=== PATIENT | female | born 1965 | race Caucasian/White ===

== ENCOUNTER 2023-11-19 07:33 | Outpatient (RCR) | payer MEDICARE, MEDICAID, SELFPAY ==
[2023-11-19 10:24] LABS: Basophils Percent Auto 0.5 % (0.2-2.0); Eosinophils Absolute Auto 0.9 10^3/uL (0.0-0.7); Eosinophils Percent Auto 11.6 % (0.9-7.0); Hematocrit 36.8 % (36.0-48.0); Immature Granulocytes Abs Auto 0.02 10^3/uL (0.00-0.03); Immature Granulocytes Pct Auto 0.3 % (0.0-0.5); Lymphocytes Absolute Auto 2.4 10^3/uL (1.2-3.8); Lymphocytes Percent Auto 29.6 % (20.5-60.0); Mean Corpuscular HGB Conc 32.6 g/dL (29.9-35.2); Mean Corpuscular Hemoglobin 31.1 pg (26.7-34.0); Mean Corpuscular Volume 95.3 fL (81.0-99.0); Mean Platelet Volume 8.9 fL (9.5-13.5); Monocytes Absolute Auto 0.4 10^3/uL (0.3-0.8); Monocytes Percent Auto 5.4 % (1.7-12.0); Neutrophils Absolute Auto 4.2 10^3/uL (1.4-6.5); Neutrophils Percent Auto 52.6 % (43.0-75.0); Platelet Count 273 10^3/uL (150-450); Red Blood Count 3.86 10^6/uL (4.20-5.40); Red Cell Distribution Width 13.4 % (11.0-15.0)
[2023-11-19 10:35] LABS: Estimated Average Glucose 140 mg/dL; Glycohemoglobin A1C 6.5 % (4.5-6.2)
[2023-11-19 11:47] LABS: Alanine Aminotransferase 16 U/L (14-59); Albumin Globulin Ratio 0.8; Albumin Level 3.2 g/dL (3.4-5.0); Alkaline Phosphatase 117 U/L (46-116); Aspartate Amino Transferase 14 U/L (15-37); BUN Creatinine Ratio 19.3; Bilirubin Total 0.2 mg/dL (0.2-1.0); Carbon Dioxide 24.6 mmol/L (21.0-32.0); Chloride 103 mmol/L (98-107); Chol HDL Ratio 4.7; Cholesterol 282 mg/dL (<=200); Estimated GFR (African America 45 (>=60 mL/min/1.73m^2); Estimated GFR (Non-African Ame 37 (>=60 mL/min/1.73m^2); Globulin 3.9 g/dL; Glucose 150 mg/dL (74-106); HDL Cholesterol 60 mg/dL (40-60); Potassium 4.6 mmol/L (3.5-5.1); Sodium 137 mmol/L (136-145); TSH W/ REFLEX FT4 2.571 uIU/mL (0.358-3.740); Total Protein 7.1 g/dL (6.4-8.2); Triglycerides 255 mg/dL (<=150)
== END 2023-12-18 11:50 | disposition home or self-care (01) ==
LOC: LAB 07:33
PROVIDERS: PCP Family Medicine; Visit Provider Nurse Practitioner
DX: I12.9 Hypertensive chronic kidney disease with stage 1 through stage 4 chronic kidney disease, or unspecified chronic kidney disease (principal); E03.9 Hypothyroidism, unspecified; E78.5 Hyperlipidemia, unspecified; E11.22 Type 2 diabetes mellitus with diabetic chronic kidney disease
CPT/HCPCS: 36415; 80053; 80061; 83036; 84443; 85025

== ENCOUNTER 2023-12-19 20:23 | Emergency (ER) | payer MEDICARE, MEDICAID, SELFPAY ==
[2023-12-19 20:32] VITALS: BP 200/100; PULSE 110; TEMP 36.8; O2SAT 97; BMI 31.0
--- NOTE | 2023-12-19 20:41 | ED.NAVMDI1 ---
HPI - Nausea/Vomiting/Diarrhea General Chief complaint: Nausea/Vomiting/Diarrhea Stated complaint: shortness of breath Time Seen by Provider: 12/19/23 20:40 Source: EMR and medical record Mode of arrival: ambulance History of Present Illness HPI Narrative: patient with very complicated history but limited as she is not exactly sure what she had and what was all done to her. 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 Required surgery. states she was comatose but not sure how long. Did require tracheostomy. States she has diplopia when looking to the left(chronic). neck is rigid and ROM is chronically limited. she states she has had problems swallowing for at least 3 weeks if not longer. States voice hoarse since she had trach. she has problems swallowing and a sensation of swelling of her throat for these three weeks. States water goes down fairly well . She has to eat small amounts in order to swallow her food. Even with this she gags and coughs most of the time but does manage to get the food down. Has same problem with swallowing of pills. feels like they get stuck. Did eat her dinner tonight. Ate a veggie burger. Usual problems swallowing but manage to complete her meal. While swallowing pills tonight she started gagging and coughing. given water by nursing and she gag and cough and started vomiting the water. Nursing called Squad. she arrives in no distress. voice is hoarse. Able to swallow her saliva but does appear uncomfortable doing so but states this is what she has been dealing with. Has a swallow study ordered for 12/22/23. She is not short of breath. No fever or nausea or abdominal pain Related Data Home Medications ?Medication ?Instructions ?Recorded ?Confirmed aspirin 325 mg tablet 325 mg PO DAILY 12/19/23 12/19/23 brimonidine 0.2 % eye drops 1 drp ophthalmic (eye) BID 12/19/23 12/19/23 carvedilol 12.5 mg tablet 12.5 mg PO Q12H 12/19/23 12/19/23 cholecalciferol (vitamin D3) 10 400 unit PO DAILY 12/19/23 12/19/23 mcg (400 unit) tablet (Vitamin D3) divalproex 500 mg tablet,delayed 500 mg PO DAILY 11/01/24 11/01/24 release docusate sodium 100 mg capsule 100 mg PO BID PRN constipation 12/19/23 12/19/23 duloxetine 30 mg capsule,delayed 30 mg PO DAILY 12/19/23 12/20/23 release duloxetine 60 mg capsule,delayed 60 mg PO DAILY 12/19/23 12/19/23 release ferrous sulfate 325 mg (65 mg 325 mg PO DAILY 12/19/23 12/19/23 iron) tablet fluocinonide 0.05 % topical 1 applic topical DAILY PRN rash 12/19/23 12/20/23 ointment guaifenesin 100 mg/5 mL oral liquid 200 mg PO Q6H PRN congestion 12/19/23 12/19/23 guaifenesin 600 mg tablet, 600 mg PO BID PRN congestion 12/19/23 12/19/23 extended release 12 hr (Mucinex) insulin glargine 100 unit/mL (3 15 unit subcut DAILY 12/19/23 12/19/23 mL) subcutaneous pen (Lantus Solostar U-100 Insulin) levothyroxine 100 mcg tablet 100 mcg PO DAILY 12/19/23 12/19/23 loperamide 2 mg capsule 2 mg PO Q6H PRN loose stool 12/19/23 12/19/23 metoclopramide HCl 5 mg tablet 5 mg PO TID PRN nausea and vomiting 12/19/23 12/19/23 multivitamin 1 tab PO DAILY 12/19/23 12/19/23 omeprazole 40 mg capsule,delayed 40 mg PO DAILY 12/19/23 12/19/23 release potassium chloride 20 mEq 20 meq PO DAILY 12/19/23 12/19/23 tablet,extended release(part/cryst) sucralfate 100 mg/mL oral 1 g PO TID 12/19/23 12/19/23 suspension (Carafate) tramadol 50 mg tablet 50 mg PO Q12H 12/19/23 12/19/23 Allergies Allergy/AdvReac Type Severity Reaction Status Date / Time cephalexin Allergy Unknown Verified 12/19/23 20:32 moxifloxacin (From Avelox) Allergy Unknown Verified 12/19/23 20:32 polyethylene glycol 3350 Allergy Unknown Verified 12/19/23 20:32 (From Miralax) Review of Systems ROS Status of ROS 10 or more systems reviewed and unremarkable except as noted in history and below PFSH PFSH Social History Little interest or pleasure in doing things: not at all Feeling down, depressed, or hopeless: not at all Exam Constitutional Vital Signs, click to edit/add: Last Vital Signs Temp 98.3 F 12/19/23 20:32 Pulse 84 12/19/23 21:13 Resp 20 12/19/23 21:13 BP 145/69 H 12/19/23 21:13 Pulse Ox 98 12/19/23 21:13 O2 Del Method Room Air 12/19/23 21:13 Common normals: oriented x3, healthy appearing, alert and well nourished Other: mild hoarse voice HENMT Common normals: normocephalic and head/scalp atraumatic Other: oral cavity is dry. No stridor Eye Common normals: PERRL and EOMs intact bilaterally Other: when she looks full robb to the left she describes diplopia( chronic). no nystagmus Respiratory Common normals: normal respiratory effort Cardio Common normals: regular rate, regular rhythm, S1 normal heart sound and S2 normal heart sound GI Common normals: Normal to inspection, nondistended, normoactive bowel sounds present, soft to palpation and non-tender Extremity Other: moves all 4 extremities. has brace RLE Neuro Common normals: oriented x3 and CN's II-XII intact bilaterally Psych Appearance: grossly normal Course Vital Signs Vital signs: Vital Signs Temperature 98.3 F 12/19/23 20:32 Pulse Rate 110 H 12/19/23 20:32 Respiratory Rate 22 H 12/19/23 20:32 Blood Pressure 200/100 H 12/19/23 20:32 Pulse Oximetry 97 12/19/23 20:32 Oxygen Delivery Method Room Air 12/19/23 20:32 Temperature 98.3 F 12/19/23 20:32 Pulse Rate 84 12/19/23 21:13 Respiratory Rate 20 12/19/23 21:13 Blood Pressure 145/69 H 12/19/23 21:13 Pulse Oximetry 98 12/19/23 21:13 Oxygen Delivery Method Room Air 12/19/23 21:13 MDM - Nausea/Vomiting/Diarrhea MDM Narrative Medical decision making narrative: patient presents with history of ongoing dysphagia for past 3 weeks. Tonight gagging and coughing and then post tussive emesis. Sent to ER by Nursing at senior living. Workup in the ER initiated to evaluate her complaint of a sensation of swelling of her throat. Oral exam unremarkable but limited as she is mallampati class 4. no stridor on exam. Chest xray to r/o aspiration and chest xray clear CT soft tissue neck without findings of any swelling or acute findings. Did have calcification at vocal cords. Patient resting comfortably in no distress and discharged back to senior living to continue workup for the cause of he dysphagia Lab Data Labs: Lab Results 12/19/23 Range/Units 21:10 WBC 7.8 (4.0-11.0) 10^3/uL RBC 3.55 L (4.20-5.40) 10^6/uL Hgb 11.1 L (12.0-16.0) g/dL Hct 34.0 L (36.0-48.0) % MCV 95.8 (81.0-99.0) fL MCH 31.3 (26.7-34.0) pg MCHC 32.6 (29.9-35.2) g/dL RDW 13.2 (11.0-15.0) % Plt Count 218 (150-450) 10^3/uL MPV 9.0 L (9.5-13.5) fL Neut % (Auto) 53.2 (43.0-75.0) % Lymph % (Auto) 35.0 (20.5-60.0) % [place] % (Auto) 6.4 (1.7-12.0) % Eos % (Auto) 4.9 (0.9-7.0) % Baso % (Auto) 0.4 (0.2-2.0) % Neut # (Auto) 4.2 (1.4-6.5) 10^3/uL Lymph # (Auto) 2.7 (1.2-3.8) 10^3/uL [place] # (Auto) 0.5 (0.3-0.8) 10^3/uL Eos # (Auto) 0.4 (0.0-0.7) 10^3/uL Baso # (Auto) 0.0 (0.0-0.1) 10^3/uL Abs Immat Gran (auto) 0.01 (0.00-0.03) 10^3/uL Imm/Tot Granulo (auto) 0.1 (0.0-0.5) % Sodium 140 (136-145) mmol/L Potassium 4.7 (3.5-5.1) mmol/L Chloride 109 H (98-107) mmol/L Carbon Dioxide 20.3 L (21.0-32.0) mmol/L Anion Gap 15.4 BUN 36.0 H (7.0-18.0) mg/dL Creatinine 1.52 H (0.55-1.02) mg/dL Est GFR ( Amer) 42 L (>=60 mL/min/1.73m^2) Est GFR (Non-Af Amer) 35 L (>=60 mL/min/1.73m^2) BUN/Creatinine Ratio 23.7 Glucose 222 H (74-106) mg/dL Lactate 2.0 (0.4-2.0) mmol/L Calcium 8.7 (8.5-10.1) mg/dL Total Bilirubin 0.2 (0.2-1.0) mg/dL AST 9 L (15-37) U/L ALT 13 L (14-59) U/L Alkaline Phosphatase 93 (46-116) U/L Total Protein 6.9 (6.4-8.2) g/dL Albumin 3.3 L (3.4-5.0) g/dL Globulin 3.6 g/dL Albumin/Globulin Ratio 0.9 Imaging Data Chest x-ray: Radiologist's impression: ITS Impressions Soft Tissue Neck CT 12/19/23 20:52 IMPRESSION: 1. Asymmetric calcification in the region of the left cricoarytenoid joint with subtle medialization of the posterior aspect of the vocal fold on the left. Recommend direct visualization. No enhancing masses are seen. No pathologic adenopathy. 2. Evidence of old posttraumatic and postsurgical changes in the cervical spine. No acute fracture is seen. Multilevel cervical and upper thoracic spondylosis is noted. Electronically authenticated by: KIKE MAGUIRE Date: 12/20/2023 00:33 Chest X-Ray 12/19/23 20:53 IMPRESSION: No acute cardiopulmonary process in the chest. Electronically authenticated by: FAVIO BALLESTEROS Date: 12/20/2023 00:18 Discharge Plan Discharge Chief Complaint: Nausea/Vomiting/Diarrhea Clinical Impression: Dysphagia Patient Disposition: Home, Self-Care Prescriptions / Home Meds: No Action aspirin 325 mg tablet 325 mg PO DAILY brimonidine 0.2 % drops 1 drp OPHTHALMIC (EYE) BID carvedilol 12.5 mg tablet 12.5 mg PO Q12H cholecalciferol (vitamin D3) [Vitamin D3] 10 mcg (400 unit) tablet 400 unit PO DAILY divalproex 500 mg tablet,delayed release (DR/EC) 500 mg PO DAILY docusate sodium 100 mg capsule 100 mg PO BID PRN (Reason: constipation) duloxetine 30 mg capsule,delayed release(DR/EC) 30 mg PO DAILY duloxetine 60 mg capsule,delayed release(DR/EC) 60 mg PO DAILY ferrous sulfate 325 mg (65 mg iron) tablet 325 mg PO DAILY fluocinonide 0.05 % ointment 1 applic TOPICAL DAILY PRN (Reason: rash) sucralfate [Carafate] 100 mg/mL suspension 1 g PO TID insulin glargine [Lantus Solostar U-100 Insulin] 100 unit/mL (3 mL) insulin pen 15 unit subcut DAILY levothyroxine 100 mcg tablet 100 mcg PO DAILY loperamide 2 mg capsule 2 mg PO Q6H PRN (Reason: loose stool) metoclopramide HCl 5 mg tablet 5 mg PO TID PRN (Reason: nausea and vomiting) guaifenesin [Mucinex] 600 mg tablet extended release 12hr 600 mg PO BID PRN (Reason: congestion) multivitamin Tablet 1 tab PO DAILY omeprazole 40 mg capsule,delayed release(DR/EC) 40 mg PO DAILY potassium chloride 20 mEq tablet,ER particles/crystals 20 meq PO DAILY guaifenesin 100 mg/5 mL liquid 200 mg PO Q6H PRN (Reason: congestion) tramadol 50 mg tablet 50 mg PO Q12H Print Language: Urdu Instructions: Dysphagia (ED) Additional Instructions: follow up with your doctor to continue workup to identify why food etc gets stuck going down into your esophagus Referrals: NERI SANTA [Physician] - 1 week
--- NOTE | 2023-12-19 20:52 | CT_ITS ---
The [address] [address] Patient Name: MEG FERNANDEZ MRN: [id number] date: 1965 Sex: F Assigned Patient Location: ED.MAIN Current Patient Location: Accession/Order Number: [id number] Exam Date: 12/19/2023 22:00 Report Date: 12/20/2023 00:33 At the request of: PHUONG WILLIS Procedure: CT soft tissue neck w con EXAM: CT soft tissue neck w con INDICATION: 58 years old; Female. Symptom/Location/Duration: Throat feels swollen. Cough and difficulty swallowing. Patient had swallowing study scheduled for next week. TECHNIQUE: CT examination of the neck. Axial, coronal and sagittal reformats were reviewed. 100 mL of Visipaque to 70 was injected intravenously without complication. Ionizing radiation dose reduced via iterative reconstruction/FBP blend and body size kV/mA adjustment. COMPARISON: None FINDINGS: AIRWAY: PARANASAL SINUSES AND MASTOID AIR CELLS: Postsurgical changes with prior maxillary antrostomy. Frontal sinuses are not completely included. Visualized sinuses are clear. Mastoids and middle ears are clear. NASOPHARYNX: Normal in appearance. OROPHARYNX: Normal in appearance. ORAL CAVITY: Normal in appearance. HYPOPHARYNX: Normal in appearance. LARYNX: There is calcification and bony overgrowth noted in the region of the left cricoarytenoid joint with medialization of the posterior aspect of the vocal fold on the left. Recommend direct visualization. TRACHEA: Patent. SOFT TISSUES: PARAPHARYNGEAL SPACE: Normal and symmetric. CAROTID SPACE: Normal in appearance. CHILD WELFARE SPECIALIST SPACE: Normal in appearance. RETROPHARYNGEAL SPACE: Normal in appearance. LYMPH NODES: No pathologic adenopathy. No matted or necrotic lymph nodes are present. GLANDS: PAROTID: Normal in appearance. SUBMANDIBULAR: Normal in appearance. THYROID: No thyroid nodule or adenopathy. MISCELLANEOUS: LUNG APICES: Clear. BONY CERVICAL SPINE: Postsurgical changes are present in the region of C1-C2 with findings consistent with fixation of old C1-2 fracture. There is bony trabeculation across the previous fracture. No acute fracture is seen. Cervical spondylosis is seen in the lower cervical spine with bulky bridging anterior osteophytes at C5-C6 and C6-C7. Multilevel facet degeneration is present. Degenerative changes are also seen in the visualized portion of the upper thoracic spine. VISUALIZED BRAIN: A portion the brain is included in the examination. No gross evidence of pathologic enhancement is seen, however the study does not include the entire brain and cannot exclude all brain pathology. VISUALIZED GLOBES: Retinal banding on the left. DENTITION: No periodontal disease. OTHER: None. CT/CT soft tissue neck w con IMPRESSION: 1. Asymmetric calcification in the region of the left cricoarytenoid joint with subtle medialization of the posterior aspect of the vocal fold on the left. Recommend direct visualization. No enhancing masses are seen. No pathologic adenopathy. 2. Evidence of old posttraumatic and postsurgical changes in the cervical spine. No acute fracture is seen. Multilevel cervical and upper thoracic spondylosis is noted. Electronically authenticated by: KIKE MAGUIRE Date: 12/20/2023 00:33
--- NOTE | 2023-12-19 20:53 | XR_ITS ---
The [address] [address] Patient Name: MEG FERNANDEZ MRN: [id number] date: 1965 Sex: F Assigned Patient Location: ED.MAIN Current Patient Location: ER Accession/Order Number: [id number] Exam Date: 12/19/2023 22:00 Report Date: 12/20/2023 00:18 At the request of: PHUONG WILLIS Procedure: XR chest 2V EXAMINATION:XR chest 2V INDICATION:cough COMPARISON:07/13/2021 TECHNIQUE:Frontal and lateral projections of the chest are submitted. FINDINGS: The cardiomediastinal silhouette is not enlarged. The pulmonary vascularity is within normal limits. No acute airspace disease is present in the chest. There is no costophrenic angle blunting. XR/XR chest 2V IMPRESSION: No acute cardiopulmonary process in the chest. Electronically authenticated by: FAVIO BALLESTEROS Date: 12/20/2023 00:18
[2023-12-19 21:13] VITALS: BP 145/69; PULSE 84; O2SAT 98
[2023-12-19 21:14] LABS: Basophils Percent Auto 0.4 % (0.2-2.0); Eosinophils Absolute Auto 0.4 10^3/uL (0.0-0.7); Eosinophils Percent Auto 4.9 % (0.9-7.0); Hemoglobin 11.1 g/dL (12.0-16.0); Immature Granulocytes Abs Auto 0.01 10^3/uL (0.00-0.03); Immature Granulocytes Pct Auto 0.1 % (0.0-0.5); Lymphocytes Absolute Auto 2.7 10^3/uL (1.2-3.8); Mean Corpuscular HGB Conc 32.6 g/dL (29.9-35.2); Mean Corpuscular Hemoglobin 31.3 pg (26.7-34.0); Mean Corpuscular Volume 95.8 fL (81.0-99.0); Monocytes Absolute Auto 0.5 10^3/uL (0.3-0.8); Monocytes Percent Auto 6.4 % (1.7-12.0); Neutrophils Absolute Auto 4.2 10^3/uL (1.4-6.5); Neutrophils Percent Auto 53.2 % (43.0-75.0); Platelet Count 218 10^3/uL (150-450); Red Blood Count 3.55 10^6/uL (4.20-5.40); Red Cell Distribution Width 13.2 % (11.0-15.0); White Blood Count 7.8 10^3/uL (4.0-11.0)
[2023-12-19 21:31] LABS: Alanine Aminotransferase 13 U/L (14-59); Albumin Globulin Ratio 0.9; Albumin Level 3.3 g/dL (3.4-5.0); Alkaline Phosphatase 93 U/L (46-116); Anion Gap 15.4; Aspartate Amino Transferase 9 U/L (15-37); BUN Creatinine Ratio 23.7; Bilirubin Total 0.2 mg/dL (0.2-1.0); Calcium 8.7 mg/dL (8.5-10.1); Carbon Dioxide 20.3 mmol/L (21.0-32.0); Chloride 109 mmol/L (98-107); Estimated GFR (African America 42 (>=60 mL/min/1.73m^2); Estimated GFR (Non-African Ame 35 (>=60 mL/min/1.73m^2); Globulin 3.6 g/dL; Glucose 222 mg/dL (74-106); Potassium 4.7 mmol/L (3.5-5.1); Sodium 140 mmol/L (136-145); Total Protein 6.9 g/dL (6.4-8.2)
[2023-12-20 02:10] VITALS: BP 135/72; PULSE 80; O2SAT 97
--- OUTSIDE RECORDS SUMMARY | 2023-12-22 03:38 | XMS_ITS | CCD ---
Author Organization [facility] Care Team Providers Care Senior Solutions Engineer Name Role Phone Neri Santa Unavailable Pili Gilliam Unavailable [phone] Reji Miramontes Unavailable Unavailable Unavailable Unavailable Luis Miguel Kaur Unavailable Neri Santa Unavailable Luis Miguel Kaur Unavailable Tisha Arriaga Unavailable Adilson Hernandez Unavailable [phone] Kartik Mejia Unavailable Pili Gilliam Admitting Unavailable Pili Gilliam Attending Unavailable Pili Gilliam Admitting Unavailable Pili Gilliam Attending Unavailable Pili Gilliam Admitting Unavailable Pili Gilliam Attending Unavailable Pili Gilliam Admitting Unavailable Pili Gillima Attending Unavailable Martha Yan Admitting Unavailable Martha Yan Attending Unavailable Ariel Franklin Attending Unavailable Ariel Franklin Admitting Unavailable Joanne Garvin Admitting Unavaila Joanne Carvajal Attending Unavaila Joanne Carvajal Admitting Unavaila ble Joanne Garvin Attending Unavaila ble Neri Santa Primary Care Provider Pili Gilliam Unavailable [phone] Reji Miramontes Unavailable Neri Santa Primary Care Provider GilliamPili antunez Unavailable Reji Miramontes Don Unavailable HOUSE, NERI P Primary Care Unavailable ANDRES LUBIN Attending Un available HOUSE, NERI Admitting Unavailable HOUSE, NERI Attending Unavailable HOUSE, NERI Consulting Unavailable HOUSE, NERI Primary Care Unavailable ZIEBER, LUIS R Consulting Unavailable HOUSE, NERI Primary Care Unavailable HOUSE, NERI Admitting Unavailable HOUSE, NERI Attending Unavailable HOUSE, NERI Consulting Unavailable ZIEBER, LUIS R Consulting Unavailable House, Sr Neri P Primary Care Provider Reji Miramontes Don Unavailable House DONeri P [facility] Fe SOMMER, Reji PALACIOS Don Unavailable MARIELA JR., JEF Attending Unavailable HOUSE, NERI P Primary Care Unavailable MARIELA JR., JEF Attending Unavailable HOUSE, NERI P Primary Care Unavailable MARIELA JR., JEF Attending Unavailable HOUSE, NERI P Primary Care Unavailable MARIELA JR., JEF Attending Unavailable HOUSE, NERI P Primary Care Unavailable MARIELA JR., JEF Attending Unavailable HOUSE, NERI P Primary Care Unavailable MARIELA JR., JEF Attending Unavailable HOUSE, NERI P Primary Care Unavailable MARIELA JR., JEF Attending Unavailable HOUSE, NERI P Primary Care Unavailable MARIELA JR., JEF Attending Unavailable HOUSE, NERI P Primary Care Unavailable MARIELA JR., JEF Attending Unavailable HOUSE, NERI P Primary Care Unavailable MARIELA JR., JEF Attending Unavailable HOUSE, NERI P Primary Care Unavailable MARIELA JR., JEF Attending Unavailable HOUSE, NERI P Primary Care Unavailable MARIELA JR., JEF Attending Unavailable HOUSE, NERI P Primary Care Unavailable MARIELA JR., JEF Attending Unavailable HOUSE, NERI P Primary Care Unavailable MARIELA JR., JEF Attending Unavailable HOUSE, NERI P Primary Care Unavailable MARIELA JR., JEF Attending Unavailable HOUSE, NERI P Primary Care Unavailable MARIELA JR., JEF Attending Unavailable HOUSE, NERI P Primary Care Unavailable HOUSE, NERI P Primary Care Unavailable BAUGH, TIA PALMIRA Attending Unavailabl e PHYSICIAN PHYSICIAN, PCP PCP UNKNOWN~[id number] Primary Care Unavailable ARNOLD, KIKE Consulting Unavailable ANABELL LANG Attending Unavailable ANABELL LANG Admitting Unavailable BANNING, KIKE Consulting Unavailable BANNING, KIKE Consulting Unavailable BAUERLE, CLARISA Consulting Unavailable BAUERLE, CLARISA Consulting Unavailable BAUERLE, CLARISA Consulting Unavailable VAISHALI ERAZO Referring Unavailable PHYSICIAN PHYSICIAN, PCP PCP UNKNOWN~[id number] Primary Care Unavailable House DO, Neri P Primary Care Provider David VIVEROS, Adilson Rizo Unavailable Kartik Mejia MD Unavailable [phone] Tisha Arriaga MD Unavailable Luis Miguel Kaur MD Unavailable Lucas OD, Chris A Unavailable Kartik Mejia MD Unavailable ARINA NERI P Primary Care Unavailable TORI HART Attending Unavailable JEF SIERRA JR. Admitting Unavailable HOUSE, NERI P Primary Care Unavailable TORI HART Referring Unavailable HOUSE, NERI P Primary Care Unavailable NBA FORREST Admitting Unavaila MAC Burkett Consulting Unavailable LEILA LINTON Attending Unavailable House DO, Sr Neri P Primary Care Provider House DO, Sr Neri P Primary Care Provider [phone] JERRY POZO Attending Unavailable HERCHER, JOHNY Referring Unavailable HOUSE, NERI Primary Care Unavailable JERRY POZO Admitting Unavailable KARLOS Shen Attending Provider HOUSE, NERI P Primary Care Unavailable SHARON HERNANDEZ Attending Unavailabl e SELF, SELF Referring Unavailable HOUSE, NERI P Primary Care Unavailable SHARON HERNANDEZ Attending Unavailabl e SELF, SELF Referring Unavailable HOUSE, NERI P Primary Care Unavailable OLGA LIDIA MATOS Attending Unavailable SELF, SELF Referring Unavailable HOUSE, NERI P Primary Care Unavailable HOUSE, NERI P Referring Unavailable NURYS THORNTON Attending Unavailable SHARON HERNANDEZ Attending Unavailabl e HOUSE, NERI P Primary Care Unavailable SELF, SELF Referring Unavailable HOUSE, NERI P Primary Care Unavailable QI KRYSTYNA Referring Unavailable KOSTYK, DESTINY K Attending Unavailable HOUSE, NERI P Primary Care Unavailable QI, KRYSTYNA Referring Unavailable ANAM BULLARD Attending Unavailable HOUSE, NERI P Primary Care Unavailable MATSANIA FRAGOSO Attending Unavailable QI, KRYSTYNA Referring Unavailable HOUSE, NERI P Primary Care Unavailable QI, KRYSTYNA Referring Unavailable GILES RUIZ Attending Unavailable HOUSE, NERI P Primary Care Unavailable QI, KRYSTYNA Referring Unavailable KATAKI, BENJI Attending Unavailable QI, KRYSTYNA Referring Unavailable KATAKI, BENJI Attending Unavailable HOUSE, NERI P Primary Care Unavailable SELF, SELF Referring Unavailable OLGA LIDIA MATOS Attending Unavailable HOUSE, NERI P Primary Care Unavailable HOUSE, NERI P Primary Care Unavailable BENAMELIS, NURYS R Referring Unavailable JOVON BOWERS Attending Unavailable SHIRAZ, SANIA Attending Unavailable QI, KRYSTYNA Referring Unavailable HOUSE, NERI P Primary Care Unavailable HOUSE, NERI P Primary Care Unavailable SELF, SELF Referring Unavailable OLGA LIDIA MATOS Attending Unavailable HOUSE, NERI P Primary Care Unavailable QI, KRYSTYNA Referring Unavailable DESTINY HUSSEIN K Attending Unavailable HOUSE, NERI P Primary Care Unavailable SHARON HERNANDEZ Attending Unavailabl e SELF, SELF Referring Unavailable DAVIDSHARON ZURITA Attending Unavailabl e SELF, SELF Referring Unavailable HOUSE, NERI P Primary Care Unavailable HOUSE, NERI P Primary Care Unavailable SHARON HERNANDEZ Attending Unavailabl e SELF, SELF Referring Unavailable HOUSE, NERI P Primary Care Unavailable HOUSE, NERI P Primary Care Unavailable HOUSE, NERI P Referring Unavailable BENAMENURYS HAYS R Attending Unavailable HOUSE, NERI P Primary Care Unavailable SELF, SELF Referring Unavailable OLGA LIDIA MATOS Attending Unavailable QI, KRYSTYNA Referring Unavailable KATAKI, BENJI Attending Unavailable HOUSE, NERI P Primary Care Unavailable Ganga Savage MD Primary Care Provider [phone] Rufus Shen Attending Unavailable Rufus Shen Admitting Unavailable Ganga Savage MD Primary Care Provider GANGA SAVAGE Primary Care Unavailable ALISIA, ALISIA VAISHALI Referring Unavailable ALISIA, ALISIA VAISHALI Referring Unavailable GANGA SAVAGE Primary Care Unavailable ALISIA, ALISIA VAISHALI Referring Unavailable GANGA SAVAGE Primary Care Unavailable House Neri VIVEROS Primary Care Provider NADIA CHAUDHARY Attending Unavailable Jami Onofre Attending Unavailable Jami Onofre Attending Unavailable Jami Onofre Attending Unavailable RUFUS SHEN Admitting Unavailable RUFUS SHEN Attending Unavailable ALAHMAD Alaa Admitting Unavailable ALAHMANNA Alaa Attending Unavailable Yaritza Evans Consulting Unavailable Wil Putnam Attending Unavailable Michelle MARMOLEJO Admitting Unavailable Nathan Ambrosio, LARA Shi Consulting Unavail able Yaritza Evans Consulting Unavailable Wil Putnam Attending Unavailable Giulia Finnegan Talal Consulting Unavaila ble Nettie BOOKER Admitting Unavailable MD Giulia Finnegan Talal Consulting Unava ilable Sarminmagdalena, Giulia Talal Consulting Unavaila ble Sarminmagdalena, Giulia Talal Consulting Unavaila ble Joanne Templeton Attending Unavailable SarminiGiulia Talal Attending Unavaila ble Sarmini, Giulia Talal Referring Unavaila ble Sarmini, Giulia Talal Admitting Unavaila ble Sarmini, Giulia Talal Attending Unavaila ble Sarmini, Giulia Talal Referring Unavaila ble Sarmini, Giulia Talal Admitting Unavaila ble MIGUEL BARKSDALE Admitting Unavail able MIGUEL BARKSDALE Attending Unavail able RUFUS SHEN Referring Unavailable MIGUEL BARKSDALE Referring Unavail able JAY INTERIANO Admitting Unavailable JAY INTERIANO Attending Unavailable RUFUS SHEN Admitting Unavailable RUFUS SHEN Attending Unavailable Giulia Finnegan Attending Unavaila Ina Reich Attending Unavailable Allergies Allergy Classification Reported Allergen(s) Allergy Type Date of Onset Reaction(s) Facility Cephalosporins (antibiotic) (3 sources) Cephalexin Drug Allergy 04-07-19 18 Itching [facility] Opioid Agonists (3 sources) tapentadol Drug Allergy 04-07-19 18 Unknown [facility] Quinolones (antibiotic) (3 sources) moxifloxacin Drug Allergy 04-07-19 18 Itching, Swelling, Rash, Other (See Comments) [facility] (20 sources) cephalexin; Translations: [CEPHALEXIN] Propensity to adverse reactions to drug 12-02-19 12 Itching, Rash [facility] (20 sources) moxifloxacin; Translations: [MOXIFLOXACIN] Propensity to adverse reactions to drug 12-02-19 12 Itching, Swelling, Rash, Other (See Comments) [facility] (20 sources) tapentadol; Translations: [TAPENTADOL] Propensity to adverse reactions to drug 04-07-19 18 Unknown [facility] (15 sources) polyethylene glycol 3350 / potassium chloride / sodium bicarbonate / sodium chloride / sodium sulfate Drug Allergy 10-29-19 17 [facility] Work Phone: (20 sources) tapentadol Drug Allergy 10-31-19 16 Other (See Comments) [facility] Work Phone: (3 sources) Cephalexin; Translations: [Keflex] Drug Allergy 06-23-19 10 [facility] Repository (3 sources) moxifloxacin; Translations: [Avelox] Drug Allergy 06-23-19 10 [facility] Rep[facility] (3 sources) tapentadol; Translations: [Nucynta] Drug Allergy 06-30-19 13 [facility] Repository (1 source) Bacitracin / Neomycin / Polymyxin B Drug Allergy 06-23-19 10 The [facility] Repository (1 source) Calcium oxide Drug Allergy 06-23-19 10 [facility] (1 source) POLYETHYLENE GLYCOL 3350 Drug Allergy 08-21-19 22 [facility] Rep[facility] (1 source) Sulfamethoxazole / Trimethoprim Drug Allergy 06-23-19 10 [facility] Rep[facility] (1 source) fentaNYL; Translations: [fentaNYL] Drug Allergy [facility] Repository (1 source) POLYETHYLENE GLYCOL 3350 / Potassium Chloride / Sodium Bicarbonate / Sodium Chloride / sodium sulfate; Translations: [GoLYTELY] Drug Allergy [facility] Repository (1 source) Shellfish; Translations: [shellfish] Propensity to adverse reactions (disorder) [facility] Repository (1 source) Shrimp product; Translations: [Shrimp] Propensity to adverse reactions (disorder) [facility] Repository Medications Current Medications Medication Drug Class(es) Dates Sig (Normalized) Sig (Original) acetaminophen 300 mg / codeine phosphate 30 mg oral tablet (20 sources) Opioid Agonist Start: 01-15-2017 End: 06-28-2021 take 1 tablet by mouth twice daily as needed for pain acetaminophen-cod eine 300-30 MG Tab per tablet TAKE 1 TABLET BY MOUTH TWICE A DAY NEEDED FOR PAIN 0 01/15/2017 Active Start: 01-15-2017 acetaminophen- codeine 300-30 MG Tab per tablet hasn't used for a while patient reports 0 01/15/2017 Active acetaminophen-co deine (TYLENOL #3) 300-30 mg per tablet every 6 (six) hours as needed. 0 Active acetaZOLAMIDE 250 mg oral tablet (6 sources) Carbonic Anhydrase Inhibitor Start: 04-24-2018 End: 06-28-2021 take 1 tablet by mouth twice daily acetaZOLAMIDE (DIAMOX) 250 MG tablet Take 250 mg by mouth 2 times daily 0 04/24/2018 06/28/2021 Discontinued (LIST CLEANUP) bisacodyl 10 mg rectal suppository (3 sources) Stimulant Laxative Start: 07-29-2021 End: 10-09-2021 Start: 06-28-2021 take 5 mg by mouth o nce daily as needed 5 mg, Oral, DAILY PRN, Starting on [facility] 06/28/21 at 2107, Until Discontinued, Constipation First line therapy for constipation. brimonidine tartrate 1.5 mg/ml ophthalmic solution (20 sources) alpha-Adrenergic Agonist Start: 11-15-2019 take 1 drop(s) into the eye(s) twice daily brimonidine (ALPHAGAN P) 0.15 % ophthalmic solution Apply 1 drop to eye 2 times daily Left eye 0 11/15/2019 Active Start: 11-15-2019 take 1 drop(s) into the eye(s) twice daily brimonidine (ALPHAGAN) 0.15 % ophthalmic solution Administer 1 drop into the left eye 2 (two) times a day . 0 11/15/2019 Active calcium carbonate 600 mg / c holecalciferol 0.01 mg oral tablet (6 sources) Vitamin D Start: 07-20-2021 Start: 07-15-2021 take 2 tablets by mo cth once daily calcium carbonate-vitamin D3 (CALTRATE) 600-400 MG-UNIT TABS per tab Take 2 tablets by mouth daily 60 tablet 1 07/20/2021 Active chlordiazePOXIDE hydrochlori de 5 mg oral capsule (3 sources) Benzodiazepine Start: 08-08-2021 End: 09-09-2021 Start: 08-05-2021 End: 08-08-2021 take 10 mg by mouth three times daily 10 mg, Oral, 3 TIMES DAILY, First dose on 08/05/21 at 1400, Until Discontinued cholecalciferol 0.125 mg oral capsule (9 sources) Vitamin D Start: 03-05-2018 End: 06-28-2021 take 1 capsule by mouth once daily Cholecalciferol (VITAMIN D3) 5000 units CAPS Take 5,000 Units by mouth daily 0 03/05/2018 06/28/2021 Discontinued (LIST CLEANUP) Continuous Blood Gluc Sensor (FreeStyle Juanpablo 14 Day Sensor) Misc (7 sources) Start: 03-16-2021 Continuous Blo od Gluc Sensor (FreeStyle Juanpablo 14 Day Sensor) Misc Inject 2 Each under the skin every 14 days. 2 Each 3 03/16/2021 Active Start: 08-14-2020 Continuous Blo od Gluc Sensor (FreeStyle Juanpablo 14 Day Sensor) Misc Inject 2 Each under the skin every 14 days. 2 Each 3 08/14/2020 Active 100 ml dexmedetomidine 0.004 mg/ml injection (2 sources) Central alpha-2 Adrenergic Agonist Start: 08-01-2021 dorzolamide 20 mg/ml / timolol 5 mg/ml ophthalmic solution (20 sources) Carbonic Anhydrase Inhibitor, beta-Adrenergic Chemo Start: 01-15-2021 take 1 drop(s) into the eye(s) twice daily dorzolamide-timol ol 22.3-6.8 MG/ML Solution ophthalmic solution Place 1 drop in both eyes 2 times daily. 10 mL 0 01/15/2021 Active Start: 09-04-2020 take 1 drop(s) into the eye(s) twice daily dorzolamide-timolol 22.3-6.8 MG/ML Solution ophthalmic solution Place 1 drop in both eyes 2 times daily. Generic. 90 day supply. 10 mL 3 09/04/2020 Active Start: 08-08-2017 Start: 08-08-2017 take 1 drop(s) into the eye(s) twice daily dorzolamide-timolol (COSOPT) 22.3-6.8 MG/ML ophthalmic solution Place 1 drop into the right eye 2 times daily 0 08/08/2017 Active Start: 08-08-2017 End: 01-07-2018 take 1 drop(s) into the eye(s) twice daily dorzolamide-timoloL (COSOPT) 22.3-6.8 mg/mL ophthalmic solution Apply 1 drop to eye 2 (two) times a day . 0 08/08/2017 Active ezetimibe 10 mg oral tablet (7 sources) Dietary Cholesterol Absorption Inhibitor Start: 03-20-2021 take 1 tablet by mouth once daily ezetimibe (Zetia) 10 MG tablet Take 1 tablet by mouth daily. 30 tablet 3 03/20/2021 Active Start: 05-18-2020 take 1 tablet by [place] once daily ezetimibe (Zetia) 10 MG tablet Take 1 tablet by mouth daily. 30 tablet 3 05/18/2020 Active famotidine 20 mg oral tablet (6 sources) Histamine-2 Receptor Antagonist Start: 08-10-2021 famotidine (PEPCID) 20 MG tablet 1 tablet by Per NG tube route 2 times daily 60 tablet 3 08/10/2021 Active Start: 08-10-2021 Start: 08-02-2021 20 mg, Per NG tube, 2 TIMES DAILY, First dose on Nohemy 08/02/21 at 2100, Until Discontinued IV to PO change per P&T policy Freestyle Juanpablo 14 Day Reade r Essie (5 sources) Start: 01-05-2018 End: 01-05-2018 Freestyle Juanpablo 14 Day Senso r Misc (6 sources) Start: 01-20-2018 Start: 01-05-2018 End: 01-20-2018 Start: 01-05-2018 End: 01-05-2018 glipiZIDE 5 mg oral tablet (9 sources) Sulfonylurea End: 06-28-2021 take 1 tablet by mouth twice daily before mealtime glipiZIDE (GLUCOTROL) 5 MG tablet Take 5 mg by mouth 2 times daily (before meals) 0 06/28/2021 Discontinued (LIST CLEANUP) hydrocortisone 10 mg/ml rectal cream (4 sources) Corticosteroid hydrocortisone 1 % cream Apply topically 2 times daily as needed Apply topically 2 times daily. Rash on arms 0 Active hydrocortisone 1 % cream Apply topically 2 times daily as needed Apply topically 2 times daily. Rash on arms 0 Active 200 ml immunoglobulin g, hum an 100 mg/ml injection (14 sources) Human Immunoglobulin G immune gl obulin, human, 20 GM/200ML 15 g by Intravenous route every 14 days. 15 grams 0 Active immune globulin, human, 20 GM/200ML Solution 400 mg/kg by Intravenous route As directed PRN. 0 Active immune globulin, human, 20 GM/200ML 15 g by Intravenous route every 21 days. 15 grams 0 Active 3 ml insulin degludec 100 unt/ml pen injector (20 sources) Insulin Analog Start: 03-20-2021 Insulin Deglud ec (Tresiba FlexTouch) 100 UNIT/ML Solution Pen-injector injection Indications: Type 1 diabetes mellitus with diabetic neuropathy Inject 25 Units under the skin at bedtime. 900 mL 3 03/20/2021 Active Start: 06-23-2020 End: 09-28-2020 Insulin Degludec (Tresiba Fl exTouch) 100 UNIT/ML Solution Pen-injector injection 3 samples given--Lot [id number], exp 10/2021 3 Prefilled Pen/Syringe 0 06/23/2020 Active Start: 07-21-2019 Insulin Deglud ec (Tresiba FlexTouch) 100 UNIT/ML Solution Pen-injector injection Indications: Type 1 diabetes mellitus with diabetic neuropathy Inject 25 Units under the skin at bedtime. 3 Prefilled Pen/Syringe 4 07/21/2019 Active Start: 05-25-2018 End: 06-28-2021 Insulin Degludec (TRESIBA FL EXTOUCH) 100 UNIT/ML SOPN Inject 300 Units into the skin nightly 0 05/25/2018 06/28/2021 Discontinued (LIST CLEANUP) Start: 01-19-2018 Insulin Deglud ec (TRESIBA FLEXTOUCH) 100 UNIT/ML Solution Pen-injector injection Inject 20 Units under the skin at bedtime. 3 Prefilled Pen/Syringe 4 01/19/2018 Active insulin degludec (Tresiba FlexTouch U-100) 100 unit/mL (3 mL) InPn Inject under the skin . 0 Active insulin detemir (4 sources) Insulin Analog Insulin Detemir (LEVEMIR SC) Inject 12 Units into the skin at bedtime 0 Active insulin lispro (HUMALOG KWIKPEN) 100 UNIT/ML pen (1 source) insulin lispro (HUMALOG KWIKPEN) 100 UNIT/ML pen Inject 30 Units into the skin 3 times daily (before meals) Sliding scale coverage- Use less than 30 units with sliding scale 0 Active lidocaine 0.04 mg/mg medicated patch (5 sources) Antiarrhythmic, Amide Local Anesthetic Start: apply 1 dose transdermal route every twelve hours 1 patch, TransDERmal, Administer over 12 Hours, DAILY, First dose (after last modification) on Fri07/03/21 at 0030 Apply patch to left posterior neck. Pa tch may remain in place for up to 12 hours in any 24 hour period. 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 Max of 12 hours of application then remove. 30 patch 1 09/26/2020 Active 3 ml liraglutide 6 mg/ml pen injector (6 sources) GLP-1 Receptor Agonist Start: 10-09-2017 VICTOZA 18 MG/3ML Solution Pen-injector injection INJECT 1.8 MG SUBCUTANEOUSLY ONCE DAILY 3 Syringe 3 10/09/2017 Active 1 ml LORazepam 2 mg/ml injection (6 sources) Benzodiazepine Start: 08-10-2021 End: 09-09-2021 Start: 07-28-2021 End: 07-28-2021 1 dose, Starting on Sat 07/28 at 0203, Until 07/28/21 at 0206 Helen Levine: cabinet override Helen Levine: cabinet override Start: 07-28-2021 2 mg, IntraVEN ous, EVERY 4 HOURS PRN, Starting on 07/28/21 at 0201, Until Discontinued, Anxiety Start: 07-27-2021 End: 07-27-2021 2 mg, IntraVENous, ONCE, 1 d ose, On Fri07/27/21 at 2045 Start: 07-24-2021 End: 07-24-2021 0.5 mg, IntraVENous, ONCE, 1 dose, On Fri07/24/21 at 1015 Start: 07-04-2021 End: 07-04-2021 0.5 mg, IntraVENous, ONCE, 1 dose, On Fri07/04/21 at 1845 1 ml morphine sulfate 2 mg/ml cartridge (1 source) Opioid Agonist Start: 07-05-2021 take 1 mg by mouth every four hours as needed 1 mg, IntraVENous, EVERY 4 HOURS PRN, Starting on Nohemy 07/05/21 at 1130, Until Discontinued, Pain Severe (7-10) If oral and IV narcotics ordered, use oral first and only use IV if oral is ineffective or cannot take oral. Do Not give oral and IV within 1 hour of each other unless specifically ordered. Multiple Vitamin (MULTI-DAY PO) (13 sources) take 1 tablet by mouth once Multiple Vitamin (MULTI-DAY PO) take 1 tablet by mouth daily.. 0 Active take 1 tablet by mouth once Mult iple Vitamin (MULTI-DAY PO) take 1 tablet by mouth daily.. Active Multiple Vitamins-Minerals (MULTIVITAMIN ADULT PO) (7 sources) take 1 tablet by mouth once daily Multiple Vitamins-Minerals (MULTIVITAMIN ADULT PO) Take 1 tablet by mouth daily 0 Active MULTIVITAMIN ORAL (20 sources) MULTIVITAMIN ORA L daily. 0 Active MULTIVITAMIN ORA L daily. Active mupirocin 0.02 mg/mg topical ointment (20 sources) RNA Synthetase Inhibitor Antibacterial Start: 05-29-2018 End: 05-08-2021 mupirocin (BACTROBAN) 2 % ointment Apply topically 3 (three) times a day for 7 days . 30 g 0 05/01/2021 05/08/2021 Active nafcillin 2000 mg injection (1 source) Penicillin-class Antibacterial Start: 08-10-2021 End: 08-23-2021 nafcillin infusion (1 source) Start: 07-09-2021 End: 08-20-2021 nafcillin infusion Infuse 2,000 mg intravenously every 4 hours Till 08/20/21 Then stop iv AB and pull the line Cbc diff and creat q MWF while on this AB Compound per protocol 504 g 0 07/09/2021 08/20/2021 Active naproxen 500 mg oral tablet (6 sources) Nonsteroidal Anti-inflammatory Drug Start: 12-15-2017 take 1 tablet by mouth three times daily at mealtime naproxen 500 MG Tab tablet Take 1 tablet by mouth 3 times daily with meals. 20 tablet 0 12/15/2017 Active netarsudil 0.2 mg/ml ophthalmic solution (3 sources) Rho Kinase Inhibitor Start: 02-15-2021 take 1 drop(s) into the eye(s) at bedtime Netarsudil Dimesylate (Rhopressa) 0.02 % Solution Place 1 drop in both eyes at bedtime. 5 mL 0 02/15/2021 Active Start: 10-11-2020 Netarsudil Dim esylate (Rhopressa) 0.02 % Solution Samples of this drug were given to the patient. 5 mL 0 10/11/2020 Active Start: 11-21-2017 End: 01-07-2018 take 1 drop(s) into the eye(s) at bedtime Netarsudil Dimesylate (RHOPRESSA) 0.02 % Solution Place 1 drop in both eyes at bedtime. 1 Bottle 0 11/21/2017 01/07/2018 Discontinued netarsudil mesylate 0.285 mg/ml ophthalmic solution (4 sources) Start: 11-21-2017 take 1 drop(s) into the eye(s) at bedtime Netarsudil Dimesylate (RHOPRESSA) 0.02 % Solution Place 1 drop in both eyes at bedtime. 1 Bottle 0 11/21/2017 Active NONFORMULARY (4 sources) NONFORMULARY Tub e feedings per ng tube at 65/hr 0 Active nortriptyline 25 mg oral capsule (6 sources) Tricyclic Antidepressant Start: 12-24-2017 nortriptyline 25 MG Cap capsule Week 1 - 1 tab QHS. Week 2 - 2 tabs QHS. Week 3 onwards - 3 tabs QHS 90 capsule 5 12/24/2017 Active oxyCODONE hydrochloride 5 mg oral tablet (2 sources) Opioid Agonist Start: 08-01-2021 End: 08-11-2021 pioglitazone 30 mg oral tablet (6 sources) Peroxisome Proliferator Receptor alpha Agonist, Peroxisome Proliferator Receptor gamma Agonist, Thiazolidinedione Start: 07-21-2017 take 1 tablet by mouth once daily pioglitazone 30 MG Tab tablet Indications: Type 2 diabetes mellitus with diabetic polyneuropathy, without long-term current use of insulin Take 1 tablet by mouth daily. 90 tablet 1 07/21/2017 Active QUEtiapine 25 mg oral tablet (7 sources) Atypical Antipsychotic Start: 08-08-2021 take 1 tablet by mouth once daily QUEtiapine (SEROQUEL) 25 MG tablet Take 1 tablet by mouth nightly 60 tablet 3 08/10/2021 Active Start: 08-07-2021 End: 08-08-2021 take 50 mg by mouth once daily 50 mg, Oral, NIGHTLY, F irst dose (after last modification) on Fri08/07/21 at 2100, Until Discontinued 1000 ml sodium chloride 9 mg/ml injection (20 sources) Start: 07-29-2021 IntraVENous, a t 10 mL/hr, CONTINUOUS, Starting on Fri07/29/21 at 0830 Start: 07-26-2021 End: 08-02-2021 10 mL, IntraVENous, PRN, Sta rting on Nohemy 07/26/21 at 1744, Until Nohemy 08/02/21 at 1359, Line Care For Line Patency: Peripheral IV = 5 mL; Midline or Central Line = 10 mL/lumen. If following IV push medication, administer flush at same rate as the IV push. Flush volume is determined by type of infusion therapy being given. For non-viscous solutions use: Peripheral IV = 5 mL Midline or Central Line = 10 mL/lumen For viscous solutions (i.e. blood components, parenteral nutrition, contrast media, or after obtaining blood sample) use: Peripheral IV = 10 mL Midline or Central Line = 20 mL/lumen Start: 07-24-2021 End: 07-26-2021 IntraVENous, at 10 mL/hr, CO NTINUOUS, Starting on Fri07/25/21 at 2145 Start: 07-18-2021 End: 07-18-2021 1,000 mL (16.5 mL/kg), Intra VENous, at 1,935.5 mL/hr, Administer over 31 Minutes, ONCE, On Fri07/18/21 at 1300, For 1 dose Start: 07-14-2021 End: 07-24-2021 take 1 dose intravenously twice daily 5-40 mL, IntraVENous, EVERY 12 HOURS SCHEDULED (2 times per day), First dose on Fri07/14/21 at 2100, Until Discontinued For Line Patency: Peripheral IV = 5 mL; Midline or Central Line = 10 mL/lumen. If following IV push medication, administer flush at same rate as the IV push. Flush volume is determined by type of infusion therapy being given. For non-viscous solutions use: Peripheral IV = 5 mL Midline or Central Line = 10 mL/lumen For viscous solutions (i.e. blood components, parenteral nutrition, contrast media, or after obtaining blood sample) use: Peripheral IV = 10 mL Midline or Central Line = 20 mL/lumen Start: 07-14-2021 End: 07-16-2021 IntraVENous, at 75 mL/hr, CO NTINUOUS, Starting on 07/14/21 at 1700 For piggyback infusion, administer at same rate as piggyback for a total of 25 mL. Enter 25 mL into dose field and piggyback rate into rate field of order. If piggyback is infusing at a rate less than 100 mL/hr, enter 25 mL into dose field and 100 mL/hr into rate field of order. For KVO fluids, enter rate of 20 mL/hr or less into rate field of order. Start: 07-14-2021 take 5-40 mL intrave nously once as needed 5-40 mL, IntraVENous, PRN, Starting on 07/14/21 at 1639, Until Discontinued, Line Care, After every IV line use For Line Patency: Peripheral IV = 5 mL; Midline or Central Line = 10 mL/lumen. If following IV push medication, administer flush at same rate as the IV push. Flush volume is determined by type of infusion therapy being given. For non-viscous solutions use: Peripheral IV = 5 mL Midline or Central Line = 10 mL/lumen For viscous solutions (i.e. blood components, parenteral nutrition, contrast media, or after obtaining blood sample) use: Peripheral IV = 10 mL Midline or Central Line = 20 mL/lumen Start: 07-05-2021 IntraVENous, a t 5-250 mL/hr, PRN, if patient receiving piggyback infusions and maintenance fluids are not ordered OR KVO fluids to protect IV site / prevent frequent line interruptions/ long duration, Starting on Fri07/06/21 at 2217 For piggyback infusion, administer at same rate as piggyback for a total of 25 mL. Enter 25 mL into dose field and piggyback rate into rate field of order. If piggyback is infusing at a rate less than 100 mL/hr, enter 25 mL into dose field and 100 mL/hr into rate field of order. For KVO fluids, enter rate of 20 mL/hr or less into rate field of order. Start: 07-03-2021 10 mL, IntraVE Nous, PRN, Starting on Fri07/05/21 at 1732, Until Discontinued, Line Care For Line Patency: Peripheral IV = 5 mL; Midline or Central Line = 10 mL/lumen. If following IV push medication, administer flush at same rate as the IV push. Flush volume is determined by type of infusion therapy being given. For non-viscous solutions use: Peripheral IV = 5 mL Midline or Central Line = 10 mL/lumen For viscous solutions (i.e. blood components, parenteral nutrition, contrast media, or after obtaining blood sample) use: Peripheral IV = 10 mL Midline or Central Line = 20 mL/lumen Start: 06-29-2021 End: 07-02-2021 IntraVENous, at 100 mL/hr, C ONTINUOUS, Starting on Fri06/29/21 at 1400 Start: 06-28-2021 take 1 dose intraven ously twice daily 5-40 mL, IntraVENous, EVERY 12 HOURS SCHEDULED (2 times per day), First dose on Fri07/06/21 at 2245, Until Discontinued For Line Patency: Peripheral IV = 5 mL; Midline or Central Line = 10 mL/lumen. If following IV push medication, administer flush at same rate as the IV push. Flush volume is determined by type of infusion therapy being given. For non-viscous solutions use: Peripheral IV = 5 mL Midline or Central Line = 10 mL/lumen For viscous solutions (i.e. blood components, parenteral nutrition, contrast media, or after obtaining blood sample) use: Peripheral IV = 10 mL Midline or Central Line = 20 mL/lumen Start: 06-28-2021 take 5-40 mL intrave nously once as needed 5-40 mL, IntraVENous, PRN, Starting on [facility] 06/28/21 at 2107, Until Discontinued, Line Care, After every IV line use For Line Patency: Peripheral IV = 5 mL; Midline or Central Line = 10 mL/lumen. If following IV push medication, administer flush at same rate as the IV push. Flush volume is determined by type of infusion therapy being given. For non-viscous solutions use: Peripheral IV = 5 mL Midline or Central Line = 10 mL/lumen For viscous solutions (i.e. blood components, parenteral nutrition, contrast media, or after obtaining blood sample) use: Peripheral IV = 10 mL Midline or Central Line = 20 mL/lumen Start: 06-28-2021 End: 06-28-2021 0.9 % sodium chloride bolus Sodium polystyrene sulfonate (4 sources) Sodium Polystyre ne Sulfonate (KAYEXALATE PO) Take by mouth Given for potassium 5.8 on 08/15/21 0 Active sulfamethoxazole 800 mg / trimethoprim 160 mg oral tablet (3 sources) Dihydrofolate Reductase Inhibitor Antibacterial, Sulfonamide Antimicrobial Start: End: take 1 tablet by mouth twice daily sulfamethoxazole-tri methoprim 800-160 MG per tablet TAKE 1 TABLET BY MOUTH TWICE DAILY FOR 10 DAYS 0 09/14/2020 Active Tegaderm Contact Layer 3 X4 Pads (1 source) Start: Gauze Pads & Dressings (TEGADERM CONTACT LAYER) 3 X4 Pads To be used with Juanpablo Sensors every 14 days. 2 Each 4 01/19/2018 Active thioctic acid 300 mg oral tablet (15 sources) Start: End: 05-12-2 022 take 1 tablet by mouth twice daily Alpha-Lipoic Acid 300 MG TABS Take 300 mg by mouth 2 times daily 0 12/24/2017 06/28/2021 Discontinued (LIST CLEANUP) levothyroxine sodium 0.1 mg oral tablet (20 sources) l-Thyroxine Start: 022 take 1 tablet by mouth once daily levothyroxine (SYNTHROID) 100 MCG tablet Take 1 tablet by mouth Daily 30 tablet 3 07/11/2021 Active Start: 07-01-2021 End: 07-09-2021 take 100 ug by mouth once daily 100 mcg, Oral, DAILY, First dose on Fri07/09/21 at 0900, Until Discontinued Tube feeding (TF) interaction, obtain physician order to manage, recommend holding TF for 30 minutes before and after dose. Start: 03-20-2021 take 1 tablet by [place] th once daily levothyroxine 50 MCG tablet Take 1 tablet by mouth daily. 90 tablet 2 03/20/2021 Active Start: 10-16-2017 End: 07-10-2021 take 1 tablet by mouth every other day levothyroxine 112 MCG Tab tablet Indications: Acquired hypothyroidism Take 1 tablet by mouth every other day. 15 tablet 4 10/16/2017 Active Start: 10-16-2017 take 1 tablet by [place] th every other day levothyroxine 125 MCG Tab tablet Indications: Acquired hypothyroidism Take 1 tablet by mouth every other day. 15 tablet 4 10/16/2017 Active take 1 tablet by [place] th once daily levothyroxine (SYNTHROID) 112 MCG tablet Take 112 mcg by mouth Daily 0 Active levothyroxine 11 2 mcg cap daily. 0 Active topiramate 25 mg oral tablet (6 sources) Start: 12-24-2017 take 1 tablet by mouth twice daily topiramate 25 MG Tab tablet Take 1 tablet by mouth 2 times daily. 120 tablet 5 12/24/2017 Active VITAMIN B COMPLEX-C CAPS (2 sources) Start: 03-05-2018 End: 06-28-2021 take 1 capsule by mouth once daily VITAMIN B COMPLEX-C CAPS Take 1 capsule by mouth daily 0 03/05/2018 06/28/2021 Discontinued (LIST CLEANUP) Start: 03-05-2018 take 1 capsule by mo uth once daily VITAMIN B COMPLEX-C CAPS Take 1 capsule by mouth daily 0 03/05/2018 Active Completed/Discontinued Medications Medication Drug Class(es) Dates Sig (Normalized) Sig (Original) acetaminophen 325 mg oral tablet (4 sources) Start: 07-06-2021 take 650 mg by mouth every six hours, then take 4000 mg by mouth every twenty-four hours 650 mg, Oral, EVERY 6 HOURS, First dose on 07/06/21 at 2245, Until Discontinued Maximum dose of acetaminophen is 4000 mg from all sources in 24 hours. Start: 05-11-2021 End: 05-11-2021 acetaminophen (TYLENOL) tabl et 650 mg Start: 10-03-2020 End: 10-03-2020 acetaminophen (TYLENOL) tabl et 650 mg Start: 09-21-2020 End: 09-21-2020 acetaminophen (TYLENOL) tabl et 650 mg acetaminophen 325 mg / butalbital 50 mg / caffeine 40 mg oral tablet (1 source) Barbiturate, Central Nervous System Stimulant, Methylxanthine Start: 06-30-2021 End: 07-07-2021 take 1 tablet by mouth every four hours as needed for headache 1 tablet, Oral, EVERY 4 HOURS PRN, Starting on 06/30/21 at 0918, Until 07/07/21 at 1818, Headaches Maximum dose of acetaminophen is 4000 mg from all sources in 24 hours. acetaminophen 325 mg / HYDROcodone bitartrate 5 mg oral tablet (11 sources) Opioid Agonist Start: 07-14-2021 End: 07-24-2021 take 1 tablet by mouth every four hours as needed for pain 1 tablet, Oral, EVERY 4 HOURS PRN, Starting on 07/14/21 at 1705, Until Tu07/24/21 at 1357, Pain Moderate (4-6), Pain Severe (7-10) Maximum dose of acetaminophen is 4000 mg from all sources in 24 hours. Start: 07-14-2021 End: 07-14-2021 HYDROcodone-acetaminophen (N ORCO) 5-325 MG per tablet 1 tablet amitriptyline hydrochloride 25 mg oral tablet (7 sources) Tricyclic Antidepressant End: 12-20-2019 amitriptyline (ELAVIL) 25 MG tablet at bedtime. 0 12/20/2019 Discontinued (Error) aspirin 325 mg oral tablet (20 sources) Nonsteroidal Anti-inflammatory Drug Start: 06-30-2021 take 81 mg by mouth once daily 81 mg, Oral, DAILY, First dose on Fri06/30/21 at 0900, Until Discontinued Start: 06-28-2021 End: 06-28-2021 aspirin chewable tablet 81 m g Start: 04-07-2017 End: 06-29-2021 take 1 tablet by mouth once daily aspirin 325 MG tablet Take 325 mg by mouth daily 0 04/07/2017 Active Start: 04-07-2017 take 1 tablet by [place] once daily aspirin 325 MG EC tablet Take 1 (one) tablet (325 mg total) by mouth daily. 60 tablet 5 04/07/2017 Active End: 04-07-2017 take 1 tablet by mouth once daily aspirin 81 MG EC tablet Take 81 mg by mouth daily. 04/07/2017 Discontinued azithromycin (ZITHROMAX) 500 mg in D5W 250ml Vial Mate (1 source) Start: 07-13-2021 End: 07-14-2021 azithromycin (ZITHROMAX) 500 mg in D5W 250ml Vial Mate calcium chloride 0.0014 meq/ ml / potassium chloride 0.004 meq/ml / sodium chloride 0.103 meq/ml / sodium lactate 0.028 meq/ml injectable solution (2 sources) Start: 07-25-2021 End: 07-25-2021 500 mL, IntraVENous, at 500 mL/hr, Administer over 1 Hours, ONCE, On Fri07/25/21 at 0445, For 1 dose 100 ml calcium gluconate 20 mg/ml injection (2 sources) Start: 08-04-2021 End: 08-04-2021 2,000 mg, IntraVENous, at 10 0 mL/hr, Administer over 60 Minutes, ONCE, On Fri08/04/21 at 0800, For 1 dose Start: 07-29-2021 End: 07-29-2021 2,000 mg, IntraVENous, at 10 0 mL/hr, Administer over 60 Minutes, ONCE, On Fri07/29/21 at 0630, For 1 dose carvedilol 25 mg oral tablet (20 sources) alpha-Adrenergic Chemo, beta-Adrenergic Chemo Start: 06-29-2021 End: 06-29-2021 take 1 dose by mouth once 25 mg, Oral, ONCE, 1 dose, On Fri06/29/21 at 0200 Administer with food to minimize the risk of orthostatic hypotension Start: 06-29-2021 End: 07-28-2021 take 25 mg by mouth twice daily at mealtime 25 mg, Oral, 2 TIMES DAILY WITH MEALS, First dose on 07/15/21 at 0130, Until Discontinued Administer with food to minimize the risk of orthostatic hypotension carvedilol (CORE G) 25 MG tablet Take 12.5 mg by mouth 2 times daily (with meals) 0 Active cilostazol 100 mg oral tablet (1 source) Phosphodiesterase 3 Inhibitor End: 04-07-2017 take 1 tablet by mouth twice daily cilostazol (PLETAL) 100 MG tablet Take 100 mg by mouth 2 (two) times a day. 04/07/2017 Discontinued Ciprofloxacin (1 source) Quinolone Antimicrobial End: 01-05-2018 Ciprofloxacin (CIPRO PO) Take by mouth. 01/05/2018 Discontinued clindamycin 300 mg oral capsule (3 sources) Lincosamide Antibacterial End: 09-26-2020 take 1 capsule by mouth three times daily clindamycin 300 MG capsule TAKE 1 CAPSULE BY MOUTH THREE TIMES A DAY 0 09/26/2020 Discontinued dexamethasone 6 mg oral tablet (2 sources) Corticosteroid Start: 07-14-2021 End: 07-15-2021 6 mg, Oral, DAILY, 10 doses, First dose on 07/14/21 at 1700, Last dose on Fri07/23/21 at 0900 Start: 06-28-2021 End: 06-28-2021 10 mg, IntraVENous, EVERY 6 HOURS, First dose on Nohemy 06/28/21 at 1615, For 4 days Please give steroid 15 mins before antibiotics dextromethorphan hydrobromide 2 mg/ml / guaiFENesin 20 mg/ml oral suspension (1 source) Uncompetitive M-yunrxk-R-aspartate Receptor Antagonist, Sigma-1 Agonist Start: 07-14-2021 End: 08-07-2021 take 5 mL by mouth every four hours as needed for cough Dosing in mg is based on dextromethorphan component. 5 mL, Oral, EVERY 4 HOURS PRN, Starting on 07/14/21 at 1639, Until 08/07/21 at 0810, Cough diphenhydrAMINE hydrochloride 25 mg oral tablet (4 sources) Histamine-1 Receptor Antagonist Start: 07-16-2021 End: 07-24-2021 take 25 mg by mouth every six hours as needed 25 mg, Oral, EVERY 6 HOURS PRN, Starting on Fri07/16/21 at 1302, Until Fri07/24/21 at 1357, Itching, reaction to abx Start: 05-11-2021 End: 05-11-2021 diphenhydrAMINE (BENADRYL) t ablet 25 mg Start: 10-03-2020 End: 10-03-2020 diphenhydrAMINE (BENADRYL) t ablet 25 mg Start: 09-21-2020 End: 09-21-2020 diphenhydrAMINE (BENADRYL) t ablet 25 mg docusate sodium 50 mg / sennosides, prison 8.6 mg oral tablet (1 source) Start: 07-06-2021 take 1 tablet by mouth twice daily 1 tablet, Oral, 2 TIMES DAILY, First dose on Fri07/06/21 at 2245, Until Discontinued, Post-op doxycycline hyclate 100 mg oral tablet (5 sources) Tetracycline -class Drug Start: 07-09-2021 End: 07-09-2021 Start: 05-01-2021 End: 05-08-2021 take 1 capsule by mouth twice daily doxycycline hyclate (VIBRAMYCIN) 100 MG capsule Take 1 (one) capsule (100 mg total) by mouth 2 (two) times a day for 7 days . 14 capsule 0 05/01/2021 05/08/2021 Active Start: 12-06-2020 End: 12-13-2020 take 1 capsule by mouth twice daily doxycycline hyclate (VIBRAMYCIN) 100 MG capsule Take 1 (one) capsule (100 mg total) by mouth 2 (two) times a day for 7 days . 14 capsule 0 12/06/2020 12/13/2020 Start: 05-29-2018 End: 06-05-2018 take 1 tablet by mouth twice daily doxycycline hyclate (VIBRA-TABS) 100 MG tablet Take 1 (one) tablet (100 mg total) by mouth 2 (two) times a day for 7 days . 14 tablet 0 05/29/2018 06/05/2018 Active End: 01-05-2018 DOXYCYCLINE PO Take by mouth . 01/05/2018 Discontinued Drug or medicament (substance) (8 sources) Start: 07-25-2021 End: 07-26-2021 1-10 mg/hr (1-10 mL/hr), IntraVENous, CONTINUOUS, Starting on Fri07/25/21 at 1200, Until Nohemy 07/26/21 at 0942 Titrate Infusion? Yes Initial Infusion Dose: 2 mg/hr Goal of Therapy is: RASS of -1 to 0 Contact Provider if: New onset SBP less than 90 mmHg, Patient is receiving the maximum dose and is not achieving the goal of therapy If Titrate Infusion? is No : Disregard instructions below. If Titrate infusion? is Yes : Titrate in increments of 1 mg/hr no more frequently than every 30 minutes to goal of therapy. If patient fails sedation interruption, resume infusion at 50% of previous dose. Start: 07-24-2021 End: 08-02-2021 take 0.5-4 mL intravenously every hour 25-200 mcg/hr (0.5-4 mL/hr), IntraVENous, CONTINUOUS, Starting on 07/24/21 at 1130, Until Nohemy 08/02/21 at 1138 Titrate Infusion? Yes Initial Infusion Dose: 50 mcg/hr Goal of Therapy is: RASS of -1 to 1 Contact Provider if: Patient is receiving the maximum dose and is not achieving the goal of therapy If Titrate Infusion? is No : Disregard instructions below. If Titrate infusion? is Yes : Titrate in increments of 25 mcg/hr no more frequently than every 30 minutes to goal of therapy. If after titration dose change patient exhibits adverse hemodynamic response, next titration dose change may be adjusted by one-half of the previous dose change. If patient fails sedation interruption, resume infusion at 50% of previous dose. Start: 07-16-2021 End: 07-18-2021 2,000 mg, IntraVENous, EVERY 8 HOURS, First dose on 07/16/21 at 1330, Until Discontinued Antimicrobial Indications: Bone and Joint Infection Administer over 5 mins. Start: 07-09-2021 End: 08-20-2021 Start: 06-29-2021 End: 06-29-2021 1,250 mg (19 mg/kg), IntraVE Nous, at 166.7 mL/hr, Administer over 90 Minutes, ONCE, On Fri06/29/21 at 1000, For 1 dose 0.4 ml enoxaparin sodium 100 mg/ml prefilled syringe (2 sources) Low Molecular Weight Heparin Start: 07-14-2021 inject 40 mg by subcutaneous injection once daily 40 mg, SubCUTAneous, DAILY, First dose (after last modification) on Fri07/14/21 at 1745, Until Discontinued Indication of Use: Prophylaxis-DVT/PE Start: 06-29-2021 inject 40 mg by subc utaneous injection once daily 40 mg, SubCUTAneous, DAILY, First dose on Fri06/29/21 at 0900, Until Discontinued Indication of Use: Prophylaxis-DVT/PE famotidine (PEPCID) 20 mg in sodium chloride (PF) 10 mL injection (1 source) Start: 06-28-2021 End: 06-28-2021 famotidine (PEPCID) 20 mg in sodium chloride (PF) 10 mL injection 2 ml fentaNYL 0.05 mg/ml injection (4 sources) Opioid Agonist Start: 08-07-2021 End: 08-10-2021 take 50 ug by mouth every hour as needed for pain 50 mcg, IntraVENous, EVERY 1 HOUR PRN, Starting on Fri08/07/21 at 0545, Until Fri08/10/21 at 0758, Pain Mild (1-3), Pain Moderate (4-6), Pain Severe (7-10), Per CPOT scale If oral and IV narcotics ordered, use oral first and only use IV if oral is ineffective or cannot take oral. Do Not give oral and IV within 1 hour of each other unless specifically ordered. Start: 07-25-2021 End: 08-07-2021 take 25 ug by mouth every hour as needed for pain 25 mcg, IntraVENous, EVERY 1 HOUR PRN, Starting on Fri07/25/21 at 0821, Until Fri08/07/21 at 0546, Pain Mild (1-3), Pain Moderate (4-6), Pain Severe (7-10), Per CPOT scale If oral and IV narcotics ordered, use oral first and only use IV if oral is ineffective or cannot take oral. Do Not give oral and IV within 1 hour of each other unless specifically ordered. Start: 07-24-2021 End: 07-24-2021 take 1 dose by mouth once 50 mcg, IntraVENous, ONCE, 1 dose, On Fri07/24/21 at 1230 If oral and IV narcotics ordered, use oral first and only use IV if oral is ineffective or cannot take oral. Do Not give oral and IV within 1 hour of each other unless specifically ordered. Start: 07-01-2021 End: 07-01-2021 take 1 dose by mouth once 25 mcg, IntraVENous, ONCE, 1 dose, On Fri07/01/21 at 1915 If oral and IV narcotics ordered, use oral first and only use IV if oral is ineffective or cannot take oral. Do Not give oral and IV within 1 hour of each other unless specifically ordered. fluconazole 200 mg oral tabl et (4 sources) Azole Antifungal Start: 07-10-2021 End: 07-19-2021 Start: 07-02-2021 End: 07-16-2021 flumazenil 0.1 mg/ml injectable solution (1 source) Benzodiazepine Antagonist Start: 07-24-2021 End: 07-24-2021 1 dose, Starting on Fri07/24/21 at 1050, Until Fri07/24/21 at 2259 Jess Ventura: cabinet override Jess Ventura: cabinet override Freestyle Juanpablo [place] Essie (5 sources) Start: 04-21-2017 End: 01-07-2018 Continuous Blood Gluc Color Strainer (FREESTYLE JUANPABLO READER) Device Indications: Type 2 diabetes mellitus with diabetic polyneuropathy, without long-term current use of insulin Apply 1 Device topically As directed. Use to download subcutaneous glucose monitor data at least four times daily 1 Device 3 04/21/2017 01/07/2018 Discontinued Start: 04-21-2017 Continuous Blo od Gluc Color Strainer (FREESTYLE JUANPABLO READER) Device Indications: Type 2 diabetes mellitus with diabetic polyneuropathy, without long-term current use of insulin Apply 1 Device topically As directed. Use to download subcutaneous glucose monitor data at least four times daily 1 Device 3 04/21/2017 Active Freestyle Juanpablo Sensor Syste m Misc (5 sources) Start: 04-21-2017 End: 01-07-2018 Continuous Blood Gluc Sensor (FREESTYLE JUANPABLO SENSOR SYSTEM[place] [facility] [place]: Type 2 diabetes mellitus with diabetic polyneuropathy, without long-term current use of insulin Inject 1 Each under the skin every [address] one sensor subcutaneous every 10 day 3 Each 6 04/21/2017 01/07/2018 Discontinued Start: 04-21-2017 Continuous Blo od Gluc Sensor (FREESTYLE JUANPABLO SENSOR SYSTEM[place] [facility] [place]: Type 2 diabetes mellitus with diabetic polyneuropathy, without long-term current use of insulin Inject 1 Each under the skin every [address] one sensor subcutaneous every 10 day 3 Each 6 04/21/2017 Active gabapentin 100 mg oral capsu le (5 sources) Anti-epileptic Agent Start: 07-10-2021 End: 07-25-2021 Start: 07-04-2021 End: 07-25-2021 take 200 mg by mouth three times daily 200 mg, Oral, 3 TIMES DAILY, First dose on Fri07/19/21 at 0900, Until Discontinued glucagon (rdna) 1 mg injection (2 sources) Antihypoglycemic Agent Start: 07-14-2021 take 1 mL intravenously every hour 1 mg, IntraMUSCular, PRN, Starting on 07/14/21 at 1639, Until Discontinued, Low blood sugar, Blood glucose less than 70 mg/dL and patient NOT ALERT or NPO and does not have IV access. After administration, attempt intravenous access and start D5W at 100 mL/hr. Repeat blood glucose in 15 minutes x2 and notify provider. Start: 06-28-2021 take 1 mL intravenou sly every hour 1 mg, IntraMUSCular, PRN, Starting on Nohemy 06/28/21 at 1617, Until Discontinued, Low blood sugar, Blood glucose less than 70 mg/dL and patient NOT ALERT or NPO and does not have IV access. After administration, attempt intravenous access and start D5W at 100 mL/hr. Repeat blood glucose in 15 minutes x2 and notify provider. 1000 ml glucose 100 mg/ml injection (7 sources) Start: 07-25-2021 End: 07-25-2021 IntraVENous, at 250 mL/hr, O NCE, On Fri07/25/21 at 0715, For 1 dose Start: 07-14-2021 End: 07-26-2021 IntraVENous, at 50 mL/hr, CO NTINUOUS, Starting on Fri07/25/21 at 1830 Start: 06-28-2021 100 mL/hr, Int raVENous, PRN, Low blood sugar, Starting on Nohemy 06/28/21 at 1617 Start infusion following administration of dextrose 50% or glucagon. Start: 05-11-2021 End: 05-11-2021 dextrose 5% IV solution 250 mL Start: 10-03-2020 End: 10-03-2020 dextrose 5% IV solution 250 mL Start: 09-21-2020 End: 09-21-2020 dextrose 5% IV solution 250 mL hydrALAZINE hydrochloride 10 mg oral tablet (3 sources) Arteriolar Vasodilator Start: 07-23-2021 End: 07-23-2021 take 1 dose by mouth once 10 mg, Oral, ONCE, 1 dose, On Fri07/23/21 at 0645 Start: 06-29-2021 End: 06-30-2021 5 mg, IntraVENous, ONCE, 1 d ose, On Fri06/29/21 at 2245 Do not give if HR is above 100 Start: 06-29-2021 10 mg, IntraVE Nous, EVERY 4 HOURS PRN, Starting on Fri06/29/21 at 2219, Until Discontinued, High Blood Pressure, SBP > 160 Hold for HR >100 1 ml HYDROmorphone hydrochloride 1 mg/ml cartridge (2 sources) Opioid Agonist Start: 07-06-2021 End: 07-06-2021 1 dose, Starting on Fri07/06/21 at 2140, Until Fri07/06/21 at 2141 Ashwini Cleary: jayyt override Ashwini Cleary: cabinet override immune globulin (human) (GAMUNEX-C) infusion 15 g (3 sources) Start: 05-11-2021 End: 05-11-2021 immune globulin (human) (GAMUNEX-C) infusion 15 g Start: 10-03-2020 End: 10-03-2020 immune globulin (human) (WANDA UNEX-C) infusion 15 g Start: 09-21-2020 End: 09-21-2020 immune globulin (human) (WANDA UNEX-C) infusion 15 g insulin glargine 100 unt/ml injectable solution (14 sources) Insulin Analog Start: 08-10-2021 inject 10 [IU] by subcutaneous injection once daily 10 Units, SubCUTAneous, NIGHTLY, First dose (after last modification) on Fri08/10/21 at 2100, Until Discontinued Start: 08-08-2021 End: 08-10-2021 inject 5 [IU] by subcutaneous injection once daily 5 Units, SubCUTAneous, NIGHTLY, First dose on Fri08/08/21 at 2100, Until Discontinued Start: 08-04-2021 End: 08-06-2021 inject 20 [IU] by subcutaneous injection once daily 20 Units, SubCUTAneous, NIGHTLY, First dose (after last modification) on Fri08/04/21 at 2100, Until Discontinued Start: 08-03-2021 End: 08-04-2021 inject 8 [IU] by subcutaneous injection once daily 8 Units, SubCUTAneous, NIGHTLY, First dose on Fri08/03/21 at 2100, Until Discontinued Start: 06-30-2021 End: 08-03-2021 inject 16 [IU] by subcutaneous injection once daily 16 Units, SubCUTAneous, NIGHTLY, First dose on Fri07/21/21 at 2100, Until Discontinued Start: 06-29-2021 End: 06-29-2021 inject 10 [IU] by subcutaneous injection once daily 10 Units, SubCUTAneous, NIGHTLY, First dose (after last modification) on Fri06/29/21 at 0200, Until Discontinued insulin glargine (LANTUS) 100 UNIT/ML injection vial Inject 16 Units into the skin nightly 0 Active insulin lispro 100 unt/ml injectable solution (20 sources) Insulin Analog Start: 08-01-2021 End: 08-02-2021 0-18 Units, SubCUTAneous, 3 TIMES DAILY WITH MEALS, First dose on Fri08/01/21 at 1700, Until Discontinued High Dose Corrective Algorithm Glucose: Dose: 70-139 No Insulin 140-199 3 Units 200-249 6 Units 250-299 9 Units 300-349 12 Units 350- 400 15 Units Over 400 18 Units Start: 07-29-2021 End: 08-04-2021 0-12 Units, SubCUTAneous, EV RAFY 6 HOURS, First dose on 08/04/21 at 0915, Until Discontinued Medium Dose Corrective Algorithm Glucose: Dose: If <139 No Insulin 140-199 2 Units 200-249 4 Units 250-299 6 Units 300-349 8 Units 350-400 10 Units Above 400 12 Units Start: 07-28-2021 End: 07-29-2021 0-3 Units, SubCUTAneous, NIG HTLY, First dose on 07/28/21 at 2100, Until Discontinued If continuous tube feedings/TPN/NPO, give correction dose based on result, no reduction in dose. If eating or bolus tube feeding: Corrective Bedtime (50%) Low Dose Algorithm Glucose: Dose: 70-139 No Insulin 140-249 1 Unit 250-349 2 Units Over 350 3 Units Start: 07-28-2021 End: 07-29-2021 0-6 Units, SubCUTAneous, 3 T IMES DAILY WITH MEALS, First dose on 07/28/21 at 1700, Until Discontinued Corrective Low Dose Algorithm Glucose: Dose: 70-139 No Insulin 140-199 1 Unit 200-249 2 Units 250-299 3 Units 300-349 4 Units 350-399 5 Units Over 399 6 Units Start: 07-24-2021 End: 07-28-2021 0-12 Units, SubCUTAneous, EV RAFY 4 HOURS, First dose (after last modification) on Fri07/24/21 at 1600, Until Discontinued Medium Dose Corrective Algorithm Glucose: Dose: If <139 No Insulin 140-199 2 Units 200-249 4 Units 250-299 6 Units 300-349 8 Units 350-400 10 Units Above 400 12 Units Start: 07-14-2021 End: 07-24-2021 0-6 Units, SubCUTAneous, NIG HTLY, First dose on Fri07/22/21 at 2100, Until Discontinued If continuous tube feedings/TPN/NPO, give correction dose based on result, no reduction in dose. If eating or bolus tube feeding: Medium Dose Corrective Algorithm Glucose: Dose: If <139 No Insulin 140-199 &nb sp; 1 Unit 200-249 2 Units 250-299 &nbsp ; 3 Units 300-349 &nbsp ; 4 Units 350-400 &nbsp ; 5 Units Above 400 6 Units Start: 07-14-2021 End: 07-24-2021 0-12 Units, SubCUTAneous, 3 TIMES DAILY WITH MEALS, First dose on Lane 07/22/21 at 0845, Until Discontinued Medium Dose Corrective Algorithm Glucose: Dose: If <139 No Insulin 140-199 2 Units 200-249 4 Units 250-299 6 Units 300-349 8 Units 350-400 10 Units Above 400 12 Units Start: 06-28-2021 0-6 Units, SubCUTAneous, NIG HTLY, First dose on Nohemy 06/28/21 at 2100, Until Discontinued If continuous tube feedings/TPN/NPO, give correction dose based on result, no reduction in dose. If eating or bolus tube feeding: Medium Dose Corrective Algorithm Glucose: Dose: If <139 No Insulin 140-199 &nb sp; 1 Unit 200-249 2 Units 250-299 &nbsp ; 3 Units 300-349 &nbsp ; 4 Units 350-400 &nbsp ; 5 Units Above 400 6 Units Start: 06-28-2021 0-12 Units, SubCUTAneous, 3 TIMES DAILY WITH MEALS, First dose on Nohemy 06/28/21 at 1700, Until Discontinued Medium Dose Corrective Algorithm Glucose: Dose: If <139 &nb sp; No Insulin 140-199 2 Units 200-249 4 Units 250-299 6 Units 300-349 8 Units 350-400 10 Units Above 400 12 Units Start: 06-23-2020 End: 09-28-2020 Insulin Lispro, 1 Unit Dial, (HumaLOG KwikPen) 100 UNIT/ML Solution Pen-injector Sample given [id number], 3 mL 0 09/13/2020 09/28/2020 Discontinued (Therapy completed) Start: 07-21-2019 Insulin Lispro, 1 Unit Dial, 100 UNIT/ML Solution Pen-injector Indications: Type 1 diabetes mellitus with diabetic neuropathy Use less than 30 units daily with sliding scale. 15 mL 3 03/20/2021 Active Start: 01-19-2018 insulin lispro (HUMALOG KWIK PEN) 100 UNIT/ML Solution Pen-injector Use less than 30 units daily with sliding scale. 5 Prefilled Pen/Syringe 3 01/19/2018 Active insulin lispro ( HUMALOG KWIKPEN) 100 UNIT/ML pen Inject 5 Units into the skin 3 times daily (before meals) Sliding scale coverage 0 Active iopamidol (ISOVUE-370) 76 % injection 75 mL (1 source) Start: 06-28-2021 End: 06-28-2021 iopamidol (ISOVUE-370) 76 % injection 75 mL 1 ml ketorolac tromethamine 30 mg/ml cartridge (4 sources) Nonsteroidal Anti-inflammatory Drug, Cyclooxygenase Inhibitor Start: 06-28-2021 End: 06-30-2021 take 1 dose intravenously once daily as needed Ketorolac is contraindicated in patients with advanced renal impairment and in patients at risk of renal failure due to volume depletion. For 65 years of age and older OR weight less than 50 kg, use 15 mg IV every 6 hours; MAX dose: 60 mg/day. Dose greater than 30 mg must be administered via intramuscular route. Do not administer for more than 5 days. 15 mg, IntraVENous, EVERY 6 HOURS PRN, Starting on 06/29/21 at 2219, Until 06/30/21 at 0918, Pain Moderate (4-6), Pain Severe (7-10) Do not administer for more than 5 days. labetalol hydrochloride 5 mg/ml injectable solution (3 sources) beta-Adrenergic Chemo Start: 07-27-2021 End: 07-27-2021 10 mg, IntraVENous, ONCE, 1 dose, On Fri07/27/21 at 1930 Start: 07-27-2021 End: 07-27-2021 1 dose, Starting on 07/27 at 1906, Until Fri07/27/21 at 1907 AbnerHelen carrington A: cabinet override AbnerHelen carrington A: cabinet override Start: 06-28-2021 10 mg, IntraVE Nous, EVERY 4 HOURS PRN, Starting on Fri06/28/21 at 1615, Until Discontinued, High Blood Pressure, for sbp >160 Hold for HR <60, or SBP <120 lactobacillus rhamnosus gg 0 [id number] unt oral capsule (6 sources) Start: 07-11-2021 End: 08-10-2021 Start: 07-11-2021 End: 08-10-2021 take 1 capsule by mouth once daily at breakfast 1 capsule, Oral, DAILY WITH BREAKFAST, First dose on Fri07/16/21 at 0800, Until Discontinued Do not add to warm or hot foods or beverages. Caps may be opened & mixed in a cool beverage or sprinkled onto baby food or applesauce. Mix entire packet content into cool food or drink until dissolved. latanoprost 0.05 mg/ml ophthalmic solution (20 sources) Prostaglandin Analog Start: 07-19-2021 1 drop, B oth Eyes, NIGHTLY, First dose on Fri07/19/21 at 2100, Until Discontinued Start: 06-28-2021 1 drop, Both E yes, NIGHTLY, First dose on Fri06/28/21 at 2100, Until Discontinued Start: 03-05-2017 Start: 03-05-2017 take 1 drop(s) into the eye(s) once daily latanoprost (XALATAN) 0.005 % ophthalmic solution Place 1 drop into both eyes nightly 0 03/05/2017 Active Start: 03-05-2017 take 1 drop(s) into the eye(s) at bedtime latanoprost (XALATAN) 0.005 % ophthalmic solution Administer 1 drop to both eyes at bedtime. 6 03/05/2017 Active 150 ml levoFLOXacin 5 mg/ml injection (1 source) Quinolone Antimicrobial Start: 07-25-2021 End: 07-31-2021 750 mg, IntraVENous, EVERY 24 HOURS, 7 doses, First dose on Fri07/25/21 at 1130, Last dose on Fri07/31/21 at 1130 Antimicrobial Indications: Pneumonia (HAP) HAP duration of therapy: 7 days Suspected Organism(s): gram neg rods lisinopril 10 mg oral tablet (18 sources) Angiotensin Converting Enzyme Inhibitor Start: 07-03-2021 End: 07-10-2021 take 10 mg by mouth once daily 10 mg, Oral, DAILY, First dose (after last modification) on Fri07/03/21 at 0900, Until Discontinued Start: 06-29-2021 End: 06-30-2021 take 10 mg by mouth once daily 10 mg, Oral, DAILY, Fir st dose on Fri06/29/21 at 0900, Until Discontinued take 1 tablet by [place] th once daily lisinopril 5 MG Tab tablet take 5 mg by mouth daily. Active loperamide hydrochloride 0.133 mg/ml oral suspension (2 sources) Opioid Agonist Start: 08-04-2021 take 2 mg by mouth four times daily as needed 2 mg, Oral, 4 TIMES DAILY PRN, Starting on Fri08/04/21 at 0758, Until Discontinued, Diarrhea After each loose stool. Start: 07-03-2021 take 2 mg by mouth f our times daily as needed 2 mg, Oral, 4 TIMES DAILY PRN, Starting on Fri07/03/21 at 0329, Until Discontinued, Diarrhea After each loose stool. magnesium hydroxide 80 mg/ml oral suspension (2 sources) Start: 07-29-2021 End: 08-04-2021 30 mL, Per NG tube, DAILY ME N, Starting on Fri08/04/21 at 0800, Until Discontinued, Constipation 50 ml magnesium sulfate 40 mg/ml injection (10 sources) Start: 08-07-2021 End: 08-07-2021 2,000 mg, IntraVENous, at 25 mL/hr, Administer over 2 Hours, ONCE, On Fri08/07/21 at 1545, For 1 dose Recommended infusion rate not to exceed 1,000 mg (milligrams) per hour. Start: 07-25-2021 End: 07-25-2021 2,000 mg, IntraVENous, at 25 mL/hr, Administer over 2 Hours, ONCE, On Fri07/25/21 at 0800, For 1 dose Recommended infusion rate not to exceed 1,000 mg (milligrams) per hour. Start: 07-16-2021 End: 07-16-2021 2,000 mg, IntraVENous, at 25 mL/hr, Administer over 2 Hours, ONCE, On Fri07/16/21 at 0900, For 1 dose Recommended infusion rate not to exceed 1,000 mg (milligrams) per hour. Start: 07-13-2021 End: 07-14-2021 take 1000 mg intravenously every hour as needed 1,000 mg, IntraVENous, at 100 mL/hr, Administer over 1 Hours, PRN, Other, Per Magnesium IV Replacement Protocol, Starting on Fri07/14/21 at 1639 Mg Lab Replac ement Action 1.4-1.6 &n bsp; 1 gram IVPB x 2 doses &nbs p; & nbsp; &nbs p; (2 gram Total) 1.0-1.3 &nbs p; 1 gram IVPB x 4 doses &nbs p; & nbsp; &nbs p; (4 gram Total) <1.0 &nbsp ; CALL PHYSICIAN and &nb sp; &nb sp;1 gram IVPB x 4 doses (4 gram Total) Infuse at 1 gram/hr Repeat Mag level next AM Protocol not for use in Patients with CrCl<30ml/min Start: 07-10-2021 End: 07-10-2021 1,000 mg, IntraVENous, at 10 0 mL/hr, Administer over 1 Hours, ONCE, On Fri07/10/21 at 1130, For 1 dose Recommended infusion rate not to exceed 1,000 mg (milligrams) per hour. Start: 07-08-2021 End: 07-08-2021 1,000 mg, IntraVENous, at 10 0 mL/hr, Administer over 1 Hours, ONCE, On Fri07/08/21 at 0900, For 1 dose Recommended infusion rate not to exceed 1,000 mg (milligrams) per hour. Start: 07-05-2021 End: 07-05-2021 1,000 mg, IntraVENous, at 10 0 mL/hr, Administer over 1 Hours, ONCE, On Fri07/05/21 at 1115, For 1 dose Recommended infusion rate not to exceed 1,000 mg (milligrams) per hour. Start: 07-01-2021 End: 07-01-2021 2,000 mg, IntraVENous, at 25 mL/hr, Administer over 2 Hours, ONCE, On Fri07/01/21 at 1130, For 1 dose 2 grams total Start: 06-28-2021 End: 06-28-2021 2,000 mg, IntraVENous, at 25 mL/hr, Administer over 2 Hours, ONCE, On Nohemy 06/28/21 at 1445, For 1 dose Recommended infusion rate not to exceed 1,000 mg (milligrams) per hour. metFORMIN hydrochloride 1000 mg oral tablet (7 sources) Biguanide End: 12-20-2019 metFORMIN (GLUCOPHAGE) 1000 MG tablet 2 (two) times a day. 0 12/20/2019 Discontinued (Error) methylPREDNISolone 40 mg injection (2 sources) Corticosteroid Start: 07-27-2021 End: 07-30-2021 20 mg, IntraVENous, 2 times daily, First dose on Fri07/27/21 at 1200 For post extubation stridor Start: 07-26-2021 End: 07-26-2021 125 mg, IntraVENous, ONCE, O n Nohemy 07/26/21 at 1200, For 1 dose 2 ml metoclopramide 5 mg/ml prefilled syringe (5 sources) Dopamine-2 Receptor Antagonist Start: 08-04-2021 End: 08-09-2021 5 mg, IntraVENous, EVERY 6 HOURS, First dose on 08/04/21 at 1600, Until Discontinued take 5 mg by mouth twice daily m etoclopramide (REGLAN) 5 MG/5ML solution Take 5 mg by mouth 2 times daily 0 Active 5 ml metoprolol tartrate 1 mg/ml injection (17 sources) beta-Adrenergic Chemo Start: 07-27-2021 End: 07-27-2021 2.5 mg, IntraVENous, ONCE, 1 dose, On Fri07/27/21 at 0830 Start: 06-30-2021 End: 07-01-2021 5 mg, IntraVENous, EVERY 6 H OURS, First dose on 06/30/21 at 1015, Until Discontinued Hold for HR < 70, S bp< 130 End: 06-28-2021 take 1 tablet by mouth twice daily metoprolol (LOPRESSOR) 100 MG tablet Take 100 mg by mouth 2 times daily 0 06/28/2021 Discontinued (LIST CLEANUP) End: 12-20-2019 metoprolol tartrate (LOPRESS OR) 50 MG tablet 2 (two) times a day. 0 12/20/2019 Discontinued (Error) take 2 tablets by mo ut twice daily metoprolol 25 MG tab regular release Take 50 mg by mouth 2 times daily. Active 2 ml midazolam 1 mg/ml injection (3 sources) Benzodiazepine Start: 07-29-2021 End: 07-29-2021 2 mg, IntraVENous, ONCE, 1 dose, On 07/29/21 at 0600 Start: 07-24-2021 End: 07-24-2021 2 mg, IntraVENous, ONCE, 1 d ose, On 07/24/21 at 1215 Start: 07-24-2021 End: 07-24-2021 1 dose, Starting on Fri at 1150, Until Fri07/24/21 at 2359 DESTINY HOUSTON: cabinet override DESTINY HOUSTON: cabinet override 2 ml naloxone hydrochloride 1 mg/ml prefilled syringe (1 source) Opioid Antagonist Start: 06-28-2021 End: 06-28-2021 naloxone (NARCAN) injection 1 mg Start: 06-28-2021 End: 06-28-2021 naloxone (NARCAN) injection 1 mg 2 ml ondansetron 2 mg/ml injection (3 sources) Serotonin-3 Receptor Antagonist Start: 06-28-2021 End: 06-28-2021 ondansetron (ZOFRAN) injection 4 mg Start: 06-28-2021 End: 06-28-2021 ondansetron (ZOFRAN) 4 MG/2M L injection piperacillin-tazobactam (ZOS YN) 3,375 mg in dextrose 5 % 50 mL IVPB (mini-bag) (3 sources) Start: 07-14-2021 End: 07-14-2021 piperacillin-tazobactam (ZOS YN) 3,375 mg in dextrose 5 % 50 mL IVPB (mini-bag) Start: 07-14-2021 End: 07-14-2021 piperacillin-tazobactam (ZOS YN) 3,375 mg in dextrose 5 % 50 mL IVPB (mini-bag) Start: 07-13-2021 End: 07-14-2021 piperacillin-tazobactam (ZOS YN) 3,375 mg in dextrose 5 % 50 mL IVPB (mini-bag) piperacillin-tazobactam (ZOS YN) 3,375 mg in dextrose 5 % 50 mL IVPB extended infusion (mini-bag) (1 source) Start: 07-14-2021 End: 07-15-2021 3,375 mg, IntraVENous, EVERY 8 HOURS, 15 doses, First dose on Fri07/14/21 at 1700, Last dose on Fri07/19/21 at 0900 Antimicrobial Indications: Pneumonia (CAP) CAP duration of therapy: 5 days potassium bicarbonate 20 meq effervescent oral tablet (19 sources) Start: 07-20-2021 End: 07-24-2021 40 mEq, Oral, 3 TIMES DAILY, First dose on Fri07/20/21 at 1515, Until Discontinued Do not chew or crush. Dissolve flavored tablets completely in 3 to 4 ounces of cold water; unflavored tablets may be dissolved in 3 to 4 ounces of cold juice. Patient to sip slowly over a 5 to 10 minute period. May further dilute if GI adverse effects occur. Start: 07-19-2021 potassium bica rb-citric acid (EFFER-K) 20 MEQ TBEF effervescent tablet 2 tablets by Per NG tube route in the morning, at noon, and at bedtime 120 tablet 0 07/19/2021 Active Start: 07-19-2021 Start: 07-17-2021 40 mEq, Oral, 4 TIMES DAILY, 8 doses, First dose on Fri07/17/21 at 1700, Last dose on Fri07/19/21 at 1300 Do not chew or crush. Dissolve flavored tablets completely in 3 to 4 ounces of cold water; unflavored tablets may be dissolved in 3 to 4 ounces of cold juice. Patient to sip slowly over a 5 to 10 minute period. May further dilute if GI adverse effects occur. Start: 07-17-2021 40 mEq, Oral, EVERY 2 HOURS, 3 doses, First dose (after last modification) on Fri07/17/21 at 0845, Last dose on Fri07/17/21 at 1400 Do not chew or crush. Dissolve flavored tablets completely in 3 to 4 ounces of cold water; unflavored tablets may be dissolved in 3 to 4 ounces of cold juice. Patient to sip slowly over a 5 to 10 minute period. May further dilute if GI adverse effects occur. Start: 07-15-2021 40 mEq, Oral, ONCE, 1 dose, On Fri07/29/21 at 0630 Do not chew or crush. Dissolve flavored tablets completely in 3 to 4 ounces of cold water; unflavored tablets may be dissolved in 3 to 4 ounces of cold juice. Patient to sip slowly over a 5 to 10 minute period. May further dilute if GI adverse effects occur. Start: 07-13-2021 End: 07-14-2021 potassium bicarb-citric acid (EFFER-K) effervescent tablet 40 mEq Start: 07-10-2021 40 mEq, Oral, DAILY, First dose on Fri07/10/21 at 0900, Until Discontinued Do not chew or crush. Dissolve flavored tablets completely in 3 to 4 ounces of cold water; unflavored tablets may be dissolved in 3 to 4 ounces of cold juice. Patient to sip slowly over a 5 to 10 minute period. May further dilute if GI adverse effects occur. Start: 07-03-2021 End: 07-03-2021 40 mEq, Oral, ONCE, 1 dose, On Fri07/03/21 at 1900 Do not chew or crush. Dissolve flavored tablets completely in 3 to 4 ounces of cold water; unflavored tablets may be dissolved in 3 to 4 ounces of cold juice. Patient to sip slowly over a 5 to 10 minute period. May further dilute if GI adverse effects occur. Start: 07-03-2021 End: 07-06-2021 40 mEq, Oral, DAILY, First d ose on Fri07/03/21 at 0630, Until Discontinued Do not chew or crush. Dissolve flavored tablets completely in 3 to 4 ounces of cold water; unflavored tablets may be dissolved in 3 to 4 ounces of cold juice. Patient to sip slowly over a 5 to 10 minute period. May further dilute if GI adverse effects occur. Start: 07-02-2021 End: 07-02-2021 40 mEq, Oral, ONCE, 1 dose, On Fri07/02/21 at 0630 Do not chew or crush. Dissolve flavored tablets completely in 3 to 4 ounces of cold water; unflavored tablets may be dissolved in 3 to 4 ounces of cold juice. Patient to sip slowly over a 5 to 10 minute period. May further dilute if GI adverse effects occur. microencapsulated potassium chloride 20 meq extended release oral tablet (17 sources) Start: 08-05-2021 End: 08-05-2021 40 mEq, Oral, ONCE, 1 dose, On Fri08/05/21 at 0815 Do not crush, chew, or suck on tablet. Tablet may also be broken in half and each half swallowed separately. Start: 07-27-2021 End: 07-27-2021 20 mEq, IntraVENous, EVERY H OUR, 2 doses, First dose on Fri07/27/21 at 0900, Last dose on Fri07/27/21 at 1000, at 50 mL/hr Start: 07-25-2021 End: 07-26-2021 20 mEq, IntraVENous, EVERY H OUR, 2 doses, First dose on Fri07/26/21 at 0700, Last dose on Fri07/26/21 at 0800, at 50 mL/hr Start: 07-14-2021 End: 07-14-2021 potassium chloride 10 mEq/10 0 mL IVPB (Peripheral Line) Start: 07-08-2021 End: 07-08-2021 10 mEq, IntraVENous, EVERY H OUR, 4 doses, First dose on Fri07/08/21 at 0800, Last dose on Fri07/08/21 at 1100, at 100 mL/hr Start: 07-06-2021 End: 07-06-2021 10 mEq, IntraVENous, EVERY H OUR, 4 doses, First dose on Fri07/06/21 at 1000, Last dose on Fri07/06/21 at 1300, at 100 mL/hr Start: 07-05-2021 10 mEq, IntraV ENous, PRN, Starting on Fri07/05/21 at 1103, Until Discontinued, at 100 mL/hr, Potassium Replacement K Lab &n bsp; Replacement Action 2.7 to 3.0 10 mEq IVPB x 6 doses (60 mEq Total) Under 2.7 CALL PROVIDER and administer 10 mEq IVPB x 6 doses (60 mEq Total) Infuse at 10 mEq/hr. Repeat Potassium lab 1 hour after final administration. Protocol not for use in patients with CrCl less than 30 mL/min. Start: 07-01-2021 End: 07-03-2021 10 mEq, IntraVENous, EVERY H OUR, 4 doses, First dose on Fri07/03/21 at 0700, Last dose on Fri07/03/21 at 1000, at 100 mL/hr Start: 06-29-2021 End: 06-29-2021 40 mEq, IntraVENous, 2 times daily, 1 dose, First dose (after last modification) on Fri06/29/21 at 1400, at 100 mL/hr 2 ml prochlorperazine 5 mg/ml injection (1 source) Phenothiazine Start: 06-28-2021 End: 06-28-2021 prochlorperazine (COMPAZINE) injection 10 mg 100 ml propofol 10 mg/ml injection (1 source) General Anesthetic Start: 07-26-2021 End: 08-02-2021 5-50 mcg/kg/min 56.4 kg (1.692-16.92 mL/hr, rounded to 1.7-16.9 mL/hr), IntraVENous, CONTINUOUS, Starting on Nohemy 07/26/21 at 1430, Until Nohemy 08/02/21 at 1741 Titrate Infusion? Yes Initial Infusion Dose: 20 mcg/kg/min Goal of Therapy: RASS of -1 to 0 Contact Provider if: New onset HR less than 50 bpm, New onset SBP less than 90 mmHg, Patient is receiving maximum dose and is not achieving the goal of therapy, Triglycerides greater than 500 mg/dL If Titrate Infusion? is No : Disregard instructions below. If Titrate infusion? is Yes : Titrate in increments of 5 mcg/kg/min no more frequently than every 5 minutes to goal of therapy. If after titration rate change patient exhibits adverse hemodynamic response, next titration rate change may be adjusted by one-half of the previous rate change. If patient fails sedation interruption, resume propofol infusion at 50% of previous rate. Do not administer through the same I.V. catheter with blood or plasma. Tubing and any unused portions of propofol vials should be discarded after 12 hours. tiZANidine 2 mg oral tablet (20 sources) Central alpha-2 Adrenergic Agonist Start: 07-02-2021 take 2 mg by mouth every eight hours as needed 2 mg, Oral, EVERY 8 HOURS PRN, Starting on Fri07/02/21 at 1157, Until Discontinued, Muscle spasms tiZANidine (SHANIQUA FLEX) 4 MG tablet Take 4 mg by mouth as needed 0 Active valproic acid 50 mg/ml oral solution (6 sources) Mood Stabilizer, Anti-epileptic Agent Start: 07-03-2021 End: 08-09-2021 take 250 mg by mouth twice daily 250 mg, Oral, 2 times daily, First dose on Fri07/16/21 at 1300, Until Discontinued vitamin b12 1 mg oral tablet (4 sources) Vitamin B12 Start: 06-10-2018 End: 09-28-2020 take 2 tablets by mouth once daily cyanocobalamin 1000 MCG Tab Take 2 tablets by mouth daily. 60 tablet 11 06/10/2018 09/28/2020 Discontinued (Therapy completed) zonisamide 100 mg oral capsule (7 sources) Anti-epileptic Agent End: 12-20-2019 zonisamide (ZONEGRAN) 100 MG capsule 3 (three) times a day. 0 12/20/2019 Discontinued (Error) (20 sources) Start: 07-26-2021 End: 08-02-2021 take 20 mg intravenously twice daily 20 mg, IntraVENous, 2 TIMES DAILY, First dose (after last modification) on Fri07/26/21 at 2100, Until Discontinued IV Push over minimum of 2 minutes - Dilute with 10 mL NS Start: 07-25-2021 [Order 1 Start] Name: potass ium chloride (KLOR-CON M) extended release tablet 40 mEq Signed Summary: 40 mEq, Oral, PRN, Starting on Fri07/25/21 at 0628, Until Discontinued, Potassium Replacement May give alternative linked oral order (ordered as effervescent, packet, or liquid solution) if patient unable to tolerate tablet. K Lab Repla cement Action 3.1 to 3.5 40 mEq ORAL x 1 Under 3.1 Refer to IV replacement protocol Recheck K level in AM. Protocol not for use in patients with CrCl less than 30 mL/min. [Order 1 End] [Order 2 Start] Name: potassium bicarb-citric acid (EFFER-K) effervescent tablet 40 mEq Signed Summary: 40 mEq, Oral, PRN, Starting on Fri07/25/21 at 0628, Until Discontinued, Per Potassium Replacement Protocol Administer as alternative if patient unable to tolerate oral tablet. K Lab Repla cement Action 3.1 to 3.5 40 mEq ORAL x 1 Under 3.1 Refer to IV replacement protocol Recheck K level in AM. Protocol not for use in patients with CrCl less than 30 mL/min. Do not chew or crush. Dissolve flavored tablets completely in 3 to 4 ounces of cold water; unflavored tablets may be dissolved in 3 to 4 ounces of cold juice. Patient to sip slowly over a 5 to 10 minute period. May further dilute if GI adverse effects occur. [Order 2 End] [Order 3 Start] Name: potassium chloride 10 mEq/100 mL IVPB (Peripheral Line) Signed Summary: 10 mEq, IntraVENous, PRN, Starting on Fri07/25/21 at 0628, Until Discontinued, at 100 mL/hr, Potassium Replacement K Lab Replacement Action 2.7 to 3.0 10 mEq IVPB x 6 doses (60 mEq Total) Under 2.7 CALL PROVIDER and administer 10 mEq IVPB x 6 doses (60 mEq Total) Infuse at 10 mEq/hr. Repeat Potassium lab 1 hour after final administration. Protocol not for use in patients with CrCl less than 30 mL/min. [Order 3 End] Start: 07-24-2021 End: 08-02-2021 250 mg, IntraVENous, at 100 mL/hr, Administer over 60 Minutes, EVERY 12 HOURS, First dose (after last modification) on Fri07/24/21 at 2100 Start: 07-24-2021 End: 07-26-2021 t a k e 8 m g i n t r a v e n o u s l y e v e r y h o u r 8 mg/hr (10 mL/hr), IntraVENous, CONTINU OUS, Starting on Fri07/24/21 at 1515, Until Fri07/26/21 at 0945 Start: 07-24-2021 End: 07-24-2021 80 mg, IntraVENous, at 100 m L/hr, Administer over 30 Minutes, ONCE, On Fri07/24/21 at 1500, For 1 dose Start: 07-18-2021 End: 08-15-2021 2,000 mg, IntraVENous, EVERY 6 HOURS, 112 doses, First dose on Fri07/18/21 at 1400, Last dose on Fri08/15/21 at 1030 Antimicrobial Indications: Bloodstream Infection, Bone and Joint Infection Start: 07-17-2021 End: 07-18-2021 6.25 mg, IntraVENous, at 200 mL/hr, Administer over 15 Minutes, ONCE, On Tu07/17/21 at 2315, For 1 dose Start: 07-15-2021 End: 07-16-2021 1,000 mg, IntraVENous, EVERY 6 HOURS, 112 doses, First dose on 07/15/21 at 1745, Last dose on 08/12/21 at 1500 Antimicrobial Indications: Bloodstream Infection, Bone and Joint Infection Start: 07-14-2021 [Order 1 Start] Name: dextro se bolus 10% 125 mL Signed Summary: 125 mL, IntraVENous, at 937.5 mL/hr, Administer over 8 Minutes, PRN, Other, Blood glucose 40 - 69 mg/dL and patient NOT ALERT or NPO, Starting on 07/14/21 at 1639 Start D5W at 100 mL/hour until ordering provider can be reached. Repeat blood glucose in 15 minutes. If blood glucose is 40 - 69 mg/dL, repeat treatment and recheck blood glucose in 15 minutes x 2. If using Glucostabilizer, dose as instructed per system. [Order 1 End] [Order 2 Start] Name: dextrose bolus 10% 250 mL Signed Summary: 250 mL, IntraVENous, at 937.5 mL/hr, Administer over 16 Minutes, PRN, Other, Blood glucose LESS than 40 mg/dL and patient NOT ALERT or NPO, Starting on 07/14/21 at 1639 Start D5W at 100 mL/hour until ordering provider can be reached. Repeat blood glucose in 15 minutes. If blood glucose is LESS than 40 mg/dL, repeat treatment and recheck blood glucose in 15 minutes x 2. If using Glucostabilizer, dose as instructed per system. [Order 2 End] Start: 07-14-2021 [Order 1 Start] Name: acetam inophen (TYLENOL) tablet 650 mg Signed Summary: 650 mg, Oral, EVERY 6 HOURS PRN, Starting on 07/14/21 at 1639, Until Discontinued, Pain Mild (1-3), Fever, For temp greater than 100.4 F (38 C) Maximum dose of acetaminophen is 4000 mg from all sources in 24 hours. [Order 1 End] [Order 2 Start] Name: acetaminophen (TYLENOL) suppository 650 mg Signed Summary: 650 mg, Rectal, EVERY 6 HOURS PRN, Starting on 07/14/21 at 1639, Until Discontinued, Pain Mild (1-3), Fever, For temp greater than 100.4 F (38 C) Administer if oral route cannot be used. [Order 2 End] Start: 07-14-2021 [Order 1 Start] Name: ondans etron (ZOFRAN-ODT) disintegrating tablet 4 mg Signed Summary: 4 mg, Oral, EVERY 8 HOURS PRN, Starting on 07/14/21 at 1639, Until Discontinued, Nausea, Vomiting [Order 1 End] [Order 2 Start] Name: ondansetron (ZOFRAN) injection 4 mg Signed Summary: 4 mg, IntraVENous, EVERY 6 HOURS PRN, Starting on 07/14/21 at 1639, Until Discontinued, Nausea, Vomiting Administer if oral route cannot be used. [Order 2 End] Start: 07-06-2021 [Order 1 Start] Name: oxyCOD ONE (ROXICODONE) immediate release tablet 5 mg Signed Summary: 5 mg, Oral, EVERY 4 HOURS PRN, Starting on Fri07/06/21 at 2217, Until Discontinued, Pain Moderate (4-6) [Order 1 End] [Order 2 Start] Name: oxyCODONE (ROXICODONE) immediate release tablet 10 mg Signed Summary: 10 mg, Oral, EVERY 4 HOURS PRN, Starting on Fri07/06/21 at 2217, Until Discontinued, Pain Severe (7-10) [Order 2 End] Start: 07-02-2021 End: 07-03-2021 500 mg, IntraVENous, at 100 mL/hr, Administer over 60 Minutes, ONCE, On Fri07/02/21 at 2345, For 1 dose Start: 07-01-2021 End: 07-02-2021 250 mg, IntraVENous, at 100 mL/hr, Administer over 60 Minutes, EVERY 8 HOURS, First dose on Fri07/01/21 at 2000, For 3 doses Start: 07-01-2021 End: 07-01-2021 500 mg, IntraVENous, at 100 mL/hr, Administer over 60 Minutes, ONCE, On Fri07/01/21 at 1130, For 1 dose Start: 06-30-2021 End: 07-02-2021 t a k e 8 m g i n t r a v e n o u s l y e v e r y h o u r 8 mg/hr (10 mL/hr), IntraVENous, CONTINU OUS, Starting on 06/30/21 at 1315, Until 07/02/21 at 1411 Start: 06-30-2021 End: 06-30-2021 80 mg, IntraVENous, at 100 m L/hr, Administer over 30 Minutes, ONCE, On 06/30/21 at 1315, For 1 dose Start: 06-30-2021 End: 06-30-2021 40 mg, IntraVENous, DAILY, F irst dose on 06/30/21 at 0915 Reconstitute with 10 mL 0.9 % sodium chloride and administer over at least 2 minutes. Start: 06-29-2021 2,000 mg, IntraVENous, EVERY 4 HOURS, First dose on Fri06/29/21 at 1600, Until Discontinued Antimicrobial Indications: Bloodstream Infection Start: 06-28-2021 [Order 1 Start] Name: ondans etron (ZOFRAN-ODT) disintegrating tablet 4 mg Signed Summary: 4 mg, Oral, EVERY 8 HOURS PRN, Starting on Nohemy 06/28/21 at 2107, Until Discontinued, Nausea, Vomiting [Order 1 End] [Order 2 Start] Name: ondansetron (ZOFRAN) injection 4 mg Signed Summary: 4 mg, IntraVENous, EVERY 6 HOURS PRN, Starting on Nohemy 06/28/21 at 2107, Until Discontinued, Nausea, Vomiting Administer if oral route cannot be used. [Order 2 End] Start: 06-28-2021 [Order 1 Start] Name: dextro se bolus 10% 125 mL Signed Summary: 125 mL, IntraVENous, at 937.5 mL/hr, Administer over 8 Minutes, PRN, Other, Blood glucose 40 - 69 mg/dL and patient NOT ALERT or NPO, Starting on Nohemy 06/28/21 at 1616 If patient does not respond within 5 minutes, repeat dose x 1. Start D5W at 100 mL/hour until ordering provider can be reached. Repeat blood glucose in 15 minutes. If blood glucose is 40 - 69 mg/dL, repeat treatment and recheck blood glucose in 15 minutes x 2. If using Glucostabilizer, dose as instructed per system. [Order 1 End] [Order 2 Start] Name: dextrose bolus 10% 250 mL Signed Summary: 250 mL, IntraVENous, at 937.5 mL/hr, Administer over 16 Minutes, PRN, Other, Blood glucose LESS than 40 mg/dL and patient NOT ALERT or NPO, Starting on Nohemy 06/28/21 at 1616 If patient does not respond within 5 minutes, repeat dose x 1. Start D5W at 100 mL/hour until ordering provider can be reached. Repeat blood glucose in 15 minutes. If blood glucose is LESS than 40 mg/dL, repeat treatment and recheck blood glucose in 15 minutes x 2. If using Glucostabilizer, dose as instructed per system. [Order 2 End] Start: 06-28-2021 End: 06-28-2021 t a k e 1 0 0 m g i n t r a v e n o u s l y e v e r y t w e l v e h o u r s 2,000 mg, IntraVENous, EVERY 12 HOURS, F irst dose (after last modification) on Nohemy 06/28/21 at 1615, Until Discontinued Antimicrobial Indications: Central Nervous System Infection Administer as slow IV Push over 5 mins Reconstitute 2 g vials with 19.2 mL of designated diluent to produce a 100mg/mL solution Start: 06-28-2021 End: 06-28-2021 500 mg, IntraVENous, at 1,00 0 mL/hr, Administer over 60 Minutes, ONCE, On Nohemy 06/28/21 at 1445, For 1 dose Use 0.22 micron in-line filter. (1 source) Start: 06-28-2021 16 g (4 tablet ), Oral, PRN, Starting on Nohemy 06/28/21 at 1616, Until Discontinued, Low blood sugar If blood glucose is LESS than 70 mg/dL and patient is alert and tolerating oral. Give 4 tablets (16g) Repeat blood glucose in 15 minutes. If blood glucose is less than 70 mg/dL, repeat treatment and recheck blood glucose in 15 minutes x 2. If blood glucose remains LESS than 70 mg/dL, notify provider. (1 source) End: 07-10-2021 (3 sources) Start: 07-07-2021 End: 07-07-2021 1,000 mL (15.2 mL/kg), Intra VENous, at 495.9 mL/hr, Administer over 121 Minutes, ONCE, On Fri07/07/21 at 0600, For 1 dose Start: 07-06-2021 End: 07-06-2021 1,000 mL (15.2 mL/kg), Intra VENous, at 983.6 mL/hr, Administer over 61 Minutes, ONCE, On Fri07/06/21 at 0800, For 1 dose Start: 06-28-2021 End: 06-28-2021 1,000 mL (15.2 mL/kg), Intra VENous, at 1,000 mL/hr, Administer over 1 Hours, ONCE, On Fri06/28/21 at 1300, For 1 dose (3 sources) Start: 07-26-2021 End: 07-26-2021 take 1 dose intravenously once 12 mL, IntraVENous, IMG ONCE PRN, 1 dose, Starting on Fri07/26/21 at 1744, Until Fri07/26/21 at 1745, Other Start: 07-05-2021 End: 07-05-2021 take 1 dose intravenously once 10 mL, IntraVENous, IMG ONCE PRN, 1 dose, Starting on Fri07/05/21 at 1732, Until Fri07/05/21 at 1732, Other Start: 07-04-2021 End: 07-04-2021 take 1 dose intravenously once 12 mL, IntraVENous, IMG ONCE PRN, 1 dose, Starting on Fri07/04/21 at 1932, Until Fri07/04/21 at 1936, Other (1 source) Start: 07-03-2021 End: 07-03-2021 take 1 dose intravenously once 25 millicurie, IntraVENous, IMG ONCE PRN, 1 dose, Starting on Fri07/03/21 at 1250, Until Fri07/03/21 at 0930, Other, Nuclear Medicine (4 sources) Start: 07-25-2021 End: 07-25-2021 take 1 dose intravenously once 100 mL, IntraVENous, IMG ONCE PRN, 1 dose, Starting on Fri07/25/21 at 1658, Until Fri07/25/21 at 1707, Other Start: 07-24-2021 End: 07-24-2021 take 1 dose intravenously once 75 mL, IntraVENous, IMG ONCE PRN, 1 dose, Starting on Fri07/24/21 at 1109, Until Discontinued, Other Start: 06-29-2021 End: 06-29-2021 take 1 dose intravenously once 75 mL, IntraVENous, IMG ONCE PRN, 1 dose, Starting on Fri06/29/21 at 1914, Until Fri06/29/21 at 1950, Other Start: 06-28-2021 End: 06-28-2021 take 1 dose intravenously once 90 mL, IntraVENous, IMG ONCE PRN, 1 dose, Starting on Fri06/28/21 at 1215, Until Fri06/28/21 at 1226, Other (1 source) Start: 07-24-2021 End: 07-26-2021 1-100 mcg/min (0.9375-93.75 mL/hr, rounded to 0.9-93.8 mL/hr), IntraVENous, CONTINUOUS, Starting on Fri07/24/21 at 1130, Until Fri07/26/21 at 0959 Titrate Infusion? Yes Initial Infusion Dose: 5 mcg/min Goal of Therapy is: MAP greater than 65 mmHg Contact Provider if: Patient is receiving the maximum dose and is not achieving the goal of therapy Infuse via central line. If Titrate Infusion? is No : Disregard instructions below. If Titrate infusion? is Yes : If rate LESS than 10 mcg/min: Titrate by 2 mcg/min no faster than every 5 minutes to goal. If rate GREATER than or equal to 10 mcg/min: Titrate by 5 mcg/min no faster than every 5 minutes to goal. When approaching therapeutic goal or weaning off, smaller titration increments of 1 mcg/min no faster than every 5 minutes may be used to maintain goal. (1 source) Start: 07-15-2021 End: 07-15-2021 take 1 dose intravenously once 175 mg, IntraVENous, ONCE, 1 dose, On Fri07/15/21 at 1830 Does this patient qualify for COVID-19 antibody therapy based on criteria for treatment? Yes Administer IVP using an optional extension set over 30 seconds. Flush with NS immediately following administration. Cl inically monitor patient during push and observe patient for at least 1 hour after administration is complete. Problems Active Problems Problem Classification Problem Date Documented Da te Episodic/Chronic Allergic reactions (8 sources) Allergy to drug; Translations: [Allergy status to other antibiotic agents status] Episodic Asthma (20 sources) Asthma; Translations: [Unspecified asthma, uncomplicated] Onset: 6 10-10-2017 Chronic Bacterial infection; unspecified site (5 sources) Bacteremia; Translations: [Bacteremia] Onset: 2 Episodic Moise (1 source) Partial thickness burn of skin of finger; Translations: [Burn of second degree of single right finger (nail) except thumb, initial encounter] Episodic Cataract (10 sources) Nuclear sclerotic cataract; Translations: [Age-related nuclear cataract, left eye] Onset: 9 12-16-2018 Chronic Chronic ulcer of skin (20 sources) Ulcer of big toe; Translations: [Non-pressure chronic ulcer of other part of left foot with unspecified severity] Onset: 6 Chronic Coma; stupor; and brain damage (1 source) Stupor; Translations: [Stupor] Episodic Coronary atherosclerosis and other heart disease (7 sources) Coronary atherosclerosis; Translations: [Atherosclerotic heart disease of [place] coronary artery without angina pectoris] Onset: 3 01-22-2018 Chronic Deficiency and other anemia (4 sources) Anemia due to blood loss; Translations: [Iron deficiency anemia secondary to blood loss (chronic)] Onset: 2 09-26-2021 Chronic Deficiency and other anemia (6 sources) Normocytic anemia; Translations: [Anemia, unspecified] Episodic Delirium, dementia, and amnestic and other cognitive disorders (4 sources) Delirium due to multiple etiological factors; Translations: [Delirium due to known physiological condition] Onset: 2 09-18-2021 Chronic Diabetes mellitus with complications (20 sources) Type 2 diabetes mellitus with ulcer; Translations: [Type 2 diabetes mellitus with foot ulcer] Onset: 7 09-13-2020 Chronic Diabetes mellitus without complication (18 sources) Type 2 diabetes mellitus without complication; Translations: [Diabetes mellitus] Onset: 8 10-10-2017 Chronic Diseases of white blood cells (10 sources) Leukocytosis; Translations: [Elevated white blood cell count, unspecified] Chronic Disorders of lipid metabolism (20 sources) Mixed hyperlipidemia; Translations: [Hypercholesterolemia] Onset: 3 10-16-2017 Chronic Encephalitis (except that caused by tuberculosis or sexually transmitted disease) (4 sources) Encephalitis; Translations: [Encephalitis and encephalomyelitis, unspecified] Episodic Esophageal disorders (7 sources) Gastroesophageal reflux disease; Translations: [Gastro-esophageal reflux disease without esophagitis] Onset: 3 01-22-2018 Chronic Essential hypertension (20 sources) Benign essential hypertension; Translations: [Hypertensive disorder] Onset: 6 10-10-2017 Chronic Gastrointestinal hemorrhage (8 sources) Upper gastrointestinal bleeding; Translations: [Gastrointestinal hemorrhage, unspecified] Episodic Glaucoma (20 sources) Glaucoma; Translations: [Unspecified glaucoma] Onset: 3 Chronic Headache; including migraine (15 sources) Headache; Translations: [Headache] Onset: 8 01-22-2018 Episodic Infective arthritis and osteomyelitis (except that caused by tuberculosis or sexually transmitted disease) (20 sources) Osteomyelitis; Translations: [Osteomyelitis, unspecified] Onset: 0 Chronic Joint disorders and dislocations; trauma-related (5 sources) Derangement of right knee; Translations: [Unspecified internal derangement of right knee] Onset: 1 09-26-2020 Chronic Nausea and vomiting (9 sources) Nausea and vomiting; Translations: [Nausea with vomiting, unspecified] Episodic Neoplasms of unspecified nature or uncertain behavior (13 sources) Monoclonal gammopathy of uncertain significance; Translations: [Monoclonal gammopathy] Onset: 8 10-10-2017 Chronic Nutritional deficiencies (7 sources) Vitamin D deficiency; Translations: [Vitamin D deficiency, unspecified] Onset: 9 03-19-2018 Chronic Open wounds of extremities (2 sources) Avulsion injury of fingernail; Translations: [Laceration of right thumb] Episodic Osteoarthritis (20 sources) Osteoarthritis of joint of bilateral hands; Translations: [Primary osteoarthritis, right hand] Onset: 8 01-22-2018 Chronic Other aftercare (20 sources) Patient encounter status; Translations: [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 of non-steroidal anti-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 (NSAID)] Onset: 8 01-22-2018 Episodic Other aftercare (1 source) Long-term current use of antibiotic; Translations: [MCFP (current) use of antibiotics] Episodic Other SOAP MAKER infection and poliomyelitis (9 sources) 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; 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] Episodic Other connective tissue disease (2 sources) Pain in hallux; Translations: [Pain in left toe(s)] Episodic Other connective tissue disease (4 sources) History of cervical spine fusion; Translations: [Arthrodesis status] Onset: 3 Episodic Other gastrointestinal disorders (7 sources) Irritable bowel syndrome; Translations: [Irritable bowel syndrome without diarrhea] Onset: 3 01-22-2018 Chronic Other injuries and conditions due to external causes (1 source) Local infection of wound; Translations: [Other injury of unspecified body region, initial encounter] Episodic Other lower respiratory disease (1 source) Shortness of breath; Translations: [Shortness of breath] Onset: 2 Episodic Other nervous system disorders (20 sources) Chronic inflammatory demyelinating polyradiculoneuropathy ; Translations: [Chronic inflammatory demyelinating polyneuritis] Onset: 9 Chronic Other nervous system disorders (7 sources) Neuropathy of upper limb; Translations: [Unspecified mononeuropathy of unspecified upper limb] Onset: 8 02-16-2018 Chronic Other nervous system disorders (9 sources) Disorder of brain; Translations: [Encephalopathy, unspecified] Chronic Other nervous system disorders (9 sources) Metabolic encephalopathy; Translations: [Metabolic encephalopathy] Onset: 2 Chronic Other nervous system disorders (2 sources) Chronic inflammatory demyelinating polyneuritis; Translations: [Chronic inflammatory demyelinating polyneuritis] Onset: 9 Chronic Other nervous system disorders (4 sources) Toxic metabolic encephalopathy; Translations: [Toxic metabolic encephalopathy] 09-22-2021 Episodic Other nutritional; endocrine; and metabolic disorders (7 sources) POEMS syndrome; Translations: [Other disorders of plasma-protein metabolism, not elsewhere classified] Onset: 9 03-19-2018 Chronic Other nutritional; endocrine; and metabolic disorders (7 sources) Hypomagnesemia; Translations: [Hypomagnesemia] Onset: 2 Chronic Other nutritional; endocrine; and metabolic disorders (8 sources) Unintentional weight loss; Translations: [Abnormal weight loss] Episodic Other nutritional; endocrine; and metabolic disorders (6 sources) Feeding problem; Translations: [Feeding difficulties] Episodic Other screening for suspected conditions (not mental disorders or infectious disease) (9 sources) Elevated C-reactive protein; Translations: [Elevated C-reactive protein (CRP)] Episodic Other upper respiratory disease (5 sources) Chronic rhinitis; Translations: [Chronic rhinitis] Onset: 1 09-26-2020 Chronic Other upper respiratory disease (4 sources) Finding of respiratory device; Translations: [Encounter for attention to tracheostomy] Onset: 2 09-22-2021 Chronic Other upper respiratory disease (4 sources) Tracheostomy present; Translations: [Tracheostomy status] Onset: 2 09-22-2021 Chronic Other upper respiratory disease (4 sources) Nasal discharge; Translations: [Other specified disorders of nose and nasal sinuses] 08-28-2021 Episodic Other upper respiratory infections (4 sources) Acute pansinusitis; Translations: [Acute pansinusitis, unspecified] 08-28-2021 Episodic Residual codes; unclassified (6 sources) Tube feeding diet; Translations: [Other specified health status] Episodic Respiratory failure; insufficiency; arrest (adult) (10 sources) Acute hypoxemic respiratory failure; Translations: [Acute respiratory failure with hypoxia] Onset: 2 Episodic Skin and subcutaneous tissue infections (1 source) Cellulitis of finger of left hand; Translations: [Cellulitis of left finger] Onset: 9 07-16-2018 Spondylosis; intervertebral disc disorders; other back problems (20 sources) Degeneration of cervical intervertebral disc; Translations: [Other cervical disc degeneration, unspecified cervical region] Onset: 9 03-19-2018 Chronic Spondylosis; intervertebral disc disorders; other back problems (14 sources) Neck pain; Translations: [Cervicalgia] Onset: 8 01-22-2018 Episodic Thyroid disorders (20 sources) Hypothyroidism; Translations: [Hypothyroidism, unspecified] Onset: 2 10-10-2017 Chronic Unclassified (13 sources) Sleep apnea; Translations: [Sleep apnea, unspecified] 10-10-2017 Chronic Unclassified (2 sources) Post Op Visit; Translations: [Post Op Visit] Onset: 1 Unclassified (2 sources) Intraocular Pressure Check; Translations: [Intraocular Pressure Check] Onset: 1 Past or Other Problems Problem Classification Problem Date Documented Da te Episodic/Chronic Abdominal hernia (7 sources) Diaphragmatic hernia; Translations: [Diaphragmatic hernia without obstruction or gangrene] Onset: 06-24-2012 01-22-2018 Episodic Administrative/social admission (4 sources) Discharge status; Translations: [Encounter for administrative examinations, unspecified] Onset: 09-16-2021 09-16-2021 Episodic Cardiac dysrhythmias (8 sources) Palpitations; Translations: [Palpitations] Onset: 06-21-2013 01-22-2018 Episodic Complications of surgical procedures or medical care (4 sources) Ventilator associated pneumonia; Translations: [Ventilator associated pneumonia] Onset: 09-22-2021 09-22-2021 Episodic Deficiency and other anemia (7 sources) Anemia; Translations: [Anemia, unspecified] Onset: 01-22-2018 01-22-2018 Episodic Fluid and electrolyte disorders (10 sources) Hypokalemia; Translations: [Hypokalemia] Onset: 06-29-2021 Episodic Fracture of lower limb (20 sources) Closed fracture of first metatarsal bone ; Translations: [Displaced fracture of first metatarsal bone, left foot, subsequent encounter for fracture with routine healing] Onset: 04-17-2015 Episodic Malaise and fatigue (7 sources) Fatigue; Translations: [Other fatigue] Onset: 01-22-2018 01-22-2018 Episodic Nonspecific chest pain (17 sources) Chest pain; Translations: [Other chest pain] Onset: 10-09-2017 10-10-2017 Episodic Other bone disease and musculoskeletal deformities (7 sources) Disorder of skeletal system; Translations: [Disorder of bone, unspecified] Onset: 01-22-2018 01-22-2018 Episodic Other bone disease and musculoskeletal deformities (7 sources) X-ray evidence of poor mineralization; Translations: [Other specified disorders of bone density and structure, unspecified site] Onset: 03-19-2018 03-19-2018 Episodic Other circulatory disease (7 sources) H/O: cardiovascular disease; Translations: [Personal history of other diseases of the circulatory system] Onset: 01-22-2018 01-22-2018 Episodic Other connective tissue disease (7 sources) Pain of bilateral hands; Translations: [Pain in right hand] Onset: 01-22-2018 01-22-2018 Episodic Other connective tissue disease (7 sources) Biceps tendinitis; Translations: [Bicipital tendinitis, right shoulder] Onset: 01-22-2018 01-22-2018 Episodic Other connective tissue disease (7 sources) Bilateral rotator cuff tendinitis; Translations: [Other shoulder lesions, right shoulder] Onset: 01-22-2018 01-22-2018 Episodic Other connective tissue disease (4 sources) Arthrodesis status; Translations: [Arthrodesis status] Onset: 04-02-2022 Episodic Other injuries and conditions due to external causes (7 sources) Injury of left knee; Translations: [Unspecified injury of left lower leg, initial encounter] Onset: 01-22-2018 Resolved: 03-19-2018 03-19-2018 Episodic Other injuries and conditions due to external causes (7 sources) Injury of right knee; Translations: [Unspecified injury of right lower leg, initial encounter] Onset: 01-22-2018 Resolved: 03-19-2018 03-19-2018 Episodic Other liver diseases (7 sources) Alkaline phosphatase raised; Translations: [Abnormal levels of other serum enzymes] Onset: 01-22-2018 01-22-2018 Episodic Other nervous system disorders (4 sources) Cerebrospinal fluid leak; Translations: [Other cranial cerebrospinal fluid leak] Onset: 08-22-2021 09-11-2021 Episodic Other nervous system disorders (4 sources) Cerebrospinal fluid rhinorrhea; Translations: [CSF rhinorrhea] Onset: 09-11-2021 09-11-2021 Episodic Other non-traumatic joint disorders (1 source) Pain in right knee; Translations: [Pain in joint, lower leg] Onset: 01-22-2018 01-22-2018 Episodic Other non-traumatic joint disorders (7 sources) Shoulder pain; Translations: [Pain in right shoulder] Onset: 01-22-2018 01-22-2018 Episodic Other non-traumatic joint disorders (7 sources) Bilateral wrist pain; Translations: [Pain in right wrist] Onset: 01-22-2018 01-22-2018 Episodic Other non-traumatic joint disorders (7 sources) Pain in right hip joint; Translations: [Pain in right hip] Onset: 01-22-2018 01-22-2018 Episodic Other non-traumatic joint disorders (6 sources) Knee pain; Translations: [Pain in right knee] Onset: 01-22-2018 01-22-2018 Episodic Pneumonia (except that caused by tuberculosis or sexually transmitted disease) (2 sources) Infective pneumonia; Translations: [Pneumonia, unspecified organism] Onset: 04-01-2023 Episodic Residual codes; unclassified (7 sources) Postmenopausal state; Translations: [Asymptomatic menopausal state] Onset: 03-19-2018 03-19-2018 Episodic Residual codes; unclassified (9 sources) Altered mental status; Translations: [Altered mental status, unspecified] Onset: 06-28-2021 Episodic Septicemia (except in labor) (20 sources) Sepsis due to Staphylococcus aureus; Translations: [Sepsis due to Methicillin susceptible Staphylococcus aureus] Onset: 06-29-2021 Episodic Skin and subcutaneous tissue infections (15 sources) Cellulitis of right lower limb; Translations: [Cutaneous abscess of left hand] Onset: 07-16-2018 Episodic Thyroid disorders (18 sources) Disorder of thyroid gland; Translations: [Disorder of thyroid, unspecified] Onset: 03-27-2015 Episodic Viral infection (8 sources) Disease caused by 2019-nCoV; Translations: [COVID-19] Onset: 07-14-2021 Episodic Results Test Name Value Interpretation Reference Range Facility [facility] Medicine Office/Clini c Noteon 11-25-2023 [facility] Office/Clinic Note Normal [facility] Comment on above: Result Comment: Elec tronically Signed By: Jami Payne.br\Date and Time Signed: 11/25/23 12:17 EDT Pre-Visit Planningon 024 Pre-Visit Planning Normal [facility] Office/Clini c Noteon 10-24-2023 [facility] Office/Clinic Note Normal [facility] Comment on above: Result Comment: Elec tronically Signed By: Jami Payne.br\Date and Time Signed: 10/24/23 14:29 EDT Pre-Visit Planningon 024 Pre-Visit Planning Normal [facility] Pre-Visit Planningon 024 Pre-Visit Planning Normal [facility] Pre-Visit Planning Normal [facility] Pre-Visit Planning Normal [facility] Physician Orderon 05-27-2023 Physician Order [id number]#1 .00TIFF Normal [facility] Respiratory Panel by PCRon 0 05-27-2023 Adenovirus DNA CAL+non-probe Ql (Nph) Not detected Normal [facility] Comment on above: Order Comment: omega Ramires charanjit Maced[place] had talked to [place] earlier in the day and they want the swab placed into the media to run the specimen [id number] 05/27/2023 17:26:25 EDT Result Comment: Test ing was performed using nucleic acid amplification including Influenza A, Influenza A H1, Influenza A H3, Influenza B, RSV A, RSV B, Adenovirus, Human Metapneumovirus, Parainfluenza 1,2,3, and 4, Rhinovirus, Bordetella parapertussis/bronchiseptica, Bordetella holmesii, and Bordetella pertussis. Performed By: #### 1 [id number] ####[facility] [address] [place], [place] [address] B. parapertussis DNA CAL+probe Ql (Upper resp) Not detected Normal Not Detected [facility] Comment on above: Order Comment: omega Ramires Kamicat Erica had talked to [place] earlier in the day and they want the swab placed into the media to run the specimen [id number] 05/27/2023 17:26:25 EDT Performed By: #### 1 [id number] ####[facility] [address] [place] [address] B. pertussis DNA CAL+probe Ql (Upper resp) Not detected Normal Not Detected [facility] Comment on above: Order Comment: omega Ramires Kamicat Erica had talked to [place] earlier in the day and they want the swab placed into the media to run the specimen [id number] 05/27/2023 17:26:25 EDT Performed By: #### 1 [id number] ####[facility] [address] [place] [address] FLUAV H1 RNA CAL+non-probe Ql (Nph) Not detected Normal [facility] Comment on above: Order Comment: per charanjit [place]onaldson had talked to [place] earlier in the day and they want the swab placed into the media to run the specimen [id number] 05/27/2023 17:26:25 EDT Performed By: #### 1 [id number] ####[place] [address] [place] [address] FLUAV H3 RNA CAL+non-probe Ql (Nph) Not detected Normal [facility] Comment on above: Order Comment: per charanjit [place] had talked to [place] earlier in the day and they want the swab placed into the media to run the specimen [id number] 05/27/2023 17:26:25 EDT Performed By: #### 1 [id number] ####[facility] [address] [place] [address], [place] [address] FLUAV RNA CAL+non-probe Ql (Nph) Not detected Normal [facility] Comment on above: Order Comment: per charanjit [place] had talked to [place] earlier in the day and they want the swab placed into the media to run the specimen [id number] 05/27/2023 17:26:25 EDT Performed By: #### 1 [id number] ####[facility] [address] [place] [address] FLUBV RNA CAL+non-probe Ql (Nph) Not detected Normal [facility] Comment on above: Order Comment: per charanjit [place] had talked to [place] earlier in the day and they want the swab placed into the media to run the specimen [id number] 05/27/2023 17:26:25 EDT Performed By: #### 1 [id number] ####[facility] [address] [place] [address] Human Metapneumovirus Not detected Normal [facility] Comment on above: Order Comment: per charanjit [place] had talked to [place] earlier in the day and they want the swab placed into the media to run the specimen [id number] 05/27/2023 17:26:25 EDT Result Comment: This test result should be correlated with clinical presentations and medical history by a healthcare provider to determine its clinical significance. Performed By: #### 1 [id number] ####[facility] [address] [place] [address] Parainfluenza virus 1 RNA CAL+non-probe Ql (Nph) Not detected Normal [facility] Comment on above: Order Comment: charanjit Zaidi had talked to [place] earlier in the day and they want the swab placed into the media to run the specimen [facility] 05/27/2023 17:26:25 EDT Performed By: #### 1 [id number] ####[address] [address] Parainfluenza virus 2 RNA CAL+non-probe Ql (Nph) Not detected Normal [facility] Comment on above: Order Comment: charanjit Zaidi had talked to [place] earlier in the day and they want the swab placed into the media to run the specimen [facility] 05/27/2023 17:26:25 EDT Performed By: #### 1 [id number] ####[facility] [address] [place] [address] Parainfluenza virus 3 RNA CAL+non-probe Ql (Nph) Not detected Normal [facility] Comment on above: Order Comment: per charanjit [place] had talked to [place] earlier in the day and they want the swab placed into the media to run the specimen [id number] 05/27/2023 17:26:25 EDT Performed By: #### 1 [id number] ####[facility] [address] [place] [address] Parainfluenza virus 4 RNA CAL+non-probe Ql (Nph) Not detected Normal [facility] Comment on above: Order Comment: charanjit Zaidi had talked to [place] earlier in the day and they want the swab placed into the media to run the specimen [id number] 05/27/2023 17:26:25 EDT Performed By: #### 1 [id number] ####[facility] [address] [place] [address] Resp Panel Intrl QC Pass Normal [facility] Comment on above: Order Comment: charanjit Zaidi had talked to [place] earlier in the day and they want the swab placed into the media to run the specimen [id number] 05/27/2023 17:26:25 EDT Performed By: #### 1 [id number] ####[facility] [address] [place] [address] Rhinovirus+Enterovirus RNA CAL+non-probe Ql (Nph) Not detected Normal [facility] Comment on above: Order Comment: charanjit Zaidi had talked to [place] earlier in the day and they want the swab placed into the media to run the specimen [id number] 05/27/2023 17:26:25 EDT Performed By: #### 1 [id number] ####[facility] [address] [place] [address] RSV RNA CAL+non-probe Ql (Nph) Detected Abnormal [facility] Comment on above: Order Comment: charanjit Zaidi had talked to [place] earlier in the day and they want the swab placed into the media to run the specimen [id number] 05/27/2023 17:26:25 EDT Performed By: #### 1 [id number] ####[facility] [address] [place] [address] Coding Queryon 04-17-2023 Coding Query Normal [facility] Coding Query Normal [facility] C Blood Charcoalon Blood Culture Charcoal Normal [facility] Comment on above: Performed By: #### 1 [id number] ####[facility] [address] [place] [address] Blood Culture Charcoal Normal [facility] Comment on above: Performed By: #### 1 [id number] ####[facility] [address] [place] [address] Discharge Instructionson Discharge Instructions [id number]#1 .00TIFF Normal [facility] Medication Listson Medication Lists [id number]#1 .00TIFF Normal [facility] Medication Lists [id number]#1 .00TIFF Normal [facility] Prescriptions/Work Noteson 0 04-08-2023 Prescriptions/Work Notes [id number]#1 .00TIFF Normal [facility] Transfer Documentson 024 Transfer Documents [id number]#1 .00TIFF Normal [facility] Capillary Glucose POCon 03-20 Glucose [Mass/Vol] 91 mg/dL Normal 55-99 [facility] Comment on above: Result Comment: Sandhya luo RN/ Performed By: #### 2 [id number] ####[facility] [address] [place] [address] Glucose [Mass/Vol] 94 mg/dL Normal 55-99 [facility] Comment on above: Result Comment: Sandhya luo RN/ Performed By: #### 2 [id number] ####[facility] [address] [place] [address] Discharge Note-Nursingon Discharge Note-Nursing Normal [facility] Inpatient Clinical Summaryon 04-07-2023 Inpatient Clinical Summary Normal [facility] Inpatient Patient Summaryon 04-07-2023 Inpatient Patient Summary Normal [facility] Interdisciplinary Note - Miguelito e Manageron 04-07-2023 Interdisciplinary Note - Hat Presser Normal [facility] Comment on above: Result Comment: Elec tronically Signed By: Judith GARVIN, Mai\blair\Date and Time Signed: 04/07/23 09:13 EST Monitor Recordon 04-07-2023 Monitor Record [id number]# 1.00TIFF Normal [facility] BMPon 04-06-2023 Anion gap [Moles/Vol] 11 mmol/L Normal 6-16 [facility] Comment on above: Performed By: #### 2 529568, [id number], 9627651 ####[facility] [address] [place] [address] BUN/Creat Ratio 12 No Units Normal 10-20 [facility] Comment on above: Performed By: #### 2 418492, 91944164, 5489750 ####[facility] [address] [place] [address] Calcium [Mass/Vol] 8.8 mg/dL Low 8.9-11.1 [facility] Comment on above: Performed By: #### 2 979302, 92400705, 9790652 ####[facility] [address] [place] [address] Chloride [Moles/Vol] 112 mmol/L High 101-111 [facility] Comment on above: Performed By: #### 2 198369, 50841599, 9606611 ####[facility] [address] [place] [address] CO2 [Moles/Vol] 22 mmol/L Normal 21-31 [facility] Comment on above: Performed By: #### 2 672900, 06778095, 2762056 ####[facility] [address] [place] [address] Creatinine [Mass/Vol] 1.3 mg/dL Normal 0.5-1.3 [facility] Comment on above: Performed By: #### 2 837188, 66918381, 6804316 ####[facility] [address] [place] [address] Glucose [Mass/Vol] 80 mg/dL Normal 55-199 [facility] Comment on above: Performed By: #### 2 431751, 36805593, 5502025 ####[facility] [address] [place] [address] Potassium [Moles/Vol] 4.6 mmol/L Normal 3.5-5.3 [facility] Comment on above: Performed By: #### 2 280336, 56603693, 8205752 ####[address] [address] Sodium [Moles/Vol] 140 mmol/L Normal 135-145 [facility] Comment on above: Performed By: #### 2 083544, 76099205, 9381821 ####[address] [address] Urea nitrogen [Mass/Vol] 15 mg/dL Normal 5-21 [facility] Comment on above: Performed By: #### 2 366865, 47429816, 3761049 ####[address] [address] CBC w/ Auto Diffon 4 Basophil Absolute 0.0 E9/L Normal 0.0-0.2 [facility] Comment on above: Performed By: #### 2 713049, 66892303, 4123112 ####[address] [address] Basophils/100 WBC (Bld) 0.3 % Normal 0.0-2.0 [facility] Comment on above: Performed By: #### 2 411557, 39573473, 8702230 ####[address] [address] Eos Absolute 1.2 E9/L High 0.0-0.5 [facility] Comment on above: Performed By: #### 2 024000, 12389430, 0872899 ####[address] [address] Eosinophils/100 WBC (Bld) 11.5 % High 0.0-8.0 [facility] Comment on above: Performed By: #### 2 638953, 39856848, 2128779 ####[address] [address] Erythrocyte distribution width (RBC) [Ratio] 13.7 % Normal 10.9-14.2 [facility] Comment on above: Performed By: #### 2 560292, 29034303, 4072008 ####[address] [address] Hematocrit (Bld) [Volume fraction] 30.0 % Low 34.0-46.0 [facility] Comment on above: Performed By: #### 2 771739, 69472349, 7938535 ####[address] [address] Hemoglobin (Bld) [Mass/Vol] 9.9 g/dL Low 12.0-16.0 [facility] Comment on above: Performed By: #### 2 928530, 97510184, 8881037 ####[place] [address] Lymph Absolute 2.5 E9/L Normal 1.0-4.0 [facility] Comment on above: Performed By: #### 2 485614, 18081062, 0246163 ####[address] [address] Lymphocytes/100 WBC (Bld) 23.7 % Normal 14.0-50.0 [facility] Comment on above: Performed By: #### 2 402127, 48906855, 6134405 ####[address] [address] MCH (RBC) [Entitic mass] 29.9 pg Normal 27.0-34.0 [facility] Comment on above: Performed By: #### 2 394568, 97178577, 5047571 ####[address] [address] MCHC (RBC) [Mass/Vol] 32.9 g/dL Normal 31.4-36.0 [facility] Comment on above: Performed By: #### 2 817423, 10879053, 8374146 ####[facility] [address] [place] [address] MCV (RBC) [Entitic vol] 91.1 fL Normal 80.0-100.0 [facility] Comment on above: Performed By: #### 2 287474, 17531368, 3345828 ####[facility] [address] [place], [place] [address] [place] Absolute 1.2 E9/L High 0.2-1.0 [facility] Comment on above: Performed By: #### 2 044523, 85664799, 3936624 ####[place] [address] Monocytes/100 WBC (Bld) 11.2 % Normal 4.0-14.0 [facility] Comment on above: Performed By: #### 2 326290, 68054303, 1679855 ####[facility] [address] [place], [place] [address] Neutro Absolute 5.7 E9/L Normal 2.0-7.5 [facility] Comment on above: Performed By: #### 2 310945, 28166015, 3222823 ####[facility] [address] [place], [place] [address] Neutro Auto 53.3 % Normal 36.0-75.0 [facility] Comment on above: Performed By: #### 2 677030, 34937982, 2824507 ####[address] [address] Platelet 429.0 E9/L Normal 150.0-500.0 [facility] Comment on above: Performed By: #### 2 169311, 58062755, 2618321 ####[address] [address] Platelet mean volume (Bld) [Entitic vol] 6.9 fL Normal 6.4-10.8 [facility] Comment on above: Performed By: #### 2 278739, 31936476, 7340812 ####[facility] [address] [place] [address] RBC 3.3 E12/L Low 4.3-5.9 [facility] Comment on above: Performed By: #### 2 051714, 65292767, 7375814 ####[facility] [address] [place] [address] WBC 10.6 E9/L Normal 4.0-11.0 [facility] Comment on above: Performed By: #### 2 009542, 22153754, 8534299 ####[facility] [address] [place] [address] Capillary Glucose POCon 03-20 Glucose [Mass/Vol] 113 mg/dL High 55-99 [facility] Comment on above: Result Comment: Sandhya JOHNSTON Performed By: #### 2 [id number] ####[facility] [address] [place] [address] Glucose [Mass/Vol] 130 mg/dL High 55-99 [facility] Comment on above: Result Comment: Sandhya JOHNSTON Performed By: #### 2 80450307 ####[facility] [address] [place] [address] Glucose [Mass/Vol] 155 mg/dL High 55-99 [facility] Comment on above: Result Comment: Sandhya JOHNSTON Performed By: #### 2 14385249 ####[facility] [address] [place] [address] Glucose [Mass/Vol] 136 mg/dL High 55-99 [facility] Comment on above: Result Comment: Sandhya JOHNSTON Performed By: #### 2 44708035 ####[facility] [address] [place] [address] Glucose [Mass/Vol] 75 mg/dL Normal 55-99 [facility] Comment on above: Result Comment: Sandhya luo RN/ Performed By: #### 2 98867118 ####[facility] [address] [place] [address] Interdisciplinary Note - Miguelito e Manageron 04-06-2023 Interdisciplinary Note - Hat Presser [facility] Comment on above: Result Comment: Elec tronically Signed By: Chong GARVIN, Preeti\.br\Date and Time Signed: 04/06/23 11:44 EST Monitor Recordon 04-06-2023 Monitor Record [id number]# 1.00TIFF Normal [facility] Monitor Record [id number]# 1.00TIFF Normal [facility] Monitor Record [id number]# 1.00TIFF Normal [facility] Monitor Record [id number]# 1.00TIFF Normal [facility] Monitor Record [id number]# 1.00TIFF Normal [facility] Progress Note-Physicianon Progress Note-Physician Normal [facility] Comment on above: Result Comment: Elec tronically Signed By: Wil Putnam DO.br\Date and Time Signed: 04/06/23 13:25 EST eGFRon 04-06-2023 eGFR 47 mL/min/1.73 m2 Low >=59 [facility] Comment on above: Order Comment: Order added by Discern Expert. Performed By: #### 2 765520, 66508072, 6347811 ####[facility] [address] [place] [address] BMPon 04-05-2023 Anion gap [Moles/Vol] 11 mmol/L Normal 6-16 [facility] Comment on above: Performed By: #### 2 880313, 79171753, 9976857 ####[facility] [address] [place] [address] BUN/Creat Ratio 10 No Units Normal 10-20 [facility] Comment on above: Performed By: #### 2 338492, 99552179, 0424845 ####[facility] [address] [place] [address] Calcium [Mass/Vol] 8.2 mg/dL Low 8.9-11.1 [facility] Comment on above: Performed By: #### 2 083840, 93574509, 7906033 ####[facility] [address] [place] [address] Chloride [Moles/Vol] 111 mmol/L Normal 101-111 [facility] Comment on above: Performed By: #### 2 422470, 64228122, 5210918 ####[facility] [address] [place] [address] CO2 [Moles/Vol] 22 mmol/L Normal 21-31 [facility] Comment on above: Performed By: #### 2 524641, 04821829, 8001572 ####[facility] [address] [place] [address] Creatinine [Mass/Vol] 1.2 mg/dL Normal 0.5-1.3 [facility] Comment on above: Performed By: #### 2 539054, 80408336, 8877478 ####[facility] [address] [place] [address] Glucose [Mass/Vol] 75 mg/dL Normal 55-199 [facility] Comment on above: Performed By: #### 2 119779, 88209663, 2988316 ####[facility] [address] [place] [address] Potassium [Moles/Vol] 4.2 mmol/L Normal 3.5-5.3 [facility] Comment on above: Performed By: #### 2 164144, 34212327, 2333261 ####[facility] [address] [place] [address] Sodium [Moles/Vol] 140 mmol/L Normal 135-145 [facility] Comment on above: Performed By: #### 2 582093, 57649809, 5590968 ####[facility] [address] [place] [address] Urea nitrogen [Mass/Vol] 12 mg/dL Normal 5-21 [facility] Comment on above: Performed By: #### 2 982886, 28218538, 8110342 ####[facility] [address] [place] [address] C Sputumon 04-05-2023 Bacteria identified Respiratory culture Nom (Sput) Normal [facility] Comment on above: Performed By: #### 2 871964 ####[facility] [address] [place] [address] CBC w/ Auto Diffon Basophil Absolute 0.0 E9/L Normal 0.0-0.2 [facility] Comment on above: Performed By: #### 2 492541, 42293553, 9997597 ####[facility] [address] [place] [address] Basophils/100 WBC (Bld) 0.3 % Normal 0.0-2.0 [facility] Comment on above: Performed By: #### 2 629046, 15714331, 5220587 ####[facility] [address] [place] [address] Eos Absolute 1.2 E9/L High 0.0-0.5 [facility] Comment on above: Performed By: #### 2 157598, 82371908, 2879660 ####[facility] [address] [place] [address] Eosinophils/100 WBC (Bld) 11.0 % High 0.0-8.0 [facility] Comment on above: Performed By: #### 2 134283, 31157765, 0822010 ####[facility] [address] [place] [address] Erythrocyte distribution width (RBC) [Ratio] 13.9 % Normal 10.9-14.2 [facility] Comment on above: Performed By: #### 2 623603, 25737706, 4448360 ####[address] [address] Hematocrit (Bld) [Volume fraction] 29.0 % Low 34.0-46.0 [facility] Comment on above: Performed By: #### 2 552066, 28100470, 2544718 ####[address] [address] Hemoglobin (Bld) [Mass/Vol] 9.5 g/dL Low 12.0-16.0 [facility] Comment on above: Performed By: #### 2 491070, 65749547, 5329902 ####[address] [address] Lymph Absolute 2.4 E9/L Normal 1.0-4.0 [facility] Comment on above: Performed By: #### 2 703809, 31420361, 0400722 ####[address] [address] Lymphocytes/100 WBC (Bld) 22.0 % Normal 14.0-50.0 [facility] Comment on above: Performed By: #### 2 334501, 20727725, 0762373 ####[address] [address] MCH (RBC) [Entitic mass] 29.8 pg Normal 27.0-34.0 [facility] Comment on above: Performed By: #### 2 030705, 62899053, 9813136 ####[address] [address] MCHC (RBC) [Mass/Vol] 32.6 g/dL Normal 31.4-36.0 [facility] Comment on above: Performed By: #### 2 259333, 80459714, 0720790 ####[address] [address] MCV (RBC) [Entitic vol] 91.3 fL Normal 80.0-100.0 [facility] Comment on above: Performed By: #### 2 262420, 48950550, 3186459 ####[facility] [address] [place] [address] [place] Absolute 1.2 E9/L High 0.2-1.0 [facility] Comment on above: Performed By: #### 2 207608, 75148440, 8218373 ####[address] [address] Monocytes/100 WBC (Bld) 11.6 % Normal 4.0-14.0 [facility] Comment on above: Performed By: #### 2 752748, 76927529, 8649758 ####[address] [address] Neutro Absolute 5.9 E9/L Normal 2.0-7.5 [facility] Comment on above: Performed By: #### 2 352047, 92460142, 3561947 ####[address] [address] Neutro Auto 55.1 % Normal 36.0-75.0 [facility] Comment on above: Performed By: #### 2 350885, 15924857, 6313106 ####[address] [address] Platelet 415.0 E9/L Normal 150.0-500.0 [facility] Comment on above: Performed By: #### 2 360273, 82564566, 8303736 ####[address] [address] Platelet mean volume (Bld) [Entitic vol] 6.7 fL Normal 6.4-10.8 [facility] Comment on above: Performed By: #### 2 979187, 07670292, 7727585 ####[address] [address] RBC 3.2 E12/L Low 4.3-5.9 [facility] Comment on above: Performed By: #### 2 568868, 56737965, 9095754 ####[facility] [address] [place] [address] WBC 10.7 E9/L Normal 4.0-11.0 [facility] Comment on above: Performed By: #### 2 994242, 41968772, 7901287 ####[facility] [address] [place] [address] Capillary Glucose POCon 03-20 Glucose [Mass/Vol] 89 mg/dL Normal 55-99 [facility] Comment on above: Result Comment: Sandhya JOHNSTON Performed By: #### 2 [id number] ####[facility] [address] [place] [address] Glucose [Mass/Vol] 109 mg/dL High 55-99 [facility] Comment on above: Result Comment: Sandhya JOHNSTON Performed By: #### 2 [id number] ####[facility] [address] [place] [address] Glucose [Mass/Vol] 131 mg/dL High 55-99 [facility] Comment on above: Result Comment: Sandhya JOHNSTON Performed By: #### 2 11023483 ####[facility] [address] [place] [address] Glucose [Mass/Vol] 340 mg/dL High 55-99 [facility] Comment on above: Result Comment: Sandhya JOHNSTON Performed By: #### 2 [id number] ####[facility] [address] [place] [address] Glucose [Mass/Vol] 108 mg/dL High 55-99 [facility] Comment on above: Result Comment: Sandhya JOHNSTON Performed By: #### 2 [id number] ####[facility] [address] [place] [address] ED Note-Physicianon 04-05-19 ED Note-Physician Normal [facility] Comment on above: Result Comment: Elec tronically Signed By: Jeff Clancy PA-C\.br\Date and Time Signed: 04/01/23 14:53 EST\.br\Electronically Co-Signed By: Garfield Rodriguez DO\.br\Date and Time Co-Signed: 04/05/23 07:36 EST Enteric Panel by PCRon 04-05 C. coli+jejuni+upsaliensis DNA CAL+non-probe Ql (Stl) Not detected Normal [facility] Comment on above: Result Comment: Test ing was performed utilizing reverse dampener (RT), polymerase chain reaction (PCR), and array hybridization to detect specific gastrointestinal microbial nucleic acid gene sequences associated with the following pathogenic bacteria and viruses:Campylobacter Group (composed of C. coli, C. jejuni, and C. jordyn), Salmonella species, Shigella species (including S. dysenteriae, S. boydii, S. sonnei and S. flexneri), Vibrio Group (composed of V. cholera and V. parahaemolyticus), Yersinia enterocolitica, Norovirus GI/GII, and Rotavirus A. In addition, EPdetects Shiga toxin 1 gene and Shiga toxin 2 gene virulence markers. Shiga toxin producing E. coli (STEC) typically harbor one or both genes that encode for Shiga toxins 1 and 2.Campylobacter group, Salmonella species, Shigella species, Vibrio group, Rotavirus A, Shiga Toxin 1, Shiga Toxin 2, Norovirus GI/GII, and Yersinia enterocolitica were tested by Verigene nulcleic acid test. Performed By: #### 1 [id number] ####[facility] [address] [place] [address] E. coli stx1+stx2 genes CAL+non-probe Ql (Stl) Negative Normal [facility] Comment on above: Performed By: #### 1 [id number] ####[facility] [address] [place] [address] Enteric Panel Intrl QC Pass Normal [facility] Comment on above: Result Comment: Test ing was performed utilizing reverse dampener (RT), polymerase chain reaction (PCR), and array hybridization to detect specific gastrointestinal microbial nucleic acid gene sequences associated with the following pathogenic bacteria and viruses:Campylobacter Group (composed of C. coli, C. jejuni, and C. jordyn), Salmonella species, Shigella species (including S. dysenteriae, S. boydii, S. sonnei and S. flexneri), Vibrio Group (composed of V. cholera and V. parahaemolyticus), Yersinia enterocolitica, Norovirus GI/GII, and Rotavirus A. In addition, EPdetects Shiga toxin 1 gene and Shiga toxin 2 gene virulence markers. Shiga toxin producing E. coli (STEC) typically harbor one or both genes that encode for Shiga toxins 1 and 2. Performed By: #### 1 [id number] ####[place] [address] Norovirus genogroup I+II RNA CAL+non-probe Ql (Stl) Not detected Normal [facility] Comment on above: Performed By: #### 1 [id number] ####[place] [address] Rotavirus A RNA CAL+non-probe Ql (Stl) Not detected Normal [facility] Comment on above: Performed By: #### 1 [id number] ####[place] [address] S. enterica+bongori DNA CAL+non-probe Ql (Stl) Not detected Normal [facility] Comment on above: Result Comment: This test result should be correlated with clinical presentations and medical history by a healthcare provider to determine its clinical significance. Performed By: #### 1 [id number] ####[place] [address] [place] [id number] Shigella species+EIEC invasion plasmid antigen H ipaH gene CAL+non-probe Ql (Stl) Not detected Normal [facility] Comment on above: Performed By: #### 1 [id number] ####[place] [address]957 V. cholerae+parahaemolytic us+vulnificus DNA CAL+non-probe Ql (Stl) Not detected Normal [facility] Comment on above: Performed By: #### 1 874267225 ####[facility] [address] [place] [address] Y. enterocolitica DNA CAL+non-probe Ql (Stl) Not detected Normal [facility] Comment on above: Performed By: #### 1 [id number] ####[facility] [address] [place] [address] Interdisciplinary Note - Sharee n 04-05-2023 Interdisciplinary Note - OT Normal [facility] Interdisciplinary Note - PTo n 04-05-2023 Interdisciplinary Note - PT Normal [facility] Monitor Recordon 04-05-2023 Monitor Record [id number]# 1.00TIFF Normal [facility] Monitor Record [id number]# 1.00TIFF Normal [facility] Progress Note-Physicianon Progress Note-Physician Normal [facility] Comment on above: Result Comment: Elec tronically Signed By: Wil Putnam DO\.br\Date and Time Signed: 04/05/23 13:18 EST Progress Note-Physician Normal [facility] Comment on above: Result Comment: Elec tronically Signed By: Yaritza Evans Jr., PA-C\.br\Date and Time Signed: 04/05/23 12:41 EST eGFRon 04-05-2023 eGFR 52 mL/min/1.73 m2 Low >=59 [facility] Comment on above: Order Comment: Order added by Discern Expert. Performed By: #### 2 103824, 95562633, 2992624 ####[facility] [address] [place] [address] BMPon 04-04-2023 Anion gap [Moles/Vol] 12 mmol/L Normal 6-16 [facility] Comment on above: Performed By: #### 2 835621, 87741921, 7252013 ####[facility] [address] [facility] [place] [address] BUN/Creat Ratio 9 No Units Low 10-20 [facility] Comment on above: Performed By: #### 2 431671, 50120315, 5079891 ####[facility] [address] [place] [address] Calcium [Mass/Vol] 8.4 mg/dL Low 8.9-11.1 [facility] Comment on above: Performed By: #### 2 263631, 75118683, 0090653 ####[facility] [address] [place] [address] Chloride [Moles/Vol] 112 mmol/L High 101-111 [facility] Comment on above: Performed By: #### 2 341055, 29379277, 9872678 ####[facility] [address] [place] [address] CO2 [Moles/Vol] 19 mmol/L Low 21-31 [facility] Comment on above: Performed By: #### 2 168356, 19235119, 8405613 ####[facility] Jtyfpcuy[address] [place] [address] Creatinine [Mass/Vol] 1.2 mg/dL Normal 0.5-1.3 [facility] Comment on above: Performed By: #### 2 124160, 41773956, 7124879 ####[facility] [address] [place] [address] Glucose [Mass/Vol] 145 mg/dL Normal 55-199 [facility] Comment on above: Performed By: #### 2 213753, 48573658, 4350995 ####[facility] [address] [place] [address] Potassium [Moles/Vol] 3.9 mmol/L Normal 3.5-5.3 [facility] Comment on above: Performed By: #### 2 306077, 95156666, 9721412 ####[facility] X[address] [place] [address] Sodium [Moles/Vol] 139 mmol/L Normal 135-145 [facility] Comment on above: Performed By: #### 2 189599, 20591529, 6870542 ####[facility] [address] [place] [address] Urea nitrogen [Mass/Vol] 11 mg/dL Normal 5-21 [facility] Comment on above: Performed By: #### 2 716929, 05062398, 9742716 ####[address] [address] CBC w/ Auto Diffon 4 Basophil Absolute 0.0 E9/L Normal 0.0-0.2 [facility] Comment on above: Performed By: #### 2 388203, 88893675, 3945453 ####[address] [address] Basophils/100 WBC (Bld) 0.3 % Normal 0.0-2.0 [facility] Comment on above: Performed By: #### 2 750369, 84646459, 5141302 ####[address] [address] Eos Absolute 0.8 E9/L High 0.0-0.5 [facility] Comment on above: Performed By: #### 2 429016, 66305922, 7320896 ####[address] [address] Eosinophils/100 WBC (Bld) 7.7 % Normal 0.0-8.0 [facility] Comment on above: Performed By: #### 2 368155, 65304822, 4239029 ####[address] [address] Erythrocyte distribution width (RBC) [Ratio] 14.1 % Normal 10.9-14.2 [facility] Comment on above: Performed By: #### 2 705688, 86681892, 2939816 ####[address] [address] Hematocrit (Bld) [Volume fraction] 30.0 % Low 34.0-46.0 [facility] Comment on above: Performed By: #### 2 997600, 18592374, 7264907 ####[address] [address] Hemoglobin (Bld) [Mass/Vol] 10.1 g/dL Low 12.0-16.0 [facility] Comment on above: Performed By: #### 2 224317, 71693626, 7883426 ####[address] [address] Lymph Absolute 1.8 E9/L Normal 1.0-4.0 [facility] Comment on above: Performed By: #### 2 483282, 33485557, 0739201 ####[address] [address] Lymphocytes/100 WBC (Bld) 16.3 % Normal 14.0-50.0 [facility] Comment on above: Performed By: #### 2 318582, 54759507, 5946676 ####[address] [address] MCH (RBC) [Entitic mass] 30.9 pg Normal 27.0-34.0 [facility] Comment on above: Performed By: #### 2 270278, 76271590, 6341286 ####[address] [address] MCHC (RBC) [Mass/Vol] 33.9 g/dL Normal 31.4-36.0 [facility] Comment on above: Performed By: #### 2 272310, 90839878, 5447204 ####[address] [address] MCV (RBC) [Entitic vol] 91.1 fL Normal 80.0-100.0 [facility] Comment on above: Performed By: #### 2 565767, 38213110, 8462558 ####[address] [place] [address] [place] Absolute 1.3 E9/L High 0.2-1.0 [facility] Comment on above: Performed By: #### 2 971758, 10378090, 5224585 ####[address] [address] Monocytes/100 WBC (Bld) 12.3 % Normal 4.0-14.0 [facility] Comment on above: Performed By: #### 2 030688, 45956187, 2521456 ####[address] [address] Neutro Absolute 6.8 E9/L Normal 2.0-7.5 [facility] Comment on above: Performed By: #### 2 963256, 70104781, 6821578 ####[address] [address] Neutro Auto 63.4 % Normal 36.0-75.0 [facility] Comment on above: Performed By: #### 2 893145, 26226357, 5530601 ####[address] [address] Platelet 387.0 E9/L Normal 150.0-500.0 [facility] Comment on above: Performed By: #### 2 610590, 26651494, 1646988 ####[address] [address] Platelet mean volume (Bld) [Entitic vol] 6.9 fL Normal 6.4-10.8 [facility] Comment on above: Performed By: #### 2 842684, 28133272, 9219792 ####[address] [address] RBC 3.3 E12/L Low 4.3-5.9 [facility] Comment on above: Performed By: #### 2 389720, 92030981, 7629049 ####[address] [address] WBC 10.7 E9/L Normal 4.0-11.0 [facility] Comment on above: Performed By: #### 2 594199, 46550679, 3250046 ####[facility] [address] [place] [address] Capillary Glucose POCon 03-20 Glucose [Mass/Vol] 111 mg/dL High 55-99 [facility] Comment on above: Result Comment: Sandhya luo RN/ Performed By: #### 2 91446546 ####[facility] [address] [place] [address] Glucose [Mass/Vol] 98 mg/dL Normal 55- [facility] Comment on above: Result Comment: Sandhya luo RN/ Performed By: #### 2 89383992 ####[facility] [address] [place] [address] Glucose [Mass/Vol] 135 mg/dL High - [facility] Comment on above: Result Comment: Sandhya luo RN/ Performed By: #### 2 40836301 ####[facility] [address] [place] [address] Glucose [Mass/Vol] 138 mg/dL High - [facility] Comment on above: Result Comment: Sandhya luo RN/ Performed By: #### 2 19682248 ####[facility] [address] [place] [address] Echo Transthoracic Completeo n 04-04-2023 Echo Transthoracic Complete Normal [facility] Interdisciplinary Note - Miguelito e Manageron 04-04-2023 Interdisciplinary Note - Hat Presser Normal [facility] Comment on above: Result Comment: Elec tronically Signed By: Chanda Adames\.br\Date and Time Signed: 04/04/23 10:38 EST MRSA Screenon 04-04-2023 MRSA DNA CAL+probe Ql (Unsp spec) Normal [facility] Comment on above: Performed By: #### 1 [id number] ####[facility] [address] [place] [address] Monitor Recordon 04-04-2023 Monitor Record [id number]# 1.00TIFF Normal [facility] Progress Note-Physicianon Progress Note-Physician Normal [facility] Comment on above: Result Comment: Elec tronically Signed By: John VIVEROS, Alberto Rahman\.br\Date and Time Signed: 04/04/23 15:59 EST Progress Note-Physician Normal [facility] Comment on above: Result Comment: Elec tronically Signed By: Val NICHOLS CNP L\.br\Date and Time Signed: 04/04/23 11:32 EST\.br\Electronically Co-Signed By: JALEEL VIVEROS, Michelle\.br\Date and Time Co-Signed: 04/04/23 11:39 EST eGFRon 04-04-2023 eGFR 52 mL/min/1.73 m2 Low >=59 [facility] Comment on above: Order Comment: Order added by Discern Expert. Performed By: #### 2 063523, 86808275, 4954636 ####[facility] [address] [place] [address] BMPon 04-03-2023 Anion gap [Moles/Vol] 12 mmol/L Normal 6-16 [facility] Comment on above: Performed By: #### 2 965406, 49104881, 631880245, 9098298 ####[facility] [address] [place] [address] BUN/Creat Ratio 12 No Units Normal 10-20 [facility] Comment on above: Performed By: #### 2 905546, 19936175, 347653269, 5538521 ####[facility] [address] [place] [address] Calcium [Mass/Vol] 8.2 mg/dL Low 8.9-11.1 [facility] Comment on above: Performed By: #### 2 841072, 15994485, 406589143, 5801611 ####[facility] [address] [place] [address] Chloride [Moles/Vol] 110 mmol/L Normal 101-111 [facility] Comment on above: Performed By: #### 2 104944, 26307920, 331260051, 6984534 ####[facility] [address] [place] [address] CO2 [Moles/Vol] 20 mmol/L Low 21-31 [facility] Comment on above: Performed By: #### 2 474977, 83261954, 159076779, 3706369 ####[facility] [address] [place] [address] Creatinine [Mass/Vol] 1.2 mg/dL Normal 0.5-1.3 [facility] Comment on above: Performed By: #### 2 615916, 25843480, 203815111, 0631052 ####[facility] [address] [place] [address] Glucose [Mass/Vol] 133 mg/dL Normal 55-199 [facility] Comment on above: Performed By: #### 2 892339, 73949559, 925599872, 7507107 ####[facility] [address] [place] [address] Potassium [Moles/Vol] 4.0 mmol/L Normal 3.5-5.3 [facility] Comment on above: Performed By: #### 2 128642, 45227471, 252363671, 6058674 ####[facility] [address] [place] [address] Sodium [Moles/Vol] 138 mmol/L Normal 135-145 [facility] Comment on above: Performed By: #### 2 271244, 02606768, 295628430, 4821505 ####[facility] [address] [place] [address] Urea nitrogen [Mass/Vol] 14 mg/dL Normal 5-21 [facility] Comment on above: Performed By: #### 2 718817, 79489049, 886703163, 8113675 ####[facility] [address] [place] [address] Capillary Glucose POCon 03-20 Glucose [Mass/Vol] 123 mg/dL High 55-99 [facility] Comment on above: Result Comment: Sandhya luo RN/ Performed By: #### 2 81377942 ####[facility] [address] [place] [address] Glucose [Mass/Vol] 147 mg/dL High 55-99 [facility] Comment on above: Result Comment: Sandhya luo RN/ Performed By: #### 2 88169294 ####[facility] [address] [place] [address] Glucose [Mass/Vol] 133 mg/dL High 55-99 [facility] Comment on above: Result Comment: Sandhya luo RN/ Performed By: #### 2 93450608 ####[facility] [address] [place] [address] Glucose [Mass/Vol] 108 mg/dL High 55-99 [facility] Comment on above: Result Comment: Sandhya luo RN/ Performed By: #### 2 21062355 ####[facility] [address] [place] [address] Consultation Noteon 04-03-19 Consultation Note Normal [facility] Comment on above: Result Comment: Elec tronically Signed By: Yaritza Evans Jr., PA-C\.br\Date and Time Signed: 04/03/23 14:40 EST Interdisciplinary Note - Miguelito e Manageron 04-03-2023 Interdisciplinary Note - Hat Presser [facility] Comment on above: Result Comment: Elec tronically Signed By: Chanda Adames\.br\Date and Time Signed: 04/03/23 10:25 EST Magnesiumon 04-03-2023 Magnesium [Mass/Vol] 2.0 mg/dL Normal 1.3-2.4 [facility] Comment on above: Performed By: #### 2 273854, 66485920, 940403645, 1503736 ####[facility] [address] [place] [address] Monitor Recordon 04-03-2023 Monitor Record [id number]# 1.00TIFF Normal [facility] Monitor Record [id number]# 1.00TIFF Normal [facility] Progress Note - Pharmacyon 0 04-03-2023 Progress Note - Pharmacy Normal [facility] Progress Note-Physicianon Progress Note-Physician Normal [facility] Comment on above: Result Comment: Elec tronically Signed By: Val NICHOLS CNP\.br\Date and Time Signed: 04/03/23 18:25 EST\.br\Electronically Co-Signed By: Michelle MARMOLEJO MD\.br\Date and Time Co-Signed: 04/03/23 18:45 EST Progress Note-Physician Normal [facility] Comment on above: Result Comment: Elec tronically Signed By: Marybel Sofia\.br\Date and Time Signed: 04/03/23 02:39 EST\.br\Electronically Co-Signed By: Michelle MARMOLEJO MD\.br\Date and Time Co-Signed: 04/03/23 07:36 EST Vitamin D 25 Hydroxyon 04-03 Vitamin D 25 Hydroxy 28.2 ng/mL Low 30.0-100.0 [facility] Comment on above: Performed By: #### 2 436396, 73295738, 122903889, 4599178 ####[facility] [address] [place] [address] XR Chest Single Viewon 04-03 XR Chest Single View Normal [facility] eGFRon 04-03-2023 eGFR 52 mL/min/1.73 m2 Low >=59 [facility] Comment on above: Order Comment: Order added by Discern Expert. Performed By: #### 2 790742, 91887643, 814404885, 6208946 ####[facility] [address] [place] [address] BMPon 04-02-2023 Anion gap [Moles/Vol] 14 mmol/L Normal 6-16 [facility] Comment on above: Performed By: #### 1 6750966, 3625659, 4230080, 9722373, 6018322, 6077506, 65749888, 186343835 ####[facility] [address] [place] [address] BUN/Creat Ratio 13 No Units Normal 10-20 [facility] Comment on above: Performed By: #### 1 0577419, 9227634, 5016493, 8919910, 2027088, 4785413, 99576364, 136003296 ####[facility] [address] [place] [address] Calcium [Mass/Vol] 8.5 mg/dL Low 8.9-11.1 [facility] Comment on above: Performed By: #### 1 7100640, 9671594, 8474385, 8766029, 3898740, 5742591, 66166983, 028439494 ####[facility] [address] [place] [address] Chloride [Moles/Vol] 104 mmol/L Normal 101-111 [facility] Comment on above: Performed By: #### 1 6247154, 0941314, 7579895, 1734805, 2570767, 3029487, 30094126, 836250083 ####[facility] [address] [place] [address] CO2 [Moles/Vol] 21 mmol/L Normal 21-31 [facility] Comment on above: Performed By: #### 1 4364391, 9496200, 5204528, 9859882, 5877244, 7783833, 47065924, 400305236 ####[facility] [address] [place] [address] Creatinine [Mass/Vol] 1.3 mg/dL Normal 0.5-1.3 [facility] Comment on above: Performed By: #### 1 2723250, 5706899, 6944657, 5898356, 6458498, 0780962, 20904283, 242649342 ####[facility] [address] [place] [address] Glucose [Mass/Vol] 129 mg/dL Normal 55-199 [facility] Comment on above: Performed By: #### 1 0728171, 5124651, 8773737, 4317538, 7183910, 8496596, 77518398, 079797118 ####[facility] [address] [place] [address] Potassium [Moles/Vol] 4.4 mmol/L Normal 3.5-5.3 [facility] Comment on above: Performed By: #### 1 7607807, 6091282, 5319842, 5410378, 8228084, 3799590, 54492283, 409547224 ####[address] [address] Sodium [Moles/Vol] 135 mmol/L Normal 135-145 [facility] Comment on above: Performed By: #### 1 6878509, 4237244, 6548315, 1201877, 6208521, 6817636, 13712982, 008128363 ####[facility] [address] [place] [address] Urea nitrogen [Mass/Vol] 17 mg/dL Normal 5-21 [facility] Comment on above: Performed By: #### 1 0604787, 2566084, 3533183, 7382252, 9901144, 5788685, 17128411, 121338368 ####[facility] [address] [place] [address] CBC w/ Auto Diffon 4 Basophil Absolute 0.0 E9/L Normal 0.0-0.2 [facility] Comment on above: Performed By: #### 1 5382668, 8226957, 3156851, 8460006, 0168058, 8100959, 58682428, 799179018 ####[facility] [address] [place] [address] Basophils/100 WBC (Bld) 0.1 % Normal 0.0-2.0 [facility] Comment on above: Performed By: #### 1 3838989, 5674169, 2568734, 6596730, 4110715, 7575440, 51091974, 408839644 ####[facility] [facility] [address] [place] [address] Eos Absolute 0.3 E9/L Normal 0.0-0.5 [facility] Comment on above: Performed By: #### 1 6979586, 5101334, 2827093, 7427741, 7136841, 4502573, 21948236, 048052894 ####[address] [address] Eosinophils/100 WBC (Bld) 2.9 % Normal 0.0-8.0 [facility] Comment on above: Performed By: #### 1 0836873, 9345795, 6710156, 6411221, 8712064, 3897652, 56542646, 571507620 ####[address] [address] Erythrocyte distribution width (RBC) [Ratio] 13.6 % Normal 10.9-14.2 [facility] Comment on above: Performed By: #### 1 4726412, 4235449, 3106736, 2902787, 9208995, 9397195, 47268141, 679484549 ####[address] [place] [address] Hematocrit (Bld) [Volume fraction] 32.0 % Low 34.0-46.0 [facility] Comment on above: Performed By: #### 1 1177086, 4614687, 3822671, 1525636, 8859178, 1630619, 09035086, 811255424 ####[address] [place] [address] Hemoglobin (Bld) [Mass/Vol] 10.4 g/dL Low 12.0-16.0 [facility] Comment on above: Performed By: #### 1 0062673, 5949547, 7497454, 2832808, 0312006, 1797963, 83748238, 610408526 ####[facility] [address] [place] [address] Lymph Absolute 1.1 E9/L Normal 1.0-4.0 [facility] Comment on above: Performed By: #### 1 7721043, 3906741, 8227563, 7936187, 0411981, 2402772, 91630397, 704953715 ####[facility] [address] [place] [address] Lymphocytes/100 WBC (Bld) 9.6 % Low 14.0-50.0 [facility] Comment on above: Performed By: #### 1 8195627, 8641999, 8687416, 2844430, 7901169, 6278726, 64954449, 281740926 ####[facility] [address] [place] [address] MCH (RBC) [Entitic mass] 29.9 pg Normal 27.0-34.0 [facility] Comment on above: Performed By: #### 1 1874551, 2796820, 0111557, 7070997, 2267062, 7282678, 43845194, 270163233 ####[facility] [address] [place] [address] MCHC (RBC) [Mass/Vol] 32.4 g/dL Normal 31.4-36.0 [facility] Comment on above: Performed By: #### 1 9278312, 3773431, 5676673, 9924927, 8167752, 1805960, 52950220, 675538753 ####[facility] [address] [place] [address] MCV (RBC) [Entitic vol] 92.2 fL Normal 80.0-100.0 [facility] Comment on above: Performed By: #### 1 5913782, 6214666, 0920668, 2200401, 5421617, 9792122, 07866909, 623999988 ####[facility] [address] [place] [address] [place] Absolute 1.4 E9/L High 0.2-1.0 [facility] Comment on above: Performed By: #### 1 8197484, 4065254, 7184956, 2774708, 5894903, 0951962, 30177564, 539832258 ####[facility] [address] [place] [address] Monocytes/100 WBC (Bld) 11.6 % Normal 4.0-14.0 [facility] Comment on above: Performed By: #### 1 1789718, 7855069, 1701105, 1850554, 0978456, 6973831, 58518938, 122756751 ####[address] [address] Neutro Absolute 8.9 E9/L High 2.0-7.5 [facility] Comment on above: Performed By: #### 1 9222181, 5397050, 6474417, 9806895, 8231188, 0193091, 17689825, 473465488 ####[address] [address] Neutro Auto 75.8 % High 36.0-75.0 [facility] Comment on above: Performed By: #### 1 3588096, 7454050, 5651404, 7826907, 6405242, 2645513, 15593147, 531863510 ####[address] [place] [address] Platelet 375.0 E9/L Normal 150.0-500.0 [facility] Comment on above: Performed By: #### 1 3258456, 3762225, 6524469, 3675391, 6088985, 6087685, 88439939, 589372999 ####[address] [address] Platelet mean volume (Bld) [Entitic vol] 7.1 fL Normal 6.4-10.8 [facility] Comment on above: Performed By: #### 1 2750858, 5165401, 1168848, 8445004, 7015218, 1162278, 62615872, 311799144 ####[facility] [address] [place] [address] RBC 3.5 E12/L Low 4.3-5.9 [facility] Comment on above: Performed By: #### 1 5473335, 9158542, 1462692, 9012923, 2408370, 5968350, 28332948, 311706783 ####[facility] [address] [place] [address] WBC 11.8 E9/L High 4.0-11.0 [facility] Comment on above: Performed By: #### 1 3835243, 6804395, 6396007, 2487933, 7710129, 7090839, 02494799, 385045296 ####[facility] [address] [place] [address] Capillary Glucose POCon 03-20 Glucose [Mass/Vol] 170 mg/dL High 55-99 [facility] Comment on above: Result Comment: Sandhya JOHNSTON Performed By: #### 2 53566161 ####[facility] [address] [place] [address] Glucose [Mass/Vol] 106 mg/dL High 55-99 [facility] Comment on above: Result Comment: Sandhya JOHNSTON Performed By: #### 2 36364388 ####[facility] [address] [place] [address] Glucose [Mass/Vol] 130 mg/dL High 55-99 [facility] Comment on above: Result Comment: Sandhya JOHNSTON Performed By: #### 2 75049907 ####[facility] [address] [place] [address] Glucose [Mass/Vol] 110 mg/dL High 55-99 [facility] Comment on above: Result Comment: Sandhya luo RN/ Performed By: #### 2 76227006 ####[facility] [address] [place] [address] Glucose [Mass/Vol] 87 mg/dL Normal 55-99 [facility] Comment on above: Result Comment: Sandhya luo RN/ Performed By: #### 2 48007917 ####[facility] [address] [place] [address] Glucose [Mass/Vol] 62 mg/dL Normal 55-99 [facility] Comment on above: Result Comment: Sandhya luo RN/ Performed By: #### 2 43319244 ####[facility] [address] [place] [address] [id number] 04-02-2023 HbA1c (Bld) [Mass fraction] 6.6 % High <=5.9 [facility] Comment on above: Performed By: #### 1 8756270, 1739803, 4048485, 8442007, 2854052, 3347242, 29418712, 809039841 ####[facility] [address] [place] [address] Interdisciplinary Note - Miguelito e Manageron 04-02-2023 Interdisciplinary Note - Hat Presser [facility] Comment on above: Result Comment: Elec tronically Signed By: Chanda Adames\.br\Date and Time Signed: 04/02/23 12:45 EST Lipid Panelon 04-02-2023 Cholesterol [Mass/Vol] 153 mg/dL Normal 120-200 [facility] Comment on above: Performed By: #### 1 8550779, 4623018, 5115538, 9555260, 7658478, 7635234, 25315790, 028542252 ####[facility] [address] [place] [address] Cholesterol in HDL [Mass/Vol] 42 mg/dL Invalid Interpretation Code [facility] Comment on above: Result Comment: '>= 60 LOW RISK''<= 40 HIGH RISK' Performed By: #### 1 0766982, 5182923, 8547893, 8568841, 4831303, 3940049, 65643275, 330201948 ####[facility] [address] [place] [address] Cholesterol in LDL [Mass/Vol] 96 mg/dL Normal <=129 [facility] Comment on above: Performed By: #### 1 7086402, 1043071, 2438506, 3358177, 0123712, 1211727, 42502160, 340545395 ####[facility] [address] [place] [address] Cholesterol in VLDL [Mass/Vol] 17 mg/dL Normal 7-40 [facility] Comment on above: Performed By: #### 1 3670581, 1225581, 3758820, 6356962, 2523442, 7711717, 10524639, 237562114 ####[facility] [address] [place] [address] Triglyceride [Mass/Vol] 86 mg/dL Normal <=149 [facility] Comment on above: Performed By: #### 1 1092991, 0329457, 1389591, 6932081, 9950133, 3524065, 95337806, 236664232 ####[facility] [address] [place] [address] Magnesiumon 04-02-2023 Magnesium [Mass/Vol] 1.9 mg/dL Normal 1.3-2.4 [facility] Comment on above: Performed By: #### 1 9181664, 9503436, 0914584, 4847718, 0210140, 4399118, 31462527, 381145742 ####[facility] [address] [place] [address] Message from Medicareon 03-20 Message from Medicare [id number]# 1.00TIFF Normal [facility] Respiratory Panel by PCRon 0 04-02-2023 Adenovirus DNA CAL+non-probe Ql (Nph) Not detected Normal [facility] Comment on above: Result Comment: Test ing was performed using nucleic acid amplification including Influenza A, Influenza A H1, Influenza A H3, Influenza B, RSV A, RSV B, Adenovirus, Human Metapneumovirus, Parainfluenza 1,2,3, and 4, Rhinovirus, Bordetella parapertussis/bronchiseptica, Bordetella holmesii, and Bordetella pertussis. Performed By: #### 1 629458494 ####[place] [address] B. parapertussis DNA CAL+probe Ql (Upper resp) Not detected Normal Not Detected [facility] Comment on above: Performed By: #### 1 [id number] ####[place] [address] B. pertussis DNA CAL+probe Ql (Upper resp) Not detected Normal Not Detected [facility] Comment on above: Performed By: #### 1 739346468 ####[place] [address] FLUAV H1 RNA CAL+non-probe Ql (Nph) Not detected Normal [facility] Comment on above: Performed By: #### 1 569735990 ####[place] [address] FLUAV H3 RNA CAL+non-probe Ql (Nph) Not detected Normal [facility] Comment on above: Performed By: #### 1 830646077 ####[place] [address] FLUAV RNA CAL+non-probe Ql (Nph) Not detected Normal [facility] Comment on above: Performed By: #### 1 893420911 ####[address] FLUBV RNA CAL+non-probe Ql (Nph) Not detected Normal [facility] Comment on above: Performed By: #### 1 773107010 ####[address] Human Metapneumovirus Not detected Normal [facility] Comment on above: Result Comment: This test result should be correlated with clinical presentations and medical history by a healthcare provider to determine its clinical significance. Performed By: #### 1 [id number] ####[address] [place] [address] Parainfluenza virus 1 RNA CAL+non-probe Ql (Nph) Not detected Normal [facility] Comment on above: Performed By: #### 1 894349715 ####[address] [place] [address] Parainfluenza virus 2 RNA CAL+non-probe Ql (Nph) Not detected Normal [facility] Comment on above: Performed By: #### 1 825203539 ####[address] [place] [address] Parainfluenza virus 3 RNA CAL+non-probe Ql (Nph) Not detected Normal [facility] Comment on above: Performed By: #### 1 250834601 ####[address] [place] [address] Parainfluenza virus 4 RNA CAL+non-probe Ql (Nph) Not detected Normal [facility] Comment on above: Performed By: #### 1 492863422 ####[address] [place] [address] Resp Panel Intrl QC Pass Normal [facility] Comment on above: Performed By: #### 1 814235494 ####[address] [place] [address] Rhinovirus+Enterovirus RNA CAL+non-probe Ql (Nph) Not detected Normal [facility] Comment on above: Performed By: #### 1 613754232 ####[address] [place] [address] RSV RNA CAL+non-probe Ql (Nph) Not detected Normal [facility] Comment on above: Performed By: #### 1 [id number] ####[address] [address] TSH With T4fr Reflexon 04-02 TSH Qn 2.19 m[IU]/L Normal 0.34-5.60 [facility] Comment on above: Performed By: #### 1 4345782, 7299375, 5734235, 0114382, 0542602, 4086017, 48470687, 639953362 ####[facility] [address] [place] [address] Valproic Acidon 04-02-2023 Valpro Acid Lvl 55 microgram/mL Normal 50-99 [facility] er [facility] Comment on above: Performed By: #### 1 4162197, 3530303, 7745145, 0118903, 7243807, 3976805, 60909546, 988411475 ####[facility] [address] [place] [address] eGFRon 04-02-2023 eGFR 47 mL/min/1.73 m2 Low >=59 [facility] Comment on above: Order Comment: Order added by Discern Expert. Performed By: #### 1 0368891, 6026944, 9130268, 2168271, 3024137, 2575916, 48855490, 494367263 ####[facility] [address] [place] [address] BMPon 04-01-2023 Anion gap [Moles/Vol] 16 mmol/L Normal 6-16 [facility] Comment on above: Performed By: #### 2 708992, 6156243, 49368069, 78271331, 31662287, 51087351, 9590943 ####[facility] [address] [place] [address] BUN/Creat Ratio 12 No Units Normal 10-20 [facility] Comment on above: Performed By: #### 2 181869, 0168200, 01516321, 15269099, 45251835, 21657504, 7830262 ####[facility] [address] [place] [address] Calcium [Mass/Vol] 9.6 mg/dL Normal 8.9-11.1 [facility] Comment on above: Performed By: #### 2 316503, 7677993, 93713760, 64395141, 41338958, 24032418, 8308118 ####[facility] [address] [place] [address] Chloride [Moles/Vol] 105 mmol/L Normal 101-111 [facility] Comment on above: Performed By: #### 2 901835, 7731135, 89654381, 35484329, 73567600, 66559337, 3758998 ####[facility] [address] [place] [address] CO2 [Moles/Vol] 21 mmol/L Normal 21-31 [facility] Comment on above: Performed By: #### 2 634017, 7966197, 45928307, 30923008, 12766449, 13194594, 1470774 ####[facility] [address] [place] [address] Creatinine [Mass/Vol] 1.4 mg/dL High 0.5-1.3 [facility] Comment on above: Performed By: #### 2 053380, 5155070, 63465457, 28087203, 02289023, 78842909, 6777198 ####[facility] [address] [place] [address] Glucose [Mass/Vol] 75 mg/dL Normal 55-199 [facility] Comment on above: Performed By: #### 2 614473, 8418651, 76290028, 98328830, 98106364, 71676176, 7481036 ####[facility] [address] [place] [address] Potassium [Moles/Vol] 5.5 mmol/L High 3.5-5.3 [facility] Comment on above: Performed By: #### 2 764936, 3170900, 88328206, 56658044, 73580503, 36858270, 8409916 ####[facility] [address] [place] [address] Sodium [Moles/Vol] 136 mmol/L Normal 135-145 [facility] Comment on above: Performed By: #### 2 173230, 2776618, 00855000, 34769526, 33673526, 23368501, 4383177 ####[facility] [address] [place] [address] Urea nitrogen [Mass/Vol] 17 mg/dL Normal 5-21 [facility] Comment on above: Performed By: #### 2 857796, 9188737, 28652674, 32477698, 54592464, 33885799, 8583499 ####[address] [address] BNPon 04-01-2023 Int Ctr BNP Pass Normal [facility] Comment on above: Performed By: #### 2 170626, 9611653, 83842372, 22045137, 70213435, 57411022, 0505713 ####[address] [address] Natriuretic peptide B (Bld) [Mass/Vol] 465 pg/mL High 5-80 [facility] Comment on above: Performed By: #### 2 740273, 8664949, 83429389, 30574501, 12506482, 05398556, 4818920 ####[address] [address] CBC w/ Auto Diffon 4 Basophil Absolute 0.0 E9/L Normal 0.0-0.2 [facility] Comment on above: Performed By: #### 2 883505, 2530411, 86668737, 36146680, 24405101, 58816385, 5385099 ####[facility] [address] [place] [address] Basophils/100 WBC (Bld) 0.3 % Normal 0.0-2.0 [facility] Comment on above: Performed By: #### 2 726174, 2237290, 89794792, 49340102, 18956464, 99104363, 9308351 ####[facility] [address] [place] [address] Eos Absolute 0.4 E9/L Normal 0.0-0.5 [facility] Comment on above: Performed By: #### 2 166506, 9700401, 38201675, 58028232, 82576276, 92019361, 8548388 ####[address] [place] [address] Eosinophils/100 WBC (Bld) 3.3 % Normal 0.0-8.0 [facility] Comment on above: Performed By: #### 2 176955, 3717681, 98727721, 09860358, 00135181, 80896628, 5975794 ####[address] [address] Erythrocyte distribution width (RBC) [Ratio] 14.1 % Normal 10.9-14.2 [facility] Comment on above: Performed By: #### 2 954087, 5948411, 24415073, 17488561, 06202223, 64240674, 4089043 ####[address] [address] Hematocrit (Bld) [Volume fraction] 37.0 % Normal 34.0-46.0 [facility] Comment on above: Performed By: #### 2 436778, 4538953, 89191552, 27171748, 67739416, 33035806, 5717781 ####[address] [address] Hemoglobin (Bld) [Mass/Vol] 11.9 g/dL Low 12.0-16.0 [facility] Comment on above: Performed By: #### 2 562371, 8264802, 05548611, 63676807, 15689941, 63665177, 3074174 ####[address] [address] Lymph Absolute 1.5 E9/L Normal 1.0-4.0 [facility] Comment on above: Performed By: #### 2 755866, 6973672, 62409115, 64703398, 38185991, 66936811, 2467579 ####[facility] [address] [place] [address] Lymphocytes/100 WBC (Bld) 13.6 % Low 14.0-50.0 [facility] Comment on above: Performed By: #### 2 694689, 1808008, 89607860, 00350382, 94642703, 57759703, 4145053 ####[address] [place] [address] MCH (RBC) [Entitic mass] 29.6 pg Normal 27.0-34.0 [facility] Comment on above: Performed By: #### 2 806070, 6814415, 94012076, 92202000, 13573997, 28643261, 8876810 ####[facility] [address] [place] [address] MCHC (RBC) [Mass/Vol] 32.1 g/dL Normal 31.4-36.0 [facility] Comment on above: Performed By: #### 2 492273, 0067194, 11965818, 53412979, 78331499, 19445211, 2461418 ####[address] [place] [address] MCV (RBC) [Entitic vol] 92.2 fL Normal 80.0-100.0 [facility] Comment on above: Performed By: #### 2 657661, 3114821, 59823265, 50286519, 61475121, 17461418, 6718007 ####[facility] [address] [place] [address] [place] Absolute 1.2 E9/L High 0.2-1.0 [facility] Comment on above: Performed By: #### 2 006964, 7293673, 77059816, 46737089, 96513105, 61311822, 5557428 ####[facility] [address] [place] [address] Monocytes/100 WBC (Bld) 10.7 % Normal 4.0-14.0 [facility] Comment on above: Performed By: #### 2 788411, 8045469, 56701322, 63867307, 59253644, 49030655, 4225941 ####[facility] [address] [place] [address] Neutro Absolute 8.0 E9/L High 2.0-7.5 [facility] Comment on above: Performed By: #### 2 960537, 1403379, 10593451, 01403028, 67576816, 07983679, 3509232 ####[address] [address] Neutro Auto 72.1 % Normal 36.0-75.0 [facility] Comment on above: Performed By: #### 2 789216, 6520633, 19108549, 28180400, 33212605, 39390482, 6635099 ####[address] [address] Platelet 404.0 E9/L Normal 150.0-500.0 [facility] Comment on above: Performed By: #### 2 734084, 4528581, 74939278, 66759662, 39589011, 31384399, 5580808 ####[facility] [address] [place] [address] Platelet mean volume (Bld) [Entitic vol] 7.5 fL Normal 6.4-10.8 [facility] Comment on above: Performed By: #### 2 444075, 1047678, 03569664, 83494134, 94591473, 19634300, 4436055 ####[address] [place] [address] RBC 4.0 E12/L Low 4.3-5.9 [facility] Comment on above: Performed By: #### 2 467250, 3270269, 47364589, 59595033, 39231583, 97619767, 2188128 ####[facility] [address] [place] [address] WBC 11.1 E9/L High 4.0-11.0 [facility] Comment on above: Performed By: #### 2 587737, 9821182, 07602604, 66230588, 47976806, 38632778, 4662258 ####[facility] [address] [place] [address] CT Chest w/o Contraston 03-20 CT Chest w/o Contrast Normal [facility] Capillary Glucose POCon 03-20 Glucose [Mass/Vol] 66 mg/dL Normal 55-99 [facility] Comment on above: Result Comment: Sandhya luo RN/ Performed By: #### 2 49454043 ####[facility] [address] [place] [address] Consent for Treatmenton 03-20 Consent for Treatment [id number] [id number]# 1.00TIFF Normal [facility] ED Clinical Summaryon 2023 ED Clinical Summary Normal [facility] ED Patient Education Noteon 04-01-2023 ED Patient Education Note Normal [facility] ED Patient Summaryon 024 ED Patient Summary Normal [facility] Influenza A&B Agon 4 Influenzae A Ag Negative Normal Negative [facility] Comment on above: Performed By: #### 2 [id number], 63300486 ####[facility] [address] [place] [address] Influenzae B Ag Negative Normal Negative [facility] Comment on above: Result Comment: Test sensitivity and specificity vary for age group, specimen type, antigen types, and prevalence of disease. Test results must be evaluated in conjunction with other clinical data available to the physician. Individuals who received nasally administered Influenza A vaccine may have positive test results up to 3 days after vaccination. Performed By: #### 2 [id number], 12269284 ####[facility] [address] [place] [address] Interdisciplinary Note - Mann singon 04-01-2023 Interdisciplinary Note - Nursing received no paper work from [employer] regarding pt medications. Normal [facility] Lactic Acidon 04-01-2023 Lactic Acid Lvl 0.7 mmol/L Normal 0.5-2.2 [facility] Comment on above: Performed By: #### 2 682810, 2625413, 84454546, 07911302, 84395906, 90253515, 1922134 ####[facility] [address] [place] [address] Monitor Recordon 04-01-2023 Monitor Record [id number]# 1.00TIFF Normal [facility] PT & PTTon 04-01-2023 aPTT Coag (PPP) [Time] 31.7 second(s) Normal 25.1-36.5 [facility] Comment on above: Result Comment: Para meter 15 days - 4 weeks 1 - 5 months 6 - 11 months 1 - 5 years 6 - 10 years 11 - 17 years PTT Mean: 35.4 (27.6-45.6) Mean: 33.5 (24.8-40.7) Mean: 32.4 (25.1-40.7) Mean: 31.6 (24.0-39.2) Mean: 31.6 (26.9-38.7) Mean: 31.0 (24.6-38.4) Pediatric Reference ranges were obtained from a study by Clarence Anguiano et al. prepared from 1437 samples obtained at 7 different centers using the same coagulation reagent and instrumentation as [facility]. Currently there are no coagulation studies available worldwide for children to 14 days, and no normal ranges. Heparin therapeutic range (represented by Anti-Factor Xa activity of 0.2 - 0.4 U/mL) corresponds to PTT of 56.6 - 109.0 sec. Performed By: #### 2 079875, 7248094, 39535909, 72227094, 27595811, 90839279, 4513779 ####[facility] [address] [place] [address] INR Coag (PPP) [Relative time] 1.24 {INR} Invalid Interpretation Code [facility] Comment on above: Result Comment: INR results are specifically intended to assess patients stabilized on long-term Anticoagulation therapy suggested INR?s ?Less Intensive Anticoagulation? 2.0 ? 3.0Conventional Range 3.0 ? 4.5 Performed By: #### 2 713148, 1686194, 98280171, 94934479, 48611663, 50320617, 7505454 ####[facility] [address] [place] [address] PT Coag (PPP) [Time] 13.9 second(s) High 9.4-12.5 [facility] Comment on above: Result Comment: 15 d ays - 4 weeks 1 - 5 months 6 -11 months 1 ? 5 years 6 ? 10 years 11 -17 years Mean: 11.2 (9.5 ? 12.6) Mean: 11.0 (9.7 ? 12.8) Mean: 11.0 (9.8 ? 13.0) Mean: 11.3 (9.9 ? 13.4) Mean: 11.7 (10.0 ? 14.6) Mean: 11.8 (10.0 - 14.1) Pediatric Reference ranges were obtained from a study by Clarence Anguiano et al. prepared from 1437 samples obtained at 7 different centers using the same coagulation reagent and instrumentation as [facility]. Currently there are no coagulation studies available worldwide for children to 14 days, and no normal ranges. Performed By: #### 2 391391, 5746977, 45966382, 65466210, 78492771, 63852415, 1499554 ####[facility] [address] [place] [address] Pre-Arrival Noteon Pre-Arrival Note Normal [facility] Procalcitoninon 04-01-2023 Procalcitonin .17 ng/mL Normal .00-.50 [facility] Comment on above: Result Comment: <0.5 ng/mL Low risk of severe sepsis and/or shock>2.0 ng/mL High risk of severe sepsis and/or shockConcentrations under 0.5 ng/mL do not exclude local infections or systemic infections in their initial stages (e.g.. under six hours from onset of illness). PCT concentrations between 0.5 and 2.0 ng/mL should be interpreted with consideration of the patient's history. In this range, it is recommended to retest PCT within 6 to 24 hours. Performed By: #### 1 [id number], [id number] ####[address] [place] [address] Progress Note - Pharmacyon 0 04-01-2023 Progress Note - Pharmacy Normal [facility] Rapid COVID Antigen ([facility])on 04-01-2023 Rapid COV Int NEG Ctl Pass Normal [facility] Comment on above: Performed By: #### 2 [id number], [id number] ####[address] [address] Rapid COV Int POS Ctl Pass Normal [facility] Comment on above: Performed By: #### 2 [id number], [id number] ####[address] [address] SARS-CoV+SARS-CoV-2 (COVID-19) Ag IA.rapid Ql (Resp) Not detected Normal Not Detected [facility] Comment on above: Result Comment: The YOGITECHitor? System for Rapid Detection of SARS-CoV-2 is a chromatographic digital immunoassay intended for the direct and qualitative detection of SARS-CoV-2 nucleocapsid antigens in nasal swabs from individuals who are suspected of COVID-19 by their healthcare provider within the first five days of the onset of symptoms. Negative results should be treated as presumptive, do not rule out SARS-CoV-2 infection and should not be used as the sole basis for treatment or patient management decisions, including infection control decisions. Negative results should be considered in the context of a patient?s recent exposures, history and the presence of clinical signs and symptoms consistent with COVID-19, and confirmed with a molecular assay, if necessary, for patient management. For in vitro diagnostic use. In the [facility], only for use under an Emergency Use Authorization. In the [place], this test has not been FDA cleared or approved; this test has been authorized by FDA under an EUA for use by authorized laboratories; use by laboratories certified under the CLIA, 42 U.S.C. ?263a, that meet requirements to perform moderate, high, or waived complexity tests and at the Point of Care (POC), i.e., in patient care settings operating under a CLIA Certificate of Waiver, Certificate of Compliance, or Certificate of Accreditation.This test has been authorized only for the detection of proteins from SARS-CoV-2, not for any other viruses or pathogens; and, in the [place], this test is only authorized for the duration of the declaration that circumstances exist justifying the authorization of emergency use of in vitro diagnostics for detection and/or diagnosis of the virus that causes COVID-19 under Section 564(b)(1) of the Act, 21 U.S.C. ? 360bbb-3(b)(1), unless the authorization is terminated or revoked sooner. Performed By: #### 2 [id number], [id number] ####[facility] [address] [place] [address] Troponin 0 Hr.on 04-01-2023 Troponin 9.60 pg/mL Low 10.10-27.10 [facility] Comment on above: Result Comment: The 95% CI (Confidence Interval) PPV (Positive Predictive Value) for myocardial infarction in females is 38 pg/mL, in males 51 pg/mL. The results should be used in conjunction with clinical conditions of myocardial infarction.(Access High Sensitivity Troponin I Instructions For Use, [place], September 2017) Performed By: #### 2 127818, 2114645, 73460891, 28708157, 36180082, 86838784, 2683148 ####[facility] [address] [place] [address] Troponin 3 Hr.on 04-01-2023 Troponin 6.60 pg/mL Low 10.10-27.10 [facility] Comment on above: Result Comment: The 95% CI (Confidence Interval) PPV (Positive Predictive Value) for myocardial infarction in females is 38 pg/mL, in males 51 pg/mL. The results should be used in conjunction with clinical conditions of myocardial infarction.(Access High Sensitivity Troponin I Instructions For Use, DSTLD, September 2017) Performed By: #### 1 [id number], [id number] ####[facility] [address] [place] [address] Troponin 6 Hr.on 04-01-2023 Troponin 7.10 pg/mL Low 10.10-27.10 [facility] Comment on above: Result Comment: The 95% CI (Confidence Interval) PPV (Positive Predictive Value) for myocardial infarction in females is 38 pg/mL, in males 51 pg/mL. The results should be used in conjunction with clinical conditions of myocardial infarction.(Access High Sensitivity Troponin I Instructions For Use, DSTLD, September 2017) Performed By: #### 1 [id number] ####[address] [place] [address] Troponin 9 Hr.on 04-01-2023 Troponin 8.00 pg/mL Low 10.10-27.10 [facility] Comment on above: Result Comment: The 95% CI (Confidence Interval) PPV (Positive Predictive Value) for myocardial infarction in females is 38 pg/mL, in males 51 pg/mL. The results should be used in conjunction with clinical conditions of myocardial infarction.(Access High Sensitivity Troponin I Instructions For Use, DSTLD, September 2017) Performed By: #### 1 [id number] ####[facility] [address] [place] [address] XR Chest Single Viewon 04-01 XR Chest Single View Normal [facility] eGFRon 04-01-2023 eGFR 43 mL/min/1.73 m2 Low >=59 [facility] Comment on above: Order Comment: Order added by Discern Expert. Performed By: #### 2 349457, 1768418, 29857037, 12223160, 87247375, 32919078, 8710235 ####[facility] [address] [place] [address] BMPon 03-29-2023 Anion gap [Moles/Vol] 12 mmol/L Normal 6-16 [facility] Comment on above: Performed By: #### 2 549582, 11961092, 6431246 ####[facility] [address] [place] [address] BUN/Creat Ratio 15 No Units Normal 10-20 [facility] Comment on above: Performed By: #### 2 851734, 45084467, 6797109 ####[facility] [address] [place] [address] Calcium [Mass/Vol] 8.1 mg/dL Low 8.9-11.1 [facility] Comment on above: Performed By: #### 2 840739, 05390339, 0226437 ####[facility] [address] [place] [address] Chloride [Moles/Vol] 105 mmol/L Normal 101-111 [facility] Comment on above: Performed By: #### 2 628451, 91445230, 0505624 ####[facility] [address] [place] [address] CO2 [Moles/Vol] 21 mmol/L Normal 21-31 [facility] Comment on above: Performed By: #### 2 140604, 83686752, 8722478 ####[facility] [address] [place] [address] Creatinine [Mass/Vol] 1.5 mg/dL High 0.5-1.3 [facility] Comment on above: Performed By: #### 2 474074, 53338332, 5988276 ####[facility] [address] [place] [address] Glucose [Mass/Vol] 153 mg/dL Normal 55-199 [facility] Comment on above: Performed By: #### 2 844346, 35807390, 6164864 ####[facility] [address] [place] [address] Potassium [Moles/Vol] 5.3 mmol/L Normal 3.5-5.3 [facility] Comment on above: Performed By: #### 2 593358, 54287197, 7210357 ####[facility] [address] [place] [address] Sodium [Moles/Vol] 133 mmol/L Low 135-145 [facility] Comment on above: Performed By: #### 2 795793, 35335432, 4634929 ####[address] [address] Urea nitrogen [Mass/Vol] 22 mg/dL High 5-21 [facility] Comment on above: Performed By: #### 2 824776, 69329566, 7821135 ####[facility] [address] [place] [address] CBC w/ Auto Diffon 4 Basophils/100 WBC (Bld) 0.2 % Normal 0.0-2.0 [facility] Comment on above: Performed By: #### 2 742800, 84338571, 6400702 ####[address] [address] Eosinophils/100 WBC (Bld) 7.7 % Normal 0.0-8.0 [facility] Comment on above: Performed By: #### 2 631795, 86047050, 7493136 ####[address] [address] Erythrocyte distribution width (RBC) [Ratio] 14.1 % Normal 10.9-14.2 [facility] Comment on above: Performed By: #### 2 643319, 12593109, 5318063 ####[address] [address] Hematocrit (Bld) [Volume fraction] 32.0 % Low 34.0-46.0 [facility] Comment on above: Performed By: #### 2 854283, 39678615, 9154423 ####[address] [address] Hemoglobin (Bld) [Mass/Vol] 10.3 g/dL Low 12.0-16.0 [facility] Comment on above: Performed By: #### 2 532983, 87155802, 2476453 ####[address] [address] Lymphocytes/100 WBC (Bld) 22.1 % Normal 14.0-50.0 [facility] Comment on above: Performed By: #### 2 250876, 75870138, 5891300 ####[address] [address] MCH (RBC) [Entitic mass] 30.0 pg Normal 27.0-34.0 [facility] Comment on above: Performed By: #### 2 916101, 84894178, 0169592 ####[address] [address] MCHC (RBC) [Mass/Vol] 31.9 g/dL Normal 31.4-36.0 [facility] Comment on above: Performed By: #### 2 590476, 50407638, 6231157 ####[address] [address] MCV (RBC) [Entitic vol] 94.1 fL Normal 80.0-100.0 [facility] Comment on above: Performed By: #### 2 307712, 06694374, 8974091 ####[address] [address] Monocytes/100 WBC (Bld) 9.2 % Normal 4.0-14.0 [facility] Comment on above: Performed By: #### 2 897806, 60910498, 8191768 ####[address] [address] NEUTRO AUTO 60.8 % Normal 36.0-75.0 [facility] Comment on above: Performed By: #### 2 971820, 34652143, 7540865 ####[address] [address] Platelet mean volume (Bld) [Entitic vol] 7.5 fL Normal 6.4-10.8 [facility] Comment on above: Performed By: #### 2 698602, 84838087, 8968119 ####[facility] [address] [place] [address] Basophil Absolute 0.0 E9/L Normal 0.0-0.2 [facility] Comment on above: Performed By: #### 2 065920, 43492870, 8250186 ####[address] [address] Eos Absolute 0.9 E9/L High 0.0-0.5 [facility] Comment on above: Performed By: #### 2 551524, 03600523, 8449955 ####[address] [address] Lymph Absolute 2.5 E9/L Normal 1.0-4.0 [facility] Comment on above: Performed By: #### 2 594735, 86603801, 8189761 ####[address] [address] [place] Absolute 1.0 E9/L Normal 0.2-1.0 [facility] Comment on above: Performed By: #### 2 256734, 33557246, 5264081 ####[address] [address] Neutro Absolute 6.8 E9/L Normal 2.0-7.5 [facility] Comment on above: Performed By: #### 2 347491, 51009945, 0596930 ####[address] [address] Platelet 270.0 E9/L Normal 150.0-500.0 [facility] Comment on above: Performed By: #### 2 574257, 93929382, 1039925 ####[address] [address] RBC 3.4 E12/L Low 4.3-5.9 [facility] Comment on above: Performed By: #### 2 706183, 96641066, 8888519 ####[address] [place] [address] WBC 11.3 E9/L High 4.0-11.0 [facility] Comment on above: Performed By: #### 2 440592, 92747691, 3438426 ####[facility] [address] [place] [address] [facility] CBC W/ AUTO DIFFon 03-20 Basophils (Bld) [#/Vol] 0.0 10*3/uL [facility] EOS ABSOLUTE 0.9 High [facility] Interpretation and review of laboratory results Abnormal [facility] LYMPH ABSOLUTE 2.5 [facility] MONO ABSOLUTE 1.0 [facility] NEUTRO ABSOLUTE 6.8 [facility] Platelets (Bld) [#/Vol] 270.0 10*3/uL [facility] RBC (Bld) [#/Vol] 3.4 10*6/uL Low [facility] WBC (Bld) [#/Vol] 11.3 10*3/uL High [facility] Original Ordering Provider: [facility] Orderon 03-29-2023 Physician Order [id number]# 1.00TIFF Normal [facility] eGFRon 03-29-2023 eGFR 40 mL/min/1.73 m2 Low >=59 [facility] Comment on above: Order Comment: Order added by Discern Expert. Performed By: #### 2 757800, 17177232, 5389407 ####[facility] [address] [place] [address] IntraOperative Documentson 0 03-12-2023 IntraOperative Documents [id number]# 1.00TIFF Normal [facility] Consenton 03-10-2023 Consent [id number]# 1.00TIFF Normal [facility] Discharge Instructionson Discharge Instructions [id number]# 1.00TIFF Normal [facility] Main OR Intraoperative Recor don 03-10-2023 Main OR Intraoperative Record Normal [facility] Postoperative Documentson Postoperative Documents [id number]# 1.00TIFF Normal [facility] Consent for Treatmenton 02-17 Consent for Treatment [id number]#1 .00TIFF Normal [facility] Discharge Instructionson Discharge Instructions Normal [facility] Comment on above: Result Comment: Elec tronically Signed By: ACACIA GARVIN, JANNY Parker\.br\Date and Time Signed: 03/07/23 13:39 EST Endoscopic Procedure Report - Otheron 03-07-2023 Endoscopic Procedure Report - Other Normal [facility] Comment on above: Result Comment: Elec tronically Signed By: Kain VIVEROS, Giulia Kahn\.br\Date and Time Signed: 03/07/23 13:28 EST Other Comment: Corazon sanon Attachment - attachment storage system not supported [id number] Can be viewed in source systemMissing Attachment - attachment storage system not supported [id number] Can be viewed in source systemMissing Attachment - attachment storage system not supported 1207561 Can be viewed in source systemMissing Attachment - attachment storage system not supported 9333370 Can be viewed in source systemMissing Attachment - attachment storage system not supported 8212806 Can be viewed in source systemMissing Attachment - attachment storage system not supported 3967129 Can be viewed in source systemMissing Attachment - attachment storage system not supported 1347027 Can be viewed in source systemMissing Attachment - attachment storage system not supported 6614033 Can be viewed in source systemMissspaulding [facility] Attachment - attachment storage system not supported 6972073 Can be viewed in source systemMissing Attachment - attachment storage system not supported 5133647 Can be viewed in source systemMissspaulding hospital [facility] Attachment - attachment storage system not supported 3413960 Can be viewed in source system Inpatient Patient Summaryon 03-07-2023 Inpatient Patient Summary Normal [facility] Main OR PACU I Recordon 02-17 Main OR PACU I Record Normal [facility] Monitor Recordon 03-07-2023 Monitor Record [id number]# 1.00TIFF [facility] Monitor Record [id number]# 1.00TIFF [facility] Outpatient Surgery Discharge Instructionon 03-07-2023 Outpatient Surgery Discharge Instruction [facility] Patient Education - Texton 0 03-07-2023 Patient Education - Text [facility] Progress Note-Physicianon Progress Note-Physician Normal [facility] Comment on above: Result Comment: Elec tronically Signed By: Lance Bender)Chance\.br\Date and Time Signed: 03/07/23 14:02 EST Progress Note-Physician Normal [facility] Comment on above: Result Comment: Elec tronically Signed By: Chance Ambrose DO\.br\Date and Time Signed: 03/07/23 12:44 EST Coding Queryon 01-23-2023 Coding Query [facility] Consent for Procedure/Surger yon 01-16-2023 Consent for Procedure/Surgery [id number]#1 .00TIFF [facility] Consent for Treatmenton 12-20 Consent for Treatment [id number]#1 .00TIFF [facility] Main OR Preoperative Recordo n 01-16-2023 Main OR Preoperative Record [facility] Nursing Assessmenton 023 Nursing Assessment [id number]# 1.00TIFF [facility] Discharge Instructionson Discharge Instructions [id number]# 1.00TIFF [facility] Transfer Documentson 023 Transfer Documents [id number]# 1.00TIFF [facility] Auto Diffon 01-09-2023 Basophils/100 WBC (Bld) 0.3 % Normal 0.0-2.0 [facility] Comment on above: Order Comment: Order Added by Discern Expert. Performed By: #### 1 6483752, 6292738, 0393603, 4738061, 3796413, 2322317 ####[address] [place] [address] Basophils/Leukocytes Auto (Bld) [Pure # fraction] 0.0 E9/L Normal 0.0-0.2 [facility] Comment on above: Order Comment: Order Added by Discern Expert. Performed By: #### 1 3364094, 5052801, 3101072, 7644247, 1693441, 4023185 ####[address] [address] Eosinophils/100 WBC (Bld) 5.3 % Normal 0.0-8.0 [facility] Comment on above: Order Comment: Order Added by Discern Expert. Performed By: #### 1 7640644, 9373514, 0658342, 5769391, 0812107, 4960270 ####[address] [address] Eosinophils/Leukocytes Auto (Bld) [Pure # fraction] 0.5 E9/L Normal 0.0-0.5 [facility] Comment on above: Order Comment: Order Added by Discern Expert. Performed By: #### 1 9174483, 2320739, 6685192, 4118657, 2874616, 5430948 ####[address] [address] Lymphocytes/100 WBC (Bld) 35.3 % Normal 14.0-50.0 [facility] Comment on above: Order Comment: Order Added by Discern Expert. Performed By: #### 1 3147361, 6517047, 6531269, 6929238, 6911284, 1513319 ####[address] [address] Lymphocytes/Leukocytes Auto (Bld) [Pure # fraction] 3.1 E9/L Normal 1.0-4.0 [facility] Comment on above: Order Comment: Order Added by Michael Expert. Performed By: #### 1 8771519, 5339286, 5172352, 3533755, 3125805, 8799174 ####[facility] [address] [place] [address] Monocytes/100 WBC (Bld) 6.3 % Normal 4.0-14.0 [facility] Comment on above: Order Comment: Order Added by Discern Expert. Performed By: #### 1 0761138, 0949038, 6790624, 0692216, 6362926, 9294484 ####[address] [place] [address] Monocytes/Leukocytes Auto (Bld) [Pure # fraction] 0.6 E9/L Normal 0.2-1.0 [facility] Comment on above: Order Comment: Order Added by Michael Expert. Performed By: #### 1 0479804, 1830708, 6172029, 9102632, 1620764, 5045535 ####[address] [address] Neutrophils/100 WBC (Bld) 52.8 % Normal 36.0-75.0 [facility] Comment on above: Order Comment: Order Added by Michael Expert. Performed By: #### 1 4462360, 5918175, 4591786, 5437586, 4545928, 5590175 ####[address] [address] Neutrophils/Leukocytes Auto (Bld) [Pure # fraction] 4.7 E9/L Normal 2.0-7.5 [facility] Comment on above: Order Comment: Order Added by Michael Expert. Performed By: #### 1 4941692, 8520101, 4749159, 5944671, 8545427, 3735282 ####[address] [place] [address] CBC w/ Auto Diffon 3 Erythrocyte distribution width (RBC) [Ratio] 13.5 % Normal 10.9-14.2 [facility] Comment on above: Performed By: #### 1 8278292, 4074384, 9151986, 8760259, 8337193, 2555432 ####[facility] [address] [place] [address] Hematocrit (Bld) [Volume fraction] 31.4 % Low 34.0-46.0 [facility] Comment on above: Performed By: #### 1 3039633, 8298959, 5211977, 6818204, 3613900, 2515920 ####[address] [place] [address] Hemoglobin (Bld) [Mass/Vol] 10.6 g/dL Low 12.0-16.0 [facility] Comment on above: Performed By: #### 1 3561184, 4487265, 9299960, 8548088, 0476511, 9464512 ####[address] [address] MCH (RBC) [Entitic mass] 30.5 pg Normal 27.0-34.0 [facility] Comment on above: Performed By: #### 1 8401524, 3875895, 4990343, 4423284, 2865095, 3947451 ####[address] [place] [address] MCHC (RBC) [Mass/Vol] 33.8 g/dL Normal 31.4-36.0 [facility] Comment on above: Performed By: #### 1 7479936, 8147077, 4584228, 5096984, 6699817, 8432046 ####[address] [place] [address] MCV (RBC) [Entitic vol] 90.2 fL Normal 80.0-100.0 [facility] Comment on above: Performed By: #### 1 4456380, 9062564, 4334665, 7553298, 9420656, 5987589 ####[address] [place] [address] Platelet mean volume (Bld) [Entitic vol] 7.2 fL Normal 6.4-10.8 [facility] Comment on above: Performed By: #### 1 9316931, 0482924, 6615629, 8369620, 3755990, 0127570 ####[facility] [address] [place] [address] Platelets (Bld) [#/Vol] 255.0 E9/L Normal 150.0-500.0 [facility] Comment on above: Performed By: #### 1 1793231, 8176346, 9955328, 6465366, 6448022, 2907778 ####[facility] [address] [place] [address] RBC (Bld) [#/Vol] 3.5 E12/L Low 4.3-5.9 [facility] Comment on above: Performed By: #### 1 5406293, 8039131, 6981389, 3384366, 1466818, 1628259 ####[address] [address] WBC corrected for nucl RBC Auto (Bld) [#/Vol] 8.8 E9/L Normal 4.0-11.0 [facility] Comment on above: Performed By: #### 1 9280746, 6974636, 7605689, 8727744, 8625829, 4561006 ####[address] [address] CMPon 01-09-2023 Albumin [Mass/Vol] 2.8 g/dL Low 3.3-5.0 [facility] Comment on above: Performed By: #### 1 8546781, 0764826, 4683670, 6019495, 7574515, 1953085 ####[address] [place] [address] Albumin/Globulin (S) [Mass conc ratio] 1.0 Low 1.1-2.2 [facility] Comment on above: Performed By: #### 1 2853678, 4770854, 2341719, 4296833, 8107418, 7572064 ####[address] [place] [address] ALP [Catalytic activity/Vol] 88 Int._Unit/L Normal 21-98 [facility] Comment on above: Performed By: #### 1 6575952, 6290996, 4098631, 5595866, 4259011, 0637569 ####[facility] [address] [place] [address] ALT No additional P-5'-P [Catalytic activity/Vol] 17 Int._Unit/L Normal 6-46 [facility] Comment on above: Performed By: #### 1 3705026, 6685183, 1668451, 0850410, 5424937, 1738441 ####[facility] [address] [place] [address] Anion gap [Moles/Vol] 9 mmol/L Normal 6-16 [facility] Comment on above: Performed By: #### 1 8946856, 0034344, 5180069, 4261925, 6312541, 1639028 ####[facility] [address] [place] [address] AST [Catalytic activity/Vol] 17 Int._Unit/L Normal 5-43 [facility] Comment on above: Performed By: #### 1 9198257, 6994206, 2423017, 8943691, 2585378, 4123052 ####[facility] [address] [place] [address] Bilirubin [Mass/Vol] 0.4 mg/dL Normal 0.0-1.1 [facility] Comment on above: Performed By: #### 1 7274907, 5716431, 6141025, 9858636, 7406623, 8116862 ####[facility] [address] [place] [address] Calcium [Mass/Vol] 8.4 mg/dL Low 8.9-11.1 [facility] [facility] Comment on above: Performed By: #### 1 [id number], 5713465, 0040857, 0499219, 2821212, 8344571 ####[facility] [address] [place] [address] Chloride [Moles/Vol] 112 mmol/L High 101-111 [facility] Comment on above: Performed By: #### 1 7202554, 7543892, 3647198, 9655773, 4460707, 1184514 ####[facility] [address] [place] [address] CO2 [Moles/Vol] 22 mmol/L Normal 21-31 [facility] Comment on above: Performed By: #### 1 9367312, 5654606, 1627535, 1088564, 1668061, 9733180 ####[facility] [address] [place] [address] Creatinine [Mass/Vol] 1.3 mg/dL Normal 0.5-1.3 [facility] Comment on above: Performed By: #### 1 6772263, 7152015, 0266429, 9676093, 6992487, 1182927 ####[facility] [address] [place] [address] Globulin (S) [Mass/Vol] 2.7 g/dL Normal 1.4-4.0 [facility] Comment on above: Performed By: #### 1 1372534, 9172941, 9300260, 7440647, 3695023, 8252887 ####[facility] [address] [place] [address] Glucose [Mass/Vol] 90 mg/dL Normal 55-199 [facility] Comment on above: Result Comment: If t his glucose result represents a fasting glucose, interpretation should refer to the following reference range: 55-99 mg/dL Performed By: #### 1 6918091, 5496839, 0240835, 0978262, 4672710, 4250479 ####[facility] [address] [place] [address] Potassium [Moles/Vol] 3.9 mmol/L Normal 3.5-5.3 [facility] Comment on above: Performed By: #### 1 9885271, 6297199, 1915318, 5008160, 7609795, 5055706 ####[facility] [address] [place] [address] Protein [Mass/Vol] 5.5 g/dL Low 6.0-7.8 [facility] Comment on above: Performed By: #### 1 5509422, 3143052, 8409168, 5651536, 5800504, 4510309 ####[facility] [address] [place] [address] Sodium [Moles/Vol] 139 mmol/L Normal 135-145 [facility] Comment on above: Performed By: #### 1 4468734, 4524104, 9218138, 5368686, 1495486, 4115304 ####[facility] [address] [place] [address] Urea nitrogen [Mass/Vol] 30 mg/dL High 5-21 [facility] Comment on above: Performed By: #### 1 8428336, 8570059, 8969866, 1448425, 0387157, 7266589 ####[facility] [address] [place] [address] Urea nitrogen/Creatinine [Mass ratio] 23 No Units High 10-20 [facility] Comment on above: Performed By: #### 1 8671330, 2180849, 3864977, 9585443, 4696911, 9938374 ####[facility] [address] [place] [address] Capillary Glucose POCon 12-19 Glucose [Mass/Vol] 92 mg/dL Normal 55-99 [facility] Comment on above: Result Comment: Sandhya JOHNSTON Performed By: #### 2 [id number] ####[facility] [address] [place] [address] Glucose [Mass/Vol] 84 mg/dL Normal 55-99 [facility] Comment on above: Result Comment: Sandhya JOHNSTON Performed By: #### 2 16446056 ####[facility] [address] [place] [address] Inpatient Clinical Summaryon 01-09-2023 Inpatient Clinical Summary Normal [facility] Inpatient Patient Summaryon 01-09-2023 Inpatient Patient Summary Normal [facility] Inpatient Patient Summary Normal [facility] Interdisciplinary Note - Miguelito e Manageron 01-09-2023 Interdisciplinary Note - Hat Presser Normal [facility] Comment on above: Result Comment: Elec tronically Signed By: Mai Wong RN\.br\Date and Time Signed: 01/09/23 12:53 EST Magnesiumon 01-09-2023 Magnesium [Mass/Vol] 1.8 mg/dL Normal 1.3-2.4 [facility] Comment on above: Performed By: #### 1 0299026, 9646469, 3141664, 7709793, 7705390, 7422565 ####[facility] [address] [place] [address] Monitor Recordon 01-09-2023 Monitor Record [id number]# 1.00TIFF Normal [facility] Progress Note-Physicianon Progress Note-Physician Normal [facility] Comment on above: Result Comment: Elec tronically Signed By: Marybel Sofia\.br\Date and Time Signed: 01/09/23 00:25 EST\.br\Electronically Co-Signed By: JALEEL VIVEROS, Michelle\.br\Date and Time Co-Signed: 01/09/23 07:34 EST Valproic Acidon 01-09-2023 Valproate [Moles/Vol] 22 microgram/mL Low 50-99 [facility] Comment on above: Performed By: #### 1 8926214, 9729755, 6669099, 3519859, 0122938, 5771517 ####[facility] [address] [place] [address] eGFRon 01-09-2023 GFR/1.73 sq M.predicted among non-blacks MDRD (S/P/Bld) [Vol rate/Area] 47 mL/min/1.73 m2 Low >=59 [facility] Comment on above: Order Comment: Order added by Discern Expert. Result Comment: [employer] [place] kidney disease could be indicated at eGFR's of less than 60 mL/min/1.73m2. Kidney failure is indicated at less than 15 mL/min/1.73m2. Performed By: #### 1 1504365, 5766541, 8540335, 4528720, 8734125, 4357082 ####[facility] [address] [place] [address] C Urineon 01-08-2023 Bacteria identified Cx Nom (U) Normal [facility] Comment on above: Performed By: #### 1 4573946, 3164306 ####[facility] [address] [place] [address] Capillary Glucose POCon 12-19 Glucose [Mass/Vol] 116 mg/dL High 55-99 [facility] Comment on above: Result Comment: Sandhya luo RN/ Performed By: #### 2 71506440 ####[facility] [address] [place] [address] Glucose [Mass/Vol] 84 mg/dL Normal 55-99 [facility] Comment on above: Result Comment: Sandhya luo RN/ Performed By: #### 2 36687766 ####[facility] [address] [place] [address] Glucose [Mass/Vol] 114 mg/dL High 55-99 [facility] Comment on above: Result Comment: Sandhya luo RN/ Performed By: #### 2 47830170 ####[facility] [address] [place] [address] Interdisciplinary Note - Miguelito e Manageron 01-08-2023 Interdisciplinary Note - Hat Presser Normal [facility] Comment on above: Result Comment: Elec tronically Signed By: Xiomara Solorio\Date and Time Signed: 01/08/23 13:06 EST Monitor Recordon 01-08-2023 Monitor Record [id number]# 1.00TIFF Normal [facility] Monitor Record [id number]# 1.00TIFF Normal [facility] Monitor Record [id number]# 1.00TIFF Normal [facility] Monitor Record [id number]# 1.00TIFF Normal [facility] NM Gastric Emptying Studyon 01-08-2023 NM Gastric Emptying Study Normal [facility] BMPon 01-07-2023 Anion gap [Moles/Vol] 11 mmol/L Normal 6-16 [facility] Comment on above: Performed By: #### 1 4365333, 9520344, 6586070, 6606717, 6214143, 5639640 ####[facility] [address] [place] [address] Calcium [Mass/Vol] 9.0 mg/dL Normal 8.9-11.1 [facility] Comment on above: Performed By: #### 1 5889688, 6028110, 9928930, 3095874, 2884372, 1032071 ####[facility] [address] [place] [address] Chloride [Moles/Vol] 104 mmol/L Normal 101-111 [facility] Comment on above: Performed By: #### 1 6422378, 1468189, 0315503, 8218423, 8068970, 2232366 ####[facility] [address] [place] [address] CO2 [Moles/Vol] 24 mmol/L Normal 21-31 [facility] Comment on above: Performed By: #### 1 5371505, 8877369, 4698851, 4685692, 7350072, 1874147 ####[facility] [address] [place] [address] Creatinine [Mass/Vol] 1.4 mg/dL High 0.5-1.3 [facility] Comment on above: Performed By: #### 1 7259894, 6094301, 3044896, 4815397, 2524408, 1373392 ####[facility] [address] [place] [address] Glucose [Mass/Vol] 201 mg/dL High 55-199 [facility] Comment on above: Result Comment: If t his glucose result represents a fasting glucose, interpretation should refer to the following reference range: 55-99 mg/dL Performed By: #### 1 3691161, 5253170, 5291605, 6801511, 7831514, 8108750 ####[facility] [address] [place] [address] Potassium [Moles/Vol] 3.2 mmol/L Low 3.5-5.3 [facility] Comment on above: Performed By: #### 1 8263442, 6329025, 6633393, 0065321, 3930550, 5934642 ####[facility] [address] [place] [address] Sodium [Moles/Vol] 136 mmol/L Normal 135-145 [facility] Comment on above: Performed By: #### 1 1793063, 0136670, 2364608, 5605083, 9910532, 2407936 ####[facility] [address] [place] [address] Urea nitrogen [Mass/Vol] 29 mg/dL High 5-21 [facility] Comment on above: Performed By: #### 1 8750208, 1703233, 5732544, 2962134, 8388313, 2725067 ####[facility] [address] [place] [address] Urea nitrogen/Creatinine [Mass ratio] 21 No Units High 10-20 [facility] Comment on above: Performed By: #### 1 6175226, 8012526, 8060736, 6054677, 4689659, 3847776 ####[facility] [address] [place] [address] CBC w/Indiceson 01-07-2023 Erythrocyte distribution width (RBC) [Ratio] 13.9 % Normal 10.9-14.2 [facility] Comment on above: Performed By: #### 1 9522500, 7741419, 2555269, 4877207, 4492431, 1670765 ####[facility] [address] [place] [address] Hematocrit (Bld) [Volume fraction] 43.9 % Normal 34.0-46.0 [facility] Comment on above: Performed By: #### 1 2728986, 3074401, 6796682, 0636938, 3623527, 7541304 ####[facility] [address] [place] [address] Hemoglobin (Bld) [Mass/Vol] 14.7 g/dL Normal 12.0-16.0 [facility] Comment on above: Performed By: #### 1 3265734, 4218005, 4158401, 2853133, 4713761, 7869791 ####[facility] [address] [place] [address] MCH (RBC) [Entitic mass] 30.0 pg Normal 27.0-34.0 [facility] Comment on above: Performed By: #### 1 5827117, 2541622, 6495186, 8381186, 6365752, 7718684 ####[facility] [address] [place] [address] MCHC (RBC) [Mass/Vol] 33.5 g/dL Normal 31.4-36.0 [facility] Comment on above: Performed By: #### 1 4115033, 1883821, 5082824, 6268859, 4900814, 9329761 ####[facility] [address] [place], [place] [address] MCV (RBC) [Entitic vol] 89.6 fL Normal 80.0-100.0 [facility] Comment on above: Performed By: #### 1 9989903, 7460168, 8232573, 3276155, 3080496, 2785873 ####[facility] [address]sl[address] [place] [address] Platelet mean volume (Bld) [Entitic vol] 7.3 fL Normal 6.4-10.8 [facility] Comment on above: Performed By: #### 1 9350722, 4606173, 7893827, 6274691, 1942941, 7722437 ####[facility] [address] [place] [address] Platelets (Bld) [#/Vol] 443.0 E9/L Normal 150.0-500.0 [facility] Comment on above: Performed By: #### 1 7228052, 8008546, 0010788, 3149578, 2070683, 5551422 ####[facility] [address] [place] [address] RBC (Bld) [#/Vol] 4.9 E12/L Normal 4.3-5.9 [facility] Comment on above: Performed By: #### 1 0529764, 3844910, 8509334, 7418456, 7615678, 6974404 ####[address] [address] WBC corrected for nucl RBC Auto (Bld) [#/Vol] 14.0 E9/L High 4.0-11.0 [facility] Comment on above: Performed By: #### 1 5792893, 0220758, 7692726, 8424495, 2905379, 1719542 ####[facility] [address] [place] [address] CTA Cheston 01-07-2023 CTA Chest Normal [facility] Capillary Glucose POCon 12-19 Glucose [Mass/Vol] 139 mg/dL High 55-99 [facility] Comment on above: Result Comment: Sandhya JOHNSTON Performed By: #### 2 29576995 ####[facility] [address] [place] [address] Glucose [Mass/Vol] 128 mg/dL High 55-99 [facility] Comment on above: Result Comment: Sandhya JOHNSTON Performed By: #### 2 10908250 ####[facility] [address] [place] [address] Glucose [Mass/Vol] 166 mg/dL High 55-99 [facility] Comment on above: Result Comment: Sandhya luo RN/MD Performed By: #### 2 74723507 ####[facility] [address] [place] [address] Glucose [Mass/Vol] 204 mg/dL High 55-99 [facility] Comment on above: Performed By: #### 2 89798415 ####[facility] [address] [place] [address] ED Clinical Summaryon 2022 ED Clinical Summary Normal Alberto diamond [facility] ED Note-Nursingon 01-07-2023 ED Note-Nursing This nurse spoke nikko Rileyy form [employer] to let them know that this patient will be staying for admittance of continued care. Normal [facility] ED Note-Physicianon 01-08-20 ED Note-Physician Normal [facility] Comment on above: Result Comment: Elec tronically Signed By: Missy Urena PA-C\.br\Date and Time Signed: 01/06/23 23:42 EST\.br\Electronically Co-Signed By: Chaitanya Valdes DO\.br\Date and Time Co-Signed: 01/07/23 18:52 EST ED Patient Education Noteon 01-07-2023 ED Patient Education Note Normal [facility] ED Patient Summaryon 023 ED Patient Summary Normal [facility] Hep Func Panelon 01-07-2023 Bilirubin.indirect [Mass or moles/Vol] UTC Abnormal 0.1-0.9 [facility] Comment on above: Result Comment: Resu lt verified by Discern Rule. Performed result UTC (Unable to Calculate) was sent as an Alpha code due the inability to calculate a valid numeric value. Performed By: #### 1 4052872, 6615969, 7006232, 5060902, 6254948, 7233006 ####[facility] [address] [place] [address] Albumin [Mass/Vol] 3.6 g/dL Normal 3.3-5.0 [facility] Comment on above: Performed By: #### 1 1927039, 5572772, 7925105, 4771862, 9224428, 9453977 ####[facility] [address] [place] [address] Albumin/Globulin (S) [Mass conc ratio] 1.0 Low 1.1-2.2 [facility] Comment on above: Performed By: #### 1 8729830, 0192569, 9328748, 4979939, 8432789, 8508687 ####[facility] [address] [place] [address] ALP [Catalytic activity/Vol] 153 Int._Unit/L High 21-98 [facility] Comment on above: Performed By: #### 1 8927315, 1548887, 4805675, 2377145, 0714698, 6032162 ####[facility] [address] [place] [address] ALT No additional P-5'-P [Catalytic activity/Vol] 40 Int._Unit/L Normal 6-46 [facility] Comment on above: Performed By: #### 1 0256512, 2141084, 9439067, 4521231, 8515042, 1019267 ####[facility] [address] [place] [address] AST [Catalytic activity/Vol] 25 Int._Unit/L Normal 5-43 [facility] Comment on above: Performed By: #### 1 2548880, 2102041, 8058205, 4721269, 3357241, 2813561 ####[facility] [address] [place] [address] Bilirubin [Mass/Vol] 0.6 mg/dL Normal 0.0-1.1 [facility] Comment on above: Performed By: #### 1 3909478, 2167178, 0405852, 8199626, 4979818, 1198627 ####[facility] [address] [place] [address] Globulin (S) [Mass/Vol] 3.8 g/dL Normal 1.4-4.0 [facility] Comment on above: Performed By: #### 1 7414429, 5935008, 8239527, 3098712, 4589716, 0418243 ####[facility] [address] [place] [address] Protein [Mass/Vol] 7.4 g/dL Normal 6.0-7.8 [facility] Comment on above: Performed By: #### 1 7864287, 6238173, 7282293, 7569732, 7326453, 5603045 ####[facility] [address] [place] [address] Bilirubin.direct [Mass/Vol] mg/dL Normal 0.1-0.4 [facility] Comment on above: Performed By: #### 1 1586431, 0336101, 1080127, 8183065, 4299162, 1901548 ####[facility] [address] [place] [address] Interdisciplinary Note - Miguelito e Manageron 01-07-2023 Interdisciplinary Note - Hat Presser [facility] Comment on above: Result Comment: Elec tronically Signed By: Chanda Adames\.br\Date and Time Signed: 01/07/23 13:23 EST Magnesiumon 01-07-2023 Magnesium [Mass/Vol] 1.9 mg/dL Normal 1.3-2.4 [facility] Comment on above: Performed By: #### 1 0781971, 3482373, 7864725, 8047182, 3490095, 2462464 ####[facility] [address] [place] [address] Message from Medicareon 12-19 Message from Medicare [id number]# 1.00TIFF Normal [facility] Monitor Recordon 01-07-2023 Monitor Record [id number]# 1.00TIFF Normal [facility] Monitor Record [id number]# 1.00TIFF Normal [facility] Monitor Record [id number]# 1.00TIFF Normal [facility] Monitor Record [id number]# 1.00TIFF Normal [facility] Progress Note-Physicianon Progress Note-Physician Normal [facility] Comment on above: Result Comment: Elec tronically Signed By: Marybel Sofia\.br\Date and Time Signed: 01/07/23 17:12 EST\.br\Electronically Co-Signed By: JALEEL VIVEROS, Michelle\.br\Date and Time Co-Signed: 01/07/23 19:16 EST RAD - Preliminary Cat Scan R eporton 01-07-2023 RAD - Preliminary Cat Scan Report [id number]# 1.00TIFF Normal [facility] Troponinon 01-07-2023 Troponin I.cardiac [Mass/Vol] 31.20 pg/mL High 10.10-27.10 [facility] Comment on above: Result Comment: The 95% CI (Confidence Interval) PPV (Positive Predictive Value) for myocardial infarction in females is 38 pg/mL, in males 51 pg/mL. The results should be used in conjunction with clinical conditions of myocardial infarction.(Access High Sensitivity Troponin I Instructions For Use, DSTLD, September 2017) Performed By: #### 1 4856824, 6881458, 2815640, 0739211, 9304603, 3599954 ####[facility] [address] [place] [address] Troponin 3 Hr.on 01-07-2023 Troponin I.cardiac [Mass/Vol] 34.60 pg/mL High 10.10-27.10 [facility] Comment on above: Result Comment: The 95% CI (Confidence Interval) PPV (Positive Predictive Value) for myocardial infarction in females is 38 pg/mL, in males 51 pg/mL. The results should be used in conjunction with clinical conditions of myocardial infarction.(Access High Sensitivity Troponin I Instructions For Use, DSTLD, September 2017) Performed By: #### 1 5754965 ####Newell Dorian [address] [address] Troponin 6 Hr.on 01-07-2023 Troponin I.cardiac [Mass/Vol] 33.90 pg/mL High 10.10-27.10 [facility] Comment on above: Result Comment: The 95% CI (Confidence Interval) PPV (Positive Predictive Value) for myocardial infarction in females is 38 pg/mL, in males 51 pg/mL. The results should be used in conjunction with clinical conditions of myocardial infarction.(Access High Sensitivity Troponin I Instructions For Use, DSTLD, September 2017) Performed By: #### 1 6015958 ####[address] [address] Troponin 9 Hr.on 01-07-2023 Troponin I.cardiac [Mass/Vol] 36.60 pg/mL High 10.10-27.10 [facility] Comment on above: Result Comment: The 95% CI (Confidence Interval) PPV (Positive Predictive Value) for myocardial infarction in females is 38 pg/mL, in males 51 pg/mL. The results should be used in conjunction with clinical conditions of myocardial infarction.(Access High Sensitivity Troponin I Instructions For Use, DSTLD, September 2017) Performed By: #### 1 5293392 ####[address] [address] UA With Cult Reflexon 2022 Bilirubin Ql (U) Negative Normal Negative [facility] Comment on above: Order Comment: Urina ry Catheter Insertion triggered Urinalysis With Culture Reflex order by discern. Performed By: #### 1 5781350 ####[address] [address] Clarity (U) CLEAR Normal Clear [facility] Comment on above: Order Comment: Urina ry Catheter Insertion triggered Urinalysis With Culture Reflex order by discern. Performed By: #### 1 3342130 ####[address] [address] Color (U) YELLOW Normal Yellow [facility] Comment on above: Order Comment: Urina ry Catheter Insertion triggered Urinalysis With Culture Reflex order by discern. Performed By: #### 1 0089113 ####[address] [place] [address] Epithelial cells.squamous LM.HPF (Urine sed) [#/Area] 0-2 Normal 0-2 [facility] Comment on above: Order Comment: Urina ry Catheter Insertion triggered Urinalysis With Culture Reflex order by discern. Performed By: #### 1 4090887 ####[facility] [address] [place] [address] Glucose Test strip (U) [Mass/Vol] TRACE Abnormal Negative [facility] Comment on above: Order Comment: Urina ry Catheter Insertion triggered Urinalysis With Culture Reflex order by discern. Performed By: #### 1 2392141 ####[address] [address] Hemoglobin Ql (U) 2+ Abnormal Negative [facility] Comment on above: Order Comment: Urina ry Catheter Insertion triggered Urinalysis With Culture Reflex order by discern. Performed By: #### 1 4841322 ####[facility] [address] [place] [address] Ketones (U) [Mass/Vol] 1+ Abnormal Negative [facility] Comment on above: Order Comment: Urina ry Catheter Insertion triggered Urinalysis With Culture Reflex order by discern. Performed By: #### 1 3919342 ####[facility] [address] [place] [address] [place].plasma/[place]. RBC (Bld) [Mass ratio] 4-20 Normal 0-3 [facility] Comment on above: Order Comment: Urina ry Catheter Insertion triggered Urinalysis With Culture Reflex order by discern. Performed By: #### 1 7119462 ####[facility] [address]ed[address] [place] [address] Nitrite Ql (U) Negative Normal Negative [facility] Comment on above: Order Comment: Urina ry Catheter Insertion triggered Urinalysis With Culture Reflex order by discern. Performed By: #### 1 9329232 ####[address] [address] pH (U) 6.0 [pH] Invalid Interpretation Code 5.0-9.0 [facility] Comment on above: Order Comment: Urina ry Catheter Insertion triggered Urinalysis With Culture Reflex order by discern. Performed By: #### 1 8767136 ####[address] [address] Protein (U) [Mass/Vol] 3+ Abnormal Negative [facility] Comment on above: Order Comment: Urina ry Catheter Insertion triggered Urinalysis With Culture Reflex order by discern. Performed By: #### 1 9186664 ####[place] [address] Specific gravity (U) [Rel density] 1.015 Invalid Interpretation Code 1.005-1.030 [facility] Comment on above: Order Comment: Urina ry Catheter Insertion triggered Urinalysis With Culture Reflex order by discern. Performed By: #### 1 3656156 ####[place] [address] Type of Urine collection method Meade Normal [facility] Comment on above: Order Comment: Urina ry Catheter Insertion triggered Urinalysis With Culture Reflex order by discern. Performed By: #### 1 [id number] ####[place] [id number] Urobilinogen Qn (U) 0.2 {Rikki'U}/dL Normal 0.0-1.0 [facility] Comment on above: Order Comment: Urina ry Catheter Insertion triggered Urinalysis With Culture Reflex order by discern. Performed By: #### 1 [id number] ####[place] [address]957 WBC Auto Ql (U) Negative Normal Negative [facility] Comment on above: Order Comment: Urina ry Catheter Insertion triggered Urinalysis With Culture Reflex order by discern. Performed By: #### 1 [id number] ####[place] [address]957 WBC LM.HPF (Urine sed) [#/Area] 0-5 Normal 0-5 [facility] Comment on above: Order Comment: Urina ry Catheter Insertion triggered Urinalysis With Culture Reflex order by discern. Performed By: #### 1 [id number] ####[facility] [address] [place] [address] eGFRon 01-07-2023 GFR/1.73 sq M.predicted among non-blacks MDRD (S/P/Bld) [Vol rate/Area] 43 mL/min/1.73 m2 Low >=59 [facility] Comment on above: Order Comment: Order added by Discern Expert. Result Comment: [employer] gar[place] kidney disease could be indicated at eGFR's of less than 60 mL/min/1.73m2. Kidney failure is indicated at less than 15 mL/min/1.73m2. Performed By: #### 1 1160372, 8325585, 5113961, 7368380, 0462590, 8168606 ####[facility] [address] [place] [address] Auto Diffon 01-06-2023 Basophils/100 WBC (Bld) 0.4 % Normal 0.0-2.0 [facility] Comment on above: Order Comment: Order Added by Michael Expert. Performed By: #### 2 685283, 97529228, 4195968, 11840860, 6088347, 8496972, 2189893, 9484085 ####[facility] [address] [place] [address] Basophils/Leukocytes Auto (Bld) [Pure # fraction] 0.1 E9/L Normal 0.0-0.2 [facility] Comment on above: Order Comment: Order Added by Discern Expert. Performed By: #### 2 855159, 33162997, 6388800, 71917532, 6546262, 9310084, 8289967, 3857972 ####[facility] [address] [place] [address] Eosinophils/100 WBC (Bld) 0.1 % Normal 0.0-8.0 [facility] Comment on above: Order Comment: Order Added by Michael Expert. Performed By: #### 2 141497, 51328398, 7847091, 79393263, 1467049, 8743237, 3712892, 5076967 ####[place] [address] [place] [address] Eosinophils/Leukocytes Auto (Bld) [Pure # fraction] 0.0 E9/L Normal 0.0-0.5 [facility] Comment on above: Order Comment: Order Added by Discern Expert. Performed By: #### 2 466298, 34295553, 2609136, 42047479, 7948758, 3291108, 0525399, 8483806 ####[address] [address] Lymphocytes/100 WBC (Bld) 13.4 % Low 14.0-50.0 [facility] Comment on above: Order Comment: Order Added by Discern Expert. Performed By: #### 2 317348, 88367072, 5617237, 59765541, 8825803, 2676681, 9290339, 1631208 ####[address] [address] Lymphocytes/Leukocytes Auto (Bld) [Pure # fraction] 2.2 E9/L Normal 1.0-4.0 [facility] Comment on above: Order Comment: Order Added by Discern Expert. Performed By: #### 2 610506, 88905183, 4684213, 14383625, 6543490, 1331019, 5238952, 6045826 ####[address] [address] Monocytes/100 WBC (Bld) 4.8 % Normal 4.0-14.0 [facility] Comment on above: Order Comment: Order Added by Discern Expert. Performed By: #### 2 255654, 77997389, 2739128, 06675671, 4267887, 4878356, 0076819, 3110306 ####[address] [address] Monocytes/Leukocytes Auto (Bld) [Pure # fraction] 0.8 E9/L Normal 0.2-1.0 [facility] Comment on above: Order Comment: Order Added by Discern Expert. Performed By: #### 2 797255, 12560519, 4142828, 85720636, 0564456, 2625113, 9792536, 2354813 ####[facility] [address] [place] [address] Neutrophils/100 WBC (Bld) 81.3 % High 36.0-75.0 [facility] Comment on above: Order Comment: Order Added by Discern Expert. Performed By: #### 2 340410, 52298073, 2381643, 28932973, 9550407, 4724920, 8835752, 6166721 ####[facility] [address] [place] [address] Neutrophils/Leukocytes Auto (Bld) [Pure # fraction] 13.1 E9/L High 2.0-7.5 [facility] Comment on above: Order Comment: Order Added by Discern Expert. Performed By: #### 2 781727, 37467731, 2399364, 78193519, 7581272, 7465488, 9293478, 8393422 ####[address] [address] BNPon 01-06-2023 Natriuretic peptide B (Bld) [Mass/Vol] 265 pg/mL High 5-80 [facility] Comment on above: Performed By: #### 1 5574350 ####[address] [address] Blood Gas Art, with Lytes, G becka, [place] 01-06-2023 a/A Ratio Art 81.10 % Normal >=0.80 [facility] Comment on above: Performed By: #### 4 59441887 ####[facility] [address] [place] [address] AaDO2 Art 21.1 mmHg High 5.0-15.0 [facility] Comment on above: Performed By: #### 4 69125699 ####[place] [address] [place] [address] Allens Test Positive Normal [facility] Comment on above: Performed By: #### 4 10036067 ####[facility] [address] [place] [address] Base Excess Arterial -0.6 mmol/L Low >=2.8 [facility] Comment on above: Performed By: #### 4 44086768 ####[facility] [address] [place] [address] cCa2+ Art 4.67 mg/dL Normal 4.40-5.30 [facility] Comment on above: Performed By: #### 4 50124072 ####[place] [address] [place] [address] cCl- Art 103.0 mmol/L Normal 101.0-111.0 [facility] Comment on above: Performed By: #### 4 29656143 ####[place] [address] [place] [address] cGlu Art 202 mg/dL High 55-99 [facility] Comment on above: Performed By: #### 4 12357095 ####[place] [address] [place] [address] cK+ Art 3.2 mmol/L Low 3.5-5.3 [facility] Comment on above: Performed By: #### 4 91617465 ####[place] [address] [place] [address] cLac Art .9 mmol/L Normal .5-2.2 [facility] Comment on above: Performed By: #### 4 91652661 ####[facility] [address] [place] [address] sales associate+ Art 138.0 mmol/L Normal 135.0-145.0 [facility] Comment on above: Performed By: #### 4 36913459 ####[facility] [address] [place] [address] Drawn by WMP Invalid Interpretation Code [facility] Comment on above: Performed By: #### 4 75471948 ####[place] [address] [place] [address] FCOHb Art 1.1 % Low 1.5-4.9 [facility] Comment on above: Result Comment: Refe rence rangeNonsmoker <1.5%Smoker <5.0%Heavy Smoker <9.0% Performed By: #### 4 35348476 ####[facility] [address] [place] [address] FIO2 BG 21 Invalid Interpretation Code [facility] Comment on above: Performed By: #### 4 54523622 ####[facility] [address] [place] [address] FMetHb Art 0.2 % Normal 0.0-1.9 [facility] Comment on above: Performed By: #### 4 20729825 ####[facility] [address] [place] [address] FO2Hb Art 97.5 % Normal 92.0-100.0 [facility] Comment on above: Performed By: #### 4 87858128 ####[facility] [address] [place] [address] HCO3 (Bld) [Moles/Vol] 23.9 mmol/L Normal 22.0-26.0 [facility] Comment on above: Performed By: #### 4 49196667 ####[facility] [address] [place] [address] Hemoglobin (Bld) [Mass/Vol] 14.6 g/dL Normal 12.0-16.0 [facility] Comment on above: Performed By: #### 4 85299608 ####[facility] [address] [place] [address] Oxygen saturation in Blood 98.8 % Normal 95.0-100.0 [facility] Comment on above: Performed By: #### 4 57875683 ####[facility] [address] [place] [address] P CO2 Arterial 30.6 mmHg Low 35.0-45.0 [facility] Comment on above: Performed By: #### 4 07697064 ####[facility] [address] [place] [address] P O2 Arterial 90.7 mmHg Normal 80.0-100.0 [facility] Comment on above: Performed By: #### 4 36472678 ####[facility] [address] [place] [address] pH Arterial 7.467 High 7.350-7.450 [facility] Comment on above: Performed By: #### 4 47968797 ####[address] [address] Sample Site L Radial Normal [facility] Comment on above: Performed By: #### 4 55737058 ####[address] [address] Sample Type Arterial Draw Normal [facility] Comment on above: Performed By: #### 4 39298153 ####[address] [address] CBC w/ Auto Diffon 3 Erythrocyte distribution width (RBC) [Ratio] 13.9 % Normal 10.9-14.2 [facility] Comment on above: Performed By: #### 2 972933, 68528297, 4441479, 85133725, 0864898, 7218335, 0885278, 4820004 ####[place] [address] [place] [address] Hematocrit (Bld) [Volume fraction] 42.8 % Normal 34.0-46.0 [facility] Comment on above: Performed By: #### 2 833620, 78683206, 8211633, 85025785, 6161132, 1014752, 2314685, 3195122 ####[facility] [address] [place] [address] Hemoglobin (Bld) [Mass/Vol] 14.4 g/dL Normal 12.0-16.0 [facility] Comment on above: Performed By: #### 2 149109, 07842826, 0678856, 81240698, 9818620, 7761218, 1381333, 8733516 ####[facility] [address] [place] [address] MCH (RBC) [Entitic mass] 29.9 pg Normal 27.0-34.0 [facility] Comment on above: Performed By: #### 2 476493, 98792295, 4449156, 91243113, 2408219, 1331738, 2995507, 0163006 ####[address] [address] MCHC (RBC) [Mass/Vol] 33.6 g/dL Normal 31.4-36.0 [facility] Comment on above: Performed By: #### 2 740384, 70568472, 7362120, 86514573, 5432074, 6480763, 0444046, 1252270 ####[address] [address] MCV (RBC) [Entitic vol] 88.9 fL Normal 80.0-100.0 [facility] Comment on above: Performed By: #### 2 675964, 17431005, 5303071, 44439378, 2814288, 9931307, 8529237, 4354953 ####[address] [address] Platelet mean volume (Bld) [Entitic vol] 6.8 fL Normal 6.4-10.8 [facility] Comment on above: Performed By: #### 2 589680, 75588766, 0945128, 26144519, 4859112, 5968997, 7534087, 9610859 ####[address] [address] Platelets (Bld) [#/Vol] 425.0 E9/L Normal 150.0-500.0 [facility] Comment on above: Performed By: #### 2 341269, 77570238, 2757623, 73319190, 6612956, 9697686, 3814332, 4016014 ####[place] [address] [place] [address] RBC (Bld) [#/Vol] 4.8 E12/L Normal 4.3-5.9 [facility] Comment on above: Performed By: #### 2 530785, 70983216, 7953525, 88363892, 0166127, 8341590, 9946320, 8023464 ####[address] [address] WBC corrected for nucl RBC Auto (Bld) [#/Vol] 16.1 E9/L High 4.0-11.0 [facility] Comment on above: Result Comment: Slid e reviewed by BR. Performed By: #### 2 284079, 01329215, 1926437, 60577186, 5267285, 2793139, 7499716, 9233914 ####[address] [address] CMPon 01-06-2023 Albumin [Mass/Vol] 4.3 g/dL Normal 3.3-5.0 [facility] Comment on above: Performed By: #### 2 289445, 41625876, 4907967, 78162461, 8440912, 0251508, 5803518, 6597961 ####[address] [address] Albumin/Globulin (S) [Mass conc ratio] 0.9 Low 1.1-2.2 [facility] Comment on above: Performed By: #### 2 959333, 85692649, 2465617, 81727261, 8947488, 6068567, 8745039, 8356785 ####[address] [address] ALP [Catalytic activity/Vol] 188 Int._Unit/L High 21-98 [facility] Comment on above: Performed By: #### 2 567581, 94599371, 5348237, 41614681, 8687345, 2841618, 9985616, 0141765 ####[address] [place] [address] ALT No additional P-5'-P [Catalytic activity/Vol] 67 Int._Unit/L High 6-46 [facility] Comment on above: Performed By: #### 2 727471, 13814916, 4503225, 35865308, 0318879, 8269525, 0648616, 0451262 ####[facility] [address] [place] [address] AST [Catalytic activity/Vol] 63 Int._Unit/L High 5-43 [facility] Comment on above: Performed By: #### 2 410546, 02945997, 4105131, 08196788, 0431511, 2129093, 7792774, 9463969 ####[facility] [address] [place] [address] Bilirubin [Mass/Vol] 0.8 mg/dL Normal 0.0-1.1 [facility] Comment on above: Performed By: #### 2 419764, 07128672, 9290684, 03662253, 4958649, 4501824, 6621325, 8397997 ####[facility] [address] [place] [address] Creatinine [Mass/Vol] 1.3 mg/dL Normal 0.5-1.3 [facility] Comment on above: Performed By: #### 2 845198, 96107278, 2509833, 61100291, 3691824, 8377573, 3557854, 8836997 ####[facility] [address] [place] [address] Globulin (S) [Mass/Vol] 4.7 g/dL High 1.4-4.0 [facility] Comment on above: Performed By: #### 2 274918, 07021567, 4717339, 09316261, 9190818, 8827580, 9320363, 0726706 ####[facility] [address] [place] [address] Protein [Mass/Vol] 9.0 g/dL High 6.0-7.8 [facility] Comment on above: Performed By: #### 2 048182, 34496105, 8827673, 06257546, 3676159, 5873890, 7855243, 0136167 ####[facility] [address] [place] [address] Urea nitrogen [Mass/Vol] 30 mg/dL High 5-21 [facility] Comment on above: Performed By: #### 2 202184, 35784985, 3263728, 49475430, 8435311, 6844186, 5774183, 1006486 ####[facility] [address] [place] [address] Urea nitrogen/Creatinine [Mass ratio] 23 No Units High 10-20 [facility] Comment on above: Performed By: #### 2 208963, 89000479, 3094949, 12632993, 8540716, 5656902, 1287124, 6073878 ####[facility] [address] [place] [address] Anion gap [Moles/Vol] 18 mmol/L High 6-16 [facility] Comment on above: Performed By: #### 2 023903, 33214068, 7220654, 42001633, 6571349, 9963766, 8929932, 3972900 ####[facility] [address] [place] [address] Calcium [Mass/Vol] 10.1 mg/dL Normal 8.9-11.1 [facility] Comment on above: Performed By: #### 2 539423, 72258922, 2448483, 32028513, 5587456, 9040545, 1404808, 3682787 ####[facility] [address] [place] [address] Chloride [Moles/Vol] 97 mmol/L Low 101-111 [facility] Comment on above: Performed By: #### 2 408611, 88906248, 5976803, 21563411, 2189449, 4437254, 0329917, 3302577 ####[facility] [address] [place] [address] CO2 [Moles/Vol] 22 mmol/L Normal 21-31 [facility] Comment on above: Performed By: #### 2 889995, 72036776, 8978142, 43433402, 3412844, 1586111, 2342102, 0571673 ####[facility] [address] [place] [address] Glucose [Mass/Vol] 173 mg/dL Normal 55-199 [facility] Comment on above: Result Comment: If t his glucose result represents a fasting glucose, interpretation should refer to the following reference range: 55-99 mg/dL Performed By: #### 2 351342, 46333669, 6401735, 49881525, 6223273, 7464128, 3916039, 5097923 ####[facility] [address] [place] [address] Potassium [Moles/Vol] 3.5 mmol/L Normal 3.5-5.3 [facility] Comment on above: Performed By: #### 2 873147, 02678114, 2843515, 02730890, 0780949, 4293851, 9986633, 0016111 ####[facility] [address] [place] [address] Sodium [Moles/Vol] 133 mmol/L Low 135-145 [facility] Comment on above: Performed By: #### 2 663004, 20396972, 1272356, 88707198, 5308641, 7660166, 2297745, 8377261 ####[facility] [address] [place] [address] CT Abdomen/Pelvis w/ Contras ton 01-06-2023 CT Abdomen/Pelvis w/ Contrast Normal [facility] Capillary Glucose POCon 12-19 Glucose [Mass/Vol] 178 mg/dL High 55-99 [facility] Comment on above: Performed By: #### 2 79031397 ####[facility] [address] [place] [address] Glucose [Mass/Vol] 179 mg/dL High 55-99 [facility] Comment on above: Result Comment: Sandhya JOHNSTON Performed By: #### 2 63839054 ####[facility] [address] [place] [address] Glucose [Mass/Vol] 161 mg/dL High 55-99 [facility] Comment on above: Result Comment: Sandhya JOHNSTON Performed By: #### 2 57692023 ####[facility] [address] [place] [address] Consent for Treatmenton 12-19 Consent for Treatment [id number] 110 [id number]# 1.00TIFF Normal [facility] Consent for Treatment [id number] 110 [id number]# 1.00TIFF Normal [facility] D-Dimeron 01-06-2023 Fibrin D-dimer FEU (PPP) [Mass/Vol] 2680 [id number] Abnormal 215-500 [facility] Comment on above: Result Comment: Resu lts Called To Dr Valdes /DUNIA By Liss Chauhan And Read Back For Confirmation On 01/06/2023 21:03:59 ESTResults Verified By Repeat AnalysisThis assay is intended for use as an aid in the diagnosis of DVT or PE. These conditions cannot be excluded with certainty solely on the basis of a D-dimer concentration being within the reference rangeThis D-Dimer assay may be used in conjunction with a non-high clinical pretest probability assessment to exclude deep-vein thrombosis(DVT). For exclusion of venous thrombosis or pulmonary embolism the analyte D-Dimer should not be used as an aid in patients with:Therapeutic dose anticoagulant therapy for >24 hoursFibrinolytic therapy within previous 7 daysTrauma or surgery within previous 4 weeksDisseminated malignaciesAortic aneurysmSepsis, severe infections, pneumonia, severe skin infectionsLiver cirrhosisPregnancy Performed By: #### 2 945537, 4485480, 82126329, 43650542 ####[facility] [address] [place] [address] Free T4on 01-06-2023 Free T4 [Mass/Vol] 1.23 ng/dL Normal 0.58-1.64 [facility] Comment on above: Order Comment: Free T4 added by Discern Rule due to a TSH result of <0.34 or >5.60. Performed By: #### 2 219285, 0746306, 56265454, 51212818 ####[facility] [address] [place] [address] Lactic Acidon 01-06-2023 Lactate [Mass/Vol] 1.6 mmol/L Normal 0.5-2.2 [facility] Comment on above: Performed By: #### 2 776614, 17320178, 3761375, 81671928, 7796486, 2735877, 7066916, 9298771 ####[facility] [address] [place] [address] Lipase Levelon 01-06-2023 Lipase [Catalytic activity/Vol] 48 U/L Normal 13-58 [facility] Comment on above: Performed By: #### 2 310372, 63681965, 9375663, 61874670, 2032436, 4067158, 1032169, 3283012 ####[facility] [address] [place] [address] Magnesiumon 01-06-2023 Magnesium [Mass/Vol] 2.0 mg/dL Normal 1.3-2.4 [facility] Comment on above: Performed By: #### 2 606764, 59882180, 5517653, 16091285, 0261491, 3827640, 4860443, 1161670 ####[facility] [address] [place] [address] Medication Listson Medication Lists [id number] 0 [id number]# 1.00TIFF Normal [facility] Monitor Recordon 01-06-2023 Monitor Record [id number] 1 [id number]# 1.00TIFF Normal [facility] Monitor Record [id number] 1 [id number]# 1.00TIFF Normal [facility] Monitor Record [id number] 1 [id number]# 1.00TIFF Normal [facility] Monitor Record [id number] 1 [id number]# 1.00TIFF Normal [facility] Monitor Record [id number] 1 [id number]# 1.00TIFF Normal [facility] Monitor Record [id number] 1 [id number]# 1.00TIFF Normal [facility] Recordson 01-06 [facility] Records [id number] 10 [id number]# 1.00TIFF Normal [facility] PT & PTTon 01-06-2023 aPTT Coag (PPP) [Time] 22.3 second(s) Low 25.1-36.5 [facility] Comment on above: Result Comment: Para meter 15 days - 4 weeks 1 - 5 months 6 - 11 months 1 - 5 years 6 - 10 years 11 - 17 years PTT Mean: 35.4 (27.6-45.6) Mean: 33.5 (24.8-40.7) Mean: 32.4 (25.1-40.7) Mean: 31.6 (24.0-39.2) Mean: 31.6 (26.9-38.7) Mean: 31.0 (24.6-38.4) Pediatric Reference ranges were obtained from a study by Clarence Anguiano et al. prepared from 1437 samples obtained at 7 different centers using the same coagulation reagent and instrumentation as [facility]. Currently there are no coagulation studies available worldwide for children to 14 days, and no normal ranges. Heparin therapeutic range (represented by Anti-Factor Xa activity of 0.2 - 0.4 U/mL) corresponds to PTT of 56.6 - 109.0 sec. Performed By: #### 2 603346, 2001182, 62996537, 71320573 ####[facility] [address] [place] [address] INR Coag (PPP) [Relative time] 1.2 {INR} Invalid Interpretation Code [facility] Comment on above: Result Comment: INR results are specifically intended to assess patients stabilized on long-term Anticoagulation therapy suggested INR?s ?Less Intensive Anticoagulation? 2.0 ? 3.0Conventional Range 3.0 ? 4.5 Performed By: #### 2 052305, 6241309, 82827206, 02796882 ####[facility] [address] [place] [address] PT Coag (PPP) [Time] 12.9 second(s) High 9.4-12.5 [facility] Comment on above: Result Comment: 15 d ays - 4 weeks 1 - 5 months 6 -11 months 1 ? 5 years 6 ? 10 years 11 -17 years Mean: 11.2 (9.5 ? 12.6) Mean: 11.0 (9.7 ? 12.8) Mean: 11.0 (9.8 ? 13.0) Mean: 11.3 (9.9 ? 13.4) Mean: 11.7 (10.0 ? 14.6) Mean: 11.8 (10.0 - 14.1) Pediatric Reference ranges were obtained from a study by Clarence Anguiano et al. prepared from 1437 samples obtained at 7 different centers using the same coagulation reagent and instrumentation as [facility]. Currently there are no coagulation studies available worldwide for children to 14 days, and no normal ranges. Performed By: #### 2 062677, 0768858, 24807974, 52070705 ####[facility] [address] [place] [address] Pre-Arrival Noteon 3 Pre-Arrival Note Normal [facility] Rapid COVID Antigen ([facility])on 01-06-2023 Rapid COV Int NEG Ctl Pass Normal [facility] Comment on above: Performed By: #### 2 [id number] ####[facility] [address] [place] [address] Rapid COV Int POS Ctl Pass Normal [facility] Comment on above: Performed By: #### 2 [id number] ####[facility] [address] [place] [address] SARS-CoV+SARS-CoV-2 (COVID-19) Ag IA.rapid Ql (Resp) Not detected Normal Not Detected [facility] Comment on above: Result Comment: The [employer] Veritor? System for Rapid Detection of SARS-CoV-2 is a chromatographic digital immunoassay intended for the direct and qualitative detection of SARS-CoV-2 nucleocapsid antigens in nasal swabs from individuals who are suspected of COVID-19 by their healthcare provider within the first five days of the onset of symptoms. Negative results should be treated as presumptive, do not rule out SARS-CoV-2 infection and should not be used as the sole basis for treatment or patient management decisions, including infection control decisions. Negative results should be considered in the context of a patient?s recent exposures, history and the presence of clinical signs and symptoms consistent with COVID-19, and confirmed with a molecular assay, if necessary, for patient management. For in vitro diagnostic use. In the [place], only for use under an Emergency Use Authorization. In the [place], this test has not been FDA cleared or approved; this test has been authorized by FDA under an EUA for use by authorized laboratories; use by laboratories certified under the CLIA, 42 U.S.C. ?263a, that meet requirements to perform moderate, high, or waived complexity tests and at the Point of Care (POC), i.e., in patient care settings operating under a CLIA Certificate of Waiver, Certificate of Compliance, or Certificate of Accreditation.This test has been authorized only for the detection of proteins from SARS-CoV-2, not for any other viruses or pathogens; and, in the [place], this test is only authorized for the duration of the declaration that circumstances exist justifying the authorization of emergency use of in vitro diagnostics for detection and/or diagnosis of the virus that causes COVID-19 under Section 564(b)(1) of the Act, 21 U.S.C. ? 360bbb-3(b)(1), unless the authorization is terminated or revoked sooner. Performed By: #### 2 [id number] ####[facility] [address] [place] [address] TSH With T4fr Reflexon 01-06 TSH Qn 5.74 m[IU]/L High 0.34-5.60 [facility] Comment on above: Performed By: #### 2 090261, 4157371, 32515732, 23327165 ####[facility] [address] [place] [address] Troponin 0 Hr.on 01-06-2023 Troponin I.cardiac [Mass/Vol] 13.80 pg/mL Normal 10.10-27.10 [facility] Comment on above: Result Comment: The 95% CI (Confidence Interval) PPV (Positive Predictive Value) for myocardial infarction in females is 38 pg/mL, in males 51 pg/mL. The results should be used in conjunction with clinical conditions of myocardial infarction.(Access High Sensitivity Troponin I Instructions For Use, DSTLD, September 2017) Performed By: #### 2 348288, 90942575, 5348310, 57286296, 7172103, 3071898, 2374010, 8471962 ####[facility] [address] [place] [address] UA With Cult Reflexon 2022 Bacteria LM Ql (Urine sed) TRACE Normal Trace [facility] Comment on above: Performed By: #### 1 7815781, 5129886 ####[address] [address] Bilirubin Ql (U) Negative Normal Negative [facility] Comment on above: Performed By: #### 1 5288838, 5680729 ####[facility] [address] [place] [address] Clarity (U) SL CLOUDY Abnormal Clear [facility] Comment on above: Performed By: #### 1 5312733, 8137007 ####[address] [address] Color (U) YELLOW Normal Yellow [facility] Comment on above: Performed By: #### 1 3289304, 6884054 ####[address] [address] Crystals LM Ql (Urine sed) Present Normal [facility] Comment on above: Performed By: #### 1 0634180, 6363036 ####[address] [address] Epithelial cells.squamous LM.HPF (Urine sed) [#/Area] 0-2 Normal 0-2 [facility] Comment on above: Performed By: #### 1 2665292, 1191351 ####[address] [address] Glucose Test strip (U) [Mass/Vol] 1+ Abnormal Negative [facility] Comment on above: Performed By: #### 1 9771901, 5068965 ####[address] [address] Hemoglobin Ql (U) 2+ Abnormal Negative [facility] Comment on above: Performed By: #### 1 8471275, 6091156 ####[address] [address] Ketones (U) [Mass/Vol] TRACE Abnormal Negative [facility] Comment on above: Performed By: #### 1 1366177, 9236896 ####[address] [address] [place].plasma/[place]. RBC (Bld) [Mass ratio] 4-20 Normal 0-3 [facility] Comment on above: Performed By: #### 1 9083630, 7370934 ####[facility] [address] [place] [address] Mucus Ql (Urine sed) TRACE Normal Fish er [facility] Comment on above: Performed By: #### 1 3178185, 8120314 ####[address] [address] Nitrite Ql (U) Negative Normal Negative [facility] Comment on above: Performed By: #### 1 7571989, 8653017 ####[facility] [address] [place] [address] pH (U) 7.0 [pH] Invalid Interpretation Code 5.0-9.0 [facility] Comment on above: Performed By: #### 1 6552000, 8869917 ####[place] [id number] Protein (U) [Mass/Vol] 2+ Abnormal Negative [facility] Comment on above: Performed By: #### 1 4112274, 8939784 ####[place] [address] Specific gravity (U) [Rel density] 1.015 Invalid Interpretation Code 1.005-1.030 [facility] Comment on above: Performed By: #### 1 7404068, 7921588 ####[place] [address] Type of Urine collection method Clean Catch Normal [facility] Comment on above: Performed By: #### 1 6570826, 3667542 ####[place] [address] Urobilinogen Qn (U) 0.2 {Rikki'U}/dL Normal 0.0-1.0 [facility] Comment on above: Performed By: #### 1 4287462, 0855413 ####[place] [address] WBC Auto Ql (U) TRACE Abnormal Negative [facility] Comment on above: Performed By: #### 1 4594571, 6492246 ####[place] [address] WBC LM.HPF (Urine sed) [#/Area] 6-15 Abnormal 0-5 [facility] Comment on above: Performed By: #### 1 5597174, 7757907 ####[place] [id number] XR Chest Single Viewon 01-06 XR Chest Single View Normal Fish er [facility] eGFRon 01-06-2023 GFR/1.73 sq M.predicted among non-blacks MDRD (S/P/Bld) [Vol rate/Area] 47 mL/min/1.73 m2 Low >=59 [facility] Comment on above: Order Comment: Order added by Discern Expert. Result Comment: [employer] gar[place] kidney disease could be indicated at eGFR's of less than 60 mL/min/1.73m2. Kidney failure is indicated at less than 15 mL/min/1.73m2. Performed By: #### 2 341913, 43788976, 5619563, 44165178, 8305593, 7541895, 4817418, 0512820 ####[address] [address] Auto Diffon 01-05-2023 Basophils/100 WBC (Bld) 0.3 % Normal 0.0-2.0 [facility] Comment on above: Order Comment: Order Added by Michael Expert. Performed By: #### 2 181249, 5118955 ####[address] [address] Basophils/Leukocytes Auto (Bld) [Pure # fraction] 0.0 E9/L Normal 0.0-0.2 [facility] Comment on above: Order Comment: Order Added by Michael Expert. Performed By: #### 2 144056, 0691433 ####[address] [address] Eosinophils/100 WBC (Bld) 0.3 % Normal 0.0-8.0 [facility] Comment on above: Order Comment: Order Added by Michael Expert. Performed By: #### 2 489853, 4920231 ####[address] [address] Eosinophils/Leukocytes Auto (Bld) [Pure # fraction] 0.0 E9/L Normal 0.0-0.5 [facility] Comment on above: Order Comment: Order Added by Michael Expert. Performed By: #### 2 390628, 8449391 ####[address] [address] Lymphocytes/100 WBC (Bld) 9.0 % Low 14.0-50.0 [facility] Comment on above: Order Comment: Order Added by Discern Expert. Performed By: #### 2 168176, 5808464 ####[place] [address] [place] [address] Lymphocytes/Leukocytes Auto (Bld) [Pure # fraction] 1.5 E9/L Normal 1.0-4.0 [facility] Comment on above: Order Comment: Order Added by Discern Expert. Performed By: #### 2 808458, 5331811 ####[address] [address] Monocytes/100 WBC (Bld) 3.4 % Low 4.0-14.0 [facility] Comment on above: Order Comment: Order Added by Discern Expert. Performed By: #### 2 286750, 9409691 ####[address] [address] Monocytes/Leukocytes Auto (Bld) [Pure # fraction] 0.6 E9/L Normal 0.2-1.0 [facility] Comment on above: Order Comment: Order Added by Discern Expert. Performed By: #### 2 693929, 2527242 ####[address] [address] Neutrophils/100 WBC (Bld) 87.0 % High 36.0-75.0 [facility] Comment on above: Order Comment: Order Added by Michael Expert. Performed By: #### 2 588058, 0914130 ####[address] [address] Neutrophils/Leukocytes Auto (Bld) [Pure # fraction] 14.3 E9/L High 2.0-7.5 [facility] Comment on above: Order Comment: Order Added by Michael Expert. Performed By: #### 2 407345, 7367170 ####[place] [address] [place] [address] BMPon 01-05-2023 Anion gap [Moles/Vol] 16 mmol/L Normal 6-16 [facility] Comment on above: Performed By: #### 1 7456823, 2078186, 7275286, 70040008, 86260952, 5234229, 1826001 ####[facility] [address] [place] [address] Calcium [Mass/Vol] 9.8 mg/dL Normal 8.9-11.1 [facility] Comment on above: Performed By: #### 1 9080303, 6154005, 6890191, 39377431, 88460507, 1841349, 8311439 ####[facility] [address] [place] [address] Chloride [Moles/Vol] 102 mmol/L Normal 101-111 [facility] Comment on above: Performed By: #### 1 7580646, 7239899, 7795025, 97283127, 88303977, 1432199, 7465272 ####[facility] [address] [place] [address] CO2 [Moles/Vol] 21 mmol/L Normal 21-31 [facility] Comment on above: Performed By: #### 1 1140394, 9186825, 9037556, 84903339, 94254526, 2883006, 6449431 ####[facility] [address] [place] [address] Creatinine [Mass/Vol] 1.4 mg/dL High 0.5-1.3 [facility] Comment on above: Performed By: #### 1 6990080, 9045792, 3716592, 68829317, 68908031, 8112064, 3323245 ####[facility] [address] [place] [address] Glucose [Mass/Vol] 243 mg/dL High 55-199 [facility] Comment on above: Result Comment: If t his glucose result represents a fasting glucose, interpretation should refer to the following reference range: 55-99 mg/dL Performed By: #### 1 0416974, 3856370, 4074290, 70157182, 41483408, 1296433, 0116580 ####[facility] [address] [place] [address] Potassium [Moles/Vol] 3.6 mmol/L Normal 3.5-5.3 [facility] Comment on above: Performed By: #### 1 0065679, 4450564, 8206489, 14273393, 57850056, 4554131, 9086171 ####[facility] [address] [place] [address] Sodium [Moles/Vol] 135 mmol/L Normal 135-145 [facility] Comment on above: Performed By: #### 1 0806945, 5906075, 1056107, 65323508, 91724330, 7961825, 6217425 ####[facility] [address] [place] [address] Urea nitrogen [Mass/Vol] 31 mg/dL High 5-21 [facility] Comment on above: Performed By: #### 1 8461256, 8144530, 5704302, 63216420, 57187076, 9218015, 6748595 ####[facility] [address] [place] [address] Urea nitrogen/Creatinine [Mass ratio] 22 No Units High 10-20 [facility] Comment on above: Performed By: #### 1 3264720, 0732114, 7723464, 74627750, 72188889, 0615997, 6583671 ####[facility] [address] [place] [address] CBC w/ Auto Diffon 3 Erythrocyte distribution width (RBC) [Ratio] 13.8 % Normal 10.9-14.2 [facility] Comment on above: Performed By: #### 2 391057, 4801554 ####[facility] [address] [place] [address] Hematocrit (Bld) [Volume fraction] 40.6 % Normal 34.0-46.0 [facility] Comment on above: Performed By: #### 2 275129, 3239421 ####[facility] [address] [place] [address] Hemoglobin (Bld) [Mass/Vol] 13.5 g/dL Normal 12.0-16.0 [facility] Comment on above: Performed By: #### 2 947087, 8119091 ####[address] [address] MCH (RBC) [Entitic mass] 29.8 pg Normal 27.0-34.0 [facility] Comment on above: Performed By: #### 2 397333, 9526138 ####[address] [address] MCHC (RBC) [Mass/Vol] 33.3 g/dL Normal 31.4-36.0 [facility] Comment on above: Performed By: #### 2 989545, 4330819 ####[address] [address] MCV (RBC) [Entitic vol] 89.5 fL Normal 80.0-100.0 [facility] Comment on above: Performed By: #### 2 443831, 1197104 ####[address] [address] Platelet mean volume (Bld) [Entitic vol] 7.1 fL Normal 6.4-10.8 [facility] Comment on above: Performed By: #### 2 958709, 3488488 ####[address] [address] Platelets (Bld) [#/Vol] 382.0 E9/L Normal 150.0-500.0 [facility] Comment on above: Performed By: #### 2 722929, 6183932 ####[address] [address] RBC (Bld) [#/Vol] 4.5 E12/L Normal 4.3-5.9 [facility] Comment on above: Performed By: #### 2 450650, 1806679 ####[address] [address] WBC corrected for nucl RBC Auto (Bld) [#/Vol] 16.4 E9/L High 4.0-11.0 [facility] Comment on above: Performed By: #### 2 239961, 1426226 ####[facility] [address] [place] [address] CT Abdomen/Pelvis w/ Contras ton 01-05-2023 CT Abdomen/Pelvis w/ Contrast Normal [facility] Consent for Treatmenton 12-18 Consent for Treatment [id number]# 1.00TIFF Normal [facility] Discharge Instructionson Discharge Instructions [id number]#1 .00TIFF Normal [facility] ED Clinical Summaryon 2022 ED Clinical Summary [facility] ED Note-Physicianon 01-06-20 ED Note-Physician Normal [facility] Comment on above: Result Comment: Elec tronically Signed By: Joanne Templeton DO\.br\Date and Time Signed: 01/05/23 19:29 EST ED Patient Education Noteon 01-05-2023 ED Patient Education Note Normal [facility] ED Patient Summaryon 023 ED Patient Summary Normal [facility] EMS Documentationon 01-06-20 EMS Documentation Please click on link to see report Normal [facility] Comment on above: Result Comment: Miss ing Attachment - attachment exceeds size limitation [id number] Can be viewed in source system Formson 01-05-2023 Forms [id number]# 1.00TIFF Normal [facility] Hep Func Panelon 01-05-2023 Bilirubin.indirect [Mass or moles/Vol] UTC Abnormal 0.1-0.9 [facility] Comment on above: Result Comment: Resu lt verified by Discern Rule. Performed result UTC (Unable to Calculate) was sent as an Alpha code due the inability to calculate a valid numeric value. Performed By: #### 1 9859884, 9007795, 5764117, 92077807, 50239345, 0242955, 6435090 ####[facility] [address] [place] [address] Albumin [Mass/Vol] 4.0 g/dL Normal 3.3-5.0 [facility] Comment on above: Performed By: #### 1 3779543, 3401001, 0465724, 35807256, 05962967, 7981231, 7411389 ####[facility] [address] [place] [address] Albumin/Globulin (S) [Mass conc ratio] 0.9 Low 1.1-2.2 [facility] Comment on above: Performed By: #### 1 7719142, 1757624, 0014364, 07751089, 67869919, 9995789, 4546975 ####[facility] [address] [place] [address] ALP [Catalytic activity/Vol] 126 Int._Unit/L High 21-98 [facility] Comment on above: Performed By: #### 1 7810644, 1802900, 8426828, 20566929, 72127681, 9178221, 1504406 ####[facility] [address] [place] [address] ALT No additional P-5'-P [Catalytic activity/Vol] 25 Int._Unit/L Normal 6-46 [facility] Comment on above: Performed By: #### 1 6604576, 0216096, 5343900, 01617761, 82887280, 4851043, 3495648 ####[facility] [address] [place] [address] AST [Catalytic activity/Vol] 24 Int._Unit/L Normal 5-43 [facility] Comment on above: Performed By: #### 1 2307474, 1512480, 0594942, 56427336, 50647825, 2758523, 6413412 ####[facility] [address] [place] [address] Bilirubin [Mass/Vol] 0.6 mg/dL Normal 0.0-1.1 [facility] Comment on above: Performed By: #### 1 1567401, 6050705, 2645014, 46247841, 12523484, 1832465, 3706490 ####[facility] [address] [place] [address] Globulin (S) [Mass/Vol] 4.3 g/dL High 1.4-4.0 [facility] Comment on above: Performed By: #### 1 1723402, 8059133, 3325999, 58781928, 50811429, 8791330, 8497432 ####[facility] [address] [place] [address] Protein [Mass/Vol] 8.3 g/dL High 6.0-7.8 [facility] Comment on above: Performed By: #### 1 8737402, 8831636, 7210963, 48395637, 79525506, 9428871, 4496642 ####[facility] [address] [place] [address] Bilirubin.direct [Mass/Vol] mg/dL Normal 0.1-0.4 [facility] Comment on above: Performed By: #### 1 3808091, 8168875, 2823837, 83300250, 00901172, 7385391, 0827466 ####[facility] [address] [place] [address] Lactic Acidon 01-05-2023 Lactate [Mass/Vol] 1.6 mmol/L Normal 0.5-2.2 [facility] Comment on above: Performed By: #### 1 5348305, 0120279, 8148268, 61307706, 18731934, 9289346, 7935489 ####[facility] [address] [place] [address] Lipase Levelon 01-05-2023 Lipase [Catalytic activity/Vol] 30 U/L Normal 13-58 [facility] Comment on above: Performed By: #### 1 5939279, 9259225, 6692268, 77460101, 24781982, 7383485, 2177196 ####[facility] [address] [place] [address] Monitor Recordon 01-05-2023 Monitor Record [id number]# 1.00TIFF Normal [facility] PT & PTTon 01-05-2023 aPTT Coag (PPP) [Time] 42.6 second(s) High 25.1-36.5 [facility] Comment on above: Result Comment: Para meter 15 days - 4 weeks 1 - 5 months 6 - 11 months 1 - 5 years 6 - 10 years 11 - 17 years PTT Mean: 35.4 (27.6-45.6) Mean: 33.5 (24.8-40.7) Mean: 32.4 (25.1-40.7) Mean: 31.6 (24.0-39.2) Mean: 31.6 (26.9-38.7) Mean: 31.0 (24.6-38.4) Pediatric Reference ranges were obtained from a study by Clarence Anguiano et al. prepared from 1437 samples obtained at 7 different centers using the same coagulation reagent and instrumentation as [facility]. Currently there are no coagulation studies available worldwide for children to 14 days, and no normal ranges. Heparin therapeutic range (represented by Anti-Factor Xa activity of 0.2 - 0.4 U/mL) corresponds to PTT of 56.6 - 109.0 sec. Performed By: #### 1 8238392, 6438415, 6961473, 79568411, 08390489, 2016626, 4616305 ####[facility] [address] [place] [address] INR Coag (PPP) [Relative time] 1.2 {INR} Invalid Interpretation Code [facility] Comment on above: Result Comment: INR results are specifically intended to assess patients stabilized on long-term Anticoagulation therapy suggested INR?s ?Less Intensive Anticoagulation? 2.0 ? 3.0Conventional Range 3.0 ? 4.5 Performed By: #### 1 8931502, 0560466, 8272387, 39818254, 84282679, 3986736, 0391082 ####[facility] [address] [place] [address] PT Coag (PPP) [Time] 13.4 second(s) High 9.4-12.5 [facility] Comment on above: Result Comment: 15 d ays - 4 weeks 1 - 5 months 6 -11 months 1-5 years 6-10 years 11 -17 years Mean: 11.2 (9.5-12.6) Mean: 11.0 (9.7-12.8) Mean: 11.0 (9.8-13.0) Mean: 11.3 (9.9-13.4) Mean: 11.7 (10.0-14.6) Mean: 11.8 (10.0 - 14.1) Pediatric Reference ranges were obtained from a study by Clarence Anguiano et al. prepared from 1437 samples obtained at 7 different centers using the same coagulation reagent and instrumentation as [facility]. Currently there are no coagulation studies available worldwide for children to 14 days, and no normal ranges. Performed By: #### 1 8702824, 4937511, 5660430, 17600093, 86970041, 3874106, 0560654 ####[facility] [address] [place] [address] Pre-Arrival Noteon 3 Pre-Arrival Note Normal [facility] Transfer Documentson 023 Transfer Documents [id number]#1 .00TIFF Normal [facility] Troponin 0 Hr.on 01-05-2023 Troponin I.cardiac [Mass/Vol] 13.30 pg/mL Normal 10.10-27.10 [facility] Comment on above: Result Comment: The 95% CI (Confidence Interval) PPV (Positive Predictive Value) for myocardial infarction in females is 38 pg/mL, in males 51 pg/mL. The results should be used in conjunction with clinical conditions of myocardial infarction.(Access High Sensitivity Troponin I Instructions For Use, Jon Justine, September 2017) Performed By: #### 1 1866981, 4599009, 5679774, 48444052, 07728337, 7483503, 0350979 ####[facility] [address] [place] [address] UA With Cult Reflexon 2022 Bacteria LM Ql (Urine sed) TRACE Normal Trace [facility] Comment on above: Performed By: #### 1 6332573 ####[facility] [address] [place] [address] Bilirubin Ql (U) Negative Normal Negative [facility] Comment on above: Performed By: #### 1 5654581 ####[address] [address] Clarity (U) CLEAR Normal Clear [facility] Comment on above: Performed By: #### 1 4657215 ####[address] [address] Color (U) YELLOW Normal Yellow [facility] Comment on above: Performed By: #### 1 7956902 ####[address] [address] Epithelial cells.squamous LM.HPF (Urine sed) [#/Area] 0-2 Normal 0-2 [facility] Comment on above: Performed By: #### 1 3554968 ####[facility] [address] [place] [address] Glucose Test strip (U) [Mass/Vol] 2+ Abnormal Negative [facility] Comment on above: Performed By: #### 1 6714756 ####[facility] [address] [place] [address] Hemoglobin Ql (U) 1+ Abnormal Negative [facility] Comment on above: Performed By: #### 1 5610627 ####[facility] [address] [place] [address] Ketones (U) [Mass/Vol] 1+ Abnormal Negative [facility] Comment on above: Performed By: #### 1 9582180 ####[facility] [address] [place] [address] [place].plasma/[place]. RBC (Bld) [Mass ratio] 4-20 Normal 0-3 [facility] Comment on above: Performed By: #### 1 5142202 ####[facility] [address] [place] [address] Mucus Ql (Urine sed) TRACE Normal [facility] Comment on above: Performed By: #### 1 8431515 ####[address] [address] Nitrite Ql (U) Negative Normal Negative [facility] Comment on above: Performed By: #### 1 5347484 ####[address] [address] pH (U) 6.5 [pH] Invalid Interpretation Code 5.0-9.0 [facility] Comment on above: Performed By: #### 1 9310673 ####[address] [address] Protein (U) [Mass/Vol] 3+ Abnormal Negative [facility] Comment on above: Performed By: #### 1 9813185 ####[address] [address] Specific gravity (U) [Rel density] 1.025 Invalid Interpretation Code 1.005-1.030 [facility] Comment on above: Performed By: #### 1 6184624 ####[address] [address] Type of Urine collection method Clean Catch Normal [facility] Comment on above: Performed By: #### 1 9247524 ####[address] [address] Urobilinogen Qn (U) 0.2 {Rikki'U}/dL Normal 0.0-1.0 [facility] Comment on above: Performed By: #### 1 7575694 ####[address] [address] WBC Auto Ql (U) Negative Normal Negative [facility] Comment on above: Performed By: #### 1 0332732 ####[address] [address] WBC LM.HPF (Urine sed) [#/Area] 0-5 Normal 0-5 [facility] Comment on above: Performed By: #### 1 2002403 ####[facility] [facility] [address] [place] [address] XR Chest Single Viewon 01-05 XR Chest Single View Normal Fish er [facility] eGFRon 01-05-2023 GFR/1.73 sq M.predicted among non-blacks MDRD (S/P/Bld) [Vol rate/Area] 43 mL/min/1.73 m2 Low >=59 [facility] Comment on above: Order Comment: Order added by Discern Expert. Result Comment: [employer] garfield kidney disease could be indicated at eGFR's of less than 60 mL/min/1.73m2. Kidney failure is indicated at less than 15 mL/min/1.73m2. Performed By: #### 1 [id number], 9609411, 7875606, 50898321, 13875848, 4275136, 9788978 ####[facility] [address] [place] [address] Auto Diffon 01-04-2023 Basophils/100 WBC (Bld) 0.1 % Normal 0.0-2.0 [facility] Comment on above: Order Comment: Order Added by Discern Expert. Performed By: #### 2 522724, 06103951, 3291956, 4456900 ####[address] [place] [address] Basophils/Leukocytes Auto (Bld) [Pure # fraction] 0.0 E9/L Normal 0.0-0.2 [facility] Comment on above: Order Comment: Order Added by Discern Expert. Performed By: #### 2 598494, 31143198, 9018291, 0183148 ####[address] [place] [address] Eosinophils/100 WBC (Bld) 0.0 % Normal 0.0-8.0 [facility] Comment on above: Order Comment: Order Added by Discern Expert. Performed By: #### 2 195052, 28500120, 3679906, 6946233 ####[facility] [address] [place] [address] Eosinophils/Leukocytes Auto (Bld) [Pure # fraction] 0.0 E9/L Normal 0.0-0.5 [facility] Comment on above: Order Comment: Order Added by Discern Expert. Performed By: #### 2 110985, 16358537, 0677706, 6549994 ####[address] [address] Lymphocytes/100 WBC (Bld) 7.6 % Low 14.0-50.0 [facility] Comment on above: Order Comment: Order Added by Discern Expert. Performed By: #### 2 860050, 73047286, 0920298, 9351390 ####[address] [address] Lymphocytes/Leukocytes Auto (Bld) [Pure # fraction] 1.0 E9/L Normal 1.0-4.0 [facility] Comment on above: Order Comment: Order Added by Discern Expert. Performed By: #### 2 908714, 13584621, 6853193, 4893506 ####[address] [address] Monocytes/100 WBC (Bld) 2.7 % Low 4.0-14.0 [facility] Comment on above: Order Comment: Order Added by Discern Expert. Performed By: #### 2 767640, 87089559, 0488559, 8132889 ####[address] [address] Monocytes/Leukocytes Auto (Bld) [Pure # fraction] 0.4 E9/L Normal 0.2-1.0 [facility] Comment on above: Order Comment: Order Added by Discern Expert. Performed By: #### 2 283066, 92241017, 8149314, 5014783 ####[address] [place] [address] Neutrophils/100 WBC (Bld) 89.6 % High 36.0-75.0 [facility] Comment on above: Order Comment: Order Added by Discern Expert. Performed By: #### 2 510651, 54842672, 4457378, 7789103 ####[address] [place] [address] Neutrophils/Leukocytes Auto (Bld) [Pure # fraction] 11.8 E9/L High 2.0-7.5 [facility] Comment on above: Order Comment: Order Added by Discern Expert. Performed By: #### 2 588151, 27375655, 9646431, 2129319 ####[address] [address] CBC w/ Auto Diffon Erythrocyte distribution width (RBC) [Ratio] 13.8 % Normal 10.9-14.2 [facility] Comment on above: Performed By: #### 2 386512, 03786965, 0555504, 1450784 ####[address] [address] Hematocrit (Bld) [Volume fraction] 41.9 % Normal 34.0-46.0 [facility] Comment on above: Performed By: #### 2 590219, 14308675, 1238176, 7494647 ####[address] [address] Hemoglobin (Bld) [Mass/Vol] 13.9 g/dL Normal 12.0-16.0 [facility] Comment on above: Performed By: #### 2 733776, 11042743, 3780288, 9924420 ####[facility] [address] [place] [address] MCH (RBC) [Entitic mass] 30.1 pg Normal 27.0-34.0 [facility] Comment on above: Performed By: #### 2 073060, 55122748, 3662565, 2223021 ####[facility] [address] [place] [address] MCHC (RBC) [Mass/Vol] 33.2 g/dL Normal 31.4-36.0 [facility] Comment on above: Performed By: #### 2 012351, 08867936, 0242224, 8814580 ####[address] [place] [address] MCV (RBC) [Entitic vol] 90.7 fL Normal 80.0-100.0 [facility] Comment on above: Performed By: #### 2 235581, 39594776, 9859037, 0485398 ####[facility] [address] [place] [address] Platelet mean volume (Bld) [Entitic vol] 7.2 fL Normal 6.4-10.8 [facility] Comment on above: Performed By: #### 2 071549, 69475529, 8045812, 1620114 ####[address] [address] Platelets (Bld) [#/Vol] 395.0 E9/L Normal 150.0-500.0 [facility] Comment on above: Performed By: #### 2 719401, 85295907, 7434900, 0869894 ####[address] [address] RBC (Bld) [#/Vol] 4.6 E12/L Normal 4.3-5.9 [facility] Comment on above: Performed By: #### 2 747293, 19255463, 1098751, 3373861 ####[address] [address] WBC corrected for nucl RBC Auto (Bld) [#/Vol] 13.2 E9/L High 4.0-11.0 [facility] Comment on above: Performed By: #### 2 751257, 04427595, 1592076, 1922708 ####[address] [address] CMPon 01-04-2023 Albumin [Mass/Vol] 4.3 g/dL Normal 3.3-5.0 [facility] Comment on above: Performed By: #### 2 072825, 33950357, 5174632, 1358668 ####[address] [place] [address] Albumin/Globulin (S) [Mass conc ratio] 1.0 Low 1.1-2.2 [facility] Comment on above: Performed By: #### 2 146700, 25399681, 1682648, 3443448 ####[address] [address] ALP [Catalytic activity/Vol] 148 Int._Unit/L High 21-98 [facility] Comment on above: Performed By: #### 2 593008, 43733896, 5927326, 8773813 ####[address] [address] ALT No additional P-5'-P [Catalytic activity/Vol] 33 Int._Unit/L Normal 6-46 [facility] Comment on above: Performed By: #### 2 388791, 95389827, 1396493, 7443896 ####[facility] [address] [place] [address] Anion gap [Moles/Vol] 16 mmol/L Normal 6-16 [facility] Comment on above: Performed By: #### 2 873786, 33644396, 2829428, 9423121 ####[address] [address] AST [Catalytic activity/Vol] 33 Int._Unit/L Normal 5-43 [facility] Comment on above: Performed By: #### 2 109678, 85150214, 9559298, 7365200 ####[address] [place] [address] Bilirubin [Mass/Vol] 0.5 mg/dL Normal 0.0-1.1 [facility] Comment on above: Performed By: #### 2 332523, 77664033, 6159268, 7620137 ####[facility] [address] [place] [address] [place] [address] Calcium [Mass/Vol] 10.0 mg/dL Normal 8.9-11.1 [facility] Comment on above: Performed By: #### 2 688718, 69459750, 3067107, 9367513 ####[facility] [address] [place] [address] Chloride [Moles/Vol] 102 mmol/L Normal 101-111 [facility] Comment on above: Performed By: #### 2 357798, 34432577, 7661721, 5318516 ####[facility] [address] [place] [address] CO2 [Moles/Vol] 27 mmol/L Normal 21-31 [facility] Comment on above: Performed By: #### 2 313948, 09289493, 9035042, 9900166 ####[facility] [address] [place] [address] Creatinine [Mass/Vol] 1.2 mg/dL Normal 0.5-1.3 [facility] Comment on above: Performed By: #### 2 201752, 51604531, 5235103, 5345160 ####[facility] [address] [place] [address] Globulin (S) [Mass/Vol] 4.2 g/dL High 1.4-4.0 [facility] Comment on above: Performed By: #### 2 792964, 93832728, 7495573, 8517310 ####[facility] [address] [place] [address] Glucose [Mass/Vol] 245 mg/dL High 55-199 [facility] Comment on above: Result Comment: If t his glucose result represents a fasting glucose, interpretation should refer to the following reference range: 55-99 mg/dL Performed By: #### 2 290047, 03314266, 1067107, 4173359 ####[facility] [address] [place] [address] Potassium [Moles/Vol] 4.5 mmol/L Normal 3.5-5.3 [facility] Comment on above: Performed By: #### 2 127909, 61399620, 7155842, 3796155 ####[facility] [address] [place] [address] Protein [Mass/Vol] 8.5 g/dL High 6.0-7.8 [facility] Comment on above: Performed By: #### 2 830084, 37109670, 1283878, 6736697 ####[facility] [address] [place] [address] Sodium [Moles/Vol] 140 mmol/L Normal 135-145 [facility] Comment on above: Performed By: #### 2 254688, 61241625, 3081926, 6329870 ####[facility] [address] [place] [address] Urea nitrogen [Mass/Vol] 24 mg/dL High 5-21 [facility] Comment on above: Performed By: #### 2 474559, 29248446, 9669903, 4558787 ####[facility] [address] [place] [address] Urea nitrogen/Creatinine [Mass ratio] 20 No Units Normal 10-20 [facility] Comment on above: Performed By: #### 2 603747, 37543396, 2529568, 4532998 ####[facility] [address] [place] [address] Physician Orderon 01-04-2023 Physician Order [id number]#1. 00TIFF Normal [facility] eGFRon 01-04-2023 GFR/1.73 sq M.predicted among non-blacks MDRD (S/P/Bld) [Vol rate/Area] 52 mL/min/1.73 m2 Low >=59 [facility] Comment on above: Order Comment: Order added by Discern Expert. Result Comment: [employer] [place] kidney disease could be indicated at eGFR's of less than 60 mL/min/1.73m2. Kidney failure is indicated at less than 15 mL/min/1.73m2. Performed By: #### 2 436866, 59259220, 3638091, 8424626 ####[facility] [address] [place] [address] BD Bone Density DEXAon 12-14 BD Bone Density DEXA Normal [facility] Consent for Treatmenton 11-18 Consent for Treatment [id number]#1 .00TIFF Normal [facility] Physician Orderon 12-13-2022 Physician Order [id number]#1. 00TIFF [facility] Physician Order [id number]#1 .00TIFF [facility] RAD - MISCon 12-13-2022 RAD - MISC [id number]# 1.00TIFF [facility] Physician Orderon 12-11-2022 Physician Order [id number]#1. 00TIFF [facility] CT Spine Lumbar w/o Contrast on 12-06-2022 CT Spine Lumbar w/o Contrast [facility] Consent for Procedure/Surger yon 12-05-2022 Consent for Procedure/Surgery [id number]# 1.00TIFF [facility] Consent for Treatmenton 11-17 Consent for Treatment [id number]#1 .00TIFF [facility] Physician Orderon 12-05-2022 Physician Order [id number]# 1.00TIFF [facility] Ambulatory Visit Summaryon Ambulatory Visit Summary [facility] Gastroenterology Office/Clin ic Noteon 12-03-2022 Gastroenterology Office/Clinic Note Normal [facility] Comment on above: Result Comment: Elec tronically Signed By: Kain VIVEROS, Giulia Khan\.nedra\Date and Time Signed: 12/03/22 14:[address] CERVICAL SPINE WO CONTRAS Ton 11-23-2022 CT CERVICAL SPINE WO CONTRAST EXAMINATION: CT CERVICAL SPINE WO CONTRAST HISTORY: S/P cervical spinal fusion. COMPARISON: X-rays 04/02/2022. CT 09/26/2021. TECHNIQUE: CT Cervical spine without IV contrast. Coronal and sagittal reformations were performed. Dose reduction techniques were achieved by using automated exposure control and/or adjustment of mA and/or kV according to patient size and/or use of iterative reconstruction technique. FINDINGS: Convex left curvature of the upper cervical spine. There is a healed deformity of the odontoid process with anterior apex angulation. Partial bony fusion between the anterior arch of C1 and odontoid process is noted. Posterior fixation hardware at C1-C2 is redemonstrated with solid fusion across the posterior elements of C1 through C3. Lateral pillars appear preserved. No malalignment. Moderate disc space narrowing and endplate spur noted at C6-C7. No acute fracture is seen. No prevertebral soft tissue swelling. No paraspinal mass is seen. Mild to moderate calcific plaque in the carotid arteries. There is some soft tissue pannus posterior to the odontoid process with narrowing of the AP diameter of the spinal canal at C1 compatible with mild central canal stenosis. C2-C3: Small central protrusion and short pedicles narrows the AP diameter of spinal canal to 8 to 9 mm compatible with poyj-dg-pjmjtcvo central stenosis. No neural foraminal stenosis. C3-C4: Minimal disc bulge without significant central canal stenosis. Bilateral uncovertebral spur and facet disease without significant neural foraminal stenosis. C4-C5: Disc bulge with small central protrusion and spondylitic ridging narrows the AP diameter of the spinal canal to 9 mm compatible with mild central canal stenosis. Bilateral uncovertebral spur and facet disease without significant neural foraminal stenosis. C5-C6: Minimal disc bulge and spondylitic ridging without significant central canal stenosis. Bilateral uncovertebral spur and facet disease causes mild to moderate right and no significant left neural foraminal stenosis. C6-C7: Disc osteophyte complex is seen without significant central canal stenosis. Bilateral uncovertebral spur and facet disease causes mild left and no significant right neural foraminal stenosis. C7-T1: No focal disc abnormality. No significant central canal or neural foraminal stenosis. IMPRESSION: 1. Interval healed deformity of the odontoid process with solid fusion across the pre-dentate space. 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 Posterior fixation hardware at C1-C2 is intact with solid fusion across C1 to C3. 2. Similar pattern of moderate degenerative disc disease. Mild to moderate central canal stenoses at C2-C3 and mild central canal stenosis C4-C5. 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 Interpreted by: Chance Hugo DO Signed by: Chance Hugo DO 11/23/22 Final result Normal [facility] XR CERVICAL SPINE (4-5 VIEWS )on 04-03-2022 XR CERVICAL SPINE (4-5 VIEWS) EXAMINATION: 4 XRAY VIEWS OF THE CERVICAL SPINE 04/02/2022 2:08 pm COMPARISON: CT cervical spine performed 09/26/2021. HISTORY: ORDERING SYSTEM PROVIDED HISTORY: S/P cervical spinal fusion TECHNOLOGIST PROVIDED HISTORY: AP lateral, flex ex eval for stability FINDINGS: There is posterior fusion at the C1-2 level without complication. There is prior dens fracture appreciated. The remaining vertebral body heights are maintained. The disc spaces are maintained with anterior osteophytes. There is multilevel degenerative facet hypertrophy. There is no spondylolisthesis. There is no pathologic motion or instability. The prevertebral soft tissues are unremarkable. The lung apices are without acute process. IMPRESSION: Prior dens fracture with posterior fixation at C1-2 without complication. Multilevel degenerative facet hypertrophy. Interpreted by: Clark Veliz MD Signed by: Clark Veliz MD 04/03/22 Final result Normal [facility] Prior dens fracture with posterior fixation at C1-2 without complication. Multilevel degenerative facet hypertrophy. [facility] EXAMINATION: 4 XRAY VIEWS OF THE CERVICAL SPINE 04/02/2022 2:08 pm COMPARISON: CT cervical spine performed 09/26/2021. HISTORY: ORDERING SYSTEM PROVIDED HISTORY: S/P cervical spinal fusion TECHNOLOGIST PROVIDED HISTORY: AP lateral, flex ex eval for stability FINDINGS: There is posterior fusion at the C1-2 level without complication. There is prior dens fracture appreciated. The remaining vertebral body heights are maintained. The disc spaces are maintained with anterior osteophytes. There is multilevel degenerative facet hypertrophy. There is no spondylolisthesis. There is no pathologic motion or instability. The prevertebral soft tissues are unremarkable. The lung apices are without acute process. [facility] Clark Veliz MD - 04/03/2022 EXAMINATION: 4 XRAY VIEWS OF THE CERVICAL SPINE 04/02/2022 2:08 pm COMPARISON: CT cervical spine performed 09/26/2021. HISTORY: ORDERING SYSTEM PROVIDED HISTORY: S/P cervical spinal fusion TECHNOLOGIST PROVIDED HISTORY: AP lateral, flex ex eval for stability FINDINGS: There is posterior fusion at the C1-2 level without complication. There is prior dens fracture appreciated. The remaining vertebral body heights are maintained. The disc spaces are maintained with anterior osteophytes. There is multilevel degenerative facet hypertrophy. There is no spondylolisthesis. There is no pathologic motion or instability. The prevertebral soft tissues are unremarkable. The lung apices are without acute process. IMPRESSION: Prior dens fracture with posterior fixation at C1-2 without complication. Multilevel degenerative facet hypertrophy. [employer] Phone: XR CERVICAL SPINE (4-5 VIEWS )Ordered By: Clark Veliz on 04-03-2022 [employer] Phone: XR CERVICAL SPINE (4-5 VIEWS )on 04-02-2022 Radiology Study observation (narrative) [employer] Phone: XR CERVICAL SPINE FLEXION AN D EXTENSIONon 12-06-2021 Similar angulated pathologic dens fracture with posterior fixation C1-C2. [facility] EXAMINATION: 2 XRAY VIEWS OF THE CERVICAL SPINE 12/04/2021 10:31 am COMPARISON: 09/23/2021, 09/25/2021 HISTORY: ORDERING SYSTEM PROVIDED HISTORY: Atlantoaxial instability TECHNOLOGIST PROVIDED HISTORY: post-op FINDINGS: Similar appearance of fixation hardware posteriorly at C1-C2. Pathologic dens fracture with similar angulation in comparison to prior exams. Somewhat limited motion without definite dynamic instability on flexion/extension views. There is a tracheostomy tube in place. Similar xyzk-ba-yajtsnly degenerative changes lower cervical spine. No localized prevertebral soft tissue swelling. [facility] Jose Chan MD - 12/06/2021 EXAMINATION: 2 XRAY VIEWS OF THE CERVICAL SPINE 12/04/2021 10:31 am COMPARISON: 09/23/2021, 09/25/2021 HISTORY: ORDERING SYSTEM PROVIDED HISTORY: Atlantoaxial instability TECHNOLOGIST PROVIDED HISTORY: post-op FINDINGS: Similar appearance of fixation hardware posteriorly at C1-C2. Pathologic dens fracture with similar angulation in comparison to prior exams. Somewhat limited motion without definite dynamic instability on flexion/extension views. There is a tracheostomy tube in place. Similar thch-uh-ocwfdopz degenerative changes lower cervical spine. No localized prevertebral soft tissue swelling. IMPRESSION: Similar angulated pathologic dens fracture with posterior fixation C1-C2. [employer] Phone: XR CERVICAL SPINE FLEXION AN D EXTENSIONOrdered By: Jose Chan on 12-06-2021 [employer] Phone: XR CERVICAL SPINE FLEXION AN D EXTENSIONon 12-04-2021 Radiology Study observation (narrative) [employer] Phone: Basic Metabolic Panelon 10-0 Anion gap [Moles/Vol] 15.1 mmol/L High 6.0-15.0 [facility] Comment on above: Performed By: #### C BC, BMP #### [facility] [address] [place] [address] [place] Calcium [Mass/Vol] 9.6 mg/dL Normal 8.2-10.2 [facility] Comment on above: Result Comment: PERF ORMED BY: [place] [address] PATHOLOGIST FALL INTERN ALEYDA GUERRIER M.D. Performed By: #### C BC, BMP #### [facility] [address] [place] [address] [place] Chloride [Moles/Vol] 97 mmol/L Normal 95-114 [facility] Comment on above: Performed By: #### C BC, BMP #### [facility] [address] [place] [id number] [place] CO2 [Moles/Vol] 25.4 mmol/L Normal 22.0-30.0 [facility] Comment on above: Performed By: #### C BC, BMP #### [facility] [address] Creatinine [Mass/Vol] 0.82 mg/dL Normal 0.44-1.03 [facility] Comment on above: Performed By: #### C BC, BMP #### [facility] [address] Estimated GFR ( Jesusita > 60 Normal [facility] Comment on above: Result Comment: GFR estimated reference range: According to KDOQI guidelines, <60 ml/min/1.73m2 is sufficient to diagnose a patient with chronic kidney disease. Performed By: #### C BC, BMP #### [facility] [address] Estimated GFR (Non- Am > 60 [facility] Comment on above: Performed By: #### C BC, BMP #### [facility] [address] Glucose [Mass/Vol] 105 mg/dL High 70-100 [facility] Comment on above: Result Comment: Hana om Glucose Reference Range is dependent on time and content of last meal. Glucose of more than 200 mg/dL in a nonstressed, ambulatory subject supports the diagnosis of Diabetes Mellitus. ADA recommended reference range Performed By: #### C BC, BMP #### [facility] [address] [place] [id number] [place] Potassium [Moles/Vol] 4.5 mmol/L Normal 3.5-5.1 [facility] Comment on above: Performed By: #### C BC, BMP #### [facility] [address] [place] [id number] [place] Sodium [Moles/Vol] 133 mmol/L Low 136-146 [facility] Comment on above: Performed By: #### C BC, BMP #### [facility] [address] [place] [id number] [facility] Urea nitrogen [Mass/Vol] 31 mg/dL High 9-23 [facility] Comment on above: Performed By: #### C BC, BMP #### [facility] [address] [place] [address] [place] Basophils Auto (Bld) [#/Vol] Ordered By: Rufus Shen on 11-22-2021 Basophils (Bld) [#/Vol] 0.0 10*3/uL 0.0-0.2 [facility] Basophils/100 WBC Auto (Bld) Ordered By: Rufus Shen on 11-22-2021 Basophils/100 WBC (Bld) 0.3 % . [facility] Blood hemoglobin measurement (mass/volume)Ordered By: Rufus Shen on 11-22-2021 Hemoglobin (Bld) [Mass/Vol] 10.1 g/dL 11.8-15.4 [facility] Blood leukocytes automated c ount (number/volume)Ordered By: Rufus Shen on 11-22-2021 WBC (Bld) [#/Vol] 12.2 10*3/uL 4.5-11.0 [facility] Complete Blood Count Auto Di ffon 11-22-2021 Basophils (Bld) [#/Vol] 0.0 10*3/uL Normal 0.0-0.2 [facility] Comment on above: Result Comment: PERF ORMED BY: [place] [address] PATHOLOGIST FALL INTERN ALEYDA GUERRIER M.D. Performed By: #### C CORIE, BMP #### [facility] [address] [place] [address] [place] Basophils/100 WBC (Bld) 0.3 % Normal . [facility] Comment on above: Performed By: #### C BC, BMP #### [facility] [address] [place] [address] [place] Eosinophils (Bld) [#/Vol] 0.2 10*3/uL Normal 0.0-0.45 [facility] Comment on above: Performed By: #### C BC, BMP #### [facility] [address] [place] [address] [place] Eosinophils/100 WBC (Bld) 2.0 % Normal . [facility] Comment on above: Performed By: #### C BC, BMP #### [facility] [address] Erythrocyte distribution width (RBC) [Ratio] 19.2 % High 11.9-15.3 [facility] Comment on above: Performed By: #### C BC, BMP #### [facility] [address] Hematocrit (Bld) [Volume fraction] 32.0 % Low 34.0-46.4 [facility] Comment on above: Performed By: #### C BC, BMP #### [facility] [facility] [address] Hemoglobin (Bld) [Mass/Vol] 10.1 g/dL Low 11.8-15.4 [facility] Comment on above: Performed By: #### C BC, BMP #### [address] Lymphocytes (Bld) [#/Vol] 2.2 10*3/uL Normal 1.00-4.8 [facility] Comment on above: Performed By: #### C BC, BMP #### [address] Lymphocytes/100 WBC (Bld) 18.2 % Normal . [facility] Comment on above: Performed By: #### C BC, BMP #### [address] MCH (RBC) [Entitic mass] 27.0 pg Normal 24.7-34.3 [facility] Comment on above: Performed By: #### C BC, BMP #### [address] MCV (RBC) [Entitic vol] 85.7 fL Normal 80-100 [facility] Comment on above: Performed By: #### C BC, BMP #### [address] Mean Corpuscular HGB Conc 31.5 g/dL Low 32.0-35.0 [facility] Comment on above: Performed By: #### C BC, BMP #### [facility] [address] [place] [address] [place] Monocytes (Bld) [#/Vol] 0.6 10*3/uL Normal 0.0-0.8 [facility] Comment on above: Performed By: #### C BC, BMP #### [facility] [address] [place] [address] [place] Monocytes/100 WBC (Bld) 5.3 % Normal . [facility] Comment on above: Performed By: #### C BC, BMP #### [facility] [address] [place] [address] [place] Neutrophils (Bld) [#/Vol] 9.0 10*3/uL High 1.8-7.7 [facility] Comment on above: Performed By: #### C BC, BMP #### [facility] [address] [place] [id number] [place] Neutrophils/100 WBC (Bld) 74.2 % Normal . [facility] Comment on above: Performed By: #### C BC, BMP #### [facility] [address] [place] [id number] [place] Nucleated RBC/100 WBC (Bld) [Ratio] 0.0 % Normal 0-0.5 [facility] Comment on above: Performed By: #### C BC, BMP #### [facility] [address] [place] [phone] [place] Platelet mean volume (Bld) [Entitic vol] 7.4 fL Normal 6.3-10.7 [facility] Comment on above: Performed By: #### C BC, BMP #### [facility] [address] [place] [phone] [place] Platelets (Bld) [#/Vol] 543 10*3/uL High 150-450 [facility] Comment on above: Performed By: #### C BC, BMP #### [facility] [address] [place] [address] [place] RBC (Bld) [#/Vol] 3.74 10*6/uL Normal 3.60-5.00 [facility] Comment on above: Performed By: #### C BC, BMP #### [facility] [address] [place] [phone] [place] WBC (Bld) [#/Vol] 12.2 10*3/uL High 4.5-11.0 [facility] Comment on above: Performed By: #### C CORIE, BMP #### [facility] [address] Creatinine and Glomerular fi ltration rate.predicted panel (S/P/Bld)Ordered By: Rufus Shen on 11-22-2021 Creatinine [Mass/Vol] 0.82 mg/dL 0.44-1.03 [facility] Eosinophils Auto (Bld) [#/Vo l]Ordered By: Rufus Shen on 11-22-2021 Eosinophils (Bld) [#/Vol] 0.2 10*3/uL 0.0-0.45 [facility] Eosinophils/100 WBC Auto (Bl d)Ordered By: Rufus Shen on 11-22-2021 Eosinophils/100 WBC (Bld) 2.0 % . [facility] Erythrocyte distribution wid th Auto (RBC) [Ratio]Ordered By: Rufus Shen on 11-22-2021 Erythrocyte distribution width (RBC) [Ratio] 19.2 % 11.9-15.3 [facility] Estimated glomerular filtrat ion rate (GFR) non- AmericanOrdered By: Rufus Shen on 11-22-2021 GFR/1.73 sq M.predicted among non-blacks MDRD (S/P/Bld) [Vol rate/Area] > 60 mL/Min [facility] Hematocrit Auto (Bld) [Volum e fraction]Ordered By: Rufus Shen on 11-22-2021 Hematocrit (Bld) [Volume fraction] 32.0 % 34.0-46.4 [facility] Laboratory - Hematology and Cell countsOrdered By: Rufus Shen on 11-22-2021 Nucleated RBC/100 WBC (Bld) [Ratio] 0.0 % 0-0.5 [facility] Lymphocytes Auto (Bld) [#/Vo l]Ordered By: Rufus Shen on 11-22-2021 Lymphocytes (Bld) [#/Vol] 2.2 10*3/uL 1.00-4.8 [facility] Lymphocytes/100 WBC Auto (Bl d)Ordered By: Rufus Shen on 11-22-2021 Lymphocytes/100 WBC (Bld) 18.2 % . [facility] MCH Auto (RBC) [Entitic mass ]Ordered By: Rufus Shen on 11-22-2021 MCH (RBC) [Entitic mass] 27.0 pg 24.7-34.3 [facility] MCHC Auto (RBC) [Mass/Vol]Or dered By: Rufus Shen on 11-22-2021 MCHC (RBC) [Mass/Vol] 31.5 g/dL 32.0-35.0 [facility] MCV Auto (RBC) [Entitic vol] Ordered By: Rufus Shen on 11-22-2021 MCV (RBC) [Entitic vol] 85.7 fL 80-100 [facility] Monocytes Auto (Bld) [#/Vol] Ordered By: Rufus Shen on 11-22-2021 Monocytes (Bld) [#/Vol] 0.6 10*3/uL 0.0-0.8 [facility] Monocytes/100 WBC Auto (Bld) Ordered By: Rufus Shen on 11-22-2021 Monocytes/100 WBC (Bld) 5.3 % . [facility] Neutrophils Auto (Bld) [#/Vo l]Ordered By: Rufus Shen on 11-22-2021 Neutrophils (Bld) [#/Vol] 9.0 10*3/uL 1.8-7.7 [facility] Neutrophils/100 WBC Auto (Bl d)Ordered By: Rufus Shen on 11-22-2021 Neutrophils/100 WBC (Bld) 74.2 % . [facility] No Panel InformationOrdered By: Rufus Shen on 11-22-2021 Estimated GFR () > 60 mL/Min [facility] Comment on above: GFR estimated refere nce range: According to KDOQI guidelines, <60 ml/min/1.73m2 is sufficient to diagnose a patient with chronic kidney disease. Pharmacy Creatinine Clearance (Chem N/A [facility] Platelet mean volume Auto (B ld) [Entitic vol]Ordered By: Rufus Shen on 11-22-2021 Platelet mean volume (Bld) [Entitic vol] 7.4 fL 6.3-10.7 [facility] Platelets Auto (Bld) [#/Vol] Ordered By: Rufus Shen on 11-22-2021 Platelets (Bld) [#/Vol] 543 10*3/uL 150-450 [facility] RBC Auto (Bld) [#/Vol]Ordere d By: Rufus Shen on 11-22-2021 RBC (Bld) [#/Vol] 3.74 10*6/uL 3.60-5.00 [facility] Serum or plasma anion gap de terminationOrdered By: Rufus Shen on 11-22-2021 Anion gap [Moles/Vol] 15.1 mmol/L 6.0-15.0 [facility] Serum or plasma calcium shakir urement (mass/volume)Ordered By: Rufus Shen on 11-22-2021 Calcium [Mass/Vol] 9.6 mg/dL 8.2-10.2 [facility] Serum or plasma chloride giovanna surement (moles/volume)Ordered By: Rufus Shen on 11-22-2021 Chloride [Moles/Vol] 97 mmol/L 95-114 [facility] Serum or plasma glucose shakir urement (mass/volume)Ordered By: Rufus Shen on 11-22-2021 Glucose [Mass/Vol] 105 mg/dL 70-100 [facility] Comment on above: ADA recommended refe rence rangeRandom Glucose Reference Range is dependent on time and content of last meal. Glucose of more than 200 mg/dL in a nonstressed, ambulatory subject supports the diagnosis of Diabetes Mellitus. Serum or plasma potassium me asurement (moles/volume)Ordered By: Rufus Shen on 11-22-2021 Potassium [Moles/Vol] 4.5 mmol/L 3.5-5.1 [facility] Serum or plasma sodium measu rement (moles/volume)Ordered By: Rufus Shen on 11-22-2021 Sodium [Moles/Vol] 133 mmol/L 136-146 [facility] Serum or plasma total carbon dioxide measurement (moles/volume)Ordered By: Rufus Shen on 11-22-2021 CO2 [Moles/Vol] 25.4 mmol/L 22.0-30.0 [facility] Serum or plasma urea nitroge n measurement (mass/volume)Ordered By: Rufus Shen on 11-22-2021 Urea nitrogen [Mass/Vol] 31 mg/dL 9-23 [facility] BASIC METABOLIC PANELon 10-18 Anion gap [Moles/Vol] 10 mmol/L Normal <=30 [facility] Comment on above: Performed By: #### L AB15 #### [facility] [address] [place] [address] Calcium [Mass/Vol] 9.6 mg/dL Normal 8.6-10.3 [facility] Comment on above: Performed By: #### L AB15 #### [facility] [address] [place] [address] Chloride [Moles/Vol] 101 mmol/L Normal 98-107 [facility] Comment on above: Performed By: #### L AB15 #### [facility] [address] [place] [address] CO2 [Moles/Vol] 28 mmol/L Normal 21-31 [facility] Comment on above: Performed By: #### L AB15 #### [facility] [address] [place] [address] Creatinine [Mass/Vol] 0.71 mg/dL Normal 0.60-1.20 [facility] Comment on above: Performed By: #### L AB15 #### [facility] [address] [place] [address] GLOMERULAR FILTRATION RATE ML/MIN/1.73 SQ M.PREDICTED 94.2 mL/min/1.73m*2 Normal >60.0 [facility] Comment on above: Result Comment: The [facility]???s estimated glomerular filtration rate (eGFR) will no longer include consideration of race in its calculation. The National Kidney Foundation???s eGFR Task Force developed new recommendations for the estimation of the glomerular filtration rate in the [place] They recommend immediate implementation of the new equation refit without the race variable in all laboratories because the calculation does not include race. In addition to not including race in the calculation and reporting, it included diversity in its development, and has acceptable performance characteristics and potential consequences that do not disproportionately affect any one group of individuals. Performed By: #### L AB15 #### [facility] ([facility]) [address] [place] [address] Glucose [Mass/Vol] 74 mg/dL Normal 70-100 [facility] Comment on above: Performed By: #### L AB15 #### [facility] ([facility]) [address] [place] [address] Potassium [Moles/Vol] 4.3 mmol/L Normal 3.5-5.1 [facility] Comment on above: Performed By: #### L AB15 #### [facility] ([facility]) [address] [place] [address] Sodium [Moles/Vol] 139 mmol/L Normal 136-145 [facility] Comment on above: Performed By: #### L AB15 #### [facility] ([facility]) [address] [place] [address] Urea nitrogen [Mass/Vol] 36 mg/dL High 7-25 [facility] Comment on above: Performed By: #### L AB15 #### [facility] ([facility]) [address] [place] [address] UREA NITROGEN/CREATININE (MASS RATIO) IN SER/PLAS 50.70 Normal [facility] Comment on above: Performed By: #### L AB15 #### [facility] ([facility]) [address] [place] [address] HEMATOCRITon 10-27-2021 Hematocrit (Bld) [Volume fraction] 33.5 % Low 36.0-48.0 [facility] Comment on above: Performed By: #### L AB289 #### [facility] [address] [place] [address] HEMOGLOBINon 10-27-2021 Hemoglobin (Bld) [Mass/Vol] 10.7 g/dL Low 12.0-15.0 [facility] Comment on above: Performed By: #### L AB291 #### [facility] [address] [place] [address] ARTERIAL BLOOD GAS WITH ICAo n 08-21-2021 BASE EXCESS -7 mmol/L Low -2-3 The [facility] Comment on above: Performed By: #### 8 4511 ####[facility] [facility] [place] [address], [facility] [employer] VENT Normal [facility] Comment on above: Performed By: #### 8 4511 ####[facility] [facility] [place] [address], [facility] FIO2 30 % Normal [facility] Comment on above: Performed By: #### 8 4511 ####[facility] [place] [address], [facility] HCO3 (Bld) [Moles/Vol] 17 mmol/L Low 21-28 e [facility] Comment on above: Performed By: #### 8 4511 ####[facility] [place] [address], [facility] IONIZED CALCIUM 1.20 mmol/L Normal 1.13-1.32 The [facility] Comment on above: Performed By: #### 8 4511 ####[facility] [place] [address], [facility] MIN VOLUME 6.7 Normal [facility] Comment on above: Performed By: #### 8 4511 ####[facility] [place] [address], [place] MODALITY VENT Normal [facility] Comment on above: Performed By: #### 8 4511 ####[facility] [place] [address], [facility] Oxygen (Bld) [Partial pressure] 163 mm[Hg] Critically high 83-108 The [facility] Comment on above: Performed By: #### 8 4511 ####[facility] [place] [address], [place] Oxygen saturation in Blood 97.1 % High 94.0-97.0 The [facility] Comment on above: Performed By: #### 8 4511 ####[facility] [place] [address], [place] PCO2 28 mmHg Low 35-45 The [facility] Comment on above: Performed By: #### 8 4511 ####[facility] [place] [address], [place] PEEP 8.0 CMH20 Normal [facility] Comment on above: Performed By: #### 8 4511 ####[facility] [place] [address], [place] PF RATIO 543 mmHg Normal [facility] Comment on above: Performed By: #### 8 4511 ####[facility] [place] [address], [place] pH (Bld) 7.39 [pH] Normal 7.35-7.45 The [facility] Comment on above: Performed By: #### 8 4511 ####[facility] [place] [address], [place] PRESSURE SUPPORT 8 Normal [facility] Comment on above: Performed By: #### 8 4511 ####[facility] [place] [address], [place] BASE EXCESS -7 mmol/L Low -2-3 [facility] Comment on above: Performed By: #### 8 4511 ####[facility] [place] [address], [facility] [employer] VENT Normal The [facility] Comment on above: Performed By: #### 8 4511 ####[facility] [place] [address], [place] FIO2 30 % Normal The [facility] Comment on above: Performed By: #### 8 4511 ####[facility] [place] [address], [place] HCO3 (Bld) [Moles/Vol] 17 mmol/L Low - e [facility] Comment on above: Performed By: #### 8 4511 ####[facility] [place] [address], [place] IONIZED CALCIUM 1.15 mmol/L Normal 1.13-1.32 The [facility] Comment on above: Performed By: #### 8 4511 ####[facility] [place] [address], [place] MIN VOLUME 8.2 Normal The [facility] Comment on above: Performed By: #### 8 4511 ####[facility] [place] [address], [place] MODALITY AC Normal The [facility] Comment on above: Performed By: #### 8 4511 ####[facility] [place] [address], [place] Oxygen (Bld) [Partial pressure] 158 mm[Hg] Critically high 83-108 The [facility] Comment on above: Performed By: #### 8 4511 ####[facility] [place] [address], [place] Oxygen saturation in Blood 97.6 % High 94.0-97.0 The [facility] Comment on above: Performed By: #### 8 4511 ####[facility] [place] [address], [facility] PCO2 26 mmHg Low 35-45 The [facility] Comment on above: Performed By: #### 8 4511 ####[facility] [place] [address], [facility] PEEP 8.0 CMH20 Normal The [facility] Comment on above: Performed By: #### 8 4511 ####[facility], [place] [id number] [place] [address] PF RATIO 526 mmHg Normal [facility] Comment on above: Performed By: #### 8 4511 ####[facility] [facility] [place] [id number] [place] [address] pH (Bld) 7.41 [pH] Normal 7.35-7.45 The [facility] Comment on above: Performed By: #### 8 4511 ####[facility], [place] [id number] [place] [address] Respiratory rate 12 /min Normal [facility] Comment on above: Performed By: #### 8 4511 ####[facility] [facility].[address] TIDAL VOLUME (VT) CC 450 Normal [facility] Comment on above: Performed By: #### 8 4511 ####[facility] [place], [place] [address] [place] [address] BASE EXCESS -3 mmol/L Low -2-3 [facility] Comment on above: Performed By: #### 8 4511 ####[facility] [place], [place] [address] [place] [address] DELIVERY SYSTEMS MV Normal The [facility] Comment on above: Performed By: #### 8 4511 ####[facility], [place] [address] FIO2 30 % Normal The [facility] Comment on above: Performed By: #### 8 4511 ####[facility] [place] [address], [facility] HCO3 (Bld) [Moles/Vol] 21 mmol/L Normal 21-28 Th e [facility] Comment on above: Performed By: #### 8 4511 ####[facility] IONIZED CALCIUM 1.24 mmol/L Normal 1.13-1.32 The [facility] Comment on above: Performed By: #### 8 4511 ####[facility] [facility] [address], [facility] MIN VOLUME 6.7 Normal The [facility] Comment on above: Performed By: #### 8 4511 ####[facility] [place] [address], [facility] MODALITY AC Normal The [facility] Comment on above: Performed By: #### 8 4511 ####[facility] Oxygen (Bld) [Partial pressure] 155 mm[Hg] Critically high 83-108 The [facility] Comment on above: Performed By: #### 8 4511 ####[facility] Oxygen saturation in Blood 98.3 % High 94.0-97.0 The [facility] Comment on above: Performed By: #### 8 4511 ####[facility] [place] [address], [facility] PCO2 32 mmHg Low 35-45 The [facility] Comment on above: Performed By: #### 8 4511 ####[facility] [place] [address], [facility] PEEP 8.0 CMH20 Normal The [facility] Comment on above: Performed By: #### 8 4511 ####[facility] [place] [address], [facility] pH (Bld) 7.42 [pH] Normal 7.35-7.45 The [facility] Comment on above: Performed By: #### 8 4511 ####[facility] [place] [address], [facility] Respiratory rate 12 /min Normal [facility] Comment on above: Performed By: #### 8 4511 ####[facility] [place] [address], [facility] TIDAL VOLUME (VT) CC 450 Normal The [facility] Comment on above: Performed By: #### 8 4511 ####[facility] [place] [address], [facility] BASIC METABOLIC PANELon 07-0 Calcium [Mass/Vol] 7.9 mg/dL Low 8.6-10.3 [facility] Comment on above: Order Comment: No: D o not add to previous draw Performed By: #### 6 2594 #### [facility] [address] [place] [address], [place] Chloride [Moles/Vol] 110 mmol/L High 98-107 The [facility] Comment on above: Order Comment: No: D o not add to previous draw Performed By: #### 6 2594 #### [facility] [address] [place] [address], [place] CO2 [Moles/Vol] 20 mmol/L Low 21-31 [facility] Comment on above: Order Comment: No: D o not add to previous draw Performed By: #### 6 2594 #### [facility] [address] [place] [address], [place] Creatinine [Mass/Vol] 0.77 mg/dL Normal 0.60-1.20 The [facility] Comment on above: Order Comment: No: D o not add to previous draw Performed By: #### 6 259 #### [facility] [address] [place] [address], [place] GFR/1.73 sq M.predicted among blacks MDRD (S/P/Bld) [Vol rate/Area] mL/min/{1.73_m2} Normal >60 The [facility] Comment on above: Order Comment: No: D o not add to previous draw Performed By: #### 6 2594 #### [facility] [address] [place] [address], [place] GFR/1.73 sq M.predicted among non-blacks MDRD (S/P/Bld) [Vol rate/Area] mL/min/{1.73_m2} Normal >60 The [facility] Comment on above: Order Comment: No: D o not add to previous draw Performed By: #### 6 2594 #### [facility] [address] [place] [address], [place] Glucose [Mass/Vol] 124 mg/dL High 70-100 [facility] on above: Order Comment: No: D o not add to previous draw Performed By: #### 6 2594 #### [facility] [address] [place] [address], [place] Potassium [Moles/Vol] 3.8 mmol/L Normal 3.5-5.1 The [facility] Comment on above: Order Comment: No: D o not add to previous draw Performed By: #### 6 2594 #### [facility] [address] [place] [address], [place] Sodium [Moles/Vol] 139 mmol/L Normal 136-145 [facility] Comment on above: Order Comment: No: D o not add to previous draw Performed By: #### 6 2595 #### [facility] [address] Urea nitrogen [Mass/Vol] 26 mg/dL High 7-25 The [facility] Comment on above: Order Comment: No: D o not add to previous draw Performed By: #### 6 2594 #### [facility] [address] [place] [address], [facility] CBC COMPLETE BLOOD COUNTon 0 08-21-2021 Erythrocyte distribution width (RBC) [Ratio] 18.3 % High 11.5-15.0 The [facility] Comment on above: Order Comment: No: D o not add to previous draw Nurse draw Performed By: #### 5 0608 #### [facility] [address] [place] [address], [facility] Hematocrit (Bld) [Volume fraction] 24.4 % Low 36.0-45.0 The [facility] Comment on above: Order Comment: No: D o not add to previous draw Nurse draw Performed By: #### 5 0608 #### [facility] [address] [place] [address], [facility] Hemoglobin (Bld) [Mass/Vol] 8.2 g/dL Low 12.0-15.0 The [facility] Comment on above: Order Comment: No: D o not add to previous draw Nurse draw Performed By: #### 5 0608 #### [facility] [address] [place] [id number], [facility] MCH (RBC) [Entitic mass] 30.5 pg Normal 27.0-33.0 The [facility] Comment on above: Order Comment: No: D o not add to previous draw Nurse draw Performed By: #### 5 0608 #### [facility] [address] [place] [id number], [facility] MCHC (RBC) [Mass/Vol] 33.6 g/dL Normal 32.0-35.0 The [facility] Comment on above: Order Comment: No: D o not add to previous draw Nurse draw Performed By: #### 5 0608 #### [facility] [address] [facility] [place] [address], [facility] MCV (RBC) [Entitic vol] 90.7 fL Normal 82.0-98.0 T he [facility] Comment on above: Order Comment: No: D o not add to previous draw Nurse draw Performed By: #### 5 0608 #### [facility] [address] [place] [address], [facility] Nucleated RBC/100 WBC (Bld) [Ratio] 0 % Normal 0-0 The [facility] Comment on above: Order Comment: No: D o not add to previous draw Nurse draw Performed By: #### 5 0608 #### [facility] [address] [place] [address], [facility] PLAT CNT 297 10*3/uL Normal 150-400 The [facility] Comment on above: Order Comment: No: D o not add to previous draw Nurse draw Performed By: #### 5 0608 #### [facility] [address] [place] [address], [facility] RBC (Bld) [#/Vol] 2.69 10*6/uL Low 3.80-5.00 The [facility] Comment on above: Order Comment: No: D o not add to previous draw Nurse draw Performed By: #### 5 0608 #### [facility] [address] [facility] [address], [facility] WBC (Bld) [#/Vol] 11.33 10*3/uL High 4.00-10.60 [facility] Comment on above: Order Comment: No: D o not add to previous draw Nurse draw Performed By: #### 5 0608 #### [facility] [address] [place] [address], [facility] CT BRAIN WO CONTRASTon 08-21 CT BRAIN WO CONTRAST [facility] Department of Radiology [address] [place] [address] [phone] Patient Name: MEG GEORGES : 1965 Sex: F Age: Race: White Pt. Location: [place] [address] Patient Status: I Ordered Date: 08/21/2021 12:50:00 PM Completed Date: 08/21/2021 01:39 PM Requesting Provider: FIONA PRIEST Attending Provider: JERRY POZO Report Copy To: Signs & Symptoms: Other History: See Comments Comments: Other, clear drainage from nose, r/o pneumocephalus, Exam: CT BRAIN WO CONTRAST CT BRAIN WO CONTRAST 08/21/2021 1:39 PM TECHNOLOGIST COMMENTS: bleeding ulcer nasopharynx, clear drainage from nose. QUESTION FOR THE RADIOLOGIST: Other, clear drainage from nose, r/o pneumocephalus, PROTOCOL: Axial CT images of the head were obtained without IV contrast. TECHNIQUE: Multidetector CT axial slices of the brain without IV contrast. Multiplanar reformats were performed and viewed on a separate workstation and reviewed to further define anatomy and possible pathology. All CT scans at this facility use dose modulation, iterative reconstruction, and/or weight based dosing when appropriate to reduce radiation dose to as low as reasonably achievable COMPARISON: 08/15/2021 FINDINGS: No intracranial hemorrhage, midline shift, mass effect, or evidence of large vessel ischemia/infarct. Multifocal areas of low-attenuation throughout the white matter of both cerebral hemispheres, nonspecific but most likely sequela of chronic small vessel ischemia. The ventricular system is nondilated. The brainstem is unremarkable appearing. Cerebellum is unremarkable. Bilateral lens replacement. Infratemporal soft tissues are unremarkable. Mixed attenuation products are noted within the bilateral maxillary sinuses, sphenoid sinus, and ethmoid air cells. There is redemonstrated sinonasal mucosal thickening involving the sinuses diffusely. Apparent fracture of the right posterior arch of C1. C2 fracture also noted as detailed in CT facial bone report. Apparent soft tissue edema in the suboccipital/nuchal soft tissues. IMPRESSION: * Diffuse sinonasal mucosal thickening with interval layering of hyperdense collections in the maxillary sinuses and sphenoid sinus. Findings may indicate acute/acute on chronic sinusitis with proteinaceous secretions versus layering blood products within the sinuses. Clinical correlation is recommended. * Which appears to be age-indeterminate partially visualized fracture of the posterior arch of C1 with distraction. However, as there is no other fracture identified of C1, this could also represent a congenital defect of posterior arch of C1 with irregularity of the margins due to an infectious or inflammatory process. Approved by:Ariel Fuentes08/21/2021 4:51 PM. I, Martinez Hoover,have reviewed the image(s) and agree with the findings in this report. Electronically signed: Martinez Hoover. Transcribed by: [email or web address], User Resident: ARIEL SOLORZANO Electronically Signed by: MARTINEZ HOOVER @ 08/21/2021 05:07 PM I personally read this/these film(s) with this resident Normal The [facility] Comment on above: Order Comment: Check NG Tube Position CT FACIAL BONES W CONTRASTon 08-21-2021 CT FACIAL BONES W CONTRAST [facility] Department of Radiology [address] [place] [id number] Patient Name: MEG GEORGES : 1965 Sex: F Age: Race: White Pt. Location: [place] [address] Patient Status: I Ordered Date: 08/21/2021 12:50:00 PM Completed Date: 08/21/2021 01:39 PM Requesting Provider: FIONA PRIEST Attending Provider: JERRY POZO Report Copy To: Signs & Symptoms: Other History: See Comments Comments: Other, poss csf rhinorrhea, r/o bony destruction, had bleeding ulcer nasopharynx Exam: CT FACIAL BONES W CONTRAST Addendum Begins In addition to the C2 fracture, there is a distracted defect of the posterior arch of C1 which could be a fracture given irregular margins. However, there is no additional fracture of the C1 arch and this could represent a congenital defect with irregularity of the margin secondary to infection/inflammatio n given the posterior fluid collection in this region. Electronically signed: Martinez Hoover. Addendum Ends CT FACIAL BONES W CONTRAST 08/21/2021 1:39 PM CLINICAL INDICATIONS: Bleeding ulcer of nasopharynx, clear drainage from nose, rule out bony destruction. TECHNOLOGIST COMMENTS: bleeding ulcer nasopharynx, clear drainage from nose. QUESTIONS FOR RADIOLOGIST: Other, poss csf rhinorrhea, r/o bony destruction, had bleeding ulcer nasopharynx PROTOCOL: Axial CT images of the facial bones were obtained with IV contrast. CONTRAST: Contrast: OMNIPAQUE 350 (LOCM), 100 milliliter, Intravenous TECHNIQUE: Multidetector CT axial slices of the facial bones were obtainedwith IV contrast. Helical, sagittal, coronal, and 3-D reconstructions were performed and viewed on a separate workstation and reviewed to further define anatomy and possible pathology. All CT scans at this facility use dose modulation, iterative reconstruction, and/or weight based dosing when appropriate to reduce radiation dose to as low as reasonably achievable. Findings: There is a chronic type II odontoid fracture with anterior apex angulation and mild disc space at the fracture site. Multifocal areas of bone resorption/cystic change noted at the fracture site. In addition, there is anterior subluxation of the lateral masses of C1 relative to the occipital condyles with severe joint space narrowing and focal areas of bone destruction with cortical loss the craniocervical junction bilaterally. There is mild prevertebral soft tissue swelling this region. Focal areas of bone destruction/resorptio n of the inferior clivus noted. There is severe central stenosis at C1 to. There is somewhat tubular posterior fluid collection posterior to the C1-2 level and the midline paraspinal soft tissues measuring approximately 1.9 x 1.7 x 3 cm which could be an abscess. No focal area of bone destruction identified of the facial bones. There is extensive mucosal thickening with inspissated secretions versus fungal infection throughout the paranasal sinuses, as well as partial opacification of the middle ear bilaterally and at the bilateral mastoid air cells. Secretions are noted throughout the visualized nasopharynx and oropharynx. IMPRESSION: 1. 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 2. Findings compatible with septic arthritis versus sequela of inflammatory arthropathy with severe joint space narrowing and areas of bone destruction at the craniocervical junction bilaterally. In addition, there is a posterior fluid collection at the midline in the soft tissues at C1 to which could be an abscess. Mild prevertebral soft tissue swelling. In addition, focal bone destruction of the inferior aspect of the clivus. No discrete mass. 3. No discrete abscess in the facial soft tissues, and no bone destruction of the facial soft tissues. 4. Secretions throughout the oropharynx and nasopharynx. Reported bleeding ulcer of the nasopharynx is not clearly identified on this exam. 5. Extensive sinus opacification as detailed above. Electronically signed: Martinez Hoover. Transcribed by: [email or web address], User Resident: Electronically Signed by: MARTINEZ HOOVER @ 08/21/2021 05:09 PM Normal The [facility] Comment on above: Order Comment: R/O A telectasis LACTATE BLOODon 08-21-2021 Lactate [Moles/Vol] 0.6 mmol/L Normal .5-2.2 The [facility] Comment on above: Order Comment: No: D o not add to previous draw Performed By: #### 1 0054 ####[facility] [place] [address], [facility] LIVER BATTERYon 08-21-2021 Albumin [Mass/Vol] 2.3 g/dL Low 3.5-5.7 [facility] Comment [facility] above: Order Comment: No: D o not add to previous draw Performed By: #### 6 2594 #### [facility] [address] [place] [address], [place] ALKALINE PHOSPH 172 IU/L High 34-104 The [facility] Comment on above: Order Comment: No: D o not add to previous draw Performed By: #### 6 2594 #### [facility] [address] [place] [address], [place] ALT [Catalytic activity/Vol] 9 U/L Normal 7-52 The [facility] Comment on above: Order Comment: No: D o not add to previous draw Performed By: #### 6 2594 #### [facility] [address] [place] [address], [place] AST [Catalytic activity/Vol] 12 U/L Low 13-39 The [facility] Comment on above: Order Comment: No: D o not add to previous draw Performed By: #### 6 2594 #### [facility] [address] [place] [address], [place] Bilirubin [Mass/Vol] 0.4 mg/dL Normal 0.3-1.0 The [facility] Comment on above: Order Comment: No: D o not add to previous draw Performed By: #### 6 2594 #### [facility] [address] [place] [address], [place] Bilirubin.direct [Mass/Vol] 0.1 mg/dL Normal 0.0-0.2 The [facility] Comment on above: Order Comment: No: D o not add to previous draw Performed By: #### 6 2594 #### [facility] [address] [place] [address], [place] Protein [Mass/Vol] 5.7 g/dL Low 6.0-8.3 The [facility] Comment on above: Order Comment: No: D o not add to previous draw Performed By: #### 6 2594 #### [facility] [address] MAGNESIUM BLOODon 08-21-2021 Magnesium [Mass/Vol] 2.1 mg/dL Normal 1.9-2.7 The [facility] Comment on above: Order Comment: No: D o not add to previous draw Performed By: #### 6 2594 #### [facility] [address] Operative Reporton 2 Operative Report MR#: [id number] I [facility] Pt. Name: Meg Georges Room #: [id number] [id number] Discharge Date: Birthdate: 1965 OPERATIVE REPORT DATE OF SURGERY: 08/21/2021 SURGEON: Jerry Pozo MD Operative report: Percutaneous endoscopic gastrostomy tube placement Location: [facility] main OR Date: 08/21/2021 Preoperative diagnosis: Oropharyngeal dysphagia, nasopharyngeal erosion Postoperative diagnosis: Same Operation performed: Percutaneous endoscopic gastrostomy tube placement Surgeon: Jerry Pozo MD Kiln Fireman: Garfield Bowen MD ( resident PGY 5) Estimated blood loss: 2 mL Wound classification: Clean contaminated Tubes and drains: 20 Lao gastrostomy tube pull type Local anesthetic: 1% lidocaine plain, 4 mL used for subcutaneous infiltration Anesthesia: General anesthesia Indication: This is a 56-year-old woman who had a prolonged hospitalization at [facility] in [place] over the last several months for COVID-related pneumonia and subsequent bacterial pneumonia complications. Patient had chronic hypoxemic respiratory failure requiring placement of tracheostomy approximately 2 weeks ago prior to transfer to LTAC. Patient presented to [facility] 1 day ago for acute bleeding seen from the oral and nasopharynx. In the emergency department patient required multiple units of blood transfusion due to hypotension a large amount of blood loss witnessed. Patient underwent emergent operative exploration of the tracheostomy site, bronchoscopy, and examination of the nasopharynx. There were no acute bleeding found at the tracheostomy track and thus the tracheostomy was replaced. Patient was found to have a pulsatile source of bleeding in the nasopharynx most likely secondary to erosion from enteral flex feeding tube. Due to persistent need for enteral access and complication from nasoenteric feeding tube, decision was made to proceed with a gastrostomy tube for feeding access. Details of the procedure: The patient was transferred directly from the medical ICU unit to the operating room. Patient was placed on the surgical table in a supine position with both arms out. Mechanical ventilation was resumed on the ventilator and general anesthesia was induced without complications. Safety straps and SCDs were applied. Abdominal surgical site was prepped with wet Betadine. Preprocedure safety timeout was performed. The gastroscope was introduced via the oropharynx and then into the esophagus followed by stomach. Esophageal mucosa overall appeared normal with no ulceration seen. Gastric mucosa also appeared normal with no bleeding or ulcers. The gastric lumen was insufflated. A location at the left upper quadrant abdomen was palpated and demonstrated corresponding indentation from the gastric lumen side. Local anesthetic was infiltrated subcutaneously. A 5 mm skin incision was made using 11 blade scalpel. The introducer needle was placed into the stomach lumen while the syringe was pulled back, air was introduced into the syringe once the needle tip entered the gastric lumen. The needle was grasped with a endoscopic snare, wire was introduced through the introducer needle, the wire was then grasped with the snare. The endoscope and wire were both withdrawn from the oropharynx. The guidewire was attached to the feeding tube assembly. The guidewire was pulled from the abdominal side until the feeding tube sits against the abdominal wall. Depth of the tube was 2.5 cm at skin level. The gastroscope was once again introduced into the gastric lumen, the feeding tube wafer was position against the abdominal wall. Feeding tube was irrigated with 30 cc of saline irrigation. Gastric lumen was desufflated and scope was withdrawn. Nasogastric tube was removed. Triple antibiotic ointment was applied over the feeding tube site. Drain sponge was applied. Tube clamp and adapter assembly was applied. The patient was weaned from general anesthesia without complications and continued on mechanical ventilation through the tracheostomy. Patient was transferred back to the ICU unit in stable condition. Complications: None Electronically Signed by: Jerry Pozo MD 08/21/2021 11:25 A Jerry Pozo MD Date Dict: 08/21/2021/11:17 A/Jerry Pozo MD Date Trans: 08/21/2021 11:17 A/ LAUREN_JN:[id number] cc: Johny Beckman M.D. [address] [facility] Emergency Medicine [facility] [address] [address] [facility] [address] Normal The [facility] PHOSPHORUS BLOODon 2 Phosphate [Mass/Vol] 2.3 mg/dL Low 2.5-5.0 The [facility] Comment on above: Order Comment: No: D o not add to previous draw Performed By: #### 6 2594 #### [facility] [address] [place] [address], [facility] POC GLUCOSE LABon 08-21-2021 Glucose [Mass/Vol] 138 mg/dL High 70-100 [facility] Comment on above: Performed By: #### 8 5499 #### [facility] [address] [facility] [place] [address], [place] Glucose [Mass/Vol] 164 mg/dL High 70-100 The Un [facility] Comment on above: Performed By: #### 8 5499 ####[facility] [facility] [address], [facility] Glucose [Mass/Vol] 143 mg/dL High 70-100 [facility] Comment on above: Order Comment: Bleed ing s/p recent tracheostomy Performed By: #### 8 5499 ####[facility] [facility] [place] [address], [place] Glucose [Mass/Vol] 124 mg/dL High 70-100 The [facility] Comment on above: Performed By: #### 8 5499 ####[facility] [facility] [place] [address], [place] PORTABLE CHEST 1 VIEWon PORTABLE CHEST 1 VIEW [facility] Department of Radiology [address] [place] [address] Patient Name: MEG GEORGES : 1965 Sex: F Age: Race: White Pt. Location: [place] [address] Patient Status: I Ordered Date: 08/21/2021 5:00:00 AM Completed Date: 08/21/2021 07:09 AM Requesting Provider: WILLEM SERRATO Attending Provider: JERRY POZO Report Copy To: Signs & Symptoms: Pneumonia History: See Comments Comments: R/O Atelectasis Exam: PORTABLE CHEST 1 VIEW PORTABLE CHEST 1 VIEW 08/21/2021 7:09 AM CLINICAL INDICATIONS: Pneumonia TECHNOLOGIST COMMENTS: SOB QUESTION FOR THE RADIOLOGIST: R/O Atelectasis PROTOCOL: AP(PA) view was obtained. COMPARISON: August 20, 2021. FINDINGS: Tracheostomy tube and NG tube remain in place. Airspace disease medially in the base of the left lower lobe remains. The lungs are otherwise clear. No pneumothorax. The heart and mediastinum appear within normal limits. IMPRESSION: Focal airspace disease in the left cardiophrenic angle unchanged. Electronically signed: Yaritza Young. Transcribed by: [email or web address], User Resident: Electronically Signed by: YARITZA YOUNG @ 08/21/2021 07:38 AM Normal The [facility] Comment on above: Order Comment: R/O A telectasis *BLOOD CULTUREon 08-20-2021 *BLOOD CULTURE Clinical Report: (D) Specimen: BLOOD CULTURE Collected: 08/20/2021 00:47 Status: Final Last Updated: 08/25/2021 06:53 (1) RIGHT AC @ 0045. CULT RES (Final) No Growth Day 5 Normal [facility] Comment on above: Order Comment: RIGHT AC @ 0045. Performed By: #### 3 0313 #### [facility] [address] *BLOOD CULTURE Clinical Report: (D) Specimen: BLOOD CULTURE Collected: 08/20/2021 00:47 Status: Final Last Updated: 08/25/2021 06:53 (1) LEFT AC @ 0040. CULT RES (Final) No Growth Day 5 Normal [facility] Comment on above: Order Comment: Bleed ing s/p recent tracheostomy Performed By: #### 3 0313 ####[facility] APTTon 08-20-2021 aPTT Coag (Bld) [Time] 58.3 s High 25.0-35.0 Th e [facility] Comment on above: Result Comment: ALL RESULTS MUST BE INTERPRETED WITH RESPECT TO BLOOD DRAWING ARTIFACT OR DILUTION ERROR OF ANTICOAGULANT AT THE TIME OF SAMPLING. THE APTT SHOULD NOT BE USED TO MONITOR UNFRACTIONATED HEPARIN THERAPY, THIS LABORATORY NO LONGER HAS AN ESTABLISHED THERAPEUTIC RANGE BASED ON THE APTT. IT IS RECOMMENDED THAT THE [facility] - HEPARIN ASSAY (ANTI-XA ACTIVITY) BE USED FOR THIS PURPOSE. Performed By: #### 6 2594 #### [facility] [address] [place] [address], [facility] ARTERIAL BLOOD GAS WITH ICAo n 08-20-2021 BASE EXCESS -2 mmol/L Normal -2-3 [facility] Comment on above: Order Comment: RESUL TS CHECKED AND CALLED. ACCURATELY READ BACK BY DR CALI Performed By: #### 8 4511 ####[facility] [place] [address], [facility] [employer] MV Normal [facility] Comment on above: Order Comment: RESUL TS CHECKED AND CALLED. ACCURATELY READ BACK BY DR CALI Performed By: #### 8 4511 ####[place] [address] [address] FIO2 50 % Normal [facility] Comment on above: Order Comment: RESUL TS CHECKED AND CALLED. ACCURATELY READ BACK BY DR CALI Performed By: #### 8 4511 ####[place] [address] [address] HCO3 (Bld) [Moles/Vol] 20 mmol/L Low 21-28 Th e [facility] Comment on above: Order Comment: RESUL TS CHECKED AND CALLED. ACCURATELY READ BACK BY DR CALI Performed By: #### 8 4511 ####[address] IONIZED CALCIUM 1.09 mmol/L Low 1.13-1.32 The [facility] Comment on above: Order Comment: RESUL TS CHECKED AND CALLED. ACCURATELY READ BACK BY DR CALI Performed By: #### 8 4511 ####[address] MIN VOLUME 8.9 Normal The [facility] Comment on above: Order Comment: RESUL TS CHECKED AND CALLED. ACCURATELY READ BACK BY DR CALI Performed By: #### 8 4511 ####[place] [address] [address] MODALITY AC Normal The [facility] Comment on above: Order Comment: RESUL TS CHECKED AND CALLED. ACCURATELY READ BACK BY DR CALI Performed By: #### 8 4511 ####[address] Oxygen (Bld) [Partial pressure] 239 mm[Hg] Critically high 83-108 The [facility] Comment on above: Order Comment: RESUL TS CHECKED AND CALLED. ACCURATELY READ BACK BY DR CALI Performed By: #### 8 4511 ####[facility] Oxygen saturation in Blood 97.6 % High 94.0-97.0 [facility] Comment on above: Order Comment: RESUL TS CHECKED AND CALLED. ACCURATELY READ BACK BY DR CALI Performed By: #### 8 4511 ####[facility] [place] [address], [facility] PCO2 24 mmHg Critically low 35-45 The [facility] Comment on above: Order Comment: RESUL TS CHECKED AND CALLED. ACCURATELY READ BACK BY DR CALI Performed By: #### 8 4511 ####[facility] [facility] PEEP 8.0 CMH20 Normal The [facility] Comment on above: Order Comment: RESUL TS CHECKED AND CALLED. ACCURATELY READ BACK BY DR CALI Performed By: #### 8 4511 ####[facility] [facility] pH (Bld) 7.52 [pH] High 7.35-7.45 The [facility] Comment on above: Order Comment: RESUL TS CHECKED AND CALLED. ACCURATELY READ BACK BY DR CALI Performed By: #### 8 4511 ####[facility] [facility].[address] Respiratory rate 14 /min Normal The [facility] Comment on above: Order Comment: RESUL TS CHECKED AND CALLED. ACCURATELY READ BACK BY DR CALI Performed By: #### 8 4511 ####[facility] [facility].[address] TIDAL VOLUME (VT) CC 550 Normal [facility] Comment on above: Order Comment: RESUL TS CHECKED AND CALLED. ACCURATELY READ BACK BY DR CALI Performed By: #### 8 4511 ####[facility] BASIC METABOLIC PANELon 07-0 Calcium [Mass/Vol] 6.2 mg/dL Critically low 8.6-10.3 Th e [facility] Comment on above: Order Comment: Check NG Tube Position Performed By: #### 1 0070, 76832, 20095, 59926 ####[facility] [place] [address], [facility] Chloride [Moles/Vol] 112 mmol/L High 98-107 The [facility] Comment on above: Order Comment: Check NG Tube Position Performed By: #### 1 0070, 85478, 02372, 23348 ####[facility] [place] [address], [facility] CO2 [Moles/Vol] 17 mmol/L Low 21-31 The [facility] Comment on above: Order Comment: Check NG Tube Position Performed By: #### 1 0070, 42686, 23745, 62272 ####[facility] [place] [address], [facility] Creatinine [Mass/Vol] 0.80 mg/dL Normal 0.60-1.20 The [facility] Comment on above: Order Comment: Check NG Tube Position Performed By: #### 1 0070, 07333, 26362, 18780 ####[facility] [place] [address], [place] GFR/1.73 sq M.predicted among blacks MDRD (S/P/Bld) [Vol rate/Area] mL/min/{1.73_m2} Normal >60 The [facility] Comment on above: Order Comment: Check NG Tube Position Performed By: #### 1 0070, 14337, 44753, 08841 ####[facility] [place] [address], [place] GFR/1.73 sq M.predicted among non-blacks MDRD (S/P/Bld) [Vol rate/Area] mL/min/{1.73_m2} Normal >60 The [facility] Comment on above: Order Comment: Check NG Tube Position Performed By: #### 1 0070, 90793, 81576, 26910 ####[facility] [facility] [place] [place] [address], [facility] Glucose [Mass/Vol] 123 mg/dL High 70-100 The [facility] Comment on above: Order Comment: Check NG Tube Position Performed By: #### 1 0070, 17992, 30509, 94893 ####[facility] [facility] [place] [place] [address], [facility] Potassium [Moles/Vol] 3.1 mmol/L Low 3.5-5.1 The [facility] Comment on above: Order Comment: Check NG Tube Position Performed By: #### 1 0070, 47768, 25775, 96566 ####[facility] [facility] Sodium [Moles/Vol] 137 mmol/L Normal 136-145 The [facility] Comment on above: Order Comment: Check NG Tube Position Performed By: #### 1 0070, 66389, 40278, 65502 ####[facility] [facility] Urea nitrogen [Mass/Vol] 31 mg/dL High 7-25 The [facility] Comment on above: Order Comment: Check NG Tube Position Performed By: #### 1 0070, 45562, 17114, 52329 ####[facility] [facility] [place] [address], [facility] CBC W/DIFFon 08-20-2021 ABS IMM GRANS 0.1 10*3/uL Normal 0.0-0.2 The [facility] Comment on above: Order Comment: Bleed ing s/p recent tracheostomy Performed By: #### 5 0103 ####[facility] [place] [address], [facility] ABS NEUTROPHILS 9.2 10*3/uL High 1.6-7.6 The [facility] Comment on above: Order Comment: Bleed ing s/p recent tracheostomy Performed By: #### 5 0103 ####[facility] Basophils (Bld) [#/Vol] 0.0 10*3/uL Normal 0.0-0.2 The [facility] Comment on above: Order Comment: Bleed ing s/p recent tracheostomy Performed By: #### 5 0103 ####[facility] Basophils/100 WBC (Bld) 0.3 % Normal 0.0-1.0 T [facility] Comment on above: Order Comment: Bleed ing s/p recent tracheostomy Performed By: #### 5 0103 ####[facility] Eosinophils (Bld) [#/Vol] 0.1 10*3/uL Normal 0.0-0.5 The [facility] Comment on above: Order Comment: Bleed ing s/p recent tracheostomy Performed By: #### 5 0103 ####[facility] Eosinophils/100 WBC (Bld) 0.4 % Normal 0.0-6.0 The [facility] Comment on above: Order Comment: Bleed ing s/p recent tracheostomy Performed By: #### 5 0103 ####[facility] Erythrocyte distribution width (RBC) [Ratio] 17.2 % High 11.5-15.0 The [facility] Comment on above: Order Comment: Bleed ing s/p recent tracheostomy Performed By: #### 5 0103 ####[facility]3000 [facility] Hematocrit (Bld) [Volume fraction] 23.9 % Low 36.0-45.0 The [facility] Comment on above: Order Comment: Bleed ing s/p recent tracheostomy Performed By: #### 5 0103 ####[facility] Hemoglobin (Bld) [Mass/Vol] 8.1 g/dL Low 12.0-15.0 The [facility] Comment on above: Order Comment: Bleed ing s/p recent tracheostomy Performed By: #### 5 0103 ####[facility] IMMATURE GRANS 0.6 % Normal 0.0-1.0 The [facility] Comment on above: Order Comment: Bleed ing s/p recent tracheostomy Performed By: #### 5 0103 ####[facility] Lymphocytes (Bld) [#/Vol] 3.3 10*3/uL Normal 1.2-4.0 The [facility] Comment on above: Order Comment: Bleed ing s/p recent tracheostomy Performed By: #### 5 0103 ####[facility] Lymphocytes/100 WBC (Bld) 24.4 % Normal 20.0-45.0 The [facility] Comment on above: Order Comment: Bleed ing s/p recent tracheostomy Performed By: #### 5 0103 ####[facility] MCH (RBC) [Entitic mass] 30.6 pg Normal 27.0-33.0 The [facility] Comment on above: Order Comment: Bleed ing s/p recent tracheostomy Performed By: #### 5 0103 ####[facility] MCHC (RBC) [Mass/Vol] 33.9 g/dL Normal 32.0-35.0 The [facility] Comment on above: Order Comment: Bleed ing s/p recent tracheostomy Performed By: #### 5 0103 ####[facility] MCV (RBC) [Entitic vol] 90.2 fL Normal 82.0-98.0 T [facility] Comment on above: Order Comment: Bleed ing s/p recent tracheostomy Performed By: #### 5 0103 ####[facility] Monocytes (Bld) [#/Vol] 1.0 10*3/uL Normal 0.1-1.0 The [facility] Comment on above: Order Comment: Bleed ing s/p recent tracheostomy Performed By: #### 5 0103 ####[facility] MONOS 7.2 % Normal 5.0-12.0 The [facility] Comment on above: Order Comment: Bleed ing s/p recent tracheostomy Performed By: #### 5 0103 ####[facility] Neutrophils/100 WBC (Bld) 67.1 % Normal 40.0-72.0 The [facility] Comment on above: Order Comment: Bleed ing s/p recent tracheostomy Performed By: #### 5 0103 ####[facility] Nucleated RBC/100 WBC (Bld) [Ratio] 0 % Normal 0-0 The [facility] Comment on above: Order Comment: Bleed ing s/p recent tracheostomy Performed By: #### 5 0103 ####[facility] PLAT CNT 328 10*3/uL Normal 150-400 The [facility] Comment on above: Order Comment: Bleed ing s/p recent tracheostomy Performed By: #### 5 0103 ####[facility]3000 [facility] [place] [address], [facility] RBC (Bld) [#/Vol] 2.65 10*6/uL Low 3.80-5.00 The [facility] Comment on above: Order Comment: Bleed ing s/p recent tracheostomy Performed By: #### 5 0103 ####[facility]3000 [facility].[address] WBC (Bld) [#/Vol] 13.67 10*3/uL High 4.00-10.60 [facility] Comment on above: Order Comment: Bleed ing s/p recent tracheostomy Performed By: #### 5 0103 ####[facility]3000 [facility].[address] ABS IMM GRANS 0.2 10*3/uL Normal 0.0-0.2 The [facility] Comment on above: Performed By: #### 5 0103 ####[facility]3000 [facility].[address] ABS NEUTROPHILS 18.9 10*3/uL High 1.6-7.6 The [facility] Comment on above: Performed By: #### 5 0103 ####[facility] [facility] [place] [address], [facility] Basophils (Bld) [#/Vol] 0.1 10*3/uL Normal 0.0-0.2 The [facility] Comment on above: Performed By: #### 5 3 ####[facility]3000 [facility] [place] [address], [facility] Basophils/100 WBC (Bld) 0.4 % Normal 0.0-1.0 T jj [facility] Comment on above: Performed By: #### 5 0103 ####[facility]3000 [facility].[address] Eosinophils (Bld) [#/Vol] 0.4 10*3/uL Normal 0.0-0.5 The [facility] Comment on above: Performed By: #### 5 0103 ####[facility]3000 [facility].[address] Eosinophils/100 WBC (Bld) 1.7 % Normal 0.0-6.0 The [facility] Comment on above: Performed By: #### 5 3 ####[place] [id number] [address] Erythrocyte distribution width (RBC) [Ratio] 17.4 % High 11.5-15.0 The [facility] Comment on above: Performed By: #### 3 ####[facility] Hematocrit (Bld) [Volume fraction] 25.5 % Low 36.0-45.0 The [facility] Comment on above: Performed By: #### 5 3 ####[facility] Hemoglobin (Bld) [Mass/Vol] 8.1 g/dL Low 12.0-15.0 The [facility] Comment on above: Performed By: #### 3 ####[facility] IMMATURE GRANS 0.8 % Normal 0.0-1.0 The [facility] Comment on above: Performed By: #### 102 ####[address] Lymphocytes (Bld) [#/Vol] 2.8 10*3/uL Normal 1.2-4.0 The [facility] Comment on above: Performed By: #### 5 0103 ####[facility]3000 [facility] [place] [address], [facility] Lymphocytes/100 WBC (Bld) 11.7 % Low 20.0-45.0 The [facility] Comment on above: Performed By: #### 5 3 ####[facility] [facility] [place] [address], [facility] MCH (RBC) [Entitic mass] 31.5 pg Normal 27.0-33.0 The [facility] Comment on above: Performed By: #### 5 3 ####[facility]3000 [facility].[address] MCHC (RBC) [Mass/Vol] 31.8 g/dL Low 32.0-35.0 The [facility] Comment on above: Performed By: #### 5 0103 ####[facility] [facility] [place] [address], [facility] MCV (RBC) [Entitic vol] 99.2 fL High 82.0-98.0 T [facility] Comment on above: Performed By: #### 5 3 ####[facility] [facility] [place] [address], [facility] Monocytes (Bld) [#/Vol] 1.5 10*3/uL High 0.1-1.0 The [facility] Comment on above: Performed By: #### 5 3 ####[facility] [place] [address], [facility] MONOS 6.2 % Normal 5.0-12.0 The [facility] Comment on above: Performed By: #### 5 3 ####[facility] [place] [address], [facility] Neutrophils/100 WBC (Bld) 79.2 % High 40.0-72.0 The [facility] Comment on above: Performed By: #### 5 0103 ####[facility]3000 [facility].[address] Nucleated RBC/100 WBC (Bld) [Ratio] 0 % Normal 0-0 The [facility] Comment on above: Performed By: #### 5 0103 ####[facility]3000 [facility] [place] [address], [facility] PLAT CNT 538 10*3/uL High 150-400 [facility] Comment on above: Performed By: #### 5 0103 ####[facility]3000 [facility].[address] RBC (Bld) [#/Vol] 2.57 10*6/uL Low 3.80-5.00 [facility] Comment on above: Performed By: #### 5 0103 ####[facility]3000 [facility].[address] WBC (Bld) [#/Vol] 23.85 10*3/uL High 4.00-10.60 [facility] Comment on above: Performed By: #### 5 0103 ####[facility]3000 [facility].[address] COMP METABOLIC PANELon 08-20 Albumin [Mass/Vol] 2.5 g/dL Low 3.5-5.7 [facility] Comment on above: Performed By: #### 3 5200, 45094 ####[facility]3000 [facility].[address] ALKALINE PHOSPH 314 IU/L High 34-104 [facility] Comment on above: Performed By: #### 3 5200, 21480 ####[facility]3000 [facility].[address] ALT [Catalytic activity/Vol] 14 U/L Normal 7-52 The [facility] Comment on above: Performed By: #### 3 5199, 88469 ####[facility] [place] [address], [place] AST [Catalytic activity/Vol] 21 U/L Normal 13-39 The [facility] Comment on above: Performed By: #### 3 5199, 57045 ####[facility] [place] [address], [place] Bilirubin [Mass/Vol] 0.6 mg/dL Normal 0.3-1.0 The [facility] Comment on above: Performed By: #### 3 5199, 63698 ####[facility] [place] [address], [place] Calcium [Mass/Vol] 8.0 mg/dL Low 8.6-10.3 [facility] Comment on above: Performed By: #### 3 5199, 58478 ####[facility] [place] [address], [place] Chloride [Moles/Vol] 101 mmol/L Normal 98-107 The [facility] Comment on above: Performed By: #### 3 5199, 83849 ####[facility] [place] [address], [place] CO2 [Moles/Vol] 21 mmol/L Normal 21-31 [facility] Comment on above: Performed By: #### 3 5199, 32198 ####[facility] [place] [address], [place] Creatinine [Mass/Vol] 0.99 mg/dL Normal 0.60-1.20 The [facility] Comment on above: Performed By: #### 3 5199, 16707 ####[facility] [place] [address], [place] eGFR- non- 58 ml/min/1.73sq m Abnormal >60 The [facility] Comment on above: Performed By: #### 3 5199, 41141 ####[facility] [place] [address], [facility] GFR/1.73 sq M.predicted among blacks MDRD (S/P/Bld) [Vol rate/Area] mL/min/{1.73_m2} Normal >60 [facility] Comment on above: Performed By: #### 3 5199, 16127 ####[facility] [place] [address], [facility] Glucose [Mass/Vol] 280 mg/dL High 70-100 The [facility] Comment on above: Performed By: #### 3 5199, 55314 ####[facility] [place] [address], [place] Potassium [Moles/Vol] 4.1 mmol/L Normal 3.5-5.1 [facility] Comment on above: Performed By: #### 3 5199, 25232 ####[facility] [place] [address], [facility] Protein [Mass/Vol] 6.5 g/dL Normal 6.0-8.3 The [facility] Comment on above: Performed By: #### 3 5199, 92138 ####[facility] [place] [address], [place] Sodium [Moles/Vol] 134 mmol/L Low 136-145 [facility] Comment on above: Performed By: #### 3 5199, 91848 ####[facility] [place] [address], [place] Urea nitrogen [Mass/Vol] 32 mg/dL High 7-25 The [facility] Comment on above: Performed By: #### 3 5199, 33322 ####[facility] CTA CHESTon 08-20-2021 CTA CHEST [facility] Department of Radiology [address] [place] [address] Patient Name: MEG GEORGES : 1965 Sex: F Age: Race: White Pt. Location: [facility] Patient Status: I Ordered Date: 08/19/2021 11:15:00 PM Completed Date: 08/20/2021 12:17 AM Requesting Provider: DAVID VALIENTE Attending Provider: JOHNY BECKMAN Report Copy To: Signs & Symptoms: Other History: See Comments Comments: Other, Bleeding s/p recent tracheostomy Exam: CTA CHEST CTA CHEST HISTORY: Bleeding status post tracheostomy COMPARISON: None TECHNIQUE: Contiguous axial images are obtained of the Chest with 75 mL of Omnipaque 350 IV contrast. Coronal and sagittal reconstructions were performed and reviewed. Sagittal and coronal reformatted images with 3-D Maximum intensity projection reconstructions constructed under concurrent physician supervision on a separate workstation. Automatic exposure control was utilized. All CT scans at this facility use dose modulation, iterative reconstruction, and/or weight based dosing when appropriate to reduce radiation dose to as low as reasonably achievable. FINDINGS: The visualized thyroid is unremarkable. Mild soft tissue swelling and inflammatory changes around the tracheostomy, as expected postoperative setting. No cardiomegaly or pericardial effusion. The aorta is nonaneurysmal and without dissection. Mild coronary artery calcifications. No enlarged mediastinal or hilar lymph nodes. No filling defects of the main pulmonary arteries, segmental branches, or major subsegmental branches to suggest emboli. Main pulmonary artery size is within normal limits. Tracheostomy in place with tip approximately 1.4 cm above the yudith. The airway above the tracheostomy is filled with fluid/secretions of approximately 55-60 Hounsfield units. Otherwise, the airways are patent without filling defect. No pneumothorax or pleural effusion. Atelectasis in the right lung base. More focal consolidation in the left lung base. No acute osseous abnormality. Degenerative changes of the visualized spine. No adrenal mass or splenomegaly. IMPRESSION: 1. Fluid/secretions with attenuation above that of simple fluid is noted within the airway superior to the tracheostomy, which may be postoperative in nature. The tracheostomy and distal airways are patent. 2. Pneumonia versus focal atelectasis in the medial left lung base. 3. No pulmonary embolism. Approved by:Olga Lidia Green08/20/2021 12:32 AM. I, Charles Castillo,have reviewed the image(s) and agree with the findings in this report. Electronically signed: Charles Castillo. Transcribed by: [id number], User Resident: OLGA LIDIA WILLIS Electronically Signed by: CHARLES CASTILLO @ 08/20/2021 12:54 AM I personally read this/these film(s) with this resident Normal The [facility] Comment on above: Order Comment: R/O A telectasis CTA NECKon 08-20-2021 CTA NECK [facility] Department of Radiology [address] [place] [id number] Patient Name: MEG GEORGES : 1965 Sex: F Age: Race: White Pt. Location: [facility] Patient Status: I Ordered Date: 08/19/2021 11:15:00 PM Completed Date: 08/20/2021 12:17 AM Requesting Provider: DAVID VALIENTE Attending Provider: JOHNY BECKMAN Report Copy To: Signs & Symptoms: Other History: See Comments Comments: Bleeding s/p recent tracheostomy Exam: CTA NECK HISTORY: Bleeding status post tracheostomy COMPARISON: None TECHNIQUE: CTA of the carotid arteries performed after administration of 100 mL Omnipaque 350 intravenous contrast. 3-D post-processing techniques were utilized. All CT scans at this facility use dose modulation, iterative reconstruction, and/or weight based dosing when appropriate to reduce radiation dose to as low as reasonably achievable. The NASCET methodology was utilized for calculation of percent stenosis. FINDINGS: Aortic arch: Normal caliber. Normal three-vessel arch. Brachiocephalic artery: Patent. Normal caliber. Right subclavian artery: Patent. Normal caliber. Right common carotid artery: Patent. Normal caliber. Left common carotid artery: Patent. Normal caliber. Left subclavian artery: Patent. Normal caliber. Carotid bifurcations: Unremarkable. Right internal carotid artery: Patent. Normal caliber. No significant stenosis or aneurysm identified. Diameter of the normal distal right cervical ICA: 5 mm Left internal carotid artery: Patent. Normal caliber. No significant stenosis or aneurysm identified. Diameter of the normal distal left cervical ICA: 5 mm Vertebral arteries: Patent. Normal caliber. No significant stenosis or aneurysm identified. Other vessels: No abrupt transition, aneurysm, or asymmetry. Hemorrhage/hyperdense secretions in the airway superior to the tracheostomy. There is also hyperattenuating material in the nasal cavity, bilateral frontal sinuses, bilateral ethmoid air cells, bilateral sphenoid sinuses, and bilateral maxillary sinuses. The mastoid air cells are clear. IMPRESSION: 1. No evidence of focal stenosis, aneurysmal dilatation, dissection, or occlusion of the carotids or major arteries of the neck. 2. Hyperdense secretions/fluid in the nasal cavity, paranasal sinuses, and airway superior to tracheostomy, concerning for hemorrhage in the postoperative setting. Approved by:Olga Lidia Gomez/05/2021 12:43 AM. I, Charles Castillo,have reviewed the image(s) and agree with the findings in this report. Electronically signed: Charles Castillo. Transcribed by: [email or web address], User Resident: OLGA LIDIA WILLIS Electronically Signed by: CHARLES CASTILLO @ 08/20/2021 12:51 AM I personally read this/these film(s) with this resident Normal The [facility] Comment on above: Order Comment: Bleed ing s/p recent tracheostomy Endoscopy Reporton Endoscopy Report MR#: [id number] [facility] Pt. Name: Meg Georges Surgery Date: 08/20/2021 Room #: [facility] [id number] Date of : 1965 PROCEDURE NOTE ATTENDING: Jim Pozo M.D. PREOPERATIVE DIAGNOSIS: Tracheostomy site bleeding, tracheostomy status POSTOPERATIVE DIAGNOSIS: Epistaxis, tracheostomy status, coagulopathy OPERATION PERFORMED: Bronchoscopy, cauterization of nasal bleeder ANESTHESIA: General endotracheal anesthesia INDICATIONS: The patient is a 56 years old white female with bleeding from tracheostomy site. Bronchoscopy, possible exploration of the tracheotomy site was offered to patient, informed consent was obtained SURGERY: The patient was brought to the operating room, laid on the operating table in supine position. General endotracheal anesthesia was initiated. Timeout was completed bronchoscopy was initially performed through the tracheostomy. Tracheobronchial tree is clean, without blood. Patient was intubated by oral endotracheal tube. Tracheostomy tube was removed. Tracheotomy tract was evaluated. Several small bleeder of the tract was cauterized. Tracheostomy tube was reinserted through the tract into the trachea. The tube was secured with Velcral tape. The balloon was filled. Bronchoscopy was inserted through thenostrils. Pulsatile bleeder was found on the right nostril 4 cm in depth, the bleeder was cauterized, epinephrine spray was applied. The bleeding was stopped. Another deeper bleeder was cauterized. At end the procedure, no apparent active bleeding. The scope was removed. The procedure was completed without complication. I was present during the procedure. Without complication. Electronically Signed by: Jim Pozo M.D. 08/20/2021 05:28 P Jim Pozo M.D. Date Dict: 08/20/2021/05:17 P/Jim Pozo M.D. Date Trans: 08/20/2021 05:17 P/ [id number] cc: Johny Beckman M.D. [address] [facility] [place] [address] Neri Santa D.O. [address] [place] [address]. [facility] [address] Normal The [facility] FIBRIN DEGRADATION PRODUCTon 08-20-2021 FSP 5 ug/ml Abnormal <5 ug/ml The [facility] Comment on above: Order Comment: No: D o not add to previous draw Performed By: #### 6 2594 #### [facility] [address] [facility] [address] FIBRINOGENon 08-20-2021 FIBRINOGEN 527 mg/dL High 150-425 The [facility] Comment on above: Performed By: #### 6 2594 #### [facility] 3000 [facility] [address] FRESH FROZEN PLASMA 6 UNITSo n 08-20-2021 PRODUCT CODE 1 E2701 Normal The [facility] Comment on above: Performed By: #### 8 7006 ####[facility]3000 [facility] PRODUCT CODE 2 E2701 Normal The [facility] Comment on above: Performed By: #### 8 7006 ####[facility]3000 [facility] PRODUCT CODE 3 E2701 Normal The [facility] Comment on above: Performed By: #### 8 7006 ####[facility] PRODUCT CODE 4 E7750 Normal The [facility] Comment on above: Performed By: #### 8 7006 ####[facility] [facility] [place] [address], [facility] PRODUCT CODE 5 E2701 Normal The [facility] Comment on above: Performed By: #### 8 7006 ####[facility]3000 [facility] [place] [address], [facility] PRODUCT CODE 6 E2701 Normal The [facility] Comment on above: Performed By: #### 8 7006 ####[facility]3000 [facility].[address] PRODUCT STATUS 1 PT Normal The [facility] Comment on above: Result Comment: Resu lt changed by IF on 08/20/2021 13:26. The previous value was XM. Result changed by IF on 08/21/2021 00:30. The previous value was IS. Performed By: #### 8 7006 ####[facility]3000 [facility].[address] PRODUCT STATUS 2 RE Normal The [facility] Comment on above: Result Comment: Resu lt changed by IF on 08/20/2021 05:09. The previous value was XM. Result changed by IF on 08/20/2021 05:16. The previous value was XX. Performed By: #### 8 7006 ####[facility]3000 [facility].[address] PRODUCT STATUS 3 RE Normal The [facility] Comment on above: Result Comment: Resu lt changed by IF on 08/20/2021 05:24. The previous value was XM. Result changed by IF on 08/20/2021 05:48. The previous value was XX. Performed By: #### 8 7006 ####[facility]3000 [facility] [address], [facility] PRODUCT STATUS 4 RE Normal The [facility] Comment on above: Result Comment: Resu lt changed by IF on 08/22/2021 16:50. The previous value was XM. Result changed by IF on 08/25/2021 01:00. The previous value was XX. Performed By: #### 8 7006 ####[facility] [place] [address], [facility] PRODUCT STATUS 5 RE Normal The [facility] Comment on above: Result Comment: Resu lt changed by IF on 08/20/2021 05:24. The previous value was XM. Result changed by IF on 08/20/2021 05:48. The previous value was XX. Performed By: #### 8 7006 ####[facility] [place] [address], [facility] PRODUCT STATUS 6 RE Normal The [facility] Comment on above: Result Comment: Resu lt changed by IF on 08/20/2021 05:24. The previous value was XM. Result changed by IF on 08/20/2021 05:48. The previous value was XX. Performed By: #### 8 7006 ####[facility] [place] [address], [place] UNIT ABO 1 A Normal The [facility] Comment on above: Performed By: #### 8 7006 ####[facility] [place] [address], [place] Performed By: #### 8 9001 ####[facility] [place] [address], [place] UNIT ABO 2 A Normal The [facility] Comment on above: Performed By: #### 8 7006 ####[facility] [place] [address], [place] UNIT ABO 3 A Normal The [facility] Comment on above: Performed By: #### 8 7006 ####[facility] [place] [address], [place] UNIT ABO 4 A Normal [facility] Comment on above: Performed By: #### 8 7006 ####[facility] [place] [address], [facility] UNIT ABO 5 A Normal The [facility] Comment on above: Performed By: #### 8 7006 ####[facility] [place] [address], [facility] UNIT ABO 6 A Normal The [facility] Comment on above: Performed By: #### 8 7006 ####[facility] [place] [address], [facility] UNIT ID 1 [id number] Normal The [facility] Comment on above: Performed By: #### 8 7006 ####[facility] [place] [address], [facility] UNIT ID 2 [id number] Normal The [facility] Comment on above: Performed By: #### 8 7006 ####[facility] [place] [address], [facility] UNIT ID 3 [id number] Normal The [facility] Comment on above: Performed By: #### 8 7006 ####[facility] [place] [address], [facility] UNIT ID 4 [id number] Normal The [facility] Comment on above: Performed By: #### 8 7006 ####[facility] [place] [address], [facility] UNIT ID 5 [id number] Normal The [facility] Comment on above: Performed By: #### 8 7006 ####[facility] [place] [address], [facility] UNIT ID 6 [id number] Normal [facility] Comment on above: Performed By: #### 8 7006 ####[facility] [place] [address], [facility] UNIT RH 1 Positive Normal The [facility] Comment on above: Performed By: #### 8 7006 ####[facility] [place] [address], [facility] Performed By: #### 8 9001 ####[facility] [place] [address], [place] UNIT RH 2 Positive Normal The [facility] Comment on above: Performed By: #### 8 7006 ####[facility] [place] [address], [facility] UNIT RH 3 Positive Normal The [facility] Comment on above: Performed By: #### 8 7006 ####[facility] [place] [address], [facility] UNIT RH 4 Positive Normal The [facility] Comment on above: Performed By: #### 8 6 ####[facility] [place] [address], [facility] UNIT RH 5 Positive Normal The [facility] Comment on above: Performed By: #### 8 7006 ####[facility] [place] [address], [facility] UNIT RH 6 Positive Normal The [facility] Comment on above: Performed By: #### 8 7006 ####[facility] [place] [address], [place] LACTATE BLOODon 08-20-2021 Lactate [Moles/Vol] 1.3 mmol/L Normal .5-2.2 [facility] Comment on above: Performed By: #### 6 2594 #### [facility] [address] [place] [address], [place] LIVER BATTERYon 08-20-2021 Albumin [Mass/Vol] 1.8 g/dL Low 3.5-5.7 [facility] Comment on above: Order Comment: Check NG Tube Position Performed By: #### 1 0070, 57402, 36934, 12119 ####[facility] [place] [address], [facility] ALKALINE PHOSPH 171 IU/L High 34-104 [facility] Comment on above: Order Comment: Check NG Tube Position Performed By: #### 1 0070, 48857, 53269, 11834 ####[facility] [place] [address], [facility] ALT [Catalytic activity/Vol] 10 U/L Normal 7-52 [facility] Comment on above: Order Comment: Check NG Tube Position Performed By: #### 1 0070, 04733, 06969, 09993 ####[facility] [place] [address], [facility] AST [Catalytic activity/Vol] 12 U/L Low 13-39 [facility] Comment on above: Order Comment: Check NG Tube Position Performed By: #### 1 0070, 19152, 71359, 17957 ####[facility] [place] [address], [place] Bilirubin [Mass/Vol] 0.4 mg/dL Normal 0.3-1.0 [facility] Comment on above: Order Comment: Check NG Tube Position Performed By: #### 1 0070, 88526, 84945, 83061 ####[facility] [id number], [facility] Bilirubin.direct [Mass/Vol] 0.1 mg/dL Normal 0.0-0.2 [facility] Comment on above: Order Comment: Check NG Tube Position Performed By: #### 1 0070, 35612, 90345, 79422 ####[facility] Protein [Mass/Vol] 4.6 g/dL Low 6.0-8.3 [facility] Comment on above: Order Comment: Check NG Tube Position Performed By: #### 1 0070, 76427, 53985, 05112 ####[facility] [facility] [place] [address], [facility] MAGNESIUM BLOODon 08-20-2021 Magnesium [Mass/Vol] 1.4 mg/dL Low 1.9-2.7 [facility] Comment on above: Order Comment: Check NG Tube Position Performed By: #### 1 0070, 58081, 13560, 89933 ####[facility] [facility].[address] OSMOLALITY BLOODon 2 Osmolality [Osmolality] 309 mosm/kg High 285-305 [facility] Comment on above: Order Comment: No: D o not add to previous draw Performed By: #### 6 2594 #### [facility] [address] [facility] [place] [address], [facility] PHOSPHORUS BLOODon 2 Phosphate [Mass/Vol] 2.4 mg/dL Low 2.5-5.0 [facility] Comment on above: Order Comment: Check NG Tube Position Performed By: #### 1 0070, 28848, 24591, 17289 ####[facility] [facility].[address] PLATELET APHERESIS 1 UNITon 08-20-2021 PRODUCT CODE 1 [id number] Normal [facility] Comment on above: Performed By: #### 8 9001 ####[facility] [facility].[address] UNIT ID 1 [id number] Normal [facility] Comment on above: Performed By: #### 8 9001 ####[facility] [place] [address], [facility] PRODUCT STATUS 1 RE Normal [facility] Comment on above: Result Comment: Resu lt changed by IF on 08/21/2021 01:00. The previous value was XM. Performed By: #### 8 9001 ####[facility] [facility] [address], [facility] Result Comment: Resu lt changed by IF on 08/21/2021 08:54. The previous value was XM. Result changed by IF on 08/21/2021 18:31. The previous value was XX. Performed By: #### 8 6006 ####[facility] [place] [address], [facility] POC GLUCOSE LABon 08-20-2021 Glucose [Mass/Vol] 118 mg/dL High 70-100 [facility] Comment on above: Performed By: #### 8 5499 ####[facility] [place] [address], [facility] Glucose [Mass/Vol] 142 mg/dL High 70-100 [facility] Comment on above: Performed By: #### 8 5499 ####[place] [address] [place] [address], [facility] Glucose [Mass/Vol] 160 mg/dL High 70-100 [facility] Comment on above: Performed By: #### 8 5499 ####[place] [address] [place] [address], [facility] Glucose [Mass/Vol] 177 mg/dL High 70-100 [facility] Comment on above: Performed By: #### 8 5499 ####[place] [address] [place] [address], [facility] POC SARS COV2 ANTIGEN NEGATI VEon 08-20-2021 POC SARS COV2 ANTIGEN NEG Negative Normal NEGATIVE The [facility] Comment on above: Result Comment: Nega tive results should be treated as presumptive and confirmation with a molecular assay, if necessary, for patient management, may be performed. Negative results do not rule out SARS-CoV-2 infection and not should be used as the sole basis for treatment or patient management decisions, including infection control decisions. Negative results should be considered in the context of a patient's recent exposures, history, and the presence of clinical signs and symptoms consistent with COVID-19. The Clarity COVID-19 Antigen Rapid Test Cassette is a rapid chromatographic immunoassay intended for the qualitative detection of the nucleocapsid protein antigen from SARS-CoV-2 in direct nasopharyngeal swab (SCREED OPERATOR) specimens from individuals who are suspected of COVID-19 by their healthcare provider within the first six days of symptom onset. Testing is limited to laboratories certified under the Clinical Laboratory Improvement Amendments of 1988 (CLIA), 42 U.S.C. ???263a, that meet the requirements to perform moderate complexity, high complexity, or waived tests. This test is authorized for use at the Point of Care (POC), i.e., in patient care settings operating under a CLIA Certificate of Waiver, Certificate of Compliance, or Certificate of Accreditation. Performed By: #### 3 2044 #### [address] PORTABLE CHEST 1 VIEWon PORTABLE CHEST 1 VIEW [facility] Department of Radiology [address] [place] [id number] Patient Name: MEG GEORGES : 1965 Sex: F Age: Race: White Pt. Location: [id number] Patient Status: I Ordered Date: 08/20/2021 5:20:00 PM Completed Date: 08/20/2021 07:27 PM Requesting Provider: WILLEM SERRATO Attending Provider: JERRY POZO Report Copy To: Signs & Symptoms: Post NG Tube Placement History: See Comments Comments: Check NG Tube Position Exam: PORTABLE CHEST 1 VIEW PORTABLE CHEST 1 VIEW 08/20/2021 7:27 PM CLINICAL INDICATIONS: Post NG Tube Placement TECHNOLOGIST COMMENTS: Check NG Tube Position per ordering physician. QUESTION FOR THE RADIOLOGIST: Check NG Tube Position PROTOCOL: AP(PA) view was obtained. COMPARISON: August 20, 2021 FINDINGS: Enteric tube tip outside the inferior [id number]-dobb, presumably within the stomach. Stable tracheostomy cannula. Stable cardiomediastinal silhouette. No new focal consolidation, significant effusion, or pneumothorax. Right upper extremity PICC, its tip at the mid SVC. IMPRESSION: Enteric tube tip likely within the stomach, outside the inferior [id number] however Electronically signed: KIKE DICKSON. Transcribed by: [email or web address], User Resident: Electronically Signed by: KIKE DICKSON @ 08/20/2021 07:46 PM Normal The [facility] Comment on above: Order Comment: Check NG Tube Position PORTABLE CHEST 1 VIEW [facility] Department of Radiology [address] [place] [id number] Patient Name: MEG GEORGES : 1965 Sex: F Age: Race: White Pt. Location: [place] [address] Patient Status: I Ordered Date: 08/20/2021 7:50:00 AM Completed Date: 08/20/2021 09:06 AM Requesting Provider: WILLEM SERRATO Attending Provider: JERRY POZO Report Copy To: Signs & Symptoms: O2 desaturation History: Comments: evaluate for Atelectasis Exam: PORTABLE CHEST 1 VIEW PORTABLE CHEST 1 VIEW 08/20/2021 9:08 AM CLINICAL INDICATIONS: O2 desaturation TECHNOLOGIST COMMENTS: O2 desaturation QUESTION FOR THE RADIOLOGIST: evaluate for Atelectasis PROTOCOL: AP(PA) view was obtained. COMPARISON: Recent chest x-ray FINDINGS: Upper thorax partially obscured by overlapping respiratory equipment. Heart and mediastinum are stable. Tracheostomy tube appears grossly normal. Right side PICC line extends to the SVC. Probable atelectasis left lung base. No pneumothorax, large effusion or focal dense consolidation. IMPRESSION: * Stable support lines and tubes. * Density left base currently resembling atelectasis but ultimately indeterminate. Electronically signed: Blossom Gongora. Transcribed by: [email or web address], User Resident: BLOSSOM GONGORA Electronically Signed by: BLOSSOM GONGORA @ 08/20/2021 09:10 AM I personally read this/these film(s) with this resident Normal The [facility] Comment on above: Order Comment: evalu ate for Atelectasis PORTABLE CHEST 1 VIEW [facility] Department of Radiology [address] [place] [id number] Patient Name: MEG GEORGES : 1965 Sex: F Age: Race: White Pt. Location: [facility] Patient Status: E Ordered Date: 08/19/2021 10:15:00 PM Completed Date: 08/19/2021 10:22 PM Requesting Provider: RENETTA CASTLE Attending Provider: JOHNY BECKMAN Report Copy To: Signs & Symptoms: Hemoptysis History: Comments: Check Tracheostomy Position Exam: PORTABLE CHEST 1 VIEW PORTABLE CHEST 1 VIEW CLINICAL INDICATION: Hemoptysis. COMPARISON: None. IMPRESSION: 1. Lines and tubes: Tracheostomy tube with tip 3.4 cm above the yudith, right-sided PICC line catheter tip lower SVC. 2. Overlying structures obscures the upper lungs, however no appreciable pneumothorax or acute parenchymal abnormality. Electronically signed: Darci Monahan. Transcribed by: [email or web address], User Resident: Electronically Signed by: DARCI MONAHAN @ 08/19/2021 10:41 PM Normal The [facility] Comment on above: Order Comment: Check NG Tube Position PROTHROMBIN TIMEon INR Coag (PPP) [Relative time] 1.70 {INR} High 0.91-1.16 The [facility] Comment on above: Order Comment: Check NG Tube Position Result Comment: ACCC P RECOMMENDED INR FOR WARFARIN THERAPY ------- CONDITION INR PROPHYLAXIS OF VENOUS THROMBOSIS 2-3 (HIGH-RISK SURGERY) TREATMENT OF VENOUS THROMBOSIS 2-3 TREATMENT OF PULMONARY EMBOLISM 2-3 PREVENTION OF SYSTEMIC EMBOLISM: 2-3 ACUTE MYOCARDIAL INFARCTION TISSUE HEART VALVES VALVULAR HEART DISEASE ATRIAL FIBRILLATION RECURRENT SYSTEMIC EMBOLISM MECHANICAL HEART VALVE 2.5-3.5 FROM: ORAL ANTICOAGULANTS. MECHANISM OF ACTION, CLINICAL EFFECTIVENESS, AND OPTIMAL THERAPEUTIC RANGE. CHEST 1995;108:231S-246S. Performed By: #### 5 6101 ####[facility] [place] [address], [facility] PT Coag (PPP) [Time] 19.7 s High 12.3-14.8 [facility] Comment on above: Order Comment: Check NG Tube Position Result Comment: ALL RESULTS MUST BE INTERPRETED WITH RESPECT TO BLOOD DRAWING ARTIFACT OR DILUTION ERROR OF ANTICOAGULANT AT THE TIME OF SAMPLING. Performed By: #### 5 6101 ####[facility] [facility] [address], [facility] INR Coag (PPP) [Relative time] 1.47 {INR} High 0.91-1.16 The [facility] Comment on above: Result Comment: ACCC P RECOMMENDED INR FOR WARFARIN THERAPY ------- CONDITION INR PROPHYLAXIS OF VENOUS THROMBOSIS 2-3 (HIGH-RISK SURGERY) TREATMENT OF VENOUS THROMBOSIS 2-3 TREATMENT OF PULMONARY EMBOLISM 2-3 PREVENTION OF SYSTEMIC EMBOLISM: 2-3 ACUTE MYOCARDIAL INFARCTION TISSUE HEART VALVES VALVULAR HEART DISEASE ATRIAL FIBRILLATION RECURRENT SYSTEMIC EMBOLISM MECHANICAL HEART VALVE 2.5-3.5 FROM: ORAL ANTICOAGULANTS. MECHANISM OF ACTION, CLINICAL EFFECTIVENESS, AND OPTIMAL THERAPEUTIC RANGE. CHEST 1995;108:231S-246S. Performed By: #### 5 6788, 09941, 72362, 44597 ####[facility] [facility].[address] PT Coag (PPP) [Time] 17.7 s High 12.3-14.8 The [facility] Comment on above: Result Comment: ALL RESULTS MUST BE INTERPRETED WITH RESPECT TO BLOOD DRAWING ARTIFACT OR DILUTION ERROR OF ANTICOAGULANT AT THE TIME OF SAMPLING. Performed By: #### 5 6788, 77058, 69661, 69399 ####[facility] [facility] [address], [facility] RBC'S 6 UNITSon 08-20-2021 CROSSMATCH INTERP 1 COMP Normal [facility] Comment on above: Performed By: #### 8 6006 ####[facility] [facility] [address], [facility] CROSSMATCH INTERP 2 COMP Normal [facility] Comment on above: Performed By: #### 8 6006 ####[facility] [facility].[address] CROSSMATCH INTERP 3 COMP Normal [facility] Comment on above: Performed By: #### 8 6006 ####[facility] [facility] [address], [facility] CROSSMATCH INTERP 4 COMP Normal [facility] Comment on above: Performed By: #### 8 6006 ####[facility] [facility] [address], [facility] CROSSMATCH INTERP 5 COMP Normal [facility] Comment on above: Performed By: #### 8 6006 ####[facility] [facility] [address], [facility] CROSSMATCH INTERP 6 COMP Normal [facility] Comment on above: Performed By: #### 8 6006 ####[facility] [facility] [address], [facility] PRODUCT CODE 1 E0336 Normal [facility] Comment on above: Performed By: #### 8 6006 ####[facility] [place] [address], [facility] PRODUCT CODE 2 E0336 Normal [facility] Comment on above: Performed By: #### 8 6006 ####[facility] [place] [address], [facility] PRODUCT CODE 3 E0336 Normal [facility] Comment on above: Performed By: #### 8 6006 ####[facility] [place] [address], [facility] PRODUCT CODE 4 E0336 Normal [facility] Comment on above: Performed By: #### 8 6006 ####[facility] [facility] [place] [place] [address], [facility] PRODUCT CODE 5 E0336 Normal [facility] Comment on above: Performed By: #### 8 6006 ####[facility] [facility] [address], [facility] PRODUCT CODE 6 E0336 Normal [facility] Comment on above: Performed By: #### 8 6006 ####[facility] [facility] [address], [facility] PRODUCT STATUS 2 RE Normal The [facility] Comment on above: Result Comment: Resu lt changed by IF on 08/20/2021 05:40. The previous value was XM. Result changed by IF on 08/20/2021 05:48. The previous value was XX. Performed By: #### 8 6006 ####[facility] [place] [address], [facility] PRODUCT STATUS 3 RE Normal [facility] Comment on above: Result Comment: Resu lt changed by IF on 08/22/2021 01:00. The previous value was XM. Performed By: #### 8 6006 ####[facility] [place] [address], [facility] PRODUCT STATUS 4 RE Normal [facility] Comment on above: Result Comment: Resu lt changed by IF on 08/20/2021 05:40. The previous value was XM. Result changed by IF on 08/20/2021 05:48. The previous value was XX. Performed By: #### 8 6006 ####[facility] [place] [address], [place] PRODUCT STATUS 5 RE Normal [facility] Comment on above: Result Comment: Resu lt changed by IF on 08/22/2021 01:00. The previous value was XM. Performed By: #### 8 6006 ####[facility] [place] [address], [place] PRODUCT STATUS 6 RE Normal [facility] Comment on above: Result Comment: Resu lt changed by IF on 08/21/2021 08:54. The previous value was XM. Result changed by IF on 08/22/2021 01:00. The previous value was XX. Performed By: #### 8 6006 ####[facility] [place] [address], [place] UNIT ABO 1 A Normal The [facility] Comment on above: Performed By: #### 8 6006 ####[facility] [place] [address], [place] UNIT ABO 2 A Normal The [facility] Comment on above: Performed By: #### 8 6006 ####[facility] [place] [address], [place] UNIT ABO 3 A Normal The [facility] Comment on above: Performed By: #### 8 6006 ####[facility] [place] [address], [place] UNIT ABO 4 A Normal The [facility] Comment on above: Performed By: #### 8 6006 ####[facility] [place] [address], [facility] UNIT ABO 5 A Normal The [facility] Comment on above: Performed By: #### 8 6006 ####[facility] [place] [address], [facility] UNIT ABO 6 A Normal [facility] Comment on above: Performed By: #### 8 6006 ####[facility] [place] [address], [facility] UNIT ID 1 [id number] Normal [facility] Comment on above: Performed By: #### 8 6006 ####[facility] [place] [address], [facility] UNIT ID 2 [id number] Normal [facility] Comment on above: Performed By: #### 8 6006 ####[facility] [place] [address], [facility] UNIT ID 3 [id number] Normal [facility] Comment on above: Performed By: #### 8 6006 ####[facility] [place] [address], [facility] UNIT ID 4 [id number] Normal [facility] Comment on above: Performed By: #### 8 6006 ####[facility] [place] [address], [facility] UNIT ID 5 [id number] Normal [facility] Comment on above: Performed By: #### 8 6006 ####[facility] [place] [address], [facility] UNIT ID 6 [id number] Normal [facility] Comment on above: Performed By: #### 8 6006 ####[facility] [place] [address], [facility] UNIT RH 1 Positive Normal The [facility] Comment on above: Performed By: #### 8 6006 ####[facility] [place] [address], [facility] UNIT RH 2 Positive Normal The [facility] Comment on above: Performed By: #### 8 6006 ####[facility] [place] [address], [facility] UNIT RH 3 Positive Normal The [facility] Comment on above: Performed By: #### 8 6006 ####[facility] [place] [address], [facility] UNIT RH 4 Positive Normal The [facility] Comment on above: Performed By: #### 8 6006 ####[facility] [place] [address], [facility] UNIT RH 5 Positive Normal The [facility] Comment on above: Performed By: #### 8 6006 ####[facility] [facility] [place] [address], [facility] UNIT RH 6 Positive Normal The [facility] Comment on above: Performed By: #### 8 6006 ####[facility] [facility] [place] [address], [facility] TRIGLYCERIDES BLOODon 2021 Triglyceride [Mass/Vol] 147 mg/dL Normal 40-149 T he [facility] Comment on above: Order Comment: No: D o not add to previous draw Result Comment: TRIG LYCERIDE REFERENCE RANGE: 20 YEARS AND OLDER CARDIOVASCULAR RISK LESS THAN 150 mg/dl LOW RISK 150 TO 199 mg/dl BORDERLINE RISK 200 mg/dl AND GREATER HIGH RISK Performed By: #### 6 2594 #### [facility] [address] [place] [address], [facility] TROPONIN-Ion 08-20-2021 Troponin I.cardiac [Mass/Vol] 0.03 ng/mL Normal 0.00-0.04 The [facility] Comment on above: Result Comment: REFE RENCE RANGES: 0.00 - 0.04 ng/ml NORMAL 0.05 - 0.50 ng/ml INDETERMINATE > 0.50 ng/ml CONSISTENT WITH AN M.I. Performed By: #### 3 5200, 19347 ####[facility] [place] [address], [facility] TYPE AND CROSSMATCHon 2021 ABO INTERPRETATION A Normal The [facility] Comment on above: Performed By: #### 6 2594 #### [facility] [address] [place] [address], [facility] RH INTERPRETATION Positive Normal [facility] Comment on above: Performed By: #### 6 2594 #### [facility] [address] [place] [address], [facility] rbc emergency releaseon 07-0 CROSSMATCH INTERP 1 COMP Normal [facility] Comment on above: Performed By: #### R BCER ####[facility] [facility] [place] [address], [facility] CROSSMATCH INTERP 2 COMP Normal [facility] Comment on above: Result Comment: This result added by IF on 08/20/2021 02:44. Performed By: #### R BCER ####[facility] [facility] [place] [place] [address], [facility] CROSSMATCH INTERP 3 COMP Normal [facility] Comment on above: Result Comment: This result added by IF on 08/20/2021 02:44. Performed By: #### R BCER ####[facility] [place] [address], [facility] PRODUCT CODE 1 E0685 Normal The [facility] Comment on above: Performed By: #### R BCER ####[facility] [facility] [address], [facility] PRODUCT CODE 2 E0336 Normal [facility] Comment on above: Performed By: #### R BCER ####[facility] [facility] [place] [address], [facility] PRODUCT CODE 3 E0685 Normal [facility] Comment on above: Performed By: #### R BCER ####[facility] [facility] [address], [facility] PRODUCT STATUS 1 PT Normal The [facility] Comment on above: Result Comment: Resu lt changed by IF on 08/20/2021 02:42. The previous value was EI. Result changed by IF on 08/21/2021 00:30. The previous value was PI. Performed By: #### R BCER ####[facility] [facility].[address] PRODUCT STATUS 2 PT Normal [facility] Comment on above: Result Comment: Resu lt changed by IF on 08/20/2021 02:44. The previous value was EI. Result changed by IF on 08/21/2021 00:30. The previous value was PI. Performed By: #### R BCER ####[facility] [facility] [address], [facility] PRODUCT STATUS 3 PT Normal [facility] Comment on above: Result Comment: Resu lt changed by IF on 08/20/2021 02:44. The previous value was EI. Result changed by IF on 08/21/2021 00:30. The previous value was PI. Performed By: #### R BCER ####[facility] [facility] [address], [facility] UNIT ABO 1 O Normal The [facility] Comment on above: Performed By: #### R BCER ####[facility] [place] [address], [facility] UNIT ABO 2 O Normal The [facility] Comment on above: Performed By: #### R BCER ####[facility] [place] [address], [facility] UNIT ABO 3 O Normal The [facility] Comment on above: Performed By: #### R BCER ####[facility] [place] [address], [facility] UNIT ID 1 [id number] Normal [facility] Comment on above: Performed By: #### R BCER ####[facility] [place] [address], [facility] UNIT ID 2 [id number] Normal [facility] Comment on above: Performed By: #### R BCER ####[facility] [facility] [place] [address], [facility] UNIT ID 3 [id number] Normal [facility] Comment on above: Performed By: #### R BCER ####[facility] [facility] [address], [facility] UNIT RH 1 Negative Normal The [facility] Comment on above: Performed By: #### R BCER ####[facility] [place] [address], [facility] UNIT RH 2 Negative Normal The [facility] Comment on above: Performed By: #### R BCER ####[facility] [place] [address], [facility] UNIT RH 3 Negative Normal The [facility] Comment on above: Performed By: #### R BCER ####[facility] [place] [address], [place] CT BRAIN WO CONTRASTon 08-15 CT BRAIN WO CONTRAST [facility] Department of Radiology [address] [place] [address] Patient Name: MEG GEORGES : 1965 Sex: F Age: Race: White Pt. Location: [facility] Patient Status: Ordered Date: 08/15/2021 12:05:00 PM Completed Date: 08/15/2021 04:06 PM Requesting Provider: GANGA SAVAGE Attending Provider: Report Copy To: Signs & Symptoms: R/O Bleed History: Order in [facility] [phone] Trach/vent Comments: Exam: CT BRAIN WO CONTRAST CT BRAIN WO CONTRAST 08/15/2021 4:06 PM CLINICAL INDICATIONS: R/O Bleed TECHNOLOGIST COMMENTS: PT TRACH TO VENT FROM [facility] CONFUSED AND COMBATIVE PER STAFF QUESTION FOR THE RADIOLOGIST: PROTOCOL: Axial CT images of the head were obtained without IV contrast. TECHNIQUE: Multidetector CT axial slices of the without IV contrast. Multiplanar reformats were performed and viewed on a separate workstation and reviewed to further define anatomy and possible pathology. All CT scans at this facility use dose modulation, iterative reconstruction, and/or weight based dosing when appropriate to reduce radiation dose to as low as reasonably achievable COMPARISON: None. FINDINGS: There is no acute intracranial hemorrhage. Shah-white differentiation appears intact without obvious acute cortical infarct within the limits of this exam. There is no mass or cisternal effacement. Paranasal sinus infiltrate changes noted. IMPRESSION: No acute intracranial findings. Electronically signed: Angel Beal. Transcribed by: [email or web address], User Resident: Electronically Signed by: ANGEL BEAL @ 08/15/2021 04:12 PM Normal The [facility] Basic Metabolic Panel w/ Ref rafael to MGon 08-10-2021 Anion gap [Moles/Vol] 11 mmol/L 9 - 17 mmol/L [facility] Calcium [Mass/Vol] 8.5 mg/dL Low 8.6 - 10. 4 mg/dL [facility] Chloride [Moles/Vol] 107 mmol/L 98 - 10 7 mmol/L [facility] CO2 [Moles/Vol] 24 mmol/L 20 - 31 mmol/L [facility] Creatinine [Mass/Vol] 0.54 mg/dL 0.50 - 0.90 mg/dL [facility] GFR >60 >60 mL/min [facility] GFR Non- >60 >60 mL/min [facility] GFR/1.73 sq M.predicted MDRD (S/P/Bld) [Vol rate/Area] [facility] Glucose [Mass/Vol] 150 mg/dL High 70 - 99 mg/dL [facility] Interpretation and review of laboratory results Abnormal [facility] Potassium [Moles/Vol] 3.3 mmol/L Low 3.7 - 5.3 mmol/L [facility] Sodium [Moles/Vol] 142 mmol/L 135 - 144 mmol/L [facility] Urea nitrogen (BldV) [Mass/Vol] 11 mg/dL 6 - 20 mg/dL [facility] CBC with Auto Differentialon 08-10-2021 Absolute Eos # 0.45 High [facility] Absolute Immature Granulocyte <0.03 [facility] Absolute Lymph # 2.27 [facility] Absolute [place] # 0.58 [facility] Basophils (Bld) [#/Vol] 0.05 10*3/uL [facility] Basophils/100 WBC (Bld) 1 % 0 - 2 % [facility] Eosinophils/100 WBC (Bld) 5 % High 1 - 4 % [facility] Hematocrit (Bld) [Volume fraction] 28.0 % Low 36.3 - 47.1 % [facility] Hemoglobin (Bld) [Mass/Vol] 8.9 g/dL Low 11.9 - 15.1 g/dL [facility] Immature granulocytes/100 WBC (Bld) 0 % 0 [facility] Interpretation and review of laboratory results Abnormal [facility] Lymphocytes/100 WBC (Bld) 25 % 24 - 43 % [facility] MCH (RBC) [Entitic mass] 31.3 pg 25.2 - 33.5 pg [facility] MCHC (RBC) [Mass/Vol] 31.8 g/dL 28.4 - 34.8 g/dL [facility] MCV (RBC) [Entitic vol] 98.6 fL 82.6 - 102.9 fL [facility] Monocytes/100 WBC (Bld) 7 % 3 - 12 % [facility] NRBC Automated 0.0 0.0 per 100 WBC [facility] Platelet distribution width (Bld) [Ratio] 17.5 % High 11.8 - 14.4 % [facility] Platelet mean volume (Bld) [Entitic vol] 8.8 fL 8.1 - 13.5 fL [facility] Platelets (Bld) [#/Vol] 576 10*3/uL High [facility] RBC (Bld) [#/Vol] 2.84 10*6/uL Low 3.95 - 5.1 1 m/uL [facility] RBC (Bld) [#/Vol] ANISOCYTOSIS PRESENT [facility] Seg Neutrophils 62 % 36 - 65 % [facility] Segs Absolute 5.62 [facility] WBC (Bld) [#/Vol] 9.0 10*3/uL [facility] Magnesiumon 08-10-2021 Magnesium [Mass/Vol] 1.8 mg/dL 1.6 - 2 .6 mg/dL [facility] Glucose Fingerstickon Glucose [Mass/Vol] 188 mg/dL High 65 - 105 mg/dL [facility] Interpretation and review of laboratory results Abnormal [facility] Glucose [Mass/Vol] 218 mg/dL High 65 - 105 mg/dL [facility] Interpretation and review of laboratory results Abnormal [facility] Glucose [Mass/Vol] 133 mg/dL High 65 - 105 mg/dL [facility] Interpretation and review of laboratory results Abnormal [facility] Glucose Fingerstickon Glucose [Mass/Vol] 204 mg/dL High 65 - 105 mg/dL [facility] Interpretation and review of laboratory results Abnormal [facility] Glucose [Mass/Vol] 184 mg/dL High 65 - 105 mg/dL [facility] Interpretation and review of laboratory results Abnormal [facility] Glucose [Mass/Vol] 202 mg/dL High 65 - 105 mg/dL [facility] Interpretation and review of laboratory results Abnormal [facility] Glucose [Mass/Vol] 126 mg/dL High 65 - 105 mg/dL [facility] Interpretation and review of laboratory results Abnormal [facility] Basic Metabolic Panel w/ Ref rafael to MGon 08-08-2021 Anion gap [Moles/Vol] 11 mmol/L 9 - 17 mmol/L [facility] Calcium [Mass/Vol] 7.9 mg/dL Low 8.6 - 10. 4 mg/dL [facility] Chloride [Moles/Vol] 108 mmol/L High 98 - 10 7 mmol/L [facility] HOSPITALMedallion Analytics SoftwareASHTABULA COUNTY [facility] CO2 [Moles/Vol] 22 mmol/L 20 - 31 mmol/L [facility] Creatinine [Mass/Vol] 0.59 mg/dL 0.50 - 0.90 mg/dL [facility] GFR >60 >60 mL/min [facility]AS[facility] GFR Non- >60 >60 mL/min [facility] HOSPITALMedallion Analytics Software [facility] GFR/1.73 sq M.predicted MDRD (S/P/Bld) [Vol rate/Area] [facility] Glucose [Mass/Vol] 193 mg/dL High 70 - 99 mg/dL [facility] Interpretation and review of laboratory results Abnormal [facility] Potassium [Moles/Vol] 3.8 mmol/L 3.7 - 5.3 mmol/L [facility] Sodium [Moles/Vol] 141 mmol/L 135 - 144 mmol/L [facility] Urea nitrogen (BldV) [Mass/Vol] 11 mg/dL 6 - 20 mg/dL [facility] CBC with Auto Differentialon 08-08-2021 Absolute Eos # 0.29 [place] [facility] Absolute Immature Granulocyte 0.04 [facility] Absolute Lymph # 2.17 [facility] Absolute [place] # 0.64 [facility] Basophils (Bld) [#/Vol] 0.04 10*3/uL [facility] Basophils/100 WBC (Bld) 0 % 0 - 2 % [facility] Eosinophils/100 WBC (Bld) 3 % 1 - 4 % [facility] Hematocrit (Bld) [Volume fraction] 24.6 % Low 36.3 - 47.1 % [facility] Hemoglobin (Bld) [Mass/Vol] 8.0 g/dL Low 11.9 - 15.1 g/dL [facility] Immature granulocytes/100 WBC (Bld) 0 % 0 [facility] Interpretation and review of laboratory results Abnormal [facility] Lymphocytes/100 WBC (Bld) 23 % Low 24 - 43 % [facility] MCH (RBC) [Entitic mass] 31.7 pg 25.2 - 33.5 pg [facility] MCHC (RBC) [Mass/Vol] 32.5 g/dL 28.4 - 34.8 g/dL [facility] MCV (RBC) [Entitic vol] 97.6 fL 82.6 - 102.9 fL [facility] Monocytes/100 WBC (Bld) 7 % 3 - 12 % [facility] NRBC Automated 0.0 0.0 per 100 WBC [facility]I [facility] [employer] Platelet distribution width (Bld) [Ratio] 17.8 % High 11.8 - 14.4 % [facility] [employer] Platelet mean volume (Bld) [Entitic vol] 8.9 fL 8.1 - 13.5 fL [facility] [employer] Platelets (Bld) [#/Vol] 514 10*3/uL High [facility] [employer] RBC (Bld) [#/Vol] 2.52 10*6/uL Low 3.95 - 5.1 1 m/uL [facility] RBC (Bld) [#/Vol] ANISOCYTOSIS PRESENT [facility] [employer] Seg Neutrophils 67 % High 36 - 65 % [facility] [employer] Segs Absolute 6.36 [facility] [employer] WBC (Bld) [#/Vol] 9.5 10*3/uL [facility] [employer] AR[facility]ELI [facility] [employer] EKG 12 LeadOrdered By: Armando Galloway on 08-08-2021 Atrial Rate 90 BPM Yobble [facility]ENTERMedallion Analytics Software [employer] Work Phone: P [place] 43 degrees Yobble [facility]ENTERMedall[facility] Analytics Software [employer] Work Phone: P-R Interval 122 ms Manzama [employer] Work Phone: Q-T Interval 374 ms Yobble [facility] [employer] Work Phone: QRS Duration 78 ms scPharmaceuticalsLE[facility] [employer] Work Phone: QTc Calculation (Bazett) 457 ms Yobble [facility] [employer] Work Phone: R [place] -4 degrees Yobble [facility] [employer] Work Phone: T [place] 51 degrees Yobble [facility] [employer] Work Phone: Ventricular Rate 90 BPM [facility] [employer] Work Phone: Yobble [facility] [employer] Work Phone: EKG 12 Leadon 08-08-2021 MHPN STV MUSE Yobble [facility] [employer] Work Phone: POC Glucose Fingerstickon Glucose [Mass/Vol] 147 mg/dL High 65 - 105 mg/dL [facility] Interpretation and review of laboratory results Abnormal [facility] Glucose [Mass/Vol] 157 mg/dL High 65 - 105 mg/dL [facility] Interpretation and review of laboratory results Abnormal [facility] Glucose [Mass/Vol] 207 mg/dL High 65 - 105 mg/dL [facility] Interpretation and review of laboratory results Abnormal [facility] Glucose [Mass/Vol] 214 mg/dL High 65 - 105 mg/dL [facility] Interpretation and review of laboratory results Abnormal [facility] Glucose Fingerstickon Glucose [Mass/Vol] 206 mg/dL High 65 - 105 mg/dL [facility] Interpretation and review [facility] laboratory results Abnormal [facility] Glucose [Mass/Vol] 202 mg/dL High 65 - 105 mg/dL [facility] Interpretation and review of laboratory results Abnormal [facility] Glucose [Mass/Vol] 179 mg/dL High 65 - 105 mg/dL [facility] Interpretation and review of laboratory results Abnormal [facility] Glucose [Mass/Vol] 144 mg/dL High 65 - 105 mg/dL [facility] Interpretation and review of laboratory results Abnormal [facility] Glucose [Mass/Vol] 154 mg/dL High 65 - 105 mg/dL [facility] Interpretation and review of laboratory results Abnormal [facility] Glucose [Mass/Vol] 150 mg/dL High 65 - 105 mg/dL [facility] Interpretation and review of laboratory results Abnormal [facility] Glucose [Mass/Vol] 153 mg/dL High 65 - 105 mg/dL [facility] Interpretation and review of laboratory results Abnormal [facility] TSHon 08-07-2021 Interpretation and review of laboratory results Abnormal [facility] TSH Qn 7.90 m[IU]/L High Sennari XR CERVICAL SPINE FLEXION AN D EXTENSIONon 08-07-2021 MHPN RIS CONSOLIDATED MHPN RIS CONSOLIDATED [employer] Work Phone: Radiology Study observation (narrative) ARASELI [employer] Work Phone: XR CERVICAL SPINE FLEXION AN D EXTENSIONOrdered By: Paramjit Saenz on 08-07-2021 [employer] Work Phone: Basic Metabolic Panel w/ Ref rafael to MGon 08-06-2021 Anion gap [Moles/Vol] 11 mmol/L 9 - 17 mmol/L [employer] Calcium [Mass/Vol] 8.5 mg/dL Low 8.6 - 10. 4 mg/dL Yobble [facility] CENTERTru[facility] Technologies Chloride [Moles/Vol] 109 mmol/L High 98 - 10 7 mmol/L Yobble [facility] CO2 [Moles/Vol] 23 mmol/L 20 - 31 mmol/L Yobble [facility] Creatinine [Mass/Vol] 0.55 mg/dL 0.50 - 0.90 mg/dL [employer] GFR >60 >60 mL/min [employer] GFR Non- >60 >60 mL/min Yobble [facility] GFR/1.73 sq M.predicted MDRD (S/P/Bld) [Vol rate/Area] [employer] Glucose [Mass/Vol] 48 mg/dL Low 70 - 99 mg/dL Yobble [facility] Interpretation and review of laboratory results Abnormal Yobble [facility] Potassium [Moles/Vol] 3.6 mmol/L Low 3.7 - 5.3 mmol/L Yobble [facility] Sodium [Moles/Vol] 143 mmol/L 135 - 144 mmol/L Yobble [facility] Urea nitrogen (BldV) [Mass/Vol] 11 mg/dL 6 - 20 mg/dL [facility] HOSPITALAquaHydrate [facility] CBC with Auto Differentialon 08-06-2021 Absolute Eos # 0.28 [place] [facility] Absolute Immature Granulocyte 0.07 Yobble [facility] Absolute Lymph # 2.04 [facility] Absolute [place] # 0.61 [facility] Basophils (Bld) [#/Vol] 0.04 10*3/uL [facility] Basophils/100 WBC (Bld) 0 % 0 - 2 % [facility] Eosinophils/100 WBC (Bld) 2 % 1 - 4 % [facility] Hematocrit (Bld) [Volume fraction] 26.3 % Low 36.3 - 47.1 % [facility] Hemoglobin (Bld) [Mass/Vol] 8.6 g/dL Low 11.9 - 15.1 g/dL [facility] Immature granulocytes/100 WBC (Bld) 1 % High 0 [facility] Interpretation and review of laboratory results Abnormal [facility] Lymphocytes/100 WBC (Bld) 17 % Low 24 - 43 % [facility] MCH (RBC) [Entitic mass] 31.9 pg 25.2 - 33.5 pg [facility] MCHC (RBC) [Mass/Vol] 32.7 g/dL 28.4 - 34.8 g/dL [facility] MCV (RBC) [Entitic vol] 97.4 fL 82.6 - 102.9 fL [facility] Monocytes/100 WBC (Bld) 5 % 3 - 12 % [facility] NRBC Automated 0.0 0.0 per 100 WBC [facility] Platelet distribution width (Bld) [Ratio] 18.0 % High 11.8 - 14.4 % [facility] Platelet mean volume (Bld) [Entitic vol] 8.4 fL 8.1 - 13.5 fL [facility] Platelets (Bld) [#/Vol] 565 10*3/uL High [facility] RBC (Bld) [#/Vol] 2.70 10*6/uL Low 3.95 - 5.1 1 m/uL [facility] RBC (Bld) [#/Vol] ANISOCYTOSIS PRESENT [facility] Seg Neutrophils 75 % High 36 - 65 % [facility] Segs Absolute 9.28 High [facility] WBC (Bld) [#/Vol] 12.3 10*3/uL High [facility] No Panel Informationon 08-06 Interpretation and review of laboratory results Abnormal [facility] Glucose Fingerstickon Glucose [Mass/Vol] 158 mg/dL High 65 - 105 mg/dL [facility] Interpretation and review of laboratory results Abnormal [facility] Glucose [Mass/Vol] 125 mg/dL High 65 - 105 mg/dL [facility] Interpretation and review of laboratory results Abnormal [facility] Glucose [Mass/Vol] 128 mg/dL High 65 - 105 mg/dL [facility] Interpretation and review of laboratory results Abnormal [facility] Glucose [Mass/Vol] 106 mg/dL High 65 - 105 mg/dL [facility] Interpretation and review of laboratory results Abnormal [facility] Glucose [Mass/Vol] 109 mg/dL High 65 - 105 mg/dL [facility] Interpretation and review of laboratory results Abnormal [facility] Glucose [Mass/Vol] 39 mg/dL Critically low 65 - 10 5 mg/dL [facility] Interpretation and review of laboratory results Abnormal [facility] Glucose [Mass/Vol] 43 mg/dL Low 65 - 105 mg/dL [facility] Glucose [Mass/Vol] 116 mg/dL High 65 - 105 mg/dL [facility] Arterial Blood Gas, POCon FIO2 30.0 [facility] HCO3 (Bld) [Moles/Vol] 26.0 mmol/L 21.0 - 28.0 mmol/L [facility] O2 Device/Flow/% Adult Ventilator [facility] Oxygen saturation in Blood 99 % High 94.0 - 98.0 % [facility] POC pCO2 38.7 [facility] POC pH 7.435 [facility] POC PO2 112.3 High [facility] Positive Base Excess, Art 2 [facility] Sample Site Arterial Line [facility] Basic Metabolic Panel w/ Ref rafael to MGon 08-05-2021 Anion gap [Moles/Vol] 11 mmol/L 9 - 17 mmol/L [facility] Calcium [Mass/Vol] 8.5 mg/dL Low 8.6 - 10. 4 mg/dL [facility] Chloride [Moles/Vol] 109 mmol/L High 98 - 10 7 mmol/L [facility] CO2 [Moles/Vol] 23 mmol/L 20 - 31 mmol/L [facility] Creatinine [Mass/Vol] 0.53 mg/dL 0.50 - 0.90 mg/dL [facility] GFR >60 >60 mL/min [facility] GFR Non- >60 >60 mL/min [facility] GFR/1.73 sq M.predicted MDRD (S/P/Bld) [Vol rate/Area] [facility] Glucose [Mass/Vol] 121 mg/dL High 70 - 99 mg/dL [facility] Interpretation and review of laboratory results Abnormal [facility] Potassium [Moles/Vol] 3.5 mmol/L Low 3.7 - 5.3 mmol/L [facility] Sodium [Moles/Vol] 143 mmol/L 135 - 144 mmol/L [facility] Urea nitrogen (BldV) [Mass/Vol] 14 mg/dL 6 - 20 mg/dL [facility] CBC with Auto Differentialon 08-05-2021 Absolute Eos # 0.25 [place] [facility] Absolute Immature Granulocyte 0.05 [facility] Absolute Lymph # 1.83 [facility] Absolute [place] # 0.57 [facility] Basophils (Bld) [#/Vol] 10*3/uL [facility] Basophils/100 WBC (Bld) 0 % 0 - 2 % [facility] Eosinophils/100 WBC (Bld) 3 % 1 - 4 % [facility] Hematocrit (Bld) [Volume fraction] 24.2 % Low 36.3 - 47.1 % [facility] Hemoglobin (Bld) [Mass/Vol] 7.7 g/dL Low 11.9 - 15.1 g/dL [facility] Immature granulocytes/100 WBC (Bld) 1 % High 0 [facility] Interpretation and review of laboratory results Abnormal [facility] Lymphocytes/100 WBC (Bld) 19 % Low 24 - 43 % [facility] MCH (RBC) [Entitic mass] 31.2 pg 25.2 - 33.5 pg [facility] MCHC (RBC) [Mass/Vol] 31.8 g/dL 28.4 - 34.8 g/dL [facility] MCV (RBC) [Entitic vol] 98.0 fL 82.6 - 102.9 fL [facility] Monocytes/100 WBC (Bld) 6 % 3 - 12 % [facility] NRBC Automated 0.0 0.0 per 100 WBC [facility] Platelet distribution width (Bld) [Ratio] 18.3 % High 11.8 - 14.4 % [facility] Platelet mean volume (Bld) [Entitic vol] 8.6 fL 8.1 - 13.5 fL [facility] Platelets (Bld) [#/Vol] 458 10*3/uL High [facility] RBC (Bld) [#/Vol] 2.47 10*6/uL Low 3.95 - 5.1 1 m/uL [facility] RBC (Bld) [#/Vol] ANISOCYTOSIS PRESENT [facility] Seg Neutrophils 71 % High 36 - 65 % [facility] Segs Absolute 6.77 [facility] WBC (Bld) [#/Vol] 9.5 10*3/uL [facility] Magnesiumon 08-05-2021 Magnesium [Mass/Vol] 1.8 mg/dL 1.6 - 2 .6 mg/dL [facility] No Panel Informationon 08-05 Interpretation and review of laboratory results Abnormal [facility] POC Glucose Fingerstickon Glucose [Mass/Vol] 130 mg/dL High 65 - 105 mg/dL [facility] Interpretation and review of laboratory results Abnormal [facility] Glucose [Mass/Vol] 139 mg/dL High 65 - 105 mg/dL [facility] Interpretation and review of laboratory results Abnormal [facility] Glucose [Mass/Vol] 126 mg/dL High 65 - 105 mg/dL [facility] Interpretation and review of laboratory results Abnormal [facility] Glucose [Mass/Vol] 151 mg/dL High 65 - 105 mg/dL [facility] Interpretation and review of laboratory results Abnormal [facility] POCT Glucoseon 08-05-2021 Glucose [Mass/Vol] 112 mg/dL High 74 - 100 mg/dL [facility] Basic Metabolic Panel w/ Ref rafael to MGon 08-04-2021 Anion gap [Moles/Vol] 11 mmol/L 9 - 17 mmol/L [facility] Calcium [Mass/Vol] 8.1 mg/dL Low 8.6 - 10. 4 mg/dL [facility] Chloride [Moles/Vol] 108 mmol/L High 98 - 10 7 mmol/L [facility] CO2 [Moles/Vol] 22 mmol/L 20 - 31 mmol/L [facility] Creatinine [Mass/Vol] 0.57 mg/dL 0.50 - 0.90 mg/dL [facility] GFR >60 >60 mL/min [facility] GFR Non- >60 >60 mL/min [facility] GFR/1.73 sq M.predicted MDRD (S/P/Bld) [Vol rate/Area] [facility] Glucose [Mass/Vol] 195 mg/dL High 70 - 99 mg/dL [facility] Interpretation and review of laboratory results Abnormal [facility] Potassium [Moles/Vol] 3.5 mmol/L Low 3.7 - 5.3 mmol/L [facility] Sodium [Moles/Vol] 141 mmol/L 135 - 144 mmol/L [facility] Urea nitrogen (BldV) [Mass/Vol] 17 mg/dL 6 - 20 mg/dL [facility] CBC with Auto Differentialon 08-04-2021 Absolute Eos # 0.24 [facility] Absolute Immature Granulocyte 0.07 [facility] Absolute Lymph # 1.77 [facility] Absolute [place] # 0.72 [facility] Basophils (Bld) [#/Vol] 10*3/uL [facility] ON [facility] Basophils/100 WBC (Bld) 0 % 0 - 2 % [facility] ON [facility] Eosinophils/100 WBC (Bld) 2 % 1 - 4 % [facility] Hematocrit (Bld) [Volume fraction] 23.7 % Low 36.3 - 47.1 % [facility] Hemoglobin (Bld) [Mass/Vol] 8.0 g/dL Low 11.9 - 15.1 g/dL [facility] Immature granulocytes/100 WBC (Bld) 1 % High 0 [facility] Interpretation and review of laboratory results Abnormal [facility] Lymphocytes/100 WBC (Bld) 17 % Low 24 - 43 % [facility] MCH (RBC) [Entitic mass] 32.3 pg 25.2 - 33.5 pg [facility] MCHC (RBC) [Mass/Vol] 33.8 g/dL 28.4 - 34.8 g/dL [facility] MCV (RBC) [Entitic vol] 95.6 fL 82.6 - 102.9 fL [facility] Monocytes/100 WBC (Bld) 7 % 3 - 12 % B ON [facility] NRBC Automated 0.0 0.0 per 100 WBC [facility] Platelet distribution width (Bld) [Ratio] 18.4 % High 11.8 - 14.4 % [facility] Platelet mean volume (Bld) [Entitic vol] 8.7 fL 8.1 - 13.5 fL [facility] Platelets (Bld) [#/Vol] 429 10*3/uL [facility] RBC (Bld) [#/Vol] 2.48 10*6/uL Low 3.95 - 5.1 1 m/uL [facility] RBC (Bld) [#/Vol] ANISOCYTOSIS PRESENT [facility] Seg Neutrophils 73 % High 36 - 65 % [facility] Segs Absolute 7.64 [facility] WBC (Bld) [#/Vol] 10.5 10*3/uL [facility] Lipaseon 08-04-2021 Lipase [Catalytic activity/Vol] 16 U/L 13 - 60 U/L [facility] Magnesiumon 08-04-2021 Magnesium [Mass/Vol] 1.9 mg/dL 1.6 - 2 .6 mg/dL [facility] POC Glucose Fingerstickon Glucose [Mass/Vol] 170 mg/dL High 65 - 105 mg/dL [facility] Interpretation and review of laboratory results Abnormal [facility] Glucose [Mass/Vol] 118 mg/dL High 65 - 105 mg/dL [facility] Interpretation and review of laboratory results Abnormal [facility] Glucose [Mass/Vol] 226 mg/dL High 65 - 105 mg/dL [facility] Interpretation and review of laboratory results Abnormal [facility] Glucose [Mass/Vol] 192 mg/dL High 65 - 105 mg/dL [facility] Interpretation and review of laboratory results Abnormal [facility] Arterial Blood Gas, POCon Adarsh Test NOT APPLICABLE [facility] FIO2 30.0 [facility] HCO3 (Bld) [Moles/Vol] 24.5 mmol/L 21.0 - 28.0 mmol/L [facility] Mode PRVC [facility] O2 Device/Flow/% Adult Ventilator [facility] Oxygen saturation in Blood 99 % High 94.0 - 98.0 % [facility] POC pCO2 31.7 Low [facility] POC pH 7.497 High [facility] POC PO2 116.0 High [facility] Positive Base Excess, Art 2 [facility] Sample Site Arterial Line [facility] Basic Metabolic Panel w/ Ref rafael to MGon 08-03-2021 Anion gap [Moles/Vol] 10 mmol/L 9 - 17 mmol/L [facility] Calcium [Mass/Vol] 8.3 mg/dL Low 8.6 - 10. 4 mg/dL [facility] Chloride [Moles/Vol] 107 mmol/L 98 - 10 7 mmol/L [facility] CO2 [Moles/Vol] 22 mmol/L 20 - 31 mmol/L [facility] Creatinine [Mass/Vol] 0.6 mg/dL 0.50 - 0.90 mg/dL [facility] GFR >60 >60 mL/min [facility] GFR Non- >60 >60 mL/min [facility] GFR/1.73 sq M.predicted MDRD (S/P/Bld) [Vol rate/Area] [facility] Glucose [Mass/Vol] 210 mg/dL High 70 - 99 mg/dL [facility] Interpretation and review of laboratory results Abnormal [facility] Potassium [Moles/Vol] 3.6 mmol/L Low 3.7 - 5.3 mmol/L [facility] Sodium [Moles/Vol] 139 mmol/L 135 - 144 mmol/L [facility] Urea nitrogen (BldV) [Mass/Vol] 15 mg/dL 6 - 20 mg/dL [facility] CBC with Auto Differentialon 08-03-2021 Absolute Eos # 0.19 [place] [facility] Absolute Immature Granulocyte 0.11 [facility] Absolute Lymph # 1.74 [facility] Absolute [place] # 0.92 [facility] Basophils (Bld) [#/Vol] 0.03 10*3/uL [facility] Basophils/100 WBC (Bld) 0 % 0 - 2 % [facility] Eosinophils/100 WBC (Bld) 2 % 1 - 4 % [facility] Hematocrit (Bld) [Volume fraction] 24.8 % Low 36.3 - 47.1 % [facility] Hemoglobin (Bld) [Mass/Vol] 8.3 g/dL Low 11.9 - 15.1 g/dL [facility] Immature granulocytes/100 WBC (Bld) 1 % High 0 [facility] Interpretation and review of laboratory results Abnormal [facility] Lymphocytes/100 WBC (Bld) 15 % Low 24 - 43 % [facility] MCH (RBC) [Entitic mass] 31.6 pg 25.2 - 33.5 pg [facility] MCHC (RBC) [Mass/Vol] 33.5 g/dL 28.4 - 34.8 g/dL [facility] MCV (RBC) [Entitic vol] 94.3 fL 82.6 - 102.9 fL [facility] Monocytes/100 WBC (Bld) 8 % 3 - 12 % B ON [facility] NRBC Automated 0.0 0.0 per 100 WBC [facility] Platelet distribution width (Bld) [Ratio] 18.5 % High 11.8 - 14.4 % [facility] Platelet mean volume (Bld) [Entitic vol] 8.8 fL 8.1 - 13.5 fL [facility] Platelets (Bld) [#/Vol] 429 10*3/uL [facility] RBC (Bld) [#/Vol] 2.63 10*6/uL Low 3.95 - 5.1 1 m/uL [facility] RBC (Bld) [#/Vol] ANISOCYTOSIS PRESENT [facility] Seg Neutrophils 74 % High 36 - 65 % [facility] Segs Absolute 8.94 High [facility] WBC (Bld) [#/Vol] 11.9 10*3/uL High [facility] No Panel Informationon 08-03 Interpretation and review of laboratory results Abnormal [facility] POC Glucose Fingerstickon Glucose [Mass/Vol] 302 mg/dL High 65 - 105 mg/dL [facility] Interpretation and review of laboratory results Abnormal [facility] Glucose [Mass/Vol] 246 mg/dL High 65 - 105 mg/dL [facility] Interpretation and review of laboratory results Abnormal [facility] Glucose [Mass/Vol] 196 mg/dL High 65 - 105 mg/dL [facility] Interpretation and review of laboratory results Abnormal [facility] Glucose [Mass/Vol] 222 mg/dL High 65 - 105 mg/dL [facility] Interpretation and review of laboratory results Abnormal [facility] Glucose [Mass/Vol] 216 mg/dL High 65 - 105 mg/dL [facility] Interpretation and review of laboratory results Abnormal [facility] POCT Glucoseon 08-03-2021 Glucose [Mass/Vol] 218 mg/dL High 74 - 100 mg/dL [facility] Arterial Blood Gas, POCon Adarsh Test NOT APPLICABLE [facility] FIO2 30.0 [facility] HCO3 (Bld) [Moles/Vol] 24.2 mmol/L 21.0 - 28.0 mmol/L [facility] Mode PRVC [facility] O2 Device/Flow/% Adult Ventilator [place] N [facility] Oxygen saturation in Blood 99 % High 94.0 - 98.0 % [facility] POC pCO2 35.7 [facility] POC pH 7.439 [facility] POC PO2 119.9 High [facility] Positive Base Excess, Art 0 [facility] Sample Site Arterial Line [facility] Basic Metabolic Panel w/ Ref rafael to MGon 08-02-2021 Anion gap [Moles/Vol] 9 mmol/L 9 - 17 mmol/L [facility] Calcium [Mass/Vol] 8.0 mg/dL Low 8.6 - 10. 4 mg/dL [facility] Chloride [Moles/Vol] 106 mmol/L 98 - 10 7 mmol/L [facility] CO2 [Moles/Vol] 22 mmol/L 20 - 31 mmol/L [facility] Creatinine [Mass/Vol] 0.67 mg/dL 0.50 - 0.90 mg/dL [facility] GFR >60 >60 mL/min [facility] GFR Non- >60 >60 mL/min [facility] GFR/1.73 sq M.predicted MDRD (S/P/Bld) [Vol rate/Area] [facility] Glucose [Mass/Vol] 247 mg/dL High 70 - 99 mg/dL [facility] Interpretation and review of laboratory results Abnormal [facility] Potassium [Moles/Vol] 3.3 mmol/L Low 3.7 - 5.3 mmol/L [facility] Sodium [Moles/Vol] 137 mmol/L 135 - 144 mmol/L [facility] Urea nitrogen (BldV) [Mass/Vol] 15 mg/dL 6 - 20 mg/dL [facility] CBC with Auto Differentialon 08-02-2021 Absolute [place] # 0.15 [place] [facility] Absolute Immature Granulocyte 0.26 [facility] Absolute Lymph # 1.97 [facility] Absolute [place] # 0.99 [facility] Basophils (Bld) [#/Vol] 0.04 10*3/uL [facility] Basophils/100 WBC (Bld) 0 % 0 - 2 % [facility] Eosinophils/100 WBC (Bld) 1 % 1 - 4 % [facility] Hematocrit (Bld) [Volume fraction] 23.5 % Low 36.3 - 47.1 % [facility] Hemoglobin (Bld) [Mass/Vol] 8.0 g/dL Low 11.9 - 15.1 g/dL [facility] Immature granulocytes/100 WBC (Bld) 2 % High 0 [facility] Interpretation and review of laboratory results Abnormal [facility] Lymphocytes/100 WBC (Bld) 16 % Low 24 - 43 % [facility] MCH (RBC) [Entitic mass] 32.0 pg 25.2 - 33.5 pg [facility] MCHC (RBC) [Mass/Vol] 34.0 g/dL 28.4 - 34.8 g/dL [facility] MCV (RBC) [Entitic vol] 94.0 fL 82.6 - 102.9 fL [facility] Monocytes/100 WBC (Bld) 8 % 3 - 12 % B ON [facility] NRBC Automated 0.0 0.0 per 100 WBC [facility] Platelet distribution width (Bld) [Ratio] 18.5 % High 11.8 - 14.4 % [facility] Platelet mean volume (Bld) [Entitic vol] 8.4 fL 8.1 - 13.5 fL [facility] Platelets (Bld) [#/Vol] 398 10*3/uL [facility] RBC (Bld) [#/Vol] 2.50 10*6/uL Low 3.95 - 5.1 1 m/uL [facility] RBC (Bld) [#/Vol] ANISOCYTOSIS PRESENT [facility] Seg Neutrophils 73 % High 36 - 65 % [facility] Segs Absolute 8.88 High [facility] WBC (Bld) [#/Vol] 12.3 10*3/uL High [facility] Magnesiumon 08-02-2021 Magnesium [Mass/Vol] 1.7 mg/dL 1.6 - 2 .6 mg/dL [facility] No Panel Informationon 08-02 Interpretation and review of laboratory results Abnormal [facility] POC Glucose Fingerstickon Glucose [Mass/Vol] 194 mg/dL High 65 - 105 mg/dL [facility] Interpretation and review of laboratory results Abnormal [facility] Glucose [Mass/Vol] 112 mg/dL High 65 - 105 mg/dL [facility] Interpretation and review of laboratory results Abnormal [facility] Glucose [Mass/Vol] 172 mg/dL High 65 - 105 mg/dL [facility] Interpretation and review of laboratory results Abnormal [facility] Glucose [Mass/Vol] 251 mg/dL High 65 - 105 mg/dL [facility] Interpretation and review of laboratory results Abnormal [facility] Glucose [Mass/Vol] 240 mg/dL High 65 - 105 mg/dL [facility] Interpretation and review of laboratory results Abnormal [facility] POCT Glucoseon 08-02-2021 Glucose [Mass/Vol] 286 mg/dL High 74 - 100 mg/dL [facility] Basic Metabolic Panel w/ Ref rafael to MGon 08-01-2021 Anion gap [Moles/Vol] 13 mmol/L 9 - 17 mmol/L [facility] Calcium [Mass/Vol] 7.9 mg/dL Low 8.6 - 10. 4 mg/dL [facility] Chloride [Moles/Vol] 105 mmol/L 98 - 10 7 mmol/L [facility] CO2 [Moles/Vol] 20 mmol/L 20 - 31 mmol/L [facility] Creatinine [Mass/Vol] 0.72 mg/dL 0.50 - 0.90 mg/dL [facility] GFR >60 >60 mL/min [facility] GFR Non- >60 >60 mL/min [facility] GFR/1.73 sq M.predicted MDRD (S/P/Bld) [Vol rate/Area] [facility] Glucose [Mass/Vol] 212 mg/dL High 70 - 99 mg/dL [facility] Interpretation and review of laboratory results Abnormal [facility] Potassium [Moles/Vol] 3.2 mmol/L Low 3.7 - 5.3 mmol/L [facility] Sodium [Moles/Vol] 138 mmol/L 135 - 144 mmol/L [facility] Urea nitrogen (BldV) [Mass/Vol] 15 mg/dL 6 - 20 mg/dL [facility] CBC with Auto Differentialon 08-01-2021 Absolute Eos # 0.14 [place] [facility] Absolute Immature Granulocyte 0.56 High [facility] Absolute Lymph # 2.66 [facility] Absolute [place] # 0.70 [facility] Basophils (Bld) [#/Vol] 0.00 10*3/uL [facility] Basophils/100 WBC (Bld) 0 % 0 - 2 % B ON [facility] Eosinophils/100 WBC (Bld) 1 % 1 - 4 % [facility] Hematocrit (Bld) [Volume fraction] 27.1 % Low 36.3 - 47.1 % [facility] Hemoglobin (Bld) [Mass/Vol] 9.1 g/dL Low 11.9 - 15.1 g/dL [facility] Immature granulocytes/100 WBC (Bld) 4 % High 0 [facility] Interpretation and review of laboratory results Abnormal [facility] Lymphocytes/100 WBC (Bld) 19 % Low 24 - 44 % [facility] MCH (RBC) [Entitic mass] 31.7 pg 25.2 - 33.5 pg [facility] MCHC (RBC) [Mass/Vol] 33.6 g/dL 28.4 - 34.8 g/dL [facility] MCV (RBC) [Entitic vol] 94.4 fL 82.6 - 102.9 fL [facility] Monocytes/100 WBC (Bld) 5 % 1 - 7 % [facility] ON [facility] Morphology Malachi (Bld) [Interp] ANISOCYTOSIS PRESENT [facility] NRBC Automated 0.0 0.0 per 100 WBC [facility] Platelet distribution width (Bld) [Ratio] 18.8 % High 11.8 - 14.4 % [facility] Platelet mean volume (Bld) [Entitic vol] 8.7 fL 8.1 - 13.5 fL [facility] Platelets (Bld) [#/Vol] 490 10*3/uL High [facility] RBC (Bld) [#/Vol] 2.87 10*6/uL Low 3.95 - 5.1 1 m/uL [facility] Seg Neutrophils 71 % High 36 - 66 % [facility] Segs Absolute 9.94 High [facility] WBC (Bld) [#/Vol] 14.0 10*3/uL High [facility] Magnesiumon 08-01-2021 Magnesium [Mass/Vol] 1.7 mg/dL 1.6 - 2 .6 mg/dL [facility] POC Glucose Fingerstickon Glucose [Mass/Vol] 124 mg/dL High 65 - 105 mg/dL [facility] Interpretation and review of laboratory results Abnormal [facility] Glucose [Mass/Vol] 201 mg/dL High 65 - 105 mg/dL [facility] Interpretation and review of laboratory results Abnormal [facility] Glucose [Mass/Vol] 264 mg/dL High 65 - 105 mg/dL [facility] Interpretation and review of laboratory results Abnormal [facility] Glucose [Mass/Vol] 184 mg/dL High 65 - 105 mg/dL [facility] Interpretation and review of laboratory results Abnormal [facility] Glucose [Mass/Vol] 241 mg/dL High 65 - 105 mg/dL [facility] Interpretation and review of laboratory results Abnormal [facility] Triglycerideon 08-01-2021 Interpretation and review of laboratory results Abnormal [facility] Triglyceride [Mass/Vol] 164 mg/dL High <150 [facility] ON [facility]ENTERMedallion Analytics SoftwareADVENTHEALTH HENDERSONVILLETopcom Europe [facility] Basic Metabolic Panel w/ Ref rafael to MGon 07-31-2021 Anion gap [Moles/Vol] 14 mmol/L 9 - 17 mmol/L [facility] Calcium [Mass/Vol] 8.0 mg/dL Low 8.6 - 10. 4 mg/dL [facility] Chloride [Moles/Vol] 106 mmol/L 98 - 10 7 mmol/L [facility] CO2 [Moles/Vol] 20 mmol/L 20 - 31 mmol/L [facility] Creatinine [Mass/Vol] 0.78 mg/dL 0.50 - 0.90 mg/dL [facility] GFR >60 >60 mL/min [facility] GFR Non- >60 >60 mL/min [facility]AS[facility] GFR/1.73 sq M.predicted MDRD (S/P/Bld) [Vol rate/Area] [facility]PITALMedallion Analytics SoftwareASHTABUL[facility] Glucose [Mass/Vol] 209 mg/dL High 70 - 99 mg/dL [facility] Interpretation and review of laboratory results Abnormal [facility] Potassium [Moles/Vol] 3.3 mmol/L Low 3.7 - 5.3 mmol/L [facility] Sodium [Moles/Vol] 140 mmol/L 135 - 144 mmol/L [facility] Urea nitrogen (BldV) [Mass/Vol] 14 mg/dL 6 - 20 mg/dL [facility] CBC with Auto Differentialon 07-31-2021 Absolute Eos # 0.28 [place] [facility] Absolute Immature Granulocyte 0.98 High [facility] Absolute Lymph # 2.94 [facility] Absolute [place] # 0.98 High [facility] RS [facility] Basophils (Bld) [#/Vol] 0.00 10*3/uL [facility] Basophils/100 WBC (Bld) 0 % 0 - 2 % B ON [facility] Eosinophils/100 WBC (Bld) 2 % 1 - 4 % [facility] Hematocrit (Bld) [Volume fraction] 27.4 % Low 36.3 - 47.1 % [facility] Hemoglobin (Bld) [Mass/Vol] 9.5 g/dL Low 11.9 - 15.1 g/dL [facility] Immature granulocytes/100 WBC (Bld) 7 % High 0 [facility] Interpretation and review of laboratory results Abnormal [facility] Lymphocytes/100 WBC (Bld) 21 % Low 24 - 44 % [facility] MCH (RBC) [Entitic mass] 31.8 pg 25.2 - 33.5 pg [facility] MCHC (RBC) [Mass/Vol] 34.7 g/dL 28.4 - 34.8 g/dL [facility] MCV (RBC) [Entitic vol] 91.6 fL 82.6 - 102.9 fL [facility] Monocytes/100 WBC (Bld) 7 % 1 - 7 % B ON [facility] Morphology Malachi (Bld) [Interp] ANISOCYTOSIS PRESENT [facility] NRBC Automated 0.0 0.0 per 100 WBC [facility] Platelet distribution width (Bld) [Ratio] 18.4 % High 11.8 - 14.4 % [facility] Platelet mean volume (Bld) [Entitic vol] 8.7 fL 8.1 - 13.5 fL [facility] Platelets (Bld) [#/Vol] 502 10*3/uL High [facility] RBC (Bld) [#/Vol] 2.99 10*6/uL Low 3.95 - 5.1 1 m/uL [facility] Seg Neutrophils 63 % 36 - 66 % [facility] Segs Absolute 8.82 High [facility] WBC (Bld) [#/Vol] 14.0 10*3/uL High [facility] Hemoglobin and Hematocriton 07-31-2021 Hematocrit (Bld) [Volume fraction] 27.4 % Low 36.3 - 47.1 % [facility] Hemoglobin (Bld) [Mass/Vol] 9.2 g/dL Low 11.9 - 15.1 g/dL [facility] Interpretation and review of laboratory results Abnormal [facility] Magnesiumon 07-31-2021 Magnesium [Mass/Vol] 1.6 mg/dL 1.6 - 2 .6 mg/dL [facility] POC Glucose Fingerstickon Glucose [Mass/Vol] 134 mg/dL High 65 - 105 mg/dL [facility] Interpretation and review of laboratory results Abnormal [facility] Glucose [Mass/Vol] 230 mg/dL High 65 - 105 mg/dL [facility] Interpretation and review of laboratory results Abnormal [facility] Glucose [Mass/Vol] 214 mg/dL High 65 - 105 mg/dL [facility] Interpretation and review of laboratory results Abnormal [facility] Glucose [Mass/Vol] 197 mg/dL High 65 - 105 mg/dL [facility] Interpretation and review of laboratory results Abnormal [facility] Glucose [Mass/Vol] 164 mg/dL High 65 - 105 mg/dL [facility] Interpretation and review of laboratory results Abnormal [facility] Arterial Blood Gas, POCon Adarsh Test NOT APPLICABLE [facility] FIO2 30.0 [facility] HCO3 (Bld) [Moles/Vol] 24.4 mmol/L 21.0 - 28.0 mmol/L [facility] Interpretation and review of laboratory results Abnormal [facility] Mode PRVC [facility] O2 Device/Flow/% Adult Ventilator [facility] Oxygen saturation in Blood 98 % 94.0 - 98.0 % [facility] POC pCO2 33.3 Low [facility] POC pH 7.473 High [facility] POC PO2 104.7 [facility] Positive Base Excess, Art 1 [facility] Sample Site Arterial Line [facility] Basic Metabolic Panel w/ Ref rafael to MGon 07-30-2021 Anion gap [Moles/Vol] 10 mmol/L 9 - 17 mmol/L [facility] Calcium [Mass/Vol] 8.0 mg/dL Low 8.6 - 10. 4 mg/dL [facility] Chloride [Moles/Vol] 105 mmol/L 98 - 10 7 mmol/L [facility] CO2 [Moles/Vol] 22 mmol/L 20 - 31 mmol/L [facility] Creatinine [Mass/Vol] 0.7 mg/dL 0.50 - 0.90 mg/dL [facility] GFR >60 >60 mL/min [facility] GFR Non- >60 >60 mL/min [facility] GFR/1.73 sq M.predicted MDRD (S/P/Bld) [Vol rate/Area] [facility] Glucose [Mass/Vol] 276 mg/dL High 70 - 99 mg/dL [facility] Interpretation and review of laboratory results Abnormal [facility] Potassium [Moles/Vol] 3.8 mmol/L 3.7 - 5.3 mmol/L [facility] Sodium [Moles/Vol] 137 mmol/L 135 - 144 mmol/L [facility] Urea nitrogen (BldV) [Mass/Vol] 14 mg/dL 6 - 20 mg/dL [facility] CBC with Auto Differentialon 07-30-2021 Absolute Eos # 0.00 [place] [facility] Absolute Immature Granulocyte 0.71 High [facility] Absolute Lymph # 3.69 [facility] Absolute [place] # 0.57 [facility] Basophils (Bld) [#/Vol] 0.00 10*3/uL [facility] Basophils/100 WBC (Bld) 0 % 0 - 2 % B ON [facility] Eosinophils/100 WBC (Bld) 0 % Low 1 - 4 % [facility] Hematocrit (Bld) [Volume fraction] 27.0 % Low 36.3 - 47.1 % [facility] Hemoglobin (Bld) [Mass/Vol] 9.3 g/dL Low 11.9 - 15.1 g/dL [facility] Immature granulocytes/100 WBC (Bld) 5 % High 0 [facility] Interpretation and review of laboratory results Abnormal [facility] Lymphocytes/100 WBC (Bld) 26 % 24 - 44 % [facility] MCH (RBC) [Entitic mass] 31.5 pg 25.2 - 33.5 pg [facility] MCHC (RBC) [Mass/Vol] 34.4 g/dL 28.4 - 34.8 g/dL [facility] MCV (RBC) [Entitic vol] 91.5 fL 82.6 - 102.9 fL [facility] Monocytes/100 WBC (Bld) 4 % 1 - 7 % B ON [facility] Morphology Malachi (Bld) [Interp] ANISOCYTOSIS PRESENT [facility] NRBC Automated 0.0 0.0 per 100 WBC [facility] Platelet distribution width (Bld) [Ratio] 17.7 % High 11.8 - 14.4 % [facility] Platelet mean volume (Bld) [Entitic vol] 8.8 fL 8.1 - 13.5 fL [facility] Platelets (Bld) [#/Vol] 491 10*3/uL High [facility] RBC (Bld) [#/Vol] 2.95 10*6/uL Low 3.95 - 5.1 1 m/uL [facility] Seg Neutrophils 65 % 36 - 66 % [facility] Segs Absolute 9.23 High [facility] WBC (Bld) [#/Vol] 14.2 10*3/uL High [facility] Hemoglobin and Hematocriton 07-30-2021 Hematocrit (Bld) [Volume fraction] 29.5 % Low 36.3 - 47.1 % [facility] Hemoglobin (Bld) [Mass/Vol] 9.6 g/dL Low 11.9 - 15.1 g/dL [facility] Interpretation and review of laboratory results Abnormal [facility] POC Glucose Fingerstickon Glucose [Mass/Vol] 106 mg/dL High 65 - 105 mg/dL [facility] Interpretation and review of laboratory results Abnormal [facility] Glucose [Mass/Vol] 231 mg/dL High 65 - 105 mg/dL [facility] Interpretation and review of laboratory results Abnormal [facility] TYPE AND SCREENon 07-30-2021 ABO/Rh Positive [facility] Arm Band Number BE [id number] [facility] Blood Bank Blood Product Expiration Date [id number] [facility] Blood Bank ISBT Product Blood Type 6200 [facility] Blood Bank Unit Type and Rh Positive [facility] Blood product type Nom (BPU) Leukocyte Reduced Red Cell [facility] Blood product unit ID (Dose) [#] [id number] [facility] Crossmatch Result COMPATIBLE [facility] Dispense Status TRANSFUSED [facility] Expiration Date 08/01/2021,2354 [facility] Product Code Blood Bank [id number] B ON [facility] Transfusion Status OK TO TRANSFUSE B ON [facility] Unit Divison 0 [facility] Unit Issue Date/Time [id number] [place] [facility] Arterial Blood Gas, POCon Adarsh Test NOT APPLICABLE [facility] FIO2 30.0 [facility] HCO3 (Bld) [Moles/Vol] 23.0 mmol/L 21.0 - 28.0 mmol/L [facility] Interpretation and review of laboratory results Abnormal [facility] Mode PRVC [facility] Negative Base Excess, Art 1 [facility] O2 Device/Flow/% Adult Ventilator [place] N [facility] Oxygen saturation in Blood 99 % High 94.0 - 98.0 % [facility] POC pCO2 35.1 [facility] POC pH 7.425 [facility] POC PO2 120.9 High [facility] Sample Site Arterial Line [facility] Basic Metabolic Panel w/ Ref rafael to MGon 07-29-2021 Anion gap [Moles/Vol] 9 mmol/L 9 - 17 mmol/L [facility] Calcium [Mass/Vol] 7.8 mg/dL Low 8.6 - 10. 4 mg/dL [facility] Chloride [Moles/Vol] 106 mmol/L 98 - 10 7 mmol/L [facility] CO2 [Moles/Vol] 21 mmol/L 20 - 31 mmol/L [facility] Creatinine [Mass/Vol] 0.71 mg/dL 0.50 - 0.90 mg/dL [facility] GFR >60 >60 mL/min [facility] GFR Non- >60 >60 mL/min [facility] GFR/1.73 sq M.predicted MDRD (S/P/Bld) [Vol rate/Area] [facility] Glucose [Mass/Vol] 246 mg/dL High 70 - 99 mg/dL [facility] Interpretation and review of laboratory results Abnormal [facility] Potassium [Moles/Vol] 3.6 mmol/L Low 3.7 - 5.3 mmol/L [facility] Sodium [Moles/Vol] 136 mmol/L 135 - 144 mmol/L [facility] Urea nitrogen (BldV) [Mass/Vol] 11 mg/dL 6 - 20 mg/dL [facility] CBC with Auto Differentialon 07-29-2021 Absolute Eos # 0.00 [place] [facility] Absolute Immature Granulocyte 0.43 High [facility] Absolute Lymph # 3.13 [facility] Absolute [place] # 0.32 [facility] Basophils (Bld) [#/Vol] 0.00 10*3/uL [facility] Basophils/100 WBC (Bld) 0 % 0 - 2 % B ON [facility] Eosinophils/100 WBC (Bld) 0 % Low 1 - 4 % [facility] Hematocrit (Bld) [Volume fraction] 22.5 % Low 36.3 - 47.1 % [facility] Hemoglobin (Bld) [Mass/Vol] 7.4 g/dL Low 11.9 - 15.1 g/dL [facility] Immature granulocytes/100 WBC (Bld) 4 % High 0 [facility] Interpretation and review of laboratory results Abnormal [facility] Lymphocytes/100 WBC (Bld) 29 % 24 - 44 % [facility] MCH (RBC) [Entitic mass] 30.7 pg 25.2 - 33.5 pg [facility] MCHC (RBC) [Mass/Vol] 32.9 g/dL 28.4 - 34.8 g/dL [facility] MCV (RBC) [Entitic vol] 93.4 fL 82.6 - 102.9 fL [facility] Monocytes/100 WBC (Bld) 3 % 1 - 7 % B ON [facility] Morphology Malachi (Bld) [Interp] ANISOCYTOSIS PRESENT [facility] NRBC Automated 0.0 0.0 per 100 WBC [facility] Platelet distribution width (Bld) [Ratio] 19.6 % High 11.8 - 14.4 % [facility] Platelet mean volume (Bld) [Entitic vol] 8.9 fL 8.1 - 13.5 fL [facility] Platelets (Bld) [#/Vol] 500 10*3/uL High [facility] RBC (Bld) [#/Vol] 2.41 10*6/uL Low 3.95 - 5.1 1 m/uL [facility] Seg Neutrophils 64 % 36 - 66 % [facility] Segs Absolute 6.92 [facility] WBC (Bld) [#/Vol] 10.8 10*3/uL [facility] Hemoglobin and Hematocriton 07-29-2021 Hematocrit (Bld) [Volume fraction] 29.9 % Low 36.3 - 47.1 % [facility] Hemoglobin (Bld) [Mass/Vol] 10.1 g/dL Low 11.9 - 15.1 g/dL [facility] Interpretation and review of laboratory results Abnormal [facility] Hematocrit (Bld) [Volume fraction] 24.9 % Low 36.3 - 47.1 % [facility] Hemoglobin (Bld) [Mass/Vol] 8.4 g/dL Low 11.9 - 15.1 g/dL [facility] Interpretation and review of laboratory results Abnormal [facility] POC Glucose Fingerstickon Glucose [Mass/Vol] 169 mg/dL High 65 - 105 mg/dL [facility] Interpretation and review of laboratory results Abnormal [facility] Glucose [Mass/Vol] 296 mg/dL High 65 - 105 mg/dL [facility] Interpretation and review of laboratory results Abnormal [facility] Glucose [Mass/Vol] 276 mg/dL High 65 - 105 mg/dL [facility] Interpretation and review of laboratory results Abnormal [facility] Glucose [Mass/Vol] 217 mg/dL High 65 - 105 mg/dL [facility] Interpretation and review of laboratory results Abnormal [facility] Arterial Blood Gas, POCon FIO2 30.0 [facility] HCO3 (Bld) [Moles/Vol] 22.0 mmol/L 21.0 - 28.0 mmol/L [facility] Mode PRVC [facility] Negative Base Excess, Art 2 [facility] O2 Device/Flow/% Adult Ventilator [place] N [facility] Oxygen saturation in Blood 98 % 94.0 - 98.0 % [facility] POC pCO2 30.9 Low [facility] POC pH 7.460 High [facility] POC PO2 101.0 [facility] Sample Site Arterial Line [facility] Basic Metabolic Panel w/ Ref rafael to MGon 07-28-2021 Anion gap [Moles/Vol] 9 mmol/L 9 - 17 mmol/L [facility] Calcium [Mass/Vol] 8.1 mg/dL Low 8.6 - 10. 4 mg/dL [facility] Chloride [Moles/Vol] 108 mmol/L High 98 - 10 7 mmol/L [facility] CO2 [Moles/Vol] 20 mmol/L 20 - 31 mmol/L [facility] Creatinine [Mass/Vol] 0.73 mg/dL 0.50 - 0.90 mg/dL [facility] GFR >60 >60 mL/min [facility] GFR Non- >60 >60 mL/min [facility] GFR/1.73 sq M.predicted MDRD (S/P/Bld) [Vol rate/Area] [facility] Glucose [Mass/Vol] 195 mg/dL High 70 - 99 mg/dL [facility] Interpretation and review of laboratory results Abnormal [facility] Potassium [Moles/Vol] 4.2 mmol/L 3.7 - 5.3 mmol/L [facility] Sodium [Moles/Vol] 137 mmol/L 135 - 144 mmol/L [facility] Urea nitrogen (BldV) [Mass/Vol] 8 mg/dL 6 - 20 mg/dL [facility] CBC with Auto Differentialon 07-28-2021 Absolute Eos # 0.00 [place] [facility] Absolute Immature Granulocyte 0.64 High [facility] Absolute Lymph # 2.69 [facility] Absolute [place] # 0.00 Low [facility] Basophils (Bld) [#/Vol] 0.00 10*3/uL [facility] Basophils/100 WBC (Bld) 0 % 0 - 2 % B ON [facility] Eosinophils/100 WBC (Bld) 0 % Low 1 - 4 % [facility] Hematocrit (Bld) [Volume fraction] 24.4 % Low 36.3 - 47.1 % [facility] Hemoglobin (Bld) [Mass/Vol] 7.9 g/dL Low 11.9 - 15.1 g/dL [facility] Immature granulocytes/100 WBC (Bld) 5 % High 0 [facility] Interpretation and review of laboratory results Abnormal [facility] Lymphocytes/100 WBC (Bld) 21 % Low 24 - 44 % [facility] MCH (RBC) [Entitic mass] 30.5 pg 25.2 - 33.5 pg [facility] MCHC (RBC) [Mass/Vol] 32.4 g/dL 28.4 - 34.8 g/dL [facility] MCV (RBC) [Entitic vol] 94.2 fL 82.6 - 102.9 fL [facility] Monocytes/100 WBC (Bld) 0 % Low 1 - 7 % B ON [facility] Morphology Malachi (Bld) [Interp] ANISOCYTOSIS PRESENT [facility] NRBC Automated 0.0 0.0 per 100 WBC [facility] Platelet distribution width (Bld) [Ratio] 19.0 % High 11.8 - 14.4 % [facility] Platelet mean volume (Bld) [Entitic vol] 8.8 fL 8.1 - 13.5 fL [facility] Platelets (Bld) [#/Vol] 490 10*3/uL High [facility] RBC (Bld) [#/Vol] 2.59 10*6/uL Low 3.95 - 5.1 1 m/uL [facility] Seg Neutrophils 74 % High 36 - 66 % [facility] Segs Absolute 9.47 High [facility] WBC (Bld) [#/Vol] 12.8 10*3/uL High [facility] Calcium, Ionizedon 06-11-202 2 Calcium [Moles/Vol] 1.15 mmol/L 1.13 - 1 .33 mmol/L [facility] Hemoglobin and Hematocriton 07-28-2021 Hematocrit (Bld) [Volume fraction] 23.9 % Low 36.3 - 47.1 % [facility] Hemoglobin (Bld) [Mass/Vol] 8.2 g/dL Low 11.9 - 15.1 g/dL [facility] Interpretation and review of laboratory results Abnormal [facility] No Panel Informationon 07-28 Interpretation and review of laboratory results Abnormal [facility] POC Glucose Fingerstickon Glucose [Mass/Vol] 183 mg/dL High 65 - 105 mg/dL [facility] Interpretation and review of laboratory results Abnormal [facility] Glucose [Mass/Vol] 187 mg/dL High 65 - 105 mg/dL [facility] Interpretation and review of laboratory results Abnormal [facility] Glucose [Mass/Vol] 163 mg/dL High 65 - 105 mg/dL [facility] Interpretation and review of laboratory results Abnormal [facility] Glucose [Mass/Vol] 182 mg/dL High 65 - 105 mg/dL [facility] Interpretation and review of laboratory results Abnormal [facility] POCT Glucoseon 07-28-2021 Glucose [Mass/Vol] 177 mg/dL High 74 - 100 mg/dL [facility] CBC with Auto Differentialon 07-27-2021 Basophils (Bld) [#/Vol] 0.00 10*3/uL [facility] Basophils/100 WBC (Bld) 0 % 0 - 2 % [facility] Eosinophils/100 WBC (Bld) 0 % Low 1 - 4 % [facility] Hematocrit (Bld) [Volume fraction] 25.3 % Low 36.3 - 47.1 % [facility] Hemoglobin (Bld) [Mass/Vol] 8.5 g/dL Low 11.9 - 15.1 g/dL [facility] Lymphocytes/100 WBC (Bld) 19 % Low 24 - 44 % [facility] MCH (RBC) [Entitic mass] 30.6 pg 25.2 - 33.5 pg [facility] MCV (RBC) [Entitic vol] 91.0 fL 82.6 - 102.9 fL [facility] Morphology Malachi (Bld) [Interp] ANISOCYTOSIS PRESENT [facility] RBC (Bld) [#/Vol] 2.78 10*6/uL Low 3.95 - 5.1 1 m/uL [facility] Calcium, Ionizedon 2 Calcium [Moles/Vol] 1.19 mmol/L 1.13 - 1 .33 mmol/L [facility] Culture, Blood 2on 2 Bacteria identified Cx Nom (Unsp spec) NO GROWTH 5 DAYS [facility] Special Requests L HAND 20ML [facility] Specimen Description .BLOOD [facility] Hemoglobin and Hematocriton 07-27-2021 Hematocrit (Bld) [Volume fraction] 26.4 % Low 36.3 - 47.1 % [facility] Hemoglobin (Bld) [Mass/Vol] 9.0 g/dL Low 11.9 - 15.1 g/dL [facility] Interpretation and review of laboratory results Abnormal [facility] Magnesiumon 07-27-2021 Magnesium [Mass/Vol] 1.8 mg/dL 1.6 - 2 .6 mg/dL [facility] POC Glucose Fingerstickon Glucose [Mass/Vol] 149 mg/dL High 65 - 105 mg/dL [facility] Interpretation and review of laboratory results Abnormal [facility] Glucose [Mass/Vol] 162 mg/dL High 65 - 105 mg/dL [facility] Interpretation and review of laboratory results Abnormal [facility] Glucose [Mass/Vol] 160 mg/dL High 65 - 105 mg/dL [facility] Interpretation and review of laboratory results Abnormal [facility] Glucose [Mass/Vol] 147 mg/dL High 65 - 105 mg/dL [facility] Interpretation and review of laboratory results Abnormal [facility] Glucose [Mass/Vol] 135 mg/dL High 65 - 105 mg/dL [facility] Interpretation and review of laboratory results Abnormal [facility] Glucose [Mass/Vol] 204 mg/dL High 65 - 105 mg/dL [facility] Interpretation and review of laboratory results Abnormal [facility] Basic Metabolic Panel w/ Ref rafael to MGon 07-14-2021 Anion gap [Moles/Vol] 14 mmol/L 9 - 17 mmol/L [facility] Calcium [Mass/Vol] 8.2 mg/dL Low 8.6 - 10. 4 mg/dL [facility] Chloride [Moles/Vol] 97 mmol/L Low 98 - 10 7 mmol/L [facility] CO2 [Moles/Vol] 30 mmol/L 20 - 31 mmol/L [facility] Creatinine [Mass/Vol] 0.92 mg/dL High 0.50 - 0.90 mg/dL [facility] GFR >60 >60 mL/min [facility] GFR Non- >60 >60 mL/min [facility] GFR/1.73 sq M.predicted MDRD (S/P/Bld) [Vol rate/Area] [facility] Comment on above: Average GFR for 50-5 9 years old: 93 mL/min/1.73sq m Chronic Kidney Disease: <60 mL/min/1.73sq m Kidney failure: <15 mL/min/1.73sq m eGFR calculated using average adult body mass. Additional eGFR calculator available at: http://www.Internet[employer]/multiple_crcl_2012.htm Glucose [Mass/Vol] 96 mg/dL 70 - 99 mg/dL [facility] Interpretation and review of laboratory results Abnormal [facility] Potassium [Moles/Vol] 2.0 mmol/L Critically low 3.7 - 5.3 mmol/L [facility] Sodium [Moles/Vol] 141 mmol/L 135 - 144 mmol/L [facility] Urea nitrogen (BldV) [Mass/Vol] 5 mg/dL Low 6 - 20 mg/dL [facility] Urea nitrogen/Creatinine (Bld) [Mass ratio] 5 Low [facility] CBC with Auto Differentialon 07-14-2021 Absolute Eos # 0.00 [place] [facility] Absolute Lymph # 1.80 [facility] Absolute [place] # 0.80 [facility] RS [facility] Basophils (Bld) [#/Vol] 0.00 10*3/uL [facility] Basophils/100 WBC (Bld) 0 % 0 - 2 % B ON [facility] Eosinophils/100 WBC (Bld) 0 % 0 - 5 % [facility] Hematocrit (Bld) [Volume fraction] 29.9 % Low 36 - 46 % [facility] Hemoglobin.gastrointest inal spec 1 Ql (Stl) 10.1 g/dL Low 12.0 - 16.0 g/dL [facility] Interpretation and review of laboratory results Abnormal [facility] Lymphocytes/100 WBC (Bld) 22 % 15 - 40 % [facility] MCH (RBC) [Entitic mass] 28.4 pg 26 - 34 pg [facility] MCHC (RBC) [Mass/Vol] 33.8 g/dL 31 - 3 7 g/dL [facility] MCV (RBC) [Entitic vol] 83.9 fL 80 - 100 fL [facility] Monocytes/100 WBC (Bld) 10 % High 4 - 8 % B ON [facility] Morphology Malachi (Bld) [Interp] MODERATE ANISOCYTOSIS [facility] Platelet distribution width (Bld) [Ratio] 19.9 % High 12.1 - 15.2 % [facility] Platelets (Bld) [#/Vol] 701 10*3/uL High [facility] RBC (Bld) [#/Vol] 3.56 10*6/uL Low 4.0 - 5.2 m/uL [facility] Segmented neutrophils/100 WBC (Bld) 68 % 47 - 75 % [facility] Segs Absolute 5.60 [facility] WBC (Bld) [#/Vol] 8.2 10*3/uL [facility] Magnesiumon 07-14-2021 Magnesium [Mass/Vol] 1.6 mg/dL 1.6 - 2 .6 mg/dL [facility] CBC with Auto Differentialon 07-13-2021 Absolute Eos # 0.10 [place] [facility] Absolute Lymph # 1.60 [facility] Absolute [place] # 1.10 High [facility] Basophils (Bld) [#/Vol] 0.00 10*3/uL [facility] Basophils/100 WBC (Bld) 0 % 0 - 2 % B ON [facility] Eosinophils/100 WBC (Bld) 1 % 0 - 5 % [facility] Hematocrit (Bld) [Volume fraction] 31.2 % Low 36 - 46 % [facility] Hemoglobin.gastrointest inal spec 1 Ql (Stl) 10.4 g/dL Low 12.0 - 16.0 g/dL [facility] Interpretation and review of laboratory results Abnormal [facility] Lymphocytes/100 WBC (Bld) 20 % 15 - 40 % [facility] MCH (RBC) [Entitic mass] 28.1 pg 26 - 34 pg [facility] MCHC (RBC) [Mass/Vol] 33.2 g/dL 31 - 3 7 g/dL [facility] MCV (RBC) [Entitic vol] 84.7 fL 80 - 100 fL [facility] Monocytes/100 WBC (Bld) 13 % High 4 - 8 % B ON [facility] Morphology Malachi (Bld) [Interp] MODERATE ANISOCYTOSIS [facility] Morphology Malachi (Bld) [Interp] Scanned to verify automated differential. [facility] Platelet distribution width (Bld) [Ratio] 20.5 % High 12.1 - 15.2 % [facility] Platelets (Bld) [#/Vol] 725 10*3/uL High [facility] RBC (Bld) [#/Vol] 3.68 10*6/uL Low 4.0 - 5.2 m/uL [facility] Segmented neutrophils/100 WBC (Bld) 66 % 47 - 75 % [facility] Segs Absolute 5.30 [facility] WBC (Bld) [#/Vol] 8.1 10*3/uL [facility] COVID-19, Rapidon 07-13-2021 Interpretation and review of laboratory results Abnormal [facility] SARS-CoV-2 (COVID-19) RNA CAL+probe Ql (Unsp spec) Detected Abnormal Not Detected [facility] Comment on above: Rapid NAAT: The specimen is POSITIVE for SARS-Cov-2, the novel coronavirus associated with COVID-19. This test has been authorized by the FDA under an Emergency Use Authorization (EUA) for use by authorized laboratories. The ID NOW COVID-19 assay is designed to detect the virus that causes COVID-19 in patients with signs and symptoms of infection who are suspected of COVID-19. An individual without symptoms of COVID-19 and who is not shedding SARS-CoV-2 virus would expect to have a negative (not detected) result in this assay. Fact sheet for Healthcare Providers: https://www.fda.gov/media/259195/download Fact sheet for Patients: https://www.fda.gov/media/430576/download Methodology: Isothermal Nucleic Acid Amplification Results reported to the appropriate Health Department Specimen Description .NASOPHARYNGEAL SWAB [facility] Comprehensive Metabolic Pane l w/ Reflex to MGon 07-13-2021 Albumin [Mass/Vol] 2.5 g/dL Low 3.5 - 5.2 g/dL [facility] ALP (Bld) [Catalytic activity/Vol] 450 U/L High 35 - 104 U/L [facility] ALT [Catalytic activity/Vol] 13 U/L 5 - 33 U/L [facility] Anion gap [Moles/Vol] 16 mmol/L 9 - 17 mmol/L [facility] AST [Catalytic activity/Vol] 29 U/L <32 [facility] Bilirubin [Mass/Vol] 0.64 mg/dL 0.30 - 1.20 mg/dL [facility] Calcium [Mass/Vol] 8.7 mg/dL 8.6 - 10. 4 mg/dL [facility] Chloride [Moles/Vol] 102 mmol/L 98 - 10 7 mmol/L [facility] CO2 [Moles/Vol] 25 mmol/L 20 - 31 mmol/L [facility] Creatinine [Mass/Vol] 0.85 mg/dL 0.50 - 0.90 mg/dL [facility] Free PSA/Total PSA [Mass fraction] 6.5 g/dL 6.4 - 8.3 g/dL [facility] GFR >60 >60 mL/min [facility] GFR Non- >60 >60 mL/min [facility] GFR/1.73 sq M.predicted MDRD (S/P/Bld) [Vol rate/Area] [facility] Comment on above: Average GFR for 50-5 9 years old: 93 mL/min/1.73sq m Chronic Kidney Disease: <60 mL/min/1.73sq m Kidney failure: <15 mL/min/1.73sq m eGFR calculated using average adult body mass. Additional eGFR calculator available at: http://www.InternetArray/multiple_crcl_2012.htm Glucose [Mass/Vol] 79 mg/dL 70 - 99 mg/dL [facility] Interpretation and review of laboratory results Abnormal [facility] Potassium [Moles/Vol] 2.2 mmol/L Critically low 3.7 - 5.3 mmol/L [facility] Sodium [Moles/Vol] 143 mmol/L 135 - 144 mmol/L [facility] Urea nitrogen (BldV) [Mass/Vol] 7 mg/dL 6 - 20 mg/dL [facility] Urea nitrogen/Creatinine (Bld) [Mass ratio] 8 Low [facility] Lactate Dehydrogenaseon 05-2 Interpretation and review of laboratory results Abnormal [facility] LD 317 U/L High 135 - 214 U/L [facility] Lactic Acidon 07-13-2021 Lactate [Moles/Vol] 1 mmol/L 0.5 - 2. 2 mmol/L [facility] Magnesiumon 07-13-2021 Interpretation and review of laboratory results Abnormal [facility] Magnesium [Mass/Vol] 1.5 mg/dL Low 1.6 - 2 .6 mg/dL [facility] XR CHEST PORTABLEon 07-14-19 22 Left infrahilar patchy airspace disease consistent with a left lower lobe pneumonia. Recommend follow-up imaging 4 weeks post treatment to document resolution. [facility] RIS CONSOLIDATED EXAM: XR CHEST PORTABLE HISTORY: Reason for exam:->cough COMPARISON: June 28, 2021. TECHNIQUE: A single AP portable view of the chest. FINDINGS: There is patchy airspace disease at the left infrahilar region medially. The heart size is at the upper limits of normal. There are mild to moderate degenerative changes of the thoracic spine and moderate degenerative changes of each shoulder, with a metallic anchor noted within the left humeral head. [facility] RIS CONSOLID[facility] Lionel Mas MD - 07/13/2021 EXAM: XR CHEST PORTABLE HISTORY: Reason for exam:->cough COMPARISON: June 28, 2021. TECHNIQUE: A single AP portable view of the chest. FINDINGS: There is patchy airspace disease at the left infrahilar region medially. The heart size is at the upper limits of normal. There are mild to moderate degenerative changes of the thoracic spine and moderate degenerative changes of each shoulder, with a metallic anchor noted within the left humeral head. IMPRESSION: Left infrahilar patchy airspace disease consistent with a left lower lobe pneumonia. Recommend follow-up imaging 4 weeks post treatment to document resolution. [facility] [employer] Work Phone: Radiology Study observation (narrative) [facility] [employer] Work Phone: XR CHEST PORTABLEOrdered By: Lionel Mas on 07-13-2021 [facility] [employer] Work Phone: Basic Metabolic Panel w/ Ref rafael to MGon 07-10-2021 Anion gap [Moles/Vol] 14 mmol/L 9 - 17 mmol/L [facility] Calcium [Mass/Vol] 7.4 mg/dL Low 8.6 - 10. 4 mg/dL [facility] Chloride [Moles/Vol] 110 mmol/L High 98 - 10 7 mmol/L [facility] CO2 [Moles/Vol] 16 mmol/L Low 20 - 31 mmol/L [facility] Creatinine [Mass/Vol] 1.01 mg/dL High 0.50 - 0.90 mg/dL [facility] GFR >60 >60 mL/min [facility] GFR Non- 56 mL/min Low >60 [facility] GFR/1.73 sq M.predicted MDRD (S/P/Bld) [Vol rate/Area] [facility] Glucose [Mass/Vol] 65 mg/dL Low 70 - 99 mg/dL [facility] Potassium [Moles/Vol] 3.3 mmol/L Low 3.7 - 5.3 mmol/L [facility] Sodium [Moles/Vol] 140 mmol/L 135 - 144 mmol/L [facility] Urea nitrogen (BldV) [Mass/Vol] 7 mg/dL 6 - 20 mg/dL [facility] C-Reactive Proteinon 022 CRP [Mass/Vol] 161.7 mg/L High 0.0 - 5.0 mg/L [facility] CBC with Auto Differentialon 07-10-2021 Absolute Eos # 0.18 [facility] Absolute Immature Granulocyte 0.00 [facility] Absolute Lymph # 3.40 [facility] Absolute [place] # 0.72 [facility] RS [facility] Basophils (Bld) [#/Vol] 0.00 10*3/uL [facility] Basophils/100 WBC (Bld) 0 % 0 - 2 % [facility] Eosinophils/100 WBC (Bld) 1 % 1 - 4 % [facility] Hematocrit (Bld) [Volume fraction] 25.6 % Low 36.3 - 47.1 % [facility] Hemoglobin.gastrointest inal spec 1 Ql (Stl) 8.3 g/dL Low 11.9 - 15.1 g/dL [facility] Immature granulocytes/100 WBC (Bld) 0 % 0 [facility] Interpretation and review of laboratory results Abnormal [facility] Lymphocytes/100 WBC (Bld) 19 % Low 24 - 44 % [facility] MCH (RBC) [Entitic mass] 27.8 pg 25.2 - 33.5 pg [facility] MCHC (RBC) [Mass/Vol] 32.4 g/dL 28.4 - 34.8 g/dL [facility] MCV (RBC) [Entitic vol] 85.6 fL 82.6 - 102.9 fL [facility] Monocytes/100 WBC (Bld) 4 % 1 - 7 % B ON [facility] Morphology Malachi (Bld) [Interp] ANISOCYTOSIS PRESENT [facility] NRBC Automated 0.0 0.0 per 100 WBC [facility] Platelet distribution width (Bld) [Ratio] 20.4 % High 11.8 - 14.4 % [facility] Platelet mean volume (Bld) [Entitic vol] 9.0 fL 8.1 - 13.5 fL [facility] Platelets (Bld) [#/Vol] 530 10*3/uL High [facility] RBC (Bld) [#/Vol] 2.99 10*6/uL Low 3.95 - 5.1 1 m/uL [facility] Seg Neutrophils 76 % High 36 - 66 % [facility] Segs Absolute 13.60 High [facility] WBC (Bld) [#/Vol] 17.9 10*3/uL High [facility] COVID-19, Rapidon 07-10-2021 SARS-CoV-2 (COVID-19) RNA CAL+probe Ql (Unsp spec) Not detected Not Detected [facility] Specimen Description .NASOPHARYNGEAL SWAB [facility] CT CERVICAL SPINE WO CONTRAS Ton 07-10-2021 [facility] RIS CONSOLIDATED PN RIS CONSOLIDATED [facility] Work Phone: Radiology Study observation (narrative) ARASELI WOLF [employer] Work Phone: CT CERVICAL SPINE WO CONTRAS TOrdered By: Earl Kohler on 07-10-2021 [employer] Work Phone: Insert PICC lineon 2 [employer] Work Phone: Magnesiumon 07-10-2021 Magnesium [Mass/Vol] 1.8 mg/dL 1.6 - 2 .6 mg/dL [facility] No Panel Informationon 07-10 Interpretation and review of laboratory results Abnormal [facility] [employer] POC Glucose Fingerstickon Glucose [Mass/Vol] 137 mg/dL High 65 - 105 mg/dL [facility] Interpretation and review of laboratory results Abnormal [facility] [employer] Glucose [Mass/Vol] 77 mg/dL 65 - 105 mg/dL [facility] [employer] XR CERVICAL SPINE FLEXION AN D EXTENSIONon 07-10-2021 [facility] RIS CONSOLIDATED [facility] RIS CONSOLIDATED [employer] Work Phone: [employer] Work Phone: Radiology Study observation (narrative) ARASELI WOLF [employer] Work Phone: Basic Metabolic Panel w/ Ref rafael to MGon 07-09-2021 Anion gap [Moles/Vol] 11 mmol/L 9 - 17 mmol/L [facility] Calcium [Mass/Vol] 7.7 mg/dL Low 8.6 - 10. 4 mg/dL [facility] Chloride [Moles/Vol] 109 mmol/L High 98 - 10 7 mmol/L [facility] CO2 [Moles/Vol] 20 mmol/L 20 - 31 mmol/L [facility] Creatinine [Mass/Vol] 0.81 mg/dL 0.50 - 0.90 mg/dL [employer] GFR >60 >60 mL/min [facility] GFR Non- >60 >60 mL/min [facility] GFR/1.73 sq M.predicted MDRD (S/P/Bld) [Vol rate/Area] [facility] Glucose [Mass/Vol] 133 mg/dL High 70 - 99 mg/dL [facility] Potassium [Moles/Vol] 3.9 mmol/L 3.7 - 5.3 mmol/L [facility] Sodium [Moles/Vol] 140 mmol/L 135 - 144 mmol/L [facility] Urea nitrogen (BldV) [Mass/Vol] 7 mg/dL 6 - 20 mg/dL [facility] C-Reactive Proteinon 022 CRP [Mass/Vol] 124.1 mg/L High 0.0 - 5.0 mg/L [facility] CBC with Auto Differentialon 07-09-2021 Absolute Eos # 0.40 [facility] Absolute Immature Granulocyte 0.08 [facility] Absolute Lymph # 2.06 [facility] Absolute [place] # 0.48 [facility] Basophils (Bld) [#/Vol] 10*3/uL B ON [facility] Basophils/100 WBC (Bld) 0 % 0 - 2 % B ON [facility] Eosinophils/100 WBC (Bld) 4 % 1 - 4 % [facility] Hematocrit (Bld) [Volume fraction] 27.9 % Low 36.3 - 47.1 % [facility] Hemoglobin.gastrointest inal spec 1 Ql (Stl) 8.5 g/dL Low 11.9 - 15.1 g/dL [facility] Immature granulocytes/100 WBC (Bld) 1 % High 0 [facility] Interpretation and review of laboratory results Abnormal [facility] Lymphocytes/100 WBC (Bld) 18 % Low 24 - 43 % [facility] MCH (RBC) [Entitic mass] 27.3 pg 25.2 - 33.5 pg [facility] MCHC (RBC) [Mass/Vol] 30.5 g/dL 28.4 - 34.8 g/dL [facility] MCV (RBC) [Entitic vol] 89.7 fL 82.6 - 102.9 fL [facility] Monocytes/100 WBC (Bld) 4 % 3 - 12 % [facility] ON [facility] NRBC Automated 0.0 0.0 per 100 WBC [facility] Platelet distribution width (Bld) [Ratio] 19.9 % High 11.8 - 14.4 % [facility] Platelet mean volume (Bld) [Entitic vol] 8.9 fL 8.1 - 13.5 fL [facility] Platelets (Bld) [#/Vol] 434 10*3/uL [facility] RBC (Bld) [#/Vol] 3.11 10*6/uL Low 3.95 - 5.1 1 m/uL [facility] RBC (Bld) [#/Vol] ANISOCYTOSIS PRESENT [facility] Seg Neutrophils 73 % High 36 - 65 % [facility] Segs Absolute 8.48 High [facility] WBC (Bld) [#/Vol] 11.5 10*3/uL High [facility] COVID-19, Rapidon 07-09-2021 SARS-CoV-2 (COVID-19) RNA CAL+probe Ql (Unsp spec) Not detected Not Detected [facility] Specimen Description .NASOPHARYNGEAL SWAB [facility] No Panel Informationon 07-09 Interpretation and review of laboratory results Abnormal [facility] POC Glucose Fingerstickon Glucose [Mass/Vol] 101 mg/dL 65 - 105 mg/dL [facility] Glucose [Mass/Vol] 146 mg/dL High 65 - 105 mg/dL [facility] Interpretation and review of laboratory results Abnormal [facility] Glucose [Mass/Vol] 99 mg/dL 65 - 105 mg/dL [facility] Glucose [Mass/Vol] 138 mg/dL High 65 - 105 mg/dL [facility] Interpretation and review of laboratory results Abnormal [facility] Glucose [Mass/Vol] 171 mg/dL High 65 - 105 mg/dL [facility] Interpretation and review of laboratory results Abnormal [facility] Glucose [Mass/Vol] 279 mg/dL High 65 - 105 mg/dL [facility] Interpretation and review of laboratory results Abnormal [facility] Glucose [Mass/Vol] 59 mg/dL Low 65 - 105 mg/dL [facility] Interpretation and review of laboratory results Abnormal [facility] Glucose [Mass/Vol] 59 mg/dL Low 65 - 105 mg/dL [facility] Interpretation and review of laboratory results Abnormal [facility] Glucose [Mass/Vol] 58 mg/dL Low 65 - 105 mg/dL [facility] Interpretation and review of laboratory results Abnormal [facility] Glucose [Mass/Vol] 306 mg/dL High 65 - 105 mg/dL [facility] Interpretation and review of laboratory results Abnormal [facility] Basic Metabolic Panel w/ Ref rafael to MGon 07-08-2021 Anion gap [Moles/Vol] 10 mmol/L 9 - 17 mmol/L [facility] Calcium [Mass/Vol] 7.3 mg/dL Low 8.6 - 10. 4 mg/dL [facility] Chloride [Moles/Vol] 108 mmol/L High 98 - 10 7 mmol/L [facility] CO2 [Moles/Vol] 20 mmol/L 20 - 31 mmol/L [facility] Creatinine [Mass/Vol] 0.83 mg/dL 0.50 - 0.90 mg/dL [facility] GFR >60 >60 mL/min [facility] GFR Non- >60 >60 mL/min [facility] GFR/1.73 sq M.predicted MDRD (S/P/Bld) [Vol rate/Area] [facility] Glucose [Mass/Vol] 141 mg/dL High 70 - 99 mg/dL [facility] Interpretation and review of laboratory results Abnormal [facility] Potassium [Moles/Vol] 2.9 mmol/L Critically low 3.7 - 5.3 mmol/L [facility] Sodium [Moles/Vol] 138 mmol/L 135 - 144 mmol/L [facility] Urea nitrogen (BldV) [Mass/Vol] 7 mg/dL 6 - 20 mg/dL [facility] C-Reactive Proteinon 022 CRP [Mass/Vol] 131.5 mg/L High 0.0 - 5.0 mg/L [facility] Interpretation and review of laboratory results Abnormal [facility] CBC with Auto Differentialon 07-08-2021 Absolute Eos # 0.31 [place] [facility] Absolute Immature Granulocyte 0.05 [facility] Absolute Lymph # 1.87 [facility] Absolute [place] # 0.37 [facility] RS [facility] Basophils (Bld) [#/Vol] 10*3/uL B ON [facility] Basophils/100 WBC (Bld) 0 % 0 - 2 % [facility] ON [facility] Eosinophils/100 WBC (Bld) 3 % 1 - 4 % [facility] Hematocrit (Bld) [Volume fraction] 21.5 % Low 36.3 - 47.1 % [facility] Hemoglobin.gastrointest inal spec 1 Ql (Stl) 6.9 g/dL Critically low 11.9 - 15.1 g/dL [facility] Immature granulocytes/100 WBC (Bld) 0 % 0 [facility] Interpretation and review of laboratory results Abnormal [facility] Lymphocytes/100 WBC (Bld) 17 % Low 24 - 43 % [facility] MCH (RBC) [Entitic mass] 27.5 pg 25.2 - 33.5 pg [facility] MCHC (RBC) [Mass/Vol] 32.1 g/dL 28.4 - 34.8 g/dL [facility] MCV (RBC) [Entitic vol] 85.7 fL 82.6 - 102.9 fL [facility] Monocytes/100 WBC (Bld) 3 % 3 - 12 % [facility] ON [facility] NRBC Automated 0.0 0.0 per 100 WBC [facility] Platelet distribution width (Bld) [Ratio] 18.6 % High 11.8 - 14.4 % [facility] Platelet mean volume (Bld) [Entitic vol] 8.9 fL 8.1 - 13.5 fL [facility] Platelets (Bld) [#/Vol] 328 10*3/uL [facility] RBC (Bld) [#/Vol] 2.51 10*6/uL Low 3.95 - 5.1 1 m/uL [facility] RBC (Bld) [#/Vol] ANISOCYTOSIS PRESENT [facility] Seg Neutrophils 77 % High 36 - 65 % [facility] Segs Absolute 8.74 High [facility] WBC (Bld) [#/Vol] 11.4 10*3/uL High [facility] Culture, Urineon 07-08-2021 Bacteria identified Cx Nom (U) NO GROWTH [facility] Specimen Description .INDWELLING CATH URINE [facility] Bacteria identified Cx Nom (U) NO GROWTH [facility] Specimen Description .INDWELLING CATH URINE [facility] Hemoglobin and Hematocriton 07-08-2021 Hematocrit (Bld) [Volume fraction] 25.5 % Low 36.3 - 47.1 % [facility] Hemoglobin.gastrointest inal spec 1 Ql (Stl) 8.1 g/dL Low 11.9 - 15.1 g/dL [facility] Interpretation and review of laboratory results Abnormal [facility] MRI BRAIN W WO CONTRASTon MHPN RIS CONSOLIDATED MHPN RIS CONSOLIDATED [facility] Work Phone: MRI BRAIN W WO CONTRASTOrder ed By: Mai Villarreal on 07-08-2021 [facility] Work Phone: Magnesiumon 07-08-2021 Magnesium [Mass/Vol] 1.7 mg/dL 1.6 - 2 .6 mg/dL [facility] POC Glucose Fingerstickon Glucose [Mass/Vol] 139 mg/dL High 65 - 105 mg/dL [facility] Interpretation and review of laboratory results Abnormal [facility] Glucose [Mass/Vol] 140 mg/dL High 65 - 105 mg/dL [facility] Interpretation and review of laboratory results Abnormal [facility] Glucose [Mass/Vol] 192 mg/dL High 65 - 105 mg/dL [facility] Interpretation and review of laboratory results Abnormal [facility] Basic Metabolic Panel w/ Ref rafael to MGon 07-07-2021 Anion gap [Moles/Vol] 12 mmol/L 9 - 17 mmol/L [facility] Calcium [Mass/Vol] 7.8 mg/dL Low 8.6 - 10. 4 mg/dL [facility] [facility] Chloride [Moles/Vol] 106 mmol/L 98 - 10 7 mmol/L [facility] CO2 [Moles/Vol] 22 mmol/L 20 - 31 mmol/L [facility] Creatinine [Mass/Vol] 0.83 mg/dL 0.50 - 0.90 mg/dL [facility] GFR >60 >60 mL/min [facility] GFR Non- >60 >60 mL/min [facility] GFR/1.73 sq M.predicted MDRD (S/P/Bld) [Vol rate/Area] [facility] Glucose [Mass/Vol] 205 mg/dL High 70 - 99 mg/dL [facility] Potassium [Moles/Vol] 3.9 mmol/L 3.7 - 5.3 mmol/L [facility] Sodium [Moles/Vol] 140 mmol/L 135 - 144 mmol/L [facility] Urea nitrogen (BldV) [Mass/Vol] 8 mg/dL 6 - 20 mg/dL [facility] C-Reactive Proteinon 022 CRP [Mass/Vol] 141.9 mg/L High 0.0 - 5.0 mg/L [facility] CBC with Auto Differentialon 07-07-2021 Absolute Eos # <0.03 [place] [facility] Absolute Immature Granulocyte 0.06 [facility] Absolute Lymph # 0.72 Low [place] [facility] Absolute [place] # 0.51 [facility] RS [facility] Basophils (Bld) [#/Vol] 10*3/uL [facility] Basophils/100 WBC (Bld) 0 % 0 - 2 % [facility] Eosinophils/100 WBC (Bld) 0 % Low 1 - 4 % [facility] Hematocrit (Bld) [Volume fraction] 27.9 % Low 36.3 - 47.1 % [facility] Hemoglobin.gastrointest inal spec 1 Ql (Stl) 9.2 g/dL Low 11.9 - 15.1 g/dL [facility] Immature granulocytes/100 WBC (Bld) 1 % High 0 [facility] Interpretation and review of laboratory results Abnormal [facility] Lymphocytes/100 WBC (Bld) 7 % Low 24 - 43 % [facility] MCH (RBC) [Entitic mass] 27.5 pg 25.2 - 33.5 pg [facility] MCHC (RBC) [Mass/Vol] 33.0 g/dL 28.4 - 34.8 g/dL [facility] MCV (RBC) [Entitic vol] 83.5 fL 82.6 - 102.9 fL [facility] Monocytes/100 WBC (Bld) 5 % 3 - 12 % B ON [facility] NRBC Automated 0.0 0.0 per 100 WBC [facility] Platelet distribution width (Bld) [Ratio] 17.2 % High 11.8 - 14.4 % [facility] Platelet mean volume (Bld) [Entitic vol] 9.1 fL 8.1 - 13.5 fL [facility] Platelets (Bld) [#/Vol] 372 10*3/uL [facility] RBC (Bld) [#/Vol] 3.34 10*6/uL Low 3.95 - 5.1 1 m/uL [facility] RBC (Bld) [#/Vol] ANISOCYTOSIS PRESENT [facility] Seg Neutrophils 88 % High 36 - 65 % [facility] Segs Absolute 9.77 High [facility] WBC (Bld) [#/Vol] 11.1 10*3/uL [facility] Microscopic Urinalysison Bacteria, UA MANY Abnormal None [facility] Casts UA 10 TO 20 HYALINE Reference range defined for non-centrifuged specimen. [facility] Epithelial Cells UA 10 TO 20 [facility] Interpretation and review of laboratory results Abnormal [facility] RBC, UA 20 TO 50 [facility] WBC, UA 10 TO 20 [facility] No Panel Informationon 07-07 Interpretation and review of laboratory results Abnormal [facility] POC Glucose Fingerstickon Glucose [Mass/Vol] 126 mg/dL High 65 - 105 mg/dL [facility] Interpretation and review of laboratory results Abnormal [facility] Glucose [Mass/Vol] 163 mg/dL High 65 - 105 mg/dL [facility] Interpretation and review of laboratory results Abnormal [facility] Glucose [Mass/Vol] 132 mg/dL High 65 - 105 mg/dL [facility] Interpretation and review of laboratory results Abnormal [facility] TYPE AND SCREENon 07-07-2021 ABO/Rh Positive [facility] Arm Band Number BE [id number] [facility] Blood Bank Blood Product Expiration Date [facility] Blood Bank ISBT Product Blood Type 6200 [facility] Blood Bank Unit Type and Rh Positive [facility] Blood product type Nom (BPU) Leukocyte Reduced Red Cell [facility] Blood product unit ID (Dose) [#] [id number] [facility] Crossmatch Result COMPATIBLE [facility] Dispense Status TRANSFUSED [facility] Expiration Date 07/09/2021,2359 [facility] Product Code Blood Bank [id number] B ON [facility] Transfusion Status OK TO TRANSFUSE B ON [facility] Unit Divison 0 [facility] Unit Issue Date/Time [facility] Urinalysis with Reflex to Cu ltureon 07-07-2021 Bilirubin Urine Negative NEGATIVE [facility] Color, UA Yellow Yellow [facility] Glucose, Ur 1+ Abnormal NEGATIVE [facility] Interpretation and review of laboratory results Abnormal [facility] Ketones Ql (U) TRACE Abnormal NEGATIVE [facility] Leukocyte esterase Test strip Ql (U) Negative NEGATIVE [facility] Nitrite, Urine Negative NEGATIVE [facility] pH, UA 5.5 [facility] Protein, UA Negative NEGATIVE [facility] Specific [place], UA 1.024 [facility] Turbidity UA Clear Clear [facility] Urine Hgb MODERATE Abnormal NEGATIVE [facility] Urobilinogen, Urine Normal Normal [facility] Basic Metabolic Panel w/ Ref rafael to MGon 07-06-2021 Anion gap [Moles/Vol] 8 mmol/L Low 9 - 17 mmol/L [facility] Calcium [Mass/Vol] 8.1 mg/dL Low 8.6 - 10. 4 mg/dL [facility] Chloride [Moles/Vol] 102 mmol/L 98 - 10 7 mmol/L [facility] CO2 [Moles/Vol] 23 mmol/L 20 - 31 mmol/L [facility] Creatinine [Mass/Vol] 0.9 mg/dL 0.50 - 0.90 mg/dL [facility] GFR >60 >60 mL/min [facility] GFR Non- >60 >60 mL/min [facility] GFR/1.73 sq M.predicted MDRD (S/P/Bld) [Vol rate/Area] [facility] Glucose [Mass/Vol] 138 mg/dL High 70 - 99 mg/dL [facility] Interpretation and review of laboratory results Abnormal [facility] Potassium [Moles/Vol] 3.2 mmol/L Low 3.7 - 5.3 mmol/L [facility] Sodium [Moles/Vol] 133 mmol/L Low 135 - 144 mmol/L [facility] Urea nitrogen (BldV) [Mass/Vol] 7 mg/dL 6 - 20 mg/dL [facility] Blood Gas, Arterialon 2021 Adarsh Test INFORMATION NOT PROVIDED [facility] Carboxyhemoglobin 1.1 % 0 - 5 % [facility] FIO2 100% [facility] HCO3 (Bld) [Moles/Vol] 22.7 mmol/L 22 - 27 mmol/L [facility] Oxygen saturation in Blood 99.6 % 94 - 100 % [facility] pCO2, Arterial 27.4 Low [facility] pH, Arterial 7.529 High [facility] pO2, Arterial 277.0 High [facility] Positive Base Excess, Art 0.5 mmol/L 0.0 - 2.0 mmol/L [facility] Pt Temp 37.0 [facility] C-Reactive Proteinon 022 CRP [Mass/Vol] 183.8 mg/L High 0.0 - 5.0 mg/L [facility] Interpretation and review of laboratory results Abnormal [facility] CBC with Auto Differentialon 07-06-2021 Absolute Eos # 0.25 [facility] Absolute Immature Granulocyte 0.04 [facility] Absolute Lymph # 1.52 [facility] Absolute [place] # 0.43 [facility] Basophils (Bld) [#/Vol] 10*3/uL B ON [facility] Basophils/100 WBC (Bld) 0 % 0 - 2 % B ON [facility] Eosinophils/100 WBC (Bld) 3 % 1 - 4 % [facility] Hematocrit (Bld) [Volume fraction] 27.5 % Low 36.3 - 47.1 % [facility] Hemoglobin.gastrointest inal spec 1 Ql (Stl) 8.5 g/dL Low 11.9 - 15.1 g/dL [facility] Immature granulocytes/100 WBC (Bld) 1 % High 0 [facility] Interpretation and review of laboratory results Abnormal [facility] Lymphocytes/100 WBC (Bld) 20 % Low 24 - 43 % [facility] MCH (RBC) [Entitic mass] 26.0 pg 25.2 - 33.5 pg [facility] MCHC (RBC) [Mass/Vol] 30.9 g/dL 28.4 - 34.8 g/dL [facility] MCV (RBC) [Entitic vol] 84.1 fL 82.6 - 102.9 fL [facility] Monocytes/100 WBC (Bld) 6 % 3 - 12 % B ON [facility] NRBC Automated 0.0 0.0 per 100 WBC [facility] Platelet distribution width (Bld) [Ratio] 18.2 % High 11.8 - 14.4 % [facility] Platelet mean volume (Bld) [Entitic vol] 9.4 fL 8.1 - 13.5 fL [facility] Platelets (Bld) [#/Vol] 378 10*3/uL [facility] RBC (Bld) [#/Vol] 3.27 10*6/uL Low 3.95 - 5.1 1 m/uL [facility] RBC (Bld) [#/Vol] ANISOCYTOSIS PRESENT [facility] Seg Neutrophils 70 % High 36 - 65 % [facility] Segs Absolute 5.41 [facility] WBC (Bld) [#/Vol] 7.7 10*3/uL [facility] Calcium, Ionizedon 2 Calcium [Moles/Vol] 1.14 mmol/L 1.13 - 1 .33 mmol/L [facility] Calcium [Moles/Vol] 1.13 mmol/L 1.13 - 1 .33 mmol/L [facility] Chloride, Whole Bloodon 06-18 Chloride [Moles/Vol] 109 mmol/L 98 - 11 0 mmol/L [facility] Culture, Blood 1on 2 Bacteria identified Cx Nom (Unsp spec) Positive Abnormal [facility] Bacteria identified Cx Nom (Unsp spec) DIRECT GRAM STAIN FROM BOTTLE: GRAM POSITIVE COCCI IN CLUSTERS [facility] Bacteria identified Cx Nom (Unsp spec) STAPHYLOCOCCUS AUREUS For susceptibility, refer to previous culture. Abnormal [facility] Bacteria identified Cx Nom (Unsp spec) (NOTE) Direct Gram Stain from bottle result called to and read back by: RICH Miranda 07/05/21 0115 [facility] Interpretation and review of laboratory results Abnormal [facility] Special Requests R HAND 10ML [facility] Specimen Description .BLOOD [facility] Bacteria identified Cx Nom (Unsp spec) Positive Abnormal [facility] Bacteria identified Cx Nom (Unsp spec) DIRECT GRAM STAIN FROM BOTTLE: GRAM POSITIVE COCCI IN CLUSTERS [facility] Bacteria identified Cx Nom (Unsp spec) STAPHYLOCOCCUS AUREUS This isolate is methicillin susceptible. Abnormal [facility] Bacteria identified Cx Nom (Unsp spec) (NOTE) Direct Gram Stain from bottle result called to and read back by: RICH Miranda RN AT 0020 ON 07/05/21 [facility] Interpretation and review of laboratory results Abnormal [facility] Special Requests L HAND 20ML [facility] Specimen Description .BLOOD [facility] FLUORO FOR SURGICAL PROCEDUR ESon 07-06-2021 PN RIS CONSOLIDATED Glucose, Whole Bloodon 07-06 Glucose [Mass/Vol] 131 mg/dL High 65 - 105 mg/dL [facility] Magnesiumon 07-06-2021 Magnesium [Mass/Vol] 2.3 mg/dL 1.6 - 2 .6 mg/dL [facility] No Panel Informationon 07-06 [facility] Interpretation and review of laboratory results Abnormal [facility] OPEN HEART PANELon 2 Adarsh Test INFORMATION NOT PROVIDED [facility] Carboxyhemoglobin 0.8 % 0 - 5 % [facility] Chloride [Moles/Vol] 108 mmol/L 98 - 11 0 mmol/L [facility] FIO2 56% [facility] Glucose [Mass/Vol] 207 mg/dL High 65 - 105 mg/dL [facility] HCO3 (Bld) [Moles/Vol] 21.4 mmol/L Low 22 - 27 mmol/L [facility] Hematocrit (Bld) [Volume fraction] 30.6 % Low 36.3 - 47.1 % [facility] Hemoglobin.gastrointest inal spec 1 Ql (Stl) 9.9 Low [facility] Interpretation and review of laboratory results Abnormal [facility] Negative Base Excess, Art 2.3 mmol/L High 0.0 - 2.0 mmol/L [facility] Oxygen saturation in Blood 99.4 % 94 - 100 % [facility] pCO2, Arterial 34.8 [facility] pH, Arterial 7.406 [facility] pO2, Arterial 279.0 High [facility] Potassium [Moles/Vol] 3.7 mmol/L 3.6 - 5.0 mmol/L [facility] Pt Temp 35.9 [facility] Sodium [Moles/Vol] 140 mmol/L 136 - 145 mmol/L [facility] Open Heart H&Hon 07-06-2021 Hematocrit (Bld) [Volume fraction] 21.0 % Low 36.3 - 47.1 % [facility] Hemoglobin.gastrointest inal spec 1 Ql (Stl) 6.7 Critically low [facility] POC Glucose Fingerstickon Glucose [Mass/Vol] 192 mg/dL High 65 - 105 mg/dL [facility] Interpretation and review of laboratory results Abnormal [facility] Glucose [Mass/Vol] 136 mg/dL High 65 - 105 mg/dL [facility] Interpretation and review of laboratory results Abnormal [facility] Glucose [Mass/Vol] 132 mg/dL High 65 - 105 mg/dL [facility] Interpretation and review of laboratory results Abnormal [facility] Potassium, Whole Bloodon Potassium [Moles/Vol] 3.6 mmol/L 3.6 - 5.0 mmol/L [facility] Sodium, Whole Bloodon 2021 Sodium [Moles/Vol] 140 mmol/L 136 - 145 mmol/L [facility] Basic Metabolic Panel w/ Ref rafael to MGon 07-05-2021 Anion gap [Moles/Vol] 10 mmol/L 9 - 17 mmol/L [facility] Calcium [Mass/Vol] 8.4 mg/dL Low 8.6 - 10. 4 mg/dL [facility] Chloride [Moles/Vol] 101 mmol/L 98 - 10 7 mmol/L [facility] CO2 [Moles/Vol] 27 mmol/L 20 - 31 mmol/L [facility] Creatinine [Mass/Vol] 0.79 mg/dL 0.50 - 0.90 mg/dL [facility] GFR >60 >60 mL/min [facility] GFR Non- >60 >60 mL/min [facility] GFR/1.73 sq M.predicted MDRD (S/P/Bld) [Vol rate/Area] [facility] Glucose [Mass/Vol] 136 mg/dL High 70 - 99 mg/dL [facility] Interpretation and review of laboratory results Abnormal [facility] Potassium [Moles/Vol] 3.1 mmol/L Low 3.7 - 5.3 mmol/L [facility] Sodium [Moles/Vol] 138 mmol/L 135 - 144 mmol/L [facility] Urea nitrogen (BldV) [Mass/Vol] 7 mg/dL 6 - 20 mg/dL [facility] C-Reactive Proteinon 022 CRP [Mass/Vol] 186.3 mg/L High 0.0 - 5.0 mg/L [facility] Interpretation and review of laboratory results Abnormal [facility] CBC with Auto Differentialon 07-05-2021 Absolute Eos # 0.15 [place] [facility] Absolute Immature Granulocyte 0.06 [facility] Absolute Lymph # 2.56 [facility] Absolute [place] # 0.43 [facility] RS [facility] Basophils (Bld) [#/Vol] 10*3/uL B ON [facility] Basophils/100 WBC (Bld) 0 % 0 - 2 % B ON [facility] Eosinophils/100 WBC (Bld) 2 % 1 - 4 % [facility] Hematocrit (Bld) [Volume fraction] 24.6 % Low 36.3 - 47.1 % [facility] Hemoglobin.gastrointest inal spec 1 Ql (Stl) 7.9 g/dL Low 11.9 - 15.1 g/dL [facility] Immature granulocytes/100 WBC (Bld) 1 % High 0 [facility] Interpretation and review of laboratory results Abnormal [facility] Lymphocytes/100 WBC (Bld) 26 % 24 - 43 % [facility] MCH (RBC) [Entitic mass] 26.5 pg 25.2 - 33.5 pg [facility] MCHC (RBC) [Mass/Vol] 32.1 g/dL 28.4 - 34.8 g/dL [facility] MCV (RBC) [Entitic vol] 82.6 fL 82.6 - 102.9 fL [facility] Monocytes/100 WBC (Bld) 4 % 3 - 12 % B ON [facility] NRBC Automated 0.0 0.0 per 100 WBC [facility] Platelet distribution width (Bld) [Ratio] 17.5 % High 11.8 - 14.4 % [facility] Platelet mean volume (Bld) [Entitic vol] 9.7 fL 8.1 - 13.5 fL [facility] Platelets (Bld) [#/Vol] 341 10*3/uL [facility] RBC (Bld) [#/Vol] 2.98 10*6/uL Low 3.95 - 5.1 1 m/uL [facility] RBC (Bld) [#/Vol] ANISOCYTOSIS PRESENT [facility] Seg Neutrophils 68 % High 36 - 65 % [facility] Segs Absolute 6.79 [facility] WBC (Bld) [#/Vol] 10.0 10*3/uL [facility] Culture, Blood 1on 05-202 2 Bacteria identified Cx Nom (Unsp spec) Positive Abnormal [facility] Bacteria identified Cx Nom (Unsp spec) DIRECT GRAM STAIN FROM BOTTLE: GRAM POSITIVE COCCI IN CLUSTERS [facility] Bacteria identified Cx Nom (Unsp spec) STAPHYLOCOCCUS AUREUS This isolate is methicillin susceptible. Abnormal [facility] Bacteria identified Cx Nom (Unsp spec) (NOTE) Direct Gram Stain from bottle result called to and read back by: VIRGIE Parker AT 0225 ON 07/04/21 [facility] Interpretation and review of laboratory results Abnormal [facility] Special Requests LT HAND 2ML [facility] [employer] Specimen Description .BLOOD [facility]OSPITALInCoax Network [employer] [facility] OHIOBrijot [employer] [facility] Technologies [place] MODIFIED BARIUM SWALLOW W VIDEOon 07-05-2021 [facility] RIS CONSOLIDATED PN RIS CONSOLIDATED [facility] Work Phone: [employer] Work Phone: Radiology Study observation (narrative) [employer] Work Phone: MRI BRAIN W WO CONTRASTon Radiology Study observation (narrative) [employer] Work Phone: MRI CERVICAL SPINE W WO CONT RASTon 07-05-2021 [facility] RIS CONSOLIDATED PN RIS CONSOLIDATED [employer] Work Phone: MRI CERVICAL SPINE W WO CONT RASTOrdered By: Fredi Ramirez on 07-05-2021 [facility] [employer] Work Phone: Magnesiumon 07-05-2021 Magnesium [Mass/Vol] 1.9 mg/dL 1.6 - 2 .6 mg/dL [facility]ru[facility] Myelin Basic Protein, CSFon 07-05-2021 Myelin Basic Protein, CSF 3.3 ng/mL 0.00 - 5.50 ng/mL [facility] POC Glucose Fingerstickon Glucose [Mass/Vol] 102 mg/dL 65 - 105 mg/dL [facility] Glucose [Mass/Vol] 185 mg/dL High 65 - 105 mg/dL [facility] HOSPITALMedallion Analytics [employer] [facility] Interpretation and review of laboratory results Abnormal [facility] Glucose [Mass/Vol] 134 mg/dL High 65 - 105 mg/dL [facility] Interpretation and review of laboratory results Abnormal [facility] Glucose [Mass/Vol] 147 mg/dL High 65 - 105 mg/dL [facility] Interpretation and review of laboratory results Abnormal [facility] Potassiumon 07-05-2021 Potassium [Moles/Vol] 3.8 mmol/L 3.7 - 5.3 mmol/L [facility] Basic Metabolic Panel w/ Ref rafael to MGon 07-04-2021 Anion gap [Moles/Vol] 10 mmol/L 9 - 17 mmol/L [facility] Calcium [Mass/Vol] 8.0 mg/dL Low 8.6 - 10. 4 mg/dL [facility] Chloride [Moles/Vol] 102 mmol/L 98 - 10 7 mmol/L [facility] CO2 [Moles/Vol] 26 mmol/L 20 - 31 mmol/L [facility] Creatinine [Mass/Vol] 0.72 mg/dL 0.50 - 0.90 mg/dL [facility] GFR >60 >60 mL/min [facility] GFR Non- >60 >60 mL/min [facility] GFR/1.73 sq M.predicted MDRD (S/P/Bld) [Vol rate/Area] [facility] Glucose [Mass/Vol] 122 mg/dL High 70 - 99 mg/dL [facility] Interpretation and review of laboratory results Abnormal [facility] Potassium [Moles/Vol] 3.5 mmol/L Low 3.7 - 5.3 mmol/L [facility] Sodium [Moles/Vol] 138 mmol/L 135 - 144 mmol/L [facility] Urea nitrogen (BldV) [Mass/Vol] 8 mg/dL 6 - 20 mg/dL [facility] C-Reactive Proteinon 022 CRP [Mass/Vol] 191.8 mg/L High 0.0 - 5.0 mg/L [facility] Interpretation and review of laboratory results Abnormal [facility] CBC with Auto Differentialon 07-04-2021 Absolute Eos # 0.18 [place] [facility] Absolute Immature Granulocyte 0.05 [facility] Absolute Lymph # 2.24 [facility] Absolute [place] # 0.55 [facility] RS [facility] Basophils (Bld) [#/Vol] 10*3/uL B ON [facility] Basophils/100 WBC (Bld) 0 % 0 - 2 % B ON [facility] Eosinophils/100 WBC (Bld) 2 % 1 - 4 % [facility] Hematocrit (Bld) [Volume fraction] 22.8 % Low 36.3 - 47.1 % [facility] Hemoglobin.gastrointest inal spec 1 Ql (Stl) 7.4 g/dL Low 11.9 - 15.1 g/dL [facility] Immature granulocytes/100 WBC (Bld) 1 % High 0 [facility] Interpretation and review of laboratory results Abnormal [facility] Lymphocytes/100 WBC (Bld) 22 % Low 24 - 43 % [facility] MCH (RBC) [Entitic mass] 26.5 pg 25.2 - 33.5 pg [facility] MCHC (RBC) [Mass/Vol] 32.5 g/dL 28.4 - 34.8 g/dL [facility] MCV (RBC) [Entitic vol] 81.7 fL Low 82.6 - 102.9 fL [facility] Monocytes/100 WBC (Bld) 5 % 3 - 12 % B ON [facility] NRBC Automated 0.0 0.0 per 100 WBC [facility] Platelet distribution width (Bld) [Ratio] 16.9 % High 11.8 - 14.4 % [facility] Platelet mean volume (Bld) [Entitic vol] 9.0 fL 8.1 - 13.5 fL [facility] Platelets (Bld) [#/Vol] 231 10*3/uL [facility] RBC (Bld) [#/Vol] 2.79 10*6/uL Low 3.95 - 5.1 1 m/uL [facility] RBC (Bld) [#/Vol] ANISOCYTOSIS PRESENT [facility] Seg Neutrophils 71 % High 36 - 65 % [facility] Segs Absolute 7.32 [facility] WBC (Bld) [#/Vol] 10.4 10*3/uL [facility] Culture, Blood 1on 2 Bacteria identified Cx Nom (Unsp spec) Positive Abnormal [facility] Bacteria identified Cx Nom (Unsp spec) DIRECT GRAM STAIN FROM BOTTLE: GRAM POSITIVE COCCI IN CLUSTERS [facility] Bacteria identified Cx Nom (Unsp spec) Staphylococcus aureus Detected: mecA/C and MREJ Not Detected Methodology- Polymerase Chain Reaction (PCR) [facility] Bacteria identified Cx Nom (Unsp spec) STAPHYLOCOCCUS AUREUS Abnormal [facility] Bacteria identified Cx Nom (Unsp spec) (NOTE) Direct Gram Stain from bottle and Polymerase Chain Reaction (PCR) results called to and read back by: VIRGIE Joaquin on 07/03/21 at 7:45 [facility] Interpretation and review of laboratory results Abnormal [facility] Special Requests L HAND [address] [facility] Specimen Description .BLOOD [facility] MISCELLANEOUS TESTINGon 06-17 Send Out Report PERFORMED AT [facility] Test Name [facility] ENC2 CSF [facility] MRI CERVICAL SPINE W WO CONT RASTon 07-04-2021 Radiology Study observation (narrative) [facility] Work Phone: Magnesiumon 07-04-2021 Magnesium [Mass/Vol] 1.8 mg/dL 1.6 - 2 .6 mg/dL [facility] POC Glucose Fingerstickon Glucose [Mass/Vol] 113 mg/dL High 65 - 105 mg/dL [facility] Interpretation and review of laboratory results Abnormal [facility] Glucose [Mass/Vol] 188 mg/dL High 65 - 105 mg/dL [facility] Interpretation and review of laboratory results Abnormal [facility] Glucose [Mass/Vol] 118 mg/dL High 65 - 105 mg/dL [facility] Interpretation and review of laboratory results Abnormal [facility] Glucose [Mass/Vol] 135 mg/dL High 65 - 105 mg/dL [facility] Interpretation and review of laboratory results Abnormal [facility] Basic Metabolic Panel w/ Ref rafael to MGon 07-03-2021 Anion gap [Moles/Vol] 11 mmol/L 9 - 17 mmol/L [facility] Calcium [Mass/Vol] 8.3 mg/dL Low 8.6 - 10. 4 mg/dL [facility] Chloride [Moles/Vol] 98 mmol/L 98 - 10 7 mmol/L [facility] CO2 [Moles/Vol] 25 mmol/L 20 - 31 mmol/L [facility] Creatinine [Mass/Vol] 0.81 mg/dL 0.50 - 0.90 mg/dL [facility] GFR >60 >60 mL/min [facility] GFR Non- >60 >60 mL/min [facility] GFR/1.73 sq M.predicted MDRD (S/P/Bld) [Vol rate/Area] [facility] Glucose [Mass/Vol] 108 mg/dL High 70 - 99 mg/dL [facility] Interpretation and review of laboratory results Abnormal [facility] Potassium [Moles/Vol] 2.9 mmol/L Critically low 3.7 - 5.3 mmol/L [facility] Sodium [Moles/Vol] 134 mmol/L Low 135 - 144 mmol/L [facility] Urea nitrogen (BldV) [Mass/Vol] 7 mg/dL 6 - 20 mg/dL [facility] C-Reactive Proteinon 022 CRP [Mass/Vol] 166.3 mg/L High 0.0 - 5.0 mg/L [facility] Interpretation and review of laboratory results Abnormal [facility] CBC with Auto Differentialon 07-03-2021 Absolute Eos # 0.19 [facility] Absolute Immature Granulocyte 0.09 [facility] Absolute Lymph # 2.40 [facility] Absolute [place] # 0.64 [facility] RS [facility] Basophils (Bld) [#/Vol] 10*3/uL B ON [facility] Basophils/100 WBC (Bld) 0 % 0 - 2 % B ON [facility] Eosinophils/100 WBC (Bld) 1 % 1 - 4 % [facility] Hematocrit (Bld) [Volume fraction] 26.1 % Low 36.3 - 47.1 % [facility] Hemoglobin.gastrointest inal spec 1 Ql (Stl) 8.4 g/dL Low 11.9 - 15.1 g/dL [facility] Immature granulocytes/100 WBC (Bld) 1 % High 0 [facility] Interpretation and review of laboratory results Abnormal [facility] Lymphocytes/100 WBC (Bld) 18 % Low 24 - 43 % [facility] MCH (RBC) [Entitic mass] 26.1 pg 25.2 - 33.5 pg [facility] MCHC (RBC) [Mass/Vol] 32.2 g/dL 28.4 - 34.8 g/dL [facility] MCV (RBC) [Entitic vol] 81.1 fL Low 82.6 - 102.9 fL [facility] Monocytes/100 WBC (Bld) 5 % 3 - 12 % B ON [facility] NRBC Automated 0.0 0.0 per 100 WBC [facility] Platelet distribution width (Bld) [Ratio] 16.5 % High 11.8 - 14.4 % [facility] Platelet mean volume (Bld) [Entitic vol] 8.8 fL 8.1 - 13.5 fL [facility] Platelets (Bld) [#/Vol] 261 10*3/uL [facility] RBC (Bld) [#/Vol] 3.22 10*6/uL Low 3.95 - 5.1 1 m/uL [facility] RBC (Bld) [#/Vol] ANISOCYTOSIS PRESENT [facility] Seg Neutrophils 75 % High 36 - 65 % [facility] Segs Absolute 10.31 High [facility] WBC (Bld) [#/Vol] 13.6 10*3/uL High [facility] Culture, Blood 1on 2 Bacteria identified Cx Nom (Unsp spec) Positive Abnormal [facility] Bacteria identified Cx Nom (Unsp spec) DIRECT GRAM STAIN FROM BOTTLE: GRAM POSITIVE COCCI IN CLUSTERS [facility] Bacteria identified Cx Nom (Unsp spec) STAPHYLOCOCCUS AUREUS This isolate is methicillin susceptible. Abnormal [facility] Bacteria identified Cx Nom (Unsp spec) (NOTE) Direct Gram Stain from bottle result called to and read back by: VIRGIE Noland at 2200 on 07.01.2021 [facility] Interpretation and review of laboratory results Abnormal [facility] Specimen Description .BLOOD [facility] ECHO Complete 2D W Doppler W Coloron 07-03-2021 [facility] STV CPACS [facility] Work Phone: ECHO Complete 2D W Doppler W ColorOrdered By: Sintia Salazar on 07-03-2021 [facility] Work Phone: FL MODIFIED BARIUM SWALLOW W VIDEOon 07-03-2021 [facility] RIS CONSOLIDATED [facility] RIS CONSOL[facility]ATED [facility] Work Phone: Radiology Study observation (narrative) [facility] Work Phone: FL MODIFIED BARIUM SWALLOW W VIDEOOrdered By: Rufus Burnette on 07-03-2021 [facility] Work Phone: Hemoglobin and Hematocriton 07-03-2021 Hematocrit (Bld) [Volume fraction] 24.2 % Low 36.3 - 47.1 % [facility] Hemoglobin.gastrointest inal spec 1 Ql (Stl) 7.8 g/dL Low 11.9 - 15.1 g/dL [facility] Interpretation and review of laboratory results Abnormal [facility] Herpes simplex virus PCRon 0 5-17-2022 HSV, PCR Not detected [facility] HOSPITALMedallion Analytics SoftwareASHTABULA COUNTY [facility] Magnesiumon 07-03-2021 Magnesium [Mass/Vol] 2.0 mg/dL 1.6 - 2 .6 mg/dL [facility] NM BONE SCAN 3 PHASEon 07-03 [facility] RIS CONSOLIDATED [facility] RIS CONSOLIDATED [facility] HOSPITALInCoax Network [employer] [facility] Work Phone: Radiology Study observation (narrative) ARASELI HATFIELD [employer] Work Phone: NM BONE SCAN 3 PHASEOrdered By: Joanne Duke on 07-03-2021 Yobble [facility] CENTERMedallion Analytics Software [employer] Work Phone: POC Glucose Fingerstickon Glucose [Mass/Vol] 146 mg/dL High 65 - 105 mg/dL [facility] [employer] Interpretation and review of laboratory results Abnormal [facility]OSPITALInCoax Network [employer] [facility] Glucose [Mass/Vol] 108 mg/dL High 65 - 105 mg/dL [facility] Interpretation and review of laboratory results Abnormal [facility]OSPITALInCoax Network [employer] [facility] Glucose [Mass/Vol] 168 mg/dL High 65 - 105 mg/dL [facility] Interpretation and review of laboratory results Abnormal [facility] TracksmithASHTABULA COUNTY [facility] Glucose [Mass/Vol] 111 mg/dL High 65 - 105 mg/dL [facility] Interpretation and review of laboratory results Abnormal [facility]OSPITALMedallion Analytics SoftwareASHTABUL[facility] Potassiumon 07-03-2021 Interpretation and review of laboratory results Abnormal [facility] Potassium [Moles/Vol] 3.4 mmol/L Low 3.7 - 5.3 mmol/L [facility] HOSPITALMedallion Analytics SoftwareADVENTHEALTH HENDERSONVILLETruTag Technologies XR CERVICAL SPINE FLEXION AN D EXTENSIONon 07-03-2021 PN RIS CONSOLIDATED PN RIS CONSOLIDATED [facility] HOSPITALMedallion Analytics Software [employer] Work Phone: Radiology Study observation (narrative) ARASELI WOLF [employer] Work Phone: XR CERVICAL SPINE FLEXION AN D EXTENSIONOrdered By: Chanda Garland on 07-03-2021 [facility] Work Phone: Basic Metabolic Panel w/ Ref rafael to MGon 07-02-2021 Anion gap [Moles/Vol] 11 mmol/L 9 - 17 mmol/L [facility] Calcium [Mass/Vol] 8.0 mg/dL Low 8.6 - 10. 4 mg/dL [facility] Chloride [Moles/Vol] 98 mmol/L 98 - 10 7 mmol/L [facility] CO2 [Moles/Vol] 25 mmol/L 20 - 31 mmol/L [facility] Creatinine [Mass/Vol] 0.66 mg/dL 0.50 - 0.90 mg/dL [facility] GFR >60 >60 mL/min [facility] GFR Non- >60 >60 mL/min [facility] GFR/1.73 sq M.predicted MDRD (S/P/Bld) [Vol rate/Area] [facility] Glucose [Mass/Vol] 67 mg/dL Low 70 - 99 mg/dL [facility] Interpretation and review of laboratory results Abnormal [facility] Potassium [Moles/Vol] 2.9 mmol/L Critically low 3.7 - 5.3 mmol/L [facility] Sodium [Moles/Vol] 134 mmol/L Low 135 - 144 mmol/L [facility] Urea nitrogen (BldV) [Mass/Vol] 9 mg/dL 6 - 20 mg/dL [facility] C-Reactive Proteinon 022 CRP [Mass/Vol] 61.4 mg/L High 0.0 - 5.0 mg/L [facility] Interpretation and review of laboratory results Abnormal [facility] CBC with Auto Differentialon 07-02-2021 Absolute Eos # 0.36 [facility] HOSPITALOUR S [facility] Absolute Immature Granulocyte 0.11 [facility] Absolute Lymph # 3.45 [facility] HOSPITALO [facility] Absolute [place] # 0.69 [facility] Basophils (Bld) [#/Vol] 10*3/uL B ON [facility] Basophils/100 WBC (Bld) 0 % 0 - 2 % B ON [facility] Eosinophils/100 WBC (Bld) 2 % 1 - 4 % [facility] Hematocrit (Bld) [Volume fraction] 28.2 % Low 36.3 - 47.1 % [facility] Hemoglobin.gastrointest inal spec 1 Ql (Stl) 9.0 g/dL Low 11.9 - 15.1 g/dL [facility] Immature granulocytes/100 WBC (Bld) 1 % High 0 [facility] Interpretation and review of laboratory results Abnormal [facility] Lymphocytes/100 WBC (Bld) 21 % Low 24 - 43 % [facility] MCH (RBC) [Entitic mass] 25.9 pg 25.2 - 33.5 pg [facility] MCHC (RBC) [Mass/Vol] 31.9 g/dL 28.4 - 34.8 g/dL [facility] MCV (RBC) [Entitic vol] 81.3 fL Low 82.6 - 102.9 fL [facility] Monocytes/100 WBC (Bld) 4 % 3 - 12 % B ON [facility] NRBC Automated 0.0 0.0 per 100 WBC [facility] Platelet distribution width (Bld) [Ratio] 16.3 % High 11.8 - 14.4 % [facility] Platelet mean volume (Bld) [Entitic vol] 8.8 fL 8.1 - 13.5 fL [facility] Platelets (Bld) [#/Vol] 299 10*3/uL [facility] RBC (Bld) [#/Vol] 3.47 10*6/uL Low 3.95 - 5.1 1 m/uL [facility] RBC (Bld) [#/Vol] ANISOCYTOSIS PRESENT [facility] Seg Neutrophils 72 % High 36 - 65 % [facility] Segs Absolute 12.06 High [facility] WBC (Bld) [#/Vol] 16.7 10*3/uL High [facility] Culture, Blood 1on [id number] 2 Bacteria identified Cx Nom (Unsp spec) Positive Abnormal [facility] Bacteria identified Cx Nom (Unsp spec) DIRECT GRAM STAIN FROM BOTTLE: GRAM POSITIVE COCCI IN CLUSTERS [facility] Bacteria identified Cx Nom (Unsp spec) STAPHYLOCOCCUS AUREUS This isolate is methicillin susceptible. Abnormal [facility] Bacteria identified Cx Nom (Unsp spec) (NOTE) Direct Gram Stain from bottle result called to and read back by: VIRGIE Ferraro AT 2058 ON 06/30/21 [facility] Interpretation and review of laboratory results Abnormal [facility] Special Requests LT HAND 9ML [facility] Specimen Description .BLOOD [facility] Hemoglobin and Hematocriton 07-02-2021 Hematocrit (Bld) [Volume fraction] 24.8 % Low 36.3 - 47.1 % [facility] Hemoglobin.gastrointest inal spec 1 Ql (Stl) 8.1 g/dL Low 11.9 - 15.1 g/dL [facility] Interpretation and review of laboratory results Abnormal [facility] Hematocrit (Bld) [Volume fraction] 29.0 % Low 36.3 - 47.1 % [facility] Hemoglobin.gastrointest inal spec 1 Ql (Stl) 9.1 g/dL Low 11.9 - 15.1 g/dL [facility] Interpretation and review of laboratory results Abnormal [facility] Magnesiumon 07-02-2021 Magnesium [Mass/Vol] 2.3 mg/dL 1.6 - 2 .6 mg/dL [facility] POC Glucose Fingerstickon Glucose [Mass/Vol] 122 mg/dL High 65 - 105 mg/dL [facility] Interpretation and review of laboratory results Abnormal [facility] Glucose [Mass/Vol] 105 mg/dL 65 - 105 mg/dL [facility] Glucose [Mass/Vol] 113 mg/dL High 65 - 105 mg/dL [facility] Interpretation and review of laboratory results Abnormal [facility] Glucose [Mass/Vol] 78 mg/dL 65 - 105 mg/dL [facility] Glucose [Mass/Vol] 111 mg/dL High 65 - 105 mg/dL [facility] Interpretation and review of laboratory results Abnormal [facility] Potassiumon 07-02-2021 Interpretation and review of laboratory results Abnormal [facility] Potassium [Moles/Vol] 3.5 mmol/L Low 3.7 - 5.3 mmol/L [facility] Interpretation and review of laboratory results Abnormal [facility] Potassium [Moles/Vol] 3.5 mmol/L Low 3.7 - 5.3 mmol/L [facility] Basic Metabolic Panel w/ Ref rafael to MGon 07-01-2021 Anion gap [Moles/Vol] 10 mmol/L 9 - 17 mmol/L [facility] Calcium [Mass/Vol] 8.2 mg/dL Low 8.6 - 10. 4 mg/dL [facility] Chloride [Moles/Vol] 102 mmol/L 98 - 10 7 mmol/L [facility] CO2 [Moles/Vol] 25 mmol/L 20 - 31 mmol/L [facility] Creatinine [Mass/Vol] 0.97 mg/dL High 0.50 - 0.90 mg/dL [facility] GFR >60 >60 mL/min [facility] GFR Non- 59 mL/min Low >60 [facility] GFR/1.73 sq M.predicted MDRD (S/P/Bld) [Vol rate/Area] [facility] Glucose [Mass/Vol] 117 mg/dL High 70 - 99 mg/dL [facility] Interpretation and review of laboratory results Abnormal [facility] Potassium [Moles/Vol] 2.2 mmol/L Critically low 3.7 - 5.3 mmol/L [facility] Sodium [Moles/Vol] 137 mmol/L 135 - 144 mmol/L [facility] Urea nitrogen (BldV) [Mass/Vol] 18 mg/dL 6 - 20 mg/dL [facility] C-Reactive Proteinon 022 CRP [Mass/Vol] 38.5 mg/L High 0.0 - 5.0 mg/L [facility] Interpretation and review of laboratory results Abnormal [facility] CBC with Auto Differentialon 07-01-2021 Absolute Eos # 0.00 [facility] Absolute Immature Granulocyte 0.00 [facility] Absolute Lymph # 2.14 [facility] Absolute [place] # 0.76 [facility] Basophils (Bld) [#/Vol] 0.00 10*3/uL [facility] Basophils/100 WBC (Bld) 0 % 0 - 2 % B ON [facility] Eosinophils/100 WBC (Bld) 0 % Low 1 - 4 % [facility] Hematocrit (Bld) [Volume fraction] 28.4 % Low 36.3 - 47.1 % [facility] Hemoglobin.gastrointest inal spec 1 Ql (Stl) 9.0 g/dL Low 11.9 - 15.1 g/dL [facility] Immature granulocytes/100 WBC (Bld) 0 % 0 [facility] Interpretation and review of laboratory results Abnormal [facility] Lymphocytes/100 WBC (Bld) 17 % Low 24 - 44 % [facility] MCH (RBC) [Entitic mass] 26.2 pg 25.2 - 33.5 pg [facility] MCHC (RBC) [Mass/Vol] 31.7 g/dL 28.4 - 34.8 g/dL [facility] MCV (RBC) [Entitic vol] 82.8 fL 82.6 - 102.9 fL [facility] Monocytes/100 WBC (Bld) 6 % 1 - 7 % B ON [facility] Morphology Malachi (Bld) [Interp] ANISOCYTOSIS PRESENT [facility] NRBC Automated 0.0 0.0 per 100 WBC [facility] Platelet distribution width (Bld) [Ratio] 16.2 % High 11.8 - 14.4 % [facility] Platelet mean volume (Bld) [Entitic vol] 8.8 fL 8.1 - 13.5 fL [facility] Platelets (Bld) [#/Vol] 284 10*3/uL [facility] RBC (Bld) [#/Vol] 3.43 10*6/uL Low 3.95 - 5.1 1 m/uL [facility] Seg Neutrophils 77 % High 36 - 66 % [facility] Segs Absolute 9.70 High [facility] WBC (Bld) [#/Vol] 12.6 10*3/uL High [facility] Culture, CSFon 07-01-2021 Bacteria identified Cx Nom (Unsp spec) NO GROWTH 3 DAYS [facility] Direct Exam NO NEUTROPHILS SEEN [facility] Direct Exam NO ORGANISMS SEEN [facility] Direct Exam Gram stain made from cytocentrifuged specimen. Organisms and cells will be concentrated. [facility] Specimen Description .[facility] Hemoglobin and Hematocriton 07-01-2021 Hematocrit (Bld) [Volume fraction] 27.2 % Low 36.3 - 47.1 % [facility] Hemoglobin.gastrointest inal spec 1 Ql (Stl) 8.8 g/dL Low 11.9 - 15.1 g/dL [facility] Interpretation and review of laboratory results Abnormal [facility] Hematocrit (Bld) [Volume fraction] 26.7 % Low 36.3 - 47.1 % [facility] Hemoglobin.gastrointest inal spec 1 Ql (Stl) 8.6 g/dL Low 11.9 - 15.1 g/dL [facility] Interpretation and review of laboratory results Abnormal [facility] Lyme Disease AB, CSFon 07-01 B burgdorferi Ab,CSF 0.02 <=0.99 [facility] Magnesiumon 07-01-2021 Magnesium [Mass/Vol] 1.9 mg/dL 1.6 - 2 .6 mg/dL [facility] Magnesium [Mass/Vol] 2.0 mg/dL 1.6 - 2 .6 mg/dL [facility] Oligoclonal Bandson 07-02-19 22 CSF Isoelectric Focusing Interpretation See Note [facility] Oligo Bands Negative [facility] Oligoclonal Bands Number Matching [facility] POC Glucose Fingerstickon Glucose [Mass/Vol] 84 mg/dL 65 - 105 mg/dL [facility] Glucose [Mass/Vol] 104 mg/dL 65 - 105 mg/dL [facility] Glucose [Mass/Vol] 65 mg/dL 65 - 105 mg/dL [facility] Glucose [Mass/Vol] 107 mg/dL High 65 - 105 mg/dL [facility] Interpretation and review of laboratory results Abnormal [facility] Glucose [Mass/Vol] 115 mg/dL High 65 - 105 mg/dL [facility] Interpretation and review of laboratory results Abnormal [facility] Potassiumon 07-01-2021 Interpretation and review of laboratory results Abnormal [facility] Potassium [Moles/Vol] 2.5 mmol/L Critically low 3.7 - 5.3 mmol/L [facility] Interpretation and review of laboratory results Abnormal [facility] Potassium [Moles/Vol] 2.4 mmol/L Critically low 3.7 - 5.3 mmol/L [facility] Quantiferon TB Goldon 2021 QuantiFERON Mitogen 1.11 IU/mL [facility] QuantiFERON Nil 0.02 IU/mL [facility] Quantiferon TB Minus NIL Negative Negative [facility] Quantiferon TB1 Minus NIL 0.00 [facility] Quantiferon TB2 Minus NIL 0.00 [facility] West Nile Virus, CSFon 07-01 [place] IGG CSF 0.19 <=1.29 IV [facility] [place] IGM CSF 0 <=0.89 IV [facility] Culture, Blood 1on 2 Bacteria identified Cx Nom (Unsp spec) Positive Abnormal [facility] Bacteria identified Cx Nom (Unsp spec) DIRECT GRAM STAIN FROM BOTTLE: GRAM POSITIVE COCCI IN CLUSTERS [facility] Bacteria identified Cx Nom (Unsp spec) Staphylococcus aureus Detected: mecA/C and MREJ Not Detected [facility] Bacteria identified Cx Nom (Unsp spec) STAPHYLOCOCCUS AUREUS This isolate is methicillin susceptible. Abnormal [facility] Bacteria identified Cx Nom (Unsp spec) (NOTE) Direct Gram Stain from bottle and Polymerase Chain Reaction (PCR) results called to and read back by: Dino Casillas at 0248 on 06/29/2021. [facility] Special Requests RT FA 3 ML [facility] Specimen Description .BLOOD [facility] Culture, Blood 2on 2 Bacteria identified Cx Nom (Unsp spec) Positive Abnormal [facility] Bacteria identified Cx Nom (Unsp spec) DIRECT GRAM STAIN FROM BOTTLE: GRAM POSITIVE COCCI IN CLUSTERS [facility] Bacteria identified Cx Nom (Unsp spec) STAPHYLOCOCCUS AUREUS For susceptibility, refer to previous culture. Abnormal [facility] Bacteria identified Cx Nom (Unsp spec) (NOTE) Direct Gram Stain from bottle result called to and read back by: Dino Casillas at 0245 on 06/29/2021. [facility] Interpretation and review of laboratory results Abnormal [facility] Special Requests LEFT HAND 1 ML [facility] Specimen Description .BLOOD [facility] Hemoglobin and Hematocriton 06-30-2021 Hematocrit (Bld) [Volume fraction] 29.3 % Low 36.3 - 47.1 % [facility] Hemoglobin.gastrointest inal spec 1 Ql (Stl) 9.4 g/dL Low 11.9 - 15.1 g/dL [facility] Interpretation and review of laboratory results Abnormal [facility] POC Glucose Fingerstickon Glucose [Mass/Vol] 173 mg/dL High 65 - 105 mg/dL [facility] Interpretation and review of laboratory results Abnormal [facility] Glucose [Mass/Vol] 182 mg/dL High 65 - 105 mg/dL [facility] Interpretation and review of laboratory results Abnormal [facility] Glucose [Mass/Vol] 171 mg/dL High 65 - 105 mg/dL [facility] Interpretation and review of laboratory results Abnormal [facility] XR FOOT LEFT (MIN 3 VIEWS)on 06-30-2021 [facility] Work Phone: XR FOOT LEFT (MIN 3 VIEWS)Or dered By: Enedelia Garcia on 06-30-2021 [facility] [employer] Work Phone: Acetaminophen Levelon 2021 Acetaminophen Level <5 Low 10 - 30 ug/mL [facility] Ammoniaon 06-28-2021 Ammonia (P) [Moles/Vol] 12 umol/L 11 - 51 umol/L [facility] CBC with Auto Differentialon 06-28-2021 Absolute Bands # 0.43 [facility] He alth Absolute Eos # [facility]al th Absolute Lymph [facility] [place] # 1.08 High [facility] Hea lth Bands 2 % 0 - 10 % [facility] Basophils (Bld) [#/Vol] 0 - 2 % [facility] Basophils Absolute [facility] Eosinophils % 0 - 5 % [facility] Hematocrit (Bld) [Volume fraction] 30.9 % Low 36 - 46 % [facility] Hemoglobin.gastrointest inal spec 1 Ql (Stl) 10.1 g/dL Low 12.0 - 16.0 g/dL [facility] Interpretation and review of laboratory results Abnormal [facility] Lymphocytes/100 WBC (Bld) 7 % Low 15 - 40 % [facility] MCH (RBC) [Entitic mass] 26.2 pg 26 - 34 pg [facility] MCHC (RBC) [Mass/Vol] 32.6 g/dL 31 - 3 7 g/dL [facility] MCV (RBC) [Entitic vol] 80.5 fL 80 - 100 fL [facility] Monocytes/100 WBC (Bld) 5 % 4 - 8 % [facility] [email or web address] Morphology Malachi (Bld) [Interp] Manual Differential Performed [facility] Platelet distribution width (Bld) [Ratio] 17.1 % High 12.1 - 15.2 % [facility] Platelets (Bld) [#/Vol] 537 10*3/uL High [facility] RBC (Bld) [#/Vol] 3.83 10*6/uL Low 4.0 - 5.2 m/uL [facility] Segmented neutrophils/100 WBC (Bld) 86 % High 47 - 75 % [facility] Segs Absolute 18.48 [facility] WBC (Bld) [#/Vol] 21.5 10*3/uL Critically high [facility] CKon 06-28-2021 CK [Catalytic activity/Vol] 63 U/L 26 - 192 U/L [facility] COVID-19, Rapidon 06-28-2021 SARS-CoV-2 (COVID-19) RNA CAL+probe Ql (Unsp spec) Not detected Not Detected [facility] Comment on above: Rapid NAAT: The specimen is NEGATIVE for SARS-CoV-2, the novel coronavirus associated with COVID-19. The ID NOW COVID-19 assay is designed to detect the virus that causes COVID-19 in patients with signs and symptoms of infection who are suspected of COVID-19. An individual without symptoms of COVID-19 and who is not shedding SARS-CoV-2 virus would expect to have a negative (not detected) result in this assay. Negative results should be treated as presumptive and, if inconsistent with clinical signs and symptoms or necessary for patient management, should be tested with an alternative molecular assay. Negative results do not preclude SARS-CoV-2 infection and should not be used as the sole basis for patient management decisions. Fact sheet for Healthcare Providers: https://www.fda.gov/media/730662/download Fact sheet for Patients: https://www.fda.gov/media/104841/download Methodology: Isothermal Nucleic Acid Amplification Specimen Description .NASOPHARYNGEAL SWAB [facility] CT ABDOMEN PELVIS W IV CONTR AST Additional Contrast? Noneon 06-28-2021 1. No evidence of bowel obstruction. 2. Normal appendix. 3. Status post cholecystectomy. [facility] CONSOL[facility] EXAMINATION: CT ABDOMEN PELVIS W IV CONTRAST, 06/28/2021 5:44 AM EDT HISTORY: Vomiting and altered mental status. COMPARISON: None. TECHNIQUE: CT scan of the abdomen and pelvis was performed after the administration of 75 mL Isovue-[address] dose reduction technique was used, including Automated Exposure Control. FINDINGS: The visualized portions of the lung bases are clear. Abdomen: The liver and spleen enhance homogeneously without focal lesion. There is no intra or extrahepatic biliary duct dilatation. The gallbladder is surgically absent. There are a couple left renal cysts with additional bilateral renal hypodensities which are too small to characterize by CT size criteria. Otherwise, the pancreas, adrenal glands, kidneys, and bowel loops, including the appendix, are unremarkable. There is no mesenteric or retroperitoneal lymphadenopathy. Pelvis: The bladder and rectum are unremarkable. There is no iliac or inguinal lymphadenopathy. The uterus is present. There is a left ovarian calcification. Otherwise, the ovaries appear within normal limits by CT. There is mild to moderate atherosclerotic disease. Bone windows show no aggressive osseous lesions. Laminectomy changes are noted at L4. [facility] Charly Brothers MD - 06/28/2021 EXAMINATION: CT ABDOMEN PELVIS W IV CONTRAST, 06/28/2021 5:44 AM EDT HISTORY: Vomiting and altered mental status. COMPARISON: None. TECHNIQUE: CT scan of the abdomen and pelvis was performed after the administration of 75 mL Isovue-[address] dose reduction technique was used, including Automated Exposure Control. FINDINGS: The visualized portions of the lung bases are clear. Abdomen: The liver and spleen enhance homogeneously without focal lesion. There is no intra or extrahepatic biliary duct dilatation. The gallbladder is surgically absent. There are a couple left renal cysts with additional bilateral renal hypodensities which are too small to characterize by CT size criteria. Otherwise, the pancreas, adrenal glands, kidneys, and bowel loops, including the appendix, are unremarkable. There is no mesenteric or retroperitoneal lymphadenopathy. Pelvis: The bladder and rectum are unremarkable. There is no iliac or inguinal lymphadenopathy. The uterus is present. There is a left ovarian calcification. Otherwise, the ovaries appear within normal limits by CT. There is mild to moderate atherosclerotic disease. Bone windows show no aggressive osseous lesions. Laminectomy changes are noted at L4. IMPRESSION: 1. No evidence of bowel obstruction. 2. Normal appendix. 3. Status post cholecystectomy. [employer] Phone: Radiology Study observation (narrative) [employer] Phone: CT ABDOMEN PELVIS W IV CONTR AST Additional Contrast? NoneOrdered By: Charly Mendoza on 06-28-2021 [facility] Work Phone: CT Head WO Contraston 2021 1. Poorly diagnostic examination due to patient motion. 2. No gross evidence of hemorrhage or mass effect. A telephone call regarding the findings in examination and limitations the study was made to and acknowledged by Dr. Boothe in the emergency department at 4:55 AM on 06/28/2021. [facility] INDICATION: 56 years old; Female. Change in mental status. TECHNIQUE: CT Head (ax/cor/sag reformats). Ionizing radiation dose reduced via iterative reconstruction/FBP blend and body size kV/mA adjustment. Comparison: Head CT dated 10/06/2016. There are extensive motion artifacts and streak artifacts. The study is poorly diagnostic. FINDINGS: POSTOPERATIVE CHANGES: None. BRAIN PARENCHYMA: Allowing for artifacts, there is no gross evidence of hemorrhage or mass effect. No midline shift or herniation. There is grossly normal shah/white differentiation. VENTRICLES/EXTRA-AXIA L SPACES: Enlarged consistent with atrophy. SINUSES/MASTOIDS: Poorly evaluated due to artifact. No gross evidence of opacification or fluid levels. Mastoid air cells are clear. MSK: No gross evidence of displaced or depressed fractures, however the calvarium is deformed due to artifacts. Incidental note is made of cystic changes in the dens and body of C2. This is not adequately evaluated in the present study. OTHER: None. [facility] MaguireKike - 06/28/2021 INDICATION: 56 years old; Female. Change in mental status. TECHNIQUE: CT Head (ax/cor/sag reformats). Ionizing radiation dose reduced via iterative reconstruction/FBP blend and body size kV/mA adjustment. Comparison: Head CT dated 10/06/2016. There are extensive motion artifacts and streak artifacts. The study is poorly diagnostic. FINDINGS: POSTOPERATIVE CHANGES: None. BRAIN PARENCHYMA: Allowing for artifacts, there is no gross evidence of hemorrhage or mass effect. No midline shift or herniation. There is grossly normal shah/white differentiation. VENTRICLES/EXTRA-AXIA L SPACES: Enlarged consistent with atrophy. SINUSES/MASTOIDS: Poorly evaluated due to artifact. No gross evidence of opacification or fluid levels. Mastoid air cells are clear. MSK: No gross evidence of displaced or depressed fractures, however the calvarium is deformed due to artifacts. Incidental note is made of cystic changes in the dens and body of C2. This is not adequately evaluated in the present study. OTHER: None. IMPRESSION: 1. Poorly diagnostic examination due to patient motion. 2. No gross evidence of hemorrhage or mass effect. A telephone call regarding the findings in examination and limitations the study was made to and acknowledged by Dr. Boohte in the emergency department at 4:55 AM on 06/28/2021. [employer] Work Phone: Radiology Study observation (narrative) [email or web address] Work Phone: CT Head WO ContrastOrdered B y: Kike Maguire on 06-28-2021 [employer] Work Phone: Comprehensive Metabolic Pane l w/ Reflex to MGon 06-28-2021 Albumin [Mass/Vol] 4 g/dL 3.5 - 5.2 g/dL [employer] ALP (Bld) [Catalytic activity/Vol] 290 U/L High 35 - 104 U/L [employer] ALT [Catalytic activity/Vol] 25 U/L 5 - 33 U/L [employer] Anion gap [Moles/Vol] 16 mmol/L 9 - 17 mmol/L [employer] AST [Catalytic activity/Vol] 16 U/L <32 [employer] Bilirubin [Mass/Vol] 0.45 mg/dL 0.30 - 1.20 mg/dL [employer] Calcium [Mass/Vol] 9.9 mg/dL 8.6 - 10. 4 mg/dL [employer] Chloride [Moles/Vol] 95 mmol/L Low 98 - 10 7 mmol/L [employer] CO2 [Moles/Vol] 27 mmol/L 20 - 31 mmol/L [employer] Creatinine [Mass/Vol] 0.89 mg/dL 0.50 - 0.90 mg/dL [employer] Free PSA/Total PSA [Mass fraction] 8.5 g/dL High 6.4 - 8.3 g/dL [employer] GFR >60 >60 mL/min [place] GFR Non- >60 >60 mL/min [facility] GFR/1.73 sq M.predicted MDRD (S/P/Bld) [Vol rate/Area] [facility] Comment on above: Average GFR for 50-5 9 years old: 93 mL/min/1.73sq m Chronic Kidney Disease: <60 mL/min/1.73sq m Kidney failure: <15 mL/min/1.73sq m eGFR calculated using average adult body mass. Additional eGFR calculator available at: http://www.InternetArray/multiple_crcl_2012.htm Glucose [Mass/Vol] 268 mg/dL High 70 - 99 mg/dL [facility] Interpretation and review of laboratory results Abnormal [facility] Potassium [Moles/Vol] 3.4 mmol/L Low 3.7 - 5.3 mmol/L [facility] Sodium [Moles/Vol] 138 mmol/L 135 - 144 mmol/L [facility] Urea nitrogen (BldV) [Mass/Vol] 25 mg/dL High 6 - 20 mg/dL [facility] Urea nitrogen/Creatinine (Bld) [Mass ratio] 28 High [facility] Ethanolon 06-28-2021 Ethanol [Mass/Vol] mg/dL <10 mg/dL [facility] Ethanol percent <0.010 % [facility] lt Lactic Acidon 06-28-2021 Lactate [Moles/Vol] 1.6 mmol/L 0.5 - 2. 2 mmol/L [facility] Lipaseon 06-28-2021 Lipase [Catalytic activity/Vol] 30 U/L 13 - 60 U/L [facility] Magnesiumon 06-28-2021 Magnesium [Mass/Vol] 1.9 mg/dL 1.6 - 2 .6 mg/dL [facility] Microscopic Urinalysison - [facility] Epithelial Cells UA 0 TO 2 /HPF [facility] RBC, UA 5 TO 10 [facility] No Panel Informationon 06-28 Interpretation and review of laboratory results Abnormal [facility] Salicylateon 06-28-2021 Salicylate Lvl <1 Low 3 - 10 mg/dL [facility] Urinalysison 06-28-2021 Bilirubin Urine Negative NEGATIVE [facility] lt Color, UA Yellow Yellow [facility] Glucose, Ur 1000 mg/dL Abnormal NEGATIVE [facility] Interpretation and review of laboratory results Abnormal [facility] Ketones Ql (U) SMALL Abnormal NEGATIVE [facility] Leukocyte esterase Test strip Ql (U) Negative NEGATIVE [facility] Nitrite, Urine Negative NEGATIVE [facility] pH, UA 7.0 [facility] Protein, UA 2+ Abnormal NEGATIVE [facility] Specific [place], UA 1.010 [facility] Turbidity UA Hazy Abnormal Clear [facility] Urinalysis Comments [facility] Urine Hgb 1+ Abnormal NEGATIVE [facility] Urobilinogen, Urine Normal Normal [facility] Urine Drug Screenon 06-29-19 Amphetamine Screen, Ur Negative NEGATIVE [facility] Comment on above: (Positive cutoff 500 ng/mL) Barbiturate Screen, Ur Negative NEGATIVE [facility] Comment on above: (Positive cutoff 200 ng/mL) Benzodiazepine Screen, Urine Negative NEGATIVE [facility] Comment on above: (Positive cutoff 150 ng/mL) Cannabinoid Scrn, Ur Negative NEGATIVE [facility] Comment on above: (Positive cutoff 50 ng/mL) Cocaine Metabolite, Urine Negative NEGATIVE [facility] Comment on above: (Positive cutoff 150 ng/mL) Interpretation and review of laboratory results Abnormal [facility] Methadone Screen, Urine Negative NEGATIVE [facility] Comment on above: (Positive cutoff 200 ng/mL) Methamphetamine, Urine Negative NEGATIVE [facility] Comment on above: (Positive cutoff 500 ng/mL) Opiates, Urine Positive Abnormal NEGATIVE [facility] Comment on above: (Positive cutoff 100 ng/mL) Oxycodone Screen, Ur Negative NEGATIVE [facility] Comment on above: (Positive cutoff 100 ng/mL) Phencyclidine, Urine Negative NEGATIVE [facility] Comment on above: (Positive cutoff 25 ng/mL) Propoxyphene, Urine Negative NEGATIVE [facility] Comment on above: (Positive cutoff 300 ng/mL) Tricyclic Antidepressants, Urine Negative NEGATIVE [facility] Comment on above: (Positive cutoff 300 ng/mL) Drug screen results are to be used for medical purposes only. All positive results are unconfirmed. Testing for employment or legal uses should be sent to a reference laboratory for confirmation. [facility] XR CHEST PORTABLEon 06-29-19 22 No acute abnormality. [facility] CLINICAL HISTORY: altered mental status COMPARISON: none FINDINGS: Portable AP view of the chest obtained. Cardiomediastinal silhouette is normal. Lungs are clear, no evidence of infiltrate, suspicious nodule, or mass. No evidence of significant pleural fluid on this portable projection. No acute bony abnormality. [facility] Leonardo Lopes M D - 06/28/2021 CLINICAL HISTORY: altered mental status COMPARISON: none FINDINGS: Portable AP view of the chest obtained. Cardiomediastinal silhouette is normal. Lungs are clear, no evidence of infiltrate, suspicious nodule, or mass. No evidence of significant pleural fluid on this portable projection. No acute bony abnormality. IMPRESSION: No acute abnormality. [employer] Work Phone: Radiology Study observation (narrative) [employer] Phone: XR CHEST PORTABLEOrdered By: Leonardo Lopes on 06-28-2021 [employer] Phone: COVID-19, MOLECULARon 2021 SARS-CoV-2 (COVID-19) RNA CAL+probe Ql (Unsp spec) Not detected Normal Not Detected [facility] Comment on above: Order Comment: This test was performed under the FDA's Emergency Use Authorization (EUA). Testing was performed using the Franci Jose Rafael SARS-CoV-2 RT-PCR AND Influenza A/B Nucleic Acid Test on the Jose Rafael Cheli System. This test has not been approved for use in asymptomatic patients and its performance in this patient population has not been evaluated. Negative results do not rule out the presence of SARS-CoV-2, influenza A, and/or influenza B. Fact sheets for the EUA can be found at the following links: For Healthcare Providers: https://www.fda.gov/media/755835/download For Patients: https://www.fda.gov/media/888266/download Performed By: #### L [id number] #### [facility] [address], [place] [address] Adilson Niño M.D. [id number] MR FOOT LEFT WITHOUT CONTRAS Ton 05-21-2021 MR FOOT LEFT WITHOUT CONTRAST EXAMINATION: [id number] MR FOOT LEFT WITHOUT CONTRAST TECHNIQUE: Multiplanar, multisequence MRI of the left foot was performed without intravenous contrast per standard protocol. COMPARISON: Left foot radiograph May 20, 2021 HISTORY: Dx: S13.9XXA (Neck sprain, initial encounter) Evaluate for left foot osteomyelitis. FINDINGS: Plantar ulceration along the head of the 1st metatarsal overlying the hallux sesamoids. There is associated subcutaneous thickening and edema centered about this ulceration which extends proximally. Dorsal soft tissue edema of the foot is also appreciated. 1st ray: Mild hallux valgus. There is moderate degenerative changes of the 1st MTP. Erosive changes a noted along the medial aspect of the metatarsal head, image 9 series 3 which demonstrates isointense signal on T1 weighted sequences and increased signal on STIR. These findings may relate to gout and is not favored to be infectious given the distance from the ulceration. Otherwise no evidence of acute osteomyelitis in the 1st ray. 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 No evidence of acute osteomyelitis. 3rd ray: No evidence of acute osteomyelitis. 4th ray: No evidence of acute osteomyelitis. 5th ray: No evidence of acute osteomyelitis The visualized Lisfranc interval is preserved. There is fatty infiltration of the muscles of the the consistent with diabetes. The major flexor and extensor tendons are grossly preserved. IMPRESSION: 1. Ulceration along the plantar aspect of the 1st metatarsal head. 2. Erosion along the medial aspect of the 1st metatarsal head with soft tissue noted. Gout would be the primary differential consideration given the location and distance away from the primary site of ulceration and less likely related to osteomyelitis. Correlate clinically. Otherwise no definite evidence of acute osteomyelitis. Workstation ID: [id number] Dictated by: JOS GUADARRAMA on FriMay 22, 2021 7:54:35 AM EDT Transcribed by: JOS GUADARRAMA on FriMay 22, 2021 7:54:35 AM EDT Finalized by: JOS GUADARRAMA on FriMay 22, 2021 7:54:35 AM EDT [facility] Comment on above: Order Comment: Injur y/Trauma or Illness?:Illness/Other How long have you had these symptoms (acute/chronic)?:Acute Reason for exam?:ulcer in ball of foot at 1st -2nd metatarsal heads, (2nd toe has been removed) x1 month Type of Exam?:Initial Additional signs and symptoms?:patient is a diabetic XR FOOT LEFT 3+ VIEWS (STAND KEISHA)on 05-20-2021 XR FOOT LEFT 3+ VIEWS (STANDARD) EXAMINATION: XR FOOT LEFT 3+ VIEWS (STANDARD) 05/20/2021 10:41 am HISTORY: ORDERING SYSTEM PROVIDED HISTORY: callused area to left plantar foot, TECHNOLOGIST PROVIDED HISTORY: Illness/Other Reason for exam: callused area to left plantar foot Cancer History: u Surgery, RadiationHistory: u Encounter Type: Initial Additional signs and symptoms: ORDERING SYSTEM PROVIDED DIAGNOSIS CODES: S13.9XXA Neck sprain, initial encounter COMPARISON: 09/01/2015 IMPRESSION: FINDINGS/ 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 No periosteal reaction. Probable intra-articular erosion at the head of the 1st metatarsal is similar to prior. 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 Bones appear severely demineralized. Achilles and plantar enthesophytes. No soft tissue gas. Workstation ID: [id number] Dictated by: LUIS TEMPLETON on Lane May 20, 2021 4:40:24 PM EDT Transcribed by: LUIS TEMPLETON on Lane May 20, 2021 4:40:24 PM EDT Finalized by: LUIS TEMPLETON on Lane May 20, 2021 4:40:24 PM EDT [facility] Comment on above: Order Comment: Injur y/Trauma or Illness?:Illness/Other How long have you had these symptoms (acute/chronic)?:Acute Reason for exam?:callused area to left plantar foot History of cancer?:u Surgeries, chemotherapy, or radiation?:u Type of Exam?:Initial Additional signs and symptoms?: CT ANGIOGRAM HEAD NECKon CT ANGIOGRAM HEAD NECK EXAMINATION: CT ANGIOGRAM HEAD NECK HISTORY: Headache, sudden, severe Injury/Trauma or Illness?:Illness/Othe r How long have you had these symptoms (acute/chronic)?:Acut e Reason for exam?:head and neck pain, sudden and severe Type of Exam?:Initial Additional signs and symptoms?:r/o vertebral artery dissection Injury/Trauma or Illness?:Illness/Othe r How long have you had these symptoms (acute/chronic)?:Acut eHeadache, sudden, severe COMPARISON: None available at time of dictation. TECHNIQUE: CT angiogram of the head and neck was performed. Coronal, sagittal and 3-D reformats were created and reviewed. Carotid stenosis measurements were made according to the NASCET criteria. Dose reduction techniques were achieved by using automated exposure control and/or adjustment of mA and/or kV according to patient size and/or use of iterative reconstruction technique CONTRAST: 75 mL of Isovue-370. FINDINGS: NECK: AORTIC ARCH: Pulsation artifacts. Origins the great vessels are grossly patent. ANTERIOR CIRCULATION:Common carotid arteries are patent. Carotid bifurcations demonstrate calcific plaque without flow-limiting stenosis. Cervical portion of the ICA patent to the skull base. POSTERIOR CIRCULATION: The V1, V2, and V3 segments of the vertebral arteries are patent. DEVELOPMENTAL ANOMALIES: None. OTHER: No thyroid nodule or adenopathy. Cervical spondylosis is noted. HEAD BRAIN: No focal lesions are seen. No mass effect is seen. No midline shift or herniation is seen. No intraparenchymal or extra-axial hemorrhage. No hyperdense intraluminal thrombus is seen. Minimal vascular calcifications are noted. Retinal banding is seen on the left. Visualized sinuses are clear. Mastoids and middle ears are clear. No displaced or depressed fractures are noted. ANTERIOR CIRCULATION: The intra petrous, intra cavernous, and supraclinoid ICA are patent. Intracranial termini are patent. CARLOS patent bilaterally. There is hypoplasia of the A1 segment on the right. MCA patent bilaterally. No stenosis, thrombus, large vessel occlusion, or aneurysm. POSTERIOR CIRCULATION: The 4 segments are patent. PICA patent on the right. SCA patent bilaterally. UNIVERSITY PROFESSOR patent bilaterally. Basilar artery and basilar tip patent. DEVELOPMENTAL ANOMALIES: None. OTHER: No intracranial hemorrhage, enhancing intracranial mass or acute infarct. IMPRESSION: 1. Intracranial and extracranial vessels are within normal limits. No stenosis, thrombus, dissection, or aneurysm. 2. No acute intracranial abnormality. No hemorrhage or mass effect. No pathologic enhancement. If there is continued suspicion for intracranial pathology, then MRI with diffusion imaging would be more sensitive. A note was placed in the stat folder for notification of the provider at 3:52 a.m. on 05/19/2021. Workstation ID: [id number] Dictated by: KIKE MAGUIRE on Sat May 19, 2021 3:53:28 AM EDT Transcribed by: KIKE MAGUIRE on Sat May 19, 2021 3:53:28 AM EDT Finalized by: KIKE MAGUIRE on Sat May 19, 2021 3:53:28 AM EDT [facility] Comment on above: Order Comment: Injur y/Trauma or Illness?:Illness/Other How long have you had these symptoms (acute/chronic)?:Acute Reason for exam?:head and neck pain, sudden and severe Type of Exam?:Initial Additional signs and symptoms?:r/o vertebral artery dissection MR BRAIN WITH AND WITHOUT CO NTRASTon 05-19-2021 MR BRAIN WITH AND WITHOUT CONTRAST EXAMINATION: MR BRAIN WITH AND WITHOUT CONTRAST HISTORY: Headache, chronic, new features or increased frequency COMPARISON: CTA head/neck 05/19/2021 TECHNIQUE: Standard MRI of the brain with and without contrast. CONTRAST: GADOTERATE MEGLUMINE 0.5 MMOL/ML (376.9 MG/ML) INTRAVENOUS SOLUTION - 13 mL, FINDINGS: No restricted diffusion, midline shift, extra-axial fluid collections, hydrocephalus, or other mass effect. Intracranial flow voids are maintained. No abnormal parenchymal, leptomeningeal, or dural enhancement. Few scattered small hyperintense T2/FLAIR periventricular and subcortical foci are likely on the basis of chronic microvascular angiopathic changes. Minimal symmetric global volume loss without lobar predominance. Slight commensurate ventricular system prominence. No mass of either internal auditory canal or cerebellopontine angle. No soft tissue abnormalities. Normal marrow signal. Paranasal sinuses and mastoid air cells are well aerated. IMPRESSION: No acute intracranial process, recent infarction, or abnormal enhancement. Workstation ID: [id number] Dictated by: JEAN ANDERSON on Sat May 19, 2021 10:41:14 PM EDT Transcribed by: JEAN ANDERSON on Sat May 19, 2021 10:41:14 PM EDT Finalized by: JEAN ANDERSON on Sat May 19, 2021 10:41:14 PM EDT Normal [facility] Comment on above: Order Comment: Injur y/Trauma or Illness?:Illness/Other How long have you had these symptoms (acute/chronic)?:Acute Reason for exam?:H/A neck pain increased after visit to chiropractor office x 4 days ago Hx. of chronic neck pain / H/A's Type of Exam?:Initial Additional signs and symptoms?:na MR CERVICAL SPINE WITH AND W ITHOUT CONTRASTon 05-19-2021 MR CERVICAL SPINE WITH AND WITHOUT CONTRAST EXAMINATION: MR CERVICAL SPINE WITH AND WITHOUT CONTRAST HISTORY: Neck pain, chronic Dx: S13.9XXA (Neck sprain, initial encounter) Injury/Trauma or Illness?:Illness/Othe r How long have you had these symptoms (acute/chronic)?:Acut e CONTRAST: GADOTERATE MEGLUMINE 0.5 MMOL/ML (376.9 MG/ML) INTRAVENOUS SOLUTION - 13 mL, TECHNIQUE: Sagittal T1, KELVIN T2, STIR, axial gradient-echo, KELVIN T2 without contrast and sagittal and axial T1-weighted images with contrast performed. COMPARISON: None. FINDINGS: Disc space narrowing and anterior spur formation C6-7 and mild anterior spur formation C5-6. The vertebral bodies and disc spaces are otherwise normal in height and alignment. The marrow signal is normal. The craniocervical junction, cervicothoracic junction and cervical cord are normal in appearance. C1-2: Normal. C2-3: Mild facet arthropathy without stenosis. C3-4: Diffuse disc bulge with an AP diameter canal of 7 mm. Mild facet arthropathy. C4-5: Central disc protrusion with an AP diameter canal of 8 mm. Facet arthropathy without stenosis. C5-6: Disc bulge and right facet arthropathy without stenosis. C6-7: No evidence of stenosis. C7-T1: Normal. IMPRESSION: 1. Mild discogenic disease with an AP diameter of central spinal canal of 7 mm at C3-4 and 8 mm at C4-5. No evidence of foraminal stenosis. J/ Workstation ID: [id number] Dictated by: Pili FONTAINE on Lane May 20, 2021 8:14:06 AM EDT Transcribed by: JANY FORBES on Lane May 20, 2021 8:50:25 AM EDT Finalized by: Pili FONTAINE on Lane May 20, 2021 2:03:56 PM EDT Normal [facility] Comment on above: Order Comment: Injur y/Trauma or Illness?:Illness/Other How long have you had these symptoms (acute/chronic)?:Acute Reason for exam?:H/A neck pain increased after visit to chiropractor office x 4 days ago Hx. of chronic neck pain / H/A's Type of Exam?:Initial Additional signs and symptoms?:na US ABDOMEN LIMITED STUDYon 0 05-19-2021 US ABDOMEN LIMITED STUDY EXAMINATION: US ABDOMEN LIMITED STUDY HISTORY: ORDERING SYSTEM PROVIDED HISTORY: Elevated liver enzymes, TECHNOLOGIST PROVIDED HISTORY: Illness/Other Reason for exam: elevated liver enzymes Cancer History: u Surgery, RadiationHistory: u Encounter Type: Initial Additional signs and symptoms: n ORDERING SYSTEM PROVIDED DIAGNOSIS CODES: S13.9XXA Neck sprain, initial encounter COMPARISON: None TECHNIQUE: Grayscale and color imaging was performed FINDINGS: The body of the pancreas appears normal. The head and tail was obscured due to overlying bowel gas. The liver was prominent in size measuring 20 cm. No masses or biliary dilatation was noted. Color flow is noted in the portal and hepatic veins. Right kidney measured 10.5 x 4.6 x 4.5 cm. Color flow is noted. No solid renal cortical masses or hydronephrosis was noted. The gallbladder is absent. Common bile duct measures 7 mm. No fluid is noted in the right upper quadrant. IMPRESSION: 1. The liver was prominent in size measuring 20 cm. No masses were noted. 2. The body of the pancreas appears normal. The head and tail was obscured due to overlying bowel gas. 3. The gallbladder was absent. Workstation ID: [id number] Dictated by: JOS FREDERICK on [facility] May 19, 2021 6:07:29 PM EDT Transcribed by: JOS FREDERICK on [facility] May 19, 2021 6:07:29 PM EDT Finalized by: JOS FREDERICK on [facility] May 19, 2021 6:07:29 PM EDT Normal [facility] Comment on above: Order Comment: Injur y/Trauma or Illness?:Illness/Other How long have you had these symptoms (acute/chronic)?:Acute Reason for exam?:elevated liver enzymes History of cancer?:u Surgeries, chemotherapy, or radiation?:u Type of Exam?:Initial Additional signs and symptoms?:n COVID-19, MOLECULARon 2021 SARS-CoV-2 (COVID-19) RNA CAL+probe Ql (Unsp spec) Not detected Normal Not Detected [facility] Comment on above: Result Comment: This test was performed under the FDA's Emergency Use Authorization (EUA). Testing was performed using the Xpert Xpress SARS-CoV-2 RT-PCR Focus IP assay on the [employer] Black T[employer] Dx platform. This test has not been approved for use in asymptomatic patients and its performance in this patient population has not been evaluated. Negative results do not rule out the presence of SARS-CoV-2/COVID-19. Fact sheets for this EUA can be found at the following links: For Healthcare Providers: https://www.fda.gov/media/122377/download For Patients: https://www.fda.gov/media/521640/download Performed By: #### L [id number] #### SH [address] [address] Adilson Niño M.D. [id number] CT CERVICAL SPINE WITHOUT CO NTRASTon 05-18-2021 CT CERVICAL SPINE WITHOUT CONTRAST EXAMINATION: CT CERVICAL SPINE WITHOUT CONTRAST. 05/18/2021 CLINICAL HISTORY: Patient states that a few days ago, she had a chiropractic adjustment on her neck, and after that, has been having some pretty severe pain to her neck. TECHNIQUE: Axial CT scans through the cervical spine were obtained without contrast. Sagittal and coronal reconstruction images were obtained. Dose reduction techniques were achieved by using: automated exposure control and/or adjustment of mA and/or kV according to patient size and/or use of iterative reconstruction technique. COMPARISON: None. FINDINGS: No acute fracture or posttraumatic malalignment. Straightening of the cervical spine is shown. The prevertebral soft tissue space appears normal. Mild bilateral facet arthropathy from C3 to C5 and moderate to severe right facet arthropathy at C5-C6. [id number] stenosis of the right C5-C6 neural foramen secondary to mild uncovertebral hypertrophy and moderate to severe right facet hypertrophy. Moderate anterior endplate spurs from C5-C7. Decreased disc height and discovertebral complex without central spinal stenosis. The visualized intracranial contents appear normal. The visualized neck shows no abnormal mass. The visualized upper lungs are clear. IMPRESSION: 1. No fracture or posttraumatic malalignment. If there is clinical suspicion of vertebral arterial dissection, please consider CTA of the neck. 2. Straightening of the cervical spine, likely due to positioning or muscle spasm. 3. Degenerative changes in the cervical spine without central spinal stenosis. [id number] stenosis the right C5-C6 neural foramen secondary to mild uncovertebral hypertrophy and moderate to severe right facet hypertrophy. Workstation ID: [id number] Dictated by: ALBERT MARIA on FriMay 18, 2021 5:23:47 PM EDT Transcribed by: ALBERT MARIA on FriMay 18, 2021 5:23:47 PM EDT Finalized by: ALBERT MARIA on FriMay 18, 2021 5:23:47 PM EDT [facility] Comment on above: Order Comment: Injur y/Trauma or Illness?:Injury/Trauma How long have you had these symptoms (acute/chronic)?:Acute Reason for exam?:severe neck pain and headache since chiropractic adjustment a couple days ago Type of Exam?:Initial Mechanism of injury?:chiropractic adjustment a couple days ago HVF 24-2 STANDARD - OUon HVF 24-2 STANDARD - OU OD: Reliable: 0/1 6 FL, 0% FP, 0% FN Stable: worse Findings: superior alt MD: -11.18 (-7.05) OS: Reliable: 1/17 FL, 0% FP, 12% FN Stable: worse Findings: superior forming alt MD: -7.89 (-5.69) Normal [facility] BUN CREAon 05-11-2021 Creatinine [Mass/Vol] 1.38 mg/dL High 0.50 - 1.20 mg/[facility] GFR/1.73 sq M.predicted CKD-EPI (S/P/Bld) [Vol rate/Area] 44 Low >=60 mL/min/1.73 m2 [facility] Comment on above: Reported eGFR is bas ed on the CKD-EPI 2020 equation using creatinine, age, and sex. Interpretation and review of laboratory results Abnormal [facility] Urea nitrogen [Mass/Vol] 27 mg/dL High 7 - 25 mg/dL [facility] Urea nitrogen/Creatinine [Mass ratio] 20 mg/mg [facility] Creatinine [Mass/Vol] 1.38 mg/dL High 0.50-1.20 [facility] Comment on above: Order Comment: Prior to first [facility] and every 2 weeks if baseline CR is within normal limits. Performed By: #### B CR #### [facility] (DEFAULT) [address] [place] [address] GFR/1.73 sq M.predicted among non-blacks MDRD (S/P/Bld) [Vol rate/Area] 44 mL/min/{1.73_m2} Low >=60 [facility] Comment on above: Order Comment: Prior to first [facility] and every 2 weeks if baseline CR is within normal limits. Result Comment: Repo rted eGFR is based on the CKD-EPI 2020 equation using creatinine, age, and sex. Performed By: #### B CR #### [facility] (DEFAULT) [address] [place] [address] Urea nitrogen [Mass/Vol] 27 mg/dL High 09-10 [facility] Comment on above: Order Comment: Prior to first [facility] and every 2 weeks if baseline CR is within normal limits. Performed By: #### B CR #### [facility] (DEFAULT) [address] [place] [address] Urea nitrogen/Creatinine [Mass ratio] 20 mg/mg Normal [facility] Comment on above: Order Comment: Prior to first [facility] and every 2 weeks if baseline CR is within normal limits. Performed By: #### B CR #### [facility] (DEFAULT) [address] [place] [address] CBC AND ELECTRONIC DIFFon Basophils (Bld) [#/Vol] 10*3/uL 0.00 - 0.15 K/uL [facility] Basophils/100 WBC (Bld) 0.2 % [facility] DIFF STATUS Electronic Differential [facility] Eosinophils (Bld) [#/Vol] 0.16 10*3/uL 0.00 - 0.42 K/uL [facility] Eosinophils/100 WBC (Bld) 1.9 % [facility] Erythrocyte distribution width (RBC) [Ratio] 15.4 % High 10.8 - 14.9 % [facility] Hematocrit (Bld) [Volume fraction] 36.1 % 34.9 - 44.3 % [facility] Hemoglobin (Bld) [Mass/Vol] 11.7 g/dL 11.4 - 15.2 g/dL [facility] Immature granulocytes (Bld) [#/Vol] 10*3/uL <=0.09 K/uL [facility] Immature granulocytes/100 WBC (Bld) 0.2 % [facility] Interpretation and review of laboratory results Abnormal [facility] Lymphocytes (Bld) [#/Vol] 2.68 10*3/uL 1.16 - 3.51 K/uL [facility] Lymphocytes/100 WBC (Bld) 32.0 % [facility] MCH (RBC) [Entitic mass] 27.6 pg 25.9 - 33.9 pg [facility] MCHC (RBC) [Mass/Vol] 32.4 g/dL 31.4 - 35.9 g/dL [facility] MCV (RBC) [Entitic vol] 85.1 fL 79.6 - 97.7 fL [facility] Monocytes (Bld) [#/Vol] 0.37 10*3/uL 0.22 - 0.87 K/uL [facility] Monocytes/100 WBC (Bld) 4.4 % [facility] Neutrophils (Bld) [#/Vol] 5.13 10*3/uL 1.64 - 7.28 K/uL [facility] Nucleated RBC/100 WBC (Bld) [Ratio] 0.0 % <=0.2 /100 WBC [facility] Platelet mean volume (Bld) [Entitic vol] 9.8 fL 8.5 - 12.2 fL [facility] Platelets (Bld) [#/Vol] 338 10*3/uL 150 - 393 K/uL [facility] RBC (Bld) [#/Vol] 4.24 10*6/uL [facility] Segmented neutrophils/100 WBC (Bld) 61.3 % [facility] WBC (Bld) [#/Vol] 8.38 10*3/uL 3.99 - 11.19 K/uL [facility] Basophils (Bld) [#/Vol] 10*3/uL Normal 0.00-0.15 O [facility] Comment on above: Order Comment: Prior to first [facility] and then every 2 weeks.until results within normal limits. Collect weekly if baseline is abnormal. Performed By: #### L [id number] #### [facility] (DEFAULT) [address] [address] Basophils/100 WBC (Bld) 0.2 % Normal [facility] Comment on above: Order Comment: Prior to first [facility] and then every 2 weeks.until results within normal limits. Collect weekly if baseline is abnormal. Performed By: #### L [id number] #### [facility] (DEFAULT) [address] [address] DIFF STATUS Electronic Differential Normal [facility] Comment on above: Order Comment: Prior to first [facility] and then every 2 weeks.until results within normal limits. Collect weekly if baseline is abnormal. Performed By: #### L [id number] #### [facility] (DEFAULT) [address] [address] Eosinophils (Bld) [#/Vol] 0.16 10*3/uL Normal 0.00-0.42 [facility] Comment on above: Order Comment: Prior to first [facility] and then every 2 weeks.until results within normal limits. Collect weekly if baseline is abnormal. Performed By: #### L [id number] #### [facility] (DEFAULT) [address] [address] Eosinophils/100 WBC (Bld) 1.9 % Normal [facility] Comment on above: Order Comment: Prior to first [facility] and then every 2 weeks.until results within normal limits. Collect weekly if baseline is abnormal. Performed By: #### L [id number] #### [facility] (DEFAULT) [address] [address] Hematocrit (Bld) [Volume fraction] 36.1 % Normal 34.9-44.3 [facility] Comment on above: Order Comment: Prior to first [facility] and then every 2 weeks.until results within normal limits. Collect weekly if baseline is abnormal. Performed By: #### L [id number] #### [facility] (DEFAULT) [address] [address] Hemoglobin (Bld) [Mass/Vol] 11.7 g/dL Normal 11.4-15.2 [facility] Comment on above: Order Comment: Prior to first [facility] and then every 2 weeks.until results within normal limits. Collect weekly if baseline is abnormal. Performed By: #### L [id number] #### [facility] (DEFAULT) [address] [address] Immature Grans % 0.2 % Normal [facility] Comment on above: Order Comment: Prior to first [facility] and then every 2 weeks.until results within normal limits. Collect weekly if baseline is abnormal. Performed By: #### L [id number] #### [facility] (DEFAULT) [address] [address] Immature Grans Absolute <0.04 Normal <=0.09 [facility] Comment on above: Order Comment: Prior to first [facility] In[facility] and then every 2 weeks.until results within normal limits. Collect weekly if baseline is abnormal. Performed By: #### L [id number] #### [facility] (DEFAULT) [address] [address] Lymphocytes (Bld) [#/Vol] 2.68 10*3/uL Normal 1.16-3.51 [facility] Comment on above: Order Comment: Prior to first [facility] and then every 2 weeks.until results within normal limits. Collect weekly if baseline is abnormal. Performed By: #### L [id number] #### [facility] (DEFAULT) [address] [address] Lymphocytes/100 WBC (Bld) 32.0 % Normal [facility] Comment on above: Order Comment: Prior to first [facility] and then every 2 weeks.until results within normal limits. Collect weekly if baseline is abnormal. Performed By: #### L [id number] #### [facility] (DEFAULT) [address] [address] MCV (RBC) [Entitic vol] 85.1 fL Normal 79.6-97.7 [facility] Comment on above: Order Comment: Prior to first [facility] and then every 2 weeks.until results within normal limits. Collect weekly if baseline is abnormal. Performed By: #### L [id number] #### [facility] (DEFAULT) [address] [address] Mean Cell Hgb 27.6 pg Normal 25.9-33.9 [facility] Comment on above: Order Comment: Prior to first [facility] In[facility] and then every 2 weeks.until results within normal limits. Collect weekly if baseline is abnormal. Performed By: #### L [id number] #### [facility] (DEFAULT) [address] [address] Mean Cell Hgb Conc 32.4 g/dL Normal 31.4-35.9 [facility] Comment on above: Order Comment: Prior to first [facility] Infusion and then every 2 weeks.until results within normal limits. Collect weekly if baseline is abnormal. Performed By: #### L [id number] #### [facility] (DEFAULT) [address] [place] [address] Monocytes (Bld) [#/Vol] 0.37 10*3/uL Normal 0.22-0.87 [facility] Comment on above: Order Comment: Prior to first [facility] Infusion and then every 2 weeks.until results within normal limits. Collect weekly if baseline is abnormal. Performed By: #### L [id number] #### [facility] (DEFAULT) [address] [address] Monocytes/100 WBC (Bld) 4.4 % Normal O [facility] Comment on above: Order Comment: Prior to first [facility] Infusion and then every 2 weeks.until results within normal limits. Collect weekly if baseline is abnormal. Performed By: #### L [id number] #### [facility] (DEFAULT) [address] [place] [address] Nucleated RBC 0.0 /100 WBC Normal <=0.2 [facility] Comment on above: Order Comment: Prior to first [facility] Infusion and then every 2 weeks.until results within normal limits. Collect weekly if baseline is abnormal. Performed By: #### L [id number] #### [facility] (DEFAULT) [address] [address] Platelet mean volume (Bld) [Entitic vol] 9.8 fL Normal 8.5-12.2 [facility] Comment on above: Order Comment: Prior to first [facility] Infusion and then every 2 weeks.until results within normal limits. Collect weekly if baseline is abnormal. Performed By: #### L [id number] #### [facility] (DEFAULT) [address] [address] Platelets (Bld) [#/Vol] 338 10*3/uL Normal 150-393 [facility] Comment on above: Order Comment: Prior to first [facility] Infusion and then every 2 weeks.until results within normal limits. Collect weekly if baseline is abnormal. Performed By: #### L [id number] #### [facility] (DEFAULT) [address] [address] RBC (Bld) [#/Vol] 4.24 10*6/uL Normal 3.91-5.04 [facility] Comment on above: Order Comment: Prior to first [facility] Infusion and then every 2 weeks.until results within normal limits. Collect weekly if baseline is abnormal. Performed By: #### L [id number] #### [facility] (DEFAULT) [address] [address] RBC Distribution 15.4 % High 10.8-14.9 [facility] Comment on above: Order Comment: Prior to first [facility] In[facility] and then every 2 weeks.until results within normal limits. Collect weekly if baseline is abnormal. Performed By: #### L [id number] #### [facility] [address] [address] Segs + Bands Auto 61.3 % Normal [facility] Comment on above: Order Comment: Prior to first [facility] Infusion and then every 2 weeks.until results within normal limits. Collect weekly if baseline is abnormal. Performed By: #### L [id number] #### [facility] (DEFAULT) [address] [address] Segs + Bands,Absolute Auto 5.13 K/uL Normal 1.64-7.28 [facility] Comment on above: Order Comment: Prior to first [facility] Infusion and then every 2 weeks.until results within normal limits. Collect weekly if baseline is abnormal. Performed By: #### L [id number] #### [facility] (DEFAULT) [address] [address] WBC (Bld) [#/Vol] 8.38 10*3/uL Normal 3.99-11.19 [facility] Comment on above: Order Comment: Prior to first [facility] Infusion and then every 2 weeks.until results within normal limits. Collect weekly if baseline is abnormal. Performed By: #### L [id number] #### [facility] (DEFAULT) [address] [place] [address] BUN CREAon 04-25-2021 Creatinine [Mass/Vol] 1.29 mg/dL High 0.50-1.20 [facility] Comment on above: Order Comment: Prior to first [facility] and every 2 weeks if baseline CR is within normal limits. Performed By: #### B CR #### [facility] (DEFAULT) [address] [place] [address] GFR/1.73 sq M.predicted among non-blacks MDRD (S/P/Bld) [Vol rate/Area] 48 mL/min/{1.73_m2} Low >=60 [facility] Comment on above: Order Comment: Prior to first [facility] and every 2 weeks if baseline CR is within normal limits. Result Comment: Repo rted eGFR is based on the CKD-EPI 2020 equation using creatinine, age, and sex. Performed By: #### B CR #### [facility] (DEFAULT) [address] [address] Urea nitrogen [Mass/Vol] 27 mg/dL High 7-25 [facility] Comment on above: Order Comment: Prior to first [facility] and every 2 weeks if baseline CR is within normal limits. Performed By: #### B CR #### [facility] (DEFAULT) [address] [address] Urea nitrogen/Creatinine [Mass ratio] 21 mg/mg Normal [facility] Comment on above: Order Comment: Prior to first [facility] and every 2 weeks if baseline CR is within normal limits. Performed By: #### B CR #### [facility] (DEFAULT) [address] [address] CBC AND ELECTRONIC DIFFon Basophils (Bld) [#/Vol] 0.05 10*3/uL Normal 0.00-0.15 [facility] Comment on above: Order Comment: Prior to first [facility] and then every 2 weeks.until results within normal limits. Collect weekly if baseline is abnormal. Performed By: #### L [id number] #### [facility] (DEFAULT) [address] [address] Basophils/100 WBC (Bld) 0.6 % Normal [facility] Comment on above: Order Comment: Prior to first [facility] and then every 2 weeks.until results within normal limits. Collect weekly if baseline is abnormal. Performed By: #### L [id number] #### [facility] (DEFAULT) [address] [address] DIFF STATUS Electronic Differential Normal [facility] Comment on above: Order Comment: Prior to first [facility] and then every 2 weeks.until results within normal limits. Collect weekly if baseline is abnormal. Performed By: #### L [id number] #### [facility] (DEFAULT) [address] [address] Eosinophils (Bld) [#/Vol] 0.23 10*3/uL Normal 0.00-0.42 [facility] Comment on above: Order Comment: Prior to first [facility] and then every 2 weeks.until results within normal limits. Collect weekly if baseline is abnormal. Performed By: #### L [id number] #### [facility] (DEFAULT) [address] [address] Eosinophils/100 WBC (Bld) 2.6 % Normal [facility] Comment on above: Order Comment: Prior to first [facility] and then every 2 weeks.until results within normal limits. Collect weekly if baseline is abnormal. Performed By: #### L [id number] #### [facility] (DEFAULT) [address] [address] Hematocrit (Bld) [Volume fraction] 34.0 % Low 34.9-44.3 [facility] Comment on above: Order Comment: Prior to first [facility] and then every 2 weeks.until results within normal limits. Collect weekly if baseline is abnormal. Performed By: #### L [id number] #### [facility] (DEFAULT) [address] [address] Hemoglobin (Bld) [Mass/Vol] 10.7 g/dL Low 11.4-15.2 [facility] Comment on above: Order Comment: Prior to first [facility] and then every 2 weeks.until results within normal limits. Collect weekly if baseline is abnormal. Performed By: #### L [id number] #### [facility] (DEFAULT) [address] [address] Immature Grans % 0.2 % Normal [facility] Comment on above: Order Comment: Prior to first [facility] and then every 2 weeks.until results within normal limits. Collect weekly if baseline is abnormal. Performed By: #### L [id number] #### [facility] (DEFAULT) [address] [address] Immature Grans Absolute <0.04 Normal <=0.09 [facility] Comment on above: Order Comment: Prior to first [facility] and then every 2 weeks.until results within normal limits. Collect weekly if baseline is abnormal. Performed By: #### L [id number] #### [facility] (DEFAULT) [address] [address] Lymphocytes (Bld) [#/Vol] 2.20 10*3/uL Normal 1.16-3.51 [facility] Comment on above: Order Comment: Prior to first [facility] and then every 2 weeks.until results within normal limits. Collect weekly if baseline is abnormal. Performed By: #### L [id number] #### [facility] (DEFAULT) [address] [address] Lymphocytes/100 WBC (Bld) 24.5 % Normal [facility] Comment on above: Order Comment: Prior to first [facility] and then every 2 weeks.until results within normal limits. Collect weekly if baseline is abnormal. Performed By: #### L [id number] #### [facility] (DEFAULT) [address] [address] MCV (RBC) [Entitic vol] 85.4 fL Normal 79.6-97.7 [facility] Comment on above: Order Comment: Prior to first [facility] and then every 2 weeks.until results within normal limits. Collect weekly if baseline is abnormal. Performed By: #### L [id number] #### [facility] (DEFAULT) [address] [address] Mean Cell Hgb 26.9 pg Normal 25.9-33.9 [facility] Comment on above: Order Comment: Prior to first [facility] and then every 2 weeks.until results within normal limits. Collect weekly if baseline is abnormal. Performed By: #### L [id number] #### [facility] [address] [address] Mean Cell Hgb Conc 31.5 g/dL Normal 31.4-35.9 [facility] Comment on above: Order Comment: Prior to first [facility] and then every 2 weeks.until results within normal limits. Collect weekly if baseline is abnormal. Performed By: #### L [id number] #### [facility] (DEFAULT) [address] [address] Monocytes (Bld) [#/Vol] 0.41 10*3/uL Normal 0.22-0.87 [facility] Comment on above: Order Comment: Prior to first [facility] and then every 2 weeks.until results within normal limits. Collect weekly if baseline is abnormal. Performed By: #### L [id number] #### [facility] (DEFAULT) [address] [address] Monocytes/100 WBC (Bld) 4.6 % Normal [facility] Comment on above: Order Comment: Prior to first [facility] and then every 2 weeks.until results within normal limits. Collect weekly if baseline is abnormal. Performed By: #### L [id number] #### [facility] (DEFAULT) [address] [address] Nucleated RBC 0.0 /100 WBC Normal <=0.2 [facility] Comment on above: Order Comment: Prior to first [facility] and then every 2 weeks.until results within normal limits. Collect weekly if baseline is abnormal. Performed By: #### L [id number] #### [facility] (DEFAULT) [address] [address] Platelet mean volume (Bld) [Entitic vol] 9.8 fL Normal 8.5-12.2 [facility] Comment on above: Order Comment: Prior to first [facility] and then every 2 weeks.until results within normal limits. Collect weekly if baseline is abnormal. Performed By: #### L [id number] #### [facility] (DEFAULT) [address] [address] Platelets (Bld) [#/Vol] 389 10*3/uL Normal 150-393 [facility] Comment on above: Order Comment: Prior to first [facility] and then every 2 weeks.until results within normal limits. Collect weekly if baseline is abnormal. Performed By: #### L [id number] #### [facility] [address] [address] RBC (Bld) [#/Vol] 3.98 10*6/uL Normal 3.91-5.04 [facility] Comment on above: Order Comment: Prior to first [facility] and then every 2 weeks.until results within normal limits. Collect weekly if baseline is abnormal. Performed By: #### L [id number] #### [facility] (DEFAULT) [address] [address] RBC Distribution 14.8 % Normal 10.8-14.9 [facility] Comment on above: Order Comment: Prior to first [facility] and then every 2 weeks.until results within normal limits. Collect weekly if baseline is abnormal. Performed By: #### L [id number] #### [facility] (DEFAULT) [address] [address] Segs + Bands Auto 67.5 % Normal [facility] Comment on above: Order Comment: Prior to first [facility] and then every 2 weeks.until results within normal limits. Collect weekly if baseline is abnormal. Performed By: #### L [id number] #### [facility] (DEFAULT) [address] [address] Segs + Bands,Absolute Auto 6.07 K/uL Normal 1.64-7.28 [facility] Comment on above: Order Comment: Prior to first [facility] and then every 2 weeks.until results within normal limits. Collect weekly if baseline is abnormal. Performed By: #### L [id number] #### [facility] (DEFAULT) [address] [address] WBC (Bld) [#/Vol] 8.98 10*3/uL Normal 3.99-11.19 [facility] Comment on above: Order Comment: Prior to first [facility] In[facility] and then every 2 weeks.until results within normal limits. Collect weekly if baseline is abnormal. Performed By: #### L [id number] #### [facility] (DEFAULT) [address] [address] CBC AND ELECTRONIC DIFFon Basophils (Bld) [#/Vol] 10*3/uL Normal 0.00-0.15 [facility] Comment on above: Order Comment: Prior to first [facility] In[facility] and then every 2 weeks.until results within normal limits. Collect weekly if baseline is abnormal. Performed By: #### L [id number] #### [facility] (DEFAULT) [address] [address] Basophils/100 WBC (Bld) 0.3 % Normal [facility] Comment on above: Order Comment: Prior to first [facility] and then every 2 weeks.until results within normal limits. Collect weekly if baseline is abnormal. Performed By: #### L [id number] #### [facility] (DEFAULT) [address] [address] DIFF STATUS Electronic Differential Normal [facility] Comment on above: Order Comment: Prior to first [facility] and then every 2 weeks.until results within normal limits. Collect weekly if baseline is abnormal. Performed By: #### L [id number] #### [facility] (DEFAULT) [address] [address] Eosinophils (Bld) [#/Vol] 0.24 10*3/uL Normal 0.00-0.42 [facility] Comment on above: Order Comment: Prior to first [facility] In[facility] and then every 2 weeks.until results within normal limits. Collect weekly if baseline is abnormal. Performed By: #### L [id number] #### [facility] (DEFAULT) [address] [address] Eosinophils/100 WBC (Bld) 2.4 % Normal [facility] Comment on above: Order Comment: Prior to first [facility] and then every 2 weeks.until results within normal limits. Collect weekly if baseline is abnormal. Performed By: #### L [id number] #### [facility] (DEFAULT) [address] [address] Hematocrit (Bld) [Volume fraction] 33.4 % Low 34.9-44.3 [facility] Comment on above: Order Comment: Prior to first [facility] and then every 2 weeks.until results within normal limits. Collect weekly if baseline is abnormal. Performed By: #### L [id number] #### [facility] (DEFAULT) [address] [address] Hemoglobin (Bld) [Mass/Vol] 10.3 g/dL Low 11.4-15.2 [facility] Comment on above: Order Comment: Prior to first [facility] In[facility] and then every 2 weeks.until results within normal limits. Collect weekly if baseline is abnormal. Performed By: #### L [id number] #### [facility] (DEFAULT) [address] [address] Immature Grans % 0.2 % Normal [facility] Comment on above: Order Comment: Prior to first [facility] In[facility] and then every 2 weeks.until results within normal limits. Collect weekly if baseline is abnormal. Performed By: #### L [id number] #### [facility] (DEFAULT) [address] [address] Immature Grans Absolute <0.04 Normal <=0.09 [facility] Comment on above: Order Comment: Prior to first [facility] In[facility] and then every 2 weeks.until results within normal limits. Collect weekly if baseline is abnormal. Performed By: #### L [id number] #### [facility] (DEFAULT) [address] [address] Lymphocytes (Bld) [#/Vol] 2.87 10*3/uL Normal 1.16-3.51 [facility] Comment on above: Order Comment: Prior to first [facility] In[facility] and then every 2 weeks.until results within normal limits. Collect weekly if baseline is abnormal. Performed By: #### L [id number] #### [facility] (DEFAULT) [address] [address] Lymphocytes/100 WBC (Bld) 29.1 % Normal [facility] Comment on above: Order Comment: Prior to first [facility] and then every 2 weeks.until results within normal limits. Collect weekly if baseline is abnormal. Performed By: #### L [id number] #### [facility] (DEFAULT) [address] [address] MCV (RBC) [Entitic vol] 85.2 fL Normal 79.6-97.7 [facility] Comment on above: Order Comment: Prior to first [facility] In[facility] and then every 2 weeks.until results within normal limits. Collect weekly if baseline is abnormal. Performed By: #### L [id number] #### [facility] (DEFAULT) [address] [address] Mean Cell Hgb 26.3 pg Normal 25.9-33.9 [facility] Comment on above: Order Comment: Prior to first [facility] In[facility] and then every 2 weeks.until results within normal limits. Collect weekly if baseline is abnormal. Performed By: #### L [id number] #### [facility] (DEFAULT) [address] [address] Mean Cell Hgb Conc 30.8 g/dL Low 31.4-35.9 [facility] Comment on above: Order Comment: Prior to first [facility] Infusion and then every 2 weeks.until results within normal limits. Collect weekly if baseline is abnormal. Performed By: #### L [id number] #### [facility] (DEFAULT) [address] [address] Monocytes (Bld) [#/Vol] 0.37 10*3/uL Normal 0.22-0.87 [facility] Comment on above: Order Comment: Prior to first [facility] Infusion and then every 2 weeks.until results within normal limits. Collect weekly if baseline is abnormal. Performed By: #### L [id number] #### [facility] (DEFAULT) [address] [address] Monocytes/100 WBC (Bld) 3.7 % Normal [facility] Comment on above: Order Comment: Prior to first [facility] In[facility] and then every 2 weeks.until results within normal limits. Collect weekly if baseline is abnormal. Performed By: #### L [id number] #### [facility] (DEFAULT) [address] [address] Nucleated RBC 0.0 /100 WBC Normal <=0.2 [facility] Comment on above: Order Comment: Prior to first [facility] In[facility] and then every 2 weeks.until results within normal limits. Collect weekly if baseline is abnormal. Performed By: #### L [id number] #### [facility] (DEFAULT) [address] [address] Platelet mean volume (Bld) [Entitic vol] 9.9 fL Normal 8.5-12.2 [facility] Comment on above: Order Comment: Prior to first [facility] Infusion and then every 2 weeks.until results within normal limits. Collect weekly if baseline is abnormal. Performed By: #### L [id number] #### [facility] (DEFAULT) [address] [address] Platelets (Bld) [#/Vol] 346 10*3/uL Normal 150-393 [facility] Comment on above: Order Comment: Prior to first [facility] In[facility] and then every 2 weeks.until results within normal limits. Collect weekly if baseline is abnormal. Performed By: #### L [id number] #### [facility] (DEFAULT) [address] [address] RBC (Bld) [#/Vol] 3.92 10*6/uL Normal 3.91-5.04 [facility] Comment on above: Order Comment: Prior to first [facility] Infusion and then every 2 weeks.until results within normal limits. Collect weekly if baseline is abnormal. Performed By: #### L [id number] #### [facility] (DEFAULT) [address] [address] RBC Distribution 15.1 % High 10.8-14.9 [facility] Comment on above: Order Comment: Prior to first [facility] Infusion and then every 2 weeks.until results within normal limits. Collect weekly if baseline is abnormal. Performed By: #### L [id number] #### [facility] (DEFAULT) [address] [address] Segs + Bands Auto 64.3 % Normal [facility] Comment on above: Order Comment: Prior to first [facility] Infusion and then every 2 weeks.until results within normal limits. Collect weekly if baseline is abnormal. Performed By: #### L [id number] #### [facility] (DEFAULT) [address] [address] Segs + Bands,Absolute Auto 6.34 K/uL Normal 1.64-7.28 [facility] Comment on above: Order Comment: Prior to first [facility] Infusion and then every 2 weeks.until results within normal limits. Collect weekly if baseline is abnormal. Performed By: #### L [id number] #### [facility] (DEFAULT) [address] [address] WBC (Bld) [#/Vol] 9.87 10*3/uL Normal 3.99-11.19 [facility] Comment on above: Order Comment: Prior to first [facility] In[facility] and then every 2 weeks.until results within normal limits. Collect weekly if baseline is abnormal. Performed By: #### L [id number] #### [facility] (DEFAULT) [address] [address] Comprehensive metabolic 2000 panelon 04-06-2021 High Sensitivity Troponin I 9 ng/L Normal <14 [facility] Comment on above: Performed By: #### 2 4321-2 #### [facility] [address] [place] [address] Glucose Auto test strip (Bld ) [Mass/Vol]on 04-06-2021 Glucose [Mass/Vol] 219 mg/dL High 70-99 [facility] Comment on above: Performed By: #### 2 4321-2 #### [facility] [address] [place] [address] Glucose [Mass/Vol] 245 mg/dL High 70-99 [facility] Comment on above: Performed By: #### 2 4321-2 #### [facility] [address] [place] [address] Glucose [Mass/Vol] 176 mg/dL High 70-99 [facility] Comment on above: Performed By: #### 2 4321-2 #### [facility] [address] [place] [address] Glucose [Mass/Vol] 217 mg/dL High 70-99 [facility] Comment on above: Performed By: #### 2 340-8 #### [facility] [address] [place] [address] HbA1c HPLC (Bld) [Mass fract ion]on 04-06-2021 HbA1c (Bld) [Mass fraction] 11.8 % High <=5.6 [facility] Comment on above: Result Comment: HbA1 c values of 5.7-6.4 percent indicate an increased risk for developing diabetes mellitus. HbA1c values greater than or equal to 6.5 percent are diagnostic of diabetes mellitus. For diagnosis of diabetes in individuals without unequivocal hyperglycemia, results should be confirmed by repeat testing. Performed By: #### 2 4321-2 #### [facility] [address] [place] [address] Mean Bld Glu Estim. 292 mg/dL Normal [facility] Comment on above: Performed By: #### 2 4321-2 #### [facility] [address] [place] [address] Hemogram and platelets WO di fferential panel (Bld)on 04-06-2021 Basophils (Bld) [#/Vol] 0.00 10*3/uL Normal 0.00-0.20 [facility] Comment on above: Performed By: #### 2 4317-0 #### [facility] [address] [place] [address] Basophils/100 WBC (Bld) 0.4 % Normal 0.0-2.0 M [facility] Comment on above: Performed By: #### 2 4317-0 #### [facility] [address] [place] [address] Eosinophils (Bld) [#/Vol] 0.30 10*3/uL Normal 0.00-0.70 [facility] Comment on above: Performed By: #### 2 4317-0 #### [facility] [address] [place] [address] Eosinophils/100 WBC (Bld) 3.5 % Normal 0.0-7.0 [facility] Comment on above: Performed By: #### 2 4317-0 #### [facility] [address] [place] [address] Erythrocyte distribution width (RBC) [Ratio] 15.3 % High 11.0-14.8 [facility] Comment on above: Performed By: #### 2 4317-0 #### [facility] [address] [place] [address] Hematocrit (Bld) [Volume fraction] 32.4 % Low 35.0-45.0 [facility] Comment on above: Performed By: #### 2 4317-0 #### [facility] [address] [place] [address] Hemoglobin (Bld) [Mass/Vol] 10.8 g/dL Low 12.0-16.0 [facility] Comment on above: Performed By: #### 2 4317-0 #### [facility] [address] [place] [address] Lymphocytes (Bld) [#/Vol] 3.10 10*3/uL Normal 1.00-4.80 [facility] Comment on above: Performed By: #### 2 4317-0 #### [facility] [address] [place] [address] Lymphocytes/100 WBC (Bld) 39.3 % Normal 22.0-44.0 [facility] Comment on above: Performed By: #### 2 4317-0 #### [facility] [address] [place] [address] MCH 27.2 pcg Normal 27.0-34.0 [facility] Comment on above: Performed By: #### 2 4317-0 #### [facility] [address] [place] [address] MCHC (RBC) [Mass/Vol] 33.4 g/dL Normal 32.0-36.0 [facility] Comment on above: Performed By: #### 2 4317-0 #### [facility] [address] [place] [address] MCV (RBC) [Entitic vol] 81.4 fL Normal 80.0-97.0 M [facility] Comment on above: Performed By: #### 2 4317-0 #### [facility] [address] [place] [address] Monocytes (Bld) [#/Vol] 0.50 10*3/uL Normal 0.00-0.90 [facility] Comment on above: Performed By: #### 2 4317-0 #### [facility] [address] [place] [address] Monocytes/100 WBC (Bld) 6.5 % Normal 0.0-12.0 M [facility] Comment on above: Performed By: #### 2 4317-0 #### [facility] [address] [place] [address] Neutrophils Absolute 4.00 K/mcL Normal 1.80-7.70 [facility] Comment on above: Performed By: #### 2 4317-0 #### [facility] [address] [place] [address] Neutrophils/100 WBC (Bld) 50.3 % Normal 40.0-70.0 [facility] Comment on above: Performed By: #### 2 4317-0 #### [facility] [address] [place] [address] Platelet mean volume (Bld) [Entitic vol] 6.6 fL Normal 6.2-12.1 [facility] Comment on above: Performed By: #### 2 4317-0 #### [facility] [address] [place] [address] Platelets (Bld) [#/Vol] 356 10*3/uL Normal 142-424 [facility] Comment on above: Performed By: #### 2 4317-0 #### [facility] [address] [place] [address] RBC (Bld) [#/Vol] 3.98 10*6/uL Normal 3.80-5.10 [facility] Comment on above: Performed By: #### 2 4317-0 #### [facility] [address] [place] [address] WBC (Bld) [#/Vol] 7.9 10*3/uL Normal 4.6-10.2 [facility] Comment on above: Performed By: #### 2 4317-0 #### [facility] [address] [place] [address] NM STRESS TEST WITH MYOCARDI AL PERFUSIONon 04-06-2021 NM STRESS TEST WITH MYOCARDIAL PERFUSION This is a summary report. The complete report is available in the patient's medical record. If you cannot access the medical record, please contact the sending organization for a detailed fax or copy. ? Stress ECG was normal. ? Vasodilator (regadenoson) stress test was performed. Patient reported no symptoms during the stress test. Hypertensive blood pressure response. ? Normal myocardial perfusion imaging. ? Normal left ventricular function. LV ejection fraction is 67%. 4 0 169 71 109 78 161 85 1.0 67 [address]11[address].0 138 67 Normal [facility] Tropinin I.cardiac panel Hig h sensitivity methodon 04-06-2021 High Sensitivity Troponin I 9 ng/L Normal <14 [facility] Comment on above: Performed By: #### 8 9577-1 #### [facility] [address] [place] [address] Basic metabolic 2000 panelon 04-05-2021 High Sensitivity Troponin I 6 ng/L Normal <14 [facility] Comment on above: Performed By: #### 2 4321-2 #### [facility] [address] [place] [address] Hemogram and platelets WO di fferential panel (Bld)on 04-05-2021 Basophils (Bld) [#/Vol] 0.00 10*3/uL Normal 0.00-0.20 [facility] Comment on above: Performed By: #### 2 4317-0 #### [facility] [address] [place] [address] Basophils/100 WBC (Bld) 0.5 % Normal 0.0-2.0 [facility] Comment on above: Performed By: #### 2 4317-0 #### [facility] [address] [place] [address] Eosinophils (Bld) [#/Vol] 0.20 10*3/uL Normal 0.00-0.70 [facility] Comment on above: Performed By: #### 2 4317-0 #### [facility] [address] [place] [address] Eosinophils/100 WBC (Bld) 2.1 % Normal 0.0-7.0 [facility] Comment on above: Performed By: #### 2 4317-0 #### [facility] [address] [place] [address] Erythrocyte distribution width (RBC) [Ratio] 15.4 % High 11.0-14.8 [facility] Comment on above: Performed By: #### 2 4317-0 #### [facility] [address] [place] [address] Hematocrit (Bld) [Volume fraction] 33.6 % Low 35.0-45.0 [facility] Comment on above: Performed By: #### 2 4317-0 #### [facility] [address] [place] [address] Hemoglobin (Bld) [Mass/Vol] 11.1 g/dL Low 12.0-16.0 [facility] Comment on above: Performed By: #### 2 4317-0 #### [facility] [address] [place] [address] Lymphocytes (Bld) [#/Vol] 2.80 10*3/uL Normal 1.00-4.80 [facility] Comment on above: Performed By: #### 2 4317-0 #### [facility] [address] [place] [address] Lymphocytes/100 WBC (Bld) 28.2 % Normal 22.0-44.0 [facility] Comment on above: Performed By: #### 2 4317-0 #### [facility] [address] [place] [address] MCH 27.7 pcg Normal 27.0-34.0 [facility] Comment on above: Performed By: #### 2 4317-0 #### [facility] [address] [place] [address] MCHC (RBC) [Mass/Vol] 33.2 g/dL Normal 32.0-36.0 [place] [facility] Comment on above: Performed By: #### 2 4317-0 #### [facility] [address] [place] [address] MCV (RBC) [Entitic vol] 83.2 fL Normal 80.0-97.0 M [facility] Comment on above: Performed By: #### 2 4317-0 #### [facility] [address] [place] [address] Monocytes (Bld) [#/Vol] 0.50 10*3/uL Normal 0.00-0.90 [facility] Comment on above: Performed By: #### 2 4317-0 #### [facility] [address] [place] [address] Monocytes/100 WBC (Bld) 5.2 % Normal 0.0-12.0 M [facility] Comment on above: Performed By: #### 2 4317-0 #### [facility] [address] [place] [address] Neutrophils Absolute 6.30 K/mcL Normal 1.80-7.70 [facility] t [facility] Comment on above: Performed By: #### 2 4317-0 #### [facility] [address] [place] [address] Neutrophils/100 WBC (Bld) 64.0 % Normal 40.0-70.0 [facility] Comment on above: Performed By: #### 2 4317-0 #### [facility] [address] [place] [address] Platelet mean volume (Bld) [Entitic vol] 6.9 fL Normal 6.2-12.1 [facility] Comment on above: Performed By: #### 2 4317-0 #### [facility] [address] [place] [address] Platelets (Bld) [#/Vol] 386 10*3/uL Normal 142-424 [facility] Comment on above: Performed By: #### 2 4317-0 #### [facility] [address] [place] [address] RBC (Bld) [#/Vol] 4.03 10*6/uL Normal 3.80-5.10 [facility] Comment on above: Performed By: #### 2 4317-0 #### [facility] [address] [place] [address] WBC (Bld) [#/Vol] 9.8 10*3/uL Normal 4.6-10.2 [facility] Comment on above: Performed By: #### 2 4317-0 #### [facility] [address] [place] [address] Natriuretic peptide B [Mass/ Vol]on 04-05-2021 BNP 44 pcg/mL Normal 0-100 [facility] Comment on above: Result Comment: <100 : CHF is unlikely 100-400: Possible left ventricular dysfunction-unlikely acute decompensation >400: Suspicious for decompensated heart failure Performed By: #### 3 0934-4 #### [facility] [address] [place] [address] SARS-CoV-2 RNA Resp Ql CAL+p robeon 04-05-2021 SARS-CoV-2 (COVID-19) RNA CAL+probe Ql (Resp) Not detected Normal Not Detected [facility] Comment on above: Performed By: #### 9 4500-6 #### [facility] [address] [place] [address] TRANSTHORACIC ECHOCARDIOGRAM (TTE) COMPLETE (CONTRAST/BUBBLE/3D PRN)on 04-05-2021 TRANSTHORACIC ECHOCARDIOGRAM (TTE) COMPLETE (CONTRAST/BUBBLE/3D PRN) This is a summary report. The complete report is available in the patient's medical record. If you cannot access the medical record, please contact the sending organization for a detailed fax or copy. ? Left ventricle cavity size is normal. Left ventricular systolic function is in the normal range. EF by 2D Strickland biplane is 69%. ? No regional LV wall motion abnormalities noted. ? Left ventricle wall thickness is normal. ? Right ventricle cavity is normal. Right ventricular systolic function is normal. 50 65 59 16 19 19 1.0 4.7 2.7 1.9 0.8 3 22.7 1.0 4 1.0 6 7 68 71 69 2.8 64 5.0 5.2 16 16 44 3.3 1.7 6 6 34.4 1.5 9 1.9 1.9 3.0 2.9 1.7 4.9 97 1.4 8 4.2 204 75 1.22 0.79 3 28.5 2.9 2.3 148 1.1 5 8 2.9 7.8 2.5 12 40 11 12 39 2.0 0.43 0.66 43 1.3 227 1.14 1.16 2.87 1.65 1.83 0.67 0.6 13 12 36 27 1.1 30 10 1.68 Normal [facility] Tropinin I.cardiac panel Hig h sensitivity methodon 04-05-2021 High Sensitivity Troponin I 12 ng/L Normal <14 [facility] Comment on above: Performed By: #### 8 9577-1 #### [facility] ([facility]) [facility] [address] [place] [address] Urinalysis dipstick W Reflex Culture panel (U)on 04-05-2021 Bilirubin, Urine Negative Normal Negative [facility] Comment on above: Performed By: #### 5 7019-2 #### [facility] [address] [place] [address] Blood, Urine Negative Normal Negative [facility] Comment on above: Performed By: #### 5 7019-2 #### [facility] [address] [place] [address] Clarity (U) Clear Normal Clear [facility] Comment on above: Performed By: #### 5 7019-2 #### [facility] [address] [place] [address] Color (U) Straw Abnormal Yellow [facility] Comment on above: Performed By: #### 5 7019-2 #### [facility] [address] [place] [address] Glucose Ql (U) >=500 Abnormal Normal [facility] Comment on above: Performed By: #### 5 7019-2 #### [facility] [address] [place] [address] Ketones Ql (U) Negative Normal Negative [facility] Comment on above: Performed By: #### 5 7019-2 #### [facility] [address] [place] [address] Leukocytes, Urine Negative Normal Negative [facility] Comment on above: Performed By: #### 5 7019-2 #### [facility] [address] [place] [address] Nitrite, Urine Negative Normal Negative [facility] Comment on above: Performed By: #### 5 7019-2 #### [facility] [address] [place] [address] pH (U) 7.0 [pH] Normal 5.0-8.0 [facility] Comment on above: Performed By: #### 5 7019-2 #### [facility] [address] [place] [address] Protein, Urine Negative Normal Negative [facility] Comment on above: Performed By: #### 5 7019-2 #### [facility] [address] [place] [address] Specific [place] Urine 1.014 Normal 1.002-1.030 [facility] Comment on above: Performed By: #### 5 7019-2 #### [facility] [address] [place] [address] Urobilinogen, Urine Normal Normal Normal [facility] Comment on above: Performed By: #### 5 7019-2 #### [facility] [address] [place] [address] XR CHEST 1 VIEWon 04-05-2021 XR CHEST 1 VIEW EXAMINATION TYPE: XR CHEST 1 VIEW DATE OF EXAM : 04/05/2021 2:57 PM HISTORY: Chest pain COMPARISON: None available FINDINGS: No pneumothorax, consolidation, or large effusion identified. Cardiac silhouette is within normal limits. Degenerative changes with surgical anchor in the left humeral head. IMPRESSION: No acute findings. -------- FINAL REPORT -------- Dictated By: Luis Vuong Dictated Date: 04/05/2021 14:59 Assigned Physician: Luis Vuong Reviewed and Electronically Signed By: Luis Vuong Signed Date: 04/05/2021 15:01 Workstation ID: [id number] Transcribed By: Self Edit Transcribed Date: 04/05/2021 14:59 Normal [facility] XR HAND LEFT 3+ VIEWSon 02- XR HAND LEFT 3+ VIEWS EXAM TYPE: XR HAND LEFT 3+ VIEWS EXAM DATE AND TIME: 03/20/2021 11:46 AM EST INDICATION: 56 years old Female with left hand pain. COMPARISON: Prior left hand radiograph dated 07/09/2018 and 12/22/2019 TECHNIQUE: AP, lateral, and oblique views of the left hand. FINDINGS: Redemonstration of postsurgical changes/deformity at the tuft of the distal phalanx of the third digit with soft tissue swelling. There is evidence of moderate to severe joint space narrowing with marginal spurring at the radiocarpal, intercarpal, metacarpophalangeal and interphalangeal joints. IMPRESSION: 1. 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 2. Deformity at the tuft of the distal phalanx of the third digit with adjacent soft tissue swelling at the stump. No radiographic evidence of acute osteomyelitis. 3. Soft tissue swelling at the proximal interphalangeal joints of the second, third and fourth fingers. Normal [facility] CBC(NO DIFF)on 03-15-2021 Erythrocyte distribution width (RBC) [Ratio] 15.2 % High 11.5-14.5 [facility] Comment on above: Performed By: #### H EMOG, CMPF, LIP2, RTSH, T42 #### [place] [address] Hematocrit (Bld) [Volume fraction] 34.3 % Low 36.0-48.0 [facility] Comment on above: Performed By: #### H EMOG, CMPF, LIP2, RTSH, T42 #### Testing performed at [place] [id number] Hemoglobin (Bld) [Mass/Vol] 11.1 g/dL Low 12.0-16.0 [facility] Comment on above: Performed By: #### H EMOG, CMPF, LIP2, RTSH, T42 #### Testing performed at [place] [id number] MCH (RBC) [Entitic mass] 27.0 pg Normal 26.0-35.0 [facility] Comment on above: Performed By: #### H EMOG, CMPF, LIP2, RTSH, T42 #### Testing performed at [place] [id number] MCHC (RBC) [Mass/Vol] 32.4 g/dL Normal 27.0-37.0 [facility] Comment on above: Performed By: #### H EMOG, CMPF, LIP2, RTSH, T42 #### [place] [address] MCV (RBC) [Entitic vol] 83.4 fL Normal 80.0-100.0 [facility] Comment on above: Performed By: #### H EMOG, CMPF, LIP2, RTSH, T42 #### [place] [address] Platelet mean volume (Bld) [Entitic vol] 7.1 fL Low 7.4-11.0 [facility] Comment on above: Result Comment: Test ing performed at [place] [address] Performed By: #### H EMOG, CMPF, LIP2, RTSH, T42 #### [place] [address] Platelets (Bld) [#/Vol] 339 10*3/uL Normal 130.0-400.0 [facility] Comment on above: Performed By: #### H EMOG, CMPF, LIP2, RTSH, T42 #### [place] [address] RBC (Bld) [#/Vol] 4.11 10*6/uL Normal 4.0-5.4 [facility] Comment on above: Performed By: #### H EMOG, CMPF, LIP2, RTSH, T42 #### [place] [address] WBC (Bld) [#/Vol] 6.8 10*3/uL Normal 3.6-11.0 [facility] Comment on above: Performed By: #### H EMOG, CMPF, LIP2, RTSH, T42 #### [place] [address] CMP FASTINGon 03-15-2021 A:G RATIO 1.1 RATIO Low 1.3-2.2 [facility] Comment on above: Performed By: #### H EMOG, CMPF, LIP2, RTSH, T42 #### Testing performed at [address] [address] ALBUMIN 3.9 G/dl Normal 3.5-5.0 [facility] Comment on above: Performed By: #### H EMOG, CMPF, LIP2, RTSH, T42 #### Testing performed at [address] [address] ALP [Catalytic activity/Vol] 113 U/L Normal 38-126 [facility] Comment on above: Performed By: #### H EMOG, CMPF, LIP2, RTSH, T42 #### Testing performed at [address] [address] ALT [Catalytic activity/Vol] 14 U/L Normal <35 [facility] Comment on above: Performed By: #### H EMOG, CMPF, LIP2, RTSH, T42 #### Testing performed at [address] [address] AST [Catalytic activity/Vol] 19 U/L Normal 14-36 [facility] Comment on above: Performed By: #### H EMOG, CMPF, LIP2, RTSH, T42 #### Testing performed at [address] [address] Bilirubin [Mass/Vol] 0.4 mg/dL Normal 0.2-1.3 [facility] Comment on above: Performed By: #### H EMOG, CMPF, LIP2, RTSH, T42 #### Testing performed at [address] [address] Calcium [Mass/Vol] 9.6 mg/dL Normal 8.4-10.2 [facility] Comment on above: Performed By: #### H EMOG, CMPF, LIP2, RTSH, T42 #### Testing performed at [address] [address] Chloride [Moles/Vol] 105 mmol/L Normal 98-107 [facility] Comment on above: Result Comment: Vasyl hickman note: Triglyceride levels of 600mg/dL or higher may positively bias chloride results by approximately 2.1 mmol Performed By: #### H EMOG, CMPF, LIP2, RTSH, T42 #### [place] [address] CO2 [Moles/Vol] 24 mmol/L Normal 22-[address] [facility] Comment on above: Performed By: #### H EMOG, CMPF, LIP2, RTSH, T42 #### [place] [address] Creatinine [Mass/Vol] 1.20 mg/dL Normal 0.7-1.2 [facility] Comment on above: Performed By: #### H EMOG, CMPF, LIP2, RTSH, T42 #### [place] [address] EST. GFR, 59 ml/min/1.73sq.m [facility] Comment on above: Performed By: #### H EMOG, CMPF, LIP2, RTSH, T42 #### [place] [address] EST. GFR,Non 49 ml/min/1.73sq.m [facility] Comment on above: Performed By: #### H EMOG, CMPF, LIP2, RTSH, T42 #### [place] [address] GFR Information Average GFR for 50-5 9 years old = 93. Normal [facility] Comment on above: Result Comment: [employer] [place] Kidney disease, GFR = <60. Kidney failure, GFR = <15. The GFR estimate is not adjusted for extreme body surface area or acute process, nor has it been validated for women or ethnic groups other than and . Testing performed at [place] [address] Performed By: #### H EMOG, CMPF, LIP2, RTSH, T42 #### Testing performed at [place] [id number] Glucose [Mass/Vol] 222 mg/dL High 70-100 [facility] Comment on above: Result Comment: NORMAL <100 mg/dL PREDIABETES 101-126 mg/dL DIABETES 126 mg/dL or higher Performed By: #### H EMOG, CMPF, LIP2, RTSH, T42 #### Testing performed at [place] [id number] Potassium [Moles/Vol] 4.5 mmol/L Normal 3.5-5.1 [facility] Comment on above: Performed By: #### H EMOG, CMPF, LIP2, RTSH, T42 #### Testing performed at [place] [id number] Protein [Mass/Vol] 7.3 g/dL Normal 6.3-8.2 [facility] Comment on above: Performed By: #### H EMOG, CMPF, LIP2, RTSH, T42 #### Testing performed at [place] [id number] Sodium [Moles/Vol] 139 mmol/L Normal 137-145 [facility] Comment on above: Performed By: #### H EMOG, CMPF, LIP2, RTSH, T42 #### [place] [address] Urea nitrogen [Mass/Vol] 26 mg/dL High 7-20 [facility] Comment on above: Performed By: #### H EMOG, CMPF, LIP2, RTSH, T42 #### [place] [address] FREE T4on 03-15-2021 Free T4 [Mass/Vol] 1.07 ng/dL Normal 0.78-2.19 [facility] Comment on above: Result Comment: Test ing performed at [place] [address] Performed By: #### H EMOG, CMPF, LIP2, RTSH, T42 #### [place] [address] HEMOGLOBIN A1Con 03-15-2021 Glucose [Mass/Vol] 289 mg/dL Normal [facility] HbA1c (Bld) [Mass fraction] 11.7 % High 0-6 [facility] Comment on above: Result Comment: NORMAL <5.7% PREDIABETES 5.7-6.4% DIABETES 6.5% OR HIGHER LIPID PROFILEon 03-15-2021 Cholesterol [Mass/Vol] 226 mg/dL High 107-217 [facility] Comment on above: Performed By: #### H EMOG, CMPF, LIP2, RTSH, T42 #### Testing performed at [address] [address] Cholesterol in HDL [Mass/Vol] 48 mg/dL Normal 33-75 [facility] Comment on above: Performed By: #### H EMOG, CMPF, LIP2, RTSH, T42 #### Testing performed at [address] [address] Cholesterol in LDL [Mass/Vol] 143 mg/dL Normal [facility] Comment on above: Performed By: #### H EMOG, CMPF, LIP2, RTSH, T42 #### Testing performed at [address] [address] Cholesterol in VLDL [Mass/Vol] 35 mg/dL High 5.0-25 [facility] Comment on above: Performed By: #### H EMOG, CMPF, LIP2, RTSH, T42 #### Testing performed at [address] [address] Cholesterol.total/Erika sterol in HDL [Mass ratio] 4.71 {ratio} Normal [facility] Comment on above: Result Comment: RISK TOTAL/HDL RATIO MEN WOMEN 1/2 AVERAGE 3.43 3.27 AVERAGE 4.97 4.44 2X AVERAGE 9.55 7.05 3X AVERAGE 23.99 11.04 Testing performed at [place], [place] [address] Performed By: #### H EMOG, CMPF, LIP2, RTSH, T42 #### Testing performed at [address] [address] Triglyceride [Mass/Vol] 174 mg/dL High 0-150 [facility] Comment on above: Performed By: #### H EMOG, CMPF, LIP2, RTSH, T42 #### [place] [address] MALB/CREAT RATIO,URINEon MALB/CREAT RATIO,URINE 126.2 mg MALB/g CREAT High 1. 3-30.0 [facility] Comment on above: Result Comment: Test ing performed at [place] [address] Performed By: #### M CRAT #### [place] [address] MICROALBUMIN,RANDOM URINE 133.1 mg/L High 0-16.7 [facility] Comment on above: Performed By: #### M CRAT #### [place] [address] URINE CREATININE RANDOM 105.5 MG/DL Normal [facility] Comment on above: Result Comment: NO N ORMAL VALUES ESTABLISHED FOR RANDOM SPECIMENS Performed By: #### M CRAT #### [place] [address] TSH,REFLEX FREE T4on 022 TSH,REFLEX FREE T4 7.180 uIU/ML High 0.46-4.68 [facility] Comment on above: Result Comment: Test ing performed at [place] [address] Performed By: #### H EMOG, CMPF, LIP2, RTSH, T42 #### [place] [address] BUN CREAon 03-07-2021 Creatinine [Mass/Vol] 1.16 mg/dL Normal 0.50-1.20 [facility] Comment on above: Order Comment: Prior to first [facility] and every 2 weeks if baseline CR is within normal limits. Performed By: #### B CR #### [facility] (DEFAULT) [address] [place] [address] EST GFR, 58 mL/min/1.73sqM Low >=60 [facility] Comment on above: Order Comment: Prior to first [facility] and every 2 weeks if baseline CR is within normal limits. Performed By: #### B CR #### [facility] (DEFAULT) [address] [address] EST GFR,Non 48 mL/min/1.73sqM Low >=60 [facility] Comment on above: Order Comment: Prior to first [facility] and every 2 weeks if baseline CR is within normal limits. Performed By: #### B CR #### [facility] (DEFAULT) [address] [place] [address] Urea nitrogen [Mass/Vol] 19 mg/dL Normal 7-25 [facility] Comment on above: Order Comment: Prior to first [facility] and every 2 weeks if baseline CR is within normal limits. Performed By: #### B CR #### [facility] (DEFAULT) [address] [place] [address] Urea nitrogen/Creatinine [Mass ratio] 16 mg/mg Normal [facility] Comment on above: Order Comment: Prior to first [facility] and every 2 weeks if baseline CR is within normal limits. Performed By: #### B CR #### [facility] (DEFAULT) [address] [address] CBC AND ELECTRONIC DIFFon Basophils (Bld) [#/Vol] 10*3/uL Normal 0.00-0.15 [facility] Comment on above: Order Comment: Prior to first [facility] and every 2 weeks if baseline CR is within normal limits. Performed By: #### B CR #### [facility] (DEFAULT) [address] [address] Basophils/100 WBC (Bld) 0.2 % Normal [facility] Comment on above: Order Comment: Prior to first [facility] and every 2 weeks if baseline CR is within normal limits. Performed By: #### B CR #### [facility] (DEFAULT) [address] [address] DIFF STATUS Electronic Differential Normal [facility] Comment on above: Order Comment: Prior to first [facility] and every 2 weeks if baseline CR is within normal limits. Performed By: #### B CR #### [facility] (DEFAULT) [address] [address] Eosinophils (Bld) [#/Vol] 0.21 10*3/uL Normal 0.00-0.42 [facility] Comment on above: Order Comment: Prior to first [facility] and every 2 weeks if baseline CR is within normal limits. Performed By: #### B CR #### [facility] (DEFAULT) [address] [address] Eosinophils/100 WBC (Bld) 2.3 % Normal [facility] Comment on above: Order Comment: Prior to first [facility] and every 2 weeks if baseline CR is within normal limits. Performed By: #### B CR #### [facility] (DEFAULT) [address] [address] Hematocrit (Bld) [Volume fraction] 32.6 % Low 34.9-44.3 [facility] Comment on above: Order Comment: Prior to first [facility] and every 2 weeks if baseline CR is within normal limits. Performed By: #### B CR #### [facility] (DEFAULT) [address] [address] Hemoglobin (Bld) [Mass/Vol] 10.2 g/dL Low 11.4-15.2 [facility] Comment on above: Order Comment: Prior to first [facility] and every 2 weeks if baseline CR is within normal limits. Performed By: #### B CR #### [facility] (DEFAULT) [address] [address] Immature Grans % 0.2 % Normal [facility] Comment on above: Order Comment: Prior to first [facility] and every 2 weeks if baseline CR is within normal limits. Performed By: #### B CR #### [facility] (DEFAULT) [address] [address] Immature Grans Absolute <0.04 Normal <=0.09 O [facility] Comment on above: Order Comment: Prior to first [facility] and every 2 weeks if baseline CR is within normal limits. Performed By: #### B CR #### [facility] (DEFAULT) [address] [address] Lymphocytes (Bld) [#/Vol] 2.26 10*3/uL Normal 1.16-3.51 [facility] Comment on above: Order Comment: Prior to first [facility] and every 2 weeks if baseline CR is within normal limits. Performed By: #### B CR #### [facility] (DEFAULT) [address] [address] Lymphocytes/100 WBC (Bld) 25.3 % Normal [facility] Comment on above: Order Comment: Prior to first [facility] and every 2 weeks if baseline CR is within normal limits. Performed By: #### B CR #### [facility] (DEFAULT) [address] [address] MCV (RBC) [Entitic vol] 86.2 fL Normal 79.6-97.7 O [facility] Comment on above: Order Comment: Prior to first [facility] and every 2 weeks if baseline CR is within normal limits. Performed By: #### B CR #### [facility] (DEFAULT) [address] [address] Mean Cell Hgb 27.0 pg Normal 25.9-33.9 [facility] Comment on above: Order Comment: Prior to first [facility] and every 2 weeks if baseline CR is within normal limits. Performed By: #### B CR #### [facility] (DEFAULT) [address] [address] Mean Cell Hgb Conc 31.3 g/dL Low 31.4-35.9 [facility] Comment on above: Order Comment: Prior to first [facility] and every 2 weeks if baseline CR is within normal limits. Performed By: #### B CR #### [facility] (DEFAULT) [address] [address] Monocytes (Bld) [#/Vol] 0.44 10*3/uL Normal 0.22-0.87 [facility] Comment on above: Order Comment: Prior to first [facility] and every 2 weeks if baseline CR is within normal limits. Performed By: #### B CR #### [facility] (DEFAULT) [address] [address] Monocytes/100 WBC (Bld) 4.9 % Normal O [facility] Comment on above: Order Comment: Prior to first [facility] and every 2 weeks if baseline CR is within normal limits. Performed By: #### B CR #### [facility] (DEFAULT) [address] [address] Nucleated RBC 0.0 /100 WBC Normal <=0.2 [facility] Comment on above: Order Comment: Prior to first [facility] and every 2 weeks if baseline CR is within normal limits. Performed By: #### B CR #### [facility] (DEFAULT) [address] [address] Platelet mean volume (Bld) [Entitic vol] 9.7 fL Normal 8.5-12.2 [facility] Comment on above: Order Comment: Prior to first [facility] and every 2 weeks if baseline CR is within normal limits. Performed By: #### B CR #### [facility] (DEFAULT) [address] [address] Platelets (Bld) [#/Vol] 350 10*3/uL Normal 150-393 [facility] Comment on above: Order Comment: Prior to first [facility] and every 2 weeks if baseline CR is within normal limits. Performed By: #### B CR #### [facility] (DEFAULT) [address] [address] RBC (Bld) [#/Vol] 3.78 10*6/uL Low 3.91-5.04 [facility] Comment on above: Order Comment: Prior to first [facility] and every 2 weeks if baseline CR is within normal limits. Performed By: #### B CR #### [facility] (DEFAULT) [address] [address] RBC Distribution 14.6 % Normal 10.8-14.9 [facility] Comment on above: Order Comment: Prior to first [facility] and every 2 weeks if baseline CR is within normal limits. Performed By: #### B CR #### [facility] (DEFAULT) [address] [address] Segs + Bands Auto 67.1 % Normal [facility] Comment on above: Order Comment: Prior to first [facility] and every 2 weeks if baseline CR is within normal limits. Performed By: #### B CR #### [facility] (DEFAULT) [address] [address] Segs + Bands,Absolute Auto 5.99 K/uL Normal 1.64-7.28 [facility] Comment on above: Order Comment: Prior to first [facility] and every 2 weeks if baseline CR is within normal limits. Performed By: #### B CR #### [facility] (DEFAULT) [address] [address] WBC (Bld) [#/Vol] 8.94 10*3/uL Normal 3.99-11.19 [facility] Comment on above: Order Comment: Prior to first [facility] and every 2 weeks if baseline CR is within normal limits. Performed By: #### B CR #### [facility] (DEFAULT) [address] [address] BUN CREAon 02-21-2021 Creatinine [Mass/Vol] 1.19 mg/dL Normal 0.50-1.20 [facility] Comment on above: Order Comment: Prior to first [facility] and every 2 weeks if baseline CR is within normal limits. Performed By: #### B CR #### [facility] (DEFAULT) [address] [place] [address] EST GFR, 56 mL/min/1.73sqM Low >=60 [facility] Comment on above: Order Comment: Prior to first [facility] and every 2 weeks if baseline CR is within normal limits. Performed By: #### B CR #### [facility] (DEFAULT) [address] [place] [address] EST GFR,Non 47 mL/min/1.73sqM Low >=60 [facility] Comment on above: Order Comment: Prior to first [facility] and every 2 weeks if baseline CR is within normal limits. Performed By: #### B CR #### [facility] (DEFAULT) [address] [address] Urea nitrogen [Mass/Vol] 28 mg/dL High 7-25 [facility] Comment on above: Order Comment: Prior to first [facility] and every 2 weeks if baseline CR is within normal limits. Performed By: #### B CR #### [facility] (DEFAULT) [address] [address] Urea nitrogen/Creatinine [Mass ratio] 24 mg/mg Normal [facility] Comment on above: Order Comment: Prior to first [facility] and every 2 weeks if baseline CR is within normal limits. Performed By: #### B CR #### [facility] (DEFAULT) [address] [place] [address] CBC AND ELECTRONIC DIFFon Basophils (Bld) [#/Vol] 0.05 10*3/uL Normal 0.00-0.15 [facility] Comment on above: Order Comment: Prior to first [facility] and every 2 weeks if baseline CR is within normal limits. Performed By: #### B CR #### [facility] (DEFAULT) [address] [place] [address] Basophils/100 WBC (Bld) 0.6 % Normal [facility] Comment on above: Order Comment: Prior to first [facility] and every 2 weeks if baseline CR is within normal limits. Performed By: #### B CR #### [facility] (DEFAULT) [address] [address] DIFF STATUS Electronic Differential Normal [facility] Comment on above: Order Comment: Prior to first [facility] and every 2 weeks if baseline CR is within normal limits. Performed By: #### B CR #### [facility] (DEFAULT) [address] [address] Eosinophils (Bld) [#/Vol] 0.16 10*3/uL Normal 0.00-0.42 [facility] Comment on above: Order Comment: Prior to first [facility] and every 2 weeks if baseline CR is within normal limits. Performed By: #### B CR #### [facility] (DEFAULT) [address] [address] Eosinophils/100 WBC (Bld) 1.8 % Normal [facility] Comment on above: Order Comment: Prior to first [facility] and every 2 weeks if baseline CR is within normal limits. Performed By: #### B CR #### [facility] (DEFAULT) [address] [address] Hematocrit (Bld) [Volume fraction] 34.7 % Low 34.9-44.3 [facility] Comment on above: Order Comment: Prior to first [facility] and every 2 weeks if baseline CR is within normal limits. Performed By: #### B CR #### [facility] (DEFAULT) [address] [address] Hemoglobin (Bld) [Mass/Vol] 11.0 g/dL Low 11.4-15.2 [facility] Comment on above: Order Comment: Prior to first [facility] and every 2 weeks if baseline CR is within normal limits. Performed By: #### B CR #### [facility] (DEFAULT) [address] [address] Immature Grans % 0.1 % Normal [facility] Comment on above: Order Comment: Prior to first [facility] and every 2 weeks if baseline CR is within normal limits. Performed By: #### B CR #### [facility] (DEFAULT) [address] [address] Immature Grans Absolute <0.04 Normal <=0.09 O [facility] Comment on above: Order Comment: Prior to first [facility] and every 2 weeks if baseline CR is within normal limits. Performed By: #### B CR #### [facility] (DEFAULT) [address] [address] Lymphocytes (Bld) [#/Vol] 2.61 10*3/uL Normal 1.16-3.51 [facility] Comment on above: Order Comment: Prior to first [facility] and every 2 weeks if baseline CR is within normal limits. Performed By: #### B CR #### [facility] (DEFAULT) [address] [address] Lymphocytes/100 WBC (Bld) 29.4 % Normal [facility] Comment on above: Order Comment: Prior to first [facility] and every 2 weeks if baseline CR is within normal limits. Performed By: #### B CR #### [facility] (DEFAULT) [address] [address] MCV (RBC) [Entitic vol] 85.5 fL Normal 79.6-97.7 [facility] Comment on above: Order Comment: Prior to first [facility] and every 2 weeks if baseline CR is within normal limits. Performed By: #### B CR #### [facility] (DEFAULT) [address] [address] Mean Cell Hgb 27.1 pg Normal 25.9-33.9 [facility] Comment on above: Order Comment: Prior to first [facility] and every 2 weeks if baseline CR is within normal limits. Performed By: #### B CR #### [facility] (DEFAULT) [address] [address] Mean Cell Hgb Conc 31.7 g/dL Normal 31.4-35.9 [facility] Comment on above: Order Comment: Prior to first [facility] and every 2 weeks if baseline CR is within normal limits. Performed By: #### B CR #### [facility] (DEFAULT) [address] [address] Monocytes (Bld) [#/Vol] 0.39 10*3/uL Normal 0.22-0.87 [facility] Comment on above: Order Comment: Prior to first [facility] and every 2 weeks if baseline CR is within normal limits. Performed By: #### B CR #### [facility] (DEFAULT) [address] [address] Monocytes/100 WBC (Bld) 4.4 % Normal O [facility] Comment on above: Order Comment: Prior to first [facility] and every 2 weeks if baseline CR is within normal limits. Performed By: #### B CR #### [facility] (DEFAULT) [address] [address] Nucleated RBC 0.0 /100 WBC Normal <=0.2 [facility] Comment on above: Order Comment: Prior to first [facility] and every 2 weeks if baseline CR is within normal limits. Performed By: #### B CR #### [facility] (DEFAULT) [address] [address] Platelet mean volume (Bld) [Entitic vol] 9.7 fL Normal 8.5-12.2 [facility] Comment on above: Order Comment: Prior to first [facility] and every 2 weeks if baseline CR is within normal limits. Performed By: #### B CR #### [facility] (DEFAULT) [address] [address] Platelets (Bld) [#/Vol] 383 10*3/uL Normal 150-393 [facility] Comment on above: Order Comment: Prior to first [facility] and every 2 weeks if baseline CR is within normal limits. Performed By: #### B CR #### [facility] (DEFAULT) [address] [address] RBC (Bld) [#/Vol] 4.06 10*6/uL Normal 3.91-5.04 [facility] Comment on above: Order Comment: Prior to first [facility] and every 2 weeks if baseline CR is within normal limits. Performed By: #### B CR #### [facility] (DEFAULT) [address] [place] [address] RBC Distribution 14.5 % Normal 10.8-14.9 [facility] Comment on above: Order Comment: Prior to first [facility] and every 2 weeks if baseline CR is within normal limits. Performed By: #### B CR #### [facility] (DEFAULT) [address] [place] [address] Segs + Bands Auto 63.7 % Normal [facility] Comment on above: Order Comment: Prior to first [facility] and every 2 weeks if baseline CR is within normal limits. Performed By: #### B CR #### [facility] (DEFAULT) [address] [address] Segs + Bands,Absolute Auto 5.66 K/uL Normal 1.64-7.28 [facility] Comment on above: Order Comment: Prior to first [facility] and every 2 weeks if baseline CR is within normal limits. Performed By: #### B CR #### [facility] (DEFAULT) [address] [place] [address] WBC (Bld) [#/Vol] 8.88 10*3/uL Normal 3.99-11.19 [facility] Comment on above: Order Comment: Prior to first [facility] and every 2 weeks if baseline CR is within normal limits. Performed By: #### B CR #### [facility] (DEFAULT) [address] [place] [address] OCT/HRT MACULA OUon 02-14-20 21 OCT/HRT MAC[place]A OU Right Eye Quality was good. Findings include subretinal fluid. Interval change is better. Recommendation for management is to continue treatment. Left Eye Quality was good. Findings include subretinal fluid. Interval change is better. Recommendation for management is to continue treatment. Normal [facility] BUN CREAon 02-07-2021 Creatinine [Mass/Vol] 1.20 mg/dL Normal 0.50-1.20 [facility] Comment on above: Order Comment: Prior to first [facility] and every 2 weeks if baseline CR is within normal limits. Performed By: #### B CR #### [facility] (DEFAULT) [address] [address] EST GFR, 56 mL/min/1.73sqM Low >=60 [facility] Comment on above: Order Comment: Prior to first [facility] and every 2 weeks if baseline CR is within normal limits. Performed By: #### B CR #### [facility] (DEFAULT) [address] [place] [address] EST GFR,Non 46 mL/min/1.73sqM Low >=60 [facility] Comment on above: Order Comment: Prior to first [facility] and every 2 weeks if baseline CR is within normal limits. Performed By: #### B CR #### [facility] (DEFAULT) [address] [place] [address] Urea nitrogen [Mass/Vol] 21 mg/dL Normal 09-07 [facility] Comment on above: Order Comment: Prior to first [facility] and every 2 weeks if baseline CR is within normal limits. Performed By: #### B CR #### [facility] (DEFAULT) [address] [place] [address] Urea nitrogen/Creatinine [Mass ratio] 18 mg/mg Normal [facility] Comment on above: Order Comment: Prior to first [facility] and every 2 weeks if baseline CR is within normal limits. Performed By: #### B CR #### [facility] (DEFAULT) [address] [place] [address] CBC AND ELECTRONIC DIFFon 12 -22-2021 Basophils (Bld) [#/Vol] 0.05 10*3/uL Normal 0.00-0.15 [facility] Comment on above: Order Comment: Prior to first [facility] and then every 2 weeks.until results within normal limits. Collect weekly if baseline is abnormal. Performed By: #### L [id number] #### [facility] (DEFAULT) [address] [address] Basophils/100 WBC (Bld) 0.5 % Normal O [facility] Comment on above: Order Comment: Prior to first [facility] and then every 2 weeks.until results within normal limits. Collect weekly if baseline is abnormal. Performed By: #### L [id number] #### [facility] (DEFAULT) [address] [address] DIFF STATUS Electronic Differential Normal [facility] Comment on above: Order Comment: Prior to first [facility] and then every 2 weeks.until results within normal limits. Collect weekly if baseline is abnormal. Performed By: #### L [id number] #### [facility] (DEFAULT) [address] [address] Eosinophils (Bld) [#/Vol] 0.31 10*3/uL Normal 0.00-0.42 [facility] Comment on above: Order Comment: Prior to first [facility] and then every 2 weeks.until results within normal limits. Collect weekly if baseline is abnormal. Performed By: #### L [id number] #### [facility] (DEFAULT) [address] [address] Eosinophils/100 WBC (Bld) 3.3 % Normal [facility] Comment on above: Order Comment: Prior to first [facility] and then every 2 weeks.until results within normal limits. Collect weekly if baseline is abnormal. Performed By: #### L [id number] #### [facility] (DEFAULT) [address] [address] Hematocrit (Bld) [Volume fraction] 33.5 % Low 34.9-44.3 [facility] Comment on above: Order Comment: Prior to first [facility] and then every 2 weeks.until results within normal limits. Collect weekly if baseline is abnormal. Performed By: #### L [id number] #### [facility] (DEFAULT) [address] [address] Hemoglobin (Bld) [Mass/Vol] 10.5 g/dL Low 11.4-15.2 [facility] Comment on above: Order Comment: Prior to first [facility] and then every 2 weeks.until results within normal limits. Collect weekly if baseline is abnormal. Performed By: #### L [id number] #### [facility] (DEFAULT) [address] [address] Immature Grans % 0.2 % Normal [facility] Comment on above: Order Comment: Prior to first [facility] and then every 2 weeks.until results within normal limits. Collect weekly if baseline is abnormal. Performed By: #### L [id number] #### [facility] (DEFAULT) [address] [address] Immature Grans Absolute <0.04 Normal <=0.09 [facility] Comment on above: Order Comment: Prior to first [facility] and then every 2 weeks.until results within normal limits. Collect weekly if baseline is abnormal. Performed By: #### L [id number] #### [facility] (DEFAULT) [address] [address] Lymphocytes (Bld) [#/Vol] 2.84 10*3/uL Normal 1.16-3.51 [facility] Comment on above: Order Comment: Prior to first [facility] and then every 2 weeks.until results within normal limits. Collect weekly if baseline is abnormal. Performed By: #### L [id number] #### [facility] (DEFAULT) [address] [address] Lymphocytes/100 WBC (Bld) 30.6 % Normal [facility] Comment on above: Order Comment: Prior to first [facility] and then every 2 weeks.until results within normal limits. Collect weekly if baseline is abnormal. Performed By: #### L [id number] #### [facility] (DEFAULT) [address] [address] MCV (RBC) [Entitic vol] 85.7 fL Normal 79.6-97.7 [facility] Comment on above: Order Comment: Prior to first [facility] and then every 2 weeks.until results within normal limits. Collect weekly if baseline is abnormal. Performed By: #### L [id number] #### [facility] (DEFAULT) [address] [address] Mean Cell Hgb 26.9 pg Normal 25.9-33.9 [facility] Comment on above: Order Comment: Prior to first [facility] and then every 2 weeks.until results within normal limits. Collect weekly if baseline is abnormal. Performed By: #### L [id number] #### [facility] (DEFAULT) [address] [address] Mean Cell Hgb Conc 31.3 g/dL Low 31.4-35.9 [facility] Comment on above: Order Comment: Prior to first [facility] and then every 2 weeks.until results within normal limits. Collect weekly if baseline is abnormal. Performed By: #### L [id number] #### [facility] (DEFAULT) [address] [address] Monocytes (Bld) [#/Vol] 0.42 10*3/uL Normal 0.22-0.87 [facility] Comment on above: Order Comment: Prior to first [facility] and then every 2 weeks.until results within normal limits. Collect weekly if baseline is abnormal. Performed By: #### L [id number] #### [facility] (DEFAULT) [address] [address] Monocytes/100 WBC (Bld) 4.5 % Normal [facility] Comment on above: Order Comment: Prior to first [facility] and then every 2 weeks.until results within normal limits. Collect weekly if baseline is abnormal. Performed By: #### L [id number] #### [facility] (DEFAULT) [address] [address] Nucleated RBC 0.0 /100 WBC Normal <=0.2 [facility] Comment on above: Order Comment: Prior to first [facility] and then every 2 weeks.until results within normal limits. Collect weekly if baseline is abnormal. Performed By: #### L [id number] #### [facility] (DEFAULT) [address] [address] Platelet mean volume (Bld) [Entitic vol] 9.3 fL Normal 8.5-12.2 [facility] Comment on above: Order Comment: Prior to first [facility] and then every 2 weeks.until results within normal limits. Collect weekly if baseline is abnormal. Performed By: #### L [id number] #### [facility] (DEFAULT) [address] [address] Platelets (Bld) [#/Vol] 398 10*3/uL High 150-393 [facility] Comment on above: Order Comment: Prior to first [facility] and then every 2 weeks.until results within normal limits. Collect weekly if baseline is abnormal. Performed By: #### L [id number] #### [facility] (DEFAULT) [address] [address] RBC (Bld) [#/Vol] 3.91 10*6/uL Normal 3.91-5.04 [facility] Comment on above: Order Comment: Prior to first [facility] and then every 2 weeks.until results within normal limits. Collect weekly if baseline is abnormal. Performed By: #### L [id number] #### [facility] (DEFAULT) [address] [address] RBC Distribution 14.5 % Normal 10.8-14.9 [facility] Comment on above: Order Comment: Prior to first [facility] and then every 2 weeks.until results within normal limits. Collect weekly if baseline is abnormal. Performed By: #### L [id number] #### [facility] (DEFAULT) [address] [address] Segs + Bands Auto 60.9 % Normal [facility] Comment on above: Order Comment: Prior to first [facility] and then every 2 weeks.until results within normal limits. Collect weekly if baseline is abnormal. Performed By: #### L [id number] #### [facility] (DEFAULT) [address] [address] Segs + Bands,Absolute Auto 5.63 K/uL Normal 1.64-7.28 [facility] Comment on above: Order Comment: Prior to first [facility] and then every 2 weeks.until results within normal limits. Collect weekly if baseline is abnormal. Performed By: #### L [id number] #### [facility] (DEFAULT) [address] [address] WBC (Bld) [#/Vol] 9.27 10*3/uL Normal 3.99-11.19 [facility] Comment on above: Order Comment: Prior to first [facility] and then every 2 weeks.until results within normal limits. Collect weekly if baseline is abnormal. Performed By: #### L [id number] #### [facility] (DEFAULT) [address] [address] B HYDROXYBUTYRATEon 01-15-20 21 B HYDROXYBUTYRATE 0.08 MMOL/L Normal 0.02-0.27 [facility] Comment on above: Performed By: #### C MPF, BHB, ACBC #### Testing performed at [address] [address] CBCon 01-14-2021 ABSOLUTE BAS 0.0 10*3/uL Normal 0.0-0.2 [facility] Comment on above: Performed By: #### C MPF, BHB, ACBC #### Testing performed at [address] [address] ABSOLUTE EOS 0.20 10*3/uL Normal 0.0-0.7 [facility] Comment on above: Performed By: #### C MPF, BHB, ACBC #### Testing performed at [address] [address] ABSOLUTE NEUTROPHIL COUNT 4.9 10*3/uL Normal 1.4-6.5 [facility] Comment on above: Performed By: #### C MPF, BHB, ACBC #### Testing performed at [address] [address] Basophils/100 WBC (Bld) 0.4 % Normal 0.0-2.0 [facility] Comment on above: Performed By: #### C MPF, BHB, ACBC #### Testing performed at [address] [address] DTYPE AUTO DIFF Normal [facility] Comment on above: Performed By: #### C MPF, BHB, ACBC #### Testing performed at [address] [address] Eosinophils/100 WBC (Bld) 2.3 % Normal 0.0-11.0 [facility] Comment on above: Performed By: #### C MPF, BHB, ACBC #### Testing performed at [address] [address] Lymphocytes (Bld) [#/Vol] 2.10 10*3/uL Normal 1.2-3.4 [facility] Comment on above: Performed By: #### C MPF, BHB, ACBC #### Testing performed at [address] [address] Lymphocytes/100 WBC (Bld) 27.2 % Normal 20.0-55.0 [facility] Comment on above: Performed By: #### C MPF, BHB, ACBC #### Testing performed at [address] [address] Monocytes (Bld) [#/Vol] 0.6 10*3/uL Normal 0.0-0.7 [facility] Comment on above: Performed By: #### C MPF, BHB, ACBC #### Testing performed at [address] [address] Monocytes/100 WBC (Bld) 7.5 % Normal 0.0-10.0 [facility] Comment on above: Performed By: #### C MPF, BHB, ACBC #### Testing performed at [address] [place] [address] Neutrophils/100 WBC (Bld) 62.6 % Normal 37.0-75.0 [facility] Comment on above: Performed By: #### C MPF BHB, ACBC #### Testing performed at [address] [address] Erythrocyte distribution width (RBC) [Ratio] 15.6 % High 11.5-14.5 [facility] Comment on above: Performed By: #### C MPF, BHB, ACBC #### Testing performed at [address] [address] Hematocrit (Bld) [Volume fraction] 32.7 % Low 36.0-48.0 [facility] Comment on above: Performed By: #### C MPF BHB, ACBC #### Testing performed at [address] [address] Hemoglobin (Bld) [Mass/Vol] 10.8 g/dL Low 12.0-16.0 [facility] Comment on above: Performed By: #### C MPF, BHB, ACBC #### Testing performed at [address] [address] MCH (RBC) [Entitic mass] 27.3 pg Normal 26.0-35.0 [facility] Comment on above: Performed By: #### C MPF, BHB, ACBC #### Testing performed at [address] [address] MCHC (RBC) [Mass/Vol] 33.1 g/dL Normal 27.0-37.0 [facility] Comment on above: Performed By: #### C MPF, BHB, ACBC #### Testing performed at [address] [address] MCV (RBC) [Entitic vol] 82.5 fL Normal 80.0-100.0 [facility] Comment on above: Performed By: #### C MPF, BHB, ACBC #### Testing performed at [address] [address] Platelet mean volume (Bld) [Entitic vol] 7.1 fL Low 7.4-11.0 [facility] Comment on above: Performed By: #### C MPF, BHB, ACBC #### Testing performed at [address] [address] Platelets (Bld) [#/Vol] 359 10*3/uL Normal 130.0-400.0 [facility] Comment on above: Performed By: #### C MPF, BHB, ACBC #### Testing performed at [address] [address] RBC (Bld) [#/Vol] 3.96 10*6/uL Low 4.0-5.4 [facility] Comment on above: Performed By: #### C MPF, BHB, ACBC #### Testing performed at [address] [address] WBC (Bld) [#/Vol] 7.8 10*3/uL Normal 3.6-11.0 [facility] Comment on above: Performed By: #### C MPF, BHB, ACBC #### Testing performed at [address] [address] CMP FASTINGon 01-14-2021 A:G RATIO 1.0 RATIO Low 1.3-2.2 [facility] Comment on above: Performed By: #### C MPF, BHB, ACBC #### Testing performed at [address] [address] ALBUMIN 3.9 G/dl Normal 3.5-5.0 [facility] Comment on above: Performed By: #### C MPF, BHB, ACBC #### Testing performed at [address] [address] ALP [Catalytic activity/Vol] 117 U/L Normal 38-126 [facility] Comment on above: Performed By: #### C MPF, BHB, ACBC #### Testing performed at [address] [address] ALT [Catalytic activity/Vol] 24 U/L Normal 14-54 [facility] Comment on above: Performed By: #### C MPF, BHB, ACBC #### Testing performed at [address] [address] AST [Catalytic activity/Vol] 22 U/L Normal 15-41 [facility] Comment on above: Performed By: #### C MARQUITA CRUZB, ACBC #### Testing performed at [address] [address] Bilirubin [Mass/Vol] 0.4 mg/dL Normal 0.2-1.2 [facility] Comment on above: Performed By: #### C MPF BHB, ACBC #### Testing performed at [address] [address] Calcium [Mass/Vol] 9.0 mg/dL Normal 8.4-10.2 [facility] Comment on above: Performed By: #### C MARQUITA CRUZB, ACBC #### Testing performed at [address] [address] Chloride [Moles/Vol] 101 mmol/L Normal 98-107 [facility] Comment on above: Performed By: #### C MPMARQUITA GlasgowB, ACBC #### Testing performed at [address] [address] CO2 [Moles/Vol] 23 mmol/L Normal 22-30 [facility] Comment on above: Performed By: #### C MARQUITA CRUZB, ACBC #### Testing performed at [address] [address] Creatinine [Mass/Vol] 1.40 mg/dL High 0.52-1.04 [facility] Comment on above: Performed By: #### C MPF BHB, ACBC #### Testing performed at [address] [address] EST. GFR, 50 ml/min/1.73sq.m [facility] Comment on above: Performed By: #### C MPF BHB, ACBC #### Testing performed at [address] [address] EST. GFR,Non 41 ml/min/1.73sq.m [facility] Comment on above: Performed By: #### C MPF BHB, ACBC #### Testing performed at [address] [address] GFR Information Average GFR for 50-5 9 years old = 93. Normal [facility] Comment on above: Result Comment: [employer] [place] Kidney disease, GFR = <60. Kidney failure, GFR = <15. The GFR estimate is not adjusted for extreme body surface area or acute process, nor has it been validated for women or ethnic groups other than and . Performed By: #### C MPF BHB, ACBC #### Testing performed at [address] [address] Glucose [Mass/Vol] 457 mg/dL Critically high 70-100 [facility] Comment on above: Result Comment: NORMAL <100 mg/dL PREDIABETES 101-126 mg/dL DIABETES 126 mg/dL or higher Result called to read back by: Susan WOODY 01/13/2021 @ 22:34 by CHARLES Performed By: #### C MPF BHB, ACBC #### Testing performed at [address] [address] Potassium [Moles/Vol] 4.6 mmol/L Normal 3.5-5.1 [facility] Comment on above: Performed By: #### C ANTHONY BHB, ACBC #### Testing performed at [address] [address] Protein [Mass/Vol] 7.9 g/dL Normal 6.3-8.2 [facility] Comment on above: Performed By: #### C MPF BHB, ACBC #### Testing performed at [address] [address] Sodium [Moles/Vol] 134 mmol/L Low 136-145 [facility] Comment on above: Performed By: #### C MPF BHB, ACBC #### Testing performed at [address] [address] Urea nitrogen [Mass/Vol] 36 mg/dL High 7-20 [facility] Comment on above: Performed By: #### C MPF, BHB, ACBC #### Testing performed at [address] [address] POCT GLUCOSEon 01-14-2021 Glucose [Mass/Vol] 391 mg/dL High 70-100 [facility] [employer] [id number] Normal [facility] Glucose [Mass/Vol] 217 mg/dL High 70-100 [facility] [employer] [id number] Normal [facility] URINE MACROSCOPICon 01-15-20 Bilirubin Ql (U) Negative Normal NEGATIVE [facility] Comment on above: Performed By: #### U MAC, UMIC #### Testing performed at [address] [address] Clarity (U) CLEAR Normal CLEAR [facility] Comment on above: Performed By: #### U MAC, UMIC #### Testing performed at [address] [address] Color (U) YELLOW Normal YELLOW [facility] Comment on above: Performed By: #### U MAC, UMIC #### Testing performed at [address] [address] Glucose Ql (U) 500 mg/dl Abnormal NEGATIVE [facility] Comment on above: Performed By: #### U MAC, UMIC #### Testing performed at [address] [address] pH (U) 6.0 [pH] Normal 5.0-7.0 [facility] Comment on above: Performed By: #### U MAC, UMIC #### Testing performed at [address] [place] [address] URINE HEMOGLOBIN TRACE-INTACT Abnormal NEGATIVE [facility] Comment on above: Performed By: #### U MAC, UMIC #### Testing performed at [address] [place] [address] URINE KETONE Negative Normal NEGATIVE [facility] Comment on above: Performed By: #### U MAC, UMIC #### Testing performed at [address] [address] URINE LEUKOTEST Negative Normal NEGATIVE [facility] Comment on above: Performed By: #### U MAC, UMIC #### Testing performed at [address] [address] URINE NITRATES Negative Normal NEGATIVE [facility] Comment on above: Performed By: #### U MAC, UMIC #### Testing performed at [address] [address] URINE SPEC GRAVITY 1.015 Normal 1.010-1.025 [facility] Comment on above: Performed By: #### U MAC, UMIC #### Testing performed at [address] [address] URINE TOTAL PROTEIN Negative Normal NEGATIVE [facility] Comment on above: Performed By: #### U MAC, UMIC #### Testing performed at [address] [address] Urobilinogen Qn (U) 0.2 {Rikki'U}/dL Normal 0.2-1.0 [facility] Comment on above: Performed By: #### U MAC, UMIC #### [place] [address] URINE MICROSCOPICon 01-15-20 21 Bacteria LM.HPF (Urine sed) [#/Area] Negative Normal NEGATIVE [facility] Comment on above: Performed By: #### U MAC, UMIC #### Testing performed at [address] [address] CASTS NONE Normal NONE [facility] Comment on above: Performed By: #### U MAC, UMIC #### Testing performed at [place] [id number] CRYSTAL NONE Normal NONE [facility] Comment on above: Performed By: #### U MAC, UMIC #### Testing performed at [address] [address] Epithelial cells LM Ql (Urine sed) 1 TO 5 Normal [facility] Comment on above: Performed By: #### U MAC, UMIC #### Testing performed at [address] [address] Mucus Ql (Urine sed) Negative Normal NEGATIVE [facility] Comment on above: Performed By: #### U MAC, UMIC #### Testing performed at [address] [address] URINE COMMENT CULTURE CRITERIA NOT MET, NO CULTURE PERFORMED. Normal [facility] Comment on above: Performed By: #### U MAC, UMIC #### Testing performed at [address] [address] URINE RBC'S Negative Normal NEGATIVE [facility] Comment on above: Performed By: #### U MAC, UMIC #### Testing performed at [address] [address] URINE WBC'S Negative Normal NEGATIVE [facility] Comment on above: Performed By: #### U MAC, UMIC #### Testing performed at [address] [address] BUN CREAon 01-10-2021 Creatinine [Mass/Vol] 1.22 mg/dL High 0.50-1.20 [facility] Comment on above: Order Comment: Prior to first [facility] and every 2 weeks if baseline CR is within normal limits. Performed By: #### B CR #### [facility] (DEFAULT) [address] [address] EST GFR, 55 mL/min/1.73sqM Low >=60 [facility] Comment on above: Order Comment: Prior to first [facility] and every 2 weeks if baseline CR is within normal limits. Performed By: #### B CR #### [facility] (DEFAULT) [address] [address] EST GFR,Non 45 mL/min/1.73sqM Low >=60 [facility] Comment on above: Order Comment: Prior to first [facility] and every 2 weeks if baseline CR is within normal limits. Performed By: #### B CR #### [facility] (DEFAULT) [address] [address] Urea nitrogen [Mass/Vol] 20 mg/dL Normal - [facility] Comment on above: Order Comment: Prior to first [facility] and every 2 weeks if baseline CR is within normal limits. Performed By: #### B CR #### [facility] (DEFAULT) [address] [address] Urea nitrogen/Creatinine [Mass ratio] 16 mg/mg Normal [facility] Comment on above: Order Comment: Prior to first [facility] and every 2 weeks if baseline CR is within normal limits. Performed By: #### B CR #### [facility] (DEFAULT) [address] [address] CBC AND ELECTRONIC DIFFon Basophils (Bld) [#/Vol] 10*3/uL Normal 0.00-0.15 [facility] Comment on above: Order Comment: Prior to first [facility]fusion and then every 2 weeks.until results within normal limits. Collect weekly if baseline is abnormal. Performed By: #### L [id number] #### [facility] (DEFAULT) [address] [address] Basophils/100 WBC (Bld) 0.4 % Normal O [facility] Comment on above: Order Comment: Prior to first [facility]fusion and then every 2 weeks.until results within normal limits. Collect weekly if baseline is abnormal. Performed By: #### L [id number] #### [facility] (DEFAULT) [address] [address] DIFF STATUS Electronic Differential Normal [facility] Comment on above: Order Comment: Prior to first [facility]fusion and then every 2 weeks.until results within normal limits. Collect weekly if baseline is abnormal. Performed By: #### L [id number] #### [facility] (DEFAULT) [address] [address] Eosinophils (Bld) [#/Vol] 0.16 10*3/uL Normal 0.00-0.42 [facility] Comment on above: Order Comment: Prior to first [facility] Infusion and then every 2 weeks.until results within normal limits. Collect weekly if baseline is abnormal. Performed By: #### L [id number] #### [facility] (DEFAULT) [address] [address] Eosinophils/100 WBC (Bld) 2.1 % Normal [facility] Comment on above: Order Comment: Prior to first [employer] [facility]fusion and then every 2 weeks.until results within normal limits. Collect weekly if baseline is abnormal. Performed By: #### L [id number] #### [facility] (DEFAULT) [address] [address] Hematocrit (Bld) [Volume fraction] 32.0 % Low 34.9-44.3 [facility] Comment on above: Order Comment: Prior to first [employer] Infusion and then every 2 weeks.until results within normal limits. Collect weekly if baseline is abnormal. Performed By: #### L [id number] #### [facility] (DEFAULT) [address] [address] Hemoglobin (Bld) [Mass/Vol] 10.1 g/dL Low 11.4-15.2 [facility] Comment on above: Order Comment: Prior to first [facility] Infusion and then every 2 weeks.until results within normal limits. Collect weekly if baseline is abnormal. Performed By: #### L [id number] #### [facility] (DEFAULT) [address] [address] Immature Grans % 0.3 % Normal [facility] Comment on above: Order Comment: Prior to first [employer] Infusion and then every 2 weeks.until results within normal limits. Collect weekly if baseline is abnormal. Performed By: #### L [id number] #### [facility] (DEFAULT) [address] [place] [address] Immature Grans Absolute <0.04 Normal <=0.09 [facility] Comment on above: Order Comment: Prior to first [facility] Infusion and then every 2 weeks.until results within normal limits. Collect weekly if baseline is abnormal. Performed By: #### L [id number] #### U [facility] (DEFAULT) [address] [address] Lymphocytes (Bld) [#/Vol] 2.23 10*3/uL Normal 1.16-3.51 [facility] Comment on above: Order Comment: Prior to first [facility] Infusion and then every 2 weeks.until results within normal limits. Collect weekly if baseline is abnormal. Performed By: #### L [id number] #### [facility] (DEFAULT) [address] [address] Lymphocytes/100 WBC (Bld) 28.8 % Normal [facility] Comment on above: Order Comment: Prior to first [employer] Infusion and then every 2 weeks.until results within normal limits. Collect weekly if baseline is abnormal. Performed By: #### L [id number] #### [facility] (DEFAULT) [address] [address] MCV (RBC) [Entitic vol] 86.0 fL Normal 79.6-97.7 [facility] Comment on above: Order Comment: Prior to first [employer] Infusion and then every 2 weeks.until results within normal limits. Collect weekly if baseline is abnormal. Performed By: #### L [id number] #### [facility] (DEFAULT) [address] [address] Mean Cell Hgb 27.2 pg Normal 25.9-33.9 [facility] Comment on above: Order Comment: Prior to first [facility] Infusion and then every 2 weeks.until results within normal limits. Collect weekly if baseline is abnormal. Performed By: #### L [id number] #### [facility] (DEFAULT) [address] [address] Mean Cell Hgb Conc 31.6 g/dL Normal 31.4-35.9 [facility] Comment on above: Order Comment: Prior to first [employer] Infusion and then every 2 weeks.until results within normal limits. Collect weekly if baseline is abnormal. Performed By: #### L [id number] #### [facility] (DEFAULT) [address] [address] Monocytes (Bld) [#/Vol] 0.38 10*3/uL Normal 0.22-0.87 [facility] Comment on above: Order Comment: Prior to first [employer] Infusion and then every 2 weeks.until results within normal limits. Collect weekly if baseline is abnormal. Performed By: #### L [id number] #### [facility] (DEFAULT) [address] [address] Monocytes/100 WBC (Bld) 4.9 % Normal [facility] Comment on above: Order Comment: Prior to first [employer] Infusion and then every 2 weeks.until results within normal limits. Collect weekly if baseline is abnormal. Performed By: #### L [id number] #### U [facility] (DEFAULT) [address] [address] Nucleated RBC 0.0 /100 WBC Normal <=0.2 [facility] Comment on above: Order Comment: Prior to first [employer] Infusion and then every 2 weeks.until results within normal limits. Collect weekly if baseline is abnormal. Performed By: #### L [id number] #### U [facility] (DEFAULT) [address] [address] Platelet mean volume (Bld) [Entitic vol] 9.4 fL Normal 8.5-12.2 [facility] Comment on above: Order Comment: Prior to first [employer] Infusion and then every 2 weeks.until results within normal limits. Collect weekly if baseline is abnormal. Performed By: #### L [id number] #### [facility] (DEFAULT) [address] [address] Platelets (Bld) [#/Vol] 352 10*3/uL Normal 150-393 [facility] Comment on above: Order Comment: Prior to first [employer] Infusion and then every 2 weeks.until results within normal limits. Collect weekly if baseline is abnormal. Performed By: #### L [id number] #### [facility] (DEFAULT) [address] [address] RBC (Bld) [#/Vol] 3.72 10*6/uL Low 3.91-5.04 [facility] Comment on above: Order Comment: Prior to first [facility] Infusion and then every 2 weeks.until results within normal limits. Collect weekly if baseline is abnormal. Performed By: #### L [id number] #### [facility] (DEFAULT) [address] [address] RBC Distribution 15.3 % High 10.8-14.9 [facility] Comment on above: Order Comment: Prior to first [employer] Infusion and then every 2 weeks.until results within normal limits. Collect weekly if baseline is abnormal. Performed By: #### L [id number] #### U [facility] (DEFAULT) [address] [address] Segs + Bands Auto 63.5 % Normal [facility] Comment on above: Order Comment: Prior to first [employer] Infusion and then every 2 weeks.until results within normal limits. Collect weekly if baseline is abnormal. Performed By: #### L [id number] #### [facility] (DEFAULT) [address] [address] Segs + Bands,Absolute Auto 4.93 K/uL Normal 1.64-7.28 [facility] Comment on above: Order Comment: Prior to first [facility] Infusion and then every 2 weeks.until results within normal limits. Collect weekly if baseline is abnormal. Performed By: #### L [id number] #### [facility] (DEFAULT) [address] [address] WBC (Bld) [#/Vol] 7.75 10*3/uL Normal 3.99-11.19 [facility] Comment on above: Order Comment: Prior to first [facility] Infusion and then every 2 weeks.until results within normal limits. Collect weekly if baseline is abnormal. Performed By: #### L [id number] #### U [facility] (DEFAULT) [address] [address] BUN CREAon 12-27-2020 Creatinine [Mass/Vol] 1.10 mg/dL Normal 0.50-1.20 [facility] Comment on above: Order Comment: Prior to first [facility] Infusion and every 2 weeks if baseline CR is within normal limits. Performed By: #### B CR #### [facility] (DEFAULT) [address] [address] EST GFR, >=60 Normal >=60 [facility] Comment on above: Order Comment: Prior to first [facility] Infusion and every 2 weeks if baseline CR is within normal limits. Performed By: #### B CR #### [facility] (DEFAULT) [address] [place] [address] EST GFR,Non 51 mL/min/1.73sqM Low >=60 [facility] Comment on above: Order Comment: Prior to first [facility] Infusion and every 2 weeks if baseline CR is within normal limits. Performed By: #### B CR #### [facility] (DEFAULT) [address] [place] [address] Urea nitrogen [Mass/Vol] 26 mg/dL High 7- [facility] Comment on above: Order Comment: Prior to first [facility] Infusion and every 2 weeks if baseline CR is within normal limits. Performed By: #### B CR #### [facility] (DEFAULT) [address] [address] Urea nitrogen/Creatinine [Mass ratio] 24 mg/mg Normal [facility] Comment on above: Order Comment: Prior to first [facility] Infusion and every 2 weeks if baseline CR is within normal limits. Performed By: #### B CR #### [facility] (DEFAULT) [address] [address] CBC AND ELECTRONIC DIFFon Basophils (Bld) [#/Vol] 10*3/uL Normal 0.00-0.15 [facility] Comment on above: Order Comment: Prior to first [facility] Infusion and every 2 weeks if baseline CR is within normal limits. Performed By: #### B CR #### [facility] (DEFAULT) [address] [address] Basophils/100 WBC (Bld) 0.3 % Normal O [facility] Comment on above: Order Comment: Prior to first [employer] Infusion and every 2 weeks if baseline CR is within normal limits. Performed By: #### B CR #### [facility] (DEFAULT) [address] [address] DIFF STATUS Electronic Differential Normal [facility] Comment on above: Order Comment: Prior to first [employer] Infusion and every 2 weeks if baseline CR is within normal limits. Performed By: #### B CR #### [facility] (DEFAULT) [address] [address] Eosinophils (Bld) [#/Vol] 0.20 10*3/uL Normal 0.00-0.42 [facility] Comment on above: Order Comment: Prior to first [employer] Infusion and every 2 weeks if baseline CR is within normal limits. Performed By: #### B CR #### [facility] (DEFAULT) [address] [address] Eosinophils/100 WBC (Bld) 2.0 % Normal [facility] Comment on above: Order Comment: Prior to first [employer] Infusion and every 2 weeks if baseline CR is within normal limits. Performed By: #### B CR #### [facility] (DEFAULT) [address] [address] Hematocrit (Bld) [Volume fraction] 31.0 % Low 34.9-44.3 [facility] Comment on above: Order Comment: Prior to first [employer] Infusion and every 2 weeks if baseline CR is within normal limits. Performed By: #### B CR #### [facility] (DEFAULT) [address] [address] Hemoglobin (Bld) [Mass/Vol] 10.0 g/dL Low 11.4-15.2 [facility] Comment on above: Order Comment: Prior to first [employer] Infusion and every 2 weeks if baseline CR is within normal limits. Performed By: #### B CR #### [facility] (DEFAULT) [address] [address] Immature Grans % 0.2 % Normal [facility] Comment on above: Order Comment: Prior to first [employer] Infusion and every 2 weeks if baseline CR is within normal limits. Performed By: #### B CR #### [facility] (DEFAULT) [address] [address] Immature Grans Absolute <0.04 Normal <=0.09 [facility] Comment on above: Order Comment: Prior to first [employer] Infusion and every 2 weeks if baseline CR is within normal limits. Performed By: #### B CR #### [facility] (DEFAULT) [address] [address] Lymphocytes (Bld) [#/Vol] 2.96 10*3/uL Normal 1.16-3.51 [facility] Comment on above: Order Comment: Prior to first [facility] Infusion and every 2 weeks if baseline CR is within normal limits. Performed By: #### B CR #### [facility] (DEFAULT) [address] [place] [address] Lymphocytes/100 WBC (Bld) 29.9 % Normal [facility] Comment on above: Order Comment: Prior to first [facility] Infusion and every 2 weeks if baseline CR is within normal limits. Performed By: #### B CR #### [facility] (DEFAULT) [address] [address] MCV (RBC) [Entitic vol] 84.9 fL Normal 79.6-97.7 [facility] Comment on above: Order Comment: Prior to first [facility]ex Infusion and every 2 weeks if baseline CR is within normal limits. Performed By: #### B CR #### [facility] (DEFAULT) [address] [address] Mean Cell Hgb 27.4 pg Normal 25.9-33.9 [facility] Comment on above: Order Comment: Prior to first [facility] Infusion and every 2 weeks if baseline CR is within normal limits. Performed By: #### B CR #### [facility] (DEFAULT) [address] [address] Mean Cell Hgb Conc 32.3 g/dL Normal 31.4-35.9 [facility] Comment on above: Order Comment: Prior to first [facility]ex Infusion and every 2 weeks if baseline CR is within normal limits. Performed By: #### B CR #### [facility] (DEFAULT) [address] [address] Monocytes (Bld) [#/Vol] 0.50 10*3/uL Normal 0.22-0.87 [facility] Comment on above: Order Comment: Prior to first Gamunex Infusion and every 2 weeks if baseline CR is within normal limits. Performed By: #### B CR #### [facility] (DEFAULT) [address] [address] Monocytes/100 WBC (Bld) 5.1 % Normal O [facility] Comment on above: Order Comment: Prior to first Gamunex Infusion and every 2 weeks if baseline CR is within normal limits. Performed By: #### B CR #### [facility] (DEFAULT) [address] [address] Nucleated RBC 0.0 /100 WBC Normal <=0.2 [facility] Comment on above: Order Comment: Prior to first Gamunex Infusion and every 2 weeks if baseline CR is within normal limits. Performed By: #### B CR #### [facility] (DEFAULT) [address] [address] Platelet mean volume (Bld) [Entitic vol] 9.2 fL Normal 8.5-12.2 [facility] Comment on above: Order Comment: Prior to first Gamunex Infusion and every 2 weeks if baseline CR is within normal limits. Performed By: #### B CR #### [facility] (DEFAULT) [address] [address] Platelets (Bld) [#/Vol] 372 10*3/uL Normal 150-393 [facility] Comment on above: Order Comment: Prior to first Gamunex Infusion and every 2 weeks if baseline CR is within normal limits. Performed By: #### B CR #### [facility] (DEFAULT) [address] [address] RBC (Bld) [#/Vol] 3.65 10*6/uL Low 3.91-5.04 [facility] Comment on above: Order Comment: Prior to first Gamunex Infusion and every 2 weeks if baseline CR is within normal limits. Performed By: #### B CR #### [facility] (DEFAULT) [address] [address] RBC Distribution 14.7 % Normal 10.8-14.9 [facility] Comment on above: Order Comment: Prior to first Gamunex Infusion and every 2 weeks if baseline CR is within normal limits. Performed By: #### B CR #### [facility] (DEFAULT) [address] [address] Segs + Bands Auto 62.5 % Normal [facility] Comment on above: Order Comment: Prior to first Gamunex Infusion and every 2 weeks if baseline CR is within normal limits. Performed By: #### B CR #### [facility] (DEFAULT) [address] [address] Segs + Bands,Absolute Auto 6.18 K/uL Normal 1.64-7.28 [facility] Comment on above: Order Comment: Prior to first Gamunex Infusion and every 2 weeks if baseline CR is within normal limits. Performed By: #### B CR #### [facility] (DEFAULT) [address] [address] WBC (Bld) [#/Vol] 9.89 10*3/uL Normal 3.99-11.19 [facility] Comment on above: Order Comment: Prior to first Gamunex Infusion and every 2 weeks if baseline CR is within normal limits. Performed By: #### B CR #### [facility] (DEFAULT) [address] [address] OCT/HRT MACULA OUon 12-28-19 21 OCT/HRT [place] OU Right Eye Quality was good. Findings include subretinal fluid. Interval change is better. Recommendation for management is to continue treatment. Left Eye Quality was good. Findings include subretinal fluid. Interval change is better. Recommendation for management is to continue treatment. Normal [facility] Apply dressingon 12-19-2020 Applied dressing [facility] th Apply dressingOrdered By: St ester Aguirre on 12-19-2020 [facility] BUN CREAon 12-13-2020 Creatinine [Mass/Vol] 0.99 mg/dL Normal 0.50-1.20 [facility] Comment on above: Order Comment: Prior to first Gamunex Infusion and every 2 weeks if baseline CR is within normal limits. Performed By: #### B CR #### [facility] (DEFAULT) [address] [address] EST GFR, >=60 Normal >=60 [facility] Comment on above: Order Comment: Prior to first Gamunex Infusion and every 2 weeks if baseline CR is within normal limits. Performed By: #### B CR #### [facility] (DEFAULT) [address] [address] EST GFR,Non 58 mL/min/1.73sqM Low >=60 [facility] Comment on above: Order Comment: Prior to first Gamunex Infusion and every 2 weeks if baseline CR is within normal limits. Performed By: #### B CR #### [facility] (DEFAULT) [address] [address] Urea nitrogen [Mass/Vol] 25 mg/dL High 7-22 [facility] Comment on above: Order Comment: Prior to first Gamunex Infusion and every 2 weeks if baseline CR is within normal limits. Performed By: #### B CR #### [facility] (DEFAULT) [address] [address] Urea nitrogen/Creatinine [Mass ratio] 25 mg/mg Normal [facility] Comment on above: Order Comment: Prior to first Gamunex Infusion and every 2 weeks if baseline CR is within normal limits. Performed By: #### B CR #### [facility] (DEFAULT) [address] [address] CBC AND ELECTRONIC DIFFon Basophils (Bld) [#/Vol] 0.04 10*3/uL Normal 0.00-0.15 [facility] Comment on above: Order Comment: Prior to first Gamunex Infusion and every 2 weeks if baseline CR is within normal limits. Performed By: #### B CR #### [facility] (DEFAULT) [address] [address] Basophils/100 WBC (Bld) 0.4 % Normal O [facility] Comment on above: Order Comment: Prior to first Gamunex Infusion and every 2 weeks if baseline CR is within normal limits. Performed By: #### B CR #### [facility] (DEFAULT) [address] [place] [address] DIFF STATUS Electronic Differential Normal [facility] Comment on above: Order Comment: Prior to first Gamunex Infusion and every 2 weeks if baseline CR is within normal limits. Performed By: #### B CR #### [facility] (DEFAULT) [address] [place] [address] Eosinophils (Bld) [#/Vol] 0.13 10*3/uL Normal 0.00-0.42 [facility] Comment on above: Order Comment: Prior to first Gamunex Infusion and every 2 weeks if baseline CR is within normal limits. Performed By: #### B CR #### [facility] (DEFAULT) [address] [place] [address] Eosinophils/100 WBC (Bld) 1.4 % Normal [facility] Comment on above: Order Comment: Prior to first Gamunex Infusion and every 2 weeks if baseline CR is within normal limits. Performed By: #### B CR #### [facility] (DEFAULT) [address] [place] [address] Hematocrit (Bld) [Volume fraction] 33.6 % Low 34.9-44.3 [facility] Comment on above: Order Comment: Prior to first Gamunex Infusion and every 2 weeks if baseline CR is within normal limits. Performed By: #### B CR #### [facility] (DEFAULT) [address] [place] [address] Hemoglobin (Bld) [Mass/Vol] 10.6 g/dL Low 11.4-15.2 [facility] Comment on above: Order Comment: Prior to first Gamunex Infusion and every 2 weeks if baseline CR is within normal limits. Performed By: #### B CR #### [facility] (DEFAULT) [address] [address] Immature Grans % 0.2 % Normal [facility] Comment on above: Order Comment: Prior to first Gamunex Infusion and every 2 weeks if baseline CR is within normal limits. Performed By: #### B CR #### [facility] (DEFAULT) [address] [address] Immature Grans Absolute <0.04 Normal <=0.09 O [facility] Comment on above: Order Comment: Prior to first Gamunex Infusion and every 2 weeks if baseline CR is within normal limits. Performed By: #### B CR #### [facility] (DEFAULT) [address] [address] Lymphocytes (Bld) [#/Vol] 2.53 10*3/uL Normal 1.16-3.51 [facility] Comment on above: Order Comment: Prior to first Gamunex Infusion and every 2 weeks if baseline CR is within normal limits. Performed By: #### B CR #### [facility] (DEFAULT) [address] [address] Lymphocytes/100 WBC (Bld) 27.2 % Normal [facility] Comment on above: Order Comment: Prior to first Gamunex Infusion and every 2 weeks if baseline CR is within normal limits. Performed By: #### B CR #### [facility] (DEFAULT) [address] [address] MCV (RBC) [Entitic vol] 86.4 fL Normal 79.6-97.7 [facility] Comment on above: Order Comment: Prior to first Gamunex Infusion and every 2 weeks if baseline CR is within normal limits. Performed By: #### B CR #### [facility] (DEFAULT) [address] [address] Mean Cell Hgb 27.2 pg Normal 25.9-33.9 [facility] Comment on above: Order Comment: Prior to first Gamunex Infusion and every 2 weeks if baseline CR is within normal limits. Performed By: #### B CR #### [facility] (DEFAULT) [address] [address] Mean Cell Hgb Conc 31.5 g/dL Normal 31.4-35.9 [facility] Comment on above: Order Comment: Prior to first Gamunex Infusion and every 2 weeks if baseline CR is within normal limits. Performed By: #### B CR #### [facility] (DEFAULT) [address] [address] Monocytes (Bld) [#/Vol] 0.60 10*3/uL Normal 0.22-0.87 [facility] Comment on above: Order Comment: Prior to first Gamunex Infusion and every 2 weeks if baseline CR is within normal limits. Performed By: #### B CR #### [facility] (DEFAULT) [address] [address] Monocytes/100 WBC (Bld) 6.4 % Normal O [facility] Comment on above: Order Comment: Prior to first Gamunex Infusion and every 2 weeks if baseline CR is within normal limits. Performed By: #### B CR #### [facility] (DEFAULT) [address] [address] Nucleated RBC 0.0 /100 WBC Normal <=0.2 [facility] Comment on above: Order Comment: Prior to first Gamunex Infusion and every 2 weeks if baseline CR is within normal limits. Performed By: #### B CR #### [facility] (DEFAULT) [address] [address] Platelet mean volume (Bld) [Entitic vol] 9.5 fL Normal 8.5-12.2 [facility] Comment on above: Order Comment: Prior to first Gamunex Infusion and every 2 weeks if baseline CR is within normal limits. Performed By: #### B CR #### [facility] (DEFAULT) [address] [address] Platelets (Bld) [#/Vol] 365 10*3/uL Normal 150-393 [facility] Comment on above: Order Comment: Prior to first Gamunex Infusion and every 2 weeks if baseline CR is within normal limits. Performed By: #### B CR #### [facility] (DEFAULT) [address] [address] RBC (Bld) [#/Vol] 3.89 10*6/uL Low 3.91-5.04 [facility] Comment on above: Order Comment: Prior to first Gamunex Infusion and every 2 weeks if baseline CR is within normal limits. Performed By: #### B CR #### [facility] (DEFAULT) [address] [address] RBC Distribution 14.5 % Normal 10.8-14.9 [facility] Comment on above: Order Comment: Prior to first Gamunex Infusion and every 2 weeks if baseline CR is within normal limits. Performed By: #### B CR #### [facility] (DEFAULT) [address] [address] Segs + Bands Auto 64.4 % Normal [facility] Comment on above: Order Comment: Prior to first Gamunex Infusion and every 2 weeks if baseline CR is within normal limits. Performed By: #### B CR #### [facility] (DEFAULT) [address] [address] Segs + Bands,Absolute Auto 5.99 K/uL Normal 1.64-7.28 [facility] Comment on above: Order Comment: Prior to first Gamunex Infusion and every 2 weeks if baseline CR is within normal limits. Performed By: #### B CR #### [facility] (DEFAULT) [address] [address] WBC (Bld) [#/Vol] 9.31 10*3/uL Normal 3.99-11.19 [facility] Comment on above: Order Comment: Prior to first Gamunex Infusion and every 2 weeks if baseline CR is within normal limits. Performed By: #### B CR #### [facility] (DEFAULT) [address] [address] ESR Westergren method (Bld) [Velocity]Ordered By: Terence Martinez on 10-17-2020 ESR (Bld) [Velocity] 64 mm/h [facility] Interpretation and review of laboratory results Abnormal [facility] OCT OPTIC NERVE OUon 021 [facility] Radiology Study observation (narrative) [facility] BUN CREAon 10-03-2020 Creatinine [Mass/Vol] 1.13 mg/dL 0.50 - 1.20 mg/dL [facility] GFR/1.73 sq M.predicted MDRD (S/P/Bld) [Vol rate/Area] 50 mL/min/{1.73_m2} Low >=60 mL/min/1.73 sqM [facility] GFR/1.73 sq M.predicted MDRD (S/P/Bld) [Vol rate/Area] mL/min/{1.73_m2} >=60 mL/min/1.73 sqM [facility] Interpretation and review of laboratory results Abnormal [facility] Urea nitrogen [Mass/Vol] 20 mg/dL 7 - 22 mg/dL [facility] Urea nitrogen/Creatinine [Mass ratio] 18 mg/mg [facility] CBC AND ELECTRONIC DIFFon Basophils (Bld) [#/Vol] 10*3/uL 0.00 - 0.15 K/uL [facility] Basophils/100 WBC (Bld) 0.3 % O [facility] DIFF STATUS Electronic Differential [facility] Eosinophils (Bld) [#/Vol] 0.16 10*3/uL 0.00 - 0.42 K/uL [facility] Eosinophils/100 WBC (Bld) 2.1 % [facility] Erythrocyte distribution width (RBC) [Ratio] 14.0 % 10.8 - 14.9 % [facility] Hematocrit (Bld) [Volume fraction] 33.7 % Low 34.9 - 44.3 % [facility] Hemoglobin (Bld) [Mass/Vol] 10.3 g/dL Low 11.4 - 15.2 g/dL [facility] Immature granulocytes (Bld) [#/Vol] 10*3/uL <=0.09 K/uL [facility] Immature granulocytes/100 WBC (Bld) 0.3 % [facility] Interpretation and review of laboratory results Abnormal [facility] Lymphocytes (Bld) [#/Vol] 2.21 10*3/uL 1.16 - 3.51 K/uL [facility] Lymphocytes/100 WBC (Bld) 29.3 % [facility] MCH (RBC) [Entitic mass] 27.5 pg 25.9 - 33.9 pg [facility] MCHC (RBC) [Mass/Vol] 30.6 g/dL Low 31.4 - 35.9 g/dL [facility] MCV (RBC) [Entitic vol] 90.1 fL 79.6 - 97.7 fL [facility] Monocytes (Bld) [#/Vol] 0.46 10*3/uL 0.22 - 0.87 K/uL [facility] Monocytes/100 WBC (Bld) 6.1 % [facility] Neutrophils (Bld) [#/Vol] 4.66 10*3/uL 1.64 - 7.28 K/uL [facility] Nucleated RBC/100 WBC (Bld) [Ratio] 0.0 % <=0.2 /100 WBC [facility] Platelet mean volume (Bld) [Entitic vol] 9.5 fL 8.5 - 12.2 fL [facility] Platelets (Bld) [#/Vol] 357 10*3/uL 150 - 393 K/uL [facility] RBC (Bld) [#/Vol] 3.74 10*6/uL Low [facility] Segmented neutrophils/100 WBC (Bld) 61.9 % [facility] WBC (Bld) [#/Vol] 7.53 10*3/uL 3.99 - 11.19 K/uL [facility] XR MYELOMA SURVEYon 08-10-20 21 IMPRESSION: No discrete lytic lesions or pathologic fractures. 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 TECHNIQUE: Lateral views of the skull, cervical, thoracic and lumbar spine, AP chest and pelvis and frontal views of the upper and lower extremities were obtained. FINDINGS: Lateral Skull: No definite lesion identified. Lateral Cervical Spine: Cervical spine is seen through C5. No compression fractures within visualized cervical spine. Lateral Thoracic Spine: No compression fracture or spondylolisthesis. Multilevel flowing syndesmophytes suggestive of dish. Lateral Lumbar Spine: No compression fracture or spondylolisthesis. Digits related findings. AP Humeri: No dominant lesion is identified. Postsurgical changes suggestive of previous left rotator cuff repair. Degenerative changes at bilateral acromioclavicular joints. AP Forearms: No dominant lesion is identified. AP Pelvis: Bowel gas shadows. No discrete lytic lesions. 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 AP Femora: No dominant lesion is identified. AP TibiaFibula: No dominant lesion is identified. AP Chest: No obvious displaced rib fracture. 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 TECHNIQUE: Lateral views of the skull, cervical, thoracic and lumbar spine, AP chest and pelvis and frontal views of the upper and lower extremities were obtained. FINDINGS: Lateral Skull: No definite lesion identified. Lateral Cervical Spine: Cervical spine is seen through C5. No compression fractures within visualized cervical spine. Lateral Thoracic Spine: No compression fracture or spondylolisthesis. Multilevel flowing syndesmophytes suggestive of dish. Lateral Lumbar Spine: No compression fracture or spondylolisthesis. Digits related findings. AP Humeri: No dominant lesion is identified. Postsurgical changes suggestive of previous left rotator cuff repair. Degenerative changes at bilateral acromioclavicular joints. AP Forearms: No dominant lesion is identified. AP Pelvis: Bowel gas shadows. No discrete lytic lesions. 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 AP Femora: No dominant lesion is identified. AP TibiaFibula: No dominant lesion is identified. AP Chest: No obvious displaced rib fracture. IMPRESSION IMPRESSION: No discrete lytic lesions or pathologic fractures. [facility] Radiology Study observation (narrative) [facility] XR MYELOMA SURVEYOrdered By: Ira Gonzalez on 09-26-2020 [facility] Work Phone: BUN CREAon 09-21-2020 Creatinine [Mass/Vol] 1.19 mg/dL 0.50 - 1.20 mg/dL [facility] GFR/1.73 sq M.predicted MDRD (S/P/Bld) [Vol rate/Area] 47 mL/min/{1.73_m2} Low >=60 mL/min/1.73 sqM [facility] GFR/1.73 sq M.predicted MDRD (S/P/Bld) [Vol rate/Area] 57 mL/min/{1.73_m2} Low >=60 mL/min/1.73 sqM [facility] Interpretation and review of laboratory results Abnormal [facility] Urea nitrogen [Mass/Vol] 26 mg/dL High 7 - 22 mg/dL [facility] Urea nitrogen/Creatinine [Mass ratio] 22 mg/mg [facility] CBC AND ELECTRONIC DIFFon Basophils (Bld) [#/Vol] 0.05 10*3/uL 0.00 - 0.15 K/uL [facility] Basophils/100 WBC (Bld) 0.6 % O [facility] DIFF STATUS Electronic Differential [facility] Eosinophils (Bld) [#/Vol] 0.24 10*3/uL 0.00 - 0.42 K/uL [facility] Eosinophils/100 WBC (Bld) 2.8 % [facility] Erythrocyte distribution width (RBC) [Ratio] 13.9 % 10.8 - 14.9 % [facility] Hematocrit (Bld) [Volume fraction] 33.5 % Low 34.9 - 44.3 % [facility] Hemoglobin (Bld) [Mass/Vol] 10.7 g/dL Low 11.4 - 15.2 g/dL [facility] Immature granulocytes (Bld) [#/Vol] 10*3/uL <=0.09 K/uL [facility] Immature granulocytes/100 WBC (Bld) 0.2 % [facility] Interpretation and review of laboratory results Abnormal [facility] Lymphocytes (Bld) [#/Vol] 2.63 10*3/uL 1.16 - 3.51 K/uL [facility] Lymphocytes/100 WBC (Bld) 30.6 % [facility] MCH (RBC) [Entitic mass] 28.1 pg 25.9 - 33.9 pg [facility] MCHC (RBC) [Mass/Vol] 31.9 g/dL 31.4 - 35.9 g/dL [facility] MCV (RBC) [Entitic vol] 87.9 fL 79.6 - 97.7 fL [facility] Monocytes (Bld) [#/Vol] 0.50 10*3/uL 0.22 - 0.87 K/uL [facility] Monocytes/100 WBC (Bld) 5.8 % [facility] Neutrophils (Bld) [#/Vol] 5.15 10*3/uL 1.64 - 7.28 K/uL [facility] Nucleated RBC/100 WBC (Bld) [Ratio] 0.0 % <=0.2 /100 WBC [facility] Platelet mean volume (Bld) [Entitic vol] 9.2 fL 8.5 - 12.2 fL [facility] Platelets (Bld) [#/Vol] 377 10*3/uL 150 - 393 K/uL [facility] RBC (Bld) [#/Vol] 3.81 10*6/uL Low [facility] Segmented neutrophils/100 WBC (Bld) 60.0 % [facility] WBC (Bld) [#/Vol] 8.59 10*3/uL 3.99 - 11.19 K/uL [facility] CBC(NO DIFF)on 09-01-2020 Erythrocyte distribution width (RBC) [Ratio] 15.0 % High 11.5-14.5 [facility] Comment on above: Performed By: #### H EMOG, CMPF, LIP2, RTSH, T42 #### [place] [address] Hematocrit (Bld) [Volume fraction] 39.9 % Normal 36.0-48.0 [facility] Comment on above: Performed By: #### H EMOG, CMPF, LIP2, RTSH, T42 #### [place] [address] Hemoglobin (Bld) [Mass/Vol] 13.3 g/dL Normal 12.0-16.0 [facility] Comment on above: Performed By: #### H EMOG, CMPF, LIP2, RTSH, T42 #### [place] [address] MCH (RBC) [Entitic mass] 28.3 pg Normal 26.0-35.0 [facility] Comment on above: Performed By: #### H EMOG, CMPF, LIP2, RTSH, T42 #### [place] [address] MCHC (RBC) [Mass/Vol] 33.4 g/dL Normal 27.0-37.0 [facility] Comment on above: Performed By: #### H EMOG, CMPF, LIP2, RTSH, T42 #### [place] [address] MCV (RBC) [Entitic vol] 84.7 fL Normal 80.0-100.0 [facility] Comment on above: Performed By: #### H EMOG, CMPF, LIP2, RTSH, T42 #### [place] [address] Platelet mean volume (Bld) [Entitic vol] 6.9 fL Low 7.4-11.0 [facility] Comment on above: Result Comment: Test ing performed at [place] [address] Performed By: #### H EMOG, CMPF, LIP2, RTSH, T42 #### [place] [address] Platelets (Bld) [#/Vol] 275 10*3/uL Normal 130.0-400.0 [facility] Comment on above: Performed By: #### H EMOG, CMPF, LIP2, RTSH, T42 #### [place] [address] RBC (Bld) [#/Vol] 4.72 10*6/uL Normal 4.0-5.4 [facility] [facility] Comment on above: Performed By: #### H EMOG, CMPF, LIP2, RTSH, T42 #### [place] [address] WBC (Bld) [#/Vol] 6.7 10*3/uL Normal 3.6-11.0 [facility] Comment on above: Performed By: #### H EMOG, CMPF, LIP2, RTSH, T42 #### [place] [address] CMP FASTINGon 09-01-2020 A:G RATIO 1.2 RATIO Low 1.3-2.2 [facility] Comment on above: Performed By: #### H EMOG, CMPF, LIP2, RTSH, T42 #### [place] [address] ALBUMIN 4.1 G/dl Normal 3.5-5.0 [facility] Comment on above: Performed By: #### H EMOG, CMPF, LIP2, RTSH, T42 #### Testing performed at [place] [id number] ALP [Catalytic activity/Vol] 103 U/L Normal 38-126 [facility] Comment on above: Performed By: #### H EMOG, CMPF, LIP2, RTSH, T42 #### Testing performed at [place] [id number] ALT [Catalytic activity/Vol] 17 U/L Normal <35 [facility] Comment on above: Performed By: #### H EMOG, CMPF, LIP2, RTSH, T42 #### Testing performed at [place] [id number] AST [Catalytic activity/Vol] 23 U/L Normal 14-36 [facility] Comment on above: Performed By: #### H EMOG, CMPF, LIP2, RTSH, T42 #### Testing performed at [address] [address] Bilirubin [Mass/Vol] 0.1 mg/dL Low 0.2-1.3 [facility] Comment on above: Performed By: #### H EMOG, CMPF, LIP2, RTSH, T42 #### Testing performed at [place] [id number] Calcium [Mass/Vol] 9.2 mg/dL Normal 8.4-10.2 [facility] Comment on above: Performed By: #### H EMOG, CMPF, LIP2, RTSH, T42 #### Testing performed at [address] [address] Chloride [Moles/Vol] 108 mmol/L High 98-107 [facility] Comment on above: Result Comment: Vasyl hickman note: Triglyceride levels of 600mg/dL or higher may positively bias chloride results by approximately 2.1 mmol Performed By: #### H EMOG, CMPF, LIP2, RTSH, T42 #### [place] [address] CO2 [Moles/Vol] 23 mmol/L Normal 22-[address] [facility] Comment on above: Performed By: #### H EMOG, CMPF, LIP2, RTSH, T42 #### [place] [address] Creatinine [Mass/Vol] 1.00 mg/dL Normal 0.7-1.2 [facility] Comment on above: Performed By: #### H EMOG, CMPF, LIP2, RTSH, T42 #### [place] [address] EST. GFR, >60 Normal [facility] Comment on above: Performed By: #### H EMOG, CMPF, LIP2, RTSH, T42 #### [place] [address] EST. GFR,Non >60 Normal [facility] Comment on above: Performed By: #### H EMOG, CMPF, LIP2, RTSH, T42 #### [place] [address] GFR Information Average GFR for 50-5 9 years old = 93. Normal [facility] Comment on above: Result Comment: [employer] Kidney disease, GFR = <60. Kidney failure, GFR = <15. The GFR estimate is not adjusted for extreme body surface area or acute process, nor has it been validated for women or ethnic groups other than and . Testing performed at [place] [address] Performed By: #### H EMOG, CMPF, LIP2, RTSH, T42 #### [place] [address] Glucose [Mass/Vol] 193 mg/dL High 70-100 [facility] Comment on above: Result Comment: NORMAL <100 mg/dL PREDIABETES 101-126 mg/dL DIABETES 126 mg/dL or higher Performed By: #### H EMOG, CMPF, LIP2, RTSH, T42 #### Testing performed at [place] [id number] Potassium [Moles/Vol] 5.4 mmol/L High 3.5-5.1 [facility] Comment on above: Performed By: #### H EMOG, CMPF, LIP2, RTSH, T42 #### [place] [address] Protein [Mass/Vol] 7.4 g/dL Normal 6.3-8.2 [facility] Comment on above: Performed By: #### H EMOG, CMPF, LIP2, RTSH, T42 #### [place] [address] Sodium [Moles/Vol] 140 mmol/L Normal 137-145 [facility] Comment on above: Performed By: #### H EMOG, CMPF, LIP2, RTSH, T42 #### [place] [address] Urea nitrogen [Mass/Vol] 19 mg/dL Normal 7-20 [facility] Comment on above: Performed By: #### H EMOG, CMPF, LIP2, RTSH, T42 #### [place] [address] FREE T4on 09-01-2020 Free T4 [Mass/Vol] 1.01 ng/dL Normal 0.78-2.19 [facility] Comment on above: Result Comment: Test ing performed at [place] [address] Performed By: #### H EMOG, CMPF, LIP2, RTSH, T42 #### [place] [address] HEMOGLOBIN A1Con 09-01-2020 Glucose [Mass/Vol] 232 mg/dL Normal [facility] Comment on above: Result Comment: Test ing performed at [place] [address] Performed By: #### H A1CT #### [place] [address] HbA1c (Bld) [Mass fraction] 9.7 % High 0-6 [facility] Comment on above: Result Comment: NORMAL <5.7% PREDIABETES 5.7-6.4% DIABETES 6.5% OR HIGHER Performed By: #### H A1CT #### Testing performed at [address] [address] LIPID PROFILEon 09-01-2020 Cholesterol [Mass/Vol] 232 mg/dL High 107-217 [facility] Comment on above: Performed By: #### H EMOG, CMPF, LIP2, RTSH, T42 #### Testing performed at [address] [address] Cholesterol in HDL [Mass/Vol] 51 mg/dL Normal 33-75 [facility] Comment on above: Performed By: #### H EMOG, CMPF, LIP2, RTSH, T42 #### Testing performed at [address] [address] Cholesterol in LDL [Mass/Vol] 154 mg/dL Normal [facility] Comment on above: Performed By: #### H EMOG, CMPF, LIP2, RTSH, T42 #### Testing performed at [address] [address] Cholesterol in VLDL [Mass/Vol] 27 mg/dL High 5.0-25 [facility] Comment on above: Performed By: #### H EMOG, CMPF, LIP2, RTSH, T42 #### Testing performed at [address] [address] Cholesterol.total/Erika sterol in HDL [Mass ratio] 4.55 {ratio} Normal [facility] Comment on above: Result Comment: RISK TOTAL/HDL RATIO MEN WOMEN 1/2 AVERAGE 3.43 3.27 AVERAGE 4.97 4.44 2X AVERAGE 9.55 7.05 3X AVERAGE 23.99 11.04 Testing performed at [place], [place] [address] Performed By: #### H EMOG, CMPF, LIP2, RTSH, T42 #### Testing performed at [address] [address] Triglyceride [Mass/Vol] 133 mg/dL Normal 0-150 [facility] Comment on above: Performed By: #### H EMOG, CMPF, LIP2, RTSH, T42 #### [place] [address] MALB/CREAT RATIO,URINEon MALB/CREAT RATIO,URINE 30.9 mg MALB/g CREAT High 1.3 -30.0 [facility] Comment on above: Result Comment: Test ing performed at [place] [address] Performed By: #### M CRAT #### [place] [address] MICROALBUMIN,RANDOM URINE 23.6 mg/L High 0-16.7 [facility] Comment on above: Performed By: #### M CRAT #### [place] [address] URINE CREATININE RANDOM 76.3 MG/DL Normal [facility] Comment on above: Result Comment: NO N ORMAL VALUES ESTABLISHED FOR RANDOM SPECIMENS Performed By: #### M CRAT #### [place] [address] TSH,REFLEX FREE T4on 021 TSH,REFLEX FREE T4 6.890 uIU/ML High 0.46-4.68 [facility] Comment on above: Result Comment: Test ing performed at [place] [address] Performed By: #### H EMOG, CMPF, LIP2, RTSH, T42 #### [place] [address] CMP FASTINGon 05-15-2020 A:G RATIO 1.2 RATIO Low 1.3-2.2 [facility] Comment on above: Performed By: #### H EMOG, CMPF, LIP2, RTSH, T42 #### [place] [address] ALBUMIN 4.1 G/dl Normal 3.5-5.0 [facility] Comment on above: Performed By: #### H EMOG, CMPF, LIP2, RTSH, T42 #### Testing performed at [address] [address] ALP [Catalytic activity/Vol] 103 U/L Normal 38-126 [facility] Comment on above: Performed By: #### H EMOG, CMPF, LIP2, RTSH, T42 #### Testing performed at [address] [address] ALT [Catalytic activity/Vol] 15 U/L Normal <35 [facility] Comment on above: Performed By: #### H EMOG, CMPF, LIP2, RTSH, T42 #### Testing performed at [place] [id number] AST [Catalytic activity/Vol] 42 U/L High 14-36 [facility] Comment on above: Performed By: #### H EMOG, CMPF, LIP2, RTSH, T42 #### Testing performed at [address] [address] Bilirubin [Mass/Vol] 0.2 mg/dL Normal 0.2-1.3 [facility] Comment on above: Performed By: #### H EMOG, CMPF, LIP2, RTSH, T42 #### Testing performed at [place] [id number] Calcium [Mass/Vol] 9.3 mg/dL Normal 8.4-10.2 [facility] Comment on above: Performed By: #### H EMOG, CMPF, LIP2, RTSH, T42 #### Testing performed at [address] [address] Chloride [Moles/Vol] 111 mmol/L High 98-107 [facility] Comment on above: Result Comment: Vasyl hickman note: Triglyceride levels of 600mg/dL or higher may positively bias chloride results by approximately 2.1 mmol Performed By: #### H EMOG, CMPF, LIP2, RTSH, T42 #### Testing performed at [place] [id number] CO2 [Moles/Vol] 17 mmol/L Critically low 22-30 [facility] Comment on above: Result Comment: CALL ED TO AND READ BACK BY DAVE CHATTERJEE AT 1115 ON 05.15.2020 Performed By: #### H EMOG, CMPF, LIP2, RTSH, T42 #### [place] [address] Creatinine [Mass/Vol] 1.10 mg/dL Normal 0.7-1.2 [facility] Comment on above: Performed By: #### H EMOG, CMPF, LIP2, RTSH, T42 #### [place] [address] EST. GFR, >60 Normal [facility] Comment on above: Performed By: #### H EMOG, CMPF, LIP2, RTSH, T42 #### [place] [address] EST. GFR,Non 54 ml/min/1.73sq.m [facility] Comment on above: Performed By: #### H EMOG, CMPF, LIP2, RTSH, T42 #### [place] [address] GFR Information Average GFR for 50-5 9 years old = 93. Normal [facility] Comment on above: Result Comment: [employer] Kidney disease, GFR = <60. Kidney failure, GFR = <15. The GFR estimate is not adjusted for extreme body surface area or acute process, nor has it been validated for women or ethnic groups other than and . Testing performed at [place] [address] Performed By: #### H EMOG, CMPF, LIP2, RTSH, T42 #### [place] [address] Glucose [Mass/Vol] 190 mg/dL High 70-100 [facility] Comment on above: Result Comment: NORMAL <100 mg/dL PREDIABETES 101-126 mg/dL DIABETES 126 mg/dL or higher Performed By: #### H EMOG, CMPF, LIP2, RTSH, T42 #### [place] [address] Potassium [Moles/Vol] 3.7 mmol/L Normal 3.5-5.1 [facility] Comment on above: Performed By: #### H EMOG, CMPF, LIP2, RTSH, T42 #### [place] [address] Protein [Mass/Vol] 7.6 g/dL Normal 6.3-8.2 [facility] Comment on above: Performed By: #### H EMOG, CMPF, LIP2, RTSH, T42 #### [place] [address] Sodium [Moles/Vol] 138 mmol/L Normal 137-145 [facility] Comment on above: Performed By: #### H EMOG, CMPF, LIP2, RTSH, T42 #### [place] [address] Urea nitrogen [Mass/Vol] 24 mg/dL High 7-20 [facility] Comment on above: Performed By: #### H EMOG, CMPF, LIP2, RTSH, T42 #### [place] [address] HEMOGLOBIN A1Con 05-15-2020 Glucose [Mass/Vol] 240 mg/dL Normal [facility] Comment on above: Result Comment: Test ing performed at [place] [address] Performed By: #### H EMOG, CMPF, LIP2, RTSH, T42 #### [place] [address] HbA1c (Bld) [Mass fraction] 10.0 % High 0-6 [facility] Comment on above: Result Comment: NORMAL <5.7% PREDIABETES 5.7-6.4% DIABETES 6.5% OR HIGHER Performed By: #### H EMOG, CMPF, LIP2, RTSH, T42 #### [place] [address] LIPID PROFILEon 05-15-2020 Cholesterol [Mass/Vol] 228 mg/dL High 107-217 [facility] Comment on above: Performed By: #### H EMOG, CMPF, LIP2, RTSH, T42 #### Testing performed at [address] [address] Cholesterol in HDL [Mass/Vol] 36 mg/dL Normal 33-75 [facility] Comment on above: Performed By: #### H EMOG, CMPF, LIP2, RTSH, T42 #### Testing performed at [address] [address] Cholesterol in LDL [Mass/Vol] 161 mg/dL Normal [facility] Comment on above: Performed By: #### H EMOG, CMPF, LIP2, RTSH, T42 #### Testing performed at [address] [address] Cholesterol in VLDL [Mass/Vol] 31 mg/dL High 5.0-25 [facility] Comment on above: Performed By: #### H EMOG, CMPF, LIP2, RTSH, T42 #### Testing performed at [address] [address] Cholesterol.total/Erika sterol in HDL [Mass ratio] 6.33 {ratio} Normal [facility] Comment on above: Result Comment: RISK TOTAL/HDL RATIO MEN WOMEN 1/2 AVERAGE 3.43 3.27 AVERAGE 4.97 4.44 2X AVERAGE 9.55 7.05 3X AVERAGE 23.99 11.04 Testing performed at [place], [place] [address] Performed By: #### H EMOG, CMPF, LIP2, RTSH, T42 #### Testing performed at [address] [address] Triglyceride [Mass/Vol] 157 mg/dL High 0-150 [facility] Comment on above: Performed By: #### H EMOG, CMPF, LIP2, RTSH, T42 #### Testing performed at [address] [address] MALB/CREAT RATIO,URINEon MALB/CREAT RATIO,URINE 18.8 mg MALB/g CREAT Normal 1.3 -30.0 [facility] Comment on above: Result Comment: Test ing performed at [place] [id number] Performed By: #### M CRAT #### [place] [address] MICROALBUMIN,RANDOM URINE 9.3 mg/L Normal 0-16.7 [facility] Comment on above: Performed By: #### M CRAT #### Testing performed at [facility] [address] [place] [address] URINE CREATININE RANDOM 49.4 MG/DL Normal [facility] Comment on above: Result Comment: NO N ORMAL VALUES ESTABLISHED FOR RANDOM SPECIMENS Performed By: #### M CRAT #### Testing performed at [place] [id number] XR RIBS LT PA Boby 0 XR RIBS LT PA CH EXAMINATION: XR RIBS LT PA CH HISTORY: Superficial injury of chest ; acute left rib pain since falling 2 weeks ago; also anterior chest pain COMPARISON: No relevant comparison available. FINDINGS: LUNGS: No significant pulmonary parenchymal abnormalities. PLEURA: No pneumothorax, effusion, or pleural thickening. MEDIASTINUM: No visible mass or adenopathy. CARDIAC: No cardiomegaly or cardiac silhouette abnormality. RIBS: No visible fracture. OTHER: Negative. IMPRESSION: 1. No visible rib fracture. 2. No acute cardiopulmonary process. Electronically authenticated by: LUIS ANDRES Date: 2020-01-27 13:26 Normal [facility] XR FINGER MIN 2 VIEWSon 11 XR FINGER MIN 2 VIEWS PROCEDURE: XR FING ER MIN 2 VIEWS HISTORY: Abscess of tip of second digit of left hand COMPARISON: None. FINDINGS: BONES:Suspect mild cortical destruction along the lateral margin of the tuft of the distal phalanx of the second digit. 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 SOFT TISSUES:Soft tissue swelling of the distal second digit. No radiopaque foreign body. EFFUSION:None visible. OTHER: Negative. IMPRESSION: 1. Soft tissue swelling of the distal second digit and findings suspicious for osteomyelitis. Electronically authenticated by: LUIS ANDRES Date: 2019-12-22 10:13 Normal [facility] BLOOD UREA NITROGENon 2019 Urea nitrogen [Mass/Vol] 16 mg/dL Normal 09-05 [facility] CREATININE,SERUMon 0 Creatinine [Mass/Vol] Average GFR for 50 -59 years old = 93. Normal [facility] Comment on above: Result Comment: [employer] Kidney disease, GFR = <60. Kidney failure, GFR = <15. The GFR estimate is not adjusted for extreme body surface area or acute process, nor has it been validated for women or ethnic groups other than and . Creatinine [Mass/Vol] mg/dL Normal [facility] Creatinine [Mass/Vol] 52 ml/min/1.73sq.m [facility] Creatinine [Mass/Vol] 1.14 mg/dL Normal 0.7-1.2 [facility] FAX REQUESTon 03-08-2019 FAX TO Normal [facility] BLOOD UREA NITROGENon 2019 Urea nitrogen [Mass/Vol] 23 mg/dL High - [facility] CREATININE,SERUMon 0 Creatinine [Mass/Vol] 38 ml/min/1.73sq.m [facility] Creatinine [Mass/Vol] 47 ml/min/1.73sq.m [facility] Creatinine [Mass/Vol] Average GFR for 50 -59 years old = 93. Normal [facility] Comment on above: Result Comment: [employer] Kidney disease, GFR = <60. Kidney failure, GFR = <15. The GFR estimate is not adjusted for extreme body surface area or acute process, nor has it been validated for women or ethnic groups other than and . Creatinine [Mass/Vol] 1.49 mg/dL High 0.7-1.2 [facility] FAX REQUESTon 03-01-2019 FAX TO [facility] hospital US DUPLEX EXTREMITY DVT LEFT on 01-29-2019 US DUPLEX EXTREMITY DVT LEFT LEFT LOWER EXTREMITY VENOUS DOPPLER ULTRASOUND INDICATION: Evaluate for deep venous thrombosis. TECHNIQUE: Shah scale, color-flow, and Doppler waveform analysis of the left common femoral vein, greater saphenous vein, femoral vein, popliteal vein, and below knee calf veins were obtained. COMPARISON: None.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 mass conc ng/mL Normal < 45 [facility] Comment on above: Result Comment: Elev ation of troponin indicates some degree of myocardial necrosis but unless there is a significant rise and/or fall (if elevated) identified, it unlikely that an acute event has taken place Samples from patients routinely receiving high dose biotin therapy (100-300 mg/day) may show falsely decreased results. Please correlate clinically. Performed By: #### C BCDIF, CMET, EDCTNI #### Unless otherwise noted, all testing performed by [address] [address] CLIA: [id number] Raw Scales Operator: Adilson Niño M.D. RIBS UNILATERALon 06-04-2017 RIBS UNILATERAL Final Report Accession No: [id number] Performed: Jun 04 2017 9:56PM Examination: LEFT RIBS UNILATERAL EXAM: RIBS UNILATERAL LEFT DATE: 06/04/2017 10:38 PM HISTORY: Pain, trauma. COMPARISON: None. FINDINGS: There is no convincing evidence of acute or healing rib fracture. No destructive lesion. Borderline cardiac enlargement. Low lung volumes. No consolidation, effusion, or pneumothorax. Previous rotator cuff surgery, left shoulder. Prior cholecystectomy. IMPRESSION: No direct evidence of rib fracture or traumatic malalignment. No acute cardiopulmonary disease demonstrated. Interpreting Physician: IVETT TANNER M.D. Trans: istumb : cc: Normal [facility] Culture,Bacterialon 04-23-19 18 Culture,Bacterial Test Name: Culture,Bacterial Site: LEFT ANKLE Culture Status: Final Culture Report: Growth Gram Stain: No WBC's No Squamous Epithelial Cells No Organisms Seen Micro Source: Wound ORGANISM ID: 1 - Rare STAPHYLOCOCCUS AUREUS ANTIBIOTIC INTERPRETATION BECKY STATUS Clindamycin S 0.25 F Doxycycline S <= 0.5 F Erythromycin S <= 0.25 F Oxacillin S 0.5 F Trimeth/Sulfa S <= 10 F Vancomycin S <= 0.5 F Normal [facility] Comment on above: Performed By: #### C ULT #### Unless otherwise noted, all testing performed by [place] [address] CLIA: [id number] Raw Scales Operator: Adilson Niño M.D. Progress Noteon 04-22-2017 [place] [address] NAME MEG GEORGES [id number] 1965 DATE PROGRESS NOTE Meg seen today for the left great toe, as well as the left Achilles tendon. The patient's left great toe has an ulcer that showed up since I had seen her last. There is no pus noted. No signs of infection in either wound there. The left great toe wound was partial thickness. The posterior left Achilles wound was 1 x 1 cm. The patient's pulses apparently are adequate according to vascular. The patient has diminished sensation in her feet ASSESSMENT 1. Posterior left ankle ulcer, healing slowly. 2. Left great toe ulcer, partial thickness. PLAN I performed a sharp excisional debridement with a 15 blade handle to remove all devitalized tissue full thickness down to subcu on left Achilles tendon. I did a partial-thickness debridement of the left big toe. Applied Ashu to both wounds to be changed on Friday. We will see patient back in a week. MARK MARQUEZ 04/22/2017 12:51 [id number] T 04/22/2017 16:19 BJDaya/RICAL Electronically Signed By Pili Gilliam DPM on 23 Apr 2017 17:35:14 GMT Normal [facility] Culture,Bacterialon 04-19-19 18 Culture,Bacterial Test Name: Culture,Bacterial Site: left foot Culture Status: Final Gram Stain: Rare WBC's Rare Squamous Epithelial Cells Rare Gram Positive Cocci Micro Source: Wound drainage ORGANISM ID: 1 - Moderate STAPHYLOCOCCUS AUREUS ANTIBIOTIC INTERPRETATION BECKY STATUS Clindamycin S 0.25 F Doxycycline S <= 0.5 F Erythromycin S <= 0.25 F Oxacillin S 0.5 F Trimeth/Sulfa S <= 10 F Vancomycin S 1 F Normal [facility] Comment on above: Performed By: #### C ULT #### Unless otherwise noted, all testing performed by [address] [place] [place], [place] [address] CLIA: [id number] Raw Scales Operator: Adilson Niño M.D. Vital Signs Date Time Vital Sign Value Performing Clinician Alejandro douglas 08-10-2021 20:30-0400 Diastolic blood pressure 88 mm[Hg] Anthony Lucero DO Work Phone: [facility] [employer] 08-10-2021 20:30-0400 Heart rate 88 /min Anthony Lucero DO Work Phone: [facility] [employer] 08-10-2021 20:30-0400 Respiratory rate 18 /min Anthony Lucero DO Work Phone: [facility] [employer] 08-10-2021 20:30-0400 SaO2% (BldA) [Mass fraction] 100 % Anthony Lucero DO Work Phone: [facility] [employer] 08-10-2021 20:30-0400 Systolic blood pressure 144 mm[Hg] Anthony Lucero DO Work Phone: [facility] [facility] [employer] 08-10-2021 18:00-0400 Body temperature 100 [degF] Anthony Lucero DO Work Phone: [facility] [employer] 08-10-2021 13:33-0400 Body height 165.1 cm Anthony Lucero DO Work Phone: [facility] [employer] 08-08-2021 06:00-0400 Body mass index (BMI) [Ratio] 21.72 kg/m2 Anthony Lucero DO Work Phone: [facility] [employer] 08-08-2021 06:00-0400 Body weight 59.2 kg Anthony Lucero DO Work Phone: [facility] [employer] 07-14-2021 14:00-0400 Diastolic blood pressure 79 mm[Hg] Anthony Villarreal MD Work Phone: [facility] [employer] 07-14-2021 14:00-0400 Heart rate 100 /min Anthony Villarreal MD Work Phone: [facility] [employer] 07-14-2021 14:00-0400 SaO2% (BldA) [Mass fraction] 94 % Anthony Villarreal MD Work Phone: [facility] [employer] 07-14-2021 14:00-0400 Systolic blood pressure 143 mm[Hg] Anthony Villarreal MD Work Phone: [facility] [employer] [facility] [employer] 07-14-2021 11:15-0400 Respiratory rate 16 /min Anthony Villarreal MD Work Phone: [facility] [employer] [facility] [employer] 07-13-2021 20:37-0400 Body height 165.1 cm Anthony Villarreal MD Work Phone: [facility] [employer] [facility] [employer] 07-13-2021 20:37-0400 Body mass index (BMI) [Ratio] 23.3 kg/m2 Anthony Villarreal MD Work Phone: [facility] [employer] [facility] 07-13-2021 20:37-0400 Body weight 63.5 kg Anthony Villarreal MD Work Phone: [facility]ITALTruTag Technologies 07-13-2021 20:20-0400 Body temperature 97.5 [degF] Anthony Villarreal MD Work Phone: [facility]ITALIn[facility] [employer] [facility] 07-10-2021 10:55-0400 Body temperature 97.81 [degF] Wil Martinez MD Work Phone: [facility]ITALTruTag Technologies 07-10-2021 10:55-0400 Diastolic blood pressure 54 mm[Hg] Wil Martinez MD Work Phone: [facility]IT[facility] 07-10-2021 10:55-0400 Heart rate 88 /min Wil Martinez MD Work Phone: [facility]IT[facility]ru[facility] 07-10-2021 10:55-0400 Respiratory rate 14 /min Wil Martinez MD Work Phone: [facility]IT[facility]ru[facility] 07-10-2021 10:55-0400 SaO2% (BldA) [Mass fraction] 98 % Wil Martinez MD Work Phone: [facility]ITALTru[facility] 07-10-2021 10:55-0400 Systolic blood pressure 102 mm[Hg] Wil Martinez MD Work Phone: [facility]ITALTru[facility] 07-10-2021 06:00-0400 Body mass index (BMI) [Ratio] 26.91 kg/m2 Wil Martinez MD Work Phone: [facility]ITAL[facility] 07-10-2021 06:00-0400 Body weight 73.35 kg Wil Martinez MD Work Phone: [facility]ITALInCo[facility] [employer] [facility] [employer] 07-05-2021 15:43-0400 Body height 165.1 cm Wil Martinez MD Work Phone: [facility]ITALTru[facility] 06-28-2021 09:45-0400 Diastolic blood pressure 85 mm[Hg] Chris Boothe MD Work Phone: [employer] 06-28-2021 09:45-0400 Heart rate 106 /min Chris Boothe MD Work Phone: [employer] 06-28-2021 09:45-0400 Respiratory rate 25 /min Chris Boothe MD Work Phone: [employer] 06-28-2021 09:45-0400 SaO2% (BldA) [Mass fraction] 98 % Chris Boothe MD Work Phone: [employer] 06-28-2021 09:45-0400 Systolic blood pressure 180 mm[Hg] Chris Boothe MD Work Phone: [employer] 06-28-2021 07:41-0400 Body mass index (BMI) [Ratio] 24.13 kg/m2 Chris Boothe MD Work Phone: [employer] 06-28-2021 07:41-0400 Body weight 65.77 kg Chris Boothe MD Work Phone: [employer] 06-28-2021 03:49-0400 Body temperature 97.9 [degF] Chris Boothe MD Work Phone: [employer] 05-11-2021 15:31-0400 Diastolic blood pressure 63 mm[Hg] [facility] 05-11-2021 15:31-0400 Heart rate 84 /min [facility]-Ic4 [facility] 05-11-2021 15:31-0400 Respiratory rate 16 /min [facility]-4 [facility] 05-11-2021 15:31-0400 Systolic blood pressure 132 mm[Hg] [facility]4 [facility] 05-11-2021 13:31-0400 Body temperature 97.2 [degF] [address] 05-01-2021 14:36-0400 Body mass index (BMI) [Ratio] 25.81 kg/m2 Tia Baugh PA-C Work Phone: [facility] 05-01-2021 14:36-0400 Body temperature 98.29 [degF] Tia Baugh PA-C Work Phone: [facility] 05-01-2021 14:36-0400 Body weight 70.35 kg Tia Baugh PA-C Work Phone: [facility] 05-01-2021 14:36-0400 Diastolic blood pressure 88 mm[Hg] Tia Baugh PA-C Work Phone: [facility] 05-01-2021 14:36-0400 Heart rate 77 /min Tia Baugh PA-C Work Phone: [facility] 05-01-2021 14:36-0400 Respiratory rate 16 /min Tia Baguh PA-C Work Phone: [facility] 05-01-2021 14:36-0400 SaO2% (BldA) [Mass fraction] 97 % Tia Baugh PA-C Work Phone: [facility] 05-01-2021 14:36-0400 Systolic blood pressure 137 mm[Hg] Tia Baugh PA-C Work Phone: [facility] 04-17-2021 11:06-0500 Diastolic blood pressure 79 mm[Hg] Jef Sierra Jr., DPM Work Phone: [facility] 04-17-2021 11:06-0500 Heart rate 99 /min Jef Mariela Jr., DPM Work Phone: [facility] 04-17-2021 11:06-0500 Systolic blood pressure 123 mm[Hg] Jef Mariela Jr., DPM Work Phone: [facility] 04-17-2021 10:49-0500 Body temperature 98.2 [degF] Jef Mariela Jr., DPM Work Phone: [facility] 03-27-2021 11:06-0500 Body temperature 97.9 [degF] Jef Mariela Jr., DPM Work Phone: [facility] 03-27-2021 11:06-0500 Diastolic blood pressure 88 mm[Hg] Jef Mariela Jr., DPM Work Phone: [facility] 03-27-2021 11:06-0500 Heart rate 89 /min Jef Mariela Jr., DPM Work Phone: [facility] 03-27-2021 11:06-0500 Systolic blood pressure 146 mm[Hg] Jef Mariela Jr., DPM Work Phone: [facility] 02-20-2021 09:55-0500 Diastolic blood pressure 85 mm[Hg] Jef Mariela Jr., DPM Work Phone: [facility] 02-20-2021 09:55-0500 Heart rate 89 /min Jef Mariela Jr., DPM Work Phone: [facility] 02-20-2021 09:55-0500 Systolic blood pressure 154 mm[Hg] Jef Mariela Jr., DPM Work Phone: [facility] 02-20-2021 09:52-0500 Body temperature 97.59 [degF] Jef Mariela Jr., DPM Work Phone: [facility] 2021 11:17-0500 Body temperature 97.7 [degF] Jef Mariela Jr., DPM Work Phone: [facility] 2021 11:17-0500 Diastolic blood pressure 80 mm[Hg] Jef Mariela Jr., DPM Work Phone: [facility] 2021 11:17-0500 Heart rate 96 /min Jef Mariela Jr., DPM Work Phone: [facility] 2021 11:17-0500 Systolic blood pressure 157 mm[Hg] Jef Mariela Jr., DPM Work Phone: [facility] 01-30-2021 10:31-0500 Body temperature 98.4 [degF] Jef Mariela Jr., DPM Work Phone: [facility] 01-30-2021 10:31-0500 Diastolic blood pressure 81 mm[Hg] Jef Mariela Jr., DPM Work Phone: [facility] 01-30-2021 10:31-0500 Heart rate 98 /min Jef Mariela Jr., DPM Work Phone: [facility] 01-30-2021 10:31-0500 Systolic blood pressure 156 mm[Hg] Jef Mariela Jr., DPM Work Phone: [facility] 01-24-2021 15:58-0500 Body temperature 97.7 [degF] Jef Mariela Jr., DPM Work Phone: [facility] 01-24-2021 15:58-0500 Diastolic blood pressure 80 mm[Hg] Jef Mariela Jr., DPM Work Phone: [facility] 01-24-2021 15:58-0500 Heart rate 101 /min Jef Mariela Jr., DPM Work Phone: [facility] 01-24-2021 15:58-0500 Systolic blood pressure 163 mm[Hg] Jef Mariela Jr., DPM Work Phone: [facility] 01-16-2021 10:58-0500 Body temperature 97.7 [degF] Jef Mariela Jr., DPM Work Phone: [facility] 01-16-2021 10:58-0500 Diastolic blood pressure 83 mm[Hg] Jef Mariela Jr., DPM Work Phone: [facility] 01-16-2021 10:58-0500 Heart rate 102 /min Jef Mariela Jr., DPM Work Phone: [facility] 01-16-2021 10:58-0500 Systolic blood pressure 143 mm[Hg] Jef Mariela Jr., DPM Work Phone: [facility] 01-09-2021 08:43-0500 Body temperature 97.2 [degF] Jef Mariela Jr., DPM Work Phone: [facility] 01-09-2021 08:43-0500 Diastolic blood pressure 81 mm[Hg] Jef Mariela Jr., DPM Work Phone: [facility] 01-09-2021 08:43-0500 Heart rate 99 /min Jef Mariela Jr., DPM Work Phone: [facility] 01-09-2021 08:43-0500 Systolic blood pressure 156 mm[Hg] Jef Mariela Jr., DPM Work Phone: [facility] 01-02-2021 09:09-0500 Body temperature 97.7 [degF] Jef Mariela Jr., DPM Work Phone: [facility] 01-02-2021 09:09-0500 Diastolic blood pressure 85 mm[Hg] Jef Mariela Jr., DPM Work Phone: [facility] 01-02-2021 09:09-0500 Heart rate 83 /min Jef Mariela Jr., DPM Work Phone: [facility] 01-02-2021 09:09-0500 Systolic blood pressure 149 mm[Hg] Jef Mariela Jr., DPM Work Phone: [facility] 12-19-2020 11:17-0400 Body height 165.1 cm Jef Mariela Jr., DPM Work Phone: [facility] 12-19-2020 11:17-0400 Body mass index (BMI) [Ratio] 25.46 kg/m2 Jef Mariela Jr., DPM Work Phone: [facility] 12-19-2020 11:17-0400 Body temperature 97.2 [degF] Jef Mariela Jr., DPM Work Phone: [facility] 12-19-2020 11:17-0400 Body weight 69.4 kg Jef Mariela Jr., DPM Work Phone: [facility] 12-19-2020 11:17-0400 Diastolic blood pressure 84 mm[Hg] Jef Mariela Jr., DPM Work Phone: [facility] 12-19-2020 11:17-0400 Heart rate 111 /min Jef Mariela Jr., DPM Work Phone: [facility] 12-19-2020 11:17-0400 Systolic blood pressure 144 mm[Hg] Jef Mariela Jr., DPM Work Phone: [facility] 10-17-2020 08:11-0400 Body height 153.7 cm Jef Mariela Jr., DPM Work Phone: [facility] 10-17-2020 08:11-0400 Body mass index (BMI) [Ratio] 29.39 kg/m2 Jef Mariela Jr., DPM Work Phone: [facility] 10-17-2020 08:11-0400 Body temperature 97.2 [degF] Jef Mariela Jr., DPM Work Phone: [facility] 10-17-2020 08:11-0400 Body weight 69.4 kg Jef Velasquezute Ambrosio, DPM Work Phone: [facility] 10-17-2020 08:11-0400 Diastolic blood pressure 79 mm[Hg] Jef Mariela Ambrosio, DPM Work Phone: [facility] 10-17-2020 08:11-0400 Heart rate 82 /min Jef Mariela Ambrosio, DPM Work Phone: [facility] 10-17-2020 08:11-0400 Systolic blood pressure 133 mm[Hg] Jef Mariela Ambrosio, DPM Work Phone: [facility] 10-03-2020 11:22-0400 Diastolic blood pressure 83 mm[Hg] [address] 10-03-2020 11:22-0400 Heart rate 84 /min [address] 10-03-2020 11:22-0400 Respiratory rate 16 /min [address] 10-03-2020 11:22-0400 Systolic blood pressure 174 mm[Hg] [address] 10-03-2020 09:15-0400 Body temperature 97.9 [degF] [address] 09-26-2020 11:50-0400 Body height 165.1 cm Franck Mtz MD Work Phone: [facility] 09-26-2020 11:50-0400 Body mass index (BMI) [Ratio] 25.96 kg/m2 Franck Mtz MD Work Phone: [facility] 09-26-2020 11:50-0400 Body weight 70.76 kg Franck Mtz MD Work Phone: [facility] 09-26-2020 11:50-0400 Diastolic blood pressure 67 mm[Hg] Franck Mtz MD Work Phone: [facility] 09-26-2020 11:50-0400 Heart rate 105 /min Franck Mtz MD Work Phone: [facility] 09-26-2020 11:50-0400 Systolic blood pressure 142 mm[Hg] Franck Mtz MD Work Phone: [facility] 09-21-2020 13:31-0400 Diastolic blood pressure 68 mm[Hg] [address] 09-21-2020 13:31-0400 Heart rate 89 /min [address] 09-21-2020 13:31-0400 Respiratory rate 16 /min [address] 09-21-2020 13:31-0400 Systolic blood pressure 154 mm[Hg] [address] 09-21-2020 11:36-0400 Body temperature 97.9 [degF] [address] 09-14-2020 14:39-0400 Body temperature 99.39 [degF] Jef Sierra Jr., DPM Work Phone: [facility] 09-14-2020 14:39-0400 Diastolic blood pressure 85 mm[Hg] Jef Sierra Jr., DPM Work Phone: [facility] 09-14-2020 14:39-0400 Heart rate 98 /min Jef Sierra Jr., DPM Work Phone: [facility] 09-14-2020 14:39-0400 Systolic blood pressure 145 mm[Hg] Jef Sierra Jr., DPM Work Phone: [facility] 09-13-2020 09:34-0400 Body height 165.1 cm Luis Miguel Kaur MD Work Phone: [facility] 09-13-2020 09:34-0400 Body mass index (BMI) [Ratio] 25.66 kg/m2 uLis Miguel Kaur MD Work Phone: [facility] 09-13-2020 09:34-0400 Body weight 69.94 kg Luis Miguel Kaur MD Work Phone: [facility] 09-13-2020 09:34-0400 Diastolic blood pressure 74 mm[Hg] Luis Miguel Kaur MD Work Phone: [facility] 09-13-2020 09:34-0400 Heart rate 89 /min Luis Miguel Kaur MD Work Phone: [facility] 09-13-2020 09:34-0400 Systolic blood pressure 158 mm[Hg] Luis Miguel Kaur MD Work Phone: [facility] 04-18-2020 08:16-0500 Body height 153.7 cm Jef Sierra Jr., DPM Work Phone: [facility] 04-18-2020 08:16-0500 Body mass index (BMI) [Ratio] 29.39 kg/m2 Jef Sierra Jr., DPM Work Phone: [facility] 04-18-2020 08:16-0500 Body weight 69.4 kg Jef Sierra Jr., DPM Work Phone: [facility] 04-18-2020 08:16-0500 Diastolic blood pressure 86 mm[Hg] Jef Sierra Jr., DPM Work Phone: [facility] 04-18-2020 08:16-0500 Systolic blood pressure 136 mm[Hg] Jef Sierra Jr., DPM Work Phone: [facility] 05-29-2018 09:31-0400 BMI (Body Mass Index) 25.29 kg/m2 Jonathan Camara [facility] 05-29-2018 09:31-0400 Body Temperature 98.4 [degF] Jonathan Camara [facility] 05-29-2018 09:31-0400 BP Diastolic 90 mm[Hg] Jonathan [facility] 05-29-2018 09:31-0400 BP Systolic 159 mm[Hg] Jonathan [facility] 05-29-2018 09:31-0400 Height 165.1 cm Jonathan [facility] 05-29-2018 09:31-0400 Pulse (Heart Rate) 102 /min Jonathan [facility] 05-29-2018 09:31-0400 Pulse Oximetry 100 % Jonathan [facility] 05-29-2018 09:31-0400 Respiratory Rate 16 /min [facility] 05-29-2018 09:31-0400 Weight 68.95 kg [facility] 01-01-2018 14:05-0500 BMI (Body Mass Index) 25.07 kg/m2 [facility] Work Phone: 01-01-2018 14:05-0500 BP Diastolic 75 mm[Hg] [facility] Work Phone: 01-01-2018 14:05-0500 BP Systolic 121 mm[Hg] [facility] Work Phone: 01-01-2018 14:05-[address] [facility] Work Phone: 01-01-2018 14:05-0500 Pulse (Heart Rate) 108 /min [facility] Work Phone: 01-01-2018 14:05-[address] [facility] Work Phone: 04-07-2017 12:24-0500 BP Diastolic 67 mm[Hg] Re[facility] 04-07-2017 12:24-0500 BP Systolic 100 mm[Hg] [facility] 04-07-2017 12:24-0500 Pulse (Heart Rate) 98 /min Re[facility] 04-07-2017 12:22-0500 BMI (Body Mass Index) 26.49 kg/m2 Reji Miramontes [facility] 04-07-2017 12:22-0500 Height 165.1 cm Reji Miramontes [facility] 04-07-2017 12:22-0500 Respiratory Rate 16 /min Reji Miramontes [facility] 04-07-2017 12:22-0500 Weight 72.21 kg Reji Miramontes [facility] Encounters Encounter Date Encounter Type Care Provider Facility Start: 02-23-2024 ambulatory Jami L Jemima Facility: [facility] Start: 11-21-2023 End: 11-21-2023 ambulatory Jami L Jemima [facility] Start: 10-24-2023 End: 10-24-2023 ambulatory Jami L Jemima Facility:[facility] Start: 10-10-2023 [facility] Start: 08-19-2023 End: 08-19-2023 ambulatory NADIA CHAUDHARY Not Available Start: 05-27-2023 End: 05-27-2023 ambulatory Alaa ALAHMAD Facility:[facility] Start: 04-03-2023 End: 04-03-2023 ambulatory Ina Barcenas Facility:[facility] Start: 04-01-2023 End: 04-07-2023 Evaluation and management of inpatient Yaritza Evans Facility:[facility] Start: 03-29-2023 End: 03-29-2023 ambulatory RUFUS SHEN Facility:[facility] Start: 03-29-2023 Clinisync Result Encounter Rufus Shen MD Work Phone: [facility] External [facility] Unsolicited Start: 03-29-2023 Clinisync Result Encounter Rufus Shen MD Work Phone: [facility] External [facility] Unsolicited Start: 03-07-2023 End: 03-07-2023 ambulatory Platt Talal Nadeenmini Facility:[facility] Start: 01-16-2023 End: 01-16-2023 ambulatory Platt Talal Sarmini Facility:[facility] Start: 01-07-2023 End: 01-09-2023 Evaluation and management of inpatient Wil Putnam Facility:[facility] Start: 01-05-2023 End: 01-05-2023 Emergency department patient visit Joanne Templeton Facility:[facility] Start: 01-04-2023 End: 01-04-2023 ambulatory RUFUS SHEN Facility:[facility] Start: 12-13-2022 End: 12-13-2022 ambulatory MIGUEL BARKSDALE Facility:[facility] Start: 12-05-2022 End: 12-05-2022 ambulatory MIGUELMARIUSZ OGJack SESAYZAKIAEMERALD Facility:[facility] Start: 12-03-2022 End: 12-03-2022 ambulatory [facility] Start: 11-22-2022 End: 11-25-2022 ambulatory GANGA SAV[facility] Start: 04-02-2022 End: 04-05-2022 ambulatory ALISIA VAISHALI CRUMP [facility] Start: 04-02-2022 End: 04-04-2022 Subsequent hospital visit by physician Vineet McH Xr [facility] Comment on above: S/P cervical spinal fusion Start: 12-04-2021 End: 12-06-2021 Subsequent hospital visit by physician Vineet C-Arm 1 [facility] Comment on above: [employer] instabi lity; S/P cervical spinal fusion Start: 11-22-2021 End: 11-22-2021 ambulatory Rufus Shen Facility:[facility] Start: 11-22-2021 End: 11-22-2021 ambulatory II Rufus Shen Work Phone: [facility] Work Phone: Start: 11-22-2021 End: 11-22-2021 Departed Referred II Rufus Shen Work Phone: [facility] [place] Start: 08-20-2021 End: 08-22-2021 Evaluation and management of inpatient JERRY POZO Facility:[facility] Start: 07-14-2021 End: 08-10-2021 Evaluation and management of inpatient Anthony Lucero DO Work Phone: [facility] Start: 07-13-2021 End: 07-14-2021 Emergency department patient visit Anthony Villarreal MD Work Phone: [facility] ED Comment on above: COVID-19 (Primary Dx ); Pneumonia of left lower lobe due to infectious organism; Hypokalemia; Hypomagnesemia; MCFP (current) use of antibiotics Start: 06-28-2021 End: 07-10-2021 Evaluation and management of inpatient Wil Martinez MD Work Phone: [facility]EP DOWN Start: 06-28-2021 End: 06-28-2021 Emergency department patient visit Chris Boothe MD Work Phone: [facility] ED Comment on above: Non-intractable vomi ting with nausea, unspecified vomiting type (Primary Dx); Altered mental status, unspecified altered mental status type; Leukocytosis, unspecified type Start: 05-18-2021 End: 05-29-2021 Evaluation and management of inpatient [facility] Start: 05-18-2021 End: 05-18-2021 Emergency department patient visit [facility] Start: 05-15-2021 ambulatory [facility] Facilit y:[facility] Start: 05-11-2021 ambulatory SANIA CRUZ Facility: [facility] Start: 05-11-2021 End: 05-11-2021 ambulatory [facility] Mmp-Ic4 [facility] Start: 05-11-2021 End: 05-11-2021 Patient encounter procedure Sania Shiraz DO Work Phone: [facility] Comment on above: CIDP (chronic inflam matory demyelinating polyneuropathy) (Primary Dx) Start: 05-07-2021 ambulatory [facility] Facilit y:[facility] Start: 05-01-2021 End: 05-01-2021 ambulatory [facility] Start: 05-01-2021 End: 05-01-2021 Office outpatient visit 15 minutes Tia Baugh PA-C Work Phone: [facility] [place] Comment on above: Partial thickness bu rn of single finger of right hand excluding thumb, initial encounter (Primary Dx); Wound infection; Laceration of right thumb, initial encounter Start: 04-25-2021 ambulatory [facility] Facilit y:[facility] Start: 04-17-2021 End: 04-17-2021 ambulatory [facility] Start: 04-17-2021 End: 04-17-2021 Office outpatient visit 15 minutes Jef Sierra DPM Work Phone: [facility] Comment on above: Chronic ulcer of gre at toe of left foot with fat layer exposed (HCC) (Primary Dx) Start: 04-12-2021 ambulatory [facility] Facilit y:[facility] Start: 04-12-2021 ambulatory [facility] Facilit y:[facility] Start: 04-06-2021 End: 04-06-2021 Evaluation and management of inpatient PCP PCP UNKNOWN~[phone] PHYSICIAN PHYSICIAN [facility] Start: 04-06-2021 End: 04-07-2021 Evaluation and management of inpatient VAISHALI SLIMAN [facility] Start: 04-05-2021 ambulatory [facility] Facilit y:[facility] Start: 03-27-2021 End: 03-27-2021 ambulatory [facility] Start: 03-27-2021 End: 03-27-2021 Office outpatient visit 15 minutes Jef Seirra DPM Work Phone: [facility] Comment on above: Chronic ulcer of gre at toe of left foot with fat layer exposed (HCC) (Primary Dx) Start: 03-07-2021 ambulatory KRYSTYNA BUSBY Facility :[facility] Start: 03-06-2021 End: 03-06-2021 ambulatory [facility] Start: 03-01-2021 ambulatory [facility] Facilit y:[facility] Start: 02-21-2021 ambulatory NERI P HOUSE Facilit y:[facility] Start: 02-20-2021 End: 02-20-2021 ambulatory [facility] Start: 02-20-2021 End: 02-20-2021 Patient encounter procedure Jef Sierra DPM Work Phone: [facility] Comment on above: Chronic ulcer of gre at toe of left foot with fat layer exposed (HCC) Start: 02-15-2021 ambulatory NERI Parker HOUSE Facilit y:[facility] Start: 02-14-2021 ambulatory NERI P HOUSE Facilit y:[facility] Start: 02-12-2021 ambulatory NERI P HOUSE Facilit y:[facility] Start: 02-07-2021 ambulatory NERI P HOUSE Facilit y:[facility] Start: 2021 End: 2021 ambulatory [facility] Start: 2021 End: 2021 Patient encounter procedure Jef Velasquezn DPM Work Phone: [facility] Comment on above: Ulcer of left foot w ith fat layer exposed (HCC) (Primary Dx) Start: 01-30-2021 End: 01-30-2021 ambulatory [facility] Start: 01-30-2021 End: 01-30-2021 Patient encounter procedure Jef Mariela DPM Work Phone: [facility] Comment on above: Ulcer of left foot w ith fat layer exposed (HCC) (Primary Dx) Start: 01-24-2021 End: 01-24-2021 ambulatory JEF VELASQUEZUte [facility] Start: 01-24-2021 End: 01-24-2021 Patient encounter procedure Jef Mariela DPM Work Phone: [facility] Comment on above: Ulcer of left foot w ith fat layer exposed (HCC) (Primary Dx) Start: 01-23-2021 ambulatory NERI Parker HOUSE Facilit y:[facility] Start: 01-16-2021 End: 01-16-2021 ambulatory JEF [facility]Ute 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 Start: 01-09-2021 End: 01-09-2021 Patient encounter procedure Jef Sierra DPM Work Phone: [facility] Comment on above: Ulcer of left foot w ith fat layer exposed (HCC) (Primary Dx) Start: 01-02-2021 End: 01-02-2021 ambulatory [facility] Start: 01-02-2021 End: 01-02-2021 Patient encounter procedure Jef Sierra DPM Work Phone: [facility] Comment on above: Non-pressure chronic ulcer of other part of left foot with fat layer exposed (HCC) (Primary Dx); Ulcer of left foot with fat layer exposed (HCC) Start: 01-01-2021 ambulatory NERI Elena SANTA Facilit y:[facility] Start: 12-27-2020 ambulatory NERI SANTA Facilit y:[facility] Start: 12-27-2020 ambulatory SHARON Harrison cility:[facility] Start: 12-26-2020 ambulatory SELF SELF [facility] Start: 12-19-2020 End: 12-19-2020 ambulatory [facility] Start: 12-19-2020 End: 12-19-2020 Patient encounter procedure Jef Sierra DPM Work Phone: [facility] Comment on above: Ulcer of left foot w ith fat layer exposed (HCC) (Primary Dx) Start: 12-13-2020 ambulatory KRYSTYNAAGUSTO BUSBY Facility :[facility] Start: 12-13-2020 ambulatory SHARON Harrison cility:[facility] Start: 12-06-2020 Orders Only Jef unger DPM Work Phone: [facility] Start: 12-05-2020 End: 12-05-2020 ambulatory [facility] Start: 11-16-2020 End: 11-16-2020 ambulatory [facility]A [facility] Start: 10-17-2020 End: 10-21-2020 ambulatory [facility]ELA [facility] Start: 10-17-2020 End: 10-17-2020 Office outpatient visit 15 minutes Jef Sierra DPSallie Work Phone: [facility] Comment on above: Chronic ulcer of gre at toe of left foot, unspecified ulcer stage (HCC) (Primary Dx) Start: 10-10-2020 End: 10-10-2020 Office outpatient visit 25 minutes Olga Lidia Matos MD Work Phone: [facility] Comment on above: Primary open angle g laucoma (POAG) of right eye, severe stage (Primary Dx); Primary open angle glaucoma (POAG) of left eye, severe stage; Diabetic macular edema; Pseudophakia Start: 10-03-2020 End: 10-03-2020 ambulatory [id number] Start: 10-03-2020 End: 10-03-2020 Patient encounter procedure Franck Mtz MD Work Phone: [facility] Comment on above: CIDP (chronic inflam matory demyelinating polyneuropathy) (Primary Dx) Start: 09-26-2020 End: 09-26-2020 Subsequent hospital visit by physician Franck Mtz MD Work Phone: [facility] Comment on above: Arrived Start: 09-26-2020 End: 09-26-2020 Office outpatient visit 25 minutes Franck Mtz MD Work Phone: [facility] Comment on above: CIDP (chronic inflam matory demyelinating polyneuropathy) (Primary Dx) Start: 09-21-2020 End: 09-21-2020 ambulatory [id number] Start: 09-21-2020 End: 09-21-2020 Patient encounter procedure Neri P House DO Work Phone: [facility] Comment on above: 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 Start: 09-14-2020 End: 09-14-2020 Office outpatient visit 15 minutes Jef Sierra DPM Work Phone: [facility] Comment on above: Great toe pain, left (Primary Dx); Foot abscess, left Start: 09-13-2020 End: 09-13-2020 Chart abstracting Jef Sierra DPM Work Phone: [facility] Comment on above: Asthma, unspecified asthma severity, unspecified whether complicated, unspecified whether persistent; Chronic ulcer of great toe of left foot, unspecified ulcer stage (HCC); Closed displaced fracture of first metatarsal bone of left foot with routine healing; Glaucoma, unspecified glaucoma type, unspecified laterality; High cholesterol; 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); Osteomyelitis, unspecified site, unspecified type (HCC); Thyroid disorder; Ulcer of foot, unspecified laterality, unspecified ulcer stage (HCC); Non-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 (HCC); Non-pressure chronic ulcer of other part of left foot with fat layer exposed (HCC); Non-pressure chronic ulcer of left lower leg with fat layer exposed (HCC); 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) Start: 09-13-2020 End: 09-13-2020 Office outpatient visit 25 minutes Luis Miguel Kaur MD Work Phone: [facility] Comment on above: Type 2 diabetes bety itus with diabetic polyneuropathy, with long-term current use of insulin (Primary Dx); Acquired hypothyroidism Start: 09-12-2020 ambulatory [facility] Start: 04-25-2020 End: 04-25-2020 Orders Only Kristen Chamberlain Work Phone: [facility] Start: 02-17-2020 End: 02-17-2020 Subsequent hospital visit by physician [facility] Start: 01-27-2020 End: 01-28-2020 Patient encounter procedure NERI SANTA Facility:[facility] Start: 12-22-2019 End: 12-23-2019 Patient encounter procedure NERI SANTA Facility:[facility] Start: 12-20-2019 End: 12-20-2019 Emergency department patient visit NERI SANTA [facility] Start: 12-20-2019 End: 12-20-2019 Emergency department patient visit Andres Lubin Work Phone: [facility] Comment on above: Avulsion of fingerna il, initial encounter (Primary Dx) Start: 05-29-2018 End: 05-29-2018 Emergency department patient visit Jonathan Camara Work Phone: [facility] Comment on above: Cellulitis (Primary Dx) Start: 01-20-2018 End: 01-20-2018 Patient encounter procedure Rich Beltran [facility] Comment on above: Type 2 diabetes bety itus without complication, with long-term current use of insulin Start: 01-06-2018 End: 01-06-2018 Patient encounter Balbina Goss [facility] Comment on above: Appointment Start: 01-05-2018 End: 01-05-2018 Patient encounter Yusra Chnig [facility] Comment on above: Type 2 diabetes bety itus without complication, with long-term current use of insulin (Primary Dx) Start: 01-01-2018 End: 01-01-2018 Office outpatient visit 25 minutes Luis Miguel Kaur Work Phone: [facility] Comment on above: Type 2 diabetes bety itus with diabetic polyneuropathy, without long-term current use of insulin (Primary Dx); Mixed hyperlipidemia Start: 01-01-2018 End: 01-01-2018 Patient encounter Historical Provider Neurology Madie Velazquez Start: 12-16-2017 Patient encounter procedure Pili Gilliam Facility:[place] Start: 11-25-2017 Patient encounter procedure Pili Gilliam Facility:[place] Start: 11-25-2017 End: 11-25-2017 Patient encounter Pili Gilliam Work Phone: [facility] Start: 11-03-2017 Patient encounter procedure Pili Gilliam Facility:[place] Start: 08-22-2017 End: 08-22-2017 Patient encounter procedure Joanne Garvin Facility:[place] Start: 08-14-2017 Patient encounter procedure Joanne Garvin Facility:[place] Start: 06-13-2017 Patient encounter procedure Martha Yan Facility:[place] Start: 06-04-2017 End: 06-05-2017 Emergency department patient visit Ariel Franklin Facility:[place] Start: 04-11-2017 End: 04-11-2017 Ambulatory Martha Harris [place] Work Phone: [facility] Start: 04-07-2017 Office/outpatient olivier solis, level 3 Pili Gilliam Work Phone: [facility] Start: 03-28-2017 End: 03-28-2017 Ambulatory Pili Gilliam Work Phone: [facility] Start: 03-14-2017 End: 03-14-2017 Ambulatory Pilisarai Juárez Mane Work Phone: [facility] Procedures Date Procedure Procedure Detail Performing Clinician Start: 03-29-2023 [facility] CBC W/ AUTO DIFF D aram Shen MD Work Phone: Start: 04-02-2022 Radex spine cervical 4 or 5 views Alisia Crump DO Work Phone: Start: 12-04-2021 Radex spine cervical 2 or 3 views Alie Loza GUEST RELATIONS COORDINATOR - LAND SURVEYING MANAGER Work Phone: Start: 08-20-2021 Antibody screen JERRY BARRAZA Comment on above: Performed By: #### [id number] #### [address] Start: 08-10-2021 Glucose blood reagent strip Aniket Padron MD Work Phone: Start: 08-10-2021 End: 08-10-2021 Assay of magnesium Tami Vega MD Work Phone: Start: 08-10-2021 BASIC METABOLIC PANE L W/ REFLEX TO MG FOR LOW K Tami Gary VIVEROS Work Phone: Start: 08-09-2021 Glucose blood reagent strip Aniket Padron MD Work Phone: Start: 08-09-2021 Glucose blood reagent strip Aniket Padron MD Work Phone: Start: 08-09-2021 End: 08-09-2021 Glucose blood reagent strip Aniekt paez MD Work Phone: Start: 08-08-2021 Glucose blood reagent strip Aniket Padron MD Work Phone: Start: 08-08-2021 Glucose blood reagent strip Aniket Padron MD Work Phone: Start: 08-08-2021 Blood count complete auto&auto difrntl wbc Aniket Padron MD Work Phone: Start: 08-08-2021 Glucose blood reagent strip Aniket Padron MD Work Phone: Start: 08-08-2021 BASIC METABOLIC PANE L W/ REFLEX TO MG FOR LOW K Tami Vega MD Work Phone: Start: 08-08-2021 Glucose blood reagent strip Aniket Padron MD Work Phone: Start: 08-07-2021 Glucose blood reagent strip Aniket Padron MD Work Phone: Start: 08-07-2021 Glucose blood reagent strip Aniket Padron MD Work Phone: Start: 08-07-2021 Assay of thyroid sti mulating hormone tsh Guy Ochoa MD Work Phone: Start: 08-07-2021 Radex spine cervical 2 or 3 views Kam Loera GUEST RELATIONS COORDINATOR - LAND SURVEYING MANAGER Work Phone: Start: 08-07-2021 Glucose blood reagent strip Aniket Padron MD Work Phone: Start: 08-07-2021 Ecg routine ecg w/le ast 12 lds i&r only Missy Moore MD Work Phone: Start: 08-07-2021 Glucose blood reagent strip Aniket Padorn MD Work Phone: Start: 08-07-2021 Glucose blood reagent strip Aniket Padron MD Work Phone: Start: 08-07-2021 Glucose blood reagent strip Aniket Padron MD Work Phone: Start: 08-07-2021 Glucose blood reagent strip Aniket Padron MD Work Phone: Start: 08-06-2021 Glucose blood reagent strip Aniket Padron MD Work Phone: Start: 08-06-2021 Glucose blood reagent strip Aniket Padron MD Work Phone: Start: 08-06-2021 Glucose blood reagent strip Aniket Padron MD Work Phone: Start: 08-06-2021 Glucose blood reagent strip Aniket Padron MD Work Phone: Start: 08-06-2021 End: 08-06-2021 Glucose blood reagent strip Aniket paez MD Work Phone: Start: 08-06-2021 BASIC METABOLIC PANE L W/ REFLEX TO MG FOR LOW K Adilson Coyle MD Work Phone: Start: 08-06-2021 End: 08-06-2021 Blood count complete auto&auto difrntl wbc Adilson Coyle MD Work Phone: Start: 08-05-2021 Glucose blood reagent strip Aniket Padron MD Work Phone: Start: 08-05-2021 Glucose blood reagent strip Aniket Padron MD Work Phone: Start: 08-05-2021 Glucose blood reagent strip Aniket Padron MD Work Phone: Start: 08-05-2021 ARTERIAL BLOOD GAS, POC Jeff Willoughby MD Work Phone: Start: 08-05-2021 End: 08-05-2021 Assay of magnesium Adilson Coyle MD Work Phone: Start: 08-05-2021 BASIC METABOLIC PANE L W/ REFLEX TO MG FOR LOW K Adilson Coyle MD Work Phone: Start: 08-05-2021 Glucose blood reagent strip Jeff Willoughby MD Work Phone: Start: 08-04-2021 Glucose blood reagent strip Jeff Willoughby MD Work Phone: Start: 08-04-2021 Glucose blood reagent strip Jeff Willoughby MD Work Phone: Start: 08-04-2021 Glucose blood reagent strip Jeff Willoughby MD Work Phone: Start: 08-04-2021 Assay of lipase Philip Coyle MD Work Phone: Start: 08-04-2021 BASIC METABOLIC PANE L W/ REFLEX TO MG FOR LOW K Adilson Coyle MD Work Phone: Start: 08-04-2021 Glucose blood reagent strip Jeff Willoughby MD Work Phone: Start: 08-03-2021 Glucose blood reagent strip Jeff Willoughby MD Work Phone: Start: 08-03-2021 Glucose blood reagent strip Jeff Willoughby MD Work Phone: Start: 08-03-2021 Glucose blood reagent strip Jeff Willoughby MD Work Phone: Start: 08-03-2021 Glucose blood reagent strip Jeff Willoughby MD Work Phone: Start: 08-03-2021 BASIC METABOLIC PANE L W/ REFLEX TO MG FOR LOW K Adilson Coyle MD Work Phone: Start: 08-03-2021 ARTERIAL BLOOD GAS, POC Jeff Willoughby MD Work Phone: Start: 08-03-2021 End: 08-03-2021 Gluc bld gluc mntr dev cleared fda spec home use Jeff Willoughby MD Work Phone: Start: 08-03-2021 Glucose blood reagent strip Jeff Willoughby MD Work Phone: Start: 08-02-2021 Glucose blood reagent strip Jeff Willoughby MD Work Phone: Start: 08-02-2021 Glucose blood reagent strip Jeff Willoughby MD Work Phone: Start: 08-02-2021 Glucose blood reagent strip Jeff Willoughby MD Work Phone: Start: 08-02-2021 Glucose blood reagent strip Jeff Willoughby MD Work Phone: Start: 08-02-2021 Glucose blood reagent strip Jeff Willoughby MD Work Phone: Start: 08-02-2021 ARTERIAL BLOOD GAS, POC Jeff Willoughby MD Work Phone: Start: 08-02-2021 End: 08-02-2021 Assay of magnesium Adilson Coyle MD Work Phone: Start: 08-02-2021 BASIC METABOLIC PANE L W/ REFLEX TO MG FOR LOW K Adilson Coyle MD Work Phone: Start: 08-01-2021 Glucose blood reagent strip Jeff Willoughby MD Work Phone: Start: 08-01-2021 Glucose blood reagent strip Jeff Willoughby MD Work Phone: Start: 08-01-2021 Glucose blood reagent strip Jeff Willoughby MD Work Phone: Start: 08-01-2021 End: 08-01-2021 Assay of magnesium Adilson Coyle MD Work Phone: Start: 08-01-2021 BASIC METABOLIC PANE L W/ REFLEX TO MG FOR LOW K Adilson Coyle MD Work Phone: Start: 07-31-2021 Glucose blood reagent strip Jeff Willoughby MD Work Phone: Start: 07-31-2021 Blood count hemoglobin Adilson Coyle MD Work Phone: Start: 07-31-2021 Glucose blood reagent strip Jeff Willoughby MD Work Phone: Start: 07-31-2021 End: 07-31-2021 Glucose blood reagent strip Jeff Willoughby MD Work Phone: Start: 07-31-2021 End: 07-31-2021 Assay of magnesium Adilson Coyle MD Work Phone: Start: 07-31-2021 BASIC METABOLIC PANE L W/ REFLEX TO MG FOR LOW K Adilson Coyle MD Work Phone: Start: 07-31-2021 Glucose blood reagent strip Jeff Willoughby MD Work Phone: Start: 07-30-2021 End: 07-30-2021 Blood count hemoglobin Adilson caballero MD Work Phone: Start: 07-30-2021 Glucose blood reagent strip Jeff Willoughby MD Work Phone: Start: 07-30-2021 Antibody screen Darrell pher Hauger DO Work Phone: Start: 07-30-2021 End: 07-30-2021 TRACHEOTOMY Erica Santiago MD Work Phone: Start: 07-30-2021 BASIC METABOLIC PANE L W/ REFLEX TO MG FOR LOW K Adilson Coyle MD Work Phone: Start: 07-30-2021 Blood count complete auto&auto difrntl wbc Adilson Coyle MD Work Phone: Start: 07-30-2021 ARTERIAL BLOOD GAS, POC Jeff Willoughby MD Work Phone: Start: 07-29-2021 Blood count hemoglobin Missy Moore MD Work Phone: Start: 07-29-2021 End: 07-29-2021 Transfusion of packed red blood cells Tete Melgar MD Work Phone: Start: 07-29-2021 Blood count hemoglobin Adilson Coyle MD Work Phone: Start: 07-29-2021 Glucose blood reagent strip Jeff Willoughby MD Work Phone: Start: 07-29-2021 Blood typing serologic abo Tete Melgar MD Work Phone: Start: 07-29-2021 Glucose blood reagent strip Jeff Willoughby MD Work Phone: Start: 07-29-2021 BASIC METABOLIC PANE L W/ REFLEX TO MG FOR LOW K Adilson Coyle MD Work Phone: Start: 07-29-2021 End: 07-29-2021 Blood count complete auto&auto difrntl wbc Adilson Coyle MD Work Phone: Start: 07-29-2021 ARTERIAL BLOOD GAS, POC Jeff Willoughby MD Work Phone: Start: 07-28-2021 Glucose blood reagent strip Jeff Willoughby MD Work Phone: Start: 07-28-2021 End: 07-28-2021 Calcium ionized Tete Melgar MD Work Phone: Start: 07-28-2021 Glucose blood reagent strip Jeff Willoughby MD Work Phone: Start: 07-28-2021 Glucose blood reagent strip Jeff Willoughby MD Work Phone: Start: 07-28-2021 BASIC METABOLIC PANE L W/ REFLEX TO MG FOR LOW K Adilson Coyle MD Work Phone: Start: 07-28-2021 Blood count complete auto&auto difrntl wbc Adilson Coyle MD Work Phone: Start: 07-28-2021 ARTERIAL BLOOD GAS, POC Jeff Willoughby MD Work Phone: Start: 07-28-2021 Gluc bld gluc mntr d ev cleared fda spec home use Jeff Willoughby MD Work Phone: Start: 07-27-2021 End: 07-27-2021 Blood count hemoglobin Adilson caballero MD Work Phone: Start: 07-27-2021 Glucose blood reagent strip Jeff Willoughby MD Work Phone: Start: 07-27-2021 Glucose blood reagent strip Jeff Willoughby MD Work Phone: Start: 07-27-2021 End: 07-27-2021 Calcium ionized Tete Melgar MD Work Phone: Start: 07-27-2021 BASIC METABOLIC PANE L W/ REFLEX TO MG FOR LOW K Adilson Coyle MD Work Phone: Start: 07-27-2021 Blood count complete auto&auto difrntl wbc Adilson Coyle MD Work Phone: Start: 07-27-2021 ARTERIAL BLOOD GAS, POC Jeff Willoughby MD Work Phone: Start: 07-27-2021 End: 07-27-2021 Gluc bld gluc mntr dev cleared fda spec home use Jeff Willoughby MD Work Phone: Start: 07-27-2021 Glucose blood reagent strip Jeff Willoughby MD Work Phone: Start: 07-26-2021 Glucose blood reagent strip Jeff Willoughby MD Work Phone: Start: 07-26-2021 Blood count hemoglobin Adilson Coyle MD Work Phone: Start: 07-26-2021 Mri spinal canal cer vical w/o & w/contr matrl Fabi Page MD Work Phone: Start: 07-26-2021 Glucose blood reagent strip Jeff Willoughby MD Work Phone: Start: 07-26-2021 Radiologic exam ches t single view Missy Moore MD Work Phone: Start: 07-26-2021 Glucose blood reagent strip Jeff Willoughby MD Work Phone: Start: 07-26-2021 EXTUBATION Adilson Coyle MD Work Phone: Start: 07-26-2021 Glucose blood reagent strip Jeff Willoughby MD Work Phone: Start: 07-26-2021 End: 07-26-2021 Assay of magnesium Johnny Robledo MD Work Phone: Start: 07-26-2021 BASIC METABOLIC PANE L W/ REFLEX TO MG FOR LOW K Adilson Coyle MD Work Phone: Start: 07-26-2021 ARTERIAL BLOOD GAS, POC Jeff Willoughby MD Work Phone: Start: 07-25-2021 Blood count hemoglobin Missy Moore MD Work Phone: Start: 07-25-2021 End: 07-25-2021 Assay of lactate Alaina Kumar DO Work Phone: Start: 07-25-2021 EEG REPORT Joaquin To natalie Hamm MD Work Phone: Start: 07-25-2021 End: 07-25-2021 Blood count hemoglobin Missy Diallo Work Phone: Start: 07-25-2021 Ct angio abd&plvis c ntrst mtrl w/wo cntrst img Xin Grove MD Work Phone: Start: 07-25-2021 Ct cervical spine w/ o contrast material Kam Prado GUEST RELATIONS COORDINATOR - SCREED OPERATOR Work Phone: Start: 07-25-2021 End: 07-25-2021 Transfusion of packed red blood cells Keri Hart MD Work Phone: Start: 07-25-2021 Radiologic exam abdomen 1 view Keri Hart MD Work Phone: Start: 07-25-2021 End: 07-25-2021 Blood count hemoglobin Missy Diallo Work Phone: Start: 07-25-2021 Electroencephalogram w/rec awake&drowsy Sindy Sunshine GUEST RELATIONS COORDINATOR - LAND SURVEYING MANAGER Work Phone: Start: 07-25-2021 End: 07-25-2021 Calcium ionized Manolo J Federico Diallo Work Phone: Start: 07-25-2021 BASIC METABOLIC PANE L W/ REFLEX TO MG FOR LOW K Adilson Coyle MD Work Phone: Start: 07-25-2021 Cortisol total Xin Grove MD Work Phone: Start: 07-25-2021 ARTERIAL BLOOD GAS, POC Jeff Willoughby MD Work Phone: Start: 07-25-2021 End: 07-25-2021 Gluc bld gluc mntr dev cleared fda spec home use Jeff Willoughby MD Work Phone: Start: 07-24-2021 End: 07-24-2021 Blood count hemoglobin Missy Diallo Work Phone: Start: 07-24-2021 Glucose blood reagent strip Jeff Willoughby MD Work Phone: Start: 07-24-2021 End: 07-24-2021 Assay of lactate Missy Moore MD Work Phone: Start: 07-24-2021 Glucose blood reagent strip Jeff Willoughby MD Work Phone: Start: 07-24-2021 End: 07-24-2021 Transfusion of packed red blood cells Missy Moore MD Work Phone: Start: 07-24-2021 Virus centrifuge enh ncd id imfluor stain ea Jany Francis GUEST RELATIONS COORDINATOR - LAND SURVEYING MANAGER Work Phone: Start: 07-24-2021 End: 07-24-2021 Blood typing serologic abo Missy meade MD Work Phone: Start: 07-24-2021 ARTERIAL BLOOD GAS, POC Jeff Willoughby MD Work Phone: Start: 07-24-2021 End: 07-24-2021 Assay of haptoglobin quantitative Missy Moore MD Work Phone: Start: 07-24-2021 Hepatic function panel Missy Moore MD Work Phone: Start: 07-24-2021 Iadna s aureus methi cillin resist amp probe tq Seth Stokes MD Work Phone: Start: 07-24-2021 Radiologic exam ches t single view Vale Schmidt MD Work Phone: Start: 07-24-2021 Ct head/brain w/o co ntrast material Vale Schmidt MD Work Phone: Start: 07-24-2021 Ct thorax w/contrast material Chris Lassiter MD Work Phone: Start: 07-24-2021 Glucose blood reagent strip Silver Carmona MD Work Phone: Start: 07-24-2021 Radiologic exam ches t single view Chris Lassiter MD Work Phone: Start: 07-24-2021 BASIC METABOLIC PANE L W/ REFLEX TO MG FOR LOW K Adilson Coyle MD Work Phone: Start: 07-23-2021 Glucose blood reagent strip Silver Carmona MD Work Phone: Start: 07-23-2021 Glucose blood reagent strip Johnny Robledo MD Work Phone: Start: 07-23-2021 Glucose blood reagent strip Johnny Robledo MD Work Phone: Start: 07-23-2021 Glucose blood reagent strip Johnny Robledo MD Work Phone: Start: 07-23-2021 BASIC METABOLIC PANE L W/ REFLEX TO MG FOR LOW K Adilson Coyle MD Work Phone: Start: 07-22-2021 Glucose blood reagent strip Johnny Robledo MD Work Phone: Start: 07-22-2021 Glucose blood reagent strip Johnny Robledo MD Work Phone: Start: 07-22-2021 Glucose blood reagent strip Johnny Robledo MD Work Phone: Start: 07-22-2021 Radiologic exam ches t single view Carlos Liu MD Work Phone: Start: 07-22-2021 Glucose blood reagent strip Johnny Robledo MD Work Phone: Start: 07-22-2021 Culture bacterial bl ood aerobic w/id isolates Johnny Robledo MD Work Phone: Start: 07-22-2021 BASIC METABOLIC PANE L W/ REFLEX TO MG FOR LOW K Adilson Coyle MD Work Phone: Start: 07-22-2021 End: 07-22-2021 LACTATE, SEPSIS Johnny Robledo MD Work Phone: Start: 07-22-2021 CULTURE, BLOOD 1 Dimas Robledo MD Work Phone: Start: 07-21-2021 Glucose blood reagent strip Johnny Robledo MD Work Phone: Start: 07-21-2021 Glucose blood reagent strip Johnny Robledo MD Work Phone: Start: 07-21-2021 Glucose blood reagent strip Johnny Rolbedo MD Work Phone: Start: 07-21-2021 BASIC METABOLIC PANE L W/ REFLEX TO MG FOR LOW K Adilson Coyle MD Work Phone: Start: 07-21-2021 End: 07-21-2021 Blood count complete automated Johnny north MD Work Phone: Start: 07-20-2021 Glucose blood reagent strip Johnny Robledo MD Work Phone: Start: 07-20-2021 Glucose blood reagent strip Johnny Robledo MD Work Phone: Start: 07-20-2021 Assay of troponin quantitative Vale Papaganti MD Work Phone: Start: 07-20-2021 End: 07-20-2021 Assay of troponin quantitative Vale rios MD Work Phone: Start: 07-20-2021 Glucose blood reagent strip Johnny Robledo MD Work Phone: Start: 07-20-2021 Ecg routine ecg w/le ast 12 lds trcg only w/o i&r Deborah Castro MD Work Phone: Start: 07-20-2021 Assay of magnesium Bran tavia Robledo MD Work Phone: Start: 07-20-2021 BASIC METABOLIC PANE L W/ REFLEX TO MG FOR LOW K Adilson Coyle MD Work Phone: Start: 07-20-2021 Radiologic exam ches t single view Deborah Castro MD Work Phone: Start: 07-19-2021 Radiologic exam abdomen 1 view Deborah Castro MD Work Phone: Start: 07-19-2021 Glucose blood reagent strip Johnny Robledo MD Work Phone: Start: 07-19-2021 Glucose blood reagent strip Johnny Robledo MD Work Phone: Start: 07-19-2021 Electrolyte panel Jaguar Robledo MD Work Phone: Start: 07-19-2021 Glucose blood reagent strip Johnny Robledo MD Work Phone: Start: 07-19-2021 Radiologic exam abdomen 1 view Johnny Robledo MD Work Phone: Start: 07-19-2021 End: 07-19-2021 Electrolyte panel Johnny Robledo MD Work Phone: Start: 07-19-2021 BASIC METABOLIC PANE L W/ REFLEX TO MG FOR LOW K Adilson Coyle MD Work Phone: Start: 07-18-2021 End: 07-18-2021 Electrolyte panel Johnny Robledo MD Work Phone: Start: 07-18-2021 Radiologic exam abdomen 1 view Johnny Robledo MD Work Phone: Start: 07-18-2021 Urinalysis microscopic only Carlos Liu MD Work Phone: Start: 07-18-2021 Urnls dip stick/tabl et rgnt auto w/o microscopy Carlos Liu MD Work Phone: Start: 07-18-2021 End: 07-18-2021 Electrolyte panel Johnny Robledo MD Work Phone: Start: 07-18-2021 SPECIMEN REJECTION Donato Robledo MD Work Phone: Start: 07-18-2021 Glucose blood reagent strip Johnny Robledo MD Work Phone: Start: 07-18-2021 Radiologic exam swal low function contrast study Johnny Robledo MD Work Phone: Start: 07-18-2021 Electrolyte panel Jaguar Robledo MD Work Phone: Start: 07-18-2021 End: 07-18-2021 Assay of magnesium Tami Vega MD Work Phone: Start: 07-18-2021 BASIC METABOLIC PANE L W/ REFLEX TO MG FOR LOW K Tami Vega MD Work Phone: Start: 07-17-2021 Glucose blood reagent strip Johnny Robledo MD Work Phone: Start: 07-17-2021 End: 07-17-2021 Electrolyte panel Becki Chang MD Work Phone: Start: 07-17-2021 Assay of osmolality blood Addy Horton MD Work Phone: Start: 07-17-2021 Glucose blood reagent strip Johnny Robledo MD Work Phone: Start: 07-17-2021 Blood count complete auto&auto difrntl wbc Johnny Robledo MD Work Phone: Start: 07-17-2021 Culture bacterial bl ood aerobic w/id isolates Johnny Robledo MD Work Phone: Start: 07-17-2021 LACTATE, SEPSIS Johnny Robledo MD Work Phone: Start: 07-17-2021 CULTURE, BLOOD 1 Dimas Robledo MD Work Phone: Start: 07-17-2021 End: 07-17-2021 Assay of magnesium Tami Vega MD Work Phone: Start: 07-17-2021 BASIC METABOLIC PANE L W/ REFLEX TO MG FOR LOW K Tami Gary VIVEROS Work Phone: Start: 07-16-2021 Glucose blood reagent strip Silver Carmona MD Work Phone: Start: 07-16-2021 End: 07-16-2021 Assay of magnesium Becki Chang MD Work Phone: Start: 07-16-2021 End: 07-16-2021 Assay of magnesium Tami Vega MD Work Phone: Start: 07-16-2021 POTASSIUM W/ REFLEX TO MAGNESIUM Tami Vega MD Work Phone: Start: 07-16-2021 Glucose blood reagent strip Silver Carmona MD Work Phone: Start: 07-16-2021 Assay of magnesium Adamaris Vega MD Work Phone: Start: 07-16-2021 BASIC METABOLIC PANE L W/ REFLEX TO MG FOR LOW K Tami Gary VIVEROS Work Phone: Start: 07-16-2021 C-reactive protein Adamaris Vega MD Work Phone: Start: 07-15-2021 Glucose blood reagent strip Silver Carmona MD Work Phone: Start: 07-15-2021 Blood count hemoglobin Becki Chang MD Work Phone: Start: 07-15-2021 Glucose blood reagent strip Silver Carmona MD Work Phone: Start: 07-15-2021 Ct thorax w/o contra st material Becki Chang MD Work Phone: Start: 07-15-2021 Assay of magnesium Sandy Carmona MD Work Phone: Start: 07-15-2021 POTASSIUM W/ REFLEX TO MAGNESIUM Silver Carmona MD Work Phone: Start: 07-15-2021 Glucose blood reagent strip Silver Carmona MD Work Phone: Start: 07-15-2021 SPECIMEN REJECTION Adamaris Vega MD Work Phone: Start: 07-15-2021 Glucose blood reagent strip Silver Carmona MD Work Phone: Start: 07-15-2021 Assay of glutamyltrase gamma Ava Stemple GUEST RELATIONS COORDINATOR - SCREED OPERATOR Work Phone: Start: 07-15-2021 BASIC METABOLIC PANE L W/ REFLEX TO MG FOR LOW K Tami Vega MD Work Phone: Start: 07-15-2021 Hepatic function panel Ava Stemple GUEST RELATIONS COORDINATOR - SCREED OPERATOR Work Phone: Start: 07-15-2021 Ecg routine ecg w/le ast 12 lds trcg only w/o i&r Tami Vega MD Work Phone: Start: 07-14-2021 Glucose blood reagent strip Silver Carmona MD Work Phone: Start: 07-14-2021 Glucose blood reagent strip Silver Carmona MD Work Phone: Start: 07-14-2021 Culture bacterial bl ood aerobic w/id isolates Ava Stemple GUEST RELATIONS COORDINATOR - SCREED OPERATOR Work Phone: Start: 07-14-2021 CULTURE, BLOOD 1 Bridge tte Stemple GUEST RELATIONS COORDINATOR - SCREED OPERATOR Work Phone: Start: 07-14-2021 Assay of magnesium Katt Villarreal MD Work Phone: Start: 07-14-2021 BASIC METABOLIC PANE L W/ REFLEX TO MG FOR LOW K Anthony Villarreal MD Work Phone: Start: 07-13-2021 COVID-19, RAPID Darrell Villarreal MD Work Phone: Start: 07-13-2021 Radiologic exam ches t single view Anthony Villarreal MD Work Phone: Start: 07-13-2021 End: 07-13-2021 CULTURE, BLOOD 1 Anthony Villarreal MD Work Phone: Start: 07-13-2021 End: 07-13-2021 Assay of lactate Anthony Villarreal MD Work Phone: Start: 07-10-2021 Radex spine cervical 2 or 3 views Kam Prado GUEST RELATIONS COORDINATOR - SCREED OPERATOR Work Phone: Start: 07-10-2021 Insj prph ctr vad w/ subq port age 3 yr/> Meka Crowe MD Work Phone (unformatted): [phone] Start: 07-10-2021 COVID-19, RAPID Rufus Argueta MD Work Phone: Start: 07-10-2021 Ct cervical spine w/ o contrast material Kam Prado GUEST RELATIONS COORDINATOR - SCREED OPERATOR Work Phone: Start: 07-10-2021 Glucose blood reagent strip Silver Carmona MD Work Phone: Start: 07-10-2021 Glucose blood reagent strip Silver Carmona MD Work Phone: Start: 07-10-2021 Assay of magnesium Pard paulette Wagner MD Work Phone: Start: 07-10-2021 BASIC METABOLIC PANE L W/ REFLEX TO MG FOR LOW K Hari Wagner MD Work Phone: Start: 07-10-2021 C-reactive protein Neal Argueta MD Work Phone: Start: 07-09-2021 Glucose blood reagent strip Johnny Robledo MD Work Phone: Start: 07-09-2021 COVID-19, RAPID Rufus Argueta MD Work Phone: Start: 07-09-2021 Glucose blood reagent strip Johnny Robledo MD Work Phone: Start: 07-09-2021 Glucose blood reagent strip Johnny Robledo MD Work Phone: Start: 07-09-2021 Glucose blood reagent strip Johnny Robledo MD Work Phone: Start: 07-09-2021 End: 07-09-2021 Glucose blood reagent strip Johnny Robledo MD Work Phone: Start: 07-09-2021 End: 07-09-2021 Glucose blood reagent strip Johnny Robledo MD Work Phone: Start: 07-09-2021 Glucose blood reagent strip Johnny Robledo MD Work Phone: Start: 07-09-2021 BASIC METABOLIC PANE L W/ REFLEX TO MG FOR LOW K Hari Bernard VIVEROS Work Phone: Start: 07-09-2021 Blood count complete auto&auto difrntl wbc Rufus Argueta MD Work Phone: Start: 07-09-2021 C-reactive protein Neal Argueta MD Work Phone: Start: 07-08-2021 Glucose blood reagent strip Johnny Robledo MD Work Phone: Start: 07-08-2021 Glucose blood reagent strip Johnny Robledo MD Work Phone: Start: 07-08-2021 Glucose blood reagent strip Johnny Robledo MD Work Phone: Start: 07-08-2021 Blood count hemoglobin Tami Vega MD Work Phone: Start: 07-08-2021 Assay of magnesium Pard arminp Bernard VIVEROS Work Phone: Start: 07-08-2021 BASIC METABOLIC PANE L W/ REFLEX TO MG FOR LOW K Hari Bernard VIVEROS Work Phone: Start: 07-08-2021 C-reactive protein Neal Argueta MD Work Phone: Start: 07-08-2021 CULTURE, BLOOD 1 Rufus Argueta MD Work Phone: Start: 07-07-2021 Glucose blood reagent strip Johnny Robledo MD Work Phone: Start: 07-07-2021 Glucose blood reagent strip Johnny Robledo MD Work Phone: Start: 07-07-2021 Glucose blood reagent strip Johnny Robledo MD Work Phone: Start: 07-07-2021 CULTURE, BLOOD 1 Rufus Argueta MD Work Phone: Start: 07-07-2021 Antibody screen Pablito Martinez MD Work Phone: Start: 07-07-2021 Urinalysis microscopic only Rufus Argueta MD Work Phone: Start: 07-07-2021 Urnls dip stick/tabl et rgnt auto w/o microscopy Rufus Argueta MD Work Phone: Start: 07-07-2021 BASIC METABOLIC PANE L W/ REFLEX TO MG FOR LOW K Hari Wagner MD Work Phone: Start: 07-07-2021 Blood count complete auto&auto difrntl wbc Rufus Argueta MD Work Phone: Start: 07-07-2021 C-reactive protein Neal Argueta MD Work Phone: Start: 07-06-2021 Cul prsmptv pthgnc o rganism scrn w/colony estimj Alisia Crump DO Work Phone: Start: 07-06-2021 Glucose blood reagent strip Johnny Robledo MD Work Phone: Start: 07-06-2021 Fluoroscopy during operation Alisia Crump DO Work Phone: Start: 07-06-2021 Calcium ionized Johnny Robledo MD Work Phone: Start: 07-06-2021 OPEN HEART PANEL Dimas Robledo MD Work Phone: Start: 07-06-2021 Culture bacterial qu anttative colony count urine Johnny Robledo MD Work Phone: Start: 07-06-2021 End: 07-06-2021 Transfusion of packed red blood cells Nas Canales GUEST RELATIONS COORDINATOR - AQUATICS INSTRUCTOR Start: 07-06-2021 Blood typing serologic abo Johnny Robledo MD Work Phone: Start: 07-06-2021 BLOOD GAS, ARTERIAL Bra jasvir Robledo MD Work Phone: Start: 07-06-2021 Calcium ionized Johnny Robledo MD Work Phone: Start: 07-06-2021 CHLORIDE, WHOLE BLOOD B calvin Robledo MD Work Phone: Start: 07-06-2021 OPEN HEART H&H Johnny Robledo MD Work Phone: Start: 07-06-2021 SODIUM, WHOLE BLOOD Bra jasvir Robledo MD Work Phone: Start: 07-06-2021 End: 07-06-2021 CERVICAL LAMINECTOMY FUSION Alisia Crump DO Work Phone: Start: 07-06-2021 Glucose blood reagent strip Johnny Robledo MD Work Phone: Start: 07-06-2021 Culture bacterial qu anttative colony count urine Rufus Argueta MD Work Phone: Start: 07-06-2021 End: 07-06-2021 Assay of magnesium Hari Wagner MD Work Phone: Start: 07-06-2021 BASIC METABOLIC PANE L W/ REFLEX TO MG FOR LOW K Hari Wagner MD Work Phone: Start: 07-06-2021 C-reactive protein Neal Argueta MD Work Phone: Start: 07-05-2021 Glucose blood reagent strip Johnny Robledo MD Work Phone: Start: 07-05-2021 Mri brain brain stem w/o w/contrast material Sindy Sunshine GUEST RELATIONS COORDINATOR - LAND SURVEYING MANAGER Work Phone: Start: 07-05-2021 Glucose blood reagent strip Johnny Robledo MD Work Phone: Start: 07-05-2021 Radiologic exam swal low function contrast study Sindy Sunshine GUEST RELATIONS COORDINATOR - LAND SURVEYING MANAGER Work Phone: Start: 07-05-2021 End: 07-05-2021 Potassium serum plasma/whole blood Tami Vega MD Work Phone: Start: 07-05-2021 Glucose blood reagent strip Johnny Robledo MD Work Phone: Start: 07-05-2021 Assay of magnesium Tyreed paulette Wagner MD Work Phone: Start: 07-05-2021 BASIC METABOLIC PANE L W/ REFLEX TO MG FOR LOW K Hari Wagner MD Work Phone: Start: 07-05-2021 C-reactive protein Neal el Marcell Argueta MD Work Phone: Start: 07-04-2021 Glucose blood reagent strip Johnny Robledo MD Work Phone: Start: 07-04-2021 Mri spinal canal cer vical w/o & w/contr matrl Kam Prado GUEST RELATIONS COORDINATOR - SCREED OPERATOR Work Phone: Start: 07-04-2021 Glucose blood reagent strip Johnny Robledo MD Work Phone: Start: 07-04-2021 End: 07-04-2021 CULTURE, BLOOD 1 Giulia Bray APR N - LAND SURVEYING MANAGER Work Phone: Start: 07-04-2021 Glucose blood reagent strip Johnny Robledo MD Work Phone: Start: 07-04-2021 End: 07-04-2021 Assay of magnesium Hari Wagner MD Work Phone: Start: 07-04-2021 BASIC METABOLIC PANE L W/ REFLEX TO MG FOR LOW K Hari Wagner MD Work Phone: Start: 07-04-2021 C-reactive protein Neal Argueta MD Work Phone: Start: 07-03-2021 Glucose blood reagent strip Johnny Robledo MD Work Phone: Start: 07-03-2021 Radex spine cervical 2 or 3 views Dustin Sen MD Work Phone: Start: 07-03-2021 Potassium serum plas ma/whole blood Hari Wagner MD Work Phone: Start: 07-03-2021 Glucose blood reagent strip Johnny Robledo MD Work Phone: Start: 07-03-2021 Bone &/joint imaging 3 phase study Meka Crowe MD Work Phone (unformatted): [phone] Start: 07-03-2021 Glucose blood reagent strip Johnny Robledo MD Work Phone: Start: 07-03-2021 Radiologic exam swal low function contrast study Rufus Argueta MD Work Phone: Start: 07-03-2021 Echo tthrc r-t 2d w/ wom-mode compl spec&colr d Meka Crowe MD Work Phone (unformatted): [phone] Start: 07-03-2021 Glucose blood reagent strip Johnny Robledo MD Work Phone: Start: 07-03-2021 Assay of magnesium Sahil Wagner MD Work Phone: Start: 07-03-2021 BASIC METABOLIC PANE L W/ REFLEX TO MG FOR LOW K Hari Wagner MD Work Phone: Start: 07-03-2021 C-reactive protein Neal Argueta MD Work Phone: Start: 07-03-2021 CULTURE, BLOOD Flynn Carmona MD Work Phone: Start: 07-02-2021 End: 07-02-2021 Blood count hemoglobin Hari Wagner MD Work Phone: Start: 07-02-2021 Potassium serum plas ma/whole blood Silver Carmona MD Work Phone: Start: 07-02-2021 Glucose blood reagent strip Silver Carmona MD Work Phone: Start: 07-02-2021 Blood count hemoglobin Hari Wagner MD Work Phone: Start: 07-02-2021 CULTURE, BLOOD 1 Moni Crowe MD Work Phone (unformatted): [phone] Start: 07-02-2021 End: 07-02-2021 Esophagoscopy intra/transmural needle aspirat/bx Hari Wagner MD Work Phone: Start: 07-02-2021 Glucose blood reagent strip Silver Carmona MD Work Phone: Start: 07-02-2021 Potassium serum plas ma/whole blood Rufus Argueta MD Work Phone: Start: 07-02-2021 Glucose blood reagent strip Silver Carmona MD Work Phone: Start: 07-02-2021 Glucose blood reagent strip Silver Carmona MD Work Phone: Start: 07-02-2021 Assay of magnesium Jonathan Steve MD Work Phone: Start: 07-02-2021 BASIC METABOLIC PANE L W/ REFLEX TO MG FOR LOW K Hari Wagner MD Work Phone: Start: 07-02-2021 C-reactive protein Neal Argueta MD Work Phone: Start: 07-01-2021 End: 07-01-2021 Blood count hemoglobin Hari Wagner MD Work Phone: Start: 07-01-2021 WOUND OSTOMY EVAL Sanjuana Carmona MD Work Phone: Start: 07-01-2021 End: 07-01-2021 Glucose blood reagent strip Silver Carmona MD Work Phone: Start: 07-01-2021 Potassium serum plas ma/whole blood Tami Vega MD Work Phone: Start: 07-01-2021 Glucose blood reagent strip Silver Carmona MD Work Phone: Start: 07-01-2021 End: 07-01-2021 Assay of magnesium Tami Vega MD Work Phone: Start: 07-01-2021 Assay of magnesium Jonathan Steve MD Work Phone: Start: 07-01-2021 BASIC METABOLIC PANE L W/ REFLEX TO MG FOR LOW K Hari Wagner MD Work Phone: Start: 07-01-2021 C-reactive protein Neal Argueta MD Work Phone: Start: 07-01-2021 CULTURE, BLOOD 1 Moni Crowe MD Work Phone (unformatted): [phone] Start: 06-30-2021 End: 06-30-2021 Blood count hemoglobin Hari Wagner MD Work Phone: Start: 06-30-2021 Glucose blood reagent strip Silver Carmona MD Work Phone: Start: 06-30-2021 Glucose blood reagent strip Jenifer Jewell MD Work Phone: Start: 06-30-2021 Radex foot complete minimum 3 views Becki Chang MD Work Phone: Start: 06-30-2021 End: 06-30-2021 Blood count hemoglobin Jonathan Steve MD Work Phone: Start: 06-30-2021 CULTURE, BLOOD 1 Moni Crowe MD Work Phone (unformatted): [phone] Start: 06-30-2021 C-reactive protein Neal Argueta MD Work Phone: Start: 06-29-2021 Glucose blood reagent strip Jenifer Jewell MD Work Phone: Start: 06-29-2021 Ct cervical spine w/ contrast material Meka Crowe MD Work Phone (unformatted): [phone] Start: 06-29-2021 Ct thorax w/o contra st material Meka Crowe MD Work Phone (unformatted): [phone] Start: 06-29-2021 Radiologic exam ches t single view Becki Chang MD Work Phone: Start: 06-29-2021 RESPIRATORY PANEL, M ABDIFATAHOSCAR, WITH COVID-19 Becki Chang MD Work Phone: Start: 06-29-2021 Glucose blood reagent strip Jenifer Jewell MD Work Phone: Start: 06-29-2021 Virus centrifuge enh ncd id imfluor stain ea Becki Chang MD Work Phone: Start: 06-29-2021 Electroencephalogram w/rec awake&drowsy Emilie Lopez MD Work Phone: Start: 06-29-2021 Glucose blood reagent strip Jenifer Jewell MD Work Phone: Start: 06-29-2021 End: 06-29-2021 Assay of troponin quantitative Jonathan Galaviz ma, MD Work Phone: Start: 06-29-2021 C-reactive protein Jonathan Steve MD Work Phone: Start: 06-29-2021 Assay of magnesium Lorir jose Jewell MD Work Phone: Start: 06-29-2021 BASIC METABOLIC PANE L W/ REFLEX TO MG FOR LOW K Jenifer Jewell MD Work Phone: Start: 06-29-2021 Tb cell mediated ant ign respnse gamma interferon Jenifer Jewell MD Work Phone: Start: 06-29-2021 Ecg routine ecg w/le ast 12 lds trcg only w/o i&r Becki Chang MD Work Phone: Start: 06-28-2021 Glucose blood reagent strip Jenifer Jewell MD Work Phone: Start: 06-28-2021 GENERIC LABORATORY CHARGE Jenifer Jewell MD Work Phone: Start: 06-28-2021 SPECIMEN REJECTION Subr jose Jewell MD Work Phone: Start: 06-28-2021 Hemoglobin glycosylated a1c Jenifer Jewell MD Work Phone: Start: 06-28-2021 Lipid panel Madai Jewell MD Work Phone: Start: 06-28-2021 Iadna herpes somplx virus amplified probe tq Jenifer Jewell MD Work Phone: Start: 06-28-2021 T. PALLIDUM AB Valentina Jewell MD Work Phone: Start: 06-28-2021 SURGICAL PATHOLOGY REPORT Jenifer Jewell MD Work Phone: Start: 06-28-2021 Cell count misc body fluids w/differential count Dev Méndez MD Work Phone: Start: 06-28-2021 Glucose body fluid o ther than blood Dev Méndez MD Work Phone: Start: 06-28-2021 End: 06-28-2021 Iadna nos amplified probe tq each organism Dev Méndez MD Work Phone: Start: 06-28-2021 MENINGITIS ENCEPHALI TIS PANEL CSF, MOLECULAR Dev Méndez MD Work Phone: Start: 06-28-2021 Cytp flu washgs/brus hings xcpt c/v smrs interpj Dev Méndez MD Work Phone: Start: 06-28-2021 CULTURE, BLOOD 1 Dev Méndez MD Work Phone: Start: 06-28-2021 Ct angiography neck w/contrast/noncontrast Dev Méndez MD Work Phone: Start: 06-28-2021 Assay of lipase Dev Méndez MD Work Phone: Start: 06-28-2021 LACTATE, SEPSIS Israr U l John VIVEROS Work Phone: Start: 06-28-2021 Ecg routine ecg w/le ast 12 lds trcg only w/o i&r Wil Yoel Martinez MD Work Phone: Start: 06-28-2021 Ct abdomen & pelvis w/contrast material Chris Boothe MD Work Phone: Start: 06-28-2021 Drug screen class list a Chris Boothe MD Work Phone: Start: 06-28-2021 End: 06-28-2021 Assay of ammonia Chris Boothe MD Work Phone: Start: 06-28-2021 COVID-19, RAPID Chris peres MD Work Phone: Start: 06-28-2021 End: 06-28-2021 Urinalysis microscopic only Chris Boothe MD Work Phone: Start: 06-28-2021 Urnls dip stick/tabl et rgnt auto w/o microscopy Chris Boothe MD Work Phone: Start: 06-28-2021 Ct head/brain w/o co ntrast material Chris Boothe MD Work Phone: Start: 06-28-2021 Radiologic exam ches t single view Chris Boothe MD Work Phone: Start: 06-28-2021 Assay of acetaminophen Chris Boothe MD Work Phone: Start: 06-28-2021 Assay of ethanol Chris lorenzo MD Work Phone: Start: 06-28-2021 Assay of salicylate Johanna Boothe MD Work Phone: Start: 06-28-2021 Creatine kinase total M jeri Boothe MD Work Phone: Start: 05-11-2021 CBC AND ELECTRONIC DIFF Franck Mtz MD Work Phone: Start: 05-11-2021 Complete blood count with white cell differential, automated Franck Mtz MD Work Phone: Start: 05-11-2021 Creatinine blood Farnck Mtz MD Work Phone: Start: 03-01-2021 Follow-up visit Follow-up NURYS THORNTON Start: 02-14-2021 Ophthalmic examinati on and evaluation Jef Sierra Jr. DPM Work Phone: Start: 12-27-2020 Ophthalmic examinati on and evaluation Jef Sierra Jr. DPM Work Phone: Start: 12-19-2020 APPLY DRESSING Jef Sierra DPSallie Work Phone: Start: 10-11-2020 Computerized ophthal becky imaging optic nerve Olga Lidia Matos MD Work Phone: Start: 10-03-2020 CBC AND ELECTRONIC DIFF Franck Mtz MD Work Phone: Start: 10-03-2020 Complete blood count with white cell differential, automated Franck Mtz MD Work Phone: Start: 10-03-2020 Creatinine blood Franck Mtz MD Work Phone: Start: 09-26-2020 Radiologic examinati on osseous survey compl Franck Mtz MD Work Phone: Start: 09-21-2020 CBC AND ELECTRONIC DIFF Franck Mtz MD Work Phone: Start: 09-21-2020 Complete blood count with white cell differential, automated Franck Mtz MD Work Phone: Start: 09-21-2020 Creatinine blood Franck Mtz MD Work Phone: Start: 12-26-2017 End: 12-26-2017 ORDERS (OUTSIDE) Historical Provider Plan of Treatment Date Care Activity Detail Author Start: 02-07-2028 Pneumococcal Vaccine: Ped or At-Risk (2 of 2 - PPSV23) Pneumococcal Vaccine: Ped or At-Risk (2 of 2 - PPSV23) [facility] Start: 08-12-2023 Lipid panel Lipids [facility] Start: 07-09-2023 End: 07-09-2023 Patient encounter procedure 07/09/2023 9:05 AM EDT Office Visit [facility] [address] [place] [address] Nadia Chaudhary APRN-LAND SURVEYING MANAGER [address] [place] [address] [facility] Start: 10-01-2022 End: 10-01-2022 Patient encounter procedure 10/01/2022 Office Visit Neurosurgery Alisia Crump, DO [address] [place] [address] [facility] Start: 09-27-2022 GFR test (Diabetes, CKD 3-4, OR last GFR 15-59) GFR test (Diabetes, CKD 3-4, OR last GFR 15-59) [facility] [employer] [facility] Start: 09-09-2022 Hemoglobin A1c measurement A1C test (Diabetic or Prediabetic) [facility] Start: 07-24-2022 Screening for malignant neoplasm of colon [facility] Start: 06-30-2022 Diabetic foot examination [facility] Start: 06-28-2022 Lipid panel [facility] Start: 04-12-2022 Diabetic retinal exam Diabetic retinal exam [facility] [employer] [facility] Start: 04-12-2022 Diabetic retinal eye exam EYE EXAM [facility] Start: 04-12-2022 Glaucoma screening Diabetic retinal exam [facility] Start: 04-12-2022 [facility] Start: 01-27-2023 LIPIDS LIPIDS [facility] Start: 03-15-2022 Microalbumin measurement, urine, quantitative URINE MICROALBUMIN TEST [facility] Start: 03-15-2022 Thyroid stimulating hormone measurement TSH [facility] Start: 03-08-2022 End: 03-08-2022 Patient encounter procedure 03/08/2022 Office Visit Neurosurgery Alisia CrumpDO ute [address] [place] [address] [facility] Start: 02-14-2022 Ophthalmic examination and evaluation Ophthalmology Exam [facility] Start: 12-27-2021 Ophthalmic examination and evaluation Ophthalmology Exam [facility] Start: 12-07-2021 End: 12-07-2021 Patient encounter procedure 12/07/2021 Office Visit Urology [facility] Start: 10-18-2021 Influenza vaccination Flu vaccine (Season Ended) [facility] Start: 10-18-2021 [facility] Start: 10-05-2021 Diabetic retinal eye exam [facility]ET[facility] [facility] Start: 09-28-2021 Hemoglobin A1c measurement [facility] Start: 09-17-2021 Influenza vaccination Flu vaccine (#1) [facility] Start: 09-13-2021 Diabetic retinal eye exam DIABETIC EYE EXAM [facility] Start: 09-12-2021 Hemoglobin A1c measurement HBA1C TEST [facility] Start: 09-01-2021 LIPIDS LIPIDS [facility] Start: 09-01-2021 Microalbumin measurement, urine, quantitative URINE MICROALBUMIN TEST [facility] Start: 09-01-2021 Potassium [Moles/volume] in Serum or Plasma POTASSIUM [facility] Start: 08-22-2021 End: 08-22-2021 CERVICAL LAMINECTOMY FUSION [facility] Start: 08-22-2021 End: 08-22-2021 [facility] [place] Start: 08-16-2021 Diabetic retinal eye exam DIABETIC EYE EXAM [facility] Start: 08-08-2021 End: 08-08-2021 Patient encounter procedure 08/08/2021 Office Visit Infectious Diseases Meka Crowe MD [address], [address] [place] [phone] (Work) [facility] Start: 07-31-2021 End: 07-31-2021 Patient encounter procedure 07/31/2021 Office Visit Podiatry Jef Sierra Jr., DPM [address] [place] [address] [facility] Start: 07-25-2021 End: 07-25-2021 Patient encounter procedure 07/25/2021 Office Visit Neurosurgery Alie Loza, GUEST RELATIONS COORDINATOR - LAND SURVEYING MANAGER [address] [place] [address] [facility] Start: 07-17-2021 End: 07-17-2021 Patient encounter procedure 07/17/2021 Office Visit Urology Kevin Quintanilla MD [address] [place] [address] [facility] Start: 07-13-2021 End: 07-10-2022 Basic metabolic 2000 panel - Serum or Plasma [facility] Work Phone: Start: 07-10-2021 End: 07-10-2021 Patient encounter procedure 07/10/2021 Office Visit Neurology Franck Mtz MD [address] [place] [phone] [facility] Start: 07-04-2021 Hemoglobin A1c measurement A1C [facility] Start: 07-04-2021 End: 07-04-2021 ambulatory 07/04/2021 Infusion Visit Neurology [facility]fusion [facility] Start: 06-20-2021 End: 06-20-2021 ambulatory 06/20/2021 Infusion Visit Neurology [facility] Start: 06-18-2021 End: 06-18-2021 Patient encounter procedure 06/18/2021 Office Visit Endocrinology, Diabetes & Metabolism Luis Miguel Kaur MD [address] [place] [address] [facility] Endocrinology Start: 06-07-2021 End: 06-07-2021 Patient encounter procedure 06/07/2021 Office Visit Ophthalmology Sharon Hernandez MD [address] [place] [address] [facility] Start: 06-06-2021 End: 06-06-2021 ambulatory 06/06/2021 Infusion Visit Neurology [facility] Start: 06-05-2021 End: 06-05-2021 Patient encounter procedure 06/05/2021 Office Visit Orthopaedics Yaritza Stanley MD [address] [place] [address] [facility] Start: 05-31-2021 End: 05-31-2021 Patient encounter procedure 05/31/2021 Office Visit Ophthalmology Sharon Hernandez MD [address] [place] [address] [facility] Start: 05-23-2021 End: 05-23-2021 ambulatory 05/23/2021 Infusion Visit Neurology [facility] Start: 05-15-2021 End: 05-15-2021 Patient encounter procedure 05/15/2021 Office Visit Ophthalmology Olga Lidia Matos MD [address] [place] [address] [facility] Start: 04-17-2021 End: 04-17-2021 Patient encounter procedure 04/17/2021 Office Visit Podiatry Jef Sierra Jr., DPSallie [address] [place], [place] [id number] [facility] Start: 03-06-2021 End: 03-06-2021 Patient encounter procedure 03/06/2021 Office Visit Jef Vieira Jr., DPM [address] [place] [address] [facility] Start: 03-04-2021 Hemoglobin A1c measurement [facility] Start: 02-20-2021 End: 02-20-2021 Patient encounter procedure 02/20/2021 Office Visit Jef Vieira Jr., DPSallie [address] [place] [address] [facility] Start: 2021 End: 2021 Patient encounter procedure 2021 Office Visit Jef Vieira Jr., DPM [address] [place] [address] [facility] Start: 01-30-2021 End: 01-30-2021 Patient encounter procedure 01/30/2021 Office Visit PodJef Wagner Jr., DPSallie [address] [place] [address] [facility] Start: 01-23-2021 End: 01-23-2021 Patient encounter procedure 01/23/2021 Office Visit Jef Vieira Jr., DPM [address] [place] [address] [facility] Start: 01-16-2021 End: 01-16-2021 Patient encounter procedure 01/16/2021 Office Visit Jef Vieira Jr., DPSallie [address] [place] [address] [facility] Physician [facility] Start: 01-09-2021 End: 01-09-2021 Patient encounter procedure 01/09/2021 Office Visit Jef Vieira Jr., MARK [address] [place] [address] [facility] Start: 01-01-2021 End: 01-01-2021 Patient encounter procedure 01/01/2021 Office Visit Neurology Nurys Thornton, GUEST RELATIONS COORDINATOR-LAND SURVEYING MANAGER [address] [facility] [place] [address] Neurology [facility] Start: 12-26-2020 End: 12-26-2020 Patient encounter procedure 12/26/2020 Office Visit PodJef Wagner Jr., DPSallie [address] [place] [address] [facility] Start: 12-02-2020 Hemoglobin A1c measurement A1C [facility] Start: 11-30-2020 End: 11-30-2020 Patient encounter procedure 11/30/2020 Office Visit Ophthalmology Sharon Hernandez MD [address] [facility] [address] [place] [address] [facility] Eye [facility] Start: 11-16-2020 End: 11-16-2020 Patient encounter procedure 11/16/2020 Office Visit PodJef Wagner Jr., DPSallie [address] [place] [address] [facility] Start: 11-16-2020 End: 11-16-2020 Patient encounter procedure 11/16/2020 Office Visit Endocrinology, Diabetes & Metabolism Luis Miguel Kaur MD [address] [place] [address] [facility] Endocrinology Start: 11-14-2020 End: 11-14-2020 Patient encounter procedure 11/14/2020 Office Visit Ophthalmology Olga Lidia Matos MD [address] [place] [address] [facility] Start: 11-07-2020 End: 11-07-2020 Patient encounter procedure 11/07/2020 Office Visit Neurology Nurys Thornton, GUEST RELATIONS COORDINATOR-LAND SURVEYING MANAGER [address] [address] Neurology [facility] Start: 10-18-2020 Influenza vaccination [facility] Start: 10-18-2020 End: 10-18-2020 Patient encounter procedure 10/18/2020 Office Visit Ophthalmology Sharon Hernandez MD [address] [facility] [address] [address] [place] [address] [facility] Start: 10-17-2020 End: 10-17-2020 ambulatory 10/17/2020 Infusion Visit Neurology Infusion [facility] Start: 10-10-2020 End: 10-10-2020 Patient encounter procedure 10/10/2020 Office Visit Ophthalmology Olga Lidia Matos MD [address] [place] [address] [facility] Start: 10-06-2020 Pneumococcal 0-64 years Vaccine (2 - PCV) Pneumococcal 0-64 years Vaccine (2 - PCV) [facility] Start: 10-06-2020 [facility] Start: 10-05-2020 End: 10-05-2020 Patient encounter procedure 10/05/2020 Office Visit Ophthalmology Sharon Hernandez MD [address] [place] [phone] [facility] Eye [facility] Start: 10-03-2020 End: 10-03-2020 ambulatory [facility]fusion [facility] Start: 10-03-2020 End: 10-03-2020 Patient encounter procedure 10/03/2020 Office Visit Podiatry Jef Sierra Jr., DPM [address] [place] [address] [phone] [facility] Start: 09-26-2020 End: 09-26-2021 SENSORY MOTOR NEUROPATHY PANEL [facility] Work Phone: Comment on above: Expected: 09/26/2020, Expires: 2 Start: 09-26-2020 End: 09-26-2021 VEGF [facility] Comment on above: Expected: 09/26/2020, Expires: 2 Start: 09-19-2020 End: 09-19-2020 ambulatory 09/19/2020 Infusion Visit Neurology [facility] Start: 09-14-2020 End: 09-14-2020 Patient encounter procedure 09/14/2020 Office Visit Podiatry Jef Sierra Jr., DPM [address] [place] [address] [phone] [facility] Start: 10-19-2019 Influenza vaccination Flu vaccine (#1) [facility] [place] Start: 10-19-2019 Influenza vaccination given Sequential Influenza Vaccine (#1) [facility] Start: 08-25-2019 Creatinine [facility] [place] Start: 08-25-2019 Potassium monitoring Potassium monitoring [facility] [place] Start: 08-12-2019 Urine screening for protein [facility] [employer] Start: 12-26-2018 LIPIDS LIPIDS [facility] Work Phone: Start: 12-19-2018 Diabetic retinal eye exam DIABETIC EYE EXAM [facility] Work Phone: Start: 10-09-2018 Thyrotropin Qn TSH [facility] Work Phone: Start: 08-04-2018 Annual Wellness Visit (AWV) Annual Wellness Visit (AWV) [facility] Start: 07-19-2018 HbA1c (Bld) [Mass fraction] A1C test (Diabetic or Prediabetic) [place], [place] Start: 07-06-2018 End: 07-06-2018 Ambulatory 07/06/2018 Office Visit Neurology Nruys Thornton, GUEST RELATIONS COORDINATOR-LAND SURVEYING MANAGER [address] [address] Neurology [facility] Start: 06-25-2018 Hemoglobin A1c/Hemoglobin.total mass fraction (Bld) HBA1C TEST [facility] Work Phone: Start: 04-04-2018 Protein mass conc MAMMOGRAM SCREENING DISCUSSION [facility] Work Phone: Start: 04-04-2018 Screening mammography MAMMOGRAM SCREENING DISCUSSION [facility] Start: 04-02-2018 End: 04-02-2018 Ambulatory 04/02/2018 Appointment NEUROPHYSIOLOGY Estefania Markham MD [address] [place] [phone] Department of Neurology Start: 03-20-2018 End: 03-20-2018 Ambulatory 03/20/2018 Office Visit Ophthalmology Grace Washington MD [address] [place] [address] [facility] Start: 03-05-2018 End: 03-05-2018 Ambulatory Division of Hematology & Oncology Start: 02-03-2018 End: 02-03-2018 Ambulatory 02/03/2018 Office Visit Sleep Medicine Stefani Estrada MD [address] [place] [address] [address] [place] [address] Department of Sleep Medicine Start: 01-22-2018 End: 01-22-2018 Ambulatory [facility] Start: 10-18-2017 Influenza vaccination [facility] Start: 10-18-2017 Influenza vaccination given SEQUENTIAL INFLUENZA VACCINE (#1) [facility] Start: 06-28-2017 Lipid panel Lipid screen [place], [place] Start: 04-11-2017 Ambulatory 04/11/2017 Hospital Encounter Martha Yan, DPM [address] [place] [address] [phone] [facility] Start: 04-07-2017 Ambulatory 04/07/2017 Office Visit Cardiology Pili Gilliam, DPM [address] [place] [address] [phone] Reji Miramontes III, DO [address] [place] [address] [phone] [facility] Start: 10-18-2016 Influenza vaccination SEQUENTIAL INFLUENZA VACCINE (#1) [facility] Start: 06-25-2014 Diabetic microalbuminuria test Diabetic microalbuminuria test [place], [place] Start: 12-30-2013 Administration of herpes zoster vaccine Zoster Vaccines (2 of 3) [facility] Start: 12-30-2013 Shingles vaccine (1 of 2) Shingles vaccine (1 of 2) [facility] Start: 12-30-2013 Shingles vaccine (2 of 3) Shingles vaccine (2 of 3) [facility] Start: 12-30-2013 Zoster vaccine hzv live for subcutaneous use ZOSTER (SHINGLES) VACCINE (2 of 3) [facility] Start: 12-30-2013 [facility] Start: 2013 Administration of herpes zoster vaccine Zoster Vaccines (1 of 2) [facility] Start: 2013 Colonoscopy COLON CANCER SCREENING DISCUSSION [facility] Work Phone: Start: 2013 Protein mass conc COLON CANCER SCREENING DISCUSSION [facility] Work Phone: Start: 2013 Screening for malignant neoplasm of breast [facility] Start: 2013 Screening for malignant neoplasm of colon [facility] Start: 2013 Shingles Vaccine (1 of 2) Shingles Vaccine (1 of 2) [place] Start: 2013 Zoster vaccine hzv live for subcutaneous use ZOSTER (SHINGLES) VACCINE (1 of 2) [facility] Start: 02-07-2008 Colonoscopy COLORECTAL CANCER SCREENING DISCUSSION [facility] Start: 02-07-2008 Screening for malignant neoplasm of colon [facility] Start: 2003 Screening for malignant neoplasm of breast Mammogram [facility] Start: 1993 Screening for malignant neoplasm of cervix [facility] Start: 02-07-1984 Screening for malignant neoplasm of cervix [facility] Start: 1982 DTaP/Tdap/Td vaccine (1 - Tdap) DTaP/Tdap/Td vaccine (1 - Tdap) [facility] Start: 1982 Hepatitis B vaccine (1 of 3 - Risk 3-dose series) Hepatitis B vaccine (1 of 3 - Risk 3-dose series) [facility] Start: 1982 Third diphtheria, tetanus and acellular pertussis (DTaP) vaccination TDAP (ADULT) [facility] Start: 1982 [facility] Start: 1981 Hepatitis C antibody, confirmatory test Hepatitis C Screening [facility] Start: 1981 Hepatitis C screening [facility] Start: 1981 Microalbumin measurement, urine, quantitative URINE MICROALBUMIN TEST [facility] Work Phone: Start: 1981 Tetanus vaccination TETANUS [facility] Start: 1979 COVID-19 Vaccine (1 of 2) COVID-19 Vaccine (1 of 2) [facility] Start: 1978 HIV screening [facility] Start: 02-07-1976 HIV screening HIV SCREENING DISCUSSION [facility] Work Phone: Start: 1975 Adolescent depression screening assessment Depression Screening (PHQ9) [facility] Start: 1975 COVID-19 Vaccine (1) COVID-19 Vaccine (1) [facility] Start: 1975 Depression Screen Depression Screen [facility] Start: 1975 Depression screening using PHQ-9 (Patient Health Questionnaire 9) score [facility] Start: 1975 [facility] [employer] Start: 1973 Diabetic foot examination (regime/therapy) [facility] Start: 1973 Diabetic retinal exam Diabetic retinal exam [place], [place] Start: 1973 Microalbumin measurement, urine, quantitative Urine Microalbumin [facility] Start: 1973 Ophthalmic examination and evaluation OPHTHALMOLOGY EXAM [facility] Start: 1973 Urine, microalbumin URINE MICROALBUMIN [facility] Start: 1969 Pneumococcal Vaccine: Ped or At-Risk (1 of 2 - PPSV23) Pneumococcal Vaccine: Ped or At-Risk (1 of 2 - PPSV23) [facility] Start: 02-07-1968 COVID-19 Vaccine (1) COVID-19 Vaccine (1) [facility] Start: 02-07-1968 [facility] Start: 1966 History and physical examination, annual for health maintenance Wellness Visit [facility] Start: 1963 COVID-19 Vaccine (#1) COVID-19 Vaccine (#1) [facility] Start: 1963 Annual Wellness Visit (AWV) Annual Wellness Visit (AWV) [facility] Start: 1963 Diabetic foot examination DIABETIC FOOT EXAM [facility] Start: 1963 HbA1c HEMOGLOBIN A1C [facility] Start: 1963 Hemoglobin A1c measurement A1C [facility] Start: 1963 Hepatitis C antibody, confirmatory test HEPATITIS C SCREENING [facility] Start: 1963 HEPATITIS C SCREENING HEPATITIS C SCREENING [facility] Start: 1963 Hepatitis C screening Hepatitis C screen [place], [place] Start: 1963 Protein mass conc Mammogram [facility] Start: 1963 Screening colonoscopy COLONOSCOPY [facility] Start: 1963 Screening for malignant neoplasm of cervix PAP SMEAR [facility] Start: 1963 Screening for malignant neoplasm of colon Colorectal Cancer Screening: Colonoscopy [facility] Start: 1963 Screening mammography Mammogram [facility] Start: 1963 Tetanus vaccination [facility] Start: 1963 [facility] [employer] End: 09-14-2021 Aerobic microbial culture Wound Aerobic Culture Microbiology Routine Foot abscess, left 1 Occurrences starting 09/14/2020 until 09/14/2021 [facility] Comment on above: 1 Occurrences starting 09/14/2020 until 09/14/2021 Aerobic microbial culture Wound Aerobic Culture Microbiology Routine Wound infection Partial thickness burn of single finger of right hand excluding thumb, initial encounter 05/01/2021 3:00 PM EDT [facility] Work Phone: Basic Metabolic Pane l w/ Reflex to MG [facility] Work Phone: Basic Metabolic Pane l w/ Reflex to MG [facility] Work Phone: BLOOD GAS, ARTERIAL [facility] [employer] Work Phone: Blood gas, arterial [facility] [employer] Work Phone: C-reactive protein [facility] [employer] Work Phone: CBC W Auto Different ial panel - Blood [email or web address] Phone: End: 09-08-2021 CBC W Auto Differential panel - Blood [facility] Work Phone: CBC W Auto Different ial panel - Blood [facility] Work Phone: Continuous pulse oximetry [email or web address] Phone: End: 02-17-2020 COVID-19 COVID-19 Lab Routine Once for 1 Occurrences starting 02/17/2020 until 02/17/2020 [employer] [place], [place] Comment on above: Once for 1 Occurrences starting 02/17/20 20 until 02/17/2020 End: 09-08-2021 Creatinine [Mass/volume] in Serum or Plasma [facility] Work Phone: Culture, Anaerobic a nd Aerobic Yobble [facility] Work Phone: End: 06-28-2021 Culture, Blood 1 [employer] Phone: Comment on above: One Time for 1 Occurrences starting 06/17 until 06/28/2021 Culture, Blood 1 [employer] Phone: Culture, Blood 1 [employer] Phone: Culture, Blood 1 [employer] Phone: Culture,Bacterial Culture,Bacter ial Routine 03/14/2017 9:30 AM [email or web address] Work Phone: Glucose [Mass/volume ] in Serum or Plasma [employer] Phone: Glucose [Mass/volume ] in Serum or Plasma [employer] Phone: End: 08-02-2021 Glucose [Mass/volume] in Serum or Plasma [employer] Phone: End: 07-26-2021 Initiate RT Adult Mechanical Ventilation Protocol [employer] Phone: Mechanical Ventilati on with default initial settings [employer] Phone: Oxygen therapy [Mini mum Data Set] [employer] Phone: Oxygen therapy [Mini mum Data Set] [employer] Phone: End: 06-28-2021 PREVIOUS SPECIMEN [employer] Phone: End: 07-15-2021 PREVIOUS SPECIMEN [employer] Phone: End: 07-18-2021 PREVIOUS SPECIMEN [employer] Phone: End: 08-08-2021 PREVIOUS SPECIMEN [employer] Phone: Respiratory Care Evaluation and Treat [employer] Phone: End: 07-05-2021 OPERATIONS RECRUITER clinical swallow evaluation [employer] Phone: End: 06-29-2021 Speech and language therapy regime [facility] [employer] Work Phone: Spontaneous Breathin g Trial (SBT) [facility] Work Phone: End: 07-14-2021 Wound ostomy eval and treat [facility] [employer] Work Phone: Immunizations Immunization Date Immunization Notes Care Provider [facility] 10-07-2019 influenza virus vacc ine, unspecified formulation Jef Sierra Jr., DPM Work Phone: [facility] 10-07-2019 pneumococcal vaccine , unspecified formulation Jef Sierra Jr., DPM Work Phone: [facility] 11-04-2013 influenza virus vacc ine, whole virus Franck Mtz MD Work Phone: [facility] 11-04-2013 influenza, seasonal, injectable Franck Mtz MD Work Phone: [facility] 11-04-2013 zoster vaccine, live Franck Mtz MD Work Phone: [facility] 11-04-2013 influenza virus vacc ine, unspecified formulation Luis Miguel Darmody [facility] Work Phone: 11-04-2013 zoster vaccine, unspecified formulation Franck Mtz MD Work Phone: [facility] 07-29-2012 pneumococcal polysaccharide vaccine, 23 valent Franck Mtz MD Work Phone: [facility] Payers Date Payer Category Payer Medicaid [id number] 2021 Self-pay [id number] 2017 Unknown [id number] 2002 Medicare xxxxxxxxxx [id number] 2002 Medicare [id number] 2002 Medicare [id number] 2002 Unknown xxxxxxxxx 2.16. 840.1.240114.3.249.13 2001 Unknown [id number] 1.2.8 40.308766.1.13.385.2.7.3.489824.315 2001 Unknown [id number]. 1.13.385.2.7.3.380478.315 1963 Unknown [id number] 2.16.8 40.1.123325.3.579.2.902 1963 Unknown [id number] 2.16.84 0.1.300706.3.579.2.593 1963 Unknown [id number] 2.16.84 0.1.526017.3.579.2.593 1963 Unknown [id number] 2.16. 840.1.319877.3.579.2.903 1963 Unknown [id number] 2.16. 840.1.253611.3.579.2.903 1963 Unknown [id number] 2.16. 840.1.653060.3.579.2.903 1963 Unknown [id number] 2.16. 840.1.907297.3.579.2.903 1963 Unknown [id number] 2.16. 840.1.001769.3.579.2.903 1963 Unknown [id number] 2.16. 840.1.600687.3.579.2.903 1963 Unknown [id number] 2.16. 840.1.759908.3.579.2.903 1963 Unknown [id number] 2.16. 840.1.686062.3.579.2.903 1963 Unknown [id number] 2.16. 840.1.657390.3.579.2.903 1963 Unknown [id number] 2.16. 840.1.598152.3.579.2.903 1963 Unknown [id number] 2.16. 840.1.385137.3.579.2.903 1963 Unknown [id number] 2.16. 840.1.076521.3.579.2.903 1963 Unknown [id number] 2.16. 840.1.835036.3.579.2.903 1963 Unknown [id number] 2.16. 840.1.385149.3.579.2.903 1963 Unknown [id number] 2.16. 840.1.229545.3.579.2.903 1963 Unknown [id number] 2.16. 840.1.025011.3.579.2.903 1963 Unknown [id number] 2.16. 840.1.592620.3.579.2.903 1963 Unknown [id number] 2.16.8 40.1.914795.3.579.2.1143 1963 Unknown [id number] 2.16.8 40.1.039038.3.579.2.1143 1963 Unknown [id number] 2.16. 840.1.369736.3.579.2.903 1963 Unknown [id number] 2.16. 840.1.482960.3.579.2.903 1963 Unknown [id number] 2.16. 840.1.228996.3.579.2.903 1963 Unknown [id number] 2.16.8 40.1.156724.3.579.2.647 1965 Unknown [id number] 2.16. 840.1.591835.3.579.2.594 1965 Unknown [id number] 2.16. 840.1.547889.3.579.2.594 1963 Unknown [id number] 2.16. 840.1.884548.3.579.2.594 1963 Unknown [id number] 2.16. 840.1.217146.3.579.2.594 1963 Unknown [id number] 2.16. 840.1.073679.3.579.2.594 1963 Unknown [id number] 2.16. 840.1.236838.3.579.2.594 1963 Unknown [id number] 2.16. 840.1.139887.3.579.2.594 1963 Unknown [id number] 2.16. 840.1.873338.3.579.2.594 1963 Unknown [id number] 2.16. 840.1.405150.3.579.2.594 1963 Unknown [id number] 2.16. 840.1.577693.3.579.2.594 1963 Unknown [id number] 2.16. 840.1.244487.3.579.2.594 1963 Unknown [id number] 2.16. 840.1.638057.3.579.2.594 1963 Unknown [id number] 2.16. 840.1.581767.3.579.2.594 1963 Unknown [id number] 2.16. 840.1.764328.3.579.2.594 1963 Unknown [id number] 2.16. 840.1.433965.3.579.2.594 1963 Unknown [id number] 2.16. 840.1.377367.3.579.2.594 1963 Unknown [id number] 2.16. 840.1.383264.3.579.2.594 1963 Unknown [id number] 2.16. 840.1.902208.3.579.2.594 1963 Unknown [id number] 2.16. 840.1.608129.3.579.2.594 1963 Unknown [id number] 2.16. 840.1.433793.3.579.2.594 1963 Unknown [id number] 2.16. 840.1.799863.3.579.2.594 1963 Unknown [id number] 2.16. 840.1.374770.3.579.2.594 1963 Unknown [id number] 2.16. 840.1.151624.3.579.2.594 1963 Unknown [id number] 2.16.8 40.1.777139.3.579.2.174 1963 Unknown [id number] 2.16. 840.1.423189.3.579.2.175 1963 Unknown [id number] 2.16. 840.1.744575.3.579.2.175 1963 Unknown [id number] 2.16.84 0.1.391171.3.579.2.1259 1963 Unknown [id number] 2.16.8 40.1.715666.3.579.2.727 1963 Unknown [id number] 2.16.8 40.1.666468.3.579.2.727 1963 Unknown [id number] 2.16.8 40.1.609426.3.579.2.727 1963 Unknown [id number] 2.16.8 40.1.590188.3.579.2.727 1963 Unknown [id number] 2.16.8 40.1.706686.3.579.2.727 1963 Unknown [id number] 2.16.8 40.1.513448.3.579.2.727 1963 Unknown [id number] 2.16.8 40.1.185057.3.579.2.727 1963 Unknown [id number] 2.16.8 40.1.577966.3.579.2.727 1963 Unknown [id number] 2.16.8 40.1.146569.3.579.2.727 1963 Unknown [id number] 2.16.8 40.1.061441.3.579.2.727 1963 Unknown [id number] 2.16.8 40.1.668678.3.579.2.727 1963 Unknown [id number] 2.16.8 40.1.876348.3.579.2.727 1963 Unknown [id number] 2.16.8 40.1.879328.3.579.2.727 1963 Unknown [id number] 2.16.8 40.1.243307.3.579.2.727 1965 Unknown [id number] 2.16.8 40.1.350709.3.579.2.727 1961 Medicare [id number] 1961 Unknown [id number] 2.16. 840.1.488248.3.249.13 Medicare [id number] 2.16 .840.1.665310.3.249.13 Unknown [id number] Unknown [id number] 2.16.8 40.1.750395.3.579.2.531 Social History Date Type Detail Facility Start: 04-07-2017 End: 12-04-2021 Tobacco smoking status CTIS Former smoker [facility] End: 02-18-1996 History of tobacco use Current smoker [facility] Start: 1965 Sex Assigned At Not on file [employer] Work Phone: Start: 03-15-2017 End: 03-29-2017 Tobacco smoking status CTIS Unknown if ever smoked [facility] End: 02-18-1996 History of tobacco use Cigarette Smoker [facility] Work Phone: Start: 04-07-2017 Tobacco Comment doesn't rememb er how much she smoked [facility] Start: 04-07-2017 Alcohol Comment rarely [facility] Start: 12-20-2019 End: 12-04-2021 Tobacco use and exposure Never used [facility] Start: 12-20-2019 End: 05-01-2021 Alcohol intake Current drinker of alcohol (finding) [facility] Start: 04-07-2021 End: 07-13-2021 Exposure to SARS-CoV-2 (event) Not sure [facility] Start: 10-05-2017 End: 04-02-2022 Alcohol intake Current non-drinker of alcohol (finding) [place], [place] Start: 1965 Sex Assigned At Female F [facility] Gender identity Not on file [facility] are Medical Equipment Procedure Code Equipment Code Equipment Origin al Text Equipment Identifier Dates 1 strip by Unkno wn route 3 times daily (take before meals). [id number] Start: 10-13-2017 End: 01-07-2018 Lens Au00t0 D 23 .5 - [id number] Start: 12-23-2018 Osc Tissue [place] [id number] Start: 02-23-2020 Implant Opth 250 sq Mm Jo 1 Qdrnt Ins Fx Sut Hl Rcs Knt Cpb - [id number] Start: 02-23-2020 [id number] Start: 07-06-2021 Set Screw Spinal M6 - [id number] Start: 09-25-2021 Clinical Notes 09-13-2020 to 04-07-2023 Ja Daniels RCP - 08/10/2021 5:[address], LD - 08/10/2021 1:44 PM Yvonne Stokes MD - 08/10/2021 11:38 AM Familia Ochoa MD - 08/10/2021 7:54 AM EDTDischarge Instr - TEX Note Date & Type Note Facility 04-07-2023 Note Attempted to call re port at [facility] no answer. Patient left by wheelchair van and was picked up by [facility]. SBAR, discharge summary and med rec faxed over to facility. Fidelia GARVIN updated on POC. [facility] 04-07-2023 Note [facility] Comment on above: Result Comment: Elec tronically Signed By: Wil Putnam DO\.br\Date and Time Signed: 04/07/23 11:18 EST 04-01-2023 Note [facility] Comment on above: Result Comment: Elec tronically Signed By: Marybel Sofia\.br\Date and Time Signed: 04/01/23 16:58 EST\.br\Electronically Co-Signed By: Marybel Sofia\.br\Date and Time Co-Signed: 04/01/23 17:02 EST\.br\Electronically Co-Signed By: JALEEL VIVEROS [facility]\.br\Date and Time Co-Signed: 04/01/23 18:14 EST 03-10-2023 Note [id number] [facility] 01-09-2023 Note [facility] Comment on above: Result Comment: Elec tronically Signed By: Wil Putnam DO\.br\Date and Time Signed: 01/09/23 11:32 EST 01-07-2023 Note [facility] Comment on above: Result Comment: Elec tronically Signed By: Nettie BOOKER DO\.br\Date and Time Signed: 01/07/23 02:17 EST 08-23-2021 Note MR#: [id number] I [facility] Pt. Name: Meg Georges Admitted: 08/19/2021 Discharged: 08/21/2021 Date of : 1965 Physician: Jerry Pozo MD DISCHARGE SUMMARY PRINCIPAL DIAGNOSIS: Bleeding around tracheostomy site. PROCEDURES PERFORMED: During this hospital stay was cauterization of nasal bleed, that was done on 08/20/2021. She also had a PEG tube placed on 08/20/2021. HOSPITAL COURSE: The patient is a 56-year-old female, who presented to the hospital for concerns of bleeding around her tracheostomy site. She had a bronchoscopy done, which showed bleeding in her nares. It was cauterized by Dr. Eun Pozo on 08/20. She had a feeding tube in her naris, which caused some erosion and decided to place a PEG tube. The patient recently was at [facility] in June for complaint of MSSA septicemia. She was trached at that time. She also was found to have an epidural phlegmon, which was causing compression on the cervicomedullary junction. She was given 6 weeks course of antibiotics for osteomyelitis. She had surgery at [facility] postoperatively here after the packing was removed from her nares as she was found to have leaking from her nares. She had a CT facial and brain, which showed a possible CSF leak. Decision was made by our Neurosurgery team and our SICU team to transfer her back to her surgeon since . She was accepted and transferred back to the ICU at [place]. The patient was discharged in stable condition. Electronically Signed by: Jerry Pozo MD 08/23/2021 11:13 A Jerry Pozo MD I have reviewed this discharge summary and confirmed the resident's documentation. Please note that there may be additional documentation from me. Date Dict: 08/22/2021/05:19 P/Mai Grier, [facility] Date Trans: 08/23/2021 07:42 A/genaro [id number] cc: Johny Beckman M.D. [address] [place], [place] [address]Nottowaytila Sánchez. Emergency Medicine [facility] [address] Neri Santa D.O. [address] [place] [address] Fernando Loera. [facility] [address] The [facility] 08-10-2021 History of Present illness Narrative 08/10/21 1750 Surgical Airway (Trach) 07/30/21 Shiley Cuffed Placement Date/Time: 07/30/21 0933 Placed By: In surgery;Licensed provider Placement Verified By: Direct visualization Surgical Airway Type: Tracheostomy Brand: Joni Style: Cuffed Size (mm): 7 Status Secured Site Assessment Clean;Red;Other (comment) (redness and slight breakdown under phlange) Site Care Cleansed;Dried;Dressing applied Ties Assessment Dry;Intact;Secure Trach care completed at 1750 per coordination with RN removing C Collar. Breakdown noted under phlange. Comprehensive Nutrition Assessment Type and Reason for Visit: Reassess Nutrition Recommendations/Plan: Modify Tube Feeding- change to Diabetic Formula goal 45 mL/hr x total of 23 hrs/day (d/t holding TF for synthroid). This will provide 1552 kcal and 85g pro/day. Will continue to monitor TF tolerance/adequacy, meds, labs, and care plans. Modify TF as needed. Malnutrition Assessment: Malnutrition Status: At risk for malnutrition Context: Acute Illness Findings of the 6 clinical characteristics of malnutrition: Energy Intake: No significant decrease in energy intake (with use of TF) Weight Loss: No significant weight loss Body Fat Loss: No significant body fat loss Muscle Mass Loss: Unable to assess Fluid Accumulation: Mild Extremities,Generalized News Agent Strength: Not Performed Nutrition Assessment: Chart reviewed. Peptide Based TF continues at 50 mL/hr via NGT. Tolerating well per RN. Rectal tube remains in place. Labs reviewed: Glu 133-218 mg/dL, K 3.3 mmol/L. Meds include: Lantus, Humalog SS, Synthroid, Culterelle, Imodium PRN, KCl PRN. Nutrition Related Findings: meds/labs reviewed Wound Type: Stage II,Diabetic Ulcer,Surgical Incision Current Nutrition Intake & Therapies: Average Meal Intake: NPO Average Supplements Intake: NPO ADULT TUBE FEEDING; Nasogastric; Peptide Based; Continuous; 50; No; 30; Q 4 hours Current Tube Feeding (TF) Orders: Feeding Route: Nasogastric Formula: Peptide Based Schedule: Continuous Feeding Regimen: 50 mL/hr Current TF & Flush Orders Provides: Peptide Based Formula at 50 mL/hr =1440 kcal and 90 g pro/day Additional Calorie Sources: None Anthropometric Measures: Height: 5' 5 (165.1 cm) [place] Body Weight (IBW): 125 lbs (57 kg) Admission Body Weight: 133 lb 13.1 oz (60.7 kg) Current Body Weight: 130 lb 8.2 oz (59.2 kg), 104.4 % IBW. Weight Source: Bed Scale Current BMI (kg/m2): 21.7 Weight Adjustment For: No Adjustment BMI Categories: Normal Weight (BMI 18.5-24.9) Estimated Daily Nutrient Needs: Energy Requirements Based On: Kcal/kg Weight Used for Energy Requirements: Admission Energy (kcal/day): 1500 kcal/day Weight Used for Protein Requirements: Admission Protein (g/day): 90 g pro/day Method Used for Fluid Requirements: Other (Comment) Fluid (ml/day): per MD Nutrition Diagnosis: Inadequate oral intake related to impaired respiratory function as evidenced by NPO or clear liquid status due to medical condition (need for enteral nutrition support) Nutrition Interventions: Food and/or Nutrient Delivery: Modify Tube Feeding-Change TF to Diabetic Formula goal 45 mL/hr x total of 23 hrs/day (d/t holding TF for synthroid). This will provide 1552 kcal and 85g pro/day. Nutrition Education/Counseling: No recommendation at this time Coordination of Nutrition Care: Continue to monitor while inpatient Goals: Previous Goal Met: Goal(s) Achieved Goals: Meet at least 75% of estimated needs,prior to discharge Nutrition Monitoring and Evaluation: Behavioral-Environmental Outcomes: None Identified Food/Nutrient Intake Outcomes: Enteral Nutrition Intake/Tolerance Physical Signs/Symptoms Outcomes: Biochemical Data,Nutrition Focused Physical Findings,Skin,Weight,Fluid Status or Edema,Diarrhea Discharge Planning: Too soon to determine VANESSA RAYA RD, [place] Contact: Images from the original note were not included. [facility] -Progress Note Today's Date and Time: 08/10/2021, 11:38 AM Impression : Covid 19 Covid test: 07-13-21: Positive Prior MSSA septicemia. Bacteremia persistent from 06-28-21 through 07-04-21 CIDP chronic IVIG therapy - immunosuppressed Ulcer on the left foot Allergy to keflex and avelox - tolerates PNC Prior Erosive changes at craniocervical junction by CT cervical spine 06-29-21 S/P cervical spine surgery on 07-06-21 for relief of pressure from an epidural plegmon, causing compression of cervical medullary junction. Phlegmon found, no abscess. Cultures no growth. Bone described as soft raising concern for osteomyelitis. Hx of Hypothyroidism Diabetes mellitus type 2 Essential hypertension Acute respiratory failure 07/24/21 Recommendations: Covid treatment: Bebtelovimab infusion received 07-15-21 Decadron: Not indicated Remdesivir not indicated Actemra: not indicated Antimicrobial treatment: Continue nafcillin. Tentative Stop date 08-15-21 (6 weeks Rx) Concern for nafcillin induced hypokalemia-Improving KCl replacement for hypokalemia Nausea and vomiting with Cefazolin Sputum culture ordered 07/24/21-Klebsiella heavy growth Levaquin IV 750 mg daily x 7 days initiated 07/25/21. Stop date 08-01-21 Medical Decision Making/Summary/Discussion:08/10/2021 Patient intubated 07/24/21 for acute respiratory failure. MRI Brain and Cervical spine 07/26/21: Findings suggestive of osteomyelitis at the skull base including clivus, occipital condyles and C1 and C2 with associated pathologic fracture of C2. There is a 4.1 cm abscess collection within the posterior paraspinal soft tissues at the level of the skull base. Improved compression of cervical medullary junction from prior MRI Trach placed 07/30/21 per ENT Flex/Ex completed 08/07/21-More displacement of C2 fx noted Infection Control Recommendations [place] Precautions Isolate for Covid until 07-23-21 Antimicrobial Stewardship Recommendations Simplification of therapy Targeted therapy Coordination of Outpatient Care: Estimated Length of IV antimicrobials: 08-15-21 Patient will need Midline Catheter Insertion: no Patient will need PICC line Insertion:no Patient will need: Home IV , Infusion Center, SNF, LTAC: TBD Patient will need outpatient wound care:No Chief complaint/reason for consultation: Covid 19 MSSA septicemia Osteomyelitis cervical spine History of Present Illness: Meg Georges is a 56 y.o.-year-old female who was initially admitted on 07/14/2021. Patient seen at the request of . INITIAL HISTORY: Patient known to our service because of prior admission on 06-28-21 when she presented with altered mentation and was found to have a MSSA septicemia (06-28-21). She was also found to have erosive changes at the craniocervical junction which may be related to arthritis or osteomyelitis by CT cervical spine of 06-29-21. 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 Patient received treatment with Nafcillin. She also underwent cervical spine surgery on 07-06-21 for relief of pressure from an epidural plegmon/abscess, causing compression of cervical medullary junction. Soft bone and phlegmon were found but no definite abscess. Cultures of tissue yielded no growth. Patient was released to receive treatment with Nafcillin through 08-20-21. Patient was transferred back to [facility] on 07-14-21 because of a positive Covid test obtained on 07-13-21 Speech therapy consulted for swallow evaluation. She had aspiration of pudding on 07-19-21 CXR 07-20-21: No acute cardiopulmonary findings Speech therapy suggested NPO with tube feeds Impression CT chest 07/24/21 Consolidation in the lower lobes bilaterally that is worse on the left compared to the right consistent with pneumonia. No acute or chronic pulmonary Impression CT head 07/24/21 No acute intracranial abnormality. Chronic sinusitis most pronounced in the ethmoid air cells and left maxillary sinus. CURRENT EVALUATION : 08/10/2021 The patient was evaluated in the ICU Afebrile VS stable Unchanged The patient remains on mechanical ventilation with 30% FiO2 RR 24-->19 02 sat 100 She is not doing well with weaning trials. Precedex for sedation. She opens eyes to voice and responds to noxious stimuli but is not following commands. Seroquel added for intermittent anxiety Flex/Ex completed 08/07/21-Increased displacement of C2 fracture noted. Neurosurgery with plans for outpatient C 1/2 fusion surgery tentatively on 08/22/21. Nafcillin continues until 08/15/21 We will continue to follow Labs, X rays reviewed: 08/10/2021 BUN: 15-->11-->11 Cr:0.60-->0.55-->0.54 WBC: 9.5-->12.3-->9.5-->9.0 Hb:8.6-->8.0-->8.9 Plat: 565-->514-->576 CRP: 183.3 SARS CoV2: positive 07-13-21 Cultures: Urine: Blood: 06-28-21: MSSA 06-30-21: MSSA 07-01-21: MSSA 07-02-21: MSSA 07-03-21: MSSA 07-04-21: MSSA 07-07-21: No growth 07-08-21: No growth 07-13-21: No growth 07/14/21: No growth 07/17/21: No growth 07-22-21: No growth X 2 Sputum : 07/24/21: Klebsiella Aerogenes Wound: Cervical tissue neck: 07-06-21: No growth 07-26-21 CT Chest 07/24/21 07/15/21 CXR 07/24/21 07-13-21: Impression MRI Brain and cervical spine 07/26/21 Cervical spine MRI: 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 Pathologic fracture of dense process of C2 is associated with its retroflexion and mild narrowing at the craniocervical junction. Mild degenerative findings of cervical spine as described. Brain MRI: There is no acute infarction, intracranial hemorrhage, or intracranial mass lesion. Mild chronic microangiopathic ischemic disease. Mild generalized volume loss. Severe mucosal thickening of frontal ethmoidal maxillary and sphenoid sinuses. Moderate mucosal thickening of mastoid air cells. Impression CT chest/abd/pelvis 07/15/21 Subsegmental atelectasis and consolidation left lower lobe which may represent pneumonia with associated small left pleural effusion which is more apparent. Recommend follow-up until resolution. Mild subsegmental infiltrate or atelectasis right lower lobe. Hazy ground-glass opacities along the right lower lobe and lingula which could represent early infiltrates from multisegmental bronchopneumonia and is more prominent. Small pericardial effusion which is more apparent Borderline enlarged mediastinal lymph nodes which are more prominent and are probably reactive in etiology. Recommend follow-up. I have personally reviewed the past medical history, past surgical history, medications, social history, and family history, and I have updated the database accordingly. 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 LEFT C2 RHIZOTOMY, EXPLORATION OF EPIDURAL PHLEGMON performed by Alisia Crump DO at [facility] OR CHOLECYSTECTOMY EYE SURGERY [address] 250 shunt for open angle glaucoma. MRI compatible- device is all silicone LAMINECTOMY 07/06/2021 Posterior C1, LEFT C2 RHIZOTOMY, EXPLORATION OF EPIDURAL PHLEGMON PICC INSERTION VASCULAR ACCESS TEAM 07/10/2021 SHOULDER SURGERY right TRACHEOSTOMY 07/30/2021 TRACHEOSTOMY N/A 07/30/2021 TRACHEOTOMY performed by Erica Santiago MD at [facility] OR UPPER GASTROINTESTINAL ENDOSCOPY N/A 07/02/2021 EGD ESOPHAGOGASTRODUODENOSCOPY performed by Hari Wagner MD at [facility] Endoscopy Medications: insulin glargine 10 Units SubCUTAneous Nightly QUEtiapine 25 mg Oral Nightly chlordiazePOXIDE 5 mg Oral BID insulin lispro 0-12 Units SubCUTAneous Q6H famotidine 20 mg Per NG tube BID valproic acid 250 mg Per NG tube BID oxyCODONE 10 mg Oral Q6H carvedilol 25 mg Oral BID WC latanoprost 1 drop Both Eyes Nightly lactobacillus 1 capsule Oral Daily with breakfast gabapentin 200 mg Oral TID nafcillin 2,000 mg IntraVENous Q6H [Held by provider] aspirin 325 mg Oral Daily [Held by provider] calcium carbonate-vitamin D3 2 tablet Oral Daily levothyroxine 100 mcg Oral Daily enoxaparin 40 mg SubCUTAneous Daily Social History: Social History Socioeconomic History Marital status: Spouse name: Not on file Number of children: Not on file Years of education: Not on file Highest education level: Not on file Occupational History Not on file Tobacco Use Smoking status: Former Smoker Years: 20.00 Types: Cigarettes Quit date: 10/06/1995 Years since quittin.8 Smokeless tobacco: Never Used Substance and Sexual Activity Alcohol use: No Drug use: No Sexual activity: Not on file Other Topics Concern Not on file Social History Narrative Not on file Social Determinants of Health Financial Resource Strain: Difficulty of Paying Living Expenses: Not on file Food Insecurity: Worried About Running Out of Food in the Last Year: Not on file Ran Out of Food in the Last Year: Not on file Transportation Needs: Lack of Transportation (Medical): Not on file Lack of Transportation (Non-Medical): Not on file Physical Activity: Days of Exercise per Week: Not on file Minutes of Exercise per Session: Not on file Stress: Feeling of Stress : Not on file Social Connections: Frequency of Communication with Friends and Family: Not on file Frequency of Social Gatherings with Friends and Family: Not on file Attends Mosque Services: Not on file Active Member of Clubs or Organizations: Not on file Attends Club or Organization Meetings: Not on file Marital Status: Not on file Intimate Partner Violence: Fear of Current or Ex-Partner: Not on file Emotionally Abused: Not on file Physically Abused: Not on file Sexually Abused: Not on file Housing Stability: Unable to Pay for Housing in the Last Year: Not on file Number of Places Lived in the Last Year: Not on file Unstable Housing in the Last Year: Not on file Family History: Family History Problem Relation Age of Onset Diabetes Mother Cancer Father Allergies: Moxifloxacin, Peg 3350-electrolytes, Tapentadol, Avelox [moxifloxacin hydrochloride], and Cephalexin Review of Systems: Unable to perform ROS, trach to vent Physical Examination : Patient Vitals for the past 8 hrs: BP Temp Temp src Pulse Resp SpO2 08/10/21 1000 133/67 98 19 100 % 08/10/21 0900 (!) 146/75 (!) 107 18 100 % 08/10/21 0800 (!) 176/95 99.9 F (37.7 C) Oral (!) 111 20 100 % 08/10/21 0700 (!) 169/74 (!) 110 18 100 % 08/10/21 0630 (!) 146/72 96 12 100 % 08/10/21 0615 (!) 103 14 100 % 08/10/21 0600 (!) 152/76 97.9 F (36.6 C) Axillary (!) 107 16 100 % 08/10/21 0545 (!) 101 18 100 % 08/10/21 0530 (!) 102/55 79 27 100 % 08/10/21 0515 81 27 100 % 08/10/21 0500 (!) 98/51 85 26 100 % 08/10/21 0445 94 20 100 % 08/10/21 0430 (!) 114/57 91 25 98 % 08/10/21 0415 98 23 99 % 08/10/21 0400 (!) 156/75 98.6 F (37 C) Axillary (!) 101 11 100 % 08/10/21 0345 96 19 100 % General Appearance: Sedated, trach to vent Head: Normocephalic, no trauma ENT: Tracheostomy to vent Neck:Supple, without lymphadenopathy. cervical collar in place Pulmonary/Chest: Clear to auscultation, without wheezes, rales, or rhonchi. Cardiovascular: Regular rate and rhythm without murmurs, rubs, or gallops. Abdomen: Soft, non tender. Bowel sounds normal. All four Extremities: No cyanosis, clubbing, edema, or effusions. Neurologic: She is responding to noxious stimuli Skin: Warm and dry with good turgor. Medical Decision Making -Laboratory: I have independently reviewed/ordered the following labs: CBC with Differential: Recent Labs 08/08/21 0959 08/10/21 0346 WBC 9.5 9.0 HGB 8.0* 8.9* HCT 24.6* 28.0* PLT 514* 576* LYMPHOPCT 23* 25 MONOPCT 7 7 BMP: Recent Labs 08/08/21 0622 08/10/21 0346 NA 141 142 K 3.8 3.3* CL 108* 107 CO2 22 24 BUN 11 11 CREATININE 0.59 0.54 MG -- 1.8 Hepatic Function Panel: No results for input(s): PROT, LABALBU, BILIDIR, IBILI, BILITOT, ALKPHOS, ALT, AST in the last 72 hours. No results for input(s): RPR in the last 72 hours. No results for input(s): HIV in the last 72 hours. No results for input(s): BC in the last 72 hours. Lab Results Component Value Date RBC 2.84 08/10/2021 WBC 9.0 08/10/2021 TURBIDITY Clear 07/18/2021 Lab Results Component Value Date CREATININE 0.54 08/10/2021 GLUCOSE 150 08/10/2021 GLUCOSE 229 06/04/2011 Medical Decision Making-Imaging: Narrative EXAMINATION: 3 XRAY VIEWS OF THE CERVICAL SPINE 08/07/2021 5:09 pm COMPARISON: CT of the cervical spine from 07/25/2021 HISTORY: ORDERING SYSTEM PROVIDED HISTORY: pre-op planning, felx/ext and open mouth odontoid TECHNOLOGIST PROVIDED HISTORY: pre-op planning, felx/ext and open mouth odontoid Reason for Exam: upr at 505pm Suspected osteomyelitis skull base involving C2, C1, clivus and occipital condyles with a pathologic fracture C2, and retroflexion of the dens FINDINGS: Reduced mobility with extension; slightly improved mobility with flexion; ~ 6-7 mm retrolisthesis C1 on C2 (fractured dens in relationship to C2) that does not change significantly with flexion or extension. In neutral position and on extension, there is ~ 38 and 33 degree retroflexion dens respectively (as compared to ~ [address] Retroflexion appears somewhat increased with flexion to 43 degrees. Alignment otherwise unchanged radiographically. Straightening cervical lordosis with multilevel degenerative changes as described elsewhere. Impression Limited mobility, slightly better with flexion. No dynamic instability C1 on C2 retroflexion dens increases by ~ 10 degrees with flexion and 5 degrees with extension (from neutral), as above. Medical Decision [id number]-[id number]-[id number]: SARS-CoV-2, Rapid COVID-19, Rapid Collected: 07/13/21 5040 Result status: Final Resulting lab: [facility] Reference range: Not Detected Value: DETECTED Abnormal Comment: Rapid NAAT: The specimen is POSITIVE for SARS-Cov-2, the novel coronavirus associated with COVID-19. This test has been authorized by the FDA under an Emergency Use Authorization (EUA) for use by authorized laboratories. The ID NOW COVID-19 assay is designed to detect the virus that causes COVID-19 in patients with signs and symptoms of infection who are suspected of COVID-19. An individual without symptoms of COVID-19 and who is not shedding SARS-CoV-2 virus would expect to have a negative (not detected) result in this assay. Fact sheet for Healthcare Providers: https://www.fda.gov/media/680507/downl oad Fact sheet for Patients: https://www.fda.gov/media/990978/downl oad Methodology: Isothermal Nucleic Acid Amplification Culture, Respiratory Order: [id number] Status: Final result Visible to patient: No (not released) Next appt: Today at 02:30 PM in Radiology (STV MRI RM 1 (1.5T)) Specimen Information: Sputum Aspirated 0 Result Notes Component 07/24/21 1525 Specimen Description .ASPIRATED SPUTUM Direct Exam < 10 EPITHELIAL CELLS/LPF Direct Exam >25 NEUTROPHILS/LPF Direct Exam MANY GRAM NEGATIVE RODS Abnormal Culture KLEBSIELLA AEROGENES HEAVY GROWTH Abnormal Culture NO NORMAL ROB Resulting Agency [facility] Susceptibility Klebsiella aerogenes (1) Antibiotic Interpretation Microscan Method Status aztreonam Sensitive <=1 BACTERIAL SUSCEPTIBILITY PANEL BECKY Final ceFAZolin Resistant BACTERIAL SUSCEPTIBILITY PANEL BECKY Final cefTRIAXone Sensitive <=1 BACTERIAL SUSCEPTIBILITY PANEL BECKY Final ciprofloxacin Sensitive <=0.25 BACTERIAL SUSCEPTIBILITY PANEL BECKY Final gentamicin Sensitive <=1 BACTERIAL SUSCEPTIBILITY PANEL BECKY Final tobramycin Sensitive <=1 BACTERIAL SUSCEPTIBILITY PANEL BECKY Final trimethoprim-sulfamethoxazole Sensitive <=20 BACTERIAL SUSCEPTIBILITY PANEL BECKY Final piperacillin-tazobactam Sensitive 16 BACTERIAL SUSCEPTIBILITY PANEL BECKY Final Thank you for allowing us to participate in the care of this patient. Please call with questions. Seth Stokes MD Critical Care Team - Daily Progress Note Date and time: 08/10/2021 7:54 AM Patient's name: Meg Georges Patient's account/billing number: [id number] Patient's Date of : 1965 Age: 56 y.o. Date of Admission: 07/14/2021 4:12 PM Length of stay during current admission: 27 Primary Care Physician: Neri Santa Sr, DO ICU Attending Physician: Dr. Ochoa Code Status: Full Code Reason for ICU admission: covid -19 SUBJECTIVE: OVERNIGHT EVENTS: No acute events overnight; remains on low-dose precedex with prn ativan. Received 1 dose ativan at 10:30 PM. Continue CPAP HISTORY OF PRESENT ILLNESS: Meg Georges is a 56 y.o. 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 Patient was to be discharged this morning however she became unresponsive and tachypneic. ICU team responded to rapid response. Patient was put on nonrebreather. Patient was found to have stridorous respiration and tachypnea was noted. Patient was not responsive to voice, touch, pain. Pupil responses intact bilaterally. Breath sounds decreased left side. Due to stridorous respirations and altered mental status, decision was made to intubate patient. Patient had C1 laminectomy, left C2 rhizotomy, exploration of epidural phlegmon on July 06, 2021. MRI of the cervical spine confirmed small epidural abscess at C1 and C2 level with progressive compression of the brainstem. Blood cultures had been positive for 6 days despite antibiotics, surgery was done to drain abscess. Cultures had no growth. On July 13, 2021 patient was sent to the ED in [facility] from outpatient infusion center where she had been getting 2 units of PRBC and potassium. During the infusion her blood pressure increased to 180s with a headache. Initial labs in the ED noted WBC 8, potassium 2.2, normal LFTs. Magnesium 1.5. Patient was found to be COVID-positive with superimposed lower left lobe pneumonia. Started on Zosyn 3.3 g. Transferred to our hospital on July 14, 2021. Patient received dexamethasone on July 14 and July 15. Patient was given that bebtelovimab infusion on July 15. Cefazolin 07/16-07/18. Nafcillin 1000mg 07/16, increased to 2000 mg on July 18. Cervical phlegmon culture no growth. May have concern for osteomyelitis in the bone. Blood cultures negative to date. Patient was set to be discharged this morning when she became unresponsive and rapid was called. Review of Systems Unable to perform OBJECTIVE: VITAL SIGNS: BP (!) 146/72 Pulse 96 Temp 97.9 F (36.6 C) (Axillary) Resp 12 Ht 5' 5 (1.651 m) Wt 130 lb 8.2 oz (59.2 kg) LMP 12/02/2011 SpO2 100% BMI 21.72 kg/m Tmax over 24 hours: Temp (24hrs), Av.5 F (36.9 C), Min:97.9 F (36.6 C), Max:99 F (37.2 C) Patient Vitals for the past 8 hrs: BP Temp Temp src Pulse Resp SpO2 08/10/21 0630 (!) 146/72 96 12 100 % 08/10/21 0615 (!) 103 14 100 % 08/10/21 0600 (!) 152/76 97.9 F (36.6 C) Axillary (!) 107 16 100 % 08/10/21 0545 (!) 101 18 100 % 08/10/21 0530 (!) 102/55 79 27 100 % 08/10/21 0515 81 27 100 % 08/10/21 0500 (!) 98/51 85 26 100 % 08/10/21 0445 94 20 100 % 08/10/21 0430 (!) 114/57 91 25 98 % 08/10/21 0415 98 23 99 % 08/10/21 0400 (!) 156/75 98.6 F (37 C) Axillary (!) 101 11 100 % 08/10/21 0345 96 19 100 % 08/10/21 0330 (!) 182/82 99 13 100 % 08/10/21 0315 94 17 100 % 08/10/21 0300 127/66 87 24 100 % 08/10/21 0245 84 27 99 % 08/10/21 0242 17 08/10/21 0230 (!) 143/65 (!) 101 21 99 % 08/10/21 0215 (!) 106 20 98 % 08/10/21 0200 (!) 141/63 98.6 F (37 C) Axillary 99 15 100 % 08/10/21 0145 95 22 100 % 08/10/21 0130 132/72 90 22 100 % 08/10/21 0115 (!) 130/57 (!) 103 15 100 % 08/10/21 0100 (!) 140/108 (!) 102 17 100 % 08/10/21 0045 (!) 111 21 99 % 08/10/21 0030 (!) 151/72 100 13 95 % 08/10/21 0015 94 22 94 % 08/10/21 0000 (!) 99/54 98.4 F (36.9 C) Axillary 84 30 100 % Intake/Output Summary (Last 24 hours) at 08/10/2021 0754 Last data filed at 08/10/2021 0747 Gross per 24 hour Intake 1975.41 ml Output 2450 ml Net -474.59 ml Date 08/10/21 0000 - 08/10/21 2359 Shift 4938-3414 2320-0367 9072-7938 24 Hour Total INTAKE I.V.(mL/kg) 169(2.9) 169(2.9) NG/GT(mL/kg) 408(6.9) 408(6.9) IV Piggyback(mL/kg) 200(3.4) 200(3.4) Shift Total(mL/kg) 777(13.1) 777(13.1) OUTPUT Urine(mL/kg/hr) 1150 1150 Stool(mL/kg) 150(2.5) 150(2.5) Shift Total(mL/kg) 1300(22) 1300(22) Weight (kg) 59.2 59.2 59.2 59.2 Wt Readings from Last 3 Encounters: 08/08/21 130 lb 8.2 oz (59.2 kg) 07/13/21 140 lb (63.5 kg) 07/10/21 161 lb 11.2 oz (73.3 kg) Body mass index is 21.72 kg/m . PHYSICAL EXAM: General: No acute distress, trach, on sedation, C-collar in place HEENT: Trach in place. Normocephalic, atraumatic. Cardiovascular: Normal cardiac rate present, sinus rhythm on telemetry. Pulmonary: Mechanical breath sounds bilaterally Abdominal: Soft, nondistended, nontender. No palpable masses. Neuro: Opens eyes to touch. Skin: erythema around trach site MEDICATIONS: Scheduled Meds: QUEtiapine 25 mg Oral Nightly insulin glargine 5 Units SubCUTAneous Nightly chlordiazePOXIDE 5 mg Oral BID insulin lispro 0-12 Units SubCUTAneous Q6H famotidine 20 mg Per NG tube BID valproic acid 250 mg Per NG tube BID oxyCODONE 10 mg Oral Q6H carvedilol 25 mg Oral BID WC latanoprost 1 drop Both Eyes Nightly lactobacillus 1 capsule Oral Daily with breakfast gabapentin 200 mg Oral TID nafcillin 2,000 mg IntraVENous Q6H [Held by provider] aspirin 325 mg Oral Daily [Held by provider] calcium carbonate-vitamin D3 2 tablet Oral Daily levothyroxine 100 mcg Oral Daily enoxaparin 40 mg SubCUTAneous Daily Continuous Infusions: dexmedetomidine 0.4 mcg/kg/hr (08/10/21 0747) sodium chloride 10 mL/hr at 08/10/21 0747 dextrose 75 mL/hr (08/06/211956) PRN Meds: fentanNYL, 50 mcg, Q1H PRN magnesium hydroxide, 30 mL, Daily PRN Loperamide HCl, 2 mg, 4x Daily PRN bisacodyl, 10 mg, Daily PRN LORazepam, 2 mg, Q4H PRN potassium chloride, 40 mEq, PRN Or potassium alternative oral replacement, 40 mEq, PRN Or potassium chloride, 10 mEq, PRN sodium chloride flush, 5-40 mL, PRN ondansetron, 4 mg, Q8H PRN Or ondansetron, 4 mg, Q6H PRN acetaminophen, 650 mg, Q6H PRN Or acetaminophen, 650 mg, Q6H PRN dextrose bolus, 125 mL, PRN Or dextrose bolus, 250 mL, PRN glucagon (rDNA), 1 mg, PRN dextrose, 100 mL/hr, PRN magnesium sulfate, 1,000 mg, PRN SUPPORT DEVICES: [x] Ventilator [] BIPAP [] Nasal Cannula [] Room Air VENT SETTINGS (Comprehensive) (if applicable): PS/CPAP 09/21 Lab Results Component Value Date PHART 7.406 07/06/2021 OVR2PEQ 34.8 07/06/2021 PO2ART 279.0 07/06/2021 BGH4ORM 21.4 07/06/2021 Z2TCQAEA 99.4 07/06/2021 FIO2 30.0 08/05/2021 Lactic Acid: Lab Results Component Value Date LACTA 1.0 07/13/2021 LACTA 1.6 06/28/2021 DATA: Complete Blood Count: Recent Labs 08/08/21 0959 08/10/21 0346 WBC 9.5 9.0 HGB 8.0* 8.9* MCV 97.6 98.6 PLT 514* 576* RBC 2.52* 2.84* HCT 24.6* 28.0* MCH 31.7 31.3 MCHC 32.5 31.8 RDW 17.8* 17.5* MPV 8.9 8.8 PT/INR: Lab Results Component Value Date PROTIME 13.1 07/25/2021 INR 1.2 07/25/2021 PTT: Lab Results Component Value Date APTT 23.9 06/28/2021 Basal Metabolic Profile: Recent Labs 08/08/21 0622 08/10/21 0346 NA 141 142 K 3.8 3.3* BUN 11 11 CREATININE 0.59 0.54 CL 108* 107 CO2 24 Magnesium: Lab Results Component Value Date MG 1.8 08/10/2021 MG 1.8 08/05/2021 MG 1.9 08/04/2021 Phosphorus: Lab Results Component Value Date PHOS 1.9 07/17/2021 S. Calcium: Recent Labs 08/10/21 034 CALCIUM 8.5* S. Ionized Calcium:No results for input(s): IONCA in the last 72 hours. Urinalysis: Lab Results Component Value Date NITRU NEGATIVE 07/18/2021 COLORU Yellow 07/18/2021 PHUR 8.5 07/18/2021 WBCUA 2 TO 5 07/18/2021 RBCUA 20 TO 50 07/18/2021 BACTERIA MANY 07/07/2021 SPECGRAV 1.010 07/18/2021 LEUKOCYTESUR NEGATIVE 07/18/2021 UROBILINOGEN Normal 07/18/2021 BILIRUBINUR NEGATIVE 07/18/2021 GLUCOSEU NEGATIVE 07/18/2021 KETUA SMALL 07/18/2021 CARDIAC ENZYMES: No results for input(s): CKMB, CKMBINDEX, TROPONINI in the last 72 hours. Invalid input(s): CKTOTAL;3 BNP: No results for input(s): BNP in the last 72 hours. LFTS No results for input(s): ALKPHOS, ALT, AST, BILITOT, BILIDIR, LABALBU in the last 72 hours. AMYLASE/LIPASE/AMMONIA No results for input(s): AMYLASE, LIPASE, AMMONIA in the last 72 hours. Last 3 Blood Glucose: Recent Labs 08/08/21 0622 08/10/21 0346 GLUCOSE 193* 150* HgBA1c: Lab Results Component Value Date LABA1C 9.4 06/28/2021 TSH: Lab Results Component Value Date TSH 7.90 08/07/2021 ANEMIA STUDIES No results for input(s): LABIRON, TIBC, FERRITIN, [id number], FOLATE, OCCULTBLD in the last 72 hours. Cultures during this admission: Blood cultures: [] None drawn [x] Negative [] Positive (Details: ) Urine Culture: [x] None drawn [] Negative [] Positive (Details: ) Sputum Culture: [] None drawn [] Negative [x] Positive (Details: 07/25/21 gram- Klebsiella, completed levaquin 7 days) Endotracheal aspirate: [x] None drawn [] Negative [] Positive (Details: ) Chest Xray (08/10/2021): ASSESSMENT: 1. Spinal epidural abscess 2. Pneumonia 3. Odontoid fracture 4. Anemia 5. Psoas hematoma 6. 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; 4.1 cm abscess at level of skull base - continue nafcillin per ID; tentative stop date 08/15/21 S/p flexion/extension c-spine x-ray with NS; C2 fx more displaced; NS plans for outpatient fixation Cardiovascular: Hemodynamically stable MAP goal 65 Echo 07/02/21 - EF 55% HTN - continue coreg 25 bid Pulmonary: Maintain oxygen sats >92% Continue to PS/CPAP through the day; 09/21 Recommend switching to PRVC overnight S/p tracheostomy on 07/30; trach change 08/04/21 Lower lobe bilateral pneumonia,Respiratory culture 07/24 - heavy growth klebsiella aerogens; s/p Levaquin ; stopped 07/31 GI/Nutrition Ulcer Prophylaxis: famotidine 20mg bid Continue tube feeds at goal No indication to check tube feed residuals at this time GI consulted for PEG; not cleared for endoscopy by NS due to C-spine precautions Renal/Fluid/Electrolyte BUN/Cr 11/0.54 Na/K 142/3.3 Every other day BMP UOP 0.6cc/kg/hr overnight ID Afebrile WBC 9.0 CAP treated; s/p levaquin Spinal epidural abscess - continue nafcillin per ID; tentative stop date 08/15/21 Hematology: Hb 8.9 Platelets 576 Every other day CBC Endocrine: Glucose 133 Uncontrolled DM type 2 Medium dose sliding scale 10U lantus nightly Home synthroid DVT Prophylaxis Lovenox Discharge Needs: To LTACH CODE STATUS: Full Code Missy Moore MD Department of Internal Medicine/ Critical care [facility]) 08/10/2021, 7:54 AM Attending Physician Statement I have discussed the care of Meg Georges, including pertinent history and exam findings, with the resident. I have seen and examined the patient and the coffey elements of all parts of the encounter have been performed by me. I agree with the assessment, plan and orders as documented by the resident with additions . Tolerating CPAP trial. Calm on Precedex Moving bilateral upper and lower EXTR Plan to transfer to LTAC She will return for surgical intervention as outpatient Total critical care time caring for this patient with life threatening, unstable organ failure, including direct patient contact, management of life support systems, review of data including imaging and labs, discussions with other team members and physicians at least 30 Min so far today, excluding procedures. Please note that this chart was generated using voice recognition Quickofficeon dictation software. Although every effort was made to ensure the accuracy of this automated dampener, some errors in dampener may have occurred. PALLIATIVE CARE NURSING ASSESSMENT Patient: Meg Georges Room: [facility] [place] [address] Reason For Consult Goals of care evaluation Distress management Guidance and support Facilitate communications Assistance in coordinating care Code Status: Full Code Summary: Pt visit, stable on cpap trial. Awaiting placement to [facility]. Spoke with COURTNEY Santamaria 08/10/21. I gave her suggestions on how to locate Living Will/ Will information. Discussed code classifications again. She confirms understanding and thinks her sister would want to remain full code. Acknowledged and supported Hina in this decision as well as moving forward with transfer to [facility]. Encouraged her to call as needed. Impression: Meg Georges is a 56 y.o. 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 Currently hospitalized for the management of covid 19 infection, MSSA sepsis, odontoid fx. The Palliative Care Team is following to assist with patient and family support and goals of care. Vital Signs Blood pressure 125/66, pulse 94, temperature 98.9 F (37.2 C), temperature source Oral, resp. rate 10, height 5' 5 (1.651 m), weight 130 lb 8.2 oz (59.2 kg), last menstrual period 12/02/2011, SpO2 100 %, not currently . Patient Active Problem List Diagnosis Cellulitis of left finger Altered mental state Encephalitis Encephalopathy CIDP (chronic inflammatory demyelinating polyneuropathy) (HCC) Sepsis (HCC) Bacteremia Hypothyroidism Hypokalemia Type 2 diabetes mellitus with diabetic polyneuropathy (HCC) Primary hypertension Upper GI bleed Non-intractable vomiting Unintentional weight loss Metabolic encephalopathy MSSA (methicillin susceptible Staphylococcus aureus) septicemia (HCC) CRP elevated Bandemia Allergy to multiple antibiotics Pyogenic inflammation of bone (HCC) Acute intractable headache Septic arthritis of cervical spine (HCC) 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 COVID Hypomagnesemia Normocytic anemia Acute respiratory failure with hypoxemia (HCC) Atlantoaxial instability ACP (advance care planning) Goals of care, counseling/discussion Encounter for palliative care Feeding difficulties On tube feeding diet Palliative Interaction: Reviewed course of care and update received from bedside nurse Yolanda. Viewed patient at her bedside. Pt continues on precedex drip. Collar on, trach to vent. Pt tolerating cpap trial. Nurse relates she has been on cpap most of shift. Palliative Care will not attempt to waken or communicate with patient since patient becomes restless with stimulation. VS. Stable. Notes relate plan for transfer to LTACH soon, recommend completion of full course of antibiotic therapy for osteomyelitis through 08/15/21. Plan for C1/2 fusion elective surgery tentatively 08/22/21. 08/10/21: Reviewed chart and called sister Hina. Confirmed that Hina is updated on situation. She is aware of plan to move to [facility] when bed available. She was told her sister is following commands and mouthing words to staff. Support and encouraged Hina. We discussed how things are improving. We discussed surgery when antibiotics are completed. We talked about LTACH. We reviewed code classifications and Hina r/t's she thinks her sister would want full code at present. Let Hina know that we support that decision. Hina asked if we are aware if Meg has a living will or will. I let her know that we do not have anything to do with a personal will. I let her know that I do not see that we have any information on a living will scanned in our system either. Hina relates she has copy of DPOAH and looked through it and does not see a living will portion. I told her that sometimes it is filled out together but sometimes only DPOAH gets filled out. It is possible that she only received copy of DPOAH and not living will. Hina relates patient filled out DPOAH at [facility] in [place]. I suggested that she continue to try to contact Meg's traffic signal repairer but that she could contact [facility] and see if they have Living will documents on fill. Let Hina know that I wish her and Meg well moving forward and they can contact us in the future if we can help with anything. Will continue to follow until discharge. Goals/Plan of care Education/support to staff Education/support to family Discharge planning/helping to coordinate care Communications with primary service Discussing meaning/purpose Continue with current plan of care Code status clarified: Full Code Code status clarified: DNRCC Code status clarified: DNRCCA Validating patient/family distress Continued communication updates discussed living will / financial will with DPOAH, palliative care will continue to follow. DPOAH relates understanding of code classifications and relates she thinks that her sister would want to be Full Code. Supported sister in this, discussed transfer to [facility] soon as bed is available. Wished patient and family well moving forward. Octave Board Racker Leeann UREÑA, RN, ONN-CG [place] Office: [phone] [place] Office: [phone] [facility] Office: [phone] For Symptom Management Clinic scheduling please call [phone] Images from the original note were not included. [facility] -Progress Note Today's Date and Time: 08/09/2021, 10:52 AM Impression : Covid 19 Covid test: 07-13-21: Positive Prior MSSA septicemia. Bacteremia persistent from 06-28-21 through 07-04-21 CIDP chronic IVIG therapy - immunosuppressed Ulcer on the left foot Allergy to keflex and avelox - tolerates PNC Prior Erosive changes at craniocervical junction by CT cervical spine 06-29-21 S/P cervical spine surgery on 07-06-21 for relief of pressure from an epidural plegmon, causing compression of cervical medullary junction. Phlegmon found, no abscess. Cultures no growth. Bone described as soft raising concern for osteomyelitis. Hx of Hypothyroidism Diabetes mellitus type 2 Essential hypertension Acute respiratory failure 07/24/21 Recommendations: Covid treatment: Bebtelovimab infusion received 07-15-21 Decadron: Not indicated Remdesivir not indicated Actemra: not indicated Antimicrobial treatment: Continue nafcillin. Tentative Stop date 08-15-21 (6 weeks Rx) Concern for nafcillin induced hypokalemia-Improving KCl replacement for hypokalemia Nausea and vomiting with Cefazolin Sputum culture ordered 07/24/21-Klebsiella heavy growth Levaquin IV 750 mg daily x 7 days initiated 07/25/21. Stop date 08-01-21 Medical Decision Making/Summary/Discussion:08/09/2021 Patient intubated 07/24/21 for acute respiratory failure. MRI Brain and Cervical spine 07/26/21: Findings suggestive of osteomyelitis at the skull base including clivus, occipital condyles and C1 and C2 with associated pathologic fracture of C2. There is a 4.1 cm abscess collection within the posterior paraspinal soft tissues at the level of the skull base. Improved compression of cervical medullary junction from prior MRI Trach placed 07/30/21 per ENT Flex/Ex completed 08/07/21-More displacement of C2 fx noted Infection Control Recommendations [place] Precautions Isolate for Covid until 07-23-21 Antimicrobial Stewardship Recommendations Simplification of therapy Targeted therapy Coordination of Outpatient Care: Estimated Length of IV antimicrobials: 08-15-21 Patient will need Midline Catheter Insertion: no Patient will need PICC line Insertion:no Patient will need: Home IV , Infusion Center, SNF, LTAC: TBD Patient will need outpatient wound care:No Chief complaint/reason for consultation: Covid 19 MSSA septicemia Osteomyelitis cervical spine History of Present Illness: Meg Georges is a 56 y.o.-year-old female who was initially admitted on 07/14/2021. Patient seen at the request of . INITIAL HISTORY: Patient known to our service because of prior admission on 06-28-21 when she presented with altered mentation and was found to have a MSSA septicemia (06-28-21). She was also found to have erosive changes at the craniocervical junction which may be related to arthritis or osteomyelitis by CT cervical spine of 06-29-21. 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 Patient received treatment with Nafcillin. She also underwent cervical spine surgery on 07-06-21 for relief of pressure from an epidural plegmon/abscess, causing compression of cervical medullary junction. Soft bone and phlegmon were found but no definite abscess. Cultures of tissue yielded no growth. Patient was released to receive treatment with Nafcillin through 08-20-21. Patient was transferred back to [facility] on 07-14-21 because of a positive Covid test obtained on 07-13-21 Speech therapy consulted for swallow evaluation. She had aspiration of pudding on 07-19-21 CXR 07-20-21: No acute cardiopulmonary findings Speech therapy suggested NPO with tube feeds Impression CT chest 07/24/21 Consolidation in the lower lobes bilaterally that is worse on the left compared to the right consistent with pneumonia. No acute or chronic pulmonary Impression CT head 07/24/21 No acute intracranial abnormality. Chronic sinusitis most pronounced in the ethmoid air cells and left maxillary sinus. CURRENT EVALUATION : 08/09/2021 The patient was evaluated in the ICU Afebrile VS stable Intermittent tachycardia The patient remains on mechanical ventilation with 30% FiO2 RR 24 02 sat 100 She is not doing well with weaning trials. Precedex for sedation. She opens eyes to voice and responds to noxious stimuli but is not following commands. Seroquel added for intermittent anxiety Flex/Ex completed 08/07/21-Increased displacement of C2 fracture noted. Neurosurgery with plans for outpatient C 1/2 fusion surgery tentatively on 08/22/21. Nafcillin continues until 08/15/21 We will continue to follow Labs, X rays reviewed: 08/09/2021 BUN: 15-->11-->11 Cr:0.60-->0.55-->0.59 WBC: 9.5-->12.3-->9.5 Hb:8.6-->8.0 Plat: 565-->514 CRP: 183.3 SARS CoV2: positive 07-13-21 Cultures: Urine: Blood: 06-28-21: MSSA 06-30-21: MSSA 07-01-21: MSSA 07-02-21: MSSA 07-03-21: MSSA 07-04-21: MSSA 07-07-21: No growth 07-08-21: No growth 07-13-21: No growth 07/14/21: No growth 07/17/21: No growth 07-22-21: No growth X 2 Sputum : 07/24/21: Klebsiella Aerogenes Wound: Cervical tissue neck: 07-06-21: No growth 07-26-21 CT Chest 07/24/21 07/15/21 CXR 07/24/21 07-13-21: Impression MRI Brain and cervical spine 07/26/21 Cervical spine MRI: 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 Pathologic fracture of dense process of C2 is associated with its retroflexion and mild narrowing at the craniocervical junction. Mild degenerative findings of cervical spine as described. Brain MRI: There is no acute infarction, intracranial hemorrhage, or intracranial mass lesion. Mild chronic microangiopathic ischemic disease. Mild generalized volume loss. Severe mucosal thickening of frontal ethmoidal maxillary and sphenoid sinuses. Moderate mucosal thickening of mastoid air cells. Impression CT chest/abd/pelvis 07/15/21 Subsegmental atelectasis and consolidation left lower lobe which may represent pneumonia with associated small left pleural effusion which is more apparent. Recommend follow-up until resolution. Mild subsegmental infiltrate or atelectasis right lower lobe. Hazy ground-glass opacities along the right lower lobe and lingula which could represent early infiltrates from multisegmental bronchopneumonia and is more prominent. Small pericardial effusion which is more apparent Borderline enlarged mediastinal lymph nodes which are more prominent and are probably reactive in etiology. Recommend follow-up. I have personally reviewed the past medical history, past surgical history, medications, social history, and family history, and I have updated the database accordingly. 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 LEFT C2 RHIZOTOMY, EXPLORATION OF EPIDURAL PHLEGMON performed by Alisia Crump DO at [facility] OR CHOLECYSTECTOMY EYE SURGERY [address] shunt for open angle glaucoma. MRI compatible- device is all silicone LAMINECTOMY 07/06/2021 Posterior C1, LEFT C2 RHIZOTOMY, EXPLORATION OF EPIDURAL PHLEGMON PICC INSERTION VASCULAR ACCESS TEAM 07/10/2021 SHOULDER SURGERY right TRACHEOSTOMY 07/30/2021 TRACHEOSTOMY N/A 07/30/2021 TRACHEOTOMY performed by Erica Santiago MD at [facility] OR UPPER GASTROINTESTINAL ENDOSCOPY N/A 07/02/2021 EGD ESOPHAGOGASTRODUODENOSCOPY performed by Hari Wagner MD at [facility] Endoscopy Medications: QUEtiapine 25 mg Oral Nightly insulin glargine 5 Units SubCUTAneous Nightly chlordiazePOXIDE 5 mg Oral BID insulin lispro 0-12 Units SubCUTAneous Q6H metoclopramide 5 mg IntraVENous Q6H famotidine 20 mg Per NG tube BID valproic acid 250 mg Per NG tube BID oxyCODONE 10 mg Oral Q6H carvedilol 25 mg Oral BID WC latanoprost 1 drop Both Eyes Nightly lactobacillus 1 capsule Oral Daily with breakfast gabapentin 200 mg Oral TID nafcillin 2,000 mg IntraVENous Q6H [Held by provider] aspirin 325 mg Oral Daily [Held by provider] calcium carbonate-vitamin D3 2 tablet Oral Daily levothyroxine 100 mcg Oral Daily enoxaparin 40 mg SubCUTAneous Daily Social History: Social History Socioeconomic History Marital status: Spouse name: Not on file Number of children: Not on file Years of education: Not on file Highest education level: Not on file Occupational History Not on file Tobacco Use Smoking status: Former Smoker Years: 20.00 Types: Cigarettes Quit date: 10/06/1995 Years since quittin.8 Smokeless tobacco: Never Used Substance and Sexual Activity Alcohol use: No Drug use: No Sexual activity: Not on file Other Topics Concern Not on file Social History Narrative Not on file Social Determinants of Health Financial Resource Strain: Difficulty of Paying Living Expenses: Not on file Food Insecurity: Worried About Running Out of Food in the Last Year: Not on file Ran Out of Food in the Last Year: Not on file Transportation Needs: Lack of Transportation (Medical): Not on file Lack of Transportation (Non-Medical): Not on file Physical Activity: Days of Exercise per Week: Not on file Minutes of Exercise per Session: Not on file Stress: Feeling of Stress : Not on file Social Connections: Frequency of Communication with Friends and Family: Not on file Frequency of Social Gatherings with Friends and Family: Not on file Attends Mosque Services: Not on file Active Member of Clubs or Organizations: Not on file Attends Club or Organization Meetings: Not on file Marital Status: Not on file Intimate Partner Violence: Fear of Current or Ex-Partner: Not on file Emotionally Abused: Not on file Physically Abused: Not on file Sexually Abused: Not on file Housing Stability: Unable to Pay for Housing in the Last Year: Not on file Number of Places Lived in the Last Year: Not on file Unstable Housing in the Last Year: Not on file Family History: Family History Problem Relation Age of Onset Diabetes Mother Cancer Father Allergies: Moxifloxacin, Peg 3350-electrolytes, Tapentadol, Avelox [moxifloxacin hydrochloride], and Cephalexin Review of Systems: Unable to perform ROS, trach to vent Physical Examination : Patient Vitals for the past 8 hrs: BP Temp Temp src Pulse Resp SpO2 08/09/21 0732 (!) 103 24 100 % 08/09/21 0700 (!) 143/72 (!) 106 21 08/09/21 0645 135/70 99 20 08/09/21 0600 (!) 86/46 98.1 F (36.7 C) 79 15 100 % 08/09/21 0530 127/61 92 17 100 % 08/09/21 0430 (!) 90/44 84 15 100 % 08/09/21 0400 (!) 152/73 98 F (36.7 C) Axillary (!) 104 20 100 % 08/09/21 0330 (!) 145/72 98 21 100 % 08/09/21 0314 78 16 100 % 08/09/21 0300 (!) 98/52 76 15 100 % General Appearance: Sedated, trach to vent Head: Normocephalic, no trauma ENT: Tracheostomy to vent Neck:Supple, without lymphadenopathy. cervical collar in place Pulmonary/Chest: Clear to auscultation, without wheezes, rales, or rhonchi. Cardiovascular: Regular rate and rhythm without murmurs, rubs, or gallops. Abdomen: Soft, non tender. Bowel sounds normal. All four Extremities: No cyanosis, clubbing, edema, or effusions. Neurologic: She is responding to noxious stimuli Skin: Warm and dry with good turgor. Medical Decision Making -Laboratory: I have independently reviewed/ordered the following labs: CBC with Differential: Recent Labs 08/08/21 0959 WBC 9.5 HGB 8.0* HCT 24.6* PLT 514* LYMPHOPCT 23* MONOPCT 7 BMP: Recent Labs 08/08/21 0622 NA 141 K 3.8 CL 108* CO2 22 BUN 11 CREATININE 0.59 Hepatic Function Panel: No results for input(s): PROT, LABALBU, BILIDIR, IBILI, BILITOT, ALKPHOS, ALT, AST in the last 72 hours. No results for input(s): RPR in the last 72 hours. No results for input(s): HIV in the last 72 hours. No results for input(s): BC in the last 72 hours. Lab Results Component Value Date RBC 2.52 08/08/2021 WBC 9.5 08/08/2021 TURBIDITY Clear 07/18/2021 Lab Results Component Value Date CREATININE 0.59 08/08/2021 GLUCOSE 193 08/08/2021 GLUCOSE 229 06/04/2011 Medical Decision Making-Imaging: Narrative EXAMINATION: 3 XRAY VIEWS OF THE CERVICAL SPINE 08/07/2021 5:09 pm COMPARISON: CT of the cervical spine from 07/25/2021 HISTORY: ORDERING SYSTEM PROVIDED HISTORY: pre-op planning, felx/ext and open mouth odontoid TECHNOLOGIST PROVIDED HISTORY: pre-op planning, felx/ext and open mouth odontoid Reason for Exam: upr at 505pm Suspected osteomyelitis skull base involving C2, C1, clivus and occipital condyles with a pathologic fracture C2, and retroflexion of the dens FINDINGS: Reduced mobility with extension; slightly improved mobility with flexion; ~ 6-7 mm retrolisthesis C1 on C2 (fractured dens in relationship to C2) that does not change significantly with flexion or extension. In neutral position and on extension, there is ~ 38 and 33 degree retroflexion dens respectively (as compared to ~ [address] Retroflexion appears somewhat increased with flexion to 43 degrees. Alignment otherwise unchanged radiographically. Straightening cervical lordosis with multilevel degenerative changes as described elsewhere. Impression Limited mobility, slightly better with flexion. No dynamic instability C1 on C2 retroflexion dens increases by ~ 10 degrees with flexion and 5 degrees with extension (from neutral), as above. Medical Decision Kzoixl-Vhitcavb-Fbplo: SARS-CoV-2, Rapid COVID-19, Rapid Collected: 07/13/21 2493 Result status: Final Resulting lab: [email or web address] Reference range: Not Detected Value: DETECTED Abnormal Comment: Rapid NAAT: The specimen is POSITIVE for SARS-Cov-2, the novel coronavirus associated with COVID-19. This test has been authorized by the FDA under an Emergency Use Authorization (EUA) for use by authorized laboratories. The ID NOW COVID-19 assay is designed to detect the virus that causes COVID-19 in patients with signs and symptoms of infection who are suspected of COVID-19. An individual without symptoms of COVID-19 and who is not shedding SARS-CoV-2 virus would expect to have a negative (not detected) result in this assay. Fact sheet for Healthcare Providers: https://www.fda.gov/media/213103/downl oad Fact sheet for Patients: https://www.fda.gov/media/518043/downl oad Methodology: Isothermal Nucleic Acid Amplification Culture, Respiratory Order: [id number] Status: Final result Visible to patient: No (not released) Next appt: Today at 02:30 PM in Radiology (STV MRI RM 1 (1.5T)) Specimen Information: Sputum Aspirated 0 Result Notes Component 07/24/21 5951 Specimen Description .ASPIRATED SPUTUM Direct Exam < 10 EPITHELIAL CELLS/LPF Direct Exam >25 NEUTROPHILS/LPF Direct Exam MANY GRAM NEGATIVE RODS Abnormal Culture KLEBSIELLA AEROGENES HEAVY GROWTH Abnormal Culture NO NORMAL ROB Resulting Agency [facility] Susceptibility Klebsiella aerogenes (1) Antibiotic Interpretation Microscan Method Status aztreonam Sensitive <=1 BACTERIAL SUSCEPTIBILITY PANEL BECKY Final ceFAZolin Resistant BACTERIAL SUSCEPTIBILITY PANEL BECKY Final cefTRIAXone Sensitive <=1 BACTERIAL SUSCEPTIBILITY PANEL BECKY Final ciprofloxacin Sensitive <=0.25 BACTERIAL SUSCEPTIBILITY PANEL BECKY Final gentamicin Sensitive <=1 BACTERIAL SUSCEPTIBILITY PANEL BECKY Final tobramycin Sensitive <=1 BACTERIAL SUSCEPTIBILITY PANEL BECKY Final trimethoprim-sulfamethoxazole Sensitive <=20 BACTERIAL SUSCEPTIBILITY PANEL BECKY Final piperacillin-tazobactam Sensitive 16 BACTERIAL SUSCEPTIBILITY PANEL BECKY Final Thank you for allowing us to participate in the care of this patient. Please call with questions. Seth Stokes MD Critical Care Team - Daily Progress Note Date and time: 08/09/2021 8:12 AM Patient's name: Meg Georges Patient's account/billing number: [id number] Patient's Date of : 1965 Age: 56 y.o. Date of Admission: 07/14/2021 4:12 PM Length of stay during current admission: 26 Primary Care Physician: Neri Santa Sr, ICU Attending Physician: Dr. Willoughby Code Status: Full Code Reason for ICU admission: No chief complaint on file. covid -19 SUBJECTIVE: OVERNIGHT EVENTS: No acute events overnight; remains on low-dose precedex with prn ativan. Received 1 dose ativan at 10:30 PM. Continue CPAP HISTORY OF PRESENT ILLNESS: Meg Georges is a 56 y.o. 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 Patient was to be discharged this morning however she became unresponsive and tachypneic. ICU team responded to rapid response. Patient was put on nonrebreather. Patient was found to have stridorous respiration and tachypnea was noted. Patient was not responsive to voice, touch, pain. Pupil responses intact bilaterally. Breath sounds decreased left side. Due to stridorous respirations and altered mental status, decision was made to intubate patient. Patient had C1 laminectomy, left C2 rhizotomy, exploration of epidural phlegmon on July 06, 2021. MRI of the cervical spine confirmed small epidural abscess at C1 and C2 level with progressive compression of the brainstem. Blood cultures had been positive for 6 days despite antibiotics, surgery was done to drain abscess. Cultures had no growth. On July 13, 2021 patient was sent to the ED in [facility] from outpatient infusion center where she had been getting 2 units of PRBC and potassium. During the infusion her blood pressure increased to 180s with a headache. Initial labs in the ED noted WBC 8, potassium 2.2, normal LFTs. Magnesium 1.5. Patient was found to be COVID-positive with superimposed lower left lobe pneumonia. Started on Zosyn 3.3 g. Transferred to our hospital on July 14, 2021. Patient received dexamethasone on July 14 and July 15. Patient was given that bebtelovimab infusion on July 15. Cefazolin 07/16-07/18. Nafcillin 1000mg 07/16, increased to 2000 mg on July 18. Cervical phlegmon culture no growth. May have concern for osteomyelitis in the bone. Blood cultures negative to date. Patient was set to be discharged this morning when she became unresponsive and rapid was called. Review of Systems Unable to perform OBJECTIVE: VITAL SIGNS: BP (!) 143/72 Pulse (!) 103 Temp 98.1 F (36.7 C) Resp 24 Ht 5' 5 (1.651 m) Wt 130 lb 8.2 oz (59.2 kg) LMP 12/02/2011 SpO2 100% BMI 21.72 kg/m Tmax over 24 hours: Temp (24hrs), Av.2 F (36.8 C), Min:98 F (36.7 C), Max:98.4 F (36.9 C) Patient Vitals for the past 8 hrs: BP Temp Temp src Pulse Resp SpO2 08/09/21 0732 (!) 103 24 100 % 08/09/21 0700 (!) 143/72 (!) 106 21 08/09/21 0645 135/70 99 20 08/09/21 0600 (!) 86/46 98.1 F (36.7 C) 79 15 100 % 08/09/21 0530 127/61 92 17 100 % 08/09/21 0430 (!) 90/44 84 15 100 % 08/09/21 0400 (!) 152/73 98 F (36.7 C) Axillary (!) 104 20 100 % 08/09/21 0330 (!) 145/72 98 21 100 % 08/09/21 0314 78 16 100 % 08/09/21 0300 (!) 98/52 76 15 100 % 08/09/21 0230 (!) 86/49 75 15 100 % 08/09/21 0200 (!) 89/50 98.2 F (36.8 C) Axillary 75 15 100 % 08/09/21 0130 (!) 83/47 77 15 100 % 08/09/21 0100 (!) 81/47 78 15 100 % 08/09/21 0030 122/63 86 18 100 % Intake/Output Summary (Last 24 hours) at 08/09/2021 0812 Last data filed at 08/09/2021 0752 Gross per 24 hour Intake 1970.15 ml Output 1600 ml Net 370.15 ml Date 08/09/21 0000 - 08/09/21 2359 Shift 3424-1895 1390-0730 1594-4299 24 Hour Total INTAKE I.V.(mL/kg) 191(3.2) 191(3.2) NG/GT(mL/kg) 766(12.9) 766(12.9) IV Piggyback(mL/kg) 195.6(3.3) 195.6(3.3) Shift Total(mL/kg) 1152.6(19.5) 1152.6(19.5) OUTPUT Urine(mL/kg/hr) 650(1.4) 650 Shift Total(mL/kg) 650(11) 650(11) Weight (kg) 59.2 59.2 59.2 59.2 Wt Readings from Last 3 Encounters: 08/08/21 130 lb 8.2 oz (59.2 kg) 07/13/21 140 lb (63.5 kg) 07/10/21 161 lb 11.2 oz (73.3 kg) Body mass index is 21.72 kg/m . PHYSICAL EXAM: General: No acute distress, trach, on sedation, C-collar in place HEENT: Trach in place. Normocephalic, atraumatic. Cardiovascular: Normal cardiac rate present, sinus rhythm on telemetry. Pulmonary: Mechanical breath sounds bilaterally Abdominal: Soft, nondistended, nontender. No palpable masses. Neuro: Opens eyes to touch. Skin: erythema around trach site MEDICATIONS: Scheduled Meds: QUEtiapine 25 mg Oral Nightly insulin glargine 5 Units SubCUTAneous Nightly chlordiazePOXIDE 5 mg Oral BID insulin lispro 0-12 Units SubCUTAneous Q6H metoclopramide 5 mg IntraVENous Q6H famotidine 20 mg Per NG tube BID valproic acid 250 mg Per NG tube BID oxyCODONE 10 mg Oral Q6H carvedilol 25 mg Oral BID WC latanoprost 1 drop Both Eyes Nightly lactobacillus 1 capsule Oral Daily with breakfast gabapentin 200 mg Oral TID nafcillin 2,000 mg IntraVENous Q6H [Held by provider] aspirin 325 mg Oral Daily [Held by provider] calcium carbonate-vitamin D3 2 tablet Oral Daily levothyroxine 100 mcg Oral Daily enoxaparin 40 mg SubCUTAneous Daily Continuous Infusions: dexmedetomidine 0.4 mcg/kg/hr (08/09/21751) sodium chloride 10 mL/hr at 08/09/21751 dextrose 75 mL/hr (08/06/211956) PRN Meds: fentanNYL, 50 mcg, Q1H PRN magnesium hydroxide, 30 mL, Daily PRN Loperamide HCl, 2 mg, 4x Daily PRN bisacodyl, 10 mg, Daily PRN LORazepam, 2 mg, Q4H PRN potassium chloride, 40 mEq, PRN Or potassium alternative oral replacement, 40 mEq, PRN Or potassium chloride, 10 mEq, PRN sodium chloride flush, 5-40 mL, PRN ondansetron, 4 mg, Q8H PRN Or ondansetron, 4 mg, Q6H PRN acetaminophen, 650 mg, Q6H PRN Or acetaminophen, 650 mg, Q6H PRN dextrose bolus, 125 mL, PRN Or dextrose bolus, 250 mL, PRN glucagon (rDNA), 1 mg, PRN dextrose, 100 mL/hr, PRN magnesium sulfate, 1,000 mg, PRN SUPPORT DEVICES: [x] Ventilator [] BIPAP [] Nasal Cannula [] Room Air VENT SETTINGS (Comprehensive) (if applicable): PS/CPAP 8/5 Lab Results Component Value Date PHART 7.406 07/06/2021 [id number] 34.8 07/06/2021 PO2ART 279.0 07/06/2021 BCC0AZI 21.4 07/06/2021 [id number] 99.4 07/06/2021 FIO2 30.0 08/05/2021 Lactic Acid: Lab Results Component Value Date LACTA 1.0 07/13/2021 LACTA 1.6 06/28/2021 DATA: Complete Blood Count: Recent Labs 08/08/21 0959 WBC 9.5 HGB 8.0* MCV 97.6 PLT 514* RBC 2.52* HCT 24.6* MCH 31.7 MCHC 32.5 RDW 17.8* MPV 8.9 PT/INR: Lab Results Component Value Date PROTIME 13.1 07/25/2021 INR 1.2 07/25/2021 PTT: Lab Results Component Value Date APTT 23.9 06/28/2021 Basal Metabolic Profile: Recent Labs 08/08/21621 NA 141 K 3.8 BUN 11 CREATININE 0.59 CL 108* CO2 22 Magnesium: Lab Results Component Value Date MG 1.8 08/05/2021 MG 1.9 08/04/2021 MG 1.7 08/02/2021 Phosphorus: Lab Results Component Value Date PHOS 1.9 07/17/2021 S. Calcium: Recent Labs 08/08/21621 CALCIUM 7.9* S. Ionized Calcium:No results for input(s): IONCA in the last 72 hours. Urinalysis: Lab Results Component Value Date NITRU NEGATIVE 07/18/2021 COLORU Yellow 07/18/2021 PHUR 8.5 07/18/2021 WBCUA 2 TO 5 07/18/2021 RBCUA 20 TO 50 07/18/2021 BACTERIA MANY 07/07/2021 SPECGRAV 1.010 07/18/2021 LEUKOCYTESUR NEGATIVE 07/18/2021 UROBILINOGEN Normal 07/18/2021 BILIRUBINUR NEGATIVE 07/18/2021 GLUCOSEU NEGATIVE 07/18/2021 KETUA SMALL 07/18/2021 CARDIAC ENZYMES: No results for input(s): CKMB, CKMBINDEX, TROPONINI in the last 72 hours. Invalid input(s): CKTOTAL;3 BNP: No results for input(s): BNP in the last 72 hours. LFTS No results for input(s): ALKPHOS, ALT, AST, BILITOT, BILIDIR, LABALBU in the last 72 hours. AMYLASE/LIPASE/AMMONIA No results for input(s): AMYLASE, LIPASE, AMMONIA in the last 72 hours. Last 3 Blood Glucose: Recent Labs 08/08/21621 GLUCOSE 193* HgBA1c: Lab Results Component Value Date LABA1C 9.4 06/28/2021 TSH: Lab Results Component Value Date TSH 7.90 08/07/2021 ANEMIA STUDIES No results for input(s): LABIRON, TIBC, FERRITIN, CITZTXIN75, FOLATE, OCCULTBLD in the last 72 hours. Cultures during this admission: Blood cultures: [] None drawn [x] Negative [] Positive (Details: ) Urine Culture: [x] None drawn [] Negative [] Positive (Details: ) Sputum Culture: [] None drawn [] Negative [x] Positive (Details: 07/25/21 gram- Klebsiella, completed levaquin 7 days) Endotracheal aspirate: [x] None drawn [] Negative [] Positive (Details: ) Chest Xray (08/09/2021): ASSESSMENT: 1. Spinal epidural abscess 2. Pneumonia 3. Odontoid fracture 4. Anemia 5. Psoas hematoma 6. 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; 4.1 cm abscess at level of skull base - continue nafcillin per ID; tentative stop date 08/15/21 S/p flexion/extension c-spine x-ray with NS; C2 fx more displaced; NS plans for outpatient fixation Cardiovascular: Hemodynamically stable MAP goal 65 Echo 07/02/21 - EF 55% HTN - continue coreg 25 bid Pulmonary: Maintain oxygen sats >92% Continue to PS/CPAP through the day; / Recommend switching to PRVC overnight S/p tracheostomy on 07/30; trach change 08/04/21 Lower lobe bilateral pneumonia,Respiratory culture 07/24 - heavy growth klebsiella aerogens; s/p Levaquin ; stopped 07/31 GI/Nutrition Ulcer Prophylaxis: famotidine 20mg bid Continue tube feeds at goal D/c reglan today 08/09 No indication to check tube feed residuals at this time GI consulted for PEG; not cleared for endoscopy by NS due to C-spine precautions Renal/Fluid/Electrolyte BUN/Cr 11/0.59 on 08/08 Na/K 141/3.8 on 08/08 Every other day BMP UOP 0.6cc/kg/hr overnight ID Afebrile WBC 9.5 on 08/08 CAP treated; s/p levaquin Spinal epidural abscess - continue nafcillin per ID; tentative stop date 08/15/21 Hematology: Hb 8.0 on 08/08 Platelets 514 on 08/08 Every other day CBC Endocrine: Glucose 126 Uncontrolled DM type 2 Medium dose sliding scale; required 16U/24h 5U lantus nightly Home synthroid DVT Prophylaxis Lovenox Discharge Needs: pending clinical course; to remain ICU while on PRVC with trach CODE STATUS: Full Code Missy Moore MD Department of Internal Medicine/ Critical care [facility]) 08/09/2021, 8:12 AM Attending Physician Statement I have discussed the care of Meg Georges, including pertinent history and exam findings, with the resident. I have seen and examined the patient and the coffey elements of all parts of the encounter have been performed by me. I agree with the assessment, plan and orders as documented by the resident with additions . Total critical care time caring for this patient with life threatening, unstable organ failure, including direct patient contact, management of life support systems, review of data including imaging and labs, discussions with other team members and physicians at least 30 Min so far today, excluding procedures. Please note that this chart was generated using voice recognition Quickofficeon dictation software. Although every effort was made to ensure the accuracy of this automated dampener, some errors in dampener may have occurred. Physical Therapy Facility/Department: [facility] CAR 3 Physical Therapy Initial Assessment Name: Meg Georges : 1965 Date of Service: 08/08/2021 No chief complaint on file. HISTORY OF PRESENT ILLNESS: Meg Georges is a 56 y.o. 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 Patient was to be discharged this morning however she became unresponsive and tachypneic. ICU team responded to rapid response. Patient was put on nonrebreather. Patient was found to have stridorous respiration and tachypnea was noted. Patient was not responsive to voice, touch, pain. Pupil responses intact bilaterally. Breath sounds decreased left side. Due to stridorous respirations and altered mental status, decision was made to intubate patient. Patient had C1 laminectomy, left C2 rhizotomy, exploration of epidural phlegmon on July 06, 2021. MRI of the cervical spine confirmed small epidural abscess at C1 and C2 level with progressive compression of the brainstem. Blood cultures had been positive for 6 days despite antibiotics, surgery was done to drain abscess. Cultures had no growth. On July 13, 2021 patient was sent to the ED in [facility] from outpatient infusion center where she had been getting 2 units of PRBC and potassium. During the infusion her blood pressure increased to 180s with a headache. Initial labs in the ED noted WBC 8, potassium 2.2, normal LFTs. Magnesium 1.5. Patient was found to be COVID-positive with superimposed lower left lobe pneumonia. Started on Zosyn 3.3 g. Transferred to our hospital on July 14, 2021. Patient received dexamethasone on July 14 and July 15. Patient was given that bebtelovimab infusion on July 15. Cefazolin 07/16-07/18. Nafcillin 1000mg 07/16, increased to 2000 mg on July 18. Cervical phlegmon culture no growth. May have concern for osteomyelitis in the bone. Blood cultures negative to date. Patient was set to be discharged this morning when she became unresponsive and rapid was called. Discharge Recommendations: Will continue to assess pending progress PT Equipment Recommendations Other: TBD Patient Diagnosis(es): There were no encounter diagnoses. 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 Past Surgical History: has a past surgical history that includes Cholecystectomy; shoulder surgery; Achilles tendon surgery; back surgery; Upper gastrointestinal endoscopy (N/A, 07/02/2021); Eye surgery; laminectomy (07/06/2021); cervical fusion (N/A, 07/06/2021); picc insertion vascular access team (07/10/2021); tracheostomy (07/30/2021); and tracheostomy (N/A, 07/30/2021). Assessment Body Structures, Functions, Activity Limitations Requiring Skilled Therapeutic Intervention: Decreased functional mobility Assessment: PROM x4, B calf stretch 3x 30 seconds. Pt would benefit from continued acute PT to address deficits and maximize functional return Therapy Prognosis: Good Decision Making: Low Complexity Requires PT Follow-Up: Yes Plan Plan Plan: 2-3 times per week Current Treatment Recommendations: Strengthening,ROM Safety Devices Type of Devices: (Pt left as when arrived) Restraints Restraints Initially in Place: Yes Restraints: B soft wrist, reapplied Restrictions Restrictions/Precautions Restrictions/Precautions: General Precautions,Fall Risk Required Braces or Orthoses?: Yes Required Braces or Orthoses Cervical: c-collar Position Activity Restriction Other position/activity restrictions: + COVID-19 07/13, out of precautions. code with intubation 07/24. trach placed 07/30. CIDP previously on IVIG. Hx cervical decompression 07/06/21. epidural abcess C1/C2 with positive blood cultures despite antibiotics. R psoas hematoma, gen Sx signed off. Neurosurgery recommends completing antibiotic course per ID for osteomyelitis with tentative return for C1/2 fusion 08/22. Subjective General Chart Reviewed: Yes Patient assessed for rehabilitation services?: Yes Response To Previous Treatment: Not applicable Family / Caregiver Present: No Follows Commands: Impaired Other (Comment): intermittant, appeared to surgery tech R hand to commands, appeared to try thumbs up to commands. minimal participation with ROM activities. Social/Functional History Social/Functional History Additional Comments: pt trach/ vent, unable to obtain Vision/Hearing Cognition Cognition Cognition Comment: trach/ vent, intermittant participation, uncertain reflexive vs volitional movements. Objective AROM RLE (degrees) RLE AROM: WFL AROM LLE (degrees) LLE AROM : WFL AROM RUE (degrees) RUE AROM : WFL RUE General AROM: within c-spine precautions AROM LUE (degrees) LUE AROM : WFL LUE General AROM: within c-spine precautions. Exercise Treatment: PROM x10 4 extremities, all planes. calf stretch B 3x 30 seconds AM-PAC Score AM-PAC Inpatient Mobility without Stair Climbing Raw Score : 6 (08/08/211600) AM-PAC Inpatient without Stair Climbing T-Scale Score : 26.48 (08/08/211600) Mobility Inpatient CMS 0-100% Score: 92.18 (08/08/211600) Mobility Inpatient without Stair CMS G-Code Modifier : CM (08/08/211600) Goals Short Term Goals Time Frame for Short term goals: 10 visits Short term goal 1: Pt will not obtain contractures Short term goal 2: Pt will tolerate 30min PT Short term goal 3: Pt will progress with mobility as able and appropriate Education Patient Education Education Given To: Patient Education Provided: Role of Therapy;Plan of Care Education Method: Verbal Education Outcome: Continued education needed Therapy Time Individual Concurrent Group Co-treatment Time In 1451 Time Out 1512 Minutes 21 Timed Code Treatment Minutes: 15 Minutes Reynaldo Childress PT Images from the original note were not included. [facility] -Progress Note Today's Date and Time: 08/08/2021, 9:24 AM Impression : Covid 19 Covid test: 07-13-21: Positive Prior MSSA septicemia. Bacteremia persistent from 06-28-21 through 07-04-21 CIDP chronic IVIG therapy - immunosuppressed Ulcer on the left foot Allergy to keflex and avelox - tolerates PNC Prior Erosive changes at craniocervical junction by CT cervical spine 06-29-21 S/P cervical spine surgery on 07-06-21 for relief of pressure from an epidural plegmon, causing compression of cervical medullary junction. Phlegmon found, no abscess. Cultures no growth. Bone described as soft raising concern for osteomyelitis. Hx of Hypothyroidism Diabetes mellitus type 2 Essential hypertension Acute respiratory failure 07/24/21 Recommendations: Covid treatment: Bebtelovimab infusion received 07-15-21 Decadron: Not indicated Remdesivir not indicated Actemra: not indicated Antimicrobial treatment: Continue nafcillin. Tentative Stop date 08-15-21 (6 weeks Rx) Concern for nafcillin induced hypokalemia-Improving KCl replacement for hypokalemia Nausea and vomiting with Cefazolin Sputum culture ordered 07/24/21-Klebsiella heavy growth Levaquin IV 750 mg daily x 7 days initiated 07/25/21. Stop date 08-01-21 Medical Decision Making/Summary/Discussion:08/08/2021 Patient intubated 07/24/21 for acute respiratory failure. MRI Brain and Cervical spine 07/26/21: Findings suggestive of osteomyelitis at the skull base including clivus, occipital condyles and C1 and C2 with associated pathologic fracture of C2. There is a 4.1 cm abscess collection within the posterior paraspinal soft tissues at the level of the skull base. Improved compression of cervical medullary junction from prior MRI Trach placed 07/30/21 per ENT Flex/Ex completed 08/07/21-More displacement of C2 fx noted Infection Control Recommendations [place] Precautions Isolate for Covid until 07-23-21 Antimicrobial Stewardship Recommendations Simplification of therapy Targeted therapy Coordination of Outpatient Care: Estimated Length of IV antimicrobials: 08-15-21 Patient will need Midline Catheter Insertion: no Patient will need PICC line Insertion:no Patient will need: Home IV , Infusion Center, SNF, LTAC: TBD Patient will need outpatient wound care:No Chief complaint/reason for consultation: Covid 19 MSSA septicemia Osteomyelitis cervical spine History of Present Illness: Meg Georges is a 56 y.o.-year-old female who was initially admitted on 07/14/2021. Patient seen at the request of . INITIAL HISTORY: Patient known to our service because of prior admission on 06-28-21 when she presented with altered mentation and was found to have a MSSA septicemia (06-28-21). She was also found to have erosive changes at the craniocervical junction which may be related to arthritis or osteomyelitis by CT cervical spine of 06-29-21. 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 Patient received treatment with Nafcillin. She also underwent cervical spine surgery on 07-06-21 for relief of pressure from an epidural plegmon/abscess, causing compression of cervical medullary junction. Soft bone and phlegmon were found but no definite abscess. Cultures of tissue yielded no growth. Patient was released to receive treatment with Nafcillin through 08-20-21. Patient was transferred back to [facility] on 07-14-21 because of a positive Covid test obtained on 07-13-21 Speech therapy consulted for swallow evaluation. She had aspiration of pudding on 07-19-21 CXR 07-20-21: No acute cardiopulmonary findings Speech therapy suggested NPO with tube feeds Impression CT chest 07/24/21 Consolidation in the lower lobes bilaterally that is worse on the left compared to the right consistent with pneumonia. No acute or chronic pulmonary Impression CT head 07/24/21 No acute intracranial abnormality. Chronic sinusitis most pronounced in the ethmoid air cells and left maxillary sinus. CURRENT EVALUATION : 08/08/2021 The patient was evaluated in the ICU Afebrile VS stable Intermittent HTN The patient remains on mechanical ventilation with 30% FiO2 She is not doing well with weaning trials. Precedex for sedation. She opens eyes to voice and responds to noxious stimuli but is not following commands. Seroquel added for intermittent anxiety Flex/Ex completed 08/07/21-Increased displacement of C2 fracture noted. Neurosurgery with plans for outpatient C 1/2 fusion surgery tentatively on 08/22/21. Nafcillin continues until 08/15/21 We will continue to follow Labs, X rays reviewed: 08/08/2021 BUN: 15-->11-->11 Cr:0.60-->0.55-->0.59 WBC: 9.5-->12.3 Hb:8.6 Plat: 565 CRP: 183.3 SARS CoV2: positive 07-13-21 Cultures: Urine: Blood: 06-28-21: MSSA 06-30-21: MSSA 07-01-21: MSSA 07-02-21: MSSA 07-03-21: MSSA 07-04-21: MSSA 07-07-21: No growth 07-08-21: No growth 07-13-21: No growth 07/14/21: No growth 07/17/21: No growth 07-22-21: No growth X 2 Sputum : 07/24/21: Klebsiella Aerogenes Wound: Cervical tissue neck: 07-06-21: No growth 07-26-21 CT Chest 07/24/21 07/15/21 CXR 07/24/21 07-13-21: Impression MRI Brain and cervical spine 07/26/21 Cervical spine MRI: 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 Pathologic fracture of dense process of C2 is associated with its retroflexion and mild narrowing at the craniocervical junction. Mild degenerative findings of cervical spine as described. Brain MRI: There is no acute infarction, intracranial hemorrhage, or intracranial mass lesion. Mild chronic microangiopathic ischemic disease. Mild generalized volume loss. Severe mucosal thickening of frontal ethmoidal maxillary and sphenoid sinuses. Moderate mucosal thickening of mastoid air cells. Impression CT chest/abd/pelvis 07/15/21 Subsegmental atelectasis and consolidation left lower lobe which may represent pneumonia with associated small left pleural effusion which is more apparent. Recommend follow-up until resolution. Mild subsegmental infiltrate or atelectasis right lower lobe. Hazy ground-glass opacities along the right lower lobe and lingula which could represent early infiltrates from multisegmental bronchopneumonia and is more prominent. Small pericardial effusion which is more apparent Borderline enlarged mediastinal lymph nodes which are more prominent and are probably reactive in etiology. Recommend follow-up. I have personally reviewed the past medical history, past surgical history, medications, social history, and family history, and I have updated the database accordingly. 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 LEFT C2 RHIZOTOMY, EXPLORATION OF EPIDURAL PHLEGMON performed by Alisia Crump DO at [facility] OR CHOLECYSTECTOMY EYE SURGERY [address] 250 shunt for open angle glaucoma. MRI compatible- device is all silicone LAMINECTOMY 07/06/2021 Posterior C1, LEFT C2 RHIZOTOMY, EXPLORATION OF EPIDURAL PHLEGMON PICC INSERTION VASCULAR ACCESS TEAM 07/10/2021 SHOULDER SURGERY right TRACHEOSTOMY 07/30/2021 TRACHEOSTOMY N/A 07/30/2021 TRACHEOTOMY performed by Erica Santiago MD at [facility] OR UPPER GASTROINTESTINAL ENDOSCOPY N/A 07/02/2021 EGD ESOPHAGOGASTRODUODENOSCOPY performed by Hari Wagner MD at [facility] Endoscopy Medications: QUEtiapine 50 mg Oral Nightly chlordiazePOXIDE 10 mg Oral TID insulin lispro 0-12 Units SubCUTAneous Q6H metoclopramide 5 mg IntraVENous Q6H famotidine 20 mg Per NG tube BID valproic acid 250 mg Per NG tube BID oxyCODONE 10 mg Oral Q6H carvedilol 25 mg Oral BID WC latanoprost 1 drop Both Eyes Nightly lactobacillus 1 capsule Oral Daily with breakfast gabapentin 200 mg Oral TID nafcillin 2,000 mg IntraVENous Q6H [Held by provider] aspirin 325 mg Oral Daily [Held by provider] calcium carbonate-vitamin D3 2 tablet Oral Daily levothyroxine 100 mcg Oral Daily enoxaparin 40 mg SubCUTAneous Daily Social History: Social History Socioeconomic History Marital status: Spouse name: Not on file Number of children: Not on file Years of education: Not on file Highest education level: Not on file Occupational History Not on file Tobacco Use Smoking status: Former Smoker Years: 20.00 Types: Cigarettes Quit date: 10/06/1995 Years since quittin.8 Smokeless tobacco: Never Used Substance and Sexual Activity Alcohol use: No Drug use: No Sexual activity: Not on file Other Topics Concern Not on file Social History Narrative Not on file Social Determinants of Health Financial Resource Strain: Difficulty of Paying Living Expenses: Not on file Food Insecurity: Worried About Running Out of Food in the Last Year: Not on file Ran Out of Food in the Last Year: Not on file Transportation Needs: Lack of Transportation (Medical): Not on file Lack of Transportation (Non-Medical): Not on file Physical Activity: Days of Exercise per Week: Not on file Minutes of Exercise per Session: Not on file Stress: Feeling of Stress : Not on file Social Connections: Frequency of Communication with Friends and Family: Not on file Frequency of Social Gatherings with Friends and Family: Not on file Attends Mosque Services: Not on file Active Member of Clubs or Organizations: Not on file Attends Club or Organization Meetings: Not on file Marital Status: Not on file Intimate Partner Violence: Fear of Current or Ex-Partner: Not on file Emotionally Abused: Not on file Physically Abused: Not on file Sexually Abused: Not on file Housing Stability: Unable to Pay for Housing in the Last Year: Not on file Number of Places Lived in the Last Year: Not on file Unstable Housing in the Last Year: Not on file Family History: Family History Problem Relation Age of Onset Diabetes Mother Cancer Father Allergies: Moxifloxacin, Peg 3350-electrolytes, Tapentadol, Avelox [moxifloxacin hydrochloride], and Cephalexin Review of Systems: Unable to perform ROS, trach to vent Physical Examination : Patient Vitals for the past 8 hrs: BP Temp Temp src Pulse Resp SpO2 Weight 08/08/21 0850 (!) 167/91 (!) 109 08/08/21 0752 (!) 104 22 100 % 08/08/21 0745 (!) 101 26 100 % 08/08/21 0600 (!) 109/56 98.4 F (36.9 C) Axillary 89 15 100 % 130 lb 8.2 oz (59.2 kg) 08/08/21 0500 (!) 106/51 89 17 100 % 08/08/21 0400 126/65 98.6 F (37 C) Axillary 93 22 100 % 08/08/21 0314 (!) 106 25 100 % 08/08/21 0300 114/63 95 22 100 % 08/08/21 0200 (!) 111/59 97.6 F (36.4 C) Axillary 79 15 100 % General Appearance: Sedated, trach to vent Head: Normocephalic, no trauma ENT: Tracheostomy to vent Neck:Supple, without lymphadenopathy. cervical collar in place Pulmonary/Chest: Clear to auscultation, without wheezes, rales, or rhonchi. Cardiovascular: Regular rate and rhythm without murmurs, rubs, or gallops. Abdomen: Soft, non tender. Bowel sounds normal. All four Extremities: No cyanosis, clubbing, edema, or effusions. Neurologic: She is responding to noxious stimuli Skin: Warm and dry with good turgor. Medical Decision Making -Laboratory: I have independently reviewed/ordered the following labs: CBC with Differential: Recent Labs 08/06/21 0344 WBC 12.3* HGB 8.6* HCT 26.3* PLT 565* LYMPHOPCT 17* MONOPCT 5 BMP: Recent Labs 08/06/21 0344 08/08/21 06 NA 143 141 K 3.6* 3.8 CL 109* 108* CO2 23 22 BUN 11 11 CREATININE 0.55 0.59 Hepatic Function Panel: No results for input(s): PROT, LABALBU, BILIDIR, IBILI, BILITOT, ALKPHOS, ALT, AST in the last 72 hours. No results for input(s): RPR in the last 72 hours. No results for input(s): HIV in the last 72 hours. No results for input(s): BC in the last 72 hours. Lab Results Component Value Date RBC 2.70 08/06/2021 WBC 12.3 08/06/2021 TURBIDITY Clear 07/18/2021 Lab Results Component Value Date CREATININE 0.59 08/08/2021 GLUCOSE 193 08/08/2021 GLUCOSE 229 06/04/2011 Medical Decision Making-Imaging: Narrative EXAMINATION: 3 XRAY VIEWS OF THE CERVICAL SPINE 08/07/2021 5:09 pm COMPARISON: CT of the cervical spine from 07/25/2021 HISTORY: ORDERING SYSTEM PROVIDED HISTORY: pre-op planning, felx/ext and open mouth odontoid TECHNOLOGIST PROVIDED HISTORY: pre-op planning, felx/ext and open mouth odontoid Reason for Exam: upr at 505pm Suspected osteomyelitis skull base involving C2, C1, clivus and occipital condyles with a pathologic fracture C2, and retroflexion of the dens FINDINGS: Reduced mobility with extension; slightly improved mobility with flexion; ~ 6-7 mm retrolisthesis C1 on C2 (fractured dens in relationship to C2) that does not change significantly with flexion or extension. In neutral position and on extension, there is ~ 38 and 33 degree retroflexion dens respectively (as compared to ~ [address] Retroflexion appears somewhat increased with flexion to 43 degrees. Alignment otherwise unchanged radiographically. Straightening cervical lordosis with multilevel degenerative changes as described elsewhere. Impression Limited mobility, slightly better with flexion. No dynamic instability C1 on C2 retroflexion dens increases by ~ 10 degrees with flexion and 5 degrees with extension (from neutral), as above. Medical Decision [id number]: SARS-CoV-2, Rapid COVID-19, Rapid Collected: 07/13/21 2603 Result status: Final Resulting lab: [facility] Reference range: Not Detected Value: DETECTED Abnormal Comment: Rapid NAAT: The specimen is POSITIVE for SARS-Cov-2, the novel coronavirus associated with COVID-19. This test has been authorized by the FDA under an Emergency Use Authorization (EUA) for use by authorized laboratories. The ID NOW COVID-19 assay is designed to detect the virus that causes COVID-19 in patients with signs and symptoms of infection who are suspected of COVID-19. An individual without symptoms of COVID-19 and who is not shedding SARS-CoV-2 virus would expect to have a negative (not detected) result in this assay. Fact sheet for Healthcare Providers: https://www.fda.gov/media/004888/downl oad Fact sheet for Patients: https://www.fda.gov/media/755682/downl oad Methodology: Isothermal Nucleic Acid Amplification Culture, Respiratory Order: [id number] Status: Final result Visible to patient: No (not released) Next appt: Today at 02:30 PM in Radiology (STV MRI RM 1 (1.5T)) Specimen Information: Sputum Aspirated 0 Result Notes Component 07/24/21 1326 Specimen Description .ASPIRATED SPUTUM Direct Exam < 10 EPITHELIAL CELLS/LPF Direct Exam >25 NEUTROPHILS/LPF Direct Exam MANY GRAM NEGATIVE RODS Abnormal Culture KLEBSIELLA AEROGENES HEAVY GROWTH Abnormal Culture NO NORMAL ROB Resulting Agency [facility] Susceptibility Klebsiella aerogenes (1) Antibiotic Interpretation Microscan Method Status aztreonam Sensitive <=1 BACTERIAL SUSCEPTIBILITY PANEL BECKY Final ceFAZolin Resistant BACTERIAL SUSCEPTIBILITY PANEL BECKY Final cefTRIAXone Sensitive <=1 BACTERIAL SUSCEPTIBILITY PANEL BECKY Final ciprofloxacin Sensitive <=0.25 BACTERIAL SUSCEPTIBILITY PANEL BECKY Final gentamicin Sensitive <=1 BACTERIAL SUSCEPTIBILITY PANEL BECKY Final tobramycin Sensitive <=1 BACTERIAL SUSCEPTIBILITY PANEL BECKY Final trimethoprim-sulfamethoxazole Sensitive <=20 BACTERIAL SUSCEPTIBILITY PANEL BECKY Final piperacillin-tazobactam Sensitive 16 BACTERIAL SUSCEPTIBILITY PANEL BECKY Final Thank you for allowing us to participate in the care of this patient. Please call with questions. Jany Francis, GUEST RELATIONS COORDINATOR - LAND SURVEYING MANAGER ATTESTATION: I have discussed the case, including pertinent history and exam findings with the GUEST RELATIONS COORDINATOR. I have evaluated the History, physical findings and pictures of the patient and the coffey elements of the encounter have been performed by me. I have reviewed the laboratory data, other diagnostic studies and discussed them with the GUEST RELATIONS COORDINATOR. I have updated the medical record where necessary. I agree with the assessment, plan and orders as documented by the GUEST RELATIONS COORDINATOR. Seth Stokes MD. Critical Care Team - Daily Progress Note Date and time: 08/08/2021 7:18 AM Patient's name: Meg Georges Patient's account/billing number: [id number] Patient's Date of : 1965 Age: 56 y.o. Date of Admission: 07/14/2021 4:12 PM Length of stay during current admission: 25 Primary Care Physician: Neri Santa Sr, DO ICU Attending Physician: Dr. Willoughby Code Status: Full Code Reason for ICU admission: No chief complaint on file. covid -19 SUBJECTIVE: OVERNIGHT EVENTS: Flex/Ex yesterday supervised by neurosurgery; more displacement of C2 fx; NS recommends full course of osteomyelitis antibioitc regimen. Otherwise no acute overnight events, hemodynamically stable, afebrile Patient continues to require Precedex (weaned to 0.4/hr), prn fentanyl, prn ativan due to agitation. Seroquel added overnight. HISTORY OF PRESENT ILLNESS: Meg Georges is a 56 y.o. 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 Patient was to be discharged this morning however she became unresponsive and tachypneic. ICU team responded to rapid response. Patient was put on nonrebreather. Patient was found to have stridorous respiration and tachypnea was noted. Patient was not responsive to voice, touch, pain. Pupil responses intact bilaterally. Breath sounds decreased left side. Due to stridorous respirations and altered mental status, decision was made to intubate patient. Patient had C1 laminectomy, left C2 rhizotomy, exploration of epidural phlegmon on July 06, 2021. MRI of the cervical spine confirmed small epidural abscess at C1 and C2 level with progressive compression of the brainstem. Blood cultures had been positive for 6 days despite antibiotics, surgery was done to drain abscess. Cultures had no growth. On July 13, 2021 patient was sent to the ED in [facility] from outpatient infusion center where she had been getting 2 units of PRBC and potassium. During the infusion her blood pressure increased to 180s with a headache. Initial labs in the ED noted WBC 8, potassium 2.2, normal LFTs. Magnesium 1.5. Patient was found to be COVID-positive with superimposed lower left lobe pneumonia. Started on Zosyn 3.3 g. Transferred to our hospital on July 14, 2021. Patient received dexamethasone on July 14 and July 15. Patient was given that bebtelovimab infusion on July 15. Cefazolin 07/16-07/18. Nafcillin 1000mg 07/16, increased to 2000 mg on July 18. Cervical phlegmon culture no growth. May have concern for osteomyelitis in the bone. Blood cultures negative to date. Patient was set to be discharged this morning when she became unresponsive and rapid was called. Review of Systems Unable to perform OBJECTIVE: VITAL SIGNS: BP (!) 109/56 Pulse 89 Temp 98.4 F (36.9 C) (Axillary) Resp 15 Ht 5' 5 (1.651 m) Wt 130 lb 8.2 oz (59.2 kg) LMP 12/02/2011 SpO2 100% BMI 21.72 kg/m Tmax over 24 hours: Temp (24hrs), Av.4 F (36.9 C), Min:97.6 F (36.4 C), Max:100 F (37.8 C) Patient Vitals for the past 8 hrs: BP Temp Temp src Pulse Resp SpO2 Weight 08/08/21 0600 (!) 109/56 98.4 F (36.9 C) Axillary 89 15 100 % 130 lb 8.2 oz (59.2 kg) 08/08/21 0500 (!) 106/51 89 17 100 % 08/08/21 0400 126/65 98.6 F (37 C) Axillary 93 22 100 % 08/08/21 0314 (!) 106 25 100 % 08/08/21 0300 114/63 95 22 100 % 08/08/21 0200 (!) 111/59 97.6 F (36.4 C) Axillary 79 15 100 % 08/08/21 0100 (!) 90/51 75 15 100 % 08/08/21 0030 80 15 100 % 08/08/21 0015 85 21 99 % 08/08/21 0000 106/60 97.9 F (36.6 C) Axillary 82 20 100 % 08/07/21 2345 109/60 83 100 % 08/07/21 2335 77 15 100 % 08/07/21 2330 76 100 % Intake/Output Summary (Last 24 hours) at 08/08/2021 0718 Last data filed at 08/08/2021 0621 Gross per 24 hour Intake 2125.07 ml Output 1186 ml Net 939.07 ml Date 08/08/21 0000 - 08/08/21 2359 Shift 1991-4017 1788-7940 3126-4384 24 Hour Total INTAKE I.V.(mL/kg) 196.4(3.3) 196.4(3.3) NG/GT(mL/kg) 508(8.6) 508(8.6) IV Piggyback(mL/kg) 280.5(4.7) 280.5(4.7) Shift Total(mL/kg) 984.9(16.6) 984.9(16.6) OUTPUT Urine(mL/kg/hr) 436 436 Stool(mL/kg) 0(0) 0(0) Shift Total(mL/kg) 436(7.4) 436(7.4) Weight (kg) 59.2 59.2 59.2 59.2 Wt Readings from Last 3 Encounters: 08/08/21 130 lb 8.2 oz (59.2 kg) 07/13/21 140 lb (63.5 kg) 07/10/21 161 lb 11.2 oz (73.3 kg) Body mass index is 21.72 kg/m . PHYSICAL EXAM: General: No acute distress, trach, on sedation, C-collar in place HEENT: Trach in place. Normocephalic, atraumatic. Cardiovascular: Normal cardiac rate present, sinus rhythm on telemetry. Pulmonary: Mechanical breath sounds bilaterally Abdominal: Soft, nondistended, nontender. No palpable masses. Neuro: Opens eyes to touch. Skin: erythema around trach site MEDICATIONS: Scheduled Meds: QUEtiapine 50 mg Oral Nightly chlordiazePOXIDE 10 mg Oral TID insulin lispro 0-12 Units SubCUTAneous Q6H metoclopramide 5 mg IntraVENous Q6H famotidine 20 mg Per NG tube BID valproic acid 250 mg Per NG tube BID oxyCODONE 10 mg Oral Q6H carvedilol 25 mg Oral BID WC latanoprost 1 drop Both Eyes Nightly lactobacillus 1 capsule Oral Daily with breakfast gabapentin 200 mg Oral TID nafcillin 2,000 mg IntraVENous Q6H [Held by provider] aspirin 325 mg Oral Daily [Held by provider] calcium carbonate-vitamin D3 2 tablet Oral Daily levothyroxine 100 mcg Oral Daily enoxaparin 40 mg SubCUTAneous Daily Continuous Infusions: dexmedetomidine 0.4 mcg/kg/hr (08/08/21620) sodium chloride 10 mL/hr at 08/08/21620 dextrose 75 mL/hr (08/06/211956) PRN Meds: fentanNYL, 50 mcg, Q1H PRN magnesium hydroxide, 30 mL, Daily PRN Loperamide HCl, 2 mg, 4x Daily PRN bisacodyl, 10 mg, Daily PRN LORazepam, 2 mg, Q4H PRN potassium chloride, 40 mEq, PRN Or potassium alternative oral replacement, 40 mEq, PRN Or potassium chloride, 10 mEq, PRN sodium chloride flush, 5-40 mL, PRN ondansetron, 4 mg, Q8H PRN Or ondansetron, 4 mg, Q6H PRN acetaminophen, 650 mg, Q6H PRN Or acetaminophen, 650 mg, Q6H PRN dextrose bolus, 125 mL, PRN Or dextrose bolus, 250 mL, PRN glucagon (rDNA), 1 mg, PRN dextrose, 100 mL/hr, PRN magnesium sulfate, 1,000 mg, PRN SUPPORT DEVICES: [x] Ventilator [] BIPAP [] Nasal Cannula [] Room Air VENT SETTINGS (Comprehensive) (if applicable): PRVC mode, FiO2 30%, PEEP 5, Respiratory Rate 15, Tidal Volume 450 Vent Information Ventilator ID: [id number] Vent Mode: PRVC Ventilator Discontinue: (S) Yes Additional Respiratory Assessments Heart Rate: 89 Resp: 15 SpO2: 100 % End Tidal CO2: 35 (%) Position: Semi-Simon's Humidification Source: HME Cuff Pressure (cm H2O): (bagger meat) Skin Barrier Applied: (Mepilex placed after trach change) Lab Results Component Value Date PHART 7.406 07/06/2021 [id number] 34.8 07/06/2021 PO2ART 279.0 07/06/2021 [id number] 21.4 07/06/2021 [id number] 99.4 07/06/2021 FIO2 30.0 08/05/2021 Lactic Acid: Lab Results Component Value Date LACTA 1.0 07/13/2021 LACTA 1.6 06/28/2021 DATA: Complete Blood Count: Recent Labs 08/06/21343 WBC 12.3* HGB 8.6* MCV 97.4 PLT 565* RBC 2.70* HCT 26.3* MCH 31.9 MCHC 32.7 RDW 18.0* MPV 8.4 PT/INR: Lab Results Component Value Date PROTIME 13.1 07/25/2021 INR 1.2 07/25/2021 PTT: Lab Results Component Value Date APTT 23.9 06/28/2021 Basal Metabolic Profile: Recent Labs 08/06/21 0344 08/08/21621 NA 143 141 K 3.6* 3.8 BUN 11 11 CREATININE 0.55 0.59 CL 109* 108* CO2 23 22 Magnesium: Lab Results Component Value Date MG 1.8 08/05/2021 MG 1.9 08/04/2021 MG 1.7 08/02/2021 Phosphorus: Lab Results Component Value Date PHOS 1.9 07/17/2021 S. Calcium: Recent Labs 08/08/21621 CALCIUM 7.9* S. Ionized Calcium:No results for input(s): IONCA in the last 72 hours. Urinalysis: Lab Results Component Value Date NITRU NEGATIVE 07/18/2021 COLORU Yellow 07/18/2021 PHUR 8.5 07/18/2021 WBCUA 2 TO 5 07/18/2021 RBCUA 20 TO 50 07/18/2021 BACTERIA MANY 07/07/2021 SPECGRAV 1.010 07/18/2021 LEUKOCYTESUR NEGATIVE 07/18/2021 UROBILINOGEN Normal 07/18/2021 BILIRUBINUR NEGATIVE 07/18/2021 GLUCOSEU NEGATIVE 07/18/2021 KETUA SMALL 07/18/2021 CARDIAC ENZYMES: No results for input(s): CKMB, CKMBINDEX, TROPONINI in the last 72 hours. Invalid input(s): CKTOTAL;3 BNP: No results for input(s): BNP in the last 72 hours. LFTS No results for input(s): ALKPHOS, ALT, AST, BILITOT, BILIDIR, LABALBU in the last 72 hours. AMYLASE/LIPASE/AMMONIA No results for input(s): AMYLASE, LIPASE, AMMONIA in the last 72 hours. Last 3 Blood Glucose: Recent Labs 08/06/21 0344 08/08/21 06 GLUCOSE 48* 193* HgBA1c: Lab Results Component Value Date LABA1C 9.4 06/28/2021 TSH: Lab Results Component Value Date TSH 7.90 08/07/2021 ANEMIA STUDIES No results for input(s): LABIRON, TIBC, FERRITIN, [id number], FOLATE, OCCULTBLD in the last 72 hours. Cultures during this admission: Blood cultures: [] None drawn [x] Negative [] Positive (Details: ) Urine Culture: [x] None drawn [] Negative [] Positive (Details: ) Sputum Culture: [] None drawn [] Negative [x] Positive (Details: 07/25/21 gram- Klebsiella, completed levaquin 7 days) Endotracheal aspirate: [x] None drawn [] Negative [] Positive (Details: ) Chest Xray (08/08/2021): ASSESSMENT: 1. Spinal epidural abscess 2. Pneumonia 3. Odontoid fracture 4. Anemia 5. Psoas hematoma 6. 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; 4.1 cm abscess at level of skull base - continue nafcillin per ID; tentative stop date 08/15/21 S/p flexion/extension c-spine x-ray with NS; C2 fx more displaced; NS plans for outpatient fixation Cardiovascular: Hemodynamically stable MAP goal 65 Echo 07/02/21 - EF 55% HTN - continue coreg 25 bid Pulmonary: Maintain oxygen sats >92% On ventilator- PRVC 30%, 15/400/5 Continue to CPAP trial; patient having difficulty S/p tracheostomy on 07/30; trach change 08/04/21 Lower lobe bilateral pneumonia,Respiratory culture 07/24 - heavy growth klebsiella aerogens; s/p Levaquin ; stopped 07/31 GI/Nutrition Ulcer Prophylaxis: famotidine 20mg bid Continue tube feeds to goal Reglan 5mg TID due to concern for high residuals on 08/04 No indication to check tube feed residuals at this time GI consulted for PEG; not cleared for endoscopy by NS due to C-spine precautions Renal/Fluid/Electrolyte BUN/Cr 11/0.59 Na/K 141/3.8 Every other day BMP UOP 0.6cc/kg/hr overnight ID Afebrile WBC 12.3 on 08/06; CBC pending CAP treated; s/p levaquin Spinal epidural abscess - continue nafcillin per ID; tentative stop date 08/15/21 Hematology: Hb 8.6 on 08/06; CBC pending Platelets 565 on 08/06; CBC pending Every other day CBC Endocrine: Glucose 214 Uncontrolled DM type 2 Medium dose sliding scale; required 16U/24h 10U lantus x1 today TSH 7.9, home synthroid started DVT Prophylaxis Lovenox Discharge Needs: pending clinical course; to remain ICU while on PRVC with trach CODE STATUS: Full Code Missy Moore MD Department of Internal Medicine/ Critical care [facility]) 08/08/2021, 7:18 AM Attending Physician Statement I have discussed the care of Meg Georges, including pertinent history and exam findings, with the resident. I have seen and examined the patient and the coffey elements of all parts of the encounter have been performed by me. I agree with the assessment, plan and orders as documented by the resident with additions . Discussed with neurosurgery yesterday. Plan for surgery once antibiotics completed Continue trach care Continue tube feeds Decrease sedatives as tolerated Total critical care time caring for this patient with life threatening, unstable organ failure, including direct patient contact, management of life support systems, review of data including imaging and labs, discussions with other team members and physicians at least 30 Min so far today, excluding procedures. Please note that this chart was generated using voice recognition Mapiliary dictation software. Although every effort was made to ensure the accuracy of this automated dampener, some errors in dampener may have occurred. Neurosurgery attending Supervised passive flexion extension and neurtral latera xray done in xray department There is no gross movement of C1/2 junction as patient is quite stiff even with ativan and like to maintain some extension. There is however more displacement of C2 pathologic fracture compared to previous xray and possible more compared to C2. This is not surprising Recommend completion of full course of antibiotic for osteomyelitis as scheduled per ID 08/15 She is likely to be stable as long as she has collar and not very active. Ok for DC to rehab/SNF with collar. Ok to have collar off in bed. Will bring patient back to hospital elective for C1/2 fusion tentatively on 08/22 Beatriz Crump DO Neurosurgeon 08/07/21 1729 Patient Transport Time Spent Transporting 46-60 Transport Ventillation Type Transport vent Transport From ICU Transport Destination Other (XR) The transport originated from [facility], room 3024. Pt. was transported to XR. Assisting with the transport was RN. Appropriate devices were applied to monitor the patient's condition during transport. Patient transported via 30% O2 via ventilator. Patient tolerated well. MILLIE MONK RCP 5:34 PM Comprehensive Nutrition Assessment Type and Reason for Visit: Reassess Nutrition Recommendations/Plan: Continue Current Tube Feeding at this time. Will continue to monitor TF tolerance/adequacy, labs, and care plans. Modify TF as needed. Nutrition Assessment: Chart reviewed. TF was off earlier today for PEG placement. Noted GI unable to place PEG. Peptide Based TF resumed via NG tube and is currently at 50 mL/hr. Rectal tube in place. Meds/labs reviewed. Nutrition Related Findings: meds/labs reviewed Wound Type: Stage II,Diabetic Ulcer,Surgical Incision Current Nutrition Intake & Therapies: Average Meal Intake: NPO Average Supplements Intake: NPO ADULT TUBE FEEDING; Nasogastric; Peptide Based; Continuous; 50; No; 30; Q 4 hours Current Tube Feeding (TF) Orders: Feeding Route: Nasogastric Formula: Peptide Based Schedule: Continuous Feeding Regimen: 50 mL/hr Current TF & Flush Orders Provides: Peptide Based Formula at 50 mL/hr =1440 kcal and 90 g pro/day Anthropometric Measures: Height: 5' 5 (165.1 cm) [place] Body Weight (IBW): 125 lbs (57 kg) Admission Body Weight: 133 lb 13.1 oz (60.7 kg) Current Body Weight: 131 lb 6.3 oz (59.6 kg), 105.1 % IBW. Weight Source: Bed Scale Current BMI (kg/m2): 21.9 Weight Adjustment For: No Adjustment BMI Categories: Normal Weight (BMI 18.5-24.9) Estimated Daily Nutrient Needs: Energy Requirements Based On: Kcal/kg Weight Used for Energy Requirements: Admission Energy (kcal/day): 1500 kcal/day Weight Used for Protein Requirements: Admission Protein (g/day): 90 g pro/day Method Used for Fluid Requirements: Other (Comment) Fluid (ml/day): per MD Nutrition Diagnosis: Inadequate oral intake related to impaired respiratory function as evidenced by NPO or clear liquid status due to medical condition, need for enteral nutrition support Nutrition Interventions: Food and/or Nutrient Delivery: Continue Current Tube Feeding Nutrition Education/Counseling: No recommendation at this time Coordination of Nutrition Care: Continue to monitor while inpatient Goals: Previous Goal Met: Goal(s) Achieved Goals: Meet at least 75% of estimated needs,prior to discharge Nutrition Monitoring and Evaluation: Behavioral-Environmental Outcomes: None Identified Food/Nutrient Intake Outcomes: Enteral Nutrition Intake/Tolerance Physical Signs/Symptoms Outcomes: Biochemical Data,Nutrition Focused Physical Findings,Skin,Weight,Fluid Status or Edema,Diarrhea Discharge Planning: Too soon to determine VANESSA RAYA RD, [place] Contact: PALLIATIVE CARE NURSING ASSESSMENT Patient: Meg Georges Room: [address] [place] [address] Reason For Consult Goals of care evaluation Distress management Guidance and support Facilitate communications Assistance in coordinating care Code Status: Full Code Impression: Meg Georges is a 56 y.o. 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 Currently hospitalized for the management of Covid 19 infection, MSSA sepsis, odontoid fx, The Palliative Care Team is following to assist with patient and family support, goals of care. Vital Signs Blood pressure 99/64, pulse 89, temperature 97.7 F (36.5 C), temperature source Oral, resp. rate 23, height 5' 5 (1.651 m), weight 131 lb 6.3 oz (59.6 kg), last menstrual period 12/02/2011, SpO2 100 %, not currently . Patient Active Problem List Diagnosis Cellulitis of left finger Altered mental state Encephalitis Encephalopathy CIDP (chronic inflammatory demyelinating polyneuropathy) ([facility]) Sepsis (HCC) Bacteremia Hypothyroidism Hypokalemia Type 2 diabetes mellitus with diabetic polyneuropathy ([facility]) Primary hypertension Upper GI bleed Non-intractable vomiting Unintentional weight loss Metabolic encephalopathy MSSA (methicillin susceptible Staphylococcus aureus) septicemia ([facility]) CRP elevated Bandemia Allergy to multiple antibiotics Pyogenic inflammation of bone (HCC) Acute intractable headache Septic arthritis of cervical spine (HCC) 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 COVID Hypomagnesemia Normocytic anemia Acute respiratory failure with hypoxemia (HCC) Atlantoaxial instability ACP (advance care planning) Goals of care, counseling/discussion Encounter for palliative care Feeding difficulties On tube feeding diet Palliative Interaction: Reviewed patient's hospital course. Updates received from bedside nurse Alaina. Pt requires precedex gtt along with ativan and fentanyl prn. Pt gets anxious at times. Pt being taken to get the xrays ordered by neuro this afternoon. Neurosurgery - requires xray cervical/flexion extension and open mouth odontoid view prior to surgical intervention. Viewed patient at bedside. Pt on precedex drip. No attempts made to awaken patient, no family in room. Pt resting quietly in bed. c collar on. Trach midline to vent. Ng tube left nares to continuous tube feedings. Magnesium being replaced. Random movements noted of bilateral arms and bilateral legs. Vent settings 30% FIO2, TV 400, peep 5, set rate 16. Respiratory rate 16 to 20, pulse 90, bp 107/64 Plan is for trach to be changed on . Treated for covid (tested positive 07/13/21) bebtelovimab infusion 07/15/21. out of isolation 07/23/21. MSSA septicemia On antibiotics til 08/15/21 nafcillin. Received levaquine Cervical spine surgery on 07/06/21 for relief of pressure from an epidual plegmon. Phlegmon found, but no abscess. Cultures no growth. Questionable osteomyelitis. Swallow evaluation suggests aspiration of pudding on 07/19/21. Speech therapy suggested npo with tube feedings. Ng in place awaiting peg placement. Called and spoke with Hina. I called and introduced myself and my role in palliative care. Offered support and acknowledged how difficult this must be for her having her sister in the hospital. We discussed her supports she relates she has a and two sons. Confirmed that she had received updates earlier today. She relates she gave permission for feeding tube for Meg. I let her know that I do not know when the feeding tube will be placed, but that Meg was going to have the additional xrays done this afternoon that the neurosurgeon had requested. Explained we should have updates for her tomorrow. Asked if I could assist her with anything. Hina denies needs at present. She is appreciate of call. I gave her my name and office phone number and encouraged her to call if we can be of assistance. I let her know that I will be rounding at [facility] all week. Goals/Plan of care Education/support to staff Education/support to family Communications with primary service Providing support for coping/adaptation/distress of family Continue with current plan of care Validating patient/family distress Continued communication updates Recognizing, reflecting, and empathizing with family members' anticipatory grief offered support, and reminded Hina that palliative care is here as a support to her and her sister. Encouraged her to call us as needed. Update given. Octave Board Racker Leeann UREÑA, RN, ONN-CG [place] Office: [phone] [place] Office: [phone] [facility] Office: [phone] For Symptom Management Clinic scheduling please call [phone] Images from the original note were not included. [facility] -Progress Note Today's Date and Time: 08/07/2021, 10:19 AM Impression : Covid 19 Covid test: 07-13-21: Positive Prior MSSA septicemia. Bacteremia persistent from 06-28-21 through 07-04-21 CIDP chronic IVIG therapy - immunosuppressed Ulcer on the left foot Allergy to keflex and avelox - tolerates PNC Prior Erosive changes at craniocervical junction by CT cervical spine 06-29-21 S/P cervical spine surgery on 07-06-21 for relief of pressure from an epidural plegmon, causing compression of cervical medullary junction. Phlegmon found, no abscess. Cultures no growth. Bone described as soft raising concern for osteomyelitis. Hx of Hypothyroidism Diabetes mellitus type 2 Essential hypertension Acute respiratory failure 07/24/21 Recommendations: Covid treatment: Bebtelovimab infusion received 07-15-21 Decadron: Not indicated Remdesivir not indicated Actemra: not indicated Antimicrobial treatment: Continue nafcillin. Tentative Stop date 08-15-21 (6 weeks Rx) Concern for nafcillin induced hypokalemia-Improving KCl replacement for hypokalemia Nausea and vomiting with Cefazolin Sputum culture ordered 07/24/21-Klebsiella heavy growth Levaquin IV 750 mg daily x 7 days initiated 07/25/21. Stop date 08-01-21 Medical Decision Making/Summary/Discussion:08/07/2021 Patient intubated 07/24/21 for acute respiratory failure. MRI Brain and Cervical spine 07/26/21: Findings suggestive of osteomyelitis at the skull base including clivus, occipital condyles and C1 and C2 with associated pathologic fracture of C2. There is a 4.1 cm abscess collection within the posterior paraspinal soft tissues at the level of the skull base. Improved compression of cervical medullary junction from prior MRI Trach placed 07/30/21 per ENT Neurosurgery - needs xray cervical/flexion extension and open mouth odontoid view prior to surgical intervention. Infection Control Recommendations [place] Precautions Isolate for Covid until 07-23-21 Antimicrobial Stewardship Recommendations Simplification of therapy Targeted therapy Coordination of Outpatient Care: Estimated Length of IV antimicrobials: 08-15-21 Patient will need Midline Catheter Insertion: no Patient will need PICC line Insertion:no Patient will need: Home IV , Infusion Center, SNF, LTAC: TBD Patient will need outpatient wound care:No Chief complaint/reason for consultation: Covid 19 MSSA septicemia Osteomyelitis cervical spine History of Present Illness: Meg Georges is a 56 y.o.-year-old female who was initially admitted on 07/14/2021. Patient seen at the request of . INITIAL HISTORY: Patient known to our service because of prior admission on 06-28-21 when she presented with altered mentation and was found to have a MSSA septicemia (06-28-21). She was also found to have erosive changes at the craniocervical junction which may be related to arthritis or osteomyelitis by CT cervical spine of 06-29-21. 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 Patient received treatment with Nafcillin. She also underwent cervical spine surgery on 07-06-21 for relief of pressure from an epidural plegmon/abscess, causing compression of cervical medullary junction. Soft bone and phlegmon were found but no definite abscess. Cultures of tissue yielded no growth. Patient was released to receive treatment with Nafcillin through 08-20-21. Patient was transferred back to [facility] on 07-14-21 because of a positive Covid test obtained on 07-13-21 Speech therapy consulted for swallow evaluation. She had aspiration of pudding on 07-19-21 CXR 07-20-21: No acute cardiopulmonary findings Speech therapy suggested NPO with tube feeds Impression CT chest 07/24/21 Consolidation in the lower lobes bilaterally that is worse on the left compared to the right consistent with pneumonia. No acute or chronic pulmonary Impression CT head 07/24/21 No acute intracranial abnormality. Chronic sinusitis most pronounced in the ethmoid air cells and left maxillary sinus. CURRENT EVALUATION : 08/07/2021 The patient was evaluated in the ICU Afebrile VS stable Patient unchanged No complaints No new issues per RN The patient remains on mechanical ventilation with 30% FiO2 Precedex for sedation. She opens eyes to voice but is not following commands. She appears comfortable. Neurosurgery - requires xray cervical/flexion extension and open mouth odontoid view prior to surgical intervention Nafcillin continues We will continue to follow Labs, X rays reviewed: 08/07/2021 BUN: 15-->11 Cr:0.60-->0.55 WBC: 9.5-->12.3 Hb:8.6 Plat: 565 CRP: 183.3 SARS CoV2: positive 07-13-21 Cultures: Urine: Blood: 06-28-21: MSSA 06-30-21: MSSA 07-01-21: MSSA 07-02-21: MSSA 07-03-21: MSSA 07-04-21: MSSA 07-07-21: No growth 07-08-21: No growth 07-13-21: No growth 07/14/21: No growth 07/17/21: No growth 07-22-21: No growth X 2 Sputum : 07/24/21: Klebsiella Aerogenes Wound: Cervical tissue neck: 07-06-21: No growth 07-26-21 CT Chest 07/24/21 07/15/21 CXR 07/24/21 07-13-21: Impression MRI Brain and cervical spine 07/26/21 Cervical spine MRI: 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 Pathologic fracture of dense process of C2 is associated with its retroflexion and mild narrowing at the craniocervical junction. Mild degenerative findings of cervical spine as described. Brain MRI: There is no acute infarction, intracranial hemorrhage, or intracranial mass lesion. Mild chronic microangiopathic ischemic disease. Mild generalized volume loss. Severe mucosal thickening of frontal ethmoidal maxillary and sphenoid sinuses. Moderate mucosal thickening of mastoid air cells. Impression CT chest/abd/pelvis 07/15/21 Subsegmental atelectasis and consolidation left lower lobe which may represent pneumonia with associated small left pleural effusion which is more apparent. Recommend follow-up until resolution. Mild subsegmental infiltrate or atelectasis right lower lobe. Hazy ground-glass opacities along the right lower lobe and lingula which could represent early infiltrates from multisegmental bronchopneumonia and is more prominent. Small pericardial effusion which is more apparent Borderline enlarged mediastinal lymph nodes which are more prominent and are probably reactive in etiology. Recommend follow-up. I have personally reviewed the past medical history, past surgical history, medications, social history, and family history, and I have updated the database accordingly. 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 LEFT C2 RHIZOTOMY, EXPLORATION OF EPIDURAL PHLEGMON performed by Alisia Crump DO at [facility] OR CHOLECYSTECTOMY EYE SURGERY [address] 250 shunt for open angle glaucoma. MRI compatible- device is all silicone LAMINECTOMY 07/06/2021 Posterior C1, LEFT C2 RHIZOTOMY, EXPLORATION OF EPIDURAL PHLEGMON PICC INSERTION VASCULAR ACCESS TEAM 07/10/2021 SHOULDER SURGERY right TRACHEOSTOMY 07/30/2021 TRACHEOSTOMY N/A 07/30/2021 TRACHEOTOMY performed by Erica Santiago MD at [facility] OR UPPER GASTROINTESTINAL ENDOSCOPY N/A 07/02/2021 EGD ESOPHAGOGASTRODUODENOSCOPY performed by Hari Wagner MD at [facility] Endoscopy Medications: QUEtiapine 25 mg Oral BID chlordiazePOXIDE 10 mg Oral TID insulin lispro 0-12 Units SubCUTAneous Q6H metoclopramide 5 mg IntraVENous Q6H famotidine 20 mg Per NG tube BID valproic acid 250 mg Per NG tube BID oxyCODONE 10 mg Oral Q6H carvedilol 25 mg Oral BID WC latanoprost 1 drop Both Eyes Nightly lactobacillus 1 capsule Oral Daily with breakfast gabapentin 200 mg Oral TID nafcillin 2,000 mg IntraVENous Q6H [Held by provider] aspirin 325 mg Oral Daily [Held by provider] calcium carbonate-vitamin D3 2 tablet Oral Daily [Held by provider] levothyroxine 100 mcg Oral Daily enoxaparin 40 mg SubCUTAneous Daily Social History: Social History Socioeconomic History Marital status: Spouse name: Not on file Number of children: Not on file Years of education: Not on file Highest education level: Not on file Occupational History Not on file Tobacco Use Smoking status: Former Smoker Years: 20.00 Types: Cigarettes Quit date: 10/06/1995 Years since quittin.8 Smokeless tobacco: Never Used Substance and Sexual Activity Alcohol use: No Drug use: No Sexual activity: Not on file Other Topics Concern Not on file Social History Narrative Not on file Social Determinants of Health Financial Resource Strain: Difficulty of Paying Living Expenses: Not on file Food Insecurity: Worried About Running Out of Food in the Last Year: Not on file Ran Out of Food in the Last Year: Not on file Transportation Needs: Lack of Transportation (Medical): Not on file Lack of Transportation (Non-Medical): Not on file Physical Activity: Days of Exercise per Week: Not on file Minutes of Exercise per Session: Not on file Stress: Feeling of Stress : Not on file Social Connections: Frequency of Communication with Friends and Family: Not on file Frequency of Social Gatherings with Friends and Family: Not on file Attends Mosque Services: Not on file Active Member of Clubs or Organizations: Not on file Attends Club or Organization Meetings: Not on file Marital Status: Not on file Intimate Partner Violence: Fear of Current or Ex-Partner: Not on file Emotionally Abused: Not on file Physically Abused: Not on file Sexually Abused: Not on file Housing Stability: Unable to Pay for Housing in the Last Year: Not on file Number of Places Lived in the Last Year: Not on file Unstable Housing in the Last Year: Not on file Family History: Family History Problem Relation Age of Onset Diabetes Mother Cancer Father Allergies: Moxifloxacin, Peg 3350-electrolytes, Tapentadol, Avelox [moxifloxacin hydrochloride], and Cephalexin Review of Systems: Unable to perform ROS, trach to vent Physical Examination : Patient Vitals for the past 8 hrs: BP Temp Temp src Pulse Resp SpO2 Weight 08/07/21 0900 (!) 121/108 97 22 100 % 08/07/21 0857 132/76 98.4 F (36.9 C) Oral 99 20 100 % 08/07/21 0807 95 15 100 % 08/07/21 0800 (!) 164/88 (!) 102 21 100 % 08/07/21 0700 (!) 137/94 (!) 102 30 100 % 08/07/21 0600 (!) 133/90 98.2 F (36.8 C) Axillary 94 23 100 % 08/07/21 0500 131/74 78 16 100 % 08/07/21 0400 112/70 97.8 F (36.6 C) Axillary 77 16 100 % 131 lb 6.3 oz (59.6 kg) 08/07/21 0303 76 16 100 % 08/07/21 0300 127/65 76 18 100 % General Appearance: Sedated, trach to vent Head: Normocephalic, no trauma ENT: Tracheostomy to vent Neck:Supple, without lymphadenopathy. cervical collar in place Pulmonary/Chest: Clear to auscultation, without wheezes, rales, or rhonchi. Cardiovascular: Regular rate and rhythm without murmurs, rubs, or gallops. Abdomen: Soft, non tender. Bowel sounds normal. All four Extremities: No cyanosis, clubbing, edema, or effusions. Neurologic: She does not respond to me but RN does tell me that she followed simple commands earlier today Skin: Warm and dry with good turgor. Medical Decision Making -Laboratory: I have independently reviewed/ordered the following labs: CBC with Differential: Recent Labs 08/05/21 0438 08/06/21 0344 WBC 9.5 12.3* HGB 7.7* 8.6* HCT 24.2* 26.3* PLT 458* 565* LYMPHOPCT 19* 17* MONOPCT 6 5 BMP: Recent Labs 08/05/21 0438 08/06/21 0344 NA 143 143 K 3.5* 3.6* CL 109* 109* CO2 23 23 BUN 14 11 CREATININE 0.53 0.55 MG 1.8 -- Hepatic Function Panel: No results for input(s): PROT, LABALBU, BILIDIR, IBILI, BILITOT, ALKPHOS, ALT, AST in the last 72 hours. No results for input(s): RPR in the last 72 hours. No results for input(s): HIV in the last 72 hours. No results for input(s): BC in the last 72 hours. Lab Results Component Value Date RBC 2.70 08/06/2021 WBC 12.3 08/06/2021 TURBIDITY Clear 07/18/2021 Lab Results Component Value Date CREATININE 0.55 08/06/2021 GLUCOSE 48 08/06/2021 GLUCOSE 229 06/04/2011 Medical Decision Making-Imaging: No new imaging Medical Decision Muzppp-Fyneraly-Slaub: SARS-CoV-2, Rapid COVID-19, Rapid Collected: 07/13/21 1252 Result status: Final Resulting lab: [facility] Reference range: Not Detected Value: DETECTED Abnormal Comment: Rapid NAAT: The specimen is POSITIVE for SARS-Cov-2, the novel coronavirus associated with COVID-19. This test has been authorized by the FDA under an Emergency Use Authorization (EUA) for use by authorized laboratories. The ID NOW COVID-19 assay is designed to detect the virus that causes COVID-19 in patients with signs and symptoms of infection who are suspected of COVID-19. An individual without symptoms of COVID-19 and who is not shedding SARS-CoV-2 virus would expect to have a negative (not detected) result in this assay. Fact sheet for Healthcare Providers: https://www.fda.gov/media/800028/downl oad Fact sheet for Patients: https://www.fda.gov/media/609150/downl oad Methodology: Isothermal Nucleic Acid Amplification Culture, Respiratory Order: [id number] Status: Final result Visible to patient: No (not released) Next appt: Today at 02:30 PM in Radiology (STV MRI RM 1 (1.5T)) Specimen Information: Sputum Aspirated 0 Result Notes Component 07/24/21 2885 Specimen Description .ASPIRATED SPUTUM Direct Exam < 10 EPITHELIAL CELLS/LPF Direct Exam >25 NEUTROPHILS/LPF Direct Exam MANY GRAM NEGATIVE RODS Abnormal Culture KLEBSIELLA AEROGENES HEAVY GROWTH Abnormal Culture NO NORMAL ROB [facility] Sus[facility] Klebsiella aerogenes (1) Antibiotic Interpretation Microscan Method Status aztreonam Sensitive <=1 BACTERIAL SUSCEPTIBILITY PANEL BECKY Final ceFAZolin Resistant BACTERIAL SUSCEPTIBILITY PANEL BECKY Final cefTRIAXone Sensitive <=1 BACTERIAL SUSCEPTIBILITY PANEL BECKY Final ciprofloxacin Sensitive <=0.25 BACTERIAL SUSCEPTIBILITY PANEL BECKY Final gentamicin Sensitive <=1 BACTERIAL SUSCEPTIBILITY PANEL BECKY Final tobramycin Sensitive <=1 BACTERIAL SUSCEPTIBILITY PANEL BECKY Final trimethoprim-sulfamethoxazole Sensitive <=20 BACTERIAL SUSCEPTIBILITY PANEL BECKY Final piperacillin-tazobactam Sensitive 16 BACTERIAL SUSCEPTIBILITY PANEL BECKY Final Thank you for allowing us to participate in the care of this patient. Please call with questions. Seth Stokes MD Critical Care Team - Daily Progress Note Date and time: 08/07/2021 7:58 AM Patient's name: Meg Georges Patient's account/billing number: [id number] Patient's Date of : 1965 Age: 56 y.o. Date of Admission: 07/14/2021 4:12 PM Length of stay during current admission: 24 Primary Care Physician: Neri Santa Sr, ICU Attending Physician: Dr. Willoughby Code Status: Full Code Reason for ICU admission: No chief complaint on file. covid -19 SUBJECTIVE: OVERNIGHT EVENTS: No acute overnight events, hemodynamically stable, afebrile Patient continues to require Precedex, prn fentanyl, prn ativan due to agitation. ID following-continues to be on nafcillin 08/15/21 Neurosurgery - needs xray cervical/flexion extension and open mouth odontoid view when able HISTORY OF PRESENT ILLNESS: Meg Georges is a 56 y.o. 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 Patient was to be discharged this morning however she became unresponsive and tachypneic. ICU team responded to rapid response. Patient was put on nonrebreather. Patient was found to have stridorous respiration and tachypnea was noted. Patient was not responsive to voice, touch, pain. Pupil responses intact bilaterally. Breath sounds decreased left side. Due to stridorous respirations and altered mental status, decision was made to intubate patient. Patient had C1 laminectomy, left C2 rhizotomy, exploration of epidural phlegmon on July 06, 2021. MRI of the cervical spine confirmed small epidural abscess at C1 and C2 level with progressive compression of the brainstem. Blood cultures had been positive for 6 days despite antibiotics, surgery was done to drain abscess. Cultures had no growth. On July 13, 2021 patient was sent to the ED in [facility] from outpatient infusion center where she had been getting 2 units of PRBC and potassium. During the infusion her blood pressure increased to 180s with a headache. Initial labs in the ED noted WBC 8, potassium 2.2, normal LFTs. Magnesium 1.5. Patient was found to be COVID-positive with superimposed lower left lobe pneumonia. Started on Zosyn 3.3 g. Transferred to our hospital on July 14, 2021. Patient received dexamethasone on July 14 and July 15. Patient was given that bebtelovimab infusion on July 15. Cefazolin 07/16-07/18. Nafcillin 1000mg 07/16, increased to 2000 mg on July 18. Cervical phlegmon culture no growth. May have concern for osteomyelitis in the bone. Blood cultures negative to date. Patient was set to be discharged this morning when she became unresponsive and rapid was called. Review of Systems Unable to perform OBJECTIVE: VITAL SIGNS: BP (!) 133/90 Pulse 94 Temp 98.2 F (36.8 C) (Axillary) Resp 23 Ht 5' 5 (1.651 m) Wt 131 lb 6.3 oz (59.6 kg) LMP 12/02/2011 SpO2 100% BMI 21.87 kg/m Tmax over 24 hours: Temp (24hrs), Av.6 F (36.4 C), Min:97 F (36.1 C), Max:98.2 F (36.8 C) Patient Vitals for the past 8 hrs: BP Temp Temp src Pulse Resp SpO2 Weight 08/07/21 0600 (!) 133/90 98.2 F (36.8 C) Axillary 94 23 100 % 08/07/21 0500 131/74 78 16 100 % 08/07/21 0400 112/70 97.8 F (36.6 C) Axillary 77 16 100 % 131 lb 6.3 oz (59.6 kg) 08/07/21 0303 76 16 100 % 08/07/21 0300 127/65 76 18 100 % 08/07/21 0200 121/70 97.6 F (36.4 C) Axillary 15 100 % 08/07/21 0100 100 % 08/07/21 0000 123/68 97 F (36.1 C) Axillary 75 15 100 % Intake/Output Summary (Last 24 hours) at 08/07/2021 0758 Last data filed at 08/07/2021 0718 Gross per 24 hour Intake 1630.3 ml Output 2800 ml Net -1169.7 ml Date 08/07/21 0000 - 08/07/21 2359 Shift 6463-0585 2462-3323 6345-5128 24 Hour Total INTAKE I.V.(mL/kg) 382.5(6.4) 382.5(6.4) NG/GT(mL/kg) 329(5.5) 329(5.5) IV Piggyback(mL/kg) 299(5) 299(5) Shift Total(mL/kg) 1010.6(17) 1010.6(17) OUTPUT Urine(mL/kg/hr) 650 650 Stool(mL/kg) 100(1.7) 100(1.7) Shift Total(mL/kg) 750(12.6) 750(12.6) Weight (kg) 59.6 59.6 59.6 59.6 Wt Readings from Last 3 Encounters: 08/07/21 131 lb 6.3 oz (59.6 kg) 07/13/21 140 lb (63.5 kg) 07/10/21 161 lb 11.2 oz (73.3 kg) Body mass index is 21.87 kg/m . PHYSICAL EXAM: General: No acute distress, trach, on sedation, C-collar in place HEENT: Trach in place. Normocephalic, atraumatic. Cardiovascular: Normal cardiac rate present, sinus rhythm on telemetry. Pulmonary: Mechanical breath sounds bilaterally Abdominal: Soft, nondistended, nontender. No palpable masses. Neuro: Opens eyes to touch. Skin: erythema around trach site MEDICATIONS: Scheduled Meds: chlordiazePOXIDE 10 mg Oral TID insulin lispro 0-12 Units SubCUTAneous Q6H metoclopramide 5 mg IntraVENous Q6H famotidine 20 mg Per NG tube BID valproic acid 250 mg Per NG tube BID oxyCODONE 10 mg Oral Q6H carvedilol 25 mg Oral BID WC latanoprost 1 drop Both Eyes Nightly [Held by provider] lactobacillus 1 capsule Oral Daily with breakfast gabapentin 200 mg Oral TID nafcillin 2,000 mg IntraVENous Q6H [Held by provider] aspirin 325 mg Oral Daily [Held by provider] calcium carbonate-vitamin D3 2 tablet Oral Daily [Held by provider] levothyroxine 100 mcg Oral Daily enoxaparin 40 mg SubCUTAneous Daily Continuous Infusions: dexmedetomidine 0.9 mcg/kg/hr (08/07/21717) sodium chloride 10 mL/hr at 08/07/2118 dextrose 75 mL/hr (08/06/211956) PRN Meds: fentanNYL, 50 mcg, Q1H PRN magnesium hydroxide, 30 mL, Daily PRN Loperamide HCl, 2 mg, 4x Daily PRN bisacodyl, 10 mg, Daily PRN LORazepam, 2 mg, Q4H PRN potassium chloride, 40 mEq, PRN Or potassium alternative oral replacement, 40 mEq, PRN Or potassium chloride, 10 mEq, PRN sodium chloride flush, 5-40 mL, PRN ondansetron, 4 mg, Q8H PRN Or ondansetron, 4 mg, Q6H PRN acetaminophen, 650 mg, Q6H PRN Or acetaminophen, 650 mg, Q6H PRN dextromethorphan-guaiFENesin, 5 mL, Q4H PRN dextrose bolus, 125 mL, PRN Or dextrose bolus, 250 mL, PRN glucagon (rDNA), 1 mg, PRN dextrose, 100 mL/hr, PRN magnesium sulfate, 1,000 mg, PRN SUPPORT DEVICES: [x] Ventilator [] BIPAP [] Nasal Cannula [] Room Air VENT SETTINGS (Comprehensive) (if applicable): PRVC mode, FiO2 30%, PEEP 5, Respiratory Rate 15, Tidal Volume 450 Vent Information Ventilator ID: [id number] Vent Mode: PRVC Ventilator Discontinue: (S) Yes Additional Respiratory Assessments Heart Rate: 94 Resp: 23 SpO2: 100 % End Tidal CO2: 36 (%) Position: Semi-Simon's Humidification Source: HME Cuff Pressure (cm H2O): (bagger meat) Skin Barrier Applied: (Mepilex placed after trach change) Lab Results Component Value Date PHART 7.406 07/06/2021 [id number] 34.8 07/06/2021 PO2ART 279.0 07/06/2021 [id number] 21.4 07/06/2021 [id number] 99.4 07/06/2021 FIO2 30.0 08/05/2021 Lactic Acid: Lab Results Component Value Date LACTA 1.0 07/13/2021 LACTA 1.6 06/28/2021 DATA: Complete Blood Count: Recent Labs 08/05/21 0438 08/06/21 0344 WBC 9.5 12.3* HGB 7.7* 8.6* MCV 98.0 97.4 PLT 458* 565* RBC 2.47* 2.70* HCT 24.2* 26.3* MCH 31.2 31.9 MCHC 31.8 32.7 RDW 18.3* 18.0* MPV 8.6 8.4 PT/INR: Lab Results Component Value Date PROTIME 13.1 07/25/2021 INR 1.2 07/25/2021 PTT: Lab Results Component Value Date APTT 23.9 06/28/2021 Basal Metabolic Profile: Recent Labs 08/05/21 0438 08/06/21 0344 NA 143 143 K 3.5* 3.6* BUN 14 11 CREATININE 0.53 0.55 CL 109* 109* CO2 23 23 Magnesium: Lab Results Component Value Date MG 1.8 08/05/2021 MG 1.9 08/04/2021 MG 1.7 08/02/2021 Phosphorus: Lab Results Component Value Date PHOS 1.9 07/17/2021 S. Calcium: Recent Labs 08/06/21 0344 CALCIUM 8.5* S. Ionized Calcium:No results for input(s): IONCA in the last 72 hours. Urinalysis: Lab Results Component Value Date NITRU NEGATIVE 07/18/2021 COLORU Yellow 07/18/2021 PHUR 8.5 07/18/2021 WBCUA 2 TO 5 07/18/2021 RBCUA 20 TO 50 07/18/2021 BACTERIA MANY 07/07/2021 SPECGRAV 1.010 07/18/2021 LEUKOCYTESUR NEGATIVE 07/18/2021 UROBILINOGEN Normal 07/18/2021 BILIRUBINUR NEGATIVE 07/18/2021 GLUCOSEU NEGATIVE 07/18/2021 KETUA SMALL 07/18/2021 CARDIAC ENZYMES: No results for input(s): CKMB, CKMBINDEX, TROPONINI in the last 72 hours. Invalid input(s): CKTOTAL;3 BNP: No results for input(s): BNP in the last 72 hours. LFTS No results for input(s): ALKPHOS, ALT, AST, BILITOT, BILIDIR, LABALBU in the last 72 hours. AMYLASE/LIPASE/AMMONIA No results for input(s): AMYLASE, LIPASE, AMMONIA in the last 72 hours. Last 3 Blood Glucose: Recent Labs 08/05/21 0438 08/06/21 0344 GLUCOSE 121* 48* HgBA1c: Lab Results Component Value Date LABA1C 9.4 06/28/2021 TSH: Lab Results Component Value Date TSH 2.06 07/24/2021 ANEMIA STUDIES No results for input(s): LABIRON, TIBC, FERRITIN, [id number], FOLATE, OCCULTBLD in the last 72 hours. Cultures during this admission: Blood cultures: [] None drawn [x] Negative [] Positive (Details: ) Urine Culture: [x] None drawn [] Negative [] Positive (Details: ) Sputum Culture: [] None drawn [] Negative [x] Positive (Details: 07/25/21 gram- Klebsiella, completed levaquin 7 days) Endotracheal aspirate: [x] None drawn [] Negative [] Positive (Details: ) Chest Xray (08/07/2021): ASSESSMENT: 1. Spinal epidural abscess 2. Pneumonia 3. Odontoid fracture 4. Anemia 5. Psoas hematoma 6. 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 Cardiovascular: Hemodynamically stable MAP goal 65 Echo 07/02/21 - EF 55% HTN - continue coreg 25 bid Pulmonary: Maintain oxygen sats >92% On ventilator- PRVC 30%, 15/400/5 Continue to CPAP trial; patient having difficulty S/p tracheostomy on 07/30; trach change 08/04/21 Lower lobe bilateral pneumonia,Respiratory culture 07/24 - heavy growth klebsiella aerogens; s/p Levaquin ; stopped 07/31 GI/Nutrition Ulcer Prophylaxis: famotidine 20mg bid Diet: NPO Continue tube feeds to goal Reglan 5mg TID due to concern for high residuals on 08/04 No indication to check tube feed residuals at this time GI consulted for PEG; due to C-collar precautions and inability to obtain flex/ex cervical x-ray, NS unable to clear for endoscopy; will contact IR Renal/Fluid/Electrolyte BMP unremarkable on 08/06 Every other day BMP UOP 2.8cc/kg/hr overnight ID Afebrile WBC 12.3 on 08/06; every other day CBC CAP treated; s/p levaquin Spinal epidural abscess - continue nafcillin per ID; tentative stop date 08/15/21 Hematology: Hb 8.6 on 08/06 Platelets 565 on 08/06 Every other day CBC Endocrine: Glucose 154 Uncontrolled DM type 2 Medium dose sliding scale MSK: -Psoas Hematoma-likely source of drop in hemoglobin, general surgery consulted, no acute intervention indicated. Hb stable 8.6 DVT Prophylaxis Lovenox Discharge Needs: pending clinical course; to remain ICU while on PRVC with trach CODE STATUS: Full Code Missy Moore MD Department of Internal Medicine/ Critical care [facility]) 08/07/2021, 7:58 AM Attending Physician Statement I have discussed the care of Meg Georges, including pertinent history and exam findings, with the resident. I have seen and examined the patient and the coffey elements of all parts of the encounter have been performed by me. I agree with the assessment, plan and orders as documented by the resident with additions . Hold off peg tube for now due to c collar Cont vent support Antibiotics Will d/w NS regarding evaluation for surgery Check tsh and restart synthroid Total critical care time caring for this patient with life threatening, unstable organ failure, including direct patient contact, management of life support systems, review of data including imaging and labs, discussions with other team members and physicians at least 30 Min so far today, excluding procedures. Please note that this chart was generated using voice recognition Map[employer] dictation software. Although every effort was made to ensure the accuracy of this automated dampener, some errors in dampener may have occurred. Neurosurgery NATE/Resident Daily Progress Note No chief complaint on file. 08/06/2021 4:50 PM Chart reviewed. No acute events overnight. No new complaints. Vitals: 08/06/21 1205 08/06/21 1300 08/06/21 1400 08/06/21 1603 BP: 127/62 Pulse: 71 71 74 74 Resp: 11 15 (!) 33 17 Temp: TempSrc: SpO2: 100% 100% 99% 100% Weight: Height: PE: Trach, on vent Opens eyes to verbal stimuli Attempts to open mouth on command Wiggles toes more so on right than left Motor Moves bilat UE Moves bilat LE right >left Lab Results Component Value Date WBC 12.3 (H) 08/06/2021 HGB 8.6 (L) 08/06/2021 HCT 26.3 (L) 08/06/2021 PLT 565 (H) 08/06/2021 CHOL 155 06/28/2021 TRIG 164 (H) 08/01/2021 HDL 71 06/28/2021 ALT <5 (L) 07/24/2021 AST 24 07/24/2021 NA 143 08/06/2021 K 3.6 (L) 08/06/2021 CL 109 (H) 08/06/2021 CREATININE 0.55 08/06/2021 BUN 11 08/06/2021 CO2 23 08/06/2021 TSH 2.06 07/24/2021 INR 1.2 07/25/2021 LABA1C 9.4 (H) 06/28/2021 LABMICR 7 06/25/2013 CRP 183.3 (H) 07/24/2021 SEDRATE 120 (H) 06/28/2021 A/P 56 y.o. female who presents with previous C1 decompression for stenosis/compression of cervical medullary junction 07/14- intubated- pneumonia 07/26 failed extubation and was reintubated 07/30 s/p tach - Continue cervical collar at all times - Will need stabilization, timing to be determined by Dr Crump - XR cervical flexion/extension and open mouth odontoid views for surgical planning when able - f/u GI clearance for PEG placement-will need to manipulate neck for placement Please contact neurosurgery with any changes in patients neurologic status. Kam Loera CNP 08/06/21 4:50 PM Associated attestation - Alisia Crump DO - 08/07/2021 7:23 PM EDT Neurosurgery attending: Patient seen 08/07/2021 I have reviewed the chart, studied the images, and examined the patient personally and agree with the NTAE/Resident except with following addendum: Supervised passive flexion extension and neurtral latera xray done in xray department There is no gross movement of C1/2 junction as patient is quite stiff even ativan and like to maintain some extension. There is however more displacement of C2 pathologic fracture compared to previous xray and possible more attenuated compared to C2. This is not surprising Recommend completion of full course of antibiotic for osteomyelitis as scheduled per ID 08/15 She is likely to be stable as long as she has collar and no very active. Ok for DC to rehab/SNF with collar. Ok to have collar off in bed. Will bring patient back to hospital elective for C1/2 fusion tentatively on 08/22 Beatriz Crump DO Neurosurgeon [facility] reconsult Meg Georges is a 56 y.o. female patient. Hospitalization Day: Chief consult reason: re consult for PEG placement Subjective: Patient on ventilator through trach, 30% FiO2 Sedated Not following commands at this time Labs today - hypokalemia Anemia, hb today 8.6 Required total 3 transfusions in this admission Wbc 12.3 Patient had C1 laminectomy, left C2 rhizotomy, exploration of epidural phlegmon on July 06, 2021 MRI from 07/26 concerning for osteomyelitis Has cervical collar in place, needs stabilization per last neurosurgery note ID onboard for COVID 19, prior MSSA septicemia, on nafcillin VITALS: BP 127/62 Pulse 74 Temp 97.6 F (36.4 C) (Oral) Resp (!) 33 Ht 5' 5 (1.651 m) Wt 133 lb 6.1 oz (60.5 kg) LMP 12/02/2011 SpO2 99% BMI 22.20 kg/m TEMPERATURE: Current - Temp: 97.6 F (36.4 C); Max - Temp Av.9 F (36.6 C) Min: 96.8 F (36 C) Max: 98.6 F (37 C) Physical Assessment: General appearance: Sedated, ill appearing Mental Status: Sedated Lungs: Mechanical breath sounds B/L Heart: regular rate and rhythm Abdomen: soft, nontender, nondistended, normal bowel sounds, no masses, hepatomegaly, splenomegaly Extremities: no edema, redness, tenderness in the calves Skin: no gross lesions, rashes, induration Data Review: Labs and Imaging: CBC: Recent Labs 08/04/21 0440 08/05/21 0438 08/06/21 0344 WBC 10.5 9.5 12.3* HGB 8.0* 7.7* 8.6* MCV 95.6 98.0 97.4 RDW 18.4* 18.3* 18.0* PLT 429 458* 565* ANEMIA STUDIES: No results for input(s): LABIRON, TIBC, FERRITIN, [id number], FOLATE, OCCULTBLD in the last 72 hours. BMP: Recent Labs 08/04/21 0440 08/05/21 0438 08/06/21 0344 NA 141 143 143 K 3.5* 3.5* 3.6* CL 108* 109* 109* CO2 22 23 23 BUN 17 14 11 CREATININE 0.57 0.53 0.55 GLUCOSE 195* 121* 48* CALCIUM 8.1* 8.5* 8.5* LFTS: No results for input(s): ALKPHOS, ALT, AST, BILITOT, BILIDIR, LABALBU in the last 72 hours. Amylase/Lipase and Ammonia: Recent Labs 08/04/21 0440 LIPASE 16 Acute Hepatitis Panel: No results found for: HEPBSAG, HEPCAB, HEPBIGM, HEPAIGM HCV Genotype: No results found for: HEPATITISCGENOTYPE HCV Quantitative: No results found for: HCVQNT LIVER WORK UP: AFP No results found for: AFP Alpha 1 antitrypsin No results found for: A1A Anti - Liver/Kidney Ab No results found for: LIVER-KIDNEYMICROSOMALAB JV No results found for: JV AMA No results found for: MITOAB ASMA No results found for: SMOOTHMUSCAB Ceruloplasmin No results found for: CERULOPLSM Celiac panel No results found for: TISSTRNTIIGG, TTGIGA, IGA PT/INR No results for input(s): PROTIME, INR in the last 72 hours. Cancer Markers: CEA: No results for input(s): CEA in the last 72 hours. Ca 125: No results for input(s): CA125 in the last 72 hours. Ca 19-9: Invalid input(s): CA19-9 AFP: No results for input(s): AFP in the last 72 hours. Lactic acid:Invalid input(s): LACTIC ACID Radiology Review: No results found. Principal Problem: COVID Active Problems: CIDP (chronic inflammatory demyelinating polyneuropathy) (HCC) Bacteremia Hypothyroidism Hypokalemia Type 2 diabetes mellitus with diabetic polyneuropathy (HCC) Primary hypertension Metabolic encephalopathy MSSA (methicillin susceptible Staphylococcus aureus) septicemia (HCC) CRP elevated Bandemia Septic arthritis of cervical spine (HCC) 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 Hypomagnesemia Normocytic anemia Acute respiratory failure with hypoxemia (HCC) Atlantoaxial instability ACP (advance care planning) Goals of care, counseling/discussion Encounter for palliative care Resolved Problems: * No resolved hospital problems. * 1. Need for PEG tube placement for nutrition 2. Needs neurosurgery clearance for endoscopy guided PEG placement, to remove collar and manipulate the neck for flexion for endoscopy. Thank you for allowing me to participate in the care of your patient. Please feel free to contact me with any questions or concerns. Valery Quinteros PGY-1 Internal Medicine [place], [place] 3:59 PM 08/06/2021 Associated attestation - Leigh Mcintosh MD - 08/07/2021 1:12 AM EDT Attending Physician Statement I have independently seen and examined the patient and confirmed the findings, including pertinent history and physical exam, review of systems, lab and diagnostic data. I have discussed the management and plan of care with the resident and agree with the assessment, plan and orders as documented by the resident, with appropriate modifications. Leigh Mcintosh MD Gastroenterology [place], [place] Images from the original note were not included. [facility] -Progress Note Today's Date and Time: 08/06/2021, 10:37 AM Impression : Covid 19 Covid test: 07-13-21: Positive Prior MSSA septicemia. Bacteremia persistent from 06-28-21 through 07-04-21 CIDP chronic IVIG therapy - immunosuppressed Ulcer on the left foot Allergy to keflex and avelox - tolerates PNC Prior Erosive changes at craniocervical junction by CT cervical spine 06-29-21 S/P cervical spine surgery on 07-06-21 for relief of pressure from an epidural plegmon, causing compression of cervical medullary junction. Phlegmon found, no abscess. Cultures no growth. Bone described as soft raising concern for osteomyelitis. Hx of Hypothyroidism Diabetes mellitus type 2 Essential hypertension Acute respiratory failure 07/24/21 Recommendations: Covid treatment: Bebtelovimab infusion received 07-15-21 Decadron: Not indicated Remdesivir not indicated Actemra: not indicated Antimicrobial treatment: Continue nafcillin. Tentative Stop date 08-15-21 (6 weeks Rx) Concern for nafcillin induced hypokalemia-Improving KCl replacement for hypokalemia Nausea and vomiting with Cefazolin Sputum culture ordered 07/24/21-Klebsiella heavy growth Levaquin IV 750 mg daily x 7 days initiated 07/25/21. Stop date 08-01-21 Medical Decision Making/Summary/Discussion:08/06/2021 Patient intubated 07/24/21 for acute respiratory failure. MRI Brain and Cervical spine 07/26/21: Findings suggestive of osteomyelitis at the skull base including clivus, occipital condyles and C1 and C2 with associated pathologic fracture of C2. There is a 4.1 cm abscess collection within the posterior paraspinal soft tissues at the level of the skull base. Improved compression of cervical medullary junction from prior MRI Trach placed 07/30/21 per ENT Neurosurgery - needs xray cervical/flexion extension and open mouth odontoid view prior to surgical intervention. Infection Control Recommendations [place] Precautions Isolate for Covid until 07-23-21 Antimicrobial Stewardship Recommendations Simplification of therapy Targeted therapy Coordination of Outpatient Care: Estimated Length of IV antimicrobials: 08-15-21 Patient will need Midline Catheter Insertion: no Patient will need PICC line Insertion:no Patient will need: Home IV , Infusion Center, SNF, LTAC: TBD Patient will need outpatient wound care:No Chief complaint/reason for consultation: Covid 19 MSSA septicemia Osteomyelitis cervical spine History of Present Illness: Meg Georges is a 56 y.o.-year-old female who was initially admitted on 07/14/2021. Patient seen at the request of . INITIAL HISTORY: Patient known to our service because of prior admission on 06-28-21 when she presented with altered mentation and was found to have a MSSA septicemia (06-28-21). She was also found to have erosive changes at the craniocervical junction which may be related to arthritis or osteomyelitis by CT cervical spine of 06-29-21. 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 Patient received treatment with Nafcillin. She also underwent cervical spine surgery on 07-06-21 for relief of pressure from an epidural plegmon/abscess, causing compression of cervical medullary junction. Soft bone and phlegmon were found but no definite abscess. Cultures of tissue yielded no growth. Patient was released to receive treatment with Nafcillin through 08-20-21. Patient was transferred back to [facility] on 07-14-21 because of a positive Covid test obtained on 07-13-21 Speech therapy consulted for swallow evaluation. She had aspiration of pudding on 07-19-21 CXR 07-20-21: No acute cardiopulmonary findings Speech therapy suggested NPO with tube feeds Impression CT chest 07/24/21 Consolidation in the lower lobes bilaterally that is worse on the left compared to the right consistent with pneumonia. No acute or chronic pulmonary Impression CT head 07/24/21 No acute intracranial abnormality. Chronic sinusitis most pronounced in the ethmoid air cells and left maxillary sinus. CURRENT EVALUATION : 08/06/2021 The patient was evaluated in the ICU Afebrile VS stable The patient remains on mechanical ventilation with 30% FiO2 Precedex for sedation. She opens eyes to voice but is not following commands. She appears comfortable. Neurosurgery - requires xray cervical/flexion extension and open mouth odontoid view prior to surgical intervention Nafcillin continues We will continue to follow Labs, X rays reviewed: 08/06/2021 BUN: 15-->11 Cr:0.60-->0.55 WBC: 9.5-->12.3 Hb:8.6 Plat: 565 CRP: 183.3 SARS CoV2: positive 07-13-21 Cultures: Urine: Blood: 06-28-21: MSSA 06-30-21: MSSA 07-01-21: MSSA 07-02-21: MSSA 07-03-21: MSSA 07-04-21: MSSA 07-07-21: No growth 07-08-21: No growth 07-13-21: No growth 07/14/21: No growth 07/17/21: No growth 07-22-21: No growth X 2 Sputum : 07/24/21: Klebsiella Aerogenes Wound: Cervical tissue neck: 07-06-21: No growth 07-26-21 CT Chest 07/24/21 07/15/21 CXR 07/24/21 07-13-21: Impression MRI Brain and cervical spine 07/26/21 Cervical spine MRI: 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 Pathologic fracture of dense process of C2 is associated with its retroflexion and mild narrowing at the craniocervical junction. Mild degenerative findings of cervical spine as described. Brain MRI: There is no acute infarction, intracranial hemorrhage, or intracranial mass lesion. Mild chronic microangiopathic ischemic disease. Mild generalized volume loss. Severe mucosal thickening of frontal ethmoidal maxillary and sphenoid sinuses. Moderate mucosal thickening of mastoid air cells. Impression CT chest/abd/pelvis 07/15/21 Subsegmental atelectasis and consolidation left lower lobe which may represent pneumonia with associated small left pleural effusion which is more apparent. Recommend follow-up until resolution. Mild subsegmental infiltrate or atelectasis right lower lobe. Hazy ground-glass opacities along the right lower lobe and lingula which could represent early infiltrates from multisegmental bronchopneumonia and is more prominent. Small pericardial effusion which is more apparent Borderline enlarged mediastinal lymph nodes which are more prominent and are probably reactive in etiology. Recommend follow-up. I have personally reviewed the past medical history, past surgical history, medications, social history, and family history, and I have updated the database accordingly. 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 LEFT C2 RHIZOTOMY, EXPLORATION OF EPIDURAL PHLEGMON performed by Alisia Crump DO at [facility] OR CHOLECYSTECTOMY EYE SURGERY [address] shunt for open angle glaucoma. MRI compatible- device is all silicone LAMINECTOMY 07/06/2021 Posterior C1, LEFT C2 RHIZOTOMY, EXPLORATION OF EPIDURAL PHLEGMON PICC INSERTION VASCULAR ACCESS TEAM 07/10/2021 SHOULDER SURGERY right TRACHEOSTOMY 07/30/2021 TRACHEOSTOMY N/A 07/30/2021 TRACHEOTOMY performed by Erica Santiago MD at [facility] OR UPPER GASTROINTESTINAL ENDOSCOPY N/A 07/02/2021 EGD ESOPHAGOGASTRODUODENOSCOPY performed by Hari Wagner MD at [facility] Endoscopy Medications: insulin glargine 15 Units SubCUTAneous Nightly chlordiazePOXIDE 10 mg Oral TID insulin lispro 0-12 Units SubCUTAneous Q6H metoclopramide 5 mg IntraVENous Q6H famotidine 20 mg Per NG tube BID valproic acid 250 mg Per NG tube BID oxyCODONE 10 mg Oral Q6H carvedilol 25 mg Oral BID WC latanoprost 1 drop Both Eyes Nightly [Held by provider] lactobacillus 1 capsule Oral Daily with breakfast [Held by provider] gabapentin 200 mg Oral TID nafcillin 2,000 mg IntraVENous Q6H [Held by provider] aspirin 325 mg Oral Daily [Held by provider] calcium carbonate-vitamin D3 2 tablet Oral Daily [Held by provider] levothyroxine 100 mcg Oral Daily enoxaparin 40 mg SubCUTAneous Daily Social History: Social History Socioeconomic History Marital status: Spouse name: Not on file Number of children: Not on file Years of education: Not on file Highest education level: Not on file Occupational History Not on file Tobacco Use Smoking status: Former Smoker Years: 20.00 Types: Cigarettes Quit date: 10/06/1995 Years since quittin.8 Smokeless tobacco: Never Used Substance and Sexual Activity Alcohol use: No Drug use: No Sexual activity: Not on file Other Topics Concern Not on file Social History Narrative Not on file Social Determinants of Health Financial Resource Strain: Difficulty of Paying Living Expenses: Not on file Food Insecurity: Worried About Running Out of Food in the Last Year: Not on file Ran Out of Food in the Last Year: Not on file Transportation Needs: Lack of Transportation (Medical): Not on file Lack of Transportation (Non-Medical): Not on file Physical Activity: Days of Exercise per Week: Not on file Minutes of Exercise per Session: Not on file Stress: Feeling of Stress : Not on file Social Connections: Frequency of Communication with Friends and Family: Not on file Frequency of Social Gatherings with Friends and Family: Not on file Attends Mosque Services: Not on file Active Member of Clubs or Organizations: Not on file Attends Club or Organization Meetings: Not on file Marital Status: Not on file Intimate Partner Violence: Fear of Current or Ex-Partner: Not on file Emotionally Abused: Not on file Physically Abused: Not on file Sexually Abused: Not on file Housing Stability: Unable to Pay for Housing in the Last Year: Not on file Number of Places Lived in the Last Year: Not on file Unstable Housing in the Last Year: Not on file Family History: Family History Problem Relation Age of Onset Diabetes Mother Cancer Father Allergies: Moxifloxacin, Peg 3350-electrolytes, Tapentadol, Avelox [moxifloxacin hydrochloride], and Cephalexin Review of Systems: Unable to perform ROS, trach to vent Physical Examination : Patient Vitals for the past 8 hrs: BP Temp Temp src Pulse Resp SpO2 08/06/21 0900 73 15 100 % 08/06/21 0828 70 15 100 % 08/06/21 0800 127/70 97.9 F (36.6 C) Oral 71 15 100 % 08/06/21 0600 138/71 74 15 100 % 08/06/21 0551 96.8 F (36 C) 08/06/21 0500 73 12 100 % 08/06/21 0400 130/68 08/06/21 0350 97.6 F (36.4 C) Axillary 08/06/21 0321 81 15 100 % General Appearance: Sedated, trach to vent Head: Normocephalic, no trauma ENT: Tracheostomy to vent Neck:Supple, without lymphadenopathy. cervical collar in place Pulmonary/Chest: Clear to auscultation, without wheezes, rales, or rhonchi. Cardiovascular: Regular rate and rhythm without murmurs, rubs, or gallops. Abdomen: Soft, non tender. Bowel sounds normal. All four Extremities: No cyanosis, clubbing, edema, or effusions. Neurologic: She does not respond to me but RN does tell me that she followed simple commands earlier today Skin: Warm and dry with good turgor. Medical Decision Making -Laboratory: I have independently reviewed/ordered the following labs: CBC with Differential: Recent Labs 08/05/21 0438 08/06/21 0344 WBC 9.5 12.3* HGB 7.7* 8.6* HCT 24.2* 26.3* PLT 458* 565* LYMPHOPCT 19* 17* MONOPCT 6 5 BMP: Recent Labs 08/04/21 0440 08/04/21 0440 08/05/21 0438 08/06/21 0344 NA 141 < > 143 143 K 3.5* < > 3.5* 3.6* CL 108* < > 109* 109* CO2 22 < > 23 23 BUN 17 < > 14 11 CREATININE 0.57 < > 0.53 0.55 MG 1.9 -- 1.8 -- < > = values in this interval not displayed. Hepatic Function Panel: No results for input(s): PROT, LABALBU, BILIDIR, IBILI, BILITOT, ALKPHOS, ALT, AST in the last 72 hours. No results for input(s): RPR in the last 72 hours. No results for input(s): HIV in the last 72 hours. No results for input(s): BC in the last 72 hours. Lab Results Component Value Date RBC 2.70 08/06/2021 WBC 12.3 08/06/2021 TURBIDITY Clear 07/18/2021 Lab Results Component Value Date CREATININE 0.55 08/06/2021 GLUCOSE 48 08/06/2021 GLUCOSE 229 06/04/2011 Medical Decision Making-Imaging: No new imaging Medical Decision [id number]-[id number]: SARS-CoV-2, Rapid COVID-19, Rapid Collected: 07/13/21 9279 Result status: Final Resulting lab: [facility] Reference range: Not Detected Value: DETECTED Abnormal Comment: Rapid NAAT: The specimen is POSITIVE for SARS-Cov-2, the novel coronavirus associated with COVID-19. This test has been authorized by the FDA under an Emergency Use Authorization (EUA) for use by authorized laboratories. The ID NOW COVID-19 assay is designed to detect the virus that causes COVID-19 in patients with signs and symptoms of infection who are suspected of COVID-19. An individual without symptoms of COVID-19 and who is not shedding SARS-CoV-2 virus would expect to have a negative (not detected) result in this assay. Fact sheet for Healthcare Providers: https://www.fda.gov/media/053216/downl oad Fact sheet for Patients: https://www.fda.gov/media/355348/downl oad Methodology: Isothermal Nucleic Acid Amplification Culture, Respiratory Order: [id number] Status: Final result Visible to patient: No (not released) Next appt: Today at 02:30 PM in Radiology (STV MRI RM 1 (1.5T)) Specimen Information: Sputum Aspirated 0 Result Notes Component 07/24/21 1935 Specimen Description .ASPIRATED SPUTUM Direct Exam < 10 EPITHELIAL CELLS/LPF Direct Exam >25 NEUTROPHILS/LPF Direct Exam MANY GRAM NEGATIVE RODS Abnormal Culture KLEBSIELLA AEROGENES HEAVY GROWTH Abnormal Culture NO NORMAL ROB Resulting Agency [facility] - [facility] Susceptibility Klebsiella aerogenes (1) Antibiotic Interpretation Microscan Method Status aztreonam Sensitive <=1 BACTERIAL SUSCEPTIBILITY PANEL BECKY Final ceFAZolin Resistant BACTERIAL SUSCEPTIBILITY PANEL BECKY Final cefTRIAXone Sensitive <=1 BACTERIAL SUSCEPTIBILITY PANEL BECKY Final ciprofloxacin Sensitive <=0.25 BACTERIAL SUSCEPTIBILITY PANEL BECKY Final gentamicin Sensitive <=1 BACTERIAL SUSCEPTIBILITY PANEL BECKY Final tobramycin Sensitive <=1 BACTERIAL SUSCEPTIBILITY PANEL BECKY Final trimethoprim-sulfamethoxazole Sensitive <=20 BACTERIAL SUSCEPTIBILITY PANEL BECKY Final piperacillin-tazobactam Sensitive 16 BACTERIAL SUSCEPTIBILITY PANEL BECKY Final Thank you for allowing us to participate in the care of this patient. Please call with questions. Jany Francis, GUEST RELATIONS COORDINATOR - LAND SURVEYING MANAGER ATTESTATION: I have discussed the case, including pertinent history and exam findings with the GUEST RELATIONS COORDINATOR. I have evaluated the History, physical findings and pictures of the patient and the coffey elements of the encounter have been performed by me. I have reviewed the laboratory data, other diagnostic studies and discussed them with the GUEST RELATIONS COORDINATOR. I have updated the medical record where necessary. I agree with the assessment, plan and orders as documented by the GUEST RELATIONS COORDINATOR. Seth Stokes MD. Critical Care Team - Daily Progress Note Date and time: 08/06/2021 7:27 AM Patient's name: Meg Georges Patient's account/billing number: [id number] Patient's Date of : 1965 Age: 56 y.o. Date of Admission: 07/14/2021 4:12 PM Length of stay during current admission: 23 Primary Care Physician: Neri Santa Sr, DO ICU Attending Physician: Dr. Willoughby Code Status: Full Code Reason for ICU admission: No chief complaint on file. covid -19 SUBJECTIVE: OVERNIGHT EVENTS: No acute overnight events, hemodynamically stable, afebrile Patient continues to require Precedex ID following-continues to be on nafcillin 08/15/21 Potassium replaced this morning Neurosurgery - needs xray cervical/flexion extension and open mouth odontoid view when able HISTORY OF PRESENT ILLNESS: Meg Georges is a 56 y.o. 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 Patient was to be discharged this morning however she became unresponsive and tachypneic. ICU team responded to rapid response. Patient was put on nonrebreather. Patient was found to have stridorous respiration and tachypnea was noted. Patient was not responsive to voice, touch, pain. Pupil responses intact bilaterally. Breath sounds decreased left side. Due to stridorous respirations and altered mental status, decision was made to intubate patient. Patient had C1 laminectomy, left C2 rhizotomy, exploration of epidural phlegmon on July 06, 2021. MRI of the cervical spine confirmed small epidural abscess at C1 and C2 level with progressive compression of the brainstem. Blood cultures had been positive for 6 days despite antibiotics, surgery was done to drain abscess. Cultures had no growth. On July 13, 2021 patient was sent to the ED in [facility] from outpatient infusion center where she had been getting 2 units of PRBC and potassium. During the infusion her blood pressure increased to 180s with a headache. Initial labs in the ED noted WBC 8, potassium 2.2, normal LFTs. Magnesium 1.5. Patient was found to be COVID-positive with superimposed lower left lobe pneumonia. Started on Zosyn 3.3 g. Transferred to our hospital on July 14, 2021. Patient received dexamethasone on July 14 and July 15. Patient was given that bebtelovimab infusion on July 15. Cefazolin 07/16-07/18. Nafcillin 1000mg 07/16, increased to 2000 mg on July 18. Cervical phlegmon culture no growth. May have concern for osteomyelitis in the bone. Blood cultures negative to date. Patient was set to be discharged this morning when she became unresponsive and rapid was called. Review of Systems Unable to perform OBJECTIVE: VITAL SIGNS: BP 138/71 Pulse 74 Temp 96.8 F (36 C) Resp 15 Ht 5' 5 (1.651 m) Wt 133 lb 6.1 oz (60.5 kg) LMP 12/02/2011 SpO2 100% BMI 22.20 kg/m Tmax over 24 hours: Temp (24hrs), Av F (36.7 C), Min:96.8 F (36 C), Max:98.6 F (37 C) Patient Vitals for the past 8 hrs: BP Temp Temp src Pulse Resp SpO2 Weight 08/06/21 0600 138/71 74 15 100 % 08/06/21 0551 96.8 F (36 C) 08/06/21 0500 73 12 100 % 08/06/21 0400 130/68 08/06/21 0350 97.6 F (36.4 C) Axillary 08/06/21 0321 81 15 100 % 08/06/21 0200 97.7 F (36.5 C) Axillary 80 15 100 % 133 lb 6.1 oz (60.5 kg) 08/06/21 0100 82 15 100 % 08/06/21 0000 98.3 F (36.8 C) Axillary 82 15 100 % 08/05/21 2335 84 15 100 % Intake/Output Summary (Last 24 hours) at 08/06/2021 0727 Last data filed at 08/06/2021 0633 Gross per 24 hour Intake 1336.92 ml Output 2955 ml Net -1618.08 ml Date 08/06/21 0000 - 08/06/21 2359 Shift 4595-6185 8129-4851 1993-6884 24 Hour Total INTAKE I.V.(mL/kg) 244.5(4) 244.5(4) NG/GT(mL/kg) 105(1.7) 105(1.7) IV Piggyback(mL/kg) 200(3.3) 200(3.3) Shift Total(mL/kg) 549.5(9.1) 549.5(9.1) OUTPUT Urine(mL/kg/hr) 950 950 Stool(mL/kg) 150(2.5) 150(2.5) Shift Total(mL/kg) 1100(18.2) 1100(18.2) Weight (kg) 60.5 60.5 60.5 60.5 Wt Readings from Last 3 Encounters: 08/06/21 133 lb 6.1 oz (60.5 kg) 07/13/21 140 lb (63.5 kg) 07/10/21 161 lb 11.2 oz (73.3 kg) Body mass index is 22.2 kg/m . PHYSICAL EXAM: General: No acute distress, trach, on sedation HEENT: Trach in place. Some purulent discharge, foul smelling, erythema. Normocephalic, atraumatic. Cardiovascular: Normal cardiac rate present, sinus rhythm on telemetry. Pulmonary: Mechanical breath sounds bilaterally Abdominal: Soft, nondistended, nontender. No palpable masses. Neuro: Opens eyes to touch. Skin: erythema around trach site MEDICATIONS: Scheduled Meds: insulin glargine 15 Units SubCUTAneous Nightly chlordiazePOXIDE 10 mg Oral TID insulin lispro 0-12 Units SubCUTAneous Q6H metoclopramide 5 mg IntraVENous Q6H famotidine 20 mg Per NG tube BID valproic acid 250 mg Per NG tube BID oxyCODONE 10 mg Oral Q6H carvedilol 25 mg Oral BID WC latanoprost 1 drop Both Eyes Nightly [Held by provider] lactobacillus 1 capsule Oral Daily with breakfast [Held by provider] gabapentin 200 mg Oral TID nafcillin 2,000 mg IntraVENous Q6H [Held by provider] aspirin 325 mg Oral Daily [Held by provider] calcium carbonate-vitamin D3 2 tablet Oral Daily [Held by provider] levothyroxine 100 mcg Oral Daily enoxaparin 40 mg SubCUTAneous Daily Continuous Infusions: dexmedetomidine 0.9 mcg/kg/hr (08/06/21 0655) sodium chloride 10 mL/hr at 08/06/21 0633 sodium chloride dextrose PRN Meds: magnesium hydroxide, 30 mL, Daily PRN Loperamide HCl, 2 mg, 4x Daily PRN bisacodyl, 10 mg, Daily PRN sodium chloride, , PRN LORazepam, 2 mg, Q4H PRN potassium chloride, 40 mEq, PRN Or potassium alternative oral replacement, 40 mEq, PRN Or potassium chloride, 10 mEq, PRN fentanNYL, 25 mcg, Q1H PRN sodium chloride flush, 5-40 mL, PRN ondansetron, 4 mg, Q8H PRN Or ondansetron, 4 mg, Q6H PRN acetaminophen, 650 mg, Q6H PRN Or acetaminophen, 650 mg, Q6H PRN dextromethorphan-guaiFENesin, 5 mL, Q4H PRN dextrose bolus, 125 mL, PRN Or dextrose bolus, 250 mL, PRN glucagon (rDNA), 1 mg, PRN dextrose, 100 mL/hr, PRN magnesium sulfate, 1,000 mg, PRN SUPPORT DEVICES: [x] Ventilator [] BIPAP [] Nasal Cannula [] Room Air VENT SETTINGS (Comprehensive) (if applicable): PRVC mode, FiO2 30%, PEEP 5, Respiratory Rate 15, Tidal Volume 450 Vent Information Ventilator ID: [id number] Vent Mode: PRVC Ventilator Discontinue: (S) Yes Additional Respiratory Assessments Heart Rate: 74 Resp: 15 SpO2: 100 % End Tidal CO2: 34 (%) Position: Semi-Simon's Humidification Source: HME Skin Barrier Applied: (Mepilex placed after trach change) Lab Results Component Value Date PHART 7.406 07/06/2021 [id number] 34.8 07/06/2021 PO2ART 279.0 07/06/2021 [id number] 21.4 07/06/2021 [id number] 99.4 07/06/2021 FIO2 30.0 08/05/2021 Lactic Acid: Lab Results Component Value Date LACTA 1.0 07/13/2021 LACTA 1.6 06/28/2021 DATA: Complete Blood Count: Recent Labs 08/04/2143908/05/2143708/06/21 034 WBC 10.5 9.5 12.3* HGB 8.0* 7.7* 8.6* MCV 95.6 98.0 97.4 PLT 429 458* 565* RBC 2.48* 2.47* 2.70* HCT 23.7* 24.2* 26.3* MCH 32.3 31.2 31.9 MCHC 33.8 31.8 32.7 RDW 18.4* 18.3* 18.0* MPV 8.7 8.6 8.4 PT/INR: Lab Results Component Value Date PROTIME 13.1 07/25/2021 INR 1.2 07/25/2021 PTT: Lab Results Component Value Date APTT 23.9 06/28/2021 Basal Metabolic Profile: Recent Labs 08/04/210 08/05/21 0438 08/06/21 0344 NA 141 143 143 K 3.5* 3.5* 3.6* BUN 17 14 11 CREATININE 0.57 0.53 0.55 CL 108* 109* 109* CO2 22 23 23 Magnesium: Lab Results Component Value Date MG 1.8 08/05/2021 MG 1.9 08/04/2021 MG 1.7 08/02/2021 Phosphorus: Lab Results Component Value Date PHOS 1.9 07/17/2021 S. Calcium: Recent Labs 08/06/21 034 CALCIUM 8.5* S. Ionized Calcium:No results for input(s): IONCA in the last 72 hours. Urinalysis: Lab Results Component Value Date NITRU NEGATIVE 07/18/2021 COLORU Yellow 07/18/2021 PHUR 8.5 07/18/2021 WBCUA 2 TO 5 07/18/2021 RBCUA 20 TO 50 07/18/2021 BACTERIA MANY 07/07/2021 SPECGRAV 1.010 07/18/2021 LEUKOCYTESUR NEGATIVE 07/18/2021 UROBILINOGEN Normal 07/18/2021 BILIRUBINUR NEGATIVE 07/18/2021 GLUCOSEU NEGATIVE 07/18/2021 KETUA SMALL 07/18/2021 CARDIAC ENZYMES: No results for input(s): CKMB, CKMBINDEX, TROPONINI in the last 72 hours. Invalid input(s): CKTOTAL;3 BNP: No results for input(s): BNP in the last 72 hours. LFTS No results for input(s): ALKPHOS, ALT, AST, BILITOT, BILIDIR, LABALBU in the last 72 hours. AMYLASE/LIPASE/AMMONIA Recent Labs 08/04/21 0440 LIPASE 16 Last 3 Blood Glucose: Recent Labs 08/04/21 0440 08/05/21 0438 08/06/21 0344 GLUCOSE 195* 121* 48* HgBA1c: Lab Results Component Value Date LABA1C 9.4 06/28/2021 TSH: Lab Results Component Value Date TSH 2.06 07/24/2021 ANEMIA STUDIES No results for input(s): LABIRON, TIBC, FERRITIN, [id number], FOLATE, OCCULTBLD in the last 72 hours. Cultures during this admission: Blood cultures: [] None drawn [x] Negative [] Positive (Details: ) Urine Culture: [x] None drawn [] Negative [] Positive (Details: ) Sputum Culture: [] None drawn [] Negative [x] Positive (Details: 07/25/21 gram- Klebsiella, completed levaquin 7 days) Endotracheal aspirate: [x] None drawn [] Negative [] Positive (Details: ) Chest Xray (08/06/2021): ASSESSMENT: 1. Spinal epidural abscess 2. Pneumonia 3. Odontoid fracture 4. Anemia 5. Psoas hematoma 6. 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 H/o intractable headaches -Continue depakene per neurology Cardiovascular: Hemodynamically stable MAP goal 65 Echo 07/02/21 - EF 55% HTN - continue coreg 25 bid Pulmonary: Maintain oxygen sats >92% On ventilator- PRVC 30%, 15/400/5 S/p tracheostomy on 07/30; trach change 08/04/21 Lower lobe bilateral pneumonia,Respiratory culture 07/24 - heavy growth klebsiella aerogens; s/p Levaquin ; stopped 07/31 GI/Nutrition Ulcer Prophylaxis: famotidine 20mg bid Diet: NPO Continue tube feeds Renal/Fluid/Electrolyte BMP unremarkable , potassium replaced UOP 1.7cc/kg/hr overnight ID Afebrile WBC 12.3 (9.5) CAP treated; s/p levaquin Spinal epidural abscess - continue nafcillin per ID; tentative stop date 08/15/21 Hematology: Hb 8.6 (7.7) Platelets 565 (458) Endocrine: Uncontrolled DM type 2 Hypoglycemic overnight, 43; Lantus decreased to 15U nightly Also on medium dose sliding scale MSK: -Psoas Hematoma-likely source of drop in hemoglobin, general surgery consulted, no acute intervention indicated. Hb stable 8.6 DVT Prophylaxis Lovenox Discharge Needs: pending clinical course; to remain ICU while on PRVC with trach CODE STATUS: Full Code Missy Moore MD Department of Internal Medicine/ Critical care [facility]) 08/06/2021, 7:27 AM Attending Physician Statement I have discussed the care of Meg Georges, including pertinent history and exam findings, with the resident. I have seen and examined the patient and the coffey elements of all parts of the encounter have been performed by me. I agree with the assessment, plan and orders as documented by the resident with additions . Restart gabapentin Will wean librium as woody Continue ng tube and tf Cont vent support and daily sbt Will need to hold off peg due to c collar Total critical care time caring for this patient with life threatening, unstable organ failure, including direct patient contact, management of life support systems, review of data including imaging and labs, discussions with other team members and physicians at least 30 Min so far today, excluding procedures. Please note that this chart was generated using voice recognition [employer] dictation software. Although every effort was made to ensure the accuracy of this automated dampener, some errors in dampener may have occurred. Images from the original note were not included. Critical Care Team - Daily Progress Note Date and time: 08/05/2021 1:52 PM Patient's name: Meg Barton Patient's account/billing number: [id number] Patient's Date of : 1965 Age: 56 y.o. Date of Admission: 07/14/2021 4:12 PM Length of stay during current admission: 22 Primary Care Physician: Neri Santa Sr, DO ICU Attending Physician: Dr. Willoughby Code Status: Full Code Reason for ICU admission: No chief complaint on file. SUBJECTIVE: OVERNIGHT EVENTS: No acute overnight events, hemodynamically stable, afebrile Trach change yesterday 08/04/2021,stoma looks good per ENT; start on mepilex for inflammation at area of sutures; signed off Patient continues to require Precedex ID following-continues to be on nafcillin 08/15/21 Potassium replaced this morning Neurosurgery - needs xray cervical/flexion extension and open mouth odontoid view when able [facility] B.I.[facility] Feeding Diet: Diet NPO ADULT TUBE FEEDING; Nasogastric; Peptide Based; Continuous; 50; No; 30; Q 4 hours Fluids: NS at 10 cc/hour Family: will update Analgesic: fentanyl 25 q1h and eva 10 q6h Sedation: precedex gtt Thrombo-prophylaxis: [x] Enoxaparin, [] Unfract. Heparin Subcutaneously, [] EPC Cuffs Mobility: As tolerated Heads up: 30 degree Ulcer prophylaxis: [] PPI Agent, [x] R7Ddhcg, [] Sucralfate, [] Other: Glycemic control: Controlled on current regimen Spontaneous breathing trial: Not indicated Bowel regimen/urine output: dulcolax and imodium prn/ 950/24 hours Indwelling catheter/lines: PICC 07/10; R fem cvc 07/24/21; art line 07/24/21 De-escalation: Get PICC line, remove femoral line HISTORY OF PRESENT ILLNESS: Meg Georges is a 56 y.o. 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 Patient was to be discharged this morning however she became unresponsive and tachypneic. ICU team responded to rapid response. Patient was put on nonrebreather. Patient was found to have stridorous respiration and tachypnea was noted. Patient was not responsive to voice, touch, pain. Pupil responses intact bilaterally. Breath sounds decreased left side. Due to stridorous respirations and altered mental status, decision was made to intubate patient. Patient had C1 laminectomy, left C2 rhizotomy, exploration of epidural phlegmon on July 06, 2021. MRI of the cervical spine confirmed small epidural abscess at C1 and C2 level with progressive compression of the brainstem. Blood cultures had been positive for 6 days despite antibiotics, surgery was done to drain abscess. Cultures had no growth. On July 13, 2021 patient was sent to the ED in [facility] from outpatient infusion center where she had been getting 2 units of PRBC and potassium. During the infusion her blood pressure increased to 180s with a headache. Initial labs in the ED noted WBC 8, potassium 2.2, normal LFTs. Magnesium 1.5. Patient was found to be COVID-positive with superimposed lower left lobe pneumonia. Started on Zosyn 3.3 g. Transferred to our hospital on July 14, 2021. Patient received dexamethasone on July 14 and July 15. Patient was given that bebtelovimab infusion on July 15. Cefazolin 07/16-07/18. Nafcillin 1000mg 07/16, increased to 2000 mg on July 18. Cervical phlegmon culture no growth. May have concern for osteomyelitis in the bone. Blood cultures negative to date. Patient was set to be discharged this morning when she became unresponsive and rapid was called. Review of Systems Unable to perform OBJECTIVE: VITAL SIGNS: BP 134/66 Pulse 78 Temp 98.2 F (36.8 C) (Oral) Resp 14 Ht 5' 5 (1.651 m) Wt 140 lb 10.5 oz (63.8 kg) LMP 12/02/2011 SpO2 100% BMI 23.41 kg/m Tmax over 24 hours: Temp (24hrs), Av F (36.7 C), Min:97.6 F (36.4 C), Max:98.4 F (36.9 C) Patient Vitals for the past 8 hrs: BP Temp Temp src Pulse Resp SpO2 Weight 08/05/21 1200 98.2 F (36.8 C) Oral 78 14 100 % 08/05/21 1120 79 15 100 % 08/05/21 1100 134/66 79 15 100 % 08/05/21 1000 (!) 158/70 97.8 F (36.6 C) Oral 78 15 100 % 08/05/21 0900 (!) 163/72 77 15 100 % 08/05/21 0800 (!) 157/69 97.7 F (36.5 C) Oral 75 15 100 % 08/05/21 0736 75 15 100 % 08/05/21 0700 74 (!) 0 100 % 08/05/21 0630 74 (!) 0 100 % 08/05/21 0600 98 F (36.7 C) Oral 73 15 100 % 140 lb 10.5 oz (63.8 kg) Intake/Output Summary (Last 24 hours) at 08/05/2021 1352 Last data filed at 08/05/2021 1143 Gross per 24 hour Intake 1376.11 ml Output 2005 ml Net -628.89 ml Date 08/05/21 0000 - 08/05/21 2359 Shift 5870-3611 5755-1593 6875-9456 24 Hour Total INTAKE I.V.(mL/kg) 223.2(3.5) 86.6(1.4) 309.8(4.9) NG/GT(mL/kg) 60(0.9) 117(1.8) 177(2.8) IV Piggyback(mL/kg) 197.8(3.1) 100(1.6) 297.8(4.7) Shift Total(mL/kg) 481(7.5) 303.6(4.8) 784.6(12.3) OUTPUT Urine(mL/kg/hr) 800(1.6) 150 950 Emesis/NG output(mL/kg) 0(0) 0(0) Stool(mL/kg) 250(3.9) 5(0.1) 255(4) Shift Total(mL/kg) 1050(16.5) 155(2.4) 1205(18.9) Weight (kg) 63.8 63.8 63.8 63.8 Wt Readings from Last 3 Encounters: 08/05/21 140 lb 10.5 oz (63.8 kg) 07/13/21 140 lb (63.5 kg) 07/10/21 161 lb 11.2 oz (73.3 kg) Body mass index is 23.41 kg/m . PHYSICAL EXAM: General: No acute distress, trach, on sedation HEENT: Trach in place. Some purulent discharge, foul smelling, erythema. Normocephalic, atraumatic. Cardiovascular: Normal cardiac rate present, sinus rhythm on telemetry. Pulmonary: Mechanical breath sounds bilaterally Abdominal: Soft, nondistended, nontender. No palpable masses. Neuro: Opens eyes to touch. Skin: erythema around trach site MEDICATIONS: Scheduled Meds: chlordiazePOXIDE 10 mg Oral TID insulin glargine 20 Units SubCUTAneous Nightly insulin lispro 0-12 Units SubCUTAneous Q6H metoclopramide 5 mg IntraVENous Q6H famotidine 20 mg Per NG tube BID valproic acid 250 mg Per NG tube BID oxyCODONE 10 mg Oral Q6H carvedilol 25 mg Oral BID WC latanoprost 1 drop Both Eyes Nightly [Held by provider] lactobacillus 1 capsule Oral Daily with breakfast [Held by provider] gabapentin 200 mg Oral TID nafcillin 2,000 mg IntraVENous Q6H [Held by provider] aspirin 325 mg Oral Daily [Held by provider] calcium carbonate-vitamin D3 2 tablet Oral Daily [Held by provider] levothyroxine 100 mcg Oral Daily enoxaparin 40 mg SubCUTAneous Daily Continuous Infusions: dexmedetomidine 0.6 mcg/kg/hr (08/05/21 1143) sodium chloride 10 mL/hr at 08/05/21 114 sodium chloride dextrose PRN Meds: magnesium hydroxide, 30 mL, Daily PRN Loperamide HCl, 2 mg, 4x Daily PRN bisacodyl, 10 mg, Daily PRN sodium chloride, , PRN LORazepam, 2 mg, Q4H PRN potassium chloride, 40 mEq, PRN Or potassium alternative oral replacement, 40 mEq, PRN Or potassium chloride, 10 mEq, PRN fentanNYL, 25 mcg, Q1H PRN sodium chloride flush, 5-40 mL, PRN ondansetron, 4 mg, Q8H PRN Or ondansetron, 4 mg, Q6H PRN acetaminophen, 650 mg, Q6H PRN Or acetaminophen, 650 mg, Q6H PRN dextromethorphan-guaiFENesin, 5 mL, Q4H PRN dextrose bolus, 125 mL, PRN Or dextrose bolus, 250 mL, PRN glucagon (rDNA), 1 mg, PRN dextrose, 100 mL/hr, PRN magnesium sulfate, 1,000 mg, PRN SUPPORT DEVICES: [x] Ventilator [] BIPAP [] Nasal Cannula [] Room Air VENT SETTINGS (Comprehensive) (if applicable): PRVC mode, FiO2 30%, PEEP 5, Respiratory Rate 15, Tidal Volume 450 Vent Information Ventilator ID: [id number] Vent Mode: PRVC Ventilator Discontinue: (S) Yes Additional Respiratory Assessments Heart Rate: 78 Resp: 14 SpO2: 100 % End Tidal CO2: 32 (%) Position: Semi-Simon's Humidification Source: HME Skin Barrier Applied: (Mepilex placed after trach change) Lab Results Component Value Date PHART 7.406 07/06/2021 [id number] 34.8 07/06/2021 PO2ART 279.0 07/06/2021 [id number] 21.4 07/06/2021 [id number] 99.4 07/06/2021 FIO2 30.0 08/05/2021 Lactic Acid: Lab Results Component Value Date LACTA 1.0 07/13/2021 LACTA 1.6 06/28/2021 DATA: Complete Blood Count: Recent Labs 08/03/21 0446 08/04/21 0440 08/05/21 0438 WBC 11.9* 10.5 9.5 HGB 8.3* 8.0* 7.7* MCV 94.3 95.6 98.0 PLT 429 429 458* RBC 2.63* 2.48* 2.47* HCT 24.8* 23.7* 24.2* MCH 31.6 32.3 31.2 MCHC 33.5 33.8 31.8 RDW 18.5* 18.4* 18.3* MPV 8.8 8.7 8.6 PT/INR: Lab Results Component Value Date PROTIME 13.1 07/25/2021 INR 1.2 07/25/2021 PTT: Lab Results Component Value Date APTT 23.9 06/28/2021 Basal Metabolic Profile: Recent Labs 08/03/21 0446 08/04/21 0440 08/05/21 0438 NA 139 141 143 K 3.6* 3.5* 3.5* BUN 15 17 14 CREATININE 0.60 0.57 0.53 CL 107 108* 109* CO2 23 Magnesium: Lab Results Component Value Date MG 1.8 08/05/2021 MG 1.9 08/04/2021 MG 1.7 08/02/2021 Phosphorus: Lab Results Component Value Date PHOS 1.9 07/17/2021 S. Calcium: Recent Labs 08/05/21 0438 CALCIUM 8.5* S. Ionized Calcium:No results for input(s): IONCA in the last 72 hours. Urinalysis: Lab Results Component Value Date NITRU NEGATIVE 07/18/2021 COLORU Yellow 07/18/2021 PHUR 8.5 07/18/2021 WBCUA 2 TO 5 07/18/2021 RBCUA 20 TO 50 07/18/2021 BACTERIA MANY 07/07/2021 SPECGRAV 1.010 07/18/2021 LEUKOCYTESUR NEGATIVE 07/18/2021 UROBILINOGEN Normal 07/18/2021 BILIRUBINUR NEGATIVE 07/18/2021 GLUCOSEU NEGATIVE 07/18/2021 KETUA SMALL 07/18/2021 CARDIAC ENZYMES: No results for input(s): CKMB, CKMBINDEX, TROPONINI in the last 72 hours. Invalid input(s): CKTOTAL;3 BNP: No results for input(s): BNP in the last 72 hours. LFTS No results for input(s): ALKPHOS, ALT, AST, BILITOT, BILIDIR, LABALBU in the last 72 hours. AMYLASE/LIPASE/AMMONIA Recent Labs 08/04/21 0440 LIPASE 16 Last 3 Blood Glucose: Recent Labs 08/03/21 0446 08/04/21 0440 08/05/21 0438 GLUCOSE 210* 195* 121* HgBA1c: Lab Results Component Value Date LABA1C 9.4 06/28/2021 TSH: Lab Results Component Value Date TSH 2.06 07/24/2021 ANEMIA STUDIES No results for input(s): LABIRON, TIBC, FERRITIN, [id number], FOLATE, OCCULTBLD in the last 72 hours. Cultures during this admission: Blood cultures: [] None drawn [x] Negative [] Positive (Details: ) Urine Culture: [x] None drawn [] Negative [] Positive (Details: ) Sputum Culture: [] None drawn [] Negative [x] Positive (Details: 07/25/21 gram- Klebsiella, completed levaquin 7 days) Endotracheal aspirate: [x] None drawn [] Negative [] Positive (Details: ) Chest Xray (08/05/2021): ASSESSMENT: 1. Spinal epidural abscess 2. Pneumonia 3. Odontoid fracture 4. Anemia 5. Psoas hematoma 6. 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 H/o intractable headaches -Continue depakene per neurology Cardiovascular: Hemodynamically stability improving: weaned norepinephrine, off pressors MAP goal 65 Echo 07/02/21 - EF 55% HTN - continue coreg 25 bid Pulmonary: Maintain oxygen sats >92% On ventilator S/p tracheostomy on 07/30; trach change 08/04/21 Lower lobe bilateral pneumonia,Respiratory culture 07/24 - heavy growth klebsiella aerogens; s/p Levaquin ; stopped 07/31 GI/Nutrition Ulcer Prophylaxis: famotidine 20mg bid Diet: NPO Continue tube feeds Renal/Fluid/Electrolyte BMP unremarkable , potassium replaced UO 950/24 hours ID Afebrile CAP treated; s/p levaquin Spinal epidural abscess - continue nafcillin per ID; tentative stop date 08/15/21 Hematology: Wbc 9.5; Hb 7.7, platelets 458 Endocrine: Uncontrolled DM type 2; started on lantus 20 U nightly; and switched to medium dose sliding scale; continue poct glucose checks q6h and hypoglycemia protocol MSK: -Psoas Hematoma-likely source of drop in hemoglobin, general surgery consulted, no acute intervention indicated. Hb stable 7.7 DVT Prophylaxis Lovenox Discharge Needs: pending clinical course CODE STATUS: Full Code Chelsea Seaman Sra, MD Department of Internal Medicine/ Critical care [facility]) 08/05/2021, 1:52 PM Associated attestation - Aniket Padron MD - 08/05/2021 4:24 PM EDT Attending Physician Statement I have discussed the case of Meg Georges, including pertinent history and exam findings with the resident/fellow/medical student/SCREED OPERATOR/PA. I have seen and examined the patient and the coffey elements of the encounter have been performed by me. I agree with the assessment, plan and orders as documented by the resident/fellow/medical student/SCREED OPERATOR/PA With changes made to the note as needed. Pt was seen during rounds. Review of Systems: In addition to the pertinent positives and negatives as stated within HPI and the review of systems as documented in their notes, all other systems were reviewed when able to and are reported negative. Patient remains on the ventilator on 30% oxygen Requiring Precedex ABG without significant acid-base disorder Supplement potassium for hypokalemia Blood sugars are acceptable Tolerating tube feeding Anemia slightly worse, continue to monitor We will start Librium 10 mg 3 times a day Continue intravenous sedation On Lovenox and Pepcid Total critical care time caring for this patient with life threatening, unstable organ failure, including direct patient contact, management of life support systems, review of data including imaging and labs, discussions with other team members and physicians at least 30 Min so far today, excluding procedures. Aniket Padron MD 08/05/2021 4:24 PM Images from the original note were not included. [facility] -Progress Note Today's Date and Time: 08/05/2021, 9:38 AM Impression : Covid 19 Covid test: 07-13-21: Positive Prior MSSA septicemia. Bacteremia persistent from 06-28-21 through 07-04-21 CIDP chronic IVIG therapy - immunosuppressed Ulcer on the left foot Allergy to keflex and avelox - tolerates PNC Prior Erosive changes at craniocervical junction by CT cervical spine 06-29-21 S/P cervical spine surgery on 07-06-21 for relief of pressure from an epidural plegmon, causing compression of cervical medullary junction. Phlegmon found, no abscess. Cultures no growth. Bone described as soft raising concern for osteomyelitis. Hx of Hypothyroidism Diabetes mellitus type 2 Essential hypertension Acute respiratory failure 07/24/21 Recommendations: Covid treatment: Bebtelovimab infusion received 07-15-21 Decadron: Not indicated Remdesivir not indicated Actemra: not indicated Antimicrobial treatment: Continue nafcillin. Tentative Stop date 08-15-21 (6 weeks Rx) Concern for nafcillin induced hypokalemia-Improving KCl replacement for hypokalemia Nausea and vomiting with Cefazolin Sputum culture ordered 07/24/21-Klebsiella heavy growth Levaquin IV 750 mg daily x 7 days initiated 07/25/21. Stop date 08-01-21 Medical Decision Making/Summary/Discussion:08/05/2021 Patient intubated 07/24/21 for acute respiratory failure. MRI Brain and Cervical spine 07/26/21: Findings suggestive of osteomyelitis at the skull base including clivus, occipital condyles and C1 and C2 with associated pathologic fracture of C2. There is a 4.1 cm abscess collection within the posterior paraspinal soft tissues at the level of the skull base. Improved compression of cervical medullary junction from prior MRI Trach placed 07/30/21 per ENT Infection Control Recommendations [place] Precautions Isolate for Covid until 07-23-21 Antimicrobial Stewardship Recommendations Simplification of therapy Targeted therapy Coordination of Outpatient Care: Estimated Length of IV antimicrobials: 08-15-21 Patient will need Midline Catheter Insertion: no Patient will need PICC line Insertion:no Patient will need: Home IV , Infusion Center, SNF, LTAC: TBD Patient will need outpatient wound care:No Chief complaint/reason for consultation: Covid 19 MSSA septicemia Osteomyelitis cervical spine History of Present Illness: Meg Georges is a 56 y.o.-year-old female who was initially admitted on 07/14/2021. Patient seen at the request of . INITIAL HISTORY: Patient known to our service because of prior admission on 06-28-21 when she presented with altered mentation and was found to have a MSSA septicemia (06-28-21). She was also found to have erosive changes at the craniocervical junction which may be related to arthritis or osteomyelitis by CT cervical spine of 06-29-21. 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 Patient received treatment with Nafcillin. She also underwent cervical spine surgery on 07-06-21 for relief of pressure from an epidural plegmon/abscess, causing compression of cervical medullary junction. Soft bone and phlegmon were found but no definite abscess. Cultures of tissue yielded no growth. Patient was released to receive treatment with Nafcillin through 08-20-21. Patient was transferred back to [facility] on 07-14-21 because of a positive Covid test obtained on 07-13-21 Speech therapy consulted for swallow evaluation. She had aspiration of pudding on 07-19-21 CXR 07-20-21: No acute cardiopulmonary findings Speech therapy suggested NPO with tube feeds Impression CT chest 07/24/21 Consolidation in the lower lobes bilaterally that is worse on the left compared to the right consistent with pneumonia. No acute or chronic pulmonary Impression CT head 07/24/21 No acute intracranial abnormality. Chronic sinusitis most pronounced in the ethmoid air cells and left maxillary sinus. CURRENT EVALUATION : 08/05/2021 The patient was seen and evaluated at bedside She remains on sedation, does not follow commands for me, but RN does tell me that she followed simple commands earlier for her Labs, X rays reviewed: 08/05/2021 BUN: 15 Cr:0.60 K: 3.7-->3.3-->3.2-->3.3-->3.6 WBC: 14.2-->14.0-->14.0-->12.3-->11.9 Hb:9.3-->9.5-->9.1-->8.0-->8.3 Plat: 491-->502-->490-->398-->429 CRP: 183.3 SARS Co V2: positive 07-13-21 Cultures: Urine: Blood: 06-28-21: MSSA 06-30-21: MSSA 07-01-21: MSSA 07-02-21: MSSA 07-03-21: MSSA 07-04-21: MSSA 07-07-21: No growth 07-08-21: No growth 07-13-21: No growth 07/14/21: No growth 07/17/21: No growth 07-22-21: No growth X 2 Sputum : 07/24/21: Klebsiella Aerogenes Wound: Cervical tissue neck: 07-06-21: No growth 07-26-21 CT Chest 07/24/21 07/15/21 CXR 07/24/21 07-13-21: Impression MRI Brain and cervical spine 07/26/21 Cervical spine MRI: 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 Pathologic fracture of dense process of C2 is associated with its retroflexion and mild narrowing at the craniocervical junction. Mild degenerative findings of cervical spine as described. Brain MRI: There is no acute infarction, intracranial hemorrhage, or intracranial mass lesion. Mild chronic microangiopathic ischemic disease. Mild generalized volume loss. Severe mucosal thickening of frontal ethmoidal maxillary and sphenoid sinuses. Moderate mucosal thickening of mastoid air cells. Impression CT chest/abd/pelvis 07/15/21 Subsegmental atelectasis and consolidation left lower lobe which may represent pneumonia with associated small left pleural effusion which is more apparent. Recommend follow-up until resolution. Mild subsegmental infiltrate or atelectasis right lower lobe. Hazy ground-glass opacities along the right lower lobe and lingula which could represent early infiltrates from multisegmental bronchopneumonia and is more prominent. Small pericardial effusion which is more apparent Borderline enlarged mediastinal lymph nodes which are more prominent and are probably reactive in etiology. Recommend follow-up. I have personally reviewed the past medical history, past surgical history, medications, social history, and family history, and I have updated the database accordingly. 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 LEFT C2 RHIZOTOMY, EXPLORATION OF EPIDURAL PHLEGMON performed by Alisia Crump DO at [facility] OR CHOLECYSTECTOMY EYE SURGERY [address] shunt for open angle glaucoma. MRI compatible- device is all silicone LAMINECTOMY 07/06/2021 Posterior C1, LEFT C2 RHIZOTOMY, EXPLORATION OF EPIDURAL PHLEGMON PICC INSERTION VASCULAR ACCESS TEAM 07/10/2021 SHOULDER SURGERY right TRACHEOSTOMY 07/30/2021 TRACHEOSTOMY N/A 07/30/2021 TRACHEOTOMY performed by Erica Santiago MD at [facility] OR UPPER GASTROINTESTINAL ENDOSCOPY N/A 07/02/2021 EGD ESOPHAGOGASTRODUODENOSCOPY performed by Hari Wagner MD at [facility] Endoscopy Medications: insulin glargine 20 Units SubCUTAneous Nightly insulin lispro 0-12 Units SubCUTAneous Q6H metoclopramide 5 mg IntraVENous Q6H famotidine 20 mg Per NG tube BID valproic acid 250 mg Per NG tube BID oxyCODONE 10 mg Oral Q6H carvedilol 25 mg Oral BID WC latanoprost 1 drop Both Eyes Nightly [Held by provider] lactobacillus 1 capsule Oral Daily with breakfast [Held by provider] gabapentin 200 mg Oral TID nafcillin 2,000 mg IntraVENous Q6H [Held by provider] aspirin 325 mg Oral Daily [Held by provider] calcium carbonate-vitamin D3 2 tablet Oral Daily [Held by provider] levothyroxine 100 mcg Oral Daily enoxaparin 40 mg SubCUTAneous Daily Social History: Social History Socioeconomic History Marital status: Spouse name: Not on file Number of children: Not on file Years of education: Not on file Highest education level: Not on file Occupational History Not on file Tobacco Use Smoking status: Former Smoker Years: 20.00 Types: Cigarettes Quit date: 10/06/1995 Years since quittin.8 Smokeless tobacco: Never Used Substance and Sexual Activity Alcohol use: No Drug use: No Sexual activity: Not on file Other Topics Concern Not on file Social History Narrative Not on file Social Determinants of Health Financial Resource Strain: Difficulty of Paying Living Expenses: Not on file Food Insecurity: Worried About Running Out of Food in the Last Year: Not on file Ran Out of Food in the Last Year: Not on file Transportation Needs: Lack of Transportation (Medical): Not on file Lack of Transportation (Non-Medical): Not on file Physical Activity: Days of Exercise per Week: Not on file Minutes of Exercise per Session: Not on file Stress: Feeling of Stress : Not on file Social Connections: Frequency of Communication with Friends and Family: Not on file Frequency of Social Gatherings with Friends and Family: Not on file Attends Mosque Services: Not on file Active Member of Clubs or Organizations: Not on file Attends Club or Organization Meetings: Not on file Marital Status: Not on file Intimate Partner Violence: Fear of Current or Ex-Partner: Not on file Emotionally Abused: Not on file Physically Abused: Not on file Sexually Abused: Not on file Housing Stability: Unable to Pay for Housing in the Last Year: Not on file Number of Places Lived in the Last Year: Not on file Unstable Housing in the Last Year: Not on file Family History: Family History Problem Relation Age of Onset Diabetes Mother Cancer Father Allergies: Moxifloxacin, Peg 3350-electrolytes, Tapentadol, Avelox [moxifloxacin hydrochloride], and Cephalexin Review of Systems: Unable to perform ROS, trach to vent Physical Examination : Patient Vitals for the past 8 hrs: BP Temp Temp src Pulse Resp SpO2 Weight 08/05/21 0800 (!) 157/69 97.7 F (36.5 C) Oral 75 15 100 % 08/05/21 0736 75 15 100 % 08/05/21 0700 74 (!) 0 100 % 08/05/21 0630 74 (!) 0 100 % 08/05/21 0600 98 F (36.7 C) Oral 73 15 100 % 140 lb 10.5 oz (63.8 kg) 08/05/21 0530 74 15 100 % 08/05/21 0500 74 15 100 % 08/05/21 0430 74 15 100 % 08/05/21 0412 74 15 100 % 08/05/21 0400 97.8 F (36.6 C) Oral 75 15 100 % 08/05/21 0330 75 12 100 % 08/05/21 0312 15 08/05/21 0300 81 27 100 % 08/05/21 0230 78 15 100 % 08/05/21 0200 98 F (36.7 C) Oral 79 15 100 % General Appearance: Sedated, trach to vent Head: Normocephalic, no trauma ENT: Tracheostomy to vent Neck:Supple, without lymphadenopathy. cervical collar in place Pulmonary/Chest: Clear to auscultation, without wheezes, rales, or rhonchi. Cardiovascular: Regular rate and rhythm without murmurs, rubs, or gallops. Abdomen: Soft, non tender. Bowel sounds normal. All four Extremities: No cyanosis, clubbing, edema, or effusions. Neurologic: She does not respond to me but RN does tell me that she followed simple commands earlier today Skin: Warm and dry with good turgor. Medical Decision Making -Laboratory: I have independently reviewed/ordered the following labs: CBC with Differential: Recent Labs 08/04/21 0440 08/05/21437 WBC 10.5 9.5 HGB 8.0* 7.7* HCT 23.7* 24.2* PLT 429 458* LYMPHOPCT 17* 19* MONOPCT 7 6 BMP: Recent Labs 08/04/21 0440 08/05/21 043 NA 141 143 K 3.5* 3.5* CL 108* 109* CO2 22 23 BUN 17 14 CREATININE 0.57 0.53 MG 1.9 1.8 Hepatic Function Panel: No results for input(s): PROT, LABALBU, BILIDIR, IBILI, BILITOT, ALKPHOS, ALT, AST in the last 72 hours. No results for input(s): RPR in the last 72 hours. No results for input(s): HIV in the last 72 hours. No results for input(s): BC in the last 72 hours. Lab Results Component Value Date RBC 2.47 08/05/2021 WBC 9.5 08/05/2021 TURBIDITY Clear 07/18/2021 Lab Results Component Value Date CREATININE 0.53 08/05/2021 GLUCOSE 121 08/05/2021 GLUCOSE 229 06/04/2011 Medical Decision Making-Imaging: No new imaging Medical Decision Ycejof-Elrmzzeo-Godcf: SARS-CoV-2, Rapid COVID-19, Rapid Collected: 07/13/21 7059 Result status: Final Resulting lab: [facility] Reference range: Not Detected Value: DETECTED Abnormal Comment: Rapid NAAT: The specimen is POSITIVE for SARS-Cov-2, the novel coronavirus associated with COVID-19. This test has been authorized by the FDA under an Emergency Use Authorization (EUA) for use by authorized laboratories. The ID NOW COVID-19 assay is designed to detect the virus that causes COVID-19 in patients with signs and symptoms of infection who are suspected of COVID-19. An individual without symptoms of COVID-19 and who is not shedding SARS-CoV-2 virus would expect to have a negative (not detected) result in this assay. Fact sheet for Healthcare Providers: https://www.fda.gov/media/090643/downl oad Fact sheet for Patients: https://www.fda.gov/media/999332/downl oad Methodology: Isothermal Nucleic Acid Amplification Culture, Respiratory Order: [id number] Status: Final result Visible to patient: No (not released) Next appt: Today at 02:30 PM in Radiology (STV MRI RM 1 (1.5T)) Specimen Information: Sputum Aspirated 0 Result Notes Component 07/24/21 8714 Specimen Description .ASPIRATED SPUTUM Direct Exam < 10 EPITHELIAL CELLS/LPF Direct Exam >25 NEUTROPHILS/LPF Direct Exam MANY GRAM NEGATIVE RODS Abnormal Culture KLEBSIELLA AEROGENES HEAVY GROWTH Abnormal Culture NO NORMAL ROB Resulting Agency [facility] Susceptibility Klebsiella aerogenes (1) Antibiotic Interpretation Microscan Method Status aztreonam Sensitive <=1 BACTERIAL SUSCEPTIBILITY PANEL BECKY Final ceFAZolin Resistant BACTERIAL SUSCEPTIBILITY PANEL BECKY Final cefTRIAXone Sensitive <=1 BACTERIAL SUSCEPTIBILITY PANEL BECKY Final ciprofloxacin Sensitive <=0.25 BACTERIAL SUSCEPTIBILITY PANEL BECKY Final gentamicin Sensitive <=1 BACTERIAL SUSCEPTIBILITY PANEL BECKY Final tobramycin Sensitive <=1 BACTERIAL SUSCEPTIBILITY PANEL BECKY Final trimethoprim-sulfamethoxazole Sensitive <=20 BACTERIAL SUSCEPTIBILITY PANEL BECKY Final piperacillin-tazobactam Sensitive 16 BACTERIAL SUSCEPTIBILITY PANEL BECKY Final Thank you for allowing us to participate in the care of this patient. Please call with questions. REBEKA RAMOS CNP Images from the original note were not included. [facility] -Progress Note Today's Date and Time: 08/04/2021, 12:47 PM Impression : Covid 19 Covid test: 07-13-21: Positive Prior MSSA septicemia. Bacteremia persistent from 06-28-21 through 07-04-21 CIDP chronic IVIG therapy - immunosuppressed Ulcer on the left foot Allergy to keflex and avelox - tolerates PNC Prior Erosive changes at craniocervical junction by CT cervical spine 06-29-21 S/P cervical spine surgery on 07-06-21 for relief of pressure from an epidural plegmon, causing compression of cervical medullary junction. Phlegmon found, no abscess. Cultures no growth. Bone described as soft raising concern for osteomyelitis. Hx of Hypothyroidism Diabetes mellitus type 2 Essential hypertension Acute respiratory failure 07/24/21 Recommendations: Covid treatment: Bebtelovimab infusion received 07-15-21 Decadron: Not indicated Remdesivir not indicated Actemra: not indicated Antimicrobial treatment: Continue nafcillin. Tentative Stop date 08-15-21 (6 weeks Rx) Concern for nafcillin induced hypokalemia-Improving KCl replacement for hypokalemia Nausea and vomiting with Cefazolin Sputum culture ordered 07/24/21-Klebsiella heavy growth Levaquin IV 750 mg daily x 7 days initiated 07/25/21. Stop date 08-01-21 Medical Decision Making/Summary/Discussion:08/04/2021 Patient intubated 07/24/21 for acute respiratory failure. MRI Brain and Cervical spine 07/26/21: Findings suggestive of osteomyelitis at the skull base including clivus, occipital condyles and C1 and C2 with associated pathologic fracture of C2. There is a 4.1 cm abscess collection within the posterior paraspinal soft tissues at the level of the skull base. Improved compression of cervical medullary junction from prior MRI Trach placed 07/30/21 per ENT Infection Control Recommendations [place] Precautions Isolate for Covid until 07-23-21 Antimicrobial Stewardship Recommendations Simplification of therapy Targeted therapy Coordination of Outpatient Care: Estimated Length of IV antimicrobials: 08-15-21 Patient will need Midline Catheter Insertion: no Patient will need PICC line Insertion:no Patient will need: Home IV , Infusion Center, SNF, LTAC: TBD Patient will need outpatient wound care:No Chief complaint/reason for consultation: Covid 19 MSSA septicemia Osteomyelitis cervical spine History of Present Illness: Meg Georges is a 56 y.o.-year-old female who was initially admitted on 07/14/2021. Patient seen at the request of . INITIAL HISTORY: Patient known to our service because of prior admission on 06-28-21 when she presented with altered mentation and was found to have a MSSA septicemia (06-28-21). She was also found to have erosive changes at the craniocervical junction which may be related to arthritis or osteomyelitis by CT cervical spine of 06-29-21. 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 Patient received treatment with Nafcillin. She also underwent cervical spine surgery on 07-06-21 for relief of pressure from an epidural plegmon/abscess, causing compression of cervical medullary junction. Soft bone and phlegmon were found but no definite abscess. Cultures of tissue yielded no growth. Patient was released to receive treatment with Nafcillin through 08-20-21. Patient was transferred back to [facility] on 07-14-21 because of a positive Covid test obtained on 07-13-21 Speech therapy consulted for swallow evaluation. She had aspiration of pudding on 07-19-21 CXR 07-20-21: No acute cardiopulmonary findings Speech therapy suggested NPO with tube feeds Impression CT chest 07/24/21 Consolidation in the lower lobes bilaterally that is worse on the left compared to the right consistent with pneumonia. No acute or chronic pulmonary Impression CT head 07/24/21 No acute intracranial abnormality. Chronic sinusitis most pronounced in the ethmoid air cells and left maxillary sinus. CURRENT EVALUATION : 08/04/2021 Patient was seen and evaluated at bedside She remains intubated, does not follow commands Elevated temperatures Labs, X rays reviewed: 08/04/2021 BUN: 15 Cr:0.60 K: 3.7-->3.3-->3.2-->3.3-->3.6 WBC: 14.2-->14.0-->14.0-->12.3-->11.9 Hb:9.3-->9.5-->9.1-->8.0-->8.3 Plat: 491-->502-->490-->398-->429 CRP: 183.3 SARS Co V2: positive 07-13-21 Cultures: Urine: Blood: 06-28-21: MSSA 06-30-21: MSSA 07-01-21: MSSA 07-02-21: MSSA 07-03-21: MSSA 07-04-21: MSSA 07-07-21: No growth 07-08-21: No growth 07-13-21: No growth 07/14/21: No growth 07/17/21: No growth 07-22-21: No growth X 2 Sputum : 07/24/21: Klebsiella Aerogenes Wound: Cervical tissue neck: 07-06-21: No growth 07-26-21 CT Chest 07/24/21 07/15/21 CXR 07/24/21 07-13-21: Impression MRI Brain and cervical spine 07/26/21 Cervical spine MRI: 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 Pathologic fracture of dense process of C2 is associated with its retroflexion and mild narrowing at the craniocervical junction. Mild degenerative findings of cervical spine as described. Brain MRI: There is no acute infarction, intracranial hemorrhage, or intracranial mass lesion. Mild chronic microangiopathic ischemic disease. Mild generalized volume loss. Severe mucosal thickening of frontal ethmoidal maxillary and sphenoid sinuses. Moderate mucosal thickening of mastoid air cells. Impression CT chest/abd/pelvis 07/15/21 Subsegmental atelectasis and consolidation left lower lobe which may represent pneumonia with associated small left pleural effusion which is more apparent. Recommend follow-up until resolution. Mild subsegmental infiltrate or atelectasis right lower lobe. Hazy ground-glass opacities along the right lower lobe and lingula which could represent early infiltrates from multisegmental bronchopneumonia and is more prominent. Small pericardial effusion which is more apparent Borderline enlarged mediastinal lymph nodes which are more prominent and are probably reactive in etiology. Recommend follow-up. I have personally reviewed the past medical history, past surgical history, medications, social history, and family history, and I have updated the database accordingly. 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 LEFT C2 RHIZOTOMY, EXPLORATION OF EPIDURAL PHLEGMON performed by Alisia Crump DO at [facility] OR CHOLECYSTECTOMY EYE SURGERY [address] shunt for open angle glaucoma. MRI compatible- device is all silicone LAMINECTOMY 07/06/2021 Posterior C1, LEFT C2 RHIZOTOMY, EXPLORATION OF EPIDURAL PHLEGMON PICC INSERTION VASCULAR ACCESS TEAM 07/10/2021 SHOULDER SURGERY right TRACHEOSTOMY 07/30/2021 TRACHEOSTOMY N/A 07/30/2021 TRACHEOTOMY performed by Erica Santiago MD at [facility] OR UPPER GASTROINTESTINAL ENDOSCOPY N/A 07/02/2021 EGD ESOPHAGOGASTRODUODENOSCOPY performed by Hari Wagner MD at [facility] Endoscopy Medications: insulin glargine 20 Units SubCUTAneous Nightly insulin lispro 0-12 Units SubCUTAneous Q6H famotidine 20 mg Per NG tube BID valproic acid 250 mg Per NG tube BID oxyCODONE 10 mg Oral Q6H carvedilol 25 mg Oral BID WC latanoprost 1 drop Both Eyes Nightly [Held by provider] lactobacillus 1 capsule Oral Daily with breakfast [Held by provider] gabapentin 200 mg Oral TID nafcillin 2,000 mg IntraVENous Q6H [Held by provider] aspirin 325 mg Oral Daily [Held by provider] calcium carbonate-vitamin D3 2 tablet Oral Daily [Held by provider] levothyroxine 100 mcg Oral Daily enoxaparin 40 mg SubCUTAneous Daily Social History: Social History Socioeconomic History Marital status: Spouse name: Not on file Number of children: Not on file Years of education: Not on file Highest education level: Not on file Occupational History Not on file Tobacco Use Smoking status: Former Smoker Years: 20.00 Types: Cigarettes Quit date: 10/06/1995 Years since quittin.8 Smokeless tobacco: Never Used Substance and Sexual Activity Alcohol use: No Drug use: No Sexual activity: Not on file Other Topics Concern Not on file Social History Narrative Not on file Social Determinants of Health Financial Resource Strain: Difficulty of Paying Living Expenses: Not on file Food Insecurity: Worried About Running Out of Food in the Last Year: Not on file Ran Out of Food in the Last Year: Not on file Transportation Needs: Lack of Transportation (Medical): Not on file Lack of Transportation (Non-Medical): Not on file Physical Activity: Days of Exercise per Week: Not on file Minutes of Exercise per Session: Not on file Stress: Feeling of Stress : Not on file Social Connections: Frequency of Communication with Friends and Family: Not on file Frequency of Social Gatherings with Friends and Family: Not on file Attends Mosque Services: Not on file Active Member of Clubs or Organizations: Not on file Attends Club or Organization Meetings: Not on file Marital Status: Not on file Intimate Partner Violence: Fear of Current or Ex-Partner: Not on file Emotionally Abused: Not on file Physically Abused: Not on file Sexually Abused: Not on file Housing Stability: Unable to Pay for Housing in the Last Year: Not on file Number of Places Lived in the Last Year: Not on file Unstable Housing in the Last Year: Not on file Family History: Family History Problem Relation Age of Onset Diabetes Mother Cancer Father Allergies: Moxifloxacin, Peg 3350-electrolytes, Tapentadol, Avelox [moxifloxacin hydrochloride], and Cephalexin Review of Systems: Unable to perform ROS, trach to vent Physical Examination : Patient Vitals for the past 8 hrs: Temp Temp src Pulse Resp SpO2 Weight 08/04/21 1111 82 17 100 % 08/04/21 0751 84 15 98 % 08/04/21 0738 81 18 100 % 08/04/21 0700 81 16 100 % 08/04/21 0630 82 (!) 0 100 % 08/04/21 0600 98 F (36.7 C) Oral 86 13 100 % 138 lb 3.7 oz (62.7 kg) 08/04/21 0530 90 19 99 % 08/04/21 0500 80 16 100 % General Appearance: Sedated, trach to vent Head: Normocephalic, no trauma ENT: Tracheostomy to vent Neck:Supple, without lymphadenopathy. cervical collar in place Pulmonary/Chest: Clear to auscultation, without wheezes, rales, or rhonchi. Cardiovascular: Regular rate and rhythm without murmurs, rubs, or gallops. Abdomen: Soft, non tender. Bowel sounds normal. All four Extremities: No cyanosis, clubbing, edema, or effusions. Neurologic: BC-sedated Skin: Warm and dry with good turgor. Medical Decision Making -Laboratory: I have independently reviewed/ordered the following labs: CBC with Differential: Recent Labs 08/03/21 0446 08/04/21 0440 WBC 11.9* 10.5 HGB 8.3* 8.0* HCT 24.8* 23.7* PLT 429 429 LYMPHOPCT 15* 17* MONOPCT 8 7 BMP: Recent Labs 08/02/21 0454 08/02/21 0454 08/03/21 0446 08/04/21 0440 NA 137 < > 139 141 K 3.3* < > 3.6* 3.5* CL 106 < > 107 108* CO2 22 < > 22 22 BUN 15 < > 15 17 CREATININE 0.67 < > 0.60 0.57 MG 1.7 -- -- 1.9 < > = values in this interval not displayed. Hepatic Function Panel: No results for input(s): PROT, LABALBU, BILIDIR, IBILI, BILITOT, ALKPHOS, ALT, AST in the last 72 hours. No results for input(s): RPR in the last 72 hours. No results for input(s): HIV in the last 72 hours. No results for input(s): BC in the last 72 hours. Lab Results Component Value Date RBC 2.48 08/04/2021 WBC 10.5 08/04/2021 TURBIDITY Clear 07/18/2021 Lab Results Component Value Date CREATININE 0.57 08/04/2021 GLUCOSE 195 08/04/2021 GLUCOSE 229 06/04/2011 Medical Decision Making-Imaging: No new imaging Medical Decision Fabgii-Cntwdgzf-Flbwx: SARS-CoV-2, Rapid COVID-19, Rapid Collected: 07/13/21 0916 Result status: Final Resulting lab: [facility] Reference range: Not Detected Value: DETECTED Abnormal Comment: Rapid NAAT: The specimen is POSITIVE for SARS-Cov-2, the novel coronavirus associated with COVID-19. This test has been authorized by the FDA under an Emergency Use Authorization (EUA) for use by authorized laboratories. The ID NOW COVID-19 assay is designed to detect the virus that causes COVID-19 in patients with signs and symptoms of infection who are suspected of COVID-19. An individual without symptoms of COVID-19 and who is not shedding SARS-CoV-2 virus would expect to have a negative (not detected) result in this assay. Fact sheet for Healthcare Providers: https://www.fda.gov/media/030410/downl oad Fact sheet for Patients: https://www.fda.gov/media/491691/downl oad Methodology: Isothermal Nucleic Acid Amplification Culture, Respiratory Order: [id number] Status: Final result Visible to patient: No (not released) Next appt: Today at 02:30 PM in Radiology (STV MRI RM 1 (1.5T)) Specimen Information: Sputum Aspirated 0 Result Notes Component 07/24/21 2417 Specimen Description .ASPIRATED SPUTUM Direct Exam < 10 EPITHELIAL CELLS/LPF Direct Exam >25 NEUTROPHILS/LPF Direct Exam MANY GRAM NEGATIVE RODS Abnormal Culture KLEBSIELLA AEROGENES HEAVY GROWTH Abnormal Culture NO NORMAL ROB [facility] Susceptibility Klebsiella aerogenes (1) Antibiotic Interpretation Microscan Method Status aztreonam Sensitive <=1 BACTERIAL SUSCEPTIBILITY PANEL BECKY Final ceFAZolin Resistant BACTERIAL SUSCEPTIBILITY PANEL BECKY Final cefTRIAXone Sensitive <=1 BACTERIAL SUSCEPTIBILITY PANEL BECKY Final ciprofloxacin Sensitive <=0.25 BACTERIAL SUSCEPTIBILITY PANEL BECKY Final gentamicin Sensitive <=1 BACTERIAL SUSCEPTIBILITY PANEL BECKY Final tobramycin Sensitive <=1 BACTERIAL SUSCEPTIBILITY PANEL BECKY Final trimethoprim-sulfamethoxazole Sensitive <=20 BACTERIAL SUSCEPTIBILITY PANEL BECKY Final piperacillin-tazobactam Sensitive 16 BACTERIAL SUSCEPTIBILITY PANEL BECKY Final Thank you for allowing us to participate in the care of this patient. Please call with questions. REBEKA RAMOS CNP Images from the original note were not included. Palliative Care Progress Note NAME: Meg Georges AGE: 56 y.o. GENDER: female : 1965 TODAY'S DATE: 08/04/2021 Reason for Consult: goals of care, family support Plan Palliative Interaction: I spoke with patient nurse Rosalie and received updates on patient. She was given Ativan earlier to help her relax. She remains on ventilator with Precedex for sedation and IV Nafcillan continues. I reached out to Hina and provided her with the above information and some emotional support. Awaiting to hear updates on surgery from Neurosurgery. Emotional support provided and palliative care will continue to follow. Education/support to family Discharge planning/helping to coordinate care Communications with primary service Pharmacologic pain management Providing support for coping/adaptation/distress of family Discussing meaning/purpose Caregiver support/education Continue with current plan of care Code status clarified: Full Code Principle Problem/Diagnosis: COVID Additional Assessments: 1- Symptom management/ pain control Pain Assessment: Fentanyl Anxiety: Precedex and ativan Dyspnea: patient remains on ventilator Fatigue: generalized weakness and discomfort Other: 2- Goals of care evaluation The patient goals of care are improve or maintain function/quality of life Goals of care discussed with: [] Patient independently [] Patient and Family [x] Family or Healthcare DPOA independently [] Unable to discuss with patient, family/DPOA not present 3- Code Status Full Code 4- Other recommendations - We will continue to provide comfort and support to the patient and the family Please call with any palliative questions or concerns. Palliative Care Team is available via perfect serve or via phone. History of Present Illness The patient is a 56 y.o. Non- / non female who presents with COVID Referred to Palliative Care by [x] Physician [] Nursing [] Family Request [] Other: She was admitted to the ICU service for COVID [U07.1]. Her hospital course has been associated with COVID, respiratory distress, ventilator, tracheostomy, spinal abscess. The patient has a complicated medical history and has been hospitalized since 07/14/2021 4:12 PM. Patient remains on ventilator with FIO2 30 and Peep 5 with Precedex for sedation. She has tracheostomy with redness and dressing noted. Cervical collar in place. Patient continues on Nafcillin for spinal abscess. Neurosurgery following for possible surgery. Palliative care will continue to follow. OVERNIGHT EVENTS: Patient is a full code Patient continues on Nafcillin Patient on ventilator with Precedex for sedation VITALS BP 133/62 Pulse 82 Temp 98 F (36.7 C) (Oral) Resp 17 Ht 5' 5 (1.651 m) Wt 138 lb 3.7 oz (62.7 kg) LMP 12/02/2011 SpO2 100% BMI 23.00 kg/m Patient Vitals for the past 96 hrs (Last 3 readings): Weight 08/04/21 0600 138 lb 3.7 oz (62.7 kg) 08/03/21 0500 137 lb 9.1 oz (62.4 kg) 08/02/21 0500 136 lb 14.5 oz (62.1 kg) Lab Results Component Value Date WBC 10.5 08/04/2021 HGB 8.0 (L) 08/04/2021 HCT 23.7 (L) 08/04/2021 MCV 95.6 08/04/2021 PLT 429 08/04/2021 , Lab Results Component Value Date NA 141 08/04/2021 K 3.5 08/04/2021 CL 108 08/04/2021 CO2 22 08/04/2021 BUN 17 08/04/2021 CREATININE 0.57 08/04/2021 GLUCOSE 195 08/04/2021 GLUCOSE 229 06/04/2011 CALCIUM 8.1 08/04/2021 Lab Results Component Value Date MG 1.9 08/04/2021 , Lab Results Component Value Date CALCIUM 8.1 (L) 08/04/2021 PHOS 1.9 (L) 07/17/2021 Xray Result (most recent): XR CHEST PORTABLE 07/26/2021 Narrative EXAMINATION: ONE XRAY VIEW OF THE CHEST 07/26/2021 11:57 am COMPARISON: July 24, 2021. HISTORY: ORDERING SYSTEM PROVIDED HISTORY: reintubation TECHNOLOGIST PROVIDED HISTORY: reintubation FINDINGS: A portable supine frontal view chest radiograph was obtained. Slight interval worsening of left basilar airspace disease which may be due to atelectasis, aspiration, or pneumonia. Top normal heart size. No pneumothorax or significant pleural effusion. Impression The endotracheal tube ends appropriately above the yudith and below the clavicular heads. The nasogastric tube ends within the stomach. Worsening left basilar airspace disease as above. MRI Result (most recent): MRI BRAIN WO CONTRAST 07/26/2021 Narrative EXAMINATION: MRI OF THE CERVICAL SPINE WITHOUT AND WITH CONTRAST; MRI OF THE BRAIN WITHOUT CONTRAST 07/26/2021 3:23 pm: TECHNIQUE: Multiplanar multisequence MRI of the cervical spine was performed without and with the administration of intravenous contrast.; Multiplanar multisequence MRI of the brain was performed without the administration of intravenous contrast. COMPARISON: None. HISTORY: ORDERING SYSTEM PROVIDED HISTORY: Evaluate for possible worsening of epidural abscess TECHNOLOGIST PROVIDED HISTORY: Evaluate for possible worsening of epidural abscess What is the sedation requirement?->None Reason for Exam: Evaluate for possible worsening of epidural abscess FINDINGS: Cervical spine MRI: BONES/ALIGNMENT: There is normal alignment of the spine. Extensive amount of edema marrow edema and enhancement involving the C2 vertebral body, clivus, occipital condyles, C1 and C2 vertebral body is concerning for osteomyelitis. There is associated pathologic fracture of C2 vertebral body and extensive amount of paraspinal inflammation including a large rim enhancing collection within the posterior paraspinal subcutaneous tissues posterior to the C1 and C2, measuring approximately 4.1 x 3.4 x 3.9 cm mostly consistent with an abscess collection. There is also extensive amount of edema within the prevertebral soft tissues extending from the skull base. Pathologic fracture of C2 is associated with retroflexion of dense process of C2 with mild narrowing at the craniocervical junction. SPINAL CORD: No abnormal cord signal is seen. SOFT TISSUES: No abnormal enhancement of the cervical spine. No paraspinal mass identified. C2-C3: There is no significant disc protrusion, spinal canal stenosis or neural foraminal narrowing. C3-C4: Mild bilateral facet arthropathy resulting in mild bilateral neural foraminal narrowing C4-C5: Disc bulging with 2 mm central disc protrusion. Moderate bilateral facet arthropathy. Mild right neural foraminal narrowing. C5-C6: Grade 1 anterolisthesis with disc bulging. Moderate bilateral set arthropathy. Mild right neural foraminal narrowing. C6-C7: Severe loss of disc height and signal endplate degenerative marrow change. Posterior uncovertebral hypertrophy mild bilateral facet arthropathy. Moderate left neural foraminal narrowing. C7-T1: There is no significant disc protrusion, spinal canal stenosis or neural foraminal narrowing. Brain MRI: There is no acute infarction, intracranial hemorrhage, or intracranial mass lesion. No mass effect, midline shift, or extra-axial collection is noted. There are mild nonspecific foci of periventricular and subcortical cerebral white matter T2/FLAIR hyperintensity, most likely representing chronic microangiopathic disease in this age group. The brain parenchyma is otherwise normal. The pituitary gland is normal in appearance. The cerebellar tonsils are in normal position. The ventricles, sulci, and cisterns are prominent suggestive of generalized volume loss. The intracranial flow voids are preserved. The globes and orbits are within normal limits. Severe mucosal thickening of frontal ethmoidal maxillary and sphenoid sinuses. Moderate mucosal thickening of mastoid air cells. The visualized extracranial structures including paranasal sinuses and mastoid air cells are unremarkable. The abscess collection within the posterior paraspinal soft tissue at C1-C2 demonstrate restricted diffusion, as expected. Impression Cervical spine MRI: 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 Pathologic fracture of dense process of C2 is associated with its retroflexion and mild narrowing at the craniocervical junction. Mild degenerative findings of cervical spine as described. Brain MRI: There is no acute infarction, intracranial hemorrhage, or intracranial mass lesion. Mild chronic microangiopathic ischemic disease. Mild generalized volume loss. Severe mucosal thickening of frontal ethmoidal maxillary and sphenoid sinuses. Moderate mucosal thickening of mastoid air cells. 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 LEFT C2 RHIZOTOMY, EXPLORATION OF EPIDURAL PHLEGMON performed by Alisia Crump DO at [facility] OR CHOLECYSTECTOMY EYE SURGERY [address] 250 shunt for open angle glaucoma. MRI compatible- device is all silicone LAMINECTOMY 07/06/2021 Posterior C1, LEFT C2 RHIZOTOMY, EXPLORATION OF EPIDURAL PHLEGMON PICC INSERTION VASCULAR ACCESS TEAM 07/10/2021 SHOULDER SURGERY right TRACHEOSTOMY 07/30/2021 TRACHEOSTOMY N/A 07/30/2021 TRACHEOTOMY performed by Erica Santiago MD at [facility] OR UPPER GASTROINTESTINAL ENDOSCOPY N/A 07/02/2021 EGD ESOPHAGOGASTRODUODENOSCOPY performed by Hari Wagner MD at [facility] Endoscopy FAMILY HISTORY Family History Problem Relation Age of Onset Diabetes Mother Cancer Father SOCIAL HISTORY Social History Tobacco History Smoking Status Former Smoker Quit date 10/06/1995 Smoking Frequency For 20 years Smoking Tobacco Type Cigarettes Smokeless Tobacco Use Never Used Alcohol History Alcohol Use Status No Drug Use Drug Use Status No Sexual Activity Sexually Active Not Asked Assessment REVIEW OF SYSTEMS [x] UNABLE TO OBTAIN: Patient on ventilator with sedation Precedex does not follow commands or answer questions PHYSICAL ASSESSMENT: General: [] Oriented x3 [] well appearing [] Intubated [x] ill appearing [x] Other:Ventilator to tracheostomy with sedation Mental Status: [] normal mental status exam [x] drowsy [] Confused [x] Other: sedation Cardiovascular: [x] Regular rate/rhythm [] Arrhythmia [] Other: Chest: [] Effort normal [] lungs clear [] respiratory distress [] Tachypnea [x] Other:Ventilator to tracheostomy Abdomen: [x] Soft/non-tender [] Normal appearance [] Distended [] Ascites [] Other: Neurological: [] Normal Speech [] Normal Sensation [] Deficits present: Patient on sedation Extremity: [] normal skin color/temp [] clubbing/cyanosis [] No edema [x] Other: wounds on legs, tracheostomy reddened Palliative Performance Scale: ___60% Ambulation reduced; Significant disease; Can't do hobbies/housework; intake normal or reduced; occasional assist; LOC full/confusion ___50% Mainly sit/lie; Extensive disease; Can't do any work; Considerable assist; intake normal or reduced; LOC full/confusion _x__40% Mainly in bed; Extensive disease; Mainly assist; intake normal or reduced; LOC full/confusion ___30% Bed Bound; Extensive disease; Total care; intake reduced; LOCfull/confusion ___20% Bed Bound; Extensive disease; Total care; intake minimal; Drowsy/coma ___10% Bed Bound; Extensive disease; Total care; Mouth care only; Drowsy/coma ___0 Palliative Care will continue to follow Ms. Georges's care as needed. The note has been dictated by maco, typing errors may be a possibility Thank you for allowing Palliative Care to participate in the care of Ms. Georges . [facility] Palliative Care Number [phone] [facility] Palliative Care Number [phone] [facility] Palliative Care Number [phone] Please call with any palliative questions or concerns. Palliative Care Team is available via perfect serve or via phone. ENT/OTOLARYNGOLOGY PROGRESS NOTE REASON FOR CARE: Tracheostomy dependence HISTORY OF PRESENT ILLNESS: Meg Georges is a 56 y.o. who is being seen for follow-up of tracheostomy. Placed 07/30/21. No acute issues. Medications: Current Facility-Administered Medications Medication Dose Route Frequency Provider Last Rate Last Admin calcium gluconate 2000 mg in sodium chloride 100 mL 2,000 mg IntraVENous Once Courtney Seaman MD insulin glargine (LANTUS) injection vial 20 Units 20 Units SubCUTAneous Nightly Courtney Seaman MD magnesium hydroxide (MILK OF MAGNESIA) 400 MG/5ML suspension 30 mL 30 mL Per NG tube Daily PRN Courtney Seaman MD Loperamide HCl (IMODIUM) 1 MG/7.5ML solution 2 mg 2 mg Oral 4x Daily PRN Courtney Seaman MD insulin lispro (HUMALOG) injection vial 0-12 Units 0-12 Units SubCUTAneous Q6H Courtney Seaman MD famotidine (PEPCID) tablet 20 mg 20 mg Per NG tube BID Adilson Coyle MD 20 mg at 08/03/212004 valproic acid (DEPAKENE) 250 MG/5ML oral solution 250 mg 250 mg Per NG tube BID Keri Hart MD 250 mg at 08/03/212104 dexmedetomidine (PRECEDEX) 400 mcg in sodium chloride 0.9 % 100 mL infusion 0.1-1.5 mcg/kg/hr IntraVENous Continuous Tete Melgar MD 12.1 mL/hr at 08/04/21 0643 0.8 mcg/kg/hr at 08/04/21 0643 oxyCODONE (ROXICODONE) immediate release tablet 10 mg 10 mg Oral Q6H Tami Vega MD 10 mg at 08/04/21 0228 bisacodyl (DULCOLAX) suppository 10 mg 10 mg Rectal Daily PRN Adilson Coyle MD 0.9 % sodium chloride infusion IntraVENous Continuous Adilson Coyle MD 10 mL/hr at 08/04/21 0643 Rate Verify at 08/04/21 0643 0.9 % sodium chloride infusion IntraVENous PRN Adilson Coyle MD LORazepam (ATIVAN) injection 2 mg 2 mg IntraVENous Q4H PRN Adilson Coyle MD 2 mg at 08/04/21 0431 carvedilol (COREG) tablet 25 mg 25 mg Oral BID WC Adilson Coyle MD 25 mg at 08/03/21 1700 potassium chloride (KLOR-CON M) extended release tablet 40 mEq 40 mEq Oral PRN Adilson Coyle MD Or potassium bicarb-citric acid (EFFER-K) effervescent tablet 40 mEq 40 mEq Oral PRN Adilson Coyle MD 40 mEq at 08/04/21 0625 Or potassium chloride 10 mEq/100 mL IVPB (Peripheral Line) 10 mEq IntraVENous PRN Adilson Coyle MD fentaNYL (SUBLIMAZE) injection 25 mcg 25 mcg IntraVENous Q1H PRN Adilson Coyle MD 25 mcg at 08/04/21 0625 latanoprost (XALATAN) 0.005 % ophthalmic solution 1 drop 1 drop Both Eyes Nightly Adilson Coyle MD 1 drop at 08/03/212104 [Held by provider] lactobacillus (CULTURELLE) capsule 1 capsule 1 capsule Oral Daily with breakfast hCris Lassiter MD 1 capsule at 07/24/21 0906 [Held by provider] gabapentin (NEURONTIN) capsule 200 mg 200 mg Oral TID Chris Lassiter MD 200 mg at 07/24/21 0906 nafcillin 2,000 mg in dextrose 5 % 100 mL IVPB (mini-bag) 2,000 mg IntraVENous Q6H Adilson Coyle MD Stopped at 08/04/21 0559 [Held by provider] aspirin tablet 325 mg 325 mg Oral Daily Tami Vega MD 325 mg at 07/24/21 0906 [Held by provider] calcium carbonate-vitamin D3 (CALTRATE) 600-400 MG-UNIT per tab 2 tablet 2 tablet Oral Daily Becki Chang MD 2 tablet at 07/23/21 1209 sodium chloride flush 0.9 % injection 5-40 mL 5-40 mL IntraVENous PRN Adilson Coyle MD 10 mL at 08/03/212005 ondansetron (ZOFRAN-ODT) disintegrating tablet 4 mg 4 mg Oral Q8H PRN Adilson Coyle MD 4 mg at 07/14/21 1834 Or ondansetron (ZOFRAN) injection 4 mg 4 mg IntraVENous Q6H PRN Adilson Coyle MD 4 mg at 07/18/21 0415 acetaminophen (TYLENOL) tablet 650 mg 650 mg Oral Q6H PRN Adilson Coyle MD Or acetaminophen (TYLENOL) suppository 650 mg 650 mg Rectal Q6H PRN Adilson Coyle MD dextromethorphan-guaiFENesin (ROBITUSSIN-DM) 10-100 MG/5ML liquid 5 mL 5 mL Oral Q4H PRN Adilson Coyle MD 5 mL at 07/14/21 1828 dextrose bolus 10% 125 mL 125 mL IntraVENous PRN Adilson Coyle MD Or dextrose bolus 10% 250 mL 250 mL IntraVENous PRN Adilson Coyle MD glucagon (rDNA) injection 1 mg 1 mg IntraMUSCular PRN Adilson Coyel MD dextrose 5 % solution 100 mL/hr IntraVENous PRN Adilson Coyle MD magnesium sulfate 1000 mg in dextrose 5% 100 mL IVPB 1,000 mg IntraVENous PRN Adilson Coyle MD Stopped at 07/15/21 0445 [Held by provider] levothyroxine (SYNTHROID) tablet 100 mcg 100 mcg Oral Daily Clark Iglesias MD 100 mcg at 07/24/21 0906 enoxaparin (LOVENOX) injection 40 mg 40 mg SubCUTAneous Daily Clark Iglesias MD 40 mg at 08/03/21 0823 Examination: GENERAL: well developed and well nourished and in no acute distress, C collar in place. HEAD: normocephalic and atraumatic EYES: no eyelid swelling, no conjunctival injection or exudate, pupils equal round and reactive to light EXTERNAL EARS: normal EAR EXAM: deferred NOSE: nares patent, normal mucosa MOUTH/THROAT: mucous membranes moist, no focal lesions, no tonsillar enlargement or exudate NECK: 7.[address], sutures in 4 quadrants. RESPIRATORY: on Vent, stable NEUROLOGICAL: cranial nerves II-XII are grossly intact RELEVANT LABS/STUDIES: PROCEDURE: Tracheostomy tube change prior to establishment of mature stoma DATE AND TIME OF PROCEDURE: 08/04/2021 9:19 AM PATIENT NAME: Meg Georges SURGEON: ISRRAEL MCGRATH MD PREOPERATIVE DIAGNOSIS: Tracheostomy tube dependence POSTOPERATIVE DIAGNOSIS: same INDICATION: Tracheostomy tube dependence TIME OUT: A time out was conducted immediately before starting the procedure that confirmed a final verification of the correct patient, correct procedure, correct patient position, correct site and availability of special equipment. SITE: Anterior neck ANESTHESIA: None COMPLICATIONS: None EBL: None DURATION: 5 min TOLERANCE: Good PROCEDURAL IMMOBILIZATION: RN / caregiver hold DESCRIPTION OF PROCEDURE: The patient was laid supine in the bed. The C collar was removed and she was held in midline and stabilized by the bedside RN. The patient was preoxygenated by the RT staff. Tracheostomy suctioning was performed. A new 7.0 proximal XLT cuffed Shiley tracheostomy tube was opened and the cuff tested if a cuffed tracheostomy and the tube was lubricated. The tracheostomy ties were undone and the sutures were removed. The existing tracheostomy tube was removed. The stoma appeared healthy. There was moderate mucous that was suctioned away. On the left inferior neck where the suture had held the phlange in place, there was mild inflammation without roxanna skin breakdown. The new tracheostomy tube was then placed into the stoma, the obturator was removed, and the ventilator circuit reattached. The tracheostomy ties were then fastened at an appropriate tightness. The patient tolerated the procedure well without immediate complication. FINDINGS: Well healed, patent stoma. Mild skin inflammation at left inferior neck. IMPRESSION AND RECOMMENDATIONS: Doing well s/p trach change Plan: 1. Continue routine trach care. 2. Mepilex over left neck skin until inflammation resolved. 3. ENT will sign off. Please call with questions or concerns. 4. Outpatient follow up with adult ENT provider in [facility]. Follow-up: Your follow up appointment can be arranged with an adult ENT provider. You can contact EITHER of the practices listed here to schedule a follow up. Please contact the office at the number listed below to coordinate follow up. OPTION 1: Ear, Nose, and Throat surgeons at [facility]: Dr. Chilo Mccoy and Dr. Angel Krueger [address] [facility] [address] OPTION 2: [facility] ENT [address] [place] [address] Appointment scheduling: ISRRAEL MCGRATH MD Pediatric Otolaryngology-Head and Neck Surgery [facility] Otolaryngology group Office ph# [phone] Also available in [place] Pt trach changed without incident, #7.0 XLT, per Dr. Mcgrath. Trach site red, Mepilex to be placed. Pt tolerated well. Images from the original note were not included. Critical Care Team - Daily Progress Note Date and time: 08/04/2021 8:43 AM Patient's name: Meg Georges Patient's account/billing number: [id number] Patient's Date of : 1965 Age: 56 y.o. Date of Admission: 07/14/2021 4:12 PM Length of stay during current admission: 21 Primary Care Physician: Neri Santa Sr, DO ICU Attending Physician: Dr. Willoughby Code Status: Full Code Reason for ICU admission: No chief complaint on file. SUBJECTIVE: OVERNIGHT EVENTS: Patient hemodynamically stable; afebrile On precedex at 0.8 Plan for trach change on POD 5 (Friday08/04/21) - trach changed today; stoma looks good per ENT; start on mepilex for inflammation at area of sutures; ENG signed off ID - nafcillin 08/15/21 k 3.5 replaced; calcium 8.1 - replace Glucose accord 192; increased lantus to 20 U nightly and ss Wbc 11.9 > 10.5; hb 8; platelets 429 ? Continue nafcillin. Tentative Stop date 08-15-21 (6 weeks Rx) I/O Intake 2.14 L ; UO 1.35 L, urine unmeasured x 2; stool 500 cc Total out put 1.85L Coreg 25 bid, depakene, gabapentin held, nafcillin per ID, aspirin held, Synthroid held Neurosurgery - needs xray cervical/flexion extension and open mouth odontoid view when able [facility]. [facility]. B.I.D. Feeding Diet: Diet NPO ADULT TUBE FEEDING; Nasogastric; Peptide Based; Continuous; 50; No; 30; Q 4 hours Fluids: NS at 10 cc/hour Family: will update Analgesic: fentanyl 25 q1h and eva 10 q6h Sedation: precedex gtt Thrombo-prophylaxis: [x] Enoxaparin, [] Unfract. Heparin Subcutaneously, [] EPC Cuffs Mobility: trach Heads up: no Ulcer prophylaxis: [x] PPI Agent, [] [id number], [] Sucralfate, [] Other: Glycemic control: controlled; increased lantus to 20 U nightly Spontaneous breathing trial: trach change today Bowel regimen/urine output: dulcolax and imodium prn Indwelling catheter/lines: PICC 07/10; R fem cvc 07/24/21; art line 07/24/21 De-escalation: HISTORY OF PRESENT ILLNESS: Meg Georges is a 56 y.o. 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 Patient was to be discharged this morning however she became unresponsive and tachypneic. ICU team responded to rapid response. Patient was put on nonrebreather. Patient was found to have stridorous respiration and tachypnea was noted. Patient was not responsive to voice, touch, pain. Pupil responses intact bilaterally. Breath sounds decreased left side. Due to stridorous respirations and altered mental status, decision was made to intubate patient. Patient had C1 laminectomy, left C2 rhizotomy, exploration of epidural phlegmon on July 06, 2021. MRI of the cervical spine confirmed small epidural abscess at C1 and C2 level with progressive compression of the brainstem. Blood cultures had been positive for 6 days despite antibiotics, surgery was done to drain abscess. Cultures had no growth. On July 13, 2021 patient was sent to the ED in [facility] from outpatient infusion center where she had been getting 2 units of PRBC and potassium. During the infusion her blood pressure increased to 180s with a headache. Initial labs in the ED noted WBC 8, potassium 2.2, normal LFTs. Magnesium 1.5. Patient was found to be COVID-positive with superimposed lower left lobe pneumonia. Started on Zosyn 3.3 g. Transferred to our hospital on July 14, 2021. Patient received dexamethasone on July 14 and July 15. Patient was given that bebtelovimab infusion on July 15. Cefazolin 07/16-07/18. Nafcillin 1000mg 07/16, increased to 2000 mg on July 18. Cervical phlegmon culture no growth. May have concern for osteomyelitis in the bone. Blood cultures negative to date. Patient was set to be discharged this morning when she became unresponsive and rapid was called. CURRENT VENTILATION STATUS: [x] Ventilator [] BIPAP [] Nasal Cannula [] Room Air IF INTUBATED, ET TUBE MARKING AT LOWER LIP: [facility] SEDATION: Precedex gtt [] Propofol gtt [] Versed gtt [] Ativan gtt [] No Sedation DIARRHEA: [x] No [] Yes (C. Difficile status: [] positive [] negative [] pending) VASOPRESSORS: [x] No [] Yes If yes - [] Levophed [] Dopamine [] Vasopressin [] Dobutamine [] Phenylephrine [] Epinephrine CENTRAL LINES: [] No [x] Yes (Date of Insertion: 07/24/21 ) If yes - [] Right IJ [] Left IJ [x] Right Femoral [] Left Femoral [] Right Subclavian [] Left Subclavian MEADE'S CATHETER: [] No [x] Yes (Date of Insertion: present on admission ) UcritiRINE OUTPUT: [x] Good [] Low [] Anuric Review of Systems Unable to perform ROS: Intubated OBJECTIVE: VITAL SIGNS: BP 133/62 Pulse 84 Temp 98 F (36.7 C) (Oral) Resp 15 Ht 5' 5 (1.651 m) Wt 138 lb 3.7 oz (62.7 kg) LMP 12/02/2011 SpO2 98% BMI 23.00 kg/m Tmax over 24 hours: Temp (24hrs), Av.1 F (36.7 C), Min:97.9 F (36.6 C), Max:98.6 F (37 C) Patient Vitals for the past 8 hrs: Temp Temp src Pulse Resp SpO2 Weight 08/04/21 0751 84 15 98 % 08/04/21 0738 81 18 100 % 08/04/21 0700 81 16 100 % 08/04/21 0630 82 (!) 0 100 % 08/04/21 0600 98 F (36.7 C) Oral 86 13 100 % 138 lb 3.7 oz (62.7 kg) 08/04/21 0530 90 19 99 % 08/04/21 0500 80 16 100 % 08/04/21 0430 98 28 99 % 08/04/21 0400 98 F (36.7 C) Oral 82 17 100 % 08/04/21 0330 82 20 100 % 08/04/21 0313 82 20 100 % 08/04/21 0300 89 30 100 % 08/04/21 0258 26 08/04/21 0230 81 17 100 % 08/04/21 0200 97.9 F (36.6 C) Oral 82 15 100 % 08/04/21 0130 82 16 100 % 08/04/21 0100 84 16 100 % Intake/Output Summary (Last 24 hours) at 08/04/2021 0843 Last data filed at 08/04/2021 0644 Gross per 24 hour Intake 1926.73 ml Output 1800 ml Net 126.73 ml Date 08/04/21 0000 - 08/04/21 2359 Shift 6850-0142 2540-4852 8066-1689 24 Hour Total INTAKE I.V.(mL/kg) 376.1(6) 376.1(6) NG/GT(mL/kg) 528(8.4) 528(8.4) IV Piggyback(mL/kg) 299.5(4.8) 299.5(4.8) Shift Total(mL/kg) 1203.7(19.2) 1203.7(19.2) OUTPUT Urine(mL/kg/hr) 1050(2.1) 1050 Stool(mL/kg) 300(4.8) 300(4.8) Shift Total(mL/kg) 1350(21.5) 1350(21.5) Weight (kg) 62.7 62.7 62.7 62.7 Wt Readings from Last 3 Encounters: 08/04/21 138 lb 3.7 oz (62.7 kg) 07/13/21 140 lb (63.5 kg) 07/10/21 161 lb 11.2 oz (73.3 kg) Body mass index is 23 kg/m . PHYSICAL EXAM: General: No acute distress, trach, on sedation HEENT: Trach in place. Some purulent discharge, foul smelling, erythema. Normocephalic, atraumatic. Cardiovascular: Normal cardiac rate present, sinus rhythm on telemetry. Pulmonary: Mechanical breath sounds bilaterally Abdominal: Soft, nondistended, nontender. No palpable masses. Neuro: Opens eyes to touch. Skin: erythema around trach site MEDICATIONS: Scheduled Meds: calcium gluconate 2,000 mg IntraVENous Once insulin glargine 20 Units SubCUTAneous Nightly insulin lispro 0-18 Units SubCUTAneous Q6H famotidine 20 mg Per NG tube BID valproic acid 250 mg Per NG tube BID oxyCODONE 10 mg Oral Q6H carvedilol 25 mg Oral BID WC latanoprost 1 drop Both Eyes Nightly [Held by provider] lactobacillus 1 capsule Oral Daily with breakfast [Held by provider] gabapentin 200 mg Oral TID nafcillin 2,000 mg IntraVENous Q6H [Held by provider] aspirin 325 mg Oral Daily [Held by provider] calcium carbonate-vitamin D3 2 tablet Oral Daily [Held by provider] levothyroxine 100 mcg Oral Daily enoxaparin 40 mg SubCUTAneous Daily Continuous Infusions: dexmedetomidine 0.8 mcg/kg/hr (08/04/21 0643) sodium chloride 10 mL/hr at 08/04/21 0643 sodium chloride dextrose PRN Meds: magnesium hydroxide, 30 mL, Daily PRN Loperamide HCl, 2 mg, 4x Daily PRN bisacodyl, 10 mg, Daily PRN sodium chloride, , PRN LORazepam, 2 mg, Q4H PRN potassium chloride, 40 mEq, PRN Or potassium alternative oral replacement, 40 mEq, PRN Or potassium chloride, 10 mEq, PRN fentanNYL, 25 mcg, Q1H PRN sodium chloride flush, 5-40 mL, PRN ondansetron, 4 mg, Q8H PRN Or ondansetron, 4 mg, Q6H PRN acetaminophen, 650 mg, Q6H PRN Or acetaminophen, 650 mg, Q6H PRN dextromethorphan-guaiFENesin, 5 mL, Q4H PRN dextrose bolus, 125 mL, PRN Or dextrose bolus, 250 mL, PRN glucagon (rDNA), 1 mg, PRN dextrose, 100 mL/hr, PRN magnesium sulfate, 1,000 mg, PRN SUPPORT DEVICES: [x] Ventilator [] BIPAP [] Nasal Cannula [] Room Air VENT SETTINGS (Comprehensive) (if applicable): PRVC mode, FiO2 30%, PEEP 5, Respiratory Rate 15, Tidal Volume 450 Vent Information Ventilator ID: [id number] Vent Mode: PRVC Ventilator Discontinue: (S) Yes Additional Respiratory Assessments Heart Rate: 84 Resp: 15 SpO2: 98 % End Tidal CO2: 37 (%) Position: Semi-Simon's Humidification Source: [facility] Lab Results Component Value Date PHART 7.406 07/06/2021 [id number] 34.8 07/06/2021 PO2ART 279.0 07/06/2021 [id number] 21.4 07/06/2021 [id number] 99.4 07/06/2021 FIO2 30.0 08/03/2021 Lactic Acid: Lab Results Component Value Date LACTA 1.0 07/13/2021 LACTA 1.6 06/28/2021 DATA: Complete Blood Count: Recent Labs 08/02/21 0454 08/03/21 0446 08/04/21 0440 WBC 12.3* 11.9* 10.5 HGB 8.0* 8.3* 8.0* MCV 94.0 94.3 95.6 PLT 398 429 429 RBC 2.50* 2.63* 2.48* HCT 23.5* 24.8* 23.7* MCH 32.0 31.6 32.3 MCHC 34.0 33.5 33.8 RDW 18.5* 18.5* 18.4* MPV 8.4 8.8 8.7 PT/INR: Lab Results Component Value Date PROTIME 13.1 07/25/2021 INR 1.2 07/25/2021 PTT: Lab Results Component Value Date APTT 23.9 06/28/2021 Basal Metabolic Profile: Recent Labs 08/02/21 0454 08/03/21 0446 08/04/21 0440 NA 137 139 141 K 3.3* 3.6* 3.5* BUN 15 15 17 CREATININE 0.67 0.60 0.57 CL 106 107 108* CO2 Magnesium: Lab Results Component Value Date MG 1.9 08/04/2021 MG 1.7 08/02/2021 MG 1.7 08/01/2021 Phosphorus: Lab Results Component Value Date PHOS 1.9 07/17/2021 S. Calcium: Recent Labs 08/04/21439 CALCIUM 8.1* S. Ionized Calcium:No results for input(s): IONCA in the last 72 hours. Urinalysis: Lab Results Component Value Date NITRU NEGATIVE 07/18/2021 COLORU Yellow 07/18/2021 PHUR 8.5 07/18/2021 WBCUA 2 TO 5 07/18/2021 RBCUA 20 TO 50 07/18/2021 BACTERIA MANY 07/07/2021 SPECGRAV 1.010 07/18/2021 LEUKOCYTESUR NEGATIVE 07/18/2021 UROBILINOGEN Normal 07/18/2021 BILIRUBINUR NEGATIVE 07/18/2021 GLUCOSEU NEGATIVE 07/18/2021 KETUA SMALL 07/18/2021 CARDIAC ENZYMES: No results for input(s): CKMB, CKMBINDEX, TROPONINI in the last 72 hours. Invalid input(s): CKTOTAL;3 BNP: No results for input(s): BNP in the last 72 hours. LFTS No results for input(s): ALKPHOS, ALT, AST, BILITOT, BILIDIR, LABALBU in the last 72 hours. AMYLASE/LIPASE/AMMONIA No results for input(s): AMYLASE, LIPASE, AMMONIA in the last 72 hours. Last 3 Blood Glucose: Recent Labs 08/02/21 0454 08/03/21 0446 08/04/21 0440 GLUCOSE 247* 210* 195* HgBA1c: Lab Results Component Value Date LABA1C 9.4 06/28/2021 TSH: Lab Results Component Value Date TSH 2.06 07/24/2021 ANEMIA STUDIES No results for input(s): LABIRON, TIBC, FERRITIN, [id number], FOLATE, OCCULTBLD in the last 72 hours. Cultures during this admission: Blood cultures: [] None drawn [x] Negative [] Positive (Details: ) Urine Culture: [x] None drawn [] Negative [] Positive (Details: ) Sputum Culture: [] None drawn [] Negative [x] Positive (Details: 07/25/21 gram- Klebsiella, completed levaquin 7 days) Endotracheal aspirate: [x] None drawn [] Negative [] Positive (Details: ) Chest Xray (08/04/2021): ASSESSMENT: 1. Spinal epidural abscess 2. Pneumonia 3. Odontoid fracture 4. Anemia 5. Psoas hematoma 6. 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 H/o intractable headaches -Continue depakene per neurology Cardiovascular: Hemodynamically stability improving: weaned norepinephrine, off pressors MAP goal 65 Echo 07/02/21 - EF 55% HTN - continue coreg 25 bid Pulmonary: Maintain oxygen sats >92% On ventilator S/p tracheostomy on 07/30; trach change planned 08/04/21; Lower lobe bilateral pneumonia,Respiratory culture 07/24 - heavy growth klebsiella aerogens; s/p Levaquin ; stopped 07/31 GI/Nutrition Ulcer Prophylaxis: famotidine 20mg bid Diet: NPO Continue tube feeds Renal/Fluid/Electrolyte BMP unremarkable except K 3.5 - replaced UO 1.35 L /24hours ID Afebrile; white count 10.5 CAP treated; s/p levaquin Spinal epidural abscess - continue nafcillin per ID; tentative stop date 08/15/21 Hematology: Wbc 10.5; Hb 8, platelets 429 Endocrine: Uncontrolled DM type 2; started on lantus 20 U nightly; and switched to medium dose sliding scale; continue poct glucose checks q6h and hypoglycemia protocol MSK: -Psoas Hematoma-likely source of drop in hemoglobin, general surgery consulted, no acute intervention indicated. Hb stable 8 DVT Prophylaxis Lovenox Discharge Needs: pending clinical course CODE STATUS: Full Code Courtney Seaman MD Department of Internal Medicine/ Critical care [facility]) 08/04/2021, 8:43 AM Associated attestation - Aniket Padron MD - 08/04/2021 1:39 PM EDT Attending Physician Statement I have discussed the case of Meg Georges, including pertinent history and exam findings with the resident/fellow/medical student/SCREED OPERATOR/PA. I have seen and examined the patient and the coffey elements of the encounter have been performed by me. I agree with the assessment, plan and orders as documented by the resident/fellow/medical student/SCREED OPERATOR/PA With changes made to the note as needed. Pt was seen during rounds. Review of Systems: In addition to the pertinent positives and negatives as stated within HPI and the review of systems as documented in their notes, all other systems were reviewed when able to and are reported negative. Remains on the ventilator on 30% oxygen Tracheostomy tube has been changed Blood sugars have increased, insulin adjusted Supplement potassium for hypokalemia Anemia stable We will try to get a triple-lumen PICC so that we could discontinue femoral central line Not tolerating tube feeding. We will add Reglan if the patient's lipase is normal On Pepcid and Lovenox Total critical care time caring for this patient with life threatening, unstable organ failure, including direct patient contact, management of life support systems, review of data including imaging and labs, discussions with other team members and physicians at least 30 Min so far today, excluding procedures. Aniket Padron MD 08/04/2021 1:38 PM Comprehensive Nutrition Assessment Type and Reason for Visit: Reassess Nutrition Recommendations/Plan: 1. Modify TF to: Peptide-based at goal rate 50 mL/hr. Provides 1440 kcal, 90 g PRO. Monitor for tolerance. Malnutrition Assessment: Malnutrition Status: At risk for malnutrition (Comment) (07/30/21 6985) Context: Acute Illness Findings of the 6 clinical characteristics of malnutrition: Energy Intake: No significant decrease in energy intake (with use of TF) Weight Loss: No significant weight loss Body Fat Loss: No significant body fat loss Muscle Mass Loss: Unable to assess Fluid Accumulation: Mild Extremities,Generalized News Agent Strength: Not Performed Nutrition Assessment: Remains intubated via trach, attempting to wean ventilation. TF running at goal rate 45 mL/hr continuous at visit, pt tolerating. Pt no longer on propofol. Labs/meds reviewed. Wt fluctuation noted, will monitor. Nutrition Related Findings: Labs/meds reviewed. +1 generalized/BLE, +1 pitting BUR edema noted. LBM 6/16. Wound Type: Stage II,Diabetic Ulcer,Surgical Incision Current Nutrition Intake & Therapies: Average Meal Intake: NPO Average Supplements Intake: NPO Diet NPO ADULT TUBE FEEDING; Nasogastric; Peptide Based; Continuous; 50; No; 30; Q 4 hours Current Tube Feeding (TF) Orders: Feeding Route: Nasogastric Formula: Peptide Based Schedule: Continuous Feeding Regimen: Goal 50 mL/hr Additives/Modulars: None Water Flushes: per Current TF & Flush Orders Provides: Peptide Based Formula goal 45 mL/hr = 1296 kcal, 81 g PRO Goal TF & Flush Orders Provides: Peptide Based Formula goal 50 mL/hr = 1440 kcal, 90 g PRO Anthropometric Measures: Height: 5' 5 (165.1 cm) [place] Body Weight (IBW): 125 lbs (57 kg) Admission Body Weight: 133 lb 13.1 oz (60.7 kg) Current Body Weight: 137 lb 9.2 oz (62.4 kg) ([facility] 110.1 % IBW. Weight Source: Bed Scale Current BMI (kg/m2): 22.9 Weight Adjustment For: No Adjustment BMI Categories: Normal Weight (BMI 18.5-24.9) Estimated Daily Nutrient Needs: Energy Requirements Based On: Kcal/kg Weight Used for Energy Requirements: Admission Energy (kcal/day): 1500 kcal/day Weight Used for Protein Requirements: Current Protein (g/day): 90 g pro/day Method Used for Fluid Requirements: Other (Comment) Fluid (ml/day): per MD Nutrition Diagnosis: Inadequate oral intake related to impaired respiratory function as evidenced by NPO or clear liquid status due to medical condition (need for enteral nutrition support) Nutrition Interventions: Food and/or Nutrient Delivery: Modify Tube Feeding Nutrition Education/Counseling: No recommendation at this time Coordination of Nutrition Care: Continue to monitor while inpatient Goals: Previous Goal Met: Goal(s) Achieved Goals: Meet at least 75% of estimated needs,prior to discharge Nutrition Monitoring and Evaluation: Behavioral-Environmental Outcomes: None Identified Food/Nutrient Intake Outcomes: Enteral Nutrition Intake/Tolerance Physical Signs/Symptoms Outcomes: Biochemical Data,Nutrition Focused Physical Findings,Skin,Weight,Fluid Status or Edema Discharge Planning: Too soon to determine Ashwini Felix MS, RD, LD Contact: [phone] Otolaryngology staff note POD 4 s/p tracheostomy placement Patient was seen and examined this morning On vent, sedated, though weaning 7.0 Shiley XLT cuffed, in good position. Some dried blood around trach but there is no peristomal wound breakdown c-collar still in place Plan for trach change on POD 5 (Friday08/04/21) REBEKA Wills CNP Pediatric Otolaryngology-Head and Neck Surgery [facility] Otolaryngology group Office ph# [phone] Also available in [employer] Images from the original note were not included. [facility] -Progress Note Today's Date and Time: 08/03/2021, 8:40 AM Impression : Covid 19 Covid test: 07-13-21: Positive Prior MSSA septicemia. Bacteremia persistent from 06-28-21 through 07-04-21 CIDP chronic IVIG therapy - immunosuppressed Ulcer on the left foot Allergy to keflex and avelox - tolerates PNC Prior Erosive changes at craniocervical junction by CT cervical spine 06-29-21 S/P cervical spine surgery on 07-06-21 for relief of pressure from an epidural plegmon, causing compression of cervical medullary junction. Phlegmon found, no abscess. Cultures no growth. Bone described as soft raising concern for osteomyelitis. Hx of Hypothyroidism Diabetes mellitus type 2 Essential hypertension Acute respiratory failure 07/24/21 Recommendations: Covid treatment: Bebtelovimab infusion received 07-15-21 Decadron: Not indicated Remdesivir not indicated Actemra: not indicated Antimicrobial treatment: Continue nafcillin. Tentative Stop date 08-15-21 (6 weeks Rx) Concern for nafcillin induced hypokalemia-Improving KCl replacement for hypokalemia Nausea and vomiting with Cefazolin Sputum culture ordered 07/24/21-Klebsiella heavy growth Levaquin IV 750 mg daily x 7 days initiated 07/25/21. Stop date 08-01-21 Medical Decision Making/Summary/Discussion:08/03/2021 Patient intubated 07/24/21 for acute respiratory failure. MRI Brain and Cervical spine 07/26/21: Findings suggestive of osteomyelitis at the skull base including clivus, occipital condyles and C1 and C2 with associated pathologic fracture of C2. There is a 4.1 cm abscess collection within the posterior paraspinal soft tissues at the level of the skull base. Improved compression of cervical medullary junction from prior MRI Trach placed 07/30/21 per ENT Infection Control Recommendations [place] Precautions Isolate for Covid until 07-23-21 Antimicrobial Stewardship Recommendations Simplification of therapy Targeted therapy Coordination of Outpatient Care: Estimated Length of IV antimicrobials: 08-15-21 Patient will need Midline Catheter Insertion: no Patient will need PICC line Insertion:no Patient will need: Home IV , Infusion Center, SNF, LTAC: TBD Patient will need outpatient wound care:No Chief complaint/reason for consultation: Covid 19 MSSA septicemia Osteomyelitis cervical spine History of Present Illness: Meg Georges is a 56 y.o.-year-old female who was initially admitted on 07/14/2021. Patient seen at the request of . INITIAL HISTORY: Patient known to our service because of prior admission on 06-28-21 when she presented with altered mentation and was found to have a MSSA septicemia (06-28-21). She was also found to have erosive changes at the craniocervical junction which may be related to arthritis or osteomyelitis by CT cervical spine of 06-29-21. 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 Patient received treatment with Nafcillin. She also underwent cervical spine surgery on 07-06-21 for relief of pressure from an epidural plegmon/abscess, causing compression of cervical medullary junction. Soft bone and phlegmon were found but no definite abscess. Cultures of tissue yielded no growth. Patient was released to receive treatment with Nafcillin through 08-20-21. Patient was transferred back to [facility] on 07-14-21 because of a positive Covid test obtained on 07-13-21 Speech therapy consulted for swallow evaluation. She had aspiration of pudding on 07-19-21 CXR 07-20-21: No acute cardiopulmonary findings Speech therapy suggested NPO with tube feeds Impression CT chest 07/24/21 Consolidation in the lower lobes bilaterally that is worse on the left compared to the right consistent with pneumonia. No acute or chronic pulmonary Impression CT head 07/24/21 No acute intracranial abnormality. Chronic sinusitis most pronounced in the ethmoid air cells and left maxillary sinus. CURRENT EVALUATION : 08/03/2021 Patient evaluated in ICU Afebrile VS stable The patient is on the ventilator via trach. RR 15 FiO2: 30% SpO2: 99% She underwent a trach placement per ENT on 07/30/21. Weaning trial today She is moving but does not appear to be purposeful Cervical collar in place. MRI with 4.1 cm abscess collection within the posterior paraspinal soft tissues at the level of the base of the skull. Surgical intervention for atlantoaxial fixation versus possible occipital cervical fixation at the discretion of Neurosurgery. Very difficult clinical situation. Klebsiella on sputum from 07/24/21 Levaquin completed 08-01-21 Leukocytosis is improving Discussed with RN Labs, X rays reviewed: 08/03/2021 BUN: 15 Cr:0.60 K: 3.7-->3.3-->3.2-->3.3-->3.6 WBC: 14.2-->14.0-->14.0-->12.3-->11.9 Hb:9.3-->9.5-->9.1-->8.0-->8.3 Plat: 491-->502-->490-->398-->429 CRP: 183.3 SARS Co V2: positive 07-13-21 Cultures: Urine: Blood: 06-28-21: MSSA 06-30-21: MSSA 07-01-21: MSSA 07-02-21: MSSA 07-03-21: MSSA 07-04-21: MSSA 07-07-21: No growth 07-08-21: No growth 07-13-21: No growth 07/14/21: No growth 07/17/21: No growth 07-22-21: No growth X 2 Sputum : 07/24/21: Klebsiella Aerogenes Wound: Cervical tissue neck: 07-06-21: No growth Discussed with patient, RN, IM 07-26-21 CT Chest 07/24/21 07/15/21 CXR 07/24/21 07-13-21: Impression MRI Brain and cervical spine 07/26/21 Cervical spine MRI: 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 Pathologic fracture of dense process of C2 is associated with its retroflexion and mild narrowing at the craniocervical junction. Mild degenerative findings of cervical spine as described. Brain MRI: There is no acute infarction, intracranial hemorrhage, or intracranial mass lesion. Mild chronic microangiopathic ischemic disease. Mild generalized volume loss. Severe mucosal thickening of frontal ethmoidal maxillary and sphenoid sinuses. Moderate mucosal thickening of mastoid air cells. Impression CT chest/abd/pelvis 07/15/21 Subsegmental atelectasis and consolidation left lower lobe which may represent pneumonia with associated small left pleural effusion which is more apparent. Recommend follow-up until resolution. Mild subsegmental infiltrate or atelectasis right lower lobe. Hazy ground-glass opacities along the right lower lobe and lingula which could represent early infiltrates from multisegmental bronchopneumonia and is more prominent. Small pericardial effusion which is more apparent Borderline enlarged mediastinal lymph nodes which are more prominent and are probably reactive in etiology. Recommend follow-up. I have personally reviewed the past medical history, past surgical history, medications, social history, and family history, and I have updated the database accordingly. 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 LEFT C2 RHIZOTOMY, EXPLORATION OF EPIDURAL PHLEGMON performed by Alisia Crump DO at [facility] OR CHOLECYSTECTOMY EYE SURGERY [address] 250 shunt for open angle glaucoma. MRI compatible- device is all silicone LAMINECTOMY 07/06/2021 Posterior C1, LEFT C2 RHIZOTOMY, EXPLORATION OF EPIDURAL PHLEGMON PICC INSERTION VASCULAR ACCESS TEAM 07/10/2021 SHOULDER SURGERY right TRACHEOSTOMY 07/30/2021 TRACHEOSTOMY N/A 07/30/2021 TRACHEOTOMY performed by Erica Santiago MD at [facility] OR UPPER GASTROINTESTINAL ENDOSCOPY N/A 07/02/2021 EGD ESOPHAGOGASTRODUODENOSCOPY performed by Hari Wagner MD at [facility] Endoscopy Medications: insulin lispro 0-18 Units SubCUTAneous Q6H famotidine 20 mg Per NG tube BID valproic acid 250 mg Per NG tube BID oxyCODONE 10 mg Oral Q6H magnesium hydroxide 30 mL Per NG tube Daily carvedilol 25 mg Oral BID WC [Held by provider] insulin glargine 16 Units SubCUTAneous Nightly latanoprost 1 drop Both Eyes Nightly [Held by provider] lactobacillus 1 capsule Oral Daily with breakfast [Held by provider] gabapentin 200 mg Oral TID nafcillin 2,000 mg IntraVENous Q6H [Held by provider] aspirin 325 mg Oral Daily [Held by provider] calcium carbonate-vitamin D3 2 tablet Oral Daily [Held by provider] levothyroxine 100 mcg Oral Daily enoxaparin 40 mg SubCUTAneous Daily Social History: Social History Socioeconomic History Marital status: Spouse name: Not on file Number of children: Not on file Years of education: Not on file Highest education level: Not on file Occupational History Not on file Tobacco Use Smoking status: Former Smoker Years: 20.00 Types: Cigarettes Quit date: 10/06/1995 Years since quittin.8 Smokeless tobacco: Never Used Substance and Sexual Activity Alcohol use: No Drug use: No Sexual activity: Not on file Other Topics Concern Not on file Social History Narrative Not on file Social Determinants of Health Financial Resource Strain: Difficulty of Paying Living Expenses: Not on file Food Insecurity: Worried About Running Out of Food in the Last Year: Not on file Ran Out of Food in the Last Year: Not on file Transportation Needs: Lack of Transportation (Medical): Not on file Lack of Transportation (Non-Medical): Not on file Physical Activity: Days of Exercise per Week: Not on file Minutes of Exercise per Session: Not on file Stress: Feeling of Stress : Not on file Social Connections: Frequency of Communication with Friends and Family: Not on file Frequency of Social Gatherings with Friends and Family: Not on file Attends Mosque Services: Not on file Active Member of Clubs or Organizations: Not on file Attends Club or Organization Meetings: Not on file Marital Status: Not on file Intimate Partner Violence: Fear of Current or Ex-Partner: Not on file Emotionally Abused: Not on file Physically Abused: Not on file Sexually Abused: Not on file Housing Stability: Unable to Pay for Housing in the Last Year: Not on file Number of Places Lived in the Last Year: Not on file Unstable Housing in the Last Year: Not on file Family History: Family History Problem Relation Age of Onset Diabetes Mother Cancer Father Allergies: Moxifloxacin, Peg 3350-electrolytes, Tapentadol, Avelox [moxifloxacin hydrochloride], and Cephalexin Review of Systems: BC-Trach/vent Constitutional: No fevers or chills. No systemic complaints Head: No headaches Eyes: No double vision or blurry vision. No conjunctival inflammation. ENT: No sore throat or runny nose.. No hearing loss, tinnitus or vertigo. Difficulty swallowing. Cervical collar Cardiovascular: No chest pain or palpitations.No shortness of breath. No MARINELLI Lung: No shortness of breath or cough. No sputum production Abdomen: No nausea, vomiting, diarrhea, or abdominal pain.. No cramps. Genitourinary: No increased urinary frequency, or dysuria. No hematuria. No suprapubic or CVA pain Musculoskeletal: No muscle aches or pains. No joint effusions, swelling or deformities Hematologic: No bleeding or bruising. Neurologic: No headache, weakness, numbness, or tingling. Integument: No rash, no ulcers. Psychiatric: No depression. Endocrine: No polyuria, no polydipsia, no polyphagia. Physical Examination : Patient Vitals for the past 8 hrs: BP Temp Temp src Pulse Resp SpO2 Weight 08/03/21 0809 90 29 99 % 08/03/21 0808 90 29 100 % 08/03/21 0700 82 15 100 % 08/03/21 0645 83 15 100 % 08/03/21 0630 83 15 100 % 08/03/21 0623 83 15 100 % 08/03/21 0615 83 15 100 % 08/03/21 0600 99 F (37.2 C) Oral 84 15 100 % 08/03/21 0545 84 15 100 % 08/03/21 0530 85 15 100 % 08/03/21 0515 87 15 100 % 08/03/21 0500 88 15 100 % 137 lb 9.1 oz (62.4 kg) 08/03/21 0445 92 23 100 % 08/03/21 0430 89 19 100 % 08/03/21 0415 85 17 100 % 08/03/21 0400 133/62 98.7 F (37.1 C) Oral 84 15 100 % 08/03/21 0345 84 15 100 % 08/03/21 0330 84 15 100 % 08/03/21 0315 86 15 100 % 08/03/21 0300 86 15 100 % 08/03/21 0245 87 15 100 % 08/03/21 0230 88 15 100 % 08/03/21 0215 93 21 100 % 08/03/21 0200 99.1 F (37.3 C) Axillary 91 17 100 % 08/03/21 0145 87 15 100 % 08/03/21 0130 87 15 100 % 08/03/21 0115 87 15 100 % 08/03/21 0100 87 15 100 % 08/03/21 0045 88 15 100 % General Appearance: sedated on trach/vent Head: Normocephalic, no trauma Eyes: Pupils equal, round, reactive to light and accommodation; extraocular movements intact; sclera anicteric; conjunctivae pink. No embolic phenomena. ENT: Tracheostomy site Oropharynx clear, without erythema, exudate, or thrush. No tenderness of sinuses. Mouth/throat: mucosa pink and moist. No lesions. Dentition in good repair. Neck:Supple, without lymphadenopathy. Thyroid normal, No bruits.Cervical collar in place Pulmonary/Chest: Clear to auscultation, without wheezes, rales, or rhonchi. No dullness to percussion. Cardiovascular: Regular rate and rhythm without murmurs, rubs, or gallops. Abdomen: Soft, non tender. Bowel sounds normal. No organomegaly All four Extremities: No cyanosis, clubbing, edema, or effusions. Neurologic: BC-trach/vent Skin: Warm and dry with good turgor.No signs of peripheral arterial or venous insufficiency. No ulcerations. No open wounds. Medical Decision Making -Laboratory: I have independently reviewed/ordered the following labs: CBC with Differential: Recent Labs 08/02/2145308/03/21445 WBC 12.3* 11.9* HGB 8.0* 8.3* HCT 23.5* 24.8* PLT 398 429 LYMPHOPCT 16* 15* MONOPCT 8 8 BMP: Recent Labs 08/01/21 0452 08/01/21 0452 06/16/22 0454 06/17/22 0446 NA 138 < > 137 139 K 3.2* < > 3.3* 3.6* CL 105 < > 106 107 CO2 20 < > 22 22 BUN 15 < > 15 15 CREATININE 0.72 < > 0.67 0.60 MG 1.7 -- 1.7 -- < > = values in this interval not displayed. Hepatic Function Panel: No results for input(s): PROT, LABALBU, BILIDIR, IBILI, BILITOT, ALKPHOS, ALT, AST in the last 72 hours. No results for input(s): RPR in the last 72 hours. No results for input(s): HIV in the last 72 hours. No results for input(s): BC in the last 72 hours. Lab Results Component Value Date RBC 2.63 08/03/2021 WBC 11.9 08/03/2021 TURBIDITY Clear 07/18/2021 Lab Results Component Value Date CREATININE 0.60 08/03/2021 GLUCOSE 210 08/03/2021 GLUCOSE 229 06/04/2011 Medical Decision Making-Imaging: Narrative EXAMINATION: ONE XRAY VIEW OF THE CHEST 07/20/2021 6:47 am COMPARISON: July 19, 2021, chest exam HISTORY: ORDERING SYSTEM PROVIDED HISTORY: shortness of breath, TECHNOLOGIST PROVIDED HISTORY: shortness of breath, Reason for Exam: uprt port FINDINGS: Stable satisfactorily positioned endotracheal tube and right PICC line catheter Normal cardiac silhouette There are no significant pleural, parenchymal or mediastinal findings Degenerative changes of the thoracic spine/shoulders Impression Stable support lines No acute cardiopulmonary findings EXAM: XR CHEST PORTABLE HISTORY: Reason for exam:->cough COMPARISON: June 28, 2021. TECHNIQUE: A single AP portable view of the chest. FINDINGS: There is patchy airspace disease at the left infrahilar region medially. The heart size is at the upper limits of normal. There are mild to moderate degenerative changes of the thoracic spine and moderate degenerative changes of each shoulder, with a metallic anchor noted within the left humeral head. Impression Left infrahilar patchy airspace disease consistent with a left lower lobe pneumonia. Recommend follow-up imaging 4 weeks post treatment to document resolution. EXAMINATION: CT OF THE CERVICAL SPINE WITHOUT CONTRAST 07/10/2021 1:23 pm TECHNIQUE: CT of the cervical spine was performed without the administration of intravenous contrast. Multiplanar reformatted images are provided for review. Automated exposure control, iterative reconstruction, and/or weight based adjustment of the mA/kV was utilized to reduce the radiation dose to as low as reasonably achievable. COMPARISON: None. HISTORY: ORDERING SYSTEM PROVIDED HISTORY: sp c1/2 laminectomy TECHNOLOGIST PROVIDED HISTORY: sp c1/2 laminectomy Reason for Exam: SP C 1/ LAMINECTOMY FINDINGS: Destructive changes consistent with the history of osteomyelitis in C2 is redemonstrated accounting for differences in technique relatively unchanged. There is soft tissue prominence, absence of contrast limits evaluation and the abscess described previously is not well redemonstrated. Posterior laminectomy at C1. There is mild loss of the remaining vertebral heights. No acute fracture or subluxation noted. There is severe loss of disc height at C6-7 and C7-T1 with disc osteophyte complex and moderate to severe canal and foraminal stenosis at C6-7. The soft tissues demonstrate postsurgical changes posteriorly, no gross abscess is identified with minimal amount of air noted within the posterior soft tissues the level of C1 and C2 probably postoperative in nature. Impression Postsurgical changes as detailed with laminectomy. There are destructive changes noted of C2 consistent with the history of osteomyelitis which appear relatively unchanged compared to the prior exam. The abscess described previously is not well redemonstrated. Follow-up is suggested with MRI as clinically warranted. Narrative EXAMINATION: CT OF THE CHEST WITHOUT CONTRAST 07/15/2021 4:41 pm TECHNIQUE: CT of the chest was performed without the administration of intravenous contrast. Multiplanar reformatted images are provided for review. Automated exposure control, iterative reconstruction, and/or weight based adjustment of the mA/kV was utilized to reduce the radiation dose to as low as reasonably achievable. COMPARISON: 06/29/2021 HISTORY: ORDERING SYSTEM PROVIDED HISTORY: r/o pneumonia TECHNOLOGIST PROVIDED HISTORY: r/o pneumonia Reason for Exam: r/o pneumonia FINDINGS: Mediastinum: There is mild calcified plaque throughout the aorta which is mildly dilated. There mild coronary artery calcifications which are unchanged. The pulmonary arteries unremarkable. There are small lymph nodes scattered in the mediastinum with the largest along the subcarinal region measuring 1.4 cm which is more prominent. There is a small pericardial effusion which is more prominent. There is a right PICC line in place with the tip in the distal superior vena cava. Lungs/pleura: The lungs are mildly hyperinflated there is some hazy subsegmental right basilar opacity posterior medially which is more prominent. There is some mild ground-glass opacities along the right lower lobe and lingula which are more apparent. No pulmonary nodule or mass is seen. There is a small left pleural effusion with subsegmental left basilar opacity posteriorly and associated air bronchograms which is more prominent. There is no endobronchial lesion. Upper Abdomen: The gallbladder has been removed. The adrenals are normal. The liver is mildly enlarged with cortical scarring around both kidneys. There is a 12 mm rounded hypodensity upper pole left kidney posteriorly and a 13 mm rounded hypodensity laterally along the left kidney which is are unchanged Soft Tissues/Bones: The bones are intact. No aggressive osseous lesion is seen. Impression Subsegmental atelectasis and consolidation left lower lobe which may represent pneumonia with associated small left pleural effusion which is more apparent. Recommend follow-up until resolution. Mild subsegmental infiltrate or atelectasis right lower lobe. Hazy ground-glass opacities along the right lower lobe and lingula which could represent early infiltrates from multisegmental bronchopneumonia and is more prominent. Small pericardial effusion which is more apparent Borderline enlarged mediastinal lymph nodes which are more prominent and are probably reactive in etiology. Recommend follow-up. Status post right PICC line placement in good position Mildly complex cystic appearing masses upper pole left kidney which are unchanged. Suggest ultrasound correlation. Medical Decision Wbijij-Ypzuyaaz-Iithn: SARS-CoV-2, Rapid COVID-19, Rapid Collected: 07/13/21 7260 Result status: Final Resulting lab: [facility] Reference range: Not Detected Value: DETECTED Abnormal Comment: Rapid NAAT: The specimen is POSITIVE for SARS-Cov-2, the novel coronavirus associated with COVID-19. This test has been authorized by the FDA under an Emergency Use Authorization (EUA) for use by authorized laboratories. The ID NOW COVID-19 assay is designed to detect the virus that causes COVID-19 in patients with signs and symptoms of infection who are suspected of COVID-19. An individual without symptoms of COVID-19 and who is not shedding SARS-CoV-2 virus would expect to have a negative (not detected) result in this assay. Fact sheet for Healthcare Providers: https://www.fda.gov/media/995913/downl oad Fact sheet for Patients: https://www.fda.gov/media/726461/downl oad Methodology: Isothermal Nucleic Acid Amplification Culture, Respiratory Order: [id number] Status: Final result Visible to patient: No (not released) Next appt: Today at 02:30 PM in Radiology (STV MRI RM 1 (1.5T)) Specimen Information: Sputum Aspirated 0 Result Notes Component 07/24/21 1525 Specimen Description .ASPIRATED SPUTUM Direct Exam < 10 EPITHELIAL CELLS/LPF Direct Exam >25 NEUTROPHILS/LPF Direct Exam MANY GRAM NEGATIVE RODS Abnormal Culture KLEBSIELLA AEROGENES HEAVY GROWTH Abnormal Culture NO NORMAL ROB Resulting Agency [facility] Susceptibility Klebsiella aerogenes (1) Antibiotic Interpretation Microscan Method Status aztreonam Sensitive <=1 BACTERIAL SUSCEPTIBILITY PANEL BECKY Final ceFAZolin Resistant BACTERIAL SUSCEPTIBILITY PANEL BECKY Final cefTRIAXone Sensitive <=1 BACTERIAL SUSCEPTIBILITY PANEL BECKY Final ciprofloxacin Sensitive <=0.25 BACTERIAL SUSCEPTIBILITY PANEL BECKY Final gentamicin Sensitive <=1 BACTERIAL SUSCEPTIBILITY PANEL BECKY Final tobramycin Sensitive <=1 BACTERIAL SUSCEPTIBILITY PANEL BECKY Final trimethoprim-sulfamethoxazole Sensitive <=20 BACTERIAL SUSCEPTIBILITY PANEL BECKY Final piperacillin-tazobactam Sensitive 16 BACTERIAL SUSCEPTIBILITY PANEL BECKY Final Medical Decision Making-Other: Note: Labs, medications, radiologic studies were reviewed with personal review of films Large amounts of data were reviewed Discussed with nursing Staff, development planner Infection Control and Prevention measures reviewed All prior entries were reviewed Administer medications as ordered Prognosis: Very Guarded Discharge planning reviewed Follow up as outpatient. Thank you for allowing us to participate in the care of this patient. Please call with questions. Jany Francis, GUEST RELATIONS COORDINATOR - LAND SURVEYING MANAGER ATTESTATION: I have discussed the case, including pertinent history and exam findings with the GUEST RELATIONS COORDINATOR. I have evaluated the History, physical findings and pictures of the patient and the coffey elements of the encounter have been performed by me. I have reviewed the laboratory data, other diagnostic studies and discussed them with the GUEST RELATIONS COORDINATOR. I have updated the medical record where necessary. I agree with the assessment, plan and orders as documented by the GUEST RELATIONS COORDINATOR. Seth Stokes MD. Pager: - Office: Images from the original note were not included. Critical Care Team - Daily Progress Note Date and time: 08/03/2021 7:48 AM Patient's name: Meg Georges Patient's account/billing number: [id number] Patient's Date of : 1965 Age: 56 y.o. Date of Admission: 07/14/2021 4:12 PM Length of stay during current admission: 20 Primary Care Physician: Neri Santa Sr, DO ICU Attending Physician: Dr. Willoughby Code Status: Full Code Reason for ICU admission: No chief complaint on file. SUBJECTIVE: OVERNIGHT EVENTS: S/p trach 07/30. Afebrile overnight. UOP 0.7 ml/kg/h. Off fentanyl and propofol since yesterday. Precedex 0.5 for agitation. Per RN and RT, the tracheostomy site is having discharge which is thick and purulent. F.A.S.T. M. H.U.G.S. B.I.D. Feeding Diet: Diet NPO ADULT TUBE FEEDING; Nasogastric; Peptide Based; Continuous; 25; Yes; 20; Q 4 hours; 45; 30; Q 4 hours Fluids: NS 10ml/hr Family: sister is contact Analgesic: oxycodone IR 10mg q6h Sedation: precedex Thrombo-prophylaxis: [x] Enoxaparin, [] Unfract. Heparin Subcutaneously, [] EPC Cuffs Mobility: none Heads up: yes Ulcer prophylaxis: [] PPI Agent, [x] U3Hboal, [] Sucralfate, [] Other: Glycemic control: high ISS, lantus 16 subq is held Spontaneous breathing trial: trach Bowel regimen/urine output: milk of mag Indwelling catheter/lines: yes De-escalation: yes CURRENT VENTILATION STATUS: [x] Ventilator [] BIPAP [] Nasal Cannula [] Room Air IF INTUBATED, ET TUBE MARKING AT LOWER LIP: [facility] SEDATION: Precedex gtt [] Propofol gtt [] Versed gtt [] Ativan gtt [] No Sedation DIARRHEA: [x] No [] Yes (C. Difficile status: [] positive [] negative [] pending) VASOPRESSORS: [x] No [] Yes If yes - [] Levophed [] Dopamine [] Vasopressin [] Dobutamine [] Phenylephrine [] Epinephrine CENTRAL LINES: [] No [x] Yes (Date of Insertion: 07/24/21 ) If yes - [] Right IJ [] Left IJ [x] Right Femoral [] Left Femoral [] Right Subclavian [] Left Subclavian MEADE'S CATHETER: [] No [x] Yes (Date of Insertion: present on admission ) UcritiRINE OUTPUT: [x] Good [] Low [] Anuric Review of Systems Unable to perform ROS: Intubated OBJECTIVE: VITAL SIGNS: BP 133/62 Pulse 82 Temp 99 F (37.2 C) (Oral) Resp 15 Ht 5' 5 (1.651 m) Wt 137 lb 9.1 oz (62.4 kg) LMP 12/02/2011 SpO2 100% BMI 22.89 kg/m Tmax over 24 hours: Temp (24hrs), Av.9 F (37.2 C), Min:98.6 F (37 C), Max:99.1 F (37.3 C) Patient Vitals for the past 8 hrs: BP Temp Temp src Pulse Resp SpO2 Weight 08/03/21 0700 82 15 100 % 08/03/21 0645 83 15 100 % 08/03/21 0630 83 15 100 % 08/03/21 0623 83 15 100 % 08/03/21 0615 83 15 100 % 08/03/21 0600 99 F (37.2 C) Oral 84 15 100 % 08/03/21 0545 84 15 100 % 08/03/21 0530 85 15 100 % 08/03/21 0515 87 15 100 % 08/03/21 0500 88 15 100 % 137 lb 9.1 oz (62.4 kg) 08/03/21 0445 92 23 100 % 08/03/21 0430 89 19 100 % 08/03/21 0415 85 17 100 % 08/03/21 0400 133/62 98.7 F (37.1 C) Oral 84 15 100 % 08/03/21 0345 84 15 100 % 08/03/21 0330 84 15 100 % 08/03/21 0315 86 15 100 % 08/03/21 0300 86 15 100 % 08/03/21 0245 87 15 100 % 08/03/21 0230 88 15 100 % 08/03/21 0215 93 21 100 % 08/03/21 0200 99.1 F (37.3 C) Axillary 91 17 100 % 08/03/21 0145 87 15 100 % 08/03/21 0130 87 15 100 % 08/03/21 0115 87 15 100 % 08/03/21 0100 87 15 100 % 08/03/21 0045 88 15 100 % 08/03/21 0030 89 15 100 % 08/03/21 0015 87 (!) 9 100 % 08/03/21 0000 133/61 99 F (37.2 C) Axillary 88 12 100 % Intake/Output Summary (Last 24 hours) at 08/03/2021 0748 Last data filed at 08/03/2021 0700 Gross per 24 hour Intake 1606.67 ml Output 2000 ml Net -393.33 ml Date 08/03/21 0000 - 08/03/21 2359 Shift 5012-8138 5378-4527 5142-5484 24 Hour Total INTAKE I.V.(mL/kg) 93.8(1.5) 93.8(1.5) NG/GT(mL/kg) 199(3.2) 199(3.2) IV Piggyback(mL/kg) 397.9(6.4) 397.9(6.4) Shift Total(mL/kg) 690.7(11.1) 690.7(11.1) OUTPUT Urine(mL/kg/hr) 200 200 Stool(mL/kg) 200(3.2) 200(3.2) Shift Total(mL/kg) 400(6.4) 400(6.4) Weight (kg) 62.4 62.4 62.4 62.4 Wt Readings from Last 3 Encounters: 08/03/21 137 lb 9.1 oz (62.4 kg) 07/13/21 140 lb (63.5 kg) 07/10/21 161 lb 11.2 oz (73.3 kg) Body mass index is 22.89 kg/m . PHYSICAL EXAM: General: No acute distress, intubated, on sedation HEENT: Trach in place. Some purulent discharge, foul smelling, erythema. Normocephalic, atraumatic. Cardiovascular: Normal cardiac rate present, sinus rhythm on telemetry. Pulmonary: Mechanical breath sounds bilaterally Abdominal: Soft, nondistended, nontender. No palpable masses. Neuro: Opens eyes to touch. Skin: erythema around trach site MEDICATIONS: Scheduled Meds: insulin lispro 0-18 Units SubCUTAneous Q6H famotidine 20 mg Per NG tube BID valproic acid 250 mg Per NG tube BID oxyCODONE 10 mg Oral Q6H magnesium hydroxide 30 mL Per NG tube Daily carvedilol 25 mg Oral BID WC [Held by provider] insulin glargine 16 Units SubCUTAneous Nightly latanoprost 1 drop Both Eyes Nightly [Held by provider] lactobacillus 1 capsule Oral Daily with breakfast [Held by provider] gabapentin 200 mg Oral TID nafcillin 2,000 mg IntraVENous Q6H [Held by provider] aspirin 325 mg Oral Daily [Held by provider] calcium carbonate-vitamin D3 2 tablet Oral Daily [Held by provider] levothyroxine 100 mcg Oral Daily enoxaparin 40 mg SubCUTAneous Daily Continuous Infusions: dexmedetomidine 0.5 mcg/kg/hr (08/03/21 0700) sodium chloride 10 mL/hr at 08/03/21 0700 sodium chloride dextrose PRN Meds: bisacodyl, 10 mg, Daily PRN sodium chloride, , PRN LORazepam, 2 mg, Q4H PRN potassium chloride, 40 mEq, PRN Or potassium alternative oral replacement, 40 mEq, PRN Or potassium chloride, 10 mEq, PRN fentanNYL, 25 mcg, Q1H PRN sodium chloride flush, 5-40 mL, PRN ondansetron, 4 mg, Q8H PRN Or ondansetron, 4 mg, Q6H PRN acetaminophen, 650 mg, Q6H PRN Or acetaminophen, 650 mg, Q6H PRN dextromethorphan-guaiFENesin, 5 mL, Q4H PRN dextrose bolus, 125 mL, PRN Or dextrose bolus, 250 mL, PRN glucagon (rDNA), 1 mg, PRN dextrose, 100 mL/hr, PRN magnesium sulfate, 1,000 mg, PRN SUPPORT DEVICES: [x] Ventilator [] BIPAP [] Nasal Cannula [] Room Air VENT SETTINGS (Comprehensive) (if applicable): PRVC mode, FiO2 30%, PEEP 5, Respiratory Rate 15, Tidal Volume 450 Vent Information Ventilator ID: [id number] Vent Mode: PRVC Ventilator Discontinue: (S) Yes Additional Respiratory Assessments Heart Rate: 82 Resp: 15 SpO2: 100 % End Tidal CO2: 30 (%) Position: Semi-Simon's Humidification Source: E Lab Results Component Value Date PHART 7.406 07/06/2021 SSP2MEC 34.8 07/06/2021 PO2ART 279.0 07/06/2021 [id number] 21.4 07/06/2021 [id number] 99.4 07/06/2021 FIO2 30.0 08/03/2021 Lactic Acid: Lab Results Component Value Date LACTA 1.0 07/13/2021 LACTA 1.6 06/28/2021 DATA: Complete Blood Count: Recent Labs 08/01/2145108/02/2145308/03/21445 WBC 14.0* 12.3* 11.9* HGB 9.1* 8.0* 8.3* MCV 94.4 94.0 94.3 PLT 490* 398 429 RBC 2.87* 2.50* 2.63* HCT 27.1* 23.5* 24.8* MCH 31.7 32.0 31.6 MCHC 33.6 34.0 33.5 RDW 18.8* 18.5* 18.5* MPV 8.7 8.4 8.8 PT/INR: Lab Results Component Value Date PROTIME 13.1 07/25/2021 INR 1.2 07/25/2021 PTT: Lab Results Component Value Date APTT 23.9 06/28/2021 Basal Metabolic Profile: Recent Labs 08/01/2145108/02/2145308/03/21445 NA 138 137 139 K 3.2* 3.3* 3.6* BUN CREATININE 0.72 0.67 0.60 CL 105 106 107 CO2 Magnesium: Lab Results Component Value Date MG 1.7 08/02/2021 MG 1.7 08/01/2021 MG 1.6 07/31/2021 Phosphorus: Lab Results Component Value Date PHOS 1.9 07/17/2021 S. Calcium: Recent Labs 08/03/21445 CALCIUM 8.3* S. Ionized Calcium:No results for input(s): IONCA in the last 72 hours. Urinalysis: Lab Results Component Value Date NITRU NEGATIVE 07/18/2021 COLORU Yellow 07/18/2021 PHUR 8.5 07/18/2021 WBCUA 2 TO 5 07/18/2021 RBCUA 20 TO 50 07/18/2021 BACTERIA MANY 07/07/2021 SPECGRAV 1.010 07/18/2021 LEUKOCYTESUR NEGATIVE 07/18/2021 UROBILINOGEN Normal 07/18/2021 BILIRUBINUR NEGATIVE 07/18/2021 GLUCOSEU NEGATIVE 07/18/2021 KETUA SMALL 07/18/2021 CARDIAC ENZYMES: No results for input(s): CKMB, CKMBINDEX, TROPONINI in the last 72 hours. Invalid input(s): CKTOTAL;3 BNP: No results for input(s): BNP in the last 72 hours. LFTS No results for input(s): ALKPHOS, ALT, AST, BILITOT, BILIDIR, LABALBU in the last 72 hours. AMYLASE/LIPASE/AMMONIA No results for input(s): AMYLASE, LIPASE, AMMONIA in the last 72 hours. Last 3 Blood Glucose: Recent Labs 08/01/21 0452 08/02/21 0454 08/03/21 0446 GLUCOSE 212* 247* 210* HgBA1c: Lab Results Component Value Date LABA1C 9.4 06/28/2021 TSH: Lab Results Component Value Date TSH 2.06 07/24/2021 ANEMIA STUDIES No results for input(s): LABIRON, TIBC, FERRITIN, [id number], FOLATE, OCCULTBLD in the last 72 hours. Cultures during this admission: Blood cultures: [] None drawn [x] Negative [] Positive (Details: ) Urine Culture: [x] None drawn [] Negative [] Positive (Details: ) Sputum Culture: [] None drawn [] Negative [x] Positive (Details: 07/25/21 gram- Klebsiella, completed levaquin 7 days) Endotracheal aspirate: [x] None drawn [] Negative [] Positive (Details: ) Chest Xray (08/03/2021): ASSESSMENT: 1. Spinal epidural abscess 2. Pneumonia 3. Odontoid fracture 4. Anemia 5. Psoas hematoma 6. Sepsis secondary to MSSA PLAN: Neurologic: Neuro checks per protocol Switch to precedex and oxy for sedation. EEG showed diffuse slowing Spinal epidural abscess MSSA treated with nafcillin every 6 hours Plan for atlantoaxial fixation versus possible occipital cervical fixation -Will review plan with NSG Cardiovascular: Hemodynamically stability improving: weaned norepinephrine, off pressors MAP goal 65 Pulmonary: Maintain oxygen sats >92% On ventilator S/p tracheostomy on 07/30; trach change planned 08/04/21; contacted ENT about purulent discharge and concern for wound, they will see the patient today Lower lobe bilateral pneumonia, worsening; no pulmonary embolism Continue Levaquin GI/Nutrition Ulcer Prophylaxis: famotidine 20mg bid Diet: NPO Restarted tube feeds Renal/Fluid/Electrolyte UOP: 0.7 ON ID WBC: Lab Results Component Value WBC 13.6 Spinal epidural abscess Pneumonia Antimicrobials: nafcillin for MSSA septicemia, levofloxacin started for sputum culture growing klebsiella and pneumonia on CT. Hematology: ENT wants hgb above 9. Currently stable. Will await ENT evaluation. Endocrine: glucose 200s this morning. Will switch to high dose SSI MSK: -Psoas Hematoma-likely source of drop in hemoglobin, general surgery consulted, no acute intervention indicated. DVT Prophylaxis hgb stable no surgical intervention. Discharge Needs: pending clinical course CODE STATUS: Full Code Xin Grove MD Department of Internal Medicine/ Critical care [facility], [facility]) 08/03/2021, 7:48 AM Associated attestation - Aniket Padron MD - 08/03/2021 3:44 PM EDT Attending Physician Statement I have discussed the case of Meg Georges, including pertinent history and exam findings with the resident/fellow/medical student/SCREED OPERATOR/PA. I have seen and examined the patient and the coffey elements of the encounter have been performed by me. I agree with the assessment, plan and orders as documented by the resident/fellow/medical student/SCREED OPERATOR/PA With changes made to the note as needed. Pt was seen during rounds. Review of Systems: In addition to the pertinent positives and negatives as stated within HPI and the review of systems as documented in their notes, all other systems were reviewed when able to and are reported negative. Patient remains on the ventilator on 30% oxygen Blood sugars are increased, adjust insulin Positive fluid balance of 6.4 L ABG with acute respiratory alkalosis Tolerating tube feeding Stable anemia To have tracheostomy change done tomorrow by ENT surgery Improving leukocytosis On Lovenox and Pepcid Total critical care time caring for this patient with life threatening, unstable organ failure, including direct patient contact, management of life support systems, review of data including imaging and labs, discussions with other team members and physicians at least 30 Min so far today, excluding procedures. Aniket Padron MD 08/03/2021 3:44 PM Joy Wound Ostomy Continence Nurse Follow Up NAME: Meg Georges AGE: 56 y.o. GENDER: female : 1965 TODAY'S DATE: 08/02/2021 Subjective: Reason for WOCN Evaluation and Assessment: sacral wound Meg Georges is a 56 y.o. female referred by: [x]? Physician []? Nursing []? Other: Wound Identification: Irritant contact dermatitis related to fecal, urinary, or dual incontinence. Objective: BP 126/64 Pulse 90 Temp 98.8 F (37.1 C) (Oral) Resp 17 Ht 5' 5 (1.651 m) Wt 136 lb 14.5 oz (62.1 kg) LMP 12/02/2011 SpO2 100% BMI 22.78 kg/m Danielito Risk Score: Danielito Scale Score: 13 LABS CBC: Lab Results Component Value Date WBC 12.3 08/02/2021 RBC 2.50 08/02/2021 HGB 8.0 08/02/2021 CMP: Albumin: Lab Results Component Value Date LABALBU 2.3 07/24/2021 LABALBU 4.2 06/04/2011 PT/INR: Lab Results Component Value Date PROTIME 13.1 07/25/2021 INR 1.2 07/25/2021 HgBA1c: Lab Results Component Value Date LABA1C 9.4 06/28/2021 PTT: No components found for: LABPTT Assessment: Measurements: 08/02/21 1537 Wound 07/19/21 shannan-anal to sacral moisture associated skin damage Date First Assessed/Time First Assessed: 07/19/21 1031 Present on Hospital Admission: Yes Wound Description (Comments): shannan-anal to sacral moisture associated skin damage Dressing Status New dressing applied Dressing/Treatment Zinc paste Wound Length (cm) 3.5 cm Wound Width (cm) 3 cm Wound Depth (cm) 0.1 cm Wound Surface Area (cm^2) 10.5 cm^2 Change in Wound Size % (l*w) 78.57 Wound Volume (cm^3) 1.05 cm^3 Wound Healing % 79 Wound Assessment Dusky;[place]/red;Fibrinous Drainage Amount Scant Drainage Description Serosanguinous Odor None Shannan-wound Assessment Intact Margins Undefined edges Decreased area of non-intact skin. Dusky, macerated skin noted rt sacrococcygeal area. Distal to this the skin is denuded with a fibrinous covering. FMS has been placed due to watery, frequent, involuntary stools. Response to treatment: Well tolerated by patient. Plan: Plan of Care: Turn every 2 hours Float heels off of bed with pillows under calves Use lift sling to reposition patient to minimize potential for shear injury. Routine incontinence care with incontinence barrier cloths and zinc oxide cream. Apply zinc oxide cream BID and prn incontinence to the perianal skin. Moisture wicking under pads Specialty Bed Required : Isoflex surface in use []? Low Air Loss [x]? Pressure Redistribution []? Fluid Immersion []? Bariatric []? Total Pressure Relief []? Other: Discharge Plan: TBD Patient/Caregiver Teaching: Patient unable to respond currently. []? Indicates understanding [x]? Needs reinforcement []? Unsuccessful []? Verbal Understanding []? Demonstrated understanding []? No evidence of learning []? Refused teaching []? N/A Otolaryngology staff note POD 3 s/p tracheostomy placement Patient was seen and examined on rounds this morning On vent, sedated, though weaning Trach in good position. No peristomal wound breakdown c-collar in place Trach care being performed with collar care Plan for trach change on POD 5 (Friday08/04/21) Adilson Coyle MD Pediatric Otolaryngology-Head and Neck Surgery [facility] Otolaryngology group Office ph# [phone] Also available in [employer] Images from the original note were not included. [facility] -Progress Note Today's Date and Time: 08/02/2021, 9:23 AM Impression : Covid 19 Covid test: 07-13-21: Positive Prior MSSA septicemia. Bacteremia persistent from 06-28-21 through 07-04-21 CIDP chronic IVIG therapy - immunosuppressed Ulcer on the left foot Allergy to keflex and avelox - tolerates PNC Prior Erosive changes at craniocervical junction by CT cervical spine 06-29-21 S/P cervical spine surgery on 07-06-21 for relief of pressure from an epidural plegmon, causing compression of cervical medullary junction. Phlegmon found, no abscess. Cultures no growth. Bone described as soft raising concern for osteomyelitis. Hx of Hypothyroidism Diabetes mellitus type 2 Essential hypertension Acute respiratory failure 07/24/21 Recommendations: Covid treatment: Bebtelovimab infusion received 07-15-21 Decadron: Not indicated Remdesivir not indicated Actemra: not indicated Antimicrobial treatment: Continue nafcillin. Tentative Stop date 08-15-21 (6 weeks Rx) Concern for nafcillin induced hypokalemia-Improving KCl replacement for hypokalemia Nausea and vomiting with Cefazolin Sputum culture ordered 07/24/21-Klebsiella heavy growth Levaquin IV 750 mg daily x 7 days initiated 07/25/21. Stop date 08-01-21 Medical Decision Making/Summary/Discussion:08/02/2021 Patient intubated 07/24/21 for acute respiratory failure. MRI Brain and Cervical spine 07/26/21: Findings suggestive of osteomyelitis at the skull base including clivus, occipital condyles and C1 and C2 with associated pathologic fracture of C2. There is a 4.1 cm abscess collection within the posterior paraspinal soft tissues at the level of the skull base. Improved compression of cervical medullary junction from prior MRI Trach placed 07/30/21 per ENT Infection Control Recommendations [place] Precautions Isolate for Covid until 07-23-21 Antimicrobial Stewardship Recommendations Simplification of therapy Targeted therapy Coordination of Outpatient Care: Estimated Length of IV antimicrobials: 08-15-21 Patient will need Midline Catheter Insertion: no Patient will need PICC line Insertion:no Patient will need: Home IV , Infusion Center, SNF, LTAC: TBD Patient will need outpatient wound care:No Chief complaint/reason for consultation: Covid 19 MSSA septicemia Osteomyelitis cervical spine History of Present Illness: Meg Georges is a 56 y.o.-year-old female who was initially admitted on 07/14/2021. Patient seen at the request of . INITIAL HISTORY: Patient known to our service because of prior admission on 06-28-21 when she presented with altered mentation and was found to have a MSSA septicemia (06-28-21). She was also found to have erosive changes at the craniocervical junction which may be related to arthritis or osteomyelitis by CT cervical spine of 06-29-21. 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 Patient received treatment with Nafcillin. She also underwent cervical spine surgery on 07-06-21 for relief of pressure from an epidural plegmon/abscess, causing compression of cervical medullary junction. Soft bone and phlegmon were found but no definite abscess. Cultures of tissue yielded no growth. Patient was released to receive treatment with Nafcillin through 08-20-21. Patient was transferred back to [facility] on 07-14-21 because of a positive Covid test obtained on 07-13-21 Speech therapy consulted for swallow evaluation. She had aspiration of pudding on 07-19-21 CXR 07-20-21: No acute cardiopulmonary findings Speech therapy suggested NPO with tube feeds Impression CT chest 07/24/21 Consolidation in the lower lobes bilaterally that is worse on the left compared to the right consistent with pneumonia. No acute or chronic pulmonary Impression CT head 07/24/21 No acute intracranial abnormality. Chronic sinusitis most pronounced in the ethmoid air cells and left maxillary sinus. CURRENT EVALUATION : 08/02/2021 Patient evaluated in ICU Afebrile VS stable The patient is on the ventilator via trach. FiO2: 30% SpO2: 100-->99 -->100% She underwent a trach placement per ENT on 07/30/21. Weaning trial today Cervical collar in place. MRI with 4.1 cm abscess collection within the posterior paraspinal soft tissues at the level of the base of the skull. Surgical intervention for atlantoaxial fixation versus possible occipital cervical fixation at the discretion of Neurosurgery. Very difficult clinical situation. Klebsiella on sputum from 07/24/21 On Levaquin until 08-01-21 Leukocytosis is imprving Discussed with RN Labs, X rays reviewed: 08/02/2021 BUN: 11-->14-->15-->15 Cr:0.71-->0.70-->0.72-->0.67 K: 3.7-->3.3-->3.2-->3.3 WBC: 14.2-->14.0-->14.0-->12.3 Hb:9.3-->9.5-->9.1-->8.0 Plat: 491-->502-->490-->398 CRP: 183.3 SARS Co V2: positive 07-13-21 Cultures: Urine: Blood: 06-28-21: MSSA 06-30-21: MSSA 07-01-21: MSSA 07-02-21: MSSA 07-03-21: MSSA 07-04-21: MSSA 07-07-21: No growth 07-08-21: No growth 07-13-21: No growth 07/14/21: No growth 07/17/21: No growth 07-22-21: No growth X 2 Sputum : 07/24/21: Klebsiella Aerogenes Wound: Cervical tissue neck: 07-06-21: No growth Discussed with patient, RN, 07-26-21 CT Chest 07/24/21 07/15/21 CXR 07/24/21 07-13-21: Impression MRI Brain and cervical spine 07/26/21 Cervical spine MRI: 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 Pathologic fracture of dense process of C2 is associated with its retroflexion and mild narrowing at the craniocervical junction. Mild degenerative findings of cervical spine as described. Brain MRI: There is no acute infarction, intracranial hemorrhage, or intracranial mass lesion. Mild chronic microangiopathic ischemic disease. Mild generalized volume loss. Severe mucosal thickening of frontal ethmoidal maxillary and sphenoid sinuses. Moderate mucosal thickening of mastoid air cells. Impression CT chest/abd/pelvis 07/15/21 Subsegmental atelectasis and consolidation left lower lobe which may represent pneumonia with associated small left pleural effusion which is more apparent. Recommend follow-up until resolution. Mild subsegmental infiltrate or atelectasis right lower lobe. Hazy ground-glass opacities along the right lower lobe and lingula which could represent early infiltrates from multisegmental bronchopneumonia and is more prominent. Small pericardial effusion which is more apparent Borderline enlarged mediastinal lymph nodes which are more prominent and are probably reactive in etiology. Recommend follow-up. I have personally reviewed the past medical history, past surgical history, medications, social history, and family history, and I have updated the database accordingly. 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 LEFT C2 RHIZOTOMY, EXPLORATION OF EPIDURAL PHLEGMON performed by Alisia Crump DO at [facility] OR CHOLECYSTECTOMY EYE SURGERY [address] shunt for open angle glaucoma. MRI compatible- device is all silicone LAMINECTOMY 07/06/2021 Posterior C1, LEFT C2 RHIZOTOMY, EXPLORATION OF EPIDURAL PHLEGMON PICC INSERTION VASCULAR ACCESS TEAM 07/10/2021 SHOULDER SURGERY right TRACHEOSTOMY 07/30/2021 TRACHEOSTOMY N/A 07/30/2021 TRACHEOTOMY performed by Erica Santiago MD at [facility] OR UPPER GASTROINTESTINAL ENDOSCOPY N/A 07/02/2021 EGD ESOPHAGOGASTRODUODENOSCOPY performed by Hari Wagner MD at [facility] Medications: insulin lispro 0-18 Units SubCUTAneous Q6H oxyCODONE 10 mg Oral Q6H magnesium hydroxide 30 mL Per NG tube Daily labetalol 10 mg IntraVENous Once carvedilol 25 mg Oral BID WC fentanNYL 50 mcg IntraVENous Once fentanNYL 50 mcg IntraVENous Once famotidine (PEPCID) injection 20 mg IntraVENous BID valproate sodium (DEPACON) IVPB 250 mg IntraVENous Q12H [Held by provider] insulin glargine 16 Units SubCUTAneous Nightly latanoprost 1 drop Both Eyes Nightly [Held by provider] lactobacillus 1 capsule Oral Daily with breakfast [Held by provider] gabapentin 200 mg Oral TID nafcillin 2,000 mg IntraVENous Q6H [Held by provider] aspirin 325 mg Oral Daily [Held by provider] calcium carbonate-vitamin D3 2 tablet Oral Daily [Held by provider] levothyroxine 100 mcg Oral Daily enoxaparin 40 mg SubCUTAneous Daily Social History: Social History Socioeconomic History Marital status: Spouse name: Not on file Number of children: Not on file Years of education: Not on file Highest education level: Not on file Occupational History Not on file Tobacco Use Smoking status: Former Smoker Years: 20.00 Types: Cigarettes Quit date: 10/06/1995 Years since quittin.8 Smokeless tobacco: Never Used Substance and Sexual Activity Alcohol use: No Drug use: No Sexual activity: Not on file Other Topics Concern Not on file Social History Narrative Not on file Social Determinants of Health Financial Resource Strain: Difficulty of Paying Living Expenses: Not on file Food Insecurity: Worried About Running Out of Food in the Last Year: Not on file Ran Out of Food in the Last Year: Not on file Transportation Needs: Lack of Transportation (Medical): Not on file Lack of Transportation (Non-Medical): Not on file Physical Activity: Days of Exercise per Week: Not on file Minutes of Exercise per Session: Not on file Stress: Feeling of Stress : Not on file Social Connections: Frequency of Communication with Friends and Family: Not on file Frequency of Social Gatherings with Friends and Family: Not on file Attends Mosque Services: Not on file Active Member of Clubs or Organizations: Not on file Attends Club or Organization Meetings: Not on file Marital Status: Not on file Intimate Partner Violence: Fear of Current or Ex-Partner: Not on file Emotionally Abused: Not on file Physically Abused: Not on file Sexually Abused: Not on file Housing Stability: Unable to Pay for Housing in the Last Year: Not on file Number of Places Lived in the Last Year: Not on file Unstable Housing in the Last Year: Not on file Family History: Family History Problem Relation Age of Onset Diabetes Mother Cancer Father Allergies: Moxifloxacin, Peg 3350-electrolytes, Tapentadol, Avelox [moxifloxacin hydrochloride], and Cephalexin Review of Systems: BC-Trach/vent Constitutional: No fevers or chills. No systemic complaints Head: No headaches Eyes: No double vision or blurry vision. No conjunctival inflammation. ENT: No sore throat or runny nose.. No hearing loss, tinnitus or vertigo. Difficulty swallowing. Cervical collar Cardiovascular: No chest pain or palpitations.No shortness of breath. No MARINELLI Lung: No shortness of breath or cough. No sputum production Abdomen: No nausea, vomiting, diarrhea, or abdominal pain.. No cramps. Genitourinary: No increased urinary frequency, or dysuria. No hematuria. No suprapubic or CVA pain Musculoskeletal: No muscle aches or pains. No joint effusions, swelling or deformities Hematologic: No bleeding or bruising. Neurologic: No headache, weakness, numbness, or tingling. Integument: No rash, no ulcers. Psychiatric: No depression. Endocrine: No polyuria, no polydipsia, no polyphagia. Physical Examination : Patient Vitals for the past 8 hrs: BP Temp Temp src Pulse Resp SpO2 Weight 08/02/21 0907 98 08/02/21 0900 (!) 178/87 08/02/21 0826 (!) 156/78 (!) 108 22 08/02/21 0807 97 17 100 % 08/02/21 0800 (P) 99 F (37.2 C) (P) Oral 08/02/21 0600 (!) 129/56 98.9 F (37.2 C) Oral 94 15 100 % 08/02/21 0500 90 15 100 % 136 lb 14.5 oz (62.1 kg) 08/02/21 0436 97 17 100 % 08/02/21 0400 (!) 125/56 99.1 F (37.3 C) Oral 91 15 100 % 08/02/21 0300 95 15 100 % 08/02/21 0209 15 08/02/21 0200 (!) 107/58 98.8 F (37.1 C) Oral 98 15 100 % General Appearance: sedated on trach/vent Head: Normocephalic, no trauma Eyes: Pupils equal, round, reactive to light and accommodation; extraocular movements intact; sclera anicteric; conjunctivae pink. No embolic phenomena. ENT: Tracheostomy site Oropharynx clear, without erythema, exudate, or thrush. No tenderness of sinuses. Mouth/throat: mucosa pink and moist. No lesions. Dentition in good repair. Neck:Supple, without lymphadenopathy. Thyroid normal, No bruits.Cervical collar in place Pulmonary/Chest: Clear to auscultation, without wheezes, rales, or rhonchi. No dullness to percussion. Cardiovascular: Regular rate and rhythm without murmurs, rubs, or gallops. Abdomen: Soft, non tender. Bowel sounds normal. No organomegaly All four Extremities: No cyanosis, clubbing, edema, or effusions. Neurologic: BC-trach/vent Skin: Warm and dry with good turgor.No signs of peripheral arterial or venous insufficiency. No ulcerations. No open wounds. Medical Decision Making -Laboratory: I have independently reviewed/ordered the following labs: CBC with Differential: Recent Labs 08/01/2145108/02/21453 WBC 14.0* 12.3* HGB 9.1* 8.0* HCT 27.1* 23.5* PLT 490* 398 LYMPHOPCT 19* 16* MONOPCT 5 8 BMP: Recent Labs 08/01/2145108/02/21453 NA 138 137 K 3.2* 3.3* CL 105 106 CO2 20 22 BUN 15 15 CREATININE 0.72 0.67 MG 1.7 1.7 Hepatic Function Panel: No results for input(s): PROT, LABALBU, BILIDIR, IBILI, BILITOT, ALKPHOS, ALT, AST in the last 72 hours. No results for input(s): RPR in the last 72 hours. No results for input(s): HIV in the last 72 hours. No results for input(s): BC in the last 72 hours. Lab Results Component Value Date RBC 2.50 08/02/2021 WBC 12.3 08/02/2021 TURBIDITY Clear 07/18/2021 Lab Results Component Value Date CREATININE 0.67 08/02/2021 GLUCOSE 247 08/02/2021 GLUCOSE 229 06/04/2011 Medical Decision Making-Imaging: Narrative EXAMINATION: ONE XRAY VIEW OF THE CHEST 07/20/2021 6:47 am COMPARISON: July 19, 2021, chest exam HISTORY: ORDERING SYSTEM PROVIDED HISTORY: shortness of breath, TECHNOLOGIST PROVIDED HISTORY: shortness of breath, Reason for Exam: uprt port FINDINGS: Stable satisfactorily positioned endotracheal tube and right PICC line catheter Normal cardiac silhouette There are no significant pleural, parenchymal or mediastinal findings Degenerative changes of the thoracic spine/shoulders Impression Stable support lines No acute cardiopulmonary findings EXAM: XR CHEST PORTABLE HISTORY: Reason for exam:->cough COMPARISON: June 28, 2021. TECHNIQUE: A single AP portable view of the chest. FINDINGS: There is patchy airspace disease at the left infrahilar region medially. The heart size is at the upper limits of normal. There are mild to moderate degenerative changes of the thoracic spine and moderate degenerative changes of each shoulder, with a metallic anchor noted within the left humeral head. Impression Left infrahilar patchy airspace disease consistent with a left lower lobe pneumonia. Recommend follow-up imaging 4 weeks post treatment to document resolution. EXAMINATION: CT OF THE CERVICAL SPINE WITHOUT CONTRAST 07/10/2021 1:23 pm TECHNIQUE: CT of the cervical spine was performed without the administration of intravenous contrast. Multiplanar reformatted images are provided for review. Automated exposure control, iterative reconstruction, and/or weight based adjustment of the mA/kV was utilized to reduce the radiation dose to as low as reasonably achievable. COMPARISON: None. HISTORY: ORDERING SYSTEM PROVIDED HISTORY: sp c1/2 laminectomy TECHNOLOGIST PROVIDED HISTORY: sp c1/2 laminectomy Reason for Exam: SP C 1/2 LAMINECTOMY FINDINGS: Destructive changes consistent with the history of osteomyelitis in C2 is redemonstrated accounting for differences in technique relatively unchanged. There is soft tissue prominence, absence of contrast limits evaluation and the abscess described previously is not well redemonstrated. Posterior laminectomy at C1. There is mild loss of the remaining vertebral heights. No acute fracture or subluxation noted. There is severe loss of disc height at C6-7 and C7-T1 with disc osteophyte complex and moderate to severe canal and foraminal stenosis at C6-7. The soft tissues demonstrate postsurgical changes posteriorly, no gross abscess is identified with minimal amount of air noted within the posterior soft tissues the level of C1 and C2 probably postoperative in nature. Impression Postsurgical changes as detailed with laminectomy. There are destructive changes noted of C2 consistent with the history of osteomyelitis which appear relatively unchanged compared to the prior exam. The abscess described previously is not well redemonstrated. Follow-up is suggested with MRI as clinically warranted. Narrative EXAMINATION: CT OF THE CHEST WITHOUT CONTRAST 07/15/2021 4:41 pm TECHNIQUE: CT of the chest was performed without the administration of intravenous contrast. Multiplanar reformatted images are provided for review. Automated exposure control, iterative reconstruction, and/or weight based adjustment of the mA/kV was utilized to reduce the radiation dose to as low as reasonably achievable. COMPARISON: 06/29/2021 HISTORY: ORDERING SYSTEM PROVIDED HISTORY: r/o pneumonia TECHNOLOGIST PROVIDED HISTORY: r/o pneumonia Reason for Exam: r/o pneumonia FINDINGS: Mediastinum: There is mild calcified plaque throughout the aorta which is mildly dilated. There mild coronary artery calcifications which are unchanged. The pulmonary arteries unremarkable. There are small lymph nodes scattered in the mediastinum with the largest along the subcarinal region measuring 1.4 cm which is more prominent. There is a small pericardial effusion which is more prominent. There is a right PICC line in place with the tip in the distal superior vena cava. Lungs/pleura: The lungs are mildly hyperinflated there is some hazy subsegmental right basilar opacity posterior medially which is more prominent. There is some mild ground-glass opacities along the right lower lobe and lingula which are more apparent. No pulmonary nodule or mass is seen. There is a small left pleural effusion with subsegmental left basilar opacity posteriorly and associated air bronchograms which is more prominent. There is no endobronchial lesion. Upper Abdomen: The gallbladder has been removed. The adrenals are normal. The liver is mildly enlarged with cortical scarring around both kidneys. There is a 12 mm rounded hypodensity upper pole left kidney posteriorly and a 13 mm rounded hypodensity laterally along the left kidney which is are unchanged Soft Tissues/Bones: The bones are intact. No aggressive osseous lesion is seen. Impression Subsegmental atelectasis and consolidation left lower lobe which may represent pneumonia with associated small left pleural effusion which is more apparent. Recommend follow-up until resolution. Mild subsegmental infiltrate or atelectasis right lower lobe. Hazy ground-glass opacities along the right lower lobe and lingula which could represent early infiltrates from multisegmental bronchopneumonia and is more prominent. Small pericardial effusion which is more apparent Borderline enlarged mediastinal lymph nodes which are more prominent and are probably reactive in etiology. Recommend follow-up. Status post right PICC line placement in good position Mildly complex cystic appearing masses upper pole left kidney which are unchanged. Suggest ultrasound correlation. Medical Decision Esdmgb-Vlebdxji-Xhmhu: SARS-CoV-2, Rapid COVID-19, Rapid Collected: 07/13/21 2240 Result status: Final Resulting lab: [email or web address] Reference range: Not Detected Value: DETECTED Abnormal Comment: Rapid NAAT: The specimen is POSITIVE for SARS-Cov-2, the novel coronavirus associated with COVID-19. This test has been authorized by the FDA under an Emergency Use Authorization (EUA) for use by authorized laboratories. The ID NOW COVID-19 assay is designed to detect the virus that causes COVID-19 in patients with signs and symptoms of infection who are suspected of COVID-19. An individual without symptoms of COVID-19 and who is not shedding SARS-CoV-2 virus would expect to have a negative (not detected) result in this assay. Fact sheet for Healthcare Providers: https://www.fda.gov/media/920055/downl oad Fact sheet for Patients: https://www.fda.gov/media/516700/downl oad Methodology: Isothermal Nucleic Acid Amplification Culture, Respiratory Order: [id number] Status: Final result Visible to patient: No (not released) Next appt: Today at 02:30 PM in Radiology (STV MRI RM 1 (1.5T)) Specimen Information: Sputum Aspirated 0 Result Notes Component 07/24/21 5115 Specimen Description .ASPIRATED SPUTUM Direct Exam < 10 EPITHELIAL CELLS/LPF Direct Exam >25 NEUTROPHILS/LPF Direct Exam MANY GRAM NEGATIVE RODS Abnormal Culture KLEBSIELLA AEROGENES HEAVY GROWTH Abnormal Culture NO NORMAL ROB Resulting Agency [facility] Susceptibility Klebsiella aerogenes (1) Antibiotic Interpretation Microscan Method Status aztreonam Sensitive <=1 BACTERIAL SUSCEPTIBILITY PANEL BECKY Final ceFAZolin Resistant BACTERIAL SUSCEPTIBILITY PANEL BECKY Final cefTRIAXone Sensitive <=1 BACTERIAL SUSCEPTIBILITY PANEL BECKY Final ciprofloxacin Sensitive <=0.25 BACTERIAL SUSCEPTIBILITY PANEL BECKY Final gentamicin Sensitive <=1 BACTERIAL SUSCEPTIBILITY PANEL BECKY Final tobramycin Sensitive <=1 BACTERIAL SUSCEPTIBILITY PANEL BECKY Final trimethoprim-sulfamethoxazole Sensitive <=20 BACTERIAL SUSCEPTIBILITY PANEL BECKY Final piperacillin-tazobactam Sensitive 16 BACTERIAL SUSCEPTIBILITY PANEL BECKY Final Medical Decision Making-Other: Note: Labs, medications, radiologic studies were reviewed with personal review of films Large amounts of data were reviewed Discussed with nursing Staff, development planner Infection Control and Prevention measures reviewed All prior entries were reviewed Administer medications as ordered Prognosis: Very Guarded Discharge planning reviewed Follow up as outpatient. Thank you for allowing us to participate in the care of this patient. Please call with questions. Jany Francis, GUEST RELATIONS COORDINATOR - LAND SURVEYING MANAGER ATTESTATION: I have discussed the case, including pertinent history and exam findings with the GUEST RELATIONS COORDINATOR. I have evaluated the History, physical findings and pictures of the patient and the coffey elements of the encounter have been performed by me. I have reviewed the laboratory data, other diagnostic studies and discussed them with the GUEST RELATIONS COORDINATOR. I have updated the medical record where necessary. I agree with the assessment, plan and orders as documented by the GUEST RELATIONS COORDINATOR. Seth Stokes MD. Pager: - Office: Critical Care Team - Daily Progress Note Date and time: 08/02/2021 7:50 AM Patient's name: Meg Barton Patient's account/billing number: [id number] Patient's Date of : 1965 Age: 56 y.o. Date of Admission: 07/14/2021 4:12 PM Length of stay during current admission: 19 Primary Care Physician: Neri Santa Sr, DO ICU Attending Physician: Dr. Willoughby Code Status: Full Code Reason for ICU admission: No chief complaint on file. SUBJECTIVE: OVERNIGHT EVENTS: S/p trach on 07/30. Per nursing is following more commands. Intermittently comes off prop. Off fentanyl. On precedex and oxy currently. F.A.S.T. M. H.U.G.S. B.I.D. Feeding Diet: Diet NPO ADULT TUBE FEEDING; Nasogastric; Peptide Based; Continuous; 25; Yes; 20; Q 4 hours; 45; 30; Q 4 hours Fluids: NS 10ml/hr Family: planning to call Analgesic: oxy Sedation: prop intermittently, precedex Thrombo-prophylaxis: [x] Enoxaparin, [] Unfract. Heparin Subcutaneously, [] EPC Cuffs Mobility: none Heads up: yes Ulcer prophylaxis: [] PPI Agent, [x] N1Vapns, [] Sucralfate, [] Other: Glycemic control: high insulin Spontaneous breathing trial: no Bowel regimen/urine output: milk of mag Indwelling catheter/lines: yes De-escalation: yes AWAKE & FOLLOWING COMMANDS: [x] No [] Yes CURRENT VENTILATION STATUS: [x] Ventilator [] BIPAP [] Nasal Cannula [] Room Air IF INTUBATED, ET TUBE MARKING AT LOWER LIP: cms SEDATION: Fentanyl gtt [x] Propofol gtt [] Versed gtt [] Ativan gtt [] No Sedation DIARRHEA: [x] No [] Yes (C. Difficile status: [] positive [] negative [] pending) VASOPRESSORS: [x] No [] Yes If yes - [] Levophed [] Dopamine [] Vasopressin [] Dobutamine [] Phenylephrine [] Epinephrine CENTRAL LINES: [] No [x] Yes (Date of Insertion: 07/24/21 ) If yes - [] Right IJ [] Left IJ [x] Right Femoral [] Left Femoral [] Right Subclavian [] Left Subclavian MEADE'S CATHETER: [] No [x] Yes (Date of Insertion: present on admission ) UcritiRINE OUTPUT: [x] Good [] Low [] Anuric Review of Systems Unable to perform ROS: Intubated OBJECTIVE: VITAL SIGNS: BP (!) 129/56 Pulse 94 Temp 98.9 F (37.2 C) (Oral) Resp 15 Ht 5' 5 (1.651 m) Wt 136 lb 14.5 oz (62.1 kg) LMP 12/02/2011 SpO2 100% BMI 22.78 kg/m Tmax over 24 hours: Temp (24hrs), Av.8 F (37.1 C), Min:98.3 F (36.8 C), Max:99.3 F (37.4 C) Patient Vitals for the past 8 hrs: BP Temp Temp src Pulse Resp SpO2 Weight 08/02/21 0600 (!) 129/56 98.9 F (37.2 C) Oral 94 15 100 % 08/02/21 0500 90 15 100 % 136 lb 14.5 oz (62.1 kg) 08/02/21 0436 97 17 100 % 08/02/21 0400 (!) 125/56 99.1 F (37.3 C) Oral 91 15 100 % 08/02/21 0300 95 15 100 % 08/02/21 0209 15 08/02/21 0200 (!) 107/58 98.8 F (37.1 C) Oral 98 15 100 % 08/02/21 0100 (!) 108 26 100 % 08/02/21 0032 (!) 104 30 100 % 08/02/21 0000 131/64 98.3 F (36.8 C) Oral (!) 103 26 100 % Intake/Output Summary (Last 24 hours) at 08/02/2021 0750 Last data filed at 08/02/2021 0626 Gross per 24 hour Intake 2222.79 ml Output 950 ml Net 1272.79 ml Date 08/02/21 0000 - 08/02/21 2359 Shift 4042-5992 9426-1455 4336-8617 24 Hour Total INTAKE I.V.(mL/kg) 109.3(1.8) 109.3(1.8) NG/GT(mL/kg) 473(7.6) 473(7.6) IV Piggyback(mL/kg) 147.9(2.4) 147.9(2.4) Shift Total(mL/kg) 730.2(11.8) 730.2(11.8) OUTPUT Urine(mL/kg/hr) 300 300 Shift Total(mL/kg) 300(4.8) 300(4.8) Weight (kg) 62.1 62.1 62.1 62.1 Wt Readings from Last 3 Encounters: 08/02/21 136 lb 14.5 oz (62.1 kg) 07/13/21 140 lb (63.5 kg) 07/10/21 161 lb 11.2 oz (73.3 kg) Body mass index is 22.78 kg/m . PHYSICAL EXAM: General: No acute distress, intubated, no sedation HEENT: Normocephalic, atraumatic. Sclera white, pupils reactive. No cervical lymphadenopathy Cardiovascular: Tachycardia present, sinus rhythm on telemetry. Pulmonary: Mechanical breath sounds bilaterally Abdominal: Soft, nondistended, nontender. No palpable masses. Neuro: Reacts appropriately to external stimuli, wiggles toes and moves fingers on command Skin: No rashes lesions abrasions or bruises. MEDICATIONS: Scheduled Meds: insulin lispro 0-18 Units SubCUTAneous Q6H oxyCODONE 10 mg Oral Q6H magnesium hydroxide 30 mL Per NG tube Daily labetalol 10 mg IntraVENous Once carvedilol 25 mg Oral BID WC fentanNYL 50 mcg IntraVENous Once fentanNYL 50 mcg IntraVENous Once famotidine (PEPCID) injection 20 mg IntraVENous BID valproate sodium (DEPACON) IVPB 250 mg IntraVENous Q12H [Held by provider] insulin glargine 16 Units SubCUTAneous Nightly latanoprost 1 drop Both Eyes Nightly [Held by provider] lactobacillus 1 capsule Oral Daily with breakfast [Held by provider] gabapentin 200 mg Oral TID nafcillin 2,000 mg IntraVENous Q6H [Held by provider] aspirin 325 mg Oral Daily [Held by provider] calcium carbonate-vitamin D3 2 tablet Oral Daily [Held by provider] levothyroxine 100 mcg Oral Daily enoxaparin 40 mg SubCUTAneous Daily Continuous Infusions: dexmedetomidine 0.2 mcg/kg/hr (08/02/21625) sodium chloride 10 mL/hr at 08/02/21625 sodium chloride propofol Stopped (08/02/21 05) fentaNYL 50 mcg/mL Stopped (08/02/21624) dextrose PRN Meds: bisacodyl, 10 mg, Daily PRN sodium chloride, , PRN LORazepam, 2 mg, Q4H PRN sodium chloride flush, 10 mL, PRN potassium chloride, 40 mEq, PRN Or potassium alternative oral replacement, 40 mEq, PRN Or potassium chloride, 10 mEq, PRN fentanNYL, 25 mcg, Q1H PRN sodium chloride flush, 5-40 mL, PRN ondansetron, 4 mg, Q8H PRN Or ondansetron, 4 mg, Q6H PRN acetaminophen, 650 mg, Q6H PRN Or acetaminophen, 650 mg, Q6H PRN dextromethorphan-guaiFENesin, 5 mL, Q4H PRN dextrose bolus, 125 mL, PRN Or dextrose bolus, 250 mL, PRN glucagon (rDNA), 1 mg, PRN dextrose, 100 mL/hr, PRN magnesium sulfate, 1,000 mg, PRN SUPPORT DEVICES: [x] Ventilator [] BIPAP [] Nasal Cannula [] Room Air VENT SETTINGS (Comprehensive) (if applicable): PRVC mode, FiO2 30%, PEEP 5, Respiratory Rate 15, Tidal Volume 450 Vent Information Ventilator ID: [id number] Vent Mode: PRVC Ventilator Discontinue: (S) Yes Additional Respiratory Assessments Heart Rate: 94 Resp: 15 SpO2: 100 % End Tidal CO2: 32 (%) Position: Semi-Simon's Humidification Source: [facility] Lab Results Component Value Date PHART 7.406 07/06/2021 [id number] 34.8 07/06/2021 PO2ART 279.0 07/06/2021 [id number] 21.4 07/06/2021 [id number] 99.4 07/06/2021 FIO2 30.0 08/02/2021 Lactic Acid: Lab Results Component Value Date LACTA 1.0 07/13/2021 LACTA 1.6 06/28/2021 DATA: Complete Blood Count: Recent Labs 07/31/21 0519 07/31/21 0519 07/31/21 1854 08/01/21 0452 08/02/21 0454 WBC 14.0* -- -- 14.0* 12.3* HGB 9.5* < > 9.2* 9.1* 8.0* MCV 91.6 -- -- 94.4 94.0 PLT 502* -- -- 490* 398 RBC 2.99* -- -- 2.87* 2.50* HCT 27.4* < > 27.4* 27.1* 23.5* MCH 31.8 -- -- 31.7 32.0 MCHC 34.7 -- -- 33.6 34.0 RDW 18.4* -- -- 18.8* 18.5* MPV 8.7 -- -- 8.7 8.4 < > = values in this interval not displayed. PT/INR: Lab Results Component Value Date PROTIME 13.1 07/25/2021 INR 1.2 07/25/2021 PTT: Lab Results Component Value Date APTT 23.9 06/28/2021 Basal Metabolic Profile: Recent Labs 07/31/21 0508/01/2145108/02/21453 NA 140 138 137 K 3.3* 3.2* 3.3* BUN 14 15 15 CREATININE 0.78 0.72 0.67 CL 106 105 106 CO2 20 20 22 Magnesium: Lab Results Component Value Date MG 1.7 08/02/2021 MG 1.7 08/01/2021 MG 1.6 07/31/2021 Phosphorus: Lab Results Component Value Date PHOS 1.9 07/17/2021 S. Calcium: Recent Labs 08/02/21453 CALCIUM 8.0* S. Ionized Calcium:No results for input(s): IONCA in the last 72 hours. Urinalysis: Lab Results Component Value Date NITRU NEGATIVE 07/18/2021 COLORU Yellow 07/18/2021 PHUR 8.5 07/18/2021 WBCUA 2 TO 5 07/18/2021 RBCUA 20 TO 50 07/18/2021 BACTERIA MANY 07/07/2021 SPECGRAV 1.010 07/18/2021 LEUKOCYTESUR NEGATIVE 07/18/2021 UROBILINOGEN Normal 07/18/2021 BILIRUBINUR NEGATIVE 07/18/2021 GLUCOSEU NEGATIVE 07/18/2021 KETUA SMALL 07/18/2021 CARDIAC ENZYMES: No results for input(s): CKMB, CKMBINDEX, TROPONINI in the last 72 hours. Invalid input(s): CKTOTAL;3 BNP: No results for input(s): BNP in the last 72 hours. LFTS No results for input(s): ALKPHOS, ALT, AST, BILITOT, BILIDIR, LABALBU in the last 72 hours. AMYLASE/LIPASE/AMMONIA No results for input(s): AMYLASE, LIPASE, AMMONIA in the last 72 hours. Last 3 Blood Glucose: Recent Labs 07/31/2151808/01/2145108/02/21453 GLUCOSE 209* 212* 247* HgBA1c: Lab Results Component Value Date LABA1C 9.4 06/28/2021 TSH: Lab Results Component Value Date TSH 2.06 07/24/2021 ANEMIA STUDIES No results for input(s): LABIRON, TIBC, FERRITIN, [id number], FOLATE, OCCULTBLD in the last 72 hours. Cultures during this admission: Blood cultures: [] None drawn [x] Negative [] Positive (Details: ) Urine Culture: [x] None drawn [] Negative [] Positive (Details: ) Sputum Culture: [] None drawn [] Negative [x] Positive (Details: 07/25/21 gram- rods) Endotracheal aspirate: [x] None drawn [] Negative [] Positive (Details: ) Chest Xray (08/02/2021): ASSESSMENT: 1. Spinal epidural abscess 2. Pneumonia 3. Odontoid fracture 4. Anemia 5. Psoas hematoma 6. Sepsis secondary to MSSA PLAN: Neurologic: Neuro checks per protocol Switch to precedex and oxy for sedation. More responsive this AM EEG showed diffuse slowing Spinal epidural abscess MSSA treated with nafcillin every 6 hours Plan for atlantoaxial fixation versus possible occipital cervical fixation Cardiovascular: Hemodynamically stability improving: weaned norepinephrine, off pressors MAP goal 65 Pulmonary: Maintain oxygen sats >92% On ventilator S/p tracheostomy on 07/30 Lower lobe bilateral pneumonia, worsening; no pulmonary embolism Continue Levaquin GI/Nutrition Ulcer Prophylaxis: famotidine 20mg bid Diet: NPO Will restart tube feeds Renal/Fluid/Electrolyte UOP: 1.3 ON ID WBC: Lab Results Component Value WBC 13.6 Spinal epidural abscess Pneumonia Antimicrobials: nafcillin for MSSA septicemia, levofloxacin started for sputum culture growing gram- rods and pneumonia on CT. Hematology: ENT wants hgb above 9. 1 U prbc given ON. Currently stable Endocrine: glucose 200s this morning. Will switch to high dose SSI MSK: -Psoas Hematoma-likely source of drop in hemoglobin, general surgery consulted, no acute intervention indicated. DVT Prophylaxis hgb stable no surgical intervention. Discharge Needs: pending clinical course CODE STATUS: Full Code Keri Hart MD Department of Internal Medicine/ Critical care [facility]) 08/02/2021, 7:50 AM Associated attestation - Aniket Padron MD - 08/02/2021 4:40 PM EDT Attending Physician Statement I have discussed the case of Meg Georges, including pertinent history and exam findings with the resident/fellow/medical student/SCREED OPERATOR/PA. I have seen and examined the patient and the coffey elements of the encounter have been performed by me. I agree with the assessment, plan and orders as documented by the resident/fellow/medical student/SCREED OPERATOR/PA With changes made to the note as needed. Pt was seen during rounds. Review of Systems: In addition to the pertinent positives and negatives as stated within HPI and the review of systems as documented in their notes, all other systems were reviewed when able to and are reported negative. On the ventilator on 30% oxygen ABG without significant acid-base disorder On CVVHD Blood sugars are acceptable Anemia slightly worse, continue to monitor Supplement potassium hypokalemia Improving leukocytosis Tolerating tube feeding On Lovenox and Pepcid Total critical care time caring for this patient with life threatening, unstable organ failure, including direct patient contact, management of life support systems, review of data including imaging and labs, discussions with other team members and physicians at least 30 Min so far today, excluding procedures. Aniket Padron MD 08/02/2021 4:39 PM Otolaryngology staff note POD 2 s/p tracheostomy placement Patient was seen and examined on rounds this morning On vent, sedated, though weaning Trach in good position. No peristomal wound breakdown c-collar in place Trach care being performed with collar care Plan for trach change on POD 5 (Friday08/04/21) Adilson Coyle MD Pediatric Otolaryngology-Head and Neck Surgery [facility] Otolaryngology group Office ph# [phone] Also available in [facility] Images from the original note were not included. Palliative Care Progress Note NAME: Meg Georges AGE: 56 y.o. GENDER: female : 1965 TODAY'S DATE: 08/01/2021 Reason for Consult: goals of care History of Present Illness The patient is a 56 y.o. Non- / non female who presents with Covid Referred to Palliative Care by [x] Physician [] Nursing [] Family Request [] Other: She was admitted to the ICU service for COVID [U07.1]. Her hospital course has been associated with Covid, respiratory failure, spinal abscess. The patient has a complicated medical history and has been hospitalized since 07/14/2021 4:12 PM. Patient remains on ventilator to tracheostomy. Patient opens eyes when name spoke but does not follow commands. Patient continues on Levaquin for pneumonia and Nafcillan for spinal abscess. Neurosurgery plans surgery when patient more alert. Patient labs from today include Elysium 1.7, triglycerides 164, WBC 14.0, RBC 2.87, hemoglobin 9.1, hematocrit 27.1, platelets 490, glucose 212, BUN 15, creatinine 0.72, calcium 7.9, sodium 138, potassium 3.2, chloride 105. Palliative care will continue to follow. Healthcare power of consumer attorney placed on patient's chart. 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 LEFT C2 RHIZOTOMY, EXPLORATION OF EPIDURAL PHLEGMON performed by Alisia Crump DO at [facility] OR CHOLECYSTECTOMY EYE SURGERY [address] shunt for open angle glaucoma. MRI compatible- device is all silicone LAMINECTOMY 07/06/2021 Posterior C1, LEFT C2 RHIZOTOMY, EXPLORATION OF EPIDURAL PHLEGMON PICC INSERTION VASCULAR ACCESS TEAM 07/10/2021 SHOULDER SURGERY right TRACHEOSTOMY 07/30/2021 TRACHEOSTOMY N/A 07/30/2021 TRACHEOTOMY performed by Erica Santiago MD at [facility] OR UPPER GASTROINTESTINAL ENDOSCOPY N/A 07/02/2021 EGD ESOPHAGOGASTRODUODENOSCOPY performed by Hari Wagner MD at [facility] Endoscopy FAMILY HISTORY Family History Problem Relation Age of Onset Diabetes Mother Cancer Father SOCIAL HISTORY Social History Tobacco History Smoking Status Former Smoker Quit date 10/06/1995 Smoking Frequency For 20 years Smoking Tobacco Type Cigarettes Smokeless Tobacco Use Never Used Alcohol History Alcohol Use Status No Drug Use Drug Use Status No Sexual Activity Sexually Active Not Asked Assessment REVIEW OF SYSTEMS [x] UNABLE TO OBTAIN: Patient is on ventilator and does not answer questions or follow commands unable to assess ROS presently. PHYSICAL ASSESSMENT: General: [] Oriented x3 [] well appearing [x] Intubated [x] ill appearing [] Other: Mental Status: [] normal mental status exam [] drowsy [] Confused [x] Other: Does not answer questions or follow commands Cardiovascular: [x] Regular rate/rhythm [] Arrhythmia [] Other: Chest: [] Effort normal [] lungs clear [] respiratory distress [] Tachypnea [x] Other: Patient on ventilator to tracheostomy respirations relaxed Abdomen: [] Soft/non-tender [] Normal appearance [] Distended [] Ascites [x] Other: NG with tube feeding Neurological: [] Normal Speech [] Normal Sensation [] Deficits present: Patient on ventilator does not answer questions or follow commands Extremity: [x] normal skin color/temp [] clubbing/cyanosis [] No edema [] Other: Palliative Performance Scale: ___60% Ambulation reduced; Significant disease; Can't do hobbies/housework; intake normal or reduced; occasional assist; LOC full/confusion ___50% Mainly sit/lie; Extensive disease; Can't do any work; Considerable assist; intake normal or reduced; LOC full/confusion _x__40% Mainly in bed; Extensive disease; Mainly assist; intake normal or reduced; LOC full/confusion ___30% Bed Bound; Extensive disease; Total care; intake reduced; LOCfull/confusion ___20% Bed Bound; Extensive disease; Total care; intake minimal; Drowsy/coma ___10% Bed Bound; Extensive disease; Total care; Mouth care only; Drowsy/coma ___0 Plan Palliative Interaction: Called and updated Hina patient sister on patient condition. Opens eyes to name. Moving arms more in bed. I also informed sister that I received patient healthcare POA and placed it on her chart. Palliative care will continue to follow. Education/support to family Discharge planning/helping to coordinate care Communications with primary service Pharmacologic pain management Providing support for coping/adaptation/distress of family Discussing meaning/purpose Caregiver support/education Continue with current plan of care Code status clarified: Full Code Principle Problem/Diagnosis: COVID Additional Assessments: Principal Problem: COVID Active Problems: CIDP (chronic inflammatory demyelinating polyneuropathy) ([facility]) Bacteremia Hypothyroidism Hypokalemia Type 2 diabetes mellitus with diabetic polyneuropathy [facility] [facility] Primary hypertension Metabolic encephalopathy MSSA (methicillin susceptible Staphylococcus aureus) septicemia ([facility]) CRP elevated Bandemia Septic arthritis of cervical spine (HCC) 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 Hypomagnesemia Normocytic anemia Acute respiratory failure with hypoxemia (HCC) Atlantoaxial instability Resolved Problems: * No resolved hospital problems. * 1- Symptom management/ pain control Pain Assessment: Patient on ventilator with fentanyl Anxiety: Patient on ventilator with fentanyl Dyspnea: Patient on ventilator with fentanyl Fatigue: generalized weakness Other: 2- Goals of care evaluation The patient goals of care are improve or maintain function/quality of life Goals of care discussed with: [] Patient independently [] Patient and Family [x] Family or Healthcare DPOA independently [] Unable to discuss with patient, family/DPOA not present 3- Code Status Full Code 4- Other recommendations - We will continue to provide comfort and support to the patient and the family Palliative Care will continue to follow Ms. Georges's care as needed. The note has been dictated by maco, typing errors may be a possibility Thank you for allowing Palliative Care to participate in the care of Ms. Georges . Palliative care number [phone] Please call with any palliative questions or concerns. Palliative Care Team is available via perfect serve or via phone. Images from the original note were not included. [facility] -Progress Note Today's Date and Time: 08/01/2021, 9:40 AM Impression : Covid 19 Covid test: 07-13-21: Positive Prior MSSA septicemia. Bacteremia persistent from 06-28-21 through 07-04-21 CIDP chronic IVIG therapy - immunosuppressed Ulcer on the left foot Allergy to keflex and avelox - tolerates PNC Prior Erosive changes at craniocervical junction by CT cervical spine 06-29-21 S/P cervical spine surgery on 07-06-21 for relief of pressure from an epidural plegmon, causing compression of cervical medullary junction. Phlegmon found, no abscess. Cultures no growth. Bone described as soft raising concern for osteomyelitis. Hx of Hypothyroidism Diabetes mellitus type 2 Essential hypertension Acute respiratory failure 07/24/21 Recommendations: Covid treatment: Bebtelovimab infusion received 07-15-21 Decadron: Not indicated Remdesivir not indicated Actemra: not indicated Antimicrobial treatment: Continue nafcillin. Tentative Stop date 08-15-21 (6 weeks Rx) Concern for nafcillin induced hypokalemia-Improving KCl replacement for hypokalemia Nausea and vomiting with Cefazolin Sputum culture ordered 07/24/21-Klebsiella heavy growth Levaquin IV 750 mg daily x 7 days initiated 07/25/21. Stop date 08-01-21 Medical Decision Making/Summary/Discussion:08/01/2021 Patient intubated 07/24/21 for acute respiratory failure. MRI Brain and Cervical spine 07/26/21: Findings suggestive of osteomyelitis at the skull base including clivus, occipital condyles and C1 and C2 with associated pathologic fracture of C2. There is a 4.1 cm abscess collection within the posterior paraspinal soft tissues at the level of the skull base. Improved compression of cervical medullary junction from prior MRI Trach placed 07/30/21 per ENT Infection Control Recommendations [place] Precautions Isolate for Covid until 07-23-21 Antimicrobial Stewardship Recommendations Simplification of therapy Targeted therapy Coordination of Outpatient Care: Estimated Length of IV antimicrobials: 08-15-21 Patient will need Midline Catheter Insertion: no Patient will need PICC line Insertion:no Patient will need: Home IV , Infusion Center, SNF, LTAC: TBD Patient will need outpatient wound care:No Chief complaint/reason for consultation: Covid 19 MSSA septicemia Osteomyelitis cervical spine History of Present Illness: Meg Georges is a 56 y.o.-year-old female who was initially admitted on 07/14/2021. Patient seen at the request of . INITIAL HISTORY: Patient known to our service because of prior admission on 06-28-21 when she presented with altered mentation and was found to have a MSSA septicemia (06-28-21). She was also found to have erosive changes at the craniocervical junction which may be related to arthritis or osteomyelitis by CT cervical spine of 06-29-21. 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 Patient received treatment with Nafcillin. She also underwent cervical spine surgery on 07-06-21 for relief of pressure from an epidural plegmon/abscess, causing compression of cervical medullary junction. Soft bone and phlegmon were found but no definite abscess. Cultures of tissue yielded no growth. Patient was released to receive treatment with Nafcillin through 08-20-21. Patient was transferred back to [facility] on 07-14-21 because of a positive Covid test obtained on 07-13-21 Speech therapy consulted for swallow evaluation. She had aspiration of pudding on 07-19-21 CXR 07-20-21: No acute cardiopulmonary findings Speech therapy suggested NPO with tube feeds Impression CT chest 07/24/21 Consolidation in the lower lobes bilaterally that is worse on the left compared to the right consistent with pneumonia. No acute or chronic pulmonary Impression CT head 07/24/21 No acute intracranial abnormality. Chronic sinusitis most pronounced in the ethmoid air cells and left maxillary sinus. CURRENT EVALUATION : 08/01/2021 Patient evaluated in ICU Afebrile VS stable The patient is on the ventilator via trach. FiO2: 30% SpO2: 100-->99 -->100% She underwent a trach placement per ENT on 07/30/21. She appears comfortable upon evaluation. She is not following commands but tracks with eyes off sedation. She becomes hypertensive and tachypneic off sedation Cervical collar in place. MRI with 4.1 cm abscess collection within the posterior paraspinal soft tissues at the level of the base of the skull. Plans for atlantoaxial fixation versus possible occipital cervical fixation tentatively this week. Surgical intervention at the discretion of Neurosurgery. Very difficult clinical situation. Klebsiella on sputum from 07/24/21 On Levaquin until 08-01-21 Discussed with RN Labs, X rays reviewed: 08/01/2021 BUN: 11-->14-->15 Cr:0.71-->0.70-->0.72 K: 3.7-->3.3-->3.2 WBC: 14.2-->14.0-->14.0 Hb:9.3-->9.5-->9.1 Plat: 491-->502-->490 CRP: 183.3 SARS Co V2: positive 07-13-21 Cultures: Urine: Blood: 06-28-21: MSSA 06-30-21: MSSA 07-01-21: MSSA 07-02-21: MSSA 07-03-21: MSSA 07-04-21: MSSA 07-07-21: No growth 07-08-21: No growth 07-13-21: No growth 07/14/21: No growth 07/17/21: No growth 07-22-21: No growth X 2 Sputum : 07/24/21: Klebsiella Aerogenes Wound: Cervical tissue neck: 07-06-21: No growth Discussed with patient, RN, 07-26-21 CT Chest 07/24/21 07/15/21 CXR 07/24/21 07-13-21: Impression MRI Brain and cervical spine 07/26/21 Cervical spine MRI: 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 Pathologic fracture of dense process of C2 is associated with its retroflexion and mild narrowing at the craniocervical junction. Mild degenerative findings of cervical spine as described. Brain MRI: There is no acute infarction, intracranial hemorrhage, or intracranial mass lesion. Mild chronic microangiopathic ischemic disease. Mild generalized volume loss. Severe mucosal thickening of frontal ethmoidal maxillary and sphenoid sinuses. Moderate mucosal thickening of mastoid air cells. Impression CT chest/abd/pelvis 07/15/21 Subsegmental atelectasis and consolidation left lower lobe which may represent pneumonia with associated small left pleural effusion which is more apparent. Recommend follow-up until resolution. Mild subsegmental infiltrate or atelectasis right lower lobe. Hazy ground-glass opacities along the right lower lobe and lingula which could represent early infiltrates from multisegmental bronchopneumonia and is more prominent. Small pericardial effusion which is more apparent Borderline enlarged mediastinal lymph nodes which are more prominent and are probably reactive in etiology. Recommend follow-up. I have personally reviewed the past medical history, past surgical history, medications, social history, and family history, and I have updated the database accordingly. 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 LEFT C2 RHIZOTOMY, EXPLORATION OF EPIDURAL PHLEGMON performed by Alisia Crump DO at [facility] OR CHOLECYSTECTOMY EYE SURGERY [address] shunt for open angle glaucoma. MRI compatible- device is all silicone LAMINECTOMY 07/06/2021 Posterior C1, LEFT C2 RHIZOTOMY, EXPLORATION OF EPIDURAL PHLEGMON PICC INSERTION VASCULAR ACCESS TEAM 07/10/2021 SHOULDER SURGERY right TRACHEOSTOMY 07/30/2021 TRACHEOSTOMY N/A 07/30/2021 TRACHEOTOMY performed by Erica Santiago MD at [facility] OR UPPER GASTROINTESTINAL ENDOSCOPY N/A 07/02/2021 EGD ESOPHAGOGASTRODUODENOSCOPY performed by Hari Wagner MD at [facility] Endoscopy Medications: insulin lispro 0-12 Units SubCUTAneous Q6H magnesium hydroxide 30 mL Per NG tube Daily labetalol 10 mg IntraVENous Once carvedilol 25 mg Oral BID WC fentanNYL 50 mcg IntraVENous Once fentanNYL 50 mcg IntraVENous Once famotidine (PEPCID) injection 20 mg IntraVENous BID valproate sodium (DEPACON) IVPB 250 mg IntraVENous Q12H [Held by provider] insulin glargine 16 Units SubCUTAneous Nightly latanoprost 1 drop Both Eyes Nightly [Held by provider] lactobacillus 1 capsule Oral Daily with breakfast [Held by provider] gabapentin 200 mg Oral TID nafcillin 2,000 mg IntraVENous Q6H [Held by provider] aspirin 325 mg Oral Daily [Held by provider] calcium carbonate-vitamin D3 2 tablet Oral Daily [Held by provider] levothyroxine 100 mcg Oral Daily enoxaparin 40 mg SubCUTAneous Daily Social History: Social History Socioeconomic History Marital status: Spouse name: Not on file Number of children: Not on file Years of education: Not on file Highest education level: Not on file Occupational History Not on file Tobacco Use Smoking status: Former Smoker Years: 20.00 Types: Cigarettes Quit date: 10/06/1995 Years since quittin.8 Smokeless tobacco: Never Used Substance and Sexual Activity Alcohol use: No Drug use: No Sexual activity: Not on file Other Topics Concern Not on file Social History Narrative Not on file Social Determinants of Health Financial Resource Strain: Difficulty of Paying Living Expenses: Not on file Food Insecurity: Worried About Running Out of Food in the Last Year: Not on file Ran Out of Food in the Last Year: Not on file Transportation Needs: Lack of Transportation (Medical): Not on file Lack of Transportation (Non-Medical): Not on file Physical Activity: Days of Exercise per Week: Not on file Minutes of Exercise per Session: Not on file Stress: Feeling of Stress : Not on file Social Connections: Frequency of Communication with Friends and Family: Not on file Frequency of Social Gatherings with Friends and Family: Not on file Attends Mosque Services: Not on file Active Member of Clubs or Organizations: Not on file Attends Club or Organization Meetings: Not on file Marital Status: Not on file Intimate Partner Violence: Fear of Current or Ex-Partner: Not on file Emotionally Abused: Not on file Physically Abused: Not on file Sexually Abused: Not on file Housing Stability: Unable to Pay for Housing in the Last Year: Not on file Number of Places Lived in the Last Year: Not on file Unstable Housing in the Last Year: Not on file Family History: Family History Problem Relation Age of Onset Diabetes Mother Cancer Father Allergies: Moxifloxacin, Peg 3350-electrolytes, Tapentadol, Avelox [moxifloxacin hydrochloride], and Cephalexin Review of Systems: BC-Trach/vent Constitutional: No fevers or chills. No systemic complaints Head: No headaches Eyes: No double vision or blurry vision. No conjunctival inflammation. ENT: No sore throat or runny nose.. No hearing loss, tinnitus or vertigo. Difficulty swallowing. Cervical collar Cardiovascular: No chest pain or palpitations.No shortness of breath. No MARINELLI Lung: No shortness of breath or cough. No sputum production Abdomen: No nausea, vomiting, diarrhea, or abdominal pain.. No cramps. Genitourinary: No increased urinary frequency, or dysuria. No hematuria. No suprapubic or CVA pain Musculoskeletal: No muscle aches or pains. No joint effusions, swelling or deformities Hematologic: No bleeding or bruising. Neurologic: No headache, weakness, numbness, or tingling. Integument: No rash, no ulcers. Psychiatric: No depression. Endocrine: No polyuria, no polydipsia, no polyphagia. Physical Examination : Patient Vitals for the past 8 hrs: BP Temp Temp src Pulse Resp SpO2 08/01/21 0927 (!) 178/90 (!) 119 08/01/21 0823 (!) 115 27 100 % 08/01/21 0822 (!) 115 27 08/01/21 0821 (!) 114 25 08/01/21 0816 (!) 115 29 99 % 08/01/21 0800 (!) 175/85 98.8 F (37.1 C) Oral (!) 103 17 08/01/21 0600 (!) 114/54 99 F (37.2 C) Oral 98 15 100 % 08/01/21 0500 (!) 105 17 100 % 08/01/21 0400 (!) 151/69 99.2 F (37.3 C) Oral (!) 106 30 100 % 08/01/21 0300 97 16 100 % 08/01/21 0200 98.6 F (37 C) Oral (!) 102 21 100 % General Appearance: sedated on trach/vent Head: Normocephalic, no trauma Eyes: Pupils equal, round, reactive to light and accommodation; extraocular movements intact; sclera anicteric; conjunctivae pink. No embolic phenomena. ENT: Tracheostomy site Oropharynx clear, without erythema, exudate, or thrush. No tenderness of sinuses. Mouth/throat: mucosa pink and moist. No lesions. Dentition in good repair. Neck:Supple, without lymphadenopathy. Thyroid normal, No bruits.Cervical collar in place Pulmonary/Chest: Clear to auscultation, without wheezes, rales, or rhonchi. No dullness to percussion. Cardiovascular: Regular rate and rhythm without murmurs, rubs, or gallops. Abdomen: Soft, non tender. Bowel sounds normal. No organomegaly All four Extremities: No cyanosis, clubbing, edema, or effusions. Neurologic: BC-trach/vent Skin: Warm and dry with good turgor.No signs of peripheral arterial or venous insufficiency. No ulcerations. No open wounds. Medical Decision Making -Laboratory: I have independently reviewed/ordered the following labs: CBC with Differential: Recent Labs 07/31/21 0519 07/31/21 0519 07/31/21 1854 08/01/21 0452 WBC 14.0* -- -- 14.0* HGB 9.5* < > 9.2* 9.1* HCT 27.4* < > 27.4* 27.1* PLT 502* -- -- 490* LYMPHOPCT 21* -- -- 19* MONOPCT 7 -- -- 5 < > = values in this interval not displayed. BMP: Recent Labs 07/31/21 0519 08/01/21 0452 NA 140 138 K 3.3* 3.2* CL 106 105 CO2 20 20 BUN 14 15 CREATININE 0.78 0.72 MG 1.6 1.7 Hepatic Function Panel: No results for input(s): PROT, LABALBU, BILIDIR, IBILI, BILITOT, ALKPHOS, ALT, AST in the last 72 hours. No results for input(s): RPR in the last 72 hours. No results for input(s): HIV in the last 72 hours. No results for input(s): BC in the last 72 hours. Lab Results Component Value Date RBC 2.87 08/01/2021 WBC 14.0 08/01/2021 TURBIDITY Clear 07/18/2021 Lab Results Component Value Date CREATININE 0.72 08/01/2021 GLUCOSE 212 08/01/2021 GLUCOSE 229 06/04/2011 Medical Decision Making-Imaging: Narrative EXAMINATION: ONE XRAY VIEW OF THE CHEST 07/20/2021 6:47 am COMPARISON: July 19, 2021, chest exam HISTORY: ORDERING SYSTEM PROVIDED HISTORY: shortness of breath, TECHNOLOGIST PROVIDED HISTORY: shortness of breath, Reason for Exam: uprt port FINDINGS: Stable satisfactorily positioned endotracheal tube and right PICC line catheter Normal cardiac silhouette There are no significant pleural, parenchymal or mediastinal findings Degenerative changes of the thoracic spine/shoulders Impression Stable support lines No acute cardiopulmonary findings EXAM: XR CHEST PORTABLE HISTORY: Reason for exam:->cough COMPARISON: June 28, 2021. TECHNIQUE: A single AP portable view of the chest. FINDINGS: There is patchy airspace disease at the left infrahilar region medially. The heart size is at the upper limits of normal. There are mild to moderate degenerative changes of the thoracic spine and moderate degenerative changes of each shoulder, with a metallic anchor noted within the left humeral head. Impression Left infrahilar patchy airspace disease consistent with a left lower lobe pneumonia. Recommend follow-up imaging 4 weeks post treatment to document resolution. EXAMINATION: CT OF THE CERVICAL SPINE WITHOUT CONTRAST 07/10/2021 1:23 pm TECHNIQUE: CT of the cervical spine was performed without the administration of intravenous contrast. Multiplanar reformatted images are provided for review. Automated exposure control, iterative reconstruction, and/or weight based adjustment of the mA/kV was utilized to reduce the radiation dose to as low as reasonably achievable. COMPARISON: None. HISTORY: ORDERING SYSTEM PROVIDED HISTORY: sp c1/2 laminectomy TECHNOLOGIST PROVIDED HISTORY: sp c1/2 laminectomy Reason for Exam: SP C 1/2 LAMINECTOMY FINDINGS: Destructive changes consistent with the history of osteomyelitis in C2 is redemonstrated accounting for differences in technique relatively unchanged. There is soft tissue prominence, absence of contrast limits evaluation and the abscess described previously is not well redemonstrated. Posterior laminectomy at C1. There is mild loss of the remaining vertebral heights. No acute fracture or subluxation noted. There is severe loss of disc height at C6-7 and C7-T1 with disc osteophyte complex and moderate to severe canal and foraminal stenosis at C6-7. The soft tissues demonstrate postsurgical changes posteriorly, no gross abscess is identified with minimal amount of air noted within the posterior soft tissues the level of C1 and C2 probably postoperative in nature. Impression Postsurgical changes as detailed with laminectomy. There are destructive changes noted of C2 consistent with the history of osteomyelitis which appear relatively unchanged compared to the prior exam. The abscess described previously is not well redemonstrated. Follow-up is suggested with MRI as clinically warranted. Narrative EXAMINATION: CT OF THE CHEST WITHOUT CONTRAST 07/15/2021 4:41 pm TECHNIQUE: CT of the chest was performed without the administration of intravenous contrast. Multiplanar reformatted images are provided for review. Automated exposure control, iterative reconstruction, and/or weight based adjustment of the mA/kV was utilized to reduce the radiation dose to as low as reasonably achievable. COMPARISON: 06/29/2021 HISTORY: ORDERING SYSTEM PROVIDED HISTORY: r/o pneumonia TECHNOLOGIST PROVIDED HISTORY: r/o pneumonia Reason for Exam: r/o pneumonia FINDINGS: Mediastinum: There is mild calcified plaque throughout the aorta which is mildly dilated. There mild coronary artery calcifications which are unchanged. The pulmonary arteries unremarkable. There are small lymph nodes scattered in the mediastinum with the largest along the subcarinal region measuring 1.4 cm which is more prominent. There is a small pericardial effusion which is more prominent. There is a right PICC line in place with the tip in the distal superior vena cava. Lungs/pleura: The lungs are mildly hyperinflated there is some hazy subsegmental right basilar opacity posterior medially which is more prominent. There is some mild ground-glass opacities along the right lower lobe and lingula which are more apparent. No pulmonary nodule or mass is seen. There is a small left pleural effusion with subsegmental left basilar opacity posteriorly and associated air bronchograms which is more prominent. There is no endobronchial lesion. Upper Abdomen: The gallbladder has been removed. The adrenals are normal. The liver is mildly enlarged with cortical scarring around both kidneys. There is a 12 mm rounded hypodensity upper pole left kidney posteriorly and a 13 mm rounded hypodensity laterally along the left kidney which is are unchanged Soft Tissues/Bones: The bones are intact. No aggressive osseous lesion is seen. Impression Subsegmental atelectasis and consolidation left lower lobe which may represent pneumonia with associated small left pleural effusion which is more apparent. Recommend follow-up until resolution. Mild subsegmental infiltrate or atelectasis right lower lobe. Hazy ground-glass opacities along the right lower lobe and lingula which could represent early infiltrates from multisegmental bronchopneumonia and is more prominent. Small pericardial effusion which is more apparent Borderline enlarged mediastinal lymph nodes which are more prominent and are probably reactive in etiology. Recommend follow-up. Status post right PICC line placement in good position Mildly complex cystic appearing masses upper pole left kidney which are unchanged. Suggest ultrasound correlation. Medical Decision Dupvyd-Kpzidlbq-Ntooi: SARS-CoV-2, Rapid COVID-19, Rapid Collected: 07/13/21 [id number] Result status: Final Resulting lab: [facility] Reference range: Not Detected Value: DETECTED Abnormal Comment: Rapid NAAT: The specimen is POSITIVE for SARS-Cov-2, the novel coronavirus associated with COVID-19. This test has been authorized by the FDA under an Emergency Use Authorization (EUA) for use by authorized laboratories. The ID NOW COVID-19 assay is designed to detect the virus that causes COVID-19 in patients with signs and symptoms of infection who are suspected of COVID-19. An individual without symptoms of COVID-19 and who is not shedding SARS-CoV-2 virus would expect to have a negative (not detected) result in this assay. Fact sheet for Healthcare Providers: https://www.fda.gov/media/722973/downl oad Fact sheet for Patients: https://www.fda.gov/media/325014/downl oad Methodology: Isothermal Nucleic Acid Amplification Culture, Respiratory Order: [id number] Status: Final result Visible to patient: No (not released) Next appt: Today at 02:30 PM in Radiology (STV MRI RM 1 (1.5T)) Specimen Information: Sputum Aspirated 0 Result Notes Component 07/24/21 9186 Specimen Description .ASPIRATED SPUTUM Direct Exam < 10 EPITHELIAL CELLS/LPF Direct Exam >25 NEUTROPHILS/LPF Direct Exam MANY GRAM NEGATIVE RODS Abnormal Culture KLEBSIELLA AEROGENES HEAVY GROWTH Abnormal Culture NO NORMAL ROB Resulting Agency [facility] Susceptibility Klebsiella aerogenes (1) Antibiotic Interpretation Microscan Method Status aztreonam Sensitive <=1 BACTERIAL SUSCEPTIBILITY PANEL BECKY Final ceFAZolin Resistant BACTERIAL SUSCEPTIBILITY PANEL BECKY Final cefTRIAXone Sensitive <=1 BACTERIAL SUSCEPTIBILITY PANEL BECKY Final ciprofloxacin Sensitive <=0.25 BACTERIAL SUSCEPTIBILITY PANEL BECKY Final gentamicin Sensitive <=1 BACTERIAL SUSCEPTIBILITY PANEL BECKY Final tobramycin Sensitive <=1 BACTERIAL SUSCEPTIBILITY PANEL BECKY Final trimethoprim-sulfamethoxazole Sensitive <=20 BACTERIAL SUSCEPTIBILITY PANEL BECKY Final piperacillin-tazobactam Sensitive 16 BACTERIAL SUSCEPTIBILITY PANEL BECKY Final Medical Decision Making-Other: Note: Labs, medications, radiologic studies were reviewed with personal review of films Large amounts of data were reviewed Discussed with nursing Staff, development planner Infection Control and Prevention measures reviewed All prior entries were reviewed Administer medications as ordered Prognosis: Very Guarded Discharge planning reviewed Follow up as outpatient. Thank you for allowing us to participate in the care of this patient. Please call with questions. Jany Francis, GUEST RELATIONS COORDINATOR - LAND SURVEYING MANAGER ATTESTATION: I have discussed the case, including pertinent history and exam findings with the GUEST RELATIONS COORDINATOR. I have evaluated the History, physical findings and pictures of the patient and the coffey elements of the encounter have been performed by me. I have reviewed the laboratory data, other diagnostic studies and discussed them with the GUEST RELATIONS COORDINATOR. I have updated the medical record where necessary. I agree with the assessment, plan and orders as documented by the GUEST RELATIONS COORDINATOR. Seth Stokes MD. Pager: - Office: Critical Care Team - Daily Progress Note Date and time: 08/01/2021 8:07 AM Patient's name: Meg Georges Patient's account/billing number: [id number] Patient's Date of : 1965 Age: 56 y.o. Date of Admission: 07/14/2021 4:12 PM Length of stay during current admission: 18 Primary Care Physician: Neri Santa Sr, DO ICU Attending Physician: Dr. Willoughby Code Status: Full Code Reason for ICU admission: No chief complaint on file. SUBJECTIVE: OVERNIGHT EVENTS: S/p trach on 07/30. Still does not follow commands. Neurosurg following. Timing for surgical intervention pending. Will need to follow commands before getting felx ex F.A.S.T. M. H.U.G.S. B.I.D. Feeding Diet: Diet NPO ADULT TUBE FEEDING; Nasogastric; Peptide Based; Continuous; 25; Yes; 20; Q 4 hours; 45; 30; Q 4 hours Fluids: NS 10ml/hr Family: planning to call Analgesic: fentanyl Sedation: prop Thrombo-prophylaxis: [x] Enoxaparin, [] Unfract. Heparin Subcutaneously, [] EPC Cuffs Mobility: none Heads up: yes Ulcer prophylaxis: [] PPI Agent, [x] [id number], [] Sucralfate, [] Other: Glycemic control: medium dose insulin Spontaneous breathing trial: yes Bowel regimen/urine output: milk of mag Indwelling catheter/lines: yes De-escalation: yes AWAKE & FOLLOWING COMMANDS: [x] No [] Yes CURRENT VENTILATION STATUS: [x] Ventilator [] BIPAP [] Nasal Cannula [] Room Air IF INTUBATED, ET TUBE MARKING AT LOWER LIP: cms SEDATION: Fentanyl gtt [x] Propofol gtt [] Versed gtt [] Ativan gtt [] No Sedation DIARRHEA: [x] No [] Yes (C. Difficile status: [] positive [] negative [] pending) VASOPRESSORS: [x] No [] Yes If yes - [] Levophed [] Dopamine [] Vasopressin [] Dobutamine [] Phenylephrine [] Epinephrine CENTRAL LINES: [] No [x] Yes (Date of Insertion: 07/24/21 ) If yes - [] Right IJ [] Left IJ [x] Right Femoral [] Left Femoral [] Right Subclavian [] Left Subclavian MEADE'S CATHETER: [] No [x] Yes (Date of Insertion: present on admission ) UcritiRINE OUTPUT: [x] Good [] Low [] Anuric Review of Systems Unable to perform ROS: Intubated OBJECTIVE: VITAL SIGNS: BP (!) 114/54 Pulse 98 Temp 99 F (37.2 C) (Oral) Resp 15 Ht 5' 5 (1.651 m) Wt 133 lb 9.6 oz (60.6 kg) LMP 12/02/2011 SpO2 100% BMI 22.23 kg/m Tmax over 24 hours: Temp (24hrs), Av.7 F (37.1 C), Min:98.2 F (36.8 C), Max:99.2 F (37.3 C) Patient Vitals for the past 8 hrs: BP Temp Temp src Pulse Resp SpO2 Height Weight 08/01/21 0600 (!) 114/54 99 F (37.2 C) Oral 98 15 100 % 08/01/21 0500 (!) 105 17 100 % 08/01/21 0400 (!) 151/69 99.2 F (37.3 C) Oral (!) 106 30 100 % 08/01/21 0300 97 16 100 % 08/01/21 0200 98.6 F (37 C) Oral (!) 102 21 100 % 08/01/21 0112 5' 5 (1.651 m) 133 lb 9.6 oz (60.6 kg) 08/01/21 0100 94 15 100 % Intake/Output Summary (Last 24 hours) at 08/01/2021 0807 Last data filed at 08/01/2021 0703 Gross per 24 hour Intake 2227.27 ml Output Net 2227.27 ml Date 08/01/21 0000 - 08/01/21 2359 Shift 9645-0564 9642-2629 7536-7191 24 Hour Total INTAKE I.V.(mL/kg) 159.6(2.6) 159.6(2.6) NG/GT(mL/kg) 463(7.6) 463(7.6) IV Piggyback(mL/kg) 145.8(2.4) 145.8(2.4) Shift Total(mL/kg) 768.4(12.7) 768.4(12.7) OUTPUT Shift Total(mL/kg) Weight (kg) 60.6 60.6 60.6 60.6 Wt Readings from Last 3 Encounters: 08/01/21 133 lb 9.6 oz (60.6 kg) 07/13/21 140 lb (63.5 kg) 07/10/21 161 lb 11.2 oz (73.3 kg) Body mass index is 22.23 kg/m . PHYSICAL EXAM: General: No acute distress, intubated, no sedation HEENT: Normocephalic, atraumatic. Sclera white, pupils reactive. No cervical lymphadenopathy Cardiovascular: Tachycardia present, sinus rhythm on telemetry. Pulmonary: Mechanical breath sounds bilaterally Abdominal: Soft, nondistended, nontender. No palpable masses. Neuro: Reacts appropriately to external stimuli, wiggles toes and moves fingers on command Skin: No rashes lesions abrasions or bruises. MEDICATIONS: Scheduled Meds: insulin lispro 0-12 Units SubCUTAneous Q6H magnesium hydroxide 30 mL Per NG tube Daily labetalol 10 mg IntraVENous Once carvedilol 25 mg Oral BID WC fentanNYL 50 mcg IntraVENous Once fentanNYL 50 mcg IntraVENous Once famotidine (PEPCID) injection 20 mg IntraVENous BID valproate sodium (DEPACON) IVPB 250 mg IntraVENous Q12H [Held by provider] insulin glargine 16 Units SubCUTAneous Nightly latanoprost 1 drop Both Eyes Nightly [Held by provider] lactobacillus 1 capsule Oral Daily with breakfast [Held by provider] gabapentin 200 mg Oral TID nafcillin 2,000 mg IntraVENous Q6H [Held by provider] aspirin 325 mg Oral Daily [Held by provider] calcium carbonate-vitamin D3 2 tablet Oral Daily [Held by provider] levothyroxine 100 mcg Oral Daily enoxaparin 40 mg SubCUTAneous Daily Continuous Infusions: sodium chloride 10 mL/hr at 08/01/21702 sodium chloride propofol 15 mcg/kg/min (08/01/21702) fentaNYL 50 mcg/mL 100 mcg/hr (08/01/21702) dextrose PRN Meds: oxyCODONE, 5 mg, Q4H PRN bisacodyl, 10 mg, Daily PRN sodium chloride, , PRN LORazepam, 2 mg, Q4H PRN sodium chloride flush, 10 mL, PRN potassium chloride, 40 mEq, PRN Or potassium alternative oral replacement, 40 mEq, PRN Or potassium chloride, 10 mEq, PRN fentanNYL, 25 mcg, Q1H PRN sodium chloride flush, 5-40 mL, PRN ondansetron, 4 mg, Q8H PRN Or ondansetron, 4 mg, Q6H PRN acetaminophen, 650 mg, Q6H PRN Or acetaminophen, 650 mg, Q6H PRN dextromethorphan-guaiFENesin, 5 mL, Q4H PRN dextrose bolus, 125 mL, PRN Or dextrose bolus, 250 mL, PRN glucagon (rDNA), 1 mg, PRN dextrose, 100 mL/hr, PRN magnesium sulfate, 1,000 mg, PRN SUPPORT DEVICES: [x] Ventilator [] BIPAP [] Nasal Cannula [] Room Air VENT SETTINGS (Comprehensive) (if applicable): PRVC mode, FiO2 30%, PEEP 5, Respiratory Rate 15, Tidal Volume 450 Vent Information Ventilator ID: [id number] Vent Mode: PRVC Ventilator Discontinue: (S) Yes Additional Respiratory Assessments Heart Rate: 98 Resp: 15 SpO2: 100 % End Tidal CO2: 32 (%) Position: Semi-Simon's Humidification Source: [facility] Lab Results Component Value Date PHART 7.406 07/06/2021 [id number] 34.8 07/06/2021 PO2ART 279.0 07/06/2021 [id number] 21.4 07/06/2021 [id number] 99.4 07/06/2021 FIO2 30.0 07/30/2021 Lactic Acid: Lab Results Component Value Date LACTA 1.0 07/13/2021 LACTA 1.6 06/28/2021 DATA: Complete Blood Count: Recent Labs 07/30/2142307/30/21171807/31/2151807/31/21185308/01/21451 WBC 14.2* -- 14.0* -- 14.0* HGB 9.3* < > 9.5* 9.2* 9.1* MCV 91.5 -- 91.6 -- 94.4 PLT 491* -- 502* -- 490* RBC 2.95* -- 2.99* -- 2.87* HCT 27.0* < > 27.4* 27.4* 27.1* MCH 31.5 -- 31.8 -- 31.7 MCHC 34.4 -- 34.7 -- 33.6 RDW 17.7* -- 18.4* -- 18.8* MPV 8.8 -- 8.7 -- 8.7 < > = values in this interval not displayed. PT/INR: Lab Results Component Value Date PROTIME 13.1 07/25/2021 INR 1.2 07/25/2021 PTT: Lab Results Component Value Date APTT 23.9 06/28/2021 Basal Metabolic Profile: Recent Labs 07/30/2142307/31/2151808/01/21451 NA 137 140 138 K 3.8 3.3* 3.2* BUN 14 14 15 CREATININE 0.70 0.78 0.72 CL 105 106 105 CO2 22 20 20 Magnesium: Lab Results Component Value Date MG 1.7 08/01/2021 MG 1.6 07/31/2021 MG 1.8 07/27/2021 Phosphorus: Lab Results Component Value Date PHOS 1.9 07/17/2021 S. Calcium: Recent Labs 08/01/21451 CALCIUM 7.9* S. Ionized Calcium:No results for input(s): IONCA in the last 72 hours. Urinalysis: Lab Results Component Value Date NITRU NEGATIVE 07/18/2021 COLORU Yellow 07/18/2021 PHUR 8.5 07/18/2021 WBCUA 2 TO 5 07/18/2021 RBCUA 20 TO 50 07/18/2021 BACTERIA MANY 07/07/2021 SPECGRAV 1.010 07/18/2021 LEUKOCYTESUR NEGATIVE 07/18/2021 UROBILINOGEN Normal 07/18/2021 BILIRUBINUR NEGATIVE 07/18/2021 GLUCOSEU NEGATIVE 07/18/2021 KETUA SMALL 07/18/2021 CARDIAC ENZYMES: No results for input(s): CKMB, CKMBINDEX, TROPONINI in the last 72 hours. Invalid input(s): CKTOTAL;3 BNP: No results for input(s): BNP in the last 72 hours. LFTS No results for input(s): ALKPHOS, ALT, AST, BILITOT, BILIDIR, LABALBU in the last 72 hours. AMYLASE/LIPASE/AMMONIA No results for input(s): AMYLASE, LIPASE, AMMONIA in the last 72 hours. Last 3 Blood Glucose: Recent Labs 07/30/21 0424 07/31/21 0519 08/01/21451 GLUCOSE 276* 209* 212* HgBA1c: Lab Results Component Value Date LABA1C 9.4 06/28/2021 TSH: Lab Results Component Value Date TSH 2.06 07/24/2021 ANEMIA STUDIES No results for input(s): LABIRON, TIBC, FERRITIN, [id number], FOLATE, OCCULTBLD in the last 72 hours. Cultures during this admission: Blood cultures: [] None drawn [x] Negative [] Positive (Details: ) Urine Culture: [x] None drawn [] Negative [] Positive (Details: ) Sputum Culture: [] None drawn [] Negative [x] Positive (Details: 07/25/21 gram- rods) Endotracheal aspirate: [x] None drawn [] Negative [] Positive (Details: ) Chest Xray (08/01/2021): ASSESSMENT: 1. Spinal epidural abscess 2. Pneumonia 3. Odontoid fracture 4. Anemia 5. Psoas hematoma 6. Sepsis secondary to MSSA PLAN: Neurologic: Neuro checks per protocol Not on sedation as of 07/26/2021 Responding to commands EEG showed diffuse slowing Spinal epidural abscess MSSA treated with nafcillin every 6 hours Plan for atlantoaxial fixation versus possible occipital cervical fixation early next week. Cardiovascular: Hemodynamically stability improving: weaned norepinephrine MAP goal 65 Tachycardic in 100s Pulmonary: Maintain oxygen sats >92% On ventilator S/p tracheostomy on 07/30 Lower lobe bilateral pneumonia, worsening; no pulmonary embolism Continue Levaquin GI/Nutrition Ulcer Prophylaxis: famotidine 20mg bid Diet: NPO Will restart tube feeds Renal/Fluid/Electrolyte UOP: 1.2 cc/kg/hr ID WBC: Lab Results Component Value WBC 13.6 Spinal epidural abscess Pneumonia Antimicrobials: nafcillin for MSSA septicemia, levofloxacin started for sputum culture growing gram- rods and pneumonia on CT. Hematology: ENT wants hgb above 9. 1 U prbc given ON. Currently stable Endocrine: glucose 200s this morning. Will switch to medium dose SSI MSK: -Psoas Hematoma-likely source of drop in hemoglobin, general surgery consulted, no acute intervention indicated. DVT Prophylaxis hgb stable no surgical intervention. Discharge Needs: pending clinical course CODE STATUS: Full Code Keri Hart MD Department of Internal Medicine/ Critical care [facility]) 08/01/2021, 8:07 AM Associated attestation - Aniket Padron MD - 08/01/2021 7:15 PM EDT Attending Physician Statement I have discussed the case of Meg Georges, including pertinent history and exam findings with the resident/fellow/medical student/SCREED OPERATOR/PA. I have seen and examined the patient and the coffey elements of the encounter have been performed by me. I agree with the assessment, plan and orders as documented by the resident/fellow/medical student/SCREED OPERATOR/PA With changes made to the note as needed. Pt was seen during rounds. Review of Systems: In addition to the pertinent positives and negatives as stated within HPI and the review of systems as documented in their notes, all other systems were reviewed when able to and are reported negative. On the ventilator on 30% oxygen Blood sugars are acceptable Changed to Precedex Supplement potassium for hypokalemia Anemia stable Leukocytosis stable Tolerating tube feeding On Lovenox and H2 blockers Total critical care time caring for this patient with life threatening, unstable organ failure, including direct patient contact, management of life support systems, review of data including imaging and labs, discussions with other team members and physicians at least 30 Min so far today, excluding procedures. Aniket Padron MD 08/01/2021 7:14 PM Images from the original note were not included. [facility] -Progress Note Today's Date and Time: 07/31/2021, 2:51 PM Impression : Covid 19 Covid test: 07-13-21: Positive Prior MSSA septicemia. Bacteremia persistent from 06-28-21 through 07-04-21 CIDP chronic IVIG therapy - immunosuppressed Ulcer on the left foot Allergy to keflex and avelox - tolerates PNC Prior Erosive changes at craniocervical junction by CT cervical spine 06-29-21 S/P cervical spine surgery on 07-06-21 for relief of pressure from an epidural plegmon, causing compression of cervical medullary junction. Phlegmon found, no abscess. Cultures no growth. Bone described as soft raising concern for osteomyelitis. Hx of Hypothyroidism Diabetes mellitus type 2 Essential hypertension Acute respiratory failure 07/24/21 Recommendations: Covid treatment: Bebtelovimab infusion received 07-15-21 Decadron: Not indicated Remdesivir not indicated Actemra: not indicated Antimicrobial treatment: Continue nafcillin. Tentative Stop date 08-15-21 (6 weeks Rx) Concern for nafcillin induced hypokalemia-Improving KCl replacement for hypokalemia Nausea and vomiting with Cefazolin Sputum culture ordered 07/24/21-Klebsiella heavy growth Levaquin IV 750 mg daily x 7 days initiated 07/25/21. Stop date 08-01-21 Medical Decision Making/Summary/Discussion:07/31/2021 Patient intubated 07/24/21 for acute respiratory failure. MRI Brain and Cervical spine 07/26/21: Findings suggestive of osteomyelitis at the skull base including clivus, occipital condyles and C1 and C2 with associated pathologic fracture of C2. There is a 4.1 cm abscess collection within the posterior paraspinal soft tissues at the level of the skull base. Improved compression of cervical medullary junction from prior MRI Trach placed 07/30/21 per ENT Infection Control Recommendations [place] Precautions Isolate for Covid until 07-23-21 Antimicrobial Stewardship Recommendations Simplification of therapy Targeted therapy Coordination of Outpatient Care: Estimated Length of IV antimicrobials: 08-15-21 Patient will need Midline Catheter Insertion: no Patient will need PICC line Insertion:no Patient will need: Home IV , Infusion Center, SNF, LTAC: TBD Patient will need outpatient wound care:No Chief complaint/reason for consultation: Covid 19 MSSA septicemia Osteomyelitis cervical spine History of Present Illness: Meg Georges is a 56 y.o.-year-old female who was initially admitted on 07/14/2021. Patient seen at the request of . INITIAL HISTORY: Patient known to our service because of prior admission on 06-28-21 when she presented with altered mentation and was found to have a MSSA septicemia (06-28-21). She was also found to have erosive changes at the craniocervical junction which may be related to arthritis or osteomyelitis by CT cervical spine of 06-29-21. 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 Patient received treatment with Nafcillin. She also underwent cervical spine surgery on 07-06-21 for relief of pressure from an epidural plegmon/abscess, causing compression of cervical medullary junction. Soft bone and phlegmon were found but no definite abscess. Cultures of tissue yielded no growth. Patient was released to receive treatment with Nafcillin through 08-20-21. Patient was transferred back to [facility] on 07-14-21 because of a positive Covid test obtained on 07-13-21 Speech therapy consulted for swallow evaluation. She had aspiration of pudding on 07-19-21 CXR 07-20-21: No acute cardiopulmonary findings Speech therapy suggested NPO with tube feeds Impression CT chest 07/24/21 Consolidation in the lower lobes bilaterally that is worse on the left compared to the right consistent with pneumonia. No acute or chronic pulmonary Impression CT head 07/24/21 No acute intracranial abnormality. Chronic sinusitis most pronounced in the ethmoid air cells and left maxillary sinus. CURRENT EVALUATION : 07/31/2021 Patient evaluated in ICU Afebrile VS stable The patient is on the ventilator via trach. FiO2: 30% SpO2: 100-->99 -->100% She underwent a trach placement per ENT on 07/30/21. She appears comfortable upon evaluation. She is not following commands Cervical collar in place. MRI with 4.1 cm abscess collection within the posterior paraspinal soft tissues at the level of the base of the skull. Plans for atlantoaxial fixation versus possible occipital cervical fixation tentatively this week. Surgical intervention at the discretion of Neurosurgery. Very difficult clinical situation. Klebsiella on sputum from 07/24/21 On Levaquin until 08-01-21 Discussed with RN Labs, X rays reviewed: 07/31/2021 BUN: 21-->17-->7-->11-->14 Cr: 0.70-->0.75-->0.71-->0.70 K: 3.2-->4.3-->3.2-->3.7-->308 WBC: 21.6-->13.6-->11.8-->13.4-->10.8-->14. 2-->14.0 Hb:5.8-->7.4-->8.1-->8.5-->7.4-->9.3-- >9.5 Plat: 521-->435-->503-->500-->491-->502 CRP: 183.3 SARS Co V2: positive 07-13-21 Cultures: Urine: Blood: 06-28-21: MSSA 06-30-21: MSSA 07-01-21: MSSA 07-02-21: MSSA 07-03-21: MSSA 07-04-21: MSSA 07-07-21: No growth 07-08-21: No growth 07-13-21: No growth 07/14/21: No growth 07/17/21: No growth 07-22-21: No growth X 2 Sputum : 07/24/21: Klebsiella Aerogenes Wound: Cervical tissue neck: 07-06-21: No growth Discussed with patient, RN, KRISTEL 07-26-21 CT Chest 07/24/21 07/15/21 CXR 07/24/21 07-13-21: Impression MRI Brain and cervical spine 07/26/21 Cervical spine MRI: 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 Pathologic fracture of dense process of C2 is associated with its retroflexion and mild narrowing at the craniocervical junction. Mild degenerative findings of cervical spine as described. Brain MRI: There is no acute infarction, intracranial hemorrhage, or intracranial mass lesion. Mild chronic microangiopathic ischemic disease. Mild generalized volume loss. Severe mucosal thickening of frontal ethmoidal maxillary and sphenoid sinuses. Moderate mucosal thickening of mastoid air cells. Impression CT chest/abd/pelvis 07/15/21 Subsegmental atelectasis and consolidation left lower lobe which may represent pneumonia with associated small left pleural effusion which is more apparent. Recommend follow-up until resolution. Mild subsegmental infiltrate or atelectasis right lower lobe. Hazy ground-glass opacities along the right lower lobe and lingula which could represent early infiltrates from multisegmental bronchopneumonia and is more prominent. Small pericardial effusion which is more apparent Borderline enlarged mediastinal lymph nodes which are more prominent and are probably reactive in etiology. Recommend follow-up. I have personally reviewed the past medical history, past surgical history, medications, social history, and family history, and I have updated the database accordingly. 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 LEFT C2 RHIZOTOMY, EXPLORATION OF EPIDURAL PHLEGMON performed by Alisia Crump DO at [facility] OR CHOLECYSTECTOMY EYE SURGERY [address] 250 shunt for open angle glaucoma. MRI compatible- device is all silicone LAMINECTOMY 07/06/2021 Posterior C1, LEFT C2 RHIZOTOMY, EXPLORATION OF EPIDURAL PHLEGMON PICC INSERTION VASCULAR ACCESS TEAM 07/10/2021 SHOULDER SURGERY right TRACHEOSTOMY 07/30/2021 TRACHEOSTOMY N/A 07/30/2021 TRACHEOTOMY performed by Erica Santiago MD at [facility] OR UPPER GASTROINTESTINAL ENDOSCOPY N/A 07/02/2021 EGD ESOPHAGOGASTRODUODENOSCOPY performed by Hari Wagner MD at [facility] Endoscopy Medications: insulin lispro 0-12 Units SubCUTAneous Q6H magnesium hydroxide 30 mL Per NG tube Daily labetalol 10 mg IntraVENous Once carvedilol 25 mg Oral BID WC fentanNYL 50 mcg IntraVENous Once fentanNYL 50 mcg IntraVENous Once famotidine (PEPCID) injection 20 mg IntraVENous BID valproate sodium (DEPACON) IVPB 250 mg IntraVENous Q12H [Held by provider] insulin glargine 16 Units SubCUTAneous Nightly latanoprost 1 drop Both Eyes Nightly [Held by provider] lactobacillus 1 capsule Oral Daily with breakfast [Held by provider] gabapentin 200 mg Oral TID nafcillin 2,000 mg IntraVENous Q6H [Held by provider] aspirin 325 mg Oral Daily [Held by provider] calcium carbonate-vitamin D3 2 tablet Oral Daily [Held by provider] levothyroxine 100 mcg Oral Daily enoxaparin 40 mg SubCUTAneous Daily Social History: Social History Socioeconomic History Marital status: Spouse name: Not on file Number of children: Not on file Years of education: Not on file Highest education level: Not on file Occupational History Not on file Tobacco Use Smoking status: Former Smoker Years: 20.00 Types: Cigarettes Quit date: 10/06/1995 Years since quittin.8 Smokeless tobacco: Never Used Substance and Sexual Activity Alcohol use: No Drug use: No Sexual activity: Not on file Other Topics Concern Not on file Social History Narrative Not on file Social Determinants of Health Financial Resource Strain: Difficulty of Paying Living Expenses: Not on file Food Insecurity: Worried About Running Out of Food in the Last Year: Not on file Ran Out of Food in the Last Year: Not on file Transportation Needs: Lack of Transportation (Medical): Not on file Lack of Transportation (Non-Medical): Not on file Physical Activity: Days of Exercise per Week: Not on file Minutes of Exercise per Session: Not on file Stress: Feeling of Stress : Not on file Social Connections: Frequency of Communication with Friends and Family: Not on file Frequency of Social Gatherings with Friends and Family: Not on file Attends Mosque Services: Not on file Active Member of Clubs or Organizations: Not on file Attends Club or Organization Meetings: Not on file Marital Status: Not on file Intimate Partner Violence: Fear of Current or Ex-Partner: Not on file Emotionally Abused: Not on file Physically Abused: Not on file Sexually Abused: Not on file Housing Stability: Unable to Pay for Housing in the Last Year: Not on file Number of Places Lived in the Last Year: Not on file Unstable Housing in the Last Year: Not on file Family History: Family History Problem Relation Age of Onset Diabetes Mother Cancer Father Allergies: Moxifloxacin, Peg 3350-electrolytes, Tapentadol, Avelox [moxifloxacin hydrochloride], and Cephalexin Review of Systems: BC-Trach/vent Constitutional: No fevers or chills. No systemic complaints Head: No headaches Eyes: No double vision or blurry vision. No conjunctival inflammation. ENT: No sore throat or runny nose.. No hearing loss, tinnitus or vertigo. Difficulty swallowing. Cervical collar Cardiovascular: No chest pain or palpitations.No shortness of breath. No MARINELLI Lung: No shortness of breath or cough. No sputum production Abdomen: No nausea, vomiting, diarrhea, or abdominal pain.. No cramps. Genitourinary: No increased urinary frequency, or dysuria. No hematuria. No suprapubic or CVA pain Musculoskeletal: No muscle aches or pains. No joint effusions, swelling or deformities Hematologic: No bleeding or bruising. Neurologic: No headache, weakness, numbness, or tingling. Integument: No rash, no ulcers. Psychiatric: No depression. Endocrine: No polyuria, no polydipsia, no polyphagia. Physical Examination : Patient Vitals for the past 8 hrs: Pulse Resp SpO2 07/31/21 1134 95 15 98 % 07/31/21 0900 (!) 106 24 99 % 07/31/21 0819 (!) 108 23 95 % 07/31/21 0806 97 15 98 % 07/31/21 0800 (!) 102 21 98 % General Appearance: sedated on trach/vent Head: Normocephalic, no trauma Eyes: Pupils equal, round, reactive to light and accommodation; extraocular movements intact; sclera anicteric; conjunctivae pink. No embolic phenomena. ENT: Tracheostomy site Oropharynx clear, without erythema, exudate, or thrush. No tenderness of sinuses. Mouth/throat: mucosa pink and moist. No lesions. Dentition in good repair. Neck:Supple, without lymphadenopathy. Thyroid normal, No bruits.Cervical collar in place Pulmonary/Chest: Clear to auscultation, without wheezes, rales, or rhonchi. No dullness to percussion. Cardiovascular: Regular rate and rhythm without murmurs, rubs, or gallops. Abdomen: Soft, non tender. Bowel sounds normal. No organomegaly All four Extremities: No cyanosis, clubbing, edema, or effusions. Neurologic: BC-trach/vent Skin: Warm and dry with good turgor.No signs of peripheral arterial or venous insufficiency. No ulcerations. No open wounds. Medical Decision Making -Laboratory: I have independently reviewed/ordered the following labs: CBC with Differential: Recent Labs 07/30/21 04207/30/21 0424 07/30/21 1719 07/31/21 0519 WBC 14.2* -- -- 14.0* HGB 9.3* < > 9.6* 9.5* HCT 27.0* < > 29.5* 27.4* PLT 491* -- -- 502* LYMPHOPCT 26 -- -- 21* MONOPCT 4 -- -- 7 < > = values in this interval not displayed. BMP: Recent Labs 07/30/21 04207/31/21 0519 NA 137 140 K 3.8 3.3* CL 105 106 CO2 22 20 BUN 14 14 CREATININE 0.70 0.78 MG -- 1.6 Hepatic Function Panel: No results for input(s): PROT, LABALBU, BILIDIR, IBILI, BILITOT, ALKPHOS, ALT, AST in the last 72 hours. No results for input(s): RPR in the last 72 hours. No results for input(s): HIV in the last 72 hours. No results for input(s): BC in the last 72 hours. Lab Results Component Value Date RBC 2.99 07/31/2021 WBC 14.0 07/31/2021 TURBIDITY Clear 07/18/2021 Lab Results Component Value Date CREATININE 0.78 07/31/2021 GLUCOSE 209 07/31/2021 GLUCOSE 229 06/04/2011 Medical Decision Making-Imaging: Narrative EXAMINATION: ONE XRAY VIEW OF THE CHEST 07/20/2021 6:47 am COMPARISON: July 19, 2021, chest exam HISTORY: ORDERING SYSTEM PROVIDED HISTORY: shortness of breath, TECHNOLOGIST PROVIDED HISTORY: shortness of breath, Reason for Exam: uprt port FINDINGS: Stable satisfactorily positioned endotracheal tube and right PICC line catheter Normal cardiac silhouette There are no significant pleural, parenchymal or mediastinal findings Degenerative changes of the thoracic spine/shoulders Impression Stable support lines No acute cardiopulmonary findings EXAM: XR CHEST PORTABLE HISTORY: Reason for exam:->cough COMPARISON: June 28, 2021. TECHNIQUE: A single AP portable view of the chest. FINDINGS: There is patchy airspace disease at the left infrahilar region medially. The heart size is at the upper limits of normal. There are mild to moderate degenerative changes of the thoracic spine and moderate degenerative changes of each shoulder, with a metallic anchor noted within the left humeral head. Impression Left infrahilar patchy airspace disease consistent with a left lower lobe pneumonia. Recommend follow-up imaging 4 weeks post treatment to document resolution. EXAMINATION: CT OF THE CERVICAL SPINE WITHOUT CONTRAST 07/10/2021 1:23 pm TECHNIQUE: CT of the cervical spine was performed without the administration of intravenous contrast. Multiplanar reformatted images are provided for review. Automated exposure control, iterative reconstruction, and/or weight based adjustment of the mA/kV was utilized to reduce the radiation dose to as low as reasonably achievable. COMPARISON: None. HISTORY: ORDERING SYSTEM PROVIDED HISTORY: sp c1/2 laminectomy TECHNOLOGIST PROVIDED HISTORY: sp c1/2 laminectomy Reason for Exam: SP C 1/2 LAMINECTOMY FINDINGS: Destructive changes consistent with the history of osteomyelitis in C2 is redemonstrated accounting for differences in technique relatively unchanged. There is soft tissue prominence, absence of contrast limits evaluation and the abscess described previously is not well redemonstrated. Posterior laminectomy at C1. There is mild loss of the remaining vertebral heights. No acute fracture or subluxation noted. There is severe loss of disc height at C6-7 and C7-T1 with disc osteophyte complex and moderate to severe canal and foraminal stenosis at C6-7. The soft tissues demonstrate postsurgical changes posteriorly, no gross abscess is identified with minimal amount of air noted within the posterior soft tissues the level of C1 and C2 probably postoperative in nature. Impression Postsurgical changes as detailed with laminectomy. There are destructive changes noted of C2 consistent with the history of osteomyelitis which appear relatively unchanged compared to the prior exam. The abscess described previously is not well redemonstrated. Follow-up is suggested with MRI as clinically warranted. Narrative EXAMINATION: CT OF THE CHEST WITHOUT CONTRAST 07/15/2021 4:41 pm TECHNIQUE: CT of the chest was performed without the administration of intravenous contrast. Multiplanar reformatted images are provided for review. Automated exposure control, iterative reconstruction, and/or weight based adjustment of the mA/kV was utilized to reduce the radiation dose to as low as reasonably achievable. COMPARISON: 06/29/2021 HISTORY: ORDERING SYSTEM PROVIDED HISTORY: r/o pneumonia TECHNOLOGIST PROVIDED HISTORY: r/o pneumonia Reason for Exam: r/o pneumonia FINDINGS: Mediastinum: There is mild calcified plaque throughout the aorta which is mildly dilated. There mild coronary artery calcifications which are unchanged. The pulmonary arteries unremarkable. There are small lymph nodes scattered in the mediastinum with the largest along the subcarinal region measuring 1.4 cm which is more prominent. There is a small pericardial effusion which is more prominent. There is a right PICC line in place with the tip in the distal superior vena cava. Lungs/pleura: The lungs are mildly hyperinflated there is some hazy subsegmental right basilar opacity posterior medially which is more prominent. There is some mild ground-glass opacities along the right lower lobe and lingula which are more apparent. No pulmonary nodule or mass is seen. There is a small left pleural effusion with subsegmental left basilar opacity posteriorly and associated air bronchograms which is more prominent. There is no endobronchial lesion. Upper Abdomen: The gallbladder has been removed. The adrenals are normal. The liver is mildly enlarged with cortical scarring around both kidneys. There is a 12 mm rounded hypodensity upper pole left kidney posteriorly and a 13 mm rounded hypodensity laterally along the left kidney which is are unchanged Soft Tissues/Bones: The bones are intact. No aggressive osseous lesion is seen. Impression Subsegmental atelectasis and consolidation left lower lobe which may represent pneumonia with associated small left pleural effusion which is more apparent. Recommend follow-up until resolution. Mild subsegmental infiltrate or atelectasis right lower lobe. Hazy ground-glass opacities along the right lower lobe and lingula which could represent early infiltrates from multisegmental bronchopneumonia and is more prominent. Small pericardial effusion which is more apparent Borderline enlarged mediastinal lymph nodes which are more prominent and are probably reactive in etiology. Recommend follow-up. Status post right PICC line placement in good position Mildly complex cystic appearing masses upper pole left kidney which are unchanged. Suggest ultrasound correlation. Medical Decision Fhppon-Belkzzpt-Tlnwg: SARS-CoV-2, Rapid COVID-19, Rapid Collected: 07/13/21 6599 Result status: Final Resulting lab: [email or web address] Reference range: Not Detected Value: DETECTED Abnormal Comment: Rapid NAAT: The specimen is POSITIVE for SARS-Cov-2, the novel coronavirus associated with COVID-19. This test has been authorized by the FDA under an Emergency Use Authorization (EUA) for use by authorized laboratories. The ID NOW COVID-19 assay is designed to detect the virus that causes COVID-19 in patients with signs and symptoms of infection who are suspected of COVID-19. An individual without symptoms of COVID-19 and who is not shedding SARS-CoV-2 virus would expect to have a negative (not detected) result in this assay. Fact sheet for Healthcare Providers: https://www.fda.gov/media/148772/downl oad Fact sheet for Patients: https://www.fda.gov/media/766286/downl oad Methodology: Isothermal Nucleic Acid Amplification Culture, Respiratory Order: [id number] Status: Final result Visible to patient: No (not released) Next appt: Today at 02:30 PM in Radiology (STV MRI RM 1 (1.5T)) Specimen Information: Sputum Aspirated 0 Result Notes Component 07/24/21 8931 Specimen Description .ASPIRATED SPUTUM Direct Exam < 10 EPITHELIAL CELLS/LPF Direct Exam >25 NEUTROPHILS/LPF Direct Exam MANY GRAM NEGATIVE RODS Abnormal Culture KLEBSIELLA AEROGENES HEAVY GROWTH Abnormal Culture NO NORMAL ROB Resulting Agency [facility] Susceptibility Klebsiella aerogenes (1) Antibiotic Interpretation Microscan Method Status aztreonam Sensitive <=1 BACTERIAL SUSCEPTIBILITY PANEL BECKY Final ceFAZolin Resistant BACTERIAL SUSCEPTIBILITY PANEL BECKY Final cefTRIAXone Sensitive <=1 BACTERIAL SUSCEPTIBILITY PANEL BECKY Final ciprofloxacin Sensitive <=0.25 BACTERIAL SUSCEPTIBILITY PANEL BECKY Final gentamicin Sensitive <=1 BACTERIAL SUSCEPTIBILITY PANEL BCEKY Final tobramycin Sensitive <=1 BACTERIAL SUSCEPTIBILITY PANEL BECKY Final trimethoprim-sulfamethoxazole Sensitive <=20 BACTERIAL SUSCEPTIBILITY PANEL BECKY Final piperacillin-tazobactam Sensitive 16 BACTERIAL SUSCEPTIBILITY PANEL BECKY Final Medical Decision Making-Other: Note: Labs, medications, radiologic studies were reviewed with personal review of films Large amounts of data were reviewed Discussed with nursing Staff, development planner Infection Control and Prevention measures reviewed All prior entries were reviewed Administer medications as ordered Prognosis: Very Guarded Discharge planning reviewed Follow up as outpatient. Thank you for allowing us to participate in the care of this patient. Please call with questions. Jany Francis, GUEST RELATIONS COORDINATOR - LAND SURVEYING MANAGER ATTESTATION: I have discussed the case, including pertinent history and exam findings with the GUEST RELATIONS COORDINATOR. I have evaluated the History, physical findings and pictures of the patient and the coffey elements of the encounter have been performed by me. I have reviewed the laboratory data, other diagnostic studies and discussed them with the GUEST RELATIONS COORDINATOR. I have updated the medical record where necessary. I agree with the assessment, plan and orders as documented by the GUEST RELATIONS COORDINATOR. Seth Stokes MD. Pager: - Office: Images from the original note were not included. Occupational Therapy [facility] Occupational Therapy Not Seen Note DATE: 07/31/2021 NAME: Meg Georges : 1965 Patient not seen this date for Occupational Therapy due to: Patient is not appropriate for active participation in OT evaluation/treatment at this time d/t intubation, sedation and not following commands. Next Scheduled Treatment: 08/02/2021 ENT/OTOLARYNGOLOGY PROGRESS NOTE REASON FOR CARE: s/p Tracheostomy placement HISTORY OF PRESENT ILLNESS: Meg Georges is a 56 y.o. who is being seen for follow-up of tracheostomy placement on 07/30/21. Medications: Current Facility-Administered Medications Medication Dose Route Frequency Provider Last Rate Last Admin insulin lispro (HUMALOG) injection vial 0-12 Units 0-12 Units SubCUTAneous Q6H Keri Hart MD 2 Units at 07/31/21 0523 oxyCODONE (ROXICODONE) immediate release tablet 5 mg 5 mg Oral Q4H PRN Keri Hart MD magnesium hydroxide (MILK OF MAGNESIA) 400 MG/5ML suspension 30 mL 30 mL Per NG tube Daily Adilson Coyle MD 30 mL at 07/29/21 1013 bisacodyl (DULCOLAX) suppository 10 mg 10 mg Rectal Daily PRN Adilson Coyle MD 0.9 % sodium chloride infusion IntraVENous Continuous Adilson Coyle MD 10 mL/hr at 07/31/21 0724 Rate Verify at 07/31/21 0724 0.9 % sodium chloride infusion IntraVENous PRN Adilson Coyle MD LORazepam (ATIVAN) injection 2 mg 2 mg IntraVENous Q4H PRN Adilson Coyle MD 2 mg at 07/28/21 0206 labetalol (NORMODYNE;TRANDATE) injection 10 mg 10 mg IntraVENous Once Adilson Coyle MD carvedilol (COREG) tablet 25 mg 25 mg Oral BID WC Adilson Coyle MD 25 mg at 07/30/21 1745 fentaNYL (SUBLIMAZE) injection 50 mcg 50 mcg IntraVENous Once Adilson Coyle MD fentaNYL (SUBLIMAZE) injection 50 mcg 50 mcg IntraVENous Once Adilson Coyle MD famotidine (PEPCID) 20 mg in sodium chloride (PF) 10 mL injection 20 mg IntraVENous BID Adilson Coyle MD 20 mg at 07/30/21 1956 propofol injection 5-50 mcg/kg/min IntraVENous Continuous Adilson Coyle MD 5.1 mL/hr at 07/31/21 0724 15 mcg/kg/min at 07/31/21 0724 sodium chloride flush 0.9 % inject [facility] Work Phone: 07-19-2021 Hospital Discharge instructions Anna Veliz RN - 07/19/2021 1:04 PM EDT Images from the original note were not included. Continuity of Care Form Patient Name: Meg Georges : 1965 Admit date: 07/14/2021 Discharge date: 08/10/2021 Code Status Order: Full Code Advance Directives: Admitting Physician: Aniket Padron MD PCP: Neri Santa Sr, DO Discharging Nurse: Discharging Hospital Unit/Room#: 3024/3024-01 Discharging Unit Emergency Contact: Extended Emergency Contact Information Primary Emergency Contact: Hina Thomas [facility] [place] Relation: Brother/Sister Past Surgical History: Past Surgical History: Procedure Laterality Date ACHILLES TENDON SURGERY left BACK SURGERY L 4 and 5 1995, 1996 CERVICAL FUSION N/A 07/06/2021 POSTERIOR CERVICAL C1 LAMINECTOMY. LEFT C2 RHIZOTOMY, EXPLORATION OF EPIDURAL PHLEGMON performed by Alisia Crump DO at [facility] OR CHOLECYSTECTOMY EYE SURGERY [address] shunt for open angle glaucoma. MRI compatible- device is all silicone LAMINECTOMY 07/06/2021 Posterior C1, LEFT C2 RHIZOTOMY, EXPLORATION OF EPIDURAL PHLEGMON PICC INSERTION VASCULAR ACCESS TEAM 07/10/2021 SHOULDER SURGERY right TRACHEOSTOMY 07/30/2021 TRACHEOSTOMY N/A 07/30/2021 TRACHEOTOMY performed by Erica Santiago MD at [facility] OR UPPER GASTROINTESTINAL ENDOSCOPY N/A 07/02/2021 EGD ESOPHAGOGASTRODUODENOSCOPY performed by Hari Wagner MD at [facility] Endoscopy Immunization History: There is no immunization history on file for this patient. Active Problems: Patient Active Problem List Diagnosis Code Cellulitis of left finger L03.012 Altered mental state R41.82 Encephalitis G04.90 Encephalopathy G93.40 CIDP (chronic inflammatory demyelinating polyneuropathy) ([facility]) G61.81 Sepsis (HCC) A41.9 Bacteremia R78.81 Hypothyroidism E03.9 Hypokalemia E87.6 Type 2 diabetes mellitus with diabetic polyneuropathy (HCC) E11.42 Primary hypertension I10 Upper GI bleed K92.2 Non-intractable vomiting R11.10 Unintentional weight loss R63.4 Metabolic encephalopathy G93.41 MSSA (methicillin susceptible Staphylococcus aureus) septicemia (HCC) A41.01 CRP elevated R79.82 Bandemia D72.825 Allergy to multiple antibiotics Z88.1 Pyogenic inflammation of bone ([facility]) M86.9 Acute intractable headache R51.9 Septic arthritis of cervical spine ([facility]) M46.52 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 G06.1 COVID U07.1 Hypomagnesemia E83.42 Normocytic anemia D64.9 Acute respiratory failure with hypoxemia ([facility]) J96.01 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 ACP (advance care planning) Z71.89 Goals of care, counseling/discussion Z71.89 Encounter for palliative care Z51.5 Feeding difficulties R63.30 On tube feeding diet Z78.9 Isolation/Infection: Isolation No Isolation Patient Infection Status Infection Onset Added Last Indicated Last Indicated By Review Planned Expiration Resolved Resolved By None active Resolved C-diff Rule Out 07/15/21 07/15/21 07/15/21 C DIFF TOXIN/ANTIGEN (Ordered) 07/18/21 Eduarda Gordillo RN Order COVID-19 07/13/21 07/13/21 07/13/21 COVID-19, Rapid 07/23/21 Eduarda Gordillo RN Per ID note COVID-19 (Rule Out) 07/13/21 07/13/21 07/13/21 COVID-19, Rapid (Ordered) 07/13/21 Rule-Out Test Resulted COVID-19 (Rule Out) 06/29/21 06/29/21 06/29/21 Respiratory Panel, Molecular, with COVID-19 (Restricted: peds pts or suitable admitted adults) (Ordered) 06/29/21 Eduarda Gordillo RN Negative test COVID-19 (Rule Out) 06/28/21 06/28/21 06/28/21 COVID-19, Rapid (Ordered) 06/28/21 Rule-Out Test Resulted Nurse Assessment: Last Vital Signs: BP (!) 158/75 Pulse (!) 104 Temp 100 F (37.8 C) (Oral) Resp 17 Ht 5' 5 (1.651 m) Wt 130 lb 8.2 oz (59.2 kg) LMP 12/02/2011 SpO2 100% BMI 21.72 kg/m Last documented pain score (0-10 scale): Pain Level: (scheduled dose) Last Weight: Wt Readings from Last 1 Encounters: 08/08/21 130 lb 8.2 oz (59.2 kg) Mental Status: alert and trached - BC orientation IV Access: PIV - 20 right FA, insertion date: 08/10/2021 PICC - right brachial, insertion date: 07/10/2021 Nursing Mobility/ADLs: Walking Dependent Transfer Dependent Bathing Dependent Dressing Dependent Toileting Dependent Feeding Dependent Spanish Literature Professor Dependent Med Delivery crushed and via right NGT Wound Care Documentation and Therapy: Wound 07/02/21 Foot Left;Plantar Dry, scabbed. No drainage noted. (Active) Wound Etiology Other 08/10/21 1200 Dressing Status Other (Comment) 08/10/21 1200 Wound Cleansed Soap and water 08/06/21 0400 Dressing/Treatment Open to air 08/10/21 1200 Wound Assessment Eschar dry 08/10/21 1200 Drainage Amount None 08/10/21 1200 Drainage Description Serous 07/20/21 0450 Odor None 08/10/21 1200 Shannan-wound Assessment Hyperkeratosis (callous) 08/10/21 1200 Wound Thickness Description not for Pressure Injury Partial thickness 07/30/21 1600 Number of days: 39 Wound 07/19/21 shannan-anal to sacral moisture associated skin damage (Active) Wound Image 07/19/21 1032 Wound Etiology Pressure Stage 2 08/10/21 1200 Dressing Status Intact 08/10/21 1200 Wound Cleansed Irrigated with saline;Other (Comment) 08/10/21 1200 Dressing/Treatment Zinc paste 08/10/21 1200 Wound Length (cm) 3.5 cm 08/02/21 1537 Wound Width (cm) 3 cm 08/02/21 1537 Wound Depth (cm) 0.1 cm 08/02/21 1537 Wound Surface Area (cm^2) 10.5 cm^2 08/02/21 1537 Change in Wound Size % (l*w) 78.57 08/02/21 1537 Wound Volume (cm^3) 1.05 cm^3 08/02/21 1537 Wound Healing % 79 08/02/21 1537 Wound Assessment Denuded;[place]/red 08/10/21 1200 Drainage Amount Scant 08/10/21 1200 Drainage Description Serosanguinous 08/10/21 1200 Odor None 08/10/21 1200 Shannan-wound Assessment Fragile 08/10/21 1200 Margins Attached edges 08/08/21 0800 Number of days: 22 Incision 07/06/21 Neck Posterior (Active) Dressing Status Clean;Dry;Intact 08/10/21 1200 Incision Cleansed Not Cleansed 08/10/21 1200 Dressing/Treatment Open to air 08/10/21 1200 Closure Open to air 08/10/21 1200 Margins Other (Comment) 08/07/21 0000 Incision Assessment Other (Comment) 08/07/21 0000 Drainage Amount None 08/10/21 1200 Odor None 08/10/21 1200 Shannan-incision Assessment Fragile 08/06/21 0400 Number of days: 34 Incision 07/30/21 Neck (Active) Wound Image 08/04/21 0800 Dressing Status Clean;Dry;Intact 08/09/21 0400 Incision Cleansed Not Cleansed 08/10/21 0400 Dressing/Treatment Foam 08/08/21 0400 Incision Assessment Bleeding;Erythema 08/10/21 0400 Drainage Amount Small 08/10/21 0400 Drainage Description Sanguinous 08/10/21 0400 Odor None 08/10/21 0400 Shannan-incision Assessment Fragile;Excoriated 08/10/21 0400 Number of days: 11 Elimination: Continence: Bowel: FMS Bladder: external cath, bladder scan Q6 hours & straight cath prn for >350 ml Urinary Catheter: None Colostomy/Ileostomy/Ileal Conduit: No Rectal Tube-Stool Appearance: Loose,Watery Rectal Tube-Stool Color: Brown Rectal Tube-Stool Amount: Small Date of Last BM: 08/10/2021 Intake/Output Summary (Last 24 hours) at 08/10/2021 1612 Last data filed at 08/10/2021 1544 Gross per 24 hour Intake 2299.62 ml Output 2250 ml Net 49.62 ml I/O last 3 completed shifts: In: 3225.5 [I.V.:511.4; NG/GT:2119; IV Piggyback:595.1] Out: 3100 [Urine:2800; Stool:300] Safety Concerns: At Risk for Falls and Aspiration Risk Impairments/Disabilities: None Nutrition Therapy: Current Nutrition Therapy: - Tube Feedings: Diabetic and 45 ml/hr Routes of Feeding: Nasogastric Liquids: No Restrictions Daily Fluid Restriction: no Last Modified Barium Swallow with Video (Video Swallowing Test): done on 07/18/2021/failed Treatments at the Time of Hospital Discharge: Respiratory Treatments: none Oxygen Therapy: is not on home oxygen therapy. Ventilator: - Ventilator Settings: Vt (Set, mL): 400 mL Resp Rate (Set): 15 bmp FiO2 : 30 % PEEP/CPAP (cmH2O): 5 Pressure Support: 8 cmH20 Rehab Therapies: Physical Therapy, Occupational Therapy, and Speech/Language Therapy Weight Bearing Status/Restrictions: No weight bearing restrictions Other Medical Equipment (for information only, NOT a DME order): wheelchair, walker, bath bench, bedside commode, hospital bed, and c-spine Other Treatments: c-spine precautions, rigid c-collar Patient's personal belongings (please select all that are sent with patient): None RN SIGNATURE: CASE MANAGEMENT/SOCIAL WORK SECTION Inpatient Status Date: Readmission Risk Assessment Score: Readmission Risk Risk of Unplanned Readmission: 24 Discharging to Facility/ Agency Name: [facility] Address: [address] [place] [address] Dialysis Facility (if applicable) Name: Address: Dialysis Schedule: Phone: Fax: Hat Presser/Test Preparation Tutor signature: ICIAN SECTION Prognosis: Fair Condition at Discharge: Stable Rehab Potential (if transferring to Rehab): Fair Recommended Labs or Other Treatments After Discharge: Recommend calling Neurosurgery Clinic to schedule surgery, tenatively 08/22/21. Recommend obtaining every other day CBC, BMP; Blood glucose every 6 hours and nightly. Patient will require IV Nafcillin treatment until she receives surgery for osteomyelitis causing unstable C2 fracture. Patient should remain in C collar at all times. Continue tube feeds for nutrition. Physician Certification: I certify the above information and transfer of Meg Georges is necessary for the continuing treatment of the diagnosis listed and that she requires Detention Facility for less 30 days. Update Admission H&P: No change in H&P PHYSICIAN SIGNATURE: Carlos Liu MD - 07/19/2021 Discharge with NG for now and re- evaluate swallow study after 2 weeks and decide on further PEG tube vs removal of NG. Continue naficillin 08/15/21 via PICC line. Continue oral kcl 40 meq 3 times a day. Follow with nephrology and PCP as outpatient. documented in this encounter [employer] Phone: 07-14-2021 History of Present illness Narrative Called and spoke with Jess GARVIN and gave report. Lunch tray provided - puree and thickened liquids. Pt sitting up and eating at this time. Denies further needs. Called and updated sister, Hina with status. Pt accepted to [facility]- bed pending. documented in this encounter [employer] Phone: 07-10-2021 History of Present illness Narrative Spoke with internal medicine resident regarding this patient. Patient can follow-up outpatient for concern of retention in the office. Gave information needed for this. Encouraged timed voids. If patient has POST void residual volumes greater than 400 then can recommend straight catheterization and have the nursing staff teach the patient how to do so. If the patient continues to have greater than 400 on postvoid residual volumes does not want to learn how to straight catheterize then can place an indwelling [place]. Patient can be discharged today and be seen in office by urology. Jossie Padilla MD Urology Speech Language Pathology Speech Language Pathology [facility] Cognitive/Dysphagia Treatment Note Date: 07/10/2021 Patient s Name: Meg Georges Patient Active Problem List Diagnosis Code Cellulitis of left finger L03.012 Altered mental state R41.82 Encephalitis G04.90 Encephalopathy G93.40 CIDP (chronic inflammatory demyelinating polyneuropathy) ([facility]) G61.81 Sepsis ([facility]) A41.9 Bacteremia R78.81 Hypothyroidism E03.9 Hypokalemia E87.6 Type 2 diabetes mellitus with diabetic polyneuropathy [facility] [facility] E11.42 Primary hypertension I10 Upper GI bleed K92.2 Non-intractable vomiting R11.10 Unintentional weight loss R63.4 Acute metabolic encephalopathy G93.41 MSSA (methicillin susceptible Staphylococcus aureus) septicemia ([facility]) A41.01 CRP elevated R79.82 Bandemia D72.825 Allergy to multiple antibiotics Z88.1 Pyogenic inflammation of bone ([facility]) M86.9 Acute intractable headache R51.9 Acute osteomyelitis of cervical spine ([facility]) M46.22 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 G06.1 Pain: 0/10 Cognitive Treatment Treatment time: [id number] Subjective: [] Alert [x] Cooperative [] Confused [] Agitated [x] Lethargic Objective/Assessment: Recall: Coding and grouping items for recall: Pairing items; 8/16 increased to 15/16 with repetitions. Pt fell asleep a few times during task. Other: Pt. Seen for O/M treatment program. Pt. Completed O/M exercises X 5-10 X 1 set with min-mod cues. Pt. Completed bree maneuver X 5 reps with min cues. Education provided and exercises left at bedside. Pt demonstrated difficulties with lingual ROM. Plan: [x] Continue ST services [] Discharge from ST: Discharge recommendations: [] Further therapy recommended at discharge.The patient should be able to tolerate at least 3 hours of therapy per day over 5 days or 15 hours over 7 days. [x] Further therapy recommended at discharge. [] No therapy recommended at discharge. Completed by Chaitanya Pratt Senior Technical Program Manager Clinician Co-signed byHina Sawyer M.S. CCC/OPERATIONS RECRUITER Images from the original note were not included. [facility] Internal Medicine Teaching Residency Program Inpatient Daily Progress Note __ Patient: Meg Georges Date of : 1965 Acct: [id number] Room: 0146/0146-01 Admit date: 06/28/2021 Today's date: 07/10/21 Number of days in the hospital: 12 SUBJECTIVE Admitting Diagnosis: Sepsis (HCC) CC: AMS - Pt examined at bedside. Chart & results reviewed. - No acute events overnight - A&OX3, vitals stable, afebrile - K+ 3.3, replaced, glycemia running low. Lantus held - UOP 1090 - Blood Cx neg thus far, last positive on 07/04/2021. crp 161 - Hgb 8.3, wbc 17.9, plt 530 - lovenox to be unheld pending neurosurgery recommendations. Discharge planning pending neurosurgery clearance ROS: Constitutional: negative for chills, fevers, sweats Respiratory: negative for cough, dyspnea on exertion, hemoptysis, shortness of breath, wheezing Cardiovascular: negative for chest pain, chest pressure/discomfort, lower extremity edema, palpitations Gastrointestinal: negative for abdominal pain, constipation, diarrhea, nausea, vomiting Neurological: negative for dizziness, headache BRIEF HISTORY The patient is a pleasant 56 y.o. female presents with a chief complaint of altered mentation. 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 Presented to ED from 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, found confused outside. Imaging negative. She complains of headache 11/26, not sure how she got to ED. Denies fever, vomiting, chest kristan, cough, SOB, abdominal pain. States last BM yesterday soft. Patient somnolent but arousable, follows command, hypertensive BP as high as 202/105, HR 110, on room air. Significant labs include glycemia 254, wbc 22. Lumbar tap done. Not concerning for acute meningitis. OBJECTIVE Vital Signs: BP (!) 120/58 Pulse 95 Temp 97.6 F (36.4 C) (Oral) Resp 21 Ht 5' 5 (1.651 m) Wt 161 lb 11.2 oz (73.3 kg) LMP 12/02/2011 SpO2 95% BMI 26.91 kg/m Temp (24hrs), Av.5 F (36.4 C), Min:97.2 F (36.2 C), Max:98 F (36.7 C) In: 3479 Out: 1090 [Urine:1090] Physical Exam: Physical Exam Vitals and nursing note reviewed. Constitutional: Appearance: Normal appearance. HENT: Head: Normocephalic and atraumatic. Nose: Nose normal. Mouth/Throat: Mouth: Mucous membranes are moist. Pharynx: Oropharynx is clear. Eyes: Extraocular Movements: Extraocular movements intact. Conjunctiva/sclera: Conjunctivae normal. Pupils: Pupils are equal, round, and reactive to light. Cardiovascular: Rate and Rhythm: Normal rate and regular rhythm. Pulses: Normal pulses. Heart sounds: Normal heart sounds. No murmur heard. No friction rub. No gallop. Pulmonary: Effort: Pulmonary effort is normal. No respiratory distress. Breath sounds: Normal breath sounds. No stridor. No wheezing, rhonchi or rales. Chest: Chest wall: No tenderness. Abdominal: General: Abdomen is flat. Bowel sounds are normal. There is no distension. Palpations: Abdomen is soft. There is no mass. Tenderness: There is no abdominal tenderness. There is no guarding or rebound. Hernia: No hernia is present. Musculoskeletal: General: No swelling, deformity or signs of injury. Normal range of motion. Cervical back: Normal range of motion. Tenderness present. Right lower leg: No edema. Left lower leg: No edema. Lymphadenopathy: Cervical: No cervical adenopathy. Skin: General: Skin is warm. Neurological: General: No focal deficit present. Mental Status: She is alert and oriented to person, place, and time. Mental status is at baseline. Psychiatric: Mood and Affect: Mood normal. Behavior: Behavior normal. Thought Content: Thought content normal. Judgment: Judgment normal. Medications: Scheduled Medications: potassium bicarb-citric acid 40 mEq Oral Daily levothyroxine 100 mcg Oral Daily potassium chloride 40 mEq Oral Once sodium chloride flush 5-40 mL IntraVENous 2 times per day acetaminophen 650 mg Oral Q6H sennosides-docusate sodium 1 tablet Oral BID gabapentin 200 mg Oral TID lidocaine 1 patch TransDERmal Daily valproic acid 250 mg Oral BID fluconazole 200 mg Oral Daily [Held by provider] lisinopril 10 mg Oral Daily insulin glargine 16 Units SubCUTAneous Daily [Held by provider] aspirin 81 mg Oral Daily nafcillin 2,000 mg IntraVENous Q4H carvedilol 25 mg Oral BID sodium chloride flush 5-40 mL IntraVENous 2 times per day enoxaparin 40 mg SubCUTAneous Daily latanoprost 1 drop Both Eyes Nightly insulin lispro 0-12 Units SubCUTAneous TID insulin lispro 0-6 Units SubCUTAneous Nightly Continuous Infusions: sodium chloride sodium chloride 100 mL/hr at 07/09/21 1838 dextrose PRN Medicationssodium chloride flush, 5-40 mL, PRN sodium chloride, , PRN oxyCODONE, 5 mg, Q4H PRN Or oxyCODONE, 10 mg, Q4H PRN morphine, 1 mg, Q4H PRN potassium chloride, 10 mEq, PRN sodium chloride flush, 10 mL, PRN sodium chloride flush, 10 mL, PRN loperamide, 2 mg, 4x Daily PRN sodium chloride flush, 10 mL, PRN tiZANidine, 2 mg, Q8H PRN hydrALAZINE, 10 mg, Q4H PRN sodium chloride flush, 5-40 mL, PRN ondansetron, 4 mg, Q8H PRN Or ondansetron, 4 mg, Q6H PRN [MAR Hold] bisacodyl, 5 mg, Daily PRN sodium chloride flush, 5-40 mL, PRN labetalol, 10 mg, Q4H PRN glucose, 4 tablet, PRN dextrose bolus, 125 mL, PRN Or dextrose bolus, 250 mL, PRN glucagon (rDNA), 1 mg, PRN dextrose, 100 mL/hr, PRN Diagnostic Labs: CBC: Recent Labs 07/08/21 0617 07/08/21 0617 07/08/21 0848 07/09/21 0532 07/10/21 0341 WBC 11.4* -- -- 11.5* 17.9* RBC 2.51* -- -- 3.11* 2.99* HGB 6.9* < > 8.1* 8.5* 8.3* HCT 21.5* < > 25.5* 27.9* 25.6* MCV 85.7 -- -- 89.7 85.6 RDW 18.6* -- -- 19.9* 20.4* PLT 328 -- -- 434 530* < > = values in this interval not displayed. BMP: Recent Labs 07/08/21 0617 07/09/21 0532 07/10/21 0341 NA 138 140 140 K 2.9* 3.9 3.3* CL 108* 109* 110* CO2 20 20 16* BUN 7 7 7 CREATININE 0.83 0.81 1.01* BNP: No results for input(s): BNP in the last 72 hours. PT/INR: No results for input(s): PROTIME, INR in the last 72 hours. APTT: No results for input(s): APTT in the last 72 hours. CARDIAC ENZYMES: No results for input(s): CKMB, CKMBINDEX, TROPONINI in the last 72 hours. Invalid input(s): CKTOTAL;3 FASTING LIPID PANEL: Lab Results Component Value Date CHOL 155 06/28/2021 HDL 71 06/28/2021 TRIG 105 06/28/2021 LIVER PROFILE: No results for input(s): AST, ALT, ALB, BILIDIR, BILITOT, ALKPHOS in the last 72 hours. MICROBIOLOGY: Lab Results Component Value Date/Time CULTURE NO GROWTH 1 DAY 07/08/2021 06:16 AM Imaging: MRI CERVICAL SPINE W WO CONTRAST Result Date: 07/05/2021 Osteomyelitis involving the odontoid process extending into the body of C2 as well as the inferior portion of the clivus. Moderate surrounding inflammation at the C1-C2 articulations compatible with surrounding phlegmon. These changes were similarly present on previous CT of the cervical spine. There is a suspected stable tiny ventral epidural abscess measuring 0.9 x 0.3 cm. Stable moderate narrowing of the spinal canal is identified at the foramen magnum. Mild central canal stenosis and moderate left foraminal stenosis at C6-C7. NM BONE SCAN 3 PHASE Result Date: 07/03/2021 Early and delayed phase activity is seen at the cranial cervical junction, including C2, clivus, occipital condyles/C1 lateral masses. Some considerations include osteomyelitis, inflammatory arthropathy, or metastatic disease. MR could be performed for further study as clinically warranted. XR CERVICAL SPINE FLEXION AND EXTENSION Result Date: 07/03/2021 Abnormal mineralization the craniocervical junction characterized to advantage on recent CT. No findings of dynamic instability with overall limited range of motion and background cervical straightening. MRI BRAIN W WO CONTRAST Result Date: 07/05/2021 Mild cerebral atrophy. Mild chronic small vessel ischemic disease. Remote lacunar infarct in the right cerebellum. No acute brain parenchymal abnormality. There are abnormal signal changes surrounding the clivus and dens consistent with the patient's known osteomyelitis . Refer to the MRI of the cervical spine from 07/04/2021. FL MODIFIED BARIUM SWALLOW W VIDEO Result Date: 07/05/2021 Small amount of aspiration of thin liquid without cough response. Other consistencies show no aspiration or laryngeal penetration but there is pooling in the vallecula and piriform sinuses. Please see separate speech pathology report for full discussion of findings and recommendations. FL MODIFIED BARIUM SWALLOW W VIDEO Result Date: 07/03/2021 Swallowing mechanism grossly within normal limits without evidence of aspiration. Please see separate speech pathology report for full discussion of findings and recommendations. ASSESSMENT & PLAN Assessment and Plan: Principal Problem: Sepsis (HCC) Active Problems: Altered mental state Encephalitis Encephalopathy CIDP (chronic inflammatory demyelinating polyneuropathy) (HCC) Bacteremia Hypothyroidism Hypokalemia Type 2 diabetes mellitus with diabetic polyneuropathy (HCC) Primary hypertension Upper GI bleed Non-intractable vomiting Unintentional weight loss Acute metabolic encephalopathy MSSA (methicillin susceptible Staphylococcus aureus) septicemia (HCC) CRP elevated Bandemia Allergy to multiple antibiotics Pyogenic inflammation of bone (HCC) Acute intractable headache Acute osteomyelitis of cervical spine (HCC) 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 * Sepsis with MSSA bacteremia; osteomyelitis of C2: -continu Nafcillin 2 g q 4 h. Stop date 07-29-21 per ID -Repeat blood cultures positive -echo normal. EF > 55%, no valvular abnormalities, no vegetations. - Erosive changes at craniocervical junction which may be related to arthritis or osteomyelitis by CT cervical spine 06-29-21 -left foot ulceration; Podiatry consulted for concern for osteomyelitis and possible source of MSSA bacteremia -XR left foot negative for osteomyelitis - CT chest showed right upper lobe pulmonary nodule -resp viral panel negative - Bone scan concerning for c1-c2 osteomyelitis osteomyelitis C1-C2 with epidural abscess Neurosurgery on board MRI cervical spine and brain confirms today small epidural abscess at C1/2 level with compression of the brainstem spinal cord junction. s/p C1-2 laminectomy, C2 rhizotomy 07/06/2021. Alan esophagitis: On EGD 07/02/2021. On Diflucan 200 mg daily for 14 days. GI signed off. Hypothyroidism: TSH low. Levothyroxine dose decreased from 112 mcg to 100 mcg daily Diabetes Mellitus type II: Medium dose ISS Hypoglycemia protocol Glucose checks q4 lantus held Essential hypertension: BP running soft overnight. On Coreg and lisinopril. Hold antihypertensives. Elevated troponins: Downtrended likely type II AL Hypokalemia: Repeat potassium level and replace if needed Left Vocal cord paralysis: Ongoing x 1 month. ENT on board. Plan for injection laryngoplasty for voice/swallowing improvement at some point. Passed swallow study. Diet: Easy to chew DVT ppx : Lovenox held GI ppx: None PT/OT/SW: Consulted Discharge Planning: In process Rufus Argueta MD Internal Medicine Resident, PGY- [facility]; [place], [place] 07/10/2021, 7:18 AM Associated attestation - Silver Carmona MD - 07/10/2021 11:42 AM EDT Images from the original note were not included. Attending Physician Statement I have discussed the case, including pertinent history and exam findings with the resident and the team. I have seen and examined the patient and the coffey elements of the encounter have been performed by me. I agree with the assessment, plan and orders as documented by the resident. Review of Systems: In addition to the pertinent positives and negatives as stated within HPI and the review of systems as documented in their notes, all other systems were reviewed when able to and are reported negative. Patient is having some issues with urine retention. Neurosurgery was informed. Follow neurosurgery recommendations. Follow urology recommendations. They will follow-up outpatient. Start probiotics for diarrhea, outpatient basic metabolic panel Replace potassium Continue antibiotics per infectious disease and patient to follow-up with them outpatient Discharge planning if okay with other services Discharge time: 32 minutes Silver Carmona MD Attending Physician, Internal Medicine Service Internal Medicine Residency Program 07/10/2021, 11:40 AM Images from the original note were not included. [facility] - Infectious diseases evaluation admission date 06/28/2021 reason for consultation: Sepsis with staph bacteremia Impression : Current: MSSA septicemia 06/28 - till 07/05 CRP elevation cerv spine osteomyelitis - erosions on CT and b scan / MRI - 07/06 post surgery to the neck POSTERIOR CERVICAL C1 LAMINECTOMY. LEFT C2 RHIZOTOMY, EXPLORATION OF EPIDURAL PHLEGMON No hardware placed bandemia Acute metabolic encephalopathy- resolving -LP neg CIDP chronic IVIG therapy - immunosuppressdUlcer on the left foot Allergy to keflex and avelox - tolerates PNC Other: Hypothyroidism Diabetes mellitus type 2 Essential hypertension Elevated troponin CIDP on IVIG infusions every 2 weeks Discussion / summary of stay / plan of care Recommendations Acute encephalopathy from sepsis - resolved - LP neg MSSA septicemia -persistent till 07/04 Echo neg for vegetation EMIR deferred to avoid neck extention BC repeat re neg since .20 Nafcillin 2 g q 4 - 6 weeks since surgery ie till 08/20/21 then stop iv AB and pull line. watch WBC Cough - neg CT chest for septic emboli Neck new pain -1 Mo old - B scan / CT/ MRI + OM and epidural anterior abscess 05/06 cerv spine surg, cx neg alan esophagitis on EGD 07/02 - fluconazole 200 daily till 07/12 Chart reconsiled for DC Needs a picc line due to nafciline Infection Control Recommendations [place] Precautions Contact Isolation Antimicrobial Stewardship Recommendations Simplification of therapy Targeted therapy History of Present Illness: Initial history: Meg Georges is a 56 y.o.-year-old female presented to the ED for altered mental status. Patient is currently admitted under neurology service. Patient presented from a 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 after an episode of confusion overnight where she was found wandering outside her 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. She had CT head done at outside facility which did not show any acute changes, telestroke was consulted for the concern of confusion, they recommended transfer to [facility] for MRI of the brain. BC SA MSSA and LP neg CRP elevated and WBc up - creat normal 06/29 mentally recovered Neck pain x 1 mo Left sole callus was infected x 2 months ago at the CT She gets her IvIg through a periph that gets pulled each time - no picc outpt Hoarse x some time wo reason Cough x 1 month Interval changes 07/09/2021 Patient Vitals for the past 8 hrs: BP Temp Temp src Pulse Resp SpO2 07/09/21 1604 69 16 96 % 07/09/21 1603 72 20 96 % 07/09/21 1602 71 18 95 % 07/09/21 1601 72 20 95 % 07/09/21 1600 (!) 87/50 97.2 F (36.2 C) Oral 72 21 95 % 07/09/21 1559 72 19 96 % 07/09/21 1213 (!) 99/52 77 16 97 % 07/09 BS 59 and pt appropriate - eating Neck collar abd soft non tender Neck OR cx 07/06 neg BC repeat 07/07 and 07/08 are still neg Labs reviewed 07/07 Neck pain still - post surgery to the neck 07/06 POSTERIOR CERVICAL C1 LAMINECTOMY. LEFT C2 RHIZOTOMY, EXPLORATION OF EPIDURAL PHLEGMON 07/06 Drain w sero sang fluid still present Echo EF55 and no vegetation No fever - ox 3 07/05: CRP-186.3 on the rise still All BC so far + MSSA MRI C soine shows C spine epidural anterior abscess w OM - No weakness =but severe neck pain and CRP on the rise, BC all still +, hence suggest sx drainage if feasible 07/04:EGD 07/02 + alan esophagitis - starting fluconazole Still neck pain - MRI deferred due to metal in eye -bone scan ordered Still hoarse a little though better Labs reviewed 07/03/21 Neck pain ++ B scan + mets or infection - unclear CT c spine w erosions of the bone, infection or mets BC still + through 07/02 Did not meet criteria for the SA bacteremia research study Summary of relevant labs: Labs: CRP 150.7 - 191 - 186 procalcitonin 0.66, WBC-15 - 10 Micro: 06/29 -07/01 - 07 04 Blood Culture MSSA 06/29 LP -WBC 2 - RBC 1 - cx pend Imaging: MRI C spine Osteomyelitis involving the odontoid process extending into the body of C2 as well as the inferior portion of the clivus. Moderate surrounding inflammation at the C1-C2 articulations compatible with surrounding phlegmon. These changes were similarly present on previous CT of the cervical spine. There is a suspected stable tiny ventral epidural abscess measuring 0.9 x 0.3 cm. Stable moderate narrowing of the spinal canal is identified at the foramen magnum. Mild central canal stenosis and moderate left foraminal stenosis at C6-C7. I have personally reviewed the past medical history, past surgical history, medications, social history, and family history, and I haveupdated the database accordingly. Allergies: Moxifloxacin, Peg 3350-electrolytes, Tapentadol, Avelox [moxifloxacin hydrochloride], and Cephalexin Review of Systems: Review of Systems Constitutional: Negative for activity change. HENT: Negative for congestion. Hoarse Eyes: Negative for pain, discharge and redness. Respiratory: Negative for apnea. Cardiovascular: Negative for chest pain. Gastrointestinal: Negative for abdominal distention. Endocrine: Negative for heat intolerance, polydipsia and polyphagia. Genitourinary: Negative for dysuria. Musculoskeletal: Positive for neck pain. Skin: Negative for color change. Rash: left sole under MTS head 1. Allergic/Immunologic: Negative for immunocompromised state. Neurological: Negative for dizziness, light-headedness and headaches. Hematological: Negative for adenopathy. Psychiatric/Behavioral: Negative for agitation. Physical Examination : Physical Exam Constitutional: Appearance: Normal appearance. She is not ill-appearing. HENT: Head: Normocephalic and atraumatic. Nose: Nose normal. Mouth/Throat: Mouth: Mucous membranes are moist. Eyes: Conjunctiva/sclera: Conjunctivae normal. Pupils: Pupils are equal, round, and reactive to light. Cardiovascular: Rate and Rhythm: Normal rate and regular rhythm. Heart sounds: Normal heart sounds. Pulmonary: Effort: No respiratory distress. Breath sounds: Normal breath sounds. Abdominal: General: There is no distension. Palpations: Abdomen is soft. Tenderness: There is no abdominal tenderness. Genitourinary: Comments: Urine chanda Musculoskeletal: General: No swelling, tenderness, deformity or signs of injury. Cervical back: Neck supple. No rigidity or tenderness. Right lower leg: No edema. Skin: Coloration: Skin is not jaundiced or pale. Findings: No bruising or erythema. Neurological: General: No focal deficit present. Mental Status: She is alert and oriented to person, place, and time. Cranial Nerves: No cranial nerve deficit. Psychiatric: Mood and Affect: Mood normal. Past Medical History: Past Medical History: Diagnosis Date Asthma Cardiac murmur Diabetes mellitus (HCC) GERD (gastroesophageal reflux disease) Hyperlipidemia Hypertension Neuropathy Radiculopathy Spinal stenosis Thyroid disease Past Surgical History: Past Surgical History: Procedure Laterality Date ACHILLES TENDON SURGERY left BACK SURGERY L 4 and 5 1995, 1996 CERVICAL FUSION N/A 07/06/2021 POSTERIOR CERVICAL C1 LAMINECTOMY. LEFT C2 RHIZOTOMY, EXPLORATION OF EPIDURAL PHLEGMON performed by Alisia Crump DO at [facility] OR CHOLECYSTECTOMY EYE SURGERY [address] 250 shunt for open angle glaucoma. MRI compatible- device is all silicone LAMINECTOMY 07/06/2021 Posterior C1, LEFT C2 RHIZOTOMY, EXPLORATION OF EPIDURAL PHLEGMON SHOULDER SURGERY right UPPER GASTROINTESTINAL ENDOSCOPY N/A 07/02/2021 EGD ESOPHAGOGASTRODUODENOSCOPY performed by Hari Wagner MD at [facility] Endoscopy Medications: levothyroxine 100 mcg Oral Daily potassium chloride 40 mEq Oral Once sodium chloride flush 5-40 mL IntraVENous 2 times per day acetaminophen 650 mg Oral Q6H sennosides-docusate sodium 1 tablet Oral BID gabapentin 200 mg Oral TID lidocaine 1 patch TransDERmal Daily valproic acid 250 mg Oral BID fluconazole 200 mg Oral Daily [Held by provider] lisinopril 10 mg Oral Daily insulin glargine 16 Units SubCUTAneous Daily [Held by provider] aspirin 81 mg Oral Daily nafcillin 2,000 mg IntraVENous Q4H carvedilol 25 mg Oral BID WC sodium chloride flush 5-40 mL IntraVENous 2 times per day enoxaparin 40 mg SubCUTAneous Daily latanoprost 1 drop Both Eyes Nightly insulin lispro 0-12 Units SubCUTAneous TID WC insulin lispro 0-6 Units SubCUTAneous Nightly Social History: Social History Socioeconomic History Marital status: Spouse name: Not on file Number of children: Not on file Years of education: Not on file Highest education level: Not on file Occupational History Not on file Tobacco Use Smoking status: Former Smoker Years: 20.00 Types: Cigarettes Quit date: 10/06/1995 Years since quittin.7 Smokeless tobacco: Never Used Substance and Sexual Activity Alcohol use: No Drug use: No Sexual activity: Not on file Other Topics Concern Not on file Social History Narrative Not on file Social Determinants of Health Financial Resource Strain: Difficulty of Paying Living Expenses: Not on file Food Insecurity: Worried About Running Out of Food in the Last Year: Not on file Ran Out of Food in the Last Year: Not on file Transportation Needs: Lack of Transportation (Medical): Not on file Lack of Transportation (Non-Medical): Not on file Physical Activity: Days of Exercise per Week: Not on file Minutes of Exercise per Session: Not on file Stress: Feeling of Stress : Not on file Social Connections: Frequency of Communication with Friends and Family: Not on file Frequency of Social Gatherings with Friends and Family: Not on file Attends Mosque Services: Not on file Active Member of Clubs or Organizations: Not on file Attends Club or Organization Meetings: Not on file Marital Status: Not on file Intimate Partner Violence: Fear of Current or Ex-Partner: Not on file Emotionally Abused: Not on file Physically Abused: Not on file Sexually Abused: Not on file Housing Stability: Unable to Pay for Housing in the Last Year: Not on file Number of Places Lived in the Last Year: Not on file Unstable Housing in the Last Year: Not on file Family History: Family History Problem Relation Age of Onset Diabetes Mother Cancer Father Medical Decision Making: I have independently reviewed/ordered the following labs: CBC with Differential: Recent Labs 07/08/21 0617 07/08/21 0617 07/08/21 0848 07/09/21 0532 WBC 11.4* -- -- 11.5* HGB 6.9* < > 8.1* 8.5* HCT 21.5* < > 25.5* 27.9* PLT 328 -- -- 434 LYMPHOPCT 17* -- -- 18* MONOPCT 3 -- -- 4 < > = values in this interval not displayed. BMP: Recent Labs 07/08/21 0617 07/09/21 0532 NA 138 140 K 2.9* 3.9 CL 108* 109* CO2 20 20 BUN 7 7 CREATININE 0.83 0.81 MG 1.7 -- Hepatic Function Panel: No results for input(s): PROT, LABALBU, BILIDIR, IBILI, BILITOT, ALKPHOS, ALT, AST in the last 72 hours. No results for input(s): RPR in the last 72 hours. No results for input(s): HIV in the last 72 hours. No results for input(s): BC in the last 72 hours. Lab Results Component Value Date CREATININE 0.81 07/09/2021 GLUCOSE 133 07/09/2021 GLUCOSE 229 06/04/2011 Detailed results: Thank you for allowing us to participate in the care of this patient.Please call with questions. This note is created with the assistance of a speech recognition program. While intending to generate adocument that actually reflects the content of the visit, the document can still have some errors including those of syntax and sound a like substitutions which may escape proof reading. It such instances, actual meaningcan be extrapolated by contextual diversion. Meka Crowe MD Office: [facility] / office [phone] Neurosurgery NATE/Resident Daily Progress Note Chief Complaint Patient presents with Altered Mental Status 07/09/2021 3:43 PM Chart reviewed. No acute events overnight. Pain well controlled. Tolerated nectar thick with purred diet. Walked 4 steps with PT today. Afebrile. Vitals: 07/09/21 0500 07/09/21 0552 07/09/21 0755 07/09/21 1213 BP: 124/76 (!) 99/52 Pulse: 98 77 Resp: 18 16 16 Temp: 98 F (36.7 C) TempSrc: Oral SpO2: 99% 97% Weight: 160 lb 3.2 oz (72.7 kg) Height: PE: AOx3 Motor L deltoid 5/5; R deltoid 5/5 L biceps 5/5; R biceps 5/5 L triceps 5/5; R triceps 5/5 L wrist extension 5/5; R wrist extension 5/5 L intrinsics 5/5; R intrinsics 5/5 L iliopsoas 5/5 , R iliopsoas 5/5 L quadriceps 5/5; R quadriceps 5/5 L Dorsiflexion 4/5; R dorsiflexion 4/5 L Plantarflexion 2/5; R plantarflexion 1/5 Sensation intact Drain output 0 ml/12h Incision posterior cervical dressing intact Lab Results Component Value Date WBC 11.5 (H) 07/09/2021 HGB 8.5 (L) 07/09/2021 HCT 27.9 (L) 07/09/2021 PLT 434 07/09/2021 CHOL 155 06/28/2021 TRIG 105 06/28/2021 HDL 71 06/28/2021 ALT 19 06/28/2021 AST 19 06/28/2021 NA 140 07/09/2021 K 3.9 07/09/2021 CL 109 (H) 07/09/2021 CREATININE 0.81 07/09/2021 BUN 7 07/09/2021 CO2 20 07/09/2021 TSH 0.15 (L) 06/28/2021 INR 1.2 06/28/2021 LABA1C 9.4 (H) 06/28/2021 LABMICR 7 06/25/2013 CRP 124.1 (H) 07/09/2021 SEDRATE 120 (H) 06/28/2021 Culture, Anaerobic and Aerobic [[id number]] Collected: 07/06/212140 Updated: 07/09/21730 Specimen Type: Swab Specimen Source: Spine Specimen Description .SPINE Direct Exam NO NEUTROPHILS SEEN NO BACTERIA SEEN Culture NO GROWTH 3 DAYS A/P 56 y.o. female who presents with epidural abscess of C1-2, compression of cervical medullary junction POD#3 posterior C1 laminectomy, left C2 rhizotomy - aspen cervical collar while out of bed - activity as tolerated, PT and OT eval - f/u cultures from OR - pain control, bowel regimen - discontinue drain today - encourage IS - okay DVT prophylaxis - resume ASA POD#5 Please contact neurosurgery with any changes in patients neurologic status. Kam Loera CNP 07/09/21 3:43 PM Associated attestation - Alisia Crump DO - 07/09/2021 3:58 PM EDT Neurosurgery attending: Patient seen 07/09/2021 I have reviewed the chart, studied the images, and examined the patient personally and agree with the NATE/Resident except with following addendum: POD 3 Hoarseness and pain significantly improved Drain Dced Collar Trend inflammatory marker, improving CRP X.Vaishali Crump DO Neurosurgeon Speech Language Pathology Speech Language Pathology [facility] Cognitive Treatment Note Date: 07/09/2021 Patient s Name: Meg Georges Diagnosis: Patient Active Problem List Diagnosis Code Cellulitis of left finger L03.012 Altered mental state R41.82 Encephalitis G04.90 Encephalopathy G93.40 CIDP (chronic inflammatory demyelinating polyneuropathy) ([facility]) G61.81 Sepsis ([facility]) A41.9 Bacteremia R78.81 Hypothyroidism E03.9 Hypokalemia E87.6 Type 2 diabetes mellitus with diabetic polyneuropathy ([facility]) E11.42 Primary hypertension I10 Upper GI bleed K92.2 Non-intractable vomiting R11.10 Unintentional weight loss R63.4 Acute metabolic encephalopathy G93.41 MSSA (methicillin susceptible Staphylococcus aureus) septicemia ([facility]) A41.01 CRP elevated R79.82 Bandemia D72.825 Allergy to multiple antibiotics Z88.1 Pyogenic inflammation of bone ([facility]) M86.9 Acute intractable headache R51.9 Acute osteomyelitis of cervical spine ([facility]) M46.22 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 G06.1 Pain: 8/10 Cognitive Treatment Treatment time: 2047-7534 Subjective: [x] Alert [x] Cooperative [] Confused [] Agitated [] Lethargic Objective/Assessment: Recall: Delayed recall; 1/4 increased to 2/4 with min verbal cue, 1/4 increased to 3/4 with min verbal cues Word list retention: Word placement; 3 increased to 9/ with repetitions Functional memory: Paragraph facts; 3 increased to 8/14 with repetitions and min verbal cue Problem Solving/Reasoning: Category members: [place]; 2/8 increased to 4/8 with min-mod verbal cues, 9/ increased to 10/ with min verbal cue Other: Pt. Seen for O/M treatment program for dysphagia. Pt. Completed O/M exercises X 5-10 X 1 set with min-mod verbal cues. Education provided re: compensatory strategies to increase swallowing . Pt. Verbalized understanding. Exercise program left at bedside. Pt demonstrated difficulties with tongue protrusion. Plan: [x] Continue services [] Discharge from ST: Discharge recommendations: [] Further therapy recommended at discharge.The patient should be able to tolerate at least 3 hours of therapy per day over 5 days or 15 hours over 7 days. [x] Further therapy recommended at discharge. [] No therapy recommended at discharge. Completed by Cahitanya Pratt Senior Technical Program Manager Clinician Co-signed by Hina Sawyer M.S. CCC/OPERATIONS RECRUITER Physical Therapy Facility/Department: [address] STEP DOWN Daily Treatment Note Name: Meg Georges : 1965 Date of Service: 07/09/2021 Discharge Recommendations: Patient would benefit from continued therapy after discharge PT Equipment Recommendations Equipment Needed: Yes Mobility Devices: Walker Walker: Rolling Patient Diagnosis(es): The primary encounter diagnosis was Stupor. Diagnoses of Encephalitis and Acute osteomyelitis of cervical spine (HCC) were also pertinent to this visit. Past Medical History: has a past medical history of Asthma, Cardiac murmur, Diabetes mellitus (HCC), GERD (gastroesophageal reflux disease), Hyperlipidemia, Hypertension, Neuropathy, Radiculopathy, Spinal stenosis, and Thyroid disease. Past Surgical History: has a past surgical history that includes Cholecystectomy; shoulder surgery; Achilles tendon surgery; back surgery; Upper gastrointestinal endoscopy (N/A, 07/02/2021); Eye surgery; and laminectomy (07/06/2021). Assessment Body Structures, Functions, Activity Limitations Requiring Skilled Therapeutic Intervention: Decreased functional mobility ;Decreased endurance;Decreased ROM;Decreased strength;Decreased safe awareness;Decreased balance;Decreased cognition;Vestibular Impairment;Decreased sensation;Decreased coordination;Increased pain Assessment: Pt presents with poor postural control secondary to posterior lean. Pt's ability to ambulate is limited by bilateral dorsiflexor weakness. Pt c/o increase pain in posterior neck/ head, which is rated as a 7/10. Pt requires min-A for bed mobility for BLE progression along with verbal cues for sequencing. Pt ambulated 4 ft. toward head of bed with Alejandra using a RW. Pt would benefit from continued PT following discharge to address functional deficits. Therapy Prognosis: Good Decision Making: Medium Complexity Clinical Presentation: evolving Requires PT Follow-Up: Yes Activity Tolerance Activity Tolerance: Patient tolerated treatment well Activity Tolerance Comments: Limited by vertigo Plan Plan Plan: 6-7 times per week Current Treatment Recommendations: Strengthening,ROM,Gait training,Balance training,Stair training,Functional mobility training,Transfer training,Endurance training,Safety education & training,Equipment evaluation, education, & procurement,Therapeutic activities,Cognitive/Perceptual training,Patient/Caregiver education & training,Neuromuscular re-education,Vestibular rehab Safety Devices Type of Devices: Gait belt,Bed alarm in place,Call light within reach,Left in bed,Nurse notified,All fall risk precautions in place Restraints Restraints Initially in Place: No Restrictions Restrictions/Precautions Restrictions/Precautions: Fall Risk,Weight Bearing Required Braces or Orthoses?: Yes Lower Extremity Weight Bearing Restrictions Left Lower Extremity Weight Bearing: Weight Bearing As Tolerated Required Braces or Orthoses Cervical: c-collar Left Lower Extremity Brace: (with surgical shoe) Position Activity Restriction Other position/activity restrictions: Had her C2 rhizotomy and C1 laminectomy due to clivus and dens osteomyelitis on 07/06. progress notes indicate needs to mobilize . [place] thick liquids. Documentation of vocal cord paralysis. Dx CIDP (demyelinating disease). Bilateral foot drop. Subjective General Chart Reviewed: Yes Response To Previous Treatment: Patient with no complaints from previous session. Family / Caregiver Present: No Follows Commands: Within Functional Limits General Comment Comments: RN and pt agreeable to PT at this time, Pt returned to supine in bed post PT. Subjective Subjective: Pt c/o increased pain with mobility, 7/10 in posterior neck/head. Cognition Orientation Overall Orientation Status: Within Functional Limits Orientation Level: Oriented to person;Oriented X4;Oriented to situation;Oriented to place;Oriented to time Objective Bed mobility Supine to Sit: Minimal assistance Sit to Supine: Minimal assistance Bed Mobility Comments: Increased time required to complete; c-collar donned prior to initiation of bed mobility. Transfers Sit to Stand: Minimal Assistance Stand to sit: Minimal Assistance Comment: STS performed x 2 from bedside requiring Alejandra using a RW. Ambulation Surface: level tile Device: Rolling Walker Assistance: Minimal assistance Gait Deviations: Slow Barbara;Shuffles;Decreased step length Distance: 4 ft. lateral towards HOB. More Ambulation?: No Stairs/Curb Stairs?: No Balance Posture: Fair Sitting - Static: Fair Sitting - Dynamic: Fair Standing - Static: Fair;- Standing - Dynamic: Poor;+ Comments: Assessed with RW, Pt sat EOB for 15 mins with CGA demos posterior lean and fear of falling. A/AROM Exercises: Ankle pumps- x10 BLE, LAQs- x10 BLE, SLRs- x20 BLE, Hip abduction- x10 BLE. AM-PAC Score AM-PAC Inpatient Mobility Raw Score : 14 (07/09/21 1011) AM-PAC Inpatient T-Scale Score : 38.1 (07/09/21 1011) Mobility Inpatient CMS 0-100% Score: 61.29 (07/09/21 1011) Mobility Inpatient CMS G-Code Modifier : CL (07/09/21 1011) Goals Short Term Goals Time Frame for Short term goals: 14 Short term goal 1: Pt to perform bed mobility independently Short term goal 2: Demonstrate functional transfers with supervision Short term goal 3: Ambulate 150ft w/ no AD with supervision Short term goal 4: Tolerate 30 mintues of therapy to demo increased endurance Patient Goals Patient goals : To go home Therapy Time Individual Concurrent Group Co-treatment Time In 08 Time Out 0933 Minutes 38 Timed Code Treatment Minutes: 38 Minutes Franck Burnhma PTA Images from the original note were not included. [facility] Internal Medicine Teaching Residency Program Inpatient Daily Progress Note __ Patient: Meg Georges Date of : 1965 Acct: [id number] Room: [address] [place] [address]- Admit date: 06/28/2021 Today's date: 07/09/21 Number of days in the hospital: 11 SUBJECTIVE Admitting Diagnosis: Sepsis (HCC) CC: AMS - Pt examined at bedside. Chart & results reviewed. - No acute events overnight - A&OX3, vitals stable, afebrile - Mild neck pain but much improved - UOP 1075 - Blood Cx neg thus far, last positive on 07/04/2021. crp trending down 124 - Hgb 8.5, wbc 11.5, plt 434. - lovenox to be unheld pending neurosurgery recommendations. Discharge planning pending neurosurgery clearance ROS: Constitutional: negative for chills, fevers, sweats Respiratory: negative for cough, dyspnea on exertion, hemoptysis, shortness of breath, wheezing Cardiovascular: negative for chest pain, chest pressure/discomfort, lower extremity edema, palpitations Gastrointestinal: negative for abdominal pain, constipation, diarrhea, nausea, vomiting Neurological: negative for dizziness, headache BRIEF HISTORY The patient is a pleasant 56 y.o. female presents with a chief complaint of altered mentation. 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 Presented to ED from 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, found confused outside. Imaging negative. She complains of headache /, not sure how she got to ED. Denies fever, vomiting, chest kristan, cough, SOB, abdominal pain. States last BM yesterday soft. Patient somnolent but arousable, follows command, hypertensive BP as high as 202/105, HR 110, on room air. Significant labs include glycemia 254, wbc 22. Lumbar tap done. Not concerning for acute meningitis. OBJECTIVE Vital Signs: BP 123/63 Pulse 75 Temp 97.9 F (36.6 C) (Oral) Resp 18 Ht 5' 5 (1.651 m) Wt 160 lb 3.2 oz (72.7 kg) LMP 12/02/2011 SpO2 98% BMI 26.66 kg/m Temp (24hrs), Av.1 F (36.7 C), Min:97.9 F (36.6 C), Max:98.4 F (36.9 C) In: 5968.4 Out: 1080 [Urine:1075; Drains:5] Physical Exam: Physical Exam Vitals and nursing note reviewed. Constitutional: Appearance: Normal appearance. HENT: Head: Normocephalic and atraumatic. Nose: Nose normal. Mouth/Throat: Mouth: Mucous membranes are moist. Pharynx: Oropharynx is clear. Eyes: Extraocular Movements: Extraocular movements intact. Conjunctiva/sclera: Conjunctivae normal. Pupils: Pupils are equal, round, and reactive to light. Cardiovascular: Rate and Rhythm: Normal rate and regular rhythm. Pulses: Normal pulses. Heart sounds: Normal heart sounds. No murmur heard. No friction rub. No gallop. Pulmonary: Effort: Pulmonary effort is normal. No respiratory distress. Breath sounds: Normal breath sounds. No stridor. No wheezing, rhonchi or rales. Chest: Chest wall: No tenderness. Abdominal: General: Abdomen is flat. Bowel sounds are normal. There is no distension. Palpations: Abdomen is soft. There is no mass. Tenderness: There is no abdominal tenderness. There is no guarding or rebound. Hernia: No hernia is present. Musculoskeletal: General: No swelling, deformity or signs of injury. Normal range of motion. Cervical back: Normal range of motion. Tenderness present. Right lower leg: No edema. Left lower leg: No edema. Lymphadenopathy: Cervical: No cervical adenopathy. Skin: General: Skin is warm. Neurological: General: No focal deficit present. Mental Status: She is alert and oriented to person, place, and time. Mental status is at baseline. Psychiatric: Mood and Affect: Mood normal. Behavior: Behavior normal. Thought Content: Thought content normal. Judgment: Judgment normal. Medications: Scheduled Medications: potassium chloride 40 mEq Oral Once sodium chloride flush 5-40 mL IntraVENous 2 times per day acetaminophen 650 mg Oral Q6H sennosides-docusate sodium 1 tablet Oral BID gabapentin 200 mg Oral TID lidocaine 1 patch TransDERmal Daily valproic acid 250 mg Oral BID fluconazole 200 mg Oral Daily [Held by provider] lisinopril 10 mg Oral Daily [MAR Hold] levothyroxine 100 mcg Oral Daily [Held by provider] insulin glargine 16 Units SubCUTAneous Daily [Held by provider] aspirin 81 mg Oral Daily nafcillin 2,000 mg IntraVENous Q4H carvedilol 25 mg Oral BID WC sodium chloride flush 5-40 mL IntraVENous 2 times per day [Held by provider] enoxaparin 40 mg SubCUTAneous Daily latanoprost 1 drop Both Eyes Nightly insulin lispro 0-12 Units SubCUTAneous TID WC insulin lispro 0-6 Units SubCUTAneous Nightly Continuous Infusions: sodium chloride sodium chloride 100 mL/hr at 07/08/21 2246 dextrose PRN Medicationssodium chloride flush, 5-40 mL, PRN sodium chloride, , PRN oxyCODONE, 5 mg, Q4H PRN Or oxyCODONE, 10 mg, Q4H PRN morphine, 1 mg, Q4H PRN potassium chloride, 10 mEq, PRN sodium chloride flush, 10 mL, PRN sodium chloride flush, 10 mL, PRN loperamide, 2 mg, 4x Daily PRN sodium chloride flush, 10 mL, PRN tiZANidine, 2 mg, Q8H PRN hydrALAZINE, 10 mg, Q4H PRN sodium chloride flush, 5-40 mL, PRN ondansetron, 4 mg, Q8H PRN Or ondansetron, 4 mg, Q6H PRN [MAR Hold] bisacodyl, 5 mg, Daily PRN sodium chloride flush, 5-40 mL, PRN labetalol, 10 mg, Q4H PRN glucose, 4 tablet, PRN dextrose bolus, 125 mL, PRN Or dextrose bolus, 250 mL, PRN glucagon (rDNA), 1 mg, PRN dextrose, 100 mL/hr, PRN Diagnostic Labs: CBC: Recent Labs 07/07/21 0349 07/07/21 0349 07/08/21 0617 07/08/21 0848 07/09/21 0532 WBC 11.1 -- 11.4* -- 11.5* RBC 3.34* -- 2.51* -- 3.11* HGB 9.2* < > 6.9* 8.1* 8.5* HCT 27.9* < > 21.5* 25.5* 27.9* MCV 83.5 -- 85.7 -- 89.7 RDW 17.2* -- 18.6* -- 19.9* PLT 372 -- 328 -- 434 < > = values in this interval not displayed. BMP: Recent Labs 07/07/21 03407/08/21 0617 07/09/21 0532 NA 140 138 140 K 3.9 2.9* 3.9 CL 106 108* 109* CO2 22 20 20 BUN 8 7 7 CREATININE 0.83 0.83 0.81 BNP: No results for input(s): BNP in the last 72 hours. PT/INR: No results for input(s): PROTIME, INR in the last 72 hours. APTT: No results for input(s): APTT in the last 72 hours. CARDIAC ENZYMES: No results for input(s): CKMB, CKMBINDEX, TROPONINI in the last 72 hours. Invalid input(s): CKTOTAL;3 FASTING LIPID PANEL: Lab Results Component Value Date CHOL 155 06/28/2021 HDL 71 06/28/2021 TRIG 105 06/28/2021 LIVER PROFILE: No results for input(s): AST, ALT, ALB, BILIDIR, BILITOT, ALKPHOS in the last 72 hours. MICROBIOLOGY: Lab Results Component Value Date/Time CULTURE NO GROWTH 12 HOURS 07/08/2021 06:16 AM Imaging: MRI CERVICAL SPINE W WO CONTRAST Result Date: 07/05/2021 Osteomyelitis involving the odontoid process extending into the body of C2 as well as the inferior portion of the clivus. Moderate surrounding inflammation at the C1-C2 articulations compatible with surrounding phlegmon. These changes were similarly present on previous CT of the cervical spine. There is a suspected stable tiny ventral epidural abscess measuring 0.9 x 0.3 cm. Stable moderate narrowing of the spinal canal is identified at the foramen magnum. Mild central canal stenosis and moderate left foraminal stenosis at C6-C7. NM BONE SCAN 3 PHASE Result Date: 07/03/2021 Early and delayed phase activity is seen at the cranial cervical junction, including C2, clivus, occipital condyles/C1 lateral masses. Some considerations include osteomyelitis, inflammatory arthropathy, or metastatic disease. MR could be performed for further study as clinically warranted. XR CERVICAL SPINE FLEXION AND EXTENSION Result Date: 07/03/2021 Abnormal mineralization the craniocervical junction characterized to advantage on recent CT. No findings of dynamic instability with overall limited range of motion and background cervical straightening. MRI BRAIN W WO CONTRAST Result Date: 07/05/2021 Mild cerebral atrophy. Mild chronic small vessel ischemic disease. Remote lacunar infarct in the right cerebellum. No acute brain parenchymal abnormality. There are abnormal signal changes surrounding the clivus and dens consistent with the patient's known osteomyelitis . Refer to the MRI of the cervical spine from 07/04/2021. FL MODIFIED BARIUM SWALLOW W VIDEO Result Date: 07/05/2021 Small amount of aspiration of thin liquid without cough response. Other consistencies show no aspiration or laryngeal penetration but there is pooling in the vallecula and piriform sinuses. Please see separate speech pathology report for full discussion of findings and recommendations. FL MODIFIED BARIUM SWALLOW W VIDEO Result Date: 07/03/2021 Swallowing mechanism grossly within normal limits without evidence of aspiration. Please see separate speech pathology report for full discussion of findings and recommendations. ASSESSMENT & PLAN Assessment and Plan: Principal Problem: Sepsis ([facility]) Active Problems: Altered mental state Encephalitis Encephalopathy CIDP (chronic inflammatory demyelinating polyneuropathy) ([facility]) Bacteremia Hypothyroidism Hypokalemia Type 2 diabetes mellitus with diabetic polyneuropathy ([facility]) Primary hypertension Upper GI bleed Non-intractable vomiting Unintentional weight loss Acute metabolic encephalopathy MSSA (methicillin susceptible Staphylococcus aureus) septicemia ([facility]) CRP elevated Bandemia Allergy to multiple antibiotics Pyogenic inflammation of bone ([facility]) Acute intractable headache Acute osteomyelitis of cervical spine (HCC) 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 * Sepsis with MSSA bacteremia; osteomyelitis of C2: -continu Nafcillin 2 g q 4 h. Stop date 07-29-21 per ID -Repeat blood cultures positive -echo normal. EF > 55%, no valvular abnormalities, no vegetations. - Erosive changes at craniocervical junction which may be related to arthritis or osteomyelitis by CT cervical spine 06-29-21 -left foot ulceration; Podiatry consulted for concern for osteomyelitis and possible source of MSSA bacteremia -XR left foot negative for osteomyelitis - CT chest showed right upper lobe pulmonary nodule -resp viral panel negative - Bone scan concerning for c1-c2 osteomyelitis osteomyelitis C1-C2 with epidural abscess Neurosurgery on board MRI cervical spine and brain confirms today small epidural abscess at C1/2 level with compression of the brainstem spinal cord junction. s/p C1-2 laminectomy, C2 rhizotomy 07/06/2021. Alan esophagitis: On EGD 07/02/2021. On Diflucan 200 mg daily for 14 days. GI signed off. Hypothyroidism: TSH low. Levothyroxine dose decreased from 112 mcg to 100 mcg daily Diabetes Mellitus type II: Medium dose ISS Hypoglycemia protocol Glucose checks q4 Essential hypertension: BP running soft overnight.On Coreg and lisinopril. Hold antihypertensives. Elevated troponins: Downtrended likely type II AL Hypokalemia: Repeat potassium level and replace if needed Left Vocal cord paralysis: Ongoing x 1 month. ENT on board. Plan for injection laryngoplasty for voice/swallowing improvement at some point. Passed swallow study. Diet: Easy to chew DVT ppx : Lovenox held GI ppx: None PT/OT/SW: Consulted Discharge Planning: In process Clark Iglesias MD Internal Medicine Resident, PGY-1 [facility]; [place], [place] 7:13 AM 07/09/2021 Please note that part of this chart was generated using voice recognition dictation software. Although every effort was made to ensure the accuracy of this automated dampener, some errors in dampener may have occurred. Associated attestation - Johnny Robledo MD - 07/09/2021 3:25 PM EDT Attending Supervising Physician s Attestation Statement I have seen and examined Meg Georges and the coffey elements of all parts of the encounter have been performed by me. I agree with the assessment, plan and orders as documented by the Advanced Practice Provider. I discussed the findings and plans with the resident physician and agree as documented in their note . In addition to the pertinent positives and negatives as stated within HPI and the review of systems as documented in the notes, all other systems were reviewed when able to and are reported negative. Additional Comments: no issues overnight. Drain in place, management per surgery. Repeat cultures remain negative. Antibiotics per ID. Dc planning to rehab when cleared by all services Neurosurgery NATE/Resident Daily Progress Note Chief Complaint Patient presents with Altered Mental Status 07/08/2021 11:09 AM Chart reviewed. No acute events overnight. No new complaints. Pain well controlled. Stood at bedside today with therapy but states she was dizzy so she sat back down. Meade cath in place. Tolerating oral diet. Afebrile. Vitals: 07/07/21 2000 07/08/21 0000 07/08/21 0400 07/08/21 0931 BP: 110/72 (!) 93/52 (!) 101/45 Pulse: 88 80 78 88 Resp: 24 14 17 Temp: 98.5 F (36.9 C) 98.2 F (36.8 C) TempSrc: Oral Oral SpO2: 99% 100% 100% 100% Weight: 157 lb 3.2 oz (71.3 kg) Height: PE: AOx3 Motor L deltoid 5/5; R deltoid 5/5 L biceps 5/5; R biceps 5/5 L triceps 5/5; R triceps 5/5 L wrist extension 5/5; R wrist extension 5/5 L intrinsics 5/5; R intrinsics 5/5 L iliopsoas 5/5 , R iliopsoas 5/5 L quadriceps 5/5; R quadriceps 5/5 L Dorsiflexion 4/5; R dorsiflexion 4/5 L Plantarflexion 2/5; R plantarflexion 1/5 Sensation intact Drain output 0 ml/12h Incision posterior cervical dressing intact Lab Results Component Value Date WBC 11.4 (H) 07/08/2021 HGB 8.1 (L) 07/08/2021 HCT 25.5 (L) 07/08/2021 PLT 328 07/08/2021 CHOL 155 06/28/2021 TRIG 105 06/28/2021 HDL 71 06/28/2021 ALT 19 06/28/2021 AST 19 06/28/2021 NA 138 07/08/2021 K 2.9 (LL) 07/08/2021 CL 108 (H) 07/08/2021 CREATININE 0.83 07/08/2021 BUN 7 07/08/2021 CO2 20 07/08/2021 TSH 0.15 (L) 06/28/2021 INR 1.2 06/28/2021 LABA1C 9.4 (H) 06/28/2021 LABMICR 7 06/25/2013 CRP 131.5 (H) 07/08/2021 SEDRATE 120 (H) 06/28/2021 Culture, Anaerobic and Aerobic [[id number]] Collected: 07/06/212140 Updated: 07/08/21820 Specimen Type: Swab Specimen Source: Spine Specimen Description .SPINE Direct Exam NO NEUTROPHILS SEEN NO BACTERIA SEEN Culture NO GROWTH 2 DAYS A/P 56 y.o. female who presents with epidural abscess of C1-2, compression of cervical medullary junction POD#2 posterior C1 laminectomy, left C2 rhizotomy - aspen cervical collar while out of bed - activity as tolerated, PT and OT eval - f/u cultures from OR - pain control, bowel regimen - continue drain, monitor output - encourage IS Please contact neurosurgery with any changes in patients neurologic status. Kam Loera, BRIDGER 07/08/21 11:09 AM Associated attestation - Jose Alfredo Patiño DO - 07/08/2021 2:06 PM EDT I have seen and examined the patient independently. I reviewed all laboratory and imaging studies that are relevant. I agree with the NATE note with the below addendum. Stood some yesterday. Intermittently coughing per nursing Noted cough only after liquid consumption and solid food +slight hoarseness Full strength except b/l DF 1 and PF 4 Occipitoatlantoaxial junction pannus with posterior displacement of atlantooccipital junction S/p C1/2 lami, C2 rhizotomy L Collar out of bed Need to adhere to soft diet Pain control Mobilize F/u cultures. Will keep drain considering concern for infection Jose Alfredo Patiño DO Neurosurgery O: [phone] C: [phone] Physical Therapy Facility/Department: [address] [place]EP [place] Physical Therapy Reassessment Name: Meg Georges : 1965 Date of Service: 07/08/2021 Date of Procedure: 07/06/2021 Pre-Op Diagnosis: EPIDURAL ABSCESS of C1-2, compression of cervical medullary junction Post-Op Diagnosis: epidural plegmon/abscess, compression of cervical medullary junction Procedure(s): POSTERIOR CERVICAL C1 LAMINECTOMY LEFT C2 RHIZOTOMY EXPLORATION OF EPIDURAL PHLEGMON Discharge Recommendations: Patient would benefit from continued therapy after discharge PT Equipment Recommendations Mobility Devices: Walker Walker: Rolling Patient Diagnosis(es): The primary encounter diagnosis was Stupor. Diagnoses of Encephalitis and Acute osteomyelitis of cervical spine (HCC) were also pertinent to this visit. Past Medical History: has a past medical history of Asthma, Cardiac murmur, Diabetes mellitus (HCC), GERD (gastroesophageal reflux disease), Hyperlipidemia, Hypertension, Neuropathy, Radiculopathy, Spinal stenosis, and Thyroid disease. Past Surgical History: has a past surgical history that includes Cholecystectomy; shoulder surgery; Achilles tendon surgery; back surgery; Upper gastrointestinal endoscopy (N/A, 07/02/2021); Eye surgery; and laminectomy (07/06/2021). Assessment Body Structures, Functions, Activity Limitations Requiring Skilled Therapeutic Intervention: Decreased functional mobility ;Decreased endurance;Decreased ROM;Decreased strength;Decreased safe awareness;Decreased balance;Decreased cognition;Vestibular Impairment;Decreased sensation;Decreased coordination;Increased pain Assessment: Unable to ambulate away from the bed due to limitations of poor postural control, foot drop, cannot right herself with dorsiflexors, in cervical collar so she cannot use vision to assist with lack of proprioception, vertigo, pain in neck/back of head. At maximum, she ambulated with mod assist, 4' using the bed to lean against. Patient will need further PT to regain the ability to mobilize and care for herself. Therapy Prognosis: Good Decision Making: Medium Complexity Clinical Presentation: evolving Requires PT Follow-Up: Yes Activity Tolerance Activity Tolerance Comments: Limited by vertigo Plan Plan Plan: 6-7 times per week Current Treatment Recommendations: Strengthening,ROM,Gait training,Balance training,Stair training,Functional mobility training,Transfer training,Endurance training,Safety education & training,Equipment evaluation, education, & procurement,Therapeutic activities,Cognitive/Perceptual training,Patient/Caregiver education & training,Neuromuscular re-education,Vestibular rehab Safety Devices Type of Devices: Gait belt,Bed alarm in place,Call light within reach,Left in bed,Nurse notified,All fall risk precautions in place Restraints Restraints Initially in Place: No Restrictions Restrictions/Precautions Restrictions/Precautions: Fall Risk,Weight Bearing Required Braces or Orthoses?: Yes Lower Extremity Weight Bearing Restrictions Left Lower Extremity Weight Bearing: Weight Bearing As Tolerated (Has a left heel decubitus ulcer. Use surgical shoe.) Required Braces or Orthoses Cervical: c-collar (C collar on while out of bed. OK to remove while resting in bed. Today, patient is resting in bed in her cervical collar.) Other position/activity restrictions: Had her C2 rhizotomy and C1 laminectomy due to clivus and dens osteomyelitis on 07/06. MD progress notes indicate needs to mobilize . [place] thick liquids. Documentation of vocal cord paralysis. Dx CIDP (demyelinating disease). Bilateral foot drop. Subjective General Chart Reviewed: Yes Patient assessed for rehabilitation services?: Yes Family / Caregiver Present: No Follows Commands: Within Functional Limits Subjective Subjective: Pain improved. She says it was less than she thought it would be. in posterior neck/head Social/Functional History Social/Functional History Lives With: Alone Type of Home: House Home Layout: One level,Performs ADL's on one level Home Access: Stairs to enter with rails,Ramped entrance Entrance Stairs - Number of Steps: 3-4, can use the ramp if needed to enter Entrance Stairs - Rails: Both Bathroom Shower/Tub: Walk-in shower Bathroom Toilet: Handicap height Bathroom Equipment: Grab bars in shower,Shower chair,Toilet raiser (Uses sink for support during transfers) Bathroom Accessibility: Walker accessible Home Equipment: Walker, rolling,Cane (Has been using RW since she has been at SNF, prior to she was not using AD) Has the patient had two or more falls in the past year or any fall with injury in the past year?: No Receives Help From: Family,Friend(s) ADL Assistance: Independent (Prior to May completly IND,but at SNF reports needed assistance for self-care but was not recieving the assistance) Homemaking Assistance: Independent Homemaking Responsibilities: Yes Meal Prep Responsibility: Primary Laundry Responsibility: Primary Cleaning Responsibility: Primary Shopping Responsibility: Primary Ambulation Assistance: Independent Transfer Assistance: Independent Active Computer Forensics Examiner: Yes Mode of Transportation: Car 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 Cognition Orientation Orientation Level: Oriented to person;Oriented X4;Oriented to situation;Oriented to place;Oriented to time Cognition Overall Cognitive Status: Exceptions Following Commands: Follows multistep commands with increased time;Follows multistep commands with repitition Attention Span: Attends with cues to redirect Memory: Decreased short term memory;Decreased recall of recent events Safety Judgement: Decreased awareness of need for safety;Decreased awareness of need for assistance Problem Solving: Assistance required to identify errors made;Assistance required to generate solutions Insights: Decreased awareness of deficits Initiation: Requires cues for some Sequencing: Requires cues for some Objective Pulse: 88 SpO2: 100 % O2 Device: None (Room air) Observation/Palpation Observation: During standing and attempts to ambulate, left horizontal beating nystagmus. Has a drain in her posterior neck. In cervical collar. Has prior foot drop with obvious atrophy of calf musculature. Left heel decub. Bandage on back of skull that may be from pressure- see nursing notes. Numb to light touch up to proximal leg. She is scratching at her left lateral thigh with jagged nails. Fire Protection Engineering Technician rubbed some lotion on the area and instructed to try not to scratch to keep from opening up another place for infection due to her jagged nails. Strength RLE R Hip Flexion: 3-/5;At least R Hip ABduction: 3-/5;At least R Knee Flexion: 3+/5 R Knee Extension: 3+/5 R Ankle Dorsiflexion: 2+/5 R Ankle Plantar flexion: 2+/5 Strength LLE Strength LLE: Exception L Hip Flexion: 3-/5;At least L Knee Flexion: 3-/5;At least L Knee Extension: 3+/5 L Ankle Dorsiflexion: 2+/5 L Ankle Plantar Flexion: 2+/5 Bed mobility Supine to Sit: Minimal assistance Sit to Supine: Minimal assistance Transfers Sit to Stand: Minimal Assistance Stand to sit: Minimal Assistance Ambulation Surface: level tile Device: Rolling Walker Assistance: Moderate assistance Gait Deviations: Slow Barbara;Shuffles;Decreased step length Distance: 4' along edge of bed Comments: Many limitations to gait. Patient has foot drop, cannot effectively right herself against posterior losses of balance. Neuropathy prevents her feeling her feet to move them. Because of the c collar, she must bend from the hips and waist to see her feet. This caused vertigo, unfatiguing for approx 4 minutes, left horizontal beating. Patient verbalized being too afraid to move away from the bed to the chair. Additionally, she's too unsteady. Stairs/Curb Stairs?: No Balance Sitting - Static: Fair Sitting - Dynamic: Fair Standing - Static: Fair;- Standing - Dynamic: Poor;+ Comments: Balance limited by vertigo and inability to right herself from the ankles with foot drop and dorsiflexor weakness A/AROM Exercises: Ankle pumps with ability to move through 1/5 normal motion actively, heel slides, assisted SLR. AM-PAC Score [facility] Inpatient Mobility Raw Score : 14 (07/08/21915) [facility] Inpatient T-Scale Score : 38.1 (07/08/21915) Mobility Inpatient CMS 0-100% Score: 61.29 (07/08/21915) Mobility Inpatient [facility] G-Code Modifier : CL (07/08/21915) Goals Short Term Goals Time Frame for Short term goals: 14 Short term goal 1: Pt to perform bed mobility independently Short term goal 2: Demonstrate functional transfers with supervision Short term goal 3: Ambulate 150ft w/ no AD with supervision Short term goal 4: Tolerate 30 mintues of therapy to demo increased endurance Patient Goals Patient goals : To go home Education Patient Education Education Given To: Patient Education Provided: Role of Therapy;Plan of Care;Transfer Training;Fall Prevention Strategies Education Method: Demonstration Education Outcome: Verbalized understanding;Demonstrated understanding Therapy Time Individual Concurrent Group Co-treatment Time In 0845 Time Out 0925 Minutes 40 Timed Code Treatment Minutes: 30 Minutes Edel Chapman PT Images from the original note were not included. [facility] Internal Medicine Teaching Residency Program Inpatient Daily Progress Note __ Patient: Meg Georges Date of : 1965 Acct: [id number] Room: [facility]- Admit date: 06/28/2021 Today's date: 07/08/21 Number of days in the hospital: 10 SUBJECTIVE Admitting Diagnosis: Sepsis (HCC) CC: AMS - Pt examined at bedside. Chart & results reviewed. - No acute events overnight - A&OX3 - Mild neck pain but much improved - Blood Cx neg thus far - Hgb 6.9 > hypotensive and dizzy - Afebrile - VSS Plan for today: - Repeat H&H - Watch blood Cx for growth - Continue Abx per ID - Continue to work with PT/OT - EMIR deferred for now ROS: Constitutional: negative for chills, fevers, sweats Respiratory: negative for cough, dyspnea on exertion, hemoptysis, shortness of breath, wheezing Cardiovascular: negative for chest pain, chest pressure/discomfort, lower extremity edema, palpitations Gastrointestinal: negative for abdominal pain, constipation, diarrhea, nausea, vomiting Neurological: negative for dizziness, headache BRIEF HISTORY The patient is a pleasant 56 y.o. female presents with a chief complaint of altered mentation. 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 Presented to ED from 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, found confused outside. Imaging negative. She complains of headache 11/26, not sure how she got to ED. Denies fever, vomiting, chest kristan, cough, SOB, abdominal pain. States last BM yesterday soft. Patient somnolent but arousable, follows command, hypertensive BP as high as 202/105, HR 110, on room air. Significant labs include glycemia 254, wbc 22. Lumbar tap done. Not concerning for acute meningitis. OBJECTIVE Vital Signs: BP (!) 101/45 Pulse 78 Temp 98.2 F (36.8 C) (Oral) Resp 17 Ht 5' 5 (1.651 m) Wt 157 lb 3.2 oz (71.3 kg) LMP 12/02/2011 SpO2 100% BMI 26.16 kg/m Temp (24hrs), Av.9 F (36.6 C), Min:95.9 F (35.5 C), Max:98.9 F (37.2 C) In: 100 Out: 450 [Urine:450] Physical Exam: Physical Exam Vitals and nursing note reviewed. Constitutional: Appearance: Normal appearance. HENT: Head: Normocephalic and atraumatic. Nose: Nose normal. Mouth/Throat: Mouth: Mucous membranes are moist. Pharynx: Oropharynx is clear. Eyes: Extraocular Movements: Extraocular movements intact. Conjunctiva/sclera: Conjunctivae normal. Pupils: Pupils are equal, round, and reactive to light. Cardiovascular: Rate and Rhythm: Normal rate and regular rhythm. Pulses: Normal pulses. Heart sounds: Normal heart sounds. No murmur heard. No friction rub. No gallop. Pulmonary: Effort: Pulmonary effort is normal. No respiratory distress. Breath sounds: Normal breath sounds. No stridor. No wheezing, rhonchi or rales. Chest: Chest wall: No tenderness. Abdominal: General: Abdomen is flat. Bowel sounds are normal. There is no distension. Palpations: Abdomen is soft. There is no mass. Tenderness: There is no abdominal tenderness. There is no guarding or rebound. Hernia: No hernia is present. Musculoskeletal: General: No swelling, deformity or signs of injury. Normal range of motion. Cervical back: Normal range of motion. Tenderness present. Right lower leg: No edema. Left lower leg: No edema. Lymphadenopathy: Cervical: No cervical adenopathy. Skin: General: Skin is warm. Neurological: General: No focal deficit present. Mental Status: She is alert and oriented to person, place, and time. Mental status is at baseline. Psychiatric: Mood and Affect: Mood normal. Behavior: Behavior normal. Thought Content: Thought content normal. Judgment: Judgment normal. Medications: Scheduled Medications: potassium chloride 10 mEq IntraVENous Q1H sodium chloride flush 5-40 mL IntraVENous 2 times per day acetaminophen 650 mg Oral Q6H sennosides-docusate sodium 1 tablet Oral BID gabapentin 200 mg Oral TID lidocaine 1 patch TransDERmal Daily valproic acid 250 mg Oral BID fluconazole 200 mg Oral Daily [Held by provider] lisinopril 10 mg Oral Daily [MAR Hold] levothyroxine 100 mcg Oral Daily [Held by provider] insulin glargine 16 Units SubCUTAneous Daily [Held by provider] aspirin 81 mg Oral Daily nafcillin 2,000 mg IntraVENous Q4H carvedilol 25 mg Oral BID WC sodium chloride flush 5-40 mL IntraVENous 2 times per day [Held by provider] enoxaparin 40 mg SubCUTAneous Daily latanoprost 1 drop Both Eyes Nightly insulin lispro 0-12 Units SubCUTAneous TID insulin lispro 0-6 Units SubCUTAneous Nightly Continuous Infusions: sodium chloride sodium chloride 100 mL/hr at 07/07/212035 dextrose PRN Medicationssodium chloride flush, 5-40 mL, PRN sodium chloride, , PRN oxyCODONE, 5 mg, Q4H PRN Or oxyCODONE, 10 mg, Q4H PRN morphine, 1 mg, Q4H PRN potassium chloride, 10 mEq, PRN sodium chloride flush, 10 mL, PRN sodium chloride flush, 10 mL, PRN loperamide, 2 mg, 4x Daily PRN sodium chloride flush, 10 mL, PRN tiZANidine, 2 mg, Q8H PRN hydrALAZINE, 10 mg, Q4H PRN sodium chloride flush, 5-40 mL, PRN ondansetron, 4 mg, Q8H PRN Or ondansetron, 4 mg, Q6H PRN [MAR Hold] bisacodyl, 5 mg, Daily PRN sodium chloride flush, 5-40 mL, PRN labetalol, 10 mg, Q4H PRN glucose, 4 tablet, PRN dextrose bolus, 125 mL, PRN Or dextrose bolus, 250 mL, PRN glucagon (rDNA), 1 mg, PRN dextrose, 100 mL/hr, PRN Diagnostic Labs: CBC: Recent Labs 07/06/2175107/06/21 16407/06/21192107/07/21 03407/08/21 0617 WBC 7.7 -- -- 11.1 11.4* RBC 3.27* -- -- 3.34* 2.51* HGB 8.5* < > 9.9* 9.2* 6.9* HCT 27.5* < > 30.6* 27.9* 21.5* MCV 84.1 -- -- 83.5 85.7 RDW 18.2* -- -- 17.2* 18.6* PLT 378 -- -- 372 328 < > = values in this interval not displayed. BMP: Recent Labs 07/06/2175107/06/21164007/06/21192107/07/21 03407/08/21 0617 NA 133* < > 140 140 138 K 3.2* < > 3.7 3.9 2.9* CL 102 -- -- 106 108* CO2 23 -- -- 22 20 BUN 7 -- -- 8 7 CREATININE 0.90 -- -- 0.83 0.83 < > = values in this interval not displayed. BNP: No results for input(s): BNP in the last 72 hours. PT/INR: No results for input(s): PROTIME, INR in the last 72 hours. APTT: No results for input(s): APTT in the last 72 hours. CARDIAC ENZYMES: No results for input(s): CKMB, CKMBINDEX, TROPONINI in the last 72 hours. Invalid input(s): CKTOTAL;3 FASTING LIPID PANEL: Lab Results Component Value Date CHOL 155 06/28/2021 HDL 71 06/28/2021 TRIG 105 06/28/2021 LIVER PROFILE: No results for input(s): AST, ALT, ALB, BILIDIR, BILITOT, ALKPHOS in the last 72 hours. MICROBIOLOGY: Lab Results Component Value Date/Time CULTURE NO GROWTH 12 HOURS 07/07/2021 07:57 AM Imaging: MRI CERVICAL SPINE W WO CONTRAST Result Date: 07/05/2021 Osteomyelitis involving the odontoid process extending into the body of C2 as well as the inferior portion of the clivus. Moderate surrounding inflammation at the C1-C2 articulations compatible with surrounding phlegmon. These changes were similarly present on previous CT of the cervical spine. There is a suspected stable tiny ventral epidural abscess measuring 0.9 x 0.3 cm. Stable moderate narrowing of the spinal canal is identified at the foramen magnum. Mild central canal stenosis and moderate left foraminal stenosis at C6-C7. NM BONE SCAN 3 PHASE Result Date: 07/03/2021 Early and delayed phase activity is seen at the cranial cervical junction, including C2, clivus, occipital condyles/C1 lateral masses. Some considerations include osteomyelitis, inflammatory arthropathy, or metastatic disease. MR could be performed for further study as clinically warranted. XR CERVICAL SPINE FLEXION AND EXTENSION Result Date: 07/03/2021 Abnormal mineralization the craniocervical junction characterized to advantage on recent CT. No findings of dynamic instability with overall limited range of motion and background cervical straightening. MRI BRAIN W WO CONTRAST Result Date: 07/05/2021 Mild cerebral atrophy. Mild chronic small vessel ischemic disease. Remote lacunar infarct in the right cerebellum. No acute brain parenchymal abnormality. There are abnormal signal changes surrounding the clivus and dens consistent with the patient's known osteomyelitis . Refer to the MRI of the cervical spine from 07/04/2021. FL MODIFIED BARIUM SWALLOW W VIDEO Result Date: 07/05/2021 Small amount of aspiration of thin liquid without cough response. Other consistencies show no aspiration or laryngeal penetration but there is pooling in the vallecula and piriform sinuses. Please see separate speech pathology report for full discussion of findings and recommendations. FL MODIFIED BARIUM SWALLOW W VIDEO Result Date: 07/03/2021 Swallowing mechanism grossly within normal limits without evidence of aspiration. Please see separate speech pathology report for full discussion of findings and recommendations. ASSESSMENT & PLAN Assessment and Plan: Principal Problem: Sepsis (HCC) Active Problems: Altered mental state Encephalitis Encephalopathy CIDP (chronic inflammatory demyelinating polyneuropathy) ([facility]) Bacteremia Hypothyroidism Hypokalemia Type 2 diabetes mellitus with diabetic polyneuropathy (HCC) Primary hypertension Upper GI bleed Non-intractable vomiting Unintentional weight loss Acute metabolic encephalopathy MSSA (methicillin susceptible Staphylococcus aureus) septicemia ([facility]) CRP elevated Bandemia Allergy to multiple antibiotics Pyogenic inflammation of bone (HCC) Acute intractable headache Acute osteomyelitis of cervical spine ([facility]) 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 * Sepsis with MSSA bacteremia; osteomyelitis of C2: -continu Nafcillin 2 g q 4 h. Stop date 07-29-21 per ID -Repeat blood cultures positive -echo normal. EF > 55%, no valvular abnormalities, no vegetations. - Erosive changes at craniocervical junction which may be related to arthritis or osteomyelitis by CT cervical spine 06-29-21 -left foot ulceration; Podiatry consulted for concern for osteomyelitis and possible source of MSSA bacteremia -XR left foot negative for osteomyelitis - CT chest showed right upper lobe pulmonary nodule -resp viral panel negative - Bone scan concerning for c1-c2 osteomyelitis osteomyelitis C1-C2 with epidural abscess Neurosurgery on board MRI cervical spine and brain confirms today small epidural abscess at C1/2 level with compression of the brainstem spinal cord junction. s/p C1-2 laminectomy, C2 rhizotomy 07/06/2021. Alan esophagitis: On EGD 07/02/2021. On Diflucan 200 mg daily for 14 days. GI signed off. Hypothyroidism: TSH low. Levothyroxine dose decreased from 112 mcg to 100 mcg daily Diabetes Mellitus type II: Medium dose ISS Hypoglycemia protocol Glucose checks q4 Essential hypertension: BP running soft overnight.On Coreg and lisinopril. Hold antihypertensives. Elevated troponins: Downtrended likely type II AL Hypokalemia: Repeat potassium level and replace if needed Left Vocal cord paralysis: Ongoing x 1 month. ENT on board. Plan for injection laryngoplasty for voice/swallowing improvement at some point. Passed swallow study. Diet: Easy to chew DVT ppx : Lovenox held GI ppx: None PT/OT/SW: Consulted Discharge Planning: In process Clark Iglesias MD Internal Medicine Resident, PGY-1 [facility]; [place], [place] 7:24 AM 07/08/2021 Please note that part of this chart was generated using voice recognition dictation software. Although every effort was made to ensure the accuracy of this automated dampener, some errors in dampener may have occurred. Associated attestation - Johnny Robledo MD - 07/08/2021 2:03 PM EDT Attending Supervising Physician s Attestation Statement I have seen and examined Meg Georges and the coffey elements of all parts of the encounter have been performed by me. I agree with the assessment, plan and orders as documented by the Advanced Practice Provider. I discussed the findings and plans with the resident physician and agree as documented in their note . In addition to the pertinent positives and negatives as stated within HPI and the review of systems as documented in the notes, all other systems were reviewed when able to and are reported negative. Additional Comments: pain tolerable, repeat cultures negative so far. Working on placement Images from the original note were not included. [facility] - Infectious diseases evaluation admission date 06/28/2021 reason for consultation: Sepsis with staph bacteremia Impression : Current: MSSA septicemia CRP elevation cerv spine osteomyelitis - erosions on CT and b scan bandemia Acute metabolic encephalopathy- resolving -LP neg CIDP chronic IVIG therapy - immunosuppressdUlcer on the left foot Allergy to keflex and avelox - tolerates PNC Other: Hypothyroidism Diabetes mellitus type 2 Essential hypertension Elevated troponin CIDP on IVIG infusions every 2 weeks Discussion / summary of stay / plan of care Recommendations Acute encephalopathy from sepsis - resolved - LP neg MSSA septicemia -persistent till 07/04 Echo neg for vegetation EMIR deferred for now BC repeat till neg Nafcillin 2 g q 4 - watch WBC Cough - neg CT chest for septic emboli Neck new pain -1 Mo old - B scan / CT/ MRI + OM and epidural anterior abscess 05/06 cerv spine surg alan esophagitis on EGD 07/02 - fluconazole 200 daily till 07/12 CRP on the rise despite tx Infection Control Recommendations [place] Precautions Contact Isolation Antimicrobial Stewardship Recommendations Simplification of therapy Targeted therapy History of Present Illness: Initial history: Meg Georges is a 56 y.o.-year-old female presented to the ED for altered mental status. Patient is currently admitted under neurology service. Patient presented from a 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 after an episode of confusion overnight where she was found wandering outside her 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. She had CT head done at outside facility which did not show any acute changes, telestroke was consulted for the concern of confusion, they recommended transfer to [facility] for MRI of the brain. BC SA MSSA and LP neg CRP elevated and WBc up - creat normal 06/29 mentally recovered Neck pain x 1 mo Left sole callus was infected x 2 months ago at the CT She gets her IvIg through a periph that gets pulled each time - no picc outpt Hoarse x some time wo reason Cough x 1 month Interval changes 07/07/2021 Patient Vitals for the past 8 hrs: BP Temp Temp src Pulse Resp SpO2 07/07/211999 110/72 98.5 F (36.9 C) Oral 88 24 99 % 07/07/21 1607 (!) 125/58 98.9 F (37.2 C) 89 16 98 % 07/07 Neck pain still - post surgery to the neck 07/06 POSTERIOR CERVICAL C1 LAMINECTOMY. LEFT C2 RHIZOTOMY, EXPLORATION OF EPIDURAL PHLEGMON Drain w sero sang fluid still present Echo EF55 and no vegetation No fever - ox 3 07/05: CRP-186.3 on the rise still All BC so far + MSSA MRI C soine shows C spine epidural anterior abscess w OM - No weakness =but severe neck pain and CRP on the rise, BC all still +, hence suggest sx drainage if feasible 07/04:EGD 07/02 + alan esophagitis - starting fluconazole Still neck pain - MRI deferred due to metal in eye -bone scan ordered Still hoarse a little though better Labs reviewed 07/03/21 Neck pain ++ B scan + mets or infection - unclear CT c spine w erosions of the bone, infection or mets BC still + through 07/02 Did not meet criteria for the SA bacteremia research study Summary of relevant labs: Labs: CRP 150.7 - 191 - 186 procalcitonin 0.66, WBC-15 - 10 Micro: 06/29 -5/ - 18 Blood Culture MSSA 06/29 LP -WBC 2 - RBC 1 - cx pend Imaging: MRI C spine Osteomyelitis involving the odontoid process extending into the body of C2 as well as the inferior portion of the clivus. Moderate surrounding inflammation at the C1-C2 articulations compatible with surrounding phlegmon. These changes were similarly present on previous CT of the cervical spine. There is a suspected stable tiny ventral epidural abscess measuring 0.9 x 0.3 cm. Stable moderate narrowing of the spinal canal is identified at the foramen magnum. Mild central canal stenosis and moderate left foraminal stenosis at C6-C7. I have personally reviewed the past medical history, past surgical history, medications, social history, and family history, and I haveupdated the database accordingly. Allergies: Moxifloxacin, Peg 3350-electrolytes, Tapentadol, Avelox [moxifloxacin hydrochloride], and Cephalexin Review of Systems: Review of Systems Constitutional: Negative for activity change. HENT: Negative for congestion. Hoarse Eyes: Negative for pain and discharge. Respiratory: Negative for apnea. Cardiovascular: Negative for chest pain. Gastrointestinal: Negative for abdominal distention. Endocrine: Negative for heat intolerance and polydipsia. Genitourinary: Negative for dysuria. Musculoskeletal: Positive for neck pain. Skin: Negative for color change. Rash: left sole under MTS head 1. Allergic/Immunologic: Negative for immunocompromised state. Neurological: Negative for dizziness, light-headedness and headaches. Hematological: Negative for adenopathy. Psychiatric/Behavioral: Negative for agitation. Physical Examination : Physical Exam Constitutional: Appearance: Normal appearance. She is not ill-appearing. HENT: Head: Normocephalic and atraumatic. Nose: Nose normal. Mouth/Throat: Mouth: Mucous membranes are moist. Eyes: Conjunctiva/sclera: Conjunctivae normal. Pupils: Pupils are equal, round, and reactive to light. Cardiovascular: Rate and Rhythm: Normal rate and regular rhythm. Heart sounds: Normal heart sounds. Pulmonary: Effort: No respiratory distress. Breath sounds: Normal breath sounds. Abdominal: General: There is no distension. Palpations: Abdomen is soft. Tenderness: There is no abdominal tenderness. Genitourinary: Comments: Urine chanda Musculoskeletal: General: No swelling, tenderness, deformity or signs of injury. Cervical back: No rigidity. Right lower leg: No edema. Skin: Coloration: Skin is not jaundiced or pale. Findings: No bruising or erythema. Neurological: General: No focal deficit present. Mental Status: She is alert and oriented to person, place, and time. Cranial Nerves: No cranial nerve deficit. Psychiatric: Mood and Affect: Mood normal. Past Medical History: Past Medical History: Diagnosis Date Asthma Cardiac murmur Diabetes mellitus (HCC) GERD (gastroesophageal reflux disease) Hyperlipidemia Hypertension Neuropathy Radiculopathy Spinal stenosis Thyroid disease Past Surgical History: Past Surgical History: Procedure Laterality Date ACHILLES TENDON SURGERY left BACK SURGERY L 4 and 5 1995, 1996 CHOLECYSTECTOMY EYE SURGERY Baerveldt 250 shunt for open angle glaucoma. MRI compatible- device is all silicone LAMINECTOMY 07/06/2021 Posterior C1, LEFT C2 RHIZOTOMY, EXPLORATION OF EPIDURAL PHLEGMON SHOULDER SURGERY right UPPER GASTROINTESTINAL ENDOSCOPY N/A 07/02/2021 EGD ESOPHAGOGASTRODUODENOSCOPY performed by Hari Wagner MD at [facility] Endoscopy Medications: sodium chloride flush 5-40 mL IntraVENous 2 times per day acetaminophen 650 mg Oral Q6H sennosides-docusate sodium 1 tablet Oral BID gabapentin 200 mg Oral TID lidocaine 1 patch TransDERmal Daily valproic acid 250 mg Oral BID fluconazole 200 mg Oral Daily [Held by provider] lisinopril 10 mg Oral Daily [MAR Hold] levothyroxine 100 mcg Oral Daily [Held by provider] insulin glargine 16 Units SubCUTAneous Daily [Held by provider] aspirin 81 mg Oral Daily nafcillin 2,000 mg IntraVENous Q4H carvedilol 25 mg Oral BID WC sodium chloride flush 5-40 mL IntraVENous 2 times per day [Held by provider] enoxaparin 40 mg SubCUTAneous Daily latanoprost 1 drop Both Eyes Nightly insulin lispro 0-12 Units SubCUTAneous TID WC insulin lispro 0-6 Units SubCUTAneous Nightly Social History: Social History Socioeconomic History Marital status: Spouse name: Not on file Number of children: Not on file Years of education: Not on file Highest education level: Not on file Occupational History Not on file Tobacco Use Smoking status: Former Smoker Years: 20.00 Types: Cigarettes Quit date: 10/06/1995 Years since quittin.7 Smokeless tobacco: Never Used Substance and Sexual Activity Alcohol use: No Drug use: No Sexual activity: Not on file Other Topics Concern Not on file Social History Narrative Not on file Social Determinants of Health Financial Resource Strain: Difficulty of Paying Living Expenses: Not on file Food Insecurity: Worried About Running Out of Food in the Last Year: Not on file Ran Out of Food in the Last Year: Not on file Transportation Needs: Lack of Transportation (Medical): Not on file Lack of Transportation (Non-Medical): Not on file Physical Activity: Days of Exercise per Week: Not on file Minutes of Exercise per Session: Not on file Stress: Feeling of Stress : Not on file Social Connections: Frequency of Communication with Friends and Family: Not on file Frequency of Social Gatherings with Friends and Family: Not on file Attends Mosque Services: Not on file Active Member of Clubs or Organizations: Not on file Attends Club or Organization Meetings: Not on file Marital Status: Not on file Intimate Partner Violence: Fear of Current or Ex-Partner: Not on file Emotionally Abused: Not on file Physically Abused: Not on file Sexually Abused: Not on file Housing Stability: Unable to Pay for Housing in the Last Year: Not on file Number of Places Lived in the Last Year: Not on file Unstable Housing in the Last Year: Not on file Family History: Family History Problem Relation Age of Onset Diabetes Mother Cancer Father Medical Decision Making: I have independently reviewed/ordered the following labs: CBC with Differential: Recent Labs 07/06/2175107/06/21164007/06/21192107/07/21 0349 WBC 7.7 -- -- 11.1 HGB 8.5* < > 9.9* 9.2* HCT 27.5* < > 30.6* 27.9* PLT 378 -- -- 372 LYMPHOPCT 20* -- -- 7* MONOPCT 6 -- -- 5 < > = values in this interval not displayed. BMP: Recent Labs 07/05/21 0517 07/05/21 1058 07/06/2175107/06/21164007/06/21192107/07/21 0349 NA 138 -- 133* < > 140 140 K 3.1* < > 3.2* < > 3.7 3.9 CL 101 -- 102 -- -- 106 CO2 27 -- 23 -- -- 22 BUN 7 -- 7 -- -- 8 CREATININE 0.79 -- 0.90 -- -- 0.83 MG 1.9 -- 2.3 -- -- -- < > = values in this interval not displayed. Hepatic Function Panel: No results for input(s): PROT, LABALBU, BILIDIR, IBILI, BILITOT, ALKPHOS, ALT, AST in the last 72 hours. No results for input(s): RPR in the last 72 hours. No results for input(s): HIV in the last 72 hours. No results for input(s): BC in the last 72 hours. Lab Results Component Value Date CREATININE 0.83 07/07/2021 GLUCOSE 205 07/07/2021 GLUCOSE 229 06/04/2011 Detailed results: Thank you for allowing us to participate in the care of this patient.Please call with questions. This note is created with the assistance of a speech recognition program. While intending to generate adocument that actually reflects the content of the visit, the document can still have some errors including those of syntax and sound a like substitutions which may escape proof reading. It such instances, actual meaningcan be extrapolated by contextual diversion. Meka Crowe MD Office: [facility] / office [phone] Neurology Nurse Practitioner Progress Note INTERVAL HISTORY: This is a 56 y.o. female admitted 06/28/2021 for AMS. This is a follow-up neurology progress note. The patient was examined and the chart was reviewed. Discussed with the pt & RN. There were no acute events overnight. No new motor, sensory, visual or bulbar symptoms. Pt c/o L frontal headache, radiating to top of the head & L temporal region; throbbing, 7/10; denied nausea & vomiting. Has been on Depakene 250 mg TID. Muscle relaxant improved neck pain. HPI: Meg Georges is a 56 y.o. female with H/O CIDP with BLEs weakness, HTN, HLD, DM, neuropathy, vertigo, MGUS, lumbar stenosis s/p L4-5 surgery (1995 & 1996), who was admitted as a transfer from [facility] ED on 06/28/2021 for AMS. As per medical records, patient was found wandering outside her 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. She was taken to [facility] ED with acute lethargy and confusion. Patient received Narcan with no improvement. Patient was evaluated by Dr. Helton through telestroke; NIH score was 1. CT head-motion degraded but no obvious acute stroke. Patient was transferred to [facility] for further evaluation. She was initially admitted under neurology service. 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 Patient has been receiving IVIG infusions every 2-week and being follow-up by neurology at [facility]. CTA head and neck was negative. MRI brain with and without contrast negative for acute pathology. EEG was negative. CSF was negative for infection. Patient was transferred to IM service on 06/30 for the management of uncontrolled hypertension, uncontrolled diabetes; patient was found to have MSSA bacteremia and upper GI bleed. sodium chloride flush 5-40 mL IntraVENous 2 times per day acetaminophen 650 mg Oral Q6H sennosides-docusate sodium 1 tablet Oral BID gabapentin 200 mg Oral TID lidocaine 1 patch TransDERmal Daily valproic acid 250 mg Oral BID fluconazole 200 mg Oral Daily [Held by provider] lisinopril 10 mg Oral Daily [MAR Hold] levothyroxine 100 mcg Oral Daily [Held by provider] insulin glargine 16 Units SubCUTAneous Daily [Held by provider] aspirin 81 mg Oral Daily nafcillin 2,000 mg IntraVENous Q4H carvedilol 25 mg Oral BID WC sodium chloride flush 5-40 mL IntraVENous 2 times per day [Held by provider] enoxaparin 40 mg SubCUTAneous Daily latanoprost 1 drop Both Eyes Nightly insulin lispro 0-12 Units SubCUTAneous TID WC insulin lispro 0-6 Units SubCUTAneous Nightly Past Medical History: Diagnosis Date Asthma Cardiac murmur Diabetes mellitus (HCC) GERD (gastroesophageal reflux disease) Hyperlipidemia Hypertension Neuropathy Radiculopathy Spinal stenosis Thyroid disease Past Surgical History: Procedure Laterality Date ACHILLES TENDON SURGERY left BACK SURGERY L 4 and 5 1995, 1996 CHOLECYSTECTOMY EYE SURGERY Baerveldt 250 shunt for open angle glaucoma. MRI compatible- device is all silicone LAMINECTOMY 07/06/2021 Posterior C1, LEFT C2 RHIZOTOMY, EXPLORATION OF EPIDURAL PHLEGMON SHOULDER SURGERY right UPPER GASTROINTESTINAL ENDOSCOPY N/A 07/02/2021 EGD ESOPHAGOGASTRODUODENOSCOPY performed by Hari Wagner MD at [facility] Endoscopy PHYSICAL EXAM: Blood pressure (!) 142/78, pulse 83, temperature 97.8 F (36.6 C), temperature source Oral, resp. rate 15, height 5' 5 (1.651 m), weight 145 lb (65.8 kg), last menstrual period 12/02/2011, SpO2 100 %, not currently . ROS: Constitutional Negative for fever and chills HEENT + L frontal headache Eyes Negative for photophobia, pain and discharge Respiratory Negative for hemoptysis and sputum Cardiovascular Negative for orthopnea, claudication and PND Gastrointestinal Negative for abdominal pain, diarrhea, blood in stool Musculoskeletal + chronic weakness BLEs & feet numbness Skin Negative for rash or itching Endo/heme/allergies Negative for polydipsia, environmental allergy Psychiatric/behavioral Negative for suicidal ideation. Patient is not anxious Neurological Examination: Mental status Alert and oriented x 3; following all commands; speech is fluent, no dysarthria, aphasia Cranial nerves II - visual bobo intact to confrontation; pupils reactive III, IV, extraocular muscles intact; no JOHANNE; no nystagmus; no ptosis V - normal facial sensation VII - normal facial symmetry VIII - intact hearing IX, X - symmetrical palate elevation XI - symmetrical shoulder shrug XII - midline tongue without atrophy or fasciculation Motor function Strength: Was able to raise BUEs antigravity B/L foot drop - unable to dorsiflex; weaker plantar flexion BLEs 3+/5 Normal bulk and tone Sensory function Chronic diminished sensations b/l feet & fingertips Cerebellar No visible tremors Reflex function BUEs 2/4 Patellar 1/4 Plantars - mute Gait Not tested DATA Lab Results Component Value Date WBC 11.1 07/07/2021 RBC 3.34 (L) 07/07/2021 HGB 9.2 (L) 07/07/2021 HCT 27.9 (L) 07/07/2021 PLT 372 07/07/2021 ALT 19 06/28/2021 AST 19 06/28/2021 NA 140 07/07/2021 K 3.9 07/07/2021 MG 2.3 07/06/2021 CL 106 07/07/2021 AMMONIA 12 06/28/2021 CREATININE 0.83 07/07/2021 BUN 8 07/07/2021 CO2 22 07/07/2021 TSH 0.15 (L) 06/28/2021 INR 1.2 06/28/2021 [id number] 374 06/28/2016 LABA1C 9.4 (H) 06/28/2021 LABMICR 7 06/25/2013 Lab Results Component Value Date CHOL 155 06/28/2021 CHOL 264 (H) 06/28/2016 CHOL 234 (H) 06/25/2013 Lab Results Component Value Date TRIG 105 06/28/2021 TRIG 253 (H) 06/28/2016 TRIG 175 (H) 06/25/2013 Lab Results Component Value Date HDL 71 06/28/2021 HDL 43 06/28/2016 HDL 45 06/25/2013 Lab Results Component Value Date LDLCHOLESTEROL 63 06/28/2021 LDLCHOLESTEROL 170 (H) 06/28/2016 LDLCHOLESTEROL 154 (H) 06/25/2013 Lab Results Component Value Date VLDL NOT REPORTED 06/28/2016 VLDL 35 (H) 06/25/2013 VLDL 53 (H) 06/04/2011 Lab Results Component Value Date CHOLHDLRATIO 2.2 06/28/2021 CHOLHDLRATIO 6.1 (H) 06/28/2016 CHOLHDLRATIO 5.2 (H) 06/25/2013 06/28/2021 04:15 07/07/2021 03:49 CRP 150.7 (H) 141.9 (H) ESR 120 (H) CSF STUDY: 06/28/2021 14:17 Albumin Index 26.9 (H) Albumin, CSF 97 Appearance, CSF Clear GLUCOSE,CSF 143 (H) IgG Index, CSF 0.64 IgG Synthesis Rate, CSF < 3.3 IgG, CSF 2.4 Myelin Basic Protein, CSF 3.30 Oligo Bands Negative Oligoclonal Bands Matching PROTEIN,CSF 20.7 B. burgdorferi Ab 0.02 West Nile IgM & IgG 0.00 & 0.19 Meningitis pane Negative RBC, CSF 1 (H) WBC, CSF 2 Cx Negative Total IgG 1383 06/28/2021 21:36 HSV, PCR Negative T. pallidum, IgG Nonreactive DIAGNOSTIC DATA: CT HEAD (06/28/2021): Poorly diagnostic examination due to patient motion CT CERVICAL SPINE (06/29/2021): Erosive changes identified at the craniocervical junction other may related to nonspecific inflammatory arthropathy/rheumatoid arthritis, given the degree of erosions involving the clivus and both lateral mass identified both condyles, infection/underlying possibility of underlying osteomyelitis should be considered in the appropriate clinical setting. MRI CERVICAL SPINE W/WO (07/04/2021): Osteomyelitis involving the odontoid process extending into the body of C2 as well as the inferior portion of the clivus. Moderate surrounding inflammation at C1-2 articulations compatible with surrounding phlegmon. There is a suspected stable tiny ventral epidural abscess measuring 0.9 x 0.3 cm. Stable moderate narrowing of the spinal canal at the foramen magnum. Mild central canal stenosis & moderate L foraminal stenosis at C6-C7. MRI BRAIN W/WO (07/05/2021): Mild cerebral atrophy. Mild chronic small vessel ischemic disease. Remote lacunar infarct in R cerebellum. Abnormal signal changes surrounding clivus & dens consistent with steomyelitis. CTA HEAD & NECK (06/28/2021): Unremarkable ECHO (07/03/2021): EF >55%. Difficult to r/o small PFO EEG (06/29/2021): Normal awake & sleep EEG IMPRESSION: 56 y.o. female admitted with Toxic metabolic encephalopathy in the setting of MSSA bacteremia & C1-2 osteomyelitis with epidural abscess; is on nafcillin. Pt has been A&Ox3, at her baseline mentation; denied any new c/o Epidural abscess C1-2 with compression of cervical medullary junction; s/p posterior cervical C1 laminectomy, L C2 rhizotomy (07/06) H/O CIDP with BLEs' weakness/foot drop & diabetic peripheral neuropathy; demyelinating neuropathy panel from [facility] was normal. Pt has been on IVIG Q 2 weeks (last was at the end of April,) Acute intractable headaches with cervicalgia L vocal cord paralysis; not a typical symptom of CIDP (see below). Pt needs to F/U with ENT as OP Comorbid conditions - HTN, HLD, vertigo, MGUS, lumbar stenosis s/p L4-5 surgery (1995 & 1996), asthma, GERD PLAN: Continue Depakene 250 mg TID for headaches. Fioricet was D/C'd Continue PT/OT Pt F/U at [facility] neurology clinic No further neurological testing is required at this time. Pt is neurologically stable We will sign off. Please, call with any questions or concerns. Thank you Please note that this note was generated using a voice recognition dictation software. Although every effort was made to ensure the accuracy of this automated dampener, some errors in dampener may have occurred. Neurosurgery NATE/Resident Daily Progress Note Chief Complaint Patient presents with Altered Mental Status 07/07/2021 10:39 AM Chart reviewed. Returned from surgery yesterday evening. Pain well controlled. Tolerating oral diet. Vitals: 07/07/21 0300 07/07/21 0400 07/07/21 0500 07/07/21 0600 BP: (!) 142/78 Pulse: 85 90 81 83 Resp: 16 18 15 Temp: 97.8 F (36.6 C) TempSrc: Oral SpO2: 100% 100% 100% 100% Weight: Height: PE: AOx3 Motor L deltoid 5/5; R deltoid 5/5 L biceps 5/5; R biceps 5/5 L triceps 5/5; R triceps 5/5 L wrist extension 5/5; R wrist extension 5/5 L intrinsics 5/5; R intrinsics 5/5 L iliopsoas 5/5 , R iliopsoas 5/5 L quadriceps 5/5; R quadriceps 5/5 L Dorsiflexion 4/5; R dorsiflexion 4/5 L Plantarflexion 2/5; R plantarflexion 1/5 Sensation intact Drain output 10 ml/12h Incision posterior cervical dressing intact Lab Results Component Value Date WBC 11.1 07/07/2021 HGB 9.2 (L) 07/07/2021 HCT 27.9 (L) 07/07/2021 PLT 372 07/07/2021 CHOL 155 06/28/2021 TRIG 105 06/28/2021 HDL 71 06/28/2021 ALT 19 06/28/2021 AST 19 06/28/2021 NA 140 07/07/2021 K 3.9 07/07/2021 CL 106 07/07/2021 CREATININE 0.83 07/07/2021 BUN 8 07/07/2021 CO2 22 07/07/2021 TSH 0.15 (L) 06/28/2021 INR 1.2 06/28/2021 LABA1C 9.4 (H) 06/28/2021 LABMICR 7 06/25/2013 CRP 141.9 (H) 07/07/2021 SEDRATE 120 (H) 06/28/2021 Culture, Anaerobic and Aerobic [[id number]] Collected: 07/06/212140 Updated: 07/06/212331 Specimen Type: Swab Specimen Source: Spine Specimen Description .SPINE Direct Exam NO NEUTROPHILS SEEN NO BACTERIA SEEN Culture CULTURE IN PROGRESS A/P 56 y.o. female who presents with epidural abscess of C1-2, compression of cervical medullary junction POD#1 posterior C1 laminectomy, left C2 rhizotomy - aspen cervical collar while out of bed - activity as tolerated, PT and OT eval - f/u cultures from OR - pain control, bowel regimen - continue drain, monitor output - encourage IS Please contact neurosurgery with any changes in patients neurologic status. Kam Loera CNP 07/07/21 10:39 AM Associated attestation - Jose Alfredo Patiño DO - 07/07/2021 2:08 PM EDT I have seen and examined the patient independently. I reviewed all laboratory and imaging studies that are relevant. I agree with the NATE note with the below addendum. Bilateral PF 4 L DF 2, R DF 1 Diminished sensation distal LE Cdi wound S/p evacuation of epidural abscess/phlegmon, C2 rhizotomy Doing well. Needs to mobilize, IS. Keep drain Collar out of bed Therapies Jose Alfredo Patiño DO Neurosurgery O: [phone] C: [phone] Images from the original note were not included. [facility] Internal Medicine Teaching Residency Program Inpatient Daily Progress Note __ Patient: Meg Georges Date of : 1965 Acct: [id number] Room: 0146/0146-01 Admit date: 06/28/2021 Today's date: 07/07/21 Number of days in the hospital: 9 SUBJECTIVE Admitting Diagnosis: Sepsis (HCC) CC: altered mentation Pt examined at bedside. Chart & results reviewed. S/p POSTERIOR CERVICAL C1 LAMINECTOMY LEFT C2 RHIZOTOMY, EXPLORATION OF EPIDURAL PHLEGMON Hemodynamically stable. Afebrile. BP Urine OP low. Fluid bolus given. Diet resumed. Holding coreg and lisinopril Continue to monitor blood cultures ROS: Constitutional: negative for chills, fevers, sweats Respiratory: negative for cough, dyspnea on exertion, hemoptysis, shortness of breath, wheezing Cardiovascular: negative for chest pain, chest pressure/discomfort, lower extremity edema, palpitations Gastrointestinal: negative for abdominal pain, constipation, diarrhea, nausea, vomiting Neurological: negative for dizziness, positive for headache BRIEF HISTORY The patient is a pleasant 56 y.o. female presents with a chief complaint of altered mentation. 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 Presented to ED from 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, found confused outside. Imaging negative. She complains of headache /, not sure how she got to ED. Denies fever, vomiting, chest kristan, cough, SOB, abdominal pain. States last BM yesterday soft. Patient somnolent but arousable, follows command, hypertensive BP as high as 202/105, HR 110, on room air. Significant labs include glycemia 254, wbc 22. Lumbar tap done. Not concerning for acute meningitis. OBJECTIVE Vital Signs: BP (!) 142/78 Pulse 83 Temp 97.8 F (36.6 C) (Oral) Resp 15 Ht 5' 5 (1.651 m) Wt 145 lb (65.8 kg) LMP 12/02/2011 SpO2 100% BMI 24.13 kg/m Temp (24hrs), Av.7 F (36.5 C), Min:96 F (35.6 C), Max:99.3 F (37.4 C) In: 1716.5 Out: 1540 [Urine:1430; Drains:10] Physical Exam: Constitutional: This is a well developed, well nourished, 18.5-24.9 - Normal 56 y.o. year old female who is alert, oriented, cooperative. Head:normocephalic and atraumatic. EENT: PERRLA. No conjunctival injections. Septum was midline, mucosa was without erythema, exudates or cobblestoning. No thrush was noted. Neck: Supple without thyromegaly. No palpable lymphadenopathy. Generalized tenderness anterior neck. No elevated JVP. Trachea was midline. Respiratory: Chest was symmetrical without dullness to percussion. Breath sounds bilaterally were clear to auscultation. There were no wheezes, rhonchi or rales. There is no intercostal retraction or use of accessory muscles. No egophony noted. Cardiovascular: Regular without murmur, clicks, gallops or rubs. Abdomen: Slightly rounded and soft without organomegaly. No rebound, rigidity or guarding was appreciated. Lymphatic: No lymphadenopathy. Musculoskeletal: Normal curvature of the spine. No gross muscle weakness. Extremities: No lower extremity edema, ulcerations, tenderness, varicosities or erythema. Muscle size, tone and strength are normal. No involuntary movements are noted. Skin: Ulcer present on left foot. Loss of sensation Neurological/Psychiatric: Patient alert and oriented x 3, memory intact, concentration preserved. Moves all extremities.decreased sensation in socks glove pattern Medications: Scheduled Medications: sodium chloride 1,000 mL IntraVENous Once sodium chloride flush 5-40 mL IntraVENous 2 times per day acetaminophen 650 mg Oral Q6H sennosides-docusate sodium 1 tablet Oral BID gabapentin 200 mg Oral TID lidocaine 1 patch TransDERmal Daily valproic acid 250 mg Oral BID fluconazole 200 mg Oral Daily [Held by provider] lisinopril 10 mg Oral Daily [MAR Hold] levothyroxine 100 mcg Oral Daily [Held by provider] insulin glargine 16 Units SubCUTAneous Daily [Held by provider] aspirin 81 mg Oral Daily nafcillin 2,000 mg IntraVENous Q4H carvedilol 25 mg Oral BID sodium chloride flush 5-40 mL IntraVENous 2 times per day [Held by provider] enoxaparin 40 mg SubCUTAneous Daily latanoprost 1 drop Both Eyes Nightly insulin lispro 0-12 Units SubCUTAneous TID insulin lispro 0-6 Units SubCUTAneous Nightly Continuous Infusions: sodium chloride sodium chloride 100 mL/hr at 07/07/21 0611 dextrose PRN Medicationssodium chloride flush, 5-40 mL, PRN sodium chloride, , PRN oxyCODONE, 5 mg, Q4H PRN Or oxyCODONE, 10 mg, Q4H PRN morphine, 1 mg, Q4H PRN potassium chloride, 10 mEq, PRN sodium chloride flush, 10 mL, PRN sodium chloride flush, 10 mL, PRN loperamide, 2 mg, 4x Daily PRN sodium chloride flush, 10 mL, PRN tiZANidine, 2 mg, Q8H PRN ffzgzqpmof-gqekpvmlrvrkf-keibfqsz, 1 tablet, Q4H PRN hydrALAZINE, 10 mg, Q4H PRN sodium chloride flush, 5-40 mL, PRN ondansetron, 4 mg, Q8H PRN Or ondansetron, 4 mg, Q6H PRN [APR Hold] bisacodyl, 5 mg, Daily PRN sodium chloride flush, 5-40 mL, PRN labetalol, 10 mg, Q4H PRN glucose, 4 tablet, PRN dextrose bolus, 125 mL, PRN Or dextrose bolus, 250 mL, PRN glucagon (rDNA), 1 mg, PRN dextrose, 100 mL/hr, PRN Diagnostic Labs: CBC: Recent Labs 07/05/21 0517 07/05/21 0517 07/06/21 0752 07/06/21 0752 07/06/21 1641 07/06/21 1922 07/07/21 0349 WBC 10.0 -- 7.7 -- -- -- 11.1 RBC 2.98* -- 3.27* -- -- -- 3.34* HGB 7.9* < > 8.5* < > 6.7* 9.9* 9.2* HCT 24.6* < > 27.5* < > 21.0* 30.6* 27.9* MCV 82.6 -- 84.1 -- -- -- 83.5 RDW 17.5* -- 18.2* -- -- -- 17.2* PLT 341 -- 378 -- -- -- 372 < > = values in this interval not displayed. BMP: Recent Labs 07/05/21 0517 07/05/21 1058 07/06/21 0752 07/06/21 1641 07/06/21 1922 07/07/21 0349 NA 138 -- 133* 140 140 140 K 3.1* < > 3.2* 3.6 3.7 3.9 CL 101 -- 102 -- -- 106 CO2 27 -- 23 -- -- 22 BUN 7 -- 7 -- -- 8 CREATININE 0.79 -- 0.90 -- -- 0.83 < > = values in this interval not displayed. BNP: No results for input(s): BNP in the last 72 hours. PT/INR: No results for input(s): PROTIME, INR in the last 72 hours. APTT: No results for input(s): APTT in the last 72 hours. CARDIAC ENZYMES: No results for input(s): CKMB, CKMBINDEX, TROPONINI in the last 72 hours. Invalid input(s): CKTOTAL;3 FASTING LIPID PANEL: Lab Results Component Value Date CHOL 155 06/28/2021 HDL 71 06/28/2021 TRIG 105 06/28/2021 LIVER PROFILE: No results for input(s): AST, ALT, ALB, BILIDIR, BILITOT, ALKPHOS in the last 72 hours. MICROBIOLOGY: Lab Results Component Value Date/Time CULTURE CULTURE IN PROGRESS 07/06/2021 09:41 PM Imaging: CT Head WO Contrast Result Date: 06/28/2021 1. Poorly diagnostic examination due to patient motion. 2. No gross evidence of hemorrhage or mass effect. A telephone call regarding the findings in examination and limitations the study was made to and acknowledged by Dr. Boothe in the emergency department at 4:55 AM on 06/28/2021. CT ABDOMEN PELVIS W IV CONTRAST Additional Contrast? None Result Date: 06/28/2021 1. No evidence of bowel obstruction. 2. Normal appendix. 3. Status post cholecystectomy. XR CHEST PORTABLE Result Date: 06/28/2021 No acute abnormality. CTA HEAD NECK W CONTRAST Result Date: 06/28/2021 Unremarkable CTA of the head and neck. ASSESSMENT & PLAN Sepsis with MSSA bacteremia; osteomyelitis of C2: -continu Nafcillin 2 g q 4 h. Stop date 07-29-21 per ID -Repeat blood cultures positive -echo normal. EF > 55%, no valvular abnormalities, no vegetations. - Erosive changes at craniocervical junction which may be related to arthritis or osteomyelitis by CT cervical spine 06-29-21 -left foot ulceration; Podiatry consulted for concern for osteomyelitis and possible source of MSSA bacteremia -XR left foot negative for osteomyelitis - CT chest showed right upper lobe pulmonary nodule -resp viral panel negative - Bone scan concerning for c1-c2 osteomyelitis osteomyelitis C1-C2 with epidural abscess Neurosurgery on board MRI cervical spine and brain confirms today small epidural abscess at C1/2 level with compression of the brainstem spinal cord junction. s/p C1-2 laminectomy, C2 rhizotomy 07/06/2021. Alan esophagitis: - on EGD 07/02/2021. On Diflucan 200 mg daily for 14 days. GI signed off. Hypothyroidism: -TSH low. - levothyroxine dose decreased from 112 mcg to 100 mcg daily Diabetes Mellitus type II: -medium dose ISS -hypoglycemia protocol - glucose checks q4 Essential hypertension: -BP running soft overnight.On Coreg and lisinopril. Hold antihypertensives. Elevated troponins: Downtrended likely type II AL Hypokalemia: K+ 3.9 today. Repeat potassium level and replace if needed Left Vocal cord paralysis: Ongoing x 1 month. ENT on board. Plan for injection laryngoplasty for voice/swallowing improvement at some point. Passed swallow study. Rufus Argueta MD Internal Medicine Resident, PGY- [facility]; [place], [place] 07/07/2021, 7:16 AM Associated attestation - Johnny Robledo MD - 07/07/2021 2:08 PM EDT Attending Supervising Physician s Attestation Statement I have seen and examined Meg Georges and the coffey elements of all parts of the encounter have been performed by me. I agree with the assessment, plan and orders as documented by the Advanced Practice Provider. I discussed the findings and plans with the resident physician and agree as documented in their note . In addition to the pertinent positives and negatives as stated within HPI and the review of systems as documented in the notes, all other systems were reviewed when able to and are reported negative. Additional Comments: OR yesterday per NS. Pain controlled. Will likely need placement. Follow up repeat cultures for MSSA clearance Images from the original note were not included. Occupational Therapy [facility] Occupational Therapy Not Seen Note DATE: 07/06/2021 NAME: Meg Georges : 1965 Patient not seen this date for Occupational Therapy due to: Surgery/Procedure: POSTERIOR CERVICAL C1-2 LAMINECTOMY Next Scheduled Treatment: 07/07 Speech Language Pathology Speech Language Pathology [facility] Cognitive/Dysphagia Treatment Note Date: 07/06/2021 Patient s Name: Meg Georges Diagnosis: Patient Active Problem List Diagnosis Code Cellulitis of left finger L03.012 Altered mental state R41.82 Encephalitis G04.90 Encephalopathy G93.40 CIDP (chronic inflammatory demyelinating polyneuropathy) ([facility]) G61.81 Sepsis (HCC) A41.9 Bacteremia R78.81 Hypothyroidism E03.9 Hypokalemia E87.6 Type 2 diabetes mellitus with diabetic polyneuropathy ([facility]) E11.42 Primary hypertension I10 Upper GI bleed K92.2 Non-intractable vomiting R11.10 Unintentional weight loss R63.4 Acute metabolic encephalopathy G93.41 MSSA (methicillin susceptible Staphylococcus aureus) septicemia ([facility]) A41.01 Elevated C-reactive protein (CRP) R79.82 Bandemia D72.825 Allergy to multiple antibiotics Z88.1 Pyogenic inflammation of bone ([facility]) M86.9 Acute intractable headache R51.9 Pain: 0/10 Cognitive Treatment Treatment time: 935-1013 Subjective: [x] Alert [x] Cooperative [] Confused [] Agitated [] Lethargic Objective/Assessment: Recall: Delayed recall; 1/4 increased to 4/4 with min-max verbal cues, 1/4 increased to 4/4 with min verbal cues Word list retention: Recall by attribute; 10/29 increased to 12/ with repetitions Problem Solving/Reasoning: Word deduction; 11/28 increased to 12/ with min verbal cues Category members: [place]; 8/10 increased to 10/10 with min verbal cues Wrong category: [place]; 5/10 increased to 10/10 with repetitions and min-mod verbal cues Other: Pt. Seen for O/M treatment program for dysphagia. Pt. Completed O/M exercises X 10 X 1 set with min-mod verbal cues. Pt. Completed bree maneuver X 5 reps with min verbal cues. Education provided and exercises left at bedside. Pt demonstrated difficulty with lingual ROM and lingual protrusion. Plan: [x] Continue ST services [] Discharge from ST: Discharge recommendations: [] Further therapy recommended at discharge.The patient should be able to tolerate at least 3 hours of therapy per day over 5 days or 15 hours over 7 days. [x] Further therapy recommended at discharge. [] No therapy recommended at discharge. Completed by Chaitanya Pratt Senior Technical Program Manager Clinician Co-signed by Robbie Mckeon M.A.CCC/OPERATIONS RECRUITER Images from the original note were not included. [facility] - Infectious diseases evaluation admission date 06/28/2021 reason for consultation: Sepsis with staph bacteremia Impression : Current: MSSA septicemia CRP elevation cerv spine osteomyelitis - erosions on CT and b scan bandemia Acute metabolic encephalopathy- resolving -LP neg CIDP chronic IVIG therapy - immunosuppressdUlcer on the left foot Allergy to keflex and avelox - tolerates PNC Other: Hypothyroidism Diabetes mellitus type 2 Essential hypertension Elevated troponin CIDP on IVIG infusions every 2 weeks Discussion / summary of stay / plan of care Recommendations Acute encephalopathy from sepsis - resolved - LP neg MSSA septicemia -persistent till 07/04 Echo neg for vegetation EMIR deferred for now BC repeat till neg Nafcillin 2 g q 4 - watch WBC Cough - neg CT chest for septic emboli Neck new pain -1 Mo old - B scan / CT/ MRI + OM and epidural anterior abscess NS - NPO for cerv spine surg alan esophagitis on EGD 07/02 - fluconazole 200 daily till 07/12 CRP on the rise despite tx Infection Control Recommendations [place] Precautions Contact Isolation Antimicrobial Stewardship Recommendations Simplification of therapy Targeted therapy History of Present Illness: Initial history: Meg Georges is a 56 y.o.-year-old female presented to the ED for altered mental status. Patient is currently admitted under neurology service. Patient presented from a 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 after an episode of confusion overnight where she was found wandering outside her 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. She had CT head done at outside facility which did not show any acute changes, telestroke was consulted for the concern of confusion, they recommended transfer to [facility] for MRI of the brain. BC SA MSSA and LP neg CRP elevated and WBc up - creat normal 06/29 mentally recovered Neck pain x 1 mo Left sole callus was infected x 2 months ago at the CT She gets her IvIg through a periph that gets pulled each time - no picc outpt Hoarse x some time wo reason Cough x 1 month Interval changes 07/06/2021 Patient Vitals for the past 8 hrs: BP Temp Temp src Pulse Resp SpO2 07/06/21 2145 128/72 84 15 99 % 07/06/21 2130 122/64 83 13 100 % 07/06/21 2115 (!) 135/52 81 21 100 % 07/06/21 2106 (!) 142/66 96 F (35.6 C) Temporal 81 23 100 % 07/06 Still neck pain - BC + Planned for C spine sx today 07/05: CRP-186.3 on the rise still All BC so far + MSSA MRI C soine shows C spine epidural anterior abscess w OM - No weakness =but severe neck pain and CRP on the rise, BC all still +, hence suggest sx drainage if feasible 07/04:EGD 07/02 + alan esophagitis - starting fluconazole Still neck pain - MRI deferred due to metal in eye -bone scan ordered Still hoarse a little though better Labs reviewed 07/03/21 Neck pain ++ B scan + mets or infection - unclear CT c spine w erosions of the bone, infection or mets BC still + through 07/02 Did not meet criteria for the bacteremia research study Summary of relevant labs: Labs: CRP 150.7 - 191 - 186 procalcitonin 0.66, WBC-15 - 10 Micro: 06/29 -07/01 - 07 04 Blood Culture MSSA 06/29 LP -WBC 2 - RBC 1 - cx pend Imaging: I have personally reviewed the past medical history, past surgical history, medications, social history, and family history, and I haveupdated the database accordingly. Allergies: Moxifloxacin, Peg 3350-electrolytes, Tapentadol, Avelox [moxifloxacin hydrochloride], and Cephalexin Review of Systems: Review of Systems Constitutional: Negative for activity change. HENT: Negative for congestion. Hoarse Eyes: Negative for pain and discharge. Respiratory: Negative for apnea. Cardiovascular: Negative for chest pain. Gastrointestinal: Negative for abdominal distention. Endocrine: Negative for heat intolerance and polydipsia. Genitourinary: Negative for dysuria. Musculoskeletal: Positive for neck pain. Skin: Negative for color change. Rash: left sole under MTS head 1. Allergic/Immunologic: Negative for immunocompromised state. Neurological: Negative for dizziness. Hematological: Negative for adenopathy. Psychiatric/Behavioral: Negative for agitation. Physical Examination : Physical Exam Constitutional: Appearance: Normal appearance. She is not ill-appearing. HENT: Head: Normocephalic and atraumatic. Nose: Nose normal. Mouth/Throat: Mouth: Mucous membranes are moist. Eyes: Conjunctiva/sclera: Conjunctivae normal. Pupils: Pupils are equal, round, and reactive to light. Cardiovascular: Rate and Rhythm: Normal rate and regular rhythm. Heart sounds: Normal heart sounds. Pulmonary: Effort: No respiratory distress. Breath sounds: Normal breath sounds. Abdominal: General: There is no distension. Palpations: Abdomen is soft. Tenderness: There is no abdominal tenderness. Genitourinary: Comments: Urine chanda Musculoskeletal: General: No swelling, tenderness, deformity or signs of injury. Cervical back: No rigidity. Right lower leg: No edema. Skin: Coloration: Skin is not jaundiced. Findings: No bruising. Neurological: General: No focal deficit present. Mental Status: She is alert and oriented to person, place, and time. Cranial Nerves: No cranial nerve deficit. Psychiatric: Mood and Affect: Mood normal. Past Medical History: Past Medical History: Diagnosis Date Asthma Cardiac murmur Diabetes mellitus (HCC) GERD (gastroesophageal reflux disease) Hyperlipidemia Hypertension Neuropathy Radiculopathy Spinal stenosis Thyroid disease Past Surgical History: Past Surgical History: Procedure Laterality Date ACHILLES TENDON SURGERY left BACK SURGERY L 4 and 5 1995, 1996 CHOLECYSTECTOMY EYE SURGERY [address] 250 shunt for open angle glaucoma. MRI compatible- device is all silicone LAMINECTOMY 07/06/2021 Posterior C1, LEFT C2 RHIZOTOMY, EXPLORATION OF EPIDURAL PHLEGMON SHOULDER SURGERY right UPPER GASTROINTESTINAL ENDOSCOPY N/A 07/02/2021 EGD ESOPHAGOGASTRODUODENOSCOPY performed by Hari Wagner MD at [facility] Endoscopy Medications: sodium chloride flush 5-40 mL IntraVENous 2 times per day [APR Hold] gabapentin 200 mg Oral TID [APR Hold] lidocaine 1 patch TransDERmal Daily [APR Hold] valproic acid 250 mg Oral BID [APR Hold] fluconazole 200 mg Oral Daily [Held by provider] lisinopril 10 mg Oral Daily [APR Hold] levothyroxine 100 mcg Oral Daily [Held by provider] insulin glargine 16 Units SubCUTAneous Daily [Held by provider] aspirin 81 mg Oral Daily [APR Hold] nafcillin 2,000 mg IntraVENous Q4H [Held by provider] carvedilol 25 mg Oral BID WC [APR Hold] sodium chloride flush 5-40 mL IntraVENous 2 times per day [Held by provider] enoxaparin 40 mg SubCUTAneous Daily [APR Hold] latanoprost 1 drop Both Eyes Nightly [APR Hold] insulin lispro 0-12 Units SubCUTAneous TID WC [APR Hold] insulin lispro 0-6 Units SubCUTAneous Nightly Social History: Social History Socioeconomic History Marital status: Spouse name: Not on file Number of children: Not on file Years of education: Not on file Highest education level: Not on file Occupational History Not on file Tobacco Use Smoking status: Former Smoker Years: 20.00 Types: Cigarettes Quit date: 10/06/1995 Years since quittin.7 Smokeless tobacco: Never Used Substance and Sexual Activity Alcohol use: No Drug use: No Sexual activity: Not on file Other Topics Concern Not on file Social History Narrative Not on file Social Determinants of Health Financial Resource Strain: Difficulty of Paying Living Expenses: Not on file Food Insecurity: Worried About Running Out of Food in the Last Year: Not on file Ran Out of Food in the Last Year: Not on file Transportation Needs: Lack of Transportation (Medical): Not on file Lack of Transportation (Non-Medical): Not on file Physical Activity: Days of Exercise per Week: Not on file Minutes of Exercise per Session: Not on file Stress: Feeling of Stress : Not on file Social Connections: Frequency of Communication with Friends and Family: Not on file Frequency of Social Gatherings with Friends and Family: Not on file Attends Mosque Services: Not on file Active Member of Clubs or Organizations: Not on file Attends Club or Organization Meetings: Not on file Marital Status: Not on file Intimate Partner Violence: Fear of Current or Ex-Partner: Not on file Emotionally Abused: Not on file Physically Abused: Not on file Sexually Abused: Not on file Housing Stability: Unable to Pay for Housing in the Last Year: Not on file Number of Places Lived in the Last Year: Not on file Unstable Housing in the Last Year: Not on file Family History: Family History Problem Relation Age of Onset Diabetes Mother Cancer Father Medical Decision Making: I have independently reviewed/ordered the following labs: CBC with Differential: Recent Labs 07/05/21 0507/05/21 0517 07/06/21 0752 07/06/21 0752 07/06/21 16407/06/211921 WBC 10.0 -- 7.7 -- -- -- HGB 7.9* < > 8.5* < > 6.7* 9.9* HCT 24.6* < > 27.5* < > 21.0* 30.6* PLT 341 -- 378 -- -- -- LYMPHOPCT 26 -- 20* -- -- -- MONOPCT 4 -- 6 -- -- -- < > = values in this interval not displayed. BMP: Recent Labs 07/05/21 0517 07/05/21 1058 07/06/21 0752 07/06/21 16407/06/211921 NA 138 -- 133* 140 140 K 3.1* < > 3.2* 3.6 3.7 CL 101 -- 102 -- -- CO2 27 -- 23 -- -- BUN 7 -- 7 -- -- CREATININE 0.79 -- 0.90 -- -- MG 1.9 -- 2.3 -- -- < > = values in this interval not displayed. Hepatic Function Panel: No results for input(s): PROT, LABALBU, BILIDIR, IBILI, BILITOT, ALKPHOS, ALT, AST in the last 72 hours. No results for input(s): RPR in the last 72 hours. No results for input(s): HIV in the last 72 hours. No results for input(s): BC in the last 72 hours. Lab Results Component Value Date CREATININE 0.90 07/06/2021 GLUCOSE 138 07/06/2021 GLUCOSE 229 06/04/2011 Detailed results: Thank you for allowing us to participate in the care of this patient.Please call with questions. This note is created with the assistance of a speech recognition program. While intending to generate adocument that actually reflects the content of the visit, the document can still have some errors including those of syntax and sound a like substitutions which may escape proof reading. It such instances, actual meaningcan be extrapolated by contextual diversion. Meka Crowe MD Office: Perfect serve / office [phone] [facility] Neurology IN-PATIENT SERVICE [facility] Progress Note Date: 07/06/2021 Patient name: Meg Georges Date of admission: 06/28/2021 11:59 AM Account: [id number] Date of : 1965 PCP: Neri Santa Sr, DO Room: 0146/0146-01 Code Status: Full Code Chief Complaint: Chief Complaint Patient presents with Altered Mental Status Brief History of Present Illness: As per initial evaluation and assessment, Meg Georges is a 56 y.o. 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 She was found wandering outside of her 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. She was admitted to the medicine team and was found to have sepsis as well as a GI bleed. Neurology was consulted due to altered mentation and headache. CT head was done and was unremarkable. CTA head neck unremarkable. EEG was normal. Spinal tap was done in the ED with CSF studies negative for meningitis or SOAP MAKER infection. For her headache she was placed on Depacon with relief and also received IV mag and Fioricet. Muscle relaxer was added due to tenderness of to palpation in the left paraspinal cervical musculature. Neurology later asked to evaluate for CIDP being the cause behind patient's vocal cord paralysis. Patient reports she has had her hoarse voice for the past one month, since she entered her nursing facility. She denies any other associated symptoms she typically feels when she is having a CIDP flare. She had been getting IVIG every 2 weeks with her last dose being at the end of April. She denies any respiratory distress, trouble swallowing, or increased weakness to her arms and legs. 07/06: patient was seen and evaluated the bedside. Moderate dysarthria with no aphasia. She is in mild distress and complaining of pain in the left posterior occipital region pulsating. No visual deficits. Generalized weakness but no focal weakness 4/5 in all 4 extremities. Discussed with patient about possible plan for surgery. She is aware and understands. Blood pressure was running soft overnight and plan to hold antihypertensives as per primary team. Mild diarrhea causing hypokalemia 3.2. Barium swallow concerning for small aspiration. MRI brain Mild cerebral atrophy. Mild chronic small vessel ischemic disease. Remote lacunar infarct in the right cerebellum. No acute brain parenchymal abnormality. Past Medical History: Past Medical History: Diagnosis Date Asthma Cardiac murmur Diabetes mellitus (HCC) GERD (gastroesophageal reflux disease) Hyperlipidemia Hypertension Neuropathy Radiculopathy Spinal stenosis Thyroid disease Past Surgical History: Past Surgical History: Procedure Laterality Date ACHILLES TENDON SURGERY left BACK SURGERY L 4 and 5 1995, 1996 CHOLECYSTECTOMY EYE SURGERY [place] 250 shunt for open angle glaucoma. MRI compatible- device is all silicone SHOULDER SURGERY right UPPER GASTROINTESTINAL ENDOSCOPY N/A 07/02/2021 EGD ESOPHAGOGASTRODUODENOSCOPY performed by Hari Wagner MD at [facility] Endoscopy Medications Prior to Admission: Prior to Admission medications Medication Sig Start Date End Date Taking? Authorizing Provider insulin glargine (LANTUS) 100 UNIT/ML injection vial Inject 16 Units into the skin nightly Yes Historical Provider, brimonidine (ALPHAGAN P) 0.15 % ophthalmic solution Apply 1 drop to eye 2 times daily Left eye 11/15/19 Yes Historical Provider, carvedilol (COREG) 25 MG tablet Take 25 mg by mouth 2 times daily (with meals) Yes Historical Provider, HYDROcodone-acetaminophen (NORCO) 5-325 MG per tablet Take 1 tablet by mouth every 4 hours as needed for Pain. Yes Historical Provider, insulin lispro (HUMALOG KWIKPEN) 100 UNIT/ML pen Inject 30 Units into the skin 3 times daily (before meals) Sliding scale coverage- Use less than 30 units with sliding scale Yes Historical Provider, aspirin 325 MG tablet Take 325 mg by mouth daily 04/07/17 Yes Historical Provider, latanoprost (XALATAN) 0.005 % ophthalmic solution Place 1 drop into both eyes nightly 03/05/17 Yes Historical Provider, lisinopril (PRINIVIL;ZESTRIL) 10 MG tablet Take 10 mg by mouth daily Yes Historical Provider, tiZANidine (ZANAFLEX) 4 MG tablet Take 4 mg by mouth as needed Yes Historical Provider, dorzolamide-timolol (COSOPT) 22.3-6.8 MG/ML ophthalmic solution Place 1 drop into the right eye 2 times daily 08/08/17 Yes Historical Provider, Multiple Vitamins-Minerals (MULTIVITAMIN ADULT PO) Take 1 tablet by mouth daily Yes Historical Provider, levothyroxine (SYNTHROID) 112 MCG tablet Take 112 mcg by mouth Daily Yes Historical Provider, Allergies: Moxifloxacin, Peg 3350-electrolytes, Tapentadol, Avelox [moxifloxacin hydrochloride], and Cephalexin Social History: Tobacco: reports that she quit smoking about 25 years ago. Her smoking use included cigarettes. She quit after 20.00 years of use. She has never used smokeless tobacco. Alcohol: reports no history of alcohol use. Drug Use: reports no history of drug use. Family History: Family History Problem Relation Age of Onset Diabetes Mother Cancer Father Review of Systems: Review of Systems Physical Exam: BP (!) 125/59 Pulse 79 Temp 98.2 F (36.8 C) (Oral) Resp 17 Ht 5' 5 (1.651 m) Wt 145 lb (65.8 kg) LMP 12/02/2011 SpO2 100% BMI 24.13 kg/m Temp (24hrs), Av F (36.7 C), Min:97.8 F (36.6 C), Max:98.2 F (36.8 C) Recent Labs 07/05/21 0818 07/05/21 1136 07/05/21 1554 07/05/21 1954 POCGLU 147* 134* 185* 102 Intake/Output Summary (Last 24 hours) at 07/06/2021 0757 Last data filed at 07/05/2021 2200 Gross per 24 hour Intake Output 450 ml Net -450 ml Neurologic Exam GENERAL In mild distress due to headache otherwirse oriented x 3. Moderate dysarthria. No aphasia or any confusion HEENT NC/ AT HEART S1 and S2 heard; palpation of pulses: radial pulse NECK Supple and no bruits heard MENTAL STATUS: Alert, oriented, intact memory, no confusion, normal speech, normal language, no hallucination or delusion CRANIAL NERVES: II - Visual bobo intact to confrontation III,IV, - PERR, EOMs full, no ptosis V - Normal facial sensation VII - Normal facial symmetry VIII - Intact hearing IX,X - Symmetrical palate XI - Symmetrical shoulder shrug XII - Midline tongue, no atrophy MOTOR FUNCTION: RUE: Significant for good strength of grade 4/5 in proximal and distal muscle groups LUE: Significant for good strength of grade 4/5 in proximal and distal muscle groups RLE: Significant for good strength of grade 4+/5 in proximal and distal muscle groups LLE: Significant for good strength of grade 4+/5 in proximal and distal muscle groups Normal bulk, normal tone and no involuntary movements, no tremor SENSORY FUNCTION: Normal touch, normal pinprick, normal vibration, normal proprioception CEREBELLAR FUNCTION: Intact fine motor control over upper limbs and lower limbs REFLEX FUNCTION: Symmetric in upper and lower extremities, no Babinski sign STATION and GAIT deffered Investigations: Laboratory Testing: Recent Results (from the past 24 hour(s)) POC Glucose Fingerstick Collection Time: 07/05/21 8:18 AM Result Value Ref Range POC Glucose 147 (H) 65 - 105 mg/dL Potassium Collection Time: 07/05/21 10:58 AM Result Value Ref Range Potassium 3.8 3.7 - 5.3 mmol/L POC Glucose Fingerstick Collection Time: 07/05/21 11:36 AM Result Value Ref Range POC Glucose 134 (H) 65 - 105 mg/dL POC Glucose Fingerstick Collection Time: 07/05/21 3:54 PM Result Value Ref Range POC Glucose 185 (H) 65 - 105 mg/dL POC Glucose Fingerstick Collection Time: 07/05/21 7:54 PM Result Value Ref Range POC Glucose 102 65 - 105 mg/dL Recent Labs 07/05/21516 WBC 10.0 RBC 2.98* HGB 7.9* HCT 24.6* MCV 82.6 MCH 26.5 MCHC 32.1 RDW 17.5* PLT 341 MPV 9.7 Recent Labs 07/05/2151607/05/2151607/05/21 1058 NA 138 -- -- K 3.1* < > 3.8 CL 101 -- -- CO2 27 -- -- BUN 7 -- -- CREATININE 0.79 -- -- GLUCOSE 136* -- -- CALCIUM 8.4* -- -- < > = values in this interval not displayed. Hemoglobin A1C Date Value Ref Range Status 06/28/2021 9.4 (H) 4.0 - 6.0 % Final Assessment : Primary Problem Sepsis (HCC) Active Hospital Problems Diagnosis Date Noted Elevated C-reactive protein (CRP) [R79.82] Priority: Medium Bandemia [D72.825] Priority: Medium Allergy to multiple antibiotics [Z88.1] Priority: Medium Pyogenic inflammation of bone ([facility]) [M86.9] Priority: Medium Acute intractable headache [R51.9] Priority: Medium Acute metabolic encephalopathy [G93.41] 06/30/2021 Priority: Medium MSSA (methicillin susceptible Staphylococcus aureus) septicemia ([facility]) [A41.01] 06/30/2021 Priority: Medium Upper GI bleed [K92.2] Priority: Medium Non-intractable vomiting [R11.10] Priority: Medium Unintentional weight loss [R63.4] Priority: Medium Sepsis ([facility]) [A41.9] 06/29/2021 Priority: Medium Bacteremia [R78.81] 06/29/2021 Priority: Medium Hypothyroidism [E03.9] 06/29/2021 Priority: Medium Hypokalemia [E87.6] 06/29/2021 Priority: Medium Type 2 diabetes mellitus with diabetic polyneuropathy (HCC) [E11.42] 06/29/2021 Priority: Medium Primary hypertension [I10] 06/29/2021 Priority: Medium Encephalopathy [G93.40] Priority: Medium CIDP (chronic inflammatory demyelinating polyneuropathy) (HCC) [G61.81] Priority: Medium Altered mental state [R41.82] 06/28/2021 Priority: Medium Encephalitis [G04.90] Priority: Medium Impression: -Acute metabolic encephalopathy in the setting of MSSA bacteremia, sepsis; resolved -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 -Speech therapy diet recommendation: Easy to chew solid and mildly thick liquid. -Hold off on IVIG presently given active infection; continue to monitor for symptoms of CIDP - MRI brain w wo contrast: Mild cerebral atrophy. Mild chronic small vessel ischemic disease. Remote lacunar infarct in the right cerebellum. No acute brain parenchymal abnormality. - Blood Culture positive for staph aureus. On nafcillin -CSF studies are negative for SOAP MAKER infection. -Continue Depakene 250mg BID for headache. -GI is following, patient is s/p EGD with findings suggestive of Alan esophagitis -ID is following; patient remains on antibiotics. -Neurosurgery is following: Plan for occipital cervical fusion once infection is more controlled, most likely today if patient is neurologically intact and no worsening. Altered mentation for proptosis C1-C2 laminectomy to decompress her spinal cord and attempt drainage of epidural abscess possibly left C2 rhizotomy to treat her severe occipital neuralgia. -PT/OT -We will follow Follow-up further recommendations after discussing the case with attending The plan was discussed with the patient, patient's family and the medical staff. Consultations: IP CONSULT TO NEUROLOGY IP CONSULT TO INTERNAL MEDICINE PHARMACY TO DOSE VANCOMYCIN IP CONSULT TO INFECTIOUS DISEASES IP CONSULT TO GI IP CONSULT TO PODIATRY IP CONSULT TO OTOLARYNGOLOGY IP CONSULT TO NEUROSURGERY Patient is admitted as inpatient status because of co-morbidities listed above, severity of signs and symptoms as outlined, requirement for current medical therapies and most importantly because of direct risk to patient if care not provided in a hospital setting. Jaspal Bonner MD 07/06/2021 7:57 AM Copy sent to Dr. Neri Santa Sr, DO Associated attestation - Pawan Dutton DO - 07/06/2021 4:51 PM EDT Attending Physician Statement: I have discussed the case of Meg Georges, including pertinent history and exam findings with the resident. I have seen and examined the patient and the coffey elements of the encounter have been performed by me. I have reviewed medications, clinical laboratory, imaging and other diagnostic tests with the residents. I agree with the assessment, plan and orders as documented by the resident with changes made to the note as needed. MRI brain showing abnormal signal changes surrounding the clivus and dens consistent with patient's known osteomyelitis. She is going to the OR today by neurosurgery for laminectomy and drainage of abscess. We will follow. Pawan Dutton DO 07/06/2021 4:50 PM Images from the original note were not included. [facility] Internal Medicine Teaching Residency Program Inpatient Daily Progress Note __ Patient: Meg Georges Date of : 1965 Acct: [id number] Room: 0146/0146-01 Admit date: 06/28/2021 Today's date: 07/06/21 Number of days in the hospital: 8 SUBJECTIVE Admitting Diagnosis: Sepsis (HCC) CC: altered mentation Pt examined at bedside. Chart & results reviewed. complains of diarrhea. Imodium ordered Hemodynamically stable. Afebrile. BP soft. Holding coreg and lisinopril Neuro surgery planning surgery today for epidural abscess K+ 3.2. will replace IV EGD revealed alan esophagitis. On fluconazole. BC positive 07/04. On nafcillin ROS: Constitutional: negative for chills, fevers, sweats Respiratory: negative for cough, dyspnea on exertion, hemoptysis, shortness of breath, wheezing Cardiovascular: negative for chest pain, chest pressure/discomfort, lower extremity edema, palpitations Gastrointestinal: negative for abdominal pain, constipation, diarrhea, nausea, vomiting Neurological: negative for dizziness, positive for headache BRIEF HISTORY The patient is a pleasant 56 y.o. female presents with a chief complaint of altered mentation. 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 Presented to ED from 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, found confused outside. Imaging negative. She complains of headache 11/26, not sure how she got to ED. Denies fever, vomiting, chest kristan, cough, SOB, abdominal pain. States last BM yesterday soft. Patient somnolent but arousable, follows command, hypertensive BP as high as 202/105, HR 110, on room air. Significant labs include glycemia 254, wbc 22. Lumbar tap done. Not concerning for acute meningitis. OBJECTIVE Vital Signs: BP (!) 124/58 Pulse 73 Temp 97.8 F (36.6 C) (Axillary) Resp 15 Ht 5' 5 (1.651 m) Wt 145 lb (65.8 kg) LMP 12/02/2011 SpO2 100% BMI 24.13 kg/m Temp (24hrs), Av.9 F (36.6 C), Min:97.8 F (36.6 C), Max:98.1 F (36.7 C) In: - Out: 450 [Urine:450] Physical Exam: Constitutional: This is a well developed, well nourished, 18.5-24.9 - Normal 56 y.o. year old female who is alert, oriented, cooperative. Head:normocephalic and atraumatic. EENT: PERRLA. No conjunctival injections. Septum was midline, mucosa was without erythema, exudates or cobblestoning. No thrush was noted. Neck: Supple without thyromegaly. No palpable lymphadenopathy. Generalized tenderness anterior neck. No elevated JVP. Trachea was midline. Respiratory: Chest was symmetrical without dullness to percussion. Breath sounds bilaterally were clear to auscultation. There were no wheezes, rhonchi or rales. There is no intercostal retraction or use of accessory muscles. No egophony noted. Cardiovascular: Regular without murmur, clicks, gallops or rubs. Abdomen: Slightly rounded and soft without organomegaly. No rebound, rigidity or guarding was appreciated. Lymphatic: No lymphadenopathy. Musculoskeletal: Normal curvature of the spine. No gross muscle weakness. Extremities: No lower extremity edema, ulcerations, tenderness, varicosities or erythema. Muscle size, tone and strength are normal. No involuntary movements are noted. Skin: Ulcer present on left foot. Loss of sensation Neurological/Psychiatric: Patient alert and oriented x 3, memory intact, concentration preserved. Moves all extremities.decreased sensation in socks glove pattern Medications: Scheduled Medications: sodium chloride 1,000 mL IntraVENous Once gabapentin 200 mg Oral TID lidocaine 1 patch TransDERmal Daily potassium bicarb-citric acid 40 mEq Oral Daily valproic acid 250 mg Oral BID fluconazole 200 mg Oral Daily lisinopril 10 mg Oral Daily levothyroxine 100 mcg Oral Daily [Held by provider] insulin glargine 16 Units SubCUTAneous Daily [Held by provider] aspirin 81 mg Oral Daily nafcillin 2,000 mg IntraVENous Q4H carvedilol 25 mg Oral BID WC sodium chloride flush 5-40 mL IntraVENous 2 times per day [Held by provider] enoxaparin 40 mg SubCUTAneous Daily latanoprost 1 drop Both Eyes Nightly insulin lispro 0-12 Units SubCUTAneous TID WC insulin lispro 0-6 Units SubCUTAneous Nightly Continuous Infusions: sodium chloride 75 mL/hr at 07/05/211930 dextrose PRN Medicationsmorphine, 1 mg, Q4H PRN potassium chloride, 40 mEq, PRN Or potassium alternative oral replacement, 40 mEq, PRN Or potassium chloride, 10 mEq, PRN sodium chloride flush, 10 mL, PRN sodium chloride flush, 10 mL, PRN loperamide, 2 mg, 4x Daily PRN sodium chloride flush, 10 mL, PRN tiZANidine, 2 mg, Q8H PRN fotwazdsgx-mubhgibhqbcqc-lysfxjsj, 1 tablet, Q4H PRN hydrALAZINE, 10 mg, Q4H PRN sodium chloride flush, 5-40 mL, PRN ondansetron, 4 mg, Q8H PRN Or ondansetron, 4 mg, Q6H PRN bisacodyl, 5 mg, Daily PRN sodium chloride flush, 5-40 mL, PRN labetalol, 10 mg, Q4H PRN glucose, 4 tablet, PRN dextrose bolus, 125 mL, PRN Or dextrose bolus, 250 mL, PRN glucagon (rDNA), 1 mg, PRN dextrose, 100 mL/hr, PRN Diagnostic Labs: CBC: Recent Labs 07/03/21 1637 07/04/21 0316 07/05/21 0517 WBC -- 10.4 10.0 RBC -- 2.79* 2.98* HGB 7.8* 7.4* 7.9* HCT 24.2* 22.8* 24.6* MCV -- 81.7* 82.6 RDW -- 16.9* 17.5* PLT -- 231 341 BMP: Recent Labs 07/04/21 0316 07/05/21 0517 07/05/21 1058 NA 138 138 -- K 3.5* 3.1* 3.8 CL 102 101 -- CO2 26 27 -- BUN 8 7 -- CREATININE 0.72 0.79 -- BNP: No results for input(s): BNP in the last 72 hours. PT/INR: No results for input(s): PROTIME, INR in the last 72 hours. APTT: No results for input(s): APTT in the last 72 hours. CARDIAC ENZYMES: No results for input(s): CKMB, CKMBINDEX, TROPONINI in the last 72 hours. Invalid input(s): CKTOTAL;3 FASTING LIPID PANEL: Lab Results Component Value Date CHOL 155 06/28/2021 HDL 71 06/28/2021 TRIG 105 06/28/2021 LIVER PROFILE: No results for input(s): AST, ALT, ALB, BILIDIR, BILITOT, ALKPHOS in the last 72 hours. MICROBIOLOGY: Lab Results Component Value Date/Time CULTURE POSITIVE Blood Culture (A) 07/04/2021 11:12 AM CULTURE 07/04/2021 11:12 AM DIRECT GRAM STAIN FROM BOTTLE: GRAM POSITIVE COCCI IN CLUSTERS CULTURE STAPHYLOCOCCUS AUREUS (A) 07/04/2021 11:12 AM CULTURE 07/04/2021 11:12 AM (NOTE) Direct Gram Stain from bottle result called to and read back by: RICH Miranda RN AT 0020 ON 07/05/21 Imaging: CT Head WO Contrast Result Date: 06/28/2021 1. Poorly diagnostic examination due to patient motion. 2. No gross evidence of hemorrhage or mass effect. A telephone call regarding the findings in examination and limitations the study was made to and acknowledged by Dr. Boothe in the emergency department at 4:55 AM on 06/28/2021. CT ABDOMEN PELVIS W IV CONTRAST Additional Contrast? None Result Date: 06/28/2021 1. No evidence of bowel obstruction. 2. Normal appendix. 3. Status post cholecystectomy. XR CHEST PORTABLE Result Date: 06/28/2021 No acute abnormality. CTA HEAD NECK W CONTRAST Result Date: 06/28/2021 Unremarkable CTA of the head and neck. ASSESSMENT & PLAN Sepsis with MSSA bacteremia; osteomyelitis of C2: -continu Nafcillin 2 g q 4 h. Stop date 07-29-21 per ID -Repeat blood cultures positive -echo normal. EF > 55%, no valvular abnormalities, no vegetations. - Erosive changes at craniocervical junction which may be related to arthritis or osteomyelitis by CT cervical spine 06-29-21 -left foot ulceration; Podiatry consulted for concern for osteomyelitis and possible source of MSSA bacteremia -XR left foot negative for osteomyelitis - CT chest showed right upper lobe pulmonary nodule -resp viral panel negative - Bone scan concerning for c1-c2 osteomyelitis osteomyelitis C1-C2 with epidural abscess Neurosurgery consulted. MRI cervical spine and brain confirms today small epidural abscess at C1/2 level with compression of the brainstem spinal cord junction. This appears to be slightly more compressive than a CT on 06/29. Plan for proptosis C1-2 laminectomy to decompress her spinal cord, and attempt drainage of epidural abscess, possible left C2 rhizotomy to treat her severe occipital neuralgia. Alan esophagitis: - on EGD 07/02/2021. On Diflucan 200 mg daily for 14 days. GI signed off. Hypothyroidism: -TSH low. - levothyroxine dose decreased from 112 mcg to 100 mcg daily Diabetes Mellitus type II: -medium dose ISS -hypoglycemia protocol - glucose checks q4 Essential hypertension: -BP running soft overnight.On Coreg and lisinopril. Hold antihypertensives. Elevated troponins: Downtrended likely type II AL Hypokalemia: K+ 3.2 today. Likely due to diarrhea. Repeat potassium level and replace if needed Left Vocal cord paralysis: Ongoing x 1 month. ENT on board. Plan for injection laryngoplasty for voice/swallowing improvement at some point. Passed swallow study. Rufus Argueta MD Internal Medicine Resident, PGY- [facility]; [place], [place] 07/06/2021, 7:41 AM Associated attestation - Johnny Robledo MD - 07/06/2021 1:45 PM EDT Attending Supervising Physician s Attestation Statement I have seen and examined Meg Georges and the coffey elements of all parts of the encounter have been performed by me. I agree with the assessment, plan and orders as documented by the Advanced Practice Provider. I discussed the findings and plans with the resident physician and agree as documented in their note . In addition to the pertinent positives and negatives as stated within HPI and the review of systems as documented in the notes, all other systems were reviewed when able to and are reported negative. Additional Comments: NS planning OR today, on IV abx per ID Comprehensive Nutrition Assessment Type and Reason for Visit: Initial (Length of stay) Nutrition Recommendations/Plan: 1. Recommend Easy to Chew diet with mildly thick liquids per OPERATIONS RECRUITER 2. Send Magic Cup ONS with meals Nutrition Assessment: Pt made NPO for MBSS d/t concern for aspiration. OPERATIONS RECRUITER recommending easy to chew and mildly thick liquids. Drowsy this morning. Did not eat much of meals today. Will add ONS in an attempt to support PO intake. Only stated weight available this admission. Nutrition Related Findings: meds/labs reviewed Wound Type: Diabetic Ulcer (L foot) Current Nutrition Intake & Therapies: Average Meal Intake: 1-25% (Observed) Average Supplements Intake: None Ordered ADULT DIET; Easy to Chew; Mildly Thick ([place]) Anthropometric Measures: Height: 5' 5 (165.1 cm) [place] Body Weight (IBW): 125 lbs (57 kg) Current Body Weight: 145 lb (65.8 kg), 116 % IBW. Weight Source: Stated Current BMI (kg/m2): 24.1 BMI Categories: Normal Weight (BMI 18.5-24.9) Estimated Daily Nutrient Needs: Energy Requirements Based On: Kcal/kg Weight Used for Energy Requirements: Current Energy (kcal/day): 9491-0856 kcals/day Weight Used for Protein Requirements: Current Protein (g/day): 1-1.2 gm/kg = 65-80 gm/day Method Used for Fluid Requirements: Other (Comment) Fluid (ml/day): per MD Nutrition Diagnosis: Predicted inadequate energy intake related to cognitive or neurological impairment,swallowing difficulty as evidenced by (need for ONS) Nutrition Interventions: Food and/or Nutrient Delivery: Modify Current Diet,Start Oral Nutrition Supplement Nutrition Education/Counseling: No recommendation at this time Coordination of Nutrition Care: Continue to monitor while inpatient Goals: Previous Goal Met: (goal set) Goals: PO intake 50% or greater,prior to discharge Nutrition Monitoring and Evaluation: Behavioral-Environmental Outcomes: None Identified Food/Nutrient Intake Outcomes: Food and Nutrient Intake,Supplement Intake Physical Signs/Symptoms Outcomes: Weight,Nutrition Focused Physical Findings,Biochemical Data,Chewing or Swallowing Discharge Planning: Too soon to determine Mary Acosta MS, RD, LD Contact: [phone] Images from the original note were not included. [facility] - Infectious diseases evaluation admission date 06/28/2021 reason for consultation: Sepsis with staph bacteremia Impression : Current: MSSA septicemia CRP elevation cerv spine osteomyelitis - erosions on CT and b scan bandemia Acute metabolic encephalopathy- resolving -LP neg CIDP chronic IVIG therapy - immunosuppressdUlcer on the left foot Allergy to keflex and avelox - tolerates PNC Other: Hypothyroidism Diabetes mellitus type 2 Essential hypertension Elevated troponin CIDP on IVIG infusions every 2 weeks Discussion / summary of stay / plan of care Recommendations Acute encephalopathy from sepsis - resolved - LP neg MSSA septicemia -persistent till 07/04 Echo neg for vegetation EMIR once C spine cleared for extension BC repeat till neg Nafcillin 2 g q 4 - watch WBC Cough - neg CT chest for septic emboli Neck new pain -1 Mo old - B scan / CT/ MRI + OM and epidural anterior abscess NS - NPO for cerv spine surg in am alan esophagitis on EGD 07/02 - fluconazole 200 daily CRP on the rise despite tx Infection Control Recommendations [place] Precautions Contact Isolation Antimicrobial Stewardship Recommendations Simplification of therapy Targeted therapy History of Present Illness: Initial history: Meg Georges is a 56 y.o.-year-old female presented to the ED for altered mental status. Patient is currently admitted under neurology service. Patient presented from a 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 after an episode of confusion overnight where she was found wandering outside her 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. She had CT head done at outside facility which did not show any acute changes, telestroke was consulted for the concern of confusion, they recommended transfer to [facility] for MRI of the brain. BC SA MSSA and LP neg CRP elevated and WBc up - creat normal 06/29 mentally recovered Neck pain x 1 mo Left sole callus was infected x 2 months ago [address] She gets her IvIg through a periph that gets pulled each time - no picc outpt Hoarse x some time wo reason Cough x 1 month Interval changes 07/05/2021 Patient Vitals for the past 8 hrs: BP Temp Temp src Pulse Resp SpO2 07/05/21 1208 22 07/05/21 1200 (!) 102/57 97.9 F (36.6 C) Oral 73 29 98 % 07/05/21 0820 124/78 85 07/05/21 0800 123/72 86 19 98 % 07/05: Patient is afebrile, hemodynamically stable with BP- 102/57 and saturating well on room air. CBC reviewed- WBC-10 Blood culture positive for Staph aureus CRP-186.3 on the rise still All BC so far + MSSA MRI C soine shows C spine epidural anterior abscess w OM - No weakness =but severe neck pain and CRP on the rise, BC all still +, hence suggest sx drainage if feasible 07/04:EGD 07/02 + alan esophagitis - starting fluconazole Still neck pain - MRI deferred due to metal in eye -bone scan ordered Still hoarse a little though better Labs reviewed 07/03/21 Neck pain ++ B scan + mets or infection - unclear CT c spine w erosions of the bone, infection or mets BC still + through 07/02 Did not meet criteria for the SA bacteremia research study Summary of relevant labs: Labs: CRP 150.7 - 191 - 186 procalcitonin 0.66, WBC-15 - 10 Micro: 06/29 -07/01 - 07 04 Blood Culture MSSA 06/29 LP -WBC 2 - RBC 1 - cx pend Imaging: I have personally reviewed the past medical history, past surgical history, medications, social history, and family history, and I haveupdated the database accordingly. Allergies: Moxifloxacin, Peg 3350-electrolytes, Tapentadol, Avelox [moxifloxacin hydrochloride], and Cephalexin Review of Systems: Review of Systems Constitutional: Negative for activity change. HENT: Negative for congestion. Hoarse Eyes: Negative for discharge. Respiratory: Negative for apnea. Cardiovascular: Negative for chest pain. Gastrointestinal: Negative for abdominal distention. Endocrine: Negative for heat intolerance. Genitourinary: Negative for dysuria. Musculoskeletal: Positive for neck pain. Skin: Negative for color change. Rash: left sole under MTS head 1. Allergic/Immunologic: Negative for immunocompromised state. Neurological: Negative for dizziness. Hematological: Negative for adenopathy. Psychiatric/Behavioral: Negative for agitation. Physical Examination : Physical Exam Constitutional: Appearance: Normal appearance. She is not ill-appearing. HENT: Head: Normocephalic and atraumatic. Nose: Nose normal. Mouth/Throat: Mouth: Mucous membranes are moist. Eyes: Conjunctiva/sclera: Conjunctivae normal. Pupils: Pupils are equal, round, and reactive to light. Cardiovascular: Rate and Rhythm: Normal rate and regular rhythm. Heart sounds: Normal heart sounds. Pulmonary: Effort: No respiratory distress. Breath sounds: Normal breath sounds. Abdominal: General: There is no distension. Palpations: Abdomen is soft. Tenderness: There is no abdominal tenderness. Genitourinary: Comments: Urine chanda Musculoskeletal: General: No swelling, tenderness or deformity. Cervical back: No rigidity. Skin: Coloration: Skin is not jaundiced. Findings: No bruising. Neurological: General: No focal deficit present. Mental Status: She is alert and oriented to person, place, and time. Cranial Nerves: No cranial nerve deficit. Psychiatric: Mood and Affect: Mood normal. Past Medical History: Past Medical History: Diagnosis Date Asthma Cardiac murmur Diabetes mellitus (HCC) GERD (gastroesophageal reflux disease) Hyperlipidemia Hypertension Neuropathy Radiculopathy Spinal stenosis Thyroid disease Past Surgical History: Past Surgical History: Procedure Laterality Date ACHILLES TENDON SURGERY left BACK SURGERY L 4 and 5 1995, 1996 CHOLECYSTECTOMY EYE SURGERY [place] 250 shunt for open angle glaucoma. MRI compatible- device is all silicone SHOULDER SURGERY right UPPER GASTROINTESTINAL ENDOSCOPY N/A 07/02/2021 EGD ESOPHAGOGASTRODUODENOSCOPY performed by Hari Wagner MD at [facility] Endoscopy Medications: gabapentin 200 mg Oral TID lidocaine 1 patch TransDERmal Daily potassium bicarb-citric acid 40 mEq Oral Daily valproic acid 250 mg Oral BID fluconazole 200 mg Oral Daily lisinopril 10 mg Oral Daily levothyroxine 100 mcg Oral Daily [Held by provider] insulin glargine 16 Units SubCUTAneous Daily aspirin 81 mg Oral Daily nafcillin 2,000 mg IntraVENous Q4H carvedilol 25 mg Oral BID WC sodium chloride flush 5-40 mL IntraVENous 2 times per day enoxaparin 40 mg SubCUTAneous Daily latanoprost 1 drop Both Eyes Nightly insulin lispro 0-12 Units SubCUTAneous TID WC insulin lispro 0-6 Units SubCUTAneous Nightly Social History: Social History Socioeconomic History Marital status: Spouse name: Not on file Number of children: Not on file Years of education: Not on file Highest education level: Not on file Occupational History Not on file Tobacco Use Smoking status: Former Smoker Years: 20.00 Types: Cigarettes Quit date: 10/06/1995 Years since quittin.7 Smokeless tobacco: Never Used Substance and Sexual Activity Alcohol use: No Drug use: No Sexual activity: Not on file Other Topics Concern Not on file Social History Narrative Not on file Social Determinants of Health Financial Resource Strain: Difficulty of Paying Living Expenses: Not on file Food Insecurity: Worried About Running Out of Food in the Last Year: Not on file Ran Out of Food in the Last Year: Not on file Transportation Needs: Lack of Transportation (Medical): Not on file Lack of Transportation (Non-Medical): Not on file Physical Activity: Days of Exercise per Week: Not on file Minutes of Exercise per Session: Not on file Stress: Feeling of Stress : Not on file Social Connections: Frequency of Communication with Friends and Family: Not on file Frequency of Social Gatherings with Friends and Family: Not on file Attends Mosque Services: Not on file Active Member of Clubs or Organizations: Not on file Attends Club or Organization Meetings: Not on file Marital Status: Not on file Intimate Partner Violence: Fear of Current or Ex-Partner: Not on file Emotionally Abused: Not on file Physically Abused: Not on file Sexually Abused: Not on file Housing Stability: Unable to Pay for Housing in the Last Year: Not on file Number of Places Lived in the Last Year: Not on file Unstable Housing in the Last Year: Not on file Family History: Family History Problem Relation Age of Onset Diabetes Mother Cancer Father Medical Decision Making: I have independently reviewed/ordered the following labs: CBC with Differential: Recent Labs 07/04/21 0316 07/05/21 0517 WBC 10.4 10.0 HGB 7.4* 7.9* HCT 22.8* 24.6* PLT 231 341 LYMPHOPCT 22* 26 MONOPCT 5 4 BMP: Recent Labs 07/04/21 0316 07/04/21 0316 07/05/21 0517 07/05/21 1058 NA 138 -- 138 -- K 3.5* < > 3.1* 3.8 CL 102 -- 101 -- CO2 26 -- 27 -- BUN 8 -- 7 -- CREATININE 0.72 -- 0.79 -- MG 1.8 -- 1.9 -- < > = values in this interval not displayed. Hepatic Function Panel: No results for input(s): PROT, LABALBU, BILIDIR, IBILI, BILITOT, ALKPHOS, ALT, AST in the last 72 hours. No results for input(s): RPR in the last 72 hours. No results for input(s): HIV in the last 72 hours. No results for input(s): BC in the last 72 hours. Lab Results Component Value Date CREATININE 0.79 07/05/2021 GLUCOSE 136 07/05/2021 GLUCOSE 229 06/04/2011 Detailed results: Thank you for allowing us to participate in the care of this patient.Please call with questions. This note is created with the assistance of a speech recognition program. While intending to generate adocument that actually reflects the content of the visit, the document can still have some errors including those of syntax and sound a like substitutions which may escape proof reading. It such instances, actual meaningcan be extrapolated by contextual diversion. Luana Negrete MD Office: [facility] / office [phone] I have discussed the care of the patient, including pertinent history and exam findings, with the resident. I have seen and examined the patient and the coffey elements of all parts of the encounter have been performed by me. I agree with the assessment, plan and orders as documented by the resident. Meka Crowe, Infectious Diseases Images from the original note were not included. Physical Therapy Physical Therapy Cancel Note DATE: 07/05/2021 NAME: Meg Georges : 1965 Patient not seen this date for Physical Therapy due to: Other: Pt currently out of room at this time, Will check back as able. Images from the original note were not included. [facility] Internal Medicine Teaching Residency Program Inpatient Daily Progress Note __ Patient: Meg Georges Date of : 1965 Acct: [id number] Room: [id number] Admit date: 06/28/2021 Today's date: 07/05/21 Number of days in the hospital: 7 SUBJECTIVE Admitting Diagnosis: Sepsis (HCC) CC: altered mentation Pt examined at bedside. Chart & results reviewed. Hemodynamically stable. Afebrile. MRI c-spine compatible with osteomyelitis C2. Neuro surgery and patient to discuss about surgical options. Completed echo; may need EMIR ff clearance for neck extension by NS On daily potassium supplements EGD revealed alan esophagitis. On fluconazole. BC positive 07/04. On nafcillin ROS: Constitutional: negative for chills, fevers, sweats Respiratory: negative for cough, dyspnea on exertion, hemoptysis, shortness of breath, wheezing Cardiovascular: negative for chest pain, chest pressure/discomfort, lower extremity edema, palpitations Gastrointestinal: negative for abdominal pain, constipation, diarrhea, nausea, vomiting Neurological: negative for dizziness, positive for headache BRIEF HISTORY The patient is a pleasant 56 y.o. female presents with a chief complaint of altered mentation. 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 Presented to ED from 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, found confused outside. Imaging negative. She complains of headache /, not sure how she got to ED. Denies fever, vomiting, chest kristan, cough, SOB, abdominal pain. States last BM yesterday soft. Patient somnolent but arousable, follows command, hypertensive BP as high as 202/105, HR 110, on room air. Significant labs include glycemia 254, wbc 22. Lumbar tap done. Not concerning for acute meningitis. OBJECTIVE Vital Signs: BP 124/78 Pulse 85 Temp 97.8 F (36.6 C) (Oral) Resp 19 Ht 5' 5 (1.651 m) Wt 145 lb (65.8 kg) LMP 12/02/2011 SpO2 96% BMI 24.13 kg/m Temp (24hrs), Av.9 F (36.6 C), Min:97.8 F (36.6 C), Max:98.3 F (36.8 C) In: - Out: 1300 [Urine:1300] Physical Exam: Constitutional: This is a well developed, well nourished, 18.5-24.9 - Normal 56 y.o. year old female who is alert, oriented, cooperative. Head:normocephalic and atraumatic. EENT: PERRLA. No conjunctival injections. Septum was midline, mucosa was without erythema, exudates or cobblestoning. No thrush was noted. Neck: Supple without thyromegaly. No palpable lymphadenopathy. Generalized tenderness anterior neck. No elevated JVP. Trachea was midline. Respiratory: Chest was symmetrical without dullness to percussion. Breath sounds bilaterally were clear to auscultation. There were no wheezes, rhonchi or rales. There is no intercostal retraction or use of accessory muscles. No egophony noted. Cardiovascular: Regular without murmur, clicks, gallops or rubs. Abdomen: Slightly rounded and soft without organomegaly. No rebound, rigidity or guarding was appreciated. Lymphatic: No lymphadenopathy. Musculoskeletal: Normal curvature of the spine. No gross muscle weakness. Extremities: No lower extremity edema, ulcerations, tenderness, varicosities or erythema. Muscle size, tone and strength are normal. No involuntary movements are noted. Skin: Ulcer present on left foot. Loss of sensation Neurological/Psychiatric: Patient alert and oriented x 3, memory intact, concentration preserved. Moves all extremities.decreased sensation in socks glove pattern Medications: Scheduled Medications: gabapentin 200 mg Oral TID lidocaine 1 patch TransDERmal Daily potassium bicarb-citric acid 40 mEq Oral Daily valproic acid 250 mg Oral BID fluconazole 200 mg Oral Daily lisinopril 10 mg Oral Daily levothyroxine 100 mcg Oral Daily [Held by provider] insulin glargine 16 Units SubCUTAneous Daily aspirin 81 mg Oral Daily nafcillin 2,000 mg IntraVENous Q4H carvedilol 25 mg Oral BID WC sodium chloride flush 5-40 mL IntraVENous 2 times per day enoxaparin 40 mg SubCUTAneous Daily latanoprost 1 drop Both Eyes Nightly insulin lispro 0-12 Units SubCUTAneous TID WC insulin lispro 0-6 Units SubCUTAneous Nightly Continuous Infusions: dextrose PRN Medicationsmorphine, 1 mg, Q4H PRN sodium chloride flush, 10 mL, PRN loperamide, 2 mg, 4x Daily PRN sodium chloride flush, 10 mL, PRN tiZANidine, 2 mg, Q8H PRN kgrwbfsbps-vetuaxxxedtpc-nwogeorw, 1 tablet, Q4H PRN hydrALAZINE, 10 mg, Q4H PRN sodium chloride flush, 5-40 mL, PRN ondansetron, 4 mg, Q8H PRN Or ondansetron, 4 mg, Q6H PRN bisacodyl, 5 mg, Daily PRN sodium chloride flush, 5-40 mL, PRN labetalol, 10 mg, Q4H PRN glucose, 4 tablet, PRN dextrose bolus, 125 mL, PRN Or dextrose bolus, 250 mL, PRN glucagon (rDNA), 1 mg, PRN dextrose, 100 mL/hr, PRN Diagnostic Labs: CBC: Recent Labs 07/03/2143807/03/2143807/03/21163607/04/2131507/05/21 05 WBC 13.6* -- -- 10.4 10.0 RBC 3.22* -- -- 2.79* 2.98* HGB 8.4* < > 7.8* 7.4* 7.9* HCT 26.1* < > 24.2* 22.8* 24.6* MCV 81.1* -- -- 81.7* 82.6 RDW 16.5* -- -- 16.9* 17.5* PLT 261 -- -- 231 341 < > = values in this interval not displayed. BMP: Recent Labs 07/03/2143807/03/2143807/03/21163607/04/2131507/05/21 0517 NA 134* -- -- 138 138 K 2.9* < > 3.4* 3.5* 3.1* CL 98 -- -- 102 101 CO2 25 -- -- 26 27 BUN 7 -- -- 8 7 CREATININE 0.81 -- -- 0.72 0.79 < > = values in this interval not displayed. BNP: No results for input(s): BNP in the last 72 hours. PT/INR: No results for input(s): PROTIME, INR in the last 72 hours. APTT: No results for input(s): APTT in the last 72 hours. CARDIAC ENZYMES: No results for input(s): CKMB, CKMBINDEX, TROPONINI in the last 72 hours. Invalid input(s): CKTOTAL;3 FASTING LIPID PANEL: Lab Results Component Value Date CHOL 155 06/28/2021 HDL 71 06/28/2021 TRIG 105 06/28/2021 LIVER PROFILE: No results for input(s): AST, ALT, ALB, BILIDIR, BILITOT, ALKPHOS in the last 72 hours. MICROBIOLOGY: Lab Results Component Value Date/Time CULTURE POSITIVE Blood Culture (A) 07/04/2021 11:12 AM CULTURE 07/04/2021 11:12 AM DIRECT GRAM STAIN FROM BOTTLE: GRAM POSITIVE COCCI IN CLUSTERS CULTURE 07/04/2021 11:12 AM (NOTE) Direct Gram Stain from bottle result called to and read back by: RICH Miranda RN AT 0020 ON 07/05/21 Imaging: CT Head WO Contrast Result Date: 06/28/2021 1. Poorly diagnostic examination due to patient motion. 2. No gross evidence of hemorrhage or mass effect. A telephone call regarding the findings in examination and limitations the study was made to and acknowledged by Dr. Boothe in the emergency department at 4:55 AM on 06/28/2021. CT ABDOMEN PELVIS W IV CONTRAST Additional Contrast? None Result Date: 06/28/2021 1. No evidence of bowel obstruction. 2. Normal appendix. 3. Status post cholecystectomy. XR CHEST PORTABLE Result Date: 06/28/2021 No acute abnormality. CTA HEAD NECK W CONTRAST Result Date: 06/28/2021 Unremarkable CTA of the head and neck. ASSESSMENT & PLAN Sepsis with MSSA bacteremia; osteomyelitis of C2: -continu Nafcillin 2 g q 4 h. Stop date 07-29-21 per ID -Repeat blood cultures positive -echo normal. EF > 55%, no valvular abnormalities, no vegetations. - Erosive changes at craniocervical junction which may be related to arthritis or osteomyelitis by CT cervical spine 06-29-21 -left foot ulceration; Podiatry consulted for concern for osteomyelitis and possible source of MSSA bacteremia -XR left foot negative for osteomyelitis - CT chest showed right upper lobe pulmonary nodule -resp viral panel negative - Bone scan concerning for c1-c2 osteomyelitis osteomyelitis C1-C2 Neurosurgery consulted. Pending discussion between neurosurgery and patient for decision regarding surgery. Alan esophagitis: - on EGD 07/02/2021. On Diflucan 200 mg daily for 14 days. GI signed off. Hypothyroidism: -TSH low. - levothyroxine dose decreased from 112 mcg to 100 mcg daily Diabetes Mellitus type II: -medium dose ISS -hypoglycemia protocol - glucose checks q4 Essential hypertension: -On Coreg and lisinopril. Currently controlled Elevated troponins: Downtrended likely type II AL -echo done Hypokalemia: K+ 3.1 today. On daily 40 replacement. Repeat potassium level and replace if needed Left Vocal cord paralysis: Ongoing x 1 month. ENT on board. Plan for injection laryngoplasty for voice/swallowing improvement at some point. Passed swallow study. Tami Vega MD Internal Medicine Resident, PGY- [facility]; [place], [place] 07/05/2021, 10:37 AM Associated attestation - Johnny Robledo MD - 07/05/2021 4:07 PM EDT Attending Supervising Physician s Attestation Statement I have seen and examined Meg Georges and the coffey elements of all parts of the encounter have been performed by me. I agree with the assessment, plan and orders as documented by the Advanced Practice Provider. I discussed the findings and plans with the resident physician and agree as documented in their note . In addition to the pertinent positives and negatives as stated within HPI and the review of systems as documented in the notes, all other systems were reviewed when able to and are reported negative. Additional Comments: blood cultures remain positive, possible surgical intervention per NS, patient undecided. Continue antibiotics per ID Images from the original note were not included. NEUROLOGY INPATIENT PROGRESS NOTE 07/05/2021 Current Exam: Chart reviewed. Discussed with RN. Eye implant is MRI compatible; MRI cervical spine ordered by neurosurgery showing osteomyelitis of the odontoid process extending into the body of C2 as well as the inferior portion of the clivus with moderate surrounding inflammation at the C1-C2 articulations compatible with surrounding phlegmon. There is also suspected stable tiny ventral epidural abscess and stable moderate narrowing of the spinal canal identified at the foramen magnum. RN reports concern of possible aspiration with meals; will plan to repeat MBSS. She continues to have pain in the cervical spine region radiating up to the left side of her head. Brief History: Meg Georges is a 56 y.o. 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 She was found wandering outside of her 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. She was admitted to the medicine team and was found to have sepsis as well as a GI bleed. Neurology was consulted due to altered mentation and headache. CT head was done and was unremarkable. CTA head neck unremarkable. EEG was normal. Spinal tap was done in the ED with CSF studies negative for meningitis or SOAP MAKER infection. For her headache she was placed on Depacon with relief and also received IV mag and Fioricet. Muscle relaxer was added due to tenderness of to palpation in the left paraspinal cervical musculature. Neurology later asked to evaluate for CIDP being the cause behind patient's vocal cord paralysis. Patient reports she has had her hoarse voice for the past one month, since she entered her nursing facility. She denies any other associated symptoms she typically feels when she is having a CIDP flare. She had been getting IVIG every 2 weeks with her last dose being at the end of April. She denies any respiratory distress, trouble swallowing, or increased weakness to her arms and legs. No current facility-administered medications on file prior to encounter. Current Outpatient Medications on File Prior to Encounter Medication Sig Dispense Refill insulin glargine (LANTUS) 100 UNIT/ML injection vial Inject 16 Units into the skin nightly brimonidine (ALPHAGAN P) 0.15 % ophthalmic solution Apply 1 drop to eye 2 times daily Left eye carvedilol (COREG) 25 MG tablet Take 25 mg by mouth 2 times daily (with meals) HYDROcodone-acetaminophen (NORCO) 5-325 MG per tablet Take 1 tablet by mouth every 4 hours as needed for Pain. insulin lispro (HUMALOG KWIKPEN) 100 UNIT/ML pen Inject 30 Units into the skin 3 times daily (before meals) Sliding scale coverage- Use less than 30 units with sliding scale aspirin 325 MG tablet Take 325 mg by mouth daily latanoprost (XALATAN) 0.005 % ophthalmic solution Place 1 drop into both eyes nightly lisinopril (PRINIVIL;ZESTRIL) 10 MG tablet Take 10 mg by mouth daily tiZANidine (ZANAFLEX) 4 MG tablet Take 4 mg by mouth as needed dorzolamide-timolol (COSOPT) 22.3-6.8 MG/ML ophthalmic solution Place 1 drop into the right eye 2 times daily Multiple Vitamins-Minerals (MULTIVITAMIN ADULT PO) Take 1 tablet by mouth daily levothyroxine (SYNTHROID) 112 MCG tablet Take 112 mcg by mouth Daily Allergies: Meg Georges is allergic to moxifloxacin, peg 3350-electrolytes, tapentadol, avelox [moxifloxacin hydrochloride], and cephalexin. Past Medical History: Diagnosis Date Asthma Cardiac murmur Diabetes mellitus (HCC) Foreign body of left eye Pt had hx of MRI clearance and has a foreign body in left eye. Per neuro radiologist Dr. veliz, no MRI until that foreign object in left eye is figured out. GERD (gastroesophageal reflux disease) Hyperlipidemia Hypertension Neuropathy Radiculopathy Spinal stenosis Thyroid disease Past Surgical History: Procedure Laterality Date ACHILLES TENDON SURGERY left BACK SURGERY L 4 and 5 1995, 1996 CHOLECYSTECTOMY SHOULDER SURGERY right UPPER GASTROINTESTINAL ENDOSCOPY N/A 07/02/2021 EGD ESOPHAGOGASTRODUODENOSCOPY performed by Hari Wagner MD at [facility] Endoscopy Social History: Meg Georges reports that she quit smoking about 25 years ago. Her smoking use included cigarettes. She quit after 20.00 years of use. She has never used smokeless tobacco. She reports that she does not drink alcohol and does not use drugs. Family History Problem Relation Age of Onset Diabetes Mother Cancer Father Objective: BP 124/78 Pulse 85 Temp 97.8 F (36.6 C) (Oral) Resp 19 Ht 5' 5 (1.651 m) Wt 145 lb (65.8 kg) LMP 12/02/2011 SpO2 96% BMI 24.13 kg/m Blood pressure range: Systolic (24hrs), Av , Min:114 , Max:148 ; Diastolic (24hrs), Av, Min:61, Max:78 Review of Systems: Constitutional Negative for fever and chills HEENT Negative for ear discharge, ear pain, nosebleed. + headache with cervical neck pain, + hoarse voice Eyes Negative for photophobia, pain and discharge Respiratory Negative for hemoptysis and sputum Cardiovascular Negative for orthopnea, claudication and PND Gastrointestinal Negative for abdominal pain, diarrhea, blood in stool Musculoskeletal Negative for joint pain, negative for myalgia Skin Negative for rash or itching Endo/heme/allergies Negative for polydipsia, environmental allergy Psychiatric/behavioral Negative for suicidal ideation. Patient is not anxious NEUROLOGIC EXAMINATION GENERAL Appears comfortable and in no distress HEENT NC/ AT NECK Supple MENTAL STATUS: Alert, oriented, intact memory, no confusion, quiet/hoarse speech, normal language, no hallucination or delusion CRANIAL NERVES: II - Visual bobo intact to confrontation III,IV, - EOMs full, no afferent defect, no JOHANNE, no ptosis V - Normal facial sensation VII - Normal facial symmetry VIII - Intact hearing IX,X - Symmetrical palate XI - Symmetrical shoulder shrug XII - Midline tongue, no atrophy MOTOR FUNCTION: 5/5 to BUE, 4/5 to BLE with normal bulk, normal tone and no involuntary movements, no tremor SENSORY FUNCTION: Decreased sensation BLE (chronic) CEREBELLAR FUNCTION: Intact fine motor control over upper limbs REFLEX FUNCTION: Symmetric, no perverted reflex, no Babinski sign STATION and GAIT Not tested Data: Lab Results: CBC: Recent Labs 07/03/21 04307/03/219 07/03/21 1637 07/04/21 0316 07/05/21 0517 WBC 13.6* -- -- 10.4 10.0 HGB 8.4* < > 7.8* 7.4* 7.9* PLT 261 -- -- 231 341 < > = values in this interval not displayed. BMP: Recent Labs 07/03/21 04307/03/21 0439 07/03/21 1637 07/04/21 0316 07/05/21 0517 NA 134* -- -- 138 138 K 2.9* < > 3.4* 3.5* 3.1* CL 98 -- -- 102 101 CO2 25 -- -- 26 27 BUN 7 -- -- 8 7 CREATININE 0.81 -- -- 0.72 0.79 GLUCOSE 108* -- -- 122* 136* < > = values in this interval not displayed. Lab Results Component Value Date CHOL 155 06/28/2021 LDLCHOLESTEROL 63 06/28/2021 HDL 71 06/28/2021 TRIG 105 06/28/2021 ALT 19 06/28/2021 AST 19 06/28/2021 TSH 0.15 (L) 06/28/2021 INR 1.2 06/28/2021 LABA1C 9.4 (H) 06/28/2021 LABMICR 7 06/25/2013 [id number] 06/28/2016 Diagnostic data reviewed: CT HEAD (06/28/21) - 1. Poorly diagnostic examination due to patient motion. 2. No gross evidence of hemorrhage or mass effect. CTA HEAD AND NECK (06/28/21) - Unremarkable CTA of the head and neck. CT CERVICAL SPINE (06/29/21) - Erosive changes identified at the craniocervical junction other may related to nonspecific inflammatory arthropathy/rheumatoid arthritis, given the degree of erosions involving the clivus and both lateral mass identified both condyles, infection/underlying possibility of underlying osteomyelitis should be considered in the appropriate clinical setting. MRI could be beneficial for more definitive characterization. MRI CERVICAL (07/05/21) - Osteomyelitis involving the odontoid process extending into the body of C2 as well as the inferior portion of the clivus. Moderate surrounding inflammation at the C1-C2 articulations compatible with surrounding phlegmon. These changes were similarly present on previous CT of the cervical spine. There is a suspected stable tiny ventral epidural abscess measuring 0.9 x 0.3 cm. Stable moderate narrowing of the spinal canal is identified at the foramen magnum. Mild central canal stenosis and moderate left foraminal stenosis at C6-C7. EEG (06/29/21) - Normal awake and sleep EEG. ECHO (07/03/21) - Normal LV size and wall thickness. No obvious wall motion abnormality seen. Normal LV systolic function with LVEF >55%. Normal RV size and function. LA and RA appears normal in size.Difficult to R/O small PFO No obvious significant structural valvular abnormality noted. No significant valvular stenosis or regurgitation noted. Normal aortic root dimension. No significant pericardial effusion noted. No obvious evidence of endocarditis noted. IVC normal diameter and inspiratory variation indicating normal RA filling Pressure. Impression: -Acute metabolic encephalopathy in the setting of MSSA bacteremia, sepsis; resolved -Osteomyelitis of odontoid process extending into body of C2 and clivus -Acute intractable headache with cervical neck pain secondary to above -GI bleed -History of CIDP -Vocal cord paralysis Plan: -Will repeat MBSS -Hold off on IVIG presently given active infection; continue to monitor for symptoms of CIDP -CSF studies are negative for SOAP MAKER infection -Continue Depakene 250mg BID for headache -GI is following, patient is s/p EGD with findings suggestive of Alan esophagitis -ID is following; patient remains on antibiotics -Neurosurgery is following, deciding on surgery vs abx treatment -PT/OT -We will follow Please note that this note was generated using a voice recognition dictation software. Although every effort was made to ensure the accuracy of this automated dampener, some errors in dampener may have occurred. Neurosurgery NATE/Resident Daily Progress Note CC: Chief Complaint Patient presents with Altered Mental Status 07/05/2021 6:27 AM Chart reviewed. No acute events overnight. No new complaints. MRI cervical spine completed yesterday showing Osteomyelitis involving the odontoid process extending into the body of C2 as well as the inferior portion of the clivus. Moderate surrounding inflammation at the C1-C2 articulations compatible with surrounding phlegmon, ventral epidural abscess 0.9x0.3cm, moderate narrowing at foramen magnum. Neurology following pending MRI brain and swallow eval due to new onset dysphagia She was coughing a little on water when I went to see her Component 07/04/21 1112 Specimen Description .BLOOD P Special Requests L HAND 20ML P Culture POSITIVE Blood Culture Abnormal P Culture DIRECT GRAM STAIN FROM BOTTLE: GRAM POSITIVE COCCI IN CLUSTERS P Culture (NOTE) Direct Gram Stain from bottle result called to and read back by: RICH Miranda RN AT 0020 ON 07/05/21 Component 07/04/21 1104 Specimen Description .BLOOD P Special Requests R HAND 10ML P Culture POSITIVE Blood Culture Abnormal P Culture DIRECT GRAM STAIN FROM BOTTLE: GRAM POSITIVE COCCI IN CLUSTERS P Culture (NOTE) Direct Gram Stain from bottle result called to and read back by: RICH Miranda 07/05/21 0115 P Blood cultures continue to be positive since 06/30 CRP from 191-186.3 WBC 10 Vitals: 07/04/21 1559 07/04/21 2000 07/05/21 0000 07/05/21 0400 BP: 130/71 130/62 118/61 114/62 Pulse: 85 84 85 80 Resp: 15 29 16 Temp: 98 F (36.7 C) 97.8 F (36.6 C) 97.8 F (36.6 C) 97.8 F (36.6 C) TempSrc: Axillary Oral Oral Oral SpO2: 100% 97% 98% 96% Weight: Height: PE: AOx3 PERRL, EOMI Motor L deltoid 5/5; R deltoid 5/5 L biceps 5/5; R biceps 5/5 L triceps 5/5; R triceps 5/5 L wrist extension 5/5; R wrist extension 5/5 L intrinsics 5/5; R intrinsics 5/5 L iliopsoas 5/5 , R iliopsoas 5/5 L quadriceps 5/5; R quadriceps 5/5 L Dorsiflexion 3/5; R dorsiflexion 3/5 L Plantarflexion 5/5; R plantarflexion 5/5 L EHL 5/5; R EHL 5/5 some weakness in bilateral DF Sensation: numbness bilateral hands and feet Lab Results Component Value Date WBC 10.0 07/05/2021 HGB 7.9 (L) 07/05/2021 HCT 24.6 (L) 07/05/2021 PLT 341 07/05/2021 CHOL 155 06/28/2021 TRIG 105 06/28/2021 HDL 71 06/28/2021 ALT 19 06/28/2021 AST 19 06/28/2021 NA 138 07/05/2021 K 3.1 (L) 07/05/2021 CL 101 07/05/2021 CREATININE 0.79 07/05/2021 BUN 7 07/05/2021 CO2 27 07/05/2021 TSH 0.15 (L) 06/28/2021 INR 1.2 06/28/2021 LABA1C 9.4 (H) 06/28/2021 LABMICR 7 06/25/2013 CRP 186.3 (H) 07/05/2021 Radiology MRI CERVICAL SPINE W WO CONTRAST Result Date: 07/05/2021 EXAMINATION: MRI OF THE CERVICAL SPINE WITHOUT AND WITH CONTRAST 07/04/2021 7:22 pm: TECHNIQUE: Multiplanar multisequence MRI of the cervical spine was performed without and with the administration of intravenous contrast. COMPARISON: CT cervical spine 06/29/2021 HISTORY: ORDERING SYSTEM PROVIDED HISTORY: Osteo C1-2 TECHNOLOGIST PROVIDED HISTORY: Osteo C1-2 Reason for Exam: Osteo C1-2 FINDINGS: BONES/ALIGNMENT: There is normal alignment of the spine. The vertebral body heights are maintained. No acute fracture is identified. Mild central canal and spinal canal stenosis is identified. Moderate degenerative endplate changes are identified at C6-C7. Abnormal edema is present within the odontoid process extending into the body of C2. There is surrounding inflammation. Soft tissue surrounding the C1-C2 articulation is identified likely representing phlegmon from osteomyelitis at C2. Tiny ventral epidural fluid collection is identified at C1 measuring 0.9 x 0.3 cm. This finding likely represents a small epidural abscess. Moderate central canal stenosis is identified at the foramen magnum partially due to the inflammatory changes posterior to the odontoid process as well as congenitally narrow spinal canal. Additional mild edema enhancement is identified within the clivus at the inferior aspect. SPINAL CORD: No abnormal cord signal is seen. SOFT TISSUES: Significant surrounding enhancement is identified at the C1-C2 articulation compatible with inflammation/phlegmon. C2-C3: There is no significant disc protrusion, spinal canal stenosis or neural foraminal narrowing. C3-C4: There is no significant disc protrusion, spinal canal stenosis or neural foraminal narrowing. C4-C5: There is no significant disc protrusion, spinal canal stenosis or neural foraminal narrowing. C5-C6: Mild right foraminal stenosis is identified due to uncovertebral joint hypertrophy. C6-C7: Moderate left foraminal stenosis is identified due to uncovertebral joint hypertrophy and mild facet disease. Annular disc bulge flattens the thecal sac. The central canal is mildly stenotic C7-T1: There is no significant disc protrusion, spinal canal stenosis or neural foraminal narrowing. Osteomyelitis involving the odontoid process extending into the body of C2 as well as the inferior portion of the clivus. Moderate surrounding inflammation at the C1-C2 articulations compatible with surrounding phlegmon. These changes were similarly present on previous CT of the cervical spine. There is a suspected stable tiny ventral epidural abscess measuring 0.9 x 0.3 cm. Stable moderate narrowing of the spinal canal is identified at the foramen magnum. Mild central canal stenosis and moderate left foraminal stenosis at C6-C7. A/P 56 y.o. female who presents with osteomyelitis of odontoid process, body of C2 and inferior portion of clivus, ventral epidural abscess - Neuro checks per floor protocol - recommend NPO at this time until swallow eval completed - Dr Crump to discuss options regarding Abx vs surgical Please contact neurosurgery with any changes in patients neurologic status. Kam Prado, BRIDGER 07/05/21 6:27 AM Associated attestation - Alisia Crump DO - 07/05/2021 7:36 PM EDT Neurosurgery attending: Patient seen 07/05/2021 I have reviewed the chart, studied the images, and examined the patient personally and agree with the NATE/Resident except with following addendum: 56-year-old with severe left occipital neuralgia, left cord paralysis, developing silent aspiration today, known C1/2 clival osteomyelitis, and MRI cervical spine and brain confirms today small epidural abscess at C1/2 level with compression of the brainstem spinal cord junction. This appears to be slightly more compressive than a CT on 06/29. Blood culture has still been positive for 6 days overall despite on appropriate antibiotics. CRP remains high in the 180s. Case discussed with . She did asked me for surgical drainage of abscess if technically feasible. There is also unilateral poor alignment of the left occipital atlantal joint, which likely contributes to her symptoms, and sign of instability. At this moment surgical stabilization and fusion may be too high risk for failure of hardware. I discussed at length with patient and her sister about the diagnosis prognosis and the needed treatment I do recommend a proptosis C1-2 laminectomy to decompress her spinal cord, and attempt drainage of epidural abscess, possible left C2 rhizotomy to treat her severe occipital neuralgia. She would likely need delayed surgical stabilization and likely a occipital cervical fusion once infection is more controlled I explained to the patient the several indications for surgery, the expected outcomes, the alternatives to surgery include no surgery, delayed surgery, The risk includes bleeding, pain, infection, CSF leak, dysphagia, vocal cord paralysis, spinal cord/nerve damage, worsening symptoms, need for more surgery, anesthesia and medical complications, . All questions were answered and I was asked proceed with surgery Likely OR in AM unless sudden neurological deterioration X.Vaishali Crump DO Neurosurgeon Occupational Therapy Facility/Department: [address] [facility] Occupational Therapy Initial Assessment Name: Meg Georges : 1965 Date of Service: 07/04/2021 Chief Complaint Patient presents with Altered Mental Status Discharge Recommendations: Patient would benefit from continued therapy after discharge. Patient is currently unsafe to return to prior living arrangements without 24 hour assistance. OT Equipment Recommendations Equipment Needed: Yes. Equipment recommendations listed below are based on what the patient would need if they were able to return to prior living arrangements at the time of discharge. Mobility Devices: ADL Assistive Devices Walker: Rolling ADL Assistive Devices: Long-handled Sponge;Long-handled Shoe Horn;Plant Attendant;Sock-Aid Hard Patient Diagnosis(es): The primary encounter diagnosis was Stupor. A diagnosis of Encephalitis was also pertinent to this visit. Past Medical History: has a past medical history of Asthma, Cardiac murmur, Diabetes mellitus (HCC), Foreign body of left eye, GERD (gastroesophageal reflux disease), Hyperlipidemia, Hypertension, Neuropathy, Radiculopathy, Spinal stenosis, and Thyroid disease. Past Surgical History: has a past surgical history that includes Cholecystectomy; shoulder surgery; Achilles tendon surgery; back surgery; and Upper gastrointestinal endoscopy (N/A, 07/02/2021). Assessment Performance deficits / Impairments: Decreased functional mobility ;Decreased ADL status;Decreased strength;Decreased endurance;Decreased cognition;Decreased safe awareness;Decreased balance;Decreased high-level IADLs Assessment: Pt agreeable to OT eval this date. Pt completes bed mobility sup<>sit with SBA and VCs for log roll technique. Pt sat unsupported for ~45 min. total during session (EOB and toilet.) Pt comlpetes dynamic sitting balance with SBA and static sitting balance with SUP. Pt completes functional sit<>stand transfers from EOB and functional mobility with Min. A and RW d/t decreased balance, generalized strength, and first time wearing L surgical shoe. Pt with slight unsteadiness during functional mobility, however no gross LOB. Pt completes toilet transfers with Mod. A and VCs for hand placement on RW and grab bar d/t decreased strength and balance. Pt required Mod. A for toileting and required assistance to pull up underwear. Pt completed pericare while seated without assistance and pulled underwear down using unilateral hand release without assistance, however Min. A required for standing balance. Pt limited by 10/10 lateral/posterior head and posterior neck pain throughout session and intermittently emotional d/t pain throughout. Pt demonstrates deficits in functional mobility, strength, balance, safety awareness, endurance, ADLs, and IADLs. Pt would benefit from continued OT services this date to increase independence and safety during self-care and functional mobility. Prognosis: Good Decision Making: Medium Complexity REQUIRES OT FOLLOW-UP: Yes Activity Tolerance Activity Tolerance: Patient limited by pain Plan Plan Times per Week: 3-5x/wk Current Treatment Recommendations: Strengthening,Balance training,Functional mobility training,Endurance training,Safety education & training,Pain management,Patient/Caregiver education & training,Equipment evaluation, education, & procurement,Home management training,Self-Care / ADL,Cognitive reorientation Restrictions Restrictions/Precautions Restrictions/Precautions: Fall Risk,Weight Bearing Required Braces or Orthoses?: Yes Lower Extremity Weight Bearing Restrictions Left Lower Extremity Weight Bearing: Weight Bearing As Tolerated (with surgical shoe) Required Braces or Orthoses Cervical: c-collar (Cervical collar on while out of bed. Ok to remove while resting in bed) Left Lower Extremity Brace: (with surgical shoe) Position Activity Restriction Other position/activity restrictions: Per Bhupendra with neurosurgery, no surgical interventions planned at this time and ok for therapy via [employer] Subjective General Patient assessed for rehabilitation services?: Yes Family / Caregiver Present: No General Comment Comments: RN ok'd pt for OT eval this date. Pt agreeable to session and pleasant/cooperative throughout. Pt reports 10/10 pain on L lateral/anterior head and posterior neck. Social/Functional History Social/Functional History Lives With: Alone Type of Home: House Home Layout: One level,Performs ADL's on one level Home Access: Stairs to enter with rails,Ramped entrance Entrance Stairs - Number of Steps: 3-4, can use the ramp if needed to enter Entrance Stairs - Rails: Both Bathroom Shower/Tub: Walk-in shower Bathroom Toilet: Handicap height Bathroom Equipment: Grab bars in shower,Shower chair,Toilet raiser (Uses sink for support during transfers) Bathroom Accessibility: Walker accessible Home Equipment: Walker, rolling,Cane (Has been using RW since she has been at [facility], prior to she was not using AD) Has the patient had two or more falls in the past year or any fall with injury in the past year?: No Receives Help From: Family,Friend(s) ADL Assistance: Independent (Prior to May completly IND,but at SNF reports needed assistance for self-care but was not recieving the assistance) Homemaking Assistance: Independent Homemaking Responsibilities: Yes Meal Prep Responsibility: Primary Laundry Responsibility: Primary Cleaning Responsibility: Primary Shopping Responsibility: Primary Ambulation Assistance: Independent Transfer Assistance: Independent Active Computer Forensics Examiner: Yes Mode of Transportation: Car 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 Objective Vision Exceptions: Wears glasses for reading Hearing: Within functional limits Safety Devices Type of Devices: Gait belt;Bed alarm in place;Call light within reach;Left in bed;Nurse notified Restraints Restraints Initially in Place: No Bed Mobility Training Bed Mobility Training: Yes Supine to Sit: Stand-by assistance (HOB elevated ~45 deg.; VCs for education on log roll) Sit to Supine: Stand-by assistance (HOB flat; VCs for education on log roll) Scooting: Stand-by assistance Balance Sitting: With support (SBA dynamic sitting balance; SUP static sitting balance. Pt sat unsupported (bed and toilet) ~45 min total.) Standing: With support Transfer Training Transfer Training: Yes (Use of RW; VCs for hand placement on RW) Sit to Stand: Minimum assistance Stand to Sit: Minimum assistance Toilet Transfer: Moderate assistance Gait Overall Level of Assistance: Minimum assistance (Pt completed functional mobility to/from bathroom with Min. A and RW d/t decreased balance and pt first time completing functional mobility in L surgical shoe. Pt with slight unsteadiness, however no LOB.) Assistive Device: Walker, rolling AROM: Within functional limits Strength: Within functional limits (Shoulder and elbow strength not formally assessed d/t cervical precautions. B hands 4+/5) Coordination: Within functional limits Tone: Normal Sensation: Intact (pt denies numbness/tingling) ADL Feeding: Modified independent ;Setup Grooming: Setup;Modified independent UE Bathing: Stand by assistance;Setup LE Bathing: Setup;Increased time to complete;Minimal assistance UE Dressing: Stand by assistance;Setup;Increased time to complete LE Dressing: Minimal assistance;Increased time to complete;Setup Toileting: Setup;Increased time to complete;Moderate assistance Toileting Skilled Clinical Factors: Pt completed toileting with Mod. A d/t requiring assistance with pulling underwear up. Pt completed pericare while sitting without assistance and use unilateral hand release to pull underwear down without assistance. Pt required Min. A for standing balance during pants management d/t decreased balance. Activity Tolerance Activity Tolerance: Patient tolerated treatment well Cognition Overall Cognitive Status: Exceptions Following Commands: Follows multistep commands with increased time Attention Span: Attends with cues to redirect;Difficulty dividing attention Memory: Decreased short term memory;Decreased recall of recent events Safety Judgement: Decreased awareness of need for safety;Decreased awareness of need for assistance Insights: Decreased awareness of deficits Initiation: Requires cues for some Sequencing: Requires cues for some Education Given To: Patient Education Provided Comments: Pt educated on OT role, OT POC, bed mobility training, functional transfer training, functional mobility training, ADL adaptive strategies, importance of c-collar and L surgical shoe use, and importance of continued OT services- good return. Education Method: Demonstration;Verbal Barriers to Learning: None Education Outcome: Verbalized understanding;Demonstrated understanding LUE AROM (degrees) LUE AROM : WFL (Shoulder flexion not formally assessed >90 deg. d/t cervical precautions) Left Hand AROM (degrees) Left Hand AROM: WFL RUE AROM (degrees) RUE AROM : WFL (Shoulder flexion not formally assessed > 90 deg. d/t cervical precautions) Right Hand AROM (degrees) Right Hand AROM: WFL Hand Dominance Hand Dominance: Right AM-PAC Score [facility] Inpatient Daily Activity Raw Score: 19 (07/04/21 1630) AM-[facility] Inpatient ADL T-Scale Score : 40.22 (07/04/21 1630) ADL Inpatient CMS 0-100% Score: 42.8 (07/04/21 1630) ADL Inpatient CMS G-Code Modifier : CK (07/04/21 1630) Goals Short Term Goals Time Frame for Short term goals: By discharge, pt will: Short Term Goal 1: Demo bed mobility with Mod. I and increased time using log roll and HOB flat to mimic home setup for engagement in ADLs/IADLs Short Term Goal 2: Demo functional sit<>stand transfers and functional mobility with SBA and LRD PRN for participation in daily activities Short Term Goal 3: Demo UB ADLs with Mod. IND, setup, and increased time Short Term Goal 4: Demo LB ADLs and toileting with SBA and AE PRN Short Term Goal 5: Demo 8+ min of dynamic standing and reaching during functional task with unilateral hand release and SBA for improved balance and activity tolerance during ADLs/IADLs Short Term Goal 6: Demo use of 2 non-pharmaceutical pain management techniques throughout ADL session with 0 VCs for increased participation in daily activites Therapy Time Individual Concurrent Group Co-treatment Time In 1447 Time Out 1551 Minutes 64 Timed Code Treatment Minutes: 33 Minutes PAIGE Moreira Physical Therapy Facility/Department: [address] [facility] Physical Therapy Initial Assessment Name: Meg Georges : 1965 Date of Service: 07/04/2021 Chief Complaint Patient presents with Altered Mental Status Discharge Recommendations: Further therapy recommended at discharge. PT Equipment Recommendations Equipment Needed: Yes Mobility Devices: Walker Walker: Rolling Patient Diagnosis(es): The primary encounter diagnosis was Stupor. A diagnosis of Encephalitis was also pertinent to this visit. Past Medical History: has a past medical history of Asthma, Cardiac murmur, Diabetes mellitus (HCC), Foreign body of left eye, GERD (gastroesophageal reflux disease), Hyperlipidemia, Hypertension, Neuropathy, Radiculopathy, Spinal stenosis, and Thyroid disease. Past Surgical History: has a past surgical history that includes Cholecystectomy; shoulder surgery; Achilles tendon surgery; back surgery; and Upper gastrointestinal endoscopy (N/A, 07/02/2021). Assessment Body Structures, Functions, Activity Limitations Requiring Skilled Therapeutic Intervention: Decreased functional mobility ;Decreased endurance;Decreased ROM;Decreased strength;Decreased safe awareness;Decreased balance;Decreased cognition Assessment: Pt ambulated 15ft w/ RW Alejandra, pt requiring modA to perform STS from toliet. Pt demonstrates intermittent confusion throughout session and is currently a fall risk due level of assistance required and cognition deficits. Recommending continued skilled physical therapy to address functional mobility deficits to return pt to prior level of independence. Therapy Prognosis: Good Decision Making: Medium Complexity Requires PT Follow-Up: Yes Activity Tolerance Activity Tolerance: Patient tolerated treatment well Plan Plan Plan: (5-6x/week) Current Treatment Recommendations: Strengthening,ROM,Gait training,Balance training,Stair training,Functional mobility training,Transfer training,Endurance training,Safety education & training,Equipment evaluation, education, & procurement,Therapeutic activities,Cognitive/Perceptual training Safety Devices Type of Devices: Call light within reach,Gait belt (pt retired in restroom with OT upon fiction writer's exit) Restraints Restraints Initially in Place: No Restrictions Restrictions/Precautions Restrictions/Precautions: Fall Risk,Weight Bearing Required Braces or Orthoses?: Yes Lower Extremity Weight Bearing Restrictions Left Lower Extremity Weight Bearing: Weight Bearing As Tolerated Required Braces or Orthoses Cervical: c-collar (Cervical collar on while out of bed. Ok to remove while resting in bed) Left Lower Extremity Brace: (Surgical shoe) Position Activity Restriction Other position/activity restrictions: Omega Huizar with neurosurgery, no surgical interventions planned at this time and ok for therapy via [employer] Subjective General Patient assessed for rehabilitation services?: Yes Response To Previous Treatment: Not applicable Family / Caregiver Present: No Follows Commands: Within Functional Limits Subjective Subjective: RN and pt in agreement for PT eval; pt supine in bed upon PT arrival, pt pleasant and cooperative throughout session; c-collar donned prior to mobility Social/Functional History Social/Functional History Lives With: Alone Type of Home: House Home Layout: One level,Performs ADL's on one level Home Access: Stairs to enter with rails,Ramped entrance Entrance Stairs - Number of Steps: 3-4, can use the ramp if needed to enter Entrance Stairs - Rails: Both Bathroom Shower/Tub: Walk-in shower Bathroom Toilet: Handicap height Bathroom Equipment: Grab bars in shower,Shower chair,Toilet raiser (Uses sink for support during transfers) Bathroom Accessibility: Walker accessible Home Equipment: Walker, rolling,Cane (Has been using RW since she has been at SNF, prior to she was not using AD) Has the patient had two or more falls in the past year or any fall with injury in the past year?: No Receives Help From: Family,Friend(s) ADL Assistance: Independent (Prior to May completly IND,but at SNF reports needed assistance for self-care but was not recieving the assistance) Homemaking Assistance: Independent Homemaking Responsibilities: Yes Meal Prep Responsibility: Primary Laundry Responsibility: Primary Cleaning Responsibility: Primary Shopping Responsibility: Primary Ambulation Assistance: Independent Transfer Assistance: Independent Active Computer Forensics Examiner: Yes Mode of Transportation: Car 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 Vision/Hearing Vision Exceptions: Wears glasses for reading Hearing: Within functional limits Cognition Orientation Overall Orientation Status: Within Functional Limits Cognition Overall Cognitive Status: Exceptions Following Commands: Follows multistep commands with increased time Attention Span: Attends with cues to redirect Memory: Decreased recall of recent events;Decreased short term memory Safety Judgement: Decreased awareness of need for safety;Decreased awareness of need for assistance Insights: Decreased awareness of deficits Initiation: Requires cues for some Sequencing: Requires cues for some Objective Gross Assessment Sensation: Intact Joint Mobility ROM RLE: WFL ROM LLE: WFL ROM RUE: Shoulder flexion to 90 degrees due to c-spine precautions; Elbow, wrist, hand WFL ROM LUE: Shoulder flexion to 90 degrees due to c-spine precautions; Elbow, wrist, hand WFL Strength RLE Strength RLE: WFL Strength LLE Strength LLE: WFL Strength RUE Strength RUE: Exception Comment: Not formally assessed due to c-spine precautions; surgery tech strength WFL Strength LUE Strength LUE: Exception Comment: Not formally assessed due to c-spine precautions; surgery tech strength WFL Bed mobility Supine to Sit: Contact guard assistance Sit to Supine: (Did not formally assess- pt retired in restroom upon fiction writer's exit) Bed Mobility Comments: Increased time required to complete; c-collar donned prior to initiation of bed mobility Transfers Sit to Stand: Minimal Assistance;Moderate Assistance Stand to sit: Moderate Assistance Comment: STS performed x 2 from bedside requiring Alejandra from bedside, modA from toliet; STS performed with use of RW requiring verbal and tactile cueing to correct posterior lean upon standing Ambulation Surface: level tile Device: Rolling Walker Assistance: Minimal assistance Gait Deviations: Slow Barbara;Shuffles;Decreased step length Distance: 15ft Comments: Pt demonstrating posterior lean throughout ambulation requiring verbal cueing to maintain balance and correct posterior trunk lean throughout ambulation. Surgical shoe donned prior to ambulation requiring Alejandra donning/ doffing from assistance from fiction writer. More Ambulation?: No Stairs/Curb Stairs?: No Balance Posture: Fair Sitting - Static: Good;- Sitting - Dynamic: Fair;+ Standing - Static: Fair;+ Standing - Dynamic: Fair;- Comments: standing balance assessed w/ RW; pt able to sit EOB with supervision AM-PAC Score AM-PAC Inpatient Mobility without Stair Climbing Raw Score : 13 (07/04/211610) AM-PAC Inpatient without Stair Climbing T-Scale Score : 38.96 (07/04/211610) Mobility Inpatient CMS 0-100% Score: 58.44 (07/04/211610) Mobility Inpatient without Stair CMS G-Code Modifier : CK (07/04/211610) Goals Short Term Goals Time Frame for Short term goals: 14 Short term goal 1: Pt to perform bed mobility independently Short term goal 2: Demonstrate functional transfers with supervision Short term goal 3: Ambulate 150ft w/ no AD with supervision Short term goal 4: Tolerate 30 mintues of therapy to demo increased endurance Patient Goals Patient goals : To go home Education Patient Education Education Given To: Patient Education Provided: Role of Therapy;Plan of Care Education Provided Comments: Donning and proper fit of c-collar and surgical shoe Education Method: Demonstration Barriers to Learning: Cognition Education Outcome: Verbalized understanding;Demonstrated understanding Therapy Time Individual Concurrent Group Co-treatment Time In 1450 Time Out 1529 Minutes 39 Timed Code Treatment Minutes: 23 Minutes Rebeca Osborne PT Speech Language Pathology Speech Language Pathology [facility] Cognitive Treatment Note Date: 07/04/2021 Patient s Name: Meg Georges Diagnosis: Patient Active Problem List Diagnosis Code Cellulitis of left finger L03.012 Altered mental state R41.82 Encephalitis G04.90 Encephalopathy G93.40 CIDP (chronic inflammatory demyelinating polyneuropathy) ([facility]) G61.81 Sepsis ([facility]) A41.9 Bacteremia R78.81 Hypothyroidism E03.9 Hypokalemia E87.6 Type 2 diabetes mellitus with diabetic polyneuropathy ([facility]) E11.42 Primary hypertension I10 Upper GI bleed K92.2 Non-intractable vomiting R11.10 Unintentional weight loss R63.4 Acute metabolic encephalopathy G93.41 MSSA (methicillin susceptible Staphylococcus aureus) septicemia ([facility]) A41.01 Elevated C-reactive protein (CRP) R79.82 Bandemia D72.825 Allergy to multiple antibiotics Z88.1 Pyogenic inflammation of bone ([facility]) M86.9 Acute intractable headache R51.9 Pain: 10/10 RN notified. Cognitive Treatment Treatment time: 2:15-2:30 Treatment ended early as Pt in pain and unable to continue at this time. Subjective: [x] Alert [] Cooperative [] Confused [] Agitated [] Lethargic Objective/Assessment: Recall: Word list retention: Category inclusion; 8/20 increased to 20/20 with repetitions and min verbal cues Plan: [x] Continue ST services [] Discharge from ST: Discharge recommendations: [] Further therapy recommended at discharge.The patient should be able to tolerate at least 3 hours of therapy per day over 5 days or 15 hours over 7 days. [x] Further therapy recommended at discharge. [] No therapy recommended at discharge. Treatment completed by:Chaitanya Pratt Senior Technical Program Manager ROBBIE MCKEON OPERATIONS RECRUITER, M.A. [facility]-OPERATIONS RECRUITER Patient's operative note found from care everywhere from Dr.Gloria Elena [place] MD 02/22/2010 from [facility]. Implant is Baerveldt 250 tube shunt, on the left for open angle glaucoma. This is MRI compatible. MRI department will confirm this. Speech Language Pathology [facility] Speech Language Pathology Date: 07/04/2021 Patient Name: Meg Georges Date of : 1965 AGE: 56 y.o. Patient Not Available for Speech Therapy Due to: [] Testing [] Hemodialysis [] Cancelled by RN [] Surgery [] Intubation/Sedation/Pain Medication [] Medical instability [x] Other: Pt in pain. Asked ST to return later Next scheduled treatment: 518 in PM if able, 07/05 Completed by:Chaitanya Pratt Senior Technical Program Manager ROBBIE MCKEON, OPERATIONS RECRUITER, M.A. [facility]-OPERATIONS RECRUITER ENT/OTOLARYNGOLOGY PROGRESS NOTE REASON FOR CARE: AMS, L vocal cord paralysis HISTORY OF PRESENT ILLNESS: Meg Georges is a 56 y.o. who is being seen for follow-up of L vocal cord paralysis and hypophonia. Since last ENT eval she's had an MBS and swallow eval, which was normal. She is unable to have MRI done due to an ocular metal implant, but bone scan shows increased acitivty at cranio-cervical junction. Neuro eval suggests that her underlying CIDP is an unlikely source for her VC paralysis. No changes to voice since last eval. Tolerating regular diet without concern. No other new concerns. PAST MEDICAL HISTORY: She has a past medical history of Asthma, Cardiac murmur, Diabetes mellitus (HCC), Foreign body of left eye, GERD (gastroesophageal reflux disease), Hyperlipidemia, Hypertension, Neuropathy, Radiculopathy, Spinal stenosis, and Thyroid disease. PAST SURGICAL HISTORY: She has a past surgical history that includes Cholecystectomy; shoulder surgery; Achilles tendon surgery; back surgery; and Upper gastrointestinal endoscopy (N/A, 07/02/2021). FAMILY HISTORY: No family history related to presenting problem. SOCIAL HISTORY: No social history related to presenting problem. MEDICATIONS: As reviewed in the Medication Activity. ALLERGIES: Allergies Allergen Reactions Moxifloxacin Rash Peg 3350-Electrolytes Tapentadol Other (See Comments) Mental status changes Avelox [Moxifloxacin Hydrochloride] Rash Cephalexin Rash PHYSICAL EXAM: Vitals: 07/04/21 0400 07/04/21 0800 07/04/21 1000 07/04/21 1132 BP: (!) 139/56 (!) 149/73 (!) 123/59 (!) 148/67 Pulse: 71 84 83 85 Resp: Temp: 98.2 F (36.8 C) 97.8 F (36.6 C) 98.3 F (36.8 C) TempSrc: Oral Oral SpO2: 99% 100% Weight: Height: GENERAL: well developed and well nourished and in no acute distress HEAD: normocephalic and atraumatic EYES: no eyelid swelling, no conjunctival injection or exudate, pupils equal round and reactive to light EXTERNAL EARS: normal EAR EXAM: normal TMs bilaterally and normal canals bilaterally NOSE: nares patent, normal mucosa MOUTH/THROAT: mucous membranes moist, no focal lesions, no tonsillar enlargement or exudate NECK: non-tender, full range of motion, no mass, no focal lymphadenopathy RESPIRATORY: Normal expansion. NEUROLOGICAL: cranial nerves II-XII are grossly intact. Voice weak, breathy RELEVANT LABS/STUDIES: MBS 07/03: Impression Swallowing mechanism grossly within normal limits without evidence of aspiration. Please see separate speech pathology report for full discussion of findings and recommendations. NM Bone scan 07/03: Impression Early and delayed phase activity is seen at the cranial cervical junction, including C2, clivus, occipital condyles/C1 lateral masses. Some considerations include osteomyelitis, inflammatory arthropathy, or metastatic disease. MR could be performed for further study as clinically warranted. IMPRESSION AND RECOMMENDATIONS: 56yo F with L VC paralysis with normal swallow on recent study. Plan: - Discussed observation of L VC for now given onset about 1 month ago per patient. If no improvement, could consider elective vocal cord injection. This would help with voice quality. - No urgent need for vocal cord injection given normal swallow - MRI not available given implant, but would be the last indicated study to eval the course of the L recurrent laryngeal nerve. No mass effect on prior imaging. - No further ENT inpatient work up recommended. Please contact with any further questions. -Follow-up: Your follow up appointment can be arranged with an adult ENT provider. You can contact EITHER of the practices listed here to schedule a follow up. Please contact the office at the number listed below to coordinate follow up. OPTION 1: Ear, Nose, and Throat surgeons at [facility]: Dr. Chilo Mccoy and Dr. Angel Krueger [address] [facility] [address] OPTION 2: [facility] [address] [place] [address] Appointment scheduling: Other Useful Numbers: [facility]'s ENT Nurse triage line [phone] (ENT-related questions or concerns, 8am-4pm, Friday through Friday) Gutierrez Sloan MD Pediatric Otolaryngology-Head and Neck Surgery [facility] Otolaryngology group Office ph# [phone] Also available in [employer] Images from the original note were not included. [facility] - Infectious diseases evaluation admission date 06/28/2021 reason for consultation: Sepsis with staph bacteremia Impression : Current: MSSA septicemia CRP elevation cerv spine osteomyelitis - erosions on CT and b scan bandemia Acute metabolic encephalopathy- resolving -LP neg CIDP chronic IVIG therapy - immunosuppressdUlcer on the left foot Allergy to keflex and avelox - tolerates PNC Other: Hypothyroidism Diabetes mellitus type 2 Essential hypertension Elevated troponin CIDP on IVIG infusions every 2 weeks Discussion / summary of stay / plan of care Recommendations Acute encephalopathy from sepsis - resolved - LP neg MSSA septicemia -persistent Echo neg for vegetation Will need EMIR once C spine cleared for extension BC repeat till neg Nafcillin 2 g q 4 Cough - neg CT chest for septic emboli Neck new pain -1 Mo old - CT - erosive changes B scan + OM or mets Call NS - suspect we need a myelogram to better assess the c spine for infection. Might be the source of the persistent bacteremia MRI C spine deferred due to foreign object in the eye alan esophagitis son EGD 07/02 - fluconazole 200 daily CRP on the rise despite tx Discussed with patient, RN, Dr. Robledo. Infection Control Recommendations [place] Precautions Contact Isolation Antimicrobial Stewardship Recommendations Simplification of therapy Targeted therapy History of Present Illness: Initial history: Meg Georges is a 56 y.o.-year-old female presented to the ED for altered mental status. Patient is currently admitted under neurology service. Patient presented from a 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 after an episode of confusion overnight where she was found wandering outside her 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. She had CT head done at outside facility which did not show any acute changes, telestroke was consulted for the concern of confusion, they recommended transfer to [facility] for MRI of the brain. BC SA MSSA and LP neg CRP elevated and WBc up - creat normal 06/29 mentally recovered Neck pain x 1 mo Left sole callus was infected x 2 months ago at the CT She gets her IvIg through a periph that gets pulled each time - no picc outpt Hoarse x some time wo reason Cough x 1 month Interval changes 07/04/2021 Patient Vitals for the past 8 hrs: BP Temp Temp src Pulse Resp SpO2 07/04/21 0800 (!) 149/73 97.8 F (36.6 C) Oral 84 15 100 % 07/04/21 0400 (!) 139/56 98.2 F (36.8 C) 71 27 99 % EGD 07/02 + alan esophagitis - starting fluconazole Still neck pain - MRI deferred due to metal in eye -bone scan ordered Still hoarse a little though better Labs reviewed 07/03/21 Neck pain ++ B scan + mets or infection - unclear CT c spine w erosions of the bone, infection or mets BC still + through 07/02 Did not meet criteria for the bacteremia research study 07/04 Afebrile. Flexion/Extension films of cervical spine-No findings of dynamic instability. Waiting for cervical spine clearance from NS. Cont. To c/o severe neck pain. EVANS x 4. BC remain +. Summary of relevant labs: Labs: CRP 150.7-166.3-191.8 procalcitonin 0.66, WBC-15-13.6-10.4 Micro: 06/28 HSV PCR-Negative. 06/29 -07/01 Blood Culture MSSA 07/03 BC-+ GPC in clusters 06/29 LP -WBC 2 - RBC 1 - cx Negative to date. Imagin/17 XR Cervical Spine-Flexion/Extension-No evidence of instability. I have personally reviewed the past medical history, past surgical history, medications, social history, and family history, and I haveupdated the database accordingly. Allergies: Moxifloxacin, Peg 3350-electrolytes, Tapentadol, Avelox [moxifloxacin hydrochloride], and Cephalexin Review of Systems: Review of Systems Constitutional: Positive for fatigue and unexpected weight change. Negative for appetite change, chills and fever. HENT: Negative for ear pain, rhinorrhea and sore throat. Hoarse Eyes: Negative for pain, discharge and redness. Respiratory: Negative for cough, choking, shortness of breath and wheezing. Cardiovascular: Negative for chest pain and leg swelling. Gastrointestinal: Positive for nausea. Negative for abdominal pain, blood in stool, constipation, diarrhea and vomiting. Endocrine: Negative for cold intolerance, heat intolerance and polydipsia. Genitourinary: Negative for decreased urine volume, difficulty urinating and enuresis. Musculoskeletal: Positive for neck pain. Negative for back pain and joint swelling. Skin: Positive for wound. Negative for color change. Rash: left sole under MTS head 1. Allergic/Immunologic: Positive for immunocompromised state. Negative for food allergies. Neurological: Positive for headaches. Negative for syncope and light-headedness. Neuropathy to bilateral hands and feet. Hematological: Negative for adenopathy. Psychiatric/Behavioral: Negative for agitation and confusion. The patient is not nervous/anxious. Physical Examination : Physical Exam Constitutional: General: She is in acute distress. Appearance: She is not ill-appearing or diaphoretic. HENT: Head: Normocephalic and atraumatic. Nose: Nose normal. No rhinorrhea. Mouth/Throat: Mouth: Mucous membranes are moist. Pharynx: Oropharynx is clear. Comments: Voice hoarse. Eyes: General: No scleral icterus. Extraocular Movements: Extraocular movements intact. Conjunctiva/sclera: Conjunctivae normal. Pupils: Pupils are equal, round, and reactive to light. Cardiovascular: Rate and Rhythm: Normal rate and regular rhythm. Heart sounds: Normal heart sounds. No murmur heard. Pulmonary: Effort: Pulmonary effort is normal. No respiratory distress. Breath sounds: Normal breath sounds. No stridor. No wheezing. Abdominal: General: Bowel sounds are normal. There is no distension. Palpations: Abdomen is soft. There is no mass. Tenderness: There is no abdominal tenderness. There is no guarding. Hernia: No hernia is present. Genitourinary: Comments: No meade. Musculoskeletal: General: No swelling, tenderness or signs of injury. Cervical back: Rigidity present. No tenderness. Right lower leg: No edema. Left lower leg: No edema. Skin: Capillary Refill: Capillary refill takes less than 2 seconds. Coloration: Skin is not jaundiced. Findings: Erythema present. No bruising. Neurological: Mental Status: She is alert and oriented to person, place, and time. Mental status is at baseline. Psychiatric: Mood and Affect: Mood normal. Behavior: Behavior normal. Thought Content: Thought content normal. Past Medical History: Past Medical History: Diagnosis Date Asthma Cardiac murmur Diabetes mellitus (HCC) Foreign body of left eye Pt had hx of MRI clearance and has a foreign body in left eye. Per neuro radiologist Dr. veliz, no MRI until that foreign object in left eye is figured out. GERD (gastroesophageal reflux disease) Hyperlipidemia Hypertension Neuropathy Radiculopathy Spinal stenosis Thyroid disease Past Surgical History: Past Surgical History: Procedure Laterality Date ACHILLES TENDON SURGERY left BACK SURGERY L 4 and 5 1995, 1996 CHOLECYSTECTOMY SHOULDER SURGERY right UPPER GASTROINTESTINAL ENDOSCOPY N/A 07/02/2021 EGD ESOPHAGOGASTRODUODENOSCOPY performed by Hari Wagner MD at [facility] Endoscopy Medications: lidocaine 1 patch TransDERmal Daily potassium bicarb-citric acid 40 mEq Oral Daily valproic acid 250 mg Oral BID fluconazole 200 mg Oral Daily lisinopril 10 mg Oral Daily levothyroxine 100 mcg Oral Daily [Held by provider] insulin glargine 16 Units SubCUTAneous Daily aspirin 81 mg Oral Daily nafcillin 2,000 mg IntraVENous Q4H carvedilol 25 mg Oral BID sodium chloride flush 5-40 mL IntraVENous 2 times per day enoxaparin 40 mg SubCUTAneous Daily latanoprost 1 drop Both Eyes Nightly insulin lispro 0-12 Units SubCUTAneous TID WC insulin lispro 0-6 Units SubCUTAneous Nightly Social History: Social History Socioeconomic History Marital status: Spouse name: Not on file Number of children: Not on file Years of education: Not on file Highest education level: Not on file Occupational History Not on file Tobacco Use Smoking status: Former Smoker Years: 20.00 Types: Cigarettes Quit date: 10/06/1995 Years since quittin.7 Smokeless tobacco: Never Used Substance and Sexual Activity Alcohol use: No Drug use: No Sexual activity: Not on file Other Topics Concern Not on file Social History Narrative Not on file Social Determinants of Health Financial Resource Strain: Difficulty of Paying Living Expenses: Not on file Food Insecurity: Worried About Running Out of Food in the Last Year: Not on file Ran Out of Food in the Last Year: Not on file Transportation Needs: Lack of Transportation (Medical): Not on file Lack of Transportation (Non-Medical): Not on file Physical Activity: Days of Exercise per Week: Not on file Minutes of Exercise per Session: Not on file Stress: Feeling of Stress : Not on file Social Connections: Frequency of Communication with Friends and Family: Not on file Frequency of Social Gatherings with Friends and Family: Not on file Attends Mosque Services: Not on file Active Member of Clubs or Organizations: Not on file Attends Club or Organization Meetings: Not on file Marital Status: Not on file Intimate Partner Violence: Fear of Current or Ex-Partner: Not on file Emotionally Abused: Not on file Physically Abused: Not on file Sexually Abused: Not on file Housing Stability: Unable to Pay for Housing in the Last Year: Not on file Number of Places Lived in the Last Year: Not on file Unstable Housing in the Last Year: Not on file Family History: Family History Problem Relation Age of Onset Diabetes Mother Cancer Father Medical Decision Making: I have independently reviewed/ordered the following labs: CBC with Differential: Recent Labs 07/03/2143807/03/21 0439 07/03/21 1637 07/04/21 0316 WBC 13.6* -- -- 10.4 HGB 8.4* < > 7.8* 7.4* HCT 26.1* < > 24.2* 22.8* PLT 261 -- -- 231 LYMPHOPCT 18* -- -- 22* MONOPCT 5 -- -- 5 < > = values in this interval not displayed. BMP: Recent Labs 07/03/21438 07/03/21 0439 07/03/21 1637 07/04/21 0316 NA 134* -- -- 138 K 2.9* < > 3.4* 3.5* CL 98 -- -- 102 CO2 25 -- -- 26 BUN 7 -- -- 8 CREATININE 0.81 -- -- 0.72 MG 2.0 -- -- 1.8 < > = values in this interval not displayed. Hepatic Function Panel: No results for input(s): PROT, LABALBU, BILIDIR, IBILI, BILITOT, ALKPHOS, ALT, AST in the last 72 hours. No results for input(s): RPR in the last 72 hours. No results for input(s): HIV in the last 72 hours. No results for input(s): BC in the last 72 hours. Lab Results Component Value Date CREATININE 0.72 07/04/2021 GLUCOSE 122 07/04/2021 GLUCOSE 229 06/04/2011 Detailed results: Thank you for allowing us to participate in the care of this patient.Please call with questions. This note is created with the assistance of a speech recognition program. While intending to generate adocument that actually reflects the content of the visit, the document can still have some errors including those of syntax and sound a like substitutions which may escape proof reading. It such instances, actual meaningcan be extrapolated by contextual diversion. REBEKA Orellana CNP Office: [facility] / office [phone] \ Images from the original note were not included. NEUROLOGY INPATIENT PROGRESS NOTE 07/04/2021 Current Exam: Chart reviewed. Discussed with RN. Patient complaining of increased neck pain today. Neurosurgery notes reviewed. She continues with a hoarse voice; no other acute complaints. She is not having any difficulty with eating her food/swallowing. No respiratory distress. PT planning to work with her today. Brief History: Meg Georges is a 56 y.o. 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 She was found wandering outside of her 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. She was admitted to the medicine team and was found to have sepsis as well as a GI bleed. Neurology was consulted due to altered mentation and headache. CT head was done and was unremarkable. CTA head neck unremarkable. EEG was normal. Spinal tap was done in the ED with CSF studies negative for meningitis or SOAP MAKER infection. For her headache she was placed on Depacon with relief and also received IV mag and Fioricet. Muscle relaxer was added due to tenderness of to palpation in the left paraspinal cervical musculature. Neurology later asked to evaluate for CIDP being the cause behind patient's vocal cord paralysis. Patient reports she has had her hoarse voice for the past one month, since she entered her nursing facility. She denies any other associated symptoms she typically feels when she is having a CIDP flare. She had been getting IVIG every 2 weeks with her last dose being at the end of April. She denies any respiratory distress, trouble swallowing, or increased weakness to her arms and legs. No current facility-administered medications on file prior to encounter. Current Outpatient Medications on File Prior to Encounter Medication Sig Dispense Refill insulin glargine (LANTUS) 100 UNIT/ML injection vial Inject 16 Units into the skin nightly brimonidine (ALPHAGAN P) 0.15 % ophthalmic solution Apply 1 drop to eye 2 times daily Left eye carvedilol (COREG) 25 MG tablet Take 25 mg by mouth 2 times daily (with meals) HYDROcodone-acetaminophen (NORCO) 5-325 MG per tablet Take 1 tablet by mouth every 4 hours as needed for Pain. insulin lispro (HUMALOG KWIKPEN) 100 UNIT/ML pen Inject 30 Units into the skin 3 times daily (before meals) Sliding scale coverage- Use less than 30 units with sliding scale aspirin 325 MG tablet Take 325 mg by mouth daily latanoprost (XALATAN) 0.005 % ophthalmic solution Place 1 drop into both eyes nightly lisinopril (PRINIVIL;ZESTRIL) 10 MG tablet Take 10 mg by mouth daily tiZANidine (ZANAFLEX) 4 MG tablet Take 4 mg by mouth as needed dorzolamide-timolol (COSOPT) 22.3-6.8 MG/ML ophthalmic solution Place 1 drop into the right eye 2 times daily Multiple Vitamins-Minerals (MULTIVITAMIN ADULT PO) Take 1 tablet by mouth daily levothyroxine (SYNTHROID) 112 MCG tablet Take 112 mcg by mouth Daily Allergies: Meg Georges is allergic to moxifloxacin, peg 3350-electrolytes, tapentadol, avelox [moxifloxacin hydrochloride], and cephalexin. Past Medical History: Diagnosis Date Asthma Cardiac murmur Diabetes mellitus (HCC) Foreign body of left eye Pt had hx of MRI clearance and has a foreign body in left eye. Per neuro radiologist Dr. veliz, no MRI until that foreign object in left eye is figured out. GERD (gastroesophageal reflux disease) Hyperlipidemia Hypertension Neuropathy Radiculopathy Spinal stenosis Thyroid disease Past Surgical History: Procedure Laterality Date ACHILLES TENDON SURGERY left BACK SURGERY L 4 and 5 1995, 1996 CHOLECYSTECTOMY SHOULDER SURGERY right UPPER GASTROINTESTINAL ENDOSCOPY N/A 07/02/2021 EGD ESOPHAGOGASTRODUODENOSCOPY performed by Hari Wagner MD at [facility] Endoscopy Social History: Meg Georges reports that she quit smoking about 25 years ago. Her smoking use included cigarettes. She quit after 20.00 years of use. She has never used smokeless tobacco. She reports that she does not drink alcohol and does not use drugs. Family History Problem Relation Age of Onset Diabetes Mother Cancer Father Objective: BP (!) 149/73 Pulse 84 Temp 98.2 F (36.8 C) Resp 15 Ht 5' 5 (1.651 m) Wt 145 lb (65.8 kg) LMP 12/02/2011 SpO2 99% BMI 24.13 kg/m Blood pressure range: Systolic (24hrs), Av , Min:117 , Max:156 ; Diastolic (24hrs), Av, Min:55, Max:73 Review of Systems: Constitutional Negative for fever and chills HEENT Negative for ear discharge, ear pain, nosebleed. + headache with cervical neck pain, + hoarse voice Eyes Negative for photophobia, pain and discharge Respiratory Negative for hemoptysis and sputum Cardiovascular Negative for orthopnea, claudication and PND Gastrointestinal Negative for abdominal pain, diarrhea, blood in stool Musculoskeletal Negative for joint pain, negative for myalgia Skin Negative for rash or itching Endo/heme/allergies Negative for polydipsia, environmental allergy Psychiatric/behavioral Negative for suicidal ideation. Patient is not anxious NEUROLOGIC EXAMINATION GENERAL Appears comfortable and in no distress HEENT NC/ AT NECK Supple MENTAL STATUS: Alert, oriented, intact memory, no confusion, quiet/hoarse speech, normal language, no hallucination or delusion CRANIAL NERVES: II - Visual bobo intact to confrontation III,IV, - EOMs full, no afferent defect, no JOHANNE, no ptosis V - Normal facial sensation VII - Normal facial symmetry VIII - Intact hearing IX,X - Symmetrical palate XI - Symmetrical shoulder shrug XII - Midline tongue, no atrophy MOTOR FUNCTION: 5/5 to BUE, 4/5 to BLE with normal bulk, normal tone and no involuntary movements, no tremor SENSORY FUNCTION: Decreased sensation BLE (chronic) CEREBELLAR FUNCTION: Intact fine motor control over upper limbs REFLEX FUNCTION: Symmetric, no perverted reflex, no Babinski sign STATION and GAIT Not tested Data: Lab Results: CBC: Recent Labs 07/02/219 07/02/21 1508 07/03/21 0439 07/03/21 1637 07/04/21 0316 WBC 16.7* -- 13.6* -- 10.4 HGB 9.0* < > 8.4* 7.8* 7.4* PLT 299 -- 261 -- 231 < > = values in this interval not displayed. BMP: Recent Labs 07/02/21 0419 07/02/21 1015 07/03/21 0439 07/03/21 1637 07/04/21 0316 NA 134* -- 134* -- 138 K 2.9* < > 2.9* 3.4* 3.5* CL 98 -- 98 -- 102 CO2 25 -- 25 -- 26 BUN 9 -- 7 -- 8 CREATININE 0.66 -- 0.81 -- 0.72 GLUCOSE 67* -- 108* -- 122* < > = values in this interval not displayed. Lab Results Component Value Date CHOL 155 06/28/2021 LDLCHOLESTEROL 63 06/28/2021 HDL 71 06/28/2021 TRIG 105 06/28/2021 ALT 19 06/28/2021 AST 19 06/28/2021 TSH 0.15 (L) 06/28/2021 INR 1.2 06/28/2021 LABA1C 9.4 (H) 06/28/2021 LABMICR 7 06/25/2013 [id number] 06/28/2016 Diagnostic data reviewed: CT HEAD (06/28/21) - 1. Poorly diagnostic examination due to patient motion. 2. No gross evidence of hemorrhage or mass effect. CTA HEAD AND NECK (06/28/21) - Unremarkable CTA of the head and neck. CT CERVICAL SPINE (06/29/21) - Erosive changes identified at the craniocervical junction other may related to nonspecific inflammatory arthropathy/rheumatoid arthritis, given the degree of erosions involving the clivus and both lateral mass identified both condyles, infection/underlying possibility of underlying osteomyelitis should be considered in the appropriate clinical setting. MRI could be beneficial for more definitive characterization. EEG (06/29/21) - Normal awake and sleep EEG. ECHO (07/03/21) - Normal LV size and wall thickness. No obvious wall motion abnormality seen. Normal LV systolic function with LVEF >55%. Normal RV size and function. LA and RA appears normal in size.Difficult to R/O small PFO No obvious significant structural valvular abnormality noted. No significant valvular stenosis or regurgitation noted. Normal aortic root dimension. No significant pericardial effusion noted. No obvious evidence of endocarditis noted. IVC normal diameter and inspiratory variation indicating normal RA filling Pressure. Impression: -Acute metabolic encephalopathy in the setting of MSSA bacteremia, sepsis; improved -Acute intractable headache with cervical neck pain -GI bleed -History of CIDP -Vocal cord paralysis Plan: -In regards to vocal cord paralysis; difficult to attribute this to patient's CIDP as she has no other associated symptoms, no other typical symptoms of her past CIDP flares, no worsening or progression of symptoms, and vocal cord paralysis alone is not typical of CIDP. Although patient is in need of her maintenance dosing of IVIG, given that she is clinically stable at this time, would recommend to hold off on IVIG until infection/sepsis is cleared before resuming her maintenance IVIG regimen. Will continue to follow clinically and if symptoms worsen, can consider initiating IVIG sooner -CSF studies are negative for SOAP MAKER infection -Continue Depakene 250mg BID for headache -GI is following, patient is s/p EGD with findings suggestive of Alan esophagitis -ID is following; patient remains on antibiotics -Neurosurgery is following; possible myelogram -PT/OT -We will follow Please note that this note was generated using a voice recognition dictation software. Although every effort was made to ensure the accuracy of this automated dampener, some errors in dampener may have occurred. Images from the original note were not included. [facility] Internal Medicine Teaching Residency Program Inpatient Daily Progress Note __ Patient: Meg Georges Date of : 1965 Acct: [id number] Room: [address] [place] [address] Admit date: 06/28/2021 Today's date: 07/04/21 Number of days in the hospital: 6 SUBJECTIVE Admitting Diagnosis: Sepsis (HCC) CC: altered mentation Pt examined at bedside. Chart & results reviewed. Hemodynamically stable. Afebrile. Passed MBSS Concern for Osteomyelitis C1-C2 neurosurgery consulted. No procedure planned for now Completed echo; may need EMIR ff clearance for neck extension by NS No more diarrhea. K+ 3.5. replaced EGD revealed alan esophagitis. CRP 191 trending up, wbc 10, BC positive 07/03. On nafcillin Hb 7.4 ROS: Constitutional: negative for chills, fevers, sweats Respiratory: negative for cough, dyspnea on exertion, hemoptysis, shortness of breath, wheezing Cardiovascular: negative for chest pain, chest pressure/discomfort, lower extremity edema, palpitations Gastrointestinal: negative for abdominal pain, constipation, diarrhea, nausea, vomiting Neurological: negative for dizziness, headache BRIEF HISTORY The patient is a pleasant 56 y.o. female presents with a chief complaint of altered mentation. 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 Presented to ED from 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, found confused outside. Imaging negative. She complains of headache 11/26, not sure how she got to ED. Denies fever, vomiting, chest kristan, cough, SOB, abdominal pain. States last BM yesterday soft. Patient somnolent but arousable, follows command, hypertensive BP as high as 202/105, HR 110, on room air. Significant labs include glycemia 254, wbc 22. Lumbar tap done. Not concerning for acute meningitis. OBJECTIVE Vital Signs: BP (!) 117/58 Pulse 73 Temp 98 F (36.7 C) Resp 23 Ht 5' 5 (1.651 m) Wt 145 lb (65.8 kg) LMP 12/02/2011 SpO2 98% BMI 24.13 kg/m Temp (24hrs), Av F (36.7 C), Min:97.7 F (36.5 C), Max:98.2 F (36.8 C) No intake/output data recorded. Physical Exam: Constitutional: This is a well developed, well nourished, 18.5-24.9 - Normal 56 y.o. year old female who is alert, oriented, cooperative. Head:normocephalic and atraumatic. EENT: PERRLA. No conjunctival injections. Septum was midline, mucosa was without erythema, exudates or cobblestoning. No thrush was noted. Neck: Supple without thyromegaly. No palpable lymphadenopathy. Generalized tenderness anterior neck. No elevated JVP. Trachea was midline. Respiratory: Chest was symmetrical without dullness to percussion. Breath sounds bilaterally were clear to auscultation. There were no wheezes, rhonchi or rales. There is no intercostal retraction or use of accessory muscles. No egophony noted. Cardiovascular: Regular without murmur, clicks, gallops or rubs. Abdomen: Slightly rounded and soft without organomegaly. No rebound, rigidity or guarding was appreciated. Lymphatic: No lymphadenopathy. Musculoskeletal: Normal curvature of the spine. No gross muscle weakness. Extremities: No lower extremity edema, ulcerations, tenderness, varicosities or erythema. Muscle size, tone and strength are normal. No involuntary movements are noted. Skin: Ulcer present on left foot. Loss of sensation Neurological/Psychiatric: Patient alert and oriented x 3, memory intact, concentration preserved. Moves all extremities.decreased sensation in socks glove pattern Medications: Scheduled Medications: lidocaine 1 patch TransDERmal Daily potassium bicarb-citric acid 40 mEq Oral Daily valproic acid 250 mg Oral BID fluconazole 200 mg Oral Daily lisinopril 10 mg Oral Daily levothyroxine 100 mcg Oral Daily [Held by provider] insulin glargine 16 Units SubCUTAneous Daily aspirin 81 mg Oral Daily nafcillin 2,000 mg IntraVENous Q4H carvedilol 25 mg Oral BID WC sodium chloride flush 5-40 mL IntraVENous 2 times per day enoxaparin 40 mg SubCUTAneous Daily latanoprost 1 drop Both Eyes Nightly insulin lispro 0-12 Units SubCUTAneous TID WC insulin lispro 0-6 Units SubCUTAneous Nightly Continuous Infusions: dextrose PRN Medicationsloperamide, 2 mg, 4x Daily PRN sodium chloride flush, 10 mL, PRN tiZANidine, 2 mg, Q8H PRN bwrnzaeqwc-ispeedemeuyso-tdpthxjx, 1 tablet, Q4H PRN hydrALAZINE, 10 mg, Q4H PRN sodium chloride flush, 5-40 mL, PRN ondansetron, 4 mg, Q8H PRN Or ondansetron, 4 mg, Q6H PRN bisacodyl, 5 mg, Daily PRN sodium chloride flush, 5-40 mL, PRN labetalol, 10 mg, Q4H PRN glucose, 4 tablet, PRN dextrose bolus, 125 mL, PRN Or dextrose bolus, 250 mL, PRN glucagon (rDNA), 1 mg, PRN dextrose, 100 mL/hr, PRN Diagnostic Labs: CBC: Recent Labs 07/02/21 0419 07/02/21 1508 07/03/21 0439 07/03/21 1637 07/04/21 0316 WBC 16.7* -- 13.6* -- 10.4 RBC 3.47* -- 3.22* -- 2.79* HGB 9.0* < > 8.4* 7.8* 7.4* HCT 28.2* < > 26.1* 24.2* 22.8* MCV 81.3* -- 81.1* -- 81.7* RDW 16.3* -- 16.5* -- 16.9* PLT 299 -- 261 -- 231 < > = values in this interval not displayed. BMP: Recent Labs 07/02/21 0419 07/02/21 1015 07/03/21 0439 07/03/21 1637 07/04/21 0316 NA 134* -- 134* -- 138 K 2.9* < > 2.9* 3.4* 3.5* CL 98 -- 98 -- 102 CO2 25 -- 25 -- 26 BUN 9 -- 7 -- 8 CREATININE 0.66 -- 0.81 -- 0.72 < > = values in this interval not displayed. BNP: No results for input(s): BNP in the last 72 hours. PT/INR: No results for input(s): PROTIME, INR in the last 72 hours. APTT: No results for input(s): APTT in the last 72 hours. CARDIAC ENZYMES: No results for input(s): CKMB, CKMBINDEX, TROPONINI in the last 72 hours. Invalid input(s): CKTOTAL;3 FASTING LIPID PANEL: Lab Results Component Value Date CHOL 155 06/28/2021 HDL 71 06/28/2021 TRIG 105 06/28/2021 LIVER PROFILE: No results for input(s): AST, ALT, ALB, BILIDIR, BILITOT, ALKPHOS in the last 72 hours. MICROBIOLOGY: Lab Results Component Value Date/Time CULTURE POSITIVE Blood Culture (A) 07/03/2021 04:39 AM CULTURE 07/03/2021 04:39 AM DIRECT GRAM STAIN FROM BOTTLE: GRAM POSITIVE COCCI IN CLUSTERS CULTURE 07/03/2021 04:39 AM (NOTE) Direct Gram Stain from bottle result called to and read back by: VIRGIE Parker AT 0055 ON 07/04/21 Imaging: CT Head WO Contrast Result Date: 06/28/2021 1. Poorly diagnostic examination due to patient motion. 2. No gross evidence of hemorrhage or mass effect. A telephone call regarding the findings in examination and limitations the study was made to and acknowledged by Dr. Boothe in the emergency department at 4:55 AM on 06/28/2021. CT ABDOMEN PELVIS W IV CONTRAST Additional Contrast? None Result Date: 06/28/2021 1. No evidence of bowel obstruction. 2. Normal appendix. 3. Status post cholecystectomy. XR CHEST PORTABLE Result Date: 06/28/2021 No acute abnormality. CTA HEAD NECK W CONTRAST Result Date: 06/28/2021 Unremarkable CTA of the head and neck. ASSESSMENT & PLAN Sepsis with MSSA bacteremia; source unknown: -continu Nafcillin 2 g q 4 h. Stop date 07-29-21 per ID -Repeat blood cultures positive -echo normal. EF > 55%, no valvular abnormalities - Erosive changes at craniocervical junction which may be related to arthritis or osteomyelitis by CT cervical spine 06-29-21 -left foot ulceration; Podiatry consulted for concern for osteomyelitis and possible source of MSSA bacteremia -XR left foot negative for osteomyelitis - CT chest showed right upper lobe pulmonary nodule -resp viral panel negative - Bone scan concerning for c1-c2 osteomyelitis Concern osteomyelitis C1-C2 Neurosurgery consulted. Pending recommendations Alan esophagitis: - on EGD 07/02/2021. On Diflucan 200 mg daily for 14 days. GI signed off Hypothyroidism: -TSH low. - levothyroxine dose decreased from 112 mcg to 100 mcg daily Diabetes Mellitus type II: -medium dose ISS -hypoglycemia protocol - glucose checks q4 Essential hypertension: -On Coreg and lisinopril. Currently controlled Elevated troponins: Downtrending likely type II AL -echo result pending Hypokalemia: K+ 2.9 today. Replace PO and IV and monitor Left Vocal cord paralysis: Ongoing x 1 month. ENT on board. Plan for injection laryngoplasty for voice/swallowing improvement at some point. Needs formal speech therapy/swallow study assessment as she is likely aspirating liquids. Unable to get MRI due to foreign body in left eye. Rufus Argueta MD Internal Medicine Resident, PGY- [facility]; [place], [place] 07/04/2021, 7:05 AM Associated attestation - Johnny Robledo MD - 07/04/2021 3:14 PM EDT Attending Supervising Physician s Attestation Statement I have seen and examined Meg Georges and the coffey elements of all parts of the encounter have been performed by me. I agree with the assessment, plan and orders as documented by the Advanced Practice Provider. I discussed the findings and plans with the resident physician and agree as documented in their note . In addition to the pertinent positives and negatives as stated within HPI and the review of systems as documented in the notes, all other systems were reviewed when able to and are reported negative. Additional Comments: continue IV abx per ID. NS evaluation in progress. Repeat cultures remain positive Images from the original note were not included. Physical Therapy Physical Therapy Cancel Note DATE: 07/03/2021 NAME: Meg Georges : 1965 Patient not seen this date for Physical Therapy due to: Other: PT to await NS recommendations prior to completion of evaluation. PT will check back 07/04/21. 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 Date of Eval: 07/03/2021 Evaluating Therapist: HOLGER Larson RECENT RESULTS CT OF HEAD/MRI: Impression 1. Poorly diagnostic examination due to patient motion. 2. No gross evidence of hemorrhage or mass effect. A telephone call regarding the findings in examination and limitations the study was made to and acknowledged by Dr. Boothe in the emergency department at 4:55 AM on 06/28/2021. Primary Complaint: The patient is a 56 y.o. female with significant past medical history of length dependent peripheral axonal sensorimotor neuropathy with diagnosis of CIDP, poorly controlled insulin-dependent diabetes with diabetic retinopathy, macular edema, hypothyroidism, hyperlipidemia, sleep apnea, who was transferred from [facility], after she presented from her 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 for an episode of confusion overnight where she was found wandering outside her 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. She does not recall the episode very well, complaining of head pain, generalized weakness, weak voice. She had CT head done at outside facility which did not show any acute changes, telestroke was consulted for the concern for confusion, they recommended transfer to [place] for MRI of the brain. Patient has a complicated history over the last few years, has been seen by neurology at [facility] for worsening neuropathy symptoms, eventually diagnosed with CIDP and she is on IVIG infusions every 2 weeks although she has not had them in the last month or so since being in the 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. There is also concern for MGUS, with elevated IgG kappa. She has been complaining of headache and neck pain since February, eventually went to the chiropractor who did some neck manipulation without much relief, then subsequently went to the massage therapist, which also did not help, she was subsequently admitted in outside hospital in May for neck pain, during that admission the leading differentials were either neck muscle spasms or myalgia, versus cervicogenic headaches, MRI brain and cervical spine did not show any abnormality, neurology evaluated the patient at that time, did not think there was an acute meningitis or encephalitis ongoing. Patient also had episode of decreased responsiveness, per chart review a lot of underlying behavioral issues and emotional support was offered, details of each encounter as below. 2019 history of Diabetes mellitus; Hyperlipidemia; Hypothyroidism; Neuropathy; and Sleep apnea who presents to the office for numbness and tingling in both upper and lower extremities. Patient reported that the symptoms started in 2000. It is a constant numbness, tingling, and burning sensation in both feet, symmetric in onset, but severe and unremitting to the point of having to leave work. Starting in 2013, she began experiencing experiencing similar symptoms in both hands. She also reports weakness in her feet, noting frequent tripping/stumbling while ambulating, with associated unsteadiness of gait. She reports some lower back and neck pain. She began experiencing weakness in her hands more recently, with symptoms equal bilaterally. She has been diabetic (type 2) in late , with undercontrolled glucose. Her glucose usually runs in 100s-200s. She has a history of two L4-5 lumbar spine surgeries in for leg pain, without improvement in pain following the first surgery (only the second). She also has a left foot ulcer and had a second toe amputation. She is currently taking acetaminophen-codeine 1 tab BID prn for her neuropathic pain. 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 She has undergone EMG/NCS earlier this year, which showed advanced length dependent sensorimotor axonal peripheral neuropathy. April 2021 burn to the right small finger which occurred 2 days ago while pulling hot food out of a oven. She states that she has significant neuropathy and could not feel it. She states that today she awoke and noted that the majority of the finger was lopez red color without significant edema. On arrival here when she remove the Band-Aid there was a significant amount of purulent material which was oozing from 2 separate areas both on the volar pad of the finger. I did collect a aerobic culture swab and will send this for evaluation. The second problem is a splint on the left thumb, volar pad which she states occurred 2 to 3 weeks ago and has never healed properly. There is significant edema without purulent material or redness. Patient denies any fevers, chills or general sense of illness. Pain: Pain Assessment Pain Assessment: None - Denies Pain Pain Level: 7 Patient's Stated Pain Goal: 0 - No pain Pain Location: Head,Neck Pain Orientation: Left Pain Descriptors: Aching,Throbbing Functional Pain Assessment: Prevents or interferes some active activities and ADLs Pain Type: Acute pain Pain Frequency: Continuous Pain Onset: On-going Non-Pharmaceutical Pain Intervention(s): Environmental changes Response to Pain Intervention: Pain improved but above pain goal Side Effects: No reported side effects Pain Assessment in Advanced Dementia (PAINAD) Non-Pharmaceutical Pain Intervention(s): Environmental changes Response to Pain Intervention: Pain improved but above pain goal Side Effects: No reported side effects Faces, Legs, Activity, Cry, and Consolability (FLACC) Non-Pharmaceutical Pain Intervention(s): Environmental changes Response to Pain Intervention: Pain improved but above pain goal Side Effects: No reported side effects Assessment: Pt presents with moderate cognitive deficits characterized by difficulties with recall, verbal reasoning and thought flexibility Pt. Presents with no dysarthria, no O/M deficits at this time. Pt reports she has a history of [address] to follow up and provide treatment to address noted deficits. Education provided. Further therapy recommended at discharge. Recommendations: Requires OPERATIONS RECRUITER Intervention: Yes D/C Recommendations: Ongoing speech therapy is recommended during this hospitalization;Ongoing speech therapy is recommended at next level of care Plan: Goals: Short-term Goals Goal 1: Recall 3-5 units with and without distraction with 90% accruacy Goal 2: Provide comp. recall strategies with 90% accuracy Goal 3: Complete thought flexibility tasks with 90% accuracy Goal 4: Complete verbal reasoning tasks with 90% accruacy Patient/family involved in developing goals and treatment plan: yes Subjective: Previous level of function and limitations: independent General Chart Reviewed: Yes Vision Vision: Within Functional Limits Hearing Hearing: Within functional limits Cognition: Orientation Overall Orientation Status: Within Functional Limits Attention Attention: Within Functional Limits Memory Memory: Exceptions to WFL (immeidate recall 3/3,2/5) Short-term Memory: Severe (0/3,0/3) Problem Solving Problem Solving: Exceptions to WFL Verbal Reasoning Skills: Moderate (word deductions 2/4, Word associations 2/4) Abstract Reasoning Abstract Reasoning: Exceptions to WFL Convergent Thinking: WFL Divergent Thinking: WFL Safety/Judgment Safety/Judgment: Exceptions to WFL Insight: Mild (2/3) Flexibility of Thought: Mild (2/3) Prognosis: Speech Therapy Prognosis Prognosis: Good Individuals consulted Consulted and agree with results and recommendations: Patient Education: Patient Education: yes Patient Education Response: Verbalizes understanding Therapy Time: Individual Concurrent Group Co-treatment Time In 1050 Time Out 1100 Minutes 10 HOLGER Larson 07/03/2021 1:33 PM Images from the original note were not included. [facility] - Infectious diseases evaluation admission date 06/28/2021 reason for consultation: Sepsis with staph bacteremia Impression : Current: MSSA septicemia CRP elevation cerv spine osteomyelitis - erosions on CT and b scan bandemia Acute metabolic encephalopathy- resolving -LP neg CIDP chronic IVIG therapy - immunosuppressdUlcer on the left foot Allergy to keflex and avelox - tolerates PNC Other: Hypothyroidism Diabetes mellitus type 2 Essential hypertension Elevated troponin CIDP on IVIG infusions every 2 weeks Discussion / summary of stay / plan of care Recommendations Acute encephalopathy from sepsis - resolved - LP neg MSSA septicemia -persistent Echo neg for vegetation Will need EMIR once C spine cleared for extension BC repeat till neg Nafcillin 2 g q 4 Cough - neg CT chest for septic emboli Neck new pain -1 Mo old - CT - erosive changes B scan + OM or mets Call NS - suspect we need a myelogram to better assess the c spine for infection. Might be the source of the persistent bacteremia MRI C spine deferred due to foreign object in the eye alan esophagitis son EGD 07/02 - fluconazole 200 daily CRP on the rise [place][pite tx Infection Control Recommendations [place] Precautions Contact Isolation Antimicrobial Stewardship Recommendations Simplification of therapy Targeted therapy History of Present Illness: Initial history: Meg Georges is a 56 y.o.-year-old female presented to the ED for altered mental status. Patient is currently admitted under neurology service. Patient presented from a 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 after an episode of confusion overnight where she was found wandering outside her 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. She had CT head done at outside facility which did not show any acute changes, telestroke was consulted for the concern of confusion, they recommended transfer to [facility] for MRI of the brain. BC SA MSSA and LP neg CRP elevated and WBc up - creat normal 06/29 mentally recovered Neck pain x 1 mo Left sole callus was infected x 2 months ago at the CT She gets her IvIg through a periph that gets pulled each time - no picc outpt Hoarse x some time wo reason Cough x 1 month Interval changes 07/03/2021 Patient Vitals for the past 8 hrs: BP Temp Temp src Pulse Resp SpO2 07/03/21 1135 118/66 98.2 F (36.8 C) Oral 93 16 97 % 07/03/21 0807 (!) 125/58 97.7 F (36.5 C) Oral 79 15 100 % EGD 07/02 + alan esophagitis - starting fluconazole Still neck pain - MRI deferred due to metal in eye -bone scan ordered Still hoarse a little though better Labs reviewed 07/03/21 Neck pain ++ B scan + mets or infection - unclear CT c spine w erosions of the bone, infection or mets BC still + through 07/02 Did not meet criteria for the SA bacteremia research study Summary of relevant labs: Labs: CRP 150.7, procalcitonin 0.66, WBC-15 Micro: 06/29 -07/01 Blood Culture MSSA 06/29 LP -WBC 2 - RBC 1 - cx pend Imaging: I have personally reviewed the past medical history, past surgical history, medications, social history, and family history, and I haveupdated the database accordingly. Allergies: Moxifloxacin, Peg 3350-electrolytes, Tapentadol, Avelox [moxifloxacin hydrochloride], and Cephalexin Review of Systems: Review of Systems Constitutional: Positive for fatigue and unexpected weight change. Negative for appetite change, chills and fever. HENT: Negative for ear pain, rhinorrhea and sore throat. Hoarse Eyes: Negative for pain, discharge and redness. Respiratory: Negative for cough, choking, shortness of breath and wheezing. Cardiovascular: Negative for chest pain and leg swelling. Gastrointestinal: Positive for nausea. Negative for abdominal pain, blood in stool, constipation, diarrhea and vomiting. Endocrine: Negative for cold intolerance, heat intolerance and polydipsia. Genitourinary: Negative for decreased urine volume, difficulty urinating and enuresis. Musculoskeletal: Positive for neck pain. Negative for back pain and joint swelling. Skin: Positive for wound. Negative for color change. Rash: left sole under MTS head 1. Allergic/Immunologic: Positive for immunocompromised state. Negative for food allergies. Neurological: Positive for headaches. Negative for syncope and light-headedness. Hematological: Negative for adenopathy. Psychiatric/Behavioral: Negative for agitation. The patient is not nervous/anxious. Physical Examination : Physical Exam Constitutional: General: She is not in acute distress. Appearance: She is not ill-appearing or diaphoretic. HENT: Head: Normocephalic and atraumatic. Nose: Nose normal. No rhinorrhea. Mouth/Throat: Mouth: Mucous membranes are moist. Eyes: General: No scleral icterus. Conjunctiva/sclera: Conjunctivae normal. Cardiovascular: Rate and Rhythm: Normal rate and regular rhythm. Heart sounds: Normal heart sounds. No murmur heard. Pulmonary: Effort: Pulmonary effort is normal. No respiratory distress. Breath sounds: Normal breath sounds. No stridor. No wheezing. Abdominal: General: There is no distension. Palpations: Abdomen is soft. There is no mass. Tenderness: There is no abdominal tenderness. There is no guarding. Hernia: No hernia is present. Genitourinary: Comments: Urine chanda Musculoskeletal: General: No swelling, tenderness or signs of injury. Cervical back: Rigidity present. No tenderness. Right lower leg: No edema. Left lower leg: No edema. Skin: Coloration: Skin is not jaundiced. Findings: Erythema present. No bruising. Neurological: Mental Status: She is alert and oriented to person, place, and time. Mental status is at baseline. Psychiatric: Mood and Affect: Mood normal. Behavior: Behavior normal. Past Medical History: Past Medical History: Diagnosis Date Asthma Cardiac murmur Diabetes mellitus (HCC) Foreign body of left eye Pt had hx of MRI clearance and has a foreign body in left eye. Per neuro radiologist Dr. veliz, no MRI until that foreign object in left eye is figured out. GERD (gastroesophageal reflux disease) Hyperlipidemia Hypertension Neuropathy Radiculopathy Spinal stenosis Thyroid disease Past Surgical History: Past Surgical History: Procedure Laterality Date ACHILLES TENDON SURGERY left BACK SURGERY L 4 and 5 1995, 1996 CHOLECYSTECTOMY SHOULDER SURGERY right Medications: lidocaine 1 patch TransDERmal Daily potassium bicarb-citric acid 40 mEq Oral Daily divalproex 250 mg Oral Daily fluconazole 200 mg Oral Daily lisinopril 10 mg Oral Daily levothyroxine 100 mcg Oral Daily [Held by provider] insulin glargine 16 Units SubCUTAneous Daily aspirin 81 mg Oral Daily nafcillin 2,000 mg IntraVENous Q4H carvedilol 25 mg Oral BID WC sodium chloride flush 5-40 mL IntraVENous 2 times per day enoxaparin 40 mg SubCUTAneous Daily latanoprost 1 drop Both Eyes Nightly insulin lispro 0-12 Units SubCUTAneous TID WC insulin lispro 0-6 Units SubCUTAneous Nightly Social History: Social History Socioeconomic History Marital status: Spouse name: Not on file Number of children: Not on file Years of education: Not on file Highest education level: Not on file Occupational History Not on file Tobacco Use Smoking status: Former Smoker Years: 20.00 Types: Cigarettes Quit date: 10/06/1995 Years since quittin.7 Smokeless tobacco: Never Used Substance and Sexual Activity Alcohol use: No Drug use: No Sexual activity: Not on file Other Topics Concern Not on file Social History Narrative Not on file Social Determinants of Health Financial Resource Strain: Difficulty of Paying Living Expenses: Not on file Food Insecurity: Worried About Running Out of Food in the Last Year: Not on file Ran Out of Food in the Last Year: Not on file Transportation Needs: Lack of Transportation (Medical): Not on file Lack of Transportation (Non-Medical): Not on file Physical Activity: Days of Exercise per Week: Not on file Minutes of Exercise per Session: Not on file Stress: Feeling of Stress : Not on file Social Connections: Frequency of Communication with Friends and Family: Not on file Frequency of Social Gatherings with Friends and Family: Not on file Attends Mosque Services: Not on file Active Member of Clubs or Organizations: Not on file Attends Club or Organization Meetings: Not on file Marital Status: Not on file Intimate Partner Violence: Fear of Current or Ex-Partner: Not on file Emotionally Abused: Not on file Physically Abused: Not on file Sexually Abused: Not on file Housing Stability: Unable to Pay for Housing in the Last Year: Not on file Number of Places Lived in the Last Year: Not on file Unstable Housing in the Last Year: Not on file Family History: Family History Problem Relation Age of Onset Diabetes Mother Cancer Father Medical Decision Making: I have independently reviewed/ordered the following labs: CBC with Differential: Recent Labs 07/02/219 07/02/21 1508 07/02/21 2042 07/03/21 0439 WBC 16.7* -- -- 13.6* HGB 9.0* < > 8.1* 8.4* HCT 28.2* < > 24.8* 26.1* PLT 299 -- -- 261 LYMPHOPCT 21* -- -- 18* MONOPCT 4 -- -- 5 < > = values in this interval not displayed. BMP: Recent Labs 07/02/21 0419 07/02/21 1015 07/02/21 1757 07/03/21 0439 NA 134* -- -- 134* K 2.9* < > 3.5* 2.9* CL 98 -- -- 98 CO2 25 -- -- 25 BUN 9 -- -- 7 CREATININE 0.66 -- -- 0.81 MG 2.3 -- -- 2.0 < > = values in this interval not displayed. Hepatic Function Panel: No results for input(s): PROT, LABALBU, BILIDIR, IBILI, BILITOT, ALKPHOS, ALT, AST in the last 72 hours. No results for input(s): RPR in the last 72 hours. No results for input(s): HIV in the last 72 hours. No results for input(s): BC in the last 72 hours. Lab Results Component Value Date CREATININE 0.81 07/03/2021 GLUCOSE 108 07/03/2021 GLUCOSE 229 06/04/2011 Detailed results: Thank you for allowing us to participate in the care of this patient.Please call with questions. This note is created with the assistance of a speech recognition program. While intending to generate adocument that actually reflects the content of the visit, the document can still have some errors including those of syntax and sound a like substitutions which may escape proof reading. It such instances, actual meaningcan be extrapolated by contextual diversion. Meka Crowe MD Office: [facility] / office [phone] \ Echo completed in echo lab. Images from the original note were not included. NEUROLOGY INPATIENT PROGRESS NOTE 07/03/2021 Current Exam: Chart reviewed. Discussed with RN. She reports headache is somewhat improved this morning after receiving Depacon overnight; will start her on daily Depakene due to her difficulty swallowing pills. No confusion this morning. Neurosurgery has been consulted for further evaluation of cervical spine due to concern of infection. Patient unable to get MRIs. Brief History: Meg Georges is a 56 y.o. female with H/O CIDP on IVIG every 2 weeks, DM with neuropathy, HTN, HLD, who was admitted on 06/28/2021 with confusion. She was found wandering outside of her 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. She was admitted to the medicine team and was found to have sepsis as well as a GI bleed. Neurology was consulted due to altered mentation and headache. CT head was done and was unremarkable. CTA head neck unremarkable. EEG was normal. Spinal tap was done in the ED with CSF studies negative for meningitis or SOAP MAKER infection. For her headache she was placed on Depacon with relief and also received IV mag and Fioricet. Muscle relaxer was added due to tenderness of to palpation in the left paraspinal cervical musculature. No current facility-administered medications on file prior to encounter. Current Outpatient Medications on File Prior to Encounter Medication Sig Dispense Refill insulin glargine (LANTUS) 100 UNIT/ML injection vial Inject 16 Units into the skin nightly brimonidine (ALPHAGAN P) 0.15 % ophthalmic solution Apply 1 drop to eye 2 times daily Left eye carvedilol (COREG) 25 MG tablet Take 25 mg by mouth 2 times daily (with meals) HYDROcodone-acetaminophen (NORCO) 5-325 MG per tablet Take 1 tablet by mouth every 4 hours as needed for Pain. insulin lispro (HUMALOG KWIKPEN) 100 UNIT/ML pen Inject 30 Units into the skin 3 times daily (before meals) Sliding scale coverage- Use less than 30 units with sliding scale aspirin 325 MG tablet Take 325 mg by mouth daily latanoprost (XALATAN) 0.005 % ophthalmic solution Place 1 drop into both eyes nightly lisinopril (PRINIVIL;ZESTRIL) 10 MG tablet Take 10 mg by mouth daily tiZANidine (ZANAFLEX) 4 MG tablet Take 4 mg by mouth as needed dorzolamide-timolol (COSOPT) 22.3-6.8 MG/ML ophthalmic solution Place 1 drop into the right eye 2 times daily Multiple Vitamins-Minerals (MULTIVITAMIN ADULT PO) Take 1 tablet by mouth daily levothyroxine (SYNTHROID) 112 MCG tablet Take 112 mcg by mouth Daily Allergies: Meg Georges is allergic to moxifloxacin, peg 3350-electrolytes, tapentadol, avelox [moxifloxacin hydrochloride], and cephalexin. Past Medical History: Diagnosis Date Asthma Cardiac murmur Diabetes mellitus (HCC) Foreign body of left eye Pt had hx of MRI clearance and has a foreign body in left eye. Per neuro radiologist Dr. veliz, no MRI until that foreign object in left eye is figured out. GERD (gastroesophageal reflux disease) Hyperlipidemia Hypertension Neuropathy Radiculopathy Spinal stenosis Thyroid disease Past Surgical History: Procedure Laterality Date ACHILLES TENDON SURGERY left BACK SURGERY L 4 and 5 1995, 1996 CHOLECYSTECTOMY SHOULDER SURGERY right Social History: Meg Georges reports that she quit smoking about 25 years ago. Her smoking use included cigarettes. She quit after 20.00 years of use. She has never used smokeless tobacco. She reports that she does not drink alcohol and does not use drugs. Family History Problem Relation Age of Onset Diabetes Mother Cancer Father Objective: BP (!) 125/58 Pulse 79 Temp 97.7 F (36.5 C) (Oral) Resp 15 Ht 5' 5 (1.651 m) Wt 145 lb (65.8 kg) LMP 12/02/2011 SpO2 100% BMI 24.13 kg/m Blood pressure range: Systolic (24hrs), Av , Min:121 , Max:157 ; Diastolic (24hrs), Av, Min:56, Max:92 Review of Systems: Constitutional Negative for fever and chills HEENT Negative for ear discharge, ear pain, nosebleed. + headache with cervical neck pain Eyes Negative for photophobia, pain and discharge Respiratory Negative for hemoptysis and sputum Cardiovascular Negative for orthopnea, claudication and PND Gastrointestinal Negative for abdominal pain, diarrhea, blood in stool Musculoskeletal Negative for joint pain, negative for myalgia Skin Negative for rash or itching Endo/heme/allergies Negative for polydipsia, environmental allergy Psychiatric/behavioral Negative for suicidal ideation. Patient is not anxious NEUROLOGIC EXAMINATION GENERAL Appears comfortable and in no distress HEENT NC/ AT NECK Supple MENTAL STATUS: Alert, oriented, intact memory, no confusion, quiet speech, normal language, no hallucination or delusion CRANIAL NERVES: II - Visual bobo intact to confrontation III,IV, - EOMs full, no afferent defect, no JOHANNE, no ptosis V - Normal facial sensation VII - Normal facial symmetry VIII - Intact hearing IX,X - Symmetrical palate XI - Symmetrical shoulder shrug XII - Midline tongue, no atrophy MOTOR FUNCTION: Lifts all limbs antigravity with normal bulk, normal tone and no involuntary movements, no tremor SENSORY FUNCTION: Normal touch, normal pin CEREBELLAR FUNCTION: Intact fine motor control over upper limbs REFLEX FUNCTION: Symmetric, no perverted reflex, no Babinski sign STATION and GAIT Not tested Data: Lab Results: CBC: Recent Labs 07/01/21 0631 07/01/21 1558 07/02/21 0419 07/02/21 0419 07/02/21 1508 07/02/21 2042 07/03/21 0439 WBC 12.6* -- 16.7* -- -- -- 13.6* HGB 9.0* < > 9.0* < > 9.1* 8.1* 8.4* PLT 284 -- 299 -- -- -- 261 < > = values in this interval not displayed. BMP: Recent Labs 07/01/21 0631 07/01/21 0845 07/02/21 0419 07/02/21 0419 07/02/21 1015 07/02/21 1757 07/03/21 0439 NA 137 -- 134* -- -- -- 134* K 2.2* < > 2.9* < > 3.5* 3.5* 2.9* CL 102 -- 98 -- -- -- 98 CO2 25 -- 25 -- -- -- 25 BUN 18 -- 9 -- -- -- 7 CREATININE 0.97* -- 0.66 -- -- -- 0.81 GLUCOSE 117* -- 67* -- -- -- 108* < > = values in this interval not displayed. Lab Results Component Value Date CHOL 155 06/28/2021 LDLCHOLESTEROL 63 06/28/2021 HDL 71 06/28/2021 TRIG 105 06/28/2021 ALT 19 06/28/2021 AST 19 06/28/2021 TSH 0.15 (L) 06/28/2021 INR 1.2 06/28/2021 LABA1C 9.4 (H) 06/28/2021 LABMICR 7 06/25/2013 [id number] 06/28/2016 Diagnostic data reviewed: CT HEAD (06/28/21) - 1. Poorly diagnostic examination due to patient motion. 2. No gross evidence of hemorrhage or mass effect. CTA HEAD AND NECK (06/28/21) - Unremarkable CTA of the head and neck. CT CERVICAL SPINE (06/29/21) - Erosive changes identified at the craniocervical junction other may related to nonspecific inflammatory arthropathy/rheumatoid arthritis, given the degree of erosions involving the clivus and both lateral mass identified both condyles, infection/underlying possibility of underlying osteomyelitis should be considered in the appropriate clinical setting. MRI could be beneficial for more definitive characterization. EEG (06/29/21) - Normal awake and sleep EEG. ECHO (07/03/21) - Normal LV size and wall thickness. No obvious wall motion abnormality seen. Normal LV systolic function with LVEF >55%. Normal RV size and function. LA and RA appears normal in size.Difficult to R/O small PFO No obvious significant structural valvular abnormality noted. No significant valvular stenosis or regurgitation noted. Normal aortic root dimension. No significant pericardial effusion noted. No obvious evidence of endocarditis noted. IVC normal diameter and inspiratory variation indicating normal RA filling Pressure. Impression: -Acute metabolic encephalopathy in the setting of MSSA bacteremia, sepsis; improved -Acute intractable headache with muscular neck pain -GI bleed -History of CIDP Plan: -CSF studies are negative for SOAP MAKER infection -Patient headache is improved with Depacon; will add Depakene 250mg daily due to her difficulty swallowing pills -GI is following, patient is s/p EGD with findings suggestive of Alan esophagitis -ID is following; patient remains on antibiotics with recommendation for neurosurgery evaluation given concern of possible infection in cervical spine -PT/OT -We will follow Please note that this note was generated using a voice recognition dictation software. Although every effort was made to ensure the accuracy of this automated dampener, some errors in dampener may have occurred. Images from the original note were not included. [facility] Internal Medicine Teaching Residency Program Inpatient Daily Progress Note __ Patient: Meg Georges Date of : 1965 Acct: [id number] Room: [address] [place] [address]- Admit date: 06/28/2021 Today's date: 07/03/21 Number of days in the hospital: 5 SUBJECTIVE Admitting Diagnosis: Sepsis (HCC) CC: altered mentation Pt examined at bedside. Chart & results reviewed. BP 131/56, pulse 84, afebrile. Has diarrhea. Imodium ordered. K+ 2.9 will replace. MBSS to the EGD revealed alan esophagitis. Patient started on Diflucan ROS: Constitutional: negative for chills, fevers, sweats Respiratory: negative for cough, dyspnea on exertion, hemoptysis, shortness of breath, wheezing Cardiovascular: negative for chest pain, chest pressure/discomfort, lower extremity edema, palpitations Gastrointestinal: negative for abdominal pain, constipation, diarrhea, nausea, vomiting Neurological: negative for dizziness, headache BRIEF HISTORY The patient is a pleasant 56 y.o. female presents with a chief complaint of altered mentation. 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 Presented to ED from 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, found confused outside. Imaging negative. She complains of headache /, not sure how she got to ED. Denies fever, vomiting, chest kristan, cough, SOB, abdominal pain. States last BM yesterday soft. Patient somnolent but arousable, follows command, hypertensive BP as high as 202/105, HR 110, on room air. Significant labs include glycemia 254, wbc 22. Lumbar tap done. Not concerning for acute meningitis. OBJECTIVE Vital Signs: BP (!) 131/56 Pulse 84 Temp 98.2 F (36.8 C) Resp 25 Ht 5' 5 (1.651 m) Wt 145 lb (65.8 kg) LMP 12/02/2011 SpO2 100% BMI 24.13 kg/m Temp (24hrs), Av.8 F (36.6 C), Min:97 F (36.1 C), Max:98.4 F (36.9 C) In: 540 Out: 400 [Urine:400] Physical Exam: Constitutional: This is a well developed, well nourished, 18.5-24.9 - Normal 56 y.o. year old female who is alert, oriented, cooperative. Head:normocephalic and atraumatic. EENT: PERRLA. No conjunctival injections. Septum was midline, mucosa was without erythema, exudates or cobblestoning. No thrush was noted. Neck: Supple without thyromegaly. No palpable lymphadenopathy. Generalized tenderness anterior neck. No elevated JVP. Trachea was midline. Respiratory: Chest was symmetrical without dullness to percussion. Breath sounds bilaterally were clear to auscultation. There were no wheezes, rhonchi or rales. There is no intercostal retraction or use of accessory muscles. No egophony noted. Cardiovascular: Regular without murmur, clicks, gallops or rubs. Abdomen: Slightly rounded and soft without organomegaly. No rebound, rigidity or guarding was appreciated. Lymphatic: No lymphadenopathy. Musculoskeletal: Normal curvature of the spine. No gross muscle weakness. Extremities: No lower extremity edema, ulcerations, tenderness, varicosities or erythema. Muscle size, tone and strength are normal. No involuntary movements are noted. Skin: Ulcer present on left foot. Loss of sensation Neurological/Psychiatric: Patient alert and oriented x 3, memory intact, concentration preserved. Moves all extremities.decreased sensation in socks glove pattern Medications: Scheduled Medications: lidocaine 1 patch TransDERmal Daily potassium bicarb-citric acid 40 mEq Oral Daily potassium chloride 40 mEq IntraVENous Once fluconazole 200 mg Oral Daily lisinopril 10 mg Oral Daily levothyroxine 100 mcg Oral Daily [Held by provider] insulin glargine 16 Units SubCUTAneous Daily aspirin 81 mg Oral Daily nafcillin 2,000 mg IntraVENous Q4H carvedilol 25 mg Oral BID sodium chloride flush 5-40 mL IntraVENous 2 times per day enoxaparin 40 mg SubCUTAneous Daily latanoprost 1 drop Both Eyes Nightly insulin lispro 0-12 Units SubCUTAneous TID WC insulin lispro 0-6 Units SubCUTAneous Nightly Continuous Infusions: dextrose PRN Medicationsloperamide, 2 mg, 4x Daily PRN tiZANidine, 2 mg, Q8H PRN rcyffqgeiu-ibzkbsyaszmti-bnubrkhi, 1 tablet, Q4H PRN hydrALAZINE, 10 mg, Q4H PRN sodium chloride flush, 5-40 mL, PRN ondansetron, 4 mg, Q8H PRN Or ondansetron, 4 mg, Q6H PRN bisacodyl, 5 mg, Daily PRN sodium chloride flush, 5-40 mL, PRN labetalol, 10 mg, Q4H PRN glucose, 4 tablet, PRN dextrose bolus, 125 mL, PRN Or dextrose bolus, 250 mL, PRN glucagon (rDNA), 1 mg, PRN dextrose, 100 mL/hr, PRN Diagnostic Labs: CBC: Recent Labs 07/01/21 0631 07/01/21 1558 07/02/21 0419 07/02/21 0419 07/02/21 1508 07/02/21 2042 07/03/21 0439 WBC 12.6* -- 16.7* -- -- -- 13.6* RBC 3.43* -- 3.47* -- -- -- 3.22* HGB 9.0* < > 9.0* < > 9.1* 8.1* 8.4* HCT 28.4* < > 28.2* < > 29.0* 24.8* 26.1* MCV 82.8 -- 81.3* -- -- -- 81.1* RDW 16.2* -- 16.3* -- -- -- 16.5* PLT 284 -- 299 -- -- -- 261 < > = values in this interval not displayed. BMP: Recent Labs 07/01/21 0631 07/01/21 0845 07/02/21 0419 07/02/21 0419 07/02/21 1015 07/02/21 1757 07/03/21 0439 NA 137 -- 134* -- -- -- 134* K 2.2* < > 2.9* < > 3.5* 3.5* 2.9* CL 102 -- 98 -- -- -- 98 CO2 25 -- 25 -- -- -- 25 BUN 18 -- 9 -- -- -- 7 CREATININE 0.97* -- 0.66 -- -- -- 0.81 < > = values in this interval not displayed. BNP: No results for input(s): BNP in the last 72 hours. PT/INR: No results for input(s): PROTIME, INR in the last 72 hours. APTT: No results for input(s): APTT in the last 72 hours. CARDIAC ENZYMES: No results for input(s): CKMB, CKMBINDEX, TROPONINI in the last 72 hours. Invalid input(s): CKTOTAL;3 FASTING LIPID PANEL: Lab Results Component Value Date CHOL 155 06/28/2021 HDL 71 06/28/2021 TRIG 105 06/28/2021 LIVER PROFILE: No results for input(s): AST, ALT, ALB, BILIDIR, BILITOT, ALKPHOS in the last 72 hours. MICROBIOLOGY: Lab Results Component Value Date/Time CULTURE NO GROWTH <24 HRS 07/03/2021 04:39 AM Imaging: CT Head WO Contrast Result Date: 06/28/2021 1. Poorly diagnostic examination due to patient motion. 2. No gross evidence of hemorrhage or mass effect. A telephone call regarding the findings in examination and limitations the study was made to and acknowledged by Dr. Boothe in the emergency department at 4:55 AM on 06/28/2021. CT ABDOMEN PELVIS W IV CONTRAST Additional Contrast? None Result Date: 06/28/2021 1. No evidence of bowel obstruction. 2. Normal appendix. 3. Status post cholecystectomy. XR CHEST PORTABLE Result Date: 06/28/2021 No acute abnormality. CTA HEAD NECK W CONTRAST Result Date: 06/28/2021 Unremarkable CTA of the head and neck. ASSESSMENT & PLAN Sepsis with MSSA bacteremia; source unknown: -continu Nafcillin 2 g q 4 h. Stop date 07-29-21 per ID -Repeat blood cultures positive -echo completed read pending - Erosive changes at craniocervical junction which may be related to arthritis or osteomyelitis by CT cervical spine 06-29-21 -left foot ulceration; Podiatry consulted for concern for osteomyelitis and possible source of MSSA bacteremia -XR left foot negative for osteomyelitis - CT chest showed right upper lobe pulmonary nodule -resp viral panel negative -Getting bone scan 3-phase Alan esophagitis: - on EGD 07/02/2021. On Diflucan 200 mg daily for 14 days. GI signed off Hypothyroidism: -TSH low. - levothyroxine dose decreased from 112 mcg to 100 mcg daily Diabetes Mellitus type II: -medium dose ISS -hypoglycemia protocol - glucose checks q4 Essential hypertension: -On Coreg and lisinopril. Currently controlled Elevated troponins: Downtrending likely type II AL -echo result pending Hypokalemia: K+ 2.9 today. Replace PO and IV and monitor Left Vocal cord paralysis: Ongoing x 1 month. ENT on board. Plan for injection laryngoplasty for voice/swallowing improvement at some point. Needs formal speech therapy/swallow study assessment as she is likely aspirating liquids. Unable to get MRI due to foreign body in left eye. Rufus Argueta MD Internal Medicine Resident, PGY- 1 [facility]; [place], [place] 07/03/2021, 5:58 AM Associated attestation - Johnny Robledo MD - 07/03/2021 2:25 PM EDT Attending Supervising Physician s Attestation Statement I have seen and examined Meg Georges and the coffey elements of all parts of the encounter have been performed by me. I agree with the assessment, plan and orders as documented by the Advanced Practice Provider. I discussed the findings and plans with the resident physician and agree as documented in their note . In addition to the pertinent positives and negatives as stated within HPI and the review of systems as documented in the notes, all other systems were reviewed when able to and are reported negative. Additional Comments: recent blood cultures remain positive. Case discussed with Dr Crowe, bone scan concerning for osteomyelitis. Recommending NS evaluation Images from the original note were not included. [facility] - Infectious diseases evaluation admission date 06/28/2021 reason for consultation: Sepsis with staph bacteremia Impression : Current: MSSA septicemia CRP elevation bandemia Acute metabolic encephalopathy- resolving -LP neg CIDP chronic IVIG therapy - immunosuppressdUlcer on the left foot Allergy to keflex and avelox - tolerates PNC Other: Hypothyroidism Diabetes mellitus type 2 Essential hypertension Elevated troponin CIDP on IVIG infusions every 2 weeks Discussion / summary of stay / plan of care Recommendations Acute encephalopathy from sepsis - resolved - LP neg MSSA septicemia - Echo look for vegetation BC repeat till neg Nafcillin 2 g q 4 Cough - neg CT chest for septic emboli Neck new pain -1 Mo old - CT - erosive changes MRI C spine deferred due to foreign object in the eye pend bone scan to the neck Infection Control Recommendations [place] Precautions Contact Isolation Antimicrobial Stewardship Recommendations Simplification of therapy Targeted therapy History of Present Illness: Initial history: Meg Georges is a 56 y.o.-year-old female presented to the ED for altered mental status. Patient is currently admitted under neurology service. Patient presented from a 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 after an episode of confusion overnight where she was found wandering outside her 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. She had CT head done at outside facility which did not show any acute changes, telestroke was consulted for the concern of confusion, they recommended transfer to [facility] for MRI of the brain. BC SA MSSA and LP neg CRP elevated and WBc up - creat normal 06/29 mentally recovered Neck pain x 1 mo Left sole callus was infected x 2 months ago at the CT She gets her IvIg through a periph that gets pulled each time - no picc outpt Hoarse x some time wo reason Cough x 1 month Interval changes 07/02/2021 Patient Vitals for the past 8 hrs: BP Temp Temp src Pulse Resp SpO2 07/02/21 1343 (!) 148/68 87 23 100 % 07/02/21 1328 (!) 149/78 90 28 100 % 07/02/21 1313 (!) 157/70 97 24 100 % 07/02/21 1241 (!) 147/71 97 F (36.1 C) 84 22 100 % 07/02/21 1215 97 % 07/02/21 1200 137/61 98 F (36.7 C) Oral 85 13 99 % 07/02/21 0800 (!) 152/67 98 F (36.7 C) Oral 74 17 EGD 07/02 + alan esophagitis - starting fluconazole Still neck pain - MRI deferred due to metal in eye -bone scan ordered Still hoarse a little though better Labs reviewed Summary of relevant labs: Labs: CRP 150.7, procalcitonin 0.66, WBC-15 Micro: 06/29 -07/01 Blood Culture MSSA 06/29 LP -WBC 2 - RBC 1 - cx pend Imaging: I have personally reviewed the past medical history, past surgical history, medications, social history, and family history, and I haveupdated the database accordingly. Allergies: Moxifloxacin, Peg 3350-electrolytes, Tapentadol, Avelox [moxifloxacin hydrochloride], and Cephalexin Review of Systems: Review of Systems Constitutional: Positive for fatigue and unexpected weight change. Negative for appetite change, chills and fever. HENT: Negative for ear pain, rhinorrhea and sore throat. Hoarse Eyes: Negative for pain, discharge and redness. Respiratory: Positive for cough. Negative for choking, shortness of breath and wheezing. Cardiovascular: Negative for chest pain and leg swelling. Gastrointestinal: Positive for constipation and nausea. Negative for abdominal pain, blood in stool, diarrhea and vomiting. Endocrine: Negative for cold intolerance. Genitourinary: Negative for decreased urine volume, difficulty urinating and enuresis. Musculoskeletal: Positive for neck pain. Negative for back pain and joint swelling. Skin: Positive for wound. Negative for color change. Rash: left sole under MTS head 1. Allergic/Immunologic: Positive for immunocompromised state. Negative for food allergies. Neurological: Positive for headaches. Negative for syncope and light-headedness. Hematological: Negative for adenopathy. Psychiatric/Behavioral: Negative for agitation. The patient is not nervous/anxious. Physical Examination : Physical Exam Constitutional: General: She is not in acute distress. Appearance: She is not ill-appearing or diaphoretic. HENT: Head: Normocephalic and atraumatic. Nose: Nose normal. No rhinorrhea. Mouth/Throat: Mouth: Mucous membranes are moist. Eyes: General: No scleral icterus. Conjunctiva/sclera: Conjunctivae normal. Cardiovascular: Rate and Rhythm: Normal rate and regular rhythm. Heart sounds: Normal heart sounds. No murmur heard. Pulmonary: Effort: Pulmonary effort is normal. No respiratory distress. Breath sounds: Normal breath sounds. No stridor. No wheezing. Abdominal: General: There is no distension. Palpations: Abdomen is soft. There is no mass. Tenderness: There is no abdominal tenderness. There is no guarding. Hernia: No hernia is present. Genitourinary: Comments: Urine chanda Musculoskeletal: General: No swelling. Cervical back: Rigidity and tenderness present. Right lower leg: No edema. Left lower leg: No edema. Skin: Coloration: Skin is not jaundiced. Findings: Erythema present. No bruising. Neurological: Mental Status: She is alert and oriented to person, place, and time. Mental status is at baseline. Psychiatric: Mood and Affect: Mood normal. Behavior: Behavior normal. Past Medical History: Past Medical History: Diagnosis Date Asthma Cardiac murmur Diabetes mellitus (HCC) Foreign body of left eye Pt had hx of MRI clearance and has a foreign body in left eye. Per neuro radiologist Dr. veliz, no MRI until that foreign object in left eye is figured out. GERD (gastroesophageal reflux disease) Hyperlipidemia Hypertension Neuropathy Radiculopathy Spinal stenosis Thyroid disease Past Surgical History: Past Surgical History: Procedure Laterality Date ACHILLES TENDON SURGERY left BACK SURGERY L 4 and 5 1995, 1996 CHOLECYSTECTOMY SHOULDER SURGERY right Medications: fluconazole 200 mg Oral Daily valproate sodium (DEPACON) IVPB 250 mg IntraVENous Q8H [Held by provider] lisinopril 20 mg Oral Daily levothyroxine 100 mcg Oral Daily [Held by provider] insulin glargine 16 Units SubCUTAneous Daily aspirin 81 mg Oral Daily nafcillin 2,000 mg IntraVENous Q4H carvedilol 25 mg Oral BID WC sodium chloride flush 5-40 mL IntraVENous 2 times per day [Held by provider] enoxaparin 40 mg SubCUTAneous Daily latanoprost 1 drop Both Eyes Nightly insulin lispro 0-12 Units SubCUTAneous TID WC insulin lispro 0-6 Units SubCUTAneous Nightly Social History: Social History Socioeconomic History Marital status: Spouse name: Not on file Number of children: Not on file Years of education: Not on file Highest education level: Not on file Occupational History Not on file Tobacco Use Smoking status: Former Smoker Years: 20.00 Types: Cigarettes Quit date: 10/06/1995 Years since quittin.7 Smokeless tobacco: Never Used Substance and Sexual Activity Alcohol use: No Drug use: No Sexual activity: Not on file Other Topics Concern Not on file Social History Narrative Not on file Social Determinants of Health Financial Resource Strain: Difficulty of Paying Living Expenses: Not on file Food Insecurity: Worried About Running Out of Food in the Last Year: Not on file Ran Out of Food in the Last Year: Not on file Transportation Needs: Lack of Transportation (Medical): Not on file Lack of Transportation (Non-Medical): Not on file Physical Activity: Days of Exercise per Week: Not on file Minutes of Exercise per Session: Not on file Stress: Feeling of Stress : Not on file Social Connections: Frequency of Communication with Friends and Family: Not on file Frequency of Social Gatherings with Friends and Family: Not on file Attends Mosque Services: Not on file Active Member of Clubs or Organizations: Not on file Attends Club or Organization Meetings: Not on file Marital Status: Not on file Intimate Partner Violence: Fear of Current or Ex-Partner: Not on file Emotionally Abused: Not on file Physically Abused: Not on file Sexually Abused: Not on file Housing Stability: Unable to Pay for Housing in the Last Year: Not on file Number of Places Lived in the Last Year: Not on file Unstable Housing in the Last Year: Not on file Family History: Family History Problem Relation Age of Onset Diabetes Mother Cancer Father Medical Decision Making: I have independently reviewed/ordered the following labs: CBC with Differential: Recent Labs 07/01/21 0631 07/01/21 1558 07/01/21 2048 07/02/21 0419 WBC 12.6* -- -- 16.7* HGB 9.0* < > 8.8* 9.0* HCT 28.4* < > 27.2* 28.2* PLT 284 -- -- 299 LYMPHOPCT 17* -- -- 21* MONOPCT 6 -- -- 4 < > = values in this interval not displayed. BMP: Recent Labs 07/01/21 0631 07/01/21 0631 07/01/21 0845 07/01/21 1558 07/02/21 0419 07/02/21 1015 NA 137 -- -- -- 134* -- K 2.2* < > 2.4* < > 2.9* 3.5* CL 102 -- -- -- 98 -- CO2 25 -- -- -- 25 -- BUN 18 -- -- -- 9 -- CREATININE 0.97* -- -- -- 0.66 -- MG 2.0 < > 1.9 -- 2.3 -- < > = values in this interval not displayed. Hepatic Function Panel: No results for input(s): PROT, LABALBU, BILIDIR, IBILI, BILITOT, ALKPHOS, ALT, AST in the last 72 hours. No results for input(s): RPR in the last 72 hours. No results for input(s): HIV in the last 72 hours. No results for input(s): BC in the last 72 hours. Lab Results Component Value Date CREATININE 0.66 07/02/2021 GLUCOSE 67 07/02/2021 GLUCOSE 229 06/04/2011 Detailed results: Thank you for allowing us to participate in the care of this patient.Please call with questions. This note is created with the assistance of a speech recognition program. While intending to generate adocument that actually reflects the content of the visit, the document can still have some errors including those of syntax and sound a like substitutions which may escape proof reading. It such instances, actual meaningcan be extrapolated by contextual diversion. Meka Crowe MD Office: [facility] / office [phone] \ Speech Language Pathology [facility] Speech Language Pathology Date: 07/02/2021 Patient Name: Meg Georges Date of : 1965 AGE: 56 y.o. Patient Not Available for Speech Therapy Due to: [] Testing [] Hemodialysis [] Cancelled by RN [] Surgery [] Intubation/Sedation/Pain Medication [] Medical instability [x] Other: Spoke with RN, Recommend MBSS prior to PO initiation. Per RN pt. NPO today for EGD. Next scheduled treatment: as appropriate Completed by: HOLGER Larson, M.S. [facility] NEUROLOGY INPATIENT PROGRESS NOTE 07/02/2021 Subjective: Meg Georges is a 56 y.o. female admitted on 06/28/2021 with Stupor [R40.1] Encephalitis [G04.90] Altered mental state [R41.82] Briefly, this is a 56 y.o. 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 She was found wandering outside her 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. Admitted to medicine for sepsis work up, with unknown source. Also noted to have upper GI bleed. Patient also experiencing a headache. Left frontal. Patients initial work up was CT Head which was unremarkable but had some motion degrading. CTA H/N unremarkable CT check 7mm ground glass nodule posterior right upper lobe. EEG normal awake and asleep Spinal tap by ED CSF studies 06/28/21 Oligoclonal banding negative Meningitis encephalitis panel negative Normal WBC and protein Albumin index elevated 27, WBC 2, RBC1, Protein 20.7, glucose 143, Culture no growth X4 days Lipid panel Total cholestorol 155, LDL 63 A1c 9.4 For headache, no response to fioricet Got IV mag 2gm Depacon 500 followed by 250 q8. Today, she is still reporting a headache. More so in her left occipital region and radiation down her neck. Has muscle relaxant on med list and had some relief in the past. Is NPO for EGD No current facility-administered medications on file prior to encounter. Current Outpatient Medications on File Prior to Encounter Medication Sig Dispense Refill insulin glargine (LANTUS) 100 UNIT/ML injection vial Inject 16 Units into the skin nightly brimonidine (ALPHAGAN P) 0.15 % ophthalmic solution Apply 1 drop to eye 2 times daily Left eye carvedilol (COREG) 25 MG tablet Take 25 mg by mouth 2 times daily (with meals) HYDROcodone-acetaminophen (NORCO) 5-325 MG per tablet Take 1 tablet by mouth every 4 hours as needed for Pain. insulin lispro (HUMALOG KWIKPEN) 100 UNIT/ML pen Inject 30 Units into the skin 3 times daily (before meals) Sliding scale coverage- Use less than 30 units with sliding scale aspirin 325 MG tablet Take 325 mg by mouth daily latanoprost (XALATAN) 0.005 % ophthalmic solution Place 1 drop into both eyes nightly lisinopril (PRINIVIL;ZESTRIL) 10 MG tablet Take 10 mg by mouth daily tiZANidine (ZANAFLEX) 4 MG tablet Take 4 mg by mouth as needed dorzolamide-timolol (COSOPT) 22.3-6.8 MG/ML ophthalmic solution Place 1 drop into the right eye 2 times daily Multiple Vitamins-Minerals (MULTIVITAMIN ADULT PO) Take 1 tablet by mouth daily levothyroxine (SYNTHROID) 112 MCG tablet Take 112 mcg by mouth Daily Allergies: Meg Georges is allergic to moxifloxacin, peg 3350-electrolytes, tapentadol, avelox [moxifloxacin hydrochloride], and cephalexin. Past Medical History: Diagnosis Date Asthma Cardiac murmur Diabetes mellitus (HCC) Foreign body of left eye Pt had hx of MRI clearance and has a foreign body in left eye. Per neuro radiologist Dr. veliz, no MRI until that foreign object in left eye is figured out. GERD (gastroesophageal reflux disease) Hyperlipidemia Hypertension Neuropathy Radiculopathy Spinal stenosis Thyroid disease Past Surgical History: Procedure Laterality Date ACHILLES TENDON SURGERY left BACK SURGERY L 4 and 5 1995, 1996 CHOLECYSTECTOMY SHOULDER SURGERY right Medications: valproate sodium (DEPACON) IVPB 250 mg IntraVENous Q8H [Held by provider] lisinopril 20 mg Oral Daily levothyroxine 100 mcg Oral Daily [Held by provider] insulin glargine 16 Units SubCUTAneous Daily aspirin 81 mg Oral Daily nafcillin 2,000 mg IntraVENous Q4H carvedilol 25 mg Oral BID WC sodium chloride flush 5-40 mL IntraVENous 2 times per day [Held by provider] enoxaparin 40 mg SubCUTAneous Daily latanoprost 1 drop Both Eyes Nightly insulin lispro 0-12 Units SubCUTAneous TID WC insulin lispro 0-6 Units SubCUTAneous Nightly PRN Meds include: jpurvwzdrq-qfclmmlmvabae-rrmgjwrw, hydrALAZINE, sodium chloride flush, sodium chloride, ondansetron OR ondansetron, acetaminophen OR acetaminophen, bisacodyl, sodium chloride flush, labetalol, glucose, dextrose bolus OR dextrose bolus, glucagon (rDNA), dextrose Objective: BP (!) 114/58 Pulse 66 Temp 97.8 F (36.6 C) Resp 25 Ht 5' 5 (1.651 m) Wt 145 lb (65.8 kg) LMP 12/02/2011 SpO2 99% BMI 24.13 kg/m Blood pressure range: Systolic (24hrs), Av , Min:114 , Max:156 ; Diastolic (24hrs), Av, Min:58, Max:79 ROS: CONSTITUTIONAL: negative for fatigue and malaise EYES: negative for double vision and photophobia HEENT: negative for tinnitus and sore throat RESPIRATORY: negative for cough, shortness of breath CARDIOVASCULAR: negative for chest pain, palpitations, or syncope GASTROINTESTINAL: negative for abdominal pain, nausea, vomiting, diarrhea, or constipation GENITOURINARY: negative for incontinence or retention MUSCULOSKELETAL: negative for neck or back pain, negative for extremity pain NEUROLOGICAL: Positive for headache. Negative for seizures, weakness, numbness, confusion, aphasia, dysarthria PSYCHIATRIC: negative for agitation, hallucination, SI/HI SKIN Negative for spontaneous contusions, rashes, or lesions NEUROLOGIC EXAMINATION GENERAL Appears comfortable and in no distress HEENT NC/ AT HEART S1 and S2 heard; palpation of pulses: radial pulse NECK Supple and no bruits heard MENTAL STATUS: Alert, oriented, intact memory, no confusion, normal speech, normal language, no hallucination or delusion CRANIAL NERVES: II - Visual bobo intact to confrontation III,IV, - PERR, EOMs full, no ptosis V - Normal facial sensation VII - Normal facial symmetry VIII - Intact hearing IX,X - Symmetrical palate XI - Symmetrical shoulder shrug XII - Midline tongue, no atrophy MOTOR FUNCTION: RUE: Significant for good strength of grade 5/5 in proximal and distal muscle groups LUE: Significant for good strength of grade 5/5 in proximal and distal muscle groups RLE: Significant for good strength of grade 5/5 in proximal and distal muscle groups LLE: Significant for good strength of grade 5/5 in proximal and distal muscle groups Normal bulk, normal tone and no involuntary movements, no tremor SENSORY FUNCTION: Normal touch, normal pin, normal vibration, normal proprioception CEREBELLAR FUNCTION: Intact fine motor control over upper limbs and lower limbs REFLEX FUNCTION: Symmetric in upper and lower extremities, no Babinski sign STATION and GAIT Not tested due to condition Data: Lab Results: CBC: Recent Labs 07/01/21 0631 07/01/21 0631 07/01/21 1558 07/01/21 2048 07/02/21 0419 WBC 12.6* -- -- -- 16.7* HGB 9.0* < > 8.6* 8.8* 9.0* PLT 284 -- -- -- 299 < > = values in this interval not displayed. BMP: Recent Labs 07/01/21 0631 07/01/21 0631 07/01/21 0845 07/01/21 1558 07/02/21 0419 NA 137 -- -- -- 134* K 2.2* < > 2.4* 2.5* 2.9* CL 102 -- -- -- 98 CO2 25 -- -- -- 25 BUN 18 -- -- -- 9 CREATININE 0.97* -- -- -- 0.66 GLUCOSE 117* -- -- -- 67* < > = values in this interval not displayed. Lab Results Component Value Date CHOL 155 06/28/2021 LDLCHOLESTEROL 63 06/28/2021 HDL 71 06/28/2021 TRIG 105 06/28/2021 ALT 19 06/28/2021 AST 19 06/28/2021 TSH 0.15 (L) 06/28/2021 INR 1.2 06/28/2021 LABA1C 9.4 (H) 06/28/2021 LABMICR 7 06/25/2013 [id number] 06/28/2016 No results found for: PHENYTOIN, PHENYTOIN, VALPROATE, CBMZ IMAGING CT Head WO Contrast Result Date: 06/28/2021 INDICATION: 56 years old; Female. Change in mental status. TECHNIQUE: CT Head (ax/cor/sag reformats). Ionizing radiation dose reduced via iterative reconstruction/FBP blend and body size kV/mA adjustment. Comparison: Head CT dated 10/06/2016. There are extensive motion artifacts and streak artifacts. The study is poorly diagnostic. FINDINGS: POSTOPERATIVE CHANGES: None. BRAIN PARENCHYMA: Allowing for artifacts, there is no gross evidence of hemorrhage or mass effect. No midline shift or herniation. There is grossly normal shah/white differentiation. VENTRICLES/EXTRA-AXIAL SPACES: Enlarged consistent with atrophy. SINUSES/MASTOIDS: Poorly evaluated due to artifact. No gross evidence of opacification or fluid levels. Mastoid air cells are clear. MSK: No gross evidence of displaced or depressed fractures, however the calvarium is deformed due to artifacts. Incidental note is made of cystic changes in the dens and body of C2. This is not adequately evaluated in the present study. OTHER: None. 1. Poorly diagnostic examination due to patient motion. 2. No gross evidence of hemorrhage or mass effect. A telephone call regarding the findings in examination and limitations the study was made to and acknowledged by Dr. Boothe in the emergency department at 4:55 AM on 06/28/2021. CT CHEST WO CONTRAST Result Date: 06/29/2021 EXAMINATION: CT OF THE CHEST WITHOUT CONTRAST 06/29/2021 7:14 pm TECHNIQUE: CT of the chest was performed without the administration of intravenous contrast. Multiplanar reformatted images are provided for review. Automated exposure control, iterative reconstruction, and/or weight based adjustment of the mA/kV was utilized to reduce the radiation dose to as low as reasonably achievable. COMPARISON: None. HISTORY: ORDERING SYSTEM PROVIDED HISTORY: look for septic pulm - no need for contrast TECHNOLOGIST PROVIDED HISTORY: look for septic pulm - no need for contrast Reason for Exam: look for septic pulm - no need for contrast FINDINGS: Mediastinum: The heart and great vessels are normal in size. Calcified atheromatous plaque and coronary calcifications are noted. No pericardial effusion. No enlarged or suspicious-appearing lymph nodes are identified. Lungs/pleura: 7 mm ground-glass nodule in the posterior right upper lobe on axial image 51 is noted, otherwise the lungs are clear. No effusion. The central airway is patent. Upper Abdomen: Exophytic indeterminate left renal lesions measuring 12 and 13 mm. Cholecystectomy. Soft Tissues/Bones: No acute findings. 1. 7 mm ground-glass nodule in the posterior right upper lobe. Please see follow-up recommendations below. 2. No consolidation or acute inflammatory process otherwise appreciated. 3. Indeterminate exophytic left renal lesions which could be further characterized by CT or MRI renal mass protocol. RECOMMENDATIONS: 7 mm right ground-glass pulmonary nodule within the upper lobe. Recommend a non-contrast Chest CT at 6-12 months to confirm persistence, then additional non-contrast Chest CTs every 2 years until 5 years. If nodule grows or develops solid component(s), consider resection. These guidelines do not apply to immunocompromised patients and patients with cancer. Follow up in patients with significant comorbidities as clinically warranted. For lung cancer screening, adhere to Lung-RADS guidelines. Reference: Radiology. 2017; 284(1):228-43. CT CERVICAL SPINE W CONTRAST Result Date: 06/29/2021 EXAMINATION: CT OF THE CERVICAL SPINE WITH CONTRAST 06/29/2021 7:14 pm TECHNIQUE: CT of the cervical was performed with the administration of intravenous contrast. Multiplanar reformatted images are provided for review. Automated exposure control, iterative reconstruction, and/or weight based adjustment of the mA/kV was utilized to reduce the radiation dose to as low as reasonably achievable. COMPARISON: CT angiogram head and neck 06/28/2021 HISTORY: ORDERING SYSTEM PROVIDED HISTORY: look for osteomyelitis in cervical spine TECHNOLOGIST PROVIDED HISTORY: look for osteomyelitis in cervical spine Reason for Exam: look for osteomyelitis in cervical spine FINDINGS: BONES/ALIGNMENT: There is normal alignment of the spine. The vertebral body heights are maintained. There are subchondral cystic changes identified C1-C2 which could be degenerative. There is question subtle areas of erosion involving the occipital condyles bilaterally extending to the C1 lateral masses.. Similarly, there are areas of and inferior endplate erosions identified involving the tip of the clivus. Endplate degenerate changes C6-C7 as well. DEGENERATIVE CHANGES: Mild canal encroachment identified at C2 the craniocervical junction due to moderate change. Multilevel degenerate changes cervical spine notably C6-C7.. SOFT TISSUES: There is no prevertebral soft tissue swelling. Erosive changes identified at the craniocervical junction other may related to nonspecific inflammatory arthropathy/rheumatoid arthritis, given the degree of erosions involving the clivus and both lateral mass identified both condyles, infection/underlying possibility of underlying osteomyelitis should be considered in the appropriate clinical setting. MRI could be beneficial for more definitive characterization. The findings were sent to the Radiology Results Communication Center at 10:31 pm on 06/29/2021 to be communicated to a licensed caregiver. CTA HEAD NECK W CONTRAST Result Date: 06/28/2021 EXAMINATION: CTA OF THE HEAD AND NECK WITH CONTRAST 06/28/2021 12:15 pm: TECHNIQUE: CTA of the head and neck was performed with the administration of intravenous contrast. Multiplanar reformatted images are provided for review. MIP images are provided for review. Stenosis of the internal carotid arteries measured using NASCET criteria. Automated exposure control, iterative reconstruction, and/or weight based adjustment of the mA/kV was utilized to reduce the radiation dose to as low as reasonably achievable. COMPARISON: None. HISTORY: ORDERING SYSTEM PROVIDED HISTORY: AMS TECHNOLOGIST PROVIDED HISTORY: AMS Decision Support Exception - unselect if not a suspected or confirmed emergency medical condition->Emergency Medical Condition (MA) Reason for Exam: ams FINDINGS: CTA NECK: AORTIC ARCH/ARCH VESSELS: No dissection or arterial injury. No significant stenosis of the brachiocephalic or subclavian arteries. CAROTID ARTERIES: No dissection, arterial injury, or hemodynamically significant stenosis by NASCET criteria. VERTEBRAL ARTERIES: No dissection, arterial injury, or significant stenosis. SOFT TISSUES: The lung apices are clear. No cervical or superior mediastinal lymphadenopathy. The larynx and pharynx are unremarkable. No acute abnormality of the salivary and thyroid glands. BONES: No acute osseous abnormality. CTA HEAD: ANTERIOR CIRCULATION: No significant stenosis of the intracranial internal carotid, anterior cerebral, or middle cerebral arteries. No aneurysm. POSTERIOR CIRCULATION: No significant stenosis of the vertebral, basilar, or posterior cerebral arteries. No aneurysm. OTHER: No dural venous sinus thrombosis on this non-dedicated study. BRAIN: No mass effect or midline shift. No extra-axial fluid collection. The shah-white differentiation is maintained. Unremarkable CTA of the head and neck. Assessment and Plan This is a 56 y.o. 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 She was found wandering outside her 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. MSSA sepsis - on Abx per primary. ID on board. Intractable headache - Will continue on depacon 250 q8. Restart zanaflex. Unable to obtain MRI due to unknown foreign object in eye. Episodic confusion with normal routine MRI. Upper GI bleed with coffee ground emesis- EGD today Hypokalemia - replace per primary Further recommendations may follow after discussing with attending physician. Thank you for allowing us to participate in the care of this patient. Kenya Liu MD Neurology PGY-3 07/02/2021 8:22 AM Associated attestation - Pawan Dutton DO - 07/02/2021 3:47 PM EDT Attending Physician Statement: I have discussed the case of Meg Georges, including pertinent history and exam findings with the resident. I have seen and examined the patient and the coffey elements of the encounter have been performed by me. I have reviewed medications, clinical laboratory, imaging and other diagnostic tests with the residents. I agree with the assessment, plan and orders as documented by the resident with changes made to the note as needed. Transient confusion with underlying MSSA bacteremia, sepsis. Consistent with acute metabolic encephalopathy. Left frontal, occipital headache and neck pain. TTP left paraspinal cervical musculature. We will add tizanidine to help with muscle spasm. GI undergoing GI bleed work-up. Plan for EGD today. CSF studies negative for SOAP MAKER infection. Will continue to follow. Pawan Dutton DO 07/02/2021 3:45 PM Images from the original note were not included. [facility] Internal Medicine Teaching Residency Program Inpatient Daily Progress Note __ Patient: Meg Georges Date of : 1965 Acct: [id number] Room: 0146/0146-01 Admit date: 06/28/2021 Today's date: 07/02/21 Number of days in the hospital: 4 SUBJECTIVE Admitting Diagnosis: Sepsis (HCC) CC: altered mentation Pt examined at bedside. Chart & results reviewed. BP 114/58, pulse 66, afebrile. Complains of headache, improved on depacon. Neurology managing ENT consulted for hoarse voice found left vocal cord paralysis of unknown cause. Needs formal speech/swallow eval 07/01/2021 positive. On Nafcillin BP 161/67, alert and oriented on room air Hypokalemia 2.9 following 100 meq yesterday. replace and monitor. wbc 16, Hb 9.0, plt 284 For EGD this morning ROS: Constitutional: negative for chills, fevers, sweats Respiratory: negative for cough, dyspnea on exertion, hemoptysis, shortness of breath, wheezing Cardiovascular: negative for chest pain, chest pressure/discomfort, lower extremity edema, palpitations Gastrointestinal: negative for abdominal pain, constipation, diarrhea, nausea, vomiting Neurological: negative for dizziness, headache BRIEF HISTORY The patient is a pleasant 56 y.o. female presents with a chief complaint of altered mentation. 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 Presented to ED from 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, found confused outside. Imaging negative. She complains of headache 11/26, not sure how she got to ED. Denies fever, vomiting, chest kristan, cough, SOB, abdominal pain. States last BM yesterday soft. Patient somnolent but arousable, follows command, hypertensive BP as high as 202/105, HR 110, on room air. Significant labs include glycemia 254, wbc 22. Lumbar tap done. Not concerning for acute meningitis. OBJECTIVE Vital Signs: BP (!) 114/58 Pulse 66 Temp 97.8 F (36.6 C) Resp 25 Ht 5' 5 (1.651 m) Wt 145 lb (65.8 kg) LMP 12/02/2011 SpO2 99% BMI 24.13 kg/m Temp (24hrs), Av.8 F (36.6 C), Min:97.6 F (36.4 C), Max:98 F (36.7 C) In: 939.4 Out: 400 [Urine:400] Physical Exam: Constitutional: This is a well developed, well nourished, 18.5-24.9 - Normal 56 y.o. year old female who is alert, oriented, cooperative. Head:normocephalic and atraumatic. EENT: PERRLA. No conjunctival injections. Septum was midline, mucosa was without erythema, exudates or cobblestoning. No thrush was noted. Neck: Supple without thyromegaly. No palpable lymphadenopathy. Generalized tenderness anterior neck. No elevated JVP. Trachea was midline. Respiratory: Chest was symmetrical without dullness to percussion. Breath sounds bilaterally were clear to auscultation. There were no wheezes, rhonchi or rales. There is no intercostal retraction or use of accessory muscles. No egophony noted. Cardiovascular: Regular without murmur, clicks, gallops or rubs. Abdomen: Slightly rounded and soft without organomegaly. No rebound, rigidity or guarding was appreciated. Lymphatic: No lymphadenopathy. Musculoskeletal: Normal curvature of the spine. No gross muscle weakness. Extremities: No lower extremity edema, ulcerations, tenderness, varicosities or erythema. Muscle size, tone and strength are normal. No involuntary movements are noted. Skin: Ulcer present on left foot. Loss of sensation Neurological/Psychiatric: Patient alert and oriented x 3, memory intact, concentration preserved. Moves all extremities.decreased sensation in socks glove pattern Medications: Scheduled Medications: potassium bicarb-citric acid 40 mEq Oral Once valproate sodium (DEPACON) IVPB 250 mg IntraVENous Q8H [Held by provider] lisinopril 20 mg Oral Daily levothyroxine 100 mcg Oral Daily insulin glargine 16 Units SubCUTAneous Daily aspirin 81 mg Oral Daily nafcillin 2,000 mg IntraVENous Q4H carvedilol 25 mg Oral BID WC sodium chloride flush 5-40 mL IntraVENous 2 times per day [Held by provider] enoxaparin 40 mg SubCUTAneous Daily latanoprost 1 drop Both Eyes Nightly insulin lispro 0-12 Units SubCUTAneous TID WC insulin lispro 0-6 Units SubCUTAneous Nightly Continuous Infusions: pantoprazole 8 mg/hr (07/02/21 0208) sodium chloride 100 mL/hr at 07/01/21 0600 sodium chloride dextrose PRN Ejrfreszxwpqrfxswbqjn-eveezbquwlpaj-ts ffeine, 1 tablet, Q4H PRN hydrALAZINE, 10 mg, Q4H PRN sodium chloride flush, 5-40 mL, PRN sodium chloride, , PRN ondansetron, 4 mg, Q8H PRN Or ondansetron, 4 mg, Q6H PRN acetaminophen, 650 mg, Q6H PRN Or acetaminophen, 650 mg, Q6H PRN bisacodyl, 5 mg, Daily PRN sodium chloride flush, 5-40 mL, PRN labetalol, 10 mg, Q4H PRN glucose, 4 tablet, PRN dextrose bolus, 125 mL, PRN Or dextrose bolus, 250 mL, PRN glucagon (rDNA), 1 mg, PRN dextrose, 100 mL/hr, PRN Diagnostic Labs: CBC: Recent Labs 07/01/21 0631 07/01/21 0631 07/01/21 1558 07/01/21204707/02/21418 WBC 12.6* -- -- -- 16.7* RBC 3.43* -- -- -- 3.47* HGB 9.0* < > 8.6* 8.8* 9.0* HCT 28.4* < > 26.7* 27.2* 28.2* MCV 82.8 -- -- -- 81.3* RDW 16.2* -- -- -- 16.3* PLT 284 -- -- -- 299 < > = values in this interval not displayed. BMP: Recent Labs 07/01/21 0631 07/01/21 0631 07/01/21 0845 07/01/[id number]/02/21418 NA 137 -- -- -- 134* K 2.2* < > 2.4* 2.5* 2.9* CL 102 -- -- -- 98 CO2 25 -- -- -- 25 BUN 18 -- -- -- 9 CREATININE 0.97* -- -- -- 0.66 < > = values in this interval not displayed. BNP: No results for input(s): BNP in the last 72 hours. PT/INR: No results for input(s): PROTIME, INR in the last 72 hours. APTT: No results for input(s): APTT in the last 72 hours. CARDIAC ENZYMES: No results for input(s): CKMB, CKMBINDEX, TROPONINI in the last 72 hours. Invalid input(s): CKTOTAL;3 FASTING LIPID PANEL: Lab Results Component Value Date CHOL 155 06/28/2021 HDL 71 06/28/2021 TRIG 105 06/28/2021 LIVER PROFILE: No results for input(s): AST, ALT, ALB, BILIDIR, BILITOT, ALKPHOS in the last 72 hours. MICROBIOLOGY: Lab Results Component Value Date/Time CULTURE POSITIVE Blood Culture (A) 07/01/2021 06:31 AM CULTURE 07/01/2021 06:31 AM DIRECT GRAM STAIN FROM BOTTLE: GRAM POSITIVE COCCI IN CLUSTERS CULTURE 07/01/2021 06:31 AM (NOTE) Direct Gram Stain from bottle result called to and read back by: VIRGIE Noland at 2200 on 07.01.2021 Imaging: CT Head WO Contrast Result Date: 06/28/2021 1. Poorly diagnostic examination due to patient motion. 2. No gross evidence of hemorrhage or mass effect. A telephone call regarding the findings in examination and limitations the study was made to and acknowledged by Dr. Boothe in the emergency department at 4:55 AM on 06/28/2021. CT ABDOMEN PELVIS W IV CONTRAST Additional Contrast? None Result Date: 06/28/2021 1. No evidence of bowel obstruction. 2. Normal appendix. 3. Status post cholecystectomy. XR CHEST PORTABLE Result Date: 06/28/2021 No acute abnormality. CTA HEAD NECK W CONTRAST Result Date: 06/28/2021 Unremarkable CTA of the head and neck. ASSESSMENT & PLAN Sepsis with MSSA bacteremia; source unknown: -continu Nafcillin 2 g q 4 h. Stop date 07-29-21 per ID - repeat blood cx until negative -echo completed read pending - Erosive changes at craniocervical junction which may be related to arthritis or osteomyelitis by CT cervical spine 06-29-21 -left foot ulceration; Podiatry consulted for concern for osteomyelitis and possible source of MSSA bacteremia -XR left foot negative for osteomyelitis - CT chest showed right upper lobe pulmonary nodule -resp viral panel negative Upper GI bleed: -EGD on Friday -H&H q8 -ok for full liquid diet as per GI -avoid NSAIDs, anticoagulation -PPI gtt ongoing Hypothyroidism: -TSH low. - levothyroxine dose decreased from 112 mcg to 100 mcg daily Diabetes Mellitus type II: -medium dose ISS -hypoglycemia protocol - glucose checks q4 Essential hypertension: -scheduled metoprolol IV 5 mg BID -Prn Labetalol 10mg every 6hrs if SBP >160. -PRN hydralazine 10 mg q8 - lisinopril increased to 20 mg daily, patient currently unable to take PO coreg and lisinopril due to N&V Elevated troponins: Downtrending likely type II AL -echo result pending Hypokalemia: K+ 2.2 today. Replace PO and IV and monitor Left Vocal cord paralysis: Ongoing x 1 month. ENT on board. Plan for injection laryngoplasty for voice/swallowing improvement at some point. Needs formal speech therapy/swallow study assessment as she is likely aspirating liquids Rufus Argueta MD Internal Medicine Resident, PGY- 1 [facility]; [place], [place] 07/02/2021, 7:16 AM Associated attestation - Silver Carmona MD - 07/02/2021 12:02 PM EDT Images from the original note were not included. Attending Physician Statement I have discussed the case, including pertinent history and exam findings with the resident and the team. I have seen and examined the patient and the coffey elements of the encounter have been performed by me. I agree with the assessment, plan and orders as documented by the resident. Review of Systems: In addition to the pertinent positives and negatives as stated within HPI and the review of systems as documented in their notes, all other systems were reviewed when able to and are reported negative. Patient is hemodynamically stable, plan for EGD today Replace potassium ENT recommends MRI of the brain and spinal cord, this will be ordered, follow neurology recommendations Continue nafcillin, get repeat blood cultures, ID following Silver Carmona MD Attending Physician, Internal Medicine Service Internal Medicine Residency Program 07/02/2021, 12:02 PM Attending Physician Statement I have discussed the case of Meg Georges including pertinent history and exam findings with the resident/ LAND SURVEYING MANAGER. I have seen and examined the patient and the coffey elements of the encounter have been performed by me. I agree with the assessment, plan and orders as documented by the resident or LAND SURVEYING MANAGER with changes made to the note. Briefly, this is a 56 y.o. 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 Her history is significant for CIDP for which she has been on 2 weekly IVIG infusion through [facility] neurology clinic. Vitals on admit: 167/68, 102/min, 98.[address] head on admit was negative for acute intracranial abnormalities. CTA head and neck with no large vessel occlusion. CT chest showed 7 mm groundglass nodule in posterior right upper lobe. No consolidation or acute inflammatory process otherwise appreciated. Indeterminate exophytic left renal lesions. EEG demonstrated normal awake and asleep EEG. Spinal tap with normal WBC and protein making meningoencephalitis unlikely. Procalcitonin elevated at 0.66 CRP elevated at 109.1 Patient stated that headache has been improving. She has not been able to swallow due to ongoing nausea and vomiting. She has been NPO b/o coffee-ground emesis. Medicine team requested GI consult and patient was initiated on Protonix drip. On schedule for EGD. No current facility-administered medications on file prior to encounter. Current Outpatient Medications on File Prior to Encounter Medication Sig Dispense Refill insulin glargine (LANTUS) 100 UNIT/ML injection vial Inject 16 Units into the skin nightly brimonidine (ALPHAGAN P) 0.15 % ophthalmic solution Apply 1 drop to eye 2 times daily Left eye carvedilol (COREG) 25 MG tablet Take 25 mg by mouth 2 times daily (with meals) HYDROcodone-acetaminophen (NORCO) 5-325 MG per tablet Take 1 tablet by mouth every 4 hours as needed for Pain. insulin lispro (HUMALOG KWIKPEN) 100 UNIT/ML pen Inject 30 Units into the skin 3 times daily (before meals) Sliding scale coverage- Use less than 30 units with sliding scale aspirin 325 MG tablet Take 325 mg by mouth daily latanoprost (XALATAN) 0.005 % ophthalmic solution Place 1 drop into both eyes nightly lisinopril (PRINIVIL;ZESTRIL) 10 MG tablet Take 10 mg by mouth daily tiZANidine (ZANAFLEX) 4 MG tablet Take 4 mg by mouth as needed dorzolamide-timolol (COSOPT) 22.3-6.8 MG/ML ophthalmic solution Place 1 drop into the right eye 2 times daily Multiple Vitamins-Minerals (MULTIVITAMIN ADULT PO) Take 1 tablet by mouth daily levothyroxine (SYNTHROID) 112 MCG tablet Take 112 mcg by mouth Daily Allergies: Meg Georges is allergic to moxifloxacin, peg 3350-electrolytes, tapentadol, avelox [moxifloxacin hydrochloride], and cephalexin. Past Medical History: Diagnosis Date Asthma Cardiac murmur Diabetes mellitus (HCC) GERD (gastroesophageal reflux disease) Hyperlipidemia Hypertension Neuropathy Radiculopathy Spinal stenosis Thyroid disease Past Surgical History: Procedure Laterality Date ACHILLES TENDON SURGERY left BACK SURGERY L 4 and 5 1995, 1996 CHOLECYSTECTOMY SHOULDER SURGERY right Medications: potassium chloride 10 mEq IntraVENous Q1H magnesium sulfate 2,000 mg IntraVENous Once valproate sodium (DEPACON) IVPB 500 mg IntraVENous Once [Held by provider] lisinopril 20 mg Oral Daily levothyroxine 100 mcg Oral Daily insulin glargine 16 Units SubCUTAneous Daily aspirin 81 mg Oral Daily nafcillin 2,000 mg IntraVENous Q4H carvedilol 25 mg Oral BID WC sodium chloride flush 5-40 mL IntraVENous 2 times per day [Held by provider] enoxaparin 40 mg SubCUTAneous Daily latanoprost 1 drop Both Eyes Nightly insulin lispro 0-12 Units SubCUTAneous TID WC insulin lispro 0-6 Units SubCUTAneous Nightly PRN Meds include: eydqmnqhqz-zbsqqltosprwz-qteeduca, hydrALAZINE, sodium chloride flush, sodium chloride, ondansetron OR ondansetron, acetaminophen OR acetaminophen, bisacodyl, sodium chloride flush, labetalol, glucose, dextrose bolus OR dextrose bolus, glucagon (rDNA), dextrose Objective: BP (!) 161/67 Pulse 70 Temp 97.4 F (36.3 C) (Oral) Resp 17 Ht 5' 5 (1.651 m) Wt 145 lb (65.8 kg) LMP 12/02/2011 SpO2 96% BMI 24.13 kg/m Blood pressure range: Systolic (24hrs), Av , Min:145 , Max:164 ; Diastolic (24hrs), Av, Min:65, Max:71 On exam; alert and awake and oriented to person and place but not to the month and year. She was able to follow simple commands. She has difficulty with naming and repetition. She was able to follow simple commands. Difficulty with immediate recall. Pupils are bilaterally reactive. Blinks to threat bilaterally. She moves bilateral upper extremities with 5/5 MRC and she has significant weakness in bilateral lower extremities at 4+/5 MRC proximally and 4 -/5 distally with diminished light touch and pinprick in distal lower extremities with symmetric 2+ DTRs in upper extremities and hypoactive patellar jerks and absent ankle jerks with equivocal plantar responses bilaterally. Data: Lab Results: CBC: Recent Labs 06/29/21 03506/29/21 03506/30/21 0909 06/30/219 07/01/21 0631 WBC 15.0* -- -- -- 12.6* HGB 9.9* < > 9.8* 9.4* 9.0* PLT 380 -- -- -- 284 < > = values in this interval not displayed. BMP: Recent Labs 06/29/2135007/01/21 0631 07/01/21 0845 NA 137 137 -- K 3.2* 2.2* 2.4* CL 97* 102 -- CO2 25 25 -- BUN 18 18 -- CREATININE 0.76 0.97* -- GLUCOSE 221* 117* -- Lab Results Component Value Date CHOL 155 06/28/2021 LDLCHOLESTEROL 63 06/28/2021 HDL 71 06/28/2021 TRIG 105 06/28/2021 ALT 19 06/28/2021 AST 19 06/28/2021 TSH 0.15 (L) 06/28/2021 INR 1.2 06/28/2021 LABA1C 9.4 (H) 06/28/2021 LABMICR 7 06/25/2013 [id number] 06/28/2016 Impression and Plan: Ms. Meg Georges is a 56 y.o. female with Intractable headache with comorbid sepsis: to start 500 mg IV Depacon followed by 250 every 8 hours Metabolic encephalopathy with MSSA staph bacteremia; Procalcitonin elevated at 0.66; CRP elevated at 109.1., With abnormal CT cervical spine demonstrating possible osteomyelitis; evaluated by ID; on nafcillin 2 gr with stop date 07/29/21. Upper GI bleed: with coffee-ground emesis and hoarseness with few day hx of nausea/vomiting: GI consulted; on Protonix drip; on schedule for possible EGD tomorrow. Uncontrolled hypertension, uncontrolled diabetes, hypothyroidism, elevated troponin, left foot ulcer Episode of confusion is secondary to metabolic encephalopathy; no evidence of seizure activity; normal EEG; no evidence of stroke/bleed with normal CT head; no evidence of meningitis or encephalitis with unremarkable spinal tap. Uncontrolled hypertension: on coreg and lisinopril Headaches likely sec to above; improving; to continue iv toradol prn. Known diagnosis of CIDP; has been on IVIG infusion every 2 weeks; following up at [facility]. Care plan is discussed with the patient and her nurse at bedside. Will follow with you. Jenifer Jewell MD 07/01/2021 2:01 PM [facility] Neurology IN-PATIENT SERVICE [facility] Progress note Date: 07/01/2021 Patient name: Meg Georges Date of admission: 06/28/2021 11:59 AM Account: [id number] Date of : 1965 PCP: Neri Santa Sr, DO Room: [address] [place] [address] Code Status: Full Code Chief Complaint: Chief Complaint Patient presents with Altered Mental Status Interval hx: The Patient was seen and examined at bedside Is vitally stable alert oriented x3 No acute events overnight Patient resting in bed comfortable this AM only complaint is persistent left frontal headache 6/10. No response to Fioricet PRN will give IV mag 2 grams also receiving IV potassium given level of 2.2 this AM. Will give IV depacon 500mg this AM and continue depacon 250mg Q8 this evening Remains on ancef for MSSA pneumonia. Brief History of Present Illness: The patient is a 56 y.o. female who presents with Altered Mental Status and she is admitted to the hospital for the management of MSSA pneumonia. PMH significant for known diagnosis of CIDP on IVIG every 2 weeks establish through [facility] neurology, neuropathy secondary to uncontrolled type 2 diabetes, hypertension, hyperlipidemia, spinal stenosis with radiculopathy at baseline. Patient admitted under internal medicine for medical management of aspiration pneumonia started on Ancef. Neurology following for history of CIDP appears well controlled at baseline. Patient being followed by neurology for persistent acute left frontal headache Lipid panel 5/12/22 Total cholesterol 155, LDL 63 [id number] this admission CSF studies 06/28/21 Oligoclonal banding negative Meningitis encephalitis panel negative Albumin index elevated 27, WBC 2, RBC1, Protein 20.7, glucose 143, Culture no growth X3 days CT head WO 06/28/21 Impression 1. Poorly diagnostic examination due to patient motion. 2. No gross evidence of hemorrhage or mass effect. CTA head and neck 06/28/21 Impression Unremarkable CTA of the head and neck. CT cervical Spine 06/29/21 Impression Erosive changes identified at the craniocervical junction other may related to nonspecific inflammatory arthropathy/rheumatoid arthritis, given the degree of erosions involving the clivus and both lateral mass identified both condyles, infection/underlying possibility of underlying osteomyelitis should be considered in the appropriate clinical setting. Past Medical History: Past Medical History: Diagnosis Date Asthma Cardiac murmur Diabetes mellitus (HCC) GERD (gastroesophageal reflux disease) Hyperlipidemia Hypertension Neuropathy Radiculopathy Spinal stenosis Thyroid disease Past Surgical History: Past Surgical History: Procedure Laterality Date ACHILLES TENDON SURGERY left BACK SURGERY L 4 and 5 1995, 1996 CHOLECYSTECTOMY SHOULDER SURGERY right Medications Prior to Admission: Prior to Admission medications Medication Sig Start Date End Date Taking? Authorizing Provider insulin glargine (LANTUS) 100 UNIT/ML injection vial Inject 16 Units into the skin nightly Yes Historical Provider, brimonidine (ALPHAGAN P) 0.15 % ophthalmic solution Apply 1 drop to eye 2 times daily Left eye 11/15/19 Yes Historical Provider, carvedilol (COREG) 25 MG tablet Take 25 mg by mouth 2 times daily (with meals) Yes Historical Provider, HYDROcodone-acetaminophen (NORCO) 5-325 MG per tablet Take 1 tablet by mouth every 4 hours as needed for Pain. Yes Historical Provider, insulin lispro (HUMALOG KWIKPEN) 100 UNIT/ML pen Inject 30 Units into the skin 3 times daily (before meals) Sliding scale coverage- Use less than 30 units with sliding scale Yes Historical Provider, aspirin 325 MG tablet Take 325 mg by mouth daily 04/07/17 Yes Historical Provider, latanoprost (XALATAN) 0.005 % ophthalmic solution Place 1 drop into both eyes nightly 03/05/17 Yes Historical Provider, lisinopril (PRINIVIL;ZESTRIL) 10 MG tablet Take 10 mg by mouth daily Yes Historical Provider, tiZANidine (ZANAFLEX) 4 MG tablet Take 4 mg by mouth as needed Yes Historical Provider, dorzolamide-timolol (COSOPT) 22.3-6.8 MG/ML ophthalmic solution Place 1 drop into the right eye 2 times daily 08/08/17 Yes Historical Provider, Multiple Vitamins-Minerals (MULTIVITAMIN ADULT PO) Take 1 tablet by mouth daily Yes Historical Provider, levothyroxine (SYNTHROID) 112 MCG tablet Take 112 mcg by mouth Daily Yes Historical Provider, Allergies: Moxifloxacin, Peg 3350-electrolytes, Tapentadol, Avelox [moxifloxacin hydrochloride], and Cephalexin Social History: Tobacco: reports that she quit smoking about 25 years ago. Her smoking use included cigarettes. She quit after 20.00 years of use. She has never used smokeless tobacco. Alcohol: reports no history of alcohol use. Drug Use: reports no history of drug use. Family History: Family History Problem Relation Age of Onset Diabetes Mother Cancer Father Review of Systems: ROS: Constitutional Negative for fever and chills HEENT Negative for ear discharge, ear pain, nosebleed Eyes Negative for photophobia, pain and discharge Respiratory Negative for hemoptysis and sputum Cardiovascular Negative for orthopnea, claudication and PND Gastrointestinal Negative for abdominal pain, diarrhea, blood in stool Musculoskeletal Negative for joint pain, negative for myalgia Neurology Negative for seizures, loss of consciousness Skin Negative for rash or itching Endo/heme/allergies Negative for polydipsia, environmental allergy Psychiatric/behavioral Negative for suicidal ideation. Patient is not anxious Physical Exam: BP (!) 161/67 Pulse 70 Temp 97.4 F (36.3 C) (Oral) Resp 17 Ht 5' 5 (1.651 m) Wt 145 lb (65.8 kg) LMP 12/02/2011 SpO2 96% BMI 24.13 kg/m Temp (24hrs), Av F (36.7 C), Min:97.4 F (36.3 C), Max:98.4 F (36.9 C) Recent Labs 06/30/21 1330 06/30/21 1616 06/30/21 2116 07/01/21 0835 POCGLU 171* 182* 173* 115* Intake/Output Summary (Last 24 hours) at 07/01/2021 1107 Last data filed at 07/01/2021 0700 Gross per 24 hour Intake 1675.09 ml Output 503 ml Net 1172.09 ml NEUROLOGIC EXAMINATION GENERAL Appears comfortable and in no distress HEENT NC/ AT NECK Supple and no bruits heard MENTAL STATUS: Alert, oriented, intact memory, no confusion, normal speech, normal language, no hallucination or delusion CRANIAL NERVES: II - Visual bobo intact to confrontation III,IV, - EOMs full, no afferent defect, no JOHANNE, no ptosis V - Normal facial sensation VII - Normal facial symmetry VIII - Intact hearing IX,X - Symmetrical palate XI - Symmetrical shoulder shrug XII - Midline tongue, no atrophy MOTOR FUNCTION: significant for good strength of grade 5/5 in bilateral proximal and distal muscle groups of both upper and lower extremities with normal bulk, normal tone and no involuntary movements, no tremor SENSORY FUNCTION: Normal touch, normal pin, normal vibration, normal proprioception CEREBELLAR FUNCTION: Intact fine motor control over upper limbs REFLEX FUNCTION: Symmetric, no perverted reflex, no Babinski sign STATION and GAIT Not tested Investigations: Laboratory Testing: Recent Results (from the past 24 hour(s)) POC Glucose Fingerstick Collection Time: 06/30/21 1:30 PM Result Value Ref Range POC Glucose 171 (H) 65 - 105 mg/dL POC Glucose Fingerstick Collection Time: 06/30/21 4:16 PM Result Value Ref Range POC Glucose 182 (H) 65 - 105 mg/dL POC Glucose Fingerstick Collection Time: 06/30/21 9:16 PM Result Value Ref Range POC Glucose 173 (H) 65 - 105 mg/dL Hemoglobin and Hematocrit Collection Time: 06/30/21 9:29 PM Result Value Ref Range Hemoglobin 9.4 (L) 11.9 - 15.1 g/dL Hematocrit 29.3 (L) 36.3 - 47.1 % C-Reactive Protein Collection Time: 07/01/21 6:31 AM Result Value Ref Range CRP 38.5 (H) 0.0 - 5.0 mg/L Basic Metabolic Panel w/ Reflex to MG Collection Time: 07/01/21 6:31 AM Result Value Ref Range Glucose 117 (H) 70 - 99 mg/dL BUN 18 6 - 20 mg/dL CREATININE 0.97 (H) 0.50 - 0.90 mg/dL Calcium 8.2 (L) 8.6 - 10.4 mg/dL Sodium 137 135 - 144 mmol/L Potassium 2.2 (LL) 3.7 - 5.3 mmol/L Chloride 102 98 - 107 mmol/L CO2 25 20 - 31 mmol/L Anion Gap 10 9 - 17 mmol/L GFR Non- 59 (L) >60 mL/min GFR >60 >60 mL/min GFR Comment CBC with Auto Differential Collection Time: 07/01/21 6:31 AM Result Value Ref Range WBC 12.6 (H) 3.5 - 11.3 k/uL RBC 3.43 (L) 3.95 - 5.11 m/uL Hemoglobin 9.0 (L) 11.9 - 15.1 g/dL Hematocrit 28.4 (L) 36.3 - 47.1 % MCV 82.8 82.6 - 102.9 fL MCH 26.2 25.2 - 33.5 pg MCHC 31.7 28.4 - 34.8 g/dL RDW 16.2 (H) 11.8 - 14.4 % Platelets 284 138 - 453 k/uL MPV 8.8 8.1 - 13.5 fL NRBC Automated 0.0 0.0 per 100 WBC Immature Granulocytes 0 0 % Seg Neutrophils 77 (H) 36 - 66 % Lymphocytes 17 (L) 24 - 44 % Monocytes 6 1 - 7 % Eosinophils % 0 (L) 1 - 4 % Basophils 0 0 - 2 % Absolute Immature Granulocyte 0.00 0.00 - 0.30 k/uL Segs Absolute 9.70 (H) 1.8 - 7.7 k/uL Absolute Lymph # 2.14 1.0 - 4.8 k/uL Absolute [place] # 0.76 0.1 - 0.8 k/uL Absolute Eos # 0.00 0.0 - 0.4 k/uL Basophils Absolute 0.00 0.0 - 0.2 k/uL Morphology ANISOCYTOSIS PRESENT Culture, Blood 1 Collection Time: 07/01/21 6:31 AM Specimen: Blood Result Value Ref Range Specimen Description .BLOOD Culture NO GROWTH <24 HRS Magnesium Collection Time: 07/01/21 6:31 AM Result Value Ref Range Magnesium 2.0 1.6 - 2.6 mg/dL POC Glucose Fingerstick Collection Time: 07/01/21 8:35 AM Result Value Ref Range POC Glucose 115 (H) 65 - 105 mg/dL Potassium Collection Time: 07/01/21 8:45 AM Result Value Ref Range Potassium 2.4 (LL) 3.7 - 5.3 mmol/L Magnesium Collection Time: 07/01/21 8:45 AM Result Value Ref Range Magnesium 1.9 1.6 - 2.6 mg/dL Assessment : Primary Problem Sepsis ([facility]) Active Hospital Problems Diagnosis Date Noted Acute metabolic encephalopathy [G93.41] 06/30/2021 Priority: Medium MSSA (methicillin susceptible Staphylococcus aureus) septicemia ([facility]) [A41.01] 06/30/2021 Priority: Medium Upper GI bleed [K92.2] Priority: Medium Non-intractable vomiting [R11.10] Priority: Medium Unintentional weight loss [R63.4] Priority: Medium Sepsis ([facility]) [A41.9] 06/29/2021 Priority: Medium Bacteremia [R78.81] 06/29/2021 Priority: Medium Hypothyroidism [E03.9] 06/29/2021 Priority: Medium Hypokalemia [E87.6] 06/29/2021 Priority: Medium Type 2 diabetes mellitus with diabetic polyneuropathy ([facility]) [E11.42] 06/29/2021 Priority: Medium Primary hypertension [I10] 06/29/2021 Priority: Medium Encephalopathy [G93.40] Priority: Medium CIDP (chronic inflammatory demyelinating polyneuropathy) ([facility]) [G61.81] Priority: Medium Altered mental state [R41.82] 06/28/2021 Priority: Medium Encephalitis [G04.90] Priority: Medium Plan: Headache -2 grams IV mag total -Depacon 500mg IV once for headache -can continue depacon 250mg Q8hr if initial bolus improves her headache 07/27 this AM History of CIDP -Recieves IVIG every two weeks following [facility] neurology -stable can continue her routine management Acute metabolic encephalopathy -has MSSA pneumonia sepsis on ancef -CT cervical spine demonstrating erosive lesions cannot rule out osteomyelitis -FU MRI Cervical spine -Infectious disease following MSSA Septicemia pneumonia on ancef -routine EEG Completed 06/29/21-->normal awake and asleep EEG non epileptiform Rest of medical management per primary IM team currently treating MSSA pneumonia, hypokalemia and sepsis. PT/OT/ST PM&R evaluation Follow-up further recommendations after discussing the case with attending The plan was discussed with the patient, patient's family and the medical staff. Consultations: IP CONSULT TO NEUROLOGY IP CONSULT TO INTERNAL MEDICINE PHARMACY TO DOSE VANCOMYCIN IP CONSULT TO INFECTIOUS DISEASES IP CONSULT TO GI IP CONSULT TO PODIATRY Patient is admitted as inpatient status because of co-morbidities listed above, severity of signs and symptoms as outlined, requirement for current medical therapies and most importantly because of direct risk to patient if care not provided in a hospital setting. Jeovany Weldon MD 07/01/2021 11:07 AM Copy sent to Dr. Neri Santa, Sr, DO Associated attestation - Jenifer Jewell MD - 07/02/2021 12:09 PM EDT Patient is seen on 07/01/21 Attending Physician Statement I have discussed the case of Meg Georges including pertinent history and exam findings with the resident/ LAND SURVEYING MANAGER. I have seen and examined the patient and the coffey elements of the encounter have been performed by me. I agree with the assessment, plan and orders as documented by the resident or LAND SURVEYING MANAGER with changes made to the note. Briefly, this is a 56 y.o. 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 Her history is significant for CIDP for which she has been on 2 weekly IVIG infusion through [facility] neurology clinic. Vitals on admit: 167/68, 102/min, 98.[address] head on admit was negative for acute intracranial abnormalities. CTA head and neck with no large vessel occlusion. CT chest showed 7 mm groundglass nodule in posterior right upper lobe. No consolidation or acute inflammatory process otherwise appreciated. Indeterminate exophytic left renal lesions. EEG demonstrated normal awake and asleep EEG. Spinal tap with normal WBC and protein making meningoencephalitis unlikely. Procalcitonin elevated at 0.66 CRP elevated at 109.1 Patient stated that headache has been improving. She has not been able to swallow due to ongoing nausea and vomiting. She has been NPO b/o coffee-ground emesis. Medicine team requested GI consult and patient was initiated on Protonix drip. On schedule for EGD. No current facility-administered medications on file prior to encounter. Current Outpatient Medications on File Prior to Encounter Medication Sig Dispense Refill insulin glargine (LANTUS) 100 UNIT/ML injection vial Inject 16 Units into the skin nightly brimonidine (ALPHAGAN P) 0.15 % ophthalmic solution Apply 1 drop to eye 2 times daily Left eye carvedilol (COREG) 25 MG tablet Take 25 mg by mouth 2 times daily (with meals) HYDROcodone-acetaminophen (NORCO) 5-325 MG per tablet Take 1 tablet by mouth every 4 hours as needed for Pain. insulin lispro (HUMALOG KWIKPEN) 100 UNIT/ML pen Inject 30 Units into the skin 3 times daily (before meals) Sliding scale coverage- Use less than 30 units with sliding scale aspirin 325 MG tablet Take 325 mg by mouth daily latanoprost (XALATAN) 0.005 % ophthalmic solution Place 1 drop into both eyes nightly lisinopril (PRINIVIL;ZESTRIL) 10 MG tablet Take 10 mg by mouth daily tiZANidine (ZANAFLEX) 4 MG tablet Take 4 mg by mouth as needed dorzolamide-timolol (COSOPT) 22.3-6.8 MG/ML ophthalmic solution Place 1 drop into the right eye 2 times daily Multiple Vitamins-Minerals (MULTIVITAMIN ADULT PO) Take 1 tablet by mouth daily levothyroxine (SYNTHROID) 112 MCG tablet Take 112 mcg by mouth Daily Allergies: Meg Georges is allergic to moxifloxacin, peg 3350-electrolytes, tapentadol, avelox [moxifloxacin hydrochloride], and cephalexin. Past Medical History Past Medical History: Diagnosis Date Asthma Cardiac murmur Diabetes mellitus (HCC) GERD (gastroesophageal reflux disease) Hyperlipidemia Hypertension Neuropathy Radiculopathy Spinal stenosis Thyroid disease Past Surgical History Past Surgical History: Procedure Laterality Date ACHILLES TENDON SURGERY left BACK SURGERY L 4 and 5 1995, 1996 CHOLECYSTECTOMY SHOULDER SURGERY right Medications: Scheduled Medications potassium chloride 10 mEq IntraVENous Q1H magnesium sulfate 2,000 mg IntraVENous Once valproate sodium (DEPACON) IVPB 500 mg IntraVENous Once [Held by provider] lisinopril 20 mg Oral Daily levothyroxine 100 mcg Oral Daily insulin glargine 16 Units SubCUTAneous Daily aspirin 81 mg Oral Daily nafcillin 2,000 mg IntraVENous Q4H carvedilol 25 mg Oral BID WC sodium chloride flush 5-40 mL IntraVENous 2 times per day [Held by provider] enoxaparin 40 mg SubCUTAneous Daily latanoprost 1 drop Both Eyes Nightly insulin lispro 0-12 Units SubCUTAneous TID WC insulin lispro 0-6 Units SubCUTAneous Nightly PRN Meds include: PRN Medications [id number]-zjifcgcxlkeki-ufqnogyq, hydrALAZINE, sodium chloride flush, sodium chloride, ondansetron OR ondansetron, acetaminophen OR acetaminophen, bisacodyl, sodium chloride flush, labetalol, glucose, dextrose bolus OR dextrose bolus, glucagon (rDNA), dextrose Objective: BP (!) 161/67 Pulse 70 Temp 97.4 F (36.3 C) (Oral) Resp 17 Ht 5' 5 (1.651 m) Wt 145 lb (65.8 kg) LMP 12/02/2011 SpO2 96% BMI 24.13 kg/m Blood pressure range: Systolic (24hrs), Av , Min:145 , Max:164 ; Diastolic (24hrs), Av, Min:65, Max:71 On exam; alert and awake and oriented to person and place but not to the month and year. She was able to follow simple commands. She has difficulty with naming and repetition. She was able to follow simple commands. Difficulty with immediate recall. Pupils are bilaterally reactive. Blinks to threat bilaterally. She moves bilateral upper extremities with 5/5 MRC and she has significant weakness in bilateral lower extremities at 4+/5 MRC proximally and 4 -/5 distally with diminished light touch and pinprick in distal lower extremities with symmetric 2+ DTRs in upper extremities and hypoactive patellar jerks and absent ankle jerks with equivocal plantar responses bilaterally. Data: Lab Results: CBC: Recent Labs 06/29/21 0351 06/29/21 0351 06/30/21 0909 06/30/219 07/01/21 0631 WBC 15.0* -- -- -- 12.6* HGB 9.9* < > 9.8* 9.4* 9.0* PLT 380 -- -- -- 284 < > = values in this interval not displayed. BMP: Recent Labs 06/29/21 0351 07/01/21 0631 07/01/21 0845 NA 137 137 -- K 3.2* 2.2* 2.4* CL 97* 102 -- CO2 25 25 -- BUN 18 18 -- CREATININE 0.76 0.97* -- GLUCOSE 221* 117* -- Lab Results Component Value Date CHOL 155 06/28/2021 LDLCHOLESTEROL 63 06/28/2021 HDL 71 06/28/2021 TRIG 105 06/28/2021 ALT 19 06/28/2021 AST 19 06/28/2021 TSH 0.15 (L) 06/28/2021 INR 1.2 06/28/2021 LABA1C 9.4 (H) 06/28/2021 LABMICR 7 06/25/2013 [id number] 06/28/2016 Impression and Plan: Ms. Meg Georges is a 56 y.o. female with Intractable headache with comorbid sepsis: to start 500 mg IV Depacon followed by 250 every 8 hours Metabolic encephalopathy with MSSA staph bacteremia; Procalcitonin elevated at 0.66; CRP elevated at 109.1., With abnormal CT cervical spine demonstrating possible osteomyelitis; evaluated by ID; on nafcillin 2 gr with stop date 07/29/21. Upper GI bleed: with coffee-ground emesis and hoarseness with few day hx of nausea/vomiting: GI consulted; on Protonix drip; on schedule for possible EGD tomorrow. Uncontrolled hypertension, uncontrolled diabetes, hypothyroidism, elevated troponin, left foot ulcer Episode of confusion is secondary to metabolic encephalopathy; no evidence of seizure activity; normal EEG; no evidence of stroke/bleed with normal CT head; no evidence of meningitis or encephalitis with unremarkable spinal tap. Uncontrolled hypertension: on coreg and lisinopril Headaches likely sec to above; improving; to continue iv toradol prn. Known diagnosis of CIDP; has been on IVIG infusion every 2 weeks; following up at [facility]. Care plan is discussed with the patient and her nurse at bedside. Will follow with you. Jenifer Jewell MD 07/01/2021 2:01 PM Images from the original note were not included. [facility] Internal Medicine Teaching Residency Program Inpatient Daily Progress Note __ Patient: Meg Georges Date of : 1965 Acct: [id number] Room: [address] [place] [address] Admit date: 06/28/2021 Today's date: 07/01/21 Number of days in the hospital: 3 SUBJECTIVE Admitting Diagnosis: Sepsis (HCC) CC: altered mentation Pt examined at bedside. Chart & results reviewed. overnight patient remained hypertensive Complains of nausea and headache, received Fioricet with little amelioration. ENT consult for hoarse voice Cannot feel pain/wound on foot. BC 06/30/2021 positive. BP 161/67, alert and oriented on room air Hypokalemia 2.2. replace and monitor. wbc 12, Hb 9.0, plt 284 ROS: Constitutional: negative for chills, fevers, sweats Respiratory: negative for cough, dyspnea on exertion, hemoptysis, shortness of breath, wheezing Cardiovascular: negative for chest pain, chest pressure/discomfort, lower extremity edema, palpitations Gastrointestinal: negative for abdominal pain, constipation, diarrhea, nausea, vomiting Neurological: negative for dizziness, headache BRIEF HISTORY The patient is a pleasant 56 y.o. female presents with a chief complaint of altered mentation. 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 Presented to ED from 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, found confused outside. Imaging negative. She complains of headache 11/26, not sure how she got to ED. Denies fever, vomiting, chest kristan, cough, SOB, abdominal pain. States last BM yesterday soft. Patient somnolent but arousable, follows command, hypertensive BP as high as 202/105, HR 110, on room air. Significant labs include glycemia 254, wbc 22. Lumbar tap done. Not concerning for acute meningitis. OBJECTIVE Vital Signs: BP (!) 161/67 Pulse 70 Temp 97.4 F (36.3 C) (Oral) Resp 17 Ht 5' 5 (1.651 m) Wt 145 lb (65.8 kg) LMP 12/02/2011 SpO2 96% BMI 24.13 kg/m Temp (24hrs), Av F (36.7 C), Min:97.4 F (36.3 C), Max:98.4 F (36.9 C) In: 1675.1 Out: 503 [Urine:503] Physical Exam: Constitutional: This is a well developed, well nourished, 18.5-24.9 - Normal 56 y.o. year old female who is alert, oriented, cooperative. Head:normocephalic and atraumatic. EENT: PERRLA. No conjunctival injections. Septum was midline, mucosa was without erythema, exudates or cobblestoning. No thrush was noted. Neck: Supple without thyromegaly. No palpable lymphadenopathy. Generalized tenderness anterior neck. No elevated JVP. Trachea was midline. Respiratory: Chest was symmetrical without dullness to percussion. Breath sounds bilaterally were clear to auscultation. There were no wheezes, rhonchi or rales. There is no intercostal retraction or use of accessory muscles. No egophony noted. Cardiovascular: Regular without murmur, clicks, gallops or rubs. Abdomen: Slightly rounded and soft without organomegaly. No rebound, rigidity or guarding was appreciated. Lymphatic: No lymphadenopathy. Musculoskeletal: Normal curvature of the spine. No gross muscle weakness. Extremities: No lower extremity edema, ulcerations, tenderness, varicosities or erythema. Muscle size, tone and strength are normal. No involuntary movements are noted. Skin: Ulcer present on left foot. Loss of sensation Neurological/Psychiatric: Patient alert and oriented x 3, memory intact, concentration preserved. Moves all extremities.decreased sensation in socks glove pattern Medications: Scheduled Medications: potassium chloride 10 mEq IntraVENous Once potassium bicarb-citric acid 40 mEq Oral Once [Held by provider] lisinopril 20 mg Oral Daily levothyroxine 100 mcg Oral Daily metoprolol 5 mg IntraVENous Q6H insulin glargine 16 Units SubCUTAneous Daily aspirin 81 mg Oral Daily nafcillin 2,000 mg IntraVENous Q4H [Held by provider] carvedilol 25 mg Oral BID WC sodium chloride flush 5-40 mL IntraVENous 2 times per day [Held by provider] enoxaparin 40 mg SubCUTAneous Daily latanoprost 1 drop Both Eyes Nightly insulin lispro 0-12 Units SubCUTAneous TID WC insulin lispro 0-6 Units SubCUTAneous Nightly Continuous Infusions: pantoprazole 8 mg/hr (07/01/21 0253) sodium chloride 100 mL/hr at 07/01/21 0600 sodium chloride dextrose PRN Tvqygnrftkgjjzlrwrvhs-comcnvlztkhiy-cp ffeine, 1 tablet, Q4H PRN hydrALAZINE, 10 mg, Q4H PRN sodium chloride flush, 5-40 mL, PRN sodium chloride, , PRN ondansetron, 4 mg, Q8H PRN Or ondansetron, 4 mg, Q6H PRN acetaminophen, 650 mg, Q6H PRN Or acetaminophen, 650 mg, Q6H PRN bisacodyl, 5 mg, Daily PRN sodium chloride flush, 5-40 mL, PRN labetalol, 10 mg, Q4H PRN glucose, 4 tablet, PRN dextrose bolus, 125 mL, PRN Or dextrose bolus, 250 mL, PRN glucagon (rDNA), 1 mg, PRN dextrose, 100 mL/hr, PRN Diagnostic Labs: CBC: Recent Labs 06/28/21 1212 06/28/21 1212 06/29/21 0351 06/29/21 0351 06/30/21 0909 06/30/21 2129 07/01/21 0631 WBC 22.0* -- 15.0* -- -- -- 12.6* RBC 3.72* -- 3.73* -- -- -- 3.43* HGB 10.0* < > 9.9* < > 9.8* 9.4* 9.0* HCT 31.0* < > 30.0* < > 31.3* 29.3* 28.4* MCV 83.3 -- 80.4* -- -- -- 82.8 RDW 16.1* -- 16.1* -- -- -- 16.2* PLT 379 -- 380 -- -- -- 284 < > = values in this interval not displayed. BMP: Recent Labs 06/28/21 1212 06/29/21 0351 07/01/21 0631 NA 135 137 137 K 4.0 3.2* 2.2* CL 97* 97* 102 CO2 23 25 25 BUN 18 18 18 CREATININE 0.70 0.76 0.97* BNP: No results for input(s): BNP in the last 72 hours. PT/INR: Recent Labs 06/28/211211 PROTIME 12.3 INR 1.2 APTT: Recent Labs 06/28/211211 APTT 23.9 CARDIAC ENZYMES: No results for input(s): CKMB, CKMBINDEX, TROPONINI in the last 72 hours. Invalid input(s): CKTOTAL;3 FASTING LIPID PANEL: Lab Results Component Value Date CHOL 155 06/28/2021 HDL 71 06/28/2021 TRIG 105 06/28/2021 LIVER PROFILE: Recent Labs 06/28/211211 AST 19 ALT 19 BILITOT 0.60 ALKPHOS 251* MICROBIOLOGY: Lab Results Component Value Date/Time CULTURE NO GROWTH <24 HRS 07/01/2021 06:31 AM Imaging: CT Head WO Contrast Result Date: 06/28/2021 1. Poorly diagnostic examination due to patient motion. 2. No gross evidence of hemorrhage or mass effect. A telephone call regarding the findings in examination and limitations the study was made to and acknowledged by Dr. Boothe in the emergency department at 4:55 AM on 06/28/2021. CT ABDOMEN PELVIS W IV CONTRAST Additional Contrast? None Result Date: 06/28/2021 1. No evidence of bowel obstruction. 2. Normal appendix. 3. Status post cholecystectomy. XR CHEST PORTABLE Result Date: 06/28/2021 No acute abnormality. CTA HEAD NECK W CONTRAST Result Date: 06/28/2021 Unremarkable CTA of the head and neck. ASSESSMENT & PLAN Sepsis with MSSA bacteremia; source unknown: -continu Nafcillin 2 g q 4 h. Stop date 07-29-21 per ID - repeat blood cx until negative -echo completed read pending - Erosive changes at craniocervical junction which may be related to arthritis or osteomyelitis by CT cervical spine 06-29-21 -left foot ulceration; Podiatry consulted for concern for osteomyelitis and possible source of MSSA bacteremia -XR left foot negative for osteomyelitis - CT chest showed right upper lobe pulmonary nodule -resp viral panel negative Upper GI bleed: -EGD on Friday -H&H q8 -ok for full liquid diet as per GI -avoid NSAIDs, anticoagulation -PPI gtt ongoing Hypothyroidism: -TSH low. - levothyroxine dose decreased from 112 mcg to 100 mcg daily Diabetes Mellitus type II: -medium dose ISS -hypoglycemia protocol - glucose checks q4 Essential hypertension: -scheduled metoprolol IV 5 mg BID -Prn Labetalol 10mg every 6hrs if SBP >160. -PRN hydralazine 10 mg q8 - lisinopril increased to 20 mg daily, patient currently unable to take PO coreg and lisinopril due to N&V Elevated troponins: Downtrending likely type II AL -echo result pending Hypokalemia: K+ 2.2 today. Replace PO and IV and monitor Rufus Argueta MD Internal Medicine Resident, PGY- [facility]; [place], [place] 07/01/2021, 7:33 AM Associated attestation - Silver Carmona MD - 07/01/2021 1:17 PM EDT Images from the original note were not included. Attending Physician Statement I have discussed the case, including pertinent history and exam findings with the resident and the team. I have seen and examined the patient and the coffey elements of the encounter have been performed by me. I agree with the assessment, plan and orders as documented by the resident. Review of Systems: In addition to the pertinent positives and negatives as stated within HPI and the review of systems as documented in their notes, all other systems were reviewed when able to and are reported negative. Patient is improving, continue nafcillin, ID input appreciated Plan for EGD tomorrow Replace potassium Silver Carmona MD Attending Physician, Internal Medicine Service Internal Medicine Residency Program 07/01/2021, 1:17 PM Images from the original note were not included. [facility] - Infectious diseases evaluation Progress Note admission date 06/28/2021 reason for consultation: Sepsis with staph bacteremia Impression : Current: MSSA septicemia 06-28-21 CRP elevation Bandemia Acute metabolic encephalopathy- resolved -LP neg CIDP chronic IVIG therapy - immunosuppressed Ulcer on the left foot Allergy to keflex and avelox - tolerates PNC Erosive changes at craniocervical junction which may be related to arthritis or osteomyelitis by CT cervical spine 06-29-21 Other: Hypothyroidism Diabetes mellitus type 2 Essential hypertension Elevated troponin CIDP on IVIG infusions every 2 weeks Discussion / summary of stay / plan of care Recommendations Acute encephalopathy from sepsis - Resolved CSF: No growth MSSA septicemia - Echo look for vegetation BC repeat till neg Nafcillin 2 g q 4 h. Stop date 07-29-21 Neck new pain -1 Mo old Monitor progression by CT cervical spine in a few weeks MRI C spine can not be done because of foreign object in her eyes Infection Control Recommendations [place] Precautions Antimicrobial Stewardship Recommendations Simplification of therapy Targeted therapy History of Present Illness: INITIAL HISTORY: Meg Georges is a 56 y.o.-year-old female who presented to the ED because of altered mental status. Patient is currently admitted under neurology service. Patient presented from a 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 after an episode of confusion overnight where she was found wandering outside her 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. She had CT head done at outside facility which did not show any acute changes. Telestroke was consulted because of the concern with confusion, they recommended transfer to [facility] for MRI of the brain. BC: Staph A (MSSA) and LP neg CRP elevated and WBc up - creat normal 06/29 mentally recovered Neck pain x 1 mo Left sole callus was infected x 2 months ago at the CT She gets her IvIg through a peripheral IV that gets pulled each time - no picc as an outpatient Hoarse x some time wo reason Cough x 1 month CURRENT EVALUATION : 07/01/2021 Interval changes 07/01/2021 Patient Vitals for the past 8 hrs: BP Temp Temp src Pulse Resp SpO2 07/01/21 0600 70 17 96 % 07/01/21 0500 88 24 98 % 07/01/21 0435 (!) 161/67 97.4 F (36.3 C) Oral 78 20 98 % 07/01/21 0400 96 (!) 31 97 % 07/01/21 0300 82 22 98 % 07/01/21 0200 84 19 97 % 07/01/21 0100 103 22 97 % 07/01/21 0000 (!) 152/65 97.6 F (36.4 C) Oral 89 23 99 % Afebrile VS stable, HTN Patient stable No complaints No new issues per RN Comfortable On room air RR 19-->22 02 sat 97-->99 Tolerating Nafcillin without any difficulties. Abnormality of cranio cervical junction identified by CT cervical spine. MRI can not be done because of foreign object in eye. Has developed hypokalemia. K 2.2 KCL requested Summary of relevant labs: 07/01/2021 Labs: CRP 150.7, procalcitonin 0.66, WBC: 15-->12.6 Hb 9.9-->9.0 Plat 300-->284 Na 137 K. 2.2 BUN 18 Cr 0.97 Micro: Blood Culture: 06-28-21: MSSA x 3 06-30-21: Pending CSF: 06/29 LP -WBC 2 - RBC 1: No growth Imaging: CT Head: 06-28-21: No gross evidence of hemorrhage or mass effect CT Head and neck: 06-28-21: Normal CT cervical spine: 06-29-21: Erosive changes at craniocervical junction which may be related to arthritis or osteomyelitis. CT Abdomen: 06-28-21: Normal . Prior cholecystectomy. CT Chest 06-29-21: 7 mm ground-glass nodule in the posterior right upper lobe. Follow up recommended in 6 months CXR: 06-29-21: No acute airspace disease identified. C I have personally reviewed the past medical history, past surgical history, medications, social history, and family history, and I haveupdated the database accordingly. Allergies: Moxifloxacin, Peg 3350-electrolytes, Tapentadol, Avelox [moxifloxacin hydrochloride], and Cephalexin Review of Systems: Review of Systems Constitutional: Positive for appetite change, fatigue and unexpected weight change. Negative for chills and fever. HENT: Positive for sore throat. Negative for ear pain and rhinorrhea. Hoarse Eyes: Negative for discharge. Respiratory: Positive for cough. Negative for choking, shortness of breath and wheezing. Cardiovascular: Negative for chest pain and leg swelling. Gastrointestinal: Positive for constipation and nausea. Negative for abdominal pain, blood in stool, diarrhea and vomiting. Endocrine: Negative for cold intolerance. Genitourinary: Positive for decreased urine volume. Negative for difficulty urinating and enuresis. Musculoskeletal: Positive for neck pain. Negative for back pain and joint swelling. Skin: Positive for wound. Negative for color change. Rash: left sole under MTS head 1. Allergic/Immunologic: Positive for immunocompromised state. Negative for food allergies. Neurological: Positive for light-headedness and headaches. Negative for syncope. Hematological: Negative for adenopathy. Psychiatric/Behavioral: Negative for agitation. The patient is not nervous/anxious. Physical Examination : Physical Exam Constitutional: General: She is not in acute distress. Appearance: She is not ill-appearing. HENT: Head: Normocephalic and atraumatic. Nose: Nose normal. No rhinorrhea. Mouth/Throat: Mouth: Mucous membranes are moist. Eyes: General: No scleral icterus. Conjunctiva/sclera: Conjunctivae normal. Cardiovascular: Rate and Rhythm: Normal rate and regular rhythm. Heart sounds: Normal heart sounds. No murmur heard. Pulmonary: Effort: Pulmonary effort is normal. No respiratory distress. Breath sounds: Normal breath sounds. No stridor. No wheezing. Abdominal: General: There is no distension. Palpations: Abdomen is soft. There is no mass. Tenderness: There is no abdominal tenderness. There is no guarding. Hernia: No hernia is present. Genitourinary: Comments: Urine chanda Musculoskeletal: General: No swelling. Cervical back: Rigidity present. Right lower leg: No edema. Left lower leg: No edema. Skin: Coloration: Skin is not jaundiced. Findings: Erythema present. No bruising. Neurological: Mental Status: She is alert and oriented to person, place, and time. Mental status is at baseline. Psychiatric: Mood and Affect: Mood normal. Behavior: Behavior normal. Past Medical History: Past Medical History: Diagnosis Date Asthma Cardiac murmur Diabetes mellitus (HCC) GERD (gastroesophageal reflux disease) Hyperlipidemia Hypertension Neuropathy Radiculopathy Spinal stenosis Thyroid disease Past Surgical History: Past Surgical History: Procedure Laterality Date ACHILLES TENDON SURGERY left BACK SURGERY L 4 and 5 1995, 1996 CHOLECYSTECTOMY SHOULDER SURGERY right Medications: [Held by provider] lisinopril 20 mg Oral Daily levothyroxine 100 mcg Oral Daily metoprolol 5 mg IntraVENous Q6H insulin glargine 16 Units SubCUTAneous Daily aspirin 81 mg Oral Daily nafcillin 2,000 mg IntraVENous Q4H [Held by provider] carvedilol 25 mg Oral BID WC sodium chloride flush 5-40 mL IntraVENous 2 times per day [Held by provider] enoxaparin 40 mg SubCUTAneous Daily latanoprost 1 drop Both Eyes Nightly insulin lispro 0-12 Units SubCUTAneous TID WC insulin lispro 0-6 Units SubCUTAneous Nightly Social History: Social History Socioeconomic History Marital status: Spouse name: Not on file Number of children: Not on file Years of education: Not on file Highest education level: Not on file Occupational History Not on file Tobacco Use Smoking status: Former Smoker Years: 20.00 Types: Cigarettes Quit date: 10/06/1995 Years since quittin.7 Smokeless tobacco: Never Used Substance and Sexual Activity Alcohol use: No Drug use: No Sexual activity: Not on file Other Topics Concern Not on file Social History Narrative Not on file Social Determinants of Health Financial Resource Strain: Difficulty of Paying Living Expenses: Not on file Food Insecurity: Worried About Running Out of Food in the Last Year: Not on file Ran Out of Food in the Last Year: Not on file Transportation Needs: Lack of Transportation (Medical): Not on file Lack of Transportation (Non-Medical): Not on file Physical Activity: Days of Exercise per Week: Not on file Minutes of Exercise per Session: Not on file Stress: Feeling of Stress : Not on file Social Connections: Frequency of Communication with Friends and Family: Not on file Frequency of Social Gatherings with Friends and Family: Not on file Attends Mosque Services: Not on file Active Member of Clubs or Organizations: Not on file Attends Club or Organization Meetings: Not on file Marital Status: Not on file Intimate Partner Violence: Fear of Current or Ex-Partner: Not on file Emotionally Abused: Not on file Physically Abused: Not on file Sexually Abused: Not on file Housing Stability: Unable to Pay for Housing in the Last Year: Not on file Number of Places Lived in the Last Year: Not on file Unstable Housing in the Last Year: Not on file Family History: Family History Problem Relation Age of Onset Diabetes Mother Cancer Father Medical Decision Making: I have independently reviewed/ordered the following labs: CBC with Differential: Recent Labs 06/29/21 0351 06/30/21 0909 06/30/219 07/01/21 0631 WBC 15.0* -- -- 12.6* HGB 9.9* < > 9.4* 9.0* HCT 30.0* < > 29.3* 28.4* PLT 380 -- -- 284 LYMPHOPCT 6* -- -- PENDING MONOPCT 3 -- -- PENDING < > = values in this interval not displayed. BMP: Recent Labs 06/29/21 03507/01/21 0631 NA 137 137 K 3.2* 2.2* CL 97* 102 CO2 25 25 BUN 18 18 CREATININE 0.76 0.97* MG 2.3 -- Hepatic Function Panel: Recent Labs 06/28/21 1212 06/28/21 1417 PROT 8.0 -- LABALBU 3.3* 3.6 BILITOT 0.60 -- ALKPHOS 251* -- ALT 19 -- AST 19 -- No results for input(s): RPR in the last 72 hours. No results for input(s): HIV in the last 72 hours. No results for input(s): BC in the last 72 hours. Lab Results Component Value Date CREATININE 0.97 07/01/2021 GLUCOSE 117 07/01/2021 GLUCOSE 229 06/04/2011 Detailed results: Thank you for allowing us to participate in the care of this patient.Please call with questions. This note is created with the assistance of a speech recognition program. While intending to generate adocument that actually reflects the content of the visit, the document can still have some errors including those of syntax and sound a like substitutions which may escape proof reading. It such instances, actual meaningcan be extrapolated by contextual diversion. Seth Stokes MD Office: Perfect serve / office [phone] [facility] Gastroenterology Progress Note Meg Georges is a 56 y.o. female patient. Hospitalization Day:3 Chief consult reason: Hematemesis Subjective: Patient seen and examined. Patient reports no further episodes of emesis yesterday, nausea is better as long as she sits up after eating. She also reports her voice has improved. Objective: VITALS: BP (!) 161/67 Pulse 88 Temp 97.4 F (36.3 C) (Oral) Resp 24 Ht 5' 5 (1.651 m) Wt 145 lb (65.8 kg) LMP 12/02/2011 SpO2 98% BMI 24.13 kg/m TEMPERATURE: Current - Temp: 97.4 F (36.3 C); Max - Temp Av F (36.7 C) Min: 97.4 F (36.3 C) Max: 98.4 F (36.9 C) Physical Assessment: General appearance: alert, cooperative and no distress Mental Status: oriented to person, place and time and normal affect Lungs: clear to auscultation bilaterally, normal effort Heart: regular rate and rhythm, no murmur Abdomen: soft, nontender, nondistended, normal bowel sounds Extremities: no edema, no redness, No clubbing Skin: warm, dry, no gross lesions or rashes CURRENT MEDICATIONS: Scheduled Meds: [Held by provider] lisinopril 20 mg Oral Daily levothyroxine 100 mcg Oral Daily metoprolol 5 mg IntraVENous Q6H insulin glargine 16 Units SubCUTAneous Daily aspirin 81 mg Oral Daily nafcillin 2,000 mg IntraVENous Q4H [Held by provider] carvedilol 25 mg Oral BID WC sodium chloride flush 5-40 mL IntraVENous 2 times per day [Held by provider] enoxaparin 40 mg SubCUTAneous Daily latanoprost 1 drop Both Eyes Nightly insulin lispro 0-12 Units SubCUTAneous TID WC insulin lispro 0-6 Units SubCUTAneous Nightly Continuous Infusions: pantoprazole 8 mg/hr (07/01/21252) sodium chloride Stopped (07/01/21426) sodium chloride dextrose PRN Meds:xjirvfpzlf-ygbuoardfcojy-nzjvnmjl , hydrALAZINE, sodium chloride flush, sodium chloride, ondansetron OR ondansetron, acetaminophen OR acetaminophen, potassium chloride OR potassium alternative oral replacement OR potassium chloride, bisacodyl, sodium chloride flush, labetalol, glucose, dextrose bolus OR dextrose bolus, glucagon (rDNA), dextrose Data Review: LABS and IMAGING: CBC Recent Labs 06/28/21 1212 06/29/21 0351 06/30/21 0909 06/30/21 2129 WBC 22.0* 15.0* -- -- HGB 10.0* 9.9* 9.8* 9.4* HCT 31.0* 30.0* 31.3* 29.3* MCV 83.3 80.4* -- -- MCHC 32.3 33.0 -- -- RDW 16.1* 16.1* -- -- PLT 379 380 -- -- Immature PLTs No results found for: PLTFLUORE ANEMIA STUDIES No results for input(s): LABIRON, TIBC, IRON, FERRITIN, [id number], FOLATE, OCCULTBLD in the last 72 hours. BMP Recent Labs 06/28/21 1212 06/29/21 0351 NA 135 137 K 4.0 3.2* CL 97* 97* CO2 23 25 BUN 18 18 CREATININE 0.70 0.76 GLUCOSE 254* 221* CALCIUM 9.2 9.3 LFTS Recent Labs 06/28/21 1212 06/28/21 1417 ALKPHOS 251* -- ALT 19 -- AST 19 -- BILITOT 0.60 -- LABALBU 3.3* 3.6 AMYLASE/LIPASE/AMMONIA Recent Labs 06/28/21 1212 LIPASE 23 Acute Hepatitis Panel No results found for: HEPBSAG, HEPCAB, HEPBIGM, HEPAIGM HCV Genotype No results found for: HEPATITISCGENOTYPE HCV Quantitative No results found for: HCVQNT LIVER WORK UP: AFP No results found for: AFP Alpha 1 antitrypsin No results found for: A1A Anti - Liver/Kidney Ab No results found for: LIVER-KIDNEYMICROSOMALAB VJ No results found for: JV AMA No results found for: MITOAB ASMA No results found for: SMOOTHMUSCAB Ceruloplasmin No results found for: CERULOPLSM Celiac panel No results found for: TISSTRNTIIGG, TTGIGA, IGA IgG Lab Results Component Value Date IGG 1383 06/28/2021 IgM No results found for: IGM GGT No results found for: LABGGT PT/INR Recent Labs 06/28/21 1212 PROTIME 12.3 INR 1.2 Cancer Markers: CEA: No results found for: CEA Ca 125: No results found for: CA125 Ca 19-9: No results found for: CA199 AFP: No results found for: AFP Lactic acid:No results for input(s): LACTACIDWB in the last 72 hours. Radiology Review: XR FOOT LEFT (MIN 3 VIEWS) Result Date: 06/30/2021 EXAMINATION: THREE XRAY VIEWS OF THE LEFT FOOT 06/30/2021 11:39 am COMPARISON: None. HISTORY: ORDERING SYSTEM PROVIDED HISTORY: r/o osteomyelitis TECHNOLOGIST PROVIDED HISTORY: r/o osteomyelitis FINDINGS: There is evidence of previous amputation of the 2nd toe. There is mild soft tissue swelling along the medial aspect of the 1st MTP joint and mild bony erosion at the medial aspect of the 1st metatarsal head. No soft tissue ulceration or soft tissue gas visible radiographically. There is moderate joint space narrowing and spurring in the midfoot. No acute fracture or dislocation. Large plantar calcaneal spur and insertional Achilles enthesophyte. 1. Mild soft tissue swelling overlying the 1st MTP joint with mild bony erosion at the medial aspect of the 1st metatarsal head. If this corresponds to a site of soft tissue ulceration or injury, this could represent early osteomyelitis. If there is no corresponding ulceration, this could be related to inflammatory arthropathy or gout. 2. Previous 2nd toe amputation. CT Head WO Contrast Result Date: 06/28/2021 INDICATION: 56 years old; Female. Change in mental status. TECHNIQUE: CT Head (ax/cor/sag reformats). Ionizing radiation dose reduced via iterative reconstruction/FBP blend and body size kV/mA adjustment. Comparison: Head CT dated 10/06/2016. There are extensive motion artifacts and streak artifacts. The study is poorly diagnostic. FINDINGS: POSTOPERATIVE CHANGES: None. BRAIN PARENCHYMA: Allowing for artifacts, there is no gross evidence of hemorrhage or mass effect. No midline shift or herniation. There is grossly normal shah/white differentiation. VENTRICLES/EXTRA-AXIAL SPACES: Enlarged consistent with atrophy. SINUSES/MASTOIDS: Poorly evaluated due to artifact. No gross evidence of opacification or fluid levels. Mastoid air cells are clear. MSK: No gross evidence of displaced or depressed fractures, however the calvarium is deformed due to artifacts. Incidental note is made of cystic changes in the dens and body of C2. This is not adequately evaluated in the present study. OTHER: None. 1. Poorly diagnostic examination due to patient motion. 2. No gross evidence of hemorrhage or mass effect. A telephone call regarding the findings in examination and limitations the study was made to and acknowledged by Dr. Boothe in the emergency department at 4:55 AM on 06/28/2021. CT CHEST WO CONTRAST Result Date: 06/29/2021 EXAMINATION: CT OF THE CHEST WITHOUT CONTRAST 06/29/2021 7:14 pm TECHNIQUE: CT of the chest was performed without the administration of intravenous contrast. Multiplanar reformatted images are provided for review. Automated exposure control, iterative reconstruction, and/or weight based adjustment of the mA/kV was utilized to reduce the radiation dose to as low as reasonably achievable. COMPARISON: None. HISTORY: ORDERING SYSTEM PROVIDED HISTORY: look for septic pulm - no need for contrast TECHNOLOGIST PROVIDED HISTORY: look for septic pulm - no need for contrast Reason for Exam: look for septic pulm - no need for contrast FINDINGS: Mediastinum: The heart and great vessels are normal in size. Calcified atheromatous plaque and coronary calcifications are noted. No pericardial effusion. No enlarged or suspicious-appearing lymph nodes are identified. Lungs/pleura: 7 mm ground-glass nodule in the posterior right upper lobe on axial image 51 is noted, otherwise the lungs are clear. No effusion. The central airway is patent. Upper Abdomen: Exophytic indeterminate left renal lesions measuring 12 and 13 mm. Cholecystectomy. Soft Tissues/Bones: No acute findings. 1. 7 mm ground-glass nodule in the posterior right upper lobe. Please see follow-up recommendations below. 2. No consolidation or acute inflammatory process otherwise appreciated. 3. Indeterminate exophytic left renal lesions which could be further characterized by CT or MRI renal mass protocol. RECOMMENDATIONS: 7 mm right ground-glass pulmonary nodule within the upper lobe. Recommend a non-contrast Chest CT at 6-12 months to confirm persistence, then additional non-contrast Chest CTs every 2 years until 5 years. If nodule grows or develops solid component(s), consider resection. These guidelines do not apply to immunocompromised patients and patients with cancer. Follow up in patients with significant comorbidities as clinically warranted. For lung cancer screening, adhere to Lung-RADS guidelines. Reference: Radiology. 2017; 284(1):228-43. CT CERVICAL SPINE W CONTRAST Result Date: 06/29/2021 EXAMINATION: CT OF THE CERVICAL SPINE WITH CONTRAST 06/29/2021 7:14 pm TECHNIQUE: CT of the cervical was performed with the administration of intravenous contrast. Multiplanar reformatted images are provided for review. Automated exposure control, iterative reconstruction, and/or weight based adjustment of the mA/kV was utilized to reduce the radiation dose to as low as reasonably achievable. COMPARISON: CT angiogram head and neck 06/28/2021 HISTORY: ORDERING SYSTEM PROVIDED HISTORY: look for osteomyelitis in cervical spine TECHNOLOGIST PROVIDED HISTORY: look for osteomyelitis in cervical spine Reason for Exam: look for osteomyelitis in cervical spine FINDINGS: BONES/ALIGNMENT: There is normal alignment of the spine. The vertebral body heights are maintained. There are subchondral cystic changes identified C1-C2 which could be degenerative. There is question subtle areas of erosion involving the occipital condyles bilaterally extending to the C1 lateral masses.. Similarly, there are areas of and inferior endplate erosions identified involving the tip of the clivus. Endplate degenerate changes C6-C7 as well. DEGENERATIVE CHANGES: Mild canal encroachment identified at C2 the craniocervical junction due to moderate change. Multilevel degenerate changes cervical spine notably C6-C7.. SOFT TISSUES: There is no prevertebral soft tissue swelling. Erosive changes identified at the craniocervical junction other may related to nonspecific inflammatory arthropathy/rheumatoid arthritis, given the degree of erosions involving the clivus and both lateral mass identified both condyles, infection/underlying possibility of underlying osteomyelitis should be considered in the appropriate clinical setting. MRI could be beneficial for more definitive characterization. The findings were sent to the Radiology Results Communication Center at 10:31 pm on 06/29/2021 to be communicated to a licensed caregiver. CT ABDOMEN PELVIS W IV CONTRAST Additional Contrast? None Result Date: 06/28/2021 EXAMINATION: CT ABDOMEN PELVIS W IV CONTRAST, 06/28/2021 5:44 AM EDT HISTORY: Vomiting and altered mental status. COMPARISON: None. TECHNIQUE: CT scan of the abdomen and pelvis was performed after the administration of 75 mL Isovue-[address] dose reduction technique was used, including Automated Exposure Control. FINDINGS: The visualized portions of the lung bases are clear. Abdomen: The liver and spleen enhance homogeneously without focal lesion. There is no intra or extrahepatic biliary duct dilatation. The gallbladder is surgically absent. There are a couple left renal cysts with additional bilateral renal hypodensities which are too small to characterize by CT size criteria. Otherwise, the pancreas, adrenal glands, kidneys, and bowel loops, including the appendix, are unremarkable. There is no mesenteric or retroperitoneal lymphadenopathy. Pelvis: The bladder and rectum are unremarkable. There is no iliac or inguinal lymphadenopathy. The uterus is present. There is a left ovarian calcification. Otherwise, the ovaries appear within normal limits by CT. There is mild to moderate atherosclerotic disease. Bone windows show no aggressive osseous lesions. Laminectomy changes are noted at L4. 1. No evidence of bowel obstruction. 2. Normal appendix. 3. Status post cholecystectomy. XR CHEST PORTABLE Result Date: 06/29/2021 EXAMINATION: ONE XRAY VIEW OF THE CHEST 06/29/2021 7:14 pm COMPARISON: 06/28/2021 HISTORY: ORDERING SYSTEM PROVIDED HISTORY: cough TECHNOLOGIST PROVIDED HISTORY: cough Reason for Exam: Upright port, cough FINDINGS: The cardiomediastinal silhouette is within normal limits. There is no consolidation, pneumothorax or evidence for edema. No evidence for effusion. No acute osseous abnormality is identified. No acute airspace disease identified. XR CHEST PORTABLE Result Date: 06/28/2021 CLINICAL HISTORY: altered mental status COMPARISON: none FINDINGS: Portable AP view of the chest obtained. Cardiomediastinal silhouette is normal. Lungs are clear, no evidence of infiltrate, suspicious nodule, or mass. No evidence of significant pleural fluid on this portable projection. No acute bony abnormality. No acute abnormality. CTA HEAD NECK W CONTRAST Result Date: 06/28/2021 EXAMINATION: CTA OF THE HEAD AND NECK WITH CONTRAST 06/28/2021 12:15 pm: TECHNIQUE: CTA of the head and neck was performed with the administration of intravenous contrast. Multiplanar reformatted images are provided for review. MIP images are provided for review. Stenosis of the internal carotid arteries measured using NASCET criteria. Automated exposure control, iterative reconstruction, and/or weight based adjustment of the mA/kV was utilized to reduce the radiation dose to as low as reasonably achievable. COMPARISON: None. HISTORY: ORDERING SYSTEM PROVIDED HISTORY: AMS TECHNOLOGIST PROVIDED HISTORY: AMS Decision Support Exception - unselect if not a suspected or confirmed emergency medical condition->Emergency Medical Condition (MA) Reason for Exam: ams FINDINGS: CTA NECK: AORTIC ARCH/ARCH VESSELS: No dissection or arterial injury. No significant stenosis of the brachiocephalic or subclavian arteries. CAROTID ARTERIES: No dissection, arterial injury, or hemodynamically significant stenosis by NASCET criteria. VERTEBRAL ARTERIES: No dissection, arterial injury, or significant stenosis. SOFT TISSUES: The lung apices are clear. No cervical or superior mediastinal lymphadenopathy. The larynx and pharynx are unremarkable. No acute abnormality of the salivary and thyroid glands. BONES: No acute osseous abnormality. CTA HEAD: ANTERIOR CIRCULATION: No significant stenosis of the intracranial internal carotid, anterior cerebral, or middle cerebral arteries. No aneurysm. POSTERIOR CIRCULATION: No significant stenosis of the vertebral, basilar, or posterior cerebral arteries. No aneurysm. OTHER: No dural venous sinus thrombosis on this non-dedicated study. BRAIN: No mass effect or midline shift. No extra-axial fluid collection. The shah-white differentiation is maintained. Unremarkable CTA of the head and neck. ENDOSCOPY Principal Problem: Sepsis ([facility]) Active Problems: Altered mental state Encephalitis Encephalopathy CIDP (chronic inflammatory demyelinating polyneuropathy) ([facility]) Bacteremia Hypothyroidism Hypokalemia Type 2 diabetes mellitus with diabetic polyneuropathy ([facility]) Primary hypertension Upper GI bleed Non-intractable vomiting Unintentional weight loss Acute metabolic encephalopathy MSSA (methicillin susceptible Staphylococcus aureus) septicemia ([facility]) Resolved Problems: * No resolved hospital problems. 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 She was noted to be hypertensive in the ED. patient had an episode of coffee-ground hematemesis last evening for which GI was consulted. 1. Upper GI bleed with coffee-ground hematemesis - resolved - likely secondary to erosive esophagitis in the setting of nausea and vomiting x2 weeks. Gastritis/duodenitis possible. 2. Nausea/ vomiting -suspect secondary to uncontrolled diabetes. ( Hemoglobin A1c 9.6) vs uncontrolled HTN vs sepsis 3. Unintentional weight loss. -Secondary to nausea vomiting 4. Uncontrolled insulin-dependent type 2 diabetes 5. AMS - improved 6. MSSA septicemia Plan of care: 1. We will plan for EGD tomorrow. N.P.O. after midnight 2. Continue with clear liquid diet for now 3. Supportive care with antiemetics as needed 4. Continue PPI drip 5. Monitor serial hemoglobin and hematocrit. Transfuse to keep hemoglobin greater than 7 g/dL as clinically indicated Time spent reviewing chart, seeing patient, discussing with attending, and scheduling endoscopic procedure: Around 35 minutes This plan was formulated in collaboration with Dr. Wagner Please feel free to contact me with any questions or concerns. Thank you for allowing me to participate in the care of your patient. Rosalinda Alvarado APRN - LAND SURVEYING MANAGER on 07/01/2021 at 6:50 AM [facility] Please note that this note was generated using a voice recognition dictation software. Although every effort was made to ensure the accuracy of this automated dampener, some errors in dampener may have occurred. Associated attestation - Hari Wagner MD - 07/01/2021 11:00 AM EDT Attending Physician Statement I have seen, examined and discussed the care of Meg Georges, including pertinent history and exam findings, with the LAND SURVEYING MANAGER. I agree with the assessment, plan and orders as documented by the LAND SURVEYING MANAGER. SPIRITUAL CARE DEPARTMENT - [facility] PROGRESS NOTE Shift date: 06/30/21 Shift day: Friday Shift # 2 Room # 0146/0146-01 Name: Meg Georges Age: 56 y.o. Gender: female Anabaptist: Judaism Place of evangelical: Referral: Routine Visit Admit Date & Time: 06/28/2021 11:59 AM PATIENT/EVENT DESCRIPTION: Meg Georges is a 56 y.o. female SPIRITUAL ASSESSMENT/INTERVENTION: Patient appeared to welcome service parts coordinator presence. Patient engaged in conversation and stated she had lost her voice. Local Flatbed Driver was a ministry of presence and offered prayer for spiritual comfort/support. Patient accepted prayer and expressed gratitude for visit. SPIRITUAL CARE FOLLOW-UP PLAN: Chaplains will remain available to offer spiritual and emotional support as needed. . Spiritual Care Department [facility] [phone] Images from the original note were not included. [facility] Internal Medicine Teaching Residency Program Inpatient Daily Progress Note __ Patient: Meg Georges Date of : 1965 Acct: [id number] Room: [id number]- Admit date: 06/28/2021 Today's date: 06/30/21 Number of days in the hospital: 2 SUBJECTIVE Admitting Diagnosis: Altered mental state CC: altered mentation Pt examined at bedside. Chart & results reviewed. overnight patient remained hypertensive, had 1 episode of hematemesis this am PO meds held, started on scheduled lopressor 5 mg IV BID for BP control Started on protonix gtt H&Hq8, GI consulted, plan for EGD Continues to grow Staph on blood cx, on nafcillin as per ID Echo completed, read pending Podiatry consulted for left foot ulceration XR left foot for possible osteomyelitis ROS: Constitutional: negative for chills, fevers, sweats Respiratory: negative for cough, dyspnea on exertion, hemoptysis, shortness of breath, wheezing Cardiovascular: negative for chest pain, chest pressure/discomfort, lower extremity edema, palpitations Gastrointestinal: negative for abdominal pain, constipation, diarrhea, nausea, vomiting Neurological: negative for dizziness, headache BRIEF HISTORY The patient is a pleasant 56 y.o. female presents with a chief complaint of altered mentation. 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 Presented to ED from 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, found confused outside. Imaging negative. She complains of headache 11/26, not sure how she got to ED. Denies fever, vomiting, chest kristan, cough, SOB, abdominal pain. States last BM yesterday soft. Patient somnolent but arousable, follows command, hypertensive BP as high as 202/105, HR 110, on room air. Significant labs include glycemia 254, wbc 22. Lumbar tap done. Not concerning for acute meningitis. OBJECTIVE Vital Signs: BP (!) 167/78 Pulse 81 Temp 98.3 F (36.8 C) (Oral) Resp 19 Ht 5' 5 (1.651 m) Wt 145 lb (65.8 kg) LMP 12/02/2011 SpO2 97% BMI 24.13 kg/m Temp (24hrs), Av.3 F (36.8 C), Min:98.2 F (36.8 C), Max:98.4 F (36.9 C) In: 1013 Out: 1050 [Urine:1050] Physical Exam: Constitutional: This is a well developed, well nourished, 18.5-24.9 - Normal 56 y.o. year old female who is alert, oriented, cooperative. Head:normocephalic and atraumatic. EENT: PERRLA. No conjunctival injections. Septum was midline, mucosa was without erythema, exudates or cobblestoning. No thrush was noted. Neck: Supple without thyromegaly. No palpable lymphadenopathy. Generalized tenderness anterior neck. No elevated JVP. Trachea was midline. Respiratory: Chest was symmetrical without dullness to percussion. Breath sounds bilaterally were clear to auscultation. There were no wheezes, rhonchi or rales. There is no intercostal retraction or use of accessory muscles. No egophony noted. Cardiovascular: Regular without murmur, clicks, gallops or rubs. Abdomen: Slightly rounded and soft without organomegaly. No rebound, rigidity or guarding was appreciated. Lymphatic: No lymphadenopathy. Musculoskeletal: Normal curvature of the spine. No gross muscle weakness. Extremities: No lower extremity edema, ulcerations, tenderness, varicosities or erythema. Muscle size, tone and strength are normal. No involuntary movements are noted. Skin: Ulcer present on left foot Neurological/Psychiatric: Patient alert and oriented x 3, memory intact, concentration preserved. Moves all extremities.decreased sensation in socks glove pattern Medications: Scheduled Medications: [Held by provider] lisinopril 20 mg Oral Daily [START ON 07/01/2021] levothyroxine 100 mcg Oral Daily metoprolol 5 mg IntraVENous Q6H pantoprazole (PROTONIX) bolus 80 mg IntraVENous Once insulin glargine 16 Units SubCUTAneous Daily aspirin 81 mg Oral Daily nafcillin 2,000 mg IntraVENous Q4H [Held by provider] carvedilol 25 mg Oral BID WC sodium chloride flush 5-40 mL IntraVENous 2 times per day [Held by provider] enoxaparin 40 mg SubCUTAneous Daily latanoprost 1 drop Both Eyes Nightly insulin lispro 0-12 Units SubCUTAneous TID WC insulin lispro 0-6 Units SubCUTAneous Nightly Continuous Infusions: pantoprazole sodium chloride Stopped (06/30/21 0408) sodium chloride dextrose PRN Joqkafvznlkaarsgdvyep-ugtoewtpleqrt-ma ffeine, 1 tablet, Q4H PRN hydrALAZINE, 10 mg, Q4H PRN sodium chloride flush, 5-40 mL, PRN sodium chloride, , PRN ondansetron, 4 mg, Q8H PRN Or ondansetron, 4 mg, Q6H PRN acetaminophen, 650 mg, Q6H PRN Or acetaminophen, 650 mg, Q6H PRN potassium chloride, 40 mEq, PRN Or potassium alternative oral replacement, 40 mEq, PRN Or potassium chloride, 10 mEq, PRN bisacodyl, 5 mg, Daily PRN sodium chloride flush, 5-40 mL, PRN labetalol, 10 mg, Q4H PRN glucose, 4 tablet, PRN dextrose bolus, 125 mL, PRN Or dextrose bolus, 250 mL, PRN glucagon (rDNA), 1 mg, PRN dextrose, 100 mL/hr, PRN Diagnostic Labs: CBC: Recent Labs 06/28/21 0410 06/28/21 0410 06/28/21 1212 06/29/21 0351 06/30/21 0909 WBC 21.5* -- 22.0* 15.0* -- RBC 3.83* -- 3.72* 3.73* -- HGB 10.1* < > 10.0* 9.9* 9.8* HCT 30.9* < > 31.0* 30.0* 31.3* MCV 80.5 -- 83.3 80.4* -- RDW 17.1* -- 16.1* 16.1* -- PLT 537* -- 379 380 -- < > = values in this interval not displayed. BMP: Recent Labs 06/28/21 04106/28/21121106/29/21 035 NA 138 135 137 K 3.4* 4.0 3.2* CL 95* 97* 97* CO2 27 23 25 BUN 25* 18 18 CREATININE 0.89 0.70 0.76 BNP: No results for input(s): BNP in the last 72 hours. PT/INR: Recent Labs 06/28/21 121 PROTIME 12.3 INR 1.2 APTT: Recent Labs 06/28/211211 APTT 23.9 CARDIAC ENZYMES: No results for input(s): CKMB, CKMBINDEX, TROPONINI in the last 72 hours. Invalid input(s): CKTOTAL;3 FASTING LIPID PANEL: Lab Results Component Value Date CHOL 155 06/28/2021 HDL 71 06/28/2021 TRIG 105 06/28/2021 LIVER PROFILE: Recent Labs 06/28/21 0410 06/28/211211 AST 16 19 ALT 25 19 BILITOT 0.45 0.60 ALKPHOS 290* 251* MICROBIOLOGY: Lab Results Component Value Date/Time CULTURE NO GROWTH <24 HRS 06/30/2021 08:05 AM Imaging: CT Head WO Contrast Result Date: 06/28/2021 1. Poorly diagnostic examination due to patient motion. 2. No gross evidence of hemorrhage or mass effect. A telephone call regarding the findings in examination and limitations the study was made to and acknowledged by Dr. Boothe in the emergency department at 4:55 AM on 06/28/2021. CT ABDOMEN PELVIS W IV CONTRAST Additional Contrast? None Result Date: 06/28/2021 1. No evidence of bowel obstruction. 2. Normal appendix. 3. Status post cholecystectomy. XR CHEST PORTABLE Result Date: 06/28/2021 No acute abnormality. CTA HEAD NECK W CONTRAST Result Date: 06/28/2021 Unremarkable CTA of the head and neck. ASSESSMENT & PLAN Sepsis with MSSA bacteremia; source unknown: -continue nafcillin until repeat blood cx negative -echo completed read pending -left foot ulceration; Podiatry consulted for concern for osteomyelitis and possible source of MSSA bacteremia -XR left foot negative for osteomyelitis - CT chest showed right upper lobe pulmonary nodule -resp viral panel negative Upper GI bleed: -EGD on Friday -H&H q8 -ok for full liquid diet as per GI -avoid NSAIDs, anticoagulation -PPI gtt ongoing Hypothyroidism: -TSH low. - levothyroxine dose decreased from 112 mcg to 100 mcg daily Diabetes Mellitus type II: -medium dose ISS -hypoglycemia protocol - glucose checks q4 Essential hypertension: -scheduled metoprolol IV 5 mg BID -Prn Labetalol 10mg every 6hrs if SBP >160. -PRN hydralazine 10 mg q8 - lisinopril increased to 20 mg daily, patient currently unable to take PO coreg and lisinopril due to N&V Elevated troponins: Downtrending likely type II AL -echo result pending Hypokalemia: Labs pending Jonathan Steve MD Internal Medicine Resident, PGY- [facility]; [place], [place] 06/30/2021, 12:56 PM Associated attestation - Silver Carmona MD - 06/30/2021 3:40 PM EDT Images from the original note were not included. Attending Physician Statement I have discussed the case, including pertinent history and exam findings with the resident and the team. I have seen and examined the patient and the coffey elements of the encounter have been performed by me. I agree with the assessment, plan and orders as documented by the resident. Review of Systems: In addition to the pertinent positives and negatives as stated within HPI and the review of systems as documented in their notes, all other systems were reviewed when able to and are reported negative. ID input noted and appreciated, continue nafcillin, will need outpatient follow-up of CT cervical spine. Speech therapy evaluation GI consult for coffee-ground emesis Monitor hemoglobin, start Protonix Patient has an ulcer on the foot, will get podiatry evaluation Continue supportive care Silver Carmona MD Attending Physician, Internal Medicine Service Internal Medicine Residency Program 06/30/2021, 3:40 PM NEUROLOGY INPATIENT PROGRESS NOTE 06/30/2021 Subjective: Meg Georges is a 56 y.o. female admitted on 06/28/2021 with Stupor [R40.1] Encephalitis [G04.90] Altered mental state [R41.82] Briefly, this is a 56 y.o. 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 Her history is significant for CIDP for which she has been on 2 weekly IVIG infusion through [facility] neurology clinic. Vitals on admit: 167/68, 102/min, 98.[address] head on admit was negative for acute intracranial abnormalities. CTA head and neck with no large vessel occlusion. CT chest showed 7 mm groundglass nodule in posterior right upper lobe. No consolidation or acute inflammatory process otherwise appreciated. Indeterminate exophytic left renal lesions. EEG demonstrated normal awake and asleep EEG. Spinal tap with normal WBC and protein making meningoencephalitis unlikely. Procalcitonin elevated at 0.66 CRP elevated at 109.1 Patient stated that headache has been improving. She has not been able to swallow due to ongoing nausea and vomiting. She has been NPO b/o coffee-ground emesis. Medicine team requested GI consult and patient was initiated on Protonix drip. On schedule for EGD. No current facility-administered medications on file prior to encounter. Current Outpatient Medications on File Prior to Encounter Medication Sig Dispense Refill insulin glargine (LANTUS) 100 UNIT/ML injection vial Inject 16 Units into the skin nightly brimonidine (ALPHAGAN P) 0.15 % ophthalmic solution Apply 1 drop to eye 2 times daily Left eye carvedilol (COREG) 25 MG tablet Take 25 mg by mouth 2 times daily (with meals) HYDROcodone-acetaminophen (NORCO) 5-325 MG per tablet Take 1 tablet by mouth every 4 hours as needed for Pain. insulin lispro (HUMALOG KWIKPEN) 100 UNIT/ML pen Inject 30 Units into the skin 3 times daily (before meals) Sliding scale coverage- Use less than 30 units with sliding scale aspirin 325 MG tablet Take 325 mg by mouth daily latanoprost (XALATAN) 0.005 % ophthalmic solution Place 1 drop into both eyes nightly lisinopril (PRINIVIL;ZESTRIL) 10 MG tablet Take 10 mg by mouth daily tiZANidine (ZANAFLEX) 4 MG tablet Take 4 mg by mouth as needed dorzolamide-timolol (COSOPT) 22.3-6.8 MG/ML ophthalmic solution Place 1 drop into the right eye 2 times daily Multiple Vitamins-Minerals (MULTIVITAMIN ADULT PO) Take 1 tablet by mouth daily levothyroxine (SYNTHROID) 112 MCG tablet Take 112 mcg by mouth Daily Allergies: Meg Georges is allergic to moxifloxacin, peg 3350-electrolytes, tapentadol, avelox [moxifloxacin hydrochloride], and cephalexin. Past Medical History: Diagnosis Date Asthma Cardiac murmur Diabetes mellitus (HCC) GERD (gastroesophageal reflux disease) Hyperlipidemia Hypertension Neuropathy Radiculopathy Spinal stenosis Thyroid disease Past Surgical History: Procedure Laterality Date ACHILLES TENDON SURGERY left BACK SURGERY L 4 and 5 1995, 1996 CHOLECYSTECTOMY SHOULDER SURGERY right Medications: [Held by provider] lisinopril 20 mg Oral Daily [START ON 07/01/2021] levothyroxine 100 mcg Oral Daily pantoprazole (PROTONIX) 40 mg injection 40 mg IntraVENous Daily metoprolol 5 mg IntraVENous Q6H insulin glargine 16 Units SubCUTAneous Daily aspirin 81 mg Oral Daily nafcillin 2,000 mg IntraVENous Q4H [Held by provider] carvedilol 25 mg Oral BID WC sodium chloride flush 5-40 mL IntraVENous 2 times per day [Held by provider] enoxaparin 40 mg SubCUTAneous Daily latanoprost 1 drop Both Eyes Nightly insulin lispro 0-12 Units SubCUTAneous TID WC insulin lispro 0-6 Units SubCUTAneous Nightly PRN Meds include: svjsmfnobb-xjhhligrkhjdv-ntbflleb, hydrALAZINE, sodium chloride flush, sodium chloride, ondansetron OR ondansetron, acetaminophen OR acetaminophen, potassium chloride OR potassium alternative oral replacement OR potassium chloride, bisacodyl, sodium chloride flush, labetalol, glucose, dextrose bolus OR dextrose bolus, glucagon (rDNA), dextrose Objective: BP (!) 167/78 Pulse 81 Temp 98.3 F (36.8 C) (Oral) Resp 19 Ht 5' 5 (1.651 m) Wt 145 lb (65.8 kg) LMP 12/02/2011 SpO2 97% BMI 24.13 kg/m Blood pressure range: Systolic (24hrs), Av , Min:139 , Max:170 ; Diastolic (24hrs), Av, Min:72, Max:120 On exam; alert and awake and oriented to person and place but not to the month and year. She was able to follow simple commands. She has difficulty with naming and repetition. She was able to follow simple commands. Difficulty with immediate recall. Pupils are bilaterally reactive. Blinks to threat bilaterally. She moves bilateral upper extremities with 5/5 MRC and she has significant weakness in bilateral lower extremities at 4+/5 MRC proximally and 4 -/5 distally with diminished light touch and pinprick in distal lower extremities with symmetric 2+ DTRs in upper extremities and hypoactive patellar jerks and absent ankle jerks with equivocal plantar responses bilaterally. Data: Lab Results: CBC: Recent Labs 06/28/2140906/28/21 0410 06/28/21121106/29/21 0351 06/30/21 0909 WBC 21.5* -- 22.0* 15.0* -- HGB 10.1* < > 10.0* 9.9* 9.8* PLT 537* -- 379 380 -- < > = values in this interval not displayed. BMP: Recent Labs 06/28/210 06/28/21121106/29/21 035 NA 138 135 137 K 3.4* 4.0 3.2* CL 95* 97* 97* CO2 27 23 25 BUN 25* 18 18 CREATININE 0.89 0.70 0.76 GLUCOSE 268* 254* 221* Lab Results Component Value Date CHOL 155 06/28/2021 LDLCHOLESTEROL 63 06/28/2021 HDL 71 06/28/2021 TRIG 105 06/28/2021 ALT 19 06/28/2021 AST 19 06/28/2021 TSH 0.15 (L) 06/28/2021 INR 1.2 06/28/2021 LABA1C 9.4 (H) 06/28/2021 LABMICR 7 06/25/2013 [id number] 06/28/2016 Impression and Plan: Ms. Meg Georges is a 56 y.o. female with Metabolic encephalopathy with MSSA staph bacteremia; Procalcitonin elevated at 0.66; CRP elevated at 109.1., With abnormal CT cervical spine demonstrating possible osteomyelitis; evaluated by ID; on nafcillin 2 gr with stop date 07/29/21. Upper GI bleed: with coffee-ground emesis and hoarseness with few day hx of nausea/vomiting: GI consulted; on Protonix drip; on schedule for possible EGD on Friday; Intermed help appreciated; ID input and GI input appreciated. Uncontrolled hypertension, uncontrolled diabetes, hypothyroidism, elevated troponin, left foot ulcer Episode of confusion is secondary to metabolic encephalopathy; no evidence of seizure activity; normal EEG; no evidence of stroke/bleed with normal CT head; no evidence of meningitis or encephalitis with unremarkable spinal tap. We will ask internal medicine service for transfer to medicine team as no active neurologic issues. But we will follow with them. Uncontrolled hypertension: on coreg and lisinopril Headaches likely sec to above; improving; to continue iv toradol prn. Known diagnosis of CIDP; has been on IVIG infusion every 2 weeks; following up at [facility]. Care plan is discussed with the patient and her nurse at bedside. Jenifer Jewell MD 06/30/2021 11:45 AM Speech Language Pathology Facility/Department: [facility] 1C STEP DOWN Initial Speech/Language/Cognitive Assessment NAME: Meg Georges : 1965 ADMISSION DATE: 06/28/2021 ADMITTING DIAGNOSIS: has Cellulitis of left finger; Altered mental state; Encephalitis; Encephalopathy; CIDP (chronic inflammatory demyelinating polyneuropathy) (HCC); Sepsis (HCC); Bacteremia; Hypothyroidism; Hypokalemia; Type 2 diabetes mellitus with diabetic polyneuropathy (HCC); and Primary hypertension on their problem list. DATE ONSET: 06/28/2021 Date of Eval: 06/30/2021 Evaluating Therapist: HOLGER Newton RECENT RESULTS CT OF HEAD/MRI: CT Head - 06/28/2021 1. Poorly diagnostic examination due to patient motion. 2. No gross evidence of hemorrhage or mass effect. 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 She was allegedly found confused/AMS outside the SNF she resides at. CTH & CT H/N were unremarkable for acute changes Pt was dx with acute metabolic encephalopathy which is now considered resolved. IMPRESSIONS 1) Dysphonia (loss of voice) x1 month per pt report 2) No overt motor speech disorder at this time 3) +vomitting brownish-liquid 4) Pending order for MBSS d/t pt c/o feeling neck closing when swallowing RECOMMENDATIONS 1) Recommend GI consult d/t vomiting of brownish liquid 2) Hold MBSS pending outcome of GI consultation as globus sensation could be d/t errosion 3) Recommend ENT consultation to examine vocal cords and r/o paresis/paralysis. Pts with CIDP can experience aphonia/dysphonia. 4) ST will follow and complete cognitive assessment as pt's condition allows . Pain: Pain Assessment Pain Assessment: 0-10 Pain Level: 6 Patient's Stated Pain Goal: 0 - No pain Pain Location: Head Pain Orientation: Left,Anterior,Mid,Lower Pain Descriptors: Aching Functional Pain Assessment: Prevents or interferes some active activities and ADLs Pain Type: Acute pain Pain Frequency: Continuous Pain Onset: On-going Non-Pharmaceutical Pain Intervention(s): Environmental changes Response to Pain Intervention: Pain improved but above pain goal Side Effects: No reported side effects Pain Assessment in Advanced Dementia (PAINAD) Non-Pharmaceutical Pain Intervention(s): Environmental changes Response to Pain Intervention: Pain improved but above pain goal Side Effects: No reported side effects Faces, Legs, Activity, Cry, and Consolability (FLACC) Non-Pharmaceutical Pain Intervention(s): Environmental changes Response to Pain Intervention: Pain improved but above pain goal Side Effects: No reported side effects Assessment: Cognitive Diagnosis: Unable to assess as pt is vomiting up brown colored liquid. RN notified Speech Diagnosis: Motor speech skills appear WFL; however pt with dysphonia x1 month. Denies any ENT evaluation Diagnosis: Dysphonia Recommendations: Requires OPERATIONS RECRUITER Intervention: Yes D/C Recommendations: To be determined Referral To: ENT Plan: Goals: Patient/family involved in developing goals and treatment plan: yes Subjective: Previous level of function and limitations: unable to obtain Objective: Oral/Motor Gag: No Impairment Auditory Comprehension Comprehension: Within Functional Limits Expression Primary Mode of Expression: Verbal Cognition: Additional Assessments: Voice Evaluation Vocal Quality: Exceptions to WFL Breath Support: Adequate for speech Aphonic: Yes Dysphonic: Moderate Prognosis: Speech Therapy Prognosis Prognosis: Fair Prognosis Considerations: Age;Severity of Impairments;Medical Diagnosis;Medical Prognosis;Potential;Previous Level of Function;Co-Morbidities Individuals consulted Consulted and agree with results and recommendations: Patient Education: Patient Education Response: Verbalizes understanding;Needs reinforcement Therapy Time: Individual Concurrent Group Co-treatment Time In Time Out Minutes HOLGER Newotn 06/30/2021 8:59 AM Images from the original note were not included. [facility] - Infectious diseases evaluation Progress Note admission date 06/28/2021 reason for consultation: Sepsis with staph bacteremia Impression : Current: MSSA septicemia 06-28-21 CRP elevation Bandemia Acute metabolic encephalopathy- resolved -LP neg CIDP chronic IVIG therapy - immunosuppressed Ulcer on the left foot Allergy to keflex and avelox - tolerates PNC Erosive changes at craniocervical junction which may be related to arthritis or osteomyelitis by CT cervical spine 06-29-21 Other: Hypothyroidism Diabetes mellitus type 2 Essential hypertension Elevated troponin CIDP on IVIG infusions every 2 weeks Discussion / summary of stay / plan of care Recommendations Acute encephalopathy from sepsis - Resolved CSF: No growth MSSA septicemia - Echo look for vegetation BC repeat till neg Nafcillin 2 g q 4 h. Stop date 07-29-21 Neck new pain -1 Mo old Monitor progression by CT cervical spine in a few weeks MRI C spine can not be done because of foreign object in her eyes Infection Control Recommendations [place] Precautions Antimicrobial Stewardship Recommendations Simplification of therapy Targeted therapy History of Present Illness: INITIAL HISTORY: Meg Georges is a 56 y.o.-year-old female who presented to the ED because of altered mental status. Patient is currently admitted under neurology service. Patient presented from a 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 after an episode of confusion overnight where she was found wandering outside her 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. She had CT head done at outside facility which did not show any acute changes. Telestroke was consulted because of the concern with confusion, they recommended transfer to [facility] for MRI of the brain. BC: Staph A (MSSA) and LP neg CRP elevated and WBc up - creat normal 06/29 mentally recovered Neck pain x 1 mo Left sole callus was infected x 2 months ago at the CT She gets her IvIg through a peripheral IV that gets pulled each time - no picc as an outpatient Hoarse x some time wo reason Cough x 1 month CURRENT EVALUATION : 06/30/2021 Interval changes 06/30/2021 Patient Vitals for the past 8 hrs: BP Temp Temp src Pulse Resp SpO2 06/30/21 0403 (!) 167/78 06/30/21 0400 (!) 167/78 98.3 F (36.8 C) Oral 81 19 97 % 06/30/21 0356 (!) 170/78 98.2 F (36.8 C) Oral 86 17 98 % 06/30/21 0000 (!) 166/78 98.4 F (36.9 C) Oral 88 18 97 % 06/29/21 2333 (!) 147/74 98.4 F (36.9 C) Oral 21 06/29/21 2300 100 18 97 % 06/29/21 2244 (!) 139/120 99 23 98 % Afebrile VS stable but HTN Comfortable On room air RR 19 02 sat 97 Tolerating Nafcillin without any difficulties. Abnormality of cranio cervical junction identified by CT cervical spine. Summary of relevant labs: 06/30/2021 Labs: CRP 150.7, procalcitonin 0.66, WBC: 15 Hb 9.9 Plat 300 Micro: Blood Culture: 06-28-21: MSSA x 3 06-30-21: Pending CSF: 06/29 LP -WBC 2 - RBC 1: No growth Imaging: CT Head: 06-28-21: No gross evidence of hemorrhage or mass effect CT Head and neck: 06-28-21: Normal CT cervical spine: 06-29-21: Erosive changes at craniocervical junction which may be related to arthritis or osteomyelitis. CT Abdomen: 06-28-21: Normal . Prior cholecystectomy. CT Chest 06-29-21: 7 mm ground-glass nodule in the posterior right upper lobe. Follow up recommended in 6 months CXR: 06-29-21: No acute airspace disease identified. C I have personally reviewed the past medical history, past surgical history, medications, social history, and family history, and I haveupdated the database accordingly. Allergies: Moxifloxacin, Peg 3350-electrolytes, Tapentadol, Avelox [moxifloxacin hydrochloride], and Cephalexin Review of Systems: Review of Systems Constitutional: Positive for appetite change, fatigue and unexpected weight change. Negative for chills and fever. HENT: Positive for sore throat. Negative for ear pain and rhinorrhea. Hoarse Eyes: Negative for discharge. Respiratory: Positive for cough. Negative for choking, shortness of breath and wheezing. Cardiovascular: Negative for chest pain and leg swelling. Gastrointestinal: Positive for constipation and nausea. Negative for abdominal pain, blood in stool, diarrhea and vomiting. Endocrine: Negative for cold intolerance. Genitourinary: Positive for decreased urine volume. Negative for difficulty urinating and enuresis. Musculoskeletal: Positive for neck pain. Negative for back pain and joint swelling. Skin: Positive for wound. Negative for color change. Rash: left sole under MTS head 1. Allergic/Immunologic: Positive for immunocompromised state. Negative for food allergies. Neurological: Positive for light-headedness and headaches. Negative for syncope. Hematological: Negative for adenopathy. Psychiatric/Behavioral: Negative for agitation. The patient is not nervous/anxious. Physical Examination : Physical Exam Constitutional: General: She is not in acute distress. Appearance: She is not ill-appearing. HENT: Head: Normocephalic and atraumatic. Nose: Nose normal. No rhinorrhea. Mouth/Throat: Mouth: Mucous membranes are moist. Eyes: General: No scleral icterus. Conjunctiva/sclera: Conjunctivae normal. Cardiovascular: Rate and Rhythm: Normal rate and regular rhythm. Heart sounds: Normal heart sounds. No murmur heard. Pulmonary: Effort: Pulmonary effort is normal. No respiratory distress. Breath sounds: Normal breath sounds. No stridor. No wheezing. Abdominal: General: There is no distension. Palpations: Abdomen is soft. There is no mass. Tenderness: There is no abdominal tenderness. There is no guarding. Hernia: No hernia is present. Genitourinary: Comments: Urine chanda Musculoskeletal: General: No swelling. Cervical back: Rigidity present. Right lower leg: No edema. Left lower leg: No edema. Skin: Coloration: Skin is not jaundiced. Findings: Erythema present. No bruising. Neurological: Mental Status: She is alert and oriented to person, place, and time. Mental status is at baseline. Psychiatric: Mood and Affect: Mood normal. Behavior: Behavior normal. Past Medical History: Past Medical History: Diagnosis Date Asthma Cardiac murmur Diabetes mellitus (HCC) GERD (gastroesophageal reflux disease) Hyperlipidemia Hypertension Neuropathy Radiculopathy Spinal stenosis Thyroid disease Past Surgical History: Past Surgical History: Procedure Laterality Date ACHILLES TENDON SURGERY left BACK SURGERY L 4 and 5 1995, 1996 CHOLECYSTECTOMY SHOULDER SURGERY right Medications: insulin glargine 16 Units SubCUTAneous Daily aspirin 81 mg Oral Daily nafcillin 2,000 mg IntraVENous Q4H carvedilol 25 mg Oral BID WC [Held by provider] levothyroxine 112 mcg Oral Daily lisinopril 10 mg Oral Daily sodium chloride flush 5-40 mL IntraVENous 2 times per day enoxaparin 40 mg SubCUTAneous Daily latanoprost 1 drop Both Eyes Nightly insulin lispro 0-12 Units SubCUTAneous TID WC insulin lispro 0-6 Units SubCUTAneous Nightly Social History: Social History Socioeconomic History Marital status: Spouse name: Not on file Number of children: Not on file Years of education: Not on file Highest education level: Not on file Occupational History Not on file Tobacco Use Smoking status: Former Smoker Years: 20.00 Types: Cigarettes Quit date: 10/06/1995 Years since quittin.7 Smokeless tobacco: Never Used Substance and Sexual Activity Alcohol use: No Drug use: No Sexual activity: Not on file Other Topics Concern Not on file Social History Narrative Not on file Social Determinants of Health Financial Resource Strain: Difficulty of Paying Living Expenses: Not on file Food Insecurity: Worried About Running Out of Food in the Last Year: Not on file Ran Out of Food in the Last Year: Not on file Transportation Needs: Lack of Transportation (Medical): Not on file Lack of Transportation (Non-Medical): Not on file Physical Activity: Days of Exercise per Week: Not on file Minutes of Exercise per Session: Not on file Stress: Feeling of Stress : Not on file Social Connections: Frequency of Communication with Friends and Family: Not on file Frequency of Social Gatherings with Friends and Family: Not on file Attends Mosque Services: Not on file Active Member of Clubs or Organizations: Not on file Attends Club or Organization Meetings: Not on file Marital Status: Not on file Intimate Partner Violence: Fear of Current or Ex-Partner: Not on file Emotionally Abused: Not on file Physically Abused: Not on file Sexually Abused: Not on file Housing Stability: Unable to Pay for Housing in the Last Year: Not on file Number of Places Lived in the Last Year: Not on file Unstable Housing in the Last Year: Not on file Family History: Family History Problem Relation Age of Onset Diabetes Mother Cancer Father Medical Decision Making: I have independently reviewed/ordered the following labs: CBC with Differential: Recent Labs 06/28/21121106/29/21 0351 WBC 22.0* 15.0* HGB 10.0* 9.9* HCT 31.0* 30.0* PLT 379 380 LYMPHOPCT 4* 6* MONOPCT 4 3 BMP: Recent Labs 06/28/210 06/28/210 06/28/21121106/29/21 0351 NA 138 < > 135 137 K 3.4* < > 4.0 3.2* CL 95* < > 97* 97* CO2 27 < > 23 25 BUN 25* < > 18 18 CREATININE 0.89 < > 0.70 0.76 MG 1.9 -- -- 2.3 < > = values in this interval not displayed. Hepatic Function Panel: Recent Labs 06/28/210 06/28/21 0410 06/28/21121106/28/21 1417 PROT 8.5* -- 8.0 -- LABALBU 4.0 < > 3.3* 3.6 BILITOT 0.45 -- 0.60 -- ALKPHOS 290* -- 251* -- ALT 25 -- 19 -- AST 16 -- 19 -- < > = values in this interval not displayed. No results for input(s): RPR in the last 72 hours. No results for input(s): HIV in the last 72 hours. No results for input(s): BC in the last 72 hours. Lab Results Component Value Date CREATININE 0.76 06/29/2021 GLUCOSE 221 06/29/2021 GLUCOSE 229 06/04/2011 Detailed results: Thank you for allowing us to participate in the care of this patient.Please call with questions. This note is created with the assistance of a speech recognition program. While intending to generate adocument that actually reflects the content of the visit, the document can still have some errors including those of syntax and sound a like substitutions which may escape proof reading. It such instances, actual meaningcan be extrapolated by contextual diversion. Seth Stokes MD Office: [facility] / office [phone] Dr Crowe phoned fiction writer with new order d/c MRI d/t unknown foreign object in patients eyes. New order for bone scan for cervical spine,look for osteomyelitis. EEG completed Speech Language Pathology [facility] Speech Language Pathology Date: 06/29/2021 Patient Name: Meg Georges Date of : 1965 AGE: 56 y.o. Patient Not Available for Speech Therapy Due to: [] Testing [] Hemodialysis [] Cancelled by RN [] Surgery [] Intubation/Sedation/Pain Medication [] Medical instability [x] Other: Pt with nursing care. Pt is suctioning herself at bedside and is not appropriate for video swallow study at this time. Next scheduled treatment: 06/30 Completed by: Chaitanya Pratt Graduate Clinician ROBBIEHOLGER ROSE, M.A. [facility]-OPERATIONS RECRUITER [facility] Pharmacokinetic Monitoring Service - Vancomycin Meg Georges is a 56 y.o. female starting on vancomycin therapy for sepsis. Pharmacy consulted by Dr. Medina for monitoring and adjustment. Target Concentration: Goal AUC/BECKY 400-600 mg*hr/L Pertinent Laboratory Values: Wt Readings from Last 1 Encounters: 06/28/21 145 lb (65.8 kg) Temp Readings from Last 1 Encounters: 06/29/21 98.3 F (36.8 C) (Oral) Estimated Creatinine Clearance: 73 mL/min (based on SCr of 0.76 mg/dL). Recent Labs 06/28/21 1212 06/29/21 0351 CREATININE 0.70 0.76 WBC 22.0* 15.0* Plan: Based on pharmacokinetic evaluation, will initiate vancomycin with 1250 mg IV x1 followed by 750 mg IV q12h Anticipated AUC of 412 and trough concentration of 12-14 mcg/mL at steady state Pharmacy will continue to monitor patient and adjust therapy as indicated Thank you for the consult, David Donnelly Pharm.D., [place], [facility] 06/29/2021 9:15 AM Neurology Resident Progress Note SUBJECTIVE: This is a 56 y.o. female admitted 06/28/2021 for Stupor [R40.1] Encephalitis [G04.90] Altered mental state [R41.82] This is a follow-up neurology progress note. The patient was seen and examined and the chart was reviewed. There were no acute events overnight. ROS Constitutional: positive for generalized fatigue HENT: No change in vision or hearing, wears reading glasses at baseline Respiratory: No cough, SOB, wheezing. Cardiovascular: No chest pain, palpitations, leg swelling. Gastrointestinal: No nausea, vomiting, diarrhea. Genitourinary: No increa [facility] Work Phone: 07-10-2021 Hospital Discharge instructions Sebas Arnold RN - 07/10/2021 7:52 AM EDT Continuity of Care Form Patient Name: Meg Georges : 1965 Admit date: 06/28/2021 Discharge date: 07/10/2021 Code Status Order: Full Code Advance Directives: Admitting Physician: Silver Carmona MD PCP: Neri Santa Sr, DO Discharging Nurse: Thierry Quiles Hospital Unit/Room#: 0146/0146-01 Discharging Unit Phone Number: [phone] Emergency Contact: Extended Emergency Contact Information Primary Emergency Contact: Hina Thomas [facility] Mobile Relation: Brother/Sister Past Surgical History: Past Surgical History: Procedure Laterality Date ACHILLES TENDON SURGERY left BACK SURGERY L 4 and 5 1995, 1996 CERVICAL FUSION N/A 07/06/2021 POSTERIOR CERVICAL C1 LAMINECTOMY. LEFT C2 RHIZOTOMY, EXPLORATION OF EPIDURAL PHLEGMON performed by Alisia Crump DO at [facility] OR CHOLECYSTECTOMY EYE SURGERY [address] shunt for open angle glaucoma. MRI compatible- device is all silicone LAMINECTOMY 07/06/2021 Posterior C1, LEFT C2 RHIZOTOMY, EXPLORATION OF EPIDURAL PHLEGMON SHOULDER SURGERY right UPPER GASTROINTESTINAL ENDOSCOPY N/A 07/02/2021 EGD ESOPHAGOGASTRODUODENOSCOPY performed by Hari Wagner MD at [facility] Endoscopy Immunization History: There is no immunization history on file for this patient. Active Problems: Patient Active Problem List Diagnosis Code Cellulitis of left finger L03.012 Altered mental state R41.82 Encephalitis G04.90 Encephalopathy G93.40 CIDP (chronic inflammatory demyelinating polyneuropathy) ([facility]) G61.81 Sepsis ([facility]) A41.9 Bacteremia R78.81 Hypothyroidism E03.9 Hypokalemia E87.6 Type 2 diabetes mellitus with diabetic polyneuropathy ([facility]) E11.42 Primary hypertension I10 Upper GI bleed K92.2 Non-intractable vomiting R11.10 Unintentional weight loss R63.4 Acute metabolic encephalopathy G93.41 MSSA (methicillin susceptible Staphylococcus aureus) septicemia ([facility]) A41.01 CRP elevated R79.82 Bandemia D72.825 Allergy to multiple antibiotics Z88.1 Pyogenic inflammation of bone (HCC) M86.9 Acute intractable headache R51.9 Acute osteomyelitis of cervical spine ([facility]) M46.22 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 G06.1 Isolation/Infection: Isolation No Isolation Patient Infection Status Infection Onset Added Last Indicated Last Indicated By Review Planned Expiration Resolved Resolved By None active Resolved COVID-19 (Rule Out) 06/29/21 06/29/21 06/29/21 Respiratory Panel, Molecular, with COVID-19 (Restricted: peds pts or suitable admitted adults) (Ordered) 06/29/21 Eduarda Gordillo RN Negative test COVID-19 (Rule Out) 06/28/21 06/28/21 06/28/21 COVID-19, Rapid (Ordered) 06/28/21 Rule-Out Test Resulted COVID-19 (Rule Out) 02/17/20 02/17/20 02/17/20 COVID-19 (Ordered) 02/18/20 Rule-Out Test Resulted Nurse Assessment: Last Vital Signs: BP (!) 120/58 Pulse 95 Temp 97.6 F (36.4 C) (Oral) Resp 21 Ht 5' 5 (1.651 m) Wt 161 lb 11.2 oz (73.3 kg) LMP 12/02/2011 SpO2 95% BMI 26.91 kg/m Last documented pain score (0-10 scale): Pain Level: 6 Last Weight: Wt Readings from Last 1 Encounters: 07/10/21 161 lb 11.2 oz (73.3 kg) Mental Status: oriented IV Access: - PICC - site {Anatomy; iv placement site:[id number]}, insertion date: 07/10/2021 Nursing Mobility/ADLs: Walking Assisted Transfer Assisted Bathing Assisted Dressing Assisted Toileting Assisted Feeding Assisted Spanish Literature Professor Assisted Med Delivery crushed Wound Care Documentation and Therapy: Wound 07/02/21 Foot Left;Plantar Dry, scabbed. No drainage noted. (Active) Dressing/Treatment Open to air 07/10/21 0400 Wound Assessment Dry;Eschar dry 07/10/21 0400 Drainage Amount None 07/10/21 0400 Odor None 07/10/21 0400 Shannan-wound Assessment Intact 07/10/21 0400 Number of days: 7 Incision 07/06/21 Neck Posterior (Active) Dressing Status Clean;Dry;Intact 07/10/21 0400 Incision Cleansed Not Cleansed 07/06/219 Dressing/Treatment Alginate 07/10/21 0400 Closure Other (Comment) 07/10/21 0400 Incision Assessment Other (Comment) 07/10/21 0400 Drainage Amount None 07/10/21 0400 Odor None 07/10/21 0400 Shannan-incision Assessment Intact 07/10/21 0400 Number of days: 3 Elimination: Continence: Bowel: No Bladder: No Urinary Catheter: None Colostomy/Ileostomy/Ileal Conduit: No Date of Last BM: 07/10/2021 Intake/Output Summary (Last 24 hours) at 07/10/2021 0750 Last data filed at 07/10/2021 0602 Gross per 24 hour Intake 3478.95 ml Output 1090 ml Net 2388.95 ml I/O last 3 completed shifts: In: 9447.3 [P.O.:300; I.V.:7386.3; IV Piggyback:1761] Out: 1944 [Urine:0; Drains:5] Safety Concerns: History of Falls (last 30 days) and At Risk for Falls Impairments/Disabilities: Speech Nutrition Therapy: Current Nutrition Therapy: - Oral Diet: General and Dysphagia 2 mechanically altered Routes of Feeding: Oral Liquids: [place] Thick Liquids Daily Fluid Restriction: no Last Modified Barium Swallow with Video (Video Swallowing Test): not done Treatments at the Time of Hospital Discharge: Respiratory Treatments: NA Oxygen Therapy: is not on home oxygen therapy. Ventilator: - No ventilator support Rehab Therapies: Physical Therapy, Occupational Therapy, and Speech/Language Therapy Weight Bearing Status/Restrictions: No weight bearing restrictions Other Medical Equipment (for information only, NOT a DME order): wheelchair and walker Other Treatments: Detention Assessment Patient's personal belongings (please select all that are sent with patient): Trey RN SIGNATURE: CASE MANAGEMENT/SOCIAL WORK SECTION Inpatient Status Date: Readmission Risk Assessment Score: Readmission Risk Risk of Unplanned Readmission: 23 Discharging to Facility/ Agency [facility] Available Detention Address [address] [place] [facility] [address] Contact Information [phone] Dialysis Facility (if applicable) Name: Address: Dialysis Schedule: Phone: Fax: Hat Presser/Test Preparation Tutor signature: PHYSICIAN SECTION Prognosis: Good Condition at Discharge: Stable Rehab Potential (if transferring to Rehab): Fair Recommended Labs or Other Treatments After Discharge: Continue Nafcillin till 08/20/21. Discontinue lisinopril, monitor bp, if it goes up and patient is able to tolerate, then resume lisinopril 10. check BMP on 07/12/2021. Results to SNF doctor., Follow up with neurology for optimization of gabapentin and depakene. Can resume Aspirin on POD 5 07/11/21. Follow up with Dr. Kevin Quintanilla urology, in one week for management of any persistent urinary retention. Bladder scan every 6 hours and straight cath for postvoid residual more than 400 mL. Follow-up with urology Follow-up with neurosurgery, cervical collar instructions as per neurosurgery Dr Crump Continue antibiotics and follow-up with infectious disease Dr. Crowe Blood sugar checks Premeal's at bedtime and follow-up with SNF physician PT and OT eval and treat Physician Certification: I certify the above information and transfer of Meg Georges is necessary for the continuing treatment of the diagnosis listed and that she requires Detention Facility for less 30 days. Update Admission H&P: No change in H&P PHYSICIAN SIGNATURE: Tami Vega MD - 07/10/2021 - Continue Nafcillin till 08/20/21. Discontinue lisinopril, monitor bp, if it goes up and patient is able to tolerate, follow up on BMP, resume lisinopril 10. Follow up with neurology for optimization of gabapentin and depakene. - Follow up with PCP and neurology - Can resume Aspirin on POD 5 07/11/21 - Follow up with ID as recommended. - Follow up with urology in one week for any urinary retention documented in this encounter [facility]ASEL[facility] CRU[facility] [employer] Phone: 06-28-2021 History of Present illness Narrative Updated sister, Hina. States will be in. This nurse called and spoke with Rachel (nurse) at [facility] to get an updated med list. Rachel states she has no way to send an updated med list because she does not have a printer. This nurse asks for a verbal list and Rachel states I was not here yesterday so I can not tell you that. The only thing I know is she did not take her evening medications because she was vomiting. documented in this encounter [employer] Phone: 05-11-2021 History of Present illness Narrative The patient tolerated the infusion well without any complications. documented in this encounter [facility] 05-01-2021 Instructions Tia Baugh PA-C - 05/01/2021 3:14 PM EDT Doxycycline 100 mg orally twice daily for 7 days Mupirocin ointment applied lightly 3 times daily to the small finger I have contacted Dr. Stanley's office and I am attempting to forward a referral to schedule a follow-up appoint with him as soon as possible. We will send the culture swab out for evaluation to make sure we have you on the appropriate antibiotic. Dr. Stanley's office should be contacting you within the next 24 hours. The following attachments cannot be sent through Care Everywhere.Staph Infection: General Info (Icelandic)Moise (Icelandic)documented in this encounter [facility] 05-01-2021 History of Present illness Narrative PATIENT NAME: Meg Joaquin [facility] [address] [place] [place] [address] DATE OF VISIT: 05/01/2021 DATE OF : 1965 SS: [id number] PROVIDER: FIDE 56 y.o. female to the clinic for complaint of Chief Complaint Patient presents with Hand Injury Burnt RT 5th digit of hand 2 days ago on hot food- now blister has popped-- also has a small laceration on RT thumb x 2+ weeks- pt has neuropathy and it is not healing HPI: 56-year-old female with a history of insulin-dependent diabetes for complaint of 2 issues on the right hand. The first is a burn to the right small finger which occurred 2 days ago while pulling hot food out of a oven. She states that she has significant neuropathy and could not feel it. She states that today she awoke and noted that the majority of the finger was lopez red color without significant edema. On arrival here when she remove the Band-Aid there was a significant amount of purulent material which was oozing from 2 separate areas both on the volar pad of the finger. I did collect a aerobic culture swab and will send this for evaluation. The second problem is a splint on the left thumb, volar pad which she states occurred 2 to 3 weeks ago and has never healed properly. There is significant edema without purulent material or redness. Patient denies any fevers, chills or general sense of illness. ROS: Constitutional: Denies Fever Respiratory: Denies shortness of breath Musculoskeletal: See HPI above. Neurological: Significant neuropathy in hands from diabetes Social History Socioeconomic History Marital status: Tobacco Use Smoking status: Former Smoker Years: 10.00 Quit date: 04/07/1989 Years since quittin.0 Smokeless tobacco: Never Used Tobacco comment: doesn't remember how much she smoked Vaping Use Vaping Use: Never used Substance and Sexual Activity Alcohol use: Yes Comment: rarely Drug use: No Past Medical History: Diagnosis Date Abscess of foot without toes, left 01/26/2019 Asthma Atherosclerosis of [place] arteries of left leg with ulceration of other part of foot (HCC) 03/14/2017 Back problem Bilateral foot-drop 02/01/2016 Callus of foot 03/16/2019 Cataract Cellulitis and abscess of foot excluding toe 09/26/2014 Cellulitis of great toe, right 10/30/2015 Cellulitis of left foot 08/14/2017 Cellulitis of left lower limb 09/01/2015 Cellulitis of right toe 11/15/2015 Cellulitis of second toe of right foot 11/15/2016 Chronic ulcer of great toe of left foot (HCC) 03/27/2015 Closed displaced fracture of first metatarsal bone 02/01/2016 Closed displaced fracture of first metatarsal bone of left foot with routine healing 04/17/2015 Contusion of great toe, right 11/04/2016 Contusion of right foot 11/11/2017 Corns and callosities 03/13/2016 Diabetes mellitus ([facility]) Dystrophic nail 11/15/2016 Foot cramps Foot ulcer ([facility]) 02/25/2019 OTHER PART OF FOOT Fracture of third toe, left, closed 02/15/2016 Fungal toenail infection 11/15/2016 GERD (gastroesophageal reflux disease) Glaucoma both eyes Heart murmur High cholesterol 03/27/2015 Hyperlipidemia Hypertension Ingrown toenail 10/30/2015 Leg cramps Metatarsalgia of both feet 10/07/2016 Neuropathy Non-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 ([facility]) 09/06/2016 Non-pressure chronic ulcer of left lower leg with fat layer exposed ([facility]) 03/28/2017 Non-pressure chronic ulcer of other part of left foot with fat layer exposed (HCC) 08/14/2017 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 involvement without evidence of necrosis ([facility]) 03/14/2017 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) 08/14/2016 Nondisplaced fracture of proximal phalanx of right great toe 09/19/2017 Onychomycosis 12/13/2015 Osteomyelitis ([facility]) 04/23/2019 Peripheral vascular disease ([facility]) 08/17/2019 Pre-ulcerative calluses 08/13/2018 Right foot ulcer ([facility]) 09/26/2014 Shortness of breath Sprain of calcaneofibular ligament of right ankle 12/05/2017 Swelling of both ankles Swelling of both lower extremities Thyroid disorder 03/27/2015 Tinea unguium 08/13/2018 Traumatic closed fracture of phalanx of foot with minimal displacement 08/11/2017 Traumatic closed nondisplaced fracture of phalanx of right foot with delayed healing 09/08/2017 Type 2 diabetes mellitus with diabetic neuropathy ([facility]) 11/11/2017 Diabetic autonomic (poly) neuropathy Type 2 diabetes mellitus with foot ulcer ([facility]) 06/19/2016 Type 2 diabetes, uncontrolled, with peripheral circulatory disorder ([facility]) 03/28/2017 Xerosis cutis 01/17/2016 Family History Problem Relation Age of Onset Diabetes Mother Pancreatic cancer Father Current Outpatient Medications on File Prior to Visit Medication Sig Dispense Refill acetaminophen-codeine (TYLENOL #3) 300-30 mg per tablet every 6 (six) hours as needed. aspirin 325 MG EC tablet Take 1 (one) tablet (325 mg total) by mouth daily. 60 tablet 5 brimonidine (ALPHAGAN) 0.15 % ophthalmic solution Administer 1 drop into the left eye 2 (two) times a day . carvediloL (COREG) 25 MG tablet 2 (two) times a day. dorzolamide-timoloL (COSOPT) 22.3-6.8 mg/mL ophthalmic solution Apply 1 drop to eye 2 (two) times a day . insulin degludec (Tresiba FlexTouch U-100) 100 unit/mL (3 mL) InPn Inject under the skin . insulin lispro 100 unit/mL InPn Use less than 30 units daily with sliding scale. latanoprost (XALATAN) 0.005 % ophthalmic solution Administer 1 drop to both eyes at bedtime. 6 levothyroxine 112 mcg cap daily. MULTIVITAMIN ORAL daily. tiZANidine (ZANAFLEX) 4 MG tablet as needed. [DISCONTINUED] mupirocin (BACTROBAN) 2 % ointment Apply topically 3 (three) times a day Apply to affected area . 30 g 0 Current Facility-Administered Medications on File Prior to Visit Medication Dose Route Frequency Provider Last Rate Last Admin [DISCONTINUED] GENERIC EXTERNAL MEDICATION Generic External Data Provider Allergies Allergen Reactions Keflex [Cephalexin] Itching burning Tapentadol Unknown Avelox [Moxifloxacin] Itching, Swelling, Rash and Other (See Comments) Abdominal pain EXAM: BP 137/88 Pulse 77 Temp 98.3 F (36.8 C) (Tympanic) Resp 16 Wt 70.4 kg (155 lb 1.6 oz) SpO2 97% BMI 25.81 kg/m Primary Assessment: Airway patent. Respirations unlabored, Normal respiratory effort Constitutional: Vital signs reviewed. Well appearing. No distress Psychiatric: Mental status appropriate. Normal affect Skin: Warm and dry. Thorax/ Respiratory: Respiratory effort non-labored. Musculoskeletal: Examination right hand shows superficial sloughing of the distal finger from apparent broken blisters. On the pad of the small finger there are 2 small punctate areas that are oozing purulent material. They have been swabbed and have been sent for aerobic culture. From the DIP joints approximately the finger is a significant erythemic color without significant edema. Examination of the right thumb shows a split in the pad of the thumb which appears to be chronic in nature it is approximately 2-1/2-3 cm in length and is gaping at approximately 3 mm at its central portion. It is not healing appropriately. Neurologic: Alert and Oriented PROCEDURE Procedures RESULTS No results found for this or any previous visit (from the past 168 hour(s)). Diagnosis: The primary encounter diagnosis was Partial thickness burn of single finger of right hand excluding thumb, initial encounter. Diagnoses of Wound infection and Laceration of right thumb, initial encounter were also pertinent to this visit. Plan: 1. Partial thickness burn of single finger of right hand excluding thumb, initial encounter 2. Wound infection 3. Laceration of right thumb, initial encounter No follow-ups on file. ORDERS PLACED THIS VISIT No orders of the defined types were placed in this encounter. MEDICATION LIST AT END OF VISIT Current Outpatient Medications Medication Sig Dispense Refill acetaminophen-codeine (TYLENOL #3) 300-30 mg per tablet every 6 (six) hours as needed. aspirin 325 MG EC tablet Take 1 (one) tablet (325 mg total) by mouth daily. 60 tablet 5 brimonidine (ALPHAGAN) 0.15 % ophthalmic solution Administer 1 drop into the left eye 2 (two) times a day . carvediloL (COREG) 25 MG tablet 2 (two) times a day. dorzolamide-timoloL (COSOPT) 22.3-6.8 mg/mL ophthalmic solution Apply 1 drop to eye 2 (two) times a day . doxycycline hyclate (VIBRAMYCIN) 100 MG capsule Take 1 (one) capsule (100 mg total) by mouth 2 (two) times a day for 7 days . 14 capsule 0 insulin degludec (Tresiba FlexTouch U-100) 100 unit/mL (3 mL) InPn Inject under the skin . insulin lispro 100 unit/mL InPn Use less than 30 units daily with sliding scale. latanoprost (XALATAN) 0.005 % ophthalmic solution Administer 1 drop to both eyes at bedtime. 6 levothyroxine 112 mcg cap daily. MULTIVITAMIN ORAL daily. mupirocin (BACTROBAN) 2 % ointment Apply topically 3 (three) times a day for 7 days . 30 g 0 tiZANidine (ZANAFLEX) 4 MG tablet as needed. No current facility-administered medications for this visit. -Aerobic culture of the [id number] from the small finger of the right hand -Doxycycline 100 mg twice daily for 7 days -Mupirocin ointment to be applied 3 times daily to the affected area and a light layer -I have contacted Dr. Stanley's office in [place] and hoping to schedule a follow-up visit with Dr. Stanley for further evaluation of the patient's hand. Tia Baugh 05/01/2021 documented in this encounter [facility] 04-17-2021 History of Present illness Narrative Left foot wound Patient is a pleasant 56-year-old high-risk diabetic female following up today for plantar left foot ulceration wound. States that she has been compliantly offloading well with her peg assist and cam boot hoping that things are actually well. Physical Vascular: DP PT pulses remain poorly palpable. CFT is fair mild edema. Derm: Plantar subfirst MPJ ulceration today is technically fully epithelialized albeit fragile. No open wounds no gapping no draining no deep nodules. Neuro: Light touch is absent Babinski's is absent. Musculoskeletal: Still with a cavus foot type otherwise ankle subtalar is full and pain-free. Assessment plan: Patient is a pleasant 56-year-old type II diabetic female with substantially high risk of limb loss due to her Chronic ulcerations neuropathy and foot type. At this time she can return to her diabetic shoes with custom inserts. Apply diabetic lotion her foot daily. If this fails to improve her back, 4 weeks can return otherwise follow-up in 3 months to reevaluate. Low medical complexity decision making based on the waxing waning character of her wounds documented in this encounter [facility] 04-12-2021 Note Procedure date: 04/12. Intraocular injection: 1.25 mg Bevacizumab (AVASTIN) 2.5mg/0.1 ML syringe [facility]: 14834-222-29, Lot: [id number], Expiration date: 06/10/2021 Route: Intravitreal, Site: Right Eye Notes Bevacizumab (Avastin) Intraocular Injection Right Eye - OPHTHALMOLOGY PROCEDURE NOTE PROCEDURE PERFORMED BY: Sharon Hernandez MD ENVIRONMENT ARTIST(S): None ATTENDING: Sharon Hernandez MD PROCEDURE DATE: 04/12/2021 PROCEDURE START TIME: 10:47 AM INDICATIONS: Treatment of ICD-10-CM 1. Diabetic macular edema E11.311 ME BEVACIZUMAB SOLN - OD EYE: Right (OD) PROCEDURE GOALS: To preserve or improve vision, reduce retinal swelling, and cause regression of abnormal blood vessels. EBL: None Specimen: None Complications: None CONSENT: Informed consent was obtained prior to the procedure after discussion of the risks, benefits, alternatives, and expected outcomes were discussed with the patient. The consent was placed in the chart. The possibilities of infection, reaction to medication, retinal tear, bleeding, thromboembolic events such as myocardial infarction or cerebral vascular accident, the need for additional procedures, failure to diagnosis a condition, and creating a complication requiring surgery were discussed with the patient. The OFF LABEL use of the drug was discussed with the patient. Additional risks, benefits and alternatives were discussed with the patient. The patient concurred with the proposed plan and signed the consent form, giving informed consent. DOES THIS PROCEDURE REQUIRE A UNIVERSAL PROTOCOL? Yes. [place] Protocol is required. Pre-procedure verification was completed. The patient verified the site and procedure. The consent was confirmed, procedure sites were identified and marked, and a timeout was called before the start of the procedure. ANESTHESIA: lidocaine pledget 4% PROCEDURE DETAILS: The operative eye was prepped with Betadine. Using a single dose sterile syringe the following medication was injected: Avastin (Bevacizumab 1.25 mg/0.05 ml). The intravitreal pars plana injection was placed 3.5-4.0 mm from the limbus. Following the injection the eye was irrigated with sterile saline and an antibiotic drop was instilled. [facility] 04-05-2021 Note Procedure date: 04/05. Intraocular injection: 1.25 mg Bevacizumab (AVASTIN) 2.5mg/0.1 ML syringe ND: 41677-161-88, Lot: [id number], Expiration date: 05/01/2021 Route: Intravitreal, Site: Left Eye Notes Bevacizumab (Avastin) Intraocular Injection Left Eye - OPHTHALMOLOGY PROCEDURE NOTE PROCEDURE PERFORMED BY: Sharon Hernandez MD ENVIRONMENT ARTIST(S): None ATTENDING: Sharon Hernandez MD PROCEDURE DATE: 04/05/2021 PROCEDURE START TIME: 11:15 AM INDICATIONS: Treatment of ICD-10-CM 1. 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 EBL: None Specimen: None Complications: None CONSENT: Informed consent was obtained prior to the procedure after discussion of the risks, benefits, alternatives, and expected outcomes were discussed with the patient. The consent was placed in the chart. The possibilities of infection, reaction to medication, retinal tear, bleeding, thromboembolic events such as myocardial infarction or cerebral vascular accident, the need for additional procedures, failure to diagnosis a condition, and creating a complication requiring surgery were discussed with the patient. The OFF LABEL use of the drug was discussed with the patient. Additional risks, benefits and alternatives were discussed with the patient. The patient concurred with the proposed plan and signed the consent form, giving informed consent. DOES THIS PROCEDURE REQUIRE A UNIVERSAL PROTOCOL? Yes. [place] Protocol is required. Pre-procedure verification was completed. The patient verified the site and procedure. The consent was confirmed, procedure sites were identified and marked, and a timeout was called before the start of the procedure. ANESTHESIA: lidocaine pledget 4% PROCEDURE DETAILS: The operative eye was prepped with Betadine. Using a single dose sterile syringe the following medication was injected: Avastin (Bevacizumab 1.25 mg/0.05 ml). The intravitreal pars plana injection was placed 3.5-4.0 mm from the limbus. Following the injection the eye was irrigated with sterile saline and an antibiotic drop was instilled. [facility] 03-27-2021 History of Present illness Narrative Left foot wound Patient is a pleasant 56-year-old high-risk diabetic female following up today for plantar left foot ulceration wound. States that she has been compliantly offloading well with her peg assist and cam boot hoping that things are actually well. Physical Vascular: DP PT pulses remain poorly palpable. CFT is fair mild edema. Derm: Plantar subfirst MPJ ulceration today is technically fully epithelialized albeit fragile. No open wounds no gapping no draining no deep nodules. Neuro: Light touch is absent Babinski's is absent. Musculoskeletal: Still with a cavus foot type otherwise ankle subtalar is full and pain-free. Assessment plan: Patient is a pleasant 56-year-old type II diabetic female with substantially high risk of limb loss due to her Chronic ulcerations neuropathy and foot type. At this time she can return to her diabetic shoes with custom inserts. Apply diabetic lotion her foot daily. If this fails to improve her back, 4 weeks can return otherwise follow-up in 3 weeks to reevaluate. Low medical complexity decision making based on the waxing waning character of her wounds documented in this encounter [facility] 02-20-2021 Instructions Jef Sierra Jr., DPM - 02/20/2021 10:07 AM EST Continue topical antibiotic ointment and bandaid with padding. documented in this encounter [facility] 02-20-2021 History of Present illness Narrative HPI Chief Complaint Patient presents with Follow-up L foot ulcer - doing better Patient is a pleasant 55-year-old female who comes in today with a plantar left 1st MPJ ulceration, states that she has been doing well but the wound is continued to the bottom of her foot. Past Medical History: Diagnosis Date Abscess of foot without toes, left 01/26/2019 Asthma Atherosclerosis of [place] arteries of left leg with ulceration of other part of foot ([facility]) 03/14/2017 Back problem Bilateral foot-drop 02/01/2016 Callus of foot 03/16/2019 Cataract Cellulitis and abscess of foot excluding toe 09/26/2014 Cellulitis of great toe, right 10/30/2015 Cellulitis of left foot 08/14/2017 Cellulitis of left lower limb 09/01/2015 Cellulitis of right toe 11/15/2015 Cellulitis of second toe of right foot 11/15/2016 Chronic ulcer of great toe of left foot (HCC) 03/27/2015 Closed displaced fracture of first metatarsal bone 02/01/2016 Closed displaced fracture of first metatarsal bone of left foot with routine healing 04/17/2015 Contusion of great toe, right 11/04/2016 Contusion of right foot 11/11/2017 Corns and callosities 03/13/2016 Diabetes mellitus ([facility]) Dystrophic nail 11/15/2016 Foot cramps Foot ulcer ([facility]) 02/25/2019 OTHER PART OF FOOT Fracture of third toe, left, closed 02/15/2016 Fungal toenail infection 11/15/2016 GERD (gastroesophageal reflux disease) Glaucoma both eyes Heart murmur High cholesterol 03/27/2015 Hyperlipidemia Hypertension Ingrown toenail 10/30/2015 Leg cramps Metatarsalgia of both feet 10/07/2016 Neuropathy Non-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 ([facility]) 09/06/2016 Non-pressure chronic ulcer of left lower leg with fat layer exposed ([facility]) 03/28/2017 Non-pressure chronic ulcer of other part of left foot with fat layer exposed ([facility]) 08/14/2017 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 involvement without evidence of necrosis [facility] [facility] 03/14/2017 Non-pressure chronic ulcer of right ankle limited to breakdown of skin ([facility]) 08/14/2016 Nondisplaced fracture of proximal phalanx of right great toe 09/19/2017 Onychomycosis 12/13/2015 Osteomyelitis ([facility]) 04/23/2019 Peripheral vascular disease ([facility]) 08/17/2019 Pre-ulcerative calluses 08/13/2018 Right foot ulcer ([facility]) 09/26/2014 Shortness of breath Sprain of calcaneofibular ligament of right ankle 12/05/2017 Swelling of both ankles Swelling of both lower extremities Thyroid disorder 03/27/2015 Tinea unguium 08/13/2018 Traumatic closed fracture of phalanx of foot with minimal displacement 08/11/2017 Traumatic closed nondisplaced fracture of phalanx of right foot with delayed healing 09/08/2017 Type 2 diabetes mellitus with diabetic neuropathy ([facility]) 11/11/2017 Diabetic autonomic (poly) neuropathy Type 2 diabetes mellitus with foot ulcer ([facility]) 06/19/2016 Type 2 diabetes, uncontrolled, with peripheral circulatory disorder ([facility]) 03/28/2017 Xerosis cutis 01/17/2016 Past Surgical History: Procedure Laterality Date BACK SURGERY 1995;1996 CHOLECYSTECTOMY LAPAROSCOPIC 2018 ROTATOR CUFF REPAIR Bilateral several yrs ago SINUS SURGERY 1993 SKIN GRAFT N/A TOE AMPUTATION Social History Socioeconomic History Marital status: Tobacco Use Smoking status: Former Smoker Years: 10.00 Quit date: 04/07/1989 Years since quittin.8 Smokeless tobacco: Never Used Tobacco comment: doesn't remember how much she smoked Vaping Use Vaping Use: Never used Substance and Sexual Activity Alcohol use: Yes Comment: rarely Drug use: No Review of Systems Constitutional: Negative for chills and fever. Gastrointestinal: Negative for diarrhea, nausea and vomiting. Musculoskeletal: Negative for arthralgias and joint swelling. Skin: Positive for color change and wound. Neurological: Positive for weakness. Physical Exam -Patient is alert and oriented to person place and time Linear and appropriate humor and thought process. Vascular: DP PT pulses are poorly palpable bilaterally. CFT is delayed but intact. Neuro: Light touch is absent Babinski's is absent. Musculoskeletal: Muscle strength is 3-5 worst of the dorsiflexors. Mild discomfort to the great toe though does have profound neuropathy. Derm: Plantar first MPJ ulceration present today at 10 mm x 5 mm x 3 mm depth full-thickness nature to fat. Base is fibrotic does not probe to bone no streaking no lymphangitis no undermining. PImpression/Plan Problem List Items Addressed This Visit None Patient is a pleasant 55-year-old type II diabetic female with plantar left first MPJ ulceration due to her distal peripheral neuropathy, a long-term sequelae of type 2 diabetes mellitus. -The plantar ulceration does indicate debridement. This is to reduce the fibrotic burden and promote granulation tissue. This does come with substantial clear risk including osteomyelitis amputation pain tingling burning scarring infection. Despite this clear and obvious risks she does wish to proceed. No guarantees are implied or made. Procedure: After timeout consent was performed, and alcohol prep, sharp excisional debridement was performed with a 15 blade debriding fibrotic slough and exited full-thickness nature to fat. Post debridement the wound is nearly 100% granular. Offload diligently. -Today can apply ashu gauze and felicita. Keep this clean dry and [facility] -Follow-up in 2 weeks to review. documented in this encounter [facility] 02-14-2021 Note Procedure date: 01/18. Right Eye Clear. Disc findings include normal observations. Vessel findings include normal. Macula findings include clinically significant macular edema. Normal. Interval change is better. Recommendation for management is to continue treatment. Left Eye Clear. Disc findings include normal observations. Vessel findings include normal. Macula findings include clinically significant macular edema. Normal. Interval change is better. Recommendation for management is to continue treatment. [facility] 02-14-2021 Note Procedure date: 01/18. Intraocular injection: 1.25 mg Bevacizumab (AVASTIN) 2.5mg/0.1 ML syringe [facility]: 01373-076-81, Lot: [id number], Expiration date: 03/07/2021 Route: Intravitreal, Site: Right Eye Notes Bevacizumab (Avastin) Intraocular Injection Right Eye - OPHTHALMOLOGY PROCEDURE NOTE PROCEDURE PERFORMED BY: Sharon Hernandez MD ENVIRONMENT ARTIST(S): None ATTENDING: Sharon Hernandez MD PROCEDURE DATE: 02/14/2021 PROCEDURE START TIME: 10:25 AM INDICATIONS: Treatment of ICD-10-CM 1. Diabetic macular edema E11.311 ME BEVACIZUMAB SOLN - OD EYE: Right (OD) PROCEDURE GOALS: To preserve or improve vision, reduce retinal swelling, and cause regression of abnormal blood vessels. EBL: None Specimen: None Complications: None CONSENT: Informed consent was obtained prior to the procedure after discussion of the risks, benefits, alternatives, and expected outcomes were discussed with the patient. The consent was placed in the chart. The possibilities of infection, reaction to medication, retinal tear, bleeding, thromboembolic events such as myocardial infarction or cerebral vascular accident, the need for additional procedures, failure to diagnosis a condition, and creating a complication requiring surgery were discussed with the patient. The OFF LABEL use of the drug was discussed with the patient. Additional risks, benefits and alternatives were discussed with the patient. The patient concurred with the proposed plan and signed the consent form, giving informed consent. DOES THIS PROCEDURE REQUIRE A UNIVERSAL PROTOCOL? Yes. [place] Protocol is required. Pre-procedure verification was completed. The patient verified the site and procedure. The consent was confirmed, procedure sites were identified and marked, and a timeout was called before the start of the procedure. ANESTHESIA: lidocaine pledget 4% PROCEDURE DETAILS: The operative eye was prepped with Betadine. Using a single dose sterile syringe the following medication was injected: Avastin (Bevacizumab 1.25 mg/0.05 ml). The intravitreal pars plana injection was placed 3.5-4.0 mm from the limbus. Following the injection the eye was irrigated with sterile saline and an antibiotic drop was instilled. [facility] 02-12-2021 Note Procedure date: 01/18. Intraocular injection: 1.25 mg Bevacizumab (AVASTIN) 2.5mg/0.1 ML syringe ND: [id number], Lot: [id number], Expiration date: 03/01/2021 Route: Intravitreal, Site: Left Eye Notes Bevacizumab (Avastin) Intraocular Injection Left Eye - OPHTHALMOLOGY PROCEDURE NOTE PROCEDURE PERFORMED BY: Sharon Hernandez MD ENVIRONMENT ARTIST(S): None ATTENDING: Sharon Hernandez MD PROCEDURE DATE: 02/12/2021 PROCEDURE START TIME: 10:46 AM INDICATIONS: Treatment of ICD-10-CM 1. Diabetic macular edema E11.311 bevacizumab 1.25 MG/0.05 ML Solution ME BEVACIZUMAB SOLN - OS ME BEVACIZUMAB SOLN - OS EYE: Left (OS) PROCEDURE GOALS: To preserve or improve vision, reduce retinal swelling, and cause regression of abnormal blood vessels. EBL: None Specimen: None Complications: None CONSENT: Informed consent was obtained prior to the procedure after discussion of the risks, benefits, alternatives, and expected outcomes were discussed with the patient. The consent was placed in the chart. The possibilities of infection, reaction to medication, retinal tear, bleeding, thromboembolic events such as myocardial infarction or cerebral vascular accident, the need for additional procedures, failure to diagnosis a condition, and creating a complication requiring surgery were discussed with the patient. The OFF LABEL use of the drug was discussed with the patient. Additional risks, benefits and alternatives were discussed with the patient. The patient concurred with the proposed plan and signed the consent form, giving informed consent. DOES THIS PROCEDURE REQUIRE A UNIVERSAL PROTOCOL? Yes. [place] Protocol is required. Pre-procedure verification was completed. The patient verified the site and procedure. The consent was confirmed, procedure sites were identified and marked, and a timeout was called before the start of the procedure. ANESTHESIA: lidocaine pledget 4% PROCEDURE DETAILS: The operative eye was prepped with Betadine. Using a single dose sterile syringe the following medication was injected: Avastin (Bevacizumab 1.25 mg/0.05 ml). The intravitreal pars plana injection was placed 3.5-4.0 mm from the limbus. Following the injection the eye was irrigated with sterile saline and an antibiotic drop was instilled. [facility] 2021 History of Present illness Narrative HPI Chief Complaint Patient presents with Wound Check Left foot wound check Patient is a pleasant 55-year-old female who comes in today with a plantar left 1st MPJ ulceration, states that she has been doing well but the wound is continued to the bottom of her foot. Past Medical History: Diagnosis Date Abscess of foot without toes, left 01/26/2019 Asthma Atherosclerosis of [place] arteries of left leg with ulceration of other part of foot (HCC) 03/14/2017 Back problem Bilateral foot-drop 02/01/2016 Callus of foot 03/16/2019 Cataract Cellulitis and abscess of foot excluding toe 09/26/2014 Cellulitis of great toe, right 10/30/2015 Cellulitis of left foot 08/14/2017 Cellulitis of left lower limb 09/01/2015 Cellulitis of right toe 11/15/2015 Cellulitis of second toe of right foot 11/15/2016 Chronic ulcer of great toe of left foot (HCC) 03/27/2015 Closed displaced fracture of first metatarsal bone 02/01/2016 Closed displaced fracture of first metatarsal bone of left foot with routine healing 04/17/2015 Contusion of great toe, right 11/04/2016 Contusion of right foot 11/11/2017 Corns and callosities 03/13/2016 Diabetes mellitus ([facility]) Dystrophic nail 11/15/2016 Foot cramps Foot ulcer ([facility]) 02/25/2019 OTHER PART OF FOOT Fracture of third toe, left, closed 02/15/2016 Fungal toenail infection 11/15/2016 GERD (gastroesophageal reflux disease) Glaucoma both eyes Heart murmur High cholesterol 03/27/2015 Hyperlipidemia Hypertension Ingrown toenail 10/30/2015 Leg cramps Metatarsalgia of both feet 10/07/2016 Neuropathy Non-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 ([facility]) 09/06/2016 Non-pressure chronic ulcer of left lower leg with fat layer exposed ([facility]) 03/28/2017 Non-pressure chronic ulcer of other part of left foot with fat layer exposed ([facility]) 08/14/2017 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 involvement without evidence of necrosis ([facility]) 03/14/2017 Non-pressure chronic ulcer of right ankle limited to breakdown of skin ([facility]) 08/14/2016 Nondisplaced fracture of proximal phalanx of right great toe 09/19/2017 Onychomycosis 12/13/2015 Osteomyelitis ([facility]) 04/23/2019 Peripheral vascular disease ([facility]) 08/17/2019 Pre-ulcerative calluses 08/13/2018 Right foot ulcer ([facility]) 09/26/2014 Shortness of breath Sprain of calcaneofibular ligament of right ankle 12/05/2017 Swelling of both ankles Swelling of both lower extremities Thyroid disorder 03/27/2015 Tinea unguium 08/13/2018 Traumatic closed fracture of phalanx of foot with minimal displacement 08/11/2017 Traumatic closed nondisplaced fracture of phalanx of right foot with delayed healing 09/08/2017 Type 2 diabetes mellitus with diabetic neuropathy ([facility]) 11/11/2017 Diabetic autonomic (poly) neuropathy Type 2 diabetes mellitus with foot ulcer ([facility]) 06/19/2016 Type 2 diabetes, uncontrolled, with peripheral circulatory disorder ([facility]) 03/28/2017 Xerosis cutis 01/17/2016 Past Surgical History: Procedure Laterality Date BACK SURGERY 1995;1996 CHOLECYSTECTOMY LAPAROSCOPIC 2018 ROTATOR CUFF REPAIR Bilateral several yrs ago SINUS SURGERY 1993 SKIN GRAFT N/A TOE AMPUTATION Social History Socioeconomic History Marital status: Tobacco Use Smoking status: Former Smoker Years: 10.00 Quit date: 04/07/1989 Years since quittin.8 Smokeless tobacco: Never Used Tobacco comment: doesn't remember how much she smoked Vaping Use Vaping Use: Never used Substance and Sexual Activity Alcohol use: Yes Comment: rarely Drug use: No Review of Systems Constitutional: Negative for chills and fever. Gastrointestinal: Negative for diarrhea, nausea and vomiting. Musculoskeletal: Negative for arthralgias and joint swelling. Skin: Positive for color change and wound. Neurological: Positive for weakness. Physical Exam -Patient is alert and oriented to person place and time Linear and appropriate humor and thought process. Vascular: DP PT pulses are poorly palpable bilaterally. CFT is delayed but intact. Neuro: Light touch is absent Babinski's is absent. Musculoskeletal: Muscle strength is 3-5 worst of the dorsiflexors. Mild discomfort to the great toe though does have profound neuropathy. Derm: Plantar first MPJ ulceration present today at 15mm x 5 mm x 3 mm depth full-thickness nature to fat. Base is fibrotic does not probe to bone no streaking no lymphangitis no undermining. PImpression/Plan Problem List Items Addressed This Visit None Patient is a pleasant 55-year-old type II diabetic female with plantar left first MPJ ulceration due to her distal peripheral neuropathy, a long-term sequelae of type 2 diabetes mellitus. -The plantar ulceration does indicate debridement. This is to reduce the fibrotic burden and promote granulation tissue. This does come with substantial clear risk including osteomyelitis amputation pain tingling burning scarring infection. Despite this clear and obvious risks she does wish to proceed. No guarantees are implied or made. Procedure: After timeout consent was performed, and alcohol prep, sharp excisional debridement was performed with a 15 blade debriding fibrotic slough and exited full-thickness nature to fat. Post debridement the wound is nearly 100% granular. Offload diligently. -Today can apply ashu gauze and felicita. Keep this clean dry and intact transtion back to [facility] with [facility] -Follow-up in 2 weeks to review. documented in this encounter [facility] 01-30-2021 History of Present illness Narrative HPI Chief Complaint Patient presents with Wound Check Left foot wound Patient is a pleasant 55-year-old female who comes in today with a plantar left 1st MPJ ulceration, states that she has been doing well but the wound is continued to the bottom of her foot. Past Medical History: Diagnosis Date Abscess of foot without toes, left 01/26/2019 Asthma Atherosclerosis of [place] arteries of left leg with ulceration of other part of foot ([facility]) 03/14/2017 Back problem Bilateral foot-drop 02/01/2016 Callus of foot 03/16/2019 Cataract Cellulitis and abscess of foot excluding toe 09/26/2014 Cellulitis of great toe, right 10/30/2015 Cellulitis of left foot 08/14/2017 Cellulitis of left lower limb 09/01/2015 Cellulitis of right toe 11/15/2015 Cellulitis of second toe of right foot 11/15/2016 Chronic ulcer of great toe of left foot ([facility]) 03/27/2015 Closed displaced fracture of first metatarsal bone 02/01/2016 Closed displaced fracture of first metatarsal bone of left foot with routine healing 04/17/2015 Contusion of great toe, right 11/04/2016 Contusion of right foot 11/11/2017 Corns and callosities 03/13/2016 Diabetes mellitus ([facility]) Dystrophic nail 11/15/2016 Foot cramps Foot ulcer ([facility]) 02/25/2019 OTHER PART OF FOOT Fracture of third toe, left, closed 02/15/2016 Fungal toenail infection 11/15/2016 GERD (gastroesophageal reflux disease) Glaucoma both eyes Heart murmur High cholesterol 03/27/2015 Hyperlipidemia Hypertension Ingrown toenail 10/30/2015 Leg cramps Metatarsalgia of both feet 10/07/2016 Neuropathy Non-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 ([facility]) 09/06/2016 Non-pressure chronic ulcer of left lower leg with fat layer exposed ([facility]) 03/28/2017 Non-pressure chronic ulcer of other part of left foot with fat layer exposed ([facility]) 08/14/2017 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 involvement without evidence of necrosis ([facility]) 03/14/2017 Non-pressure chronic ulcer of right ankle limited to breakdown of skin ([facility]) 08/14/2016 Nondisplaced fracture of proximal phalanx of right great toe 09/19/2017 Onychomycosis 12/13/2015 Osteomyelitis ([facility]) 04/23/2019 Peripheral vascular disease ([facility]) 08/17/2019 Pre-ulcerative calluses 08/13/2018 Right foot ulcer (HCC) 09/26/2014 Shortness of breath Sprain of calcaneofibular ligament of right ankle 12/05/2017 Swelling of both ankles Swelling of both lower extremities Thyroid disorder 03/27/2015 Tinea unguium 08/13/2018 Traumatic closed fracture of phalanx of foot with minimal displacement 08/11/2017 Traumatic closed nondisplaced fracture of phalanx of right foot with delayed healing 09/08/2017 Type 2 diabetes mellitus with diabetic neuropathy (HCC) 11/11/2017 Diabetic autonomic (poly) neuropathy Type 2 diabetes mellitus with foot ulcer (HCC) 06/19/2016 Type 2 diabetes, uncontrolled, with peripheral circulatory disorder (HCC) 03/28/2017 Xerosis cutis 01/17/2016 Past Surgical History: Procedure Laterality Date BACK SURGERY 1995;1996 CHOLECYSTECTOMY LAPAROSCOPIC 2018 ROTATOR CUFF REPAIR Bilateral several yrs ago SINUS SURGERY 1993 SKIN GRAFT N/A TOE AMPUTATION Social History Socioeconomic History Marital status: Tobacco Use Smoking status: Former Smoker Years: 10.00 Quit date: 04/07/1989 Years since quittin.8 Smokeless tobacco: Never Used Tobacco comment: doesn't remember how much she smoked Vaping Use Vaping Use: Never used Substance and Sexual Activity Alcohol use: Yes Comment: rarely Drug use: No Review of Systems Constitutional: Negative for chills and fever. Gastrointestinal: Negative for diarrhea, nausea and vomiting. Musculoskeletal: Negative for arthralgias and joint swelling. Skin: Positive for color change and wound. Neurological: Positive for weakness. Physical Exam -Patient is alert and oriented to person place and time Linear and appropriate humor and thought process. Vascular: DP PT pulses are poorly palpable bilaterally. CFT is delayed but intact. Neuro: Light touch is absent Babinski's is absent. Musculoskeletal: Muscle strength is 3-5 worst of the dorsiflexors. Mild discomfort to the great toe though does have profound neuropathy. Derm: Plantar first MPJ ulceration present today at 5 mm x 5 mm x 3 mm depth full-thickness nature to fat. Base is fibrotic does not probe to bone no streaking no lymphangitis no undermining. PImpression/Plan Problem List Items Addressed This Visit Other Foot ulcer (HCC) - Primary Relevant Orders Apply dressing Patient is a pleasant 55-year-old type II diabetic female with plantar left first MPJ ulceration due to her distal peripheral neuropathy, a long-term sequelae of type 2 diabetes mellitus. -The plantar ulceration does indicate debridement. This is to reduce the fibrotic burden and promote granulation tissue. This does come with substantial clear risk including osteomyelitis amputation pain tingling burning scarring infection. Despite this clear and obvious risks she does wish to proceed. No guarantees are implied or made. Procedure: After timeout consent was performed, and alcohol prep, sharp excisional debridement was performed with a 15 blade debriding fibrotic slough and exited full-thickness nature to fat. Post debridement the wound is nearly 100% granular. Offload diligently. -Today can apply ashu gauze and felicita. Keep this clean dry and intact transtion back to [facility] with [facility] -Follow-up in 1 weeks to review. documented in this encounter [facility] 01-30-2021 Instructions eJf Sierra Jr., DPM - 01/30/2021 10:50 AM EST Continue ashu at home documented in this encounter [facility] 01-24-2021 History of Present illness Narrative HPI Chief Complaint Patient presents with Wound Check Left foot wound Patient is a pleasant 55-year-old female who comes in today with a plantar left 1st MPJ ulceration, states that she has been doing well but the wound is continued to the bottom of her foot. Past Medical History: Diagnosis Date Abscess of foot without toes, left 01/26/2019 Asthma Atherosclerosis of [place] arteries of left leg with ulceration of other part of foot (HCC) 03/14/2017 Back problem Bilateral foot-drop 02/01/2016 Callus of foot 03/16/2019 Cataract Cellulitis and abscess of foot excluding toe 09/26/2014 Cellulitis of great toe, right 10/30/2015 Cellulitis of left foot 08/14/2017 Cellulitis of left lower limb 09/01/2015 Cellulitis of right toe 11/15/2015 Cellulitis of second toe of right foot 11/15/2016 Chronic ulcer of great toe of left foot (HCC) 03/27/2015 Closed displaced fracture of first metatarsal bone 02/01/2016 Closed displaced fracture of first metatarsal bone of left foot with routine healing 04/17/2015 Contusion of great toe, right 11/04/2016 Contusion of right foot 11/11/2017 Corns and callosities 03/13/2016 Diabetes mellitus ([facility]) Dystrophic nail 11/15/2016 Foot cramps Foot ulcer ([facility]) 02/25/2019 OTHER PART OF FOOT Fracture of third toe, left, closed 02/15/2016 Fungal toenail infection 11/15/2016 GERD (gastroesophageal reflux disease) Glaucoma both eyes Heart murmur High cholesterol 03/27/2015 Hyperlipidemia Hypertension Ingrown toenail 10/30/2015 Leg cramps Metatarsalgia of both feet 10/07/2016 Neuropathy Non-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 ([facility]) 09/06/2016 Non-pressure chronic ulcer of left lower leg with fat layer exposed ([facility]) 03/28/2017 Non-pressure chronic ulcer of other part of left foot with fat layer exposed ([facility]) 08/14/2017 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 involvement without evidence of necrosis ([facility]) 03/14/2017 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) 08/14/2016 Nondisplaced fracture of proximal phalanx of right great toe 09/19/2017 Onychomycosis 12/13/2015 Osteomyelitis ([facility]) 04/23/2019 Peripheral vascular disease ([facility]) 08/17/2019 Pre-ulcerative calluses 08/13/2018 Right foot ulcer ([facility]) 09/26/2014 Shortness of breath Sprain of calcaneofibular ligament of right ankle 12/05/2017 Swelling of both ankles Swelling of both lower extremities Thyroid disorder 03/27/2015 Tinea unguium 08/13/2018 Traumatic closed fracture of phalanx of foot with minimal displacement 08/11/2017 Traumatic closed nondisplaced fracture of phalanx of right foot with delayed healing 09/08/2017 Type 2 diabetes mellitus with diabetic neuropathy ([facility]) 11/11/2017 Diabetic autonomic (poly) neuropathy Type 2 diabetes mellitus with foot ulcer ([facility]) 06/19/2016 Type 2 diabetes, uncontrolled, with peripheral circulatory disorder ([facility]) 03/28/2017 Xerosis cutis 01/17/2016 Past Surgical History: Procedure Laterality Date BACK SURGERY 1995;1996 CHOLECYSTECTOMY LAPAROSCOPIC 2018 ROTATOR CUFF REPAIR Bilateral several yrs ago SINUS SURGERY 1993 SKIN GRAFT N/A TOE AMPUTATION Social History Socioeconomic History Marital status: Tobacco Use Smoking status: Former Smoker Years: 10.00 Quit date: 04/07/1989 Years since quittin.8 Smokeless tobacco: Never Used Tobacco comment: doesn't remember how much she smoked Vaping Use Vaping Use: Never used Substance and Sexual Activity Alcohol use: Yes Comment: rarely Drug use: No Review of Systems Constitutional: Negative for chills and fever. Gastrointestinal: Negative for diarrhea, nausea and vomiting. Musculoskeletal: Negative for arthralgias and joint swelling. Skin: Positive for color change and wound. Neurological: Positive for weakness. Physical Exam -Patient is alert and oriented to person place and time Linear and appropriate humor and thought process. Vascular: DP PT pulses are poorly palpable bilaterally. CFT is delayed but intact. Neuro: Light touch is absent Babinski's is absent. Musculoskeletal: Muscle strength is 3-5 worst of the dorsiflexors. Mild discomfort to the great toe though does have profound neuropathy. Derm: Plantar first MPJ ulceration present today at 5 mm x 5 mm x 3 mm depth full-thickness nature to fat. Base is fibrotic does not probe to bone no streaking no lymphangitis no undermining. PImpression/Plan Problem List Items Addressed This Visit None Patient is a pleasant 55-year-old type II diabetic female with plantar left first MPJ ulceration due to her distal peripheral neuropathy, a long-term sequelae of type 2 diabetes mellitus. -The plantar ulceration does indicate debridement. This is to reduce the fibrotic burden and promote granulation tissue. This does come with substantial clear risk including osteomyelitis amputation pain tingling burning scarring infection. Despite this clear and obvious risks she does wish to proceed. No guarantees are implied or made. Procedure: After timeout consent was performed, and alcohol prep, sharp excisional debridement was performed with a 15 blade debriding fibrotic slough and exited full-thickness nature to fat. Post debridement the wound is nearly 100% granular. Offload diligently. -Today can apply ashu gauze and felicita. Keep this clean dry and intact -Follow-up in 1 weeks to review. documented in this encounter [facility] 01-16-2021 History of Present illness Narrative HPI Chief Complaint Patient presents with Wound Infection Left foot Nail Care Patient is a pleasant 55-year-old female who comes in today with a plantar left 1st MPJ ulceration, states that she has been doing well but the wound is continued to the bottom of her foot. Past Medical History: Diagnosis Date Abscess of foot without toes, left 01/26/2019 Asthma Atherosclerosis of [place] arteries of left leg with ulceration of other part of foot ([facility]) 03/14/2017 Back problem Bilateral foot-drop 02/01/2016 Callus of foot 03/16/2019 Cataract Cellulitis and abscess of foot excluding toe 09/26/2014 Cellulitis of great toe, right 10/30/2015 Cellulitis of left foot 08/14/2017 Cellulitis of left lower limb 09/01/2015 Cellulitis of right toe 11/15/2015 Cellulitis of second toe of right foot 11/15/2016 Chronic ulcer of great toe of left foot ([facility]) 03/27/2015 Closed displaced fracture of first metatarsal bone 02/01/2016 Closed displaced fracture of first metatarsal bone of left foot with routine healing 04/17/2015 Contusion of great toe, right 11/04/2016 Contusion of right foot 11/11/2017 Corns and callosities 03/13/2016 Diabetes mellitus ([facility]) Dystrophic nail 11/15/2016 Foot cramps Foot ulcer ([facility]) 02/25/2019 OTHER PART OF FOOT Fracture of third toe, left, closed 02/15/2016 Fungal toenail infection 11/15/2016 GERD (gastroesophageal reflux disease) Glaucoma both eyes Heart murmur High cholesterol 03/27/2015 Hyperlipidemia Hypertension Ingrown toenail 10/30/2015 Leg cramps Metatarsalgia of both feet 10/07/2016 Neuropathy Non-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 ([facility]) 09/06/2016 Non-pressure chronic ulcer of left lower leg with fat layer exposed ([facility]) 03/28/2017 Non-pressure chronic ulcer of other part of left foot with fat layer exposed ([facility]) 08/14/2017 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 involvement without evidence of necrosis ([facility]) 03/14/2017 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) 08/14/2016 Nondisplaced fracture of proximal phalanx of right great toe 09/19/2017 Onychomycosis 12/13/2015 Osteomyelitis ([facility]) 04/23/2019 Peripheral vascular disease ([facility]) 08/17/2019 Pre-ulcerative calluses 08/13/2018 Right foot ulcer ([facility]) 09/26/2014 Shortness of breath Sprain of calcaneofibular ligament of right ankle 12/05/2017 Swelling of both ankles Swelling of both lower extremities Thyroid disorder 03/27/2015 Tinea unguium 08/13/2018 Traumatic closed fracture of phalanx of foot with minimal displacement 08/11/2017 Traumatic closed nondisplaced fracture of phalanx of right foot with delayed healing 09/08/2017 Type 2 diabetes mellitus with diabetic neuropathy ([facility]) 11/11/2017 Diabetic autonomic (poly) neuropathy Type 2 diabetes mellitus with foot ulcer ([facility]) 06/19/2016 Type 2 diabetes, uncontrolled, with peripheral circulatory disorder ([facility]) 03/28/2017 Xerosis cutis 01/17/2016 Past Surgical History: Procedure Laterality Date BACK SURGERY 1995;1996 CHOLECYSTECTOMY LAPAROSCOPIC 2018 ROTATOR CUFF REPAIR Bilateral several yrs ago SINUS SURGERY 1993 SKIN GRAFT N/A TOE AMPUTATION Social History Socioeconomic History Marital status: Tobacco Use Smoking status: Former Smoker Years: 10.00 Quit date: 04/07/1989 Years since quittin.8 Smokeless tobacco: Never Used Tobacco comment: doesn't remember how much she smoked Vaping Use Vaping Use: Never used Substance and Sexual Activity Alcohol use: Yes Comment: rarely Drug use: No Review of Systems Constitutional: Negative for chills and fever. Gastrointestinal: Negative for diarrhea, nausea and vomiting. Musculoskeletal: Negative for arthralgias and joint swelling. Skin: Positive for color change and wound. Neurological: Positive for weakness. Physical Exam -Patient is alert and oriented to person place and time Linear and appropriate humor and thought process. Vascular: DP PT pulses are poorly palpable bilaterally. CFT is delayed but intact. Neuro: Light touch is absent Babinski's is absent. Musculoskeletal: Muscle strength is 3-5 worst of the dorsiflexors. Mild discomfort to the great toe though does have profound neuropathy. Derm: Plantar first MPJ ulceration present today at7 mm x 8 mm x 3 mm depth full-thickness nature to fat. Base is fibrotic does not probe to bone no streaking no lymphangitis no undermining. PImpression/Plan Problem List Items Addressed This Visit None Patient is a pleasant 55-year-old type II diabetic female with plantar left first MPJ ulceration due to her distal peripheral neuropathy, a long-term sequelae of type 2 diabetes mellitus. -The plantar ulceration does indicate debridement. This is to reduce the fibrotic burden and promote granulation tissue. This does come with substantial clear risk including osteomyelitis amputation pain tingling burning scarring infection. Despite this clear and obvious risks she does wish to proceed. No guarantees are implied or made. Procedure: After timeout consent was performed, and alcohol prep, sharp excisional debridement was performed with a 15 blade debriding fibrotic slough and exited full-thickness nature to fat. Post debridement the wound is nearly 100% granular. Offload diligently. -Today can apply ashu gauze and felicita. Keep this clean dry and intact -Today can return to cam boot, did reorder a cam boot for her today. -Follow-up in 1 weeks to review. documented in this encounter [facility] 01-16-2021 Instructions Jef Sierra Jr., DPM - 01/16/2021 11:27 AM EST Keep bandage clean dry and intat documented in this encounter [facility] 01-09-2021 History of Present illness Narrative HPI Chief Complaint Patient presents with Wound Check Left foot Patient is a pleasant 55-year-old female who comes in today with a plantar left 1st MPJ ulceration, states that she has been doing well but the wound is continued to the bottom of her foot. Past Medical History: Diagnosis Date Abscess of foot without toes, left 01/26/2019 Asthma Atherosclerosis of [place] arteries of left leg with ulceration of other part of foot (HCC) 03/14/2017 Back problem Bilateral foot-drop 02/01/2016 Callus of foot 03/16/2019 Cataract Cellulitis and abscess of foot excluding toe 09/26/2014 Cellulitis of great toe, right 10/30/2015 Cellulitis of left foot 08/14/2017 Cellulitis of left lower limb 09/01/2015 Cellulitis of right toe 11/15/2015 Cellulitis of second toe of right foot 11/15/2016 Chronic ulcer of great toe of left foot (HCC) 03/27/2015 Closed displaced fracture of first metatarsal bone 02/01/2016 Closed displaced fracture of first metatarsal bone of left foot with routine healing 04/17/2015 Contusion of great toe, right 11/04/2016 Contusion of right foot 11/11/2017 Corns and callosities 03/13/2016 Diabetes mellitus (HCC) Dystrophic nail 11/15/2016 Foot cramps Foot ulcer (HCC) 02/25/2019 OTHER PART OF FOOT Fracture of third toe, left, closed 02/15/2016 Fungal toenail infection 11/15/2016 GERD (gastroesophageal reflux disease) Glaucoma both eyes Heart murmur High cholesterol 03/27/2015 Hyperlipidemia Hypertension Ingrown toenail 10/30/2015 Leg cramps Metatarsalgia of both feet 10/07/2016 Neuropathy Non-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 (HCC) 09/06/2016 Non-pressure chronic ulcer of left lower leg with fat layer exposed (HCC) 03/28/2017 Non-pressure chronic ulcer of other part of left foot with fat layer exposed (HCC) 08/14/2017 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) 03/14/2017 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) 08/14/2016 Nondisplaced fracture of proximal phalanx of right great toe 09/19/2017 Onychomycosis 12/13/2015 Osteomyelitis ([facility]) 04/23/2019 Peripheral vascular disease ([facility]) 08/17/2019 Pre-ulcerative calluses 08/13/2018 Right foot ulcer ([facility]) 09/26/2014 Shortness of breath Sprain of calcaneofibular ligament of right ankle 12/05/2017 Swelling of both ankles Swelling of both lower extremities Thyroid disorder 03/27/2015 Tinea unguium 08/13/2018 Traumatic closed fracture of phalanx of foot with minimal displacement 08/11/2017 Traumatic closed nondisplaced fracture of phalanx of right foot with delayed healing 09/08/2017 Type 2 diabetes mellitus with diabetic neuropathy (HCC) 11/11/2017 Diabetic autonomic (poly) neuropathy Type 2 diabetes mellitus with foot ulcer (HCC) 06/19/2016 Type 2 diabetes, uncontrolled, with peripheral circulatory disorder (HCC) 03/28/2017 Xerosis cutis 01/17/2016 Past Surgical History: Procedure Laterality Date BACK SURGERY 1995;1996 CHOLECYSTECTOMY LAPAROSCOPIC 2018 ROTATOR CUFF REPAIR Bilateral several yrs ago SINUS SURGERY 1993 SKIN GRAFT N/A TOE AMPUTATION Social History Socioeconomic History Marital status: Tobacco Use Smoking status: Former Smoker Years: 10.00 Quit date: 04/07/1989 Years since quittin.7 Smokeless tobacco: Never Used Tobacco comment: doesn't remember how much she smoked Vaping Use Vaping Use: Never used Substance and Sexual Activity Alcohol use: Yes Comment: rarely Drug use: No Review of Systems Constitutional: Negative for chills and fever. Gastrointestinal: Negative for diarrhea, nausea and vomiting. Musculoskeletal: Negative for arthralgias and joint swelling. Skin: Positive for color change and wound. Neurological: Positive for weakness. Physical Exam -Patient is alert and oriented to person place and time Linear and appropriate humor and thought process. Vascular: DP PT pulses are poorly palpable bilaterally. CFT is delayed but intact. Neuro: Light touch is absent Babinski's is absent. Musculoskeletal: Muscle strength is 3-5 worst of the dorsiflexors. Mild discomfort to the great toe though does have profound neuropathy. Derm: Plantar first MPJ ulceration present today at 9 mm x 8 mm x 3 mm depth full-thickness nature to fat. Base is fibrotic does not probe to bone no streaking no lymphangitis no undermining. PImpression/Plan Problem List Items Addressed This Visit Other Foot ulcer (HCC) - Primary Patient is a pleasant 55-year-old type II diabetic female with plantar left first MPJ ulceration due to her distal peripheral neuropathy, a long-term sequelae of type 2 diabetes mellitus. -The plantar ulceration does indicate debridement. This is to reduce the fibrotic burden and promote granulation tissue. This does come with substantial clear risk including osteomyelitis amputation pain tingling burning scarring infection. Despite this clear and obvious risks she does wish to proceed. No guarantees are implied or made. Procedure: After timeout consent was performed, and alcohol prep, sharp excisional debridement was performed with a 15 blade debriding fibrotic slough and exited full-thickness nature to fat. Post debridement the wound is nearly 100% granular. Offload diligently. -Today can apply ashu gauze and felicita. Keep this clean dry and intact -Today can return to cam boot, did reorder a cam boot for her today. -Follow-up in 1 weeks to review. documented in this encounter [facility] 01-09-2021 Instructions Jef Sierra Jr., DPM - 01/09/2021 8:49 AM EST Keep bandage clean dry and intact documented in this encounter [facility] 01-02-2021 Instructions Jef Sierra Jr., DPM - 01/02/2021 9:19 AM EST Keep bandages clean dry and intact for week documented in this encounter [facility] 01-02-2021 History of Present illness Narrative HPI Chief Complaint Patient presents with Wound Check Left foot Patient is a pleasant 55-year-old female who comes in today with a plantar left 1st MPJ ulceration, states that she has been doing well but the wound is continued to the bottom of her foot. Past Medical History: Diagnosis Date Abscess of foot without toes, left 01/26/2019 Asthma Atherosclerosis of [place] arteries of left leg with ulceration of other part of foot ([facility]) 03/14/2017 Back problem Bilateral foot-drop 02/01/2016 Callus of foot 03/16/2019 Cataract Cellulitis and abscess of foot excluding toe 09/26/2014 Cellulitis of great toe, right 10/30/2015 Cellulitis of left foot 08/14/2017 Cellulitis of left lower limb 09/01/2015 Cellulitis of right toe 11/15/2015 Cellulitis of second toe of right foot 11/15/2016 Chronic ulcer of great toe of left foot (HCC) 03/27/2015 Closed displaced fracture of first metatarsal bone 02/01/2016 Closed displaced fracture of first metatarsal bone of left foot with routine healing 04/17/2015 Contusion of great toe, right 11/04/2016 Contusion of right foot 11/11/2017 Corns and callosities 03/13/2016 Diabetes mellitus ([facility]) Dystrophic nail 11/15/2016 Foot cramps Foot ulcer ([facility]) 02/25/2019 OTHER PART OF FOOT Fracture of third toe, left, closed 02/15/2016 Fungal toenail infection 11/15/2016 GERD (gastroesophageal reflux disease) Glaucoma both eyes Heart murmur High cholesterol 03/27/2015 Hyperlipidemia Hypertension Ingrown toenail 10/30/2015 Leg cramps Metatarsalgia of both feet 10/07/2016 Neuropathy Non-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 (HCC) 09/06/2016 Non-pressure chronic ulcer of left lower leg with fat layer exposed ([facility]) 03/28/2017 Non-pressure chronic ulcer of other part of left foot with fat layer exposed (HCC) 08/14/2017 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 involvement without evidence of necrosis ([facility]) 03/14/2017 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) 08/14/2016 Nondisplaced fracture of proximal phalanx of right great toe 09/19/2017 Onychomycosis 12/13/2015 Osteomyelitis ([facility]) 04/23/2019 Peripheral vascular disease ([facility]) 08/17/2019 Pre-ulcerative calluses 08/13/2018 Right foot ulcer ([facility]) 09/26/2014 Shortness of breath Sprain of calcaneofibular ligament of right ankle 12/05/2017 Swelling of both ankles Swelling of both lower extremities Thyroid disorder 03/27/2015 Tinea unguium 08/13/2018 Traumatic closed fracture of phalanx of foot with minimal displacement 08/11/2017 Traumatic closed nondisplaced fracture of phalanx of right foot with delayed healing 09/08/2017 Type 2 diabetes mellitus with diabetic neuropathy (HCC) 11/11/2017 Diabetic autonomic (poly) neuropathy Type 2 diabetes mellitus with foot ulcer ([facility]) 06/19/2016 Type 2 diabetes, uncontrolled, with peripheral circulatory disorder ([facility]) 03/28/2017 Xerosis cutis 01/17/2016 Past Surgical History: Procedure Laterality Date BACK SURGERY 1995;1996 CHOLECYSTECTOMY LAPAROSCOPIC 2018 ROTATOR CUFF REPAIR Bilateral several yrs ago SINUS SURGERY 1993 SKIN GRAFT N/A TOE AMPUTATION Social History Socioeconomic History Marital status: Tobacco Use Smoking status: Former Smoker Years: 10.00 Quit date: 04/07/1989 Years since quittin.7 Smokeless tobacco: Never Used Tobacco comment: doesn't remember how much she smoked Vaping Use Vaping Use: Never used Substance and Sexual Activity Alcohol use: Yes Comment: rarely Drug use: No Review of Systems Constitutional: Negative for chills and fever. Gastrointestinal: Negative for diarrhea, nausea and vomiting. Musculoskeletal: Negative for arthralgias and joint swelling. Skin: Positive for color change and wound. Neurological: Positive for weakness. Physical Exam -Patient is alert and oriented to person place and time Linear and appropriate humor and thought process. Vascular: DP PT pulses are poorly palpable bilaterally. CFT is delayed but intact. Neuro: Light touch is absent Babinski's is absent. Musculoskeletal: Muscle strength is 3-5 worst of the dorsiflexors. Mild discomfort to the great toe though does have profound neuropathy. Derm: Plantar first MPJ ulceration present today at 10 mm x 8 mm x 3 mm depth full-thickness nature to fat. Base is fibrotic does not probe to bone no streaking no lymphangitis no undermining. PImpression/Plan Problem List Items Addressed This Visit None Patient is a pleasant 55-year-old type II diabetic female with plantar left first MPJ ulceration due to her distal peripheral neuropathy, a long-term sequelae of type 2 diabetes mellitus. -The plantar ulceration does indicate debridement. This is to reduce the fibrotic burden and promote granulation tissue. This does come with substantial clear risk including osteomyelitis amputation pain tingling burning scarring infection. Despite this clear and obvious risks she does wish to proceed. No guarantees are implied or made. Procedure: After timeout consent was performed, and alcohol prep, sharp excisional debridement was performed with a 15 blade debriding fibrotic slough and exited full-thickness nature to fat. Post debridement the wound is nearly 100% granular. Offload diligently. -Today can apply ashu gauze and felicita. Keep this clean dry and intact -Today can return to cam boot, did reorder a cam boot for her today. -Follow-up in 1 weeks to review. documented in this encounter [facility] 12-27-2020 Note Procedure date: 12/18. Intraocular injection: 1.25 mg Bevacizumab (AVASTIN) 2.5mg/0.1 ML syringe [facility]: 15574-170-12, Lot: [id number], Expiration date: 12/29/2020 Route: Intravitreal, Site: Left Eye Notes Bevacizumab (Avastin) Intraocular Injection Left Eye - OPHTHALMOLOGY PROCEDURE NOTE PROCEDURE PERFORMED BY: Sharon Hernandez MD ENVIRONMENT ARTIST(S): None ATTENDING: Sharon Hernandez MD PROCEDURE DATE: 12/27/2020 PROCEDURE START TIME: 10:17 AM INDICATIONS: Treatment of ICD-10-CM 1. Diabetic macular edema E11.311 OCT/HRT MAC[place]A OU FUNDUS PHOTOGRAPHY-OU ME BEVACIZUMAB SOLN - OS ME BEVACIZUMAB SOLN - OS CANCELED: ME BEVACIZUMAB SOLN - OD EYE: Left (OS) PROCEDURE GOALS: To preserve or improve vision, reduce retinal swelling, and cause regression of abnormal blood vessels. EBL: None Specimen: None Complications: None CONSENT: Informed consent was obtained prior to the procedure after discussion of the risks, benefits, alternatives, and expected outcomes were discussed with the patient. The consent was placed in the chart. The possibilities of infection, reaction to medication, retinal tear, bleeding, thromboembolic events such as myocardial infarction or cerebral vascular accident, the need for additional procedures, failure to diagnosis a condition, and creating a complication requiring surgery were discussed with the patient. The OFF LABEL use of the drug was discussed with the patient. Additional risks, benefits and alternatives were discussed with the patient. The patient concurred with the proposed plan and signed the consent form, giving informed consent. DOES THIS PROCEDURE REQUIRE A UNIVERSAL PROTOCOL? Yes. [place] Protocol is required. Pre-procedure verification was completed. The patient verified the site and procedure. The consent was confirmed, procedure sites were identified and marked, and a timeout was called before the start of the procedure. ANESTHESIA: topical proparacaine/tetracaine and lidocaine pledget 4% PROCEDURE DETAILS: The operative eye was prepped with Betadine. Using a single dose sterile syringe the following medication was injected: Avastin (Bevacizumab 1.25 mg/0.05 ml). The intravitreal pars plana injection was placed 3.5-4.0 mm from the limbus. Following the injection the eye was irrigated with sterile saline and an antibiotic drop was instilled. [facility] 12-27-2020 Note Procedure date: 12/18. Right Eye Clear. Disc findings include normal observations. Vessel findings include normal. Macula findings include clinically significant macular edema. Normal. Interval change is better. Recommendation for management is to continue treatment. Left Eye Clear. Disc findings include normal observations. Vessel findings include normal. Macula findings include clinically significant macular edema. Normal. Interval change is better. Recommendation for management is to continue treatment. [facility] 12-19-2020 Instructions Jef Sierra Jr., DPM - 12/19/2020 11:28 AM EDT Keep bandage clean dry and intact documented in this encounter [facility] 12-19-2020 History of Present illness Narrative HPI Chief Complaint Patient presents with Follow-up L foot ulcer Patient is a pleasant 55-year-old female who comes in today with a plantar left 1st MPJ ulceration, states that she has been doing well but the wound is continued to the bottom of her foot. Past Medical History: Diagnosis Date Abscess of foot without toes, left 01/26/2019 Asthma Atherosclerosis of [place] arteries of left leg with ulceration of other part of foot (HCC) 03/14/2017 Back problem Bilateral foot-drop 02/01/2016 Callus of foot 03/16/2019 Cataract Cellulitis and abscess of foot excluding toe 09/26/2014 Cellulitis of great toe, right 10/30/2015 Cellulitis of left foot 08/14/2017 Cellulitis of left lower limb 09/01/2015 Cellulitis of right toe 11/15/2015 Cellulitis of second toe of right foot 11/15/2016 Chronic ulcer of great toe of left foot (HCC) 03/27/2015 Closed displaced fracture of first metatarsal bone 02/01/2016 Closed displaced fracture of first metatarsal bone of left foot with routine healing 04/17/2015 Contusion of great toe, right 11/04/2016 Contusion of right foot 11/11/2017 Corns and callosities 03/13/2016 Diabetes mellitus (HCC) Dystrophic nail 11/15/2016 Foot cramps Foot ulcer (HCC) 02/25/2019 OTHER PART OF FOOT Fracture of third toe, left, closed 02/15/2016 Fungal toenail infection 11/15/2016 GERD (gastroesophageal reflux disease) Glaucoma both eyes Heart murmur High cholesterol 03/27/2015 Hyperlipidemia Hypertension Ingrown toenail 10/30/2015 Leg cramps Metatarsalgia of both feet 10/07/2016 Neuropathy Non-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 ([facility]) 09/06/2016 Non-pressure chronic ulcer of left lower leg with fat layer exposed ([facility]) 03/28/2017 Non-pressure chronic ulcer of other part of left foot with fat layer exposed ([facility]) 08/14/2017 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 involvement without evidence of necrosis ([facility]) 03/14/2017 Non-pressure chronic ulcer of right ankle limited to breakdown of skin ([facility]) 08/14/2016 Nondisplaced fracture of proximal phalanx of right great toe 09/19/2017 Onychomycosis 12/13/2015 Osteomyelitis ([facility]) 04/23/2019 Peripheral vascular disease ([facility]) 08/17/2019 Pre-ulcerative calluses 08/13/2018 Right foot ulcer ([facility]) 09/26/2014 Shortness of breath Sprain of calcaneofibular ligament of right ankle 12/05/2017 Swelling of both ankles Swelling of both lower extremities Thyroid disorder 03/27/2015 Tinea unguium 08/13/2018 Traumatic closed fracture of phalanx of foot with minimal displacement 08/11/2017 Traumatic closed nondisplaced fracture of phalanx of right foot with delayed healing 09/08/2017 Type 2 diabetes mellitus with diabetic neuropathy ([facility]) 11/11/2017 Diabetic autonomic (poly) neuropathy Type 2 diabetes mellitus with foot ulcer ([facility]) 06/19/2016 Type 2 diabetes, uncontrolled, with peripheral circulatory disorder ([facility]) 03/28/2017 Xerosis cutis 01/17/2016 Past Surgical History: Procedure Laterality Date BACK SURGERY 1995;1996 CHOLECYSTECTOMY LAPAROSCOPIC 2018 ROTATOR CUFF REPAIR Bilateral several yrs ago SINUS SURGERY 1994 SKIN GRAFT N/A TOE AMPUTATION Social History Socioeconomic History Marital status: Spouse name: Not on file Number of children: Not on file Years of education: Not on file Highest education level: Not on file Occupational History Not on file Tobacco Use Smoking status: Former Smoker Years: 10. Quit date: 04/07/1989 Years since quittin.7 Smokeless tobacco: Never Used Tobacco comment: doesn't remember how much she smoked Vaping Use Vaping Use: Never used Substance and Sexual Activity Alcohol use: Yes Comment: rarely Drug use: No Sexual activity: Not on file Other Topics Concern Not on file Social History Narrative Not on file Social Determinants of Health Financial Resource Strain: Difficulty of Paying Living Expenses: Not on file Food Insecurity: Worried About Running Out of Food in the Last Year: Not on file Ran Out of Food in the Last Year: Not on file Transportation Needs: Lack of Transportation (Medical): Not on file Lack of Transportation (Non-Medical): Not on file Physical Activity: Days of Exercise per Week: Not on file Minutes of Exercise per Session: Not on file Stress: Feeling of Stress : Not on file Social Connections: Frequency of Communication with Friends and Family: Not on file Frequency of Social Gatherings with Friends and Family: Not on file Attends Mosque Services: Not on file Active Member of Clubs or Organizations: Not on file Attends Club or Organization Meetings: Not on file Marital Status: Not on file Housing Stability: Unable to Pay for Housing in the Last Year: Not on file Number of Places Lived in the Last Year: Not on file Unstable Housing in the Last Year: Not on file Review of Systems Constitutional: Negative for chills and fever. Gastrointestinal: Negative for diarrhea, nausea and vomiting. Musculoskeletal: Negative for arthralgias and joint swelling. Skin: Positive for color change and wound. Neurological: Positive for weakness. Physical Exam -Patient is alert and oriented to person place and time Linear and appropriate humor and thought process. Vascular: DP PT pulses are poorly palpable bilaterally. CFT is delayed but intact. Neuro: Light touch is absent Babinski's is absent. Musculoskeletal: Muscle strength is 3-5 worst of the dorsiflexors. Mild discomfort to the great toe though does have profound neuropathy. Derm: Plantar first MPJ ulceration present today at 10 mm x 8 mm x 3 mm depth full-thickness nature to fat. Base is fibrotic does not probe to bone no streaking no lymphangitis no undermining. PImpression/Plan Problem List Items Addressed This Visit None Patient is a pleasant 55-year-old type II diabetic female with plantar left first MPJ ulceration due to her distal peripheral neuropathy, a long-term sequelae of type 2 diabetes mellitus. -The plantar ulceration does indicate debridement. This is to reduce the fibrotic burden and promote granulation tissue. This does come with substantial clear risk including osteomyelitis amputation pain tingling burning scarring infection. Despite this clear and obvious risks she does wish to proceed. No guarantees are implied or made. Procedure: After timeout consent was performed, and alcohol prep, sharp excisional debridement was performed with a 15 blade debriding fibrotic slough and exited full-thickness nature to fat. Post debridement the wound is nearly 100% granular. Offload diligently. -Today can apply ashu gauze and felicita. Keep this clean dry and intact -Today can return to cam boot, did reorder a cam boot for her today. -Follow-up in 1 weeks to review. documented in this encounter [facility] 12-13-2020 Note Procedure date: 11/18. Right Eye Clear. Disc findings include normal observations. Vessel findings include normal. Macula findings include clinically significant macular edema. Normal. Interval change is same. Recommendation for management is to continue treatment. Left Eye Clear. Disc findings include normal observations. Vessel findings include normal. Macula findings include clinically significant macular edema. Normal. Interval change is same. Recommendation for management is to continue treatment. [facility] 12-13-2020 Note Procedure date: 11/18. Right Eye Quality was good. Findings include subretinal fluid. Interval change is same. Recommendation for management is to continue treatment. Left Eye Quality was good. Findings include subretinal fluid. Interval change is same. Recommendation for management is to continue treatment. [facility] 12-13-2020 Note Procedure date: 11/18. Intraocular injection: 1.25 mg Bevacizumab (AVASTIN) 2.5mg/0.1 ML syringe [facility]: 43316-560-93, Lot: [id number], Expiration date: 12/26/2020 Route: Intravitreal, Site: Right Eye Notes Bevacizumab (Avastin) Intraocular Injection Right Eye - OPHTHALMOLOGY PROCEDURE NOTE PROCEDURE PERFORMED BY: Sharon Hernandez MD ENVIRONMENT ARTIST(S): None ATTENDING: Sharon Hernandez MD PROCEDURE DATE: 12/13/2020 PROCEDURE START TIME: 10:05 AM INDICATIONS: Treatment of ICD-10-CM 1. Diabetic macular edema E11.311 bevacizumab 1.25 MG/0.05 ML Solution ME BEVACIZUMAB SOLN - OD OCT/HRT MACULA OU FUNDUS PHOTOGRAPHY-OU ME BEVACIZUMAB SOLN - OD OCT/HRT MACULA OU FUNDUS PHOTOGRAPHY-OU EYE: Right (OD) PROCEDURE GOALS: To preserve or improve vision, reduce retinal swelling, and cause regression of abnormal blood vessels. EBL: None Specimen: None Complications: None CONSENT: Informed consent was obtained prior to the procedure after discussion of the risks, benefits, alternatives, and expected outcomes were discussed with the patient. The consent was placed in the chart. The possibilities of infection, reaction to medication, retinal tear, bleeding, thromboembolic events such as myocardial infarction or cerebral vascular accident, the need for additional procedures, failure to diagnosis a condition, and creating a complication requiring surgery were discussed with the patient. The OFF LABEL use of the drug was discussed with the patient. Additional risks, benefits and alternatives were discussed with the patient. The patient concurred with the proposed plan and signed the consent form, giving informed consent. DOES THIS PROCEDURE REQUIRE A UNIVERSAL PROTOCOL? Yes. [place] Protocol is required. Pre-procedure verification was completed. The patient verified the site and procedure. The consent was confirmed, procedure sites were identified and marked, and a timeout was called before the start of the procedure. ANESTHESIA: lidocaine pledget 4% PROCEDURE DETAILS: The operative eye was prepped with Betadine. Using a single dose sterile syringe the following medication was injected: Avastin (Bevacizumab 1.25 mg/0.05 ml). The intravitreal pars plana injection was placed 3.5-4.0 mm from the limbus. Following the injection the eye was irrigated with sterile saline and an antibiotic drop was instilled. [facility] 10-17-2020 History of Present illness Narrative Left foot ulceration Patient is a pleasant 55-year-old high-risk diabetic female who comes in today with a new and acute on chronic left foot ulcer. States that she is worried about it states is open. No trauma. Physical Vascular: DP PT pulses are poorly preserved. CFT is mild no edema today. Derm: No open wounds to the right foot. Plantar first MPJ is with superficial ulceration does not probe to bone no undermining no fluctuance no crepitation. Additionally no purulence no streaking no lymphangitis. Neuro: Light touch is absent Babinski's is absent. Musculoskeletal: Muscle strength is 5/5 with fair tone, can easily wiggle toes without any clicking or catching. Assessment and plan: Patient is a pleasant 55-year-old female with acute on chronic plantar left foot ulceration and concern for mild osteomyelitis. -Did get labs to assess including a CBC with differential plus a ESR. Follow-up 1 month on for labs. Offload diligently apply triple antibiotic ointment. Low medical complexity decision making due to the acute on chronic nature of her ulceration as well as elevated morbidity. documented in this encounter [facility] 10-11-2020 Note Procedure date: 10/10. Right Eye Quality was good. Interval change is same. Recommendation for management is to change treatment. Left Eye Quality was poor. Interval change is same. Recommendation for management is to change treatment. Notes OD: inferior thinning, stable to 2018 OS: polar thinning, stable to 2018 GCC: OD: stable inferotemporal thinning OS: complicated by poor quality scan due to DME RADIOLOGY 10-10-2020 History of Present illness Narrative Assessment/Plan: 1. POAG OU, severe OU Current Therapy: cosopt bid OU, 250 mg diamox bid History of Therapy: Pharm: brim OS, no PGA due to DME OU Laser: none Surgery: 02/23/20 tube shunt (baerveldt OS) Tmax: OD=27; OS=30 Last RNFL: 10/14/2018 Last HVF: 12/31/2019 - complex history with significant diabetic changes OU - OK with delay of surgery until after injections, patient would like to see improvement in OS before scheduling OD shunt - continue current medical management - IOP up OU today, too high OD, ok OS - add rhopressa at bedtime OU - f/u 4 weeks: IOP check then pre-op OD I had a detailed conversation with the patient today to discuss the disease process and natural progression of glaucoma. I emphasized the importance of frequent monitoring and control of intraocular pressure to reduce the risk of diease progession and resultant irreversible visual loss. The patient voiced understanding. 2. DME OU - management with Dr. Hernandez - IV injection recently OS with Dr. Hernandez PLAN: Return: 4 weeks: IOP check then pre-op OD Written instructions provided, all questions answered Olga Lidia Matos M.D. Consular Officer of Ophthalmology Glaucoma Division [facility] Department of Ophthalmology and Visual Science Chief Complaint Patient presents with Glaucoma Follow-up HPI 55 y.o. patient with POAG presents for a 3 month IOP check and RNFL. - the patient reports her vision is unchanged - the patient denies floaters, flashes, and all other symptoms cosopt OU Bid - 7:00 pm Timolol ou BID - 7:00 pm Last edited by Trinity Joseph on 10/10/2020 1:41 PM. (History) HPI: Meg Georges is a 55 y.o. female who presents for a repeat glaucoma evaluation and IOP check. Patient denies any eye pain, recently had injection OS with Dr. Hernandez. Additional details from [facility] HPI reviewed and I agree with documentation Ocular Medications: 10/10/2020 Exam: CCT: KO=435 m; ZA=664 m IOP: OD: 25, OS: 16, 10/10/2020 Slit Lamp Exam: OD NL Comments OS NL Comments Extrnl Normal Extrnl Normal L/L Normal L/L Normal Conj White and quiet Conj well covered, supero temporal bleb, resolving ALEX from recent intravitreal injection K Clear K Clear AC Deep and quiet AC Deep, ST tube in good position Iris Round and reactive Iris Round, No NVI Lens PC IOL open Lens Posterior chamber intraocular lens, mild Posterior capsular opacification Ant Vit Normal Ant Vit Normal Fundus: Optic Nerve & Retina: OD NL Comments OS NL Comments Disc intact rim Disc + dense inf notch, no NVD, no disc heme C/D Ratio 0.85 C/D Ratio 0.9v x 0.75h Macula Microaneurysms DME Macula scattered MA, significant DME Vessel s Vessel s Periph Periph Ancillary Tests: REASON FOR VISIT Meg Georges presents to clinic today for a Follow-Up Patient visit. Chief Complaint Glaucoma; Follow-up HISTORY OF PRESENT ILLNESS HPI 55 y.o. patient with POAG presents for a 3 month IOP check and RNFL. - the patient reports her vision is unchanged - the patient denies floaters, flashes, and all other symptoms cosopt OU Bid - 7:00 pm Timolol ou BID - 7:00 pm Last edited by Trinity Joseph on 10/10/2020 1:41 PM. (History) Allergies, medications & history reviewed & updated by Trinity Joseph REVIEW OF SYSTEMS Review of Systems HENT: Negative. Eyes: Positive for redness. Respiratory: Negative. Allergic/Immunologic: Negative. Neurological: Positive for numbness and headaches. 10 minutes of face to face time was spent with patient performing the communications engineering technician work of this visit. documented in this encounter [facility] 10-10-2020 Instructions Olga Lidia Matos MD - 10/10/2020 1:45 PM EDT Right Eye: Dorzolamide/Timolol 2 times a day Rhopressa 1 drop at bedtime Left Eye: Dorzolamide/Timolol 2 times a day documented in this encounter [facility] 10-03-2020 History of Present illness Narrative I was available on site at [place] for any urgent infusion issues. Jovon Bowers MD Professor of Neurology Director, Neuromuscular Division documented in this encounter [facility] 09-26-2020 History of Present illness Narrative [facility] Patient is following up for her CIDP and diabetic neuropathy. Overall, she is having a lot of neuropathic pain, most prominently in the feet. This is an electrical sensation. She also feels that she has had gotten weaker. There is concern for progression. Of the she also gets some muscle cramping. Recent labs include a BUN of 26 and a creatinine of 1.19 with unremarkable LFTs. TSH 6.89 with a T4 that was normal. A1c 9.7. White blood cell count 8.59, hemoglobin 10.7, platelets 377. No monoclonal recently, though she did have an IgG kappa in the past. Normal kappa to lambda ratio recently. Normal bone density in 2019. 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 Mag, lyme, Anca, CCP, transglutaminase, B6, B12, folate, methylmalonic acid unremarkable. B1 high in the past. Most recent vitamin-D normal. Tilt with borderline cardio vagal impairment. TTR negative. BP 142/67 Pulse 105 Ht 1.651 m (5' 5 ) Wt 70.8 kg (156 lb) BMI 25.96 kg/m Smoking Status Former Smoker On general examination, no acute distress. On neurologic examination, awake, alert, and appropriate. Language intact. Cranial nerves intact. Motor strength was 5-proximally, 4+ in the hand intrinsics except for 4 in the left APB. She was two in the right dorsiflexor and 3-on left dorsiflexor. Intact knee extension. She had 2+ reflexes, except for 0 at the ankle jerks. She had absent distal vibration at the great toes, felt for about 5-6 seconds at the fingers. Better preserved at the patellars. She had decreased to pinprick up to above the knees and above the fingertips. Impression CIDP and diabetic neuropathy likely combining together. We will get a demyelinating neuropathy panel to look for any etiology of refractory CIDP to change our treatment regimen. She will continue IVIG for now. Also will get a VEGF and skeletal survey, though her prior monoclonal was kappa not lambda to be concerned about poems, and she had no monoclonal on recent testing. Optimize diabetes and thyroid disease recommended. She has anemia is also following with Hematology, as well as for any other hematologic concern like poems or other concern with her monoclonal gammopathy in the past. Will proceed from there. Medical hx notations from prior Past Medical History: Diagnosis Date Asthma Broken toe Right, Great Diabetes mellitus Diabetic oculopathy Essential hypertension, benign Foot infection 12/2018 Glaucoma Hyperlipidemia per pt Hypothyroidism Neuropathy Sleep apnea Past Surgical History: Procedure Laterality Date IMPLANT AQUEOUS SHUNT TO EXTRAOCULAR RESERVOIR Left 02/23/2020 Laterality: Left; Surgeon: Grace Washington MD; Location: [facility] PERIOP EXTRACTION EXTRACAPSULAR CATARACT W/ IMPLANT (ECCE IOL) Left 12/23/2018 Laterality: Left; Surgeon: Grace Washington MD; Location: [facility] PERIOP REPLANTATION AMPUTATED FINGER (DISTAL TIP TO SUBLIMIS TENDON INSERTION) Left 06/2018 AMPUTATION FINGER OR HAND Left 06/2018 tip of middle finger EYE SURGERY Left 06/2017 GALL BLADDER SURGERY 2011 FOOT SURGERY Left 2009 heel SINUS SURGERY 1994 BACK SURGERY lumbar CHOLECYSTECTOMY EXTRACTION EXTRACAPSULAR CATARACT W/ IMPLANT (ECCE IOL) Right pt unsure date EYE SURGERY Right 3X in past - for Glaucoma I&D ABSCESS FINGER Left index finger infection on nailbed ROTATOR CUFF REPAIR Bilateral rt 2010 lt 2014 Updated Meds Current Outpatient Medications: acetaminophen-codeine 300-30 MG Tab per tablet, hasn't used for a while patient reports, Disp: , Rfl: 0 Alpha-Lipoic Acid 300 MG Tab, Take 1 tablet by mouth 2 times daily., Disp: 60 tablet, Rfl: 5 brimonidine (Alphagan P) 0.15 % Solution ophthalmic solution, Place 1 drop in left eye 2 times daily. 90 day supply, Disp: 3 Bottle, Rfl: 1 Cholecalciferol (VITAMIN D3) 5000 units Cap, Take 1 capsule by mouth daily., Disp: 100 capsule, Rfl: 3 Continuous Blood Gluc Sensor (FreeStyle Juanpablo 14 Day Sensor) Misc, Inject 2 Each under the skin every 14 days., Disp: 2 Each, Rfl: 3 dorzolamide-timolol 22.3-6.8 MG/ML Solution ophthalmic solution, Place 1 drop in both eyes 2 times daily. Generic. 90 day supply., Disp: 10 mL, Rfl: 3 ezetimibe (Zetia) 10 MG tablet, Take 1 tablet by mouth daily., Disp: 30 tablet, Rfl: 3 immune globulin, human, 20 GM/200ML Solution, 400 mg/kg by Intravenous route As directed PRN., Disp: , Rfl: immune globulin, human, 20 GM/200ML, 15 g by Intravenous route every 21 days. 15 grams , Disp: , Rfl: Insulin Degludec (Tresiba FlexTouch) 100 UNIT/ML Solution Pen-injector injection, Inject 25 Units under the skin at bedtime., Disp: 3 Prefilled Pen/Syringe, Rfl: 4 Insulin Degludec (Tresiba FlexTouch) 100 UNIT/ML Solution Pen-injector injection, 3 samples given--Lot [id number], exp 10/2021, Disp: 3 Prefilled Pen/Syringe, Rfl: 0 Insulin Lispro, 1 Unit Dial, 100 UNIT/ML Solution Pen-injector, Use less than 30 units daily with sliding scale., Disp: 5 Prefilled Pen/Syringe, Rfl: 3 Multiple Vitamin (MULTI-DAY PO), take 1 tablet by mouth daily.., Disp: , Rfl: tiZANidine 4 MG Tab tablet, tiZANidinetiZANidine (ZANAFLEX) 4 MG tablet as needed. Lolly Haq [facility] ([id number]), Disp: , Rfl: acetaZOLAMIDE 250 MG tablet, Take 1 tablet by mouth 2 times daily. 90 day supply (Patient not taking: Reported on 09/13/2020), Disp: 180 tablet, Rfl: 1 cyanocobalamin 1000 MCG Tab, Take 2 tablets by mouth daily., Disp: 60 tablet, Rfl: 11 Insulin Degludec (Tresiba FlexTouch) 100 UNIT/ML Solution Pen-injector injection, 3 Samples given [id number], Exp 10/2021 (Patient not taking: Reported on 09/26/2020), Disp: 9 mL, Rfl: 0 Insulin Lispro, 1 Unit Dial, (HumaLOG KwikPen) 100 UNIT/ML Solution Pen-injector, Sample given [id number], exp 09/2022 (Patient not taking: Reported on 09/13/2020), Disp: 1 Prefilled Pen/Syringe, Rfl: 0 Insulin Lispro, 1 Unit Dial, (HumaLOG KwikPen) 100 UNIT/ML Solution Pen-injector, Sample given [id number], Exp-09/2022 (Patient not taking: Reported on 09/26/2020), Disp: 3 mL, Rfl: 0 lidocaine 5 % Patch patch, Place 1 patch on skin every 24 hours. Max of 12 hours of application then remove., Disp: 30 patch, Rfl: 1 Allergies Allergen Reactions Avelox [Moxifloxacin] Rash Keflex [Cephalexin] Itching burning Nucynta [Tapentadol] Passed out Family History Problem Relation Age of Onset Cancer- Other Other Diabetes Other Stroke Other Heart Disease - Other Other Hypertension Other Breast Cancer Other Diabetes Mother Heart Disease - Other Mother Hypertension Mother Stroke Mother Diabetes Father Cancer- Other Father Glaucoma Neg Hx Blindness Neg Hx Social History Social History Socioeconomic History Marital status: Spouse name: Not on file Number of children: Not on file Years of education: Not on file Highest education level: Not on file Occupational History Not on file Tobacco Use Smoking status: Former Smoker Types: Cigarettes Quit date: 1996 Years since quittin.6 Smokeless tobacco: Never Used Vaping Use Vaping Use: Never used Substance and Sexual Activity Alcohol use: No Drug use: No Sexual activity: Not on file Other Topics Concern Service Not Asked Blood Transfusions Not Asked Caffeine Concern Not Asked Occupational Exposure Not Asked Hobby Hazards Not Asked Sleep Concern Not Asked Stress Concern Not Asked Weight Concern Not Asked Special Diet Not Asked Back Care Not Asked Exercise Not Asked Bike Helmet Not Asked Seat Belt Not Asked Domestic Violence No Social History Narrative Not on file Social Determinants of Health Financial Resource Strain: Difficulty of Paying Living Expenses: Food Insecurity: Worried About Running Out of Food in the Last Year: Ran Out of Food in the Last Year: Transportation Needs: Lack of Transportation (Medical): Lack of Transportation (Non-Medical): Physical Activity: Days of Exercise per Week: Minutes of Exercise per Session: Stress: Feeling of Stress : Social Connections: Frequency of Communication with Friends and Family: Frequency of Social Gatherings with Friends and Family: Attends Mosque Services: Active Member of Clubs or Organizations: Attends Club or Organization Meetings: Marital Status: Intimate Partner Violence: Fear of Current or Ex-Partner: Emotionally Abused: Physically Abused: Sexually Abused: documented in this encounter [facility] 09-26-2020 Instructions Franck Mtz MD - 09/26/2020 12:00 PM EDT I put in lidocaine patches to your pharmacy. Please cut those in two, and put half a patch on each foot for 12 hours a day. Continue the alpha lipoic acid 600 mg a day. Please get your lab work and x-rays to look for any other cause of your neuropathy. Continue the IVIG as you are and we will consider other treatments after your results come back. documented in this encounter [facility] 09-21-2020 History of Present illness Narrative The patient tolerated the infusion well without any complications. documented in this encounter [facility] 09-14-2020 History of Present illness Narrative HPI Chief Complaint Patient presents with Foot Problem left grt toe blister- new brace causing rubbing Patient is a pleasant 55-year-old female who comes in today with a 1 week history of left great toe blister. States that she is worried about it as she has had many problems. She believes is from her new set of custom dorsiflexor he braces for her profound dropfoot and profound peripheral neuropathy from her diabetes. She denies any overt trauma to her great toe but states that she would like to see this addressed. Past Medical History: Diagnosis Date Abscess of foot without toes, left 01/26/2019 Asthma Atherosclerosis of [place] arteries of left leg with ulceration of other part of foot (HCC) 03/14/2017 Back problem Bilateral foot-drop 02/01/2016 Callus of foot 03/16/2019 Cataract Cellulitis and abscess of foot excluding toe 09/26/2014 Cellulitis of great toe, right 10/30/2015 Cellulitis of left foot 08/14/2017 Cellulitis of left lower limb 09/01/2015 Cellulitis of right toe 11/15/2015 Cellulitis of second toe of right foot 11/15/2016 Chronic ulcer of great toe of left foot (HCC) 03/27/2015 Closed displaced fracture of first metatarsal bone 02/01/2016 Closed displaced fracture of first metatarsal bone of left foot with routine healing 04/17/2015 Contusion of great toe, right 11/04/2016 Contusion of right foot 11/11/2017 Corns and callosities 03/13/2016 Diabetes mellitus ([facility]) Dystrophic nail 11/15/2016 Foot cramps Foot ulcer (HCC) 02/25/2019 OTHER PART OF FOOT Fracture of third toe, left, closed 02/15/2016 Fungal toenail infection 11/15/2016 GERD (gastroesophageal reflux disease) Glaucoma both eyes Heart murmur High cholesterol 03/27/2015 Hyperlipidemia Hypertension Ingrown toenail 10/30/2015 Leg cramps Metatarsalgia of both feet 10/07/2016 Neuropathy Non-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 (HCC) 09/06/2016 Non-pressure chronic ulcer of left lower leg with fat layer exposed (HCC) 03/28/2017 Non-pressure chronic ulcer of other part of left foot with fat layer exposed ([facility]) 08/14/2017 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 involvement without evidence of necrosis ([facility]) 03/14/2017 Non-pressure chronic ulcer of right ankle limited to breakdown of skin ([facility]) 08/14/2016 Nondisplaced fracture of proximal phalanx of right great toe 09/19/2017 Onychomycosis 12/13/2015 Osteomyelitis ([facility]) 04/23/2019 Peripheral vascular disease ([facility]) 08/17/2019 Pre-ulcerative calluses 08/13/2018 Right foot ulcer ([facility]) 09/26/2014 Shortness of breath Sprain of calcaneofibular ligament of right ankle 12/05/2017 Swelling of both ankles Swelling of both lower extremities Thyroid disorder 03/27/2015 Tinea unguium 08/13/2018 Traumatic closed fracture of phalanx of foot with minimal displacement 08/11/2017 Traumatic closed nondisplaced fracture of phalanx of right foot with delayed healing 09/08/2017 Type 2 diabetes mellitus with diabetic neuropathy ([facility]) 11/11/2017 Diabetic autonomic (poly) neuropathy Type 2 diabetes mellitus with foot ulcer ([facility]) 06/19/2016 Type 2 diabetes, uncontrolled, with peripheral circulatory disorder ([facility]) 03/28/2017 Xerosis cutis 01/17/2016 Past Surgical History: Procedure Laterality Date BACK SURGERY 1995;1996 CHOLECYSTECTOMY LAPAROSCOPIC 2018 ROTATOR CUFF REPAIR Bilateral several yrs ago SINUS SURGERY 1994 SKIN GRAFT N/A TOE AMPUTATION Social History Socioeconomic History Marital status: Spouse name: Not on file Number of children: Not on file Years of education: Not on file Highest education level: Not on file Occupational History Not on file Tobacco Use Smoking status: Former Smoker Years: 10.00 Quit date: 04/07/1989 Years since quittin.4 Smokeless tobacco: Never Used Tobacco comment: doesn't remember how much she smoked Vaping Use Vaping Use: Never used Substance and Sexual Activity Alcohol use: Yes Comment: rarely Drug use: No Sexual activity: Not on file Other Topics Concern Not on file Social History Narrative Not on file Social Determinants of Health Financial Resource Strain: Difficulty of Paying Living Expenses: Food Insecurity: Worried About Running Out of Food in the Last Year: Ran Out of Food in the Last Year: Transportation Needs: Lack of Transportation (Medical): Lack of Transportation (Non-Medical): Physical Activity: Days of Exercise per Week: Minutes of Exercise per Session: Stress: Feeling of Stress : Social Connections: Frequency of Communication with Friends and Family: Frequency of Social Gatherings with Friends and Family: Attends Mosque Services: Active Member of Clubs or Organizations: Attends Club or Organization Meetings: Marital Status: Review of Systems Constitutional: Negative for chills and fever. Gastrointestinal: Negative for diarrhea, nausea and vomiting. Musculoskeletal: Negative for arthralgias and joint swelling. Skin: Positive for color change and wound. Neurological: Positive for weakness. Physical Exam -Patient is alert and oriented to person place and time Linear and appropriate humor and thought process. Vascular: DP PT pulses are poorly palpable bilaterally. CFT is delayed but intact. Neuro: Light touch is absent Babinski's is absent. Musculoskeletal: Muscle strength is 3-5 worst of the dorsiflexors. Mild discomfort to the?>< great toe though does have profound neuropathy. Derm: Fluctuance and bulla present left great toe to the IPJ fluid-filled. Mild surrounding erythema no streaking no lymphangitis. PImpression/Plan Problem List Items Addressed This Visit None Visit Diagnoses Great toe pain, left - Primary Foot abscess, left Relevant Orders Wound Aerobic Culture Patient is a pleasant 55-year-old type II diabetic female with profound polyperipheral neuropathy, elevated limb loss risk and acute left great toe abscess. -Based on this, this does require an incision and drainage. Additionally, did start her on oral Bactrim DS 10 days 20 tabs 0 refills for coverage. The purpose of the incision and drainage is to drain the abscess and proceed with limb salvage. This does come with clear and obvious risk including amputation osteomyelitis pain tingling burning scarring infection. Despite this risk she does wish to proceed. Procedure: After timeout consults performed, and alcohol prep, a 15 blade was used to make an incision. Approximately 3 cc of purulence was appreciated and deep cultures were taken and passed off the surgical field. A copious amount of normal saline was used to irrigate the same location and postop bandage was applied. Low medical complexity decision making based on the waxing and waning character of her diabetes and need for procedure. documented in this encounter [facility] 09-13-2020 History of Present illness Narrative History of Present Illness Type 2 diabetes, insulin-dependent: This is a follow-up visit to the office. Patient states she was diagnosed with diabetes in the late . She is currently prescribed Humalog 7 units plus sliding scale and Tresiba 25 units daily. Admits she has not been taking Tresiba regularly due to cost. Humalog now also becoming expensive and admits she is only taking this a few times a week. Victoza was discontinued due to cost. Had been on Ozempic and tolerated well though we were unable to provide her with samples. She did not tolerate metformin. She is unable to perform glucometer checks because of very painful hands and severe neuropathy, along with open ulcerations on her fingers. There was an amputation of a left 3rd finger, initiated by an ulcer likely from a glucometer check. She also has very poor dexterity, and cannot manipulate the glucometer testing strips and lancets into position. She cannot make a fist. She is currently using the Juanpablo sensor system to check her blood sugars when she can afford to pay shi for the sensors. She is attempting to wear the sensors as much as possible since she cannot do fingersticks, she is paying shi for the sensors. She has neuropathy in a stocking glove distribution. She continues to see a neurologist. She is also seeing a open hearth laborer and wound care. She has a follow-up with podiatry because of significant peripheral vascular disease and ulcerations on the lower extremities. 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 There is a history of osteomyelitis of the foot. Hemoglobin A1c = 9.7%, down from 10.0%, down from 9.8%. Urine albumin creatinine ratio negative. GFR = 54. Fasting blood sugar = 190. Previously C-peptide level elevated at 3.4. Juanpablo download unable to be reviewed as very little data. She admits that she has had poor compliance with using her juanpablo system, but has increased adherence over the past few weeks. She reports significant stress in her life. Has not been scanning juanpalbo CGM frequently but will take Humalog intermittently and basing dose depending on how she feels. Hypothyroidism was previously taking levothyroxine, she discontinued quite some time ago and is only taking vitamins . TSH = 5.86. Hyperlipidemia Previous LDL is elevated above target, we had started atorvastatin 20 mg daily, but discontinued due to elevated liver function tests. LDL = 161 mg/dL with Triglycerides of 157 mg/dL. currently taking Zetia 10 mg daily and reports tolerating well. Hypertension- Blood pressure is at target in the office today. Nurse's Note: Review of Systems: Review of Systems Constitutional: Positive for malaise/fatigue. Negative for weight loss and weight gain. Skin: Positive for rash. Eyes: Positive for blurred vision. Negative for double vision. Cardiovascular: Positive for palpitations and leg swelling. Negative for chest pain, dyspnea on exertion and claudication. Respiratory: Is experiencing shortness of breath. Gastrointestinal: Positive for diarrhea and constipation. Negative for heartburn, nausea and vomiting. Genitourinary: Negative for polyuria. Neurological: Positive for tingling. Negative for tremors. Psychiatric: Positive for depression. The patient does not have insomnia. Endocrine: Negative for polydipsia Physical Exam Blood pressure 158/74, pulse 89, height 1.651 m (5' 5 ), weight 69.9 kg (154 lb 3.2 oz), not currently . Physical Exam Constitutional: General: She is not in acute distress. Appearance: She is not diaphoretic. HENT: Head: Normocephalic. Cardiovascular: Rate and Rhythm: Normal rate and regular rhythm. Heart sounds: Normal heart sounds. Pulmonary: Effort: Pulmonary effort is normal. Breath sounds: Normal breath sounds. Musculoskeletal: Comments: Now with bilateral leg braces Skin: General: Skin is warm and dry. Comments: Ulceration noted to medial aspects of the distal portion of the fifth digit on the left hand. No sign of secondary infection. The bilateral shins with small eschar noted, mild erythema but no warmth or induration. Neurological: Mental Status: She is alert and oriented to person, place, and time. Psychiatric: Mood and Affect: Mood and affect normal. Cognition and Memory: Memory normal. Judgment: Judgment normal. Neurological Exam Mental Status Alert. Assessment and Plan Diabetes: Unfortunately, numerous medications are unaffordable to her with her current insurance plan. She is also had significant barriers that are making glycemic control difficult. She reports that she has Tresiba and Humalog at home though she has just not been taking it. Finds difficulty remembering it. We discussed ways to increase medication compliance though unfortunately there are barriers to many of these recommendations. We highly recommended scanning CGM at least 4 times a day and dosing Humalog off of blood sugar readings and not just basing dose just on how she feels. To get her in touch with [employer], however she does not answer her phone if she does not recognize the number, so likely has been missing their calls. We will coordinate with [employer]; the tracking features of [employer] will undoubtedly help us help her. Hypothyroidism: TSH above optimal. She does not want to takeyroxine therapy. We will check TSH with next labs. Hyperlipidemia: Appears to have transaminitis with statin therapy, LFTs improving. So far tolerating Zetia, we will check LFTs with next routine blood work. Nurse Note: Review of Systems Constitutional: Positive for fatigue. Negative for diaphoresis and unexpected weight change. HENT: Negative for trouble swallowing and voice change. Eyes: Positive for pain and visual disturbance. Respiratory: Negative for cough and shortness of breath. Cardiovascular: Positive for palpitations. Negative for chest pain and leg swelling. Gastrointestinal: Positive for constipation and diarrhea. Negative for nausea and vomiting. Endocrine: Negative for cold intolerance, heat intolerance, polydipsia and polyuria. Musculoskeletal: Positive for neck pain. Skin: Negative for rash. Neurological: Positive for tremors, weakness and numbness. Psychiatric/Behavioral: Negative for sleep disturbance. The patient is nervous/anxious. Patient last seen [facility] 01/27/2018 Nursing Assessment: Physical Exam documented in this encounter [facility] Evaluation note Diagnosis Asthma, unspecified asthma severity, unspecified whether complicated, unspecified whether persistent Chronic ulcer of great toe of left foot, unspecified ulcer stage (HCC) Closed displaced fracture of first metatarsal bone of left foot with routine healing Glaucoma, unspecified glaucoma type, unspecified laterality High cholesterol Pure hypercholesterolemia 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) Osteomyelitis, unspecified site, unspecified type (HCC) Thyroid disorder Unspecified disorder of thyroid Ulcer of foot, unspecified laterality, unspecified ulcer stage (HCC) Non-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 (HCC) Non-pressure chronic ulcer of other part of left foot with fat layer exposed (HCC) Non-pressure chronic ulcer of left lower leg with fat layer exposed (HCC) 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) [facility] Great toe pain, left- Primary Foot abscess, left Cellulitis and abscess of foot, except toes [facility] Diagnosis Chronic ulcer of great toe of left foot, unspecified ulcer stage (HCC)- Primary [facility] Diagnosis Ulcer of left foot with fat layer exposed (HCC)- Primary [facility] Diagnosis Ulcer of left foot with fat layer exposed (HCC)- Primary [facility] Diagnosis Non-pressure chronic ulcer of other part of left foot with fat layer exposed (HCC)- Primary Ulcer of left foot with fat layer exposed (HCC) [facility] Diagnosis 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)- Primary [facility] Diagnosis 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) [facility] Diagnosis 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)- Primary [facility] Diagnosis Partial thickness burn of single finger of right hand excluding thumb, initial encounter- Primary Wound infection Posttraumatic wound infection not elsewhere classified Laceration of right thumb, initial encounter [facility] Diagnosis 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 [facility] Type 2 diabetes mellitus with diabetic polyneuropathy, with long-term current use of insulin- Primary Acquired hypothyroidism Unspecified hypothyroidism Diabetic macular edema- [facility] 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 Diabetic macular edema- Primary [facility] Diagnosis 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 Diabetic macular edema- Primary [facility] Diagnosis 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 Diabetic macular edema- Primary [facility] Diagnosis 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 Diabetic macular edema- Primary [facility] Diagnosis Primary open angle glaucoma (POAG) of right eye, severe stage- Primary Primary open angle glaucoma (POAG) of left eye, severe stage Diabetic macular edema Pseudophakia Lens replaced by other means [facility] Diagnosis Non-intractable vomiting with nausea, unspecified vomiting type- Primary Altered mental status, unspecified altered mental status type Leukocytosis, unspecified type documented in this encounter [employer] Phone: evaluation note* Diagnosis Sepsis (HCC)- Primary Stupor Other alteration of consciousness Encephalitis Unspecified cause of encephalitis, myelitis, and encephalomyelitis Acute osteomyelitis of cervical spine (HCC) 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 MSSA (methicillin susceptible Staphylococcus aureus) septicemia ([facility]) Methicillin susceptible staphylococcus aureus septicemia Primary hypertension Unspecified essential hypertension Altered mental state Altered mental status Encephalopathy Encephalopathy, unspecified CIDP (chronic inflammatory demyelinating polyneuropathy) (HCC) Chronic inflammatory demyelinating polyneuritis Bacteremia Hypothyroidism Unspecified hypothyroidism Hypokalemia Hypopotassemia Type 2 diabetes mellitus with diabetic polyneuropathy (HCC) Type II or unspecified type diabetes mellitus with neurological manifestations, not stated as uncontrolled Upper GI bleed Hemorrhage of gastrointestinal tract, unspecified Non-intractable vomiting Unintentional weight loss Loss of weight Acute metabolic encephalopathy CRP elevated Elevated C-reactive protein (CRP) Bandemia Allergy to multiple antibiotics Other drug allergy Pyogenic inflammation of bone ([facility]) Unspecified osteomyelitis, site unspecified Acute intractable headache documented in this encounter [employer] Phone: evaluation note* Diagnosis COVID-19- Primary Pneumonia of left lower lobe due to infectious organism Hypokalemia Hypopotassemia Hypomagnesemia Disorders of magnesium metabolism [facility] (current) use of antibiotics documented in this encounter [employer] Phone: evaluation note* Diagnosis COVID- Primary Encephalopathy Encephalopathy, unspecified 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 Hypokalemia Hypopotassemia Primary hypertension Unspecified essential hypertension Type 2 diabetes mellitus with diabetic polyneuropathy ([facility]) Type II or unspecified type diabetes mellitus with neurological manifestations, not stated as uncontrolled Hypothyroidism Unspecified hypothyroidism Hypomagnesemia Disorders of magnesium metabolism CIDP (chronic inflammatory demyelinating polyneuropathy) ([facility]) Chronic inflammatory demyelinating polyneuritis Bacteremia MSSA (methicillin susceptible Staphylococcus aureus) septicemia ([facility]) Methicillin susceptible staphylococcus aureus septicemia Bandemia CRP elevated Elevated C-reactive protein (CRP) Metabolic encephalopathy Normocytic anemia Anemia, unspecified Acute respiratory failure with hypoxemia ([facility]) Septic arthritis of cervical spine ([facility]) Pyogenic arthritis, other specified sites Atlantoaxial instability Other joint derangement, not elsewhere classified, other specified site ACP (advance care planning) Other specified counseling Goals of care, counseling/discussion Other specified counseling Encounter for palliative care Feeding difficulties Feeding difficulties and mismanagement On tube feeding diet Pathological fracture of other site, unspecified pathological cause, initial encounter documented in this encounter [employer] Phone: evaluation noteNo assessment information available [facility] Work Phone: Evaluation note* Diagnosis Atlantoaxial instability Other joint derangement, not elsewhere classified, other specified site S/P cervical spinal fusion Arthrodesis status documented in this encounter [employer] Phone: evaluation note* Diagnosis S/P cervical spinal fusion Arthrodesis status documented in this encounter [employer] Phone: Assessments Diagnosis Calf ulcer, left, limited to breakdown of skin (HCC) Type 2 diabetes mellitus wit h other skin ulcer, without long-term current use of insulin (HCC) Diagnosis Type 2 diabetes mellitus wit hout complication, with long-term current use of insulin - Primary Diagnosis Type 2 diabetes mellitus wit hout complication, with long-term current use of insulin - Primary Diagnosis Type 2 diabetes mellitus wit h diabetic polyneuropathy, without long-term current use of insulin - Primary Mixed hyperlipidemia Diagnosis Type 2 diabetes mellitus wit hout complication, with long-term current use of insulin Diagnosis Cellulitis- Primary Diagnosis Avulsion of fingernail, initial encounter- Primary Reason for Referral Status Reason Specialty Diagnoses / Procedures Referred By Contact Referred To Contact New Request Rheumatology Diagnoses Type 2 diabetes mellitus without complication, with long-term current use of insulin Luis Miguel Kaur MD [address] [place] [id number] History of Present Illness * Luis Miguel Kaur MD - 01/01/2018 2:15 PM EST Formatting of this note may be different from the original. History of Present Illness Diabetes Thyroid Problem Diabetes Patient states she was diagnosed with diabetes in the late . She is currently taking pioglitazone 30 mg daily, and Victoza 1.8 mg twice a day. She did not tolerate metformin. Hands are showing open sores and ulcerations from dry skin/lack of circulation. No logbook/glucometer. She is unable to perform glucometer checks because of very painful hands and severe neuropathy, along with open ulcerations on her fingers. She also has very poor dexterity, and cannot manipulate the glucometer testing strips and lancets into position. She has neuropathy in a stocking glove distribution. She has visible ulcerations on her hands/fingers. She continues to see a neurologist. She is also seen a open hearth laborer and wound care and has follow-up with podiatry because of significant peripheral vascular disease and ulcerations on the lower extremities. 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 There is a history of osteomyelitis of the foot. Pre vious hemoglobin A1c = 9.8%, down from 11.7% with an elevated C-peptide level. She still finds it incredibly difficult and painful to test blood sugars. Last fasting glucose is 259. There was a recent blood sugar of 95 mg/dL with symptoms of hypoglycemia. We did try to arrange for home health, but they had limited options to help her. Hemoglobin A1c = 8.1%. . Hypothyroidism Patient was diagnosed with hypothyroidism for which she was taking levothyroxine 125g daily. Current TSH then decreased to 0.238. She is adherent to therapy. She is now taking levothyroxine 125 g/112 micro-grams altering every other day. Current TSH = 3.090. Hyperlipidemia Previous LDL is elevated above target, we had started atorvastatin 20 mg daily, however AST/ALT then increased significantly from normal to 287/192. No visible jaundice. Poor memory: Patient is concerned about deterioration of memory. Forgeting characters on TV shows, etc. Se is concerned about possibility of dementia. She has been following up with neurology. She states she is barely holding it together . Nurse's Note: Review of Systems: Review of Systems Constitutional: Positive for malaise/fatigue. Negative for weight loss and weight gain. Skin: Positive for rash. Eyes: Positive for blurred vision. Negative for double vision. Cardiovascular: Positive for palpitations and leg swelling. Negative for chest pain, dyspnea on exertion and claudication. Respiratory: Is experiencing shortness of breath. Gastrointestinal: Positive for diarrhea and constipation. Negative for heartburn, nausea and vomiting. Genitourinary: Negative for polyuria. Neurological: Positive for tingling. Negative for tremors. Psychiatric: Positive for depression. The patient does not have insomnia. Endocrine: Negative for polydipsia Physical Exam Blood pressure 121/75, pulse 108, height 1.664 m (5' 5.5 ), weight 69.4 kg (153 lb), not currently . Physical Exam Constitutional: She is oriented to person, place, and time and well-developed, well-nourished, and in no distress. No distress. HENT: Head: Normocephalic. Neck: No tracheal deviation present. No thyromegaly present. Cardiovascular: Normal rate, regular rhythm, normal heart sounds and intact distal pulses. No murmur heard. Pulmonary/Chest: No respiratory distress. She has no wheezes. Lymphadenopathy: She has no cervical adenopathy. Neurological: She is alert and oriented to person, place, and time. Skin: Skin is warm and dry. She is not diaphoretic. Psychiatric: Mood, memory, affect and judgment normal. Neurologic Exam Mental Status Oriented to person, place, and time. Assessment and Plan Diabetes: Patient discontinued the metformin due to mental fogginess, and metallic taste in mouth. Discussed the Juanpablo again. We will give her Smith number to get an account set up for the Juanpablo. She has no other option to check her blood sugar, and less we use a DexCom are more expensive CGM. 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 Trying to get in touch with her primary care physician to determine options for therapy Hypothyroidism: TSH is low so we will have her continue levothyroxine 125 g and Levothyroxine 112 mcg. Hyperlipidemia: Will reasess. Off statin. Poor Memory: She has follow-up with her neurologist, Dr. Horne. * Yusra Ching - 01/01/2018 2:15 PM EST Formatting of this note may be different from the original. Nurse Note: Review of Systems Constitutional: Positive for fatigue and unexpected weight change. Negative for fever. HENT: No difficulty swallowing No change in voice Respiratory: Positive for shortness of breath. Cardiovascular: Positive for chest pain, palpitations and leg swelling. Gastrointestinal: Positive for constipation. Negative for diarrhea, nausea and vomiting. Endocrine: Negative for polydipsia. Genitourinary: Negative for frequency. Neurological: Positive for weakness and numbness. Negative for tremors. Psychiatric/Behavioral: Negative for sleep disturbance. The patient is nervous/anxious. Nursing Assessment: Physical Exam in this encounter Summary Purpose Family History No Family History Records FoundNo Family History Records FoundNo Family History Records FoundNo Family History Records FoundNo Family History Records FoundNo Family History Records FoundNo Family History Records FoundNo Family History Records FoundNo Family History Records FoundNo Family History Records FoundNo Family History Records FoundNo Family History Records FoundNo Family History Records FoundNo Family History Records FoundNo Family History Records FoundNo Family History Records FoundNo Family History Records FoundNo Family History Records FoundNo Family History Records Found Advance Directives No Advanced Directives Records FoundDocuments on File Type Date Recorded 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 Advance Directives and Livin g Will 12/20/2019 3:00 PM Documents on File Type Date Recorded 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 ACP-Advance Directive ACP-Power of Privacy Director Latest Code Status on File Code Status Date Activated Date Inactivated Comments Full Code 10/09/2017 4:19 PM Latest Code Status on File Code Status Date Activated Date Inactivated Comments Full Code 06/28/2021 9:07 PM Latest Code Status on File Code Status Date Activated Date Inactivated Comments Full Code 06/28/2021 9:07 PM 07/10/2021 7:03 PM Latest Code Status on File Code Status Date Activated Date Inactivated Comments Full Code 07/14/2021 4:39 PM Full Code 06/28/2021 9:07 PM 07/10/2021 7:03 PM Healthcare Agents on File Name Relationship Healthcare Agent Relationship Communication Hina Smithner Brother/Sister Primary Decision Maker Advance Directive Response Recorded Date/ Time Advance Directives No November 29, 2016 1:49pm Documents on File Type Date Recorded 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 ACP-Advance Directive 08/13/2021 4:27 PM Latest Code Status on File Code Status Date Activated Date Inactivated Comments Full Code 08/22/2021 1:31 AM 09/28/2021 2:06 PM Full Code 07/14/2021 4:39 PM 08/11/2021 12:08 AM Healthcare Agents on File Name Relationship Healthcare Agent Relationship Communication Cheli Hekristopherner Brother/Sister Primary Decision Maker Eun Candelaria Supplemental (Ot her) Decision Maker Healthcare Agents on File Name Relationship Healthcare Agent Relationship Communication Cheli Hekristopherner Brother/Sister Primary Decision Maker Eun Candelaria Supplemental (Ot her) Decision Maker Healthcare Agents on File Name Relationship Healthcare Agent Relationship Communication Cheli Heefner Brother/Sister Primary Decision Maker Eun Candelaria Supplemental (Ot her) Decision Maker Discharge Instructions * Instructions* Jonathan Camara MD - 05/29/2018 Recheck in 2 -3 days at your Primary Care provider or your specialist. If you can't get into your care provider, you can try to get in with one of our BACKUP providers below - Just call for an appt. If unable to get into see your provider you are always welcome to be rechecked at the Emergency Department. [ [address] [place] [address]: [place] Office - [address] [address] - Phone Number [phone] [place] Office - [address] [facility] [address] - Phone Number [phone] ] Rest and limit exertion / strenous activity. RETURN if symptoms CHANGE, NOT IMPROVING or need help.Take Medications as prescribed (if prescribed - Please take or use as directed) * Attachments The following attachments cannot be sent through Care Everywhere. * Cellulitis (Icelandic) in this encounter* Instructions* Andres Lubin MD - 12/20/2019 If unable to follow-up with the physician/clinic recommended above, please see an Urgent Care Clinic for re-evaluation within the same number of days. Return to the nearest emergency department at any time if there is: any new, returning or worsening symptoms Pus/drainage New redness/swelling New dark/black/brown appearance to the finger new or changing rash fever > 100.4 (or feeling like there is a high fever if you don't have a thermometer) uncontrollable shaking chills difficulty following up as recommended or any other concerns about your condition or treatment. best regards, Andres Lubin MD * Attachments The following attachments cannot be sent through Care Everywhere. * Nail Avulsion (Icelandic) documented in this encounter Additional Source Comments Reason for Visit (unrecogniz ed section and content) Reason Comments Medication Refill Reason Comments Appointment Reason Comments Follow-up Diabetes Reason Comments Wound Infection r leg Reason Comments Finger Injury Reason Comments Foot Problem left grt toe blister - new brace causing rubbing Reason Comments Follow-up L great toe ulcer Reason Comments Follow-up L foot ulcer Reason Comments Wound Check Left foot Reason Comments Wound Infection Left foot Nail Care Reason Comments Wound Check Left foot wound Reason Comments Wound Check Left foot wound chec k Reason Comments Follow-up L foot ulcer - doing better Reason Comments Wound Check Fu left great toe wo und Reason Comments Wound Check WC left foot. Reason Comments Hand Injury Burnt RT 5th digit o f hand 2 days ago on hot food- now blister has popped-- also has a small laceration on RT thumb x 2+ weeks- pt has neuropathy and it is not healing Reason Comments Infusion Visit [facility] Specialty Diagnoses / Procedures Referred By Contac t Referred To Contact Diagnoses CIDP (chronic inflammatory demyelinating polyneuropathy) [facility] [address] [facility] [id number] [place] [id number] Infusion [address] [facility] [place] [address] Referral ID Status Reason Start Date Expiration Date V isits Requested Visits Authorized [id number] Auth Not Needed 06/24/2018 100 100 Reason Comments Follow-up Diabetes Thyroid Problem Reason Comments Infusion Visit [facility] Specialty Diagnoses / Procedures Referred By Contac t Referred To Contact Diagnoses CIDP (chronic inflammatory demyelinating polyneuropathy) [facility] [address] [facility] [id number] [place] [address] [address] [facility] [address] [place] [address] Reason Comments Follow-up Reason Comments Glaucoma Follow-up Reason Comments Nausea [facility]. Per EMS she was outside and was brought back inside they were unaware she was outside. Per [facility] and EMS she is having bizarre behavior Emesis Altered Mental Status Reason Comments Altered Mental Status Specialty Diagnoses / Procedures Referred By Contac t Referred To Contact Diagnoses Altered mental state [facility] [address] [place] [address] [facility] [address] [place] [address] Referral ID Status Reason Start Date Expiration Date Visits Re quested Visits Authorized [id number] 1 1 Reason Comments Hypertension Patient was at [facility] for blood transfusion/low potassium transferred to ED for evaluation INFORMATION SOURCE (unrecogn ized section and content) DATE CREATED AUTHOR 04/08/2018 [facility] DATE CREATED AUTHOR AUTHOR'S ORGANIZ ATION 06/07/2019 [facility] DATE CREATED AUTHOR AUTHOR'S ORGANIZ ATION 12/25/2019 [facility] DATE CREATED AUTHOR AUTHOR'S ORGANIZ ATION 02/13/2020 [facility] DATE CREATED AUTHOR AUTHOR'S ORGANIZ ATION 04/18/2021 [facility] DATE CREATED AUTHOR AUTHOR'S ORGANIZ ATION 05/02/2021 [facility] DATE CREATED AUTHOR AUTHOR'S ORGANIZ ATION 05/07/2021 [facility] DATE CREATED AUTHOR AUTHOR'S ORGANIZ ATION 05/09/2021 [facility] DATE CREATED AUTHOR AUTHOR'S ORGANIZ ATION 05/15/2021 [facility] DATE CREATED AUTHOR AUTHOR'S ORGANIZ ATION 06/01/2021 [facility] DATE CREATED AUTHOR AUTHOR'S ORGANIZ ATION 06/13/2021 [facility] DATE CREATED AUTHOR AUTHOR'S ORGANIZ ATION 09/05/2021 [facility] DATE CREATED AUTHOR AUTHOR'S ORGANIZ ATION 10/30/2021 [facility] DATE CREATED AUTHOR AUTHOR'S ORGANIZ ATION 11/27/2021 [facility] DATE CREATED AUTHOR AUTHOR'S ORGANIZ ATION 12/10/2021 [facility] DATE CREATED AUTHOR AUTHOR'S ORGANIZ ATION 11/25/2022 [facility] DATE CREATED AUTHOR AUTHOR'S ORGANIZ ATION 01/26/2023 [facility] DATE CREATED AUTHOR AUTHOR'S ORGANIZ ATION 08/20/2023 [facility] DATE CREATED AUTHOR AUTHOR'S ORGANIZ ATION 11/27/2023 [facility] Lindsey Bradshaw LPN - 05/29/2018 9:54 AM Jonathan Curiel MD - 05/29/2018 9:49 AM Thu Khan RN - 05/29/2018 9:36 AM Ashwini Bhandari RN - 12/20/2019 3:53 PM EST ED Notes (unrecognized secti on and content) Tripe antibiotic ointment and Band-Aid applied to wound on right may at this time. Patient presents today with CC of: Leg Wound with drainage Patient describes issue began around 2 months ago patient started having problems with wounds on her lower extremities. Today she was concerned because 1 of the wounds on the right leg became red and had some pus on the bandage. Patient states she has not had fevers nausea vomiting or diarrhea. She says she frequently hits her shins on stepstools at work and that caused her to have small abrasions. Patient's been eating but not as much as usual today she ate cereal she said she is also got a history of eye problems and is on steroid medications that have been making her blood sugar more elevated than usual. She says usually they run between 100-200 ROS: At least 10 systems reviewed with patient or surrogate during physical exam and are otherwise negative. I have reviewed initial and available nurse's notes for the patient. The patient's medications, allergies, and medical history was reviewed. Family, Social & Surg histories were reviewed and are not relevant except as noted above in the history of present illness, or below in the respective specific section. I have reviewed and agree with all vital signs synchronously available in EMR at the time of this dictation. Times documented are the time of computer entry, are not necessarily the time the event occurred. Physical EXAM: General ~ Constitutional: Conscious & cooperative , generally healthy appearance Head: NCAT Eyes: Sclera white , conjunctiva clear , PERRL, non-icteric ENT : Nose with pink nasal mucosa , nares patent Mouth - mucous membrane moist , pink , no lesions , no trismus Neck - no masses , supple , no cervical spinous process tenderness Pharynx - no exudate , no petechia or obvious lesions , no airway obstruction or stridor Heart: RRR no MRG Lungs: CTA Musculoskeletal ~ Back ~ Extremities: Warm and w/o clubbing , cyanosis , or edema, there is no deformity noted, some tenderness noted directly on the wound on her right may where there is redness and a healing wound. There is no lymphangitic streaking however there are multiple small abrasions all in various stages of healing. There is no drainage at this time. There is no bleeding. Patient does have good pulses and good cap refill. Sensation is diminished in the lower extremity which the patient says he has had for some time. No other obvious injuries except. Dorsalis pedis and posterior tibial pulses present. Patient does have some calluses on the feet and some onychomycosis Neurologic: Cranial nerves grossly intact, good muscle strength , attention good , cooperative , Alert and oriented x4 Psychiatric: Calm , Insight and mood appropriate , Skin: No rashes , good skin turgor , cap refill 2-3 seconds , warm and dry, See above MDM: History and physical exam is consistent with - Right leg chronic wound, superficial cellulitis DDx included multiple etiologies for the symptoms such as - chronic wound with one that is irritated and superficially infected, cellulitis, abscess, sepsis, dermatitis, venous stasis ulcers XRAYS: Not indicated at this time Critical Care: None Condition and evaluation here was discussed in detail. Patient will take antibiotics doxycycline for the wound infection and stop using the Neosporin but get a prescription for Bactroban because of the possibility of methicillin-resistant staph aureus. Patient will follow up with primary care provider also suggested follow up w/ podiatry for calluses and onychomycosis The patient advised to take medications as prescribed and then follow up with their Primary care provider or specialist in 2-3 days. Patient instructed to return immediately if there are any problems, they are not improving or they require help or assistance. Jonathan Camara MD 05/29/18 1003 Pt states that she has wounds on b/l legs x several months . Denies fever. States dm. in this encounter Pt given d/c instructions and follow up info. No questions. Pt amb to exit with steady gait. Resp remain easy and unlabored. No distress. Upon cleaning of pt wound and placement of dressing. It is noted that pt finger is waxy on end. Physician updated and concurs with assessment. Pt to f/u with pcp and possibly vascular surgeon. Pt reports that she first noticed the nail on her index finger on right hand coming off about a month ago. Pt reports increased bleeding to the area and that nail is about 3/4 off. D/t neuropathy pt unsure what caused problem initially. documented in this encounter Care Teams (unrecognized sec tion and content) Senior Solutions Engineer Relationship Specialty Start Date End Date Neri Santa, DO [address] [place] [address] PCP - General Family Medicine 03/28/17 Pili Gilliam, MARK Consulting Physician Podiatry 04/07/17 Reji Miramontes III, DO Consulting Physician Vascular Surgery 04/07/17 Senior Solutions Engineer Relationship Specialty Start Date End Date Neri Santa, DO [address] [place] [address] PCP - General Family Medicine 03/28/17 Pili Gilliam, MARK Consulting Physician Podiatry 04/07/17 Reji Miramontes III, DO Consulting Physician Vascular Surgery 04/07/17 Senior Solutions Engineer Relationship Specialty Start Date End Date Neri Santa, DO [address] [place] [address] PCP - General Family Medicine 03/28/17 Pili Gilliam, MARK Consulting Physician Podiatry 04/07/17 Reji Miramontes III, DO Consulting Physician Vascular Surgery 04/07/17 Senior Solutions Engineer Relationship Specialty Start Date End Date Neri Santa, DO [address] [place] [address] PCP - General Family Medicine 03/28/17 Pili Gilliam, SINDYM Consulting Physician Podiatry 04/07/17 Reji Miramontes III, DO Consulting Physician Vascular Surgery 04/07/17 Senior Solutions Engineer Relationship Specialty Start Date End Date Neri Santa, DO [address] [place] [address] PCP - General Family Medicine 03/28/17 Pili Gilliam, DPM Consulting Physician Podiatry 04/07/17 Reji Miramontes III, DO Consulting Physician Vascular Surgery 04/07/17 Senior Solutions Engineer Relationship Specialty Start Date End Date Neri Santa, DO [address] [place] [address] PCP - General Family Medicine 03/28/17 Pili Gilliam, DPM Consulting Physician Podiatry 04/07/17 Reji Miramontes III, DO Consulting Physician Vascular Surgery 04/07/17 Senior Solutions Engineer Relationship Specialty Start Date End Date Neri Santa, DO [address] [place] [address] PCP - General Family Medicine 03/06/17 Adilson Hernandez MD [address] [place] [address] Ophthalmology 07/18/17 Kartik Mejia MD [address] [place] [address] Pain Medicine 12/25/17 Tisha Arriaga MD [address] [place] [address] Neurologist Neurology 07/18/17 Luis Miguel Kaur MD [address] [place] [address] Technician Biological Health Endocrinology, Diabetes & Metabolism 03/06/17 Chris Zavala, OD [address] [place] [address] Optometry 03/15/20 Senior Solutions Engineer Relationship Specialty Start Date End Date Arina, Neri Parker, [address] [place] [address] PCP - General Family Medicine 03/06/17 Adilson Hernandez MD [address] [place] [address] Ophthalmology 07/18/17 Kartik Mejia MD [address] [place] [address] Pain Medicine 12/25/17 Tisha Arriaga MD [address] [place] [address] Neurologist Neurology 07/18/17 Luis Miguel Kaur MD [address] [place] [address] Technician Biological Health Endocrinology, Diabetes & Metabolism 03/06/17 MontgomeryChris, OD [address] [place] [address] Optometry 03/15/20 Senior Solutions Engineer Relationship Specialty Start Date End Date Neri Santa, DO [address] [place] [address] PCP - General Family Medicine 03/06/17 Adilson Hernandez MD [address] [place] [address] Ophthalmology 07/18/17 Kartik Mejia MD [address] [place] [address] Pain Medicine 12/25/17 Tisha Arriaga MD [address] [place], [place] [id number] Neurologist Neurology 07/18/17 Luis Miguel Kaur MD [address] [place] [address] Technician Biological Health Endocrinology, Diabetes & Metabolism 03/06/17 Lucas Chris Sousa, OD [address] [place] [address] Optometry 03/15/20 Senior Solutions Engineer Relationship Specialty Start Date End Date Neri Santa, DO [address] [place] [address] PCP - General Family Medicine 03/06/17 Adilson Hernandez MD [address] [place] [address] Ophthalmology 07/18/17 Kartik Mejia MD [address] [place] [address] Pain Medicine 12/25/17 Tisha Arriaga MD [address] [place] [address] Neurologist Neurology 07/18/17 Luis Miguel Kaur MD [address] [place] [address] Technician Biological Health Endocrinology, Diabetes & Metabolism 03/06/17 Chris Zavala, OD [address] [place] [address] Optometry 03/15/20 Senior Solutions Engineer Relationship Specialty Start Date End Date Neri Santa DO [address] [place] [address] PCP - General Family Medicine 03/06/17 Adilson Hernandez MD [address] [place] [address] Ophthalmology 07/18/17 Kartik Mejia MD [address] [place] [address] Pain Medicine 12/25/17 Tisha Arriaga MD [address] [place] [address] Neurologist Neurology 07/18/17 Luis Miguel Kaur MD [address] [place] [address] Technician Biological Health Endocrinology, Diabetes & Metabolism 03/06/17 Chris Zavala, OD [address] [place] [address] Optometry 03/15/20 Senior Solutions Engineer Relationship Specialty Start Date End Date Neri Santa DO [address] [place] [address] PCP - General Family Medicine 03/06/17 Adilson Hernandez MD [address] [place] [address] Ophthalmology 07/18/17 Kartik Mejia MD [address] [place] [address] Pain Medicine 12/25/17 Tisha Arriaga MD [address] [place] [address] Neurologist Neurology 07/18/17 Luis Miguel Kaur MD [address] [place] [address] Technician Biological Health Endocrinology, Diabetes & Metabolism 03/06/17 Chris Zavala, OD [address] [place] [address] Optometry 03/15/20 Senior Solutions Engineer Relationship Specialty Start Date End Date Neri Santa, [address] [facility] [place] [address] PCP - General Family Medicine 03/06/17 Adilson Hernandez MD [address] [place] [address] Ophthalmology 07/18/17 Kartik Mejia MD [address] [place] [address] Pain Medicine 12/25/17 Tisha Arriaga MD [address] [place] [address] Neurologist Neurology 07/18/17 Luis Miguel Kaur MD [address] [place] [address] Technician Biological Health Endocrinology, Diabetes & Metabolism 03/06/17 Chris Zavala, OD [address] [place] [address] Optometry 03/15/20 Senior Solutions Engineer Relationship Specialty Start Date End Date Sr Arina Neri Elena, DO [address] [facility] [place] [address] PCP - General Family Medicine 07/19/18 Senior Solutions Engineer Relationship Specialty Start Date End Date Sr Arina Neri Elena, DO [address] [facility] [place] [address] PCP - General Family Medicine 07/19/18 Senior Solutions Engineer Relationship Specialty Start Date End Date Sr Arina Neri Elena, DO [address] [facility] [place] [address] PCP - General Family Medicine 07/19/18 Senior Solutions Engineer Relationship Specialty Start Date End Date Sr Arina Neri Parker, DO [address] [facility] [place] [address] PCP - General Family Medicine 07/19/18 Team Status: Inactive Member Role Status Dates Rufus Shen II MD Attending Provider Active Senior Solutions Engineer Relationship Specialty Start Date End Date Ganga Savage MD [address] [place] [address] PCP - General Internal Medicine 08/14/21 Senior Solutions Engineer Relationship Specialty Start Date End Date Ganga Savage MD [address] [place] [address] PCP - General Internal Medicine 08/14/21 Senior Solutions Engineer Relationship Specialty Start Date End Date Ganga Savage MD [address] [place] [address] PCP - General Internal Medicine 08/14/21 Senior Solutions Engineer Relationship Specialty Start Date End Date Neri Santa MD [address] [place] [facility] [place] [address] PCP - General Family Medicine 08/12/22 Scheduled Active and Recently Administ ered Medications (unrecognized section and content) Medication Order 06/26/2021 06/27/2021 06/28/2021 0.9 % sodium chloride bolus (COMPLETED) 1,000 mL, IntraVENous, at 1,000 mL/hr, Administer over 1 Hours, ONCE, On Nohemy 06/28/21 at 0415, For 1 dose 0441 (New Bag - Prov ider: Ashwini Morrison RN)0546 (Stopped - Provider: Kati Villarreal RN) 0.9 % sodium chloride bolus (COMPLETED) 1,000 mL (15.2 mL/kg), IntraVENous, at 1,000 mL/hr, Administer over 1 Hours, ONCE, On Nohemy 06/28/21 at 0800, For 1 dose 0700 (New Bag - Prov ider: Kati Villarreal RN)0810 (Stopped - Provider: Kati Villarreal RN) aspirin chewable tablet 81 mg (COMPLETED) 81 mg, Oral, ONCE, 1 dose, On Nohemy 06/28/21 at 0730 0727 (Given - Provid er: Kati Villarreal RN) famotidine (PEPCID) 20 mg in sodium chloride (PF) 10 mL injection (COMPLETED) 20 mg, IntraVENous, ONCE, 1 dose, On Nohemy 06/28/21 at 0415, IV Push over minimum of 2 minutes - Dilute with 10 mL NS 0410 (Given - Provid er: Ashwini Morrison RN) naloxone (NARCAN) injection 1 mg (COMPLETED) 1 mg, IntraVENous, ONCE, 1 dose, On Nohemy 06/28/21 at 0530 0523 (Given - Provid er: Ashwini Morrison RN) ondansetron (ZOFRAN) injection 4 mg (COMPLETED) 4 mg, IntraVENous, ONCE, 1 dose, On Nohemy 06/28/21 at 0415 0409 (Given - Provid er: Ashwini Morrison RN) ondansetron (ZOFRAN) injection 4 mg (COMPLETED) 4 mg, IntraVENous, ONCE, 1 dose, On Nohemy 06/28/21 at 0800 0811 (Given - Provid er: Kati Villarreal RN) prochlorperazine (COMPAZINE) injection 10 mg (COMPLETED) 10 mg, IntraVENous, ONCE, 1 dose, On Nohemy 06/28/21 at 0945 0946 (Given - Provid er: Kati Villarreal RN) PRN Medication Order 06/26/2021 06/27/2021 06/28/2021 iopamidol (ISOVUE-370) 76 % injection 75 mL (COMPLETED) 75 mL, IntraVENous, IMG ONCE PRN, 1 dose, Starting on Nohemy 06/28/21 at 0526, Until Discontinued, Other 0543 (Given - Provid er: Val Hunter) Scheduled Medication Order 07/08/2021 07/09/2021 07/10/2021 acetaminophen (TYLENOL) tablet 650 mg 650 mg, Oral, EVERY 6 HOURS, First dose on Fri07/06/21 at 2245, Until Discontinued, Maximum dose of acetaminophen is 4000 mg from all sources in 24 hours. 0712 (Not Given - Provider: Jany Valderrama RN - Reason: Other)1302 (Given - Provider: Camilo Hernandez RN)1758 (Given - Provider: Camilo Hernandez RN)2250 (Given - Provider: Maggi Quiñones RN) 0422 (Not Given - Provider: Maggi Quiñones RN - Reason: Patient/family refused)1107 (Given - Provider: Sebas Arnold RN)1533 (Given - Provider: Sebas Arnold RN)2250 (Not Given - Provider: Maggi Quiñones RN - Reason: Patient/family refused) 0349 (Given - Provider: Maggi Quiñones RN)0949 (Given - Provider: eSbas Arnold RN)1621 (Given - Provider: Sebas Arnold RN)2245 (Due) aspirin chewable tablet 81 mg 81 mg, Oral, DAILY, First dose on 06/30/21 at 0900, Until Discontinued 0900 (Automatically Held - Provider: Kam Prado APRN - ARLETTE) 0900 (Held - Provider: Sebas Arnold RN - Reason: Order parameters not met) 0900 (Held - Provider: Sebas Arnold RN - Reason: Order parameters not met) carvedilol (COREG) tablet 25 mg 25 mg, Oral, 2 TIMES DAILY WITH MEALS, First dose on Fri06/29/21 at 0800, Until Discontinued, Administer with food to minimize the risk of orthostatic hypotension 08 (Given - Provider: Camilo Hernandez RN)1759 (Given - Provider: Camilo eHrnandez RN) 08 (Given - Provider: Sebas Arnold RN)1534 (Given - Provider: Sebas Arnold RN) 0914 (Given - Provider: Sebas Arnold RN)1700 (Due - Provider: Darleen Carmona MD) dextrose 50 % IV solution 25 g, IntraVENous, ONCE, 1 dose, On Fri07/10/21 at 0815 1112 (Not Given - Provider: Sebas Arnold RN - Reason: Contraindicated - Comment: bs 137) enoxaparin (LOVENOX) injection 40 mg 40 mg, SubCUTAneous, DAILY, First dose on Fri06/29/21 at 0900, Until Discontinued, Indication of Use: Prophylaxis-DVT/PE 09 (Automatically Held - Provider: Kam Prado APRN - SCREED OPERATOR) 09 (Held - Provider: Sebas Arnold RN - Reason: Order parameters not met)170 (Unheld by provider - Provider: Becki Chang MD) 0915 (Given - Provider: Sebas Arnold RN) fluconazole (DIFLUCAN) tablet 200 mg 200 mg, Oral, DAILY, 14 doses, First dose on Fri07/02/21 at 1430, Last dose on Fri07/15/21 at 0900, Antimicrobial Indications: Intra-Abdominal Infection 08 (Given - Provider: Camilo Hernandez RN) 0809 (Given - Provider: Sebas Arnold RN) 0916 (Given - Provider: Sebas Arnold RN) gabapentin (NEURONTIN) capsule 200 mg 200 mg, Oral, 3 TIMES DAILY, First dose on Fri07/04/21 at 1500, Until Discontinued 08 (Given - Provider: Camilo Hernandez RN)1257 (Given - Provider: Camilo Hernandez RN)2013 (Given - Provider: Maggi Quiñones RN) 0807 (Given - Provider: Sebas Arnold RN)1322 (Given - Provider: Sebas Arnold RN)2027 (Given - Provider: Maggi Quiñones RN) 0914 (Given - Provider: Sebas Arnold RN)1407 (Given - Provider: Sebas Arnold RN)2100 (Due - Provider: Rufus Argueta MD) insulin glargine (LANTUS) injection vial 16 Units 16 Units, SubCUTAneous, DAILY, First dose (after last modification) on 06/30/21 at 0900, Until Discontinued 0900 (Automatically Held) 0833 (Unheld by provider - Provider: Rufus Argueta MD)0839 (Given - Provider: Sebas Arnold RN)0900 (Held - Provider: Sebas Arnold RN - Reason: Order parameters not met) 0826 (Held by provider - Provider: Rufus Argueta MD - Reason: Other - Comment: Glycemia running low)0900 (Held - Provider: Sebas Arnold RN - Reason: Order parameters not met) insulin lispro (HUMALOG) injection vial 0-12 Units 0-12 Units, SubCUTAneous, 3 TIMES DAILY WITH MEALS, First dose on Nohemy 06/28/21 at 1700, Until Discontinued, Medium Dose Corrective Algorithm Glucose: Dose: If <139 No Insulin 140-199 2 Units 200-249 4 Units 250-299 6 Units 300-349 8 Units 350-400 10 Units Above 400 12 Units 0812 (Not Given - Provider: Camilo Hernandez RN - Reason: Order parameters not met)1352 (Given - Provider: Camilo Hernandez RN)1811 (Not Given - Provider: Camilo Hernandez RN - Reason: Order parameters not met) 0819 (Given - Provider: Sebas Arnold RN)1122 (Not Given - Provider: Sebas Arnold RN - Reason: Order parameters not met)1646 (Not Given - Provider: Sebas Arnold RN - Reason: Order parameters not met) 0917 (Not Given - Provider: Sebas Arnold RN - Reason: Order parameters not met)1113 (Not Given - Provider: Sebas Arnold RN - Reason: Order parameters not met)1700 (Due - Provider: Rufus Argueta MD) insulin lispro (HUMALOG) injection vial 0-6 Units 0-6 Units, SubCUTAneous, NIGHTLY, First dose on Fri06/28/21 at 2100, Until Discontinued, If continuous tube feedings/TPN/NPO, give correction dose based on result, no reduction in dose. If eating or bolus tube feeding: Medium Dose Corrective Algorithm Glucose: Dose: If <139 No Insulin 140-199 1 Unit 200-249 2 Units 250-299 3 Units 300-349 4 Units 350-400 5 Units Above 400 6 Units 2006 (Not Given - Provider: Maggi Quiñones RN - Reason: Order parameters not met - Comment: poct 139) 2157 (Not Given - Provider: Maggi Quiñones RN - Reason: Order parameters not met - Comment: poct 101) 2099 (Due - Provider: Rufus Argueta MD) lactobacillus (CULTURELLE) capsule 1 capsule 1 capsule, Oral, DAILY WITH BREAKFAST, First dose on Fri07/11/21 at 0800, Until Discontinued, Do not add to warm or hot foods or beverages. Caps may be opened & mixed in a cool beverage or sprinkled onto baby food or applesauce. Mix entire packet content into cool food or drink until dissolved. latanoprost (XALATAN) 0.005 % ophthalmic solution 1 drop 1 drop, Both Eyes, NIGHTLY, First dose on Fri06/28/21 at 2100, Until Discontinued 2013 (Not Given - Provider: Maggi Quiñones RN - Reason: Patient/family refused) 2026 (Not Given - Provider: Maggi Quiñones RN - Reason: Patient/family refused) 2099 (Due - Provider: Rufus Argueta MD) levothyroxine (SYNTHROID) tablet 100 mcg 100 mcg, Oral, DAILY, First dose on Fri07/09/21 at 0900, Until Discontinued, Tube feeding (TF) interaction, obtain physician order to manage, recommend holding TF for 30 minutes before and after dose. 1108 (Given - Provider: Sebas Arnold RN) 0608 (Given - Provider: Maggi Quiñones RN) lidocaine 4 % external patch 1 patch 1 patch, TransDERmal, Administer over 12 Hours, DAILY, First dose (after last modification) on Fri07/03/21 at 0030, Apply patch to left posterior neck. Patch may remain in place for up to 12 hours in any 24 hour period. 0812 (Patch Applied - Provider: Camilo Hernandez RN)2017 (Patch Removed - Provider: Maggi Quiñones RN) 08 (Patch Applied - Provider: Sebas Arnold RN)2026 (Patch Removed - Provider: Maggi Quiñones RN) 09 (Patch Applied - Provider: Sebas Arnold RN)2114 (Due: Patch Removed - Provider: Sebas Arnold RN) lisinopril (PRINIVIL;ZESTRIL) tablet 10 mg 10 mg, Oral, DAILY, First dose (after last modification) on Fri07/03/21 at 0900, Until Discontinued 0900 (Automatically Held - Provider: Becki Chang MD) 0900 (Held - Provider: Sebas Arnold RN - Reason: Order parameters not met) 0900 (Held - Provider: Sebas Arnold RN - Reason: Order parameters not met) magnesium sulfate 1000 mg in dextrose 5% 100 mL IVPB (COMPLETED) 1,000 mg, IntraVENous, at 100 mL/hr, Administer over 1 Hours, ONCE, On Fri07/08/21 at 0900, For 1 dose, Recommended infusion rate not to exceed 1,000 mg (milligrams) per hour. 1308 (New Bag - Provider: Camilo Hernandez RN)1344 (Stopped - Provider: Camilo Hernandez RN) magnesium sulfate 1000 mg in dextrose 5% 100 mL IVPB (COMPLETED) 1,000 mg, IntraVENous, at 100 mL/hr, Administer over 1 Hours, ONCE, On Fri07/10/21 at 1130, For 1 dose, Recommended infusion rate not to exceed 1,000 mg (milligrams) per hour. 1244 (New Bag - Provider: eSbas Arnold RN)1357 (Stopped - Provider: Sebas Arnold RN) nafcillin 2,000 mg in dextrose 5 % 100 mL IVPB (mini-bag) 2,000 mg, IntraVENous, EVERY 4 HOURS, First dose on Fri06/29/21 at 1600, Until Discontinued, Antimicrobial Indications: Bloodstream Infection 0100 (Stopped - Provider: Jany Valderrama RN)0353 (New Bag - Provider: Jany Valderrama RN)0530 (Stopped - Provider: Jany Valderrama RN)0809 (New Bag - Provider: Camilo Hernandez RN)0950 (Stopped - Provider: Camilo Hernandez RN)1254 (New Bag - Provider: Camilo Hernandez RN)1256 (Stopped - Provider: Camilo Hernandez RN)1758 (New Bag - Provider: Camilo Hernandez, RN)1811 (Stopped - Provider: Camilo Hernandez, RN)2018 (New Bag - Provider: Maggi Quiñones RN)2118 (Stopped - Provider: Maggi Quiñones RN) 0008 (New Bag - Provider: Maggi Quiñones RN)0111 (Stopped - Provider: Maggi Quiñones RN)0420 (New Bag - Provider: Maggi Quiñones RN)0525 (Stopped - Provider: Maggi Quiñones RN)0826 (New Bag - Provider: Sebas Arnold RN)0950 (Stopped - Provider: Sebas Arnold RN)1115 (New Bag - Provider: Sebas Arnold RN)1220 (Stopped - Provider: Sebas Arnold RN)1546 (New Bag - Provider: Sebas Arnold RN)1648 (Stopped - Provider: Sebas Arnold, VIRGIE)2030 (New Bag - Provider: Maggi Quiñones RN)2158 (Stopped - Provider: Maggi Quiñones RN) 0006 (New Bag - Provider: Maggi Quiñones RN)0106 (Stopped - Provider: Maggi Quiñones RN)0352 (New Bag - Provider: Maggi Quiñones RN)0456 (Stopped - Provider: Maggi Quiñones RN)0935 (New Bag - Provider: Sebas Arnold RN)0935 (Canceled Entry - Provider: Sebas Arnold RN)1030 (Stopped - Provider: Sebas Arnold, VIRGIE)1130 (Canceled Entry - Provider: Sebas Arnold, VIRGIE)1135 (New Bag - Provider: Sebas Arnold, VIRGIE)1233 (Stopped - Provider: Sebas Arnold, VIRGIE)1600 (Due - Provider: Rufus Argueta MD)2000 (Due - Provider: Rufus Argueta MD) potassium bicarb-citric acid (EFFER-K) effervescent tablet 40 mEq 40 mEq, Oral, DAILY, First dose on Fri07/10/21 at 0900, Until Discontinued, Do not chew or crush. Dissolve flavored tablets completely in 3 to 4 ounces of cold water; unflavored tablets may be dissolved in 3 to 4 ounces of cold juice. Patient to sip slowly over a 5 to 10 minute period. May further dilute if GI adverse effects occur. 0922 (Given - Provid er: Sebas Arnold RN) potassium chloride (KLOR-CON M) extended release tablet 40 mEq 40 mEq, Oral, ONCE, 1 dose, On Fri07/08/21 at 0900, Do not crush, chew, or suck on tablet. Tablet may also be broken in half and each half swallowed separately. 1255 (Canceled Entry - Provider: Camilo Hernandez RN) potassium chloride 10 mEq/100 mL IVPB (Peripheral Line) () 10 mEq, IntraVENous, EVERY HOUR, 4 doses, First dose on Fri07/08/21 at 0800, Last dose on Fri07/08/21 at 1100, at 100 mL/hr 0811 (New Bag - Provider: Camilo Hernandez RN)0953 (New Bag - Provider: Camilo Hernandez RN)0953 (New Bag - Provider: Camilo Hernandez RN)1255 (Stopped - Provider: Camilo Hernandez RN)1256 (Canceled Entry - Provider: Camilo Hernandez RN) sennosides-docusate sodium (SENOKOT-S) 8.6-50 MG tablet 1 tablet 1 tablet, Oral, 2 TIMES DAILY, First dose on Fri07/06/21 at 2245, Until Discontinued, Post-op 0813 (Not Given - Provider: Camilo Hernandez RN - Reason: Other)2012 (Not Given - Provider: Maggi Quiñones RN - Reason: Patient/family refused) 08 (Given - Provider: Sebas Arnold RN)2026 (Not Given - Provider: Maggi Quiñones RN - Reason: Patient/family refused) 0915 (Given - Provider: Sebas Arnold RN)2100 (Due) sodium chloride flush 0.9 % injection 5-40 mL 5-40 mL, IntraVENous, EVERY 12 HOURS SCHEDULED (2 times per day), First dose on Nohemy 06/28/21 at 2130, Until Discontinued, For Line Patency: Peripheral IV = 5 mL; Midline or Central Line = 10 mL/lumen. If following IV push medication, administer flush at same rate as the IV push. Flush volume is determined by type of infusion therapy being given. For non-viscous solutions use: Peripheral IV = 5 mL Midline or Central Line = 10 mL/lumen For viscous solutions (i.e. blood components, parenteral nutrition, contrast media, or after obtaining blood sample) use: Peripheral IV = 10 mL Midline or Central Line = 20 mL/lumen 0814 (Not Given - Provider: Camilo Hernandez RN - Reason: IV Fluid Infusing)2007 (Not Given - Provider: Maggi Quiñones RN - Reason: IV Fluid Infusing) 08 (Given - Provider: Sebas Arnold RN)2027 (Not Given - Provider: Maggi Quiñones RN - Reason: IV Fluid Infusing) 09 (Given - Provider: Sebas Arnold RN)2099 (Due - Provider: Rufus Argueta MD) sodium chloride flush 0.9 % injection 5-40 mL 5-40 mL, IntraVENous, EVERY 12 HOURS SCHEDULED (2 times per day), First dose on Fri07/06/21 at 2245, Until Discontinued, For Line Patency: Peripheral IV = 5 mL; Midline or Central Line = 10 mL/lumen. If following IV push medication, administer flush at same rate as the IV push. Flush volume is determined by type of infusion therapy being given. For non-viscous solutions use: Peripheral IV = 5 mL Midline or Central Line = 10 mL/lumen For viscous solutions (i.e. blood components, parenteral nutrition, contrast media, or after obtaining blood sample) use: Peripheral IV = 10 mL Midline or Central Line = 20 mL/lumen 0813 (Not Given - Provider: Camilo Hernandez RN - Reason: IV Fluid Infusing)2007 (Not Given - Provider: Maggi Quiñones RN - Reason: IV Fluid Infusing) 08 (Given - Provider: Sebas Arnold RN)2027 (Not Given - Provider: Maggi Quiñones RN - Reason: IV Fluid Infusing) 0916 (Given - Provider: Sebas Arnold, VIRGIE)2100 (Due) valproic acid (DEPAKENE) 250 MG/5ML oral solution 250 mg 250 mg, Oral, 2 times daily, First dose on Fri07/03/21 at 1515, Until Discontinued 0814 (Given - Provider: Camilo Hernandez RN)2116 (Given - Provider: Maggi Quiñones RN) 0807 (Given - Provider: Sebas Arnold RN)2028 (Given - Provider: Maggi Quiñones RN) 0914 (Given - Provider: Sebas Arnold, RN)2100 (Due) Continuous Medication Order 07/08/2021 07/09/2021 07/10/2021 0.9 % sodium chloride infusion IntraVENous, at 100 mL/hr, CONTINUOUS, Starting on Fri07/05/21 at 1945 2246 (New Bag - Provider: Maggi Quiñones RN) 1838 (New Bag - Provider: Sebas Arnold RN) 1406 (New Bag - Provider: Sebas Arnold RN) PRN Medication Order 07/08/2021 07/09/2021 07/10/2021 0.9 % sodium chloride infusion IntraVENous, at 5-250 mL/hr, PRN, if patient receiving piggyback infusions and maintenance fluids are not ordered OR KVO fluids to protect IV site / prevent frequent line interruptions/ long duration, Starting on Fri07/06/21 at 2217, For piggyback infusion, administer at same rate as piggyback for a total of 25 mL. Enter 25 mL into dose field and piggyback rate into rate field of order. If piggyback is infusing at a rate less than 100 mL/hr, enter 25 mL into dose field and 100 mL/hr into rate field of order. For KVO fluids, enter rate of 20 mL/hr or less into rate field of order. bisacodyl (DULCOLAX) EC tablet 5 mg 5 mg, Oral, DAILY PRN, Starting on Fri06/28/21 at 2107, Until Discontinued, Constipation, First line therapy for constipation. dextrose 5 % solution 100 mL/hr, IntraVENous, PRN, Low blood sugar, Starting on Fri06/28/21 at 1617, Start infusion following administration of dextrose 50% or glucagon. dextrose bolus 10% 125 mL(Linked Group 1) 125 mL, IntraVENous, at 937.5 mL/hr, Administer over 8 Minutes, PRN, Other, Blood glucose 40 - 69 mg/dL and patient NOT ALERT or NPO, Starting on Nohemy 06/28/21 at 1616, If patient does not respond within 5 minutes, repeat dose x 1. Start D5W at 100 mL/hour until ordering provider can be reached. Repeat blood glucose in 15 minutes. If blood glucose is 40 - 69 mg/dL, repeat treatment and recheck blood glucose in 15 minutes x 2. If using Glucostabilizer, dose as instructed per system. 1308 (New Bag - Provider: Sebas Arnold RN)1317 (Stopped - Provider: Sebas Arnold RN) dextrose bolus 10% 250 mL(Linked Group 1) 250 mL, IntraVENous, at 937.5 mL/hr, Administer over 16 Minutes, PRN, Other, Blood glucose LESS than 40 mg/dL and patient NOT ALERT or NPO, Starting on Nohemy 06/28/21 at 1616, If patient does not respond within 5 minutes, repeat dose x 1. Start D5W at 100 mL/hour until ordering provider can be reached. Repeat blood glucose in 15 minutes. If blood glucose is LESS than 40 mg/dL, repeat treatment and recheck blood glucose in 15 minutes x 2. If using Glucostabilizer, dose as instructed per system. 1308 (See Alternative - Provider: Sebas Arnold RN)1317 (See Alternative - Provider: Sebas Arnold RN) glucagon (rDNA) injection 1 mg 1 mg, IntraMUSCular, PRN, Starting on Nohemy 06/28/21 at 1617, Until Discontinued, Low blood sugar, Blood glucose less than 70 mg/dL and patient NOT ALERT or NPO and does not have IV access., After administration, attempt intravenous access and start D5W at 100 mL/hr. Repeat blood glucose in 15 minutes x2 and notify provider. glucose chewable tablet 16 g 16 g (4 tablet), Oral, PRN, Starting on Nohemy 06/28/21 at 1616, Until Discontinued, Low blood sugar, If blood glucose is LESS than 70 mg/dL and patient is alert and tolerating oral. Give 4 tablets (16g) Repeat blood glucose in 15 minutes. If blood glucose is less than 70 mg/dL, repeat treatment and recheck blood glucose in 15 minutes x 2. If blood glucose remains LESS than 70 mg/dL, notify provider. hydrALAZINE (APRESOLINE) injection 10 mg 10 mg, IntraVENous, EVERY 4 HOURS PRN, Starting on Fri06/29/21 at 2219, Until Discontinued, High Blood Pressure, SBP > 160, Hold for HR >100 labetalol (NORMODYNE;TRANDATE) injection 10 mg 10 mg, IntraVENous, EVERY 4 HOURS PRN, Starting on Fri06/28/21 at 1615, Until Discontinued, High Blood Pressure, for sbp >160, Hold for HR <60, or SBP <120 loperamide (IMODIUM) capsule 2 mg 2 mg, Oral, 4 TIMES DAILY PRN, Starting on Fri07/03/21 at 0329, Until Discontinued, Diarrhea, After each loose stool. 0808 (Given - Provider: Sebas Arnold RN) 0915 (Given - Provider: Sebas Arnold RN) morphine (PF) injection 1 mg 1 mg, IntraVENous, EVERY 4 HOURS PRN, Starting on Fri07/05/21 at 1130, Until Discontinued, Pain Severe (7-10), If oral and IV narcotics ordered, use oral first and only use IV if oral is ineffective or cannot take oral. Do Not give oral and IV within 1 hour of each other unless specifically ordered. 0235 (Given - Provider: Jany Valderrama RN) ondansetron (ZOFRAN) injection 4 mg(Linked Group 2) 4 mg, IntraVENous, EVERY 6 HOURS PRN, Starting on Fri06/28/21 at 2107, Until Discontinued, Nausea, Vomiting, Administer if oral route cannot be used. ondansetron (ZOFRAN-ODT) disintegrating tablet 4 mg(Linked Group 2) 4 mg, Oral, EVERY 8 HOURS PRN, Starting on Fri06/28/21 at 2107, Until Discontinued, Nausea, Vomiting oxyCODONE (ROXICODONE) immediate release tablet 10 mg(Linked Group 3) 10 mg, Oral, EVERY 4 HOURS PRN, Starting on Fri07/06/21 at 2217, Until Discontinued, Pain Severe (7-10) 1348 (Given - Provider: Camilo Hernandez RN) 0522 (Given - Provider: Maggi Quiñones, RN)1533 (See Alternative - Provider: Sebas Arnold, RN) oxyCODONE (ROXICODONE) immediate release tablet 5 mg(Linked Group 3) 5 mg, Oral, EVERY 4 HOURS PRN, Starting on Fri07/06/21 at 2217, Until Discontinued, Pain Moderate (4-6) 1348 (See Alternative - Provider: Camilo Hernandez RN) 0522 (See Alternative - Provider: Maggi Quiñones, VIRGIE)1533 (Given - Provider: Sebas Arnold, RN) potassium chloride 10 mEq/100 mL IVPB (Peripheral Line) 10 mEq, IntraVENous, PRN, Starting on Nohemy 07/05/21 at 1103, Until Discontinued, at 100 mL/hr, Potassium Replacement, K Lab Replacement Action 2.7 to 3.0 10 mEq IVPB x 6 doses (60 mEq Total) Under 2.7 CALL PROVIDER and administer 10 mEq IVPB x 6 doses (60 mEq Total) Infuse at 10 mEq/hr. Repeat Potassium lab 1 hour after final administration. Protocol not for use in patients with CrCl less than 30 mL/min. 1255 (New Bag - Provider: Camilo Hernandez RN) sodium chloride flush 0.9 % injection 10 mL 10 mL, IntraVENous, PRN, Starting on Tu07/03/21 at 1250, Until Discontinued, Line Care sodium chloride flush 0.9 % injection 10 mL 10 mL, IntraVENous, PRN, Starting on Fri07/04/21 at 1932, Until Discontinued, Line Care sodium chloride flush 0.9 % injection 10 mL 10 mL, IntraVENous, PRN, Starting on Nohemy 07/05/21 at 1732, Until Discontinued, Line Care, For Line Patency: Peripheral IV = 5 mL; Midline or Central Line = 10 mL/lumen. If following IV push medication, administer flush at same rate as the IV push. Flush volume is determined by type of infusion therapy being given. For non-viscous solutions use: Peripheral IV = 5 mL Midline or Central Line = 10 mL/lumen For viscous solutions (i.e. blood components, parenteral nutrition, contrast media, or after obtaining blood sample) use: Peripheral IV = 10 mL Midline or Central Line = 20 mL/lumen sodium chloride flush 0.9 % injection 5-40 mL 5-40 mL, IntraVENous, PRN, Starting on Fri06/28/21 at 2107, Until Discontinued, Line Care, After every IV line use, For Line Patency: Peripheral IV = 5 mL; Midline or Central Line = 10 mL/lumen. If following IV push medication, administer flush at same rate as the IV push. Flush volume is determined by type of infusion therapy being given. For non-viscous solutions use: Peripheral IV = 5 mL Midline or Central Line = 10 mL/lumen For viscous solutions (i.e. blood components, parenteral nutrition, contrast media, or after obtaining blood sample) use: Peripheral IV = 10 mL Midline or Central Line = 20 mL/lumen sodium chloride flush 0.9 % injection 5-40 mL 5-40 mL, IntraVENous, PRN, Starting on Nohemy 06/28/21 at 1354, Until Discontinued, Line Care, After every IV line use, For Line Patency: Peripheral IV = 5 mL; Midline or Central Line = 10 mL/lumen. If following IV push medication, administer flush at same rate as the IV push. Flush volume is determined by type of infusion therapy being given. For non-viscous solutions use: Peripheral IV = 5 mL Midline or Central Line = 10 mL/lumen For viscous solutions (i.e. blood components, parenteral nutrition, contrast media, or after obtaining blood sample) use: Peripheral IV = 10 mL Midline or Central Line = 20 mL/lumen sodium chloride flush 0.9 % injection 5-40 mL 5-40 mL, IntraVENous, PRN, Starting on Fri07/06/21 at 2217, Until Discontinued, Line Care, After every IV line use, For Line Patency: Peripheral IV = 5 mL; Midline or Central Line = 10 mL/lumen. If following IV push medication, administer flush at same rate as the IV push. Flush volume is determined by type of infusion therapy being given. For non-viscous solutions use: Peripheral IV = 5 mL Midline or Central Line = 10 mL/lumen For viscous solutions (i.e. blood components, parenteral nutrition, contrast media, or after obtaining blood sample) use: Peripheral IV = 10 mL Midline or Central Line = 20 mL/lumen tiZANidine (ZANAFLEX) tablet 2 mg 2 mg, Oral, EVERY 8 HOURS PRN, Starting on Fri07/02/21 at 1157, Until Discontinued, Muscle spasms 0808 (Given - Provider: Sebas Arnold, RN) 0915 (Given - Provider: Sebas Arnold RN) Linked Groups Order Group 1: dextrose bolus 10% 125 mLJump to med 125 mL, IntraVENous, at 937.5 mL/hr, Administer over 8 Minutes, PRN, Other, Blood glucose 40 - 69 mg/dL and patient NOT ALERT or NPO, Starting on Nohemy 06/28/21 at 1616
If patient does not respond within 5 minutes, repeat dose x 1. Start D5W at 100 mL/hour until ordering provider can be reached. Repeat blood glucose in 15 minutes. If blood glucose is 40 - 69 mg/dL, repeat treatment and recheck blood glucose in 15 minutes x 2. If using Glucostabilizer, dose as instructed per system.
Or dextrose bolus 10% 250 mLJump to med 250 mL, IntraVENous, at 937.5 mL/hr, Administer over 16 Minutes, PRN, Other, Blood glucose LESS than 40 mg/dL and patient NOT ALERT or NPO, Starting on Nohemy 06/28/21 at 1616
If patient does not respond within 5 minutes, repeat dose x 1. Start D5W at 100 mL/hour until ordering provider can be reached. Repeat blood glucose in 15 minutes. If blood glucose is LESS than 40 mg/dL, repeat treatment and recheck blood glucose in 15 minutes x 2. If using Glucostabilizer, dose as instructed per system.
Group 2: ondansetron (ZOFRAN-ODT) disintegrating tablet 4 mgJump to med 4 mg, Oral, EVERY 8 HOURS PRN, Starting on Nohemy 06/28/21 at 2107, Until Discontinued, Nausea, Vomiting Or ondansetron (ZOFRAN) injection 4 mgJump to med 4 mg, IntraVENous, EVERY 6 HOURS PRN, Starting on Nohemy 06/28/21 at 2107, Until Discontinued, Nausea, Vomiting
Administer if oral route cannot be used.
Group 3: oxyCODONE (ROXICODONE) immediate release tablet 5 mgJump to med 5 mg, Oral, EVERY 4 HOURS PRN, Starting on Fri07/06/21 at 2217, Until Discontinued, Pain Moderate (4-6) Or oxyCODONE (ROXICODONE) immediate release tablet 10 mgJump to med 10 mg, Oral, EVERY 4 HOURS PRN, Starting on Fri07/06/21 at 2217, Until Discontinued, Pain Severe (7-10) Scheduled Medication Order 07/12/2021 07/13/2021 07/14/2021 azithromycin (ZITHROMAX) 500 mg in D5W 250ml Vial Mate (COMPLETED) 500 mg, IntraVENous, ONCE, 1 dose, On Fri07/13/21 at 2245, Antimicrobial Indications: Pneumonia (HAP) 2258 (New Bag - Provider: Marielena Marie RN) 0007 (Stopped - Provider: Bassam Camacho RN) HYDROcodone-acetaminophen (NORCO) 5-325 MG per tablet 1 tablet (COMPLETED) 1 tablet, Oral, ONCE, 1 dose, On 07/14/21 at 0215, Maximum dose of acetaminophen is 4000 mg from all sources in 24 hours. 0250 (Given - Provid er: Hina Ross RN) HYDROcodone-acetaminophen (NORCO) 5-325 MG per tablet 1 tablet (COMPLETED) 1 tablet, Oral, ONCE, 1 dose, On 07/14/21 at 0830, Maximum dose of acetaminophen is 4000 mg from all sources in 24 hours. 0832 (Given - Provid er: Farhana Minaya RN - Comment: neck and head) magnesium sulfate 1000 mg in dextrose 5% 100 mL IVPB (COMPLETED) 1,000 mg, IntraVENous, at 100 mL/hr, Administer over 1 Hours, ONCE, On Fri07/13/21 at 2315, For 1 dose 2346 (New Bag - Provider: Hina Ross RN) 0046 (Stopped - Provider: Kati Villarreal RN) piperacillin-tazobactam (ZOSYN) 3,375 mg in dextrose 5 % 50 mL IVPB (mini-bag) (COMPLETED) 3,375 mg, IntraVENous, ONCE, 1 dose, On Fri07/13/21 at 2315, Antimicrobial Indications: Pneumonia (HAP) 0003 (New Bag - Provider: Bassam Camacho, VIRGIE)0035 (Stopped - Provider: Bassam Camacho RN) piperacillin-tazobactam (ZOSYN) 3,375 mg in dextrose 5 % 50 mL IVPB (mini-bag) (COMPLETED) 3,375 mg, IntraVENous, ONCE, 1 dose, On 07/14/21 at 0515, Antimicrobial Indications: Pneumonia (HAP), Other, Other Abx Indication: C1 abscess 0554 (New Bag - Provider: Kati Villarreal RN)0621 (Stopped - Provider: Kati Villarreal RN) piperacillin-tazobactam (ZOSYN) 3,375 mg in dextrose 5 % 50 mL IVPB (mini-bag) (COMPLETED) 3,375 mg, IntraVENous, ONCE, 1 dose, On 07/14/21 at 1130, Antimicrobial Indications: Pneumonia (HAP) 1216 (New Bag - Provider: Rakesh Rodriguez RN)1245 (Stopped - Provider: Kati Villarreal RN) potassium bicarb-citric acid (EFFER-K) effervescent tablet 40 mEq (COMPLETED) 40 mEq, Oral, ONCE, 1 dose, On 07/13/21 at 2130, Do not chew or crush. Dissolve flavored tablets completely in 3 to 4 ounces of cold water; unflavored tablets may be dissolved in 3 to 4 ounces of cold juice. Patient to sip slowly over a 5 to 10 minute period. May further dilute if GI adverse effects occur. 2128 (Given - Provider: Rakesh Rodriguez RN) potassium bicarb-citric acid (EFFER-K) effervescent tablet 40 mEq (COMPLETED) 40 mEq, Oral, ONCE, 1 dose, On 07/14/21 at 0615, Do not chew or crush. Dissolve flavored tablets completely in 3 to 4 ounces of cold water; unflavored tablets may be dissolved in 3 to 4 ounces of cold juice. Patient to sip slowly over a 5 to 10 minute period. May further dilute if GI adverse effects occur. 0621 (Given - Provid er: Kati Villarreal RN) potassium chloride 10 mEq/100 mL IVPB (Peripheral Line) (COMPLETED) 40 mEq, IntraVENous, ONCE, 1 dose, On 07/14/21 at 0715, Administer over 4 Hours, at 100 mL/hr 0725 (New Bag - Provider: Kati Villarreal RN)1128 (Stopped - Provider: Kati Villarreal RN) Scheduled Medication Order 08/08/2021 08/09/2021 08/10/2021 aspirin tablet 325 mg 325 mg, Oral, DAILY, First dose on 07/16/21 at 1300, Until Discontinued 0900 (Automatically Held) 0900 (Automatically Held) 0900 (Automatically Held) calcium carbonate-vitamin D3 (CALTRATE) 600-400 MG-UNIT per tab 2 tablet 2 tablet, Oral, DAILY, First dose on 07/15/21 at 1245, Until Discontinued 1200 (Automatically Held) 1200 (Automatically Held) 1200 (Automatically Held) carvedilol (COREG) tablet 25 mg 25 mg, Oral, 2 TIMES DAILY WITH MEALS, First dose (after last modification) on 07/28/21 at 2100, Until Discontinued, Administer with food to minimize the risk of orthostatic hypotension 0850 (Given - Provider: Alejandra Goldberg RN)1710 (Not Given - Provider: Alejandra Goldberg RN - Reason: Contraindicated) 0800 (Given - Provider: Yolanda De La Fuente RN)1655 (Given - Provider: Yolanda De La Fuente RN) 0821 (Given - Provider: Anna Veliz RN)1721 (Given - Provider: Anna Veliz RN) chlordiazePOXIDE (LIBRIUM) capsule 10 mg (CANCELED) 10 mg, Oral, 3 TIMES DAILY, First dose on 08/05/21 at 1400, Until Discontinued 0851 (Given - Provider: Alejandra Goldberg RN) chlordiazePOXIDE (LIBRIUM) capsule 5 mg 5 mg, Oral, 2 times daily, First dose (after last modification) on 08/08/21 at 1200, Until Discontinued 1241 (Given - Provider: Alejandra Goldberg RN)2051 (Given - Provider: Maggi Multani RN) 0807 (Given - Provider: Yolanda De La Fuente RN)2033 (Given - Provider: Lubna Peralta, VIRGIE) 0820 (Given - Provider: Anna Veliz RN)2009 (Given - Provider: Lubna Peralta RN) enoxaparin (LOVENOX) injection 40 mg 40 mg, SubCUTAneous, DAILY, First dose (after last modification) on 07/14/21 at 1745, Until Discontinued, Indication of Use: Prophylaxis-DVT/PE 0851 (Given - Provider: Alejandra Goldberg RN) 0800 (Given - Provider: Yolanda De La Fuente RN) 0821 (Given - Provider: Anna Veliz, VIRGIE) famotidine (PEPCID) tablet 20 mg 20 mg, Per NG tube, 2 TIMES DAILY, First dose on Fri08/02/21 at 2100, Until Discontinued, IV to PO change per P&T policy 0850 (Given - Provider: Alejandra Goldberg RN)2051 (Given - Provider: Maggi Mulatni RN) 0801 (Given - Provider: Yolanda De La Fuente RN)2048 (Given - Provider: Lubna Peralta RN) 0821 (Given - Provider: Anna Veliz, VIRGIE)2021 (Given - Provider: Lubna Peralta RN) gabapentin (NEURONTIN) capsule 200 mg 200 mg, Oral, 3 TIMES DAILY, First dose on Fri07/19/21 at 0900, Until Discontinued 0850 (Given - Provider: Alejandra Goldberg RN)1558 (Given - Provider: Alejandra Goldberg RN)2051 (Given - Provider: Maggi Multani RN) 1030 (Given - Provider: Yolanda De La Fuente RN)1610 (Given - Provider: Yolanda De La Fuente RN)2205 (Given - Provider: Lubna Peralta RN) 1014 (Given - Provider: Anna Veliz RN)1517 (Given - Provider: Anna Veliz RN)2200 (Due - Provider: Linn Duvall [facility]) insulin glargine (LANTUS) injection vial 10 Units (COMPLETED) 10 Units, SubCUTAneous, ONCE, 1 dose, On Fri08/08/21 at 0800 0902 (Given - Provider: Alejandra Goldberg RN) insulin glargine (LANTUS) injection vial 10 Units 10 Units, SubCUTAneous, NIGHTLY, First dose (after last modification) on Fri08/10/21 at 2100, Until Discontinued 2024 (Given - Provider: Lubna Peralta RN - Comment: blood sugar 213mg/dl) insulin glargine (LANTUS) injection vial 5 Units (CANCELED) 5 Units, SubCUTAneous, NIGHTLY, First dose on Fri08/08/21 at 2100, Until Discontinued 2102 (Given - Provider: Maggi Multani RN) 2041 (Given - Provider: Lubna Peralta RN) insulin lispro (HUMALOG) injection vial 0-12 Units 0-12 Units, SubCUTAneous, EVERY 6 HOURS, First dose on Fri08/04/21 at 0915, Until Discontinued, Medium Dose Corrective Algorithm Glucose: Dose: If <139 No Insulin 140-199 2 Units 200-249 4 Units 250-299 6 Units 300-349 8 Units 350-400 10 Units Above 400 12 Units 0254 (Given - Provider: Nany Newman RN - Comment: BS 214)0911 (Given - Provider: Alejandra Goldberg RN)1601 (Given - Provider: Alejandra Goldberg RN)210 (Given - Provider: Maggi Multani RN) 025 (Not Given - Provider: Maggi Multani RN - Reason: Order parameters not met)0812 (Given - Provider: Yolanda D eLa Fuente RN - Comment: bs 202)165 (Given - Provider: Yolanda De La Fuente RN)2043 (Given - Provider: Lubna Peralta RN) 031 (Not Given - Provider: Lubna Peralta RN - Reason: Order parameters not met - Comment: blood sugar 133mg/dl)1012 (Given - Provider: Anna Veliz RN)1517 (Given - Provider: Anna Veliz RN)2027 (Given - Provider: Lubna Peralta RN) lactobacillus (CULTURELLE) capsule 1 capsule 1 capsule, Oral, DAILY WITH BREAKFAST, First dose on Nohemy 07/19/21 at 0815, Until Discontinued, Do not add to warm or hot foods or beverages. Caps may be opened & mixed in a cool beverage or sprinkled onto baby food or applesauce. Mix entire packet content into cool food or drink until dissolved. 0851 (Given - Provider: Alejandra Goldberg RN) 0800 (Given - Provider: Yolanda De La Fuente RN) 0821 (Given - Provider: Anna Veliz RN) latanoprost (XALATAN) 0.005 % ophthalmic solution 1 drop 1 drop, Both Eyes, NIGHTLY, First dose on Nohemy 07/19/21 at 2100, Until Discontinued 2052 (Given - Provider: Maggi Multani RN) 2034 (Given - Provider: Lubna Peralta RN) 2024 (Given - Provider: Lubna Peralta RN) levothyroxine (SYNTHROID) tablet 100 mcg 100 mcg, Oral, DAILY, First dose on 07/14/21 at 1730, Until Discontinued, Tube feeding (TF) interaction, obtain physician order to manage, recommend holding TF for 30 minutes before and after dose. 0901 (Given - Provider: Alejandra Goldberg RN) 0612 (Given - Provider: Maggi Multani RN) 0559 (Given - Provider: Lubna Peralta RN) metoclopramide (REGLAN) injection 5 mg (CANCELED) 5 mg, IntraVENous, EVERY 6 HOURS, First dose on 08/04/21 at 1600, Until Discontinued 0444 (Given - Provider: Nany Newman RN)1045 (Given - Provider: Alejandra Goldberg RN)1608 (Given - Provider: Alejandra Goldberg RN)2207 (Given - Provider: Maggi Multani RN) 0322 (Given - Provider: Maggi Multani RN)1013 (Not Given - Provider: Yolanda De La Fuente RN - Reason: Contraindicated - Comment: fms liquid stools) nafcillin 2,000 mg in dextrose 5 % 100 mL IVPB (mini-bag) 2,000 mg, IntraVENous, EVERY 6 HOURS, 112 doses, First dose on 07/18/21 at 1400, Last dose on Fri08/15/21 at 1030, Antimicrobial Indications: Bloodstream Infection, Bone and Joint Infection 0448 (New Bag - Provider: Nany Newman RN)0451 (Rate/Dose Verify - Provider: Nany Newman RN)0548 (Stopped - Provider: Nany Newman RN)0558 (Stopped - Provider: Nany Newman RN)1046 (New Bag - Provider: Alejandra Goldberg RN)1146 (Stopped - Provider: Alejandra Goldberg RN)1206 (Stopped - Provider: Aleajndra Goldberg RN)1608 (New Bag - Provider: Alejandra Goldberg RN)1611 (Rate/Dose Verify - Provider: Alaina Funes, VIRGIE)1708 (Stopped - Provider: Alaina Funes RN)1711 (Stopped - Provider: Alejandra Goldberg RN)2207 (New Bag - Provider: Maggi Multani RN)2307 (Stopped - Provider: Maggi Multani RN) 0343 (New Bag - Provider: Maggi Multani RN)0346 (Rate/Dose Verify - Provider: Yolanda De La Fuente RN)0443 (Stopped - Provider: Maggi Multani RN)1026 (New Bag - Provider: Yolanda De La Fuente RN)1031 (Rate/Dose Verify - Provider: Yolanda De La Fuente RN)1126 (Stopped - Provider: Yolanda De La Fuente RN)1614 (New Bag - Provider: Yolanda De La Fuente RN)1616 (Rate/Dose Verify - Provider: Yolanda De La Fuente RN)1638 (Rate/Dose Verify - Provider: Yolanda De La Fuente RN)1714 (Stopped - Provider: Yolanda De La Fuente RN)2207 (New Bag - Provider: Lubna Peralta RN)2307 (Stopped - Provider: Lubna Peralta RN) 0036 (Stopped - Provider: Lubna Peralta RN)0413 (New Bag - Provider: Lubna Peralta RN)0415 (Rate/Dose Verify - Provider: Lubna Peralta RN)0513 (Stopped - Provider: Lubna Peralta RN)0542 (Stopped - Provider: Lubna Peralta RN)1015 (New Bag - Provider: Anna Veliz RN)1015 (Rate/Dose Verify - Provider: Anna Veliz RN)1115 (Stopped - Provider: Anna Veliz RN)1649 (New Bag - Provider: Anna Veliz RN)1650 (Rate/Dose Verify - Provider: Anna Veliz RN)1749 (Stopped - Provider: Anna Veliz RN)2230 (Due - Provider: Loulou Vickers) oxyCODONE (ROXICODONE) immediate release tablet 10 mg 10 mg, Oral, EVERY 6 HOURS, First dose on Fri08/01/21 at 1430, Until Discontinued 0254 (Given - Provider: Nany Newman RN)0850 (Given - Provider: Alejandra Goldberg RN)1400 (Not Given - Provider: Alejandra Goldberg RN - Reason: Other - Comment: Not given due to recent prn given)2051 (Given - Provider: Maggi Multani RN) 025 (Given - Provider: Maggi Multani RN - Comment: hypotension)0807 (Given - Provider: Yolanda De La Fuente RN)141 (Given - Provider: Yolanda De La Fuente RN)2033 (Given - Provider: Lubna Peralta RN) 021 (Given - Provider: Lubna Peralta RN)0820 (Given - Provider: Anna Veliz RN)142 (Given - Provider: Anna Veliz RN)2009 (Given - Provider: Lubna Peralta RN) potassium bicarb-citric acid (EFFER-K) effervescent tablet 40 mEq 40 mEq, Oral, 4 TIMES DAILY, 8 doses, First dose on Fri07/17/21 at 1700, Last dose on Fri07/19/21 at 1300, Do not chew or crush. Dissolve flavored tablets completely in 3 to 4 ounces of cold water; unflavored tablets may be dissolved in 3 to 4 ounces of cold juice. Patient to sip slowly over a 5 to 10 minute period. May further dilute if GI adverse effects occur. QUEtiapine (SEROQUEL) tablet 25 mg 25 mg, Oral, NIGHTLY, First dose (after last modification) on Fri08/08/21 at 2200, Until Discontinued 2051 (Given - Provider: Maggi Multani RN) 2204 (Given - Provider: Lubna Peralta RN) 2199 (Due - Provider: Linn Duvall [facility]) valproic acid (DEPAKENE) 250 MG/5ML oral solution 250 mg 250 mg, Per NG tube, 2 TIMES DAILY, First dose on Fri08/02/21 at 2100, Until Discontinued 08 (Given - Provider: Alejandra Goldberg RN)2051 (Given - Provider: Maggi Multani RN) 1012 (Given - Provider: Yolanda De La Fuente RN)2033 (Given - Provider: Lubna Peralta RN) 0821 (Given - Provider: Anna Veliz RN)2021 (Given - Provider: Lubna Peralta RN) Continuous Medication Order 08/08/2021 08/09/2021 08/10/2021 0.9 % sodium chloride infusion IntraVENous, at 10 mL/hr, CONTINUOUS, Starting on Fri07/29/21 at 0830 0621 (New Bag - Provider: Nany Newman RN)1020 (Rate/Dose Verify - Provider: Alejandra Goldberg RN)1247 (Rate/Dose Verify - Provider: Alejandra Goldberg, RN)1842 (Rate/Dose Verify - Provider: Alaina Funes RN) 0443 (Rate/Dose Verify - Provider: Yolanda De La Fuente RN)0752 (Rate/Dose Verify - Provider: Yolanda De La Fuente RN)1025 (New Bag - Provider: Yolanda De La Fuente RN)1025 (Rate/Dose Verify - Provider: Yolanda De La Fuente RN)1126 (Rate/Dose Verify - Provider: Yolanda De La Fuente RN)1258 (Rate/Dose Verify - Provider: Yolanda De La Fuente RN)1614 (Stopped - Provider: Yolanda De La Fuente RN)1852 (Restarted - Provider: Yolanda De La Fuente RN)2000 (Rate/Dose Verify - Provider: Lubna Peralta RN) 0407 (Rate/Dose Verify - Provider: Lubna Peralta RN)0623 (Rate/Dose Verify - Provider: Lubna Peralta RN)0747 (Rate/Dose Verify - Provider: Lubna Peralta RN)0822 (New Bag - Provider: Anna Veliz RN)0822 (Rate/Dose Verify - Provider: Anna Veliz RN)1258 (Rate/Dose Verify - Provider: Anna Veliz RN)1544 (Rate/Dose Verify - Provider: Anna Veliz RN)1910 (Rate/Dose Verify - Provider: Anna Veliz, VIRGIE) dexmedetomidine (PRECEDEX) 400 mcg in sodium chloride 0.9 % 100 mL infusion 0.1-1.5 mcg/kg/hr 60.6 kg (1.515-22.725 mL/hr, rounded to 1.5-22.7 mL/hr), IntraVENous, CONTINUOUS, Starting on Fri08/01/21 at 1430, Until Discontinued, Titrate Infusion? Yes, Initial Infusion Dose: 0.2 mcg/kg/hr, Goal of Therapy: RASS of -1 to 0, Contact Provider if: New onset HR less than 50 bpm, New onset SBP less than 90 mmHg, Patient is receiving maximum dose and is not achieving the goal of therapy, If Titrate Infusion? is No : Disregard instructions below. If Titrate infusion? is Yes : Titrate in increments of 0.2 mcg/kg/hr no more frequently than every 30 minutes to goal of therapy. If after titration rate change patient exhibits adverse hemodynamic response, next titration rate change may be adjusted by one-half of the previous rate change. If patient fails sedation interruption, resume dexmedetomidine infusion at 50% of previous rate. 0108 (Rate/Dose Change - Provider: Nany Newman RN)0302 (Rate/Dose Verify - Provider: Nany Newman RN)0307 (New Bag - Provider: Nany Newman RN)0307 (Rate/Dose Verify - Provider: Nany Newman RN)0621 (Rate/Dose Verify - Provider: Nany Newman RN)0735 (Handoff - Provider: Nany Newman RN)1020 (Rate/Dose Verify - Provider: Alejandra Goldberg RN)1026 (Rate/Dose Change - Provider: Alejandra Goldberg RN)1031 (Rate/Dose Change - Provider: Alejandra Goldberg RN)1247 (Rate/Dose Verify - Provider: Alejandra Goldberg RN)1842 (Rate/Dose Verify - Provider: Alaina Funes RN)1850 (Rate/Dose Verify - Provider: Yolanda De La Fuente RN)1851 (Rate/Dose Verify - Provider: Yolanda De La Fuente RN)1925 (Handoff - Provider: Alejandra Goldberg RN)203 (Rate/Dose Verify - Provider: Yolanda De La Fuente RN)203 (Rate/Dose Verify - Provider: Yolanda De La Fuente RN)211 (Rate/Dose Verify - Provider: Yolanda De La Fuente RN)211 (Rate/Dose Verify - Provider: Yolanda De La Fuente RN)2116 (New Bag - Provider: Maggi Multani RN) 0752 (Rate/Dose Verify - Provider: Yolanda De La Fuente RN)1258 (Rate/Dose Verify - Provider: Yolanda De La Fuente RN)1346 (Rate/Dose Verify - Provider: Yolanda De La Fuente RN)1347 (Rate/Dose Verify - Provider: Yolanda De La Fuente RN)1413 (Rate/Dose Verify - Provider: Yolanda De La Fuente RN)1513 (Rate/Dose Verify - Provider: Yolanda De La Fuente RN)1514 (New Bag - Provider: Destiny Houston RN)1638 (Rate/Dose Verify - Provider: Yolanda De La Fuente RN)1852 (Rate/Dose Verify - Provider: Yolanda De La Fuente RN)1917 (Handoff - Provider: Yolanda De La Fuente RN)2000 (Rate/Dose Verify - Provider: Lubna Peralta RN) 0335 (New Bag - Provider: Lubna Peralta RN)0407 (Rate/Dose Verify - Provider: Lubna Peralta RN)0623 (Rate/Dose Verify - Provider: Lubna Peralta RN)0727 (Handoff - Provider: Lubna Peralta RN)0747 (Rate/Dose Verify - Provider: Lubna Peralta RN)1258 (Rate/Dose Verify - Provider: Anna Veliz RN)1544 (Rate/Dose Verify - Provider: Anna Veliz RN)1909 (Handoff - Provider: Anna Veliz RN)1910 (Rate/Dose Verify - Provider: Anna Veliz RN)2033 (New Bag - Provider: Lubna Peralta RN) PRN Medication Order 08/08/2021 08/09/2021 08/10/2021 acetaminophen (TYLENOL) suppository 650 mg(Linked Group 1) 650 mg, Rectal, EVERY 6 HOURS PRN, Starting on 07/14/21 at 1639, Until Discontinued, Pain Mild (1-3), Fever, For temp greater than 100.4 F (38 C), Administer if oral route cannot be used. acetaminophen (TYLENOL) tablet 650 mg(Linked Group 1) 650 mg, Oral, EVERY 6 HOURS PRN, Starting on 07/14/21 at 1639, Until Discontinued, Pain Mild (1-3), Fever, For temp greater than 100.4 F (38 C), Maximum dose of acetaminophen is 4000 mg from all sources in 24 hours. bisacodyl (DULCOLAX) suppository 10 mg 10 mg, Rectal, DAILY PRN, Starting on Fri07/29/21 at 0614, Until Discontinued, Constipation dextrose 5 % solution 100 mL/hr, IntraVENous, PRN, Low blood sugar, Starting on 07/14/21 at 1639, Start infusion following administration of dextrose 50% or glucagon. dextrose bolus 10% 125 mL(Linked Group 2) 125 mL, IntraVENous, at 937.5 mL/hr, Administer over 8 Minutes, PRN, Other, Blood glucose 40 - 69 mg/dL and patient NOT ALERT or NPO, Starting on 07/14/21 at 1639, Start D5W at 100 mL/hour until ordering provider can be reached. Repeat blood glucose in 15 minutes. If blood glucose is 40 - 69 mg/dL, repeat treatment and recheck blood glucose in 15 minutes x 2. If using Glucostabilizer, dose as instructed per system. dextrose bolus 10% 250 mL(Linked Group 2) 250 mL, IntraVENous, at 937.5 mL/hr, Administer over 16 Minutes, PRN, Other, Blood glucose LESS than 40 mg/dL and patient NOT ALERT or NPO, Starting on 07/14/21 at 1639, Start D5W at 100 mL/hour until ordering provider can be reached. Repeat blood glucose in 15 minutes. If blood glucose is LESS than 40 mg/dL, repeat treatment and recheck blood glucose in 15 minutes x 2. If using Glucostabilizer, dose as instructed per system. fentaNYL (SUBLIMAZE) injection 50 mcg (CANCELED) 50 mcg, IntraVENous, EVERY 1 HOUR PRN, Starting on Fri08/07/21 at 0545, Until Fri08/10/21 at 0758, Pain Mild (1-3), Pain Moderate (4-6), Pain Severe (7-10), Per CPOT scale, If oral and IV narcotics ordered, use oral first and only use IV if oral is ineffective or cannot take oral. Do Not give oral and IV within 1 hour of each other unless specifically ordered. 1306 (Given - Provider: Alejandra Goldberg RN - Comment: see cpot) 1055 (Given - Provider: Yolanda De La Fuente RN) glucagon (rDNA) injection 1 mg 1 mg, IntraMUSCular, PRN, Starting on 07/14/21 at 1639, Until Discontinued, Low blood sugar, Blood glucose less than 70 mg/dL and patient NOT ALERT or NPO and does not have IV access., After administration, attempt intravenous access and start D5W at 100 mL/hr. Repeat blood glucose in 15 minutes x2 and notify provider. Loperamide HCl (IMODIUM) 1 MG/7.5ML solution 2 mg 2 mg, Oral, 4 TIMES DAILY PRN, Starting on 08/04/21 at 0758, Until Discontinued, Diarrhea, After each loose stool. LORazepam (ATIVAN) injection 2 mg 2 mg, IntraVENous, EVERY 4 HOURS PRN, Starting on 07/28/21 at 0201, Until Discontinued, Anxiety 0444 (Given - Provider: Nany Newman, RN)1554 (Given - Provider: Alejandra Goldberg, VIRGIE)2236 (Given - Provider: Maggi Multani, VIRGIE) 1119 (Given - Provider: Yolanda De La Fuente, VIRGIE)1715 (Given - Provider: Yolanda De La Fuente, VIRGIE) 0050 (Given - Provider: Lubna Peralta, VIRGIE) magnesium hydroxide (MILK OF MAGNESIA) 400 MG/5ML suspension 30 mL 30 mL, Per NG tube, DAILY PRN, Starting on 08/04/21 at 0800, Until Discontinued, Constipation magnesium sulfate 1000 mg in dextrose 5% 100 mL IVPB 1,000 mg, IntraVENous, at 100 mL/hr, Administer over 1 Hours, PRN, Other, Per Magnesium IV Replacement Protocol, Starting on 07/14/21 at 1639, Mg Lab Replacement Action 1.4-1.6 1 gram IVPB x 2 doses (2 gram Total) 1.0-1.3 1 gram IVPB x 4 doses (4 gram Total) <1.0 CALL PHYSICIAN and 1 gram IVPB x 4 doses (4 gram Total) Infuse at 1 gram/hr Repeat Mag level next AM Protocol not for use in Patients with CrCl<30ml/min ondansetron (ZOFRAN) injection 4 mg(Linked Group 3) 4 mg, IntraVENous, EVERY 6 HOURS PRN, Starting on 07/14/21 at 1639, Until Discontinued, Nausea, Vomiting, Administer if oral route cannot be used. ondansetron (ZOFRAN-ODT) disintegrating tablet 4 mg(Linked Group 3) 4 mg, Oral, EVERY 8 HOURS PRN, Starting on Fri07/14/21 at 1639, Until Discontinued, Nausea, Vomiting potassium bicarb-citric acid (EFFER-K) effervescent tablet 40 mEq(Linked Group 4) 40 mEq, Oral, PRN, Starting on Fri07/25/21 at 0628, Until Discontinued, Per Potassium Replacement Protocol, Administer as alternative if patient unable to tolerate oral tablet. K Lab Replacement Action 3.1 to 3.5 40 mEq ORAL x 1 Under 3.1 Refer to IV replacement protocol Recheck K level in AM. Protocol not for use in patients with CrCl less than 30 mL/min. Do not chew or crush. Dissolve flavored tablets completely in 3 to 4 ounces of cold water; unflavored tablets may be dissolved in 3 to 4 ounces of cold juice. Patient to sip slowly over a 5 to 10 minute period. May further dilute if GI adverse effects occur. 0646 (See Alternativ e - Provider: Lubna Peralta RN) potassium chloride (KLOR-CON M) extended release tablet 40 mEq(Linked Group 4) 40 mEq, Oral, PRN, Starting on Fri07/25/21 at 0628, Until Discontinued, Potassium Replacement, May give alternative linked oral order (ordered as effervescent, packet, or liquid solution) if patient unable to tolerate tablet. K Lab Replacement Action 3.1 to 3.5 40 mEq ORAL x 1 Under 3.1 Refer to IV replacement protocol Recheck K level in AM. Protocol not for use in patients with CrCl less than 30 mL/min. 0646 (Given - Provider: Lubna Peralta RN - Comment: potassium result 3.3) potassium chloride 10 mEq/100 mL IVPB (Peripheral Line)(Linked Group 4) 10 mEq, IntraVENous, PRN, Starting on Fri07/25/21 at 0628, Until Discontinued, at 100 mL/hr, Potassium Replacement, K Lab Replacement Action 2.7 to 3.0 10 mEq IVPB x 6 doses (60 mEq Total) Under 2.7 CALL PROVIDER and administer 10 mEq IVPB x 6 doses (60 mEq Total) Infuse at 10 mEq/hr. Repeat Potassium lab 1 hour after final administration. Protocol not for use in patients with CrCl less than 30 mL/min. 0646 (See Alternativ e - Provider: Lubna Peralta RN) sodium chloride flush 0.9 % injection 5-40 mL 5-40 mL, IntraVENous, PRN, Starting on 07/14/21 at 1639, Until Discontinued, Line Care, After every IV line use, For Line Patency: Peripheral IV = 5 mL; Midline or Central Line = 10 mL/lumen. If following IV push medication, administer flush at same rate as the IV push. Flush volume is determined by type of infusion therapy being given. For non-viscous solutions use: Peripheral IV = 5 mL Midline or Central Line = 10 mL/lumen For viscous solutions (i.e. blood components, parenteral nutrition, contrast media, or after obtaining blood sample) use: Peripheral IV = 10 mL Midline or Central Line = 20 mL/lumen Linked Groups Order Group 1: acetaminophen (TYLENOL) tablet 650 mgJump to med 650 mg, Oral, EVERY 6 HOURS PRN, Starting on 07/14/21 at 1639, Until Discontinued, Pain Mild (1-3), Fever, For temp greater than 100.4 F (38 C)
Maximum dose of acetaminophen is 4000 mg from all sources in 24 hours.
Or acetaminophen (TYLENOL) suppository 650 mgJump to med 650 mg, Rectal, EVERY 6 HOURS PRN, Starting on 07/14/21 at 1639, Until Discontinued, Pain Mild (1-3), Fever, For temp greater than 100.4 F (38 C)
Administer if oral route cannot be used.
Group 2: dextrose bolus 10% 125 mLJump to med 125 mL, IntraVENous, at 937.5 mL/hr, Administer over 8 Minutes, PRN, Other, Blood glucose 40 - 69 mg/dL and patient NOT ALERT or NPO, Starting on 07/14/21 at 1639
Start D5W at 100 mL/hour until ordering provider can be reached. Repeat blood glucose in 15 minutes. If blood glucose is 40 - 69 mg/dL, repeat treatment and recheck blood glucose in 15 minutes x 2. If using Glucostabilizer, dose as instructed per system.
Or dextrose bolus 10% 250 mLJump to med 250 mL, IntraVENous, at 937.5 mL/hr, Administer over 16 Minutes, PRN, Other, Blood glucose LESS than 40 mg/dL and patient NOT ALERT or NPO, Starting on 07/14/21 at 1639
Start D5W at 100 mL/hour until ordering provider can be reached. Repeat blood glucose in 15 minutes. If blood glucose is LESS than 40 mg/dL, repeat treatment and recheck blood glucose in 15 minutes x 2. If using Glucostabilizer, dose as instructed per system.
Group 3: ondansetron (ZOFRAN-ODT) disintegrating tablet 4 mgJump to med 4 mg, Oral, EVERY 8 HOURS PRN, Starting on 07/14/21 at 1639, Until Discontinued, Nausea, Vomiting Or ondansetron (ZOFRAN) injection 4 mgJump to med 4 mg, IntraVENous, EVERY 6 HOURS PRN, Starting on 07/14/21 at 1639, Until Discontinued, Nausea, Vomiting
Administer if oral route cannot be used.
Group 4: potassium chloride (KLOR-CON M) extended release tablet 40 mEqJump to med 40 mEq, Oral, PRN, Starting on Fri07/25/21 at 0628, Until Discontinued, Potassium Replacement
May give alternative linked oral order (ordered as effervescent, packet, or liquid solution) if patient unable to tolerate tablet. K Lab Repla cemen t Action 3.1 to 3.5 40 mEq ORAL x 1 Under 3.1 Refer to IV replacement protocol Recheck K level in AM. Protocol not for use in patients with CrCl less than 30 mL/min.
Or potassium bicarb-citric acid (EFFER-K) effervescent tablet 40 mEqJump to med 40 mEq, Oral, PRN, Starting on Fri07/25/21 at 0628, Until Discontinued, Per Potassium Replacement Protocol
Administer as alternative if patient unable to tolerate oral tablet. K Lab Repla cemen t Action 3.1 to 3.5 40 mEq ORAL x 1 Under 3.1 Refer to IV replacement protocol Recheck K level in AM. Protocol not for use in patients with CrCl less than 30 mL/min. Do not chew or crush. Dissolve flavored tablets completely in 3 to 4 ounces of cold water; unflavored tablets may be dissolved in 3 to 4 ounces of cold juice. Patient to sip slowly over a 5 to 10 minute period. May further dilute if GI adverse effects occur.
Or potassium chloride 10 mEq/100 mL IVPB (Peripheral Line)Jump to med 10 mEq, IntraVENous, PRN, Starting on Fri07/25/21 at 0628, Until Discontinued, at 100 mL/hr, Potassium Replacement
K Lab Replacement Action 2.7 to 3.0 10 mEq IVPB x 6 doses (60 mEq Total) Under 2.7 CALL PROVIDER and administer 10 mEq IVPB x 6 doses (60 mEq Total) Infuse at 10 mEq/hr. Repeat Potassium lab 1 hour after final administration. Protocol not for use in patients with CrCl less than 30 mL/min.
Ordered Prescriptions (unrec ognized section and content) Prescription Sig Dispensed Refills Start Date End Da lactobacillus (CULTURELLE) capsule Take 1 capsule by mouth daily (with breakfast) 30 capsule 0 07/11/2021 08/10/2021 valproic acid (DEPAKENE) 250 MG/5ML SOLN oral solution Take 5 mLs by mouth in the morning and at bedtime 300 mL 0 07/10/2021 08/09/2021 gabapentin (NEURONTIN) 100 MG capsule Take 2 capsules by mouth 3 times daily for 15 days. 90 capsule 0 07/10/2021 07/25/2021 fluconazole (DIFLUCAN) 200 MG tablet Take 1 tablet by mouth daily for 6 doses 6 tablet 0 07/10/2021 07/16/2021 levothyroxine (SYNTHROID) 100 MCG tablet Take 1 tablet by mouth Daily 30 tablet 3 07/11/2021 nafcillin infusion Infuse 2,000 mg intravenously every 4 hours Till 08/20/21 Then stop iv AB and pull the line Cbc diff and creat q MWF while on this AB Compound per protocol 504 g 0 07/09/2021 08/20/2021 doxycycline hyclate (VIBRA-TABS) 100 MG tablet Take 1 tablet by mouth 2 times daily Start 08/21/21 after all the iv AB is over - keep long-term suppression 60 tablet 11 07/09/2021 07/09/2021 Prescription Sig Dispensed Refills Start Date End Da oxyCODONE (ROXICODONE) 5 MG immediate release tabletIndications:A bscess in epidural space of cervical spine Take 2 tablets by mouth every 4 hours for 1 day. 10 tablet 0 08/10/2021 08/11/2021 nafcillin 2 g injection Infuse 2,000 mg intravenously every 6 hours for 13 days 52 each 0 08/10/2021 08/23/2021 QUEtiapine (SEROQUEL) 25 MG tablet Take 1 tablet by mouth nightly 60 tablet 3 08/10/2021 LORazepam (ATIVAN) 2 MG/ML injectionIndication s:Encephalopathy Infuse 1 mL intravenously every 4 hours as needed (anxiety, agitation) for up to 30 days. 10 mL 3 08/10/2021 09/09/2021 famotidine (PEPCID) 20 MG tablet 1 tablet by Per NG tube route 2 times daily 60 tablet 3 08/10/2021 dexmedetomidine HCl in NaCl (PRECEDEX) 400 MCG/100ML SOLN infusion Infuse 6.06-90.9 mcg/hr intravenously continuous 100 mL 5 08/10/2021 chlordiazePOXIDE (LIBRIUM) 5 MG capsuleIndications: Encephalopathy Take 1 capsule by mouth in the morning and at bedtime for 30 days. 60 capsule 0 08/10/2021 09/09/2021 bisacodyl (DULCOLAX) [address] 1 suppository rectally daily as needed for Constipation 30 suppository 1 08/10/2021 10/09/2021 potassium bicarb-citric acid (EFFER-K) 20 MEQ TBEF effervescent tablet 2 tablets by Per NG tube route in the morning, at noon, and at bedtime 120 tablet 0 07/19/2021 calcium carbonate-vitamin D3 (CALTRATE) 600-400 MG-UNIT TABS per tab Take 2 tablets by mouth daily 60 tablet 1 07/20/2021 Goals (unrecognized section and content) Goals may be documented in a n alternate section FOR RECORDS PERTAINING TO PATIENTS WHO ARE OR HAVE BEEN ENROLLED IN A CHEMICAL DEPENDENCY/SUBSTANCEABUSE PROGRAM, SOME INFORMATION MAY BE OMITTED. This clinical summary was aggregated from multiple sources. Caution should be exercised in using it in the provision of clinical care. This summary normalizes information from multiple sources, and as a consequence, information in this document may materially change the coding, format and clinical context of patient data. In addition, data may be omitted in some cases. CLINICAL DECISIONS SHOULD BE BASED ON THE PRIMARY CLINICAL RECORDS. [employer] provides no warranty or guarantee of the accuracy or completeness of information in this document.
== END 2023-12-20 02:10 | disposition home or self-care (01) ==
PROVIDERS: Emergency Provider Internal Medicine; PCP Nurse Practitioner
DX: R13.10 Dysphagia, unspecified (principal); H53.2 Diplopia
CPT/HCPCS: 36415; 70491; 71046; 80053; 83605; 85025; 99285; Q9966

== ENCOUNTER 2023-12-29 09:47 | Outpatient (OUT) | payer MEDICARE, MEDICAID, SELFPAY ==
--- NOTE | 2023-12-29 | FL_ITS ---
The [address] [address] Patient Name: MEG FERNANDEZ MRN: [id number] date: 1965 Sex: F Assigned Patient Location: OR Current Patient Location: OR Accession/Order Number: [id number] Exam Date: 12/29/2023 10:04 Report Date: 12/29/2023 11:10 At the request of: LUIS DANIEL LEWIS Procedure: FL modified barium swallow EXAMINATION: FL modified barium swallow HISTORY: DYSPHAGIA, MAJOR DEPRESSIVE ORDER FLUORO DOSE: Unknown COMPARISON: No relevant comparison available. TECHNIQUE: A swallowing evaluation was performed with fluoroscopy in the usual manner. Standard level fluoroscopic mode of operation utilized. FINDINGS: ORAL PHASE: Normal deglutition. PHARYNGEAL PHASE: Normal swallowing. ASPIRATION: None. STRUCTURE: Normal. No visible obstruction, stricture, or dilatation. OTHER: The patient did have a cough during the exam however no penetration or aspiration was observed throughout the course of the exam. FL/FL modified barium swallow IMPRESSION: Normal exam Electronically authenticated by: JOS SEVERINO Date: 12/29/2023 11:10
== END 2023-12-29 09:48 | disposition home or self-care (01) ==
LOC: FL 09:47
PROVIDERS: PCP Nurse Practitioner; Visit Provider Nurse Practitioner
DX: R13.10 Dysphagia, unspecified (principal); F33.1 Major depressive disorder, recurrent, moderate; Z78.9 Other specified health status; Z68.24 Body mass index [BMI] 24.0-24.9, adult
CPT/HCPCS: 74230; 92611

== ENCOUNTER 2024-03-10 21:33 | Emergency (ER) | payer MEDICARE, MEDICAID, SELFPAY ==
[2024-03-10 21:34] VITALS: BP 150/94; PULSE 86; TEMP 36.8; O2SAT 98; BMI 28.3
--- NOTE | 2024-03-10 21:43 | CT_ITS ---
The [address] [address] Patient Name: MEG FERNANDEZ MRN: [id number] date: 1965 Sex: F Assigned Patient Location: ER Current Patient Location: .MAIN Accession/Order Number: [id number] Exam Date: 03/10/2024 21:50 Report Date: 03/10/2024 22:39 At the request of: MARILIN THORNTON Procedure: CT lumbar spine wo con EXAM: CT lumbar spine wo con HISTORY: fall COMPARISON: None. TECHNIQUE: Axial images of the lumbar spine were obtained without contrast enhancement. Sagittal and coronal reformations were provided. COMMENT: Due to obscuration of extradural fat planes and associated loss of natural contrast, the post operative spine is suboptimally assessed with noncontrast CT. Streak artifact related to spinal hardware degrades image quality and further limits assessment of the spinal canal, vertebral column and adjacent soft tissues in the region of surgical change. FINDINGS: ALIGNMENT/BONY STRUCTURES: No CT evidence of an acute fracture, subluxation or loss of vertebral body height. While no significant loss of disc space, there are multilevel endplate osteophytes which bridge the anterior disc space at several levels. CORD/CONUS: The cord and conus are poorly seen and not well evaluated. OTHER SPINAL FINDINGS: There are postoperative changes involving the lumbar vertebral with laminectomy at L4. A portion of the overlying L3 lamina and facet joint on the right have also been removed. Fusion of the L4 and L5 vertebral bodies across the disc space is noted and may also be postoperative. DISC SPACES: T12-L1: No disc protrusion, significant disc bulging or evidence of spinal canal stenosis. The neural foramina are patent. L1-L2: No disc protrusion, significant disc bulging or evidence of spinal canal stenosis. The neural foramina are patent. L2-L3: No disc protrusion, significant disc bulging or evidence of spinal canal stenosis. The neural foramina are patent. L3-L4: Postoperative change. Residual disc bulging abuts and flattens the ventral thecal sac no spinal canal stenosis. Residual facet degenerative change and mild foraminal narrowing are present on the left. The neural foramen on the right is patent.. L4-L5: Postoperative change. No spinal canal stenosis. There is mild foraminal narrowing. L5-S1: No disc protrusion, significant disc bulging or evidence of spinal canal stenosis. Facet degenerative change is seen. Mild foraminal narrowing is noted. CT/CT lumbar spine wo con IMPRESSION: 1. Postoperative and residual degenerative change of the lumbar vertebral column. 2. No CT evidence of an acute fracture Electronically authenticated by: LUIS HERNANDEZ Date: 03/10/2024 22:39
--- NOTE | 2024-03-10 21:46 | ED_ITS ---
HPI HPI - General Adult General Chief complaint: Back Pain/Injury Stated complaint: back pain Time Seen by Provider: 03/10/24 21:34 Source: patient Mode of arrival: ambulance Limitations: no limitations History of Present Illness HPI narrative: 59-year-old female presents to the emergency department for lower back pain. She lives in an [facility] and apparently fell about a week ago. It does not seem that she has been evaluated since that fall. She does not have any other complaints other than her lower back. No weakness or numbness in her legs. The pain is moderate to severe. Related Data Home Medications ?Medication ?Instructions ?Recorded ?Confirmed aspirin 325 mg tablet 325 mg PO DAILY 12/19/23 03/10/24 brimonidine 0.2 % eye drops 1 drp ophthalmic (eye) BID 12/19/23 03/10/24 carvedilol 12.5 mg tablet 12.5 mg PO Q12H 12/19/23 03/10/24 cholecalciferol (vitamin D3) 10 400 unit PO DAILY 12/19/23 03/10/24 mcg (400 unit) tablet (Vitamin D3) divalproex 500 mg tablet,delayed 500 mg PO DAILY 12/19/23 03/10/24 release docusate sodium 100 mg capsule 100 mg PO BID PRN constipation 12/19/23 03/10/24 duloxetine 60 mg capsule,delayed 60 mg PO DAILY 12/19/23 03/10/24 release ferrous sulfate 325 mg (65 mg 325 mg PO DAILY 12/19/23 03/10/24 iron) tablet fluocinonide 0.05 % topical 1 applic topical DAILY PRN rash 12/19/23 12/20/23 ointment guaifenesin 100 mg/5 mL oral liquid 200 mg PO Q6H PRN congestion 12/19/23 12/19/23 guaifenesin 600 mg tablet, 600 mg PO BID PRN congestion 12/19/23 03/10/24 extended release 12 hr (Mucinex) insulin glargine 100 unit/mL (3 15 unit subcut DAILY 12/19/23 03/10/24 mL) subcutaneous pen (Lantus Solostar U-100 Insulin) levothyroxine 100 mcg tablet 100 mcg PO DAILY 12/19/23 03/10/24 loperamide 2 mg capsule 2 mg PO Q6H PRN loose stool 12/19/23 03/10/24 multivitamin 1 tab PO DAILY 12/19/23 03/10/24 omeprazole 40 mg capsule,delayed 40 mg PO DAILY 12/19/23 03/10/24 release potassium chloride 20 mEq 20 meq PO DAILY 12/19/23 03/10/24 tablet,extended release(part/cryst) sucralfate 100 mg/mL oral 1 g PO TID 12/19/23 03/10/24 suspension (Carafate) tramadol 50 mg tablet 50 mg PO Q12H 12/19/23 03/10/24 cholecalciferol (vitamin D3) 25 25 mcg PO DAILY 03/10/24 03/10/24 mcg (1,000 unit) tablet Allergies Allergy/AdvReac Type Severity Reaction Status Date / Time cephalexin Allergy Unknown Verified 12/19/23 20:32 moxifloxacin (From Avelox) Allergy Unknown Verified 12/19/23 20:32 polyethylene glycol 3350 Allergy Unknown Verified 12/19/23 20:32 (From Miralax) Opioid HPI Opioid Management Most Recent Opioid Data: Last Pain Scale 7 03/10/24 21:49 03/10/24 Last ED Pain Assessment 03/10/24 21:49 Review of Systems ROS Narrative A ten point review of systems is negative except as noted above. PFSH PFSH Social History Little interest or pleasure in doing things: not at all Feeling down, depressed, or hopeless: not at all Exam Narrative Exam Narrative: Nurses note and vital signs reviewed and patient is not hypoxic. General: The patient appears uncomfortable. Skin: Warm, dry, no pallor noted. There is no rash noted. Head: Normocephalic, atraumatic Eye: Normal conjunctiva, no drainage Ears, Nose, Mouth, and Throat: oral mucosa is moist. Nares patent. Cardiovascular: Regular Rate and Rhythm Respiratory: Patient is in no distress, no accessory muscle use, lungs are clear to auscultation, no wheezing, rales or rhonchi Back: No deformity GI: Soft and nontender Musculoskeletal: The patient has no evidence of calf tenderness, no pitting edema, symmetrical pulses noted bilaterally. No palpable tenderness in her hips or knees or ankles. Upper extremities are nontender as well. Neurological: A&O x4, normal speech, somewhat tremorous Psychiatric: Cooperative Constitutional Vital Signs, click to edit/add: Last Vital Signs Temp 98.3 F 03/10/24 21:34 Pulse 86 03/10/24 21:34 Resp 18 03/10/24 21:34 BP 150/94 H 03/10/24 21:34 Pulse Ox 98 03/10/24 21:34 O2 Del Method Room Air 03/10/24 21:34 Course Vital Signs Vital signs: Vital Signs Temperature 98.3 F 03/10/24 21:34 Pulse Rate 86 03/10/24 21:34 Respiratory Rate 18 03/10/24 21:34 Blood Pressure 150/94 H 03/10/24 21:34 Pulse Oximetry 98 03/10/24 21:34 Oxygen Delivery Method Room Air 03/10/24 21:34 Temperature 98.3 F 03/10/24 21:34 Pulse Rate 86 03/10/24 21:34 Respiratory Rate 18 03/10/24 21:34 Blood Pressure 150/94 H 03/10/24 21:34 Pulse Oximetry 98 03/10/24 21:34 Oxygen Delivery Method Room Air 03/10/24 21:34 Medical Decision Making MDM Narrative Medical decision making narrative: CT is negative for any acute findings and she is able to be released back to [facility]. Findings were discussed with the patient. Differential Diagnosis Differential Diagnosis: Lumbar contusion, muscle strain, lumbar fracture Imaging Data CT lumbar spine: Radiologist's impression: CT per radiologist shows postoperative and residual degenerative change of the lumbar vertebral column and no CT evidence of an acute fracture. Discharge Plan Discharge Chief Complaint: Back Pain/Injury Clinical Impression: Low back pain Patient Disposition: Home, Self-Care Time of Disposition Decision: 23:01 Condition: Good Mode of Transportation: EMS Prescriptions / Home Meds: No Action aspirin 325 mg tablet 325 mg PO DAILY brimonidine 0.2 % drops 1 drp OPHTHALMIC (EYE) BID carvedilol 12.5 mg tablet 12.5 mg PO Q12H cholecalciferol (vitamin D3) [Vitamin D3] 10 mcg (400 unit) tablet 400 unit PO DAILY divalproex 500 mg tablet,delayed release (DR/EC) 500 mg PO DAILY docusate sodium 100 mg capsule 100 mg PO BID PRN (Reason: constipation) duloxetine 60 mg capsule,delayed release(DR/EC) 60 mg PO DAILY ferrous sulfate 325 mg (65 mg iron) tablet 325 mg PO DAILY fluocinonide 0.05 % ointment 1 applic TOPICAL DAILY PRN (Reason: rash) sucralfate [Carafate] 100 mg/mL suspension 1 g PO TID insulin glargine [Lantus Solostar U-100 Insulin] 100 unit/mL (3 mL) insulin pen 15 unit subcut DAILY levothyroxine 100 mcg tablet 100 mcg PO DAILY loperamide 2 mg capsule 2 mg PO Q6H PRN (Reason: loose stool) guaifenesin [Mucinex] 600 mg tablet extended release 12hr 600 mg PO BID PRN (Reason: congestion) multivitamin Tablet 1 tab PO DAILY omeprazole 40 mg capsule,delayed release(DR/EC) 40 mg PO DAILY potassium chloride 20 mEq tablet,ER particles/crystals 20 meq PO DAILY guaifenesin 100 mg/5 mL liquid 200 mg PO Q6H PRN (Reason: congestion) tramadol 50 mg tablet 50 mg PO Q12H cholecalciferol (vitamin D3) 25 mcg (1,000 unit) tablet 25 mcg PO DAILY Print Language: Arabic Instructions: Acute Low Back Pain (ED) Referrals: MAHIN BERNAL [Primary Care Provider] - 1 week
--- OUTSIDE RECORDS SUMMARY | 2024-03-10 21:48 | XMS_ITS | CCD ---
Author Organization [facility] Care Team Providers Care Roving Teller Name Role Phone Neri Santa Unavailable Pili Gilliam Unavailable Reji Miramontes Unavailable Unavailable Unavailable Unavailable Luis Miguel Kaur Unavailable Neri Santa Unavailable Luis Miguel Kaur Unavailable Tisha Arriaga Unavailable Adilson Hernandez Unavailable [phone] Kartik Mejia Unavailable Pili Gilliam Admitting Unavailable Pili Gilliam Attending Unavailable Pili Gilliam Admitting Unavailable Pili Gilliam Attending Unavailable Pili Gilliam Admitting Unavailable Pili Gilliam Attending Unavailable Pili Gilliam Admitting Unavailable Pili Gilliam Attending Unavailable Martha Yan Admitting Unavailable Martha Yan Attending Unavailable Ariel Franklin Attending Unavailable Ariel Franklin Admitting Unavailable Joanne Garvin Admitting Unavaila Joanne Carvajal Attending Unavaila Joanne Carvajal Admitting Unavaila ble Joanne Garvin Attending Unavaila Neri Shah Primary Care Provider Pili Gilliam Unavailable [phone] Reji Miramontes Unavailable Neri Santa Primary Care Provider [phone] GilliamPili antunez Unavailable Reji Miramontes Don Unavailable [...] Unavailable House DONeri P [facility] [phone] SOMMER, Reji PALACIOS Don Unavailable [phone] MARIELA JR., JEF Attending Unavailable HOUSE, NERI [...] Unavailable HOUSE, NERI P Primary Care Unavailable MARILEA JR., JEF Attending Unavailable HOUSE, NERI P Primary Care Unavailable MARIELA JR., JEF Attending Unavailable HOUSE, NERI P Primary Care Unavailable MARIELA JR., JEF Attending Unavailable HOUSE, NERI P Primary Care Unavailable HOUSE, NERI P Primary Care Unavailable BAUGH, TIA PALMIRA Attending Unavailabl e PHYSICIAN PHYSICIAN, PCP PCP UNKNOWN~[phone] Primary Care Unavailable ARNOLD, KIKE Consulting Unavailable ANABELL LANG Attending Unavailable ANABELL LANG Admitting Unavailable BANNING, KIKE Consulting Unavailable BANNING, KIKE Consulting Unavailable BAUERLE, CLARISA Consulting Unavailable BAUERLE, CLARISA Consulting Unavailable BAUERLE, CLARISA Consulting Unavailable VAISHALI ERAZO Referring Unavailable PHYSICIAN PHYSICIAN, PCP PCP UNKNOWN~[phone] Primary Care Unavailable House DO, Neri P Primary Care Provider David VIVEROS, Adilson Rizo Unavailable Kartik Mejia MD Unavailable Tisha Arriaga MD Unavailable Luis Miguel Kaur MD Unavailable [phone] Lucas OD, Chris A Unavailable Kartik Mejia MD Unavailable [phone] ARINA NERI P Primary Care Unavailable TORI HART Attending Unavailable JEF SIERRA JR. Admitting Unavailable HOUSE, NERI P Primary Care Unavailable TORI HART Referring Unavailable HOUSE, NERI P Primary Care Unavailable NBA FORREST Admitting Unavaila MAC Burkett Consulting Unavailable LEILA LINTON Attending Unavailable House DO, Sr Neri P Primary Care Provider House DO, Sr Neri P Primary Care Provider [phone] JERRY POZO Attending Unavailable HERCHER, JOHNY Referring [...] KRYSTYNA Referring Unavailable KATAKI, BENJI Attending Unavailable IQ, KRYSTYNA Referring Unavailable KATAKI, BENJI Attending Unavailable [...] Unavailable Ganga Savage MD Primary Care Provider Rufus Shen Attending Unavailable Rufus Shen Admitting [...] sources) Cephalexin Drug Allergy 04-07-19 18 Itching [facility] Opioid Agonists (3 sources) tapentadol Drug Allergy 04-07-19 18 Unknown [facility] Quinolones (antibiotic) (3 sources) moxifloxacin Drug Allergy 04-07-19 18 Itching, Swelling, Rash, Other (See Comments) [facility] (20 sources) cephalexin; Translations: [CEPHALEXIN] Propensity to adverse reactions to drug 12-02-19 12 Itching, Rash [facility] (20 sources) moxifloxacin; Translations: [MOXIFLOXACIN] Propensity to adverse reactions to drug 12-02-19 12 Itching, Swelling, Rash, Other (See Comments) [facility] (20 sources) tapentadol; Translations: [TAPENTADOL] Propensity to adverse reactions to drug 04-07-19 18 Unknown [facility] (15 sources) polyethylene glycol 3350 / potassium chloride / sodium bicarbonate / sodium chloride / sodium sulfate Drug Allergy 10-29-19 17 [facility] Work Phone: (20 sources) tapentadol Drug Allergy 10-31-19 16 Other (See Comments) [facility] Work Phone: (3 sources) Cephalexin; Translations: [Keflex] Drug Allergy 06-23-19 10 [facility] Repository (3 sources) moxifloxacin; Translations: [Avelox] Drug Allergy 06-23-19 10 [facility] Repository (3 sources) tapentadol; Translations: [Nucynta] Drug Allergy 06-30-19 13 [facility] Repository (1 source) Bacitracin / Neomycin / Polymyxin B Drug Allergy 06-23-19 10 [facility] Repository (1 source) Calcium oxide Drug Allergy 06-23-19 10 [facility] (1 source) POLYETHYLENE GLYCOL 3350 Drug Allergy 08-21-19 22 [facility] Rep[facility] (1 source) Sulfamethoxazole / Trimethoprim Drug Allergy 06-23-19 10 [facility] (1 source) fentaNYL; Translations: [fentaNYL] Drug Allergy [facility] Repository (1 source) POLYETHYLENE GLYCOL 3350 / Potassium Chloride / Sodium Bicarbonate / Sodium Chloride / sodium sulfate; Translations: [GoLYTELY] Drug Allergy [facility] Repository (1 source) Shellfish; Translations: [shellfish] Propensity to adverse reactions (disorder) [facility] Repository (1 source) Shrimp product; Translations: [Shrimp] Propensity to adverse reactions (disorder) [facility] Repository Medications Current Medications Medication Drug Class(es) [...] 5 mg, Oral, DAILY PRN, Starting on [facility] 06/28/21 at 2107, Until Discontinued, Constipation First [...] Start: 07-15-2021 take 2 tablets by mo hih once daily calcium carbonate-vitamin D3 (CALTRATE) 600-400 [...] UNIT/ML Solution Pen-injector injection 3 samples given--Lot [id number], exp 10/2021 3 Prefilled Pen/Syringe 0 06/23/2020 [...] needed 5-40 mL, IntraVENous, PRN, Starting on [facility] 06/28/21 at 2107, Until Discontinued, Line Care, [...] 20 mg/ml oral suspension (1 source) Uncompetitive D-yuoawc-I-aspartate Receptor Antagonist, Sigma-1 Agonist Start: 07-14-2021 End: [...] mg docusate sodium 50 mg / sennosides, chcf 8.6 mg oral tablet (1 source) Start: [...] override Jess Ventura: cabinet override Freestyle Juanpablo [place] Essie (5 sources) Start: 04-21-2017 End: 01-07-2018 Continuous Blood Gluc Manager Reporting (FREESTYLE JUANPABLO READER) Device Indications: Type 2 diabetes mellitus with diabetic polyneuropathy, without long-term current use of insulin Apply 1 Device topically As directed. Use to download subcutaneous glucose monitor data at least four times daily 1 Device 3 04/21/2017 01/07/2018 Discontinued Start: 04-21-2017 Continuous Blo od Gluc Manager Reporting (FREESTYLE JUANPABLO READER) Device Indications: Type 2 diabetes mellitus with diabetic polyneuropathy, without long-term current use of insulin Apply 1 Device topically As directed. Use to download subcutaneous glucose monitor data at least four times daily 1 Device 3 04/21/2017 Active Freestyle Juanpablo Sensor Syste m Misc (5 sources) Start: 04-21-2017 End: 01-07-2018 Continuous Blood Gluc Sensor (FREESTYLE JUANPABLO SENSOR SYSTEM) [facility] Indications: Type 2 diabetes mellitus with diabetic polyneuropathy, without long-term current use of insulin Inject 1 Each under the skin every [address] one sensor subcutaneous every 10 day 3 Each 6 04/21/2017 01/07/2018 Discontinued Start: 04-21-2017 Continuous Blo od Gluc Sensor (FREESTYLE JUANPABLO SENSOR SYSTEM) [facility] Indications: Type 2 diabetes mellitus with diabetic [...] TIMES DAILY WITH MEALS, First dose on [place] 07/22/21 at 0845, Until Discontinued Medium Dose [...] KwikPen) 100 UNIT/ML Solution Pen-injector Sample given [id number], 3 mL 0 09/13/2020 09/28/2020 Discontinued (Therapy [...] <60, or SBP <120 lactobacillus rhamnosus gg 5 [id number] unt oral capsule (6 sources) Start: 07-11-2021 [...] 08-04-2021 30 mL, Per NG tube, DAILY NH N, Starting on Fri08/04/21 at 0800, Until [...] Coronary atherosclerosis; Translations: [Atherosclerotic heart disease of [place] coronary artery without angina pectoris] Onset: 3 [...] aftercare (20 sources) Patient encounter status; Translations: [termination clerk (current) use of non-steroidal anti-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 (NSAID)] Onset: 8 01-22-2018 Episodic Other aftercare (1 source) Long-term current use of antibiotic; Translations: [USP (current) use of antibiotics] Episodic Other BODY SHOP ESTIMATOR infection and poliomyelitis (9 sources) Abscess in [...] Test Name Value Interpretation Reference Range Facility [facility] Medicine Office/Clini c Noteon 11-25-2023 [facility] Office/Clinic Note Normal [facility] Comment on above: Result Comment: Elec tronically Signed By: Jami Payne.br\Date and Time Signed: 11/25/23 12:17 EDT Pre-Visit Planningon 024 Pre-Visit Planning Normal [facility] Office/Clini c Noteon 10-24-2023 [facility] Office/Clinic Note Normal [facility] Comment on above: Result Comment: Elec tronically Signed By: Jami Payne.br\Date and Time Signed: 10/24/23 14:29 EDT Pre-Visit Planningon 024 Pre-Visit Planning Normal [facility] Pre-Visit Planningon 024 Pre-Visit Planning Normal [facility] Pre-Visit Planning Normal [facility] Pre-Visit Planning Normal [facility] Physician Orderon 05-27-2023 Physician Order [id number]#1 .00TIFF Normal [facility] Respiratory Panel by PCRon 0 05-27-2023 Adenovirus DNA CAL+non-probe Ql (Nph) Not detected Normal [facility] Comment on above: Order Comment: omega Ramires charanjit Macedie had talked to [place] earlier in the day and they want the swab placed into the media to run the specimen [id number] 05/27/2023 17:26:25 EDT Result Comment: Test ing was performed using nucleic acid amplification including Influenza A, Influenza A H1, Influenza A H3, Influenza B, RSV A, RSV B, Adenovirus, Human Metapneumovirus, Parainfluenza 1,2,3, and 4, Rhinovirus, Bordetella parapertussis/bronchiseptica, Bordetella holmesii, and Bordetella pertussis. Performed By: #### 1 [id number] ####[facility] [address] [place], [place] [id number] B. parapertussis DNA CAL+probe Ql (Upper resp) Not detected Normal Not Detected [facility] Comment on above: Order Comment: omega Ramires [place] Erica had talked to [place] earlier in the day and they want the swab placed into the media to run the specimen [id number] 05/27/2023 17:26:25 EDT Performed By: #### 1 [id number] ####[facility] [address] [place] [address] B. pertussis DNA CAL+probe Ql (Upper resp) Not detected Normal Not Detected [facility] Comment on above: Order Comment: omega Ramires [place] Erica had talked to [place] earlier in the day and they want the swab placed into the media to run the specimen [id number] 05/27/2023 17:26:25 EDT Performed By: #### 1 [id number] ####[facility] [address] [place] [address] FLUAV H1 RNA CAL+non-probe Ql (Nph) Not detected Normal [facility] Comment on above: Order Comment: per charanjit Donaldson had talked to [place] earlier in the day and they want the swab placed into the media to run the specimen [id number] 05/27/2023 17:26:25 EDT Performed By: #### 1 [id number] ####[place] [address] [facility] [place] [address] FLUAV H3 RNA CAL+non-probe Ql (Nph) Not detected Normal [facility] Comment on above: Order Comment: per charanjit Donaldson had talked to [place] earlier in the day and they want the swab placed into the media to run the specimen [id number] 05/27/2023 17:26:25 EDT Performed By: #### 1 [id number] ####[facility] [address] [place] [address], [place] [address] FLUAV RNA CAL+non-probe Ql (Nph) Not detected Normal [facility] Comment on above: Order Comment: per charanjit Donaldson had talked to [place] earlier in the day and they want the swab placed into the media to run the specimen [id number] 05/27/2023 17:26:25 EDT Performed By: #### 1 [id number] ####[facility] [address] [place] [address] FLUBV RNA CAL+non-probe Ql (Nph) Not detected Normal [facility] Comment on above: Order Comment: per charanjit Donaldson had talked to [place] earlier in the day and they want the swab placed into the media to run the specimen [id number] 05/27/2023 17:26:25 EDT Performed By: #### 1 [id number] ####[facility] [address] [place] [address] Human Metapneumovirus Not detected Normal [facility] Comment on above: Order Comment: per charanjit Donaldson had talked to [place] earlier in the day and they want the swab placed into the media to run the specimen [id number] 05/27/2023 17:26:25 EDT Result Comment: This test result should be correlated with clinical presentations and medical history by a healthcare provider to determine its clinical significance. Performed By: #### 1 [id number] ####[facility] [address] [place] [address] Parainfluenza virus 1 RNA CAL+non-probe Ql (Nph) Not detected Normal [facility] Comment on above: Order Comment: charanjit Zaidi had talked to [place] earlier in the day and they want the swab placed into the media to run the specimen [facility] 05/27/2023 17:26:25 EDT Performed By: #### 1 [id number] ####[address] [address] Parainfluenza virus 2 RNA CAL+non-probe Ql (Nph) Not detected Normal [facility] Comment on above: Order Comment: charanjit Zaidi had talked to [place] earlier in the day and they want the swab placed into the media to run the specimen [facility] 05/27/2023 17:26:25 EDT Performed By: #### 1 [id number] ####[facility] [address] [place] [address] Parainfluenza virus 3 RNA CAL+non-probe Ql (Nph) Not detected Normal [facility] Comment on above: Order Comment: per charanjit Donaldson had talked to [place] earlier in the day and they want the swab placed into the media to run the specimen [id number] 05/27/2023 17:26:25 EDT Performed By: #### 1 [id number] ####[facility] [address] [place] [address] Parainfluenza virus 4 RNA CAL+non-probe Ql (Nph) Not detected Normal [facility] Comment on above: Order Comment: charanjit Zaidi had talked to [place] earlier in the day and they want the swab placed into the media to run the specimen [id number] 05/27/2023 17:26:25 EDT Performed By: #### 1 [id number] ####[facility] [address] [place] [address] Resp Panel Intrl QC Pass Normal [facility] Comment on above: Order Comment: charanjit Zaidi had talked to [place] earlier in the day and they want the swab placed into the media to run the specimen [id number] 05/27/2023 17:26:25 EDT Performed By: #### 1 [id number] ####[facility] [address] [place] [address] Rhinovirus+Enterovirus RNA CAL+non-probe Ql (Nph) Not detected Normal [facility] Comment on above: Order Comment: charanjit Zaidi had talked to [place] earlier in the day and they want the swab placed into the media to run the specimen [id number] 05/27/2023 17:26:25 EDT Performed By: #### 1 [id number] ####[facility] [address] [place] [address] RSV RNA CAL+non-probe Ql (Nph) Detected Abnormal [facility] Comment on above: Order Comment: charanjit Zaidi had talked to [place] earlier in the day and they want the swab placed into the media to run the specimen [id number] 05/27/2023 17:26:25 EDT Performed By: #### 1 [id number] ####[facility] [address] [place] [address] Coding Queryon 04-17-2023 Coding Query Normal [facility] Coding Query Normal [facility] C Blood Charcoalon Blood Culture Charcoal Normal [facility] Comment on above: Performed By: #### 1 [id number] ####[facility] [address] [place] [address] Blood Culture Charcoal Normal [facility] Comment on above: Performed By: #### 1 [id number] ####[facility] [address] [place] [address] Discharge Instructionson Discharge Instructions [id number]#1 .00TIFF Normal [facility] Medication Listson Medication Lists [id number]#1 .00TIFF Normal [facility] Medication Lists [id number]#1 .00TIFF Normal [facility] Prescriptions/Work Noteson 0 04-08-2023 Prescriptions/Work Notes [id number]#1 .00TIFF Normal [facility] Transfer Documentson 024 Transfer Documents [id number]#1 .00TIFF Normal [facility] Capillary Glucose POCon 03-20 Glucose [Mass/Vol] 91 mg/dL Normal 55-99 [facility] Comment on above: Result Comment: Sandhya luo RN/ Performed By: #### 2 [id number] ####[facility] [address] [place] [address] Glucose [Mass/Vol] 94 mg/dL Normal 55-99 [facility] Comment on above: Result Comment: Sandhya luo RN/ Performed By: #### 2 [id number] ####[facility] [address] [place] [address] Discharge Note-Nursingon Discharge Note-Nursing Normal [facility] Inpatient Clinical Summaryon 04-07-2023 Inpatient Clinical Summary Normal [facility] Inpatient Patient Summaryon 04-07-2023 Inpatient Patient Summary Normal [facility] Interdisciplinary Note - Miguelito e Manageron 04-07-2023 Interdisciplinary Note - Production Cell Leader Normal [facility] Comment on above: Result Comment: Elec tronically Signed By: Judith GARVIN, Mai\blair\Date and Time Signed: 04/07/23 09:13 EST Monitor Recordon 04-07-2023 Monitor Record [id number]# 1.00TIFF Normal [facility] BMPon 04-06-2023 Anion gap [Moles/Vol] 11 mmol/L Normal 6-16 [facility] Comment on above: Performed By: #### 2 [id number], [id number], [id number] ####[facility] [address] [place] [address] BUN/Creat Ratio 12 No Units Normal 10-20 [facility] Comment on above: Performed By: #### 2 795169, [id number], 6924732 ####[facility] [address] [place] [address] Calcium [Mass/Vol] 8.8 mg/dL Low 8.9-11.1 [facility] Comment on above: Performed By: #### 2 757886, [id number], 3814017 ####[facility] [address] [place] [address] Chloride [Moles/Vol] 112 mmol/L High 101-111 [facility] Comment on above: Performed By: #### 2 997448, 99077674, 9177890 ####[facility] [address] [place] [address] CO2 [Moles/Vol] 22 mmol/L Normal 21-31 [facility] Comment on above: Performed By: #### 2 419047, 90968510, 3791718 ####[facility] [address] [place] [address] Creatinine [Mass/Vol] 1.3 mg/dL Normal 0.5-1.3 [facility] Comment on above: Performed By: #### 2 031398, 51097581, 7017363 ####[facility] [address] [place] [address] Glucose [Mass/Vol] 80 mg/dL Normal 55-199 [facility] Comment on above: Performed By: #### 2 799320, 20501161, 1181387 ####[facility] [address] [place] [address] Potassium [Moles/Vol] 4.6 mmol/L Normal 3.5-5.3 [facility] Comment on above: Performed By: #### 2 520817, 81764180, 9044712 ####[address] [address] Sodium [Moles/Vol] 140 mmol/L Normal 135-145 [facility] Comment on above: Performed By: #### 2 795092, 08554363, 8778248 ####[address] [address] Urea nitrogen [Mass/Vol] 15 mg/dL Normal 5-21 [facility] Comment on above: Performed By: #### 2 186120, 97940587, 2840573 ####[address] [address] CBC w/ Auto Diffon 4 Basophil Absolute 0.0 E9/L Normal 0.0-0.2 [facility] Comment on above: Performed By: #### 2 014082, [id number], 1485303 ####[address] [address] Basophils/100 WBC (Bld) 0.3 % Normal 0.0-2.0 [facility] Comment on above: Performed By: #### 2 516553, [id number], 8291696 ####[address] [address] Eos Absolute 1.2 E9/L High 0.0-0.5 [facility] Comment on above: Performed By: #### 2 983622, 27879603, 7921080 ####[address] [address] Eosinophils/100 WBC (Bld) 11.5 % High 0.0-8.0 [facility] Comment on above: Performed By: #### 2 135087, 00417774, 7969131 ####[address] [address] Erythrocyte distribution width (RBC) [Ratio] 13.7 % Normal 10.9-14.2 [facility] Comment on above: Performed By: #### 2 815300, 84113887, 9806875 ####[address] [address] Hematocrit (Bld) [Volume fraction] 30.0 % Low 34.0-46.0 [facility] Comment on above: Performed By: #### 2 268927, 26415808, 7931552 ####[address] [address] Hemoglobin (Bld) [Mass/Vol] 9.9 g/dL Low 12.0-16.0 [facility] Comment on above: Performed By: #### 2 584358, 04060164, 8138971 ####[place] [address] Lymph Absolute 2.5 E9/L Normal 1.0-4.0 [facility] Comment on above: Performed By: #### 2 686344, 18516762, 7796493 ####[address] [address] Lymphocytes/100 WBC (Bld) 23.7 % Normal 14.0-50.0 [facility] Comment on above: Performed By: #### 2 409256, 96661401, 1298006 ####[address] [address] MCH (RBC) [Entitic mass] 29.9 pg Normal 27.0-34.0 [facility] Comment on above: Performed By: #### 2 904729, 85956674, 5451263 ####[address] [address] MCHC (RBC) [Mass/Vol] 32.9 g/dL Normal 31.4-36.0 [facility] Comment on above: Performed By: #### 2 612068, 62597708, 1579392 ####[facility] [address] [place] [address] MCV (RBC) [Entitic vol] 91.1 fL Normal 80.0-100.0 [facility] Comment on above: Performed By: #### 2 589204, 37315121, 3091684 ####[facility] [address] [place], [place] [address] [place] Absolute 1.2 E9/L High 0.2-1.0 [facility] Comment on above: Performed By: #### 2 728722, 65451545, 5834252 ####[place] [address] Monocytes/100 WBC (Bld) 11.2 % Normal 4.0-14.0 [facility] Comment on above: Performed By: #### 2 887484, 08762338, 5941322 ####[facility] [address] [place], [place] [address] Neutro Absolute 5.7 E9/L Normal 2.0-7.5 [facility] Comment on above: Performed By: #### 2 342046, 49988872, 2527852 ####[facility] [address] [place], [place] [address] Neutro Auto 53.3 % Normal 36.0-75.0 [facility] Comment on above: Performed By: #### 2 536884, 01944927, 3599727 ####[address] [address] Platelet 429.0 E9/L Normal 150.0-500.0 [facility] Comment on above: Performed By: #### 2 734531, 01879556, 3715889 ####[address] [address] Platelet mean volume (Bld) [Entitic vol] 6.9 fL Normal 6.4-10.8 [facility] Comment on above: Performed By: #### 2 956357, 53793422, 6522230 ####[facility] [address] [place] [address] RBC 3.3 E12/L Low 4.3-5.9 [facility] Comment on above: Performed By: #### 2 491966, 26416652, 9238414 ####[facility] [address] [place] [address] WBC 10.6 E9/L Normal 4.0-11.0 [facility] Comment on above: Performed By: #### 2 175085, 43062039, 5702166 ####[facility] [address] [place] [address] Capillary Glucose POCon 03-20 Glucose [Mass/Vol] 113 mg/dL High 55-99 [facility] Comment on above: Result Comment: Sandhya JOHNSTON Performed By: #### 2 [id number] ####[facility] [address] [place] [address] Glucose [Mass/Vol] 130 mg/dL High 55-99 [facility] [place] Comment on above: Result Comment: Sandhya JOHNSTON Performed By: #### 2 [id number] ####[facility] [address] [place] [address] Glucose [Mass/Vol] 155 mg/dL High 55-99 [facility] Comment on above: Result Comment: Sandhya JOHNSTON Performed By: #### 2 [id number] ####[facility] [address] [place] [address] Glucose [Mass/Vol] 136 mg/dL High 55-99 [facility] [place] Comment on above: Result Comment: Sandhya JOHNSTON Performed By: #### 2 [id number] ####[facility] [address] [place] [address] Glucose [Mass/Vol] 75 mg/dL Normal 55-99 [facility] [place] Comment on above: Result Comment: Sandhya luo RN/ Performed By: #### 2 [id number] ####[facility] [address] [place] [address] Interdisciplinary Note - Miguelito e Manageron 04-06-2023 Interdisciplinary Note - Production Cell Leader [facility] Comment on above: Result Comment: Elec tronically Signed By: Chong GARVIN, Preeti\.br\Date and Time Signed: 04/06/23 11:44 EST Monitor Recordon 04-06-2023 Monitor Record [id number] 2 [id number]# 1.00TIFF Normal [facility] Monitor Record [id number] 2 [id number]# 1.00TIFF Normal [facility] Monitor Record [id number] 2 [id number]# 1.00TIFF Normal [facility] Monitor Record [id number] 2 [id number]# 1.00TIFF Normal [facility] Monitor Record [id number] 2 [id number]# 1.00TIFF Normal [facility] Progress Note-Physicianon Progress Note-Physician Normal [facility] [place] Comment on above: Result Comment: Elec tronically Signed By: Wil Putnam DO.br\Date and Time Signed: 04/06/23 13:25 EST eGFRon 04-06-2023 eGFR 47 mL/min/1.73 m2 Low >=59 [facility] [place] Comment on above: Order Comment: Order added by Discern Expert. Performed By: #### 2 131478, 34397925, 6981610 ####[facility] [address] [place] [address] BMPon 04-05-2023 Anion gap [Moles/Vol] 11 mmol/L Normal 6-16 [facility] Comment on above: Performed By: #### 2 286310, 71411229, 3473550 ####[facility] [address] [place] [address] BUN/Creat Ratio 10 No Units Normal 10-20 [facility] Comment on above: Performed By: #### 2 942297, 71950099, 0436034 ####[facility] [address] [place] [address] Calcium [Mass/Vol] 8.2 mg/dL Low 8.9-11.1 [facility] Comment on above: Performed By: #### 2 359537, 60374907, 7352429 ####[facility] [address] [place] [address] Chloride [Moles/Vol] 111 mmol/L Normal 101-111 [facility] Comment on above: Performed By: #### 2 875726, 08452276, 7472756 ####[facility] [address] [place] [address] CO2 [Moles/Vol] 22 mmol/L Normal 21-31 [facility] Comment on above: Performed By: #### 2 951826, 94691514, 5368062 ####[facility] [address] [place] [address] Creatinine [Mass/Vol] 1.2 mg/dL Normal 0.5-1.3 [facility] Comment on above: Performed By: #### 2 085368, 64332245, 1638603 ####[facility] [address] [place] [address] Glucose [Mass/Vol] 75 mg/dL Normal 55-199 [facility] Comment on above: Performed By: #### 2 392267, 93497140, 0179017 ####[facility] [address] [place] [address] Potassium [Moles/Vol] 4.2 mmol/L Normal 3.5-5.3 [facility] Comment on above: Performed By: #### 2 920454, 29233416, 1173901 ####[facility] [address] [place] [address] Sodium [Moles/Vol] 140 mmol/L Normal 135-145 [facility] Comment on above: Performed By: #### 2 032634, 94650321, 5409456 ####[facility] [address] [place] [address] Urea nitrogen [Mass/Vol] 12 mg/dL Normal 5-21 [facility] Comment on above: Performed By: #### 2 924871, 66264959, 4653410 ####[facility] [address] [place] [address] C Sputumon 04-05-2023 Bacteria identified Respiratory culture Nom (Sput) Normal [facility] Comment on above: Performed By: #### 2 378726 ####[facility] [address] [place] [address] CBC w/ Auto Diffon Basophil Absolute 0.0 E9/L Normal 0.0-0.2 [facility] Comment on above: Performed By: #### 2 500440, 49162369, 6601824 ####[facility] [address] [place] [address] Basophils/100 WBC (Bld) 0.3 % Normal 0.0-2.0 [facility] Comment on above: Performed By: #### 2 620491, 15549881, 1246094 ####[facility] [address] [place] [address] Eos Absolute 1.2 E9/L High 0.0-0.5 [facility] Comment on above: Performed By: #### 2 331144, 45848122, 3857651 ####[facility] [address] [place] [address] Eosinophils/100 WBC (Bld) 11.0 % High 0.0-8.0 [facility] Comment on above: Performed By: #### 2 382057, 86748789, 4756290 ####[facility] [address] [place] [address] Erythrocyte distribution width (RBC) [Ratio] 13.9 % Normal 10.9-14.2 [facility] Comment on above: Performed By: #### 2 981716, 16369272, 8246977 ####[address] [address] Hematocrit (Bld) [Volume fraction] 29.0 % Low 34.0-46.0 [facility] Comment on above: Performed By: #### 2 642093, 83185243, 6020304 ####[address] [address] Hemoglobin (Bld) [Mass/Vol] 9.5 g/dL Low 12.0-16.0 [facility] Comment on above: Performed By: #### 2 329478, 51146846, 9974129 ####[address] [address] Lymph Absolute 2.4 E9/L Normal 1.0-4.0 [facility] Comment on above: Performed By: #### 2 693475, 56245744, 7624621 ####[address] [address] Lymphocytes/100 WBC (Bld) 22.0 % Normal 14.0-50.0 [facility] Comment on above: Performed By: #### 2 827844, 89307132, 3698210 ####[address] [address] MCH (RBC) [Entitic mass] 29.8 pg Normal 27.0-34.0 [facility] Comment on above: Performed By: #### 2 649502, 90889219, 3979475 ####[address] [address] MCHC (RBC) [Mass/Vol] 32.6 g/dL Normal 31.4-36.0 [facility] Comment on above: Performed By: #### 2 621814, 73723782, 0906474 ####[address] [address] MCV (RBC) [Entitic vol] 91.3 fL Normal 80.0-100.0 [facility] [place] Comment on above: Performed By: #### 2 015717, 76100696, 4642214 ####[facility] [address] [place] [address] [place] Absolute 1.2 E9/L High 0.2-1.0 [facility] Comment on above: Performed By: #### 2 906682, 43023187, 1347066 ####[address] [address] Monocytes/100 WBC (Bld) 11.6 % Normal 4.0-14.0 [facility] [place] Comment on above: Performed By: #### 2 125995, 66695496, 7697319 ####[address] [address] Neutro Absolute 5.9 E9/L Normal 2.0-7.5 [facility] Comment on above: Performed By: #### 2 411402, 16187886, 9118128 ####[address] [address] Neutro Auto 55.1 % Normal 36.0-75.0 [facility] Comment on above: Performed By: #### 2 926726, 53443003, 5869557 ####[address] [address] Platelet 415.0 E9/L Normal 150.0-500.0 [facility] Comment on above: Performed By: #### 2 408786, 19854951, 6665010 ####[address] [address] Platelet mean volume (Bld) [Entitic vol] 6.7 fL Normal 6.4-10.8 [facility] Comment on above: Performed By: #### 2 474491, 86519756, 9648717 ####[address] [address] RBC 3.2 E12/L Low 4.3-5.9 [facility] Comment on above: Performed By: #### 2 082375, 54494843, 0281776 ####[facility] [address] [place] [address] WBC 10.7 E9/L Normal 4.0-11.0 [facility] Comment on above: Performed By: #### 2 080577, 08124989, 0731232 ####[facility] [address] [place] [address] Capillary Glucose POCon 03-20 Glucose [Mass/Vol] 89 mg/dL Normal 55-99 [facility] Comment on above: Result Comment: Sandhya JOHNSTON Performed By: #### 2 39329047 ####[facility] [address] [place] [address] Glucose [Mass/Vol] 109 mg/dL High 55-99 [facility] Comment on above: Result Comment: Sandhya JOHNSTON Performed By: #### 2 46407074 ####[facility] [address] [place] [address] Glucose [Mass/Vol] 131 mg/dL High 55-99 [facility] Comment on above: Result Comment: Sandhya JOHNSTON Performed By: #### 2 01011310 ####[facility] [address] [place] [address] Glucose [Mass/Vol] 340 mg/dL High 55-99 [facility] Comment on above: Result Comment: Sandhya JOHNSTON Performed By: #### 2 79095291 ####[facility] [address] [place] [address] Glucose [Mass/Vol] 108 mg/dL High 55-99 [facility] Comment on above: Result Comment: Sandhya JOHNSTON Performed By: #### 2 38778934 ####[facility] [address] [place] [address] ED Note-Physicianon 04-05-19 ED Note-Physician Normal [facility] Comment on above: Result Comment: Elec tronically Signed By: Jeff Clancy PA-C\.br\Date and Time Signed: 04/01/23 14:53 EST\.br\Electronically Co-Signed By: Garfield Rodriguez DO\.br\Date and Time Co-Signed: 04/05/23 07:36 EST Enteric Panel by PCRon 04-05 C. coli+jejuni+upsaliensis DNA CAL+non-probe Ql (Stl) Not detected Normal [facility] Comment on above: Result Comment: Test ing was performed utilizing reverse gun club manager (RT), polymerase chain reaction (PCR), and array [...] nulcleic acid test. Performed By: #### 1 [id number] ####[facility] [address] [place] [address] E. coli stx1+stx2 genes CAL+non-probe Ql (Stl) Negative Normal [facility] Comment on above: Performed By: #### 1 [id number] ####[facility] [address] [place] [address] Enteric Panel Intrl QC Pass Normal [facility] Comment on above: Result Comment: Test ing was performed utilizing reverse gun club manager (RT), polymerase chain reaction (PCR), and array [...] 1 and 2. Performed By: #### 1 [id number] ####[place] [address] Norovirus genogroup I+II RNA CAL+non-probe Ql (Stl) Not detected Normal [facility] Comment on above: Performed By: #### 1 [id number] ####[place] [address] Rotavirus A RNA CAL+non-probe Ql (Stl) Not detected Normal [facility] Comment on above: Performed By: #### 1 914283245 ####[place] [address] S. enterica+bongori DNA CAL+non-probe Ql (Stl) Not detected Normal [facility] Comment on above: Result Comment: This test result should be correlated with clinical presentations and medical history by a healthcare provider to determine its clinical significance. Performed By: #### 1 [id number] ####[place] [address] [place] [address]49657 Shigella species+EIEC invasion plasmid antigen H ipaH gene CAL+non-probe Ql (Stl) Not detected Normal [facility] Comment on above: Performed By: #### 1 [id number] ####[place] 8468857 V. cholerae+parahaemolytic us+vulnificus DNA CAL+non-probe Ql (Stl) Not detected Normal [facility] Comment on above: Performed By: #### 1 849901067 ####[facility] [address] [place] [address] Y. enterocolitica DNA CAL+non-probe Ql (Stl) Not detected Normal [facility] Comment on above: Performed By: #### 1 656648601 ####[facility] [address] [place] [address] Interdisciplinary Note - Sharee n 04-05-2023 Interdisciplinary Note - OT Normal [facility] Interdisciplinary Note - PTo n 04-05-2023 Interdisciplinary Note - PT Normal [facility] Monitor Recordon 04-05-2023 Monitor Record [id number] 2 [id number]# 1.00TIFF Normal [facility] Monitor Record [id number] 2 [id number]# 1.00TIFF Normal [facility] Progress Note-Physicianon Progress Note-Physician Normal [facility] Comment on above: Result Comment: Elec tronically Signed By: Wil Putnam DO\.br\Date and Time Signed: 04/05/23 13:18 EST Progress Note-Physician Normal [facility] Comment on above: Result Comment: Elec tronically Signed By: Yaritza Evans Jr., PA-C\.br\Date and Time Signed: 04/05/23 12:41 EST eGFRon 04-05-2023 eGFR 52 mL/min/1.73 m2 Low >=59 [facility] Comment on above: Order Comment: Order added by Discern Expert. Performed By: #### 2 950821, 23481352, 3320958 ####[facility] [address] [place] [address] BMPon 04-04-2023 Anion gap [Moles/Vol] 12 mmol/L Normal 6-16 [facility] Comment on above: Performed By: #### 2 299979, 47398426, 6762697 ####[facility] [address] [facility] [place] [address] BUN/Creat Ratio 9 No Units Low 10-20 [facility] Comment on above: Performed By: #### 2 552797, 58369152, 4232412 ####[facility] [address] [place] [address] Calcium [Mass/Vol] 8.4 mg/dL Low 8.9-11.1 [facility] Comment on above: Performed By: #### 2 493347, 98513033, 6703952 ####[facility] [address] [place] [address] Chloride [Moles/Vol] 112 mmol/L High 101-111 [facility] Comment on above: Performed By: #### 2 954525, 33604374, 6884942 ####[facility] [address] [place] [address] CO2 [Moles/Vol] 19 mmol/L Low 21-31 [facility] Comment on above: Performed By: #### 2 620286, 15106713, 6883092 ####[facility] [address] [place] [address] Creatinine [Mass/Vol] 1.2 mg/dL Normal 0.5-1.3 [facility] Comment on above: Performed By: #### 2 581184, 13107656, 5324536 ####[facility] [address] [place] [address] Glucose [Mass/Vol] 145 mg/dL Normal 55-199 [facility] Comment on above: Performed By: #### 2 928931, 13684723, 5380573 ####[facility] [address] [place] [address] Potassium [Moles/Vol] 3.9 mmol/L Normal 3.5-5.3 [facility] Comment on above: Performed By: #### 2 368407, 74291588, 8984878 ####[facility] [address] [place] [address] Sodium [Moles/Vol] 139 mmol/L Normal 135-145 [facility] Comment on above: Performed By: #### 2 045318, 75985342, 6165919 ####[facility] [address] [place] [address] Urea nitrogen [Mass/Vol] 11 mg/dL Normal 5-21 [facility] Comment on above: Performed By: #### 2 993456, 02485845, 9154702 ####[address] [address] CBC w/ Auto Diffon 4 Basophil Absolute 0.0 E9/L Normal 0.0-0.2 [facility] Comment on above: Performed By: #### 2 208090, 73629227, 6516703 ####[address] [address] Basophils/100 WBC (Bld) 0.3 % Normal 0.0-2.0 [facility] Comment on above: Performed By: #### 2 748336, 23891199, 9642773 ####[address] [address] Eos Absolute 0.8 E9/L High 0.0-0.5 [facility] Comment on above: Performed By: #### 2 013287, 54052765, 2295473 ####[address] [address] Eosinophils/100 WBC (Bld) 7.7 % Normal 0.0-8.0 [facility] Comment on above: Performed By: #### 2 892879, 16072871, 5733245 ####[address] [address] Erythrocyte distribution width (RBC) [Ratio] 14.1 % Normal 10.9-14.2 [facility] Comment on above: Performed By: #### 2 214288, 08705528, 2420344 ####[address] [address] Hematocrit (Bld) [Volume fraction] 30.0 % Low 34.0-46.0 [facility] Comment on above: Performed By: #### 2 559283, 06006370, 6089175 ####[address] [address] Hemoglobin (Bld) [Mass/Vol] 10.1 g/dL Low 12.0-16.0 [facility] Comment on above: Performed By: #### 2 069519, 00816669, 3428367 ####[address] [address] Lymph Absolute 1.8 E9/L Normal 1.0-4.0 [facility] Comment on above: Performed By: #### 2 099455, 88652171, 9119998 ####[address] [address] Lymphocytes/100 WBC (Bld) 16.3 % Normal 14.0-50.0 [facility] Comment on above: Performed By: #### 2 573091, 71311932, 0948372 ####[address] [address] MCH (RBC) [Entitic mass] 30.9 pg Normal 27.0-34.0 [facility] Comment on above: Performed By: #### 2 018306, 43514290, 4967223 ####[address] [address] MCHC (RBC) [Mass/Vol] 33.9 g/dL Normal 31.4-36.0 [facility] Comment on above: Performed By: #### 2 450015, 05556137, 8982531 ####[address] [address] MCV (RBC) [Entitic vol] 91.1 fL Normal 80.0-100.0 [facility] Comment on above: Performed By: #### 2 001887, 16726482, 4805296 ####[address] [place] [address] [place] Absolute 1.3 E9/L High 0.2-1.0 [facility] Comment on above: Performed By: #### 2 943316, 29038146, 5117370 ####[address] [address] Monocytes/100 WBC (Bld) 12.3 % Normal 4.0-14.0 [facility] Comment on above: Performed By: #### 2 591079, 80874626, 9031441 ####[address] [address] Neutro Absolute 6.8 E9/L Normal 2.0-7.5 [facility] Comment on above: Performed By: #### 2 766807, 73999089, 0009435 ####[address] [address] Neutro Auto 63.4 % Normal 36.0-75.0 [facility] Comment on above: Performed By: #### 2 528161, 89511898, 0570207 ####[address] [address] Platelet 387.0 E9/L Normal 150.0-500.0 [facility] Comment on above: Performed By: #### 2 818166, 67841195, 6885738 ####[address] [address] Platelet mean volume (Bld) [Entitic vol] 6.9 fL Normal 6.4-10.8 [facility] Comment on above: Performed By: #### 2 985368, 00849124, 1390890 ####[address] [address] RBC 3.3 E12/L Low 4.3-5.9 [facility] Comment on above: Performed By: #### 2 670682, 28165206, 8741423 ####[address] [address] WBC 10.7 E9/L Normal 4.0-11.0 [facility] Comment on above: Performed By: #### 2 263536, 50815152, 0790481 ####[facility] [address] [place] [address] Capillary Glucose POCon 03-20 Glucose [Mass/Vol] 111 mg/dL High 55-99 [facility] Comment on above: Result Comment: Sandhya luo RN/ Performed By: #### 2 38224040 ####[facility] [address] [place] [address] Glucose [Mass/Vol] 98 mg/dL Normal 55- [facility] Comment on above: Result Comment: Sandhya luo RN/ Performed By: #### 2 96109290 ####[facility] [address] [place] [address] Glucose [Mass/Vol] 135 mg/dL High - [facility] Comment on above: Result Comment: Sandhya luo RN/ Performed By: #### 2 36273806 ####[facility] [address] [place] [address] Glucose [Mass/Vol] 138 mg/dL High - [facility] Comment on above: Result Comment: Sandhya luo RN/ Performed By: #### 2 56416024 ####[facility] [address] [place] [address] Echo Transthoracic Completeo n 04-04-2023 Echo Transthoracic Complete Normal [facility] Interdisciplinary Note - Miguelito e Manageron 04-04-2023 Interdisciplinary Note - Production Cell Leader Normal [facility] Comment on above: Result Comment: Elec tronically Signed By: Chanda Adames\.br\Date and Time Signed: 04/04/23 10:38 EST MRSA Screenon 04-04-2023 MRSA DNA CAL+probe Ql (Unsp spec) Normal [facility] Comment on above: Performed By: #### 1 7605419 ####[facility] [address] [place] [address] Monitor Recordon 04-04-2023 Monitor Record [id number]# 1.00TIFF Normal [facility] Progress Note-Physicianon Progress Note-Physician Normal [facility] Comment on above: Result Comment: Elec tronically Signed By: John VIVEROS, Alberto Rahman\.br\Date and Time Signed: 04/04/23 15:59 EST Progress Note-Physician Normal [facility] Comment on above: Result Comment: Elec tronically Signed By: Val NICHOLS CNP L\.br\Date and Time Signed: 04/04/23 11:32 EST\.br\Electronically Co-Signed By: JALEEL VIVEROS, Michelle\.br\Date and Time Co-Signed: 04/04/23 11:39 EST eGFRon 04-04-2023 eGFR 52 mL/min/1.73 m2 Low >=59 [facility] Comment on above: Order Comment: Order added by Discern Expert. Performed By: #### 2 485087, 26709445, 5184637 ####[facility] [address] [place] [address] BMPon 04-03-2023 Anion gap [Moles/Vol] 12 mmol/L Normal 6-16 [facility] Comment on above: Performed By: #### 2 022180, 05960289, 304480480, 3049645 ####[facility] [address] [place] [address] BUN/Creat Ratio 12 No Units Normal 10-20 [facility] Comment on above: Performed By: #### 2 482129, 72397904, 455879796, 1483840 ####[facility] [address] [place] [address] Calcium [Mass/Vol] 8.2 mg/dL Low 8.9-11.1 [facility] Comment on above: Performed By: #### 2 029904, 00691564, 819374354, 8767331 ####[facility] [address] [place] [address] Chloride [Moles/Vol] 110 mmol/L Normal 101-111 [facility] Comment on above: Performed By: #### 2 210011, 75426501, 161385669, 4957560 ####[facility] [address] [place] [address] CO2 [Moles/Vol] 20 mmol/L Low 21-31 [facility] Comment on above: Performed By: #### 2 093311, 33225377, 305927782, 7625494 ####[facility] [address] [place] [address] Creatinine [Mass/Vol] 1.2 mg/dL Normal 0.5-1.3 [facility] Comment on above: Performed By: #### 2 636128, 60524179, 484132846, 9226936 ####[facility] [address] [place] [address] Glucose [Mass/Vol] 133 mg/dL Normal 55-199 [facility] Comment on above: Performed By: #### 2 419007, 63756453, 942889595, 2421895 ####[facility] [address] [place] [address] Potassium [Moles/Vol] 4.0 mmol/L Normal 3.5-5.3 [facility] Comment on above: Performed By: #### 2 726657, 79594596, 535365483, 8194065 ####[facility] [address] [place] [address] Sodium [Moles/Vol] 138 mmol/L Normal 135-145 [facility] Comment on above: Performed By: #### 2 150649, 88911825, 999761153, 4297522 ####[facility] [address] [place] [address] Urea nitrogen [Mass/Vol] 14 mg/dL Normal 5-21 [facility] Comment on above: Performed By: #### 2 125447, 74361172, 641127990, 3747823 ####[facility] [address] [place] [address] Capillary Glucose POCon 03-20 Glucose [Mass/Vol] 123 mg/dL High 55-99 [facility] Comment on above: Result Comment: Sandhya luo RN/ Performed By: #### 2 35739179 ####[facility] [address] [place] [address] Glucose [Mass/Vol] 147 mg/dL High 55-99 [facility] Comment on above: Result Comment: Sandhya luo RN/ Performed By: #### 2 62932827 ####[facility] [address] [place] [address] Glucose [Mass/Vol] 133 mg/dL High 55-99 [facility] Comment on above: Result Comment: Sandhya luo RN/ Performed By: #### 2 10994663 ####[facility] [address] [place] [address] Glucose [Mass/Vol] 108 mg/dL High 55-99 [facility] Comment on above: Result Comment: Sandhya luo RN/ Performed By: #### 2 96877137 ####[facility] [address] [place] [address] Consultation Noteon 04-03-19 Consultation Note Normal [facility] Comment on above: Result Comment: Elec tronically Signed By: Yaritza Evans Jr., PA-C\.br\Date and Time Signed: 04/03/23 14:40 EST Interdisciplinary Note - Miguelito e Manageron 04-03-2023 Interdisciplinary Note - Production Cell Leader [facility] Comment on above: Result Comment: Elec tronically Signed By: Chanda Adames\.br\Date and Time Signed: 04/03/23 10:25 EST Magnesiumon 04-03-2023 Magnesium [Mass/Vol] 2.0 mg/dL Normal 1.3-2.4 [facility] Comment on above: Performed By: #### 2 755954, 96161589, 148932325, 4019509 ####[facility] [address] [place] [address] Monitor Recordon 04-03-2023 Monitor Record [id number] 2 [id number]# 1.00TIFF Normal [facility] Monitor Record [id number] 2 [id number]# 1.00TIFF Normal [facility] Progress Note - Pharmacyon 0 04-03-2023 Progress Note - Pharmacy Normal [facility] Progress Note-Physicianon Progress Note-Physician Normal [facility] Comment on above: Result Comment: Elec tronically Signed By: Val NICHOLS CNP\.br\Date and Time Signed: 04/03/23 18:25 EST\.br\Electronically Co-Signed By: Michelle MARMOLEJO MD\.br\Date and Time Co-Signed: 04/03/23 18:45 EST Progress Note-Physician Normal [facility] Comment on above: Result Comment: Elec tronically Signed By: Marybel Sofia\.br\Date and Time Signed: 04/03/23 02:39 EST\.br\Electronically Co-Signed By: Michelle MARMOLEJO MD\.br\Date and Time Co-Signed: 04/03/23 07:36 EST Vitamin D 25 Hydroxyon 04-03 Vitamin D 25 Hydroxy 28.2 ng/mL Low 30.0-100.0 [facility] Comment on above: Performed By: #### 2 056773, 51381991, [id number], 4164941 ####[facility] [address] [place] [address] XR Chest Single Viewon 04-03 XR Chest Single View Normal [facility] eGFRon 04-03-2023 eGFR 52 mL/min/1.73 m2 Low >=59 [facility] Comment on above: Order Comment: Order added by Discern Expert. Performed By: #### 2 840355, 11682844, 050129611, 2336246 ####[facility] [address] [place] [address] BMPon 04-02-2023 Anion gap [Moles/Vol] 14 mmol/L Normal 6-16 [facility] Comment on above: Performed By: #### 1 6268334, 7761075, 9780147, 6396804, 4212699, 3813333, 85691269, 925034888 ####[facility] [address] [place] [address] BUN/Creat Ratio 13 No Units Normal 10-20 [facility] Comment on above: Performed By: #### 1 1850151, 8282622, 7562567, 8636591, 2083667, 4159391, 32418516, 719122964 ####[facility] [address] [place] [address] Calcium [Mass/Vol] 8.5 mg/dL Low 8.9-11.1 [facility] Comment on above: Performed By: #### 1 0410780, 6384749, 8614425, 3169014, 8793500, 5467225, 10253676, 822587822 ####[facility] [address] [place] [address] Chloride [Moles/Vol] 104 mmol/L Normal 101-111 [facility] Comment on above: Performed By: #### 1 4093808, 7357448, 0312361, 2279980, 8307405, 2720591, 17439435, 693297196 ####[facility] [address] [place] [address] CO2 [Moles/Vol] 21 mmol/L Normal 21-31 [facility] Comment on above: Performed By: #### 1 3433616, 5706079, 6135773, 2694366, 2422910, 7038681, 30449388, 154705836 ####[facility] [address] [place] [address] Creatinine [Mass/Vol] 1.3 mg/dL Normal 0.5-1.3 [facility] Comment on above: Performed By: #### 1 4328802, 1533257, 2666172, 1455239, 1421682, 7407977, 71381814, 348765094 ####[facility] [address] [place] [address] Glucose [Mass/Vol] 129 mg/dL Normal 55-199 [facility] Comment on above: Performed By: #### 1 1339080, 1592838, 2153831, 6574809, 1943580, 7053390, 45257916, 490442506 ####[facility] [address] [place] [address] Potassium [Moles/Vol] 4.4 mmol/L Normal 3.5-5.3 [facility] Comment on above: Performed By: #### 1 6527115, 1018125, 7566879, 0799177, 4745484, 3392531, 06523660, 915009199 ####[address] [address] Sodium [Moles/Vol] 135 mmol/L Normal 135-145 [facility] Comment on above: Performed By: #### 1 4429718, 9125165, 6302363, 5787127, 6863392, 2716109, 63168726, 676565481 ####[facility] [address] [place] [address] Urea nitrogen [Mass/Vol] 17 mg/dL Normal 5-21 [facility] Comment on above: Performed By: #### 1 1520117, 7055400, 7258627, 9309172, 2278494, 5488891, 84850314, 076876419 ####[facility] [address] [place] [address] CBC w/ Auto Diffon 4 Basophil Absolute 0.0 E9/L Normal 0.0-0.2 [facility] Comment on above: Performed By: #### 1 0861932, 9144706, 1907005, 9096406, 8922921, 9866120, 03938251, 776776340 ####[facility] [address] [place] [address] Basophils/100 WBC (Bld) 0.1 % Normal 0.0-2.0 [facility] Comment on above: Performed By: #### 1 1694447, 1111859, 1699357, 3546740, 2573503, 4786245, 56067778, 546583427 ####[facility] [address] [place] [address] Eos Absolute 0.3 E9/L Normal 0.0-0.5 [facility] Comment on above: Performed By: #### 1 3517358, 4540055, 5393468, 6588189, 1388411, 6534310, 84496453, 476102688 ####[address] [address] Eosinophils/100 WBC (Bld) 2.9 % Normal 0.0-8.0 [facility] Comment on above: Performed By: #### 1 7184624, 5287200, 1092107, 3684886, 4054090, 5151924, 48058481, 733901721 ####[address] [address] Erythrocyte distribution width (RBC) [Ratio] 13.6 % Normal 10.9-14.2 [facility] Comment on above: Performed By: #### 1 0197101, 3233614, 6095634, 8078596, 5948739, 5313887, 72947504, 340417365 ####[address] [place] [address] Hematocrit (Bld) [Volume fraction] 32.0 % Low 34.0-46.0 [facility] Comment on above: Performed By: #### 1 4691464, 4671785, 5136026, 0173997, 5446719, 8653807, 58118248, 134839810 ####[address] [place] [address] Hemoglobin (Bld) [Mass/Vol] 10.4 g/dL Low 12.0-16.0 [facility] Comment on above: Performed By: #### 1 2283660, 6754405, 7802863, 4756689, 3925545, 0080035, 22720475, 538097840 ####[facility] [address] [place] [address] Lymph Absolute 1.1 E9/L Normal 1.0-4.0 [facility] Comment on above: Performed By: #### 1 0760536, 2571544, 7800934, 1766832, 8358601, 8764314, 96151392, 064578983 ####[facility] [address] [place] [address] Lymphocytes/100 WBC (Bld) 9.6 % Low 14.0-50.0 [facility] Comment on above: Performed By: #### 1 3196850, 8580060, 6671331, 7958753, 1773111, 5452044, 97080446, 229959768 ####[facility] [address] [place] [address] MCH (RBC) [Entitic mass] 29.9 pg Normal 27.0-34.0 [facility] Comment on above: Performed By: #### 1 9256071, 5120674, 9060411, 3915884, 1398864, 0754280, 64010153, 691861710 ####[facility] [address] [place] [address] MCHC (RBC) [Mass/Vol] 32.4 g/dL Normal 31.4-36.0 [facility] Comment on above: Performed By: #### 1 3443639, 2394001, 7809389, 4202549, 5667194, 1570578, 94003233, 388070188 ####[facility] [address] [place] [address] MCV (RBC) [Entitic vol] 92.2 fL Normal 80.0-100.0 [facility] Comment on above: Performed By: #### 1 1810066, 1146216, 2500318, 0271715, 1989753, 3199674, 68812332, 642093398 ####[facility] [address] [place] [address] [place] Absolute 1.4 E9/L High 0.2-1.0 [facility] Comment on above: Performed By: #### 1 8230671, 9856279, 5794708, 3458851, 3673904, 2284660, 00078566, 414901203 ####[facility] [address] [place] [address] Monocytes/100 WBC (Bld) 11.6 % Normal 4.0-14.0 [facility] Comment on above: Performed By: #### 1 4077627, 8227152, 1736245, 6153878, 3391624, 5556933, 57282817, 388725334 ####[address] [address] Neutro Absolute 8.9 E9/L High 2.0-7.5 [facility] Comment on above: Performed By: #### 1 5962590, 8120162, 1178188, 9597492, 2899132, 3834017, 08745577, 336429410 ####[address] [address] Neutro Auto 75.8 % High 36.0-75.0 [facility] Comment on above: Performed By: #### 1 0070936, 0677649, 1498628, 7196006, 6274643, 7893489, 18850013, 474311206 ####[address] [place] [address] Platelet 375.0 E9/L Normal 150.0-500.0 [facility] Comment on above: Performed By: #### 1 0807815, 4930937, 6059036, 7972003, 3611259, 1618166, 56948178, 644043839 ####[address] [address] Platelet mean volume (Bld) [Entitic vol] 7.1 fL Normal 6.4-10.8 [facility] Comment on above: Performed By: #### 1 3578952, 9242390, 9274891, 8677431, 7443283, 7511576, 63529307, 534935041 ####[facility] [address] [place] [address] RBC 3.5 E12/L Low 4.3-5.9 [facility] Comment on above: Performed By: #### 1 9224015, 5175003, 9776081, 1041660, 7570102, 3950489, 33095967, 464311871 ####[facility] [address] [place] [address] WBC 11.8 E9/L High 4.0-11.0 [facility] Comment on above: Performed By: #### 1 2767789, 3261806, 8019317, 9005496, 5651446, 4572790, 27747627, 714749380 ####[facility] [address] [place] [address] Capillary Glucose POCon 03-20 Glucose [Mass/Vol] 170 mg/dL High 55-99 [facility] Comment on above: Result Comment: Sandhya JOHNSTON Performed By: #### 2 89714564 ####[facility] [address] [place] [address] Glucose [Mass/Vol] 106 mg/dL High 55-99 [facility] Comment on above: Result Comment: Sandhya JOHNSTON Performed By: #### 2 82454611 ####[facility] [address] [place] [address] Glucose [Mass/Vol] 130 mg/dL High 55-99 [facility] Comment on above: Result Comment: Sandhya JOHNSTON Performed By: #### 2 84355526 ####[facility] [address] [place] [address] Glucose [Mass/Vol] 110 mg/dL High 55-99 [facility] Comment on above: Result Comment: Sandhya luo RN/ Performed By: #### 2 62036932 ####[facility] [address] [place] [address] Glucose [Mass/Vol] 87 mg/dL Normal 55-99 [facility] Comment on above: Result Comment: Sandhya luo RN/ Performed By: #### 2 49257058 ####[facility] [address] [place] [address] Glucose [Mass/Vol] 62 mg/dL Normal 55-99 [facility] Comment on above: Result Comment: Sandhya luo RN/ Performed By: #### 2 90748181 ####[facility] [address] [place] [address] HcwU9pbo 04-02-2023 HbA1c (Bld) [Mass fraction] 6.6 % High <=5.9 [facility] Comment on above: Performed By: #### 1 4336788, 4092169, 9473451, 8246663, 0658622, 7192257, 52805296, 655303910 ####[facility] [address] [place] [address] Interdisciplinary Note - Miguelito e Manageron 04-02-2023 Interdisciplinary Note - Production Cell Leader [facility] Comment on above: Result Comment: Elec tronically Signed By: Chanda Adames\.br\Date and Time Signed: 04/02/23 12:45 EST Lipid Panelon 04-02-2023 Cholesterol [Mass/Vol] 153 mg/dL Normal 120-200 [facility] Comment on above: Performed By: #### 1 2259381, 4302476, 1152815, 5996193, 6147776, 6563944, 85305477, 865294172 ####[facility] [address] [place] [address] Cholesterol in HDL [Mass/Vol] 42 mg/dL Invalid Interpretation Code [facility] Comment on above: Result Comment: '>= 60 LOW RISK''<= 40 HIGH RISK' Performed By: #### 1 3475895, 6692720, 4554754, 9736230, 0981858, 8957613, 37927790, 093852537 ####[facility] [address] [place] [address] Cholesterol in LDL [Mass/Vol] 96 mg/dL Normal <=129 [facility] Comment on above: Performed By: #### 1 4743683, 6714376, 0356480, 0285992, 2208231, 9223189, 60300317, 896609083 ####[facility] [address] [place] [address] Cholesterol in VLDL [Mass/Vol] 17 mg/dL Normal 7-40 [facility] Comment on above: Performed By: #### 1 8069731, 3879290, 8022694, 2608962, 6172250, 6622644, 66081126, 532175737 ####[facility] [address] [place] [address] Triglyceride [Mass/Vol] 86 mg/dL Normal <=149 [facility] Comment on above: Performed By: #### 1 6031719, 8893809, 5670213, 3510817, 7936385, 7816641, 71296716, 644059508 ####[facility] [address] [place] [address] Magnesiumon 04-02-2023 Magnesium [Mass/Vol] 1.9 mg/dL Normal 1.3-2.4 [facility] Comment on above: Performed By: #### 1 8322282, 3342573, 3471049, 6873230, 7899350, 3734334, 13914665, 942481882 ####[facility] [address] [place] [address] Message from Medicareon 03-20 Message from Medicare [id number]# 1.00TIFF Normal [facility] Respiratory Panel by PCRon 0 04-02-2023 Adenovirus DNA CAL+non-probe Ql (Nph) Not detected Normal [facility] Comment on above: Result Comment: Test ing was performed using nucleic acid amplification including Influenza A, Influenza A H1, Influenza A H3, Influenza B, RSV A, RSV B, Adenovirus, Human Metapneumovirus, Parainfluenza 1,2,3, and 4, Rhinovirus, Bordetella parapertussis/bronchiseptica, Bordetella holmesii, and Bordetella pertussis. Performed By: #### 1 086752562 ####[place] [address] B. parapertussis DNA CAL+probe Ql (Upper resp) Not detected Normal Not Detected [facility] Comment on above: Performed By: #### 1 700220072 ####[place] [address] B. pertussis DNA CAL+probe Ql (Upper resp) Not detected Normal Not Detected [facility] Comment on above: Performed By: #### 1 702068595 ####[place] [address] FLUAV H1 RNA CAL+non-probe Ql (Nph) Not detected Normal [facility] Comment on above: Performed By: #### 1 911260359 ####[place] [address] FLUAV H3 RNA CAL+non-probe Ql (Nph) Not detected Normal [facility] Comment on above: Performed By: #### 1 497431880 ####[place] [address] FLUAV RNA CAL+non-probe Ql (Nph) Not detected Normal [facility] Comment on above: Performed By: #### 1 198589656 ####[place] [address] FLUBV RNA CAL+non-probe Ql (Nph) Not detected Normal [facility] Comment on above: Performed By: #### 1 036491767 ####[place] [address] Human Metapneumovirus Not detected Normal [facility] Comment on above: Result Comment: This test result should be correlated with clinical presentations and medical history by a healthcare provider to determine its clinical significance. Performed By: #### 1 662090113 ####[address] [place] [address] Parainfluenza virus 1 RNA CAL+non-probe Ql (Nph) Not detected Normal [facility] Comment on above: Performed By: #### 1 484707886 ####[address] [place] [address] Parainfluenza virus 2 RNA CAL+non-probe Ql (Nph) Not detected Normal [facility] Comment on above: Performed By: #### 1 319337712 ####[address] [place] [address] Parainfluenza virus 3 RNA CAL+non-probe Ql (Nph) Not detected Normal [facility] Comment on above: Performed By: #### 1 932698412 ####[address] [place] [address] Parainfluenza virus 4 RNA CAL+non-probe Ql (Nph) Not detected Normal [facility] Comment on above: Performed By: #### 1 770405501 ####[address] [place] [address] Resp Panel Intrl QC Pass Normal [facility] Comment on above: Performed By: #### 1 027514079 ####[address] [place] [address] Rhinovirus+Enterovirus RNA CAL+non-probe Ql (Nph) Not detected Normal [facility] Comment on above: Performed By: #### 1 169522341 ####[address] [place] [address] RSV RNA CAL+non-probe Ql (Nph) Not detected Normal [facility] Comment on above: Performed By: #### 1 918896357 ####[address] [address] TSH With T4fr Reflexon 04-02 TSH Qn 2.19 m[IU]/L Normal 0.34-5.60 [facility] Comment on above: Performed By: #### 1 5655659, 2240520, 3699976, 5209418, 2369172, 4057535, 67002255, 911056061 ####[facility] [address] [place] [address] Valproic Acidon 04-02-2023 Valpro Acid Lvl 55 microgram/mL Normal 50-99 Fish er [facility] Comment on above: Performed By: #### 1 0028044, 4179734, 1403208, 1580082, 0503894, 5007448, 79209405, 711350566 ####[facility] [address] [place] [address] eGFRon 04-02-2023 eGFR 47 mL/min/1.73 m2 Low >=59 [facility] Comment on above: Order Comment: Order added by Discern Expert. Performed By: #### 1 4793019, 9787711, 6043191, 5245040, 9897264, 5457618, 98956687, 168835190 ####[facility] [address] [place] [address] BMPon 04-01-2023 Anion gap [Moles/Vol] 16 mmol/L Normal 6-16 [facility] Comment on above: Performed By: #### 2 057240, 3810489, 11868265, 99062132, 12620960, 62299442, 5979439 ####[facility] [address] [place] [address] BUN/Creat Ratio 12 No Units Normal 10-20 [facility] Comment on above: Performed By: #### 2 243431, 2474150, 21820439, 87287651, 23846882, 32375622, 7609053 ####[facility] [address] [place] [address] Calcium [Mass/Vol] 9.6 mg/dL Normal 8.9-11.1 [facility] Comment on above: Performed By: #### 2 402395, 4240631, 39700819, 48280309, 90498067, 11289074, 5782124 ####[facility] [address] [place] [address] Chloride [Moles/Vol] 105 mmol/L Normal 101-111 [facility] Comment on above: Performed By: #### 2 543595, 6891434, 85043010, 30149550, 79873213, 92563225, 3917737 ####[facility] [address] [place] [address] CO2 [Moles/Vol] 21 mmol/L Normal 21-31 [facility] Comment on above: Performed By: #### 2 928117, 1000937, 86705785, 85222583, 53196457, 65775556, 7182915 ####[facility] [address] [place] [address] Creatinine [Mass/Vol] 1.4 mg/dL High 0.5-1.3 [facility] Comment on above: Performed By: #### 2 883886, 1134553, 94548266, 96519740, 06228378, 41386199, 2144087 ####[facility] [address] [place] [address] Glucose [Mass/Vol] 75 mg/dL Normal 55-199 [facility] Comment on above: Performed By: #### 2 983664, 0341179, 95590572, 97565175, 79887928, 78717359, 6521216 ####[facility] [address] [place] [address] Potassium [Moles/Vol] 5.5 mmol/L High 3.5-5.3 [facility] Comment on above: Performed By: #### 2 053851, 0075560, 06727895, 96025914, 98900418, 36225617, 4335081 ####[facility] [address] [place] [address] Sodium [Moles/Vol] 136 mmol/L Normal 135-145 [facility] Comment on above: Performed By: #### 2 330242, 0937905, 63432305, 20286106, 99325125, 05398009, 3006490 ####[facility] [address] [place] [address] Urea nitrogen [Mass/Vol] 17 mg/dL Normal 5-21 [facility] Comment on above: Performed By: #### 2 049423, 6724752, 17047480, 57019681, 61700409, 90539219, 7150697 ####[address] [address] BNPon 04-01-2023 Int Ctr BNP Pass Normal [facility] Comment on above: Performed By: #### 2 784538, 7644316, 53768296, 17273941, 28724171, 18499293, 3547456 ####[address] [address] Natriuretic peptide B (Bld) [Mass/Vol] 465 pg/mL High 5-80 [facility] Comment on above: Performed By: #### 2 605938, 1568744, 76584926, 82428626, 41590378, 70613575, 7751446 ####[address] [address] CBC w/ Auto Diffon 4 Basophil Absolute 0.0 E9/L Normal 0.0-0.2 [facility] Comment on above: Performed By: #### 2 343336, 8387231, 01505352, 33847514, 76270070, 14553499, 1446519 ####[facility] [address] [place] [address] Basophils/100 WBC (Bld) 0.3 % Normal 0.0-2.0 [facility] Comment on above: Performed By: #### 2 365607, 9533488, 06402036, 79696254, 44846786, 76110926, 3985372 ####[facility] [address] [place] [address] Eos Absolute 0.4 E9/L Normal 0.0-0.5 [facility] Comment on above: Performed By: #### 2 990579, 8925412, 35294517, 40595102, 09354685, 21466786, 7281783 ####[address] [place] [address] Eosinophils/100 WBC (Bld) 3.3 % Normal 0.0-8.0 [facility] Comment on above: Performed By: #### 2 020104, 0361169, 29671210, 31408045, 93968387, 13246837, 9388436 ####[address] [address] Erythrocyte distribution width (RBC) [Ratio] 14.1 % Normal 10.9-14.2 [facility] Comment on above: Performed By: #### 2 432215, 7333922, 00841760, 83035670, 20603595, 64662281, 3249304 ####[address] [address] Hematocrit (Bld) [Volume fraction] 37.0 % Normal 34.0-46.0 [facility] Comment on above: Performed By: #### 2 535560, 5280458, 70083513, 21034900, 16238757, 32222005, 4106430 ####[address] [address] Hemoglobin (Bld) [Mass/Vol] 11.9 g/dL Low 12.0-16.0 [facility] Comment on above: Performed By: #### 2 691229, 7115359, 87959008, 31947408, 89415763, 34317577, 9588447 ####[address] [address] Lymph Absolute 1.5 E9/L Normal 1.0-4.0 [facility] Comment on above: Performed By: #### 2 710431, 0589762, 10405896, 17780857, 88949264, 29902601, 6513505 ####[facility] [address] [place] [address] Lymphocytes/100 WBC (Bld) 13.6 % Low 14.0-50.0 [facility] Comment on above: Performed By: #### 2 584167, 4906927, 63012822, 58609066, 05510194, 43881367, 1255809 ####[address] [place] [address] MCH (RBC) [Entitic mass] 29.6 pg Normal 27.0-34.0 [facility] Comment on above: Performed By: #### 2 169463, 1795001, 93872353, 56383625, 98373539, 79333127, 7164524 ####[facility] [address] [place] [address] MCHC (RBC) [Mass/Vol] 32.1 g/dL Normal 31.4-36.0 [facility] Comment on above: Performed By: #### 2 314526, 2706743, 88218157, 75569262, 02568918, 15086208, 8691790 ####[address] [place] [address] MCV (RBC) [Entitic vol] 92.2 fL Normal 80.0-100.0 [facility] Comment on above: Performed By: #### 2 744973, 1650065, 80773087, 73918983, 92310973, 99494447, 3029928 ####[facility] [address] [place] [address] [place] Absolute 1.2 E9/L High 0.2-1.0 [facility] Comment on above: Performed By: #### 2 967236, 3784326, 36826543, 80927711, 66587125, 27453165, 6523406 ####[facility] [address] [place] [address] Monocytes/100 WBC (Bld) 10.7 % Normal 4.0-14.0 [facility] Comment on above: Performed By: #### 2 231231, 4207804, 98902048, 43462993, 60268471, 40610303, 8674195 ####[facility] [address] [place] [address] Neutro Absolute 8.0 E9/L High 2.0-7.5 [facility] Comment on above: Performed By: #### 2 840529, 1730997, 81191852, 12309595, 35202219, 12911562, 2589134 ####[address] [address] Neutro Auto 72.1 % Normal 36.0-75.0 [facility] Comment on above: Performed By: #### 2 267417, 9115334, 82807615, 16307751, 26042335, 51466702, 7100926 ####[address] [address] Platelet 404.0 E9/L Normal 150.0-500.0 [facility] Comment on above: Performed By: #### 2 761829, 9890230, 38113402, 09374492, 28211760, 98221344, 2024885 ####[facility] [address] [place] [address] Platelet mean volume (Bld) [Entitic vol] 7.5 fL Normal 6.4-10.8 [facility] Comment on above: Performed By: #### 2 356411, 0670282, 09333093, 27938457, 40423873, 45070099, 7022660 ####[address] [place] [address] RBC 4.0 E12/L Low 4.3-5.9 [facility] Comment on above: Performed By: #### 2 164130, 3689449, 86688270, 82558199, 97700255, 98982403, 1323143 ####[facility] [address] [place] [address] WBC 11.1 E9/L High 4.0-11.0 [facility] Comment on above: Performed By: #### 2 126459, 1062413, 90014532, 00981690, 79925159, 47156525, 7978211 ####[facility] [address] [place] [address] CT Chest w/o Contraston 03-20 CT Chest w/o Contrast Normal [facility] Capillary Glucose POCon 03-20 Glucose [Mass/Vol] 66 mg/dL Normal 55-99 [facility] Comment on above: Result Comment: Sandhya luo RN/ Performed By: #### 2 29912424 ####[facility] [address] [place] [address] Consent for Treatmenton 03-20 Consent for Treatment [id number] 020 [id number]# 1.00TIFF Normal [facility] ED Clinical Summaryon 2023 ED Clinical Summary Normal [facility] ED Patient Education Noteon 04-01-2023 ED Patient Education Note Normal [facility] ED Patient Summaryon 024 ED Patient Summary Normal [facility] Influenza A&B Agon 4 Influenzae A Ag Negative Normal Negative [facility] Comment on above: Performed By: #### 2 [id number], [id number] ####[facility] [address] [place] [address] Influenzae B Ag Negative Normal Negative [facility] Comment on above: Result Comment: Test sensitivity and specificity vary for age group, specimen type, antigen types, and prevalence of disease. Test results must be evaluated in conjunction with other clinical data available to the physician. Individuals who received nasally administered Influenza A vaccine may have positive test results up to 3 days after vaccination. Performed By: #### 2 [id number], 87985140 ####[facility] [address] [place] [address] Interdisciplinary Note - Mann singon 04-01-2023 Interdisciplinary Note - Nursing received no paper work from [employer] regarding pt medications. Normal [facility] Lactic Acidon 04-01-2023 Lactic Acid Lvl 0.7 mmol/L Normal 0.5-2.2 [facility] Comment on above: Performed By: #### 2 831892, 6805043, 41647211, 17738338, 14797006, 40037835, 0504341 ####[facility] [address] [place] [address] Monitor Recordon 04-01-2023 Monitor Record [id number]# 1.00TIFF Normal [facility] PT & PTTon 04-01-2023 aPTT Coag (PPP) [Time] 31.7 second(s) Normal 25.1-36.5 [facility] Comment on above: Result Comment: Para meter [...] the same coagulation reagent and instrumentation as [facility]. Currently there are no coagulation studies available worldwide for children to 14 days, and no normal ranges. Heparin therapeutic range (represented by Anti-Factor Xa activity of 0.2 - 0.4 U/mL) corresponds to PTT of 56.6 - 109.0 sec. Performed By: #### 2 098257, 0499360, 34840054, 94357056, 48275161, 24817664, 3905556 ####[facility] [address] [place] [address] INR Coag (PPP) [Relative time] 1.24 {INR} Invalid Interpretation Code [facility] Comment on above: Result Comment: INR results are specifically intended to assess patients stabilized on long-term Anticoagulation therapy suggested INR?s ?Less Intensive Anticoagulation? 2.0 ? 3.0Conventional Range 3.0 ? 4.5 Performed By: #### 2 315037, 9973130, 62823637, 23222437, 96119952, 42813263, 0611866 ####[facility] [address] [place] [address] PT Coag (PPP) [Time] 13.9 second(s) High 9.4-12.5 [facility] Comment on above: Result Comment: 15 d [...] the same coagulation reagent and instrumentation as [facility]. Currently there are no coagulation studies available worldwide for children to 14 days, and no normal ranges. Performed By: #### 2 102334, 2069009, 35670211, 07652679, 90583253, 58174490, 5051854 ####[facility] [address] [place] [address] Pre-Arrival Noteon Pre-Arrival Note Normal [facility] Procalcitoninon 04-01-2023 Procalcitonin .17 ng/mL Normal .00-.50 [facility] Comment on above: Result Comment: <0.5 ng/mL [...] to 24 hours. Performed By: #### 1 8080426, [id number] ####[address] [place] [address] Progress Note - Pharmacyon 0 04-01-2023 Progress Note - Pharmacy Normal [facility] Rapid COVID Antigen ([facility])on 04-01-2023 Rapid COV Int NEG Ctl Pass Normal [facility] Comment on above: Performed By: #### 2 [id number], 10504689 ####[address] [address] Rapid COV Int POS Ctl Pass Normal [facility] Comment on above: Performed By: #### 2 [id number], 95771431 ####[address] [address] SARS-CoV+SARS-CoV-2 (COVID-19) Ag IA.rapid Ql (Resp) Not detected Normal Not Detected [facility] Comment on above: Result Comment: The Leadspaceitor? System for Rapid Detection of SARS-CoV-2 is [...] For in vitro diagnostic use. In the [facility], only for use under an Emergency [...] or revoked sooner. Performed By: #### 2 [id number], [id number] ####[facility] [address] [place] [address] Troponin 0 Hr.on 04-01-2023 Troponin 9.60 pg/mL Low 10.10-27.10 [facility] Comment on above: Result Comment: The 95% CI (Confidence Interval) PPV (Positive Predictive Value) for myocardial infarction in females is 38 pg/mL, in males 51 pg/mL. The results should be used in conjunction with clinical conditions of myocardial infarction.(Access High Sensitivity Troponin I Instructions For Use, [employer], September 2017) Performed By: #### 2 985789, 3656677, 28322312, 60773191, 68769241, 59270817, 6260395 ####[facility] [address] [place] [address] Troponin 3 Hr.on 04-01-2023 Troponin 6.60 pg/mL Low 10.10-27.10 [facility] Comment on above: Result Comment: The 95% CI (Confidence Interval) PPV (Positive Predictive Value) for myocardial infarction in females is 38 pg/mL, in males 51 pg/mL. The results should be used in conjunction with clinical conditions of myocardial infarction.(Access High Sensitivity Troponin I Instructions For Use, [employer], September 2017) Performed By: #### 1 1128116, [id number] ####[facility] [address] [place] [address] Troponin 6 Hr.on 04-01-2023 Troponin 7.10 pg/mL Low 10.10-27.10 [facility] Comment on above: Result Comment: The 95% CI (Confidence Interval) PPV (Positive Predictive Value) for myocardial infarction in females is 38 pg/mL, in males 51 pg/mL. The results should be used in conjunction with clinical conditions of myocardial infarction.(Access High Sensitivity Troponin I Instructions For Use, [employer], September 2017) Performed By: #### 1 [id number] ####[address] [place] [address] Troponin 9 Hr.on 04-01-2023 Troponin 8.00 pg/mL Low 10.10-27.10 [facility] Comment on above: Result Comment: The 95% CI (Confidence Interval) PPV (Positive Predictive Value) for myocardial infarction in females is 38 pg/mL, in males 51 pg/mL. The results should be used in conjunction with clinical conditions of myocardial infarction.(Access High Sensitivity Troponin I Instructions For Use, [employer], September 2017) Performed By: #### 1 [id number] ####[facility] [address] [place] [address] XR Chest Single Viewon 04-01 XR Chest Single View Normal [facility] eGFRon 04-01-2023 eGFR 43 mL/min/1.73 m2 Low >=59 [facility] Comment on above: Order Comment: Order added by Discern Expert. Performed By: #### 2 694472, 3387232, 01198034, 01296837, 68517908, 49938953, 7394056 ####[facility] [address] [place] [address] BMPon 03-29-2023 Anion gap [Moles/Vol] 12 mmol/L Normal 6-16 [facility] Comment on above: Performed By: #### 2 314678, 19445964, 8679545 ####[facility] [address] [place] [address] BUN/Creat Ratio 15 No Units Normal 10-20 [facility] Comment on above: Performed By: #### 2 670056, 46549101, 4052790 ####[facility] [address] [place] [address] Calcium [Mass/Vol] 8.1 mg/dL Low 8.9-11.1 [facility] Comment on above: Performed By: #### 2 343369, 22374602, 2219959 ####[facility] [address] [place] [address] Chloride [Moles/Vol] 105 mmol/L Normal 101-111 [facility] Comment on above: Performed By: #### 2 704684, 84853067, 2292276 ####[facility] [address] [place] [address] CO2 [Moles/Vol] 21 mmol/L Normal 21-31 [facility] Comment on above: Performed By: #### 2 187256, 02161340, 7586995 ####[facility] [address] [place] [address] Creatinine [Mass/Vol] 1.5 mg/dL High 0.5-1.3 [facility] Comment on above: Performed By: #### 2 063418, 54413981, 1866910 ####[facility] [address] [place] [address] Glucose [Mass/Vol] 153 mg/dL Normal 55-199 [facility] Comment on above: Performed By: #### 2 714426, 63817717, 6082318 ####[facility] [address] [place] [address] Potassium [Moles/Vol] 5.3 mmol/L Normal 3.5-5.3 [facility] Comment on above: Performed By: #### 2 494664, 47984726, 1761924 ####[facility] [address] [place] [address] Sodium [Moles/Vol] 133 mmol/L Low 135-145 [facility] Comment on above: Performed By: #### 2 540986, 60173488, 2334948 ####[address] [address] Urea nitrogen [Mass/Vol] 22 mg/dL High 5-21 [facility] Comment on above: Performed By: #### 2 448036, 29550801, 8814058 ####[facility] [address] [place] [address] CBC w/ Auto Diffon 4 Basophils/100 WBC (Bld) 0.2 % Normal 0.0-2.0 [facility] Comment on above: Performed By: #### 2 791129, 43574155, 2401527 ####[address] [address] Eosinophils/100 WBC (Bld) 7.7 % Normal 0.0-8.0 [facility] Comment on above: Performed By: #### 2 490117, 28275082, 2788958 ####[address] [address] Erythrocyte distribution width (RBC) [Ratio] 14.1 % Normal 10.9-14.2 [facility] Comment on above: Performed By: #### 2 177781, 53336770, 2321237 ####[address] [address] Hematocrit (Bld) [Volume fraction] 32.0 % Low 34.0-46.0 [facility] Comment on above: Performed By: #### 2 028384, 97167697, 7639516 ####[address] [address] Hemoglobin (Bld) [Mass/Vol] 10.3 g/dL Low 12.0-16.0 [facility] Comment on above: Performed By: #### 2 881920, 56940235, 0119040 ####[address] [address] Lymphocytes/100 WBC (Bld) 22.1 % Normal 14.0-50.0 [facility] Comment on above: Performed By: #### 2 460806, 96384582, 0437123 ####[address] [address] MCH (RBC) [Entitic mass] 30.0 pg Normal 27.0-34.0 [facility] Comment on above: Performed By: #### 2 140367, 13543611, 2086939 ####[address] [address] MCHC (RBC) [Mass/Vol] 31.9 g/dL Normal 31.4-36.0 [facility] Comment on above: Performed By: #### 2 637094, 98021888, 3205741 ####[address] [address] MCV (RBC) [Entitic vol] 94.1 fL Normal 80.0-100.0 [facility] Comment on above: Performed By: #### 2 063710, 07927584, 9035867 ####[address] [address] Monocytes/100 WBC (Bld) 9.2 % Normal 4.0-14.0 [facility] Comment on above: Performed By: #### 2 825627, 36990103, 4767827 ####[address] [address] NEUTRO AUTO 60.8 % Normal 36.0-75.0 [facility] Comment on above: Performed By: #### 2 665339, 33851168, 3677961 ####[address] [address] Platelet mean volume (Bld) [Entitic vol] 7.5 fL Normal 6.4-10.8 [facility] Comment on above: Performed By: #### 2 847544, 25717090, 7749942 ####[facility] [address] [place] [address] Basophil Absolute 0.0 E9/L Normal 0.0-0.2 [facility] Comment on above: Performed By: #### 2 786448, 81849197, 7972817 ####[address] [address] Eos Absolute 0.9 E9/L High 0.0-0.5 [facility] Comment on above: Performed By: #### 2 157439, 65707453, 7007871 ####[address] [address] Lymph Absolute 2.5 E9/L Normal 1.0-4.0 [facility] Comment on above: Performed By: #### 2 087494, 18236425, 5139909 ####[address] [address] [place] Absolute 1.0 E9/L Normal 0.2-1.0 [facility] Comment on above: Performed By: #### 2 603032, 97583025, 9932807 ####[address] [address] Neutro Absolute 6.8 E9/L Normal 2.0-7.5 [facility] Comment on above: Performed By: #### 2 308463, 82574185, 4406233 ####[address] [address] Platelet 270.0 E9/L Normal 150.0-500.0 [facility] Comment on above: Performed By: #### 2 394228, 85402493, 9095680 ####[address] [address] RBC 3.4 E12/L Low 4.3-5.9 [facility] Comment on above: Performed By: #### 2 747934, 02196431, 2147942 ####[address] [place] [address] WBC 11.3 E9/L High 4.0-11.0 [facility] Comment on above: Performed By: #### 2 504315, 15354628, 0684691 ####[facility] [address] [place] [address] [facility] CBC W/ AUTO DIFFon 03-20 Basophils (Bld) [...] [facility]29-2023 Physician Order [id number]# 1.00TIFF Normal [facility] eGFRon 03-29-2023 eGFR 40 mL/min/1.73 m2 Low >=59 [facility] Comment on above: Order Comment: Order added by Discern Expert. Performed By: #### 2 698190, 54776194, 9387528 ####[facility] [address] [place] [address] IntraOperative Documentson 0 03-12-2023 IntraOperative Documents [id number]# 1.00TIFF Normal [facility] Consenton 03-10-2023 Consent [id number]# 1.00TIFF Normal [facility] Discharge Instructionson Discharge Instructions [id number]# 1.00TIFF Normal [facility] Main OR Intraoperative Recor don 03-10-2023 Main OR Intraoperative Record Normal [facility] Postoperative Documentson Postoperative Documents [id number]# 1.00TIFF Normal [facility] Consent for Treatmenton 02-17 Consent for Treatment [id number]#1 .00TIFF Normal [facility] Discharge Instructionson Discharge Instructions Normal [facility] Comment on above: Result Comment: Elec tronically Signed By: ACACIA GARVIN, JANNY Parker\.br\Date and Time Signed: 03/07/23 13:39 EST Endoscopic Procedure Report - Otheron 03-07-2023 Endoscopic Procedure Report - Other Normal [facility] Comment on above: Result Comment: Elec tronically Signed By: Kain VIVEROS, Giulia Kahn\.br\Date and Time Signed: 03/07/23 13:28 EST Other Comment: Corazon sanon Attachment - attachment storage system not supported [id number] Can be viewed in source systemMissing Attachment - attachment storage system not supported [id number] Can be viewed in source systemMissing Attachment - attachment storage system not supported [id number] Can be viewed in source systemMissing Attachment - attachment storage system not supported [id number] Can be viewed in source systemMissing Attachment - attachment storage system not supported [id number] Can be viewed in source systemMissing Attachment - attachment storage system not supported 0526882 Can be viewed in source systemMissing Attachment - attachment storage system not supported 6019986 Can be viewed in source systemMissing Attachment - attachment storage system not supported 0635796 Can be viewed [facility] Attachment - attachment storage system not supported 4009762 Can be viewed in source systemMissing Attachment - attachment storage system not supported 4510121 Can be viewed in [facility] Attachment - attachment storage system not supported 5691246 Can be viewed in source system Inpatient Patient Summaryon 03-07-2023 Inpatient Patient Summary Normal [facility] Main OR PACU I Recordon 02-17 Main OR PACU I Record Normal [facility] Monitor Recordon 03-07-2023 Monitor Record [id number]# 1.00TIFF [facility] Monitor Record [id number]# 1.00TIFF [facility] Outpatient Surgery Discharge Instructionon 03-07-2023 Outpatient Surgery Discharge Instruction [facility] Patient Education - Texton 0 03-07-2023 Patient Education - Text [facility] Progress Note-Physicianon Progress Note-Physician Normal [facility] Comment on above: Result Comment: Elec tronically Signed By: Lance Bender)Chance\.br\Date and Time Signed: 03/07/23 14:02 EST Progress Note-Physician Normal [facility] Comment on above: Result Comment: Elec tronically Signed By: Chance Ambrose DO\.br\Date and Time Signed: 03/07/23 12:44 EST Coding Queryon 01-23-2023 Coding Query [facility] Consent for Procedure/Surger yon 01-16-2023 Consent for Procedure/Surgery [id number]#1 .00TIFF [facility] Consent for Treatmenton 12-20 Consent for Treatment [id number]#1 .00TIFF [facility] Main OR Preoperative Recordo n 01-16-2023 Main OR Preoperative Record [facility] Nursing Assessmenton 023 Nursing Assessment [id number]# 1.00TIFF [facility] Discharge Instructionson Discharge Instructions [id number]# 1.00TIFF [facility] Transfer Documentson 023 Transfer Documents [id number]# 1.00TIFF [facility] Auto Diffon 01-09-2023 Basophils/100 WBC (Bld) 0.3 % Normal 0.0-2.0 [facility] Comment on above: Order Comment: Order Added by Discern Expert. Performed By: #### 1 8840572, 7834357, 1002422, 9385907, 8035010, 6999121 ####[address] [place] [address] Basophils/Leukocytes Auto (Bld) [Pure # fraction] 0.0 E9/L Normal 0.0-0.2 [facility] Comment on above: Order Comment: Order Added by Discern Expert. Performed By: #### 1 6416649, 7126925, 2329791, 5497396, 2636929, 6919251 ####[address] [address] Eosinophils/100 WBC (Bld) 5.3 % Normal 0.0-8.0 [facility] Comment on above: Order Comment: Order Added by Discern Expert. Performed By: #### 1 7397062, 0359414, 3254812, 3483950, 3129696, 2680857 ####[address] [address] Eosinophils/Leukocytes Auto (Bld) [Pure # fraction] 0.5 E9/L Normal 0.0-0.5 [facility] Comment on above: Order Comment: Order Added by Discern Expert. Performed By: #### 1 7276353, 1768841, 9259364, 4456936, 4991828, 1925747 ####[address] [address] Lymphocytes/100 WBC (Bld) 35.3 % Normal 14.0-50.0 [facility] Comment on above: Order Comment: Order Added by Discern Expert. Performed By: #### 1 9098644, 0671504, 0591407, 1837158, 0945703, 7686299 ####[address] [address] Lymphocytes/Leukocytes Auto (Bld) [Pure # fraction] 3.1 E9/L Normal 1.0-4.0 [facility] Comment on above: Order Comment: Order Added by Michael Expert. Performed By: #### 1 5202295, 5070423, 2253907, 3337191, 9077410, 5141455 ####[facility] [address] [place] [address] Monocytes/100 WBC (Bld) 6.3 % Normal 4.0-14.0 [facility] Comment on above: Order Comment: Order Added by Discern Expert. Performed By: #### 1 5545658, 0396973, 6841235, 3245604, 0901903, 1142240 ####[address] [place] [address] Monocytes/Leukocytes Auto (Bld) [Pure # fraction] 0.6 E9/L Normal 0.2-1.0 [facility] Comment on above: Order Comment: Order Added by Michael Expert. Performed By: #### 1 7229621, 3591422, 3110874, 1521045, 9201188, 5227102 ####[address] [address] Neutrophils/100 WBC (Bld) 52.8 % Normal 36.0-75.0 [facility] Comment on above: Order Comment: Order Added by Michael Expert. Performed By: #### 1 9532056, 4798178, 9469124, 0008945, 4686995, 6605739 ####[address] [address] Neutrophils/Leukocytes Auto (Bld) [Pure # fraction] 4.7 E9/L Normal 2.0-7.5 [facility] Comment on above: Order Comment: Order Added by Michael Expert. Performed By: #### 1 6098738, 4663103, 4402522, 1538832, 3621989, 3118922 ####[address] [place] [address] CBC w/ Auto Diffon 3 Erythrocyte distribution width (RBC) [Ratio] 13.5 % Normal 10.9-14.2 [facility] Comment on above: Performed By: #### 1 9731465, 1827693, 4294815, 5655918, 3045862, 6153075 ####[facility] [address] [place] [address] Hematocrit (Bld) [Volume fraction] 31.4 % Low 34.0-46.0 [facility] Comment on above: Performed By: #### 1 4375886, 8357845, 3298999, 5364617, 7024684, 4602424 ####[address] [place] [address] Hemoglobin (Bld) [Mass/Vol] 10.6 g/dL Low 12.0-16.0 [facility] Comment on above: Performed By: #### 1 6976627, 5061214, 9547553, 5815470, 0126487, 2058439 ####[address] [address] MCH (RBC) [Entitic mass] 30.5 pg Normal 27.0-34.0 [facility] Comment on above: Performed By: #### 1 6860057, 8434588, 0188540, 9061664, 2630400, 0427195 ####[address] [place] [address] MCHC (RBC) [Mass/Vol] 33.8 g/dL Normal 31.4-36.0 [facility] Comment on above: Performed By: #### 1 5763438, 6951515, 1118895, 3512293, 9781881, 4104144 ####[address] [place] [address] MCV (RBC) [Entitic vol] 90.2 fL Normal 80.0-100.0 [facility] Comment on above: Performed By: #### 1 7121100, 2443480, 4673086, 2908015, 0408753, 4108394 ####[address] [place] [address] Platelet mean volume (Bld) [Entitic vol] 7.2 fL Normal 6.4-10.8 [facility] Comment on above: Performed By: #### 1 2100776, 6926276, 3853891, 0104850, 2112322, 5133903 ####[facility] [address] [place] [address] Platelets (Bld) [#/Vol] 255.0 E9/L Normal 150.0-500.0 [facility] Comment on above: Performed By: #### 1 3475198, 8667495, 7492613, 1186308, 6508473, 9718174 ####[facility] [address] [place] [address] RBC (Bld) [#/Vol] 3.5 E12/L Low 4.3-5.9 [facility] Comment on above: Performed By: #### 1 3669636, 8912273, 6932044, 5377184, 7612942, 0560243 ####[address] [address] WBC corrected for nucl RBC Auto (Bld) [#/Vol] 8.8 E9/L Normal 4.0-11.0 [facility] Comment on above: Performed By: #### 1 9741500, 8360548, 5609739, 8961761, 4554072, 9287324 ####[address] [address] CMPon 01-09-2023 Albumin [Mass/Vol] 2.8 g/dL Low 3.3-5.0 [facility] Comment on above: Performed By: #### 1 1474290, 2186814, 7835154, 9762747, 0632088, 8581313 ####[address] [place] [address] Albumin/Globulin (S) [Mass conc ratio] 1.0 Low 1.1-2.2 [facility] Comment on above: Performed By: #### 1 6524997, 8239302, 1272653, 8245712, 1022677, 2946181 ####[address] [place] [address] ALP [Catalytic activity/Vol] 88 Int._Unit/L Normal 21-98 [facility] Comment on above: Performed By: #### 1 0626871, 4858847, 7212344, 1706594, 1262062, 6466010 ####[facility] [address] [place] [address] ALT No additional P-5'-P [Catalytic activity/Vol] 17 Int._Unit/L Normal 6-46 [facility] Comment on above: Performed By: #### 1 9114802, 5444317, 8897835, 7626629, 5591638, 3091003 ####[facility] [address] [place] [address] Anion gap [Moles/Vol] 9 mmol/L Normal 6-16 [facility] Comment on above: Performed By: #### 1 7918019, 1866510, 0515989, 2269441, 2372780, 9936641 ####[facility] [address] [place] [address] AST [Catalytic activity/Vol] 17 Int._Unit/L Normal 5-43 [facility] Comment on above: Performed By: #### 1 5657319, 8617323, 8258716, 0935048, 7633686, 1816301 ####[facility] [address] [place] [address] Bilirubin [Mass/Vol] 0.4 mg/dL Normal 0.0-1.1 [facility] Comment on above: Performed By: #### 1 0249401, 0605743, 9377651, 4295790, 2251561, 5730904 ####[facility] [address] [place] [address] Calcium [Mass/Vol] 8.4 mg/dL Low 8.9-11.1 [facility] Comment on above: Performed By: #### 1 1993782, 1511913, 1876884, 8723329, 6434294, 7210982 ####[facility] [address] [place] [address] Chloride [Moles/Vol] 112 mmol/L High 101-111 [facility] Comment on above: Performed By: #### 1 2390476, 5705005, 4180537, 6534766, 1297059, 5860625 ####[facility] [address] [place] [address] CO2 [Moles/Vol] 22 mmol/L Normal 21-31 [facility] Comment on above: Performed By: #### 1 0386242, 5376170, 9665263, 1654200, 0903536, 9151996 ####[facility] [address] [place] [address] Creatinine [Mass/Vol] 1.3 mg/dL Normal 0.5-1.3 [facility] Comment on above: Performed By: #### 1 9898081, 9723054, 7402256, 5759242, 6085055, 6218726 ####[facility] [address] [place] [address] Globulin (S) [Mass/Vol] 2.7 g/dL Normal 1.4-4.0 [facility] Comment on above: Performed By: #### 1 6537502, 2903137, 6194071, 6130521, 7353427, 3106892 ####[facility] [address] [place] [address] Glucose [Mass/Vol] 90 mg/dL Normal 55-199 [facility] Comment on above: Result Comment: If t his glucose result represents a fasting glucose, interpretation should refer to the following reference range: 55-99 mg/dL Performed By: #### 1 3451853, 5373525, 0476133, 2640386, 9187364, 9113443 ####[facility] [address] [place] [address] Potassium [Moles/Vol] 3.9 mmol/L Normal 3.5-5.3 [facility] Comment on above: Performed By: #### 1 8001863, 5364734, 1515398, 3699735, 0370179, 1864744 ####[facility] [address] [place] [address] Protein [Mass/Vol] 5.5 g/dL Low 6.0-7.8 [facility] Comment on above: Performed By: #### 1 6507042, 8283597, 1467998, 1066179, 0503182, 2838266 ####[facility] [address] [place] [address] Sodium [Moles/Vol] 139 mmol/L Normal 135-145 [facility] Comment on above: Performed By: #### 1 1134982, 1309374, 4164670, 9242898, 1810302, 2603878 ####[facility] [address] [place] [address] Urea nitrogen [Mass/Vol] 30 mg/dL High 5-21 [facility] Comment on above: Performed By: #### 1 9506210, 6932521, 6719171, 1935726, 3000222, 9782133 ####[facility] [address] [place] [address] Urea nitrogen/Creatinine [Mass ratio] 23 No Units High 10-20 [facility] Comment on above: Performed By: #### 1 3069723, 8301841, 6777676, 9366112, 3499197, 4803510 ####[facility] [address] [place] [address] Capillary Glucose POCon 12-19 Glucose [Mass/Vol] 92 mg/dL Normal 55-99 [facility] Comment on above: Result Comment: Sandhya JOHNSTON Performed By: #### 2 34144875 ####[facility] [address] [place] [address] Glucose [Mass/Vol] 84 mg/dL Normal 55-99 [facility] Comment on above: Result Comment: Sandhya JOHNSTON Performed By: #### 2 90913974 ####[facility] [address] [place] [address] Inpatient Clinical Summaryon 01-09-2023 Inpatient Clinical Summary Normal [facility] Inpatient Patient Summaryon 01-09-2023 Inpatient Patient Summary Normal [facility] Inpatient Patient Summary Normal [facility] Interdisciplinary Note - Miguelito e Manageron 01-09-2023 Interdisciplinary Note - Production Cell Leader Normal [facility] Comment on above: Result Comment: Elec tronically Signed By: Mai Wong RN\.br\Date and Time Signed: 01/09/23 12:53 EST Magnesiumon 01-09-2023 Magnesium [Mass/Vol] 1.8 mg/dL Normal 1.3-2.4 [facility] Comment on above: Performed By: #### 1 1994899, 3563837, 9201419, 7069073, 6669940, 7827162 ####[facility] [address] [place] [address] Monitor Recordon 01-09-2023 Monitor Record [id number]# 1.00TIFF Normal [facility] Progress Note-Physicianon Progress Note-Physician Normal [facility] Comment on above: Result Comment: Elec tronically Signed By: Marybel Sofia\.br\Date and Time Signed: 01/09/23 00:25 EST\.br\Electronically Co-Signed By: JALEEL VIVEROS, Michelle\.br\Date and Time Co-Signed: 01/09/23 07:34 EST Valproic Acidon 01-09-2023 Valproate [Moles/Vol] 22 microgram/mL Low 50-99 [facility] Comment on above: Performed By: #### 1 6324815, 0209549, 9661159, 2938849, 6302067, 7144679 ####[facility] [address] [place] [address] eGFRon 01-09-2023 GFR/1.73 sq M.predicted among non-blacks MDRD (S/P/Bld) [Vol rate/Area] 47 mL/min/1.73 m2 Low >=59 [facility] Comment on above: Order Comment: Order added by Discern Expert. Result Comment: Demolition Engineer garfield kidney disease could be indicated at eGFR's of less than 60 mL/min/1.73m2. Kidney failure is indicated at less than 15 mL/min/1.73m2. Performed By: #### 1 9490678, 1332223, 6907829, 9759455, 1697882, 9122546 ####[facility] [address] [place] [address] C Urineon 01-08-2023 Bacteria identified Cx Nom (U) Normal [facility] Comment on above: Performed By: #### 1 6756099, 3149716 ####[facility] [address] [place] [address] Capillary Glucose POCon 12-19 Glucose [Mass/Vol] 116 mg/dL High 55-99 [facility] Comment on above: Result Comment: Sandhya luo RN/ Performed By: #### 2 91089623 ####[facility] [address] [place] [address] Glucose [Mass/Vol] 84 mg/dL Normal 55-99 [facility] Comment on above: Result Comment: Sandhya luo RN/ Performed By: #### 2 57744689 ####[facility] [address] [place] [address] Glucose [Mass/Vol] 114 mg/dL High 55-99 [facility] Comment on above: Result Comment: Sandhya luo RN/ Performed By: #### 2 27288569 ####[facility] [address] [place] [address] Interdisciplinary Note - Miguelito e Manageron 01-08-2023 Interdisciplinary Note - Production Cell Leader Normal [facility] Comment on above: Result Comment: Elec tronically Signed By: Xiomara Solorio\Date and Time Signed: 01/08/23 13:06 EST Monitor Recordon 01-08-2023 Monitor Record [id number]# 1.00TIFF Normal [facility] Monitor Record [id number] 1 [id number]# 1.00TIFF Normal [facility] Monitor Record [id number] 1 [id number]# 1.00TIFF Normal [facility] Monitor Record [id number] 1 [id number]# 1.00TIFF Normal [facility] NM Gastric Emptying Studyon 01-08-2023 NM Gastric Emptying Study Normal [facility] BMPon 01-07-2023 Anion gap [Moles/Vol] 11 mmol/L Normal 6-16 [facility] Comment on above: Performed By: #### 1 3860958, 9475674, 7045736, 1519646, 9515369, 9827664 ####[facility] [address] [place] [address] Calcium [Mass/Vol] 9.0 mg/dL Normal 8.9-11.1 [facility] Comment on above: Performed By: #### 1 9419153, 0384104, 9507967, 3531527, 0406799, 2423954 ####[facility] [address] [place] [address] Chloride [Moles/Vol] 104 mmol/L Normal 101-111 [facility] Comment on above: Performed By: #### 1 6001753, 2401739, 1457290, 5535441, 9500167, 4001446 ####[facility] [address] [place] [address] CO2 [Moles/Vol] 24 mmol/L Normal 21-31 [facility] Comment on above: Performed By: #### 1 8101063, 6194512, 0245759, 2504969, 6225987, 1385142 ####[facility] [address] [place] [address] Creatinine [Mass/Vol] 1.4 mg/dL High 0.5-1.3 [facility] Comment on above: Performed By: #### 1 3098487, 3869615, 2067040, 4230504, 3110266, 1902702 ####[facility] [address] [place] [address] Glucose [Mass/Vol] 201 mg/dL High 55-199 [facility] Comment on above: Result Comment: If t his glucose result represents a fasting glucose, interpretation should refer to the following reference range: 55-99 mg/dL Performed By: #### 1 9205418, 5888251, 6435773, 8485982, 0053195, 6733488 ####[facility] [address] [place] [address] Potassium [Moles/Vol] 3.2 mmol/L Low 3.5-5.3 [facility] Comment on above: Performed By: #### 1 6820272, 5312544, 7235595, 7506826, 2791206, 6862731 ####[facility] [address] [place] [address] Sodium [Moles/Vol] 136 mmol/L Normal 135-145 [facility] Comment on above: Performed By: #### 1 5941577, 1364670, 4211552, 3126831, 4584219, 9947565 ####[facility] [address] [place] [address] Urea nitrogen [Mass/Vol] 29 mg/dL High 5-21 [facility] Comment on above: Performed By: #### 1 1890013, 0044805, 3410045, 2480754, 4091223, 8713836 ####[facility] [address] [place] [address] Urea nitrogen/Creatinine [Mass ratio] 21 No Units High 10-20 [facility] Comment on above: Performed By: #### 1 8383302, 9925530, 1080036, 3093603, 4163465, 7669657 ####[facility] [address] [place] [address] CBC w/Indiceson 01-07-2023 Erythrocyte distribution width (RBC) [Ratio] 13.9 % Normal 10.9-14.2 [facility] Comment on above: Performed By: #### 1 9444938, 1799269, 7662442, 2728741, 9683418, 8694290 ####[facility] [address] [place] [address] Hematocrit (Bld) [Volume fraction] 43.9 % Normal 34.0-46.0 [facility] Comment on above: Performed By: #### 1 9945735, 6584307, 3132958, 6192161, 1902313, 9968686 ####[facility] [address] [place] [address] Hemoglobin (Bld) [Mass/Vol] 14.7 g/dL Normal 12.0-16.0 [facility] Comment on above: Performed By: #### 1 3478300, 1207598, 3124618, 0985619, 7174212, 8732862 ####[facility] [address] [place] [address] MCH (RBC) [Entitic mass] 30.0 pg Normal 27.0-34.0 [facility] Comment on above: Performed By: #### 1 7690419, 6577596, 2944600, 0765773, 3939810, 7335539 ####[facility] [address] [place] [address] MCHC (RBC) [Mass/Vol] 33.5 g/dL Normal 31.4-36.0 [facility] Comment on above: Performed By: #### 1 6724715, 8210336, 6238204, 6314366, 8843743, 8487028 ####[facility] [address] [place], [place] [address] MCV (RBC) [Entitic vol] 89.6 fL Normal 80.0-100.0 [facility] Comment on above: Performed By: #### 1 2388722, 9875088, 5611058, 3833190, 2680327, 5092223 ####[facility] [address] [place] [address] Platelet mean volume (Bld) [Entitic vol] 7.3 fL Normal 6.4-10.8 [facility] Comment on above: Performed By: #### 1 0585883, 1414291, 3551792, 5443483, 5595864, 6750851 ####[facility] [address] [place] [address] Platelets (Bld) [#/Vol] 443.0 E9/L Normal 150.0-500.0 [facility] Comment on above: Performed By: #### 1 9828177, 5843324, 4344786, 3299789, 2416591, 3419362 ####[facility] [address] [place] [address] RBC (Bld) [#/Vol] 4.9 E12/L Normal 4.3-5.9 [facility] Comment on above: Performed By: #### 1 5793226, 6068992, 3533127, 5804500, 1269916, 5009470 ####[address] [address] WBC corrected for nucl RBC Auto (Bld) [#/Vol] 14.0 E9/L High 4.0-11.0 [facility] Comment on above: Performed By: #### 1 6565626, 1161908, 7611403, 0730292, 1595255, 1314938 ####[facility] [address] [place] [address] CTA Cheston 01-07-2023 CTA Chest Normal [facility] Capillary Glucose POCon 12-19 Glucose [Mass/Vol] 139 mg/dL High 55-99 [facility] Comment on above: Result Comment: Sandhya JOHNSTON Performed By: #### 2 59918808 ####[facility] [address] [place] [address] Glucose [Mass/Vol] 128 mg/dL High 55-99 [facility] Comment on above: Result Comment: Sandhya JOHNSTON Performed By: #### 2 80392319 ####[facility] [address] [place] [address] Glucose [Mass/Vol] 166 mg/dL High 55-99 [facility] Comment on above: Result Comment: Sandhya luo RN/MD Performed By: #### 2 60140514 ####[facility] [address] [place] [address] Glucose [Mass/Vol] 204 mg/dL High 55-99 [facility] Comment on above: Performed By: #### 2 52075051 ####[facility] [address] [place] [address] ED Clinical Summaryon 2022 ED Clinical Summary Normal [facility] ED Note-Nursingon 01-07-2023 ED Note-Nursing This nurse spoke nikko Rileyy form [employer] to let them know that this patient will be staying for admittance of continued care. Normal [facility] ED Note-Physicianon 01-08-20 ED Note-Physician Normal [facility] Comment on above: Result Comment: Elec tronically Signed By: Missy Urena PA-C\.br\Date and Time Signed: 01/06/23 23:42 EST\.br\Electronically Co-Signed By: Chaitanya Valdes DO\.br\Date and Time Co-Signed: 01/07/23 18:52 EST ED Patient Education Noteon 01-07-2023 ED Patient Education Note Normal [facility] ED Patient Summaryon 023 ED Patient Summary Normal [facility] Hep Func Panelon 01-07-2023 Bilirubin.indirect [Mass or moles/Vol] UTC Abnormal 0.1-0.9 [facility] Comment on above: Result Comment: Resu lt verified by Discern Rule. Performed result UTC (Unable to Calculate) was sent as an Alpha code due the inability to calculate a valid numeric value. Performed By: #### 1 9242423, 0753160, 5270810, 2694849, 1370186, 5468932 ####[facility] [address] [place] [address] Albumin [Mass/Vol] 3.6 g/dL Normal 3.3-5.0 [facility] Comment on above: Performed By: #### 1 2761380, 5514819, 9102894, 6053765, 1608525, 0270271 ####[facility] [address] [place] [address] Albumin/Globulin (S) [Mass conc ratio] 1.0 Low 1.1-2.2 [facility] Comment on above: Performed By: #### 1 7002467, 5213342, 5232152, 2528788, 8459416, 0283440 ####[facility] [address] [place] [address] ALP [Catalytic activity/Vol] 153 Int._Unit/L High 21-98 [facility] Comment on above: Performed By: #### 1 2933198, 4420712, 1804244, 7576486, 3017858, 6640532 ####[facility] [address] [place] [address] ALT No additional P-5'-P [Catalytic activity/Vol] 40 Int._Unit/L Normal 6-46 [facility] Comment on above: Performed By: #### 1 5327512, 8098746, 1994857, 2219993, 2436111, 4212190 ####[facility] [address] [place] [address] AST [Catalytic activity/Vol] 25 Int._Unit/L Normal 5-43 [facility] Comment on above: Performed By: #### 1 5119663, 4232361, 6872441, 7401139, 0675773, 3244940 ####[facility] [address] [place] [address] Bilirubin [Mass/Vol] 0.6 mg/dL Normal 0.0-1.1 [facility] Comment on above: Performed By: #### 1 8612172, 0129353, 3124136, 0346388, 7862307, 5274745 ####[facility] [address] [place] [address] Globulin (S) [Mass/Vol] 3.8 g/dL Normal 1.4-4.0 [facility] Comment on above: Performed By: #### 1 3760206, 1055353, 4149281, 9434871, 7231473, 4699970 ####[facility] [address] [place] [address] Protein [Mass/Vol] 7.4 g/dL Normal 6.0-7.8 [facility] Comment on above: Performed By: #### 1 3455234, 3646244, 8439525, 1244117, 3246893, 3284149 ####[facility] [address] [place] [address] Bilirubin.direct [Mass/Vol] mg/dL Normal 0.1-0.4 [facility] Comment on above: Performed By: #### 1 8185334, 8652166, 4163632, 8392818, 8542208, 4704097 ####[facility] [address] [place] [address] Interdisciplinary Note - Miguelito e Manageron 01-07-2023 Interdisciplinary Note - Production Cell Leader [facility] Comment on above: Result Comment: Elec tronically Signed By: Chanda Adames\.br\Date and Time Signed: 01/07/23 13:23 EST Magnesiumon 01-07-2023 Magnesium [Mass/Vol] 1.9 mg/dL Normal 1.3-2.4 [facility] Comment on above: Performed By: #### 1 6527367, 3384092, 3584121, 7597011, 0592203, 4461991 ####[facility] [address] [place] [address] Message from Medicareon 12-19 Message from Medicare [id number]# 1.00TIFF Normal [facility] Monitor Recordon 01-07-2023 Monitor Record [id number]# 1.00TIFF Normal [facility] Monitor Record [id number]# 1.00TIFF Normal [facility] Monitor Record [id number]# 1.00TIFF Normal [facility] Monitor Record [id number] 1 [id number]# 1.00TIFF Normal [facility] Progress Note-Physicianon Progress Note-Physician Normal [facility] Comment on above: Result Comment: Elec tronically Signed By: Marybel Sofia\.br\Date and Time Signed: 01/07/23 17:12 EST\.br\Electronically Co-Signed By: JALEEL VIVEROS, Michelle\.br\Date and Time Co-Signed: 01/07/23 19:16 EST RAD - Preliminary Cat Scan R eporton 01-07-2023 RAD - Preliminary Cat Scan Report [id number]# 1.00TIFF Normal [facility] Troponinon 01-07-2023 Troponin I.cardiac [Mass/Vol] 31.20 pg/mL High 10.10-27.10 [facility] Comment on above: Result Comment: The 95% CI (Confidence Interval) PPV (Positive Predictive Value) for myocardial infarction in females is 38 pg/mL, in males 51 pg/mL. The results should be used in conjunction with clinical conditions of myocardial infarction.(Access High Sensitivity Troponin I Instructions For Use, [employer], September 2017) Performed By: #### 1 6859214, 1901382, 1787887, 4693338, 6396126, 6973855 ####[facility] [address] [place] [address] Troponin 3 Hr.on 01-07-2023 Troponin I.cardiac [Mass/Vol] 34.60 pg/mL High 10.10-27.10 [facility] Comment on above: Result Comment: The 95% CI (Confidence Interval) PPV (Positive Predictive Value) for myocardial infarction in females is 38 pg/mL, in males 51 pg/mL. The results should be used in conjunction with clinical conditions of myocardial infarction.(Access High Sensitivity Troponin I Instructions For Use, [employer], September 2017) Performed By: #### 1 8455884 ####Newell Dorian [address] [address] Troponin 6 Hr.on 01-07-2023 Troponin I.cardiac [Mass/Vol] 33.90 pg/mL High 10.10-27.10 [facility] Comment on above: Result Comment: The 95% CI (Confidence Interval) PPV (Positive Predictive Value) for myocardial infarction in females is 38 pg/mL, in males 51 pg/mL. The results should be used in conjunction with clinical conditions of myocardial infarction.(Access High Sensitivity Troponin I Instructions For Use, [employer], September 2017) Performed By: #### 1 0455117 ####[address] [address] Troponin 9 Hr.on 01-07-2023 Troponin I.cardiac [Mass/Vol] 36.60 pg/mL High 10.10-27.10 [facility] Comment on above: Result Comment: The 95% CI (Confidence Interval) PPV (Positive Predictive Value) for myocardial infarction in females is 38 pg/mL, in males 51 pg/mL. The results should be used in conjunction with clinical conditions of myocardial infarction.(Access High Sensitivity Troponin I Instructions For Use, [employer], September 2017) Performed By: #### 1 2746807 ####[address] [address] UA With Cult Reflexon 2022 Bilirubin Ql (U) Negative Normal Negative [facility] Comment on above: Order Comment: Urina ry Catheter Insertion triggered Urinalysis With Culture Reflex order by discern. Performed By: #### 1 1483528 ####[address] [address] Clarity (U) CLEAR Normal Clear [facility] Comment on above: Order Comment: Urina ry Catheter Insertion triggered Urinalysis With Culture Reflex order by discern. Performed By: #### 1 7731120 ####[address] [address] Color (U) YELLOW Normal Yellow [facility] Comment on above: Order Comment: Urina ry Catheter Insertion triggered Urinalysis With Culture Reflex order by discern. Performed By: #### 1 4860773 ####[address] [place] [address] Epithelial cells.squamous LM.HPF (Urine sed) [#/Area] 0-2 Normal 0-2 [facility] Comment on above: Order Comment: Urina ry Catheter Insertion triggered Urinalysis With Culture Reflex order by discern. Performed By: #### 1 1189514 ####[facility] [address] [place] [address] Glucose Test strip (U) [Mass/Vol] TRACE Abnormal Negative [facility] Comment on above: Order Comment: Urina ry Catheter Insertion triggered Urinalysis With Culture Reflex order by discern. Performed By: #### 1 3880248 ####[address] [address] Hemoglobin Ql (U) 2+ Abnormal Negative [facility] Comment on above: Order Comment: Urina ry Catheter Insertion triggered Urinalysis With Culture Reflex order by discern. Performed By: #### 1 8865952 ####[facility] [address] [place] [address] Ketones (U) [Mass/Vol] 1+ Abnormal Negative [facility] Comment on above: Order Comment: Urina ry Catheter Insertion triggered Urinalysis With Culture Reflex order by discern. Performed By: #### 1 9819241 ####[facility] [address] [place] [address] Peck.plasma/Peck. RBC (Bld) [Mass ratio] 4-20 Normal 0-3 [facility] Comment on above: Order Comment: Urina ry Catheter Insertion triggered Urinalysis With Culture Reflex order by discern. Performed By: #### 1 9004002 ####[facility] [address] [place] [address] Nitrite Ql (U) Negative Normal Negative [facility] Comment on above: Order Comment: Urina ry Catheter Insertion triggered Urinalysis With Culture Reflex order by discern. Performed By: #### 1 8209947 ####[address] [address] pH (U) 6.0 [pH] Invalid Interpretation Code 5.0-9.0 [facility] Comment on above: Order Comment: Urina ry Catheter Insertion triggered Urinalysis With Culture Reflex order by discern. Performed By: #### 1 2429271 ####[address] [address] Protein (U) [Mass/Vol] 3+ Abnormal Negative [facility] Comment on above: Order Comment: Urina ry Catheter Insertion triggered Urinalysis With Culture Reflex order by discern. Performed By: #### 1 4220265 ####[place] [address] Specific gravity (U) [Rel density] 1.015 Invalid Interpretation Code 1.005-1.030 [facility] Comment on above: Order Comment: Urina ry Catheter Insertion triggered Urinalysis With Culture Reflex order by discern. Performed By: #### 1 1181367 ####[place] [address] Type of Urine collection method Meade Normal [facility] Comment on above: Order Comment: Urina ry Catheter Insertion triggered Urinalysis With Culture Reflex order by discern. Performed By: #### 1 4831793 ####[place] [address]57 Urobilinogen Qn (U) 0.2 {Rikki'U}/dL Normal 0.0-1.0 [facility] Comment on above: Order Comment: Urina ry Catheter Insertion triggered Urinalysis With Culture Reflex order by discern. Performed By: #### 1 0703378 ####[place] [address]8857 WBC Auto Ql (U) Negative Normal Negative [facility] Comment on above: Order Comment: Urina ry Catheter Insertion triggered Urinalysis With Culture Reflex order by discern. Performed By: #### 1 0963611 ####[place] [address]8857 WBC LM.HPF (Urine sed) [#/Area] 0-5 Normal 0-5 [facility] Comment on above: Order Comment: Urina ry Catheter Insertion triggered Urinalysis With Culture Reflex order by discern. Performed By: #### 1 4998294 ####[facility] [address] [place] [address] eGFRon 01-07-2023 GFR/1.73 sq M.predicted among non-blacks MDRD (S/P/Bld) [Vol rate/Area] 43 mL/min/1.73 m2 Low >=59 [facility] Comment on above: Order Comment: Order added by Discern Expert. Result Comment: Demolition Engineer garfield kidney disease could be indicated at eGFR's of less than 60 mL/min/1.73m2. Kidney failure is indicated at less than 15 mL/min/1.73m2. Performed By: #### 1 1015970, 0440427, 8691883, 1383378, 9152747, 6319440 ####[facility] [address] [place] [address] Auto Diffon 01-06-2023 Basophils/100 WBC (Bld) 0.4 % Normal 0.0-2.0 [facility] Comment on above: Order Comment: Order Added by Michael Expert. Performed By: #### 2 984829, 33836650, 2914043, 79186829, 8957814, 8084871, 6018590, 2499379 ####[facility] [address] [place] [address] Basophils/Leukocytes Auto (Bld) [Pure # fraction] 0.1 E9/L Normal 0.0-0.2 [facility] Comment on above: Order Comment: Order Added by Discern Expert. Performed By: #### 2 846496, 49611489, 5497979, 32438882, 8223773, 1487735, 2198847, 1567026 ####[facility] [address] [place] [address] Eosinophils/100 WBC (Bld) 0.1 % Normal 0.0-8.0 [facility] Comment on above: Order Comment: Order Added by Michael Expert. Performed By: #### 2 054171, 89192481, 6637617, 41755751, 0392664, 8050842, 7189112, 8342425 ####[address] [place] [address] Eosinophils/Leukocytes Auto (Bld) [Pure # fraction] 0.0 E9/L Normal 0.0-0.5 [facility] Comment on above: Order Comment: Order Added by Discern Expert. Performed By: #### 2 429763, 17227603, 1654949, 95027339, 8521952, 8819436, 0754071, 9859371 ####[address] [address] Lymphocytes/100 WBC (Bld) 13.4 % Low 14.0-50.0 [facility] Comment on above: Order Comment: Order Added by Discern Expert. Performed By: #### 2 760236, 35118656, 2599377, 52854341, 7903693, 6413464, 0427989, 0441005 ####[address] [address] Lymphocytes/Leukocytes Auto (Bld) [Pure # fraction] 2.2 E9/L Normal 1.0-4.0 [facility] Comment on above: Order Comment: Order Added by Discern Expert. Performed By: #### 2 831103, 71721003, 5363717, 05328949, 9978512, 4002116, 1916045, 7710056 ####[address] [address] Monocytes/100 WBC (Bld) 4.8 % Normal 4.0-14.0 [facility] Comment on above: Order Comment: Order Added by Discern Expert. Performed By: #### 2 939855, 45120138, 9105507, 94359668, 2001177, 3131908, 0027145, 0572234 ####[address] [address] Monocytes/Leukocytes Auto (Bld) [Pure # fraction] 0.8 E9/L Normal 0.2-1.0 [facility] Comment on above: Order Comment: Order Added by Discern Expert. Performed By: #### 2 610421, 85777838, 0864928, 41909845, 6668427, 8860581, 1205570, 3861145 ####[facility] [address] [place] [address] Neutrophils/100 WBC (Bld) 81.3 % High 36.0-75.0 [facility] Comment on above: Order Comment: Order Added by Discern Expert. Performed By: #### 2 221427, 24737299, 5648850, 70589187, 8579195, 3544012, 4201086, 6404539 ####[facility] [address] [place] [address] Neutrophils/Leukocytes Auto (Bld) [Pure # fraction] 13.1 E9/L High 2.0-7.5 [facility] Comment on above: Order Comment: Order Added by Discern Expert. Performed By: #### 2 600448, 60345083, 2588530, 17809069, 9281120, 1423277, 5030074, 2446791 ####[address] [address] BNPon 01-06-2023 Natriuretic peptide B (Bld) [Mass/Vol] 265 pg/mL High 5-80 [facility] Comment on above: Performed By: #### 1 3111000 ####[address] [address] Blood Gas Art, with Lytes, G becka, [place] 01-06-2023 a/A Ratio Art 81.10 % Normal >=0.80 [facility] Comment on above: Performed By: #### 4 32168111 ####[facility] [address] [place] [address] AaDO2 Art 21.1 mmHg High 5.0-15.0 [facility] Comment on above: Performed By: #### 4 55012140 ####[address] [place] [address] Allens Test Positive Normal [facility] Comment on above: Performed By: #### 4 11220169 ####[facility] [address] [place] [address] Base Excess Arterial -0.6 mmol/L Low >=2.8 [facility] Comment on above: Performed By: #### 4 06243827 ####[facility] [address] [place] [address] cCa2+ Art 4.67 mg/dL Normal 4.40-5.30 [facility] Comment on above: Performed By: #### 4 23164013 ####[address] [place] [address] cCl- Art 103.0 mmol/L Normal 101.0-111.0 [facility] Comment on above: Performed By: #### 4 97143122 ####[address] [place] [address] cGlu Art 202 mg/dL High 55-99 [facility] Comment on above: Performed By: #### 4 91376981 ####[address] [place] [address] cK+ Art 3.2 mmol/L Low 3.5-5.3 [facility] Comment on above: Performed By: #### 4 79386051 ####[address] [place] [address] cLac Art .9 mmol/L Normal .5-2.2 [facility] Comment on above: Performed By: #### 4 72163702 ####[facility] [address] [place] [address] policy services representative+ Art 138.0 mmol/L Normal 135.0-145.0 [facility] Comment on above: Performed By: #### 4 52515037 ####[facility] [address] [place] [address] Drawn by WMP Invalid Interpretation Code [facility] Comment on above: Performed By: #### 4 07128583 ####[address] [place] [address] FCOHb Art 1.1 % Low 1.5-4.9 [facility] Comment on above: Result Comment: Refe rence rangeNonsmoker <1.5%Smoker <5.0%Heavy Smoker <9.0% Performed By: #### 4 51820224 ####[facility] [address] [place] [address] FIO2 BG 21 Invalid Interpretation Code [facility] Comment on above: Performed By: #### 4 95055712 ####[facility] [address] [place] [address] FMetHb Art 0.2 % Normal 0.0-1.9 [facility] Comment on above: Performed By: #### 4 02747518 ####[facility] [address] [place] [address] FO2Hb Art 97.5 % Normal 92.0-100.0 [facility] Comment on above: Performed By: #### 4 23557297 ####[facility] [address] [place] [address] HCO3 (Bld) [Moles/Vol] 23.9 mmol/L Normal 22.0-26.0 [facility] Comment on above: Performed By: #### 4 42791773 ####[facility] [address] [place] [address] Hemoglobin (Bld) [Mass/Vol] 14.6 g/dL Normal 12.0-16.0 [facility] Comment on above: Performed By: #### 4 95841714 ####[facility] [address] [place] [address] Oxygen saturation in Blood 98.8 % Normal 95.0-100.0 [facility] Comment on above: Performed By: #### 4 73147937 ####[facility] [address] [place] [address] P CO2 Arterial 30.6 mmHg Low 35.0-45.0 [facility] Comment on above: Performed By: #### 4 49664733 ####[facility] [address] [place] [address] P O2 Arterial 90.7 mmHg Normal 80.0-100.0 [facility] Comment on above: Performed By: #### 4 26582114 ####[facility] [address] [place] [address] pH Arterial 7.467 High 7.350-7.450 [facility] Comment on above: Performed By: #### 4 49945167 ####[address] [address] Sample Site L Radial Normal [facility] Comment on above: Performed By: #### 4 84589168 ####[address] [address] Sample Type Arterial Draw Normal [facility] Comment on above: Performed By: #### 4 82173134 ####[address] [address] CBC w/ Auto Diffon 3 Erythrocyte distribution width (RBC) [Ratio] 13.9 % Normal 10.9-14.2 [facility] Comment on above: Performed By: #### 2 522668, 45474026, 6447604, 30564621, 8926689, 5553095, 9696182, 2950422 ####[address] [place] [address] Hematocrit (Bld) [Volume fraction] 42.8 % Normal 34.0-46.0 [facility] Comment on above: Performed By: #### 2 647732, 03356982, 6527905, 43124969, 9872594, 8484323, 1579659, 5114830 ####[facility] [address] [place] [address] Hemoglobin (Bld) [Mass/Vol] 14.4 g/dL Normal 12.0-16.0 [facility] Comment on above: Performed By: #### 2 075155, 64281749, 3119569, 21511372, 1722031, 1930347, 4868446, 4799243 ####[facility] [address] [place] [address] MCH (RBC) [Entitic mass] 29.9 pg Normal 27.0-34.0 [facility] Comment on above: Performed By: #### 2 946076, 17135062, 2763788, 40113755, 6721551, 1241499, 7166620, 0489718 ####[address] [address] MCHC (RBC) [Mass/Vol] 33.6 g/dL Normal 31.4-36.0 [facility] Comment on above: Performed By: #### 2 404881, 35838881, 5447949, 83006026, 0023304, 6329603, 8458718, 8113217 ####[address] [address] MCV (RBC) [Entitic vol] 88.9 fL Normal 80.0-100.0 [facility] Comment on above: Performed By: #### 2 226438, 90127640, 2731466, 69192265, 2288412, 3787618, 7345926, 2154711 ####[address] [address] Platelet mean volume (Bld) [Entitic vol] 6.8 fL Normal 6.4-10.8 [facility] Comment on above: Performed By: #### 2 038473, 70335582, 4704084, 27558557, 1954046, 5987982, 9109706, 2961474 ####[address] [address] Platelets (Bld) [#/Vol] 425.0 E9/L Normal 150.0-500.0 [facility] Comment on above: Performed By: #### 2 535572, 60447035, 9251101, 98479240, 4197793, 5053705, 8781564, 3499206 ####[address] [place] [address] RBC (Bld) [#/Vol] 4.8 E12/L Normal 4.3-5.9 [facility] Comment on above: Performed By: #### 2 128169, 40883005, 4970022, 98800465, 3496153, 8761878, 0997931, 8643666 ####[address] [address] WBC corrected for nucl RBC Auto (Bld) [#/Vol] 16.1 E9/L High 4.0-11.0 [facility] Comment on above: Result Comment: Slid e reviewed by BR. Performed By: #### 2 529112, 77414785, 0566440, 33596915, 9850431, 6297533, 9498521, 7683262 ####[address] [address] CMPon 01-06-2023 Albumin [Mass/Vol] 4.3 g/dL Normal 3.3-5.0 [facility] Comment on above: Performed By: #### 2 264543, 17730417, 1024720, 79704379, 7823222, 8366851, 1396802, 4442853 ####[address] [address] Albumin/Globulin (S) [Mass conc ratio] 0.9 Low 1.1-2.2 [facility] Comment on above: Performed By: #### 2 705588, 43782549, 4559242, 39318085, 3425186, 0740280, 4792154, 2747899 ####[address] [address] ALP [Catalytic activity/Vol] 188 Int._Unit/L High 21-98 [facility] Comment on above: Performed By: #### 2 792452, 63083640, 7577702, 07727438, 2869227, 1537871, 9059645, 2373257 ####[address] [place] [address] ALT No additional P-5'-P [Catalytic activity/Vol] 67 Int._Unit/L High 6-46 [facility] Comment on above: Performed By: #### 2 685551, 84994404, 0423344, 82117524, 7794956, 8476502, 2978351, 7113023 ####[facility] [address] [place] [address] AST [Catalytic activity/Vol] 63 Int._Unit/L High 5-43 [facility] Comment on above: Performed By: #### 2 329861, 83117106, 1091407, 49841727, 0352627, 6473925, 8903968, 9587080 ####[facility] [address] [place] [address] Bilirubin [Mass/Vol] 0.8 mg/dL Normal 0.0-1.1 [facility] Comment on above: Performed By: #### 2 383281, 53859123, 0274909, 38912117, 1576927, 8674028, 3955595, 2363776 ####[facility] [address] [place] [address] Creatinine [Mass/Vol] 1.3 mg/dL Normal 0.5-1.3 [facility] Comment on above: Performed By: #### 2 836523, 13729043, 4612657, 01048299, 6988172, 1765773, 0122679, 1584737 ####[facility] [address] [place] [address] Globulin (S) [Mass/Vol] 4.7 g/dL High 1.4-4.0 [facility] Comment on above: Performed By: #### 2 534785, 79551320, 3816532, 72791806, 5336252, 7658984, 7297170, 7859912 ####[facility] [address] [place] [address] Protein [Mass/Vol] 9.0 g/dL High 6.0-7.8 [facility] Comment on above: Performed By: #### 2 733157, 96966898, 8880126, 50842744, 7108893, 5161186, 1997169, 1740933 ####[facility] [address] [place] [address] Urea nitrogen [Mass/Vol] 30 mg/dL High 5-21 [facility] Comment on above: Performed By: #### 2 933310, 86225839, 8412415, 05137101, 9721838, 6688886, 9867898, 2579723 ####[facility] [address] [place] [address] Urea nitrogen/Creatinine [Mass ratio] 23 No Units High 10-20 [facility] Comment on above: Performed By: #### 2 984544, 99132800, 4493903, 25216817, 8252192, 7179776, 2721299, 1321566 ####[facility] [address] [place] [address] Anion gap [Moles/Vol] 18 mmol/L High 6-16 [facility] Comment on above: Performed By: #### 2 670402, 44284665, 8404535, 29479961, 0578219, 2023746, 1151798, 0710203 ####[facility] [address] [place] [address] Calcium [Mass/Vol] 10.1 mg/dL Normal 8.9-11.1 [facility] Comment on above: Performed By: #### 2 416972, 35639693, 2491351, 02873905, 2291722, 2281794, 2590950, 7149417 ####[facility] [address] [place] [address] Chloride [Moles/Vol] 97 mmol/L Low 101-111 [facility] Comment on above: Performed By: #### 2 360574, 57505185, 2621636, 25416853, 3046151, 1700035, 9628284, 2342348 ####[facility] [address] [place] [address] CO2 [Moles/Vol] 22 mmol/L Normal 21-31 [facility] Comment on above: Performed By: #### 2 980573, 25962083, 3333594, 69986623, 0231569, 4875930, 1232712, 5135895 ####[facility] [address] [place] [address] Glucose [Mass/Vol] 173 mg/dL Normal 55-199 [facility] Comment on above: Result Comment: If t his glucose result represents a fasting glucose, interpretation should refer to the following reference range: 55-99 mg/dL Performed By: #### 2 372982, 91493800, 1578970, 81823752, 0499142, 2942906, 9298626, 5636514 ####[facility] [address] [place] [address] Potassium [Moles/Vol] 3.5 mmol/L Normal 3.5-5.3 [facility] Comment on above: Performed By: #### 2 690718, 14765994, 8608602, 35135488, 6210556, 1658212, 5184826, 6050591 ####[facility] [address] [place] [address] Sodium [Moles/Vol] 133 mmol/L Low 135-145 [facility] Comment on above: Performed By: #### 2 890609, 15663461, 9396144, 73420264, 7211303, 7559588, 8074291, 3231038 ####[facility] [address] [place] [address] CT Abdomen/Pelvis w/ Contras ton 01-06-2023 CT Abdomen/Pelvis w/ Contrast Normal [facility] Capillary Glucose POCon 12-19 Glucose [Mass/Vol] 178 mg/dL High 55-99 [facility] Comment on above: Performed By: #### 2 84214420 ####[facility] [address] [place] [address] Glucose [Mass/Vol] 179 mg/dL High 55-99 [facility] Comment on above: Result Comment: Sandhya JOHNSTON Performed By: #### 2 27329246 ####[facility] [address] [place] [address] Glucose [Mass/Vol] 161 mg/dL High 55-99 [facility] Comment on above: Result Comment: Sandhya JOHNSTON Performed By: #### 2 09689978 ####[facility] [address] [place] [address] Consent for Treatmenton 12-19 Consent for Treatment [id number] 110 [id number]# 1.00TIFF Normal [facility] Consent for Treatment [id number] 110 [id number]# 1.00TIFF Normal [facility] D-Dimeron 01-06-2023 Fibrin D-dimer FEU (PPP) [Mass/Vol] 2680 [id number] Abnormal 215-500 [facility] Comment on above: Result Comment: Resu lts [...] skin infectionsLiver cirrhosisPregnancy Performed By: #### 2 144141, 2366968, 25797730, 12541874 ####[facility] [address] [place] [address] Free T4on 01-06-2023 Free T4 [Mass/Vol] 1.23 ng/dL Normal 0.58-1.64 [facility] Comment on above: Order Comment: Free T4 added by Discern Rule due to a TSH result of <0.34 or >5.60. Performed By: #### 2 925050, 1900526, 04904372, 04476342 ####[facility] [address] [place] [address] Lactic Acidon 01-06-2023 Lactate [Mass/Vol] 1.6 mmol/L Normal 0.5-2.2 [facility] Comment on above: Performed By: #### 2 923245, 22655032, 8602593, 11319662, 7164899, 6095441, 7316547, 8161353 ####[facility] [address] [place] [address] Lipase Levelon 01-06-2023 Lipase [Catalytic activity/Vol] 48 U/L Normal 13-58 [facility] Comment on above: Performed By: #### 2 517345, 99781004, 3704389, 32254365, 7194966, 9969394, 5691921, 8871716 ####[facility] [address] [place] [address] Magnesiumon 01-06-2023 Magnesium [Mass/Vol] 2.0 mg/dL Normal 1.3-2.4 [facility] Comment on above: Performed By: #### 2 065631, 00165593, 3686346, 39422073, 8927283, 0195086, 2215320, 7237163 ####[facility] [address] [place] [address] Medication Listson Medication Lists [id number] 0 [id number]# 1.00TIFF Normal [facility] Monitor Recordon 01-06-2023 Monitor Record [id number] 1 [id number]# 1.00TIFF Normal [facility] Monitor Record [id number] 1 [id number]# 1.00TIFF Normal [facility] Monitor Record [id number] 1 [id number]# 1.00TIFF Normal [facility] Monitor Record [id number] 1 [id number]# 1.00TIFF Normal [facility] Monitor Record [id number] 1 [id number]# 1.00TIFF Normal [facility] Monitor Record [id number] 1 [id number]# 1.00TIFF Normal [facility] Shelter Recordson 01-06 Shelter Records [id number] 10 [id number]# 1.00TIFF Normal [facility] PT & PTTon 01-06-2023 aPTT Coag (PPP) [Time] 22.3 second(s) Low 25.1-36.5 [facility] Comment on above: Result Comment: Para meter [...] the same coagulation reagent and instrumentation as [facility]. Currently there are no coagulation studies available worldwide for children to 14 days, and no normal ranges. Heparin therapeutic range (represented by Anti-Factor Xa activity of 0.2 - 0.4 U/mL) corresponds to PTT of 56.6 - 109.0 sec. Performed By: #### 2 007014, 7477184, 49976984, 85782795 ####[facility] [address] [place] [address] INR Coag (PPP) [Relative time] 1.2 {INR} Invalid Interpretation Code [facility] Comment on above: Result Comment: INR results are specifically intended to assess patients stabilized on long-term Anticoagulation therapy suggested INR?s ?Less Intensive Anticoagulation? 2.0 ? 3.0Conventional Range 3.0 ? 4.5 Performed By: #### 2 834409, 7325284, 17587465, 88842466 ####[facility] [address] [place] [address] PT Coag (PPP) [Time] 12.9 second(s) High 9.4-12.5 [facility] Comment on above: Result Comment: 15 d [...] the same coagulation reagent and instrumentation as [facility]. Currently there are no coagulation studies available worldwide for children to 14 days, and no normal ranges. Performed By: #### 2 943918, 6164935, 72617600, 52726812 ####[facility] [address] [place] [address] Pre-Arrival Noteon 3 Pre-Arrival Note Normal [facility] Rapid COVID Antigen ([facility])on 01-06-2023 Rapid COV Int NEG Ctl Pass Normal [facility] Comment on above: Performed By: #### 2 983368826 ####[facility] [address] [place] [address] Rapid COV Int POS Ctl Pass Normal [facility] Comment on above: Performed By: #### 2 214375884 ####[facility] [address] [place] [address] SARS-CoV+SARS-CoV-2 (COVID-19) Ag IA.rapid Ql (Resp) Not detected Normal Not Detected [facility] Comment on above: Result Comment: The [email or web address] Veritor? System for Rapid Detection of SARS-CoV-2 [...] or revoked sooner. Performed By: #### 2 003821625 ####[facility] [address] [place] [address] TSH With T4fr Reflexon 01-06 TSH Qn 5.74 m[IU]/L High 0.34-5.60 [facility] Comment on above: Performed By: #### 2 334677, 2456136, 92063452, 72861131 ####[facility] [address] [place] [address] Troponin 0 Hr.on 01-06-2023 Troponin I.cardiac [Mass/Vol] 13.80 pg/mL Normal 10.10-27.10 [facility] Comment on above: Result Comment: The 95% CI (Confidence Interval) PPV (Positive Predictive Value) for myocardial infarction in females is 38 pg/mL, in males 51 pg/mL. The results should be used in conjunction with clinical conditions of myocardial infarction.(Access High Sensitivity Troponin I Instructions For Use, [employer], September 2017) Performed By: #### 2 825272, 09957569, 5840411, 82752851, 5427288, 0415638, 1755797, 3282045 ####[facility] [address] [place] [address] UA With Cult Reflexon 2022 Bacteria LM Ql (Urine sed) TRACE Normal Trace [facility] Comment on above: Performed By: #### 1 2364501, 9894836 ####[address] [address] Bilirubin Ql (U) Negative Normal Negative [facility] Comment on above: Performed By: #### 1 3316531, 4473978 ####[facility] [address] [place] [address] Clarity (U) SL CLOUDY Abnormal Clear [facility] Comment on above: Performed By: #### 1 1091712, 4237096 ####[address] [address] Color (U) YELLOW Normal Yellow [facility] Comment on above: Performed By: #### 1 8272917, 3374443 ####[address] [address] Crystals LM Ql (Urine sed) Present Normal [facility] Comment on above: Performed By: #### 1 8300085, 3273749 ####[address] [address] Epithelial cells.squamous LM.HPF (Urine sed) [#/Area] 0-2 Normal 0-2 [facility] Comment on above: Performed By: #### 1 3202950, 2097717 ####[address] [address] Glucose Test strip (U) [Mass/Vol] 1+ Abnormal Negative [facility] Comment on above: Performed By: #### 1 1774804, 9306708 ####[address] [address] Hemoglobin Ql (U) 2+ Abnormal Negative [facility] Comment on above: Performed By: #### 1 7078365, 4258002 ####[address] [address] Ketones (U) [Mass/Vol] TRACE Abnormal Negative [facility] Comment on above: Performed By: #### 1 4213838, 4781208 ####[address] [address] Peck.plasma/Peck. RBC (Bld) [Mass ratio] 4-20 Normal 0-3 [facility] Comment on above: Performed By: #### 1 6536280, 4516294 ####[facility] [address] [place] [address] Mucus Ql (Urine sed) TRACE Normal Fish er [facility] Comment on above: Performed By: #### 1 3428009, 8787577 ####[address] [address] Nitrite Ql (U) Negative Normal Negative [facility] Comment on above: Performed By: #### 1 0568265, 5817522 ####[facility] [address] [place] [address] pH (U) 7.0 [pH] Invalid Interpretation Code 5.0-9.0 [facility] Comment on above: Performed By: #### 1 3311187, 3093317 ####[place] [address] Protein (U) [Mass/Vol] 2+ Abnormal Negative [facility] Comment on above: Performed By: #### 1 2810607, 2895790 ####[place] [address] Specific gravity (U) [Rel density] 1.015 Invalid Interpretation Code 1.005-1.030 [facility] Comment on above: Performed By: #### 1 0146822, 4992969 ####[place] [address] Type of Urine collection method Clean Catch Normal [facility] Comment on above: Performed By: #### 1 0305194, 7917380 ####[place] [address] Urobilinogen Qn (U) 0.2 {Rikki'U}/dL Normal 0.0-1.0 [facility] Comment on above: Performed By: #### 1 6871682, 5673146 ####[place] [address] WBC Auto Ql (U) TRACE Abnormal Negative [facility] Comment on above: Performed By: #### 1 6872940, 6703630 ####[place] [address] WBC LM.HPF (Urine sed) [#/Area] 6-15 Abnormal 0-5 [facility] Comment on above: Performed By: #### 1 1286227, 1168072 ####[place] [address] XR Chest Single Viewon 01-06 XR Chest Single View Normal Fish er [facility] eGFRon 01-06-2023 GFR/1.73 sq M.predicted among non-blacks MDRD (S/P/Bld) [Vol rate/Area] 47 mL/min/1.73 m2 Low >=59 [facility] Comment on above: Order Comment: Order added by Discern Expert. Result Comment: Demolition Engineer garfield kidney disease could be indicated at eGFR's of less than 60 mL/min/1.73m2. Kidney failure is indicated at less than 15 mL/min/1.73m2. Performed By: #### 2 087979, 20949872, 6753732, 82700981, 3242827, 7451769, 8868778, 5259639 ####[address] [address] Auto Diffon 01-05-2023 Basophils/100 WBC (Bld) 0.3 % Normal 0.0-2.0 [facility] Comment on above: Order Comment: Order Added by Michael Expert. Performed By: #### 2 148447, 4946678 ####[address] [address] Basophils/Leukocytes Auto (Bld) [Pure # fraction] 0.0 E9/L Normal 0.0-0.2 [facility] Comment on above: Order Comment: Order Added by Michael Expert. Performed By: #### 2 095175, 5988092 ####[address] [address] Eosinophils/100 WBC (Bld) 0.3 % Normal 0.0-8.0 [facility] Comment on above: Order Comment: Order Added by Michael Expert. Performed By: #### 2 172450, 8079405 ####[address] [address] Eosinophils/Leukocytes Auto (Bld) [Pure # fraction] 0.0 E9/L Normal 0.0-0.5 [facility] Comment on above: Order Comment: Order Added by Michael Expert. Performed By: #### 2 630762, 4696973 ####[address] [address] Lymphocytes/100 WBC (Bld) 9.0 % Low 14.0-50.0 [facility] Comment on above: Order Comment: Order Added by Discern Expert. Performed By: #### 2 162332, 9941279 ####[address] [place] [address] Lymphocytes/Leukocytes Auto (Bld) [Pure # fraction] 1.5 E9/L Normal 1.0-4.0 [facility] Comment on above: Order Comment: Order Added by Discern Expert. Performed By: #### 2 435370, 5817783 ####[address] [address] Monocytes/100 WBC (Bld) 3.4 % Low 4.0-14.0 [facility] Comment on above: Order Comment: Order Added by Discern Expert. Performed By: #### 2 886333, 1427252 ####[address] [address] Monocytes/Leukocytes Auto (Bld) [Pure # fraction] 0.6 E9/L Normal 0.2-1.0 [facility] Comment on above: Order Comment: Order Added by Discern Expert. Performed By: #### 2 770991, 6306453 ####[address] [address] Neutrophils/100 WBC (Bld) 87.0 % High 36.0-75.0 [facility] Comment on above: Order Comment: Order Added by Michael Expert. Performed By: #### 2 693315, 4156068 ####[address] [address] Neutrophils/Leukocytes Auto (Bld) [Pure # fraction] 14.3 E9/L High 2.0-7.5 [facility] Comment on above: Order Comment: Order Added by Michael Expert. Performed By: #### 2 006687, 4405111 ####[address] [place] [address] BMPon 01-05-2023 Anion gap [Moles/Vol] 16 mmol/L Normal 6-16 [facility] Comment on above: Performed By: #### 1 1418272, 3070004, 2713676, 08104561, 60108807, 0962861, 2996685 ####[facility] [address] [place] [address] Calcium [Mass/Vol] 9.8 mg/dL Normal 8.9-11.1 [facility] Comment on above: Performed By: #### 1 2928889, 1785158, 0424190, 72354636, 07968593, 1977147, 3830149 ####[facility] [address] [place] [address] Chloride [Moles/Vol] 102 mmol/L Normal 101-111 [facility] Comment on above: Performed By: #### 1 7099416, 1615946, 8201096, 15245486, 49788388, 6862277, 2375340 ####[facility] [address] [place] [address] CO2 [Moles/Vol] 21 mmol/L Normal 21-31 [facility] Comment on above: Performed By: #### 1 8144830, 0576562, 9315979, 44000187, 85057176, 8817877, 1625936 ####[facility] [address] [place] [address] Creatinine [Mass/Vol] 1.4 mg/dL High 0.5-1.3 [facility] Comment on above: Performed By: #### 1 9919258, 2207562, 8436847, 13513604, 30975336, 1238916, 8418709 ####[facility] [address] [place] [address] Glucose [Mass/Vol] 243 mg/dL High 55-199 [facility] Comment on above: Result Comment: If t his glucose result represents a fasting glucose, interpretation should refer to the following reference range: 55-99 mg/dL Performed By: #### 1 0198036, 9950271, 4215241, 83069664, 53764999, 1364394, 0486653 ####[facility] [address] [place] [address] Potassium [Moles/Vol] 3.6 mmol/L Normal 3.5-5.3 [facility] Comment on above: Performed By: #### 1 3189938, 3645440, 1329880, 60690355, 82017893, 0509440, 5271999 ####[facility] [address] [place] [address] Sodium [Moles/Vol] 135 mmol/L Normal 135-145 [facility] Comment on above: Performed By: #### 1 6506910, 0303719, 0058826, 30718814, 06962933, 8553360, 4128342 ####[facility] [address] [place] [address] Urea nitrogen [Mass/Vol] 31 mg/dL High 5-21 [facility] Comment on above: Performed By: #### 1 8928468, 2436466, 6020357, 73716253, 21808678, 2954001, 0360574 ####[facility] [address] [place] [address] Urea nitrogen/Creatinine [Mass ratio] 22 No Units High 10-20 [facility] Comment on above: Performed By: #### 1 3083743, 2176218, 2017187, 85907426, 70868478, 0148012, 1766958 ####[facility] [address] [place] [address] CBC w/ Auto Diffon 3 Erythrocyte distribution width (RBC) [Ratio] 13.8 % Normal 10.9-14.2 [facility] Comment on above: Performed By: #### 2 414378, 7419903 ####[facility] [address] [place] [address] Hematocrit (Bld) [Volume fraction] 40.6 % Normal 34.0-46.0 [facility] Comment on above: Performed By: #### 2 394112, 4328885 ####[facility] [address] [place] [address] Hemoglobin (Bld) [Mass/Vol] 13.5 g/dL Normal 12.0-16.0 [facility] Comment on above: Performed By: #### 2 959141, 0323696 ####[address] [address] MCH (RBC) [Entitic mass] 29.8 pg Normal 27.0-34.0 [facility] Comment on above: Performed By: #### 2 329810, 4504780 ####[address] [address] MCHC (RBC) [Mass/Vol] 33.3 g/dL Normal 31.4-36.0 [facility] Comment on above: Performed By: #### 2 629211, 8056240 ####[address] [address] MCV (RBC) [Entitic vol] 89.5 fL Normal 80.0-100.0 [facility] Comment on above: Performed By: #### 2 074030, 7966923 ####[address] [address] Platelet mean volume (Bld) [Entitic vol] 7.1 fL Normal 6.4-10.8 [facility] Comment on above: Performed By: #### 2 160912, 7271756 ####[address] [address] Platelets (Bld) [#/Vol] 382.0 E9/L Normal 150.0-500.0 [facility] Comment on above: Performed By: #### 2 516019, 2077785 ####[address] [address] RBC (Bld) [#/Vol] 4.5 E12/L Normal 4.3-5.9 [facility] Comment on above: Performed By: #### 2 116361, 1862940 ####[address] [address] WBC corrected for nucl RBC Auto (Bld) [#/Vol] 16.4 E9/L High 4.0-11.0 [facility] Comment on above: Performed By: #### 2 866760, 0158000 ####[facility] [address] [place] [address] [place] Abdomen/Pelvis w/ Contras ton 01-05-2023 CT Abdomen/Pelvis w/ Contrast Normal [facility] Consent for Treatmenton 12-18 Consent for Treatment [id number] 110 [id number]# 1.00TIFF Normal [facility] Discharge Instructionson Discharge Instructions [id number]#1 .00TIFF Normal [facility] ED Clinical Summaryon 2022 ED [facility] ED Note-Physicianon 01-06-20 ED Note-Physician Normal [facility] Comment on above: Result Comment: Elec tronically Signed By: Joanne Templeton DO\.br\Date and Time Signed: 01/05/23 19:29 EST ED Patient Education Noteon 01-05-2023 ED Patient Education Note Normal [facility] ED Patient Summaryon 023 ED Patient Summary Normal [facility] EMS Documentationon 01-06-20 EMS Documentation Please click on link to see report Normal [facility] Comment on above: Result Comment: Miss ing Attachment - attachment exceeds size limitation [id number] Can be viewed in source system Formson 01-05-2023 Forms [id number]# 1.00TIFF Normal [facility] Hep Func Panelon 01-05-2023 Bilirubin.indirect [Mass or moles/Vol] UTC Abnormal 0.1-0.9 [facility] Comment on above: Result Comment: Resu lt verified by Discern Rule. Performed result UTC (Unable to Calculate) was sent as an Alpha code due the inability to calculate a valid numeric value. Performed By: #### 1 0555354, 2165333, 0101403, 02839057, 00923527, 4793382, 1874376 ####[facility] [address] [place] [address] Albumin [Mass/Vol] 4.0 g/dL Normal 3.3-5.0 [facility] Comment on above: Performed By: #### 1 8471888, 0172371, 7933117, 75559069, 80660156, 0616588, 6600631 ####[facility] [address] [place] [address] Albumin/Globulin (S) [Mass conc ratio] 0.9 Low 1.1-2.2 [facility] Comment on above: Performed By: #### 1 4999664, 3922051, 7570958, 51600906, 79952417, 1369671, 2866842 ####[facility] [address] [place] [address] ALP [Catalytic activity/Vol] 126 Int._Unit/L High 21-98 [facility] Comment on above: Performed By: #### 1 4636398, 0957895, 8123703, 09321056, 21048864, 0294597, 7430780 ####[facility] [address] [place] [address] ALT No additional P-5'-P [Catalytic activity/Vol] 25 Int._Unit/L Normal 6-46 [facility] Comment on above: Performed By: #### 1 0911976, 3479067, 1597713, 32649362, 37851373, 7551216, 0673445 ####[facility] [address] [place] [address] AST [Catalytic activity/Vol] 24 Int._Unit/L Normal 5-43 [facility] Comment on above: Performed By: #### 1 1991750, 4192998, 8206965, 08670380, 30115228, 1184684, 8125700 ####[facility] [address] [place] [address] Bilirubin [Mass/Vol] 0.6 mg/dL Normal 0.0-1.1 [facility] Comment on above: Performed By: #### 1 8000005, 4493071, 5262526, 01266130, 12122005, 6284429, 2096513 ####[facility] [address] [place] [address] Globulin (S) [Mass/Vol] 4.3 g/dL High 1.4-4.0 [facility] Comment on above: Performed By: #### 1 0735071, 5524912, 6801756, 80734459, 47952546, 8554800, 2272334 ####[facility] [address] [place] [address] Protein [Mass/Vol] 8.3 g/dL High 6.0-7.8 [facility] Comment on above: Performed By: #### 1 2242283, 6102637, 8524738, 40884902, 15646383, 0763103, 8473349 ####[facility] [address] [place] [address] Bilirubin.direct [Mass/Vol] mg/dL Normal 0.1-0.4 [facility] Comment on above: Performed By: #### 1 1554993, 9304646, 7368453, 82871481, 87594995, 9597309, 8829647 ####[facility] [address] [place] [address] Lactic Acidon 01-05-2023 Lactate [Mass/Vol] 1.6 mmol/L Normal 0.5-2.2 [facility] Comment on above: Performed By: #### 1 0242747, 6186876, 4212426, 37896837, 42536692, 2410876, 3520470 ####[facility] [address] [place] [address] Lipase Levelon 01-05-2023 Lipase [Catalytic activity/Vol] 30 U/L Normal 13-58 [facility] Comment on above: Performed By: #### 1 7780569, 0365893, 2165304, 38847267, 90487487, 9293205, 5616986 ####[facility] [address] [place] [address] Monitor Recordon 01-05-2023 Monitor Record [id number]# 1.00TIFF Normal [facility] PT & PTTon 01-05-2023 aPTT Coag (PPP) [Time] 42.6 second(s) High 25.1-36.5 [facility] Comment on above: Result Comment: Para meter [...] the same coagulation reagent and instrumentation as [facility]. Currently there are no coagulation studies available worldwide for children to 14 days, and no normal ranges. Heparin therapeutic range (represented by Anti-Factor Xa activity of 0.2 - 0.4 U/mL) corresponds to PTT of 56.6 - 109.0 sec. Performed By: #### 1 0095059, 2129125, 1100481, 20784316, 10416925, 9915607, 8932971 ####[facility] [address] [place] [address] INR Coag (PPP) [Relative time] 1.2 {INR} Invalid Interpretation Code [facility] Comment on above: Result Comment: INR results are specifically intended to assess patients stabilized on long-term Anticoagulation therapy suggested INR?s ?Less Intensive Anticoagulation? 2.0 ? 3.0Conventional Range 3.0 ? 4.5 Performed By: #### 1 5260958, 4732392, 5104562, 30053225, 98203952, 6332032, 9294469 ####[facility] [address] [place] [address] PT Coag (PPP) [Time] 13.4 second(s) High 9.4-12.5 [facility] Comment on above: Result Comment: 15 d [...] the same coagulation reagent and instrumentation as [facility]. Currently there are no coagulation studies available worldwide for children to 14 days, and no normal ranges. Performed By: #### 1 6607766, 1617630, 0218670, 17425115, 68019971, 3836403, 2835764 ####[facility] [address] [place] [address] Pre-Arrival Noteon 3 Pre-Arrival Note Normal [facility] Transfer Documentson 023 Transfer Documents [id number]#1 .00TIFF Normal [facility] Troponin 0 Hr.on 01-05-2023 Troponin I.cardiac [Mass/Vol] 13.30 pg/mL Normal 10.10-27.10 [facility] Comment on above: Result Comment: The 95% CI (Confidence Interval) PPV (Positive Predictive Value) for myocardial infarction in females is 38 pg/mL, in males 51 pg/mL. The results should be used in conjunction with clinical conditions of myocardial infarction.(Access High Sensitivity Troponin I Instructions For Use, Jon Justine, September 2017) Performed By: #### 1 1733546, 7110758, 3665464, 34479075, 39923321, 2803117, 2325332 ####[facility] [address] [place] [address] UA With Cult Reflexon 2022 Bacteria LM Ql (Urine sed) TRACE Normal Trace [facility] Comment on above: Performed By: #### 1 8177945 ####[facility] [address] [place] [address] Bilirubin Ql (U) Negative Normal Negative [facility] Comment on above: Performed By: #### 1 4914054 ####[address] [address] Clarity (U) CLEAR Normal Clear [facility] Comment on above: Performed By: #### 1 1047161 ####[address] [address] Color (U) YELLOW Normal Yellow [facility] Comment on above: Performed By: #### 1 6751374 ####[address] [address] Epithelial cells.squamous LM.HPF (Urine sed) [#/Area] 0-2 Normal 0-2 [facility] Comment on above: Performed By: #### 1 8897074 ####[facility] [address] [place] [address] Glucose Test strip (U) [Mass/Vol] 2+ Abnormal Negative [facility] Comment on above: Performed By: #### 1 5690685 ####[facility] [address] [place] [address] Hemoglobin Ql (U) 1+ Abnormal Negative [facility] Comment on above: Performed By: #### 1 9760697 ####[facility] [address] [place] [address] Ketones (U) [Mass/Vol] 1+ Abnormal Negative [facility] Comment on above: Performed By: #### 1 5240636 ####[facility] [address] [place] [address] Peck.plasma/Peck. RBC (Bld) [Mass ratio] 4-20 Normal 0-3 [facility] Comment on above: Performed By: #### 1 7796290 ####[facility] [address] [place] [address] Mucus Ql (Urine sed) TRACE Normal [facility] Comment on above: Performed By: #### 1 2453121 ####[address] [address] Nitrite Ql (U) Negative Normal Negative [facility] Comment on above: Performed By: #### 1 6167872 ####[address] [address] pH (U) 6.5 [pH] Invalid Interpretation Code 5.0-9.0 [facility] Comment on above: Performed By: #### 1 6249752 ####[address] [address] Protein (U) [Mass/Vol] 3+ Abnormal Negative [facility] Comment on above: Performed By: #### 1 5733377 ####[address] [address] Specific gravity (U) [Rel density] 1.025 Invalid Interpretation Code 1.005-1.030 [facility] Comment on above: Performed By: #### 1 3986434 ####[address] [address] Type of Urine collection method Clean Catch Normal [facility] Comment on above: Performed By: #### 1 5856628 ####[address] [address] Urobilinogen Qn (U) 0.2 {Rikki'U}/dL Normal 0.0-1.0 [facility] Comment on above: Performed By: #### 1 6761360 ####[address] [address] WBC Auto Ql (U) Negative Normal Negative [facility] Comment on above: Performed By: #### 1 4658825 ####[address] [address] WBC LM.HPF (Urine sed) [#/Area] 0-5 Normal 0-5 [facility] Comment on above: Performed By: #### 1 1717918 ####[facility] [address] [place] [address] XR Chest Single Viewon 01-05 XR Chest Single View Normal Fish er [facility] eGFRon 01-05-2023 GFR/1.73 sq M.predicted among non-blacks MDRD (S/P/Bld) [Vol rate/Area] 43 mL/min/1.73 m2 Low >=59 [facility] Comment on above: Order Comment: Order added by Discern Expert. Result Comment: Demolition Engineer garfield kidney disease could be indicated at eGFR's of less than 60 mL/min/1.73m2. Kidney failure is indicated at less than 15 mL/min/1.73m2. Performed By: #### 1 4200642, 9513949, 9964392, 16354325, 37184283, 6916205, 0719325 ####[facility] [address] [place] [address] Auto Diffon 01-04-2023 Basophils/100 WBC (Bld) 0.1 % Normal 0.0-2.0 [facility] Comment on above: Order Comment: Order Added by Discern Expert. Performed By: #### 2 416788, 07924937, 0655058, 3763961 ####[address] [place] [address] Basophils/Leukocytes Auto (Bld) [Pure # fraction] 0.0 E9/L Normal 0.0-0.2 [facility] Comment on above: Order Comment: Order Added by Discern Expert. Performed By: #### 2 114452, 59962612, 8174893, 4221294 ####[address] [place] [address] Eosinophils/100 WBC (Bld) 0.0 % Normal 0.0-8.0 [facility] Comment on above: Order Comment: Order Added by Discern Expert. Performed By: #### 2 747703, 49223687, 3492245, 9384601 ####[facility] [address] [place] [address] Eosinophils/Leukocytes Auto (Bld) [Pure # fraction] 0.0 E9/L Normal 0.0-0.5 [facility] Comment on above: Order Comment: Order Added by Discern Expert. Performed By: #### 2 444735, 90792170, 3321341, 0638276 ####[address] [address] Lymphocytes/100 WBC (Bld) 7.6 % Low 14.0-50.0 [facility] Comment on above: Order Comment: Order Added by Discern Expert. Performed By: #### 2 693101, 68810639, 9539207, 9354292 ####[address] [address] Lymphocytes/Leukocytes Auto (Bld) [Pure # fraction] 1.0 E9/L Normal 1.0-4.0 [facility] Comment on above: Order Comment: Order Added by Discern Expert. Performed By: #### 2 691957, 95361863, 4675264, 8815898 ####[address] [address] Monocytes/100 WBC (Bld) 2.7 % Low 4.0-14.0 [facility] Comment on above: Order Comment: Order Added by Discern Expert. Performed By: #### 2 097840, 02536322, 3207562, 3733633 ####[address] [address] Monocytes/Leukocytes Auto (Bld) [Pure # fraction] 0.4 E9/L Normal 0.2-1.0 [facility] Comment on above: Order Comment: Order Added by Discern Expert. Performed By: #### 2 354657, 05077587, 0892506, 1368834 ####[address] [place] [address] Neutrophils/100 WBC (Bld) 89.6 % High 36.0-75.0 [facility] Comment on above: Order Comment: Order Added by Discern Expert. Performed By: #### 2 323471, 29639883, 7662920, 6987701 ####[address] [place] [address] Neutrophils/Leukocytes Auto (Bld) [Pure # fraction] 11.8 E9/L High 2.0-7.5 [facility] Comment on above: Order Comment: Order Added by Discern Expert. Performed By: #### 2 489070, 69666919, 5231988, 7792849 ####[address] [address] CBC w/ Auto Diffon Erythrocyte distribution width (RBC) [Ratio] 13.8 % Normal 10.9-14.2 [facility] Comment on above: Performed By: #### 2 739838, 52262641, 5896751, 0417981 ####[address] [address] Hematocrit (Bld) [Volume fraction] 41.9 % Normal 34.0-46.0 [facility] Comment on above: Performed By: #### 2 762870, 21681221, 8759045, 5076425 ####[address] [address] Hemoglobin (Bld) [Mass/Vol] 13.9 g/dL Normal 12.0-16.0 [facility] Comment on above: Performed By: #### 2 937975, 94654883, 3287500, 6299791 ####[facility] [address] [place] [address] MCH (RBC) [Entitic mass] 30.1 pg Normal 27.0-34.0 [facility] Comment on above: Performed By: #### 2 385242, 16250608, 4765638, 0626346 ####[facility] [address] [place] [address] MCHC (RBC) [Mass/Vol] 33.2 g/dL Normal 31.4-36.0 [facility] Comment on above: Performed By: #### 2 423866, 59677730, 6855037, 0876514 ####[address] [place] [address] MCV (RBC) [Entitic vol] 90.7 fL Normal 80.0-100.0 [facility] Comment on above: Performed By: #### 2 638572, 89599180, 6663660, 4353532 ####[facility] [address] [place] [address] Platelet mean volume (Bld) [Entitic vol] 7.2 fL Normal 6.4-10.8 [facility] Comment on above: Performed By: #### 2 188844, 24170887, 0065128, 2897350 ####[address] [address] Platelets (Bld) [#/Vol] 395.0 E9/L Normal 150.0-500.0 [facility] Comment on above: Performed By: #### 2 590546, 45527910, 5028099, 2856776 ####[address] [address] RBC (Bld) [#/Vol] 4.6 E12/L Normal 4.3-5.9 [facility] Comment on above: Performed By: #### 2 707275, 32535426, 4285641, 3368485 ####[address] [address] WBC corrected for nucl RBC Auto (Bld) [#/Vol] 13.2 E9/L High 4.0-11.0 [facility] Comment on above: Performed By: #### 2 865092, 23912917, 3424698, 2332924 ####[address] [address] CMPon 01-04-2023 Albumin [Mass/Vol] 4.3 g/dL Normal 3.3-5.0 [facility] Comment on above: Performed By: #### 2 839328, 85277611, 3073109, 7529017 ####[address] [place] [address] Albumin/Globulin (S) [Mass conc ratio] 1.0 Low 1.1-2.2 [facility] Comment on above: Performed By: #### 2 116515, 70520585, 5635935, 3154746 ####[address] [address] ALP [Catalytic activity/Vol] 148 Int._Unit/L High 21-98 [facility] Comment on above: Performed By: #### 2 858508, 07204079, 5665747, 4840301 ####[address] [address] ALT No additional P-5'-P [Catalytic activity/Vol] 33 Int._Unit/L Normal 6-46 [facility] Comment on above: Performed By: #### 2 031469, 32972218, 0178855, 7272304 ####[facility] [address] [place] [address] Anion gap [Moles/Vol] 16 mmol/L Normal 6-16 [facility] Comment on above: Performed By: #### 2 377669, 21145441, 3358246, 7482601 ####[address] [address] AST [Catalytic activity/Vol] 33 Int._Unit/L Normal 5-43 [facility] Comment on above: Performed By: #### 2 509402, 67512053, 6138580, 5484357 ####[address] [place] [address] Bilirubin [Mass/Vol] 0.5 mg/dL Normal 0.0-1.1 [facility] Comment on above: Performed By: #### 2 524166, 87701724, 5925221, 1123376 ####[facility] [address] [place] [address] [place] [address] Calcium [Mass/Vol] 10.0 mg/dL Normal 8.9-11.1 [facility] Comment on above: Performed By: #### 2 779564, 50937448, 0718979, 0388442 ####[facility] [address] [place] [address] Chloride [Moles/Vol] 102 mmol/L Normal 101-111 [facility] Comment on above: Performed By: #### 2 272561, 92934999, 4034892, 0547761 ####[facility] [address] [place] [address] CO2 [Moles/Vol] 27 mmol/L Normal 21-31 [facility] Comment on above: Performed By: #### 2 641030, 31082788, 2324976, 0774726 ####[facility] [address] [place] [address] Creatinine [Mass/Vol] 1.2 mg/dL Normal 0.5-1.3 [facility] Comment on above: Performed By: #### 2 127858, 38809638, 0063263, 9813645 ####[facility] [address] [place] [address] Globulin (S) [Mass/Vol] 4.2 g/dL High 1.4-4.0 [facility] Comment on above: Performed By: #### 2 726208, 13801878, 8797004, 0625676 ####[facility] [address] [place] [address] Glucose [Mass/Vol] 245 mg/dL High 55-199 [facility] Comment on above: Result Comment: If t his glucose result represents a fasting glucose, interpretation should refer to the following reference range: 55-99 mg/dL Performed By: #### 2 633173, 51807998, 4817752, 8501720 ####[facility] [address] [place] [address] Potassium [Moles/Vol] 4.5 mmol/L Normal 3.5-5.3 [facility] Comment on above: Performed By: #### 2 619241, 22750081, 2160411, 1267926 ####[facility] [address] [place] [address] Protein [Mass/Vol] 8.5 g/dL High 6.0-7.8 [facility] Comment on above: Performed By: #### 2 [id number], [id number], [id number], [id number] ####[facility] [address] [place] [address] Sodium [Moles/Vol] 140 mmol/L Normal 135-145 [facility] Comment on above: Performed By: #### 2 [id number], [id number], [id number], [id number] ####[facility] [address] [place] [address] Urea nitrogen [Mass/Vol] 24 mg/dL High 5-21 [facility] Comment on above: Performed By: #### 2 [id number], [id number], [id number], [id number] ####[facility] [address] [place] [address] Urea nitrogen/Creatinine [Mass ratio] 20 No Units Normal 10-20 [facility] Comment on above: Performed By: #### 2 [id number], [id number], [id number], [id number] ####[facility] [address] [place] [address] Physician Orderon 01-04-2023 Physician Order [id number]#1. 00TIFF Normal [facility] eGFRon 01-04-2023 GFR/1.73 sq M.predicted among non-blacks MDRD (S/P/Bld) [Vol rate/Area] 52 mL/min/1.73 m2 Low >=59 [facility] Comment on above: Order Comment: Order added by Discern Expert. Result Comment: Demolition Engineer garfield kidney disease could be indicated at eGFR's of less than 60 mL/min/1.73m2. Kidney failure is indicated at less than 15 mL/min/1.73m2. Performed By: #### 2 [id number], [id number], [id number], [id number] ####[facility] [address] [place] [address] BD Bone Density DEXAon 12-14 BD Bone Density DEXA Normal [facility] Consent for Treatmenton 11-18 Consent for Treatment [id number]#1 .00TIFF Normal [facility] Physician Orderon 12-13-2022 Physician Order [id number]#1. 00TIFF [facility] Physician Order [id number]#1 .00TIFF [facility] RAD - MISCon 12-13-2022 RAD - MISC [id number]# 1.00TIFF [facility] Physician Orderon 12-11-2022 Physician Order [id number]#1. 00TIFF [facility] CT Spine Lumbar w/o Contrast on 12-06-2022 CT Spine Lumbar w/o Contrast [facility] Consent for Procedure/Surger yon 12-05-2022 Consent for Procedure/Surgery [id number]# 1.00TIFF [facility] Consent for Treatmenton 11-17 Consent for Treatment [id number]#1 .00TIFF [facility] Physician Orderon 12-05-2022 Physician Order [id number]# 1.00TIFF [facility] Ambulatory Visit Summaryon Ambulatory Visit Summary [facility] Gastroenterology Office/Clin ic Noteon 12-03-2022 Gastroenterology Office/Clinic Note Normal [facility] Comment on above: Result Comment: Elec tronically Signed By: Kain VIVEROS, Giulia Kahn\.nedra\Date and Time Signed: 12/03/22 14:[address] [...] to 8 to 9 mm compatible with afiz-ks-cuvwgucm central stenosis. No neural foraminal stenosis. C3-C4: [...] Chance Hugo DO 11/23/22 Final result Normal [facility] XR CERVICAL SPINE (4-5 VIEWS )on 04-03-2022 [...] Clark Veliz MD 04/03/22 Final result Normal [facility] Prior dens fracture with posterior fixation [...] The lung apices are without acute process. [facility] Clark Veliz MD - [...] C1-2 without complication. Multilevel degenerative facet hypertrophy. [employer] Phone: XR CERVICAL SPINE (4-5 VIEWS )Ordered By: Clark Veliz on 04-03-2022 [employer] Phone: XR CERVICAL SPINE (4-5 VIEWS )on 04-02-2022 Radiology Study observation (narrative) [employer] Phone: XR CERVICAL SPINE FLEXION AN D EXTENSIONon 12-06-2021 Similar angulated pathologic dens fracture with posterior fixation C1-C2. [facility] EXAMINATION: 2 XRAY VIEWS [...] is a tracheostomy tube in place. Similar dcft-aa-ymksrrwg degenerative changes lower cervical spine. No localized prevertebral soft tissue swelling. [facility] Jose Chan MD - [...] is a tracheostomy tube in place. Similar nkgd-lx-izwabufk degenerative changes lower cervical spine. No localized prevertebral soft tissue swelling. IMPRESSION: Similar angulated pathologic dens fracture with posterior fixation C1-C2. [employer] Phone: XR CERVICAL SPINE FLEXION AN D EXTENSIONOrdered By: Jose Chan on 12-06-2021 [employer] Phone: XR CERVICAL SPINE FLEXION AN D EXTENSIONon 12-04-2021 Radiology Study observation (narrative) [employer] Phone: Basic Metabolic Panelon 10-0 Anion gap [Moles/Vol] 15.1 mmol/L High 6.0-15.0 [facility] Comment on above: Performed By: #### C BC, BMP #### [facility] [address] [place] [address] [place] Calcium [Mass/Vol] 9.6 mg/dL Normal 8.2-10.2 [facility] Comment on above: Result Comment: PERF ORMED BY: [place] [address] PATHOLOGIST ARMY MANAGER ALEYDA GUERRIER M.D. Performed By: #### C BC, BMP #### [facility] [address] [place] [address] [place] Chloride [Moles/Vol] 97 mmol/L Normal 95-114 [facility] Comment on above: Performed By: #### C BC, BMP #### [facility] [address] [place] [id number] [place] CO2 [Moles/Vol] 25.4 mmol/L Normal 22.0-30.0 [facility] Comment on above: Performed By: #### C BC, BMP #### [facility] [address] Creatinine [Mass/Vol] 0.82 mg/dL Normal 0.44-1.03 [facility] Comment on above: Performed By: #### C BC, BMP #### [facility] [address] Estimated GFR ( Jesusita > 60 Normal [facility] Comment on above: Result Comment: GFR estimated reference range: According to KDOQI guidelines, <60 ml/min/1.73m2 is sufficient to diagnose a patient with chronic kidney disease. Performed By: #### C BC, BMP #### [facility] [address] Estimated GFR (Non- Am > 60 [facility] Comment on above: Performed By: #### C BC, BMP #### [facility] [address] Glucose [Mass/Vol] 105 mg/dL High 70-100 [facility] Comment on above: Result Comment: Merlin om Glucose Reference Range is dependent on time and content of last meal. Glucose of more than 200 mg/dL in a nonstressed, ambulatory subject supports the diagnosis of Diabetes Mellitus. ADA recommended reference range Performed By: #### C BC, BMP #### [facility] [address] [place] [id number] [place] Potassium [Moles/Vol] 4.5 mmol/L Normal 3.5-5.1 [facility] Comment on above: Performed By: #### C BC, BMP #### [facility] [address] [place] [address] [place] Sodium [Moles/Vol] 133 mmol/L Low 136-146 [facility] Comment on above: Performed By: #### C BC, BMP #### [facility] [address] [place] [id number] [facility] Urea nitrogen [Mass/Vol] 31 mg/dL High 9-23 [facility] Comment on above: Performed By: #### C BC, BMP #### [facility] [address] [place] [address] [place] Basophils Auto (Bld) [#/Vol] Ordered By: Rufus Shen on 11-22-2021 Basophils (Bld) [#/Vol] 0.0 10*3/uL 0.0-0.2 [facility] Basophils/100 WBC Auto (Bld) Ordered By: Rufus Shen on 11-22-2021 Basophils/100 WBC (Bld) 0.3 % . F [facility] Blood hemoglobin measurement (mass/volume)Ordered By: Rufus Shen on 11-22-2021 Hemoglobin (Bld) [Mass/Vol] 10.1 g/dL 11.8-15.4 [facility] Blood leukocytes automated c ount (number/volume)Ordered By: Rufus Shen on 11-22-2021 WBC (Bld) [#/Vol] 12.2 10*3/uL 4.5-11.0 [facility] Complete Blood Count Auto Di ffon 11-22-2021 Basophils (Bld) [#/Vol] 0.0 10*3/uL Normal 0.0-0.2 [facility] Comment on above: Result Comment: PERF ORMED BY: [place] [address] PATHOLOGIST ARMY MANAGER ALEYDA GUERRIER M.D. Performed By: #### C CORIE, BMP #### [facility] [address] [place] [address] [place] Basophils/100 WBC (Bld) 0.3 % Normal . F [facility] Comment on above: Performed By: #### C BC, BMP #### [facility] [address] [place] [address] [place] Eosinophils (Bld) [#/Vol] 0.2 10*3/uL Normal 0.0-0.45 [facility] Comment on above: Performed By: #### C BC, BMP #### [facility] [address] [place] [address] [place] Eosinophils/100 WBC (Bld) 2.0 % Normal . [facility] Comment on above: Performed By: #### C BC, BMP #### [facility] [address] Erythrocyte distribution width (RBC) [Ratio] 19.2 % High 11.9-15.3 [facility] Comment on above: Performed By: #### C BC, BMP #### [facility] [address] Hematocrit (Bld) [Volume fraction] 32.0 % Low 34.0-46.4 [facility] Comment on above: Performed By: #### C BC, BMP #### [facility] [address] Hemoglobin (Bld) [Mass/Vol] 10.1 g/dL Low 11.8-15.4 [facility] Comment on above: Performed By: #### C BC, BMP #### [address] Lymphocytes (Bld) [#/Vol] 2.2 10*3/uL Normal 1.00-4.8 [facility] Comment on above: Performed By: #### C BC, BMP #### [address] Lymphocytes/100 WBC (Bld) 18.2 % Normal . [facility] Comment on above: Performed By: #### C BC, BMP #### [address] MCH (RBC) [Entitic mass] 27.0 pg Normal 24.7-34.3 [facility] Comment on above: Performed By: #### C BC, BMP #### [address] MCV (RBC) [Entitic vol] 85.7 fL Normal 80-100 F [facility] Comment on above: Performed By: #### C BC, BMP #### [address] Mean Corpuscular HGB Conc 31.5 g/dL Low 32.0-35.0 [facility] Comment on above: Performed By: #### C BC, BMP #### [facility] [address] [place] [address] [place] Monocytes (Bld) [#/Vol] 0.6 10*3/uL Normal 0.0-0.8 [facility] Comment on above: Performed By: #### C BC, BMP #### [facility] [address] [place] [address] [place] Monocytes/100 WBC (Bld) 5.3 % Normal . F [facility] Comment on above: Performed By: #### C BC, BMP #### [facility] [address] [place] [address] [place] Neutrophils (Bld) [#/Vol] 9.0 10*3/uL High 1.8-7.7 [facility] Comment on above: Performed By: #### C BC, BMP #### [facility] [address] [place] [address] [place] Neutrophils/100 WBC (Bld) 74.2 % Normal . [facility] Comment on above: Performed By: #### C BC, BMP #### [facility] [address] [place] [address] [place] Nucleated RBC/100 WBC (Bld) [Ratio] 0.0 % Normal 0-0.5 [facility] Comment on above: Performed By: #### C BC, BMP #### [facility] [address] [place] [address] [place] Platelet mean volume (Bld) [Entitic vol] 7.4 fL Normal 6.3-10.7 [facility] Comment on above: Performed By: #### C BC, BMP #### [facility] [address] [place] [address] [place] Platelets (Bld) [#/Vol] 543 10*3/uL High 150-450 [facility] Comment on above: Performed By: #### C BC, BMP #### [facility] [address] [place] [address] [place] RBC (Bld) [#/Vol] 3.74 10*6/uL Normal 3.60-5.00 [facility] Comment on above: Performed By: #### C BC, BMP #### [facility] [address] [place] [address] [place] WBC (Bld) [#/Vol] 12.2 10*3/uL High 4.5-11.0 [facility] Comment on above: Performed By: #### C CORIE, BMP #### [facility] [address] Creatinine and Glomerular fi ltration rate.predicted panel (S/P/Bld)Ordered By: Rufus Shen on 11-22-2021 Creatinine [Mass/Vol] 0.82 mg/dL 0.44-1.03 [facility] Eosinophils Auto (Bld) [#/Vo l]Ordered By: Rufus Shen on 11-22-2021 Eosinophils (Bld) [#/Vol] 0.2 10*3/uL 0.0-0.45 [facility] Eosinophils/100 WBC Auto (Bl d)Ordered By: Rufus Shen on 11-22-2021 Eosinophils/100 WBC (Bld) 2.0 % . [facility] Erythrocyte distribution wid th Auto (RBC) [Ratio]Ordered By: Rufus Shen on 11-22-2021 Erythrocyte distribution width (RBC) [Ratio] 19.2 % 11.9-15.3 [facility] Estimated glomerular filtrat ion rate (GFR) non- AmericanOrdered By: Rufus Shen on 11-22-2021 GFR/1.73 sq M.predicted among non-blacks MDRD (S/P/Bld) [Vol rate/Area] > 60 mL/Min [facility] Hematocrit Auto (Bld) [Volum e fraction]Ordered By: Rufus Shen on 11-22-2021 Hematocrit (Bld) [Volume fraction] 32.0 % 34.0-46.4 [facility] Laboratory - Hematology and Cell countsOrdered By: Rufus Shen on 11-22-2021 Nucleated RBC/100 WBC (Bld) [Ratio] 0.0 % 0-0.5 [facility] Lymphocytes Auto (Bld) [#/Vo l]Ordered By: Rufus Shen on 11-22-2021 Lymphocytes (Bld) [#/Vol] 2.2 10*3/uL 1.00-4.8 [facility] Lymphocytes/100 WBC Auto (Bl d)Ordered By: Rufus Shen on 11-22-2021 Lymphocytes/100 WBC (Bld) 18.2 % . [facility] MCH Auto (RBC) [Entitic mass ]Ordered By: Rufus Shen on 11-22-2021 MCH (RBC) [Entitic mass] 27.0 pg 24.7-34.3 [facility] MCHC Auto (RBC) [Mass/Vol]Or dered By: Rufus Shen on 11-22-2021 MCHC (RBC) [Mass/Vol] 31.5 g/dL 32.0-35.0 [facility] MCV Auto (RBC) [Entitic vol] Ordered By: Rufus Shen on 11-22-2021 MCV (RBC) [Entitic vol] 85.7 fL 80-100 F [facility] Monocytes Auto (Bld) [#/Vol] Ordered By: Rufus Shen on 11-22-2021 Monocytes (Bld) [#/Vol] 0.6 10*3/uL 0.0-0.8 [facility] Monocytes/100 WBC Auto (Bld) Ordered By: Rufus Shen on 11-22-2021 Monocytes/100 WBC (Bld) 5.3 % . F [facility] Neutrophils Auto (Bld) [#/Vo l]Ordered By: Rufus Shen on 11-22-2021 Neutrophils (Bld) [#/Vol] 9.0 10*3/uL 1.8-7.7 [facility] Neutrophils/100 WBC Auto (Bl d)Ordered By: Rufus Shen on 11-22-2021 Neutrophils/100 WBC (Bld) 74.2 % . [facility] No Panel InformationOrdered By: Rufus Shen on 11-22-2021 Estimated GFR () > 60 mL/Min [facility] Comment on above: GFR estimated refere nce range: According to KDOQI guidelines, <60 ml/min/1.73m2 is sufficient to diagnose a patient with chronic kidney disease. Pharmacy Creatinine Clearance (Chem N/A [facility] Platelet mean volume Auto (B ld) [Entitic vol]Ordered By: Rufus Shen on 11-22-2021 Platelet mean volume (Bld) [Entitic vol] 7.4 fL 6.3-10.7 [facility] Platelets Auto (Bld) [#/Vol] Ordered By: Rufus Shen on 11-22-2021 Platelets (Bld) [#/Vol] 543 10*3/uL 150-450 [facility] RBC Auto (Bld) [#/Vol]Ordere d By: Rufus Shen on 11-22-2021 RBC (Bld) [#/Vol] 3.74 10*6/uL 3.60-5.00 [facility] Serum or plasma anion gap de terminationOrdered By: Rufus Shen on 11-22-2021 Anion gap [Moles/Vol] 15.1 mmol/L 6.0-15.0 [facility] Serum or plasma calcium shakir urement (mass/volume)Ordered By: Rufus Shen on 11-22-2021 Calcium [Mass/Vol] 9.6 mg/dL 8.2-10.2 [facility] Serum or plasma chloride giovanna surement (moles/volume)Ordered By: Rufus Shen on 11-22-2021 Chloride [Moles/Vol] 97 mmol/L 95-114 [facility] Serum or plasma glucose shakir urement (mass/volume)Ordered By: Rufus Shen on 11-22-2021 Glucose [Mass/Vol] 105 mg/dL 70-100 [facility] Comment on above: ADA recommended refe rence rangeRandom Glucose Reference Range is dependent on time and content of last meal. Glucose of more than 200 mg/dL in a nonstressed, ambulatory subject supports the diagnosis of Diabetes Mellitus. Serum or plasma potassium me asurement (moles/volume)Ordered By: Rufus Shen on 11-22-2021 Potassium [Moles/Vol] 4.5 mmol/L 3.5-5.1 [facility] Serum or plasma sodium measu rement (moles/volume)Ordered By: Rufus Shen on 11-22-2021 Sodium [Moles/Vol] 133 mmol/L 136-146 [facility] Serum or plasma total carbon dioxide measurement (moles/volume)Ordered By: Rufus Shen on 11-22-2021 CO2 [Moles/Vol] 25.4 mmol/L 22.0-30.0 [facility] Serum or plasma urea nitroge n measurement (mass/volume)Ordered By: Rufus Shen on 11-22-2021 Urea nitrogen [Mass/Vol] 31 mg/dL 9-23 [facility] BASIC METABOLIC PANELon 10-18 Anion gap [Moles/Vol] 10 mmol/L Normal <=30 [facility] Comment on above: Performed By: #### L AB15 #### [facility] ([facility]AK[facility]) [address] [place] [address] Calcium [Mass/Vol] 9.6 mg/dL Normal 8.6-10.3 [facility] Comment on above: Performed By: #### L [id number] #### [facility] ([facility]AK[facility]) [address] [place] [address] Chloride [Moles/Vol] 101 mmol/L Normal 98-107 [facility] Comment on above: Performed By: #### L AB15 #### [facility] ([facility]AKER) [address] [place] [address] CO2 [Moles/Vol] 28 mmol/L Normal 21-31 [facility] Comment on above: Performed By: #### L AB15 #### [facility] ([facility]) [address] [place] [address] Creatinine [Mass/Vol] 0.71 mg/dL Normal 0.60-1.20 [facility] Comment on above: Performed By: #### L AB15 #### [facility] ([facility]) [address] [place] [address] GLOMERULAR FILTRATION RATE ML/MIN/1.73 SQ M.PREDICTED 94.2 mL/min/1.73m*2 Normal >60.0 [facility] Comment on above: Result Comment: [facility]???s estimated glomerular filtration rate (eGFR) will no [...] individuals. Performed By: #### L AB15 #### [facility] ([facility]) [address] [place] [address] Glucose [Mass/Vol] 74 mg/dL Normal 70-100 [facility] Comment on above: Performed By: #### L AB15 #### [facility] ([facility]) [address] [place] [address] Potassium [Moles/Vol] 4.3 mmol/L Normal 3.5-5.1 [facility] Comment on above: Performed By: #### L AB15 #### [facility] ([facility]) [address] [place] [address] Sodium [Moles/Vol] 139 mmol/L Normal 136-145 [facility] Comment on above: Performed By: #### L AB15 #### [facility] ([facility]) [address] [place] [address] Urea nitrogen [Mass/Vol] 36 mg/dL High 7-25 [facility] Comment on above: Performed By: #### L AB15 #### [facility] ([facility]) [address] [place] [address] UREA NITROGEN/CREATININE (MASS RATIO) IN SER/PLAS 50.70 Normal [facility] Comment on above: Performed By: #### L [id number] #### [facility] ([facility]) [address] [place] [address] HEMATOCRITon 10-27-2021 Hematocrit (Bld) [Volume fraction] 33.5 % Low 36.0-48.0 [facility] Comment on above: Performed By: #### L [id number] #### [facility] (BEAKER) [address] [address] HEMOGLOBINon 10-27-2021 Hemoglobin (Bld) [Mass/Vol] 10.7 g/dL Low 12.0-15.0 [facility] Comment on above: Performed By: #### L [id number] #### [facility] ([facility]) [address] [place] [address] ARTERIAL BLOOD GAS WITH ICAo n 08-21-2021 BASE EXCESS -7 mmol/L Low -2-3 [facility] Comment on above: Performed By: #### 8 4511 ####[facility] [place] [address], [facility] VENT Normal [facility] Comment on above: Performed By: #### 8 4511 ####[facility] [facility] [address], [facility] FIO2 30 % Normal [facility] Comment on above: Performed By: #### 8 4511 ####[facility] [place] [address], [facility] HCO3 (Bld) [Moles/Vol] 17 mmol/L Low 21-28 e [facility] Comment on above: Performed By: #### 8 4511 ####[facility] [place] [address], [facility] IONIZED CALCIUM 1.20 mmol/L Normal 1.13-1.32 [facility] Comment on above: Performed By: #### 8 4511 ####[facility] [place] [address], [facility] MIN VOLUME 6.7 Normal [facility] Comment on above: Performed By: #### 8 4511 ####[facility] [place] [address], [place] MODALITY VENT Normal [facility] Comment on above: Performed By: #### 8 4511 ####[facility] [place] [address], [facility] Oxygen (Bld) [Partial pressure] 163 mm[Hg] Critically high 83-108 [facility] Comment on above: Performed By: #### 8 4511 ####[facility] [place] [address], [place] Oxygen saturation in Blood 97.1 % High 94.0-97.0 [facility] Comment on above: Performed By: #### 8 4511 ####[facility] [place] [address], [place] PCO2 28 mmHg Low 35-45 [facility] Comment on above: Performed By: #### 8 4511 ####[facility] [place] [address], [place] PEEP 8.0 CMH20 Normal [facility] Comment on above: Performed By: #### 8 4511 ####[facility] [place] [address], [place] PF RATIO 543 mmHg Normal [facility] Comment on above: Performed By: #### 8 4511 ####[facility] [place] [address], [place] pH (Bld) 7.39 [pH] Normal 7.35-7.45 [facility] Comment on above: Performed By: #### 8 4511 ####[facility] [place] [address], [place] PRESSURE SUPPORT 8 Normal [facility] Comment on above: Performed By: #### 8 4511 ####[facility] [place] [address], [place] BASE EXCESS -7 mmol/L Low -2-3 [facility] Comment on above: Performed By: #### 8 4511 ####[facility] [place] [address], [facility] VENT Normal [facility] Comment on above: Performed By: #### 8 4511 ####[facility] [place] [address], [place] FIO2 30 % Normal [facility] Comment on above: Performed By: #### 8 4511 ####[facility] [place] [address], [place] HCO3 (Bld) [Moles/Vol] 17 mmol/L Low - e [facility] Comment on above: Performed By: #### 8 4511 ####[facility] [place] [address], [place] IONIZED CALCIUM 1.15 mmol/L Normal 1.13-1.32 [facility] Comment on above: Performed By: #### 8 4511 ####[facility] [place] [address], [place] MIN VOLUME 8.2 Normal [facility] Comment on above: Performed By: #### 8 4511 ####[facility] [facility] [place] [address], [place] MODALITY AC Normal [facility] Comment on above: Performed By: #### 8 4511 ####[facility] [place] [address], [place] Oxygen (Bld) [Partial pressure] 158 mm[Hg] Critically high 83-108 [facility] Comment on above: Performed By: #### 8 4511 ####[facility] [place] [address], [place] Oxygen saturation in Blood 97.6 % High 94.0-97.0 The [facility] Comment on above: Performed By: #### 8 4511 ####[facility] [place] [address], [facility] PCO2 26 mmHg Low 35-45 The [facility] Comment on above: Performed By: #### 8 4511 ####[facility] [place] [address], [facility] PEEP 8.0 CMH20 Normal [facility] Comment on above: Performed By: #### 8 4511 ####[facility], [place] [id number] [place] [address] PF RATIO 526 mmHg Normal [facility] Comment on above: Performed By: #### 8 4511 ####[facility] [facility], [place] [id number] [place] [address] pH (Bld) 7.41 [pH] Normal 7.35-7.45 The [facility] Comment on above: Performed By: #### 8 4511 ####[facility], [place] [id number] [place] [address] Respiratory rate 12 /min Normal [facility] Comment on above: Performed By: #### 8 4511 ####[facility]3000 [facility].[address] TIDAL VOLUME (VT) CC 450 Normal [facility] Comment on above: Performed By: #### 8 4511 ####[facility], [place] [id number] [place] [address] BASE EXCESS -3 mmol/L Low -2-3 [facility] Comment on above: Performed By: #### 8 4511 ####[facility], [place] [id number] [place] [address] DELIVERY SYSTEMS MV Normal The [facility] Comment on above: Performed By: #### 8 4511 ####[facility], [place] [address] FIO2 30 % Normal [facility] Comment on above: Performed By: #### 8 4511 ####[facility] [place] [address], [facility] HCO3 (Bld) [Moles/Vol] 21 mmol/L Normal 21-28 Th e [facility] Comment on above: Performed By: #### 8 4511 ####[facility] IONIZED CALCIUM 1.24 mmol/L Normal 1.13-1.32 The [facility] Comment on above: Performed By: #### 8 4511 ####[facility] [place] [address], [facility] MIN VOLUME 6.7 Normal [facility] Comment on above: Performed By: #### 8 4511 ####[facility] [place] [address], [facility] MODALITY AC Normal [facility] Comment on above: Performed By: #### 8 4511 ####[facility] Oxygen (Bld) [Partial pressure] 155 mm[Hg] Critically high 83-108 The [facility] Comment on above: Performed By: #### 8 4511 ####[facility] Oxygen saturation in Blood 98.3 % High 94.0-97.0 The [facility] Comment on above: Performed By: #### 8 4511 ####[facility] [place] [address], [facility] PCO2 32 mmHg Low 35-45 The [facility] Comment on above: Performed By: #### 8 4511 ####[facility] [place] [address], [facility] PEEP 8.0 CMH20 Normal [facility] Comment on above: Performed By: #### 8 4511 ####[facility] [place] [address], [facility] pH (Bld) 7.42 [pH] Normal 7.35-7.45 The [facility] Comment on above: Performed By: #### 8 4511 ####[facility] [place] [address], [facility] Respiratory rate 12 /min Normal [facility] Comment on above: Performed By: #### 8 4511 ####[facility] [place] [address], [facility] TIDAL VOLUME (VT) CC 450 Normal [facility] Comment on above: Performed By: #### 8 4511 ####[facility] [place] [address], [facility] BASIC METABOLIC PANELon 07-0 Calcium [Mass/Vol] 7.9 mg/dL Low 8.6-10.3 The [facility] Comment on above: Order Comment: No: D o not add to previous draw Performed By: #### 6 2594 #### [facility] [address] [place] [address], [place] Chloride [Moles/Vol] 110 mmol/L High 98-107 [facility] Comment on above: Order Comment: No: D o not add to previous draw Performed By: #### 6 2594 #### [facility] [address] [place] [address], [place] CO2 [Moles/Vol] 20 mmol/L Low 21-31 The [facility] Comment on above: Order Comment: No: D o not add to previous draw Performed By: #### 6 2594 #### [facility] [address] [place] [address], [place] Creatinine [Mass/Vol] 0.77 mg/dL Normal 0.60-1.20 The [facility] Comment on above: Order Comment: No: D o not add to previous draw Performed By: #### 6 259 #### [facility] [address] [place] [address], [place] GFR/1.73 sq M.predicted among blacks MDRD (S/P/Bld) [Vol rate/Area] mL/min/{1.73_m2} Normal >60 The [facility] Comment on above: Order Comment: No: D o not add to previous draw Performed By: #### 6 2594 #### [facility] [address] [place] [address], [place] GFR/1.73 sq M.predicted among non-blacks MDRD (S/P/Bld) [Vol rate/Area] mL/min/{1.73_m2} Normal >60 The [facility] Comment on above: Order Comment: No: D o not add to previous draw Performed By: #### 6 2594 #### [facility] [address] [place] [address], [place] Glucose [Mass/Vol] 124 mg/dL High 70-100 [facility] Comment on above: Order Comment: No: D o not add to previous draw Performed By: #### 6 2594 #### [facility] [address] [place] [address], [place] Potassium [Moles/Vol] 3.8 mmol/L Normal 3.5-5.1 The [facility] Comment on above: Order Comment: No: D o not add to previous draw Performed By: #### 6 2594 #### [facility] [address] [place] [address], [place] Sodium [Moles/Vol] 139 mmol/L Normal 136-145 [facility] Comment on above: Order Comment: No: D o not add to previous draw Performed By: #### 6 2591 #### [facility] [address] Urea nitrogen [Mass/Vol] 26 mg/dL High 7-25 [facility] Comment on above: Order Comment: No: D o not add to previous draw Performed By: #### 6 2594 #### [facility] [address] [place] [address], [facility] CBC COMPLETE BLOOD COUNTon 0 08-21-2021 Erythrocyte distribution width (RBC) [Ratio] 18.3 % High 11.5-15.0 The [facility] Comment on above: Order Comment: No: D o not add to previous draw Nurse draw Performed By: #### 5 0608 #### [facility] [address] [place] [address], [facility] Hematocrit (Bld) [Volume fraction] 24.4 % Low 36.0-45.0 The [facility] Comment on above: Order Comment: No: D o not add to previous draw Nurse draw Performed By: #### 5 0608 #### [facility] [address] [place] [address], [facility] Hemoglobin (Bld) [Mass/Vol] 8.2 g/dL Low 12.0-15.0 The [facility] Comment on above: Order Comment: No: D o not add to previous draw Nurse draw Performed By: #### 5 0608 #### [facility] [address] [place] [id number], [facility] MCH (RBC) [Entitic mass] 30.5 pg Normal 27.0-33.0 The [facility] Comment on above: Order Comment: No: D o not add to previous draw Nurse draw Performed By: #### 5 0608 #### [facility] [address] [place] [id number], [facility] MCHC (RBC) [Mass/Vol] 33.6 g/dL Normal 32.0-35.0 [facility] Comment on above: Order Comment: No: D o not add to previous draw Nurse draw Performed By: #### 5 0608 #### [facility] [address] [facility] [place] [address], [facility] MCV (RBC) [Entitic vol] 90.7 fL Normal 82.0-98.0 T he [facility] Comment on above: Order Comment: No: D o not add to previous draw Nurse draw Performed By: #### 5 0608 #### [facility] [address] [place] [address], [facility] Nucleated RBC/100 WBC (Bld) [Ratio] 0 % Normal 0-0 The [facility] Comment on above: Order Comment: No: D o not add to previous draw Nurse draw Performed By: #### 5 0608 #### [facility] [address] [place] [address], [facility] PLAT CNT 297 10*3/uL Normal 150-400 The [facility] Comment on above: Order Comment: No: D o not add to previous draw Nurse draw Performed By: #### 5 0608 #### [facility] [address] [place] [address], [facility] RBC (Bld) [#/Vol] 2.69 10*6/uL Low 3.80-5.00 The [facility] Comment on above: Order Comment: No: D o not add to previous draw Nurse draw Performed By: #### 5 0608 #### [facility] [address] [place] [address], [facility] WBC (Bld) [#/Vol] 11.33 10*3/uL High 4.00-10.60 [facility] Comment on above: Order Comment: No: D o not add to previous draw Nurse draw Performed By: #### 5 0608 #### [facility] [address] [place] [address], [facility] CT BRAIN WO CONTRASTon 08-21 CT BRAIN WO CONTRAST [facility] Department of Radiology [address] [place] [address] [phone] Patient Name: MEG GEORGES : 1965 Sex: F Age: Race: White Pt. Location: [place] [address] Patient Status: I Ordered Date: 08/21/2021 12:50:00 [...] report. Electronically signed: Martinez Hoover. Transcribed by: [email or web address], User Resident: ARIEL SOLORZANO Electronically Signed by: MARTINEZ HOOVER @ 08/21/2021 05:07 PM I personally read this/these film(s) with this resident Normal The [facility] Comment on above: Order Comment: Check NG Tube Position CT FACIAL BONES W CONTRASTon 08-21-2021 CT FACIAL BONES W CONTRAST [facility] Department of Radiology [address] [place] [phone] Patient Name: MEG GEORGES : 1965 Sex: F Age: Race: White Pt. Location: [place] [address] Patient Status: I Ordered Date: 08/21/2021 12:50:00 [...] above. Electronically signed: Martinez Hoover. Transcribed by: [email or web address], User Resident: Electronically Signed by: MARTINEZ HOOVER @ 08/21/2021 05:09 PM Normal [facility] Comment on above: Order Comment: R/O A telectasis LACTATE BLOODon 08-21-2021 Lactate [Moles/Vol] 0.6 mmol/L Normal .5-2.2 The U [facility] Comment on above: Order Comment: No: D o not add to previous draw Performed By: #### 1 0054 ####[facility] [place] [address], [facility] LIVER BATTERYon 08-21-2021 Albumin [Mass/Vol] 2.3 g/dL Low 3.5-5.7 [facility] Comment on above: Order Comment: No: D o not add to previous draw Performed By: #### 6 2594 #### [facility] [address] [place] [address], [place] ALKALINE PHOSPH 172 IU/L High 34-104 The [facility] Comment on above: Order Comment: No: D o not add to previous draw Performed By: #### 6 2594 #### [facility] [address] [place] [address], [place] ALT [Catalytic activity/Vol] 9 U/L Normal 7-52 The [facility] Comment on above: Order Comment: No: D o not add to previous draw Performed By: #### 6 2594 #### [facility] [address] [place] [address], [place] AST [Catalytic activity/Vol] 12 U/L Low 13-39 The [facility] Comment on above: Order Comment: No: D o not add to previous draw Performed By: #### 6 2594 #### [facility] [address] [place] [address], [place] Bilirubin [Mass/Vol] 0.4 mg/dL Normal 0.3-1.0 The [facility] Comment on above: Order Comment: No: D o not add to previous draw Performed By: #### 6 2594 #### [facility] [address] [place] [address], [place] Bilirubin.direct [Mass/Vol] 0.1 mg/dL Normal 0.0-0.2 The [facility] Comment on above: Order Comment: No: D o not add to previous draw Performed By: #### 6 2594 #### [facility] [address] [place] [address], [place] Protein [Mass/Vol] 5.7 g/dL Low 6.0-8.3 The [facility] Comment on above: Order Comment: No: D o not add to previous draw Performed By: #### 6 2594 #### [facility] [address] MAGNESIUM BLOODon 08-21-2021 Magnesium [Mass/Vol] 2.1 mg/dL Normal 1.9-2.7 The [facility] Comment on above: Order Comment: No: D o not add to previous draw Performed By: #### 6 2594 #### [facility] [address] Operative Reporton 2 Operative Report MR#: [id number] I [facility] Pt. Name: Meg Georges Room #: BECKY [id number] Discharge Date: Birthdate: 1965 OPERATIVE REPORT DATE OF SURGERY: 08/21/2021 SURGEON: Jerry Pozo MD Operative report: Percutaneous endoscopic gastrostomy tube placement Location: [facility] main OR Date: 08/21/2021 Preoperative diagnosis: Oropharyngeal dysphagia, nasopharyngeal erosion Postoperative diagnosis: Same Operation performed: Percutaneous endoscopic gastrostomy tube placement Surgeon: Jerry Pozo MD Speech Correction Assistant: Garfield Bowen MD ( resident PGY 5) Estimated blood loss: 2 mL Wound classification: Clean contaminated Tubes and drains: 20 Romansh gastrostomy tube pull type Local anesthetic: 1% lidocaine plain, 4 mL used for subcutaneous infiltration Anesthesia: General anesthesia Indication: This is a 56-year-old woman who had a prolonged hospitalization at [facility] in [place] over the last several months for COVID-related pneumonia and subsequent bacterial pneumonia complications. Patient had chronic hypoxemic respiratory failure requiring placement of tracheostomy approximately 2 weeks ago prior to transfer to LT[facility]. Patient presented to [facility] 1 day ago for acute bleeding [...] Pozo MD Date Trans: 08/21/2021 11:17 A/ LAUREN_JN:[id number] cc: Johny Beckman M.D. 3000 [facility] Emergency Medicine [facility] [address] Neri Santa D[address]O. [address] [facility] [facility] [address] Normal The [facility] PHOSPHORUS BLOODon 2 Phosphate [Mass/Vol] 2.3 mg/dL Low 2.5-5.0 The [facility] Comment on above: Order Comment: No: D o not add to previous draw Performed By: #### 6 2594 #### [facility] [address] [place] [address], [facility] POC GLUCOSE LABon 08-21-2021 Glucose [Mass/Vol] 138 mg/dL High 70-100 The [facility] Comment on above: Performed By: #### 8 5499 #### [facility] [address] [facility] [place] [address], [place] Glucose [Mass/Vol] 164 mg/dL High 70-100 The Un [facility] Comment on above: Performed By: #### 8 5499 ####[facility] [place] [address], [facility] Glucose [Mass/Vol] 143 mg/dL High 70-100 [facility] Comment on above: Order Comment: Bleed ing s/p recent tracheostomy Performed By: #### 8 5499 ####[facility] [facility] [address], [place] Glucose [Mass/Vol] 124 mg/dL High 70-100 The [facility] Comment on above: Performed By: #### 8 5499 ####[facility] [facility] [address], [place] PORTABLE CHEST 1 VIEWon PORTABLE CHEST 1 VIEW [facility] Department of Radiology [address] [place] [phone] Patient Name: MEG GEORGES : 1965 Sex: F Age: Race: White Pt. Location: [place] [address] Patient Status: I Ordered Date: 08/21/2021 5:00:00 [...] unchanged. Electronically signed: Yaritza Young. Transcribed by: [email or web address], User Resident: Electronically Signed by: YARITZA YOUNG @ 08/21/2021 07:38 AM Normal The [facility] Comment on above: Order Comment: R/O A telectasis *BLOOD CULTUREon 08-20-2021 *BLOOD CULTURE Clinical Report: (D) Specimen: BLOOD CULTURE Collected: 08/20/2021 00:47 Status: Final Last Updated: 08/25/2021 06:53 (1) RIGHT AC @ 0045. CULT RES (Final) No Growth Day 5 Normal [facility] Comment on above: Order Comment: RIGHT AC @ 0045. Performed By: #### 3 0313 #### [facility] [address] *BLOOD CULTURE Clinical Report: (D) Specimen: BLOOD CULTURE Collected: 08/20/2021 00:47 Status: Final Last Updated: 08/25/2021 06:53 (1) LEFT AC @ 0040. CULT RES (Final) No Growth Day 5 Normal [facility] Comment on above: Order Comment: Bleed ing s/p recent tracheostomy Performed By: #### 3 0313 ####[facility] APTTon 08-20-2021 aPTT Coag (Bld) [Time] 58.3 s High 25.0-35.0 Th e [facility] Comment on above: Result Comment: ALL RESULTS [...] PURPOSE. Performed By: #### 6 2594 #### [facility] [address] [place] [address], [facility] ARTERIAL BLOOD GAS WITH ICAo n 08-20-2021 BASE EXCESS -2 mmol/L Normal -2-3 [facility] Comment on above: Order Comment: RESUL TS CHECKED AND CALLED. ACCURATELY READ BACK BY DR CALI Performed By: #### 8 4511 ####[facility] [place] [address], [facility] DELIVERY SYSTEMS MV Normal [facility] Comment on above: Order Comment: RESUL TS CHECKED AND CALLED. ACCURATELY READ BACK BY DR CALI Performed By: #### 8 4511 ####[place] [address] [address] FIO2 50 % Normal [facility] Comment on above: Order Comment: RESUL TS CHECKED AND CALLED. ACCURATELY READ BACK BY DR CALI Performed By: #### 8 4511 ####[place] [address] [address] HCO3 (Bld) [Moles/Vol] 20 mmol/L Low 21-28 Th e [facility] Comment on above: Order Comment: RESUL TS CHECKED AND CALLED. ACCURATELY READ BACK BY DR CALI Performed By: #### 8 4511 ####[address] IONIZED CALCIUM 1.09 mmol/L Low 1.13-1.32 The [facility] Comment on above: Order Comment: RESUL TS CHECKED AND CALLED. ACCURATELY READ BACK BY DR CALI Performed By: #### 8 4511 ####[address] MIN VOLUME 8.9 Normal The [facility] Comment on above: Order Comment: RESUL TS CHECKED AND CALLED. ACCURATELY READ BACK BY DR CALI Performed By: #### 8 4511 ####[place] [address] [address] MODALITY AC Normal The [facility] Comment on above: Order Comment: RESUL TS CHECKED AND CALLED. ACCURATELY READ BACK BY DR CALI Performed By: #### 8 4511 ####[address] Oxygen (Bld) [Partial pressure] 239 mm[Hg] Critically high 83-108 The [facility] Comment on above: Order Comment: RESUL TS CHECKED AND CALLED. ACCURATELY READ BACK BY DR CALI Performed By: #### 8 4511 ####[facility] Oxygen saturation in Blood 97.6 % High 94.0-97.0 [facility] Comment on above: Order Comment: RESUL TS CHECKED AND CALLED. ACCURATELY READ BACK BY DR CALI Performed By: #### 8 4511 ####[facility] [place] [address], [facility] PCO2 24 mmHg Critically low 35-45 The [facility] Comment on above: Order Comment: RESUL TS CHECKED AND CALLED. ACCURATELY READ BACK BY DR CALI Performed By: #### 8 4511 ####[facility] [facility] PEEP 8.0 CMH20 Normal The [facility] Comment on above: Order Comment: RESUL TS CHECKED AND CALLED. ACCURATELY READ BACK BY DR CALI Performed By: #### 8 4511 ####[facility] [facility] pH (Bld) 7.52 [pH] High 7.35-7.45 The [facility] Comment on above: Order Comment: RESUL TS CHECKED AND CALLED. ACCURATELY READ BACK BY DR CALI Performed By: #### 8 4511 ####[facility]3000 [facility].[address] Respiratory rate 14 /min Normal The [facility] Comment on above: Order Comment: RESUL TS CHECKED AND CALLED. ACCURATELY READ BACK BY DR CALI Performed By: #### 8 4511 ####[facility]3000 [facility].[address] TIDAL VOLUME (VT) CC 550 Normal [facility] Comment on above: Order Comment: RESUL TS CHECKED AND CALLED. ACCURATELY READ BACK BY DR CALI Performed By: #### 8 4511 ####[facility] BASIC METABOLIC PANELon 07-0 Calcium [Mass/Vol] 6.2 mg/dL Critically low 8.6-10.3 Th e [facility] Comment on above: Order Comment: Check NG Tube Position Performed By: #### 1 0070, 67280, 27352, 44549 ####[facility] [place] [address], [facility] Chloride [Moles/Vol] 112 mmol/L High 98-107 The [facility] Comment on above: Order Comment: Check NG Tube Position Performed By: #### 1 0070, 21661, 54795, 76306 ####[facility] [place] [address], [facility] CO2 [Moles/Vol] 17 mmol/L Low 21-31 The [facility] Comment on above: Order Comment: Check NG Tube Position Performed By: #### 1 0070, 42765, 88945, 72305 ####[facility] [place] [address], [facility] Creatinine [Mass/Vol] 0.80 mg/dL Normal 0.60-1.20 The [facility] Comment on above: Order Comment: Check NG Tube Position Performed By: #### 1 0070, 37636, 94657, 78806 ####[facility] [place] [address], [place] GFR/1.73 sq M.predicted among blacks MDRD (S/P/Bld) [Vol rate/Area] mL/min/{1.73_m2} Normal >60 The [facility] Comment on above: Order Comment: Check NG Tube Position Performed By: #### 1 0070, 99161, 04938, 11238 ####[facility] [place] [address], [place] GFR/1.73 sq M.predicted among non-blacks MDRD (S/P/Bld) [Vol rate/Area] mL/min/{1.73_m2} Normal >60 The [facility] Comment on above: Order Comment: Check NG Tube Position Performed By: #### 1 0070, 81519, 46819, 94302 ####[facility] [facility] [address], [facility] Glucose [Mass/Vol] 123 mg/dL High 70-100 The [facility] Comment on above: Order Comment: Check NG Tube Position Performed By: #### 1 0070, 87997, 84841, 73240 ####[facility] [facility] [address], [facility] Potassium [Moles/Vol] 3.1 mmol/L Low 3.5-5.1 The [facility] Comment on above: Order Comment: Check NG Tube Position Performed By: #### 1 0070, 68045, 51631, 96113 ####[facility]3000 [facility] Sodium [Moles/Vol] 137 mmol/L Normal 136-145 The [facility] [place] Comment on above: Order Comment: Check NG Tube Position Performed By: #### 1 0070, 42062, 56600, 59223 ####[facility] Urea nitrogen [Mass/Vol] 31 mg/dL High 7-25 The [facility] Comment on above: Order Comment: Check NG Tube Position Performed By: #### 1 0070, 08582, 07330, 29617 ####[facility]3000 [facility] [address], [facility] CBC W/DIFFon 08-20-2021 ABS IMM GRANS 0.1 10*3/uL Normal 0.0-0.2 The [facility] Comment on above: Order Comment: Bleed ing s/p recent tracheostomy Performed By: #### 5 0103 ####[facility] [place] [address], [facility] ABS NEUTROPHILS 9.2 10*3/uL High 1.6-7.6 The [facility] Comment on above: Order Comment: Bleed ing s/p recent tracheostomy Performed By: #### 5 0103 ####[facility] Basophils (Bld) [#/Vol] 0.0 10*3/uL Normal 0.0-0.2 The [facility] Comment on above: Order Comment: Bleed ing s/p recent tracheostomy Performed By: #### 5 0103 ####[facility] Basophils/100 WBC (Bld) 0.3 % Normal 0.0-1.0 T [facility] Comment on above: Order Comment: Bleed ing s/p recent tracheostomy Performed By: #### 5 0103 ####[facility] Eosinophils (Bld) [#/Vol] 0.1 10*3/uL Normal 0.0-0.5 The [facility] Comment on above: Order Comment: Bleed ing s/p recent tracheostomy Performed By: #### 5 0103 ####[facility] Eosinophils/100 WBC (Bld) 0.4 % Normal 0.0-6.0 The [facility] Comment on above: Order Comment: Bleed ing s/p recent tracheostomy Performed By: #### 5 0103 ####[facility] Erythrocyte distribution width (RBC) [Ratio] 17.2 % High 11.5-15.0 The [facility] Comment on above: Order Comment: Bleed ing s/p recent tracheostomy Performed By: #### 5 0103 ####[facility]3000 [facility] Hematocrit (Bld) [Volume fraction] 23.9 % Low 36.0-45.0 The [facility] Comment on above: Order Comment: Bleed ing s/p recent tracheostomy Performed By: #### 5 0103 ####[facility] Hemoglobin (Bld) [Mass/Vol] 8.1 g/dL Low 12.0-15.0 The [facility] Comment on above: Order Comment: Bleed ing s/p recent tracheostomy Performed By: #### 5 0103 ####[facility] IMMATURE GRANS 0.6 % Normal 0.0-1.0 The [facility] Comment on above: Order Comment: Bleed ing s/p recent tracheostomy Performed By: #### 5 0103 ####[facility] Lymphocytes (Bld) [#/Vol] 3.3 10*3/uL Normal 1.2-4.0 The [facility] Comment on above: Order Comment: Bleed ing s/p recent tracheostomy Performed By: #### 5 0103 ####[facility] Lymphocytes/100 WBC (Bld) 24.4 % Normal 20.0-45.0 The [facility] Comment on above: Order Comment: Bleed ing s/p recent tracheostomy Performed By: #### 5 0103 ####[facility] MCH (RBC) [Entitic mass] 30.6 pg Normal 27.0-33.0 The [facility] Comment on above: Order Comment: Bleed ing s/p recent tracheostomy Performed By: #### 5 0103 ####[facility] MCHC (RBC) [Mass/Vol] 33.9 g/dL Normal 32.0-35.0 The [facility] Comment on above: Order Comment: Bleed ing s/p recent tracheostomy Performed By: #### 5 0103 ####[facility] MCV (RBC) [Entitic vol] 90.2 fL Normal 82.0-98.0 T [facility] Comment on above: Order Comment: Bleed ing s/p recent tracheostomy Performed By: #### 5 0103 ####[facility] Monocytes (Bld) [#/Vol] 1.0 10*3/uL Normal 0.1-1.0 The [facility] Comment on above: Order Comment: Bleed ing s/p recent tracheostomy Performed By: #### 5 0103 ####[facility] MONOS 7.2 % Normal 5.0-12.0 The [facility] Comment on above: Order Comment: Bleed ing s/p recent tracheostomy Performed By: #### 5 0103 ####[facility] Neutrophils/100 WBC (Bld) 67.1 % Normal 40.0-72.0 The [facility] Comment on above: Order Comment: Bleed ing s/p recent tracheostomy Performed By: #### 5 0103 ####[facility] Nucleated RBC/100 WBC (Bld) [Ratio] 0 % Normal 0-0 The [facility] Comment on above: Order Comment: Bleed ing s/p recent tracheostomy Performed By: #### 5 0103 ####[facility] PLAT CNT 328 10*3/uL Normal 150-400 The [facility] Comment on above: Order Comment: Bleed ing s/p recent tracheostomy Performed By: #### 5 0103 ####[facility]3000 [facility] [address], [facility] RBC (Bld) [#/Vol] 2.65 10*6/uL Low 3.80-5.00 The [facility] Comment on above: Order Comment: Bleed ing s/p recent tracheostomy Performed By: #### 5 0103 ####[facility]3000 [facility].[address] WBC (Bld) [#/Vol] 13.67 10*3/uL High 4.00-10.60 [facility] Comment on above: Order Comment: Bleed ing s/p recent tracheostomy Performed By: #### 5 0103 ####[facility]3000 [facility].[address] ABS IMM GRANS 0.2 10*3/uL Normal 0.0-0.2 The [facility] Comment on above: Performed By: #### 5 0103 ####[facility]3000 [facility].[address] ABS NEUTROPHILS 18.9 10*3/uL High 1.6-7.6 The [facility] Comment on above: Performed By: #### 5 0103 ####[facility]3000 [place] [address], [facility] Basophils (Bld) [#/Vol] 0.1 10*3/uL Normal 0.0-0.2 The [facility] Comment on above: Performed By: #### 5 3 ####[facility] [place] [address], [facility] Basophils/100 WBC (Bld) 0.4 % Normal 0.0-1.0 T jj [facility] Comment on above: Performed By: #### 5 0103 ####[facility]3000 [facility].[address] Eosinophils (Bld) [#/Vol] 0.4 10*3/uL Normal 0.0-0.5 The [facility] Comment on above: Performed By: #### 5 0103 ####[facility]3000 [facility].[address] Eosinophils/100 WBC (Bld) 1.7 % Normal 0.0-6.0 The [facility] Comment on above: Performed By: #### 5 3 ####[place] [id number] [address] Erythrocyte distribution width (RBC) [Ratio] 17.4 % High 11.5-15.0 The [facility] Comment on above: Performed By: #### 3 ####[facility] Hematocrit (Bld) [Volume fraction] 25.5 % Low 36.0-45.0 The [facility] Comment on above: Performed By: #### 5 3 ####[facility] Hemoglobin (Bld) [Mass/Vol] 8.1 g/dL Low 12.0-15.0 The [facility] Comment on above: Performed By: #### 3 ####[facility] IMMATURE GRANS 0.8 % Normal 0.0-1.0 The [facility] Comment on above: Performed By: #### 102 ####[address] Lymphocytes (Bld) [#/Vol] 2.8 10*3/uL Normal 1.2-4.0 The [facility] Comment on above: Performed By: #### 5 0103 ####[facility]3000 [place] [address], [facility] Lymphocytes/100 WBC (Bld) 11.7 % Low 20.0-45.0 The [facility] Comment on above: Performed By: #### 5 3 ####[facility]3000 [place] [address], [facility] MCH (RBC) [Entitic mass] 31.5 pg Normal 27.0-33.0 The [facility] Comment on above: Performed By: #### 5 3 ####[facility]3000 [facility].[address] MCHC (RBC) [Mass/Vol] 31.8 g/dL Low 32.0-35.0 The [facility] Comment on above: Performed By: #### 5 0103 ####[facility] [place] [address], [facility] MCV (RBC) [Entitic vol] 99.2 fL High 82.0-98.0 T [facility] Comment on above: Performed By: #### 5 3 ####[facility] [place] [address], [facility] Monocytes (Bld) [#/Vol] 1.5 10*3/uL High 0.1-1.0 The [facility] Comment on above: Performed By: #### 5 3 ####[facility] [place] [address], [facility] MONOS 6.2 % Normal 5.0-12.0 The [facility] Comment on above: Performed By: #### 5 3 ####[facility] [place] [address], [facility] Neutrophils/100 WBC (Bld) 79.2 % High 40.0-72.0 [facility] Comment on above: Performed By: #### 5 0103 ####[facility]3000 [facility].[address] Nucleated RBC/100 WBC (Bld) [Ratio] 0 % Normal 0-0 The [facility] Comment on above: Performed By: #### 5 0103 ####[facility]3000 [place] [address], [facility] PLAT CNT 538 10*3/uL High 150-400 [facility] Comment on above: Performed By: #### 5 0103 ####[facility]3000 [facility].[address] RBC (Bld) [#/Vol] 2.57 10*6/uL Low 3.80-5.00 [facility] Comment on above: Performed By: #### 5 0103 ####[facility]3000 [facility].[address] WBC (Bld) [#/Vol] 23.85 10*3/uL High 4.00-10.60 [facility] Comment on above: Performed By: #### 5 0103 ####[facility]3000 [facility].[address] COMP METABOLIC PANELon 08-20 Albumin [Mass/Vol] 2.5 g/dL Low 3.5-5.7 [facility] Comment on above: Performed By: #### 3 5200, 71728 ####[facility]3000 [facility].[address] ALKALINE PHOSPH 314 IU/L High 34-104 [facility] Comment on above: Performed By: #### 3 5200, 59341 ####[facility]3000 [facility].[address] ALT [Catalytic activity/Vol] 14 U/L Normal 7-52 The [facility] Comment on above: Performed By: #### 3 5199, 95180 ####[facility] [place] [address], [place] AST [Catalytic activity/Vol] 21 U/L Normal 13-39 The [facility] Comment on above: Performed By: #### 3 5199, 00409 ####[facility] [place] [address], [place] Bilirubin [Mass/Vol] 0.6 mg/dL Normal 0.3-1.0 The [facility] Comment on above: Performed By: #### 3 5199, 38735 ####[facility] [place] [address], [place] Calcium [Mass/Vol] 8.0 mg/dL Low 8.6-10.3 [facility] Comment on above: Performed By: #### 3 5199, 33345 ####[facility] [place] [address], [place] Chloride [Moles/Vol] 101 mmol/L Normal 98-107 The [facility] Comment on above: Performed By: #### 3 5199, 47450 ####[facility] [place] [address], [place] CO2 [Moles/Vol] 21 mmol/L Normal 21-31 [facility] Comment on above: Performed By: #### 3 5199, 43678 ####[facility] [place] [address], [place] Creatinine [Mass/Vol] 0.99 mg/dL Normal 0.60-1.20 The [facility] Comment on above: Performed By: #### 3 5199, 09750 ####[facility] [place] [address], [place] eGFR- non- 58 ml/min/1.73sq m Abnormal >60 The [facility] Comment on above: Performed By: #### 3 5199, 38939 ####[facility] [place] [address], [facility] GFR/1.73 sq M.predicted among blacks MDRD (S/P/Bld) [Vol rate/Area] mL/min/{1.73_m2} Normal >60 [facility] Comment on above: Performed By: #### 3 5199, 84802 ####[facility] [place] [address], [facility] Glucose [Mass/Vol] 280 mg/dL High 70-100 The [facility] Comment on above: Performed By: #### 3 5199, 39481 ####[facility] [place] [address], [place] Potassium [Moles/Vol] 4.1 mmol/L Normal 3.5-5.1 [facility] Comment on above: Performed By: #### 3 5199, 96619 ####[facility] [place] [address], [facility] Protein [Mass/Vol] 6.5 g/dL Normal 6.0-8.3 The [facility] Comment on above: Performed By: #### 3 5199, 92169 ####[facility] [place] [address], [place] Sodium [Moles/Vol] 134 mmol/L Low 136-145 The [facility] Comment on above: Performed By: #### 3 5199, 22377 ####[facility] [place] [address], [place] Urea nitrogen [Mass/Vol] 32 mg/dL High 7-25 The [facility] Comment on above: Performed By: #### 3 5199, 71604 ####[facility] CTA CHESTon 08-20-2021 CTA CHEST [facility] Department of Radiology [address] [place] [address] Patient Name: MEG GEORGES : 1965 Sex: F Age: Race: White Pt. Location: [facility] Patient Status: I Ordered Date: 08/19/2021 [...] report. Electronically signed: Charles Castillo. Transcribed by: [email or web address], User Resident: OLGA LIDIA WILLIS Electronically Signed by: CHARLES CASTILLO @ 08/20/2021 12:54 AM I personally read this/these film(s) with this resident Normal The [facility] Comment on above: Order Comment: R/O A telectasis CTA NECKon 08-20-2021 CTA NECK [facility] Department of Radiology [address] [place] [id number] Patient Name: MEG GEORGES : 1965 Sex: F Age: Race: White Pt. Location: [facility] Patient Status: I Ordered Date: 08/19/2021 [...] report. Electronically signed: Charles Castillo. Transcribed by: [email or web address], User Resident: OLGA LIDIA WILLIS Electronically Signed by: CHARLES CASTILLO @ 08/20/2021 12:51 AM I personally read this/these film(s) with this resident Normal The [facility] Comment on above: Order Comment: Bleed ing s/p recent tracheostomy Endoscopy Reporton Endoscopy Report MR#: [id number] [facility] Pt. Name: Meg Georges Surgery Date: 08/20/2021 Room #: [facility] [id number] Date of : 1965 PROCEDURE NOTE ATTENDING: [...] Pozo M.D. Date Trans: 08/20/2021 05:17 P/ [id number] cc: Johny Beckman M.D. [address] [facility] [address] Neri Santa D.O. [address] [place] [address]. [facility] [address] Normal The [facility] FIBRIN DEGRADATION PRODUCTon 08-20-2021 FSP 5 ug/ml Abnormal <5 ug/ml The [facility] Comment on above: Order Comment: No: D o not add to previous draw Performed By: #### 6 2594 #### [facility] [address] [facility] [address] FIBRINOGENon 08-20-2021 FIBRINOGEN 527 mg/dL High 150-425 [facility] Comment on above: Performed By: #### 6 2594 #### [facility] [address] [facility] [address] FRESH FROZEN PLASMA 6 UNITSo n 08-20-2021 PRODUCT CODE 1 E2701 Normal The [facility] Comment on above: Performed By: #### 8 7006 ####[facility]3000 [facility] PRODUCT CODE 2 E2701 Normal The [facility] Comment on above: Performed By: #### 8 7006 ####[facility]3000 [facility] PRODUCT CODE 3 E2701 Normal The [facility] Comment on above: Performed By: #### 8 7006 ####[facility] PRODUCT CODE 4 E7750 Normal The [facility] Comment on above: Performed By: #### 8 7006 ####[facility] [facility] [place] [address], [facility] PRODUCT CODE 5 E2701 Normal The [facility] Comment on above: Performed By: #### 8 7006 ####[facility] [facility] [place] [address], [facility] PRODUCT CODE 6 E2701 Normal The [facility] Comment on above: Performed By: #### 8 7006 ####[facility]3000 [facility].[address] PRODUCT STATUS 1 PT Normal The [facility] Comment on above: Result Comment: Resu lt changed by IF on 08/20/2021 13:26. The previous value was XM. Result changed by IF on 08/21/2021 00:30. The previous value was IS. Performed By: #### 8 7006 ####[facility]3000 [facility].[address] PRODUCT STATUS 2 RE Normal The [facility] Comment on above: Result Comment: Resu lt changed by IF on 08/20/2021 05:09. The previous value was XM. Result changed by IF on 08/20/2021 05:16. The previous value was XX. Performed By: #### 8 7006 ####[facility]3000 [facility].[address] PRODUCT STATUS 3 RE Normal The [facility] Comment on above: Result Comment: Resu lt changed by IF on 08/20/2021 05:24. The previous value was XM. Result changed by IF on 08/20/2021 05:48. The previous value was XX. Performed By: #### 8 7006 ####[facility] [place] [address], [facility] PRODUCT STATUS 4 RE Normal The [facility] Comment on above: Result Comment: Resu lt changed by IF on 08/22/2021 16:50. The previous value was XM. Result changed by IF on 08/25/2021 01:00. The previous value was XX. Performed By: #### 8 7006 ####[facility] [place] [address], [facility] PRODUCT STATUS 5 RE Normal The [facility] Comment on above: Result Comment: Resu lt changed by IF on 08/20/2021 05:24. The previous value was XM. Result changed by IF on 08/20/2021 05:48. The previous value was XX. Performed By: #### 8 7006 ####[facility] [place] [address], [facility] PRODUCT STATUS 6 RE Normal The [facility] Comment on above: Result Comment: Resu lt changed by IF on 08/20/2021 05:24. The previous value was XM. Result changed by IF on 08/20/2021 05:48. The previous value was XX. Performed By: #### 8 7006 ####[facility] [place] [address], [place] UNIT ABO 1 A Normal The [facility] Comment on above: Performed By: #### 8 7006 ####[facility] [place] [address], [place] Performed By: #### 8 9001 ####[facility] [place] [address], [place] UNIT ABO 2 A Normal The [facility] Comment on above: Performed By: #### 8 7006 ####[facility] [place] [address], [place] UNIT ABO 3 A Normal The [facility] Comment on above: Performed By: #### 8 7006 ####[facility] [place] [address], [place] UNIT ABO 4 A Normal [facility] Comment on above: Performed By: #### 8 7006 ####[facility] [place] [address], [facility] UNIT ABO 5 A Normal The [facility] Comment on above: Performed By: #### 8 7006 ####[facility] [place] [address], [facility] UNIT ABO 6 A Normal The [facility] Comment on above: Performed By: #### 8 7006 ####[facility] [place] [address], [facility] UNIT ID 1 [id number] Normal The [facility] Comment on above: Performed By: #### 8 7006 ####[facility] [place] [address], [facility] UNIT ID 2 [id number] Normal The [facility] Comment on above: Performed By: #### 8 7006 ####[facility] [place] [address], [facility] UNIT ID 3 [id number] Normal The [facility] Comment on above: Performed By: #### 8 7006 ####[facility] [place] [address], [facility] UNIT ID 4 [id number] Normal The [facility] Comment on above: Performed By: #### 8 7006 ####[facility] [place] [address], [facility] UNIT ID 5 [id number] Normal The [facility] Comment on above: Performed By: #### 8 7006 ####[facility] [place] [address], [facility] UNIT ID 6 [id number] Normal The [facility] Comment on above: Performed By: #### 8 7006 ####[facility] [place] [address], [facility] UNIT RH 1 Positive Normal The [facility] Comment on above: Performed By: #### 8 7006 ####[facility] [place] [address], [facility] Performed By: #### 8 9001 ####[facility] [place] [address], [place] UNIT RH 2 Positive Normal The [facility] Comment on above: Performed By: #### 8 7006 ####[facility] [place] [address], [facility] UNIT RH 3 Positive Normal The [facility] Comment on above: Performed By: #### 8 7006 ####[facility] [place] [address], [facility] UNIT RH 4 Positive Normal The [facility] Comment on above: Performed By: #### 8 6 ####[facility] [place] [address], [facility] UNIT RH 5 Positive Normal The [facility] Comment on above: Performed By: #### 8 7006 ####[facility] [place] [address], [facility] UNIT RH 6 Positive Normal The [facility] Comment on above: Performed By: #### 8 7006 ####[facility] [place] [address], [place] LACTATE BLOODon 08-20-2021 Lactate [Moles/Vol] 1.3 mmol/L Normal .5-2.2 [facility] Comment on above: Performed By: #### 6 2594 #### [facility] [address] [place] [address], [place] LIVER BATTERYon 08-20-2021 Albumin [Mass/Vol] 1.8 g/dL Low 3.5-5.7 [facility] Comment on above: Order Comment: Check NG Tube Position Performed By: #### 1 0070, 80557, 24130, 07295 ####[facility] [place] [address], [facility] ALKALINE PHOSPH 171 IU/L High 34-104 [facility] Comment on above: Order Comment: Check NG Tube Position Performed By: #### 1 0070, 22939, 17209, 72554 ####[facility] [place] [address], [facility] ALT [Catalytic activity/Vol] 10 U/L Normal 7-52 [facility] Comment on above: Order Comment: Check NG Tube Position Performed By: #### 1 0070, 47275, 29741, 80962 ####[facility] [place] [address], [facility] AST [Catalytic activity/Vol] 12 U/L Low 13-39 [facility] Comment on above: Order Comment: Check NG Tube Position Performed By: #### 1 0070, 67257, 92617, 21318 ####[facility] [place] [address], [place] Bilirubin [Mass/Vol] 0.4 mg/dL Normal 0.3-1.0 [facility] Comment on above: Order Comment: Check NG Tube Position Performed By: #### 1 0070, 77063, 29816, 89587 ####[facility] [id number], [facility] Bilirubin.direct [Mass/Vol] 0.1 mg/dL Normal 0.0-0.2 [facility] Comment on above: Order Comment: Check NG Tube Position Performed By: #### 1 0070, 99492, 01424, 74734 ####[facility] Protein [Mass/Vol] 4.6 g/dL Low 6.0-8.3 [facility] Comment on above: Order Comment: Check NG Tube Position Performed By: #### 1 0070, 26006, 46212, 84175 ####[facility] [facility] [address], [facility] MAGNESIUM BLOODon 08-20-2021 Magnesium [Mass/Vol] 1.4 mg/dL Low 1.9-2.7 [facility] Comment on above: Order Comment: Check NG Tube Position Performed By: #### 1 0070, 10436, 75628, 20328 ####[facility] [facility].[address] OSMOLALITY BLOODon 2 Osmolality [Osmolality] 309 mosm/kg High 285-305 [facility] Comment on above: Order Comment: No: D o not add to previous draw Performed By: #### 6 2594 #### [facility] [address] [facility] [address], [facility] PHOSPHORUS BLOODon 2 Phosphate [Mass/Vol] 2.4 mg/dL Low 2.5-5.0 [facility] Comment on above: Order Comment: Check NG Tube Position Performed By: #### 1 0070, 75771, 40400, 79207 ####[facility] [facility].[address] PLATELET APHERESIS 1 UNITon 08-20-2021 PRODUCT CODE 1 E8341 Normal [facility] Comment on above: Performed By: #### 8 9001 ####[facility] [facility].[address] UNIT ID 1 [id number] Normal [facility] Comment on above: Performed By: #### 8 9001 ####[facility] [place] [address], [facility] PRODUCT STATUS 1 RE Normal The [facility] Comment on above: Result Comment: Resu lt changed by IF on 08/21/2021 01:00. The previous value was XM. Performed By: #### 8 9001 ####[facility] [place] [address], [facility] Result Comment: Resu lt changed by IF on 08/21/2021 08:54. The previous value was XM. Result changed by IF on 08/21/2021 18:31. The previous value was XX. Performed By: #### 8 6006 ####[facility] [place] [address], [facility] POC GLUCOSE LABon 08-20-2021 Glucose [Mass/Vol] 118 mg/dL High 70-100 The [facility] Comment on above: Performed By: #### 8 5499 ####[facility] [place] [address], [facility] Glucose [Mass/Vol] 142 mg/dL High 70-100 The [facility] Comment on above: Performed By: #### 8 5499 ####[place] [address] [place] [address], [facility] Glucose [Mass/Vol] 160 mg/dL High 70-100 The [facility] Comment on above: Performed By: #### 8 5499 ####[place] [address] [place] [address], [facility] Glucose [Mass/Vol] 177 mg/dL High 70-100 The [facility] Comment on above: Performed By: #### 8 5499 ####[place] [address] [place] [address], [facility] POC SARS COV2 ANTIGEN NEGATI VEon 08-20-2021 POC SARS COV2 ANTIGEN NEG Negative Normal NEGATIVE [facility] Comment on above: Result Comment: Nega tive [...] antigen from SARS-CoV-2 in direct nasopharyngeal swab ([employer]) specimens from individuals who are suspected of [...] Accreditation. Performed By: #### 3 2044 #### [address] PORTABLE CHEST 1 VIEWon PORTABLE CHEST 1 VIEW [facility] Department of Radiology [address] [place] [phone] Patient Name: MEG GEORGES : 1965 Sex: F Age: Race: White Pt. Location: [id number] Patient Status: I Ordered Date: 08/20/2021 5:20:00 [...] FINDINGS: Enteric tube tip outside the inferior cojay-cf-wphj, presumably within the stomach. Stable tracheostomy cannula. Stable cardiomediastinal silhouette. No new focal consolidation, significant effusion, or pneumothorax. Right upper extremity PICC, its tip at the mid SVC. IMPRESSION: Enteric tube tip likely within the stomach, outside the inferior osybl-ul-dxkw however Electronically signed: KIKE DICKSON. Transcribed by: [email or web address], User Resident: Electronically Signed by: KIKE DICKSON @ 08/20/2021 07:46 PM Normal [facility] Comment on above: Order Comment: Check NG Tube Position PORTABLE CHEST 1 VIEW [facility] Department of Radiology [address] [place] [phone] Patient Name: MEG GEORGES : 1965 Sex: F Age: Race: White Pt. Location: [place] [address] Patient Status: I Ordered Date: 08/20/2021 7:50:00 [...] indeterminate. Electronically signed: Blossom Gongora. Transcribed by: [email or web address], User Resident: BLOSSOM GONGORA Electronically Signed by: BLOSSOM GONGORA @ 08/20/2021 09:10 AM I personally read this/these film(s) with this resident Normal [facility] Comment on above: Order Comment: evalu ate for Atelectasis PORTABLE CHEST 1 VIEW [facility] Department of Radiology [address] [place] [phone] Patient Name: MEG GEORGES : 1965 Sex: F Age: Race: White Pt. Location: [facility] Patient Status: E Ordered Date: 08/19/2021 [...] abnormality. Electronically signed: Darci Monahan. Transcribed by: [email or web address], User Resident: Electronically Signed by: DARCI MONAHAN @ 08/19/2021 10:41 PM Normal [facility] Comment on above: Order Comment: Check NG Tube Position PROTHROMBIN TIMEon INR Coag (PPP) [Relative time] 1.70 {INR} High 0.91-1.16 [facility] Comment on above: Order Comment: Check [...] CHEST 1995;108:231S-246S. Performed By: #### 5 6101 ####[facility] [place] [address], [facility] PT Coag (PPP) [Time] 19.7 s High 12.3-14.8 [facility] Comment on above: Order Comment: Check NG Tube Position Result Comment: ALL RESULTS MUST BE INTERPRETED WITH RESPECT TO BLOOD DRAWING ARTIFACT OR DILUTION ERROR OF ANTICOAGULANT AT THE TIME OF SAMPLING. Performed By: #### 5 6101 ####[facility] [place] [address], [facility] INR Coag (PPP) [Relative time] 1.47 {INR} High 0.91-1.16 [facility] Comment on above: Result Comment: ACCC P [...] CHEST 1995;108:231S-246S. Performed By: #### 5 6788, 30539, 09837, 54184 ####[facility] [facility].[address] PT Coag (PPP) [Time] 17.7 s High 12.3-14.8 [facility] Comment on above: Result Comment: ALL RESULTS MUST BE INTERPRETED WITH RESPECT TO BLOOD DRAWING ARTIFACT OR DILUTION ERROR OF ANTICOAGULANT AT THE TIME OF SAMPLING. Performed By: #### 5 6788, 63909, 01327, 07652 ####[facility] [place] [address], [facility] RBC'S 6 UNITSon 08-20-2021 CROSSMATCH INTERP 1 COMP Normal The [facility] Comment on above: Performed By: #### 8 6006 ####[facility] [place] [address], [facility] CROSSMATCH INTERP 2 COMP Normal The [facility] Comment on above: Performed By: #### 8 6006 ####[facility] [facility].[address] CROSSMATCH INTERP 3 COMP Normal The [facility] Comment on above: Performed By: #### 8 6006 ####[facility] [place] [address], [facility] CROSSMATCH INTERP 4 COMP Normal The [facility] Comment on above: Performed By: #### 8 6006 ####[facility] [place] [address], [facility] CROSSMATCH INTERP 5 COMP Normal The [facility] Comment on above: Performed By: #### 8 6006 ####[facility] [place] [address], [facility] CROSSMATCH INTERP 6 COMP Normal The [facility] Comment on above: Performed By: #### 8 6006 ####[facility] [place] [address], [facility] PRODUCT CODE 1 E0336 Normal The [facility] Comment on above: Performed By: #### 8 6006 ####[facility] [place] [address], [facility] PRODUCT CODE 2 E0336 Normal The [facility] Comment on above: Performed By: #### 8 6006 ####[facility] [place] [address], [facility] PRODUCT CODE 3 E0336 Normal The [facility] Comment on above: Performed By: #### 8 6006 ####[facility] [place] [address], [facility] PRODUCT CODE 4 E0336 Normal The [facility] Comment on above: Performed By: #### 8 6006 ####[facility] [place] [address], [facility] PRODUCT CODE 5 E0336 Normal The [facility] Comment on above: Performed By: #### 8 6006 ####[facility] [place] [address], [facility] PRODUCT CODE 6 E0336 Normal The [facility] Comment on above: Performed By: #### 8 6006 ####[facility] [place] [address], [facility] PRODUCT STATUS 2 RE Normal The [facility] Comment on above: Result Comment: Resu lt changed by IF on 08/20/2021 05:40. The previous value was XM. Result changed by IF on 08/20/2021 05:48. The previous value was XX. Performed By: #### 8 6006 ####[facility] [place] [address], [facility] PRODUCT STATUS 3 RE Normal The [facility] Comment on above: Result Comment: Resu lt changed by IF on 08/22/2021 01:00. The previous value was XM. Performed By: #### 8 6006 ####[facility] [place] [address], [facility] PRODUCT STATUS 4 RE Normal The [facility] Comment on above: Result Comment: Resu lt changed by IF on 08/20/2021 05:40. The previous value was XM. Result changed by IF on 08/20/2021 05:48. The previous value was XX. Performed By: #### 8 6006 ####[facility] [place] [address], [place] PRODUCT STATUS 5 RE Normal The [facility] Comment on above: Result Comment: Resu lt changed by IF on 08/22/2021 01:00. The previous value was XM. Performed By: #### 8 6006 ####[facility] [place] [address], [place] PRODUCT STATUS 6 RE Normal The [facility] Comment on above: Result Comment: Resu lt changed by IF on 08/21/2021 08:54. The previous value was XM. Result changed by IF on 08/22/2021 01:00. The previous value was XX. Performed By: #### 8 6006 ####[facility] [place] [address], [place] UNIT ABO 1 A Normal [facility] Comment on above: Performed By: #### 8 6006 ####[facility] [place] [address], [place] UNIT ABO 2 A Normal [facility] Comment on above: Performed By: #### 8 6006 ####[facility] [place] [address], [place] UNIT ABO 3 A Normal [facility] Comment on above: Performed By: #### 8 6006 ####[facility] [place] [address], [place] UNIT ABO 4 A Normal [facility] Comment on above: Performed By: #### 8 6006 ####[facility] [place] [address], [facility] UNIT ABO 5 A Normal [facility] Comment on above: Performed By: #### 8 6006 ####[facility] [place] [address], [facility] UNIT ABO 6 A Normal [facility] Comment on above: Performed By: #### 8 6006 ####[facility] [place] [address], [facility] UNIT ID 1 [id number] Normal The [facility] Comment on above: Performed By: #### 8 6006 ####[facility] [place] [address], [facility] UNIT ID 2 [id number] Normal The [facility] Comment on above: Performed By: #### 8 6006 ####[facility] [place] [address], [facility] UNIT ID 3 [id number] Normal The [facility] Comment on above: Performed By: #### 8 6006 ####[facility] [place] [address], [facility] UNIT ID 4 [id number] Normal The [facility] Comment on above: Performed By: #### 8 6006 ####[facility] [place] [address], [facility] UNIT ID 5 [id number] Normal The [facility] Comment on above: Performed By: #### 8 6006 ####[facility] [place] [address], [facility] UNIT ID 6 [id number] Normal [facility] Comment on above: Performed By: #### 8 6006 ####[facility] [place] [address], [facility] UNIT RH 1 Positive Normal [facility] Comment on above: Performed By: #### 8 6006 ####[facility] [place] [address], [facility] UNIT RH 2 Positive Normal [facility] Comment on above: Performed By: #### 8 6006 ####[facility] [place] [address], [facility] UNIT RH 3 Positive Normal [facility] Comment on above: Performed By: #### 8 6006 ####[facility] [place] [address], [facility] UNIT RH 4 Positive Normal [facility] Comment on above: Performed By: #### 8 6006 ####[facility] [place] [address], [facility] UNIT RH 5 Positive Normal [facility] Comment on above: Performed By: #### 8 6006 ####[facility] [facility] [address], [facility] UNIT RH 6 Positive Normal [facility] Comment on above: Performed By: #### 8 6006 ####[facility] [facility] [address], [facility] TRIGLYCERIDES BLOODon 2021 Triglyceride [Mass/Vol] 147 mg/dL Normal 40-149 T he [facility] Comment on above: Order Comment: No: D o not add to previous draw Result Comment: TRIG LYCERIDE REFERENCE RANGE: 20 YEARS AND OLDER CARDIOVASCULAR RISK LESS THAN 150 mg/dl LOW RISK 150 TO 199 mg/dl BORDERLINE RISK 200 mg/dl AND GREATER HIGH RISK Performed By: #### 6 2594 #### [facility] [address] [address], [facility] TROPONIN-Ion 08-20-2021 Troponin I.cardiac [Mass/Vol] 0.03 ng/mL Normal 0.00-0.04 [facility] Comment on above: Result Comment: REFE RENCE RANGES: 0.00 - 0.04 ng/ml NORMAL 0.05 - 0.50 ng/ml INDETERMINATE > 0.50 ng/ml CONSISTENT WITH AN M.I. Performed By: #### 3 5200, 31193 ####[facility] [place] [address], [facility] TYPE AND CROSSMATCHon 2021 ABO INTERPRETATION A Normal The [facility] Comment on above: Performed By: #### 6 2594 #### [facility] [address] [place] [address], [facility] RH INTERPRETATION Positive Normal [facility] Comment on above: Performed By: #### 6 2594 #### [facility] [address] [place] [address], [facility] rbc emergency releaseon 07-0 CROSSMATCH INTERP 1 COMP Normal The [facility] Comment on above: Performed By: #### R BCER ####[facility] [place] [address], [facility] CROSSMATCH INTERP 2 COMP Normal The [facility] Comment on above: Result Comment: This result added by IF on 08/20/2021 02:44. Performed By: #### R BCER ####[facility] [place] [address], [facility] CROSSMATCH INTERP 3 COMP Normal The [facility] Comment on above: Result Comment: This result added by IF on 08/20/2021 02:44. Performed By: #### R BCER ####[facility] [place] [address], [facility] PRODUCT CODE 1 E0685 Normal The [facility] Comment on above: Performed By: #### R BCER ####[facility] [place] [address], [facility] PRODUCT CODE 2 E0336 Normal The [facility] Comment on above: Performed By: #### R BCER ####[facility] [facility] [address], [facility] PRODUCT CODE 3 E0685 Normal The [facility] Comment on above: Performed By: #### R BCER ####[facility] [place] [address], [facility] PRODUCT STATUS 1 PT Normal The [facility] Comment on above: Result Comment: Resu lt changed by IF on 08/20/2021 02:42. The previous value was EI. Result changed by IF on 08/21/2021 00:30. The previous value was PI. Performed By: #### R BCER ####[facility] [facility].[address] PRODUCT STATUS 2 PT Normal The [facility] Comment on above: Result Comment: Resu lt changed by IF on 08/20/2021 02:44. The previous value was EI. Result changed by IF on 08/21/2021 00:30. The previous value was PI. Performed By: #### R BCER ####[facility] [place] [address], [facility] PRODUCT STATUS 3 PT Normal The [facility] Comment on above: Result Comment: Resu lt changed by IF on 08/20/2021 02:44. The previous value was EI. Result changed by IF on 08/21/2021 00:30. The previous value was PI. Performed By: #### R BCER ####[facility] [place] [address], [facility] UNIT ABO 1 O Normal [facility] Comment on above: Performed By: #### R BCER ####[facility] [place] [address], [facility] UNIT ABO 2 O Normal [facility] Comment on above: Performed By: #### R BCER ####[facility] [place] [address], [facility] UNIT ABO 3 O Normal [facility] Comment on above: Performed By: #### R BCER ####[facility] [place] [address], [facility] UNIT ID 1 [id number] Normal The [facility] Comment on above: Performed By: #### R BCER ####[facility] [place] [address], [facility] UNIT ID 2 [id number] Normal The [facility] Comment on above: Performed By: #### R BCER ####[facility] [facility] [place] [address], [facility] UNIT ID 3 [id number] Normal The [facility] Comment on above: Performed By: #### R BCER ####[facility] [place] [address], [facility] UNIT RH 1 Negative Normal [facility] Comment on above: Performed By: #### R BCER ####[facility] [place] [address], [facility] UNIT RH 2 Negative Normal [facility] Comment on above: Performed By: #### R BCER ####[facility] [place] [address], [facility] UNIT RH 3 Negative Normal [facility] Comment on above: Performed By: #### R BCER ####[facility] [place] [address], [place] CT BRAIN WO CONTRASTon 08-15 CT BRAIN WO CONTRAST [facility] Department of Radiology [address] [place] [address] Patient Name: MEG GEORGES : 1965 Sex: F Age: Race: White Pt. Location: [facility] Patient Status: Ordered Date: 08/15/2021 12:05:00 PM Completed Date: 08/15/2021 04:06 PM Requesting Provider: GANGA SAVAGE Attending Provider: Report Copy To: Signs & Symptoms: R/O Bleed History: Order in [facility] [phone] Trach/vent Comments: Exam: CT BRAIN WO CONTRAST [...] findings. Electronically signed: Angel Beal. Transcribed by: [email or web address], User Resident: Electronically Signed by: ANGEL BEAL @ 08/15/2021 04:12 PM Normal [facility] Basic Metabolic Panel w/ Ref rafael to MGon 08-10-2021 Anion gap [Moles/Vol] 11 mmol/L 9 - 17 mmol/L [facility] Calcium [Mass/Vol] 8.5 mg/dL Low 8.6 - 10. 4 mg/dL [facility] Chloride [Moles/Vol] 107 mmol/L 98 - 10 7 mmol/L [facility] CO2 [Moles/Vol] 24 mmol/L 20 - 31 mmol/L [facility] Creatinine [Mass/Vol] 0.54 mg/dL 0.50 - 0.90 mg/dL [facility] GFR >60 >60 mL/min [facility] GFR Non- >60 >60 mL/min [facility] GFR/1.73 sq M.predicted MDRD (S/P/Bld) [Vol rate/Area] [facility] Glucose [Mass/Vol] 150 mg/dL High 70 - 99 mg/dL [facility] Interpretation and review of laboratory results Abnormal [facility] Potassium [Moles/Vol] 3.3 mmol/L Low 3.7 - 5.3 mmol/L [facility] Sodium [Moles/Vol] 142 mmol/L 135 - 144 mmol/L [facility] Urea nitrogen (BldV) [Mass/Vol] 11 mg/dL 6 - 20 mg/dL [facility] CBC with Auto Differentialon 08-10-2021 Absolute Eos # 0.[address] [facility] [facility] Absolute Immature Granulocyte <0.[address] [facility] Absolute Lymph # 2.27 [facility] Absolute [place] # 0.58 [facility] [facility] Basophils (Bld) [#/Vol] 0.05 10*3/uL [facility] Basophils/100 WBC (Bld) 1 % 0 - 2 % B [facility] Eosinophils/100 WBC (Bld) 5 % High 1 - 4 % [facility] Hematocrit (Bld) [Volume fraction] 28.0 % Low 36.3 - 47.1 % [facility] Hemoglobin (Bld) [Mass/Vol] 8.9 g/dL Low 11.9 - 15.1 g/dL [facility] Immature granulocytes/100 WBC (Bld) 0 % 0 [facility] Interpretation and review of laboratory results Abnormal [facility] Lymphocytes/100 WBC (Bld) 25 % 24 - 43 % [facility] MCH (RBC) [Entitic mass] 31.3 pg 25.2 - 33.5 pg [facility] MCHC (RBC) [Mass/Vol] 31.8 g/dL 28.4 - 34.8 g/dL [facility] MCV (RBC) [Entitic vol] 98.6 fL 82.6 - 102.9 fL [facility] Monocytes/100 WBC (Bld) 7 % 3 - 12 % B ON [facility] NRBC Automated 0.0 0.0 per 100 WBC [facility] Platelet distribution width (Bld) [Ratio] 17.5 % High 11.8 - 14.4 % [facility] Platelet mean volume (Bld) [Entitic vol] 8.8 fL 8.1 - 13.5 fL [facility] Platelets (Bld) [#/Vol] 576 10*3/uL High [facility] RBC (Bld) [#/Vol] 2.84 10*6/uL Low 3.95 - 5.1 1 m/uL [facility] RBC (Bld) [#/Vol] ANISOCYTOSIS PRESENT [facility] Seg Neutrophils 62 % 36 - 65 % [facility] Segs Absolute 5.62 [facility] WBC (Bld) [#/Vol] 9.0 10*3/uL [facility] Magnesiumon 08-10-2021 Magnesium [Mass/Vol] 1.8 mg/dL 1.6 - 2 .6 mg/dL [facility] Glucose Fingerstickon Glucose [Mass/Vol] 188 mg/dL High 65 - 105 mg/dL [facility] Interpretation and review of laboratory results Abnormal [facility] Glucose [Mass/Vol] 218 mg/dL High 65 - 105 mg/dL [facility] Interpretation and review of laboratory results Abnormal [facility] Glucose [Mass/Vol] 133 mg/dL High 65 - 105 mg/dL [facility] Interpretation and review of laboratory results Abnormal [facility] POC Glucose Fingerstickon Glucose [Mass/Vol] 204 mg/dL High 65 - 105 mg/dL [facility] Interpretation and review of laboratory results Abnormal [facility] Glucose [Mass/Vol] 184 mg/dL High 65 - 105 mg/dL [facility] Interpretation and review of laboratory results Abnormal [facility] Glucose [Mass/Vol] 202 mg/dL High 65 - 105 mg/dL [facility] Interpretation and review of laboratory results Abnormal [facility] Glucose [Mass/Vol] 126 mg/dL High 65 - 105 mg/dL [facility] Interpretation and review of laboratory results Abnormal [facility] [employer], [facility] Basic Metabolic Panel w/ Ref rafael to MGon 08-08-2021 Anion gap [Moles/Vol] 11 mmol/L 9 - 17 mmol/L [facility] [employer], [facility] Calcium [Mass/Vol] 7.9 mg/dL Low 8.6 - 10. 4 mg/dL [facility] [employer], [facility] Chloride [Moles/Vol] 108 mmol/L High 98 - 10 7 mmol/L [facility] CO2 [Moles/Vol] 22 mmol/L 20 - 31 mmol/L [facility] [employer], [facility] Creatinine [Mass/Vol] 0.59 mg/dL 0.50 - 0.90 mg/dL [facility] [employer], [facility] GFR >60 >60 mL/min [facility] [employer], [facility] GFR Non- >60 >60 mL/min [facility] GFR/1.73 sq M.predicted MDRD (S/P/Bld) [Vol rate/Area] [facility] Glucose [Mass/Vol] 193 mg/dL High 70 - 99 mg/dL [facility] Interpretation and review of laboratory results Abnormal [facility] Potassium [Moles/Vol] 3.8 mmol/L 3.7 - 5.3 mmol/L [facility] Sodium [Moles/Vol] 141 mmol/L 135 - 144 mmol/L [facility] Urea nitrogen (BldV) [Mass/Vol] 11 mg/dL 6 - 20 mg/dL [facility] CBC with Auto Differentialon 08-08-2021 Absolute Eos # 0.[address] [facility] Absolute Immature Granulocyte 0.04 [facility] Absolute Lymph # 2.17 [facility] Absolute [place] # 0.64 [facility] Basophils (Bld) [#/Vol] 0.04 10*3/uL [facility] Basophils/100 WBC (Bld) 0 % 0 - 2 % B ON [facility] Eosinophils/100 WBC (Bld) 3 % 1 - 4 % [facility] Hematocrit (Bld) [Volume fraction] 24.6 % Low 36.3 - 47.1 % [facility] Hemoglobin (Bld) [Mass/Vol] 8.0 g/dL Low 11.9 - 15.1 g/dL [facility] Immature granulocytes/100 WBC (Bld) 0 % 0 [facility] Interpretation and review of laboratory results Abnormal [facility] Lymphocytes/100 WBC (Bld) 23 % Low 24 - 43 % [facility] MCH (RBC) [Entitic mass] 31.7 pg 25.2 - 33.5 pg [facility] MCHC (RBC) [Mass/Vol] 32.5 g/dL 28.4 - 34.8 g/dL [facility] MCV (RBC) [Entitic vol] 97.6 fL 82.6 - 102.9 fL [facility] Monocytes/100 WBC (Bld) 7 % 3 - 12 % B ON [facility] NRBC Automated 0.0 0.0 per 100 WBC [facility] [employer] Platelet distribution width (Bld) [Ratio] 17.8 % High 11.8 - 14.4 % [facility] [employer] Platelet mean volume (Bld) [Entitic vol] 8.9 fL 8.1 - 13.5 fL [facility] [employer] Platelets (Bld) [#/Vol] 514 10*3/uL High [facility] [employer] RBC (Bld) [#/Vol] 2.52 10*6/uL Low 3.95 - 5.1 1 m/uL [facility] RBC (Bld) [#/Vol] ANISOCYTOSIS PRESENT [facility] [employer] Seg Neutrophils 67 % High 36 - 65 % [facility] [employer] Segs Absolute 6.36 [facility] [employer] WBC (Bld) [#/Vol] 9.5 10*3/uL [facility] [employer] [facility]ASELI [facility] [employer] EKG 12 LeadOrdered By: Armando Galloway on 08-08-2021 Atrial Rate 90 BPM [employer] [facility] [employer] Work Phone: P [place] 43 degrees [employer] [facility] [employer] Work Phone: P-R Interval 122 ms [employer] Work Phone: Q-T Interval 374 ms [employer] [facility] [employer] Work Phone: QRS Duration 78 ms [facility] [employer] Work Phone: QTc Calculation (Bazett) 457 ms [employer] [facility] [employer] Work Phone: R [place] -4 degrees [employer] [facility] [employer] Work Phone: T [place] 51 degrees [employer] [facility] [employer] Work Phone: Ventricular Rate 90 BPM [facility] [employer] Work Phone: [employer] [facility] [employer] Work Phone: EKG 12 Leadon 08-08-2021 MHPN STV MUSE [employer] [facility] [employer] Work Phone: POC Glucose Fingerstickon Glucose [Mass/Vol] [...] Interpretation and review of laboratory results Abnormal [facility] Glucose Fingerstickon Glucose [Mass/Vol] 206 mg/dL High 65 - 105 mg/dL [facility] Interpretation and review of laboratory results Abnormal [facility] Glucose [Mass/Vol] 202 mg/dL High 65 - 105 mg/dL [facility] Interpretation and review of laboratory results Abnormal [facility] [...] 150 mg/dL High 65 - 105 mg/dL [facility] Interpretation and review of laboratory results Abnormal [facility] Glucose [Mass/Vol] 153 mg/dL High 65 - 105 mg/dL [facility] Interpretation and review of laboratory results Abnormal [facility] TSHon 08-07-2021 Interpretation and review of laboratory results Abnormal [facility] TSH Qn 7.90 m[IU]/L High [employer] XR CERVICAL SPINE FLEXION AN D EXTENSIONon 08-07-2021 MHPN RIS CONSOLIDATED MHPN RIS CONSOLIDATED [employer] Work Phone: Radiology Study observation (narrative) ARASELI [employer] Orange RoboticsMercy DrAvailable Work Phone: XR CERVICAL SPINE FLEXION AN D EXTENSIONOrdered By: Paramjit Saenz on 08-07-2021 [employer] Work Phone: Basic Metabolic Panel w/ Ref rafael to MGon 08-06-2021 Anion gap [Moles/Vol] 11 mmol/L 9 - 17 mmol/L [employer] Calcium [Mass/Vol] 8.5 mg/dL Low 8.6 - 10. 4 mg/dL [employer] [facility]ITALAl[facility] Limited Chloride [Moles/Vol] 109 mmol/L High 98 - 10 7 mmol/L [employer] [facility]ITAL[facility] CO2 [Moles/Vol] 23 mmol/L 20 - 31 mmol/L [employer] [facility]ITAL[facility] Creatinine [Mass/Vol] 0.55 mg/dL 0.50 - 0.90 mg/dL [employer] GFR >60 >60 mL/min [employer] GFR Non- >60 >60 mL/min [employer] [facility]ITALAl[facility] GFR/1.73 sq M.predicted MDRD (S/P/Bld) [Vol rate/Area] [employer] Glucose [Mass/Vol] 48 mg/dL Low 70 - 99 mg/dL [employer] [facility]ITALAl[facility] Interpretation and review of laboratory results Abnormal [employer] [facility]ITAL[facility] Potassium [Moles/Vol] 3.6 mmol/L Low 3.7 - 5.3 mmol/L [employer] [facility] Sodium [Moles/Vol] 143 mmol/L 135 - 144 mmol/L [employer] [facility]ITAL[facility] Urea nitrogen (BldV) [Mass/Vol] 11 mg/dL 6 - 20 mg/dL [facility]ITALMacuLogix [facility]ITALAl[facility] CBC with Auto Differentialon 08-06-2021 Absolute Eos # 0.28 [facility] [employer] Absolute Immature Granulocyte 0.07 [employer] [facility]ITALAl[facility] Absolute Lymph # 2.04 [facility] Absolute [place] # 0.61 [facility] Basophils (Bld) [#/Vol] 0.04 10*3/uL [facility] Basophils/100 WBC (Bld) 0 % 0 - 2 % B ON [facility] Eosinophils/100 WBC (Bld) 2 % 1 - 4 % [facility] Hematocrit (Bld) [Volume fraction] 26.3 % Low 36.3 - 47.1 % [facility] Hemoglobin (Bld) [Mass/Vol] 8.6 g/dL Low 11.9 - 15.1 g/dL [facility] Immature granulocytes/100 WBC (Bld) 1 % High 0 [facility] Interpretation and review of laboratory results Abnormal [facility] Lymphocytes/100 WBC (Bld) 17 % Low 24 - 43 % [facility] MCH (RBC) [Entitic mass] 31.9 pg 25.2 - 33.5 pg [facility] MCHC (RBC) [Mass/Vol] 32.7 g/dL 28.4 - 34.8 g/dL [facility] MCV (RBC) [Entitic vol] 97.4 fL 82.6 - 102.9 fL [facility] Monocytes/100 WBC (Bld) 5 % 3 - 12 % B ON [facility] NRBC Automated 0.0 0.0 per 100 WBC [facility] Platelet distribution width (Bld) [Ratio] 18.0 % High 11.8 - 14.4 % [facility] Platelet mean volume (Bld) [Entitic vol] 8.4 fL 8.1 - 13.5 fL [facility] Platelets (Bld) [#/Vol] 565 10*3/uL High [facility] RBC (Bld) [#/Vol] 2.70 10*6/uL Low 3.95 - 5.1 1 m/uL [facility] RBC (Bld) [#/Vol] ANISOCYTOSIS PRESENT [facility] Seg Neutrophils 75 % High 36 - 65 % [facility] Segs Absolute 9.28 High [facility] WBC (Bld) [#/Vol] 12.3 10*3/uL High [facility] No Panel Informationon 08-06 Interpretation and review of laboratory results Abnormal [facility] POC Glucose Fingerstickon Glucose [Mass/Vol] 158 mg/dL High 65 - 105 mg/dL [facility] Interpretation and review of laboratory results Abnormal [facility] Glucose [Mass/Vol] 125 mg/dL High 65 - 105 mg/dL [facility] Interpretation and review of laboratory results Abnormal [facility] Glucose [Mass/Vol] 128 mg/dL High 65 - 105 mg/dL [facility] Interpretation and review of laboratory results Abnormal [facility] Glucose [Mass/Vol] 106 mg/dL High 65 - 105 mg/dL [facility] Interpretation and review of laboratory results Abnormal [facility] Glucose [Mass/Vol] 109 mg/dL High 65 - 105 mg/dL [facility] Interpretation and review of laboratory results Abnormal [facility] Glucose [Mass/Vol] 39 mg/dL Critically low 65 - 10 5 mg/dL [facility] Interpretation and review of laboratory results Abnormal [facility] Glucose [Mass/Vol] 43 mg/dL Low 65 - 105 mg/dL [facility] Glucose [Mass/Vol] 116 mg/dL High 65 - 105 mg/dL [facility] Arterial Blood Gas, POCon FIO2 30.0 [facility] HCO3 (Bld) [Moles/Vol] 26.0 mmol/L 21.0 - 28.0 mmol/L [facility] O2 Device/Flow/% Adult Ventilator [facility] Oxygen saturation in Blood 99 % High 94.0 - 98.0 % [facility] POC pCO2 38.7 [facility] POC pH 7.435 [facility] POC PO2 112.3 High [facility] Positive Base Excess, Art 2 [facility] Sample Site Arterial Line [facility] Basic Metabolic Panel w/ Ref rafael to MGon 08-05-2021 Anion gap [Moles/Vol] 11 mmol/L 9 - 17 mmol/L [facility] Calcium [Mass/Vol] 8.5 mg/dL Low 8.6 - 10. 4 mg/dL [facility] Chloride [Moles/Vol] 109 mmol/L High 98 - 10 7 mmol/L [facility] CO2 [Moles/Vol] 23 mmol/L 20 - 31 mmol/L [facility] Creatinine [Mass/Vol] 0.53 mg/dL 0.50 - 0.90 mg/dL [facility] GFR >60 >60 mL/min [facility] GFR Non- >60 >60 mL/min [facility] GFR/1.73 sq M.predicted MDRD (S/P/Bld) [Vol rate/Area] [facility] Glucose [Mass/Vol] 121 mg/dL High 70 - 99 mg/dL [facility] Interpretation and review of laboratory results Abnormal [facility] Potassium [Moles/Vol] 3.5 mmol/L Low 3.7 - 5.3 mmol/L [facility] Sodium [Moles/Vol] 143 mmol/L 135 - 144 mmol/L [facility] Urea nitrogen (BldV) [Mass/Vol] 14 mg/dL 6 - 20 mg/dL [facility] CBC with Auto Differentialon 08-05-2021 Absolute Eos # 0.[address] [facility] Absolute Immature Granulocyte 0.05 [facility] Absolute Lymph # 1.83 [facility] Absolute [place] # 0.57 [facility] Basophils (Bld) [#/Vol] 10*3/uL B ON [facility] Basophils/100 WBC (Bld) 0 % 0 - 2 % B ON [facility] Eosinophils/100 WBC (Bld) 3 % 1 - 4 % [facility] Hematocrit (Bld) [Volume fraction] 24.2 % Low 36.3 - 47.1 % [facility] Hemoglobin (Bld) [Mass/Vol] 7.7 g/dL Low 11.9 - 15.1 g/dL [facility] Immature granulocytes/100 WBC (Bld) 1 % High 0 [facility] Interpretation and review of laboratory results Abnormal [facility] Lymphocytes/100 WBC (Bld) 19 % Low 24 - 43 % [facility] MCH (RBC) [Entitic mass] 31.2 pg 25.2 - 33.5 pg [facility] MCHC (RBC) [Mass/Vol] 31.8 g/dL 28.4 - 34.8 g/dL [facility] MCV (RBC) [Entitic vol] 98.0 fL 82.6 - 102.9 fL [facility] Monocytes/100 WBC (Bld) 6 % 3 - 12 % B [facility] NRBC Automated 0.0 0.0 per 100 WBC [facility] Platelet distribution width (Bld) [Ratio] 18.3 % High 11.8 - 14.4 % [facility] Platelet mean volume (Bld) [Entitic vol] 8.6 fL 8.1 - 13.5 fL [facility] Platelets (Bld) [#/Vol] 458 10*3/uL High [facility] RBC (Bld) [#/Vol] 2.47 10*6/uL Low 3.95 - 5.1 1 m/uL [facility] RBC (Bld) [#/Vol] ANISOCYTOSIS PRESENT [facility] Seg Neutrophils 71 % High 36 - 65 % [facility] Segs Absolute 6.77 [facility] WBC (Bld) [#/Vol] 9.5 10*3/uL [facility] Magnesiumon 08-05-2021 Magnesium [Mass/Vol] 1.8 mg/dL 1.6 - 2 .6 mg/dL [facility] No Panel Informationon 08-05 Interpretation and review of laboratory results Abnormal [facility] POC Glucose Fingerstickon Glucose [Mass/Vol] 130 mg/dL High 65 - 105 mg/dL [facility] Interpretation and review of laboratory results Abnormal [facility] Glucose [Mass/Vol] 139 mg/dL High 65 - 105 mg/dL [facility] Interpretation and review of laboratory results Abnormal [facility] Glucose [Mass/Vol] 126 mg/dL High 65 - 105 mg/dL [facility] Interpretation and review of laboratory results Abnormal [facility] Glucose [Mass/Vol] 151 mg/dL High 65 - 105 mg/dL [facility] Interpretation and review of laboratory results Abnormal [facility] POCT Glucoseon 08-05-2021 Glucose [Mass/Vol] 112 mg/dL High 74 - 100 mg/dL [facility] Basic Metabolic Panel w/ Ref rafael to MGon 08-04-2021 Anion gap [Moles/Vol] 11 mmol/L 9 - 17 mmol/L [facility] Calcium [Mass/Vol] 8.1 mg/dL Low 8.6 - 10. 4 mg/dL [facility] Chloride [Moles/Vol] 108 mmol/L High 98 - 10 7 mmol/L [facility] CO2 [Moles/Vol] 22 mmol/L 20 - 31 mmol/L [facility] Creatinine [Mass/Vol] 0.57 mg/dL 0.50 - 0.90 mg/dL [facility] GFR >60 >60 mL/min [facility] GFR Non- >60 >60 mL/min [facility] GFR/1.73 sq M.predicted MDRD (S/P/Bld) [Vol rate/Area] [facility] Glucose [Mass/Vol] 195 mg/dL High 70 - 99 mg/dL [facility] Interpretation and review of laboratory results Abnormal [facility] Potassium [Moles/Vol] 3.5 mmol/L Low 3.7 - 5.3 mmol/L [facility] Sodium [Moles/Vol] 141 mmol/L 135 - 144 mmol/L [facility] Urea nitrogen (BldV) [Mass/Vol] 17 mg/dL 6 - 20 mg/dL [facility] CBC with Auto Differentialon 08-04-2021 Absolute Eos # 0.[address] [facility] [facility] Absolute Immature Granulocyte 0.07 [facility] Absolute Lymph # 1.[address] [facility] Absolute [place] # 0.72 [facility] Basophils (Bld) [#/Vol] 10*3/uL B ON [facility] Basophils/100 WBC (Bld) 0 % 0 - 2 % B ON [facility] Eosinophils/100 WBC (Bld) 2 % 1 - 4 % [facility] Hematocrit (Bld) [Volume fraction] 23.7 % Low 36.3 - 47.1 % [facility] Hemoglobin (Bld) [Mass/Vol] 8.0 g/dL Low 11.9 - 15.1 g/dL [facility] Immature granulocytes/100 WBC (Bld) 1 % High 0 [facility] Interpretation and review of laboratory results Abnormal [facility] Lymphocytes/100 WBC (Bld) 17 % Low 24 - 43 % [facility] MCH (RBC) [Entitic mass] 32.3 pg 25.2 - 33.5 pg [facility] MCHC (RBC) [Mass/Vol] 33.8 g/dL 28.4 - 34.8 g/dL [facility] MCV (RBC) [Entitic vol] 95.6 fL 82.6 - 102.9 fL [facility] Monocytes/100 WBC (Bld) 7 % 3 - 12 % B ON [facility] NRBC Automated 0.0 0.0 per 100 WBC [facility] Platelet distribution width (Bld) [Ratio] 18.4 % High 11.8 - 14.4 % [facility] Platelet mean volume (Bld) [Entitic vol] 8.7 fL 8.1 - 13.5 fL [facility] Platelets (Bld) [#/Vol] 429 10*3/uL [facility] RBC (Bld) [#/Vol] 2.48 10*6/uL Low 3.95 - 5.1 1 m/uL [facility] RBC (Bld) [#/Vol] ANISOCYTOSIS PRESENT [facility] Seg Neutrophils 73 % High 36 - 65 % [facility] Segs Absolute 7.64 [facility] WBC (Bld) [#/Vol] 10.5 10*3/uL [facility] Lipaseon 08-04-2021 Lipase [Catalytic activity/Vol] 16 U/L 13 - 60 U/L [facility] Magnesiumon 08-04-2021 Magnesium [Mass/Vol] 1.9 mg/dL 1.6 - 2 .6 mg/dL [facility] POC Glucose Fingerstickon Glucose [Mass/Vol] 170 mg/dL High 65 - 105 mg/dL [facility] Interpretation and review of laboratory results Abnormal [facility] Glucose [Mass/Vol] 118 mg/dL High 65 - 105 mg/dL [facility] Interpretation and review of laboratory results Abnormal [facility] Glucose [Mass/Vol] 226 mg/dL High 65 - 105 mg/dL [facility] Interpretation and review of laboratory results Abnormal [facility] Glucose [Mass/Vol] 192 mg/dL High 65 - 105 mg/dL [facility] Interpretation and review of laboratory results Abnormal [facility] Arterial Blood Gas, POCon Adarsh Test NOT APPLICABLE [facility] FIO2 30.0 [facility] HCO3 (Bld) [Moles/Vol] 24.5 mmol/L 21.0 - 28.0 mmol/L [facility] Mode PRVC [facility] O2 Device/Flow/% Adult Ventilator DAKOTAH [facility] Oxygen saturation in Blood 99 % High 94.0 - 98.0 % [facility] POC pCO2 31.7 Low [facility] POC pH 7.497 High [facility] POC PO2 116.0 High [facility] Positive Base Excess, Art 2 [facility] Sample Site Arterial Line [facility] Basic Metabolic Panel w/ Ref rafael to MGon 08-03-2021 Anion gap [Moles/Vol] 10 mmol/L 9 - 17 mmol/L [facility] Calcium [Mass/Vol] 8.3 mg/dL Low 8.6 - 10. 4 mg/dL [facility] Chloride [Moles/Vol] 107 mmol/L 98 - 10 7 mmol/L [facility] CO2 [Moles/Vol] 22 mmol/L 20 - 31 mmol/L [facility] Creatinine [Mass/Vol] 0.6 mg/dL 0.50 - 0.90 mg/dL [facility] GFR >60 >60 mL/min [facility] GFR Non- >60 >60 mL/min [facility] GFR/1.73 sq M.predicted MDRD (S/P/Bld) [Vol rate/Area] [facility] Glucose [Mass/Vol] 210 mg/dL High 70 - 99 mg/dL [facility] Interpretation and review of laboratory results Abnormal [facility] Potassium [Moles/Vol] 3.6 mmol/L Low 3.7 - 5.3 mmol/L [facility] Sodium [Moles/Vol] 139 mmol/L 135 - 144 mmol/L [facility] Urea nitrogen (BldV) [Mass/Vol] 15 mg/dL 6 - 20 mg/dL [facility] CBC with Auto Differentialon 08-03-2021 Absolute Eos # 0.[address] [facility] Absolute Immature Granulocyte 0.11 [facility] Absolute Lymph # 1.74 [facility] Absolute [place] # 0.92 [facility] Basophils (Bld) [#/Vol] 0.03 10*3/uL [facility] Basophils/100 WBC (Bld) 0 % 0 - 2 % B [facility] Eosinophils/100 WBC (Bld) 2 % 1 - 4 % [facility] Hematocrit (Bld) [Volume fraction] 24.8 % Low 36.3 - 47.1 % [facility] Hemoglobin (Bld) [Mass/Vol] 8.3 g/dL Low 11.9 - 15.1 g/dL [facility] Immature granulocytes/100 WBC (Bld) 1 % High 0 [facility] Interpretation and review of laboratory results Abnormal [facility] Lymphocytes/100 WBC (Bld) 15 % Low 24 - 43 % [facility] MCH (RBC) [Entitic mass] 31.6 pg 25.2 - 33.5 pg [facility] MCHC (RBC) [Mass/Vol] 33.5 g/dL 28.4 - 34.8 g/dL [facility] MCV (RBC) [Entitic vol] 94.3 fL 82.6 - 102.9 fL [facility] Monocytes/100 WBC (Bld) 8 % 3 - 12 % B ON [facility] NRBC Automated 0.0 0.0 per 100 WBC [facility] Platelet distribution width (Bld) [Ratio] 18.5 % High 11.8 - 14.4 % [facility] Platelet mean volume (Bld) [Entitic vol] 8.8 fL 8.1 - 13.5 fL [facility] Platelets (Bld) [#/Vol] 429 10*3/uL [facility] RBC (Bld) [#/Vol] 2.63 10*6/uL Low 3.95 - 5.1 1 m/uL [facility] RBC (Bld) [#/Vol] ANISOCYTOSIS PRESENT [facility] Seg Neutrophils 74 % High 36 - 65 % [facility] Segs Absolute 8.94 High [facility] WBC (Bld) [#/Vol] 11.9 10*3/uL High [facility] S [facility] No Panel Informationon 08-03 Interpretation and review of laboratory results Abnormal [facility] POC Glucose Fingerstickon Glucose [Mass/Vol] 302 mg/dL High 65 - 105 mg/dL [facility] Interpretation and review of laboratory results Abnormal [facility] Glucose [Mass/Vol] 246 mg/dL High 65 - 105 mg/dL [facility] Interpretation and review of laboratory results Abnormal [facility] Glucose [Mass/Vol] 196 mg/dL High 65 - 105 mg/dL [facility] Interpretation and review of laboratory results Abnormal [facility] Glucose [Mass/Vol] 222 mg/dL High 65 - 105 mg/dL [facility] Interpretation and review of laboratory results Abnormal [facility] Glucose [Mass/Vol] 216 mg/dL High 65 - 105 mg/dL [facility] Interpretation and review of laboratory results Abnormal [facility] POCT Glucoseon 08-03-2021 Glucose [Mass/Vol] 218 mg/dL High 74 - 100 mg/dL [facility] Arterial Blood Gas, POCon Adarsh Test NOT APPLICABLE [facility] FIO2 30.0 [facility] HCO3 (Bld) [Moles/Vol] 24.2 mmol/L 21.0 - 28.0 mmol/L [facility] Mode PRVC [facility] O2 Device/Flow/% Adult Ventilator DAKOTAH N [facility] Oxygen saturation in Blood 99 % High 94.0 - 98.0 % [facility] POC pCO2 35.7 [facility] POC pH 7.439 [facility] POC PO2 119.9 High [facility] Positive Base Excess, Art 0 [facility] Sample Site Arterial Line [facility] Basic Metabolic Panel w/ Ref rafael to MGon 08-02-2021 Anion gap [Moles/Vol] 9 mmol/L 9 - 17 mmol/L [facility] Calcium [Mass/Vol] 8.0 mg/dL Low 8.6 - 10. 4 mg/dL [facility] Chloride [Moles/Vol] 106 mmol/L 98 - 10 7 mmol/L [facility] CO2 [Moles/Vol] 22 mmol/L 20 - 31 mmol/L [facility] Creatinine [Mass/Vol] 0.67 mg/dL 0.50 - 0.90 mg/dL [facility] GFR >60 >60 mL/min [facility] GFR Non- >60 >60 mL/min [facility] GFR/1.73 sq M.predicted MDRD (S/P/Bld) [Vol rate/Area] [facility] Glucose [Mass/Vol] 247 mg/dL High 70 - 99 mg/dL [facility] Interpretation and review of laboratory results Abnormal [facility] Potassium [Moles/Vol] 3.3 mmol/L Low 3.7 - 5.3 mmol/L [facility] Sodium [Moles/Vol] 137 mmol/L 135 - 144 mmol/L [facility] Urea nitrogen (BldV) [Mass/Vol] 15 mg/dL 6 - 20 mg/dL [facility] CBC with Auto Differentialon 08-02-2021 Absolute Eos # 0.[address] [facility] Absolute Immature Granulocyte 0.26 [facility] Absolute Lymph # 1.[address] [facility] Absolute [place] # 0.99 [facility] Basophils (Bld) [#/Vol] 0.04 10*3/uL [facility] Basophils/100 WBC (Bld) 0 % 0 - 2 % B [facility] Eosinophils/100 WBC (Bld) 1 % 1 - 4 % [facility] Hematocrit (Bld) [Volume fraction] 23.5 % Low 36.3 - 47.1 % [facility] Hemoglobin (Bld) [Mass/Vol] 8.0 g/dL Low 11.9 - 15.1 g/dL [facility] Immature granulocytes/100 WBC (Bld) 2 % High 0 [facility] Interpretation and review of laboratory results Abnormal [facility] Lymphocytes/100 WBC (Bld) 16 % Low 24 - 43 % [facility] MCH (RBC) [Entitic mass] 32.0 pg 25.2 - 33.5 pg [facility] MCHC (RBC) [Mass/Vol] 34.0 g/dL 28.4 - 34.8 g/dL [facility] MCV (RBC) [Entitic vol] 94.0 fL 82.6 - 102.9 fL [facility] Monocytes/100 WBC (Bld) 8 % 3 - 12 % B ON [facility] NRBC Automated 0.0 0.0 per 100 WBC [facility] Platelet distribution width (Bld) [Ratio] 18.5 % High 11.8 - 14.4 % [facility] Platelet mean volume (Bld) [Entitic vol] 8.4 fL 8.1 - 13.5 fL [facility] Platelets (Bld) [#/Vol] 398 10*3/uL [facility] RBC (Bld) [#/Vol] 2.50 10*6/uL Low 3.95 - 5.1 1 m/uL [facility] RBC (Bld) [#/Vol] ANISOCYTOSIS PRESENT [facility] Seg Neutrophils 73 % High 36 - 65 % [facility] Segs Absolute 8.88 High [facility] WBC (Bld) [#/Vol] 12.3 10*3/uL High [facility] S [facility] Magnesiumon 08-02-2021 Magnesium [Mass/Vol] 1.7 mg/dL 1.6 - 2 .6 mg/dL [facility] No Panel Informationon 08-02 Interpretation and review of laboratory results Abnormal [facility] POC Glucose Fingerstickon Glucose [Mass/Vol] 194 mg/dL High 65 - 105 mg/dL [facility] Interpretation and review of laboratory results Abnormal [facility] Glucose [Mass/Vol] 112 mg/dL High 65 - 105 mg/dL [facility] Interpretation and review of laboratory results Abnormal [facility] Glucose [Mass/Vol] 172 mg/dL High 65 - 105 mg/dL [facility] Interpretation and review of laboratory results Abnormal [facility] Glucose [Mass/Vol] 251 mg/dL High 65 - 105 mg/dL [facility] Interpretation and review of laboratory results Abnormal [facility] Glucose [Mass/Vol] 240 mg/dL High 65 - 105 mg/dL [facility] Interpretation and review of laboratory results Abnormal [facility] POCT Glucoseon 08-02-2021 Glucose [Mass/Vol] 286 mg/dL High 74 - 100 mg/dL [facility] Basic Metabolic Panel w/ Ref rafael to MGon 08-01-2021 Anion gap [Moles/Vol] 13 mmol/L 9 - 17 mmol/L [facility] Calcium [Mass/Vol] 7.9 mg/dL Low 8.6 - 10. 4 mg/dL [facility] Chloride [Moles/Vol] 105 mmol/L 98 - 10 7 mmol/L [facility] CO2 [Moles/Vol] 20 mmol/L 20 - 31 mmol/L [facility] Creatinine [Mass/Vol] 0.72 mg/dL 0.50 - 0.90 mg/dL [facility] GFR >60 >60 mL/min [facility] GFR Non- >60 >60 mL/min [facility] GFR/1.73 sq M.predicted MDRD (S/P/Bld) [Vol rate/Area] [facility] Glucose [Mass/Vol] 212 mg/dL High 70 - 99 mg/dL [facility] Interpretation and review of laboratory results Abnormal [facility] Potassium [Moles/Vol] 3.2 mmol/L Low 3.7 - 5.3 mmol/L [facility] Sodium [Moles/Vol] 138 mmol/L 135 - 144 mmol/L [facility] Urea nitrogen (BldV) [Mass/Vol] 15 mg/dL 6 - 20 mg/dL [facility] CBC with Auto Differentialon 08-01-2021 Absolute Eos # 0.[address] [facility] Absolute Immature Granulocyte 0.56 High [facility] Absolute Lymph # 2.[address] [facility] Absolute [place] # 0.70 [facility] Basophils (Bld) [#/Vol] 0.00 10*3/uL [facility] Basophils/100 WBC (Bld) 0 % 0 - 2 % B ON [facility] Eosinophils/100 WBC (Bld) 1 % 1 - 4 % [facility] Hematocrit (Bld) [Volume fraction] 27.1 % Low 36.3 - 47.1 % [facility] Hemoglobin (Bld) [Mass/Vol] 9.1 g/dL Low 11.9 - 15.1 g/dL [facility] Immature granulocytes/100 WBC (Bld) 4 % High 0 [facility] Interpretation and review of laboratory results Abnormal [facility] Lymphocytes/100 WBC (Bld) 19 % Low 24 - 44 % [facility] MCH (RBC) [Entitic mass] 31.7 pg 25.2 - 33.5 pg [facility] MCHC (RBC) [Mass/Vol] 33.6 g/dL 28.4 - 34.8 g/dL [facility] MCV (RBC) [Entitic vol] 94.4 fL 82.6 - 102.9 fL [facility] Monocytes/100 WBC (Bld) 5 % 1 - 7 % B ON [facility] Morphology Malachi (Bld) [Interp] ANISOCYTOSIS PRESENT [facility] NRBC Automated 0.0 0.0 per 100 WBC [facility] Platelet distribution width (Bld) [Ratio] 18.8 % High 11.8 - 14.4 % [facility] Platelet mean volume (Bld) [Entitic vol] 8.7 fL 8.1 - 13.5 fL [facility] Platelets (Bld) [#/Vol] 490 10*3/uL High [facility] RBC (Bld) [#/Vol] 2.87 10*6/uL Low 3.95 - 5.1 1 m/uL [facility] Seg Neutrophils 71 % High 36 - 66 % [facility] Segs Absolute 9.94 High [facility] WBC (Bld) [#/Vol] 14.0 10*3/uL High [facility] Magnesiumon 08-01-2021 Magnesium [Mass/Vol] 1.7 mg/dL 1.6 - 2 .6 mg/dL [facility] POC Glucose Fingerstickon Glucose [Mass/Vol] 124 mg/dL High 65 - 105 mg/dL [facility] Interpretation and review of laboratory results Abnormal [facility] Glucose [Mass/Vol] 201 mg/dL High 65 - 105 mg/dL [facility] Interpretation and review of laboratory results Abnormal [facility] Glucose [Mass/Vol] 264 mg/dL High 65 - 105 mg/dL [facility] Interpretation and review of laboratory results Abnormal [facility] Glucose [Mass/Vol] 184 mg/dL High 65 - 105 mg/dL [facility] Interpretation and review of laboratory results Abnormal [facility] Glucose [Mass/Vol] 241 mg/dL High 65 - 105 mg/dL [facility] Interpretation and review of laboratory results Abnormal [facility] Triglycerideon 08-01-2021 Interpretation and review of laboratory results Abnormal [facility] Triglyceride [Mass/Vol] 164 mg/dL High <150 B ON [facility]ITALTouraATRIUM HEALTH UNIVERSITY CITYTelormedix [facility] Basic Metabolic Panel w/ Ref rafael to MGon 07-31-2021 Anion gap [Moles/Vol] 14 mmol/L 9 - 17 mmol/L [facility], [facility] Calcium [Mass/Vol] 8.0 mg/dL Low 8.6 - 10. 4 mg/dL [facility], [facility] Chloride [Moles/Vol] 106 mmol/L 98 - 10 7 mmol/L [facility] CO2 [Moles/Vol] 20 mmol/L 20 - 31 mmol/L [facility], [facility] Creatinine [Mass/Vol] 0.78 mg/dL 0.50 - 0.90 mg/dL [facility], [facility] GFR >60 >60 mL/min [facility] [employer], [facility] GFR Non- >60 >60 mL/min [facility], [facility]OH[facility] GFR/1.73 sq M.predicted MDRD (S/P/Bld) [Vol rate/Area] [facility] Glucose [Mass/Vol] 209 mg/dL High 70 - 99 mg/dL [facility] Interpretation and review of laboratory results Abnormal [facility] Potassium [Moles/Vol] 3.3 mmol/L Low 3.7 - 5.3 mmol/L [facility] Sodium [Moles/Vol] 140 mmol/L 135 - 144 mmol/L [facility] Urea nitrogen (BldV) [Mass/Vol] 14 mg/dL 6 - 20 mg/dL [facility] CBC with Auto Differentialon 07-31-2021 Absolute Eos # 0.[address] [facility] Absolute Immature Granulocyte 0.98 High [facility] Absolute Lymph # 2.[address] [facility] Absolute [place] # 0.98 High [facility] Basophils (Bld) [#/Vol] 0.00 10*3/uL [facility] Basophils/100 WBC (Bld) 0 % 0 - 2 % B ON [facility] Eosinophils/100 WBC (Bld) 2 % 1 - 4 % [facility] Hematocrit (Bld) [Volume fraction] 27.4 % Low 36.3 - 47.1 % [facility] Hemoglobin (Bld) [Mass/Vol] 9.5 g/dL Low 11.9 - 15.1 g/dL [facility] Immature granulocytes/100 WBC (Bld) 7 % High 0 [facility] Interpretation and review of laboratory results Abnormal [facility] Lymphocytes/100 WBC (Bld) 21 % Low 24 - 44 % [facility] MCH (RBC) [Entitic mass] 31.8 pg 25.2 - 33.5 pg [facility] MCHC (RBC) [Mass/Vol] 34.7 g/dL 28.4 - 34.8 g/dL [facility] MCV (RBC) [Entitic vol] 91.6 fL 82.6 - 102.9 fL [facility] Monocytes/100 WBC (Bld) 7 % 1 - 7 % B ON [facility] Morphology Malachi (Bld) [Interp] ANISOCYTOSIS PRESENT [facility] NRBC Automated 0.0 0.0 per 100 WBC [facility] Platelet distribution width (Bld) [Ratio] 18.4 % High 11.8 - 14.4 % [facility] Platelet mean volume (Bld) [Entitic vol] 8.7 fL 8.1 - 13.5 fL [facility] Platelets (Bld) [#/Vol] 502 10*3/uL High [facility] RBC (Bld) [#/Vol] 2.99 10*6/uL Low 3.95 - 5.1 1 m/uL [facility] Seg Neutrophils 63 % 36 - 66 % [facility] Segs Absolute 8.82 High [facility] WBC (Bld) [#/Vol] 14.0 10*3/uL High [facility] Hemoglobin and Hematocriton 07-31-2021 Hematocrit (Bld) [Volume fraction] 27.4 % Low 36.3 - 47.1 % [facility] Hemoglobin (Bld) [Mass/Vol] 9.2 g/dL Low 11.9 - 15.1 g/dL [facility] Interpretation and review of laboratory results Abnormal [facility] Magnesiumon 07-31-2021 Magnesium [Mass/Vol] 1.6 mg/dL 1.6 - 2 .6 mg/dL [facility] POC Glucose Fingerstickon Glucose [Mass/Vol] 134 mg/dL High 65 - 105 mg/dL [facility] Interpretation and review of laboratory results Abnormal [facility] Glucose [Mass/Vol] 230 mg/dL High 65 - 105 mg/dL [facility] Interpretation and review of laboratory results Abnormal [facility] Glucose [Mass/Vol] 214 mg/dL High 65 - 105 mg/dL [facility] Interpretation and review of laboratory results Abnormal [facility] Glucose [Mass/Vol] 197 mg/dL High 65 - 105 mg/dL [facility] Interpretation and review of laboratory results Abnormal [facility] Glucose [Mass/Vol] 164 mg/dL High 65 - 105 mg/dL [facility] Interpretation and review of laboratory results Abnormal [facility] Arterial Blood Gas, POCon Adarsh Test NOT APPLICABLE [facility] FIO2 30.0 [facility] HCO3 (Bld) [Moles/Vol] 24.4 mmol/L 21.0 - 28.0 mmol/L [facility] Interpretation and review of laboratory results Abnormal [facility] Mode PRVC [facility] O2 Device/Flow/% Adult Ventilator DAKOTAH [facility] Oxygen saturation in Blood 98 % 94.0 - 98.0 % [facility] POC pCO2 33.3 Low [facility] POC pH 7.473 High [facility] POC PO2 104.7 [facility] Positive Base Excess, Art 1 [facility] Sample Site Arterial Line [facility] Basic Metabolic Panel w/ Ref rafael to MGon 07-30-2021 Anion gap [Moles/Vol] 10 mmol/L 9 - 17 mmol/L [facility] Calcium [Mass/Vol] 8.0 mg/dL Low 8.6 - 10. 4 mg/dL [facility] Chloride [Moles/Vol] 105 mmol/L 98 - 10 7 mmol/L [facility] CO2 [Moles/Vol] 22 mmol/L 20 - 31 mmol/L [facility] Creatinine [Mass/Vol] 0.7 mg/dL 0.50 - 0.90 mg/dL [facility] GFR >60 >60 mL/min [facility] GFR Non- >60 >60 mL/min [facility] GFR/1.73 sq M.predicted MDRD (S/P/Bld) [Vol rate/Area] [facility] Glucose [Mass/Vol] 276 mg/dL High 70 - 99 mg/dL [facility] Interpretation and review of laboratory results Abnormal [facility] Potassium [Moles/Vol] 3.8 mmol/L 3.7 - 5.3 mmol/L [facility] Sodium [Moles/Vol] 137 mmol/L 135 - 144 mmol/L [facility] Urea nitrogen (BldV) [Mass/Vol] 14 mg/dL 6 - 20 mg/dL [facility] CBC with Auto Differentialon 07-30-2021 Absolute Eos # 0.[address] [facility] Absolute Immature Granulocyte 0.71 High [facility] Absolute Lymph # 3.[address] [facility] [facility] Absolute [place] # 0.57 [facility] Basophils (Bld) [#/Vol] 0.00 10*3/uL [facility] Basophils/100 WBC (Bld) 0 % 0 - 2 % B ON [facility] Eosinophils/100 WBC (Bld) 0 % Low 1 - 4 % [facility] Hematocrit (Bld) [Volume fraction] 27.0 % Low 36.3 - 47.1 % [facility] Hemoglobin (Bld) [Mass/Vol] 9.3 g/dL Low 11.9 - 15.1 g/dL [facility] Immature granulocytes/100 WBC (Bld) 5 % High 0 [facility] Interpretation and review of laboratory results Abnormal [facility] Lymphocytes/100 WBC (Bld) 26 % 24 - 44 % [facility] MCH (RBC) [Entitic mass] 31.5 pg 25.2 - 33.5 pg [facility] MCHC (RBC) [Mass/Vol] 34.4 g/dL 28.4 - 34.8 g/dL [facility] MCV (RBC) [Entitic vol] 91.5 fL 82.6 - 102.9 fL [facility] Monocytes/100 WBC (Bld) 4 % 1 - 7 % B ON [facility] Morphology Malachi (Bld) [Interp] ANISOCYTOSIS PRESENT [facility] NRBC Automated 0.0 0.0 per 100 WBC [facility] Platelet distribution width (Bld) [Ratio] 17.7 % High 11.8 - 14.4 % [facility] Platelet mean volume (Bld) [Entitic vol] 8.8 fL 8.1 - 13.5 fL [facility] Platelets (Bld) [#/Vol] 491 10*3/uL High [facility] RBC (Bld) [#/Vol] 2.95 10*6/uL Low 3.95 - 5.1 1 m/uL [facility] Seg Neutrophils 65 % 36 - 66 % [facility] Segs Absolute 9.23 High [facility] WBC (Bld) [#/Vol] 14.2 10*3/uL High [facility] Hemoglobin and Hematocriton 07-30-2021 Hematocrit (Bld) [Volume fraction] 29.5 % Low 36.3 - 47.1 % [facility] Hemoglobin (Bld) [Mass/Vol] 9.6 g/dL Low 11.9 - 15.1 g/dL [facility] Interpretation and review of laboratory results Abnormal [facility] POC Glucose Fingerstickon Glucose [Mass/Vol] 106 mg/dL High 65 - 105 mg/dL [facility] Interpretation and review of laboratory results Abnormal [facility] Glucose [Mass/Vol] 231 mg/dL High 65 - 105 mg/dL [facility] Interpretation and review of laboratory results Abnormal [facility] TYPE AND SCREENon 07-30-2021 ABO/Rh Positive [facility] Arm Band Number BE [id number] [facility] Blood Bank Blood Product Expiration Date [id number] [facility] Blood Bank ISBT Product Blood Type 6200 [facility] Blood Bank Unit Type and Rh Positive [facility] Blood product type Nom (BPU) Leukocyte Reduced Red Cell [facility] Blood product unit ID (Dose) [#] [id number] [facility] Crossmatch Result [facility] Dispense Status TRANSFUSED [facility] Expiration Date 08/01/2021,2351 [facility] Product Code Blood Bank [id number] B ON [facility] Transfusion Status OK TO TRANSFUSE B ON [facility] Unit Divison 0 [facility] Unit Issue Date/Time [id number] DAKOTAH N [facility] Arterial Blood Gas, POCon Adarsh Test NOT APPLICABLE [facility] FIO2 30.0 [facility] HCO3 (Bld) [Moles/Vol] 23.0 mmol/L 21.0 - 28.0 mmol/L [facility] Interpretation and review of laboratory results Abnormal [facility] Mode PRVC [facility] Negative Base Excess, Art 1 [facility] O2 Device/Flow/% Adult Ventilator DAKOTAH N [facility] Oxygen saturation in Blood 99 % High 94.0 - 98.0 % [facility] POC pCO2 35.1 [facility] POC pH 7.425 [facility] POC PO2 120.9 High [facility] Sample Site Arterial Line [facility] Basic Metabolic Panel w/ Ref rafael to MGon 07-29-2021 Anion gap [Moles/Vol] 9 mmol/L 9 - 17 mmol/L [facility] Calcium [Mass/Vol] 7.8 mg/dL Low 8.6 - 10. 4 mg/dL [facility] Chloride [Moles/Vol] 106 mmol/L 98 - 10 7 mmol/L [facility] CO2 [Moles/Vol] 21 mmol/L 20 - 31 mmol/L [facility] Creatinine [Mass/Vol] 0.71 mg/dL 0.50 - 0.90 mg/dL [facility] GFR >60 >60 mL/min [facility] GFR Non- >60 >60 mL/min [facility] GFR/1.73 sq M.predicted MDRD (S/P/Bld) [Vol rate/Area] [facility] Glucose [Mass/Vol] 246 mg/dL High 70 - 99 mg/dL [facility] Interpretation and review of laboratory results Abnormal [facility] Potassium [Moles/Vol] 3.6 mmol/L Low 3.7 - 5.3 mmol/L [facility] Sodium [Moles/Vol] 136 mmol/L 135 - 144 mmol/L [facility] Urea nitrogen (BldV) [Mass/Vol] 11 mg/dL 6 - 20 mg/dL [facility] CBC with Auto Differentialon 07-29-2021 Absolute Eos # 0.[address] [facility] Absolute Immature Granulocyte 0.43 High [facility] Absolute Lymph # 3.[address] [facility] Absolute [place] # 0.32 [facility] Basophils (Bld) [#/Vol] 0.00 10*3/uL [facility] Basophils/100 WBC (Bld) 0 % 0 - 2 % B ON [facility] Eosinophils/100 WBC (Bld) 0 % Low 1 - 4 % [facility] Hematocrit (Bld) [Volume fraction] 22.5 % Low 36.3 - 47.1 % [facility] Hemoglobin (Bld) [Mass/Vol] 7.4 g/dL Low 11.9 - 15.1 g/dL [facility] Immature granulocytes/100 WBC (Bld) 4 % High 0 [facility] Interpretation and review of laboratory results Abnormal [facility] Lymphocytes/100 WBC (Bld) 29 % 24 - 44 % [facility] MCH (RBC) [Entitic mass] 30.7 pg 25.2 - 33.5 pg [facility] MCHC (RBC) [Mass/Vol] 32.9 g/dL 28.4 - 34.8 g/dL [facility] MCV (RBC) [Entitic vol] 93.4 fL 82.6 - 102.9 fL [facility] Monocytes/100 WBC (Bld) 3 % 1 - 7 % B ON [facility] Morphology Malachi (Bld) [Interp] ANISOCYTOSIS PRESENT [facility] NRBC Automated 0.0 0.0 per 100 WBC [facility] Platelet distribution width (Bld) [Ratio] 19.6 % High 11.8 - 14.4 % [facility] Platelet mean volume (Bld) [Entitic vol] 8.9 fL 8.1 - 13.5 fL [facility] Platelets (Bld) [#/Vol] 500 10*3/uL High [facility] RBC (Bld) [#/Vol] 2.41 10*6/uL Low 3.95 - 5.1 1 m/uL [facility] Seg Neutrophils 64 % 36 - 66 % [facility] Segs Absolute 6.92 [facility] WBC (Bld) [#/Vol] 10.8 10*3/uL [facility] Hemoglobin and Hematocriton 07-29-2021 Hematocrit (Bld) [Volume fraction] 29.9 % Low 36.3 - 47.1 % [facility] Hemoglobin (Bld) [Mass/Vol] 10.1 g/dL Low 11.9 - 15.1 g/dL [facility] Interpretation and review of laboratory results Abnormal [facility] Hematocrit (Bld) [Volume fraction] 24.9 % Low 36.3 - 47.1 % [facility] Hemoglobin (Bld) [Mass/Vol] 8.4 g/dL Low 11.9 - 15.1 g/dL [facility] Interpretation and review of laboratory results Abnormal [facility] POC Glucose Fingerstickon Glucose [Mass/Vol] 169 mg/dL High 65 - 105 mg/dL [facility] Interpretation and review of laboratory results Abnormal [facility] Glucose [Mass/Vol] 296 mg/dL High 65 - 105 mg/dL [facility] Interpretation and review of laboratory results Abnormal [facility] Glucose [Mass/Vol] 276 mg/dL High 65 - 105 mg/dL [facility] Interpretation and review of laboratory results Abnormal [facility] Glucose [Mass/Vol] 217 mg/dL High 65 - 105 mg/dL [facility] Interpretation and review of laboratory results Abnormal [facility] Arterial Blood Gas, POCon FIO2 30.0 [facility] HCO3 (Bld) [Moles/Vol] 22.0 mmol/L 21.0 - 28.0 mmol/L [facility] Mode PRVC [facility] Negative Base Excess, Art 2 [facility] O2 Device/Flow/% Adult Ventilator DAKOTAH N [facility] Oxygen saturation in Blood 98 % 94.0 - 98.0 % [facility] POC pCO2 30.9 Low [facility] POC pH 7.460 High [facility] POC PO2 101.0 [facility] Sample Site Arterial Line [facility] Basic Metabolic Panel w/ Ref rafael to MGon 07-28-2021 Anion gap [Moles/Vol] 9 mmol/L 9 - 17 mmol/L [facility] Calcium [Mass/Vol] 8.1 mg/dL Low 8.6 - 10. 4 mg/dL [facility] Chloride [Moles/Vol] 108 mmol/L High 98 - 10 7 mmol/L [facility] CO2 [Moles/Vol] 20 mmol/L 20 - 31 mmol/L [facility] Creatinine [Mass/Vol] 0.73 mg/dL 0.50 - 0.90 mg/dL [facility] GFR >60 >60 mL/min [facility] GFR Non- >60 >60 mL/min [facility] GFR/1.73 sq M.predicted MDRD (S/P/Bld) [Vol rate/Area] [facility] Glucose [Mass/Vol] 195 mg/dL High 70 - 99 mg/dL [facility] Interpretation and review of laboratory results Abnormal [facility] Potassium [Moles/Vol] 4.2 mmol/L 3.7 - 5.3 mmol/L [facility] Sodium [Moles/Vol] 137 mmol/L 135 - 144 mmol/L [facility] Urea nitrogen (BldV) [Mass/Vol] 8 mg/dL 6 - 20 mg/dL [facility] CBC with Auto Differentialon 07-28-2021 Absolute Eos # 0.[address] [facility] Absolute Immature Granulocyte 0.64 High [facility] Absolute Lymph # 2.69 [facility] Absolute [place] # 0.00 Low [facility] Basophils (Bld) [#/Vol] 0.00 10*3/uL [facility] Basophils/100 WBC (Bld) 0 % 0 - 2 % B ON [facility] Eosinophils/100 WBC (Bld) 0 % Low 1 - 4 % [facility] Hematocrit (Bld) [Volume fraction] 24.4 % Low 36.3 - 47.1 % [facility] Hemoglobin (Bld) [Mass/Vol] 7.9 g/dL Low 11.9 - 15.1 g/dL [facility] Immature granulocytes/100 WBC (Bld) 5 % High 0 [facility] Interpretation and review of laboratory results Abnormal [facility] Lymphocytes/100 WBC (Bld) 21 % Low 24 - 44 % [facility] MCH (RBC) [Entitic mass] 30.5 pg 25.2 - 33.5 pg [facility] MCHC (RBC) [Mass/Vol] 32.4 g/dL 28.4 - 34.8 g/dL [facility] MCV (RBC) [Entitic vol] 94.2 fL 82.6 - 102.9 fL [facility] Monocytes/100 WBC (Bld) 0 % Low 1 - 7 % B ON [facility] Morphology Malachi (Bld) [Interp] ANISOCYTOSIS PRESENT [facility] NRBC Automated 0.0 0.0 per 100 WBC [facility] Platelet distribution width (Bld) [Ratio] 19.0 % High 11.8 - 14.4 % [facility] Platelet mean volume (Bld) [Entitic vol] 8.8 fL 8.1 - 13.5 fL [facility] Platelets (Bld) [#/Vol] 490 10*3/uL High [facility] RBC (Bld) [#/Vol] 2.59 10*6/uL Low 3.95 - 5.1 1 m/uL [facility] Seg Neutrophils 74 % High 36 - 66 % [facility] Segs Absolute 9.47 High [facility] WBC (Bld) [#/Vol] 12.8 10*3/uL High [facility] Calcium, Ionizedon 06-11-202 2 Calcium [Moles/Vol] 1.15 mmol/L 1.13 - 1 .33 mmol/L [facility] Hemoglobin and Hematocriton 07-28-2021 Hematocrit (Bld) [Volume fraction] 23.9 % Low 36.3 - 47.1 % [facility] Hemoglobin (Bld) [Mass/Vol] 8.2 g/dL Low 11.9 - 15.1 g/dL [facility] Interpretation and review of laboratory results Abnormal [facility] No Panel Informationon 07-28 Interpretation and review of laboratory results Abnormal [facility] POC Glucose Fingerstickon Glucose [Mass/Vol] 183 mg/dL High 65 - 105 mg/dL [facility] Interpretation and review of laboratory results Abnormal [facility] Glucose [Mass/Vol] 187 mg/dL High 65 - 105 mg/dL [facility] Interpretation and review of laboratory results Abnormal [facility] Glucose [Mass/Vol] 163 mg/dL High 65 - 105 mg/dL [facility] Interpretation and review of laboratory results Abnormal [facility] Glucose [Mass/Vol] 182 mg/dL High 65 - 105 mg/dL [facility] Interpretation and review of laboratory results Abnormal [facility] POCT Glucoseon 07-28-2021 Glucose [Mass/Vol] 177 mg/dL High 74 - 100 mg/dL [facility] CBC with Auto Differentialon 07-27-2021 Basophils (Bld) [#/Vol] 0.00 10*3/uL [facility] Basophils/100 WBC (Bld) 0 % 0 - 2 % B [facility] Eosinophils/100 WBC (Bld) 0 % Low 1 - 4 % [facility] Hematocrit (Bld) [Volume fraction] 25.3 % Low 36.3 - 47.1 % [facility] Hemoglobin (Bld) [Mass/Vol] 8.5 g/dL Low 11.9 - 15.1 g/dL [facility] Lymphocytes/100 WBC (Bld) 19 % Low 24 - 44 % [facility] MCH (RBC) [Entitic mass] 30.6 pg 25.2 - 33.5 pg [facility] MCV (RBC) [Entitic vol] 91.0 fL 82.6 - 102.9 fL [facility] Morphology Malachi (Bld) [Interp] ANISOCYTOSIS PRESENT [facility] RBC (Bld) [#/Vol] 2.78 10*6/uL Low 3.95 - 5.1 1 m/uL [facility] Calcium, Ionizedon 2 Calcium [Moles/Vol] 1.19 mmol/L 1.13 - 1 .33 mmol/L [facility] Culture, Blood 2on 2 Bacteria identified Cx Nom (Unsp spec) NO GROWTH 5 DAYS [facility] Special Requests L HAND 20ML [facility] Specimen Description .BLOOD [facility] Hemoglobin and Hematocriton 07-27-2021 Hematocrit (Bld) [Volume fraction] 26.4 % Low 36.3 - 47.1 % [facility] Hemoglobin (Bld) [Mass/Vol] 9.0 g/dL Low 11.9 - 15.1 g/dL [facility] Interpretation and review of laboratory results Abnormal [facility] Magnesiumon 07-27-2021 Magnesium [Mass/Vol] 1.8 mg/dL 1.6 - 2 .6 mg/dL [facility] POC Glucose Fingerstickon Glucose [Mass/Vol] 149 mg/dL High 65 - 105 mg/dL [facility] Interpretation and review of laboratory results Abnormal [facility] Glucose [Mass/Vol] 162 mg/dL High 65 - 105 mg/dL [facility] Interpretation and review of laboratory results Abnormal [facility] Glucose [Mass/Vol] 160 mg/dL High 65 - 105 mg/dL [facility] Interpretation and review of laboratory results Abnormal [facility] Glucose [Mass/Vol] 147 mg/dL High 65 - 105 mg/dL [facility] Interpretation and review of laboratory results Abnormal [facility] Glucose [Mass/Vol] 135 mg/dL High 65 - 105 mg/dL [facility] Interpretation and review of laboratory results Abnormal [facility] Glucose [Mass/Vol] 204 mg/dL High 65 - 105 mg/dL [facility] Interpretation and review of laboratory results Abnormal [facility] Basic Metabolic Panel w/ Ref rafael to MGon 07-14-2021 Anion gap [Moles/Vol] 14 mmol/L 9 - 17 mmol/L [facility] Calcium [Mass/Vol] 8.2 mg/dL Low 8.6 - 10. 4 mg/dL [facility] Chloride [Moles/Vol] 97 mmol/L Low 98 - 10 7 mmol/L [facility] CO2 [Moles/Vol] 30 mmol/L 20 - 31 mmol/L [facility] Creatinine [Mass/Vol] 0.92 mg/dL High 0.50 - 0.90 mg/dL [facility] GFR >60 >60 mL/min [facility] GFR Non- >60 >60 mL/min [facility] GFR/1.73 sq M.predicted MDRD (S/P/Bld) [Vol rate/Area] [facility] Comment on above: Average GFR for 50-5 9 years old: 93 mL/min/1.73sq m Chronic Kidney Disease: <60 mL/min/1.73sq m Kidney failure: <15 mL/min/1.73sq m eGFR calculated using average adult body mass. Additional eGFR calculator available at: http://[email or web address]/multiple_crcl_2012.htm Glucose [Mass/Vol] 96 mg/dL 70 - 99 mg/dL [facility] Interpretation and review of laboratory results Abnormal [facility] Potassium [Moles/Vol] 2.0 mmol/L Critically low 3.7 - 5.3 mmol/L [facility] Sodium [Moles/Vol] 141 mmol/L 135 - 144 mmol/L [facility] Urea nitrogen (BldV) [Mass/Vol] 5 mg/dL Low 6 - 20 mg/dL [facility] Urea nitrogen/Creatinine (Bld) [Mass ratio] 5 Low [facility] CBC with Auto Differentialon 07-14-2021 Absolute Eos # 0.[address] [facility] Absolute Lymph # 1.80 [facility] Absolute [place] # 0.80 [facility] Basophils (Bld) [#/Vol] 0.00 10*3/uL [facility] Basophils/100 WBC (Bld) 0 % 0 - 2 % B ON [facility] Eosinophils/100 WBC (Bld) 0 % 0 - 5 % [facility] Hematocrit (Bld) [Volume fraction] 29.9 % Low 36 - 46 % [facility] Hemoglobin.gastrointest inal spec 1 Ql (Stl) 10.1 g/dL Low 12.0 - 16.0 g/dL [facility] Interpretation and review of laboratory results Abnormal [facility] Lymphocytes/100 WBC (Bld) 22 % 15 - 40 % [facility] MCH (RBC) [Entitic mass] 28.4 pg 26 - 34 pg [facility] MCHC (RBC) [Mass/Vol] 33.8 g/dL 31 - 3 7 g/dL [facility] MCV (RBC) [Entitic vol] 83.9 fL 80 - 100 fL [facility] Monocytes/100 WBC (Bld) 10 % High 4 - 8 % B ON [facility] Morphology Malachi (Bld) [Interp] MODERATE ANISOCYTOSIS [facility] Platelet distribution width (Bld) [Ratio] 19.9 % High 12.1 - 15.2 % [facility] Platelets (Bld) [#/Vol] 701 10*3/uL High [facility] RBC (Bld) [#/Vol] 3.56 10*6/uL Low 4.0 - 5.2 m/uL [facility] Segmented neutrophils/100 WBC (Bld) 68 % 47 - 75 % [facility] Segs Absolute 5.60 [facility] WBC (Bld) [#/Vol] 8.2 10*3/uL [facility] SE COURS [facility] Magnesiumon 07-14-2021 Magnesium [Mass/Vol] 1.6 mg/dL 1.6 - 2 .6 mg/dL [facility] CBC with Auto Differentialon 07-13-2021 Absolute Eos # 0.[address] [facility] Absolute Lymph # 1.[address] [facility] Absolute [place] # 1.10 High [facility] Basophils (Bld) [#/Vol] 0.00 10*3/uL [facility] Basophils/100 WBC (Bld) 0 % 0 - 2 % B ON [facility] Eosinophils/100 WBC (Bld) 1 % 0 - 5 % [facility] Hematocrit (Bld) [Volume fraction] 31.2 % Low 36 - 46 % [facility] Hemoglobin.gastrointest inal spec 1 Ql (Stl) 10.4 g/dL Low 12.0 - 16.0 g/dL [facility] Interpretation and review of laboratory results Abnormal [facility] Lymphocytes/100 WBC (Bld) 20 % 15 - 40 % [facility] MCH (RBC) [Entitic mass] 28.1 pg 26 - 34 pg [facility] MCHC (RBC) [Mass/Vol] 33.2 g/dL 31 - 3 7 g/dL [facility] MCV (RBC) [Entitic vol] 84.7 fL 80 - 100 fL [facility] Monocytes/100 WBC (Bld) 13 % High 4 - 8 % B ON [facility] Morphology Malachi (Bld) [Interp] MODERATE ANISOCYTOSIS [facility] Morphology Malachi (Bld) [Interp] Scanned to verify automated differential. [facility] Platelet distribution width (Bld) [Ratio] 20.5 % High 12.1 - 15.2 % [facility] Platelets (Bld) [#/Vol] 725 10*3/uL High [facility] RBC (Bld) [#/Vol] 3.68 10*6/uL Low 4.0 - 5.2 m/uL [facility] Segmented neutrophils/100 WBC (Bld) 66 % 47 - 75 % [facility] Segs Absolute 5.30 [facility] WBC (Bld) [#/Vol] 8.1 10*3/uL [facility] COVID-19, Rapidon 07-13-2021 Interpretation and review of laboratory results Abnormal [facility] SARS-CoV-2 (COVID-19) RNA CAL+probe Ql (Unsp spec) Detected Abnormal Not Detected [facility] Comment on above: Rapid NAAT: The specimen [...] this assay. Fact sheet for Healthcare Providers: https://www.fda.gov/media/874168/download Fact sheet for Patients: https://www.fda.gov/media/746350/download Methodology: Isothermal Nucleic Acid Amplification Results reported to the appropriate Health Department Specimen Description .NASOPHARYNGEAL SWAB [facility] Comprehensive Metabolic Pane l w/ Reflex to MGon 07-13-2021 Albumin [Mass/Vol] 2.5 g/dL Low 3.5 - 5.2 g/dL [facility] ALP (Bld) [Catalytic activity/Vol] 450 U/L High 35 - 104 U/L [facility] ALT [Catalytic activity/Vol] 13 U/L 5 - 33 U/L [facility] Anion gap [Moles/Vol] 16 mmol/L 9 - 17 mmol/L [facility] AST [Catalytic activity/Vol] 29 U/L <32 [facility] Bilirubin [Mass/Vol] 0.64 mg/dL 0.30 - 1.20 mg/dL [facility] Calcium [Mass/Vol] 8.7 mg/dL 8.6 - 10. 4 mg/dL [facility] Chloride [Moles/Vol] 102 mmol/L 98 - 10 7 mmol/L [facility] CO2 [Moles/Vol] 25 mmol/L 20 - 31 mmol/L [facility] Creatinine [Mass/Vol] 0.85 mg/dL 0.50 - 0.90 mg/dL [facility] Free PSA/Total PSA [Mass fraction] 6.5 g/dL 6.4 - 8.3 g/dL [facility] GFR >60 >60 mL/min [facility] GFR Non- >60 >60 mL/min [facility] GFR/1.73 sq M.predicted MDRD (S/P/Bld) [Vol rate/Area] [facility] Comment on above: Average GFR for 50-5 9 years old: 93 mL/min/1.73sq m Chronic Kidney Disease: <60 mL/min/1.73sq m Kidney failure: <15 mL/min/1.73sq m eGFR calculated using average adult body mass. Additional eGFR calculator available at: [email or web address]/multiple_crcl_2012.htm Glucose [Mass/Vol] 79 mg/dL 70 - 99 mg/dL [facility] Interpretation and review of laboratory results Abnormal [facility] Potassium [Moles/Vol] 2.2 mmol/L Critically low 3.7 - 5.3 mmol/L [facility] Sodium [Moles/Vol] 143 mmol/L 135 - 144 mmol/L [facility] Urea nitrogen (BldV) [Mass/Vol] 7 mg/dL 6 - 20 mg/dL [facility] Urea nitrogen/Creatinine (Bld) [Mass ratio] 8 Low [facility] Lactate Dehydrogenaseon 05-2 Interpretation and review of laboratory results Abnormal [facility] LD 317 U/L High 135 - 214 U/L [facility] Lactic Acidon 07-13-2021 Lactate [Moles/Vol] 1 mmol/L 0.5 - 2. 2 mmol/L [facility] Magnesiumon 07-13-2021 Interpretation and review of laboratory results Abnormal [facility] Magnesium [Mass/Vol] 1.5 mg/dL Low 1.6 - 2 .6 mg/dL [facility] XR CHEST PORTABLEon 07-14-19 22 Left infrahilar [...] 4 weeks post treatment to document resolution. [facility] [employer] Work Phone: Radiology Study observation (narrative) [facility] [employer] [employer] Work Phone: XR CHEST PORTABLEOrdered By: Lionel Mas on 07-13-2021 [facility] [employer] Work Phone: Basic Metabolic Panel w/ Ref rafael to MGon 07-10-2021 Anion gap [Moles/Vol] 14 mmol/L 9 - 17 mmol/L [facility] Calcium [Mass/Vol] 7.4 mg/dL Low 8.6 - 10. 4 mg/dL [facility] Chloride [Moles/Vol] 110 mmol/L High 98 - 10 7 mmol/L [facility] CO2 [Moles/Vol] 16 mmol/L Low 20 - 31 mmol/L [facility] Creatinine [Mass/Vol] 1.01 mg/dL High 0.50 - 0.90 mg/dL [facility] GFR >60 >60 mL/min [facility] GFR Non- 56 mL/min Low >60 [facility] GFR/1.73 sq M.predicted MDRD (S/P/Bld) [Vol rate/Area] [facility] Glucose [Mass/Vol] 65 mg/dL Low 70 - 99 mg/dL [facility] Potassium [Moles/Vol] 3.3 mmol/L Low 3.7 - 5.3 mmol/L [facility] Sodium [Moles/Vol] 140 mmol/L 135 - 144 mmol/L [facility] Urea nitrogen (BldV) [Mass/Vol] 7 mg/dL 6 - 20 mg/dL [facility] C-Reactive Proteinon 022 CRP [Mass/Vol] 161.7 mg/L High 0.0 - 5.0 mg/L [facility] CBC with Auto Differentialon 07-10-2021 Absolute [facility]os # 0.[address] [facility] [address] [facility] Absolute Immature Granulocyte 0.00 [facility] Absolute Lymph # 3.[address] [facility] Absolute [place] # 0.72 [facility] Basophils (Bld) [#/Vol] 0.00 10*3/uL [facility] Basophils/100 WBC (Bld) 0 % 0 - 2 % B [facility] Eosinophils/100 WBC (Bld) 1 % 1 - 4 % [facility] Hematocrit (Bld) [Volume fraction] 25.6 % Low 36.3 - 47.1 % [facility] Hemoglobin.gastrointest inal spec 1 Ql (Stl) 8.3 g/dL Low 11.9 - 15.1 g/dL [facility] Immature granulocytes/100 WBC (Bld) 0 % 0 [facility] Interpretation and review of laboratory results Abnormal [facility] Lymphocytes/100 WBC (Bld) 19 % Low 24 - 44 % [facility] MCH (RBC) [Entitic mass] 27.8 pg 25.2 - 33.5 pg [facility] MCHC (RBC) [Mass/Vol] 32.4 g/dL 28.4 - 34.8 g/dL [facility] MCV (RBC) [Entitic vol] 85.6 fL 82.6 - 102.9 fL [facility] Monocytes/100 WBC (Bld) 4 % 1 - 7 % B ON [facility] Morphology Malachi (Bld) [Interp] ANISOCYTOSIS PRESENT [facility] NRBC Automated 0.0 0.0 per 100 WBC [facility] Platelet distribution width (Bld) [Ratio] 20.4 % High 11.8 - 14.4 % [facility] Platelet mean volume (Bld) [Entitic vol] 9.0 fL 8.1 - 13.5 fL [facility] Platelets (Bld) [#/Vol] 530 10*3/uL High [facility] RBC (Bld) [#/Vol] 2.99 10*6/uL Low 3.95 - 5.1 1 m/uL [facility] Seg Neutrophils 76 % High 36 - 66 % [facility] Segs Absolute 13.60 High [facility] WBC (Bld) [#/Vol] 17.9 10*3/uL High [facility] COVID-19, Rapidon 07-10-2021 SARS-CoV-2 (COVID-19) RNA CAL+probe Ql (Unsp spec) Not detected Not Detected [facility] Specimen Description .NASOPHARYNGEAL SWAB [facility] CT CERVICAL SPINE WO CONTRAS Ton 07-10-2021 MHPN RIS CONSOLIDATED PN RIS CONSOLIDATED [facility] Work Phone: Radiology Study observation (narrative) [employer] Work Phone: CT CERVICAL SPINE WO CONTRAS TOrdered By: Earl Kohler on 07-10-2021 [employer] Work Phone: Insert PICC lineon 2 [employer] Work Phone: Magnesiumon 07-10-2021 Magnesium [Mass/Vol] 1.8 mg/dL 1.6 - 2 .6 mg/dL [facility] No Panel Informationon 07-10 Interpretation and review of laboratory results Abnormal [facility] [employer] POC Glucose Fingerstickon Glucose [Mass/Vol] 137 mg/dL High 65 - 105 mg/dL [facility] Interpretation and review of laboratory results Abnormal [facility] [employer] Glucose [Mass/Vol] 77 mg/dL 65 - 105 mg/dL [facility] [employer] XR CERVICAL SPINE FLEXION AN D EXTENSIONon 07-10-2021 [facility]PN RIS CONSOLIDATED [facility]PN RIS CONSOLIDATED [employer] Work Phone: [employer] Work Phone: Radiology Study observation (narrative) [employer] Work Phone: Basic Metabolic Panel w/ Ref rafael to MGon 07-09-2021 Anion gap [Moles/Vol] 11 mmol/L 9 - 17 mmol/L [employer] [facility] Calcium [Mass/Vol] 7.7 mg/dL Low 8.6 - 10. 4 mg/dL [employer] [facility] Chloride [Moles/Vol] 109 mmol/L High 98 - 10 7 mmol/L [employer] [facility] CO2 [Moles/Vol] 20 mmol/L 20 - 31 mmol/L [employer] [facility] Creatinine [Mass/Vol] 0.81 mg/dL 0.50 - 0.90 mg/dL [employer] GFR >60 >60 mL/min [facility] GFR Non- >60 >60 mL/min [facility] GFR/1.73 sq M.predicted MDRD (S/P/Bld) [Vol rate/Area] [facility] Glucose [Mass/Vol] 133 mg/dL High 70 - 99 mg/dL [facility] Potassium [Moles/Vol] 3.9 mmol/L 3.7 - 5.3 mmol/L [facility] Sodium [Moles/Vol] 140 mmol/L 135 - 144 mmol/L [facility] Urea nitrogen (BldV) [Mass/Vol] 7 mg/dL 6 - 20 mg/dL [facility] C-Reactive Proteinon 022 CRP [Mass/Vol] 124.1 mg/L High 0.0 - 5.0 mg/L [facility] CBC with Auto Differentialon 07-09-2021 Absolute Eos # 0.[address] [facility] Absolute Immature Granulocyte 0.08 [facility] Absolute Lymph # 2.[address] [facility] Absolute [place] # 0.48 [facility] Basophils (Bld) [#/Vol] 10*3/uL B ON [facility] Basophils/100 WBC (Bld) 0 % 0 - 2 % B ON [facility] Eosinophils/100 WBC (Bld) 4 % 1 - 4 % [facility] Hematocrit (Bld) [Volume fraction] 27.9 % Low 36.3 - 47.1 % [facility] Hemoglobin.gastrointest inal spec 1 Ql (Stl) 8.5 g/dL Low 11.9 - 15.1 g/dL [facility] Immature granulocytes/100 WBC (Bld) 1 % High 0 [facility] Interpretation and review of laboratory results Abnormal [facility] Lymphocytes/100 WBC (Bld) 18 % Low 24 - 43 % [facility] MCH (RBC) [Entitic mass] 27.3 pg 25.2 - 33.5 pg [facility] MCHC (RBC) [Mass/Vol] 30.5 g/dL 28.4 - 34.8 g/dL [facility] MCV (RBC) [Entitic vol] 89.7 fL 82.6 - 102.9 fL [facility] Monocytes/100 WBC (Bld) 4 % 3 - 12 % B ON [facility] NRBC Automated 0.0 0.0 per 100 WBC [facility] Platelet distribution width (Bld) [Ratio] 19.9 % High 11.8 - 14.4 % [facility] Platelet mean volume (Bld) [Entitic vol] 8.9 fL 8.1 - 13.5 fL [facility] Platelets (Bld) [#/Vol] 434 10*3/uL [facility] RBC (Bld) [#/Vol] 3.11 10*6/uL Low 3.95 - 5.1 1 m/uL [facility] RBC (Bld) [#/Vol] ANISOCYTOSIS PRESENT [facility] Seg Neutrophils 73 % High 36 - 65 % [facility] Segs Absolute 8.48 High [facility] WBC (Bld) [#/Vol] 11.5 10*3/uL High [facility] COVID-19, Rapidon 07-09-2021 SARS-CoV-2 (COVID-19) RNA CAL+probe Ql (Unsp spec) Not detected Not Detected [facility] Specimen Description .NASOPHARYNGEAL SWAB [facility] No Panel Informationon 07-09 Interpretation and review of laboratory results Abnormal [facility] POC Glucose Fingerstickon Glucose [Mass/Vol] 101 mg/dL 65 - 105 mg/dL [facility] Glucose [Mass/Vol] 146 mg/dL High 65 - 105 mg/dL [facility] Interpretation and review of laboratory results Abnormal [facility] Glucose [Mass/Vol] 99 mg/dL 65 - 105 mg/dL [facility] Glucose [Mass/Vol] 138 mg/dL High 65 - 105 mg/dL [facility] Interpretation and review of laboratory results Abnormal [facility] Glucose [Mass/Vol] 171 mg/dL High 65 - 105 mg/dL [facility] Interpretation and review of laboratory results Abnormal [facility] Glucose [Mass/Vol] 279 mg/dL High 65 - 105 mg/dL [facility] Interpretation and review of laboratory results Abnormal [facility] Glucose [Mass/Vol] 59 mg/dL Low 65 - 105 mg/dL [facility] Interpretation and review of laboratory results Abnormal [facility] Glucose [Mass/Vol] 59 mg/dL Low 65 - 105 mg/dL [facility] Interpretation and review of laboratory results Abnormal [facility] Glucose [Mass/Vol] 58 mg/dL Low 65 - 105 mg/dL [facility] Interpretation and review of laboratory results Abnormal [facility] Glucose [Mass/Vol] 306 mg/dL High 65 - 105 mg/dL [facility] Interpretation and review of laboratory results Abnormal [facility] Basic Metabolic Panel w/ Ref rafael to MGon 07-08-2021 Anion gap [Moles/Vol] 10 mmol/L 9 - 17 mmol/L [facility] Calcium [Mass/Vol] 7.3 mg/dL Low 8.6 - 10. 4 mg/dL [facility] [employer] Chloride [Moles/Vol] 108 mmol/L High 98 - 10 7 mmol/L [facility] [employer] CO2 [Moles/Vol] 20 mmol/L 20 - 31 mmol/L [facility] [employer] Creatinine [Mass/Vol] 0.83 mg/dL 0.50 - 0.90 mg/dL [facility] [employer] GFR >60 >60 mL/min [facility] GFR Non- >60 >60 mL/min [facility] GFR/1.73 sq M.predicted MDRD (S/P/Bld) [Vol rate/Area] [facility] Glucose [Mass/Vol] 141 mg/dL High 70 - 99 mg/dL [facility] Interpretation and review of laboratory results Abnormal [facility] Potassium [Moles/Vol] 2.9 mmol/L Critically low 3.7 - 5.3 mmol/L [facility] Sodium [Moles/Vol] 138 mmol/L 135 - 144 mmol/L [facility] Urea nitrogen (BldV) [Mass/Vol] 7 mg/dL 6 - 20 mg/dL [facility] C-Reactive Proteinon 022 CRP [Mass/Vol] 131.5 mg/L High 0.0 - 5.0 mg/L [facility] Interpretation and review of laboratory results Abnormal [facility] CBC with Auto Differentialon 07-08-2021 Absolute Eos # 0.[address] [facility] Absolute Immature Granulocyte 0.05 [facility] Absolute Lymph # 1.[address] [facility] Absolute [place] # 0.37 [facility] Basophils (Bld) [#/Vol] 10*3/uL B ON [facility] Basophils/100 WBC (Bld) 0 % 0 - 2 % B ON [facility] Eosinophils/100 WBC (Bld) 3 % 1 - 4 % [facility] Hematocrit (Bld) [Volume fraction] 21.5 % Low 36.3 - 47.1 % [facility] Hemoglobin.gastrointest inal spec 1 Ql (Stl) 6.9 g/dL Critically low 11.9 - 15.1 g/dL [facility] Immature granulocytes/100 WBC (Bld) 0 % 0 [facility] Interpretation and review of laboratory results Abnormal [facility] Lymphocytes/100 WBC (Bld) 17 % Low 24 - 43 % [facility] MCH (RBC) [Entitic mass] 27.5 pg 25.2 - 33.5 pg [facility] MCHC (RBC) [Mass/Vol] 32.1 g/dL 28.4 - 34.8 g/dL [facility] MCV (RBC) [Entitic vol] 85.7 fL 82.6 - 102.9 fL [facility] Monocytes/100 WBC (Bld) 3 % 3 - 12 % B ON [facility] NRBC Automated 0.0 0.0 per 100 WBC [facility] Platelet distribution width (Bld) [Ratio] 18.6 % High 11.8 - 14.4 % [facility] Platelet mean volume (Bld) [Entitic vol] 8.9 fL 8.1 - 13.5 fL [facility] Platelets (Bld) [#/Vol] 328 10*3/uL [facility] RBC (Bld) [#/Vol] 2.51 10*6/uL Low 3.95 - 5.1 1 m/uL [facility] RBC (Bld) [#/Vol] ANISOCYTOSIS PRESENT [facility] Seg Neutrophils 77 % High 36 - 65 % [facility] Segs Absolute 8.74 High [facility] WBC (Bld) [#/Vol] 11.4 10*3/uL High [facility] Culture, Urineon 07-08-2021 Bacteria identified Cx Nom (U) NO GROWTH [facility] Specimen Description .INDWELLING CATH URINE [facility] Bacteria identified Cx Nom (U) NO GROWTH [facility] Specimen Description .INDWELLING CATH URINE [facility] Hemoglobin and Hematocriton 07-08-2021 Hematocrit (Bld) [Volume fraction] 25.5 % Low 36.3 - 47.1 % [facility] Hemoglobin.gastrointest inal spec 1 Ql (Stl) 8.1 g/dL Low 11.9 - 15.1 g/dL [facility] Interpretation and review of laboratory results Abnormal [facility] MRI BRAIN W WO CONTRASTon MHPN RIS CONSOLIDATED MHPN RIS CONSOLIDATED [facility] Work Phone: MRI BRAIN W WO CONTRASTOrder ed By: Mai Villarreal on 07-08-2021 [facility] Work Phone: Magnesiumon 07-08-2021 Magnesium [Mass/Vol] 1.7 mg/dL 1.6 - 2 .6 mg/dL [facility] POC Glucose Fingerstickon Glucose [Mass/Vol] 139 mg/dL High 65 - 105 mg/dL [facility] Interpretation and review of laboratory results Abnormal [facility] Glucose [Mass/Vol] 140 mg/dL High 65 - 105 mg/dL [facility] Interpretation and review of laboratory results Abnormal [facility] Glucose [Mass/Vol] 192 mg/dL High 65 - 105 mg/dL [facility] Interpretation and review of laboratory results Abnormal [facility] Basic Metabolic Panel w/ Ref rafael to MGon 07-07-2021 Anion gap [Moles/Vol] 12 mmol/L 9 - 17 mmol/L [facility] Calcium [Mass/Vol] 7.8 mg/dL Low 8.6 - 10. 4 mg/dL [facility] Chloride [Moles/Vol] 106 mmol/L 98 - 10 7 mmol/L [facility] CO2 [Moles/Vol] 22 mmol/L 20 - 31 mmol/L [facility] Creatinine [Mass/Vol] 0.83 mg/dL 0.50 - 0.90 mg/dL [facility] GFR >60 >60 mL/min [facility] GFR Non- >60 >60 mL/min [facility] GFR/1.73 sq M.predicted MDRD (S/P/Bld) [Vol rate/Area] [facility] Glucose [Mass/Vol] 205 mg/dL High 70 - 99 mg/dL [facility] Potassium [Moles/Vol] 3.9 mmol/L 3.7 - 5.3 mmol/L [facility] Sodium [Moles/Vol] 140 mmol/L 135 - 144 mmol/L [facility] Urea nitrogen (BldV) [Mass/Vol] 8 mg/dL 6 - 20 mg/dL [facility] C-Reactive Proteinon 022 CRP [Mass/Vol] 141.9 mg/L High 0.0 - 5.0 mg/L [facility] CBC with Auto Differentialon 07-07-2021 Absolute Eos # <0.[address] [facility] Absolute Immature Granulocyte 0.[address] [facility] Absolute Lymph # 0.[address] [facility] Absolute [place] # 0.51 [facility] Basophils (Bld) [#/Vol] 10*3/uL [facility] Basophils/100 WBC (Bld) 0 % 0 - 2 % [facility] Eosinophils/100 WBC (Bld) 0 % Low 1 - 4 % [facility] Hematocrit (Bld) [Volume fraction] 27.9 % Low 36.3 - 47.1 % [facility] Hemoglobin.gastrointest inal spec 1 Ql (Stl) 9.2 g/dL Low 11.9 - 15.1 g/dL [facility] Immature granulocytes/100 WBC (Bld) 1 % High 0 [facility] Interpretation and review of laboratory results Abnormal [facility] Lymphocytes/100 WBC (Bld) 7 % Low 24 - 43 % [facility] MCH (RBC) [Entitic mass] 27.5 pg 25.2 - 33.5 pg [facility] MCHC (RBC) [Mass/Vol] 33.0 g/dL 28.4 - 34.8 g/dL [facility] MCV (RBC) [Entitic vol] 83.5 fL 82.6 - 102.9 fL [facility] Monocytes/100 WBC (Bld) 5 % 3 - 12 % B ON [facility] NRBC Automated 0.0 0.0 per 100 WBC [facility] Platelet distribution width (Bld) [Ratio] 17.2 % High 11.8 - 14.4 % [facility] Platelet mean volume (Bld) [Entitic vol] 9.1 fL 8.1 - 13.5 fL [facility] Platelets (Bld) [#/Vol] 372 10*3/uL [facility] RBC (Bld) [#/Vol] 3.34 10*6/uL Low 3.95 - 5.1 1 m/uL [facility] RBC (Bld) [#/Vol] ANISOCYTOSIS PRESENT [facility] Seg Neutrophils 88 % High 36 - 65 % [facility] Absolute 9.77 High [facility] WBC (Bld) [#/Vol] 11.1 10*3/uL [facility] Microscopic Urinalysison Bacteria, UA MANY Abnormal None [facility] Casts UA 10 TO 20 HYALINE Reference range defined for non-centrifuged specimen. [facility] Epithelial Cells UA 10 TO 20 [facility] Interpretation and review of laboratory results Abnormal [facility] RBC, UA 20 TO 50 [facility] WBC, UA 10 TO 20 [facility] No Panel Informationon 07-07 Interpretation and review of laboratory results Abnormal [facility] POC Glucose Fingerstickon Glucose [Mass/Vol] 126 mg/dL High 65 - 105 mg/dL [facility] Interpretation and review of laboratory results Abnormal [facility] Glucose [Mass/Vol] 163 mg/dL High 65 - 105 mg/dL [facility] Interpretation and review of laboratory results Abnormal [facility] Glucose [Mass/Vol] 132 mg/dL High 65 - 105 mg/dL [facility] Interpretation and review of laboratory results Abnormal [facility] TYPE AND SCREENon 07-07-2021 ABO/Rh Positive [facility] Arm Band Number BE [id number] [facility] Blood Bank Blood Product Expiration Date [facility] Blood Bank ISBT Product Blood Type 6200 [facility] Blood Bank Unit Type and Rh Positive [facility] Blood product type Nom (BPU) Leukocyte Reduced Red Cell [facility] Blood product unit ID (Dose) [#] [id number] [facility] Crossmatch Result [facility] Dispense Status TRANSFUSED [facility] Expiration Date 07/09/2021,2359 [facility] Product Code Blood Bank [id number] B ON [facility] Transfusion Status OK TO TRANSFUSE B ON [facility] Unit Divison 0 [facility] Unit Issue Date/Time [facility] Urinalysis with Reflex to Cu ltureon 07-07-2021 Bilirubin Urine Negative NEGATIVE [facility] Color, UA Yellow Yellow [facility] Glucose, Ur 1+ Abnormal NEGATIVE [facility] Interpretation and review of laboratory results Abnormal [facility] Ketones Ql (U) TRACE Abnormal NEGATIVE [facility] Leukocyte esterase Test strip Ql (U) Negative NEGATIVE [facility] Nitrite, Urine Negative NEGATIVE [facility] pH, UA 5.5 [facility] Protein, UA Negative NEGATIVE [facility] Specific Hustle, UA 1.024 [facility] Turbidity UA Clear Clear [facility] Urine Hgb MODERATE Abnormal NEGATIVE [facility] Urobilinogen, Urine Normal Normal [facility] Basic Metabolic Panel w/ Ref rafael to MGon 07-06-2021 Anion gap [Moles/Vol] 8 mmol/L Low 9 - 17 mmol/L [facility] Calcium [Mass/Vol] 8.1 mg/dL Low 8.6 - 10. 4 mg/dL [facility] Chloride [Moles/Vol] 102 mmol/L 98 - 10 7 mmol/L [facility] CO2 [Moles/Vol] 23 mmol/L 20 - 31 mmol/L [facility] Creatinine [Mass/Vol] 0.9 mg/dL 0.50 - 0.90 mg/dL [facility] GFR >60 >60 mL/min [facility] GFR Non- >60 >60 mL/min [facility] GFR/1.73 sq M.predicted MDRD (S/P/Bld) [Vol rate/Area] [facility] Glucose [Mass/Vol] 138 mg/dL High 70 - 99 mg/dL [facility] Interpretation and review of laboratory results Abnormal [facility] Potassium [Moles/Vol] 3.2 mmol/L Low 3.7 - 5.3 mmol/L [facility] Sodium [Moles/Vol] 133 mmol/L Low 135 - 144 mmol/L [facility] Urea nitrogen (BldV) [Mass/Vol] 7 mg/dL 6 - 20 mg/dL [facility] Blood Gas, Arterialon 2021 Adarsh Test INFORMATION NOT PROVIDED [facility] Carboxyhemoglobin 1.1 % 0 - 5 % [facility] FIO2 100% [facility] HCO3 (Bld) [Moles/Vol] 22.7 mmol/L 22 - 27 mmol/L [facility] Oxygen saturation in Blood 99.6 % 94 - 100 % [facility] pCO2, Arterial 27.4 Low [facility] [facility] pH, Arterial 7.529 High [facility] pO2, Arterial 277.0 High [facility] Positive Base Excess, Art 0.5 mmol/L 0.0 - 2.0 mmol/L [facility] Pt Temp 37.0 [facility] C-Reactive Proteinon 022 CRP [Mass/Vol] 183.8 mg/L High 0.0 - 5.0 mg/L [facility] Interpretation and review of laboratory results Abnormal [facility] CBC with Auto Differentialon 07-06-2021 Absolute Eos # 0.25 [facility] Absolute Immature Granulocyte 0.04 [facility] Absolute Lymph # 1.52 [facility] Absolute [place] # 0.43 [facility] Basophils (Bld) [#/Vol] 10*3/uL B ON [facility] Basophils/100 WBC (Bld) 0 % 0 - 2 % B ON [facility] Eosinophils/100 WBC (Bld) 3 % 1 - 4 % [facility] Hematocrit (Bld) [Volume fraction] 27.5 % Low 36.3 - 47.1 % [facility] Hemoglobin.gastrointest inal spec 1 Ql (Stl) 8.5 g/dL Low 11.9 - 15.1 g/dL [facility] Immature granulocytes/100 WBC (Bld) 1 % High 0 [facility] Interpretation and review of laboratory results Abnormal [facility] Lymphocytes/100 WBC (Bld) 20 % Low 24 - 43 % [facility] MCH (RBC) [Entitic mass] 26.0 pg 25.2 - 33.5 pg [facility] MCHC (RBC) [Mass/Vol] 30.9 g/dL 28.4 - 34.8 g/dL [facility] MCV (RBC) [Entitic vol] 84.1 fL 82.6 - 102.9 fL [facility] Monocytes/100 WBC (Bld) 6 % 3 - 12 % B ON [facility] NRBC Automated 0.0 0.0 per 100 WBC [facility] Platelet distribution width (Bld) [Ratio] 18.2 % High 11.8 - 14.4 % [facility] Platelet mean volume (Bld) [Entitic vol] 9.4 fL 8.1 - 13.5 fL [facility] Platelets (Bld) [#/Vol] 378 10*3/uL [facility] RBC (Bld) [#/Vol] 3.27 10*6/uL Low 3.95 - 5.1 1 m/uL [facility] RBC (Bld) [#/Vol] ANISOCYTOSIS PRESENT [facility] Seg Neutrophils 70 % High 36 - 65 % [facility] Segs Absolute 5.41 [facility] WBC (Bld) [#/Vol] 7.7 10*3/uL [facility] Calcium, Ionizedon 2 Calcium [Moles/Vol] 1.14 mmol/L 1.13 - 1 .33 mmol/L [facility] Calcium [Moles/Vol] 1.13 mmol/L 1.13 - 1 .33 mmol/L [facility] Chloride, Whole Bloodon 06-18 Chloride [Moles/Vol] 109 mmol/L 98 - 11 0 mmol/L [facility] Culture, Blood 1on 2 Bacteria identified Cx Nom (Unsp spec) Positive Abnormal [facility] Bacteria identified Cx Nom (Unsp spec) DIRECT GRAM STAIN FROM BOTTLE: GRAM POSITIVE COCCI IN CLUSTERS [facility] Bacteria identified Cx Nom (Unsp spec) STAPHYLOCOCCUS AUREUS For susceptibility, refer to previous culture. Abnormal [facility] Bacteria identified Cx Nom (Unsp spec) (NOTE) Direct Gram Stain from bottle result called to and read back by: RICH Miranda 07/05/21 0115 [facility] Interpretation and review of laboratory results Abnormal [facility] Special Requests R HAND 10ML [facility] Specimen Description .BLOOD [facility] Bacteria identified Cx Nom (Unsp spec) Positive Abnormal [facility] Bacteria identified Cx Nom (Unsp spec) DIRECT GRAM STAIN FROM BOTTLE: GRAM POSITIVE COCCI IN CLUSTERS [facility] Bacteria identified Cx Nom (Unsp spec) STAPHYLOCOCCUS AUREUS This isolate is methicillin susceptible. Abnormal [facility] Bacteria identified Cx Nom (Unsp spec) (NOTE) Direct Gram Stain from bottle result called to and read back by: RICH Miranda RN AT 0020 ON 07/05/21 [facility] Interpretation and review of laboratory results Abnormal [facility] Special Requests L HAND 20ML [facility] Specimen Description .BLOOD [facility] FLUORO FOR SURGICAL PROCEDUR ESon 07-06-2021 PN RIS CONSOLIDATED Glucose, Whole Bloodon 07-06 Glucose [Mass/Vol] 131 mg/dL High 65 - 105 mg/dL [facility] Magnesiumon 07-06-2021 Magnesium [Mass/Vol] 2.3 mg/dL 1.6 - 2 .6 mg/dL [facility] No Panel Informationon 07-06 [facility] Interpretation and review of laboratory results Abnormal [facility] OPEN HEART PANELon 2 Adarsh Test INFORMATION NOT PROVIDED [facility] Carboxyhemoglobin 0.8 % 0 - 5 % [facility] Chloride [Moles/Vol] 108 mmol/L 98 - 11 0 mmol/L [facility] FIO2 56% [facility] Glucose [Mass/Vol] 207 mg/dL High 65 - 105 mg/dL [facility] HCO3 (Bld) [Moles/Vol] 21.4 mmol/L Low 22 - 27 mmol/L [facility] Hematocrit (Bld) [Volume fraction] 30.6 % Low 36.3 - 47.1 % [facility] Hemoglobin.gastrointest inal spec 1 Ql (Stl) 9.9 Low [facility] Interpretation and review of laboratory results Abnormal [facility] Negative Base Excess, Art 2.3 mmol/L High 0.0 - 2.0 mmol/L [facility] Oxygen saturation in Blood 99.4 % 94 - 100 % [facility] pCO2, Arterial 34.8 [facility] pH, Arterial 7.406 [facility] pO2, Arterial 279.0 High [facility] Potassium [Moles/Vol] 3.7 mmol/L 3.6 - 5.0 mmol/L [facility] Pt Temp 35.9 [facility] Sodium [Moles/Vol] 140 mmol/L 136 - 145 mmol/L [facility] Open Heart H&Hon 07-06-2021 Hematocrit (Bld) [Volume fraction] 21.0 % Low 36.3 - 47.1 % [facility] Hemoglobin.gastrointest inal spec 1 Ql (Stl) 6.7 Critically low [facility] POC Glucose Fingerstickon Glucose [Mass/Vol] 192 mg/dL High 65 - 105 mg/dL [facility] Interpretation and review of laboratory results Abnormal [facility] Glucose [Mass/Vol] 136 mg/dL High 65 - 105 mg/dL [facility] Interpretation and review of laboratory results Abnormal [facility] Glucose [Mass/Vol] 132 mg/dL High 65 - 105 mg/dL [facility] Interpretation and review of laboratory results Abnormal [facility] Potassium, Whole Bloodon Potassium [Moles/Vol] 3.6 mmol/L 3.6 - 5.0 mmol/L [facility] Sodium, Whole Bloodon 2021 Sodium [Moles/Vol] 140 mmol/L 136 - 145 mmol/L [facility] Basic Metabolic Panel w/ Ref rafael to MGon 07-05-2021 Anion gap [Moles/Vol] 10 mmol/L 9 - 17 mmol/L [facility] Calcium [Mass/Vol] 8.4 mg/dL Low 8.6 - 10. 4 mg/dL [facility] Chloride [Moles/Vol] 101 mmol/L 98 - 10 7 mmol/L [facility] CO2 [Moles/Vol] 27 mmol/L 20 - 31 mmol/L [facility] Creatinine [Mass/Vol] 0.79 mg/dL 0.50 - 0.90 mg/dL [facility] GFR >60 >60 mL/min [facility] GFR Non- >60 >60 mL/min [facility] GFR/1.73 sq M.predicted MDRD (S/P/Bld) [Vol rate/Area] [facility] Glucose [Mass/Vol] 136 mg/dL High 70 - 99 mg/dL [facility] Interpretation and review of laboratory results Abnormal [facility] Potassium [Moles/Vol] 3.1 mmol/L Low 3.7 - 5.3 mmol/L [facility] Sodium [Moles/Vol] 138 mmol/L 135 - 144 mmol/L [facility] Urea nitrogen (BldV) [Mass/Vol] 7 mg/dL 6 - 20 mg/dL [facility] C-Reactive Proteinon 022 CRP [Mass/Vol] 186.3 mg/L High 0.0 - 5.0 mg/L [facility] Interpretation and review of laboratory results Abnormal [facility] CBC with Auto Differentialon 07-05-2021 Absolute Eos # 0.[address] [facility] Absolute Immature Granulocyte 0.06 [facility] Absolute Lymph # 2.[address] [facility] Absolute [place] # 0.43 [facility] Basophils (Bld) [#/Vol] 10*3/uL B ON [facility] Basophils/100 WBC (Bld) 0 % 0 - 2 % B ON [facility] Eosinophils/100 WBC (Bld) 2 % 1 - 4 % [facility] Hematocrit (Bld) [Volume fraction] 24.6 % Low 36.3 - 47.1 % [facility] Hemoglobin.gastrointest inal spec 1 Ql (Stl) 7.9 g/dL Low 11.9 - 15.1 g/dL [facility] Immature granulocytes/100 WBC (Bld) 1 % High 0 [facility] Interpretation and review of laboratory results Abnormal [facility] Lymphocytes/100 WBC (Bld) 26 % 24 - 43 % [facility] MCH (RBC) [Entitic mass] 26.5 pg 25.2 - 33.5 pg [facility] MCHC (RBC) [Mass/Vol] 32.1 g/dL 28.4 - 34.8 g/dL [facility] MCV (RBC) [Entitic vol] 82.6 fL 82.6 - 102.9 fL [facility] Monocytes/100 WBC (Bld) 4 % 3 - 12 % B ON [facility] NRBC Automated 0.0 0.0 per 100 WBC [facility] Platelet distribution width (Bld) [Ratio] 17.5 % High 11.8 - 14.4 % [facility] Platelet mean volume (Bld) [Entitic vol] 9.7 fL 8.1 - 13.5 fL [facility] Platelets (Bld) [#/Vol] 341 10*3/uL [facility] RBC (Bld) [#/Vol] 2.98 10*6/uL Low 3.95 - 5.1 1 m/uL [facility] RBC (Bld) [#/Vol] ANISOCYTOSIS PRESENT [facility] Seg Neutrophils 68 % High 36 - 65 % [facility] Segs Absolute 6.79 [facility] WBC (Bld) [#/Vol] 10.0 10*3/uL [facility] Culture, Blood 1on 05-202 2 Bacteria identified Cx Nom (Unsp spec) Positive Abnormal [facility] Bacteria identified Cx Nom (Unsp spec) DIRECT GRAM STAIN FROM BOTTLE: GRAM POSITIVE COCCI IN CLUSTERS [facility] Bacteria identified Cx Nom (Unsp spec) STAPHYLOCOCCUS AUREUS This isolate is methicillin susceptible. Abnormal [facility] Bacteria identified Cx Nom (Unsp spec) (NOTE) Direct Gram Stain from bottle result called to and read back by: VIRGIE Parker AT 0225 ON 07/04/21 [facility] Interpretation and review of laboratory results Abnormal [facility] Special Requests LT HAND 2ML [facility] [employer] Specimen Description .BLOOD [facility]ITAL[facility]idusCloud [facility]Code[facility]ko [facility] [place] MODIFIED BARIUM SWALLOW W VIDEOon 07-05-2021 [facility] RIS CONSOLIDATED PN RIS CONSOLIDATED [facility] Work Phone: [employer] Work Phone: Radiology Study observation (narrative) [employer] Work Phone: MRI BRAIN W WO CONTRASTon Radiology Study observation (narrative) [employer] Work Phone: MRI CERVICAL SPINE W WO CONT RASTon 07-05-2021 [facility] RIS CONSOLIDATED PN RIS CONSOLIDATED [employer] Work Phone: MRI CERVICAL SPINE W WO CONT RASTOrdered By: Fredi Ramirez on 07-05-[address] [facility] [employer] Work Phone: Magnesiumon 07-05-2021 Magnesium [Mass/Vol] 1.9 mg/dL 1.6 - 2 .6 mg/dL [facility] Myelin Basic Protein, CSFon 07-05-2021 Myelin Basic Protein, CSF 3.3 ng/mL 0.00 - 5.50 ng/mL [facility] POC Glucose Fingerstickon Glucose [Mass/Vol] 102 mg/dL 65 - 105 mg/dL [facility] Glucose [Mass/Vol] 185 mg/dL High 65 - 105 mg/dL [facility] Interpretation and review of laboratory results Abnormal [facility] Glucose [Mass/Vol] 134 mg/dL High 65 - 105 mg/dL [facility] Interpretation and review of laboratory results Abnormal [facility] Glucose [Mass/Vol] 147 mg/dL High 65 - 105 mg/dL [facility] Interpretation and review of laboratory results Abnormal [facility] Potassiumon 07-05-2021 Potassium [Moles/Vol] 3.8 mmol/L 3.7 - 5.3 mmol/L [facility] Basic Metabolic Panel w/ Ref rafael to MGon 07-04-2021 Anion gap [Moles/Vol] 10 mmol/L 9 - 17 mmol/L [facility] Calcium [Mass/Vol] 8.0 mg/dL Low 8.6 - 10. 4 mg/dL [facility] Chloride [Moles/Vol] 102 mmol/L 98 - 10 7 mmol/L [facility] CO2 [Moles/Vol] 26 mmol/L 20 - 31 mmol/L [facility] Creatinine [Mass/Vol] 0.72 mg/dL 0.50 - 0.90 mg/dL [facility] GFR >60 >60 mL/min [facility] GFR Non- >60 >60 mL/min [facility] GFR/1.73 sq M.predicted MDRD (S/P/Bld) [Vol rate/Area] [facility] Glucose [Mass/Vol] 122 mg/dL High 70 - 99 mg/dL [facility] Interpretation and review of laboratory results Abnormal [facility] Potassium [Moles/Vol] 3.5 mmol/L Low 3.7 - 5.3 mmol/L [facility] Sodium [Moles/Vol] 138 mmol/L 135 - 144 mmol/L [facility] Urea nitrogen (BldV) [Mass/Vol] 8 mg/dL 6 - 20 mg/dL [facility] C-Reactive Proteinon 022 CRP [Mass/Vol] 191.8 mg/L High 0.0 - 5.0 mg/L [facility] Interpretation and review of laboratory results Abnormal [facility] CBC with Auto Differentialon 07-04-2021 Absolute Eos # 0.[address] [facility] Absolute Immature Granulocyte 0.05 [facility] Absolute Lymph # 2.[address] [facility] [facility] Absolute [place] # 0.55 [facility] Basophils (Bld) [#/Vol] 10*3/uL B ON [facility] Basophils/100 WBC (Bld) 0 % 0 - 2 % B ON [facility] Eosinophils/100 WBC (Bld) 2 % 1 - 4 % [facility] Hematocrit (Bld) [Volume fraction] 22.8 % Low 36.3 - 47.1 % [facility] Hemoglobin.gastrointest inal spec 1 Ql (Stl) 7.4 g/dL Low 11.9 - 15.1 g/dL [facility] Immature granulocytes/100 WBC (Bld) 1 % High 0 [facility] Interpretation and review of laboratory results Abnormal [facility] Lymphocytes/100 WBC (Bld) 22 % Low 24 - 43 % [facility] MCH (RBC) [Entitic mass] 26.5 pg 25.2 - 33.5 pg [facility] MCHC (RBC) [Mass/Vol] 32.5 g/dL 28.4 - 34.8 g/dL [facility] MCV (RBC) [Entitic vol] 81.7 fL Low 82.6 - 102.9 fL [facility] Monocytes/100 WBC (Bld) 5 % 3 - 12 % B ON [facility] NRBC Automated 0.0 0.0 per 100 WBC [facility] Platelet distribution width (Bld) [Ratio] 16.9 % High 11.8 - 14.4 % [facility] Platelet mean volume (Bld) [Entitic vol] 9.0 fL 8.1 - 13.5 fL [facility] Platelets (Bld) [#/Vol] 231 10*3/uL [facility] RBC (Bld) [#/Vol] 2.79 10*6/uL Low 3.95 - 5.1 1 m/uL [facility] RBC (Bld) [#/Vol] ANISOCYTOSIS PRESENT [facility] Seg Neutrophils 71 % High 36 - 65 % [facility] Segs Absolute 7.32 [facility] WBC (Bld) [#/Vol] 10.4 10*3/uL [facility] S [facility] Culture, Blood 1on 2 Bacteria identified Cx Nom (Unsp spec) Positive Abnormal [facility] Bacteria identified Cx Nom (Unsp spec) DIRECT GRAM STAIN FROM BOTTLE: GRAM POSITIVE COCCI IN CLUSTERS [facility] Bacteria identified Cx Nom (Unsp spec) Staphylococcus aureus Detected: mecA/C and MREJ Not Detected Methodology- Polymerase Chain Reaction (PCR) [facility] Bacteria identified Cx Nom (Unsp spec) STAPHYLOCOCCUS AUREUS Abnormal [facility] Bacteria identified Cx Nom (Unsp spec) (NOTE) Direct Gram Stain from bottle and Polymerase Chain Reaction (PCR) results called to and read back by: VIRGIE Joaquin on 07/03/21 at 7:45 [facility] Interpretation and review of laboratory results Abnormal [facility] Special Requests L HAND 1 ML [facility] Specimen Description .BLOOD [facility] MISCELLANEOUS TESTINGon 06-17 Send Out Report PERFORMED AT [facility] Test Name [place] ENC2 CSF [facility] MRI CERVICAL SPINE W WO CONT RASTon 07-04-2021 Radiology Study observation (narrative) [facility] Work Phone: Magnesiumon 07-04-2021 Magnesium [Mass/Vol] 1.8 mg/dL 1.6 - 2 .6 mg/dL [facility] POC Glucose Fingerstickon Glucose [Mass/Vol] 113 mg/dL High 65 - 105 mg/dL [facility] Interpretation and review of laboratory results Abnormal [facility] Glucose [Mass/Vol] 188 mg/dL High 65 - 105 mg/dL [facility] Interpretation and review of laboratory results Abnormal [facility] Glucose [Mass/Vol] 118 mg/dL High 65 - 105 mg/dL [facility] Interpretation and review of laboratory results Abnormal [facility] Glucose [Mass/Vol] 135 mg/dL High 65 - 105 mg/dL [facility] Interpretation and review of laboratory results Abnormal [facility] Basic Metabolic Panel w/ Ref rafael to MGon 07-03-2021 Anion gap [Moles/Vol] 11 mmol/L 9 - 17 mmol/L [facility] Calcium [Mass/Vol] 8.3 mg/dL Low 8.6 - 10. 4 mg/dL [facility] Chloride [Moles/Vol] 98 mmol/L 98 - 10 7 mmol/L [facility] CO2 [Moles/Vol] 25 mmol/L 20 - 31 mmol/L [facility] Creatinine [Mass/Vol] 0.81 mg/dL 0.50 - 0.90 mg/dL [facility] GFR >60 >60 mL/min [facility] GFR Non- >60 >60 mL/min [facility] GFR/1.73 sq M.predicted MDRD (S/P/Bld) [Vol rate/Area] [facility] Glucose [Mass/Vol] 108 mg/dL High 70 - 99 mg/dL [facility] Interpretation and review of laboratory results Abnormal [facility] Potassium [Moles/Vol] 2.9 mmol/L Critically low 3.7 - 5.3 mmol/L [facility] Sodium [Moles/Vol] 134 mmol/L Low 135 - 144 mmol/L [facility] Urea nitrogen (BldV) [Mass/Vol] 7 mg/dL 6 - 20 mg/dL [facility] C-Reactive Proteinon 022 CRP [Mass/Vol] 166.3 mg/L High 0.0 - 5.0 mg/L [facility] Interpretation and review of laboratory results Abnormal [facility] CBC with Auto Differentialon 07-03-2021 Absolute Eos # 0.[address] [facility] Absolute Immature Granulocyte 0.09 [facility] Absolute Lymph # 2.[address] [facility] Absolute [place] # 0.64 [facility] Basophils (Bld) [#/Vol] 10*3/uL B ON [facility] Basophils/100 WBC (Bld) 0 % 0 - 2 % B ON [facility] Eosinophils/100 WBC (Bld) 1 % 1 - 4 % [facility] Hematocrit (Bld) [Volume fraction] 26.1 % Low 36.3 - 47.1 % [facility] Hemoglobin.gastrointest inal spec 1 Ql (Stl) 8.4 g/dL Low 11.9 - 15.1 g/dL [facility] Immature granulocytes/100 WBC (Bld) 1 % High 0 [facility] Interpretation and review of laboratory results Abnormal [facility] Lymphocytes/100 WBC (Bld) 18 % Low 24 - 43 % [facility] MCH (RBC) [Entitic mass] 26.1 pg 25.2 - 33.5 pg [facility] MCHC (RBC) [Mass/Vol] 32.2 g/dL 28.4 - 34.8 g/dL [facility] MCV (RBC) [Entitic vol] 81.1 fL Low 82.6 - 102.9 fL [facility] Monocytes/100 WBC (Bld) 5 % 3 - 12 % B ON [facility] NRBC Automated 0.0 0.0 per 100 WBC [facility] Platelet distribution width (Bld) [Ratio] 16.5 % High 11.8 - 14.4 % [facility] Platelet mean volume (Bld) [Entitic vol] 8.8 fL 8.1 - 13.5 fL [facility] Platelets (Bld) [#/Vol] 261 10*3/uL [facility] RBC (Bld) [#/Vol] 3.22 10*6/uL Low 3.95 - 5.1 1 m/uL [facility] RBC (Bld) [#/Vol] ANISOCYTOSIS PRESENT [facility] Seg Neutrophils 75 % High 36 - 65 % [facility] Segs Absolute 10.31 High [facility] WBC (Bld) [#/Vol] 13.6 10*3/uL High [facility] Culture, Blood 1on 2 Bacteria identified Cx Nom (Unsp spec) Positive Abnormal [facility] Bacteria identified Cx Nom (Unsp spec) DIRECT GRAM STAIN FROM BOTTLE: GRAM POSITIVE COCCI IN CLUSTERS [facility] Bacteria identified Cx Nom (Unsp spec) STAPHYLOCOCCUS AUREUS This isolate is methicillin susceptible. Abnormal [facility] Bacteria identified Cx Nom (Unsp spec) (NOTE) Direct Gram Stain from bottle result called to and read back by: VIRGIE Noland at 2200 on 07.01.2021 [facility] Interpretation and review of laboratory results Abnormal [facility] Specimen Description .BLOOD [facility] ECHO Complete 2D W Doppler W Coloron 07-03-2021 [facility] STV CPACS [facility] Work Phone: ECHO Complete 2D W Doppler W ColorOrdered By: Sintia Salazar on 07-03-2021 [facility] Work Phone: [place] MODIFIED BARIUM SWALLOW W VIDEOon 07-03-2021 [facility] RIS CONSOLIDATED [facility] R[facility] CONSOL[facility] Work Phone: Radiology Study observation (narrative) [facility] Work Phone: [place] MODIFIED BARIUM SWALLOW W VIDEOOrdered By: Rufus Burnette on 07-03-2021 [facility] Work Phone: Hemoglobin and Hematocriton 07-03-2021 Hematocrit (Bld) [Volume fraction] 24.2 % Low 36.3 - 47.1 % [facility] Hemoglobin.gastrointest inal spec 1 Ql (Stl) 7.8 g/dL Low 11.9 - 15.1 g/dL [facility] Interpretation and review of laboratory results Abnormal [facility] Herpes simplex virus PCRon 0 5-17-2022 HSV, PCR Not detected [facility]ALT[facility] Magnesiumon 07-03-2021 Magnesium [Mass/Vol] 2.0 mg/dL 1.6 - 2 .6 mg/dL [facility] NM BONE SCAN 3 PHASEon 07-03 [facility] RIS CONSOLIDATED [facility] RIS CONSOLIDATED [facility]Cloud [facility] Work Phone: Radiology Study observation (narrative) ARASELI HATFIELD DrAvailable Work Phone: NM BONE SCAN 3 PHASEOrdered By: Joanne Duke on 07-03-2021 [employer] [facility] [employer] Work Phone: POC Glucose Fingerstickon Glucose [Mass/Vol] 146 mg/dL High 65 - 105 mg/dL [facility] [employer] Interpretation and review of laboratory results Abnormal [facility]ITAL[facility] Glucose [Mass/Vol] 108 mg/dL High 65 - 105 mg/dL [facility] Interpretation and review of laboratory results Abnormal [facility] Glucose [Mass/Vol] 168 mg/dL High 65 - 105 mg/dL [facility] Interpretation and review of laboratory results Abnormal [facility] BabyJunk, [facility]OH[facility] Glucose [Mass/Vol] 111 mg/dL High 65 - 105 mg/dL [facility] Interpretation and review of laboratory results Abnormal [facility]ra[facility] Potassiumon 07-03-2021 Interpretation and review of laboratory results Abnormal [facility] Potassium [Moles/Vol] 3.4 mmol/L Low 3.7 - 5.3 mmol/L [facility]ITALTouraATRIUM HEALTH UNIVERSITY CITYAlibaba Pictures [employer] Limited XR CERVICAL SPINE FLEXION AN D EXTENSIONon 07-03-2021 PN RIS CONSOLIDATED PN RIS CONSOLIDATED [facility] Work Phone: Radiology Study observation (narrative) ARASELI WOLF [employer] Work Phone: XR CERVICAL SPINE FLEXION AN D EXTENSIONOrdered By: Chanda Garland on 07-03-2021 [facility] Work Phone: Basic Metabolic Panel w/ Ref rafael to MGon 07-02-2021 Anion gap [Moles/Vol] 11 mmol/L 9 - 17 mmol/L [facility] Calcium [Mass/Vol] 8.0 mg/dL Low 8.6 - 10. 4 mg/dL [facility] Chloride [Moles/Vol] 98 mmol/L 98 - 10 7 mmol/L [facility] CO2 [Moles/Vol] 25 mmol/L 20 - 31 mmol/L [facility] Creatinine [Mass/Vol] 0.66 mg/dL 0.50 - 0.90 mg/dL [facility] GFR >60 >60 mL/min [facility] GFR Non- >60 >60 mL/min [facility] GFR/1.73 sq M.predicted MDRD (S/P/Bld) [Vol rate/Area] [facility] Glucose [Mass/Vol] 67 mg/dL Low 70 - 99 mg/dL [facility] Interpretation and review of laboratory results Abnormal [facility] Potassium [Moles/Vol] 2.9 mmol/L Critically low 3.7 - 5.3 mmol/L [facility] Sodium [Moles/Vol] 134 mmol/L Low 135 - 144 mmol/L [facility] Urea nitrogen (BldV) [Mass/Vol] 9 mg/dL 6 - 20 mg/dL [facility] C-Reactive Proteinon 022 CRP [Mass/Vol] 61.4 mg/L High 0.0 - 5.0 mg/L [facility] Interpretation and review of laboratory results Abnormal [facility] CBC with Auto Differentialon 07-02-2021 Absolute Eos # 0.[address] Absolute Immature Granulocyte 0.11 [facility] Absolute Lymph # 3.[address] [facility] Absolute [place] # 0.69 [facility] Basophils (Bld) [#/Vol] 10*3/uL B ON [facility] Basophils/100 WBC (Bld) 0 % 0 - 2 % B ON [facility] Eosinophils/100 WBC (Bld) 2 % 1 - 4 % [facility] Hematocrit (Bld) [Volume fraction] 28.2 % Low 36.3 - 47.1 % [facility] Hemoglobin.gastrointest inal spec 1 Ql (Stl) 9.0 g/dL Low 11.9 - 15.1 g/dL [facility] Immature granulocytes/100 WBC (Bld) 1 % High 0 [facility] Interpretation and review of laboratory results Abnormal [facility] Lymphocytes/100 WBC (Bld) 21 % Low 24 - 43 % [facility] MCH (RBC) [Entitic mass] 25.9 pg 25.2 - 33.5 pg [facility] MCHC (RBC) [Mass/Vol] 31.9 g/dL 28.4 - 34.8 g/dL [facility] MCV (RBC) [Entitic vol] 81.3 fL Low 82.6 - 102.9 fL [facility] Monocytes/100 WBC (Bld) 4 % 3 - 12 % B ON [facility] NRBC Automated 0.0 0.0 per 100 WBC [facility] Platelet distribution width (Bld) [Ratio] 16.3 % High 11.8 - 14.4 % [facility] Platelet mean volume (Bld) [Entitic vol] 8.8 fL 8.1 - 13.5 fL [facility] Platelets (Bld) [#/Vol] 299 10*3/uL [facility] RBC (Bld) [#/Vol] 3.47 10*6/uL Low 3.95 - 5.1 1 m/uL [facility] RBC (Bld) [#/Vol] ANISOCYTOSIS PRESENT [facility] Seg Neutrophils 72 % High 36 - 65 % [facility] Segs Absolute 12.06 High [facility] WBC (Bld) [#/Vol] 16.7 10*3/uL High [facility] Culture, Blood 1on [id number] 2 Bacteria identified Cx Nom (Unsp spec) Positive Abnormal [facility] Bacteria identified Cx Nom (Unsp spec) DIRECT GRAM STAIN FROM BOTTLE: GRAM POSITIVE COCCI IN CLUSTERS [facility] Bacteria identified Cx Nom (Unsp spec) STAPHYLOCOCCUS AUREUS This isolate is methicillin susceptible. Abnormal [facility] Bacteria identified Cx Nom (Unsp spec) (NOTE) Direct Gram Stain from bottle result called to and read back by: VIRGIE Ferraro AT 2058 ON 06/30/21 [facility] Interpretation and review of laboratory results Abnormal [facility] Special Requests LT HAND 9ML [facility] Specimen Description .BLOOD [facility] Hemoglobin and Hematocriton 07-02-2021 Hematocrit (Bld) [Volume fraction] 24.8 % Low 36.3 - 47.1 % [facility] Hemoglobin.gastrointest inal spec 1 Ql (Stl) 8.1 g/dL Low 11.9 - 15.1 g/dL [facility] Interpretation and review of laboratory results Abnormal [facility] Hematocrit (Bld) [Volume fraction] 29.0 % Low 36.3 - 47.1 % [facility] Hemoglobin.gastrointest inal spec 1 Ql (Stl) 9.1 g/dL Low 11.9 - 15.1 g/dL [facility] Interpretation and review of laboratory results Abnormal [facility] Magnesiumon 07-02-2021 Magnesium [Mass/Vol] 2.3 mg/dL 1.6 - 2 .6 mg/dL [facility] POC Glucose Fingerstickon Glucose [Mass/Vol] 122 mg/dL High 65 - 105 mg/dL [facility] Interpretation and review of laboratory results Abnormal [facility] Glucose [Mass/Vol] 105 mg/dL 65 - 105 mg/dL [facility] Glucose [Mass/Vol] 113 mg/dL High 65 - 105 mg/dL [facility] Interpretation and review of laboratory results Abnormal [facility] Glucose [Mass/Vol] 78 mg/dL 65 - 105 mg/dL [facility] Glucose [Mass/Vol] 111 mg/dL High 65 - 105 mg/dL [facility] Interpretation and review of laboratory results Abnormal [facility] Potassiumon 07-02-2021 Interpretation and review of laboratory results Abnormal [facility] Potassium [Moles/Vol] 3.5 mmol/L Low 3.7 - 5.3 mmol/L [facility] Interpretation and review of laboratory results Abnormal [facility] Potassium [Moles/Vol] 3.5 mmol/L Low 3.7 - 5.3 mmol/L [facility] Basic Metabolic Panel w/ Ref rafael to MGon 07-01-2021 Anion gap [Moles/Vol] 10 mmol/L 9 - 17 mmol/L [facility] Calcium [Mass/Vol] 8.2 mg/dL Low 8.6 - 10. 4 mg/dL [facility] Chloride [Moles/Vol] 102 mmol/L 98 - 10 7 mmol/L [facility] CO2 [Moles/Vol] 25 mmol/L 20 - 31 mmol/L [facility] Creatinine [Mass/Vol] 0.97 mg/dL High 0.50 - 0.90 mg/dL [facility] GFR >60 >60 mL/min [facility] GFR Non- 59 mL/min Low >60 [facility] GFR/1.73 sq M.predicted MDRD (S/P/Bld) [Vol rate/Area] [facility] Glucose [Mass/Vol] 117 mg/dL High 70 - 99 mg/dL [facility] Interpretation and review of laboratory results Abnormal [facility] Potassium [Moles/Vol] 2.2 mmol/L Critically low 3.7 - 5.3 mmol/L [facility] Sodium [Moles/Vol] 137 mmol/L 135 - 144 mmol/L [facility] Urea nitrogen (BldV) [Mass/Vol] 18 mg/dL 6 - 20 mg/dL [facility] C-Reactive Proteinon 022 CRP [Mass/Vol] 38.5 mg/L High 0.0 - 5.0 mg/L [facility] Interpretation and review of laboratory results Abnormal [facility] CBC with Auto Differentialon 07-01-2021 Absolute Eos # 0.[address] [facility] Absolute Immature Granulocyte 0.00 [facility] Absolute Lymph # 2.[address] [facility] Absolute [place] # 0.[address] [facility] Basophils (Bld) [#/Vol] 0.00 10*3/uL [facility] Basophils/100 WBC (Bld) 0 % 0 - 2 % B ON [facility] Eosinophils/100 WBC (Bld) 0 % Low 1 - 4 % [facility] Hematocrit (Bld) [Volume fraction] 28.4 % Low 36.3 - 47.1 % [facility] Hemoglobin.gastrointest inal spec 1 Ql (Stl) 9.0 g/dL Low 11.9 - 15.1 g/dL [facility] Immature granulocytes/100 WBC (Bld) 0 % 0 [facility] Interpretation and review of laboratory results Abnormal [facility] Lymphocytes/100 WBC (Bld) 17 % Low 24 - 44 % [facility] MCH (RBC) [Entitic mass] 26.2 pg 25.2 - 33.5 pg [facility] MCHC (RBC) [Mass/Vol] 31.7 g/dL 28.4 - 34.8 g/dL [facility] MCV (RBC) [Entitic vol] 82.8 fL 82.6 - 102.9 fL [facility] Monocytes/100 WBC (Bld) 6 % 1 - 7 % B ON [facility] Morphology Malachi (Bld) [Interp] ANISOCYTOSIS PRESENT [facility] NRBC Automated 0.0 0.0 per 100 WBC [facility] Platelet distribution width (Bld) [Ratio] 16.2 % High 11.8 - 14.4 % [facility] Platelet mean volume (Bld) [Entitic vol] 8.8 fL 8.1 - 13.5 fL [facility] Platelets (Bld) [#/Vol] 284 10*3/uL [facility] RBC (Bld) [#/Vol] 3.43 10*6/uL Low 3.95 - 5.1 1 m/uL [facility] Seg Neutrophils 77 % High 36 - 66 % [facility] Segs Absolute 9.70 High [facility] WBC (Bld) [#/Vol] 12.6 10*3/uL High [facility] Culture, CSFon 07-01-2021 Bacteria identified Cx Nom (Unsp spec) NO GROWTH 3 DAYS [facility] Direct Exam NO NEUTROPHILS SEEN [facility] Direct Exam NO ORGANISMS SEEN [facility] Direct Exam Gram stain made from cytocentrifuged specimen. Organisms and cells will be concentrated. [facility] Specimen Description .CSF [facility] Hemoglobin and Hematocriton 07-01-2021 Hematocrit (Bld) [Volume fraction] 27.2 % Low 36.3 - 47.1 % [facility] Hemoglobin.gastrointest inal spec 1 Ql (Stl) 8.8 g/dL Low 11.9 - 15.1 g/dL [facility] Interpretation and review of laboratory results Abnormal [facility] Hematocrit (Bld) [Volume fraction] 26.7 % Low 36.3 - 47.1 % [facility] Hemoglobin.gastrointest inal spec 1 Ql (Stl) 8.6 g/dL Low 11.9 - 15.1 g/dL [facility] Interpretation and review of laboratory results Abnormal [facility] Lyme Disease AB, CSFon 07-01 B burgdorferi Ab,CSF 0.02 <=0.99 [place] Magnesiumon 07-01-2021 Magnesium [Mass/Vol] 1.9 mg/dL 1.6 - 2 .6 mg/dL [facility] Magnesium [Mass/Vol] 2.0 mg/dL 1.6 - 2 .6 mg/dL [facility] Oligoclonal Bandson 07-02-19 22 CSF Isoelectric Focusing Interpretation See Note [facility] Oligo Bands Negative [facility] Oligoclonal Bands Number Matching [facility] POC Glucose Fingerstickon Glucose [Mass/Vol] 84 mg/dL 65 - 105 mg/dL [facility] Glucose [Mass/Vol] 104 mg/dL 65 - 105 mg/dL [facility] Glucose [Mass/Vol] 65 mg/dL 65 - 105 mg/dL [facility] Glucose [Mass/Vol] 107 mg/dL High 65 - 105 mg/dL [facility] Interpretation and review of laboratory results Abnormal [facility] Glucose [Mass/Vol] 115 mg/dL High 65 - 105 mg/dL [facility] Interpretation and review of laboratory results Abnormal [facility] Potassiumon 07-01-2021 Interpretation and review of laboratory results Abnormal [facility] Potassium [Moles/Vol] 2.5 mmol/L Critically low 3.7 - 5.3 mmol/L [facility] Interpretation and review of laboratory results Abnormal [facility] Potassium [Moles/Vol] 2.4 mmol/L Critically low 3.7 - 5.3 mmol/L [facility] Quantiferon TB Goldon 2021 QuantiFERON Mitogen 1.11 IU/mL [facility] QuantiFERON Nil 0.02 IU/mL [facility] Quantiferon TB Minus NIL Negative Negative [facility] Quantiferon TB1 Minus NIL 0.00 [facility] Quantiferon TB2 Minus NIL 0.00 [facility] West Nile Virus, CSFon 07-01 [place] AB IGG CSF 0.19 <=1.29 IV [facility] [place] AB IGM CSF 0 <=0.89 IV [facility] Culture, Blood 1on 2 Bacteria identified Cx Nom (Unsp spec) Positive Abnormal [facility] Bacteria identified Cx Nom (Unsp spec) DIRECT GRAM STAIN FROM BOTTLE: GRAM POSITIVE COCCI IN CLUSTERS [facility] Bacteria identified Cx Nom (Unsp spec) Staphylococcus aureus Detected: mecA/C and MREJ Not Detected [facility] Bacteria identified Cx Nom (Unsp spec) STAPHYLOCOCCUS AUREUS This isolate is methicillin susceptible. Abnormal [facility] Bacteria identified Cx Nom (Unsp spec) (NOTE) Direct Gram Stain from bottle and Polymerase Chain Reaction (PCR) results called to and read back by: Dino Casillas at 0248 on 06/29/2021. [facility] Special Requests RT FA 3 ML [facility] Specimen Description .BLOOD [facility] Culture, Blood 2on 2 Bacteria identified Cx Nom (Unsp spec) Positive Abnormal [facility] Bacteria identified Cx Nom (Unsp spec) DIRECT GRAM STAIN FROM BOTTLE: GRAM POSITIVE COCCI IN CLUSTERS [facility] Bacteria identified Cx Nom (Unsp spec) STAPHYLOCOCCUS AUREUS For susceptibility, refer to previous culture. Abnormal [facility] Bacteria identified Cx Nom (Unsp spec) (NOTE) Direct Gram Stain from bottle result called to and read back by: Dino Casillas at 0245 on 06/29/2021. [facility] Interpretation and review of laboratory results Abnormal [facility] Special Requests LEFT HAND 1 ML [facility] Specimen Description .BLOOD [facility] Hemoglobin and Hematocriton 06-30-2021 Hematocrit (Bld) [Volume fraction] 29.3 % Low 36.3 - 47.1 % [facility] Hemoglobin.gastrointest inal spec 1 Ql (Stl) 9.4 g/dL Low 11.9 - 15.1 g/dL [facility] Interpretation and review of laboratory results Abnormal [facility] POC Glucose Fingerstickon Glucose [Mass/Vol] 173 mg/dL High 65 - 105 mg/dL [facility] Interpretation and review of laboratory results Abnormal [facility] Glucose [Mass/Vol] 182 mg/dL High 65 - 105 mg/dL [facility] Interpretation and review of laboratory results Abnormal [facility] Glucose [Mass/Vol] 171 mg/dL High 65 - 105 mg/dL [facility] Interpretation and review of laboratory results Abnormal [facility] XR FOOT LEFT (MIN 3 VIEWS)on 06-30-2021 [facility] RIS CONSOLIDATED [facility] RIS CONSOLIDATED [facility] Work Phone: XR FOOT LEFT (MIN 3 VIEWS)Or dered By: Enedelia Garcia on 06-30-2021 [facility] [employer] Work Phone: Acetaminophen Levelon 2021 Acetaminophen Level <5 Low 10 - 30 ug/mL [facility] Ammoniaon 06-28-2021 Ammonia (P) [Moles/Vol] 12 umol/L 11 - 51 umol/L [facility] CBC with Auto Differentialon 06-28-2021 Absolute Bands # 0.43 [facility] Absolute Eos # [facility] Absolute Lymph # 1.51 [facility] Absolute [place] # 1.08 High [facility] Bands 2 % 0 - 10 % [facility] Basophils (Bld) [#/Vol] 0 - 2 % [facility] Basophils Absolute [facility] Eosinophils % 0 - 5 % [facility] Hematocrit (Bld) [Volume fraction] 30.9 % Low 36 - 46 % [facility] Hemoglobin.gastrointest inal spec 1 Ql (Stl) 10.1 g/dL Low 12.0 - 16.0 g/dL [facility] Interpretation and review of laboratory results Abnormal [facility] Lymphocytes/100 WBC (Bld) 7 % Low 15 - 40 % [facility] MCH (RBC) [Entitic mass] 26.2 pg 26 - 34 pg [facility] MCHC (RBC) [Mass/Vol] 32.6 g/dL 31 - 3 7 g/dL [facility] MCV (RBC) [Entitic vol] 80.5 fL 80 - 100 fL [facility] Monocytes/100 WBC (Bld) 5 % 4 - 8 % [facility] [employer] Morphology Malachi (Bld) [Interp] Manual Differential Performed [facility] Platelet distribution width (Bld) [Ratio] 17.1 % High 12.1 - 15.2 % [facility] Platelets (Bld) [#/Vol] 537 10*3/uL High [facility] RBC (Bld) [#/Vol] 3.83 10*6/uL Low 4.0 - 5.2 m/uL [facility] Segmented neutrophils/100 WBC (Bld) 86 % High 47 - 75 % [facility] Segs Absolute 18.48 [facility] WBC (Bld) [#/Vol] 21.5 10*3/uL Critically high [facility] CKon 06-28-2021 CK [Catalytic activity/Vol] 63 U/L 26 - 192 U/L [facility] COVID-19, Rapidon 06-28-2021 SARS-CoV-2 (COVID-19) RNA CAL+probe Ql (Unsp spec) Not detected Not Detected [facility] Comment on above: Rapid NAAT: The [...] management decisions. Fact sheet for Healthcare Providers: https://www.fda.gov/media/923986/download Fact sheet for Patients: https://www.fda.gov/media/534302/download Methodology: Isothermal Nucleic Acid Amplification Specimen Description .NASOPHARYNGEAL SWAB [facility] CT ABDOMEN PELVIS W IV CONTR AST [...] 2. Normal appendix. 3. Status post cholecystectomy. [place] Phone: Radiology Study observation (narrative) [place] Phone: CT ABDOMEN PELVIS W IV CONTR AST Additional Contrast? NoneOrdered By: Charly Mendoza on 06-28-2021 [employer] [facility] Work Phone: CT Head WO Contraston 2021 1. Poorly diagnostic examination due to patient motion. 2. No gross evidence of hemorrhage or mass effect. A telephone call regarding the findings in examination and limitations the study was made to and acknowledged by Dr. Boothe in the emergency department at 4:55 AM on 06/28/2021. [facility] INDICATION: 56 years old; [...] evaluated in the present study. OTHER: None. [facility] MaguireKike - 06/28/2021 INDICATION: [...] emergency department at 4:55 AM on 06/28/2021. [employer] Work Phone: Radiology Study observation (narrative) [employer] Work Phone: CT Head WO ContrastOrdered B y: Kike Maguire on 06-28-2021 [employer] Work Phone: Comprehensive Metabolic Pane l w/ Reflex to MGon 06-28-2021 Albumin [Mass/Vol] 4 g/dL 3.5 - 5.2 g/dL [facility] ALP (Bld) [Catalytic activity/Vol] 290 U/L High 35 - 104 U/L [facility] ALT [Catalytic activity/Vol] 25 U/L 5 - 33 U/L [facility] Anion gap [Moles/Vol] 16 mmol/L 9 - 17 mmol/L [facility] AST [Catalytic activity/Vol] 16 U/L <32 [facility] Bilirubin [Mass/Vol] 0.45 mg/dL 0.30 - 1.20 mg/dL [facility] Calcium [Mass/Vol] 9.9 mg/dL 8.6 - 10. 4 mg/dL [facility] Chloride [Moles/Vol] 95 mmol/L Low 98 - 10 7 mmol/L [facility] CO2 [Moles/Vol] 27 mmol/L 20 - 31 mmol/L [facility] Creatinine [Mass/Vol] 0.89 mg/dL 0.50 - 0.90 mg/dL [facility] Free PSA/Total PSA [Mass fraction] 8.5 g/dL High 6.4 - 8.3 g/dL [facility] GFR >60 >60 mL/min [place] GFR Non- >60 >60 mL/min [facility] GFR/1.73 sq M.predicted MDRD (S/P/Bld) [Vol rate/Area] [facility] Comment on above: Average GFR for 50-5 9 years old: 93 mL/min/1.73sq m Chronic Kidney Disease: <60 mL/min/1.73sq m Kidney failure: <15 mL/min/1.73sq m eGFR calculated using average adult body mass. Additional eGFR calculator available at: http://www.COH/multiple_crcl_2012.htm Glucose [Mass/Vol] 268 mg/dL High 70 - 99 mg/dL [facility] Interpretation and review of laboratory results Abnormal [facility] Potassium [Moles/Vol] 3.4 mmol/L Low 3.7 - 5.3 mmol/L [facility] Sodium [Moles/Vol] 138 mmol/L 135 - 144 mmol/L [facility] Urea nitrogen (BldV) [Mass/Vol] 25 mg/dL High 6 - 20 mg/dL [facility] [facility] Urea nitrogen/Creatinine (Bld) [Mass ratio] 28 [facility] Ethanolon 06-28-2021 Ethanol [Mass/Vol] mg/dL <10 mg/dL [facility] Ethanol percent <0.010 % [facility] lt Lactic Acidon 06-28-2021 Lactate [Moles/Vol] 1.6 mmol/L 0.5 - 2. 2 mmol/L [facility] Lipaseon 06-28-2021 Lipase [Catalytic activity/Vol] 30 U/L 13 - 60 U/L [facility] Magnesiumon 06-28-2021 Magnesium [Mass/Vol] 1.9 mg/dL 1.6 - 2 .6 mg/dL [facility] Microscopic Urinalysison - [facility] Epithelial Cells UA 0 TO 2 /HPF [facility] RBC, UA 5 TO 10 [facility] No Panel Informationon 06-28 Interpretation and review of laboratory results Abnormal [facility] Salicylateon 06-28-2021 Salicylate Lvl <1 Low 3 - 10 mg/dL [facility] Urinalysison 06-28-2021 Bilirubin Urine Negative NEGATIVE [facility] lt Color, UA Yellow Yellow [facility] Glucose, Ur 1000 mg/dL Abnormal NEGATIVE [facility] Interpretation and review of laboratory results Abnormal [facility] Ketones Ql (U) SMALL Abnormal NEGATIVE [facility] Leukocyte esterase Test strip Ql (U) Negative NEGATIVE [facility] Nitrite, Urine Negative NEGATIVE [facility] pH, UA 7.0 [facility] Protein, UA 2+ Abnormal NEGATIVE [facility] Specific Hustle, UA 1.010 [facility] Turbidity UA Hazy Abnormal Clear [facility] Urinalysis Comments [facility] Urine Hgb 1+ Abnormal NEGATIVE [facility] Urobilinogen, Urine Normal Normal [facility] Urine Drug Screenon 06-29-19 Amphetamine Screen, Ur Negative NEGATIVE [facility] Comment on above: (Positive cutoff 500 ng/mL) Barbiturate Screen, Ur Negative NEGATIVE [facility] Comment on above: (Positive cutoff 200 ng/mL) Benzodiazepine Screen, Urine Negative NEGATIVE [facility] Comment on above: (Positive cutoff 150 ng/mL) Cannabinoid Scrn, Ur Negative NEGATIVE [facility] Comment on above: (Positive cutoff 50 ng/mL) Cocaine Metabolite, Urine Negative NEGATIVE [facility] Comment on above: (Positive cutoff 150 ng/mL) Interpretation and review of laboratory results Abnormal [facility] Methadone Screen, Urine Negative NEGATIVE [facility] Comment on above: (Positive cutoff 200 ng/mL) Methamphetamine, Urine Negative NEGATIVE [facility] Comment on above: (Positive cutoff 500 ng/mL) Opiates, Urine Positive Abnormal NEGATIVE [facility] Comment on above: (Positive cutoff 100 ng/mL) Oxycodone Screen, Ur Negative NEGATIVE [facility] Comment on above: (Positive cutoff 100 ng/mL) Phencyclidine, Urine Negative NEGATIVE [facility] Comment on above: (Positive cutoff 25 ng/mL) Propoxyphene, Urine Negative NEGATIVE [facility] Comment on above: (Positive cutoff 300 ng/mL) Tricyclic Antidepressants, Urine Negative NEGATIVE [facility] Comment on above: (Positive cutoff 300 ng/mL) Drug screen results are to be used for medical purposes only. All positive results are unconfirmed. Testing for employment or legal uses should be sent to a reference laboratory for confirmation. [facility] XR CHEST PORTABLEon 06-29-19 22 No acute abnormality. [facility] CLINICAL HISTORY: altered mental status COMPARISON: none FINDINGS: Portable AP view of the chest obtained. Cardiomediastinal silhouette is normal. Lungs are clear, no evidence of infiltrate, suspicious nodule, or mass. No evidence of significant pleural fluid on this portable projection. No acute bony abnormality. [facility] Leonardo Lopes M D - 06/28/2021 CLINICAL HISTORY: altered mental status COMPARISON: none FINDINGS: Portable AP view of the chest obtained. Cardiomediastinal silhouette is normal. Lungs are clear, no evidence of infiltrate, suspicious nodule, or mass. No evidence of significant pleural fluid on this portable projection. No acute bony abnormality. IMPRESSION: No acute abnormality. [employer] Work Phone: Radiology Study observation (narrative) [place] Phone: XR CHEST PORTABLEOrdered By: Leonardo Lopes on 06-28-2021 [place] Phone: COVID-19, MOLECULARon 2021 SARS-CoV-2 (COVID-19) RNA CAL+probe Ql (Unsp spec) Not detected Normal Not Detected [facility] Comment on above: Order Comment: This test [...] at the following links: For Healthcare Providers: https://www.fda.gov/media/890765/download For Patients: https://www.fda.gov/media/726547/download Performed By: #### L [id number] #### [facility] [address] [place], [place] [address] Adilson Niño M.D. [id number] MR FOOT LEFT WITHOUT CONTRAS Ton 05-21-2021 [...] on FriMay 22, 2021 7:54:35 AM EDT [facility] Comment on above: Order Comment: Injur y/Trauma or Illness?:Illness/Other How long have you had these symptoms (acute/chronic)?:Acute Reason for exam?:ulcer in ball of foot at 1st -2nd metatarsal heads, (2nd toe has been removed) x1 month Type of Exam?:Initial Additional signs and symptoms?:patient is a diabetic XR FOOT LEFT 3+ VIEWS (STAND KEISAH)on 05-20-2021 XR FOOT LEFT 3+ VIEWS (STANDARD) [...] ID: [id number] Dictated by: LUIS TEMPLETON on [place] May 20, 2021 4:40:24 PM EDT Transcribed by: LUIS TEMPLETON on [place] May 20, 2021 4:40:24 PM EDT Finalized by: LUIS TEMPLETON on [place] May 20, 2021 4:40:24 PM EDT [facility] Comment on above: Order Comment: Injur y/Trauma [...] patent on the right. SCA patent bilaterally. POULTRY HANGER patent bilaterally. Basilar artery and basilar tip [...] Sat May 19, 2021 3:53:28 AM EDT [facility] Comment on above: Order Comment: Injur y/Trauma [...] May 19, 2021 10:41:14 PM EDT Normal [facility] Comment on above: Order Comment: Injur y/Trauma [...] ID: [id number] Dictated by: Pili FONTAINE on [place] May 20, 2021 8:14:06 AM EDT Transcribed by: JANY FORBES on [place] May 20, 2021 8:50:25 AM EDT Finalized by: Pili FONTAINE on [place] May 20, 2021 2:03:56 PM EDT Normal [facility] Comment on above: Order Comment: Injur y/Trauma [...] ID: [id number] Dictated by: JOS FREDERICK on [facility] May 19, 2021 6:07:29 PM EDT Transcribed by: JOS FREDERICK on [facility] May 19, 2021 6:07:29 PM EDT Finalized by: JOS FREDERICK on [facility] May 19, 2021 6:07:29 PM EDT Normal [facility] Comment on above: Order Comment: Injur y/Trauma or Illness?:Illness/Other How long have you had these symptoms (acute/chronic)?:Acute Reason for exam?:elevated liver enzymes History of cancer?:u Surgeries, chemotherapy, or radiation?:u Type of Exam?:Initial Additional signs and symptoms?:n COVID-19, MOLECULARon 2021 SARS-CoV-2 (COVID-19) RNA CAL+probe Ql (Unsp spec) Not detected Normal Not Detected [facility] Comment on above: Result Comment: This test was performed under the FDA's Emergency Use Authorization (EUA). Testing was performed using the Xpert Xpress SARS-CoV-2 RT-PCR [employer] assay on the [employer] D[employer] platform. This test has not been approved for use in asymptomatic patients and its performance in this patient population has not been evaluated. Negative results do not rule out the presence of SARS-CoV-2/COVID-19. Fact sheets for this EUA can be found at the following links: For Healthcare Providers: https://www.fda.gov/media/279916/download For Patients: https://www.fda.gov/media/167130/download Performed By: #### L [id number] #### SH [address] [address] Adilson Niño M.D. [id number] CT CERVICAL SPINE WITHOUT CO NTRASTon 05-18-2021 [...] to severe right facet arthropathy at C5-C6. [id number] stenosis of the right C5-C6 neural foramen [...] the cervical spine without central spinal stenosis. [id number] stenosis the right C5-C6 neural foramen secondary to mild uncovertebral hypertrophy and moderate to severe right facet hypertrophy. Workstation ID: [id number] Dictated by: ALBERT MARIA on FriMay 18, 2021 5:23:47 PM EDT Transcribed by: ALBERT MARIA on FriMay 18, 2021 5:23:47 PM EDT Finalized by: ALBERT MARIA on FriMay 18, 2021 5:23:47 PM EDT [facility] Comment on above: Order Comment: Injur y/Trauma [...] superior forming alt MD: -7.89 (-5.69) Normal [facility] BUN CREAon 05-11-2021 Creatinine [Mass/Vol] 1.38 mg/dL High 0.50 - 1.20 mg/dL [facility] GFR/1.73 sq M.predicted CKD-EPI (S/P/Bld) [Vol rate/Area] 44 Low >=60 mL/min/1.73 m2 [facility] Comment on above: Reported eGFR is bas ed on the CKD-EPI 2020 equation using creatinine, age, and sex. Interpretation and review of laboratory results Abnormal [facility] Urea nitrogen [Mass/Vol] 27 mg/dL High 7 - 25 mg/dL [facility] Urea nitrogen/Creatinine [Mass ratio] 20 mg/mg [facility] Creatinine [Mass/Vol] 1.38 mg/dL High 0.50-1.20 [facility] Comment on above: Order Comment: Prior to first [facility] and every 2 weeks if baseline CR is within normal limits. Performed By: #### B CR #### [facility] (DEFAULT) [address] [place] [address] GFR/1.73 sq M.predicted among non-blacks MDRD (S/P/Bld) [Vol rate/Area] 44 mL/min/{1.73_m2} Low >=60 [facility] Comment on above: Order Comment: Prior to first [facility] and every 2 weeks if baseline CR is within normal limits. Result Comment: Repo rted eGFR is based on the CKD-EPI 2020 equation using creatinine, age, and sex. Performed By: #### B CR #### [facility] (DEFAULT) [address] [place] [address] Urea nitrogen [Mass/Vol] 27 mg/dL High 09-10 [facility] Comment on above: Order Comment: Prior to first [facility] and every 2 weeks if baseline CR is within normal limits. Performed By: #### B CR #### [facility] (DEFAULT) [address] [place] [address] Urea nitrogen/Creatinine [Mass ratio] 20 mg/mg Normal [facility] Comment on above: Order Comment: Prior to first [facility] and every 2 weeks if baseline CR is within normal limits. Performed By: #### B CR #### [facility] (DEFAULT) [address] [place] [address] CBC AND ELECTRONIC DIFFon Basophils (Bld) [#/Vol] 10*3/uL 0.00 - 0.15 K/uL [facility] Basophils/100 WBC (Bld) 0.2 % [facility] DIFF STATUS Electronic Differential [facility] Eosinophils (Bld) [#/Vol] 0.16 10*3/uL 0.00 - 0.42 K/uL [facility] Eosinophils/100 WBC (Bld) 1.9 % [facility] Erythrocyte distribution width (RBC) [Ratio] 15.4 % High 10.8 - 14.9 % [facility] Hematocrit (Bld) [Volume fraction] 36.1 % 34.9 - 44.3 % [facility] Hemoglobin (Bld) [Mass/Vol] 11.7 g/dL 11.4 - 15.2 g/dL [facility] Immature granulocytes (Bld) [#/Vol] 10*3/uL <=0.09 K/uL [facility] Immature granulocytes/100 WBC (Bld) 0.2 % [facility] Interpretation and review of laboratory results Abnormal [facility] Lymphocytes (Bld) [#/Vol] 2.68 10*3/uL 1.16 - 3.51 K/uL [facility] Lymphocytes/100 WBC (Bld) 32.0 % [facility] MCH (RBC) [Entitic mass] 27.6 pg 25.9 - 33.9 pg [facility] MCHC (RBC) [Mass/Vol] 32.4 g/dL 31.4 - 35.9 g/dL [facility] MCV (RBC) [Entitic vol] 85.1 fL 79.6 - 97.7 fL [facility] Monocytes (Bld) [#/Vol] 0.37 10*3/uL 0.22 - 0.87 K/uL [facility] Monocytes/100 WBC (Bld) 4.4 % [facility] Neutrophils (Bld) [#/Vol] 5.13 10*3/uL 1.64 - 7.28 K/uL [facility] Nucleated RBC/100 WBC (Bld) [Ratio] 0.0 % <=0.2 /100 WBC [facility] Platelet mean volume (Bld) [Entitic vol] 9.8 fL 8.5 - 12.2 fL [facility] Platelets (Bld) [#/Vol] 338 10*3/uL 150 - 393 K/uL [facility] RBC (Bld) [#/Vol] 4.24 10*6/uL [facility] Segmented neutrophils/100 WBC (Bld) 61.3 % [facility] WBC (Bld) [#/Vol] 8.38 10*3/uL 3.99 - 11.19 K/uL [facility] Basophils (Bld) [#/Vol] 10*3/uL Normal 0.00-0.15 [facility] Comment on above: Order Comment: Prior to first [facility]fusion and then every 2 weeks.until results within normal limits. Collect weekly if baseline is abnormal. Performed By: #### L [id number] #### [facility] (DEFAULT) [address] [address] Basophils/100 WBC (Bld) 0.2 % Normal [facility] Comment on above: Order Comment: Prior to first [facility] Infusion and then every 2 weeks.until results within normal limits. Collect weekly if baseline is abnormal. Performed By: #### L [id number] #### [facility] (DEFAULT) [address] [address] DIFF STATUS Electronic Differential Normal [facility] Comment on above: Order Comment: Prior to first [facility] Infusion and then every 2 weeks.until results within normal limits. Collect weekly if baseline is abnormal. Performed By: #### L [id number] #### [facility] (DEFAULT) [address] [address] Eosinophils (Bld) [#/Vol] 0.16 10*3/uL Normal 0.00-0.42 [facility] Comment on above: Order Comment: Prior to first [facility] Infusion and then every 2 weeks.until results within normal limits. Collect weekly if baseline is abnormal. Performed By: #### L [id number] #### [facility] (DEFAULT) [address] [address] Eosinophils/100 WBC (Bld) 1.9 % Normal [facility] Comment on above: Order Comment: Prior to first [facility] Infusion and then every 2 weeks.until results within normal limits. Collect weekly if baseline is abnormal. Performed By: #### L [id number] #### [facility] (DEFAULT) [address] [address] Hematocrit (Bld) [Volume fraction] 36.1 % Normal 34.9-44.3 [facility] Comment on above: Order Comment: Prior to first [facility] Infusion and then every 2 weeks.until results within normal limits. Collect weekly if baseline is abnormal. Performed By: #### L [id number] #### [facility] (DEFAULT) [address] [address] Hemoglobin (Bld) [Mass/Vol] 11.7 g/dL Normal 11.4-15.2 [facility] Comment on above: Order Comment: Prior to first [facility] Infusion and then every 2 weeks.until results within normal limits. Collect weekly if baseline is abnormal. Performed By: #### L [id number] #### [facility] (DEFAULT) [address] [address] Immature Grans % 0.2 % Normal [facility] Comment on above: Order Comment: Prior to first [facility] Infusion and then every 2 weeks.until results within normal limits. Collect weekly if baseline is abnormal. Performed By: #### L [id number] #### [facility] (DEFAULT) [address] [address] Immature Grans Absolute <0.04 Normal <=0.09 [facility] Comment on above: Order Comment: Prior to first [facility] Infusion and then every 2 weeks.until results within normal limits. Collect weekly if baseline is abnormal. Performed By: #### L [id number] #### [facility] (DEFAULT) [address] [address] Lymphocytes (Bld) [#/Vol] 2.68 10*3/uL Normal 1.16-3.51 [facility] Comment on above: Order Comment: Prior to first [facility] Infusion and then every 2 weeks.until results within normal limits. Collect weekly if baseline is abnormal. Performed By: #### L [id number] #### [facility] (DEFAULT) [address] [address] Lymphocytes/100 WBC (Bld) 32.0 % Normal [facility] Comment on above: Order Comment: Prior to first [facility] Infusion and then every 2 weeks.until results within normal limits. Collect weekly if baseline is abnormal. Performed By: #### L [id number] #### [facility] (DEFAULT) [address] [address] MCV (RBC) [Entitic vol] 85.1 fL Normal 79.6-97.7 [facility] Comment on above: Order Comment: Prior to first [facility] Infusion and then every 2 weeks.until results within normal limits. Collect weekly if baseline is abnormal. Performed By: #### L [id number] #### [facility] (DEFAULT) [address] [address] Mean Cell Hgb 27.6 pg Normal 25.9-33.9 [facility] Comment on above: Order Comment: Prior to first [facility] Infusion and then every 2 weeks.until results within normal limits. Collect weekly if baseline is abnormal. Performed By: #### L [id number] #### [facility] (DEFAULT) [address] [address] Mean Cell Hgb Conc 32.4 g/dL Normal 31.4-35.9 [facility] Comment on above: Order Comment: Prior to first [facility] Infusion and then every 2 weeks.until results within normal limits. Collect weekly if baseline is abnormal. Performed By: #### L [id number] #### [facility] (DEFAULT) [address] [place] [address] Monocytes (Bld) [#/Vol] 0.37 10*3/uL Normal 0.22-0.87 [facility] Comment on above: Order Comment: Prior to first [facility] Infusion and then every 2 weeks.until results within normal limits. Collect weekly if baseline is abnormal. Performed By: #### L [id number] #### [facility] (DEFAULT) [address] [address] Monocytes/100 WBC (Bld) 4.4 % Normal [facility] Comment on above: Order Comment: Prior to first [facility] Infusion and then every 2 weeks.until results within normal limits. Collect weekly if baseline is abnormal. Performed By: #### L [id number] #### [facility] (DEFAULT) [address] [place] [address] Nucleated RBC 0.0 /100 WBC Normal <=0.2 [facility] Comment on above: Order Comment: Prior to first [facility] Infusion and then every 2 weeks.until results within normal limits. Collect weekly if baseline is abnormal. Performed By: #### L [id number] #### [facility] (DEFAULT) [address] [address] Platelet mean volume (Bld) [Entitic vol] 9.8 fL Normal 8.5-12.2 [facility] Comment on above: Order Comment: Prior to first [facility] Infusion and then every 2 weeks.until results within normal limits. Collect weekly if baseline is abnormal. Performed By: #### L [id number] #### [facility] (DEFAULT) [address] [address] Platelets (Bld) [#/Vol] 338 10*3/uL Normal 150-393 [facility] Comment on above: Order Comment: Prior to first [facility] Infusion and then every 2 weeks.until results within normal limits. Collect weekly if baseline is abnormal. Performed By: #### L [id number] #### [facility] (DEFAULT) [address] [address] RBC (Bld) [#/Vol] 4.24 10*6/uL Normal 3.91-5.04 [facility] Comment on above: Order Comment: Prior to first [facility] Infusion and then every 2 weeks.until results within normal limits. Collect weekly if baseline is abnormal. Performed By: #### L [id number] #### [facility] (DEFAULT) [address] [address] RBC Distribution 15.4 % High 10.8-14.9 [facility] Comment on above: Order Comment: Prior to first [facility] Infusion and then every 2 weeks.until results within normal limits. Collect weekly if baseline is abnormal. Performed By: #### L [id number] #### [facility] (DEFAULT) [address] [address] Segs + Bands Auto 61.3 % Normal [facility] Comment on above: Order Comment: Prior to first [facility] Infusion and then every 2 weeks.until results within normal limits. Collect weekly if baseline is abnormal. Performed By: #### L [id number] #### [facility] (DEFAULT) [address] [address] Segs + Bands,Absolute Auto 5.13 K/uL Normal 1.64-7.28 [facility] Comment on above: Order Comment: Prior to first [facility] Infusion and then every 2 weeks.until results within normal limits. Collect weekly if baseline is abnormal. Performed By: #### L [id number] #### [facility] (DEFAULT) [address] [address] WBC (Bld) [#/Vol] 8.38 10*3/uL Normal 3.99-11.19 [facility] Comment on above: Order Comment: Prior to first [facility] Infusion and then every 2 weeks.until results within normal limits. Collect weekly if baseline is abnormal. Performed By: #### L [id number] #### [facility] (DEFAULT) [address] [place] [address] BUN CREAon 04-25-2021 Creatinine [Mass/Vol] 1.29 mg/dL High 0.50-1.20 [facility] Comment on above: Order Comment: Prior to first [facility] Infusion and every 2 weeks if baseline CR is within normal limits. Performed By: #### B CR #### [facility] (DEFAULT) [address] [place] [address] GFR/1.73 sq M.predicted among non-blacks MDRD (S/P/Bld) [Vol rate/Area] 48 mL/min/{1.73_m2} Low >=60 [facility] Comment on above: Order Comment: Prior to first [facility] Infusion and every 2 weeks if baseline CR is within normal limits. Result Comment: Repo rted eGFR is based on the CKD-EPI 2020 equation using creatinine, age, and sex. Performed By: #### B CR #### [facility] (DEFAULT) [address] [address] Urea nitrogen [Mass/Vol] 27 mg/dL High 7-25 [facility] Comment on above: Order Comment: Prior to first [facility] Infusion and every 2 weeks if baseline CR is within normal limits. Performed By: #### B CR #### [facility] (DEFAULT) [address] [address] Urea nitrogen/Creatinine [Mass ratio] 21 mg/mg Normal [facility] Comment on above: Order Comment: Prior to first [facility] Infusion and every 2 weeks if baseline CR is within normal limits. Performed By: #### B CR #### [facility] (DEFAULT) [address] [address] CBC AND ELECTRONIC DIFFon Basophils (Bld) [#/Vol] 0.05 10*3/uL Normal 0.00-0.15 [facility] Comment on above: Order Comment: Prior to first [facility] Infusion and then every 2 weeks.until results within normal limits. Collect weekly if baseline is abnormal. Performed By: #### L [id number] #### [facility] (DEFAULT) [address] [address] Basophils/100 WBC (Bld) 0.6 % Normal [facility] Comment on above: Order Comment: Prior to first [facility] Infusion and then every 2 weeks.until results within normal limits. Collect weekly if baseline is abnormal. Performed By: #### L [id number] #### [facility] (DEFAULT) [address] [address] DIFF STATUS Electronic Differential Normal [facility] Comment on above: Order Comment: Prior to first [facility] Infusion and then every 2 weeks.until results within normal limits. Collect weekly if baseline is abnormal. Performed By: #### L [id number] #### [facility] (DEFAULT) [address] [address] [address] Eosinophils (Bld) [#/Vol] 0.23 10*3/uL Normal 0.00-0.42 [facility] Comment on above: Order Comment: Prior to first [facility] [facility] and then every 2 weeks.until results within normal limits. Collect weekly if baseline is abnormal. Performed By: #### L [id number] #### [facility] (DEFAULT) [address] [address] Eosinophils/100 WBC (Bld) 2.6 % Normal [facility] Comment on above: Order Comment: Prior to first [facility] and then every 2 weeks.until results within normal limits. Collect weekly if baseline is abnormal. Performed By: #### L [id number] #### [facility] (DEFAULT) [address] [address] Hematocrit (Bld) [Volume fraction] 34.0 % Low 34.9-44.3 [facility] Comment on above: Order Comment: Prior to first [facility] and then every 2 weeks.until results within normal limits. Collect weekly if baseline is abnormal. Performed By: #### L [id number] #### [facility] (DEFAULT) [address] [address] Hemoglobin (Bld) [Mass/Vol] 10.7 g/dL Low 11.4-15.2 [facility] Comment on above: Order Comment: Prior to first [facility] and then every 2 weeks.until results within normal limits. Collect weekly if baseline is abnormal. Performed By: #### L [id number] #### [facility] (DEFAULT) [address] [address] Immature Grans % 0.2 % Normal [facility] Comment on above: Order Comment: Prior to first [facility] and then every 2 weeks.until results within normal limits. Collect weekly if baseline is abnormal. Performed By: #### L [id number] #### [facility] (DEFAULT) [address] [address] Immature Grans Absolute <0.04 Normal <=0.09 [facility] Comment on above: Order Comment: Prior to first [facility] and then every 2 weeks.until results within normal limits. Collect weekly if baseline is abnormal. Performed By: #### L [id number] #### [facility] (DEFAULT) [address] [address] Lymphocytes (Bld) [#/Vol] 2.20 10*3/uL Normal 1.16-3.51 [facility] Comment on above: Order Comment: Prior to first [facility] and then every 2 weeks.until results within normal limits. Collect weekly if baseline is abnormal. Performed By: #### L [id number] #### [facility] (DEFAULT) [address] [address] Lymphocytes/100 WBC (Bld) 24.5 % Normal [facility] Comment on above: Order Comment: Prior to first [facility] [facility] and then every 2 weeks.until results within normal limits. Collect weekly if baseline is abnormal. Performed By: #### L [id number] #### [facility] (DEFAULT) [address] [address] MCV (RBC) [Entitic vol] 85.4 fL Normal 79.6-97.7 [facility] Comment on above: Order Comment: Prior to first [facility] and then every 2 weeks.until results within normal limits. Collect weekly if baseline is abnormal. Performed By: #### L [id number] #### [facility] (DEFAULT) [address] [address] Mean Cell Hgb 26.9 pg Normal 25.9-33.9 [facility] Comment on above: Order Comment: Prior to first [facility] and then every 2 weeks.until results within normal limits. Collect weekly if baseline is abnormal. Performed By: #### L [id number] #### [facility] (DEFAULT[facility] [address] [address] Mean Cell Hgb Conc 31.5 g/dL Normal 31.4-35.9 [facility] Comment on above: Order Comment: Prior to first [facility] [facility] and then every 2 weeks.until results within normal limits. Collect weekly if baseline is abnormal. Performed By: #### L [id number] #### [facility] (DEFAULT) [address] [address] Monocytes (Bld) [#/Vol] 0.41 10*3/uL Normal 0.22-0.87 [facility] Comment on above: Order Comment: Prior to first [facility] and then every 2 weeks.until results within normal limits. Collect weekly if baseline is abnormal. Performed By: #### L [id number] #### [facility] (DEFAULT) [address] [address] Monocytes/100 WBC (Bld) 4.6 % Normal [facility] Comment on above: Order Comment: Prior to first [facility] [facility] and then every 2 weeks.until results within normal limits. Collect weekly if baseline is abnormal. Performed By: #### L [id number] #### [facility] (DEFAULT) [address] [address] Nucleated RBC 0.0 /100 WBC Normal <=0.2 [facility] Comment on above: Order Comment: Prior to first [facility] [facility] and then every 2 weeks.until results within normal limits. Collect weekly if baseline is abnormal. Performed By: #### L [id number] #### [facility] (DEFAULT) [address] [address] Platelet mean volume (Bld) [Entitic vol] 9.8 fL Normal 8.5-12.2 [facility] Comment on above: Order Comment: Prior to first [facility] [facility] and then every 2 weeks.until results within normal limits. Collect weekly if baseline is abnormal. Performed By: #### L [id number] #### [facility] (DEFAULT) [address] [address] Platelets (Bld) [#/Vol] 389 10*3/uL Normal 150-393 [facility] Comment on above: Order Comment: Prior to first [facility] [facility] and then every 2 weeks.until results within normal limits. Collect weekly if baseline is abnormal. Performed By: #### L [id number] #### [facility] (DEFAULT) [address] [address] RBC (Bld) [#/Vol] 3.98 10*6/uL Normal 3.91-5.04 [facility] Comment on above: Order Comment: Prior to first [employer] [facility] and then every 2 weeks.until results within normal limits. Collect weekly if baseline is abnormal. Performed By: #### L [id number] #### [facility] (DEFAULT) [address] [address] RBC Distribution 14.8 % Normal 10.8-14.9 [facility] Comment on above: Order Comment: Prior to first [employer] [facility] and then every 2 weeks.until results within normal limits. Collect weekly if baseline is abnormal. Performed By: #### L [id number] #### [facility] (DEFAULT) [address] [address] Segs + Bands Auto 67.5 % Normal [facility] Comment on above: Order Comment: Prior to first [employer] [facility] and then every 2 weeks.until results within normal limits. Collect weekly if baseline is abnormal. Performed By: #### L [id number] #### [facility] (DEFAULT) [address] [address] Segs + Bands,Absolute Auto 6.07 K/uL Normal 1.64-7.28 [facility] Comment on above: Order Comment: Prior to first [employer] [facility] and then every 2 weeks.until results within normal limits. Collect weekly if baseline is abnormal. Performed By: #### L [id number] #### [facility] (DEFAULT) [address] [address] WBC (Bld) [#/Vol] 8.98 10*3/uL Normal 3.99-11.19 [facility] Comment on above: Order Comment: Prior to first [facility] [facility] and then every 2 weeks.until results within normal limits. Collect weekly if baseline is abnormal. Performed By: #### L [id number] #### [facility] (DEFAULT) [address] [address] CBC AND ELECTRONIC DIFFon Basophils (Bld) [#/Vol] 10*3/uL Normal 0.00-0.15 [facility] Comment on above: Order Comment: Prior to first [facility] [facility] and then every 2 weeks.until results within normal limits. Collect weekly if baseline is abnormal. Performed By: #### L [id number] #### [facility] (DEFAULT) [address] [address] Basophils/100 WBC (Bld) 0.3 % Normal [facility] Comment on above: Order Comment: Prior to first [employer] [facility] and then every 2 weeks.until results within normal limits. Collect weekly if baseline is abnormal. Performed By: #### L [id number] #### [facility] (DEFAULT) [address] [address] DIFF STATUS Electronic Differential Normal [facility] Comment on above: Order Comment: Prior to first [employer] [facility] and then every 2 weeks.until results within normal limits. Collect weekly if baseline is abnormal. Performed By: #### L [id number] #### [facility] (DEFAULT) [address] [address] Eosinophils (Bld) [#/Vol] 0.24 10*3/uL Normal 0.00-0.42 [facility] Comment on above: Order Comment: Prior to first [facility] [facility] and then every 2 weeks.until results within normal limits. Collect weekly if baseline is abnormal. Performed By: #### L [id number] #### [facility] (DEFAULT) [address] [address] Eosinophils/100 WBC (Bld) 2.4 % Normal [facility] Comment on above: Order Comment: Prior to first [employer] [facility] and then every 2 weeks.until results within normal limits. Collect weekly if baseline is abnormal. Performed By: #### L [id number] #### [facility] (DEFAULT) [address] [address] Hematocrit (Bld) [Volume fraction] 33.4 % Low 34.9-44.3 [facility] Comment on above: Order Comment: Prior to first [employer] [facility] and then every 2 weeks.until results within normal limits. Collect weekly if baseline is abnormal. Performed By: #### L [id number] #### [facility] (DEFAULT) [address] [address] Hemoglobin (Bld) [Mass/Vol] 10.3 g/dL Low 11.4-15.2 [facility] Comment on above: Order Comment: Prior to first [employer] [facility] and then every 2 weeks.until results within normal limits. Collect weekly if baseline is abnormal. Performed By: #### L [id number] #### [facility] (DEFAULT) [address] [address] Immature Grans % 0.2 % Normal [facility] Comment on above: Order Comment: Prior to first [employer] [facility] and then every 2 weeks.until results within normal limits. Collect weekly if baseline is abnormal. Performed By: #### L [id number] #### [facility] (DEFAULT) [address] [address] Immature Grans Absolute <0.04 Normal <=0.09 [facility] Comment on above: Order Comment: Prior to first [employer] [facility] and then every 2 weeks.until results within normal limits. Collect weekly if baseline is abnormal. Performed By: #### L [id number] #### [facility] (DEFAULT) [address] [address] Lymphocytes (Bld) [#/Vol] 2.87 10*3/uL Normal 1.16-3.51 [facility] Comment on above: Order Comment: Prior to first [facility] and then every 2 weeks.until results within normal limits. Collect weekly if baseline is abnormal. Performed By: #### L [id number] #### [facility] (DEFAULT) [address] [address] Lymphocytes/100 WBC (Bld) 29.1 % Normal [facility] Comment on above: Order Comment: Prior to first [employer] [facility] and then every 2 weeks.until results within normal limits. Collect weekly if baseline is abnormal. Performed By: #### L [id number] #### [facility] (DEFAULT) [address] [address] MCV (RBC) [Entitic vol] 85.2 fL Normal 79.6-97.7 [facility] Comment on above: Order Comment: Prior to first [employer] [facility] and then every 2 weeks.until results within normal limits. Collect weekly if baseline is abnormal. Performed By: #### L [id number] #### [facility] (DEFAULT) [address] [address] Mean Cell Hgb 26.3 pg Normal 25.9-33.9 [facility] Comment on above: Order Comment: Prior to first [facility] [facility] and then every 2 weeks.until results within normal limits. Collect weekly if baseline is abnormal. Performed By: #### L [id number] #### [facility] (DEFAULT) [address] [address] Mean Cell Hgb Conc 30.8 g/dL Low 31.4-35.9 [facility] Comment on above: Order Comment: Prior to first [employer] [facility] and then every 2 weeks.until results within normal limits. Collect weekly if baseline is abnormal. Performed By: #### L [id number] #### [facility] (DEFAULT) [address] [address] Monocytes (Bld) [#/Vol] 0.37 10*3/uL Normal 0.22-0.87 [facility] Comment on above: Order Comment: Prior to first [employer] [facility] and then every 2 weeks.until results within normal limits. Collect weekly if baseline is abnormal. Performed By: #### L [id number] #### [facility] (DEFAULT) [address] [address] Monocytes/100 WBC (Bld) 3.7 % Normal [facility] Comment on above: Order Comment: Prior to first [employer] [facility] and then every 2 weeks.until results within normal limits. Collect weekly if baseline is abnormal. Performed By: #### L [id number] #### [facility] (DEFAULT) [address] [address] Nucleated RBC 0.0 /100 WBC Normal <=0.2 [facility] Comment on above: Order Comment: Prior to first [employer] [facility] and then every 2 weeks.until results within normal limits. Collect weekly if baseline is abnormal. Performed By: #### L [id number] #### [facility] (DEFAULT) [address] [address] Platelet mean volume (Bld) [Entitic vol] 9.9 fL Normal 8.5-12.2 [facility] Comment on above: Order Comment: Prior to first [employer] [facility] and then every 2 weeks.until results within normal limits. Collect weekly if baseline is abnormal. Performed By: #### L [id number] #### [facility] (DEFAULT) [address] [address] Platelets (Bld) [#/Vol] 346 10*3/uL Normal 150-393 [facility] Comment on above: Order Comment: Prior to first [employer] [facility] and then every 2 weeks.until results within normal limits. Collect weekly if baseline is abnormal. Performed By: #### L [id number] #### [facility] (DEFAULT) [address] [address] RBC (Bld) [#/Vol] 3.92 10*6/uL Normal 3.91-5.04 [facility] Comment on above: Order Comment: Prior to first [employer] [facility] and then every 2 weeks.until results within normal limits. Collect weekly if baseline is abnormal. Performed By: #### L [id number] #### [facility] (DEFAULT) [address] [address] RBC Distribution 15.1 % High 10.8-14.9 [facility] Comment on above: Order Comment: Prior to first [employer] [facility] and then every 2 weeks.until results within normal limits. Collect weekly if baseline is abnormal. Performed By: #### L [id number] #### [facility] (DEFAULT) [address] [address] Segs + Bands Auto 64.3 % Normal [facility] Comment on above: Order Comment: Prior to first [employer] [facility] and then every 2 weeks.until results within normal limits. Collect weekly if baseline is abnormal. Performed By: #### L [id number] #### [facility] (DEFAULT) [address] [address] Segs + Bands,Absolute Auto 6.34 K/uL Normal 1.64-7.28 [facility] Comment on above: Order Comment: Prior to first [employer] [facility] and then every 2 weeks.until results within normal limits. Collect weekly if baseline is abnormal. Performed By: #### L [id number] #### [facility] (DEFAULT) [address] [address] WBC (Bld) [#/Vol] 9.87 10*3/uL Normal 3.99-11.19 [facility] Comment on above: Order Comment: Prior to first [employer] [facility] and then every 2 weeks.until results within normal limits. Collect weekly if baseline is abnormal. Performed By: #### L [id number] #### [facility] (DEFAULT) [address] [address] Comprehensive metabolic 2000 panelon 04-06-2021 High Sensitivity Troponin I 9 ng/L Normal <14 [facility] Comment on above: Performed By: #### 2 4321-2 #### [facility] [address] [place] [address] Glucose Auto test strip (Bld ) [Mass/Vol]on 04-06-2021 Glucose [Mass/Vol] 219 mg/dL High 70-99 [facility] Comment on above: Performed By: #### 2 4321-2 #### [facility] [address] [place] [address] Glucose [Mass/Vol] 245 mg/dL High 70-99 [facility] Comment on above: Performed By: #### 2 4321-2 #### [facility] [address] [place] [address] Glucose [Mass/Vol] 176 mg/dL High 70-99 [facility] Comment on above: Performed By: #### 2 4321-2 #### [facility] [address] [place] [address] Glucose [Mass/Vol] 217 mg/dL High 70-99 [facility] Comment on above: Performed By: #### 2 340-8 #### [facility] [address] [place] [address] HbA1c HPLC (Bld) [Mass fract ion]on 04-06-2021 HbA1c (Bld) [Mass fraction] 11.8 % High <=5.6 [facility] Comment on above: Result Comment: HbA1 c values of 5.7-6.4 percent indicate an increased risk for developing diabetes mellitus. HbA1c values greater than or equal to 6.5 percent are diagnostic of diabetes mellitus. For diagnosis of diabetes in individuals without unequivocal hyperglycemia, results should be confirmed by repeat testing. Performed By: #### 2 4321-2 #### [facility] [address] [place] [address] Mean Bld Glu Estim. 292 mg/dL Normal [facility] Comment on above: Performed By: #### 2 4321-2 #### [facility] [address] [place] [address] Hemogram and platelets WO di fferential panel (Bld)on 04-06-2021 Basophils (Bld) [#/Vol] 0.00 10*3/uL Normal 0.00-0.20 [facility] Comment on above: Performed By: #### 2 4317-0 #### [facility] [address] [place] [address] Basophils/100 WBC (Bld) 0.4 % Normal 0.0-2.0 [facility] Comment on above: Performed By: #### 2 4317-0 #### [facility] [address] [place] [address] Eosinophils (Bld) [#/Vol] 0.30 10*3/uL Normal 0.00-0.70 [facility] Comment on above: Performed By: #### 2 4317-0 #### [facility] [address] [place] [address] Eosinophils/100 WBC (Bld) 3.5 % Normal 0.0-7.0 [facility] Comment on above: Performed By: #### 2 4317-0 #### [facility] [address] [place] [address] Erythrocyte distribution width (RBC) [Ratio] 15.3 % High 11.0-14.8 [facility] Comment on above: Performed By: #### 2 4317-0 #### [facility] [address] [place] [address] Hematocrit (Bld) [Volume fraction] 32.4 % Low 35.0-45.0 [facility] Comment on above: Performed By: #### 2 4317-0 #### [facility] [address] [place] [address] Hemoglobin (Bld) [Mass/Vol] 10.8 g/dL Low 12.0-16.0 [facility] Comment on above: Performed By: #### 2 4317-0 #### [facility] [address] [place] [address] Lymphocytes (Bld) [#/Vol] 3.10 10*3/uL Normal 1.00-4.80 [facility] Comment on above: Performed By: #### 2 4317-0 #### [facility] [address] [place] [address] Lymphocytes/100 WBC (Bld) 39.3 % Normal 22.0-44.0 [facility] Comment on above: Performed By: #### 2 4317-0 #### [facility] [address] [place] [address] MCH 27.2 pcg Normal 27.0-34.0 [facility] Comment on above: Performed By: #### 2 4317-0 #### [facility] [address] [place] [address] MCHC (RBC) [Mass/Vol] 33.4 g/dL Normal 32.0-36.0 [place] [facility] Comment on above: Performed By: #### 2 4317-0 #### [facility] [address] [place] [address] MCV (RBC) [Entitic vol] 81.4 fL Normal 80.0-97.0 [facility] Comment on above: Performed By: #### 2 4317-0 #### [facility] [address] [place] [address] Monocytes (Bld) [#/Vol] 0.50 10*3/uL Normal 0.00-0.90 [facility] Comment on above: Performed By: #### 2 4317-0 #### [facility] [address] [place] [address] Monocytes/100 WBC (Bld) 6.5 % Normal 0.0-12.0 [facility] Comment on above: Performed By: #### 2 4317-0 #### [facility] [address] [place] [address] Neutrophils Absolute 4.00 K/mcL Normal 1.80-7.70 [facility] Comment on above: Performed By: #### 2 4317-0 #### [facility] [address] [place] [address] Neutrophils/100 WBC (Bld) 50.3 % Normal 40.0-70.0 [facility] Comment on above: Performed By: #### 2 4317-0 #### [facility] [address] [place] [address] Platelet mean volume (Bld) [Entitic vol] 6.6 fL Normal 6.2-12.1 [facility] Comment on above: Performed By: #### 2 4317-0 #### [facility] [address] [place] [address] Platelets (Bld) [#/Vol] 356 10*3/uL Normal 142-424 [facility] Comment on above: Performed By: #### 2 4317-0 #### [facility] [address] [place] [address] RBC (Bld) [#/Vol] 3.98 10*6/uL Normal 3.80-5.10 [facility] Comment on above: Performed By: #### 2 4317-0 #### [facility] [address] [place] [address] WBC (Bld) [#/Vol] 7.9 10*3/uL Normal 4.6-10.2 [facility] Comment on above: Performed By: #### 2 4317-0 #### [facility] [address] [place] [address] NM STRESS TEST WITH MYOCARDI AL PERFUSIONon [...] 71 109 78 161 85 1.0 67 42358.0 138 67 Normal [facility] Tropinin I.cardiac panel Hig h sensitivity methodon 04-06-2021 High Sensitivity Troponin I 9 ng/L Normal <14 [facility] Comment on above: Performed By: #### 8 9577-1 #### [facility] [address] [place] [address] Basic metabolic 2000 panelon 04-05-2021 High Sensitivity Troponin I 6 ng/L Normal <14 [facility] Comment on above: Performed By: #### 2 4321-2 #### [facility] [address] [place] [address] Hemogram and platelets WO di fferential panel (Bld)on 04-05-2021 Basophils (Bld) [#/Vol] 0.00 10*3/uL Normal 0.00-0.20 [facility] Comment on above: Performed By: #### 2 4317-0 #### [facility] [address] [place] [address] Basophils/100 WBC (Bld) 0.5 % [facility]0-2.0 [facility] on above: Performed By: #### 2 4317-0 #### [facility] [address] [place] [address] Eosinophils (Bld) [#/Vol] 0.20 10*3/uL Normal 0.00-0.70 [facility] Comment on above: Performed By: #### 2 4317-0 #### [facility] [address] [place] [address] Eosinophils/100 WBC (Bld) 2.1 % Normal 0.0-7.0 [facility] Comment on above: Performed By: #### 2 4317-0 #### [facility] [address] [place] [address] Erythrocyte distribution width (RBC) [Ratio] 15.4 % High 11.0-14.8 [facility] Comment on above: Performed By: #### 2 4317-0 #### [facility] [address] [place] [address] Hematocrit (Bld) [Volume fraction] 33.6 % Low 35.0-45.0 [facility] Comment on above: Performed By: #### 2 4317-0 #### [facility] [address] [place] [address] Hemoglobin (Bld) [Mass/Vol] 11.1 g/dL Low 12.0-16.0 [facility] Comment on above: Performed By: #### 2 4317-0 #### [facility] [address] [place] [address] Lymphocytes (Bld) [#/Vol] 2.80 10*3/uL Normal 1.00-4.80 [facility] Comment on above: Performed By: #### 2 4317-0 #### [facility] [address] [place] [address] Lymphocytes/100 WBC (Bld) 28.2 % Normal 22.0-44.0 [facility] Comment on above: Performed By: #### 2 4317-0 #### [facility] [address] [place] [address] MCH 27.7 pcg Normal 27.0-34.0 [facility] Comment on above: Performed By: #### 2 4317-0 #### [facility] [address] [place] [address] MCHC (RBC) [Mass/Vol] 33.2 g/dL Normal 32.0-36.0 [place] [facility] Comment on above: Performed By: #### 2 4317-0 #### [facility] [address] [place] [address] MCV (RBC) [Entitic vol] 83.2 fL Normal 80.0-97.0 [facility] Comment on above: Performed By: #### 2 4317-0 #### [facility] [address] [place] [address] Monocytes (Bld) [#/Vol] 0.50 10*3/uL Normal 0.00-0.90 [facility] Comment on above: Performed By: #### 2 4317-0 #### [facility] [address] [place] [address] Monocytes/100 WBC (Bld) 5.2 % Normal 0.0-12.0 [facility] Comment on above: Performed By: #### 2 4317-0 #### [facility] [address] [place] [address] Neutrophils Absolute 6.30 K/mcL Normal 1.80-7.70 [facility] Comment on above: Performed By: #### 2 4317-0 #### [facility] [address] [place] [address] Neutrophils/100 WBC (Bld) 64.0 % Normal 40.0-70.0 [facility] Comment on above: Performed By: #### 2 4317-0 #### [facility] [address] [place] [address] Platelet mean volume (Bld) [Entitic vol] 6.9 fL Normal 6.2-12.1 [facility] Comment on above: Performed By: #### 2 4317-0 #### [facility] [address] [place] [address] Platelets (Bld) [#/Vol] 386 10*3/uL Normal 142-424 [facility] Comment on above: Performed By: #### 2 4317-0 #### [facility] [address] [place] [address] RBC (Bld) [#/Vol] 4.03 10*6/uL Normal 3.80-5.10 [facility] Comment on above: Performed By: #### 2 4317-0 #### [facility] [address] [place] [address] WBC (Bld) [#/Vol] 9.8 10*3/uL Normal 4.6-10.2 [facility] Comment on above: Performed By: #### 2 4317-0 #### [facility] [address] [place] [address] Natriuretic peptide B [Mass/ Vol]on 04-05-2021 BNP 44 pcg/mL Normal 0-100 [facility] Comment on above: Result Comment: <100 : CHF is unlikely 100-400: Possible left ventricular dysfunction-unlikely acute decompensation >400: Suspicious for decompensated heart failure Performed By: #### 3 0934-4 #### [facility] [address] [place] [address] SARS-CoV-2 RNA Resp Ql CAL+p robeon 04-05-2021 SARS-CoV-2 (COVID-19) RNA CAL+probe Ql (Resp) Not detected Normal Not Detected [facility] Comment on above: Performed By: #### 9 4500-6 #### [facility] ([facility]) [facility] [address] [place] [address] TRANSTHORACIC ECHOCARDIOGRAM (TTE) COMPLETE (CONTRAST/BUBBLE/3D PRN)on 04-05-2021 [...] in the normal range. EF by 2D Strikcland biplane is 69%. ? No regional LV [...] 36 27 1.1 30 10 1.68 Normal [facility] Tropinin I.cardiac panel Hig h sensitivity methodon 04-05-2021 High Sensitivity Troponin I 12 ng/L Normal <14 [facility] Comment on above: Performed By: #### 8 9577-1 #### [facility] ([facility]) [facility] [address] [place] [address] Urinalysis dipstick W Reflex Culture panel (U)on 04-05-2021 Bilirubin, Urine Negative Normal Negative [facility] Comment on above: Performed By: #### 5 7019-2 #### [facility] [address] [place] [address] Blood, Urine Negative Normal Negative [facility] Comment on above: Performed By: #### 5 7019-2 #### [facility] [address] [place] [address] Clarity (U) Clear Normal Clear [facility] Comment on above: Performed By: #### 5 7019-2 #### [facility] [address] [place] [address] Color (U) Straw Abnormal Yellow [facility] Comment on above: Performed By: #### 5 7019-2 #### [facility] [address] [place] [address] Glucose Ql (U) >=500 Abnormal Normal [facility] Comment on above: Performed By: #### 5 7019-2 #### [facility] [address] [place] [address] Ketones Ql (U) Negative Normal Negative [facility] Comment on above: Performed By: #### 5 7019-2 #### [facility] [address] [place] [address] Leukocytes, Urine Negative Normal Negative [facility] Comment on above: Performed By: #### 5 7019-2 #### [facility] [address] [place] [address] Nitrite, Urine Negative Normal Negative [facility] Comment on above: Performed By: #### 5 7019-2 #### [facility] [address] [place] [address] pH (U) 7.0 [pH] Normal 5.0-8.0 [facility] Comment on above: Performed By: #### 5 7019-2 #### [facility] [address] [place] [address] Protein, Urine Negative Normal Negative [facility] Comment on above: Performed By: #### 5 7019-2 #### [facility] [address] [place] [address] Specific Hustle Urine 1.014 Normal 1.002-1.030 [facility] Comment on above: Performed By: #### 5 7019-2 #### [facility] [address] [place] [address] Urobilinogen, Urine Normal Normal Normal [facility] Comment on above: Performed By: #### 5 7019-2 #### [facility] [address] [place] [address] XR CHEST 1 VIEWon 04-05-2021 XR CHEST [...] Self Edit Transcribed Date: 04/05/2021 14:59 Normal [facility] XR HAND LEFT 3+ VIEWSon 02- [...] the second, third and fourth fingers. Normal [facility] CBC(NO DIFF)on 03-15-2021 Erythrocyte distribution width (RBC) [Ratio] 15.2 % High 11.5-14.5 [facility] Comment on above: Performed By: #### H EMOG, CMPF, LIP2, RTSH, T42 #### [place] [address] Hematocrit (Bld) [Volume fraction] 34.3 % Low 36.0-48.0 [facility] Comment on above: Performed By: #### H EMOG, CMPF, LIP2, RTSH, T42 #### Testing performed at [place] [id number] Hemoglobin (Bld) [Mass/Vol] 11.1 g/dL Low 12.0-16.0 [facility] Comment on above: Performed By: #### H EMOG, CMPF, LIP2, RTSH, T42 #### Testing performed at [place] [id number] MCH (RBC) [Entitic mass] 27.0 pg Normal 26.0-35.0 [facility] Comment on above: Performed By: #### H EMOG, CMPF, LIP2, RTSH, T42 #### Testing performed at [place] [id number] MCHC (RBC) [Mass/Vol] 32.4 g/dL Normal 27.0-37.0 [facility] Comment on above: Performed By: #### H EMOG, CMPF, LIP2, RTSH, T42 #### [place] [address] MCV (RBC) [Entitic vol] 83.4 fL Normal 80.0-100.0 [facility] Comment on above: Performed By: #### H EMOG, CMPF, LIP2, RTSH, T42 #### [place] [address] Platelet mean volume (Bld) [Entitic vol] 7.1 fL Low 7.4-11.0 [facility] Comment on above: Result Comment: Test ing performed at [place] [address] Performed By: #### H EMOG, CMPF, LIP2, RTSH, T42 #### [place] [address] Platelets (Bld) [#/Vol] 339 10*3/uL Normal 130.0-400.0 [facility] Comment on above: Performed By: #### H EMOG, CMPF, LIP2, RTSH, T42 #### [place] [address] RBC (Bld) [#/Vol] 4.11 10*6/uL Normal 4.0-5.4 [facility] Comment on above: Performed By: #### H EMOG, CMPF, LIP2, RTSH, T42 #### [place] [address] WBC (Bld) [#/Vol] 6.8 10*3/uL Normal 3.6-11.0 [facility] Comment on above: Performed By: #### H EMOG, CMPF, LIP2, RTSH, T42 #### [place] [address] CMP FASTINGon 03-15-2021 A:G RATIO 1.1 RATIO Low 1.3-2.2 [facility] Comment on above: Performed By: #### H EMOG, CMPF, LIP2, RTSH, T42 #### Testing performed at [address] [address] ALBUMIN 3.9 G/dl Normal 3.5-5.0 [facility] Comment on above: Performed By: #### H EMOG, CMPF, LIP2, RTSH, T42 #### Testing performed at [address] [address] ALP [Catalytic activity/Vol] 113 U/L Normal 38-126 [facility] Comment on above: Performed By: #### H EMOG, CMPF, LIP2, RTSH, T42 #### Testing performed at [address] [address] ALT [Catalytic activity/Vol] 14 U/L Normal <35 [facility] Comment on above: Performed By: #### H EMOG, CMPF, LIP2, RTSH, T42 #### Testing performed at [address] [address] AST [Catalytic activity/Vol] 19 U/L Normal 14-36 [facility] Comment on above: Performed By: #### H EMOG, CMPF, LIP2, RTSH, T42 #### Testing performed at [address] [address] Bilirubin [Mass/Vol] 0.4 mg/dL Normal 0.2-1.3 [facility] Comment on above: Performed By: #### H EMOG, CMPF, LIP2, RTSH, T42 #### Testing performed at [address] [address] Calcium [Mass/Vol] 9.6 mg/dL Normal 8.4-10.2 [facility] Comment on above: Performed By: #### H EMOG, CMPF, LIP2, RTSH, T42 #### Testing performed at [address] [address] Chloride [Moles/Vol] 105 mmol/L Normal 98-107 [facility] Comment on above: Result Comment: Vasyl hickman note: Triglyceride levels of 600mg/dL or higher may positively bias chloride results by approximately 2.1 mmol Performed By: #### H EMOG, CMPF, LIP2, RTSH, T42 #### [place] [address] CO2 [Moles/Vol] 24 mmol/L Normal 22-30 [facility] Comment on above: Performed By: #### H EMOG, CMPF, LIP2, RTSH, T42 #### [place] [address] Creatinine [Mass/Vol] 1.20 mg/dL Normal 0.7-1.2 [facility] Comment on above: Performed By: #### H EMOG, CMPF, LIP2, RTSH, T42 #### [place] [address] EST. GFR, 59 ml/min/1.73sq.m [facility] Comment on above: Performed By: #### H EMOG, CMPF, LIP2, RTSH, T42 #### [place] [address] EST. GFR,Non 49 ml/min/1.73sq.m [facility] Comment on above: Performed By: #### H EMOG, CMPF, LIP2, RTSH, T42 #### [place] [address] GFR Information Average GFR for 50-5 9 years old = 93. 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 Kidney failure, GFR = <15. The GFR estimate is not adjusted for extreme body surface area or acute process, nor has it been validated for women or ethnic groups other than and . Testing performed at [place] [address] Performed By: #### H EMOG, CMPF, LIP2, RTSH, T42 #### Testing performed at [place] [id number] Glucose [Mass/Vol] 222 mg/dL High 70-100 [facility] Comment on above: Result Comment: NORMAL <100 mg/dL PREDIABETES 101-126 mg/dL DIABETES 126 mg/dL or higher Performed By: #### H EMOG, CMPF, LIP2, RTSH, T42 #### Testing performed at [place] [id number] Potassium [Moles/Vol] 4.5 mmol/L Normal 3.5-5.1 [facility] Comment on above: Performed By: #### H EMOG, CMPF, LIP2, RTSH, T42 #### Testing performed at [place] [id number] Protein [Mass/Vol] 7.3 g/dL Normal 6.3-8.2 [facility] Comment on above: Performed By: #### H EMOG, CMPF, LIP2, RTSH, T42 #### Testing performed at [place] [id number] Sodium [Moles/Vol] 139 mmol/L Normal 137-145 [facility] Comment on above: Performed By: #### H EMOG, CMPF, LIP2, RTSH, T42 #### [place] [address] Urea nitrogen [Mass/Vol] 26 mg/dL High 7-20 [facility] Comment on above: Performed By: #### H EMOG, CMPF, LIP2, RTSH, T42 #### [place] [address] FREE T4on 03-15-2021 Free T4 [Mass/Vol] 1.07 ng/dL Normal 0.78-2.19 [facility] Comment on above: Result Comment: Test ing performed at [place] [address] Performed By: #### H EMOG, CMPF, LIP2, RTSH, T42 #### [place] [address] HEMOGLOBIN A1Con 03-15-2021 Glucose [Mass/Vol] 289 mg/dL Normal [facility] HbA1c (Bld) [Mass fraction] 11.7 % High 0-6 [facility] Comment on above: Result Comment: NORMAL <5.7% PREDIABETES 5.7-6.4% DIABETES 6.5% OR HIGHER LIPID PROFILEon 03-15-2021 Cholesterol [Mass/Vol] 226 mg/dL High 107-217 [facility] Comment on above: Performed By: #### H EMOG, CMPF, LIP2, RTSH, T42 #### Testing performed at [address] [address] Cholesterol in HDL [Mass/Vol] 48 mg/dL Normal 33-75 [facility] Comment on above: Performed By: #### H EMOG, CMPF, LIP2, RTSH, T42 #### Testing performed at [address] [address] Cholesterol in LDL [Mass/Vol] 143 mg/dL Normal [facility] Comment on above: Performed By: #### H EMOG, CMPF, LIP2, RTSH, T42 #### Testing performed at [address] [address] Cholesterol in VLDL [Mass/Vol] 35 mg/dL High 5.0-25 [facility] Comment on above: Performed By: #### H EMOG, CMPF, LIP2, RTSH, T42 #### Testing performed at [address] [address] Cholesterol.total/Erika sterol in HDL [Mass ratio] 4.71 {ratio} Normal [facility] Comment on above: Result Comment: RISK TOTAL/HDL RATIO MEN WOMEN 1/2 AVERAGE 3.43 3.27 AVERAGE 4.97 4.44 2X AVERAGE 9.55 7.05 3X AVERAGE 23.99 11.04 Testing performed at [place], [place] [address] Performed By: #### H EMOG, CMPF, LIP2, RTSH, T42 #### Testing performed at [address] [address] Triglyceride [Mass/Vol] 174 mg/dL High 0-150 [facility] Comment on above: Performed By: #### H EMOG, CMPF, LIP2, RTSH, T42 #### [place] [address] MALB/CREAT RATIO,URINEon MALB/CREAT RATIO,URINE 126.2 mg MALB/g CREAT High 1. 3-30.0 [facility] Comment on above: Result Comment: Test ing performed at [place] [address] Performed By: #### M CRAT #### [place] [address] MICROALBUMIN,RANDOM URINE 133.1 mg/L High 0-16.7 [facility] Comment on above: Performed By: #### M CRAT #### [place] [address] URINE CREATININE RANDOM 105.5 MG/DL Normal [facility] Comment on above: Result Comment: NO N ORMAL VALUES ESTABLISHED FOR RANDOM SPECIMENS Performed By: #### M CRAT #### [place] [address] TSH,REFLEX FREE T4on 022 TSH,REFLEX FREE T4 7.180 uIU/ML High 0.46-4.68 [facility] Comment on above: Result Comment: Test ing performed at [place] [address] Performed By: #### H EMOG, CMPF, LIP2, RTSH, T42 #### [place] [address] BUN CREAon 03-07-2021 Creatinine [Mass/Vol] 1.16 mg/dL Normal 0.50-1.20 [facility] Comment on above: Order Comment: Prior to first [facility] and every 2 weeks if baseline CR is within normal limits. Performed By: #### B CR #### [facility] (DEFAULT) [address] [place] [address] EST GFR, 58 mL/min/1.73sqM Low >=60 [facility] Comment on above: Order Comment: Prior to first [facility] and every 2 weeks if baseline CR is within normal limits. Performed By: #### B CR #### [facility] (DEFAULT) [address] [address] EST GFR,Non 48 mL/min/1.73sqM Low >=60 [facility] Comment on above: Order Comment: Prior to first [facility] and every 2 weeks if baseline CR is within normal limits. Performed By: #### B CR #### [facility] (DEFAULT) [address] [place] [address] Urea nitrogen [Mass/Vol] 19 mg/dL Normal 7-25 [facility] Comment on above: Order Comment: Prior to first [facility] and every 2 weeks if baseline CR is within normal limits. Performed By: #### B CR #### [facility] (DEFAULT) [address] [place] [address] Urea nitrogen/Creatinine [Mass ratio] 16 mg/mg Normal [facility] Comment on above: Order Comment: Prior to first [facility] and every 2 weeks if baseline CR is within normal limits. Performed By: #### B CR #### [facility] (DEFAULT) [address] [address] CBC AND ELECTRONIC DIFFon Basophils (Bld) [#/Vol] 10*3/uL Normal 0.00-0.15 [facility] Comment on above: Order Comment: Prior to first [facility] and every 2 weeks if baseline CR is within normal limits. Performed By: #### B CR #### [facility] (DEFAULT) [address] [address] Basophils/100 WBC (Bld) 0.2 % Normal [facility] Comment on above: Order Comment: Prior to first [facility] and every 2 weeks if baseline CR is within normal limits. Performed By: #### B CR #### [facility] (DEFAULT) [address] [address] DIFF STATUS Electronic Differential Normal [facility] Comment on above: Order Comment: Prior to first [facility] and every 2 weeks if baseline CR is within normal limits. Performed By: #### B CR #### [facility] (DEFAULT) [address] [address] Eosinophils (Bld) [#/Vol] 0.21 10*3/uL Normal 0.00-0.42 [facility] Comment on above: Order Comment: Prior to first [facility] and every 2 weeks if baseline CR is within normal limits. Performed By: #### B CR #### [facility] (DEFAULT) [address] [address] Eosinophils/100 WBC (Bld) 2.3 % Normal [facility] Comment on above: Order Comment: Prior to first [facility] and every 2 weeks if baseline CR is within normal limits. Performed By: #### B CR #### [facility] (DEFAULT) [address] [address] Hematocrit (Bld) [Volume fraction] 32.6 % Low 34.9-44.3 [facility] Comment on above: Order Comment: Prior to first [facility] and every 2 weeks if baseline CR is within normal limits. Performed By: #### B CR #### [facility] (DEFAULT) [address] [address] Hemoglobin (Bld) [Mass/Vol] 10.2 g/dL Low 11.4-15.2 [facility] Comment on above: Order Comment: Prior to first [facility] and every 2 weeks if baseline CR is within normal limits. Performed By: #### B CR #### [facility] (DEFAULT) [address] [address] Immature Grans % 0.2 % Normal [facility] Comment on above: Order Comment: Prior to first [facility] and every 2 weeks if baseline CR is within normal limits. Performed By: #### B CR #### [facility] (DEFAULT) [address] [address] Immature Grans Absolute <0.04 Normal <=0.09 [facility] Comment on above: Order Comment: Prior to first [facility] and every 2 weeks if baseline CR is within normal limits. Performed By: #### B CR #### [facility] (DEFAULT) [address] [address] Lymphocytes (Bld) [#/Vol] 2.26 10*3/uL Normal 1.16-3.51 [facility] Comment on above: Order Comment: Prior to first [facility] and every 2 weeks if baseline CR is within normal limits. Performed By: #### B CR #### [facility] (DEFAULT) [address] [address] Lymphocytes/100 WBC (Bld) 25.3 % Normal [facility] Comment on above: Order Comment: Prior to first [facility] and every 2 weeks if baseline CR is within normal limits. Performed By: #### B CR #### [facility] (DEFAULT) [address] [address] MCV (RBC) [Entitic vol] 86.2 fL Normal 79.6-97.7 [facility] Comment on above: Order Comment: Prior to first [facility] and every 2 weeks if baseline CR is within normal limits. Performed By: #### B CR #### [facility] (DEFAULT) [address] [address] Mean Cell Hgb 27.0 pg Normal 25.9-33.9 [facility] Comment on above: Order Comment: Prior to first [facility] and every 2 weeks if baseline CR is within normal limits. Performed By: #### B CR #### [facility] (DEFAULT) [address] [address] Mean Cell Hgb Conc 31.3 g/dL Low 31.4-35.9 [facility] Comment on above: Order Comment: Prior to first [facility] and every 2 weeks if baseline CR is within normal limits. Performed By: #### B CR #### [facility] (DEFAULT) [address] [address] Monocytes (Bld) [#/Vol] 0.44 10*3/uL Normal 0.22-0.87 [facility] Comment on above: Order Comment: Prior to first [facility] and every 2 weeks if baseline CR is within normal limits. Performed By: #### B CR #### [facility] (DEFAULT) [address] [address] Monocytes/100 WBC (Bld) 4.9 % Normal [facility] Comment on above: Order Comment: Prior to first [facility] and every 2 weeks if baseline CR is within normal limits. Performed By: #### B CR #### [facility] (DEFAULT) [address] [address] Nucleated RBC 0.0 /100 WBC Normal <=0.2 [facility] Comment on above: Order Comment: Prior to first [facility] and every 2 weeks if baseline CR is within normal limits. Performed By: #### B CR #### [facility] (DEFAULT) [address] [address] Platelet mean volume (Bld) [Entitic vol] 9.7 fL Normal 8.5-12.2 [facility] Comment on above: Order Comment: Prior to first [facility] and every 2 weeks if baseline CR is within normal limits. Performed By: #### B CR #### [facility] (DEFAULT) [address] [address] Platelets (Bld) [#/Vol] 350 10*3/uL Normal 150-393 [facility] Comment on above: Order Comment: Prior to first [facility] and every 2 weeks if baseline CR is within normal limits. Performed By: #### B CR #### [facility] (DEFAULT) [address] [address] RBC (Bld) [#/Vol] 3.78 10*6/uL Low 3.91-5.04 [facility] Comment on above: Order Comment: Prior to first [facility] and every 2 weeks if baseline CR is within normal limits. Performed By: #### B CR #### [facility] (DEFAULT) [address] [address] RBC Distribution 14.6 % Normal 10.8-14.9 [facility] Comment on above: Order Comment: Prior to first [facility] and every 2 weeks if baseline CR is within normal limits. Performed By: #### B CR #### [facility] (DEFAULT) [address] [address] Segs + Bands Auto 67.1 % Normal [facility] Comment on above: Order Comment: Prior to first [facility] and every 2 weeks if baseline CR is within normal limits. Performed By: #### B CR #### [facility] (DEFAULT) [address] [address] Segs + Bands,Absolute Auto 5.99 K/uL Normal 1.64-7.28 [facility] Comment on above: Order Comment: Prior to first [facility] and every 2 weeks if baseline CR is within normal limits. Performed By: #### B CR #### [facility] (DEFAULT) [address] [address] WBC (Bld) [#/Vol] 8.94 10*3/uL Normal 3.99-11.19 [facility] Comment on above: Order Comment: Prior to first [facility] and every 2 weeks if baseline CR is within normal limits. Performed By: #### B CR #### [facility] (DEFAULT) [address] [address] BUN CREAon 02-21-2021 Creatinine [Mass/Vol] 1.19 mg/dL Normal 0.50-1.20 [facility] Comment on above: Order Comment: Prior to first [facility] and every 2 weeks if baseline CR is within normal limits. Performed By: #### B CR #### [facility] (DEFAULT) [address] [place] [address] EST GFR, 56 mL/min/1.73sqM Low >=60 [facility] Comment on above: Order Comment: Prior to first [facility] and every 2 weeks if baseline CR is within normal limits. Performed By: #### B CR #### [facility] (DEFAULT) [address] [place] [address] EST GFR,Non 47 mL/min/1.73sqM Low >=60 [facility] Comment on above: Order Comment: Prior to first [facility] and every 2 weeks if baseline CR is within normal limits. Performed By: #### B CR #### [facility] (DEFAULT) [address] [address] Urea nitrogen [Mass/Vol] 28 mg/dL High 7-25 [facility] Comment on above: Order Comment: Prior to first [facility] and every 2 weeks if baseline CR is within normal limits. Performed By: #### B CR #### [facility] (DEFAULT) [address] [address] Urea nitrogen/Creatinine [Mass ratio] 24 mg/mg Normal [facility] Comment on above: Order Comment: Prior to first [facility] and every 2 weeks if baseline CR is within normal limits. Performed By: #### B CR #### [facility] (DEFAULT) [address] [place] [address] CBC AND ELECTRONIC DIFFon Basophils (Bld) [#/Vol] 0.05 10*3/uL Normal 0.00-0.15 [facility] Comment on above: Order Comment: Prior to first [facility] and every 2 weeks if baseline CR is within normal limits. Performed By: #### B CR #### [facility] (DEFAULT) [address] [place] [address] Basophils/100 WBC (Bld) 0.6 % Normal [facility] Comment on above: Order Comment: Prior to first [facility] and every 2 weeks if baseline CR is within normal limits. Performed By: #### B CR #### [facility] (DEFAULT) [address] [address] DIFF STATUS Electronic Differential Normal [facility] Comment on above: Order Comment: Prior to first [facility] and every 2 weeks if baseline CR is within normal limits. Performed By: #### B CR #### [facility] (DEFAULT) [address] [address] Eosinophils (Bld) [#/Vol] 0.16 10*3/uL Normal 0.00-0.42 [facility] Comment on above: Order Comment: Prior to first [facility] and every 2 weeks if baseline CR is within normal limits. Performed By: #### B CR #### [facility] (DEFAULT) [address] [address] Eosinophils/100 WBC (Bld) 1.8 % Normal [facility] Comment on above: Order Comment: Prior to first [facility] and every 2 weeks if baseline CR is within normal limits. Performed By: #### B CR #### [facility] (DEFAULT) [address] [address] Hematocrit (Bld) [Volume fraction] 34.7 % Low 34.9-44.3 [facility] Comment on above: Order Comment: Prior to first [facility] Infusion and every 2 weeks if baseline CR is within normal limits. Performed By: #### B CR #### [facility] (DEFAULT) [address] [address] Hemoglobin (Bld) [Mass/Vol] 11.0 g/dL Low 11.4-15.2 [facility] Comment on above: Order Comment: Prior to first [facility] Infusion and every 2 weeks if baseline CR is within normal limits. Performed By: #### B CR #### [facility] (DEFAULT) [address] [address] Immature Grans % 0.1 % Normal [facility] Comment on above: Order Comment: Prior to first [facility] Infusion and every 2 weeks if baseline CR is within normal limits. Performed By: #### B CR #### [facility] (DEFAULT) [address] [address] Immature Grans Absolute <0.04 Normal <=0.09 [facility] Comment on above: Order Comment: Prior to first [facility] Infusion and every 2 weeks if baseline CR is within normal limits. Performed By: #### B CR #### [facility] (DEFAULT) [address] [address] Lymphocytes (Bld) [#/Vol] 2.61 10*3/uL Normal 1.16-3.51 [facility] Comment on above: Order Comment: Prior to first [facility] Infusion and every 2 weeks if baseline CR is within normal limits. Performed By: #### B CR #### [facility] (DEFAULT) [address] [address] Lymphocytes/100 WBC (Bld) 29.4 % Normal [facility] Comment on above: Order Comment: Prior to first [facility] Infusion and every 2 weeks if baseline CR is within normal limits. Performed By: #### B CR #### [facility] (DEFAULT) [address] [address] MCV (RBC) [Entitic vol] 85.5 fL Normal 79.6-97.7 [facility] Comment on above: Order Comment: Prior to first [facility] Infusion and every 2 weeks if baseline CR is within normal limits. Performed By: #### B CR #### [facility] (DEFAULT) [address] [address] Mean Cell Hgb 27.1 pg Normal 25.9-33.9 [facility] Comment on above: Order Comment: Prior to first [facility] Infusion and every 2 weeks if baseline CR is within normal limits. Performed By: #### B CR #### [facility] (DEFAULT) [address] [address] Mean Cell Hgb Conc 31.7 g/dL Normal 31.4-35.9 [facility] Comment on above: Order Comment: Prior to first [facility] Infusion and every 2 weeks if baseline CR is within normal limits. Performed By: #### B CR #### [facility] (DEFAULT) [address] [address] Monocytes (Bld) [#/Vol] 0.39 10*3/uL Normal 0.22-0.87 [facility] Comment on above: Order Comment: Prior to first [facility] Infusion and every 2 weeks if baseline CR is within normal limits. Performed By: #### B CR #### [facility] (DEFAULT) [address] [address] Monocytes/100 WBC (Bld) 4.4 % Normal [facility] Comment on above: Order Comment: Prior to first [facility] Infusion and every 2 weeks if baseline CR is within normal limits. Performed By: #### B CR #### [facility] (DEFAULT) [address] [address] Nucleated RBC 0.0 /100 WBC Normal <=0.2 [facility] Comment on above: Order Comment: Prior to first [facility] Infusion and every 2 weeks if baseline CR is within normal limits. Performed By: #### B CR #### [facility] (DEFAULT) [address] [address] Platelet mean volume (Bld) [Entitic vol] 9.7 fL Normal 8.5-12.2 [facility] Comment on above: Order Comment: Prior to first [facility] Infusion and every 2 weeks if baseline CR is within normal limits. Performed By: #### B CR #### [facility] (DEFAULT) [address] [address] Platelets (Bld) [#/Vol] 383 10*3/uL Normal 150-393 [facility] Comment on above: Order Comment: Prior to first [facility] Infusion and every 2 weeks if baseline CR is within normal limits. Performed By: #### B CR #### [facility] (DEFAULT) [address] [address] RBC (Bld) [#/Vol] 4.06 10*6/uL Normal 3.91-5.04 [facility] Comment on above: Order Comment: Prior to first [facility] Infusion and every 2 weeks if baseline CR is within normal limits. Performed By: #### B CR #### [facility] (DEFAULT) [address] [place] [address] RBC Distribution 14.5 % Normal 10.8-14.9 [facility] Comment on above: Order Comment: Prior to first [facility] Infusion and every 2 weeks if baseline CR is within normal limits. Performed By: #### B CR #### [facility] (DEFAULT) [address] [place] [address] Segs + Bands Auto 63.7 % Normal [facility] Comment on above: Order Comment: Prior to first [facility] Infusion and every 2 weeks if baseline CR is within normal limits. Performed By: #### B CR #### [facility] (DEFAULT) [address] [address] Segs + Bands,Absolute Auto 5.66 K/uL Normal 1.64-7.28 [facility] Comment on above: Order Comment: Prior to first [facility] Infusion and every 2 weeks if baseline CR is within normal limits. Performed By: #### B CR #### [facility] (DEFAULT) [address] [place] [address] WBC (Bld) [#/Vol] 8.88 10*3/uL Normal 3.99-11.19 [facility] Comment on above: Order Comment: Prior to first [facility] Infusion and every 2 weeks if baseline CR is within normal limits. Performed By: #### B CR #### [facility] (DEFAULT) [address] [place] [address] OCT/HRT MACULA OUon 02-14-20 21 OCT/HRT MAC[place]A OU Right Eye Quality was good. Findings include subretinal fluid. Interval change is better. Recommendation for management is to continue treatment. Left Eye Quality was good. Findings include subretinal fluid. Interval change is better. Recommendation for management is to continue treatment. Normal [facility] BUN CREAon 02-07-2021 Creatinine [Mass/Vol] 1.20 mg/dL Normal 0.50-1.20 [facility] Comment on above: Order Comment: Prior to first [facility] Infusion and every 2 weeks if baseline CR is within normal limits. Performed By: #### B CR #### [facility] (DEFAULT) [address] [address] EST GFR, 56 mL/min/1.73sqM Low >=60 [facility] Comment on above: Order Comment: Prior to first [facility] Infusion and every 2 weeks if baseline CR is within normal limits. Performed By: #### B CR #### [facility] (DEFAULT) [address] [place] [address] EST GFR,Non 46 mL/min/1.73sqM Low >=60 [facility] Comment on above: Order Comment: Prior to first [facility] Infusion and every 2 weeks if baseline CR is within normal limits. Performed By: #### B CR #### [facility] (DEFAULT) [address] [place] [address] Urea nitrogen [Mass/Vol] 21 mg/dL Normal 09-07 [facility] Comment on above: Order Comment: Prior to first [facility] Infusion and every 2 weeks if baseline CR is within normal limits. Performed By: #### B CR #### [facility] (DEFAULT) [address] [place] [address] Urea nitrogen/Creatinine [Mass ratio] 18 mg/mg Normal [facility] Comment on above: Order Comment: Prior to first [facility] Infusion and every 2 weeks if baseline CR is within normal limits. Performed By: #### B CR #### [facility] (DEFAULT) [address] [place] [address] CBC AND ELECTRONIC DIFFon 12 -22-2021 Basophils (Bld) [#/Vol] 0.05 10*3/uL Normal 0.00-0.15 [facility] Comment on above: Order Comment: Prior to first [facility] Infusion and then every 2 weeks.until results within normal limits. Collect weekly if baseline is abnormal. Performed By: #### L [id number] #### [facility] (DEFAULT) [address] [address] Basophils/100 WBC (Bld) 0.5 % Normal [facility] Comment on above: Order Comment: Prior to first [facility] Infusion and then every 2 weeks.until results within normal limits. Collect weekly if baseline is abnormal. Performed By: #### L [id number] #### [facility] (DEFAULT) [address] [address] DIFF STATUS Electronic Differential Normal [facility] Comment on above: Order Comment: Prior to first [facility] Infusion and then every 2 weeks.until results within normal limits. Collect weekly if baseline is abnormal. Performed By: #### L [id number] #### [facility] (DEFAULT) [address] [address] Eosinophils (Bld) [#/Vol] 0.31 10*3/uL Normal 0.00-0.42 [facility] Comment on above: Order Comment: Prior to first [facility] Infusion and then every 2 weeks.until results within normal limits. Collect weekly if baseline is abnormal. Performed By: #### L [id number] #### [facility] (DEFAULT) [address] [address] Eosinophils/100 WBC (Bld) 3.3 % Normal [facility] Comment on above: Order Comment: Prior to first [facility] Infusion and then every 2 weeks.until results within normal limits. Collect weekly if baseline is abnormal. Performed By: #### L [id number] #### [facility] (DEFAULT) [address] [address] Hematocrit (Bld) [Volume fraction] 33.5 % Low 34.9-44.3 [facility] Comment on above: Order Comment: Prior to first [facility] Infusion and then every 2 weeks.until results within normal limits. Collect weekly if baseline is abnormal. Performed By: #### L [id number] #### [facility] (DEFAULT) [address] [address] Hemoglobin (Bld) [Mass/Vol] 10.5 g/dL Low 11.4-15.2 [facility] Comment on above: Order Comment: Prior to first [facility] Infusion and then every 2 weeks.until results within normal limits. Collect weekly if baseline is abnormal. Performed By: #### L [id number] #### [facility] (DEFAULT) [address] [address] Immature Grans % 0.2 % Normal [facility] Comment on above: Order Comment: Prior to first [facility] Infusion and then every 2 weeks.until results within normal limits. Collect weekly if baseline is abnormal. Performed By: #### L [id number] #### [facility] (DEFAULT) [address] [address] Immature Grans Absolute <0.04 Normal <=0.09 [facility] Comment on above: Order Comment: Prior to first [facility] Infusion and then every 2 weeks.until results within normal limits. Collect weekly if baseline is abnormal. Performed By: #### L [id number] #### [facility] (DEFAULT) [address] [address] Lymphocytes (Bld) [#/Vol] 2.84 10*3/uL Normal 1.16-3.51 [facility] Comment on above: Order Comment: Prior to first [facility] Infusion and then every 2 weeks.until results within normal limits. Collect weekly if baseline is abnormal. Performed By: #### L [id number] #### [facility] (DEFAULT) [address] [address] Lymphocytes/100 WBC (Bld) 30.6 % Normal [facility] Comment on above: Order Comment: Prior to first [employer] Infusion and then every 2 weeks.until results within normal limits. Collect weekly if baseline is abnormal. Performed By: #### L [id number] #### [facility] (DEFAULT) [address] [address] MCV (RBC) [Entitic vol] 85.7 fL Normal 79.6-97.7 [facility] Comment on above: Order Comment: Prior to first [facility] Infusion and then every 2 weeks.until results within normal limits. Collect weekly if baseline is abnormal. Performed By: #### L [id number] #### [facility] (DEFAULT) [address] [address] Mean Cell Hgb 26.9 pg Normal 25.9-33.9 [facility] Comment on above: Order Comment: Prior to first [facility] Infusion and then every 2 weeks.until results within normal limits. Collect weekly if baseline is abnormal. Performed By: #### L [id number] #### [facility] (DEFAULT) [address] [address] Mean Cell Hgb Conc 31.3 g/dL Low 31.4-35.9 [facility] Comment on above: Order Comment: Prior to first [facility] Infusion and then every 2 weeks.until results within normal limits. Collect weekly if baseline is abnormal. Performed By: #### L [id number] #### [facility] (DEFAULT) [address] [address] Monocytes (Bld) [#/Vol] 0.42 10*3/uL Normal 0.22-0.87 [facility] Comment on above: Order Comment: Prior to first [facility] Infusion and then every 2 weeks.until results within normal limits. Collect weekly if baseline is abnormal. Performed By: #### L [id number] #### [facility] (DEFAULT) [address] [address] Monocytes/100 WBC (Bld) 4.5 % Normal [facility] Comment on above: Order Comment: Prior to first [facility] Infusion and then every 2 weeks.until results within normal limits. Collect weekly if baseline is abnormal. Performed By: #### L [id number] #### [facility] (DEFAULT) [address] [address] Nucleated RBC 0.0 /100 WBC Normal <=0.2 [facility] Comment on above: Order Comment: Prior to first [facility] Infusion and then every 2 weeks.until results within normal limits. Collect weekly if baseline is abnormal. Performed By: #### L [id number] #### [facility] (DEFAULT) [address] [address] Platelet mean volume (Bld) [Entitic vol] 9.3 fL Normal 8.5-12.2 [facility] Comment on above: Order Comment: Prior to first [facility] Infusion and then every 2 weeks.until results within normal limits. Collect weekly if baseline is abnormal. Performed By: #### L [id number] #### [facility] (DEFAULT) [address] [address] Platelets (Bld) [#/Vol] 398 10*3/uL High 150-393 [facility] Comment on above: Order Comment: Prior to first [facility] Infusion and then every 2 weeks.until results within normal limits. Collect weekly if baseline is abnormal. Performed By: #### L [id number] #### [facility] (DEFAULT) [address] [address] RBC (Bld) [#/Vol] 3.91 10*6/uL Normal 3.91-5.04 [facility] Comment on above: Order Comment: Prior to first [facility] Infusion and then every 2 weeks.until results within normal limits. Collect weekly if baseline is abnormal. Performed By: #### L [id number] #### [facility] (DEFAULT) [address] [address] RBC Distribution 14.5 % Normal 10.8-14.9 [facility] Comment on above: Order Comment: Prior to first [facility] Infusion and then every 2 weeks.until results within normal limits. Collect weekly if baseline is abnormal. Performed By: #### L [id number] #### [facility] (DEFAULT) [address] [address] Segs + Bands Auto 60.9 % Normal [facility] Comment on above: Order Comment: Prior to first [facility] Infusion and then every 2 weeks.until results within normal limits. Collect weekly if baseline is abnormal. Performed By: #### L [id number] #### [facility] (DEFAULT) [address] [address] Segs + Bands,Absolute Auto 5.63 K/uL Normal 1.64-7.28 [facility] Comment on above: Order Comment: Prior to first [facility] Infusion and then every 2 weeks.until results within normal limits. Collect weekly if baseline is abnormal. Performed By: #### L [id number] #### [facility] (DEFAULT) [address] [address] WBC (Bld) [#/Vol] 9.27 10*3/uL Normal 3.99-11.19 [facility] Comment on above: Order Comment: Prior to first [facility] Infusion and then every 2 weeks.until results within normal limits. Collect weekly if baseline is abnormal. Performed By: #### L [id number] #### [facility] (DEFAULT) [address] [address] B HYDROXYBUTYRATEon 01-15-20 21 B HYDROXYBUTYRATE 0.08 MMOL/L Normal 0.02-0.27 [facility] Comment on above: Performed By: #### C MPF, BHB, ACBC #### Testing performed at [address] [address] CBCon 01-14-2021 ABSOLUTE BAS 0.0 10*3/uL Normal 0.0-0.2 [facility] Comment on above: Performed By: #### C MPF, BHB, ACBC #### Testing performed at [address] [address] ABSOLUTE EOS 0.20 10*3/uL Normal 0.0-0.7 [facility] Comment on above: Performed By: #### C MPF, BHB, ACBC #### Testing performed at [address] [address] ABSOLUTE NEUTROPHIL COUNT 4.9 10*3/uL Normal 1.4-6.5 [facility] Comment on above: Performed By: #### C MPF, BHB, ACBC #### Testing performed at [address] [address] Basophils/100 WBC (Bld) 0.4 % Normal 0.0-2.0 [facility] Comment on above: Performed By: #### C MPF, BHB, ACBC #### Testing performed at [address] [address] DTYPE AUTO DIFF Normal [facility] Comment on above: Performed By: #### C MPF, BHB, ACBC #### Testing performed at [address] [address] Eosinophils/100 WBC (Bld) 2.3 % Normal 0.0-11.0 [facility] Comment on above: Performed By: #### C MPF, BHB, ACBC #### Testing performed at [address] [address] Lymphocytes (Bld) [#/Vol] 2.10 10*3/uL Normal 1.2-3.4 [facility] Comment on above: Performed By: #### C MPF, BHB, ACBC #### Testing performed at [address] [address] Lymphocytes/100 WBC (Bld) 27.2 % Normal 20.0-55.0 [facility] Comment on above: Performed By: #### C MPF, BHB, ACBC #### Testing performed at [address] [address] Monocytes (Bld) [#/Vol] 0.6 10*3/uL Normal 0.0-0.7 [facility] Comment on above: Performed By: #### C MPF, BHB, ACBC #### Testing performed at [address] [address] Monocytes/100 WBC (Bld) 7.5 % Normal 0.0-10.0 [facility] Comment on above: Performed By: #### C MPF, BHB, ACBC #### Testing performed at [address] [place] [address] Neutrophils/100 WBC (Bld) 62.6 % Normal 37.0-75.0 [facility] Comment on above: Performed By: #### C MPF BHB, ACBC #### Testing performed at [address] [address] Erythrocyte distribution width (RBC) [Ratio] 15.6 % High 11.5-14.5 [facility] Comment on above: Performed By: #### C MPF, BHB, ACBC #### Testing performed at [address] [address] Hematocrit (Bld) [Volume fraction] 32.7 % Low 36.0-48.0 [facility] Comment on above: Performed By: #### C MPF BHB, ACBC #### Testing performed at [address] [address] Hemoglobin (Bld) [Mass/Vol] 10.8 g/dL Low 12.0-16.0 [facility] Comment on above: Performed By: #### C MPF, BHB, ACBC #### Testing performed at [address] [address] MCH (RBC) [Entitic mass] 27.3 pg Normal 26.0-35.0 [facility] Comment on above: Performed By: #### C MPF, BHB, ACBC #### Testing performed at [address] [address] MCHC (RBC) [Mass/Vol] 33.1 g/dL Normal 27.0-37.0 [facility] Comment on above: Performed By: #### C MPF, BHB, ACBC #### Testing performed at [address] [address] MCV (RBC) [Entitic vol] 82.5 fL Normal 80.0-100.0 [facility] Comment on above: Performed By: #### C MPF, BHB, ACBC #### Testing performed at [address] [address] Platelet mean volume (Bld) [Entitic vol] 7.1 fL Low 7.4-11.0 [facility] Comment on above: Performed By: #### C MPF, BHB, ACBC #### Testing performed at [address] [address] Platelets (Bld) [#/Vol] 359 10*3/uL Normal 130.0-400.0 [facility] Comment on above: Performed By: #### C MPF, BHB, ACBC #### Testing performed at [address] [address] RBC (Bld) [#/Vol] 3.96 10*6/uL Low 4.0-5.4 [facility] Comment on above: Performed By: #### C MPF, BHB, ACBC #### Testing performed at [address] [address] WBC (Bld) [#/Vol] 7.8 10*3/uL Normal 3.6-11.0 [facility] Comment on above: Performed By: #### C MPF, BHB, ACBC #### Testing performed at [address] [address] CMP FASTINGon 01-14-2021 A:G RATIO 1.0 RATIO Low 1.3-2.2 [facility] Comment on above: Performed By: #### C MPF, BHB, ACBC #### Testing performed at [address] [address] ALBUMIN 3.9 G/dl Normal 3.5-5.0 [facility] Comment on above: Performed By: #### C MPF, BHB, ACBC #### Testing performed at [address] [address] ALP [Catalytic activity/Vol] 117 U/L Normal 38-126 [facility] Comment on above: Performed By: #### C MPF, BHB, ACBC #### Testing performed at [address] [address] ALT [Catalytic activity/Vol] 24 U/L Normal 14-54 [facility] Comment on above: Performed By: #### C MPF, BHB, ACBC #### Testing performed at [address] [address] AST [Catalytic activity/Vol] 22 U/L Normal 15-41 [facility] Comment on above: Performed By: #### C MARQUITA CRUZB, ACBC #### Testing performed at [address] [address] Bilirubin [Mass/Vol] 0.4 mg/dL Normal 0.2-1.2 [facility] Comment on above: Performed By: #### C MPF BHB, ACBC #### Testing performed at [address] [address] Calcium [Mass/Vol] 9.0 mg/dL Normal 8.4-10.2 [facility] Comment on above: Performed By: #### C MARQUITA CRUZB, ACBC #### Testing performed at [address] [address] Chloride [Moles/Vol] 101 mmol/L Normal 98-107 [facility] Comment on above: Performed By: #### C MPMARQUITA GlasgowB, ACBC #### Testing performed at [address] [address] CO2 [Moles/Vol] 23 mmol/L Normal 22-30 [facility] Comment on above: Performed By: #### C MARQUITA CRUZB, ACBC #### Testing performed at [address] [address] Creatinine [Mass/Vol] 1.40 mg/dL High 0.52-1.04 [facility] Comment on above: Performed By: #### C MPF BHB, ACBC #### Testing performed at [address] [address] EST. GFR, 50 ml/min/1.73sq.m [facility] Comment on above: Performed By: #### C MPF BHB, ACBC #### Testing performed at [address] [address] EST. GFR,Non 41 ml/min/1.73sq.m [facility] Comment on above: Performed By: #### C MPF BHB, ACBC #### Testing performed at [address] [address] GFR Information Average GFR for 50-5 9 years old = 93. 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 Kidney failure, GFR = <15. The GFR estimate is not adjusted for extreme body surface area or acute process, nor has it been validated for women or ethnic groups other than and . Performed By: #### C MPF BHB, ACBC #### Testing performed at [address] [address] Glucose [Mass/Vol] 457 mg/dL Critically high 70-100 [facility] Comment on above: Result Comment: NORMAL <100 mg/dL PREDIABETES 101-126 mg/dL DIABETES 126 mg/dL or higher Result called to read back by: Susan WOODY 01/13/2021 @ 22:34 by CHARLES Performed By: #### C MPF BHB, ACBC #### Testing performed at [address] [address] Potassium [Moles/Vol] 4.6 mmol/L Normal 3.5-5.1 [facility] Comment on above: Performed By: #### C ANTHONY BHB, ACBC #### Testing performed at [address] [address] Protein [Mass/Vol] 7.9 g/dL Normal 6.3-8.2 [facility] Comment on above: Performed By: #### C MPF BHB, ACBC #### Testing performed at [address] [address] Sodium [Moles/Vol] 134 mmol/L Low 136-145 [facility] Comment on above: Performed By: #### C MPF BHB, ACBC #### Testing performed at [address] [address] Urea nitrogen [Mass/Vol] 36 mg/dL High 7-20 [facility] Comment on above: Performed By: #### C MPF, BHB, ACBC #### Testing performed at [address] [address] POCT GLUCOSEon 01-14-2021 Glucose [Mass/Vol] 391 mg/dL High 70-100 [facility] [employer] [id number] Normal [facility] Glucose [Mass/Vol] 217 mg/dL High 70-100 [facility] [employer] [id number] Normal [facility] URINE MACROSCOPICon 01-15-20 Bilirubin Ql (U) Negative Normal NEGATIVE [facility] Comment on above: Performed By: #### U MAC, UMIC #### Testing performed at [address] [address] Clarity (U) CLEAR Normal CLEAR [facility] Comment on above: Performed By: #### U MAC, UMIC #### Testing performed at [address] [address] Color (U) YELLOW Normal YELLOW [facility] Comment on above: Performed By: #### U MAC, UMIC #### Testing performed at [address] [address] Glucose Ql (U) 500 mg/dl Abnormal NEGATIVE [facility] Comment on above: Performed By: #### U MAC, UMIC #### Testing performed at [address] [address] pH (U) 6.0 [pH] Normal 5.0-7.0 [facility] Comment on above: Performed By: #### U MAC, UMIC #### Testing performed at [address] [place] [address] URINE HEMOGLOBIN TRACE-INTACT Abnormal NEGATIVE [facility] Comment on above: Performed By: #### U MAC, UMIC #### Testing performed at [address] [place] [address] URINE KETONE Negative Normal NEGATIVE [facility] Comment on above: Performed By: #### U MAC, UMIC #### Testing performed at [address] [address] URINE LEUKOTEST Negative Normal NEGATIVE [facility] Comment on above: Performed By: #### U MAC, UMIC #### Testing performed at [address] [address] URINE NITRATES Negative Normal NEGATIVE [facility] Comment on above: Performed By: #### U MAC, UMIC #### Testing performed at [address] [address] URINE SPEC GRAVITY 1.015 Normal 1.010-1.025 [facility] Comment on above: Performed By: #### U MAC, UMIC #### Testing performed at [address] [address] URINE TOTAL PROTEIN Negative Normal NEGATIVE [facility] Comment on above: Performed By: #### U MAC, UMIC #### Testing performed at [address] [address] Urobilinogen Qn (U) 0.2 {Rikki'U}/dL Normal 0.2-1.0 [facility] Comment on above: Performed By: #### U MAC, UMIC #### [place] [address] URINE MICROSCOPICon 01-15-20 21 Bacteria LM.HPF (Urine sed) [#/Area] Negative Normal NEGATIVE [facility] Comment on above: Performed By: #### U MAC, UMIC #### Testing performed at [address] [address] CASTS NONE Normal NONE [facility] Comment on above: Performed By: #### U MAC, UMIC #### Testing performed at [place] [id number] CRYSTAL NONE Normal NONE [facility] Comment on above: Performed By: #### U MAC, UMIC #### Testing performed at [address] [address] Epithelial cells LM Ql (Urine sed) 1 TO 5 Normal [facility] Comment on above: Performed By: #### U MAC, UMIC #### Testing performed at [address] [address] Mucus Ql (Urine sed) Negative Normal NEGATIVE [facility] Comment on above: Performed By: #### U MAC, UMIC #### Testing performed at [address] [address] URINE COMMENT CULTURE CRITERIA NOT MET, NO CULTURE PERFORMED. Normal [facility] Comment on above: Performed By: #### U MAC, UMIC #### Testing performed at [address] [address] URINE RBC'S Negative Normal NEGATIVE [facility] Comment on above: Performed By: #### U MAC, UMIC #### Testing performed at [address] [address] URINE WBC'S Negative Normal NEGATIVE [facility] Comment on above: Performed By: #### U MAC, UMIC #### Testing performed at [address] [address] BUN CREAon 01-10-2021 Creatinine [Mass/Vol] 1.22 mg/dL High 0.50-1.20 [facility] Comment on above: Order Comment: Prior to first [facility] [facility] and every 2 weeks if baseline CR is within normal limits. Performed By: #### B CR #### [facility] (DEFAULT) [address] [address] EST GFR, 55 mL/min/1.73sqM Low >=60 [facility] Comment on above: Order Comment: Prior to first [employer] Infusion and every 2 weeks if baseline CR is within normal limits. Performed By: #### B CR #### [facility] (DEFAULT) [address] [address] EST GFR,Non 45 mL/min/1.73sqM Low >=60 [facility] Comment on above: Order Comment: Prior to first [employer] Infusion and every 2 weeks if baseline CR is within normal limits. Performed By: #### B CR #### [facility] (DEFAULT) [address] [address] Urea nitrogen [Mass/Vol] 20 mg/dL Normal - [facility] Comment on above: Order Comment: Prior to first [employer] Infusion and every 2 weeks if baseline CR is within normal limits. Performed By: #### B CR #### [facility] (DEFAULT) [address] [address] Urea nitrogen/Creatinine [Mass ratio] 16 mg/mg Normal [facility] Comment on above: Order Comment: Prior to first [employer] Infusion and every 2 weeks if baseline CR is within normal limits. Performed By: #### B CR #### [facility] (DEFAULT) [address] [address] CBC AND ELECTRONIC DIFFon Basophils (Bld) [#/Vol] 10*3/uL Normal 0.00-0.15 [facility] Comment on above: Order Comment: Prior to first [employer] Infusion and then every 2 weeks.until results within normal limits. Collect weekly if baseline is abnormal. Performed By: #### L [id number] #### [facility] (DEFAULT) [address] [address] Basophils/100 WBC (Bld) 0.4 % Normal O [facility] Comment on above: Order Comment: Prior to first [employer] Infusion and then every 2 weeks.until results within normal limits. Collect weekly if baseline is abnormal. Performed By: #### L [id number] #### [facility] (DEFAULT) [address] [address] DIFF STATUS Electronic Differential Normal [facility] Comment on above: Order Comment: Prior to first [employer] Infusion and then every 2 weeks.until results within normal limits. Collect weekly if baseline is abnormal. Performed By: #### L [id number] #### [facility] (DEFAULT) [address] [address] Eosinophils (Bld) [#/Vol] 0.16 10*3/uL Normal 0.00-0.42 [facility] Comment on above: Order Comment: Prior to first [employer] Infusion and then every 2 weeks.until results within normal limits. Collect weekly if baseline is abnormal. Performed By: #### L [id number] #### [facility] (DEFAULT) [address] [address] Eosinophils/100 WBC (Bld) 2.1 % Normal [facility] Comment on above: Order Comment: Prior to first [employer] Infusion and then every 2 weeks.until results within normal limits. Collect weekly if baseline is abnormal. Performed By: #### L [id number] #### [facility] (DEFAULT) [address] [address] Hematocrit (Bld) [Volume fraction] 32.0 % Low 34.9-44.3 [facility] Comment on above: Order Comment: Prior to first [employer] Infusion and then every 2 weeks.until results within normal limits. Collect weekly if baseline is abnormal. Performed By: #### L [id number] #### [facility] (DEFAULT) [address] [address] Hemoglobin (Bld) [Mass/Vol] 10.1 g/dL Low 11.4-15.2 [facility] Comment on above: Order Comment: Prior to first [employer] Infusion and then every 2 weeks.until results within normal limits. Collect weekly if baseline is abnormal. Performed By: #### L [id number] #### [facility] (DEFAULT) [address] [address] Immature Grans % 0.3 % Normal [facility] Comment on above: Order Comment: Prior to first [employer] Infusion and then every 2 weeks.until results within normal limits. Collect weekly if baseline is abnormal. Performed By: #### L [id number] #### [facility] (DEFAULT) [address] [place] [address] Immature Grans Absolute <0.04 Normal <=0.09 [facility] Comment on above: Order Comment: Prior to first [employer] Infusion and then every 2 weeks.until results within normal limits. Collect weekly if baseline is abnormal. Performed By: #### L [id number] #### [facility] (DEFAULT) [address] [address] Lymphocytes (Bld) [#/Vol] 2.23 10*3/uL Normal 1.16-3.51 [facility] Comment on above: Order Comment: Prior to first [employer] Infusion and then every 2 weeks.until results within normal limits. Collect weekly if baseline is abnormal. Performed By: #### L [id number] #### [facility] (DEFAULT) [address] [address] Lymphocytes/100 WBC (Bld) 28.8 % Normal [facility] Comment on above: Order Comment: Prior to first [employer] Infusion and then every 2 weeks.until results within normal limits. Collect weekly if baseline is abnormal. Performed By: #### L [id number] #### [facility] (DEFAULT) [address] [address] MCV (RBC) [Entitic vol] 86.0 fL Normal 79.6-97.7 [facility] Comment on above: Order Comment: Prior to first [employer] Infusion and then every 2 weeks.until results within normal limits. Collect weekly if baseline is abnormal. Performed By: #### L [id number] #### [facility] (DEFAULT) [address] [address] Mean Cell Hgb 27.2 pg Normal 25.9-33.9 [facility] Comment on above: Order Comment: Prior to first [employer] Infusion and then every 2 weeks.until results within normal limits. Collect weekly if baseline is abnormal. Performed By: #### L [id number] #### [facility] (DEFAULT) [address] [address] Mean Cell Hgb Conc 31.6 g/dL Normal 31.4-35.9 [facility] Comment on above: Order Comment: Prior to first [employer] Infusion and then every 2 weeks.until results within normal limits. Collect weekly if baseline is abnormal. Performed By: #### L [id number] #### [facility] (DEFAULT) [address] [address] Monocytes (Bld) [#/Vol] 0.38 10*3/uL Normal 0.22-0.87 [facility] Comment on above: Order Comment: Prior to first [employer] Infusion and then every 2 weeks.until results within normal limits. Collect weekly if baseline is abnormal. Performed By: #### L [id number] #### [facility] (DEFAULT) [address] [address] Monocytes/100 WBC (Bld) 4.9 % Normal [facility] Comment on above: Order Comment: Prior to first [employer] Infusion and then every 2 weeks.until results within normal limits. Collect weekly if baseline is abnormal. Performed By: #### L [id number] #### [facility] (DEFAULT) [address] [address] Nucleated RBC 0.0 /100 WBC Normal <=0.2 [facility] Comment on above: Order Comment: Prior to first [employer] Infusion and then every 2 weeks.until results within normal limits. Collect weekly if baseline is abnormal. Performed By: #### L [id number] #### [facility] (DEFAULT) [address] [address] Platelet mean volume (Bld) [Entitic vol] 9.4 fL Normal 8.5-12.2 [facility] Comment on above: Order Comment: Prior to first [employer] Infusion and then every 2 weeks.until results within normal limits. Collect weekly if baseline is abnormal. Performed By: #### L [id number] #### [facility] (DEFAULT) [address] [address] Platelets (Bld) [#/Vol] 352 10*3/uL Normal 150-393 [facility] Comment on above: Order Comment: Prior to first [employer] Infusion and then every 2 weeks.until results within normal limits. Collect weekly if baseline is abnormal. Performed By: #### L [id number] #### [facility] (DEFAULT) [address] [address] RBC (Bld) [#/Vol] 3.72 10*6/uL Low 3.91-5.04 [facility] Comment on above: Order Comment: Prior to first [employer] Infusion and then every 2 weeks.until results within normal limits. Collect weekly if baseline is abnormal. Performed By: #### L [id number] #### [facility] (DEFAULT) [address] [address] RBC Distribution 15.3 % High 10.8-14.9 [facility] Comment on above: Order Comment: Prior to first [employer] Infusion and then every 2 weeks.until results within normal limits. Collect weekly if baseline is abnormal. Performed By: #### L [id number] #### [facility] (DEFAULT) [address] [address] Segs + Bands Auto 63.5 % Normal [facility] Comment on above: Order Comment: Prior to first [employer] Infusion and then every 2 weeks.until results within normal limits. Collect weekly if baseline is abnormal. Performed By: #### L [id number] #### [facility] (DEFAULT) [address] [address] Segs + Bands,Absolute Auto 4.93 K/uL Normal 1.64-7.28 [facility] Comment on above: Order Comment: Prior to first [employer] Infusion and then every 2 weeks.until results within normal limits. Collect weekly if baseline is abnormal. Performed By: #### L [id number] #### [facility] (DEFAULT) [address] [address] WBC (Bld) [#/Vol] 7.75 10*3/uL Normal 3.99-11.19 [facility] Comment on above: Order Comment: Prior to first [employer] Infusion and then every 2 weeks.until results within normal limits. Collect weekly if baseline is abnormal. Performed By: #### L [id number] #### [facility] (DEFAULT) [address] [address] BUN CREAon 12-27-2020 Creatinine [Mass/Vol] 1.10 mg/dL Normal 0.50-1.20 [facility] Comment on above: Order Comment: Prior to first [employer] Infusion and every 2 weeks if baseline CR is within normal limits. Performed By: #### B CR #### [facility] (DEFAULT) [address] [address] EST GFR, >=60 Normal >=60 [facility] Comment on above: Order Comment: Prior to first [employer] Infusion and every 2 weeks if baseline CR is within normal limits. Performed By: #### B CR #### [facility] (DEFAULT) [address] [place] [address] EST GFR,Non 51 mL/min/1.73sqM Low >=60 [facility] Comment on above: Order Comment: Prior to first [employer] Infusion and every 2 weeks if baseline CR is within normal limits. Performed By: #### B CR #### [facility] (DEFAULT) [address] [place] [address] Urea nitrogen [Mass/Vol] 26 mg/dL High 7- [facility] Comment on above: Order Comment: Prior to first [employer] Infusion and every 2 weeks if baseline CR is within normal limits. Performed By: #### B CR #### [facility] (DEFAULT) [address] [address] Urea nitrogen/Creatinine [Mass ratio] 24 mg/mg Normal [facility] Comment on above: Order Comment: Prior to first [employer] Infusion and every 2 weeks if baseline CR is within normal limits. Performed By: #### B CR #### [facility] (DEFAULT) [address] [address] CBC AND ELECTRONIC DIFFon Basophils (Bld) [#/Vol] 10*3/uL Normal 0.00-0.15 [facility] Comment on above: Order Comment: Prior to first [employer] Infusion and every 2 weeks if baseline CR is within normal limits. Performed By: #### B CR #### [facility] (DEFAULT) [address] [address] Basophils/100 WBC (Bld) 0.3 % Normal [facility] Comment on above: Order Comment: Prior to first [employer] Infusion and every 2 weeks if baseline CR is within normal limits. Performed By: #### B CR #### [facility] (DEFAULT) [address] [address] DIFF STATUS Electronic Differential Normal [facility] Comment on above: Order Comment: Prior to first [employer] Infusion and every 2 weeks if baseline CR is within normal limits. Performed By: #### B CR #### [facility] (DEFAULT) [address] [address] Eosinophils (Bld) [#/Vol] 0.20 10*3/uL Normal 0.00-0.42 [facility] Comment on above: Order Comment: Prior to first [employer] Infusion and every 2 weeks if baseline CR is within normal limits. Performed By: #### B CR #### [facility] (DEFAULT) [address] [address] Eosinophils/100 WBC (Bld) 2.0 % Normal [facility] Comment on above: Order Comment: Prior to first [employer] Infusion and every 2 weeks if baseline CR is within normal limits. Performed By: #### B CR #### [facility] (DEFAULT) [address] [address] Hematocrit (Bld) [Volume fraction] 31.0 % Low 34.9-44.3 [facility] Comment on above: Order Comment: Prior to first [employer] Infusion and every 2 weeks if baseline CR is within normal limits. Performed By: #### B CR #### [facility] (DEFAULT) [address] [address] Hemoglobin (Bld) [Mass/Vol] 10.0 g/dL Low 11.4-15.2 [facility] Comment on above: Order Comment: Prior to first [employer] Infusion and every 2 weeks if baseline CR is within normal limits. Performed By: #### B CR #### [facility] (DEFAULT) [address] [address] Immature Grans % 0.2 % Normal [facility] Comment on above: Order Comment: Prior to first [employer] Infusion and every 2 weeks if baseline CR is within normal limits. Performed By: #### B CR #### [facility] (DEFAULT) [address] [address] Immature Grans Absolute <0.04 Normal <=0.09 [facility] Comment on above: Order Comment: Prior to first [employer] Infusion and every 2 weeks if baseline CR is within normal limits. Performed By: #### B CR #### [facility] (DEFAULT) [address] [address] Lymphocytes (Bld) [#/Vol] 2.96 10*3/uL Normal 1.16-3.51 [facility] Comment on above: Order Comment: Prior to first [employer] Infusion and every 2 weeks if baseline CR is within normal limits. Performed By: #### B CR #### [facility] (DEFAULT) [address] [place] [address] Lymphocytes/100 WBC (Bld) 29.9 % Normal [facility] Comment on above: Order Comment: Prior to first [employer] Infusion and every 2 weeks if baseline CR is within normal limits. Performed By: #### B CR #### [facility] (DEFAULT) [address] [address] MCV (RBC) [Entitic vol] 84.9 fL Normal 79.6-97.7 [facility] Comment on above: Order Comment: Prior to first [employer] Infusion and every 2 weeks if baseline CR is within normal limits. Performed By: #### B CR #### [facility] (DEFAULT) [address] [address] Mean Cell Hgb 27.4 pg Normal 25.9-33.9 [facility] Comment on above: Order Comment: Prior to first [employer] Infusion and every 2 weeks if baseline CR is within normal limits. Performed By: #### B CR #### [facility] (DEFAULT) [address] [address] Mean Cell Hgb Conc 32.3 g/dL Normal 31.4-35.9 [facility] Comment on above: Order Comment: Prior to first [employer] Infusion and every 2 weeks if baseline CR is within normal limits. Performed By: #### B CR #### [facility] (DEFAULT) [address] [address] Monocytes (Bld) [#/Vol] 0.50 10*3/uL Normal 0.22-0.87 [facility] Comment on above: Order Comment: Prior to first [employer] Infusion and every 2 weeks if baseline CR is within normal limits. Performed By: #### B CR #### [facility] (DEFAULT) [address] [address] Monocytes/100 WBC (Bld) 5.1 % Normal [facility] Comment on above: Order Comment: Prior to first [employer] Infusion and every 2 weeks if baseline CR is within normal limits. Performed By: #### B CR #### [facility] (DEFAULT) [address] [address] Nucleated RBC 0.0 /100 WBC Normal <=0.2 [facility] Comment on above: Order Comment: Prior to first [employer] Infusion and every 2 weeks if baseline CR is within normal limits. Performed By: #### B CR #### [facility] (DEFAULT) [address] [address] Platelet mean volume (Bld) [Entitic vol] 9.2 fL Normal 8.5-12.2 [facility] Comment on above: Order Comment: Prior to first [employer] Infusion and every 2 weeks if baseline CR is within normal limits. Performed By: #### B CR #### [facility] (DEFAULT) [address] [address] Platelets (Bld) [#/Vol] 372 10*3/uL Normal 150-393 [facility] Comment on above: Order Comment: Prior to first [employer] Infusion and every 2 weeks if baseline CR is within normal limits. Performed By: #### B CR #### [facility] (DEFAULT) [address] [address] RBC (Bld) [#/Vol] 3.65 10*6/uL Low 3.91-5.04 [facility] Comment on above: Order Comment: Prior to first [employer] Infusion and every 2 weeks if baseline CR is within normal limits. Performed By: #### B CR #### [facility] (DEFAULT) [address] [address] RBC Distribution 14.7 % Normal 10.8-14.9 [facility] Comment on above: Order Comment: Prior to first [employer] Infusion and every 2 weeks if baseline CR is within normal limits. Performed By: #### B CR #### [facility] (DEFAULT) [address] [address] Segs + Bands Auto 62.5 % Normal [facility] Comment on above: Order Comment: Prior to first [employer] Infusion and every 2 weeks if baseline CR is within normal limits. Performed By: #### B CR #### [facility] (DEFAULT) [address] [address] Segs + Bands,Absolute Auto 6.18 K/uL Normal 1.64-7.28 [facility] Comment on above: Order Comment: Prior to first [employer] Infusion and every 2 weeks if baseline CR is within normal limits. Performed By: #### B CR #### [facility] (DEFAULT) [address] [address] WBC (Bld) [#/Vol] 9.89 10*3/uL Normal 3.99-11.19 [facility] Comment on above: Order Comment: Prior to first [employer] Infusion and every 2 weeks if baseline CR is within normal limits. Performed By: #### B CR #### [facility] (DEFAULT) [address] [address] OCT/HRT MAC[place]A OUon 12-28-19 21 OCT/HRT [facility] OU Right Eye Quality was good. Findings include subretinal fluid. Interval change is better. Recommendation for management is to continue treatment. Left Eye Quality was good. Findings include subretinal fluid. Interval change is better. Recommendation for management is to continue treatment. Normal [facility] Apply dressingon 12-19-2020 Applied dressing [facility] th Apply dressingOrdered By: St ester Aguirre on 12-19-2020 [facility] BUN CREAon 12-13-2020 Creatinine [Mass/Vol] 0.99 mg/dL Normal 0.50-1.20 [facility] Comment on above: Order Comment: Prior to first [employer] Infusion and every 2 weeks if baseline CR is within normal limits. Performed By: #### B CR #### [facility] (DEFAULT) [address] [address] EST GFR, >=60 Normal >=60 [facility] Comment on above: Order Comment: Prior to first [employer] Infusion and every 2 weeks if baseline CR is within normal limits. Performed By: #### B CR #### [facility] (DEFAULT) 410 [address] [address] EST GFR,Non 58 mL/min/1.73sqM Low >=60 [facility] Comment on above: Order Comment: Prior to first [facility] and every 2 weeks if baseline CR is within normal limits. Performed By: #### B CR #### [facility] (DEFAULT) [address] [address] Urea nitrogen [Mass/Vol] 25 mg/dL High 7-22 [facility] Comment on above: Order Comment: Prior to first [facility] and every 2 weeks if baseline CR is within normal limits. Performed By: #### B CR #### [facility] (DEFAULT) [address] [address] Urea nitrogen/Creatinine [Mass ratio] 25 mg/mg Normal [facility] Comment on above: Order Comment: Prior to first [facility] and every 2 weeks if baseline CR is within normal limits. Performed By: #### B CR #### [facility] (DEFAULT) [address] [address] CBC AND ELECTRONIC DIFFon Basophils (Bld) [#/Vol] 0.04 10*3/uL Normal 0.00-0.15 [facility] Comment on above: Order Comment: Prior to first [facility] and every 2 weeks if baseline CR is within normal limits. Performed By: #### B CR #### [facility] (DEFAULT) [address] [address] Basophils/100 WBC (Bld) 0.4 % Normal O [facility] Comment on above: Order Comment: Prior to first [facility] and every 2 weeks if baseline CR is within normal limits. Performed By: #### B CR #### [facility] (DEFAULT) [address] [place] [address] DIFF STATUS Electronic Differential Normal [facility] Comment on above: Order Comment: Prior to first [facility] and every 2 weeks if baseline CR is within normal limits. Performed By: #### B CR #### [facility] (DEFAULT) [address] [place] [address] Eosinophils (Bld) [#/Vol] 0.13 10*3/uL Normal 0.00-0.42 [facility] Comment on above: Order Comment: Prior to first [facility] and every 2 weeks if baseline CR is within normal limits. Performed By: #### B CR #### [facility] (DEFAULT) [address] [place] [address] Eosinophils/100 WBC (Bld) 1.4 % Normal [facility] Comment on above: Order Comment: Prior to first [facility] and every 2 weeks if baseline CR is within normal limits. Performed By: #### B CR #### [facility] (DEFAULT) [address] [place] [address] Hematocrit (Bld) [Volume fraction] 33.6 % Low 34.9-44.3 [facility] Comment on above: Order Comment: Prior to first [facility] and every 2 weeks if baseline CR is within normal limits. Performed By: #### B CR #### [facility] (DEFAULT) [address] [place] [address] Hemoglobin (Bld) [Mass/Vol] 10.6 g/dL Low 11.4-15.2 [facility] Comment on above: Order Comment: Prior to first [facility] and every 2 weeks if baseline CR is within normal limits. Performed By: #### B CR #### [facility] (DEFAULT) [address] [address] Immature Grans % 0.2 % Normal [facility] Comment on above: Order Comment: Prior to first [facility] and every 2 weeks if baseline CR is within normal limits. Performed By: #### B CR #### [facility] (DEFAULT) [address] [address] Immature Grans Absolute <0.04 Normal <=0.09 O [facility] Comment on above: Order Comment: Prior to first [facility] and every 2 weeks if baseline CR is within normal limits. Performed By: #### B CR #### [facility] (DEFAULT) [address] [address] Lymphocytes (Bld) [#/Vol] 2.53 10*3/uL Normal 1.16-3.51 [facility] Comment on above: Order Comment: Prior to first [facility] and every 2 weeks if baseline CR is within normal limits. Performed By: #### B CR #### [facility] (DEFAULT) [address] [address] Lymphocytes/100 WBC (Bld) 27.2 % Normal [facility] Comment on above: Order Comment: Prior to first [facility] and every 2 weeks if baseline CR is within normal limits. Performed By: #### B CR #### [facility] (DEFAULT) [address] [address] MCV (RBC) [Entitic vol] 86.4 fL Normal 79.6-97.7 O [facility] Comment on above: Order Comment: Prior to first [facility] and every 2 weeks if baseline CR is within normal limits. Performed By: #### B CR #### [facility] (DEFAULT) [address] [address] Mean Cell Hgb 27.2 pg Normal 25.9-33.9 [facility] Comment on above: Order Comment: Prior to first [facility] and every 2 weeks if baseline CR is within normal limits. Performed By: #### B CR #### [facility] (DEFAULT) [address] [address] Mean Cell Hgb Conc 31.5 g/dL Normal 31.4-35.9 [facility] Comment on above: Order Comment: Prior to first [facility] and every 2 weeks if baseline CR is within normal limits. Performed By: #### B CR #### [facility] (DEFAULT) [address] [address] Monocytes (Bld) [#/Vol] 0.60 10*3/uL Normal 0.22-0.87 [facility] Comment on above: Order Comment: Prior to first [facility] and every 2 weeks if baseline CR is within normal limits. Performed By: #### B CR #### [facility] (DEFAULT) [address] [address] Monocytes/100 WBC (Bld) 6.4 % Normal O [facility] Comment on above: Order Comment: Prior to first [facility] and every 2 weeks if baseline CR is within normal limits. Performed By: #### B CR #### [facility] (DEFAULT) [address] [address] Nucleated RBC 0.0 /100 WBC Normal <=0.2 [facility] Comment on above: Order Comment: Prior to first [facility] and every 2 weeks if baseline CR is within normal limits. Performed By: #### B CR #### [facility] (DEFAULT) [address] [address] Platelet mean volume (Bld) [Entitic vol] 9.5 fL Normal 8.5-12.2 [facility] Comment on above: Order Comment: Prior to first [facility] and every 2 weeks if baseline CR is within normal limits. Performed By: #### B CR #### [facility] (DEFAULT) [address] [address] Platelets (Bld) [#/Vol] 365 10*3/uL Normal 150-393 [facility] Comment on above: Order Comment: Prior to first [facility] and every 2 weeks if baseline CR is within normal limits. Performed By: #### B CR #### [facility] (DEFAULT) [address] [address] RBC (Bld) [#/Vol] 3.89 10*6/uL Low 3.91-5.04 [facility] Comment on above: Order Comment: Prior to first [facility] and every 2 weeks if baseline CR is within normal limits. Performed By: #### B CR #### [facility] (DEFAULT) [address] [address] RBC Distribution 14.5 % Normal 10.8-14.9 [facility] Comment on above: Order Comment: Prior to first [facility] and every 2 weeks if baseline CR is within normal limits. Performed By: #### B CR #### [facility] (DEFAULT) [address] [address] Segs + Bands Auto 64.4 % Normal [facility] Comment on above: Order Comment: Prior to first [facility] and every 2 weeks if baseline CR is within normal limits. Performed By: #### B CR #### [facility] (DEFAULT) [address] [address] Segs + Bands,Absolute Auto 5.99 K/uL Normal 1.64-7.28 [facility] Comment on above: Order Comment: Prior to first [facility] and every 2 weeks if baseline CR is within normal limits. Performed By: #### B CR #### [facility] (DEFAULT) [address] [address] WBC (Bld) [#/Vol] 9.31 10*3/uL Normal 3.99-11.19 [facility] Comment on above: Order Comment: Prior to first [facility] and every 2 weeks if baseline CR is within normal limits. Performed By: #### B CR #### [facility] (DEFAULT) [address] [address] ESR Westergren method (Bld) [Velocity]Ordered By: Terence Martinez on 10-17-2020 ESR (Bld) [Velocity] 64 mm/h [facility] [place] Interpretation and review of laboratory results Abnormal [facility] OCT OPTIC NERVE OUon 021 [facility] Radiology Study observation (narrative) [facility] BUN CREAon 10-03-2020 Creatinine [Mass/Vol] 1.13 mg/dL 0.50 - 1.20 mg/dL [facility] GFR/1.73 sq M.predicted MDRD (S/P/Bld) [Vol rate/Area] 50 mL/min/{1.73_m2} Low >=60 mL/min/1.73 sqM [facility] GFR/1.73 sq M.predicted MDRD (S/P/Bld) [Vol rate/Area] mL/min/{1.73_m2} >=60 mL/min/1.73 sqM [facility] Interpretation and review of laboratory results Abnormal [facility] Urea nitrogen [Mass/Vol] 20 mg/dL 7 - 22 mg/dL [facility] Urea nitrogen/Creatinine [Mass ratio] 18 mg/mg [facility] CBC AND ELECTRONIC DIFFon Basophils (Bld) [#/Vol] 10*3/uL 0.00 - 0.15 K/uL [facility] Basophils/100 WBC (Bld) 0.3 % O [facility] DIFF STATUS Electronic Differential [facility] Eosinophils (Bld) [#/Vol] 0.16 10*3/uL 0.00 - 0.42 K/uL [facility] Eosinophils/100 WBC (Bld) 2.1 % [facility] Erythrocyte distribution width (RBC) [Ratio] 14.0 % 10.8 - 14.9 % [facility] Hematocrit (Bld) [Volume fraction] 33.7 % Low 34.9 - 44.3 % [facility] Hemoglobin (Bld) [Mass/Vol] 10.3 g/dL Low 11.4 - 15.2 g/dL [facility] Immature granulocytes (Bld) [#/Vol] 10*3/uL <=0.09 K/uL [facility] Immature granulocytes/100 WBC (Bld) 0.3 % [facility] Interpretation and review of laboratory results Abnormal [facility] Lymphocytes (Bld) [#/Vol] 2.21 10*3/uL 1.16 - 3.51 K/uL [facility] Lymphocytes/100 WBC (Bld) 29.3 % [facility] MCH (RBC) [Entitic mass] 27.5 pg 25.9 - 33.9 pg [facility] MCHC (RBC) [Mass/Vol] 30.6 g/dL Low 31.4 - 35.9 g/dL [facility] MCV (RBC) [Entitic vol] 90.1 fL 79.6 - 97.7 fL [facility] Monocytes (Bld) [#/Vol] 0.46 10*3/uL 0.22 - 0.87 K/uL [facility] Monocytes/100 WBC (Bld) 6.1 % [facility] Neutrophils (Bld) [#/Vol] 4.66 10*3/uL 1.64 - 7.28 K/uL [facility] Nucleated RBC/100 WBC (Bld) [Ratio] 0.0 % <=0.2 /100 WBC [facility] Platelet mean volume (Bld) [Entitic vol] 9.5 fL 8.5 - 12.2 fL [facility] Platelets (Bld) [#/Vol] 357 10*3/uL 150 - 393 K/uL [facility] RBC (Bld) [#/Vol] 3.74 10*6/uL Low [facility] Segmented neutrophils/100 WBC (Bld) 61.9 % [facility] WBC (Bld) [#/Vol] 7.53 10*3/uL 3.99 - 11.19 K/uL [facility] XR MYELOMA SURVEYon 08-10-20 21 IMPRESSION: No [...] AP Chest: No obvious displaced rib fracture. [facility] Ira Gonzalez MD - 09/26/2020 EXAM: XR [...] No discrete lytic lesions or pathologic fractures. [facility] Radiology Study observation (narrative) [facility] XR MYELOMA SURVEYOrdered By: Ira Gonzalez on 09-26-2020 [facility] Work Phone: BUN CREAon 09-21-2020 Creatinine [Mass/Vol] 1.19 mg/dL 0.50 - 1.20 mg/dL [facility] GFR/1.73 sq M.predicted MDRD (S/P/Bld) [Vol rate/Area] 47 mL/min/{1.73_m2} Low >=60 mL/min/1.73 sqM [facility] GFR/1.73 sq M.predicted MDRD (S/P/Bld) [Vol rate/Area] 57 mL/min/{1.73_m2} Low >=60 mL/min/1.73 sqM [facility] Interpretation and review of laboratory results Abnormal [facility] Urea nitrogen [Mass/Vol] 26 mg/dL High 7 - 22 mg/dL [facility] Urea nitrogen/Creatinine [Mass ratio] 22 mg/mg [facility] CBC AND ELECTRONIC DIFFon Basophils (Bld) [#/Vol] 0.05 10*3/uL 0.00 - 0.15 K/uL [facility] Basophils/100 WBC (Bld) 0.6 % O [facility] DIFF STATUS Electronic Differential [facility] Eosinophils (Bld) [#/Vol] 0.24 10*3/uL 0.00 - 0.42 K/uL [facility] Eosinophils/100 WBC (Bld) 2.8 % [facility] Erythrocyte distribution width (RBC) [Ratio] 13.9 % 10.8 - 14.9 % [facility] Hematocrit (Bld) [Volume fraction] 33.5 % Low 34.9 - 44.3 % [facility] Hemoglobin (Bld) [Mass/Vol] 10.7 g/dL Low 11.4 - 15.2 g/dL [facility] Immature granulocytes (Bld) [#/Vol] 10*3/uL <=0.09 K/uL [facility] Immature granulocytes/100 WBC (Bld) 0.2 % [facility] Interpretation and review of laboratory results Abnormal [facility] Lymphocytes (Bld) [#/Vol] 2.63 10*3/uL 1.16 - 3.51 K/uL [facility] Lymphocytes/100 WBC (Bld) 30.6 % [facility] MCH (RBC) [Entitic mass] 28.1 pg 25.9 - 33.9 pg [facility] MCHC (RBC) [Mass/Vol] 31.9 g/dL 31.4 - 35.9 g/dL [facility] MCV (RBC) [Entitic vol] 87.9 fL 79.6 - 97.7 fL [facility] Monocytes (Bld) [#/Vol] 0.50 10*3/uL 0.22 - 0.87 K/uL [facility] Monocytes/100 WBC (Bld) 5.8 % [facility] Neutrophils (Bld) [#/Vol] 5.15 10*3/uL 1.64 - 7.28 K/uL [facility] Nucleated RBC/100 WBC (Bld) [Ratio] 0.0 % <=0.2 /100 WBC [facility] Platelet mean volume (Bld) [Entitic vol] 9.2 fL 8.5 - 12.2 fL [facility] Platelets (Bld) [#/Vol] 377 10*3/uL 150 - 393 K/uL [facility] RBC (Bld) [#/Vol] 3.81 10*6/uL Low [facility] Segmented neutrophils/100 WBC (Bld) 60.0 % [facility] WBC (Bld) [#/Vol] 8.59 10*3/uL 3.99 - 11.19 K/uL [facility] CBC(NO DIFF)on 09-01-2020 Erythrocyte distribution width (RBC) [Ratio] 15.0 % High 11.5-14.5 [facility] Comment on above: Performed By: #### H EMOG, CMPF, LIP2, RTSH, T42 #### [place] [address] Hematocrit (Bld) [Volume fraction] 39.9 % Normal 36.0-48.0 [facility] Comment on above: Performed By: #### H EMOG, CMPF, LIP2, RTSH, T42 #### [place] [address] Hemoglobin (Bld) [Mass/Vol] 13.3 g/dL Normal 12.0-16.0 [facility] Comment on above: Performed By: #### H EMOG, CMPF, LIP2, RTSH, T42 #### [place] [address] MCH (RBC) [Entitic mass] 28.3 pg Normal 26.0-35.0 [facility] Comment on above: Performed By: #### H EMOG, CMPF, LIP2, RTSH, T42 #### [place] [address] MCHC (RBC) [Mass/Vol] 33.4 g/dL Normal 27.0-37.0 [facility] Comment on above: Performed By: #### H EMOG, CMPF, LIP2, RTSH, T42 #### [place] [address] MCV (RBC) [Entitic vol] 84.7 fL Normal 80.0-100.0 A [facility] Comment on above: Performed By: #### H EMOG, CMPF, LIP2, RTSH, T42 #### [place] [address] Platelet mean volume (Bld) [Entitic vol] 6.9 fL Low 7.4-11.0 [facility] Comment on above: Result Comment: Test ing performed at [place] [address] Performed By: #### H EMOG, CMPF, LIP2, RTSH, T42 #### [place] [address] Platelets (Bld) [#/Vol] 275 10*3/uL Normal 130.0-400.0 [facility] Comment on above: Performed By: #### H EMOG, CMPF, LIP2, RTSH, T42 #### [place] [address] RBC (Bld) [#/Vol] 4.72 10*6/uL Normal 4.0-5.4 [facility] Comment on above: Performed By: #### H EMOG, CMPF, LIP2, RTSH, T42 #### [place] [address] WBC (Bld) [#/Vol] 6.7 10*3/uL Normal 3.6-11.0 [facility] Comment on above: Performed By: #### H EMOG, CMPF, LIP2, RTSH, T42 #### [place] [address] CMP FASTINGon 09-01-2020 A:G RATIO 1.2 RATIO Low 1.3-2.2 [facility] Comment on above: Performed By: #### H EMOG, CMPF, LIP2, RTSH, T42 #### [place] [address] ALBUMIN 4.1 G/dl Normal 3.5-5.0 [facility] Comment on above: Performed By: #### H EMOG, CMPF, LIP2, RTSH, T42 #### Testing performed at [place] [id number] ALP [Catalytic activity/Vol] 103 U/L Normal 38-126 [facility] Comment on above: Performed By: #### H EMOG, CMPF, LIP2, RTSH, T42 #### Testing performed at [place] [id number] ALT [Catalytic activity/Vol] 17 U/L Normal <35 [facility] Comment on above: Performed By: #### H EMOG, CMPF, LIP2, RTSH, T42 #### Testing performed at [place] [id number] AST [Catalytic activity/Vol] 23 U/L Normal 14-36 [facility] Comment on above: Performed By: #### H EMOG, CMPF, LIP2, RTSH, T42 #### Testing performed at [address] [address] Bilirubin [Mass/Vol] 0.1 mg/dL Low 0.2-1.3 [facility] Comment on above: Performed By: #### H EMOG, CMPF, LIP2, RTSH, T42 #### Testing performed at [place] [id number] Calcium [Mass/Vol] 9.2 mg/dL Normal 8.4-10.2 [facility] Comment on above: Performed By: #### H EMOG, CMPF, LIP2, RTSH, T42 #### Testing performed at [address] [address] Chloride [Moles/Vol] 108 mmol/L High 98-107 [facility] Comment on above: Result Comment: Vasyl hickman note: Triglyceride levels of 600mg/dL or higher may positively bias chloride results by approximately 2.1 mmol Performed By: #### H EMOG, CMPF, LIP2, RTSH, T42 #### [place] [address] CO2 [Moles/Vol] 23 mmol/L Normal 22-30 [facility] Comment on above: Performed By: #### H EMOG, CMPF, LIP2, RTSH, T42 #### [place] [address] Creatinine [Mass/Vol] 1.00 mg/dL Normal 0.7-1.2 [facility] Comment on above: Performed By: #### H EMOG, CMPF, LIP2, RTSH, T42 #### [place] [address] EST. GFR, >60 Normal [facility] Comment on above: Performed By: #### H EMOG, CMPF, LIP2, RTSH, T42 #### [place] [address] EST. GFR,Non >60 Normal [facility] Comment on above: Performed By: #### H EMOG, CMPF, LIP2, RTSH, T42 #### [place] [address] GFR Information Average GFR for 50-5 9 years old = 93. 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 Kidney failure, GFR = <15. The GFR estimate is not adjusted for extreme body surface area or acute process, nor has it been validated for women or ethnic groups other than and . Testing performed at [place] [address] Performed By: #### H EMOG, CMPF, LIP2, RTSH, T42 #### [place] [address] Glucose [Mass/Vol] 193 mg/dL High 70-100 [facility] Comment on above: Result Comment: NORMAL <100 mg/dL PREDIABETES 101-126 mg/dL DIABETES 126 mg/dL or higher Performed By: #### H EMOG, CMPF, LIP2, RTSH, T42 #### Testing performed at [place] [id number] Potassium [Moles/Vol] 5.4 mmol/L High 3.5-5.1 [facility] Comment on above: Performed By: #### H EMOG, CMPF, LIP2, RTSH, T42 #### [place] [address] Protein [Mass/Vol] 7.4 g/dL Normal 6.3-8.2 [facility] Comment on above: Performed By: #### H EMOG, CMPF, LIP2, RTSH, T42 #### [place] [address] Sodium [Moles/Vol] 140 mmol/L Normal 137-145 [facility] Comment on above: Performed By: #### H EMOG, CMPF, LIP2, RTSH, T42 #### [place] [address] Urea nitrogen [Mass/Vol] 19 mg/dL Normal 7-20 [facility] Comment on above: Performed By: #### H EMOG, CMPF, LIP2, RTSH, T42 #### [place] [address] FREE T4on 09-01-2020 Free T4 [Mass/Vol] 1.01 ng/dL Normal 0.78-2.19 [facility] Comment on above: Result Comment: Test ing performed at [place] [address] Performed By: #### H EMOG, CMPF, LIP2, RTSH, T42 #### [place] [address] HEMOGLOBIN A1Con 09-01-2020 Glucose [Mass/Vol] 232 mg/dL Normal [facility] Comment on above: Result Comment: Test ing performed at [place] [address] Performed By: #### H A1CT #### [place] [address] HbA1c (Bld) [Mass fraction] 9.7 % High 0-6 [facility] Comment on above: Result Comment: NORMAL <5.7% PREDIABETES 5.7-6.4% DIABETES 6.5% OR HIGHER Performed By: #### H A1CT #### Testing performed at [address] [address] LIPID PROFILEon 09-01-2020 Cholesterol [Mass/Vol] 232 mg/dL High 107-217 [facility] Comment on above: Performed By: #### H EMOG, CMPF, LIP2, RTSH, T42 #### Testing performed at [address] [address] Cholesterol in HDL [Mass/Vol] 51 mg/dL Normal 33-75 [facility] Comment on above: Performed By: #### H EMOG, CMPF, LIP2, RTSH, T42 #### Testing performed at [address] [address] Cholesterol in LDL [Mass/Vol] 154 mg/dL Normal [facility] Comment on above: Performed By: #### H EMOG, CMPF, LIP2, RTSH, T42 #### Testing performed at [address] [address] Cholesterol in VLDL [Mass/Vol] 27 mg/dL High 5.0-25 [facility] Comment on above: Performed By: #### H EMOG, CMPF, LIP2, RTSH, T42 #### Testing performed at [address] [address] Cholesterol.total/Erika sterol in HDL [Mass ratio] 4.55 {ratio} Normal [facility] Comment on above: Result Comment: RISK TOTAL/HDL RATIO MEN WOMEN 1/2 AVERAGE 3.43 3.27 AVERAGE 4.97 4.44 2X AVERAGE 9.55 7.05 3X AVERAGE 23.99 11.04 Testing performed at [place], [place] [address] Performed By: #### H EMOG, CMPF, LIP2, RTSH, T42 #### Testing performed at [address] [address] Triglyceride [Mass/Vol] 133 mg/dL Normal 0-150 [facility] Comment on above: Performed By: #### H EMOG, CMPF, LIP2, RTSH, T42 #### [place] [address] MALB/CREAT RATIO,URINEon MALB/CREAT RATIO,URINE 30.9 mg MALB/g CREAT High 1.3 -30.0 [facility] Comment on above: Result Comment: Test ing performed at [place] [address] Performed By: #### M CRAT #### [place] [address] MICROALBUMIN,RANDOM URINE 23.6 mg/L High 0-16.7 [facility] Comment on above: Performed By: #### M CRAT #### [place] [address] URINE CREATININE RANDOM 76.3 MG/DL Normal [facility] Comment on above: Result Comment: NO N ORMAL VALUES ESTABLISHED FOR RANDOM SPECIMENS Performed By: #### M CRAT #### [place] [address] TSH,REFLEX FREE T4on 021 TSH,REFLEX FREE T4 6.890 uIU/ML High 0.46-4.68 [facility] Comment on above: Result Comment: Test ing performed at [place] [address] Performed By: #### H EMOG, CMPF, LIP2, RTSH, T42 #### [place] [address] CMP FASTINGon 05-15-2020 A:G RATIO 1.2 RATIO Low 1.3-2.2 [facility] Comment on above: Performed By: #### H EMOG, CMPF, LIP2, RTSH, T42 #### [place] [address] ALBUMIN 4.1 G/dl Normal 3.5-5.0 [facility] Comment on above: Performed By: #### H EMOG, CMPF, LIP2, RTSH, T42 #### Testing performed at [address] [address] ALP [Catalytic activity/Vol] 103 U/L Normal 38-126 [facility] Comment on above: Performed By: #### H EMOG, CMPF, LIP2, RTSH, T42 #### Testing performed at [address] [address] ALT [Catalytic activity/Vol] 15 U/L Normal <35 [facility] Comment on above: Performed By: #### H EMOG, CMPF, LIP2, RTSH, T42 #### Testing performed at [place] [id number] AST [Catalytic activity/Vol] 42 U/L High 14-36 [facility] Comment on above: Performed By: #### H EMOG, CMPF, LIP2, RTSH, T42 #### Testing performed at [address] [address] Bilirubin [Mass/Vol] 0.2 mg/dL Normal 0.2-1.3 [facility] Comment on above: Performed By: #### H EMOG, CMPF, LIP2, RTSH, T42 #### Testing performed at [place] [id number] Calcium [Mass/Vol] 9.3 mg/dL Normal 8.4-10.2 [facility] Comment on above: Performed By: #### H EMOG, CMPF, LIP2, RTSH, T42 #### Testing performed at [address] [address] Chloride [Moles/Vol] 111 mmol/L High 98-107 [facility] Comment on above: Result Comment: Vasyl hickman note: Triglyceride levels of 600mg/dL or higher may positively bias chloride results by approximately 2.1 mmol Performed By: #### H EMOG, CMPF, LIP2, RTSH, T42 #### Testing performed at [place] [id number] CO2 [Moles/Vol] 17 mmol/L Critically low 22-30 [facility] Comment on above: Result Comment: CALL ED TO AND READ BACK BY DAVE CHATTERJEE AT 1115 ON 05.15.2020 Performed By: #### H EMOG, CMPF, LIP2, RTSH, T42 #### [place] [address] Creatinine [Mass/Vol] 1.10 mg/dL Normal 0.7-1.2 [facility] Comment on above: Performed By: #### H EMOG, CMPF, LIP2, RTSH, T42 #### [place] [address] EST. GFR, >60 Normal [facility] Comment on above: Performed By: #### H EMOG, CMPF, LIP2, RTSH, T42 #### [place] [address] EST. GFR,Non 54 ml/min/1.73sq.m [facility] Comment on above: Performed By: #### H EMOG, CMPF, LIP2, RTSH, T42 #### [place] [address] GFR Information Average GFR for 50-5 9 years old = 93. 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 Kidney failure, GFR = <15. The GFR estimate is not adjusted for extreme body surface area or acute process, nor has it been validated for women or ethnic groups other than and . Testing performed at [place] [address] Performed By: #### H EMOG, CMPF, LIP2, RTSH, T42 #### [place] [address] Glucose [Mass/Vol] 190 mg/dL High 70-100 [facility] Comment on above: Result Comment: NORMAL <100 mg/dL PREDIABETES 101-126 mg/dL DIABETES 126 mg/dL or higher Performed By: #### H EMOG, CMPF, LIP2, RTSH, T42 #### [place] [address] Potassium [Moles/Vol] 3.7 mmol/L Normal 3.5-5.1 [facility] Comment on above: Performed By: #### H EMOG, CMPF, LIP2, RTSH, T42 #### [place] [address] Protein [Mass/Vol] 7.6 g/dL Normal 6.3-8.2 [facility] Comment on above: Performed By: #### H EMOG, CMPF, LIP2, RTSH, T42 #### [place] [address] Sodium [Moles/Vol] 138 mmol/L Normal 137-145 [facility] Comment on above: Performed By: #### H EMOG, CMPF, LIP2, RTSH, T42 #### [place] [address] Urea nitrogen [Mass/Vol] 24 mg/dL High 7-20 [facility] Comment on above: Performed By: #### H EMOG, CMPF, LIP2, RTSH, T42 #### [place] [address] HEMOGLOBIN A1Con 05-15-2020 Glucose [Mass/Vol] 240 mg/dL Normal [facility] Comment on above: Result Comment: Test ing performed at [place] [address] Performed By: #### H EMOG, CMPF, LIP2, RTSH, T42 #### [place] [address] HbA1c (Bld) [Mass fraction] 10.0 % High 0-6 [facility] Comment on above: Result Comment: NORMAL <5.7% PREDIABETES 5.7-6.4% DIABETES 6.5% OR HIGHER Performed By: #### H EMOG, CMPF, LIP2, RTSH, T42 #### [place] [address] LIPID PROFILEon 05-15-2020 Cholesterol [Mass/Vol] 228 mg/dL High 107-217 [facility] Comment on above: Performed By: #### H EMOG, CMPF, LIP2, RTSH, T42 #### Testing performed at [address] [address] Cholesterol in HDL [Mass/Vol] 36 mg/dL Normal 33-75 [facility] Comment on above: Performed By: #### H EMOG, CMPF, LIP2, RTSH, T42 #### Testing performed at [address] [address] Cholesterol in LDL [Mass/Vol] 161 mg/dL Normal [facility] Comment on above: Performed By: #### H EMOG, CMPF, LIP2, RTSH, T42 #### Testing performed at [address] [address] Cholesterol in VLDL [Mass/Vol] 31 mg/dL High 5.0-25 [facility] Comment on above: Performed By: #### H EMOG, CMPF, LIP2, RTSH, T42 #### Testing performed at [address] [address] Cholesterol.total/Erika sterol in HDL [Mass ratio] 6.33 {ratio} Normal [facility] Comment on above: Result Comment: RISK TOTAL/HDL RATIO MEN WOMEN 1/2 AVERAGE 3.43 3.27 AVERAGE 4.97 4.44 2X AVERAGE 9.55 7.05 3X AVERAGE 23.99 11.04 Testing performed at [place], [place] [address] Performed By: #### H EMOG, CMPF, LIP2, RTSH, T42 #### Testing performed at [address] [address] Triglyceride [Mass/Vol] 157 mg/dL High 0-150 [facility] Comment on above: Performed By: #### H EMOG, CMPF, LIP2, RTSH, T42 #### Testing performed at [address] [address] MALB/CREAT RATIO,URINEon MALB/CREAT RATIO,URINE 18.8 mg MALB/g CREAT Normal 1.3 -30.0 [facility] Comment on above: Result Comment: Test ing performed at [place] [id number] Performed By: #### M CRAT #### [place] [address] MICROALBUMIN,RANDOM URINE 9.3 mg/L Normal 0-16.7 [facility] Comment on above: Performed By: #### M CRAT #### Testing performed at [facility] [address] [place] [address] URINE CREATININE RANDOM 49.4 MG/DL Normal [facility] Comment on above: Result Comment: NO N ORMAL VALUES ESTABLISHED FOR RANDOM SPECIMENS Performed By: #### M CRAT #### Testing performed at [place] [id number] XR RIBS LT PA Boby 0 XR [...] by: LUIS ANDRES Date: 2020-01-27 13:26 Normal [facility] XR FINGER MIN 2 VIEWSon 11 XR [...] by: LUIS ANDRES Date: 2019-12-22 10:13 Normal [facility] BLOOD UREA NITROGENon 2019 Urea nitrogen [Mass/Vol] 16 mg/dL Normal 09-05 [facility] CREATININE,SERUMon 0 Creatinine [Mass/Vol] Average GFR for 50 -59 years old = 93. Normal [facility] Comment on above: Result Comment: Demolition Engineer garfield Kidney disease, GFR = <60. Kidney failure, GFR = <15. The GFR estimate is not adjusted for extreme body surface area or acute process, nor has it been validated for women or ethnic groups other than and . Creatinine [Mass/Vol] mg/dL Normal [facility] Creatinine [Mass/Vol] 52 ml/min/1.73sq.m [facility] Creatinine [Mass/Vol] 1.14 mg/dL Normal 0.7-1.2 [facility] FAX REQUESTon 03-08-2019 FAX TO Normal [facility] [place] BLOOD UREA NITROGENon 2019 Urea nitrogen [Mass/Vol] 23 mg/dL High - [facility] CREATININE,SERUMon 0 Creatinine [Mass/Vol] 38 ml/min/1.73sq.m [facility] Creatinine [Mass/Vol] 47 ml/min/1.73sq.m [facility] Creatinine [Mass/Vol] Average GFR for 50 -59 years old = 93. Normal [facility] Comment on above: Result Comment: Demolition Engineer [place] Kidney disease, GFR = <60. Kidney failure, GFR = <15. The GFR estimate is not adjusted for extreme body surface area or acute process, nor has it been validated for women or ethnic groups other than and . Creatinine [Mass/Vol] 1.49 mg/dL High 0.7-1.2 [facility] FAX REQUESTon 03-01-2019 FAX TO [facility] US DUPLEX EXTREMITY DVT LEFT on 01-29-2019 [...] 2.1 cm and may be reactive. Normal [facility] Culture,Bacterialon 01-06-20 18 Culture,Bacterial Test Name: Culture,Bacterial [...] 10 F Vancomycin S 1 F Normal [facility] Comment on above: Performed By: #### C ULT ####Unless otherwise noted, all testing performed by [facility] [place], [place] [phone]: [id number] Director: Adilson Niño M.D. Progress Noteon 12-16-2017 Protein mass conc [facility] [address] [place] [address] NAME MEG GEORGES [facility] [id number] 1965 DATE PROGRESS NOTE Meg is seen [...] to use it. MARK MARQUEZ 12/16/2017 11:25 [id number] T 12/16/2017 15:16 ЕКАТЕРИНА/BETSY Electronically Signed By Pili Gilliam DPM on 17 Dec 2017 19:19:18 GMT Normal [facility] Culture,Bacterialon 12-03-19 18 Culture,Bacterial Test Name: Culture,Bacterial Site: LEFT FOOT Culture Status: Final Culture Report: Normal Rob Gram Stain: No WBC's No Squamous Epithelial Cells No Organisms Seen Micro Source: Wound drainage Normal [facility] Comment on above: Performed By: #### C ULT ####Unless otherwise noted, all testing performed by [facility] [place] [address] [address], [place] [phone]: [id number] Director: Adilson Niño M.D. MRI LOWER EXT JOINT W/O CONT on 11-25-2017 MRI LOWER EXT JOINT W/O CONT Final Report Accession No: [id number] Performed: Nov 25 2017 8:32AM Examination: [...] NICHOLS M.D. Trans: n/a : cc: Normal [facility] Culture,Bacterialon 11-04-19 18 Culture,Bacterial Test Name: Culture,Bacterial [...] 1 F Trimeth/Sulfa S <= 20 F [facility] Comment on above: Performed By: #### C ULT ####Unless otherwise noted, all testing performed by [facility] [employer] [facility], [place] [phone]: [id number] Director: Adilson Niño M.D. Progress Noteon 08-29-2017 Protein mass conc [facility] [address] [place] [address] NAME MEG GEORGES [facility] [id number] 1965 DATE 08/29/2017 PROGRESS NOTE Ms. Georges [...] [facility]. MARK MILLER 08/29/2017 18:22 [id number] T 08/30/2017 08:46 KMCynthia/MODL Electronically Signed By Joanne Garvin Dpm on 05 Sep 2017 23:32:42 GMT Normal [facility] Culture,Bacterialon 08-15-19 18 Culture,Bacterial Test Name: Culture,Bacterial Site: Left 1st MPJ ulcer/ celluli Culture Status: Final Culture Report: No Growth - Day 2 Gram Stain: Rare WBC's Few RBC's No Organisms Seen Micro Source: Wound Normal [facility] Comment on above: Performed By: #### C ULT #### Unless otherwise noted, all testing performed by [facility] [address] [facility]. [place] [address] CLIA: [id number] Tire Servicer: Adilson Niño M.D. Progress Noteon 06-13-2017 Protein mass conc [facility] [address] [place] [address] NAME MEG GEORGES [facility] [id number] 1965 DATE 06/13/2017 PROGRESS NOTE SUBJECTIVE Ms. [...] understanding. JOANNE GARVIN DPM D 06/13/2017 10:44 [id number] T 06/13/2017 11:35 KM/MODL Electronically Signed By Joanne Garvin Dpm on 19 Jun 2017 14:55:04 GMT Normal [facility] Consultationon 06-07-2017 Consultation [facility] [address] [place] [address] NAME MEG GEORGES [facility] [id number] 1965 DATE 04/11/2017 CONSULTATION PROJECT MANAGEMENT DIRECTOR MARTHA YAN DPM REFERRING PHYSICIAN: Neri Santa [...] any complications arise. MARK ELMORE 04/11/2017 16:16 [id number] T 04/11/2017 20:46 RCI/MODL cc: Neri Santa DO Electronically Signed By Martha Yan DPM on 16 Apr 2017 22:59:57 GMT Normal [facility] Protein mass conc [facility] [address] [place] [address] NAME MEG GEORGES [facility] [id number] 1965 DATE 06/06/2017 PROGRESS NOTE PROGRESS NOTE [...] any complications arise. MARK ELMORE 06/06/2017 22:10 [id number] T 06/07/2017 08:57 RCI/MODL Electronically Signed By Martha Yan DPM on 10 Jun 2017 00:05:11 GMT Normal [facility] CBC with Diffon 06-04-2017 Basophils #/vol (Bld) 0.0 K/mcL Normal 0-0.2 [facility] Comment on above: Performed By: #### C BCDIF, CMET, EDCTNI #### Unless otherwise noted, [place] [address] CLIA: [id number] T[employer] Servicer: Adilson Niño M.D. Basophils/100 WBC (Bld) 0.5 % Normal [facility] Comment on above: Performed By: #### C BCDIF, CMET, EDCTNI #### Unless otherwise noted, all [place] [address] CLIA: [id number] T[employer] Servicer: Adilson Niño M.D. Eosinophils #/vol (Bld) 0.2 K/mcL Normal 0-0.5 [facility] Comment on above: Performed By: #### C BCDIF, CMET, EDCTNI #### Unless otherwise noted, all [place] [address] CLIA: [id number] T[employer] Servicer: Adilson Niño M.D. Eosinophils/100 WBC (Bld) 2.5 % Normal [facility] Comment on above: Performed By: #### C BCDIF, CMET, EDCTNI #### Unless otherwise noted, all [place] [address] CLIA: [id number] T[employer] Servicer: Adilson Niño M.D. Erythrocyte distribution width Ratio (RBC) 13.3 % Normal 10-14.4 [facility] Comment on above: Performed By: #### C BCDIF, CMET, EDCTNI #### Unless otherwise noted, all [place] [address] CLIA: [id number] T[employer] Servicer: Adilson Niño M.D. Hematocrit Volume Fraction (Bld) 39.7 % Normal 34.4-44.8 [facility] Comment on above: Performed By: #### C BCDIF, CMET, EDCTNI #### Unless otherwise noted, all [place] [address] CLIA: [id number] T[employer] Servicer: Adilson Niño M.D. Hemoglobin mass conc (Bld) 13.3 g/dL Normal 11.6-15.4 [facility] Comment on above: Performed By: #### C BCDIF, CMET, EDCTNI #### Unless otherwise noted, all [place] [address] CLIA: [id number] T[employer] Servicer: Adilson Niño M.D. Lymphocytes #/vol (Bld) 4.0 K/mcL High 1.0-3.7 [facility] Comment on above: Performed By: #### C BCDIF, CMET, EDCTNI #### Unless otherwise noted, all [place] [address] CLIA: [id number] Tire Servicer: Adilson Niño M.D. Lymphocytes/100 WBC (Bld) 42.6 % Normal [facility] Comment on above: Performed By: #### C BCDIF, CMET, EDCTNI #### Unless otherwise noted, all [place] [address] CLIA: [id number] T[employer] Servicer: Adilson Niño M.D. MCH Entitic mass (RBC) 30.1 pg Normal 27.9-33.9 [facility] Comment on above: Performed By: #### C BCDIF, CMET, EDCTNI #### Unless otherwise noted, all [place] [address] CLIA: [id number] Tire Servicer: Adilson Niño M.D. MCHC mass conc (RBC) 33.6 g/dL Normal 33.1-35.1 [facility] Comment on above: Performed By: #### C BCDIF, CMET, EDCTNI #### Unless otherwise noted, all testing performed by [address] CLIA: [id number] Tire Servicer: Adilson Niño M.D. MCV Entitic volume (RBC) 89.7 fL Normal 82.6-98.9 [facility] Comment on above: Performed By: #### C BCDIF, CMET, EDCTNI #### Unless otherwise noted, all [place] [address] CLIA: [id number] T[employer] Servicer: Adilson Niño M.D. Monocytes #/vol (Bld) 0.6 K/mcL Normal 0.1-0.6 [facility] Comment on above: Performed By: #### C BCDIF, CMET, EDCTNI #### Unless otherwise noted, all [place] [address] CLIA: [id number] T[employer] Servicer: Adilson Niño M.D. Monocytes/100 WBC (Bld) 5.9 % Normal [facility] Comment on above: Performed By: #### C BCDIF, CMET, EDCTNI #### Unless otherwise noted, all [place] [address] CLIA: [id number] T[employer] Servicer: Adilson Niño M.D. Neutrophils #/vol (Bld) 4.6 K/mcL Normal 1.2-6.9 [facility] Comment on above: Performed By: #### C BCDIF, CMET, EDCTNI #### Unless otherwise noted, all [place] [address] CLIA: [id number] T[employer] Servicer: Adilson Niño M.D. Platelet mean volume Entitic volume (Bld) 6.9 fL Low 7.0-10.6 [facility] Comment on above: Performed By: #### C BCDIF, CMET, EDCTNI #### Unless otherwise noted, all [place] [address] CLIA: [id number] T[employer] Servicer: Adilson Niño M.D. Platelets #/vol (Bld) 377 K/mcL Normal 162-402 [facility] Comment on above: Performed By: #### C BCDIF, CMET, EDCTNI #### Unless otherwise noted, all [place] [address] CLIA: [id number] T[employer] Servicer: Adilson Niño M.D. RBC #/vol (Bld) 4.42 M/mcL Normal 3.7-5.0 [facility] Comment on above: Performed By: #### C BCDIF, CMET, EDCTNI #### Unless otherwise noted, all [place] [address] CLIA: [id number] T[employer] Servicer: Adilson Niño M.D. Segmented Neut % 48.5 % Normal [facility] Comment on above: Performed By: #### C BCDIF, CMET, EDCTNI #### Unless otherwise noted, all [place] [address] CLIA: [id number] T[employer] Servicer: Adilsno Niño M.D. WBC #/vol (Bld) 9.5 K/mcL Normal 3.4-10.6 [facility] Comment on above: Performed By: #### C BCDIF, CMET, EDCTNI #### Unless otherwise noted, all [place] [address] CLIA: [id number] T[employer] Servicer: Adilson Niño M.D. Comprehensive Metabolic Pane cheryl 06-04-2017 Albumin mass conc 3.8 g/dL Normal 3.2-5.2 [facility] Comment on above: Performed By: #### C BCDIF, CMET, EDCTNI #### Unless otherwise noted, all testing performed by [address] CLIA: [id number] T[employer] Servicer: Adilson Niño M.D. ALP enzyme act/vol 128 U/L Normal 40-150 [facility] Comment on above: Performed By: #### C BCDIF, CMET, EDCTNI #### Unless otherwise noted, all testing performed by [address] CLIA: [id number] Tire Servicer: Adilson Niño M.D. ALT enzyme act/vol 43 U/L Normal 14-65 [facility] Comment on above: Result Comment: This test result might be falsely depressed or falsely elevated on samples drawn from patients taking Sulfasalazine and Sulfapyridine. Venipuncture should occur prior to taking either of these drugs. Performed By: #### C BCDIF, CMET, EDCTNI #### Unless otherwise noted, all testing performed by [place] [address] CLIA: [id number] T[employer] Servicer: Adilson Niño M.D. AST enzyme act/vol 20 U/L Normal 0-45 [facility] Comment on above: Result Comment: This test result might be falsely depressed or falsely elevated on samples drawn from patients taking Sulfasalazine and Sulfapyridine. Venipuncture should occur prior to taking either of these drugs. Performed By: #### C BCDIF, CMET, EDCTNI #### Unless otherwise noted, all testing performed by [address] CLIA: [id number] T[employer] Servicer: Adilson Niño M.D. Bilirubin mass conc 0.3 mg/dL Normal 0.3-1.2 [facility] Comment on above: Performed By: #### C BCDIF, CMET, EDCTNI #### Unless otherwise noted, all [place] [address] CLIA: [id number] T[employer] Servicer: Adilson Niño M.D. Calcium mass conc 9.4 mg/dL Normal 8.4-10.2 [facility] Comment on above: Performed By: #### C BCDIF, CMET, EDCTNI #### Unless otherwise noted, all [place] [address] CLIA: [id number] T[employer] Servicer: Adilson Niño M.D. Chloride molar conc 100 mmol/L Normal 98-108 [facility] Comment on above: Performed By: #### C BCDIF, CMET, EDCTNI #### Unless otherwise noted, all [place] [address] CLIA: [id number] T[employer] Servicer: Adilson Niño M.D. CO2 molar conc 26 mmol/L Normal 21-32 [facility] Comment on above: Performed By: #### C BCDIF, CMET, EDCTNI #### Unless otherwise noted, all [place] [address] CLIA: [id number] T[employer] Servicer: Adilson Niño M.D. Creatinine mass conc 1.10 mg/dL Normal 0.40-1.10 [facility] Comment on above: Performed By: #### C BCDIF, CMET, EDCTNI #### Unless otherwise noted, all [place] [address] CLIA: [id number] T[employer] Servicer: Adilson Niño M.D. GFR/1.73 sq M predicted among blacks MDRD vol rate/area (S/P/Bld) mL/min/{1.73_m2} Normal [facility] Comment on above: Result Comment: Afri can Panamanian GFR Calc Performed By: #### C BCDIF, CMET, EDCTNI #### Unless otherwise noted, all [place] [address] CLIA: [id number] Tire Servicer: Adilson Niño M.D. GFR/1.73 sq M predicted among non-blacks MDRD vol rate/area (S/P/Bld) 52 mL/min/{1.73_m2} Low >60 [facility] Comment on above: Result Comment: Non- GFR [...] Unless otherwise noted, all [place] [address] CLIA: [id number] T[employer] Servicer: Adilson Niño M.D. Glucose mass conc 244 mg/dL High 70-99 [facility] Comment on above: Result Comment: This test result might be falsely depressed or falsely elevated on samples drawn from patients taking Sulfasalazine and Sulfapyridine. Venipuncture should occur prior to taking either of these drugs. Performed By: #### C BCDIF, CMET, EDCTNI #### Unless otherwise noted, all [place] [address] CLIA: [id number] T[employer] Servicer: Adilson Niño M.D. Potassium molar conc 4.2 mmol/L Normal 3.5-5.1 [facility] Comment on above: Performed By: #### C BCDIF, CMET, EDCTNI #### Unless otherwise noted, all [place] [address] CLIA: [id number] T[employer] Servicer: Adilson Niño M.D. Protein mass conc 7.8 g/dL Normal 6.0-8.0 [facility] Comment on above: Performed By: #### C BCDIF, CMET, EDCTNI #### Unless otherwise noted, all testing performed by [address] CLIA: [id number] Tire Servicer: Adilson Niño M.D. Sodium molar conc 135 mmol/L Normal 135-145 [facility] Comment on above: Performed By: #### C BCDIF, CMET, EDCTNI #### Unless otherwise noted, all [place] [address] CLIA: [id number] T[employer] Servicer: Adilson Niño M.D. Urea nitrogen mass conc 15 mg/dL Normal 8-25 [facility] Comment on above: Performed By: #### C BCDIF, CMET, EDCTNI #### Unless otherwise noted, all [place] [address] CLIA: [id number] T[employer] Servicer: Adilson Niño M.D. ED Cardiac Troponin-Ion - Troponin I.cardiac mass conc ng/mL Normal < 45 [facility] Comment on above: Result Comment: Elev ation [...] Unless otherwise noted, all testing performed by [address] [address] CLIA: [id number] Tire Servicer: Adilson Niño M.D. RIBS UNILATERALon 06-04-2017 RIBS UNILATERAL Final Report Accession No: [id number] Performed: Jun 04 2017 9:56PM Examination: [...] TANNER M.D. Trans: istumb : cc: Normal [facility] Culture,Bacterialon 04-23-19 18 Culture,Bacterial Test Name: Culture,Bacterial [...] F Vancomycin S <= 0.5 F Normal [facility] Comment on above: Performed By: #### C ULT #### Unless otherwise noted, all testing performed by [place] [address] CLIA: [id number] Tire Servicer: Adilson Niño M.D. Progress Noteon 04-22-2017 [place] [address] NAME MEG GEORGES [id number] 1965 DATE PROGRESS NOTE Meg seen today [...] in a week. MARK MARQUEZ 04/22/2017 12:51 [id number] T 04/22/2017 16:19 BJDaya/RICAL Electronically Signed By Pili Gilliam DPM on 23 Apr 2017 17:35:14 GMT Normal [facility] Culture,Bacterialon 04-19-19 18 Culture,Bacterial Test Name: Culture,Bacterial [...] 10 F Vancomycin S 1 F Normal [facility] Comment on above: Performed By: #### C ULT #### Unless otherwise noted, all testing performed by [address] [place], [place] [address] CLIA: [id number] Tire Servicer: Adilson Niño M.D. Vital Signs Date Time Vital Sign Value Performing Clinician Alejandro douglas 08-10-2021 20:30-0400 Diastolic blood pressure 88 mm[Hg] Anthony Lucero DO Work Phone: [facility] Accertify 08-10-2021 20:30-0400 Heart rate 88 /min Anthony Lucero DO Work Phone: [facility] [employer] 08-10-2021 20:30-0400 Respiratory rate 18 /min Anthony Lucero DO Work Phone: [facility] [employer] 08-10-2021 20:30-0400 SaO2% (BldA) [Mass fraction] 100 % Anthony Lucero DO Work Phone: [facility] [employer] 08-10-2021 20:30-0400 Systolic blood pressure 144 mm[Hg] Anthony Lucero DO Work Phone: [facility] [employer] 08-10-2021 18:00-0400 Body temperature 100 [degF] Anthony Lucero DO Work Phone: [facility] [employer] 08-10-2021 13:33-0400 Body height 165.1 cm Anthony Lucero DO Work Phone: [facility] [employer] 08-08-2021 06:00-0400 Body mass index (BMI) [Ratio] 21.72 kg/m2 Anthony Lucero DO Work Phone: [facility] [employer] 08-08-2021 06:00-0400 Body weight 59.2 kg Anthony Lucero DO Work Phone: [facility] [employer] 07-14-2021 14:00-0400 Diastolic blood pressure 79 mm[Hg] Anthony Villarreal MD Work Phone: [facility] [employer] 07-14-2021 14:00-0400 Heart rate 100 /min Anthony Villarreal MD Work Phone: [facility] [employer] 07-14-2021 14:00-0400 SaO2% (BldA) [Mass fraction] 94 % Anthony Villarreal MD Work Phone: [facility] [employer] 07-14-2021 14:00-0400 Systolic blood pressure 143 mm[Hg] Anthony Villarreal MD Work Phone[facility] 07-14-2021 11:15-0400 Respiratory rate 16 /min Anthony Villarreal MD Work Phone[facility] 07-13-2021 20:37-0400 Body height 165.1 cm Anthony Villarreal MD Work Phone[facility] 07-13-2021 20:37-0400 Body mass index (BMI) [Ratio] 23.3 kg/m2 Anthony Villarreal MD Work Phone: [facility] 07-13-2021 20:37-0400 Body weight 63.5 kg Anthony Villarreal MD Work Phone: [facility] 07-13-2021 20:20-0400 Body temperature 97.5 [degF] Anthony Villarreal MD Work Phone[facility] 07-10-2021 10:55-0400 Body temperature 97.81 [degF] Wil Martinez MD Work Phone: [facility] 07-10-2021 10:55-0400 Diastolic blood pressure 54 mm[Hg] Wil Martinez MD Work Phone: [facility] 07-10-2021 10:55-0400 Heart rate 88 /min Wil Martinez MD Work Phone[facility] 07-10-2021 10:55-0400 Respiratory rate 14 /min Wil Martinez MD Work Phone[facility] 07-10-2021 10:55-0400 SaO2% (BldA) [Mass fraction] 98 % Wil Martinez MD Work Phone: [facility] 07-10-2021 10:55-0400 Systolic blood pressure 102 mm[Hg] Wil Martinez MD Work Phone: [facility] 07-10-2021 06:00-0400 Body mass index (BMI) [Ratio] 26.91 kg/m2 Wil Martinez MD Work Phone: [facility] 07-10-2021 06:00-0400 Body weight 73.35 kg Wil Martinez MD Work Phone[facility] 07-05-2021 15:43-0400 Body height 165.1 cm Wil Martinez MD Work Phone: [facility] 06-28-2021 09:45-0400 Diastolic blood pressure 85 mm[Hg] Chris Boothe MD Work Phone: [employer] 06-28-2021 09:45-0400 Heart rate 106 /min Chris Boothe MD Work Phone: [employer] 06-28-2021 09:45-0400 Respiratory rate 25 /min Chris Boothe MD Work Phone: [employer] 06-28-2021 09:45-0400 SaO2% (BldA) [Mass fraction] 98 % Chris Boothe MD Work Phone: [employer] 06-28-2021 09:45-0400 Systolic blood pressure 180 mm[Hg] Chris Boothe MD Work Phone: [employer] 06-28-2021 07:41-0400 Body mass index (BMI) [Ratio] 24.13 kg/m2 Chris Boothe MD Work Phone: [employer] 06-28-2021 07:41-0400 Body weight 65.77 kg Chris Boothe MD Work Phone: [employer] 06-28-2021 03:49-0400 Body temperature 97.9 [degF] Chris Boothe MD Work Phone: [employer] 05-11-2021 15:31-0400 Diastolic blood pressure 63 mm[Hg] [facility] 05-11-2021 15:31-0400 Heart rate 84 /min [facility] 05-11-2021 15:31-0400 Respiratory rate 16 /min [facility]-4 [facility] 05-11-2021 15:31-0400 Systolic blood pressure 132 mm[Hg] [facility] 05-11-2021 13:31-0400 Body temperature 97.2 [degF] [address] 05-01-2021 14:36-0400 Body mass index (BMI) [Ratio] 25.81 kg/m2 Tia Baugh PA-C Work Phone: [facility] 05-01-2021 14:36-0400 Body temperature 98.29 [degF] Tia Baugh PA-C Work Phone: [facility] 05-01-2021 14:36-0400 Body weight 70.35 kg Tia Baugh PA-C Work Phone: [facility] 05-01-2021 14:36-0400 Diastolic blood pressure 88 mm[Hg] Tia Baugh PA-C Work Phone: [facility] 05-01-2021 14:36-0400 Heart rate 77 /min Tia Baugh PA-C Work Phone: [facility] 05-01-2021 14:36-0400 Respiratory rate 16 /min Tia Baugh PA-C Work Phone: [facility] 05-01-2021 14:36-0400 SaO2% (BldA) [Mass fraction] 97 % Tia Baugh PA-C Work Phone: [facility] 05-01-2021 14:36-0400 Systolic blood pressure 137 mm[Hg] Tia Baugh PA-C Work Phone: [facility] 04-17-2021 11:06-0500 Diastolic blood pressure 79 mm[Hg] Jef Sierra Jr., DPM Work Phone: [facility] 04-17-2021 11:06-0500 Heart rate 99 /min Jef Mariela Jr., DPM Work Phone: [facility] 04-17-2021 11:06-0500 Systolic blood pressure 123 mm[Hg] Jef Mariela Jr., DPM Work Phone: [facility] 04-17-2021 10:49-0500 Body temperature 98.2 [degF] Jef Mariela Jr., DPM Work Phone: [facility] 03-27-2021 11:06-0500 Body temperature 97.9 [degF] Jef Mariela Jr., DPM Work Phone: [facility] 03-27-2021 11:06-0500 Diastolic blood pressure 88 mm[Hg] Jef Mariela Jr., DPM Work Phone: [facility] 03-27-2021 11:06-0500 Heart rate 89 /min Jef Mariela Jr., DPM Work Phone: [facility] 03-27-2021 11:06-0500 Systolic blood pressure 146 mm[Hg] Jef Mariela Jr., DPM Work Phone: [facility] 02-20-2021 09:55-0500 Diastolic blood pressure 85 mm[Hg] Jef Mariela Jr., DPM Work Phone: [facility] 02-20-2021 09:55-0500 Heart rate 89 /min Jef Mariela Jr., DPM Work Phone: [facility] 02-20-2021 09:55-0500 Systolic blood pressure 154 mm[Hg] Jef Mariela Jr., DPM Work Phone: [facility] 02-20-2021 09:52-0500 Body temperature 97.59 [degF] Jef Mariela Jr., DPM Work Phone: [facility] 2021 11:17-0500 Body temperature 97.7 [degF] Jef Mariela Jr., DPM Work Phone: [facility] 2021 11:17-0500 Diastolic blood pressure 80 mm[Hg] Jef Mariela Jr., DPM Work Phone: [facility] 2021 11:17-0500 Heart rate 96 /min Jef Mariela Jr., DPM Work Phone: [facility] 2021 11:17-0500 Systolic blood pressure 157 mm[Hg] Jef Mariela Jr., DPM Work Phone: [facility] 01-30-2021 10:31-0500 Body temperature 98.4 [degF] Jef Mariela Jr., DPM Work Phone: [facility] 01-30-2021 10:31-0500 Diastolic blood pressure 81 mm[Hg] Jef Mariela Jr., DPM Work Phone: [facility] 01-30-2021 10:31-0500 Heart rate 98 /min Jef Mariela Jr., DPM Work Phone: [facility] 01-30-2021 10:31-0500 Systolic blood pressure 156 mm[Hg] Jef Mariela Jr., DPM Work Phone: [facility] 01-24-2021 15:58-0500 Body temperature 97.7 [degF] Jef Mariela Jr., DPM Work Phone: [facility] 01-24-2021 15:58-0500 Diastolic blood pressure 80 mm[Hg] Jef Mariela Jr., DPM Work Phone: [facility] 01-24-2021 15:58-0500 Heart rate 101 /min Jef Mariela Jr., DPM Work Phone: [facility] 01-24-2021 15:58-0500 Systolic blood pressure 163 mm[Hg] Jef Mariela Jr., DPM Work Phone: [facility] 01-16-2021 10:58-0500 Body temperature 97.7 [degF] Jef Mariela Jr., DPM Work Phone: [facility] 01-16-2021 10:58-0500 Diastolic blood pressure 83 mm[Hg] Jef Mariela Jr., DPM Work Phone: [facility] 01-16-2021 10:58-0500 Heart rate 102 /min Jef Mariela Jr., DPM Work Phone: [facility] 01-16-2021 10:58-0500 Systolic blood pressure 143 mm[Hg] Jef Mariela Jr., DPM Work Phone: [facility] 01-09-2021 08:43-0500 Body temperature 97.2 [degF] Jef Mariela Jr., DPM Work Phone: [facility] 01-09-2021 08:43-0500 Diastolic blood pressure 81 mm[Hg] Jef Mariela Jr., DPM Work Phone: [facility] 01-09-2021 08:43-0500 Heart rate 99 /min Jef Mariela Jr., DPM Work Phone: [facility] 01-09-2021 08:43-0500 Systolic blood pressure 156 mm[Hg] Jef Mariela Jr., DPM Work Phone: [facility] 01-02-2021 09:09-0500 Body temperature 97.7 [degF] Jef Mariela Jr., DPM Work Phone: [facility] 01-02-2021 09:09-0500 Diastolic blood pressure 85 mm[Hg] Jef Mariela Jr., DPM Work Phone: [facility] 01-02-2021 09:09-0500 Heart rate 83 /min Jef Mariela Jr., DPM Work Phone: [facility] 01-02-2021 09:09-0500 Systolic blood pressure 149 mm[Hg] Jef Mariela Jr., DPM Work Phone: [facility] 12-19-2020 11:17-0400 Body height 165.1 cm Jef Mariela Jr., DPM Work Phone: [facility] 12-19-2020 11:17-0400 Body mass index (BMI) [Ratio] 25.46 kg/m2 Jef Mariela Jr., DPM Work Phone: [facility] 12-19-2020 11:17-0400 Body temperature 97.2 [degF] Jef Mariela Jr., DPM Work Phone: [facility] 12-19-2020 11:17-0400 Body weight 69.4 kg Jef Mariela Jr., DPM Work Phone: [facility] 12-19-2020 11:17-0400 Diastolic blood pressure 84 mm[Hg] Jef Mariela Jr., DPM Work Phone: [facility] 12-19-2020 11:17-0400 Heart rate 111 /min Jef Mariela Jr., DPM Work Phone: [facility] 12-19-2020 11:17-0400 Systolic blood pressure 144 mm[Hg] Jef Mariela Jr., DPM Work Phone: [facility] 10-17-2020 08:11-0400 Body height 153.7 cm Jef Mariela Jr., DPM Work Phone: [facility] 10-17-2020 08:11-0400 Body mass index (BMI) [Ratio] 29.39 kg/m2 Jef Mariela Jr., DPM Work Phone: [facility] 10-17-2020 08:11-0400 Body temperature 97.2 [degF] Jef Mariela Jr., DPM Work Phone: [facility] 10-17-2020 08:11-0400 Body weight 69.4 kg Jef Velasquezute Ambrosio, DPM Work Phone: [facility] 10-17-2020 08:11-0400 Diastolic blood pressure 79 mm[Hg] Jef Mariela Ambrosio, DPM Work Phone: [facility] 10-17-2020 08:11-0400 Heart rate 82 /min Jef Mariela Ambrosio, DPM Work Phone: [facility] 10-17-2020 08:11-0400 Systolic blood pressure 133 mm[Hg] Jef Mariela Ambrosio, DPM Work Phone: [facility] 10-03-2020 11:22-0400 Diastolic blood pressure 83 mm[Hg] [address] 10-03-2020 11:22-0400 Heart rate 84 /min [address] 10-03-2020 11:22-0400 Respiratory rate 16 /min [address] 10-03-2020 11:22-0400 Systolic blood pressure 174 mm[Hg] [address] 10-03-2020 09:15-0400 Body temperature 97.9 [degF] [address] 09-26-2020 11:50-0400 Body height 165.1 cm Franck Mtz MD Work Phone: [facility] 09-26-2020 11:50-0400 Body mass index (BMI) [Ratio] 25.96 kg/m2 Franck Mtz MD Work Phone: [facility] 09-26-2020 11:50-0400 Body weight 70.76 kg Franck Mtz MD Work Phone: [facility] 09-26-2020 11:50-0400 Diastolic blood pressure 67 mm[Hg] Franck Mtz MD Work Phone: [facility] 09-26-2020 11:50-0400 Heart rate 105 /min Franck Mtz MD Work Phone: [facility] 09-26-2020 11:50-0400 Systolic blood pressure 142 mm[Hg] Franck Mtz MD Work Phone: [facility] 09-21-2020 13:31-0400 Diastolic blood pressure 68 mm[Hg] [address] 09-21-2020 13:31-0400 Heart rate 89 /min [address] 09-21-2020 13:31-0400 Respiratory rate 16 /min [address] 09-21-2020 13:31-0400 Systolic blood pressure 154 mm[Hg] [address] 09-21-2020 11:36-0400 Body temperature 97.9 [degF] [address] 09-14-2020 14:39-0400 Body temperature 99.39 [degF] Jef Sierra Jr., DPM Work Phone: [facility] 09-14-2020 14:39-0400 Diastolic blood pressure 85 mm[Hg] Jef Sierra Jr., DPM Work Phone: [facility] 09-14-2020 14:39-0400 Heart rate 98 /min Jef Sierra Jr., DPM Work Phone: [facility] 09-14-2020 14:39-0400 Systolic blood pressure 145 mm[Hg] Jef Sierra Jr., DPM Work Phone: [facility] 09-13-2020 09:34-0400 Body height 165.1 cm Luis Miguel Kaur MD Work Phone: [facility] 09-13-2020 09:34-0400 Body mass index (BMI) [Ratio] 25.66 kg/m2 Luis Miguel Kaur MD Work Phone: [facility] 09-13-2020 09:34-0400 Body weight 69.94 kg Luis Miguel Kaur MD Work Phone: [facility] 09-13-2020 09:34-0400 Diastolic blood pressure 74 mm[Hg] Luis Miguel Kaur MD Work Phone: [facility] 09-13-2020 09:34-0400 Heart rate 89 /min Luis Miguel Kaur MD Work Phone: [facility] 09-13-2020 09:34-0400 Systolic blood pressure 158 mm[Hg] Luis Miguel Kaur MD Work Phone: [facility] 04-18-2020 08:16-0500 Body height 153.7 cm Jef Sierra Jr., DPM Work Phone: [facility] 04-18-2020 08:16-0500 Body mass index (BMI) [Ratio] 29.39 kg/m2 Jef Sierra Jr., DPM Work Phone: [facility] 04-18-2020 08:16-0500 Body weight 69.4 kg Jef Sierra Jr., DPM Work Phone: [facility] 04-18-2020 08:16-0500 Diastolic blood pressure 86 mm[Hg] Jef Sierra Jr., DPM Work Phone: [facility] 04-18-2020 08:16-0500 Systolic blood pressure 136 mm[Hg] Jef Sierra Jr., DPM Work Phone: [facility] 05-29-2018 09:31-0400 BMI (Body Mass Index) 25.29 kg/m2 Jonathan Camara [facility] 05-29-2018 09:31-0400 Body Temperature 98.4 [degF] Jonathan Camara [facility] 05-29-2018 09:31-0400 BP Diastolic 90 mm[Hg] Jonathan [facility] 05-29-2018 09:31-0400 BP Systolic 159 mm[Hg] Jonathan [facility] 05-29-2018 09:31-0400 Height 165.1 cm Jonathan [facility] 05-29-2018 09:31-0400 Pulse (Heart Rate) 102 /min Jonathan [facility] 05-29-2018 09:31-0400 Pulse Oximetry 100 % Jonathan [facility] 05-29-2018 09:31-0400 Respiratory Rate 16 /min [facility] 05-29-2018 09:31-0400 Weight 68.95 kg [facility] 01-01-2018 14:05-0500 BMI (Body Mass Index) 25.07 kg/m2 [facility] Work Phone: 01-01-2018 14:05-0500 BP Diastolic 75 mm[Hg] [facility] Work Phone: 01-01-2018 14:05-0500 BP Systolic 121 mm[Hg] [facility] Work Phone: 01-01-2018 14:05-0500 Height 166.4 cm [facility] Work Phone: 01-01-2018 14:05-0500 Pulse (Heart Rate) 108 /min [facility] Work Phone: 01-01-2018 14:05-0500 Weight 69.4 kg [facility] Work Phone: 04-07-2017 12:24-0500 BP Diastolic 67 mm[Hg] Reji [facility] 04-07-2017 12:24-0500 BP Systolic 100 mm[Hg] [facility] 04-07-2017 12:24-0500 Pulse (Heart Rate) 98 /min Reji [facility] 04-07-2017 12:22-0500 BMI (Body Mass Index) 26.49 kg/m2 Reji Miramontes [facility] 04-07-2017 12:22-0500 Height 165.1 cm Reji Miramontes [facility] 04-07-2017 12:22-0500 Respiratory Rate 16 /min Reji Miramontes [facility] 04-07-2017 12:22-0500 Weight 72.21 kg Reji Miramontes [facility] Encounters Encounter Date Encounter Type Care Provider Facility Start: 02-23-2024 ambulatory Jami L Jemima Facility: [facility] Start: 11-21-2023 End: 11-21-2023 ambulatory Jami L Jemima Facility:[facility] Start: 10-24-2023 End: 10-24-2023 ambulatory Jami L Jemima Facility:[facility] Start: 10-10-2023 ambulatory [facility] Start: 08-19-2023 End: 08-19-2023 ambulatory NADIA CHAUDHARY Not Available Start: 05-27-2023 End: 05-27-2023 ambulatory Alaa ALAHMAD Facility:[facility] Start: 04-03-2023 End: 04-03-2023 ambulatory Ina Barcenas Facility:[facility] Start: 04-01-2023 End: 04-07-2023 Evaluation and management of inpatient Yaritza Evans Facility:[facility] Start: 03-29-2023 End: 03-29-2023 ambulatory RUFUS SHEN Facility:[facility] Start: 03-29-2023 Clinisync Result Encounter Rufus Shen MD Work Phone: [facility] External [facility] Unsolicited Start: 03-29-2023 Clinisync Result Encounter Rufus Shen MD Work Phone: [facility] External Department Unsolicited Start: 03-07-2023 End: 03-07-2023 ambulatory Platt Talal Nadeenmini Facility:[facility] Start: 01-16-2023 End: 01-16-2023 ambulatory Platt Talal Sarmini Facility:[facility] Start: 01-07-2023 End: 01-09-2023 Evaluation and management of inpatient Wil Putnam Facility:[facility] Start: 01-05-2023 End: 01-05-2023 Emergency department patient visit Joanne Templeton Facility:[facility] Start: 01-04-2023 End: 01-04-2023 ambulatory RUFUS SHEN Facility:[facility] Start: 12-13-2022 End: 12-13-2022 ambulatory MIGUEL BARKSDALE Facility:[facility] Start: 12-05-2022 End: 12-05-2022 ambulatory MIGUELMARIUSZ OGJack SESAYZAKIAEMERALD Facility:[facility] Start: 12-03-2022 End: 12-03-2022 [facility]ulatory [facility] Start: 11-22-2022 End: 11-25-2022 ambulatory GANGA SAVAGE [facility] Start: 04-02-2022 End: 04-05-2022 ambulatory ALISIA VAISHALI CRUMP [facility] Start: 04-02-2022 End: 04-04-2022 Subsequent hospital visit by physician Vineet McH Xr [facility] Comment on above: S/P cervical spinal fusion Start: 12-04-2021 End: 12-06-2021 Subsequent hospital visit by physician Vineet C-Arm 1 [facility] Comment on above: Atlanto[employer] instabi lity; S/P cervical spinal fusion Start: 11-22-2021 End: 11-22-2021 ambulatory Rufus Shen Facility:[facility] Start: 11-22-2021 End: 11-22-2021 ambulatory II Rufus Shen Work Phone: [facility] Work Phone: Start: 11-22-2021 End: 11-22-2021 Departed Referred II Rufus Shen Work Phone: [facility] [place] Start: 08-20-2021 End: 08-22-2021 Evaluation and management of inpatient JERRY POZO Facility:[facility] Start: 07-14-2021 End: 08-10-2021 Evaluation and management of inpatient Anthony Lucero DO Work Phone: [facility] Start: 07-13-2021 End: 07-14-2021 Emergency department patient visit Anthony Villarreal MD Work Phone: [facility] Comment on above: COVID-19 (Primary Dx ); Pneumonia of left lower lobe due to infectious organism; Hypokalemia; Hypomagnesemia; USP (current) use of antibiotics Start: 06-28-2021 End: 07-10-2021 Evaluation and management of inpatient Wil Martinez MD Work Phone: [facility] Start: 06-28-2021 End: 06-28-2021 Emergency department patient visit Chris Boothe MD Work Phone: [facility] Comment on above: Non-intractable vomi ting with nausea, unspecified vomiting type (Primary Dx); Altered mental status, unspecified altered mental status type; Leukocytosis, unspecified type Start: 05-18-2021 End: 05-29-2021 Evaluation and management of inpatient [facility] Start: 05-18-2021 End: 05-18-2021 Emergency department patient visit [facility] Start: 05-15-2021 ambulatory [facility] Facilit y:[facility] Start: 05-11-2021 ambulatory SANIA CRUZ Facility: [facility] Start: 05-11-2021 End: 05-11-2021 ambulatory [facility] Start: 05-11-2021 End: 05-11-2021 Patient encounter procedure Sania Shiraz DO Work Phone: [facility] Comment on above: CIDP (chronic inflam matory demyelinating polyneuropathy) (Primary Dx) Start: 05-07-2021 ambulatory [facility] Facilit y:[facility] Start: 05-01-2021 End: 05-01-2021 ambulatory [facility] Start: 05-01-2021 End: 05-01-2021 Office outpatient visit 15 minutes Tia Baugh PA-C Work Phone: [facility] Comment on above: Partial thickness bu rn of single finger of right hand excluding thumb, initial encounter (Primary Dx); Wound infection; Laceration of right thumb, initial encounter Start: 04-25-2021 ambulatory NERI P [facility]SE Facilit y:[facility] Start: 04-17-2021 End: 04-17-2021 ambulatory 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 (HCC) (Primary Dx) Start: 04-12-2021 ambulatory [facility] Facilit y:[facility] Start: 04-12-2021 ambulatory N[facility] Facilit y:[facility] Start: 04-06-2021 End: 04-06-2021 Evaluation and management of inpatient PCP PCP UNKNOWN~[id number] PHYSICIAN PHYSICIAN [facility] Start: 04-06-2021 End: 04-07-2021 Evaluation and management of inpatient VAISHALI SLIMAN [facility] Start: 04-05-2021 ambulatory NERI P [facility] Facilit y:[facility] Start: 03-27-2021 End: 03-27-2021 ambulatory [facility] Start: 03-27-2021 End: 03-27-2021 Office outpatient visit 15 minutes Jef Sierra DPM Work Phone: [facility] Comment on above: Chronic ulcer of gre at toe of left foot with fat layer exposed (HCC) (Primary Dx) Start: 03-07-2021 ambulatory KRYSTYNA BUSBY Facility :[facility] Start: 03-06-2021 End: 03-06-2021 ambulatory [facility] Start: 03-01-2021 ambulatory NERI P [facility]SE Facilit y:[facility] Start: 02-21-2021 ambulatory NERI P [facility]SE Facilit y:[facility] Start: 02-20-2021 End: 02-20-2021 ambulatory [facility] Start: 02-20-2021 End: 02-20-2021 Patient encounter procedure Jef Sierra DPM Work Phone: [facility] Comment on above: Chronic ulcer of gre at toe of left foot with fat layer exposed (HCC) Start: 02-15-2021 ambulatory NERI Parker HOUSE Facilit y:[facility] Start: 02-14-2021 ambulatory NERI P HOUSE Facilit y:[facility] Start: 02-12-2021 ambulatory NERI P HOUSE Facilit y:[facility] Start: 02-07-2021 ambulatory NERI P HOUSE Facilit y:[facility] Start: 2021 End: 2021 ambulatory [facility]ACH[facility]L [facility] Start: 2021 End: 2021 Patient encounter procedure Jef Velasquezn DPM Work Phone: [facility] Comment on above: Ulcer of left foot w ith fat layer exposed (HCC) (Primary Dx) Start: 01-30-2021 End: 01-30-2021 ambulatory [facility]EF [facility]ACH[facility]L [facility] Start: 01-30-2021 End: 01-30-2021 Patient encounter procedure Jef Mariela DPM Work Phone: [facility] Comment on above: Ulcer of left foot w ith fat layer exposed (HCC) (Primary Dx) Start: 01-24-2021 End: 01-24-2021 ambulatory JEF VELASQUEZUte L[facility]. [facility] Start: 01-24-2021 End: 01-24-2021 Patient encounter procedure Jef Mariela DPM Work Phone: [facility] Comment on above: Ulcer of left foot w ith fat layer exposed (HCC) (Primary Dx) Start: 01-23-2021 ambulatory NERI Parker HOUSE Facilit y:[facility] Start: 01-16-2021 End: 01-16-2021 ambulatory JEF VELASQUEZUte 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 [facility] Start: 01-09-2021 End: 01-09-2021 Patient encounter procedure Jef Sierra DPM Work Phone: [facility] Comment on above: Ulcer of left foot w ith fat layer exposed (HCC) (Primary Dx) Start: 01-02-2021 End: 01-02-2021 ambulatory JEF [facility] Start: 01-02-2021 End: 01-02-2021 Patient encounter procedure Jef Sierra DPM Work Phone: [facility] Comment on above: Non-pressure chronic ulcer of other part of left foot with fat layer exposed (HCC) (Primary Dx); Ulcer of left foot with fat layer exposed (HCC) Start: 01-01-2021 ambulatory NERI Elena SANTA Facilit y:[facility] Start: 12-27-2020 ambulatory NERI SANTA Facilit y:[facility] Start: 12-27-2020 ambulatory SHARON Harrison cility:[facility] Start: 12-26-2020 ambulatory SELF SELF Facility:[facility] Start: 12-19-2020 End: 12-19-2020 ambulatory JEF [facility] Start: 12-19-2020 End: 12-19-2020 Patient encounter procedure Jef Sierra DPM Work Phone: [facility] Comment on above: Ulcer of left foot w ith fat layer exposed (HCC) (Primary Dx) Start: 12-13-2020 ambulatory KRYSTYNAAGUSTO BUSBY Facility :[facility] Start: 12-13-2020 ambulatory SHARON Harrison cility:[facility] Start: 12-06-2020 Orders Only Jef unger DPM Work Phone: [facility] Start: 12-05-2020 End: 12-05-2020 ambulatory JEF [facility] Start: 11-16-2020 End: 11-16-2020 ambulatory JEF MARIELA [facility] Start: 10-17-2020 End: 10-21-2020 ambulatory JEF MARIELA [facility] Start: 10-17-2020 End: 10-17-2020 Office outpatient visit 15 minutes Jef Sierra DPSallie Work Phone: [facility] Comment on above: Chronic ulcer of gre at toe of left foot, unspecified ulcer stage (HCC) (Primary Dx) Start: 10-10-2020 End: 10-10-2020 Office outpatient visit 25 minutes Olga Lidia Matos MD Work Phone: [facility] Comment on above: Primary open angle g laucoma (POAG) of right eye, severe stage (Primary Dx); Primary open angle glaucoma (POAG) of left eye, severe stage; Diabetic macular edema; Pseudophakia Start: 10-03-2020 End: 10-03-2020 ambulatory [facility] Start: [...] (Primary Dx) Start: 09-21-2020 End: 09-21-2020 ambulatory [facility] Start: 09-21-2020 End: 09-21-2020 Patient encounter procedure Neri P House DO Work Phone: [facility] Comment on above: 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 Start: 09-14-2020 End: 09-14-2020 Office outpatient visit 15 minutes Jef Sierra DPM Work Phone: [facility] Comment on above: Great toe pain, left (Primary Dx); Foot abscess, left Start: 09-13-2020 End: 09-13-2020 Chart abstracting Jef Sierra DPM Work Phone: [facility] Comment on above: Asthma, [...] minutes Luis Miguel Kaur MD Work Phone: [facility] Endocrinology Comment on above: Type 2 diabetes ebty itus with diabetic polyneuropathy, with long-term current use of insulin (Primary Dx); Acquired hypothyroidism Start: 09-12-2020 ambulatory JEF SIERRA JR. [facility] Start: 04-25-2020 End: 04-25-2020 Orders Only Kristen Chamberlain Work Phone: [facility] Start: 02-17-2020 End: 02-17-2020 Subsequent hospital visit by physician Sr [facility] Start: 01-27-2020 End: 01-28-2020 Patient encounter procedure NERI SANTA Facility:[facility] Start: 12-22-2019 End: 12-23-2019 Patient encounter procedure NERI SANTA Facility:[facility] Start: 12-20-2019 End: 12-20-2019 Emergency department patient visit NERI SANTA [facility] Start: 12-20-2019 End: 12-20-2019 Emergency department patient visit Andres Lubin Work Phone: [facility] Emergency Department Comment on above: Avulsion of fingerna il, initial encounter (Primary Dx) Start: 05-29-2018 End: 05-29-2018 Emergency department patient visit Jonathan Camara Work Phone: [facility] Emergency Department Comment on above: Cellulitis (Primary Dx) Start: 01-20-2018 End: 01-20-2018 Patient encounter procedure Rich Beltran [facility] Endocrinology Comment on above: Type 2 diabetes bety itus without complication, with long-term current use of insulin Start: 01-06-2018 End: 01-06-2018 Patient encounter Balbina Goss [facility] Rheumatology Comment on above: Appointment Start: 01-05-2018 End: 01-05-2018 Patient encounter Yusra Ching [facility] Endocr[facility]ology Comment on above: Type 2 diabetes bety itus without complication, with long-term current use of insulin (Primary Dx) Start: 01-01-2018 End: 01-01-2018 Office outpatient visit 25 minutes Luis Miguel Kaur Work Phone: [facility] Endocrinology Comment on above: Type 2 diabetes bety itus with diabetic polyneuropathy, without long-term current use of insulin (Primary Dx); Mixed hyperlipidemia Start: 01-01-2018 End: 01-01-2018 Patient encounter Historical Provider Neurology Madie Velazquez Start: 12-16-2017 Patient encounter procedure Pili Gilliam Facility:[facility] Start: 11-25-2017 Patient encounter procedure Pili Gilliam Facility:[facility] Start: 11-25-2017 End: 11-25-2017 Patient encounter Pili Gilliam Work Phone: [facility] Start: 11-03-2017 Patient encounter procedure Pili Gilliam Facility:[facility] Start: 08-22-2017 End: 08-22-2017 Patient encounter procedure Joanne Garvin Facility:[facility] Start: 08-14-2017 Patient encounter procedure Joanne Garvin Facility:[facility] Start: 06-13-2017 Patient encounter procedure Martha Yan Facility:[facility] Start: 06-04-2017 End: 06-05-2017 Emergency department patient visit Ariel Franklin Facility:[facility] Start: 04-11-2017 End: 04-11-2017 Ambulatory Martha Harris Gifford Work Phone: [facility] Start: 04-07-2017 Office/outpatient olivier solis, level 3 Pili Gilliam Work Phone: [facility] Start: 03-28-2017 End: 03-28-2017 Ambulatory Pili Gilliam Work Phone: [facility] Start: 03-14-2017 End: 03-14-2017 Ambulatory Pilisarai Juárez Mane Work Phone: [facility] Procedures Date Procedure Procedure Detail Performing Clinician Start: 03-29-2023 [facility] CBC W/ AUTO DIFF D aram Shen MD Work Phone: Start: 04-02-2022 Radex spine cervical 4 or 5 views Alisia Crump DO Work Phone: Start: 12-04-2021 Radex spine cervical 2 or 3 views Alie Loza FUR FINISHER - HOG TENDER Work Phone: Start: 08-20-2021 Antibody screen JERRY BARRAZA Comment on above: Performed By: #### [id number] #### [address] Start: 08-10-2021 Glucose blood reagent strip [...] 08-09-2021 End: 08-09-2021 Glucose blood reagent strip Aniket paez MD Work Phone: Start: 08-08-2021 Glucose [...] cervical 2 or 3 views Kam Loera FUR FINISHER - HOG TENDER Work Phone: Start: 08-07-2021 Glucose blood reagent [...] 07-25-2021 End: 07-25-2021 Blood count hemoglobin Missy Daillo Work Phone: Start: 07-25-2021 Ct angio abd&plvis c ntrst mtrl w/wo cntrst img Xin Grove MD Work Phone: Start: 07-25-2021 Ct cervical spine w/ o contrast material Kam Prado FUR FINISHER - SUPERVISOR DETASSELING CREW Work Phone: Start: 07-25-2021 End: 07-25-2021 Transfusion of packed red blood cells Keri Hart MD Work Phone: Start: 07-25-2021 Radiologic exam abdomen 1 view Keri Hart MD Work Phone: Start: 07-25-2021 End: 07-25-2021 Blood count hemoglobin Missy Diallo Work Phone: Start: 07-25-2021 Electroencephalogram w/rec awake&drowsy Sindy Sunshine FUR FINISHER - HOG TENDER Work Phone: Start: 07-25-2021 End: 07-25-2021 Calcium [...] ncd id imfluor stain ea Jany Francis FUR FINISHER - HOG TENDER Work Phone: Start: 07-24-2021 End: 07-24-2021 Blood [...] Johnny Robledo MD Work Phone: Start: 07-21-2021 BASIC METABOLIC [...] Start: 07-16-2021 End: 07-16-2021 Assay of magnesium Bceki Chang MD Work Phone: Start: 07-16-2021 End: [...] 07-15-2021 Assay of glutamyltrase gamma Ava Stemple FUR FINISHER - SUPERVISOR [employer] Work Phone: Start: 07-15-2021 BASIC METABOLIC PANE L W/ REFLEX TO MG FOR LOW K Tami Vega MD Work Phone: Start: 07-15-2021 Hepatic function panel Ava Stemple FUR FINISHER - SUPERVISOR [employer] Work Phone: Start: 07-15-2021 Ecg routine ecg w/le ast 12 lds trcg only w/o i&r Tami Vega MD Work Phone: Start: 07-14-2021 Glucose blood reagent strip Silver Carmona MD Work Phone: Start: 07-14-2021 Glucose blood reagent strip Silver Carmona MD Work Phone: Start: 07-14-2021 Culture bacterial bl ood aerobic w/id isolates Ava Stemple FUR FINISHER - SUPERVISOR [employer] Work Phone: Start: 07-14-2021 CULTURE, BLOOD 1 Bridge tte Stemple FUR FINISHER - SUPERVISOR [employer] Work Phone: Start: 07-14-2021 Assay of magnesium [...] cervical 2 or 3 views Kam Prado FUR FINISHER - SUPERVISOR [employer]SELING [employer]W Work Phone: Start: 07-10-2021 Insj prph ctr vad w/ subq port age 3 yr/> Meka Crowe MD Work Phone (unformatted): [phone] Start: 07-10-2021 COVID-19, RAPID Rufus Argueta MD Work Phone: Start: 07-10-2021 Ct cervical spine w/ o contrast material Kam Prado FUR FINISHER - SUPERVISOR [employer] Work Phone: Start: 07-10-2021 Glucose blood reagent [...] of packed red blood cells Nas Canales FUR FINISHER - HEAT TREATING BLUER Start: 07-06-2021 Blood typing serologic abo Johnny [...] brain stem w/o w/contrast material Sindy Sunshine FUR FINISHER - HOG TENDER Work Phone: Start: 07-05-2021 Glucose blood reagent strip Johnny Rolbedo MD Work Phone: Start: 07-05-2021 Radiologic exam swal low function contrast study Sindy Sunshine FUR FINISHER - HOG TENDER Work Phone: Start: 07-05-2021 End: 07-05-2021 Potassium [...] vical w/o & w/contr matrl Kam Prado FUR FINISHER - SUPERVISOR [employer] Work Phone: Start: 07-04-2021 Glucose blood reagent strip Johnny Robledo MD Work Phone: Start: 07-04-2021 End: 07-04-2021 CULTURE, BLOOD 1 Giulia Bray APR N - HOG TENDER Work Phone: Start: 07-04-2021 Glucose blood reagent [...] study Meka Crowe MD Work Phone (unformatted): [phone] Start: 07-03-2021 Glucose blood reagent strip Johnny Robledo MD Work Phone: Start: 07-03-2021 Radiologic exam swal low function contrast study Rufus Argueta MD Work Phone: Start: 07-03-2021 Echo tthrc r-t 2d w/ wom-mode compl spec&colr d Meka Crowe MD Work Phone (unformatted): [phone] Start: 07-03-2021 Glucose blood reagent strip Johnny [...] 1 Moni Crowe MD Work Phone (unformatted): [phone] Start: 07-02-2021 End: 07-02-2021 Esophagoscopy intra/transmural needle [...] 1 Moni Crowe MD Work Phone (unformatted): [phone] Start: 06-30-2021 End: 06-30-2021 Blood count hemoglobin [...] 1 Moni Crowe MD Work Phone (unformatted): [phone] Start: 06-30-2021 C-reactive protein Neal Argueta MD Work Phone: Start: 06-29-2021 Glucose blood reagent strip Jenifer Jewell MD Work Phone: Start: 06-29-2021 Ct cervical spine w/ contrast material Meka Crowe MD Work Phone (unformatted): [phone] Start: 06-29-2021 Ct thorax w/o contra st material Meka Crowe MD Work Phone (unformatted): [phone] Start: 06-29-2021 Radiologic exam ches t single [...] MD Work Phone: Start: 05-11-2021 Creatinine blood Franck Mzt MD Work Phone: Start: 03-01-2021 Follow-up visit [...] or At-Risk (2 of 2 - PPSV23) [facility] Start: 08-12-2023 Lipid panel Lipids [facility] Start: 07-09-2023 End: 07-09-2023 Patient encounter procedure 07/09/2023 9:05 AM EDT Office Visit [facility] [address] [place] [address] Nadia Chaudhary APRN-HOG TENDER [address] [place] [address] [facility] Start: 10-01-2022 End: 10-01-2022 Patient encounter procedure 10/01/2022 Office Visit Neurosurgery Alisia Crump, DO [address] [place] [address] [facility] Start: 09-27-2022 GFR test (Diabetes, CKD 3-4, OR last GFR 15-59) GFR test (Diabetes, CKD 3-4, OR last GFR 15-59) [facility] Start: 09-09-2022 Hemoglobin A1c measurement A1C test (Diabetic or Prediabetic) [facility] Start: 07-24-2022 Screening for malignant neoplasm of colon [facility] Start: 06-30-2022 Diabetic foot examination [facility] Start: 06-28-2022 Lipid panel [facility] Start: 04-12-2022 Diabetic retinal exam Diabetic retinal exam [facility] Start: 04-12-2022 Diabetic retinal eye exam EYE EXAM [facility] Start: 04-12-2022 Glaucoma screening Diabetic retinal exam [facility] Start: 04-12-2022 [facility] Start: 01-27-2023 LIPIDS LIPIDS [facility] Start: 03-15-2022 Microalbumin measurement, urine, quantitative URINE MICROALBUMIN TEST [facility] Start: 03-15-2022 Thyroid stimulating hormone measurement TSH [facility] Start: 03-08-2022 End: 03-08-2022 Patient encounter procedure 03/08/2022 Office Visit Neurosurgery Alisia CrumpDO ute [address] [place] [address] [facility] Start: 02-14-2022 Ophthalmic examination and evaluation Ophthalmology Exam [facility] Start: 12-27-2021 Ophthalmic examination and evaluation Ophthalmology Exam [facility] Start: 12-07-2021 End: 12-07-2021 Patient encounter procedure 12/07/2021 Office Visit Urology [facility] Start: 10-18-2021 Influenza vaccination Flu vaccine (Season Ended) [facility] Start: 10-18-2021 [facility] Start: 10-05-2021 Diabetic retinal eye exam DIABETIC EYE EXAM [facility] Start: 09-28-2021 Hemoglobin A1c measurement [facility] Start: 09-17-2021 Influenza vaccination Flu vaccine (#1) [facility] Start: 09-13-2021 Diabetic retinal eye exam DIABETIC EYE EXAM [facility] Start: 09-12-2021 Hemoglobin A1c measurement HBA1C TEST [facility] Start: 09-01-2021 LIPIDS LIPIDS [facility] Start: 09-01-2021 Microalbumin measurement, urine, quantitative URINE MICROALBUMIN TEST [facility] Start: 09-01-2021 Potassium [Moles/volume] in Serum or Plasma POTASSIUM [facility] Start: 08-22-2021 End: 08-22-2021 CERVICAL LAMINECTOMY FUSION [facility] Start: 08-22-2021 End: 08-22-2021 [facility] Start: 08-16-2021 Diabetic retinal eye exam DIABETIC EYE EXAM [facility] Start: 08-08-2021 End: 08-08-2021 Patient encounter procedure 08/08/2021 Office Visit Infectious Diseases Meka Crowe MD [address] [facility] [place] [address] [phone] (Work) [facility] Start: 07-31-2021 End: 07-31-2021 Patient encounter procedure 07/31/2021 Office Visit Podiatry Jef Sierra Jr., DPM [address] [place] [address] [facility] Start: 07-25-2021 End: 07-25-2021 Patient encounter procedure 07/25/2021 Office Visit Neurosurgery Aile Loza, FUR FINISHER - HOG TENDER [address] [facility] [address] [place] [address] [facility] Start: 07-17-2021 End: 07-17-2021 Patient encounter procedure 07/17/2021 Office Visit Urology Kevin Quintanilla MD [address] [place] [address] [facility] Start: 07-13-2021 End: 07-10-2022 Basic metabolic 2000 panel - Serum or Plasma [facility] Work Phone: Start: 07-10-2021 End: 07-10-2021 Patient encounter procedure 07/10/2021 Office Visit Neurology Franck Mtz MD [address] [place] [phone] [facility] Start: 07-04-2021 Hemoglobin A1c measurement A1C [facility] Start: 07-04-2021 End: 07-04-2021 ambulatory 07/04/2021 Infusion Visit Neurology [facility] Start: 06-20-2021 End: 06-20-2021 ambulatory 06/20/2021 Infusion Visit Neurology [facility] Start: 06-18-2021 End: 06-18-2021 Patient encounter procedure 06/18/2021 Office Visit Endocrinology, Diabetes & Metabolism Luis Miguel Kaur MD [address] [place] [address] [facility]ocr[facility] Start: 06-07-2021 End: 06-07-2021 Patient encounter procedure 06/07/2021 Office Visit Ophthalmology Sharon Hernandez MD [address] [place] [address] [facility] Start: 06-06-2021 End: 06-06-2021 ambulatory 06/06/2021 Infusion Visit Neurology [facility] Start: 06-05-2021 End: 06-05-2021 Patient encounter procedure 06/05/2021 Office Visit Orthopaedics Yaritza Stanley MD [address] [place] [address] [facility] Start: 05-31-2021 End: 05-31-2021 Patient encounter procedure 05/31/2021 Office Visit Ophthalmology Sharon Hernandez MD [address] [place] [address] [facility] Start: 05-23-2021 End: 05-23-2021 ambulatory 05/23/2021 Infusion Visit Neurology [facility] Start: 05-15-2021 End: 05-15-2021 Patient encounter procedure 05/15/2021 Office Visit Ophthalmology Olga Lidia Matos MD [address] [place] [address] [facility] Start: 04-17-2021 End: 04-17-2021 Patient encounter procedure 04/17/2021 Office Visit Podiatry Jef Sierra Jr., DPSallie [address] [place], [place] [id number] [facility] Start: 03-06-2021 End: 03-06-2021 Patient encounter procedure 03/06/2021 Office Visit Jef Vieira Jr., DPM [address] [place] [address] [facility] Start: 03-04-2021 Hemoglobin A1c measurement [facility] Start: 02-20-2021 End: 02-20-2021 Patient encounter procedure 02/20/2021 Office Visit Jef Vieira Jr., DPSallie [address] [place] [address] [facility] Start: 2021 End: 2021 Patient encounter procedure 2021 Office Visit Jef Vieira Jr., DPM [address] [place] [address] [facility] Start: 01-30-2021 End: 01-30-2021 Patient encounter procedure 01/30/2021 Office Visit PodJef Wagner Jr., DPSallie [address] [place] [address] [facility] Start: 01-23-2021 End: 01-23-2021 Patient encounter procedure 01/23/2021 Office Visit Jef Vieira Jr., DPM [address] [place] [address] [facility] Start: 01-16-2021 End: 01-16-2021 Patient encounter procedure 01/16/2021 Office Visit Jef Vieira Jr., DPSallie [address] [facility] [place] [address] [facility] Start: 01-09-2021 End: 01-09-2021 Patient encounter procedure 01/09/2021 Office Visit Jef Vieira Jr., MARK [address] [place] [address] [facility] Start: 01-01-2021 End: 01-01-2021 Patient encounter procedure 01/01/2021 Office Visit Neurology Nurys Thornton, FUR FINISHER-HOG TENDER [address] [facility] [address] [place] [address] Neurology [facility] Start: 12-26-2020 End: 12-26-2020 Patient encounter procedure 12/26/2020 Office Visit PodJef Wagner Jr., DPSallie [address] [place] [address] [facility] Start: 12-02-2020 Hemoglobin A1c measurement A1C [facility] Start: 11-30-2020 End: 11-30-2020 Patient encounter procedure 11/30/2020 Office Visit Ophthalmology Sharon Hernandez MD [address] [facility] [address] [place] [address] [facility] Start: 11-16-2020 End: 11-16-2020 Patient encounter procedure 11/16/2020 Office Visit PodJef Wagner Jr., DPSallie [address] [place] [address] [facility] Start: 11-16-2020 End: 11-16-2020 Patient encounter procedure 11/16/2020 Office Visit Endocrinology, Diabetes & Metabolism Luis Miguel Kaur MD [address] [place] [address] [facility] Endocrinology Start: 11-14-2020 End: 11-14-2020 Patient encounter procedure 11/14/2020 Office Visit Ophthalmology Olga Lidia Matos MD [address] [place] [address] [facility] Start: 11-07-2020 End: 11-07-2020 Patient encounter procedure 11/07/2020 Office Visit Neurology Nurys Thornton, FUR FINISHER-HOG TENDER [address] [address] Neurology [facility] Start: 10-18-2020 Influenza vaccination [facility] Start: 10-18-2020 End: 10-18-2020 Patient encounter procedure 10/18/2020 Office Visit Ophthalmology Sharon Hernandez MD [address] [facility] [address] [place] [address] [facility] Start: 10-17-2020 End: 10-17-2020 ambulatory 10/17/2020 Infusion Visit Neurology Infusion [facility] Start: 10-10-2020 End: 10-10-2020 Patient encounter procedure 10/10/2020 Office Visit Ophthalmology Olga Lidia Matos MD [address] [place] [address] [facility] Start: 10-06-2020 Pneumococcal 0-64 years Vaccine (2 - PCV) Pneumococcal 0-64 years Vaccine (2 - PCV) [facility] Start: 10-06-2020 [facility] Start: 10-05-2020 End: 10-05-2020 Patient encounter procedure 10/05/2020 Office Visit Ophthalmology Sharon Hernandez MD [address] [place] [address] [facility] [facility] Start: 10-03-2020 End: 10-03-2020 ambulatory [facility]fusion [facility] Start: 10-03-2020 End: 10-03-2020 Patient encounter procedure 10/03/2020 Office Visit Podiatry Jef Sierra Jr., DPM [address] [place] [address] [phone] [facility] Start: 09-26-2020 End: 09-26-2021 SENSORY MOTOR NEUROPATHY PANEL [facility] Work Phone: Comment on above: Expected: 09/26/2020, Expires: 2 Start: 09-26-2020 End: 09-26-2021 VEGF [facility] Comment on above: Expected: 09/26/2020, Expires: 2 Start: 09-19-2020 End: 09-19-2020 ambulatory 09/19/2020 Infusion Visit Neurology [facility] Start: 09-14-2020 End: 09-14-2020 Patient encounter procedure 09/14/2020 Office Visit Podiatry Jef Sierra Jr., DPM [address] [place] [address] [phone] [facility]ry Start: 10-19-2019 Influenza vaccination Flu vaccine (#1) [facility], [place] Start: 10-19-2019 Influenza vaccination given Sequential Influenza Vaccine (#1) [facility] Start: 08-25-2019 Creatinine [facility] [place] Start: 08-25-2019 [address] monitoring Potassium monitoring [facility], [place] Start: 08-12-2019 Urine screening for protein [facility] Start: 12-26-2018 LIPIDS LIPIDS [facility] Work Phone: Start: 12-19-2018 Diabetic retinal eye exam DIABETIC EYE EXAM [facility] Work Phone: Start: 10-09-2018 Thyrotropin Qn TSH [facility] Work Phone: Start: 08-04-2018 Annual Wellness Visit (AWV) Annual Wellness Visit (AWV) [facility] Start: 07-19-2018 HbA1c (Bld) [Mass fraction] A1C test (Diabetic or Prediabetic) [place], [place] Start: 07-06-2018 End: 07-06-2018 Ambulatory 07/06/2018 Office Visit Neurology Nurys Thornton, FUR FINISHER-HOG TENDER [address] [address] Neurology [facility] Start: 06-25-2018 Hemoglobin A1c/Hemoglobin.total mass fraction (Bld) HBA1C TEST [facility] Work Phone: Start: 04-04-2018 Protein mass conc MAMMOGRAM SCREENING DISCUSSION [facility] Work Phone: Start: 04-04-2018 Screening mammography MAMMOGRAM SCREENING DISCUSSION [facility] Start: 04-02-2018 End: 04-02-2018 Ambulatory 04/02/2018 Appointment NEUROPHYSIOLOGY Estefania Markham MD [address] [place] [phone] Department of Neurology Start: 03-20-2018 End: 03-20-2018 Ambulatory 03/20/2018 Office Visit Ophthalmology Grace Washington MD [address] [place] [address] [facility] Start: 03-05-2018 End: 03-05-2018 Ambulatory Division of Hematology & Oncology Start: 02-03-2018 End: 02-03-2018 Ambulatory 02/03/2018 Office Visit Sleep Medicine Stefani Estrada MD [address] [place] [address] [address] [place] [address] Department of Sleep Medicine Start: 01-22-2018 End: 01-22-2018 Ambulatory [facility] Rheumatology Start: 10-18-2017 Influenza vaccination [facility] Start: 10-18-2017 Influenza vaccination given SEQUENTIAL INFLUENZA VACCINE (#1) [facility] Start: 06-28-2017 Lipid panel Lipid screen [place], [place] Start: 04-11-2017 Ambulatory 04/11/2017 Hospital Encounter Martha Yan, DPM [address] [place] [address] [phone] [facility] Start: 04-07-2017 Ambulatory 04/07/2017 Office Visit Cardiology Pili Gilliam, DPM [address] [place] [address] [phone] Reji Miramontes III, DO [address] [place] [address] [phone] [facility] Start: 10-18-2016 Influenza vaccination SEQUENTIAL INFLUENZA VACCINE (#1) [facility] Start: 06-25-2014 Diabetic microalbuminuria test Diabetic microalbuminuria test [place] Start: 12-30-2013 Administration of herpes zoster vaccine Zoster Vaccines (2 of 3) [facility] Start: 12-30-2013 Shingles vaccine (1 of 2) Shingles vaccine (1 of 2) [facility] Start: 12-30-2013 Shingles vaccine (2 of 3) Shingles vaccine (2 of 3) [facility] Start: 12-30-2013 Zoster vaccine hzv live for subcutaneous use ZOSTER (SHINGLES) VACCINE (2 of 3) [facility] Start: 12-30-2013 [facility] Start: 2013 Administration of herpes zoster vaccine Zoster Vaccines (1 of 2) [facility] Start: 2013 Colonoscopy COLON CANCER SCREENING DISCUSSION [facility] Work Phone: Start: 2013 Protein mass conc COLON CANCER SCREENING DISCUSSION [facility] Work Phone: Start: 2013 Screening for malignant neoplasm of breast [facility] Start: 2013 Screening for malignant neoplasm of colon [facility] Start: 2013 Shingles Vaccine (1 of 2) Shingles Vaccine (1 of 2) [place] Start: 2013 Zoster vaccine hzv live for subcutaneous use ZOSTER (SHINGLES) VACCINE (1 of 2) [facility] Start: 02-07-2008 Colonoscopy COLORECTAL CANCER SCREENING DISCUSSION [facility] Start: 02-07-2008 Screening for malignant neoplasm of colon [facility] Start: 2003 Screening for malignant neoplasm of breast Mammogram [facility] Start: 1993 Screening for malignant neoplasm of cervix [facility] Start: 02-07-1984 Screening for malignant neoplasm of cervix [facility] Start: 1982 DTaP/Tdap/Td vaccine (1 - Tdap) DTaP/Tdap/Td vaccine (1 - Tdap) [facility] Start: 1982 Hepatitis B vaccine (1 of 3 - Risk 3-dose series) Hepatitis B vaccine (1 of 3 - Risk 3-dose series) [facility] Start: 1982 Third diphtheria, tetanus and acellular pertussis (DTaP) vaccination TDAP (ADULT) [facility] Start: 1982 [facility] Start: 1981 Hepatitis C antibody, confirmatory test Hepatitis C Screening [facility] Start: 1981 Hepatitis C screening [facility] Start: 1981 Microalbumin measurement, urine, quantitative URINE MICROALBUMIN TEST [facility] Work Phone: Start: 1981 Tetanus vaccination TETANUS [facility] Start: 1979 COVID-19 Vaccine (1 of 2) COVID-19 Vaccine (1 of 2) [facility] Start: 1978 HIV screening [facility] Start: 02-07-1976 HIV screening HIV SCREENING DISCUSSION [facility] Work Phone: Start: 1975 Adolescent depression screening assessment Depression Screening (PHQ9) [facility] Start: 1975 COVID-19 Vaccine (1) COVID-19 Vaccine (1) [facility] Start: 1975 Depression Screen Depression Screen [facility] Start: 1975 Depression screening using PHQ-9 (Patient Health Questionnaire 9) score [facility] Start: [address] [facility] [employer] Start: 1973 Diabetic foot examination (regime/therapy) [facility] Start: 1973 Diabetic retinal exam Diabetic retinal exam [place], [place] Start: 1973 Microalbumin measurement, urine, quantitative Urine Microalbumin [facility] Start: 1973 Ophthalmic examination and evaluation OPHTHALMOLOGY EXAM [facility] Start: 1973 Urine, microalbumin URINE MICROALBUMIN [facility] Start: 1969 Pneumococcal Vaccine: Ped or At-Risk (1 of 2 - PPSV23) Pneumococcal Vaccine: Ped or At-Risk (1 of 2 - PPSV23) [facility] Start: 02-07-1968 COVID-19 Vaccine (1) COVID-19 Vaccine (1) [facility] Start: 02-07-1968 [facility] Start: 1966 History and physical examination, annual for health maintenance Wellness Visit [facility] Start: 1963 COVID-19 Vaccine (#1) COVID-19 Vaccine (#1) [facility] Start: 1963 Annual Wellness Visit (AWV) Annual Wellness Visit (AWV) [facility] Start: 1963 Diabetic foot examination DIABETIC FOOT EXAM [facility] Start: 1963 HbA1c HEMOGLOBIN A1C [facility] Start: 1963 Hemoglobin A1c measurement A1C [facility] Start: 1963 Hepatitis C antibody, confirmatory test HEPATITIS C SCREENING [facility] Start: 1963 HEPATITIS C SCREENING HEPATITIS C SCREENING [facility] Start: 1963 Hepatitis C screening Hepatitis C screen [place], [place] Start: 1963 Protein mass conc Mammogram [facility] Start: 1963 Screening colonoscopy COLONOSCOPY [facility] Start: 1963 Screening for malignant neoplasm of cervix PAP SMEAR [facility] Start: 1963 Screening for malignant neoplasm of colon Colorectal Cancer Screening: Colonoscopy [facility] Start: 1963 Screening mammography Mammogram [facility] Start: 1963 Tetanus vaccination [facility] Start: [address] [facility] [employer] End: 09-14-2021 Aerobic microbial culture Wound Aerobic Culture Microbiology Routine Foot abscess, left 1 Occurrences starting 09/14/2020 until 09/14/2021 [facility] Comment on above: 1 Occurrences starting 09/14/2020 until 09/14/2021 Aerobic microbial culture Wound Aerobic Culture Microbiology Routine Wound infection Partial thickness burn of single finger of right hand excluding thumb, initial encounter 05/01/2021 3:00 PM EDT [facility] Work Phone: Basic Metabolic Pane l w/ Reflex to MG [facility] Work Phone: Basic Metabolic Pane l w/ Reflex to MG [facility] Work Phone: BLOOD GAS, [facility] [employer] Work Phone: Blood gas, arterial [facility] [employer] Work Phone: C-reactive protein [facility] [employer] Work Phone: CBC W Auto Different ial panel - Blood [facility] Phone: End: 09-08-2021 CBC W Auto Differential panel - Blood [facility] Work Phone: CBC W Auto Different ial panel - Blood [facility] Work Phone: Continuous pulse oximetry [facility] Phone: End: 02-17-2020 COVID-19 COVID-19 Lab Routine Once for 1 Occurrences starting 02/17/2020 until 02/17/2020 [facility] [place], [place] Comment on above: Once for 1 Occurrences starting 02/17/20 20 until 02/17/2020 End: 09-08-2021 Creatinine [Mass/volume] in Serum or Plasma [facility] Work Phone: Culture, Anaerobic a nd Aerobic [employer] [facility] Work Phone: End: 06-28-2021 Culture, Blood 1 [employer] Phone: Comment on above: One Time for 1 Occurrences starting 06/17 until 06/28/2021 Culture, Blood 1 [employer] Phone: Culture, Blood 1 [employer] Phone: Culture, Blood 1 [employer] Phone: Culture,Bacterial Culture,Bacter ial Routine 03/14/2017 9:30 AM [facility] [employer] Work Phone: Glucose [Mass/volume ] in Serum or Plasma [employer] Phone: Glucose [Mass/volume ] in Serum or Plasma [employer] Phone: End: 08-02-2021 Glucose [Mass/volume] in Serum or Plasma [employer] Phone: End: 07-26-2021 Initiate RT Adult Mechanical Ventilation Protocol [employer] Phone: Mechanical Ventilati on with default initial settings [employer] Phone: Oxygen therapy [Mini mum Data Set] [employer] Phone: Oxygen therapy [Mini mum Data Set] [employer] Phone: End: 06-28-2021 PREVIOUS SPECIMEN [employer] Phone: End: 07-15-2021 PREVIOUS SPECIMEN [employer] Phone: End: 07-18-2021 PREVIOUS SPECIMEN [employer] Phone: End: 08-08-2021 PREVIOUS SPECIMEN [employer] Phone: Respiratory Care Evaluation and Treat [employer] Phone: End: 07-05-2021 EDUCATION GENERAL MANAGER clinical swallow evaluation [employer] Phone: End: 06-29-2021 Speech and language therapy regime [facility] [employer] Work Phone: Spontaneous Breathin g Trial (SBT) [facility] Work Phone: End: 07-14-2021 Wound ostomy eval and treat [facility] [employer] Work Phone: Immunizations Immunization Date Immunization Notes Care Provider [facility] 10-07-2019 influenza virus vacc ine, unspecified formulation Jef Sierra Jr., DPM Work Phone: [facility] 10-07-2019 pneumococcal vaccine , unspecified formulation Jef Sierra Jr., DPM Work Phone: [facility] 11-04-2013 influenza virus vacc ine, whole virus Franck Mtz MD Work Phone: [facility] 11-04-2013 influenza, seasonal, injectable Franck Mtz MD Work Phone: [facility] 11-04-2013 zoster vaccine, live Franck Mtz MD Work Phone: [facility] 11-04-2013 influenza virus vacc ine, unspecified formulation Luis Miguel Darmody [facility] Work Phone: 11-04-2013 zoster vaccine, unspecified formulation Franck Mtz MD Work Phone: [facility] 07-29-2012 pneumococcal polysaccharide vaccine, 23 valent Franck Mtz MD Work Phone: [facility] Payers Date Payer Category Payer Medicaid [id number] 2021 Self-pay [id number] 2017 Unknown [id number] 2002 Medicare xxxxxxxxxx [id number] 2002 Medicare [id number]. [id number] 2002 Medicare [id number] 1.2 .[id number] 2002 Unknown xxxxxxxxx 2.16. 840.1.776317.3.249.13 2001 Unknown [id number] 1.2.8 40.495043.1.13.385.2.7.3.115376.315 2001 Unknown 1.2.840.417417. 1.13.385.2.7.3.937803.315 1963 Unknown [id number] 2.16.8 40.1.532736.3.579.2.902 1963 Unknown [id number] 2.16.84 0.1.232423.3.579.2.593 1963 Unknown [id number] 2.16.84 0.1.812361.3.579.2.593 1963 Unknown [id number] 2.16. 840.1.762077.3.579.2.903 1963 Unknown [id number] 2.16. 840.1.621326.3.579.2.903 1963 Unknown [id number] 2.16. 840.1.804201.3.579.2.903 1963 Unknown [id number] 2.16. 840.1.273946.3.579.2.903 1963 Unknown [id number] 2.16. 840.1.551694.3.579.2.903 1963 Unknown [id number] 2.16. 840.1.865047.3.579.2.903 1963 Unknown [id number] 2.16. 840.1.847207.3.579.2.903 1963 Unknown [id number] 2.16. 840.1.617947.3.579.2.903 1963 Unknown [id number] 2.16. 840.1.755251.3.579.2.903 1963 Unknown [id number] 2.16. 840.1.443977.3.579.2.903 1963 Unknown [id number] 2.16. 840.1.322457.3.579.2.903 1963 Unknown [id number] 2.16. 840.1.329893.3.579.2.903 1963 Unknown [id number] 2.16. 840.1.259532.3.579.2.903 1963 Unknown [id number] 2.16. 840.1.057626.3.579.2.903 1963 Unknown [id number] 2.16. 840.1.204864.3.579.2.903 1963 Unknown [id number] 2.16. 840.1.892662.3.579.2.903 1963 Unknown [id number] 2.16. 840.1.418715.3.579.2.903 1963 Unknown [id number] 2.16.8 40.1.157155.3.579.2.1143 1963 Unknown [id number] 2.16.8 40.1.210787.3.579.2.1143 1963 Unknown [id number] 2.16. 840.1.297974.3.579.2.903 1963 Unknown [id number] 2.16. 840.1.168561.3.579.2.903 1963 Unknown [id number] 2.16. 840.1.953150.3.579.2.903 1963 Unknown [id number] 2.16.8 40.1.886655.3.579.2.647 1963 Unknown [id number] 2.16. 840.1.321796.3.579.2.594 1963 Unknown [id number] 2.16. 840.1.922703.3.579.2.594 1963 Unknown [id number] 2.16. 840.1.010576.3.579.2.594 1963 Unknown [id number] 2.16. 840.1.501800.3.579.2.594 1963 Unknown [id number] 2.16. 840.1.925010.3.579.2.594 1963 Unknown [id number] 2.16. 840.1.594791.3.579.2.594 1963 Unknown [id number] 2.16. 840.1.167475.3.579.2.594 1963 Unknown [id number] 2.16. 840.1.019855.3.579.2.594 1963 Unknown [id number] 2.16. 840.1.492265.3.579.2.594 1963 Unknown [id number] 2.16. 840.1.178192.3.579.2.594 1963 Unknown [id number] 2.16. 840.1.883701.3.579.2.594 1963 Unknown [id number] 2.16. 840.1.366209.3.579.2.594 1963 Unknown [id number] 2.16. 840.1.500434.3.579.2.594 1963 Unknown [id number] 2.16. 840.1.571709.3.579.2.594 1963 Unknown [id number] 2.16. 840.1.431781.3.579.2.594 1963 Unknown [id number] 2.16. 840.1.809266.3.579.2.594 1963 Unknown [id number] 2.16. 840.1.706216.3.579.2.594 1963 Unknown [id number] 2.16. 840.1.982518.3.579.2.594 1963 Unknown [id number] 2.16. 840.1.942290.3.579.2.594 1963 Unknown [id number] 2.16. 840.1.786194.3.579.2.594 1963 Unknown [id number] 2.16. 840.1.727140.3.579.2.594 1963 Unknown [id number] 2.16. 840.1.162609.3.579.2.594 1963 Unknown [id number] 2.16. 840.1.702829.3.579.2.594 1963 Unknown [id number] 2.16.8 40.1.295321.3.579.2.174 1963 Unknown [id number] 2.16. 840.1.637242.3.579.2.175 1963 Unknown [id number] 2.16. 840.1.672107.3.579.2.175 1963 Unknown [id number] 2.16.84 0.1.409439.3.579.2.1259 1963 Unknown [id number] 2.16.8 40.1.197292.3.579.2.727 1963 Unknown [id number] 2.16.8 40.1.233693.3.579.2.727 1963 Unknown [id number] 2.16.8 40.1.490476.3.579.2.727 1963 Unknown [id number] 2.16.8 40.1.107881.3.579.2.727 1963 Unknown [id number] 2.16.8 40.1.122401.3.579.2.727 1963 Unknown [id number] 2.16.8 40.1.410726.3.579.2.727 1963 Unknown [id number] 2.16.8 40.1.619363.3.579.2.727 1963 Unknown [id number] 2.16.8 40.1.937309.3.579.2.727 1963 Unknown [id number] 2.16.8 40.1.620704.3.579.2.727 1963 Unknown [id number] 2.16.8 40.1.924666.3.579.2.727 1963 Unknown [id number] 2.16.8 40.1.644376.3.579.2.727 1963 Unknown [id number] 2.16.8 40.1.668302.3.579.2.727 1963 Unknown [id number] 2.16.8 40.1.046066.3.579.2.727 1963 Unknown [id number] 2.16.8 40.1.678443.3.579.2.727 1963 Unknown [id number] 2.16.8 40.1.916301.3.579.2.727 1959 Medicare [id number] 1959 Unknown [id number] 2.16. 840.1.872286.3.249.13 Medicare [id number] 2.16 .840.1.920149.3.249.13 Unknown [id number] Unknown [id number] 2.16.8 40.1.508210.3.579.2.531 Social History Date Type Detail Facility Start: 04-07-2017 End: 12-04-2021 Tobacco smoking status SCIS Former smoker [facility] End: 02-18-1996 History of tobacco use Current smoker [facility] Start: 1965 Sex Assigned At Not on file [facility] [employer] Work Phone: Start: 03-15-2017 End: 03-29-2017 Tobacco smoking status SCIS Unknown if ever smoked [facility] End: 02-18-1996 History of tobacco use Cigarette Smoker [facility] Work Phone: Start: 04-07-2017 Tobacco Comment doesn't rememb er how much she smoked [facility] Start: 04-07-2017 Alcohol Comment rarely [facility] Start: 12-20-2019 End: 12-04-2021 Tobacco use and exposure Never used [facility] Start: 12-20-2019 End: 05-01-2021 Alcohol intake Current drinker of alcohol (finding) [facility] Start: 04-07-2021 End: 07-13-2021 Exposure to SARS-CoV-2 (event) Not sure [facility] Start: 10-05-2017 End: 04-02-2022 Alcohol intake Current non-drinker of alcohol (finding) [place] Start: 1965 Sex Assigned At Female F [facility] Gender identity Not on file [facility] are Medical Equipment Procedure Code Equipment Code Equipment Origin al Text Equipment Identifier Dates 1 strip by Unkno wn route 3 times daily (take before meals). [id number] Start: 10-13-2017 End: 01-07-2018 Lens Au00t0 D 23 .5 - [id number] Start: 12-23-2018 Osc Tissue [place] [id number] Start: 02-23-2020 Implant Opth 250 sq Mm Jo 1 Qdrnt Ins Fx Sut Hl Rcs Knt Cpb - [id number] Start: 02-23-2020 [id number] Start: 07-06-2021 Set Screw Spinal M6 - [id number] Start: 09-25-2021 Clinical Notes 09-13-2020 to 04-07-2023 Ja Daniels RCP - 08/10/2021 5:[address], LD - 08/10/2021 1:44 PM Yvonne Stokes MD - 08/10/2021 11:38 AM Familia Ochoa MD - 08/10/2021 7:54 AM EDTDischarge Instr - TEX Note Date & Type Note Facility 04-07-2023 Note Attempted to call re port at [facility] no answer. Patient left by wheelchair van and was picked up by [facility]. SBAR, discharge summary and med rec faxed over to facility. Fidelia GARVIN updated on POC. [facility] 04-07-2023 Note [facility] Comment on above: Result Comment: Elec tronically Signed By: Wil Putnam DO\.br\Date and Time Signed: 04/07/23 11:18 EST 04-01-2023 Note [facility] Comment on above: Result Comment: Elec tronically Signed By: Marybel Sofia\.br\Date and Time Signed: 04/01/23 16:58 EST\.br\Electronically Co-Signed By: Marybel Sofia\.br\Date and Time Co-Signed: 04/01/23 17:02 EST\.br\Electronically Co-Signed By: JALEEL VIVEROS [facility]\.br\Date and Time Co-Signed: 04/01/23 18:14 EST 03-10-2023 Note [id number] [facility] 01-09-2023 Note [facility] Comment on above: Result Comment: Elec tronically Signed By: Wil Putnam DO\.br\Date and Time Signed: 01/09/23 11:32 EST 01-07-2023 Note [facility] Comment on above: Result Comment: Elec tronically Signed By: Nettie BOOKER DO\.br\Date and Time Signed: 01/07/23 02:17 EST 08-23-2021 Note MR#: [id number] I [facility] Pt. Name: Meg Georges Admitted: 08/19/2021 Discharged: [...] PEG tube. The patient recently was at [facility] in June for complaint of MSSA septicemia. She was trached at that time. She also was found to have an epidural phlegmon, which was causing compression on the cervicomedullary junction. She was given 6 weeks course of antibiotics for osteomyelitis. She had surgery at [facility] postoperatively here after the packing [...] and transferred back to the ICU at [facility]. The patient was discharged in stable condition. Electronically Signed by: Jerry Pozo MD 08/23/2021 11:13 A Jerry Pozo MD I have reviewed this discharge summary and confirmed the resident's documentation. Please note that there may be additional documentation from me. Date Dict: 08/22/2021/05:19 P/Mai Grier, [facility] Date Trans: 08/23/2021 07:42 A/genaro [id number] cc: Johny Beckman M.D. [address] [place], [place] [address]Fluvannatila Sánchez. Emergency Medicine [facility] [address] Neri Santa D.O. [address] [place] [address] Fernando Loera. [facility] [address] [facility] 08-10-2021 History of Present illness Narrative 08/10/21 [...] Unable to assess Fluid Accumulation: Mild Extremities,Generalized Fish Fryer Strength: Not Performed Nutrition Assessment: Chart reviewed. [...] Anthropometric Measures: Height: 5' 5 (165.1 cm) Byron Body Weight (IBW): 125 lbs (57 kg) [...] Discharge Planning: Too soon to determine VANESSA ARYA [address], [place] Contact: Images from the original note were not included. [facility] -Progress Note Today's Date and Time: [...] of C2 fx noted Infection Control Recommendations [place] Precautions Isolate for Covid until 07-23-21 Antimicrobial [...] through 08-20-21. Patient was transferred back to [facility] on 07-14-21 because of a positive [...] PHLEGMON performed by Alisia Crump DO at [facility] OR CHOLECYSTECTOMY EYE SURGERY [address] shunt for open angle glaucoma. MRI compatible- device is all silicone LAMINECTOMY 07/06/2021 Posterior C1, LEFT C2 RHIZOTOMY, EXPLORATION OF EPIDURAL PHLEGMON PICC INSERTION VASCULAR ACCESS TEAM 07/10/2021 SHOULDER SURGERY right TRACHEOSTOMY 07/30/2021 TRACHEOSTOMY N/A 07/30/2021 TRACHEOTOMY performed by Erica Santiago MD at [facility] OR UPPER GASTROINTESTINAL ENDOSCOPY N/A 07/02/2021 EGD ESOPHAGOGASTRODUODENOSCOPY performed by Hari Wagner MD at [facility] Endoscopy Medications: insulin glargine 10 Units [...] Friends and Family: Not on file Attends Denominational Services: Not on file Active Member of [...] extension (from neutral), as above. Medical Decision [id number]-Uylyg: SARS-CoV-2, Rapid COVID-19, Rapid Collected: 07/13/21 [id number] Result status: Final Resulting lab: [facility] Reference range: Not Detected Value: DETECTED [...] this assay. Fact sheet for Healthcare Providers: https://www.fda.gov/media/278827/downl oad Fact sheet for Patients: https://www.fda.gov/media/986374/downl oad Methodology: Isothermal Nucleic Acid Amplification Culture, Respiratory Order: [id number] Status: Final result Visible to patient: No [...] Abnormal Culture NO NORMAL ROB Resulting Agency [facility] - [facility] Susceptibility Klebsiella aerogenes (1) Antibiotic [...] Patient's name: Meg Georges Patient's account/billing number: [id number] Patient's Date of : 1965 Age: 56 [...] patient was sent to the ED in [facility] from outpatient infusion center where she [...] Date 08/10/21 0000 - 08/10/21 2359 Shift [id number] 2419-9109 2430-4026 24 Hour Total INTAKE I.V.(mL/kg) 169(2.9) 169(2.9) [...] Results Component Value Date PHART 7.406 07/06/2021 [id number] 34.8 07/06/2021 PO2ART 279.0 07/06/2021 [id number] 21.4 07/06/2021 [id number] 99.4 07/06/2021 FIO2 30.0 08/05/2021 Lactic Acid: [...] No results for input(s): LABIRON, TIBC, FERRITIN, EQZQZQHE62, FOLATE, OCCULTBLD in the last 72 hours. [...] MD Department of Internal Medicine/ Critical care [facility]) 08/10/2021, 7:54 AM Attending Physician Statement I [...] this chart was generated using voice recognition Reviv[employer] dictation software. Although every effort was made to ensure the accuracy of this automated gun club manager, some errors in gun club manager may have occurred. PALLIATIVE CARE NURSING ASSESSMENT Patient: Meg Georges Room: [facility] [place] [address] Reason For Consult Goals of care evaluation Distress management Guidance and support Facilitate communications Assistance in coordinating care Code Status: Full Code Summary: Pt visit, stable on cpap trial. Awaiting placement to [facility]. Spoke with COURTNEY Santamaria 08/10/21. I gave her suggestions on how to locate Living Will/ Will information. Discussed code classifications again. She confirms understanding and thinks her sister would want to remain full code. Acknowledged and supported Hina in this decision as well as moving forward with transfer to [facility]. Encouraged her to call as needed. Impression: [...] is aware of plan to move to [facility] when bed available. She was told her [...] Hina relates patient filled out DPOAH at [facility] in [place]. I suggested that she continue to try to contact Meg's combine inspector but that she could contact [facility] and see if they have Living will [...] Supported sister in this, discussed transfer to [facility] soon as bed is available. Wished patient and family well moving forward. Hand Alterations Seamstress Leeann UREÑA, RN, ONN-CG [place] Office: [phone] [place] Office: [phone] [facility] Office: [phone] For Symptom Management Clinic scheduling please call [phone] Images from the original note were not included. [facility] -Progress Note Today's Date and Time: [...] of C2 fx noted Infection Control Recommendations [place] Precautions Isolate for Covid until 07-23-21 Antimicrobial [...] Osteomyelitis cervical spine History of Present Illness: eMg Georges is a 56 y.o.-year-old female who [...] through 08-20-21. Patient was transferred back to [facility] on 07-14-21 because of a positive [...] PHLEGMON performed by Alisia Crump DO at [facility] OR CHOLECYSTECTOMY EYE SURGERY [address] shunt for open angle glaucoma. MRI compatible- device is all silicone LAMINECTOMY 07/06/2021 Posterior C1, LEFT C2 RHIZOTOMY, EXPLORATION OF EPIDURAL PHLEGMON PICC INSERTION VASCULAR ACCESS TEAM 07/10/2021 SHOULDER SURGERY right TRACHEOSTOMY 07/30/2021 TRACHEOSTOMY N/A 07/30/2021 TRACHEOTOMY performed by Erica Santiago MD at [facility] OR UPPER GASTROINTESTINAL ENDOSCOPY N/A 07/02/2021 EGD ESOPHAGOGASTRODUODENOSCOPY performed by Hari Wagner MD at [facility] Endoscopy Medications: QUEtiapine 25 mg Oral [...] Friends and Family: Not on file Attends Denominational Services: Not on file Active Member of [...] extension (from neutral), as above. Medical Decision Wrhftv-Cmkkwzzk-Ozpeh: SARS-CoV-2, Rapid COVID-19, Rapid Collected: 07/13/21 9542 Result status: Final Resulting lab: [facility] Reference range: Not Detected Value: DETECTED [...] this assay. Fact sheet for Healthcare Providers: https://www.fda.gov/media/976620/downl oad Fact sheet for Patients: https://www.fda.gov/media/045331/downl oad Methodology: Isothermal Nucleic Acid Amplification Culture, Respiratory Order: [id number] Status: Final result Visible to patient: No (not released) Next appt: Today at 02:30 PM in Radiology (STV MRI RM 1 (1.5T)) Specimen Information: Sputum Aspirated 0 Result Notes Component 07/24/21 0502 Specimen Description .ASPIRATED SPUTUM Direct Exam < 10 EPITHELIAL CELLS/LPF Direct Exam >25 NEUTROPHILS/LPF Direct Exam MANY GRAM NEGATIVE RODS Abnormal Culture KLEBSIELLA AEROGENES HEAVY GROWTH Abnormal Culture NO NORMAL ROB Resulting Agency [facility] - [place] Susceptibility Klebsiella aerogenes (1) Antibiotic [...] Patient's name: Meg Georges Patient's account/billing number: [id number] Patient's Date of : 1965 Age: 56 [...] patient was sent to the ED in [facility] from outpatient infusion center where she [...] Date 08/09/21 0000 - 08/09/21 2359 Shift [id number] 0859-8150 24 Hour Total INTAKE I.V.(mL/kg) 191(3.2) 191(3.2) [...] Results Component Value Date PHART 7.406 07/06/2021 ZQG4UPG 34.8 07/06/2021 PO2ART 279.0 07/06/2021 NKC4UWB 21.4 07/06/2021 Z1OTBXHP 99.4 07/06/2021 FIO2 30.0 08/05/2021 Lactic Acid: [...] No results for input(s): LABIRON, TIBC, FERRITIN, EXGFZKFU01, FOLATE, OCCULTBLD in the last 72 hours. [...] MD Department of Internal Medicine/ Critical care [facility]) 08/09/2021, 8:12 AM Attending Physician Statement [...] this chart was generated using voice recognition Revivioon dictation software. Although every effort was made to ensure the accuracy of this automated gun club manager, some errors in gun club manager may have occurred. Physical Therapy Facility/Department: [facility] CAR 3 Physical Therapy Initial Assessment [...] patient was sent to the ED in [facility] from outpatient infusion center where she [...] Commands: Impaired Other (Comment): intermittant, appeared to chief engineer research R hand to commands, appeared to try [...] not included. [facility] -Progress Note Today's Date and Time: [...] of C2 fx noted Infection Control Recommendations [place] Precautions Isolate for Covid until 07-23-21 Antimicrobial [...] through 08-20-21. Patient was transferred back to [facility] on 07-14-21 because of a positive [...] PHLEGMON performed by Alisia Crump DO at [facility] OR CHOLECYSTECTOMY EYE SURGERY [address] shunt for open angle glaucoma. MRI compatible- device is all silicone LAMINECTOMY 07/06/2021 Posterior C1, LEFT C2 RHIZOTOMY, EXPLORATION OF EPIDURAL PHLEGMON PICC INSERTION VASCULAR ACCESS TEAM 07/10/2021 SHOULDER SURGERY right TRACHEOSTOMY 07/30/2021 TRACHEOSTOMY N/A 07/30/2021 TRACHEOTOMY performed by Erica Santiago MD at [facility] OR UPPER GASTROINTESTINAL ENDOSCOPY N/A 07/02/2021 EGD ESOPHAGOGASTRODUODENOSCOPY performed by Hari Wagner MD at [facility] Endoscopy Medications: QUEtiapine 50 mg Oral [...] Friends and Family: Not on file Attends Denominational Services: Not on file Active Member of [...] extension (from neutral), as above. Medical Decision Wjfrqa-Jcmqcpit-Yonfr: SARS-CoV-2, Rapid COVID-19, Rapid Collected: 07/13/21 7164 Result status: Final Resulting lab: [facility] Reference range: Not Detected [...] this assay. Fact sheet for Healthcare Providers: https://www.fda.gov/media/503775/downl oad Fact sheet for Patients: https://www.fda.gov/media/982856/downl oad Methodology: Isothermal Nucleic Acid Amplification Culture, Respiratory Order: [id number] Status: Final result Visible to patient: No (not released) Next appt: Today at 02:30 PM in Radiology (STV MRI RM 1 (1.5T)) Specimen Information: Sputum Aspirated 0 Result Notes Component 07/24/21 8544 Specimen Description .ASPIRATED SPUTUM Direct Exam < 10 EPITHELIAL CELLS/LPF Direct Exam >25 NEUTROPHILS/LPF Direct Exam MANY GRAM NEGATIVE RODS Abnormal Culture KLEBSIELLA AEROGENES HEAVY GROWTH Abnormal Culture NO NORMAL ROB Resulting Agency crossvert[employer] - [facility] Susceptibility Klebsiella aerogenes (1) Antibiotic [...] patient. Please call with questions. Jany Francis, FUR FINISHER - HOG TENDER ATTESTATION: I have discussed the case, including pertinent history and exam findings with the FUR FINISHER. I have evaluated the History, physical findings and pictures of the patient and the coffey elements of the encounter have been performed by me. I have reviewed the laboratory data, other diagnostic studies and discussed them with the FUR FINISHER. I have updated the medical record where necessary. I agree with the assessment, plan and orders as documented by the FUR FINISHER. Seth Stokes MD. Critical Care Team - Daily Progress Note Date and time: 08/08/2021 7:18 AM Patient's name: Meg Georges Patient's account/billing number: [id number] Patient's Date of : 1965 Age: 56 [...] patient was sent to the ED in [facility] from outpatient infusion center where she [...] Date 08/08/21 0000 - 08/08/21 2359 Shift [id number] 9284-0036 4585-9184 24 Hour Total INTAKE I.V.(mL/kg) 196.4(3.3) 196.4(3.3) [...] Humidification Source: HME Cuff Pressure (cm H2O): (barrel filler) Skin Barrier Applied: (Mepilex placed after trach change) Lab Results Component Value Date PHART 7.406 07/06/2021 KBH0TBZ 34.8 07/06/2021 PO2ART 279.0 07/06/2021 IIA1VYC 21.4 07/06/2021 E7NJTQYB 99.4 07/06/2021 FIO2 30.0 08/05/2021 Lactic Acid: [...] No results for input(s): LABIRON, TIBC, FERRITIN, RDOXBMCM85, FOLATE, OCCULTBLD in the last 72 hours. [...] MD Department of Internal Medicine/ Critical care [facility]) 08/08/2021, 7:18 AM Attending Physician Statement [...] this chart was generated using voice recognition OneBuck[employer]ume dictation software. Although every effort was made to ensure the accuracy of this automated gun club manager, some errors in gun club manager may have occurred. Neurosurgery attending Supervised passive [...] Anthropometric Measures: Height: 5' 5 (165.1 cm) [place] Body Weight (IBW): 125 lbs (57 kg) [...] CARE NURSING ASSESSMENT Patient: Meg Georges Room: [address] [place] [address] Reason For Consult Goals of care evaluation [...] Encephalitis Encephalopathy CIDP (chronic inflammatory demyelinating polyneuropathy) ([facility]) Sepsis (HCC) Bacteremia Hypothyroidism Hypokalemia Type 2 diabetes mellitus with diabetic polyneuropathy ([facility]) Primary hypertension Upper GI bleed Non-intractable vomiting Unintentional weight loss Metabolic encephalopathy MSSA (methicillin susceptible Staphylococcus aureus) septicemia ([facility]) CRP elevated Bandemia Allergy to multiple antibiotics [...] know that I will be rounding at [facility] all week. Goals/Plan of care [...] to call us as needed. Update given. Hand Alterations Seamstress Leeann UREÑA, RN, ONN-CG [place] Office: [phone] [place] Office: [phone] [facility] Office: [phone] For Symptom Management Clinic scheduling please call [phone] Images from the original note were not included. [facility] -Progress Note Today's Date and Time: [...] prior to surgical intervention. Infection Control Recommendations [place] Precautions Isolate for Covid until 07-23-21 Antimicrobial [...] through 08-20-21. Patient was transferred back to [facility] on 07-14-21 because of a positive [...] PHLEGMON performed by Alisia Crump DO at [facility] OR CHOLECYSTECTOMY EYE SURGERY [address] shunt for open angle glaucoma. MRI compatible- device is all silicone LAMINECTOMY 07/06/2021 Posterior C1, LEFT C2 RHIZOTOMY, EXPLORATION OF EPIDURAL PHLEGMON PICC INSERTION VASCULAR ACCESS TEAM 07/10/2021 SHOULDER SURGERY right TRACHEOSTOMY 07/30/2021 TRACHEOSTOMY N/A 07/30/2021 TRACHEOTOMY performed by Erica Santiago MD at [facility] OR UPPER GASTROINTESTINAL ENDOSCOPY N/A 07/02/2021 EGD ESOPHAGOGASTRODUODENOSCOPY performed by Hari Wagner MD at [facility] Endoscopy Medications: QUEtiapine 25 mg Oral [...] Friends and Family: Not on file Attends Denominational Services: Not on file Active Member of [...] Decision Making-Imaging: No new imaging Medical Decision Ciyypr-Dfyeveox-Yyake: SARS-CoV-2, Rapid COVID-19, Rapid Collected: 07/13/21 6088 Result status: Final Resulting lab: [facility] Reference range: Not Detected Value: DETECTED [...] this assay. Fact sheet for Healthcare Providers: https://www.fda.gov/media/046263/downl oad Fact sheet for Patients: https://www.fda.gov/media/219127/downl oad Methodology: Isothermal Nucleic Acid Amplification Culture, Respiratory Order: [id number] Status: Final result Visible to patient: No (not released) Next appt: Today at 02:30 PM in Radiology (STV MRI RM 1 (1.5T)) Specimen Information: Sputum Aspirated 0 Result Notes Component 07/24/21 4835 Specimen Description .ASPIRATED SPUTUM Direct Exam < 10 EPITHELIAL CELLS/LPF Direct Exam >25 NEUTROPHILS/LPF Direct Exam MANY GRAM NEGATIVE RODS Abnormal Culture KLEBSIELLA AEROGENES HEAVY GROWTH Abnormal Culture NO NORMAL ROB Resulting Agency [facility] Susceptibility Klebsiella aerogenes (1) Antibiotic [...] Patient's name: Meg Georges Patient's account/billing number: [id number] Patient's Date of : 1965 Age: 56 [...] patient was sent to the ED in [facility] from outpatient infusion center where she [...] Date 08/07/21 0000 - 08/07/21 2359 Shift [id number] 7977-7762 0229-9860 24 Hour Total INTAKE I.V.(mL/kg) 382.5(6.4) 382.5(6.4) [...] Humidification Source: HME Cuff Pressure (cm H2O): (barrel filler) Skin Barrier Applied: (Mepilex placed after trach change) Lab Results Component Value Date PHART 7.406 07/06/2021 VKA9PGV 34.8 07/06/2021 PO2ART 279.0 07/06/2021 ZAE9NQT 21.4 07/06/2021 B5CRJPQO 99.4 07/06/2021 FIO2 30.0 08/05/2021 Lactic Acid: [...] No results for input(s): LABIRON, TIBC, FERRITIN, SQUQAFKZ95, FOLATE, OCCULTBLD in the last 72 hours. [...] MD Department of Internal Medicine/ Critical care [facility]) 08/07/2021, 7:58 AM Attending Physician Statement [...] this chart was generated using voice recognition [employer]Buck[employer]ume dictation software. Although every effort was made to ensure the accuracy of this automated gun club manager, some errors in gun club manager may have occurred. Neurosurgery NATE/Resident Daily Progress [...] with the NATE/Resident except with following addendum: Supervised passive flexion [...] tentatively on 08/22 Beatriz Crump DO Neurosurgeon [place] reconsult Meg Georges is a 56 [...] No results for input(s): LABIRON, TIBC, FERRITIN, BGJDMLWZ52, FOLATE, OCCULTBLD in the last 72 hours. [...] or concerns. Valery Quinteros PGY-1 Internal Medicine [place], [place] 3:59 PM 08/06/2021 Associated attestation - [...] with appropriate modifications. Leigh Mcintosh MD Gastroenterology [place], [place] Images from the original note were not included. [facility] -Progress Note Today's Date and Time: [...] prior to surgical intervention. Infection Control Recommendations [place] Precautions Isolate for Covid until 07-23-21 Antimicrobial [...] through 08-20-21. Patient was transferred back to [facility] on 07-14-21 because of a positive [...] PHLEGMON performed by Alisia Crump DO at [facility] OR CHOLECYSTECTOMY EYE SURGERY [address] shunt for open angle glaucoma. MRI compatible- device is all silicone LAMINECTOMY 07/06/2021 Posterior C1, LEFT C2 RHIZOTOMY, EXPLORATION OF EPIDURAL PHLEGMON PICC INSERTION VASCULAR ACCESS TEAM 07/10/2021 SHOULDER SURGERY right TRACHEOSTOMY 07/30/2021 TRACHEOSTOMY N/A 07/30/2021 TRACHEOTOMY performed by Erica Santiago MD at [facility] OR UPPER GASTROINTESTINAL ENDOSCOPY N/A 07/02/2021 EGD ESOPHAGOGASTRODUODENOSCOPY performed by Hari Wagner MD at [facility] Endoscopy Medications: insulin glargine 15 Units [...] Friends and Family: Not on file Attends Denominational Services: Not on file Active Member of [...] Decision Making-Imaging: No new imaging Medical Decision Esphtl-Eqxbgtsa-Sqhex: SARS-CoV-2, Rapid COVID-19, Rapid Collected: 07/13/21 3178 Result status: Final Resulting lab: [employer] [place] [facility] Reference range: Not Detected [...] this assay. Fact sheet for Healthcare Providers: https://www.fda.gov/media/910028/downl oad Fact sheet for Patients: https://www.fda.gov/media/078534/downl oad Methodology: Isothermal Nucleic Acid Amplification Culture, Respiratory Order: [id number] Status: Final result Visible to patient: No (not released) Next appt: Today at 02:30 PM in Radiology (STV MRI RM 1 (1.5T)) Specimen Information: Sputum Aspirated 0 Result Notes Component 07/24/21 7386 Specimen Description .ASPIRATED SPUTUM Direct Exam < 10 EPITHELIAL CELLS/LPF Direct Exam >25 NEUTROPHILS/LPF Direct Exam MANY GRAM NEGATIVE RODS Abnormal Culture KLEBSIELLA AEROGENES HEAVY GROWTH Abnormal Culture NO NORMAL ROB Resulting Agency [employer] - [facility] Susceptibility Klebsiella aerogenes (1) Antibiotic [...] patient. Please call with questions. Jany Francis, FUR FINISHER - HOG TENDER ATTESTATION: I have discussed the case, including pertinent history and exam findings with the FUR FINISHER. I have evaluated the History, physical findings and pictures of the patient and the coffey elements of the encounter have been performed by me. I have reviewed the laboratory data, other diagnostic studies and discussed them with the FUR FINISHER. I have updated the medical record where necessary. I agree with the assessment, plan and orders as documented by the FUR FINISHER. Seth Stokes MD. Critical Care Team - Daily Progress Note Date and time: 08/06/2021 7:27 AM Patient's name: Meg Georges Patient's account/billing number: [id number] Patient's Date of : 1965 Age: 56 [...] patient was sent to the ED in [facility] from outpatient infusion center where she [...] Date 08/06/21 0000 - 08/06/21 2359 Shift [id number] 0673-0595 6733-2280 24 Hour Total INTAKE I.V.(mL/kg) 244.5(4) 244.5(4) [...] Results Component Value Date PHART 7.406 07/06/2021 BUN9DPH 34.8 07/06/2021 PO2ART 279.0 07/06/2021 PKC3NIA 21.4 07/06/2021 H5EZHDCY 99.4 07/06/2021 FIO2 30.0 08/05/2021 Lactic Acid: [...] No results for input(s): LABIRON, TIBC, FERRITIN, JWXTEJJG67, FOLATE, OCCULTBLD in the last 72 hours. [...] MD Department of Internal Medicine/ Critical care [facility]) 08/06/2021, 7:27 AM Attending Physician Statement [...] this chart was generated using voice recognition [employer]ume dictation software. Although every effort was made to ensure the accuracy of this automated gun club manager, some errors in gun club manager may have occurred. Images from the original note were not included. Critical Care Team - Daily Progress Note Date and time: 08/05/2021 1:52 PM Patient's name: Meg Barton Patient's account/billing number: [id number] Patient's Date of : 1965 Age: 56 [...] degree Ulcer prophylaxis: [] PPI Agent, [x] J3Hdfeu, [] Sucralfate, [] Other: Glycemic control: Controlled [...] patient was sent to the ED in [facility] from outpatient infusion center where she [...] Date 08/05/21 0000 - 08/05/21 2359 Shift [id number] 5675-4293 9833-9380 24 Hour Total INTAKE I.V.(mL/kg) 223.2(3.5) 86.6(1.4) [...] % End Tidal CO2: 32 (%) Position: Semi-Ismon's Humidification Source: HME Skin Barrier Applied: (Mepilex placed after trach change) Lab Results Component Value Date PHART 7.406 07/06/2021 RZF1SOJ 34.8 07/06/2021 PO2ART 279.0 07/06/2021 RUV2SFZ 21.4 07/06/2021 F3KWJMTD 99.4 07/06/2021 FIO2 30.0 08/05/2021 Lactic Acid: [...] No results for input(s): LABIRON, TIBC, FERRITIN, UJGEJLRV38, FOLATE, OCCULTBLD in the last 72 hours. [...] MD Department of Internal Medicine/ Critical care [facility]) 08/05/2021, 1:52 PM Associated attestation - Aniket Padron MD - 08/05/2021 4:24 PM EDT Attending Physician Statement I have discussed the case of Meg Georges, including pertinent history and exam findings with the resident/fellow/medical student/SUPERVISOR DETASSELING CREW/PA. I have seen and examined the patient and the coffey elements of the encounter have been performed by me. I agree with the assessment, plan and orders as documented by the resident/fellow/medical student/SUPERVISOR DETASSELING CREW/PA With changes made to the note as [...] not included. [facility] -Progress Note Today's Date and Time: [...] placed 07/30/21 per ENT Infection Control Recommendations [place] Precautions Isolate for Covid until 07-23-21 Antimicrobial [...] through 08-20-21. Patient was transferred back to [facility] on 07-14-21 because of a positive [...] PHLEGMON performed by Alisia Crump DO at [facility] OR CHOLECYSTECTOMY EYE SURGERY [address] shunt for open angle glaucoma. MRI compatible- device is all silicone LAMINECTOMY 07/06/2021 Posterior C1, LEFT C2 RHIZOTOMY, EXPLORATION OF EPIDURAL PHLEGMON PICC INSERTION VASCULAR ACCESS TEAM 07/10/2021 SHOULDER SURGERY right TRACHEOSTOMY 07/30/2021 TRACHEOSTOMY N/A 07/30/2021 TRACHEOTOMY performed by Erica aSntiago MD at [facility] OR UPPER GASTROINTESTINAL ENDOSCOPY N/A 07/02/2021 EGD ESOPHAGOGASTRODUODENOSCOPY performed by Hari Wagner MD at [facility] Endoscopy Medications: insulin glargine 20 Units [...] Friends and Family: Not on file Attends Denominational Services: Not on file Active Member of [...] Decision Making-Imaging: No new imaging Medical Decision Ggpqgz-Tlcokwfq-Nrhca: SARS-CoV-2, Rapid COVID-19, Rapid Collected: 07/13/21 7583 Result status: Final Resulting lab: [employer] [facility] Reference range: Not Detected Value: DETECTED [...] this assay. Fact sheet for Healthcare Providers: https://www.fda.gov/media/821899/downl oad Fact sheet for Patients: https://www.fda.gov/media/463193/downl oad Methodology: Isothermal Nucleic Acid Amplification Culture, Respiratory Order: [id number] Status: Final result Visible to patient: No (not released) Next appt: Today at 02:30 PM in Radiology (STV MRI RM 1 (1.5T)) Specimen Information: Sputum Aspirated 0 Result Notes Component 07/24/21 2061 Specimen Description .ASPIRATED SPUTUM Direct Exam < 10 EPITHELIAL CELLS/LPF Direct Exam >25 NEUTROPHILS/LPF Direct Exam MANY GRAM NEGATIVE RODS Abnormal Culture KLEBSIELLA AEROGENES HEAVY GROWTH Abnormal Culture NO NORMAL ROB Resulting Agency [employer] - [facility] Susceptibility Klebsiella aerogenes (1) Antibiotic [...] not included. [facility] -Progress Note Today's Date and Time: [...] placed 07/30/21 per ENT Infection Control Recommendations [place] Precautions Isolate for Covid until 07-23-21 Antimicrobial [...] through 08-20-21. Patient was transferred back to [facility] on 07-14-21 because of a positive [...] PHLEGMON performed by Alisia Crump DO at [facility] OR CHOLECYSTECTOMY EYE SURGERY [address] shunt for open angle glaucoma. MRI compatible- device is all silicone LAMINECTOMY 07/06/2021 Posterior C1, LEFT C2 RHIZOTOMY, EXPLORATION OF EPIDURAL PHLEGMON PICC INSERTION VASCULAR ACCESS TEAM 07/10/2021 SHOULDER SURGERY right TRACHEOSTOMY 07/30/2021 TRACHEOSTOMY N/A 07/30/2021 TRACHEOTOMY performed by Erica Santiago MD at [facility] OR UPPER GASTROINTESTINAL ENDOSCOPY N/A 07/02/2021 EGD ESOPHAGOGASTRODUODENOSCOPY performed by Hari Wagner MD at [facility] Endoscopy Medications: insulin glargine 20 Units [...] Friends and Family: Not on file Attends Denominational Services: Not on file Active Member of [...] Decision Making-Imaging: No new imaging Medical Decision Ubjfkp-Genllxqi-Jbrks: SARS-CoV-2, Rapid COVID-19, Rapid Collected: 07/13/21 8894 Result status: Final Resulting lab: [facility] Reference range: Not Detected Value: DETECTED [...] this assay. Fact sheet for Healthcare Providers: https://www.fda.gov/media/853282/downl oad Fact sheet for Patients: https://www.fda.gov/media/192560/downl oad Methodology: Isothermal Nucleic Acid Amplification Culture, Respiratory Order: [id number] Status: Final result Visible to patient: No (not released) Next appt: Today at 02:30 PM in Radiology (STV MRI RM 1 (1.5T)) Specimen Information: Sputum Aspirated 0 Result Notes Component 07/24/21 6538 Specimen Description .ASPIRATED SPUTUM Direct Exam < 10 EPITHELIAL CELLS/LPF Direct Exam >25 NEUTROPHILS/LPF Direct Exam MANY GRAM NEGATIVE RODS Abnormal Culture KLEBSIELLA AEROGENES HEAVY GROWTH Abnormal Culture NO NORMAL ROB [facility] [place] Susceptibility Klebsiella aerogenes [...] PHLEGMON performed by Alisia Crump DO at [facility] OR CHOLECYSTECTOMY EYE SURGERY [address] shunt for open angle glaucoma. MRI compatible- device is all silicone LAMINECTOMY 07/06/2021 Posterior C1, LEFT C2 RHIZOTOMY, EXPLORATION OF EPIDURAL PHLEGMON PICC INSERTION VASCULAR ACCESS TEAM 07/10/2021 SHOULDER SURGERY right TRACHEOSTOMY 07/30/2021 TRACHEOSTOMY N/A 07/30/2021 TRACHEOTOMY performed by Erica Santiago MD at [facility] OR UPPER GASTROINTESTINAL ENDOSCOPY N/A 07/02/2021 EGD ESOPHAGOGASTRODUODENOSCOPY performed by Hari Wagner MD at [facility] Endoscopy FAMILY HISTORY Family History Problem [...] in the care of Ms. Georges . [facility] Palliative Care Number [phone] [facility] Palliative Care Number [phone] [facility] Palliative Care Number [phone] Please call with any palliative questions or [...] capsule 1 capsule Oral Daily with breakfast Chris Lassiter MD 1 capsule at 07/24/21 0906 [...] 1 mg 1 mg IntraMUSCular PRN Adilson Coyle MD dextrose 5 % solution 100 mL/hr [...] provider in [facility]. Follow-up: Your follow up appointment can be [...] and Dr. Angel Krueger [address] [facility] [address] OPTION 2: [facility] ENT [address] [place] [address] Appointment scheduling: ISRRAEL MCGRATH MD Pediatric Otolaryngology-Head and Neck Surgery [facility] Otolaryngology group Office ph# [phone] Also available in COCCve Pt trach changed without incident, #7.0 XLT, per Dr. Mcgrath. Trach site red, Mepilex to be placed. Pt tolerated well. Images from the original note were not included. Critical Care Team - Daily Progress Note Date and time: 08/04/2021 8:43 AM Patient's name: Meg Georges Patient's account/billing number: [id number] Patient's Date of : 1965 Age: 56 [...] no Ulcer prophylaxis: [x] PPI Agent, [] T1Rsvop, [] Sucralfate, [] Other: Glycemic control: controlled; [...] patient was sent to the ED in [facility] from outpatient infusion center where she [...] INTUBATED, ET TUBE MARKING AT LOWER LIP: [facility] SEDATION: Precedex gtt [] Propofol gtt [] [...] Date 08/04/21 0000 - 08/04/21 2359 Shift 4133-7768 7635-4711 4292-2813 24 Hour Total INTAKE I.V.(mL/kg) 376.1(6) 376.1(6) [...] CO2: 37 (%) Position: Semi-Simon's Humidification Source: [facility] Results Component Value Date PHART 7.406 07/06/2021 TJH3WZE 34.8 07/06/2021 PO2ART 279.0 07/06/2021 OYT1PYW 21.4 07/06/2021 X8NKFORQ 99.4 07/06/2021 FIO2 30.0 08/03/2021 Lactic Acid: [...] No results for input(s): LABIRON, TIBC, FERRITIN, GVIBSDLS99, FOLATE, OCCULTBLD in the last 72 hours. [...] clinical course CODE STATUS: Full Code Courtney Seaamn MD Department of Internal Medicine/ Critical care [facility]) 08/04/2021, 8:43 AM Associated attestation - Aniket Padron MD - 08/04/2021 1:39 PM EDT Attending Physician Statement I have discussed the case of Meg Georges, including pertinent history and exam findings with the resident/fellow/medical student/SUPERVISOR DETASSELING CREW/PA. I have seen and examined the patient and the coffey elements of the encounter have been performed by me. I agree with the assessment, plan and orders as documented by the resident/fellow/medical student/SUPERVISOR DETASSELING CREW/PA With changes made to the note as [...] Status: At risk for malnutrition (Comment) (07/30/21 6105) Context: Acute Illness Findings of the 6 clinical characteristics of malnutrition: Energy Intake: No significant decrease in energy intake (with use of TF) Weight Loss: No significant weight loss Body Fat Loss: No significant body fat loss Muscle Mass Loss: Unable to assess Fluid Accumulation: Mild Extremities,Generalized Fish Fryer Strength: Not Performed Nutrition Assessment: Remains intubated [...] Anthropometric Measures: Height: 5' 5 (165.1 cm) Byron Body Weight (IBW): 125 lbs (57 kg) Admission Body Weight: 133 lb 13.1 oz (60.7 kg) Current Body Weight: 137 lb 9.2 oz (62.4 kg) [facility] 110.1 % IBW. Weight Source: Bed Scale [...] determine Ashwini Felix MS, RD, LD Contact: [id number] Otolaryngology staff note POD 4 s/p tracheostomy placement Patient was seen and examined this morning On vent, sedated, though weaning 7.0 Shiley XLT cuffed, in good position. Some dried blood around trach but there is no peristomal wound breakdown c-collar still in place Plan for trach change on POD 5 (Friday08/04/21) REBEKA Wills CNP Pediatric Otolaryngology-Head and Neck Surgery [facility] Otolaryngology group Office ph# [phone] Also available in COCCve Images from the original note were not included. [facility] -Progress Note Today's Date and Time: [...] placed 07/30/21 per ENT Infection Control Recommendations [place] Precautions Isolate for Covid until 07-23-21 Antimicrobial [...] through 08-20-21. Patient was transferred back to [facility] on 07-14-21 because of a positive [...] PHLEGMON performed by Alisia Crump DO at [facility] OR CHOLECYSTECTOMY EYE SURGERY [address] shunt for open angle glaucoma. MRI compatible- device is all silicone LAMINECTOMY 07/06/2021 Posterior C1, LEFT C2 RHIZOTOMY, EXPLORATION OF EPIDURAL PHLEGMON PICC INSERTION VASCULAR ACCESS TEAM 07/10/2021 SHOULDER SURGERY right TRACHEOSTOMY 07/30/2021 TRACHEOSTOMY N/A 07/30/2021 TRACHEOTOMY performed by Erica Santiago MD at [facility] OR UPPER GASTROINTESTINAL ENDOSCOPY N/A 07/02/2021 EGD ESOPHAGOGASTRODUODENOSCOPY performed by Hari Wagner MD at [facility] Endoscopy Medications: insulin lispro 0-18 Units [...] Friends and Family: Not on file Attends Denominational Services: Not on file Active Member of [...] are unchanged. Suggest ultrasound correlation. Medical Decision Edbdmf-Nmfwcfbs-Gzgnq: SARS-CoV-2, Rapid COVID-19, Rapid Collected: 07/13/21 4342 Result status: Final Resulting lab: [facility] Reference range: Not Detected Value: DETECTED [...] this assay. Fact sheet for Healthcare Providers: https://www.fda.gov/media/167143/downl oad Fact sheet for Patients: https://www.fda.gov/media/480280/downl oad Methodology: Isothermal Nucleic Acid Amplification Culture, Respiratory Order: [id number] Status: Final result Visible to patient: No [...] Abnormal Culture NO NORMAL ROB Resulting Agency [facility] - [place] Susceptibility Klebsiella aerogenes (1) Antibiotic [...] data were reviewed Discussed with nursing Staff, certified financial planner Infection Control and Prevention measures reviewed All prior entries were reviewed Administer medications as ordered Prognosis: Very Guarded Discharge planning reviewed Follow up as outpatient. Thank you for allowing us to participate in the care of this patient. Please call with questions. Jany Francis, FUR FINISHER - HOG TENDER ATTESTATION: I have discussed the case, including pertinent history and exam findings with the FUR FINISHER. I have evaluated the History, physical findings and pictures of the patient and the coffey elements of the encounter have been performed by me. I have reviewed the laboratory data, other diagnostic studies and discussed them with the FUR FINISHER. I have updated the medical record where necessary. I agree with the assessment, plan and orders as documented by the FUR FINISHER. Seth Stokes MD. Pager: - Office: Images from the original note were not included. Critical Care Team - Daily Progress Note Date and time: 08/03/2021 7:48 AM Patient's name: Meg Georges Patient's account/billing number: [id number] Patient's Date of : 1965 Age: 56 [...] yes Ulcer prophylaxis: [] PPI Agent, [x] C6Oiyaf, [] Sucralfate, [] Other: Glycemic control: high ISS, lantus 16 subq is held Spontaneous breathing trial: trach Bowel regimen/urine output: milk of mag Indwelling catheter/lines: yes De-escalation: yes CURRENT VENTILATION STATUS: [x] Ventilator [] BIPAP [] Nasal Cannula [] Room Air IF INTUBATED, ET TUBE MARKING AT LOWER LIP: [facility] SEDATION: Precedex gtt [] Propofol gtt [] [...] Date 08/03/21 0000 - 08/03/21 2359 Shift 6406-4768 4487-6032 9371-5596 24 Hour Total INTAKE I.V.(mL/kg) 93.8(1.5) 93.8(1.5) [...] Results Component Value Date PHART 7.406 07/06/2021 IRD3IRO 34.8 07/06/2021 PO2ART 279.0 07/06/2021 EDY8AEI 21.4 07/06/2021 P8BMULOX 99.4 07/06/2021 FIO2 30.0 08/03/2021 Lactic Acid: [...] No results for input(s): LABIRON, TIBC, FERRITIN, IEVEENQW18, FOLATE, OCCULTBLD in the last 72 hours. [...] MD Department of Internal Medicine/ Critical care [facility]) 08/03/2021, 7:48 AM Associated attestation - Aniket Padron MD - 08/03/2021 3:44 PM EDT Attending Physician Statement I have discussed the case of Meg Georges, including pertinent history and exam findings with the resident/fellow/medical student/SUPERVISOR DETASSELING CREW/PA. I have seen and examined the patient and the coffey elements of the encounter have been performed by me. I agree with the assessment, plan and orders as documented by the resident/fellow/medical student/SUPERVISOR DETASSELING CREW/PA With changes made to the note as [...] cm^3 Wound Healing % 79 Wound Assessment Dusky;[place]/red;Fibrinous Drainage Amount Scant Drainage Description Serosanguinous Odor [...] Coyle MD Pediatric Otolaryngology-Head and Neck Surgery [facility] Otolaryngology group Office ph# [phone] Also available in PerfectServe Images from the original note were not included. [facility] -Progress Note Today's Date and Time: [...] placed 07/30/21 per ENT Infection Control Recommendations [place] Precautions Isolate for Covid until 07-23-21 Antimicrobial [...] through 08-20-21. Patient was transferred back to [facility] on 07-14-21 because of a positive [...] PHLEGMON performed by Alisia Crump DO at [facility] OR CHOLECYSTECTOMY EYE SURGERY [address] shunt for open angle glaucoma. MRI compatible- device is all silicone LAMINECTOMY 07/06/2021 Posterior C1, LEFT C2 RHIZOTOMY, EXPLORATION OF EPIDURAL PHLEGMON PICC INSERTION VASCULAR ACCESS TEAM 07/10/2021 SHOULDER SURGERY right TRACHEOSTOMY 07/30/2021 TRACHEOSTOMY N/A 07/30/2021 TRACHEOTOMY performed by Erica Santiago MD at [facility] OR UPPER GASTROINTESTINAL ENDOSCOPY N/A 07/02/2021 [...] Friends and Family: Not on file Attends Denominational Services: Not on file Active Member of [...] are unchanged. Suggest ultrasound correlation. Medical Decision Xhygjj-Prcxkqfe-Klkqf: SARS-CoV-2, Rapid COVID-19, Rapid Collected: 07/13/21 9797 Result status: Final Resulting lab: [facility] Reference range: Not Detected Value: DETECTED [...] this assay. Fact sheet for Healthcare Providers: https://www.fda.gov/media/389841/downl oad Fact sheet for Patients: https://www.fda.gov/media/056043/downl oad Methodology: Isothermal Nucleic Acid Amplification Culture, Respiratory Order: [id number] Status: Final result Visible to patient: No (not released) Next appt: Today at 02:30 PM in Radiology (STV MRI RM 1 (1.5T)) Specimen Information: Sputum Aspirated 0 Result Notes Component 07/24/21 3205 Specimen Description .ASPIRATED SPUTUM Direct Exam < 10 EPITHELIAL CELLS/LPF Direct Exam >25 NEUTROPHILS/LPF Direct Exam MANY GRAM NEGATIVE RODS Abnormal Culture KLEBSIELLA AEROGENES HEAVY GROWTH Abnormal Culture NO NORMAL ROB Resulting Agency [facility] - [place] Susceptibility Klebsiella aerogenes (1) Antibiotic [...] data were reviewed Discussed with nursing Staff, certified financial planner Infection Control and Prevention measures reviewed All prior entries were reviewed Administer medications as ordered Prognosis: Very Guarded Discharge planning reviewed Follow up as outpatient. Thank you for allowing us to participate in the care of this patient. Please call with questions. Jany Francis, FUR FINISHER - HOG TENDER ATTESTATION: I have discussed the case, including pertinent history and exam findings with the FUR FINISHER. I have evaluated the History, physical findings and pictures of the patient and the coffey elements of the encounter have been performed by me. I have reviewed the laboratory data, other diagnostic studies and discussed them with the FUR FINISHER. I have updated the medical record where necessary. I agree with the assessment, plan and orders as documented by the FUR FINISHER. Seth Stokes MD. Pager: - Office: Critical Care Team - Daily Progress Note Date and time: 08/02/2021 7:50 AM Patient's name: Meg Barton Patient's account/billing number: [id number] Patient's Date of : 1965 Age: 56 [...] yes Ulcer prophylaxis: [] PPI Agent, [x] G9Exawt, [] Sucralfate, [] Other: Glycemic control: high [...] Date 08/02/21 0000 - 08/02/21 2359 Shift 2418-0000 9393-9443 9891-1815 24 Hour Total INTAKE I.V.(mL/kg) 109.3(1.8) 109.3(1.8) [...] CO2: 32 (%) Position: Semi-Simon's Humidification Source: [facility] Lab Results Component Value Date PHART 7.406 07/06/2021 MCT0SXS 34.8 07/06/2021 PO2ART 279.0 07/06/2021 KYC9SLU 21.4 07/06/2021 H7YXOVMF 99.4 07/06/2021 FIO2 30.0 08/02/2021 Lactic Acid: [...] No results for input(s): LABIRON, TIBC, FERRITIN, DAHCXVIR10, FOLATE, OCCULTBLD in the last 72 hours. [...] MD Department of Internal Medicine/ Critical care [facility]) 08/02/2021, 7:50 AM Associated attestation - Aniket Padron MD - 08/02/2021 4:40 PM EDT Attending Physician Statement I have discussed the case of Meg Georges, including pertinent history and exam findings with the resident/fellow/medical student/SUPERVISOR DETASSELING CREW/PA. I have seen and examined the patient and the coffey elements of the encounter have been performed by me. I agree with the assessment, plan and orders as documented by the resident/fellow/medical student/SUPERVISOR DETASSELING CREW/PA With changes made to the note as [...] Coyle MD Pediatric Otolaryngology-Head and Neck Surgery [facility] Otolaryngology group Office ph# [phone] Also available in COCCve Images from the original note were not [...] will continue to follow. Healthcare power of immigration attorney placed on patient's chart. OVERNIGHT EVENTS: [...] PHLEGMON performed by Alisia Crump DO at [facility] OR CHOLECYSTECTOMY EYE SURGERY [address] shunt for open angle glaucoma. MRI compatible- device is all silicone LAMINECTOMY 07/06/2021 Posterior C1, LEFT C2 RHIZOTOMY, EXPLORATION OF EPIDURAL PHLEGMON PICC INSERTION VASCULAR ACCESS TEAM 07/10/2021 SHOULDER SURGERY right TRACHEOSTOMY 07/30/2021 TRACHEOSTOMY N/A 07/30/2021 TRACHEOTOMY performed by Erica Santiago MD at [facility] OR UPPER GASTROINTESTINAL ENDOSCOPY N/A 07/02/2021 EGD ESOPHAGOGASTRODUODENOSCOPY performed by Hari Wagner MD at [facility] Endoscopy FAMILY HISTORY Family History Problem [...] Active Problems: CIDP (chronic inflammatory demyelinating polyneuropathy) ([facility]) Bacteremia Hypothyroidism Hypokalemia Type 2 diabetes mellitus with diabetic polyneuropathy ([facility]) Primary hypertension Metabolic encephalopathy MSSA (methicillin susceptible Staphylococcus aureus) septicemia ([facility]) CRP elevated Bandemia Septic arthritis of cervical [...] of Ms. Georges . Palliative care number [phone] Please call with any palliative questions or concerns. Palliative Care Team is available via perfect serve or via phone. Images from the original note were not included. [facility] -Progress Note Today's Date and Time: [...] placed 07/30/21 per ENT Infection Control Recommendations [place] Precautions Isolate for Covid until 07-23-21 Antimicrobial [...] through 08-20-21. Patient was transferred back to [facility] on 07-14-21 because of a positive [...] PHLEGMON performed by Alisia Crump DO at [facility] OR CHOLECYSTECTOMY EYE SURGERY [address] shunt for open angle glaucoma. MRI compatible- device is all silicone LAMINECTOMY 07/06/2021 Posterior C1, LEFT C2 RHIZOTOMY, EXPLORATION OF EPIDURAL PHLEGMON PICC INSERTION VASCULAR ACCESS TEAM 07/10/2021 SHOULDER SURGERY right TRACHEOSTOMY 07/30/2021 TRACHEOSTOMY N/A 07/30/2021 TRACHEOTOMY performed by Erica Santiago MD at [facility] OR UPPER GASTROINTESTINAL ENDOSCOPY N/A 07/02/2021 EGD ESOPHAGOGASTRODUODENOSCOPY performed by Hari Wagner MD at [facility] Endoscopy Medications: insulin lispro 0-12 Units [...] Friends and Family: Not on file Attends Denominational Services: Not on file Active Member of [...] are unchanged. Suggest ultrasound correlation. Medical Decision Fwdtdj-Tmmxrpmh-Uycic: SARS-CoV-2, Rapid COVID-19, Rapid Collected: 07/13/21 2674 Result status: Final [facility] Reference range: Not Detected Value: DETECTED [...] this assay. Fact sheet for Healthcare Providers: https://www.fda.gov/media/420272/downl oad Fact sheet for Patients: https://www.fda.gov/media/548637/downl oad Methodology: Isothermal Nucleic Acid Amplification Culture, Respiratory Order: [id number] Status: Final result Visible to patient: No (not released) Next appt: Today at 02:30 PM in Radiology (STV MRI RM 1 (1.5T)) Specimen Information: Sputum Aspirated 0 Result Notes Component 07/24/21 8032 Specimen Description .ASPIRATED SPUTUM Direct Exam < 10 EPITHELIAL CELLS/LPF Direct Exam >25 NEUTROPHILS/LPF Direct Exam MANY GRAM NEGATIVE RODS Abnormal Culture KLEBSIELLA AEROGENES HEAVY GROWTH Abnormal Culture NO NORMAL ROB Resulting Agency [facility] - [place] Susceptibility Klebsiella aerogenes (1) Antibiotic [...] data were reviewed Discussed with nursing Staff, certified financial planner Infection Control and Prevention measures reviewed All prior entries were reviewed Administer medications as ordered Prognosis: Very Guarded Discharge planning reviewed Follow up as outpatient. Thank you for allowing us to participate in the care of this patient. Please call with questions. Jany Francis, FUR FINISHER - HOG TENDER ATTESTATION: I have discussed the case, including pertinent history and exam findings with the FUR FINISHER. I have evaluated the History, physical findings and pictures of the patient and the coffey elements of the encounter have been performed by me. I have reviewed the laboratory data, other diagnostic studies and discussed them with the FUR FINISHER. I have updated the medical record where necessary. I agree with the assessment, plan and orders as documented by the FUR FINISHER. Seth Stokes MD. Pager: - Office: Critical Care Team - Daily Progress Note Date and time: 08/01/2021 8:07 AM Patient's name: Meg Georges Patient's account/billing number: [id number] Patient's Date of : 1965 Age: 56 [...] yes Ulcer prophylaxis: [] PPI Agent, [x] N0Dhvxd, [] Sucralfate, [] Other: Glycemic control: medium [...] Date 08/01/21 0000 - 08/01/21 2359 Shift 5655-3222 6331-8356 9499-3123 24 Hour Total INTAKE I.V.(mL/kg) 159.6(2.6) 159.6(2.6) [...] CO2: 32 (%) Position: Semi-Simon's Humidification Source: [facility] Results Component Value Date PHART 7.406 07/06/2021 FET1CTJ 34.8 07/06/2021 PO2ART 279.0 07/06/2021 BQF2XKT 21.4 07/06/2021 I8YLQZHI 99.4 07/06/2021 FIO2 30.0 07/30/2021 Lactic Acid: [...] No results for input(s): LABIRON, TIBC, FERRITIN, BVHBYULM86, FOLATE, OCCULTBLD in the last 72 hours. [...] MD Department of Internal Medicine/ Critical care [facility]) 08/01/2021, 8:07 AM Associated attestation - Aniket Padron MD - 08/01/2021 7:15 PM EDT Attending Physician Statement I have discussed the case of Meg Georges, including pertinent history and exam findings with the resident/fellow/medical student/SUPERVISOR DETASSELING CREW/PA. I have seen and examined the patient and the coffey elements of the encounter have been performed by me. I agree with the assessment, plan and orders as documented by the resident/fellow/medical student/SUPERVISOR DETASSELING CREW/PA With changes made to the note as [...] not included. [facility] -Progress Note Today's Date and Time: [...] placed 07/30/21 per ENT Infection Control Recommendations [place] Precautions Isolate for Covid until 07-23-21 Antimicrobial [...] through 08-20-21. Patient was transferred back to [facility] on 07-14-21 because of a positive [...] PHLEGMON performed by Alisia Crump DO at [facility] OR CHOLECYSTECTOMY EYE SURGERY [address] shunt for open angle glaucoma. MRI compatible- device is all silicone LAMINECTOMY 07/06/2021 Posterior C1, LEFT C2 RHIZOTOMY, EXPLORATION OF EPIDURAL PHLEGMON PICC INSERTION VASCULAR ACCESS TEAM 07/10/2021 SHOULDER SURGERY right TRACHEOSTOMY 07/30/2021 TRACHEOSTOMY N/A 07/30/2021 TRACHEOTOMY performed by Erica Santiago MD at [facility] OR UPPER GASTROINTESTINAL ENDOSCOPY N/A 07/02/2021 EGD ESOPHAGOGASTRODUODENOSCOPY performed by Hari Wagner MD at [facility] Endoscopy Medications: insulin lispro 0-12 Units [...] Friends and Family: Not on file Attends Denominational Services: Not on file Active Member of [...] are unchanged. Suggest ultrasound correlation. Medical Decision Pbktpt-Lnachmyf-Vmejx: SARS-CoV-2, Rapid COVID-19, Rapid Collected: 07/13/21 4204 Result status: Final Resulting lab: [facility] Reference range: Not Detected Value: DETECTED [...] this assay. Fact sheet for Healthcare Providers: https://www.fda.gov/media/576160/downl oad Fact sheet for Patients: https://www.fda.gov/media/281683/downl oad Methodology: Isothermal Nucleic Acid Amplification Culture, Respiratory Order: [id number] Status: Final result Visible to patient: No (not released) Next appt: Today at 02:30 PM in Radiology (STV MRI RM 1 (1.5T)) Specimen Information: Sputum Aspirated 0 Result Notes Component 07/24/21 2605 Specimen Description .ASPIRATED SPUTUM Direct Exam < 10 EPITHELIAL CELLS/LPF Direct Exam >25 NEUTROPHILS/LPF Direct Exam MANY GRAM NEGATIVE RODS Abnormal Culture KLEBSIELLA AEROGENES HEAVY GROWTH Abnormal Culture NO NORMAL ROB Resulting Agency crossvertise - [place] Susceptibility Klebsiella aerogenes (1) Antibiotic [...] data were reviewed Discussed with nursing Staff, certified financial planner Infection Control and Prevention measures reviewed All prior entries were reviewed Administer medications as ordered Prognosis: Very Guarded Discharge planning reviewed Follow up as outpatient. Thank you for allowing us to participate in the care of this patient. Please call with questions. Jany Francis, FUR FINISHER - HOG TENDER ATTESTATION: I have discussed the case, including pertinent history and exam findings with the FUR FINISHER. I have evaluated the History, physical findings and pictures of the patient and the coffey elements of the encounter have been performed by me. I have reviewed the laboratory data, other diagnostic studies and discussed them with the FUR FINISHER. I have updated the medical record where necessary. I agree with the assessment, plan and orders as documented by the FUR FINISHER. Seth Stokes MD. Pager: - Office: Images from the original note were not included. Occupational Therapy [facility] Occupational Therapy Not Seen Note DATE: [...] 0724 sodium chloride flush 0.9 % inject [facility] Work Phone: 07-19-2021 Hospital Discharge instructions Anna [...] Contact Information Primary Emergency Contact: Hina [facility] Relation: Brother/Sister Past Surgical History: Past Surgical History: Procedure Laterality Date ACHILLES TENDON SURGERY left BACK SURGERY L 4 and 5 1995, 1996 CERVICAL FUSION N/A 07/06/2021 POSTERIOR CERVICAL C1 LAMINECTOMY. LEFT C2 RHIZOTOMY, EXPLORATION OF EPIDURAL PHLEGMON performed by Alisia Crump DO at [facility] OR CHOLECYSTECTOMY EYE SURGERY [address] shunt for open angle glaucoma. MRI compatible- device is all silicone LAMINECTOMY 07/06/2021 Posterior C1, LEFT C2 RHIZOTOMY, EXPLORATION OF EPIDURAL PHLEGMON PICC INSERTION VASCULAR ACCESS TEAM 07/10/2021 SHOULDER SURGERY right TRACHEOSTOMY 07/30/2021 TRACHEOSTOMY N/A 07/30/2021 TRACHEOTOMY performed by Erica Santiago MD at [facility] OR UPPER GASTROINTESTINAL ENDOSCOPY N/A 07/02/2021 EGD ESOPHAGOGASTRODUODENOSCOPY performed by Hari Wagner MD at [facility] Endoscopy Immunization History: There is no immunization history on file for this patient. Active Problems: Patient Active Problem List Diagnosis Code Cellulitis of left finger L03.012 Altered mental state R41.82 Encephalitis G04.90 Encephalopathy G93.40 CIDP (chronic inflammatory demyelinating polyneuropathy) ([facility]) G61.81 Sepsis (HCC) A41.9 Bacteremia R78.81 Hypothyroidism E03.9 Hypokalemia E87.6 Type 2 diabetes mellitus with diabetic polyneuropathy (HCC) E11.42 Primary hypertension I10 Upper GI bleed K92.2 Non-intractable vomiting R11.10 Unintentional weight loss R63.4 Metabolic encephalopathy G93.41 MSSA (methicillin susceptible Staphylococcus aureus) septicemia (HCC) A41.01 CRP elevated R79.82 Bandemia D72.825 Allergy to multiple antibiotics Z88.1 Pyogenic inflammation of bone ([facility]) M86.9 Acute intractable headache R51.9 Septic arthritis of cervical spine ([facility]) M46.52 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 G06.1 COVID U07.1 Hypomagnesemia E83.42 Normocytic anemia D64.9 Acute respiratory failure with hypoxemia ([facility]) J96.01 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 ACP (advance care [...] Dependent Dressing Dependent Toileting Dependent Feeding Dependent Snorkelling Instructor Dependent Med Delivery crushed and via right [...] Healing % 79 08/02/21 1537 Wound Assessment Denuded;[place]/red 08/10/21 1200 Drainage Amount Scant 08/10/21 1200 [...] Readmission: 24 Discharging to Facility/ Agency Name: [facility] Address: [address] [place] [address] Dialysis Facility (if applicable) Name: Address: Dialysis Schedule: Phone: Fax: Production Cell Leader/Die Operator signature: ICIAN SECTION Prognosis: Fair Condition at [...] the diagnosis listed and that she requires [facility] Facility for less 30 days. Update Admission [...] PCP as outpatient. documented in this encounter [employer] Phone: 07-14-2021 History of Present illness Narrative Called and spoke with Jess GARVIN and gave report. Lunch tray provided - puree and thickened liquids. Pt sitting up and eating at this time. Denies further needs. Called and updated sister, Hina with status. Pt accepted to [facility]- bed pending. documented in this encounter [employer] Phone: 07-10-2021 History of Present illness Narrative [...] Urology Speech Language Pathology Speech Language Pathology [facility] Cognitive/Dysphagia Treatment Note Date: 07/10/2021 Patient s Name: Meg Georges Patient Active Problem List Diagnosis Code Cellulitis of left finger L03.012 Altered mental state R41.82 Encephalitis G04.90 Encephalopathy G93.40 CIDP (chronic inflammatory demyelinating polyneuropathy) ([facility]) G61.81 Sepsis ([facility]) A41.9 Bacteremia R78.81 Hypothyroidism E03.9 Hypokalemia E87.6 Type 2 diabetes mellitus with diabetic polyneuropathy ([facility]) E11.42 Primary hypertension I10 Upper GI bleed K92.2 Non-intractable vomiting R11.10 Unintentional weight loss R63.4 Acute metabolic encephalopathy G93.41 MSSA (methicillin susceptible Staphylococcus aureus) septicemia ([facility]) A41.01 CRP elevated R79.82 Bandemia D72.825 Allergy to multiple antibiotics Z88.1 Pyogenic inflammation of bone ([facility]) M86.9 Acute intractable headache R51.9 Acute osteomyelitis of cervical spine ([facility]) M46.22 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 G06.1 Pain: 0/10 Cognitive Treatment Treatment time: 5975-7802 Subjective: [] Alert [x] Cooperative [] Confused [...] recommended at discharge. Completed by Chaitanya Pratt Gis Professor Clinician Co-signed byHina Sawyer M.S. CCC/EDUCATION GENERAL MANAGER Images from the original note were not included. [facility] Internal Medicine Teaching Residency Program Inpatient Daily Progress Note __ Patient: Meg Georges Date of : 1965 Acct: [id number] Room: 0146/0146-01 Admit date: 06/28/2021 Today's date: [...] neuropathy follows neurology. Presented to ED from fdc, found confused outside. Imaging negative. She complains [...] antihypertensives. Elevated troponins: Downtrended likely type II RI Hypokalemia: Repeat potassium level and replace if needed Left Vocal cord paralysis: Ongoing x 1 month. ENT on board. Plan for injection laryngoplasty for voice/swallowing improvement at some point. Passed swallow study. Diet: Easy to chew DVT ppx : Lovenox held GI ppx: None PT/OT/SW: Consulted Discharge Planning: In process Rufus Argueta MD Internal Medicine Resident, PGY- 1 [facility]; [place], [place] 07/10/2021, 7:18 AM Associated attestation - [...] not included. [facility] - Infectious diseases evaluation admission date [...] line due to nafciline Infection Control Recommendations [place] Precautions Contact Isolation Antimicrobial Stewardship Recommendations Simplification of therapy Targeted therapy History of Present Illness: Initial history: Meg Georges is a 56 y.o.-year-old female presented to the ED for altered mental status. Patient is currently admitted under neurology service. Patient presented from a fdc after an episode of confusion overnight where she was found wandering outside her fdc. She had CT head done at outside facility which did not show any acute changes, telestroke was consulted for the concern of confusion, they recommended transfer to [facility] for MRI of the brain. BC SA MSSA and LP neg CRP elevated and WBc up - creat normal 06/29 mentally recovered Neck pain x 1 mo Left sole callus [facility] She gets her IvIg through a periph [...] PHLEGMON performed by Alisia Crump DO at [facility] OR CHOLECYSTECTOMY EYE SURGERY [address] shunt for open angle glaucoma. MRI compatible- device is all silicone LAMINECTOMY 07/06/2021 Posterior C1, LEFT C2 RHIZOTOMY, EXPLORATION OF EPIDURAL PHLEGMON SHOULDER SURGERY right UPPER GASTROINTESTINAL ENDOSCOPY N/A 07/02/2021 EGD ESOPHAGOGASTRODUODENOSCOPY performed by Hari Wagner MD at [facility] Endoscopy Medications: levothyroxine 100 mcg Oral [...] Friends and Family: Not on file Attends Denominational Services: Not on file Active Member of [...] Crowe MD Office: Perfect serve / office [phone] Neurosurgery NATE/Resident Daily Progress Note Chief Complaint [...] 120 (H) 06/28/2021 Culture, Anaerobic and Aerobic [[id number]] Collected: 07/06/212140 Updated: 07/09/21730 Specimen Type: Swab [...] Neurosurgeon Speech Language Pathology Speech Language Pathology [facility] Cognitive Treatment Note Date: 07/09/2021 Patient s Name: Meg Georges Diagnosis: Patient Active Problem List Diagnosis Code Cellulitis of left finger L03.012 Altered mental state R41.82 Encephalitis G04.90 Encephalopathy G93.40 CIDP (chronic inflammatory demyelinating polyneuropathy) ([facility]) G61.81 Sepsis ([facility]) A41.9 Bacteremia R78.81 Hypothyroidism E03.9 Hypokalemia E87.6 Type 2 diabetes mellitus with diabetic polyneuropathy ([facility]) E11.42 Primary hypertension I10 Upper GI bleed K92.2 Non-intractable vomiting R11.10 Unintentional weight loss R63.4 Acute metabolic encephalopathy G93.41 MSSA (methicillin susceptible Staphylococcus aureus) septicemia ([facility]) A41.01 CRP elevated R79.82 Bandemia D72.825 Allergy to multiple antibiotics Z88.1 Pyogenic inflammation of bone ([facility]) M86.9 Acute intractable headache R51.9 Acute osteomyelitis of cervical spine ([facility]) M46.22 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 G06.1 Pain: 8/10 Cognitive Treatment Treatment time: 7054-2907 Subjective: [x] Alert [x] Cooperative [] Confused [] Agitated [] Lethargic Objective/Assessment: Recall: Delayed recall; 1/4 increased to 2/4 with min verbal cue, 1/4 increased to 3/4 with min verbal cues Word list retention: Word placement; 3 increased to 9/ with repetitions Functional memory: Paragraph facts; 3 increased to 8/14 with repetitions and min verbal cue Problem Solving/Reasoning: Category members: [place]; 2/8 increased to 4/8 with min-mod verbal [...] recommended at discharge. Completed by Chaitanya Pratt Gis Professor Clinician Co-signed by Hina Sawyer M.S. CCC/EDUCATION GENERAL MANAGER Physical Therapy Facility/Department: [address] [place] Daily Treatment Note Name: [...] progress notes indicate needs to mobilize . Lamont thick liquids. Documentation of vocal cord paralysis. [...] Timed Code Treatment Minutes: 38 Minutes Franck Burnham PTA Images from the original note were not included. [facility] Internal Medicine Teaching Residency Program Inpatient Daily Progress Note __ Patient: Meg Georges Date of : 1965 Acct: [id number] Room: [address] [place] [address]- Admit date: 06/28/2021 Today's date: 07/09/21 Number [...] neuropathy follows neurology. Presented to ED from fdc, found confused outside. Imaging negative. She complains [...] PLAN Assessment and Plan: Principal Problem: Sepsis ([facility]) Active Problems: Altered mental state Encephalitis Encephalopathy CIDP (chronic inflammatory demyelinating polyneuropathy) ([facility]) Bacteremia Hypothyroidism Hypokalemia Type 2 diabetes mellitus with diabetic polyneuropathy ([facility]) Primary hypertension Upper GI bleed Non-intractable vomiting Unintentional weight loss Acute metabolic encephalopathy MSSA (methicillin susceptible Staphylococcus aureus) septicemia ([facility]) CRP elevated Bandemia Allergy to multiple antibiotics Pyogenic inflammation of bone ([facility]) Acute intractable headache Acute osteomyelitis of cervical [...] antihypertensives. Elevated troponins: Downtrended likely type II RI Hypokalemia: Repeat potassium level and replace if needed Left Vocal cord paralysis: Ongoing x 1 month. ENT on board. Plan for injection laryngoplasty for voice/swallowing improvement at some point. Passed swallow study. Diet: Easy to chew DVT ppx : Lovenox held GI ppx: None PT/OT/SW: Consulted Discharge Planning: In process Clark Iglesias MD Internal Medicine Resident, PGY-1 [facility]; [place], [place] 7:13 AM 07/09/2021 Please note that part of this chart was generated using voice recognition dictation software. Although every effort was made to ensure the accuracy of this automated gun club manager, some errors in gun club manager may have occurred. Associated attestation - Johnny [...] 120 (H) 06/28/2021 Culture, Anaerobic and Aerobic [[id number]] Collected: 07/06/212140 Updated: 07/08/21820 Specimen Type: Swab [...] infection Jose Alfredo Patiño DO Neurosurgery O: [phone] C: [phone] Physical Therapy Facility/Department: [address] [place] Physical Therapy Reassessment Name: [...] progress notes indicate needs to mobilize . Lamont thick liquids. Documentation of vocal cord paralysis. 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 Tipping Machine Operator rubbed some lotion on the area and [...] heel slides, assisted SLR. AM-PAC Score [facility] Inpatient Mobility Raw Score : 14 (07/08/21915) AM-[facility] Inpatient T-Scale Score : 38.1 (07/08/21915) Mobility Inpatient CMS 0-100% Score: 61.29 (07/08/21915) Mobility Inpatient [facility] G-Code Modifier : CL (07/08/21915) Goals Short [...] from the original note were not included. [facility] Internal Medicine Teaching Residency Program Inpatient Daily Progress Note __ Patient: Meg Georges Date of : 1965 Acct: [id number] Room: [facility]- Admit date: 06/28/2021 Today's date: 07/08/21 Number [...] neuropathy follows neurology. Presented to ED from fdc, found confused outside. Imaging negative. She complains [...] Encephalitis Encephalopathy CIDP (chronic inflammatory demyelinating polyneuropathy) ([facility]) Bacteremia Hypothyroidism Hypokalemia Type 2 diabetes mellitus with diabetic polyneuropathy (HCC) Primary hypertension Upper GI bleed Non-intractable vomiting Unintentional weight loss Acute metabolic encephalopathy MSSA (methicillin susceptible Staphylococcus aureus) septicemia ([facility]) CRP elevated Bandemia Allergy to multiple antibiotics Pyogenic inflammation of bone (HCC) Acute intractable headache Acute osteomyelitis of cervical spine ([facility]) 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 [...] antihypertensives. Elevated troponins: Downtrended likely type II RI Hypokalemia: Repeat potassium level and replace if needed Left Vocal cord paralysis: Ongoing x 1 month. ENT on board. Plan for injection laryngoplasty for voice/swallowing improvement at some point. Passed swallow study. Diet: Easy to chew DVT ppx : Lovenox held GI ppx: None PT/OT/SW: Consulted Discharge Planning: In process Clark Iglesias MD Internal Medicine Resident, PGY-1 [facility]; [place], [place] 7:24 AM 07/08/2021 Please note that part of this chart was generated using voice recognition dictation software. Although every effort was made to ensure the accuracy of this automated gun club manager, some errors in gun club manager may have occurred. Associated attestation - Johnny [...] not included. [facility] - Infectious diseases evaluation admission date [...] the rise despite tx Infection Control Recommendations [place] Precautions Contact Isolation Antimicrobial Stewardship Recommendations Simplification of therapy Targeted therapy History of Present Illness: Initial history: Meg Georges is a 56 y.o.-year-old female presented to the ED for altered mental status. Patient is currently admitted under neurology service. Patient presented from a fdc after an episode of confusion overnight where she was found wandering outside her fdc. She had CT head done at outside facility which did not show any acute changes, telestroke was consulted for the concern of confusion, they recommended transfer to [facility] for MRI of the brain. BC SA MSSA and LP neg CRP elevated and WBc up - creat normal 06/29 mentally recovered Neck pain x 1 mo Left sole callus was [facility] She gets her IvIg through a periph [...] ESOPHAGOGASTRODUODENOSCOPY performed by Hari Wagner MD at [facility] Endoscopy Medications: sodium chloride flush 5-40 [...] Friends and Family: Not on file Attends Denominational Services: Not on file Active Member of [...] Crowe MD Office: Perfect serve / office [phone] Neurology Nurse Practitioner Progress Note INTERVAL HISTORY: [...] who was admitted as a transfer from [facility] ED on 06/28/2021 for AMS. As per medical records, patient was found wandering outside her fdc. She was taken to [facility] ED with acute lethargy and confusion. Patient received Narcan with no improvement. Patient was evaluated by Dr. Helton through telestroke; NIH score was 1. CT head-motion degraded but no obvious acute stroke. Patient was transferred to [facility] for further evaluation. She was initially admitted [...] ESOPHAGOGASTRODUODENOSCOPY performed by Hari Wagner MD at [facility] Endoscopy PHYSICAL EXAM: Blood pressure (!) [...] TSH 0.15 (L) 06/28/2021 INR 1.2 06/28/2021 [id number] 06/28/2016 LABA1C 9.4 (H) 06/28/2021 LABMICR [...] to ensure the accuracy of this automated gun club manager, some errors in gun club manager may have occurred. Neurosurgery NATE/Resident Daily Progress [...] 120 (H) 06/28/2021 Culture, Anaerobic and Aerobic [[id number]] Collected: 07/06/212140 Updated: 07/06/212331 Specimen Type: Swab [...] Therapies Jose Alfredo Patiño DO Neurosurgery O: [phone] C: [phone] Images from the original note were not included. [facility] Internal Medicine Teaching Residency Program Inpatient Daily Progress Note __ Patient: Meg Georges Date of : 1965 Acct: [id number] Room: 0146/0146-01 Admit date: 06/28/2021 Today's date: [...] neuropathy follows neurology. Presented to ED from fdc, found confused outside. Imaging negative. She complains [...] mL, PRN tiZANidine, 2 mg, Q8H PRN epriwqzmug-jutivsbawvzyw-phtjdnxw, 1 tablet, Q4H PRN hydrALAZINE, 10 mg, [...] antihypertensives. Elevated troponins: Downtrended likely type II RI Hypokalemia: K+ 3.9 today. Repeat potassium level and replace if needed Left Vocal cord paralysis: Ongoing x 1 month. ENT on board. Plan for injection laryngoplasty for voice/swallowing improvement at some point. Passed swallow study. Rufus Argueta MD Internal Medicine Resident, PGY- 1 [facility]; [place], [place] 07/07/2021, 7:16 AM Associated attestation - [...] original note were not included. Occupational Therapy [facility] Occupational Therapy Not Seen Note DATE: 07/06/2021 NAME: Meg Georges : 1965 Patient not seen this date for Occupational Therapy due to: Surgery/Procedure: POSTERIOR CERVICAL C1-2 LAMINECTOMY Next Scheduled Treatment: 07/07 Speech Language Pathology Speech Language Pathology [facility] Cognitive/Dysphagia Treatment Note Date: 07/06/2021 Patient s Name: Meg Georges Diagnosis: Patient Active Problem List Diagnosis Code Cellulitis of left finger L03.012 Altered mental state R41.82 Encephalitis G04.90 Encephalopathy G93.40 CIDP (chronic inflammatory demyelinating polyneuropathy) ([facility]) G61.81 Sepsis (HCC) A41.9 Bacteremia R78.81 Hypothyroidism E03.9 Hypokalemia E87.6 Type 2 diabetes mellitus with diabetic polyneuropathy ([facility]) E11.42 Primary hypertension I10 Upper GI bleed K92.2 Non-intractable vomiting R11.10 Unintentional weight loss R63.4 Acute metabolic encephalopathy G93.41 MSSA (methicillin susceptible Staphylococcus aureus) septicemia ([facility]) A41.01 Elevated C-reactive protein (CRP) R79.82 Bandemia D72.825 Allergy to multiple antibiotics Z88.1 Pyogenic inflammation of bone ([facility]) M86.9 Acute intractable headache R51.9 Pain: 0/10 [...] 12/ with min verbal cues Category members: [place]; 8/10 increased to 10/10 with min verbal cues Wrong category: [place]; 5/10 increased to 10/10 with repetitions and [...] recommended at discharge. Completed by Chaitanya Pratt Gis Professor Clinician Co-signed by Robbie Mckeon M.A.CCC/EDUCATION GENERAL MANAGER Images from the original note were not included. [facility] - Infectious diseases evaluation admission date [...] the rise despite tx Infection Control Recommendations [place] Precautions Contact Isolation Antimicrobial Stewardship Recommendations Simplification of therapy Targeted therapy History of Present Illness: Initial history: Meg Georges is a 56 y.o.-year-old female presented to the ED for altered mental status. Patient is currently admitted under neurology service. Patient presented from a fdc after an episode of confusion overnight where she was found wandering outside her fdc. She had CT head done at outside facility which did not show any acute changes, telestroke was consulted for the concern of confusion, they recommended transfer to [facility] for MRI of the brain. BC SA MSSA and LP neg CRP elevated and WBc up - creat normal 06/29 mentally recovered Neck pain x 1 mo Left sole callus was infected [facility] 2 [facility] She gets her IvIg through a periph [...] ESOPHAGOGASTRODUODENOSCOPY performed by Hari Wagner MD at [facility] Endoscopy Medications: sodium chloride flush 5-40 [...] Friends and Family: Not on file Attends Denominational Services: Not on file Active Member of [...] Crowe MD Office: Perfect serve / office [phone] [facility] Neurology IN-PATIENT SERVICE [facility] Progress Note Date: 07/06/2021 Patient name: Meg Georges Date of admission: 06/28/2021 11:59 AM Account: [id number] Date of : 1965 PCP: Neri Santa [...] She was found wandering outside of her fdc. She was admitted to the medicine team and was found to have sepsis as well as a GI bleed. Neurology was consulted due to altered mentation and headache. CT head was done and was unremarkable. CTA head neck unremarkable. EEG was normal. Spinal tap was done in the ED with CSF studies negative for meningitis or BODY SHOP ESTIMATOR infection. For her headache she was placed [...] ESOPHAGOGASTRODUODENOSCOPY performed by Hari Wagner MD at [facility] Endoscopy Medications Prior to Admission: Prior [...] [Z88.1] Priority: Medium Pyogenic inflammation of bone ([facility]) [M86.9] Priority: Medium Acute intractable headache [R51.9] Priority: Medium Acute metabolic encephalopathy [G93.41] 06/30/2021 Priority: Medium MSSA (methicillin susceptible Staphylococcus aureus) septicemia ([facility]) [A41.01] 06/30/2021 Priority: Medium Upper GI bleed [K92.2] Priority: Medium Non-intractable vomiting [R11.10] Priority: Medium Unintentional weight loss [R63.4] Priority: Medium Sepsis ([facility]) [A41.9] 06/29/2021 Priority: Medium Bacteremia [R78.81] 06/29/2021 [...] On nafcillin -CSF studies are negative for BODY SHOP ESTIMATOR infection. -Continue Depakene 250mg BID for headache. [...] from the original note were not included. [facility] Internal Medicine Teaching Residency Program Inpatient Daily Progress Note __ Patient: Meg Georges Date of : 1965 Acct: [id number] Room: 0146/0146-01 Admit date: 06/28/2021 Today's date: [...] neuropathy follows neurology. Presented to ED from fdc, found confused outside. Imaging negative. She complains [...] mL, PRN tiZANidine, 2 mg, Q8H PRN aooxjszuch-vdspvburtkjnm-qfvyoogj, 1 tablet, Q4H PRN hydrALAZINE, 10 mg, [...] antihypertensives. Elevated troponins: Downtrended likely type II RI Hypokalemia: K+ 3.2 today. Likely due to diarrhea. Repeat potassium level and replace if needed Left Vocal cord paralysis: Ongoing x 1 month. ENT on board. Plan for injection laryngoplasty for voice/swallowing improvement at some point. Passed swallow study. Rufus Argueta MD Internal Medicine Resident, PGY- 1 [facility]; [place], [place] 07/06/2021, 7:41 AM Associated attestation - [...] Chew diet with mildly thick liquids per EDUCATION GENERAL MANAGER 2. Send Magic Cup ONS with meals Nutrition Assessment: Pt made NPO for MBSS d/t concern for aspiration. EDUCATION GENERAL MANAGER recommending easy to chew and mildly thick [...] ADULT DIET; Easy to Chew; Mildly Thick ([place]) Anthropometric Measures: Height: 5' 5 (165.1 cm) Byron Body Weight (IBW): 125 lbs (57 kg) Current Body Weight: 145 lb (65.8 kg), 116 % IBW. Weight Source: Stated Current BMI (kg/m2): 24.1 BMI Categories: Normal Weight (BMI 18.5-24.9) Estimated Daily Nutrient Needs: Energy Requirements Based On: Kcal/kg Weight Used for Energy Requirements: Current Energy (kcal/day): 0883-4035 kcals/day Weight Used for Protein Requirements: Current [...] determine Mary Acosta MS, RD, LD Contact: [phone] Images from the original note were not included. [facility] - Infectious diseases evaluation admission date [...] the rise despite tx Infection Control Recommendations [place] Precautions Contact Isolation Antimicrobial Stewardship Recommendations Simplification of therapy Targeted therapy History of Present Illness: Initial history: Meg Georges is a 56 y.o.-year-old female presented to the ED for altered mental status. Patient is currently admitted under neurology service. Patient presented from a fdc after an episode of confusion overnight where she was found wandering outside her fdc. She had CT head done at outside facility which did not show any acute changes, telestroke was consulted for the concern of confusion, they recommended transfer to [facility] for MRI of the brain. BC SA MSSA and LP neg CRP elevated and WBc up - creat normal 06/29 mentally recovered Neck pain x 1 mo Left sole callus [facility] She gets her IvIg through a periph [...] ESOPHAGOGASTRODUODENOSCOPY performed by Hari Wagner MD at [facility] Endoscopy Medications: gabapentin 200 mg Oral [...] Friends and Family: Not on file Attends Denominational Services: Not on file Active Member of [...] Negrete MD Office: Perfect serve / office [phone] I have discussed the care of the [...] from the original note were not included. [facility] Internal Medicine Teaching Residency Program Inpatient Daily Progress Note __ Patient: Meg Georges Date of : 1965 Acct: [id number] Room: [facility]01[facility]-01 Admit date: 06/28/2021 Today's date: 07/05/21 Number [...] neuropathy follows neurology. Presented to ED from fdc, found confused outside. Imaging negative. She complains [...] mL, PRN tiZANidine, 2 mg, Q8H PRN nxoiviieop-qijeobxbcepom-hcymrbmx, 1 tablet, Q4H PRN hydrALAZINE, 10 mg, [...] controlled Elevated troponins: Downtrended likely type II RI -echo done Hypokalemia: K+ 3.1 today. On daily 40 replacement. Repeat potassium level and replace if needed Left Vocal cord paralysis: Ongoing x 1 month. ENT on board. Plan for injection laryngoplasty for voice/swallowing improvement at some point. Passed swallow study. Tami Vega MD Internal Medicine Resident, PGY- 2 [facility]; [place], [place] 07/05/2021, 10:37 AM Associated attestation - [...] She was found wandering outside of her fdc. She was admitted to the medicine team and was found to have sepsis as well as a GI bleed. Neurology was consulted due to altered mentation and headache. CT head was done and was unremarkable. CTA head neck unremarkable. EEG was normal. Spinal tap was done in the ED with CSF studies negative for meningitis or BODY SHOP ESTIMATOR infection. For her headache she was placed [...] ESOPHAGOGASTRODUODENOSCOPY performed by Hari Wagner MD at [facility] Endoscopy Social History: Meg Georges reports [...] LABA1C 9.4 (H) 06/28/2021 LABMICR 7 06/25/2013 [id number] 06/28/2016 Diagnostic data reviewed: CT HEAD [...] of CIDP -CSF studies are negative for BODY SHOP ESTIMATOR infection -Continue Depakene 250mg BID for headache [...] to ensure the accuracy of this automated gun club manager, some errors in gun club manager may have occurred. Neurosurgery NATE/Resident Daily Progress [...] time until swallow eval completed - Dr Crupm to discuss options regarding Abx vs surgical [...] X.Vaishali Crump DO Neurosurgeon Occupational Therapy Facility/Department: [address] STEP DOWN Occupational Therapy Initial Assessment [...] Rolling ADL Assistive Devices: Long-handled Sponge;Long-handled Shoe Horn;Adjunct Mathematics Instructor;Sock-Aid Hard Patient Diagnosis(es): The primary encounter diagnosis [...] using RW since she has been at [facility], prior to she was not using AD) [...] Ambulation Assistance: Independent Transfer Assistance: Independent Active Print Support Specialist: Yes Mode of Transportation: Car 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[employer], [employer] Leisure & Hobbies: shopping Additional Comments: Support from yarsanism friends, but unsure if she would have [...] Dominance Hand Dominance: Right AM-PAC Score AM-[facility] Inpatient Daily Activity Raw Score: 19 (07/04/21 1630) AM-[facility] Inpatient ADL T-Scale Score : 40.22 (07/04/21 [...] 33 Minutes PAIGE Moreira Physical Therapy Facility/Department: [address] STEP [place] Physical Therapy Initial Assessment [...] (pt retired in restroom with OT upon hand sign writer's exit) Restraints Restraints Initially in Place: [...] this time and ok for therapy via [place] Subjective General Patient assessed for rehabilitation services?: [...] Ambulation Assistance: Independent Transfer Assistance: Independent Active Print Support Specialist: Yes Mode of Transportation: Car 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[employer], [employer] Leisure & Hobbies: shopping Additional Comments: Support from yarsanism friends, but unsure if she would have [...] Not formally assessed due to c-spine precautions; chief engineer research strength WFL Strength LUE Strength LUE: Exception Comment: Not formally assessed due to c-spine precautions; chief engineer research strength WFL Bed mobility Supine to Sit: Contact guard assistance Sit to Supine: (Did not formally assess- pt retired in restroom upon hand sign writer's exit) Bed Mobility Comments: Increased time [...] requiring Alejandra donning/ doffing from assistance from hand sign writer. More Ambulation?: No Stairs/Curb Stairs?: No [...] PT Speech Language Pathology Speech Language Pathology [facility] Cognitive Treatment Note Date: 07/04/2021 Patient s Name: Meg Georges Diagnosis: Patient Active Problem List Diagnosis Code Cellulitis of left finger L03.012 Altered mental state R41.82 Encephalitis G04.90 Encephalopathy G93.40 CIDP (chronic inflammatory demyelinating polyneuropathy) ([facility]) G61.81 Sepsis ([facility]) A41.9 Bacteremia R78.81 Hypothyroidism E03.9 Hypokalemia E87.6 Type 2 diabetes mellitus with diabetic polyneuropathy ([facility]) E11.42 Primary hypertension I10 Upper GI bleed K92.2 Non-intractable vomiting R11.10 Unintentional weight loss R63.4 Acute metabolic encephalopathy G93.41 MSSA (methicillin susceptible Staphylococcus aureus) septicemia ([facility]) A41.01 Elevated C-reactive protein (CRP) R79.82 Bandemia D72.825 Allergy to multiple antibiotics Z88.1 Pyogenic inflammation of bone ([facility]) M86.9 Acute intractable headache R51.9 Pain: 10/10 [...] recommended at discharge. Treatment completed by:Chaitanya Pratt Gis Professor ROBBIE MCKEON EDUCATION GENERAL MANAGER, M.A. [facility]-EDUCATION GENERAL MANAGER Patient's operative note found from care everywhere from Dr.Gloria Elena Washington MD 02/22/2010 from [facility]. Implant is Baerveldt 250 tube shunt, on the left for open angle glaucoma. This is MRI compatible. MRI department will confirm this. Speech Language Pathology [facility] Speech Language Pathology Date: 07/04/2021 Patient Name: Meg Georges Date of : 1965 AGE: 56 y.o. Patient Not Available for Speech Therapy Due to: [] Testing [] Hemodialysis [] Cancelled by RN [] Surgery [] Intubation/Sedation/Pain Medication [] Medical instability [x] Other: Pt in pain. Asked ST to return later Next scheduled treatment: 518 in PM if able, 07/05 Completed by:Chaitanya Pratt Gis Professor ROBBIE MCKEON, EDUCATION GENERAL MANAGER, M.A. [facility]-EDUCATION GENERAL MANAGER ENT/OTOLARYNGOLOGY PROGRESS NOTE REASON FOR CARE: AMS, [...] and Dr. Angel Krueger [address] [facility] [address] OPTION 2: [facility] [address], [address] [place] [address] Appointment scheduling: Other Useful Numbers: [facility]'s ENT Nurse triage line [phone] (ENT-related questions or concerns, 8am-4pm, Friday through Friday) Gutierrez Sloan MD Pediatric Otolaryngology-Head and Neck Surgery [facility] Otolaryngology group Office ph# [phone] Also available in [employer] Images from the original note were not included. [facility] - Infectious diseases evaluation admission date [...] patient, RN, Dr. Robledo. Infection Control Recommendations [place] Precautions Contact Isolation Antimicrobial Stewardship Recommendations Simplification of therapy Targeted therapy History of Present Illness: Initial history: Meg Georges is a 56 y.o.-year-old female presented to the ED for altered mental status. Patient is currently admitted under neurology service. Patient presented from a fdc after an episode of confusion overnight where she was found wandering outside her fdc. She had CT head done at outside facility which did not show any acute changes, telestroke was consulted for the concern of confusion, they recommended transfer to [facility] for MRI of the brain. BC SA MSSA and LP neg CRP elevated and WBc up - creat normal 06/29 mentally recovered Neck pain x 1 mo Left sole callus [facility] She gets her IvIg through a periph [...] ESOPHAGOGASTRODUODENOSCOPY performed by Hari Wagner MD at [facility] Endoscopy Medications: lidocaine 1 patch TransDERmal [...] Friends and Family: Not on file Attends Denominational Services: Not on file Active Member of [...] Orellana CNP Office: Perfect serve / office [phone] \ Images from the original note were [...] She was found wandering outside of her fdc. She was admitted to the medicine team and was found to have sepsis as well as a GI bleed. Neurology was consulted due to altered mentation and headache. CT head was done and was unremarkable. CTA head neck unremarkable. EEG was normal. Spinal tap was done in the ED with CSF studies negative for meningitis or BODY SHOP ESTIMATOR infection. For her headache she was placed [...] ESOPHAGOGASTRODUODENOSCOPY performed by Hari Wagner MD at [facility] Endoscopy Social History: Meg Georges reports [...] LABA1C 9.4 (H) 06/28/2021 LABMICR 7 06/25/2013 [id number] 06/28/2016 Diagnostic data reviewed: CT HEAD [...] IVIG sooner -CSF studies are negative for BODY SHOP ESTIMATOR infection -Continue Depakene 250mg BID for headache -GI is following, patient is s/p EGD with findings suggestive of Alan esophagitis -ID is following; patient remains on antibiotics -Neurosurgery is following; possible myelogram -PT/OT -We will follow Please note that this note was generated using a voice recognition dictation software. Although every effort was made to ensure the accuracy of this automated gun club manager, some errors in gun club manager may have occurred. Images from the original note were not included. [facility] Internal Medicine Teaching Residency Program Inpatient Daily Progress Note __ Patient: Meg Georges Date of : 1965 Acct: [id number] Room: [address] [place] [address] Admit date: 06/28/2021 Today's date: 07/04/21 Number [...] neuropathy follows neurology. Presented to ED from fdc, found confused outside. Imaging negative. She complains [...] mL, PRN tiZANidine, 2 mg, Q8H PRN uvklkazazo-qsmfmoumkwcnt-jmfxmnxc, 1 tablet, Q4H PRN hydrALAZINE, 10 mg, [...] and read back by: VIRGIE Parker AT 1115 ON 07/04/21 Imaging: CT Head WO Contrast [...] controlled Elevated troponins: Downtrending likely type II RI -echo result pending Hypokalemia: K+ 2.9 today. [...] Argueta MD Internal Medicine Resident, PGY- 1 [facility]; [place], [place] 07/04/2021, 7:05 AM Associated attestation - [...] check back 07/04/21. Speech Language Pathology Facility/Department: [facility] 1C STEP DOWN Initial Speech/Language/Cognitive Assessment [...] and MSSA (methicillin susceptible Staphylococcus aureus) septicemia ([facility]) on their problem list. Date of Eval: [...] hyperlipidemia, sleep apnea, who was transferred from [facility], after she presented from her fdc for an episode of confusion overnight where she was found wandering outside her fdc. She does not recall the episode very well, complaining of head pain, generalized weakness, weak voice. She had CT head done at outside facility which did not show any acute changes, telestroke was consulted for the concern for confusion, they recommended transfer to [facility] for MRI of the brain. Patient has a complicated history over the last few years, has been seen by neurology at [facility] for worsening neuropathy symptoms, eventually diagnosed with CIDP and she is on IVIG infusions every 2 weeks although she has not had them in the last month or so since being in the fdc. 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 Recommendations: Requires EDUCATION GENERAL MANAGER Intervention: Yes D/C Recommendations: Ongoing speech therapy [...] not included. [facility] - Infectious diseases evaluation admission date [...] the rise [place][pite tx Infection Control Recommendations [place] Precautions Contact Isolation Antimicrobial Stewardship Recommendations Simplification of therapy Targeted therapy History of Present Illness: Initial history: Meg Georges is a 56 y.o.-year-old female presented to the ED for altered mental status. Patient is currently admitted under neurology service. Patient presented from a fdc after an episode of confusion overnight where she was found wandering outside her fdc. She had CT head done at outside facility which did not show any acute changes, telestroke was consulted for the concern of confusion, they recommended transfer to [facility] for MRI of the brain. BC SA MSSA and LP neg CRP elevated and WBc up - creat normal 06/29 mentally recovered Neck pain x 1 mo Left sole callus was [facility] 2 [facility] ago [facility] She gets her IvIg through a periph [...] Friends and Family: Not on file Attends Denominational Services: Not on file Active Member of [...] Crowe MD Office: Perfect serve / office [phone] \ Echo completed in echo lab. Images [...] She was found wandering outside of her fdc. She was admitted to the medicine team and was found to have sepsis as well as a GI bleed. Neurology was consulted due to altered mentation and headache. CT head was done and was unremarkable. CTA head neck unremarkable. EEG was normal. Spinal tap was done in the ED with CSF studies negative for meningitis or BODY SHOP ESTIMATOR infection. For her headache she was placed [...] or delusion CRANIAL NERVES: II - Visual bboo intact to confrontation III,IV, - EOMs full, [...] LABA1C 9.4 (H) 06/28/2021 LABMICR 7 06/25/2013 [id number] 06/28/2016 Diagnostic data reviewed: CT HEAD [...] CIDP Plan: -CSF studies are negative for BODY SHOP ESTIMATOR infection -Patient headache is improved with Depacon; [...] to ensure the accuracy of this automated gun club manager, some errors in gun club manager may have occurred. Images from the original note were not included. [facility] Internal Medicine Teaching Residency Program Inpatient Daily Progress Note __ Patient: Meg Georges Date of : 1965 Acct: [id number] Room: [address] [place] [address]- Admit date: 06/28/2021 Today's date: 07/03/21 Number [...] neuropathy follows neurology. Presented to ED from fdc, found confused outside. Imaging negative. She complains [...] Daily PRN tiZANidine, 2 mg, Q8H PRN ayicrwbiis-xubfazlknvklu-zbquppxx, 1 tablet, Q4H PRN hydrALAZINE, 10 mg, [...] controlled Elevated troponins: Downtrending likely type II RI -echo result pending Hypokalemia: K+ 2.9 today. [...] Argueta MD Internal Medicine Resident, PGY- 1 [facility]; [place], [place] 07/03/2021, 5:58 AM Associated attestation - [...] not included. [facility] - Infectious diseases evaluation admission date [...] scan to the neck Infection Control Recommendations [place] Precautions Contact Isolation Antimicrobial Stewardship Recommendations Simplification of therapy Targeted therapy History of Present Illness: Initial history: Meg Georges is a 56 y.o.-year-old female presented to the ED for altered mental status. Patient is currently admitted under neurology service. Patient presented from a fdc after an episode of confusion overnight where she was found wandering outside her fdc. She had CT head done at outside facility which did not show any acute changes, telestroke was consulted for the concern of confusion, they recommended transfer to [facility] for MRI of the brain. BC SA MSSA and LP neg CRP elevated and WBc up - creat normal 06/29 mentally recovered Neck pain x 1 mo Left sole callus was [facility] 2 [facility] She gets her IvIg through a periph [...] Friends and Family: Not on file Attends Denominational Services: Not on file Active Member of [...] Crowe MD Office: Perfect serve / office [phone] \ Speech Language Pathology [facility] Speech Language Pathology Date: 07/02/2021 Patient [...] as appropriate Completed by: HOLGER Larson, M.S. [facility]-EDUCATION GENERAL MANAGER NEUROLOGY INPATIENT PROGRESS NOTE 07/02/2021 Subjective: Meg Georges is a 56 y.o. female admitted on 06/28/2021 with Stupor [R40.1] Encephalitis [G04.90] Altered mental state [R41.82] Briefly, this is a 56 y.o. 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 She was found wandering outside her fdc. Admitted to medicine for sepsis work up, [...] 0-6 Units SubCUTAneous Nightly PRN Meds include: erbogakveg-bpfoccasunpwc-yqntafie, hydrALAZINE, sodium chloride flush, sodium chloride, ondansetron [...] LABA1C 9.4 (H) 06/28/2021 LABMICR 7 06/25/2013 [id number] 06/28/2016 No results found for: PHENYTOIN, [...] confusion. She was found wandering outside her fdc. MSSA sepsis - on Abx per primary. [...] for EGD today. CSF studies negative for BODY SHOP ESTIMATOR infection. Will continue to follow. Pawan Dutton DO 07/02/2021 3:45 PM Images from the original note were not included. [facility] Internal Medicine Teaching Residency Program Inpatient Daily Progress Note __ Patient: Meg Georges Date of : 1965 Acct: [id number] Room: 0146/0146-01 Admit date: 06/28/2021 Today's date: [...] neuropathy follows neurology. Presented to ED from fdc, found confused outside. Imaging negative. She complains [...] at 07/01/21 0600 sodium chloride dextrose PRN Vbhkhhgxejdpnctiqdwsy-asvjskzejmusj-yo ffeine, 1 tablet, Q4H PRN hydrALAZINE, 10 [...] N&V Elevated troponins: Downtrending likely type II RI -echo result pending Hypokalemia: K+ 2.2 today. Replace PO and IV and monitor Left Vocal cord paralysis: Ongoing x 1 month. ENT on board. Plan for injection laryngoplasty for voice/swallowing improvement at some point. Needs formal speech therapy/swallow study assessment as she is likely aspirating liquids Rufus Agrueta MD Internal Medicine Resident, PGY- 1 [facility]; [place], [place] 07/02/2021, 7:16 AM Associated attestation - [...] history and exam findings with the resident/ HOG TENDER. I have seen and examined the patient and the coffey elements of the encounter have been performed by me. I agree with the assessment, plan and orders as documented by the resident or HOG TENDER with changes made to the note. Briefly, this is a 56 y.o. female with known dx of CIDP (on 2wkly IVIG), IDDM, HLD, sleep apnea was admitted on 06/28/2021 with episodic confusion; found wandering outside her fdc. Her history is significant for CIDP for [...] 0-6 Units SubCUTAneous Nightly PRN Meds include: fgoarlqasf-jdpiikygicvrb-duvzymei, hydrALAZINE, sodium chloride flush, sodium chloride, ondansetron [...] LABA1C 9.4 (H) 06/28/2021 LABMICR 7 06/25/2013 [id number] 06/28/2016 Impression and Plan: Ms. Meg [...] you. Jenifer Jewell MD 07/01/2021 2:01 PM [facility] Neurology IN-PATIENT SERVICE [facility] Progress note Date: 07/01/2021 Patient name: Meg Georges Date of admission: 06/28/2021 11:59 AM Account: [id number] Date of : 1965 PCP: Neri Santa Sr, DO Room: [address] [place] [address] Code Status: Full Code Chief Complaint: Chief [...] panel 5/12/22 Total cholesterol 155, LDL 63 [id number] this admission CSF studies 06/28/21 Oligoclonal banding [...] # 2.14 1.0 - 4.8 k/uL Absolute [place] # 0.76 0.1 - 0.8 k/uL Absolute [...] 2.6 mg/dL Assessment : Primary Problem Sepsis ([facility]) Active Hospital Problems Diagnosis Date Noted Acute metabolic encephalopathy [G93.41] 06/30/2021 Priority: Medium MSSA (methicillin susceptible Staphylococcus aureus) septicemia ([facility]) [A41.01] 06/30/2021 Priority: Medium Upper GI bleed [K92.2] Priority: Medium Non-intractable vomiting [R11.10] Priority: Medium Unintentional weight loss [R63.4] Priority: Medium Sepsis ([facility]) [A41.9] 06/29/2021 Priority: Medium Bacteremia [R78.81] 06/29/2021 Priority: Medium Hypothyroidism [E03.9] 06/29/2021 Priority: Medium Hypokalemia [E87.6] 06/29/2021 Priority: Medium Type 2 diabetes mellitus with diabetic polyneuropathy ([facility]) [E11.42] 06/29/2021 Priority: Medium Primary hypertension [I10] 06/29/2021 Priority: Medium Encephalopathy [G93.40] Priority: Medium CIDP (chronic inflammatory demyelinating polyneuropathy) ([facility]) [G61.81] Priority: Medium Altered mental state [R41.82] [...] history and exam findings with the resident/ HOG TENDER. I have seen and examined the patient and the coffey elements of the encounter have been performed by me. I agree with the assessment, plan and orders as documented by the resident or HOG TENDER with changes made to the note. Briefly, this is a 56 y.o. female with known dx of CIDP (on 2wkly IVIG), IDDM, HLD, sleep apnea was admitted on 06/28/2021 with episodic confusion; found wandering outside her fdc. Her history is significant for CIDP for [...] SubCUTAneous Nightly PRN Meds include: PRN Medications vhkuhspyhf-ivqdnnbanqwzn-vvibyvgo, hydrALAZINE, sodium chloride flush, sodium chloride, ondansetron [...] LABA1C 9.4 (H) 06/28/2021 LABMICR 7 06/25/2013 [id number] 374 06/28/2016 Impression and Plan: Ms. Meg [...] from the original note were not included. [facility] Internal Medicine Teaching Residency Program Inpatient Daily Progress Note __ Patient: Meg Georges Date of : 1965 Acct: [id number] Room: [address] [place] [address] Admit date: 06/28/2021 Today's date: 07/01/21 Number [...] neuropathy follows neurology. Presented to ED from fdc, found confused outside. Imaging negative. She complains [...] at 07/01/21 0600 sodium chloride dextrose PRN Pfkqhhojykgcafnhkerko-mpxdahxdrbmyn-wg ffeine, 1 tablet, Q4H PRN hydrALAZINE, 10 [...] N&V Elevated troponins: Downtrending likely type II RI -echo result pending Hypokalemia: K+ 2.2 today. Replace PO and IV and monitor Rufus Argueta MD Internal Medicine Resident, PGY- 1 [facility]; [place], [place] 07/01/2021, 7:33 AM Associated attestation - [...] not included. [facility] - Infectious diseases evaluation Progress Note [...] object in her eyes Infection Control Recommendations [place] Precautions Antimicrobial Stewardship Recommendations Simplification of therapy Targeted therapy History of Present Illness: INITIAL HISTORY: Meg Georges is a 56 y.o.-year-old female who presented to the ED because of altered mental status. Patient is currently admitted under neurology service. Patient presented from a fdc after an episode of confusion overnight where she was found wandering outside her fdc. She had CT head done at outside facility which did not show any acute changes. Telestroke was consulted because of the concern with confusion, they recommended transfer to [facility] for MRI of the brain. BC: Staph A (MSSA) and LP neg CRP elevated and WBc up - creat normal 06/29 mentally recovered Neck pain x 1 mo Left sole callus was [facility] She gets her IvIg through a peripheral [...] Friends and Family: Not on file Attends Denominational Services: Not on file Active Member of [...] Stokes MD Office: Perfect serve / office [phone] [facility] Gastroenterology Progress Note Meg Georges is a [...] chloride Stopped (07/01/21426) sodium chloride dextrose PRN Meds:xwpgbvbhzw-myehecwthhcwv-ftiausws , hydrALAZINE, sodium chloride flush, sodium chloride, [...] results for input(s): LABIRON, TIBC, IRON, FERRITIN, [id number], FOLATE, OCCULTBLD in the last 72 hours. [...] head and neck. ENDOSCOPY Principal Problem: Sepsis ([facility]) Active Problems: Altered mental state Encephalitis Encephalopathy CIDP (chronic inflammatory demyelinating polyneuropathy) ([facility]) Bacteremia Hypothyroidism Hypokalemia Type 2 diabetes mellitus with diabetic polyneuropathy ([facility]) Primary hypertension Upper GI bleed Non-intractable vomiting Unintentional weight loss Acute metabolic encephalopathy MSSA (methicillin susceptible Staphylococcus aureus) septicemia ([facility]) Resolved Problems: * No resolved hospital problems. * GI Assessment: 56-year-old female with a past medical history of uncontrolled insulin-dependent diabetes (Hgb A1c-9.4), hypothyroidism, chronic inflammatory demyelinating polyneuropathy on IVIG, MGUS neuropathy, and GERD who presented from fdc after being found outside confused. She was [...] of your patient. Rosalinda Alvarado APRN - HOG TENDER on 07/01/2021 at 6:50 AM [facility] Please note that this note was generated using a voice recognition dictation software. Although every effort was made to ensure the accuracy of this automated gun club manager, some errors in gun club manager may have occurred. Associated attestation - Hari Wagner MD - 07/01/2021 11:00 AM EDT Attending Physician Statement I have seen, examined and discussed the care of Meg Georges, including pertinent history and exam findings, with the HOG TENDER. I agree with the assessment, plan and orders as documented by the HOG TENDER. SPIRITUAL CARE DEPARTMENT - [facility] PROGRESS NOTE Shift date: 06/30/21 Shift day: Friday Shift # 2 Room # 0146/0146-01 Name: Meg Georges Age: 56 y.o. Gender: female Orthodox: [employer] Place of presybeterian: Referral: Routine Visit Admit Date & Time: 06/28/2021 11:59 AM PATIENT/EVENT DESCRIPTION: Meg Georges is a 56 y.o. female SPIRITUAL ASSESSMENT/INTERVENTION: Patient appeared to welcome parts room assistant presence. Patient engaged in conversation and stated she had lost her voice. Plastic Straightening Roll Operator was a ministry of presence and offered prayer for spiritual comfort/support. Patient accepted prayer and expressed gratitude for visit. SPIRITUAL CARE FOLLOW-UP PLAN: Chaplains will remain available to offer spiritual and emotional support as needed. . Spiritual Care Department [facility] [phone] Images from the original note were not included. [facility] Internal Medicine Teaching Residency Program Inpatient Daily Progress Note __ Patient: Meg Georges Date of : 1965 Acct: [id number] Room: [facility]- Admit date: 06/28/2021 Today's date: 06/30/21 Number [...] neuropathy follows neurology. Presented to ED from fdc, found confused outside. Imaging negative. She complains [...] Stopped (06/30/21 0408) sodium chloride dextrose PRN Dkrpfrihdmznuafuimjbl-uswlpoxrrvbhm-fh ffeine, 1 tablet, Q4H PRN hydrALAZINE, 10 [...] N&V Elevated troponins: Downtrending likely type II RI -echo result pending Hypokalemia: Labs pending Jonathan Steve MD Internal Medicine Resident, PGY- 2 [facility]; [place], [place] 06/30/2021, 12:56 PM Associated attestation - [...] with episodic confusion; found wandering outside her fdc. Her history is significant for CIDP for [...] 0-6 Units SubCUTAneous Nightly PRN Meds include: hvcoobkash-ryxqwmfkocpak-jatwbjnp, hydrALAZINE, sodium chloride flush, sodium chloride, ondansetron [...] LABA1C 9.4 (H) 06/28/2021 LABMICR 7 06/25/2013 [id number] 374 06/28/2016 Impression and Plan: Ms. Meg [...] patient and her nurse at bedside. Jenifer Jweell MD 06/30/2021 11:45 AM Speech Language Pathology Facility/Department: [facility] 1C STEP DOWN Initial Speech/Language/Cognitive Assessment [...] chronic IVIG every 2 weeks, transferred from [facility] for further neurological evaluation. She [...] any ENT evaluation Diagnosis: Dysphonia Recommendations: Requires EDUCATION GENERAL MANAGER Intervention: Yes D/C Recommendations: To be determined [...] Co-treatment Time In Time Out Minutes HOLGER Newton 06/30/2021 8:59 AM Images from the original note were not included. [facility] - Infectious diseases evaluation Progress Note [...] object in her eyes Infection Control Recommendations [place] Precautions Antimicrobial Stewardship Recommendations Simplification of therapy Targeted therapy History of Present Illness: INITIAL HISTORY: Meg Georges is a 56 y.o.-year-old female who presented to the ED because of altered mental status. Patient is currently admitted under neurology service. Patient presented from a fdc after an episode of confusion overnight where she was found wandering outside her fdc. She had CT head done at outside facility which did not show any acute changes. Telestroke was consulted because of the concern with confusion, they recommended transfer to [facility] for MRI of the brain. BC: Staph A (MSSA) and LP neg CRP elevated and WBc up - creat normal 06/29 mentally recovered Neck pain x 1 mo Left sole callus was [facility] She gets her IvIg through a peripheral [...] Friends and Family: Not on file Attends Denominational Services: Not on file Active Member of [...] Stokes MD Office: Perfect serve / office [phone] Dr Crowe phoned hand sign writer with new order d/c MRI d/t unknown foreign object in patients eyes. New order for bone scan for cervical spine,look for osteomyelitis. EEG completed Speech Language Pathology [facility] Speech Language Pathology Date: 06/29/2021 Patient [...] Chaitanya Pratt Graduate Clinician ROBBIEHOLGER ROSE, M.A. [facility]-EDUCATION GENERAL MANAGER [facility] Pharmacokinetic Monitoring Service - Vancomycin Meg [...] for the consult, David Donnelly Pharm.D., E[place], [facility] 06/29/2021 9:15 AM Neurology Resident Progress Note [...] No nausea, vomiting, diarrhea. Genitourinary: No increa [facility] Work Phone: 07-10-2021 Hospital Discharge instructions Sebas Arnold RN - 07/10/2021 7:52 AM EDT Continuity of Care Form Patient Name: Meg Georges : 1965 Admit date: 06/28/2021 Discharge date: 07/10/2021 Code Status Order: Full Code Advance Directives: Admitting Physician: Silver Carmona MD PCP: Neri Santa Sr, DO Discharging Nurse: Thierry Quiles Hospital Unit/Room#: 0146/0146-01 Discharging Unit Phone Number: [phone] Emergency Contact: Extended Emergency Contact Information Primary Emergency Contact: Hina [facility] Mobile Relation: Brother/Sister Past Surgical History: Past Surgical History: Procedure Laterality Date ACHILLES TENDON SURGERY left BACK SURGERY L 4 and 5 1995, 1996 CERVICAL FUSION N/A 07/06/2021 POSTERIOR CERVICAL C1 LAMINECTOMY. LEFT C2 RHIZOTOMY, EXPLORATION OF EPIDURAL PHLEGMON performed by Alisia Crump DO at [facility] OR CHOLECYSTECTOMY EYE SURGERY [address] shunt for open angle glaucoma. MRI compatible- device is all silicone LAMINECTOMY 07/06/2021 Posterior C1, LEFT C2 RHIZOTOMY, EXPLORATION OF EPIDURAL PHLEGMON SHOULDER SURGERY right UPPER GASTROINTESTINAL ENDOSCOPY N/A 07/02/2021 EGD ESOPHAGOGASTRODUODENOSCOPY performed by Hari Wagner MD at [facility] Endoscopy Immunization History: There is no immunization history on file for this patient. Active Problems: Patient Active Problem List Diagnosis Code Cellulitis of left finger L03.012 Altered mental state R41.82 Encephalitis G04.90 Encephalopathy G93.40 CIDP (chronic inflammatory demyelinating polyneuropathy) ([facility]) G61.81 Sepsis ([facility]) A41.9 Bacteremia R78.81 Hypothyroidism E03.9 Hypokalemia E87.6 Type 2 diabetes mellitus with diabetic polyneuropathy ([facility]) E11.42 Primary hypertension I10 Upper GI bleed K92.2 Non-intractable vomiting R11.10 Unintentional weight loss R63.4 Acute metabolic encephalopathy G93.41 MSSA (methicillin susceptible Staphylococcus aureus) septicemia ([facility]) A41.01 CRP elevated R79.82 Bandemia D72.825 Allergy to multiple antibiotics Z88.1 Pyogenic inflammation of bone (HCC) M86.9 Acute intractable headache R51.9 Acute osteomyelitis of cervical spine ([facility]) M46.22 Abscess in epidural space of cervical [...] - PICC - site {Anatomy; iv placement site:[id number]}, insertion date: 07/10/2021 Nursing Mobility/ADLs: Walking Assisted Transfer Assisted Bathing Assisted Dressing Assisted Toileting Assisted Feeding Assisted Snorkelling Instructor Assisted Med Delivery crushed Wound Care Documentation [...] mechanically altered Routes of Feeding: Oral Liquids: Lamont Thick Liquids Daily Fluid Restriction: no Last [...] DME order): wheelchair and walker Other Treatments: Penitentiary Assessment Patient's personal belongings (please select all that are sent with patient): Trey RN SIGNATURE: CASE MANAGEMENT/SOCIAL WORK SECTION Inpatient Status Date: Readmission Risk Assessment Score: Readmission Risk Risk of Unplanned Readmission: 23 Discharging to Facility/ Agency Usman paulson [place] [facility] Available [facility] Address [address] [facility] [address] Contact Information [phone] Dialysis Facility (if applicable) Name: Address: Dialysis Schedule: Phone: 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 Update Admission [...] retention documented in this encounter ARASELI CRUZ [facility] Phone: 06-28-2021 History of Present illness Narrative Updated sister, Hina. States will be in. This nurse called and spoke with Rachel (nurse) at [place] to get an updated med list. Rachel [...] she was vomiting. documented in this encounter [facility] Phone: 05-11-2021 History of Present illness Narrative The patient tolerated the infusion well without any complications. documented in this encounter [facility] 05-01-2021 Instructions Tia Baugh PA-C - 05/01/2021 [...] sent through Care Everywhere.Staph Infection: General Info (Eritrean)Moise (Eritrean)documented in this encounter [facility] 05-01-2021 History of Present illness Narrative PATIENT NAME: Meg Joaquin [facility] URGENT CARE: [address] [place] [place] [address] DATE OF VISIT: 05/01/2021 DATE OF : [...] without toes, left 01/26/2019 Asthma Atherosclerosis of [place] arteries of left leg with ulceration of [...] 11/11/2017 Corns and callosities 03/13/2016 Diabetes mellitus ([facility]) Dystrophic nail 11/15/2016 Foot cramps Foot ulcer ([facility]) 02/25/2019 OTHER PART OF FOOT Fracture of third toe, left, closed 02/15/2016 Fungal toenail infection 11/15/2016 GERD (gastroesophageal reflux disease) Glaucoma both eyes Heart murmur High cholesterol 03/27/2015 Hyperlipidemia Hypertension Ingrown toenail 10/30/2015 Leg cramps Metatarsalgia of both feet 10/07/2016 Neuropathy Non-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 ([facility]) 09/06/2016 Non-pressure chronic ulcer of left lower leg with fat layer exposed ([facility]) 03/28/2017 Non-pressure chronic ulcer of other part of left foot with fat layer exposed (HCC) 08/14/2017 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 involvement without evidence of necrosis ([facility]) 03/14/2017 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) 08/14/2016 Nondisplaced fracture of proximal phalanx of right great toe 09/19/2017 Onychomycosis 12/13/2015 Osteomyelitis ([facility]) 04/23/2019 Peripheral vascular disease ([facility]) 08/17/2019 Pre-ulcerative calluses 08/13/2018 Right foot ulcer ([facility]) 09/26/2014 Shortness of breath Sprain of calcaneofibular ligament of right ankle 12/05/2017 Swelling of both ankles Swelling of both lower extremities Thyroid disorder 03/27/2015 Tinea unguium 08/13/2018 Traumatic closed fracture of phalanx of foot with minimal displacement 08/11/2017 Traumatic closed nondisplaced fracture of phalanx of right foot with delayed healing 09/08/2017 Type 2 diabetes mellitus with diabetic neuropathy ([facility]) 11/11/2017 Diabetic autonomic (poly) neuropathy Type 2 diabetes mellitus with foot ulcer ([facility]) 06/19/2016 Type 2 diabetes, uncontrolled, with peripheral circulatory disorder ([facility]) 03/28/2017 Xerosis cutis 01/17/2016 Family History Problem [...] for this visit. -Aerobic culture of the uxnxpwcs-dltx-rxp from the small finger of the right hand -Doxycycline 100 mg twice daily for 7 days -Mupirocin ointment to be applied 3 times daily to the affected area and a light layer -I have contacted Dr. Stanley's office in [place] and hoping to schedule a follow-up visit with Dr. Stanley for further evaluation of the patient's hand. Tia Baugh 05/01/2021 documented in this encounter [facility] 04-17-2021 History of Present illness Narrative Left [...] of her wounds documented in this encounter [facility] 04-12-2021 Note Procedure date: 04/12. Intraocular injection: 1.25 mg Bevacizumab (AVASTIN) 2.5mg/0.1 ML syringe [facility]: 52472-897-32, Lot: [id number], Expiration date: 06/10/2021 Route: Intravitreal, Site: Right Eye Notes Bevacizumab (Avastin) Intraocular Injection Right Eye - OPHTHALMOLOGY PROCEDURE NOTE PROCEDURE PERFORMED BY: Sharon Hernandez MD RUG FRAME MOUNTER(S): None ATTENDING: Sharon Hernandez MD PROCEDURE DATE: 04/12/2021 PROCEDURE START TIME: 10:47 AM INDICATIONS: Treatment of ICD-10-CM 1. Diabetic macular edema E11.311 [place] BEVACIZUMAB SOLN - OD EYE: Right (OD) [...] THIS PROCEDURE REQUIRE A UNIVERSAL PROTOCOL? Yes. [place] Protocol is required. Pre-procedure verification was completed. [...] saline and an antibiotic drop was instilled. [facility] 04-05-2021 Note Procedure date: 04/05. Intraocular injection: 1.25 mg Bevacizumab (AVASTIN) 2.5mg/0.1 ML syringe ND: [id number], Lot: [id number], Expiration date: 05/01/2021 Route: Intravitreal, Site: Left Eye Notes Bevacizumab (Avastin) Intraocular Injection Left Eye - OPHTHALMOLOGY PROCEDURE NOTE PROCEDURE PERFORMED BY: Sharon Hernandez MD RUG FRAME MOUNTER(S): None ATTENDING: Sharon Hernandez MD PROCEDURE DATE: 04/05/2021 PROCEDURE START TIME: 11:15 AM INDICATIONS: Treatment of ICD-10-CM 1. 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 Yes. [place] Protocol is required. Pre-procedure verification was completed. [...] saline and an antibiotic drop was instilled. [facility] 03-27-2021 History of Present illness Narrative Left [...] of her wounds documented in this encounter [facility] 02-20-2021 Instructions Jef Sierra Jr., DPM - 02/20/2021 10:07 AM EST Continue topical antibiotic ointment and bandaid with padding. documented in this encounter [facility] 02-20-2021 History of Present illness Narrative HPI [...] without toes, left 01/26/2019 Asthma Atherosclerosis of [place] arteries of left leg with ulceration of other part of foot ([facility]) 03/14/2017 Back problem Bilateral foot-drop 02/01/2016 Callus [...] 11/11/2017 Corns and callosities 03/13/2016 Diabetes mellitus ([facility]) Dystrophic nail 11/15/2016 Foot cramps Foot ulcer ([facility]) 02/25/2019 OTHER PART OF FOOT Fracture of third toe, left, closed 02/15/2016 Fungal toenail infection 11/15/2016 GERD (gastroesophageal reflux disease) Glaucoma both eyes Heart murmur High cholesterol 03/27/2015 Hyperlipidemia Hypertension Ingrown toenail 10/30/2015 Leg cramps Metatarsalgia of both feet 10/07/2016 Neuropathy Non-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 ([facility]) 09/06/2016 Non-pressure chronic ulcer of left lower leg with fat layer exposed ([facility]) 03/28/2017 Non-pressure chronic ulcer of other part of left foot with fat layer exposed ([facility]) 08/14/2017 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 involvement without evidence of necrosis ([facility]) 03/14/2017 Non-pressure chronic ulcer of right ankle limited to breakdown of skin ([facility]) 08/14/2016 Nondisplaced fracture of proximal phalanx of right great toe 09/19/2017 Onychomycosis 12/13/2015 Osteomyelitis ([facility]) 04/23/2019 Peripheral vascular disease ([facility]) 08/17/2019 Pre-ulcerative calluses 08/13/2018 Right foot ulcer ([facility]) 09/26/2014 Shortness of breath Sprain of calcaneofibular ligament of right ankle 12/05/2017 Swelling of both ankles Swelling of both lower extremities Thyroid disorder 03/27/2015 Tinea unguium 08/13/2018 Traumatic closed fracture of phalanx of foot with minimal displacement 08/11/2017 Traumatic closed nondisplaced fracture of phalanx of right foot with delayed healing 09/08/2017 Type 2 diabetes mellitus with diabetic neuropathy ([facility]) 11/11/2017 Diabetic autonomic (poly) neuropathy Type 2 diabetes mellitus with foot ulcer ([facility]) 06/19/2016 Type 2 diabetes, uncontrolled, with peripheral circulatory disorder ([facility]) 03/28/2017 Xerosis cutis 01/17/2016 Past Surgical History: [...] clean [facility]Follow-up in 2 weeks to review. documented in this encounter [facility] 02-14-2021 Note Procedure date: 01/18. Right Eye [...] Recommendation for management is to continue treatment. [facility] 02-14-2021 Note Procedure date: 01/18. Intraocular injection: 1.25 mg Bevacizumab (AVASTIN) 2.5mg/0.1 ML syringe [facility]: 65688-072-90, Lot: [id number], Expiration date: 03/07/2021 Route: Intravitreal, Site: Right Eye Notes Bevacizumab (Avastin) Intraocular Injection Right Eye - OPHTHALMOLOGY PROCEDURE NOTE PROCEDURE PERFORMED BY: Sharon Hernandez MD RUG FRAME MOUNTER(S): None ATTENDING: Sharon Hernandez MD PROCEDURE DATE: 02/14/2021 PROCEDURE START TIME: 10:25 AM INDICATIONS: Treatment of ICD-10-CM 1. Diabetic macular edema E11.311 [place] BEVACIZUMAB SOLN - OD EYE: Right (OD) [...] THIS PROCEDURE REQUIRE A UNIVERSAL PROTOCOL? Yes. [place] Protocol is required. Pre-procedure verification was completed. [...] saline and an antibiotic drop was instilled. [facility] 02-12-2021 Note Procedure date: 01/18. Intraocular injection: 1.25 mg Bevacizumab (AVASTIN) 2.5mg/0.1 ML syringe ND: [id number], Lot: [id number], Expiration date: 03/01/2021 Route: Intravitreal, Site: Left Eye Notes Bevacizumab (Avastin) Intraocular Injection Left Eye - OPHTHALMOLOGY PROCEDURE NOTE PROCEDURE PERFORMED BY: Sharon Hernandez MD RUG FRAME MOUNTER(S): None ATTENDING: Sharon Hernandez MD PROCEDURE DATE: 02/12/2021 PROCEDURE START TIME: 10:46 AM INDICATIONS: Treatment of ICD-10-CM 1. Diabetic macular edema E11.311 bevacizumab 1.25 MG/0.05 ML Solution [place] BEVACIZUMAB SOLN - OS [place] BEVACIZUMAB SOLN - OS EYE: Left (OS) [...] THIS PROCEDURE REQUIRE A UNIVERSAL PROTOCOL? Yes. [place] Protocol is required. Pre-procedure verification was completed. [...] saline and an antibiotic drop was instilled. [facility] 2021 History of Present illness Narrative HPI [...] without toes, left 01/26/2019 Asthma Atherosclerosis of [place] arteries of left leg with ulceration of [...] 11/11/2017 Corns and callosities 03/13/2016 Diabetes mellitus ([facility]) Dystrophic nail 11/15/2016 Foot cramps Foot ulcer ([facility]) 02/25/2019 OTHER PART OF FOOT Fracture of third toe, left, closed 02/15/2016 Fungal toenail infection 11/15/2016 GERD (gastroesophageal reflux disease) Glaucoma both eyes Heart murmur High cholesterol 03/27/2015 Hyperlipidemia Hypertension Ingrown toenail 10/30/2015 Leg cramps Metatarsalgia of both feet 10/07/2016 Neuropathy Non-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 ([facility]) 09/06/2016 Non-pressure chronic ulcer of left lower leg with fat layer exposed ([facility]) 03/28/2017 Non-pressure chronic ulcer of other part of left foot with fat layer exposed ([facility]) 08/14/2017 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 involvement without evidence of necrosis ([facility]) 03/14/2017 Non-pressure chronic ulcer of right ankle limited to breakdown of skin ([facility]) 08/14/2016 Nondisplaced fracture of proximal phalanx of right great toe 09/19/2017 Onychomycosis 12/13/2015 Osteomyelitis ([facility]) 04/23/2019 Peripheral vascular disease ([facility]) 08/17/2019 Pre-ulcerative calluses 08/13/2018 Right foot ulcer ([facility]) 09/26/2014 Shortness of breath Sprain of calcaneofibular ligament of right ankle 12/05/2017 Swelling of both ankles Swelling of both lower extremities Thyroid disorder 03/27/2015 Tinea unguium 08/13/2018 Traumatic closed fracture of phalanx of foot with minimal displacement 08/11/2017 Traumatic closed nondisplaced fracture of phalanx of right foot with delayed healing 09/08/2017 Type 2 diabetes mellitus with diabetic neuropathy ([facility]) 11/11/2017 Diabetic autonomic (poly) neuropathy Type 2 diabetes mellitus with foot ulcer ([facility]) 06/19/2016 Type 2 diabetes, uncontrolled, with peripheral circulatory disorder ([facility]) 03/28/2017 Xerosis cutis 01/17/2016 Past Surgical History: [...] clean dry and intact [facility] -Follow-up in 2 weeks to review. documented in this encounter [facility] 01-30-2021 History of Present illness Narrative HPI [...] without toes, left 01/26/2019 Asthma Atherosclerosis of [place] arteries of left leg with ulceration of other part of foot ([facility]) 03/14/2017 Back problem Bilateral foot-drop 02/01/2016 Callus of foot 03/16/2019 Cataract Cellulitis and abscess of foot excluding toe 09/26/2014 Cellulitis of great toe, right 10/30/2015 Cellulitis of left foot 08/14/2017 Cellulitis of left lower limb 09/01/2015 Cellulitis of right toe 11/15/2015 Cellulitis of second toe of right foot 11/15/2016 Chronic ulcer of great toe of left foot ([facility]) 03/27/2015 Closed displaced fracture of first metatarsal bone 02/01/2016 Closed displaced fracture of first metatarsal bone of left foot with routine healing 04/17/2015 Contusion of great toe, right 11/04/2016 Contusion of right foot 11/11/2017 Corns and callosities 03/13/2016 Diabetes mellitus ([facility]) Dystrophic nail 11/15/2016 Foot cramps Foot ulcer ([facility]) 02/25/2019 OTHER PART OF FOOT Fracture of third toe, left, closed 02/15/2016 Fungal toenail infection 11/15/2016 GERD (gastroesophageal reflux disease) Glaucoma both eyes Heart murmur High cholesterol 03/27/2015 Hyperlipidemia Hypertension Ingrown toenail 10/30/2015 Leg cramps Metatarsalgia of both feet 10/07/2016 Neuropathy Non-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 ([facility]) 09/06/2016 Non-pressure chronic ulcer of left lower leg with fat layer exposed ([facility]) 03/28/2017 Non-pressure chronic ulcer of other part of left foot with fat layer exposed ([facility]) 08/14/2017 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 involvement without evidence of necrosis ([facility]) 03/14/2017 Non-pressure chronic ulcer of right ankle limited to breakdown of skin ([facility]) 08/14/2016 Nondisplaced fracture of proximal phalanx of right great toe 09/19/2017 Onychomycosis 12/13/2015 Osteomyelitis ([facility]) 04/23/2019 Peripheral vascular disease ([facility]) 08/17/2019 Pre-ulcerative calluses 08/13/2018 Right foot ulcer [...] clean dry and intact [facility] -Follow-up in 1 weeks to review. documented in this encounter [facility] 01-30-2021 Instructions Jef Sierra Jr., DPM - 01/30/2021 10:50 AM EST Continue ashu at home documented in this encounter [facility] 01-24-2021 History of Present illness Narrative HPI [...] without toes, left 01/26/2019 Asthma Atherosclerosis of [place] arteries of left leg with ulceration of [...] 11/11/2017 Corns and callosities 03/13/2016 Diabetes mellitus ([facility]) Dystrophic nail 11/15/2016 Foot cramps Foot ulcer ([facility]) 02/25/2019 OTHER PART OF FOOT Fracture of third toe, left, closed 02/15/2016 Fungal toenail infection 11/15/2016 GERD (gastroesophageal reflux disease) Glaucoma both eyes Heart murmur High cholesterol 03/27/2015 Hyperlipidemia Hypertension Ingrown toenail 10/30/2015 Leg cramps Metatarsalgia of both feet 10/07/2016 Neuropathy Non-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 ([facility]) 09/06/2016 Non-pressure chronic ulcer of left lower leg with fat layer exposed ([facility]) 03/28/2017 Non-pressure chronic ulcer of other part of left foot with fat layer exposed ([facility]) 08/14/2017 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 involvement without evidence of necrosis ([facility]) 03/14/2017 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) 08/14/2016 Nondisplaced fracture of proximal phalanx of right great toe 09/19/2017 Onychomycosis 12/13/2015 Osteomyelitis ([facility]) 04/23/2019 Peripheral vascular disease ([facility]) 08/17/2019 Pre-ulcerative calluses 08/13/2018 Right foot ulcer ([facility]) 09/26/2014 Shortness of breath Sprain of calcaneofibular ligament of right ankle 12/05/2017 Swelling of both ankles Swelling of both lower extremities Thyroid disorder 03/27/2015 Tinea unguium 08/13/2018 Traumatic closed fracture of phalanx of foot with minimal displacement 08/11/2017 Traumatic closed nondisplaced fracture of phalanx of right foot with delayed healing 09/08/2017 Type 2 diabetes mellitus with diabetic neuropathy ([facility]) 11/11/2017 Diabetic autonomic (poly) neuropathy Type 2 diabetes mellitus with foot ulcer ([facility]) 06/19/2016 Type 2 diabetes, uncontrolled, with peripheral circulatory disorder ([facility]) 03/28/2017 Xerosis cutis 01/17/2016 Past Surgical History: [...] weeks to review. documented in this encounter [facility] 01-16-2021 History of Present illness Narrative HPI [...] without toes, left 01/26/2019 Asthma Atherosclerosis of [place] arteries of left leg with ulceration of other part of foot ([facility]) 03/14/2017 Back problem Bilateral foot-drop 02/01/2016 Callus of foot 03/16/2019 Cataract Cellulitis and abscess of foot excluding toe 09/26/2014 Cellulitis of great toe, right 10/30/2015 Cellulitis of left foot 08/14/2017 Cellulitis of left lower limb 09/01/2015 Cellulitis of right toe 11/15/2015 Cellulitis of second toe of right foot 11/15/2016 Chronic ulcer of great toe of left foot ([facility]) 03/27/2015 Closed displaced fracture of first metatarsal bone 02/01/2016 Closed displaced fracture of first metatarsal bone of left foot with routine healing 04/17/2015 Contusion of great toe, right 11/04/2016 Contusion of right foot 11/11/2017 Corns and callosities 03/13/2016 Diabetes mellitus ([facility]) Dystrophic nail 11/15/2016 Foot cramps Foot ulcer ([facility]) 02/25/2019 OTHER PART OF FOOT Fracture of third toe, left, closed 02/15/2016 Fungal toenail infection 11/15/2016 GERD (gastroesophageal reflux disease) Glaucoma both eyes Heart murmur High cholesterol 03/27/2015 Hyperlipidemia Hypertension Ingrown toenail 10/30/2015 Leg cramps Metatarsalgia of both feet 10/07/2016 Neuropathy Non-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 ([facility]) 09/06/2016 Non-pressure chronic ulcer of left lower leg with fat layer exposed ([facility]) 03/28/2017 Non-pressure chronic ulcer of other part of left foot with fat layer exposed ([facility]) 08/14/2017 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 involvement without evidence of necrosis ([facility]) 03/14/2017 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) 08/14/2016 Nondisplaced fracture of proximal phalanx of right great toe 09/19/2017 Onychomycosis 12/13/2015 Osteomyelitis ([facility]) 04/23/2019 Peripheral vascular disease ([facility]) 08/17/2019 Pre-ulcerative calluses 08/13/2018 Right foot ulcer ([facility]) 09/26/2014 Shortness of breath Sprain of calcaneofibular ligament of right ankle 12/05/2017 Swelling of both ankles Swelling of both lower extremities Thyroid disorder 03/27/2015 Tinea unguium 08/13/2018 Traumatic closed fracture of phalanx of foot with minimal displacement 08/11/2017 Traumatic closed nondisplaced fracture of phalanx of right foot with delayed healing 09/08/2017 Type 2 diabetes mellitus with diabetic neuropathy ([facility]) 11/11/2017 Diabetic autonomic (poly) neuropathy Type 2 diabetes mellitus with foot ulcer ([facility]) 06/19/2016 Type 2 diabetes, uncontrolled, with peripheral circulatory disorder ([facility]) 03/28/2017 Xerosis cutis 01/17/2016 Past Surgical History: [...] weeks to review. documented in this encounter [facility] 01-16-2021 Instructions Jef Sierra Jr., DPM - 01/16/2021 11:27 AM EST Keep bandage clean dry and intat documented in this encounter [facility] 01-09-2021 History of Present illness Narrative HPI [...] without toes, left 01/26/2019 Asthma Atherosclerosis of [place] arteries of left leg with ulceration of [...] right great toe 09/19/2017 Onychomycosis 12/13/2015 Osteomyelitis ([facility]) 04/23/2019 Peripheral vascular disease ([facility]) 08/17/2019 Pre-ulcerative calluses 08/13/2018 Right foot ulcer ([facility]) 09/26/2014 Shortness of breath Sprain of calcaneofibular [...] weeks to review. documented in this encounter [facility] 01-09-2021 Instructions Jef Sierra Jr., DPM - 01/09/2021 8:49 AM EST Keep bandage clean dry and intact documented in this encounter [facility] 01-02-2021 Instructions Jef Sierra Jr., DPM - 01/02/2021 9:19 AM EST Keep bandages clean dry and intact for week documented in this encounter [facility] 01-02-2021 History of Present illness Narrative HPI [...] without toes, left 01/26/2019 Asthma Atherosclerosis of [place] arteries of left leg with ulceration of other part of foot ([facility]) 03/14/2017 Back problem Bilateral foot-drop 02/01/2016 Callus [...] 11/11/2017 Corns and callosities 03/13/2016 Diabetes mellitus ([facility]) Dystrophic nail 11/15/2016 Foot cramps Foot ulcer ([facility]) 02/25/2019 OTHER PART OF FOOT Fracture of [...] left lower leg with fat layer exposed ([facility]) 03/28/2017 Non-pressure chronic ulcer of other part of left foot with fat layer exposed (HCC) 08/14/2017 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 involvement without evidence of necrosis ([facility]) 03/14/2017 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) 08/14/2016 Nondisplaced fracture of proximal phalanx of right great toe 09/19/2017 Onychomycosis 12/13/2015 Osteomyelitis ([facility]) 04/23/2019 Peripheral vascular disease ([facility]) 08/17/2019 Pre-ulcerative calluses 08/13/2018 Right foot ulcer ([facility]) 09/26/2014 Shortness of breath Sprain of calcaneofibular [...] Type 2 diabetes mellitus with foot ulcer ([facility]) 06/19/2016 Type 2 diabetes, uncontrolled, with peripheral circulatory disorder ([facility]) 03/28/2017 Xerosis cutis 01/17/2016 Past Surgical History: [...] weeks to review. documented in this encounter [facility] 12-27-2020 Note Procedure date: 12/18. Intraocular injection: 1.25 mg Bevacizumab (AVASTIN) 2.5mg/0.1 ML syringe [facility]: 85923-540-76, Lot: [id number], Expiration date: 12/29/2020 Route: Intravitreal, Site: Left Eye Notes Bevacizumab (Avastin) Intraocular Injection Left Eye - OPHTHALMOLOGY PROCEDURE NOTE PROCEDURE PERFORMED BY: Sharon Hernandez MD RUG FRAME MOUNTER(S): None ATTENDING: Sharon Hernandez MD PROCEDURE DATE: 12/27/2020 PROCEDURE START TIME: 10:17 AM INDICATIONS: Treatment of ICD-10-CM 1. Diabetic macular edema E11.311 OCT/HRT [place] OU FUNDUS PHOTOGRAPHY-OU [place] BEVACIZUMAB SOLN - OS NH BEVACIZUMAB SOLN - OS CANCELED: NH BEVACIZUMAB SOLN - OD EYE: Left (OS) [...] THIS PROCEDURE REQUIRE A UNIVERSAL PROTOCOL? Yes. [place] Protocol is required. Pre-procedure verification was completed. [...] saline and an antibiotic drop was instilled. [facility] 12-27-2020 Note Procedure date: 12/18. Right Eye [...] Recommendation for management is to continue treatment. [facility] 12-19-2020 Instructions Jef Sierra Jr., DPM - 12/19/2020 11:28 AM EDT Keep bandage clean dry and intact documented in this encounter [facility] 12-19-2020 History of Present illness Narrative HPI [...] without toes, left 01/26/2019 Asthma Atherosclerosis of [place] arteries of left leg with ulceration of [...] of left ankle with fat layer exposed ([facility]) 09/06/2016 Non-pressure chronic ulcer of left lower leg with fat layer exposed ([facility]) 03/28/2017 Non-pressure chronic ulcer of other part of left foot with fat layer exposed ([facility]) 08/14/2017 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 involvement without evidence of necrosis ([facility]) 03/14/2017 Non-pressure chronic ulcer of right ankle limited to breakdown of skin ([facility]) 08/14/2016 Nondisplaced fracture of proximal phalanx of right great toe 09/19/2017 Onychomycosis 12/13/2015 Osteomyelitis ([facility]) 04/23/2019 Peripheral vascular disease ([facility]) 08/17/2019 Pre-ulcerative calluses 08/13/2018 Right foot ulcer ([facility]) 09/26/2014 Shortness of breath Sprain of calcaneofibular ligament of right ankle 12/05/2017 Swelling of both ankles Swelling of both lower extremities Thyroid disorder 03/27/2015 Tinea unguium 08/13/2018 Traumatic closed fracture of phalanx of foot with minimal displacement 08/11/2017 Traumatic closed nondisplaced fracture of phalanx of right foot with delayed healing 09/08/2017 Type 2 diabetes mellitus with diabetic neuropathy ([facility]) 11/11/2017 Diabetic autonomic (poly) neuropathy Type 2 diabetes mellitus with foot ulcer ([facility]) 06/19/2016 Type 2 diabetes, uncontrolled, with peripheral circulatory disorder ([facility]) 03/28/2017 Xerosis cutis 01/17/2016 Past Surgical History: [...] Friends and Family: Not on file Attends Denominational Services: Not on file Active Member of [...] weeks to review. documented in this encounter [facility] 12-13-2020 Note Procedure date: 11/18. Right Eye [...] Recommendation for management is to continue treatment. [facility] 12-13-2020 Note Procedure date: 11/18. Right Eye Quality was good. Findings include subretinal fluid. Interval change is same. Recommendation for management is to continue treatment. Left Eye Quality was good. Findings include subretinal fluid. Interval change is same. Recommendation for management is to continue treatment. [facility] 12-13-2020 Note Procedure date: 11/18. Intraocular injection: 1.25 mg Bevacizumab (AVASTIN) 2.5mg/0.1 ML syringe [facility]: 60886-695-94, Lot: [id number], Expiration date: 12/26/2020 Route: Intravitreal, Site: Right Eye Notes Bevacizumab (Avastin) Intraocular Injection Right Eye - OPHTHALMOLOGY PROCEDURE NOTE PROCEDURE PERFORMED BY: Sharon Hernandez MD RUG FRAME MOUNTER(S): None ATTENDING: Sharon Hernandez MD PROCEDURE DATE: 12/13/2020 PROCEDURE START TIME: 10:05 AM INDICATIONS: Treatment of ICD-10-CM 1. Diabetic macular edema E11.311 bevacizumab 1.25 MG/0.05 ML Solution [place] BEVACIZUMAB SOLN - OD OCT/HRT [place] OU FUNDUS PHOTOGRAPHY-OU [place] BEVACIZUMAB SOLN - OD OCT/HRT [place] OU [...] THIS PROCEDURE REQUIRE A UNIVERSAL PROTOCOL? Yes. [place] Protocol is required. Pre-procedure verification was completed. [...] saline and an antibiotic drop was instilled. [facility] 10-17-2020 History of Present illness Narrative Left [...] as elevated morbidity. documented in this encounter [facility] 10-11-2020 Note Procedure date: 10/10. Right Eye [...] all questions answered Olga Lidia Matos M.D. Chain Puller of Ophthalmology Glaucoma Division [facility] [place] [facility] Department of Ophthalmology and Visual Science [...] OS with Dr. Hernandez. Additional details from [facility] HPI reviewed and I agree with documentation Ocular Medications: 10/10/2020 Exam: CCT: CI=870 m; BR=971 m IOP: OD: 25, OS: 16, 10/10/2020 [...] time was spent with patient performing the chiller technician work of this visit. documented in this encounter [facility] 10-10-2020 Instructions Olga Lidia Matos MD - 10/10/2020 1:45 PM EDT Right Eye: Dorzolamide/Timolol 2 times a day Rhopressa 1 drop at bedtime Left Eye: Dorzolamide/Timolol 2 times a day documented in this encounter [facility] 10-03-2020 History of Present illness Narrative I was available on site at [place] for any urgent infusion issues. Jovon Bowers MD Professor of Neurology Director, Neuromuscular Division documented in this encounter [facility] 09-26-2020 History of Present illness Narrative [facility] [...] UNIT/ML Solution Pen-injector injection, 3 samples given--Lot [id number], exp 10/2021, Disp: 3 Prefilled Pen/Syringe, Rfl: 0 Insulin Lispro, 1 Unit Dial, 100 UNIT/ML Solution Pen-injector, Use less than 30 units daily with sliding scale., Disp: 5 Prefilled Pen/Syringe, Rfl: 3 Multiple Vitamin (MULTI-DAY PO), take 1 tablet by mouth daily.., Disp: , Rfl: tiZANidine 4 MG Tab tablet, tiZANidinetiZANidine (ZANAFLEX) 4 MG tablet as needed. Lolly Haq [facility] ([id number]), Disp: , Rfl: acetaZOLAMIDE 250 MG tablet, Take 1 tablet by mouth 2 times daily. 90 day supply (Patient not taking: Reported on 09/13/2020), Disp: 180 tablet, Rfl: 1 cyanocobalamin 1000 MCG Tab, Take 2 tablets by mouth daily., Disp: 60 tablet, Rfl: 11 Insulin Degludec (Tresiba FlexTouch) 100 UNIT/ML Solution Pen-injector injection, 3 Samples given [id number], Exp 10/2021 (Patient not taking: Reported on 09/26/2020), Disp: 9 mL, Rfl: 0 Insulin Lispro, 1 Unit Dial, (HumaLOG KwikPen) 100 UNIT/ML Solution Pen-injector, Sample given [id number], exp 09/2022 (Patient not taking: Reported on 09/13/2020), Disp: 1 Prefilled Pen/Syringe, Rfl: 0 Insulin Lispro, 1 Unit Dial, (HumaLOG KwikPen) 100 UNIT/ML Solution Pen-injector, Sample given [id number], Exp-09/2022 (Patient not taking: Reported on 09/26/2020), [...] Social Gatherings with Friends and Family: Attends Denominational Services: Active Member of Clubs or Organizations: Attends Club or Organization Meetings: Marital Status: Intimate Partner Violence: Fear of Current or Ex-Partner: Emotionally Abused: Physically Abused: Sexually Abused: documented in this encounter [facility] 09-26-2020 Instructions Franck Mtz MD - 09/26/2020 [...] results come back. documented in this encounter [facility] 09-21-2020 History of Present illness Narrative The patient tolerated the infusion well without any complications. documented in this encounter [facility] 09-14-2020 History of Present illness Narrative HPI [...] without toes, left 01/26/2019 Asthma Atherosclerosis of [place] arteries of left leg with ulceration of [...] 11/11/2017 Corns and callosities 03/13/2016 Diabetes mellitus ([facility]) Dystrophic nail 11/15/2016 Foot cramps Foot ulcer [...] of left foot with fat layer exposed ([facility]) 08/14/2017 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 involvement without evidence of necrosis ([facility]) 03/14/2017 Non-pressure chronic ulcer of right ankle limited to breakdown of skin ([facility]) 08/14/2016 Nondisplaced fracture of proximal phalanx of right great toe 09/19/2017 Onychomycosis 12/13/2015 Osteomyelitis ([facility]) 04/23/2019 Peripheral vascular disease ([facility]) 08/17/2019 Pre-ulcerative calluses 08/13/2018 Right foot ulcer ([facility]) 09/26/2014 Shortness of breath Sprain of calcaneofibular ligament of right ankle 12/05/2017 Swelling of both ankles Swelling of both lower extremities Thyroid disorder 03/27/2015 Tinea unguium 08/13/2018 Traumatic closed fracture of phalanx of foot with minimal displacement 08/11/2017 Traumatic closed nondisplaced fracture of phalanx of right foot with delayed healing 09/08/2017 Type 2 diabetes mellitus with diabetic neuropathy ([facility]) 11/11/2017 Diabetic autonomic (poly) neuropathy Type 2 diabetes mellitus with foot ulcer ([facility]) 06/19/2016 Type 2 diabetes, uncontrolled, with peripheral circulatory disorder ([facility]) 03/28/2017 Xerosis cutis 01/17/2016 Past Surgical History: [...] Social Gatherings with Friends and Family: Attends Denominational Services: Active Member of Clubs or Organizations: [...] need for procedure. documented in this encounter [facility] 09-13-2020 History of Present illness Narrative History [...] a fist. She is currently using the [employer] sensor system to check her blood sugars when she can afford to pay shi for the sensors. She is attempting to wear the sensors as much as possible since she cannot do fingersticks, she is paying shi for the sensors. She has neuropathy in a stocking glove distribution. She continues to see a neurologist. She is also seeing a laboratory apparatus glass blower and wound care. She has a follow-up [...] in her life. Has not been scanning juanpablo CGM frequently but will take Humalog intermittently [...] feels. To get her in touch with [employer], however she does not answer her phone if she does not recognize the number, so likely has been missing their calls. We will coordinate with [employer]; the tracking features of [employer] will undoubtedly help us help her. Hypothyroidism: [...] The patient is nervous/anxious. 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 Diabetic macular edema- Primary [facility] 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 Diabetic macular edema- [facility] 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 Diabetic macular edema- Primary [facility] Diagnosis 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 Diabetic macular edema- Primary [facility] Diagnosis Primary open angle glaucoma (POAG) of right eye, severe stage- Primary Primary open angle glaucoma (POAG) of left eye, severe stage Diabetic macular edema Pseudophakia Lens replaced by other means [facility] Diagnosis Non-intractable vomiting with nausea, unspecified vomiting type- Primary Altered mental status, unspecified altered mental status type Leukocytosis, unspecified type documented in this encounter [facility] Phone: evaluation note* Diagnosis Sepsis (HCC)- Primary Stupor Other alteration of consciousness Encephalitis Unspecified cause of encephalitis, myelitis, and encephalomyelitis Acute osteomyelitis of cervical spine (HCC) 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 MSSA (methicillin susceptible Staphylococcus aureus) septicemia ([facility]) Methicillin susceptible staphylococcus aureus septicemia Primary hypertension [...] Other drug allergy Pyogenic inflammation of bone ([facility]) Unspecified osteomyelitis, site unspecified Acute intractable headache documented in this encounter [employer] Phone: evaluation note* Diagnosis COVID-19- Primary Pneumonia of left lower lobe due to infectious organism Hypokalemia Hypopotassemia Hypomagnesemia Disorders of magnesium metabolism USP (current) use of antibiotics documented in this encounter [employer] Phone: evaluation note* Diagnosis COVID- Primary Encephalopathy Encephalopathy, unspecified 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 Hypokalemia Hypopotassemia Primary hypertension Unspecified essential hypertension Type 2 diabetes mellitus with diabetic polyneuropathy ([facility]) Type II or unspecified type diabetes mellitus with neurological manifestations, not stated as uncontrolled Hypothyroidism Unspecified hypothyroidism Hypomagnesemia Disorders of magnesium metabolism CIDP (chronic inflammatory demyelinating polyneuropathy) ([facility]) Chronic inflammatory demyelinating polyneuritis Bacteremia MSSA (methicillin susceptible Staphylococcus aureus) septicemia ([facility]) Methicillin susceptible staphylococcus aureus septicemia Bandemia CRP elevated Elevated C-reactive protein (CRP) Metabolic encephalopathy Normocytic anemia Anemia, unspecified Acute respiratory failure with hypoxemia ([facility]) Septic arthritis of cervical spine ([facility]) Pyogenic arthritis, other specified sites Atlantoaxial instability Other joint derangement, not elsewhere classified, other specified site ACP (advance care planning) Other specified counseling Goals of care, counseling/discussion Other specified counseling Encounter for palliative care Feeding difficulties Feeding difficulties and mismanagement On tube feeding diet Pathological fracture of other site, unspecified pathological cause, initial encounter documented in this encounter [employer] Phone: evaluation noteNo assessment information available [facility] Work Phone: Evaluation note* Diagnosis Atlantoaxial instability Other joint derangement, not elsewhere classified, other specified site S/P cervical spinal fusion Arthrodesis status documented in this encounter [employer] Phone: evaluation note* Diagnosis S/P cervical spinal fusion Arthrodesis status documented in this encounter [employer] Phone: Assessments Diagnosis Calf ulcer, left, limited [...] use of insulin Luis Miguel Kaur MD [address] [place] [id number] History of Present Illness * Luis Miguel [...] a neurologist. 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 [...] FoundDocuments on File Type Date Recorded Patient Library Attendant Expl anation Advance Directives and Livin g Will 12/20/2019 3:00 PM Documents on File Type Date Recorded Patient Library Attendant Expl anation ACP-Advance Directive ACP-Power of Pet Caretaker Latest Code Status on File Code Status [...] Documents on File Type Date Recorded Patient Library Attendant Expl anation ACP-Advance Directive 08/13/2021 4:27 PM [...] be rechecked at the Emergency Department. [ [address] [place] [address]: [place] Office - [address] [address] - Phone Number [phone] [place] Office - [address] [facility] [address] - Phone Number [phone] ] Rest and limit exertion / strenous activity. RETURN if symptoms CHANGE, NOT IMPROVING or need help.Take Medications as prescribed (if prescribed - Please take or use as directed) * Attachments The following attachments cannot be sent through Care Everywhere. * Cellulitis (Eritrean) in this encounter* Instructions* Andres Lubin MD [...] sent through Care Everywhere. * Nail Avulsion (Eritrean) documented in this encounter Additional Source Comments [...] Diagnoses CIDP (chronic inflammatory demyelinating polyneuropathy) [facility] [address] [facility] [id number] [place] [id number] Infusion Suite [facility] [place] [address] Referral ID Status Reason Start Date Expiration Date V isits Requested Visits Authorized [id number] Auth Not Needed 06/24/2018 100 100 Reason Comments Follow-up Diabetes Thyroid Problem Reason Comments Infusion Visit IVIG Specialty Diagnoses / Procedures Referred By Contac t Referred To Contact Diagnoses CIDP (chronic inflammatory demyelinating polyneuropathy) [facility] [address] [facility] [id number] [place] [address] Infusion [address] [facility] [address] [place] [address] Reason Comments Follow-up Reason Comments Glaucoma Follow-up Reason Comments Nausea Pt came from [facility]. Per EMS she was outside and was brought back inside they were unaware she was outside. Per [facility] she is having bizarre behavior Emesis Altered Mental Status Reason Comments Altered Mental Status Specialty Diagnoses / Procedures Referred By Contac t Referred To Contact Diagnoses Altered mental state [facility] [address] [place] [address] [facility] [id number] [place] [address] Referral ID Status Reason Start Date Expiration Date Visits Re quested Visits Authorized [id number] 1 1 Reason Comments Hypertension Patient was at [facility] for blood transfusion/low potassium transferred to ED for evaluation INFORMATION SOURCE (unrecogn ized section and content) DATE CREATED AUTHOR 04/08/2018 [facility] DATE CREATED AUTHOR AUTHOR'S ORGANIZ ATION 06/07/2019 [facility] DATE CREATED AUTHOR AUTHOR'S ORGANIZ ATION 12/25/2019 [facility] DATE CREATED AUTHOR AUTHOR'S ORGANIZ ATION 02/13/2020 [facility] DATE CREATED AUTHOR AUTHOR'S ORGANIZ ATION 04/18/2021 [facility] DATE CREATED AUTHOR AUTHOR'S ORGANIZ ATION 05/02/2021 [facility] DATE CREATED AUTHOR AUTHOR'S ORGANIZ ATION 05/07/2021 [facility] DATE CREATED AUTHOR AUTHOR'S ORGANIZ ATION 05/09/2021 [facility] DATE CREATED AUTHOR AUTHOR'S ORGANIZ ATION 05/15/[address] [facility] DATE CREATED AUTHOR AUTHOR'S ORGANIZ ATION 06/01/2021 [facility] DATE CREATED AUTHOR AUTHOR'S ORGANIZ ATION 06/13/2021 [facility] DATE CREATED AUTHOR AUTHOR'S ORGANIZ ATION 09/05/2021 [facility] DATE CREATED AUTHOR AUTHOR'S ORGANIZ ATION 10/30/2021 [facility] DATE CREATED AUTHOR AUTHOR'S ORGANIZ ATION 11/27/2021 [facility] DATE CREATED AUTHOR AUTHOR'S ORGANIZ ATION 12/10/2021 [facility] DATE CREATED AUTHOR AUTHOR'S ORGANIZ ATION 11/25/2022 [facility] DATE CREATED AUTHOR AUTHOR'S ORGANIZ ATION 01/26/2023 [facility] DATE CREATED AUTHOR AUTHOR'S ORGANIZ ATION 08/20/2023 [facility] DATE CREATED AUTHOR AUTHOR'S ORGANIZ ATION 11/27/2023 [facility] Lindsey Bradshaw LPN - 05/29/2018 9:54 [...] Care Teams (unrecognized sec tion and content) Roving Teller Relationship Specialty Start Date End Date Neri Santa, DO [address] [place] [address] PCP - General Family Medicine 03/28/17 Pili Gilliam, MARK Consulting Physician Podiatry 04/07/17 Reji Miramontes III, DO Consulting Physician Vascular Surgery 04/07/17 Roving Teller Relationship Specialty Start Date End Date Neri Santa, DO [address] [place] [address] PCP - General Family Medicine 03/28/17 Pili Gilliam, MARK Consulting Physician Podiatry 04/07/17 Reji Miramontes III, DO Consulting Physician Vascular Surgery 04/07/17 Roving Teller Relationship Specialty Start Date End Date Neri Santa, DO [address] [place] [address] PCP - General Family Medicine 03/28/17 Pili Gilliam, MARK Consulting Physician Podiatry 04/07/17 Reji Miramontes III, DO Consulting Physician Vascular Surgery 04/07/17 Roving Teller Relationship Specialty Start Date End Date Neri Santa, DO [address] [place] [address] PCP - General Family Medicine 03/28/17 Pili Gilliam, SINDYM Consulting Physician Podiatry 04/07/17 Reji Miramontes III, DO Consulting Physician Vascular Surgery 04/07/17 Roving Teller Relationship Specialty Start Date End Date Neri Santa, DO [address] [place] [address] PCP - General Family Medicine 03/28/17 Pili Gilliam, DPM Consulting Physician Podiatry 04/07/17 Reji Miramontes III, DO Consulting Physician Vascular Surgery 04/07/17 Roving Teller Relationship Specialty Start Date End Date Neri Santa, DO [address] [place] [address] PCP - General Family Medicine 03/28/17 Pili Gilliam, DPM Consulting Physician Podiatry 04/07/17 Reji Miramontes III, DO Consulting Physician Vascular Surgery 04/07/17 Roving Teller Relationship Specialty Start Date End Date Neri Santa, DO [address] [place] [address] PCP - General Family Medicine 03/06/17 Adilson Hernandez MD [address] [place] [address] Ophthalmology 07/18/17 Kartik Mejia MD [address] [place] [address] Pain Medicine 12/25/17 Tisha Arriaga MD [address] [place] [address] Neurologist Neurology 07/18/17 Luis Miguel Kaur MD [address] [place] [address] Hand Frame Surgical Elastic Knitter Endocrinology, Diabetes & Metabolism 03/06/17 Chris Zavala, OD [address] [place] [address] Optometry 03/15/20 Roving Teller Relationship Specialty Start Date End Date Arina, Neri Parker, [address] [place] [address] PCP - General Family Medicine 03/06/17 Adilson Hernandez MD [address] [place] [address] Ophthalmology 07/18/17 Kartik Mejia MD [address] [place] [address] Pain Medicine 12/25/17 Tisha Arriaga MD [address] [place] [address] Neurologist Neurology 07/18/17 Luis Miguel Kaur MD [address] [place] [address] Hand Frame Surgical Elastic Knitter Endocrinology, Diabetes & Metabolism 03/06/17 GoodhueChris, OD [address] [place] [address] Optometry 03/15/20 Roving Teller Relationship Specialty Start Date End Date Neri Santa, DO [address] [place] [address] PCP - General Family Medicine 03/06/17 Adilson Hernandez MD [address] [place] [address] Ophthalmology 07/18/17 Kartik Mejia MD [address] [place] [address] Pain Medicine 12/25/17 Tisha Arriaga MD [address] [place], [place] [id number] Neurologist Neurology 07/18/17 Luis Miguel Kaur MD [address] [place] [address] Hand Frame Surgical Elastic Knitter Endocrinology, Diabetes & Metabolism 03/06/17 Lucas Chris Sousa, OD [address] [place] [address] Optometry 03/15/20 Roving Teller Relationship Specialty Start Date End Date Neri Santa, DO [address] [place] [address] PCP - General Family Medicine 03/06/17 Adilson Hernandez MD [address] [place] [address] Ophthalmology 07/18/17 Kartik Mejia MD [address] [place] [address] Pain Medicine 12/25/17 Tisha Arriaga MD [address] [place] [address] Neurologist Neurology 07/18/17 Luis Miguel Kaur MD [address] [place] [address] Hand Frame Surgical Elastic Knitter Endocrinology, Diabetes & Metabolism 03/06/17 Chris Zavala, OD [address] [place] [address] Optometry 03/15/20 Roving Teller Relationship Specialty Start Date End Date Neri Santa DO [address] [place] [address] PCP - General Family Medicine 03/06/17 Adilson Hernandez MD [address] [place] [address] Ophthalmology 07/18/17 Kartik Mejia MD [address] [place] [address] Pain Medicine 12/25/17 Tisha Arriaga MD [address] [place] [address] Neurologist Neurology 07/18/17 Luis Miguel Kaur MD [address] [place] [address] Hand Frame Surgical Elastic Knitter Endocrinology, Diabetes & Metabolism 03/06/17 Chris Zavala, OD [address] [place] [address] Optometry 03/15/20 Roving Teller Relationship Specialty Start Date End Date Neri Santa DO [address] [place] [address] PCP - General Family Medicine 03/06/17 Adilson Hernandez MD [address] [place] [address] Ophthalmology 07/18/17 Kartik Mejia MD [address] [place] [address] Pain Medicine 12/25/17 Tisha Arriaga MD [address] [place] [address] Neurologist Neurology 07/18/17 Luis Miguel Kaur MD [address] [place] [address] Hand Frame Surgical Elastic Knitter Endocrinology, Diabetes & Metabolism 03/06/17 Chris Zavala, OD [address] [place] [address] Optometry 03/15/20 Roving Teller Relationship Specialty Start Date End Date Neri Santa, [address] [facility] [place] [address] PCP - General Family Medicine 03/06/17 Adilson Hernandez MD [address] [place] [address] Ophthalmology 07/18/17 Kartik Mejia MD [address] [place] [address] Pain Medicine 12/25/17 Tisha Arriaga MD [address] [place] [address] Neurologist Neurology 07/18/17 Luis Miguel Kaur MD [address] [place] [address] Hand Frame Surgical Elastic Knitter Endocrinology, Diabetes & Metabolism 03/06/17 Chris Zavala, OD [address] [place] [address] Optometry 03/15/20 Roving Teller Relationship Specialty Start Date End Date Sr Arina Neri Elena, DO [address] [place] [facility] [place] [facility] [place] [address] PCP - General Family Medicine 07/19/18 Roving Teller Relationship Specialty Start Date End Date Sr Arina Neri Elena, DO [address] [place] [facility] [place] [address] PCP - General Family Medicine 07/19/18 Roving Teller Relationship Specialty Start Date End Date Sr Arina Neri Elena, DO [address] [place] [facility] [place] [address] PCP - General Family Medicine 07/19/18 Roving Teller Relationship Specialty Start Date End Date Sr Arina Neri Parker, DO [address] [place] [facility] [place] [address] PCP - General Family Medicine 07/19/18 Team Status: Inactive Member Role Status Dates Rufus Shen II MD Attending Provider Active Roving Teller Relationship Specialty Start Date End Date Ganga Savage MD [address] [place] [address] PCP - General Internal Medicine 08/14/21 Roving Teller Relationship Specialty Start Date End Date Ganga Savage MD [address] [place] [address] PCP - General Internal Medicine 08/14/21 Roving Teller Relationship Specialty Start Date End Date Ganga Savage MD [address] [place] [address] PCP - General Internal Medicine 08/14/21 Roving Teller Relationship Specialty Start Date End Date Neri Santa MD [address] [place] [facility] [place] [address] PCP - General Family Medicine 08/12/22 Scheduled [...] 10 mg, IntraVENous, ONCE, 1 dose, On Noehmy 06/28/21 at 0945 0946 (Given - Provid [...] Provider: Maggi Quiñones RN)0949 (Given - Provider: Sebas Arnold RN)1621 (Given - Provider: Sebas Arnold [...] Camilo Hernandez RN)1759 (Given - Provider: Camilo Hernandez RN) 08 (Given - Provider: Sebas Arnold [...] Held - Provider: Kam Prado APRN - SUPERVISOR DETASSELING CREW) 09 (Held - Provider: Sebas Arnold RN - Reason: Order parameters not met)170 (Unheld by provider - Provider: Becik Chang MD) 0915 (Given - Provider: Sebas [...] per hour. 1244 (New Bag - Provider: Sebas Arnold RN)1357 (Stopped - Provider: Sebas Arnold [...] RN)2051 (Given - Provider: Maggi Multani RN) 0801 (Given - Provider: Yolanda De [...] Veliz RN)2200 (Due - Provider: Linn Duvall [facility]) insulin glargine (LANTUS) injection vial 10 Units [...] parameters not met)0812 (Given - Provider: Yolanda De La Fuente RN - Comment: bs 202)165 (Given [...] Nany Newman RN)1046 (New Bag - Provider: Aleajndra Goldberg RN)1146 (Stopped - Provider: Alejandra Goldberg RN)1206 (Stopped - Provider: Alejandra Goldberg RN)1608 (New Bag - Provider: Alejandra [...] RN) 2199 (Due - Provider: Linn Duvall [facility]) valproic acid (DEPAKENE) 250 MG/5ML oral solution [...] the iv AB is over - keep mcc suppression 60 tablet 11 07/09/2021 07/09/2021 Prescription [...] BE BASED ON THE PRIMARY CLINICAL RECORDS. [employer] provides no warranty or guarantee of the accuracy or completeness of information in this document.
[2024-03-11 05:37] VITALS: BP 132/84; PULSE 87; O2SAT 97
[2024-03-11 07:48] VITALS: BP 136/88; PULSE 88; O2SAT 98
== END 2024-03-11 09:12 | disposition home or self-care (01) ==
PROVIDERS: Emergency Provider Emergency Medicine; PCP Family Medicine
DX: M54.50 Low back pain, unspecified (principal); Z91.81 History of falling
CPT/HCPCS: 72131; 99284

== ENCOUNTER 2024-05-03 19:12 | Emergency (ER) | payer MEDICARE, OTHER, MEDICAID, SELFPAY ==
[2024-05-03] VITALS (16 sets, daily range): BP systolic 153–188; BP diastolic 74–92; PULSE 82–89; TEMP 36.9; O2SAT 96–99; BMI 27.4
--- NOTE | 2024-05-03 19:19 | ED.FALL1 ---
Documented by User: COY Garcia 05/03/24 21:07 HPI HPI - Fall General Chief Complaint: Fall Stated Complaint: FALL Time Seen by Provider: 05/03/24 19:14 Source: patient Mode of arrival: ambulance History of Present Illness HPI Narrative: Patient is a 59-year-old female who presents to the emergency department from [facility] where she is a resident for evaluation of neck pain after a fall 3 days ago. Patient is alert and oriented, she states that she has been having increasing neck pain. She was using her walker to transfer in her room, she states there is not much room between the bed and the wall. She states she was looking at the television in her room when she tripped and fell. She did hit her head. She has healing ecchymosis to the right arm. She takes an aspirin daily, no other blood thinners. She states she was feeling fuzzy today. No medications taken prior to arrival for symptoms. She was able to ambulate today with her walker. Related Data Home Medications ?Medication ?Instructions ?Recorded ?Confirmed aspirin 325 mg tablet 325 mg PO DAILY 12/19/23 03/10/24 brimonidine 0.2 % eye drops 1 drp ophthalmic (eye) BID 12/19/23 03/10/24 carvedilol 12.5 mg tablet 12.5 mg PO Q12H 12/19/23 03/10/24 cholecalciferol (vitamin D3) 10 400 unit PO DAILY 12/19/23 03/10/24 mcg (400 unit) tablet (Vitamin D3) divalproex 500 mg tablet,delayed 500 mg PO DAILY 12/19/23 03/10/24 release docusate sodium 100 mg capsule 100 mg PO BID PRN constipation 12/19/23 03/10/24 duloxetine 60 mg capsule,delayed 60 mg PO DAILY 12/19/23 03/10/24 release ferrous sulfate 325 mg (65 mg 325 mg PO DAILY 12/19/23 03/10/24 iron) tablet fluocinonide 0.05 % topical 1 applic topical DAILY PRN rash 12/19/23 12/20/23 ointment guaifenesin 100 mg/5 mL oral liquid 200 mg PO Q6H PRN congestion 12/19/23 12/19/23 guaifenesin 600 mg tablet, 600 mg PO BID PRN congestion 12/19/23 03/10/24 extended release 12 hr (Mucinex) insulin glargine 100 unit/mL (3 15 unit subcut DAILY 12/19/23 03/10/24 mL) subcutaneous pen (Lantus Solostar U-100 Insulin) levothyroxine 100 mcg tablet 100 mcg PO DAILY 12/19/23 03/10/24 loperamide 2 mg capsule 2 mg PO Q6H PRN loose stool 12/19/23 03/10/24 multivitamin 1 tab PO DAILY 12/19/23 03/10/24 omeprazole 40 mg capsule,delayed 40 mg PO DAILY 12/19/23 03/10/24 release potassium chloride 20 mEq 20 meq PO DAILY 12/19/23 03/10/24 tablet,extended release(part/cryst) sucralfate 100 mg/mL oral 1 g PO TID 12/19/23 03/10/24 suspension (Carafate) tramadol 50 mg tablet 50 mg PO Q12H 12/19/23 03/10/24 cholecalciferol (vitamin D3) 25 25 mcg PO DAILY 03/10/24 03/10/24 mcg (1,000 unit) tablet Allergies Allergy/AdvReac Type Severity Reaction Status Date / Time cephalexin Allergy Unknown Verified 12/19/23 20:32 moxifloxacin (From Avelox) Allergy Unknown Verified 12/19/23 20:32 polyethylene glycol 3350 Allergy Unknown Verified 12/19/23 20:32 (From Miralax) Opioid HPI Opioid Management Most Recent Pain and Opioid Data: Last Pain Scale 2 05/03/24 21:32 05/03/24 Last ED Pain Assessment 05/03/24 21:32 Last MAR Pain Assessment 05/03/24 19:42 Review of Systems ROS Constitutional Denies: fever or chills Ears, nose, mouth, and throat Denies: throat pain or nasal congestion Respiratory Denies: cough Gastrointestinal Denies: nausea or vomiting Musculoskeletal Reports: neck pain and extremity pain; Denies: back pain Neurological Denies: headache, numbness in extremities or weakness in extremities Hematologic/Lymphatic Denies: easy bruising or easy bleeding PFSH PFSH Social History Little interest or pleasure in doing things: not at all Feeling down, depressed, or hopeless: not at all Exam Narrative Exam Narrative: Gen.: Awake, alert, in no distress Head: Normocephalic, atraumatic ENT: Moist mucous membranes Respiratory: No respiratory distress, lungs clear bilaterally Cardio: Regular rate and rhythm Gastrointestinal: Abdomen is soft, nondistended and nontender to palpation, pelvis is stable and hips are nontender Extremities: Moves extremities equally, abrasion noted to the left anterior knee and proximal tibia Psych: Normal mood and affect Neuro: No focal neuro deficit Skin: Warm, dry, intact Constitutional Vital Signs, click to edit/add: Last Vital Signs Temp 98.4 F 05/03/24 19:14 Pulse 82 05/03/24 21:31 Resp 17 05/03/24 21:31 BP 158/82 H 05/03/24 22:00 Pulse Ox 96 05/03/24 22:00 O2 Del Method Room Air 05/03/24 19:14 Course Vital Signs Vital signs: Vital Signs Temperature 98.4 F 05/03/24 19:14 Pulse Rate 89 05/03/24 19:14 Respiratory Rate 18 05/03/24 19:14 Blood Pressure 165/77 H 05/03/24 19:14 Pulse Oximetry 98 05/03/24 19:14 Oxygen Delivery Method Room Air 05/03/24 19:14 Temperature 98.4 F 05/03/24 19:14 Pulse Rate 82 05/03/24 21:31 Respiratory Rate 17 05/03/24 21:31 Blood Pressure 158/82 H 05/03/24 22:00 Pulse Oximetry 96 05/03/24 22:00 Oxygen Delivery Method Room Air 05/03/24 19:14 MDM - Fall MDM Narrative Medical decision making narrative: 2105: Patient was medicated with fentanyl, Norflex and Zofran. She was kept in a c-collar until CTs of the head and C-spine resulted. X-rays are pending and the patient will need to ambulate with a walker to make sure she is stable for discharge. Case is turned over to attending physician at this time. SHARED APC VISIT, PHYSICIAN ATTESTATION: [id number] I performed a substantive part of the MDM during the patient?s E/M visit. I personally evaluated and examined the patient. I personally made or approved the documented management plan and acknowledge its risk of complications. Medical Records Attestation: I reviewed the patient's medical records. Lab Data Attestation: I reviewed the patient's lab results. Discharge Plan Discharge Chief Complaint: Fall Clinical Impression: Fall, Cervical sprain Patient Disposition: Home, Self-Care Time of Disposition Decision: 22:22 Condition: Good Mode of Transportation: EMS Prescriptions / Home Meds: No Action aspirin 325 mg tablet 325 mg PO DAILY brimonidine 0.2 % drops 1 drp OPHTHALMIC (EYE) BID carvedilol 12.5 mg tablet 12.5 mg PO Q12H cholecalciferol (vitamin D3) [Vitamin D3] 10 mcg (400 unit) tablet 400 unit PO DAILY divalproex 500 mg tablet,delayed release (DR/EC) 500 mg PO DAILY docusate sodium 100 mg capsule 100 mg PO BID PRN (Reason: constipation) duloxetine 60 mg capsule,delayed release(DR/EC) 60 mg PO DAILY ferrous sulfate 325 mg (65 mg iron) tablet 325 mg PO DAILY fluocinonide 0.05 % ointment 1 applic TOPICAL DAILY PRN (Reason: rash) sucralfate [Carafate] 100 mg/mL suspension 1 g PO TID insulin glargine [Lantus Solostar U-100 Insulin] 100 unit/mL (3 mL) insulin pen 15 unit subcut DAILY levothyroxine 100 mcg tablet 100 mcg PO DAILY loperamide 2 mg capsule 2 mg PO Q6H PRN (Reason: loose stool) guaifenesin [Mucinex] 600 mg tablet extended release 12hr 600 mg PO BID PRN (Reason: congestion) multivitamin Tablet 1 tab PO DAILY omeprazole 40 mg capsule,delayed release(DR/EC) 40 mg PO DAILY potassium chloride 20 mEq tablet,ER particles/crystals 20 meq PO DAILY guaifenesin 100 mg/5 mL liquid 200 mg PO Q6H PRN (Reason: congestion) tramadol 50 mg tablet 50 mg PO Q12H cholecalciferol (vitamin D3) 25 mcg (1,000 unit) tablet 25 mcg PO DAILY Print Language: Mongolian Instructions: Fall Prevention for Older Adults (ED) Referrals: MAHIN BERNAL [Primary Care Provider] - 1 week Documented by User: Scott Schmidt MD 05/03/24 22:25 HPI HPI - Fall General Chief Complaint: Fall Stated Complaint: FALL Time Seen by Provider: 05/03/24 19:14 Related Data Home Medications ?Medication ?Instructions ?Recorded ?Confirmed aspirin 325 mg tablet 325 mg PO DAILY 12/19/23 03/10/24 brimonidine 0.2 % eye drops 1 drp ophthalmic (eye) BID 12/19/23 03/10/24 carvedilol 12.5 mg tablet 12.5 mg PO Q12H 12/19/23 03/10/24 cholecalciferol (vitamin D3) 10 400 unit PO DAILY 12/19/23 03/10/24 mcg (400 unit) tablet (Vitamin D3) divalproex 500 mg tablet,delayed 500 mg PO DAILY 12/19/23 03/10/24 release docusate sodium 100 mg capsule 100 mg PO BID PRN constipation 12/19/23 03/10/24 duloxetine 60 mg capsule,delayed 60 mg PO DAILY 12/19/23 03/10/24 release ferrous sulfate 325 mg (65 mg 325 mg PO DAILY 12/19/23 03/10/24 iron) tablet fluocinonide 0.05 % topical 1 applic topical DAILY PRN rash 12/19/23 12/20/23 ointment guaifenesin 100 mg/5 mL oral liquid 200 mg PO Q6H PRN congestion 12/19/23 12/19/23 guaifenesin 600 mg tablet, 600 mg PO BID PRN congestion 12/19/23 03/10/24 extended release 12 hr (Mucinex) insulin glargine 100 unit/mL (3 15 unit subcut DAILY 12/19/23 03/10/24 mL) subcutaneous pen (Lantus Solostar U-100 Insulin) levothyroxine 100 mcg tablet 100 mcg PO DAILY 12/19/23 03/10/24 loperamide 2 mg capsule 2 mg PO Q6H PRN loose stool 12/19/23 03/10/24 multivitamin 1 tab PO DAILY 12/19/23 03/10/24 omeprazole 40 mg capsule,delayed 40 mg PO DAILY 12/19/23 03/10/24 release potassium chloride 20 mEq 20 meq PO DAILY 12/19/23 03/10/24 tablet,extended release(part/cryst) sucralfate 100 mg/mL oral 1 g PO TID 12/19/23 03/10/24 suspension (Carafate) tramadol 50 mg tablet 50 mg PO Q12H 12/19/23 03/10/24 cholecalciferol (vitamin D3) 25 25 mcg PO DAILY 03/10/24 03/10/24 mcg (1,000 unit) tablet Allergies Allergy/AdvReac Type Severity Reaction Status Date / Time cephalexin Allergy Unknown Verified 12/19/23 20:32 moxifloxacin (From Avelox) Allergy Unknown Verified 12/19/23 20:32 polyethylene glycol 3350 Allergy Unknown Verified 12/19/23 20:32 (From Miralax) Opioid HPI Opioid Management Most Recent Pain and Opioid Data: Last Pain Scale 2 05/03/24 21:32 05/03/24 Last ED Pain Assessment 05/03/24 21:32 Last MAR Pain Assessment 05/03/24 19:42 PFSH PFSH Social History Little interest or pleasure in doing things: not at all Feeling down, depressed, or hopeless: not at all Exam Constitutional Vital Signs, click to edit/add: Last Vital Signs Temp 98.4 F 05/03/24 19:14 Pulse 82 05/03/24 21:31 Resp 17 05/03/24 21:31 BP 158/82 H 05/03/24 22:00 Pulse Ox 96 05/03/24 22:00 O2 Del Method Room Air 05/03/24 19:14 Course Vital Signs Vital signs: Vital Signs Temperature 98.4 F 05/03/24 19:14 Pulse Rate 89 05/03/24 19:14 Respiratory Rate 18 05/03/24 19:14 Blood Pressure 165/77 H 05/03/24 19:14 Pulse Oximetry 98 05/03/24 19:14 Oxygen Delivery Method Room Air 05/03/24 19:14 Temperature 98.4 F 05/03/24 19:14 Pulse Rate 82 05/03/24 21:31 Respiratory Rate 17 05/03/24 21:31 Blood Pressure 158/82 H 05/03/24 22:00 Pulse Oximetry 96 05/03/24 22:00 Oxygen Delivery Method Room Air 05/03/24 19:14 MDM - Fall MDM Narrative Medical decision making narrative: 2105: Patient was medicated with fentanyl, Norflex and Zofran. She was kept in a c-collar until CTs of the head and C-spine resulted. X-rays are pending and the patient will need to ambulate with a walker to make sure she is stable for discharge. Case is turned over to attending physician at this time. SHARED APC VISIT, PHYSICIAN ATTESTATION: [id number] I performed a substantive part of the MDM during the patient?s E/M visit. I personally evaluated and examined the patient. I personally made or approved the documented management plan and acknowledge its risk of complications. JK 10:25 PM All radiographs are negative including CT of the head and neck as well as x-rays of the right humerus, pelvis, and left lower leg. She is able to be released back to [facility]. She was able to ambulate here with a walker which is her normal state. Treatment diagnosis and follow-up were discussed with the patient Differential Diagnosis Differential diagnosis: Likely dislocation of shoulder region and other (Cervical spine fracture, cervical sprain, intracranial hemorrhage, contusions, pelvic fracture, leg fracture, arm fracture) Imaging Data CT C-spine, CT brain, x-rays of humerus, pelvis, left lower leg: Radiologist's impression: CT brain: Mild generalized brain volume loss consistent with age, no acute intracranial hemorrhage CT C-spine: No acute cervical spine fracture or dislocation Humerus: Intact right humerus with no acute fracture or dislocation Pelvis: Intact pelvis with no acute fracture or dislocation Tibia: Intact left tibia and fibula with no acute fracture or dislocation Discharge Plan Discharge Chief Complaint: Fall Clinical Impression: Fall, Cervical sprain Patient Disposition: Home, Self-Care Time of Disposition Decision: 22:22 Condition: Good Mode of Transportation: EMS Prescriptions / Home Meds: No Action aspirin 325 mg tablet 325 mg PO DAILY brimonidine 0.2 % drops 1 drp OPHTHALMIC (EYE) BID carvedilol 12.5 mg tablet 12.5 mg PO Q12H cholecalciferol (vitamin D3) [Vitamin D3] 10 mcg (400 unit) tablet 400 unit PO DAILY divalproex 500 mg tablet,delayed release (DR/EC) 500 mg PO DAILY docusate sodium 100 mg capsule 100 mg PO BID PRN (Reason: constipation) duloxetine 60 mg capsule,delayed release(DR/EC) 60 mg PO DAILY ferrous sulfate 325 mg (65 mg iron) tablet 325 mg PO DAILY fluocinonide 0.05 % ointment 1 applic TOPICAL DAILY PRN (Reason: rash) sucralfate [Carafate] 100 mg/mL suspension 1 g PO TID insulin glargine [Lantus Solostar U-100 Insulin] 100 unit/mL (3 mL) insulin pen 15 unit subcut DAILY levothyroxine 100 mcg tablet 100 mcg PO DAILY loperamide 2 mg capsule 2 mg PO Q6H PRN (Reason: loose stool) guaifenesin [Mucinex] 600 mg tablet extended release 12hr 600 mg PO BID PRN (Reason: congestion) multivitamin Tablet 1 tab PO DAILY omeprazole 40 mg capsule,delayed release(DR/EC) 40 mg PO DAILY potassium chloride 20 mEq tablet,ER particles/crystals 20 meq PO DAILY guaifenesin 100 mg/5 mL liquid 200 mg PO Q6H PRN (Reason: congestion) tramadol 50 mg tablet 50 mg PO Q12H cholecalciferol (vitamin D3) 25 mcg (1,000 unit) tablet 25 mcg PO DAILY Print Language: Mongolian Instructions: Fall Prevention for Older Adults (ED) Referrals: MAHIN BERNAL [Primary Care Provider] - 1 week
--- NOTE | 2024-05-03 19:27 | PC.NURSE ---
this patient complains of posterior neck pain onset 3 days ago after a fall while at home. this patient said she was walking with her walker and her foot got caught on something which cause her to fall. this patient did not seek medical care after this fall 3 days ago this patient is alert and oriented x 4
[2024-05-03] MEDS: ORPHENADRINE 60 MG/ 2 ML VIAL IV (19:42)
[2024-05-03] MEDS: FENTANYL CITRATE/PF 100 MCG/2 ML VIAL 50 MCG IV (19:42)
[2024-05-03] MEDS: ONDANSETRON PF 4 MG/2 ML VIAL IV (19:42)
--- OUTSIDE RECORDS SUMMARY | 2024-05-03 19:43 | XMS_ITS | CCD ---
Author Organization [facility] Inform ion Partnership [facility] Care Team Providers Care Cylinder Filler Name Role Phone Neri Santa Unavailable Pili Gilliam Unavailable Reji Miramontes Unavailable Unavailable Unavailable Unavailable Luis Miguel Kaur Unavailable Neri Santa Unavailable Luis Miguel Kaur Unavailable Tisha Arriaga Unavailable Adilson Hernandez Unavailable Kartik Mejia Unavailable Pili Gilliam Admitting Unavailable Pili Gilliam Attending Unavailable Pili Gilliam Admitting Unavailable Pili Gilliam Attending Unavailable Pili Gilliam Admitting Unavailable Pili Gilliam Attending Unavailable Pili Gilliam Admitting Unavailable Pili Gilliam Attending Unavailable Martha Yan Admitting Unavailable Martha Yan Attending Unavailable Ariel Franklin Attending Unavailable Ariel Franklin Admitting Unavailable Mark Anthony Mcdonald Admitting Unavaila Mark Anthony Carvajal Attending Unavaila Mark Anthony Carvajal Admitting Unavaila Mark Anthony Carvajal Attending Unavaila ble Neri Santa Primary Care Provider [phone] Pili Gilliam Unavailable Reji Miramontes Unavailable House, Neri P Primary Care Provider Pili Gilliam Unavailable Reji Miramontes Don Unavailable HOUSE, NERI [...] Neri P Primary Care Provider Reji Miramontes Unavailable House DONeri Primary Care Provider Gilliam DPPili Unavailable Fe SOMMER, Reji PALACIOS Don Unavailable [phone] MARIELA JR., JEF Attending Unavailable HOUSE, NERI [...] Unavailable HOUSE, NERI P Primary Care Unavailable TIA BAUGH Attending Unavailabl e PHYSICIAN PHYSICIAN, PCP PCP UNKNOWN~[phone] Primary Care Unavailable BANNING, KIKE Consulting Unavailable PRECIOUS, MADELINESE Attending Unavailable PRECIOUS, MADELINESE Admitting Unavailable BANNING, KIKE Consulting Unavailable BANNING, KIKE Consulting Unavailable BAUERLE, CLARISA Consulting Unavailable BAUERLE, CLARISA Consulting Unavailable BAUERLE, CLARISA Consulting Unavailable VAISHALI ERAZO Referring Unavailable PHYSICIAN PHYSICIAN, PCP PCP UNKNOWN~[phone] Primary Care Unavailable House DO, Neri P Primary Care Provider David VIVEROS, Adilson Pinto Unavailable [phone] Kartik Mejia MD Unavailable Tisha Arriaga MD Unavailable Luis Miguel Kaur MD Unavailable [phone] Lucas OD, Chris A Unavailable Kartik Mejia MD Unavailable ARINA, NERI P Primary Care Unavailable TORI HART Attending Unavailable JEF SIERRA JR. Admitting Unavailable HOUSE, NERI P Primary Care Unavailable TORI HART Referring Unavailable HOUSE, NERI P Primary Care Unavailable NBA FORREST Admitting Unavaila MAC Burkett Consulting Unavailable LEILA LINTON Attending Unavailable House DO, Sr Neri P Primary Care Provider House DO, Sr Neri P Primary Care Provider JERRY POZO Attending Unavailable JOHNY BECKMAN Referring Unavailable HOUSE, NERI Primary Care Unavailable JERRY POZO Admitting Unavailable KARLOS Perez Attending Provider HOUSE, NERI P Primary Care [...] Primary Care Unavailable QI, KRYSTYNA Referring Unavailable KOSTYK, DESTINY K Attending Unavailable HOUSE, NERI P Primary Care Unavailable QI, KRYSTYNA Referring Unavailable ANAM BULLARD Attending Unavailable HOUSE, NERI P Primary Care Unavailable MATURUSANIA Attending Unavailable QI, KRYSTYNA Referring Unavailable HOUSE, [...] R Referring Unavailable JOVON BOWERS Attending Unavailable MATURU, SANIA Attending Unavailable QI, KRYSTYNA Referring Unavailable HOUSE, NERI P Primary Care Unavailable HOUSE, NERI P Primary Care Unavailable SELF, SELF Referring Unavailable OLGA LIDIA MATOS Attending Unavailable HOUSE, NERI P Primary Care Unavailable QI, KRYSTYNA Referring Unavailable KOSTYK, DESTINY K Attending Unavailable HOUSE, NERI P Primary Care Unavailable SHARON HERNANDEZ Attending Unavailabl e SELF, SELF Referring Unavailable DAVIDORF, SHARON H Attending Unavailabl e SELF, SELF Referring Unavailable HOUSE, NERI P Primary Care Unavailable HOUSE, NERI P Primary Care Unavailable DAVIDSHARON ZURITA H Attending Unavailabl e SELF, SELF Referring Unavailable [...] Ganga Savage MD Primary Care Provider [phone] Rufus Perez Attending Unavailable Rufus Perez Admitting Unavailable Ganga Savage MD Primary Care Provider GANGA SAVAGE Primary Care Unavailable ALISIA, ALISIA VAISHALI Referring Unavailable ALISIA, ALISIA VAISHALI Referring Unavailable GANGA SAVAGE Primary Care Unavailable ALISIA, ALISIA VAISHALI Referring Unavailable JANETTE, GANGA Santiago Primary Care Unavailable House Neri VIVEROS Primary Care Provider FELTER, NADIA A Attending Unavailable Jemima, DATA TRANSCRIBER Jami L Attending Unavailable Jemima, DATA TRANSCRIBER Jami L Attending Unavailable Jemima, DATA TRANSCRIBER Jami L Attending Unavailable LEILA LINTON Admitting Unavailable LEILA LINTON Attending Unavailable Garfield Rodriguez Attending Unavailable Allergies Allergy Classification Reported Allergen(s) Allergy Type Date of Onset Reaction(s) Facility Cephalosporins (antibiotic) (3 sources) Cephalexin Drug Allergy 04-07-19 18 Itching [facility] Opioid Agonists (3 sources) tapentadol Drug Allergy 04-07-19 18 Unknown [facility] Quinolones (antibiotic) (3 sources) moxifloxacin Drug Allergy 04-07-19 18 Itching, Swelling, Rash, Other (See Comments) [facility] (20 sources) cephalexin; Translations: [CEPHALEXIN] Propensity to adverse reactions to drug 12-02-19 12 Itching, Rash [facility] (20 sources) moxifloxacin; Translations: [MOXIFLOXACIN] Propensity to adverse reactions to drug 12-02-19 12 Itching, Swelling, Rash, Other (See Comments) [facility] (20 sources) tapentadol; Translations: [TAPENTADOL] Propensity to adverse reactions to drug 04-07-19 18 Unknown [facility] (15 sources) polyethylene glycol 3350 / potassium chloride / sodium bicarbonate / sodium chloride / sodium sulfate Drug Allergy 10-29-19 17 [facility] Work Phone: (20 sources) tapentadol Drug Allergy 10-31-19 16 Other (See Comments) [facility] Work Phone: (3 sources) Cephalexin; Translations: [Keflex] Drug Allergy 06-23-19 10 [facility] Repository (3 sources) moxifloxacin; Translations: [Avelox] Drug Allergy 06-23-19 10 [facility] Repository (3 sources) tapentadol; Translations: [Nucynta] Drug Allergy 06-30-19 13 [facility] Repository (1 source) Bacitracin / Neomycin / Polymyxin B Drug Allergy 06-23-19 10 [facility] Repository (1 source) Calcium oxide Drug Allergy 06-23-19 10 [facility] Repository (1 source) POLYETHYLENE GLYCOL 3350 Drug Allergy 08-21-19 22 [facility] Repository (1 source) Sulfamethoxazole / Trimethoprim Drug Allergy 06-23-19 10 [facility] Repository (1 source) fentaNYL; Translations: [fentaNYL] Drug Allergy [facility] Repository (1 source) POLYETHYLENE GLYCOL 3350 / Potassium Chloride / Sodium Bicarbonate / Sodium Chloride / sodium sulfate; Translations: [GoLYTELY] Drug Allergy [facility] Repository (1 source) Shellfish; Translations: [shellfish] Propensity to adverse reactions (disorder) [facility] Repository (1 source) Shrimp product; Translations: [Shrimp] Propensity to adverse reactions (disorder) [facility] Repository Medications Current Medications Medication Drug Class(es) [...] 5 mg, Oral, DAILY PRN, Starting on Nohemy 06/28/21 at 2107, Until Discontinued, Constipation First [...] Start: 07-15-2021 take 2 tablets by mo [facility] once daily calcium carbonate-vitamin D3 (CALTRATE) 600-400 [...] Start: 05-18-2020 take 1 tablet by [place] th once daily ezetimibe (Zetia) 10 MG tablet [...] per P&T policy Freestyle Juanpablo 14 Day [place] (5 sources) Start: 01-05-2018 End: 01-05-2018 Freestyle [...] UNIT/ML Solution Pen-injector injection 3 samples given--Lot [id number], exp 10/2021 3 Prefilled Pen/Syringe 0 06/23/2020 [...] (5 sources) Antiarrhythmic, Amide Local Anesthetic Start: 2 apply 1 dose transdermal route every twelve [...] 07/28 at 0203, Until 07/28/21 at 0206 AbnerHelen carrington A: cabinet override Abner, Helen A: cabinet override Start: 07-28-2021 2 mg, IntraVEN [...] at 10 mL/hr, CO NTINUOUS, Starting on 07/25/21 at 2145 Start: 07-18-2021 End: 07-18-2021 1,000 mL (16.5 mL/kg), Intra VENous, at 1,935.5 mL/hr, Administer over 31 Minutes, ONCE, On Fri07/18/21 at 1300, For 1 dose Start: 07-14-2021 End: 07-24-2021 take 1 dose intravenously twice daily 5-40 mL, IntraVENous, EVERY 12 HOURS SCHEDULED (2 times per day), First dose on 07/14/21 at 2100, Until Discontinued For Line Patency: [...] needed 5-40 mL, IntraVENous, PRN, Starting on Fri06/28/21 [...] mg oral tablet (15 sources) Start: End: take 1 tablet by mouth twice daily Alpha-Lipoic Acid 300 MG TABS Take 300 mg by mouth 2 times daily 0 12/24/2017 06/28/2021 Discontinued (LIST CLEANUP) levothyroxine sodium 0.1 mg oral tablet (20 sources) l-Thyroxine Start: take 1 tablet by mouth once daily [...] 10/16/2017 Active take 1 tablet by [place] once daily levothyroxine (SYNTHROID) 112 MCG tablet [...] Start: 03-05-2018 take 1 capsule by mo [facility] once daily VITAMIN B COMPLEX-C CAPS Take [...] PRN, Starting on 07/14/21 at 1705, Until Fri07/24/21 at 1357, Pain Moderate (4-6), Pain Severe [...] Start: 04-07-2017 take 1 tablet by [place] th once daily aspirin 325 MG EC tablet [...] mL/hr, Administer over 60 Minutes, ONCE, On 08/04/21 at 0800, For 1 dose Start: 07-29-2021 End: 07-29-2021 2,000 mg, IntraVENous, at 10 0 mL/hr, Administer over 60 Minutes, ONCE, On 07/29/21 at 0630, For 1 dose carvedilol 25 [...] on 07/14/21 at 1700, Last dose on 07/23/21 at 0900 Start: 06-28-2021 End: 06-28-2021 10 mg, IntraVENous, EVERY 6 HOURS, First dose on Nohemy 06/28/21 at 1615, For 4 days Please give steroid 15 mins before antibiotics dextromethorphan hydrobromide 2 mg/ml / guaiFENesin 20 mg/ml oral suspension (1 source) Uncompetitive X-jovgxr-Y-aspartate Receptor Antagonist, Sigma-1 Agonist Start: 07-14-2021 End: 08-07-2021 take 5 mL by mouth every four hours as needed for cough Dosing in mg is based on dextromethorphan component. 5 mL, Oral, EVERY 4 HOURS PRN, Starting on 07/14/21 at 1639, Until Fri08/07/21 at 0810, Cough diphenhydrAMINE hydrochloride 25 mg oral tablet (4 sources) Histamine-1 Receptor Antagonist Start: 07-16-2021 End: 07-24-2021 take 25 mg by mouth every six hours as needed 25 mg, Oral, EVERY 6 HOURS PRN, Starting on 07/16/21 at 1302, Until Fri07/24/21 at 1357, Itching, [...] mcg/hr (0.5-4 mL/hr), IntraVENous, CONTINUOUS, Starting on Fri07/24/21 at 1130, Until Nohemy 08/02/21 at 1138 [...] IntraVENous, EVERY 8 HOURS, First dose on Fri07/16/21 at 1330, Until Discontinued Antimicrobial Indications: Bone [...] Until Fri07/24/21 at 2259 Jess Ventura: cabinet overrJess Zhang: cabinet override Freestyle Juanpablo Ary Essie (5 sources) Start: 04-21-2017 End: 01-07-2018 Continuous Blood Gluc Renewable Energy Technician (FREESTYLE JUANPABLO READER) Device Indications: Type 2 diabetes mellitus with diabetic polyneuropathy, without long-term current use of insulin Apply 1 Device topically As directed. Use to download subcutaneous glucose monitor data at least four times daily 1 Device 3 04/21/2017 01/07/2018 Discontinued Start: 04-21-2017 Continuous Blo od Gluc Renewable Energy Technician (FREESTYLE JUANPABLO READER) Device Indications: Type 2 diabetes mellitus with diabetic polyneuropathy, without long-term current use of insulin Apply 1 Device topically As directed. Use to download subcutaneous glucose monitor data at least four times daily 1 Device 3 04/21/2017 Active Freestyle Juanpablo Sensor Syste m Misc (5 sources) Start: 04-21-2017 End: 01-07-2018 Continuous Blood Gluc Sensor (FREESTYLE JUANPABLO SENSOR SYSTEM) Misc Indications: Type 2 diabetes mellitus with diabetic polyneuropathy, without long-term current use of insulin Inject 1 Each under the skin every [address] one sensor subcutaneous every 10 day 3 Each 6 04/21/2017 01/07/2018 Discontinued Start: 04-21-2017 Continuous Blo od Gluc Sensor (FREESTYLE JUANPABLO SENSOR SYSTEM) Misc Indications: Type 2 diabetes mellitus with diabetic [...] Oral, 3 TIMES DAILY, First dose on Nohemy 07/19/21 at 0900, Until Discontinued glucagon (rdna) 1 [...] hour 1 mg, IntraMUSCular, PRN, Starting on Fri06/28/21 at 1617, Until Discontinued, Low blood sugar, [...] raVENous, PRN, Low blood sugar, Starting on Fri06/28/21 at 1617 Start infusion following administration of [...] 2140, Until Fri07/06/21 at 2141 Ashwini Cleary: vita override Ashwini Cleary: cabinet override immune globulin [...] EV RAFY 6 HOURS, First dose on Fri08/04/21 at 0915, Until Discontinued Medium Dose Corrective [...] IMES DAILY WITH MEALS, First dose on Fri07/28/21 at 1700, Until Discontinued Corrective Low Dose [...] Units, SubCUTAneous, NIG HTLY, First dose on 07/22/21 at 2100, Until Discontinued If continuous tube [...] TIMES DAILY WITH MEALS, First dose on 07/22/21 at 0845, Until Discontinued Medium Dose Corrective Algorithm Glucose: Dose: If <139 No Insulin 140-199 2 Units 200-249 4 Units 250-299 6 Units 300-349 8 Units 350-400 10 Units Above 400 12 Units Start: 06-28-2021 0-6 Units, SubCUTAneous, NIG HTLY, First dose on [facility] 06/28/21 at 2100, Until Discontinued If continuous [...] KwikPen) 100 UNIT/ML Solution Pen-injector Sample given [id number], 3 mL 0 09/13/2020 09/28/2020 Discontinued (Therapy [...] IntraVENous, EVERY 6 HOURS PRN, Starting on Fri06/29/21 at 2219, Until 06/30/21 at 0918, Pain [...] 1907 AbnerHelen carrington A: cabinet override AbnerHelen carrington: cabinet override Start: 06-28-2021 10 mg, IntraVE Nous, EVERY 4 HOURS PRN, Starting on Nohemy 06/28/21 at 1615, Until Discontinued, High Blood Pressure, for sbp >160 Hold for HR <60, or SBP <120 lactobacillus rhamnosus gg 8 [id number] unt oral capsule (6 sources) Start: 07-11-2021 [...] Starting on 08/04/21 at 0758, Until Discontinued, Diarrhea After each loose stool. Start: 07-03-2021 take 2 mg by mouth f our times daily as needed 2 mg, Oral, 4 TIMES DAILY PRN, Starting on Fri07/03/21 at 0329, Until Discontinued, Diarrhea After each loose stool. magnesium hydroxide 80 mg/ml oral suspension (2 sources) Start: 07-29-2021 End: 08-04-2021 30 mL, Per NG tube, DAILY [place] N, Starting on Fri08/04/21 at 0800, Until [...] mL/hr, Administer over 2 Hours, ONCE, On [place] 07/01/21 at 1130, For 1 dose 2 grams total Start: 06-28-2021 End: 06-28-2021 2,000 mg, IntraVENous, at 25 mL/hr, Administer over 2 Hours, ONCE, On [facility] 06/28/21 at 1445, For 1 dose Recommended [...] IntraVENous, EVERY 6 HOURS, First dose on [facility] 08/04/21 at 1600, Until Discontinued take 5 [...] EVERY 6 H OURS, First dose on [facility] 06/30/21 at 1015, Until Discontinued Hold for HR < 70, S bp< 130 End: 05-12-2022 take 1 tablet by mouth twice daily metoprolol (LOPRESSOR) 100 MG tablet Take 100 mg by mouth 2 times daily 0 06/28/2021 Discontinued (LIST CLEANUP) End: 12-20-2019 metoprolol tartrate (LOPRESS OR) 50 MG tablet 2 (two) times a day. 0 12/20/2019 Discontinued (Error) take 2 tablets by mo uth twice daily metoprolol 25 MG tab regular release Take 50 mg by mouth 2 times daily. Active 2 ml midazolam 1 mg/ml injection (3 sources) Benzodiazepine Start: 07-29-2021 End: 07-29-2021 2 mg, IntraVENous, ONCE, 1 dose, On 07/29/21 at 0600 Start: 07-24-2021 End: 07-24-2021 2 mg, IntraVENous, ONCE, 1 d ose, On Fri07/24/21 at 1215 Start: 07-24-2021 End: 07-24-2021 1 [...] dilute if GI adverse effects occur. Start: 05-31-2022 40 mEq, Oral, EVERY 2 HOURS, 3 [...] 1100, at 100 mL/hr Start: 07-06-2021 End: 05-20-2022 10 mEq, IntraVENous, EVERY H OUR, 4 [...] DAILY, First dose (after last modification) on Nohemy 07/26/21 at 2100, Until Discontinued IV Push over [...] Fri07/24/21 at 2100 Start: 07-24-2021 End: 07-26-2021 malvin pinto g i n t r a v e n o u s l y e v e r y h o u r 8 mg/hr (10 mL/hr), IntraVENous, CONTINU OUS, Starting on Fri07/24/21 at 1515, Until Nohemy 07/26/21 at 0945 Start: 07-24-2021 End: 07-24-2021 80 [...] mL/hr, Administer over 15 Minutes, ONCE, On Fri07/17/21 at 2315, For 1 dose Start: 07-15-2021 End: 07-16-2021 1,000 mg, IntraVENous, EVERY 6 HOURS, 112 doses, First dose on Fri07/15/21 at 1745, Last dose on Fri08/12/21 at 1500 Antimicrobial Indications: Bloodstream Infection, Bone [...] OUS, Starting on 06/30/21 at 1315, Until Fri07/02/21 at 1411 Start: 06-30-2021 End: 06-30-2021 80 mg, IntraVENous, at 100 m L/hr, Administer over 30 Minutes, ONCE, On [facility] 06/30/21 at 1315, For 1 dose Start: 06-30-2021 End: 06-30-2021 40 mg, IntraVENous, DAILY, F irst dose on Fri06/30/21 at 0915 Reconstitute with 10 mL 0.9 [...] Fri06/28/21 at 2107, Until Discontinued, Nausea, Vomiting [Order [...] F irst dose (after last modification) on [facility] 06/28/21 at 1615, Until Discontinued Antimicrobial Indications: Central Nervous System Infection Administer as slow IV Push over 5 mins Reconstitute 2 g vials with 19.2 mL of designated diluent to produce a 100mg/mL solution Start: 06-28-2021 End: 06-28-2021 500 mg, IntraVENous, at 1,00 0 mL/hr, Administer over 60 Minutes, ONCE, On Fri06/28/21 at 1445, For 1 dose Use 0.22 micron in-line filter. (1 source) Start: 06-28-2021 16 g (4 tablet ), Oral, PRN, Starting on Fri06/28/21 at 1616, Until Discontinued, Low blood sugar [...] 175 mg, IntraVENous, ONCE, 1 dose, On 07/15/21 at 1830 Does this patient qualify for [...] Coronary atherosclerosis; Translations: [Atherosclerotic heart disease of [place] coronary artery without angina pectoris] Onset: 3 [...] aftercare (20 sources) Patient encounter status; Translations: [russet repairer (current) use of non-steroidal anti-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 (NSAID)] Onset: 8 01-22-2018 Episodic Other aftercare (1 source) Long-term current use of antibiotic; Translations: [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] Episodic Other 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 infection and poliomyelitis (9 sources) Abscess in [...] pansinusitis; Translations: [Acute pansinusitis, unspecified] 08-28-2021 Episodic Pneumonia (except that caused by tuberculosis or sexually transmitted disease) (1 source) Infective pneumonia; Translations: [Pneumonia, unspecified organism] Episodic Residual codes; unclassified (6 sources) Tube [...] unspecified] Onset: 09-16-2021 09-16-2021 Episodic Cardiac dysrhythmias (7 sources) Palpitations; Translations: [Palpitations] Onset: 06-21-2013 01-22-2018 [...] in right knee] Onset: 01-22-2018 01-22-2018 Episodic Residual codes; unclassified (7 sources) Postmenopausal [...] Test Name Value Interpretation Reference Range Facility ED Note-Physicianon 04-18-19 ED Note-Physician ED Note-Physician Basic Information Time Seen: Aston BERMUDEZJeff 04/16/2024 10:24 Chief Complaint Fall last night onto butt. States slipped on wet floor and fell. Did not strike head, no LOC. On aspirin. c/o back pain and neck pain, states always has back pain. History of Present Illness 59-year-old female comes to the ED for evaluation of lumbar back pain. The patient states she got up to go to the bathroom last night slipped on some water and fell backwards landing directly on her buttock. She complains of pain across the lumbar region. She does have a history of polyneuropathy with chronic back pain. She did not strike her head, there is no loss of consciousness. She has been able to ambulate since the fall but with difficulty and pain. Review of Systems A 10 point review of systems is negative except as noted above. Medical and Surgical History: Reviewed and noted Social history: Lives at home Tobacco: Denies Physical Exam Vitals & Measurements T: 36.5 ???C(Oral) HR: 96(Monitored) RR: 14 BP: 137/65 SpO2: 96% HT: 165.1 cm WT: 74.4 kg BMI: 27.29 Nurses notes and vital signs reviewed and patient is not hypoxic. General: The patient appears well, resting comfortably. Skin: Warm, dry. Head: Atraumatic. Neck: No JVD. Eye: Normal conjunctiva. Ears, Nose, Mouth, and Throat: Moist mucous membranes. Cardiovascular: Strong distal pulses. Chest wall: Respiratory: Respirations are nonlabored. Back: Generalized lumbar tenderness. No focal point tenderness or instability. Musculoskeletal: Normal ROM with no gross deformity. good sensation of bilateral lower extremities Gastrointestinal: Soft and nontender Urological: Neurological: Awake and alert. No focal deficits. Follows commands. Psychiatric: Cooperative. Medical Decision Making Patient presents mechanical fall and low back pain. Generally tender on examination. There is no evidence of acute neurovascular compromise. She had good sensation and strength bilateral lower extremities. CT scan was obtained. Degenerative changes, chronic findings, no acute abnormality. She was medicated here for pain with improvement. She is discharged home pain medications and is given PCP follow-up. Patient was encouraged to return to the ED if symptoms worsen or change. Assessment/Plan Back pain (M54.9: Dorsalgia, unspecified) Ordered: acetaminophen-oxycodo ne, 1 tab(s), Oral, q6hr as needed for pain for 3 day(s), 15 tab(s), Refill(s) 0, [facility]/pharmacy #[id number], 165.1, cm, 04/16/24 10:29:00 EST, Height/Length Dosing, 74.4, kg, 04/16/24 10:29:00 EST, Weight Dosing Fall (W19.XXXA: Unspecified fall, initial encounter) Orders: morphine, 8 mg = 2 mL, Injection, IntraMuscular, Once, Stop date 04/16/24 11:04:00 EST, STAT, Start date 04/16/24 11:04:00 EST, 04/16/24 11:04:00 EST ondansetron, 4 mg = 1 tab(s), Tab-Dis, Oral, Once, Stop date 04/16/24 11:04:00 EST, STAT, Start date 04/16/24 11:04:00 EST, 04/16/24 11:04:[address] Spine Lumbar w/o Contrast Medications Administered Given morphine 4 mg/mL Inj, 8 mg, IntraMuscular Zofran ODT 4 mg Tab-Dis, 4 mg, Oral Disposition Plan Patient Discharge Condition Disposition: Discharged home Condition: Improved and stable Counseled: Patient and/or family were counseled to workup, results, treatment plan and follow-up recommendations Discharge Prescription List Prescriptions Percocet 5 mg-325 mg oral tablet, 1 tab(s), Oral, q6hr, PRN Follow-up With When Contact Information Jami Onofre In 3 days 04/19/2024 EST Additional Instructions: Patient Education Acute Back Pain, Adult Attestation I performed a substantive part of the MDM during the patient???s E/M visit. I personally made or approved the documented management plan and acknowledge its risk of complications. (Independent Interpretation) My (EKG/X-Ray/US/CT) interpretation as above. (Discussion) Management/test interpretation discussed with APC. This report was transcribed using voice recognition software. Every effort was made to ensure accuracy, however, inadvertently computerized shipwright supervisor mistakes may be present. Appropriate healthcare PPE was used in evaluating this patient. Problem List/Past Medical History Ongoing Benign hypertension with chronic kidney disease, stage III BMI 23.0-23.9, adult BMI 24.0-24.9, adult CIDP (chronic inflammatory demyelinating polyneuropathy) Diabetic neuropathy Dizziness Fluid level behind tympanic membrane of both ears Glaucoma Hyperlipidemia Hypertension Hypothyroidism Long-term insulin use Major depressive disorder, recurrent episode, moderate MGUS (monoclonal gammopathy of unknown significance) Nonsmoker TRIP (obstructive sleep apnea) Stage 3a chronic kidney disease (CKD) Type 2 diabetes mellitus with hyperlipidemia Type 2 diabetes mellitus with stage 3a chronic kidney disease Wheezing Historical Anxiety Asthma Chronic respiratory failure Depression Depression Encepha (more content not included)... Normal [facility] Comment on above: Result Comment: Elec tronically Signed By: Jeff Clancy PA-C\.br\Date and Time Signed: 04/16/24 13:24 EST\.br\Electronically Co-Signed By: Garfield Rodriguez DO\.br\Date and Time Co-Signed: 04/17/24 07:[address] Spine Lumbar w/o Contrast on 04-16-2024 CT Spine Lumbar w/o Contrast Exam Date/Time: 04/16/2024 11:38 EST Reason for Exam: Trauma Report IMPRESSION: MARKED DIFFUSE DEGENERATIVE CHANGE LOWER LUMBAR SPINE WITH MILD PROGRESSION AT L4-L5 LEVEL. REMOTE LAMINECTOMY L4. REMOTE COMPRESSION FRACTURE L4. OTHER FINDINGS DISCUSSED. CT LUMBAR SPINE WITHOUT INTRAVENOUS CONTRAST MEDIUM. HISTORY: FALL LAST NIGHT. FAT-CONTAINING. TRAUMA TECHNICAL FACTORS: CT lumbar spine obtained and formatted as 2.5 mm contiguous axial images from skull base to the level of. Sagittal and coronal reconstructions were obtained during postprocessing. No contrast medium was utilized. COMPARISON: None FINDINGS: Lumbar vertebral bodies are normal in alignment. Remote anterior wedge compression L4. No acute fracture identified. Healed nondisplaced transverse fracture anterior bridging osteophyte base L3. Intact bridging anterior osteophytes L3-L4 and L4-L5. Diffuse disc space narrowing with near fusion, L4-L5, which has progressed since prior study. Remote laminectomy L4. No central stenosis. No neural foraminal stenosis. No dislocations. No bone lesions. Limited imaging of the abdomen and pelvis without anomaly. All CT scans at this facility use dose modulation, iterative reconstruction, and/or weight based dosing when appropriate to reduce radiation dose to as low as reasonably achievable. Report Ordering Provider: Jeff Clancy FINAL REPORT Dictated: 04/16/2024 12:15 pm SignTerence interiano MD Signed (Electronic Signature): 04/16/2024 12:15 pm Signed by: Terence Arcos MD Transcribed by: SINDY Technologist: HIWOT [facility] ED Clinical Summaryon 2024 ED Clinical Summary ED Clinical Summary [place] [id number] ED Clinical Summary Person Information Name: MEG GEORGES Jesusita/[facility] Age: 59 Years : 1965 Sex: Female Language: Citizen Of [place] PCP: Jami Payne Marital Status: Visit Id: Visit Reason: Trauma - minor; Back pain; Fall; FALL Speciality: Acuity: 3 Enc Type: Emergency Med Service: Emergency Arrival: 04/16/2024 10:20:31 Discharge: 04/16/2024 14:32:40 LOS: 000 04:12 Checkin: 04/16/2024 10:20:31 Checkout: 04/16/2024 14:32:40 Dispo Type: Home (Routine DC) EVENTS: Event Name Event Status Request Date/Time Start Date/Time Complete Date/Time Arrive Complete 04/16/2024 10:20:31 04/16/2024 10:20:31 04/16/2024 10:20:31 Document Home Meds Request 04/16/2024 10:20:31 Triage Complete 04/16/2024 10:20:31 04/16/2024 10:29:02 04/16/2024 10:29:02 Bed Assign Complete 04/16/2024 10:20:31 04/16/2024 10:20:31 04/16/2024 10:20:31 Dr Exam Complete 04/16/2024 10:20:31 04/16/2024 10:24:50 04/16/2024 10:24:50 RN Exam Complete 04/16/2024 10:20:31 04/16/2024 10:30:48 04/16/2024 10:30:48 Registration Complete 04/16/2024 10:24:50 04/16/2024 11:02:51 04/16/2024 11:02:51 Dr Exam Complete 04/16/2024 10:28:53 04/16/2024 10:28:53 04/16/2024 10:28:53 Trauma III Request 04/16/2024 10:35:43 Reg Complete Request 04/16/2024 11:02:51 Reg Bed Request Complete 04/16/2024 11:02:51 04/16/2024 11:02:51 04/16/2024 11:02:51 CT Complete 04/16/2024 11:04:44 04/16/2024 11:12:48 04/16/2024 11:38:30 Meds Admin Complete 04/16/2024 11:04:44 04/16/2024 11:22:38 Discharge Complete 04/16/2024 12:58:48 04/16/2024 14:34:45 04/16/2024 14:34:45 Transfer Complete 04/16/2024 14:34:45 04/16/2024 14:34:45 04/16/2024 14:34:45 ADDRESS: [address] [place] [address] [place] [phone] PHYS DOC NOTES: MEDICAL INFORMATION: Prescriptions Given: New Medications [id number], [address], [place] [id number], [phone] acetaminophen-oxycodo ne (Percocet 5 mg-325 mg oral tablet) 1 Tablets By Mouth every 6 hours as needed as needed for pain for 3 Days. Refills: 0. Medications to Continue with No Changes Other Medications aspirin (aspirin 325 mg oral capsule) 1 Capsules By Mouth every day. brimonidine ophthalmic (brimonidine Opth 0.2% Aixa) 1 Drops Left eye 2 times a day. calcium carbonate (calcium carbonate 1000 mg oral tablet, chewable) 1 Tablets Chewed every day. carvedilol (carvedilol 12.5 mg Tab) 1 Tablets By Mouth 2 times a day. cholecalciferol 2,000 Milligram By Mouth every day. cholecalciferol (Vitamin D3 400 intl units oral capsule) 1 Capsules By Mouth every day. divalproex sodium (Depakote DR 250 mg Tab-EC) 1 Tablets By Mouth 2 times a day. divalproex sodium (divalproex sodium 250 mg Oral EC Tab) 60 tab(s), 0 Refill(s). docusate (Colace 100 mg Cap) 1 Capsules By Mouth 2 times a day as needed for constipation. duloxetine (duloxetine 60 mg oral delayed release capsule) 1 Capsules By Mouth every day. ferrous sulfate (ferrous sulfate 325 mg Tab) 1 Tablets By Mouth every day. insulin glargine 15 Units Subcutaneous once a day (at bedtime). levothyroxine (levothyroxine 100 mcg (0.1 mg) Tab) 1 Tablets By Mouth every day. lidocaine topical (lidocaine 4% patch) 1 Patches Topical every day. magnesium hydroxide (Milk of Magnesia) 400 Milligram By Mouth once a day (at bedtime). melatonin 5 Milligram By Mouth once a day (at bedtime). metoclopramide (metoclopramide 5 mg Tab) 1 Tablets By Mouth three times a day (with meals) as needed Nausea/Vomiting. Refills: 0. multivitamin with minerals (Multivitamins and Minerals) 1 tab By Mouth every day. ofloxacin otic (ofloxacin Otic 0.3% Aixa) 5 Drops Otic 2 times a day. Refills: 0. omeprazole (omeprazole 40 mg Cap-DR) 1 Capsules By Mouth every day. Refills: 3. pantoprazole 40 Milligram By Mouth every day. polyethylene glycol 3350 (MiraLax) 17 Gram By Mouth every day. potassium chloride 40 Milliequivalent By Mouth at bedtime. quetiapine (Seroquel) 75 Milligram By Mouth at bedtime. sucralfate (Carafate 1 g/10 mL Susp-Oral) 10 Milliliter By Mouth four times a day (before meals and at bedtime). sucralfate (sucralfate 1 g Tab) 120 tab(s), 0 Refill(s). tramadol (traMADOL 50 mg Tab) 1 Tablets By Mouth every 12 hours as needed for pain. Refills: 0. PATIENT EDUCATION INFORMATION: Instructions: Acute Back Pain, Adult Follow up: With: Address: When: Jami Onofre In 3 days 04/19/2024 DIAGNOSIS: Back pain; Fall [facility] ED Patient Summaryon 025 ED Patient Summary ED Patient Summary [address] [address] Patient Discharge Instructions Person Information Name: MEG GEORGES Age: 59 Years Arrival Date: 04/16/2024 10:20:31 Discharge Diagnosis: Back pain; Fall Primary Care Physician: Jami Payne Provider Information Primary Provider: Garfield Rodriguez DO [employer] Dispatcher:Jeff Clancy PA-C The exam and treatment you received in the Emergency Department were for an urgent problem and are not intended as complete care. It is important that you follow up with a doctor, nurse practitioner, or physician???s night assistant for ongoing care. If your symptoms become worse or you do not improve as expected and you are unable to reach your usual health care provider, you should return to the Emergency Department. We are available 24 hours a day. MEG GEORGES has been given the following list of patient education materials, prescriptions and follow-up instructions: Follow-up Instructions: With: Address: When: Jami Onofre In 3 days 04/19/2024 In the event that this physician does not participate in your insurance network, please consult with your insurance company to find a nearby participating provider. Patient Education Materials: Acute Back Pain, Adult A MESSAGE TO ALL PATIENTS REGARDING OPIOIDS PRESCRIPTION OPIOIDS: WHAT YOU NEED TO KNOW Prescription opioids can be used to help relieve [id number] pain and are often prescribed following a surgery or injury, or for certain health conditions. These medications can be an important part of the treatment but also come with serious risks. It is important to work with your healthcare provider to make sure you are getting the safest, most effective care. WHAT ARE THE RISKS AND SIDE EFFECTS OF OPIOID USE? Prescription opioids carry serious risks of addiction and overdose, especially with prolonged use. An opioid overdose, often marked by slowed breathing, can cause sudden . The use of prescription opioids can have a number of side effects as well, even when taken as directed: ??? Tolerance???meaning you might need to take more of the medication for the same pain relief ??? Physical dependence???meaning you have symptoms of withdrawal when a medication is stopped ??? Increased sensitivity to pain ??? Constipation ??? Nausea, vomiting, and dry mouth ??? Sleepiness and dizziness ??? Confusion ??? Depression ??? Low levels of testosterone that can result in lower sex drive, energy, and strength ??? Itching and sweating RISKS ARE GREATER WITH: ??? History of drug misuse, substance use disorder, or overdose ??? Mental health conditions (such as depression or anxiety) ??? Sleep apnea ??? Older age (65 years and older) ??? Avoid alcohol while taking prescription opioids. Also, unless specifically advised by your health care provider, medications to avoid include: ??? Benzodiazepines (such as Xanax or Valium) ??? Muscle relaxants (such as Soma or Flexeril) ??? Hypnotics (such as Ambien or Lunesta) ??? Other prescription opioids KNOW YOUR OPTIONS Talk to your health care provider about ways to manage your pain that don???t involve prescription opioids. Some of these options may actually work better and have fewer risks and side effects. Options may include: ??? Pain relievers such as acetaminophen, ibuprofen, and naproxen ??? Some medication that are also used for depression or seizures ??? Physical therapy and exercise ??? Cognitive behavioral therapy, a psychological, goal-directed approach, in which patients learn how to modify physical, behavioral, and emotional triggers of pain and stress. IF YOU ARE PRESCRIBED OPIOIDS FOR PAIN: ??? Never take opioids in greater amounts or more often than prescribed. ??? Follow up with your primary health care provider. o Work together to create a plan on how to manage your pain. o Talk about ways to help manage your pain that don???t involve prescription opioids. o Talk about any and all concerns and side effects. ??? Help prevent misuse and abuse o Never sell or share prescription opioids. o Never use another person???s prescription opioids. ??? Store prescription opioids in a secure place and out of reach of others (this may include visitors, children, friends, and family). ??? Safely dispose of unused prescription opioids: Find your community drug take-back program or your pharmacy mail-back program, or flush them down the toilet, following guidance from the Food and Drug Administration (www.fda.gov/Drugs/Re sourcesForYou). ??? Visit www.cdc.gov/drugoverd ose to learn about the risks of opioids abuse and overdose. ??? If you believe you may be struggling with addiction, tell your health respite care provider and ask for guidance or call [facility]S [employer] Helpline at 7-079-022-[employer]. [employer] (more content not included)... [facility] Pre-Arrival Noteon Pre-Arrival Note Pre-Arrival Note Pre-Arrival Summary Name: , wilfred Current Date: 04/16/2024 10:22:29 EST Gender: Female Date of : Age: 60 Pre-Arrival Type: EMS ETA: 04/16/2024 10:38:00 EST Primary Care Physician: Presenting Problem: fall Pre-Arrival User: Shirin Miller RN Referring Source: Location: [place] Completion Date/Time: 04/16/2024 10:09:00 [facility] Emergency Department Pre-Hospital Report Form Vital Signs: Pre-Hospital Report: Treatment in Route: Response to Treatment: Misc. Issues: [facility] Family Medicine Office/Clini c Noteon 11-25-2023 Family Medicine Office/Clinic Note Family Medicine Office/Clinic Note Chief Complaint 1m f/u HPI Staff 1m follow up Patient is here for follow up on hyperlipidemia: Do you have side effects from the medication? no Refill needed?: _ Yearly Lipid labs: 11/19/23 Patient is here for follow up on Diabetes. How often are you checking your blood sugars? _? resides at [facility] Do you have any of the following symptoms? Vision problems? no? Lightheadedness? no? Paresthesias, Ulcerations or sores? no? Patient is here for follow up on Thyroid Disease. Do you have any of the following symptoms? Change in energy level? no Weight change? no Heat/cold intolerance? no Hair/skin/nail changes? no Change in bowels? no Last TSH: Jimenez santizo to have labs completed prior to today's visit. History of Present Illness pt presents today for 1 month follow up Review of Systems PHQ Score Initial Depression Screen Score: 0 SCORE Physical Exam Vitals & Measurements HR: 107(Peripheral) RR: 16 BP: 138/82 SpO2: 97% HT: 65 in HT: 165 cm WT: 66.7 kg WT: 146.74 lb BMI: 24.5 General: alert, no acute distress ENMT: oral mucosa moist, no pharyngeal erythema or exudate Cardiovascular: regular rate and rhythm, normal peripheral perfusion Respiratory: Lungs CTA, respirations non labored Extremities: no deformity, no trauma Neurological: oriented x 4, LOC appropriate for age, CN II-XII intact, motor strength equal & normal bilaterally, speech normal Assessment/Plan 1. Difficulty swallowing (R13.10: Dysphagia, unspecified) pt has difficulty swallowing especially when drinking fluids. food seems to be ok. ordered modified barium swallow study RTC 3 months 2. Type 2 diabetes mellitus with hyperlipidemia (E11.69: Type 2 diabetes mellitus with other specified complication) reviewed recent labs. HGBA1C is 6.5. will repeat in 3 months 3. Benign hypertension with chronic kidney disease, stage III (I12.9: Hypertensive chronic kidney disease with stage 1 through stage 4 chronic kidney disease, or unspecified chronic kidney disease) BP at goal today 4. Major depressive disorder, recurrent episode, moderate (F33.1: Major depressive disorder, recurrent, moderate) pt is very anxious and tearful during visit today. 5. Fluid level behind tympanic membrane of both ears (H65.93: Unspecified nonsuppurative otitis media, bilateral) kenalog 40mg given in office 6. Wheezing (R06.2: Wheezing) kenalog and zpak 7. BMI 24.0-24.9, adult (Z68.24: Body mass index [BMI] 24.0-24.9, adult) BMI education given 8. Nonsmoker (Z78.9: Other specified health status) continue not smoking Follow-up No qualifying data available Problem List/Past Medical History Ongoing Benign hypertension with chronic kidney disease, stage III BMI 23.0-23.9, adult BMI 24.0-24.9, adult CIDP (chronic inflammatory demyelinating polyneuropathy) Diabetic neuropathy Dizziness Fluid level behind tympanic membrane of both ears Glaucoma Hyperlipidemia Hypertension Hypothyroidism Long-term insulin use Major depressive disorder, recurrent episode, moderate MGUS (monoclonal gammopathy of unknown significance) Nonsmoker TRIP (obstructive sleep apnea) Stage 3a chronic kidney disease (CKD) Type 2 diabetes mellitus with hyperlipidemia Type 2 diabetes mellitus with stage 3a chronic kidney disease Wheezing Historical Anxiety Asthma Chronic respiratory failure Depression Depression Encephalopathy Essential hypertension GERD - Gastro-esophageal reflux disease Hyperlipidemia Hypothyroidism Obstructive sleep apnea Polyneuropathy Spinal stenosis Status post insertion of percutaneous endoscopic gastrostomy (PEG) tube Type 2 diabetes mellitus Procedure/Surgical History EGD (esophagogastroduoden oscopic) electrohydraulic lithotripsy of bezoar in stomach (03/07/2023), Amputated toe (09/04/2015), LEFT GREAT TOE ULCER DEBRIDEMENT (04/19/2013), 1994 sinus surgery, cholecystectomy 2010, Eye, HEEL ON LEFT FOOT, left achilles tendon release, lumbar L4-5 repair of nerve sheath 1996, lumbar L4-5 surgery 1995, Rotator cuff repair, skin graft left foot, Tonsillectomy. Medications aspirin 325 mg oral capsule, 325 mg= 1 cap(s), Oral, Daily azithromycin 250 mg Tab, 1 packet(s), Oral, As Directed brimonidine Opth 0.2% Aixa, 1 drop(s), Eye-Left, BID calcium carbonate 1000 mg oral tablet, chewable, 1000 mg= 1 tab(s), Chewed, Daily Carafate 1 g/10 mL Susp-Oral, 1 gm= 10 mL, Oral, QIDACHS carvedilol 12.5 mg Tab, 12.5 mg= 1 tab(s), Oral, BID cholecalciferol, 2000 mg, Oral, Daily Colace 100 mg Cap, 100 mg= 1 cap(s), Oral, BID, PRN Depakote DR 250 mg Tab-EC, 250 mg= 1 tab(s), Oral, BID divalproex sodium 250 mg Oral EC Tab duloxetine 60 mg oral delayed release capsule, 60 mg= 1 cap(s), Oral, Daily ferrous sulfate 325 mg Tab, 325 mg= 1 tab(s), Oral, Daily insulin glargine, 15 unit(s), SubCutaneous, Once a day (at bedtime) levothyroxine 100 mcg (0.1 mg) Tab, 100 mcg (more content not included)... [facility] Comment on above: Result Comment: Elec tronically Signed By: Jami Payne\.br\Date and Time Signed: 11/25/23 12:17 EDT Pre-Visit Planningon Pre-Visit Planning Pre-Visit Planning From: Mai Wilkins To: Jami Payne; Sent: 11/20/2023 11:04:45 EDT Subject: Pre-Visit Planning Due Date/Time: 11/20/2023 11:04:00 EDT Caller Name: MEG GEORGES; Caller Number: Cynthia , Sallie Dorian Farrell. During a pre-visit planning chart review, I noted the following documentation in the medical record: Current Problem List: Depression, unspecified. Current Medication List: duloxetine and quetiapine. 10/24/2023 Office Visit Note: Depression (F32.A: Depression, unspecified) taking duloxetine for this. pt is not the greatest historian but I am able to follow her conversation. answers question appropriately. Based on your medical judgment, can you please clarify which of the following conditions are present? I can update the Chronic Problem List with your response if you would like. Major Depressive Disorder, Single Episode ? Major depressive disorder, single episode, mild ? Major depressive disorder, single episode, moderate ? Major depressive disorder, single episode, severe without mention of psychotic behavior ? Major depressive disorder, single episode, in partial remission ? Major depressive disorder, single episode in full remission Major Depressive Disorder, Recurrent ? Major depressive disorder, recurrent, mild ? Major depressive disorder, recurrent, moderate ? Major depressive disorder, recurrent, severe without mention of psychotic behavior ? Major depressive disorder, recurrent, in partial remission ? Major depressive disorder, recurrent, in full remission -Other (Please Specify): In responding to this request, please exercise your independent professional judgement. The fact that a question is asked does not imply that any particular answer is desired or expected. If you have any questions, please feel free to contact me at extension [phone]. Thank you! Mai Claudette, BOOKING PRIZER Clinical Nicu Rn [address] [address] Extension: [phone] [email or web address] From: Jami Payne To: Mai Wilkins; Sent: 11/21/2023 08:41:15 EDT Subject: RE: Pre-Visit Planning Caller Name: MEG GEORGES; Caller Number: Cynthia , Sallie major depressive disorder, recurrent moderate [facility] Family Medicine Office/Clini c Noteon 10-24-2023 Family Medicine Office/Clinic Note Family Medicine Office/Clinic Note HPI Staff Meg is a 58 year old female presenting with D/C'd from [facility] on 10/21/23 Is currently at [facility] Establish Care: History: Any previous diagnosis: Diabetes, CKD Stage 3 History of seeing any specialist: When was your last doctors visit: long time ago Last provider: Dr Eaton Any recent labs: not that she knows of Health Maintenance UTD: Colonoscopy: years ago Mammogram years ago Pelvic/Pap: years ago Acute: Current issues/complaints: she said she has been getting headaches History of Present Illness pt presents today to establish care. recently moved to [facility] from [facility] Review of Systems PHQ Score Initial Depression Screen Score: 0 SCORE Physical Exam Vitals & Measurements T: 36.5 ?C(Temporal Artery) HR: 76(Peripheral) RR: 18 BP: 100/68 SpO2: 96% HT: 65 in HT: 165.0 cm WT: 64.6 kg WT: 142.12 lb BMI: 23.73 General: alert, no acute distress ENMT: oral mucosa moist, no pharyngeal erythema or exudate Cardiovascular: regular rate and rhythm, normal peripheral perfusion Respiratory: Lungs CTA, respirations non labored Extremities: no deformity, no trauma Neurological: oriented x 4, LOC appropriate for age, CN II-XII intact, motor strength equal & normal bilaterally, speech normal Assessment/Plan 1. Hyperlipidemia (E78.5: Hyperlipidemia, unspecified) lipid panel ordered 2. Long-term insulin use (Z79.4: detention (current) use of insulin) HGBA1C ordered 3. Type 2 diabetes mellitus with stage 3a chronic kidney disease (E11.22: Type 2 diabetes mellitus with diabetic chronic kidney disease) HGBA1C ordered 4. Stage 3a chronic kidney disease (CKD) (N18.31: Chronic kidney disease, stage 3a) labs ordered 5. Hypothyroidism (E03.9: Hypothyroidism, unspecified) TSH ordered 6. Depression (F32.A: Depression, unspecified) taking duloxetine for this. pt is not the greatest historian but I am able to follow her conversation. answers question appropriately. 7. Glaucoma (H40.9: Unspecified glaucoma) eye drops prescirbed 8. 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: Chronic inflammatory demyelinating polyneuritis) pt was being treated for this with infusions in [place]. she was warned about the risks of infection, but continued having treatments. she ended up with severe infection and ended up intubated and in the hospital for a long time. pt gets tearful talking about it. 9. Dizziness (R42: Dizziness and giddiness) pt c/o dizziness and weakness. labs ordered 10. BMI 23.0-23.9, adult (Z68.23: Body mass index [BMI] 23.0-23.9, adult) BMI education given Orders: tramadol, 50 mg = 1 tab(s), Oral, q12hr, PRN for pain, # 30 tab(s), Refills(s) 0, Pharmacy: [facility], 165, cm, 10/24/23 13:15:00 EDT, Height/Length Dosing, 64.6, kg, 10/24/23 13:15:00 EDT, Weight Dosing Follow-up No qualifying data available Problem List/Past Medical History Ongoing Benign hypertension with chronic kidney disease, stage III BMI 23.0-23.9, adult CIDP (chronic inflammatory demyelinating polyneuropathy) Depression Diabetic neuropathy Dizziness Glaucoma Hyperlipidemia Hypertension Hypothyroidism Long-term insulin use MGUS (monoclonal gammopathy of unknown significance) TIRP (obstructive sleep apnea) Stage 3a chronic kidney disease (CKD) Type 2 diabetes mellitus with hyperlipidemia Type 2 diabetes mellitus with stage 3a chronic kidney disease Wheezing Historical Anxiety Asthma Chronic respiratory failure Depression Encephalopathy Essential hypertension GERD - Gastro-esophageal reflux disease Hyperlipidemia Hypothyroidism Obstructive sleep apnea Polyneuropathy Spinal stenosis Status post insertion of percutaneous endoscopic gastrostomy (PEG) tube Type 2 diabetes mellitus Procedure/Surgical History EGD (esophagogastroduoden oscopic) electrohydraulic lithotripsy of bezoar in stomach (03/07/2023), Amputated toe (09/04/2015), LEFT GREAT TOE ULCER DEBRIDEMENT (04/19/2013), 1994 sinus surgery, cholecystectomy 2010, Eye, HEEL ON LEFT FOOT, left achilles tendon release, lumbar L4-5 repair of nerve sheath 1996, lumbar L4-5 surgery 1995, Rotator cuff repair, skin graft left foot, Tonsillectomy. Medications aspirin 325 mg oral capsule, 325 mg= 1 cap(s), Oral, Daily brimonidine Opth 0.2% Aixa, 1 drop(s), Eye-Left, BID calcium carbonate 1000 mg oral tablet, chewable, 1000 mg= 1 tab(s), Chewed, Daily Carafate 1 g/10 mL Susp-Oral, 1 gm= 10 mL, Oral, QIDACHS carvedilol 12.5 mg Tab, 12.5 mg= 1 tab(s), Oral, BID cholecalciferol, 2000 mg, Oral, Daily Colace 100 mg Cap, 100 mg= 1 cap(s), Oral, BID, PRN Depakote DR 250 mg Tab-EC, 250 mg= 1 tab(s), Oral, BID divalproex sodium 250 mg Oral EC Tab duloxetine 60 mg oral delayed release capsule, 60 mg= 1 cap(s), Oral, Daily ferrous sulfate 325 mg Tab, 325 mg= 1 tab(s), Oral, Daily insulin glargine, 15 unit(s), SubCu (more content not included)... Normal [facility] Comment on above: Result Comment: Elec tronically Signed By: Jami Payne\.br\Date and Time Signed: 10/24/23 14:29 EDT Pre-Visit Planningon 024 Pre-Visit Planning Pre-Visit Planning From: Mai Wilkins To: Jami Payne; Sent: 10/23/2023 09:26:05 EDT Subject: Pre-Visit Planning Due Date/Time: 10/23/2023 09:26:00 EDT Caller Name: MEG GEORGES; Caller Number: Sallie Dorian Farrell. During a pre-visit planning chart review, I noted the following medication documented in the medical record: brimonidine ophthalmic solution. Based on your medical judgement, can you please indicate what conditions indicate the necessity of the medication/treatment? I can update the Chronic Problem List with your response if you would like. -Additional comments: ____ -Will determine during Office Visit In responding to this request, please exercise your independent professional judgement. The fact that a question is asked does not imply that any particular answer is desired or expected. If you have any questions, please feel free to contact me at extension [phone]. Thank you! Mai Wilkins LPN Clinical [facility] [place] [address] Extension: [id number] [email or web address] From: Jami Payne To: Mai Wilkins; Sent: 10/24/2023 14:29:06 EDT Subject: RE: Pre-Visit Planning Caller Name: MEG GEORGES; Caller Number: Sallie Pretty sure I addressed all of her diagnosis you had questions on. Thank you Normal [facility] Pre-Visit Planningon 024 Pre-Visit Planning Pre-Visit Planning From: Mai Wilkins To: Jami Payne; Sent: 10/23/2023 09:46:28 EDT Subject: Pre-Visit Planning Due Date/Time: 10/23/2023 09:46:00 EDT Caller Name: MEG GEORGES; Caller Number: Sallie Dorian Farrell. During a pre-visit planning chart review, I noted the following documentation in the medical record: ? Glomerular filtration rate (GFR): =47 on 04/06/2023, =47 on 01/09/2023, =43 on 11/23/2022, and =52 on 11/13/2022. Based on your medical judgment, can you please clarify which, if any, of the following conditions are present? I can update the Chronic Problem List with your response if you would like. -Chronic Kidney Disease Stage 3a (GFR 45-59) -Chronic Kidney Disease Stage 3b (GFR 30-44) -Other (please specify): In responding to this request, please exercise your independent professional judgment. The fact that a question is asked does not imply that any particular answer is desired or expected. If you have any questions, please feel free to contact me at extension [phone]. Thank you! Mai Wilkins LPN Clinical [facility] [place] [address] Extension: [id number] [email or web address] From: Jami Payne To: Mai Wilkins; Sent: 10/23/2023 12:43:08 EDT Subject: RE: Pre-Visit Planning Caller Name: MEG GEORGES; Caller Number: M chronic kidney disease stage 3a Normal [facility] Pre-Visit Planning Pre-Visit Planning From: Mai Wilkins To: Jami Payne; Sent: 10/23/2023 09:33:52 EDT Subject: Pre-Visit Planning Due Date/Time: 10/23/2023 09:33:00 EDT Caller Name: MEG GEORGES; Caller Number: M Dorian Farrell. During a pre-visit planning chart review, I noted the following medication documented in the medical record: divalproex. Based on your medical judgement, can you please indicate what conditions indicate the necessity of the medication/treatment? I can update the Chronic Problem List with your response if you would like. -Additional comments: ___ -Will determine during Office Visit In responding to this request, please exercise your independent professional judgement. The fact that a question is asked does not imply that any particular answer is desired or expected. If you have any questions, please feel free to contact me at extension [phone]. Thank you! Mai Wilkins LPN Clinical [facility] [place] [address] Extension: [id number] [email or web address] From: Jami Payne To: Claudette, Mai Sallie; Sent: 10/23/2023 10:45:18 EDT Subject: RE: Pre-Visit Planning Caller Name: MEG GEORGES; Caller Number: Sallie will determine during visit. thank you Normal [facility] Pre-Visit Planning Pre-Visit Planning From: Rachel Wilkinsissa Sallie To: Jami Payne; Sent: 10/23/2023 09:37:18 EDT Subject: Pre-Visit Planning Due Date/Time: 10/23/2023 09:37:00 EDT Caller Name: MEG GEORGES; Caller Number: Sallie Dorian Farrell. During a pre-visit planning chart review, I noted the following medication documented in the medical record: duloxetine. Based on your medical judgement, can you please indicate what conditions indicate the necessity of the medication/treatment? I can update the Chronic Problem List with your response if you would like. -Additional comments: ___ -Will determine during Office Visit In responding to this request, please exercise your independent professional judgement. The fact that a question is asked does not imply that any particular answer is desired or expected. If you have any questions, please feel free to contact me at extension [phone]. Thank you! Mai Wilkins LPN Clinical [facility] [place] [address] Extension: [phone] [email or web address] Normal [facility] Physician Orderon 05-27-2023 Physician Order [id number] Normal [facility] Respiratory Panel by PCRon 0 05-27-2023 Adenovirus DNA CAL+non-probe Ql (Nph) Not detected Normal [facility] Comment on above: Order Comment: per charanjit Donaldson had talked to [place] earlier in the day and they want the swab placed into the media to run the specimen [id number] 05/27/2023 17:26:25 EDT Result Comment: Test ing was performed using nucleic acid amplification including Influenza A, Influenza A H1, Influenza A H3, Influenza B, RSV A, RSV B, Adenovirus, Human Metapneumovirus, Parainfluenza 1,2,3, and 4, Rhinovirus, Bordetella parapertussis/bronchiseptica, Bordetella holmesii, and Bordetella pertussis. Performed By: #### 1 [id number] ####[place] [id number] B. parapertussis DNA CAL+probe Ql (Upper resp) Not detected Normal Not Detected [facility] Comment on above: Order Comment: per malvin Hintonncharanjit had talked to [place] earlier in the day and they want the swab placed into the media to run the specimen [facility] 05/27/2023 17:26:25 EDT Performed By: #### 1 [id number] ####[facility] [address] [place] [address] B. pertussis DNA CAL+probe Ql (Upper resp) Not detected Normal Not Detected [facility] Comment on above: Order Comment: per charanjit Donaldson had talked to [place] earlier in the day and they want the swab placed into the media to run the specimen [id number] 05/27/2023 17:26:25 EDT Performed By: #### 1 [id number] ####[facility] [address] [place] [address] FLUAV H1 RNA CAL+non-probe Ql (Nph) Not detected Normal [facility] Comment on above: Order Comment: per charanjit Donaldson had talked to [place] earlier in the day and they want the swab placed into the media to run the specimen [id number] 05/27/2023 17:26:25 EDT Performed By: #### 1 [id number] ####[facility] [address] [place] [address] FLUAV H3 RNA CAL+non-probe Ql (Nph) Not detected Normal [facility] Comment on above: Order Comment: per malvin Hintonncharanjit had talked to [place] earlier in the day and they want the swab placed into the media to run the specimen [id number] 05/27/2023 17:26:25 EDT Performed By: #### 1 [id number] ####[place] [address] [place] [address] FLUAV RNA CAL+non-probe Ql (Nph) Not detected Normal [facility] Comment on above: Order Comment: per malvin Hintonncharanjit had talked to [place] earlier in the day and they want the swab placed into the media to run the specimen [id number] 05/27/2023 17:26:25 EDT Performed By: #### 1 [id number] ####[facility] [address] [place] [address] FLUBV RNA CAL+non-probe Ql (Nph) Not detected Normal [facility] Comment on above: Order Comment: per malvin Hintonncharanjit had talked to [place] earlier in the day and they want the swab placed into the media to run the specimen [id number] 05/27/2023 17:26:25 EDT Performed By: #### 1 [id number] ####[facility] [address] [place] [address] Human Metapneumovirus Not detected Normal [facility] Comment on above: Order Comment: per malvin Hintonncharanjit had talked to [place] earlier in the day and they want the swab placed into the media to run the specimen [id number] 05/27/2023 17:26:25 EDT Result Comment: This test result should be correlated with clinical presentations and medical history by a healthcare provider to determine its clinical significance. Performed By: #### 1 [id number] ####[facility] [address] [place] [address] Parainfluenza virus 1 RNA CAL+non-probe Ql (Nph) Not detected Normal [facility] Comment on above: Order Comment: per charanjit Donaldson had talked to [place] earlier in the day and they want the swab placed into the media to run the specimen [id number] 05/27/2023 17:26:25 EDT Performed By: #### 1 [id number] ####[facility] [address] [place] [address], [place] [address] Parainfluenza virus 2 RNA CAL+non-probe Ql (Nph) Not detected Normal [facility] Comment on above: Order Comment: per malvin Hintonncharanjit had talked to [place] earlier in the day and they want the swab placed into the media to run the specimen [id number] 05/27/2023 17:26:25 EDT Performed By: #### 1 [id number] ####[facility] [address] [place] [address] Parainfluenza virus 3 RNA CAL+non-probe Ql (Nph) Not detected Normal [facility] Comment on above: Order Comment: per charanjit Donaldson had talked to [place] earlier in the day and they want the swab placed into the media to run the specimen [id number] 05/27/2023 17:26:25 EDT Performed By: #### 1 [id number] ####[facility] [address] [place] [address] Parainfluenza virus 4 RNA CAL+non-probe Ql (Nph) Not detected Normal [facility] Comment on above: Order Comment: per charanjit Donaldson had talked to [place] earlier in the day and they want the swab placed into the media to run the specimen [id number] 05/27/2023 17:26:25 EDT Performed By: #### 1 [id number] ####[facility] [address] [place] [address] Resp Panel Intrl QC Pass Normal [facility] Comment on above: Order Comment: per charanjit Donaldson had talked to [place] earlier in the day and they want the swab placed into the media to run the specimen [id number] 05/27/2023 17:26:25 EDT Performed By: #### 1 [id number] ####[facility] [address] [place], [place] [address] Rhinovirus+Enterovirus RNA CAL+non-probe Ql (Nph) Not detected Normal [facility] Comment on above: Order Comment: per charanjit Donaldson had talked to [place] earlier in the day and they want the swab placed into the media to run the specimen [facility] 05/27/2023 17:26:25 EDT Performed By: #### 1 [id number] ####[facility] [address] [place] [address] RSV RNA CAL+non-probe Ql (Nph) Detected Abnormal [facility] Comment on above: Order Comment: per charanjit Donaldson had talked to [place] earlier in the day and they want the swab placed into the media to run the specimen [id number] 05/27/2023 17:26:25 EDT Performed By: #### 1 [id number] ####[facility] [address] [place] [address] [facility] [place]/ AUTO DIFFon 03-20 Basophils (Bld) [#/Vol] 0.0 10*3/uL [facility] Basophils/100 WBC (Bld) 0.2 % 0.0 - 2.0 % [facility] EOS ABSOLUTE 0.9 High [facility] Eosinophils/100 WBC (Bld) 7.7 % 0.0 - 8.0 % [facility] Erythrocyte distribution width (RBC) [Ratio] 14.1 % 10.9 - 14.2 % [facility] Hematocrit (Bld) [Volume fraction] 32.0 % Low 34.0 - 46.0 % [facility] Hemoglobin (Bld) [Mass/Vol] 10.3 g/dL Low [facility] Interpretation and review of laboratory results Abnormal [facility] LYMPH ABSOLUTE 2.5 [facility] Lymphocytes/100 WBC (Bld) 22.1 % 14.0 - 50.0 % [facility] MCH (RBC) [Entitic mass] 30.0 pg 27.0 - 34.0 pg [facility] MCHC (RBC) [Mass/Vol] 31.9 g/dL [facility] MCV (RBC) [Entitic vol] 94.1 fL 80.0 - 100.0 fL [facility] MONO ABSOLUTE 1.0 [facility] Monocytes/100 WBC (Bld) 9.2 % 4.0 - 14.0 % [facility] NEUTRO ABSOLUTE 6.8 [facility] NEUTRO AUTO 60.8 % 36.0 - 75.0 % [facility] Platelet mean volume (Bld) [Entitic vol] 7.5 fL 6.4 - 10.8 fL [facility] Platelets (Bld) [#/Vol] 270.0 10*3/uL [facility] RBC (Bld) [#/Vol] 3.4 10*6/uL Low [facility] WBC (Bld) [#/Vol] 11.3 10*3/uL High [facility] Original Ordering Provider: MD RUFUS SMILEY [facility] CT CERVICAL SPINE WO CONTRAS Ton 11-23-2022 [...] to 8 to 9 mm compatible with ehrb-ii-qcdmztnf central stenosis. No neural foraminal stenosis. C3-C4: [...] Chance Hugo DO 11/23/22 Final result Normal [facility] XR CERVICAL SPINE (4-5 VIEWS )on 04-03-2022 [...] Clark Veliz MD 04/03/22 Final result Normal [facility] Prior dens fracture with posterior fixation at C1-2 without complication. Multilevel degenerative facet hypertrophy. [facility] EXAMINATION: 4 XRAY VIEWS OF THE [...] The lung apices are without acute process. [facility] Clark Veliz MD - 04/03/2022 EXAMINATION: [...] C1-2 without complication. Multilevel degenerative facet hypertrophy. [employer] Phone: XR CERVICAL SPINE (4-5 VIEWS )Ordered By: Clark Veliz on 04-03-2022 [employer] Phone: XR CERVICAL SPINE (4-5 VIEWS )on 04-02-2022 Radiology Study observation (narrative) ARASELI HATFIELD [employer] Phone: XR CERVICAL SPINE FLEXION AN D EXTENSIONon 12-06-2021 Similar angulated pathologic dens fracture with posterior fixation C1-C2. [facility] EXAMINATION: 2 XRAY VIEWS OF THE [...] is a tracheostomy tube in place. Similar wsir-ns-epssniiz degenerative changes lower cervical spine. No localized prevertebral soft tissue swelling. [facility] Jose Chan MD - 12/06/2021 EXAMINATION: [...] is a tracheostomy tube in place. Similar lmqt-ux-crcqjibh degenerative changes lower cervical spine. No localized prevertebral soft tissue swelling. IMPRESSION: Similar angulated pathologic dens fracture with posterior fixation C1-C2. [employer] Phone: XR CERVICAL SPINE FLEXION AN D EXTENSIONOrdered By: Jose Chan on 12-06-2021 [employer] Phone: XR CERVICAL SPINE FLEXION AN D EXTENSIONon 12-04-2021 Radiology Study observation (narrative) ARASELI FR[facility]ER [facility] Work Phone: Basic Metabolic Panelon 10- Anion gap [Moles/Vol] 15.1 mmol/L High 6.0-15.0 [facility] Comment on above: Performed By: #### C BC, BMP #### [facility] [address] Calcium [Mass/Vol] 9.6 mg/dL Normal 8.2-10.2 [place] Comment on above: Result Comment: PERF ORMED BY: [place] [address] PATHOLOGIST SOFTWARE SUPPORT TECHNICIAN ALEYDA GUERRIER M.D. Performed By: #### C BC, BMP #### [facility] [address] Chloride [Moles/Vol] 97 mmol/L Normal 95-114 [facility] Comment on above: Performed By: #### C BC, BMP #### [facility] [address] CO2 [Moles/Vol] 25.4 mmol/L Normal 22.0-30.0 [facility] Comment on above: Performed By: #### C BC, BMP #### [facility] [address] Creatinine [Mass/Vol] 0.82 mg/dL Normal 0.44-1.03 [facility] Comment on above: Performed By: #### C BC, BMP #### [facility] [address] [place] [address] [place] Estimated GFR ( Jesusita > 60 Normal [facility] Comment on above: Result Comment: GFR estimated reference range: According to KDOQI guidelines, <60 ml/min/1.73m2 is sufficient to diagnose a patient with chronic kidney disease. Performed By: #### C BC, BMP #### [facility] [address] [place] [address] [place] Estimated GFR (Non- Am > 60 Normal [facility] Comment on above: Performed By: #### C BC, BMP #### [facility] [address] [place] [address] [place] Glucose [Mass/Vol] 105 mg/dL High 70-100 [place] Comment on above: Result Comment: [place] Glucose Reference Range is dependent on time and content of last meal. Glucose of more than 200 mg/dL in a nonstressed, ambulatory subject supports the diagnosis of Diabetes Mellitus. ADA recommended reference range Performed By: #### C BC, BMP #### [facility] [address] Potassium [Moles/Vol] 4.5 mmol/L Normal 3.5-5.1 [facility] Comment on above: Performed By: #### C BC, BMP #### [facility] [address] Sodium [Moles/Vol] 133 mmol/L Low 136-146 [place] Comment on above: Performed By: #### C BC, BMP #### [facility] [address] [place] [address] [place] Urea nitrogen [Mass/Vol] 31 mg/dL High 9-23 [facility] Comment on above: Performed By: #### C BC, BMP #### [facility] [address] [place] [address] [place] Basophils Auto (Bld) [#/Vol] Ordered By: Rufus Perez on 11-22-2021 Basophils (Bld) [#/Vol] 0.0 10*3/uL 0.0-0.2 [facility] Basophils/100 WBC Auto (Bld) Ordered By: Rufus Perez on 11-22-2021 Basophils/100 WBC (Bld) 0.3 % . [facility] Blood hemoglobin measurement (mass/volume)Ordered By: Rufus Perez on 11-22-2021 Hemoglobin (Bld) [Mass/Vol] 10.1 g/dL 11.8-15.4 [facility] Blood leukocytes automated c ount (number/volume)Ordered By: Rufus Perez on 11-22-2021 WBC (Bld) [#/Vol] 12.2 10*3/uL 4.5-11.0 [facility] Complete Blood Count Auto Di ffon 11-22-2021 Basophils (Bld) [#/Vol] 0.0 10*3/uL Normal 0.0-0.2 [facility] Comment on above: Result Comment: PERF ORMED BY: [place] [address] PATHOLOGIST SOFTWARE SUPPORT TECHNICIAN ALEYDA GUERRIER M.D. Performed By: #### C BC, BMP #### [facility] [address] Basophils/100 WBC (Bld) 0.3 % Normal . [facility] Comment on above: Performed By: #### C BC, BMP #### [facility] [address] Eosinophils (Bld) [#/Vol] 0.2 10*3/uL Normal 0.0-0.45 [facility] Comment on above: Performed By: #### C BC, BMP #### [facility] [address] Eosinophils/100 WBC (Bld) 2.0 % Normal . [facility] Comment on above: Performed By: #### C BC, BMP #### [facility] [address] Erythrocyte distribution width (RBC) [Ratio] 19.2 % High 11.9-15.3 [facility] Comment on above: Performed By: #### C BC, BMP #### [facility] [address] [place] [address] [place] Hematocrit (Bld) [Volume fraction] 32.0 % Low 34.0-46.4 [facility] Comment on above: Performed By: #### C BC, BMP #### [facility] [address] Hemoglobin (Bld) [Mass/Vol] 10.1 g/dL Low 11.8-15.4 [facility] Comment on above: Performed By: #### C BC, BMP #### [facility] [address] Lymphocytes (Bld) [#/Vol] 2.2 10*3/uL Normal 1.00-4.8 [facility] Comment on above: Performed By: #### C BC, BMP #### [facility] [address] Lymphocytes/100 WBC (Bld) 18.2 % Normal . [facility] Comment on above: Performed By: #### C BC, BMP #### [facility] [address] MCH (RBC) [Entitic mass] 27.0 pg Normal 24.7-34.3 [facility] Comment on above: Performed By: #### C BC, BMP #### [address] MCV (RBC) [Entitic vol] 85.7 fL Normal 80-100 [facility] Comment on above: Performed By: #### C BC, BMP #### [address] Mean Corpuscular HGB Conc 31.5 g/dL Low 32.0-35.0 [facility] Comment on above: Performed By: #### C BC, BMP #### [address] Monocytes (Bld) [#/Vol] 0.6 10*3/uL Normal 0.0-0.8 [facility] Comment on above: Performed By: #### C BC, BMP #### [place] [address] [place] Monocytes/100 WBC (Bld) 5.3 % Normal . [facility] Comment on above: Performed By: #### C BC, BMP #### [address] Neutrophils (Bld) [#/Vol] 9.0 10*3/uL High 1.8-7.7 [facility] Comment on above: Performed By: #### C BC, BMP #### [address] [place] [address] [place] Neutrophils/100 WBC (Bld) 74.2 % Normal . [facility] Comment on above: Performed By: #### C CORIE, BMP #### [facility] [address] Nucleated RBC/100 WBC (Bld) [Ratio] 0.0 % Normal 0-0.5 [facility] Comment on above: Performed By: #### C CORIE, BMP #### [facility] [address] Platelet mean volume (Bld) [Entitic vol] 7.4 fL Normal 6.3-10.7 [facility] Comment on above: Performed By: #### C CORIE, BMP #### [facility] [address] Platelets (Bld) [#/Vol] 543 10*3/uL High 150-450 [facility] Comment on above: Performed By: #### C CORIE, BMP #### [address] RBC (Bld) [#/Vol] 3.74 10*6/uL Normal 3.60-5.00 [facility] Comment on above: Performed By: #### C CORIE, BMP #### [place] [address] [place] WBC (Bld) [#/Vol] 12.2 10*3/uL High 4.5-11.0 [facility] Comment on above: Performed By: #### C CORIE, BMP #### [address] Creatinine and Glomerular fi ltration rate.predicted panel (S/P/Bld)Ordered By: Rufus Perez on 11-22-2021 Creatinine [Mass/Vol] 0.82 mg/dL 0.44-1.03 [facility] Eosinophils Auto (Bld) [#/Vo l]Ordered By: Rufus Perez on 11-22-2021 Eosinophils (Bld) [#/Vol] 0.2 10*3/uL 0.0-0.45 [facility] Eosinophils/100 WBC Auto (Bl d)Ordered By: Rufus Perez on 11-22-2021 Eosinophils/100 WBC (Bld) 2.0 % . [facility] Erythrocyte distribution wid th Auto (RBC) [Ratio]Ordered By: Rufus Perez on 11-22-2021 Erythrocyte distribution width (RBC) [Ratio] 19.2 % 11.9-15.3 [facility] Estimated glomerular filtrat ion rate (GFR) non- AmericanOrdered By: Rufus Perez on 11-22-2021 GFR/1.73 sq M.predicted among non-blacks MDRD (S/P/Bld) [Vol rate/Area] > 60 mL/Min [facility] Hematocrit Auto (Bld) [Volum e fraction]Ordered By: Rufus Perez on 11-22-2021 Hematocrit (Bld) [Volume fraction] 32.0 % 34.0-46.4 [facility] [facility] Hematology and Cell countsOrdered By: Rufus Perez on 11-22-2021 Nucleated RBC/100 WBC (Bld) [Ratio] 0.0 % 0-0.5 [facility] Lymphocytes Auto (Bld) [#/Vo l]Ordered By: Rufus Perez on 11-22-2021 Lymphocytes (Bld) [#/Vol] 2.2 10*3/uL 1.00-4.8 [facility] Lymphocytes/100 WBC Auto (Bl d)Ordered By: Rufus Perez on 11-22-2021 Lymphocytes/100 WBC (Bld) 18.2 % . [facility] MCH Auto (RBC) [Entitic mass ]Ordered By: Rufus Perez on 11-22-2021 MCH (RBC) [Entitic mass] 27.0 pg 24.7-34.3 [facility] MCHC Auto (RBC) [Mass/Vol]Or dered By: Rufus Perez on 11-22-2021 MCHC (RBC) [Mass/Vol] 31.5 g/dL 32.0-35.0 [facility] MCV Auto (RBC) [Entitic vol] Ordered By: Rufus Perez on 11-22-2021 MCV (RBC) [Entitic vol] 85.7 fL 80-100 F [facility] Monocytes Auto (Bld) [#/Vol] Ordered By: Rufus Perez on 11-22-2021 Monocytes (Bld) [#/Vol] 0.6 10*3/uL 0.0-0.8 [facility] Monocytes/100 WBC Auto (Bld) Ordered By: Rufus Perez on 11-22-2021 Monocytes/100 WBC (Bld) 5.3 % . [facility] Neutrophils Auto (Bld) [#/Vo l]Ordered By: Rufus Perez on 11-22-2021 Neutrophils (Bld) [#/Vol] 9.0 10*3/uL 1.8-7.7 [facility] Neutrophils/100 WBC Auto (Bl d)Ordered By: Rufus Perez on 11-22-2021 Neutrophils/100 WBC (Bld) 74.2 % . [facility] No Panel InformationOrdered By: Rufus Perez on 11-22-2021 Estimated GFR () > 60 mL/Min [facility] Comment on above: GFR estimated refere nce range: According to KDOQI guidelines, <60 ml/min/1.73m2 is sufficient to diagnose a patient with chronic kidney disease. Pharmacy Creatinine Clearance (Chem N/A [facility] Platelet mean volume Auto (B ld) [Entitic vol]Ordered By: Rufus Perez on 11-22-2021 Platelet mean volume (Bld) [Entitic vol] 7.4 fL 6.3-10.7 [facility] Platelets Auto (Bld) [#/Vol] Ordered By: Rufus Perez on 11-22-2021 Platelets (Bld) [#/Vol] 543 10*3/uL 150-450 [facility] RBC Auto (Bld) [#/Vol]Ordere d By: Rufus Perez on 11-22-2021 RBC (Bld) [#/Vol] 3.74 10*6/uL 3.60-5.00 [facility] Serum or plasma anion gap de terminationOrdered By: Rufus Perez on 11-22-2021 Anion gap [Moles/Vol] 15.1 mmol/L 6.0-15.0 Fi [facility] Serum or plasma calcium shakir urement (mass/volume)Ordered By: Rufus Perez on 11-22-2021 Calcium [Mass/Vol] 9.6 mg/dL 8.2-10.2 [place] Serum or plasma chloride giovanna surement (moles/volume)Ordered By: Rufus Perez on 11-22-2021 Chloride [Moles/Vol] 97 mmol/L 95-114 [facility] Serum or plasma glucose shakir urement (mass/volume)Ordered By: Rufus Perez on 11-22-2021 Glucose [Mass/Vol] 105 mg/dL 70-100 [place] Comment on above: ADA recommended refe rence rangeRandom Glucose Reference Range is dependent on time and content of last meal. Glucose of more than 200 mg/dL in a nonstressed, ambulatory subject supports the diagnosis of Diabetes Mellitus. Serum or plasma potassium me asurement (moles/volume)Ordered By: Rufus Perez on 11-22-2021 Potassium [Moles/Vol] 4.5 mmol/L 3.5-5.1 [facility] Serum or plasma sodium measu rement (moles/volume)Ordered By: Rufus Perez on 11-22-2021 Sodium [Moles/Vol] 133 mmol/L 136-146 [place] Serum or plasma total carbon dioxide measurement (moles/volume)Ordered By: Rufus Perez on 11-22-2021 CO2 [Moles/Vol] 25.4 mmol/L 22.0-30.0 [facility] Serum or plasma urea nitroge n measurement (mass/volume)Ordered By: Rufus Perez on 11-22-2021 Urea nitrogen [Mass/Vol] 31 mg/dL 9-23 [facility] BASIC METABOLIC PANELon 10-18 Anion gap [Moles/Vol] 10 mmol/L Normal <=30 [facility] Comment on above: Performed By: #### L [id number] #### [facility] ([facility]) [address] [place] [address] Calcium [Mass/Vol] 9.6 mg/dL Normal 8.6-10.3 Stacie freed [facility] Comment on above: Performed By: #### L [id number] #### [facility] ([facility]) [address] [place] [address] Chloride [Moles/Vol] 101 mmol/L Normal 98-107 [facility] Comment on above: Performed By: #### L [id number] #### [facility] ([facility] [address] [place] [address] CO2 [Moles/Vol] 28 mmol/L Normal 21-31 [facility] Comment on above: Performed By: #### L [id number] #### [facility] ([facility]) [address] [place] [address] Creatinine [Mass/Vol] 0.71 mg/dL Normal 0.60-1.20 [facility] Comment on above: Performed By: #### L [id number] #### [facility] ([facility]) [address] [place] [address] GLOMERULAR FILTRATION RATE ML/MIN/1.73 SQ M.PREDICTED 94.2 mL/min/1.73m*2 Normal >60.0 [facility] Comment on above: Result Comment: The [facility]???s estimated glomerular filtration rate (eGFR) will no [...] Performed By: #### L [id number] #### [facility] ([facility]) [address] [place] [address] Glucose [Mass/Vol] 74 mg/dL Normal 70-100 [facility] Comment on above: Performed By: #### L [id number] #### [facility] ([facility]) [address] [place] [address] Potassium [Moles/Vol] 4.3 mmol/L Normal 3.5-5.1 [facility] Comment on above: Performed By: #### L [id number] #### [facility] ([facility]) [address] [place] [address] Sodium [Moles/Vol] 139 mmol/L Normal 136-145 [facility] Comment on above: Performed By: #### L [id number] #### [facility] ([facility]) [address] [place] [address] Urea nitrogen [Mass/Vol] 36 mg/dL High 7-25 [facility] Comment on above: Performed By: #### L [id number] #### [facility] ([facility]) [address] [place] [address] UREA NITROGEN/CREATININE (MASS RATIO) IN SER/PLAS 50.70 Normal [facility] Comment on above: Performed By: #### L [id number] #### [facility] ([facility]) [address] [place] [address] HEMATOCRITon 10-27-2021 Hematocrit (Bld) [Volume fraction] 33.5 % Low 36.0-48.0 [facility] Comment on above: Performed By: #### L [id number] #### [facility] ([facility]) [address] [place] [address] HEMOGLOBINon 10-27-2021 Hemoglobin (Bld) [Mass/Vol] 10.7 g/dL Low 12.0-15.0 [facility] Comment on above: Performed By: #### L [id number] #### [facility] ([facility]) [address] [place] [address] ARTERIAL BLOOD GAS WITH ICAo n 08-21-2021 BASE EXCESS -7 mmol/L Low -2-3 [facility] Comment on above: Performed By: #### 8 4511 ####[facility] [place] [address], [place] DELIVERY SYSTEMS VENT Normal The [facility] Comment on above: Performed By: #### 8 4511 ####[facility] [place] [address], [facility] FIO2 30 % Normal The [facility] Comment on above: Performed By: #### 8 4511 ####[facility] [place] [address], [place] HCO3 (Bld) [Moles/Vol] 17 mmol/L Low 21-28 Th e [facility] Comment on above: Performed By: #### 8 4511 ####[facility] [place] [address], [place] IONIZED CALCIUM 1.20 mmol/L Normal 1.13-1.32 The [facility] Comment on above: Performed By: #### 8 4511 ####[facility] [place] [address], [place] MIN VOLUME 6.7 Normal The [facility] Comment on above: Performed By: #### 8 4511 ####[facility] [place] [address], [place] MODALITY VENT Normal The [facility] Comment on above: Performed By: #### 8 4511 ####[facility] [place] [address], [place] Oxygen (Bld) [Partial pressure] 163 mm[Hg] Critically high 83-108 The [facility] Comment on above: Performed By: #### 8 4511 ####[facility] [place] [address], [place] Oxygen saturation in Blood 97.1 % High 94.0-97.0 The [facility] Comment on above: Performed By: #### 8 4511 ####[facility] [place] [address], [place] PCO2 28 mmHg Low 35-45 The [facility] Comment on above: Performed By: #### 8 4511 ####[facility] [place] [address], [facility] PEEP 8.0 CMH20 Normal [facility] Comment on above: Performed By: #### 8 4511 ####[facility] [facility] [place] [address], [facility] PF RATIO 543 mmHg Normal [facility] Comment on above: Performed By: #### 8 4511 ####[facility] [facility], [place] [id number] [place] [address] pH (Bld) 7.39 [pH] Normal 7.35-7.45 The [facility] Comment on above: Performed By: #### 8 4511 ####[facility] [facility] [place] [address], [facility] PRESSURE SUPPORT 8 Normal The [facility] Comment on above: Performed By: #### 8 4511 ####[facility] [facility].[address] BASE EXCESS -7 mmol/L Low -2-3 The [facility] Comment on above: Performed By: #### 8 4511 ####[facility] [facility].[address] DELIVERY SYSTEMS VENT Normal The [facility] Comment on above: Performed By: #### 8 4511 ####[facility] [facility] [place] [address], [facility] FIO2 30 % Normal [facility] Comment on above: Performed By: #### 8 4511 ####[facility] [facility] [place] [address], [facility] HCO3 (Bld) [Moles/Vol] 17 mmol/L Low 21-28 Th e [facility] Comment on above: Performed By: #### 8 4511 ####[facility] [facility].[address] IONIZED CALCIUM 1.15 mmol/L Normal 1.13-1.32 The [facility] Comment on above: Performed By: #### 8 4511 ####[facility] [place] [address], [facility] MIN VOLUME 8.2 Normal The [facility] Comment on above: Performed By: #### 8 4511 ####[facility] [place] [address], [facility] MODALITY AC Normal The [facility] Comment on above: Performed By: #### 8 4511 ####[facility] [place] [address], [facility] Oxygen (Bld) [Partial pressure] 158 mm[Hg] Critically high 83-108 The [facility] Comment on above: Performed By: #### 8 4511 ####[facility], [place] [id number] [place] [address] Oxygen saturation in Blood 97.6 % High 94.0-97.0 The [facility] Comment on above: Performed By: #### 8 4511 ####[facility] [place] [address], [facility] PCO2 26 mmHg Low 35-45 The [facility] Comment on above: Performed By: #### 8 4511 ####[facility] [place] [address], [facility] PEEP 8.0 CMH20 Normal The [facility] Comment on above: Performed By: #### 8 4511 ####[facility] [place] [address], [facility] PF RATIO 526 mmHg Normal The [facility] Comment on above: Performed By: #### 8 4511 ####[facility] [place] [address], [facility] pH (Bld) 7.41 [pH] Normal 7.35-7.45 The [facility] Comment on above: Performed By: #### 8 4511 ####[facility] [place] [address], [facility] Respiratory rate 12 /min Normal The [facility] Comment on above: Performed By: #### 8 4511 ####[facility] [place] [address], [facility] TIDAL VOLUME (VT) CC 450 Normal [facility] Comment on above: Performed By: #### 8 4511 ####[facility] [place] [address], [facility] BASE EXCESS -3 mmol/L Low -2-3 The [facility] Comment on above: Performed By: #### 8 4511 ####[facility] [place] [address], [facility] DELIVERY SYSTEMS MV Normal The [facility] Comment on above: Performed By: #### 8 4511 ####[facility] [place] [address], [facility] FIO2 30 % Normal [facility] Comment on above: Performed By: #### 8 4511 ####[facility] [place] [address], [facility] HCO3 (Bld) [Moles/Vol] 21 mmol/L Normal 21-28 Th e [facility] Comment on above: Performed By: #### 8 4511 ####[facility] [place] [address], [facility] IONIZED CALCIUM 1.24 mmol/L Normal 1.13-1.32 The [facility] Comment on above: Performed By: #### 8 4511 ####[facility] [place] [address], [facility] MIN VOLUME 6.7 Normal [facility] Comment on above: Performed By: #### 8 4511 ####[facility] [place] [address], [place] MODALITY AC Normal The [facility] Comment on above: Performed By: #### 8 4511 ####[facility] [place] [address], [place] Oxygen (Bld) [Partial pressure] 155 mm[Hg] Critically high 83-108 The [facility] Comment on above: Performed By: #### 8 4511 ####[facility] [place] [address], [place] Oxygen saturation in Blood 98.3 % High 94.0-97.0 The [facility] Comment on above: Performed By: #### 8 4511 ####[facility] [place] [address], [place] PCO2 32 mmHg Low 35-45 The [facility] Comment on above: Performed By: #### 8 4511 ####[facility] [place] [address], [place] PEEP 8.0 CMH20 Normal The [facility] Comment on above: Performed By: #### 8 4511 ####[facility] [place] [address], [place] pH (Bld) 7.42 [pH] Normal 7.35-7.45 The [facility] Comment on above: Performed By: #### 8 4511 ####[facility] [place] [address], [place] Respiratory rate 12 /min Normal [facility] Comment on above: Performed By: #### 8 4511 ####[facility] [place] [address], [place] TIDAL VOLUME (VT) CC 450 Normal [facility] Comment on above: Performed By: #### 8 4511 ####[facility] [place] [address], [facility] BASIC METABOLIC PANELon 07-0 Calcium [Mass/Vol] 7.9 mg/dL Low 8.6-10.[address] [facility] Comment on above: Order Comment: No: D o not add to previous draw Performed By: #### 6 2594 #### [facility] [address] [place] [address], [place] Chloride [Moles/Vol] 110 mmol/L High 98-107 The [facility] Comment on above: Order Comment: No: D o not add to previous draw Performed By: #### 6 2594 #### [facility] [address] [place] [id number], [facility] CO2 [Moles/Vol] 20 mmol/L Low 21-31 The [facility] Comment on above: Order Comment: No: D o not add to previous draw Performed By: #### 6 2594 #### [facility] [address] [place] [address], [facility] Creatinine [Mass/Vol] 0.77 mg/dL Normal 0.60-1.20 The [facility] Comment on above: Order Comment: No: D o not add to previous draw Performed By: #### 6 2594 #### [facility] [address] [place] [id number], [place] GFR/1.73 sq M.predicted among blacks MDRD (S/P/Bld) [Vol rate/Area] mL/min/{1.73_m2} Normal >60 The [facility] Comment on above: Order Comment: No: D o not add to previous draw Performed By: #### 6 2594 #### [facility] [address] [place] [address], [place] GFR/1.73 sq M.predicted among non-blacks MDRD (S/P/Bld) [Vol rate/Area] mL/min/{1.73_m2} Normal >60 The [facility] Comment on above: Order Comment: No: D o not add to previous draw Performed By: #### 6 2594 #### [facility] [address] [place] [address], [facility] Glucose [Mass/Vol] 124 mg/dL High 70-[address] [facility] Comment on above: Order Comment: No: D o not add to previous draw Performed By: #### 6 2594 #### [facility] [address] [place] [address], [place] Potassium [Moles/Vol] 3.8 mmol/L Normal 3.5-5.1 The [facility] Comment on above: Order Comment: No: D o not add to previous draw Performed By: #### 6 2594 #### [facility] [address] [place] [address], [place] Sodium [Moles/Vol] 139 mmol/L Normal 136-[address] [facility] Comment on above: Order Comment: No: D o not add to previous draw Performed By: #### 6 2594 #### [facility] [address] [place] [address], [facility] Urea nitrogen [Mass/Vol] 26 mg/dL High 7-25 The [facility] Comment on above: Order Comment: No: D o not add to previous draw Performed By: #### 6 2594 #### [facility] [address] [place] [address], [facility] CBC COMPLETE BLOOD COUNTon 0 - Erythrocyte distribution width (RBC) [Ratio] 18.3 % High 11.5-15.0 The [facility] Comment on above: Order Comment: No: D o not add to previous draw Nurse draw Performed By: #### 5 0608 #### [facility] [address] [place] [address], [facility] Hematocrit (Bld) [Volume fraction] 24.4 % Low 36.0-45.0 The [facility] Comment on above: Order Comment: No: D o not add to previous draw Nurse draw Performed By: #### 5 0608 #### [facility] [address] [place] [address], [facility] Hemoglobin (Bld) [Mass/Vol] 8.2 g/dL Low 12.0-15.0 [facility] Comment on above: Order Comment: No: D o not add to previous draw Nurse draw Performed By: #### 5 0608 #### [facility] [address] [place] [address], [facility] MCH (RBC) [Entitic mass] 30.5 pg Normal 27.0-33.0 The [facility] Comment on above: Order Comment: No: D o not add to previous draw Nurse draw Performed By: #### 5 0608 #### [facility] [address] [place] [id number], [facility] MCHC (RBC) [Mass/Vol] 33.6 g/dL Normal 32.0-35.0 [facility] Comment on above: Order Comment: No: D o not add to previous draw Nurse draw Performed By: #### 5 0608 #### [facility] [address] [facility] [place] [address], [facility] MCV (RBC) [Entitic vol] 90.7 fL Normal 82.0-98.0 [facility] Comment on above: Order Comment: No: D o not add to previous draw Nurse draw Performed By: #### 5 0608 #### [facility] [address] [facility] [place] [address], [facility] Nucleated RBC/100 WBC (Bld) [Ratio] 0 % Normal 0-0 [facility] Comment on above: Order Comment: No: D o not add to previous draw Nurse draw Performed By: #### 5 0608 #### [facility] [address] [place] [id number], [facility] PLAT CNT 297 10*3/uL Normal 150-400 The [facility] Comment on above: Order Comment: No: D o not add to previous draw Nurse draw Performed By: #### 5 0608 #### [facility] [address] [facility] [place] [address], [facility] RBC (Bld) [#/Vol] 2.69 10*6/uL Low 3.80-5.00 [facility] Comment on above: Order Comment: No: D o not add to previous draw Nurse draw Performed By: #### 5 0608 #### [facility] [address] [place] [address], [facility] WBC (Bld) [#/Vol] 11.33 10*3/uL High 4.00-10.60 [facility] Comment on above: Order Comment: No: D o not add to previous draw Nurse draw Performed By: #### 5 0608 #### [facility] [address] [place] [address], [facility] CT BRAIN WO CONTRASTon 08-21 CT BRAIN WO CONTRAST [facility] Department of Radiology [address] [place] [id number] Patient Name: MEG GEORGES : 1965 Sex: F Age: Race: White Pt. Location: [place] [address] Patient Status: I Ordered Date: 08/21/2021 12:50:00 PM Completed Date: 08/21/2021 01:39 PM Requesting Provider: CLAUDETTE PRIEST Attending Provider: JERRY POZO Report Copy [...] inflammatory process. Approved by:Ariel Fuentes08/21/2021 4:51 PM. Martinez Olea,have reviewed the image(s) and agree with the findings in this report. Electronically signed: Martinez Hoover. Transcribed by: [email or web address], User Resident: ARIEL SOLORZANO Electronically Signed by: MARTINEZ HOOVER @ 08/21/2021 05:07 PM I personally read this/these film(s) with this resident Normal [facility] Comment on above: Order Comment: Check NG Tube Position CT FACIAL BONES W CONTRASTon 08-21-2021 CT FACIAL BONES W CONTRAST [facility] Department of Radiology [address] [place] [id number] Patient Name: MEG GEORGES : 1965 Sex: F Age: Race: White Pt. Location: [place] [address] Patient Status: I Ordered Date: 08/21/2021 12:50:00 PM Completed Date: 08/21/2021 01:39 PM Requesting Provider: CLAUDETTE PRIEST Attending Provider: JERRY POZO Report Copy [...] above. Electronically signed: Martinez Hoover. Transcribed by: [email or web address], User Resident: Electronically Signed by: MARTINEZ HOOVER @ 08/21/2021 05:09 PM Normal [facility] Comment on above: Order Comment: R/O A telectasis LACTATE BLOODon 08-21-2021 Lactate [Moles/Vol] 0.6 mmol/L Normal .5-2.2 [facility] Comment on above: Order Comment: No: D o not add to previous draw Performed By: #### 1 0054 ####[facility] LIVER BATTERYon 08-21-2021 Albumin [Mass/Vol] 2.3 g/dL Low 3.5-5.[address] [facility] Comment on above: Order Comment: No: D o not add to previous draw Performed By: #### 6 2594 #### [facility] [address] ALKALINE PHOSPH 172 IU/L High 34-104 [facility] Comment on above: Order Comment: No: D o not add to previous draw Performed By: #### 6 2594 #### [facility] [address] ALT [Catalytic activity/Vol] 9 U/L Normal 7-52 [facility] Comment on above: Order Comment: No: D o not add to previous draw Performed By: #### 6 2594 #### [facility] 3000 [place] [address], [place] AST [Catalytic activity/Vol] 12 U/L Low 13-39 [facility] Comment on above: Order Comment: No: D o not add to previous draw Performed By: #### 6 2594 #### [facility] [address] [place] [address], [facility] Bilirubin [Mass/Vol] 0.4 mg/dL Normal 0.3-1.0 [facility] Comment on above: Order Comment: No: D o not add to previous draw Performed By: #### 6 2594 #### [facility] [address] [place] [address], [facility] Bilirubin.direct [Mass/Vol] 0.1 mg/dL Normal 0.0-0.2 [facility] Comment on above: Order Comment: No: D o not add to previous draw Performed By: #### 6 2594 #### [facility] [address] [place] [address], [facility] Protein [Mass/Vol] 5.7 g/dL Low 6.0-8.[address] [facility] Comment on above: Order Comment: No: D o not add to previous draw Performed By: #### 6 2594 #### [facility] [address] [place] [address], [facility] MAGNESIUM BLOODon 08-21-2021 Magnesium [Mass/Vol] 2.1 mg/dL Normal 1.9-2.7 [facility] Comment on above: Order Comment: No: D o not add to previous draw Performed By: #### 6 2594 #### [facility] [address] [place] [address], [facility] Operative Reporton 2 Operative Report MR#: [id number] I [facility] Pt. Name: Meg Georges Room #: [id number] Discharge Date: Birthdate: 1965 OPERATIVE REPORT DATE OF SURGERY: 08/21/2021 SURGEON: Jerry Pozo MD Operative report: Percutaneous endoscopic gastrostomy tube placement Location: [facility] main OR Date: 08/21/2021 Preoperative diagnosis: Oropharyngeal dysphagia, nasopharyngeal erosion Postoperative diagnosis: Same Operation performed: Percutaneous endoscopic gastrostomy tube placement Surgeon: Jerry Pozo MD Environmental Marketing Representative: Garfield Bowen MD ( resident PGY 5) Estimated blood loss: 2 mL Wound classification: Clean contaminated Tubes and drains: 20 Turkish gastrostomy tube pull type Local anesthetic: 1% lidocaine plain, 4 mL used for subcutaneous infiltration Anesthesia: General anesthesia Indication: This is a 56-year-old woman who had a prolonged hospitalization at [facility] in [place] over the last several months for COVID-related pneumonia and subsequent bacterial pneumonia complications. Patient had chronic hypoxemic respiratory failure requiring placement of tracheostomy approximately 2 weeks ago prior to transfer to [facility]. Patient presented to [facility] 1 day ago for acute bleeding seen [...] Pozo MD Date Trans: 08/21/2021 11:17 A/ LAUREN_JN:[id number] cc: Johny Beckman M.D. [address] [place] [address] Emergency Medicine [place] [address] Neri Santa D.O. [address] [place] [id number] Normal [facility] PHOSPHORUS BLOODon 2 Phosphate [Mass/Vol] 2.3 mg/dL Low 2.5-5.0 [facility] Comment on above: Order Comment: No: D o not add to previous draw Performed By: #### 6 2594 #### [facility] [address] [facility] [place] [address], [facility] POC GLUCOSE LABon 08-21-2021 Glucose [Mass/Vol] 138 mg/dL High 70-[address] [facility] Comment on above: Performed By: #### 8 5499 #### [facility] 3000 [facility] [place] [address], [facility] Glucose [Mass/Vol] 164 mg/dL High 70-[address] [facility] Comment on above: Performed By: #### 8 5499 ####[facility] [facility] [place] [address], [facility] Glucose [Mass/Vol] 143 mg/dL High 70-[address] [facility] Comment on above: Order Comment: Bleed ing s/p recent tracheostomy Performed By: #### 8 5499 ####[facility]3000 [facility] [place] [address], [facility] Glucose [Mass/Vol] 124 mg/dL High 70-[address] [facility] Comment on above: Performed By: #### 8 5499 ####[facility] [place] [address], [facility] PORTABLE CHEST 1 VIEW PORTABLE CHEST 1 VIEW [facility] Department of Radiology [address] [place] [address] Patient Name: MEG GEORGES : 1965 Sex: F Age: Race: White Pt. Location: [place] [address] Patient Status: I Ordered Date: 08/21/2021 5:00:00 [...] unchanged. Electronically signed: Yaritza Young. Transcribed by: [email or web address], User Resident: Electronically Signed by: YARITZA YOUNG @ 08/21/2021 07:38 AM Normal [facility] Comment on above: Order Comment: R/O A telectasis *BLOOD CULTUREon 08-20-2021 *BLOOD CULTURE Clinical Report: (D) Specimen: BLOOD CULTURE Collected: 08/20/2021 00:47 Status: Final Last Updated: 08/25/2021 06:53 (1) RIGHT AC @ 0045. CULT RES (Final) No Growth Day 5 Normal [facility] Comment on above: Order Comment: RIGHT AC @ 0045. Performed By: #### 3 0313 #### [facility] [address] *BLOOD CULTURE Clinical Report: (D) Specimen: BLOOD CULTURE Collected: 08/20/2021 00:47 Status: Final Last Updated: 08/25/2021 06:53 (1) LEFT AC @ 0040. CULT RES (Final) No Growth Day 5 Normal [facility] Comment on above: Order Comment: Bleed ing s/p recent tracheostomy Performed By: #### 3 0313 ####[facility] APTTon 08-20-2021 aPTT Coag (Bld) [Time] 58.3 s High 25.0-35.0 Th e [facility] Comment on above: Result Comment: ALL RESULTS [...] PURPOSE. Performed By: #### 6 2594 #### [facility] [address] ARTERIAL BLOOD GAS WITH ICAo n 08-20-2021 BASE EXCESS -2 mmol/L Normal -2-3 [facility] Comment on above: Order Comment: RESUL TS CHECKED AND CALLED. ACCURATELY READ BACK BY DR CALI Performed By: #### 8 4511 ####[facility]3000 [facility].[address] DELIVERY SYSTEMS MV Normal [facility] Comment on above: Order Comment: RESUL TS CHECKED AND CALLED. ACCURATELY READ BACK BY DR CALI Performed By: #### 8 4511 ####[facility] [facility] [place] [address], [facility] FIO2 50 % Normal [facility] Comment on above: Order Comment: RESUL TS CHECKED AND CALLED. ACCURATELY READ BACK BY DR CALI Performed By: #### 8 4511 ####[facility]3000 [facility] [place] [address], [facility] HCO3 (Bld) [Moles/Vol] 20 mmol/L Low 21-28 e [facility] Comment on above: Order Comment: RESUL TS CHECKED AND CALLED. ACCURATELY READ BACK BY DR CALI Performed By: #### 8 4511 ####[facility] IONIZED CALCIUM 1.09 mmol/L Low 1.13-1.32 The [facility] Comment on above: Order Comment: RESUL TS CHECKED AND CALLED. ACCURATELY READ BACK BY DR CALI Performed By: #### 8 4511 ####[facility] [place] [address], [facility] MIN VOLUME 8.9 Normal [facility] Comment on above: Order Comment: RESUL TS CHECKED AND CALLED. ACCURATELY READ BACK BY DR CALI Performed By: #### 8 4511 ####[facility] [place] [address], [facility] MODALITY AC Normal [facility] Comment on above: Order Comment: RESUL TS CHECKED AND CALLED. ACCURATELY READ BACK BY DR CALI Performed By: #### 8 4511 ####[facility] [place] [address], [facility] Oxygen (Bld) [Partial pressure] 239 mm[Hg] Critically high 83-108 [facility] Comment on above: Order Comment: RESUL TS CHECKED AND CALLED. ACCURATELY READ BACK BY DR CALI Performed By: #### 8 4511 ####[facility] [place] [address], [facility] Oxygen saturation in Blood 97.6 % High 94.0-97.0 [facility] Comment on above: Order Comment: RESUL TS CHECKED AND CALLED. ACCURATELY READ BACK BY DR CALI Performed By: #### 8 4511 ####[facility] [place] [address], [facility] PCO2 24 mmHg Critically low 35-45 The [facility] Comment on above: Order Comment: RESUL TS CHECKED AND CALLED. ACCURATELY READ BACK BY DR CALI Performed By: #### 8 4511 ####[facility] [place] [address], [facility] PEEP 8.0 CMH20 Normal [facility] Comment on above: Order Comment: RESUL TS CHECKED AND CALLED. ACCURATELY READ BACK BY DR CALI Performed By: #### 8 4511 ####[place] [id number] [facility].[address] pH (Bld) 7.52 [pH] High 7.35-7.45 The [facility] Comment on above: Order Comment: RESUL TS CHECKED AND CALLED. ACCURATELY READ BACK BY DR CALI Performed By: #### 8 4511 ####[facility]3000 [facility].[address] Respiratory rate 14 /min Normal The [facility] Comment on above: Order Comment: RESUL TS CHECKED AND CALLED. ACCURATELY READ BACK BY DR CALI Performed By: #### 8 4511 ####[place] [id number] [facility].[address] TIDAL VOLUME (VT) CC 550 Normal [facility] Comment on above: Order Comment: RESUL TS CHECKED AND CALLED. ACCURATELY READ BACK BY DR CALI Performed By: #### 8 4511 ####[place] [address] [facility].[address] BASIC METABOLIC PANELon 07-0 Calcium [Mass/Vol] 6.2 mg/dL Critically low 8.6-10.3 Th e [facility] Comment on above: Order Comment: Check NG Tube Position Performed By: #### 1 0070, 52850, 14018, 59962 ####[facility]3000 [facility] [place] [address], [facility] Chloride [Moles/Vol] 112 mmol/L High 98-107 [facility] Comment on above: Order Comment: Check NG Tube Position Performed By: #### 1 0070, 12853, 75391, 02579 ####[facility]3000 [facility] [place] [address], [facility] CO2 [Moles/Vol] 17 mmol/L Low 21-31 The [facility] Comment on above: Order Comment: Check NG Tube Position Performed By: #### 1 0070, 06937, 48933, 67263 ####[facility]3000 [facility] [place] [address], [facility] Creatinine [Mass/Vol] 0.80 mg/dL Normal 0.60-1.20 [facility] Comment on above: Order Comment: Check NG Tube Position Performed By: #### 1 0070, 53684, 94570, 18059 ####[facility]3000 [facility] [place] [address], [facility] GFR/1.73 sq M.predicted among blacks MDRD (S/P/Bld) [Vol rate/Area] mL/min/{1.73_m2} Normal >60 The [facility] Comment on above: Order Comment: Check NG Tube Position Performed By: #### 1 0070, 15952, 80536, 09348 ####[facility]3000 [facility] [place] [address], [facility] GFR/1.73 sq M.predicted among non-blacks MDRD (S/P/Bld) [Vol rate/Area] mL/min/{1.73_m2} Normal >60 The [facility] Comment on above: Order Comment: Check NG Tube Position Performed By: #### 1 0070, 02137, 56477, 98518 ####[facility]3000 [facility] [place] [address], [facility] Glucose [Mass/Vol] 123 mg/dL High 70-[address] [facility] Comment on above: Order Comment: Check NG Tube Position Performed By: #### 1 0070, 37727, 18782, 31553 ####[facility]3000 [facility] [place] [address], [facility] Potassium [Moles/Vol] 3.1 mmol/L Low 3.5-5.1 [facility] Comment on above: Order Comment: Check NG Tube Position Performed By: #### 1 0070, 98539, 40656, 80149 ####[facility]3000 [facility].[address] Sodium [Moles/Vol] 137 mmol/L Normal 136-[address] [facility] Comment on above: Order Comment: Check NG Tube Position Performed By: #### 1 0070, 80284, 70129, 19546 ####[facility]3000 [facility].[address] Urea nitrogen [Mass/Vol] 31 mg/dL High 7-25 The [facility] Comment on above: Order Comment: Check NG Tube Position Performed By: #### 1 0070, 63909, 66104, 49075 ####[facility] CBC W/DIFFon 08-20-2021 ABS IMM GRANS 0.1 10*3/uL Normal 0.0-0.2 The [facility] Comment on above: Order Comment: Bleed ing s/p recent tracheostomy Performed By: #### 5 0103 ####[facility] ABS NEUTROPHILS 9.2 10*3/uL High 1.6-7.6 The [facility] Comment on above: Order Comment: Bleed ing s/p recent tracheostomy Performed By: #### 5 0103 ####[facility] Basophils (Bld) [#/Vol] 0.0 10*3/uL Normal 0.0-0.2 The [facility] Comment on above: Order Comment: Bleed ing s/p recent tracheostomy Performed By: #### 5 0103 ####[facility] Basophils/100 WBC (Bld) 0.3 % Normal 0.0-1.0 [facility] Comment on above: Order Comment: Bleed ing s/p recent tracheostomy Performed By: #### 5 0103 ####[facility] Eosinophils (Bld) [#/Vol] 0.1 10*3/uL Normal 0.0-0.5 The [facility] Comment on above: Order Comment: Bleed ing s/p recent tracheostomy Performed By: #### 5 0103 ####[facility] Eosinophils/100 WBC (Bld) 0.4 % Normal 0.0-6.0 The [facility] Comment on above: Order Comment: Bleed ing s/p recent tracheostomy Performed By: #### 5 0103 ####[facility] Erythrocyte distribution width (RBC) [Ratio] 17.2 % High 11.5-15.0 The [facility] Comment on above: Order Comment: Bleed ing s/p recent tracheostomy Performed By: #### 5 0103 ####[facility] Hematocrit (Bld) [Volume fraction] 23.9 % Low 36.0-45.0 The [facility] Comment on above: Order Comment: Bleed ing s/p recent tracheostomy Performed By: #### 5 0103 ####[facility] Hemoglobin (Bld) [Mass/Vol] 8.1 g/dL Low 12.0-15.0 The [facility] Comment on above: Order Comment: Bleed ing s/p recent tracheostomy Performed By: #### 5 0103 ####[facility] IMMATURE GRANS 0.6 % Normal 0.0-1.0 The [facility] Comment on above: Order Comment: Bleed ing s/p recent tracheostomy Performed By: #### 5 0103 ####[facility] Lymphocytes (Bld) [#/Vol] 3.3 10*3/uL Normal 1.2-4.0 The [facility] Comment on above: Order Comment: Bleed ing s/p recent tracheostomy Performed By: #### 5 0103 ####[facility] Lymphocytes/100 WBC (Bld) 24.4 % Normal 20.0-45.0 The [facility] Comment on above: Order Comment: Bleed ing s/p recent tracheostomy Performed By: #### 5 0103 ####[facility] MCH (RBC) [Entitic mass] 30.6 pg Normal 27.0-33.0 The [facility] Comment on above: Order Comment: Bleed ing s/p recent tracheostomy Performed By: #### 5 0103 ####[facility] MCHC (RBC) [Mass/Vol] 33.9 g/dL Normal 32.0-35.0 The [facility] Comment on above: Order Comment: Bleed ing s/p recent tracheostomy Performed By: #### 5 0103 ####[facility] MCV (RBC) [Entitic vol] 90.2 fL Normal 82.0-98.0 [facility] Comment on above: Order Comment: Bleed ing s/p recent tracheostomy Performed By: #### 5 0103 ####[facility] [place] [address] Monocytes (Bld) [#/Vol] 1.0 10*3/uL Normal 0.1-1.0 The [facility] Comment on above: Order Comment: Bleed ing s/p recent tracheostomy Performed By: #### 5 0103 ####[facility] [place] [address], [facility] MONOS 7.2 % Normal 5.0-12.0 The [facility] Comment on above: Order Comment: Bleed ing s/p recent tracheostomy Performed By: #### 5 0103 ####[facility] Neutrophils/100 WBC (Bld) 67.1 % Normal 40.0-72.0 The [facility] Comment on above: Order Comment: Bleed ing s/p recent tracheostomy Performed By: #### 5 0103 ####[facility] Nucleated RBC/100 WBC (Bld) [Ratio] 0 % Normal 0-0 The [facility] Comment on above: Order Comment: Bleed ing s/p recent tracheostomy Performed By: #### 5 0103 ####[facility]3000 [facility] [place] [address], [facility] PLAT CNT 328 10*3/uL Normal 150-400 The [facility] Comment on above: Order Comment: Bleed ing s/p recent tracheostomy Performed By: #### 5 0103 ####[facility]3000 [facility] [place] [address], [facility] RBC (Bld) [#/Vol] 2.65 10*6/uL Low 3.80-5.00 The [facility] Comment on above: Order Comment: Bleed ing s/p recent tracheostomy Performed By: #### 5 0103 ####[facility] [place] [address], [facility] WBC (Bld) [#/Vol] 13.67 10*3/uL High 4.00-10.60 The [facility] Comment on above: Order Comment: Bleed ing s/p recent tracheostomy Performed By: #### 5 0103 ####[facility]3000 [facility].[address] ABS IMM GRANS 0.2 10*3/uL Normal 0.0-0.2 The [facility] Comment on above: Performed By: #### 5 0103 ####[facility]3000 [facility] [place] [address], [facility] ABS NEUTROPHILS 18.9 10*3/uL High 1.6-7.6 The [facility] Comment on above: Performed By: #### 5 0103 ####[facility]3000 [facility].[address] Basophils (Bld) [#/Vol] 0.1 10*3/uL Normal 0.0-0.2 The [facility] Comment on above: Performed By: #### 5 0103 ####[facility]3000 [facility] [place] [address], [facility] Basophils/100 WBC (Bld) 0.4 % Normal 0.0-1.0 T jj [facility] Comment on above: Performed By: #### 5 0103 ####[facility]3000 [facility] [place] [address], [facility] Eosinophils (Bld) [#/Vol] 0.4 10*3/uL Normal 0.0-0.5 [facility] Comment on above: Performed By: #### 5 0103 ####[facility]3000 [facility] [place] [address], [facility] Eosinophils/100 WBC (Bld) 1.7 % Normal 0.0-6.0 The [facility] Comment on above: Performed By: #### 5 0103 ####[facility] Erythrocyte distribution width (RBC) [Ratio] 17.4 % High 11.5-15.0 The [facility] Comment on above: Performed By: #### 5 0103 ####[facility]3000 [facility].[address] Hematocrit (Bld) [Volume fraction] 25.5 % Low 36.0-45.0 The [facility] Comment on above: Performed By: #### 5 0103 ####[facility]3000 [facility] [place] [address], [facility] Hemoglobin (Bld) [Mass/Vol] 8.1 g/dL Low 12.0-15.0 The [facility] Comment on above: Performed By: #### 5 0103 ####[facility]3000 [facility] [place] [address], [facility] IMMATURE GRANS 0.8 % Normal 0.0-1.0 [facility] Comment on above: Performed By: #### 5 0103 ####[facility] Lymphocytes (Bld) [#/Vol] 2.8 10*3/uL Normal 1.2-4.0 The [facility] Comment on above: Performed By: #### 5 0103 ####[place] [id number] [address] Lymphocytes/100 WBC (Bld) 11.7 % Low 20.0-45.0 The [facility] Comment on above: Performed By: #### 5 0103 ####[facility]3000 [facility] [place] [address], [facility] MCH (RBC) [Entitic mass] 31.5 pg Normal 27.0-33.0 The [facility] Comment on above: Performed By: #### 5 3 ####[facility]3000 [facility] [place] [address], [facility] MCHC (RBC) [Mass/Vol] 31.8 g/dL Low 32.0-35.0 The [facility] Comment on above: Performed By: #### 5 0103 ####[facility]3000 [facility] [place] [address], [facility] MCV (RBC) [Entitic vol] 99.2 fL High 82.0-98.0 T he [facility] Comment on above: Performed By: #### 5 0103 ####[facility]3000 [facility] [place] [address], [facility] Monocytes (Bld) [#/Vol] 1.5 10*3/uL High 0.1-1.0 The [facility] Comment on above: Performed By: #### 5 0103 ####[facility]3000 [facility].[address] MONOS 6.2 % Normal 5.0-12.0 The [facility] Comment on above: Performed By: #### 5 0103 ####[facility]3000 [facility].[address] Neutrophils/100 WBC (Bld) 79.2 % High 40.0-72.0 The [facility] Comment on above: Performed By: #### 5 3 ####[facility]3000 [facility].[address] Nucleated RBC/100 WBC (Bld) [Ratio] 0 % Normal 0-0 The [facility] Comment on above: Performed By: #### 5 3 ####[facility]3000 [facility] [place] [address], [facility] PLAT CNT 538 10*3/uL High 150-400 The [facility] Comment on above: Performed By: #### 5 3 ####[facility] [place] [address], [facility] RBC (Bld) [#/Vol] 2.57 10*6/uL Low 3.80-5.00 The [facility] Comment on above: Performed By: #### 5 0103 ####[facility] [place] [address], [facility] WBC (Bld) [#/Vol] 23.85 10*3/uL High 4.00-10.60 The [facility] Comment on above: Performed By: #### 5 0103 ####[facility] [place] [address], [facility] COMP METABOLIC PANELon 08-20 Albumin [Mass/Vol] 2.5 g/dL Low 3.5-5.[address] [facility] Comment on above: Performed By: #### 3 0, 43144 ####[facility] [id number], [facility] ALKALINE PHOSPH 314 IU/L High 34-104 The [facility] Comment on above: Performed By: #### 3 5199, 40371 ####[facility] [place] [address], [place] ALT [Catalytic activity/Vol] 14 U/L Normal 7-52 The [facility] Comment on above: Performed By: #### 3 0, 70292 ####[facility] [place] [address], [facility] AST [Catalytic activity/Vol] 21 U/L Normal 13-39 The [facility] Comment on above: Performed By: #### 3 0, 21678 ####[facility] [place] [address], [facility] Bilirubin [Mass/Vol] 0.6 mg/dL Normal 0.3-1.0 The [facility] Comment on above: Performed By: #### 3 5199, 72241 ####[facility] [place] [address], [place] Calcium [Mass/Vol] 8.0 mg/dL Low 8.6-10.[address] [facility] Comment on above: Performed By: #### 3 5199, 58688 ####[facility] [place] [address], [facility] Chloride [Moles/Vol] 101 mmol/L Normal 98-107 [facility] Comment on above: Performed By: #### 3 5199, 84916 ####[facility] [place] [address], [place] CO2 [Moles/Vol] 21 mmol/L Normal 21-31 The [facility] Comment on above: Performed By: #### 3 5199, 44965 ####[facility] [place] [address], [facility] Creatinine [Mass/Vol] 0.99 mg/dL Normal 0.60-1.20 The [facility] Comment on above: Performed By: #### 3 5199, 84459 ####[facility] [place] [address], [place] eGFR- non- 58 ml/min/1.73sq m Abnormal >60 The [facility] Comment on above: Performed By: #### 3 5199, 55051 ####[facility] [place] [address], [facility] GFR/1.73 sq M.predicted among blacks MDRD (S/P/Bld) [Vol rate/Area] mL/min/{1.73_m2} Normal >60 The [facility] Comment on above: Performed By: #### 3 5199, 69969 ####[facility] [place] [address], [facility] Glucose [Mass/Vol] 280 mg/dL High 70-[address] [facility] Comment on above: Performed By: #### 3 5199, 87608 ####[facility] [place] [address], [facility] Potassium [Moles/Vol] 4.1 mmol/L Normal 3.5-5.1 The [facility] Comment on above: Performed By: #### 3 5200, 82154 ####[facility]3000 [facility] [place] [address], [facility] Protein [Mass/Vol] 6.5 g/dL Normal 6.0-8.[address] [facility] Comment on above: Performed By: #### 3 5200, 90652 ####[facility]3000 [facility] [place] [address], [facility] Sodium [Moles/Vol] 134 mmol/L Low 136-[address] [facility] Comment on above: Performed By: #### 3 5200, 18561 ####[facility]3000 [facility] [place] [address], [facility] Urea nitrogen [Mass/Vol] 32 mg/dL High 7-25 The [facility] Comment on above: Performed By: #### 3 5200, 54173 ####[facility] [place] [address], [facility] CTA CHESTon 08-20-2021 CTA CHEST [facility] Department of Radiology [address] [place] [address] Patient Name: MEG GEORGES : 1965 Sex: F Age: Race: White Pt. Location: [facility] Patient Status: I Ordered Date: 08/19/2021 11:15:00 [...] embolism. Approved by:Olga Lidia Green08/20/2021 12:32 AM. ICharles,have reviewed the image(s) and agree with the findings in this report. Electronically signed: Charles Castillo. Transcribed by: [email or web address], User Resident: OLGA LIDIA WILLIS Electronically Signed by: CHARLES CASTILLO @ 08/20/2021 12:54 AM I personally read this/these film(s) with this resident Normal The [facility] Comment on above: Order Comment: R/O A telectasis CTA NECKon 08-20-2021 CTA NECK [facility] Department of Radiology [address] [place] [id number] Patient Name: MEG GEORGES : 1965 Sex: F Age: Race: White Pt. Location: [facility] Patient Status: I Ordered Date: 08/19/2021 11:15:00 [...] in the postoperative setting. Approved by:Olga Lidia Green08/20/2021 12:43 AM. I, Charles Castillo,have reviewed the image(s) and agree with the findings in this report. Electronically signed: Charles Castillo. Transcribed by: [email or web address], User Resident: OLGA LIDIA WILLIS Electronically Signed by: CHARLES CASTILLO @ 08/20/2021 12:51 AM I personally read this/these film(s) with this resident Normal The [facility] Comment on above: Order Comment: Bleed ing s/p recent tracheostomy Endoscopy Reporton 2 Endoscopy Report MR#: [id number] [facility] Pt. Name: Meg Georges Surgery Date: 08/20/2021 Room #: [facility] [id number] Date of : 1965 PROCEDURE NOTE ATTENDING: [...] Pozo M.D. Date Trans: 08/20/2021 05:17 P/ LAUREN_JN:[id number] cc: Johny Beckman M.D. [address] [facility]. Emergency Medicine [facility] [address] [place] ShieldsOCarrol [facility] W. Fernando yael [facility] [address] Normal The [facility] FIBRIN DEGRADATION PRODUCTon 08-20-2021 FSP 5 ug/ml Abnormal <5 ug/ml The [facility] Comment on above: Order Comment: No: D o not add to previous draw Performed By: #### 6 2594 #### [facility] [address] [place] [address], [facility] FIBRINOGENon 08-20-2021 FIBRINOGEN 527 mg/dL High 150-425 The [facility] Comment on above: Performed By: #### 6 2594 #### [facility] [address] [place] [address], [facility] FRESH FROZEN PLASMA 6 UNITSo n 08-20-2021 PRODUCT CODE 1 E2701 Normal The [facility] Comment on above: Performed By: #### 8 7006 ####[facility]3000 [facility] [place] [address], [facility] PRODUCT CODE 2 E2701 Normal The [facility] Comment on above: Performed By: #### 8 7006 ####[facility]3000 [facility] [place] [address], [facility] PRODUCT CODE 3 E2701 Normal The [facility] Comment on above: Performed By: #### 8 7006 ####[facility]3000 [facility] [place] [address], [facility] PRODUCT CODE 4 E7750 Normal The [facility] Comment on above: Performed By: #### 8 7006 ####[facility]3000 [facility] [place] [address], [facility] PRODUCT CODE 5 E2701 Normal The [facility] Comment on above: Performed By: #### 8 7006 ####[facility]3000 [facility] [place] [address], [facility] PRODUCT CODE 6 E2701 Normal The [facility] Comment on above: Performed By: #### 8 7006 ####[facility]3000 [facility] [place] [address], [facility] PRODUCT STATUS 1 PT Normal The [facility] Comment on above: Result Comment: Resu lt changed by IF on 08/20/2021 13:26. The previous value was XM. Result changed by IF on 08/21/2021 00:30. The previous value was IS. Performed By: #### 8 7006 ####[facility]3000 [facility].[address] PRODUCT STATUS 2 RE Normal The [facility] Comment on above: Result Comment: Resu lt changed by IF on 08/20/2021 05:09. The previous value was XM. Result changed by IF on 08/20/2021 05:16. The previous value was XX. Performed By: #### 8 7006 ####[facility]3000 [facility] [place] [address], [facility] PRODUCT STATUS 3 RE Normal The [facility] Comment on above: Result Comment: Resu lt changed by IF on 08/20/2021 05:24. The previous value was XM. Result changed by IF on 08/20/2021 05:48. The previous value was XX. Performed By: #### 8 7006 ####[place] [address] [facility].[address] PRODUCT STATUS 4 RE Normal The [facility] Comment on above: Result Comment: Resu lt changed by IF on 08/22/2021 16:50. The previous value was XM. Result changed by IF on 08/25/2021 01:00. The previous value was XX. Performed By: #### 8 7006 ####[address] [place] [address], [facility] PRODUCT STATUS 5 RE Normal The [facility] Comment on above: Result Comment: Resu lt changed by IF on 08/20/2021 05:24. The previous value was XM. Result changed by IF on 08/20/2021 05:48. The previous value was XX. Performed By: #### 8 7006 ####[place] [address] [facility] [place] [address], [facility] PRODUCT STATUS 6 RE Normal The [facility] Comment on above: Result Comment: Resu lt changed by IF on 08/20/2021 05:24. The previous value was XM. Result changed by IF on 08/20/2021 05:48. The previous value was XX. Performed By: #### 8 7006 ####[facility] [place] [address], [facility] UNIT ABO 1 A Normal [facility] Comment on above: Performed By: #### 8 7006 ####[facility] [place] [address], [facility] Performed By: #### 8 9001 ####[facility] [place] [address], [facility] UNIT ABO 2 A Normal [facility] Comment on above: Performed By: #### 8 7005 ####[facility] [place] [address], [facility] UNIT ABO 3 A Normal [facility] Comment on above: Performed By: #### 8 7005 ####[facility] [place] [address], [facility] UNIT ABO 4 A Normal [facility] Comment on above: Performed By: #### 8 7005 ####[facility] [place] [address], [place] UNIT ABO 5 A Normal [facility] Comment on above: Performed By: #### 8 7005 ####[facility] [place] [address], [place] UNIT ABO 6 A Normal [facility] Comment on above: Performed By: #### 8 7005 ####[facility] [place] [address], [place] UNIT ID 1 [id number] Normal The [facility] Comment on above: Performed By: #### 8 7005 ####[facility] [place] [address], [facility] UNIT ID 2 [id number] Normal The [facility] Comment on above: Performed By: #### 8 7006 ####[facility] [place] [address], [facility] UNIT ID 3 [id number] Normal The [facility] Comment on above: Performed By: #### 8 7006 ####[facility] [place] [address], [facility] UNIT ID 4 [id number] Normal The [facility] Comment on above: Performed By: #### 8 7006 ####[facility] [place] [address], [facility] UNIT ID 5 [id number] Normal The [facility] Comment on above: Performed By: #### 8 7006 ####[facility] [place] [address], [facility] UNIT ID 6 [id number] Normal The [facility] Comment on above: Performed By: #### 8 7006 ####[facility] [facility] [place] [address], [facility] UNIT RH 1 Positive Normal The [facility] Comment on above: Performed By: #### 8 7006 ####[facility] [place] [address], [facility] Performed By: #### 8 9001 ####[facility] [place] [address], [facility] UNIT RH 2 Positive Normal The [facility] Comment on above: Performed By: #### 8 7005 ####[facility] [place] [address], [facility] UNIT RH 3 Positive Normal The [facility] Comment on above: Performed By: #### 8 7006 ####[facility] [place] [address], [facility] UNIT RH 4 Positive Normal The [facility] Comment on above: Performed By: #### 8 7006 ####[facility] [place] [address], [place] UNIT RH 5 Positive Normal The [facility] Comment on above: Performed By: #### 8 7006 ####[facility] [place] [address], [place] UNIT RH 6 Positive Normal The [facility] Comment on above: Performed By: #### 8 7006 ####[facility] [place] [address], [place] LACTATE BLOODon 08-20-2021 Lactate [Moles/Vol] 1.3 mmol/L Normal .5-2.2 [facility] Comment on above: Performed By: #### 6 2594 #### [facility] [address] [place] [address], [facility] LIVER BATTERYon 08-20-2021 Albumin [Mass/Vol] 1.8 g/dL Low 3.5-5.[address] [facility] Comment on above: Order Comment: Check NG Tube Position Performed By: #### 1 0070, 29644, 40453, 04089 ####[facility] [place] [address], [facility] ALKALINE PHOSPH 171 IU/L High 34-104 [facility] Comment on above: Order Comment: Check NG Tube Position Performed By: #### 1 0070, 40117, 22993, 27848 ####[facility] [place] [address], [place] ALT [Catalytic activity/Vol] 10 U/L Normal 7-52 The [facility] Comment on above: Order Comment: Check NG Tube Position Performed By: #### 1 0070, 77051, 20383, 62332 ####[facility] AST [Catalytic activity/Vol] 12 U/L Low 13-39 The [facility] Comment on above: Order Comment: Check NG Tube Position Performed By: #### 1 0070, 45537, 63518, 13830 ####[facility] Bilirubin [Mass/Vol] 0.4 mg/dL Normal 0.3-1.0 The [facility] Comment on above: Order Comment: Check NG Tube Position Performed By: #### 1 0070, 81456, 49130, 46045 ####[facility]3000 [facility].[address] Bilirubin.direct [Mass/Vol] 0.1 mg/dL Normal 0.0-0.2 The [facility] Comment on above: Order Comment: Check NG Tube Position Performed By: #### 1 0070, 21564, 31572, 90815 ####[facility] [facility].[address] Protein [Mass/Vol] 4.6 g/dL Low 6.0-8.[address] [facility] Comment on above: Order Comment: Check NG Tube Position Performed By: #### 1 0070, 96713, 71047, 25080 ####[facility] [place] [address], [facility] MAGNESIUM BLOODon 08-20-2021 Magnesium [Mass/Vol] 1.4 mg/dL Low 1.9-2.7 The [facility] Comment on above: Order Comment: Check NG Tube Position Performed By: #### 1 0070, 10550, 76700, 35375 ####[facility] [place] [address], [facility] OSMOLALITY BLOODon Osmolality [Osmolality] 309 mosm/kg High 285-305 [facility] Comment on above: Order Comment: No: D o not add to previous draw Performed By: #### 6 2594 #### [facility] 3000 [facility]. [address] PHOSPHORUS BLOODon 2 Phosphate [Mass/Vol] 2.4 mg/dL Low 2.5-5.0 [facility] Comment on above: Order Comment: Check NG Tube Position Performed By: #### 1 0070, 85206, 60403, 26308 ####[facility] PLATELET APHERESIS 1 UNITon 08-20-2021 PRODUCT CODE 1 E8341 Normal The [facility] Comment on above: Performed By: #### 8 9001 ####[facility] UNIT ID 1 [id number] Normal The [facility] Comment on above: Performed By: #### 8 9001 ####[facility] PRODUCT STATUS 1 RE Normal The [facility] Comment on above: Result Comment: Resu lt changed by IF on 08/21/2021 01:00. The previous value was XM. Performed By: #### 8 9001 ####[facility] Result Comment: Resu lt changed by IF on 08/21/2021 08:54. The previous value was XM. Result changed by IF on 08/21/2021 18:31. The previous value was XX. Performed By: #### 8 6006 ####[facility] POC GLUCOSE LABon 08-20-2021 Glucose [Mass/Vol] 118 mg/dL High 70-[address] [facility] Comment on above: Performed By: #### 8 5499 ####[facility]3000 [facility] [place] [address], [facility] Glucose [Mass/Vol] 142 mg/dL High 70-[address] [facility] Comment on above: Performed By: #### 8 5499 ####[facility]3000 [facility].[place] [id number], [facility] Glucose [Mass/Vol] 160 mg/dL High 70-[address] [facility] Comment on above: Performed By: #### 8 5499 ####[facility]3000 [facility].[place] [id number], [facility] Glucose [Mass/Vol] 177 mg/dL High 70-[address] [facility] Comment on above: Performed By: #### 8 5499 ####[facility] POC SARS COV2 ANTIGEN NEGATI VEon 08-20-2021 POC SARS COV2 ANTIGEN NEG Negative Normal NEGATIVE The [facility] Comment on above: Result Comment: Nega tive [...] from SARS-CoV-2 in direct nasopharyngeal swab (SUPERVISOR IRRIGATION) specimens from individuals who are suspected of [...] Accreditation. Performed By: #### 3 2044 #### [address] PORTABLE CHEST 1 VIEWon PORTABLE CHEST 1 VIEW [facility] Department of Radiology [address] [place] [id number] Patient Name: MEG GEORGES : 1965 Sex: F Age: Race: White Pt. Location: [place] [address] Patient Status: I Ordered Date: 08/20/2021 5:20:00 [...] FINDINGS: Enteric tube tip outside the inferior [id number]-mc-thqv, presumably within the stomach. Stable tracheostomy cannula. Stable cardiomediastinal silhouette. No new focal consolidation, significant effusion, or pneumothorax. Right upper extremity PICC, its tip at the mid SVC. IMPRESSION: Enteric tube tip likely within the stomach, outside the inferior ydfkc-aj-[id number] however Electronically signed: KIKE DICKSON. Transcribed by: [email or web address], User Resident: Electronically Signed by: KIKE DICKSON @ 08/20/2021 07:46 PM Normal The [facility] Comment on above: Order Comment: Check NG Tube Position PORTABLE CHEST 1 VIEW [facility] Department of Radiology [address] [place] [id number] Patient Name: MEG GEORGES : 1965 Sex: F Age: Race: White Pt. Location: [place] [address] Patient Status: I Ordered Date: 08/20/2021 7:50:00 [...] indeterminate. Electronically signed: Blossom Gongora. Transcribed by: [email or web address], User Resident: BLOSSOM GONGORA Electronically Signed by: BLOSSOM GONGORA @ 08/20/2021 09:10 AM I personally read this/these film(s) with this resident Normal The [facility] Comment on above: Order Comment: evalu ate for Atelectasis PORTABLE CHEST 1 VIEW [facility] Department of Radiology [address] [place] [address] Patient Name: MEG GEORGES : 1965 Sex: F Age: Race: White Pt. Location: [facility] Patient Status: E Ordered Date: 08/19/2021 10:15:00 [...] abnormality. Electronically signed: Darci Monahan. Transcribed by: [email or web address], User Resident: Electronically Signed by: DARCI MONAHAN @ 08/19/2021 10:41 PM Normal The [facility] Comment on above: Order Comment: Check NG Tube Position PROTHROMBIN TIMEon 2 INR Coag (PPP) [Relative time] 1.70 {INR} High 0.91-1.16 The [facility] Comment [...] CHEST 1995;108:231S-246S. Performed By: #### 5 6101 ####[facility]3000 [facility] [place] [address], [facility] PT Coag (PPP) [Time] 19.7 s High 12.3-14.8 [facility] Comment on above: Order Comment: Check NG Tube Position Result Comment: ALL RESULTS MUST BE INTERPRETED WITH RESPECT TO BLOOD DRAWING ARTIFACT OR DILUTION ERROR OF ANTICOAGULANT AT THE TIME OF SAMPLING. Performed By: #### 5 6101 ####[facility] [place] [address], [facility] INR Coag (PPP) [Relative time] 1.47 {INR} High 0.91-1.16 The [facility] Comment on above: Result Comment: ACCC P [...] CHEST 1995;108:231S-246S. Performed By: #### 5 6788, 84[address], [address], 10[address] ####[facility]3000 [facility].[address] PT Coag (PPP) [Time] 17.7 s High 12.3-14.8 The [facility] Comment on above: Result Comment: ALL RESULTS MUST BE INTERPRETED WITH RESPECT TO BLOOD DRAWING ARTIFACT OR DILUTION ERROR OF ANTICOAGULANT AT THE TIME OF SAMPLING. Performed By: #### 5 6788, 91036, 18536, 45776 ####[facility]3000 [facility] [place] [address], [facility] RBC'S 6 UNITSon 08-20-2021 CROSSMATCH INTERP 1 COMP Normal The [facility] Comment on above: Performed By: #### 8 6006 ####[facility] [place] [address], [facility] CROSSMATCH INTERP 2 COMP Normal The [facility] Comment on above: Performed By: #### 8 6006 ####[facility] [place] [address], [place] CROSSMATCH INTERP 3 COMP Normal [facility] Comment on above: Performed By: #### 8 6006 ####[facility] [place] [address], [place] CROSSMATCH INTERP 4 COMP Normal The [facility] Comment on above: Performed By: #### 8 6006 ####[facility] [place] [address], [place] CROSSMATCH INTERP 5 COMP Normal [facility] Comment on above: Performed By: #### 8 6006 ####[facility] [place] [address], [place] CROSSMATCH INTERP 6 COMP Normal [facility] Comment on above: Performed By: #### 8 6006 ####[facility] [place] [address], [place] PRODUCT CODE 1 E0336 Normal The [facility] Comment on above: Performed By: #### 8 6006 ####[facility] [place] [address], [place] PRODUCT CODE 2 E0336 Normal The [facility] Comment on above: Performed By: #### 8 6006 ####[facility] [place] [address], [place] PRODUCT CODE 3 E0336 Normal The [facility] Comment on above: Performed By: #### 8 6006 ####[facility] [place] [address], [place] PRODUCT CODE 4 E0336 Normal The [facility] Comment on above: Performed By: #### 8 6006 ####[facility]3000 [facility].[address] PRODUCT CODE 5 E0336 Normal The [facility] Comment on above: Performed By: #### 8 6006 ####[address] PRODUCT CODE 6 E0336 Normal The [facility] Comment on above: Performed By: #### 8 6006 ####[place] [id number] [facility].[address] PRODUCT STATUS 2 RE Normal The [facility] Comment on above: Result Comment: Resu lt changed by IF on 08/20/2021 05:40. The previous value was XM. Result changed by IF on 08/20/2021 05:48. The previous value was XX. Performed By: #### 8 6006 ####[address] PRODUCT STATUS 3 RE Normal The [facility] Comment on above: Result Comment: Resu lt changed by IF on 08/22/2021 01:00. The previous value was XM. Performed By: #### 8 6006 ####[address] PRODUCT STATUS 4 RE Normal The [facility] Comment on above: Result Comment: Resu lt changed by IF on 08/20/2021 05:40. The previous value was XM. Result changed by IF on 08/20/2021 05:48. The previous value was XX. Performed By: #### 8 6006 ####[address] PRODUCT STATUS 5 RE Normal The [facility] Comment on above: Result Comment: Resu lt changed by IF on 08/22/2021 01:00. The previous value was XM. Performed By: #### 8 6006 ####[address] [id number], [facility] PRODUCT STATUS 6 RE Normal The [facility] Comment on above: Result Comment: Resu lt changed by IF on 08/21/2021 08:54. The previous value was XM. Result changed by IF on 08/22/2021 01:00. The previous value was XX. Performed By: #### 8 6006 ####[facility] [place] [address], [facility] UNIT ABO 1 A Normal [facility] Comment on above: Performed By: #### 8 6006 ####[facility] [place] [address], [facility] UNIT ABO 2 A Normal [facility] Comment on above: Performed By: #### 8 6006 ####[facility] [place] [address], [facility] UNIT ABO 3 A Normal [facility] Comment on above: Performed By: #### 8 6006 ####[facility] [place] [address], [place] UNIT ABO 4 A Normal [facility] Comment on above: Performed By: #### 8 6006 ####[facility] [place] [address], [place] UNIT ABO 5 A Normal [facility] Comment on above: Performed By: #### 8 6006 ####[facility] [place] [address], [place] UNIT ABO 6 A Normal [facility] Comment on above: Performed By: #### 8 6006 ####[facility] [place] [address], [place] UNIT ID 1 [id number] Normal The [facility] Comment on above: Performed By: #### 8 6006 ####[facility] [place] [address], [facility] UNIT ID 2 [id number] Normal The [facility] Comment on above: Performed By: #### 8 6006 ####[facility] [place] [address], [facility] UNIT ID 3 [id number] Normal The [facility] Comment on above: Performed By: #### 8 6006 ####[facility] [place] [address], [facility] UNIT ID 4 [id number] Normal The [facility] Comment on above: Performed By: #### 8 6006 ####[facility] [place] [address], [facility] UNIT ID 5 [id number] Normal The [facility] Comment on above: Performed By: #### 8 6006 ####[facility]3000 [facility] [place] [address], [facility] UNIT ID 6 [id number] Normal The [facility] Comment on above: Performed By: #### 8 6006 ####[facility] [facility] [place] [address], [facility] UNIT RH 1 Positive Normal The [facility] Comment on above: Performed By: #### 8 6006 ####[facility] [place] [address], [facility] UNIT RH 2 Positive Normal The [facility] Comment on above: Performed By: #### 8 6006 ####[facility] [place] [address], [facility] UNIT RH 3 Positive Normal The [facility] Comment on above: Performed By: #### 8 6006 ####[facility] [place] [address], [facility] UNIT RH 4 Positive Normal [facility] Comment on above: Performed By: #### 8 6006 ####[facility] [place] [address], [facility] UNIT RH 5 Positive Normal [facility] Comment on above: Performed By: #### 8 6006 ####[facility] [place] [address], [facility] UNIT RH 6 Positive Normal [facility] Comment on above: Performed By: #### 8 6006 ####[facility] [place] [address], [facility] TRIGLYCERIDES BLOODon 2021 Triglyceride [Mass/Vol] 147 mg/dL Normal 40-149 T he [facility] Comment on above: Order Comment: No: D o not add to previous draw Result Comment: TRIG LYCERIDE REFERENCE RANGE: 20 YEARS AND OLDER CARDIOVASCULAR RISK LESS THAN 150 mg/dl LOW RISK 150 TO 199 mg/dl BORDERLINE RISK 200 mg/dl AND GREATER HIGH RISK Performed By: #### 6 2594 #### [facility] [address] [place] [address], [facility] TROPONIN-Ion 08-20-2021 Troponin I.cardiac [Mass/Vol] 0.03 ng/mL Normal 0.00-0.04 [facility] Comment on above: Result Comment: REFE RENCE RANGES: 0.00 - 0.04 ng/ml NORMAL 0.05 - 0.50 ng/ml INDETERMINATE > 0.50 ng/ml CONSISTENT WITH AN M.I. Performed By: #### 3 5200, 93458 ####[facility] [place] [address], [facility] TYPE AND CROSSMATCHon 2021 ABO INTERPRETATION A Normal [facility] Comment on above: Performed By: #### 6 2594 #### [facility] [address] [place] [address], [place] RH INTERPRETATION Positive Normal The [facility] Comment on above: Performed By: #### 6 2594 #### [facility] [address] [place] [address], [facility] rbc emergency releaseon 07-0 CROSSMATCH INTERP 1 COMP Normal The [facility] Comment on above: Performed By: #### R BCER ####[facility] [place] [address], [facility] CROSSMATCH INTERP 2 COMP Normal The [facility] Comment on above: Result Comment: This result added by IF on 08/20/2021 02:44. Performed By: #### R BCER ####[facility] [place] [address], [facility] CROSSMATCH INTERP 3 COMP Normal The [facility] Comment on above: Result Comment: This result added by IF on 08/20/2021 02:44. Performed By: #### R BCER ####[facility] [place] [address], [facility] PRODUCT CODE 1 E0685 Normal The [facility] Comment on above: Performed By: #### R BCER ####[facility] [place] [address], [facility] PRODUCT CODE 2 E0336 Normal The [facility] Comment on above: Performed By: #### R BCER ####[facility] [place] [address], [facility] PRODUCT CODE 3 E0685 Normal The [facility] Comment on above: Performed By: #### R BCER ####[facility] [place] [address], [facility] PRODUCT STATUS 1 PT Normal The [facility] Comment on above: Result Comment: Resu lt changed by IF on 08/20/2021 02:42. The previous value was EI. Result changed by IF on 08/21/2021 00:30. The previous value was PI. Performed By: #### R BCER ####[facility] [place] [address], [facility] PRODUCT STATUS 2 PT Normal The [facility] Comment on above: Result Comment: Resu lt changed by IF on 08/20/2021 02:44. The previous value was EI. Result changed by IF on 08/21/2021 00:30. The previous value was PI. Performed By: #### R BCER ####[facility] [facility] [place] [address], [facility] PRODUCT STATUS 3 PT Normal The [facility] Comment on above: Result Comment: Resu lt changed by IF on 08/20/2021 02:44. The previous value was EI. Result changed by IF on 08/21/2021 00:30. The previous value was PI. Performed By: #### R BCER ####[facility] [facility] [place] [address], [facility] UNIT ABO 1 O Normal [facility] Comment on above: Performed By: #### R BCER ####[facility]3000 [facility] [place] [address], [facility] UNIT ABO 2 O Normal The [facility] Comment on above: Performed By: #### R BCER ####[facility] [facility] [place] [address], [facility] UNIT ABO 3 O Normal The [facility] Comment on above: Performed By: #### R BCER ####[facility] [facility] [place] [address], [facility] UNIT ID 1 [id number] Normal The [facility] Comment on above: Performed By: #### R BCER ####[facility], [place] [address] UNIT ID 2 [id number] Normal The [facility] Comment on above: Performed By: #### R BCER ####[facility]3000 [facility].[address] UNIT ID 3 [id number] Normal The [facility] Comment on above: Performed By: #### R BCER ####[facility]3000 [facility].[address] UNIT RH 1 Negative Normal The [facility] Comment on above: Performed By: #### R BCER ####[facility]3000 [facility].[address] UNIT RH 2 Negative Normal [facility] Comment on above: Performed By: #### R BCER ####[facility] [facility].[address] UNIT RH 3 Negative Normal [facility] Comment on above: Performed By: #### R BCER ####[facility]3000 [facility].[address] BRAIN WO CONTRASTon 08-15 CT BRAIN WO CONTRAST [facility] Department of Radiology [address] [place] [address] Patient Name: MEG GEORGES : 1965 Sex: F Age: Race: White Pt. Location: [facility] Patient Status: Ordered Date: 08/15/2021 12:05:00 PM Completed Date: 08/15/2021 04:06 PM Requesting Provider: GANGA SAVAGE Attending Provider: Report Copy To: Signs & Symptoms: R/O Bleed History: Order in [facility] [phone] Trach/vent Comments: Exam: CT BRAIN WO CONTRAST [...] findings. Electronically signed: Angel Beal. Transcribed by: [id number], User Resident: Electronically Signed by: ANGEL BEAL @ 08/15/2021 04:12 PM Normal [facility] Basic Metabolic Panel w/ Ref rafael to MGon 08-10-2021 Anion gap [Moles/Vol] 11 mmol/L 9 - 17 mmol/L [facility] Calcium [Mass/Vol] 8.5 mg/dL Low 8.6 - 10. 4 mg/dL [facility] [employer] Chloride [Moles/Vol] 107 mmol/L 98 - 10 7 mmol/L [facility] [employer] CO2 [Moles/Vol] 24 mmol/L 20 - 31 mmol/L [facility] Creatinine [Mass/Vol] 0.54 mg/dL 0.50 - 0.90 mg/dL [facility] [employer] GFR >60 >60 mL/min [facility] GFR Non- >60 >60 mL/min [facility] GFR/1.73 sq M.predicted MDRD (S/P/Bld) [Vol rate/Area] [facility] Glucose [Mass/Vol] 150 mg/dL High 70 - 99 mg/dL [facility] Interpretation and review of laboratory results Abnormal [facility] Potassium [Moles/Vol] 3.3 mmol/L Low 3.7 - 5.3 mmol/L [facility] Sodium [Moles/Vol] 142 mmol/L 135 - 144 mmol/L [facility] Urea nitrogen (BldV) [Mass/Vol] 11 mg/dL 6 - 20 mg/dL [facility] CBC with Auto Differentialon 08-10-2021 Absolute Eos # 0.45 High [place] [facility] Absolute Immature Granulocyte <0.03 [facility] Absolute Lymph # 2.27 [facility] Absolute [place] # 0.58 [facility] Basophils (Bld) [#/Vol] 0.05 10*3/uL [facility] Basophils/100 WBC (Bld) 1 % 0 - 2 % B [facility] Eosinophils/100 WBC (Bld) 5 % High 1 - 4 % [facility] Hematocrit (Bld) [Volume fraction] 28.0 % Low 36.3 - 47.1 % [facility] Hemoglobin (Bld) [Mass/Vol] 8.9 g/dL Low 11.9 - 15.1 g/dL [facility] Immature granulocytes/100 WBC (Bld) 0 % 0 [facility] Interpretation and review of laboratory results Abnormal [facility] Lymphocytes/100 WBC (Bld) 25 % 24 - 43 % [facility] MCH (RBC) [Entitic mass] 31.3 pg 25.2 - 33.5 pg [facility] MCHC (RBC) [Mass/Vol] 31.8 g/dL 28.4 - 34.8 g/dL [facility] MCV (RBC) [Entitic vol] 98.6 fL 82.6 - 102.9 fL [facility] Monocytes/100 WBC (Bld) 7 % 3 - 12 % B ON [facility] NRBC Automated 0.0 0.0 per 100 WBC [facility] Platelet distribution width (Bld) [Ratio] 17.5 % High 11.8 - 14.4 % [facility] Platelet mean volume (Bld) [Entitic vol] 8.8 fL 8.1 - 13.5 fL [facility] Platelets (Bld) [#/Vol] 576 10*3/uL High [facility] RBC (Bld) [#/Vol] 2.84 10*6/uL Low 3.95 - 5.1 1 m/uL [facility] RBC (Bld) [#/Vol] ANISOCYTOSIS PRESENT [facility] Seg Neutrophils 62 % 36 - 65 % [facility] Segs Absolute 5.62 [facility] WBC (Bld) [#/Vol] 9.0 10*3/uL [facility] Magnesiumon 08-10-2021 Magnesium [Mass/Vol] 1.8 mg/dL 1.6 - 2 .6 mg/dL [facility] POC Glucose Fingerstickon Glucose [Mass/Vol] 188 mg/dL High 65 - 105 mg/dL [facility] Interpretation and review of laboratory results Abnormal [facility] Glucose [Mass/Vol] 218 mg/dL High 65 - 105 mg/dL [facility] Interpretation and review of laboratory results Abnormal [facility] Glucose [Mass/Vol] 133 mg/dL High 65 - 105 mg/dL [facility] Interpretation and review of laboratory results Abnormal [facility] POC Glucose Fingerstickon Glucose [Mass/Vol] 204 mg/dL High 65 - 105 mg/dL [facility] Interpretation and review of laboratory results Abnormal [facility] Glucose [Mass/Vol] 184 mg/dL High 65 - 105 mg/dL [facility] Interpretation and review of laboratory results Abnormal [facility] Glucose [Mass/Vol] 202 mg/dL High 65 - 105 mg/dL [facility] Interpretation and review of laboratory results Abnormal [facility] Glucose [Mass/Vol] 126 mg/dL High 65 - 105 mg/dL [facility] Interpretation and review of laboratory results Abnormal [facility] Basic Metabolic Panel w/ Ref rafael to MGon 08-08-2021 Anion gap [Moles/Vol] 11 mmol/L 9 - 17 mmol/L [facility] Calcium [Mass/Vol] 7.9 mg/dL Low 8.6 - 10. 4 mg/dL [facility] Chloride [Moles/Vol] 108 mmol/L High 98 - 10 7 mmol/L [facility] CO2 [Moles/Vol] 22 mmol/L 20 - 31 mmol/L [facility] Creatinine [Mass/Vol] 0.59 mg/dL 0.50 - 0.90 mg/dL [facility] GFR >60 >60 mL/min [facility] GFR Non- >60 >60 mL/min [facility] GFR/1.73 sq M.predicted MDRD (S/P/Bld) [Vol rate/Area] [facility] Glucose [Mass/Vol] 193 mg/dL High 70 - 99 mg/dL [facility] Interpretation and review of laboratory results Abnormal [facility] Potassium [Moles/Vol] 3.8 mmol/L 3.7 - 5.3 mmol/L [facility] Sodium [Moles/Vol] 141 mmol/L 135 - 144 mmol/L [facility] Urea nitrogen (BldV) [Mass/Vol] 11 mg/dL 6 - 20 mg/dL [facility] CBC with Auto Differentialon 08-08-2021 Absolute Eos # 0.29 [place] [facility] Absolute Immature Granulocyte 0.04 [facility] Absolute Lymph # 2.17 [facility] Absolute [place] # 0.64 [facility] Basophils (Bld) [#/Vol] 0.04 10*3/uL [facility] Basophils/100 WBC (Bld) 0 % 0 - 2 % [facility] Eosinophils/100 WBC (Bld) 3 % 1 - 4 % [facility] Hematocrit (Bld) [Volume fraction] 24.6 % Low 36.3 - 47.1 % [facility] Hemoglobin (Bld) [Mass/Vol] 8.0 g/dL Low 11.9 - 15.1 g/dL [facility] Immature granulocytes/100 WBC (Bld) 0 % 0 [facility] Interpretation and review of laboratory results Abnormal [facility] Lymphocytes/100 WBC (Bld) 23 % Low 24 - 43 % [facility] MCH (RBC) [Entitic mass] 31.7 pg 25.2 - 33.5 pg [facility] MCHC (RBC) [Mass/Vol] 32.5 g/dL 28.4 - 34.8 g/dL [facility] MCV (RBC) [Entitic vol] 97.6 fL 82.6 - 102.9 fL [facility] Monocytes/100 WBC (Bld) 7 % 3 - 12 % [facility] NRBC Automated 0.0 0.0 per 100 WBC [facility] Platelet distribution width (Bld) [Ratio] 17.8 % High 11.8 - 14.4 % [facility] Platelet mean volume (Bld) [Entitic vol] 8.9 fL 8.1 - 13.5 fL [facility] Platelets (Bld) [#/Vol] 514 10*3/uL High [facility] RBC (Bld) [#/Vol] 2.52 10*6/uL Low 3.95 - 5.1 1 m/uL [facility] RBC (Bld) [#/Vol] ANISOCYTOSIS PRESENT [facility] Seg Neutrophils 67 % High 36 - 65 % [facility] Segs Absolute 6.36 [facility] WBC (Bld) [#/Vol] 9.5 10*3/uL [facility] EKG 12 LeadOrdered By: Armando Galloway on 08-08-2021 Atrial Rate 90 BPM [employer] Work Phone: P [place] 43 degrees [employer] Work Phone: P-R Interval 122 ms [employer] Work Phone: Q-T Interval 374 ms [employer] Work Phone: QRS Duration 78 ms [employer] Work Phone: QTc Calculation (Bazett) 457 ms [employer] Work Phone: R [place] -4 degrees [employer] Work Phone: T [place] 51 degrees [employer] Work Phone: Ventricular Rate 90 BPM [employer] Work Phone: [facility] Work Phone: EKG 12 Leadon 08-08-2021 MHPN STV MUSE [facility] Work Phone: POC Glucose Fingerstickon Glucose [Mass/Vol] 147 mg/dL High 65 - 105 mg/dL [facility] Interpretation and review of laboratory results Abnormal [facility] Glucose [Mass/Vol] 157 mg/dL High 65 - 105 mg/dL [facility] Interpretation and review of laboratory results Abnormal [employer] [facility] [employer] [facility] Glucose [Mass/Vol] 207 mg/dL High 65 - 105 mg/dL [facility] [employer] Interpretation and review of laboratory results Abnormal [facility] Glucose [Mass/Vol] 214 mg/dL High 65 - 105 mg/dL [facility] Interpretation and review of laboratory results Abnormal [facility] Glucose Fingerstickon Glucose [Mass/Vol] 206 mg/dL High 65 - 105 mg/dL [facility] Interpretation and review of laboratory results Abnormal [facility] Glucose [Mass/Vol] 202 mg/dL High 65 - 105 mg/dL [facility] Interpretation and review of laboratory results Abnormal [facility] Glucose [Mass/Vol] 179 mg/dL High 65 - 105 mg/dL [facility] Interpretation and review of laboratory results Abnormal [facility] Glucose [Mass/Vol] 144 mg/dL High 65 - 105 mg/dL [facility] Interpretation and review of laboratory results Abnormal [facility] Glucose [Mass/Vol] 154 mg/dL High 65 - 105 mg/dL [facility] Interpretation and review of laboratory results Abnormal [facility] Glucose [Mass/Vol] 150 mg/dL High 65 - 105 mg/dL [facility] Interpretation and review of laboratory results Abnormal [facility] Glucose [Mass/Vol] 153 mg/dL High 65 - 105 mg/dL [facility] Interpretation and review of laboratory results Abnormal [facility] TSHon 08-07-2021 Interpretation and review of laboratory results Abnormal [facility] TSH Qn 7.90 m[IU]/L High [facility] XR CERVICAL SPINE FLEXION AN D EXTENSIONon 08-07-2021 MHPN RIS CONSOLIDATED PN RIS CONSOLIDATED [facility] Work Phone: Radiology Study observation (narrative) [facility] Work Phone: XR CERVICAL SPINE FLEXION AN D EXTENSIONOrdered By: Paramjit Saenz on 08-07-2021 [facility] Work Phone: Basic Metabolic Panel w/ Ref rafael to MGon 08-06-2021 Anion gap [Moles/Vol] 11 mmol/L 9 - 17 mmol/L [facility] Calcium [Mass/Vol] 8.5 mg/dL Low 8.6 - 10. 4 mg/dL [facility] Chloride [Moles/Vol] 109 mmol/L High 98 - 10 7 mmol/L [facility] CO2 [Moles/Vol] 23 mmol/L 20 - 31 mmol/L [facility] Creatinine [Mass/Vol] 0.55 mg/dL 0.50 - 0.90 mg/dL [facility] GFR >60 >60 mL/min [facility] GFR Non- >60 >60 mL/min [facility] GFR/1.73 sq M.predicted MDRD (S/P/Bld) [Vol rate/Area] [facility] Glucose [Mass/Vol] 48 mg/dL Low 70 - 99 mg/dL [facility] Interpretation and review of laboratory results Abnormal [facility] Potassium [Moles/Vol] 3.6 mmol/L Low 3.7 - 5.3 mmol/L [facility] Sodium [Moles/Vol] 143 mmol/L 135 - 144 mmol/L [facility] Urea nitrogen (BldV) [Mass/Vol] 11 mg/dL 6 - 20 mg/dL [facility] CBC with Auto Differentialon 08-06-2021 Absolute Eos # 0.28 [place] [facility] Absolute Immature Granulocyte 0.07 [facility] Absolute Lymph # 2.04 [facility] Absolute [place] # 0.61 [facility] Basophils (Bld) [#/Vol] 0.04 10*3/uL [facility] Basophils/100 WBC (Bld) 0 % 0 - 2 % [facility] Eosinophils/100 WBC (Bld) 2 % 1 - 4 % [facility] Hematocrit (Bld) [Volume fraction] 26.3 % Low 36.3 - 47.1 % [facility] Hemoglobin (Bld) [Mass/Vol] 8.6 g/dL Low 11.9 - 15.1 g/dL [facility] Immature granulocytes/100 WBC (Bld) 1 % High 0 [facility] Interpretation and review of laboratory results Abnormal [facility] Lymphocytes/100 WBC (Bld) 17 % Low 24 - 43 % [facility] MCH (RBC) [Entitic mass] 31.9 pg 25.2 - 33.5 pg [facility] MCHC (RBC) [Mass/Vol] 32.7 g/dL 28.4 - 34.8 g/dL [facility] MCV (RBC) [Entitic vol] 97.4 fL 82.6 - 102.9 fL [facility] Monocytes/100 WBC (Bld) 5 % 3 - 12 % [facility] NRBC Automated 0.0 0.0 per 100 WBC [facility] Platelet distribution width (Bld) [Ratio] 18.0 % High 11.8 - 14.4 % [facility] Platelet mean volume (Bld) [Entitic vol] 8.4 fL 8.1 - 13.5 fL [facility] Platelets (Bld) [#/Vol] 565 10*3/uL High [facility] RBC (Bld) [#/Vol] 2.70 10*6/uL Low 3.95 - 5.1 1 m/uL [facility] RBC (Bld) [#/Vol] ANISOCYTOSIS PRESENT [facility] Seg Neutrophils 75 % High 36 - 65 % [facility] Segs Absolute 9.28 High [facility] WBC (Bld) [#/Vol] 12.3 10*3/uL High [facility] No Panel Informationon 08-06 Interpretation and review of laboratory results Abnormal [facility] POC Glucose Fingerstickon Glucose [Mass/Vol] 158 mg/dL High 65 - 105 mg/dL [facility] Interpretation and review of laboratory results Abnormal [facility] Glucose [Mass/Vol] 125 mg/dL High 65 - 105 mg/dL [facility] Interpretation and review of laboratory results Abnormal [facility] Glucose [Mass/Vol] 128 mg/dL High 65 - 105 mg/dL [facility] Interpretation and review of laboratory results Abnormal [facility] Glucose [Mass/Vol] 106 mg/dL High 65 - 105 mg/dL [facility] Interpretation and review of laboratory results Abnormal [facility] Glucose [Mass/Vol] 109 mg/dL High 65 - 105 mg/dL [facility] Interpretation and review of laboratory results Abnormal [facility] Glucose [Mass/Vol] 39 mg/dL Critically low 65 - 10 5 mg/dL [facility] Interpretation and review of laboratory results Abnormal [facility] Glucose [Mass/Vol] 43 mg/dL Low 65 - 105 mg/dL [facility] Glucose [Mass/Vol] 116 mg/dL High 65 - 105 mg/dL [facility] Arterial Blood Gas, POCon FIO2 30.0 [facility] HCO3 (Bld) [Moles/Vol] 26.0 mmol/L 21.0 - 28.0 mmol/L [facility] O2 Device/Flow/% Adult Ventilator [facility] Oxygen saturation in Blood 99 % High 94.0 - 98.0 % [facility] POC pCO2 38.7 [facility] POC pH 7.435 [facility] POC PO2 112.3 High [facility] Positive Base Excess, Art 2 [facility] Sample Site Arterial Line [facility] Basic Metabolic Panel w/ Ref rafael to MGon 08-05-2021 Anion gap [Moles/Vol] 11 mmol/L 9 - 17 mmol/L [facility] Calcium [Mass/Vol] 8.5 mg/dL Low 8.6 - 10. 4 mg/dL [facility] Chloride [Moles/Vol] 109 mmol/L High 98 - 10 7 mmol/L [facility] CO2 [Moles/Vol] 23 mmol/L 20 - 31 mmol/L [facility] Creatinine [Mass/Vol] 0.53 mg/dL 0.50 - 0.90 mg/dL [facility] GFR >60 >60 mL/min [facility] GFR Non- >60 >60 mL/min [facility] GFR/1.73 sq M.predicted MDRD (S/P/Bld) [Vol rate/Area] [facility] Glucose [Mass/Vol] 121 mg/dL High 70 - 99 mg/dL [facility] Interpretation and review of laboratory results Abnormal [facility] Potassium [Moles/Vol] 3.5 mmol/L Low 3.7 - 5.3 mmol/L [facility] Sodium [Moles/Vol] 143 mmol/L 135 - 144 mmol/L [facility] Urea nitrogen (BldV) [Mass/Vol] 14 mg/dL 6 - 20 mg/dL [facility] CBC with Auto Differentialon 08-05-2021 Absolute Eos # 0.25 [place] [facility] Absolute Immature Granulocyte 0.05 [facility] Absolute Lymph # 1.83 [facility] Absolute [place] # 0.57 [facility] Basophils (Bld) [#/Vol] 10*3/uL [facility] Basophils/100 WBC (Bld) 0 % 0 - 2 % [facility] Eosinophils/100 WBC (Bld) 3 % 1 - 4 % [facility] Hematocrit (Bld) [Volume fraction] 24.2 % Low 36.3 - 47.1 % [facility] Hemoglobin (Bld) [Mass/Vol] 7.7 g/dL Low 11.9 - 15.1 g/dL [facility] Immature granulocytes/100 WBC (Bld) 1 % High 0 [facility] Interpretation and review of laboratory results Abnormal [facility] Lymphocytes/100 WBC (Bld) 19 % Low 24 - 43 % [facility] MCH (RBC) [Entitic mass] 31.2 pg 25.2 - 33.5 pg [facility] MCHC (RBC) [Mass/Vol] 31.8 g/dL 28.4 - 34.8 g/dL [facility] MCV (RBC) [Entitic vol] 98.0 fL 82.6 - 102.9 fL [facility] Monocytes/100 WBC (Bld) 6 % 3 - 12 % [facility] NRBC Automated 0.0 0.0 per 100 WBC [facility] Platelet distribution width (Bld) [Ratio] 18.3 % High 11.8 - 14.4 % [facility] Platelet mean volume (Bld) [Entitic vol] 8.6 fL 8.1 - 13.5 fL [facility] Platelets (Bld) [#/Vol] 458 10*3/uL High [facility] RBC (Bld) [#/Vol] 2.47 10*6/uL Low 3.95 - 5.1 1 m/uL [facility] RBC (Bld) [#/Vol] ANISOCYTOSIS PRESENT [facility] Seg Neutrophils 71 % High 36 - 65 % [facility] Segs Absolute 6.77 [facility] WBC (Bld) [#/Vol] 9.5 10*3/uL [facility] Magnesiumon 08-05-2021 Magnesium [Mass/Vol] 1.8 mg/dL 1.6 - 2 .6 mg/dL [facility] No Panel Informationon 08-05 Interpretation and review of laboratory results Abnormal [facility] POC Glucose Fingerstickon Glucose [Mass/Vol] 130 mg/dL High 65 - 105 mg/dL [facility] Interpretation and review of laboratory results Abnormal [facility] Glucose [Mass/Vol] 139 mg/dL High 65 - 105 mg/dL [facility] Interpretation and review of laboratory results Abnormal [facility] Glucose [Mass/Vol] 126 mg/dL High 65 - 105 mg/dL [facility] Interpretation and review of laboratory results Abnormal [facility] Glucose [Mass/Vol] 151 mg/dL High 65 - 105 mg/dL [facility] Interpretation and review of laboratory results Abnormal [facility] POCT Glucoseon 08-05-2021 Glucose [Mass/Vol] 112 mg/dL High 74 - 100 mg/dL [facility] Basic Metabolic Panel w/ Ref rafael to MGon 08-04-2021 Anion gap [Moles/Vol] 11 mmol/L 9 - 17 mmol/L [facility] Calcium [Mass/Vol] 8.1 mg/dL Low 8.6 - 10. 4 mg/dL [facility] Chloride [Moles/Vol] 108 mmol/L High 98 - 10 7 mmol/L [facility] CO2 [Moles/Vol] 22 mmol/L 20 - 31 mmol/L [facility] Creatinine [Mass/Vol] 0.57 mg/dL 0.50 - 0.90 mg/dL [facility] GFR >60 >60 mL/min [facility] GFR Non- >60 >60 mL/min [facility] GFR/1.73 sq M.predicted MDRD (S/P/Bld) [Vol rate/Area] [facility] Glucose [Mass/Vol] 195 mg/dL High 70 - 99 mg/dL [facility] Interpretation and review of laboratory results Abnormal [facility] Potassium [Moles/Vol] 3.5 mmol/L Low 3.7 - 5.3 mmol/L [facility] Sodium [Moles/Vol] 141 mmol/L 135 - 144 mmol/L [facility] Urea nitrogen (BldV) [Mass/Vol] 17 mg/dL 6 - 20 mg/dL [facility] CBC with Auto Differentialon 08-04-2021 Absolute Eos # 0.24 [facility] Absolute Immature Granulocyte 0.07 [facility] Absolute Lymph # 1.77 [facility] Absolute [place] # 0.72 [facility] Basophils (Bld) [#/Vol] 10*3/uL [facility] Basophils/100 WBC (Bld) 0 % 0 - 2 % [facility] Eosinophils/100 WBC (Bld) 2 % 1 - 4 % [facility] Hematocrit (Bld) [Volume fraction] 23.7 % Low 36.3 - 47.1 % [facility] Hemoglobin (Bld) [Mass/Vol] 8.0 g/dL Low 11.9 - 15.1 g/dL [facility] Immature granulocytes/100 WBC (Bld) 1 % High 0 [facility] Interpretation and review of laboratory results Abnormal [facility] Lymphocytes/100 WBC (Bld) 17 % Low 24 - 43 % [facility] MCH (RBC) [Entitic mass] 32.3 pg 25.2 - 33.5 pg [facility] MCHC (RBC) [Mass/Vol] 33.8 g/dL 28.4 - 34.8 g/dL [facility] MCV (RBC) [Entitic vol] 95.6 fL 82.6 - 102.9 fL [facility] Monocytes/100 WBC (Bld) 7 % 3 - 12 % [facility] NRBC Automated 0.0 0.0 per 100 WBC [facility] Platelet distribution width (Bld) [Ratio] 18.4 % High 11.8 - 14.4 % [facility] Platelet mean volume (Bld) [Entitic vol] 8.7 fL 8.1 - 13.5 fL [facility] Platelets (Bld) [#/Vol] 429 10*3/uL [facility] RBC (Bld) [#/Vol] 2.48 10*6/uL Low 3.95 - 5.1 1 m/uL [facility] RBC (Bld) [#/Vol] ANISOCYTOSIS PRESENT [facility] Seg Neutrophils 73 % High 36 - 65 % [facility] Segs Absolute 7.64 [facility] WBC (Bld) [#/Vol] 10.5 10*3/uL [facility] Lipase[facility] 08-04-2021 Lipase [Catalytic activity/Vol] 16 U/L 13 - 60 U/L [facility] Magnesiumon 08-04-2021 Magnesium [Mass/Vol] 1.9 mg/dL 1.6 - 2 .6 mg/dL [facility] POC Glucose Fingerstickon Glucose [Mass/Vol] 170 mg/dL High 65 - 105 mg/dL [facility] Interpretation and review of laboratory results Abnormal [facility] Glucose [Mass/Vol] 118 mg/dL High 65 - 105 mg/dL [facility] Interpretation and review of laboratory results Abnormal [facility] Glucose [Mass/Vol] 226 mg/dL High 65 - 105 mg/dL [facility] Interpretation and review of laboratory results Abnormal [facility] Glucose [Mass/Vol] 192 mg/dL High 65 - 105 mg/dL [facility] Interpretation and review of laboratory results Abnormal [facility] Arterial Blood Gas, POCon Adarsh Test NOT APPLICABLE [facility] FIO2 30.0 [facility] HCO3 (Bld) [Moles/Vol] 24.5 mmol/L 21.0 - 28.0 mmol/L [facility] Mode PRVC [facility] O2 Device/Flow/% Adult Ventilator [facility] Oxygen saturation in Blood 99 % High 94.0 - 98.0 % [facility] POC pCO2 31.7 Low [facility] POC pH 7.497 High [facility] POC PO2 116.0 High [facility] Positive Base Excess, Art 2 [facility] Sample Site Arterial Line [facility] Basic Metabolic Panel w/ Ref rafael to MGon 08-03-2021 Anion gap [Moles/Vol] 10 mmol/L 9 - 17 mmol/L [facility] Calcium [Mass/Vol] 8.3 mg/dL Low 8.6 - 10. 4 mg/dL [facility] Chloride [Moles/Vol] 107 mmol/L 98 - 10 7 mmol/L [facility] CO2 [Moles/Vol] 22 mmol/L 20 - 31 mmol/L [facility] Creatinine [Mass/Vol] 0.6 mg/dL 0.50 - 0.90 mg/dL [facility] GFR >60 >60 mL/min [facility] GFR Non- >60 >60 mL/min [facility] GFR/1.73 sq M.predicted MDRD (S/P/Bld) [Vol rate/Area] [facility] Glucose [Mass/Vol] 210 mg/dL High 70 - 99 mg/dL [facility] Interpretation and review of laboratory results Abnormal [facility] Potassium [Moles/Vol] 3.6 mmol/L Low 3.7 - 5.3 mmol/L [facility] Sodium [Moles/Vol] 139 mmol/L 135 - 144 mmol/L [facility] Urea nitrogen (BldV) [Mass/Vol] 15 mg/dL 6 - 20 mg/dL [facility] CBC with Auto Differentialon 08-03-2021 Absolute Eos # 0.19 [place] [facility] Absolute Immature Granulocyte 0.11 [facility] Absolute Lymph # 1.74 [facility] Absolute [place] # 0.92 [facility] Basophils (Bld) [#/Vol] 0.03 10*3/uL [facility] Basophils/100 WBC (Bld) 0 % 0 - 2 % [facility] Eosinophils/100 WBC (Bld) 2 % 1 - 4 % [facility] Hematocrit (Bld) [Volume fraction] 24.8 % Low 36.3 - 47.1 % [facility] Hemoglobin (Bld) [Mass/Vol] 8.3 g/dL Low 11.9 - 15.1 g/dL [facility] Immature granulocytes/100 WBC (Bld) 1 % High 0 [facility] Interpretation and review of laboratory results Abnormal [facility] Lymphocytes/100 WBC (Bld) 15 % Low 24 - 43 % [facility] MCH (RBC) [Entitic mass] 31.6 pg 25.2 - 33.5 pg [facility] MCHC (RBC) [Mass/Vol] 33.5 g/dL 28.4 - 34.8 g/dL [facility] MCV (RBC) [Entitic vol] 94.3 fL 82.6 - 102.9 fL [facility] Monocytes/100 WBC (Bld) 8 % 3 - 12 % [facility] NRBC Automated 0.0 0.0 per 100 WBC [facility] Platelet distribution width (Bld) [Ratio] 18.5 % High 11.8 - 14.4 % [facility] Platelet mean volume (Bld) [Entitic vol] 8.8 fL 8.1 - 13.5 fL [facility] Platelets (Bld) [#/Vol] 429 10*3/uL [facility] RBC (Bld) [#/Vol] 2.63 10*6/uL Low 3.95 - 5.1 1 m/uL [facility] RBC (Bld) [#/Vol] ANISOCYTOSIS PRESENT [facility] Seg Neutrophils 74 % High 36 - 65 % [facility] Segs Absolute 8.94 High [facility] WBC (Bld) [#/Vol] 11.9 10*3/uL High [facility] No Panel Informationon 08-03 Interpretation and review of laboratory results Abnormal [facility] POC Glucose Fingerstickon Glucose [Mass/Vol] 302 mg/dL High 65 - 105 mg/dL [facility] Interpretation and review of laboratory results Abnormal [facility] Glucose [Mass/Vol] 246 mg/dL High 65 - 105 mg/dL [facility] Interpretation and review of laboratory results Abnormal [facility] Glucose [Mass/Vol] 196 mg/dL High 65 - 105 mg/dL [facility] Interpretation and review of laboratory results Abnormal [facility] Glucose [Mass/Vol] 222 mg/dL High 65 - 105 mg/dL [facility] Interpretation and review of laboratory results Abnormal [facility] Glucose [Mass/Vol] 216 mg/dL High 65 - 105 mg/dL [facility] Interpretation and review of laboratory results Abnormal [facility] POCT Glucoseon 08-03-2021 Glucose [Mass/Vol] 218 mg/dL High 74 - 100 mg/dL [facility] Arterial Blood Gas, POCon Adarsh Test NOT APPLICABLE [facility] FIO2 30.0 [facility] HCO3 (Bld) [Moles/Vol] 24.2 mmol/L 21.0 - 28.0 mmol/L [facility] Mode [facility] O2 Device/Flow/% Adult Ventilator [facility] Oxygen saturation in Blood 99 % High 94.0 - 98.0 % [facility] POC pCO2 35.7 [facility] POC pH 7.439 [facility] POC PO2 119.9 High [facility] Positive Base Excess, Art 0 [facility] Sample Site Arterial Line [facility] Basic Metabolic Panel w/ Ref rafael to MGon 08-02-2021 Anion gap [Moles/Vol] 9 mmol/L 9 - 17 mmol/L [facility] Calcium [Mass/Vol] 8.0 mg/dL Low 8.6 - 10. 4 mg/dL [facility] Chloride [Moles/Vol] 106 mmol/L 98 - 10 7 mmol/L [facility] CO2 [Moles/Vol] 22 mmol/L 20 - 31 mmol/L [facility] Creatinine [Mass/Vol] 0.67 mg/dL 0.50 - 0.90 mg/dL [facility] GFR >60 >60 mL/min [facility] GFR Non- >60 >60 mL/min [facility] GFR/1.73 sq M.predicted MDRD (S/P/Bld) [Vol rate/Area] [facility] Glucose [Mass/Vol] 247 mg/dL High 70 - 99 mg/dL [facility] Interpretation and review of laboratory results Abnormal [facility] Potassium [Moles/Vol] 3.3 mmol/L Low 3.7 - 5.3 mmol/L [facility] Sodium [Moles/Vol] 137 mmol/L 135 - 144 mmol/L [facility] Urea nitrogen (BldV) [Mass/Vol] 15 mg/dL 6 - 20 mg/dL [facility] CBC with Auto Differentialon 08-02-2021 Absolute Eos # 0.15 [facility] Absolute Immature Granulocyte 0.26 [facility] Absolute Lymph # 1.97 [facility] Absolute [place] # 0.99 [facility] Basophils (Bld) [#/Vol] 0.04 10*3/uL [facility] Basophils/100 WBC (Bld) 0 % 0 - 2 % [facility] Eosinophils/100 WBC (Bld) 1 % 1 - 4 % [facility] Hematocrit (Bld) [Volume fraction] 23.5 % Low 36.3 - 47.1 % [facility] Hemoglobin (Bld) [Mass/Vol] 8.0 g/dL Low 11.9 - 15.1 g/dL [facility] Immature granulocytes/100 WBC (Bld) 2 % High 0 [facility] Interpretation and review of laboratory results Abnormal [facility] Lymphocytes/100 WBC (Bld) 16 % Low 24 - 43 % [facility] MCH (RBC) [Entitic mass] 32.0 pg 25.2 - 33.5 pg [facility] MCHC (RBC) [Mass/Vol] 34.0 g/dL 28.4 - 34.8 g/dL [facility] MCV (RBC) [Entitic vol] 94.0 fL 82.6 - 102.9 fL [facility] Monocytes/100 WBC (Bld) 8 % 3 - 12 % B ON [facility] NRBC Automated 0.0 0.0 per 100 WBC [facility] Platelet distribution width (Bld) [Ratio] 18.5 % High 11.8 - 14.4 % [facility] Platelet mean volume (Bld) [Entitic vol] 8.4 fL 8.1 - 13.5 fL [facility] Platelets (Bld) [#/Vol] 398 10*3/uL [facility] RBC (Bld) [#/Vol] 2.50 10*6/uL Low 3.95 - 5.1 1 m/uL [facility] RBC (Bld) [#/Vol] ANISOCYTOSIS PRESENT [facility] Seg Neutrophils 73 % High 36 - 65 % [facility] Segs Absolute 8.88 High [facility] WBC (Bld) [#/Vol] 12.3 10*3/uL High [facility] Magnesiumon 08-02-2021 Magnesium [Mass/Vol] 1.7 mg/dL 1.6 - 2 .6 mg/dL [facility] No Panel Informationon 08-02 Interpretation and review of laboratory results Abnormal [facility] POC Glucose Fingerstickon Glucose [Mass/Vol] 194 mg/dL High 65 - 105 mg/dL [facility] Interpretation and review of laboratory results Abnormal [facility] Glucose [Mass/Vol] 112 mg/dL High 65 - 105 mg/dL [facility] Interpretation and review of laboratory results Abnormal [facility] Glucose [Mass/Vol] 172 mg/dL High 65 - 105 mg/dL [facility] Interpretation and review of laboratory results Abnormal [facility] Glucose [Mass/Vol] 251 mg/dL High 65 - 105 mg/dL [facility] Interpretation and review of laboratory results Abnormal [facility] Glucose [Mass/Vol] 240 mg/dL High 65 - 105 mg/dL [facility] Interpretation and review of laboratory results Abnormal [facility] POCT Glucoseon 08-02-2021 Glucose [Mass/Vol] 286 mg/dL High 74 - 100 mg/dL [facility] Basic Metabolic Panel w/ Ref rafael to MGon 08-01-2021 Anion gap [Moles/Vol] 13 mmol/L 9 - 17 mmol/L [facility] Calcium [Mass/Vol] 7.9 mg/dL Low 8.6 - 10. 4 mg/dL [facility] Chloride [Moles/Vol] 105 mmol/L 98 - 10 7 mmol/L [facility] CO2 [Moles/Vol] 20 mmol/L 20 - 31 mmol/L [facility] Creatinine [Mass/Vol] 0.72 mg/dL 0.50 - 0.90 mg/dL [facility] GFR >60 >60 mL/min [facility] GFR Non- >60 >60 mL/min [facility] GFR/1.73 sq M.predicted MDRD (S/P/Bld) [Vol rate/Area] [facility] Glucose [Mass/Vol] 212 mg/dL High 70 - 99 mg/dL [facility] Interpretation and review of laboratory results Abnormal [facility] Potassium [Moles/Vol] 3.2 mmol/L Low 3.7 - 5.3 mmol/L [facility] Sodium [Moles/Vol] 138 mmol/L 135 - 144 mmol/L [facility] Urea nitrogen (BldV) [Mass/Vol] 15 mg/dL 6 - 20 mg/dL [facility] CBC with Auto Differentialon 08-01-2021 Absolute Eos # 0.14 [place] [facility] Absolute Immature Granulocyte 0.56 High [facility] Absolute Lymph # 2.66 [facility] Absolute [place] # 0.70 [facility] Basophils (Bld) [#/Vol] 0.00 10*3/uL [facility] Basophils/100 WBC (Bld) 0 % 0 - 2 % [facility] Eosinophils/100 WBC (Bld) 1 % 1 - 4 % [facility] Hematocrit (Bld) [Volume fraction] 27.1 % Low 36.3 - 47.1 % [facility] Hemoglobin (Bld) [Mass/Vol] 9.1 g/dL Low 11.9 - 15.1 g/dL [facility] Immature granulocytes/100 WBC (Bld) 4 % High 0 [facility] Interpretation and review of laboratory results Abnormal [facility] Lymphocytes/100 WBC (Bld) 19 % Low 24 - 44 % [facility] MCH (RBC) [Entitic mass] 31.7 pg 25.2 - 33.5 pg [facility] MCHC (RBC) [Mass/Vol] 33.6 g/dL 28.4 - 34.8 g/dL [facility] MCV (RBC) [Entitic vol] 94.4 fL 82.6 - 102.9 fL [facility] Monocytes/100 WBC (Bld) 5 % 1 - 7 % B ON [facility] Morphology Malachi (Bld) [Interp] ANISOCYTOSIS PRESENT [facility] NRBC Automated 0.0 0.0 per 100 WBC [facility] Platelet distribution width (Bld) [Ratio] 18.8 % High 11.8 - 14.4 % [facility] Platelet mean volume (Bld) [Entitic vol] 8.7 fL 8.1 - 13.5 fL [facility] Platelets (Bld) [#/Vol] 490 10*3/uL High [facility] RBC (Bld) [#/Vol] 2.87 10*6/uL Low 3.95 - 5.1 1 m/uL [facility] Seg Neutrophils 71 % High 36 - 66 % [facility] Segs Absolute 9.94 High [facility] WBC (Bld) [#/Vol] 14.0 10*3/uL High [facility] Magnesiumon 08-01-2021 Magnesium [Mass/Vol] 1.7 mg/dL 1.6 - 2 .6 mg/dL [facility] POC Glucose Fingerstickon Glucose [Mass/Vol] 124 mg/dL High 65 - 105 mg/dL [facility] Interpretation and review of laboratory results Abnormal [facility] Glucose [Mass/Vol] 201 mg/dL High 65 - 105 mg/dL [facility] Interpretation and review of laboratory results Abnormal [facility] Glucose [Mass/Vol] 264 mg/dL High 65 - 105 mg/dL [facility] Interpretation and review of laboratory results Abnormal [facility] Glucose [Mass/Vol] 184 mg/dL High 65 - 105 mg/dL [facility] Interpretation and review of laboratory results Abnormal [facility] Glucose [Mass/Vol] 241 mg/dL High 65 - 105 mg/dL [facility] Interpretation and review of laboratory results Abnormal [facility] Triglycerideon 08-01-2021 Interpretation and review of laboratory results Abnormal [facility] Triglyceride [Mass/Vol] 164 mg/dL High <150 B ON [facility] Basic Metabolic Panel w/ Ref rafael to MGon 07-31-2021 Anion gap [Moles/Vol] 14 mmol/L 9 - 17 mmol/L [facility] Calcium [Mass/Vol] 8.0 mg/dL Low 8.6 - 10. 4 mg/dL [facility] Chloride [Moles/Vol] 106 mmol/L 98 - 10 7 mmol/L [facility] CO2 [Moles/Vol] 20 mmol/L 20 - 31 mmol/L [facility] Creatinine [Mass/Vol] 0.78 mg/dL 0.50 - 0.90 mg/dL [facility] GFR >60 >60 mL/min [facility] GFR Non- >60 >60 mL/min [facility] GFR/1.73 sq M.predicted MDRD (S/P/Bld) [Vol rate/Area] [facility] Glucose [Mass/Vol] 209 mg/dL High 70 - 99 mg/dL [facility] Interpretation and review of laboratory results Abnormal [facility] Potassium [Moles/Vol] 3.3 mmol/L Low 3.7 - 5.3 mmol/L [facility] Sodium [Moles/Vol] 140 mmol/L 135 - 144 mmol/L [facility] Urea nitrogen (BldV) [Mass/Vol] 14 mg/dL 6 - 20 mg/dL [facility] CBC with Auto Differentialon 07-31-2021 Absolute Eos # 0.28 [facility] Absolute Immature Granulocyte 0.98 High [facility] Absolute Lymph # 2.94 [facility] Absolute [place] # 0.98 High [facility] Basophils (Bld) [#/Vol] 0.00 10*3/uL [facility] Basophils/100 WBC (Bld) 0 % 0 - 2 % B ON [facility] Eosinophils/100 WBC (Bld) 2 % 1 - 4 % [facility] Hematocrit (Bld) [Volume fraction] 27.4 % Low 36.3 - 47.1 % [facility] Hemoglobin (Bld) [Mass/Vol] 9.5 g/dL Low 11.9 - 15.1 g/dL [facility] Immature granulocytes/100 WBC (Bld) 7 % High 0 [facility] Interpretation and review of laboratory results Abnormal [facility] Lymphocytes/100 WBC (Bld) 21 % Low 24 - 44 % [facility] MCH (RBC) [Entitic mass] 31.8 pg 25.2 - 33.5 pg [facility] MCHC (RBC) [Mass/Vol] 34.7 g/dL 28.4 - 34.8 g/dL [facility] MCV (RBC) [Entitic vol] 91.6 fL 82.6 - 102.9 fL [facility] Monocytes/100 WBC (Bld) 7 % 1 - 7 % B ON [facility] Morphology Malachi (Bld) [Interp] ANISOCYTOSIS PRESENT [facility] NRBC Automated 0.0 0.0 per 100 WBC [facility] Platelet distribution width (Bld) [Ratio] 18.4 % High 11.8 - 14.4 % [facility] Platelet mean volume (Bld) [Entitic vol] 8.7 fL 8.1 - 13.5 fL [facility] Platelets (Bld) [#/Vol] 502 10*3/uL High [facility] RBC (Bld) [#/Vol] 2.99 10*6/uL Low 3.95 - 5.1 1 m/uL [facility] Seg Neutrophils 63 % 36 - 66 % [facility] Segs Absolute 8.82 High [facility] WBC (Bld) [#/Vol] 14.0 10*3/uL High [facility] Hemoglobin and Hematocriton 07-31-2021 Hematocrit (Bld) [Volume fraction] 27.4 % Low 36.3 - 47.1 % [facility] Hemoglobin (Bld) [Mass/Vol] 9.2 g/dL Low 11.9 - 15.1 g/dL [facility] Interpretation and review of laboratory results Abnormal [facility] Magnesiumon 07-31-2021 Magnesium [Mass/Vol] 1.6 mg/dL 1.6 - 2 .6 mg/dL [facility] POC Glucose Fingerstickon Glucose [Mass/Vol] 134 mg/dL High 65 - 105 mg/dL [facility] Interpretation and review of laboratory results Abnormal [facility] Glucose [Mass/Vol] 230 mg/dL High 65 - 105 mg/dL [facility] Interpretation and review of laboratory results Abnormal [facility] Glucose [Mass/Vol] 214 mg/dL High 65 - 105 mg/dL [facility] Interpretation and review of laboratory results Abnormal [facility] Glucose [Mass/Vol] 197 mg/dL High 65 - 105 mg/dL [facility] Interpretation and review of laboratory results Abnormal [facility] Glucose [Mass/Vol] 164 mg/dL High 65 - 105 mg/dL [facility] Interpretation and review of laboratory results Abnormal [facility] Arterial Blood Gas, POCon Adarsh Test NOT APPLICABLE [facility] FIO2 30.0 [facility] HCO3 (Bld) [Moles/Vol] 24.4 mmol/L 21.0 - 28.0 mmol/L [facility] Interpretation and review of laboratory results Abnormal [facility] Mode PRVC [facility] O2 Device/Flow/% Adult Ventilator [facility] Oxygen saturation in Blood 98 % 94.0 - 98.0 % [facility] POC pCO2 33.3 Low [facility] POC pH 7.473 High [facility] POC PO2 104.7 [facility] Positive Base Excess, Art 1 [facility] Sample Site Arterial Line [facility] Basic Metabolic Panel w/ Ref rafael to MGon 07-30-2021 Anion gap [Moles/Vol] 10 mmol/L 9 - 17 mmol/L [facility] Calcium [Mass/Vol] 8.0 mg/dL Low 8.6 - 10. 4 mg/dL [facility] Chloride [Moles/Vol] 105 mmol/L 98 - 10 7 mmol/L [facility] CO2 [Moles/Vol] 22 mmol/L 20 - 31 mmol/L [facility] Creatinine [Mass/Vol] 0.7 mg/dL 0.50 - 0.90 mg/dL [facility] GFR >60 >60 mL/min [facility] GFR Non- >60 >60 mL/min [facility] GFR/1.73 sq M.predicted MDRD (S/P/Bld) [Vol rate/Area] [facility] Glucose [Mass/Vol] 276 mg/dL High 70 - 99 mg/dL [facility] Interpretation and review of laboratory results Abnormal [facility] Potassium [Moles/Vol] 3.8 mmol/L 3.7 - 5.3 mmol/L [facility] Sodium [Moles/Vol] 137 mmol/L 135 - 144 mmol/L [facility] Urea nitrogen (BldV) [Mass/Vol] 14 mg/dL 6 - 20 mg/dL [facility] CBC with Auto Differentialon 07-30-2021 Absolute Eos # 0.00 [place] [facility] Absolute Immature Granulocyte 0.71 High [facility] Absolute Lymph # 3.69 [facility] Absolute [place] # 0.57 [facility] Basophils (Bld) [#/Vol] 0.00 10*3/uL [facility] Basophils/100 WBC (Bld) 0 % 0 - 2 % [facility] Eosinophils/100 WBC (Bld) 0 % Low 1 - 4 % [facility] Hematocrit (Bld) [Volume fraction] 27.0 % Low 36.3 - 47.1 % [facility] Hemoglobin (Bld) [Mass/Vol] 9.3 g/dL Low 11.9 - 15.1 g/dL [facility] Immature granulocytes/100 WBC (Bld) 5 % High 0 [facility] Interpretation and review of laboratory results Abnormal [facility] Lymphocytes/100 WBC (Bld) 26 % 24 - 44 % [facility] MCH (RBC) [Entitic mass] 31.5 pg 25.2 - 33.5 pg [facility] MCHC (RBC) [Mass/Vol] 34.4 g/dL 28.4 - 34.8 g/dL [facility] MCV (RBC) [Entitic vol] 91.5 fL 82.6 - 102.9 fL [facility] Monocytes/100 WBC (Bld) 4 % 1 - 7 % B ON [facility] Morphology Malachi (Bld) [Interp] ANISOCYTOSIS PRESENT [facility] NRBC Automated 0.0 0.0 per 100 WBC [facility] Platelet distribution width (Bld) [Ratio] 17.7 % High 11.8 - 14.4 % [facility] Platelet mean volume (Bld) [Entitic vol] 8.8 fL 8.1 - 13.5 fL [facility] Platelets (Bld) [#/Vol] 491 10*3/uL High [facility] RBC (Bld) [#/Vol] 2.95 10*6/uL Low 3.95 - 5.1 1 m/uL [facility] Seg Neutrophils 65 % 36 - 66 % [facility] Segs Absolute 9.23 High [facility] WBC (Bld) [#/Vol] 14.2 10*3/uL High [facility] Hemoglobin and Hematocriton 07-30-2021 Hematocrit (Bld) [Volume fraction] 29.5 % Low 36.3 - 47.1 % [facility] Hemoglobin (Bld) [Mass/Vol] 9.6 g/dL Low 11.9 - 15.1 g/dL [facility] Interpretation and review of laboratory results Abnormal [facility] POC Glucose Fingerstickon 06 -13-2022 Glucose [Mass/Vol] 106 mg/dL High 65 - 105 mg/dL [facility] Interpretation and review of laboratory results Abnormal [facility] Glucose [Mass/Vol] 231 mg/dL High 65 - 105 mg/dL [facility] Interpretation and review of laboratory results Abnormal [facility] TYPE AND SCREENon 07-30-2021 ABO/Rh Positive [facility] Arm Band Number BE [id number] [facility] Blood Bank Blood Product Expiration Date [id number] [facility] Blood Bank ISBT Product Blood Type [id number] [facility] Blood Bank Unit Type and Rh Positive [facility] Blood product type Nom (BPU) Leukocyte Reduced Red Cell [facility] Blood product unit ID (Dose) [#] [id number] [facility] Crossmatch Result [facility] Dispense Status TRANSFUSED [facility] Expiration Date 08/01/2021,2359 [facility] Product Code Blood Bank [id number] [facility] Transfusion Status OK TO TRANSFUSE B ON [facility] Unit Divison 0 [facility] Unit Issue Date/Time [id number] [facility] Arterial Blood Gas, POCon Adarsh Test NOT APPLICABLE [facility] FIO2 30.0 [facility] HCO3 (Bld) [Moles/Vol] 23.0 mmol/L 21.0 - 28.0 mmol/L [facility] Interpretation and review of laboratory results Abnormal [facility] Mode PRVC [facility] Negative Base Excess, Art 1 [facility] O2 Device/Flow/% Adult Ventilator N [facility] Oxygen saturation in Blood 99 % High 94.0 - 98.0 % [facility] POC pCO2 35.1 [facility] POC pH 7.425 [facility] POC PO2 120.9 High [facility] Sample Site Arterial Line [facility] Basic Metabolic Panel w/ Ref rafael to MGon 07-29-2021 Anion gap [Moles/Vol] 9 mmol/L 9 - 17 mmol/L [facility] Calcium [Mass/Vol] 7.8 mg/dL Low 8.6 - 10. 4 mg/dL [facility] Chloride [Moles/Vol] 106 mmol/L 98 - 10 7 mmol/L [facility] CO2 [Moles/Vol] 21 mmol/L 20 - 31 mmol/L [facility] Creatinine [Mass/Vol] 0.71 mg/dL 0.50 - 0.90 mg/dL [facility] GFR >60 >60 mL/min [facility] GFR Non- >60 >60 mL/min [facility] GFR/1.73 sq M.predicted MDRD (S/P/Bld) [Vol rate/Area] [facility] Glucose [Mass/Vol] 246 mg/dL High 70 - 99 mg/dL [facility] Interpretation and review of laboratory results Abnormal [facility] Potassium [Moles/Vol] 3.6 mmol/L Low 3.7 - 5.3 mmol/L [facility] Sodium [Moles/Vol] 136 mmol/L 135 - 144 mmol/L [facility] Urea nitrogen (BldV) [Mass/Vol] 11 mg/dL 6 - 20 mg/dL [facility] CBC with Auto Differentialon 07-29-2021 Absolute Eos # 0.00 [place] [facility] Absolute Immature Granulocyte 0.43 High [facility] Absolute Lymph # 3.13 [facility] Absolute [place] # 0.32 [facility] Basophils (Bld) [#/Vol] 0.00 10*3/uL [facility] Basophils/100 WBC (Bld) 0 % 0 - 2 % [facility] Eosinophils/100 WBC (Bld) 0 % Low 1 - 4 % [facility] Hematocrit (Bld) [Volume fraction] 22.5 % Low 36.3 - 47.1 % [facility] Hemoglobin (Bld) [Mass/Vol] 7.4 g/dL Low 11.9 - 15.1 g/dL [facility] Immature granulocytes/100 WBC (Bld) 4 % High 0 [facility] Interpretation and review of laboratory results Abnormal [facility] Lymphocytes/100 WBC (Bld) 29 % 24 - 44 % [facility] MCH (RBC) [Entitic mass] 30.7 pg 25.2 - 33.5 pg [facility] MCHC (RBC) [Mass/Vol] 32.9 g/dL 28.4 - 34.8 g/dL [facility] MCV (RBC) [Entitic vol] 93.4 fL 82.6 - 102.9 fL [facility] Monocytes/100 WBC (Bld) 3 % 1 - 7 % [facility] Morphology Malachi (Bld) [Interp] ANISOCYTOSIS PRESENT [facility] NRBC Automated 0.0 0.0 per 100 WBC [facility] Platelet distribution width (Bld) [Ratio] 19.6 % High 11.8 - 14.4 % [facility] Platelet mean volume (Bld) [Entitic vol] 8.9 fL 8.1 - 13.5 fL [facility] Platelets (Bld) [#/Vol] 500 10*3/uL High [facility] RBC (Bld) [#/Vol] 2.41 10*6/uL Low 3.95 - 5.1 1 m/uL [facility] Seg Neutrophils 64 % 36 - 66 % [facility] Segs Absolute 6.92 [facility] WBC (Bld) [#/Vol] 10.8 10*3/uL [facility] Hemoglobin and Hematocriton 07-29-2021 Hematocrit (Bld) [Volume fraction] 29.9 % Low 36.3 - 47.1 % [facility] Hemoglobin (Bld) [Mass/Vol] 10.1 g/dL Low 11.9 - 15.1 g/dL [facility] Interpretation and review of laboratory results Abnormal [facility] Hematocrit (Bld) [Volume fraction] 24.9 % Low 36.3 - 47.1 % [facility] Hemoglobin (Bld) [Mass/Vol] 8.4 g/dL Low 11.9 - 15.1 g/dL [facility] Interpretation and review of laboratory results Abnormal [facility] POC Glucose Fingerstickon Glucose [Mass/Vol] 169 mg/dL High 65 - 105 mg/dL [facility] Interpretation and review of laboratory results Abnormal [facility] Glucose [Mass/Vol] 296 mg/dL High 65 - 105 mg/dL [facility] Interpretation and review of laboratory results Abnormal [facility] Glucose [Mass/Vol] 276 mg/dL High 65 - 105 mg/dL [facility] Interpretation and review of laboratory results Abnormal [facility] Glucose [Mass/Vol] 217 mg/dL High 65 - 105 mg/dL [facility] Interpretation and review of laboratory results Abnormal [facility] Arterial Blood Gas, POCon FIO2 30.0 [facility] HCO3 (Bld) [Moles/Vol] 22.0 mmol/L 21.0 - 28.0 mmol/L [facility] Mode PRVC [facility] Negative Base Excess, Art 2 [facility] O2 Device/Flow/% Adult Ventilator [facility] Oxygen saturation in Blood 98 % 94.0 - 98.0 % [facility] POC pCO2 30.9 Low [facility] POC pH 7.460 High [facility] POC PO2 101.0 [facility] Sample Site Arterial Line [facility] Basic Metabolic Panel w/ Ref rafael to MGon 07-28-2021 Anion gap [Moles/Vol] 9 mmol/L 9 - 17 mmol/L [facility] Calcium [Mass/Vol] 8.1 mg/dL Low 8.6 - 10. 4 mg/dL [facility] Chloride [Moles/Vol] 108 mmol/L High 98 - 10 7 mmol/L [facility] CO2 [Moles/Vol] 20 mmol/L 20 - 31 mmol/L [facility] Creatinine [Mass/Vol] 0.73 mg/dL 0.50 - 0.90 mg/dL [facility] GFR >60 >60 mL/min [facility] GFR Non- >60 >60 mL/min [facility] GFR/1.73 sq M.predicted MDRD (S/P/Bld) [Vol rate/Area] [facility] Glucose [Mass/Vol] 195 mg/dL High 70 - 99 mg/dL [facility] Interpretation and review of laboratory results Abnormal [facility] Potassium [Moles/Vol] 4.2 mmol/L 3.7 - 5.3 mmol/L [facility] Sodium [Moles/Vol] 137 mmol/L 135 - 144 mmol/L [facility] Urea nitrogen (BldV) [Mass/Vol] 8 mg/dL 6 - 20 mg/dL [facility] CBC with Auto Differentialon 07-28-2021 Absolute Eos # 0.00 [facility] Absolute Immature Granulocyte 0[facility]64 High [facility] Absolute Lymph # 2.69 [facility] Absolute [place] # 0.00 Low [facility] Basophils (Bld) [#/Vol] 0.00 10*3/uL [facility] Basophils/100 WBC (Bld) 0 % 0 - 2 % [facility] Eosinophils/100 WBC (Bld) 0 % Low 1 - 4 % [facility] Hematocrit (Bld) [Volume fraction] 24.4 % Low 36.3 - 47.1 % [facility] Hemoglobin (Bld) [Mass/Vol] 7.9 g/dL Low 11.9 - 15.1 g/dL [facility] Immature granulocytes/100 WBC (Bld) 5 % High 0 [facility] Interpretation and review of laboratory results Abnormal [facility] Lymphocytes/100 WBC (Bld) 21 % Low 24 - 44 % [facility] MCH (RBC) [Entitic mass] 30.5 pg 25.2 - 33.5 pg [facility] MCHC (RBC) [Mass/Vol] 32.4 g/dL 28.4 - 34.8 g/dL [facility] MCV (RBC) [Entitic vol] 94.2 fL 82.6 - 102.9 fL [facility] Monocytes/100 WBC (Bld) 0 % Low 1 - 7 % B ON [facility] Morphology Malachi (Bld) [Interp] ANISOCYTOSIS PRESENT [facility] NRBC Automated 0.0 0.0 per 100 WBC [facility] Platelet distribution width (Bld) [Ratio] 19.0 % High 11.8 - 14.4 % [facility] Platelet mean volume (Bld) [Entitic vol] 8.8 fL 8.1 - 13.5 fL [facility] Platelets (Bld) [#/Vol] 490 10*3/uL High [facility] RBC (Bld) [#/Vol] 2.59 10*6/uL Low 3.95 - 5.1 1 m/uL [facility] Seg Neutrophils 74 % High 36 - 66 % [facility] Segs Absolute 9.47 High [facility] WBC (Bld) [#/Vol] 12.8 10*3/uL High [facility] Calcium, Ionizedon Calcium [Moles/Vol] 1.15 mmol/L 1.13 - 1 .33 mmol/L [facility] Hemoglobin and Hematocriton 07-28-2021 Hematocrit (Bld) [Volume fraction] 23.9 % Low 36.3 - 47.1 % [facility] Hemoglobin (Bld) [Mass/Vol] 8.2 g/dL Low 11.9 - 15.1 g/dL [facility] Interpretation and review of laboratory results Abnormal [facility] No Panel Informationon 07-28 Interpretation and review of laboratory results Abnormal [facility] POC Glucose Fingerstickon Glucose [Mass/Vol] 183 mg/dL High 65 - 105 mg/dL [facility] Interpretation and review of laboratory results Abnormal [facility] Glucose [Mass/Vol] 187 mg/dL High 65 - 105 mg/dL [facility] Interpretation and review of laboratory results Abnormal [facility] Glucose [Mass/Vol] 163 mg/dL High 65 - 105 mg/dL [facility] Interpretation and review of laboratory results Abnormal [facility] Glucose [Mass/Vol] 182 mg/dL High 65 - 105 mg/dL [facility] Interpretation and review of laboratory results Abnormal [facility] POCT Glucoseon 07-28-2021 Glucose [Mass/Vol] 177 mg/dL High 74 - 100 mg/dL [facility] CBC with Auto Differentialon 07-27-2021 Basophils (Bld) [#/Vol] 0.00 10*3/uL [facility] Basophils/100 WBC (Bld) 0 % 0 - 2 % [facility] Eosinophils/100 WBC (Bld) 0 % Low 1 - 4 % [facility] Hematocrit (Bld) [Volume fraction] 25.3 % Low 36.3 - 47.1 % [facility] Hemoglobin (Bld) [Mass/Vol] 8.5 g/dL Low 11.9 - 15.1 g/dL [facility] Lymphocytes/100 WBC (Bld) 19 % Low 24 - 44 % [facility] MCH (RBC) [Entitic mass] 30.6 pg 25.2 - 33.5 pg [facility] MCV (RBC) [Entitic vol] 91.0 fL 82.6 - 102.9 fL [facility] Morphology Malachi (Bld) [Interp] ANISOCYTOSIS PRESENT [facility] RBC (Bld) [#/Vol] 2.78 10*6/uL Low 3.95 - 5.1 1 m/uL [facility] Calcium, Ionizedon 2 Calcium [Moles/Vol] 1.19 mmol/L 1.13 - 1 .33 mmol/L [facility] Culture, Blood 2on 2 Bacteria identified Cx Nom (Unsp spec) NO GROWTH 5 DAYS [facility] Special Requests L HAND 20ML [facility] Specimen Description .BLOOD [facility] Hemoglobin and Hematocriton 07-27-2021 Hematocrit (Bld) [Volume fraction] 26.4 % Low 36.3 - 47.1 % [facility] Hemoglobin (Bld) [Mass/Vol] 9.0 g/dL Low 11.9 - 15.1 g/dL [facility] Interpretation and review of laboratory results Abnormal [facility] Magnesiumon 07-27-2021 Magnesium [Mass/Vol] 1.8 mg/dL 1.6 - 2 .6 mg/dL [facility] POC Glucose Fingerstickon Glucose [Mass/Vol] 149 mg/dL High 65 - 105 mg/dL [facility] Interpretation and review of laboratory results Abnormal [facility] Glucose [Mass/Vol] 162 mg/dL High 65 - 105 mg/dL [facility] Interpretation and review of laboratory results Abnormal [facility] Glucose [Mass/Vol] 160 mg/dL High 65 - 105 mg/dL [facility] Interpretation and review of laboratory results Abnormal [facility] Glucose [Mass/Vol] 147 mg/dL High 65 - 105 mg/dL [facility] Interpretation and review of laboratory results Abnormal [facility] Glucose [Mass/Vol] 135 mg/dL High 65 - 105 mg/dL [facility] Interpretation and review of laboratory results Abnormal [facility] Glucose [Mass/Vol] 204 mg/dL High 65 - 105 mg/dL [facility] Interpretation and review of laboratory results Abnormal [facility] Basic Metabolic Panel w/ Ref rafael to MGon 07-14-2021 Anion gap [Moles/Vol] 14 mmol/L 9 - 17 mmol/L [facility] Calcium [Mass/Vol] 8.2 mg/dL Low 8.6 - 10. 4 mg/dL [facility] Chloride [Moles/Vol] 97 mmol/L Low 98 - 10 7 mmol/L [facility] CO2 [Moles/Vol] 30 mmol/L 20 - 31 mmol/L [facility] Creatinine [Mass/Vol] 0.92 mg/dL High 0.50 - 0.90 mg/dL [facility] GFR >60 >60 mL/min [facility] GFR Non- >60 >60 mL/min [facility] GFR/1.73 sq M.predicted MDRD (S/P/Bld) [Vol rate/Area] [facility] Comment on above: Average GFR for 50-5 9 years old: 93 mL/min/1.73sq m Chronic Kidney Disease: <60 mL/min/1.73sq m Kidney failure: <15 mL/min/1.73sq m eGFR calculated using average adult body mass. Additional eGFR calculator available at: http://www.[employer]/multiple_crcl_2011.htm Glucose [Mass/Vol] 96 mg/dL 70 - 99 mg/dL [facility] Interpretation and review of laboratory results Abnormal [facility] Potassium [Moles/Vol] 2.0 mmol/L Critically low 3.7 - 5.3 mmol/L [facility] Sodium [Moles/Vol] 141 mmol/L 135 - 144 mmol/L [facility] Urea nitrogen (BldV) [Mass/Vol] 5 mg/dL Low 6 - 20 mg/dL [facility] Urea nitrogen/Creatinine (Bld) [Mass ratio] 5 Low [facility] CBC with Auto Differentialon 07-14-2021 Absolute Eos # 0.00 [facility] Absolute Lymph # 1.80 [facility] Absolute [place] # 0.80 [facility] Basophils (Bld) [#/Vol] 0.00 10*3/uL [facility] Basophils/100 WBC (Bld) 0 % 0 - 2 % [facility] Eosinophils/100 WBC (Bld) 0 % 0 - 5 % [facility] Hematocrit (Bld) [Volume fraction] 29.9 % Low 36 - 46 % [facility] Hemoglobin.gastrointest inal spec 1 Ql (Stl) 10.1 g/dL Low 12.0 - 16.0 g/dL [facility] Interpretation and review of laboratory results Abnormal [facility] Lymphocytes/100 WBC (Bld) 22 % 15 - 40 % [facility] MCH (RBC) [Entitic mass] 28.4 pg 26 - 34 pg [facility] MCHC (RBC) [Mass/Vol] 33.8 g/dL 31 - 3 7 g/dL [facility] MCV (RBC) [Entitic vol] 83.9 fL 80 - 100 fL [facility] Monocytes/100 WBC (Bld) 10 % High 4 - 8 % [facility] Morphology Malachi (Bld) [Interp] MODERATE ANISOCYTOSIS [facility] Platelet distribution width (Bld) [Ratio] 19.9 % High 12.1 - 15.2 % [facility] Platelets (Bld) [#/Vol] 701 10*3/uL High [facility] RBC (Bld) [#/Vol] 3.56 10*6/uL Low 4.0 - 5.2 m/uL [facility] Segmented neutrophils/100 WBC (Bld) 68 % 47 - 75 % [facility] Segs Absolute 5.60 [facility] WBC (Bld) [#/Vol] 8.2 10*3/uL [facility] Magnesiumon 07-14-2021 Magnesium [Mass/Vol] 1.6 mg/dL 1.6 - 2 .6 mg/dL [facility] CBC with Auto Differentialon 07-13-2021 Absolute Eos # 0.10 [place] [facility] Absolute Lymph # 1.60 [facility] Absolute [place] # 1.10 High [facility] Basophils (Bld) [#/Vol] 0.00 10*3/uL [facility] Basophils/100 WBC (Bld) 0 % 0 - 2 % [facility] Eosinophils/100 WBC (Bld) 1 % 0 - 5 % [facility] Hematocrit (Bld) [Volume fraction] 31.2 % Low 36 - 46 % [facility] Hemoglobin.gastrointest inal spec 1 Ql (Stl) 10.4 g/dL Low 12.0 - 16.0 g/dL [facility] Interpretation and review of laboratory results Abnormal [facility] Lymphocytes/100 WBC (Bld) 20 % 15 - 40 % [facility] MCH (RBC) [Entitic mass] 28.1 pg 26 - 34 pg [facility] MCHC (RBC) [Mass/Vol] 33.2 g/dL 31 - 3 7 g/dL [facility] MCV (RBC) [Entitic vol] 84.7 fL 80 - 100 fL [facility] Monocytes/100 WBC (Bld) 13 % High 4 - 8 % [facility] Morphology Malachi (Bld) [Interp] MODERATE ANISOCYTOSIS [facility] Morphology Malachi (Bld) [Interp] Scanned to verify automated differential. [facility] Platelet distribution width (Bld) [Ratio] 20.5 % High 12.1 - 15.2 % [facility] Platelets (Bld) [#/Vol] 725 10*3/uL High [facility] RBC (Bld) [#/Vol] 3.68 10*6/uL Low 4.0 - 5.2 m/uL [facility] Segmented neutrophils/100 WBC (Bld) 66 % 47 - 75 % [facility] Segs Absolute 5.30 [facility] WBC (Bld) [#/Vol] 8.1 10*3/uL [facility] COVID-19, Rapidon 07-13-2021 Interpretation and review of laboratory results Abnormal [facility] SARS-CoV-2 (COVID-19) RNA CAL+probe Ql (Unsp spec) Detected Abnormal Not Detected [facility] Comment on above: Rapid NAAT: The specimen [...] this assay. Fact sheet for Healthcare Providers: https://www.fda.gov/media/056500/download Fact sheet for Patients: https://www.fda.gov/media/889333/download Methodology: Isothermal Nucleic Acid Amplification Results reported to the appropriate Health Department Specimen Description .NASOPHARYNGEAL SWAB [facility] Comprehensive Metabolic Pane l w/ Reflex to MGon 07-13-2021 Albumin [Mass/Vol] 2.5 g/dL Low 3.5 - 5.2 g/dL [facility] ALP (Bld) [Catalytic activity/Vol] 450 U/L High 35 - 104 U/L [facility] ALT [Catalytic activity/Vol] 13 U/L 5 - 33 U/L [facility] Anion gap [Moles/Vol] 16 mmol/L 9 - 17 mmol/L [facility] AST [Catalytic activity/Vol] 29 U/L <32 [facility] Bilirubin [Mass/Vol] 0.64 mg/dL 0.30 - 1.20 mg/dL [facility] Calcium [Mass/Vol] 8.7 mg/dL 8.6 - 10. 4 mg/dL [facility] Chloride [Moles/Vol] 102 mmol/L 98 - 10 7 mmol/L [facility] CO2 [Moles/Vol] 25 mmol/L 20 - 31 mmol/L [facility] Creatinine [Mass/Vol] 0.85 mg/dL 0.50 - 0.90 mg/dL [facility] Free PSA/Total PSA [Mass fraction] 6.5 g/dL 6.4 - 8.3 g/dL [facility] GFR >60 >60 mL/min [facility] GFR Non- >60 >60 mL/min [facility] GFR/1.73 sq M.predicted MDRD (S/P/Bld) [Vol rate/Area] [facility] Comment on above: Average GFR for 50-5 9 years old: 93 mL/min/1.73sq m Chronic Kidney Disease: <60 mL/min/1.73sq m Kidney failure: <15 mL/min/1.73sq m eGFR calculated using average adult body mass. Additional eGFR calculator available at: http://www.[employer]/multiple_crcl_2012.htm Glucose [Mass/Vol] 79 mg/dL 70 - 99 mg/dL [facility] Interpretation and review of laboratory results Abnormal [facility] Potassium [Moles/Vol] 2.2 mmol/L Critically low 3.7 - 5.3 mmol/L [facility] Sodium [Moles/Vol] 143 mmol/L 135 - 144 mmol/L [facility] Urea nitrogen (BldV) [Mass/Vol] 7 mg/dL 6 - 20 mg/dL [facility] Urea nitrogen/Creatinine (Bld) [Mass ratio] 8 Low [facility] Lactate Dehydrogenaseon 06-18 Interpretation and review of laboratory results Abnormal [facility] LD 317 U/L High 135 - 214 U/L [facility] Lactic Acidon 07-13-2021 Lactate [Moles/Vol] 1 mmol/L 0.5 - 2. 2 mmol/L [facility] Magnesiumon 07-13-2021 Interpretation and review of laboratory results Abnormal [facility] Magnesium [Mass/Vol] 1.5 mg/dL Low 1.6 - 2 .6 mg/dL [facility] XR CHEST PORTABLEon 07-14-19 22 Left infrahilar patchy airspace disease consistent with a left lower lobe pneumonia. Recommend follow-up imaging 4 weeks post treatment to document resolution. [facility] RIS CONSOLIDATED EXAM: XR CHEST PORTABLE HISTORY: [...] anchor noted within the left humeral head. [facility] RIS Lionel Carroll MD - 07/13/2021 EXAM: XR CHEST PORTABLE [...] 4 weeks post treatment to document resolution. [facility] Work Phone: Radiology Study observation (narrative) [employer] Work Phone: XR CHEST PORTABLEOrdered By: Lionel Mas on 07-13-2021 [facility] Work Phone: Basic Metabolic Panel w/ Ref rafael to MGon 07-10-2021 Anion gap [Moles/Vol] 14 mmol/L 9 - 17 mmol/L [facility] Calcium [Mass/Vol] 7.4 mg/dL Low 8.6 - 10. 4 mg/dL [facility] Chloride [Moles/Vol] 110 mmol/L High 98 - 10 7 mmol/L [facility] CO2 [Moles/Vol] 16 mmol/L Low 20 - 31 mmol/L [facility] Creatinine [Mass/Vol] 1.01 mg/dL High 0.50 - 0.90 mg/dL [facility] GFR >60 >60 mL/min [facility] GFR Non- 56 mL/min Low >60 [facility] GFR/1.73 sq M.predicted MDRD (S/P/Bld) [Vol rate/Area] [facility] Glucose [Mass/Vol] 65 mg/dL Low 70 - 99 mg/dL [facility] Potassium [Moles/Vol] 3.3 mmol/L Low 3.7 - 5.3 mmol/L [facility] Sodium [Moles/Vol] 140 mmol/L 135 - 144 mmol/L [facility] Urea nitrogen (BldV) [Mass/Vol] 7 mg/dL 6 - 20 mg/dL [facility] C-Reactive Proteinon 022 CRP [Mass/Vol] 161.7 mg/L High 0.0 - 5.0 mg/L [facility] CBC with Auto Differentialon 07-10-2021 Absolute Eos # 0.18 [place] [facility] Absolute Immature Granulocyte 0.00 [facility] Absolute Lymph # 3.40 [facility] Absolute [place] # 0.72 [facility] Basophils (Bld) [#/Vol] 0.00 10*3/uL [facility] Basophils/100 WBC (Bld) 0 % 0 - 2 % [facility] Eosinophils/100 WBC (Bld) 1 % 1 - 4 % [facility] Hematocrit (Bld) [Volume fraction] 25.6 % Low 36.3 - 47.1 % [facility] Hemoglobin.gastrointest inal spec 1 Ql (Stl) 8.3 g/dL Low 11.9 - 15.1 g/dL [facility] Immature granulocytes/100 WBC (Bld) 0 % 0 [facility] Interpretation and review of laboratory results Abnormal [facility] Lymphocytes/100 WBC (Bld) 19 % Low 24 - 44 % [facility] MCH (RBC) [Entitic mass] 27.8 pg 25.2 - 33.5 pg [facility] MCHC (RBC) [Mass/Vol] 32.4 g/dL 28.4 - 34.8 g/dL [facility] MCV (RBC) [Entitic vol] 85.6 fL 82.6 - 102.9 fL [facility] Monocytes/100 WBC (Bld) 4 % 1 - 7 % [facility] Morphology Malachi (Bld) [Interp] ANISOCYTOSIS PRESENT [facility] NRBC Automated 0.0 0.0 per 100 WBC [facility] Platelet distribution width (Bld) [Ratio] 20.4 % High 11.8 - 14.4 % [facility] Platelet mean volume (Bld) [Entitic vol] 9.0 fL 8.1 - 13.5 fL [facility] Platelets (Bld) [#/Vol] 530 10*3/uL High [facility] RBC (Bld) [#/Vol] 2.99 10*6/uL Low 3.95 - 5.1 1 m/uL [facility] Seg Neutrophils 76 % High 36 - 66 % [facility] Segs Absolute 13.60 High [facility] WBC (Bld) [#/Vol] 17.9 10*3/uL High [facility] COVID-19, Rapidon 07-10-2021 SARS-CoV-2 (COVID-19) RNA CAL+probe Ql (Unsp spec) Not detected Not Detected [facility] Specimen Description .NASOPHARYNGEAL SWAB [facility] CT CERVICAL SPINE WO CONTRAS Ton 07-10-2021 [facility] RIS CONSOLIDATED [facility] RIS CONSOLIDATED [facility] Work Phone: Radiology Study observation (narrative) [facility] Work Phone: CT CERVICAL SPINE WO CONTRAS TOrdered By: Earl Jose F on 07-10-2021 [facility] Work Phone: Insert PICC lineon 2 [facility] Work Phone: Magnesiumon 07-10-2021 Magnesium [Mass/Vol] 1.8 mg/dL 1.6 - 2 .6 mg/dL [facility] No Panel Informationon 07-10 Interpretation and review of laboratory results Abnormal [facility] POC Glucose Fingerstickon Glucose [Mass/Vol] 137 mg/dL High 65 - 105 mg/dL [facility] Interpretation and review of laboratory results Abnormal [email or web address] [employer] Glucose [Mass/Vol] 77 mg/dL 65 - 105 mg/dL [facility] [employer] XR CERVICAL SPINE FLEXION AN D EXTENSIONon 07-10-2021 [facility] RIS CONSOLIDATED [facility] RIS CONSOLIDATED [facility] [employer] Work Phone: [facility] [employer] Work Phone: Radiology Study observation (narrative) [facility] [employer] Work Phone: Basic Metabolic Panel w/ Ref rafael to MGon 07-09-2021 Anion gap [Moles/Vol] 11 mmol/L 9 - 17 mmol/L [facility] [employer] Calcium [Mass/Vol] 7.7 mg/dL Low 8.6 - 10. 4 mg/dL [facility] [employer] Chloride [Moles/Vol] 109 mmol/L High 98 - 10 7 mmol/L [facility] [employer] CO2 [Moles/Vol] 20 mmol/L 20 - 31 mmol/L [facility] Creatinine [Mass/Vol] 0.81 mg/dL 0.50 - 0.90 mg/dL [facility] GFR >60 >60 mL/min [facility] [employer] GFR Non- >60 >60 mL/min [facility] [employer] GFR/1.73 sq M.predicted MDRD (S/P/Bld) [Vol rate/Area] [facility] [employer] Glucose [Mass/Vol] 133 mg/dL High 70 - 99 mg/dL [facility] [employer] Potassium [Moles/Vol] 3.9 mmol/L 3.7 - 5.3 mmol/L [facility] [employer] Sodium [Moles/Vol] 140 mmol/L 135 - 144 mmol/L [facility] [employer] Urea nitrogen (BldV) [Mass/Vol] 7 mg/dL 6 - 20 mg/dL [facility] [employer] C-Reactive Proteinon 022 CRP [Mass/Vol] 124.1 mg/L High 0.0 - 5.0 mg/L [facility] CBC with Auto Differentialon 07-09-2021 Absolute Eos # 0.40 [place] [facility] Absolute Immature Granulocyte 0.08 [facility] Absolute Lymph # 2.06 [facility] Absolute [place] # 0.48 [facility] Basophils (Bld) [#/Vol] 10*3/uL [facility] Basophils/100 WBC (Bld) 0 % 0 - 2 % [facility] Eosinophils/100 WBC (Bld) 4 % 1 - 4 % [facility] Hematocrit (Bld) [Volume fraction] 27.9 % Low 36.3 - 47.1 % [facility] Hemoglobin.gastrointest inal spec 1 Ql (Stl) 8.5 g/dL Low 11.9 - 15.1 g/dL [facility] Immature granulocytes/100 WBC (Bld) 1 % High 0 [facility] Interpretation and review of laboratory results Abnormal [facility] Lymphocytes/100 WBC (Bld) 18 % Low 24 - 43 % [facility] MCH (RBC) [Entitic mass] 27.3 pg 25.2 - 33.5 pg [facility] MCHC (RBC) [Mass/Vol] 30.5 g/dL 28.4 - 34.8 g/dL [facility] MCV (RBC) [Entitic vol] 89.7 fL 82.6 - 102.9 fL [facility] Monocytes/100 WBC (Bld) 4 % 3 - 12 % [facility] NRBC Automated 0.0 0.0 per 100 WBC [facility] Platelet distribution width (Bld) [Ratio] 19.9 % High 11.8 - 14.4 % [facility] Platelet mean volume (Bld) [Entitic vol] 8.9 fL 8.1 - 13.5 fL [facility] Platelets (Bld) [#/Vol] 434 10*3/uL [facility] RBC (Bld) [#/Vol] 3.11 10*6/uL Low 3.95 - 5.1 1 m/uL [facility] RBC (Bld) [#/Vol] ANISOCYTOSIS PRESENT [facility] Seg Neutrophils 73 % High 36 - 65 % [facility] Segs Absolute 8.48 High [facility] WBC (Bld) [#/Vol] 11.5 10*3/uL High [facility] COVID-19, Rapidon 07-09-2021 SARS-CoV-2 (COVID-19) RNA CAL+probe Ql (Unsp spec) Not detected Not Detected [facility] Specimen Description .NASOPHARYNGEAL SWAB [facility] No Panel Informationon 07-09 Interpretation and review of laboratory results Abnormal [facility] POC Glucose Fingerstickon Glucose [Mass/Vol] 101 mg/dL 65 - 105 mg/dL [facility] Glucose [Mass/Vol] 146 mg/dL High 65 - 105 mg/dL [facility] Interpretation and review of laboratory results Abnormal [facility] Glucose [Mass/Vol] 99 mg/dL 65 - 105 mg/dL [facility] Glucose [Mass/Vol] 138 mg/dL High 65 - 105 mg/dL [facility] Interpretation and review of laboratory results Abnormal [facility] Glucose [Mass/Vol] 171 mg/dL High 65 - 105 mg/dL [facility] Interpretation and review of laboratory results Abnormal [facility] Glucose [Mass/Vol] 279 mg/dL High 65 - 105 mg/dL [facility] Interpretation and review of laboratory results Abnormal [facility] Glucose [Mass/Vol] 59 mg/dL Low 65 - 105 mg/dL [facility] Interpretation and review of laboratory results Abnormal [facility] Glucose [Mass/Vol] 59 mg/dL Low 65 - 105 mg/dL [facility] Interpretation and review of laboratory results Abnormal [facility] Glucose [Mass/Vol] 58 mg/dL Low 65 - 105 mg/dL [facility] Interpretation and review of laboratory results Abnormal [facility] Glucose [Mass/Vol] 306 mg/dL High 65 - 105 mg/dL [facility] Interpretation and review of laboratory results Abnormal [facility] Basic Metabolic Panel w/ Ref rafael to MGon 07-08-2021 Anion gap [Moles/Vol] 10 mmol/L 9 - 17 mmol/L [facility] Calcium [Mass/Vol] 7.3 mg/dL Low 8.6 - 10. 4 mg/dL [facility] Chloride [Moles/Vol] 108 mmol/L High 98 - 10 7 mmol/L [facility] CO2 [Moles/Vol] 20 mmol/L 20 - 31 mmol/L [facility] Creatinine [Mass/Vol] 0.83 mg/dL 0.50 - 0.90 mg/dL [facility] GFR >60 >60 mL/min [facility] GFR Non- >60 >60 mL/min [facility] GFR/1.73 sq M.predicted MDRD (S/P/Bld) [Vol rate/Area] [facility] Glucose [Mass/Vol] 141 mg/dL High 70 - 99 mg/dL [facility] Interpretation and review of laboratory results Abnormal [facility] Potassium [Moles/Vol] 2.9 mmol/L Critically low 3.7 - 5.3 mmol/L [facility] Sodium [Moles/Vol] 138 mmol/L 135 - 144 mmol/L [facility] Urea nitrogen (BldV) [Mass/Vol] 7 mg/dL 6 - 20 mg/dL [facility] C-Reactive Proteinon 022 CRP [Mass/Vol] 131.5 mg/L High 0.0 - 5.0 mg/L [facility] Interpretation and review of laboratory results Abnormal [facility] CBC with Auto Differentialon 07-08-2021 Absolute Eos # 0.31 [facility] Absolute Immature Granulocyte 0.05 [facility] Absolute Lymph # 1.87 [facility] Absolute [place] # 0.37 [facility] Basophils (Bld) [#/Vol] 10*3/uL [facility] Basophils/100 WBC (Bld) 0 % 0 - 2 % [facility] Eosinophils/100 WBC (Bld) 3 % 1 - 4 % [facility] Hematocrit (Bld) [Volume fraction] 21.5 % Low 36.3 - 47.1 % [facility] Hemoglobin.gastrointest inal spec 1 Ql (Stl) 6.9 g/dL Critically low 11.9 - 15.1 g/dL [facility] Immature granulocytes/100 WBC (Bld) 0 % 0 [facility] Interpretation and review of laboratory results Abnormal [facility] Lymphocytes/100 WBC (Bld) 17 % Low 24 - 43 % [facility] MCH (RBC) [Entitic mass] 27.5 pg 25.2 - 33.5 pg [facility] MCHC (RBC) [Mass/Vol] 32.1 g/dL 28.4 - 34.8 g/dL [facility] MCV (RBC) [Entitic vol] 85.7 fL 82.6 - 102.9 fL [facility] Monocytes/100 WBC (Bld) 3 % 3 - 12 % [facility] NRBC Automated 0.0 0.0 per 100 WBC [facility] Platelet distribution width (Bld) [Ratio] 18.6 % High 11.8 - 14.4 % [facility] Platelet mean volume (Bld) [Entitic vol] 8.9 fL 8.1 - 13.5 fL [facility] Platelets (Bld) [#/Vol] 328 10*3/uL [facility] RBC (Bld) [#/Vol] 2.51 10*6/uL Low 3.95 - 5.1 1 m/uL [facility] RBC (Bld) [#/Vol] ANISOCYTOSIS PRESENT [facility] Seg Neutrophils 77 % High 36 - 65 % [facility] Segs Absolute 8.74 High [facility] WBC (Bld) [#/Vol] 11.4 10*3/uL High [facility] Culture, Urineon 05-22-2022 Bacteria identified Cx Nom (U) NO GROWTH [facility] Specimen Description .INDWELLING CATH URINE [facility] Bacteria identified Cx Nom (U) NO GROWTH [facility] Specimen Description .INDWELLING CATH URINE [facility] Hemoglobin and Hematocriton 07-08-2021 Hematocrit (Bld) [Volume fraction] 25.5 % Low 36.3 - 47.1 % [facility] Hemoglobin.gastrointest inal spec 1 Ql (Stl) 8.1 g/dL Low 11.9 - 15.1 g/dL [facility] Interpretation and review of laboratory results Abnormal [facility] MRI BRAIN W WO CONTRASTon [facility]PN RIS CONSOLIDATED [facility] RIS CONSOLIDATED [facility] Work Phone: MRI BRAIN W WO CONTRASTOrder ed By: Mai Villarreal on 07-08-2021 [facility] Work Phone: Magnesiumon 07-08-2021 Magnesium [Mass/Vol] 1.7 mg/dL 1.6 - 2 .6 mg/dL [facility] POC Glucose Fingerstickon Glucose [Mass/Vol] 139 mg/dL High 65 - 105 mg/dL [facility] Interpretation and review of laboratory results Abnormal [facility] Glucose [Mass/Vol] 140 mg/dL High 65 - 105 mg/dL [facility] Interpretation and review of laboratory results Abnormal [facility] Glucose [Mass/Vol] 192 mg/dL High 65 - 105 mg/dL [facility] Interpretation and review of laboratory results Abnormal [facility] Basic Metabolic Panel w/ Ref rafael to MGon 07-07-2021 Anion gap [Moles/Vol] 12 mmol/L 9 - 17 mmol/L [facility] Calcium [Mass/Vol] 7.8 mg/dL Low 8.6 - 10. 4 mg/dL [facility] Chloride [Moles/Vol] 106 mmol/L 98 - 10 7 mmol/L [facility] CO2 [Moles/Vol] 22 mmol/L 20 - 31 mmol/L [facility] Creatinine [Mass/Vol] 0.83 mg/dL 0.50 - 0.90 mg/dL [facility] GFR >60 >60 mL/min [facility] GFR Non- >60 >60 mL/min [facility] GFR/1.73 sq M.predicted MDRD (S/P/Bld) [Vol rate/Area] [facility] Glucose [Mass/Vol] 205 mg/dL High 70 - 99 mg/dL [facility] Potassium [Moles/Vol] 3.9 mmol/L 3.7 - 5.3 mmol/L [facility] Sodium [Moles/Vol] 140 mmol/L 135 - 144 mmol/L [facility] Urea nitrogen (BldV) [Mass/Vol] 8 mg/dL 6 - 20 mg/dL [facility] C-Reactive Proteinon 022 CRP [Mass/Vol] 141.9 mg/L High 0.0 - 5.0 mg/L [facility] CBC with Auto Differentialon 07-07-2021 Absolute Eos # <0.03 [facility] Absolute Immature Granulocyte 0.06 [facility] Absolute Lymph # 0.72 Low [facility] Absolute [place] # 0.51 [facility] Basophils (Bld) [#/Vol] 10*3/uL [facility] Basophils/100 WBC (Bld) 0 % 0 - 2 % [facility] Eosinophils/100 WBC (Bld) 0 % Low 1 - 4 % [facility] Hematocrit (Bld) [Volume fraction] 27.9 % Low 36.3 - 47.1 % [facility] Hemoglobin.gastrointest inal spec 1 Ql (Stl) 9.2 g/dL Low 11.9 - 15.1 g/dL [facility] Immature granulocytes/100 WBC (Bld) 1 % High 0 [facility] Interpretation and review of laboratory results Abnormal [facility] Lymphocytes/100 WBC (Bld) 7 % Low 24 - 43 % [facility] MCH (RBC) [Entitic mass] 27.5 pg 25.2 - 33.5 pg [facility] MCHC (RBC) [Mass/Vol] 33.0 g/dL 28.4 - 34.8 g/dL [facility] MCV (RBC) [Entitic vol] 83.5 fL 82.6 - 102.9 fL [facility] Monocytes/100 WBC (Bld) 5 % 3 - 12 % [facility] NRBC Automated 0.0 0.0 per 100 WBC [facility] Platelet distribution width (Bld) [Ratio] 17.2 % High 11.8 - 14.4 % [facility] Platelet mean volume (Bld) [Entitic vol] 9.1 fL 8.1 - 13.5 fL [facility] Platelets (Bld) [#/Vol] 372 10*3/uL [facility] RBC (Bld) [#/Vol] 3.34 10*6/uL Low 3.95 - 5.1 1 m/uL [facility] RBC (Bld) [#/Vol] ANISOCYTOSIS PRESENT [facility] Seg Neutrophils 88 % High 36 - 65 % [facility] Segs Absolute 9.77 High [facility] WBC (Bld) [#/Vol] 11.1 10*3/uL [facility] Microscopic Urinalysison Bacteria, UA MANY Abnormal None [facility] Casts UA 10 TO 20 HYALINE Reference range defined for non-centrifuged specimen. [facility] Epithelial Cells UA 10 TO 20 [facility] Interpretation and review of laboratory results Abnormal [facility] RBC, UA 20 TO 50 [facility] WBC, UA 10 TO 20 [facility] No Panel Informationon 07-07 Interpretation and review of laboratory results Abnormal [facility] POC Glucose Fingerstickon Glucose [Mass/Vol] 126 mg/dL High 65 - 105 mg/dL [facility] Interpretation and review of laboratory results Abnormal [facility] Glucose [Mass/Vol] 163 mg/dL High 65 - 105 mg/dL [facility] Interpretation and review of laboratory results Abnormal [facility] Glucose [Mass/Vol] 132 mg/dL High 65 - 105 mg/dL [facility] Interpretation and review of laboratory results Abnormal [facility] TYPE AND SCREENon 07-07-2021 ABO/Rh Positive [facility] Arm Band Number BE [id number] [facility] Blood Bank Blood Product Expiration Date [facility] Blood Bank ISBT Product Blood Type 6200 [facility] Blood Bank Unit Type and Rh Positive [facility] Blood product type Nom (BPU) Leukocyte Reduced Red Cell [facility] Blood product unit ID (Dose) [#] [id number] [facility] Crossmatch Result COMPATIBLE [facility] Dispense Status TRANSFUSED [facility] Expiration Date 07/09/2021,2359 [facility] Product Code Blood Bank [id number] [facility] Transfusion Status OK TO TRANSFUSE [facility] Unit Divison 0 [facility] Unit Issue Date/Time [id number] [facility] Urinalysis with Reflex to Cu ltureon 07-07-2021 Bilirubin Urine Negative NEGATIVE [facility] Color, UA Yellow Yellow [facility] Glucose, Ur 1+ Abnormal NEGATIVE [facility] Interpretation and review of laboratory results Abnormal [facility] Ketones Ql (U) TRACE Abnormal NEGATIVE [facility] Leukocyte esterase Test strip Ql (U) Negative NEGATIVE [facility] Nitrite, Urine Negative NEGATIVE [facility] pH, UA 5.5 [facility] Protein, UA Negative NEGATIVE [facility] Specific [place], UA 1.024 [facility] Turbidity UA Clear Clear [facility] Urine Hgb MODERATE Abnormal NEGATIVE [facility] Urobilinogen, Urine Normal Normal [facility] Basic Metabolic Panel w/ Ref rafael to MGon 07-06-2021 Anion gap [Moles/Vol] 8 mmol/L Low 9 - 17 mmol/L [facility] Calcium [Mass/Vol] 8.1 mg/dL Low 8.6 - 10. 4 mg/dL [facility] Chloride [Moles/Vol] 102 mmol/L 98 - 10 7 mmol/L [facility] CO2 [Moles/Vol] 23 mmol/L 20 - 31 mmol/L [facility] Creatinine [Mass/Vol] 0.9 mg/dL 0.50 - 0.90 mg/dL [facility] GFR >60 >60 mL/min [facility] GFR Non- >60 >60 mL/min [facility] GFR/1.73 sq M.predicted MDRD (S/P/Bld) [Vol rate/Area] [facility] Glucose [Mass/Vol] 138 mg/dL High 70 - 99 mg/dL [facility] Interpretation and review of laboratory results Abnormal [facility] Potassium [Moles/Vol] 3.2 mmol/L Low 3.7 - 5.3 mmol/L [facility] Sodium [Moles/Vol] 133 mmol/L Low 135 - 144 mmol/L [facility] Urea nitrogen (BldV) [Mass/Vol] 7 mg/dL 6 - 20 mg/dL [facility] Blood Gas, Arterialon 2021 Adarsh Test INFORMATION NOT PROVIDED [facility] Carboxyhemoglobin 1.1 % 0 - 5 % [facility] FIO2 100% [facility] HCO3 (Bld) [Moles/Vol] 22.7 mmol/L 22 - 27 mmol/L [facility] Oxygen saturation in Blood 99.6 % 94 - 100 % [facility] pCO2, Arterial 27.4 Low [facility] pH, Arterial 7.529 High [facility] pO2, Arterial 277.0 High [facility] Positive Base Excess, Art 0.5 mmol/L 0.0 - 2.0 mmol/L [facility] Pt Temp 37.0 [facility] C-Reactive Proteinon 022 CRP [Mass/Vol] 183.8 mg/L High 0.0 - 5.0 mg/L [facility] Interpretation and review of laboratory results Abnormal [facility] CBC with Auto Differentialon 07-06-2021 Absolute Eos # 0.25 [facility] Absolute Immature Granulocyte 0.04 [facility] Absolute Lymph # 1.52 [facility] Absolute [place] # 0.43 [facility] Basophils (Bld) [#/Vol] 10*3/uL [facility] Basophils/100 WBC (Bld) 0 % 0 - 2 % [facility] Eosinophils/100 WBC (Bld) 3 % 1 - 4 % [facility] Hematocrit (Bld) [Volume fraction] 27.5 % Low 36.3 - 47.1 % [facility] Hemoglobin.gastrointest inal spec 1 Ql (Stl) 8.5 g/dL Low 11.9 - 15.1 g/dL [facility] Immature granulocytes/100 WBC (Bld) 1 % High 0 [facility] Interpretation and review of laboratory results Abnormal [facility] Lymphocytes/100 WBC (Bld) 20 % Low 24 - 43 % [facility] MCH (RBC) [Entitic mass] 26.0 pg 25.2 - 33.5 pg [facility] MCHC (RBC) [Mass/Vol] 30.9 g/dL 28.4 - 34.8 g/dL [facility] MCV (RBC) [Entitic vol] 84.1 fL 82.6 - 102.9 fL [facility] Monocytes/100 WBC (Bld) 6 % 3 - 12 % [facility] NRBC Automated 0.0 0.0 per 100 WBC [facility] Platelet distribution width (Bld) [Ratio] 18.2 % High 11.8 - 14.4 % [facility] Platelet mean volume (Bld) [Entitic vol] 9.4 fL 8.1 - 13.5 fL [facility] Platelets (Bld) [#/Vol] 378 10*3/uL [facility] RBC (Bld) [#/Vol] 3.27 10*6/uL Low 3.95 - 5.1 1 m/uL [facility] RBC (Bld) [#/Vol] ANISOCYTOSIS PRESENT [facility] Seg Neutrophils 70 % High 36 - 65 % [facility] Segs Absolute 5.41 [facility] WBC (Bld) [#/Vol] 7.7 10*3/uL [facility] Calcium, Ionizedon 2 Calcium [Moles/Vol] 1.14 mmol/L 1.13 - 1 .33 mmol/L [facility] Calcium [Moles/Vol] 1.13 mmol/L 1.13 - 1 .33 mmol/L [facility] Chloride, Whole Bloodon 06-18 0-2021 Chloride [Moles/Vol] 109 mmol/L 98 - 11 0 mmol/L [facility] Culture, Blood 1on 2 Bacteria identified Cx Nom (Unsp spec) Positive Abnormal [facility] Bacteria identified Cx Nom (Unsp spec) DIRECT GRAM STAIN FROM BOTTLE: GRAM POSITIVE COCCI IN CLUSTERS [facility] Bacteria identified Cx Nom (Unsp spec) STAPHYLOCOCCUS AUREUS For susceptibility, refer to previous culture. Abnormal [facility] Bacteria identified Cx Nom (Unsp spec) (NOTE) Direct Gram Stain from bottle result called to and read back by: RICH Miranda 07/05/21 0115 [facility] Interpretation and review of laboratory results Abnormal [facility] Special Requests R HAND 10ML [facility] Specimen Description .BLOOD [facility] Bacteria identified Cx Nom (Unsp spec) Positive Abnormal [facility] Bacteria identified Cx Nom (Unsp spec) DIRECT GRAM STAIN FROM BOTTLE: GRAM POSITIVE COCCI IN CLUSTERS [facility] Bacteria identified Cx Nom (Unsp spec) STAPHYLOCOCCUS AUREUS This isolate is methicillin susceptible. Abnormal [facility] Bacteria identified Cx Nom (Unsp spec) (NOTE) Direct Gram Stain from bottle result called to and read back by: RICH Miranda RN AT 0020 ON 07/05/21 [facility] Interpretation and review of laboratory results Abnormal [facility] Special Requests L HAND 20ML [facility] Specimen Description .BLOOD [facility] FLUORO FOR SURGICAL PROCEDUR ESon 07-06-2021 [facility] RIS CONSOLIDATED Glucose, Whole Bloodon 07-06 Glucose [Mass/Vol] 131 mg/dL High 65 - 105 mg/dL [facility] Magnesiumon 07-06-2021 Magnesium [Mass/Vol] 2.3 mg/dL 1.6 - 2 .6 mg/dL [facility] No Panel Informationon 07-06 [facility] Interpretation and review of laboratory results Abnormal [facility] OPEN HEART PANELon Adarsh Test INFORMATION NOT PROVIDED [facility] Carboxyhemoglobin 0.8 % 0 - 5 % [facility] Chloride [Moles/Vol] 108 mmol/L 98 - 11 0 mmol/L [facility] FIO2 56% [facility] Glucose [Mass/Vol] 207 mg/dL High 65 - 105 mg/dL [facility] HCO3 (Bld) [Moles/Vol] 21.4 mmol/L Low 22 - 27 mmol/L [facility] Hematocrit (Bld) [Volume fraction] 30.6 % Low 36.3 - 47.1 % [facility] Hemoglobin.gastrointest inal spec 1 Ql (Stl) 9.9 Low [facility] Interpretation and review of laboratory results Abnormal [facility] Negative Base Excess, Art 2.3 mmol/L High 0.0 - 2.0 mmol/L [facility] Oxygen saturation in Blood 99.4 % 94 - 100 % [facility] pCO2, Arterial 34.8 [facility] pH, Arterial 7.406 [facility] pO2, Arterial 279.0 High [facility] Potassium [Moles/Vol] 3.7 mmol/L 3.6 - 5.0 mmol/L [facility] Pt Temp 35.9 [facility] Sodium [Moles/Vol] 140 mmol/L 136 - 145 mmol/L [facility] Open Heart H&Hon 07-06-2021 Hematocrit (Bld) [Volume fraction] 21.0 % Low 36.3 - 47.1 % [facility] Hemoglobin.gastrointest inal spec 1 Ql (Stl) 6.7 Critically low [facility] POC Glucose Fingerstickon Glucose [Mass/Vol] 192 mg/dL High 65 - 105 mg/dL [facility] Interpretation and review of laboratory results Abnormal [facility] Glucose [Mass/Vol] 136 mg/dL High 65 - 105 mg/dL [facility] Interpretation and review of laboratory results Abnormal [facility] Glucose [Mass/Vol] 132 mg/dL High 65 - 105 mg/dL [facility] Interpretation and review of laboratory results Abnormal [facility] Potassium, Whole Bloodon Potassium [Moles/Vol] 3.6 mmol/L 3.6 - 5.0 mmol/L [facility] Sodium, Whole Bloodon 2021 Sodium [Moles/Vol] 140 mmol/L 136 - 145 mmol/L [facility] Basic Metabolic Panel w/ Ref rafael to MGon 07-05-2021 Anion gap [Moles/Vol] 10 mmol/L 9 - 17 mmol/L [facility] Calcium [Mass/Vol] 8.4 mg/dL Low 8.6 - 10. 4 mg/dL [facility] Chloride [Moles/Vol] 101 mmol/L 98 - 10 7 mmol/L [facility] CO2 [Moles/Vol] 27 mmol/L 20 - 31 mmol/L [facility] Creatinine [Mass/Vol] 0.79 mg/dL 0.50 - 0.90 mg/dL [facility] GFR >60 >60 mL/min [facility] GFR Non- >60 >60 mL/min [facility] GFR/1.73 sq M.predicted MDRD (S/P/Bld) [Vol rate/Area] [facility] Glucose [Mass/Vol] 136 mg/dL High 70 - 99 mg/dL [facility] Interpretation and review of laboratory results Abnormal [facility] Potassium [Moles/Vol] 3.1 mmol/L Low 3.7 - 5.3 mmol/L [facility] Sodium [Moles/Vol] 138 mmol/L 135 - 144 mmol/L [facility] Urea nitrogen (BldV) [Mass/Vol] 7 mg/dL 6 - 20 mg/dL [facility] C-Reactive Proteinon 022 CRP [Mass/Vol] 186.3 mg/L High 0.0 - 5.0 mg/L [facility] Interpretation and review of laboratory results Abnormal [facility] CBC with Auto Differentialon 07-05-2021 Absolute Eos # 0.15 [place] [facility] Absolute Immature Granulocyte 0.06 [facility] Absolute Lymph # 2.56 [facility] Absolute [place] # 0.43 [facility] Basophils (Bld) [#/Vol] 10*3/uL [facility] Basophils/100 WBC (Bld) 0 % 0 - 2 % [facility] Eosinophils/100 WBC (Bld) 2 % 1 - 4 % [facility] Hematocrit (Bld) [Volume fraction] 24.6 % Low 36.3 - 47.1 % [facility] Hemoglobin.gastrointest inal spec 1 Ql (Stl) 7.9 g/dL Low 11.9 - 15.1 g/dL [facility] Immature granulocytes/100 WBC (Bld) 1 % High 0 [facility] Interpretation and review of laboratory results Abnormal [facility] Lymphocytes/100 WBC (Bld) 26 % 24 - 43 % [facility] MCH (RBC) [Entitic mass] 26.5 pg 25.2 - 33.5 pg [facility] MCHC (RBC) [Mass/Vol] 32.1 g/dL 28.4 - 34.8 g/dL [facility] MCV (RBC) [Entitic vol] 82.6 fL 82.6 - 102.9 fL [facility] Monocytes/100 WBC (Bld) 4 % 3 - 12 % [facility] NRBC Automated 0.0 0.0 per 100 WBC [facility] Platelet distribution width (Bld) [Ratio] 17.5 % High 11.8 - 14.4 % [facility] Platelet mean volume (Bld) [Entitic vol] 9.7 fL 8.1 - 13.5 fL [facility] Platelets (Bld) [#/Vol] 341 10*3/uL [facility] RBC (Bld) [#/Vol] 2.98 10*6/uL Low 3.95 - 5.1 1 m/uL [facility] RBC (Bld) [#/Vol] ANISOCYTOSIS PRESENT [facility] Seg Neutrophils 68 % High 36 - 65 % [facility] Segs Absolute 6.79 [facility] WBC (Bld) [#/Vol] 10.0 10*3/uL [facility] Culture, Blood 1on 2 Bacteria identified Cx Nom (Unsp spec) Positive Abnormal [facility] Bacteria identified Cx Nom (Unsp spec) DIRECT GRAM STAIN FROM BOTTLE: GRAM POSITIVE COCCI IN CLUSTERS [facility] Bacteria identified Cx Nom (Unsp spec) STAPHYLOCOCCUS AUREUS This isolate is methicillin susceptible. Abnormal [facility] Bacteria identified Cx Nom (Unsp spec) (NOTE) Direct Gram Stain from bottle result called to and read back by: VIRGIE Parker AT 0225 ON 07/04/21 [facility] Interpretation and review of laboratory results Abnormal [facility] Special Requests LT HAND 2ML [facility] Specimen Description .BLOOD [facility] FL MODIFIED BARIUM SWALLOW W VIDEOon 07-05-2021 MH[facility] RIS CONSOLIDATED [facility] RIS CONSOLIDATED [facility] Work Phone: [facility] Work Phone: Radiology Study observation (narrative) [facility] Work Phone: MRI BRAIN W WO CONTRASTon Radiology Study observation (narrative) ARASELI WOLF [employer] Work Phone: MRI CERVICAL SPINE W WO CONT RASTon 07-05-2021 [facility] RIS CONSOLIDATED [facility] RIS CONSOLIDATED [facility] Work Phone: MRI CERVICAL SPINE W WO CONT RASTOrdered By: Fredi Ramirez on 07-05-2021 [employer] Work Phone: Magnesiumon 07-05-2021 Magnesium [Mass/Vol] 1.9 mg/dL 1.6 - 2 .6 mg/dL [facility] Myelin Basic Protein, CSFon 07-05-2021 [facility] Basic Protein, CSF 3.3 ng/mL 0.00 - 5.50 ng/mL [facility] POC Glucose Fingerstickon Glucose [Mass/Vol] 102 mg/dL 65 - 105 mg/dL [facility] Glucose [Mass/Vol] 185 mg/dL High 65 - 105 mg/dL [facility] [employer] Interpretation and review of laboratory results Abnormal [facility] Glucose [Mass/Vol] 134 mg/dL High 65 - 105 mg/dL [facility] Interpretation and review of laboratory results Abnormal [facility] Glucose [Mass/Vol] 147 mg/dL High 65 - 105 mg/dL [facility] [employer] Interpretation and review of laboratory results Abnormal [facility] Potassiumon 07-05-2021 Potassium [Moles/Vol] 3.8 mmol/L 3.7 - 5.3 mmol/L [facility] [employer] [facility] Basic Metabolic Panel w/ Ref rafael to MGon 07-04-2021 Anion gap [Moles/Vol] 10 mmol/L 9 - 17 mmol/L [facility] [employer] Calcium [Mass/Vol] 8.0 mg/dL Low 8.6 - 10. 4 mg/dL [facility] Chloride [Moles/Vol] 102 mmol/L 98 - 10 7 mmol/L [facility] CO2 [Moles/Vol] 26 mmol/L 20 - 31 mmol/L [facility] Creatinine [Mass/Vol] 0.72 mg/dL 0.50 - 0.90 mg/dL [facility] GFR >60 >60 mL/min [facility] GFR Non- >60 >60 mL/min [facility] GFR/1.73 sq M.predicted MDRD (S/P/Bld) [Vol rate/Area] [facility] Glucose [Mass/Vol] 122 mg/dL High 70 - 99 mg/dL [facility] Interpretation and review of laboratory results Abnormal [facility] Potassium [Moles/Vol] 3.5 mmol/L Low 3.7 - 5.3 mmol/L [facility] Sodium [Moles/Vol] 138 mmol/L 135 - 144 mmol/L [facility] Urea nitrogen (BldV) [Mass/Vol] 8 mg/dL 6 - 20 mg/dL [facility] C-Reactive Proteinon 022 CRP [Mass/Vol] 191.8 mg/L High 0.0 - 5.0 mg/L [facility] Interpretation and review of laboratory results Abnormal [facility] CBC with Auto Differentialon 07-04-2021 Absolute Eos # 0.18 [place] [facility] Absolute Immature Granulocyte 0.05 [facility] Absolute Lymph # 2.24 [facility] Absolute [place] # 0.55 [facility] Basophils (Bld) [#/Vol] 10*3/uL B ON [facility] Basophils/100 WBC (Bld) 0 % 0 - 2 % B ON [facility] Eosinophils/100 WBC (Bld) 2 % 1 - 4 % [facility] Hematocrit (Bld) [Volume fraction] 22.8 % Low 36.3 - 47.1 % [facility] Hemoglobin.gastrointest inal spec 1 Ql (Stl) 7.4 g/dL Low 11.9 - 15.1 g/dL [facility] Immature granulocytes/100 WBC (Bld) 1 % High 0 [facility] Interpretation and review of laboratory results Abnormal [facility] Lymphocytes/100 WBC (Bld) 22 % Low 24 - 43 % [facility] MCH (RBC) [Entitic mass] 26.5 pg 25.2 - 33.5 pg [facility] MCHC (RBC) [Mass/Vol] 32.5 g/dL 28.4 - 34.8 g/dL [facility] MCV (RBC) [Entitic vol] 81.7 fL Low 82.6 - 102.9 fL [facility] Monocytes/100 WBC (Bld) 5 % 3 - 12 % [facility] ON [facility] NRBC Automated 0.0 0.0 per 100 WBC [facility] Platelet distribution width (Bld) [Ratio] 16.9 % High 11.8 - 14.4 % [facility] Platelet mean volume (Bld) [Entitic vol] 9.0 fL 8.1 - 13.5 fL [facility] Platelets (Bld) [#/Vol] 231 10*3/uL [facility] RBC (Bld) [#/Vol] 2.79 10*6/uL Low 3.95 - 5.1 1 m/uL [facility] RBC (Bld) [#/Vol] ANISOCYTOSIS PRESENT [facility] Seg Neutrophils 71 % High 36 - 65 % [facility] Segs Absolute 7.32 [facility] WBC (Bld) [#/Vol] 10.4 10*3/uL [facility] Culture, Blood 1on 05202 2 Bacteria identified Cx Nom (Unsp spec) Positive Abnormal [facility] [facility] Bacteria identified Cx Nom (Unsp spec) DIRECT GRAM STAIN FROM BOTTLE: GRAM POSITIVE COCCI IN [facility] Bacteria identified Cx Nom (Unsp spec) Staphylococcus aureus Detected: mecA/C and MREJ Not Detected Methodology- Polymerase Chain Reaction (PCR) [facility] Bacteria identified Cx Nom (Unsp spec) STAPHYLOCOCCUS AUREUS Abnormal [facility] Bacteria identified Cx Nom (Unsp spec) (NOTE) Direct Gram Stain from bottle and Polymerase Chain Reaction (PCR) results called to and read back by: VIRGIE Joaquin on 07/03/21 at 7:45 [facility] Interpretation and review of laboratory results Abnormal [facility] Special Requests L HAND 1 ML [facility] Specimen Description .BLOOD [facility] MISCELLANEOUS TESTINGon 06-17 Send Out Report PERFORMED AT [place] [employer] [facility] Test Name [place] ENC2 CSF [facility] MRI CERVICAL SPINE W WO CONT RASTon 07-04-2021 Radiology Study observation (narrative) [facility] [employer] Work Phone: Magnesiumon 07-04-2021 Magnesium [Mass/Vol] 1.8 mg/dL 1.6 - 2 .6 mg/dL [facility] POC Glucose Fingerstickon Glucose [Mass/Vol] 113 mg/dL High 65 - 105 mg/dL [facility] Interpretation and review of laboratory results Abnormal [facility] Glucose [Mass/Vol] 188 mg/dL High 65 - 105 mg/dL [facility] Interpretation and review of laboratory results Abnormal [facility] Glucose [Mass/Vol] 118 mg/dL High 65 - 105 mg/dL [facility] Interpretation and review of laboratory results Abnormal [facility] Glucose [Mass/Vol] 135 mg/dL High 65 - 105 mg/dL [facility] Interpretation and review of laboratory results Abnormal [facility] Basic Metabolic Panel w/ Ref rafael to MGon 07-03-2021 Anion gap [Moles/Vol] 11 mmol/L 9 - 17 mmol/L [facility] Calcium [Mass/Vol] 8.3 mg/dL Low 8.6 - 10. 4 mg/dL [facility] Chloride [Moles/Vol] 98 mmol/L 98 - 10 7 mmol/L [facility] CO2 [Moles/Vol] 25 mmol/L 20 - 31 mmol/L [facility] Creatinine [Mass/Vol] 0.81 mg/dL 0.50 - 0.90 mg/dL [facility] GFR >60 >60 mL/min [facility] GFR Non- >60 >60 mL/min [facility] GFR/1.73 sq M.predicted MDRD (S/P/Bld) [Vol rate/Area] [facility] Glucose [Mass/Vol] 108 mg/dL High 70 - 99 mg/dL [facility] Interpretation and review of laboratory results Abnormal [facility] Potassium [Moles/Vol] 2.9 mmol/L Critically low 3.7 - 5.3 mmol/L [facility] Sodium [Moles/Vol] 134 mmol/L Low 135 - 144 mmol/L [facility] Urea nitrogen (BldV) [Mass/Vol] 7 mg/dL 6 - 20 mg/dL [facility] C-Reactive Proteinon 022 CRP [Mass/Vol] 166.3 mg/L High 0.0 - 5.0 mg/L [facility] Interpretation and review of laboratory results Abnormal [facility] CBC with Auto Differentialon 07-03-2021 Absolute Eos # 0.19 [place] [facility] Absolute Immature Granulocyte 0.09 [facility] Absolute Lymph # 2.40 [facility] Absolute [place] # 0.64 [facility] Basophils (Bld) [#/Vol] 10*3/uL B ON [facility] Basophils/100 WBC (Bld) 0 % 0 - 2 % B ON [facility] Eosinophils/100 WBC (Bld) 1 % 1 - 4 % [facility] Hematocrit (Bld) [Volume fraction] 26.1 % Low 36.3 - 47.1 % [facility] Hemoglobin.gastrointest inal spec 1 Ql (Stl) 8.4 g/dL Low 11.9 - 15.1 g/dL [facility] Immature granulocytes/100 WBC (Bld) 1 % High 0 [facility] Interpretation and review of laboratory results Abnormal [facility] Lymphocytes/100 WBC (Bld) 18 % Low 24 - 43 % [facility] MCH (RBC) [Entitic mass] 26.1 pg 25.2 - 33.5 pg [facility] MCHC (RBC) [Mass/Vol] 32.2 g/dL 28.4 - 34.8 g/dL [facility] MCV (RBC) [Entitic vol] 81.1 fL Low 82.6 - 102.9 fL [facility] Monocytes/100 WBC (Bld) 5 % 3 - 12 % B ON [facility] NRBC Automated 0.0 0.0 per 100 WBC [facility] Platelet distribution width (Bld) [Ratio] 16.5 % High 11.8 - 14.4 % [facility] Platelet mean volume (Bld) [Entitic vol] 8.8 fL 8.1 - 13.5 fL [facility] Platelets (Bld) [#/Vol] 261 10*3/uL [facility] RBC (Bld) [#/Vol] 3.22 10*6/uL Low 3.95 - 5.1 1 m/uL [facility] RBC (Bld) [#/Vol] ANISOCYTOSIS PRESENT [facility] Seg Neutrophils 75 % High 36 - 65 % [facility] Segs Absolute 10.31 High [facility] WBC (Bld) [#/Vol] 13.6 10*3/uL High [facility] Culture, Blood 1on 2 Bacteria identified Cx Nom (Unsp spec) Positive Abnormal [facility] Bacteria identified Cx Nom (Unsp spec) DIRECT GRAM STAIN FROM BOTTLE: GRAM POSITIVE COCCI IN [facility] Bacteria identified Cx Nom (Unsp spec) STAPHYLOCOCCUS AUREUS This isolate is methicillin susceptible. Abnormal [facility] Bacteria identified Cx Nom (Unsp spec) (NOTE) Direct Gram Stain from bottle result called to and read back by: VIRGIE Noland at 2200 on 07.01.2021 [facility] Interpretation and review of laboratory results Abnormal [facility] Specimen Description .BLOOD [facility] ECHO Complete 2D W Doppler W Coloron 07-03-2021 [facility] STV CPACS [facility] Work Phone: ECHO Complete 2D W Doppler W ColorOrdered By: Sintia Salazar on 07-03-2021 [facility] [employer] Work Phone: FL MODIFIED BARIUM SWALLOW W VIDEOon 07-03-2021 [facility] RIS CONSOLIDATED [facility] RIS CONSOLIDATED [facility] [employer] Work Phone: Radiology Study observation (narrative) ARASELI WOLF [employer] Work Phone: [place] MODIFIED BARIUM SWALLOW W VIDEOOrdered By: Rufus Burnette on 07-03-2021 [facility] [employer] Work Phone: Hemoglobin and Hematocriton 07-03-2021 Hematocrit (Bld) [Volume fraction] 24.2 % Low 36.3 - 47.1 % [facility] [employer] Hemoglobin.gastrointest inal spec 1 Ql (Stl) 7.8 g/dL Low 11.9 - 15.1 g/dL [facility] [employer] Interpretation and review of laboratory results Abnormal [facility] [employer] [facility] [employer] Herpes simplex virus PCRon 0 07-03-2021 HSV, PCR Not detected [facility] [employer] [facility] [employer] Magnesiumon 07-03-2021 Magnesium [Mass/Vol] 2.0 mg/dL 1.6 - 2 .6 mg/dL [facility] [employer] [facility] [employer] NM BONE SCAN 3 PHASEon 07-03 [facility] RIS CONSOLIDATED [facility] RIS CONSOLIDATED [facility] [employer] Work Phone: Radiology Study observation (narrative) ARASELI WOLF [employer] Work Phone: NM BONE SCAN 3 PHASEOrdered By: Mark Anthony Duke on 07-03-2021 [facility] Work Phone: POC Glucose Fingerstickon Glucose [Mass/Vol] 146 mg/dL High 65 - 105 mg/dL [facility] [employer] Interpretation and review of laboratory results Abnormal [facility] Glucose [Mass/Vol] 108 mg/dL High 65 - 105 mg/dL [facility] Interpretation and review of laboratory results Abnormal [facility] Glucose [Mass/Vol] 168 mg/dL High 65 - 105 mg/dL [facility] Interpretation and review of laboratory results Abnormal [facility] Glucose [Mass/Vol] 111 mg/dL High 65 - 105 mg/dL [facility] Interpretation and review of laboratory results Abnormal [facility] Potassiumon 07-03-2021 Interpretation and review of laboratory results Abnormal [facility] Potassium [Moles/Vol] 3.4 mmol/L Low 3.7 - 5.3 mmol/L [facility] XR CERVICAL SPINE FLEXION AN D EXTENSIONon 07-03-2021 [facility] RIS CONSOLIDATED PN RIS CONSOLIDATED [facility] Work Phone: Radiology Study observation (narrative) [facility] [employer] Work Phone: XR CERVICAL SPINE FLEXION AN D EXTENSIONOrdered By: Chanda Garland on 07-03-2021 [facility] [employer] Work Phone: Basic Metabolic Panel w/ Ref rafael to MGon 07-02-2021 Anion gap [Moles/Vol] 11 mmol/L 9 - 17 mmol/L [facility] Calcium [Mass/Vol] 8.0 mg/dL Low 8.6 - 10. 4 mg/dL [facility] Chloride [Moles/Vol] 98 mmol/L 98 - 10 7 mmol/L [facility] CO2 [Moles/Vol] 25 mmol/L 20 - 31 mmol/L [facility] Creatinine [Mass/Vol] 0.66 mg/dL 0.50 - 0.90 mg/dL [facility] GFR >60 >60 mL/min [facility] GFR Non- >60 >60 mL/min [facility] GFR/1.73 sq M.predicted MDRD (S/P/Bld) [Vol rate/Area] [facility] Glucose [Mass/Vol] 67 mg/dL Low 70 - 99 mg/dL [facility] Interpretation and review of laboratory results Abnormal [facility] Potassium [Moles/Vol] 2.9 mmol/L Critically low 3.7 - 5.3 mmol/L [facility] Sodium [Moles/Vol] 134 mmol/L Low 135 - 144 mmol/L [facility] Urea nitrogen (BldV) [Mass/Vol] 9 mg/dL 6 - 20 mg/dL [facility] C-Reactive Proteinon 022 CRP [Mass/Vol] 61.4 mg/L High 0.0 - 5.0 mg/L [facility] Interpretation and review of laboratory results Abnormal [facility] CBC with Auto Differentialon 07-02-2021 Absolute Eos # 0.36 [place] [facility] Absolute Immature Granulocyte 0.11 [facility] Absolute Lymph # 3.45 [facility] Absolute [place] # 0.69 [facility] Basophils (Bld) [#/Vol] 10*3/uL B ON [facility] Basophils/100 WBC (Bld) 0 % 0 - 2 % B ON [facility] Eosinophils/100 WBC (Bld) 2 % 1 - 4 % [facility] Hematocrit (Bld) [Volume fraction] 28.2 % Low 36.3 - 47.1 % [facility] Hemoglobin.gastrointest inal spec 1 Ql (Stl) 9.0 g/dL Low 11.9 - 15.1 g/dL [facility] Immature granulocytes/100 WBC (Bld) 1 % High 0 [facility] Interpretation and review of laboratory results Abnormal [facility] Lymphocytes/100 WBC (Bld) 21 % Low 24 - 43 % [facility] MCH (RBC) [Entitic mass] 25.9 pg 25.2 - 33.5 pg [facility] MCHC (RBC) [Mass/Vol] 31.9 g/dL 28.4 - 34.8 g/dL [facility] MCV (RBC) [Entitic vol] 81.3 fL Low 82.6 - 102.9 fL [facility] Monocytes/100 WBC (Bld) 4 % 3 - 12 % B ON [facility] NRBC Automated 0.0 0.0 per 100 WBC [facility] Platelet distribution width (Bld) [Ratio] 16.3 % High 11.8 - 14.4 % [facility] Platelet mean volume (Bld) [Entitic vol] 8.8 fL 8.1 - 13.5 fL [facility] Platelets (Bld) [#/Vol] 299 10*3/uL [facility] RBC (Bld) [#/Vol] 3.47 10*6/uL Low 3.95 - 5.1 1 m/uL [facility] RBC (Bld) [#/Vol] ANISOCYTOSIS PRESENT [facility] Seg Neutrophils 72 % High 36 - 65 % [facility] Segs Absolute 12.06 High [facility] WBC (Bld) [#/Vol] 16.7 10*3/uL High [facility] Culture, Blood 1on 2 Bacteria identified Cx Nom (Unsp spec) Positive Abnormal [facility] Bacteria identified Cx Nom (Unsp spec) DIRECT GRAM STAIN FROM BOTTLE: GRAM POSITIVE COCCI IN CL[facility]ERS [facility] Bacteria identified Cx Nom (Unsp spec) STAPHYLOCOCCUS AUREUS This isolate is methicillin susceptible. Abnormal [facility] Bacteria identified Cx Nom (Unsp spec) (NOTE) Direct Gram Stain from bottle result called to and read back by: VIRGIE Ferraro AT 2058 ON 06/30/21 [facility] Interpretation and review of laboratory results Abnormal [facility] Special Requests LT HAND 9ML [facility] Specimen Description .BLOOD [facility] Hemoglobin and Hematocriton 07-02-2021 Hematocrit (Bld) [Volume fraction] 24.8 % Low 36.3 - 47.1 % [facility] Hemoglobin.gastrointest inal spec 1 Ql (Stl) 8.1 g/dL Low 11.9 - 15.1 g/dL [facility] Interpretation and review of laboratory results Abnormal [facility] Hematocrit (Bld) [Volume fraction] 29.0 % Low 36.3 - 47.1 % [facility] Hemoglobin.gastrointest inal spec 1 Ql (Stl) 9.1 g/dL Low 11.9 - 15.1 g/dL [facility] Interpretation and review of laboratory results Abnormal [facility] Magnesiumon 07-02-2021 Magnesium [Mass/Vol] 2.3 mg/dL 1.6 - 2 .6 mg/dL [facility] POC Glucose Fingerstickon Glucose [Mass/Vol] 122 mg/dL High 65 - 105 mg/dL [facility] Interpretation and review of laboratory results Abnormal [facility] Glucose [Mass/Vol] 105 mg/dL 65 - 105 mg/dL [facility] Glucose [Mass/Vol] 113 mg/dL High 65 - 105 mg/dL [facility] Interpretation and review of laboratory results Abnormal [facility] Glucose [Mass/Vol] 78 mg/dL 65 - 105 mg/dL [facility] Glucose [Mass/Vol] 111 mg/dL High 65 - 105 mg/dL [facility] Interpretation and review of laboratory results Abnormal [facility] Potassiumon 07-02-2021 Interpretation and review of laboratory results Abnormal [facility] Potassium [Moles/Vol] 3.5 mmol/L Low 3.7 - 5.3 mmol/L [facility] Interpretation and review of laboratory results Abnormal [facility] Potassium [Moles/Vol] 3.5 mmol/L Low 3.7 - 5.3 mmol/L [facility] Basic Metabolic Panel w/ Ref rafael to MGon 07-01-2021 Anion gap [Moles/Vol] 10 mmol/L 9 - 17 mmol/L [facility] Calcium [Mass/Vol] 8.2 mg/dL Low 8.6 - 10. 4 mg/dL [facility] Chloride [Moles/Vol] 102 mmol/L 98 - 10 7 mmol/L [facility] CO2 [Moles/Vol] 25 mmol/L 20 - 31 mmol/L [facility] Creatinine [Mass/Vol] 0.97 mg/dL High 0.50 - 0.90 mg/dL [facility] GFR >60 >60 mL/min [facility] GFR Non- 59 mL/min Low >60 [facility] GFR/1.73 sq M.predicted MDRD (S/P/Bld) [Vol rate/Area] [facility] Glucose [Mass/Vol] 117 mg/dL High 70 - 99 mg/dL [facility] Interpretation and review of laboratory results Abnormal [facility] Potassium [Moles/Vol] 2.2 mmol/L Critically low 3.7 - 5.3 mmol/L [facility] Sodium [Moles/Vol] 137 mmol/L 135 - 144 mmol/L [facility] Urea nitrogen (BldV) [Mass/Vol] 18 mg/dL 6 - 20 mg/dL [facility] C-Reactive Proteinon 022 CRP [Mass/Vol] 38.5 mg/L High 0.0 - 5.0 mg/L [facility] Interpretation and review of laboratory results Abnormal [facility] CBC with Auto Differentialon 07-01-2021 Absolute Eos # 0.00 [facility] Absolute Immature Granulocyte 0.00 [facility] Absolute Lymph # 2.14 [facility] Absolute [place] # 0.76 [facility] Basophils (Bld) [#/Vol] 0.00 10*3/uL [facility] Basophils/100 WBC (Bld) 0 % 0 - 2 % [facility] Eosinophils/100 WBC (Bld) 0 % Low 1 - 4 % [facility] Hematocrit (Bld) [Volume fraction] 28.4 % Low 36.3 - 47.1 % [facility] Hemoglobin.gastrointest inal spec 1 Ql (Stl) 9.0 g/dL Low 11.9 - 15.1 g/dL [facility] Immature granulocytes/100 WBC (Bld) 0 % 0 [facility] Interpretation and review of laboratory results Abnormal [facility] Lymphocytes/100 WBC (Bld) 17 % Low 24 - 44 % [facility] MCH (RBC) [Entitic mass] 26.2 pg 25.2 - 33.5 pg [facility] MCHC (RBC) [Mass/Vol] 31.7 g/dL 28.4 - 34.8 g/dL [facility] MCV (RBC) [Entitic vol] 82.8 fL 82.6 - 102.9 fL [facility] Monocytes/100 WBC (Bld) 6 % 1 - 7 % [facility] Morphology Malachi (Bld) [Interp] ANISOCYTOSIS PRESENT [facility] NRBC Automated 0.0 0.0 per 100 WBC [facility] Platelet distribution width (Bld) [Ratio] 16.2 % High 11.8 - 14.4 % [facility] Platelet mean volume (Bld) [Entitic vol] 8.8 fL 8.1 - 13.5 fL [facility] Platelets (Bld) [#/Vol] 284 10*3/uL [facility] RBC (Bld) [#/Vol] 3.43 10*6/uL Low 3.95 - 5.1 1 m/uL [facility] Seg Neutrophils 77 % High 36 - 66 % [facility] Segs Absolute 9.70 High [facility] WBC (Bld) [#/Vol] 12.6 10*3/uL High [facility] Culture, CSFon 07-01-2021 Bacteria identified Cx Nom (Unsp spec) NO GROWTH 3 DAYS [facility] Direct Exam NO NEUTROPHILS SEEN [facility] Direct Exam NO ORGANISMS SEEN [facility] Direct Exam Gram stain made from cytocentrifuged specimen. Organisms and cells will be concentrated. [facility] Specimen Description .CSF [facility] Hemoglobin and Hematocriton 07-01-2021 Hematocrit (Bld) [Volume fraction] 27.2 % Low 36.3 - 47.1 % [facility] Hemoglobin.gastrointest inal spec 1 Ql (Stl) 8.8 g/dL Low 11.9 - 15.1 g/dL [facility] Interpretation and review of laboratory results Abnormal [facility] Hematocrit (Bld) [Volume fraction] 26.7 % Low 36.3 - 47.1 % [facility] Hemoglobin.gastrointest inal spec 1 Ql (Stl) 8.6 g/dL Low 11.9 - 15.1 g/dL [facility] Interpretation and review of laboratory results Abnormal [facility] Lyme Disease AB, CSFon 07-01 B burgdorferi Ab,CSF 0.02 <=0.99 CALLUM [facility] Magnesiumon 07-01-2021 Magnesium [Mass/Vol] 1.9 mg/dL 1.6 - 2 .6 mg/dL [facility] Magnesium [Mass/Vol] 2.0 mg/dL 1.6 - 2 .6 mg/dL [facility] Oligoclonal Bandson 07-02-19 22 CSF Isoelectric Focusing Interpretation See Note [facility] Oligo Bands Negative [facility] Oligoclonal Bands Number Matching [facility] POC Glucose Fingerstickon Glucose [Mass/Vol] 84 mg/dL 65 - 105 mg/dL [facility] Glucose [Mass/Vol] 104 mg/dL 65 - 105 mg/dL [facility] Glucose [Mass/Vol] 65 mg/dL 65 - 105 mg/dL [facility] Glucose [Mass/Vol] 107 mg/dL High 65 - 105 mg/dL [facility] Interpretation and review of laboratory results Abnormal [facility] Glucose [Mass/Vol] 115 mg/dL High 65 - 105 mg/dL [facility] Interpretation and review of laboratory results Abnormal [facility] Potassiumon 07-01-2021 Interpretation and review of laboratory results Abnormal [facility] Potassium [Moles/Vol] 2.5 mmol/L Critically low 3.7 - 5.3 mmol/L [facility] Interpretation and review of laboratory results Abnormal [facility] Potassium [Moles/Vol] 2.4 mmol/L Critically low 3.7 - 5.3 mmol/L [facility] Quantiferon TB Goldon 2021 QuantiFERON Mitogen 1.11 IU/mL [facility] QuantiFERON Nil 0.02 IU/mL [facility] Quantiferon TB Minus NIL Negative Negative [facility] Quantiferon TB1 Minus NIL 0.00 [facility] Quantiferon TB2 Minus NIL 0.00 [facility] West Nile Virus, CSFon 07-01 [place] IGG CSF 0.19 <=1.29 IV [facility] [place] IGM CSF 0 <=0.89 IV [facility] Culture, Blood 1on 2 Bacteria identified Cx Nom (Unsp spec) Positive Abnormal [facility] Bacteria identified Cx Nom (Unsp spec) DIRECT GRAM STAIN FROM BOTTLE: GRAM POSITIVE COCCI IN CLUSTERS [facility] Bacteria identified Cx Nom (Unsp spec) Staphylococcus aureus Detected: mecA/C and MREJ Not Detected [facility] Bacteria identified Cx Nom (Unsp spec) STAPHYLOCOCCUS AUREUS This isolate is methicillin susceptible. Abnormal [facility] Bacteria identified Cx Nom (Unsp spec) (NOTE) Direct Gram Stain from bottle and Polymerase Chain Reaction (PCR) results called to and read back by: Dino Casillas at 0248 on 06/29/2021. [facility] Special Requests RT FA 3 ML [facility] Specimen Description .BLOOD [facility] Culture, Blood 2on 2 Bacteria identified Cx Nom (Unsp spec) Positive Abnormal [facility] Bacteria identified Cx Nom (Unsp spec) DIRECT GRAM STAIN FROM BOTTLE: GRAM POSITIVE COCCI IN CLUSTERS [facility] Bacteria identified Cx Nom (Unsp spec) STAPHYLOCOCCUS AUREUS For susceptibility, refer to previous culture. Abnormal [facility] Bacteria identified Cx Nom (Unsp spec) (NOTE) Direct Gram Stain from bottle result called to and read back by: Dino Casillas at 0245 on 06/29/2021. [facility] Interpretation and review of laboratory results Abnormal [facility] Special Requests LEFT HAND 1 ML [facility] Specimen Description .BLOOD [facility] Hemoglobin and Hematocriton 06-30-2021 Hematocrit (Bld) [Volume fraction] 29.3 % Low 36.3 - 47.1 % [facility] Hemoglobin.gastrointest inal spec 1 Ql (Stl) 9.4 g/dL Low 11.9 - 15.1 g/dL [facility] Interpretation and review of laboratory results Abnormal [facility] POC Glucose Fingerstickon Glucose [Mass/Vol] 173 mg/dL High 65 - 105 mg/dL [facility] Interpretation and review of laboratory results Abnormal [facility] Glucose [Mass/Vol] 182 mg/dL High 65 - 105 mg/dL [facility] Interpretation and review of laboratory results Abnormal [facility] Glucose [Mass/Vol] 171 mg/dL High 65 - 105 mg/dL [facility] Interpretation and review of laboratory results Abnormal [facility] XR FOOT LEFT (MIN 3 VIEWS)on 06-30-2021 [facility] RIS CONSOLIDATED PN RIS CONSOLIDATED [facility] Work Phone: XR FOOT LEFT (MIN 3 VIEWS)Or dered By: Enedelia Garcia on 06-30-2021 [facility] Work Phone: Acetaminophen Levelon 2021 Acetaminophen Level <5 Low 10 - 30 ug/mL [facility] Ammoniaon 06-28-2021 Ammonia (P) [Moles/Vol] 12 umol/L 11 - 51 umol/L [facility] CBC with Auto Differentialon 06-28-2021 Absolute Bands # 0.43 [facility] alth Absolute Eos # [facility] Absolute Lymph # 1.51 [facility] alth Absolute [place] # 1.08 [facility] 2 % 0 - 10 % [facility] Basophils (Bld) [#/Vol] 0 - 2 % M [facility] Basophils Absolute [facility] Eosinophils % 0 - 5 % [facility] h Hematocrit (Bld) [Volume fraction] 30.9 % Low 36 - 46 % [facility] Hemoglobin.gastrointest inal spec 1 Ql (Stl) 10.1 g/dL Low 12.0 - 16.0 g/dL [facility] Interpretation and review of laboratory results Abnormal [facility] Lymphocytes/100 WBC (Bld) 7 % Low 15 - 40 % [facility] MCH (RBC) [Entitic mass] 26.2 pg 26 - 34 pg [facility] MCHC (RBC) [Mass/Vol] 32.6 g/dL 31 - 3 7 g/dL [facility] MCV (RBC) [Entitic vol] 80.5 fL 80 - 100 fL [facility] Monocytes/100 WBC (Bld) 5 % 4 - 8 % M [facility] Morphology Malachi (Bld) [Interp] Manual Differential Performed [facility] Platelet distribution width (Bld) [Ratio] 17.1 % High 12.1 - 15.2 % [facility] Platelets (Bld) [#/Vol] 537 10*3/uL [facility] RBC (Bld) [#/Vol] 3.83 10*6/uL Low 4.0 - 5.2 m/uL [facility] Segmented neutrophils/100 WBC (Bld) 86 % High 47 - 75 % [facility] Segs Absolute 18.48 High [facility] h WBC (Bld) [#/Vol] 21.5 10*3/uL Critically high [facility] CKon 06-28-2021 CK [Catalytic activity/Vol] 63 U/L 26 - 192 U/L [facility] COVID-19, Rapidon 06-28-2021 SARS-CoV-2 (COVID-19) RNA CAL+probe Ql (Unsp spec) Not detected Not Detected [facility] Comment on above: Rapid NAAT: The [...] management decisions. Fact sheet for Healthcare Providers: https://www.fda.gov/media/768383/download Fact sheet for Patients: https://www.fda.gov/media/221929/download Methodology: Isothermal Nucleic Acid Amplification Specimen Description .NASOPHARYNGEAL SWAB [facility] CT ABDOMEN PELVIS W IV CONTR AST Additional Contrast? Noneon 06-28-2021 1. No evidence of bowel obstruction. 2. Normal appendix. 3. Status post cholecystectomy. [facility] EXAMINATION: CT ABDOMEN PELVIS W IV [...] lesions. Laminectomy changes are noted at L4. [facility] Charly Mendoza MD - 06/28/2021 EXAMINATION: CT ABDOMEN PELVIS [...] 2. Normal appendix. 3. Status post cholecystectomy. [employer] Work Phone: Radiology Study observation (narrative) [employer] Phone: CT ABDOMEN PELVIS W IV CONTR AST Additional Contrast? NoneOrdered By: Charly Mendoza on 06-28-2021 [employer] Work Phone: CT Head WO Contraston 2021 1. Poorly diagnostic examination due to patient motion. 2. No gross evidence of hemorrhage or mass effect. A telephone call regarding the findings in examination and limitations the study was made to and acknowledged by Dr. Boothe in the emergency department at 4:55 AM on 06/28/2021. PN RIS CONSOLIDATED INDICATION: 56 years old; Female. Change [...] shift or herniation. There is grossly normal shha/white differentiation. VENTRICLES/EXTRA-AXIA L SPACES: Enlarged consistent with [...] evaluated in the present study. OTHER: None. [facility] RIS BENJA MaguireKike - 06/28/2021 INDICATION: 56 years old; [...] emergency department at 4:55 AM on 06/28/2021. [employer] Phone: Radiology Study observation (narrative) [employer] Phone: CT Head WO ContrastOrdered B y: Kike Maguire on 06-28-2021 [employer] Phone: Comprehensive Metabolic Pane l w/ Reflex to MGon 06-28-2021 Albumin [Mass/Vol] 4 g/dL 3.5 - 5.2 g/dL [facility] ALP (Bld) [Catalytic activity/Vol] 290 U/L High 35 - 104 U/L [facility] [employer] ALT [Catalytic activity/Vol] 25 U/L 5 - 33 U/L [facility] Anion gap [Moles/Vol] 16 mmol/L 9 - 17 mmol/L [facility] AST [Catalytic activity/Vol] 16 U/L <32 [facility] Bilirubin [Mass/Vol] 0.45 mg/dL 0.30 - 1.20 mg/dL [facility] Calcium [Mass/Vol] 9.9 mg/dL 8.6 - 10. 4 mg/dL [facility] Chloride [Moles/Vol] 95 mmol/L Low 98 - 10 7 mmol/L [facility] CO2 [Moles/Vol] 27 mmol/L 20 - 31 mmol/L [facility] Creatinine [Mass/Vol] 0.89 mg/dL 0.50 - 0.90 mg/dL [facility] [employer] Free PSA/Total PSA [Mass fraction] 8.5 g/dL High 6.4 - 8.3 g/dL [facility] GFR >60 >60 mL/min [facility] GFR Non- >60 >60 mL/min [facility] [employer] GFR/1.73 sq M.predicted MDRD (S/P/Bld) [Vol rate/Area] [facility] Comment on above: Average GFR for 50-5 9 years old: 93 mL/min/1.73sq m Chronic Kidney Disease: <60 mL/min/1.73sq m Kidney failure: <15 mL/min/1.73sq m eGFR calculated using average adult body mass. Additional eGFR calculator available at: http://www.DoNanza.Playlore/multiple_crcl_2012.htm Glucose [Mass/Vol] 268 mg/dL High 70 - 99 mg/dL [facility] Interpretation and review of laboratory results Abnormal [facility] Potassium [Moles/Vol] 3.4 mmol/L Low 3.7 - 5.3 mmol/L [facility] [employer] Sodium [Moles/Vol] 138 mmol/L 135 - 144 mmol/L [facility] Urea nitrogen (BldV) [Mass/Vol] 25 mg/dL High 6 - 20 mg/dL [facility] Urea nitrogen/Creatinine (Bld) [Mass ratio] 28 High [facility] Ethanolon 06-28-2021 Ethanol [Mass/Vol] mg/dL <10 mg/dL [facility] Ethanol [facility] <0.010 % [facility] Lactic Acidon 06-28-2021 Lactate [Moles/Vol] 1.6 mmol/L 0.5 - 2. 2 mmol/L [facility] Lipaseon 06-28-2021 Lipase [Catalytic activity/Vol] 30 U/L 13 - 60 U/L [facility] Magnesiumon 06-28-2021 Magnesium [Mass/Vol] 1.9 mg/dL 1.6 - 2 .6 mg/dL [facility] Microscopic Urinalysison - [facility] Epithelial Cells UA 0 TO 2 /HPF [facility] RBC, UA 5 TO 10 [facility] No Panel Informationon 06-28 Interpretation and review of laboratory results Abnormal [facility] Salicylateon 06-28-2021 Salicylate Lvl <1 Low 3 - 10 mg/dL [facility] Urinalysison 06-28-2021 Bilirubin Urine Negative NEGATIVE [facility] lt Color, UA Yellow Yellow [facility] Glucose, Ur 1000 mg/dL Abnormal NEGATIVE [facility] Interpretation and review of laboratory results Abnormal [facility] Ketones Ql (U) SMALL Abnormal NEGATIVE [facility] Leukocyte esterase Test strip Ql (U) Negative NEGATIVE [facility] Nitrite, Urine Negative NEGATIVE [facility] pH, UA 7.0 [facility] Protein, UA 2+ Abnormal NEGATIVE [facility] Specific [place], UA 1.010 [facility] Turbidity UA Hazy Abnormal Clear [facility] Urinalysis Comments [facility] Urine Hgb 1+ Abnormal NEGATIVE [facility] Urobilinogen, Urine Normal Normal [facility] Urine Drug Screenon 06-29-19 Amphetamine Screen, Ur Negative NEGATIVE [facility] Comment on above: (Positive cutoff 500 ng/mL) Barbiturate Screen, Ur Negative NEGATIVE [facility] Comment on above: (Positive cutoff 200 ng/mL) Benzodiazepine Screen, Urine Negative NEGATIVE [facility] Comment on above: (Positive cutoff 150 ng/mL) Cannabinoid Scrn, Ur Negative NEGATIVE [facility] Comment on above: (Positive cutoff 50 ng/mL) Cocaine Metabolite, Urine Negative NEGATIVE [facility] Comment on above: (Positive cutoff 150 ng/mL) Interpretation and review of laboratory results Abnormal [facility] Methadone Screen, Urine Negative NEGATIVE [facility] Comment on above: (Positive cutoff 200 ng/mL) Methamphetamine, Urine Negative NEGATIVE [facility] Comment on above: (Positive cutoff 500 ng/mL) Opiates, Urine Positive Abnormal [facility]GATIVE [facility] Comment on above: (Positive cutoff 100 ng/mL) Oxycodone Screen, Ur Negative NEGATIVE [facility] Comment on above: (Positive cutoff 100 ng/mL) Phencyclidine, Urine Negative NEGATIVE [facility] Comment on above: (Positive cutoff 25 ng/mL) Propoxyphene, Urine Negative NEGATIVE [facility] Comment on above: (Positive cutoff 300 ng/mL) Tricyclic Antidepressants, Urine Negative NEGATIVE [facility] Comment on above: (Positive cutoff 300 ng/mL) Drug screen results are to be used for medical purposes only. All positive results are unconfirmed. Testing for employment or legal uses should be sent to a reference laboratory for confirmation. [employer] XR CHEST PORTABLEon 06-29-19 No acute abnormality. [facility] CLINICAL HISTORY: altered mental status COMPARISON: none FINDINGS: Portable AP view of the chest obtained. Cardiomediastinal silhouette is normal. Lungs are clear, no evidence of infiltrate, suspicious nodule, or mass. No evidence of significant pleural fluid on this portable projection. No acute bony abnormality. [facility] Leonardo Lopes M D - 06/28/2021 CLINICAL HISTORY: altered mental status COMPARISON: none FINDINGS: Portable AP view of the chest obtained. Cardiomediastinal silhouette is normal. Lungs are clear, no evidence of infiltrate, suspicious nodule, or mass. No evidence of significant pleural fluid on this portable projection. No acute bony abnormality. IMPRESSION: No acute abnormality. [employer] Work Phone: Radiology Study observation (narrative) [employer] [facility] Work Phone: XR CHEST PORTABLEOrdered By: Leonardo Lopes on 06-28-2021 [employer] Work Phone: COVID-19, MOLECULARon 2021 SARS-CoV-2 (COVID-19) RNA CAL+probe Ql (Unsp spec) Not detected Normal Not Detected [facility] Comment on above: Order Comment: This test [...] at the following links: For Healthcare Providers: https://www.fda.gov/media/643709/download For Patients: https://www.fda.gov/media/521469/download Performed By: #### L [id number] #### [facility] [address] [address] Adilson Niño M.D. [id number] MR FOOT LEFT WITHOUT CONTRAS Ton 05-21-2021 [...] on FriMay 22, 2021 7:54:35 AM EDT [facility] Comment on above: Order Comment: Injur [...] gas. Workstation ID: [id number] Dictated by: LUIS POLANCO on [place] May 20, 2021 4:40:24 PM EDT Transcribed by: LUIS POLANCO on [place] May 20, 2021 4:40:24 PM EDT Finalized by: LUIS POLANCO on [place] May 20, 2021 4:40:[address] [facility] Comment on above: Order Comment: Injur y/Trauma [...] patent on the right. SCA patent bilaterally. PATIENT REGISTRATION REPRESENTATIVE patent bilaterally. Basilar artery and basilar tip [...] ID: [id number] Dictated by: KIKE MAGUIRE on [facility] May 19, 2021 3:53:28 AM EDT Transcribed by: KIKE MAGUIRE on [facility] May 19, 2021 3:53:28 AM EDT Finalized by: KIKE MAGUIRE on [facility] May 19, 2021 3:53:[address] [facility] Comment on above: Order Comment: Injur y/Trauma [...] May 19, 2021 10:41:[address] [facility] Comment on above: Order Comment: Injur y/Trauma [...] at C4-5. No evidence of foraminal stenosis. OLMAN/aye Workstation ID: [id number] Dictated by: Pili FONTAINE on [place] May 20, 2021 8:14:06 AM EDT Transcribed by: JANY FORBES on [place] May 20, 2021 8:50:25 AM EDT Finalized by: Pili FONTAINE on [place] May 20, 2021 2:03:[address] [facility] Comment on above: Order Comment: Injur y/Trauma [...] ID: [id number] Dictated by: JOS FREDERICK on Sat May 19, 2021 6:07:29 PM EDT Transcribed by: JOS FREDERICK on [facility] May 19, 2021 6:07:29 PM EDT Finalized by: JOS FREDERICK on [facility] May 19, 2021 6:07:[address] [facility] Comment on above: Order Comment: Injur y/Trauma or Illness?:Illness/Other How long have you had these symptoms (acute/chronic)?:Acute Reason for exam?:elevated liver enzymes History of cancer?:u Surgeries, chemotherapy, or radiation?:u Type of Exam?:Initial Additional signs and symptoms?:n COVID-19, MOLECULARon 2021 SARS-CoV-2 (COVID-19) RNA CAL+probe Ql (Unsp spec) Not detected Normal Not Detected [facility] Comment on above: Result Comment: This test was performed under the FDA's Emergency Use Authorization (EUA). Testing was performed using the Xpert Xpress SARS-CoV-2 RT-PCR Azoi assay on the GeneXpert Dx platform. This test has not been approved for use in asymptomatic patients and its performance in this patient population has not been evaluated. Negative results do not rule out the presence of SARS-CoV-2/COVID-19. Fact sheets for this EUA can be found at the following links: For Healthcare Providers: https://www.fda.gov/media/512412/download For Patients: https://www.fda.gov/media/682387/download Performed By: #### L [id number] #### SH [address] [address] Adilson Niño M.D. [id number] CT CERVICAL SPINE WITHOUT CO NTRASTon 05-18-2021 [...] to severe right facet arthropathy at C5-C6. Uybg-[id number]-fqzfascw stenosis of the right C5-C6 neural foramen [...] the cervical spine without central spinal stenosis. Uqru-jy-bacgftge stenosis the right C5-C6 neural foramen secondary to mild uncovertebral hypertrophy and moderate to severe right facet hypertrophy. Workstation ID: [id number] Dictated by: ALBERT MARIA on FriMay 18, 2021 5:23:47 PM EDT Transcribed by: ALBERT MARIA on FriMay 18, 2021 5:23:47 PM EDT Finalized by: ALBERT MARIA on FriMay 18, 2021 5:23:47 PM EDT [facility] Comment on above: Order Comment: Injur y/Trauma or Illness?:Injury/Trauma How long have you had these symptoms (acute/chronic)?:Acute Reason for exam?:severe neck pain and headache since chiropractic adjustment a couple days ago Type of Exam?:Initial Mechanism of injury?:chiropractic adjustment a couple days ago [facility] 24-2 STANDARD - OUon [facility] 24-2 STANDARD - OU OD: Reliable: 0/1 6 FL, 0% FP, 0% FN Stable: worse Findings: superior alt MD: -11.18 (-7.05) OS: Reliable: /17 FL, 0% FP, 12% FN Stable: worse Findings: superior forming alt MD: -7.89 (-5.69) Normal [facility] BUN CREAon 05-11-2021 Creatinine [Mass/Vol] 1.38 mg/dL High 0.50 - 1.20 mg/dL [facility] GFR/1.73 sq M.predicted CKD-EPI (S/P/Bld) [Vol rate/Area] 44 Low >=60 mL/min/1.73 m2 [facility] Comment on above: Reported eGFR is bas ed on the CKD-EPI 2021 equation using creatinine, age, and sex. Interpretation and review of laboratory results Abnormal [facility] Urea nitrogen [Mass/Vol] 27 mg/dL High 7 - 25 mg/dL [facility] Urea nitrogen/Creatinine [Mass ratio] 20 mg/mg [facility] Creatinine [Mass/Vol] 1.38 mg/dL High 0.50-1.20 [facility] Comment on above: Order Comment: Prior to first [facility] and every 2 weeks if baseline CR is within normal limits. Performed By: #### B CR #### [facility] (DEFAULT) [address] [address] GFR/1.73 sq M.predicted among non-blacks MDRD (S/P/Bld) [Vol rate/Area] 44 mL/min/{1.73_m2} Low >=60 [facility] Comment on above: Order Comment: Prior to first [facility] and every 2 weeks if baseline CR is within normal limits. Result Comment: Repo rted eGFR is based on the CKD-EPI 2021 equation using creatinine, age, and sex. Performed By: #### B CR #### [facility] (DEFAULT) [address] [address] Urea nitrogen [Mass/Vol] 27 mg/dL High 7-25 [facility] Comment on above: Order Comment: Prior to first [facility] and every 2 weeks if baseline CR is within normal limits. Performed By: #### B CR #### [facility] (DEFAULT) [address] [address] Urea nitrogen/Creatinine [Mass ratio] 20 mg/mg Normal [facility] Comment on above: Order Comment: Prior to first [facility] and every 2 weeks if baseline CR is within normal limits. Performed By: #### B CR #### [facility] (DEFAULT) [address] [place] [address] CBC AND ELECTRONIC DIFFon Basophils (Bld) [#/Vol] 10*3/uL 0.00 - 0.15 K/uL [facility] Basophils/100 WBC (Bld) 0.2 % [facility] DIFF STATUS Electronic Differential [facility] Eosinophils (Bld) [#/Vol] 0.16 10*3/uL 0.00 - 0.42 K/uL [facility] Eosinophils/100 WBC (Bld) 1.9 % [facility] Erythrocyte distribution width (RBC) [Ratio] 15.4 % High 10.8 - 14.9 % [facility] Hematocrit (Bld) [Volume fraction] 36.1 % 34.9 - 44.3 % [facility] Hemoglobin (Bld) [Mass/Vol] 11.7 g/dL 11.4 - 15.2 g/dL [facility] Immature granulocytes (Bld) [#/Vol] 10*3/uL <=0.09 K/uL [facility] Immature granulocytes/100 WBC (Bld) 0.2 % [facility] Interpretation and review of laboratory results Abnormal [facility] Lymphocytes (Bld) [#/Vol] 2.68 10*3/uL 1.16 - 3.51 K/uL [facility] Lymphocytes/100 WBC (Bld) 32.0 % [facility] MCH (RBC) [Entitic mass] 27.6 pg 25.9 - 33.9 pg [facility] MCHC (RBC) [Mass/Vol] 32.4 g/dL 31.4 - 35.9 g/dL [facility] MCV (RBC) [Entitic vol] 85.1 fL 79.6 - 97.7 fL [facility] Monocytes (Bld) [#/Vol] 0.37 10*3/uL 0.22 - 0.87 K/uL [facility] Monocytes/100 WBC (Bld) 4.4 % [facility] Neutrophils (Bld) [#/Vol] 5.13 10*3/uL 1.64 - 7.28 K/uL [facility] Nucleated RBC/100 WBC (Bld) [Ratio] 0.0 % <=0.2 /100 WBC [facility] Platelet mean volume (Bld) [Entitic vol] 9.8 fL 8.5 - 12.2 fL [facility] Platelets (Bld) [#/Vol] 338 10*3/uL 150 - 393 K/uL [facility] RBC (Bld) [#/Vol] 4.24 10*6/uL [facility] Segmented neutrophils/100 WBC (Bld) 61.3 % [facility] WBC (Bld) [#/Vol] 8.38 10*3/uL 3.99 - 11.19 K/uL [facility] Basophils (Bld) [#/Vol] 10*3/uL Normal 0.00-0.15 [facility] Comment on above: Order Comment: Prior to first [facility] and then every 2 weeks.until results within normal limits. Collect weekly if baseline is abnormal. Performed By: #### L [id number] #### [facility] (DEFAULT) [address] [address] Basophils/100 WBC (Bld) 0.2 % Normal [facility] Comment on above: Order Comment: Prior to first [facility] and then every 2 weeks.until results within normal limits. Collect weekly if baseline is abnormal. Performed By: #### L [id number] #### [facility] (DEFAULT) [address] [address] DIFF STATUS Electronic Differential Normal [facility] Comment on above: Order Comment: Prior to first [facility] and then every 2 weeks.until results within normal limits. Collect weekly if baseline is abnormal. Performed By: #### L [id number] #### [facility] (DEFAULT) [address] [address] Eosinophils (Bld) [#/Vol] 0.16 10*3/uL Normal 0.00-0.42 [facility] Comment on above: Order Comment: Prior to first [facility] and then every 2 weeks.until results within normal limits. Collect weekly if baseline is abnormal. Performed By: #### L [id number] #### [facility] (DEFAULT) [address] [address] Eosinophils/100 WBC (Bld) 1.9 % Normal [facility] Comment on above: Order Comment: Prior to first [facility] and then every 2 weeks.until results within normal limits. Collect weekly if baseline is abnormal. Performed By: #### L [id number] #### [facility] (DEFAULT) [address] [address] Hematocrit (Bld) [Volume fraction] 36.1 % Normal 34.9-44.3 [facility] Comment on above: Order Comment: Prior to first [facility] and then every 2 weeks.until results within normal limits. Collect weekly if baseline is abnormal. Performed By: #### L [id number] #### [facility] (DEFAULT) [address] [address] Hemoglobin (Bld) [Mass/Vol] 11.7 g/dL Normal 11.4-15.2 [facility] Comment on above: Order Comment: Prior to first [facility] and then every 2 weeks.until results within normal limits. Collect weekly if baseline is abnormal. Performed By: #### L [id number] #### [facility] (DEFAULT) [address] [address] Immature Grans % 0.2 % Normal [facility] Comment on above: Order Comment: Prior to first [facility] and then every 2 weeks.until results within normal limits. Collect weekly if baseline is abnormal. Performed By: #### L [id number] #### [facility] (DEFAULT) [address] [address] Immature Grans Absolute <0.04 Normal <=0.09 [facility] Comment on above: Order Comment: Prior to first [facility] and then every 2 weeks.until results within normal limits. Collect weekly if baseline is abnormal. Performed By: #### L [id number] #### [facility] (DEFAULT) [address] [address] Lymphocytes (Bld) [#/Vol] 2.68 10*3/uL Normal 1.16-3.51 [facility] Comment on above: Order Comment: Prior to first [facility] and then every 2 weeks.until results within normal limits. Collect weekly if baseline is abnormal. Performed By: #### L [id number] #### [facility] (DEFAULT) [address] [address] Lymphocytes/100 WBC (Bld) 32.0 % Normal [facility] Comment on above: Order Comment: Prior to first [facility] and then every 2 weeks.until results within normal limits. Collect weekly if baseline is abnormal. Performed By: #### L [id number] #### [facility] (DEFAULT) [address] [place] [address] MCV (RBC) [Entitic vol] 85.1 fL Normal 79.6-97.7 [facility] Comment on above: Order Comment: Prior to first [facility] and then every 2 weeks.until results within normal limits. Collect weekly if baseline is abnormal. Performed By: #### L [id number] #### [facility] (DEFAULT) [address] [address] Mean Cell Hgb 27.6 pg Normal 25.9-33.9 [facility] Comment on above: Order Comment: Prior to first [facility] and then every 2 weeks.until results within normal limits. Collect weekly if baseline is abnormal. Performed By: #### L [id number] #### [facility] (DEFAULT) [address] [place] [address] Mean Cell Hgb Conc 32.4 g/dL Normal 31.4-35.9 [facility] Comment on above: Order Comment: Prior to first [facility] and then every 2 weeks.until results within normal limits. Collect weekly if baseline is abnormal. Performed By: #### L [id number] #### [facility] (DEFAULT) [address] [address] Monocytes (Bld) [#/Vol] 0.37 10*3/uL Normal 0.22-0.87 [facility] Comment on above: Order Comment: Prior to first [facility] and then every 2 weeks.until results within normal limits. Collect weekly if baseline is abnormal. Performed By: #### L [id number] #### [facility] (DEFAULT) [address] [address] Monocytes/100 WBC (Bld) 4.4 % Normal [facility] Comment on above: Order Comment: Prior to first [facility] and then every 2 weeks.until results within normal limits. Collect weekly if baseline is abnormal. Performed By: #### L [id number] #### [facility] (DEFAULT) [address] [address] Nucleated RBC 0.0 /100 WBC Normal <=0.2 [facility] Comment on above: Order Comment: Prior to first [facility] and then every 2 weeks.until results within normal limits. Collect weekly if baseline is abnormal. Performed By: #### L [id number] #### [facility] (DEFAULT) [address] [address] Platelet mean volume (Bld) [Entitic vol] 9.8 fL Normal 8.5-12.2 [facility] Comment on above: Order Comment: Prior to first [facility] and then every 2 weeks.until results within normal limits. Collect weekly if baseline is abnormal. Performed By: #### L [id number] #### [facility] (DEFAULT) [address] [address] Platelets (Bld) [#/Vol] 338 10*3/uL Normal 150-393 [facility] Comment on above: Order Comment: Prior to first [facility] and then every 2 weeks.until results within normal limits. Collect weekly if baseline is abnormal. Performed By: #### L [id number] #### [facility] (DEFAULT) [address] [address] RBC (Bld) [#/Vol] 4.24 10*6/uL Normal 3.91-5.04 [facility] Comment on above: Order Comment: Prior to first [facility] and then every 2 weeks.until results within normal limits. Collect weekly if baseline is abnormal. Performed By: #### L [id number] #### [facility] (DEFAULT) [address] [address] RBC Distribution 15.4 % High 10.8-14.9 [facility] Comment on above: Order Comment: Prior to first [facility] and then every 2 weeks.until results within normal limits. Collect weekly if baseline is abnormal. Performed By: #### L [id number] #### [facility] (DEFAULT) [address] [address] Segs + Bands Auto 61.3 % Normal [facility] Comment on above: Order Comment: Prior to first [facility] and then every 2 weeks.until results within normal limits. Collect weekly if baseline is abnormal. Performed By: #### L [id number] #### [facility] (DEFAULT) [address] [address] Segs + Bands,Absolute Auto 5.13 K/uL Normal 1.64-7.28 [facility] Comment on above: Order Comment: Prior to first [facility] and then every 2 weeks.until results within normal limits. Collect weekly if baseline is abnormal. Performed By: #### L [id number] #### [facility] (DEFAULT) [address] [address] WBC (Bld) [#/Vol] 8.38 10*3/uL Normal 3.99-11.19 [facility] Comment on above: Order Comment: Prior to first [facility] and then every 2 weeks.until results within normal limits. Collect weekly if baseline is abnormal. Performed By: #### L [id number] #### [facility] (DEFAULT) [address] [address] BUN CREAon 04-25-2021 Creatinine [Mass/Vol] 1.29 mg/dL High 0.50-1.20 [facility] Comment on above: Order Comment: Prior to first [facility] and every 2 weeks if baseline CR is within normal limits. Performed By: #### B CR #### [facility] (DEFAULT) [address] [place] [address] GFR/1.73 sq M.predicted among non-blacks MDRD (S/P/Bld) [Vol rate/Area] 48 mL/min/{1.73_m2} Low >=60 [facility] Comment on above: Order Comment: Prior to first [facility] and every 2 weeks if baseline CR is within normal limits. Result Comment: Repo rted eGFR is based on the CKD-EPI 2020 equation using creatinine, age, and sex. Performed By: #### B CR #### [facility] (DEFAULT) [address] [place] [address] Urea nitrogen [Mass/Vol] 27 mg/dL High 7-25 [facility] Comment on above: Order Comment: Prior to first [facility] and every 2 weeks if baseline CR is within normal limits. Performed By: #### B CR #### [facility] (DEFAULT) [address] [place] [address] Urea nitrogen/Creatinine [Mass ratio] 21 mg/mg Normal [facility] Comment on above: Order Comment: Prior to first [facility] and every 2 weeks if baseline CR is within normal limits. Performed By: #### B CR #### [facility] (DEFAULT) [address] [place] [address] CBC AND ELECTRONIC DIFFon Basophils (Bld) [#/Vol] 0.05 10*3/uL Normal 0.00-0.15 [facility] Comment on above: Order Comment: Prior to first [facility] and then every 2 weeks.until results within normal limits. Collect weekly if baseline is abnormal. Performed By: #### L [id number] #### [facility] (DEFAULT) [address] [address] Basophils/100 WBC (Bld) 0.6 % Normal [facility] Comment on above: Order Comment: Prior to first [facility] and then every 2 weeks.until results within normal limits. Collect weekly if baseline is abnormal. Performed By: #### L [id number] #### [facility] (DEFAULT) [address] [address] DIFF STATUS Electronic Differential Normal [facility] Comment on above: Order Comment: Prior to first [facility] and then every 2 weeks.until results within normal limits. Collect weekly if baseline is abnormal. Performed By: #### L [id number] #### [facility] (DEFAULT) [address] [address] Eosinophils (Bld) [#/Vol] 0.23 10*3/uL Normal 0.00-0.42 [facility] Comment on above: Order Comment: Prior to first [facility] and then every 2 weeks.until results within normal limits. Collect weekly if baseline is abnormal. Performed By: #### L [id number] #### [facility] (DEFAULT) [address] [address] Eosinophils/100 WBC (Bld) 2.6 % Normal [facility] Comment on above: Order Comment: Prior to first [facility] and then every 2 weeks.until results within normal limits. Collect weekly if baseline is abnormal. Performed By: #### L [id number] #### [facility] (DEFAULT) [address] [address] Hematocrit (Bld) [Volume fraction] 34.0 % Low 34.9-44.3 [facility] Comment on above: Order Comment: Prior to first [facility] and then every 2 weeks.until results within normal limits. Collect weekly if baseline is abnormal. Performed By: #### L [id number] #### [facility] (DEFAULT) [address] [address] Hemoglobin (Bld) [Mass/Vol] 10.7 g/dL Low 11.4-15.2 [facility] Comment on above: Order Comment: Prior to first [facility] and then every 2 weeks.until results within normal limits. Collect weekly if baseline is abnormal. Performed By: #### L [id number] #### [facility] (DEFAULT) [address] [address] Immature Grans % 0.2 % Normal [facility] Comment on above: Order Comment: Prior to first [facility] and then every 2 weeks.until results within normal limits. Collect weekly if baseline is abnormal. Performed By: #### L [id number] #### [facility] (DEFAULT) [address] [address] Immature Grans Absolute <0.04 Normal <=0.09 [facility] Comment on above: Order Comment: Prior to first [facility] and then every 2 weeks.until results within normal limits. Collect weekly if baseline is abnormal. Performed By: #### L [id number] #### [facility] (DEFAULT) [address] [address] Lymphocytes (Bld) [#/Vol] 2.20 10*3/uL Normal 1.16-3.51 [facility] Comment on above: Order Comment: Prior to first [facility] and then every 2 weeks.until results within normal limits. Collect weekly if baseline is abnormal. Performed By: #### L [id number] #### [facility] (DEFAULT) [address] [address] Lymphocytes/100 WBC (Bld) 24.5 % Normal [facility] Comment on above: Order Comment: Prior to first [facility] and then every 2 weeks.until results within normal limits. Collect weekly if baseline is abnormal. Performed By: #### L [id number] #### [facility] (DEFAULT) [address] [place] [address] MCV (RBC) [Entitic vol] 85.4 fL Normal 79.6-97.7 [facility] Comment on above: Order Comment: Prior to first [facility] and then every 2 weeks.until results within normal limits. Collect weekly if baseline is abnormal. Performed By: #### L [id number] #### [facility] (DEFAULT) [address] [address] Mean Cell Hgb 26.9 pg Normal 25.9-33.9 [facility] Comment on above: Order Comment: Prior to first [facility] and then every 2 weeks.until results within normal limits. Collect weekly if baseline is abnormal. Performed By: #### L [id number] #### [facility] (DEFAULT) [address] [address] Mean Cell Hgb Conc 31.5 g/dL Normal 31.4-35.9 [facility] Comment on above: Order Comment: Prior to first [facility] and then every 2 weeks.until results within normal limits. Collect weekly if baseline is abnormal. Performed By: #### L [id number] #### [facility] (DEFAULT) [address] [address] Monocytes (Bld) [#/Vol] 0.41 10*3/uL Normal 0.22-0.87 [facility] Comment on above: Order Comment: Prior to first [facility] and then every 2 weeks.until results within normal limits. Collect weekly if baseline is abnormal. Performed By: #### L [id number] #### [facility] (DEFAULT) [address] [address] Monocytes/100 WBC (Bld) 4.6 % Normal [facility] Comment on above: Order Comment: Prior to first [facility] and then every 2 weeks.until results within normal limits. Collect weekly if baseline is abnormal. Performed By: #### L [id number] #### [facility] (DEFAULT) [address] [address] Nucleated RBC 0.0 /100 WBC Normal <=0.2 [facility] Comment on above: Order Comment: Prior to first [facility] and then every 2 weeks.until results within normal limits. Collect weekly if baseline is abnormal. Performed By: #### L [id number] #### [facility] (DEFAULT) [address] [address] Platelet mean volume (Bld) [Entitic vol] 9.8 fL Normal 8.5-12.2 [facility] Comment on above: Order Comment: Prior to first [facility] and then every 2 weeks.until results within normal limits. Collect weekly if baseline is abnormal. Performed By: #### L [id number] #### [facility] (DEFAULT) [address] [address] Platelets (Bld) [#/Vol] 389 10*3/uL Normal 150-393 [facility] Comment on above: Order Comment: Prior to first [facility] and then every 2 weeks.until results within normal limits. Collect weekly if baseline is abnormal. Performed By: #### L [id number] #### [facility] (DEFAULT) [address] [address] RBC (Bld) [#/Vol] 3.98 10*6/uL Normal 3.91-5.04 [facility] Comment on above: Order Comment: Prior to first [facility] and then every 2 weeks.until results within normal limits. Collect weekly if baseline is abnormal. Performed By: #### L [id number] #### [facility] (DEFAULT) [address] [address] RBC Distribution 14.8 % Normal 10.8-14.9 [facility] Comment on above: Order Comment: Prior to first [facility] and then every 2 weeks.until results within normal limits. Collect weekly if baseline is abnormal. Performed By: #### L [id number] #### [facility] (DEFAULT) [address] [address] Segs + Bands Auto 67.5 % Normal [facility] Comment on above: Order Comment: Prior to first [facility] and then every 2 weeks.until results within normal limits. Collect weekly if baseline is abnormal. Performed By: #### L [id number] #### [facility] (DEFAULT) [address] [address] Segs + Bands,Absolute Auto 6.07 K/uL Normal 1.64-7.28 [facility] Comment on above: Order Comment: Prior to first [facility] and then every 2 weeks.until results within normal limits. Collect weekly if baseline is abnormal. Performed By: #### L [id number] #### [facility] (DEFAULT) [address] [address] WBC (Bld) [#/Vol] 8.98 10*3/uL Normal 3.99-11.19 [facility] Comment on above: Order Comment: Prior to first [facility] and then every 2 weeks.until results within normal limits. Collect weekly if baseline is abnormal. Performed By: #### L [id number] #### [facility] (DEFAULT) [address] [place] [address] CBC AND ELECTRONIC DIFFon Basophils (Bld) [#/Vol] 10*3/uL Normal 0.00-0.15 [facility] Comment on above: Order Comment: Prior to first [facility] and then every 2 weeks.until results within normal limits. Collect weekly if baseline is abnormal. Performed By: #### L [id number] #### [facility] (DEFAULT) [address] [place] [address] Basophils/100 WBC (Bld) 0.3 % Normal [facility] Comment on above: Order Comment: Prior to first [facility] and then every 2 weeks.until results within normal limits. Collect weekly if baseline is abnormal. Performed By: #### L [id number] #### [facility] (DEFAULT) [address] [address] DIFF STATUS Electronic Differential Normal [facility] Comment on above: Order Comment: Prior to first [facility] and then every 2 weeks.until results within normal limits. Collect weekly if baseline is abnormal. Performed By: #### L [id number] #### [facility] (DEFAULT) [address] [address] Eosinophils (Bld) [#/Vol] 0.24 10*3/uL Normal 0.00-0.42 [facility] Comment on above: Order Comment: Prior to first [facility] and then every 2 weeks.until results within normal limits. Collect weekly if baseline is abnormal. Performed By: #### L [id number] #### [facility] (DEFAULT) [address] [address] Eosinophils/100 WBC (Bld) 2.4 % Normal [facility] Comment on above: Order Comment: Prior to first [facility] and then every 2 weeks.until results within normal limits. Collect weekly if baseline is abnormal. Performed By: #### L [id number] #### [facility] (DEFAULT) [address] [address] Hematocrit (Bld) [Volume fraction] 33.4 % Low 34.9-44.3 [facility] Comment on above: Order Comment: Prior to first [facility] and then every 2 weeks.until results within normal limits. Collect weekly if baseline is abnormal. Performed By: #### L [id number] #### [facility] (DEFAULT) [address] [address] Hemoglobin (Bld) [Mass/Vol] 10.3 g/dL Low 11.4-15.2 [facility] Comment on above: Order Comment: Prior to first [facility] and then every 2 weeks.until results within normal limits. Collect weekly if baseline is abnormal. Performed By: #### L [id number] #### [facility] (DEFAULT) [address] [address] Immature Grans % 0.2 % Normal [facility] Comment on above: Order Comment: Prior to first [facility] and then every 2 weeks.until results within normal limits. Collect weekly if baseline is abnormal. Performed By: #### L [id number] #### [facility] (DEFAULT) [address] [address] Immature Grans Absolute <0.04 Normal <=0.09 [facility] Comment on above: Order Comment: Prior to first [facility] and then every 2 weeks.until results within normal limits. Collect weekly if baseline is abnormal. Performed By: #### L [id number] #### [facility] (DEFAULT) [address] [address] Lymphocytes (Bld) [#/Vol] 2.87 10*3/uL Normal 1.16-3.51 [facility] Comment on above: Order Comment: Prior to first [facility] and then every 2 weeks.until results within normal limits. Collect weekly if baseline is abnormal. Performed By: #### L [id number] #### [facility] (DEFAULT) [address] [address] Lymphocytes/100 WBC (Bld) 29.1 % Normal [facility] Comment on above: Order Comment: Prior to first [facility] and then every 2 weeks.until results within normal limits. Collect weekly if baseline is abnormal. Performed By: #### L [id number] #### [facility] (DEFAULT) [address] [address] MCV (RBC) [Entitic vol] 85.2 fL Normal 79.6-97.7 [facility] Comment on above: Order Comment: Prior to first [facility] and then every 2 weeks.until results within normal limits. Collect weekly if baseline is abnormal. Performed By: #### L [id number] #### [facility] (DEFAULT) [address] [address] Mean Cell Hgb 26.3 pg Normal 25.9-33.9 [facility] Comment on above: Order Comment: Prior to first [facility] and then every 2 weeks.until results within normal limits. Collect weekly if baseline is abnormal. Performed By: #### L [id number] #### [facility] (DEFAULT) [address] [address] Mean Cell Hgb Conc 30.8 g/dL Low 31.4-35.9 [facility] Comment on above: Order Comment: Prior to first [facility] and then every 2 weeks.until results within normal limits. Collect weekly if baseline is abnormal. Performed By: #### L [id number] #### [facility] (DEFAULT) [address] [address] Monocytes (Bld) [#/Vol] 0.37 10*3/uL Normal 0.22-0.87 [facility] Comment on above: Order Comment: Prior to first [facility] and then every 2 weeks.until results within normal limits. Collect weekly if baseline is abnormal. Performed By: #### L [id number] #### [facility] (DEFAULT) [address] [address] Monocytes/100 WBC (Bld) 3.7 % Normal [facility] Comment on above: Order Comment: Prior to first [facility] and then every 2 weeks.until results within normal limits. Collect weekly if baseline is abnormal. Performed By: #### L [id number] #### [facility] (DEFAULT) [address] [address] Nucleated RBC 0.0 /100 WBC Normal <=0.2 [facility] Comment on above: Order Comment: Prior to first [facility] and then every 2 weeks.until results within normal limits. Collect weekly if baseline is abnormal. Performed By: #### L [id number] #### [facility] (DEFAULT) [address] [address] Platelet mean volume (Bld) [Entitic vol] 9.9 fL Normal 8.5-12.2 [facility] Comment on above: Order Comment: Prior to first [facility] and then every 2 weeks.until results within normal limits. Collect weekly if baseline is abnormal. Performed By: #### L [id number] #### [facility] (DEFAULT) [address] [address] Platelets (Bld) [#/Vol] 346 10*3/uL Normal 150-393 [facility] Comment on above: Order Comment: Prior to first [facility] and then every 2 weeks.until results within normal limits. Collect weekly if baseline is abnormal. Performed By: #### L [id number] #### [facility] (DEFAULT) [address] [address] RBC (Bld) [#/Vol] 3.92 10*6/uL Normal 3.91-5.04 [facility] Comment on above: Order Comment: Prior to first [facility] and then every 2 weeks.until results within normal limits. Collect weekly if baseline is abnormal. Performed By: #### L [id number] #### [facility] (DEFAULT) [address] [address] RBC Distribution 15.1 % High 10.8-14.9 [facility] Comment on above: Order Comment: Prior to first [facility] and then every 2 weeks.until results within normal limits. Collect weekly if baseline is abnormal. Performed By: #### L [id number] #### [facility] (DEFAULT) [address] [address] Segs + Bands Auto 64.3 % Normal [facility] Comment on above: Order Comment: Prior to first [facility] and then every 2 weeks.until results within normal limits. Collect weekly if baseline is abnormal. Performed By: #### L [id number] #### [facility] (DEFAULT) [address] [address] Segs + Bands,Absolute Auto 6.34 K/uL Normal 1.64-7.28 [facility] Comment on above: Order Comment: Prior to first [facility] and then every 2 weeks.until results within normal limits. Collect weekly if baseline is abnormal. Performed By: #### L [id number] #### [facility] (DEFAULT) [address] [address] WBC (Bld) [#/Vol] 9.87 10*3/uL Normal 3.99-11.19 [facility] Comment on above: Order Comment: Prior to first [facility] and then every 2 weeks.until results within normal limits. Collect weekly if baseline is abnormal. Performed By: #### L [id number] #### [facility] (DEFAULT) [address] [address] Comprehensive metabolic 2000 panelon 04-06-2021 High Sensitivity Troponin I 9 ng/L Normal <14 [facility] Comment on above: Performed By: #### 2 4321-2 #### [facility] [address] [place] [address] Glucose Auto test strip (Bld ) [Mass/Vol]on 04-06-2021 Glucose [Mass/Vol] 219 mg/dL High 70-99 [facility] Comment on above: Performed By: #### 2 4321-2 #### [facility] [address] [place] [address] Glucose [Mass/Vol] 245 mg/dL High 70-99 [facility] Comment on above: Performed By: #### 2 4321-2 #### [facility] [address] [place] [address] Glucose [Mass/Vol] 176 mg/dL High 70-99 [facility] Comment on above: Performed By: #### 2 4321-2 #### [facility] [address] [place] [address] Glucose [Mass/Vol] 217 mg/dL High 70-99 [facility] Comment on above: Performed By: #### 2 340-8 #### [facility] [address] [place] [address] HbA1c HPLC (Bld) [Mass fract ion]on 04-06-2021 HbA1c (Bld) [Mass fraction] 11.8 % High <=5.6 [facility] Comment on above: Result Comment: HbA1 c values of 5.7-6.4 percent indicate an increased risk for developing diabetes mellitus. HbA1c values greater than or equal to 6.5 percent are diagnostic of diabetes mellitus. For diagnosis of diabetes in individuals without unequivocal hyperglycemia, results should be confirmed by repeat testing. Performed By: #### 2 4321-2 #### [facility] [address] [place] [address] Mean Bld Glu Estim. 292 mg/dL Normal [facility] Comment on above: Performed By: #### 2 4321-2 #### [facility] [address] [place] [address] Hemogram and platelets WO di fferential panel (Bld)on 04-06-2021 Basophils (Bld) [#/Vol] 0.00 10*3/uL Normal 0.00-0.20 [facility] Comment on above: Performed By: #### 2 4317-0 #### [facility] [address] [place] [address] Basophils/100 WBC (Bld) 0.4 % Normal 0.0-2.0 [facility] Comment on above: Performed By: #### 2 4317-0 #### [facility] [address] [place] [address] Eosinophils (Bld) [#/Vol] 0.30 10*3/uL Normal 0.00-0.70 [facility] Comment on above: Performed By: #### 2 4317-0 #### [facility] [address] [place] [address] Eosinophils/100 WBC (Bld) 3.5 % Normal 0.0-7.0 [facility] Comment on above: Performed By: #### 2 4317-0 #### [facility] [address] [place] [address] Erythrocyte distribution width (RBC) [Ratio] 15.3 % High 11.0-14.8 [facility] Comment on above: Performed By: #### 2 4317-0 #### [facility] [address] [place] [address] Hematocrit (Bld) [Volume fraction] 32.4 % Low 35.0-45.0 [facility] Comment on above: Performed By: #### 2 4317-0 #### [facility] [address] [place] [address] Hemoglobin (Bld) [Mass/Vol] 10.8 g/dL Low 12.0-16.0 [facility] Comment on above: Performed By: #### 2 4317-0 #### [facility] [address] [place] [address] Lymphocytes (Bld) [#/Vol] 3.10 10*3/uL Normal 1.00-4.80 [facility] Comment on above: Performed By: #### 2 4317-0 #### [facility] [address] [place] [address] Lymphocytes/100 WBC (Bld) 39.3 % Normal 22.0-44.0 [facility] Comment on above: Performed By: #### 2 4317-0 #### [facility] [address] [place] [address] MCH 27.2 pcg Normal 27.0-34.0 [facility] Comment on above: Performed By: #### 2 4317-0 #### [facility] [address] [place] [address] MCHC (RBC) [Mass/Vol] 33.4 g/dL Normal 32.0-36.0 [place] [facility] Comment on above: Performed By: #### 2 4317-0 #### [facility] [address] [place] [address] MCV (RBC) [Entitic vol] 81.4 fL Normal 80.0-97.[address] [facility] Comment on above: Performed By: #### 2 4317-0 #### [facility] [address] [place] [address] Monocytes (Bld) [#/Vol] 0.50 10*3/uL Normal 0.00-0.90 [facility] Comment on above: Performed By: #### 2 4317-0 #### [facility] [address] [place] [address] Monocytes/100 WBC (Bld) 6.5 % Normal 0.0-12.0 M [facility] Comment on above: Performed By: #### 2 4317-0 #### [facility] [address] [place] [address] Neutrophils Absolute 4.00 K/mcL Normal 1.80-7.70 [facility] Comment on above: Performed By: #### 2 4317-0 #### [facility] [address] [place] [address] Neutrophils/100 WBC (Bld) 50.3 % Normal 40.0-70.0 [facility] Comment on above: Performed By: #### 2 4317-0 #### [facility] [address] [place] [address] Platelet mean volume (Bld) [Entitic vol] 6.6 fL Normal 6.2-12.1 [facility] Comment on above: Performed By: #### 2 4317-0 #### [facility] [address] [place] [address] Platelets (Bld) [#/Vol] 356 10*3/uL Normal 142-424 [facility] Comment on above: Performed By: #### 2 4317-0 #### [facility] [address] [place] [address] RBC (Bld) [#/Vol] 3.98 10*6/uL Normal 3.80-5.10 [facility] Comment on above: Performed By: #### 2 4317-0 #### [facility] [address] [place] [address] WBC (Bld) [#/Vol] 7.9 10*3/uL Normal 4.6-10.2 [facility] Comment on above: Performed By: #### 2 4317-0 #### [facility] [address] [place] [address] NM STRESS TEST WITH MYOCARDI AL PERFUSIONon [...] 71 109 78 161 85 1.0 67 77658.0 138 67 Normal [facility] Tropinin I.cardiac panel Hig h sensitivity methodon 04-06-2021 High Sensitivity Troponin I 9 ng/L Normal <14 [facility] Comment on above: Performed By: #### 8 9577-1 #### [facility] [address] [place] [address] Basic metabolic 2000 panelon 04-05-2021 High Sensitivity Troponin I 6 ng/L Normal <14 [facility] Comment on above: Performed By: #### 2 4321-2 #### [facility] [address] [place] [address] Hemogram and platelets WO di fferential panel (Bld)on 04-05-2021 Basophils (Bld) [#/Vol] 0.00 10*3/uL Normal 0.00-0.20 [facility] Comment on above: Performed By: #### 2 4317-0 #### [facility] [address] [place] [address] Basophils/100 WBC (Bld) 0.5 % Normal 0.0-2.0 [facility] Comment on above: Performed By: #### 2 4317-0 #### [facility] [address] [place] [address] Eosinophils (Bld) [#/Vol] 0.20 10*3/uL Normal 0.00-0.70 [facility] Comment on above: Performed By: #### 2 4317-0 #### [facility] [address] [place] [address] Eosinophils/100 WBC (Bld) 2.1 % Normal 0.0-7.0 [facility] Comment on above: Performed By: #### 2 4317-0 #### [facility] [address] [place] [address] Erythrocyte distribution width (RBC) [Ratio] 15.4 % High 11.0-14.8 [facility] Comment on above: Performed By: #### 2 4317-0 #### [facility] [address] [place] [address] Hematocrit (Bld) [Volume fraction] 33.6 % Low 35.0-45.0 [facility] Comment on above: Performed By: #### 2 4317-0 #### [facility] [address] [place] [address] Hemoglobin (Bld) [Mass/Vol] 11.1 g/dL Low 12.0-16.0 [facility] Comment on above: Performed By: #### 2 4317-0 #### [facility] [address] [place] [address] Lymphocytes (Bld) [#/Vol] 2.80 10*3/uL Normal 1.00-4.80 [facility] Comment on above: Performed By: #### 2 4317-0 #### [facility] [address] [place] [address] Lymphocytes/100 WBC (Bld) 28.2 % Normal 22.0-44.0 [facility] Comment on above: Performed By: #### 2 4317-0 #### [facility] [address] [place] [address] MCH 27.7 pcg Normal 27.0-34.0 [facility] Comment on above: Performed By: #### 2 4317-0 #### [facility] [address] [place] [address] MCHC (RBC) [Mass/Vol] 33.2 g/dL Normal 32.0-36.0 [place] [facility] Comment on above: Performed By: #### 2 4317-0 #### [facility] [address] [place] [address] MCV (RBC) [Entitic vol] 83.2 fL Normal 80.0-97.0 [facility] Comment on above: Performed By: #### 2 4317-0 #### [facility] [address] [place] [address] Monocytes (Bld) [#/Vol] 0.50 10*3/uL Normal 0.00-0.90 [facility] Comment on above: Performed By: #### 2 4317-0 #### [facility] [address] [place] [address] Monocytes/100 WBC (Bld) 5.2 % Normal 0.0-12.0 [facility] Comment on above: Performed By: #### 2 4317-0 #### [facility] [address] [place] [address] Neutrophils Absolute 6.30 K/mcL Normal 1.80-7.70 [facility] Comment on above: Performed By: #### 2 4317-0 #### [facility] [address] [place] [address] Neutrophils/100 WBC (Bld) 64.0 % Normal 40.0-70.0 [facility] Comment on above: Performed By: #### 2 4317-0 #### [facility] [address] [place] [address] Platelet mean volume (Bld) [Entitic vol] 6.9 fL Normal 6.2-12.1 [facility] Comment on above: Performed By: #### 2 4317-0 #### [facility] [address] [place] [address] Platelets (Bld) [#/Vol] 386 10*3/uL Normal 142-424 [facility] Comment on above: Performed By: #### 2 4317-0 #### [facility] [address] [place] [address] RBC (Bld) [#/Vol] 4.03 10*6/uL Normal 3.80-5.10 [facility] Comment on above: Performed By: #### 2 4317-0 #### [facility] [address] [place] [address] WBC (Bld) [#/Vol] 9.8 10*3/uL Normal 4.6-10.2 [facility] Comment on above: Performed By: #### 2 4317-0 #### [facility] [address] [place] [address] Natriuretic peptide B [Mass/ Vol]on 04-05-2021 BNP 44 pcg/mL Normal 0-100 [facility] Comment on above: Result Comment: <100 : CHF is unlikely 100-400: Possible left ventricular dysfunction-unlikely acute decompensation >400: Suspicious for decompensated heart failure Performed By: #### 3 0934-4 #### [facility] [address] [place] [address] SARS-CoV-2 RNA Resp Ql CAL+p robeon 04-05-2021 SARS-CoV-2 (COVID-19) RNA CAL+probe Ql (Resp) Not detected Normal Not Detected [facility] Comment on above: Performed By: #### 9 4500-6 #### [facility] [address] [place] [address] TRANSTHORACIC ECHOCARDIOGRAM (TTE) COMPLETE (CONTRAST/BUBBLE/3D PRN)on 04-05-2021 [...] 36 27 1.1 30 10 1.68 Normal [facility] Tropinin I.cardiac panel Hig h sensitivity methodon 04-05-2021 High Sensitivity Troponin I 12 ng/L Normal <14 [facility] Comment on above: Performed By: #### 8 9577-1 #### [facility] [address] [place] [address] Urinalysis dipstick W Reflex Culture panel (U)on 04-05-2021 Bilirubin, Urine Negative Normal Negative [facility] Comment on above: Performed By: #### 5 7019-2 #### [facility] [address] [place] [address] Blood, Urine Negative Normal Negative [facility] Comment on above: Performed By: #### 5 7019-2 #### [facility] [address] [place] [address] Clarity (U) Clear Normal Clear [facility] Comment on above: Performed By: #### 5 7019-2 #### [facility] [address] [place] [address] Color (U) Straw Abnormal Yellow [facility] Comment on above: Performed By: #### 5 7019-2 #### [facility] [address] [facility] [address] Glucose Ql (U) >=500 Abnormal Normal [facility] Comment on above: Performed By: #### 5 7019-2 #### [facility] [address] [facility] [address] Ketones Ql (U) Negative Normal Negative [facility] Comment on above: Performed By: #### 5 7019-2 #### [facility] [address] [facility] [address] Leukocytes, Urine Negative Normal Negative [facility] Comment on above: Performed By: #### 5 7019-2 #### [facility] [address] [facility] [address] Nitrite, Urine Negative Normal Negative [facility] Comment on above: Performed By: #### 5 7019-2 #### [facility] [address] [facility] [address] pH (U) 7.0 [pH] Normal 5.0-8.0 [facility] Comment on above: Performed By: #### 5 7019-2 #### [facility] [address] [facility] [address] Protein, Urine Negative Normal Negative [facility] Comment on above: Performed By: #### 5 7019-2 #### [facility] [address] [facility] [address] Specific [place] Urine 1.014 Normal 1.002-1.030 [facility] Comment on above: Performed By: #### 5 7019-2 #### [facility] [address] [facility] [address] Urobilinogen, Urine Normal Normal Normal [facility] Comment on above: Performed By: #### 5 7019-2 #### [facility] [address] [place] [address] XR CHEST 1 VIEWon 04-05-2021 XR CHEST [...] Self Edit Transcribed Date: 04/05/2021 14:59 Normal [facility] XR HAND LEFT 3+ VIEWSon XR HAND LEFT 3+ VIEWS EXAM TYPE: [...] the second, third and fourth fingers. Normal [facility] CBC(NO DIFF)on 03-15-2021 Erythrocyte distribution width (RBC) [Ratio] 15.2 % High 11.5-14.5 [facility] Comment on above: Performed By: #### H EMOG, CMPF, LIP2, RTSH, T42 #### [place] [address] Hematocrit (Bld) [Volume fraction] 34.3 % Low 36.0-48.0 [facility] Comment on above: Performed By: #### H EMOG, CMPF, LIP2, RTSH, T42 #### [place] [address] Hemoglobin (Bld) [Mass/Vol] 11.1 g/dL Low 12.0-16.0 [facility] Comment on above: Performed By: #### H EMOG, CMPF, LIP2, RTSH, T42 #### [place] [address] MCH (RBC) [Entitic mass] 27.0 pg Normal 26.0-35.0 [facility] Comment on above: Performed By: #### H EMOG, CMPF, LIP2, RTSH, T42 #### [place] [address] MCHC (RBC) [Mass/Vol] 32.4 g/dL Normal 27.0-37.0 [facility] Comment on above: Performed By: #### H EMOG, CMPF, LIP2, RTSH, T42 #### [place] [address] MCV (RBC) [Entitic vol] 83.4 fL Normal 80.0-100.0 [facility] Comment on above: Performed By: #### H EMOG, CMPF, LIP2, RTSH, T42 #### [place] [address] Platelet mean volume (Bld) [Entitic vol] 7.1 fL Low 7.4-11.0 [facility] Comment on above: Result Comment: Test ing performed at [place] [address] Performed By: #### H EMOG, CMPF, LIP2, RTSH, T42 #### Testing performed at [place] [id number] Platelets (Bld) [#/Vol] 339 10*3/uL Normal 130.0-400.0 [facility] Comment on above: Performed By: #### H EMOG, CMPF, LIP2, RTSH, T42 #### Testing performed at [place] [id number] RBC (Bld) [#/Vol] 4.11 10*6/uL Normal 4.0-5.4 [facility] Comment on above: Performed By: #### H EMOG, CMPF, LIP2, RTSH, T42 #### [place] [address] WBC (Bld) [#/Vol] 6.8 10*3/uL Normal 3.6-11.0 [facility] Comment on above: Performed By: #### H EMOG, CMPF, LIP2, RTSH, T42 #### [place] [address] CMP FASTINGon 03-15-2021 A:G RATIO 1.1 RATIO Low 1.3-2.2 [facility] Comment on above: Performed By: #### H EMOG, CMPF, LIP2, RTSH, T42 #### [place] [address] ALBUMIN 3.9 G/dl Normal 3.5-5.0 [facility] Comment on above: Performed By: #### H EMOG, CMPF, LIP2, RTSH, T42 #### [place] [address] ALP [Catalytic activity/Vol] 113 U/L Normal 38-126 [facility] Comment on above: Performed By: #### H EMOG, CMPF, LIP2, RTSH, T42 #### [place] [address] ALT [Catalytic activity/Vol] 14 U/L Normal <35 [facility] Comment on above: Performed By: #### H EMOG, CMPF, LIP2, RTSH, T42 #### [place] [address] AST [Catalytic activity/Vol] 19 U/L Normal 14-36 [facility] Comment on above: Performed By: #### H EMOG, CMPF, LIP2, RTSH, T42 #### Testing performed at [place] [id number] Bilirubin [Mass/Vol] 0.4 mg/dL Normal 0.2-1.3 [facility] Comment on above: Performed By: #### H EMOG, CMPF, LIP2, RTSH, T42 #### [place] [address] Calcium [Mass/Vol] 9.6 mg/dL Normal 8.4-10.2 [facility] Comment on above: Performed By: #### H EMOG, CMPF, LIP2, RTSH, T42 #### Testing performed at [place] [id number] Chloride [Moles/Vol] 105 mmol/L Normal 98-107 [facility] Comment on above: Result Comment: Plea se note: Triglyceride levels of 600mg/dL or higher may positively bias chloride results by approximately 2.1 mmol Performed By: #### H EMOG, CMPF, LIP2, RTSH, T42 #### Testing performed at [place] [id number] CO2 [Moles/Vol] 24 mmol/L Normal 22-30 [facility] Comment on above: Performed By: #### H EMOG, CMPF, LIP2, RTSH, T42 #### Testing performed at [place] [id number] Creatinine [Mass/Vol] 1.20 mg/dL Normal 0.7-1.2 [facility] Comment on above: Performed By: #### H EMOG, CMPF, LIP2, RTSH, T42 #### Testing performed at [address] [address] EST. GFR, 59 ml/min/1.73sq.m [facility] Comment on above: Performed By: #### H EMOG, CMPF, LIP2, RTSH, T42 #### Testing performed at [place] [id number] EST. GFR,Non 49 ml/min/1.73sq.m [facility] Comment on above: Performed By: #### H EMOG, CMPF, LIP2, RTSH, T42 #### [place] [address] GFR Information Average GFR for 50-5 9 years old = 93. [facility] Comment on above: Result Comment: [employer] [place] Kidney disease, GFR = <60. Kidney failure, GFR = <15. The GFR estimate is not adjusted for extreme body surface area or acute process, nor has it been validated for women or ethnic groups other than and . Testing performed at [place] [address] Performed By: #### H EMOG, CMPF, LIP2, RTSH, T42 #### Testing performed at [place] [id number] Glucose [Mass/Vol] 222 mg/dL High 70-100 [facility] Comment on above: Result Comment: NORMAL <100 mg/dL PREDIABETES 101-126 mg/dL DIABETES 126 mg/dL or higher Performed By: #### H EMOG, CMPF, LIP2, RTSH, T42 #### Testing performed at [place] [id number] Potassium [Moles/Vol] 4.5 mmol/L Normal 3.5-5.1 [facility] Comment on above: Performed By: #### H EMOG, CMPF, LIP2, RTSH, T42 #### Testing performed at [place] [id number] Protein [Mass/Vol] 7.3 g/dL Normal 6.3-8.2 [facility] Comment on above: Performed By: #### H EMOG, CMPF, LIP2, RTSH, T42 #### [place] [address] Sodium [Moles/Vol] 139 mmol/L Normal 137-145 [facility] Comment on above: Performed By: #### H EMOG, CMPF, LIP2, RTSH, T42 #### [place] [address] Urea nitrogen [Mass/Vol] 26 mg/dL High 7-20 [facility] Comment on above: Performed By: #### H EMOG, CMPF, LIP2, RTSH, T42 #### [place] [address] FREE T4on 03-15-2021 Free T4 [Mass/Vol] 1.07 ng/dL Normal 0.78-2.19 [facility] Comment on above: Result Comment: Test ing performed at [place] [address] Performed By: #### H EMOG, CMPF, LIP2, RTSH, T42 #### [place] [address] HEMOGLOBIN A1Con 03-15-2021 Glucose [Mass/Vol] 289 mg/dL Normal [facility] HbA1c (Bld) [Mass fraction] 11.7 % High 0-6 [facility] Comment on above: Result Comment: NORMAL <5.7% PREDIABETES 5.7-6.4% DIABETES 6.5% OR HIGHER LIPID PROFILEon 03-15-2021 Cholesterol [Mass/Vol] 226 mg/dL High 107-217 [facility] Comment on above: Performed By: #### H EMOG, CMPF, LIP2, RTSH, T42 #### [place] [address] Cholesterol in HDL [Mass/Vol] 48 mg/dL Normal 33-75 [facility] Comment on above: Performed By: #### H EMOG, CMPF, LIP2, RTSH, T42 #### Testing performed at [place] [id number] Cholesterol in LDL [Mass/Vol] 143 mg/dL Normal [facility] Comment on above: Performed By: #### H EMOG, CMPF, LIP2, RTSH, T42 #### [place] [address] Cholesterol in VLDL [Mass/Vol] 35 mg/dL High 5.0-25 [facility] Comment on above: Performed By: #### H EMOG, CMPF, LIP2, RTSH, T42 #### [place] [address] Cholesterol.total/Erika sterol in HDL [Mass ratio] 4.71 {ratio} Normal [facility] Comment on above: Result Comment: RISK TOTAL/HDL RATIO MEN WOMEN 1/2 AVERAGE 3.43 3.27 AVERAGE 4.97 4.44 2X AVERAGE 9.55 7.05 3X AVERAGE 23.99 11.04 Testing performed at [place] [address] Performed By: #### H EMOG, CMPF, LIP2, RTSH, T42 #### [place] [address] Triglyceride [Mass/Vol] 174 mg/dL High 0-150 [facility] Comment on above: Performed By: #### H EMOG, CMPF, LIP2, RTSH, T42 #### [place] [address] MALB/CREAT RATIO,URINEon MALB/CREAT RATIO,URINE 126.2 mg MALB/g CREAT High 1. 3-30.0 [facility] Comment on above: Result Comment: Test ing performed at [place] [address] Performed By: #### M CRAT #### Testing performed at [place] [id number] MICROALBUMIN,RANDOM URINE 133.1 mg/L High 0-16.7 [facility] Comment on above: Performed By: #### M CRAT #### Testing performed at [address] [place] [address] URINE CREATININE RANDOM 105.5 MG/DL Normal [facility] Comment on above: Result Comment: NO N ORMAL VALUES ESTABLISHED FOR RANDOM SPECIMENS Performed By: #### M CRAT #### Testing performed at [address] [address] TSH,REFLEX FREE T4on 022 TSH,REFLEX FREE T4 7.180 uIU/ML High 0.46-4.68 [facility] Comment on above: Result Comment: Test ing performed at [place] [address] Performed By: #### H EMOG, CMPF, LIP2, RTSH, T42 #### Testing performed at [address] [address] BUN CREAon 03-07-2021 Creatinine [Mass/Vol] 1.16 mg/dL Normal 0.50-1.20 [facility] Comment on above: Order Comment: Prior to first [facility] and every 2 weeks if baseline CR is within normal limits. Performed By: #### B CR #### [facility] (DEFAULT) [address] [address] EST GFR, 58 mL/min/1.73sqM Low >=60 [facility] Comment on above: Order Comment: Prior to first [facility] and every 2 weeks if baseline CR is within normal limits. Performed By: #### B CR #### [facility] (DEFAULT) [address] [address] EST GFR,Non 48 mL/min/1.73sqM Low >=60 [facility] Comment on above: Order Comment: Prior to first [facility] and every 2 weeks if baseline CR is within normal limits. Performed By: #### B CR #### [facility] (DEFAULT) [address] [address] Urea nitrogen [Mass/Vol] 19 mg/dL Normal 7-25 [facility] Comment on above: Order Comment: Prior to first [facility] and every 2 weeks if baseline CR is within normal limits. Performed By: #### B CR #### [facility] (DEFAULT) [address] [place] [address] Urea nitrogen/Creatinine [Mass ratio] 16 mg/mg Normal [facility] Comment on above: Order Comment: Prior to first [facility] and every 2 weeks if baseline CR is within normal limits. Performed By: #### B CR #### [facility] (DEFAULT) [address] [place] [address] CBC AND ELECTRONIC DIFFon Basophils (Bld) [#/Vol] 10*3/uL Normal 0.00-0.15 [facility] Comment on above: Order Comment: Prior to first [facility] and every 2 weeks if baseline CR is within normal limits. Performed By: #### B CR #### [facility] (DEFAULT) [address] [place] [address] Basophils/100 WBC (Bld) 0.2 % Normal [facility] Comment on above: Order Comment: Prior to first [facility] and every 2 weeks if baseline CR is within normal limits. Performed By: #### B CR #### [facility] (DEFAULT) [address] [address] DIFF STATUS Electronic Differential Normal [facility] Comment on above: Order Comment: Prior to first [facility] and every 2 weeks if baseline CR is within normal limits. Performed By: #### B CR #### [facility] (DEFAULT) [address] [place] [address] Eosinophils (Bld) [#/Vol] 0.21 10*3/uL Normal 0.00-0.42 [facility] Comment on above: Order Comment: Prior to first [facility] and every 2 weeks if baseline CR is within normal limits. Performed By: #### B CR #### [facility] (DEFAULT) [address] [place] [address] Eosinophils/100 WBC (Bld) 2.3 % Normal [facility] Comment on above: Order Comment: Prior to first [facility] and every 2 weeks if baseline CR is within normal limits. Performed By: #### B CR #### [facility] (DEFAULT) [address] [address] Hematocrit (Bld) [Volume fraction] 32.6 % Low 34.9-44.3 [facility] Comment on above: Order Comment: Prior to first [facility] and every 2 weeks if baseline CR is within normal limits. Performed By: #### B CR #### [facility] (DEFAULT) [address] [address] Hemoglobin (Bld) [Mass/Vol] 10.2 g/dL Low 11.4-15.2 [facility] Comment on above: Order Comment: Prior to first [facility] and every 2 weeks if baseline CR is within normal limits. Performed By: #### B CR #### [facility] (DEFAULT) [address] [address] Immature Grans % 0.2 % Normal [facility] Comment on above: Order Comment: Prior to first [facility] and every 2 weeks if baseline CR is within normal limits. Performed By: #### B CR #### [facility] (DEFAULT) [address] [address] Immature Grans Absolute <0.04 Normal <=0.09 [facility] Comment on above: Order Comment: Prior to first [facility] and every 2 weeks if baseline CR is within normal limits. Performed By: #### B CR #### [facility] (DEFAULT) [address] [address] Lymphocytes (Bld) [#/Vol] 2.26 10*3/uL Normal 1.16-3.51 [facility] Comment on above: Order Comment: Prior to first [facility] and every 2 weeks if baseline CR is within normal limits. Performed By: #### B CR #### [facility] (DEFAULT) [address] [address] Lymphocytes/100 WBC (Bld) 25.3 % Normal [facility] Comment on above: Order Comment: Prior to first [facility] and every 2 weeks if baseline CR is within normal limits. Performed By: #### B CR #### [facility] (DEFAULT) [address] [address] MCV (RBC) [Entitic vol] 86.2 fL Normal 79.6-97.7 [facility] Comment on above: Order Comment: Prior to first [facility] and every 2 weeks if baseline CR is within normal limits. Performed By: #### B CR #### [facility] (DEFAULT) [address] [address] Mean Cell Hgb 27.0 pg Normal 25.9-33.9 [facility] Comment on above: Order Comment: Prior to first [facility] and every 2 weeks if baseline CR is within normal limits. Performed By: #### B CR #### [facility] (DEFAULT) [address] [address] Mean Cell Hgb Conc 31.3 g/dL Low 31.4-35.9 [facility] Comment on above: Order Comment: Prior to first [facility] and every 2 weeks if baseline CR is within normal limits. Performed By: #### B CR #### [facility] (DEFAULT) [address] [address] Monocytes (Bld) [#/Vol] 0.44 10*3/uL Normal 0.22-0.87 [facility] Comment on above: Order Comment: Prior to first [facility] and every 2 weeks if baseline CR is within normal limits. Performed By: #### B CR #### [facility] (DEFAULT) [address] [address] Monocytes/100 WBC (Bld) 4.9 % Normal [facility] Comment on above: Order Comment: Prior to first [facility] and every 2 weeks if baseline CR is within normal limits. Performed By: #### B CR #### [facility] (DEFAULT) [address] [address] Nucleated RBC 0.0 /100 WBC Normal <=0.2 [facility] Comment on above: Order Comment: Prior to first [facility] and every 2 weeks if baseline CR is within normal limits. Performed By: #### B CR #### [facility] (DEFAULT) [address] [address] Platelet mean volume (Bld) [Entitic vol] 9.7 fL Normal 8.5-12.2 [facility] Comment on above: Order Comment: Prior to first [facility] and every 2 weeks if baseline CR is within normal limits. Performed By: #### B CR #### [facility] (DEFAULT) [address] [place] [address] Platelets (Bld) [#/Vol] 350 10*3/uL Normal 150-393 [facility] Comment on above: Order Comment: Prior to first [facility] and every 2 weeks if baseline CR is within normal limits. Performed By: #### B CR #### [facility] (DEFAULT) [address] [address] RBC (Bld) [#/Vol] 3.78 10*6/uL Low 3.91-5.04 [facility] Comment on above: Order Comment: Prior to first [facility] and every 2 weeks if baseline CR is within normal limits. Performed By: #### B CR #### [facility] (DEFAULT) [address] [place] [address] RBC Distribution 14.6 % Normal 10.8-14.9 [facility] Comment on above: Order Comment: Prior to first [facility] and every 2 weeks if baseline CR is within normal limits. Performed By: #### B CR #### [facility] (DEFAULT) [address] [address] Segs + Bands Auto 67.1 % Normal [facility] Comment on above: Order Comment: Prior to first [facility] and every 2 weeks if baseline CR is within normal limits. Performed By: #### B CR #### [facility] (DEFAULT) [address] [address] Segs + Bands,Absolute Auto 5.99 K/uL Normal 1.64-7.28 [facility] Comment on above: Order Comment: Prior to first [facility] and every 2 weeks if baseline CR is within normal limits. Performed By: #### B CR #### [facility] (DEFAULT) [address] [place] [address] WBC (Bld) [#/Vol] 8.94 10*3/uL Normal 3.99-11.19 [facility] Comment on above: Order Comment: Prior to first [facility] and every 2 weeks if baseline CR is within normal limits. Performed By: #### B CR #### [facility] (DEFAULT) [address] [address] BUN CREAon 02-21-2021 Creatinine [Mass/Vol] 1.19 mg/dL Normal 0.50-1.20 [facility] Comment on above: Order Comment: Prior to first [facility] and every 2 weeks if baseline CR is within normal limits. Performed By: #### B CR #### [facility] (DEFAULT) [address] [address] EST GFR, 56 mL/min/1.73sqM Low >=60 [facility] Comment on above: Order Comment: Prior to first [facility] and every 2 weeks if baseline CR is within normal limits. Performed By: #### B CR #### [facility] (DEFAULT) [address] [place] [address] EST GFR,Non 47 mL/min/1.73sqM Low >=60 [facility] Comment on above: Order Comment: Prior to first [facility] and every 2 weeks if baseline CR is within normal limits. Performed By: #### B CR #### [facility] (DEFAULT) [address] [place] [address] Urea nitrogen [Mass/Vol] 28 mg/dL High 7-25 [facility] Comment on above: Order Comment: Prior to first [facility] and every 2 weeks if baseline CR is within normal limits. Performed By: #### B CR #### [facility] (DEFAULT) [address] [address] Urea nitrogen/Creatinine [Mass ratio] 24 mg/mg Normal [facility] Comment on above: Order Comment: Prior to first [facility] and every 2 weeks if baseline CR is within normal limits. Performed By: #### B CR #### [facility] (DEFAULT) [address] [address] CBC AND ELECTRONIC DIFFon Basophils (Bld) [#/Vol] 0.05 10*3/uL Normal 0.00-0.15 [facility] Comment on above: Order Comment: Prior to first [facility] and every 2 weeks if baseline CR is within normal limits. Performed By: #### B CR #### [facility] (DEFAULT) [address] [address] Basophils/100 WBC (Bld) 0.6 % Normal [facility] Comment on above: Order Comment: Prior to first [facility] In[facility] and every 2 weeks if baseline CR is within normal limits. Performed By: #### B CR #### [facility] (DEFAULT) [address] [address] DIFF STATUS Electronic Differential Normal [facility] Comment on above: Order Comment: Prior to first [facility] and every 2 weeks if baseline CR is within normal limits. Performed By: #### B CR #### [facility] (DEFAULT) [address] [address] Eosinophils (Bld) [#/Vol] 0.16 10*3/uL Normal 0.00-0.42 [facility] Comment on above: Order Comment: Prior to first [facility] In[facility] and every 2 weeks if baseline CR is within normal limits. Performed By: #### B CR #### [facility] (DEFAULT) [address] [address] Eosinophils/100 WBC (Bld) 1.8 % Normal [facility] Comment on above: Order Comment: Prior to first [facility] Infusion and every 2 weeks if baseline CR is within normal limits. Performed By: #### B CR #### [facility] (DEFAULT) [address] [address] Hematocrit (Bld) [Volume fraction] 34.7 % Low 34.9-44.3 [facility] Comment on above: Order Comment: Prior to first [facility] In[facility] and every 2 weeks if baseline CR is within normal limits. Performed By: #### B CR #### [facility] (DEFAULT) [address] [address] Hemoglobin (Bld) [Mass/Vol] 11.0 g/dL Low 11.4-15.2 [facility] Comment on above: Order Comment: Prior to first [facility] Infusion and every 2 weeks if baseline CR is within normal limits. Performed By: #### B CR #### [facility] (DEFAULT) [address] [address] Immature Grans % 0.1 % Normal [facility] Comment on above: Order Comment: Prior to first [facility] Infusion and every 2 weeks if baseline CR is within normal limits. Performed By: #### B CR #### [facility] (DEFAULT) [address] [address] Immature Grans Absolute <0.04 Normal <=0.09 [facility] Comment on above: Order Comment: Prior to first [facility] Infusion and every 2 weeks if baseline CR is within normal limits. Performed By: #### B CR #### [facility] (DEFAULT) [address] [address] Lymphocytes (Bld) [#/Vol] 2.61 10*3/uL Normal 1.16-3.51 [facility] Comment on above: Order Comment: Prior to first [facility] Infusion and every 2 weeks if baseline CR is within normal limits. Performed By: #### B CR #### [facility] (DEFAULT) [address] [address] Lymphocytes/100 WBC (Bld) 29.4 % Normal [facility] Comment on above: Order Comment: Prior to first [facility] Infusion and every 2 weeks if baseline CR is within normal limits. Performed By: #### B CR #### [facility] (DEFAULT) [address] [address] MCV (RBC) [Entitic vol] 85.5 fL Normal 79.6-97.7 [facility] Comment on above: Order Comment: Prior to first [facility] Infusion and every 2 weeks if baseline CR is within normal limits. Performed By: #### B CR #### [facility] (DEFAULT) [address] [address] Mean Cell Hgb 27.1 pg Normal 25.9-33.9 [facility] Comment on above: Order Comment: Prior to first [facility] Infusion and every 2 weeks if baseline CR is within normal limits. Performed By: #### B CR #### [facility] (DEFAULT) [address] [address] Mean Cell Hgb Conc 31.7 g/dL Normal 31.4-35.9 [facility] Comment on above: Order Comment: Prior to first [facility] Infusion and every 2 weeks if baseline CR is within normal limits. Performed By: #### B CR #### [facility] (DEFAULT) [address] [address] Monocytes (Bld) [#/Vol] 0.39 10*3/uL Normal 0.22-0.87 [facility] Comment on above: Order Comment: Prior to first [facility] Infusion and every 2 weeks if baseline CR is within normal limits. Performed By: #### B CR #### [facility] (DEFAULT) [address] [place] [address] Monocytes/100 WBC (Bld) 4.4 % Normal [facility] Comment on above: Order Comment: Prior to first [facility] Infusion and every 2 weeks if baseline CR is within normal limits. Performed By: #### B CR #### [facility] (DEFAULT) [address] [address] Nucleated RBC 0.0 /100 WBC Normal <=0.2 [facility] Comment on above: Order Comment: Prior to first [facility] Infusion and every 2 weeks if baseline CR is within normal limits. Performed By: #### B CR #### [facility] (DEFAULT) [address] [address] Platelet mean volume (Bld) [Entitic vol] 9.7 fL Normal 8.5-12.2 [facility] Comment on above: Order Comment: Prior to first [facility] Infusion and every 2 weeks if baseline CR is within normal limits. Performed By: #### B CR #### [facility] (DEFAULT) [address] [address] Platelets (Bld) [#/Vol] 383 10*3/uL Normal 150-393 [facility] Comment on above: Order Comment: Prior to first [facility] Infusion and every 2 weeks if baseline CR is within normal limits. Performed By: #### B CR #### [facility] (DEFAULT) [address] [address] RBC (Bld) [#/Vol] 4.06 10*6/uL Normal 3.91-5.04 [facility] Comment on above: Order Comment: Prior to first [facility] Infusion and every 2 weeks if baseline CR is within normal limits. Performed By: #### B CR #### [facility] (DEFAULT) [address] [address] RBC Distribution 14.5 % Normal 10.8-14.9 [facility] Comment on above: Order Comment: Prior to first [facility] Infusion and every 2 weeks if baseline CR is within normal limits. Performed By: #### B CR #### [facility] (DEFAULT) [address] [address] Segs + Bands Auto 63.7 % Normal [facility] Comment on above: Order Comment: Prior to first [facility] Infusion and every 2 weeks if baseline CR is within normal limits. Performed By: #### B CR #### [facility] (DEFAULT) [address] [address] Segs + Bands,Absolute Auto 5.66 K/uL Normal 1.64-7.28 [facility] Comment on above: Order Comment: Prior to first [facility] Infusion and every 2 weeks if baseline CR is within normal limits. Performed By: #### B CR #### [facility] (DEFAULT) [address] [address] WBC (Bld) [#/Vol] 8.88 10*3/uL Normal 3.99-11.19 [facility] Comment on above: Order Comment: Prior to first [facility] Infusion and every 2 weeks if baseline CR is within normal limits. Performed By: #### B CR #### [facility] (DEFAULT) [address] [address] OCT/HRT [place] OUon 02-15-20 21 OCT/HRT [place] OU Right Eye Quality was good. Findings include subretinal fluid. Interval change is better. Recommendation for management is to continue treatment. Left Eye Quality was good. Findings include subretinal fluid. Interval change is better. Recommendation for management is to continue treatment. Normal [facility] BUN CREAon 02-07-2021 Creatinine [Mass/Vol] 1.20 mg/dL Normal 0.50-1.20 [facility] above: Order Comment: Prior to first [facility] Infusion and every 2 weeks if baseline CR is within normal limits. Performed By: #### B CR #### [facility] (DEFAULT) [address] [address] EST GFR, 56 mL/min/1.73sqM Low >=60 [facility] Comment on above: Order Comment: Prior to first [facility] Infusion and every 2 weeks if baseline CR is within normal limits. Performed By: #### B CR #### [facility] (DEFAULT) [address] [address] EST GFR,Non 46 mL/min/1.73sqM Low >=60 [facility] Comment on above: Order Comment: Prior to first [facility] Infusion and every 2 weeks if baseline CR is within normal limits. Performed By: #### B CR #### [facility] (DEFAULT) [address] [address] Urea nitrogen [Mass/Vol] 21 mg/dL Normal 09-07 [facility] Comment on above: Order Comment: Prior to first [facility] Infusion and every 2 weeks if baseline CR is within normal limits. Performed By: #### B CR #### [facility] (DEFAULT) [address] [address] Urea nitrogen/Creatinine [Mass ratio] 18 mg/mg Normal [facility] Comment on above: Order Comment: Prior to first [facility] Infusion and every 2 weeks if baseline CR is within normal limits. Performed By: #### B CR #### [facility] (DEFAULT) [address] [address] CBC AND ELECTRONIC DIFFon Basophils (Bld) [#/Vol] 0.05 10*3/uL Normal 0.00-0.15 [facility] Comment on above: Order Comment: Prior to first [facility] Infusion and then every 2 weeks.until results within normal limits. Collect weekly if baseline is abnormal. Performed By: #### L [id number] #### [facility] (DEFAULT) [address] [address] Basophils/100 WBC (Bld) 0.5 % Normal [facility] Comment on above: Order Comment: Prior to first [facility] Infusion and then every 2 weeks.until results within normal limits. Collect weekly if baseline is abnormal. Performed By: #### L [id number] #### [facility] (DEFAULT) [address] [address] DIFF STATUS Electronic Differential Normal [facility] Comment on above: Order Comment: Prior to first [facility] Infusion and then every 2 weeks.until results within normal limits. Collect weekly if baseline is abnormal. Performed By: #### L [id number] #### [facility] (DEFAULT) [address] [address] Eosinophils (Bld) [#/Vol] 0.31 10*3/uL Normal 0.00-0.42 [facility] Comment on above: Order Comment: Prior to first [facility] Infusion and then every 2 weeks.until results within normal limits. Collect weekly if baseline is abnormal. Performed By: #### L [id number] #### [facility] (DEFAULT) [address] [address] Eosinophils/100 WBC (Bld) 3.3 % Normal [facility] Comment on above: Order Comment: Prior to first [facility] Infusion and then every 2 weeks.until results within normal limits. Collect weekly if baseline is abnormal. Performed By: #### L [id number] #### [facility] (DEFAULT) [address] [address] Hematocrit (Bld) [Volume fraction] 33.5 % Low 34.9-44.3 [facility] Comment on above: Order Comment: Prior to first [facility] Infusion and then every 2 weeks.until results within normal limits. Collect weekly if baseline is abnormal. Performed By: #### L [id number] #### [facility] (DEFAULT) [address] [address] Hemoglobin (Bld) [Mass/Vol] 10.5 g/dL Low 11.4-15.2 [facility] Comment on above: Order Comment: Prior to first [facility] Infusion and then every 2 weeks.until results within normal limits. Collect weekly if baseline is abnormal. Performed By: #### L [id number] #### [facility] (DEFAULT) [address] [address] Immature Grans % 0.2 % Normal [facility] Comment on above: Order Comment: Prior to first [facility] Infusion and then every 2 weeks.until results within normal limits. Collect weekly if baseline is abnormal. Performed By: #### L [id number] #### [facility] (DEFAULT) [address] [address] Immature Grans Absolute <0.04 Normal <=0.09 [facility] Comment on above: Order Comment: Prior to first [facility] Infusion and then every 2 weeks.until results within normal limits. Collect weekly if baseline is abnormal. Performed By: #### L [id number] #### [facility] (DEFAULT) [address] [address] Lymphocytes (Bld) [#/Vol] 2.84 10*3/uL Normal 1.16-3.51 [facility] Comment on above: Order Comment: Prior to first [facility] Infusion and then every 2 weeks.until results within normal limits. Collect weekly if baseline is abnormal. Performed By: #### L [id number] #### [facility] (DEFAULT) [address] [address] Lymphocytes/100 WBC (Bld) 30.6 % Normal [facility] Comment on above: Order Comment: Prior to first [facility] Infusion and then every 2 weeks.until results within normal limits. Collect weekly if baseline is abnormal. Performed By: #### L [id number] #### [facility] (DEFAULT) [address] [address] MCV (RBC) [Entitic vol] 85.7 fL Normal 79.6-97.7 [facility] Comment on above: Order Comment: Prior to first [facility] Infusion and then every 2 weeks.until results within normal limits. Collect weekly if baseline is abnormal. Performed By: #### L [id number] #### [facility] (DEFAULT) [address] [address] Mean Cell Hgb 26.9 pg Normal 25.9-33.9 [facility] Comment on above: Order Comment: Prior to first [facility] Infusion and then every 2 weeks.until results within normal limits. Collect weekly if baseline is abnormal. Performed By: #### L [id number] #### [facility] (DEFAULT) [address] [address] Mean Cell Hgb Conc 31.3 g/dL Low 31.4-35.9 [facility] Comment on above: Order Comment: Prior to first [facility] Infusion and then every 2 weeks.until results within normal limits. Collect weekly if baseline is abnormal. Performed By: #### L [id number] #### [facility] (DEFAULT) [address] [address] Monocytes (Bld) [#/Vol] 0.42 10*3/uL Normal 0.22-0.87 [facility] Comment on above: Order Comment: Prior to first [facility] Infusion and then every 2 weeks.until results within normal limits. Collect weekly if baseline is abnormal. Performed By: #### L [id number] #### [facility] (DEFAULT) [address] [address] Monocytes/100 WBC (Bld) 4.5 % Normal [facility] Comment on above: Order Comment: Prior to first [facility] Infusion and then every 2 weeks.until results within normal limits. Collect weekly if baseline is abnormal. Performed By: #### L [id number] #### [facility] (DEFAULT) [address] [address] Nucleated RBC 0.0 /100 WBC Normal <=0.2 [facility] Comment on above: Order Comment: Prior to first [facility] Infusion and then every 2 weeks.until results within normal limits. Collect weekly if baseline is abnormal. Performed By: #### L [id number] #### [facility] (DEFAULT) [address] [address] Platelet mean volume (Bld) [Entitic vol] 9.3 fL Normal 8.5-12.2 [facility] Comment on above: Order Comment: Prior to first [facility] Infusion and then every 2 weeks.until results within normal limits. Collect weekly if baseline is abnormal. Performed By: #### L [id number] #### [facility] (DEFAULT) [address] [address] Platelets (Bld) [#/Vol] 398 10*3/uL High 150-393 [facility] Comment on above: Order Comment: Prior to first [facility] Infusion and then every 2 weeks.until results within normal limits. Collect weekly if baseline is abnormal. Performed By: #### L [id number] #### [facility] (DEFAULT) [address] [address] RBC (Bld) [#/Vol] 3.91 10*6/uL Normal 3.91-5.04 [facility] Comment on above: Order Comment: Prior to first [facility] Infusion and then every 2 weeks.until results within normal limits. Collect weekly if baseline is abnormal. Performed By: #### L [id number] #### [facility] (DEFAULT) [address] [address] RBC Distribution 14.5 % Normal 10.8-14.9 [facility] Comment on above: Order Comment: Prior to first [facility] Infusion and then every 2 weeks.until results within normal limits. Collect weekly if baseline is abnormal. Performed By: #### L [id number] #### [facility] (DEFAULT) [address] [address] Segs + Bands Auto 60.9 % Normal [facility] Comment on above: Order Comment: Prior to first [facility] Infusion and then every 2 weeks.until results within normal limits. Collect weekly if baseline is abnormal. Performed By: #### L [id number] #### [facility] (DEFAULT) [address] [address] Segs + Bands,Absolute Auto 5.63 K/uL Normal 1.64-7.28 [facility] Comment on above: Order Comment: Prior to first [facility] Infusion and then every 2 weeks.until results within normal limits. Collect weekly if baseline is abnormal. Performed By: #### L [id number] #### [facility] (DEFAULT) [address] [address] WBC (Bld) [#/Vol] 9.27 10*3/uL Normal 3.99-11.19 [facility] Comment on above: Order Comment: Prior to first [facility] Infusion and then every 2 weeks.until results within normal limits. Collect weekly if baseline is abnormal. Performed By: #### L [id number] #### [facility] ([facility]) [address] [address] B HYDROXYBUTYRATEon 01-15-20 21 B HYDROXYBUTYRATE 0.08 MMOL/L Normal 0.02-0.27 [facility] Comment on above: Performed By: #### C MPF, BHB, ACBC #### Testing performed at [address] [address] CBCon 01-14-2021 ABSOLUTE BAS 0.0 10*3/uL Normal 0.0-0.2 [facility]3] Comment on above: Performed By: #### C MPF, BHB, ACBC #### Testing performed at [address] [address] ABSOLUTE EOS 0.20 10*3/uL Normal 0.0-0.7 [facility] Comment on above: Performed By: #### C MPF, BHB, ACBC #### Testing performed at [address] [address] ABSOLUTE NEUTROPHIL COUNT 4.9 10*3/uL Normal 1.4-6.5 [facility] Comment on above: Performed By: #### C MPF, BHB, ACBC #### Testing performed at [address] [address] Basophils/100 WBC (Bld) 0.4 % Normal 0.0-2.0 [facility] Comment on above: Performed By: #### C MPF, BHB, ACBC #### Testing performed at [address] [address] DTYPE AUTO DIFF Normal [facility] Comment on above: Performed By: #### C MPF, BHB, ACBC #### Testing performed at [address] [address] Eosinophils/100 WBC (Bld) 2.3 % Normal 0.0-11.0 [facility] Comment on above: Performed By: #### C MPF, BHB, ACBC #### Testing performed at [address] [address] Lymphocytes (Bld) [#/Vol] 2.10 10*3/uL Normal 1.2-3.4 [facility] Comment on above: Performed By: #### C MPF, BHB, ACBC #### Testing performed at [address] [address] Lymphocytes/100 WBC (Bld) 27.2 % Normal 20.0-55.0 [facility] Comment on above: Performed By: #### C MPF, BHB, ACBC #### Testing performed at [address] [address] Monocytes (Bld) [#/Vol] 0.6 10*3/uL Normal 0.0-0.7 [facility] Comment on above: Performed By: #### C MPF, BHB, ACBC #### Testing performed at [address] [address] Monocytes/100 WBC (Bld) 7.5 % Normal 0.0-10.0 [facility] Comment on above: Performed By: #### C MPF, BHB, ACBC #### Testing performed at [address] [address] Neutrophils/100 WBC (Bld) 62.6 % Normal 37.0-75.0 [facility] Comment on above: Performed By: #### C MPF, BHB, ACBC #### Testing performed at [address] [address] Erythrocyte distribution width (RBC) [Ratio] 15.6 % High 11.5-14.5 [facility] Comment on above: Performed By: #### C MPF, BHB, ACBC #### Testing performed at [address] [address] Hematocrit (Bld) [Volume fraction] 32.7 % Low 36.0-48.0 [facility] Comment on above: Performed By: #### C MPF, BHB, ACBC #### Testing performed at [address] [address] Hemoglobin (Bld) [Mass/Vol] 10.8 g/dL Low 12.0-16.0 [facility] Comment on above: Performed By: #### C MPF, BHB, ACBC #### Testing performed at [address] [address] MCH (RBC) [Entitic mass] 27.3 pg Normal 26.0-35.0 [facility] Comment on above: Performed By: #### C MPF, BHB, ACBC #### Testing performed at [address] [address] MCHC (RBC) [Mass/Vol] 33.1 g/dL Normal 27.0-37.0 [facility] Comment on above: Performed By: #### C MPF, BHB, ACBC #### Testing performed at [address] [address] MCV (RBC) [Entitic vol] 82.5 fL Normal 80.0-100.0 [facility] Comment on above: Performed By: #### C MPF, BHB, ACBC #### Testing performed at [address] [address] Platelet mean volume (Bld) [Entitic vol] 7.1 fL Low 7.4-11.0 [facility] Comment on above: Performed By: #### C MPF, BHB, ACBC #### Testing performed at [address] [address] Platelets (Bld) [#/Vol] 359 10*3/uL Normal 130.0-400.0 [facility] Comment on above: Performed By: #### C MPF, BHB, ACBC #### Testing performed at [address] [address] RBC (Bld) [#/Vol] 3.96 10*6/uL Low 4.0-5.4 [facility] Comment on above: Performed By: #### C MPF, BHB, ACBC #### Testing performed at [address] [address] WBC (Bld) [#/Vol] 7.8 10*3/uL Normal 3.6-11.0 [facility] Comment on above: Performed By: #### C MPF, BHB, ACBC #### Testing performed at [address] [address] CMP FASTINGon 01-14-2021 A:G RATIO 1.0 RATIO Low 1.3-2.2 [facility] Comment on above: Performed By: #### C MPF, BHB, ACBC #### Testing performed at [address] [address] ALBUMIN 3.9 G/dl Normal 3.5-5.0 [facility] Comment on above: Performed By: #### C MPF, BHB, ACBC #### Testing performed at [address] [address] ALP [Catalytic activity/Vol] 117 U/L Normal 38-126 [facility] Comment on above: Performed By: #### C MPF, BHB, ACBC #### Testing performed at [address] [address] ALT [Catalytic activity/Vol] 24 U/L Normal 14-54 [facility] Comment on above: Performed By: #### C MPF, BHB, ACBC #### Testing performed at [address] [address] AST [Catalytic activity/Vol] 22 U/L Normal 15-41 [facility] Comment on above: Performed By: #### C MPF, BHB, ACBC #### Testing performed at [address] [address] Bilirubin [Mass/Vol] 0.4 mg/dL Normal 0.2-1.2 [facility] Comment on above: Performed By: #### C MPF, BHB, ACBC #### Testing performed at [address] [address] Calcium [Mass/Vol] 9.0 mg/dL Normal 8.4-10.2 [facility] Comment on above: Performed By: #### C MPF, BHB, ACBC #### Testing performed at [address] [address] Chloride [Moles/Vol] 101 mmol/L Normal 98-107 [facility] Comment on above: Performed By: #### C MPF, BHB, ACBC #### Testing performed at [address] [address] CO2 [Moles/Vol] 23 mmol/L Normal 22-30 [facility] Comment on above: Performed By: #### C MPF, BHB, ACBC #### Testing performed at [address] [address] Creatinine [Mass/Vol] 1.40 mg/dL High 0.52-1.04 [facility] Comment on above: Performed By: #### C MPF, BHB, ACBC #### Testing performed at [address] [address] EST. GFR, 50 ml/min/1.73sq.m [facility] Comment on above: Performed By: #### C MPF, BHB, ACBC #### Testing performed at [place] [id number] EST. GFR,Non 41 ml/min/1.73sq.m [facility] Comment on above: Performed By: #### C MPF, BHB, ACBC #### Testing performed at [address] [address] GFR Information Average GFR for 50-5 9 years old = 93. Normal [facility] Comment on above: Result Comment: Frozen [employer] Maker garfield Kidney disease, GFR = <60. Kidney failure, GFR = <15. The GFR estimate is not adjusted for extreme body surface area or acute process, nor has it been validated for women or ethnic groups other than and . Performed By: #### C MPF, BHB, ACBC #### Testing performed at [address] [address] Glucose [Mass/Vol] 457 mg/dL Critically high 70-100 [facility] Comment on above: Result Comment: NORMAL <100 mg/dL PREDIABETES 101-126 mg/dL DIABETES 126 mg/dL or higher Result called to read back by: Malvin WOODY 01/13/2021 @ 22:34 by CHARLES Performed By: #### C MPF, BHB, ACBC #### Testing performed at [address] [address] Potassium [Moles/Vol] 4.6 mmol/L Normal 3.5-5.1 [facility] Comment on above: Performed By: #### C MPF, BHB, ACBC #### Testing performed at [address] [address] Protein [Mass/Vol] 7.9 g/dL Normal 6.3-8.2 [facility] Comment on above: Performed By: #### C MPF, BHB, ACBC #### Testing performed at [address] [address] Sodium [Moles/Vol] 134 mmol/L Low 136-145 [facility] Comment on above: Performed By: #### C MPF, BHB, ACBC #### Testing performed at [address] [address] Urea nitrogen [Mass/Vol] 36 mg/dL High 7-20 [facility] Comment on above: Performed By: #### C MPF, BHB, ACBC #### Testing performed at [address] [address] POCT GLUCOSEon 01-14-2021 Glucose [Mass/Vol] 391 mg/dL High 70-100 [facility] [employer] [id number] Normal [facility] Glucose [Mass/Vol] 217 mg/dL High 70-100 [facility] [employer] [id number] Normal [facility] URINE MACROSCOPICon 01-15-20 21 Bilirubin Ql (U) Negative Normal NEGATIVE [facility] Comment on above: Performed By: #### U MAC, UMIC #### Testing performed at [address] [address] Clarity (U) CLEAR Normal CLEAR [facility] Comment on above: Performed By: #### U MAC, UMIC #### Testing performed at [address] [address] Color (U) YELLOW Normal YELLOW [facility] Comment on above: Performed By: #### U MAC, UMIC #### Testing performed at [address] [address] Glucose Ql (U) 500 mg/dl Abnormal NEGATIVE [facility] Comment on above: Performed By: #### U MAC, UMIC #### Testing performed at [address] [address] pH (U) 6.0 [pH] Normal 5.0-7.0 [facility] Comment on above: Performed By: #### U MAC, UMIC #### Testing performed at [address] [address] URINE HEMOGLOBIN TRACE-INTACT Abnormal NEGATIVE [facility] Comment on above: Performed By: #### U MAC, UMIC #### Testing performed at [address] [address] URINE KETONE Negative Normal NEGATIVE [facility] Comment on above: Performed By: #### U MAC, UMIC #### Testing performed at [address] [address] URINE LEUKOTEST Negative Normal NEGATIVE [facility] Comment on above: Performed By: #### U MAC, UMIC #### Testing performed at [address] [address] URINE NITRATES Negative Normal NEGATIVE [facility] Comment on above: Performed By: #### U MAC, UMIC #### Testing performed at [address] [address] URINE SPEC GRAVITY 1.015 Normal 1.010-1.025 [facility] Comment on above: Performed By: #### U MAC, UMIC #### Testing performed at [address] [address] URINE TOTAL PROTEIN Negative Normal NEGATIVE [facility] Comment on above: Performed By: #### U MAC, UMIC #### Testing performed at [address] [address] Urobilinogen Qn (U) 0.2 {Rikki'U}/dL Normal 0.2-1.0 [facility] Comment on above: Performed By: #### U MAC, UMIC #### Testing performed at [address] [address] URINE MICROSCOPICon -28-20 21 Bacteria LM.HPF (Urine sed) [#/Area] Negative Normal NEGATIVE [facility] Comment on above: Performed By: #### U MAC, UMIC #### Testing performed at [address] [address] CASTS NONE Normal NONE [facility] Comment on above: Performed By: #### U MAC, UMIC #### Testing performed at [address] [address] CRYSTAL NONE Normal NONE [facility] Comment on above: Performed By: #### U MAC, UMIC #### Testing performed at [address] [address] Epithelial cells LM Ql (Urine sed) 1 TO 5 Normal [facility] Comment on above: Performed By: #### U MAC, UMIC #### Testing performed at [address] [address] Mucus Ql (Urine sed) Negative Normal NEGATIVE [facility] Comment on above: Performed By: #### U MAC, UMIC #### [place] [address] URINE COMMENT CULTURE CRITERIA NOT MET, NO CULTURE PERFORMED. Normal [facility] Comment on above: Performed By: #### U MAC, UMIC #### Testing performed at [address] [address] URINE RBC'S Negative Normal NEGATIVE [facility] Comment on above: Performed By: #### U MAC, UMIC #### Testing performed at [address] [address] URINE WBC'S Negative Normal NEGATIVE [facility] Comment on above: Performed By: #### U MAC, UMIC #### Testing performed at [address] [address] BUN CREAon 01-10-2021 Creatinine [Mass/Vol] 1.22 mg/dL High 0.50-1.20 [facility] Comment on above: Order Comment: Prior to first [facility] and every 2 weeks if baseline CR is within normal limits. Performed By: #### B CR #### [facility] (DEFAULT) [address] [place] [address] EST GFR, 55 mL/min/1.73sqM Low >=60 [facility] Comment on above: Order Comment: Prior to first [facility] and every 2 weeks if baseline CR is within normal limits. Performed By: #### B CR #### [facility] (DEFAULT) [address] [address] EST GFR,Non 45 mL/min/1.73sqM Low >=60 [facility] Comment on above: Order Comment: Prior to first [facility] and every 2 weeks if baseline CR is within normal limits. Performed By: #### B CR #### [facility] (DEFAULT) [address] [address] Urea nitrogen [Mass/Vol] 20 mg/dL Normal - [facility] Comment on above: Order Comment: Prior to first [facility] and every 2 weeks if baseline CR is within normal limits. Performed By: #### B CR #### [facility] (DEFAULT) [address] [address] Urea nitrogen/Creatinine [Mass ratio] 16 mg/mg Normal [facility] Comment on above: Order Comment: Prior to first [facility] and every 2 weeks if baseline CR is within normal limits. Performed By: #### B CR #### [facility] (DEFAULT) [address] [address] CBC AND ELECTRONIC DIFFon Basophils (Bld) [#/Vol] 10*3/uL Normal 0.00-0.15 [facility] Comment on above: Order Comment: Prior to first [facility] and then every 2 weeks.until results within normal limits. Collect weekly if baseline is abnormal. Performed By: #### L [id number] #### [facility] (DEFAULT) [address] [address] Basophils/100 WBC (Bld) 0.4 % Normal [facility] Comment on above: Order Comment: Prior to first [facility] and then every 2 weeks.until results within normal limits. Collect weekly if baseline is abnormal. Performed By: #### L [id number] #### [facility] (DEFAULT) [address] [address] DIFF STATUS Electronic Differential Normal [facility] Comment on above: Order Comment: Prior to first [facility] and then every 2 weeks.until results within normal limits. Collect weekly if baseline is abnormal. Performed By: #### L [id number] #### [facility] (DEFAULT) [address] [address] Eosinophils (Bld) [#/Vol] 0.16 10*3/uL Normal 0.00-0.42 [facility] Comment on above: Order Comment: Prior to first [facility] and then every 2 weeks.until results within normal limits. Collect weekly if baseline is abnormal. Performed By: #### L [id number] #### [facility] (DEFAULT) [address] [address] Eosinophils/100 WBC (Bld) 2.1 % Normal [facility] Comment on above: Order Comment: Prior to first [facility] and then every 2 weeks.until results within normal limits. Collect weekly if baseline is abnormal. Performed By: #### L [id number] #### [facility] (DEFAULT) [address] [address] Hematocrit (Bld) [Volume fraction] 32.0 % Low 34.9-44.3 [facility] Comment on above: Order Comment: Prior to first [facility] and then every 2 weeks.until results within normal limits. Collect weekly if baseline is abnormal. Performed By: #### L [id number] #### [facility] (DEFAULT) [address] [address] Hemoglobin (Bld) [Mass/Vol] 10.1 g/dL Low 11.4-15.2 [facility] Comment on above: Order Comment: Prior to first [facility] and then every 2 weeks.until results within normal limits. Collect weekly if baseline is abnormal. Performed By: #### L [id number] #### [facility] (DEFAULT) [address] [address] Immature Grans % 0.3 % Normal [facility] Comment on above: Order Comment: Prior to first [facility] and then every 2 weeks.until results within normal limits. Collect weekly if baseline is abnormal. Performed By: #### L [id number] #### [facility] (DEFAULT) [address] [address] Immature Grans Absolute <0.04 Normal <=0.09 [facility] Comment on above: Order Comment: Prior to first [facility] and then every 2 weeks.until results within normal limits. Collect weekly if baseline is abnormal. Performed By: #### L [id number] #### [facility] (DEFAULT) [address] [address] Lymphocytes (Bld) [#/Vol] 2.23 10*3/uL Normal 1.16-3.51 [facility] Comment on above: Order Comment: Prior to first [facility] and then every 2 weeks.until results within normal limits. Collect weekly if baseline is abnormal. Performed By: #### L [id number] #### [facility] (DEFAULT) [address] [address] Lymphocytes/100 WBC (Bld) 28.8 % Normal [facility] Comment on above: Order Comment: Prior to first [facility] and then every 2 weeks.until results within normal limits. Collect weekly if baseline is abnormal. Performed By: #### L [id number] #### [facility] (DEFAULT) [address] [address] MCV (RBC) [Entitic vol] 86.0 fL Normal 79.6-97.7 [facility] Comment on above: Order Comment: Prior to first [facility] and then every 2 weeks.until results within normal limits. Collect weekly if baseline is abnormal. Performed By: #### L [id number] #### [facility] (DEFAULT) [address] [address] Mean Cell Hgb 27.2 pg Normal 25.9-33.9 [facility] Comment on above: Order Comment: Prior to first [facility] and then every 2 weeks.until results within normal limits. Collect weekly if baseline is abnormal. Performed By: #### L [id number] #### [facility] (DEFAULT) [address] [address] Mean Cell Hgb Conc 31.6 g/dL Normal 31.4-35.9 [facility] Comment on above: Order Comment: Prior to first [facility] and then every 2 weeks.until results within normal limits. Collect weekly if baseline is abnormal. Performed By: #### L [id number] #### [facility] (DEFAULT) [address] [address] Monocytes (Bld) [#/Vol] 0.38 10*3/uL Normal 0.22-0.87 [facility] Comment on above: Order Comment: Prior to first [facility] and then every 2 weeks.until results within normal limits. Collect weekly if baseline is abnormal. Performed By: #### L [id number] #### [facility] (DEFAULT) [address] [address] Monocytes/100 WBC (Bld) 4.9 % Normal [facility] Comment on above: Order Comment: Prior to first [facility] and then every 2 weeks.until results within normal limits. Collect weekly if baseline is abnormal. Performed By: #### L [id number] #### [facility] (DEFAULT) [address] [address] Nucleated RBC 0.0 /100 WBC Normal <=0.2 [facility] Comment on above: Order Comment: Prior to first [facility] and then every 2 weeks.until results within normal limits. Collect weekly if baseline is abnormal. Performed By: #### L [id number] #### [facility] (DEFAULT) [address] [address] Platelet mean volume (Bld) [Entitic vol] 9.4 fL Normal 8.5-12.2 [facility] Comment on above: Order Comment: Prior to first [facility] and then every 2 weeks.until results within normal limits. Collect weekly if baseline is abnormal. Performed By: #### L [id number] #### [facility] (DEFAULT) [address] [address] Platelets (Bld) [#/Vol] 352 10*3/uL Normal 150-393 [facility] Comment on above: Order Comment: Prior to first [facility] and then every 2 weeks.until results within normal limits. Collect weekly if baseline is abnormal. Performed By: #### L [id number] #### [facility] (DEFAULT) [address] [address] RBC (Bld) [#/Vol] 3.72 10*6/uL Low 3.91-5.04 [facility] Comment on above: Order Comment: Prior to first [facility] and then every 2 weeks.until results within normal limits. Collect weekly if baseline is abnormal. Performed By: #### L [id number] #### [facility] (DEFAULT) [address] [address] RBC Distribution 15.3 % High 10.8-14.9 [facility] Comment on above: Order Comment: Prior to first [facility] and then every 2 weeks.until results within normal limits. Collect weekly if baseline is abnormal. Performed By: #### L [id number] #### [facility] (DEFAULT) [address] [address] Segs + Bands Auto 63.5 % Normal [facility] Comment on above: Order Comment: Prior to first [facility] and then every 2 weeks.until results within normal limits. Collect weekly if baseline is abnormal. Performed By: #### L [id number] #### [facility] (DEFAULT) [address] [address] Segs + Bands,Absolute Auto 4.93 K/uL Normal 1.64-7.28 [facility] Comment on above: Order Comment: Prior to first [facility] and then every 2 weeks.until results within normal limits. Collect weekly if baseline is abnormal. Performed By: #### L [id number] #### [facility] (DEFAULT) [address] [address] WBC (Bld) [#/Vol] 7.75 10*3/uL Normal 3.99-11.19 [facility] Comment on above: Order Comment: Prior to first [facility] and then every 2 weeks.until results within normal limits. Collect weekly if baseline is abnormal. Performed By: #### L [id number] #### [facility] (DEFAULT) [address] [address] BUN CREAon 12-27-2020 Creatinine [Mass/Vol] 1.10 mg/dL Normal 0.50-1.20 [facility] Comment on above: Order Comment: Prior to first [facility] and every 2 weeks if baseline CR is within normal limits. Performed By: #### B CR #### [facility] (DEFAULT) [address] [address] EST GFR, >=60 Normal >=60 [facility] Comment on above: Order Comment: Prior to first [facility] and every 2 weeks if baseline CR is within normal limits. Performed By: #### B CR #### [facility] (DEFAULT) [address] [address] EST GFR,Non 51 mL/min/1.73sqM Low >=60 [facility] Comment on above: Order Comment: Prior to first [facility] and every 2 weeks if baseline CR is within normal limits. Performed By: #### B CR #### [facility] (DEFAULT) [address] [address] Urea nitrogen [Mass/Vol] 26 mg/dL High 7-22 [facility] Comment on above: Order Comment: Prior to first [facility] and every 2 weeks if baseline CR is within normal limits. Performed By: #### B CR #### [facility] (DEFAULT) [address] [address] Urea nitrogen/Creatinine [Mass ratio] 24 mg/mg Normal [facility] Comment on above: Order Comment: Prior to first [facility] and every 2 weeks if baseline CR is within normal limits. Performed By: #### B CR #### [facility] (DEFAULT) [address] [place] [address] CBC AND ELECTRONIC DIFFon Basophils (Bld) [#/Vol] 10*3/uL Normal 0.00-0.15 [facility] Comment on above: Order Comment: Prior to first [facility] and every 2 weeks if baseline CR is within normal limits. Performed By: #### B CR #### [facility] (DEFAULT) [address] [place] [address] Basophils/100 WBC (Bld) 0.3 % Normal [facility] Comment on above: Order Comment: Prior to first [facility] and every 2 weeks if baseline CR is within normal limits. Performed By: #### B CR #### [facility] (DEFAULT) [address] [place] [address] DIFF STATUS Electronic Differential Normal [facility] Comment on above: Order Comment: Prior to first [facility] and every 2 weeks if baseline CR is within normal limits. Performed By: #### B CR #### [facility] (DEFAULT) [address] [place] [address] Eosinophils (Bld) [#/Vol] 0.20 10*3/uL Normal 0.00-0.42 [facility] Comment on above: Order Comment: Prior to first [facility] and every 2 weeks if baseline CR is within normal limits. Performed By: #### B CR #### [facility] (DEFAULT) [address] [place] [address] Eosinophils/100 WBC (Bld) 2.0 % Normal [facility] Comment on above: Order Comment: Prior to first [facility] and every 2 weeks if baseline CR is within normal limits. Performed By: #### B CR #### [facility] (DEFAULT) [address] [place] [address] Hematocrit (Bld) [Volume fraction] 31.0 % Low 34.9-44.3 [facility] Comment on above: Order Comment: Prior to first [facility] and every 2 weeks if baseline CR is within normal limits. Performed By: #### B CR #### [facility] (DEFAULT) [address] [address] Hemoglobin (Bld) [Mass/Vol] 10.0 g/dL Low 11.4-15.2 [facility] Comment on above: Order Comment: Prior to first [facility] and every 2 weeks if baseline CR is within normal limits. Performed By: #### B CR #### [facility] (DEFAULT) [address] [address] Immature Grans % 0.2 % Normal [facility] Comment on above: Order Comment: Prior to first [facility] and every 2 weeks if baseline CR is within normal limits. Performed By: #### B CR #### [facility] (DEFAULT) [address] [address] Immature Grans Absolute <0.04 Normal <=0.09 [facility] Comment on above: Order Comment: Prior to first [facility] and every 2 weeks if baseline CR is within normal limits. Performed By: #### B CR #### [facility] (DEFAULT) [address] [address] Lymphocytes (Bld) [#/Vol] 2.96 10*3/uL Normal 1.16-3.51 [facility] Comment on above: Order Comment: Prior to first [facility] and every 2 weeks if baseline CR is within normal limits. Performed By: #### B CR #### [facility] (DEFAULT) [address] [address] Lymphocytes/100 WBC (Bld) 29.9 % Normal [facility] Comment on above: Order Comment: Prior to first [facility] and every 2 weeks if baseline CR is within normal limits. Performed By: #### B CR #### [facility] (DEFAULT) [address] [address] MCV (RBC) [Entitic vol] 84.9 fL Normal 79.6-97.7 [facility] Comment on above: Order Comment: Prior to first [facility] and every 2 weeks if baseline CR is within normal limits. Performed By: #### B CR #### [facility] (DEFAULT) [address] [address] Mean Cell Hgb 27.4 pg Normal 25.9-33.9 [facility] Comment on above: Order Comment: Prior to first [facility] and every 2 weeks if baseline CR is within normal limits. Performed By: #### B CR #### [facility] (DEFAULT) [address] [address] Mean Cell Hgb Conc 32.3 g/dL Normal 31.4-35.9 [facility] Comment on above: Order Comment: Prior to first [facility] and every 2 weeks if baseline CR is within normal limits. Performed By: #### B CR #### [facility] (DEFAULT) [address] [address] Monocytes (Bld) [#/Vol] 0.50 10*3/uL Normal 0.22-0.87 [facility] Comment on above: Order Comment: Prior to first [facility] and every 2 weeks if baseline CR is within normal limits. Performed By: #### B CR #### [facility] (DEFAULT) [address] [address] Monocytes/100 WBC (Bld) 5.1 % Normal [facility] Comment on above: Order Comment: Prior to first [facility] and every 2 weeks if baseline CR is within normal limits. Performed By: #### B CR #### [facility] (DEFAULT) [address] [address] Nucleated RBC 0.0 /100 WBC Normal <=0.2 [facility] Comment on above: Order Comment: Prior to first [facility] and every 2 weeks if baseline CR is within normal limits. Performed By: #### B CR #### [facility] (DEFAULT) [address] [place] [address] Platelet mean volume (Bld) [Entitic vol] 9.2 fL Normal 8.5-12.2 [facility] Comment on above: Order Comment: Prior to first [facility] and every 2 weeks if baseline CR is within normal limits. Performed By: #### B CR #### [facility] (DEFAULT) [address] [place] [address] Platelets (Bld) [#/Vol] 372 10*3/uL Normal 150-393 [facility] Comment on above: Order Comment: Prior to first [facility] and every 2 weeks if baseline CR is within normal limits. Performed By: #### B CR #### [facility] (DEFAULT) [address] [place] [address] RBC (Bld) [#/Vol] 3.65 10*6/uL Low 3.91-5.04 [facility] Comment on above: Order Comment: Prior to first [facility] and every 2 weeks if baseline CR is within normal limits. Performed By: #### B CR #### [facility] (DEFAULT) [address] [place] [address] RBC Distribution 14.7 % Normal 10.8-14.9 [facility] Comment on above: Order Comment: Prior to first [facility] and every 2 weeks if baseline CR is within normal limits. Performed By: #### B CR #### [facility] (DEFAULT) [address] [place] [address] Segs + Bands Auto 62.5 % Normal [facility] Comment on above: Order Comment: Prior to first [facility] and every 2 weeks if baseline CR is within normal limits. Performed By: #### B CR #### [facility] (DEFAULT) [address] [place] [address] Segs + Bands,Absolute Auto 6.18 K/uL Normal 1.64-7.28 [facility] Comment on above: Order Comment: Prior to first [facility] and every 2 weeks if baseline CR is within normal limits. Performed By: #### B CR #### [facility] (DEFAULT) [address] [address] WBC (Bld) [#/Vol] 9.89 10*3/uL Normal 3.99-11.19 [facility] Comment on above: Order Comment: Prior to first [facility] and every 2 weeks if baseline CR is within normal limits. Performed By: #### B CR #### [facility] (DEFAULT) [address] [address] OCT/HRT [place] OUon 12-28-19 21 OCT/HRT [facility] OU Right Eye Quality was good. Findings include subretinal fluid. Interval change is better. Recommendation for management is to continue treatment. Left Eye Quality was good. Findings include subretinal fluid. Interval change is better. Recommendation for management is to continue treatment. Normal [facility] Apply dressingon 12-19-2020 Applied dressing [facility] Apply dressingOrdered By: [facility] Aguirre on 12-19-2020 [facility] BUN CREAon 12-13-2020 Creatinine [Mass/Vol] 0.99 mg/dL Normal 0.50-1.20 [facility] Comment on above: Order Comment: Prior to first [facility] and every 2 weeks if baseline CR is within normal limits. Performed By: #### B CR #### [facility] (DEFAULT) [address] [address] EST GFR, >=60 Normal >=60 [facility] Comment on above: Order Comment: Prior to first [facility] and every 2 weeks if baseline CR is within normal limits. Performed By: #### B CR #### [facility] (DEFAULT) [address] [address] EST GFR,Non 58 mL/min/1.73sqM Low >=60 [facility] Comment on above: Order Comment: Prior to first [facility] and every 2 weeks if baseline CR is within normal limits. Performed By: #### B CR #### [facility] (DEFAULT) [address] [address] Urea nitrogen [Mass/Vol] 25 mg/dL High - [facility] Comment on above: Order Comment: Prior to first [facility] and every 2 weeks if baseline CR is within normal limits. Performed By: #### B CR #### [facility] (DEFAULT) [address] [address] Urea nitrogen/Creatinine [Mass ratio] 25 mg/mg Normal [facility] Comment on above: Order Comment: Prior to first [facility] and every 2 weeks if baseline CR is within normal limits. Performed By: #### B CR #### [facility] (DEFAULT) [address] [address] CBC AND ELECTRONIC DIFFon Basophils (Bld) [#/Vol] 0.04 10*3/uL Normal 0.00-0.15 [facility] Comment on above: Order Comment: Prior to first [facility] and every 2 weeks if baseline CR is within normal limits. Performed By: #### B CR #### [facility] (DEFAULT) [address] [address] Basophils/100 WBC (Bld) 0.4 % Normal [facility] Comment on above: Order Comment: Prior to first [facility] and every 2 weeks if baseline CR is within normal limits. Performed By: #### B CR #### [facility] (DEFAULT) [address] [address] DIFF STATUS Electronic Differential Normal [facility] Comment on above: Order Comment: Prior to first [facility] and every 2 weeks if baseline CR is within normal limits. Performed By: #### B CR #### [facility] (DEFAULT) [address] [address] Eosinophils (Bld) [#/Vol] 0.13 10*3/uL Normal 0.00-0.42 [facility] Comment on above: Order Comment: Prior to first [facility] and every 2 weeks if baseline CR is within normal limits. Performed By: #### B CR #### [facility] (DEFAULT) [address] [address] Eosinophils/100 WBC (Bld) 1.4 % Normal [facility] Comment on above: Order Comment: Prior to first [facility] and every 2 weeks if baseline CR is within normal limits. Performed By: #### B CR #### [facility] (DEFAULT) [address] [address] Hematocrit (Bld) [Volume fraction] 33.6 % Low 34.9-44.3 [facility] Comment on above: Order Comment: Prior to first [facility] and every 2 weeks if baseline CR is within normal limits. Performed By: #### B CR #### [facility] (DEFAULT) [address] [place] [address] Hemoglobin (Bld) [Mass/Vol] 10.6 g/dL Low 11.4-15.2 [facility] Comment on above: Order Comment: Prior to first [facility] and every 2 weeks if baseline CR is within normal limits. Performed By: #### B CR #### [facility] (DEFAULT) [address] [address] Immature Grans % 0.2 % Normal [facility] Comment on above: Order Comment: Prior to first [facility] and every 2 weeks if baseline CR is within normal limits. Performed By: #### B CR #### [facility] (DEFAULT) [address] [address] Immature Grans Absolute <0.04 Normal <=0.09 [facility] Comment on above: Order Comment: Prior to first [facility] and every 2 weeks if baseline CR is within normal limits. Performed By: #### B CR #### [facility] (DEFAULT) [address] [address] Lymphocytes (Bld) [#/Vol] 2.53 10*3/uL Normal 1.16-3.51 [facility] Comment on above: Order Comment: Prior to first [facility] and every 2 weeks if baseline CR is within normal limits. Performed By: #### B CR #### [facility] (DEFAULT) [address] [address] Lymphocytes/100 WBC (Bld) 27.2 % Normal [facility] Comment on above: Order Comment: Prior to first [facility] and every 2 weeks if baseline CR is within normal limits. Performed By: #### B CR #### [facility] (DEFAULT) [address] [address] MCV (RBC) [Entitic vol] 86.4 fL Normal 79.6-97.7 [facility] Comment on above: Order Comment: Prior to first [facility] and every 2 weeks if baseline CR is within normal limits. Performed By: #### B CR #### [facility] (DEFAULT) [address] [address] Mean Cell Hgb 27.2 pg Normal 25.9-33.9 [facility] Comment on above: Order Comment: Prior to first [facility] and every 2 weeks if baseline CR is within normal limits. Performed By: #### B CR #### [facility] (DEFAULT) [address] [address] Mean Cell Hgb Conc 31.5 g/dL Normal 31.4-35.9 [facility] Comment on above: Order Comment: Prior to first [facility] and every 2 weeks if baseline CR is within normal limits. Performed By: #### B CR #### [facility] (DEFAULT) [address] [address] Monocytes (Bld) [#/Vol] 0.60 10*3/uL Normal 0.22-0.87 [facility] Comment on above: Order Comment: Prior to first [facility] and every 2 weeks if baseline CR is within normal limits. Performed By: #### B CR #### [facility] (DEFAULT) [address] [address] Monocytes/100 WBC (Bld) 6.4 % Normal [facility] Comment on above: Order Comment: Prior to first [facility] and every 2 weeks if baseline CR is within normal limits. Performed By: #### B CR #### [facility] (DEFAULT) [address] [address] Nucleated RBC 0.0 /100 WBC Normal <=0.2 [facility] Comment on above: Order Comment: Prior to first [facility] and every 2 weeks if baseline CR is within normal limits. Performed By: #### B CR #### [facility] (DEFAULT) [address] [address] Platelet mean volume (Bld) [Entitic vol] 9.5 fL Normal 8.5-12.2 [facility] Comment on above: Order Comment: Prior to first [facility] and every 2 weeks if baseline CR is within normal limits. Performed By: #### B CR #### [facility] (DEFAULT) [address] [address] Platelets (Bld) [#/Vol] 365 10*3/uL Normal 150-393 [facility] Comment on above: Order Comment: Prior to first [facility] and every 2 weeks if baseline CR is within normal limits. Performed By: #### B CR #### [facility] (DEFAULT) [address] [address] RBC (Bld) [#/Vol] 3.89 10*6/uL Low 3.91-5.04 [facility] Comment on above: Order Comment: Prior to first [facility] and every 2 weeks if baseline CR is within normal limits. Performed By: #### B CR #### [facility] (DEFAULT) [address] [address] RBC Distribution 14.5 % Normal 10.8-14.9 [facility] Comment on above: Order Comment: Prior to first [facility] and every 2 weeks if baseline CR is within normal limits. Performed By: #### B CR #### [facility] (DEFAULT) [address] [place] [address] Segs + Bands Auto 64.4 % Normal [facility] Comment on above: Order Comment: Prior to first [facility] and every 2 weeks if baseline CR is within normal limits. Performed By: #### B CR #### [facility] (DEFAULT) [address] [place] [address] Segs + Bands,Absolute Auto 5.99 K/uL Normal 1.64-7.28 [facility] Comment on above: Order Comment: Prior to first [facility] and every 2 weeks if baseline CR is within normal limits. Performed By: #### B CR #### [facility] (DEFAULT) [address] [place] [address] WBC (Bld) [#/Vol] 9.31 10*3/uL Normal 3.99-11.19 [facility] Comment on above: Order Comment: Prior to first [facility] and every 2 weeks if baseline CR is within normal limits. Performed By: #### B CR #### [facility] (DEFAULT) [address] [address] ESR Westergren method (Bld) [Velocity]Ordered By: Terence Martinez on 10-17-2020 ESR (Bld) [Velocity] 64 mm/h [facility] Interpretation and review of laboratory results Abnormal [facility] OCT OPTIC NERVE OUon [facility] Radiology Study observation (narrative) [facility] BUN CREAon 10-03-2020 Creatinine [Mass/Vol] 1.13 mg/dL 0.50 - 1.20 mg/dL [facility] GFR/1.73 sq M.predicted MDRD (S/P/Bld) [Vol rate/Area] 50 mL/min/{1.73_m2} Low >=60 mL/min/1.73 sqM [facility] GFR/1.73 sq M.predicted MDRD (S/P/Bld) [Vol rate/Area] mL/min/{1.73_m2} >=60 mL/min/1.73 sqM [facility] Interpretation and review of laboratory results Abnormal [facility] Urea nitrogen [Mass/Vol] 20 mg/dL 7 - 22 mg/dL [facility] Urea nitrogen/Creatinine [Mass ratio] 18 mg/mg [facility] CBC AND ELECTRONIC DIFFon Basophils (Bld) [#/Vol] 10*3/uL 0.00 - 0.15 K/uL [facility] Basophils/100 WBC (Bld) 0.3 % [facility] DIFF STATUS Electronic Differential [facility] Eosinophils (Bld) [#/Vol] 0.16 10*3/uL 0.00 - 0.42 K/uL [facility] Eosinophils/100 WBC (Bld) 2.1 % [facility] Erythrocyte distribution width (RBC) [Ratio] 14.0 % 10.8 - 14.9 % [facility] Hematocrit (Bld) [Volume fraction] 33.7 % Low 34.9 - 44.3 % [facility] Hemoglobin (Bld) [Mass/Vol] 10.3 g/dL Low 11.4 - 15.2 g/dL [facility] Immature granulocytes (Bld) [#/Vol] 10*3/uL <=0.09 K/uL [facility] Immature granulocytes/100 WBC (Bld) 0.3 % [facility] Interpretation and review of laboratory results Abnormal [facility] Lymphocytes (Bld) [#/Vol] 2.21 10*3/uL 1.16 - 3.51 K/uL [facility] Lymphocytes/100 WBC (Bld) 29.3 % [facility] MCH (RBC) [Entitic mass] 27.5 pg 25.9 - 33.9 pg [facility] MCHC (RBC) [Mass/Vol] 30.6 g/dL Low 31.4 - 35.9 g/dL [facility] MCV (RBC) [Entitic vol] 90.1 fL 79.6 - 97.7 fL [facility] Monocytes (Bld) [#/Vol] 0.46 10*3/uL 0.22 - 0.87 K/uL [facility] Monocytes/100 WBC (Bld) 6.1 % [facility] Neutrophils (Bld) [#/Vol] 4.66 10*3/uL 1.64 - 7.28 K/uL [facility] Nucleated RBC/100 WBC (Bld) [Ratio] 0.0 % <=0.2 /100 WBC [facility] Platelet mean volume (Bld) [Entitic vol] 9.5 fL 8.5 - 12.2 fL [facility] Platelets (Bld) [#/Vol] 357 10*3/uL 150 - 393 K/uL [facility] RBC (Bld) [#/Vol] 3.74 10*6/uL Low [facility] Segmented neutrophils/100 WBC (Bld) 61.9 % [facility] WBC (Bld) [#/Vol] 7.53 10*3/uL 3.99 - 11.19 K/uL [facility] XR MYELOMA SURVEYon 09-27-19 IMPRESSION: No discrete lytic lesions or pathologic [...] AP Chest: No obvious displaced rib fracture. [facility] Ira Gonzalez MD - 09/26/2020 EXAM: XR [...] No discrete lytic lesions or pathologic fractures. [facility] Radiology Study observation (narrative) [facility] XR MYELOMA SURVEYOrdered By: Ira Gonzalez on 09-26-2020 [facility] Work Phone: BUN CREAon 09-21-2020 Creatinine [Mass/Vol] 1.19 mg/dL 0.50 - 1.20 mg/dL [facility] GFR/1.73 sq M.predicted MDRD (S/P/Bld) [Vol rate/Area] 47 mL/min/{1.73_m2} Low >=60 mL/min/1.73 sqM [facility] GFR/1.73 sq M.predicted MDRD (S/P/Bld) [Vol rate/Area] 57 mL/min/{1.73_m2} Low >=60 mL/min/1.73 sqM [facility] Interpretation and review of laboratory results Abnormal [facility] Urea nitrogen [Mass/Vol] 26 mg/dL High 7 - 22 mg/dL [facility] Urea nitrogen/Creatinine [Mass ratio] 22 mg/mg [facility] CBC AND ELECTRONIC DIFFon Basophils (Bld) [#/Vol] 0.05 10*3/uL 0.00 - 0.15 K/uL [facility] Basophils/100 WBC (Bld) 0.6 % [facility] DIFF STATUS Electronic Differential [facility] Eosinophils (Bld) [#/Vol] 0.24 10*3/uL 0.00 - 0.42 K/uL [facility] Eosinophils/100 WBC (Bld) 2.8 % [facility] Erythrocyte distribution width (RBC) [Ratio] 13.9 % 10.8 - 14.9 % [facility] Hematocrit (Bld) [Volume fraction] 33.5 % Low 34.9 - 44.3 % [facility] Hemoglobin (Bld) [Mass/Vol] 10.7 g/dL Low 11.4 - 15.2 g/dL [facility] Immature granulocytes (Bld) [#/Vol] 10*3/uL <=0.09 K/uL [facility] Immature granulocytes/100 WBC (Bld) 0.2 % [facility] Interpretation and review of laboratory results Abnormal [facility] Lymphocytes (Bld) [#/Vol] 2.63 10*3/uL 1.16 - 3.51 K/uL [facility] Lymphocytes/100 WBC (Bld) 30.6 % [facility] MCH (RBC) [Entitic mass] 28.1 pg 25.9 - 33.9 pg [facility] MCHC (RBC) [Mass/Vol] 31.9 g/dL 31.4 - 35.9 g/dL [facility] MCV (RBC) [Entitic vol] 87.9 fL 79.6 - 97.7 fL [facility] Monocytes (Bld) [#/Vol] 0.50 10*3/uL 0.22 - 0.87 K/uL [facility] Monocytes/100 WBC (Bld) 5.8 % [facility] Neutrophils (Bld) [#/Vol] 5.15 10*3/uL 1.64 - 7.28 K/uL [facility] Nucleated RBC/100 WBC (Bld) [Ratio] 0.0 % <=0.2 /100 WBC [facility] Platelet mean volume (Bld) [Entitic vol] 9.2 fL 8.5 - 12.2 fL [facility] Platelets (Bld) [#/Vol] 377 10*3/uL 150 - 393 K/uL [facility] RBC (Bld) [#/Vol] 3.81 10*6/uL Low [facility] Segmented neutrophils/100 WBC (Bld) 60.0 % [facility] WBC (Bld) [#/Vol] 8.59 10*3/uL 3.99 - 11.19 K/uL [facility] CBC(NO DIFF)on 09-01-2020 Erythrocyte distribution width (RBC) [Ratio] 15.0 % High 11.5-14.5 [facility] Comment on above: Performed By: #### H EMOG, CMPF, LIP2, RTSH, T42 #### Testing performed at [address] [address] Hematocrit (Bld) [Volume fraction] 39.9 % Normal 36.0-48.0 [facility] Comment on above: Performed By: #### H EMOG, CMPF, LIP2, RTSH, T42 #### [place] [address] Hemoglobin (Bld) [Mass/Vol] 13.3 g/dL Normal 12.0-16.0 [facility] Comment on above: Performed By: #### H EMOG, CMPF, LIP2, RTSH, T42 #### [place] [address] MCH (RBC) [Entitic mass] 28.3 pg Normal 26.0-35.0 [facility] Comment on above: Performed By: #### H EMOG, CMPF, LIP2, RTSH, T42 #### [place] [address] MCHC (RBC) [Mass/Vol] 33.4 g/dL Normal 27.0-37.0 [facility] Comment on above: Performed By: #### H EMOG, CMPF, LIP2, RTSH, T42 #### [place] [address] MCV (RBC) [Entitic vol] 84.7 fL Normal 80.0-100.0 [facility] Comment on above: Performed By: #### H EMOG, CMPF, LIP2, RTSH, T42 #### [place] [address] Platelet mean volume (Bld) [Entitic vol] 6.9 fL Low 7.4-11.0 [facility] Comment on above: Result Comment: Test ing performed at [place] [address] Performed By: #### H EMOG, CMPF, LIP2, RTSH, T42 #### [place] [address] Platelets (Bld) [#/Vol] 275 10*3/uL Normal 130.0-400.0 [facility] Comment on above: Performed By: #### H EMOG, CMPF, LIP2, RTSH, T42 #### [place] [address] RBC (Bld) [#/Vol] 4.72 10*6/uL Normal 4.0-5.4 [facility] Comment on above: Performed By: #### H EMOG, CMPF, LIP2, RTSH, T42 #### Testing performed at [place] [id number] WBC (Bld) [#/Vol] 6.7 10*3/uL Normal 3.6-11.0 [facility] Comment on above: Performed By: #### H EMOG, CMPF, LIP2, RTSH, T42 #### Testing performed at [place] [id number] CMP FASTINGon 09-01-2020 A:G RATIO 1.2 RATIO Low 1.3-2.2 [facility] Comment on above: Performed By: #### H EMOG, CMPF, LIP2, RTSH, T42 #### [place] [address] ALBUMIN 4.1 G/dl Normal 3.5-5.0 [facility] Comment on above: Performed By: #### H EMOG, CMPF, LIP2, RTSH, T42 #### [place] [address] ALP [Catalytic activity/Vol] 103 U/L Normal 38-126 [facility] Comment on above: Performed By: #### H EMOG, CMPF, LIP2, RTSH, T42 #### [place] [address] ALT [Catalytic activity/Vol] 17 U/L Normal <35 [facility] Comment on above: Performed By: #### H EMOG, CMPF, LIP2, RTSH, T42 #### [place] [address] AST [Catalytic activity/Vol] 23 U/L Normal 14-36 [facility] Comment on above: Performed By: #### H EMOG, CMPF, LIP2, RTSH, T42 #### [place] [address] Bilirubin [Mass/Vol] 0.1 mg/dL Low 0.2-1.3 [facility] Comment on above: Performed By: #### H EMOG, CMPF, LIP2, RTSH, T42 #### [place] [address] Calcium [Mass/Vol] 9.2 mg/dL Normal 8.4-10.2 [facility] Comment on above: Performed By: #### H EMOG, CMPF, LIP2, RTSH, T42 #### [place] [address] Chloride [Moles/Vol] 108 mmol/L High 98-107 [facility] Comment on above: Result Comment: Vasyl hickman note: Triglyceride levels of 600mg/dL or higher may positively bias chloride results by approximately 2.1 mmol Performed By: #### H EMOG, CMPF, LIP2, RTSH, T42 #### [place] [address] CO2 [Moles/Vol] 23 mmol/L Normal 22-30 [facility] Comment on above: Performed By: #### H EMOG, CMPF, LIP2, RTSH, T42 #### [place] [address] Creatinine [Mass/Vol] 1.00 mg/dL Normal 0.7-1.2 [facility] Comment on above: Performed By: #### H EMOG, CMPF, LIP2, RTSH, T42 #### [place] [address] EST. GFR, >60 Normal [facility] Comment on above: Performed By: #### H EMOG, CMPF, LIP2, RTSH, T42 #### Testing [place] [address] EST. GFR,Non >60 Normal [facility] Comment on above: Performed By: #### H EMOG, CMPF, LIP2, RTSH, T42 #### [place] [address] GFR Information Average GFR for 50-5 9 years old = 93. Normal [facility] Comment on above: Result Comment: [employer] [place] Kidney disease, GFR = <60. Kidney failure, GFR = <15. The GFR estimate is not adjusted for extreme body surface area or acute process, nor has it been validated for women or ethnic groups other than and . Testing performed at [place] [address] Performed By: #### H EMOG, CMPF, LIP2, RTSH, T42 #### [place] [address] Glucose [Mass/Vol] 193 mg/dL High 70-100 [facility] Comment on above: Result Comment: NORMAL <100 mg/dL PREDIABETES 101-126 mg/dL DIABETES 126 mg/dL or higher Performed By: #### H EMOG, CMPF, LIP2, RTSH, T42 #### [place] [address] Potassium [Moles/Vol] 5.4 mmol/L High 3.5-5.1 [facility] Comment on above: Performed By: #### H EMOG, CMPF, LIP2, RTSH, T42 #### [place] [address] Protein [Mass/Vol] 7.4 g/dL Normal 6.3-8.2 [facility] Comment on above: Performed By: #### H EMOG, CMPF, LIP2, RTSH, T42 #### [place] [address] Sodium [Moles/Vol] 140 mmol/L Normal 137-145 [facility] Comment on above: Performed By: #### H EMOG, CMPF, LIP2, RTSH, T42 #### [place] [address] Urea nitrogen [Mass/Vol] 19 mg/dL Normal 7-20 [facility] Comment on above: Performed By: #### H EMOG, CMPF, LIP2, RTSH, T42 #### [place] [address] FREE T4on 09-01-2020 Free T4 [Mass/Vol] 1.01 ng/dL Normal 0.78-2.19 [facility] Comment on above: Result Comment: Test ing performed at [place] [address] Performed By: #### H EMOG, CMPF, LIP2, RTSH, T42 #### [place] [address] HEMOGLOBIN A1Con 09-01-2020 Glucose [Mass/Vol] 232 mg/dL Normal [facility] Comment on above: Result Comment: Test ing performed at [place] [address] Performed By: #### H A1CT #### [place] [address] HbA1c (Bld) [Mass fraction] 9.7 % High 0-6 [facility] Comment on above: Result Comment: NORMAL <5.7% PREDIABETES 5.7-6.4% DIABETES 6.5% OR HIGHER Performed By: #### H A1CT #### [place] [address] LIPID PROFILEon 09-01-2020 Cholesterol [Mass/Vol] 232 mg/dL High 107-217 [facility] Comment on above: Performed By: #### H EMOG, CMPF, LIP2, RTSH, T42 #### [place] [address] Cholesterol in HDL [Mass/Vol] 51 mg/dL Normal 33-75 [facility] Comment on above: Performed By: #### H EMOG, CMPF, LIP2, RTSH, T42 #### Testing performed at [address] [address] Cholesterol in LDL [Mass/Vol] 154 mg/dL Normal [facility] Comment on above: Performed By: #### H EMOG, CMPF, LIP2, RTSH, T42 #### [place] [address] Cholesterol in VLDL [Mass/Vol] 27 mg/dL High 5.0-25 [facility] Comment on above: Performed By: #### H EMOG, CMPF, LIP2, RTSH, T42 #### [place] [address] Cholesterol.total/Erika sterol in HDL [Mass ratio] 4.55 {ratio} Normal [facility] Comment on above: Result Comment: RISK TOTAL/HDL RATIO MEN WOMEN 1/2 AVERAGE 3.43 3.27 AVERAGE 4.97 4.44 2X AVERAGE 9.55 7.05 3X AVERAGE 23.99 11.04 Testing performed at [place] [address] Performed By: #### H EMOG, CMPF, LIP2, RTSH, T42 #### [place] [address] Triglyceride [Mass/Vol] 133 mg/dL Normal 0-150 [facility] Comment on above: Performed By: #### H EMOG, CMPF, LIP2, RTSH, T42 #### [place] [address] MALB/CREAT RATIO,URINEon MALB/CREAT RATIO,URINE 30.9 mg MALB/g CREAT High 1.3 -30.0 [facility] Comment on above: Result Comment: Test ing performed at [place] [address] Performed By: #### M CRAT #### [place] [address] MICROALBUMIN,RANDOM URINE 23.6 mg/L High 0-16.7 [facility] Comment on above: Performed By: #### M CRAT #### Testing performed at [place] [id number] URINE CREATININE RANDOM 76.3 MG/DL Normal [facility] Comment on above: Result Comment: NO N ORMAL VALUES ESTABLISHED FOR RANDOM SPECIMENS Performed By: #### M CRAT #### [place] [address] TSH,REFLEX FREE T4on 021 TSH,REFLEX FREE T4 6.890 uIU/ML High 0.46-4.68 [facility] Comment on above: Result Comment: Test ing performed at [place] [address] Performed By: #### H EMOG, CMPF, LIP2, RTSH, T42 #### [place] [address] CMP FASTINGon 05-15-2020 A:G RATIO 1.2 RATIO Low 1.3-2.2 [facility] Comment on above: Performed By: #### H EMOG, CMPF, LIP2, RTSH, T42 #### [place] [address] ALBUMIN 4.1 G/dl Normal 3.5-5.0 [facility] Comment on above: Performed By: #### H EMOG, CMPF, LIP2, RTSH, T42 #### [place] [address] ALP [Catalytic activity/Vol] 103 U/L Normal 38-126 [facility] Comment on above: Performed By: #### H EMOG, CMPF, LIP2, RTSH, T42 #### [place] [address] ALT [Catalytic activity/Vol] 15 U/L Normal <35 [facility] Comment on above: Performed By: #### H EMOG, CMPF, LIP2, RTSH, T42 #### [place] [address] AST [Catalytic activity/Vol] 42 U/L High 14-36 [facility] Comment on above: Performed By: #### H EMOG, CMPF, LIP2, RTSH, T42 #### Testing performed at [place] [id number] Bilirubin [Mass/Vol] 0.2 mg/dL Normal 0.2-1.3 [facility] Comment on above: Performed By: #### H EMOG, CMPF, LIP2, RTSH, T42 #### Testing performed at [place] [id number] Calcium [Mass/Vol] 9.3 mg/dL Normal 8.4-10.2 [facility] Comment on above: Performed By: #### H EMOG, CMPF, LIP2, RTSH, T42 #### Testing performed at [place] [id number] Chloride [Moles/Vol] 111 mmol/L High 98-107 [facility] Comment on above: Result Comment: Plelinda hickman note: Triglyceride levels of 600mg/dL or higher may positively bias chloride results by approximately 2.1 mmol Performed By: #### H EMOG, CMPF, LIP2, RTSH, T42 #### [place] [address] CO2 [Moles/Vol] 17 mmol/L Critically low 22-30 [facility] Comment on above: Result Comment: CALL ED TO AND READ BACK BY DAVE CHATTERJEE AT 1115 ON 05.15.2020 Performed By: #### H EMOG, CMPF, LIP2, RTSH, T42 #### Testing performed at [place] [id number] Creatinine [Mass/Vol] 1.10 mg/dL Normal 0.7-1.2 [facility] Comment on above: Performed By: #### H EMOG, CMPF, LIP2, RTSH, T42 #### Testing performed at [place] [id number] EST. GFR, >60 Normal [facility] Comment on above: Performed By: #### H EMOG, CMPF, LIP2, RTSH, T42 #### [place] [address] EST. GFR,Non 54 ml/min/1.73sq.m Normal [facility] Comment on above: Performed By: #### H EMOG, CMPF, LIP2, RTSH, T42 #### [place] [address] GFR Information Average GFR for 50-5 9 years old = 93. Normal [facility] Comment on above: Result Comment: Frozen Yogurt Maker garfield Kidney disease, GFR = <60. Kidney failure, GFR = <15. The GFR estimate is not adjusted for extreme body surface area or acute process, nor has it been validated for women or ethnic groups other than and . Testing performed at [place] [address] Performed By: #### H EMOG, CMPF, LIP2, RTSH, T42 #### [place] [address] Glucose [Mass/Vol] 190 mg/dL High 70-100 [facility] Comment on above: Result Comment: NORMAL <100 mg/dL PREDIABETES 101-126 mg/dL DIABETES 126 mg/dL or higher Performed By: #### H EMOG, CMPF, LIP2, RTSH, T42 #### [place] [address] Potassium [Moles/Vol] 3.7 mmol/L Normal 3.5-5.1 [facility] Comment on above: Performed By: #### H EMOG, CMPF, LIP2, RTSH, T42 #### [place] [address] Protein [Mass/Vol] 7.6 g/dL Normal 6.3-8.2 [facility] Comment on above: Performed By: #### H EMOG, CMPF, LIP2, RTSH, T42 #### Testing performed at [place] [id number] Sodium [Moles/Vol] 138 mmol/L Normal 137-145 [facility] Comment on above: Performed By: #### H EMOG, CMPF, LIP2, RTSH, T42 #### Testing performed at [place] [id number] Urea nitrogen [Mass/Vol] 24 mg/dL High 7-20 [facility] Comment on above: Performed By: #### H EMOG, CMPF, LIP2, RTSH, T42 #### [place] [address] HEMOGLOBIN A1Con 05-15-2020 Glucose [Mass/Vol] 240 mg/dL Normal [facility] Comment on above: Result Comment: Test ing performed at [place] [address] Performed By: #### H EMOG, CMPF, LIP2, RTSH, T42 #### [place] [address] HbA1c (Bld) [Mass fraction] 10.0 % High 0-6 [facility] Comment on above: Result Comment: NORMAL <5.7% PREDIABETES 5.7-6.4% DIABETES 6.5% OR HIGHER Performed By: #### H EMOG, CMPF, LIP2, RTSH, T42 #### [place] [address] LIPID PROFILEon 05-15-2020 Cholesterol [Mass/Vol] 228 mg/dL High 107-217 [facility] Comment on above: Performed By: #### H EMOG, CMPF, LIP2, RTSH, T42 #### [place] [address] Cholesterol in HDL [Mass/Vol] 36 mg/dL Normal 33-75 [facility] Comment on above: Performed By: #### H EMOG, CMPF, LIP2, RTSH, T42 #### [place] [address] Cholesterol in LDL [Mass/Vol] 161 mg/dL Normal [facility] Comment on above: Performed By: #### H EMOG, CMPF, LIP2, RTSH, T42 #### Testing performed at [address] [address] Cholesterol in VLDL [Mass/Vol] 31 mg/dL High 5.0-25 [facility] Comment on above: Performed By: #### H EMOG, CMPF, LIP2, RTSH, T42 #### [place] [address] Cholesterol.total/Erika sterol in HDL [Mass ratio] 6.33 {ratio} Normal [facility] Comment on above: Result Comment: RISK TOTAL/HDL RATIO MEN WOMEN 1/2 AVERAGE 3.43 3.27 AVERAGE 4.97 4.44 2X AVERAGE 9.55 7.05 3X AVERAGE 23.99 11.04 Testing performed at [place] [address] Performed By: #### H EMOG, CMPF, LIP2, RTSH, T42 #### [place] [address] Triglyceride [Mass/Vol] 157 mg/dL High 0-150 [facility] Comment on above: Performed By: #### H EMOG, CMPF, LIP2, RTSH, T42 #### [place] [address] MALB/CREAT RATIO,URINEon MALB/CREAT RATIO,URINE 18.8 mg MALB/g CREAT Normal 1.3 -30.0 [facility] Comment on above: Result Comment: Test ing performed at [place] [address] Performed By: #### M CRAT #### [place] [address] MICROALBUMIN,RANDOM URINE 9.3 mg/L Normal 0-16.7 [facility] Comment on above: Performed By: #### M CRAT #### [place] [address] URINE CREATININE RANDOM 49.4 MG/DL Normal [facility] Comment on above: Result Comment: NO N ORMAL VALUES ESTABLISHED FOR RANDOM SPECIMENS Performed By: #### M CRAT #### [place] [address] XR RIBS LT PA Boby 0 XR [...] by: LUIS ANDRES Date: 2020-01-27 13:26 Normal [facility] XR FINGER MIN 2 VIEWSon XR FINGER MIN 2 VIEWS PROCEDURE: XR [...] by: LUIS ANDRES Date: 2019-12-22 10:13 Normal [facility] BLOOD UREA NITROGENon 2019 Urea nitrogen [Mass/Vol] 16 mg/dL Normal - [facility] CREATININE,SERUMon 0 Creatinine [Mass/Vol] Average GFR for 50 -59 years old = 93. Normal [facility] Comment on above: Result Comment: Frozen Yogurt Maker [place] Kidney disease, GFR = <60. Kidney failure, GFR = <15. The GFR estimate is not adjusted for extreme body surface area or acute process, nor has it been validated for women or ethnic groups other than and . Creatinine [Mass/Vol] mg/dL Normal [facility] Creatinine [Mass/Vol] 52 ml/min/1.73sq.m Normal [facility] Creatinine [Mass/Vol] 1.14 mg/dL Normal 0.7-1.2 [facility] FAX REQUESTon 03-08-2019 FAX TO Normal [facility] BLOOD UREA NITROGENon 2019 Urea nitrogen [Mass/Vol] 23 mg/dL High - [facility] CREATININE,SERUMon 0 Creatinine [Mass/Vol] 38 ml/min/1.73sq.m Normal [facility] Creatinine [Mass/Vol] 47 ml/min/1.73sq.m Normal [facility] Creatinine [Mass/Vol] Average GFR for 50 -59 years old = 93. Normal [facility] Comment on above: Result Comment: Frozen Yogurt Maker [place] Kidney disease, GFR = <60. Kidney failure, GFR = <15. The GFR estimate is not adjusted for extreme body surface area or acute process, nor has it been validated for women or ethnic groups other than and . Creatinine [Mass/Vol] 1.49 mg/dL High 0.7-1.2 [facility] FAX REQUESTon 03-01-2019 FAX TO Normal [facility] US DUPLEX EXTREMITY DVT LEFT on 01-29-2019 [...] 2.1 cm and may be reactive. Normal [facility] Culture,Bacterialon 01-06-20 18 Culture,Bacterial Test Name: [...] 10 F Vancomycin S 1 F Normal [facility] Comment on above: Performed By: #### C ULT ####Unless otherwise noted, all testing performed by [facility].[place], [place] [phone]: [id number] Director: Adilson Niño M.D. Progress Noteon 12-16-2017 Protein mass conc [facility] [address] [address] NAME MEG GEORGES [facility] [id number] 1965 DATE PROGRESS NOTE Meg is seen [...] to use it. MARK MARQUEZ 12/16/2017 11:25 [id number] T 12/16/2017 15:16 BJZ/MODL Electronically Signed By Pili Gilliam DPM on 17 Dec 2017 19:19:18 GMT Normal [facility] Culture,Bacterialon 12-03-19 18 Culture,Bacterial Test Name: Culture,Bacterial Site: LEFT FOOT Culture Status: Final Culture Report: Normal Rob Gram Stain: No WBC's No Squamous Epithelial Cells No Organisms Seen Micro Source: Wound drainage Normal [facility] Comment on above: Performed By: #### C ULT ####Unless otherwise noted, all testing performed by [facility], [place] [phone]: [id number] Director: Adilson Niño M.D. MRI LOWER EXT JOINT W/O CONT on 11-25-2017 MRI LOWER EXT JOINT W/O CONT Final Report Accession No: [id number] Performed: Nov 25 2017 8:32AM Examination: [...] fascia is mildly thickened without evidence of roaxnna tear. Laterally, the peroneal tendons demonstrate normal [...] NICHOLS M.D. Trans: n/a : cc: Normal [facility] Culture,Bacterialon 11-04-19 18 Culture,Bacterial Test Name: Culture,Bacterial [...] 1 F Trimeth/Sulfa S <= 20 F Normal [facility] Comment on above: Performed By: #### C ULT ####Unless otherwise noted, all testing performed by [facility].[place], [place] [phone]: [id number] Director: Adilson Niño M.D. Progress Noteon 08-29-2017 Protein mass conc [facility] [address] [address] NAME MEG GEORGES [facility] [id number] 1965 DATE 08/29/2017 PROGRESS NOTE Ms. Georges [...] [facility]. MARK MILLER 08/29/2017 18:22 [id number] T 08/30/2017 08:46 KM/BETSY Electronically Signed By Mark Anthony cMdonald Dpm on 05 Sep 2017 23:32:42 GMT Normal [facility] Culture,Bacterialon 08-15-19 18 Culture,Bacterial Test Name: Culture,Bacterial Site: Left 1st MPJ ulcer/ celluli Culture Status: Final Culture Report: No Growth - Day 2 Gram Stain: Rare WBC's Few RBC's No Organisms Seen Micro Source: Wound Normal [facility] Comment on above: Performed By: #### C ULT #### Unless otherwise noted, all testing performed by [address] [place] [address] CLIA: [id number] Line Maintainer Section: Adilson Niño M.D. Progress Noteon 06-13-2017 Protein mass conc [facility] [address] [place] [address] NAME MEG GEORGES [id number] 1965 DATE 06/13/2017 PROGRESS NOTE SUBJECTIVE Ms. [...] require many more visits. She related understanding. MARK MILLER 06/13/2017 10:44 [id number] T 06/13/2017 11:35 [facility]/MODL Electronically Signed By Mark Anthony Mcdonald Dpm on 19 Jun 2017 14:55:04 T Normal [facility] Consultationon 06-07-2017 Consultation [facility] [address] 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 MARTHA YAN DPM D 04/11/2017 16:16 [id number] 04/11/2017 20:46 RCI/MODL cc: Neri Santa DO Electronically Signed By Martha Yan DPM on 16 Apr 2017 22:59:57 GMT Normal [facility] Protein mass conc [facility] [address] [place] [address] NAME MEG GEORGES [facility] [id number] 1965 DATE 06/06/2017 PROGRESS NOTE PROGRESS NOTE [...] week or sooner if any complications arise. MARTHA YAN DPM D 06/06/2017 22:10 [id number] 06/07/2017 08:57 RCI/MODL Electronically Signed By Martha Yan DPM on 10 Jun 2017 00:05:11 GMT Normal [facility] CBC with Diffon 06-04-2017 Basophils #/vol (Bld) 0.0 K/mcL Normal 0-0.2 [facility] Comment on above: Performed By: #### C BCDIF, CMET, EDCTNI #### Unless otherwise noted, all testing performed by [address] CLIA: [id number] Line Maintainer Section: Adilson Niño M.D. Basophils/100 WBC (Bld) 0.5 % Normal [facility] Comment on above: Performed By: #### C BCDIF, CMET, EDCTNI #### Unless otherwise noted, [place] [address] CLIA: [id number] Line Maintainer Section: Adilson Niño M.D. Eosinophils #/vol (Bld) 0.2 K/mcL Normal 0-0.5 [facility] Comment on above: Performed By: #### C BCDIF, CMET, EDCTNI #### Unless otherwise noted, [place] [address] CLIA: [id number] Line Maintainer Section: Adilson Niño M.D. Eosinophils/100 WBC (Bld) 2.5 % Normal [facility] Comment on above: Performed By: #### C BCDIF, CMET, EDCTNI #### Unless otherwise noted, [place] [address] CLIA: [id number] Line Maintainer Section: Adilson Niño M.D. Erythrocyte distribution width Ratio (RBC) 13.3 % Normal 10-14.4 [facility] Comment on above: Performed By: #### C BCDIF, CMET, EDCTNI #### Unless otherwise noted, [place] [address] CLIA: [id number] Line Maintainer Section: Adilson Niño M.D. Hematocrit Volume Fraction (Bld) 39.7 % Normal 34.4-44.8 [facility] Comment on above: Performed By: #### C BCDIF, CMET, EDCTNI #### Unless otherwise noted, all testing performed by [address] CLIA: [id number] Line Maintainer Section: Adilson Niño M.D. Hemoglobin mass conc (Bld) 13.3 g/dL Normal 11.6-15.4 [facility] Comment on above: Performed By: #### C BCDIF, CMET, EDCTNI #### Unless otherwise noted, [place] [address] CLIA: [id number] Line Maintainer Section: Adilson Niño M.D. Lymphocytes #/vol (Bld) 4.0 K/mcL High 1.0-3.[address] [facility] Comment on above: Performed By: #### C BCDIF, CMET, EDCTNI #### Unless otherwise noted, [place] [address] CLIA: [id number] Line Maintainer Section: Adilson Niño M.D. Lymphocytes/100 WBC (Bld) 42.6 % Normal [facility] Comment on above: Performed By: #### C BCDIF, CMET, EDCTNI #### Unless otherwise noted, [place] [address] CLIA: [id number] Line Maintainer Section: Adilson Niño M.D. MCH Entitic mass (RBC) 30.1 pg Normal 27.9-33.9 [facility] Comment on above: Performed By: #### C BCDIF, CMET, EDCTNI #### Unless otherwise noted, [place] [address] CLIA: [id number] Line Maintainer Section: Adilson Niño M.D. MCHC mass conc (RBC) 33.6 g/dL Normal 33.1-35.1 [facility] Comment on above: Performed By: #### C BCDIF, CMET, EDCTNI #### Unless otherwise noted, all testing performed by [place] [phone] CLIA: [id number] Line Maintainer Section: Adilson Niño M.D. MCV Entitic volume (RBC) 89.7 fL Normal 82.6-98.9 [facility] Comment on above: Performed By: #### C BCDIF, CMET, EDCTNI #### Unless otherwise noted, [place] [address] CLIA: [id number] Line Maintainer Section: Adilson Niño M.D. Monocytes #/vol (Bld) 0.6 K/mcL Normal 0.1-0.6 [facility] Comment on above: Performed By: #### C BCDIF, CMET, EDCTNI #### Unless otherwise noted, [place] [address] CLIA: [id number] Line Maintainer Section: Adilson Niño M.D. Monocytes/100 WBC (Bld) 5.9 % Normal O [facility] Comment on above: Performed By: #### C BCDIF, CMET, EDCTNI #### Unless otherwise noted, [place] [address] CLIA: [id number] Line Maintainer Section: Adilson Niño M.D. Neutrophils #/vol (Bld) 4.6 K/mcL Normal 1.2-6.9 [facility] Comment on above: Performed By: #### C BCDIF, CMET, EDCTNI #### Unless otherwise noted, [place] [address] CLIA: [id number] Line Maintainer Section: Adilson Niño M.D. Platelet mean volume Entitic volume (Bld) 6.9 fL Low 7.0-10.6 [facility] Comment on above: Performed By: #### C BCDIF, CMET, EDCTNI #### Unless otherwise noted, [place] [address] CLIA: [id number] Line Maintainer Section: Adilson Niño M.D. Platelets #/vol (Bld) 377 K/mcL Normal 162-402 [facility] Comment on above: Performed By: #### C BCDIF, CMET, EDCTNI #### Unless otherwise noted, all testing performed by [place] [id number] CLIA: [id number] Line Maintainer Section: Adilson Niño M.D. RBC #/vol (Bld) 4.42 M/mcL Normal 3.7-5.0 [facility] Comment on above: Performed By: #### C BCDIF, CMET, EDCTNI #### Unless otherwise noted, [place] [address] CLIA: [id number] Line Maintainer Section: Adilson Niño M.D. Segmented Neut % 48.5 % Normal [facility] Comment on above: Performed By: #### C BCDIF, CMET, EDCTNI #### Unless otherwise noted, [place] [address] CLIA: [id number] Line Maintainer Section: Adilson Niño M.D. WBC #/vol (Bld) 9.5 K/mcL Normal 3.4-10.6 [facility] Comment on above: Performed By: #### C BCDIF, CMET, EDCTNI #### Unless otherwise noted, [place] [address] CLIA: [id number] Line Maintainer Section: Adilson Niño M.D. Comprehensive Metabolic Pane [facility] 06-04-2017 Albumin mass conc 3.8 g/dL Normal 3.2-5.2 [facility] Comment on above: Performed By: #### C BCDIF, CMET, EDCTNI #### Unless otherwise noted, [place] [address] CLIA: [id number] Line Maintainer Section: Adilson Niño M.D. ALP enzyme act/vol 128 U/L Normal 40-150 [facility] [place] [facility] Comment on above: Performed By: #### C BCDIF, CMET, EDCTNI #### Unless otherwise noted, [place] [address] CLIA: [id number] Line Maintainer Section: Adilson Niño M.D. ALT enzyme act/vol 43 U/L Normal 14-65 [facility] [place] [facility] Comment on above: Result Comment: This test result might be falsely depressed or falsely elevated on samples drawn from patients taking Sulfasalazine and Sulfapyridine. Venipuncture should occur prior to taking either of these drugs. Performed By: #### C BCDIF, CMET, EDCTNI #### Unless otherwise noted, [place] [address] CLIA: [id number] Line Maintainer Section: Adilson Niño M.D. AST enzyme act/vol 20 U/L Normal 0-45 [facility] [place] [facility] Comment on above: Result Comment: This test result might be falsely depressed or falsely elevated on samples drawn from patients taking Sulfasalazine and Sulfapyridine. Venipuncture should occur prior to taking either of these drugs. Performed By: #### C BCDIF, CMET, EDCTNI #### Unless otherwise noted, all testing performed by [place] [id number] CLIA: [id number] Line Maintainer Section: Adilson Niño M.D. Bilirubin mass conc 0.3 mg/dL Normal 0.3-1.2 [facility] Comment on above: Performed By: #### C BCDIF, CMET, EDCTNI #### Unless otherwise noted, [place] [address] CLIA: [id number] Line Maintainer Section: Adilson Niño M.D. Calcium mass conc 9.4 mg/dL Normal 8.4-10.2 [facility] Comment on above: Performed By: #### C BCDIF, CMET, EDCTNI #### Unless otherwise noted, [place] [address] CLIA: [id number] Line Maintainer Section: Adilson Niño M.D. Chloride molar conc 100 mmol/L Normal 98-108 [facility] Comment on above: Performed By: #### C BCDIF, CMET, EDCTNI #### Unless otherwise noted, [place] [address] CLIA: [id number] Line Maintainer Section: Adilson Niño M.D. CO2 molar conc 26 mmol/L Normal 21-32 [facility] Comment on above: Performed By: #### C BCDIF, CMET, EDCTNI #### Unless otherwise noted, [place] [address] CLIA: [id number] Line Maintainer Section: Adilson Niño M.D. Creatinine mass conc 1.10 mg/dL Normal 0.40-1.10 [facility] Comment on above: Performed By: #### C BCDIF, CMET, EDCTNI #### Unless otherwise noted, [place] [address] CLIA: [id number] Line Maintainer Section: Adilson Niño M.D. GFR/1.73 sq M predicted among blacks MDRD vol rate/area (S/P/Bld) mL/min/{1.73_m2} Normal [facility] Comment on above: Result Comment: Afri can [place] GFR Calc Performed By: #### C BCDIF, CMET, EDCTNI #### Unless otherwise noted, [place] [address] CLIA: [id number] Line Maintainer Section: Adilson Niño M.D. GFR/1.73 sq M predicted among non-blacks MDRD vol rate/area (S/P/Bld) 52 mL/min/{1.73_m2} Low >60 [facility] Comment on above: Result Comment: Non- GFR [...] Unless otherwise noted, [place] [address] CLIA: [id number] Line Maintainer Section: Adilson Niño M.D. Glucose mass conc 244 mg/dL High 70-99 [facility] Comment on above: Result Comment: This test result might be falsely depressed or falsely elevated on samples drawn from patients taking Sulfasalazine and Sulfapyridine. Venipuncture should occur prior to taking either of these drugs. Performed By: #### C BCDIF, CMET, EDCTNI #### Unless otherwise noted, [place] [address] CLIA: [id number] Line Maintainer Section: Adilson Niño M.D. Potassium molar conc 4.2 mmol/L Normal 3.5-5.1 [facility] Comment on above: Performed By: #### C BCDIF, CMET, EDCTNI #### Unless otherwise noted, [place] [address] CLIA: [id number] Line Maintainer Section: Adilson Niño M.D. Protein mass conc 7.8 g/dL Normal 6.0-8.0 [facility] Comment on above: Performed By: #### C BCDIF, CMET, EDCTNI #### Unless otherwise noted, [place] [address] CLIA: [id number] Line Maintainer Section: Adilson Niño M.D. Sodium molar conc 135 mmol/L Normal 135-145 [facility] Comment on above: Performed By: #### C BCDIF, CMET, EDCTNI #### Unless otherwise noted, [place] [address] CLIA: [id number] Line Maintainer Section: Adilson Niño M.D. Urea nitrogen mass conc 15 mg/dL Normal 8-[address] [facility] Comment on above: Performed By: #### C BCDIF, CMET, EDCTNI #### Unless otherwise noted, [place] [address] CLIA: [id number] Line Maintainer Section: Adilson Niño M.D. ED Cardiac Troponin-Ion 05-18 Troponin I.cardiac mass conc ng/mL Normal < 45 [facility] Comment on above: Result Comment: Elev ation [...] Unless otherwise noted, [place] [address] CLIA: [id number] Line Maintainer Section: Adilson Niño M.D. RIBS UNILATERALon 06-04-2017 RIBS UNILATERAL Final Report Accession No: [id number] Performed: Jun 04 2017 9:56PM Examination: [...] TANNER M.D. Trans: istumb : cc: Normal [facility] Culture,Bacterialon 04-23-19 18 Culture,Bacterial Test Name: Culture,Bacterial [...] F Vancomycin S <= 0.5 F Normal [facility] Comment on above: Performed By: #### C ULT #### Unless otherwise noted, all testing performed by [facility] [address] [place] [address] CLIA: [id number] Line Maintainer Section: Adilson Niño M.D. Progress Noteon 04-22-2017 Protein mass conc [facility] [address] [place] [address] NAME MEG GEORGES [facility] [id number] 1965 DATE PROGRESS NOTE Meg seen today [...] in a week. MARK MARQUEZ 04/22/2017 12:51 [id number] 04/22/2017 16:19 BJZ/MODL Electronically Signed By Pili Gilliam DPM on 23 Apr 2017 17:35:14 GMT Normal [facility] Culture,Bacterialon 04-19-19 18 Culture,Bacterial Test Name: Culture,Bacterial [...] 10 F Vancomycin S 1 F Normal [facility] Comment on above: Performed By: #### C ULT #### Unless otherwise noted, all testing performed by [address] [address] CLIA: [id number] Line Maintainer Section: Adilson Niño M.D. Vital Signs Date Time Vital Sign Value Performing Clinician Alejandro douglas 08-10-2021 20:30-0400 Diastolic blood pressure 88 mm[Hg] Nickopher Hauger DO Work Phone: [facility] 08-10-2021 20:30-0400 Heart rate 88 /min Christwhitneyer Hauger DO Work Phone: [facility] 08-10-2021 20:30-0400 Respiratory rate 18 /min Christopher Hauger DO Work Phone: [facility] 08-10-2021 20:30-0400 SaO2% (BldA) [Mass fraction] 100 % Christopher Hauger DO Work Phone: [facility] 08-10-2021 20:30-0400 Systolic blood pressure 144 mm[Hg] Christopher Hauger DO Work Phone: [facility] 08-10-2021 18:00-0400 Body temperature 100 [degF] Christopher Hauger DO Work Phone: [facility] [employer] 08-10-2021 13:33-0400 Body height 165.1 cm Anthony Pedrozar DO Work Phone: [facility] [employer] 08-08-2021 06:00-0400 Body mass index (BMI) [Ratio] 21.72 kg/m2 Anthony Pedrozar DO Work Phone: [facility] [employer] 08-08-2021 06:00-0400 Body weight 59.2 kg Anthony Lucero DO Work Phone: [facility] [employer] 07-14-2021 14:00-0400 Diastolic blood pressure 79 mm[Hg] Anthony Villarreal MD Work Phone: [facility] [employer] 07-14-2021 14:00-0400 Heart rate 100 /min Anthony Villarreal MD Work Phone: [facility] [employer] 07-14-2021 14:00-0400 SaO2% (BldA) [Mass fraction] 94 % Anthony Villarreal MD Work Phone: [facility] [employer] 07-14-2021 14:00-0400 Systolic blood pressure 143 mm[Hg] Anthony Villarreal MD Work Phone: [facility] [employer] 07-14-2021 11:15-0400 Respiratory rate 16 /min Anthony Villarreal MD Work Phone: [facility] [employer] 07-13-2021 20:37-0400 Body height 165.1 cm Anthony Villarreal MD Work Phone: [facility] [employer] 07-13-2021 20:37-0400 Body mass index (BMI) [Ratio] 23.3 kg/m2 Anthony Villarreal MD Work Phone: [facility] [employer] 07-13-2021 20:37-0400 Body weight 63.5 kg Anthony Villarreal MD Work Phone: [facility] [employer] 07-13-2021 20:20-0400 Body temperature 97.5 [degF] Anthony Villarreal MD Work Phone: [facility] [employer] 07-10-2021 10:55-0400 Body temperature 97.81 [degF] Wil Martinez MD Work Phone: [facility] 07-10-2021 10:55-0400 Diastolic blood pressure 54 mm[Hg] Wil Martinez MD Work Phone: [facility] 07-10-2021 10:55-0400 Heart rate 88 /min Wil Martinez MD Work Phone: [facility] 07-10-2021 10:55-0400 Respiratory rate 14 /min Wil Martinez MD Work Phone: [facility] 07-10-2021 10:55-0400 SaO2% (BldA) [Mass fraction] 98 % Wil Martinez MD Work Phone: [facility] [employer] 07-10-2021 10:55-0400 Systolic blood pressure 102 mm[Hg] Wil Martinez MD Work Phone: [facility] [employer] 07-10-2021 06:00-0400 Body mass index (BMI) [Ratio] 26.91 kg/m2 Wil Martinez MD Work Phone: [facility] 07-10-2021 06:00-0400 Body weight 73.35 kg Wil Martinez MD Work Phone: [facility] 07-05-2021 15:43-0400 Body height 165.1 cm Wil Martinez MD Work Phone: [facility] 06-28-2021 09:45-0400 Diastolic blood pressure 85 mm[Hg] Chris Boothe MD Work Phone: [employer] 06-28-2021 09:45-0400 Heart rate 106 /min Chris Boothe MD Work Phone: [facility] 06-28-2021 09:45-0400 Respiratory rate 25 /min Chris Boothe MD Work Phone: [facility] 06-28-2021 09:45-0400 SaO2% (BldA) [Mass fraction] 98 % Chris Boothe MD Work Phone: [facility] 06-28-2021 09:45-0400 Systolic blood pressure 180 mm[Hg] Chris Boothe MD Work Phone: [facility] 06-28-2021 07:41-0400 Body mass index (BMI) [Ratio] 24.13 kg/m2 Chris Boothe MD Work Phone: [facility] 06-28-2021 07:41-0400 Body weight 65.77 kg Chris Boothe MD Work Phone: [facility] 06-28-2021 03:49-0400 Body temperature 97.9 [degF] Chris Boothe MD Work Phone: [facility] 05-11-2021 15:31-0400 Diastolic blood pressure 63 mm[Hg] [address] 05-11-2021 15:31-0400 Heart rate 84 /min [address] 05-11-2021 15:31-0400 Respiratory rate 16 /min [address] 05-11-2021 15:31-0400 Systolic blood pressure 132 mm[Hg] [address] 05-11-2021 13:31-0400 Body temperature 97.2 [degF] [address] 05-01-2021 14:36-0400 Body mass index (BMI) [Ratio] 25.81 kg/m2 Tia Baugh PA-C Work Phone: [facility] 05-01-2021 14:36-0400 Body temperature 98.29 [degF] Tia Baugh PA-C Work Phone: [facility] 05-01-2021 14:36-0400 Body weight 70.35 kg Tia Baugh PA-C Work Phone: [facility] 05-01-2021 14:36-0400 Diastolic blood pressure 88 mm[Hg] Tia Baugh PA-C Work Phone: [facility] 05-01-2021 14:36-0400 Heart rate 77 /min Tia Baugh PA-C Work Phone: [facility] 05-01-2021 14:36-0400 Respiratory rate 16 /min Tia Baugh PA-C Work Phone: [facility] 05-01-2021 14:36-0400 SaO2% (BldA) [Mass fraction] 97 % Tia Baugh PA-C Work Phone: [facility] 05-01-2021 14:36-0400 Systolic blood pressure 137 mm[Hg] Tia Baugh PA-C Work Phone: [facility] 04-17-2021 11:06-0500 Diastolic blood pressure 79 mm[Hg] Jef Sierra Jr., DPM Work Phone: [facility] 04-17-2021 11:06-0500 Heart rate 99 /min Jef Sierra Jr., DPM Work Phone: [facility] 04-17-2021 11:06-0500 Systolic blood pressure 123 mm[Hg] Jef Sierra Jr., DPM Work Phone: [facility] 04-17-2021 10:49-0500 Body temperature 98.2 [degF] Jef Sierra Jr., DPM Work Phone: [facility] 03-27-2021 11:06-0500 Body temperature 97.9 [degF] Jef Mariela Lux., DPM Work Phone: [facility] 03-27-2021 11:06-0500 Diastolic blood pressure 88 mm[Hg] Jef Mariela Jr., DPM Work Phone: [facility] 03-27-2021 11:06-0500 Heart rate 89 /min Jef Mariela Jr., DPM Work Phone: [facility] 03-27-2021 11:06-0500 Systolic blood pressure 146 mm[Hg] Jef Mariela Jr., DPM Work Phone: [facility] 02-20-2021 09:55-0500 Diastolic blood pressure 85 mm[Hg] Jef Mariela Jr., DPM Work Phone: [facility] 02-20-2021 09:55-0500 Heart rate 89 /min Jef Mariela Jr., DPM Work Phone: [facility] 02-20-2021 09:55-0500 Systolic blood pressure 154 mm[Hg] Jef Mariela Jr., DPM Work Phone: [facility] 02-20-2021 09:52-0500 Body temperature 97.59 [degF] Jef Mariela Jr., DPM Work Phone: [facility] 2021 11:17-0500 Body temperature 97.7 [degF] Jef Mariela Jr., DPM Work Phone: [facility] 2021 11:17-0500 Diastolic blood pressure 80 mm[Hg] Jef Mariela Jr., DPM Work Phone: [facility] 2021 11:17-0500 Heart rate 96 /min Jef Mariela Jr., DPM Work Phone: [facility] 2021 11:17-0500 Systolic blood pressure 157 mm[Hg] Jef Mariela Jr., DPM Work Phone: [facility] 01-30-2021 10:31-0500 Body temperature 98.4 [degF] Jef Mariela Jr., DPM Work Phone: [facility] 01-30-2021 10:31-0500 Diastolic blood pressure 81 mm[Hg] Jef Mariela Jr., DPM Work Phone: [facility] 01-30-2021 10:31-0500 Heart rate 98 /min Jef Mariela Jr., DPM Work Phone: [facility] 01-30-2021 10:31-0500 Systolic blood pressure 156 mm[Hg] Jef Mariela Jr., DPM Work Phone: [facility] 01-24-2021 15:58-0500 Body temperature 97.7 [degF] Jef Mariela Jr., DPM Work Phone: [facility] 01-24-2021 15:58-0500 Diastolic blood pressure 80 mm[Hg] Jef Mariela Jr., DPM Work Phone: [facility] 01-24-2021 15:58-0500 Heart rate 101 /min Jef Mariela Jr., DPM Work Phone: [facility] 01-24-2021 15:58-0500 Systolic blood pressure 163 mm[Hg] Jef Mariela Jr., DPM Work Phone: [facility] 01-16-2021 10:58-0500 Body temperature 97.7 [degF] Jef Mariela Jr., DPM Work Phone: [facility] 01-16-2021 10:58-0500 Diastolic blood pressure 83 mm[Hg] Jef Mariela Jr., DPM Work Phone: [facility] 01-16-2021 10:58-0500 Heart rate 102 /min Jef Mariela Jr., DPM Work Phone: [facility] 01-16-2021 10:58-0500 Systolic blood pressure 143 mm[Hg] Jef Mariela Jr., DPM Work Phone: [facility] 01-09-2021 08:43-0500 Body temperature 97.2 [degF] Jef Mariela Jr., DPM Work Phone: [facility] 01-09-2021 08:43-0500 Diastolic blood pressure 81 mm[Hg] Jef Mariela Jr., DPM Work Phone: [facility] 01-09-2021 08:43-0500 Heart rate 99 /min Jef Mariela Jr., DPM Work Phone: [facility] 01-09-2021 08:43-0500 Systolic blood pressure 156 mm[Hg] Jef Mariela Jr., DPM Work Phone: [facility] 01-02-2021 09:09-0500 Body temperature 97.7 [degF] Jef Mariela Jr., DPM Work Phone: [facility] 01-02-2021 09:09-0500 Diastolic blood pressure 85 mm[Hg] Jef Mariela Jr., DPM Work Phone: [facility] 01-02-2021 09:09-0500 Heart rate 83 /min Jef Mariela Jr., DPM Work Phone: [facility] 01-02-2021 09:09-0500 Systolic blood pressure 149 mm[Hg] Jef Mariela Jr., DPM Work Phone: [facility] 12-19-2020 11:17-0400 Body height 165.1 cm Jef Mariela Jr., DPM Work Phone: [facility] 12-19-2020 11:17-0400 Body mass index (BMI) [Ratio] 25.46 kg/m2 Jef Mariela Jr., DPM Work Phone: [facility] 12-19-2020 11:17-0400 Body temperature 97.2 [degF] Jef Mariela Jr., DPM Work Phone: [facility] 12-19-2020 11:17-0400 Body weight 69.4 kg Jef Mariela Jr., DPM Work Phone: [facility] 12-19-2020 11:17-0400 Diastolic blood pressure 84 mm[Hg] Jef Mariela Jr., DPM Work Phone: [facility] 12-19-2020 11:17-0400 Heart rate 111 /min Jef Mariela Jr., DPM Work Phone: [facility] 12-19-2020 11:17-0400 Systolic blood pressure 144 mm[Hg] Jef Mariela Jr., DPM Work Phone: [facility] 10-17-2020 08:11-0400 Body height 153.7 cm Jef Mariela Jr., DPM Work Phone: [facility] 10-17-2020 08:11-0400 Body mass index (BMI) [Ratio] 29.39 kg/m2 Jef Mariela Jr., DPM Work Phone: [facility] 10-17-2020 08:11-0400 Body temperature 97.2 [degF] Jef Mariela Jr., DPM Work Phone: [facility] 10-17-2020 08:11-0400 Body weight 69.4 kg Jef Velasquezn Jr., DPM Work Phone: [facility] 10-17-2020 08:11-0400 Diastolic blood pressure 79 mm[Hg] Jef Mariela Jr., DPM Work Phone: [facility] 10-17-2020 08:11-0400 Heart rate 82 /min Jef Mariela Jr., DPM Work Phone: [facility] 10-17-2020 08:11-0400 Systolic blood pressure 133 mm[Hg] Jef Mariela Jr., DPM Work Phone: [facility] 10-03-2020 11:22-0400 Diastolic blood pressure 83 mm[Hg] [facility] 10-03-2020 11:22-0400 Heart rate 84 /min [facility] 10-03-2020 11:22-0400 Respiratory rate 16 /min [facility] 10-03-2020 11:22-0400 Systolic blood pressure 174 mm[Hg] [facility] 10-03-2020 09:15-0400 Body temperature 97.9 [degF] [facility] 09-26-2020 11:50-0400 Body height 165.1 cm Franck Mtz MD Work Phone: [facility] 09-26-2020 11:50-0400 Body mass index (BMI) [Ratio] 25.96 kg/m2 Franck Mtz MD Work Phone: [facility] 09-26-2020 11:50-0400 Body weight 70.76 kg Franck Mtz MD Work Phone: [facility] 09-26-2020 11:50-0400 Diastolic blood pressure 67 mm[Hg] Franck Mtz MD Work Phone: [facility] 09-26-2020 11:50-0400 Heart rate 105 /min Franck Mtz MD Work Phone: [facility] 09-26-2020 11:50-0400 Systolic blood pressure 142 mm[Hg] Franck Mtz MD Work Phone: [facility] 09-21-2020 13:31-0400 Diastolic blood pressure 68 mm[Hg] [facility] 09-21-2020 13:31-0400 Heart rate 89 /min [facility] 09-21-2020 13:31-0400 Respiratory rate 16 /min [facility] 09-21-2020 13:31-0400 Systolic blood pressure 154 mm[Hg] [facility] 09-21-2020 11:36-0400 Body temperature 97.9 [degF] [facility] 09-14-2020 14:39-0400 Body temperature 99.39 [degF] Jef Sierra Jr., DPM Work Phone: [facility] 09-14-2020 14:39-0400 Diastolic blood pressure 85 mm[Hg] Jef Sierra Jr., DPM Work Phone: [facility] 09-14-2020 14:39-0400 Heart rate 98 /min Jef Sierra Jr., DPM Work Phone: [facility] 09-14-2020 14:39-0400 Systolic blood pressure 145 mm[Hg] Jef Sierra Jr., DPM Work Phone: [facility] 09-13-2020 09:34-0400 Body height 165.1 cm Luis Miguel Kaur MD Work Phone: [facility] 09-13-2020 09:34-0400 Body mass index (BMI) [Ratio] 25.66 kg/m2 Luis Miguel Kaur MD Work Phone: [facility] 09-13-2020 09:34-0400 Body weight 69.94 kg Luis Miguel Kaur MD Work Phone: [facility] 09-13-2020 09:34-0400 Diastolic blood pressure 74 mm[Hg] Luis Miguel Kaur MD Work Phone: [facility] 09-13-2020 09:34-0400 Heart rate 89 /min Luis Miguel Kaur MD Work Phone: [facility] 09-13-2020 09:34-0400 Systolic blood pressure 158 mm[Hg] Luis Miguel Kaur MD Work Phone: [facility] 04-18-2020 08:16-0500 Body height 153.7 cm Jef Mariela Lux., DPM Work Phone: [facility] 04-18-2020 08:16-0500 Body mass index (BMI) [Ratio] 29.39 kg/m2 Jef Velasquezn Jr., DPM Work Phone: [facility] 04-18-2020 08:16-0500 Body weight 69.4 kg Jef Vieiracheryl Lux., DPM Work Phone: [facility] 04-18-2020 08:16-0500 Diastolic blood pressure 86 mm[Hg] Jef Vieiracheryl Lux., DPM Work Phone: [facility] 04-18-2020 08:16-0500 Systolic blood pressure 136 mm[Hg] Jef Vieiracheryl Lux., DPM Work Phone: [facility] 05-29-2018 09:31-0400 BMI (Body Mass Index) 25.29 kg/m2 [facility] 05-29-2018 09:31-0400 Body Temperature 98.4 [degF] [facility] 05-29-2018 09:31-0400 BP Diastolic 90 mm[Hg] [facility] 05-29-2018 09:31-0400 BP Systolic 159 mm[Hg] [facility] 05-29-2018 09:31-0400 Height 165.1 cm [facility] 05-29-2018 09:31-0400 Pulse (Heart Rate) 102 /min [facility] 05-29-2018 09:31-0400 Pulse Oximetry 100 % [facility] 05-29-2018 09:31-0400 Respiratory Rate 16 /min [facility] 05-29-2018 09:31-0400 Weight 68.95 kg [facility] 01-01-2018 14:05-0500 BMI (Body Mass Index) 25.07 kg/m2 Luis Miguel Kaur [facility] Work Phone: 01-01-2018 14:05-0500 BP Diastolic 75 mm[Hg] [facility] Work Phone: 01-01-2018 14:05-0500 BP Systolic 121 mm[Hg] [facility] Work Phone: 01-01-2018 14:05-0500 Height 166.4 cm [facility] Work Phone: 01-01-2018 14:05-0500 Pulse (Heart Rate) 108 /min [facility] Work Phone: 01-01-2018 14:05-0500 Weight 69.4 kg [facility] Work Phone: 04-07-2017 12:24-0500 BP Diastolic 67 mm[Hg] [facility] 04-07-2017 12:24-0500 BP Systolic 100 mm[Hg] [facility] 04-07-2017 12:24-0500 Pulse (Heart Rate) 98 /min [facility] 04-07-2017 12:22-0500 BMI (Body Mass Index) 26.49 kg/m2 [facility] 04-07-2017 12:22-0500 Height 165.1 cm [facility] 04-07-2017 12:22-0500 Respiratory Rate 16 /min [facility] 04-07-2017 12:22-0500 Weight 72.21 kg [facility] Encounters Encounter Date Encounter Type Care Provider Facility Start: 04-16-2024 End: 04-16-2024 Emergency department patient visit [facility] [place] [place]: 02-23-2024 ambulatory DATA TRANSCRIBER Jami L Jemima Facil ity:[facility] Start: 11-21-2023 End: 11-21-2023 ambulatory DATA TRANSCRIBER Jami L Jemima Facility:[facility] Start: 10-24-2023 End: 10-24-2023 ambulatory DATA TRANSCRIBER Jami L Jemima Facility:[facility] Start: 10-10-2023 ambulatory DATA TRANSCRIBER Jami Onofre Facilit y:[facility] Start: 08-19-2023 End: 08-19-2023 ambulatory NADIA CHAUDHARY Not Available Start: 05-27-2023 End: 05-27-2023 ambulatory LEILA LINTON [place] Start: 03-29-2023 Clinisync Result Encounter Rufus Perez MD Work Phone: [facility] External [facility] Unsolicited Start: 03-29-2023 Clinisync Result Encounter Rufus Perez MD Work Phone: [facility] External [facility] Unsolicited Start: 11-22-2022 End: 11-25-2022 ambulatory GANGA SAVAGE [facility] Start: 04-02-2022 End: 04-05-2022 ambulatory ALISIA VAISHALI CRUMP [facility] Start: 04-02-2022 End: 04-04-2022 Subsequent hospital visit by physician Vineet McH Xr [facility] Comment on above: S/P cervical spinal fusion Start: 12-04-2021 End: 12-06-2021 Subsequent hospital visit by physician Vineet C-Arm 1 [facility] Comment on above: Atlantoaxial instabi lity; S/P cervical spinal fusion Start: 11-22-2021 End: 11-22-2021 ambulatory Rufus Perez Facility:[facility] Start: 11-22-2021 End: 11-22-2021 ambulatory II Rufus Perez Work Phone: [facility] Work Phone: Start: 11-22-2021 End: 11-22-2021 Departed Referred II Rufus Perez Work Phone: [facility] Start: 08-20-2021 End: 08-22-2021 Evaluation and management of inpatient JERRY POZO Facility:[facility] Start: 07-14-2021 End: 08-10-2021 Evaluation and management of inpatient Anthony Lucero DO Work Phone: [facility] Start: 07-13-2021 End: 07-14-2021 Emergency department patient visit Anthony Villarreal MD Work Phone: [facility] ED Comment on above: COVID-19 (Primary Dx ); Pneumonia of left lower lobe due to infectious organism; Hypokalemia; Hypomagnesemia; 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 Start: 06-28-2021 End: 07-10-2021 Evaluation and management of inpatient Wil Martinez MD Work Phone: [facility] STEP DOWN Start: 06-28-2021 End: 06-28-2021 Emergency department patient visit Chris Boothe MD Work Phone: [facility] ED Comment on above: Non-intractable vomi ting with nausea, unspecified vomiting type (Primary Dx); Altered mental status, unspecified altered mental status type; Leukocytosis, unspecified type Start: 05-18-2021 End: 05-29-2021 Evaluation and management of inpatient [facility] Start: 05-18-2021 End: 05-18-2021 Emergency department patient visit [facility] Start: 05-15-2021 ambulatory [facility] Facilit y:[facility] Start: 05-11-2021 ambulatory SANIA WELDON Facility: [facility] Start: 05-11-2021 End: 05-11-[address] [id number] Start: 05-11-2021 End: 05-11-2021 Patient encounter procedure Sania Weldon DO Work Phone: [facility] Comment on above: CIDP (chronic inflam matory demyelinating polyneuropathy) (Primary Dx) Start: 05-07-2021 ambulatory [facility] Facilit y:[facility] Start: 05-01-2021 End: 05-01-2021 ambulatory [facility] Start: 05-01-2021 End: 05-01-2021 Office outpatient visit 15 minutes Tia Baugh PA-C Work Phone: [facility] [place] Comment on above: Partial thickness bu rn of single finger of right hand excluding thumb, initial encounter (Primary Dx); Wound infection; Laceration of right thumb, initial encounter Start: 04-25-2021 ambulatory [facility] Facilit y:[facility] Start: 04-17-2021 End: 04-17-2021 ambulatory [facility] Start: 04-17-2021 End: 04-17-2021 Office outpatient visit 15 minutes Jef Sierra DPM Work Phone: [facility] Comment on above: Chronic ulcer of gre at toe of left foot with fat layer exposed (HCC) (Primary Dx) Start: 04-12-2021 ambulatory [facility] Facilit y:[facility] Start: 04-12-2021 ambulatory [facility] Facilit y:[facility] Start: 04-06-2021 End: 04-06-2021 Evaluation and management of inpatient PCP PCP UNKNOWN~[id number] PHYSICIAN PHYSICIAN [facility] Start: 04-06-2021 End: 04-07-2021 Evaluation and management of inpatient VAISHALI SLIMAN [facility] Start: 04-05-2021 ambulatory [facility] Facilit y:[facility] Start: 03-27-2021 End: 03-27-2021 ambulatory [facility] Start: 03-27-2021 End: 03-27-2021 Office outpatient visit 15 minutes Jef Sierra DPM Work Phone: [facility] Comment on above: Chronic ulcer of gre at toe of left foot with fat layer exposed (HCC) (Primary Dx) Start: 03-07-2021 ambulatory KRYSTYNA BUSBY Facility :[facility] Start: 03-06-2021 End: 03-06-2021 ambulatory [facility] Start: 03-01-2021 ambulatory [facility] Facilit y:[facility] Start: 02-21-2021 ambulatory [facility] Facilit y:[facility] Start: 02-20-2021 End: 02-20-2021 ambulatory [facility] Start: 02-20-2021 End: 02-20-2021 Patient encounter procedure Jef Sierra DPM Work Phone: [facility] Comment on above: Chronic ulcer of gre at toe of left foot with fat layer exposed (HCC) Start: 02-15-2021 ambulatory [facility] Facilit y:[facility] Start: 02-14-2021 ambulatory [facility] Facilit y:[facility] Start: 02-12-2021 ambulatory [facility] Facilit y:[facility] Start: 02-07-2021 ambulatory [facility] Facilit y:[facility] Start: 2021 End: 2021 ambulatory [facility]EF [facility]L [facility] Start: 2021 End: 2021 Patient encounter procedure Jef Velasquezn DPM Work Phone: [facility] Comment on above: Ulcer of left foot w ith fat layer exposed (HCC) (Primary Dx) Start: 01-30-2021 End: 01-30-2021 ambulatory JEF MARIELA [facility] Start: 01-30-2021 End: 01-30-2021 Patient encounter procedure Jef Mariela DPM Work Phone: [facility] Comment on above: Ulcer of left foot w ith fat layer exposed (HCC) (Primary Dx) Start: 01-24-2021 End: 01-24-2021 ambulatory JEF VELASQUEZErna LUX. [facility] Start: 01-24-2021 End: 01-24-2021 Patient encounter procedure Jef Mariela DPM Work Phone: [facility] Comment on above: Ulcer of left foot w ith fat layer exposed (HCC) (Primary Dx) Start: 01-23-2021 ambulatory NERI SANTA Facilit y:[facility] Start: 01-16-2021 End: 01-16-2021 ambulatory JEF VELASQUEZErna LUX. 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 [facility] Start: 01-09-2021 End: 01-09-2021 Patient encounter procedure Jef Sierra DPM Work Phone: [facility] Comment on above: Ulcer of left foot w ith fat layer exposed (HCC) (Primary Dx) Start: 01-02-2021 End: 01-02-2021 ambulatory JEF SIERRA JR. [facility] Start: 01-02-2021 End: 01-02-2021 Patient encounter procedure Jef Sierra DPM Work Phone: [facility] Comment on above: Non-pressure chronic ulcer of other part of left foot with fat layer exposed (HCC) (Primary Dx); Ulcer of left foot with fat layer exposed (HCC) Start: 01-01-2021 ambulatory NERI SANTA Facilit y:[facility] Start: 12-27-2020 ambulatory NERI SANTA Facilit y:[facility] Start: 12-27-2020 ambulatory SHARON Harrison cility:[facility] Start: 12-26-2020 ambulatory SELF SELF Facility:[facility] Start: 12-19-2020 End: 12-19-2020 ambulatory JEF SIERRA JR. [facility] Start: 12-19-2020 End: 12-19-2020 Patient encounter procedure Jef Sierra DPM Work Phone: [facility] Comment on above: Ulcer of left foot w ith fat layer exposed (HCC) (Primary Dx) Start: 12-13-2020 ambulatory KRYSTYNAAGUSTO BUSBY Facility :[facility] Start: 12-13-2020 ambulatory SHARON Harrison cility:[facility] Start: 12-06-2020 Orders Only Jef unger DPM Work Phone: [facility] Start: 12-05-2020 End: 12-05-2020 ambulatory JEF SIERRA JR. [facility] Start: 11-16-2020 End: 11-16-2020 ambulatory JEF MARILEA LUX. [facility] Start: 10-17-2020 End: 10-21-2020 ambulatory JEF VIEIRACHERYL LUX. [facility] Start: 10-17-2020 End: 10-17-2020 Office outpatient visit 15 minutes Jef Sierra DPSallie Work Phone: [facility] Comment on above: Chronic ulcer of gre at toe of left foot, unspecified ulcer stage (HCC) (Primary Dx) Start: 10-10-2020 End: 10-10-2020 Office outpatient visit 25 minutes Olga Lidia Matos MD Work Phone: [facility] Comment on above: Primary open angle g laucoma (POAG) of right eye, severe stage (Primary Dx); Primary open angle glaucoma (POAG) of left eye, severe stage; Diabetic macular edema; Pseudophakia Start: 10-03-2020 End: 10-03-[address] [id number] Start: 10-03-2020 End: 10-03-2020 Patient encounter procedure Franck Mtz MD Work Phone: Infusion [facility] Comment on above: CIDP (chronic inflam matory demyelinating polyneuropathy) (Primary Dx) Start: 09-26-2020 End: 09-26-2020 Subsequent hospital visit by physician Franck Mtz MD Work Phone: Imaging [facility] Comment on above: Arrived Start: 09-26-2020 End: 09-26-2020 Office outpatient visit 25 minutes Franck Mtz MD Work Phone: [facility] Comment on above: CIDP (chronic inflam matory demyelinating polyneuropathy) (Primary Dx) Start: 09-21-2020 End: 09-21-[address] [facility] Start: 09-21-2020 End: 09-21-2020 Patient encounter procedure Neri Santa DO Work Phone: [facility] Comment on above: 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 Start: 09-14-2020 End: 09-14-2020 Office outpatient visit 15 minutes Jef Sierra DPM Work Phone: [facility] Comment on above: Great toe pain, left (Primary Dx); Foot abscess, left Start: 09-13-2020 End: 09-13-2020 Chart abstracting Jef Sierra DPM Work Phone: [facility] Comment on above: Asthma, [...] minutes Luis Miguel Kaur MD Work Phone: [facility] Comment on above: Type 2 diabetes bety itus with diabetic polyneuropathy, with long-term current use of insulin (Primary Dx); Acquired hypothyroidism Start: 09-12-2020 ambulatory JEF SIERRA JR. [facility] Start: 04-25-2020 End: 04-25-2020 Orders Only Kristen Chamberlain Work Phone: [facility] Start: 02-17-2020 End: 02-17-2020 Subsequent hospital visit by physician Sr Santa [facility] Start: 01-27-2020 End: 01-28-2020 Patient encounter procedure NERI SANTA Facility:[facility]1 Start: 12-22-2019 End: 12-23-2019 Patient encounter procedure NERI SANTA Facility:[facility] Start: 12-20-2019 End: 12-20-2019 Emergency department patient visit NERI SANTA [facility] Start: 12-20-2019 End: 12-20-2019 Emergency department patient visit Andres Lubin Work Phone: [facility] Comment on above: Avulsion of fingerna il, initial encounter (Primary Dx) Start: 05-29-2018 End: 05-29-2018 Emergency department patient visit Jonathan Graves Jax Work Phone: [facility] Comment on above: Cellulitis (Primary Dx) Start: 01-20-2018 End: 01-20-2018 Patient encounter procedure Rich Beltran [facility] Comment on above: Type 2 diabetes bety itus without complication, with long-term current use of insulin Start: 01-06-2018 End: 01-06-2018 Patient encounter Balbina Goss [facility] Comment on above: Appointment Start: 01-05-2018 End: 01-05-2018 Patient encounter Yusra Ching [facility] Comment on above: Type 2 diabetes bety itus without complication, with long-term current use of insulin (Primary Dx) Start: 01-01-2018 End: 01-01-2018 Office outpatient visit 25 minutes Luis Miguel Kaur Work Phone: [facility] Comment on above: Type 2 diabetes bety itus with diabetic polyneuropathy, without long-term current use of insulin (Primary Dx); Mixed hyperlipidemia Start: 01-01-2018 End: 01-01-2018 Patient encounter Historical Provider Neurology Madie Velazquez Start: 12-16-2017 Patient encounter procedure Pili Gilliam Facility:[place] Start: 11-25-2017 Patient encounter procedure Pili Gilliam Facility:[place] Start: 11-25-2017 End: 11-25-2017 Patient encounter Pili Gilliam Work Phone: [facility] Start: 11-03-2017 Patient encounter procedure Pili Eun Mane Facility:[place] Start: 08-22-2017 End: 08-22-2017 Patient encounter procedure Mark Anthony Mcdonald Facility:[place] Start: 08-14-2017 Patient encounter procedure Mark Anthony Mcdonald Facility:[place] Start: 06-13-2017 Patient encounter procedure Martha C [place] Facility:[place] Start: 06-04-2017 End: 06-05-2017 Emergency department patient visit Ariel Franklin Facility:[place] Start: 04-11-2017 End: 04-11-2017 Ambulatory Martha Harris [place] Work Phone: [facility] Start: 04-07-2017 Office/outpatient olivier solis, level 3 Pili Gilliam Work Phone: [facility] Start: 03-28-2017 End: 03-28-2017 Ambulatory Pili Bhatiaman Work Phone: [facility] Start: 03-14-2017 End: 03-14-2017 Ambulatory Pilisarai Juárez Gilliam Work Phone: [facility] Procedures Date Procedure Procedure Detail Performing Clinician Start: 03-29-2023 [facility] [place]/ AUTO DIFF D aram Perez MD Work Phone: Start: 04-02-2022 Radex spine cervical 4 or 5 views Alisia Crump DO Work Phone: Start: 12-04-2021 Radex spine cervical 2 or 3 views Alie Loza WEASAND TRIMMER - CATCHER FILTER TIP Work Phone: Start: 08-20-2021 Antibody screen JERRY BARRAZA Comment on above: Performed By: #### [id number] #### [address] Start: 08-10-2021 Glucose blood reagent strip [...] cervical 2 or 3 views Kam Loera WEASAND TRIMMER - CATCHER FILTER TIP Work Phone: Start: 08-07-2021 Glucose blood reagent [...] angio abd&plvis c ntrst mtrl w/wo cntrst imselin Grove MD Work Phone: Start: 07-25-2021 Ct cervical spine w/ o contrast material Kam Prado WEASAND TRIMMER - SUPERVISOR IRRIGATION Work Phone: Start: 07-25-2021 End: 07-25-2021 Transfusion of packed red blood cells Keri Hart MD Work Phone: Start: 07-25-2021 Radiologic exam abdomen 1 view Keri Hart MD Work Phone: Start: 07-25-2021 End: 07-25-2021 Blood count hemoglobin Missy Diallo Work Phone: Start: 07-25-2021 Electroencephalogram w/rec awake&drowsy Sindy Sunshine WEASAND TRIMMER - CATCHER FILTER TIP Work Phone: Start: 07-25-2021 End: 07-25-2021 Calcium ionized Manolo Eun Diallo Work Phone: Start: 07-25-2021 BASIC METABOLIC [...] enh ncd id imfluor stain ea Jany Sallie Penny WEASAND TRIMMER - CATCHER FILTER TIP Work Phone: Start: 07-24-2021 End: 07-24-2021 Blood [...] K Adilson Coyle MD Work Phone: Start: 7 End: 07-21-2021 Blood count complete automated Johnny north MD Work Phone: Start: 07-20-2021 Glucose blood reagent strip Johnny Robledo MD Work Phone: Start: 07-20-2021 Glucose blood reagent strip Johnny Robledo MD Work Phone: Start: 07-20-2021 Assay of troponin quantitative Vale Schmidt MD Work Phone: Start: 07-20-2021 End: 07-20-2021 [...] 07-15-2021 Assay of glutamyltrase gamma Ava Stemple WEASAND TRIMMER - SUPERVISOR IRRIGATION Work Phone: Start: 07-15-2021 BASIC METABOLIC PANE L W/ REFLEX TO MG FOR LOW K Tami Vega MD Work Phone: Start: 07-15-2021 Hepatic function panel Ava Stemple WEASAND TRIMMER - SUPERVISOR IRRIGATION Work Phone: Start: 07-15-2021 Ecg routine ecg w/le ast 12 lds trcg only w/o i&r Tami Vega MD Work Phone: Start: 07-14-2021 Glucose blood reagent strip Silver Carmona MD Work Phone: Start: 07-14-2021 Glucose blood reagent strip Silver Carmona MD Work Phone: Start: 07-14-2021 Culture bacterial bl ood aerobic w/id isolates Ava Stemple WEASAND TRIMMER - SUPERVISOR IRRIGATION Work Phone: Start: 07-14-2021 CULTURE, BLOOD 1 Bridge tte Stemple WEASAND TRIMMER - SUPERVISOR IRRIGATION Work Phone: Start: 07-14-2021 Assay of magnesium [...] cervical 2 or 3 views Kam Prado WEASAND TRIMMER - SUPERVISOR IRRIGATION Work Phone: Start: 07-10-2021 Insj prph ctr vad w/ subq port age 5 yr/> Meka Crowe MD Work Phone (unformatted): [phone] Start: 07-10-2021 COVID-19, RAPID Rufus Argueta MD Work Phone: Start: 07-10-2021 Ct cervical spine w/ o contrast material Kam Prado WEASAND TRIMMER - SUPERVISOR IRRIGATION Work Phone: Start: 07-10-2021 Glucose blood reagent strip Silver Carmona MD Work Phone: Start: 07-10-2021 Glucose blood reagent strip Silver Carmona MD Work Phone: Start: 07-10-2021 Assay of magnesium Tyreed paulette Wagner MD Work Phone: Start: 07-10-2021 [...] Phone: Start: 07-08-2021 Assay of magnesium Pard eep Bernard VIVEROS Work Phone: Start: 07-08-2021 BASIC METABOLIC PANE L W/ REFLEX TO MG FOR LOW K Hari Wagner MD Work Phone: Start: 07-08-2021 C-reactive protein Neal [...] Phone: Start: 07-06-2021 Fluoroscopy during operation Alisia Vaishali Alisia DO Work Phone: Start: 07-06-2021 Calcium ionized Johnny Robledo MD Work Phone: Start: 07-06-2021 OPEN HEART PANEL Dimas Robledo MD Work Phone: Start: 07-06-2021 Culture bacterial qu anttative colony count urine Johnny Robledo MD Work Phone: Start: 07-06-2021 End: 07-06-2021 Transfusion of packed red blood cells Nas Canales WEASAND TRIMMER - PRINTED CIRCUIT BOARD ASSEMBLER Start: 07-06-2021 Blood typing serologic abo Johnny [...] brain stem w/o w/contrast material Sindy Sunshine WEASAND TRIMMER - CATCHER FILTER TIP Work Phone: Start: 07-05-2021 Glucose blood reagent strip Johnny Robledo MD Work Phone: Start: 07-05-2021 Radiologic exam swal low function contrast study Sindy Sunshine WEASAND TRIMMER - CATCHER FILTER TIP Work Phone: Start: 07-05-2021 End: 07-05-2021 Potassium serum plasma/whole blood Tami Vega MD Work Phone: Start: 07-05-2021 Glucose blood reagent strip Johnny Robledo MD Work Phone: Start: 07-05-2021 Assay of magnesium Tyreed paulette Wagner MD Work Phone: Start: 07-05-2021 BASIC METABOLIC PANE L W/ REFLEX TO MG FOR LOW K Hari Wagner MD Work Phone: Start: 07-05-2021 C-reactive protein Neal torsten Argueta MD Work Phone: Start: 07-04-2021 Glucose blood reagent strip Johnny Robledo MD Work Phone: Start: 07-04-2021 Mri spinal canal cer vical w/o & w/contr matrl Kam Prado WEASAND TRIMMER - SUPERVISOR IRRIGATION Work Phone: Start: 07-04-2021 Glucose blood reagent strip Johnny Robledo MD Work Phone: Start: 07-04-2021 End: 07-04-2021 CULTURE, BLOOD 1 Giulia Bray APR N - CATCHER FILTER TIP Work Phone: Start: 07-04-2021 Glucose blood reagent strip Johnny Robledo MD Work Phone: Start: 07-04-2021 End: 07-04-2021 Assay of magnesium Hari Wagner MD Work Phone: Start: 07-04-2021 BASIC METABOLIC PANE L W/ REFLEX TO MG FOR LOW K Hari Bernard VIVEROS Work Phone: Start: 07-04-2021 C-reactive protein Neal [...] study Meka Crowe MD Work Phone (unformatted): [phone] Start: 07-03-2021 Glucose blood reagent strip Johnny Robledo MD Work Phone: Start: 07-03-2021 Radiologic exam swal low function contrast study Rufus Argueta MD Work Phone: Start: 07-03-2021 Echo tthrc r-t 2d w/ wom-mode compl spec&colr d Meka Crowe MD Work Phone (unformatted): [phone] Start: 07-03-2021 Glucose blood reagent strip Johnny Robledo MD Work Phone: Start: 07-03-2021 Assay of magnesium Tyreed paulette Wagner MD Work Phone: Start: 07-03-2021 BASIC [...] 1 Moni Crowe MD Work Phone (unformatted): [phone] Start: 07-02-2021 End: 07-02-2021 Esophagoscopy intra/transmural needle [...] 1 Moni Crowe MD Work Phone (unformatted): [phone] Start: 06-30-2021 End: 06-30-2021 Blood count hemoglobin [...] 1 Moni Crowe MD Work Phone (unformatted): [phone] Start: 06-30-2021 C-reactive protein Neal Argueta MD Work Phone: Start: 06-29-2021 Glucose blood reagent strip Jenifer Jewell MD Work Phone: Start: 06-29-2021 Ct cervical spine w/ contrast material Meka Crowe MD Work Phone (unformatted): [phone] Start: 06-29-2021 Ct thorax w/o contra st material Meka Crowe MD Work Phone (unformatted): [phone] Start: 06-29-2021 Radiologic exam ches t single view Becki Chang MD Work Phone: Start: 06-29-2021 RESPIRATORY PANEL, M ABBY, WITH COVID-19 Becki Chang MD Work Phone: Start: 06-29-2021 Glucose blood reagent strip Jenifer Jewell MD Work Phone: Start: 06-29-2021 Virus centrifuge enh ncd id imfluor stain ea Becki Chang MD Work Phone: Start: 06-29-2021 Electroencephalogram w/rec awake&drowsy Israr Wesley Lopez MD Work Phone: Start: 06-29-2021 Glucose [...] interferon Jenifer Jewell MD Work Phone: Start: 05-13-2022 Ecg routine ecg w/le ast 12 lds [...] Work Phone: Start: 05-11-2021 Creatinine blood Franck Mtz MD Work Phone: Start: 03-01-2021 Follow-up visit Follow-up [facility]UR[facility] Start: 02-14-2021 Ophthalmic examinati on and evaluation Jef Sierra Jr. DPM Work Phone: Start: 12-27-2020 Ophthalmic examinati on and evaluation Jef Sierra Jr. DPM Work Phone: Start: 12-19-2020 APPLY DRESSING Jef Sierra DPM Work Phone: Start: 10-11-2020 Computerized ophthal becky [...] or At-Risk (2 of 2 - PPSV23) [facility] Start: 08-12-2023 Lipid [facility] Start: 07-09-2023 End: 07-09-2023 Patient encounter procedure 07/09/2023 9:05 AM EDT Office Visit [facility] [address] [place] [phone] Nadia Chaudhary APRN-CATCHER FILTER TIP [address] [place] [address] [facility] Start: 10-01-2022 End: 10-01-2022 Patient encounter procedure 10/01/2022 Office Visit Neurosurgery Alisia Crump Vaishali, DO [address] [place] [address] [facility] Start: 09-27-2022 GFR test (Diabetes, CKD 3-4, OR last GFR 15-59) GFR test (Diabetes, CKD 3-4, OR last GFR 15-59) [facility] Start: 09-09-2022 Hemoglobin A1c measurement A1C test (Diabetic or Prediabetic) [facility] Start: 07-24-2022 Screening for malignant neoplasm of colon [facility] Start: 06-30-2022 Diabetic foot examination [facility] Start: 06-28-2022 Lipid panel [facility] Start: 04-12-2022 Diabetic retinal exam Diabetic retinal exam [facility] Start: 04-12-2022 Diabetic retinal eye exam EYE EXAM [facility] Start: 04-12-2022 Glaucoma screening Diabetic retinal exam [facility] Start: 04-12-2022 [facility] Start: 03-15-2022 LIPIDS LIPIDS [facility] Start: 03-15-2022 Microalbumin measurement, urine, quantitative [facility] Start: 03-15-2022 Thyroid stimulating hormone measurement TSH [facility] Start: 03-08-2022 End: 03-08-2022 Patient encounter procedure 03/08/2022 Office Visit Neurosurgery Alisia Alisia DO Vaishali [address] [place] [id number] [facility] Start: 02-14-2022 Ophthalmic examination and evaluation Ophthalmology Exam [facility] Start: 12-27-2021 Ophthalmic examination and evaluation Ophthalmology Exam [facility] Start: 12-07-2021 End: 12-07-2021 Patient encounter procedure 12/07/2021 Office Visit Urology [facility] Start: 10-18-2021 Influenza vaccination Flu vaccine (Season Ended) [facility] Start: 10-18-2021 [facility] Start: 10-05-2021 Diabetic retinal eye exam DIABETIC EYE EXAM [facility] Start: 09-28-2021 Hemoglobin A1c measurement [facility] Start: 09-17-2021 Influenza vaccination Flu vaccine (#1) [facility] Start: 09-13-2021 Diabetic retinal eye exam [facility] Start: 09-12-2021 Hemoglobin A1c measurement HBA1C TEST [facility] Start: 09-01-2021 LIPIDS LIPIDS [facility] Start: 09-01-2021 Microalbumin measurement, urine, quantitative URINE MICROALBUMIN TEST [facility] Start: 09-01-2021 Potassium [Moles/volume] in Serum or Plasma POTASSIUM [facility] Start: 08-22-2021 End: 08-22-[address] [facility] Start: 08-22-2021 End: 08-22-2021 [facility] [place] Start: 08-16-2021 Diabetic retinal eye exam DIABETIC EYE EXAM [facility] Start: 08-08-2021 End: 08-08-2021 Patient encounter procedure 08/08/2021 Office Visit Infectious Diseases Meka Crowe MD [address] [place] [address] [phone] (Work) [facility] Start: 07-31-2021 End: 07-31-2021 Patient encounter procedure 07/31/2021 Office Visit Podiatry Jef Sierra Jr., DPM [address] [place] [address] [facility] Start: 07-25-2021 End: 07-25-2021 Patient encounter procedure 07/25/2021 Office Visit Neurosurgery Alie Loza, WEASAND TRIMMER - CATCHER FILTER TIP [address] [place] [address] [facility] Start: 07-17-2021 End: 07-17-2021 Patient encounter procedure 07/17/2021 Office Visit Urology Kevin Quintanilla MD [address] [place] [address] [facility] Start: 07-13-2021 End: 07-10-2022 Basic metabolic 2000 panel - Serum or Plasma [facility] Work Phone: Start: 07-10-2021 End: 07-10-2021 Patient encounter procedure 07/10/2021 Office Visit Neurology Franck Mtz MD [address] [place] [phone] [facility] Start: 07-04-2021 Hemoglobin A1c measurement A1C [facility] Start: 07-04-2021 End: 07-04-2021 ambulatory 07/04/2021 Infusion Visit Neurology [facility] Start: 06-20-2021 End: 06-20-2021 ambulatory 06/20/2021 Infusion Visit Neurology [facility] Start: 06-18-2021 End: 06-18-2021 Patient encounter procedure 06/18/2021 Office Visit Endocrinology, Diabetes & Metabolism Luis Miguel Kaur MD [address] [place] [address] [facility] Start: 06-07-2021 End: 06-07-2021 Patient encounter procedure 06/07/2021 Office Visit Ophthalmology Sharon Hernandez MD [address] [place] [address] [facility] Start: 06-06-2021 End: 06-06-2021 ambulatory 06/06/2021 Infusion Visit Neurology [facility] Start: 06-05-2021 End: 06-05-2021 Patient encounter procedure 06/05/2021 Office Visit Orthopaedics Yaritza Stanley MD [address] [place] [address] [facility] Start: 05-31-2021 End: 05-31-2021 Patient encounter procedure 05/31/2021 Office Visit Ophthalmology Sharon Hernandez MD [address] [place] [address] [facility] Start: 05-23-2021 End: 05-23-2021 ambulatory 05/23/2021 Infusion Visit Neurology [facility] Start: 05-15-2021 End: 05-15-2021 Patient encounter procedure 05/15/2021 Office Visit Ophthalmology Olga Lidia Matos MD [address] [place] [address] [facility] Start: 04-17-2021 End: 04-17-2021 Patient encounter procedure 04/17/2021 Office Visit Podiatry Jef Sierra Jr., DPSallie [address] [place] [address] [phone] [facility] Start: 03-06-2021 End: 03-06-2021 Patient encounter procedure 03/06/2021 Office Visit Jef Vieira Jr., DPSallie [address] [place] [address] [facility] Start: 03-04-2021 Hemoglobin A1c measurement [facility] Start: 02-20-2021 End: 02-20-2021 Patient encounter procedure 02/20/2021 Office Visit Jef Vieira Jr., DPSallie [address] [place] [address] [facility] Start: 2021 End: 2021 Patient encounter procedure 2021 Office Visit Jef Vieira Jr., DPSallie [address] [place] [place] [address] [facility] Start: 01-30-2021 End: 01-30-2021 Patient encounter procedure 01/30/2021 Office Visit Jef Vieira Jr., DPSallie [address] [place] [address] [facility] Start: 01-23-2021 End: 01-23-2021 Patient encounter procedure 01/23/2021 Office Visit Jef Vieira Jr., DPSallie [address] [place] [address] [facility] Start: 01-16-2021 End: 01-16-2021 Patient encounter procedure 01/16/2021 Office Visit Jef Vieira Jr., DPSallie [address] [place] [address] [facility] [facility] Start: 01-09-2021 End: 01-09-2021 Patient encounter procedure 01/09/2021 Office Visit Jef Vieira Jr., MARK [address] [place] [address] [facility] Start: 01-01-2021 End: 01-01-2021 Patient encounter procedure 01/01/2021 Office Visit Neurology Nurys [place], WEASAND TRIMMER-CATCHER FILTER TIP [address] [facility] [address] [place] [address] [facility] [facility] Start: 12-26-2020 End: 12-26-2020 Patient encounter procedure 12/26/2020 Office Visit PodiatrJef Boykin Jr., DPSallie [address] [place] [address] [facility] Start: 12-02-2020 Hemoglobin A1c measurement A1C [facility] Start: 11-30-2020 End: 11-30-2020 Patient encounter procedure 11/30/2020 Office Visit Ophthalmology Sharon Hernandez MD [address] [facility] [address] [place] [address] [facility] Eye [facility] Start: 11-16-2020 End: 11-16-2020 Patient encounter procedure 11/16/2020 Office Visit Jef Vieira Jr., DPSallie [address] [place] [address] [facility] Start: 11-16-2020 End: 11-16-2020 Patient encounter procedure 11/16/2020 Office Visit Endocrinology, Diabetes & Metabolism DarmLuis Miguel still MD [address] [place] [id number] [facility] Endocr[facility]ology Start: 11-14-2020 End: 11-14-2020 Patient encounter procedure 11/14/2020 Office Visit Ophthalmology Olga Lidia Matos MD [address] [place] [address] [place] [address] [facility] Start: 11-07-2020 End: 11-07-2020 Patient encounter procedure 11/07/2020 Office Visit Neurology Nurys [place], [employer] FILTER TIP [address] [address] Neurology [facility] Start: 10-18-2020 Influenza vaccination [facility] Start: 10-18-2020 End: 10-18-2020 Patient encounter procedure 10/18/2020 Office Visit Ophthalmology Sharon Hernandez MD [address] [place] [address] [place] [address] [facility] Start: 10-17-2020 End: 10-17-2020 ambulatory 10/17/2020 Infusion Visit Neurology Infusion [facility] Start: 10-10-2020 End: 10-10-2020 Patient encounter procedure 10/10/2020 Office Visit Ophthalmology Olga Lidia Matos MD [address] [place] [address] [place] [address] [facility] Start: 10-06-2020 Pneumococcal 0-64 years Vaccine (2 - PCV) Pneumococcal 0-64 years Vaccine (2 - PCV) [facility] Start: 10-06-2020 [facility] Start: 10-05-2020 End: 10-05-2020 Patient encounter procedure 10/05/2020 Office Visit Ophthalmology Sharon Hernandez MD [address] [place] [address] [place] [address] [facility] Eye [facility] Start: 10-03-2020 End: 10-03-2020 ambulatory Infusion [facility] Start: 10-03-2020 End: 10-03-2020 Patient encounter procedure 10/03/2020 Office Visit Podiatry Jef Sierra Jr., DPM [address] [place] [address] [phone] [facility] Start: 09-26-2020 End: 09-26-2021 SENSORY MOTOR NEUROPATHY PANEL [facility] Work Phone: Comment on above: Expected: 09/26/2020, Expires: 2 Start: 09-26-2020 End: 09-26-2021 VEGF [facility] Comment on above: Expected: 09/26/2020, Expires: 2 Start: 09-19-2020 End: 09-19-2020 ambulatory 09/19/2020 Infusion Visit Neurology Infusion [facility] Start: 09-14-2020 End: 09-14-2020 Patient encounter procedure 09/14/2020 Office Visit Podiatry Jef Sierra Jr., DPM [address] [place] [address] [phone] [facility] Start: 10-19-2019 Influenza vaccination Flu vaccine (#1) [employer] [facility] [place] Start: 10-19-2019 Influenza vaccination given Sequential Influenza Vaccine (#1) [facility] Start: 08-25-2019 Creatinine measurement [facility] [place] Start: 08-25-2019 Potassium monitoring Potassium monitoring [facility] [place], [place] Start: 08-12-2019 Urine screening for protein [facility] [employer] Start: 12-26-2018 LIPIDS LIPIDS [facility] Work Phone: Start: 12-19-2018 Diabetic retinal eye exam DIABETIC EYE EXAM [facility] Work Phone: Start: 10-09-2018 Thyrotropin Qn TSH [facility] Work Phone: Start: 08-04-2018 Annual Wellness Visit (AWV) Annual Wellness Visit (AWV) ARASELI CRUZ esolidar [facility] Start: 07-19-2018 HbA1c (Bld) [Mass fraction] A1C test (Diabetic or Prediabetic) [place], [place] Start: 07-06-2018 End: 07-06-2018 Ambulatory 07/06/2018 Office Visit Neurology Nurys [place], [employer] FIL[employer] TIP [address] [address] Neurology [facility] Start: 06-25-2018 Hemoglobin A1c/Hemoglobin.total mass fraction (Bld) HBA1C TEST [facility] Work Phone: Start: 04-04-2018 Protein mass conc MAMMOGRAM SCREENING DISCUSSION [facility] Work Phone: Start: 04-04-2018 Screening mammography MAMMOGRAM SCREENING DISCUSSION [facility] Start: 04-02-2018 End: 04-02-2018 Ambulatory 04/02/2018 Appointment NEUROPHYSIOLOGY Estefania Markham MD [address] [place] [phone] Department of Neurology Start: 03-20-2018 End: 03-20-2018 Ambulatory 03/20/2018 Office Visit Ophthalmology Grace Washington MD [address] [place] [address] [facility] Start: 03-05-2018 End: 03-05-2018 Ambulatory Division of Hematology & Oncology Start: 02-03-2018 End: 02-03-2018 Ambulatory 02/03/2018 Office Visit Sleep Medicine Stefani Estrada MD [address] [place] [address] [address] [place] [address] Department of Sleep Medicine Start: 01-22-2018 End: 01-22-2018 Ambulatory [facility] Rheumatology Start: 10-18-2017 Influenza vaccination [facility] Start: 10-18-2017 Influenza vaccination given SEQUENTIAL INFLUENZA VACCINE (#1) [facility] Start: 06-28-2017 Lipid panel Lipid screen [place], [place] Start: 04-11-2017 Ambulatory 04/11/2017 Hospital Encounter Martha Yanney, DPM [address] [place] [address] [phone] [facility] Start: 04-07-2017 Ambulatory 04/07/2017 Office Visit Cardiology Pili Gilliam, DPM [address] [place] [address] [phone] Reji Miramontes III, DO [address] [address] [phone] [facility] Start: 10-18-2016 Influenza vaccination SEQUENTIAL INFLUENZA VACCINE (#1) [facility] Start: 06-25-2014 Diabetic microalbuminuria test Diabetic microalbuminuria test [place], [place] Start: 12-30-2013 Administration of herpes zoster vaccine Zoster Vaccines (2 of 3) [facility] Start: 12-30-2013 Shingles vaccine (1 of 2) Shingles vaccine (1 of 2) [facility] Start: 12-30-2013 Shingles vaccine (2 of 3) Shingles vaccine (2 of 3) [facility] Start: 12-30-2013 Zoster vaccine hzv live for subcutaneous use ZOSTER (SHINGLES) VACCINE (2 of 3) [facility] Start: 12-30-2013 [facility] Start: 2013 Administration of herpes zoster vaccine Zoster Vaccines (1 of 2) [facility] Start: 2013 Colonoscopy COLON CANCER SCREENING DISCUSSION [facility] Work Phone: Start: 2013 Protein mass conc COLON CANCER SCREENING DISCUSSION [facility] Work Phone: Start: 2013 Screening for malignant neoplasm of breast [facility] Start: 2013 Screening for malignant neoplasm of colon [facility] Start: 2013 Shingles Vaccine (1 of 2) Shingles Vaccine (1 of 2) [place] Start: 2013 Zoster vaccine hzv live for subcutaneous use ZOSTER (SHINGLES) VACCINE (1 of 2) [facility] Start: 02-07-2008 Colonoscopy COLORECTAL CANCER SCREENING DISCUSSION [facility] Start: 02-07-2008 Screening for malignant neoplasm of colon [facility] Start: 2003 Screening for malignant neoplasm of breast Mammogram [facility] Start: 1993 Screening for malignant neoplasm of cervix [facility] Start: 02-07-1984 Screening for malignant neoplasm of cervix [facility] Start: 1982 DTaP/Tdap/Td vaccine (1 - Tdap) DTaP/Tdap/Td vaccine (1 - Tdap) [facility] Start: 1982 Hepatitis B vaccine (1 of 3 - Risk 3-dose series) Hepatitis B vaccine (1 of 3 - Risk 3-dose series) [facility] Start: 1982 Third diphtheria, tetanus and acellular pertussis (DTaP) vaccination TDAP (ADULT) [facility] Start: 1982 [facility] Start: 1981 Hepatitis C antibody, confirmatory test Hepatitis C Screening [facility] Start: 1981 Hepatitis C screening [facility] Start: 1981 Microalbumin measurement, urine, quantitative URINE MICROALBUMIN TEST [facility] Work Phone: Start: 1981 Tetanus vaccination TETANUS [facility] Start: 1979 COVID-19 Vaccine (1 of 2) COVID-19 Vaccine (1 of 2) [facility] Start: 1978 HIV screening [facility] Start: 02-07-1976 HIV screening HIV SCREENING DISCUSSION [facility] Work Phone: Start: 1975 Adolescent depression screening assessment Depression Screening (PHQ9) [facility] Start: 1975 COVID-19 Vaccine (1) COVID-19 Vaccine (1) [facility] Start: 1975 Depression Screen Depression Screen [facility] Start: 1975 Depression screening using PHQ-9 (Patient Health Questionnaire 9) score [facility] Start: 1975 [facility] [employer] Start: 1973 Diabetic foot examination (regime/therapy) [facility] Start: 1973 Diabetic retinal exam Diabetic retinal exam [place], [place] Start: 1973 Microalbumin measurement, urine, quantitative Urine Microalbumin [facility] Start: 1973 Ophthalmic examination and evaluation OPHTHALMOLOGY EXAM [facility] Start: 1973 Urine, microalbumin URINE MICROALBUMIN [facility] Start: 1969 Pneumococcal Vaccine: Ped or At-Risk (1 of 2 - PPSV23) Pneumococcal Vaccine: Ped or At-Risk (1 of 2 - PPSV23) [facility] Start: 02-07-1968 COVID-19 Vaccine (1) COVID-19 Vaccine (1) [facility] Start: 02-07-1968 [facility] [employer] Start: 1966 History and physical examination, annual for health maintenance Wellness Visit [facility] Start: 1963 COVID-19 Vaccine (#1) COVID-19 Vaccine (#1) [facility] [employer] [employer] Start: 1963 Annual Wellness Visit (AWV) Annual Wellness Visit (AWV) [facility] Start: 1963 Diabetic foot examination DIABETIC FOOT EXAM [facility] Start: 1963 HbA1c HEMOGLOBIN A1C [facility] Start: 1963 Hemoglobin A1c measurement A1C [facility] Start: 1963 Hepatitis C antibody, confirmatory test HEPATITIS C SCREENING [facility] Start: 1963 HEPATITIS C SCREENING HEPATITIS C SCREENING [facility] Start: 1963 Hepatitis C screening Hepatitis C screen [place], [place] Start: 1963 Protein mass conc Mammogram [facility] Start: 1963 Screening colonoscopy COLONOSCOPY [facility] Start: 1963 Screening for malignant neoplasm of cervix PAP SMEAR [facility] Start: 1963 Screening for malignant neoplasm of colon Colorectal Cancer Screening: Colonoscopy [facility] Start: 1963 Screening mammography Mammogram [facility] Start: 1963 Tetanus vaccination [facility] Start: 1963 [facility] [employer] End: 09-14-2021 Aerobic microbial culture Wound Aerobic Culture Microbiology Routine Foot abscess, left 1 Occurrences starting 09/14/2020 until 09/14/2021 [facility] Comment on above: 1 Occurrences starting 09/14/2020 until 09/14/2021 Aerobic microbial culture Wound Aerobic Culture Microbiology Routine Wound infection Partial thickness burn of single finger of right hand excluding thumb, initial encounter 05/01/2021 3:00 PM EDT [facility] Work Phone: Basic Metabolic Pane l w/ Reflex to MG [facility] Work Phone: Basic Metabolic Pane l w/ Reflex to MG [facility] Work Phone: BLOOD GAS, ARTERIAL [facility] [employer] Work Phone: Blood gas, arterial [facility] [employer] Work Phone: C-reactive protein [facility] [employer] Work Phone: CBC W Auto Different ial panel - Blood [facility] Work Phone: End: 09-08-2021 CBC W Auto Differential panel - Blood [facility] Work Phone: CBC W Auto Different ial panel - Blood [facility] Work Phone: Continuous pulse oximetry [facility] Work Phone: End: 02-17-2020 COVID-19 COVID-19 Lab Routine Once for 1 Occurrences starting 02/17/2020 until 02/17/2020 [employer] [place], [place] Comment on above: Once for 1 Occurrences starting 02/17/20 20 until 02/17/2020 End: 09-08-2021 Creatinine [Mass/volume] in Serum or Plasma [facility] Work Phone: Culture, Anaerobic a nd Aerobic [facility] Work Phone: End: 06-28-2021 Culture, Blood 1 [employer] Phone: Comment on above: One Time for 1 Occurrences starting 06/17 until 06/28/2021 Culture, Blood 1 [employer] Phone: Culture, Blood 1 [employer] Phone: Culture, Blood 1 [employer] Phone: Culture,Bacterial Culture,Bacter ial Routine 03/14/2017 9:30 AM [facility] Work Phone: Glucose [Mass/volume ] in Serum or Plasma [employer] Phone: Glucose [Mass/volume ] in Serum or Plasma [employer] Phone: End: 08-02-2021 Glucose [Mass/volume] in Serum or Plasma [employer] Phone: End: 07-26-2021 Initiate RT Adult Mechanical Ventilation Protocol [employer] Phone: Mechanical Ventilati on with default initial settings [employer] Phone: Oxygen therapy [Mini mum Data Set] [employer] Phone: Oxygen therapy [Mini mum Data Set] [employer] Phone: End: 06-28-2021 PREVIOUS SPECIMEN [employer] Phone: End: 07-15-2021 PREVIOUS SPECIMEN [employer] Phone: End: 07-18-2021 PREVIOUS SPECIMEN [employer] Phone: End: 08-08-2021 PREVIOUS SPECIMEN [employer] Phone: Respiratory Care Evaluation and Treat [employer] Phone: End: 07-05-2021 COMPLIANCE REPRESENTATIVE clinical swallow evaluation [employer] Work Phone: End: 06-29-2021 Speech and language therapy regime [facility] Work Phone: Spontaneous Breathin g Trial (SBT) [facility] Work Phone: End: 07-14-2021 Wound ostomy eval and treat [facility] Work Phone: Immunizations Immunization Date Immunization Notes Care Provider [facility] 10-07-2019 influenza virus vacc ine, unspecified formulation Jef Sierra Jr., DPM Work Phone: [facility] 10-07-2019 pneumococcal vaccine , unspecified formulation Jef Sierra Jr., DPM Work Phone: [facility] 11-04-2013 influenza virus vacc ine, whole virus Franck Mtz MD Work Phone: [facility] 11-04-2013 influenza, seasonal, injectable Franck Mtz MD Work Phone: [facility] 11-04-2013 zoster vaccine, live Franck Mtz MD Work Phone: [facility] 11-04-2013 influenza virus vacc ine, unspecified formulation Luis Miguel Darmody [facility] Work Phone: 11-04-2013 zoster vaccine, unspecified formulation Franck Mtz MD Work Phone: [facility] 07-29-2012 pneumococcal polysaccharide vaccine, 23 valent Franck Mtz MD Work Phone: [facility] Payers Date Payer Category Payer Medicaid [id number] 2021 Self-pay [id number] 2017 Unknown [id number] 2002 Medicare [id number] [id number] .[id number] 2002 Medicare [id number]. 1.13.385.2.7.3.440712.315 2002 Medicare [id number] 1.2 .840.019590.1.13.385.2.7.3.458560.315 2002 Unknown xxxxxxxxx 2.16. 840.1.546586.3.249.13 2001 Unknown [id number] 1.2.8 40.825509.1.13.385.2.7.3.655044.315 2001 Unknown 1.2.840.302134. 1.13.385.2.7.3.936233.315 1963 Unknown [id number] 2.16.8 40.1.640652.3.579.2.902 1963 Unknown [id number] 2.16.84 0.1.970455.3.579.2.593 1963 Unknown [id number] 2.16.84 0.1.041624.3.579.2.593 1963 Unknown [id number] 2.16. 840.1.627329.3.579.2.903 1963 Unknown [id number] 2.16. 840.1.462009.3.579.2.903 1963 Unknown [id number] 2.16. 840.1.113076.3.579.2.903 1963 Unknown [id number] 2.16. 840.1.269979.3.579.2.903 1963 Unknown [id number] 2.16. 840.1.085083.3.579.2.903 1963 Unknown [id number] 2.16. 840.1.682393.3.579.2.903 1963 Unknown [id number] 2.16. 840.1.446735.3.579.2.903 1963 Unknown [id number] 2.16. 840.1.301494.3.579.2.903 1963 Unknown [id number] 2.16. 840.1.373513.3.579.2.903 1963 Unknown [id number] 2.16. 840.1.359150.3.579.2.903 1963 Unknown [id number] 2.16. 840.1.970189.3.579.2.903 1963 Unknown [id number] 2.16. 840.1.822388.3.579.2.903 1963 Unknown [id number] 2.16. 840.1.763102.3.579.2.903 1963 Unknown [id number] 2.16. 840.1.624604.3.579.2.903 1963 Unknown [id number] 2.16. 840.1.411435.3.579.2.903 1963 Unknown [id number] 2.16. 840.1.042617.3.579.2.903 1963 Unknown [id number] 2.16. 840.1.721128.3.579.2.903 1963 Unknown [id number] 2.16.8 40.1.381927.3.579.2.1143 1963 Unknown [id number] 2.16.8 40.1.965238.3.579.2.1143 1963 Unknown [id number] 2.16. 840.1.432300.3.579.2.903 1963 Unknown [id number] 2.16. 840.1.828660.3.579.2.903 1963 Unknown [id number] 2.16. 840.1.592697.3.579.2.903 1963 Unknown [id number] 2.16.8 40.1.233968.3.579.2.647 1963 Unknown [id number] 2.16. 840.1.736186.3.579.2.594 1963 Unknown [id number] 2.16. 840.1.538418.3.579.2.594 1963 Unknown [id number] 2.16. 840.1.647103.3.579.2.594 1963 Unknown [id number] 2.16. 840.1.145223.3.579.2.594 1963 Unknown [id number] 2.16. 840.1.585887.3.579.2.594 1963 Unknown [id number] 2.16. 840.1.393117.3.579.2.594 1963 Unknown [id number] 2.16. 840.1.359286.3.579.2.594 1963 Unknown [id number] 2.16 840.1.825539.3.579.2.594 1963 Unknown [id number] 2.16. 840.1.381701.3.579.2.594 1963 Unknown [id number] 2.16. 840.1.751900.3.579.2.594 1963 Unknown [id number] 2.16. 840.1.916560.3.579.2.594 1963 Unknown [id number] 2.16. 840.1.535643.3.579.2.594 1963 Unknown [id number] 2.16. 840.1.126983.3.579.2.594 1963 Unknown [id number] 2.16. 840.1.029140.3.579.2.594 1963 Unknown [id number] 2.16. 840.1.704465.3.579.2.594 1963 Unknown [id number] 2.16. 840.1.192824.3.579.2.594 1963 Unknown [id number] 2.16. 840.1.748499.3.579.2.594 1963 Unknown [id number] 2.16. 840.1.666471.3.579.2.594 1963 Unknown [id number] 2.16. 840.1.613726.3.579.2.594 1963 Unknown [id number] 2.16. 840.1.554672.3.579.2.594 1963 Unknown [id number] 2.16. 840.1.524735.3.579.2.594 1963 Unknown [id number] 2.16. 840.1.399617.3.579.2.594 1963 Unknown [id number] 2.16. 840.1.727206.3.579.2.594 1963 Unknown [id number] 2.16.8 40.1.627570.3.579.2.174 1963 Unknown [id number] 2.16. 840.1.726260.3.579.2.175 1963 Unknown [id number] 2.16. 840.1.005771.3.579.2.175 1963 Unknown [id number] 2.16.84 0.1.755869.3.579.2.1259 1963 Unknown [id number] 2.16.8 40.1.534251.3.579.2.727 1963 Unknown [id number] 2.16.8 40.1.360718.3.579.2.727 1963 Unknown [id number] 2.16.8 40.1.657149.3.579.2.727 1963 Unknown [id number] 2.16.8 40.1.895601.3.579.2.727 1963 Unknown [id number] 2.16.8 40.1.179275.3.579.2.727 1959 Medicare [id number] 1959 Unknown [id number] 2.16. 840.1.511287.3.249.13 Medicare [id number] 2.16 .840.1.002717.3.249.13 Unknown [id number] Unknown [id number] 2.16.8 40.1.579409.3.579.2.531 Social History Date Type Detail Facility Start: 04-07-2017 End: 12-04-2021 Tobacco smoking status NHIS Former smoker [facility] End: 02-18-1996 History of tobacco use Current smoker [facility] Start: 1965 Sex Assigned At Not on file [facility] [employer] Work Phone: Start: 03-15-2017 End: 03-29-2017 Tobacco smoking status NHIS Unknown if ever smoked [facility] End: 02-18-1996 History of tobacco use Cigarette Smoker [facility] Work Phone: Start: 04-07-2017 Tobacco Comment doesn't rememb er how much she smoked [facility] Start: 04-07-2017 Alcohol Comment rarely [facility] Start: 12-20-2019 End: 12-04-2021 Tobacco use and exposure Never used [facility] Start: 12-20-2019 End: 05-01-2021 Alcohol intake Current drinker of alcohol (finding) [facility] Start: 04-07-2021 End: 07-13-2021 Exposure to SARS-CoV-2 (event) Not sure [facility] Start: 10-05-2017 End: 04-02-2022 Alcohol intake Current non-drinker of alcohol (finding) [place] Start: 1965 Sex Assigned At Female F [facility] Gender identity Not on file [facility] are Medical Equipment Procedure Code Equipment Code Equipment Origin al Text Equipment Identifier Dates 1 strip by Unkno wn route 3 times daily (take before meals). [id number] Start: 10-13-2017 End: 01-07-2018 Lens Au00t0 D 23 .5 - [id number] Start: 12-23-2018 Osc Tissue [place] [id number] Start: 02-23-2020 Implant Opth 250 sq Mm Jo 1 Qdrnt Ins Fx Sut Hl Rcs Knt Cpb - [id number] Start: 02-23-2020 [id number] Start: 07-06-2021 Set Screw Spinal M6 - [id number] Start: 09-25-2021 Clinical Notes 09-13-2020 to 04-16-2024 Ja Daniels, RHINA - 08/10/2021 5:[address], [place] - 08/10/2021 1:44 PM Yvonne Stokes MD - 08/10/2021 11:38 AM Familia Ochoa MD - 08/10/2021 7:54 AM EDTKarie Oretz - [place] Note Date & Type Note Facility 04-16-2024 Note ED Patient Education Note Orthopedics Acute Back Pain, Adult Acute back pain is sudden and usually short-lived. It is often caused by an injury to the muscles and tissues in the back. The injury may result from: ??? A muscle, tendon, or ligament getting overstretched or torn. Ligaments are tissues that connect bones to each other. Lifting something improperly can cause a back strain. ??? Wear and tear (degeneration) of the spinal disks. Spinal disks are circular tissue that provide cushioning between the bones of the spine (vertebrae). ??? Twisting motions, such as while playing sports or doing yard work. ??? A hit to the back. ??? Arthritis. You may have a physical exam, lab tests, and imaging tests to find the cause of your pain. Acute back pain usually goes away with rest and home care. Follow these instructions at home: Managing pain, stiffness, and swelling ??? Take [id number] and prescription medicines only as told by your health care provider. Treatment may include medicines for pain and inflammation that are taken by mouth or applied to the skin, or muscle relaxants. ??? Your health care provider may recommend applying ice during the first 24?48 hours after your pain starts. To do this: ? Put ice in a plastic bag. ? Place a towel between your skin and the bag. ? Leave the ice on for 20 minutes, 2?3 times a day. ? Remove the ice if your skin turns bright red. This is very important. If you cannot feel pain, heat, or cold, you have a greater risk of damage to the area. ??? If directed, apply heat to the affected area as often as told by your health care provider. Use the heat source that your health care provider recommends, such as a moist heat pack or a heating pad. ? Place a towel between your skin and the heat source. ? Leave the heat on for 20?30 minutes. ? Remove the heat if your skin turns bright red. This is especially important if you are unable to feel pain, heat, or cold. You have a greater risk of getting burned. Activity ??? Do not stay in bed. Staying in bed for more than 1?2 days can delay your recovery. ??? Sit up and stand up straight. Avoid leaning forward when you sit or hunching over when you stand. ? If you work at a desk, sit close to it so you do not need to lean over. Keep your chin tucked in. Keep your neck drawn back, and keep your elbows bent at a 90-degree angle (right angle). ? Sit high and close to the steering wheel when you drive. Add lower back (lumbar) support to your car seat, if needed. ??? Take short walks on even surfaces as soon as you are able. Try to increase the length of time you walk each day. ??? Do not sit, drive, or informal waiter/waitress one place for more than 30 minutes at a time. Sitting or standing for long periods of time can put stress on your back. ??? Do not drive or use heavy machinery while taking prescription pain medicine. ??? Use proper lifting techniques. When you bend and lift, use positions that put less stress on your back: ? Bend your knees. ? Keep the load close to your body. ? Avoid twisting. ??? Exercise regularly as told by your health care provider. Exercising helps your back heal faster and helps prevent back injuries by keeping muscles strong and flexible. ??? Work with a physical therapist to make a safe exercise program, as recommended by your health care provider. Do any exercises as told by your physical therapist. Lifestyle ??? Maintain a healthy weight. Extra weight puts stress on your back and makes it difficult to have good posture. ??? Avoid activities or situations that make you feel anxious or stressed. Stress and anxiety increase muscle tension and can make back pain worse. Learn ways to manage anxiety and stress, such as through exercise. General instructions ??? Sleep on a firm mattress in a comfortable position. Try lying on your side with your knees slightly bent. If you lie on your back, put a pillow under your knees. ??? Keep your head and neck in a straight line with your spine (neutral position) when using electronic equipment like smartphones or pads. To do this: ? Raise your smartphone or pad to look at it instead of bending your head or neck to look down. ? Put the smartphone or pad at the level of your face while looking at the screen. ??? Follow your treatment plan as told by your health care provider. This may include: ? Cognitive or behavioral therapy. ? Acupuncture or massage therapy. ? Meditation or yoga. Contact a health care provider if: ??? You have pain that is not relieved with rest or medicine. ??? You have increasing pain going down into your legs or buttocks. ??? Your pain does not improve after 2 weeks. ??? You have pain at night. ??? You lose weight without trying. ??? You have a fever or chills. ??? You develop nausea or vomiting. ??? You develop abdominal pain. Get help right away if: ??? You develop new bowel or bladder control problems. ??? Y (more content not included)... [facility] 08-23-2021 Note MR#: [id number] I [facility] Pt. Name: Meg Georges Admitted: 08/19/2021 Discharged: [...] PEG tube. The patient recently was at [facility] in June for complaint of MSSA septicemia. She was trached at that time. She also was found to have an epidural phlegmon, which was causing compression on the cervicomedullary junction. She was given 6 weeks course of antibiotics for osteomyelitis. She had surgery at [facility] postoperatively here after the packing was removed from her nares as she was found to have leaking from her nares. She had a CT facial and brain, which showed a possible CSF leak. Decision was made by our Neurosurgery team and our SICU team to transfer her back to her surgeon since . She was accepted and transferred back to the ICU at [place]. The patient was discharged in stable condition. Electronically Signed by: Jerry Pozo MD 08/23/2021 11:13 A Jerry Pozo MD I have reviewed this discharge summary and confirmed the resident's documentation. Please note that there may be additional documentation from me. Date Dict: 08/22/2021/05:19 P/Mai Grier CNP Date Trans: 08/23/2021 07:42 A/genaro [id number] cc: Johny Beckman M.D. [address] [place] [address]. Emergency Medicine [facility] [address] Neri Santa D.O. 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 [...] Anthropometric Measures: Height: 5' 5 (165.1 cm) [place] Body Weight (IBW): 125 lbs (57 kg) [...] were not included. [facility] -Progress Note Today's Date and Time: 08/10/2021, [...] of C2 fx noted Infection Control Recommendations Remlap Precautions Isolate for Covid until 07-23-21 Antimicrobial [...] through 08-20-21. Patient was transferred back to [facility] on 07-14-21 because of a [...] Friends and Family: Not on file Attends Anglican Services: Not on file Active Member of [...] extension (from neutral), as above. Medical Decision Roetbo-Rkdrrvif-Lquxb: SARS-CoV-2, Rapid COVID-19, Rapid Collected: 07/13/21 0589 Result status: Final Resulting lab: [facility] Reference range: Not Detected Value: [...] this assay. Fact sheet for Healthcare Providers: https://www.fda.gov/media/195640/downl oad Fact sheet for Patients: https://www.fda.gov/media/062041/downl oad Methodology: Isothermal Nucleic Acid Amplification Culture, Respiratory Order: [id number] Status: Final result Visible to patient: No (not released) Next appt: Today at 02:30 PM in Radiology (STV MRI RM 1 (1.5T)) Specimen Information: Sputum Aspirated 0 Result Notes Component 07/24/21 2569 Specimen Description .ASPIRATED SPUTUM Direct Exam < 10 EPITHELIAL CELLS/LPF Direct Exam >25 NEUTROPHILS/LPF Direct Exam MANY GRAM NEGATIVE RODS Abnormal Culture KLEBSIELLA AEROGENES HEAVY GROWTH Abnormal Culture NO NORMAL ROB Resulting Agency [facility] Susceptibility Klebsiella aerogenes (1) Antibiotic [...] Patient's name: Meg Georges Patient's account/billing number: [id number] Patient's Date of : 1965 Age: 56 y.o. Date of Admission: 07/14/2021 4:12 PM Length of stay during current admission: 27 Primary Care Physician: Neri Santa Sr, ICU Attending Physician: Dr. Ochoa Code Status: [...] patient was sent to the ED in [facility] from outpatient infusion center where she [...] Date 08/10/21 0000 - 08/10/21 2359 Shift 6028-5184 1784-6265 8207-8433 24 Hour Total INTAKE I.V.(mL/kg) 169(2.9) 169(2.9) [...] SubCUTAneous Daily Continuous Infusions: dexmedetomidine 0.4 mcg/kg/hr (08/10/21746) sodium chloride 10 mL/hr at 08/10/21746 dextrose 75 mL/hr (08/06/211956) PRN Meds: fentanNYL, [...] Results Component Value Date PHART 7.406 07/06/2021 [id number] 34.8 07/06/2021 PO2ART 279.0 07/06/2021 BWG9VGQ 21.4 07/06/2021 [id number] 99.4 07/06/2021 FIO2 30.0 08/05/2021 Lactic Acid: [...] 1.9 07/17/2021 S. Calcium: Recent Labs 08/10/21 0346 CALCIUM 8.5* S. Ionized Calcium:No results for [...] No results for input(s): LABIRON, TIBC, FERRITIN, KOJBNCAE89, FOLATE, OCCULTBLD in the last 72 hours. [...] MD Department of Internal Medicine/ Critical care [facility]) 08/10/2021, 7:54 AM Attending Physician Statement [...] this chart was generated using voice recognition Proxeon dictation software. 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 PALLIATIVE CARE NURSING ASSESSMENT Patient: Meg Georges Room: 3024/3024-01 Reason For Consult Goals of care evaluation Distress management Guidance and support Facilitate communications Assistance in coordinating care Code Status: Full Code Summary: Pt visit, stable on cpap trial. Awaiting placement to [facility]. Spoke with COURTNEY Santamaria 08/10/21. I gave her suggestions on how to locate Living Will/ Will information. Discussed code classifications again. She confirms understanding and thinks her sister would want to remain full code. Acknowledged and supported Hina in this decision as well as moving forward with transfer to [facility]. Encouraged her to call as needed. Impression: [...] is aware of plan to move to [facility] when bed available. She was told her [...] Hina relates patient filled out DPOAH at [facility] in [place]. I suggested that she continue to try to contact Meg's speech and language assistant but that she could contact [facility] and see if they have Living [...] Supported sister in this, discussed transfer to [facility] soon as bed is available. Wished patient and family well moving forward. Warehouse Laborer Leeann UREÑA, RN, ONN-CG [place] Office: [phone] [place] Office: [phone] [facility] Office: [phone] For Symptom Management Clinic scheduling please call [phone] Images from the original note were not included. [facility] -Progress Note Today's Date and Time: 08/09/2021, [...] of C2 fx noted Infection Control Recommendations Remlap Precautions Isolate for Covid until 07-23-21 Antimicrobial [...] through 08-20-21. Patient was transferred back to [facility] on 07-14-21 because of a [...] Friends and Family: Not on file Attends Anglican Services: Not on file Active Member of [...] extension (from neutral), as above. Medical Decision Uyuxuj-Zkkkuanp-Qupbu: SARS-CoV-2, Rapid COVID-19, Rapid Collected: 07/13/21 3370 Result status: Final Resulting lab: [facility] Reference range: Not Detected Value: DETECTED [...] this assay. Fact sheet for Healthcare Providers: https://www.fda.gov/media/834187/downl oad Fact sheet for Patients: https://www.fda.gov/media/624244/downl oad Methodology: Isothermal Nucleic Acid Amplification Culture, Respiratory Order: [id number] Status: Final result Visible to patient: No (not released) Next appt: Today at 02:30 PM in Radiology (STV MRI RM 1 (1.5T)) Specimen Information: Sputum Aspirated 0 Result Notes Component 07/24/21 7222 Specimen Description .ASPIRATED SPUTUM Direct Exam < 10 EPITHELIAL CELLS/LPF Direct Exam >25 NEUTROPHILS/LPF Direct Exam MANY GRAM NEGATIVE RODS Abnormal Culture KLEBSIELLA AEROGENES HEAVY GROWTH Abnormal Culture NO NORMAL ROB Resulting Agency [facility] Susceptibility Klebsiella aerogenes (1) Antibiotic Interpretation Microscan [...] Patient's name: Meg Georges Patient's account/billing number: [id number] Patient's Date of : 1965 Age: 56 y.o. Date of Admission: 07/14/2021 4:12 PM Length of stay during current admission: 26 Primary Care Physician: Neri Santa Sr, DO [...] patient was sent to the ED in [facility] from outpatient infusion center where she [...] Date 08/09/21 0000 - 08/09/21 2359 Shift 4934-5660 1099-5532 9294-6011 24 Hour Total INTAKE I.V.(mL/kg) 191(3.2) 191(3.2) [...] Results Component Value Date PHART 7.406 07/06/2021 MQH9NZM 34.8 07/06/2021 PO2ART 279.0 07/06/2021 TRL8QMI 21.4 07/06/2021 U8EYRPFN 99.4 07/06/2021 FIO2 30.0 08/05/2021 Lactic Acid: [...] Last 3 Blood Glucose: Recent Labs 08/08/21 06 GLUCOSE 193* HgBA1c: Lab Results Component Value Date LABA1C 9.4 06/28/2021 TSH: Lab Results Component Value Date TSH 7.90 08/07/2021 ANEMIA STUDIES No results for input(s): LABIRON, TIBC, FERRITIN, RQBHXROW00, FOLATE, OCCULTBLD in the last 72 hours. [...] MD Department of Internal Medicine/ Critical care [facility]) 08/09/2021, 8:12 AM Attending Physician Statement [...] this chart was generated using voice recognition Hubblron dictation software. 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 Physical Therapy Facility/Department: [facility] [...] patient was sent to the ED in [facility] from outpatient infusion center where she [...] Commands: Impaired Other (Comment): intermittant, appeared to inside channel account manager R hand to commands, appeared to try [...] without Stair Climbing Raw Score : 6 (08/08/21 160) AM-PAC Inpatient without Stair Climbing T-Scale Score : 26.48 (08/08/21 1601) Mobility Inpatient CMS 0-100% Score: 92.18 (08/08/21 1601) Mobility Inpatient without Stair CMS G-Code Modifier : CM (08/08/21 1601) Goals Short Term Goals Time Frame for [...] were not included. [facility] -Progress Note Today's Date and Time: 08/08/2021, [...] of C2 fx noted Infection Control Recommendations Remlap Precautions Isolate for Covid until 07-23-21 Antimicrobial [...] through 08-20-21. Patient was transferred back to [facility] on 07-14-21 because of a [...] Friends and Family: Not on file Attends Anglican Services: Not on file Active Member of [...] 5 BMP: Recent Labs 08/06/21 0344 08/08/21 0622 NA 143 141 K 3.6* 3.8 CL [...] extension (from neutral), as above. Medical Decision Cgfrfc-Rxmbjcdf-Cjveq: SARS-CoV-2, Rapid COVID-19, Rapid Collected: 07/13/21 4022 Result status: Final Resulting lab: [facility] Reference range: Not Detected Value: [...] this assay. Fact sheet for Healthcare Providers: https://www.fda.gov/media/692949/downl oad Fact sheet for Patients: https://www.fda.gov/media/715591/downl oad Methodology: Isothermal Nucleic Acid Amplification Culture, Respiratory Order: [id number] Status: Final result Visible to patient: No [...] Abnormal Culture NO NORMAL ROB Resulting Agency [facility] Susceptibility Klebsiella aerogenes (1) Antibiotic Interpretation Microscan [...] patient. Please call with questions. Jany Francis, WEASAND TRIMMER - CATCHER FILTER TIP ATTESTATION: I have discussed the case, including pertinent history and exam findings with the WEASAND TRIMMER. I have evaluated the History, physical findings and pictures of the patient and the coffey elements of the encounter have been performed by me. I have reviewed the laboratory data, other diagnostic studies and discussed them with the WEASAND TRIMMER. I have updated the medical record where necessary. I agree with the assessment, plan and orders as documented by the WEASAND TRIMMER. Seth Stokes MD. Critical Care Team - Daily Progress Note Date and time: 08/08/2021 7:18 AM Patient's name: Meg Geroges Patient's account/billing number: [id number] Patient's Date of : 1965 Age: 56 [...] patient was sent to the ED in [facility] from outpatient infusion center where she [...] Date 08/08/21 0000 - 08/08/21 2359 Shift [id number] [phone] 24 Hour Total INTAKE I.V.(mL/kg) 196.4(3.3) 196.4(3.3) [...] Humidification Source: HME Cuff Pressure (cm H2O): (distribution dispatcher) Skin Barrier Applied: (Mepilex placed after trach change) Lab Results Component Value Date PHART 7.406 07/06/2021 WMI9IUQ 34.8 07/06/2021 PO2ART 279.0 07/06/2021 CZA8LVK 21.4 07/06/2021 Y9JIPJSF 99.4 07/06/2021 FIO2 30.0 08/05/2021 Lactic Acid: [...] 23.9 06/28/2021 Basal Metabolic Profile: Recent Labs 08/06/214 08/08/21621 NA 143 141 K 3.6* 3.8 [...] 3 Blood Glucose: Recent Labs 08/06/21 0344 08/08/21621 GLUCOSE 48* 193* HgBA1c: Lab Results Component Value Date LABA1C 9.4 06/28/2021 TSH: Lab Results Component Value Date TSH 7.90 08/07/2021 ANEMIA STUDIES No results for input(s): LABIRON, TIBC, FERRITIN, JPCXOGOU84, FOLATE, OCCULTBLD in the last 72 hours. [...] MD Department of Internal Medicine/ Critical care [facility]) 08/08/2021, 7:18 AM Attending Physician Statement [...] this chart was generated using voice recognition Hubblron dictation software. 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 Neurosurgery attending Supervised passive [...] Anthropometric Measures: Height: 5' 5 (165.1 cm) [place] Body Weight (IBW): 125 lbs (57 kg) [...] CARE NURSING ASSESSMENT Patient: Meg Georges Room: 3024/3024-01 Reason For Consult Goals of care evaluation Distress management Guidance and support Facilitate communications Assistance in coordinating care Code Status: Full Code Impression: Meg Georges is a 56 y.o. 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), Diabetes mellitus ([facility]), Dysphagia, GERD (gastroesophageal reflux disease), Hyperlipidemia, Hypertension, [...] Encephalitis Encephalopathy CIDP (chronic inflammatory demyelinating polyneuropathy) ([facility]) Sepsis ([facility]) Bacteremia Hypothyroidism Hypokalemia Type 2 diabetes mellitus with diabetic polyneuropathy ([facility]) Primary hypertension Upper GI bleed Non-intractable vomiting Unintentional weight loss Metabolic encephalopathy MSSA (methicillin susceptible Staphylococcus aureus) septicemia ([facility]) CRP elevated Bandemia Allergy to multiple antibiotics Pyogenic inflammation of bone (HCC) Acute intractable headache Septic arthritis of cervical spine ([facility]) 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 [...] know that I will be rounding at [facility] all week. Goals/Plan of care Education/support to [...] to call us as needed. Update given. Warehouse Laborer Leeann FENTONN, RN, ONN-CG [place] Office: [phone] [place] Office: [phone] [place] Office: [phone] For Symptom Management Clinic scheduling please call [phone] Images from the original note were not included. [facility] -Progress Note Today's Date and Time: 08/07/2021, [...] prior to surgical intervention. Infection Control Recommendations Remlap Precautions Isolate for Covid until 07-23-21 Antimicrobial [...] through 08-20-21. Patient was transferred back to [facility] on 07-14-21 because of a [...] Friends and Family: Not on file Attends Anglican Services: Not on file Active Member of [...] Decision Making-Imaging: No new imaging Medical Decision Vjnfia-Icmpphys-Sltyt: SARS-CoV-2, Rapid COVID-19, Rapid Collected: 07/13/21 7534 Result status: Final Resulting lab: [facility] Reference range: Not Detected Value: [...] this assay. Fact sheet for Healthcare Providers: https://www.fda.gov/media/145758/downl oad Fact sheet for Patients: https://www.fda.gov/media/715941/downl oad Methodology: Isothermal Nucleic Acid Amplification Culture, Respiratory Order: [id number] Status: Final result Visible to patient: No (not released) Next appt: Today at 02:30 PM in Radiology (STV MRI RM 1 (1.5T)) Specimen Information: Sputum Aspirated 0 Result Notes Component 07/24/21 4976 Specimen Description .ASPIRATED SPUTUM Direct Exam < 10 EPITHELIAL CELLS/LPF Direct Exam >25 NEUTROPHILS/LPF Direct Exam MANY GRAM NEGATIVE RODS Abnormal Culture KLEBSIELLA AEROGENES HEAVY GROWTH Abnormal Culture NO NORMAL ROB Resulting [facility] Susceptibility Klebsiella aerogenes [...] Patient's name: Meg Georges Patient's account/billing number: [id number] Patient's Date of : 1965 Age: 56 y.o. Date of Admission: 07/14/2021 4:12 PM Length of stay during current admission: 24 Primary Care Physician: Neri Santa Sr, DO [...] patient was sent to the ED in [facility] from outpatient infusion center where she [...] Date 08/07/21 0000 - 08/07/21 2359 Shift 9655-8064 5265-7128 0142-1433 24 Hour Total INTAKE I.V.(mL/kg) 382.5(6.4) 382.5(6.4) [...] mcg/kg/hr (08/07/21717) sodium chloride 10 mL/hr at 08/07/21717 dextrose 75 mL/hr (08/06/211956) PRN Meds: fentanNYL, [...] CO2: 36 (%) Position: Semi-Simon's Humidification Source: E Cuff Pressure (cm H2O): (distribution dispatcher) Skin Barrier Applied: (Mepilex placed after trach change) Lab Results Component Value Date PHART 7.406 07/06/2021 ADO9TFQ 34.8 07/06/2021 PO2ART 279.0 07/06/2021 ZFJ4SFO 21.4 07/06/2021 P3WGNMDP 99.4 07/06/2021 FIO2 30.0 08/05/2021 Lactic Acid: [...] Metabolic Profile: Recent Labs 08/05/21 0438 08/06/21 034 NA 143 143 K 3.5* 3.6* BUN [...] No results for input(s): LABIRON, TIBC, FERRITIN, CKFKOEEY41, FOLATE, OCCULTBLD in the last 72 hours. [...] MD Department of Internal Medicine/ Critical care [facility]) 08/07/2021, 7:58 AM Attending Physician Statement [...] this chart was generated using voice recognition Proxeon dictation software. 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 Neurosurgery NATE/Resident Daily Progress [...] in patients neurologic status. Kam Loera, BRIDGER 08/06/21 4:50 PM Associated attestation - Alisia [...] tentatively on 08/22 Beatriz Crump DO Neurosurgeon [facility] reconsult Meg Georges is a 56 y.o. female patient. Hospitalization Day:23 Chief consult reason: re consult for PEG [...] Review: Labs and Imaging: CBC: Recent Labs 08/04/2143908/05/2143708/06/21 0344 WBC 10.5 9.5 12.3* HGB 8.0* 7.7* 8.6* MCV 95.6 98.0 97.4 RDW 18.4* 18.3* 18.0* PLT 429 458* 565* ANEMIA STUDIES: No results for input(s): LABIRON, TIBC, FERRITIN, FZNWRMFJ78, FOLATE, OCCULTBLD in the last 72 hours. BMP: Recent Labs 08/04/2143908/05/2143708/06/21 0344 NA 141 143 143 K 3.5* 3.5* 3.6* CL 108* 109* 109* CO2 22 23 23 BUN 17 14 11 CREATININE 0.57 0.53 0.55 GLUCOSE 195* 121* 48* CALCIUM 8.1* 8.5* 8.5* LFTS: No results for input(s): ALKPHOS, ALT, AST, BILITOT, BILIDIR, LABALBU in the last 72 hours. Amylase/Lipase and Ammonia: Recent Labs 08/04/21439 LIPASE 16 Acute Hepatitis Panel: No results [...] or concerns. Valery Quinteros PGY-1 Internal Medicine [place], [place] 3:59 PM 08/06/2021 Associated attestation - [...] with appropriate modifications. Leigh Mcintosh MD Gastroenterology [facility], [place], [place] Images from the original note were not included. [facility] -Progress Note Today's Date and Time: 08/06/2021, [...] prior to surgical intervention. Infection Control Recommendations Remlap Precautions Isolate for Covid until 07-23-21 Antimicrobial [...] through 08-20-21. Patient was transferred back to [facility] on 07-14-21 because of a [...] Friends and Family: Not on file Attends Anglican Services: Not on file Active Member of [...] Decision Making-Imaging: No new imaging Medical Decision Putffm-Ftmgeqzs-Xggsh: SARS-CoV-2, Rapid COVID-19, Rapid Collected: 07/13/21 5683 Result status: Final Resulting lab: [facility] Reference range: Not Detected Value: [...] this assay. Fact sheet for Healthcare Providers: https://www.fda.gov/media/533619/downl oad Fact sheet for Patients: https://www.fda.gov/media/927860/downl oad Methodology: Isothermal Nucleic Acid Amplification Culture, Respiratory Order: [id number] Status: Final result Visible to patient: No (not released) Next appt: Today at 02:30 PM in Radiology (STV MRI RM 1 (1.5T)) Specimen Information: Sputum Aspirated 0 Result Notes Component 07/24/21 2160 Specimen Description .ASPIRATED SPUTUM Direct Exam < 10 EPITHELIAL CELLS/LPF Direct Exam >25 NEUTROPHILS/LPF Direct Exam MANY GRAM NEGATIVE RODS Abnormal Culture KLEBSIELLA AEROGENES HEAVY GROWTH Abnormal Culture NO NORMAL ROB Resulting Agency [facility] Susceptibility Klebsiella aerogenes [...] patient. Please call with questions. Jany Francis, WEASAND TRIMMER - CATCHER FILTER TIP ATTESTATION: I have discussed the case, including pertinent history and exam findings with the WEASAND TRIMMER. I have evaluated the History, physical findings and pictures of the patient and the coffey elements of the encounter have been performed by me. I have reviewed the laboratory data, other diagnostic studies and discussed them with the WEASAND TRIMMER. I have updated the medical record where necessary. I agree with the assessment, plan and orders as documented by the WEASAND TRIMMER. Seth Stokes MD. Critical Care Team - Daily Progress Note Date and time: 08/06/2021 7:27 AM Patient's name: Meg Georges Patient's account/billing number: [id number] Patient's Date of : 1965 Age: 56 [...] patient was sent to the ED in [facility] from outpatient infusion center where she [...] Date 08/06/21 0000 - 08/06/21 2359 Shift 4810-5329 0555-6333 7092-8303 24 Hour Total INTAKE I.V.(mL/kg) 244.5(4) 244.5(4) [...] Results Component Value Date PHART 7.406 07/06/2021 IMH2GSV 34.8 07/06/2021 PO2ART 279.0 07/06/2021 [id number] 21.4 07/06/2021 S3MSBQSE 99.4 07/06/2021 FIO2 30.0 08/05/2021 Lactic Acid: Lab Results Component Value Date LACTA 1.0 07/13/2021 LACTA 1.6 06/28/2021 DATA: Complete Blood Count: Recent Labs 08/04/21 0440 08/05/21 0438 08/06/21 [...] 23.9 06/28/2021 Basal Metabolic Profile: Recent Labs 08/04/21 0440 08/05/21 0438 08/06/21 [...] No results for input(s): LABIRON, TIBC, FERRITIN, MCTDBGCN79, FOLATE, OCCULTBLD in the last 72 hours. [...] MD Department of Internal Medicine/ Critical care [facility], [facility]) 08/06/2021, 7:27 AM Attending Physician Statement I [...] this chart was generated using voice recognition Hubblron dictation software. 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 Images from the original note were not included. Critical Care Team - Daily Progress Note Date and time: 08/05/2021 1:52 PM Patient's name: Meg Barton Patient's account/billing number: [id number] Patient's Date of : 1965 Age: 56 [...] degree Ulcer prophylaxis: [] PPI Agent, [x] E5Lbodu, [] Sucralfate, [] Other: Glycemic control: Controlled [...] patient was sent to the ED in [facility] from outpatient infusion center where she [...] -628.89 ml Date 08/05/21 0000 - 08/05/21 235 Shift 8627-8619 9407-2689 7030-0884 24 Hour Total INTAKE I.V.(mL/kg) 223.2(3.5) 86.6(1.4) [...] 1143) sodium chloride 10 mL/hr at 08/05/21 1143 sodium chloride dextrose PRN Meds: magnesium hydroxide, [...] Results Component Value Date PHART 7.406 07/06/2021 FLT7ANG 34.8 07/06/2021 PO2ART 279.0 07/06/2021 [id number] 21.4 07/06/2021 Z6YSNUIT 99.4 07/06/2021 FIO2 30.0 08/05/2021 Lactic Acid: [...] 0.57 0.53 CL 107 108* 109* CO2 Magnesium: Lab Results Component Value Date MG 1.8 08/05/2021 MG 1.9 08/04/2021 MG 1.7 08/02/2021 Phosphorus: Lab Results Component Value Date PHOS 1.9 07/17/2021 S. Calcium: Recent Labs 08/05/21437 CALCIUM 8.5* S. Ionized Calcium:No results for [...] No results for input(s): LABIRON, TIBC, FERRITIN, MFNKUJSR79, FOLATE, OCCULTBLD in the last 72 hours. [...] MD Department of Internal Medicine/ Critical care [facility], [facility]) 08/05/2021, 1:52 PM Associated attestation - Aniket Padron MD - 08/05/2021 4:24 PM EDT Attending Physician Statement I have discussed the case of Meg Georges, including pertinent history and exam findings with the resident/fellow/medical student/SUPERVISOR IRRIGATION/PA. I have seen and examined the patient and the coffey elements of the encounter have been performed by me. I agree with the assessment, plan and orders as documented by the resident/fellow/medical student/SUPERVISOR IRRIGATION/PA With changes made to the note as [...] were not included. [facility] -Progress Note Today's Date and Time: 08/05/2021, [...] placed 07/30/21 per ENT Infection Control Recommendations Remlap Precautions Isolate for Covid until 07-23-21 Antimicrobial [...] through 08-20-21. Patient was transferred back to [facility] on 07-14-21 because of a [...] Friends and Family: Not on file Attends [employer] Services: Not on file Active Member of [...] CBC with Differential: Recent Labs 08/04/21 0440 08/05/21 0438 WBC 10.5 9.5 HGB 8.0* 7.7* HCT 23.7* 24.2* PLT 429 458* LYMPHOPCT 17* 19* MONOPCT 7 6 BMP: Recent Labs 08/04/21 0440 08/05/21 0438 NA 141 143 K 3.5* 3.5* CL [...] Decision Making-Imaging: No new imaging Medical Decision Ckkekx-Tfegysvy-Rjdpw: SARS-CoV-2, Rapid COVID-19, Rapid Collected: 07/13/21 3154 Result status: Final Resulting lab: [facility] Reference range: Not Detected Value: [...] this assay. Fact sheet for Healthcare Providers: https://www.fda.gov/media/902534/downl oad Fact sheet for Patients: https://www.fda.gov/media/208970/downl oad Methodology: Isothermal Nucleic Acid Amplification Culture, Respiratory Order: [id number] Status: Final result Visible to patient: No [...] Abnormal Culture NO NORMAL ROB [facility] Suscept[facility] Klebsiella aerogenes (1) Antibiotic Interpretation Microscan [...] were not included. [facility] -Progress Note Today's Date and Time: 08/04/2021, [...] placed 07/30/21 per ENT Infection Control Recommendations Remlap Precautions Isolate for Covid until 07-23-21 Antimicrobial [...] through 08-20-21. Patient was transferred back to [facility] on 07-14-21 because of a [...] Friends and Family: Not on file Attends [employer] Services: Not on file Active Member of [...] Decision Making-Imaging: No new imaging Medical Decision Sdiphp-Hatvhzwu-Yrghg: SARS-CoV-2, Rapid COVID-19, Rapid Collected: 07/13/21 1073 Result status: Final Resulting lab: [facility] Reference range: Not Detected Value: [...] this assay. Fact sheet for Healthcare Providers: https://www.fda.gov/media/537686/downl oad Fact sheet for Patients: https://www.fda.gov/media/615335/downl oad Methodology: Isothermal Nucleic Acid Amplification Culture, Respiratory Order: [id number] Status: Final result Visible to patient: No [...] Abnormal Culture NO NORMAL ROB Resulting Agency [facility] Susceptibility Klebsiella aerogenes (1) Antibiotic Interpretation Microscan [...] in the care of Ms. Georges . [facility] Palliative Care Number [phone] [facility] Palliative Care Number [phone] [facility] Palliative Care Number [phone] Please call with any palliative questions or [...] Chris Lassiter MD 1 capsule at 07/24/21 09 [Held by provider] gabapentin (NEURONTIN) capsule 200 mg 200 mg Oral TID Chris Lassiter MD 200 mg at 07/24/21 09 nafcillin 2,000 mg in dextrose 5 % [...] Daily Clark Iglesias MD 100 mcg at 07/24/21905 enoxaparin (LOVENOX) injection 40 mg 40 mg [...] follow up with adult ENT provider in town. Follow-up: Your follow up appointment can be [...] and Dr. Angel Krueger [address] [facility] [address] OPTION 2: [facility] [address], [address] [place] [address] Appointment scheduling: ISRRAEL MCGRATH MD Pediatric Otolaryngology-Head and Neck Surgery [facility] Otolaryngology group Office ph# [phone] Also available in [place] Pt trach changed without incident, #7.0 XLT, per Dr. Mcgrath. Trach site red, Mepilex to be placed. Pt tolerated well. Images from the original note were not included. Critical Care Team - Daily Progress Note Date and time: 08/04/2021 8:43 AM Patient's name: Meg Georges Patient's account/billing number: [id number] Patient's Date of : 1965 Age: 56 [...] no Ulcer prophylaxis: [x] PPI Agent, [] Z0Kbqyh, [] Sucralfate, [] Other: Glycemic control: controlled; [...] patient was sent to the ED in [facility] from outpatient infusion center where she [...] INTUBATED, ET TUBE MARKING AT LOWER LIP: [facility] SEDATION: Precedex gtt [] Propofol gtt [] [...] Date 08/04/21 0000 - 08/04/21 2359 Shift 0434-6173 1423-1182 5965-3216 24 Hour Total INTAKE I.V.(mL/kg) 376.1(6) 376.1(6) [...] CO2: 37 (%) Position: Semi-Simon's Humidification Source: [facility] Lab Results Component Value Date PHART 7.406 07/06/2021 JLS4BUR 34.8 07/06/2021 PO2ART 279.0 07/06/2021 YNE0PSV 21.4 07/06/2021 F2EZMHHZ 99.4 07/06/2021 FIO2 30.0 08/03/2021 Lactic Acid: [...] PHOS 1.9 07/17/2021 S. Calcium: Recent Labs 08/04/210 CALCIUM 8.1* S. Ionized Calcium:No results for [...] No results for input(s): LABIRON, TIBC, FERRITIN, ALIKOFIU20, FOLATE, OCCULTBLD in the last 72 hours. [...] planned 08/04/21; Lower lobe bilateral pneumonia,Respiratory culture 06/07 - heavy growth klebsiella aerogens; s/p Levaquin [...] clinical course CODE STATUS: Full Code Courtney Semaan MD Department of Internal Medicine/ Critical care [facility]) 08/04/2021, 8:43 AM Associated attestation - Aniket Padron MD - 08/04/2021 1:39 PM EDT Attending Physician Statement I have discussed the case of Meg Georges, including pertinent history and exam findings with the resident/fellow/medical student/SUPERVISOR IRRIGATION/PA. I have seen and examined the patient and the coffey elements of the encounter have been performed by me. I agree with the assessment, plan and orders as documented by the resident/fellow/medical student/SUPERVISOR IRRIGATION/PA With changes made to the note as [...] Status: At risk for malnutrition (Comment) (07/30/21 9908) Context: Acute Illness Findings of the 6 clinical characteristics of malnutrition: Energy Intake: No significant decrease in energy intake (with use of TF) Weight Loss: No significant weight loss Body Fat Loss: No significant body fat loss Muscle Mass Loss: Unable to assess Fluid Accumulation: Mild Extremities,Generalized [employer] Strength: Not Performed Nutrition Assessment: Remains intubated via trach, attempting to wean ventilation. TF running at goal rate 45 mL/hr continuous at visit, pt tolerating. Pt no longer on propofol. Labs/meds reviewed. Wt fluctuation noted, will monitor. Nutrition Related Findings: Labs/meds reviewed. +1 generalized/BLE, +1 pitting BUR edema noted. LBM 08/02. Wound Type: Stage II,Diabetic Ulcer,Surgical Incision Current [...] Anthropometric Measures: Height: 5' 5 (165.1 cm) [place] Body Weight (IBW): 125 lbs (57 kg) Admission Body Weight: 133 lb 13.1 oz (60.7 kg) Current Body Weight: 137 lb 9.2 oz (62.4 kg) (08/03, [facility]), 110.1 % IBW. Weight Source: [...] determine Ashwini Felix MS, RD, LD Contact: [phone] Otolaryngology staff note POD 4 s/p tracheostomy placement Patient was seen and examined this morning On vent, sedated, though weaning 7.0 Shiley XLT cuffed, in good position. Some dried blood around trach but there is no peristomal wound breakdown c-collar still in place Plan for trach change on POD 5 (Friday08/04/21) Sonya Barber APRN - [place] Pediatric Otolaryngology-Head and Neck Surgery [facility] Otolaryngology group Office ph# [phone] Also available in [place] Images from the original note were not included. [facility] -Progress Note Today's Date and Time: 08/03/2021, [...] placed 07/30/21 per ENT Infection Control Recommendations Remlap Precautions Isolate for Covid until 07-23-21 Antimicrobial [...] through 08-20-21. Patient was transferred back to [facility] on 07-14-21 because of a [...] Friends and Family: Not on file Attends [employer] Services: Not on file Active Member of [...] following labs: CBC with Differential: Recent Labs 08/02/21 0454 08/03/21 0446 WBC 12.3* 11.9* HGB 8.0* 8.3* HCT 23.5* 24.8* PLT 398 429 LYMPHOPCT 16* 15* MONOPCT 8 8 BMP: Recent Labs 08/01/21 0452 08/01/21 0452 08/02/21 0454 08/03/21 0446 NA 138 < > 137 139 [...] are unchanged. Suggest ultrasound correlation. Medical Decision Nlqgde-Bdyecyyc-Iikpm: SARS-CoV-2, Rapid COVID-19, Rapid Collected: 07/13/21 3140 Result status: Final Resulting lab: [facility] Reference range: Not Detected Value: [...] this assay. Fact sheet for Healthcare Providers: https://www.fda.gov/media/129043/downl oad Fact sheet for Patients: https://www.fda.gov/media/384278/downl oad Methodology: Isothermal Nucleic Acid Amplification Culture, Respiratory Order: [id number] Status: Final result Visible to patient: No (not released) Next appt: Today at 02:30 PM in Radiology ([facility] MRI RM 1 (1.5T)) Specimen Information: Sputum Aspirated 0 Result Notes Component 07/24/21 5455 Specimen Description .ASPIRATED SPUTUM Direct Exam < 10 EPITHELIAL CELLS/LPF Direct Exam >25 NEUTROPHILS/LPF Direct Exam MANY GRAM NEGATIVE RODS Abnormal Culture KLEBSIELLA AEROGENES HEAVY GROWTH Abnormal Culture NO NORMAL ROB Resulting Agency [facility] [place] Susceptibility Klebsiella aerogenes (1) Antibiotic [...] data were reviewed Discussed with nursing Staff, equipment planner Infection Control and Prevention measures reviewed All prior entries were reviewed Administer medications as ordered Prognosis: Very Guarded Discharge planning reviewed Follow up as outpatient. Thank you for allowing us to participate in the care of this patient. Please call with questions. Jany Francis, WEASAND TRIMMER - CATCHER FILTER TIP ATTESTATION: I have discussed the case, including pertinent history and exam findings with the WEASAND TRIMMER. I have evaluated the History, physical findings and pictures of the patient and the coffey elements of the encounter have been performed by me. I have reviewed the laboratory data, other diagnostic studies and discussed them with the WEASAND TRIMMER. I have updated the medical record where necessary. I agree with the assessment, plan and orders as documented by the WEASAND TRIMMER. Seth Stokes MD. Pager: - Office: Images from the original note were not included. Critical Care Team - Daily Progress Note Date and time: 08/03/2021 7:48 AM Patient's name: Meg Georges Patient's account/billing number: [id number] Patient's Date of : 1965 Age: 56 [...] yes Ulcer prophylaxis: [] PPI Agent, [x] F3Ngswx, [] Sucralfate, [] Other: Glycemic control: high ISS, lantus 16 subq is held Spontaneous breathing trial: trach Bowel regimen/urine output: milk of mag Indwelling catheter/lines: yes De-escalation: yes CURRENT VENTILATION STATUS: [x] Ventilator [] BIPAP [] Nasal Cannula [] Room Air IF INTUBATED, ET TUBE MARKING AT LOWER LIP: cms SEDATION: Precedex gtt [] Propofol gtt [] [...] Date 08/03/21 0000 - 08/03/21 2359 Shift 0358-7955 6815-6253 5374-9345 24 Hour Total INTAKE I.V.(mL/kg) 93.8(1.5) 93.8(1.5) [...] CO2: 30 (%) Position: Semi-Simon's Humidification Source: [facility] Lab Results Component Value Date PHART 7.406 07/06/2021 ZUR0FFS 34.8 07/06/2021 PO2ART 279.0 07/06/2021 RAL7AQW 21.4 07/06/2021 B7KUMOTM 99.4 07/06/2021 FIO2 30.0 08/03/2021 Lactic Acid: Lab Results Component Value Date LACTA 1.0 07/13/2021 LACTA 1.6 06/28/2021 DATA: Complete Blood Count: Recent Labs 08/01/21 0452 08/02/21 0454 08/03/216 WBC 14.0* 12.3* 11.9* HGB 9.1* 8.0* [...] 23.9 06/28/2021 Basal Metabolic Profile: Recent Labs 08/01/21 0452 08/02/21 0454 08/03/216 NA 138 137 139 K 3.2* 3.3* 3.6* BUN 15 15 15 CREATININE 0.72 0.67 0.60 CL 105 106 [...] No results for input(s): LABIRON, TIBC, FERRITIN, AQSMNXGN62, FOLATE, OCCULTBLD in the last 72 hours. [...] MD Department of Internal Medicine/ Critical care [facility], [facility]) 08/03/2021, 7:48 AM Associated attestation - Aniket Padron MD - 08/03/2021 3:44 PM EDT Attending Physician Statement I have discussed the case of Meg Georges, including pertinent history and exam findings with the resident/fellow/medical student/SUPERVISOR IRRIGATION/PA. I have seen and examined the patient and the coffey elements of the encounter have been performed by me. I agree with the assessment, plan and orders as documented by the resident/fellow/medical student/SUPERVISOR IRRIGATION/PA With changes made to the note as [...] procedures. Aniket Padron MD 08/03/2021 3:44 PM [facility] Contin[facility] Nurse Follow Up NAME: [...] cm^3 Wound Healing % 79 Wound Assessment Dusky;[place]/red;Fibrinous Drainage Amount Scant Drainage Description Serosanguinous Odor [...] Coyle MD Pediatric Otolaryngology-Head and Neck Surgery [facility] Otolaryngology group Office ph# [phone] Also available in [place] Images from the original note were not included. [facility] -Progress Note Today's Date and Time: 08/02/2021, [...] placed 07/30/21 per ENT Infection Control Recommendations Remlap Precautions Isolate for Covid until 07-23-21 Antimicrobial [...] through 08-20-21. Patient was transferred back to [facility] on 07-14-21 because of a [...] Friends and Family: Not on file Attends [employer] Services: Not on file Active Member of [...] following labs: CBC with Differential: Recent Labs 08/01/21 0452 08/02/21 0454 WBC 14.0* 12.3* HGB 9.1* 8.0* HCT 27.1* 23.5* PLT 490* 398 LYMPHOPCT 19* 16* MONOPCT 5 8 BMP: Recent Labs 08/01/21 0452 08/02/21 0454 NA 138 137 K 3.2* 3.3* CL [...] are unchanged. Suggest ultrasound correlation. Medical Decision Kgjtzb-Pqwpfioy-Oniin: SARS-CoV-2, Rapid COVID-19, Rapid Collected: 07/13/21 2355 Result status: Final [facility] Reference range: Not Detected [...] this assay. Fact sheet for Healthcare Providers: https://www.fda.gov/media/692488/downl oad Fact sheet for Patients: https://www.fda.gov/media/831443/downl oad Methodology: Isothermal Nucleic Acid Amplification Culture, Respiratory Order: [id number] Status: Final result Visible to patient: No (not released) Next appt: Today at 02:30 PM in Radiology ([facility] MRI RM 1 (1.5T)) Specimen Information: Sputum Aspirated 0 Result Notes Component 07/24/21 9499 Specimen Description .ASPIRATED SPUTUM Direct Exam < 10 EPITHELIAL CELLS/LPF Direct Exam >25 NEUTROPHILS/LPF Direct Exam MANY GRAM NEGATIVE RODS Abnormal Culture KLEBSIELLA AEROGENES HEAVY GROWTH Abnormal Culture NO NORMAL ROB [facility] [place] Susceptibility Klebsiella aerogenes (1) Antibiotic [...] data were reviewed Discussed with nursing Staff, equipment planner Infection Control and Prevention measures reviewed All prior entries were reviewed Administer medications as ordered Prognosis: Very Guarded Discharge planning reviewed Follow up as outpatient. Thank you for allowing us to participate in the care of this patient. Please call with questions. Jany Francis, WEASAND TRIMMER - CATCHER FILTER TIP ATTESTATION: I have discussed the case, including pertinent history and exam findings with the WEASAND TRIMMER. I have evaluated the History, physical findings and pictures of the patient and the coffey elements of the encounter have been performed by me. I have reviewed the laboratory data, other diagnostic studies and discussed them with the WEASAND TRIMMER. I have updated the medical record where necessary. I agree with the assessment, plan and orders as documented by the WEASAND TRIMMER. Seth Stokes MD. Pager: - Office: Critical Care Team - Daily Progress Note Date and time: 08/02/2021 7:50 AM Patient's name: Meg Georges Patient's account/billing number: [id number] Patient's Date of : 1965 Age: 56 [...] yes Ulcer prophylaxis: [] PPI Agent, [x] L4Dymyr, [] Sucralfate, [] Other: Glycemic control: high [...] Date 08/02/21 0000 - 08/02/21 2359 Shift 3293-6618 2136-6053 4146-5256 24 Hour Total INTAKE I.V.(mL/kg) 109.3(1.8) 109.3(1.8) [...] mL/hr at 08/02/21625 sodium chloride propofol Stopped (08/02/21543) fentaNYL 50 mcg/mL Stopped (08/02/21624) dextrose PRN [...] CO2: 32 (%) Position: Semi-Simon's Humidification Source: E Lab Results Component Value Date PHART 7.406 07/06/2021 KHT8HYT 34.8 07/06/2021 PO2ART 279.0 07/06/2021 ABG3RRQ 21.4 07/06/2021 [id number] 99.4 07/06/2021 FIO2 30.0 08/02/2021 Lactic Acid: Lab Results Component Value Date LACTA 1.0 07/13/2021 LACTA 1.6 06/28/2021 DATA: Complete Blood Count: Recent Labs 07/31/2151807/31/2151807/31/21185308/01/2145108/02/21453 WBC 14.0* -- -- 14.0* 12.3* HGB [...] 23.9 06/28/2021 Basal Metabolic Profile: Recent Labs 07/31/2151808/01/2145108/02/21453 NA 140 138 137 K 3.3* 3.2* [...] hours. Last 3 Blood Glucose: Recent Labs 07/31/21 0519 08/01/2145108/02/214 GLUCOSE 209* 212* 247* HgBA1c: Lab Results Component Value Date LABA1C 9.4 06/28/2021 TSH: Lab Results Component Value Date TSH 2.06 07/24/2021 ANEMIA STUDIES No results for input(s): LABIRON, TIBC, FERRITIN, MMHAOSEI55, FOLATE, OCCULTBLD in the last 72 hours. [...] MD Department of Internal Medicine/ Critical care [facility]) 08/02/2021, 7:50 AM Associated attestation - Aniket Padron MD - 08/02/2021 4:40 PM EDT Attending Physician Statement I have discussed the case of Meg Georges, including pertinent history and exam findings with the resident/fellow/medical student/SUPERVISOR IRRIGATION/PA. I have seen and examined the patient and the coffey elements of the encounter have been performed by me. I agree with the assessment, plan and orders as documented by the resident/fellow/medical student/SUPERVISOR IRRIGATION/PA With changes made to the note as [...] Coyle MD Pediatric Otolaryngology-Head and Neck Surgery [facility] Otolaryngology group Office ph# [phone] Also available in [place] Images from the original note were not [...] will continue to follow. Healthcare power of deputy prosecuting attorney placed on patient's chart. OVERNIGHT EVENTS: [...] in the care of Ms. Georges . Electronically signed by Ashwini Perales APRN - SUPERVISOR IRRIGATION Palliative Care Team on 08/01/2021 at 12:07 PM Palliative care number [phone] Please call with any palliative questions or concerns. Palliative Care Team is available via perfect serve or via phone. Images from the original note were not included. [facility] -Progress Note Today's Date and Time: 08/01/2021, [...] placed 07/30/21 per ENT Infection Control Recommendations Remlap Precautions Isolate for Covid until 07-23-21 Antimicrobial [...] cervical spine History of Present Illness: Meg L Bays is a 56 y.o.-year-old female who was [...] through 08-20-21. Patient was transferred back to [facility] on 07-14-21 because of a [...] Friends and Family: Not on file Attends [employer] Services: Not on file Active Member of [...] Labs 07/31/21 0519 07/31/21 0519 07/31/21 1854 08/01/21451 WBC 14.0* -- -- 14.0* HGB 9.5* < > 9.2* 9.1* HCT 27.4* < > 27.4* 27.1* PLT 502* -- -- 490* LYMPHOPCT 21* -- -- 19* MONOPCT 7 -- -- 5 < > = values in this interval not displayed. BMP: Recent Labs 07/31/2151808/01/21451 NA 140 138 K 3.3* 3.2* CL [...] COMPARISON: None. HISTORY: ORDERING SYSTEM PROVIDED HISTORY: jaylon c1/2 laminectomy TECHNOLOGIST PROVIDED HISTORY: sp c1/2 [...] are unchanged. Suggest ultrasound correlation. Medical Decision Iqmbqt-Cdwzgkra-Czccg: SARS-CoV-2, Rapid COVID-19, Rapid Collected: 07/13/21 7568 Result status: Final Resulting lab: [facility] Reference range: Not Detected Value: [...] this assay. Fact sheet for Healthcare Providers: https://www.fda.gov/media/128906/downl oad Fact sheet for Patients: https://www.fda.gov/media/026023/downl oad Methodology: Isothermal Nucleic Acid Amplification Culture, Respiratory Order: [id number] Status: Final result Visible to patient: No (not released) Next appt: Today at 02:30 PM in Radiology ([facility] MRI RM 1 (1.5T)) Specimen Information: Sputum Aspirated 0 Result Notes Component 07/24/21 1481 Specimen Description .ASPIRATED SPUTUM Direct Exam < 10 EPITHELIAL CELLS/LPF Direct Exam >25 NEUTROPHILS/LPF Direct Exam MANY GRAM NEGATIVE RODS Abnormal Culture KLEBSIELLA AEROGENES HEAVY GROWTH Abnormal Culture NO NORMAL ROB Resulting Agency [facility] Susceptibility Klebsiella aerogenes (1) Antibiotic Interpretation Microscan [...] data were reviewed Discussed with nursing Staff, equipment planner Infection Control and Prevention measures reviewed All prior entries were reviewed Administer medications as ordered Prognosis: Very Guarded Discharge planning reviewed Follow up as outpatient. Thank you for allowing us to participate in the care of this patient. Please call with questions. Jany Francis, WEASAND TRIMMER - CATCHER FILTER TIP ATTESTATION: I have discussed the case, including pertinent history and exam findings with the WEASAND TRIMMER. I have evaluated the History, physical findings and pictures of the patient and the coffey elements of the encounter have been performed by me. I have reviewed the laboratory data, other diagnostic studies and discussed them with the WEASAND TRIMMER. I have updated the medical record where necessary. I agree with the assessment, plan and orders as documented by the WEASAND TRIMMER. Seth Stokes MD. Pager: - Office: Critical Care Team - Daily Progress Note Date and time: 08/01/2021 8:07 AM Patient's name: Meg Georges Patient's account/billing number: [id number] Patient's Date of : 1965 Age: 56 [...] yes Ulcer prophylaxis: [] PPI Agent, [x] E5Swajo, [] Sucralfate, [] Other: Glycemic control: medium [...] Date 08/01/21 0000 - 08/01/21 2359 Shift 2829-9715 2539-0442 0234-8566 24 Hour Total INTAKE I.V.(mL/kg) 159.6(2.6) 159.6(2.6) [...] CO2: 32 (%) Position: Semi-Simon's Humidification Source: [facility] Lab Results Component Value Date PHART 7.406 07/06/2021 BHA6TLU 34.8 07/06/2021 PO2ART 279.0 07/06/2021 FPV6QXG 21.4 07/06/2021 T6GYDALO 99.4 07/06/2021 FIO2 30.0 07/30/2021 Lactic Acid: Lab Results Component Value Date LACTA 1.0 07/13/2021 LACTA 1.6 06/28/2021 DATA: Complete Blood Count: Recent Labs 07/30/2142307/30/21 1719 07/31/2151807/31/21 1854 08/01/21451 WBC 14.2* -- 14.0* -- 14.0* HGB [...] 138 K 3.8 3.3* 3.2* BUN 14 15 CREATININE 0.70 0.78 0.72 CL 105 106 105 CO2 Magnesium: Lab Results Component Value Date [...] Glucose: Recent Labs 07/30/21 0424 07/31/21 0519 08/01/21 0452 GLUCOSE 276* 209* 212* HgBA1c: Lab Results Component Value Date LABA1C 9.4 06/28/2021 TSH: Lab Results Component Value Date TSH 2.06 07/24/2021 ANEMIA STUDIES No results for input(s): LABIRON, TIBC, FERRITIN, RDTAAKOX21, FOLATE, OCCULTBLD in the last 72 hours. [...] MD Department of Internal Medicine/ Critical care [facility], [facility]) 08/01/2021, 8:07 AM Associated attestation - Aniket Padron MD - 08/01/2021 7:15 PM EDT Attending Physician Statement I have discussed the case of Meg Georges, including pertinent history and exam findings with the resident/fellow/medical student/SUPERVISOR IRRIGATION/PA. I have seen and examined the patient and the coffey elements of the encounter have been performed by me. I agree with the assessment, plan and orders as documented by the resident/fellow/medical student/SUPERVISOR IRRIGATION/PA With changes made to the note as [...] were not included. [facility] -Progress Note Today's Date and Time: 07/31/2021, [...] placed 07/30/21 per ENT Infection Control Recommendations Remlap Precautions Isolate for Covid until 07-23-21 Antimicrobial [...] through 08-20-21. Patient was transferred back to [facility] on 07-14-21 because of a [...] Friends and Family: Not on file Attends Anglican Services: Not on file Active Member of [...] CBC with Differential: Recent Labs 07/30/21 04207/30/21 04207/30/21 1719 07/31/21 0519 WBC 14.2* -- -- [...] are unchanged. Suggest ultrasound correlation. Medical Decision Dzihnt-Nnxxcpfp-Pmcos: SARS-CoV-2, Rapid COVID-19, Rapid Collected: 07/13/21 3165 Result status: Final Resulting lab: [facility] Reference range: Not Detected Value: [...] this assay. Fact sheet for Healthcare Providers: https://www.fda.gov/media/402611/downl oad Fact sheet for Patients: https://www.fda.gov/media/126334/downl oad Methodology: Isothermal Nucleic Acid Amplification Culture, Respiratory Order: [id number] Status: Final result Visible to patient: No (not released) Next appt: Today at 02:30 PM in Radiology (STV MRI RM 1 (1.5T)) Specimen Information: Sputum Aspirated 0 Result Notes Component 07/24/21 0775 Specimen Description .ASPIRATED SPUTUM Direct Exam < 10 EPITHELIAL CELLS/LPF Direct Exam >25 NEUTROPHILS/LPF Direct Exam MANY GRAM NEGATIVE RODS Abnormal Culture KLEBSIELLA AEROGENES HEAVY GROWTH Abnormal Culture NO NORMAL ROB [facility] Susceptibility Klebsiella aerogenes (1) Antibiotic Interpretation Microscan [...] data were reviewed Discussed with nursing Staff, equipment planner Infection Control and Prevention measures reviewed All prior entries were reviewed Administer medications as ordered Prognosis: Very Guarded Discharge planning reviewed Follow up as outpatient. Thank you for allowing us to participate in the care of this patient. Please call with questions. Jany Francis, WEASAND TRIMMER - CATCHER FILTER TIP ATTESTATION: I have discussed the case, including pertinent history and exam findings with the WEASAND TRIMMER. I have evaluated the History, physical findings and pictures of the patient and the coffey elements of the encounter have been performed by me. I have reviewed the laboratory data, other diagnostic studies and discussed them with the WEASAND TRIMMER. I have updated the medical record where necessary. I agree with the assessment, plan and orders as documented by the WEASAND TRIMMER. Seth Stokes MD. Pager: - Office: Images from the original note were not included. Occupational Therapy [facility] Occupational Therapy Not Seen Note DATE: [...] mg 5 mg Oral Q4H PRN Keri Hatr MD magnesium hydroxide (MILK OF MAGNESIA) 400 [...] 0724 sodium chloride flush 0.9 % inject [facility] [employer] Phone: 07-19-2021 Hospital Discharge instructions Anna Veliz [...] Contact Information Primary Emergency Contact: Hina Thomas [facility] Mobile Relation: Brother/Sister Past Surgical [...] Encephalopathy G93.40 CIDP (chronic inflammatory demyelinating polyneuropathy) ([facility]) G61.81 Sepsis ([facility]) A41.9 Bacteremia R78.81 Hypothyroidism E03.9 Hypokalemia E87.6 Type 2 diabetes mellitus with diabetic polyneuropathy ([facility]) E11.42 Primary hypertension I10 Upper GI bleed K92.2 Non-intractable vomiting R11.10 Unintentional weight loss R63.4 Metabolic encephalopathy G93.41 MSSA (methicillin susceptible Staphylococcus aureus) septicemia ([facility]) A41.01 CRP elevated R79.82 Bandemia D72.825 Allergy to multiple antibiotics Z88.1 Pyogenic inflammation of bone ([facility]) M86.9 Acute intractable headache R51.9 Septic arthritis of cervical spine ([facility]) M46.52 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 G06.1 COVID U07.1 Hypomagnesemia E83.42 Normocytic anemia D64.9 Acute respiratory failure with hypoxemia ([facility]) J96.01 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 Address: [address] [place] [address] Dialysis Facility (if applicable) Name: Address: Dialysis Schedule: Phone: Fax: [employer]/Community Service Technician signature: ICIAN SECTION Prognosis: Fair Condition at [...] the diagnosis listed and that she requires Retirement Facility for less 30 days. Update Admission [...] PCP as outpatient. documented in this encounter [facility] [employer] Phone: 07-14-2021 History of Present illness Narrative Called and spoke with Jess GARVIN and gave report. Lunch tray provided - puree and thickened liquids. Pt sitting up and eating at this time. Denies further needs. Called and updated sister, Hina with status. Pt accepted to [facility] pending. documented in this encounter [facility] [employer] Phone: 07-10-2021 History of Present illness Narrative [...] Urology Speech Language Pathology Speech Language Pathology [facility] Cognitive/Dysphagia Treatment Note Date: 07/10/2021 Patient s Name: Meg Georges Patient Active Problem List Diagnosis Code Cellulitis of left finger L03.012 Altered mental state R41.82 Encephalitis G04.90 Encephalopathy G93.40 CIDP (chronic inflammatory demyelinating polyneuropathy) ([facility]) G61.81 Sepsis ([facility]) A41.9 Bacteremia R78.81 Hypothyroidism E03.9 Hypokalemia E87.6 Type 2 diabetes mellitus with diabetic polyneuropathy ([facility]) E11.42 Primary hypertension I10 Upper GI bleed K92.2 Non-intractable vomiting R11.10 Unintentional weight loss R63.4 Acute metabolic encephalopathy G93.41 MSSA (methicillin susceptible Staphylococcus aureus) septicemia ([facility]) A41.01 CRP elevated R79.82 Bandemia D72.825 Allergy to multiple antibiotics Z88.1 Pyogenic inflammation of bone ([facility]) M86.9 Acute intractable headache R51.9 Acute osteomyelitis of cervical spine ([facility]) M46.22 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 G06.1 Pain: 0/10 Cognitive Treatment Treatment time: 7410-7711 Subjective: [] Alert [x] Cooperative [] Confused [...] recommended at discharge. Completed by Chaitanya Pratt Eligibility Technician Clinician Co-signed byHina Sawyer M.S. CCC/COMPLIANCE REPRESENTATIVE Images from the original note were not included. [facility] Internal Medicine Teaching Residency Program Inpatient Daily Progress Note __ Patient: Meg Georges Date of : 1965 Acct: [id number] Room: [facility]/0146-01 Admit date: 06/28/2021 Today's date: 07/10/21 Number [...] neuropathy follows neurology. Presented to ED from jail, found confused outside. Imaging negative. She complains [...] PLAN Assessment and Plan: Principal Problem: Sepsis ([facility]) Active Problems: Altered mental state Encephalitis Encephalopathy CIDP (chronic inflammatory demyelinating polyneuropathy) ([facility]) Bacteremia Hypothyroidism Hypokalemia Type 2 diabetes mellitus with diabetic polyneuropathy ([facility]) Primary hypertension Upper GI bleed Non-intractable vomiting Unintentional weight loss Acute metabolic encephalopathy MSSA (methicillin susceptible Staphylococcus aureus) septicemia ([facility]) CRP elevated Bandemia Allergy to multiple antibiotics [...] antihypertensives. Elevated troponins: Downtrended likely type II W[place] Hypokalemia: Repeat potassium level and replace if needed Left Vocal cord paralysis: Ongoing x 1 month. ENT on board. Plan for injection laryngoplasty for voice/swallowing improvement at some point. Passed swallow study. Diet: Easy to chew DVT ppx : Lovenox held GI ppx: None PT/OT/SW: Consulted Discharge Planning: In process Rufus Argueta MD Internal Medicine Resident, PGY- 1 [facility]; [place], [place] 07/10/2021, 7:18 AM Associated attestation - Silver Carmoan MD - 07/10/2021 11:42 AM EDT Images [...] were not included. [facility] - Infectious diseases evaluation admission date 06/28/2021 [...] neck extention BC repeat re neg since . Nafcillin 2 g q 4 - 6 [...] line due to nafciline Infection Control Recommendations Remlap Precautions Contact Isolation Antimicrobial Stewardship Recommendations Simplification of therapy Targeted therapy History of Present Illness: Initial history: Meg Georges is a 56 y.o.-year-old female presented to the ED for altered mental status. Patient is currently admitted under neurology service. Patient presented from a jail after an episode of confusion overnight where she was found wandering outside her jail. She had CT head done at outside facility which did not show any acute changes, telestroke was consulted for the concern of confusion, they recommended transfer to [facility] for MRI of the brain. BC SA MSSA and LP neg CRP elevated and WBc up - creat normal 06/29 mentally recovered Neck pain x 1 mo Left sole [place] She gets her IvIg through a periph [...] WBC-15 - 10 Micro: 06/29 -07/01 - 5 18 Blood Culture MSSA 06/29 LP -WBC [...] Friends and Family: Not on file Attends Anglican Services: Not on file Active Member of [...] Crowe MD Office: Perfect serve / office [phone] Neurosurgery NATE/Resident Daily Progress Note Chief Complaint [...] 120 (H) 06/28/2021 Culture, Anaerobic and Aerobic [[id number]] Collected: 07/06/212140 Updated: 07/09/21 0731 Specimen Type: Swab Specimen Source: Spine Specimen [...] Neurosurgeon Speech Language Pathology Speech Language Pathology [facility] Cognitive Treatment Note Date: 07/09/2021 Patient s Name: Meg Georges Diagnosis: Patient Active Problem List Diagnosis Code Cellulitis of left finger L03.012 Altered mental state R41.82 Encephalitis G04.90 Encephalopathy G93.40 CIDP (chronic inflammatory demyelinating polyneuropathy) ([facility]) G61.81 Sepsis ([facility]) A41.9 Bacteremia R78.81 Hypothyroidism E03.9 Hypokalemia E87.6 Type 2 diabetes mellitus with diabetic polyneuropathy ([facility]) E11.42 Primary hypertension I10 Upper GI bleed K92.2 Non-intractable vomiting R11.10 Unintentional weight loss R63.4 Acute metabolic encephalopathy G93.41 MSSA (methicillin susceptible Staphylococcus aureus) septicemia ([facility]) A41.01 CRP elevated R79.82 Bandemia D72.825 Allergy to multiple antibiotics Z88.1 Pyogenic inflammation of bone ([facility]) M86.9 Acute intractable headache R51.9 Acute osteomyelitis of cervical spine ([facility]) M46.22 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 G06.1 Pain: 8/10 Cognitive Treatment Treatment time: 5564-3871 Subjective: [x] Alert [x] Cooperative [] Confused [] Agitated [] Lethargic Objective/Assessment: Recall: Delayed recall; 1/4 increased to 2/4 with min verbal cue, 1/4 increased to 3/4 with min verbal cues Word list retention: Word placement; 3/11 increased to 9/11 with repetitions Functional memory: Paragraph facts; 3/14 increased to 8/14 with repetitions and min verbal cue Problem Solving/Reasoning: Category members: [place]; 2/8 increased to 4/8 with min-mod verbal cues, 9/10 increased to 10/10 with min verbal cue Other: Pt. Seen for O/M treatment program for dysphagia. Pt. Completed O/M exercises X 5-10 X 1 set with min-mod verbal cues. Education provided re: compensatory strategies to increase swallowing . Pt. Verbalized understanding. Exercise program left at bedside. Pt demonstrated difficulties with tongue protrusion. Plan: [x] Continue ST services [] Discharge from ST: Discharge recommendations: [] Further therapy recommended at discharge.The patient should be able to tolerate at least 3 hours of therapy per day over 5 days or 15 hours over 7 days. [x] Further therapy recommended at discharge. [] No therapy recommended at discharge. Completed by Chaitanya Pratt Eligibility Technician Clinician Co-signed by iHna Sawyer M.S. CCC/COMPLIANCE REPRESENTATIVE Physical Therapy Facility/Department: [address] [place] [address] Daily Treatment Note Name: [...] progress notes indicate needs to mobilize . [place] thick liquids. Documentation of vocal cord paralysis. [...] 1011) AM-PAC Inpatient T-Scale Score : 38.1 (07/09/211010) Mobility Inpatient CMS 0-100% Score: 61.29 (07/09/21 1011) Mobility Inpatient CMS G-Code Modifier : CL (07/09/211010) Goals Short Term Goals Time Frame for [...] from the original note were not included. [facility] Internal Medicine Teaching Residency Program Inpatient Daily Progress Note __ Patient: Meg Georges Date of : 1965 Acct: [id number] Room: [facility]/0146-01 Admit date: 06/28/2021 Today's date: 07/09/21 Number [...] neuropathy follows neurology. Presented to ED from jail, found confused outside. Imaging negative. She complains of headache 10/, not sure how she got to ED. [...] this interval not displayed. BMP: Recent Labs 07/07/2134807/08/21 0607/09/21 0532 NA 140 138 140 K 3.9 [...] PLAN Assessment and Plan: Principal Problem: Sepsis ([facility]) Active Problems: Altered mental state Encephalitis Encephalopathy CIDP (chronic inflammatory demyelinating polyneuropathy) ([facility]) Bacteremia Hypothyroidism Hypokalemia Type 2 diabetes mellitus with diabetic polyneuropathy ([facility]) Primary hypertension Upper GI bleed Non-intractable vomiting Unintentional weight loss Acute metabolic encephalopathy MSSA (methicillin susceptible Staphylococcus aureus) septicemia ([facility]) CRP elevated Bandemia Allergy to multiple antibiotics Pyogenic inflammation of bone ([facility]) Acute intractable headache Acute osteomyelitis of cervical spine ([facility]) 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 [...] antihypertensives. Elevated troponins: Downtrended likely type II WV Hypokalemia: Repeat potassium level and replace if needed Left Vocal cord paralysis: Ongoing x 1 month. ENT on board. Plan for injection laryngoplasty for voice/swallowing improvement at some point. Passed swallow study. Diet: Easy to chew DVT ppx : Lovenox held GI ppx: None PT/OT/SW: Consulted Discharge Planning: In process Clark Iglesias MD Internal Medicine Resident, PGY-1 [facility]; [place], [place] 7:13 AM 07/09/2021 Please note that part of this chart was generated using voice recognition dictation software. 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 Associated attestation - Johnny [...] 120 (H) 06/28/2021 Culture, Anaerobic and Aerobic [[id number]] Collected: 07/06/212140 Updated: 07/08/21820 Specimen Type: Swab [...] in patients neurologic status. Kam Loera CNP 07/08/21 11:09 AM Associated attestation - Jose [...] infection Jose Alfredo Patiño DO Neurosurgery O: [phone] C: [phone] Physical Therapy Facility/Department: [address] [place] Physical Therapy Reassessment Name: [...] progress notes indicate needs to mobilize . [place] thick liquids. Documentation of vocal cord paralysis. Dx CIDP (demyelinating disease). Bilateral foot drop. Subjective General Chart Reviewed: Yes Patient assessed for rehabilitation services?: Yes Family / Caregiver Present: No Follows Commands: Within Functional Limits Subjective Subjective: Pain improved. She says it was less than she thought it would be. 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 Crime Prevention Police Officer rubbed some lotion on the area and [...] actively, heel slides, assisted SLR. AM-PAC Score [facility] Inpatient Mobility Raw Score : 14 (07/08/21915) AM-PAC Inpatient T-Scale Score : 38.1 (07/08/21915) Mobility Inpatient CMS 0-100% Score: 61.29 (07/08/21915) Mobility Inpatient [facility] G-Code Modifier : CL (07/08/21915) Goals [...] Time Individual Concurrent Group Co-treatment Time In 844 Time Out 09 Minutes 40 Timed Code Treatment Minutes: 30 Minutes Edel Chapman PT Images from the original note were not included. [facility] Internal Medicine Teaching Residency Program Inpatient Daily Progress Note __ Patient: Meg Georges Date of : 1965 Acct: [id number] Room: [address] [place] [address] Admit date: 06/28/2021 Today's date: 07/08/21 Number [...] neuropathy follows neurology. Presented to ED from jail, found confused outside. Imaging negative. She complains [...] PRN Diagnostic Labs: CBC: Recent Labs 07/06/2175107/06/21 1641 07/06/21192107/07/21 0349 07/08/21 0617 WBC 7.7 -- -- 11.1 11.4* [...] Results Component Value Date/Time CULTURE NO GROWTH HOURS 07/07/2021 07:57 AM Imaging: MRI CERVICAL [...] Encephalitis Encephalopathy CIDP (chronic inflammatory demyelinating polyneuropathy) ([facility]) Bacteremia Hypothyroidism Hypokalemia Type 2 diabetes mellitus with diabetic polyneuropathy ([facility]) Primary hypertension Upper GI bleed Non-intractable vomiting [...] antihypertensives. Elevated troponins: Downtrended likely type II WV Hypokalemia: Repeat potassium level and replace if needed Left Vocal cord paralysis: Ongoing x 1 month. ENT on board. Plan for injection laryngoplasty for voice/swallowing improvement at some point. Passed swallow study. Diet: Easy to chew DVT ppx : Lovenox held GI ppx: None PT/OT/SW: Consulted Discharge Planning: In process Clark Iglesias MD Internal Medicine Resident, PGY-1 [facility]; [place], [place] 7:24 AM 07/08/2021 Please note that part of this chart was generated using voice recognition dictation software. 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 Associated attestation - Johnny [...] were not included. [facility] - Infectious diseases evaluation admission date 06/28/2021 [...] the rise despite tx Infection Control Recommendations Remlap Precautions Contact Isolation Antimicrobial Stewardship Recommendations Simplification of therapy Targeted therapy History of Present Illness: Initial history: Meg Georges is a 56 y.o.-year-old female presented to the ED for altered mental status. Patient is currently admitted under neurology service. Patient presented from a jail after an episode of confusion overnight where she was found wandering outside her jail. She had CT head done at outside facility which did not show any acute changes, telestroke was consulted for the concern of confusion, they recommended transfer to [facility] for MRI of the brain. BC SA MSSA and LP neg CRP elevated and WBc up - creat normal 06/29 mentally recovered Neck pain x 1 mo Left sole callus [place] She gets her IvIg through a periph [...] Friends and Family: Not on file Attends Anglican Services: Not on file Active Member of [...] following labs: CBC with Differential: Recent Labs 07/06/21 0752 07/06/21 1641 07/06/21 1922 07/07/21 0349 WBC 7.7 -- -- 11.1 HGB 8.5* < > 9.9* 9.2* HCT 27.5* < > 30.6* 27.9* PLT 378 -- -- 372 LYMPHOPCT 20* -- -- 7* MONOPCT 6 -- -- 5 < > = values in this interval not displayed. BMP: Recent Labs 07/05/21 0517 07/05/21 1058 07/06/21 0752 07/06/21 1641 07/06/21 1922 07/07/21 0349 NA 138 -- 133* < > [...] Crowe MD Office: Perfect serve / office [phone] Neurology Nurse Practitioner Progress Note INTERVAL HISTORY: [...] who was admitted as a transfer from [facility] ED on 06/28/2021 for AMS. As per medical records, patient was found wandering outside her jail. She was taken to [facility] ED with acute lethargy and confusion. Patient received Narcan with no improvement. Patient was evaluated by Dr. Helton through telestroke; NIH score was 1. CT head-motion degraded but no obvious acute stroke. Patient was transferred to [facility] for further evaluation. She was initially admitted [...] TSH 0.15 (L) 06/28/2021 INR 1.2 06/28/2021 [id number] 06/28/2016 LABA1C 9.4 (H) 06/28/2021 LABMICR [...] to ensure the accuracy of this automated shipwright supervisor, some errors in shipwright supervisor may have occurred. Neurosurgery NATE/Resident Daily Progress [...] 120 (H) 06/28/2021 Culture, Anaerobic and Aerobic [[id number]] Collected: 07/06/212140 Updated: 07/06/21 2332 Specimen Type: Swab Specimen Source: Spine Specimen [...] Therapies Jose Alfredo Patiño DO Neurosurgery O: [phone] C: [phone] Images from the original note were not included. [facility] Internal Medicine Teaching Residency Program Inpatient Daily Progress Note __ Patient: Meg Georges Date of : 1965 Acct: [id number] Room: 0146/0146-01 Admit date: 06/28/2021 Today's date: [...] neuropathy follows neurology. Presented to ED from jail, found confused outside. Imaging negative. She complains [...] mL, PRN tiZANidine, 2 mg, Q8H PRN nckhiovbrb-srdttxrarvrqr-kyhpbfux, 1 tablet, Q4H PRN hydrALAZINE, 10 mg, [...] antihypertensives. Elevated troponins: Downtrended likely type II WV Hypokalemia: K+ 3.9 today. Repeat potassium level and replace if needed Left Vocal cord paralysis: Ongoing x 1 month. ENT on board. Plan for injection laryngoplasty for voice/swallowing improvement at some point. Passed swallow study. Rufus Argueta MD Internal Medicine Resident, PGY- 1 [facility]; [place], [place] 07/07/2021, 7:16 AM Associated attestation - [...] original note were not included. Occupational Therapy [facility] Occupational Therapy Not Seen Note DATE: 07/06/2021 NAME: Meg Georges : 1965 Patient not seen this date for Occupational Therapy due to: Surgery/Procedure: POSTERIOR CERVICAL C1-2 LAMINECTOMY Next Scheduled Treatment: 07/07 Speech Language Pathology Speech Language Pathology [facility] Cognitive/Dysphagia Treatment Note Date: 07/06/2021 Patient s Name: Meg Georges Diagnosis: Patient Active Problem List Diagnosis Code Cellulitis of left finger L03.012 Altered mental state R41.82 Encephalitis G04.90 Encephalopathy G93.40 CIDP (chronic inflammatory demyelinating polyneuropathy) ([facility]) G61.81 Sepsis ([facility]) A41.9 Bacteremia R78.81 Hypothyroidism E03.9 Hypokalemia E87.6 Type 2 diabetes mellitus with diabetic polyneuropathy ([facility]) E11.42 Primary hypertension I10 Upper GI bleed K92.2 Non-intractable vomiting R11.10 Unintentional weight loss R63.4 Acute metabolic encephalopathy G93.41 MSSA (methicillin susceptible Staphylococcus aureus) septicemia ([facility]) A41.01 Elevated C-reactive protein (CRP) R79.82 Bandemia D72.825 Allergy to multiple antibiotics Z88.1 Pyogenic inflammation of bone ([facility]) M86.9 Acute intractable headache R51.9 Pain: 0/10 Cognitive Treatment Treatment time: 935-1013 Subjective: [x] Alert [x] Cooperative [] Confused [] Agitated [] Lethargic Objective/Assessment: Recall: Delayed recall; 1/4 increased to 4/4 with min-max verbal cues, 1/4 increased to 4/4 with min verbal cues Word list retention: Recall by attribute; 10/29 increased to 01/28 with repetitions Problem Solving/Reasoning: Word deduction; 11/28 increased to 01/28 with min verbal cues Category members: [place]; 8/10 increased to 10/10 with min verbal cues Wrong category: [place]; 5/10 increased to 10/10 with repetitions and [...] recommended at discharge. Completed by Chaitanya Pratt Eligibility Technician Clinician Co-signed by Robbie Mckeon M.A.CCC/COMPLIANCE REPRESENTATIVE Images from the original note were not included. [facility] - Infectious diseases evaluation admission date 06/28/2021 [...] the rise despite tx Infection Control Recommendations Remlap Precautions Contact Isolation Antimicrobial Stewardship Recommendations Simplification of therapy Targeted therapy History of Present Illness: Initial history: eMg Georges is a 56 y.o.-year-old female presented to the ED for altered mental status. Patient is currently admitted under neurology service. Patient presented from a jail after an episode of confusion overnight where she was found wandering outside her jail. She had CT head done at outside facility which did not show any acute changes, telestroke was consulted for the concern of confusion, they recommended transfer to [facility] for MRI of the brain. BC SA MSSA and LP neg CRP elevated and WBc up - creat normal 06/29 mentally recovered Neck pain x 1 mo Left [place] She gets her IvIg through a periph [...] procalcitonin 0.66, WBC-15 - 10 Micro: 06/29 -5/15 - 5 18 Blood Culture MSSA 06/29 LP -WBC [...] Friends and Family: Not on file Attends Anglican Services: Not on file Active Member of [...] following labs: CBC with Differential: Recent Labs 07/05/2151607/05/21 0507/06/21 07507/06/21 07507/06/21 16407/06/21 192 WBC 10.0 -- 7.7 -- -- -- HGB 7.9* < > 8.5* < > 6.7* 9.9* HCT 24.6* < > 27.5* < > 21.0* 30.6* PLT 341 -- 378 -- -- -- LYMPHOPCT 26 -- 20* -- -- -- MONOPCT 4 -- 6 -- -- -- < > = values in this interval not displayed. BMP: Recent Labs 07/05/2151607/05/21 1058 07/06/21 07507/06/21 16407/06/21 192 NA 138 -- 133* 140 140 K [...] Crowe MD Office: Perfect serve / office [phone] [facility] Neurology IN-PATIENT SERVICE [facility] Progress Note Date: 07/06/2021 Patient name: Meg Georges Date of admission: 06/28/2021 11:59 AM Account: [id number] Date of : 1965 PCP: Neri Santa Sr, DO Room: [address] [place] [address] Code Status: Full Code Chief Complaint: Chief [...] She was found wandering outside of her jail. She was admitted to the medicine team and was found to have sepsis as well as a GI bleed. Neurology was consulted due to altered mentation and headache. CT head was done and was unremarkable. CTA head neck unremarkable. EEG was normal. Spinal tap was done in the ED with CSF studies negative for meningitis or 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 infection. For her headache she was placed [...] 07/05/21 0818 07/05/21 1136 07/05/21 1554 07/05/21 195 POCGLU 147* 134* 185* 102 Intake/Output Summary [...] [Z88.1] Priority: Medium Pyogenic inflammation of bone (HCC) [M86.9] Priority: Medium Acute intractable headache [R51.9] Priority: Medium Acute metabolic encephalopathy [G93.41] 06/30/2021 Priority: Medium MSSA (methicillin susceptible Staphylococcus aureus) septicemia (HCC) [A41.01] 06/30/2021 Priority: Medium Upper GI bleed [K92.2] Priority: Medium Non-intractable vomiting [R11.10] Priority: Medium Unintentional weight loss [R63.4] Priority: Medium Sepsis (HCC) [A41.9] 06/29/2021 Priority: Medium Bacteremia [R78.81] 06/29/2021 [...] On nafcillin -CSF studies are negative for 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 infection. -Continue Depakene 250mg BID for headache. [...] drainage of abscess. We will follow. Pawan DO Marija 07/06/2021 4:50 PM Images from the original note were not included. [facility] Internal Medicine Teaching Residency Program Inpatient Daily Progress Note __ Patient: Meg Georges Date of : 1965 Acct: [id number] Room: 0146/0146-01 Admit date: 06/28/2021 Today's date: [...] neuropathy follows neurology. Presented to ED from jail, found confused outside. Imaging negative. She complains [...] Continuous Infusions: sodium chloride 75 mL/hr at 07/05/21 193 dextrose PRN Medicationsmorphine, 1 mg, Q4H PRN potassium chloride, 40 mEq, PRN Or potassium alternative oral replacement, 40 mEq, PRN Or potassium chloride, 10 mEq, PRN sodium chloride flush, 10 mL, PRN sodium chloride flush, 10 mL, PRN loperamide, 2 mg, 4x Daily PRN sodium chloride flush, 10 mL, PRN tiZANidine, 2 mg, Q8H PRN edlmfqgvud-hollfkhyeyknu-cqwwowvz, 1 tablet, Q4H PRN hydrALAZINE, 10 mg, [...] antihypertensives. Elevated troponins: Downtrended likely type II WV Hypokalemia: K+ 3.2 today. Likely due to diarrhea. Repeat potassium level and replace if needed Left Vocal cord paralysis: Ongoing x 1 month. ENT on board. Plan for injection laryngoplasty for voice/swallowing improvement at some point. Passed swallow study. Rufus Argueta MD Internal Medicine Resident, PGY- 1 [facility]; [place], [place] 07/06/2021, 7:41 AM Associated attestation - [...] Chew diet with mildly thick liquids per COMPLIANCE REPRESENTATIVE 2. Send Magic Cup ONS with meals Nutrition Assessment: Pt made NPO for MBSS d/t concern for aspiration. COMPLIANCE REPRESENTATIVE recommending easy to chew and mildly thick [...] ADULT DIET; Easy to Chew; Mildly Thick ([place]) Anthropometric Measures: Height: 5' 5 (165.1 cm) [place] Body Weight (IBW): 125 lbs (57 kg) Current Body Weight: 145 lb (65.8 kg), 116 % IBW. Weight Source: Stated Current BMI (kg/m2): 24.1 BMI Categories: Normal Weight (BMI 18.5-24.9) Estimated Daily Nutrient Needs: Energy Requirements Based On: Kcal/kg Weight Used for Energy Requirements: Current Energy (kcal/day): 2232-5340 kcals/day Weight Used for Protein Requirements: Current [...] determine Mary Acosta MS, RD, LD Contact: [phone] Images from the original note were not included. [facility] - Infectious diseases evaluation admission date 06/28/2021 [...] the rise despite tx Infection Control Recommendations Remlap Precautions Contact Isolation Antimicrobial Stewardship Recommendations Simplification of therapy Targeted therapy History of Present Illness: Initial history: Meg Georges is a 56 y.o.-year-old female presented to the ED for altered mental status. Patient is currently admitted under neurology service. Patient presented from a jail after an episode of confusion overnight where she was found wandering outside her jail. She had CT head done at outside facility which did not show any acute changes, telestroke was consulted for the concern of confusion, they recommended transfer to [facility] for MRI of the brain. BC SA MSSA and LP neg CRP elevated and WBc up - creat normal 06/29 mentally recovered Neck pain x 1 mo Left sole callus [place] She gets her IvIg through a periph [...] WBC-15 - 10 Micro: 06/29 -07/01 - 5 18 Blood Culture MSSA 06/29 LP -WBC [...] Friends and Family: Not on file Attends Anglican Services: Not on file Active Member of [...] following labs: CBC with Differential: Recent Labs 07/04/2131507/05/21516 WBC 10.4 10.0 HGB 7.4* 7.9* HCT 22.8* 24.6* PLT 231 341 LYMPHOPCT 22* 26 MONOPCT 5 4 BMP: Recent Labs 07/04/2131507/04/2131507/05/2151607/05/21 1058 NA 138 -- 138 -- K [...] Negrete MD Office: Perfect serve / office [phone] I have discussed the care of the [...] from the original note were not included. [facility] Internal Medicine Teaching Residency Program Inpatient Daily Progress Note __ Patient: Meg Georges Date of : 1965 Acct: [id number] Room: 0146/0146-01 Admit date: 06/28/2021 Today's date: 07/05/21 Number [...] neuropathy follows neurology. Presented to ED from jail, found confused outside. Imaging negative. She complains [...] mL, PRN tiZANidine, 2 mg, Q8H PRN xjpihnycxc-cwirzetmoyyxz-boknnklq, 1 tablet, Q4H PRN hydrALAZINE, 10 mg, [...] mL/hr, PRN Diagnostic Labs: CBC: Recent Labs 07/03/2143807/03/2143807/03/21163607/04/2131507/05/21516 WBC 13.6* -- -- 10.4 10.0 RBC 3.22* -- -- 2.79* 2.98* HGB 8.4* < > 7.8* 7.4* 7.9* HCT 26.1* < > 24.2* 22.8* 24.6* MCV 81.1* -- -- 81.7* 82.6 RDW 16.5* -- -- 16.9* 17.5* PLT 261 -- -- 231 341 < > = values in this interval not displayed. BMP: Recent Labs 07/03/2143807/03/2143807/03/21163607/04/2131507/05/21 05 NA 134* -- -- 138 138 K [...] controlled Elevated troponins: Downtrended likely type II WV -echo done Hypokalemia: K+ 3.1 today. On daily 40 replacement. Repeat potassium level and replace if needed Left Vocal cord paralysis: Ongoing x 1 month. ENT on board. Plan for injection laryngoplasty for voice/swallowing improvement at some point. Passed swallow study. Tami Vega MD Internal Medicine Resident, PGY- 2 [facility]; [place], [place] 07/05/2021, 10:37 AM Associated attestation - [...] She was found wandering outside of her jail. She was admitted to the medicine team and was found to have sepsis as well as a GI bleed. Neurology was consulted due to altered mentation and headache. CT head was done and was unremarkable. CTA head neck unremarkable. EEG was normal. Spinal tap was done in the ED with CSF studies negative for meningitis or 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 infection. For her headache she was placed [...] tested Data: Lab Results: CBC: Recent Labs 07/03/2143807/03/2143807/03/21163607/04/2131507/05/21516 WBC 13.6* -- -- 10.4 10.0 HGB 8.4* < > 7.8* 7.4* 7.9* PLT 261 -- -- 231 341 < > = values in this interval not displayed. BMP: Recent Labs 07/03/2143807/03/2143807/03/21163607/04/2131507/05/21 05 NA 134* -- -- 138 138 K [...] LABA1C 9.4 (H) 06/28/2021 LABMICR 7 06/25/2013 [id number] 374 06/28/2016 Diagnostic data reviewed: CT HEAD [...] of CIDP -CSF studies are negative for 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 infection -Continue Depakene 250mg BID for headache [...] to ensure the accuracy of this automated shipwright supervisor, some errors in shipwright supervisor may have occurred. Neurosurgery NATE/Resident Daily Progress [...] 114/62 Pulse: 85 84 85 80 Resp: Temp: 98 F (36.7 C) 97.8 F [...] X.Vaishali Crump DO Neurosurgeon Occupational Therapy Facility/Department: [address] Occupational Therapy Initial Assessment [...] Rolling ADL Assistive Devices: Long-handled Sponge;Long-handled Shoe Horn;Corduroy Brusher Operator;Sock-Aid Hard Patient Diagnosis(es): The primary encounter diagnosis [...] using RW since she has been at [facility], prior to she was not using AD) [...] Ambulation Assistance: Independent Transfer Assistance: Independent Active Plant Science Professor: Yes Mode of Transportation: Car 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: [employer] Leisure & Hobbies: shopping Additional Comments: Support from alevism friends, but unsure if she would have [...] Hand Dominance Hand Dominance: Right AM-PAC Score AM-PAC Inpatient Daily Activity Raw Score: 19 (07/04/21 163) AM-PAC Inpatient ADL T-Scale Score : 40.22 (07/04/21 163) ADL Inpatient [facility] 0-100% Score: 42.8 (07/04/21 163) ADL Inpatient [facility] G-Code Modifier : CK (07/04/211629) Goals Short Term Goals Time Frame for [...] 33 Minutes PAIGE Moreira Physical Therapy Facility/Department: [address] [place] Physical Therapy Initial Assessment [...] (pt retired in restroom with OT upon entry writer's exit) Restraints Restraints Initially in Place: [...] this time and ok for therapy via [employer] Subjective General Patient assessed for rehabilitation services?: [...] Ambulation Assistance: Independent Transfer Assistance: Independent Active Plant Science Professor: Yes Mode of Transportation: Car 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: [employer] Leisure & Hobbies: shopping Additional Comments: Support from alevism friends, but unsure if she would have [...] Not formally assessed due to c-spine precautions; inside channel account manager strength WFL Strength LUE Strength LUE: Exception Comment: Not formally assessed due to c-spine precautions; inside channel account manager strength WFL Bed mobility Supine to Sit: Contact guard assistance Sit to Supine: (Did not formally assess- pt retired in restroom upon entry writer's exit) Bed Mobility Comments: Increased time [...] requiring Alejandra donning/ doffing from assistance from entry writer. More Ambulation?: No Stairs/Curb Stairs?: No [...] PT Speech Language Pathology Speech Language Pathology [facility] Cognitive Treatment Note Date: 07/04/2021 Patient s Name: Meg Georges Diagnosis: Patient Active Problem List Diagnosis Code Cellulitis of left finger L03.012 Altered mental state R41.82 Encephalitis G04.90 Encephalopathy G93.40 CIDP (chronic inflammatory demyelinating polyneuropathy) ([facility]) G61.81 Sepsis ([facility]) A41.9 Bacteremia R78.81 Hypothyroidism E03.9 Hypokalemia E87.6 Type 2 diabetes mellitus with diabetic polyneuropathy ([facility]) E11.42 Primary hypertension I10 Upper GI bleed K92.2 Non-intractable vomiting R11.10 Unintentional weight loss R63.4 Acute metabolic encephalopathy G93.41 MSSA (methicillin susceptible Staphylococcus aureus) septicemia ([facility]) A41.01 Elevated C-reactive protein (CRP) R79.82 Bandemia D72.825 Allergy to multiple antibiotics Z88.1 Pyogenic inflammation of bone ([facility]) M86.9 Acute intractable headache R51.9 Pain: 10/10 [...] recommended at discharge. Treatment completed by:Chaitanya Pratt Eligibility Technician ROBBIE MCKEON COMPLIANCE REPRESENTATIVE, M[facility]. [facility]-COMPLIANCE REPRESENTATIVE Patient's operative note found from care everywhere from Dr.Gloria Elena Washington MD 02/22/2010 from [facility]. Implant is Baerveldt 250 tube shunt, on the left for open angle glaucoma. This is MRI compatible. MRI department will confirm this. Speech Language Pathology [facility] Speech Language Pathology Date: 07/04/2021 Patient Name: Meg Georges Date of : 1965 AGE: 56 y.o. Patient Not Available for Speech Therapy Due to: [] Testing [] Hemodialysis [] Cancelled by RN [] Surgery [] Intubation/Sedation/Pain Medication [] Medical instability [x] Other: Pt in pain. Asked ST to return later Next scheduled treatment: 518 in PM if able, 07/05 Completed by:Chaitanya Pratt Eligibility Technician ROBBIE MCKEON COMPLIANCE REPRESENTATIVE, [facility]. [facility]-COMPLIANCE REPRESENTATIVE ENT/OTOLARYNGOLOGY PROGRESS NOTE REASON FOR CARE: AMS, [...] 148/67 Pulse: 71 84 83 85 Resp: 27 17 Temp: 98.2 F (36.8 C) 97.8 F [...] Dr. Chilo Mccoy and Dr. Angel Krueger [address] [facility] [address] OPTION 2: [facility] [address] [place] [address] Appointment scheduling: Other Useful Numbers: [facility] ENT Nurse triage line [phone] (ENT-related questions or concerns, 8am-4pm, Friday through Friday) Gutierrez Sloan MD Pediatric Otolaryngology-Head and Neck Surgery [facility] Otolaryngology group Office ph# [phone] Also available in [place] Images from the original note were not included. [facility] - Infectious diseases evaluation admission date 06/28/2021 [...] patient, RN, Dr. Robledo. Infection Control Recommendations Remlap Precautions Contact Isolation Antimicrobial Stewardship Recommendations Simplification of therapy Targeted therapy History of Present Illness: Initial history: Meg Georges is a 56 y.o.-year-old female presented to the ED for altered mental status. Patient is currently admitted under neurology service. Patient presented from a jail after an episode of confusion overnight where she was found wandering outside her jail. She had CT head done at outside facility which did not show any acute changes, telestroke was consulted for the concern of confusion, they recommended transfer to [facility] for MRI of the brain. BC SA MSSA and LP neg CRP elevated and WBc up - creat normal 06/29 mentally recovered Neck pain x 1 mo Left sole call[place] She gets her IvIg through a periph [...] Friends and Family: Not on file Attends Anglican Services: Not on file Active Member of [...] following labs: CBC with Differential: Recent Labs 07/03/2143807/03/2143807/03/21163607/04/21315 WBC 13.6* -- -- 10.4 HGB 8.4* < > 7.8* 7.4* HCT 26.1* < > 24.2* 22.8* PLT 261 -- -- 231 LYMPHOPCT 18* -- -- 22* MONOPCT 5 -- -- 5 < > = values in this interval not displayed. BMP: Recent Labs 07/03/2143807/03/2143807/03/21163607/04/21315 NA 134* -- -- 138 K 2.9* [...] Orellana CNP Office: Perfect serve / office [phone] \ Images from the original note were [...] She was found wandering outside of her jail. She was admitted to the medicine team and was found to have sepsis as well as a GI bleed. Neurology was consulted due to altered mentation and headache. CT head was done and was unremarkable. CTA head neck unremarkable. EEG was normal. Spinal tap was done in the ED with CSF studies negative for meningitis or 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 infection. For her headache she was placed [...] tested Data: Lab Results: CBC: Recent Labs 07/02/21 0419 07/02/21 1508 [...] LABA1C 9.4 (H) 06/28/2021 LABMICR 7 06/25/2013 [id number] 374 06/28/2016 Diagnostic data reviewed: CT HEAD [...] IVIG sooner -CSF studies are negative for 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 infection -Continue Depakene 250mg BID for headache -GI is following, patient is s/p EGD with findings suggestive of Alan esophagitis -ID is following; patient remains on antibiotics -Neurosurgery is following; possible myelogram -PT/OT -We will follow Please note that this note was generated using a voice recognition dictation software. 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 Images from the original note were not included. [facility] Internal Medicine Teaching Residency Program Inpatient Daily Progress Note __ Patient: Meg Georges Date of : 1965 Acct: [id number] Room: [address] [place] [address] Admit date: 06/28/2021 Today's date: 07/04/21 Number [...] neuropathy follows neurology. Presented to ED from jail, found confused outside. Imaging negative. She complains [...] mL, PRN tiZANidine, 2 mg, Q8H PRN fkunlcgrla-wwfsllrccqfiy-utiwqysj, 1 tablet, Q4H PRN hydrALAZINE, 10 mg, [...] by: VIRGIE Parker AT 0225 ON 07/04/21 Imaging: CT Head WO Contrast [...] controlled Elevated troponins: Downtrending likely type II WV -echo result pending Hypokalemia: K+ 2.9 today. [...] Argueta MD Internal Medicine Resident, PGY- 1 [facility]; [place], [place] 07/04/2021, 7:05 AM Associated attestation - [...] CIDP (chronic inflammatory demyelinating polyneuropathy) (HCC); Sepsis ([facility]); Bacteremia; Hypothyroidism; Hypokalemia; Type 2 diabetes mellitus with diabetic polyneuropathy (HCC); Primary hypertension; Upper GI bleed; Non-intractable vomiting; Unintentional weight loss; Acute metabolic encephalopathy; and MSSA (methicillin susceptible Staphylococcus aureus) septicemia ([facility]) on their problem list. Date of Eval: [...] hyperlipidemia, sleep apnea, who was transferred from [facility], after she presented from her jail for an episode of confusion overnight where she was found wandering outside her jail. She does not recall the episode very well, complaining of head pain, generalized weakness, weak voice. She had CT head done at outside facility which did not show any acute changes, telestroke was consulted for the concern for confusion, they recommended transfer to [place] for MRI of the brain. Patient has a complicated history over the last few years, has been seen by neurology at [facility] for worsening neuropathy symptoms, eventually diagnosed with CIDP and she is on IVIG infusions every 2 weeks although she has not had them in the last month or so since being in the jail. 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 Recommendations: Requires COMPLIANCE REPRESENTATIVE Intervention: Yes D/C Recommendations: Ongoing speech therapy [...] were not included. [facility] - Infectious diseases evaluation admission date 06/28/2021 [...] the rise clayton[pite tx Infection Control Recommendations Remlap Precautions Contact Isolation Antimicrobial Stewardship Recommendations Simplification of therapy Targeted therapy History of Present Illness: Initial history: Meg Georges is a 56 y.o.-year-old female presented to the ED for altered mental status. Patient is currently admitted under neurology service. Patient presented from a jail after an episode of confusion overnight where she was found wandering outside her jail. She had CT head done at outside facility which did not show any acute changes, telestroke was consulted for the concern of confusion, they recommended transfer to [facility] for MRI of the brain. BC SA MSSA and LP neg CRP elevated and WBc up - creat normal 06/29 mentally recovered Neck pain x 1 mo Left sole callus [place] She gets her IvIg through a periph [...] infection or mets BC still + through 5/16 Did not meet criteria for the SA [...] Friends and Family: Not on file Attends Anglican Services: Not on file Active Member of [...] following labs: CBC with Differential: Recent Labs 07/02/21 0419 07/02/21 1508 07/02/21 2042 07/03/21 [...] Crowe MD Office: [facility] / office [phone] \ Echo completed in echo lab. Images [...] She was found wandering outside of her jail. She was admitted to the medicine team and was found to have sepsis as well as a GI bleed. Neurology was consulted due to altered mentation and headache. CT head was done and was unremarkable. CTA head neck unremarkable. EEG was normal. Spinal tap was done in the ED with CSF studies negative for meningitis or 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 infection. For her headache she was placed [...] LABA1C 9.4 (H) 06/28/2021 LABMICR 7 06/25/2013 [id number] 374 06/28/2016 Diagnostic data reviewed: CT HEAD [...] CIDP Plan: -CSF studies are negative for 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 infection -Patient headache is improved with Depacon; [...] to ensure the accuracy of this automated shipwright supervisor, some errors in shipwright supervisor may have occurred. Images from the original note were not included. [facility] Internal Medicine Teaching Residency Program Inpatient Daily Progress Note __ Patient: Meg Georges Date of : 1965 Acct: [id number] Room: 0146/0146-01 Admit date: 06/28/2021 Today's date: 07/03/21 Number [...] neuropathy follows neurology. Presented to ED from jail, found confused outside. Imaging negative. She complains [...] Daily PRN tiZANidine, 2 mg, Q8H PRN ezvsyatnme-ahfaeemmelenb-sjcpurgz, 1 tablet, Q4H PRN hydrALAZINE, 10 mg, [...] 07/02/21 0419 07/02/21 1508 07/02/21 2042 07/03/21 043 WBC 12.6* -- 16.7* -- -- -- [...] 07/02/21 0419 07/02/21 1015 07/02/21 1757 07/03/21 043 NA 137 -- 134* -- -- -- [...] controlled Elevated troponins: Downtrending likely type II WV -echo result pending Hypokalemia: K+ 2.9 today. [...] Argueta MD Internal Medicine Resident, PGY- 1 [facility]; [place], [place] 07/03/2021, 5:58 AM Associated attestation - [...] were not included. [facility] - Infectious diseases evaluation admission date 06/28/2021 [...] scan to the neck Infection Control Recommendations Remlap Precautions Contact Isolation Antimicrobial Stewardship Recommendations Simplification of therapy Targeted therapy History of Present Illness: Initial history: Meg Georges is a 56 y.o.-year-old female presented to the ED for altered mental status. Patient is currently admitted under neurology service. Patient presented from a jail after an episode of confusion overnight where she was found wandering outside her jail. She had CT head done at outside facility which did not show any acute changes, telestroke was consulted for the concern of confusion, they recommended transfer to [facility] for MRI of the brain. BC SA MSSA and LP neg CRP elevated and WBc up - creat normal 06/29 mentally recovered Neck pain x 1 mo Left sole callus [place] She gets her IvIg through a periph [...] Friends and Family: Not on file Attends Anglican Services: Not on file Active Member of [...] Differential: Recent Labs 07/01/21 0631 07/01/21 1558 07/01/218 07/02/21 0419 WBC 12.6* -- -- 16.7* HGB 9.0* < > 8.8* 9.0* HCT 28.4* < > 27.2* 28.2* PLT 284 -- -- 299 LYMPHOPCT 17* -- -- 21* MONOPCT 6 -- -- 4 < > = values in this interval not displayed. BMP: Recent Labs 07/01/21 0631 07/01/21 0631 07/01/2145 07/01/21 1558 07/02/219 07/02/21 1015 NA 137 -- -- -- [...] Crowe MD Office: Perfect serve / office [phone] \ Speech Language Pathology [facility] Speech Language Pathology Date: 07/02/2021 Patient Name: [...] as appropriate Completed by: HOLGER Larson, M.S. [facility]-COMPLIANCE REPRESENTATIVE NEUROLOGY INPATIENT PROGRESS NOTE 07/02/2021 Subjective: Meg Georges is a 56 y.o. female admitted on 06/28/2021 with Stupor [R40.1] Encephalitis [G04.90] Altered mental state [R41.82] Briefly, this is a 56 y.o. 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 She was found wandering outside her jail. Admitted to medicine for sepsis work up, [...] 0-6 Units SubCUTAneous Nightly PRN Meds include: zlguvfsedd-bdcktflhikcdm-lgfctkja, hydrALAZINE, sodium chloride flush, sodium chloride, ondansetron [...] LABA1C 9.4 (H) 06/28/2021 LABMICR 7 06/25/2013 [id number] 374 06/28/2016 No results found for: PHENYTOIN, [...] confusion. She was found wandering outside her jail. MSSA sepsis - on Abx per primary. [...] for EGD today. CSF studies negative for 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 infection. Will continue to follow. Pawan Dutton DO 07/02/2021 3:45 PM Images from the original note were not included. [facility] Internal Medicine Teaching Residency Program Inpatient Daily Progress Note __ Patient: Meg Georges Date of : 1965 Acct: [id number] Room: [facility]/0146-01 Admit date: 06/28/2021 Today's date: 07/02/21 Number of days in the hospital: 4 SUBJECTIVE Admitting Diagnosis: Sepsis (HCC) CC: altered mentation Pt examined at bedside. Chart & results reviewed. BP 114/58, pulse 66, afebrile. Complains of headache, improved on depacon. Neurology managing ENT consulted for hoarse voice found left vocal cord paralysis of unknown cause. Needs formal speech/swallow eval BC 07/01/2021 positive. On Nafcillin BP 161/67, alert [...] neuropathy follows neurology. Presented to ED from jail, found confused outside. Imaging negative. She complains [...] at 07/01/21 0600 sodium chloride dextrose PRN Cypazxqytxdtbceuewbvy-spqaawrinzvqc-iv ffeine, 1 tablet, Q4H PRN hydrALAZINE, 10 [...] Labs 07/01/21 0631 07/01/21 0631 07/01/21 1558 07/01/218 07/02/219 WBC 12.6* -- -- -- 16.7* RBC 3.43* -- -- -- 3.47* HGB 9.0* < > 8.6* 8.8* 9.0* HCT 28.4* < > 26.7* 27.2* 28.2* MCV 82.8 -- -- -- 81.3* RDW 16.2* -- -- -- 16.3* PLT 284 -- -- -- 299 < > = values in this interval not displayed. BMP: Recent Labs 07/01/21 0631 07/01/21 0631 07/01/2145 07/01/21155707/02/219 NA 137 -- -- -- 134* K [...] N&V Elevated troponins: Downtrending likely type II WV -echo result pending Hypokalemia: K+ 2.2 today. Replace PO and IV and monitor Left Vocal cord paralysis: Ongoing x 1 month. ENT on board. Plan for injection laryngoplasty for voice/swallowing improvement at some point. Needs formal speech therapy/swallow study assessment as she is likely aspirating liquids Rufus Argueta MD Internal Medicine Resident, PGY- 1 [facility]; [place], [place] 07/02/2021, 7:16 AM Associated attestation - [...] history and exam findings with the resident/ CATCHER FILTER TIP. I have seen and examined the patient and the coffey elements of the encounter have been performed by me. I agree with the assessment, plan and orders as documented by the resident or CATCHER FILTER TIP with changes made to the note. Briefly, this is a 56 y.o. female with known dx of CIDP (on 2wkly IVIG), IDDM, HLD, sleep apnea was admitted on 06/28/2021 with episodic confusion; found wandering outside her jail. Her history is significant for CIDP for [...] 0-6 Units SubCUTAneous Nightly PRN Meds include: nuetiwjlrw-ypdzgqyywixto-xolfalov, hydrALAZINE, sodium chloride flush, sodium chloride, ondansetron [...] displayed. BMP: Recent Labs 06/29/21 03507/01/21 0631 07/01/21 0845 NA 137 137 -- [...] LABA1C 9.4 (H) 06/28/2021 LABMICR 7 06/25/2013 [id number] 374 06/28/2016 Impression and Plan: Ms. Meg [...] you. Jenifer Jewell MD 07/01/2021 2:01 PM [facility] Neurology IN-PATIENT SERVICE [facility] Progress note Date: 07/01/2021 Patient name: Meg Georges Date of admission: 06/28/2021 11:59 AM Account: [id number] Date of : 1965 PCP: Neri Santa Sr, DO Room: [address] [place] [address] Code Status: Full Code Chief Complaint: Chief Complaint Patient presents with Altered Mental Status Interval hx: The Patient was seen and examined at bedside Is vitally stable alert oriented x3 No acute events overnight Patient resting in bed comfortable this AM only complaint is persistent left frontal headache 07/27. No response to Fioricet PRN will give [...] persistent acute left frontal headache Lipid panel 06/28/21 Total cholesterol 155, LDL 63 SRT2P-4.4 this admission CSF studies 06/28/21 Oligoclonal banding [...] # 2.14 1.0 - 4.8 k/uL Absolute Franklin # 0.76 0.1 - 0.8 k/uL Absolute [...] 2.6 mg/dL Assessment : Primary Problem Sepsis (HCC) Active Hospital Problems Diagnosis Date Noted Acute metabolic encephalopathy [G93.41] 06/30/2021 Priority: Medium MSSA (methicillin susceptible Staphylococcus aureus) septicemia ([facility]) [A41.01] 06/30/2021 Priority: Medium Upper GI bleed [K92.2] Priority: Medium Non-intractable vomiting [R11.10] Priority: Medium Unintentional weight loss [R63.4] Priority: Medium Sepsis ([facility]) [A41.9] 06/29/2021 Priority: Medium Bacteremia [R78.81] 06/29/2021 Priority: Medium Hypothyroidism [E03.9] 06/29/2021 Priority: Medium Hypokalemia [E87.6] 06/29/2021 Priority: Medium Type 2 diabetes mellitus with diabetic polyneuropathy ([facility]) [E11.42] 06/29/2021 Priority: Medium Primary hypertension [I10] 06/29/2021 Priority: Medium Encephalopathy [G93.40] Priority: Medium CIDP (chronic inflammatory demyelinating polyneuropathy) ([facility]) [G61.81] Priority: Medium Altered mental state [R41.82] [...] history and exam findings with the resident/ CATCHER FILTER TIP. I have seen and examined the patient and the coffey elements of the encounter have been performed by me. I agree with the assessment, plan and orders as documented by the resident or CATCHER FILTER TIP with changes made to the note. Briefly, this is a 56 y.o. female with known dx of CIDP (on 2wkly IVIG), IDDM, HLD, sleep apnea was admitted on 06/28/2021 with episodic confusion; found wandering outside her jail. Her history is significant for CIDP for [...] SubCUTAneous Nightly PRN Meds include: PRN Medications ltgzoeknef-zogkrwdyzmcjs-rclwqeun, hydrALAZINE, sodium chloride flush, sodium chloride, ondansetron [...] displayed. BMP: Recent Labs 06/29/21 03507/01/21 0631 07/01/21 0845 NA 137 137 -- [...] LABA1C 9.4 (H) 06/28/2021 LABMICR 7 06/25/2013 [id number] 374 06/28/2016 Impression and Plan: Ms. Meg [...] from the original note were not included. [facility] Internal Medicine Teaching Residency Program Inpatient Daily Progress Note __ Patient: Meg Georges Date of : 1965 Acct: [id number] Room: [address] [place] [address] Admit date: 06/28/2021 Today's date: 07/01/21 Number [...] neuropathy follows neurology. Presented to ED from jail, found confused outside. Imaging negative. She complains [...] by provider] carvedilol 25 mg Oral BID sodium chloride flush 5-40 mL IntraVENous 2 times per day [Held by provider] enoxaparin 40 mg SubCUTAneous Daily latanoprost 1 drop Both Eyes Nightly insulin lispro 0-12 Units SubCUTAneous TID insulin lispro 0-6 Units SubCUTAneous Nightly Continuous Infusions: pantoprazole 8 mg/hr (07/01/21 0253) sodium chloride 100 mL/hr at 07/01/21 0600 sodium chloride dextrose PRN Rsuygsvbgueokxbeftifa-lzndveyalwtcs-xq ffeine, 1 tablet, Q4H PRN hydrALAZINE, 10 [...] N&V Elevated troponins: Downtrending likely type II WV -echo result pending Hypokalemia: K+ 2.2 today. Replace PO and IV and monitor Rufus Argueta MD Internal Medicine Resident, PGY- 1 [facility]; [place], [place] 07/01/2021, 7:33 AM Associated attestation - [...] were not included. [facility] - Infectious diseases evaluation Progress Note admission date 06/28/2021 reason for consultation: Sepsis with staph bacteremia Impression : Current: MSSA septicemia 5-12-22 CRP elevation Bandemia Acute metabolic encephalopathy- resolved [...] object in her eyes Infection Control Recommendations Remlap Precautions Antimicrobial Stewardship Recommendations Simplification of therapy Targeted therapy History of Present Illness: INITIAL HISTORY: Meg Georges is a 56 y.o.-year-old female who presented to the ED because of altered mental status. Patient is currently admitted under neurology service. Patient presented from a jail after an episode of confusion overnight where she was found wandering outside her jail. She had CT head done at outside facility which did not show any acute changes. Telestroke was consulted because of the concern with confusion, they recommended transfer to [facility] for MRI of the brain. BC: Staph A (MSSA) and LP neg CRP elevated and WBc up - creat normal 06/29 mentally recovered Neck pain x 1 mo Left sole callus [place] She gets her IvIg through a peripheral [...] No hernia is present. Genitourinary: Comments: Urine chnada Musculoskeletal: General: No swelling. Cervical back: Rigidity [...] Friends and Family: Not on file Attends Anglican Services: Not on file Active Member of [...] Differential: Recent Labs 06/29/21 0351 06/30/21 0909 06/30/21 2129 07/01/21 0631 WBC 15.0* -- -- 12.6* HGB 9.9* < > 9.4* 9.0* HCT 30.0* < > 29.3* 28.4* PLT 380 -- -- 284 LYMPHOPCT 6* -- -- PENDING MONOPCT 3 -- -- PENDING < > = values in this interval not displayed. BMP: Recent Labs 06/29/21 0351 07/01/21 0631 NA 137 137 K 3.2* 2.2* [...] Stokes MD Office: Perfect [facility] / office [phone] [facility] Progress Note Meg Georges is a [...] pantoprazole 8 mg/hr (07/01/21 0253) sodium chloride Stopped (07/01/21 042) sodium chloride dextrose PRN Meds:dpwdkojwyf-wctlvsboxpahk-kiyxvihm , hydrALAZINE, sodium chloride flush, sodium chloride, ondansetron OR ondansetron, acetaminophen OR acetaminophen, potassium chloride OR potassium alternative oral replacement OR potassium chloride, bisacodyl, sodium chloride flush, labetalol, glucose, dextrose bolus OR dextrose bolus, glucagon (rDNA), dextrose Data Review: LABS and IMAGING: CBC Recent Labs 06/28/21 1212 06/29/21 0351 05/14/90806/30/219 WBC 22.0* 15.0* -- -- HGB 10.0* 9.9* 9.8* 9.4* HCT 31.0* 30.0* 31.3* 29.3* MCV 83.3 80.4* -- -- MCHC 32.3 33.0 -- -- RDW 16.1* 16.1* -- -- PLT 379 380 -- -- Immature PLTs No results found for: PLTFLUORE ANEMIA STUDIES No results for input(s): LABIRON, TIBC, IRON, FERRITIN, OVLEJUJS90, FOLATE, OCCULTBLD in the last 72 hours. [...] head and neck. ENDOSCOPY Principal Problem: Sepsis (HCC) Active Problems: Altered mental state Encephalitis Encephalopathy CIDP (chronic inflammatory demyelinating polyneuropathy) ([facility]) Bacteremia Hypothyroidism Hypokalemia Type 2 diabetes mellitus with diabetic polyneuropathy ([facility]) Primary hypertension Upper GI bleed Non-intractable vomiting Unintentional weight loss Acute metabolic encephalopathy MSSA (methicillin susceptible Staphylococcus aureus) septicemia ([facility]) Resolved Problems: * No resolved hospital problems. 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 She was [...] of your patient. Rosalinda Alvarado APRN - CATCHER FILTER TIP on 07/01/2021 at 6:50 AM [facility] Please note that this note was generated using a voice recognition dictation software. 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 Associated attestation - Hari Wagner MD - 07/01/2021 11:00 AM EDT Attending Physician Statement I have seen, examined and discussed the care of Meg Georges, including pertinent history and exam findings, with the CATCHER FILTER TIP. I agree with the assessment, plan and orders as documented by the CATCHER FILTER TIP. SPIR[place]ARE [place] [facility] [place] Shift date: 06/30/21 Shift day: Friday Shift # 2 Room # 0146/0146-01 Name: Meg Georges Age: 56 y.o. Gender: female Gnosticist: [employer] of baptist: Referral: Routine Visit Admit Date & Time: 06/28/2021 11:59 AM PATIENT/EVENT DESCRIPTION: Meg Georges is a 56 y.o. female SPIRITUAL ASSESSMENT/INTERVENTION: Patient appeared to welcome wet char conveyor tender presence. Patient engaged in conversation and stated she had lost her voice. Drill Runner was a ministry of presence and offered prayer for spiritual comfort/support. Patient accepted prayer and expressed gratitude for visit. SPIRITUAL CARE FOLLOW-UP PLAN: Chaplains will remain available to offer spiritual and emotional support as needed. . Spiritual Care Department [facility] [phone] Images from the original note were not included. [facility] Internal Medicine Teaching Residency Program Inpatient Daily Progress Note __ Patient: Meg Georges Date of : 1965 Acct: [id number] Room: 0146/0146-01 Admit date: 06/28/2021 Today's date: 06/30/21 Number [...] neuropathy follows neurology. Presented to ED from jail, found confused outside. Imaging negative. She complains [...] Stopped (06/30/21 0408) sodium chloride dextrose PRN Cvagnmftruoikdvnedadf-nnyzfdhnuaned-il ffeine, 1 tablet, Q4H PRN hydrALAZINE, 10 [...] interval not displayed. BMP: Recent Labs 06/28/21 0410 06/28/21121106/29/21 0351 NA 138 135 137 K 3.4* 4.0 [...] TRIG 105 06/28/2021 LIVER PROFILE: Recent Labs 06/28/210 06/28/211211 AST 16 19 ALT 25 19 [...] N&V Elevated troponins: Downtrending likely type II WV -echo result pending Hypokalemia: Labs pending Jonathan Steve MD Internal Medicine Resident, PGY- 2 [facility]; [place], [place] 06/30/2021, 12:56 PM Associated attestation - [...] with episodic confusion; found wandering outside her jail. Her history is significant for CIDP for [...] 0-6 Units SubCUTAneous Nightly PRN Meds include: tusbhmyabf-gghvjpxktrldz-znokxlhk, hydrALAZINE, sodium chloride flush, sodium chloride, ondansetron [...] bilaterally. Data: Lab Results: CBC: Recent Labs 06/28/21 0410 06/28/21 0410 06/28/21 1212 06/29/21 0351 06/30/21 0909 WBC 21.5* -- 22.0* 15.0* -- HGB 10.1* < > 10.0* 9.9* 9.8* PLT 537* -- 379 380 -- < > = values in this interval not displayed. BMP: Recent Labs 06/28/21 0410 06/28/21 1212 06/29/21 0351 NA 138 135 137 K 3.4* 4.0 [...] LABA1C 9.4 (H) 06/28/2021 LABMICR 7 06/25/2013 [id number] 374 06/28/2016 Impression and Plan: Ms. Meg [...] chronic IVIG every 2 weeks, transferred from [facility] for further neurological evaluation. She [...] any ENT evaluation Diagnosis: Dysphonia Recommendations: Requires COMPLIANCE REPRESENTATIVE Intervention: Yes D/C Recommendations: To be determined [...] were not included. [facility] - Infectious diseases evaluation Progress Note admission [...] object in her eyes Infection Control Recommendations Remlap Precautions Antimicrobial Stewardship Recommendations Simplification of therapy Targeted therapy History of Present Illness: INITIAL HISTORY: Meg Georges is a 56 y.o.-year-old female who presented to the ED because of altered mental status. Patient is currently admitted under neurology service. Patient presented from a jail after an episode of confusion overnight where she was found wandering outside her jail. She had CT head done at outside facility which did not show any acute changes. Telestroke was consulted because of the concern with confusion, they recommended transfer to [facility] for MRI of the brain. BC: Staph A (MSSA) and LP neg CRP elevated and WBc up - creat normal 06/29 mentally recovered Neck pain x 1 mo Left sole callus [place] She gets her IvIg through a peripheral [...] Friends and Family: Not on file Attends Anglican Services: Not on file Active Member of [...] 6* MONOPCT 4 3 BMP: Recent Labs 06/28/21 0410 06/28/21 0410 06/28/21121106/29/21 0351 NA 138 < > 135 137 K 3.4* < > 4.0 3.2* CL 95* < > 97* 97* CO2 27 < > 23 25 BUN 25* < > 18 18 CREATININE 0.89 < > 0.70 0.76 MG 1.9 -- -- 2.3 < > = values in this interval not displayed. Hepatic Function Panel: Recent Labs 06/28/21 0410 06/28/21 0410 06/28/21121106/28/21 1417 PROT 8.5* -- [...] Stokes MD Office: Perfect [facility] / office [phone] Dr Crowe phoned entry writer with new order d/c MRI d/t unknown foreign object in patients eyes. New order for bone scan for cervical spine,look for osteomyelitis. EEG completed Speech Language Pathology [facility] Speech Language Pathology Date: 06/29/2021 Patient Name: [...] 06/30 Completed by: Chaitanya Pratt Graduate Clinician ROBBIE MCKEON, COMPLIANCE REPRESENTATIVE, M.A. [facility]-COMPLIANCE REPRESENTATIVE [facility] Pharmacokinetic Monitoring Service - Vancomycin Meg [...] for the consult, David Donnelly Pharm.D., [facility] 06/29/2021 9:15 AM Neurology Resident Progress [...] No nausea, vomiting, diarrhea. Genitourinary: No increa [employer] Work Phone: 07-10-2021 Hospital Discharge instructions Sebas Arnold RN - 07/10/2021 7:52 AM EDT Continuity of Care Form Patient Name: Meg Georges : 1965 Admit date: 06/28/2021 Discharge date: 07/10/2021 Code Status Order: Full Code Advance Directives: Admitting Physician: Silver Carmona MD PCP: Neri Santa Sr, DO Discharging Nurse: Thierry Discharging Hospital Unit/Room#: 0146/0146-01 Discharging Unit Phone Number: [phone] Emergency Contact: Extended Emergency Contact Information Primary Emergency Contact: Hina Thomas [facility] Mobile Relation: Brother/Sister Past Surgical History: Past [...] Encephalopathy G93.40 CIDP (chronic inflammatory demyelinating polyneuropathy) ([facility]) G61.81 Sepsis ([facility]) A41.9 Bacteremia R78.81 Hypothyroidism E03.9 Hypokalemia E87.6 Type 2 diabetes mellitus with diabetic polyneuropathy ([facility]) E11.42 Primary hypertension I10 Upper GI bleed K92.2 Non-intractable vomiting R11.10 Unintentional weight loss R63.4 Acute metabolic encephalopathy G93.41 MSSA (methicillin susceptible Staphylococcus aureus) septicemia ([facility]) A41.01 CRP elevated R79.82 Bandemia D72.825 Allergy to multiple antibiotics Z88.1 Pyogenic inflammation of bone ([facility]) M86.9 Acute intractable headache R51.9 Acute osteomyelitis of cervical spine ([facility]) M46.22 Abscess in epidural space of cervical [...] - PICC - site {Anatomy; iv placement site:[id number]}, insertion date: 07/10/2021 Nursing Mobility/ADLs: Walking Assisted Transfer Assisted Bathing Assisted Dressing Assisted Toileting Assisted Feeding Assisted Sales Operations Associate Assisted Med Delivery crushed Wound Care Documentation and Therapy: Wound 07/02/21 Foot Left;Plantar Dry, scabbed. No drainage noted. (Active) Dressing/Treatment Open to air 07/10/21 0400 Wound Assessment Dry;Eschar dry 07/10/21 0400 Drainage Amount None 07/10/21 0400 Odor None 07/10/21 0400 Shannan-wound Assessment Intact 07/10/21 0400 Number of days: 7 Incision 07/06/21 Neck Posterior (Active) Dressing Status Clean;Dry;Intact 07/10/21 0400 Incision Cleansed Not Cleansed 07/06/21 2219 Dressing/Treatment Alginate 07/10/21 0400 Closure Other (Comment) [...] completed shifts: In: 9447.3 [P.O.:300; I.V.:7386.3; IV Piggyback:1] Out: 1944 [Urine:1939; Drains:] Safety Concerns: History of Falls (last 30 days) and At Risk for Falls Impairments/Disabilities: Speech Nutrition Therapy: Current Nutrition Therapy: - Oral Diet: General and Dysphagia 2 mechanically altered Routes of Feeding: Oral Liquids: [place] Thick Liquids Daily Fluid Restriction: no Last [...] DME order): wheelchair and walker Other Treatments: Retirement Assessment Patient's personal belongings (please select all that are sent with patient): Trey RN SIGNATURE: CASE MANAGEMENT/SOCIAL WORK SECTION Inpatient Status Date: Readmission Risk Assessment Score: Readmission Risk Risk of Unplanned Readmission: 23 Discharging to Facility/ Agency [facility] Available Retirement Address [address] [facility] [address] Contact Information [phone] Dialysis Facility (if applicable) Name: Address: Dialysis Schedule: Phone: Fax: [employer]/Community Service Technician signature: PHYSICIAN SECTION Prognosis: Good Condition at [...] the diagnosis listed and that she requires Retirement Facility for less 30 days. Update Admission [...] any urinary retention documented in this encounter [employer] Phone: 06-28-2021 History of Present illness Narrative Updated sister, Hina. States will be in. This nurse called and spoke with Rachel (nurse) at [facility] to get an updated med list. Rachel [...] she was vomiting. documented in this encounter [employer] Phone: 05-11-2021 History of Present illness Narrative The patient tolerated the infusion well without any complications. documented in this encounter [facility] 05-01-2021 Instructions Tia Baugh PA-C - 05/01/2021 [...] sent through Care Everywhere.Staph Infection: General Info ([place])Moise ([place]izen [place])documented in this encounter [facility] 05-01-2021 History of Present illness Narrative PATIENT NAME: Meg Joaquin [facility] URGENT CARE: [address] [facility] [id number] DATE OF VISIT: 05/01/2021 DATE OF : 1965 SS: [id number] PROVIDER: SUBJECTIVE 56 y.o. female to the clinic for [...] without toes, left 01/26/2019 Asthma Atherosclerosis of [place] arteries of left leg with ulceration of [...] 11/11/2017 Corns and callosities 03/13/2016 Diabetes mellitus ([facility]) Dystrophic nail 11/15/2016 Foot cramps Foot ulcer (HCC) 02/25/2019 OTHER PART OF FOOT Fracture of third toe, left, closed 02/15/2016 Fungal toenail infection 11/15/2016 GERD (gastroesophageal reflux disease) Glaucoma both eyes Heart murmur High cholesterol 03/27/2015 Hyperlipidemia Hypertension Ingrown toenail 10/30/2015 Leg cramps Metatarsalgia of both feet 10/07/2016 Neuropathy Non-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 ([facility]) 09/06/2016 Non-pressure chronic ulcer of left lower [...] right great toe 09/19/2017 Onychomycosis 12/13/2015 Osteomyelitis ([facility]) 04/23/2019 Peripheral vascular disease ([facility]) 08/17/2019 Pre-ulcerative calluses 08/13/2018 Right foot ulcer ([facility]) 09/26/2014 Shortness of breath Sprain of calcaneofibular [...] Type 2 diabetes mellitus with foot ulcer ([facility]) 06/19/2016 Type 2 diabetes, uncontrolled, with peripheral circulatory disorder ([facility]) 03/28/2017 Xerosis cutis 01/17/2016 Family History Problem [...] for this visit. -Aerobic culture of the [id number] from the small finger of the right hand -Doxycycline 100 mg twice daily for 7 days -Mupirocin ointment to be applied 3 times daily to the affected area and a light layer -I have contacted Dr. Stanley's office in [place] and hoping to schedule a follow-up visit with Dr. Stanley for further evaluation of the patient's hand. Tia Baugh 05/01/2021 documented in this encounter [facility] 04-17-2021 History of Present illness Narrative Left [...] of her wounds documented in this encounter [facility] 04-12-2021 Note Procedure date: 04/12. Intraocular injection: 1.25 mg Bevacizumab (AVASTIN) 2.5mg/0.1 ML syringe ND: 49246-882-76, Lot: [id number], Expiration date: 06/10/2021 Route: Intravitreal, Site: Right Eye Notes Bevacizumab (Avastin) Intraocular Injection Right Eye - OPHTHALMOLOGY PROCEDURE NOTE PROCEDURE PERFORMED BY: hSaron Hernandez MD ADMISSIONS ADVISOR(S): None ATTENDING: Sharon Hernandez MD PROCEDURE DATE: 04/12/2021 PROCEDURE START TIME: 10:47 AM INDICATIONS: Treatment of ICD-10-CM 1. Diabetic macular edema E11.311 W[place] BEVACIZUMAB SOLN - OD EYE: Right (OD) [...] THIS PROCEDURE REQUIRE A UNIVERSAL PROTOCOL? Yes. Remlap Protocol is required. Pre-procedure verification was completed. [...] saline and an antibiotic drop was instilled. [facility] 04-05-2021 Note Procedure date: 04/05. Intraocular injection: 1.25 mg Bevacizumab (AVASTIN) 2.5mg/0.1 ML syringe NDC: 90234-977-11, Lot: [id number], Expiration date: 05/01/2021 Route: Intravitreal, Site: Left Eye Notes Bevacizumab (Avastin) Intraocular Injection Left Eye - OPHTHALMOLOGY PROCEDURE NOTE PROCEDURE PERFORMED BY: Sharon Hernandez MD ADMISSIONS ADVISOR(S): None ATTENDING: Sharon Hernandez MD PROCEDURE DATE: 04/05/2021 PROCEDURE START TIME: 11:15 AM INDICATIONS: Treatment of ICD-10-CM 1. 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 Yes. Remlap Protocol is required. Pre-procedure verification was completed. [...] saline and an antibiotic drop was instilled. [facility] 03-27-2021 History of Present illness Narrative [...] of her wounds documented in this encounter [facility] 02-20-2021 Instructions Jef Sierra Jr., DPM - 02/20/2021 10:07 AM EST Continue topical antibiotic ointment and bandaid with padding. documented in this encounter [facility] 02-20-2021 History of Present illness Narrative HPI [...] without toes, left 01/26/2019 Asthma Atherosclerosis of [place] arteries of left leg with ulceration of [...] right great toe 09/19/2017 Onychomycosis 12/13/2015 Osteomyelitis ([facility]) 04/23/2019 Peripheral vascular disease ([facility]) 08/17/2019 Pre-ulcerative calluses 08/13/2018 Right foot ulcer ([facility]) 09/26/2014 Shortness of breath Sprain of calcaneofibular [...] Type 2 diabetes mellitus with foot ulcer ([facility]) 06/19/2016 Type 2 diabetes, uncontrolled, with peripheral circulatory disorder ([facility]) 03/28/2017 Xerosis cutis 01/17/2016 Past Surgical History: [...] clean dry [facility]Follow-up in 2 weeks to review. documented in this encounter [facility] 02-14-2021 Note Procedure date: 01/18. Right Eye [...] Recommendation for management is to continue treatment. [facility] 02-14-2021 Note Procedure date: 01/18. Intraocular injection: 1.25 mg Bevacizumab (AVASTIN) 2.5mg/0.1 ML syringe NDC: 21800-460-20, Lot: [id number], Expiration date: 03/07/2021 Route: Intravitreal, Site: Right Eye Notes Bevacizumab (Avastin) Intraocular Injection Right Eye - OPHTHALMOLOGY PROCEDURE NOTE PROCEDURE PERFORMED BY: Sharon Hernandez MD ADMISSIONS ADVISOR(S): None ATTENDING: Sharon Hernandez MD PROCEDURE DATE: 02/14/2021 PROCEDURE START TIME: 10:25 AM INDICATIONS: Treatment of ICD-10-CM 1. Diabetic macular edema E11.311 W[place] BEVACIZUMAB SOLN - OD EYE: Right (OD) [...] THIS PROCEDURE REQUIRE A UNIVERSAL PROTOCOL? Yes. Remlap Protocol is required. Pre-procedure verification was completed. [...] saline and an antibiotic drop was instilled. [facility] 02-12-2021 Note Procedure date: 01/18. Intraocular injection: 1.25 mg Bevacizumab (AVASTIN) 2.5mg/0.1 ML syringe [facility]: 81643-780-75, Lot: [id number], Expiration date: 03/01/2021 Route: Intravitreal, Site: Left Eye Notes Bevacizumab (Avastin) Intraocular Injection Left Eye - OPHTHALMOLOGY PROCEDURE NOTE PROCEDURE PERFORMED BY: Sharon Hernanedz MD ADMISSIONS ADVISOR(S): None ATTENDING: Sharon Hernandez MD PROCEDURE DATE: 02/12/2021 PROCEDURE START TIME: 10:46 AM INDICATIONS: Treatment of ICD-10-CM 1. Diabetic macular edema E11.311 bevacizumab 1.25 MG/0.05 ML Solution W[place] BEVACIZUMAB SOLN - OS [place] BEVACIZUMAB SOLN - OS EYE: Left (OS) [...] THIS PROCEDURE REQUIRE A UNIVERSAL PROTOCOL? Yes. Remlap Protocol is required. Pre-procedure verification was completed. [...] saline and an antibiotic drop was instilled. [facility] 2021 History of Present illness Narrative [...] without toes, left 01/26/2019 Asthma Atherosclerosis of [place] arteries of left leg with ulceration of [...] 11/11/2017 Corns and callosities 03/13/2016 Diabetes mellitus ([facility]) Dystrophic nail 11/15/2016 Foot cramps Foot ulcer (HCC) 02/25/2019 OTHER PART OF FOOT Fracture of third toe, left, closed 02/15/2016 Fungal toenail infection 11/15/2016 GERD (gastroesophageal reflux disease) Glaucoma both eyes Heart murmur High cholesterol 03/27/2015 Hyperlipidemia Hypertension Ingrown toenail 10/30/2015 Leg cramps Metatarsalgia of both feet 10/07/2016 Neuropathy Non-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 ([facility]) 09/06/2016 Non-pressure chronic ulcer of left lower leg with fat layer exposed ([facility]) 03/28/2017 Non-pressure chronic ulcer of other part of left foot with fat layer exposed ([facility]) 08/14/2017 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 involvement without evidence of necrosis ([facility]) 03/14/2017 Non-pressure chronic ulcer of right ankle limited to breakdown of skin ([facility]) 08/14/2016 Nondisplaced fracture of proximal phalanx of right great toe 09/19/2017 Onychomycosis 12/13/2015 Osteomyelitis ([facility]) 04/23/2019 Peripheral vascular disease ([facility]) 08/17/2019 Pre-ulcerative calluses 08/13/2018 Right foot ulcer ([facility]) 09/26/2014 Shortness of breath Sprain of calcaneofibular ligament of right ankle 12/05/2017 Swelling of both ankles Swelling of both lower extremities Thyroid disorder 03/27/2015 Tinea unguium 08/13/2018 Traumatic closed fracture of phalanx of foot with minimal displacement 08/11/2017 Traumatic closed nondisplaced fracture of phalanx of right foot with delayed healing 09/08/2017 Type 2 diabetes mellitus with diabetic neuropathy ([facility]) 11/11/2017 Diabetic autonomic (poly) neuropathy Type 2 diabetes mellitus with foot ulcer ([facility]) 06/19/2016 Type 2 diabetes, uncontrolled, with peripheral circulatory disorder ([facility]) 03/28/2017 Xerosis cutis 01/17/2016 Past Surgical History: [...] clean dry and intact transtion back to [facility] with [facility] -Follow-up in 2 weeks to review. documented in this encounter [facility] 01-30-2021 History of Present illness Narrative HPI [...] without toes, left 01/26/2019 Asthma Atherosclerosis of [place] arteries of left leg with ulceration of [...] 11/11/2017 Corns and callosities 03/13/2016 Diabetes mellitus ([facility]) Dystrophic nail 11/15/2016 Foot cramps Foot ulcer ([facility]) 02/25/2019 OTHER PART OF FOOT Fracture of third toe, left, closed 02/15/2016 Fungal toenail infection 11/15/2016 GERD (gastroesophageal reflux disease) Glaucoma both eyes Heart murmur High cholesterol 03/27/2015 Hyperlipidemia Hypertension Ingrown toenail 10/30/2015 Leg cramps Metatarsalgia of both feet 10/07/2016 Neuropathy Non-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 ([facility]) 09/06/2016 Non-pressure chronic ulcer of left lower leg with fat layer exposed ([facility]) 03/28/2017 Non-pressure chronic ulcer of other part of left foot with fat layer exposed (HCC) 08/14/2017 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 involvement without evidence of necrosis ([facility]) 03/14/2017 Non-pressure chronic ulcer of right ankle limited to breakdown of skin ([facility]) 08/14/2016 Nondisplaced fracture of proximal phalanx of right great toe 09/19/2017 Onychomycosis 12/13/2015 Osteomyelitis ([facility]) 04/23/2019 Peripheral vascular disease ([facility]) 08/17/2019 Pre-ulcerative calluses 08/13/2018 Right foot ulcer ([facility]) 09/26/2014 Shortness of breath Sprain of calcaneofibular [...] clean dry and intact transtion back to cam boot with [facility] -Follow-up in 1 weeks to review. documented in this encounter [facility] 01-30-2021 Instructions Jef Sierra Jr., DPM - 01/30/2021 10:50 AM EST Continue ashu at home documented in this encounter [facility] 01-24-2021 History of Present illness Narrative HPI [...] without toes, left 01/26/2019 Asthma Atherosclerosis of [place] arteries of left leg with ulceration of [...] 11/11/2017 Corns and callosities 03/13/2016 Diabetes mellitus ([facility]) Dystrophic nail 11/15/2016 Foot cramps Foot ulcer ([facility]) 02/25/2019 OTHER PART OF FOOT Fracture of third toe, left, closed 02/15/2016 Fungal toenail infection 11/15/2016 GERD (gastroesophageal reflux disease) Glaucoma both eyes Heart murmur High cholesterol 03/27/2015 Hyperlipidemia Hypertension Ingrown toenail 10/30/2015 Leg cramps Metatarsalgia of both feet 10/07/2016 Neuropathy Non-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 ([facility]) 09/06/2016 Non-pressure chronic ulcer of left lower leg with fat layer exposed ([facility]) 03/28/2017 Non-pressure chronic ulcer of other part of left foot with fat layer exposed ([facility]) 08/14/2017 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 involvement without evidence of necrosis ([facility]) 03/14/2017 Non-pressure chronic ulcer of right ankle limited to breakdown of skin ([facility]) 08/14/2016 Nondisplaced fracture of proximal phalanx of right great toe 09/19/2017 Onychomycosis 12/13/2015 Osteomyelitis ([facility]) 04/23/2019 Peripheral vascular disease ([facility]) 08/17/2019 Pre-ulcerative calluses 08/13/2018 Right foot ulcer ([facility]) 09/26/2014 Shortness of breath Sprain of calcaneofibular ligament of right ankle 12/05/2017 Swelling of both ankles Swelling of both lower extremities Thyroid disorder 03/27/2015 Tinea unguium 08/13/2018 Traumatic closed fracture of phalanx of foot with minimal displacement 08/11/2017 Traumatic closed nondisplaced fracture of phalanx of right foot with delayed healing 09/08/2017 Type 2 diabetes mellitus with diabetic neuropathy ([facility]) 11/11/2017 Diabetic autonomic (poly) neuropathy Type 2 diabetes mellitus with foot ulcer ([facility]) 06/19/2016 Type 2 diabetes, uncontrolled, with peripheral circulatory disorder ([facility]) 03/28/2017 Xerosis cutis 01/17/2016 Past Surgical History: [...] weeks to review. documented in this encounter [facility] 01-16-2021 History of Present illness Narrative HPI [...] without toes, left 01/26/2019 Asthma Atherosclerosis of [place] arteries of left leg with ulceration of other part of foot ([facility]) 03/14/2017 Back problem Bilateral foot-drop 02/01/2016 Callus [...] 11/11/2017 Corns and callosities 03/13/2016 Diabetes mellitus ([facility]) Dystrophic nail 11/15/2016 Foot cramps Foot ulcer ([facility]) 02/25/2019 OTHER PART OF FOOT Fracture of third toe, left, closed 02/15/2016 Fungal toenail infection 11/15/2016 GERD (gastroesophageal reflux disease) Glaucoma both eyes Heart murmur High cholesterol 03/27/2015 Hyperlipidemia Hypertension Ingrown toenail 10/30/2015 Leg cramps Metatarsalgia of both feet 10/07/2016 Neuropathy Non-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 ([facility]) 09/06/2016 Non-pressure chronic ulcer of left lower leg with fat layer exposed ([facility]) 03/28/2017 Non-pressure chronic ulcer of other part of left foot with fat layer exposed ([facility]) 08/14/2017 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 involvement without evidence of necrosis ([facility]) 03/14/2017 Non-pressure chronic ulcer of right ankle limited to breakdown of skin ([facility]) 08/14/2016 Nondisplaced fracture of proximal phalanx of right great toe 09/19/2017 Onychomycosis 12/13/2015 Osteomyelitis ([facility]) 04/23/2019 Peripheral vascular disease ([facility]) 08/17/2019 Pre-ulcerative calluses 08/13/2018 Right foot ulcer ([facility]) 09/26/2014 Shortness of breath Sprain of calcaneofibular ligament of right ankle 12/05/2017 Swelling of both ankles Swelling of both lower extremities Thyroid disorder 03/27/2015 Tinea unguium 08/13/2018 Traumatic closed fracture of phalanx of foot with minimal displacement 08/11/2017 Traumatic closed nondisplaced fracture of phalanx of right foot with delayed healing 09/08/2017 Type 2 diabetes mellitus with diabetic neuropathy ([facility]) 11/11/2017 Diabetic autonomic (poly) neuropathy Type 2 diabetes mellitus with foot ulcer ([facility]) 06/19/2016 Type 2 diabetes, uncontrolled, with peripheral circulatory disorder ([facility]) 03/28/2017 Xerosis cutis 01/17/2016 Past Surgical History: [...] weeks to review. documented in this encounter [facility] 01-16-2021 Instructions Jef Sierra Jr., DPM - 01/16/2021 11:27 AM EST Keep bandage clean dry and intat documented in this encounter [facility] 01-09-2021 History of Present illness Narrative HPI [...] without toes, left 01/26/2019 Asthma Atherosclerosis of [place] arteries of left leg with ulceration of other part of foot ([facility]) 03/14/2017 Back problem Bilateral foot-drop 02/01/2016 Callus [...] 11/11/2017 Corns and callosities 03/13/2016 Diabetes mellitus ([facility]) Dystrophic nail 11/15/2016 Foot cramps Foot ulcer ([facility]) 02/25/2019 OTHER PART OF FOOT Fracture of [...] of left foot with fat layer exposed ([facility]) 08/14/2017 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 involvement without evidence of necrosis ([facility]) 03/14/2017 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) 08/14/2016 Nondisplaced fracture of proximal phalanx of right great toe 09/19/2017 Onychomycosis 12/13/2015 Osteomyelitis ([facility]) 04/23/2019 Peripheral vascular disease ([facility]) 08/17/2019 Pre-ulcerative calluses 08/13/2018 Right foot ulcer ([facility]) 09/26/2014 Shortness of breath Sprain of calcaneofibular ligament of right ankle 12/05/2017 Swelling of both ankles Swelling of both lower extremities Thyroid disorder 03/27/2015 Tinea unguium 08/13/2018 Traumatic closed fracture of phalanx of foot with minimal displacement 08/11/2017 Traumatic closed nondisplaced fracture of phalanx of right foot with delayed healing 09/08/2017 Type 2 diabetes mellitus with diabetic neuropathy ([facility]) 11/11/2017 Diabetic autonomic (poly) neuropathy Type 2 diabetes mellitus with foot ulcer ([facility]) 06/19/2016 Type 2 diabetes, uncontrolled, with peripheral circulatory disorder ([facility]) 03/28/2017 Xerosis cutis 01/17/2016 Past Surgical History: [...] weeks to review. documented in this encounter [facility] 01-09-2021 Instructions Jef Sierra Jr., DPM - 01/09/2021 8:49 AM EST Keep bandage clean dry and intact documented in this encounter [facility] 01-02-2021 Instructions Jef Sierra Jr., DPM - 01/02/2021 9:19 AM EST Keep bandages clean dry and intact for week documented in this encounter [facility] 01-02-2021 History of Present illness Narrative HPI [...] without toes, left 01/26/2019 Asthma Atherosclerosis of [place] arteries of left leg with ulceration of [...] Dystrophic nail 11/15/2016 Foot cramps Foot ulcer ([facility]) 02/25/2019 OTHER PART OF FOOT Fracture of third toe, left, closed 02/15/2016 Fungal toenail infection 11/15/2016 GERD (gastroesophageal reflux disease) Glaucoma both eyes Heart murmur High cholesterol 03/27/2015 Hyperlipidemia Hypertension Ingrown toenail 10/30/2015 Leg cramps Metatarsalgia of both feet 10/07/2016 Neuropathy Non-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 ([facility]) 09/06/2016 Non-pressure chronic ulcer of left lower leg with fat layer exposed ([facility]) 03/28/2017 Non-pressure chronic ulcer of other part of left foot with fat layer exposed ([facility]) 08/14/2017 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 involvement without evidence of necrosis ([facility]) 03/14/2017 Non-pressure chronic ulcer of right ankle limited to breakdown of skin ([facility]) 08/14/2016 Nondisplaced fracture of proximal phalanx of right great toe 09/19/2017 Onychomycosis 12/13/2015 Osteomyelitis ([facility]) 04/23/2019 Peripheral vascular disease ([facility]) 08/17/2019 Pre-ulcerative calluses 08/13/2018 Right foot ulcer ([facility]) 09/26/2014 Shortness of breath Sprain of calcaneofibular ligament of right ankle 12/05/2017 Swelling of both ankles Swelling of both lower extremities Thyroid disorder 03/27/2015 Tinea unguium 08/13/2018 Traumatic closed fracture of phalanx of foot with minimal displacement 08/11/2017 Traumatic closed nondisplaced fracture of phalanx of right foot with delayed healing 09/08/2017 Type 2 diabetes mellitus with diabetic neuropathy ([facility]) 11/11/2017 Diabetic autonomic (poly) neuropathy Type 2 diabetes mellitus with foot ulcer ([facility]) 06/19/2016 Type 2 diabetes, uncontrolled, with peripheral circulatory disorder ([facility]) 03/28/2017 Xerosis cutis 01/17/2016 Past Surgical History: Procedure Laterality Date BACK SURGERY 1995;1997 CHOLECYSTECTOMY LAPAROSCOPIC 2018 ROTATOR CUFF REPAIR Bilateral [...] weeks to review. documented in this encounter [facility] 12-27-2020 Note Procedure date: 12/18. Intraocular injection: 1.25 mg Bevacizumab (AVASTIN) 2.5mg/0.1 ML syringe ND: 43587-383-11, Lot: [id number], Expiration date: 12/29/2020 Route: Intravitreal, Site: Left Eye Notes Bevacizumab (Avastin) Intraocular Injection Left Eye - OPHTHALMOLOGY PROCEDURE NOTE PROCEDURE PERFORMED BY: Sharon Hernandez MD ADMISSIONS ADVISOR(S): None ATTENDING: Sharon Hernandez MD PROCEDURE DATE: 12/27/2020 PROCEDURE START TIME: 10:17 AM INDICATIONS: Treatment of ICD-10-CM 1. Diabetic macular edema E11.311 OCT/HRT MACULA OU FUNDUS PHOTOGRAPHY-OU WV BEVACIZUMAB SOLN - OS WV BEVACIZUMAB SOLN - OS CANCELED: WV BEVACIZUMAB SOLN - OD EYE: Left (OS) [...] THIS PROCEDURE REQUIRE A UNIVERSAL PROTOCOL? Yes. Remlap Protocol is required. Pre-procedure verification was completed. [...] saline and an antibiotic drop was instilled. [facility] 12-27-2020 Note Procedure date: 12/18. Right [...] Recommendation for management is to continue treatment. [facility] 12-19-2020 Instructions Jef Sierra Jr., DPM - 12/19/2020 11:28 AM EDT Keep bandage clean dry and intact documented in this encounter [facility] 12-19-2020 History of Present illness Narrative HPI [...] without toes, left 01/26/2019 Asthma Atherosclerosis of [place] arteries of left leg with ulceration of [...] of left ankle with fat layer exposed ([facility]) 09/06/2016 Non-pressure chronic ulcer of left lower leg with fat layer exposed ([facility]) 03/28/2017 Non-pressure chronic ulcer of other part of left foot with fat layer exposed ([facility]) 08/14/2017 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 involvement without evidence of necrosis ([facility]) 03/14/2017 Non-pressure chronic ulcer of right ankle limited to breakdown of skin ([facility]) 08/14/2016 Nondisplaced fracture of proximal phalanx of right great toe 09/19/2017 Onychomycosis 12/13/2015 Osteomyelitis ([facility]) 04/23/2019 Peripheral vascular disease ([facility]) 08/17/2019 Pre-ulcerative calluses 08/13/2018 Right foot ulcer ([facility]) 09/26/2014 Shortness of breath Sprain of calcaneofibular ligament of right ankle 12/05/2017 Swelling of both ankles Swelling of both lower extremities Thyroid disorder 03/27/2015 Tinea unguium 08/13/2018 Traumatic closed fracture of phalanx of foot with minimal displacement 08/11/2017 Traumatic closed nondisplaced fracture of phalanx of right foot with delayed healing 09/08/2017 Type 2 diabetes mellitus with diabetic neuropathy ([facility]) 11/11/2017 Diabetic autonomic (poly) neuropathy Type 2 diabetes mellitus with foot ulcer ([facility]) 06/19/2016 Type 2 diabetes, uncontrolled, with peripheral circulatory disorder ([facility]) 03/28/2017 Xerosis cutis 01/17/2016 Past Surgical History: [...] Friends and Family: Not on file Attends [employer] Services: Not on file Active Member of [...] weeks to review. documented in this encounter [facility] 12-13-2020 Note Procedure date: 11/18. [...] Recommendation for management is to continue treatment. [facility] 12-13-2020 Note Procedure date: 11/18. Right Eye Quality was good. Findings include subretinal fluid. Interval change is same. Recommendation for management is to continue treatment. Left Eye Quality was good. Findings include subretinal fluid. Interval change is same. Recommendation for management is to continue treatment. [facility] 12-13-2020 Note Procedure date: 11/18. Intraocular injection: 1.25 mg Bevacizumab (AVASTIN) 2.5mg/0.1 ML syringe NDC: 57639-988-12, Lot: [id number], Expiration date: 12/26/2020 Route: Intravitreal, Site: Right Eye Notes Bevacizumab (Avastin) Intraocular Injection Right Eye - OPHTHALMOLOGY PROCEDURE NOTE PROCEDURE PERFORMED BY: Sharon Hernandez MD ADMISSIONS ADVISOR(S): None ATTENDING: Sharon Hernandez MD PROCEDURE DATE: 12/13/2020 PROCEDURE START TIME: 10:05 AM INDICATIONS: Treatment of ICD-10-CM 1. Diabetic macular edema E11.311 bevacizumab 1.25 MG/0.05 ML Solution WV BEVACIZUMAB SOLN - OD OCT/HRT MACULA OU FUNDUS PHOTOGRAPHY-OU WV BEVACIZUMAB SOLN - OD OCT/HRT MAC[place]A OU [...] THIS PROCEDURE REQUIRE A UNIVERSAL PROTOCOL? Yes. Remlap Protocol is required. Pre-procedure verification was completed. [...] saline and an antibiotic drop was instilled. [facility] 10-17-2020 History of Present illness Narrative [...] as elevated morbidity. documented in this encounter [facility] 10-11-2020 Note Procedure date: 10/10. Right Eye [...] all questions answered Olga Lidia Matos M.D. [facility] Glaucoma Division [facility] [place] [facility] Department of Ophthalmology and Visual Science [...] OS with Dr. Hernandez. Additional details from [facility] HPI reviewed and I agree with documentation Ocular Medications: 10/10/2020 Exam: CCT: UI=480 m; KV=053 m IOP: OD: 25, OS: 16, 10/10/2020 [...] time was spent with patient performing the pathological technician work of this visit. documented in this encounter [facility] 10-10-2020 Instructions Olga Lidia Matos MD - 10/10/2020 1:45 PM EDT Right Eye: Dorzolamide/Timolol 2 times a day Rhopressa 1 drop at bedtime Left Eye: Dorzolamide/Timolol 2 times a day documented in this encounter [facility] 10-03-2020 History of Present illness Narrative I was available on site at [place] for any urgent infusion issues. Jovon Bowers MD Professor of Neurology Director, Neuromuscular Division documented in this encounter [facility] 09-26-2020 History of Present illness Narrative [facility] [...] Laterality: Left; Surgeon: Grace Washington MD; Location: I [facility] PERIOP EXTRACTION EXTRACAPSULAR CATARACT W/ IMPLANT (ECCE IOL) Left 12/23/2018 Laterality: Left; Surgeon: Grace Washington MD; Location: I [facility] PERIOP REPLANTATION AMPUTATED FINGER (DISTAL TIP TO SUBLIMIS TENDON INSERTION) Left 06/2018 AMPUTATION FINGER OR HAND Left 06/2018 tip of middle finger EYE SURGERY Left 06/2017 GALL BLADDER SURGERY 2010 FOOT SURGERY Left 2009 heel SINUS SURGERY 1993 BACK SURGERY lumbar CHOLECYSTECTOMY EXTRACTION EXTRACAPSULAR CATARACT [...] UNIT/ML Solution Pen-injector injection, 3 samples given--Lot [id number], exp 10/2021, Disp: 3 Prefilled Pen/Syringe, Rfl: 0 Insulin Lispro, 1 Unit Dial, 100 UNIT/ML Solution Pen-injector, Use less than 30 units daily with sliding scale., Disp: 5 Prefilled Pen/Syringe, Rfl: 3 Multiple Vitamin (MULTI-DAY PO), take 1 tablet by mouth daily.., Disp: , Rfl: tiZANidine 4 MG Tab tablet, tiZANidinetiZANidine (ZANAFLEX) 4 MG tablet as needed. Lolly Haq [facility] ([id number]), Disp: , Rfl: acetaZOLAMIDE 250 MG tablet, Take 1 tablet by mouth 2 times daily. 90 day supply (Patient not taking: Reported on 09/13/2020), Disp: 180 tablet, Rfl: 1 cyanocobalamin 1000 MCG Tab, Take 2 tablets by mouth daily., Disp: 60 tablet, Rfl: 11 Insulin Degludec (Tresiba FlexTouch) 100 UNIT/ML Solution Pen-injector injection, 3 Samples given [id number], Exp 10/2021 (Patient not taking: Reported on 09/26/2020), Disp: 9 mL, Rfl: 0 Insulin Lispro, 1 Unit Dial, (HumaLOG KwikPen) 100 UNIT/ML Solution Pen-injector, Sample given [id number], exp 09/2022 (Patient not taking: Reported on 09/13/2020), Disp: 1 Prefilled Pen/Syringe, Rfl: 0 Insulin Lispro, 1 Unit Dial, (HumaLOG KwikPen) 100 UNIT/ML Solution Pen-injector, Sample given [id number], Exp-09/2022 (Patient not taking: Reported on 09/26/2020), [...] Social Gatherings with Friends and Family: Attends [employer] Services: Active Member of Clubs or Organizations: Attends Club or Organization Meetings: Marital Status: Intimate Partner Violence: Fear of Current or Ex-Partner: Emotionally Abused: Physically Abused: Sexually Abused: documented in this encounter [facility] 09-26-2020 Instructions Franck Mtz MD - 09/26/2020 [...] results come back. documented in this encounter [facility] 09-21-2020 History of Present illness Narrative The patient tolerated the infusion well without any complications. documented in this encounter [facility] 09-14-2020 History of Present illness Narrative HPI [...] without toes, left 01/26/2019 Asthma Atherosclerosis of [place] arteries of left leg with ulceration of [...] 11/11/2017 Corns and callosities 03/13/2016 Diabetes mellitus ([facility]) Dystrophic nail 11/15/2016 Foot cramps Foot ulcer ([facility]) 02/25/2019 OTHER PART OF FOOT Fracture of third toe, left, closed 02/15/2016 Fungal toenail infection 11/15/2016 GERD (gastroesophageal reflux disease) Glaucoma both eyes Heart murmur High cholesterol 03/27/2015 Hyperlipidemia Hypertension Ingrown toenail 10/30/2015 Leg cramps Metatarsalgia of both feet 10/07/2016 Neuropathy Non-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 ([facility]) 09/06/2016 Non-pressure chronic ulcer of left lower leg with fat layer exposed ([facility]) 03/28/2017 Non-pressure chronic ulcer of other part of left foot with fat layer exposed ([facility]) 08/14/2017 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 involvement without evidence of necrosis ([facility]) 03/14/2017 Non-pressure chronic ulcer of right ankle limited to breakdown of skin ([facility]) 08/14/2016 Nondisplaced fracture of proximal phalanx of right great toe 09/19/2017 Onychomycosis 12/13/2015 Osteomyelitis ([facility]) 04/23/2019 Peripheral vascular disease ([facility]) 08/17/2019 Pre-ulcerative calluses 08/13/2018 Right foot ulcer ([facility]) 09/26/2014 Shortness of breath Sprain of calcaneofibular ligament of right ankle 12/05/2017 Swelling of both ankles Swelling of both lower extremities Thyroid disorder 03/27/2015 Tinea unguium 08/13/2018 Traumatic closed fracture of phalanx of foot with minimal displacement 08/11/2017 Traumatic closed nondisplaced fracture of phalanx of right foot with delayed healing 09/08/2017 Type 2 diabetes mellitus with diabetic neuropathy ([facility]) 11/11/2017 Diabetic autonomic (poly) neuropathy Type 2 diabetes mellitus with foot ulcer ([facility]) 06/19/2016 Type 2 diabetes, uncontrolled, with peripheral circulatory disorder ([facility]) 03/28/2017 Xerosis cutis 01/17/2016 Past Surgical History: [...] Social Gatherings with Friends and Family: Attends [employer] Services: Active Member of Clubs or Organizations: [...] need for procedure. documented in this encounter [facility] 09-13-2020 History of Present illness Narrative History [...] a neurologist. She is also seeing a gas distribution plant operator and wound care. She has a follow-up [...] feels. To get her in touch with [employer], however she does not answer her phone if she does not recognize the number, so likely has been missing their calls. We will coordinate with [employer]; the tracking features of [employer] will undoubtedly help us help her. Hypothyroidism: [...] The patient is nervous/anxious. 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 Diabetic macular edema- Primary [facility] 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 Diabetic macular edema- Primary [facility] Diagnosis 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 Diabetic macular edema- Primary [facility] Diagnosis 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 Diabetic macular edema- Primary [facility] Diagnosis Primary open angle glaucoma (POAG) of right eye, severe stage- Primary Primary open angle glaucoma (POAG) of left eye, severe stage Diabetic macular edema Pseudophakia Lens replaced by other means [facility] Diagnosis Non-intractable vomiting with nausea, unspecified vomiting type- Primary Altered mental status, unspecified altered mental status type Leukocytosis, unspecified type documented in this encounter [employer] Phone: evaluation note* Diagnosis Sepsis (HCC)- Primary Stupor Other alteration of consciousness Encephalitis Unspecified cause of encephalitis, myelitis, and encephalomyelitis Acute osteomyelitis of cervical spine (HCC) 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 MSSA (methicillin susceptible Staphylococcus aureus) septicemia ([facility]) Methicillin susceptible staphylococcus aureus septicemia Primary hypertension [...] Other drug allergy Pyogenic inflammation of bone (HCC) Unspecified osteomyelitis, site unspecified Acute intractable headache documented in this encounter [facility] [employer] Phone: evaluation note* Diagnosis COVID-19- Primary Pneumonia of left lower lobe due to infectious organism Hypokalemia Hypopotassemia Hypomagnesemia Disorders of magnesium metabolism 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 documented in this encounter [employer] Phone: evaluation note* Diagnosis COVID- Primary Encephalopathy Encephalopathy, unspecified 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 Hypokalemia Hypopotassemia Primary hypertension Unspecified essential hypertension Type 2 diabetes mellitus with diabetic polyneuropathy ([facility]) Type II or unspecified type diabetes mellitus with neurological manifestations, not stated as uncontrolled Hypothyroidism Unspecified hypothyroidism Hypomagnesemia Disorders of magnesium metabolism CIDP (chronic inflammatory demyelinating polyneuropathy) ([facility]) Chronic inflammatory demyelinating polyneuritis Bacteremia MSSA (methicillin susceptible Staphylococcus aureus) septicemia ([facility]) Methicillin susceptible staphylococcus aureus septicemia Bandemia CRP elevated Elevated C-reactive protein (CRP) Metabolic encephalopathy Normocytic anemia Anemia, unspecified Acute respiratory failure with hypoxemia ([facility]) Septic arthritis of cervical spine ([facility]) Pyogenic arthritis, other specified sites Atlantoaxial instability Other joint derangement, not elsewhere classified, other specified site ACP (advance care planning) Other specified counseling Goals of care, counseling/discussion Other specified counseling Encounter for palliative care Feeding difficulties Feeding difficulties and mismanagement On tube feeding diet Pathological fracture of other site, unspecified pathological cause, initial encounter documented in this encounter [employer] Phone: evaluation noteNo assessment information available [facility] Work Phone: Evaluation note* Diagnosis Atlantoaxial instability Other joint derangement, not elsewhere classified, other specified site S/P cervical spinal fusion Arthrodesis status documented in this encounter [employer] Phone: evaluation note* Diagnosis S/P cervical spinal fusion Arthrodesis status documented in this encounter [employer] Phone: Assessments Diagnosis Calf ulcer, left, limited to breakdown of skin ([facility]) Type 2 diabetes mellitus wit h other skin ulcer, without long-term current use of insulin ([facility]) Diagnosis Type 2 diabetes mellitus wit hout [...] use of insulin Luis Miguel Kaur MD [address] [id number] History of Present Illness * Luis Miguel [...] a neurologist. 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 [...] FoundDocuments on File Type Date Recorded Patient Campus Police Officer Expl anation Advance Directives and Livin g Will 12/20/2019 3:00 PM Documents on File Type Date Recorded Patient Campus Police Officer Expl anation ACP-Advance Directive ACP-Power of [employer] Latest Code Status on File Code Status [...] Name Relationship Healthcare Agent Relationship Communication Hina Thomas Brother/Sister Primary Decision Maker Advance Directive Response Recorded Date/ Time Advance Directives No November 29, 2016 1:49pm Documents on File Type Date Recorded Patient Campus Police Officer Expl anation ACP-Advance Directive 08/13/2021 4:27 PM Latest Code Status on File Code Status Date Activated Date Inactivated Comments Full Code 08/22/2021 1:31 AM 09/28/2021 2:06 PM Full Code 07/14/2021 4:39 PM 08/11/2021 12:08 AM Healthcare Agents on File Name Relationship Healthcare Agent Relationship Communication Cheli Thomas Brother/Sister Primary Decision Maker Eun Candelaria Supplemental (Ot her) Decision Maker Healthcare Agents on File Name Relationship Healthcare Agent Relationship Communication Cheli Thomas Brother/Sister Primary Decision Maker Eun Candelaria Supplemental (Ot her) Decision Maker Healthcare Agents on File Name Relationship Healthcare Agent Relationship Communication Cheli Thomas Brother/Sister Primary Decision Maker Eun Candelaria Supplemental [...] be rechecked at the Emergency Department. [ [address] [place] [address] Services: [place] Office - [address] [address] - Phone Number [phone] [place] Office - [address] [facility] [address] - Phone Number [phone] ] Rest and limit exertion / strenous activity. RETURN if symptoms CHANGE, NOT IMPROVING or need help.Take Medications as prescribed (if prescribed - Please take or use as directed) * Attachments The following attachments cannot be sent through Care Everywhere. * Cellulitis ([place]izen [place]) in this encounter* Instructions* Andres Lubin MD [...] sent through Care Everywhere. * Nail Avulsion (Citizen [place]) documented in this encounter Additional Source Comments [...] [employer] Specialty Diagnoses / Procedures Referred By Jeramy t Referred To Contact Diagnoses CIDP (chronic inflammatory demyelinating polyneuropathy) Krystyna Busby, [facility] [id number] [place] [address] In[address] [facility] [address] [place] [address] Referral ID Status Reason Start Date Expiration Date V isits Requested Visits Authorized [id number] Auth Not Needed 06/24/2018 100 100 Reason Comments Follow-up Diabetes Thyroid Problem Reason Comments Infusion Visit [facility] Specialty Diagnoses / Procedures Referred By Contac t Referred To Contact Diagnoses CIDP (chronic inflammatory demyelinating polyneuropathy) Krystyna Busby [facility] [id number] [place] [address] [address] [facility] [address] [place] [address] Reason Comments Follow-up Reason Comments Glaucoma Follow-up Reason Comments Nausea Pt came from [facility]. Per EMS she was outside and was brought back inside they were unaware she was outside. Per [facility] she is having bizarre behavior Emesis Altered Mental Status Reason Comments Altered Mental Status Specialty Diagnoses / Procedures Referred By Jeramy t Referred To Contact Diagnoses Altered mental state [facility] Emergency Dept [address] [place] [address] [facility] [address] [place] [address] Referral ID Status Reason Start Date Expiration Date Visits Re quested Visits Authorized [id number] 1 1 Reason Comments Hypertension Patient was at [facility] center for blood transfusion/low potassium transferred to ED for evaluation INFORMATION SOURCE (unrecogn ized section and content) DATE CREATED AUTHOR 04/08/2018 [facility] DATE CREATED AUTHOR AUTHOR'S ORGANIZ ATION 06/07/2019 [facility] DATE CREATED AUTHOR AUTHOR'S ORGANIZ ATION 12/25/2019 [facility] DATE CREATED AUTHOR AUTHOR'S ORGANIZ ATION 02/13/2020 [facility] DATE CREATED AUTHOR AUTHOR'S ORGANIZ ATION 04/18/2021 [facility] DATE CREATED AUTHOR AUTHOR'S ORGANIZ ATION 05/02/2021 [facility] DATE CREATED AUTHOR AUTHOR'S ORGANIZ ATION 05/07/2021 [facility] DATE CREATED AUTHOR AUTHOR'S ORGANIZ ATION 05/09/2021 [facility] DATE CREATED AUTHOR AUTHOR'S ORGANIZ ATION 05/15/2021 [facility] DATE CREATED AUTHOR AUTHOR'S ORGANIZ ATION 06/01/2021 [facility] DATE CREATED AUTHOR AUTHOR'S ORGANIZ ATION 06/13/2021 [facility] DATE CREATED AUTHOR AUTHOR'S ORGANIZ ATION 09/05/2021 [facility] DATE CREATED AUTHOR AUTHOR'S ORGANIZ ATION 10/30/2021 [facility] DATE CREATED AUTHOR AUTHOR'S ORGANIZ ATION 11/27/2021 [facility] DATE CREATED AUTHOR AUTHOR'S ORGANIZ ATION 12/10/2021 [facility] DATE CREATED AUTHOR AUTHOR'S ORGANIZ ATION 11/25/2022 [facility] DATE CREATED AUTHOR AUTHOR'S ORGANIZ ATION 01/26/2023 [facility] DATE CREATED AUTHOR AUTHOR'S ORGANIZ ATION 08/20/2023 [facility] DATE CREATED AUTHOR AUTHOR'S ORGANIZ ATION 04/19/2024 [facility] Lindsey Bradshaw LPN - 05/29/2018 9:54 AM [...] Care Teams (unrecognized sec tion and content) Cylinder Filler Relationship Specialty Start Date End Date Neri Santa, DO [address] [place] [address] PCP - General Family Medicine 03/28/17 Pili Gilliam DPM Consulting Physician Podiatry 04/07/17 Reji Miramontes III, DO Consulting Physician Vascular Surgery 04/07/17 Cylinder Filler Relationship Specialty Start Date End Date Neri Santa, DO [address] [place] [address] PCP - General Family Medicine 03/28/17 Pili Gilliam, MARK Consulting Physician Podiatry 04/07/17 Reji Miramontes III, DO Consulting Physician Vascular Surgery 04/07/17 Cylinder Filler Relationship Specialty Start Date End Date Neri Santa, DO [address] [place] [address] PCP - General Family Medicine 03/28/17 Pili Gilliam, DPM Consulting Physician Podiatry 04/07/17 Reji Miramontes III, DO Consulting Physician Vascular Surgery 04/07/17 Cylinder Filler Relationship Specialty Start Date End Date Neri Santa, DO [address] [place] [address] PCP - General Family Medicine 03/28/17 Pili Gilliam, DP Consulting Physician Podiatry 04/07/17 Reji Miramontes III, DO Consulting Physician Vascular Surgery 04/07/17 Cylinder Filler Relationship Specialty Start Date End Date Neri Santa, DO [address] [place] [address] PCP - General Family Medicine 03/28/17 Pili Gilliam, DPM Consulting Physician Podiatry 04/07/17 Reji Miramontes III, DO Consulting Physician Vascular Surgery 04/07/17 Cylinder Filler Relationship Specialty Start Date End Date Neri Santa, DO [address] [place] [address] PCP - General Family Medicine 03/28/17 Pili Gilliam, DP Consulting Physician Podiatry 04/07/17 Reji Miramontes III, DO Consulting Physician Vascular Surgery 04/07/17 Cylinder Filler Relationship Specialty Start Date End Date Neri Santa, DO [address] [place] [address] PCP - General Family Medicine 03/06/17 Adilson Hernandez MD [address] [place] [address] Ophthalmology 07/18/17 Kartik Mejia MD [address] [place] [address] [place] [address] Pain Medicine 12/25/17 Tisha Arriaga MD [address] [place] [address] Neurologist Neurology 07/18/17 Luis Miguel Kaur MD [address] [place] [address] Radio Commentator Endocrinology, Diabetes & Metabolism 03/06/17 Chris Zavala, OD [address] [place] [address] Optometry 03/15/20 Cylinder Filler Relationship Specialty Start Date End Date Neri Santa DO [address] [place] [address] PCP - General Family Medicine 03/06/17 Adilson Hernandez MD [address] [place] [address] Ophthalmology 07/18/17 Kartik Mejia MD [address] [place] [address] Pain Medicine 12/25/17 Tisha Arriaga MD [address] [place] [address] Neurologist Neurology 07/18/17 Luis Miguel Kaur MD [address] [place] [address] Radio Commentator Endocrinology, Diabetes & Metabolism 03/06/17 Chris Zavala, OD [address] [place] [address] Optometry 03/15/20 Cylinder Filler Relationship Specialty Start Date End Date Neri Santa DO [address] [place] [address] PCP - General Family Medicine 03/06/17 Adilson Hernandez MD [address] [place] [address] Ophthalmology 07/18/17 Kartik Mejia MD [address] [place] [address] Pain Medicine 12/25/17 Tisha Arriaga MD [address] [place] [address] Neurologist Neurology 07/18/17 Luis Miguel Kaur MD [address] [place] [address] Radio Commentator Endocrinology, Diabetes & Metabolism 03/06/17 Chris Zavala, OD [address] [place] [address] Optometry 03/15/20 Cylinder Filler Relationship Specialty Start Date End Date Neri Santa, [address] [place] [address] PCP - General Family Medicine 03/06/17 Adilson Hernandez MD [address] [place] [address] Ophthalmology 07/18/17 Kartik Mejia MD [address] [place] [address] [place] [address] Pain Medicine 12/25/17 Tisha Arriaga MD [address] [place] [address] Neurologist Neurology 07/18/17 Luis Miguel Kaur MD [address] [place] [address] Radio Commentator Endocrinology, Diabetes & Metabolism 03/06/17 LucasChris, OD [address] [place] [address] Optometry 03/15/20 Cylinder Filler Relationship Specialty Start Date End Date Neri Santa, DO [address] [place] [address] PCP - General Family Medicine 03/06/17 Adilson Hernandez MD [address] [place] [address] Ophthalmology 07/18/17 Kartik Mejia MD [address] [place] [address] Pain Medicine 12/25/17 Tisha Arriaga MD [address] [place], [place] [address] Neurologist Neurology 07/18/17 Luis Miguel Kaur MD [address] [place] [address] Radio Commentator Endocrinology, Diabetes & Metabolism 03/06/17 Chris Zavala, OD [address] [place] [address] Optometry 03/15/20 Cylinder Filler Relationship Specialty Start Date End Date Neri Santa, DO [address] [place] [address] PCP - General Family Medicine 03/06/17 Adilson Hernandez MD [address] [place] [address] Ophthalmology 07/18/17 Kartik Mejia MD [address] [place] [address] Pain Medicine 12/25/17 Tisha Arriaga MD [address] [place] [address] Neurologist Neurology 07/18/17 Luis Miguel Kaur MD [address] [place] [address] Radio Commentator Endocrinology, Diabetes & Metabolism 03/06/17 Chris Zavala, OD [address] [place] [address] Optometry 03/15/20 Cylinder Filler Relationship Specialty Start Date End Date Neri Santa, DO [address] [place] [address] PCP - General Family Medicine 03/06/17 Adilson Hernandez MD [address] [place] [address] Ophthalmology 07/18/17 Kartik Mejia MD [address] [place] [address] Pain Medicine 12/25/17 Tisha Arriaga MD [address] [place] [address] Neurologist Neurology 07/18/17 Luis Miguel Kaur MD [address] [place] [address] Radio Commentator Endocrinology, Diabetes & Metabolism 03/06/17 Chris Zavala, OD [address] [place] [address] Optometry 03/15/20 Cylinder Filler Relationship Specialty Start Date End Date Sr Neri Santa DO [address] [place] [address] PCP - General Family Medicine 07/19/18 Cylinder Filler Relationship Specialty Start Date End Date Sr Neri Santa, DO [address] [place] [facility] [address] PCP - General Family Medicine 07/19/18 Cylinder Filler Relationship Specialty Start Date End Date Sr Arina Neri Elena, DO [address] [place] [address] PCP - General Family Medicine 07/19/18 Cylinder Filler Relationship Specialty Start Date End Date Sr Arina Neri Parker, DO [address] [place] [facility] [place] [address] PCP - General Family Medicine 07/19/18 Team Status: Inactive Member Role Status Dates Rufus Perez II MD Attending Provider Active Cylinder Filler Relationship Specialty Start Date End Date Ganga Savage MD [address] [place] [address] PCP - General Internal Medicine 08/14/21 Cylinder Filler Relationship Specialty Start Date End Date Ganga Savage MD [address] [place] [address] PCP - General Internal Medicine 08/14/21 Cylinder Filler Relationship Specialty Start Date End Date Ganga Savage MD [address] [place] [address] PCP - General Internal Medicine 08/14/21 Cylinder Filler Relationship Specialty Start Date End Date Neri Santa MD [address] [place] [address] PCP - General Family Medicine 08/12/22 Scheduled [...] - Provider: Kam Prado APRN - SUPERVISOR IRRIGATION) 0900 (Held - Provider: Sebas Arnold RN - Reason: Order parameters not met) 0900 (Held - Provider: Sebas Arnold RN - Reason: Order parameters not met) carvedilol (COREG) tablet 25 mg 25 mg, Oral, 2 TIMES DAILY WITH MEALS, First dose on Fri06/29/21 at 0800, Until Discontinued, Administer with food to minimize the risk of orthostatic hypotension 0813 (Given - Provider: Camilo Hernandez RN)1759 (Given - Provider: Camilo Hernandez RN) 0809 (Given - Provider: Sebas Arnold RN)1534 (Given [...] - Provider: Kam Prado APRN - SUPERVISOR IRRIGATION) 09 (Held - Provider: Sebas Arnold RN - Reason: Order parameters not met)1709 (Unheld by provider - Provider: Becki Chang MD) 0915 (Given - Provider: Sebas Arnold RN) fluconazole (DIFLUCAN) tablet 200 mg 200 mg, Oral, DAILY, 14 doses, First dose on Fri07/02/21 at 1430, Last dose on Fri07/15/21 at 0900, Antimicrobial Indications: Intra-Abdominal Infection 0813 (Given - Provider: Camilo Hernandez RN) 0809 (Given - Provider: Sebas Arnold RN) 0916 (Given - Provider: Sebas Arnold RN) gabapentin (NEURONTIN) capsule 200 mg 200 mg, Oral, 3 TIMES DAILY, First dose on Fri07/04/21 at 1500, Until Discontinued 0813 (Given - Provider: Camilo Hernandez RN)1257 (Given - Provider: Camilo Hernandez RN)2014 (Given - Provider: Maggi Quiñones RN) 0807 (Given - Provider: Sebas Arnold RN)1322 (Given - Provider: Sebas Arnold, VIRGIE)2028 (Given - Provider: Maggi Quiñones RN) 0914 (Given - Provider: Sebas Arnold RN)1407 (Given - Provider: Sebas Arnold, VIRGIE)2100 (Due - Provider: Rufus Argueta MD) insulin glargine (LANTUS) injection vial 16 Units 16 Units, SubCUTAneous, DAILY, First dose (after last modification) on Fri22 at 0900, Until Discontinued 0900 (Automatically Held) [...] 0-6 Units, SubCUTAneous, NIGHTLY, First dose on Nohemy 06/28/21 at 2100, Until Discontinued, If continuous tube [...] 12 hours in any 24 hour period. 08 (Patch Applied - Provider: Camilo Hernandez RN)2017 (Patch Removed - Provider: Maggi Quiñones RN) 08 (Patch Applied - Provider: Sebas Arnold RN)2026 (Patch Removed - Provider: Maggi Quiñones RN) 0915 (Patch Applied - Provider: Sebas Arnold RN)2114 [...] Camilo Hernandez RN)0950 (Stopped - Provider: Camilo Hernandez, VIRGIE)1254 (New Bag - Provider: Camilo Hernandez RN)1256 (Stopped - Provider: Camilo Hernandez RN)1758 (New Bag - Provider: Camilo Hernandez RN)1811 (Stopped - Provider: Camilo Hernandez RN)2018 (New Bag - Provider: Maggi Quiñones [...] Quiñones RN)0935 (New Bag - Provider: Sebas Arnold, VIRGIE)0935 (Canceled Entry - Provider: Sebas Arnold RN)1030 (Stopped - Provider: Sebas Arnold RN)1130 (Canceled Entry - Provider: Sebas Arnold RN)1135 (New Bag - Provider: Sebas Arnold RN)1233 (Stopped - Provider: Sebas Arnold, VIRGIE)1600 (Due [...] 40 mEq, Oral, ONCE, 1 dose, On 07/08/21 at 0900, Do not crush, chew, or suck on tablet. Tablet may also be broken in half and each half swallowed separately. 1255 (Canceled Entry - Provider: Camilo Hernandez RN) potassium chloride 10 mEq/100 mL IVPB (Peripheral Line) () 10 mEq, IntraVENous, EVERY HOUR, 4 doses, First dose on 07/08/21 at 0800, Last dose on Fri07/08/21 at [...] Discontinued, Post-op 0813 (Not Given - Provider: Camiol Hernandez RN - Reason: Other)2012 (Not Given [...] Quiñones RN - Reason: IV Fluid Infusing) 916 (Given - Provider: Sebas Arnold RN)2099 (Due [...] 09 (Given - Provider: Sebas Arnold RN)2099 (Due) valproic acid (DEPAKENE) 250 MG/5ML oral solution 250 mg 250 mg, Oral, 2 times daily, First dose on Fri07/03/21 at 1515, Until Discontinued 0814 (Given - Provider: Camilo Hernandez RN)2116 (Given - Provider: Maggi Quiñones RN) 0807 (Given - Provider: Sebas Arnold, VIRGIE)2027 (Given - Provider: Maggi Quiñones RN) 0914 (Given - Provider: Sebas Arnold, VIRGIE)2100 (Due) Continuous Medication Order 07/08/2021 07/09/2021 07/10/2021 0.9 % sodium chloride infusion IntraVENous, at 100 mL/hr, CONTINUOUS, Starting on Fri07/05/21 at 1945 2246 (New Bag - Provider: Maggi Quiñones RN) 1838 (New Bag - Provider: Sebas Arnold, VIRGIE) 1406 (New Bag - Provider: Sebas Arnold [...] patient NOT ALERT or NPO, Starting on Fri06/28/21 at 1616, If patient does not respond [...] system. 1308 (New Bag - Provider: Sebas Arnold, VIRGIE)1317 (Stopped - Provider: Sebas Arnold, RN) dextrose bolus 10% 250 mL(Linked Group [...] Arnold RN)1317 (See Alternative - Provider: Sebas Arnodl, RN) glucagon (rDNA) injection 1 mg 1 mg, IntraMUSCular, PRN, Starting on Fri06/28/21 at 1617, Until Discontinued, Low blood sugar, Blood glucose less than 70 mg/dL and patient NOT ALERT or NPO and does not have IV access., After administration, attempt intravenous access and start D5W at 100 mL/hr. Repeat blood glucose in 15 minutes x2 and notify provider. glucose chewable tablet 16 g 16 g (4 tablet), Oral, PRN, Starting on Fri06/28/21 at 1616, Until Discontinued, Low blood sugar, [...] loose stool. 0808 (Given - Provider: Sebas Arnold, RN) 0915 (Given - Provider: Sebas Arnold, RN) morphine (PF) injection 1 mg 1 [...] Hernandez RN) 0522 (Given - Provider: Maggi Quiñones RN)1533 (See Alternative - Provider: Sebas Arnold, VIRGIE) oxyCODONE (ROXICODONE) immediate release tablet 5 mg(Linked Group 3) 5 mg, Oral, EVERY 4 HOURS PRN, Starting on Fri07/06/21 at 2217, Until Discontinued, Pain Moderate (4-6) 1348 (See Alternative - Provider: Camilo Hernandez RN) 0522 (See Alternative - Provider: Maggi Quiñones RN)1533 (Given - Provider: Sebas Arnold RN) potassium chloride 10 mEq/100 mL IVPB [...] mL 10 mL, IntraVENous, PRN, Starting on 07/03/21 at 1250, Until Discontinued, Line Care sodium chloride flush 0.9 % injection 10 mL 10 mL, IntraVENous, PRN, Starting on 07/04/21 at 1932, Until Discontinued, Line Care sodium [...] IntraVENous, PRN, Starting on Nohemy 06/28/21 at 2107, Until Discontinued, Line Care, [...] mL, IntraVENous, PRN, Starting on Fri06/28/21 at 1354, Until Discontinued, Line Care, After [...] Muscle spasms 0808 (Given - Provider: Sebas Arnold RN) [...] Marie RN) 0007 (Stopped - Provider: Bassam Camacho, VIRGIE) HYDROcodone-acetaminophen (NORCO) 5-325 MG per tablet 1 [...] Bassam Camacho, VIRGIE)0035 (Stopped - Provider: Bassam Camacho, VIRGIE) piperacillin-tazobactam (ZOSYN) 3,375 mg in dextrose 5 [...] 40 mEq, Oral, ONCE, 1 dose, On Fri07/13/21 at 2130, Do not chew or crush. [...] 325 mg, Oral, DAILY, First dose on Fri07/16/21 at 1300, Until Discontinued 0900 (Automatically Held) 0900 (Automatically Held) 0900 (Automatically Held) calcium carbonate-vitamin D3 (CALTRATE) 600-400 MG-UNIT per tab 2 tablet 2 tablet, Oral, DAILY, First dose on Fri22 at 1245, Until Discontinued 1200 (Automatically Held) [...] RN) 0821 (Given - Provider: Anna Veliz, VIRGIE)1721 (Given - Provider: Anna Veliz RN) chlordiazePOXIDE (LIBRIUM) capsule 10 mg (CANCELED) 10 mg, Oral, 3 TIMES DAILY, First dose on 08/05/21 at 1400, Until Discontinued 0851 (Given - Provider: Alejandra Goldberg RN) chlordiazePOXIDE (LIBRIUM) capsule 5 mg 5 mg, Oral, 2 times daily, First dose (after last modification) on Fri08/08/21 at 1200, Until Discontinued 1241 (Given - Provider: Alejandra Goldberg RN)2051 (Given - Provider: Maggi Multani RN) 0807 (Given - Provider: Yolanda De La Fuente RN)2033 (Given - Provider: Lubna Peralta RN) 0820 (Given - Provider: Anna Veliz, VIRGIE)2009 (Given - Provider: Lubna Peralta RN) enoxaparin (LOVENOX) injection 40 mg 40 mg, SubCUTAneous, DAILY, First dose (after last modification) on 07/14/21 at 1745, Until Discontinued, Indication of Use: Prophylaxis-DVT/PE 0851 (Given - Provider: Alejandra Goldberg RN) 0800 (Given - Provider: Yolanda De La Fuente RN) 0821 (Given - Provider: Anna Veliz RN) famotidine (PEPCID) tablet 20 mg 20 mg, Per NG tube, 2 TIMES DAILY, First dose on Nohemy 08/02/21 at 2100, Until Discontinued, IV to PO change per P&T policy 0850 (Given - Provider: Alejandra Goldberg RN)2051 (Given - Provider: Maggi Multani RN) 08 (Given - Provider: Yolanda De La Fuente RN)2048 (Given - Provider: Lubna Peralta RN) 0821 (Given - Provider: Anna Veliz RN)2021 (Given - Provider: Lubna Peralta RN) gabapentin (NEURONTIN) capsule 200 mg 200 mg, Oral, 3 TIMES DAILY, First dose on Fri07/19/21 at 0900, Until Discontinued 0850 (Given - Provider: Alejandra Goldberg RN)1558 (Given - Provider: Alejandra Goldberg RN)2051 (Given - Provider: Maggi Multani RN) 1030 (Given - Provider: Yolanda De La Fuente RN)1610 (Given - Provider: Yolanda De La Fuente RN)220 (Given - Provider: Lubna Peralta RN) 1014 (Given - Provider: Anna Veliz RN)1517 (Given - Provider: Anna Veliz RN)2199 (Due - Provider: Linn Duvall [facility]) insulin glargine (LANTUS) injection vial 10 Units [...] Goldberg RN)1601 (Given - Provider: Alejandra Goldberg RN)2104 (Given - Provider: Maggi Multani RN) 0250 (Not Given - Provider: Maggi Multani RN - Reason: Order parameters not met)0812 (Given - Provider: Yolanda De La Fuente RN - Comment: bs 202)1653 (Given - Provider: Yolanda De La Fuente RN)204 (Given - Provider: Lubna Peralta, VIRGIE) 0318 (Not Given - Provider: Lubna Peralta RN [...] Goldberg RN) 0612 (Given - Provider: Maggi Multani, RN) 0559 (Given - Provider: Lubna Peralta RN) metoclopramide (REGLAN) injection 5 mg (CANCELED) 5 mg, IntraVENous, EVERY 6 HOURS, First dose on Fri08/04/21 at 1600, Until Discontinued 0444 (Given - [...] Goldberg RN)1611 (Rate/Dose Verify - Provider: Alaina Funes RN)1708 (Stopped - Provider: Alaina Funes, VIRGIE)1711 (Stopped - Provider: Alejandra Goldberg RN)2207 (New Bag - Provider: Maggi Multani RN)2307 (Stopped - Provider: Maggi Multani, VIRGIE) 0343 (New Bag - Provider: Maggi Multani [...] Nany Newman RN)0850 (Given - Provider: Alejandra Goldberg, RN)1400 (Not Given - Provider: Alejandra Goldberg RN - Reason: Other - Comment: Not given due to recent prn given)2051 (Given - Provider: Maggi Multani RN) 0251 (Given - Provider: Maggi Multani, VIRGIE - Comment: hypotension)0807 (Given - Provider: Yolanda De La Fuente RN)1419 (Given - Provider: Yolanda De La Fuente RN)2033 (Given - Provider: Lubna Peralta RN) 0212 (Given - Provider: Lubna Peralta RN)0820 (Given - Provider: Anna Veliz RN)1424 (Given - Provider: Anna Veliz RN)2009 (Given [...] 2199 (Due - Provider: Linn Duvall [facility]) valproic acid (DEPAKENE) 250 MG/5ML oral solution 250 mg 250 mg, Per NG tube, 2 TIMES DAILY, First dose on Fri08/02/21 at 2100, Until Discontinued 0859 (Given - Provider: Alejandra Goldberg RN)2051 (Given [...] RN)1910 (Rate/Dose Verify - Provider: Anna Veliz RN) dexmedetomidine (PRECEDEX) 400 mcg in sodium chloride [...] Fuente RN)1925 (Handoff - Provider: Alejandra Goldberg RN)2031 (Rate/Dose Verify - Provider: Yolanda De La Fuente RN)2032 (Rate/Dose Verify - Provider: Yolanda De La Fuente RN)2112 (Rate/Dose Verify - Provider: Yolanda De La Fuente RN)2113 (Rate/Dose Verify - Provider: Yolanda De La [...] (Handoff - Provider: Yolanda De La Fuente RN)1999 (Rate/Dose Verify - Provider: Lubna Peralta RN) 0335 (New Bag - Provider: Lubna Peralta RN)0407 (Rate/Dose Verify - Provider: Lubna Peralta RN)0623 (Rate/Dose Verify - Provider: Lubna Peralta RN)0727 (Handoff - Provider: Lubna Peralta RN)0747 (Rate/Dose Verify - Provider: Lubna Peralta RN)1258 (Rate/Dose Verify - Provider: Anna Veliz RN)1544 (Rate/Dose Verify - Provider: Anna Veliz RN)1909 (Handoff - Provider: Anna Veliz RN)191 (Rate/Dose Verify - Provider: Anna Veliz RN)203 (New Bag - Provider: Lubna Peralta RN) [...] 10 mg, Rectal, DAILY PRN, Starting on 07/29/21 at 0614, Until Discontinued, Constipation dextrose 5 [...] Newman, RN)1554 (Given - Provider: Alejandra Goldberg, RN)2236 (Given - Provider: Maggi Multani, VIRGIE) 1119 (Given - Provider: Yolanda De La Fuente, VIRGIE)1715 (Given - Provider: Yolanda De La Fuente, VIRGIE) 0050 (Given - Provider: Lubna Peralta RN) magnesium hydroxide (MILK OF MAGNESIA) 400 MG/5ML [...] 07/14/21 at 1639, Until Discontinued, Nausea, Vomiting potassium [...] mL 5-40 mL, IntraVENous, PRN, Starting on Fri07/14/21 at 1639, Until Discontinued, Line Care, After [...] Sig Dispensed Refills Start Date End Da te lactobacillus (CULTURELLE) capsule Take 1 capsule by [...] the iv AB is over - keep dentist/owner suppression 60 tablet 11 07/09/2021 07/09/2021 Prescription Sig Dispensed Refills Start Date End Da te oxyCODONE (ROXICODONE) 5 MG immediate release tabletIndications:A [...] BE BASED ON THE PRIMARY CLINICAL RECORDS. [employer] provides no warranty or guarantee of the accuracy or completeness of information in this document.
--- NOTE | 2024-05-03 22:50 | PC.NURSE ---
per Dr Schmidt have this patient walk and she need to go to restroom. so i got the walker and went to this patient's room. i informed i have a walker so you can go to the restroom. this patient did walk to the restroom with the walker, and now back to the room. this patient did voices concern of dizziness on her walk back to the room. I did inform Dr Schmidt of this dizziness from this patient while walking back to the restroom.
--- NOTE | 2024-05-03 22:56 | PC.NURSE ---
this patient was informed that [facility] will be in a 1 hour to take you back this patient said thank you, and voices no concerns and shows no signs of distress
--- NOTE | 2024-05-03 23:34 | PC.NURSE ---
i gave this patient verbal and written discharge orders and this patient voices yes to understanding these. at time of discharge this patient voices no concerns and shows no signs of distress
== END 2024-05-03 23:36 | disposition home or self-care (01) ==
PROVIDERS: Emergency Provider Emergency Medicine; PCP Family Medicine
DX: S13.4XXA Sprain of ligaments of cervical spine, initial encounter (principal); W01.0XXA Fall on same level from slipping, tripping and stumbling without subsequent striking against object, initial encounter; Z79.82 Long term (current) use of aspirin; S80.212A Abrasion, left knee, initial encounter; S80.812A Abrasion, left lower leg, initial encounter; S40.021A Contusion of right upper arm, initial encounter
CPT/HCPCS: 70450; 72125; 72170; 73060; 73590; 96374; 96375; 99285; J2360; J2405; J3010

== ENCOUNTER 2024-07-20 14:20 | Outpatient (OUT) | payer MEDICARE, OTHER, MEDICAID, SELFPAY ==
--- OUTSIDE RECORDS SUMMARY | 2005-04-04 10:35 | XMS_ITS | Continuity of Care Document ---
Author Name [facility] Organization [facility] Care Team Providers Care Non Licensed Operator Name Role Phone [facility] Unavailable Unavailable Problems Combined list of problems [...] By: Jossie MARTIN Comment: severe axonal/demy elinative [facility] Peripheral Neuropathy (ICD-9-CM 355.9) Active Condition [place] [...] adverse reactions to drug (finding) active 6 [facility] GLUCOCORTICOI DS Propensity to adverse reactions to drug (finding) active 5 [facility] NEOSPORIN Propensity to adverse reactions to drug (finding) active 6 [facility] Immunizations Combined list of available immunizations from the Department of Defense and Veterans Affairs facilities. Immunization Series Date Given Administered By Site Reaction Lot Number CVX Code Drug Bakery Worker Status Comments Source PNEUMOCOCCAL, UNSPECIFIED FORMULATION 2004 109 complet ed [facility] INFLUENZA, UNSPECIFIED FORMULATION 2003 88 complet ed [facility] Social History Combined list of [...]
--- OUTSIDE RECORDS SUMMARY | 2023-09-01 06:43 | XMS_ITS | Continuity of Care Document ---
Author Organization [address] [place] [address] Address [address] [place] [address] Care Team Providers Care Shredder Picker Name Role Phone Garfield Damon OD Unavailable Unavailable Allergies, Adverse Reactions, Alerts Substance Reaction Status Criticality MOXIFLOXACIN HCL Active No Informat ion cephalexin Active No Information moxifloxacin Active No Information tapentadol Active No Information Medications Medication Instructions Dosage Effective Dates (start - stop) Status Comments levothyroxine 100 mcg tablet - Active sucralfate 1 gram tablet - A ctive potassium chloride ER 20 mEq tablet,extended release - Active Lantus Solostar U-100 Insuli n 100 unit/mL (3 mL) subcutaneous pen - Active divalproex ER 500 mg tablet,extended release 24 hr - Active omeprazole 40 mg capsule,delayed release - Active duloxetine 60 mg capsule,delayed release - Active methylprednisolone 4 mg tablets in a dose pack - Active azithromycin 250 mg tablet - Active brimonidine 0.2 % eye drops - Active divalproex 250 mg tablet,delayed release - Active gabapentin 300 mg capsule - Active triamcinolone acetonide 0.1 % topical cream - Active albuterol sulfate 2.5 mg/3 m L (0.083 %) solution for nebulization - Active divalproex 500 mg tablet,delayed release - Active prednisone 20 mg tablet - Ac tive potassium chloride ER 20 mEq tablet,extended release(part/cryst) - Active hydrocodone 5 mg-acetaminophen 325 mg tablet - Active insulin glargine-yfgn (U-100 ) 100 unit/mL (3 mL) subcutaneous pen - Active duloxetine 30 mg capsule,delayed release - Active ondansetron HCl 4 mg tablet - Active quetiapine 25 mg tablet - Ac tive metoclopramide 5 mg tablet - Active quetiapine 50 mg tablet - Ac tive sucralfate 100 mg/mL oral suspension - Active pantoprazole 40 mg tablet,delayed release - Active levothyroxine 100 mcg capsule - Active carvedilol 12.5 mg tablet - Acti ve Problems Condition Type Effective Dates (start - stop) Clini yamile Status Comments No Known Problems Procedures Procedure Date DETERMINE REFRACTIVE STATE FIT SPECTACLES BIFOCAL DEBRIDE NAIL 1-5 Trim nail(s) NURSING FAC CARE SUBSEQ EYE EXAM WITH PHOTOS COMPRE OPH EXAM EST PT 1/> NURSING FAC CARE SUBSEQ COMPREHENSIVE HEARING TEST PARING/CUTG B9 HYPRKER LES 1 DEBRIDE NAIL 1-5 DEBRIDE NAIL 1-5 Trim nail(s) REMOVE IMPACTED EAR WAX EYE EXAM & TREATMENT DEBRIDE NAIL 1-5 TRIM NAIL(S) Warranty Replacement #1 DEBRIDE NAIL 1-5 COMPREHENSVE ORAL EVALUATION INTRAOR COMPLETE FILM SERIES DENTAL PROPHYLAXIS ADULT Silver Diamine Flouride Treatment Silver Diamine Flouride Treatment FIT SPECTACLES BIFOCAL REFRACTION REMOVE IMPACTED EAR WAX EYE EXAM WITH PHOTOS EYE EXAM NEW PATIENT Advance Directives Directive Yes / No Effective Date File Name No Information Encounters Encounter Description Practice Location Reason(s) For Visit Diagnoses Date Provider Providers Copied on Encounter [facility] [address], [id number] , [facility] Presbyopia [address] [place]. [address] [facility] [address], [place], [place], [id number], . tel:[phone] NURSING FAC CARE SUBSEQ [facility] [address], [id number] , [facility] Acquired absence of other left toe(s)Corns and callositiesOther specified peripheral vascular diseasesNail dystrophyTinea unguiumType 1 diabetes mellitus with diabetic neuropathy, unspecifiedLong term (current) use of insulinPressure ulcer of other site, stage 1Long term (current) use of oral hypoglycemic drugs 4 [place]. Referring Provider: Nam Schreiber. [facility] [address] [address], [place], [place], [id number] , [facility] Glaucoma (chief complaint) Type 2 diabetes mellitus with moderate nonproliferative diabetic retinopathy with macular edema, bilateralPrimary open-angle glaucoma, bilateral, indeterminate stage 4 [place]. [address] [facility] [address], [place], [place], [address], [place]. tel:[phone] Referring Provider: Lalitha Barroso. NURSING FAC CARE SUBSEQ [facility] [address], [id number] , [facility] impacted cerumen, ear care exam (chief complaint) Sensorineural hearing loss, bilateral 4 Reji Gaviria. [address] [facility] [address], [place], [id number], [place]. tel:[phone] Referring Provider: Lalitha Barroso. [facility] [address] [facility], [place], [place], [id number] , [facility] No Information 4 Reji BennettKhadra. [address] [facility] [address], [place], [place], [id number], . tel:[phone] [facility] [address] [facility], [place], [place], [id number] , [facility] Sensorineural hearing loss, unilateral, left ear, with restricted hearing on the contralateral sideTinnitus, bilateral 4 Billy [place]. , [place]. Referring Provider: Lalitha Barroso. [facility] [address] [address], [place], [place], [id number] , [facility] Acquired absence of other left toe(s)vermin exterminator (current) use of oral hypoglycemic drugsNail dystrophyOther specified peripheral vascular diseasesTinea unguiumType 2 diabetes mellitus with diabetic neuropathy, unspecifiedXeros is cutisCorns and callosities 4 [place]. , [place]. Referring Provider: Lalitha Barroso. [facility] [address] [facility], [place], [place], [id number] , [facility] Acquired absence of other left toe(s)vermin exterminator (current) use of oral hypoglycemic drugsNail dystrophyOther specified peripheral vascular diseasesTinea unguiumType 2 diabetes mellitus with diabetic neuropathy, unspecifiedXeros is cutis 4 Abner Se[place]. , [place]. Referring Provider: Lalitha Barroso. [facility] [address], [place], [place], [id number] , [facility] ear care exam, impacted cerumen (chief complaint) Impacted cerumen, bilateral 4 Tien Thomas. , [place]. Referring Provider: Lalitha Barroso. [facility] [address], [place], [place], [id number] , [facility] Diabetic eye exam (chief complaint) Type 2 diabetes mellitus with moderate nonproliferative diabetic retinopathy with macular edema, bilateralPrimary open-angle glaucoma, bilateral, indeterminate stage Dec-2 1-202 3 [place]. [address] [facility] [address], [place], [place], [id number], [place]. tel:[phone] Referring Provider: Lalitha Barroso. [facility] [address] [address], [place], [place], [id number] , [facility] Tinea unguiumType 2 diabetes mellitus with diabetic neuropathy, unspecifiedLong term (current) use of oral hypoglycemic drugsAcquired absence of other left toe(s)Nail dystrophyXerosis cutisOther specified peripheral vascular diseases 3 Abner [place] , [place]. Referring Provider: Tobias Perez. [facility] [address] [address], [place], [place], [id number] , [facility] Presbyopia [address] [place]. [address] [facility] [address], [place], [place], [address], . tel:[phone] [facility] [address] [address], [place], [place], [id number] , [facility] Type 2 diabetes mellitus with diabetic neuropathy, unspecifiedLong term (current) use of oral hypoglycemic drugsTinea unguium 3 Aidan Lindquist. . Referring Provider: Tobias Perez. [facility] [address] [address], [place], [place], [id number] , [facility] Encounter for dental examination and cleaning without abnormal findings 3 Rakesh Moya. , [place]. Referring Provider: Tobias Perez. [facility] [address], [place], [place], [id number] , [facility] Presbyopia 3 [place]. [address] [facility] [address], [place], [place], [address], [place]. tel:[phone] [facility] [address], [place], [place], [id number] , [facility] ear care exam, impacted cerumen (chief complaint) Impacted cerumen, bilateral 3 Tien Joy[place] , [place]. Referring Provider: Tobias Perez. [facility] [address] [address], [place], [place], [id number] , [place] [facility] Diabetic eye exam (chief complaint) Type 2 diabetes mellitus with moderate nonproliferative diabetic retinopathy with macular edema, bilateralPrimary open-angle glaucoma, bilateral, indeterminate stage 3 [place]. [address], [address], [place], [place], [address], [place]. tel:[phone] Referring Provider: Tobias Perez. Family History Family Member Type Diagnosis Age At Onset No Information Payers Payer name Insurance type Covered green party ID Authoriza tion(s) Medicaid [facility] [id number] Social History Type Description Quantity Date Captured Comments Sex Female Smoking Status No Information Chief Complaint And Reason For Visit No Information Reason For Referral Reason For Referral No Information Plan Of Treatment Date Type Action Status Goal Lipid panel. Due on due Goal Depression screening. Due on due Goal Influenza vaccine. Due on due Goal Pneumococcal vaccine. Due on due Goal Zoster vaccine (). Due on due Goal FOBT. Due on due Goal Hepatitis C screening. Due o n due Goal Td vaccine. Due on due Goal HPV. Due on due Goal HPV screening. Due on due Goal Unhealthy drug u se screening. Due on due Goal Colonoscopy. Due on due Goal Mammogram. Due on due Goal PAP. Due on due Goal Tdap. Due on due Goal Dental exam. Due on due Goal GFR. Due on due Goal ASCVD 10 year risk. Due on due Goal Dilated eye exam. Due on Aug due Goal Urine microalbumin. Due on due Goal Foot exam. Due on due Goal Hemoglobin A1C. Due on due Goal Lipid panel. Due on due Goal Pneumococcal vaccine. Due on due Goal Depression screening. Due on due Goal Influenza vaccine. Due on due Goal Unhealthy drug u se screening. Due on due Goal Hepatitis C screening. Due o n due Goal Tdap. Due on due Goal Zoster vaccine (). Due on due Goal Mammogram. Due on due Goal PAP. Due on due Goal HPV. Due on due Goal Td vaccine. Due on due Goal Colonoscopy. Due on due Goal FOBT. Due on due Goal HPV screening. Due on due Goal GFR. Due on due Goal Foot exam. Due on due Goal ASCVD 10 year risk. Due on due Goal Urine microalbumin. Due on due Goal Dental exam. Due on due Goal Dilated eye exam. Due on Aug due Goal Hemoglobin A1C. Due on due Goal HPV. Due on due Goal Influenza vaccine. Due on due Goal Depression screening. Due on due Goal Pneumococcal vaccine. Due on due Goal Lipid panel. Due on due Goal HPV screening. Due on due Goal Hepatitis C screening. Due o n due Goal FOBT. Due on due Goal Td vaccine. Due on due Goal Mammogram. Due on due Goal Tdap. Due on due Goal PAP. Due on due Goal Zoster vaccine (). Due on due Goal Colonoscopy. Due on due Goal Unhealthy drug u se screening. Due on due Goal Hemoglobin A1C. Due on due Goal GFR. Due on due Goal ASCVD 10 year risk. Due on due Goal Foot exam. Due on due Goal Dilated eye exam. Due on Jul due Goal Dental exam. Due on due Goal Urine microalbumin. Due on due Goal Lipid panel. Due on due Goal Depression screening. Due on due Goal Pneumococcal vaccine. Due on due Goal Influenza vaccine. Due on due Goal Dental exam. Due on due Goal Foot exam. Due on due Goal Hemoglobin A1C. Due on due Goal Dilated eye exam. Due on Jul due Goal Urine microalbumin. Due on due Goal ASCVD 10 year risk. Due on due Goal GFR. Due on due Goal Zoster vaccine (). Due on due Goal PAP. Due on due Goal Unhealthy drug u se screening. Due on due Goal Tdap. Due on due Goal Mammogram. Due on due Goal Hepatitis C screening. Due o n due Goal Td vaccine. Due on due Goal Colonoscopy. Due on due Goal FOBT. Due on due Goal HPV screening. Due on due Goal Hemoglobin A1C. Due on due Goal Dental exam. Due on due Goal Foot exam. Due on due Goal ASCVD 10 year risk. Due on due Goal Dilated eye exam. Due on June due Goal GFR. Due on due Goal Urine microalbumin. Due on due Goal Depression screening. Due on due Goal Influenza vaccine. Due on Ma due Goal Lipid panel. Due on due Goal Pneumococcal vaccine. Due on due Goal HPV screening. Due on due Goal PAP. Due on due Goal HPV. Due on due Goal Unhealthy drug u se screening. Due on due Goal Colonoscopy. Due on due Goal Tdap. Due on due Goal Zoster vaccine (). Due on due Goal FOBT. Due on due Goal Hepatitis C screening. Due o n due Goal Td vaccine. Due on due Goal Mammogram. Due on due Goal Depression screening. Due on due Goal Pneumococcal vaccine. Due on due Goal Lipid panel. Due on due Goal Influenza vaccine. Due on due Goal HPV screening. Due on due Goal PAP. Due on due Goal Hepatitis C screening. Due o n due Goal HPV. Due on due Goal Mammogram. Due on due Goal FOBT. Due on due Goal Zoster vaccine (1st). Due on due Goal Hemoglobin A1C. Due on due Goal GFR. Due on due Goal Dilated eye exam. Due on June due Goal Foot exam. Due on due Goal Urine microalbumin. Due on due Goal Dental exam. Due on due Goal ASCVD 10 year risk. Due on due Goal Colonoscopy. Due on due Goal Tdap. Due on due Goal Td vaccine. Due on due Goal Unhealthy drug u se screening. Due on due Goal Pneumococcal vaccine. Due on due Goal Depression screening. Due on due Goal Lipid panel. Due on due Goal Influenza vaccine. Due on due Goal Hepatitis C screening. Due o n due Goal Colonoscopy. Due on due Goal Td vaccine. Due on due Goal HPV. Due on due Goal HPV screening. Due on due Goal PAP. Due on due Goal Tdap. Due on due Goal FOBT. Due on due Goal Unhealthy drug u se screening. Due on due Goal Mammogram. Due on due Goal Zoster vaccine (). Due on due Goal ASCVD 10 year risk. Due on due Goal Dental exam. Due on due Goal Hemoglobin A1C. Due on due Goal GFR. Due on due Goal Dilated eye exam. Due on Apr due Goal Urine microalbumin. Due on due Goal Foot exam. Due on due Goal Depression screening. Due on due Goal Influenza vaccine. Due on due Goal Lipid panel. Due on due Goal Pneumococcal vaccine. Due on due Goal HPV screening. Due on due Goal HPV. Due on due Goal FOBT. Due on due Goal Tdap. Due on due Goal Mammogram. Due on due Goal PAP. Due on due Goal Unhealthy drug u se screening. Due on due Goal Hepatitis C screening. Due o n due Goal Colonoscopy. Due on due Goal Zoster vaccine (). Due on due Goal Td vaccine. Due on due Goal Dental exam. Due on due Goal ASCVD 10 year risk. Due on due Goal Dilated eye exam. Due on Feb due Goal Hemoglobin A1C. Due on due Goal Urine microalbumin. Due on due Goal GFR. Due on due Goal Foot exam. Due on due Goal Dilated eye exam. Due on Jan due Goal Urine microalbumin. Due on due Goal GFR. Due on due Goal Foot exam. Due on due Goal Dental exam. Due on due Goal ASCVD 10 year risk. Due on due Goal Hemoglobin A1C. Due on due Goal FOBT. Due on due Goal HPV screening. Due on due Goal Tdap. Due on due Goal Td vaccine. Due on due Goal Zoster vaccine (1st). Due on due Goal PAP. Due on due Goal Hepatitis C screening. Due o n due Goal Unhealthy drug u se screening. Due on due Goal Depression screening. Due on due Goal Lipid panel. Due on due Goal Pneumococcal vaccine. Due on due Goal Influenza vaccine. Due on due Goal Colonoscopy. Due on due Goal Mammogram. Due on due Goal HPV. Due on due Goal Influenza vaccine. Due on due Goal Pneumococcal vaccine. Due on due Goal Depression screening. Due on due Goal Urine microalbumin. Due on due Goal Dilated eye exam. Due on Jan due Goal ASCVD 10 year risk. Due on due Goal Hemoglobin A1C. Due on due Goal Dental exam. Due on due Goal GFR. Due on due Goal Foot exam. Due on due Goal Lipid panel. Due on due Goal Mammogram. Due on due Goal Hepatitis C screening. Due o n due Goal Tdap. Due on due Goal FOBT. Due on due Goal Zoster vaccine (1st). Due on due Goal Td vaccine. Due on due Goal Unhealthy drug u se screening. Due on due Goal HPV. Due on due Goal HPV screening. Due on due Goal PAP. Due on due Goal Colonoscopy. Due on due Goal Foot exam. Due on due Goal Dilated eye exam. Due on Nov due Goal GFR. Due on due Goal Lipid panel. Due on due Goal Influenza vaccine. Due on Oc due Goal Pneumococcal vaccine. Due on due Goal Depression screening. Due on due Goal Colonoscopy. Due on due Goal Unhealthy drug u se screening. Due on due Goal Tdap. Due on due Goal FOBT. Due on due Goal HPV. Due on due Goal PAP. Due on due Goal Td vaccine. Due on due Goal Zoster vaccine (). Due on due Goal Mammogram. Due on due Goal HPV screening. Due on due Goal Hepatitis C screening. Due o n due Goal ASCVD 10 year risk. Due on O due Goal Hemoglobin A1C. Due on due Goal Urine microalbumin. Due on O due Goal Dental exam. Due on due Goal Lipid panel. Due on due Goal Influenza vaccine. Due on due Goal Depression screening. Due on due Goal Pneumococcal vaccine. Due on due Goal FOBT. Due on due Goal HPV. Due on due Goal Tdap. Due on due Goal Unhealthy drug u se screening. Due on due Goal Zoster vaccine (). Due on due Goal HPV screening. Due on due Goal Mammogram. Due on due Goal PAP. Due on due Goal Hepatitis C screening. Due o n due Goal Colonoscopy. Due on due Goal Foot exam. Due on due Goal Dilated eye exam. Due on Sep due Goal GFR. Due on due Goal ASCVD 10 year risk. Due on A due Goal Urine microalbumin. Due on A due Goal Dental exam. Due on due Goal Hemoglobin A1C. Due on due Goal Td vaccine. Due on due Goal Depression screening. Due on due Goal Lipid panel. Due on 023 due Goal Influenza vaccine. Due on due Goal Pneumococcal vaccine. Due on due Goal Tdap. Due on due Goal HPV screening. Due on due Goal Mammogram. Due on due Goal Unhealthy drug u se screening. Due on due Goal Td vaccine. Due on due Goal Hepatitis C screening. Due o n due Goal HPV. Due on due Goal FOBT. Due on due Goal Colonoscopy. Due on due Goal Zoster vaccine (1st). Due on due Goal PAP. Due on due Goal Urine microalbumin. Due on due Goal Dilated eye exam. Due on Aug due Goal GFR. Due on due Goal Foot exam. Due on due Goal Dental exam. Due on due Goal Hemoglobin A1C. Due on due Goal ASCVD 10 year risk. Due on due Goal Hemoglobin A1C. Due on due Goal Dilated eye exam. Due on Aug due Goal Dental exam. Due on due Goal GFR. Due on due Goal Urine microalbumin. Due on due Goal ASCVD 10 year risk. Due on due Goal Unhealthy drug u se screening. Due on due Goal PAP. Due on due Goal Mammogram. Due on due Goal Td vaccine. Due on due Goal Hepatitis C screening. Due o n due Goal Tdap. Due on due Goal HPV screening. Due on due Goal Pneumococcal vaccine. Due on due Goal Depression screening. Due on due Goal Lipid panel. Due on due Goal Influenza vaccine. Due on due Goal FOBT. Due on due Goal HPV. Due on due Goal Zoster vaccine (1st). Due on due Goal Colonoscopy. Due on due Goal Foot exam. Due on due Goal Foot exam. Due on due Goal ASCVD 10 year risk. Due on due Goal Urine microalbumin. Due on due Goal GFR. Due on due Goal Dental exam. Due on due Goal Dilated eye exam. Due on Jul due Goal Hemoglobin A1C. Due on due Goal Tdap. Due on due Goal Influenza vaccine. Due on due Goal Lipid panel. Due on due Goal Depression screening. Due on due Goal Hepatitis C screening. Due o n due Goal Pneumococcal vaccine. Due on due Goal Td vaccine. Due on due Goal Mammogram. Due on due Goal PAP. Due on due Goal Unhealthy drug u se screening. Due on due Goal FOBT. Due on due Goal HPV. Due on due Goal Zoster vaccine (1st). Due on due Goal Colonoscopy. Due on 023 due Patient Education Earwax Blockage: Care I nstructions completed Patient Education Learning About Dental Care and Your Health Problem completed Patient Education Dental X-Ray: About Thi s Test completed History Of Present Illness Encounter Date Complaint History Of Prese nt Illness Glaucoma The 58 year old patient presents for evaluation of Glaucoma in the right eye and left eye. Moderate, constant, > 6 months Diabetic eye exam The 58 year ol d patient presents for evaluation of Diabetic eye exam in the right eye and left eye. mild, constant, > 6 months Diabetic eye exam The 57 year ol d patient presents for evaluation of Diabetic eye exam in the right eye and left eye. mild, constant, > 6 months Functional Status Date Functional Assessmen t No Information Instructions Date Instruction Additional Infor bita RX: diabetic shoe wi th 3 pairs of inserts Related to Type 1 diabetes mellitus with diabetic neuropathy, unspecified Allow aeration of 5t h digit right foot to resolve maceration of tissue around the superficial ulcer on dorsal aspect of digit. Slight drainage noted on bandage. No signs of acute infection noted.Patient instructed to dress toe with 1/2 of fabric bandaid for more aeration and discontinue AFO within right shoe until toe is well healed Related to Pressure ulcer of other site, stage 1 All of the thickened or mycotic nails described were debrided with nail nipper and curette to prevent nail bed ischemic pressure, pain and secondary bacterial infection. Discussed etiologies and various treatments for onychomycosis Related to Tinea unguium All dystrophic nails were reduced in length and thickness as needed to prevent pain and other symptoms. Related to Nail dystrophy Impression/Plan - Mi ld non-proliferative diabetic retinopathy. No treatment indicated as this time. appears stable from previous, educated patient. Adequate diabetic control recommended. We will monitor at regular intervals. 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 Monitor for progression. IOP is excellent today. continue meds. Related to Primary open-angle glaucoma, bilateral, indeterminate stage Follow up - Return i n 3-6 months for retina eval. Follow up in 6-9 mon ths for evaluation as per protocol. Would recommend audiology referral at this time for evaluation patient wishes to pursue. Related to Sensorineural hearing loss, bilateral Refer to ENT for asy mmetry on pure tones and tinnitus. Related to Tinnitus, bilateral The callus was debri ded/pared with #312 blade and servando to prevent further tissue breakdown potential ulceration and continued pain. Related to Corns and callosities All dystrophic nails were reduced in length and thickness as needed to prevent pain and other symptoms. Related to Nail dystrophy Discussed etiologies and various treatments for onychomycosis Related to Tinea unguium OTC lotion applied. Webspaces cleaned with alcohol/gauze.Discussed daily skin hydration. Monitor need for Rx lotion Related to Xerosis cutis All dystrophic nails were reduced in length and thickness as needed to prevent pain and other symptoms. Related to Nail dystrophy All of the thickened or mycotic nails described were debrided with nail nipper and curette to prevent nail bed ischemic pressure, pain and secondary bacterial infection. Discussed etiologies and various treatments for onychomycosis Related to Tinea unguium OTC lotion applied. Webspaces cleaned with alcohol/gauze.Discussed daily skin hydration. Monitor need for Rx lotion Related to Xerosis cutis Performed cerumen re moval as per protocol. AU cleared. Follow up in 6-9 months for reevaluation for chronic cerumen impaction. Related to Impacted cerumen, bilateral Impression/Plan - Mo derate non-proliferative diabetic retinopathy with no macular edema present. Saw specialist per patient, vision is improved today. Advised to monitor diabetes control closely. We will monitor for progression. Related to Type 2 diabetes mellitus with moderate nonproliferative diabetic retinopathy with macular edema, bilateral Impression/Plan - Gl aucoma well controlled on current meds. IOP much improved today. We will continue to monitor at regular intervals. Related to Primary open-angle glaucoma, bilateral, indeterminate stage Follow up - Return i n 6-9 months for dilated fundus exam. OTC lotion applied. Webspaces cleaned with alcohol/gauze.Discussed daily skin hydration. Monitor need for Rx lotion Related to Xerosis cutis All of the thickened or mycotic nails described were debrided with nail nipper and curette to prevent nail bed ischemic pressure, pain and secondary bacterial infection. Discussed etiologies and various treatments for onychomycosis Related to Tinea unguium All dystrophic nails were reduced in length and thickness as needed to prevent pain and other symptoms. Related to Nail dystrophy All of the mycotic n ails described were debrided utilizing nail nippers and/or dremel in both length and thickness as needed to a tolerable level. Patient tolerated the procedure well. Related to Tinea unguium AU with complete cer umen impaction, Performed Cerumen Removal as per protocol. AU cleared of some wax to patient tolerance/ability. Unable to clear either ear obstruction at this visit, if no contraindication (no history of TM rupture, ear surgeries, or trauma and with pcp approval), would recommend Debrox 10 gtts bid x 4 days in AU then a gentle warm water rinse on the 5th day or defer to PCP for treatment of choice prior to our next visit, Attempt Re-treat in 1-3 months Related to Impacted cerumen, bilateral Impression/Plan - Mo derate non-proliferative diabetic retinopathy with no macular edema present. Advised to monitor diabetes control closely. Refer to retina specialist to assess. Related to Type 2 diabetes mellitus with moderate nonproliferative diabetic retinopathy with macular edema, bilateral Impression/Plan - Gl aucoma, IOP normal today, should be getting brimonidine bid OU, monitor for progression. Have specialist assess. high risk. Related to Primary open-angle glaucoma, bilateral, indeterminate stage Follow up - Return i n 3-6 months for IOP / gonio / pachymetry. Assessments Type Assessment Date assessment Presbyopia Patient Care Teams Name Effective Dates (start - stop) Status Members No Information
--- OUTSIDE RECORDS SUMMARY | 2024-01-21 11:00 | XMS_ITS ---
Author Organization [facility] Address [address] [place] [address] [place] [address] Care Team Providers Care Railways Assistant Name Role Phone José Miguel Crouch;Jesse richey Primary Care Provider Un available Jose Field Unavailable [phone] Encounters Encounter Location Date Provider Diagnosis [address] [address] 01/21/2024 Jose Field Plan Of Treatment Next Appt Details Provider Name:Jose philip, 07/21/2024 01:45:00 PM, [address] [place] [address], [address], Provider Name:Jose philip, 08/05/2024 01:30:00 PM, [address] [place] [address] [address], [address], [place], [address], Progress Notes * Claudia FERNANDEZOB:1965 ([age] yo F)Acc No.[id number]:01/21/2024 Patient: Cleo SAL Provider: Sallie Field DPM :1965 A ge:58 Y S ex:Female Date:01/21/2024 Address:[address] [place], [place] [id number] Pcp:Willa Mayen;kaiden Subjective: * Chief Complaints: * * Medical History: Objective: * Vitals: Assessment: Plan: * Treatment: * Images: * Electronic signature of [place] in MARK Field on 07/20/2024 at 02:23 PM EDT Sign off status: Pending * Provider: Sallie Field DPM Date: 03/23/2023 Generated for Emanuel sanon/Amrik/Jillianitting on: 0 07/20/2024 02:23 PM EDT
--- OUTSIDE RECORDS SUMMARY | 2024-04-21 11:00 | XMS_ITS ---
Author Organization [facility] Address [address] [place] [address] [place] [address] Care Team Providers Care Guide Tour Name Role Phone José Miguel Crouch;Jesse richey Primary Care Provider Un available Jose Field Unavailable [phone] Encounters Encounter Location Date Provider Diagnosis [address] [address] 04/21/2024 Jose Field Plan Of Treatment Next Appt Details Provider Name:Jose philip, 07/21/2024 01:45:00 PM, [address] [place] [address], [address], Provider Name:Jose philip, 08/05/2024 01:30:00 PM, [address] [place] [address] [address], [address], [place], [address], Progress Notes * Claudia FERNANDEZOB:1965 ([age] yo F)Acc No.[id number]:04/21/2024 Patient: Cleo SAL Provider: Sallie Field DPM :1965 A ge:59 Y S ex:Female Date:04/21/2024 Address:[address] [place], [place] [address] Pcp:Willa Mayen;kaiden Subjective: * Chief Complaints: * * Medical History: Objective: * Vitals: Assessment: Plan: * Treatment: * Images: * Electronic signature of Shiloh in MARK Field on 07/20/2024 at 02:23 PM EDT Sign off status: Pending * Provider: Sallie Field DPM Date: 0 04/21/2024 Generated for Emanuel sanon/Amrik/Jillianitting on: 0 07/20/2024 02:23 PM EDT
--- OUTSIDE RECORDS SUMMARY | 2024-06-09 09:45 | XMS_ITS ---
Author Organization [facility] Address [address] [place] [address] [place] [address] Care Team Providers Care Stratigrapher Name Role Phone José Miguel Crouch;Jesse richey Primary Care Provider Un available Jose Field Unavailable [phone] REASON FOR VISIT L CALLUS only; not toenails Encounters Encounter Location Date Provider Diagnosis [address] [address] 06/09/2024 Jose Field Plan Of Treatment Next Appt Details Provider Name:Jose philip, 07/21/2024 01:45:00 PM, [address] [place] [address], [address], Provider Name:Jose philip, 08/05/2024 01:30:00 PM, [address] [place] [address] Dr Leiva, [facility] [place], [address], Progress Notes * Claudia FERNANDEZOB:1965 ([age] yo F)Acc No.[id number]:06/09/2024 Patient: Cleo SAL Provider: Sallie Field DPM :1965 A ge:59 Y S ex:Female Date:06/09/2024 Address:[address] [place], [place] [id number] Pcp:Willa Mayen;kaiden Subjective: * Chief Complaints: * 1 . L CALLUS only; not toenails. * Medical History: Objective: * Vitals: Assessment: Plan: * Treatment: * Images: * Electronic signature of [place] in MARK Field on 07/20/2024 at 02:22 PM EDT Sign off status: Pending * Provider: Sallie Field DPM Date: 0 06/09/2024 Generated for Emanuel sanon/Amrik/Margo on: 0 07/20/2024 02:22 PM EDT
--- OUTSIDE RECORDS SUMMARY | 2024-07-20 14:23 | XMS_ITS | Patient Health Record ---
Author Organization [facility] Address [facility] [place] [address] Care Team Providers Care R&D Engineer Name Role Phone José Miguel Crouch;Jesse richey Primary Care Provider Un available Jose Field Unavailable [phone] Reason For Referral No Information Encounters Encounter Location Date Provider Diagnosis [facility] [address] [place] [address] 10/29/2023 Jose Gaona [facility] [address] [place] [address] 01/21/2024 Jose Marlonsoheila [facility] [address] [place] [address] 04/21/2024 [facility] [address] [place] [address] 06/09/2024 Jose Field Plan Of Treatment Next Appt Details Provider Name:Jose philip, 07/21/2024 01:45:00 PM, [address], [place], [address], Provider Name:Jose philip, 08/05/2024 01:30:00 PM, [address] [place] [address] Dr Leiva, Kate A, [place], [address], Insurance Providers Payer Name Payer Address Payer Phone Subscriber Number Group Number Insured Name Patient Relationship to Insured Coverage Start Date Coverage End Date Medicare Part B J-15 Part [facility] [place] [address] [id number] Cleo Georges Self - patient is the insured [employer] [address] [place] [address] [id number] Darci Georgesudy Self - patient is the insured Medicaid [place] [employer] [address] [place] [address] [id number] Cleo Georges Self - patient is the insured
--- OUTSIDE RECORDS SUMMARY | 2024-07-20 14:23 | XMS_ITS | Referral Summary ---
Author Organization [facility] Address [address] [place] [address] Care Team Providers Care Tanning Salon Attendant Name Role Phone Binh, Aamir VIVEROS Primary Care Provider Social History Tobacco Use Types Packs/Day Years Used Date Smoking Tobacco: Never Assessed OR Safety & Environment Answer Date Rec orded Fear of Current or Ex-Partner Not on file Emotionally Abused Not on file 04/10/2023 Physically Abused Not on file 04/10/2023 Sexually Abused Not on file 04/10/2023 Physically or Sexually Abused Not on file Sex and Gender Information Value Date Recorded Sex Assigned at Not on file Gender Identity Not on file Sexual Orientation Not on file Last Filed Vital Signs Vital Sign Reading Time Taken Comments Blood Pressure 143/73 08/26/2018 2:28 PM EDT Pulse - - Temperature 37.1 C (98.7 F) 08/26/2018 2:24 PM EDT Respiratory Rate - - Oxygen Saturation - - Inhaled Oxygen Concentration - - Weight 68.9 kg (152 lb) 08/26/2018 2:24 PM EDT Height 165.1 cm (5' 5 ) 08/26/2018 2:24 PM EDT Body Mass Index 25.29 08/26/2018 2:24 PM EDT Plan of Treatment Not on file Procedures Procedure Name Priority Date/Time Associated Diagnosis Comments HEMOGLOBIN A1C Timed 07/11/2018 6:08 AM EDT from Last 3 Months or Most Recently Relevant to Health Maintenance Results * (ABNORMAL) Hemoglobin A1C (07/11/2018 6:08 AM EDT) Hemoglobin A1C 8.9(H) 4.0 - 6.0 % LAB CONVERSIONS Estimated Average Glucose 209(H) 70 - 126 mg/dL LAB CONVERSIONS 07/11/2018 6:08 AM EDT 07/11/2018 10:48 PM EDT Narrative LAB CONVERSIONS - 07/12/2018 11:13 AM EDT Yes: Add to Previous draw if able Dione Quintana LAB BLOOD ORDERABLES LAB CONVERSIONS from Last 3 Months or Most Recently Relevant to Health Maintenance Care Teams Tanning Salon Attendant Relationship Specialty Start Date End Date Aamir Purcell MD [address] [place] [address] PCP - General 10/19/21
--- OUTSIDE RECORDS SUMMARY | 2024-07-20 14:23 | XMS_ITS | Clinical Summary ---
Author Organization [facility] Address [address] [place], [place] [address] Care Team Providers Care Technical Asst Name Role Phone Basilia Tobias Lars PALACIOS Primary Care Provider Allergies Active Allergy Reactions Criticality Noted Date Comments Moxifloxacin Rash,Swelling,Itching 03/23/2015 Cephalexin Hives,Swelling,Itching 03/23/2015 Tapentadol Mental Status Change 10/31/2015 Medications metFORMIN (GLUCOPHAGE) 1,000 mg tablet Take 1,000 mg by mouth twice daily with meals. Active HYDROcodone-felicita taminophen (NORCO) 5-325 mg per tablet Take 1 tablet by mouth every 6 hours as needed. Active levothyroxine (SYNTHROID) 112 mcg tablet Take 112 mcg by mouth daily before breakfast. Active metoprolol tartrate, short acting, (LOPRESSOR) 100 mg tablet Take 100 mg by mouth twice daily. Active INSULIN ZINC HUMAN RECOMBINANT (HUMULIN L SUBCUTANE.) Inject 25 Units subcutaneously twice daily. Active Social History Tobacco Use Types Packs/Day Years Used Date Smoking Tobacco: Former Smokeless Tobacco: Never Alcohol Use Standard Drinks/Week Comments Not Asked 0 (1 standard drink = 0.6 oz pur e alcohol) Comments Unknown Sex and Gender Information Value Date Recorded Sex Assigned at Not on file Legal Sex Female 9:26 AM EST Gender Identity Not on file Sexual Orientation Not on file Last Filed Vital Signs Vital Sign Reading Time Taken Comments Blood Pressure 126/69 10/31/2015 3:09 PM EDT Pulse 99 10/31/2015 3:09 PM EDT Temperature - - Respiratory Rate 18 05/02/2015 3:50 PM EDT Oxygen Saturation - - Inhaled Oxygen Concentration - - Weight - - Height 165.1 cm (5' 5 ) 03/23/2015 12:42 PM EST Body Mass Index - - Plan of Treatment Health Maintenance Due Date Last Done Comments Anxiety Screening 1981 Depression Screening 1981 HIV Screening 1981 Hepatitis C Screening 1981 DTaP,Tdap,Td Vaccine (1 - Tdap) 1982 Cervical Cancer Screening 02/07/[address] Colonography 02/07/2008 Cologuard (FIT-DNA) 02/07/2008 Colonoscopy 02/07/2008 Colorectal Cancer Screening 02/07/2008 Fecal Occult Blood 02/07/2008 Lipid Screening 02/07/2008 Sigmoidoscopy 02/07/2008 Pneumococcal Vaccine: 50+ (1 of 1 - PCV) 2013 Shingrix Vaccine (1 of 2) 2013 Diabetes Screening 03/23/2018 03/23/2015, 03/23/2015 Covid-19 Vaccine ( - 2023- season) 2023 Influenza Vaccine (Season Ended) 2024 RSV Vaccine (1 - 1-dose 75+ series) 2038 Procedures Procedure Name Priority Date/Time Associated Diagnosis Comments HEMOGLOBIN A1C Routine 03/23/2015 2:21 PM EST 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 HgbA1c greater or equal to 6.5% is considered diagnostic of diabetes. Estimated Average Glucose >240 mg/dL 03/23/2015 10:11 PM EST [facility] Comment: eAG: (Estimated average glucose) is a calculated value from HgbA1c and is veterans service representative of the average blood glucose level in the last 2-3 month period. Blood specimen (specimen) WHOLE BLOOD SPECIMEN / Unknown 03/23/2015 2:21 PM EST 03/23/2015 2:26 PM EST [facility] Final Result [facility] [address] [place] [address] from Last 3 Months or Most Recently Relevant to Health Maintenance Insurance MEDICARE Care Teams Technical Asst Relationship Specialty Start Date End Date Tobias Cui DO PCP - General Family Medicine 02/13/15
--- OUTSIDE RECORDS SUMMARY | 2024-07-20 14:23 | XMS_ITS | Patient Health Record ---
Author Organization [facility] Address [address] [place] [address] Care Team Providers Care Die Out Worker Name Role Phone Aamir Purclel DO Primary Care Provider Unavaila ble Reason For Referral No Information Problems Problem Type SNOMED Code ICD Code Onset Dates Problem Status W/U Status Risk Notes Problem 059414149 Type 2 diabetes mellitus without complications (E11.9) Active confirmed Problem 550274470 correction (curre nt) use of insulin (Z79.4) Active confirmed Problem 29525966 Encephalopathy (G93.40) Active confirmed Problem 79488239 Essential hypertension (I10) Active confirmed Problem MR (mitral regurgitation) (I34.0) Active confirmed Problem 112998255 Acquired hypothyroidism (E03.9) Active confirmed Problem 393037620 Thrombocytopenia (D69.6) Active confirmed Problem 412006260 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 Problem 936573479 Agitation (R45.1) Active confirmed Problem 969773877 Type 2 diabetes mellitus without complication, unspecified whether chcf insulin use (E11.9) Active confirmed Problem 244204470 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
--- OUTSIDE RECORDS SUMMARY | 2024-07-20 14:23 | XMS_ITS | Encounter Summary ---
Author Organization [facility] Address [address] [place] [address] Care Team Providers Care Beater Machine Operator Name Role Phone Aamir Purcell MD Primary Care Provider Encounter Details Date Type Department Care Team (Late st Contact Info) Description 10/27/2021 Lab Requisition [facility] [address] [place] [address] Migue Cole MD [address] [facility] [address] [place] [address] Social History Tobacco Use Types Packs/Day Years Used Date Smoking Tobacco: Never Assessed Sex and Gender Information Value Date Recorded Sex Assigned at Not on file Gender Identity Not on file Sexual Orientation Not on file documented as of this encounter Plan of Treatment Not on file documented as of this encounter Procedures Procedure Name Priority Date/Time Associated Diagnosis Comments HEMOGLOBIN STAT 10/27/2021 7:21 PM EDT HEMATOCRIT STAT 10/27/2021 7:21 PM EDT documented in this encounter Results * (ABNORMAL) Hematocrit (10/27/2021 7:21 PM EDT) Hematocrit 33.5(L) 36.0 - 48.0 % 10/27/2021 8:48 PM EDT [facility] (BEAKER) Blood Venous blood specimen / Unknown 10/27/2021 7:21 PM EDT 10/27/2021 7:22 PM EDT Migue Cole MD LAB BLOOD ORDERABL ES [facility] (RACHEL) [address] [place] [address] * (ABNORMAL) Hemoglobin (10/27/2021 7:21 PM EDT) Hemoglobin 10.7(L) 12.0 - 15.0 g/dL 10/27/2021 8:49 PM EDT [facility] ([facility]) Blood Venous blood specimen / Unknown 10/27/2021 7:21 PM EDT 10/27/2021 7:22 PM EDT Migue Cole MD LAB BLOOD ORDERABL ES Performing Organization Address City/[facility] Co de Phone Number [facility] (RACHEL) [address] [place] [address] documented in this encounter Visit Diagnoses Not on filedocumented in this encounter Care Teams Beater Machine Operator Relationship Specialty Start Date End Date Aamir Purcell MD [address] [place] [address] PCP - General 10/19/21 documented as of this encounter
--- OUTSIDE RECORDS SUMMARY | 2024-07-20 14:23 | XMS_ITS | Encounter Summary ---
Author Organization [facility] Address [address] [place] [address] Care Team Providers Care Technical Buyer Name Role Phone Aamir Purcell MD Primary Care Provider [phone] Encounter Details Date Type Department Care Team (Late st Contact Info) Description 10/30/2021 Lab Requisition [facility] [address] [place] [address] Migue Cole MD [address] [facility] [address] [place] [address] Social History Tobacco Use Types Packs/Day Years Used Date Smoking Tobacco: Never Assessed Sex and Gender Information Value Date Recorded Sex Assigned at Not on file Gender Identity Not on file Sexual Orientation Not on file documented as of this encounter Plan of Treatment Not on file documented as of this encounter Procedures Procedure Name Priority Date/Time Associated Diagnosis Comments BASIC METABOLIC PANEL Routine 10/30/2021 7:00 AM EDT documented in this encounter Results * (ABNORMAL) Basic metabolic panel (10/30/2021 7:00 AM EDT) Sodium 139 136 - 145 mmol/L 10/30/2021 9:42 AM EDT [facility] (BEAKER) Potassium 4.3 3.5 - 5.1 mmol/L 10/30/2021 9:42 AM EDT [facility] (BEAKER) Chloride 101 98 - 107 mmol/L 10/30/2021 9:42 AM EDT [facility] (BEAKER) CO2 28 21 - 31 mmol/L 10/30/2021 9:42 AM EDT [facility] (BEAKER) BUN 36(H) 7 - 25 mg/dL 10/30/2021 9:42 AM EDT [facility] ([facility]) Creatinine 0.71 0.60 - 1.20 mg/dL 10/30/2021 9:42 AM EDT [facility] ([facility]) Glucose 74 70 - 100 mg/dL 10/30/2021 9:42 AM EDT [facility] ([facility]) Calcium 9.6 8.6 - 10.3 mg/dL 10/30/2021 9:42 AM EDT [facility] ([facility]) Anion Gap 10 <=30 mmol/L 10/30/2021 9:42 AM EDT [facility] ([facility]) eGFR 94.2 >60.0 mL/min/1. 73m*2 10/30/2021 9:42 AM EDT [facility] ([facility]) Comment:The [facility] s estimated glomerular filtration rate (eGFR) will no longer include consideration of race in its calculation. The National Kidney Foundation s eGFR Task Force developed new recommendations for [...] disproportionately affect any one group of individuals. BUN/Creatinine Ratio 50.70 10/18 9:42 AM EDT [facility] ([facility]) Blood Venous blood specimen / Unknown 10/30/2021 7:00 AM EDT 10/30/2021 3:45 AM EDT Migue Cole MD LAB BLOOD ORDERABL ES [facility]) [address] [place] [address] documented in this encounter Visit Diagnoses Not on filedocumented in this encounter Care Teams Technical Buyer Relationship Specialty Start Date End Date Aamir Purcell MD [address] [place] [address] PCP - General 10/19/21 documented as of this encounter
--- OUTSIDE RECORDS SUMMARY | 2024-07-20 14:23 | XMS_ITS | Encounter Summary ---
Author Organization [facility] Address [address] [place] [address] Care Team Providers Care Health And Wellness Sales Consultant Name Role Phone Aamir Purcell Primary Care Provider [phone] Hoang Gilliam DPM Unavailable [phone] SOMMER DO, W. 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 of [place] arteries of left leg with ulceration of other part of foot (HCC) Hoang Gilliam DPM [address] [place] [address] Phone: tel: fax: [facility] [address] 3rd [place] [address] Phone: tel: fax: Referral ID Status Reason Start Date Expiration Date V isits Requested Visits Authorized [id number] Closed Specialty Services Required/Herminia ent's Best Interest 03/28/2017 03/28/2018 1 1 Encounter Details Date Type Department Care Team (Latest Contact Info) Description 03/28/2017 Transcribe Orders [facility] [address] 3rd [place] [address] Hoang Gilliam, MARK [address] [place] [address] PVD (peripheral vascular disease) (Primary Dx); 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); Atherosclerosis of [place] arteries of left leg with ulceration of other part of foot (HCC) Social History Tobacco Use Types Packs/Day Years Used Date Smoking Tobacco: Never Assessed Comments Unknown Sex and Gender Information Value Date Recorded Sex Assigned at Not on file Legal Sex Female 4:56 AM EDT Gender Identity Female 12/04/2020 1:29 PM EDT Sexual Orientation Straight 09/14/2020 3: 56 PM EDT documented as of this encounter Plan of Treatment Scheduled Referrals Name Type Priority Associated Diagnoses Order Schedule Ambulatory referral to Cardiology Outpatient Referral Routine Non-Pressure Chronic Ulcer Of Other Part Of Left Lower Leg With Muscle Involvement Without Evidence Of Necrosis (Hcc) Atherosclerosis of [place] arteries of left leg with ulceration of other part of foot (HCC) 1 Occurrences starting 03/28/2017 until 03/28/2018 documented as of this encounter Visit Diagnoses Diagnosis PVD (peripheral vascular disease)- Primary Unspecified peripheral vascular disease 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 of [place] arteries of left leg with ulceration of other part of foot (HCC) documented in this encounter Additional Health Concerns Infection Onset Date Last Indicated Resolved Time COVID-19 Suspected 05/18/2021 05/18/2021 2 7:53 PM EDT COVID-19 Suspected 05/29/2021 05/29/2021 2 12:26 PM EDT documented as of this encounter Care Teams Health And Wellness Sales Consultant Relationship Specialty Start Date End Date Aamir Purcell DO [address] [place] [address] PCP - General Family Medicine 03/28/17 Hoang Gilliam DPM [address] [place] [address] Consulting Physician Podiatry 04/07/17 05/17/21 Reji Miramontes III, DO [address] [place] [address] Consulting Physician Vascular Surgery 04/07/17 05/17/21 documented as of this encounter
--- OUTSIDE RECORDS SUMMARY | 2024-07-20 14:23 | XMS_ITS | Encounter Summary ---
Author Organization [facility] Address [address] [place] [address] Care Team Providers Care Test Conductor Name Role Phone Aamir Purcell Primary Care Provider [phone] Hoang Gilliam DPM Unavailable [phone] Fe SOMMER DO, W. Don Unavailable [phone] Encounter Details Date Type Department Care Team (Late st Contact Info) Description 04/02/2017 Abstract [facility] V[facility] Physicians [address], 3rd [place] [address] Alaina Doan MA Social History Tobacco Use Types Packs/Day Years [...] on file documented as of this encounter Visit Diagnoses Not on filedocumented in this encounter Additional Health Concerns Infection Onset Date Last Indicated Resolved Time COVID-19 Suspected 05/18/2021 05/18/2021 2 7:53 PM EDT COVID-19 Suspected 05/29/2021 05/29/2021 2 12:26 PM EDT documented as of this encounter Care Teams Test Conductor Relationship Specialty Start Date End Date Aamir Purcell DO [address] [place] [address] PCP - General Family Medicine 03/28/17 Hoang Gilliam DPM [address] [place] [address] Consulting Physician Podiatry 04/07/17 05/17/21 Reji Miramontes III, DO [address] [place] [address] Consulting Physician Vascular Surgery 04/07/17 05/17/21 documented as of this encounter
--- OUTSIDE RECORDS SUMMARY | 2024-07-20 14:24 | XMS_ITS | Encounter Summary ---
Author Organization [facility] Address [address] [place] [address] Care Team Providers Care Geriatric Personal Care Aide Name Role Phone Aamir Purcell MD Primary Care Provider [phone] Encounter Details Date Type Department Care Team (Late Contact Info) Description 04/19/2024 Abstract [facility] [address] [facility] [place] [address] [place] [address] Unallocated, Noms Provider, [address] [place] [address] Social History Tobacco Use Types Packs/Day Years Used Date Smoking Tobacco: Never Assessed Comments Unknown Sex and Gender Information Value Date Recorded Sex Assigned at Not on file Legal Sex Female 6:48 PM EDT Gender Identity Not on file Sexual Orientation Not on file documented as of this encounter Plan of Treatment Upcoming Encounters Date Type Department Care Team (Late Contact Info) Description 08/17/2024 10:50 AM EDT Office Visit [facility] [address] [facility] [address] [address] [place] [address] Nadia Quiñones, FURNACE REPAIR MECHANIC-CONTRACT ASSISTANT [address] [facility] [address] [place] [address] 09/27/2024 1:15 PM EDT Office Visit [facility] [address] [place] [address] Adilson Johnson, [address] [place] [address] documented as of this encounter Visit Diagnoses Not on filedocumented in this encounter Care Teams Geriatric Personal Care Aide Relationship Specialty Start Date End Date Aamir Purcell MD [address] [place] [address] PCP - General Family Medicine 08/12/22 documented as of this encounter
--- OUTSIDE RECORDS SUMMARY | 2024-07-20 14:24 | XMS_ITS | Encounter Summary ---
Author Organization [facility] Address [address] [place] [address] Care Team Providers Care Clerical Stock Inspector Name Role Phone Aamir Purcell MD Primary Care Provider [phone] Encounter Details Date Type Department Care Team (Late Contact Info) Description 05/03/2024 Abstract [facility] 112 [facility] [address] [place] [address] Unallocated, Noms Provider, [address] [place] [address] Social History Tobacco Use Types Packs/Day Years [...] Office Visit [facility] [address] [facility] [address] [place] [address] Nadia Quiñones, DIGESTER CAPPER-PREVENTION RN [address] [facility] [address] [place] [address] 09/27/2024 1:15 PM EDT Office Visit [facility] [address] [place] [address] Adilson Johnson, [address] [place] [address] documented as of this encounter Visit Diagnoses Not on filedocumented in this encounter Care Teams Clerical Stock Inspector Relationship Specialty Start Date End Date Aamir Purcell MD [address] [place] [address] PCP - General Family Medicine 08/12/22 documented as of this encounter
--- OUTSIDE RECORDS SUMMARY | 2024-07-20 14:24 | XMS_ITS | Encounter Summary ---
Author Organization [facility] Address [address] [place] [address] Care Team Providers Care Warp Changer Name Role Phone Aamir Purcell MD Primary Care Provider [phone] Encounter Details Date Type Department Care Team (Late st Contact Info) Description 12/13/2022 Clinisync Result Encounter [facility] External Department Unsolicited Maine Chávez, REMELT OPERATOR [address] [facility] 110 [place] [address] Social History Tobacco Use Types Packs/Day Years [...] Office Visit [facility] [address] [facility] [address] [place] [address] Nadia Quiñones, CLINICAL SECRETARY-PATTERN PAINTER [address] [facility] [address] [place] [address] 09/27/2024 1:15 PM EDT Office Visit [facility] [address] [place] [address] Adilson Johnson DO [address] [place] [address] (work) documented as of this encounter Procedures Procedure Name Priority Date/Time Associated Diagnosis Comments BD BONE DENSITY DEXA 12/13/2022 2:02 PM EDT documented in this encounter Results * BD BONE DENSITY DEXA (12/13/2022 2:02 PM EDT) Anatomical Region Laterality Modality Other 12/13/2022 2:02 PM EDT Narrative 12/14/2022 10:45 AM EDT Exam Date/Time: 12/13/2022 14:28 EDT Reason for Exam: M85.89 Report IMPRESSION: OSTEOPENIA. The 10 year probability (FRAX) of a major osteoporotic fracture based on the left femoral neck bone marrow density is: 12.9%, and hip fracture 0.9%. EXAM: BD Bone Density DEXA DATE: 12/13/2022 2:02 PM CLINICAL HISTORY: M85.89. COMPARISON: None available. COMMENTS: The lumbar spine, left forearm, and both hips were scanned. The mean bone mineral density from L1 to L4 is 1.645 g/cm2 and this value is 3.9 standard of deviation above the standard reference value for a young adult. Bone mineral density of the left femoral neck is 0.867 g/cm2 and this value is - 1.2 standard of deviation below the standard reference value. Bone mineral density of the right femoral neck is 0.894 g/cm2 and this value is -1.0 standard of deviation below the standard reference value. Bone mineral density left radius 33% is 0.872 g/cm2 and this value is -0.2 standard of deviation below the standard reference value. These values meet WHO criteria for osteopenia. RECOMMENDATIONS: 1. All patients should optimize her calcium and vitamin D intake. 2. Consider FDA-approved medical therapies in postmenopausal women and minimal age 50 years and older, based on the following: - hip or vertebral (clinical or morphometric) fracture. - T-score less than or equal to -2.5 at the femoral neck or spine after the appropriate evaluation to exclude secondary causes. - Low bone density (T score between -1.0 and -2.5 at the femoral neck or spine) and a 10 year probability of hip fracture greater than or equal to 3% or a 10-year probability of a major osteoporosis-related fracture greater than or equal to 20% based on FRAX calculation. - Clinician judgment and/or patient preferences may indicate treatment for palpable attenuation fracture probability is above or below these levels. Report - Further guidance on treatment can be found at the National Osteoporosis Foundation's website: bonesource.org 3. Patients with diagnosis of osteoporosis or high risk for fracture. There are irregular bone mineral density tests. For patients eligible for Medicare, routine testing is allowed once every 2 years. Testing frequency can be increased to 1 year for patient's history of rapidly progressing disease, those who are receiving or discontinuing medical therapy to restore bone mass or have additional risk factors. Ordering Provider: , FINAL REPORT Dictated: 12/14/2022 10:42 am Gerardo Armstrong MD Signed (Electronic Signature): 12/14/2022 10:42 am Signed by: Gerardo Armstrong MD Transcribed by: SINDY Technologist: ANGÉLICA Procedure Note Radiology, Radiologist, - 12/14/2022 Exam Date/Time: 12/13/2022 14:28 EDT Reason for Exam: M85.89 Report IMPRESSION: OSTEOPENIA. The 10 year probability (FRAX) of a major osteoporotic fracture based onthe left femoral neck bone marrow density is: 12.9%, and hip fracture 0.9%. EXAM: BD Bone Density DEXA DATE: 12/13/2022 2:02 PM CLINICAL HISTORY: M85.89. COMPARISON: None available. COMMENTS: The lumbar spine, left forearm, and both hips were scanned. The mean bone mineral density from L1 to L4 is 1.645 g/cm2 and this valueis 3.9 standard of deviation above the standard reference value for a youngadult. Bone mineral density of the left femoral neck is 0.867 g/cm2 and thisvalue is - 1.2 standard of deviation below the standard reference value. Bone mineral density of the right femoral neck is 0.894 g/cm2 and thisvalue is - 1.0 standard of deviation below the standard reference value. Bone mineral density left radius 33% is 0.872 g/cm2 and this value is - 0.2standard of deviation below the standard reference value. These values meet WHO criteria for osteopenia. RECOMMENDATIONS: 1. All patients should optimize her calcium and vitamin D intake. 2. Consider FDA-approved medical therapies in postmenopausal women andminimal age 50 years and older, based on the following: - hip or vertebral (clinical or morphometric) fracture. - T-score less than or equal to -2.5 at the femoral neck orspine after the appropriate evaluation to exclude secondary causes. - Low bone density (T score between -1.0 and -2.5 at the femoralneck or spine) and a 10 year probability of hip fracture greater than or equal to3% or a 10-year probability of a major osteoporosis-related fracture greater thanor equal to 20% based on FRAX calculation. - Clinician judgment and/or patient preferences may indicatetreatment for palpable attenuation fracture probability is above or below theselevels. Report - Further guidance on treatment can be found at the NationalOsteoporosis Foundation's website: bonesource.org 3. Patients with diagnosis of osteoporosis or high risk for fracture.There are irregular bone mineral density tests. For patients eligible for Medicare,routine testing is allowed once every 2 years. Testing frequency can be increasedto 1 year for patient's history of rapidly progressing disease, those who arereceiving or discontinuing medical therapy to restore bone mass or have additional riskfactors. Ordering Provider: , FINAL REPORT Dictated: 12/14/2022 10:42 am Gerardo Armstrong MD Signed (Electronic Signature): 12/14/2022 10:42 am Signed by: Gerardo Armstrong MD Transcribed by: SINDY Technologist: ANGÉLICA us Maine Chávez REMELT OPERATOR [facility] Final Result documented in this encounter Visit Diagnoses Not on filedocumented in this encounter Care Teams Warp Changer Relationship Specialty Start Date End Date Aamir Purcell MD [facility] [place] [address] PCP - General Family Medicine 08/12/22 documented as of this encounter
--- OUTSIDE RECORDS SUMMARY | 2024-07-20 14:24 | XMS_ITS | Clinical Summary ---
Author Organization [facility] Address [address] [place] [address] Care Team Providers Care Stone Dresser Name Role Phone Aamir Purcell DO Primary Care Provider [phone] Allergies Active Allergy Reactions Criticality Noted Date Comments Moxifloxacin Itching,Swelling,Tolu h,Other (See Comments) Low 04/07/2017 Abdominal pain Cephalexin Itching High 04/07/2017 burning Tapentadol Unknown 04/07/2017 Medications carvediloL (COREG) 25 MG tablet 2 (two) times a day. Active levothyroxine 112 mcg cap daily. Active MULTIVITAMIN ORAL daily. Active tiZANidine (ZANAFLEX) 4 MG tablet as needed. Active latanoprost (XALATAN) 0.005 % ophthalmic solution Administer 1 drop to both eyes at bedtime. 6 8 Active aspirin 325 MG EC tablet Take 1 (one) tablet (325 mg total) by mouth daily. 60 tablet 5 8 Active brimonidine (ALPHAGAN) 0.15 % ophthalmic solution Administer 1 drop into the left eye 2 (two) times a day . 0 Active dorzolamide-tasha oloL (COSOPT) 22.3-6.8 mg/mL ophthalmic solution Apply 1 drop to eye 2 (two) times a day . 8 Active insulin lispro 100 unit/mL InPn Use less than 30 units daily with sliding scale. 0 Active insulin glargine (LANTUS) 100 unit/mL injection Inject 16 (sixteen) Units under the skin nightly . 4.8 mL 2 Active lisinopriL (PRINIVIL,ZESTR IL) 10 MG tablet Take 1 (one) tablet (10 mg total) by mouth daily with lunch . 30 tablet 2 Active Active Problems Problem Noted Date Diagnosed Date Other headache syndrome 05/19/2021 Assessment & Plan (05/20/2021 9:25 AM EDT): She has chronic headaches which had significantly worsened following chiropractic manipulation on 05/16/2021 and medical massage on 05/18/2021. Her symptoms have not improved despite treatment of her blood pressure. MRI brain and C-spine with and without contrast on 05/19/2021 did not reveal any underlying causative structural lesion. It is still possible that the pt's head/neck pain are partially due to the effects of spasming by the myofascial trigger points in the pt's neck, so would also monitor for improvement with treatment of these. Myalgia 05/19/2021 Assessment & Plan (05/20/2021 9:25 AM EDT): These are due to the myofascial trigger points in the pt's bilateral skull base/posterior neck. Would continue to apply heat and give Flexeril 5mg TID. Awaiting result of methylmalonic acid level to further assess for B12 deficiency, but would also empirically start supplementation with 2,000mcg PO Qday as she is at risk for this disorder by virtue of having diabetes. Cervical radiculopathy 05/18/2021 Neck sprain 05/18/2021 Osteomyelitis 04/23/2019 Foot ulcer 02/25/2019 Overview (09/13/2020): OTHER PART OF FOOT Non-pressure chronic ulcer o f other part of left foot with fat layer exposed 08/14/2017 Non-pressure chronic ulcer o f left lower leg with fat layer exposed 03/28/2017 Non-pressure chronic ulcer o f other part of left lower leg with muscle involvement without evidence of necrosis 03/14/2017 Non-pressure chronic ulcer o f left ankle with fat layer exposed 09/06/2016 Non-pressure chronic ulcer o f right ankle limited to breakdown of skin 08/14/2016 Type 2 diabetes mellitus with foot ulcer 017 Fracture of third toe, left, closed 02/15/2016 Closed displaced fracture of first metatarsal bone of left foot with routine healing 04/17/2015 Asthma 03/27/2015 Chronic ulcer of great toe of left foot 03/27/19 16 Glaucoma 03/27/2015 High cholesterol 03/27/2015 Hypertension 03/27/2015 Thyroid disorder 03/27/2015 Immunizations Immunization Administration Dates Next Due Influenza, Unspecified 10/07/2019 Pneumococcal, Unspecified 10/07/2019 Family History Medical History Relation Comments Pancreatic cancer Father Diabetes Mother Relation Status Comments Father Mother Social History Tobacco Use Types Packs/Day Years Used Date Smoking Tobacco: Former Cigarettes 0 04/07/1979 - 04/07/1989 Smokeless Tobacco: Never Comments:doesn't remember ho w much she smoked Alcohol Use Standard Drinks/Week Comments Not Currently 0 (1 standard drink = 0.6 oz pur e alcohol) rarely Comments No Sex and Gender Information Value Date Recorded Sex Assigned at Not on file Legal Sex Female 4:56 AM EDT Gender Identity Female 12/04/2020 1:29 PM EDT Sexual Orientation Straight 09/14/2020 3: 56 PM EDT Last Filed Vital Signs Vital Sign Reading Time Taken Comments Blood Pressure 144/79 05/29/2021 5:11 PM EDT Pulse 92 05/29/2021 5:11 PM EDT Temperature 36.8 C (98.3 F) 05/29/2021 5:11 PM EDT Respiratory Rate 12 05/29/2021 5:11 PM EDT Oxygen Saturation 96% 05/29/2021 5:11 PM EDT Inhaled Oxygen Concentration - - Weight 76.2 kg (167 lb 15.9 oz) 05/28/2021 5:00 AM EDT bed Height 165.1 cm (5' 5 ) 05/19/2021 9:04 AM EDT Body Mass Index 27.96 05/19/2021 9:04 AM EDT Plan of Treatment Health Maintenance Due Date Last Done Comments CT Colonography 1963 Colonoscopy 1963 Colorectal Cancer Screening/Monitoring 1963 Fecal DNA 1963 Fecal occult blood test (FOBT,FIT) 1963 Tetanus: Every 10yrs 1963 Wellness Visit 1966 Depression Screening/Follow- Up (PHQ-2/9) 1975 HIV Screening 1978 Hepatitis C Screening 1981 Pap Smear 02/07/1984 Cervical Cancer Screening 1993 HPV/Cotest 1993 Zoster Vaccines (2 of 3) 12/30/2013 11/04/2013 Pneumococcal Vaccine: Age 50 + (2 of 2 - PCV) 10/06/2020 10/07/2019, 07/29/2012 COVID-19 Vaccine (1 - season) 2023 Influenza Vaccine (Season Ended) 2024 10/07/2019, 11/04/2013, 11/04/2013 Respiratory Syncytial Virus Immunization: Risk, 60-74 Risk, or 75+ (1 - 1-dose 75+ series) 2038 Medical Devices Implanted Type Area Transmission Specialist Device Identifier Shelf Expiration Date Model / Serial / Lot Stent-07/27/2012 Implanted:Qty: 1 on 07/27/2012 Stent Right: Eye [employer] [id number] ISTENT / [id number] / [id number] Description:Non-clinical son ting has demonstrated that the iStent Trabecular Micro-Bypass Stent (Models [id number] and [id number]) is MR Conditional. A patient with this device can be safely scanned in an MR system meeting the following conditions: Static magnetic field of 3T or less Maximum spatial gradient magnetic field of 4,000 gauss/cm (40 T/m) Maximum MR system reported, whole body averaged specific absorption rate (HAFSA) of 4 W/kg (First Level Controlled Operating Mode) Under the scan conditions defined above, the iStent Trabecular Micro-Bypass Stent (Models [id number] and [id number]) is not expected to produce a clinically significant temperature rise after 15 minutes of continuous scanning. In non-clinical testing, the image artifact caused by the device extends less than 15 mm from the device when imaged with a gradient echo pulse sequence and a 3.0 T MRI system Insurance MEDICARE PART A & B PART A CLAIMS [address] [address] [place] [address] [facility] Advance Directives For more information, please contact: [phone] Documents on File Type Date Recorded Patient Air Crew Officer Expl anation Power of Sand Blaster 05/28/2021 12:09 PM Power of Sand Blaster 05/28/2021 12:01 PM * Full Code - Unverified (Latest Code Status on File) Date Activated Date Inactivated Comments 05/18/2021 10:06 PM 05/29/2021 7:56 PM Care Teams Stone Dresser Relationship Specialty Start Date End Date Aamir Purcell DO [address] [place] [address] PCP - General Family Medicine 03/28/17
--- OUTSIDE RECORDS SUMMARY | 2024-07-20 14:24 | XMS_ITS | Encounter Summary ---
Author Organization [facility] Address [address] [place] [address] Care Team Providers Care Glass Worker Name Role Phone Aamir Purcell MD Primary Care Provider [phone] Encounter Details Date Type Department Care Team (Late Contact Info) Description 05/05/2024 Abstract [facility] 112 [facility] [address] [place] [address] Unallocated, Noms Provider, [address] [place] [address] Social History Tobacco Use Types Packs/Day Years [...] Office Visit [facility] [address] [facility] [address] [place] [address] Nadia Quiñones, IT PROFESSIONAL-UPHOLSTERY TECHNICIAN [address] [facility] [address] [place] [address] 09/27/2024 1:15 PM EDT Office Visit [facility] [address] [place] [address] Adilson Johnson, [address] [place] [address] documented as of this encounter Visit Diagnoses Not on filedocumented in this encounter Care Teams Glass Worker Relationship Specialty Start Date End Date Aamir Purcell MD [address] [place] [address] PCP - General Family Medicine 08/12/22 documented as of this encounter
--- OUTSIDE RECORDS SUMMARY | 2024-07-20 14:24 | XMS_ITS | Encounter Summary ---
Author Organization [facility] Address [address] [place] [address] Care Team Providers Care Director Of Development Name Role Phone Aamir Purcell MD Primary Care Provider [phone] Encounter Details Date Type Department Care Team (Late st Contact Info) Description 03/31/2023 Orders Only [facility] 112 [facility] [address] [place] [address] A, Unknown Practice [address] [place], [place] [address] Social History Tobacco Use Types Packs/Day Years [...] Office Visit [facility] [address] [facility] [address] [place] [address] Nadia Quiñones, SOFTBALL WINDER-PETROLEUM ENGINEER [address] [place] [address] 09/27/2024 1:15 PM EDT Office Visit [facility] [address] [place] [address] Adilson Johnson DO [address] [place] [address] documented as of this encounter Procedures Procedure Name Priority Date/Time Associated Diagnosis Comments SCANNED LABS Routine 03/29/2023 1:07 PM EST documented in this encounter Results * SCANNED LABS (03/29/2023 1:07 PM EST) us Unknown Practice A LAB CHG PERFORMABLES Final Re sult documented in this encounter Visit Diagnoses Not on filedocumented in this encounter Care Teams Director Of Development Relationship Specialty Start Date End Date Aamir Purcell MD [address] [place] [id number] PCP - General Family Medicine 08/12/22 documented as of this encounter
--- OUTSIDE RECORDS SUMMARY | 2024-07-20 14:24 | XMS_ITS | Encounter Summary ---
Author Organization [facility] Address [address] [place] [address] Care Team Providers Care Accounting Practice Manager Name Role Phone Aamir Purcell MD Primary Care Provider [phone] Encounter Details Date Type Department Care Team (Late Contact Info) Description 03/11/2024 Abstract [facility] 112 [facility] [address] [place] [address] Unallocated, Noms Provider, [address] [place] [address] Social History Tobacco Use Types Packs/Day Years [...] Office Visit [facility] [address] [facility] [address] [place] [address] Nadia Quiñones, PATROL OFFICER-DOCTOR OF AUDIOLOGY [address] [facility] [address] [place] [address] 09/27/2024 1:15 PM EDT Office Visit [facility] [address] [place] [address] Adilson Johnson, [address] [place] [address] documented as of this encounter Visit Diagnoses Not on filedocumented in this encounter Care Teams Accounting Practice Manager Relationship Specialty Start Date End Date Aamir Purcell MD [address] [place] [address] PCP - General Family Medicine 08/12/22 documented as of this encounter
--- OUTSIDE RECORDS SUMMARY | 2024-07-20 14:24 | XMS_ITS | Encounter Summary ---
Author Organization [facility] Address [address] [place] [address] Care Team Providers Care Carton Marker Machine Name Role Phone Aamir Purcell MD Primary Care Provider [phone] Encounter Details Date Type Department Care Team (Late Contact Info) Description 04/29/2024 Abstract [facility] 112 [facility] [address] [place] [address] Unallocated, Noms Provider, [address] [place] [address] Social History Tobacco Use Types Packs/Day Years [...] Office Visit [facility] [address] [facility] [address] [place] [address] Nadia Quiñones, HUMAN RESOURCES ADMINISTRATOR-PROJECT DIRECTOR [address] [facility] [address] [place] [address] 09/27/2024 1:15 PM EDT Office Visit [facility] [address] [place] [address] Adilson Johnson, [address] [place] [address] documented as of this encounter Visit Diagnoses Not on filedocumented in this encounter Care Teams Carton Marker Machine Relationship Specialty Start Date End Date Aamir Purcell MD [address] [place] [address] PCP - General Family Medicine 08/12/22 documented as of this encounter
--- OUTSIDE RECORDS SUMMARY | 2024-07-20 14:24 | XMS_ITS | Encounter Summary ---
Author Organization [facility] Address [address] [place] [address] Care Team Providers Care Core Winding Operator Name Role Phone Aamir Purcell MD Primary Care Provider [phone] Encounter Details Date Type Department Care Team (Late Contact Info) Description 04/09/2024 Abstract [facility] [address] [facility] [address] [place] [address] Unallocated, Noms Provider, [address] [place] [address] Social History Tobacco Use Types Packs/Day Years [...] Office Visit [facility] [address] [facility] [address] [place] [address] Nadia Quiñones, NAIL MACHINE OPERATOR-COAL HAULER OPERATOR [address] [facility] [address] [place] [address] 09/27/2024 1:15 PM EDT Office Visit [facility] [address] [place] [phone] Adilson Johnson, [address] [place] [address] documented as of this encounter Visit Diagnoses Not on filedocumented in this encounter Care Teams Core Winding Operator Relationship Specialty Start Date End Date Aamir Purcell MD [address] [place] [address] PCP - General Family Medicine 08/12/22 documented as of this encounter
--- OUTSIDE RECORDS SUMMARY | 2024-07-20 14:24 | XMS_ITS | Encounter Summary ---
Author Organization [facility] Address [address] [place] [address] Care Team Providers Care Culinary Art Teacher Name Role Phone Aamir Purcell MD Primary Care Provider [phone] Encounter Details Date Type Department Care Team (Late st Contact Info) Description 12/05/2022 Clinisync Result Encounter [facility] External Department Unsolicited Maine Chávez, INTERVENTIONIST 112 [facility] 110 [place] [address] Social History Tobacco Use Types Packs/Day Years [...] Visit [facility] [address] [facility] [address] [place] [address] Nadia Quiñones, RN SURGERY ICU-MACHINE BINDING FOLDER [address] [facility] [address] [place] [address] 09/27/2024 1:15 PM EDT Office Visit [facility] [address] [place] [phone] Adilson Johnson DO [address] [place] [address] (work) documented as of this encounter Procedures Procedure Name Priority Date/Time Associated Diagnosis Comments CT SPINE LUMBAR W/O CONTRAST 12/05/2022 8:38 AM EDT documented in this encounter Results * CT SPINE LUMBAR W/O CONTRAST (12/05/2022 8:38 AM EDT) Anatomical Region Laterality Modality Other 12/05/2022 8:38 AM EDT Narrative 12/06/2022 10:36 AM EDT Exam Date/Time: 12/05/2022 08:45 EDT Reason for Exam: BACK PAIN Report IMPRESSION: NO FRACTURE. MARKED DIFFUSE DEGENERATIVE CHANGE, LUMBAR SPINE. REMOTE L4-L5 PARTIAL LAMINECTOMY CT LUMBAR SPINE WITHOUT INTRAVENOUS CONTRAST MEDIUM. HISTORY: BACK PAIN TECHNICAL FACTORS: CT lumbar spine obtained and formatted as 2.5 mm contiguous axial images from skull base to the level of. Sagittal and coronal reconstructions were obtained during postprocessing. No contrast medium was utilized. COMPARISON: CT abdomen pelvis, November 09, 2022. MRI lumbar spine, November 14, 2011. FINDINGS: Lumbar vertebral bodies are normal in height and alignment. Diffuse disc space narrowing L4-L5 with prominent bridging anterior osteophytes again identified. Bridging anterior osteophytes also identified L1-L2 through L3-L4. No fractures, dislocations, bone lesions. Remote right L4-L5 partial laminectomy. Limited imaging of the abdomen and pelvis shows no change in 1.3 cm exophytic cyst, medial upper pole left kidney. All CT scans at this facility use dose modulation, iterative reconstruction, and/or weight based dosing when appropriate to reduce radiation dose to as low as reasonably achievable. Ordering Provider: , FINAL REPORT Dictated: 12/06/2022 10:33 am Terence Arcos MD Signed (Electronic Signature): 12/06/2022 10:33 am Signed by: Terence Arcos MD Transcribed by: SINDY Technologist: TAMMIE Procedure Note Radiology, Radiologist, - 12/06/2022 Exam Date/Time: 12/05/2022 08:45 EDT Reason for Exam: BACK PAIN Report IMPRESSION: NO FRACTURE. MARKED DIFFUSE DEGENERATIVE CHANGE, LUMBAR SPINE. REMOTE L4-L5 PARTIAL LAMINECTOMY CT LUMBAR SPINE WITHOUT INTRAVENOUS CONTRAST MEDIUM. HISTORY: BACK PAIN TECHNICAL FACTORS: CT lumbar spine obtained and formatted as 2.5 mm contiguous axial imagesfrom skull base to the level of. Sagittal and coronal reconstructions were obtainedduring postprocessing. No contrast medium was utilized. COMPARISON: CT abdomen pelvis, November 09, 2022. MRI lumbar spine,November 14, 2011. FINDINGS: Lumbar vertebral bodies are normal in height and alignment. Diffuse disc space narrowing L4-L5 with prominent bridging anteriorosteophytes again identified. Bridging anterior osteophytes also identified L1-L2 throughL3-L4. No fractures, dislocations, bone lesions. Remote right L4-L5 partiallaminectomy. Limited imaging of the abdomen and pelvis shows no change in 1.3 cmexophytic cyst, medial upper pole left kidney. All CT scans at this facility use dose modulation, iterativereconstruction, and/or weight based dosing when appropriate to reduce radiation dose to as low asreasonably achievable. Ordering Provider: , FINAL REPORT Dictated: 12/06/2022 10:33 am Terence Arcos MD Signed (Electronic Signature): 12/06/2022 10:33 am Signed by: Terence Arcos MD Transcribed by: SINDY Technologist: TAMMIE us Maine Chávez INTERVENTIONIST [facility] Final Result documented in this encounter Visit Diagnoses Not on filedocumented in this encounter Care Teams Culinary Art Teacher Relationship Specialty Start Date End Date Aamir Purcell MD [address] [id number] PCP - General Family Medicine 08/12/22 documented as of this encounter
--- OUTSIDE RECORDS SUMMARY | 2024-07-20 14:24 | XMS_ITS | Encounter Summary ---
Author Organization [facility] Address [address] [place] [address] Care Team Providers Care Bird Tender Name Role Phone Aamir Purcell MD Primary Care Provider [phone] Encounter Details Date Type Department Care Team (Late Contact Info) Description 05/10/2024 Abstract [facility] [address] [place] [address] Unallocated, Noms Provider, [address] [place] [address] Social History Tobacco Use Types Packs/Day Years [...] Visit [facility] [address] [facility] [address] [place] [address] Nadia Quiñones, DERRICK WORKER WELL SERVICE-SENIOR WINDOWS SYSTEMS ADMINISTRATOR [address] [facility] [address] [place] [address] 09/27/2024 1:15 PM EDT Office Visit [facility] [address] [place] [phone] Adilson Johnson, [address] [place] [address] documented as of this encounter Visit Diagnoses Not on filedocumented in this encounter Care Teams Bird Tender Relationship Specialty Start Date End Date Aamir Purcell MD [address] [place] [address] PCP - General Family Medicine 08/12/22 documented as of this encounter
--- OUTSIDE RECORDS SUMMARY | 2024-07-20 14:24 | XMS_ITS | Clinical Summary ---
Author Organization [facility] Address [address] [place] [address] Care Team Providers Care Bread Distributor Name Role Phone Migue Cole MD Primary Care Provider [phone] Allergies Active Allergy Reactions Criticality Noted Date Comments Moxifloxacin Hydrochloride Rash Low 12/02/2011 Cephalexin Rash Low 12/02/2011 Moxifloxacin Rash High 10/28/2016 Peg 6592-Wwo-Lloyl-Nacl-Nasu lf High 10/28/2016 Tapentadol Other (See Comments) Medium 10/31/2015 Mental status changes Medications aspirin 325 MG tablet Take 325 mg by mouth daily 8 Active tiZANidine (ZANAFLEX) 4 MG tablet Take 1 tablet by mouth as needed Active Multiple Vitamins-Mineral s (MULTIVITAMIN ADULT PO) Take 1 tablet by mouth daily Active brimonidine (ALPHAGAN P) 0.15 % ophthalmic solution Apply 1 drop to eye 2 times daily Left eye 0 Active carvedilol (COREG) 25 MG tablet Take 0.5 tablets by mouth 2 times daily (with meals) Active HYDROcodone-acet aminophen (NORCO) 5-325 MG per tablet Take 1 tablet by mouth every 4 hours as needed for Pain. Active levothyroxine (SYNTHROID) 100 MCG tablet Take 1 tablet by mouth Daily 30 tablet 3 2 Active gabapentin (NEURONTIN) 100 MG capsule Take 2 capsules by mouth 3 times daily for 15 days. 90 capsule 2 Active valproic acid (DEPAKENE) 250 MG/5ML SOLN oral solution Take 5 mLs by mouth in the morning and at bedtime 300 mL 2 Active calcium carbonate-vitami n D3 (CALTRATE) 600-400 MG-UNIT TABS per tab Take 2 tablets by mouth daily 60 tablet 1 2 Active potassium bicarb-citric acid (EFFER-K) 20 MEQ TBEF effervescent tablet 2 tablets by Per NG tube route in the morning, at noon, and at bedtime 120 tablet 2 Active famotidine (PEPCID) 20 MG tablet 1 tablet by Per NG tube route 2 times daily 60 tablet 3 2 Active QUEtiapine (SEROQUEL) 25 MG tablet Take 1 tablet by mouth nightly 60 tablet 3 2 Active Additional Information Patient taking differently:25 mg Oral2 TIMES DAILY, Reported on 08/15/2022 Insulin Detemir (LEVEMIR SC) Inject 12 Units into the skin at bedtime Active metoclopramide (REGLAN) 5 MG/5ML solution Take 5 mLs by mouth 2 times daily Active hydrocortisone 1 % cream Apply topically 2 times daily as needed Apply topically 2 times daily. Rash on arms Active NONFORMULARY Tube feedings per ng tube at 65/hr Active Sodium Polystyrene Sulfonate (KAYEXALATE PO) Take by mouth Given for potassium 5.8 on 08/15/21 Active acetaminophen (TYLENOL) 325 MG tablet Take 2 tablets by mouth every 4 hours as needed for Pain Active albuterol (PROVENTIL) (2.5 MG/3ML) 0.083% nebulizer solution Take 3 mLs by nebulization every 4 hours as needed for Wheezing Active docusate sodium (COLACE) 100 MG capsule Take 1 capsule by mouth every 12 hours as needed for Constipation Active DULoxetine (CYMBALTA) 60 MG extended release capsule Take 1 capsule by mouth daily Active divalproex (DEPAKOTE) [address] tablet Take 1 tablet by mouth in the morning and at bedtime Active ferrous sulfate (IRON 325) 325 (65 Fe) MG tablet Take 1 tablet by mouth daily Active fluocinonide (LIDEX) 0.05 % cream Apply topically at bedtime Apply topically 2 times daily. Active ipratropium 0.5 mg-albuterol 2.5 mg (DUONEB) 0.5-2.5 (3) MG/3ML SOLN nebulizer solution Inhale 3 mLs into the lungs every 6 hours Active HM LIDOCAINE PATCH EX Apply topically Acti ve melatonin 3 MG TABS tablet Take 5 mg by mouth daily Active nitroGLYCERIN (NITROSTAT) 0.[address] 1 tablet under the tongue every 5 minutes as needed for Chest pain up to max of 3 total doses. If no relief after 1 dose, call 911. Active Active Problems Problem Noted Date Diagnosed Date S/P cervical spinal fusion 04/02/2022 Anemia due to blood loss 09/26/2021 Acute respiratory failure 09/25/2021 Ventilator associated pneumonia 09/22/2021 Tracheostomy care 09/22/[address] 09/22/2021 Delirium due to multiple etiologies 09/18/2021 Discharge planning issues 09/16/2021 CSF rhinorrhea 09/11/2021 Other cranial cerebrospinal fluid leak Hypomagnesemia 07/15/2021 COVID 07/14/2021 Metabolic encephalopathy 06/30/2021 MSSA (methicillin susceptibl e Staphylococcus aureus) septicemia 06/30/2021 Sepsis 06/29/2021 Staphylococcus aureus septicemia 06/29/2021 Hypothyroidism 06/29/2021 Hypokalemia 06/29/2021 Type 2 diabetes mellitus with diabetic polyneuro davin 06/29/2021 Primary hypertension 06/29/2021 Altered mental state 06/28/2021 Cellulitis of left finger 07/16/2018 Encephalopathy Toxic metabolic encephalopathy CIDP (chronic inflammatory demyelinating polyneu ropathy) Upper GI bleed Non-intractable vomiting Unintentional weight loss CRP elevated Bandemia Allergy to multiple antibiotics Osteomyelitis of cervical spine Acute intractable headache Septic arthritis of cervical spine 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 Normocytic anemia Acute respiratory failure with hypoxemia Atlantoaxial instability ACP (advance care planning) Goals of care, counseling/discussion Encounter for palliative care Feeding difficulties On tube feeding diet Acute non-recurrent pansinusitis Rhinorrhea Family History Medical History Relation Name Comments Cancer Father Diabetes Mother Relation Name Status Comments Father (Age 82) pancreatic cancer Mother (Age 71) diabetes Social History Tobacco Use Types Packs/Day Years Used Date Smoking Tobacco: Former Cigarettes 0 10/06/1975 - 10/06/1995 Smokeless Tobacco: Never Tobacco Cessation:Counseling Given: Not Answered Alcohol Use Standard Drinks/Week Comments No 0 (1 standard drink = 0.6 oz pur e alcohol) Comments No Sex and Gender Information Value Date Recorded Sex Assigned at Not on file Legal Sex Female 10:05 AM EST Gender Identity Not on file Sexual Orientation Not on file Last Filed Vital Signs Vital Sign Reading Time Taken Comments Blood Pressure 135/83 01/23/2023 10:54 AM EST Pulse 83 01/23/2023 10:54 AM EST Temperature 36.6 C (97.9 F) 01/23/2023 10:54 AM EST Respiratory Rate 18 01/23/2023 10:54 AM EST Oxygen Saturation 98% 01/23/2023 10:54 AM EST Inhaled Oxygen Concentration - - Weight 61.2 kg (135 lb) 01/23/2023 10:54 AM EST Height 165.1 cm (5' 5 ) 08/15/2022 9:03 AM EDT Body Mass Index 22.47 08/15/2022 9:03 AM EDT Plan of Treatment Health Maintenance Due Date Last Done Comments Depression Screen 1975 HIV screen 1978 Diabetic retinal exam 1981 Hepatitis C screen 1981 DTaP/Tdap/Td vaccine (1 - Tdap) 1982 Pap smear 02/07/1984 Cervical cancer screen 1993 HPV (without or with Pap) 1993 Colonoscopy 02/07/2008 Fecal-DNA (Cologuard): Average risk 02/07/2008 Sigmoidoscopy/CT colonography 02/07/2008 Shingles vaccine (2 of 3) 12/30/2013 11/04/2013 Diabetic Alb to Cr ratio (uACR) test 06/25/2014 06/25/2013 Breast cancer screen 04/04/2019 04/04/2017 Pneumococcal 50+ years Vaccine (2 of 2 - PCV) 10/06/2020 10/07/2019, 07/29/2012 Lipids 06/28/2022 06/28/2021, 06/17, 06/25/2013, Additional history exists Diabetic foot exam 06/30/2022 06/30/2021 Colorectal Cancer Screen 07/24/2022 FIT/FOBT: Average risk 07/24/2022 07/24/2021 A1C test (Diabetic or Prediabetic) 09/09/2022 09/09/2021, 06/28/2021, 07/19/2017, Additional history exists GFR test (Diabetes, CKD 3-4, OR last GFR 15-59) 09/27/2022 09/27/2021, 09/25/2021, 09/24/2021, Additional history exists Annual Wellness Visit (Medicare) 01/13/2023 Respiratory Syncytial Virus (RSV) or age 60 yrs+ (1 - Risk 60-74 years 1-dose series) 2023 COVID-19 Vaccine ( season) 2023 Flu vaccine (Season Ended) 2024 10/07/2019, Pneumococcal 0-49 years Vaccine Discontinued 10/07/2019, 07/29/2012 Hepatitis A vaccine Aged Out No longe r eligible based on patient's age to complete this topic Hepatitis B vaccine Aged Out No longe r eligible based on patient's age to complete this topic Hib vaccine Aged Out No longer eligi ble based on patient's age to complete this topic Meningococcal (ACWY) vaccine Aged Out No longer eligible based on patient's age to complete this topic Meningococcal B vaccine Aged Out No l onger eligible based on patient's age to complete this topic Polio vaccine Aged Out No longer elig ible based on patient's age to complete this topic Medical Devices Implanted Type Area Greenhouse Florist Device Identifier Shelf Expiration Date Model / Serial / Lot System Spnl Seal 3ml Exact Duraseal - [id number] Implanted:Qty: 1 on 07/06/2021 by Ban Cevallos DO at [facility] N/A: Spine Cervical [employer]RA Zounds Hearing AidsCIENCES BRETT-WD 09/27/2022 [id number] / / Kit Bne Grft Xsm 1.4cc Rhbmp-2 Absrb Cllgn Spng Infuse - [id number] Implanted:Qty: 1 on 09/25/2021 by Ban Cevallos DO at [facility] N/A: Spine Cervical [employer] SPINALGRAFT TECH-WD 02/16/2023 [id number] / [id number] / [id number] Graft Cellr Bne Matrx Influx Sparc 5cc - [id number] Implanted:Qty: 1 on 09/25/2021 by Ban Cevallos DO at [facility] N/A: Spine Cervical [employer]-WD 05/04/2023 [id number] / [id number] / [id number] Graft Cellr Bne Matrx Influx [facility] 5c - [id number] Implanted:Qty: 1 on 09/25/2021 by Ban Cevallos DO at [facility] N/A: Spine Cervical [employer]-WD 05/04/2023 [id number] / [id number] / [id number] Screw Spnl L34mm Eia51am Occipitocervical Up Thor Multiaxial - [id number] Implanted:Qty: 2 on 09/25/2021 by Ban Cevallso DO at [facility] N/A: Spine Cervical [employer] SOFAMOR DANEK-WD [id number] / / Bishnu Spnl L25mm Dia3.5mm Occipitocervical Up Thor Precut - [id number] Implanted:Qty: 2 on 09/25/2021 by Ban Cevallos DO at [facility] N/A: Spine Cervical [employer] SOFAMOR DANEK-WD [id number] / / Set Screw Spinal M6 - [id number] Implanted:Qty: 4 on 09/25/2021 by Ban Cevallos DO at [facility] N/A: Spine Cervical [employer] SOFAMOR DANEK-WD [id number] / / Procedures Procedure Name Priority Date/Time Associated Diagnosis Comments BASIC METABOLIC PANEL W/ REFLEX TO MG FOR LOW K Routine 09/27/2021 2:38 AM EDT HEMOGLOBIN A1C Routine 09/09/2021 7:34 AM EDT OCCULT BLOOD SCREEN Stat [employer] Label print 07/24/2021 2:30 PM EDT LIPID PANEL Routine 06/28/2021 9:38 PM EDT MICROALBUMIN, UR Routine 06/25/2013 7:05 AM EDT from Last 3 Months or Most Recently Relevant to Health Maintenance Results * (ABNORMAL) Basic Metabolic Panel w/ Reflex to MG (09/27/2021 2:38 AM EDT) Glucose 171(H) 70 - 99 mg/dL 09/27/2021 2:38 AM EDT [facility] BUN 12 6 - 20 mg/dL 09/27/2021 2:38 AM EDT [facility] Creatinine 0.54 0.50 - 0.90 mg/dL 09/27/2021 2:38 AM EDT [facility] Calcium 9.1 8.6 - 10.4 mg/dL 09/27/2021 2:38 AM EDT [facility] Sodium 143 135 - 144 mmol/L 09/27/2021 2:38 AM EDT [facility] Potassium 3.2(L) 3.7 - 5.3 mmol/L 09/27/2021 2:38 AM EDT [facility] Chloride 107 98 - 107 mmol/L 09/27/2021 2:38 AM EDT [facility] CO2 22 20 - 31 mmol/L 09/27/2021 2:38 AM EDT [facility] Anion Gap 14 9 - 17 mmol/L 09/27/2021 2:38 AM EDT [facility] GFR Non- >60 >60 mL/min 09/27/2021 2:38 AM EDT [facility] GFR >60 >60 mL/min 09/27/2021 2:38 AM EDT [facility] GFR Comment 09/27/2021 2:38 AM EDT [facility] Comment: Average GFR for 50-59 years old: 93 mL/min/1.73sq m Chronic Kidney Disease: <60 mL/min/1.73sq m Kidney failure: <15 mL/min/1.73sq m eGFR calculated using average adult body mass. Additional eGFR calculator available at: http://www.[employer].com/multiple_crcl_2012.htm BLOOD SPECIMEN / Unknown 09/27/2021 2:38 AM EDT 09/27/2021 2:42 AM EDT us Darleen Carmona MD CHEMISTRY ORDERABLES Edited Resu lt - Final Performing Organization Address [facility] Co de Phone Number [facility] [address] [place] [address] * Hemoglobin A1C (09/09/2021 7:34 AM EDT) Hemoglobin A1C 5.1 4.0 - 6.0 % 09/09/2021 7:34 AM EDT [facility] Estimated Avg Glucose 100 mg/dL 09/09/2021 7:34 AM EDT [facility] Comment: The ADA and AACC recommend providing the estimated average glucose result to permit better patient understanding of their HBA1c result. 09/09/2021 7:34 AM EDT 09/09/2021 8:11 AM EDT Chris Lassiter MD CHEMISTRY ORDERABLES Final Resul t Performing Organization Address [facility] Co de Phone Number [facility] [address] [place] [address] * (ABNORMAL) OCCULT BLOOD SCREEN (07/24/2021 2:30 PM EDT) Pathologist [facility] Occult Blood, Stool #1 POSITIVE( A) NEGATIVE 07/24/2021 2:30 PM EDT [facility] Date, Stool #1 [phone] 07/24/2021 2:30 PM EDT [facility] Time, Stool #1 [id number] 07/24/2021 2:30 PM EDT [facility] STOOL SPECIMEN / Unknown 07/24/2021 2:30 PM EDT 07/25/2021 12:13 AM EDT Xin Grove MD BODY FLUIDS AND STOOLS ORDERABLE S Final Result Performing Organization Address [facility] Co de Phone Number [facility] [address] [place] [address] * LIPID PANEL (06/28/2021 9:38 PM EDT) Pathologist [facility] Cholesterol 155 <200 mg/dL 06/28/2021 9:38 PM EDT [facility] Comment: Cholesterol Guidelines: <200 Desirable 200-240 Borderline >240 Undesirable HDL 71 >40 mg/dL 06/28/2021 9:38 PM EDT [facility] Comment: HDL Guidelines: <40 Undesirable 40-59 Borderline >59 Desirable LDL Cholesterol 63 0 - 130 mg/dL 06/28/2021 9:38 PM EDT [facility] Comment: LDL Guidelines: <100 Desirable 100-129 Near to/above Desirable 130-159 Borderline >159 Undesirable Direct (measured) LDL and calculated LDL are not interchangeable tests. Chol/HDL Ratio 2.2 <5 06/28/2021 9:38 PM EDT [facility] Comment: Triglycerides 105 <150 mg/dL 06/28/2021 9:38 PM EDT [facility] Comment: Triglyceride Guidelines: <150 Desirable 150-199 Borderline 200-499 High >499 Very high Based on AHA Guidelines for fasting triglyceride, November 2011. BLOOD SPECIMEN / Unknown 06/28/2021 9:38 PM EDT 06/28/2021 9:38 PM EDT Jenifer Jewell MD CHEMISTRY ORDERABLES Final Result [facility] [address] [phone] * Microalbumin, Ur (06/25/2013 7:05 AM EDT) Albumin Urine 12 <21 mg/L 06/25/2013 9:11 PM EDT [facility] Creatinine, Ur 166.1 39.0 - 259.0 mg/dL 06/25/2013 9:11 PM EDT [facility] Comment: The reference range and other method performance specifications have not been established for this body fluid. The test result must be integrated into the clinical context for interpretation. [employer]/Public Relations Director. Ratio 7 mcg/mg creat 06/25/2013 9:11 PM EDT [facility] Urine Microalbumin Interp 06/25/2013 9:11 PM EDT [facility] Comment: REFERENCE RANGE NORMAL = 0 - 13 mcg/mg creat BORDERLINE = 14 - 30 mcg/mg creat ABNORMAL = >30 mcg/mg creat Performed at [facility] [address] [place] [address] 06/25/2013 7:05 AM EDT 06/25/2013 7:06 AM EDT us Tobias Cui MD URINE ORDERABLES Edited Resu lt - Final [facility] [address] [place] [address], [facility] [phone] [facility] from Last 3 Months or Most Recently Relevant to Health Maintenance Insurance MEDICARE [facility] [place]ICAID [place] MEDICARE MEDICARE Advance Directives Documents on File Type Date Recorded Patient Decatizer Expl anation ACP-Advance Directive 08/13/2021 4:27 PM * Full Code (Latest Code Status on File) Date Activated Date Inactivated Comments 08/22/2021 1:31 AM 09/28/2021 2:06 PM * Full Code Date Activated Date Inactivated Comments 07/14/2021 4:39 PM 08/11/2021 12:08 AM * Full Code Date Activated Date Inactivated Comments 06/28/2021 9:07 PM 07/10/2021 7:03 PM Healthcare Agents on File Name Relationship Healthcare Agent Relationship Communication Cheli Thomas Brother/Sister Primary Decision Maker Eun Polo Other Supplemental (Ot her) Decision Maker Care Teams Bread Distributor Relationship Specialty Start Date End Date Migue Cole MD [address] [place] [address] PCP - General Internal Medicine 08/14/21
--- OUTSIDE RECORDS SUMMARY | 2024-07-20 14:24 | XMS_ITS | Encounter Summary ---
Author Organization [facility] Address [address] [place] [address] Care Team Providers Care Pedicab Driver Name Role Phone Aamir Purcell MD Primary Care Provider [phone] Encounter Details Date Type Department Care Team (Late Contact Info) Description 04/19/2024 Abstract [facility] [address] [facility] [address] [place] [address] Unallocated, Noms Provider, [address] [place] [address] Social History Tobacco Use Types Packs/Day Years [...] Office Visit [facility] [address] [facility] [address] [place] [address] Nadia Quiñones, AED TRAINER-UI UX DEVELOPER [address] [facility] [address] [place] [address] 09/27/2024 1:15 PM EDT Office Visit [facility] [address] [place] [address] Adilson Johnson, [address] [place] [address] documented as of this encounter Visit Diagnoses Not on filedocumented in this encounter Care Teams Pedicab Driver Relationship Specialty Start Date End Date Aamir Purcell MD [address] [place] [address] PCP - General Family Medicine 08/12/22 documented as of this encounter
--- OUTSIDE RECORDS SUMMARY | 2024-07-20 14:24 | XMS_ITS | Clinical Summary ---
Author Organization [facility] Address [address] [place] [address] Care Team Providers Care Inspection Clerk Name Role Phone House, Aamir Parker MD Primary Care Provider [phone] Allergies Active Allergy Reactions Criticality Noted Date Comments Cephalexin Hives,Itching,Unknow n,Rash,Swelling High 12/02/2011 burning Moxifloxacin Itching,Unknown,Rash ,Swelling High 12/02/2011 Abdominal pain Peg 6901-Pph-Olllg-Nacl-Mello ulf High 10/28/2016 Tapentadol Unknown High 02/04/2014 Mental status changes Passed out Medications acetaminophen-c odeine (TYLENOL/CODEIN E #3) 300-30 MG tablet Take 1 tablet twice a day by oral route as needed. Active albuterol (2.5 MG/3ML) 0.083% nebulizer solution Take 3 mL by nebulization every 4 (four) hours if needed Active amitriptyline (Elavil) 25 MG tablet Take 1 tablet as needed by oral route. Active carvedilol (Coreg) 12.5 MG tablet 4 Active divalproex (Depakote ER) 500 MG 24 hr tablet 4 Active DULoxetine (Cymbalta) [address] capsule Take 1 capsule by mouth Daily Active insulin degludec (Tresiba FlexTouch) 100 UNIT/ML injection Inject by subcutaneous route. Active Basaglar KwikPen 100 UNIT/ML pen 4 Active levothyroxine (Tirosint) 112 MCG capsule Take 1 capsule every day by oral route. Active omeprazole (PriLOSEC) [address] capsule 4 Active sucralfate (Carafate) 1 GM/10ML suspension 4 Active tiZANidine (Zanaflex) 4 MG tablet Take 1 tablet as needed by oral route. Active zonisamide (Zonegran) 100 MG capsule Take 1 capsule 3 times a day by oral route. Active fluocinonide (Lidex) 0.05 % ointmentIndicat ions:Other atopic dermatitis Apply topically 2 (two) times a day as needed for rash 180 g 11 4 08/19/19 25 Active brimonidine (AlphaGAN P) 0.2 % ophthalmic solution 5 Active doxycycline (Vibramycin) 100 MG capsule 5 Active glipiZIDE (Glucotrol) 10 MG tablet 1 (one) time each day at the same time Active HYDROcodone-felicita taminophen (Benjamin) 5-325 MG tablet Take 1 tablet by mouth every 4 (four) hours if needed Active meclizine (Antivert) 25 MG tablet 5 Active traMADol (Ultram) 50 MG tablet 4 Active Active Problems Problem Noted Date Diagnosed Date Primary open angle glaucoma (POAG) of both eyes, moderate stage 06/28/2024 Left posterior capsular opacification 06/28/2024 Mild nonproliferative diabet ic retinopathy of both eyes without macular edema associated with type 2 diabetes mellitus 06/28/2024 Dry eyes 06/28/2024 Encounters Date Type Department Care Team Description 06/28/2024 2:15 PM EDT Consult [facility] [address] [place] [address] Adilson Johnson, Primary open angle glaucoma (POAG) of both eyes, moderate stage (Primary Dx); 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 mellitus (CMS/HCC); Left posterior capsular opacification; Dry eyes 06/28/2024 Travel 06/28/2024 Abstract [facility] [address] [facility] [address] [place] [address] Unallocated, Noms MD Garrick 06/08/2024 Abstract [facility] FM [address] [place] [address] Unallocated, Noms ProviderMD 05/10/2024 Abstract [facility] [address] [place] [address] Unallocated, Noms ProviderMD 05/05/2024 Abstract [facility] [address] [place] [address] Unallocated, Noms ProviderMD 05/03/2024 Abstract [facility] [address] [place] [address] Unallocated, Noms ProviderMD 04/29/2024 Abstract [facility] [address] [place] [address] Unallocated, Noms ProviderMD 04/19/2024 Abstract [facility] [address] [facility] [address] [place] [address] Unallocated, Noms ProviderMD 04/19/2024 Abstract [facility] [address] [facility] [address] [place] [address] Unallocated, Noms ProviderMD from Last 3 Months Social History Tobacco Use Types Packs/Day Years Used Date Smoking Tobacco: Never Assessed Comments Unknown Sex and Gender Information Value Date Recorded Sex Assigned at Not on file Legal Sex Female 6:48 PM EDT Gender Identity Not on file Sexual Orientation Not on file Last Filed Vital Signs Vital Sign Reading Time Taken Comments Blood Pressure - - Pulse - - Temperature - - Respiratory Rate - - Oxygen Saturation - - Inhaled Oxygen Concentration - - Weight 68.9 kg (152 lb) 04/03/2021 12:00 PM EST Height 165.1 cm (5' 5 ) 04/26/2022 12:00 PM EST Body Mass Index 25.29 04/03/2021 12:00 PM EST Plan of Treatment Upcoming Encounters Date Type Department Care Team (Late st Contact Info) Description 08/17/2024 10:50 AM EDT Office Visit [facility] [address] [place] [address] Nadia Quiñones, PINKED EDGE SEWING MACHINE OPERATOR-SCALE SHOOTER [address] [place] [address] 09/27/2024 1:15 PM EDT Office Visit [facility] [address] [place] [address] Adilson Johnson, DO [address] [place] [address] Procedures Procedure Name Priority Date/Time Associated Diagnosis Comments OCT, OPTIC NERVE - OU - BOTH EYES Routine 06/28/2024 2:15 PM EDT Primary open angle glaucoma (POAG) of both eyes, moderate stage from Last 3 Months Results * OCT, Optic Nerve - OU - Both Eyes (06/28/2024 2:15 PM EDT) Anatomical Region Laterality Modality Head Optical Coherenc e Tomography Narrative 06/30/2024 4:40 PM EDT Right Eye Images reviewed and comparison made to baseline, Images reviewed. To assess optic nerve function and for use in future follow-up. Reliability: good and adequate. Left Eye Images reviewed and comparison made to baseline, Images reviewed. To assess optic nerve function and for use in future follow-up. Reliability: good and adequate. 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 Adilson Johnson DO OPHTH TOMOGRAPHY Edited Res ult - Final from Last [address] [facility] [place]ICAID [place] Care Teams Inspection Clerk Relationship Specialty Start Date End Date Aamir Purcell MD [address] [place] [address] PCP - General Family Medicine 08/12/22
--- OUTSIDE RECORDS SUMMARY | 2024-07-20 14:24 | XMS_ITS | Encounter Summary ---
Author Organization [facility] Address [address] [place] [address] Care Team Providers Care Carton Making Machinist Name Role Phone Aamir Purcell MD Primary Care Provider [phone] Encounter Details Date Type Department Care Team (Late Contact Info) Description 06/08/20[address] Abstract [facility] [address] [facility] [address] [place] [address] Unallocated, Noms Provider, [address] [place] [address] Social History Tobacco Use Types Packs/Day Years [...] Office Visit [facility] [address] [facility] [address] [place] [address] Nadia Quiñones, FURNACE RELINER-RESEARCH ANIMAL ATTENDANT [address] [facility] [address] [place] [address] 09/27/2024 1:15 PM EDT Office Visit [facility] [address] [place] [address] Adilson Johnson, [address] [place] [address] documented as of this encounter Visit Diagnoses Not on filedocumented in this encounter Care Teams Carton Making Machinist Relationship Specialty Start Date End Date Aamir Purcell MD [address] [place] [address] PCP - General Family Medicine 08/12/22 documented as of this encounter
--- OUTSIDE RECORDS SUMMARY | 2024-07-20 14:24 | XMS_ITS | Encounter Summary ---
Author Organization [facility] Address [address] [place] [address] Care Team Providers Care Counter Manager Name Role Phone Aamir Purcell MD Primary Care Provider [phone] Encounter Details Date Type Department Care Team (Late Contact Info) Description 06/28/2024 [address] [facility] [address] [facility] [address] [place] [address] Unallocated, Noms Provider, [address] [place] [address] Social History Tobacco Use Types Packs/Day Years [...] Visit [facility] [address] [facility] [address] [place] [address] Nadia Quiñones, PRESCHOOL TEACHER ASSISTANT-ROUTE SPECIALIST [address] [facility] [address] [place] [address] 09/27/2024 1:15 PM EDT Office Visit [facility] [address] [place] [address] Adilson Johnson, [address] [place] [address] documented as of this encounter Visit Diagnoses Not on filedocumented in this encounter Care Teams Counter Manager Relationship Specialty Start Date End Date Aamir Purcell MD [address] [place] [address] PCP - General Family Medicine 08/12/22 documented as of this encounter
--- OUTSIDE RECORDS SUMMARY | 2024-07-20 14:24 | XMS_ITS | Encounter Summary ---
Author Organization [facility] Address [address] [place] [address] Care Team Providers Care Pearl Stringer Name Role Phone Aamir Purcell MD Primary Care Provider [phone] Encounter Details Date Type Department Care Team (Late st Contact Info) Description 11/25/2022 Orders Only [facility] [address] [facility] [address] [place] [address] A, Unknown Practice [address] [place], [place] [address] Social History Tobacco Use Types Packs/Day Years [...] Office Visit [facility] [address] [facility] [address] [place] [address] Nadia Quiñones, BARREL LOADER-EMG TECHNICIAN [address] [place] [address] 09/27/2024 1:15 PM EDT Office Visit [facility] [address] [place] [address] Adilson Johnson DO [address] [place] [address] documented as of this encounter Procedures Procedure Name Priority Date/Time Associated Diagnosis Comments SCANNED LABS Routine 11/23/2022 9:24 AM EDT documented in this encounter Results * SCANNED LABS (11/23/2022 9:24 AM EDT) us Unknown Practice A LAB CHG PERFORMABLES Final Re sult documented in this encounter Visit Diagnoses Not on filedocumented in this encounter Care Teams Pearl Stringer Relationship Specialty Start Date End Date Aamir Purcell MD [address] [place] [id number] PCP - General Family Medicine 08/12/22 documented as of this encounter
--- OUTSIDE RECORDS SUMMARY | 2024-07-20 14:24 | XMS_ITS | Clinical Summary ---
Author Organization [facility] Address [address] [place] [address] Phone Care Team Providers Care Striper Machine Name Role Phone Physician, Pcp Unknown Primary Care Provider Dayanna vailable Allergies Active Allergy Reactions Criticality Noted Date Comments Cephalexin 04/05/2021 Tapentadol Unknown 04/05/2021 Medications insulin lispro (HumaLOG) 100 unit/mL injection Inject under the skin 3 (three) times a day before meals. Per sliding scale Active levothyroxine (SYNTHROID, LEVOTHROID) 50 mcg tablet Take 50 mcg by mouth 1 (one) time each day before breakfast. Active ezetimibe (ZETIA) 10 mg tablet Take 10 mg by mouth 1 (one) time each day. Active dorzolamide-tasha oloL (COSOPT) 22.3-6.8 mg/mL ophthalmic solution Administer 1 drop into both eyes 2 (two) times a day. Active netarsudiL (Rhopressa) 0.02 % drops Administer 1 drop into both eyes at bedtime. Active insulin degludec (Tresiba FlexTouch U-100) 100 unit/mL (3 mL) injection pen Inject 25 Units under the skin at bedtime. Active cholecalciferol (VITAMIN D-3) 50 mcg (2,000 unit) tablet Take 2,000 Units by mouth 1 (one) time each day. Active cyanocobalamin (VITAMIN B-12) 1,000 mcg tablet Take 1,000 mcg by mouth 1 (one) time each day. Active alpha lipoic acid 300 mg capsule Take 300 mg by mouth 2 (two) times a day if needed (pain). Active Active Problems Problem Noted Date Diagnosed Date Polyneuropathy 04/06/2021 Dizziness 04/06/2021 Chest pain of unknown etiology 04/05/2021 Medical History Medical History Date Comments Diabetes mellitus (CMS/[facility] V24, [facility] V28) Social History Tobacco Use Types Packs/Day Years Used Date Smoking Tobacco: Never Smokeless Tobacco: Never Alcohol Use Standard Drinks/Week Comments Not Currently 0 (1 standard drink = 0.6 oz pur e alcohol) Housing Instability Answer Date Recorde d Are you worried that in the next 2 months you may not have stable housing? No 04/05/2021 Food Access & Nutrition Answer Date Rec orded Do you have access to a vari ety of food including fruits and vegetables? No 04/05/2021 Access to Healthcare Answer Date Record ed Within the last 3 months, ho w many times did you visit the emergency department for your medical care? 1 04/05/2021 Health Literacy Answer Date Recorded How often do you need to hav e someone help you when you read instructions, pamphlets, or other written material from your doctor or pharmacy? Never 04/05/2021 Caregiver: How often do you need to have someone help you when you read instructions, pamphlets, or other written material from your doctor or pharmacy? Not on file 04/05/2021 Financial Risk Answer Date Recorded How hard is it for you to pa y for the very basics like food, housing, medical care, and air conditioning / heating? Not very hard 04/05/2021 Transportation Answer Date Recorded Has the lack of transportati on kept you from meetings, work, or from getting things needed for daily living? No Has the lack of transportati on kept you from medical appointments or from getting medications? No 04/05/2021 Social Isolation Answer Date Recorded How often do you feel lonely or isolated from th ose around you? Never 04/05/2021 Food Risk Answer Date Recorded Within the past 12 months we worried whether our food would run out before we got money to buy more. Never true 04/05/2021 Within the past 12 months th e food we bought just didn't last and we didn't have money to get more. Never true 04/05/2021 Comments Unknown Sex and Gender Information Value Date Recorded Sex Assigned at Not on file Legal Sex Female 1:23 PM EST Gender Identity Not on file Sexual Orientation Not on file Obstetrics History Last Filed Vital Signs Vital Sign Reading Time Taken Comments Blood Pressure 134/81 04/06/2021 7:37 PM EST Pulse 94 04/06/2021 7:37 PM EST Temperature 36.5 C (97.7 F) 04/06/2021 7:37 PM EST Respiratory Rate 18 04/06/2021 7:37 PM EST Oxygen Saturation 100% 04/06/2021 7:37 PM EST Inhaled Oxygen Concentration - - Weight 67 kg (147 lb 11.3 oz) 04/06/2021 10:26 A M EST Height 152 cm (4' 11.84 ) 04/06/2021 10:26 AM ES T Body Mass Index 29 04/06/2021 10:26 AM EST Plan of Treatment Health Maintenance Due Date Last Done Comments Breast Cancer Screening 1965 COVID-19 Vaccine (#1) 02/07/1968 Diabetes: Annual Foot Exam 1973 DTaP,Tdap,and Td Vaccines (1 - Tdap) 1982 Cervical Cancer Screening: Pap Smear 02/07/1984 Zoster Vaccines (1 of 2) 12/30/2013 11/04/2013 Pneumococcal Vaccine: 50+ Years (2 of 2 - PCV) 10/06/2020 10/07/2019, 07/29/2012 Pneumococcal Vaccine: Pediatrics (0 to 5 Years) and At-Risk Patients (6 to 64 Years) (2 of 2 - PCV) 10/06/2020 10/07/2019, 07/29/2012 Colorectal Cancer Screening: Colonoscopy 04/05/2021 Depression Screening 04/05/2021 HIV Screening 04/05/2021 Hepatitis C Screening 04/05/2021 Medicare Annual Wellness Visit 04/05/2021 Social Influencers of Health Screening 04/05/2021 Diabetes: Blood Sugar Control Test (HGBA1C) 10/04/2021 04/06/2021, 03/15/2021, 03/15/2021 Diabetes: Annual Retina Eye Exam 02/14/2022 02/14/2021 Diabetes: Annual Urine Albumin-Creatinine Ratio (uACR) 03/15/2022 03/15/2021 Diabetes: Annual GFR (Glomerular Filtration Rate) 04/06/2022 04/06/2021, 04/05/2021, 03/15/2021, Additional history exists Hypertension/CHF/CAD Annual BMP Blood Test 04/06/2022 04/06/2021, 04/05/2021, 03/15/2021, Additional history exists RSV Immunization Adult Patients (1 - Risk 60-74 years 1-dose series) 2023 Influenza Vaccine (Season Ended) 2024 10/07/2019, 11/04/2013, 11/04/2013 Cholesterol Screening (Lipid Panel) 03/15/2026 03/15/2021, 03/15/2021 HIB Vaccines Aged Out No longer eligi ble based on patient's age to complete this topic HPV Vaccines Aged Out No longer eligi ble based on patient's age to complete this topic Hepatitis A Vaccines Aged Out No long er eligible based on patient's age to complete this topic Hepatitis B Vaccines Aged Out No long er eligible based on patient's age to complete this topic IPV Vaccines Aged Out No longer eligi ble based on patient's age to complete this topic MMR Vaccines Aged Out No longer eligi ble based on patient's age to complete this topic Meningococcal ACWY Vaccine Aged Out N o longer eligible based on patient's age to complete this topic Meningococcal B Vaccine Aged Out No l onger eligible based on patient's age to complete this topic RSV Immunization Patients Under 20 months Aged Out No longer eligible based on patient's age to complete this topic Varicella Vaccines Aged Out No longer eligible based on patient's age to complete this topic Procedures Procedure Name Priority Date/Time Associated Diagnosis Comments COMPREHENSIVE METABOLIC PANEL Routine 04/06/2021 4:22 AM EST HEMOGLOBIN A1C Routine 04/06/2021 12:42 AM EST from Last 3 Months or Most Recently Relevant to Health Maintenance Results * (ABNORMAL) Comprehensive metabolic panel (04/06/2021 4:22 AM EST) Sodium 136 136 - 145 mmol/L LAB CHEMISTRY METHOD 04/06/2021 5:31 AM EST [facility] Potassium 4.2 3.6 - 5.1 mmol/L LAB CHEMISTRY METHOD 04/06/2021 5:31 AM EST [facility] Chloride 106 98 - 107 mmol/L LAB CHEMISTRY METHOD 04/06/2021 5:31 AM EST [facility] CO2 21(L) 22 - 32 mmol/L LAB CHEMISTRY METHOD 04/06/2021 5:31 AM [facility] Anion Gap 9 6 - 18 LAB CHEMISTRY METHOD 04/06/2021 5:31 AM [facility] Glucose 192(H) 70 - 99 mg/dL LAB CHEMISTRY METHOD 04/06/2021 5:31 AM [facility] BUN 22(H) 8 - 20 mg/dL LAB CHEMISTRY METHOD 04/06/2021 5:31 AM [facility] Creatinine 1.06 0.60 - 1.30 mg/dL LAB CHEMISTRY METHOD 04/06/2021 5:31 AM [facility] eGFR 58 mL/min/1. 73m2 LAB CHEMISTRY METHOD 04/06/2021 5:31 AM [facility] BUN/Creatinine Ratio 20.8(H) 12.0 - 20.0 LAB CHEMISTRY METHOD 04/06/2021 5:31 AM [facility] Calcium 9.0 8.9 - 10.3 mg/dL LAB CHEMISTRY METHOD 04/06/2021 5:31 AM [facility] AST (SGOT) 14(L) 15 - 41 unit/L LAB CHEMISTRY METHOD 04/06/2021 5:31 AM [facility] ALT (SGPT) 11 7 - 52 unit/L LAB CHEMISTRY METHOD 04/06/2021 5:31 AM [facility] Alkaline Phosphatase 88 32 - 91 unit/L LAB CHEMISTRY METHOD 04/06/2021 5:31 AM [facility] Total Protein 6.3 6.1 - 7.9 g/dL LAB CHEMISTRY METHOD 04/06/2021 5:31 AM [facility] Albumin 3.4(L) 3.5 - 4.8 g/dL LAB CHEMISTRY METHOD 04/06/2021 5:31 AM EST [facility] Total Bilirubin 0.4 0.3 - 1.2 mg/dL LAB CHEMISTRY METHOD 04/06/2021 5:31 AM EST [facility] Blood Venous blood specimen / Unknown Venipuncture / Unknown 04/06/2021 4:22 AM EST 04/06/2021 5:03 AM EST us Sin Carlson MD LAB BLOOD ORDERABLES Final Resul t [facility] [address] [place] [address] * (ABNORMAL) Hemoglobin A1c (04/06/2021 12:42 AM EST) Hemoglobin A1C 11.8(H) <=5.6 % LAB CHEMISTRY METHOD 04/06/2021 12:31 PM EST [facility] Comment: HbA1c values of 5.7-6.4 percent indicate an increased risk for developing diabetes mellitus. HbA1c values greater than or equal to 6.5 percent are diagnostic of diabetes mellitus. For diagnosis of diabetes in individuals without unequivocal hyperglycemia, results should be confirmed by repeat testing. Mean Bld Glu Estim. 292 mg/dL LAB CHEMISTRY METHOD 04/06/2021 12:31 PM EST [facility] ([facility]) [facility] Blood Venous blood specimen / Unknown Venipuncture / Unknown 04/06/2021 12:42 AM EST 04/06/2021 12:50 AM EST us Sin Carlson MD LAB BLOOD ORDERABLES Final Resul t [facility] ([facility] LAB [address] [place] [address] from Last 3 Months or Most Recently Relevant to Health Maintenance Insurance MEDICARE [facility] Advance Directives * Full Code (Latest Code Status on File) Date Activated Date Inactivated Comments 04/05/2021 9:57 PM 04/06/2021 10:03 PM This code s tatus was ascertained in the following way: Code status discussion: discussion with patient To update the patient's code status, place a code status order. Do not modify or discontinue any currently active code status orders. * Full Code - Default Date Activated Date Inactivated Comments 04/05/2021 5:43 PM 04/05/2021 9:57 PM This is orde r is used when code status has not been discussed with the patient, or code status is otherwise unknown/unconfirmed To update the patient's code status, place a code status order. Do not modify or discontinue any currently active code status orders. Care Teams Striper Machine Relationship Specialty Start Date End Date Physician, Pcp Unknown PCP - General 04/05/21
== END 2024-07-20 14:21 | disposition home or self-care (01) ==
LOC: WC 14:20
PROVIDERS: PCP Family Medicine; Visit Provider Physician Assistant
DX: E11.621 Type 2 diabetes mellitus with foot ulcer (principal); L97.512 Non-pressure chronic ulcer of other part of right foot with fat layer exposed; L97.422 Non-pressure chronic 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
CPT/HCPCS: 11043; G0463

== ENCOUNTER 2024-08-10 08:46 | Outpatient (OUT) | payer MEDICARE, OTHER, MEDICAID, SELFPAY ==
--- NOTE | 2024-08-10 08:30 | CA_ITS ---
The [facility] Test Date: 2024-08-10 Pat Name: MEG FERNANDEZ Department: Room: - Gender: Female Distribution Tech: : 1965 Requested By: Marlene Lopez Order Number: [id number] Zack MD: FELIPA ALANIS M.D. Interpretive Statements Summary of the findings: Right leg: NICK= 1.19; TBI= 0.85. Doppler waveforms demonstrate biphasic flow at the posterior tibial and dorsalis pedis arteries. Left leg: NICK= 1.14; TBI= 0.83. Doppler waveforms demonstrate biphasic flow at the posterior tibial and dorsalis pedis arteries. Segmental pressures: Segmental pressures suggest bilateral femoropopliteal disease. Pulse volume recordings: PVRs at the high thigh, below knee, and ankle levels show grossly normal waveforms. Conclusion: Right and left ankle-brachial indices are suggestive of normal overall arterial flow at rest. Toe-brachial indices are not suggestive of PAD. Segmental pressures show possible bilateral femoropopliteal disease. Pulse volume recordings indicate good overall resting arterial flow. 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 Electronically Signed On 08-10-2024 22:07:46 EDT by FELIPA ALANIS M.D.
--- NOTE | 2024-08-10 09:47 | XR_ITS ---
The [address] [address] Patient Name: MEG FERNANDEZ MRN: [id number] date: 1965 Sex: F Assigned Patient Location: CARD Current Patient Location: CARD Accession/Order Number: [id number] Exam Date: 08/10/2024 11:59 Report Date: 08/10/2024 12:04 At the request of: KAILEE CESPEDES Procedure: XR foot SAMANTHA min 3V BILATERAL FEET - 3 views each CLINICAL DATA: Bilateral foot ulcers on the right at the second toe and the left at the plantar surface. COMPARISON: None AP, lateral and oblique views were obtained. There is osteopenia. 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 There is an old suspected fracture at the distal proximal phalanx of the third toe on that side. No acute fractures or dislocation are noted. There are degenerative changes bilaterally including the first toes, spurring at the dorsum of the tarsals, left greater than right and calcaneal spurs. There is deformity at the tuft of the distal phalanx of the second toe on the right. There does appear to be adjacent soft tissue swelling and an overlying ulcer. Osteomyelitis is not excluded. There is no obvious bony destruction on the left. Dorsal soft tissue swelling is noted on both sides, left worse on the right. XR/XR foot SAMANTHA min 3V IMPRESSION: OSTEOPENIA AND DEGENERATIVE CHANGES. POSTOPERATIVE AND SUSPECTED OLD POSTTRAUMATIC CHANGES ON THE LEFT. DEFORMITY AT THE DISTAL PHALANX OF THE RIGHT SECOND TOE WHERE OSTEOMYELITIS IS NOT EXCLUDED. Impression dictated by: Misa Crews M.D. 08/10/2024 12:04 PM Dictation Location: [place] [address] Electronically authenticated by: [id number] Y Date: 08/10/2024 12:04
== END 2024-08-10 08:47 | disposition home or self-care (01) ==
LOC: CARD 08:47
PROVIDERS: PCP Family Medicine; Visit Provider Physician Assistant
DX: R09.89 Other specified symptoms and signs involving the circulatory and respiratory systems (principal); M85.872 Other specified disorders of bone density and structure, left ankle and foot; M85.871 Other specified disorders of bone density and structure, right ankle and foot; Z98.890 Other specified postprocedural states
CPT/HCPCS: 73630; 93923

== ENCOUNTER 2024-08-11 13:44 | Outpatient (OUT) | payer MEDICARE, OTHER, MEDICAID, SELFPAY ==
--- OUTSIDE RECORDS SUMMARY | 2005-04-04 10:35 | XMS_ITS | Continuity of Care Document ---
Author Name [facility] Organization [facility] Care Team Providers Care Sales Representative Uniforms Name Role Phone [facility] Unavailable Unavailable Problems Combined list of problems [...] By: Jossie MARTIN Comment: severe axonal/demy elinative [facility] Peripheral Neuropathy (ICD-9-CM 355.9) Active Condition [place] [...] adverse reactions to drug (finding) active 6 [facility] GLUCOCORTICOI DS Propensity to adverse reactions to drug (finding) active 5 [facility] NEOSPORIN Propensity to adverse reactions to drug (finding) active 6 [facility] Immunizations Combined list of available immunizations from the Department of Defense and Veterans Affairs facilities. Immunization Series Date Given Administered By Site Reaction Lot Number CVX Code Drug Furnace Combustion Tester Status Comments Source PNEUMOCOCCAL, UNSPECIFIED FORMULATION 2004 109 complet ed [facility] INFLUENZA, UNSPECIFIED FORMULATION 2003 88 complet ed [facility] Social History Combined list [...]
--- OUTSIDE RECORDS SUMMARY | 2024-08-11 13:47 | XMS_ITS | Encounter Summary ---
Author Organization [email or web address] Address [address] [place] [address] Care Team Providers Care Photographic Lithographer Name Role Phone Aamir Purcell DO Primary Care Provider [phone] Adilson Hernandez MD Unavailable [phone] Kartik Mejia MD Unavailable [phone] Tisha Arriaga MD Unavailable Luis Miguel Kaur MD Unavailable [phone] Chris Zavala OD Unavailable Unavailable Encounter Details Date Type Department Care Team (Late st Contact Info) Description 11/01/2019 Telephone Infusion [facility] Outpatient Care [address] [place] [address] Nahomy Fenton, VIRGIE Social History Tobacco Use Types Packs/Day Years Used Date Smoking Tobacco: Former Cigarettes Q uit: 1996 Smokeless Tobacco: Never Alcohol Use Standard Drinks/Week Comments No 0 (1 standard drink = 0.6 oz pur e alcohol) Comments No Sex and Gender Information Value Date Recorded Sex Assigned at Not on file Legal Sex Female 3:05 PM EST Gender Identity Female 10/15/2016 6:49 AM EDT Sexual Orientation Not on file COVID-19 Exposure Response Date Recorded In the last month, have you been in contact with someone who was confirmed or suspected to have Coronavirus / COVID-19? No / Unsure 11/02/2019 9:09 AM EDT documented as of this encounter Functional Status * Are you deaf or do you have serious difficulty hearing? Answer Date of Assessment Author No 01/22/2018 3:10 PM EST Balbina Goss * Are you blind or do you have serious difficulty seeing, even when wearing glasses? Answer Date of Assessment Author No 01/22/2018 3:10 PM Balbina Chandler * Do you have serious difficulty walking or climbing stairs (5 years or older)? Answer Date of Assessment Author No 01/22/2018 3:10 PM Balbina Chandler * Do you have difficulty dressing or bathing (5 yrs or older)? Answer Date of Assessment Author No 01/22/2018 3:10 PM Balbina Chandler * Because of a physical, mental, or emotional condition, do you have difficulty doing errands alone such as visiting a doctor's office or shopping (5 yrs or older)? Answer Date of Assessment Author No 01/22/2018 3:10 PM Balbina Chandler documented as of this encounter Mental Status * Because of a physical, mental, or emotional condition, do you have serious difficulty concentrating, remembering, or making decisions (5 yrs or older)? Answer Entry Date Author No 01/22/2018 3:10 PM Balbina Chandler documented in this encounter Miscellaneous Notes * Telephone Encounter - Nahomy Fenton RN - 11/01/2019 10:22 AM EDT .Patient called to pre-screen for potential symptoms of COVID-19 prior to next day appointment. ? If YES to: Fever or 1 symptom + ANY Comorbidity, call the COVID-19 Call Center at [phone] withAttending approval ? Comorbidity: Age >60: No Immunosuppressants or biologics: Yes Cancer diagnosis: No Anti-Cancer Treatment: No Heart Disease: No Chronic Lung Disease: No End Stage Renal Disease: No Advanced HIV: No : No Symptoms: Fever: No? Loss of Taste or Smell: No Cough: No SOB: No Diarrhea: No Muscle Ache: No Headache: No Nausea/Vomiting: No Have you been exposed to anyone suspected of or tested positive for COVID-19 (if YES, reach out to the prescribing provider for direction): No Patient referred to Call Center by Attending: No Patient appointment for 11/02/19 has been postponed 3 weeks No Prescribing Physician notified of prescreen results requiring further evaluation No Patient states understanding of pre-appointment screening and advised to call first, prior to coming to any appointment if they experience any of these symptoms. documented in this encounter Plan of Treatment Not on file documented as of this encounter Visit Diagnoses Not on filedocumented in this encounter Care Teams Photographic Lithographer Relationship Specialty Start Date End Date Aamir Purcell DO PCP - General Family Medicine 03/06/17 Adilson Hernandez MD [address] [place] [address] Ophthalmology 07/18/17 Kartik Mejia MD [address] [place] [address] [place] [address] Pain Medicine 12/25/17 Tisha Arriaga MD [address] [place] [address] Neurologist Neurology 07/18/17 Luis Miguel Kaur MD [address] [place] [address] Store Stocker Endocrinology, Diabetes & Metabolism 03/06/17 Chris Zavala, OD [address] [place] [address] Optometry 03/15/20 documented as of this encounter
--- OUTSIDE RECORDS SUMMARY | 2024-08-11 13:47 | XMS_ITS | Continuity of Care Document ---
Author Organization [facility] up Address [address] [id number] Insurance Providers Payer Plan Claims Address Claims Phone Policy Number Group Number Relation Employer Guarantor Name Guarantor Guarantor Address Guarantor Phone MEDIC ARE [facility] [address] [place] [address] tel:[phone] 2011 Self Cleo Georges 1965 [address] [place] [address] [facility] [address] [address], [place] [address] tel:[phone] Self Cleo Georges 1965 [address] [place] [address] MEDIC ARE [address] [place] [address] tel:[phone] Self Cleo Georges 1965 [address] [place] [address] Problems Condition ICD9 code ICD10 code SNOMED code Start Date End Date S tatus Muscle weakness (generalized) M62.81 02/19/2024 Active Difficulty in walking, not elsewhere classified R26.2 02/19/2024 Active Results No Results Allergies, adverse reactions, alerts Substance Reaction Date Status Type No allergies have been recorded Non Drug Medications No administered medications reported Vital Signs No vital signs reported Social History No smoking Hx information available
--- OUTSIDE RECORDS SUMMARY | 2024-08-11 13:47 | XMS_ITS | Encounter Summary ---
Author Organization [facility] Address [address] [place] [address] Care Team Providers Care Public Relations Studies Director Name Role Phone Aamir Purcell DO Primary Care Provider [phone] Adilson Hernandez MD Unavailable [phone] Kartik Mejia MD Unavailable [phone] Tisha Arriaga MD Unavailable Luis Miguel Kaur MD Unavailable [phone] Chris Zavala OD Unavailable Unavailable Reason for Visit * Reason Onset Date Comments Referral 04/16/2021 Encounter Details Date Type Department Care Team (Late st Contact Info) Description 04/16/2021 Telephone Neurology Outpatient Care [place] [address] [facility] [address] [place] [address] Gerald Richardson Referral Social History Tobacco Use Types Packs/Day Years [...] Exposure Response Date Recorded In the last 10 days, have yo u been in contact with someone who was confirmed or suspected to have Coronavirus/COVID-19? No / Unsure 04/12/2021 10:22 AM EST documented as of this encounter Functional Status * Are you deaf or do you have serious difficulty hearing? Answer Date of Assessment Author No 01/22/2018 3:10 PM Balbina Chandler * Are you blind or do you [...] encounter Miscellaneous Notes * Telephone Encounter - Nurys Crow RN - 04/20/2021 12:20 PM EST Called Hematology (Lorna) to clarify pt's Mychart message. Lorna stated Hematology deemed that pt no longer needed to see Hematology and continue with Neurology per 03/16/[address] Forde. * Telephone Encounter - Arcenio Lopez - 04/19/2021 1:12 PM EST Patient is returning Nurys's phone call. States that she can be reached at [phone]. JDS * Telephone Encounter - Nurys Crow RN - 04/18/2021 10:42 AM EST Called pt, left voicemail to call the office. * Telephone Encounter - Gerald Richardson - 04/16/2021 9:04 AM EST Pt is calling to ask if Dr Mtz can place a referral for her to be seen in Hematology. # [phone] ABHINAV documented in this encounter Plan of Treatment Not on file documented as of this encounter Visit Diagnoses Not on filedocumented in this encounter Care Teams Public Relations Studies Director Relationship Specialty Start Date End Date Aamir Purcell DO PCP - General Family Medicine 03/06/17 Adilson Hernandez MD [address] [place] [address] Ophthalmology 07/18/17 Kartik Mejia MD [address] [place] [address] Pain Medicine 12/25/17 Tisha Arriaga MD [address] [place] [address] Neurologist Neurology 07/18/17 Luis Miguel Kaur MD [address] [place] [address] Professor Of History Endocrinology, Diabetes & Metabolism 03/06/17 Chris Zavala, ROGELIO [address] [place] [address] Optometry 03/15/20 documented as of this encounter
--- OUTSIDE RECORDS SUMMARY | 2024-08-11 13:47 | XMS_ITS | Encounter Summary ---
Author Organization [facility] Address [address] [place] [address] Care Team Providers Care Lead Presser Name Role Phone Aamir Purcell Primary Care Provider [phone] Hoang Gilliam DPM Unavailable [phone] SOMMER DO, W. Don Unavailable [phone] Encounter Details Date Type Department Care Team (Late st Contact Info) Description 04/02/2017 Abstract [facility] [address], 3rd [place] [address] Alaina Doan MA Social History [...] documented as of this encounter Care Teams Lead Presser Relationship Specialty Start Date End Date Aamir Purcell DO [address] [place] [address] PCP - General Family Medicine 03/28/17 Hoang Gilliam DPM [address] [place] [address] Consulting Physician Podiatry 04/07/17 05/17/21 Reji Miramontes III, DO [address] [place] [address] Consulting Physician Vascular Surgery 04/07/17 05/17/21 documented as of this encounter
--- OUTSIDE RECORDS SUMMARY | 2024-08-11 13:47 | XMS_ITS | Encounter Summary ---
Author Organization [facility] Address [address] [place] [address] Care Team Providers Care Guest Service Host Name Role Phone Aamir Purcell Primary Care Provider [phone] Hoang Gilliam DPM Unavailable [phone] SOMMER DO, W. 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 foot (HCC) Hoang Gilliam DPM [address] [place] [address] Phone: tel: fax: [facility] Phys[facility] [address] 3rd [place] [address] Phone: tel: fax: Referral ID Status Reason Start Date Expiration Date V isits Requested Visits Authorized [id number] Closed Specialty Services Required/Herminia ent's Best Interest 03/28/2017 03/28/2018 1 1 Encounter Details Date Type Department Care Team (Latest Contact Info) Description 03/28/2017 Transcribe Orders [facility] [address], 3rd [place] [address] Hoang Gilliam, MARK [address] [place] [address] PVD (peripheral vascular disease) (Primary Dx); 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); Atherosclerosis of [place] arteries of left leg with ulceration of [...] Without Evidence Of Necrosis (Hcc) Atherosclerosis of [place] arteries of left leg with ulceration of other part of foot (HCC) 1 Occurrences starting 03/28/2017 until 03/28/2018 documented as of this encounter Visit Diagnoses Diagnosis PVD (peripheral vascular disease)- Primary Unspecified peripheral vascular disease 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 of [place] arteries of left leg with ulceration of other part of foot (HCC) documented in this encounter Additional Health Concerns Infection Onset Date Last Indicated Resolved Time COVID-19 Suspected 05/18/2021 05/18/2021 2 7:53 PM EDT COVID-19 Suspected 05/29/2021 05/29/2021 2 12:26 PM EDT documented as of this encounter Care Teams Guest Service Host Relationship Specialty Start Date End Date Aamir Purcell DO [address] [place] [address] PCP - General Family Medicine 03/28/17 Hoang Gilliam DPM [address] [place] [address] Consulting Physician Podiatry 04/07/17 05/17/21 Reji Miramontes III, DO [address] [place] [address] Consulting Physician Vascular Surgery 04/07/17 05/17/21 documented as of this encounter
--- OUTSIDE RECORDS SUMMARY | 2024-08-11 13:47 | XMS_ITS | Encounter Summary ---
Author Organization [facility] Address [address] [place] [address] Care Team Providers Care Soil Science Professor Name Role Phone Aamir Purcell DO Primary Care Provider [phone] Adislon Hernandez MD Unavailable [phone] Kartik Mejia MD Unavailable [phone] Tisha Arriaga MD Unavailable Luis Miguel Kaur MD Unavailable [phone] Chris Zavala OD Unavailable Unavailable Encounter Details Date Type Department Care Team (Late st Contact Info) Description 10/11/2019 Telephone Infusion [facility] Outpatient Care [address] [place] [address] Nahomy Fenton, VIRGIE Social History [...] have Coronavirus / COVID-19? No / Unsure 10/14/2019 9:07 AM EDT documented as of this encounter [...] Telephone Encounter - Nahomy Fenton RN - 10/11/2019 9:54 AM EDT ..Patient called to pre-screen for potential symptoms of COVID-19 prior to next day appointment. ? If YES to: Fever or 1 symptom + ANY Comorbidity, call the COVID-19 Call Center at [phone] withAttending approval ? Comorbidity: Age >60: No [...] Center by Attending: No Patient appointment for 10/13/19 has been postponed 3 weeks No Prescribing [...] on filedocumented in this encounter Care Teams Soil Science Professor Relationship Specialty Start Date End Date Aamir Purcell DO PCP - General Family Medicine 03/06/17 Adilson Hernandez MD [address] [place] [address] Ophthalmology 07/18/17 Kartik Mejia MD [address] [place] [address] [place] [address] Pain Medicine 12/25/17 Tisha Arriaga MD [address] [place] [address] Neurologist Neurology 07/18/17 Luis Miguel Kaur MD [address] [place] [address] Industrial Arts Teacher Endocrinology, Diabetes & Metabolism 03/06/17 Chris Zavala, OD [address] [place] [address] Optometry 03/15/20 documented as of this encounter
--- OUTSIDE RECORDS SUMMARY | 2024-08-11 13:47 | XMS_ITS | Clinical Summary ---
Author Organization [facility] Address [address] [place], [place] [id number] Care Team Providers Care Ultrasound Specialist Name Role Phone Basilia Tobias Lars PALACIOS [...] - 5.6 % 03/23/2015 10:11 PM EST [facility] Comment: [place] Diabetes Association guidelines indicate that patients with HgbA1c in the range 5.7-6.4% are at increased risk for development of diabetes, and intervention by lifestyle modification may be beneficial. HgbA1c greater or equal to 6.5% is considered diagnostic of diabetes. Estimated Average Glucose >240 mg/dL 03/23/2015 10:11 PM EST [facility] Comment: eAG: (Estimated average glucose) is a calculated value from HgbA1c and is in store representative of the average blood glucose level in the last 2-3 month period. Blood specimen (specimen) WHOLE BLOOD SPECIMEN / Unknown 03/23/2015 2:21 PM EST 03/23/2015 2:26 PM EST [facility] Final Result [facility] [address] [place] [address] from Last 3 Months or Most Recently Relevant to Health Maintenance Insurance MEDICARE Care Teams Ultrasound Specialist Relationship Specialty Start Date End Date Tobias Cui DO PCP - General Family Medicine 02/13/15
--- OUTSIDE RECORDS SUMMARY | 2024-08-11 13:47 | XMS_ITS | Encounter Summary ---
Author Organization [facility] Address [address] [place] [address] Care Team Providers Care Director Pharmaceutical Name Role Phone Aamir Purcell DO Primary Care Provider [phone] Adilson Hernandez MD Unavailable [phone] Kartik Mejia MD Unavailable [phone] Tisha Arriaga MD Unavailable Luis Miguel Kaur MD Unavailable [phone] Chris Zavala OD Unavailable Unavailable Reason for Visit * Reason Onset Date Comments Reschedule 11/29/2020 Encounter Details Date Type Department Care Team (Late st Contact Info) Description 11/29/2020 Telephone Central Scheduling [address] [place] [address] Jeremy Hernandez MD [address] [facility] [address] [place] [address] Reschedule Social History Tobacco Use Types Packs/Day Years [...] have Coronavirus / COVID-19? No / Unsure 11/14/2020 9:48 AM EDT documented as of this encounter [...] encounter Miscellaneous Notes * Telephone Encounter - Beatrice Veliz - 12/04/2020 8:40 AM EDT Pt calling again-is she to keep appt already scheduled or does she need on sooner * Telephone Encounter - Elzbieta Seaman - 11/29/2020 10:34 AM EDT Pt called and needed to cancel her appointment for her injection as she was not feeling well. Please call her back to reschedule. Thanks documented in this encounter Plan of Treatment Not on file documented as of this encounter Visit Diagnoses Not on filedocumented in this encounter Care Teams Director Pharmaceutical Relationship Specialty Start Date End Date Aamir Purcell DO PCP - General Family Medicine 03/06/17 Adilson Hernandez MD [address] [place] [address] Ophthalmology 07/18/17 Kartik Mejia MD [address] [place] [address] [place] [address] Pain Medicine 12/25/17 Tisha Arriaga MD [address] [place] [address] Neurologist Neurology 07/18/17 Luis Miguel aKur MD [address] [place] [address] Group Care Worker Endocrinology, Diabetes & Metabolism 03/06/17 Chris Zavala, OD [address] [place] [address] Optometry 03/15/20 documented as of this encounter
--- OUTSIDE RECORDS SUMMARY | 2024-08-11 13:48 | XMS_ITS | Encounter Summary ---
Author Organization [facility] Address [address] [place] [address] Care Team Providers Care Pantry Goods Maker Name Role Phone Aamir Purcell MD Primary Care Provider [phone] Encounter Details Date Type Department Care Team (Late Contact Info) Description 11/25/2022 Orders Only [facility] [address] [place] [address] A, Unknown Practice [address] [place], [place] [address] Social History Tobacco Use Types Packs/Day Years Used Date Smoking Tobacco: Never Assessed Comments Unknown Sex and Gender Information Value Date Recorded Sex Assigned at Not on file Legal Sex Female 6:48 PM EDT Gender Identity Not on file Sexual Orientation Not on file documented as of this encounter Plan of Treatment Upcoming Encounters Date Type Department Care Team ([facility] Contact Info) Description 08/17/2024 10:50 AM EDT Office Visit [facility] [address] [place] [address] Nadia Quiñones, SATELLITE PROJECT SITE MONITOR-TREE TAPPING LABORER [address] [facility] [address] [place] [address] 09/27/2024 1:15 PM EDT Office Visit [facility] [address] [place] [address] Adilson Johnson, [address] [place] [address] documented as of this encounter Procedures Procedure Name Priority Date/Time Associated Diagnosis Comments SCANNED LABS Routine 11/23/2022 9:24 AM EDT documented in this encounter Results * SCANNED LABS (11/23/2022 9:24 AM EDT) us Unknown Practice A LAB CHG PERFORMABLES Final Re sult documented in this encounter Visit Diagnoses Not on filedocumented in this encounter Care Teams Pantry Goods Maker Relationship Specialty Start Date End Date Aamir Purcell MD [address] [place] [address] PCP - General Family Medicine 08/12/22 documented as of this encounter
--- OUTSIDE RECORDS SUMMARY | 2024-08-11 13:48 | XMS_ITS | Encounter Summary ---
Author Organization [facility] Address [address] [place] [address] Care Team Providers Care Superintendent Drilling Name Role Phone Aamir Purcell MD Primary Care Provider [phone] Encounter Details Date Type Department Care Team (Late Contact Info) Description 05/10/2024 Abstract [facility] [address] [facility] [address] [place] [address] Unallocated, Noms Provider, [address] [place] [address] Social History Tobacco Use Types Packs/Day Years Used Date Smoking Tobacco: Never Assessed Comments Unknown Sex and Gender Information Value Date Recorded Sex Assigned at Not on file Legal Sex Female 6:48 PM EDT Gender Identity Not on file Sexual Orientation Not on file documented as of this encounter Plan of Treatment Upcoming Encounters Date Type Department Care Team ([facility] Contact Info) Description 08/17/2024 10:50 AM EDT Office Visit [facility] [address] [facility] [address] [place] [address] Nadia Quiñones, ASSOCIATE ART DIRECTOR-INTERFACE ENGINEER [address] [facility] [address] [place] [address] 09/27/2024 1:15 PM EDT Office Visit [facility] [address] [place] [phone] Adilson Johnson, DO [address] [place] [address] documented as of this encounter Visit Diagnoses Not on filedocumented in this encounter Care Teams Superintendent Drilling Relationship Specialty Start Date End Date Aamir Purcell MD [address] [place] [address] PCP - General Family Medicine 08/12/22 documented as of this encounter
--- OUTSIDE RECORDS SUMMARY | 2024-08-11 13:48 | XMS_ITS | Encounter Summary ---
Author Organization [facility] Address [address] [place] [address] Care Team Providers Care Mechanical Unit Repairer Name Role Phone Aamir Purcell DO Primary Care Provider [phone] Adilson Hernandez MD Unavailable [phone] Kartik Mejia MD Unavailable [phone] Tisha Arriaga MD Unavailable Luis Miguel Kaur MD Unavailable [phone] Chris Zavala OD Unavailable Unavailable Reason for Visit * Reason Onset Date Comments Infusion Visit 06/15/2019 Encounter Details Date Type Department Care Team (Late st Contact Info) Description 06/15/2019 Telephone Neurology [facility] [address] [place] [address] Mai Robles Infusion Visit Social History Tobacco Use Types Packs/Day Years [...] or suspected to have Coronavirus / COVID-19? Unable to assess 06/18/2019 9:46 AM EDT documented as of this encounter [...] encounter Miscellaneous Notes * Telephone Encounter - Aylin Loera - 06/17/2019 11:55 AM EDT Called and left message with my callback # to schedule for infusion. We are still doing infusions as planned, with the extra PPE protocols & pt can be scheduled as soon as she feels comfortable coming to infusion center. * Telephone Encounter - Mai Robles - 06/15/2019 3:50 PM EDT Pt calling to follow up on when she will be able to schedule infusion visits MM documented in this encounter Plan of Treatment Not on file documented as of this encounter Visit Diagnoses Not on filedocumented in this encounter Care Teams Mechanical Unit Repairer Relationship Specialty Start Date End Date Binh AamirDO PCP - General Family Medicine 03/06/17 Adilson Hernandez MD [address] [place] [address] Ophthalmology 07/18/17 Kartik Mejia MD [address] [place] [address] [place] [address] Pain Medicine 12/25/17 Tisha Arriaga MD [address] [place] [phone] Neurologist Neurology 07/18/17 Luis Miguel Kaur MD [address] [place] [address] Practice Performance Manager Endocrinology, Diabetes & Metabolism 03/06/17 Chris Zavala, OD [address] [place] [address] Optometry 03/15/20 documented as of this encounter
--- OUTSIDE RECORDS SUMMARY | 2024-08-11 13:48 | XMS_ITS | Encounter Summary ---
Author Organization [facility] Address [address] [place] [address] Care Team Providers Care Vp Global Name Role Phone Aamir Purcell MD Primary Care Provider [phone] Encounter Details Date Type Department Care Team (Late Contact Info) Description 06/08/2024 Abstract [facility] [address] [facility] [address] [place] [address] Unallocated, Noms Provider, [address] [place] [address] Social History Tobacco Use Types Packs/Day Years Used Date Smoking Tobacco: Never Assessed Comments Unknown Sex and Gender Information Value Date Recorded Sex Assigned at Not on file Legal Sex Female 6:48 PM EDT Gender Identity Not on file Sexual Orientation Not on file documented as of this encounter Plan of Treatment Upcoming Encounters Date Type Department Care Team ([facility] Contact Info) Description 08/17/2024 10:50 AM EDT Office Visit [facility] [address] [facility] [address] [place] [address] Nadia Quiñones, FIELD SPECIALIST-PAPERHANGER APPRENTICE [address] [facility] [address] [place] [address] 09/27/2024 1:15 PM EDT Office Visit [facility] [address] [place] [phone] Adilson Johnson, DO [address] [place] [address] documented as of this encounter Visit Diagnoses Not on filedocumented in this encounter Care Teams Vp Global Relationship Specialty Start Date End Date Aamir Purcell MD [address] [place] [address] PCP - General Family Medicine 08/12/22 documented as of this encounter
--- OUTSIDE RECORDS SUMMARY | 2024-08-11 13:48 | XMS_ITS | Encounter Summary ---
Author Organization [facility] Address [address] [place] [address] Care Team Providers Care Student Admissions Clerk Name Role Phone Aamir Purcell MD Primary Care Provider [phone] Encounter Details Date Type Department Care Team (Late Contact Info) Description 08/10/2024 Clinisync Result Encounter [facility] External Department Unsolicited Provider, Generic External Data Social History Tobacco Use Types Packs/Day Years Used Date Smoking Tobacco: Never Assessed Comments Unknown Sex and Gender Information Value Date Recorded Sex Assigned at Not on file Legal Sex Female 6:48 PM EDT Gender Identity Not on file Sexual Orientation Not on file documented as of this encounter Plan of Treatment Upcoming Encounters Date Type Department Care Team ([facility] Contact Info) Description 08/17/2024 10:50 AM EDT Office Visit [facility] [address] [facility] [address] [place] [phone] Nadia Quiñones, MARKETING REGIONAL CONSULTANT-PIPELINE INSPECTOR [address] [facility] [address] [place] [address] 09/27/2024 1:15 PM EDT Office Visit [facility] [address] [place] [address] Adilson Johnson, [address] [place] [address] documented as of this encounter Procedures Procedure Name Priority Date/Time Associated Diagnosis Comments XR FOOT SAMANTHA MIN 3 VIEWS 08/10/2024 12:04 PM EDT documented in this encounter Results * XR FOOT SAMANTHA MIN 3 VIEWS (08/10/2024 12:04 PM EDT) Anatomical Region Laterality Modality Other 08/10/2024 12:0 4 PM EDT Narrative 08/10/2024 12:07 PM EDT [address] [address] XRay Report Signed Patient: CLEO FERNANDEZ MR#: [id number] : 1965 Acct:[id number] Age/Sex: 59 / F ADM Date: 08/10/24 Loc: CARD Attending Dr: Kailee CESPEDES Ordering Physician: Kailee Lopez Date of Service: 08/10/24 Procedure(s): XR foot SAMANTHA min 3V Accession Number(s): [id number] cc: MAHIN BERNAL ; Kailee Lopez [place] [address] Patient Name: CLEO FERNANDEZ MRN: [id number] date: 1965 Sex: F Assigned Patient Location: CARD Current Patient Location: CARD Accession/Order Number: [id number] Exam Date: 08/10/2024 11:59 Report Date: 08/10/2024 12:04 At the request of: KAILEE CESPEDES Procedure: XR foot SAMANTHA min 3V BILATERAL FEET - 3 views each CLINICAL DATA: Bilateral foot ulcers on the right at the second toe and the left at the plantar surface. COMPARISON: None AP, lateral and oblique views were obtained. There is osteopenia. 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 There is an old suspected fracture at the distal proximal phalanx of the third toe on that side. No acute fractures or dislocation are noted. There are degenerative changes bilaterally including the first toes, spurring at the dorsum of the tarsals, left greater than right and calcaneal spurs. There is deformity at the tuft of the distal phalanx of the second toe on the right. There does appear to be adjacent soft tissue swelling and an overlying ulcer. Osteomyelitis is not excluded. There is no obvious bony destruction on the left. Dorsal soft tissue swelling is noted on both sides, left worse on the right. XR/XR foot SAMANTHA min 3V IMPRESSION: OSTEOPENIA AND DEGENERATIVE CHANGES. POSTOPERATIVE AND SUSPECTED OLD POSTTRAUMATIC CHANGES ON THE LEFT. DEFORMITY AT THE DISTAL PHALANX OF THE RIGHT SECOND TOE WHERE OSTEOMYELITIS IS NOT EXCLUDED. Impression dictated by: Misa Crews M.D. 08/10/2024 12:04 PM Dictation Location: [place] [address] Electronically authenticated by: [id number] Y Date: 08/10/2024 12:04 Dictated By: Misa Crews M.D. Signed By: 08/10/24 1207 DD/ 1204 TD/TT: Heavy Media Operator: Procedure Note Radiology, Radiologist, MD - 08/10/2024 [place] [address] XRay Report Signed Patient: CLEO FERNANDEZ LMR#: [id number] : 1965Acct:[id number] Age/Sex: 59 / FADM Date: 08/10/24 Loc: CARD Attending Dr: Kailee CESPEDES Ordering Physician: Kailee Lopez Date of Service: 08/10/24 Procedure(s): XR foot SAMANTHA min 3V Accession Number(s): [id number] cc: MAHIN BERNAL ; Kailee Lopez [place] [address] Patient Name: CLEO FERNANDEZ MRN: [id number] date: 1965 Sex: F Assigned Patient Location: CARD Current Patient Location: CARD Accession/Order Number: [id number] Exam Date: 08/10/2024 11:59 Report Date: 08/10/2024 12:04 At the request of: KAILEE CESPEDES Procedure: XR foot SAMANTHA min 3V BILATERAL FEET - 3 views each CLINICAL DATA: Bilateral foot ulcers on the right at the second toe andthe left at the plantar surface. COMPARISON: None AP, lateral and oblique views were obtained. There is osteopenia. Thereis prior amputation of the left second toe at the metatarsal phalangealjoint. There is an old suspected fracture at the distal proximal phalanx of thethird toe on that side. No acute fractures or dislocation are noted. There are degenerative changes bilaterally including the first toes, spurring at the dorsum of the tarsals, left greater than right and calcaneal spurs. Thereis deformity at the tuft of the distal phalanx of the second toe on theright. There does appear to be adjacent soft tissue swelling and an overlyingulcer. Osteomyelitis is not excluded. There is no obvious bony destruction onthe left. Dorsal soft tissue swelling is noted on both sides, left worse onthe right. XR/XR foot SAMANTHA min 3V IMPRESSION: OSTEOPENIA AND DEGENERATIVE CHANGES. POSTOPERATIVE AND SUSPECTED OLD POSTTRAUMATIC CHANGES ON THE LEFT. DEFORMITY AT THE DISTAL PHALANX OF THE RIGHT SECOND TOE WHEREOSTEOMYELITIS IS NOT EXCLUDED. Impression dictated by: Misa Crews M.D. 08/10/2024 12:04 PM Dictation Location: [place] [address] Electronically authenticated by: [id number] Y Date: 2:04 Dictated By: Misa Crews M.D. Signed By:08/10/24 1207 DD/ 1204 TD/TT: Heavy Media Operator: Generic External Data Provider [facility] Final Result documented in this encounter Visit Diagnoses Not on filedocumented in this encounter Care Teams Student Admissions Clerk Relationship Specialty Start Date End Date Aamir Purcell MD [address] [place] [address] PCP - General Family Medicine 08/12/22 documented as of this encounter
--- OUTSIDE RECORDS SUMMARY | 2024-08-11 13:48 | XMS_ITS | Encounter Summary ---
Author Organization [facility] Address [address] [place] [address] Care Team Providers Care Client Server Developer Name Role Phone Aamir Purcell MD Primary Care Provider [phone] Encounter Details Date Type Department Care Team (Late Contact Info) Description 03/11/2024 Abstract [facility] FM [address] [facility] [address] [place] [address] Unallocated, Noms Provider, [address] [place] [address] Social History Tobacco Use Types Packs/Day Years Used Date Smoking Tobacco: Never Assessed Comments Unknown Sex and Gender Information Value Date Recorded Sex Assigned at Not on file Legal Sex Female 6:48 PM EDT Gender Identity Not on file Sexual Orientation Not on file documented as of this encounter Plan of Treatment Upcoming Encounters Date Type Department Care Team ([facility] Contact Info) Description 08/17/2024 10:50 AM EDT Office Visit [facility] [address] [facility] [address] [place] [phone] Nadia Quiñones, TRUCK TRAILER MECHANIC-RAISED PRINTER [address] [facility] [address] [place] [address] 09/27/2024 1:15 PM EDT Office Visit [facility] [address] [place] [phone] Adilson Johnson, DO [address] [place] [address] documented as of this encounter Visit Diagnoses Not on filedocumented in this encounter Care Teams Client Server Developer Relationship Specialty Start Date End Date Aamir Purcell MD [address] [place] [address] PCP - General Family Medicine 08/12/22 documented as of this encounter
--- OUTSIDE RECORDS SUMMARY | 2024-08-11 13:48 | XMS_ITS | Encounter Summary ---
Author Organization [facility] Address [address] [place] [address] Care Team Providers Care Field Hand Name Role Phone Aamir Purcell MD Primary Care Provider [phone] Encounter Details Date Type Department Care Team (Late Contact Info) Description 04/19/2024 Abstract [facility] [address] [facility] [address] [place] [address] Unallocated, Noms Provider, [address] [place] [address] Social History Tobacco Use Types Packs/Day Years Used Date Smoking Tobacco: Never Assessed Comments Unknown Sex and Gender Information Value Date Recorded Sex Assigned at Not on file Legal Sex Female 6:48 PM EDT Gender Identity Not on file Sexual Orientation Not on file documented as of this encounter Plan of Treatment Upcoming Encounters Date Type Department Care Team ([facility] Contact Info) Description 08/17/2024 10:50 AM EDT Office Visit [facility] [address] [facility] [address] [place] [address] Nadia Quiñones, EDUCATION PROGRAM ASSOCIATE-ROBOT PROGRAMMER [address] [facility] [address] [place] [address] 09/27/2024 1:15 PM EDT Office Visit [facility] [address] [place] [phone] Adilson Johnson, DO [address] [place] [address] documented as of this encounter Visit Diagnoses Not on filedocumented in this encounter Care Teams Field Hand Relationship Specialty Start Date End Date Aamir Purcell MD [address] [place] [address] PCP - General Family Medicine 08/12/22 documented as of this encounter
--- OUTSIDE RECORDS SUMMARY | 2024-08-11 13:48 | XMS_ITS | Encounter Summary ---
Author Organization [facility] Address [address] [place] [address] Care Team Providers Care Hair Spinning Machine Operator Name Role Phone Aamir Purcell MD Primary Care Provider [phone] Encounter Details Date Type Department Care Team (Late Contact Info) Description 06/28/2024 Abstract [facility] FM [address] [facility] [address] [place] [address] Unallocated, Noms Provider, [address] [place] [address] Social History Tobacco Use Types Packs/Day Years Used Date Smoking Tobacco: Never Assessed Comments Unknown Sex and Gender Information Value Date Recorded Sex Assigned at Not on file Legal Sex Female 6:48 PM EDT Gender Identity Not on file Sexual Orientation Not on file documented as of this encounter Plan of Treatment Upcoming Encounters Date Type Department Care Team ([facility] Contact Info) Description 08/17/2024 10:50 AM EDT Office Visit [facility] DER[facility] [address] [facility] [address] [place] [address] Nadia Quiñones, RECEIVING SUPERVISOR-SENIOR COMMISSARY AGENT [address] [facility] [address] [place] [address] 09/27/2024 1:15 PM EDT Office Visit [facility] [address] [place] [address] Adilson Johnson, DO [address] [place] [address] documented as of this encounter Visit Diagnoses Not on filedocumented in this encounter Care Teams Hair Spinning Machine Operator Relationship Specialty Start Date End Date Aamir Purcell MD [address] [place] [address] PCP - General Family Medicine 08/12/22 documented as of this encounter
--- OUTSIDE RECORDS SUMMARY | 2024-08-11 13:48 | XMS_ITS | Clinical Summary ---
Author Organization [facility] Address [address] [place] [address] Care Team Providers Care Reexaminer Name Role Phone Migue Cole MD Primary Care Provider [phone] Allergies Active Allergy Reactions Criticality Noted Date Comments Moxifloxacin Hydrochloride Rash Low 12/02/2011 Cephalexin Rash Low 12/02/2011 Moxifloxacin Rash High 10/28/2016 Peg 2306-Slx-Ekuyu-Nacl-Nasu lf High 10/28/2016 Tapentadol Other (See Comments) [...] this topic Medical Devices Implanted Type Area Personnel Recruiter Device Identifier Shelf Expiration Date Model / Serial / Lot System Spnl Seal 3ml Exact Duraseal - [id number] Implanted:Qty: 1 on 07/06/2021 by Ban Cevallos DO at [facility] N/A: Spine Cervical INTEGRA eth[employer]CIENCES BRETT-WD 09/27/2022 [id number] / / Kit Bne Grft Xsm 1.4cc Rhbmp-2 Absrb Cllgn Spng Infuse - [id number] Implanted:Qty: 1 on 09/25/2021 by Ban Cevallos DO at [facility] N/A: Spine Cervical MED[employer] SPINALGRAFT TECH-WD 02/16/2023 [id number] / [id number] / [id number] Graft Cellr Bne Matrx Influx Sparc 5cc - [id number] Implanted:Qty: 1 on 09/25/2021 by Ban Cevallos DO at [facility] N/A: Spine Cervical [employer]-WD 05/04/2023 [id number] / [id number] / [id number] Graft Cellr Bne Matrx Influx [facility] 5c - [id number] Implanted:Qty: 1 on 09/25/2021 by Ban Cevallos DO at [facility] N/A: Spine Cervical [employer]-WD 05/04/2023 [id number] / [id number] / [id number] Screw Spnl L34mm [id number] Occipitocervical Up Thor Multiaxial - [id number] Implanted:Qty: 2 on 09/25/2021 by Ban Cevallos DO at [facility] N/A: Spine Cervical [employer] SOFAMOR DANEK-WD [id number] / / Bishnu Spnl L25mm Dia3.5mm Occipitocervical Up Thor Precut - [id number] Implanted:Qty: 2 on 09/25/2021 by Ban Cevallos DO at [facility] N/A: Spine Cervical [employer] SOFAMOR DANEK-WD [id number] / / Set Screw Spinal M6 - [id number] Implanted:Qty: 4 on 09/25/2021 by Ban Cevallos DO at [facility] N/A: Spine Cervical [employer] SOFAMOR DANEK-WD [id number] / / Procedures Procedure Name Priority Date/Time [...] >60 >60 mL/min 09/27/2021 2:38 AM EDT [facility] GFR Comment 09/27/2021 2:38 AM EDT [facility] Comment: Average GFR for 50-59 years old: 93 mL/min/1.73sq m Chronic Kidney Disease: <60 mL/min/1.73sq m Kidney failure: <15 mL/min/1.73sq m eGFR calculated using average adult body mass. Additional eGFR calculator available at: http://www.Enclarity.com/multiple_crcl_2012.htm BLOOD SPECIMEN / Unknown 09/27/2021 2:38 AM EDT 09/27/2021 2:42 AM EDT us Darleen Carmona MD CHEMISTRY ORDERABLES Edited Resu lt - Final Performing Organization Address [facility] Co de Phone Number [facility] [address] [place] [address] * Hemoglobin A1C (09/09/2021 7:34 AM EDT) Hemoglobin A1C 5.1 4.0 - 6.0 % 09/09/2021 7:34 AM EDT [facility] Estimated Avg Glucose 100 mg/dL 09/09/2021 7:34 AM EDT [facility] Comment: The ADA and AACC recommend providing the estimated average glucose result to permit better patient understanding of their HBA1c result. 09/09/2021 7:34 AM EDT 09/09/2021 8:11 AM EDT Chris Lassiter MD CHEMISTRY ORDERABLES Final Resul t Performing Organization Address [facility] Co de Phone Number [facility] [address] [place] [address] * (ABNORMAL) OCCULT BLOOD SCREEN (07/24/2021 2:30 PM EDT) Pathologist [facility] Occult Blood, Stool #1 POSITIVE( A) NEGATIVE 07/24/2021 2:30 PM EDT [facility] Date, Stool #1 [id number] 07/24/2021 2:30 PM EDT [facility] Time, Stool #1 143 07/24/2021 2:30 PM EDT [facility] STOOL SPECIMEN / Unknown 07/24/2021 2:30 PM EDT 07/25/2021 12:13 AM EDT Xin Grove MD BODY FLUIDS AND STOOLS ORDERABLE S Final Result Performing Organization Address [facility] Co de Phone Number [facility] [address] [place] [address] * LIPID PANEL (06/28/2021 9:38 PM EDT) Pathologist [facility] Cholesterol 155 <200 mg/dL 06/28/2021 9:38 PM EDT [facility] Comment: Cholesterol Guidelines: <200 Desirable 200-240 Borderline >240 Undesirable HDL 71 >40 mg/dL 06/28/2021 9:38 PM EDT [facility] Comment: HDL Guidelines: <40 Undesirable 40-59 Borderline >59 Desirable LDL Cholesterol 63 0 - 130 mg/dL 06/28/2021 9:38 PM EDT [facility] Comment: LDL Guidelines: <100 Desirable 100-129 Near to/above Desirable 130-159 Borderline >159 Undesirable Direct (measured) LDL and calculated LDL are not interchangeable tests. Chol/HDL Ratio 2.2 <5 06/28/2021 9:38 PM EDT [facility] Comment: Triglycerides 105 <150 mg/dL 06/28/2021 9:38 PM EDT [facility] Comment: Triglyceride Guidelines: <150 Desirable 150-199 Borderline 200-499 High >499 Very high Based on AHA Guidelines for fasting triglyceride, November 2011. BLOOD SPECIMEN / Unknown 06/28/2021 9:38 PM EDT 06/28/2021 9:38 PM EDT Jenifer Jewell MD CHEMISTRY ORDERABLES Final Result [facility] [address] [phone] * Microalbumin, Ur (06/25/2013 7:05 AM EDT) Albumin Urine 12 <21 mg/L 06/25/2013 9:11 PM EDT [facility] Creatinine, Ur 166.1 39.0 - 259.0 mg/dL 06/25/2013 9:11 PM EDT [facility] Comment: The reference range and other method performance specifications have not been established for this body fluid. The test result must be integrated into the clinical context for interpretation. Microalb/Economics Lecturer. Ratio 7 mcg/mg creat 06/25/2013 9:11 PM EDT [facility] Urine Microalbumin Interp 06/25/2013 9:11 PM EDT [facility] Comment: REFERENCE RANGE NORMAL = 0 - 13 mcg/mg creat BORDERLINE = 14 - 30 mcg/mg creat ABNORMAL = >30 mcg/mg creat Performed at [facility] [address] [place] [address] 06/25/2013 7:05 AM EDT 06/25/2013 7:06 AM EDT us Tobias Cui MD URINE ORDERABLES Edited Resu lt - Final [facility] [address] [place] [address], [facility] [phone] [facility] from Last 3 Months or Most Recently Relevant to Health Maintenance Insurance MEDICARE [facility] [place]ICAID [place] MEDICARE MEDICARE Advance Directives Documents on File Type Date Recorded Patient Distribution Transformer Assembler Expl anation ACP-Advance Directive 08/13/2021 4:27 PM [...] Supplemental (Ot her) Decision Maker Care Teams Reexaminer Relationship Specialty Start Date End Date Migue Cole MD [address] [place] [facility] [place] [address] PCP - General Internal Medicine 08/14/21
--- OUTSIDE RECORDS SUMMARY | 2024-08-11 13:48 | XMS_ITS | Clinical Summary ---
Author Organization [facility] Healthcare Address [address] [place] [address] Care Team Providers Care Account Director Name Role Phone Binh, Aamir Parker MD Primary Care Provider [phone] Allergies Active Allergy Reactions Criticality Noted Date Comments Cephalexin Hives,Itching,Unknow n,Rash,Swelling High 12/02/2011 burning Moxifloxacin Itching,Unknown,Rash ,Swelling High 12/02/2011 Abdominal pain Peg 4571-Piz-Lqcqu-Nacl-Mello ulf High 10/28/2016 Tapentadol Unknown High 02/04/2014 [...] at the same time Active HYDROcodone-felicita taminophen ([place]) 5-325 MG tablet Take 1 tablet by [...] Encounters Date Type Department Care Team Description 08/10/2024 Clinisync Result Encounter [facility]OMS External Department Unsolicited Provider, Generic External Data 08/10/2024 Clinisync Result Encounter NOMS External Department Unsolicited Provider, Generic External Data 08/09/2024 Abstract [facility] CI FM [address] [facility] [address] [place] [address] Unallocated, Noms MD Garrick 06/28/2024 2:15 PM EDT Consult [facility] OPHT [address] [place] [address] Adilson Johnson, Primary open angle glaucoma (POAG) of both eyes, moderate stage (Primary Dx); 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 mellitus (HCC); Left posterior capsular opacification; Dry eyes 06/28/2024 Travel 06/28/2024 Abstract [facility] [address] [facility] 110 [place] [id number] UnalbryancatedKatja MD 06/08/2024 Abstract [facility] [address] [facility] [address] [place] [phone] Unallocated, Katja Mccauley MD from Last 3 Months Social History Tobacco [...] Description 08/17/2024 10:50 AM EDT Office Visit [facility] [address] [place] [address] Nadia Quiñones, RAC SPECIALIST-MANAGER OF SCHOOL [address] [place] [address] 09/27/2024 1:15 PM EDT Office Visit [facility] NB OP[facility] [address] [place] [address] Adilson Johnson DO [address] [place] [address] Procedures Procedure Name Priority Date/Time Associated Diagnosis Comments SEGMENTAL BLOOD PRESSURE 08/10/2024 3:48 PM EDT XR FOOT SAMANTHA MIN 3 VIEWS 08/10/2024 12:04 PM EDT OCT, OPTIC NERVE - OU - BOTH EYES Routine 06/28/2024 2:15 PM EDT Primary open angle glaucoma (POAG) of both eyes, moderate stage from Last 3 Months Results * SEGMENTAL BLOOD PRESSURE (08/10/2024 3:48 PM EDT) Anatomical Region Laterality Modality Radiographic Kathie ging 08/10/2024 3:48 PM EDT Narrative 08/10/2024 10:07 [place] [address] Cardiology Report Signed Patient: CLEO GEORGES MR#: [id number] : 1965 Acct:[id number] Age/Sex: 59 / F ADM Date: 08/10/24 Loc: CARD Attending Dr: Kailee CESPEDES Ordering Physician: Kailee Lopez Date of Service: 08/10/24 Procedure(s): CA segmental UE or LE SAMANTHA Accession Number(s): [id number] cc: MAHIN BERNAL ; Kailee Lopez [facility] Test Date: 2024-08-10 Pat Name: CLEO GEORGES Department: Room: - Gender: Female Explosive Expert: : 1965 Requested By: Kailee Lopez Order Number: [id number] Reading MD: FELIPA ALANIS M.D. Interpretive Statements Summary of the findings: Right leg: NICK= 1.19; TBI= 0.85. Doppler waveforms demonstrate biphasic flow at the posterior tibial and dorsalis pedis arteries. Left leg: NICK= 1.14; TBI= 0.83. Doppler waveforms demonstrate biphasic flow at the posterior tibial and dorsalis pedis arteries. Segmental pressures: Segmental pressures suggest bilateral femoropopliteal disease. Pulse volume recordings: PVRs at the high thigh, below knee, and ankle levels show grossly normal waveforms. Conclusion: Right and left ankle-brachial indices are suggestive of normal overall arterial flow at rest. Toe-brachial indices are not suggestive of PAD. Segmental pressures show possible bilateral femoropopliteal disease. Pulse volume recordings indicate good overall resting arterial flow. 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 Electronically Signed On 08-10-2024 22:07:46 EDT by FELIPA ALANIS M.D. Dictated By: FELIPA ALANIS Signed By: 08/10/24220608/10/242206 DD/ 1548 TD/TT: Die Cast Die Maker: Procedure Note Radiology, Radiologist, MD - 08/10/2024 [place] [address] Cardiology Report Signed Patient: CLEO GEORGES LMR#: [id number] : 1965Acct:[id number] Age/Sex: 59 / FADM Date: 08/10/24 Loc: CARD Attending Dr: Kailee CESPEDES Ordering Physician: Kailee Lopez Date of Service: 08/10/24 Procedure(s): CA segmental UE or LE SAMANTHA Accession Number(s): [id number] cc: MAHIN BERNAL ; Kailee Lopez [facility] Test Date: 2024-08-10 Pat Name: CLEO GEORGES Department: Room: - Gender: Female Explosive Expert: : 1965 Requested By: Kailee Lopez Order Number: [id number] Reading MD: FELIPA ALANIS M.D. Interpretive Statements Summary of the findings: Right leg: NICK= 1.19; TBI= 0.85. Doppler waveforms demonstrate biphasicflow at the posterior tibial and dorsalis pedis arteries. Left leg: NICK= 1.14; TBI= 0.83. Doppler waveforms demonstrate biphasicflow at the posterior tibial and dorsalis pedis arteries. Segmental pressures: Segmental pressures suggest bilateral femoropopliteal disease. Pulse volume recordings: PVRs at the high thigh, below knee, and anklelevels show grossly normal waveforms. Conclusion: Right and left ankle-brachial indices are suggestive of normal overall arterial flow at rest. Toe-brachial indices are not suggestive of PAD. Segmental pressures show possible bilateral femoropopliteal disease. Pulse volume recordings indicate good overall resting arterial flow. 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 Electronically Signed On 08-10-2024 22:07:46 EDT by FELIPA ALANIS M.D. Dictated By: FELIPA ALANIS Signed By:08/10/24220608/10/242206 DD/ 1548 TD/TT: Die Cast Die Maker: us Generic External Data Provider IMG XR PROCEDURES Final Result * XR FOOT SAMANTHA MIN 3 VIEWS (08/10/2024 12:04 PM EDT) Anatomical Region Laterality Modality Other 08/10/2024 12:0 4 PM EDT Narrative 08/10/2024 12:07 [place] [address] XRay Report Signed Patient: CLEO GEORGES MR#: [id number] : 1965 Acct:[id number] Age/Sex: 59 / F ADM Date: 08/10/24 Loc: CARD Attending Dr: Kailee CESPEDES Ordering Physician: Kailee Lopez Date of Service: 08/10/24 Procedure(s): XR foot SAMANTHA min 3V Accession Number(s): [id number] cc: MAHIN BERNAL ; Kailee Lopez [place] [address] Patient Name: CLEO GEORGES MRN: [facility]:[id number] date: 1965 Sex: F Assigned Patient Location: CARD Current Patient Location: CARD Accession/Order Number: [id number] Exam Date: 08/10/2024 11:59 Report Date: 08/10/2024 [...] Crews M.D. 08/10/2024 12:04 PM Dictation Location: [place] [address] Electronically authenticated by: [id number] Y Date: 08/10/2024 12:04 Dictated By: Misa Crews M.D. Signed By: 08/10/24 1207 DD/ 1204 TD/TT: Die Cast Die Maker: Procedure Note Radiology, Radiologist, MD - 08/10/2024 [place] [address] XRay Report Signed Patient: CLEO GEORGES LMR#: [id number] : 1965Acct:[id number] Age/Sex: 59 / FADM Date: 08/10/24 Loc: CARD Attending Dr: Kailee CESPEDES Ordering Physician: Kailee Lopez Date of Service: 08/10/24 Procedure(s): XR foot SAMANTHA min 3V Accession Number(s): [id number] cc: MAHIN BERNAL ; Kailee Lopez [facility] [place] [address] Patient Name: CLEO GEORGES MRN: [id number] date: 1965 Sex: F Assigned Patient Location: CARD Current Patient Location: CARD Accession/Order Number: [id number] Exam Date: 08/10/2024 11:59 Report Date: 08/10/2024 [...] Crews M.D. 08/10/2024 12:04 PM Dictation Location: [place] [address] Electronically authenticated by: [id number] Y Date: 2:04 Dictated By: Misa Crews M.D. Signed By:08/10/24 1207 DD/ 1204 TD/TT: Die Cast Die Maker: us Generic External Data Provider [facility] Final Result * OCT, Optic Nerve - OU - [...] Final from Last 3 Months Insurance MEDICARE [facility] MEDICAID [place] Care Teams Account Director Relationship Specialty Start Date End Date Aamir Purcell MD [address] [place] [address] PCP - General Family Medicine 08/12/22
--- OUTSIDE RECORDS SUMMARY | 2024-08-11 13:48 | XMS_ITS | Encounter Summary ---
Author Organization [facility] Address [address] [place] [address] Care Team Providers Care Chemistry Account Manager Name Role Phone Aamir Purcell MD Primary Care Provider [phone] Encounter Details Date Type Department Care Team (Late Contact Info) Description 04/29/2024 Abstract [facility] CI FM [address] [facility] [address] [place] [address] Unallocated, Noms Provider, [address] [place] [address] Social History Tobacco Use Types Packs/Day Years Used Date Smoking Tobacco: Never Assessed Comments Unknown Sex and Gender Information Value Date Recorded Sex Assigned at Not on file Legal Sex Female 6:48 PM EDT Gender Identity Not on file Sexual Orientation Not on file documented as of this encounter Plan of Treatment Upcoming Encounters Date Type Department Care Team ([facility] Contact Info) Description 08/17/2024 10:50 AM EDT Office Visit [facility] [address] [facility] [address] [place] [address] Nadia Quiñones, FISHERIES MANAGER-OFFICE MACHINES WIRER [address] [facility] [address] [place] [address] 09/27/2024 1:15 PM EDT Office Visit [facility] NB OPHT [address] [place] [address] Adislon Johnson, DO [address] [place] [address] documented as of this encounter Visit Diagnoses Not on filedocumented in this encounter Care Teams Chemistry Account Manager Relationship Specialty Start Date End Date Aamir Purcell MD [address] [place] [address] PCP - General Family Medicine 08/12/22 documented as of this encounter
--- OUTSIDE RECORDS SUMMARY | 2024-08-11 13:48 | XMS_ITS | Encounter Summary ---
Author Organization [facility] enter Address [address] [place] [address] Care Team Providers Care Biophysics Teacher Name Role Phone Aamir Purcell DO Primary Care Provider [phone] Adilson Hernandez MD Unavailable [phone] Kartik Mejia MD Unavailable [phone] Tisha Arriaga MD Unavailable Luis Miguel Kaur MD Unavailable [phone] Chris Zavala OD Unavailable Unavailable Encounter Details Date Type Department Care Team (Late st Contact Info) Description 07/19/2019 Telephone Infusion [facility] Outpatient Care [address] [place] [address] Nahomy Fenton, VIRGIE Social History [...] have Coronavirus / COVID-19? No / Unsure 07/21/2019 10:45 AM EDT documented as of this encounter [...] PM Balbina Chandler documented in this encounter Plan of Treatment Not on file documented as of this encounter Visit Diagnoses Not on filedocumented in this encounter Care Teams Biophysics Teacher Relationship Specialty Start Date End Date Binh Aamir PCP - General Family Medicine 03/06/17 Adilson Hernandez MD [facility] [place] [address] Ophthalmology 07/18/17 Kartik Mejia MD [address] [place] [address] [place] [address] Pain Medicine 12/25/17 Tisha Arriaga MD [address] [place] [address] Neurologist Neurology 07/18/17 Luis Miguel Kaur MD [address] [place] [address] [facility] Endocrinology, Diabetes & Metabolism 03/06/17 Chris Zavala, OD [address] [place] [address] Optometry 03/15/20 documented as of this encounter
--- OUTSIDE RECORDS SUMMARY | 2024-08-11 13:48 | XMS_ITS | Encounter Summary ---
Author Organization [facility] Address [address] [place] [address] Care Team Providers Care Bottom Stainer Name Role Phone Aamir Purcell MD Primary Care Provider [phone] Encounter Details Date Type Department Care Team (Late Contact Info) Description 05/05/2024 Abstract [facility] CI FM [address] [facility] [address] [place] [address] Unallocated, Noms Provider, [address] [place] [address] Social History Tobacco Use Types Packs/Day Years Used Date Smoking Tobacco: Never Assessed Comments Unknown Sex and Gender Information Value Date Recorded Sex Assigned at Not on file Legal Sex Female 6:48 PM EDT Gender Identity Not on file Sexual Orientation Not on file documented as of this encounter Plan of Treatment Upcoming Encounters Date Type Department Care Team ([facility] Contact Info) Description 08/17/2024 10:50 AM EDT Office Visit [facility] DERM [address] [facility] [address] [place] [address] Nadia Quiñones, CLINICAL ESTHETICIAN-INDUSTRIAL LABORER [address] [facility] [address] [place] [address] 09/27/2024 1:15 PM EDT Office Visit [facility] [address] [place] [address] Adilson Johnson, DO [address] [place] [address] documented as of this encounter Visit Diagnoses Not on filedocumented in this encounter Care Teams Bottom Stainer Relationship Specialty Start Date End Date Aamir Purcell MD [address] [place] [address] PCP - General Family Medicine 08/12/22 documented as of this encounter
--- OUTSIDE RECORDS SUMMARY | 2024-08-11 13:48 | XMS_ITS | Encounter Summary ---
Author Organization [facility] enter Address [address] [place] [address] Care Team Providers Care Skip Pit Worker Name Role Phone Aamir Purcell DO Primary Care Provider [phone] Adilson Hernandez MD Unavailable [phone] Kartik Mejia MD Unavailable [phone] Tisha Arriaga MD Unavailable Luis Miguel Kaur MD Unavailable [phone] Chris Zavala OD Unavailable Unavailable Encounter Details Date Type Department Care Team (Late st Contact Info) Description 07/19/2019 Telephone Infusion [facility] Outpatient Care [address] [place] [address] Nahomy Fenton, VIRGIE Social History [...] Telephone Encounter - Nahomy Fenton RN - 07/19/2019 10:29 AM EDT ..Patient called to pre-screen for potential symptoms of COVID-19 prior to next day appointment. ? If YES to: Fever or 1 symptom + ANY Comorbidity, call the COVID-19 Call Center at [phone] withAttending approval ? Comorbidity: Age >60: No [...] Center by Attending: No Patient appointment for 07/20/19 has been postponed 3 weeks No Prescribing [...] on filedocumented in this encounter Care Teams Skip Pit Worker Relationship Specialty Start Date End Date Aamir Purcell DO PCP - General Family Medicine 03/06/17 Adilson Hernandez MD [address] [place] [address] Ophthalmology 07/18/17 Kartik Mejia MD [address] [place] [address] [place] [address] Pain Medicine 12/25/17 Tisha Arriaga MD [address] [place] [address] Neurologist Neurology 07/18/17 Luis Miguel Kaur MD [address] [place], [place] [phone] Induction [facility] Endocrinology, Diabetes & Metabolism 03/06/17 Chris Zavala, OD [address] [place] [address] Optometry 03/15/20 documented as of this encounter
--- OUTSIDE RECORDS SUMMARY | 2024-08-11 13:48 | XMS_ITS | Encounter Summary ---
Author Organization [facility] Address [address] [place] [address] Care Team Providers Care Bi Manager Name Role Phone Aamir Purcell MD Primary Care Provider [phone] Encounter Details Date Type Department Care Team (Late Contact Info) Description 04/09/2024 Abstract [facility] CI FM [address] [facility] [address] [place] [address] Unallocated, Noms Provider, [address] [place] [address] Social History Tobacco Use Types Packs/Day Years Used Date Smoking Tobacco: Never Assessed Comments Unknown Sex and Gender Information Value Date Recorded Sex Assigned at Not on file Legal Sex Female 6:48 PM EDT Gender Identity Not on file Sexual Orientation Not on file documented as of this encounter Plan of Treatment Upcoming Encounters Date Type Department Care Team ([facility] Contact Info) Description 08/17/2024 10:50 AM EDT Office Visit [facility] DERM [address] [facility] [address] [place] [address] Nadia Quiñones, ELASTIC ASSEMBLER-WARD MAID [address] [facility] [address] [place] [address] 09/27/2024 1:15 PM EDT Office Visit [facility] [address] [place] [address] Adilson Johnson, DO [address] [place] [address] documented as of this encounter Visit Diagnoses Not on filedocumented in this encounter Care Teams Bi Manager Relationship Specialty Start Date End Date Aamir Purcell MD [address] [place] [address] PCP - General Family Medicine 08/12/22 documented as of this encounter
--- OUTSIDE RECORDS SUMMARY | 2024-08-11 13:48 | XMS_ITS | Encounter Summary ---
Author Organization [facility] Address [address] [place] [address] Care Team Providers Care Director Of It Operations Name Role Phone Aamir Purcell MD Primary Care Provider [phone] Encounter Details Date Type Department Care Team (Late Contact Info) Description 04/19/2024 Abstract [facility] CI [address] [facility] [address] [place] [address] Unallocated, Noms Provider, [address] [place] [address] Social History Tobacco Use Types Packs/Day Years Used Date Smoking Tobacco: Never Assessed Comments Unknown Sex and Gender Information Value Date Recorded Sex Assigned at Not on file Legal Sex Female 6:48 PM EDT Gender Identity Not on file Sexual Orientation Not on file documented as of this encounter Plan of Treatment Upcoming Encounters Date Type Department Care Team ([facility] Contact Info) Description 08/17/2024 10:50 AM EDT Office Visit [facility] DERM [address] [facility] [address] [place] [address] Nadia uQiñones, IMPORT CUSTOMS CLEARING AGENT-AIRLINE MECHANIC [address] [facility] [address] [place] [address] 09/27/2024 1:15 PM EDT Office Visit [facility] [address] [place] [address] Adilson Johnson, DO [address] [place] [address] documented as of this encounter Visit Diagnoses Not on filedocumented in this encounter Care Teams Director Of It Operations Relationship Specialty Start Date End Date Aamir Purcell MD [address] [place] [address] PCP - General Family Medicine 08/12/22 documented as of this encounter
--- OUTSIDE RECORDS SUMMARY | 2024-08-11 13:48 | XMS_ITS | Encounter Summary ---
Author Organization [facility] Address [address] [place] [address] Care Team Providers Care Bearing Inspector Name Role Phone Aamir Purcell MD Primary Care Provider [phone] Encounter Details Date Type Department Care Team (Late Contact Info) Description 05/03/2024 Abstract [facility] CI FM [address] [facility] [address] [place] [address] Unallocated, Noms Provider, [address] [place] [address] Social History Tobacco Use Types Packs/Day Years Used Date Smoking Tobacco: Never Assessed Comments Unknown Sex and Gender Information Value Date Recorded Sex Assigned at Not on file Legal Sex Female 6:48 PM EDT Gender Identity Not on file Sexual Orientation Not on file documented as of this encounter Plan of Treatment Upcoming Encounters Date Type Department Care Team ([facility] Contact Info) Description 08/17/2024 10:50 AM EDT Office Visit [facility] DERM [address] [facility] [address] [place] [address] Nadia Quiñones, COGNOS ARCHITECT-BUSINESS REPORTER [address] [facility] [address] [place] [address] 09/27/2024 1:15 PM EDT Office Visit [facility] [address] [place] [address] Adilson Johnson, DO [address] [place] [address] documented as of this encounter Visit Diagnoses Not on filedocumented in this encounter Care Teams Bearing Inspector Relationship Specialty Start Date End Date Aamir Purcell MD [address] [place] [address] PCP - General Family Medicine 08/12/22 documented as of this encounter
--- OUTSIDE RECORDS SUMMARY | 2024-08-11 13:48 | XMS_ITS | Encounter Summary ---
Author Organization [facility] Address [address] [place] [address] Care Team Providers Care Automation Driver Name Role Phone Aamir Purcell DO Primary Care Provider [phone] Adilson Hernandez MD Unavailable [phone] Kartik Mejia MD Unavailable [phone] Tisha Arriaga MD Unavailable Luis Miguel Kaur MD Unavailable [phone] Chris Zavala OD Unavailable Unavailable Encounter Details Date Type Department Care Team (Late st Contact Info) Description 07/05/2019 Telephone Infusion [facility] Outpatient Care [address] [place] [address] Nahomy Fenton, VIRGIE Social History [...] have Coronavirus / COVID-19? No / Unsure 06/22/2019 8:54 AM EDT documented as of this encounter [...] Telephone Encounter - Nahomy Fenton RN - 07/05/2019 11:42 AM EDT ..Patient called to pre-screen for potential symptoms of COVID-19 prior to next day appointment. ? If YES to: Fever or 1 symptom + ANY Comorbidity, call the COVID-19 Call Center at [phone] withAttending approval ? Comorbidity: Age >60: No [...] Center by Attending: No Patient appointment for 07/06/19 has been postponed 3 weeks No Prescribing [...] on filedocumented in this encounter Care Teams Automation Driver Relationship Specialty Start Date End Date Aamir Purcell DO PCP - General Family Medicine 03/06/17 Adilson Hernandez MD [address] [place] [address] Ophthalmology 07/18/17 Kartik Mejia MD [address] [place] [address] [place] [address] Pain Medicine 12/25/17 Tisha Arriaga MD [address] [place] [address] Neurologist Neurology 07/18/17 Luis Miguel Kaur MD [address] [place] [address] Executive Team Leader Endocrinology, Diabetes & Metabolism 03/06/17 Chris Zavala, OD [address] [place] [address] Optometry 03/15/20 documented as of this encounter
--- OUTSIDE RECORDS SUMMARY | 2024-08-11 13:48 | XMS_ITS | Encounter Summary ---
Author Organization [facility] Address [address] [place] [address] [place] [address] Care Team Providers Care Pharmacogeneticist Name Role Phone Aamir Purcell MD Primary Care Provider [phone] Encounter Details Date Type Department Care Team [...] Office Visit [facility] [address] [place] [address] Nadia Quiñones, DIRECTOR FUNDS DEVELOPMENT-WIRE SPRING RELAY ADJUSTER [address] [place] [address] 09/27/2024 1:15 PM EDT Office Visit [facility] [address] [place] [address] Adilson Johnson, [address] [place] [address] documented as of this encounter Procedures Procedure Name Priority Date/Time Associated Diagnosis Comments SEGMENTAL BLOOD PRESSURE 08/10/2024 3:48 PM EDT documented in this encounter Results * SEGMENTAL BLOOD PRESSURE (08/10/2024 3:48 PM EDT) Anatomical Region Laterality Modality Radiographic Kathie ging 08/10/2024 3:48 PM EDT Narrative 08/10/2024 10:07 PM EDT [facility] [place] [id number] Cardiology Report Signed Patient: CLEO FERNANDEZ MR#: [id number] : 1965 Acct:[id number] Age/Sex: 59 / F ADM Date: 08/10/24 Loc: CARD Attending Dr: Marlene CESPEDES Ordering Physician: Marlene Lopez Date of Service: 08/10/24 Procedure(s): CA segmental UE or LE SAMANTHA Accession Number(s): [id number] cc: MAHIN BERNAL ; Marlene Lopez [facility] Test Date: 2024-08-10 Pat Name: CLEO FERNANDEZ Department: Room: - Gender: Female Director Franchise Sales: : 1965 Requested By: Marlene Lopez Order Number: [id number] Reading MD: FELIPA ALANIS M.D. Interpretive Statements [...] ALANIS Signed By: 08/10/24220608/10/242206 DD/ 1548 TD/TT: First Aid Nurse: Procedure Note Radiology, Radiologist, - 08/10/2024 [place] [address] Cardiology Report Signed Patient: CLEO FERNANDEZ LMR#: [id number] : 1965Acct:[id number] Age/Sex: 59 / FADM Date: 08/10/24 Loc: CARD Attending Dr: Marlene CESPEDES Ordering Physician: Marlene Lopez Date of Service: 08/10/24 Procedure(s): CA segmental UE or LE SAMANTHA Accession Number(s): [id number] cc: MAHIN BERNAL ; Marlene Lopez [facility] Test Date: 2024-08-10 Pat Name: CLEO FERNANDEZ Department: Room: - Gender: Female Director Franchise Sales: : 1965 Requested By: Marlene Lopez Order Number: [id number] Reading MD: FELIPA ALANIS M.D. Interpretive Statements [...] FELIPA ALANIS Signed By:08/10/24220608/10/242206 DD/ 1548 TD/TT: First Aid Nurse: us Generic External Data Provider IMG XR PROCEDURES Final Result documented in this encounter Visit Diagnoses Not on filedocumented in this encounter Care Teams Pharmacogeneticist Relationship Specialty Start Date End Date Aamir Purcell MD [address] [place] [address] PCP - General Family Medicine 08/12/22 documented as of this encounter
--- OUTSIDE RECORDS SUMMARY | 2024-08-11 13:48 | XMS_ITS | Encounter Summary ---
Author Organization [facility] Address [address] [place] [address] Care Team Providers Care Stacker Name Role Phone BinhAamir DO Primary Care Provider [phone] Adilson Hernandez MD Unavailable [phone] Kartik Mejia MD Unavailable [phone] Tisha Arriaga MD Unavailable Luis Miguel Kaur MD Unavailable [phone] Chris Zavala OD Unavailable Unavailable Encounter Details Date Type Department Care Team (Late st Contact Info) Description 02/16/2015 Telephone Neurology [facility] [address] [place] [address] [place] [address] Clark Duncan Social History Tobacco Use Types Packs/Day Years Used Date Smoking Tobacco: Never Assessed Comments Unknown Sex and Gender Information Value Date Recorded Sex Assigned at Not on file Legal Sex Female 3:05 PM EST Gender Identity Female 10/15/2016 6:49 AM EDT Sexual Orientation Not on file documented as of this encounter Plan of Treatment Not on file documented as of this encounter Visit Diagnoses Not on filedocumented in this encounter Care Teams Stacker Relationship Specialty Start Date End Date Aamir Purcell DO PCP - General Family Medicine 03/06/17 Adilson Hernandez MD [address] [place] [address] Ophthalmology 07/18/17 Kartik Mejia MD [address] [place] [address] Pain Medicine 12/25/17 Tisha Arriaga MD [address] [place] [address] Neurologist Neurology 07/18/17 Luis Miguel Kaur MD [address] [place] [address] Pet Stylist Endocrinology, Diabetes & Metabolism 03/06/17 Chris Zavala, OD [address] [place] [address] Optometry 03/15/20 documented as of this encounter
--- OUTSIDE RECORDS SUMMARY | 2024-08-11 13:48 | XMS_ITS | Encounter Summary ---
Author Organization [facility] enter Address [address] [place] [address] Care Team Providers Care Setter Up Name Role Phone Aamir Purcell DO Primary Care Provider [phone] Adilson Hernandez MD Unavailable [phone] Kartik Mejia MD Unavailable [phone] Tisha Arriaga MD Unavailable Luis Miguel Kaur MD Unavailable [phone] Chris Zavala OD Unavailable Unavailable Reason for Visit * Reason Onset Date Comments Appointment 11/27/2018 Encounter Details Date Type Department Care Team (Late st Contact Info) Description 11/27/2018 Telephone Central Scheduling [address] [place] [address] Grace Washington MD [address] [facility] [address] [place] [address] Appointment Social History Tobacco Use Types Packs/Day Years [...] on file documented as of this encounter Functional Status [...] encounter Miscellaneous Notes * Telephone Encounter - Hamida Reyes - 12/01/2018 9:15 AM EDT Called pt and explained that she will need to have BS controlled and cleared with Dr Kaur and ptstates he already said it was OK to have the surgery. I asked if we can have that faxed to us so I can show Dr Washington. Pt worried about loosing her license and wants this taken care of now. Pt upset and wants a records release sent to her. I faxed release to pts home number which she states is also her fax number. Will also let Dr Washington know * Telephone Encounter - Erica Raúl - 12/01/2018 8:59 AM EDT Pt calling back stating that she needs a follow up appt with Dr. Washington before Dec 25 so she can schedule surgery. She can go to any location. Sent a message out 11/27 and pt states that she never received a call about an appt. Please call pt back with appt times. Please advise thanks ?? * Telephone Encounter - Hamida Reyes - 11/27/2018 11:22 AM EDT Called pt LM to call office Dr Washington discussed with pt that she will need to have BS controlled and the OK from Dr Natasha miranda to have cataract surgery. Pt can make appt with Dr Washington but will need to have clearance tomove forward. * Telephone Encounter - Rafiq Dobbins - 11/27/2018 9:54 AM EDT Pt states she needs a follow up appt with Dr. Washington before Dec 25 so she can schedule surgery. She can go to any location. documented in this encounter Plan of Treatment Not on file documented as of this encounter Visit Diagnoses Not on filedocumented in this encounter Care Teams Setter Up Relationship Specialty Start Date End Date Aamir Purcell DO PCP - General Family Medicine 03/06/17 Adilson Hernandez MD [facility] [place] [address] Ophthalmology 07/18/17 Kartik Mejia MD [address] [place] [address] Pain Medicine 12/25/17 Tisha Arriaga MD [address] [place] [address] Neurologist Neurology 07/18/17 Luis Miguel Kaur MD [address] [place] [address] Capture Manager Endocrinology, Diabetes & Metabolism 03/06/17 Chris Zavala, OD [address] [place] [address] Optometry 03/15/20 documented as of this encounter
--- OUTSIDE RECORDS SUMMARY | 2024-08-11 13:48 | XMS_ITS | Encounter Summary ---
Author Organization [facility] Address [address] [place] [address] Care Team Providers Care Supervisor Bridges And Buildings Name Role Phone Aamir Purcell MD Primary Care Provider [phone] Encounter Details Date Type Department Care Team (Late Contact Info) Description 08/09/2024 Abstract [facility] FM [address] [facility] [address] [place] [address] Unallocated, Noms Provider, [address] [place] [address] Social History Tobacco Use Types Packs/Day Years [...] Care Team ([facility] Contact Info) Description 08/17/2024 10:50 AM EDT Office Visit [facility]M [address] [place] [address] Nadia Quiñones, LEAF BINNER-USER EXPERIENCE MANAGER [address] [facility] [address] [place] [address] 09/27/2024 1:15 PM EDT Office Visit [facility] [address] [place] [address] Adilson Johnson, DO [address] [place] [address] documented as of this encounter Visit Diagnoses Not on filedocumented in this encounter Care Teams Supervisor Bridges And Buildings Relationship Specialty Start Date End Date Aamir Purcell MD [address] [place] [address] PCP - General Family Medicine 08/12/22 documented as of this encounter
--- OUTSIDE RECORDS SUMMARY | 2024-08-11 13:48 | XMS_ITS | Encounter Summary ---
Author Organization [facility] Address [address] [place] [address] Care Team Providers Care Photocopying Equipment Mechanic Name Role Phone Aamir Purcell MD Primary Care Provider [phone] Encounter Details Date Type Department Care Team (Late Contact Info) Description 12/05/2022 Clinisync Result Encounter [facility] External Department Unsolicited Maine Chávez, ACOUSTIC SENSOR OPERATOR [address] [facility] [address] [place] [address] Social History Tobacco Use Types Packs/Day Years Used Date Smoking Tobacco: Never Assessed Comments Unknown Sex and Gender Information Value Date Recorded Sex Assigned at Not on file Legal Sex Female 6:48 PM EDT Gender Identity Not on file Sexual Orientation Not on file documented as of this encounter Plan of Treatment Upcoming Encounters Date Type Department Care Team ([facility] [address] Contact Info) Description 08/17/2024 10:50 AM EDT Office Visit [facility]ER[facility] [address] [facility] [address] [place] [address] Nadia Quiñones, STONE MILL OPERATOR-PRODUCT SUPPORT REPRESENTATIVE [address] [facility] [address] [place] [address] 09/27/2024 1:15 PM EDT Office Visit [facility] [address] [place] [address] Adilson Johnson, DO [address] [place] [address] documented as of this encounter Procedures Procedure [...] by: SINDY Technologist: TAMMIE us Maine Chávez ACOUSTIC SENSOR OPERATOR [facility] Final Result documented in this encounter Visit Diagnoses Not on filedocumented in this encounter Care Teams Photocopying Equipment Mechanic Relationship Specialty Start Date End Date Aamir Purcell MD [address] [place] [address] PCP - General Family Medicine 08/12/22 documented as of this encounter
--- OUTSIDE RECORDS SUMMARY | 2024-08-11 13:48 | XMS_ITS | Encounter Summary ---
Author Organization [facility] Address [address] [place] [address] Care Team Providers Care Freelance Web Designer Name Role Phone Aamir Purcell MD Primary Care Provider [phone] Encounter Details Date Type Department Care Team (Late Contact Info) Description 12/13/2022 Clinisync Result Encounter [facility] External Department Unsolicited Maine Chávez, INSULATION BOARD CALENDER OPERATOR [address] [facility] [address] [place] [address] Social History Tobacco Use Types Packs/Day Years Used Date Smoking Tobacco: Never Assessed Comments Unknown Sex and Gender Information Value Date Recorded Sex Assigned at Not on file Legal Sex Female 6:48 PM EDT Gender Identity Not on file Sexual Orientation Not on file documented as of this encounter Plan of Treatment Upcoming Encounters Date Type Department Care Team ([facility] Contact Info) Description 08/17/2024 10:50 AM EDT Office Visit [facility] DERM [address] [facility] [address] [place] [address] Nadia Quiñones, LOOM SETTER-GENERAL ROAD SUPERVISOR [address] [facility] [address] [place] [address] 09/27/2024 1:15 PM EDT Office Visit [facility] [address] [place] [address] Adilson Johnson, DO [address] [place] [address] documented as of this encounter Procedures Procedure [...] Armstrong MD Transcribed by: SINDY Technologist: ANGÉLICA Maine Chávez NP [facility] Final Result documented in this encounter Visit Diagnoses Not on filedocumented in this encounter Care Teams Freelance Web Designer Relationship Specialty Start Date End Date Aamir Purcell MD [facility] [place] [address] PCP - General Family Medicine 08/12/22 documented as of this encounter
--- OUTSIDE RECORDS SUMMARY | 2024-08-11 13:48 | XMS_ITS | Encounter Summary ---
Author Organization [facility] Address [address] [place] [address] Care Team Providers Care Hatchery Supervisor Name Role Phone Aamir Purcell DO Primary Care Provider [phone] Adilson Hernandez MD Unavailable [phone] Kartik Mejia MD Unavailable [phone] Tisha Arriaga MD Unavailable Luis Miguel Kaur MD Unavailable [phone] Chris Zavala OD Unavailable Unavailable Reason for Visit * Reason Onset Date Comments Other 11/26/2018 Encounter Details Date Type Department Care Team (Late st Contact Info) Description 11/26/2018 Telephone Central Scheduling [address] [place] [address] Grace Washington MD [address] [facility] [address] [place] [address] Other Social History Tobacco Use Types Packs/Day Years [...] encounter Miscellaneous Notes * Telephone Encounter - Rafiq Dobbins - 11/26/2018 2:01 PM EDT Pt is wondering if Dr. 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 Ferguson yet? She states she needs to have the surgery before January because she has to get her license. She states she has beenwaiting weeks to hear back. She wants to know if Dr. Washington wants to do the surgery or not. Pleaseadvise pt. documented in this encounter Plan of Treatment Not on file documented as of this encounter Visit Diagnoses Not on filedocumented in this encounter Care Teams Hatchery Supervisor Relationship Specialty Start Date End Date Aamir Purcell DO PCP - General Family Medicine 03/06/17 Adilson Hernandez MD [address] [place] [address] Ophthalmology 07/18/17 Kartik Mejia MD [address] [place] [address] [place] [address] Pain Medicine 12/25/17 Tisha Arriaga MD [address] [place] [address] Neurologist Neurology 07/18/17 Luis Miguel Kaur MD [address] [place] [address] Medical I D Sales Endocrinology, Diabetes & Metabolism 03/06/17 Chris Zavala, OD [address] [place] [address] Optometry 03/15/20 documented as of this encounter
--- OUTSIDE RECORDS SUMMARY | 2024-08-11 13:48 | XMS_ITS | Encounter Summary ---
Author Organization [facility] Address [address] [address] [place] [address] Care Team Providers Care Sack Sorter Name Role Phone Aamir Purcell MD Primary Care Provider [phone] Encounter Details Date Type Department Care Team (Late Contact Info) Description 03/31/2023 Orders Only [facility] FM [address] [place] [address] A, Unknown Practice [address] [place], [place] [address] Social History Tobacco Use Types Packs/Day Years Used Date Smoking Tobacco: Never Assessed Comments Unknown Sex and Gender Information Value Date Recorded Sex Assigned at Not on file Legal Sex Female 6:48 PM EDT Gender Identity Not on file Sexual Orientation Not on file documented as of this encounter Plan of Treatment Upcoming Encounters Date Type Department [facility] Description 08/17/2024 10:50 AM EDT Office Visit [facility] [address] [place] [address] Nadia Quiñones, RACE CAR DRIVER-CLINICAL NURSING DIRECTOR [address] [facility] [address] [place] [address] 09/27/2024 1:15 PM EDT Office Visit [facility] [address] [place] [address] Adilson Johnson, [address] [place] [address] documented as of this encounter Procedures Procedure Name Priority Date/Time Associated Diagnosis Comments SCANNED LABS Routine 03/29/2023 1:07 PM EST documented in this encounter Results * SCANNED LABS (03/29/2023 1:07 PM EST) us Unknown Practice A LAB CHG PERFORMABLES Final Re sult documented in this encounter Visit Diagnoses Not on filedocumented in this encounter Care Teams Sack Sorter Relationship Specialty Start Date End Date Aamir Purcell MD [address] [place] [address] PCP - General Family Medicine 08/12/22 documented as of this encounter
--- OUTSIDE RECORDS SUMMARY | 2024-08-11 13:49 | XMS_ITS | Referral Summary ---
Author Organization [facility] Address [address] [place] [address] Care Team Providers Care Treasury Manager Name Role Phone Aamir Purcell MD Primary Care Provider [phone] Social History Tobacco Use Types Packs/Day Years Used Date Smoking Tobacco: Never Assessed ID Safety & Environment Answer Date Rec orded Fear of Current or Ex-Partner Not on file Emotionally Abused Not on file 04/10/2023 Physically Abused Not on file 04/10/2023 Sexually Abused Not on file 04/10/2023 Physically or Sexually Abused Not on file Comments Unknown Sex and Gender Information Value Date Recorded Sex Assigned at Not on file Legal Sex Female 10:27 PM EDT Gender Identity Not on file [...] Yes: Add to Previous draw if able us Dione Yinglona LAB BLOOD ORDERABLES Final Res ult LAB CONVERSIONS from Last 3 Months or Most Recently Relevant to Health Maintenance Insurance MEDICARE Care Teams Treasury Manager Relationship Specialty Start Date End Date Aamir Purcell MD [address] [place] [address] PCP - General 10/19/21
--- OUTSIDE RECORDS SUMMARY | 2024-08-11 13:49 | XMS_ITS | Clinical Summary ---
Author Organization [facility] Address [address] [place] [address] Phone Care Team Providers Care Commanding Officer Traffic Division Name Role Phone Physician, Pcp Unknown Primary [...] History Medical History Date Comments Diabetes mellitus (CMS/[facility] V24, [facility] V28) Social History Tobacco Use Types Packs/Day [...] LAB CHEMISTRY METHOD 04/06/2021 5:31 AM EST [facility] Potassium 4.2 3.6 - 5.1 mmol/L LAB CHEMISTRY METHOD 04/06/2021 5:31 AM EST [facility] Chloride 106 98 - 107 mmol/L LAB CHEMISTRY METHOD 04/06/2021 5:31 AM EST [facility] CO2 21(L) 22 - 32 mmol/L LAB CHEMISTRY METHOD 04/06/2021 5:31 AM [facility] Anion Gap 9 6 - 18 LAB CHEMISTRY METHOD 04/06/2021 5:31 AM [facility] Glucose 192(H) 70 - 99 mg/dL LAB CHEMISTRY METHOD 04/06/2021 5:31 AM [facility] BUN 22(H) 8 - 20 mg/dL LAB CHEMISTRY METHOD 04/06/2021 5:31 AM [facility] Creatinine 1.06 0.60 - 1.30 mg/dL LAB CHEMISTRY METHOD 04/06/2021 5:31 AM [facility] eGFR 58 mL/min/1. 73m2 LAB CHEMISTRY METHOD 04/06/2021 5:31 AM [facility] BUN/Creatinine Ratio 20.8(H) 12.0 - 20.0 LAB CHEMISTRY METHOD 04/06/2021 5:31 AM [facility] Calcium 9.0 8.9 - 10.3 mg/dL LAB CHEMISTRY METHOD 04/06/2021 5:31 AM [facility] AST (SGOT) 14(L) 15 - 41 unit/L LAB CHEMISTRY METHOD 04/06/2021 5:31 AM [facility] ALT (SGPT) 11 7 - 52 unit/L LAB CHEMISTRY METHOD 04/06/2021 5:31 AM [facility] Alkaline Phosphatase 88 32 - 91 unit/L LAB CHEMISTRY METHOD 04/06/2021 5:31 AM [facility] Total Protein 6.3 6.1 - 7.9 g/dL LAB CHEMISTRY METHOD 04/06/2021 5:31 AM [facility] Albumin 3.4(L) 3.5 - 4.8 g/dL LAB CHEMISTRY METHOD 04/06/2021 5:31 AM EST [facility] Total Bilirubin 0.4 0.3 - 1.2 mg/dL LAB CHEMISTRY METHOD 04/06/2021 5:31 AM EST [facility] Blood Venous blood specimen / Unknown Venipuncture / Unknown 04/06/2021 4:22 AM EST 04/06/2021 5:03 AM EST us Sin Carlson MD LAB BLOOD ORDERABLES Final Resul t [facility] [address] [place] [address] * (ABNORMAL) Hemoglobin A1c (04/06/2021 12:42 AM EST) Hemoglobin A1C 11.8(H) <=5.6 % LAB CHEMISTRY METHOD 04/06/2021 12:31 PM EST [facility] Comment: HbA1c values of 5.7-6.4 percent indicate an increased risk for developing diabetes mellitus. HbA1c values greater than or equal to 6.5 percent are diagnostic of diabetes mellitus. For diagnosis of diabetes in individuals without unequivocal hyperglycemia, results should be confirmed by repeat testing. Mean Bld Glu Estim. 292 mg/dL LAB CHEMISTRY METHOD 04/06/2021 12:31 PM EST [facility] ([facility] LAB Blood Venous blood specimen / Unknown Venipuncture / Unknown 04/06/2021 12:42 AM EST 04/06/2021 12:50 AM EST us Sin Carlson MD LAB BLOOD ORDERABLES Final Resul t [facility] ([facility] LAB [address] [place] [address] from Last 3 Months or Most Recently Relevant to Health Maintenance Insurance MEDICARE [facility] Advance Directives * Full Code (Latest Code [...] currently active code status orders. Care Teams Commanding Officer Traffic Division Relationship Specialty Start Date End Date Physician, Pcp Unknown PCP - General 04/05/21
--- OUTSIDE RECORDS SUMMARY | 2024-08-11 13:49 | XMS_ITS | Clinical Summary ---
Author Organization [facility] Address [address] [place] [address] Care Team Providers Care Mold Dresser Name Role Phone Aamir Purcell DO Primary Care Provider [phone] Allergies Active Allergy Reactions Criticality Noted Date [...] series) 2038 Medical Devices Implanted Type Area Smelting Engineer Device Identifier Shelf Expiration Date Model / Serial / Lot Stent-07/27/2012 Implanted:Qty: 1 on 07/27/2012 Stent Right: [employer] [id number] ISTENT / [id number] / [id number] Description:Non-clinical son ting has demonstrated that the iStent Trabecular Micro-Bypass Stent (Models [id number] and [id number]) is MR Conditional. A patient with this [...] above, the iStent Trabecular Micro-Bypass Stent (Models [id number] and [id number]) is not expected to produce a clinically significant temperature rise after 15 minutes of continuous scanning. In non-clinical testing, the image artifact caused by the device extends less than 15 mm from the device when imaged with a gradient echo pulse sequence and a 3.0 T MRI system Insurance MEDICARE PART A & B PART A CLAIMS [address] [address] [place] [address] [facility] Advance Directives For more information, please contact: [phone] Documents on File Type Date Recorded Patient Launchman Expl anation Power of Passenger Agent 05/28/2021 12:09 PM Power of Passenger Agent 05/28/2021 12:01 PM * Full Code - Unverified (Latest Code Status on File) Date Activated Date Inactivated Comments 05/18/2021 10:06 PM 05/29/2021 7:56 PM Care Teams Mold Dresser Relationship Specialty Start Date End Date Aamir Purcell DO [address] [place] [address] PCP - General Family Medicine 03/28/17
--- OUTSIDE RECORDS SUMMARY | 2024-08-11 13:49 | XMS_ITS | Encounter Summary ---
Author Organization [facility] Address [address] [place] [address] Care Team Providers Care Exam Proctor Name Role Phone Aamir Purcell MD Primary Care Provider [phone] Encounter Details Date Type Department Care Team (Late st Contact Info) Description 10/27/2021 Lab Requisition [facility] Lab [address] [place] [id number] Migue Cole MD [address] [address] Social History Tobacco Use Types Packs/Day Years [...] - 48.0 % 10/27/2021 8:48 PM EDT [facility] ([facility]) Blood Venous blood specimen / Unknown 10/27/2021 7:21 PM EDT 10/27/2021 7:22 PM EDT us Migue Cole MD LAB BLOOD ORDERABLES Final Result [facility] ([facility]) [address] [place] [address] * (ABNORMAL) Hemoglobin (10/27/2021 7:21 PM EDT) Hemoglobin 10.7(L) 12.0 - 15.0 g/dL 10/27/2021 8:49 PM EDT [facility] ([facility]) Blood Venous blood specimen / Unknown 10/27/2021 7:21 PM EDT 10/27/2021 7:22 PM EDT Migue Cole MD LAB BLOOD ORDERABLES Final Result Performing Organization Address City/[facility] Co de Phone Number [facility] [address] [place], [place] [id number] documented in this encounter Visit Diagnoses Not on filedocumented in this encounter Care Teams Exam Proctor Relationship Specialty Start Date End Date Aamir Purcell MD [address] [place] [address] PCP - General 10/19/21 documented as of this encounter
--- OUTSIDE RECORDS SUMMARY | 2024-08-11 13:49 | XMS_ITS | Clinical Summary ---
Author Organization [facility] Address [address] [place] [address] Care Team Providers Care At Risk Specialist Name Role Phone Aamir Purcell MD Primary Care Provider [phone] Social History Tobacco Use Types Packs/Day Years Used Date Smoking Tobacco: Never Assessed [place] Safety & Environment Answer Date Rec orded [...] 08/26/2018 2:24 PM EDT Plan of Treatment Health Maintenance Due Date Last Done Comments CT Colonography 1963 Colonoscopy 1963 Colorectal Cancer Screening 1963 FIT-DNA 1963 FIT 1963 FOBT 1963 Medicare Annual Wellness (AWV) 1963 Sigmoidoscopy 1963 Diabetes: Retinopathy Screening 1973 Depression Screening 1975 Diabetes: Urine Protein Screening 1982 Pap Smear 02/07/1984 Adult Tetanus 1985 Cervical Cancer Screening 1993 HPV/Cotest 1993 Mammogram 2003 Zoster Vaccines (1 of 2) 2013 11/04/2013 Diabetes: Hemoglobin A1C 10/11/2018 07/11/2018 COVID-19 Vaccine (1 - 2023-2 5 season) 2023 Influenza Vaccine (Season Ended) 2024 11/05/19 14 Pneumococcal Vaccine: Pediat rics (0 to 5 Years) and At-Risk Patients (6 to 64 Years) Aged Out 07/29/2012 No longer eligi ble based on patient's age to complete this topic HIB Vaccines Aged Out No longer eligi [...] patient's age to complete this topic Meningococcal Vaccine Aged Out No cheryl natacha eligible based on patient's age to complete this topic Rotavirus Vaccines Aged Out No longer eligible based [...] to Previous draw if able us Dione Quintana LAB BLOOD ORDERABLES Final Res ult LAB CONVERSIONS from Last 3 Months or Most Recently Relevant to Health Maintenance Insurance MEDICARE Care Teams At Risk Specialist Relationship Specialty Start Date End Date Aamir Purcell MD [address] [place] [address] PCP - General 10/19/21
--- OUTSIDE RECORDS SUMMARY | 2024-08-11 13:49 | XMS_ITS | Encounter Summary ---
Author Organization [facility] Address [address] [place] [address] Care Team Providers Care Supervisor Home Economics Name Role Phone Aamir Purcell DO Primary Care Provider [phone] Adilson Hernandez MD Unavailable [phone] Kartik Mejia MD Unavailable [phone] Tisha Arriaag MD Unavailable Luis Miguel Kaur MD Unavailable [phone] Chris Zavala OD Unavailable Unavailable Reason for Visit * Reason Onset Date Comments Order Request 03/15/2019 Encounter Details Date Type Department Care Team (Late st Contact Info) Description 03/15/2019 Telephone Central Scheduling [address] [place] [address] Arcenio Lopez Order Request Social History Tobacco Use Types Packs/Day Years [...] 01/22/2018 3:10 PM EST Balbina Goss * Do you have serious difficulty walking [...] encounter Miscellaneous Notes * Telephone Encounter - Franck Mtz MD - 03/15/2019 2:40 PM EST Discussed over the phone??? We are monitoring her kidney function??? No need for urology appointment at this time??? No UTI/urinary symptoms otherwise??? Some changes in coloration that vary, but nothing clearly significant other than that- her kidney functions came back to baseline??? We adjusted the dosed out of IV IG- on another note, will take a baby aspirin a day for now??? We will proceed from there??? * Telephone Encounter - Arcenio Lopez - 03/15/2019 8:12 AM EST Patient is calling stating that she was to receive a referral to Urology based off of a conversation that the Patient had with Dr. Mtz last week. Patient is requesting a phone call to discuss if this is still the plan, and if so, is requesting a referral to be written. Thank you, JDS documented in this encounter Plan of Treatment Not on file documented as of this encounter Visit Diagnoses Not on filedocumented in this encounter Care Teams Supervisor Home Economics Relationship Specialty Start Date End Date Aamir Purcell DO PCP - General Family Medicine 03/06/17 Adilson Hernandez MD [address] [place] [address] Ophthalmology 07/18/17 Kartik Mejia MD [address] [place] [address] [place] [address] Pain Medicine 12/25/17 Tisha Arriaga MD [address] [place] [phone] Neurologist Neurology 07/18/17 Luis Miguel Kaur MD [address] [place] [address] [employer] Endocrinology, Diabetes & Metabolism 03/06/17 Chris Zavala, OD [address] [place] [address] Optometry 03/15/20 documented as of this encounter
--- OUTSIDE RECORDS SUMMARY | 2024-08-11 13:49 | XMS_ITS | Clinical Summary ---
Author Organization [facility] Address [address] [place] [id number] Care Team Providers Care Bacteriologist Fishery Name Role Phone Aamir Purcell DO Primary Care Provider [phone] Adilson Hernandez MD Unavailable [phone] Kartik Mejia MD Unavailable [phone] Tisha Arriaga MD Unavailable Luis Miguel Kaur MD Unavailable [phone] Chris Zavala OD Unavailable Unavailable Allergies Active Allergy Reactions Criticality Noted Date Comments Moxifloxacin Rash High 10/28/2016 Cephalexin Itching High 10/28/2016 burning Tapentadol High 10/28/2016 Passed out Medications Multiple Vitamin (MULTI-DAY PO) take 1 tablet by mouth daily.. Active Alpha-Lipoic Acid 300 MG Tab Take 1 tablet by mouth 2 times daily. 60 tablet 5 8 Active Cholecalciferol (VITAMIN D3) 5000 units CapIndications: MGUS (monoclonal gammopathy of unknown significance),T ype 2 diabetes mellitus with diabetic polyneuropathy, without long-term current use of insulin,Acquire d hypothyroidism, Essential hypertension, benign Take 1 capsule by mouth daily. 100 capsule 3 9 Active immune globulin, human, 20 GM/200ML Solution 400 mg/kg by Intravenous route As directed PRN. Active immune globulin, human, 20 GM/200ML 15 g by Intravenous route every 14 days. 15 grams Active dorzolamide-tasha olol 22.3-6.8 MG/ML Solution ophthalmic solution Place 1 drop in both eyes 2 times daily. 10 mL 1 Active Continuous Blood Gluc Sensor (FreeStyle Juanpablo 14 Day Sensor) Misc Inject 2 Each under the skin every 14 days. 2 Each 3 2 Active levothyroxine 50 MCG tablet Take 1 tablet by mouth daily. 90 tablet 2 2 Active Insulin Lispro, 1 Unit Dial, 100 UNIT/ML Solution Pen-injectorInd ications:Type 1 diabetes mellitus with diabetic neuropathy Use less than 30 units daily with sliding scale. 15 mL 3 2 Active Insulin Degludec (Tresiba FlexTouch) 100 UNIT/ML Solution Pen-injector injectionIndica tions:Type 1 diabetes mellitus with diabetic neuropathy Inject 25 Units under the skin at bedtime. 900 mL 3 2 Active ezetimibe (Zetia) 10 MG tablet Take 1 tablet by mouth daily. 30 tablet 3 2 Active Netarsudil Dimesylate (Rhopressa) 0.02 % SolutionIndicat ions:Primary open angle glaucoma (POAG) of right eye, severe stage,Primary open angle glaucoma (POAG) of left eye, severe stage Place 1 drop in both eyes at bedtime. 5 mL 2 Active Netarsudil Dimesylate (Rhopressa) 0.02 % Solution Apply 1 drop to eye at bedtime. 2.5 mL 2 Active Active Problems Problem Noted Date Diagnosed Date Chronic rhinitis 09/26/2020 Internal derangement of right knee 09/26/2020 Primary open angle glaucoma (POAG) of right eye, severe stage 04/20/2020 Overview (04/20/2020): Added automatically from request for surgery [id number] Primary open angle glaucoma (POAG) of left eye, severe stage 12/31/2019 Overview (12/31/2019): Added automatically from request for surgery [id number] Osteomyelitis 04/23/2019 Nuclear sclerotic cataract of left eye 9 Overview (12/16/2018): Added automatically from request for surgery [id number] CIDP (chronic inflammatory demyelinating polyneu ropathy) 06/24/2018 Vitamin D deficiency 03/19/2018 DDD (degenerative disc disease), cervical 2018 Osteoarthritis cervical spine 03/19/2018 Postmenopausal status 03/19/2018 Osteopenia determined by x-ray 03/19/2018 Primary osteoarthritis of left wrist 03/19/2018 Primary osteoarthritis of right wrist 03/19/2018 Primary osteoarthritis of both knees 03/19/2018 Primary osteoarthritis of both hips 03/19/2018 POEMS syndrome 03/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 Neuropathy of hand 02/16/2018 Fatigue 01/22/2018 Disorder of bone and cartilage 01/22/2018 History of Raynaud's syndrome 01/22/2018 Bilateral hand pain 01/22/2018 Chronic pain of both knees 01/22/2018 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 -steroidal anti-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 (NSAID) 01/22/2018 Alkaline phosphatase elevation 01/22/2018 Anemia 01/22/2018 Cervicalgia 01/22/2018 Chronic pain of both shoulders 01/22/2018 Bilateral biceps tendonitis 01/22/2018 Tendonitis of both rotator cuffs 01/22/2018 Bilateral wrist pain 01/22/2018 Osteoarthritis of both hands 01/22/2018 Hip pain, right 01/22/2018 Mixed hyperlipidemia 10/16/2017 Diabetes mellitus 10/16/2017 Chest pain 10/09/2017 Assessment & Plan (10/10/2017 11:24 AM EDT): Seen by cardiology ACS ruled out - Enzymes <0.02 x4 sets Continue medical management Follow-up with cardiology as outpatient Headache 08/07/2017 MGUS (monoclonal gammopathy of unknown significa nce) 03/16/2017 Assessment & Plan (10/10/2017 11:26 AM EDT): Per history - Follow up with hematology/oncology as outpatient Non-pressure chronic ulcer o f other part of left lower leg with muscle involvement without evidence of necrosis 03/14/2017 Fracture of third toe, left, closed 02/15/2016 Closed displaced fracture of first metatarsal bone of left foot with routine healing 04/17/2015 Palpitations 06/21/2013 Coronary atherosclerosis 06/24/2012 Diaphragmatic hernia 06/24/2012 Gastroesophageal reflux disease 06/24/2012 Glaucoma 06/24/2012 Hyperlipidemia 06/24/2012 Irritable bowel syndrome 06/24/2012 Asthma Assessment & Plan (10/10/2017 11:25 AM EDT): Stable without exacerbation 02 per protocol, IS Routine aerosols Type 2 diabetes mellitus wit h diabetic polyneuropathy, with long-term current use of insulin Assessment & Plan (10/10/2017 11:25 AM EDT): Initiate Accuchecks with SSI/ADA diet. Resume home medications as appropriate and follow-up with PCP after discharge for continued evaluation and management. Essential hypertension, benign Assessment & Plan (10/10/2017 11:25 AM EDT): Continue home medications and monitor VS per protocol. Follow-up with PCP after discharge for further evaluation and management. Sleep apnea Assessment & Plan (10/10/2017 11:25 AM EDT): CPAP per home settings Hypothyroidism Assessment & Plan (10/10/2017 11:25 AM EDT): Resume home medications Follow-up with PCP after discharge Resolved Problems Problem Noted Date Diagnosed Date Resolved Date Knee injury, left, initial encounter 01/22/2018 03/19/2018 Knee injury, right, initial encounter 01/22/2018 03/19/2018 Immunizations Immunization Administration Dates Next Due Influenza Vaccine 11/04/2013 Influenza Vaccine 0.5ml 10/07/2019 Influenza Vaccine, Trivalent 11/04/2013 Pneumococcal Polysac 23-Valent Vaccine 3 Pneumococcal Vaccine, Unspecified 10/07/2019 Zoster Vaccine, Live 11/04/2013 Family History Medical History Relation Name Comments Cancer- Other Father Diabetes Father Diabetes Mother Heart Disease - Other Mother Hypertension Mother Stroke Mother Breast Cancer Other Cancer- Other Other Diabetes Other Heart Disease - Other Other Hypertension Other Stroke Other Blindness Neg Hx Glaucoma Neg Hx Relation Name Status Comments Father Mother Other Social History Tobacco Use Types Packs/Day Years Used Date Smoking Tobacco: Former Cigarettes Q uit: 1996 Smokeless Tobacco: Never Tobacco Cessation:Counseling Given: No Alcohol Use Standard Drinks/Week Comments No 0 (1 standard drink = 0.6 oz pur e alcohol) Comments No Sex and Gender Information Value Date Recorded Sex Assigned at Not on file Legal Sex Female 3:05 PM EST Gender Identity Female 10/15/2016 6:49 AM EDT Sexual Orientation Not on file Last Filed Vital Signs Vital Sign Reading Time Taken Comments Blood Pressure 132/63 05/11/2021 3:31 PM EDT Pulse 84 05/11/2021 3:31 PM EDT Temperature 36.2 C (97.2 F) 05/11/2021 1:31 PM EDT Respiratory Rate 16 05/11/2021 3:31 PM EDT Oxygen Saturation 99% 01/18/2021 8:57 AM EST Inhaled Oxygen Concentration - - Weight 70.3 kg (155 lb) 05/08/2021 1:53 PM EDT Height 166.4 cm (5' 5.5 ) 05/08/2021 1:53 PM EDT Body Mass Index 25.4 05/08/2021 1:53 PM EDT Plan of Treatment Health Maintenance Due Date Last Done Comments DIABETIC FOOT EXAM 1963 TETANUS 1963 HIV SCREENING DISCUSSION 1978 TDAP (ADULT) 1982 CERVICAL CANCER SCREENING DISCUSSION 02/07/1984 COLORECTAL CANCER SCREENING DISCUSSION 02/07/2008 ZOSTER (SHINGLES) VACCINE (2 of 3) 12/30/2013 11/04/2013 MAMMOGRAM SCREENING DISCUSSION 04/04/2018 04/04/2017 EYE EXAM 06/20/2018 06/20/2017 PNEUMOCOCCAL VACCINE SERIES (2 of 2 - PCV) 10/06/2020 10/07/2019, 07/29/2012 HBA1C TEST 11/18/2021 05/19/2021, 02/18, 09/01/2020, Additional history exists LIPIDS 03/15/2022 03/15/2021, 0707/2020, 05/15/2020, Additional history exists URINE MICROALBUMIN TEST 03/15/2022 03/15/19, 09/01/2020, 05/15/2020, Additional history exists COVID-19 VACCINE ( - 2023- season) 2023 INFLUENZA VACCINE (Season Ended) 2024 10/07/2019, 11/04/2013, 11/04/2013 RSV VACCINE (1 - 1-dose 75+ series) 2038 HEPATITIS C VIRUS SCREENING Completed 01/22/2018, 03/06/2017 PNEUMOCOCCAL VACCINE SERIES Discontinued 10/07/2019, 07/29/2012 POTASSIUM Discontinued 03/15/2021, 12/19, 09/01/2020, Additional history exists TSH Discontinued 03/15/2021, 08/17, 03/13/2020, Additional history exists HEP B VACCINE Aged Out No longer elig ible based on patient's age to complete this topic Medical Devices Implanted Type Area Hair Colorist Device Identifier Shelf Expiration Date Model / Serial / Lot Lens [id number] D 23.5 - [id number] Implanted:Qty: 1 on 12/23/2018 by Grace Washington MD at [facility] LOC Left: Eye [employer] 09/16/2021 [id number] D 23.5 / [id number] / Implant Opth 250sq Mm Jo 1 Qdrnt Ins Fx Sut Hl Rcs Knt Cpb - [id number] Implanted:Qty: 1 on 02/23/2020 by Grace Wasihngton MD at [facility] Left: Eye [employer] 11/23/2020 [id number] / [id number] / Osc Tissue Cornea Padmini [id number] Implanted:Qty: 1 on 02/23/2020 by Grace Washington MD at [facility] Left: Eye [employer] [facility] 08/16/2020 GLYCERIN / / [id number] Procedures Procedure Name Priority Date/Time Associated Diagnosis Comments HC CREATININE NOT BLOOD Routine 03/15/2021 10:50 AM EST Type 1 diabetes mellitus with diabetic neuropathy HEMOGLOBIN A1C Routine 03/15/2021 8:58 AM EST Type 1 diabetes mellitus with diabetic neuropathy TSH W/FT4 REFLEX Routine 03/15/2021 8:58 AM EST Type 1 diabetes mellitus with diabetic neuropathy Acquired hypothyroidism COMPREHENSIVE METABOLIC PANEL Routine 03/15/2021 8:58 AM EST Type 1 diabetes mellitus with diabetic neuropathy LIPID PANEL W CALCULATED LDL Routine 03/15/2021 8:58 AM EST Type 1 diabetes mellitus with diabetic neuropathy HEPATITIS A, B, C Routine 01/22/2018 4:2 9 PM EST Cervicalgia Disorder of bone and cartilage Bilateral hand pain Chronic pain of both knees Chronic pain of both shoulders Bilateral biceps tendonitis Tendonitis of both rotator cuffs Bilateral wrist pain Osteoarthritis of both hands, unspecified osteoarthritis type Hip pain, right Knee injury, left, initial encounter Knee injury, right, initial encounter MGUS (monoclonal gammopathy of unknown significance) Anemia, unspecified type Fatigue, unspecified type History of Raynaud's syndrome 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-steroidal anti-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 (NSAID) Alkaline phosphatase elevation Type 1 diabetes mellitus with diabetic neuropathy DIABETIC EYE EXAM (OUTSIDE) Routine 06/20/2017 MAMMO SCREENING BILATERAL Routine 04/04/2017 12:46 PM EST Screening mammogram, encounter for from Last 3 Months or Most Recently Relevant to Health Maintenance Results * (ABNORMAL) MICROALBUMIN/CREATININE RATIO (03/15/2021 10:50 AM EST) CREATININE, MG/DL, URINE 105.5 MG/DL [address] Comment:NO NORMAL VALUES EST ABLISHED FOR RANDOM SPECIMENS Microalbumin, Urine, Random 133.1(H) 0 - 16.7 mg/L [address] MICROALBUMIN/CRE ATININE RATIO 126.2(H) 1.3 - 30.0 mg [facility] [address] Comment:Testing performed at [place], [place] [address] 03/15/2021 10:5 0 AM EST 03/15/2021 11:00 AM EST us Luis Miguel Kaur MD BODY FLUIDS & STOOLS ORDERABLE S Final Result [address] [address] * (ABNORMAL) TSH W/FT4 REFLEX (03/15/2021 8:58 AM EST) TSH, Reflex FT4 7.180(H) 0.46 - 4.68 uIU/ML [address] Comment:Testing performed at [place], [place] [address] Blood 03/15/2021 8:58 AM EST 03/15/2021 9:00 AM EST Luis Miguel Kaur MD ENDOCRINOLOGY Final Result [address] [id number] * (ABNORMAL) HEMOGLOBIN A1C (03/15/2021 8:58 AM EST) HEMOGLOBIN A1C 11.7(H) 0 - 6 % [facility] - [address] - [place] Comment: NORMAL <5.7% PREDIABETES 5.7-6.4% DIABETES 6.5% OR HIGHER Estimated Average Glucose 289 mg/dL [facility] - [address] - [place] Blood 03/15/2021 8:58 AM EST 03/15/2021 9:00 AM EST Luis Miguel Kaur MD HEMATOLOGY ORDERABLES Final Re sult [facility] - [address] - [facility] [place] [address] [place] [address] * (ABNORMAL) LIPID PANEL W CALCULATED LDL (03/15/2021 8:58 AM EST) CHOLESTEROL 226(H) 107 - 217 MG/DL [address] TRIGLYCERIDE 174(H) 0 - 150 MG/DL [address] HDL CHOLESTEROL 48 33 - 75 MG/DL [address] LDL CHOLESTEROL, CALCULATED 143 MG/DL [address] VLDL Cholesterol, Calculated 35(H) 5.0 - 25 MG/DL [address] TCHOL/HDL RATIO, MANUAL ENTER 4.[address] Comment: RISK TOTAL/HDL RATIO MEN WOMEN 1/2 AVERAGE 3.43 3.27 AVERAGE 4.97 4.44 2X AVERAGE 9.55 7.05 3X AVERAGE 23.99 11.04 Testing performed at [place], [place] [address] Blood 03/15/2021 8:58 AM EST 03/15/2021 9:00 AM EST us Luis Miguel Kaur MD CHEMISTRY ORDERABLES Final Res ult [address] [address] * (ABNORMAL) COMPREHENSIVE METABOLIC PANEL (03/15/2021 8:58 AM EST) Glucose 222(H) 70 - 100 MG/DL [address] Comment: NORMAL <100 mg/dL PREDIABETES 101-126 mg/dL DIABETES 126 mg/dL or higher BUN 26(H) 7 - 20 MG/DL [address] CREATININE SERUM 1.20 0.7 - 1.2 MG/DL [address] SODIUM 139 137 - 145 MMOL/L [address] Potassium 4.5 3.5 - 5.1 MMOL/L [address] CHLORIDE 105 98 - 107 MMOL/L [address] Comment:Please note: Triglyc eride levels of 600mg/dL or higher may positively bias chloride results by approximately 2.1 mmol CALCIUM 9.6 8.4 - 10.2 MG/DL [address] PROTEIN, TOTAL 7.3 6.3 - 8.2 GM/DL [address] Albumin 3.9 3.5 - 5.0 G/dl [address] BILIRUBIN, TOTAL 0.4 0.2 - 1.3 MG/DL [address] AST 19 14 - 36 IU/L [address] ALKALINE PHOSPHATASE 113 38 - 126 IU/L [address] CARBON DIOXIDE (CO2) 24 22 - 30 MMOL/L [address] A/G Ratio 1.1(L) 1.3 - 2.[address] ALT 14 <35 IU/L [address] ESTIMATED GFR, NON AMER 49 ml/min/1. 73sq.m [address] ESTIMATED GFR, 59 ml/min/1. 73sq.m [address] GFR COMMENT Average GFR for 50-59 years old = 93. [address] Comment: Chronic Kidney disease, GFR = <60. Kidney failure, GFR = <15. The GFR estimate is not adjusted for extreme body surface area or acute process, nor has it been validated for women or ethnic groups other than and . Testing performed at [place], [place] [address] Blood 03/15/2021 8:58 AM EST 03/15/2021 9:00 AM EST us Luis Miguel Kaur MD CHEMISTRY ORDERABLES Final Res ult [address] [address] * HEPATITIS A, B, C (01/22/2018 4:29 PM EST) Hep A AB (IGG + IGM) Negative Negative [facility] Hep B Surf AG Negative Negative [facility] HEP B CORE AB,TOTAL(IGG+IGM) Negative Negative [facility] Hep B Surf AB Non Reactive [facility] Comment: (NOTE) Non Reactive: Inconsistent with immunity, less than 10 mIU/mL Reactive: Consistent with immunity, greater than 9.9 mIU/mL HEP C AB <0.1 0.0 - 0.9 s/co ratio [facility] Comment: (NOTE) Negative: < 0.8 Indeterminate: 0.8 - 0.9 Positive: > 0.9 The CDC recommends that a positive HCV antibody result be followed up with a HCV Nucleic Acid Amplification test ([id number]). PERFORMED AT [facility] 01/22/2018 4:29 PM EST 01/22/2018 4:33 PM EST Victor Manuel Agee Jr., DO IMMUNOLOGY ORDERABLES Final Result [facility] * DIABETIC EYE EXAM (OUTSIDE) (06/20/2017) [facility] Final Result * MAMMO SCREENING BILATERAL (04/04/2017 12:46 PM EST) Anatomical Region Laterality Modality breast Bilateral Mammography 04/04/2017 12:3 0 PM EST Impressions 04/04/2017 12:30 PM EST IMPRESSION: Benign findings. BI-RADS 2 - Benign, no evidence of malignancy. Normal interval followup is recommended in 12 months. OVERALL ASSESSMENT- BENIGN A letter of notification will be sent to the patient regarding the results. Narrative 04/04/2017 12:30 PM EST BILATERAL DIGITAL SCREENING MAMMOGRAM, CAD: REASON FOR EXAM: SCREENING. COMPARISON: None available. New Baseline. TECHNIQUE: Bilateral craniocaudal and mediolateral oblique projections were obtained with additional CAD evaluation. FINDINGS: BREAST COMPOSITION: Heterogeneous fibroglandular tissue density pattern is noted which can obscure small masses. No mass, malignant-type calcifications, architectural distortion, or other specific finding is seen, to suggest malignancy. There are bilateral benign-appearing calcifications seen. Focal areas of mild glandular asymmetry are present. Early vascular calcifications are noted. Self-Referred Mammography-Hardy Moreno MD BREAST IMAGING Final Result from Last 3 Months or Most Recently Relevant to Health Maintenance Insurance MEDICARE A AND B MEDICARE A AND B [facility] MEDICARE A AND B [facility] SELF INSURED EMPLOYER OR GENERIC OS Advance Directives For more information, please contact: [phone] (7:30 AM - 6PM [facility], Friday-Friday) * Full Code (Latest Code Status on File) Date Activated Date Inactivated Comments 10/09/2017 4:19 PM Care Teams Bacteriologist Fishery Relationship Specialty Start Date End Date Aamir Purcell DO PCP - General Family Medicine 03/06/17 Adilson Hernandez MD [address] [place] [address] Ophthalmology 07/18/17 Kartik Mejia MD [address] [place] [address] [place] [address] Pain Medicine 12/25/17 Tisha Arriaga MD [address] [place] [phone] Neurologist Neurology 07/18/17 Luis Miguel Kaur MD [address] [place] [address] [facility], Diabetes & Metabolism 03/06/17 Chris Zavala, OD [address] [place] [address] Optometry 03/15/20
--- OUTSIDE RECORDS SUMMARY | 2024-08-11 13:49 | XMS_ITS | Encounter Summary ---
Author Organization [facility] Address [address] [place] [address] Care Team Providers Care Coal Or Ore Controller Name Role Phone Aamri Purcell MD Primary Care Provider [phone] Encounter Details Date Type Department Care Team (Late st Contact Info) Description 10/30/2021 Lab Requisition [facility] [address] [place] [id number] Migue Cole MD [address] [address] Social History Tobacco Use Types Packs/Day Years [...] - 145 mmol/L 10/30/2021 9:42 AM EDT [facility] ([facility]) Potassium 4.3 3.5 - 5.1 mmol/L 10/30/2021 9:42 AM EDT [facility] ([facility]) Chloride 101 98 - 107 mmol/L 10/30/2021 9:42 AM EDT [facility] (BEAKER) CO2 28 21 - 31 mmol/L 10/30/2021 9:42 AM EDT [facility] ([facility]) BUN 36(H) 7 - 25 mg/dL 10/30/2021 9:42 AM EDT [facility] ([facility]) Creatinine 0.71 0.60 - 1.20 mg/dL 10/30/2021 9:42 AM EDT [facility] ([facility]) Glucose 74 70 - 100 mg/dL 10/30/2021 9:42 AM EDT [facility] ([facility]) Calcium 9.6 8.6 - 10.3 mg/dL 10/30/2021 9:42 AM EDT [facility] ([facility]) Anion Gap 10 <=30 mmol/L 10/30/2021 9:42 AM EDT [facility] ([facility]) eGFR 94.2 >60.0 mL/min/1. 73m*2 10/30/2021 9:42 AM EDT [facility] ([facility]) Comment:[facility] s estimated glomerular filtration rate (eGFR) will [...] BUN/Creatinine Ratio 50.70 10/18 9:42 AM EDT [facility] ([facility]) Blood Venous blood specimen / Unknown 10/30/2021 7:00 AM EDT 10/30/2021 3:45 AM EDT us Migue Cole MD LAB BLOOD ORDERABLES Final Result [facility] ([facility]) [address] [place], [place] [id number] documented in this encounter Visit Diagnoses Not on filedocumented in this encounter Care Teams [employer] Controller Relationship Specialty Start Date End Date Aamir Purcell MD [address] [place] [address] PCP - General 10/19/21 documented as of this encounter
== END 2024-08-11 13:45 | disposition home or self-care (01) ==
LOC: WC 13:44
PROVIDERS: PCP Family Medicine; Visit Provider Podiatrist Foot & Ankle Surgery
DX: E11.621 Type 2 diabetes mellitus with foot ulcer (principal); L97.512 Non-pressure chronic ulcer of other part of right foot with fat layer exposed; L97.422 Non-pressure chronic 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; L97.521 Non-pressure chronic ulcer of other part of left foot limited to breakdown of skin
CPT/HCPCS: G0463

== ENCOUNTER 2024-08-31 10:00 | Outpatient (OUT) | payer MEDICARE, OTHER, MEDICAID, SELFPAY ==
--- OUTSIDE RECORDS SUMMARY | 2005-04-04 10:35 | XMS_ITS | Continuity of Care Document ---
Author Name [facility] Organization [facility] Care Team Providers Care Senior Care Specialist Name Role Phone [facility] Unavailable Unavailable Problems Combined list of problems [...] MARTIN Comment: severe axonal/demy elinative [facility] Peripheral Neuropathy (ICD-9-CM 355.9) Active Condition [place] [...] to drug (finding) active 6 [facility] GLUCOCORTICOI DS Propensity to adverse reactions to drug (finding) active 5 [facility] NEOSPORIN Propensity to adverse reactions to drug (finding) active 6 [facility] Immunizations Combined list of available immunizations from the Department of Defense and Veterans Affairs facilities. Immunization Series Date Given Administered By Site Reaction Lot Number CVX Code Drug Guest Room Inspector Status Comments Source PNEUMOCOCCAL, UNSPECIFIED FORMULATION 2004 109 complet ed [facility] INFLUENZA, UNSPECIFIED FORMULATION 2003 88 complet ed [facility] Social History Combined list [...]
--- OUTSIDE RECORDS SUMMARY | 2024-06-09 09:45 | XMS_ITS ---
Author Organization [facility] Address [address] [place] [address] [place] [address] Care Team Providers Care Saloonkeeper Name Role Phone José Miguel Crouch;Jesse richey Primary Care Provider Un available Jose Field Unavailable [phone] REASON FOR VISIT L CALLUS only; not toenails Encounters Encounter Location Date Provider Diagnosis [address] [address] 06/09/2024 Jose Field Plan Of Treatment No Information Progress Notes * Claudia FERNANDEZOB:1965 ([age] yo F)Acc No.[id number]:06/09/2024 Patient: Cleo SAL Provider: Sallie Field DPM :1965 A ge:59 Y S ex:Female Date:06/09/2024 Address:[address] [place], [place] [id number] Pcp:Willa Mayen;kaiden Subjective: * Chief Complaints: * 1 . L CALLUS only; not toenails. * Medical History: Objective: * Vitals: Assessment: Plan: * Treatment: * Images: * Electronic signature of [place] in MARK Field on 09/01/2024 at 09:05 AM EDT Sign off status: Pending * Provider: Sallie Field DPM Date: 06/09/2024 Generated for Emanuel sanon/Amrik/eTfabiennesmitting on: 09/01/2024 09:05 AM EDT
--- OUTSIDE RECORDS SUMMARY | 2024-07-21 09:45 | XMS_ITS ---
Author Organization [facility] Address [address] [place] [address] [place] [address] Care Team Providers Care Pc Network Technician Name Role Phone José Miguel Crouch;Jesse richey Primary Care Provider Un available Jose Field Unavailable [phone] Encounters Encounter Location Date Provider Diagnosis [address] [address] 07/21/2024 Jose Field Plan Of Treatment No Information Progress Notes * Claudia FERNANDEZOB:1965 ([age] yo F)Acc No.[id number]:07/21/2024 Patient: Cleo SAL Provider: Sallie Field DPM :1965 A ge:59 Y S ex:Female Date:07/21/2024 Address:[address] [place], [place] [id number] Pcp:Willa Mayen;kaiden Subjective: * Chief Complaints: * * Medical History: Objective: * Vitals: Assessment: Plan: * Treatment: * Images: * Electronic signature of Jupiter in MARK Field on 09/01/2024 at 09:06 AM EDT Sign off status: Pending * Provider: Sallie Field DPM Date: 07/21/2024 Generated for Emanuel sanon/Amrik/Margo on: 09/01/2024 09:06 AM EDT
--- OUTSIDE RECORDS SUMMARY | 2024-08-27 10:30 | XMS_ITS | Encounter Summary ---
Author Organization [facility] Address [address] [place] [address] Care Team Providers Care Collision Technician Name Role Phone Aamir Purcell MD Primary Care Provider [phone] Reason for Referral * Consultation (Stat) - Pending Review Specialty Diagnoses / Procedures Referred By Jeramy coombs Referred To Contact Podiatry Diagnoses Traumatic ulcer of left foot, unspecified ulcer stage (HCC) Procedures NM OFFICE/OUTPATIENT [facility] 60 MINUTES Raomna Campuzano PA [address] [place] [address] Phone: tel: fax: Emmanuelle Chauhan DPM [address] [place] [address] Phone: tel: fax: Referral ID Status Reason Start Date Expiration Date Visits Requested Visits Authorized [id number] Pending Review Specialty Services Required 08/27/2024 02/23/2025 1 1 Reason for Visit * Reason Comments Eczema Encounter Details Date Type Department Care Team (Late st Contact Info) Description 08/27/2024 10:30 AM EDT Office Visit [facility] [address] [place] [address] Ramona Campuzano PA [address] [place] [address] Other atopic dermatitis (Primary Dx); Traumatic ulcer of left foot, unspecified ulcer stage (HCC); Impetigo Social History Tobacco Use Types Packs/Day Years Used Date Smoking Tobacco: Never Assessed Comments Unknown Sex and Gender Information Value Date Recorded Sex Assigned at Not on file Legal Sex Female 6:48 PM EDT Gender Identity Not on file Sexual Orientation Not on file documented as of this encounter Progress Notes * Ramona COY Campuzano - 08/27/2024 10:30 AM EDT Follow-Up: Diagnosis: Atopic dermatitis . Location: hands, feet Last visit: 1 year ago Status: flaring Symptoms: dryness/red/bleeding Current treatment: Fluocinonide ointment 0.05% bid-has not had in awhile, using lotion Tried/failed: TAC cream, Mupirocin. All pertinent medical history, medications, and allergies were reviewed. General Exam: alert, oriented to person, place, and time, normal affect, well appearing uses a walker Unaccompanied A focused exam completed based on patient reported problems, see below: Skin Exam 1. TRAUMATIC ULCER OF LEFT FOOT, UNSPECIFIED ULCER STAGE (HCC) Left Hallux Metatarsal Plantar Area Ulcer of plantar surface 1 x 0.5 cm Patient was unaware of ulcer as she does not have feeling in her feet. Referral to podiatry today. Culture completed and Start doxycycline 100 mg twice a day x 7 days. Ambulatory referral to Podiatry - Left Hallux Metatarsal Plantar Area doxycycline (Monodox) 100 MG capsule - Left Hallux Metatarsal Plantar Area Take 1 capsule, by mouth, bid x 7 days 2. OTHER ATOPIC DERMATITIS Left Lower Leg - Anterior, Right Lower Leg - Anterior Scaly erythematous plaques +/- dyspigmentation, lichenification, excoriations. Flaring today Discussed that atopic dermatitis is a chronic condition that can be controlled but not cured. Discontinue Fluocinonide. Start Triamcinolone cream 0.1% twice a day when flared, hold if smooth/asymptomatic. Encouraged daily moisturizing and gentle cleansers to prevent flares. Notify office if flaringdespite treatment. Related Medications triamcinolone (Kenalog) 0.1 % cream Apply (1g) to the affected areas (feet), up to twice a day when flared, do not use one the face, groin, or underarms, 30 day supply 3. IMPETIGO Left Hallux Metatarsal Plantar Area Erythematous vesicles and/or pustules that quickly transition into superficial erosions with a honey-colored crust. Culture today on ulcer. Specimen 1 - Aerobic culture Account Name: Marisa Jonas NPI: Ramona Campuzano [id number] Next Visit: prn for any new/changing lesions documented in this encounter Plan of Treatment Upcoming Encounters Date Type Department Care Team (Late st Contact Info) Description 09/27/2024 1:15 PM EDT Office Visit [facility] [address] [place] [phone] Adilson Johnson DO [address] [place] [address] Scheduled Orders Name Type Priority Associated Diagnoses Orde r Schedule Aerobic culture Microbiology Timed Impetigo Release Upon Ordering for 1 Occurrences starting 08/27/2024 Scheduled Referrals Name Type Priority Associated Diagnoses Orde r Schedule Ambulatory referral to Podiatry Outpatient Referral STAT Traumatic ulcer of left foot, unspecified ulcer stage (HCC) Expected: 08/27/2024 (Approximate), Expires: 02/27/2025 documented as of this encounter Visit Diagnoses Diagnosis Other atopic dermatitis- Primary Traumatic ulcer of left foot, unspecified ulcer stage (HCC) Impetigo documented in this encounter Care Teams Collision Technician Relationship Specialty Start Date End Date Aamir Purcell MD PCP - General Family Medicine 08/12/22 documented as of this encounter
--- OUTSIDE RECORDS SUMMARY | 2024-09-01 09:06 | XMS_ITS | Encounter Summary ---
Author Organization [facility] Address [address] [place] [address] Care Team Providers Care Local Flatbed Driver Name Role Phone Aamir Purcell MD Primary Care Provider [phone] Encounter Details Date Type Department Care Team (Late st Contact Info) Description 03/31/2023 Orders Only [facility] [address] [facility] [address] [place] [phone] A, Unknown Practice [address] [id number] Social History Tobacco Use Types Packs/Day Years [...] Visit [facility] [address] [place] [address] Adilson Johnson DO [address] [place] [address] documented as of this encounter Procedures Procedure Name Priority Date/Time Associated Diagnosis Comments SCANNED LABS Routine 03/29/2023 1:07 PM EST documented in this encounter Results * SCANNED LABS (03/29/2023 1:07 PM EST) us Unknown Practice A LAB CHG PERFORMABLES Final Re sult documented in this encounter Visit Diagnoses Not on filedocumented in this encounter Care Teams Local Flatbed Driver Relationship Specialty Start Date End Date Aamir Purcell MD PCP - General Family Medicine 08/12/22 documented as of this encounter
--- OUTSIDE RECORDS SUMMARY | 2024-09-01 09:06 | XMS_ITS | Patient Health Record ---
Author Organization [facility] Address [address] [place] [address] [place] [address] Care Team Providers Care Business Attorney Name Role Phone José Miguel Crouch;Jesse richey Primary Care Provider Un available JoanncedrickJose Unavailable [phone] Allergies Allergen (clinical drug ingredient) Drug/Non Drug Allergy documented on EMR Reaction Allergy Type Onset Date Status moxifloxacin Avelox Unknown Drug Allergy Acti ve moxifloxacin Moxifloxacin HCl Unknown Drug Allergy Active polyethylene glycol 3350 PEG 3350 Unknown Drug Allergy Active cephalexin Cephalexin Unknown Drug Allergy Activ e Reason For Referral No Information Medications Medication SIG (Take, Route, Frequency, Duration) Notes Start Date End Date Status Levothyroxine Sodium 100 MCG 1 tablet in the morning on an empty stomach Orally Once a day Active Cymbalta 60 MG 1 capsule Orally Onc e a day Active Carvedilol 12.5 MG 1 tablet with food O rally Twice a day Active Calcium Carbonate Antacid 1000 MG 1 tablet Orally Once a day Active tiZANidine HCl 4 MG 1 tablet at bedtime as needed Orally Once a day Active Omeprazole 40 MG 1 capsule 1/2 to 1 h our before morning meal Orally Once a day Active Meclizine HCl 25 MG 1 tablet as needed O rally every 12 hrs Active Trulicity 0.75 MG/0.5ML as directed Subcutaneous Active Brimonidine Tartrate 0.2 % 1 drop into a ffected eye Ophthalmic every 8 hrs Active Insulin Glargine-yfgn 100 UNIT/ML as directed Subcutaneous Act babar Aspirin 325 MG 1 tablet Orally Once a day Active traMADol HCl 50 MG 1 tablet as needed O rally Once a day Active Depakote ER 250 MG 1 tablet Orally twic e a day Active Social History Tobacco Use: Social History Observation Description Date Details (start date - stop date) Former Smoker NA - NA tobacco use Question Answer Notes Patient is a: former smoker quit Problems Problem Type SNOMED Code ICD Code Onset Dates Problem Status W/U Status Risk Notes Problem Type 2 diabetes mellitus with diabetic peripheral angiopathy without gangrene (E11.51) Active confirmed Problem Long-term current use of insulin (715189713) MCC (current) use of insulin (Z79.4) Active confirmed z79 Problem Absence of toe (521750017) 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) Active confirmed Vital Signs Blood pressure diastolic 70 mm Hg 08/05/2024 Height 65 in 08/05/2024 Blood pressure systolic 128 mm Hg 08/05/2024 Weight 155 lbs 08/05/2024 BMI 25.79 08/05/2024 Encounters Encounter Location Date Provider Diagnosis [facility] [address] [place] [address] 10/29/2023 Jose Field [facility] [address] [place] [address] 01/21/2024 Jose Field [facility] [address] [place] [address] 04/21/2024 Jose [facility] [address] [place] [address] 06/09/2024 [facility] [address] [place] [address] 08/05/2024 Jose Field MCC (current) use of insulin Z79.4 ; Type 2 diabetes mellitus with diabetic peripheral angiopathy without gangrene E11.51 and Acquired absence of other left toe(s) Z89.422 Assessments Encounter Date Diagnosis (ICD Code) Assessment Notes Treatment Notes Treatment Clinical Notes Section Notes 08/05/2024 Type 2 diabetes mellitus with diabetic peripheral angiopathy without gangrene (ICD-10 - E11.51) Cleo Georges 08/05/2024. 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 The patients old shoes a lateral crease along the lateral heel counter and is not provinding stability needed. The sole of the shoe also displays significant wear. The patient chose style of shoe in size10 medium. 08/05/2024 MCC (current) use of insulin (ICD-10 - Z79.4) 08/05/2024 Acquired absence of other left toe(s) (ICD-10 - Z89.422) Plan Of Treatment No Information Insurance Providers Payer Name Payer Address Payer Phone Subscriber Number Group Number Insured Name Patient Relationship to Insured Coverage Start Date Coverage End Date Medicare Part B [id number] Part [facility] [place] [address] [id number] Cleo Georges Self - patient is the insured [employer] [address] [place] [address] [id number] Cleo Georges Self - patient is the insured Medicaid [place] [employer] [address] [place] [address] [id number] Cloe Georges Self - patient is the insured Medical (General) History Medical History History ICD Code type II diabetes glaucoma idiopathic epilepsy anemia hypokalemia anxiety depression spinal stenosis hyperlipidemia hypothyroidism cardiac murmur sleep apnea polyneuropathy hypertension asthma GERD Surgical History Surgery Date(Month/Year) heart surgery neck surgery Hospitalization History Reason Date(Month/Year) see surgical hx
--- OUTSIDE RECORDS SUMMARY | 2024-09-01 09:06 | XMS_ITS | Clinical Summary ---
Author Organization [facility] Address [address] [place] [address] Care Team Providers Care Kayak Maker Name Role Phone Aamir Purcell DO Primary Care Provider [phone] Allergies Active Allergy Reactions Criticality Noted Date [...] 10/06/2020 10/07/2019, 07/29/2012 COVID-19 Vaccine (1 - 2023- season) 2023 Influenza Vaccine (#1) 2024 , 11/04/2013, 11/04/2013 Respiratory Syncytial Virus Immunization: Risk, 60-74 Risk, or 75+ (1 - 1-dose 75+ series) 2038 Medical Devices Implanted Type Area Mid Level Game Designer Device Identifier Shelf Expiration Date Model / Serial / Lot Stent-07/27/2012 Implanted:Qty: 1 on 07/27/2012 Stent Right: Eye [employer] [id number] / [id number] / [id number] Description:Non-clinical son ting has demonstrated that the iStent Trabecular Micro-Bypass Stent (Models [id number] and [id number]) is MR Conditional. A patient with this [...] above, the iStent Trabecular Micro-Bypass Stent (Models [id number] and [id number]) is not expected to produce a clinically significant temperature rise after 15 minutes of continuous scanning. In non-clinical testing, the image artifact caused by the device extends less than 15 mm from the device when imaged with a gradient echo pulse sequence and a 3.0 T MRI system Insurance MEDICARE PART A & [place] [address] [facility] Advance Directives For more information, please contact: [phone] Documents on File Type Date Recorded Patient Ore Feeder Expl anation Power of Roving Department Supervisor 05/28/2021 12:09 PM Power of Roving Department Supervisor 05/28/2021 12:01 PM * Full Code - Unverified (Latest Code Status on File) Date Activated Date Inactivated Comments 05/18/2021 10:06 PM 05/29/2021 7:56 PM Care Teams Kayak Maker Relationship Specialty Start Date End Date Aamir Purcell DO [address] [place] [address] PCP - General Family Medicine 03/28/17
--- OUTSIDE RECORDS SUMMARY | 2024-09-01 09:06 | XMS_ITS | Encounter Summary ---
Author Organization [facility] Address [address] [place] [address] Care Team Providers Care International Operations Manager Name Role Phone Aamir Purcell Primary Care Provider [phone] Hoang Gilliam DPM Unavailable [phone] SOMMER DO, W. Don Unavailable [phone] Encounter Details Date Type Department Care Team (Late st Contact Info) Description 04/02/2017 Abstract [facility] [address] 3rd [place] [address] Alaina Doan MA Social History [...] documented as of this encounter Care Teams International Operations Manager Relationship Specialty Start Date End Date Aamir Purcell DO [address] [place] [address] PCP - General Family Medicine 03/28/17 Hoang Gilliam DPM [address] [place] [address] Consulting Physician Podiatry 04/07/17 05/17/21 Reji Miramontes III, DO [address] [place] [address] Consulting Physician Vascular Surgery 04/07/17 05/17/21 documented as of this encounter
--- OUTSIDE RECORDS SUMMARY | 2024-09-01 09:06 | XMS_ITS | Encounter Summary ---
Author Organization [facility] Address [address] [place] [address] Care Team Providers Care Survey Research Associate Name Role Phone Aamir Purcell DO Primary Care Provider [phone] Hoang Gilliam DPM Unavailable [phone] SOMMER DO, W. Don Unavailable [phone] Reason for Referral * Evaluate and Treat (Routine) - Closed Specialty Diagnoses / Procedures Referred By Jeramy coombs Referred To Contact Cardiology Diagnoses 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 of tazl[place] arteries of left leg with ulceration of other part of foot (HCC) Hoang Gilliam DPM [address] [place] [address] Phone: tel: fax: [facility] [address] 3rd [place] [address] Phone: tel: fax: Referral ID Status Reason Start Date Expiration Date V isits Requested Visits Authorized [id number] Closed Specialty Services Required/Herminia ent's Best Interest 03/28/2017 03/28/2018 1 1 Encounter Details Date Type Department Care Team (Latest Contact Info) Description 03/28/2017 Transcribe Orders [facility] [address] 3rd [place] [address] Hoang Gilliam, MARK [address] [place] [address] PVD (peripheral vascular disease) (Primary Dx); 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); Atherosclerosis of t[place]lina arteries of left leg with ulceration of [...] Without Evidence Of Necrosis (Hcc) Atherosclerosis of [place] arteries of left leg with ulceration of other part of foot (HCC) 1 Occurrences starting 03/28/2017 until 03/28/2018 documented as of this encounter Visit Diagnoses Diagnosis PVD (peripheral vascular disease)- Primary Unspecified peripheral vascular disease 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 of t[place]lina arteries of left leg with ulceration of other part of foot (HCC) documented in this encounter Additional Health Concerns Infection Onset Date Last Indicated Resolved Time COVID-19 Suspected 05/18/2021 05/18/2021 2 7:53 PM EDT COVID-19 Suspected 05/29/2021 05/29/2021 2 12:26 PM EDT documented as of this encounter Care Teams Survey Research Associate Relationship Specialty Start Date End Date Aamir Purcell DO [address] [place] [address] PCP - General Family Medicine 03/28/17 Hoang Gilliam DPM [address] [place] [address] Consulting Physician Podiatry 04/07/17 05/17/21 Reji Miramontes III, DO [address] [place] [address] Consulting Physician Vascular Surgery 04/07/17 05/17/21 documented as of this encounter
--- OUTSIDE RECORDS SUMMARY | 2024-09-01 09:06 | XMS_ITS | Encounter Summary ---
Author Organization [facility] Address [address] [place] [address] Care Team Providers Care Hoisting Machine Operator Name Role Phone Aamir Purcell MD Primary Care Provider [phone] Encounter Details Date Type Department Care Team (Late st Contact Info) Description 12/05/2022 Clinisync Result Encounter [facility] External Department Unsolicited Maine Chávez, MEETING MANAGER [address] [facility] [address] [place] [address] Social History Tobacco Use Types Packs/Day Years [...] [facility] [address] [place] [address] Adilson Johnson, DO [address] [place] [address] documented as of this encounter Procedures Procedure [...] by: SINDY Technologist: TAMMIE us Maine Chávez MEETING MANAGER [facility] Final Result documented in this encounter Visit Diagnoses Not on filedocumented in this encounter Care Teams Hoisting Machine Operator Relationship Specialty Start Date End Date Aamir Purcell MD PCP - General Family Medicine 08/12/22 documented as of this encounter
--- OUTSIDE RECORDS SUMMARY | 2024-09-01 09:06 | XMS_ITS | Encounter Summary ---
Author Organization [facility] Address [address] [place] [address] Care Team Providers Care Felt Cementer Name Role Phone Aamir Purcell MD Primary Care Provider Encounter Details Date Type Department Care Team (Late st Contact Info) Description 08/16/2024 Abstract [facility] [address] [facility] [address] [place] [phone] Aamir Purcell MD [address] [place] [address] Social History Tobacco Use Types Packs/Day Years [...] [facility] [address] [place] [address] Adilson Johnson DO [address] [place] [address] documented as of this encounter Visit Diagnoses Not on filedocumented in this encounter Care Teams Felt Cementer Relationship Specialty Start Date End Date Aamir Purcell MD PCP - General Family Medicine 08/12/22 documented as of this encounter
--- OUTSIDE RECORDS SUMMARY | 2024-09-01 09:06 | XMS_ITS | Encounter Summary ---
Author Organization [facility] Address [address] [place] [address] Care Team Providers Care Artificial Candy Maker Name Role Phone Aamir Purcell MD Primary Care Provider [phone] Encounter Details Date Type Department Care Team (Late st Contact Info) Description 12/13/2022 Clinisync Result Encounter [facility] External Department Unsolicited Maine Chávez, LUMP ROLLER [address] [facility] [address] [place] [address] Social History Tobacco Use Types Packs/Day Years [...] [facility] [address] [place] [phone] Adilson Johnson, DO [address] [place] [address] documented as of this encounter Procedures Procedure [...] SINDY Technologist: ANGÉLICA Procedure Note Radiology, Radiologist, MD - 12/14/2022 Exam Date/Time: 12/13/2022 14:28 EDT [...] by: SINDY Technologist: ANGÉLICA us Maine Chávez LUMP ROLLER [facility] Final Result documented in this encounter Visit Diagnoses Not on filedocumented in this encounter Care Teams Artificial Candy Maker Relationship Specialty Start Date End Date Aamir Purcell MD PCP - General Family Medicine 08/12/22 documented as of this encounter
--- OUTSIDE RECORDS SUMMARY | 2024-09-01 09:06 | XMS_ITS | Patient Health Record ---
Author Organization [facility] [place] Address [address] [place] [address] Care Team Providers Care Interactive Media Marketing Specialist Name Role Phone Aamir Purcell DO Primary Care Provider Unavaila ble Reason For Referral No Information Problems Problem Type SNOMED Code ICD Code Onset Dates Problem Status W/U Status Risk Notes Problem 692368565 Type 2 diabetes mellitus without complications (E11.9) Active confirmed Problem Foot ulcer due to type 2 diabetes mellitus (805947171196 0) Type 2 diabetes mellitus with foot ulcer (E11.621) Active confirmed Problem Chronic ulcer of foot (391120994) 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) Active confirmed Problem 152981524 half-way (curre nt) use of insulin (Z79.4) Active confirmed Problem 91576165 Encephalopathy (G93.40) Active confirmed Problem 67041479 Essential hypertension (I10) Active confirmed Problem MR (mitral regurgitation) (I34.0) Active confirmed Problem 270924027 Acquired hypothyroidism (E03.9) Active confirmed Problem 944375007 Thrombocytopenia (D69.6) Active confirmed Problem 948304568 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 Problem 270173067 Agitation (R45.1) Active confirmed Problem 838152333 Type 2 diabetes mellitus without complication, unspecified 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 (E11.9) Active confirmed Problem 399246362 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
--- OUTSIDE RECORDS SUMMARY | 2024-09-01 09:06 | XMS_ITS | Encounter Summary ---
Author Organization [facility] Address [address] [place] [address] Care Team Providers Care Tube Winder Hand Name Role Phone Aamir Purcell MD Primary Care Provider Encounter Details Date Type Department Care Team (Late Contact Info) Description 08/27/2024 Bamboo flowsheet [facility] [address] [place] [address] Ramona Campuzano PA [address] [place] [address] Social History Tobacco Use Types Packs/Day Years [...] [facility] [address] [place] [phone] Adilson Johnson DO [address] [place] [address] documented as of this encounter Visit Diagnoses Not on filedocumented in this encounter Care Teams Tube Winder Hand Relationship Specialty Start Date End Date Aamir Purcell MD PCP - General Family Medicine 08/12/22 documented as of this encounter
--- OUTSIDE RECORDS SUMMARY | 2024-09-01 09:06 | XMS_ITS | Encounter Summary ---
Author Organization [facility] Address [address] [place] [address] Care Team Providers Care Die Maker Electronic Name Role Phone Aamir Purcell MD Primary Care Provider [phone] Encounter Details Date Type Department Care Team (Late st Contact Info) Description 08/09/2024 Abstract [facility] CI FM 112 [facility] 110 [place] [address] Unallocated, Noms MD Garrick [address] [place] [address] Social History Tobacco Use Types Packs/Day Years [...] NB OPHT [address] [place] [phone] Adilson Johnson DO [address] [place] [address] documented as of this encounter Visit Diagnoses Not on filedocumented in this encounter Care Teams Die Maker Electronic Relationship Specialty Start Date End Date Aamir Purcell MD PCP - General Family Medicine 08/12/22 documented as of this encounter
--- OUTSIDE RECORDS SUMMARY | 2024-09-01 09:06 | XMS_ITS | Encounter Summary ---
Author Organization [facility] Address [address] [place] [address] Care Team Providers Care Junior High Math Teacher Name Role Phone Aamir Purcell MD Primary Care Provider [phone] Encounter Details Date Type Department Care Team (Latest Contact Info) Description 08/27/2024 Travel Social History Tobacco Use Types Packs/Day Years [...] 09/27/2024 1:15 PM EDT Office Visit [facility] OPHT [address] [place] [phone] Adilson Johnson, DO [address] [place] [address] documented as of this encounter Visit Diagnoses Not on filedocumented in this encounter Care Teams Junior High Math Teacher Relationship Specialty Start Date End Date Aamir Purcell MD PCP - General Family Medicine 08/12/22 documented as of this encounter
--- OUTSIDE RECORDS SUMMARY | 2024-09-01 09:06 | XMS_ITS | Encounter Summary ---
Author Organization [facility] Address [address] [place] [address] Care Team Providers Care Surface Grinder Name Role Phone Aamir Purcell MD Primary Care Provider Encounter Details Date Type Department Care Team (Late st Contact Info) Description 08/24/2024 Abstract [facility] CI FM 112 [facility] 110 [place] [address] Unallocated, Noms MD Garrick [address] [place] [address] Social History Tobacco Use Types Packs/Day Years [...] NB OPHT [address] [place] [phone] Adilson Johnson DO [address] [place] [address] documented as of this encounter Visit Diagnoses Not on filedocumented in this encounter Care Teams Surface Grinder Relationship Specialty Start Date End Date Aamir Purcell MD PCP - General Family Medicine 08/12/22 documented as of this encounter
--- OUTSIDE RECORDS SUMMARY | 2024-09-01 09:06 | XMS_ITS | Clinical Summary ---
Author Organization [facility] Address [address] [place], [place] [address] Care Team Providers Care Satellite Tv Technician Name Role Phone Basilia Tobias Lars PALACIOS [...] Diabetes Screening 03/23/2018 03/23/2015, 03/23/2015 Covid-19 Vaccine (1 - 2023-25 season) 2023 Influenza Vaccine (#1) 2024 RSV Vaccine (1 - 1-dose 75+ [...] - 5.6 % 03/23/2015 10:11 PM EST [facility] Comment: [place] Diabetes [employer] guidelines indicate that patients with HgbA1c in the range 5.7-6.4% are at increased risk for development of diabetes, and intervention by lifestyle modification may be beneficial. HgbA1c greater or equal to 6.5% is considered diagnostic of diabetes. Estimated Average Glucose >240 mg/dL 03/23/2015 10:11 PM EST [facility] Comment: eAG: (Estimated average glucose) is a calculated value from HgbA1c and is high school admissions representative of the average blood glucose level in the last 2-3 month period. Blood specimen (specimen) WHOLE BLOOD SPECIMEN / Unknown 03/23/2015 2:21 PM EST 03/23/2015 2:26 PM EST [facility] Final Result [facility] [address] [place] [address] from Last 3 Months or Most Recently Relevant to Health Maintenance Insurance MEDICARE Care Teams Satellite Tv Technician Relationship Specialty Start Date End Date Tobias Cui DO PCP - General Family Medicine 02/13/15
--- OUTSIDE RECORDS SUMMARY | 2024-09-01 09:06 | XMS_ITS | Encounter Summary ---
Author Organization [facility] Address [address] [place] [address] Care Team Providers Care Transport Nurse Name Role Phone Aamir Purcell MD Primary Care Provider [phone] Encounter Details Date Type Department Care Team (Late st Contact Info) Description 11/25/2022 Orders Only [facility] CI FM 112 [facility] [address] [place] [address] A, Unknown Practice [address] [phone] Social History Tobacco Use Types Packs/Day Years [...] NB OPHT [address] [place] [address] Adilson Johnson DO [address] [place] [address] documented as of this encounter Procedures Procedure Name Priority Date/Time Associated Diagnosis Comments SCANNED LABS Routine 11/23/2022 9:24 AM EDT documented in this encounter Results * SCANNED LABS (11/23/2022 9:24 AM EDT) us Unknown Practice A LAB CHG PERFORMABLES Final Re sult documented in this encounter Visit Diagnoses Not on filedocumented in this encounter Care Teams Transport Nurse Relationship Specialty Start Date End Date Aamir Purcell MD PCP - General Family Medicine 08/12/22 documented as of this encounter
--- OUTSIDE RECORDS SUMMARY | 2024-09-01 09:07 | XMS_ITS | Encounter Summary ---
Author Organization [facility] Address [address] [place] [address] Care Team Providers Care Retail Advertising Executive Name Role Phone Aamir Purcell MD Primary Care Provider Encounter Details Date Type Department Care Team (Late st Contact Info) Description 03/11/2024 Abstract [facility] CI 112 [facility] 110 [place] [address] Unallocated, Noms MD Garrick [address] [place] [address] Social History Tobacco Use Types Packs/Day Years [...] NB OPHT [address] [place] [phone] Adilson Johnson DO [address] [place] [address] documented as of this encounter Visit Diagnoses Not on filedocumented in this encounter Care Teams Retail Advertising Executive Relationship Specialty Start Date End Date Aamir Purcell MD PCP - General Family Medicine 08/12/22 documented as of this encounter
--- OUTSIDE RECORDS SUMMARY | 2024-09-01 09:07 | XMS_ITS | Encounter Summary ---
Author Organization [facility] Address [address] [place] [address] Care Team Providers Care Speed Belt Sander Name Role Phone Aamir Purcell MD Primary Care Provider [phone] Encounter Details Date Type Department Care Team (Late st Contact Info) Description 04/29/2024 Abstract [facility] FM 112 [facility] [address] [place] [address] Unallocated, Noms MD Garrick [address] [place] [address] Social History Tobacco Use Types Packs/Day Years [...] NB OPHT [address] [place] [phone] Adilson Johnson DO [address] [place] [address] documented as of this encounter Visit Diagnoses Not on filedocumented in this encounter Care Teams Speed Belt Sander Relationship Specialty Start Date End Date Aamir Purcell MD PCP - General Family Medicine 08/12/22 documented as of this encounter
--- OUTSIDE RECORDS SUMMARY | 2024-09-01 09:07 | XMS_ITS | Encounter Summary ---
Author Organization [facility] Address [address] [place] [address] Care Team Providers Care Hospital Orderly Name Role Phone Aamir Purcell MD Primary Care Provider Encounter Details Date Type Department Care Team (Late st Contact Info) Description 05/10/2024 Abstract [facility] FM 112 [facility] 110 [place] [address] Unallocated, Noms MD Garrick [address] [place] [address] Social History Tobacco Use Types Packs/Day Years [...] NB OPHT [address] [place] [phone] Adilson Johnson DO [address] [place] [address] documented as of this encounter Visit Diagnoses Not on filedocumented in this encounter Care Teams Hospital Orderly Relationship Specialty Start Date End Date Aamir Purcell MD PCP - General Family Medicine 08/12/22 documented as of this encounter
--- OUTSIDE RECORDS SUMMARY | 2024-09-01 09:07 | XMS_ITS | Encounter Summary ---
Author Organization [facility] Address [address] [place] [address] Care Team Providers Care Spinner Concrete Pipe Name Role Phone Aamir Purcell MD Primary Care Provider Encounter Details Date Type Department Care Team (Late st Contact Info) Description 06/28/2024 Abstract [facility] FM 112 [facility] [address] [place] [address] Unallocated, Noms MD Garrick [address] [place] [address] Social History Tobacco Use Types Packs/Day Years [...] NB OPHT [address] [place] [phone] Adilson Johnson DO [address] [place] [address] documented as of this encounter Visit Diagnoses Not on filedocumented in this encounter Care Teams Spinner Concrete Pipe Relationship Specialty Start Date End Date Aamir Purcell MD PCP - General Family Medicine 08/12/22 documented as of this encounter
--- OUTSIDE RECORDS SUMMARY | 2024-09-01 09:07 | XMS_ITS | Encounter Summary ---
Author Organization [facility] Address [address] [place] [address] Care Team Providers Care Parts Sales Counterperson Name Role Phone Aamir Purcell MD Primary Care Provider Encounter Details Date Type Department Care Team (Late st Contact Info) Description 04/19/2024 Abstract [facility] BH 112 [facility] [address] [place] [address] Unallocated, Noms MD Garrick [address] [place], [place] [id number] Social History Tobacco Use Types Packs/Day Years [...] NB OPHT [address] [place] [phone] Adilson Johnson DO [address] [place] [address] documented as of this encounter Visit Diagnoses Not on filedocumented in this encounter Care Teams Parts Sales Counterperson Relationship Specialty Start Date End Date Aamir Purcell MD PCP - General Family Medicine 08/12/22 documented as of this encounter
--- OUTSIDE RECORDS SUMMARY | 2024-09-01 09:07 | XMS_ITS | Clinical Summary ---
Author Organization [facility] Address [address] [place] [address] Care Team Providers Care Golf Course Starter Name Role Phone Aamir Purcell MD Primary Care Provider [phone] Allergies Active Allergy Reactions Criticality Noted Date Comments Cephalexin Hives,Itching,Unknow n,Rash,Swelling High 12/02/2011 burning Moxifloxacin Itching,Unknown,Rash ,Swelling High 12/02/2011 Abdominal pain Peg 9713-Dne-Saxvg-Nacl-Mello ulf High 10/28/2016 Tapentadol Unknown High 02/04/2014 [...] times a day by oral route. Active brimonidine (AlphaGAN P) 0.2 % ophthalmic solution 5 Active doxycycline (Vibramycin) 100 MG capsule 5 Active glipiZIDE (Glucotrol) 10 MG tablet 1 (one) time each day at the same time Active HYDROcodone-felicita taminophen (Ames) 5-325 MG tablet Take 1 tablet by mouth every 4 (four) hours if needed Active meclizine (Antivert) 25 MG tablet 5 Active traMADol (Ultram) 50 MG tablet 4 Active triamcinolone (Kenalog) 0.1 % creamIndication s:Other atopic dermatitis Apply (1g) to the affected areas (feet), up to twice a day when flared, do not use one the face, groin, or underarms, 30 day supply 80 g 11 5 Active doxycycline (Monodox) 100 MG capsuleIndicati ons:Traumatic ulcer of left foot, unspecified ulcer stage (HCC) Take 1 capsule, by mouth, bid x 7 days 14 capsule 5 Active fluocinonide (Lidex) 0.05 % ointmentIndicat ions:Other atopic dermatitis Apply topically 2 (two) times a day as needed for rash 180 g 4 025 Active Problems Problem Noted Date Diagnosed Date Primary open angle glaucoma (POAG) of both eyes, moderate stage 06/28/2024 Left posterior capsular opacification 06/28/2024 Mild nonproliferative diabet ic retinopathy of both eyes without macular edema associated with type 2 diabetes mellitus 06/28/2024 Dry eyes 06/28/2024 Encounters Date Type Department Care Team Description 08/27/2024 10:30 AM EDT Office Visit [facility] [address] [place] [address] Ramona Campuzano PA Other atopic dermatitis (Primary Dx); Traumatic ulcer of left foot, unspecified ulcer stage (HCC); Impetigo 08/27/2024 Bamboo flowsheet [facility] [address] [place] [address] Ramona Campuzano PA 08/27/2024 Travel 08/24/2024 Abstract [facility] CI FM 112 [facility] 110 [place] [address] UnallocatedKatja MD 08/16/2024 Abstract [facility] FM 112 [facility] 110 [place] [address] Aamir Purcell MD 08/10/2024 Clinisync Result Encounter NOMS External Department Unsolicited Provider, Generic External Data 08/10/2024 Clinisync Result Encounter NOMS External Department Unsolicited Provider, Generic External Data 08/09/2024 Abstract [facility] CI 112 [facility] [address] [place] [address] UnallocatedKatja MD 06/28/2024 2:15 PM EDT Consult [facility] OPHT [address] [place] [address] Adilson Johnson, Primary open angle glaucoma (POAG) of both eyes, moderate stage (Primary Dx); 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 mellitus (HCC); Left posterior capsular opacification; Dry eyes 06/28/2024 Travel 06/28/2024 Abstract [facility] FM 112 [facility] 110 [place] [address] UnalbryancatedKatja MD 06/08/2024 Abstract [facility] FM 112 [facility] [address] [place] [address] UnallocatKatja chiang MD from Last 3 Months Social History [...] NB OPHT [address] [place] [address] Adilson Johnson, DO [address] [place] [address] Procedures Procedure Name Priority Date/Time [...] PM EDT Narrative 08/10/2024 10:07 PM EDT [address] [address] Cardiology Report Signed Patient: CLEO FERNANDEZ MR#: [id number] : 1965 Acct:[id number] Age/Sex: 59 / F ADM Date: 08/10/24 Loc: CARD Attending Dr: Kailee CESPEDES Ordering Physician: Kailee Lopez Date of Service: 08/10/24 Procedure(s): CA segmental UE or LE SAMANTHA Accession Number(s): [id number] cc: MAHIN BERNAL [facility] Test Date: 2024-08-10 Pat Name: CLEO FERNANDEZ Department: Room: - Gender: Female Treating And Pumping Supervisor: : 1965 Requested By: Kailee Lopez Order Number: [id number] Reading MD: FELIPA ALANIS M.D. Interpretive Statements [...] ALANIS Signed By: 08/10/24220608/10/242206 DD/ 1548 TD/TT: University Counselor: Procedure Note Radiology, Radiologist, MD - 08/10/2024 [place] [address] Cardiology Report Signed Patient: CLEO FERNANDEZ LMR#: [id number] : 1965Acct:[id number] Age/Sex: 59 / FADM Date: 08/10/24 Loc: CARD Attending Dr: Kailee CESPEDES Ordering Physician: Kailee Lopez Date of Service: 08/10/24 Procedure(s): CA segmental UE or LE SAMANTHA Accession Number(s): [id number] cc: MAHIN BERNAL [facility] Test Date: 2024-08-10 Pat Name: CLEO FERNANDEZ Department: Room: - Gender: Female Treating And Pumping Supervisor: : 1965 Requested By: Kailee Lopez Order Number: [id number] Zack MD: FELIPA ALANIS M.D. Interpretive Statements Summary [...] FELIPA ALANIS Signed By:08/10/24220608/10/242206 DD/ 1548 TD/TT: University Counselor: us Generic External Data Provider IMG XR PROCEDURES Final Result * XR FOOT SAMANTHA MIN 3 VIEWS (08/10/2024 12:04 PM EDT) Anatomical Region Laterality Modality Other 08/10/2024 12:0 4 PM EDT Narrative 08/10/2024 12:07 [place] [address] XRay Report Signed Patient: CLEO FERNANDEZ MR#: [id number] : 1965 Acct:[id number] Age/Sex: 59 / F ADM Date: 08/10/24 Loc: CARD Attending Dr: Kailee CESPEDES Ordering Physician: Kailee Lopez Date of Service: 08/10/24 Procedure(s): XR foot SAMANTHA min 3V Accession Number(s): [id number] cc: MAHIN BERNAL ; Kailee Lopez [address] [address] Patient Name: CLEO FERNANDEZ MRN: [id number] date: 1965 Sex: F Assigned Patient Location: CARD Current Patient Location: CARD Accession/Order Number: [id number] Exam Date: 08/10/2024 11:59 Report Date: 08/10/2024 [...] Crews M.D. 08/10/2024 12:04 PM Dictation Location: [place] [address] Electronically authenticated by: [id number] Y Date: 08/10/2024 12:04 Dictated By: Misa Crews M.D. Signed By: 08/10/24 1207 DD/ 1204 TD/TT: University Counselor: Procedure Note Radiology, Radiologist, - 08/10/[address] [address] XRay Report Signed Patient: CLEO FERNANDEZ LMR#: [id number] : 1965Acct:[id number] Age/Sex: 59 / FADM Date: 08/10/24 Loc: CARD Attending Dr: Kailee CESPEDES Ordering Physician: Kailee Lopez Date of Service: 08/10/24 Procedure(s): XR foot SAMANTHA min 3V Accession Number(s): [id number] cc: MAHIN BERNAL ; Kailee Lopez The [address] [address] Patient Name: CLEO FERNANDEZ MRN: [id number] date: 1965 Sex: F Assigned Patient Location: CARD Current Patient Location: CARD Accession/Order Number: [id number] Exam Date: 08/10/2024 11:59 Report Date: 08/10/2024 [...] Crews M.D. 08/10/2024 12:04 PM Dictation Location: [place] [address] Electronically authenticated by: [id number] Y Date: 2:04 Dictated By: Misa Crews M.D. Signed By:08/10/24 1207 DD/ 1204 TD/TT: University Counselor: us Generic External Data Provider [facility] Final Result * OCT, Optic Nerve [...] Final from Last 3 Months Insurance MEDICARE [facility] [place]ICAID [place] Care Teams Golf Course Starter Relationship Specialty Start Date End Date Aamir Purcell MD PCP - General Family Medicine 08/12/22
--- OUTSIDE RECORDS SUMMARY | 2024-09-01 09:07 | XMS_ITS | Encounter Summary ---
Author Organization [facility] Address [address] [place] [address] Care Team Providers Care Drying Can Worker Name Role Phone Aamir Purcell MD Primary Care Provider Encounter Details Date Type Department Care Team (Late st Contact Info) Description 04/09/2024 Abstract [facility] FM 112 [facility] [address] [place] [address] Unallocated, Noms MD Garrick [address] [place] [address] Social History Tobacco Use Types Packs/Day Years [...] NB OPHT [address] [place] [phone] Adilson Johnson DO [address] [place] [address] documented as of this encounter Visit Diagnoses Not on filedocumented in this encounter Care Teams Drying Can Worker Relationship Specialty Start Date End Date Aamir Purcell MD PCP - General Family Medicine 08/12/22 documented as of this encounter
--- OUTSIDE RECORDS SUMMARY | 2024-09-01 09:07 | XMS_ITS | Encounter Summary ---
Author Organization [facility] Address [address] [place] [address] Care Team Providers Care Leather Production Machine Operator Name Role Phone Aamir Purcell MD Primary Care Provider Encounter Details Date Type Department Care Team (Late st Contact Info) Description 06/08/2024 Abstract [facility] FM 112 [facility] [address] [place] [address] Unallocated, Noms MD Garrick [address] [place] [address] Social History Tobacco Use Types Packs/Day Years [...] NB OPHT [address] [place] [phone] Adilson Johnson DO [address] [place] [address] documented as of this encounter Visit Diagnoses Not on filedocumented in this encounter Care Teams Leather Production Machine Operator Relationship Specialty Start Date End Date Aamir Purcell MD PCP - General Family Medicine 08/12/22 documented as of this encounter
--- OUTSIDE RECORDS SUMMARY | 2024-09-01 09:07 | XMS_ITS | Clinical Summary ---
Author Organization [facility] Address [address] [place] [address] Phone Care Team Providers Care Etcher Photoengraving Name Role Phone Physician, Pcp Unknown Primary [...] History Medical History Date Comments Diabetes mellitus (CMS/[facility] V24, [facility] V28) Social History Tobacco Use Types Packs/Day [...] Last Done Comments Breast Cancer Screening 1965 Diabetes: Annual Foot Exam 1973 DTaP,Tdap,and Td Vaccines (1 - Tdap) 1982 Cervical Cancer Screening: Pap Smear 02/07/1984 Zoster Vaccines (2 of 3) 12/30/2013 11/04/2013 Pneumococcal Vaccine: 50+ Years (2 [...] years 1-dose series) 2023 COVID-19 Vaccine ( - season) 2023 Influenza Vaccine (#1) 2024 0, 11/04/2013, 11/04/2013 Cholesterol Screening (Lipid Panel) 03/15/2026 [...] LAB CHEMISTRY METHOD 04/06/2021 5:31 AM EST [facility] Potassium 4.2 3.6 - 5.1 mmol/L LAB CHEMISTRY METHOD 04/06/2021 5:31 AM EST [facility] Chloride 106 98 - 107 mmol/L LAB CHEMISTRY METHOD 04/06/2021 5:31 AM EST [facility] CO2 21(L) 22 - 32 mmol/L LAB CHEMISTRY METHOD 04/06/2021 5:31 AM EST [facility] Anion Gap 9 6 - 18 LAB CHEMISTRY METHOD 04/06/2021 5:31 AM [facility] Glucose 192(H) 70 - 99 mg/dL LAB CHEMISTRY METHOD 04/06/2021 5:31 AM [facility] BUN 22(H) 8 - 20 mg/dL LAB CHEMISTRY METHOD 04/06/2021 5:31 AM [facility] Creatinine 1.06 0.60 - 1.30 mg/dL LAB CHEMISTRY METHOD 04/06/2021 5:31 AM [facility] eGFR 58 mL/min/1. 73m2 LAB CHEMISTRY METHOD 04/06/2021 5:31 AM [facility] BUN/Creatinine Ratio 20.8(H) 12.0 - 20.0 LAB CHEMISTRY METHOD 04/06/2021 5:31 AM [facility] Calcium 9.0 8.9 - 10.3 mg/dL LAB CHEMISTRY METHOD 04/06/2021 5:31 AM [facility] AST (SGOT) 14(L) 15 - 41 unit/L LAB CHEMISTRY METHOD 04/06/2021 5:31 AM [facility] ALT (SGPT) 11 7 - 52 unit/L LAB CHEMISTRY METHOD 04/06/2021 5:31 AM [facility] Alkaline Phosphatase 88 32 - 91 unit/L LAB CHEMISTRY METHOD 04/06/2021 5:31 AM [facility] Total Protein 6.3 6.1 - 7.9 g/dL LAB CHEMISTRY METHOD 04/06/2021 5:31 AM [facility] Albumin 3.4(L) 3.5 - 4.8 g/dL LAB CHEMISTRY METHOD 04/06/2021 5:31 AM [facility] Total Bilirubin 0.4 0.3 - 1.2 mg/dL LAB CHEMISTRY METHOD 04/06/2021 5:31 AM EST [facility] Blood Venous blood specimen / Unknown Venipuncture / Unknown 04/06/2021 4:22 AM EST 04/06/2021 5:03 AM EST Sin Carlson MD LAB BLOOD ORDERABLES Final Resul t [facility] [address] [place] [address] * (ABNORMAL) Hemoglobin A1c (04/06/2021 12:42 AM EST) Hemoglobin A1C 11.8(H) <=5.6 % LAB CHEMISTRY METHOD 04/06/2021 12:31 PM EST [facility] Comment: HbA1c values of 5.7-6.4 percent indicate an increased risk for developing diabetes mellitus. HbA1c values greater than or equal to 6.5 percent are diagnostic of diabetes mellitus. For diagnosis of diabetes in individuals without unequivocal hyperglycemia, results should be confirmed by repeat testing. Mean Bld Glu Estim. 292 mg/dL LAB CHEMISTRY METHOD 04/06/2021 12:31 PM EST [facility] Blood Venous blood specimen / Unknown Venipuncture / Unknown 04/06/2021 12:42 AM EST 04/06/2021 12:50 AM EST Sin Carlson MD LAB BLOOD ORDERABLES Final Resul t [facility] [address] [place], [place] [id number] from Last 3 Months or Most Recently Relevant to Health Maintenance Insurance MEDICARE [facility] Advance Directives * Full Code (Latest [...] currently active code status orders. Care Teams Etcher Photoengraving Relationship Specialty Start Date End Date Physician, Pcp Unknown PCP - General 04/05/21
--- OUTSIDE RECORDS SUMMARY | 2024-09-01 09:07 | XMS_ITS | Encounter Summary ---
Author Organization [facility] Address [address] [place] [address] Care Team Providers Care Tripe Finisher Name Role Phone Aamir Purcell MD Primary Care Provider Encounter Details Date Type Department Care Team (Late st Contact Info) Description 05/03/2024 Abstract [facility] 112 [facility] 110 [place] [address] Unallocated, Noms MD Garrick [address] [place] [address] Social History Tobacco Use Types Packs/Day Years [...] NB OPHT [address] [place] [phone] Adilson Johnson DO [address] [place] [address] documented as of this encounter Visit Diagnoses Not on filedocumented in this encounter Care Teams Tripe Finisher Relationship Specialty Start Date End Date Aamir Purcell MD PCP - General Family Medicine 08/12/22 documented as of this encounter
--- OUTSIDE RECORDS SUMMARY | 2024-09-01 09:07 | XMS_ITS | Encounter Summary ---
Author Organization [facility] Address [address] [place] [address] Care Team Providers Care Costume Draper Name Role Phone Aamir Purcell MD Primary Care Provider Encounter Details Date Type Department Care Team (Late st Contact Info) Description 04/19/2024 Abstract [facility] BH 112 [facility] [address] [place] [address] Unallocated, Noms MD Garrick [address] [place], [place] [id number] Social History Tobacco Use Types Packs/Day Years [...] NB OPHT [address] [place] [phone] Adilson Johnson DO [address] [place] [address] documented as of this encounter Visit Diagnoses Not on filedocumented in this encounter Care Teams Costume Draper Relationship Specialty Start Date End Date Aamir Purcell MD PCP - General Family Medicine 08/12/22 documented as of this encounter
--- OUTSIDE RECORDS SUMMARY | 2024-09-01 09:07 | XMS_ITS | Encounter Summary ---
Author Organization [facility] Address [address] [place] [address] Care Team Providers Care Senior Technical Specialist Name Role Phone Aamir Purcell MD Primary Care Provider [phone] Encounter Details Date Type Department Care Team (Late st Contact Info) Description 05/05/2024 Abstract [facility] 112 [facility] 110 [place] [address] Unallocated, Noms MD Garrick [address] [place] [address] Social History Tobacco Use Types Packs/Day Years [...] NB OPHT [address] [place] [phone] Adilson Johnson DO [address] [place] [address] documented as of this encounter Visit Diagnoses Not on filedocumented in this encounter Care Teams Senior Technical Specialist Relationship Specialty Start Date End Date Aamir Purcell MD PCP - General Family Medicine 08/12/22 documented as of this encounter
== END 2024-08-31 10:01 | disposition home or self-care (01) ==
LOC: WC 09-01 09:02
PROVIDERS: PCP Family Medicine; Visit Provider Physician Assistant
DX: E11.621 Type 2 diabetes mellitus with foot ulcer (principal); L97.512 Non-pressure chronic ulcer of other part of right foot with fat layer exposed; L97.422 Non-pressure chronic 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; L97.521 Non-pressure chronic ulcer of other part of left foot limited to breakdown of skin
CPT/HCPCS: 11043

== ENCOUNTER 2024-09-21 10:40 | Outpatient (OUT) | payer MEDICARE, OTHER, MEDICAID, SELFPAY ==
--- OUTSIDE RECORDS SUMMARY | 2005-04-04 10:35 | XMS_ITS | Continuity of Care Document ---
Author Name [facility] Organization [facility] Care Team Providers Care Senior Systems Developer Name Role Phone [facility] Unavailable Unavailable Problems Combined list of problems from Department of Defense and Veterans Affairs facilities. It does not include entries that were removed or entered in error. Problem Status Onset Date Problem Type Date of Resolution Comments Source Benign secondary hypertension Active Condition [place] Degeneration of lumbar or lumbosacral intervertebral disc (ICD-9-CM 722.52) Active Condition [place] Depression Active Condition [place] Depression * (ICD-9-CM 300.4/311.) Active Condition [place] Diabetes Mellitus * (ICD-9-CM 250.00) Active Condition [place] Diabetes with neurological Manifestations, type II or unspecified type, not stat Active Condition [facility] Diabetic Neuropathy (ICD-9-CM 250.60/357.2) Active Condition [place] Hx Of Past Noncompliance Active Condition [place] Hyperlipidemia Active [place] [facility] Hypothyroidism * (ICD-9-CM 244.9) Active Condition [facility] Obesity * (ICD-9-CM 278.00) Active Condition [place] [facility] 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 Medication Details Route Status Patient Instructions Prescription Expires Prescription Number Last Dispense Date Ordering Provider Order Date Order Qty Source ACETAMINOPH EN/PSEUDOEP HEDRINE CAP,ORAL TAKE BY MOUTH ORAL ACTIVE [facility]MO[facility] SHERMAN 2004 [facility] ASPIRIN 81MG TAB,EC TAKE ONE TABLET BY MOUTH EVERY DAY WITH BREAKFAS T ORAL ACTIVE SMOOTH SHERMAN 2004 [facility] CHROMIUM PICOLINATE 200MCG CAP TAKE 1 CAPSULE BY MOUTH TWICE A DAY ORAL ACTIVE MIKAELSTEPHANIE NABOR SHAH 2004 [facility] Allergies, Adverse Reactions, Alerts Combined list of allergies from Department of Defense and Veterans Affairs facilities. It does not include entries that were removed or entered in error. Substance Category Reaction Severity Reaction type Status Date Reported Comments Source BACITRACIN Propensity to adverse reactions to drug (finding) active 6 [facility] GLUCOCORTICOI DS Propensity to adverse reactions to drug (finding) active 5 [facility] NEOSPORIN Propensity to adverse reactions to drug (finding) active 6 [facility] Immunizations Combined list of available immunizations from the Department of Defense and Veterans Affairs facilities. Immunization Series Date Given Administered By Site Reaction Lot Number CVX Code Drug Dishwashing Machine Operator Status Comments Source PNEUMOCOCCAL, UNSPECIFIED FORMULATION 2004 109 complet ed [facility] INFLUENZA, UNSPECIFIED FORMULATION 2003 88 complet ed [facility] Social History Combined list of available smoking, tobacco, and other social history from Department of Defense and Veterans Affairs facilities. Social History Type Response Date Comment Evangelina e Tobacco smoking status NHIS TOBACCO FORMER USER MORE 12 MONTHS 11/06/2004 quit 20+ yrs ago EVI MAXWELL History of tobacco use TOBACCO FORMER USER 7 YEARS OR MORE 06/29/2004 ALEJANDRO
--- OUTSIDE RECORDS SUMMARY | 2024-09-21 10:43 | XMS_ITS | Encounter Summary ---
Author Organization [facility] Address [address] [place] [address] Care Team Providers Care Development Professional Name Role Phone Aamir Purcell MD Primary Care Provider [phone] Encounter Details Date Type Department Care Team (Late st Contact Info) Description 05/10/2024 Abstract [facility] 112 [facility] 110 [place] [address] Unallocated, Noms MD Garrick [address] [place] [address] Social History Tobacco Use Types Packs/Day Years [...] 09/27/2024 1:15 PM EDT Office Visit [facility] [address] [place] [phone] Adilson Johnson, DO [address] [place] [address] documented as of this encounter Visit Diagnoses Not on filedocumented in this encounter Care Teams Development Professional Relationship Specialty Start Date End Date Aamir Purcell MD PCP - General Family Medicine 08/12/22 documented as of this encounter
--- OUTSIDE RECORDS SUMMARY | 2024-09-21 10:43 | XMS_ITS | Encounter Summary ---
Author Organization [facility] Address [address] [place] [address] Care Team Providers Care Category Analyst Name Role Phone Aamir Purecll MD Primary Care Provider [phone] Encounter Details Date Type Department Care Team (Late st Contact Info) Description 10/30/2021 Lab Requisition [facility] [address] [place] [phone] Migue Cole MD [address] [address] Social History Tobacco Use Types Packs/Day Years [...] - 145 mmol/L 10/30/2021 9:42 AM EDT [facility] ([facility]) Potassium 4.3 3.5 - 5.1 mmol/L 10/30/2021 9:42 AM EDT [facility] ([facility]) Chloride 101 98 - 107 mmol/L 10/30/2021 9:42 AM EDT [facility] ([facility]) CO2 28 21 - 31 mmol/L 10/30/2021 9:42 AM EDT [facility] ([facility]) BUN 36(H) 7 - 25 mg/dL 10/30/2021 9:42 AM EDT [facility] ([facility]) Creatinine 0.71 0.60 - 1.20 mg/dL 10/30/2021 9:42 AM EDT [facility] ([facility]) Glucose 74 70 - 100 mg/dL 10/30/2021 9:42 AM EDT [facility] ([facility]) Calcium 9.6 8.6 - 10.3 mg/dL 10/30/2021 9:42 AM EDT [facility] ([facility]) Anion Gap 10 <=30 mmol/L 10/30/2021 9:42 AM EDT [facility] ([facility]) eGFR 94.2 >60.0 mL/min/1. 73m*2 10/30/2021 9:42 AM EDT [facility] ([facility]) Comment:[facility] s estimated glomerular filtration rate [...] BUN/Creatinine Ratio 50.70 10/18 9:42 AM EDT [facility] ([facility]) Blood Venous blood specimen / Unknown 10/30/2021 7:00 AM EDT 10/30/2021 3:45 AM EDT us Migue Cole MD LAB BLOOD ORDERABLES Final Result [facility] ([facility]) [address] [place], [place] [id number] documented in this encounter Visit Diagnoses Not on filedocumented in this encounter Care Teams Category Analyst Relationship Specialty Start Date End Date Aamir Purcell MD [address] [place] [address] PCP - General 10/19/21 documented as of this encounter
--- OUTSIDE RECORDS SUMMARY | 2024-09-21 10:43 | XMS_ITS | Encounter Summary ---
Author Organization [facility] Address [address] [place] [address] Care Team Providers Care Naval Special Warfare Medic Name Role Phone Aamir Purcell MD Primary Care Provider [phone] Encounter Details Date Type Department Care Team (Late st Contact Info) Description 08/24/2024 Abstract [facility] 112 [facility] 110 [place] [address] Unallocated, Noms MD Garrick [address] [place] [address] Social History Tobacco Use Types Packs/Day Years [...] 09/27/2024 1:15 PM EDT Office Visit [facility] [address] [place] [address] Adilson Johnson, DO [address] [place] [address] documented as of this encounter Visit Diagnoses Not on filedocumented in this encounter Care Teams Naval Special Warfare Medic Relationship Specialty Start Date End Date Aamir Purcell MD PCP - General Family Medicine 08/12/22 documented as of this encounter
--- OUTSIDE RECORDS SUMMARY | 2024-09-21 10:43 | XMS_ITS | Encounter Summary ---
Author Organization [facility] Address [address] [place] [address] Care Team Providers Care Musical Instrument Maker Or Repairer Name Role Phone Aamir Purcell Primary Care Provider [phone] Hoang Gilliam DPM Unavailable [phone] SOMMER DO, W. 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 hoon[place] arteries of left leg with ulceration of other part of foot (HCC) Hoang Gilliam DPM [address] [place] [address] Phone: tel: fax: [facility] [address], 3rd [place] [address] Phone: tel: fax: Referral ID Status Reason Start Date Expiration Date V isits Requested Visits Authorized [id number] Closed Specialty Services Required/Herminia ent's Best Interest 03/28/2017 03/28/2018 1 1 Encounter Details Date Type Department Care Team (Latest Contact Info) Description 03/28/2017 Transcribe Orders [facility] [address], 3rd [place] [address] Hoang Gilliam, MARK [address] [place] [address] PVD (peripheral vascular disease) (Primary Dx); 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); Atherosclerosis of hoon[place] arteries of left leg with ulceration of [...] Without Evidence Of Necrosis (Hcc) Atherosclerosis of hoon[place] arteries of left leg with ulceration of other part of foot (HCC) 1 Occurrences starting 03/28/2017 until 03/28/2018 documented as of this encounter Visit Diagnoses Diagnosis PVD (peripheral vascular disease)- Primary Unspecified peripheral vascular disease 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 of hoon[place] arteries of left leg with ulceration of other part of foot (HCC) documented in this encounter Additional Health Concerns Infection Onset Date Last Indicated Resolved Time COVID-19 Suspected 05/18/2021 05/18/2021 2 7:53 PM EDT COVID-19 Suspected 05/29/2021 05/29/2021 2 12:26 PM EDT documented as of this encounter Care Teams Musical Instrument Maker Or Repairer Relationship Specialty Start Date End Date Aamir Purcell DO [address] [place] [address] PCP - General Family Medicine 03/28/17 Hoang Gilliam DPM [address] [place] [address] Consulting Physician Podiatry 04/07/17 05/17/21 Reji Miramontes III, DO [address] [place] [address] Consulting Physician Vascular Surgery 04/07/17 05/17/21 documented as of this encounter
--- OUTSIDE RECORDS SUMMARY | 2024-09-21 10:43 | XMS_ITS | Clinical Summary ---
Author Organization [facility] Address [address] [address] Care Team Providers Care Clinical Nurse Specialist Name Role Phone Aamir Purcell MD Primary Care Provider [phone] Social History Tobacco Use Types Packs/Day Years Used Date Smoking Tobacco: Never Assessed [place] Safety & Environment Answer Date Rec orded [...] - 2023-2 5 season) 2023 Influenza Vaccine (#1) 2024 11/04/2013 Pneumococcal Vaccine: Pediat rics (0 to 5 [...] Recently Relevant to Health Maintenance Insurance MEDICARE Member Subscriber Plan / Payer (Ef fective 2004-Present) Name:Cleo Georges Member ID:[id number] Relation to Subscriber:Self Name:Cleo Georges Subscriber ID:[id number] Payer ID:[id number] Group ID:Not on file Type:Medicare Address: [facility] [place] [id number] Care Teams Clinical Nurse Specialist Relationship Specialty Start Date End Date Aamir Purcell MD [address] [place] [address] PCP - General 10/19/21
--- OUTSIDE RECORDS SUMMARY | 2024-09-21 10:43 | XMS_ITS | Clinical Summary ---
Author Organization [facility] Address [address] [facility], [address] [place] [address] Care Team Providers Care Licensed Sales Assistant Name Role Phone Migue Cole MD Primary Care Provider [phone] Allergies Active Allergy Reactions Criticality Noted Date Comments Moxifloxacin Hydrochloride Rash Low 12/02/2011 Cephalexin Rash Low 12/02/2011 Moxifloxacin Rash High 10/28/2016 Peg 1396-Fze-Cesxv-Nacl-Nasu lf High 10/28/2016 Tapentadol Other (See Comments) [...] COVID-19 Vaccine ( season) 2023 Flu vaccine (#1) 09/17/2024 10/07/2019, 11/04/2013 Pneumococcal 0-49 years Vaccine Discontinued 10/07/2019, 07/29/2012 [...] this topic Medical Devices Implanted Type Area Sprinkler Inspector Device Identifier Shelf Expiration Date Model / Serial / Lot System Spnl Seal 3ml Exact Duraseal - [id number] Implanted:Qty: 1 on 07/06/2021 by Ban Cevallos DO at [facility] N/A: Spine Cervical [employer] P[employer] PhysiciansCICytosorbents BRETT-WD 09/27/2022 [id number] / / Kit Bne Grft Xsm 1.4cc Rhbmp-2 Absrb Cllgn Spng Infuse - [id number] Implanted:Qty: 1 on 09/25/2021 by Ban Cevallos DO at [facility] N/A: Spine Cervical [employer] SPINALGRAFT TECH-WD 02/16/2023 [id number] / [id number] / [id number] Graft Cellr Bne Matrx Influx Sparc 5cc - [id number] Implanted:Qty: 1 on 09/25/2021 by Ban Cevallos DO at [facility] N/A: Spine Cervical [employer]-WD 05/04/2023 [id number] / [id number] / [id number] Graft Cellr Bne Matrx Influx Sparc 5c - [id number] Implanted:Qty: 1 on 09/25/2021 by Ban Cevallos DO at [facility] N/A: Spine Cervical [employer]-WD 05/04/2023 [id number] / [id number] / [id number] Screw Spnl L34mm [id number] Occipitocervical Up Thor Multiaxial - [id number] Implanted:Qty: 2 on 09/25/2021 by Ban Cevallos DO at [facility] N/A: Spine Cervical [employer] SOFAMOR DANEK-WD [id number] / / Bishnu Spnl L25mm Dia3.5mm Occipitocervical Up Thor Precut - [id number] Implanted:Qty: 2 on 09/25/2021 by Ban Cevallos DO at [facility] N/A: Spine Cervical [employer] SOFAMOR DANEK-WD [id number] / / Set Screw Spinal M6 - [id number] Implanted:Qty: 4 on 09/25/2021 by Ban Cevallos DO at [facility] N/A: Spine Cervical [employer] SOFAMOR DANEK-WD [id number] / / Procedures Procedure Name Priority Date/Time [...] 09/27/2021 2:38 AM EDT [facility] GFR Comment 09/27/2021 2:38 AM EDT [facility] Comment: Average GFR for 50-59 years old: 93 mL/min/1.73sq m Chronic Kidney Disease: <60 mL/min/1.73sq m Kidney failure: <15 mL/min/1.73sq m eGFR calculated using average adult body mass. Additional eGFR calculator available at: http://[email or web address]/multiple_crcl_2012.htm BLOOD SPECIMEN / Unknown 09/27/2021 2:38 AM EDT 09/27/2021 2:42 AM EDT Darleen Carmona MD CHEMISTRY ORDERABLES Edited Resu lt - Final Performing Organization Address [facility] Co de Phone Number [facility] [address] [place] [address] * Hemoglobin A1C (09/09/2021 7:34 AM EDT) Hemoglobin A1C 5.1 4.0 - 6.0 % 09/09/2021 7:34 AM EDT [facility] Estimated Avg Glucose 100 mg/dL 09/09/2021 7:34 AM EDT [facility] Comment: The ADA and AACC recommend providing the estimated average glucose result to permit better patient understanding of their HBA1c result. 09/09/2021 7:34 AM EDT 09/09/2021 8:11 AM EDT Chris Lassiter MD CHEMISTRY ORDERABLES Final Resul t Performing Organization Address [facility] Co de Phone Number [facility] [address] [place] [address] * (ABNORMAL) OCCULT BLOOD SCREEN (07/24/2021 2:30 PM EDT) Pathologist [facility] Occult Blood, Stool #1 POSITIVE( A) NEGATIVE 07/24/2021 2:30 PM EDT [facility] Date, Stool #1 [id number] 07/24/2021 2:30 PM EDT [facility] Time, Stool #1 [id number] 07/24/2021 2:30 PM EDT [facility] STOOL SPECIMEN / Unknown 07/24/2021 2:30 PM EDT 07/25/2021 12:13 AM EDT Xin Grove MD BODY FLUIDS AND STOOLS ORDERABLE S Final Result Performing Organization Address [facility] Co de Phone Number [facility] [address] [place] [address] * LIPID PANEL (06/28/2021 9:38 PM EDT) Pathologist [facility] Cholesterol 155 <200 mg/dL 06/28/2021 9:38 PM EDT [facility] Comment: Cholesterol Guidelines: <200 Desirable 200-240 Borderline >240 Undesirable HDL 71 >40 mg/dL 06/28/2021 9:38 PM EDT [facility] Comment: HDL Guidelines: <40 Undesirable 40-59 Borderline >59 Desirable LDL Cholesterol 63 0 - 130 mg/dL 06/28/2021 9:38 PM EDT [facility] Comment: LDL Guidelines: <100 Desirable 100-129 Near to/above Desirable 130-159 Borderline >159 Undesirable Direct (measured) LDL and calculated LDL are not interchangeable tests. Chol/HDL Ratio 2.2 <5 06/28/2021 9:38 PM EDT [facility] Comment: Triglycerides 105 <150 mg/dL 06/28/2021 9:38 PM EDT [facility] Comment: Triglyceride Guidelines: <150 Desirable 150-199 Borderline 200-499 High >499 Very high Based on AHA Guidelines for fasting triglyceride, November 2011. BLOOD SPECIMEN / Unknown 06/28/2021 9:38 PM EDT 06/28/2021 9:38 PM EDT Jenifer Jewell MD CHEMISTRY ORDERABLES Final Result [facility] [address] [place] [address] * Microalbumin, Ur (06/25/2013 7:05 AM EDT) Albumin Urine 12 <21 mg/L 06/25/2013 9:11 PM EDT [facility] Creatinine, Ur 166.1 39.0 - 259.0 mg/dL 06/25/2013 9:11 PM EDT [facility] Comment: The reference range and other method performance specifications have not been established for this body fluid. The test result must be integrated into the clinical context for interpretation. Microalb/School Standards Coach. Ratio 7 mcg/mg creat 06/25/2013 9:11 PM EDT [facility] Urine Microalbumin Interp 06/25/2013 9:11 PM EDT [facility] Comment: REFERENCE RANGE NORMAL = 0 - 13 mcg/mg creat BORDERLINE = 14 - 30 mcg/mg creat ABNORMAL = >30 mcg/mg creat Performed at [facility] [address] [place] [address] [phone] 06/25/2013 7:05 AM EDT 06/25/2013 7:06 AM EDT us Tobias Cui MD URINE ORDERABLES Edited Resu lt - Final [facility] [address] [place] [address], [facility] [phone] [facility] from Last 3 Months or Most Recently Relevant to Health Maintenance Insurance MEDICARE [facility] [place]ICAID [place] MEDICARE MEDICARE Member Subscriber Plan / Payer (Ef fective 2002-Present) Name:Cleo Georges Relation to Subscriber:Self Name:Cleo Georges Payer ID:Not on file Group ID:Not on file Type:Not on file Address: [address] Advance Directives Documents on File Type Date Recorded Patient Marketing Specialist Expl anation ACP-Advance Directive 08/13/2021 4:27 PM [...] Eun Candelaria Supplemental (Ot her) Decision Maker Care Teams Licensed Sales Assistant Relationship Specialty Start Date End Date Migue Cole MD [address] [place] [address] PCP - General Internal Medicine 08/14/21
--- OUTSIDE RECORDS SUMMARY | 2024-09-21 10:43 | XMS_ITS | Encounter Summary ---
Author Organization [facility] Address [address] [place] [address] Care Team Providers Care Research Specialist Name Role Phone Aamir Purcell MD Primary Care Provider [phone] Encounter Details Date Type Department Care Team (Late st Contact Info) Description 06/28/2024 Abstract [facility] 112 [facility] 110 [place] [address] Unallocated, Noms MD Garrick [address] [place] [address] Social History Tobacco Use Types Packs/Day Years [...] 09/27/2024 1:15 PM EDT Office Visit [facility] [address] [place] [phone] Adilson Johnson, DO [address] [place] [address] documented as of this encounter Visit Diagnoses Not on filedocumented in this encounter Care Teams Research Specialist Relationship Specialty Start Date End Date Aamir Purcell MD PCP - General Family Medicine 08/12/22 documented as of this encounter
--- OUTSIDE RECORDS SUMMARY | 2024-09-21 10:43 | XMS_ITS | Encounter Summary ---
Author Organization [facility] Address [address] [place] [address] Care Team Providers Care Assistant Account Manager Name Role Phone Aamir Purcell MD Primary Care Provider [phone] Encounter Details Date Type Department Care Team (Late st Contact Info) Description 11/25/2022 Orders Only [facility] 112 [facility] 110 [place] [address] A, Unknown Practice [address] [place] [address] Social History Tobacco Use Types Packs/Day Years [...] 09/27/2024 1:15 PM EDT Office Visit [facility] [address] [place] [address] dAilson Johnson, DO [address] [place] [address] documented as of this encounter Procedures Procedure Name Priority Date/Time Associated Diagnosis Comments SCANNED LABS Routine 11/23/2022 9:24 AM EDT documented in this encounter Results * SCANNED LABS (11/23/2022 9:24 AM EDT) us Unknown Practice A LAB CHG PERFORMABLES Final Re sult documented in this encounter Visit Diagnoses Not on filedocumented in this encounter Care Teams Assistant Account Manager Relationship Specialty Start Date End Date Aamir Purcell MD PCP - General Family Medicine 08/12/22 documented as of this encounter
--- OUTSIDE RECORDS SUMMARY | 2024-09-21 10:43 | XMS_ITS | Clinical Summary ---
Author Organization [facility] Address [address] [place] [address] Phone Care Team Providers Care Training Executive Name Role Phone Physician, Pcp Unknown Primary [...] History Medical History Date Comments Diabetes mellitus (CMS/[facility] V24, [facility] V28) Social History Tobacco Use Types Packs/Day [...] 10/07/2019, 07/29/2012 Colorectal Cancer Screening: Colonoscopy 04/05/2021 HIV Screening 04/05/2021 Hepatitis C Screening [...] 2023 COVID-19 Vaccine ( - season) 2023 Depression Screening 02/18/2024 Influenza Vaccine (#1) 2024 0, 11/04/2013, 11/04/2013 [...] LAB CHEMISTRY METHOD 04/06/2021 5:31 AM EST [facility] Potassium 4.2 3.6 - 5.1 mmol/L LAB CHEMISTRY METHOD 04/06/2021 5:31 AM EST [facility] Chloride 106 98 - 107 mmol/L LAB CHEMISTRY METHOD 04/06/2021 5:31 AM EST [facility] CO2 21(L) 22 - 32 mmol/L LAB CHEMISTRY METHOD 04/06/2021 5:31 AM EST [facility] Anion Gap 9 6 - 18 LAB CHEMISTRY METHOD 04/06/2021 5:31 AM [facility] Glucose 192(H) 70 - 99 mg/dL LAB CHEMISTRY METHOD 04/06/2021 5:31 AM [facility] BUN 22(H) 8 - 20 mg/dL LAB CHEMISTRY METHOD 04/06/2021 5:31 AM [facility] Creatinine 1.06 0.60 - 1.30 mg/dL LAB CHEMISTRY METHOD 04/06/2021 5:31 AM [facility] eGFR 58 mL/min/1. 73m2 LAB CHEMISTRY METHOD 04/06/2021 5:31 AM [facility] BUN/Creatinine Ratio 20.8(H) 12.0 - 20.0 LAB CHEMISTRY METHOD 04/06/2021 5:31 AM [facility] Calcium 9.0 8.9 - 10.3 mg/dL LAB CHEMISTRY METHOD 04/06/2021 5:31 AM [facility] AST (SGOT) 14(L) 15 - 41 unit/L LAB CHEMISTRY METHOD 04/06/2021 5:31 AM [facility] ALT (SGPT) 11 7 - 52 unit/L LAB CHEMISTRY METHOD 04/06/2021 5:31 AM [facility] Alkaline Phosphatase 88 32 - 91 unit/L LAB CHEMISTRY METHOD 04/06/2021 5:31 AM [facility] Total Protein 6.3 6.1 - 7.9 g/dL LAB CHEMISTRY METHOD 04/06/2021 5:31 AM [facility] Albumin 3.4(L) 3.5 - 4.8 g/dL LAB CHEMISTRY METHOD 04/06/2021 5:31 AM [facility] Total Bilirubin 0.4 0.3 - 1.2 mg/dL LAB CHEMISTRY METHOD 04/06/2021 5:31 AM EST [facility] Blood Venous blood specimen / Unknown Venipuncture / Unknown 04/06/2021 4:22 AM EST 04/06/2021 5:03 AM EST Sin Carlson MD LAB BLOOD ORDERABLES Final Resul t [facility] [address] [place] [address] * (ABNORMAL) Hemoglobin A1c (04/06/2021 12:42 AM EST) Hemoglobin A1C 11.8(H) <=5.6 % LAB CHEMISTRY METHOD 04/06/2021 12:31 PM EST [facility] Comment: HbA1c values of 5.7-6.4 percent indicate an increased risk for developing diabetes mellitus. HbA1c values greater than or equal to 6.5 percent are diagnostic of diabetes mellitus. For diagnosis of diabetes in individuals without unequivocal hyperglycemia, results should be confirmed by repeat testing. Mean Bld Glu Estim. 292 mg/dL LAB CHEMISTRY METHOD 04/06/2021 12:31 PM EST [facility] Blood Venous blood specimen / Unknown Venipuncture / Unknown 04/06/2021 12:42 AM EST 04/06/2021 12:50 AM EST Sin Carlson MD LAB BLOOD ORDERABLES Final Resul t [facility] [address] [place], [place] [id number] from Last 3 Months or Most Recently Relevant to Health Maintenance Insurance MEDICARE [facility] Advance Directives * Full Code (Latest [...] currently active code status orders. Care Teams Training Executive Relationship Specialty Start Date End Date Physician, Pcp Unknown PCP - General 04/05/21
--- OUTSIDE RECORDS SUMMARY | 2024-09-21 10:43 | XMS_ITS | Encounter Summary ---
Author Organization [facility] Address [address] [place] [address] Care Team Providers Care Printing Sales Representative Name Role Phone Aamir Purcell MD Primary Care Provider Encounter Details Date Type Department Care Team (Late st Contact Info) Description 08/16/2024 [facility] [address] [facility] [address] [place] [phone] Aamir Purcell MD [address] [place] [address] Social History Tobacco Use Types Packs/Day Years [...] 09/27/2024 1:15 PM EDT Office Visit [facility] [address] [place] [phone] Adilson Johnson, DO [address] [place] [address] documented as of this encounter Visit Diagnoses Not on filedocumented in this encounter Care Teams Printing Sales Representative Relationship Specialty Start Date End Date Aamir Purcell MD PCP - General Family Medicine 08/12/22 documented as of this encounter
--- OUTSIDE RECORDS SUMMARY | 2024-09-21 10:43 | XMS_ITS | Clinical Summary ---
Author Organization [facility] Address [address] [place], [place] [id number] Care Team Providers Care Tree Fruit And Nut Crops Farmer Name Role Phone Basilia Tobias Lars PALACIOS [...] 2) 2013 Diabetes Screening 03/23/2018 03/23/2015, 03/23/2015 Influenza Vaccine (#1) 2024 RSV Vaccine (1 [...] - 5.6 % 03/23/2015 10:11 PM EST [facility] Comment: [place] Diabetes [employer] guidelines indicate that patients with HgbA1c in the range 5.7-6.4% are at increased risk for development of diabetes, and intervention by lifestyle modification may be beneficial. HgbA1c greater or equal to 6.5% is considered diagnostic of diabetes. Estimated Average Glucose >240 mg/dL 03/23/2015 10:11 PM EST [facility] Comment: eAG: (Estimated average glucose) is a calculated value from HgbA1c and is product support representative of the average blood glucose level in the last 2-3 month period. Blood specimen (specimen) WHOLE BLOOD SPECIMEN / Unknown 03/23/2015 2:21 PM EST 03/23/2015 2:26 PM EST [facility] Final Result [facility] [address] [place] [address] from Last 3 Months or Most Recently Relevant to Health Maintenance Insurance MEDICARE Care Teams Tree Fruit And Nut Crops Farmer Relationship Specialty Start Date End Date Tobias Cui DO PCP - General Family Medicine 02/13/15
--- OUTSIDE RECORDS SUMMARY | 2024-09-21 10:43 | XMS_ITS | Encounter Summary ---
Author Organization [facility] Address [address] [place] [address] Care Team Providers Care Final Block Press Operator Name Role Phone Aamir Purcell Primary Care Provider [phone] Hoang Gilliam DPM Unavailable [phone] SOMMER DO, W. Don Unavailable [phone] Encounter Details Date Type Department Care Team (Late st Contact Info) Description 04/02/2017 Abstract [facility] Physicians [address] 3rd [place] [address] Alaina Doan MA Social History [...] documented as of this encounter Care Teams Final Block Press Operator Relationship Specialty Start Date End Date Aamir Purcell DO [address] [place] [address] PCP - General Family Medicine 03/28/17 Hoang Gilliam DPM [address] [place] [address] Consulting Physician Podiatry 04/07/17 05/17/21 Reji Miramontes III, DO [address] [place] [address] Consulting Physician Vascular Surgery 04/07/17 05/17/21 documented as of this encounter
--- OUTSIDE RECORDS SUMMARY | 2024-09-21 10:43 | XMS_ITS | Encounter Summary ---
Author Organization [facility] Address [address] [place] [address] Care Team Providers Care Language Pathologist Name Role Phone Aamir Purcell MD Primary Care Provider [phone] Encounter Details Date Type Department Care Team (Late st Contact Info) Description 08/09/2024 Abstract [facility] [address] [facility] [address] [place] [address] Unallocated, Noms MD Garrick [address] [place] [address] Social History Tobacco Use Types Packs/Day Years [...] 09/27/2024 1:15 PM EDT Office Visit [facility] [address] [place] [phone] Adilson Johnson, DO [address] [place] [address] documented as of this encounter Visit Diagnoses Not on filedocumented in this encounter Care Teams Language Pathologist Relationship Specialty Start Date End Date Aamir Purcell MD PCP - General Family Medicine 08/12/22 documented as of this encounter
--- OUTSIDE RECORDS SUMMARY | 2024-09-21 10:43 | XMS_ITS | Clinical Summary ---
Author Organization [facility] Address [address] [place] [address] Care Team Providers Care Heavy Rail Train Operator Name Role Phone Aamir Purcell DO Primary Care Provider [phone] Allergies Active Allergy Reactions Criticality Noted Date [...] series) 2038 Medical Devices Implanted Type Area Music Manager Device Identifier Shelf Expiration Date Model / Serial / Lot Stent-07/27/2012 Implanted:Qty: 1 on 07/27/2012 Stent Right: Eye [employer] [id number] ISTENT / [id number] Description:Non-clinical son ting has demonstrated that the iStent Trabecular Micro-Bypass Stent (Models [id number] and [id number]) is MR Conditional. A patient with this [...] above, the iStent Trabecular Micro-Bypass Stent (Models [id number] and [id number]) is not expected to produce a clinically significant temperature rise after 15 minutes of continuous scanning. In non-clinical testing, the image artifact caused by the device extends less than 15 mm from the device when imaged with a gradient echo pulse sequence and a 3.0 T MRI system Insurance MEDICARE PART [place] [address] [facility] Advance Directives For more information, please contact: [phone] Documents on File Type Date Recorded Patient Plate Developer Expl anation Power of Bulk Sealer 05/28/2021 12:09 PM Power of Bulk Sealer 05/28/2021 12:01 PM * Full Code - Unverified (Latest Code Status on File) Date Activated Date Inactivated Comments 05/18/2021 10:06 PM 05/29/2021 7:56 PM Care Teams Heavy Rail Train Operator Relationship Specialty Start Date End Date Aamir Purcell DO [address] [place] [address] PCP - General Family Medicine 03/28/17
--- OUTSIDE RECORDS SUMMARY | 2024-09-21 10:43 | XMS_ITS | Encounter Summary ---
Author Organization [facility] Address [address] [place] [address] Care Team Providers Care Agile Project Manager Name Role Phone Aamir Purcell MD Primary Care Provider [phone] Encounter Details Date Type Department Care Team (Late st Contact Info) Description 12/13/2022 Clinisync Result Encounter [facility] External Department Unsolicited Maine Chávez, AUTOMATIC LATHE OPERATOR [address] [facility] [address] [place] [address] Social History Tobacco Use Types Packs/Day Years [...] 09/27/2024 1:15 PM EDT Office Visit [facility] [address] [place] [phone] Adilson Johnson, DO [address] [place] [address] documented as of this encounter Procedures Procedure [...] by: SINDY Technologist: ANGÉLICA us Maine Chávez AUTOMATIC LATHE OPERATOR [facility] Final Result documented in this encounter Visit Diagnoses Not on filedocumented in this encounter Care Teams Agile Project Manager Relationship Specialty Start Date End Date Aamir Purcell MD PCP - General Family Medicine 08/12/22 documented as of this encounter
--- OUTSIDE RECORDS SUMMARY | 2024-09-21 10:43 | XMS_ITS | Encounter Summary ---
Author Organization [facility] Address [address] [place] [address] Care Team Providers Care Supervisor Lace Tearing Name Role Phone Aamir Purcell MD Primary Care Provider [phone] Encounter Details Date Type Department Care Team (Late st Contact Info) Description 12/05/2022 Clinisync Result Encounter [facility] External Department Unsolicited Maine Chávez, PROMOTIONS ASSISTANT 112 [facility] 110 [place] [address] Social History Tobacco Use Types Packs/Day Years [...] 09/27/2024 1:15 PM EDT Office Visit [facility] [address] [place] [phone] Adilson Johnson, DO [address] [place] [address] documented as of this encounter Procedures Procedure [...] by: SINDY Technologist: TAMMIE us Maine Chávez PROMOTIONS ASSISTANT [facility] Final Result documented in this encounter Visit Diagnoses Not on filedocumented in this encounter Care Teams Supervisor Lace Tearing Relationship Specialty Start Date End Date Aamir Purcell MD PCP - General Family Medicine 08/12/22 documented as of this encounter
--- OUTSIDE RECORDS SUMMARY | 2024-09-21 10:43 | XMS_ITS | Encounter Summary ---
Author Organization [facility] Address [address] [place] [address] Care Team Providers Care Facetor Name Role Phone Aamir Purcell MD Primary Care Provider [phone] Encounter Details Date Type Department Care Team (Late st Contact Info) Description 10/27/2021 Lab Requisition [facility] [address] [place] [phone] Migue Cole MD [address] [address] Social History Tobacco Use Types Packs/Day Years [...] - 48.0 % 10/27/2021 8:48 PM EDT [facility] ([facility]) Blood Venous blood specimen / Unknown 10/27/2021 7:21 PM EDT 10/27/2021 7:22 PM EDT us Migue Cole MD LAB BLOOD ORDERABLES Final Result [facility] ([facility]) [address] [place] [address] * (ABNORMAL) Hemoglobin (10/27/2021 7:21 PM EDT) Hemoglobin 10.7(L) 12.0 - 15.0 g/dL 10/27/2021 8:49 PM EDT [facility] ([facility]) Blood Venous blood specimen / Unknown 10/27/2021 7:21 PM EDT 10/27/2021 7:22 PM EDT Migeu Cole MD LAB BLOOD ORDERABLES Final Result Performing Organization Address City/[facility] Co de Phone Number [facility] [address] [place], [place] [phone] documented in this encounter Visit Diagnoses Not on filedocumented in this encounter Care Teams Facetor Relationship Specialty Start Date End Date Aamir Purcell MD [address] [place] [address] PCP - General 10/19/21 documented as of this encounter
--- OUTSIDE RECORDS SUMMARY | 2024-09-21 10:43 | XMS_ITS | Encounter Summary ---
Author Organization [facility] Address [address] [place] [address] Care Team Providers Care Basic Acoustic Analyst Name Role Phone Aamir Purcell MD Primary Care Provider [phone] Encounter Details Date Type Department Care Team (Late st Contact Info) Description 03/31/2023 Orders Only [facility] [address] [facility] 110 [place] [address] A, Unknown Practice [address] [place] [phone] Social History Tobacco Use Types Packs/Day Years [...] 09/27/2024 1:15 PM EDT Office Visit [facility] [address] [place] [phone] Adilson Johnson, DO [address] [place] [address] documented as of this encounter Procedures Procedure Name Priority Date/Time Associated Diagnosis Comments SCANNED LABS Routine 03/29/2023 1:07 PM EST documented in this encounter Results * SCANNED LABS (03/29/2023 1:07 PM EST) us Unknown Practice A LAB CHG PERFORMABLES Final Re sult documented in this encounter Visit Diagnoses Not on filedocumented in this encounter Care Teams Basic Acoustic Analyst Relationship Specialty Start Date End Date Aamir Purcell MD PCP - General Family Medicine 08/12/22 documented as of this encounter
--- OUTSIDE RECORDS SUMMARY | 2024-09-21 10:43 | XMS_ITS | Clinical Summary ---
Author Organization [facility] Healthcare Address [address] [place] [address] Care Team Providers Care Taxicab Coordinator Name Role Phone Aamir Purcell MD Primary Care Provider [phone] Allergies Active Allergy Reactions Criticality Noted Date Comments Cephalexin Hives,Itching,Unknow n,Rash,Swelling High 12/02/2011 burning Moxifloxacin Itching,Unknown,Rash ,Swelling High 12/02/2011 Abdominal pain Peg 2535-Pcj-Gclah-Nacl-Mello ulf High 10/28/2016 Tapentadol Unknown High 02/04/2014 [...] at the same time Active HYDROcodone-felicita taminophen ([place]) 5-325 MG tablet Take 1 tablet by [...] x 7 days 14 capsule 5 Active Active Problems Problem Noted Date Diagnosed Date Primary open angle glaucoma (POAG) of both eyes, moderate stage 06/28/2024 Left posterior capsular opacification 06/28/2024 Mild nonproliferative diabet ic retinopathy of both eyes without macular edema associated with type 2 diabetes mellitus 06/28/2024 Dry eyes 06/28/2024 Encounters Date Type Department Care Team Description 09/07/2024 Results Follow-Up [facility] [address] [place] [address] Ramona Campuzano PA 08/27/2024 10:30 AM EDT [facility] [address] [place] [address] Ramona Campuzano PA Other atopic dermatitis (Primary Dx); Traumatic ulcer of left foot, unspecified ulcer stage (HCC); Impetigo 08/27/2024 Orders Only [facility] External Department Unsolicited Ramona Campuzano PA 08/27/2024 Bamboo flowsheet [facility] [address] [place] [address] Ramona Campuzano PA 08/27/2024 Travel 08/24/2024 Abstract [facility] [place] [facility] [address] [facility] 110 [place] [address] Unallocated, Katja Mccauley MD 08/16/2024 [facility] [address] [facility] 110 [place] [address] Aamir Purcell MD 08/10/2024 Clinisync Result Encounter [facility] External Department Unsolicited Provider, Generic External Data 08/10/2024 Clinisync Result Encounter [facility] External Department Unsolicited Provider, Generic External Data 08/09/2024 Abstract [facility] [place] [facility] [address] [facility] 110 [place] [address] Unallocated, Katja Mccauley MD 06/28/2024 2:15 PM EDT Consult [facility] [address] [facility] 300 [place] [phone] Adilson Johnson, Primary open angle glaucoma (POAG) of both eyes, moderate stage (Primary Dx); 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 mellitus (HCC); Left posterior capsular opacification; Dry eyes 06/28/2024 Travel 06/28/2024 Abstract [facility] [place] [facility] [address] [facility] 110 [place] [address] Unallocated, Noms MD Garrick from Last 3 Months Social History Tobacco [...] 09/27/2024 1:15 PM EDT Office Visit [facility] [address] [place] [address] Adilson Johnson, [address] [place] [address] Procedures Procedure Name Priority Date/Time Associated Diagnosis Comments RESULT Routine 08/27/2024 12:00 AM EDT CULTURE, AEROBIC BACTERIA Routine 08/27/2024 12:00 AM EDT SEGMENTAL BLOOD PRESSURE 08/10/2024 3:48 PM EDT XR FOOT SAMANTHA MIN 3 VIEWS 08/10/2024 12:04 PM EDT OCT, OPTIC NERVE - OU - BOTH EYES Routine 06/28/2024 2:15 PM EDT Primary open angle glaucoma (POAG) of both eyes, moderate stage from Last 3 Months Results * (ABNORMAL) RESULT (08/27/2024 12:00 AM EDT) RESULT Comment(A) [facility] Comment: Enterobacter cloacae complex Some Enterobacterales may develop resistance during therapy with third-generation cephalosporins. This resistance is most commonly seen with Citrobacter freundii complex, Enterobacter cloacae complex, and Klebsiella aerogenes. Isolates that initially test susceptible may become resistant within a few days after initiation of therapy. Testing subsequent isolates may be warranted if clinically indicated. (CLSI [id number]) Light growth RESULT 2 Staphylococcus aureus(A) [facility] Comment: Based on susceptibility to oxacillin this isolate would be susceptible to: *Penicillinase-stable penicillins, such as: Cloxacillin, Dicloxacillin, Nafcillin *Beta-lactam combination agents, such as: Amoxicillin-clavulanic acid, Ampicillin-sulbactam, Piperacillin-tazobactam *Oral cephems, such as: Cefaclor, Cefdinir, Cefpodoxime, Cefprozil, Cefuroxime, Cephalexin, Loracarbef *Parenteral cephems, such as: Cefazolin, Cefepime, Cefotaxime, Cefotetan, Ceftaroline, Ceftizoxime, Ceftriaxone, Cefuroxime *Carbapenems, such as: Doripenem, Ertapenem, Imipenem, Meropenem Heavy growth ANTIMICROBIAL SUSCEPTIBILITY Comment [facility] Comment: S = Susceptible; I = Intermediate; R = Resistant P = Positive; N = Negative MICS are expressed in micrograms per mL Antibiotic RSLT#1 RSLT#2 RSLT#3 RSLT#4 Amoxicillin/Clavulanic Acid R Cefepime S Cefoxitin R Cefpodoxime S Ciprofloxacin S Clindamycin R Ertapenem S Erythromycin R Gentamicin S S Levofloxacin S S Linezolid S Moxifloxacin S Oxacillin S Penicillin R Rifampin S Tetracycline S R Tobramycin S Trimethoprim/Sulfa S S Vancomycin S 08/27/2024 08/27/2024 Narrative [facility] - 09/06/2024 11:07 AM EDT Performed at: [address] [place] [id number] Perl Programmer: Angel Jacobs PhD, Phone: [phone] Ramona CESPEDES LAB BLOOD ORDERABLES Final Res ult [facility] * (ABNORMAL) Aerobic culture (08/27/2024 12:00 AM EDT) [facility] CULTURE, AEROBIC BACTERIA Final report(A) [facility] 08/27/2024 08/27/2024 Narrative [facility] - 09/06/2024 11:07 AM EDT Performed at: 01 - [facility] [address] [id number] Perl Programmer: Angel Jacobs PhD, Phone: [phone] Ramona CESPEDES LAB MICROBIOLOGY - GENERAL ORD ERABLES Final Result [facility] * SEGMENTAL BLOOD PRESSURE (08/10/2024 3:48 PM EDT) Anatomical Region Laterality Modality Radiographic Kathie ging 08/10/2024 3:48 PM EDT Narrative 08/10/2024 10:07 PM EDT [place] [id number] Cardiology Report Signed Patient: CLEO GEORGES MR#: [id number] : 1965 Acct:[id number] Age/Sex: 59 / F ADM Date: 08/10/24 Loc: CARD Attending Dr: Kailee CESPEDES Ordering Physician: Kailee Lopez Date of Service: 08/10/24 Procedure(s): CA segmental UE or LE SAMANTHA Accession Number(s): [id number] cc: MAHIN BERNAL ; Kailee Lopez [facility] Test Date: 2024-08-10 Pat Name: CLEO GEORGES Department: Room: - Gender: Female Solar Energy System Installer Helper: : 1965 Requested By: Kailee Lopez Order Number: [id number] Zack MD: FELIPA ALANIS M.D. Interpretive Statements [...] By: FELIPA ALANIS Signed By: 08/10/24220608/10/242206 DD/ 154 TD/TT: Ground Crew Lines Person: Procedure Note Radiology, Radiologist, MD - 08/10/2024 [place] [address] Cardiology Report Signed Patient: CLEO GEORGES LMR#: [id number] : 1965Acct:[id number] Age/Sex: 59 / FADM Date: 08/10/24 Loc: CARD Attending Dr: Kailee CESPEDES Ordering Physician: Kailee Lopez Date of Service: 08/10/24 Procedure(s): CA segmental UE or LE SAMANTHA Accession Number(s): [id number] cc: MAHIN BERNAL [facility] Test Date: 2024-08-10 Pat Name: CLEO GEORGES Department: Room: - 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 Interpretive Statements [...] FELIPA ALANIS Signed By:08/10/24220608/10/242206 DD/ 1548 TD/TT: Ground Crew Lines Person: us Generic External Data Provider IMG XR PROCEDURES Final Result * XR FOOT SAMANTHA MIN 3 VIEWS (08/10/2024 12:04 PM EDT) Anatomical Region Laterality Modality Other 08/10/2024 12:0 4 PM EDT Narrative 08/10/2024 12:07 [place] [address] XRay Report Signed Patient: CLEO GEORGES MR#: [id number] : 1965 Acct:[id number] Age/Sex: 59 / F ADM Date: 08/10/24 Loc: CARD Attending Dr: Kailee CESPEDES Ordering Physician: Kailee Lopez Date of Service: 08/10/24 Procedure(s): XR foot SAMANTHA min 3V Accession Number(s): [id number] cc: MAHIN BERNAL ; Kailee Lopez [place] [address] Patient Name: CLEO GEORGES MRN: [id number] date: 1965 Sex: F Assigned Patient Location: CARD Current Patient Location: CARD Accession/Order Number: [id number] Exam Date: 08/10/2024 11:59 Report Date: 08/10/2024 [...] Crews M.D. 08/10/2024 12:04 PM Dictation Location: [place] [address] Electronically authenticated by: [id number] Y Date: 08/10/2024 12:04 Dictated By: Misa Crews M.D. Signed By: 08/10/24 1207 DD/ 1204 TD/TT: Ground Crew Lines Person: Procedure Note Radiology, Radiologist, MD - 08/10/2024 [place] [address] XRay Report Signed Patient: CLEO GEORGES LMR#: [id number] : 1965Acct:[id number] Age/Sex: 59 / FADM Date: 08/10/24 Loc: CARD Attending Dr: Kailee CESPEDES Ordering Physician: Kailee Lopez Date of Service: 08/10/24 Procedure(s): XR foot SAMANTHA min 3V Accession Number(s): [id number] cc: MAHIN BERNAL ; Kailee Lopez The [place] [id number] Patient Name: CLEO GEORGES MRN: [id number] date: 1965 Sex: F Assigned Patient Location: CARD Current Patient Location: CARD Accession/Order Number: [id number] Exam Date: 08/10/2024 11:59 Report Date: 08/10/2024 [...] Crews M.D. 08/10/2024 12:04 PM Dictation Location: [place] [address] Electronically authenticated by: [id number] Y Date: 2:04 Dictated By: Misa Crews M.D. Signed By:08/10/24 1207 DD/ 1204 TD/TT: Ground Crew Lines Person: us Generic External Data Provider [email or web address] Final Result * OCT, Optic Nerve [...] Final from Last 3 Months Insurance MEDICARE [facility] MEDICAID [place] Care Teams Taxicab Coordinator Relationship Specialty Start Date End Date Aamir Purcell MD PCP - General Family Medicine 08/12/22
--- OUTSIDE RECORDS SUMMARY | 2024-09-21 10:43 | XMS_ITS | Encounter Summary ---
Author Organization [facility] Address [address] [place] [address] Care Team Providers Care Solution Director Name Role Phone Aamir Purcell MD Primary Care Provider [phone] Encounter Details Date Type Department Care Team (Late st Contact Info) Description 09/07/2024 Results Follow-Up [facility] [address] [place] [address] Ramona Campuzano PA [address] [place] [address] Social History Tobacco Use Types Packs/Day Years Used Date Smoking Tobacco: Never Assessed Comments Unknown Sex and Gender Information Value Date Recorded Sex Assigned at Not on file Legal Sex Female 6:48 PM EDT Gender Identity Not on file Sexual Orientation Not on file documented as of this encounter Miscellaneous Notes * Telephone Encounter - Lise Swift LPN - 09/08/2024 9:50 AM EDT Spoke with nurse Alaina on staff today. Alaina states the patient is already established with wound care - saw Dr. Lopez last week.She also sees an in house manager drilling. Forwarding to the provider for review. Thanks! documented in this encounter Plan of Treatment Upcoming Encounters Date Type Department Care Team (Late st Contact Info) Description 09/27/2024 1:15 PM EDT Office Visit [facility] [address] [place] [address] Adilson Johnson, DO [address] [place] [address] documented as of this encounter Visit Diagnoses Not on filedocumented in this encounter Care Teams Solution Director Relationship Specialty Start Date End Date Aamir Purcell MD PCP - General Family Medicine 08/12/22 documented as of this encounter
--- OUTSIDE RECORDS SUMMARY | 2024-09-21 10:44 | XMS_ITS | Encounter Summary ---
Author Organization [facility] Address [address] [place] [address] Care Team Providers Care Tubing Assembler Name Role Phone Aamir Purcell MD Primary Care Provider [phone] Encounter Details Date Type Department Care Team (Late st Contact Info) Description 04/09/[address] [facility] 112 [facility] 110 [place] [address] Unallocated, Noms MD Garrick [address] [place] [address] Social History Tobacco Use Types Packs/Day Years [...] 09/27/2024 1:15 PM EDT Office Visit [facility] [address] [place] [address] Adilson Johnson, DO [address] [place] [address] documented as of this encounter Visit Diagnoses Not on filedocumented in this encounter Care Teams Tubing Assembler Relationship Specialty Start Date End Date Aamir Purcell MD PCP - General Family Medicine 08/12/22 documented as of this encounter
--- OUTSIDE RECORDS SUMMARY | 2024-09-21 10:44 | XMS_ITS | Encounter Summary ---
Author Organization [facility] Address [address] [place] [address] Care Team Providers Care Filtration Plant Operator Name Role Phone Aamir Purcell MD Primary Care Provider [phone] Encounter Details Date Type Department Care Team (Late st Contact Info) Description 03/11/2024 Abstract [facility] 112 [facility] 110 [place] [address] Unallocated, Noms MD Garrick [address] [place] [address] Social History Tobacco Use Types Packs/Day Years [...] 09/27/2024 1:15 PM EDT Office Visit [facility] [address] [place] [address] Adilson Johnson, DO [address] [place] [address] documented as of this encounter Visit Diagnoses Not on filedocumented in this encounter Care Teams Filtration Plant Operator Relationship Specialty Start Date End Date Aamir Purcell MD PCP - General Family Medicine 08/12/22 documented as of this encounter
--- OUTSIDE RECORDS SUMMARY | 2024-09-21 10:44 | XMS_ITS | Encounter Summary ---
Author Organization [facility] Address [address] [place] [address] Care Team Providers Care Sound Tester Name Role Phone Aamir Purcell MD Primary Care Provider [phone] Encounter Details Date Type Department Care Team (Late st Contact Info) Description 06/08/2024 Abstract [facility] 112 [facility] [address] [place] [address] Unallocated, Noms MD Garrick [address] [place] [address] Social History Tobacco Use Types Packs/Day Years [...] 09/27/2024 1:15 PM EDT Office Visit [facility] [address] [place] [address] Adilson Johnson, DO [address] [place] [address] documented as of this encounter Visit Diagnoses Not on filedocumented in this encounter Care Teams Sound Tester Relationship Specialty Start Date End Date Aamir Purcell MD PCP - General Family Medicine 08/12/22 documented as of this encounter
--- OUTSIDE RECORDS SUMMARY | 2024-09-21 10:44 | XMS_ITS | Encounter Summary ---
Author Organization [facility] Address [address] [place] [address] Care Team Providers Care Fat Pressroom Worker Name Role Phone Aamir Purcell MD Primary Care Provider [phone] Encounter Details Date Type Department Care Team (Late st Contact Info) Description 05/05/2024 Abstract [facility] 112 [facility] 110 [place] [address] Unallocated, Noms MD Garrick [address] [place] [address] Social History Tobacco Use Types Packs/Day Years [...] 09/27/2024 1:15 PM EDT Office Visit [facility] [address] [place] [address] Adilson Johnson, DO [address] [place] [address] documented as of this encounter Visit Diagnoses Not on filedocumented in this encounter Care Teams Fat Pressroom Worker Relationship Specialty Start Date End Date Aamir Purcell MD PCP - General Family Medicine 08/12/22 documented as of this encounter
--- OUTSIDE RECORDS SUMMARY | 2024-09-21 10:44 | XMS_ITS | Encounter Summary ---
Author Organization [facility] Address [address] [place] [address] Care Team Providers Care Fundraising Manager Name Role Phone Aamir Purcell MD Primary Care Provider [phone] Encounter Details Date Type Department Care Team (Late st Contact Info) Description 04/19/2024 [facility] 112 [facility] 160 [place] [address] Unallocated, Noms MD Garrick [address] [place] [address] Social History Tobacco Use Types Packs/Day Years [...] 09/27/2024 1:15 PM EDT Office Visit [facility] [address] [place] [address] Adilson Johnson, DO [address] [place] [address] documented as of this encounter Visit Diagnoses Not on filedocumented in this encounter Care Teams Fundraising Manager Relationship Specialty Start Date End Date Aamir Purcell MD PCP - General Family Medicine 08/12/22 documented as of this encounter
--- OUTSIDE RECORDS SUMMARY | 2024-09-21 10:44 | XMS_ITS | Encounter Summary ---
Author Organization [facility] Address [address] [place] [address] Care Team Providers Care Professor Of Spanish Name Role Phone Aamir Purcell MD Primary Care Provider [phone] Encounter Details Date Type Department Care Team (Late st Contact Info) Description 05/03/2024 Abstract [facility] 112 [facility] 110 [place] [address] Unallocated, Noms MD Garrick [address] [place] [address] Social History Tobacco Use Types Packs/Day Years [...] 09/27/2024 1:15 PM EDT Office Visit [facility] [address] [place] [address] Adilson Johnson, DO [address] [place] [address] documented as of this encounter Visit Diagnoses Not on filedocumented in this encounter Care Teams Professor Of Spanish Relationship Specialty Start Date End Date Aamir Purcell MD PCP - General Family Medicine 08/12/22 documented as of this encounter
--- OUTSIDE RECORDS SUMMARY | 2024-09-21 10:44 | XMS_ITS | Encounter Summary ---
Author Organization [facility] Address [address] [place] [address] Care Team Providers Care Residential Remodeling Subcontractor Name Role Phone Aamir Purcell MD Primary Care Provider Encounter Details Date Type Department Care Team (Late st Contact Info) Description 04/19/2024 [facility] 112 [facility] 160 [place] [address] Unallocated, Noms MD Garrick [address] [place] [address] Social History Tobacco Use Types Packs/Day Years [...] 09/27/2024 1:15 PM EDT Office Visit [facility] [address] [place] [address] Adilson Johnson, DO [address] [place] [address] documented as of this encounter Visit Diagnoses Not on filedocumented in this encounter Care Teams Residential Remodeling Subcontractor Relationship Specialty Start Date End Date Aamir Purcell MD PCP - General Family Medicine 08/12/22 documented as of this encounter
--- OUTSIDE RECORDS SUMMARY | 2024-09-21 10:44 | XMS_ITS | Encounter Summary ---
Author Organization [facility] Address [address] [place] [address] Care Team Providers Care Surgical Services Coordinator Name Role Phone Aamir Purcell MD Primary Care Provider [phone] Encounter Details Date Type Department Care Team (Late st Contact Info) Description 04/29/2024 Abstract [facility] [address] [facility] 110 [place] [address] Unallocated, Noms MD Garrick [address] [place] [address] Social History Tobacco Use Types Packs/Day Years [...] 09/27/2024 1:15 PM EDT Office Visit [facility] [address] [place] [address] Adilson Johnson, DO [address] [place] [address] documented as of this encounter Visit Diagnoses Not on filedocumented in this encounter Care Teams Surgical Services Coordinator Relationship Specialty Start Date End Date Aamir Purcell MD PCP - General Family Medicine 08/12/22 documented as of this encounter
== END 2024-09-21 10:41 | disposition home or self-care (01) ==
LOC: WC 10:41
PROVIDERS: PCP Family Medicine; Visit Provider Physician Assistant
DX: E11.621 Type 2 diabetes mellitus with foot ulcer (principal); L97.512 Non-pressure chronic ulcer of other part of right foot with fat layer exposed; L97.521 Non-pressure chronic ulcer of other part of left foot limited to breakdown of skin; L97.422 Non-pressure chronic 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
CPT/HCPCS: 11043

== ENCOUNTER 2024-10-05 10:57 | Outpatient (OUT) | payer MEDICARE, OTHER, MEDICAID, SELFPAY ==
--- OUTSIDE RECORDS SUMMARY | 2005-04-04 10:35 | XMS_ITS | Continuity of Care Document ---
Author Name [facility] Organization [facility] Care Team Providers Care Carton Inspector Name Role Phone [facility] Unavailable Unavailable Problems Combined list of problems [...] By: Jossie MARTIN Comment: severe axonal/demy elinative [facility] Peripheral Neuropathy (ICD-9-CM 355.9) Active Condition [place] [...] adverse reactions to drug (finding) active 6 [facility] GLUCOCORTICOI DS Propensity to adverse reactions to drug (finding) active 5 [facility] NEOSPORIN Propensity to adverse reactions to drug (finding) active 6 [facility] Immunizations Combined list of available immunizations from the Department of Defense and Veterans Affairs facilities. Immunization Series Date Given Administered By Site Reaction Lot Number CVX Code Drug Weights And Measures Sealer Status Comments Source PNEUMOCOCCAL, UNSPECIFIED FORMULATION 2004 109 complet ed [facility] INFLUENZA, UNSPECIFIED FORMULATION 2003 88 complet ed [facility] Social History Combined list of available smoking, tobacco, and other social history from Department of Defense and Veterans Affairs facilities. Social History Type Response Date Comment Evaneglina e Tobacco smoking status NHIS TOBACCO FORMER USER MORE 12 MONTHS 11/06/2004 quit 20+ yrs ago EVI MAXWELL History of tobacco use TOBACCO FORMER USER 7 YEARS OR MORE 06/29/2004 ALEJANDRO
--- OUTSIDE RECORDS SUMMARY | 2024-09-27 13:15 | XMS_ITS | Encounter Summary ---
Author Organization [facility] Address [address] [place] [address] Care Team Providers Care Manager Care Management Name Role Phone Aamir Purcell MD Primary Care Provider [phone] Reason for Visit * Reason Comments Glaucoma Encounter Details Date Type Department Care Team (Latest Contact Info) Description 09/27/2024 1:15 PM EDT Office Visit [facility] [address] [place] [address] Adilson Johnson DO [address] [place] [address] Primary open angle glaucoma (POAG) of both eyes, moderate stage (Primary Dx); 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 mellitus (HCC); Left posterior capsular opacification; Dry eyes Social History Tobacco Use Types Packs/Day Years Used Date Smoking Tobacco: Never Assessed Comments Unknown Sex and Gender Information Value Date Recorded Sex Assigned at Not on file Legal Sex Female 6:48 PM EDT Gender Identity Not on file Sexual Orientation Not on file documented as of this encounter Progress Notes * DO Flip Herrera 09/27/2024 1:15 PM EDT Images from the original note were not included. Assessment/Plan Diagnoses and all orders for this visit: Primary open angle glaucoma (POAG) of both eyes, moderate stage - Primary open angle glaucoma OU - Importance of taking medications as prescribed was stressed. Patient was advised to report any inability or unwillingness to take medications or if cost is a concern. Patient must report any side effects that may develop. Patient must report any change in systemic medications as they may interact or interfere with their glaucoma medications. Patient will be dilated at least on an annual basis for optic nerve evaluation and will likely have an automated visual field examination at least once a year. It was explained to the patient that they might require additional treatment for intraocular pressure control such as laser therapy or surgical intervention - status post (s/p) Tube shunt left eye (OS) - working well with good intraocular pressure (IOP) control - status post (s/p) gen 1 iStent - Pt still only using Brimonidine right eye (OD) BID. NEEDS TO BE on Latanporost right eye (OD) at bedtime and switch Brimonidine to Combigan right eye (OD) BID. 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 mellitus (CMS/HCC) - Diabetes Mellitus with signs of diabetic retinopathy on dilated retinal examination today OU: Discussed the pathophysiology of diabetes and its effect on the eye. Stressed the importance of strong glucose control. Advised of importance of at least yearly dilated examinations, but to contact us imm ediately for any problems or concerns. Continue aggressive control of the blood sugar, blood pressure and cholesterol. Left posterior capsular opacification - PCO OS: (Posterior Capsule Opacification) Can be observed without intervention if PCO is not visually significant. Nd:YAG laser capsulotomy may be considered if impairment of vision rises to a level that dose not meet the patient's functional needs or interferes with activities of daily living. Risks, benefits and alternatives to the procedure will be reviewed. If the patient has undergone Nd:YAG laser capsulotomy, they are to notify their director housekeeping promptly if they have a significant change in symptoms, such as flashes of light (photopsia), an increase in floaters, loss of visual field or decrease in visual acuity. Dry eyes - Dry Eyes OU -- Environmental changes to minimize dryness and exposure and the use of artificial tears were recommended. documented in this encounter Plan of Treatment Upcoming Encounters Date Type Department Care Team (Late st Contact Info) Description 12/27/2024 1:45 PM EST Office Visit [facility] [address] [place] [address] Adilson Johnson, DO [address] [place] [address] documented as of this encounter Procedures Procedure Name Priority Date/Time Associated Diagnosis Comments TRINIDAD VISUAL FIELD - OU - BOTH EYES Routine 09/27/2024 1:41 PM EDT Primary open angle glaucoma (POAG) of both eyes, moderate stage documented in this encounter Results * Trinidad Visual Field - OU - Both Eyes (09/27/2024 1:41 PM EDT) Anatomical Region Laterality Modality Head Visual Field Narrative 09/27/2024 1:41 PM EDT Right Eye Reliability was good. Progression has been stable. Foveal threshold was normal. Findings include superior arcuate defect, superior nasal step defect. Left Eye Reliability was good. Progression has been stable. Foveal threshold was normal. Findings include superior arcuate defect, superior nasal step defect, inferior nasal step defect. Adilson Johnson DO OPHTH VISUAL FIELD Final Re sult documented in this encounter Visit Diagnoses Diagnosis Primary open angle glaucoma (POAG) of both eyes, moderate stage- Primary 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 mellitus (HCC) Left posterior capsular opacification Unspecified after-cataract Dry eyes Unspecified tear film insufficiency documented in this encounter Care Teams Manager Care Management Relationship Specialty Start Date End Date Aamir Purcell MD PCP - General Family Medicine 08/12/22 documented as of this encounter
--- OUTSIDE RECORDS SUMMARY | 2024-10-05 11:00 | XMS_ITS | Encounter Summary ---
Author Organization [facility] Address [address] [place] [address] Care Team Providers Care Credit Risk Specialist Name Role Phone Aamir Purcell DO Primary Care Provider [phone] Adilson Hernandez MD Unavailable [phone] Kartik Mejia MD Unavailable [phone] Tisha Arriaga MD Unavailable Luis Miguel Kaur MD Unavailable [phone] Chris Zavala OD Unavailable Unavailable Encounter Details Date Type Department Care Team (Late st Contact Info) Description 11/01/2019 Telephone Infusion [facility] Outpatient Care [address] [place] [address] Nahomy Fenton, VIRGIE Social History [...] Comorbidity, call the COVID-19 Call Center at [phone] withAttending approval ? Comorbidity: Age >60: No [...] on filedocumented in this encounter Care Teams Credit Risk Specialist Relationship Specialty Start Date End Date Aamir Purcell DO PCP - General Family Medicine 03/06/17 Adilson Hernandez MD [address] [place] [address] Ophthalmology 07/18/17 Kartik Mejia MD [address] [place] [address] Pain Medicine 12/25/17 Tisha Arriaga MD [address] [place] [id number] Neurologist Neurology 07/18/17 Luis Miguel Kaur MD [address] [place] [address] Rig Site Engineer Endocrinology, Diabetes & Metabolism 03/06/17 Chris Zavala, OD [address] [place] [address] Optometry 03/15/20 documented as of this encounter
--- OUTSIDE RECORDS SUMMARY | 2024-10-05 11:00 | XMS_ITS | Encounter Summary ---
Author Organization [facility] Address [address] [place] [address] Care Team Providers Care Flagman Name Role Phone Aamir Purcell Primary Care Provider [phone] Hoang Gilliam DPM Unavailable [phone] SOMMER DO, W. Don Unavailable [phone] Encounter Details Date Type Department Care Team (Late st Contact Info) Description 04/02/2017 Abstract [facility] [address], 3rd [place] [address] Alaina Doan MA Social History [...] documented as of this encounter Care Teams Flagman Relationship Specialty Start Date End Date Aamir Purcell DO [address] [place] [address] PCP - General Family Medicine 03/28/17 Hoang Gilliam DPM [address] [place] [address] Consulting Physician Podiatry 04/07/17 05/17/21 Reji Miramontes III, DO [address] [place] [address] Consulting Physician Vascular Surgery 04/07/17 05/17/21 documented as of this encounter
--- OUTSIDE RECORDS SUMMARY | 2024-10-05 11:00 | XMS_ITS | Encounter Summary ---
Author Organization [facility] Address [address] [place] [address] Care Team Providers Care Coke Burner Name Role Phone Aamir Purcell DO Primary Care Provider [phone] Hoang Gilliam DPM Unavailable [phone] SOMMER DO, W. 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) Hoang Gilliam DPM [address] [place] [address] Phone: tel: fax: [facility] Phys[facility] [address] 3rd [place] [address] Phone: tel: fax: Referral ID Status Reason Start Date Expiration Date V isits Requested Visits Authorized [id number] Closed Specialty Services Required/Herminia ent's Best Interest 03/28/2017 03/28/2018 1 1 Encounter Details Date Type Department Care Team (Latest Contact Info) Description 03/28/2017 Transcribe Orders [facility] [address], 3rd [place] [address] Hoang Gilliam, MARK [address] [place] [address] PVD (peripheral vascular disease) (Primary Dx); 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); Atherosclerosis of salamatof arteries of left leg with ulceration of [...] Without Evidence Of Necrosis (Hcc) 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) 1 Occurrences starting 03/28/2017 until 03/28/2018 documented as of this encounter Visit Diagnoses Diagnosis PVD (peripheral vascular disease)- Primary Unspecified peripheral vascular disease 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) documented in this encounter Additional Health Concerns Infection Onset Date Last Indicated Resolved Time COVID-19 Suspected 05/18/2021 05/18/2021 2 7:53 PM EDT COVID-19 Suspected 05/29/2021 05/29/2021 2 12:26 PM EDT documented as of this encounter Care Teams Coke Burner Relationship Specialty Start Date End Date Aamir Purcell DO [address] [place] [address] PCP - General Family Medicine 03/28/17 Hoang Gilliam DPM [address] [place] [address] Consulting Physician Podiatry 04/07/17 05/17/21 Reji Miramontes III, DO [address] [place] [address] Consulting Physician Vascular Surgery 04/07/17 05/17/21 documented as of this encounter
--- OUTSIDE RECORDS SUMMARY | 2024-10-05 11:00 | XMS_ITS | Encounter Summary ---
Author Organization [facility] Address [address] [place] [address] Care Team Providers Care Wedding Coordinator Name Role Phone Aamir Purcell DO Primary Care Provider [phone] Adilson Hernandez MD Unavailable [phone] Kartik Mejia MD Unavailable [phone] Tisha Arriaga MD Unavailable Luis Miguel Kaur MD Unavailable [phone] Chris Zavala OD Unavailable Unavailable Encounter Details Date Type Department Care Team (Late st Contact Info) Description 10/11/2019 Telephone Infusion [facility] Outpatient Care [address] [place] [address] Nahomy Fenton, VIRGIE Social History [...] Comorbidity, call the COVID-19 Call Center at [phone] withAttending approval ? Comorbidity: Age >60: No [...] on filedocumented in this encounter Care Teams Wedding Coordinator Relationship Specialty Start Date End Date Aamir Purcell DO PCP - General Family Medicine 03/06/17 Adilson Hernandez MD [address] [place] [address] Ophthalmology 07/18/17 Kartik Mejia MD [address] [place] [address] Pain Medicine 12/25/17 Tisha Arriaga MD [address] [place] [id number] Neurologist Neurology 07/18/17 Luis Miguel Kaur MD [address] [place] [address] Traffic Recorder Endocrinology, Diabetes & Metabolism 03/06/17 Chris Zavala, OD [address] [place] [address] Optometry 03/15/20 documented as of this encounter
--- OUTSIDE RECORDS SUMMARY | 2024-10-05 11:01 | XMS_ITS | Encounter Summary ---
Author Organization [facility] Address [address] [place] [address] Care Team Providers Care Bulk Tank Driver Name Role Phone Aamir Purcell MD Primary Care Provider Encounter Details Date Type Department Care Team (Late st Contact Info) Description 04/19/2024 [facility] [address] [place] [address] Unallocated, [facility] [place] [place] [address] Social History Tobacco Use Types Packs/Day Years [...] 12/27/2024 1:45 PM EST Office Visit [facility] Eye [address] [place] [address] Adilson Johnson, DO [address] [place] [address] documented as of this encounter Visit Diagnoses Not on filedocumented in this encounter Care Teams Bulk Tank Driver Relationship Specialty Start Date End Date Aamir Purcell MD PCP - General Family Medicine 08/12/22 documented as of this encounter
--- OUTSIDE RECORDS SUMMARY | 2024-10-05 11:01 | XMS_ITS | Encounter Summary ---
Author Organization [facility] Address [address] [place] [address] Care Team Providers Care Java Groovy Developer Name Role Phone Aamir Purcell MD Primary Care Provider [phone] Encounter Details Date Type Department Care Team (Late st Contact Info) Description 09/27/2024 Bamboo flowsheet [facility] [address] [place] [address] Adilson Johnson DO [address] [place] [address] Social History Tobacco Use Types Packs/Day Years [...] 12/27/2024 1:45 PM EST Office Visit [facility] [address] [place] [address] Adilson Johnson DO [address] [place] [address] documented as of this encounter Visit Diagnoses Not on filedocumented in this encounter Care Teams Java Groovy Developer Relationship Specialty Start Date End Date Aamir Purcell MD PCP - General Family Medicine 08/12/22 documented as of this encounter
--- OUTSIDE RECORDS SUMMARY | 2024-10-05 11:01 | XMS_ITS | Encounter Summary ---
Author Organization [facility] Address [address] [place] [address] Care Team Providers Care Crew Truck Driver Name Role Phone Aamir Purcell MD Primary Care Provider [phone] Encounter Details Date Type Department Care Team (Late st Contact Info) Description 08/09/2024 Abstract [facility] 112 [facility] 110 [place] [address] Unallocated, [facility] MD [address] [place] [address] Social History Tobacco Use Types Packs/Day Years [...] 12/27/2024 1:45 PM EST Office Visit [facility] [address] [place] [address] Adilson Johnson, DO [address] [place] [address] documented as of this encounter Visit Diagnoses Not on filedocumented in this encounter Care Teams Crew Truck Driver Relationship Specialty Start Date End Date Aamir Purcell MD PCP - General Family Medicine 08/12/22 documented as of this encounter
--- OUTSIDE RECORDS SUMMARY | 2024-10-05 11:01 | XMS_ITS | Encounter Summary ---
Author Organization [facility] Address [address] [place] [address] Care Team Providers Care Brake Liner Name Role Phone Aamir Purcell MD Primary Care Provider [phone] Encounter Details Date Type Department Care Team (Late st Contact Info) Description 03/31/2023 Orders Only [facility] [address] [facility] [address] [place] [address] A, Unknown Practice [address] [place] [address] Social History Tobacco Use Types Packs/Day Years [...] 12/27/2024 1:45 PM EST Office Visit [facility] [address] [place] [address] Adilson Johnson, DO [address] [place] [address] documented as of this encounter Procedures Procedure Name Priority Date/Time Associated Diagnosis Comments SCANNED LABS Routine 03/29/2023 1:07 PM EST documented in this encounter Results * SCANNED LABS (03/29/2023 1:07 PM EST) us Unknown Practice A LAB CHG PERFORMABLES Final Re sult documented in this encounter Visit Diagnoses Not on filedocumented in this encounter Care Teams Brake Liner Relationship Specialty Start Date End Date Aamir Purcell MD PCP - General Family Medicine 08/12/22 documented as of this encounter
--- OUTSIDE RECORDS SUMMARY | 2024-10-05 11:01 | XMS_ITS | Encounter Summary ---
Author Organization [facility] Address [address] [place] [address] Care Team Providers Care Medical Records Assistant Name Role Phone Aamir Purcell MD Primary Care Provider [phone] Encounter Details Date Type Department Care Team (Late st Contact Info) Description 05/05/2024 Abstract [facility] 112 [facility] 110 [place] [address] Unallocated, Noms MD [address] [place] [address] Social History Tobacco Use Types Packs/Day Years [...] 12/27/2024 1:45 PM EST Office Visit [facility] [address] [place] [address] Adilson Johnson, DO [address] [place] [address] documented as of this encounter Visit Diagnoses Not on filedocumented in this encounter Care Teams Medical Records Assistant Relationship Specialty Start Date End Date Aamir Purcell MD PCP - General Family Medicine 08/12/22 documented as of this encounter
--- OUTSIDE RECORDS SUMMARY | 2024-10-05 11:01 | XMS_ITS | Encounter Summary ---
Author Organization [facility] Address [address] [place] [address] Care Team Providers Care Emergency Dispatcher Name Role Phone Aamir Purcell MD Primary Care Provider [phone] Encounter Details Date Type Department Care Team (Late st Contact Info) Description 06/08/2024 Abstract [facility] [address] [facility] [address] [place] [address] Unallocated, Noms MD [address] [place] [address] Social History Tobacco Use Types Packs/Day Years [...] 12/27/2024 1:45 PM EST Office Visit [facility] Eye [address] [place] [address] Adilson Johnson, DO [address] [place] [address] documented as of this encounter Visit Diagnoses Not on filedocumented in this encounter Care Teams Emergency Dispatcher Relationship Specialty Start Date End Date Aamir Purcell MD PCP - General Family Medicine 08/12/22 documented as of this encounter
--- OUTSIDE RECORDS SUMMARY | 2024-10-05 11:01 | XMS_ITS | Encounter Summary ---
Author Organization [facility] enter Address [address] [place] [address] Care Team Providers Care Survey Field Technician Name Role Phone Aamir Purcell DO Primary Care Provider [phone] Adilson Hernandez MD Unavailable [phone] Kartik Mejia MD Unavailable [phone] Tisha Arriaga MD Unavailable Luis Miguel Kaur MD Unavailable [phone] Chris Zavala OD Unavailable Unavailable Reason for Visit * Reason Onset Date Comments Appointment 11/27/2018 Encounter Details Date Type Department Care Team (Late st Contact Info) Description 11/27/2018 Telephone Central Scheduling [address] [place] [address] Grace Washington MD [address] [facility] [address] [place] [address] Appointment Social History Tobacco Use [...] Assessment Author No 01/22/2018 3:10 PM Balbina Chandlre documented as of this encounter Mental Status [...] wants this taken care of now. Pt upsetand wants a records release sent to her. [...] on filedocumented in this encounter Care Teams Survey Field Technician Relationship Specialty Start Date End Date Aamir Purcell DO PCP - General Family Medicine 03/06/17 Adilson Hernandez MD [address] [place] [address] Ophthalmology 07/18/17 Kartik Mejia MD [address] [place] [address] Pain Medicine 12/25/17 Tisha Arriaga MD [address] [place] [address] Neurologist Neurology 07/18/17 Luis Miguel Kaur MD [address] [place] [address] Studio Associate Endocrinology, Diabetes & Metabolism 03/06/17 Chris Zavala, OD [address] [place] [address] Optometry 03/15/20 documented as of this encounter
--- OUTSIDE RECORDS SUMMARY | 2024-10-05 11:01 | XMS_ITS | Encounter Summary ---
Author Organization [facility] Address [address] [place] [address] Care Team Providers Care Computed Tomography Technician Name Role Phone Aamir Purcell MD Primary Care Provider [phone] Encounter Details Date Type Department Care Team (Late st Contact Info) Description 05/03/2024 Abstract [facility] 112 [facility] 110 [place] [address] Unallocated, Noms MD [address] [place] [address] Social History Tobacco Use Types Packs/Day Years [...] 12/27/2024 1:45 PM EST Office Visit [facility] Eye [address] [place] [address] Adilson Johnson, DO [address] [place] [address] documented as of this encounter Visit Diagnoses Not on filedocumented in this encounter Care Teams Computed Tomography Technician Relationship Specialty Start Date End Date Aamir Purcell MD PCP - General Family Medicine 08/12/22 documented as of this encounter
--- OUTSIDE RECORDS SUMMARY | 2024-10-05 11:01 | XMS_ITS | Encounter Summary ---
Author Organization [facility] Address [address] [place] [address] Care Team Providers Care Pediatric Clinical Nurse Specialist Name Role Phone Aamir Purcell MD Primary Care Provider [phone] Encounter Details Date Type Department Care Team (Late st Contact Info) Description 04/29/2024 Abstract [facility] 112 [facility] 110 [place] [address] Unallocated, Noms MD [address] [place] [address] Social History Tobacco Use Types Packs/Day Years [...] 12/27/2024 1:45 PM EST Office Visit [facility] Eye [address] [place] [address] Adilson oJhnson, DO [address] [place] [address] documented as of this encounter Visit Diagnoses Not on filedocumented in this encounter Care Teams Pediatric Clinical Nurse Specialist Relationship Specialty Start Date End Date Aamir Purcell MD PCP - General Family Medicine 08/12/22 documented as of this encounter
--- OUTSIDE RECORDS SUMMARY | 2024-10-05 11:01 | XMS_ITS | Encounter Summary ---
Author Organization [facility] Address [address] [place] [address] Care Team Providers Care Rat Breeder Name Role Phone Aamir Purcell MD Primary Care Provider [phone] Encounter Details Date Type Department Care Team (Late st Contact Info) Description 06/28/2024 Abstract [facility] 112 [facility] 110 [place] [address] Unallocated, Noms MD [address] [place] [address] Social History Tobacco Use Types Packs/Day Years [...] 12/27/2024 1:45 PM EST Office Visit [facility] Eye [address] [place] [address] Adilson Johnson, DO [address] [place] [address] documented as of this encounter Visit Diagnoses Not on filedocumented in this encounter Care Teams Rat Breeder Relationship Specialty Start Date End Date Aamir Purcell MD PCP - General Family Medicine 08/12/22 documented as of this encounter
--- OUTSIDE RECORDS SUMMARY | 2024-10-05 11:01 | XMS_ITS | Encounter Summary ---
Author Organization [facility] enter Address [address] [place] [address] Care Team Providers Care Finishing Operator Name Role Phone Aamir Purcell DO Primary Care Provider [phone] Adilson Hernandez MD Unavailable [phone] Kartik Mejia MD Unavailable [phone] Tisha Arriaga MD Unavailable Luis Miguel Kaur MD Unavailable [phone] Chris Zavala OD Unavailable Unavailable Reason for Visit * Reason Onset Date Comments Infusion Visit 06/15/2019 Encounter Details Date Type Department Care Team (Late st Contact Info) Description 06/15/2019 Telephone Neurology [facility] Outpatient Care [address] [place] [address] Mai Robles Infusion Visit Social [...] on filedocumented in this encounter Care Teams Finishing Operator Relationship Specialty Start Date End Date Binh AamirDO PCP - General Family Medicine 03/06/17 Adilson Hernandez MD [address] [place] [address] Ophthalmology 07/18/17 Kartik Mejia MD [address] [place] [address] Pain Medicine 12/25/17 Tisha Arriaga MD [address] [place] [id number] Neurologist Neurology 07/18/17 Luis Miguel Kaur MD [address] [place] [address] Bark Spudder Endocrinology, Diabetes & Metabolism 03/06/17 Chris Zavala, OD [address] [place] [address] Optometry 03/15/20 documented as of this encounter
--- OUTSIDE RECORDS SUMMARY | 2024-10-05 11:01 | XMS_ITS | Encounter Summary ---
Author Organization [facility] Address [address] [place] [address] Care Team Providers Care Funding Analyst Name Role Phone Aamir Purcell MD Primary Care Provider [phone] Encounter Details Date Type Department Care Team (Late st Contact Info) Description 03/11/2024 Abstract [facility] [address] [facility] 110 [place] [address] Unallocated, Noms MD Garrick [address] [place] [address] Social History Tobacco Use Types Packs/Day Years [...] 12/27/2024 1:45 PM EST Office Visit [facility] Eye [address] [place] [address] Adilson Johnson, DO [address] [place] [address] documented as of this encounter Visit Diagnoses Not on filedocumented in this encounter Care Teams Funding Analyst Relationship Specialty Start Date End Date Aamir Purcell MD PCP - General Family Medicine 08/12/22 documented as of this encounter
--- OUTSIDE RECORDS SUMMARY | 2024-10-05 11:01 | XMS_ITS | Encounter Summary ---
Author Organization [facility] enter Address [address] [place] [address] Care Team Providers Care Telegraph Mechanic Name Role Phone Aamir Purcell DO Primary Care Provider [phone] Adilson Hernandez MD Unavailable [phone] Kartik Mejia MD Unavailable [phone] Tisha Arriaga MD Unavailable Luis Miguel Kaur MD Unavailable [phone] Chris Zavala OD Unavailable Unavailable Reason for Visit * Reason Onset Date Comments Referral 04/16/2021 Encounter Details Date Type Department Care Team (Late st Contact Info) Description 04/16/2021 Telephone Neurology Outpatient [facility] [place] [address] [facility] [address] [place] [address] Gerald Richardson Referral Social History [...] States that she can be reached at [phone]. JDS * Telephone Encounter - Nurys Crow RN - 04/18/2021 10:42 AM EST Called pt, left voicemail to call the office. * Telephone Encounter - Gerald Richardson - 04/16/2021 9:04 AM EST Pt is calling to ask if Dr Mtz can place a referral for her to be seen in Hematology. # [phone] ABHINAV documented in this encounter Plan of Treatment Not on file documented as of this encounter Visit Diagnoses Not on filedocumented in this encounter Care Teams Telegraph Mechanic Relationship Specialty Start Date End Date Aamir Purcell DO PCP - General Family Medicine 03/06/17 Adilson Hernandez MD [address] [place] [address] Ophthalmology 07/18/17 Kartik Mejia MD [address] [place] [id number] Pain Medicine 12/25/17 Tisha Arriaga MD [address] [place] [address] Neurologist Neurology 07/18/17 Luis Miguel Kaur MD [address] [place] [address] Supervisor Briar Shop Endocrinology, Diabetes & Metabolism 03/06/17 Chris Zavala, ROGELIO [address] [place] [address] Optometry 03/15/20 documented as of this encounter
--- OUTSIDE RECORDS SUMMARY | 2024-10-05 11:01 | XMS_ITS | Encounter Summary ---
Author Organization [facility] Address [address] [place] [address] Care Team Providers Care Personnel Records Clerk Name Role Phone Aamir Purcell MD Primary Care Provider [phone] Encounter Details Date Type Department Care Team (Late st Contact Info) Description 12/05/2022 Clinisync Result Encounter [facility] External Department Unsolicited [place] Chávez, MATURITY CHECKER [address] [facility] 110 [place] [address] Social History Tobacco Use Types Packs/Day Years [...] 12/27/2024 1:45 PM EST Office Visit [facility] [address] [place] [address] Adilson Johnson, DO [address] [place] [address] documented as of this encounter Procedures Procedure [...] by: SINDY Technologist: TAMMIE us [place] Chávez MATURITY CHECKER [facility] Final Result documented in this encounter Visit Diagnoses Not on filedocumented in this encounter Care Teams Personnel Records Clerk Relationship Specialty Start Date End Date Aamir Purcell MD PCP - General Family Medicine 08/12/22 documented as of this encounter
--- OUTSIDE RECORDS SUMMARY | 2024-10-05 11:01 | XMS_ITS | Encounter Summary ---
Author Organization [facility] Address [address] [place] [address] Care Team Providers Care Guest Services Agent Name Role Phone BinhAamir DO Primary Care Provider [phone] Adilson Hernandez MD Unavailable [phone] Kartik Mejia MD Unavailable [phone] Tisha Arriaga MD Unavailable Luis Miguel Kaur MD Unavailable [phone] Chris Zavala OD Unavailable Unavailable Encounter Details Date Type Department Care Team (Late st Contact Info) Description 02/16/2015 Telephone Neurology [facility] Outpatient Care [address] [place] [address] [place] [address] Clark Duncan Social History Tobacco [...] on filedocumented in this encounter Care Teams Guest Services Agent Relationship Specialty Start Date End Date Aamir Purcell DO PCP - General Family Medicine 03/06/17 Adilson Hernandez MD [address] [place] [address] Ophthalmology 07/18/17 Kartik Mejia MD [address] [place] [address] Pain Medicine 12/25/17 Tisha Arriaga MD [address] [place] [phone] Neurologist Neurology 07/18/17 Luis Miguel Kaur MD [address] [place] [address] Dot Compliance Specialist Endocrinology, Diabetes & Metabolism 03/06/17 Chris Zavala, OD [address] [place] [address] Optometry 03/15/20 documented as of this encounter
--- OUTSIDE RECORDS SUMMARY | 2024-10-05 11:01 | XMS_ITS | Encounter Summary ---
Author Organization [facility] Address [address] [place] [address] Care Team Providers Care Quad Stayer Name Role Phone Aamir Purcell DO Primary Care Provider [phone] Adilson Hernandez MD Unavailable [phone] Kartik Mejia MD Unavailable [phone] Tisha Arriaga MD Unavailable Luis Miguel Kaur MD Unavailable [phone] Chris Zavala OD Unavailable Unavailable Encounter Details Date Type Department Care Team (Late st Contact Info) Description 07/05/2019 Telephone Infusion [facility] Outpatient Care [address] [place] [address] Nahomy Fenton, VIRGIE Social History [...] Comorbidity, call the COVID-19 Call Center at [phone] withAttending approval ? Comorbidity: Age >60: No [...] on filedocumented in this encounter Care Teams Quad Stayer Relationship Specialty Start Date End Date Aamir Purcell DO PCP - General Family Medicine 03/06/17 Adilson Hernandez MD [address] [place] [address] Ophthalmology 07/18/17 Kartik Mejia MD [address] [place] [address] Pain Medicine 12/25/17 Tisha Arriaga MD [address] [place] [phone] Neurologist Neurology 07/18/17 Luis Miguel Kaur MD [address] [place] [address] Marine Insulator Endocrinology, Diabetes & Metabolism 03/06/17 Chris Zavala, OD [address] [place] [address] Optometry 03/15/20 documented as of this encounter
--- OUTSIDE RECORDS SUMMARY | 2024-10-05 11:01 | XMS_ITS | Encounter Summary ---
Author Organization [facility] enter Address [address] [place] [address] Care Team Providers Care Director Perioperative Name Role Phone Aamir Purcell DO Primary Care Provider [phone] Adilson Hernandez MD Unavailable [phone] Kartik Mejia MD Unavailable [phone] Tisha Arriaga MD Unavailable Luis Miguel Kaur MD Unavailable [phone] Chris Zavala OD Unavailable Unavailable Reason for Visit * Reason Onset Date Comments Other 11/26/2018 Encounter Details Date Type Department Care Team (Late st Contact Info) Description 11/26/2018 Telephone Central Scheduling [address] [place] [address] Grace [place] MD [address] [facility] [address] [place] [address] Other Social History Tobacco Use [...] of Assessment Author No 01/22/2018 3:10 PM Balibna Chandler documented as of this encounter Mental [...] if Dr. [place] has talked to her boilers and pressure vessels inspector Dr. Ferguson yet? She states she needs [...] filedocumented in this encounter Care Teams Director Perioperative Relationship Specialty Start Date End Date Aamir Purcell DO PCP - General Family Medicine 03/06/17 Adilson Hernandez MD [address] [place] [address] Ophthalmology 07/18/17 Kartik Mejia MD [address] [place] [address] Pain Medicine 12/25/17 Tisha Arriaga MD [address] [place] [address] Neurologist Neurology 07/18/17 Luis iMguel Kaur MD [address] [place] [address] Set Designer Endocrinology, Diabetes & Metabolism 03/06/17 Chris Zavala, OD [address] [place] [address] Optometry 03/15/20 documented as of this encounter
--- OUTSIDE RECORDS SUMMARY | 2024-10-05 11:01 | XMS_ITS | Encounter Summary ---
Author Organization [facility] Address [address] [place] [address] Care Team Providers Care Conveyor Feeder Name Role Phone Aamir Purcell MD Primary Care Provider [phone] Encounter Details Date Type Department Care Team (Late st Contact Info) Description 04/09/2024 Abstract [facility] 112 [facility] 110 [place] [address] Unallocated, Noms MD Garrick [address] [place] [address] Social History Tobacco Use Types Packs/Day Years [...] 12/27/2024 1:45 PM EST Office Visit [facility] [address] [place] [address] Adilson Johnson, DO [address] [place] [address] documented as of this encounter Visit Diagnoses Not on filedocumented in this encounter Care Teams Conveyor Feeder Relationship Specialty Start Date End Date Aamir Purcell MD PCP - General Family Medicine 08/12/22 documented as of this encounter
--- OUTSIDE RECORDS SUMMARY | 2024-10-05 11:01 | XMS_ITS | Clinical Summary ---
Author Organization [facility] Healthcare Address [address] [place] [address] Care Team Providers Care Floor Scrubber Name Role Phone Aamir Purcell MD Primary Care Provider [phone] Allergies Active Allergy Reactions Criticality Noted Date Comments Cephalexin Hives,Itching,Unknow n,Rash,Swelling High 12/02/2011 burning Moxifloxacin Itching,Unknown,Rash ,Swelling High 12/02/2011 Abdominal pain Peg 3634-Wgh-Tdrki-Nacl-Mello ulf High 10/28/2016 Tapentadol Unknown High 02/04/2014 [...] at the same time Active HYDROcodone-felicita taminophen ([place]) 5-325 MG tablet Take 1 tablet by [...] Encounters Date Type Department Care Team Description 09/27/2024 1:15 PM EDT Office Visit [facility] Eye [address] [facility] [address] [place] [address] Adilson Johnson, Primary open angle glaucoma (POAG) of both eyes, moderate stage (Primary Dx); 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 mellitus (HCC); Left posterior capsular opacification; Dry eyes 09/27/2024 Bamboo flowsheet [facility] [address] [facility] [place] [address] Adilson Johnson DO 09/27/2024 Travel 09/07/2024 Results Follow-Up [facility] [address] [place] [address] Ramona Campuzano PA Aerobic culture, RESULT 08/27/2024 10:30 AM EDT Office Visit [facility] [place] [facility] [address] [place] [address] Ramona Campuzano PA Other atopic dermatitis (Primary Dx); Traumatic ulcer of left foot, unspecified ulcer stage (HCC); Impetigo 08/27/2024 Orders Only N[facility]S External Department Unsolicited Ramona Campuzano PA 08/27/2024 Bamboo flowsheet [facility] [address] [place] [address] Ramona Campuzano PA 08/27/2024 Travel 08/24/2024 Abstract [facility] [address] [facility] 110 [place] [address] Unallocated, Katja Mccauley MD 08/16/2024 Abstract [facility] [address] [facility] 110 [place] [address] Aamir Purcell MD 08/10/2024 Clinisync Result Encounter NOMS External Department Unsolicited Provider, Generic External Data 08/10/2024 Clinisync Result Encounter NOMS External Department Unsolicited Provider, Generic External Data 08/09/2024 Abstract [facility] [address] [facility] 110 [place] [address] Unallocated, Nomlatosha Mccauley MD from Last 3 Months Social [...] 12/27/2024 1:45 PM EST Office Visit [facility] Eye [address] [place] [address] Adilson Johnson DO [address] [place] [address] Procedures Procedure Name Priority Date/Time Associated Diagnosis Comments TRINIDAD VISUAL FIELD - OU - BOTH EYES Routine 09/27/2024 1:41 PM EDT Primary open angle glaucoma (POAG) of both eyes, moderate stage RESULT Routine 08/27/2024 12:00 AM EDT CULTURE, AEROBIC BACTERIA Routine 08/27/2024 12:00 AM EDT SEGMENTAL BLOOD PRESSURE 08/10/2024 3:48 PM EDT XR FOOT SAMANTHA MIN 3 VIEWS 08/10/2024 12:04 PM EDT from Last 3 Months Results * Trinidad Visual Field - OU [...] nasal step defect, inferior nasal step defect. us Adilson Johnson DO OPHTH VISUAL FIELD Final Re sult * (ABNORMAL) RESULT (08/27/2024 12:00 AM EDT) [...] may be warranted if clinically indicated. (CLSI [id number]) Light growth RESULT 2 Staphylococcus aureus(A) [facility] [...] - 09/06/2024 11:07 AM EDT Performed at: [address] [place] [address], [place] [id number] Automation Qa Analyst: Angel Jacobs PhD, Phone: [phone] Ramona CESPEDES LAB BLOOD ORDERABLES Final Res ult Performing Organization Address [facility] Co de Phone Number [facility] * (ABNORMAL) Aerobic culture (08/27/2024 12:00 AM EDT) CULTURE, AEROBIC BACTERIA Final report(A) [facility] 08/27/2024 08/27/2024 Narrative [facility] - 09/06/2024 11:07 AM EDT Performed at: 01 - [facility] [id number] Automation Qa Analyst: Angel Jacobs PhD, Phone: [phone] Ramona CESPEDES LAB MICROBIOLOGY - GENERAL ORD ERABLES Final Result Performing Organization Address [facility] de Phone Number [facility] * SEGMENTAL BLOOD PRESSURE (08/10/2024 3:48 PM EDT) Anatomical Region Laterality Modality Radiographic Kathie ging 08/10/2024 3:48 PM EDT Narrative 08/10/2024 10:07 [place] [address] Cardiology Report Signed Patient: CLEO GEORGES MR#: [id number] : 1965 Acct:[id number] Age/Sex: 59 / F ADM Date: 08/10/24 Loc: CARD Attending Dr: Kailee CESPEDES Ordering Physician: Kailee Lopez Date of Service: 08/10/24 Procedure(s): CA segmental UE or LE SAMANTHA Accession Number(s): [id number] cc: MAHIN BERNAL ; Kailee Lopez The [facility] Test Date: 2024-08-10 Pat Name: CLEO GEORGES Department: Room: - Gender: Female Construction Equipment Overhauler: : 1965 Requested By: Kailee Lopez Order Number: [id number] Zack MD: FELIPA ALANIS M.D. Interpretive Statements [...] ALANIS Signed By: 08/10/24220608/10/242206 DD/ 1548 TD/TT: Resistor Tester: Procedure Note Radiology, Radiologist, MD - 08/10/2024 [place] [address] Cardiology Report Signed Patient: CLEO GEORGES LMR#: [id number] : 1965Acct:[id number] Age/Sex: 59 / FADM Date: 08/10/24 Loc: CARD Attending Dr: Kailee CESPEDES Ordering Physician: Kailee Lopez Date of Service: 08/10/24 Procedure(s): CA segmental UE or LE SAMANTHA Accession Number(s): [id number] cc: MAHIN BERNAL The [facility] Test Date: 2024-08-10 Pat Name: CLEO GEORGES Department: Room: - 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 Interpretive Statements [...] Dictated By: FELIPA ALANIS Signed By:08/10/24220608/10/242206 DD/ 154 TD/TT: Resistor Tester: us Generic External Data Provider IMG XR PROCEDURES Final Result * XR FOOT SAMANTHA MIN 3 VIEWS (08/10/2024 12:04 PM EDT) Anatomical Region Laterality Modality Other 08/10/2024 12:0 4 PM EDT Narrative 08/10/2024 12:07 PM EDT [address] [address] XRay Report Signed Patient: CLEO GEORGES MR#: [id number] : 1965 Acct:[id number] Age/Sex: 59 / F ADM Date: 08/10/24 Loc: CARD Attending Dr: Kailee CESPEDES Ordering Physician: Kailee Lopez Date of Service: 08/10/24 Procedure(s): XR foot SAMANTHA min 3V Accession Number(s): [id number] cc: MAHIN BERNAL ; Kailee Lopez [address] [address] Patient Name: CLEO GEORGES MRN: [id number] date: 1965 Sex: F Assigned Patient Location: CARD Current Patient Location: CARD Accession/Order Number: [id number] Exam Date: 08/10/2024 11:59 Report Date: 08/10/2024 [...] Crews M.D. 08/10/2024 12:04 PM Dictation Location: [place] [address] Electronically authenticated by: [id number] Y Date: 08/10/2024 12:04 Dictated By: Misa Crews M.D. Signed By: 08/10/24 1207 DD/ 1204 TD/TT: Resistor Tester: Procedure Note Radiology, Radiologist, - 08/10/2024 [place] [address] XRay Report Signed Patient: CLEO GEORGES LMR#: [id number] : 1965Acct:[id number] Age/Sex: 59 / FADM Date: 08/10/24 Loc: CARD Attending Dr: Kailee CESPEDES Ordering Physician: Kailee Lopez Date of Service: 08/10/24 Procedure(s): XR foot SAMANTHA min 3V Accession Number(s): [id number] cc: MAHIN BERNAL ; Kailee Lopez [place] [address] Patient Name: CLEO GEORGES MRN: [id number] date: 1965 Sex: F Assigned Patient Location: CARD Current Patient Location: CARD Accession/Order Number: [id number] Exam Date: 08/10/2024 11:59 Report Date: 08/10/2024 12:04 At the request of: KAIELE CESPEDES Procedure: XR foot SAMANTHA min 3V [...] Crews M.D. 08/10/2024 12:04 PM Dictation Location: [place] [address] Electronically authenticated by: [id number] Y Date: 2:04 Dictated By: Misa Crews M.D. Signed By:08/10/24 1207 DD/ 1204 TD/TT: Resistor Tester: Generic External Data Provider [facility] Final Result from Last 3 Months Insurance MEDICARE [facility] MEDICAID [place] Care Teams Floor Scrubber Relationship Specialty Start Date End Date Aamir Purcell MD PCP - General Family Medicine 08/12/22
--- OUTSIDE RECORDS SUMMARY | 2024-10-05 11:01 | XMS_ITS | Clinical Summary ---
Author Organization [facility] Address [address] [place], [place] [id number] Care Team Providers Care Streetcar Operator Name Role Phone Basilia Tobias Lars PALACIOS Primary Care Provider Allergies Active Allergy Reactions Criticality Noted Date Comments Moxifloxacin Rash,Swelling,Itching 03/23/2015 Cephalexin Hives,Swelling,Itching 03/23/2015 Tapentadol Mental Status Change 10/31/2015 Medications metFORMIN (GLUCOPHAGE) 1,000 mg tablet Take 1,000 mg by mouth twice daily with meals. Active HYDROcodone-felictia taminophen ([place]) 5-325 mg per tablet Take [...] - 5.6 % 03/23/2015 10:11 PM EST [facility] Comment: [place] Diabetes Association guidelines indicate that patients with HgbA1c in the range 5.7-6.4% are at increased risk for development of diabetes, and intervention by lifestyle modification may be beneficial. HgbA1c greater or equal to 6.5% is considered diagnostic of diabetes. Estimated Average Glucose >240 mg/dL 03/23/2015 10:11 PM EST [facility] Comment: eAG: (Estimated average glucose) is a calculated value from HgbA1c and is real estate representative of the average blood glucose level in the last 2-3 month period. Blood specimen (specimen) WHOLE BLOOD SPECIMEN / Unknown 03/23/2015 2:21 PM EST 03/23/2015 2:26 PM EST [facility]ve [facility] LABORAT[facility] Final Result [facility] [address] [place] [address] from Last 3 Months or Most Recently Relevant to Health Maintenance Insurance MEDICARE Care Teams Streetcar Operator Relationship Specialty Start Date End Date Tobias Cui DO PCP - General Family Medicine 02/13/15
--- OUTSIDE RECORDS SUMMARY | 2024-10-05 11:01 | XMS_ITS | Encounter Summary ---
Author Organization [facility] Address [address] [place] [address] Care Team Providers Care Compensation Consulting Manager Name Role Phone Aamir Purcell MD Primary Care Provider [phone] Encounter Details Date Type Department Care Team (Late st Contact Info) Description 05/10/2024 Abstract [facility] 112 [facility] 110 [place] [address] Unallocated, Noms MD Garrick [address] [place] [address] Social History Tobacco Use Types Packs/Day Years [...] 12/27/2024 1:45 PM EST Office Visit [facility] [address] [place] [address] Adilson Johnson, DO [address] [place] [address] documented as of this encounter Visit Diagnoses Not on filedocumented in this encounter Care Teams Compensation Consulting Manager Relationship Specialty Start Date End Date Aamir Purcell MD PCP - General Family Medicine 08/12/22 documented as of this encounter
--- OUTSIDE RECORDS SUMMARY | 2024-10-05 11:01 | XMS_ITS | Encounter Summary ---
Author Organization [facility] Address [address] [place] [address] Care Team Providers Care Drapery Hanger Name Role Phone Aamir Purcell MD Primary Care Provider [phone] Encounter Details Date Type Department Care Team (Late st Contact Info) Description 12/13/2022 Clinisync Result Encounter [facility] External Department Unsolicited Maine Chávez, PLASTIC SURGERY SPECIALIST [address] [facility] [address] [place] [address] Social History Tobacco Use Types Packs/Day Years [...] 12/27/2024 1:45 PM EST Office Visit [facility] [address] [place] [address] Adilson Johnson, DO [address] [place] [address] documented as of this encounter Procedures Procedure [...] by: SINDY Technologist: ANGÉLICA us Maine Chávez PLASTIC SURGERY SPECIALIST [facility] Final Result documented in this encounter Visit Diagnoses Not on filedocumented in this encounter Care Teams Drapery Hanger Relationship Specialty Start Date End Date Aamir Purcell MD PCP - General Family Medicine 08/12/22 documented as of this encounter
--- OUTSIDE RECORDS SUMMARY | 2024-10-05 11:01 | XMS_ITS | Encounter Summary ---
Author Organization [facility] Address [address] [place] [address] Care Team Providers Care Pension Manager Name Role Phone Aamir Purcell MD Primary Care Provider [phone] Encounter Details Date Type Department Care Team (Late st Contact Info) Description 11/25/2022 Orders Only [facility] 112 [facility] 110 [place] [address] A, Unknown Practice [address] [place] [address] Social History Tobacco Use Types Packs/Day Years [...] 12/27/2024 1:45 PM EST Office Visit [facility] Eye [address] [place] [address] Adilson Johnson, DO [address] [place] [address] documented as of this encounter Procedures Procedure Name Priority Date/Time Associated Diagnosis Comments SCANNED LABS Routine 11/23/2022 9:24 AM EDT documented in this encounter Results * SCANNED LABS (11/23/2022 9:24 AM EDT) us Unknown Practice A LAB CHG PERFORMABLES Final Re sult documented in this encounter Visit Diagnoses Not on filedocumented in this encounter Care Teams Pension Manager Relationship Specialty Start Date End Date Aamir Purcell MD PCP - General Family Medicine 08/12/22 documented as of this encounter
--- OUTSIDE RECORDS SUMMARY | 2024-10-05 11:01 | XMS_ITS | Clinical Summary ---
Author Organization [facility] Address [address] [facility], [address] [place] [address] Care Team Providers Care Fee Clerk Name Role Phone Migue Cole MD Primary Care Provider [phone] Allergies Active Allergy Reactions Criticality Noted Date Comments Moxifloxacin Hydrochloride Rash Low 12/02/2011 Cephalexin Rash Low 12/02/2011 Moxifloxacin Rash High 10/28/2016 Peg 6265-Tkk-Wnawm-Nacl-Nasu lf High 10/28/2016 Tapentadol Other (See Comments) [...] this topic Medical Devices Implanted Type Area Improvement Spec Device Identifier Shelf Expiration Date Model / Serial / Lot System Spnl Seal 3ml Exact Duraseal - [id number] Implanted:Qty: 1 on 07/06/2021 by Ban Cevallos DO at [facility] N/A: Spine Cervical [employer] BRETT-WD 09/27/2022 [id number] / / Kit Bne Grft Xsm 1.4cc Rhbmp-2 Absrb Cllgn Spng Infuse - [id number] Implanted:Qty: 1 on 09/25/2021 by Ban Cevallos DO at [facility] N/A: Spine Cervical [employer] SPINALGRAFT TECH-WD 02/16/2023 [id number] / [id number] / [id number] G Graft Cellr Bne Matrx Influx Sparc 5cc - [id number] Implanted:Qty: 1 on 09/25/2021 by Ban Cevallos DO at [facility] N/A: Spine Cervical [employer]-WD 05/04/2023 [id number] / [id number] / [id number] Graft Cellr Bne Matrx Influx Sparc 5c - [id number] Implanted:Qty: 1 on 09/25/2021 by Ban Cevallos DO at [facility] N/A: Spine Cervical [employer]-WD 05/04/2023 [id number] / [id number] / [id number] Screw Spnl L34mm [id number] Occipitocervical Up Thor Multiaxial - [id number] Implanted:Qty: 2 on 09/25/2021 by Ban Cevallos DO at [facility] N/A: Spine Cervical [employer] SOFAMOR DANEK-WD [id number] / / Bishnu Spnl L25mm Dia3.5mm Occipitocervical Up Thor Precut - [id number] Implanted:Qty: 2 on 09/25/2021 by Ban Cevallos DO at [facility] N/A: Spine Cervical [employer] SOFAMOR DANEK-WD [id number] / / Set Screw Spinal M6 - [id number] Implanted:Qty: 4 on 09/25/2021 by Ban Cevallos DO at [facility] N/A: Spine Cervical [employer] SOFAMOR DANEK-WD [id number] / / Procedures Procedure Name Priority Date/Time [...] body mass. Additional eGFR calculator available at: http://[email or web address].basno/multiple_crcl_[email or web address].htm BLOOD SPECIMEN / Unknown 09/27/2021 2:38 AM EDT 09/27/2021 2:42 AM EDT Darleen Carmona MD CHEMISTRY ORDERABLES Edited Resu lt - Final Performing Organization Address [facility] Co de Phone Number [facility] [address] [place] [address] * Hemoglobin A1C (09/09/2021 7:34 AM EDT) Hemoglobin A1C 5.1 4.0 - 6.0 % 09/09/2021 7:34 AM EDT [facility] Estimated Avg Glucose 100 mg/dL 09/09/2021 7:34 AM EDT [facility] Comment: The ADA and AACC recommend providing the estimated average glucose result to permit better patient understanding of their HBA1c result. 09/09/2021 7:34 AM EDT 09/09/2021 8:11 AM EDT Chris Lassiter MD CHEMISTRY ORDERABLES Final Resul t Performing Organization Address [facility] Co de Phone Number [facility] [address] [place] [address] * (ABNORMAL) OCCULT BLOOD SCREEN (07/24/2021 2:30 PM EDT) Pathologist [facility] Occult Blood, Stool #1 POSITIVE( A) NEGATIVE 07/24/2021 2:30 PM EDT [facility] Date, Stool #1 [phone] 07/24/2021 2:30 PM EDT [facility] Time, Stool #1 [id number] 07/24/2021 2:30 PM EDT [facility] STOOL SPECIMEN / Unknown 07/24/2021 2:30 PM EDT 07/25/2021 12:13 AM EDT Xin Grove MD BODY FLUIDS AND STOOLS ORDERABLE S Final Result Performing Organization Address [facility] Co de Phone Number [facility] [address] [place] [address] * LIPID PANEL (06/28/2021 9:38 PM EDT) Pathologist [facility] Cholesterol 155 <200 mg/dL 06/28/2021 9:38 PM EDT [facility] Comment: Cholesterol Guidelines: <200 Desirable 200-240 Borderline >240 Undesirable HDL 71 >40 mg/dL 06/28/2021 9:38 PM EDT [facility] Comment: HDL Guidelines: <40 Undesirable 40-59 Borderline >59 Desirable LDL Cholesterol 63 0 - 130 mg/dL 06/28/2021 9:38 PM EDT [facility] Comment: LDL Guidelines: <100 Desirable 100-129 Near to/above Desirable 130-159 Borderline >159 Undesirable Direct (measured) LDL and calculated LDL are not interchangeable tests. Chol/HDL Ratio 2.2 <5 06/28/2021 9:38 PM EDT [facility] Comment: Triglycerides 105 <150 mg/dL 06/28/2021 9:38 PM EDT [facility] Comment: Triglyceride Guidelines: <150 Desirable 150-199 Borderline 200-499 High >499 Very high Based on AHA Guidelines for fasting triglyceride, November 2011. BLOOD SPECIMEN / Unknown 06/28/2021 9:38 PM EDT 06/28/2021 9:38 PM EDT Jenifer Jewell MD CHEMISTRY ORDERABLES Final Result [facility] [address] [place] [address] * Microalbumin, Ur (06/25/2013 7:05 AM EDT) Albumin Urine 12 <21 mg/L 06/25/2013 9:11 PM EDT [facility] Creatinine, Ur 166.1 39.0 - 259.0 mg/dL 06/25/2013 9:11 PM EDT [facility] Comment: The reference range and other method performance specifications have not been established for this body fluid. The test result must be integrated into the clinical context for interpretation. Microalb/Prop Maker. Ratio 7 mcg/mg creat 06/25/2013 9:11 PM EDT [facility] Urine Microalbumin Interp 06/25/2013 9:11 PM EDT [facility] Comment: REFERENCE RANGE NORMAL = 0 - 13 mcg/mg creat BORDERLINE = 14 - 30 mcg/mg creat ABNORMAL = >30 mcg/mg creat Performed at [facility] [address] [place] [address] ([phone] 06/25/2013 7:05 AM EDT 06/25/2013 7:06 AM EDT us Tobias Cui MD URINE ORDERABLES Edited Resu lt - Final [facility] [address] [place] [address], [facility] [phone] [facility] from Last 3 Months or Most Recently Relevant to Health Maintenance Insurance MEDICARE [facility] [place]ICAID [place] MEDICARE MEDICARE Member Subscriber Plan / Payer (Ef fective 2002-Present) Name:Cleo Georges Relation to Subscriber:Self Name:Cleo Georges Payer ID:Not on file Group ID:Not on file Type:Not on file Address: [address] Advance Directives Documents on File Type Date Recorded Patient Scallop Cutter Expl anation ACP-Advance Directive 08/13/2021 4:27 PM [...] Supplemental (Ot her) Decision Maker Care Teams Fee Clerk Relationship Specialty Start Date End Date Migue Cole MD [address] [place] [address] PCP - General Internal Medicine 08/14/21
--- OUTSIDE RECORDS SUMMARY | 2024-10-05 11:01 | XMS_ITS | Encounter Summary ---
Author Organization [facility] Address [address] [place] [address] Care Team Providers Care Fish House Worker Name Role Phone Aamir Purcell DO Primary Care Provider [phone] Adilson Hernandez MD Unavailable [phone] Kartik Mejia MD Unavailable [phone] Tisha Arriaga MD Unavailable Luis Miguel Kaur MD Unavailable [phone] Chris Zavala OD Unavailable Unavailable Encounter Details Date Type Department Care Team (Late st Contact Info) Description 07/19/2019 Telephone Infusion [facility] Care [address] [place] [address] Nahomy Fenton, VIRGIE Social History [...] Comorbidity, call the COVID-19 Call Center at [phone] withAttending approval ? Comorbidity: Age >60: No [...] on filedocumented in this encounter Care Teams Fish House Worker Relationship Specialty Start Date End Date Aamir Purcell DO PCP - General Family Medicine 03/06/17 Adilson Hernandez MD [address] [place] [address] Ophthalmology 07/18/17 Kartik Mejia MD [address] [place] [address] Pain Medicine 12/25/17 Tisha Arriaga MD [address] [place] [id number] Neurologist Neurology 07/18/17 Luis Miguel Kaur MD [address] [place] [address] Therapeutic Recreation Specialist Endocrinology, Diabetes & Metabolism 03/06/17 Chris Zavala, OD [address] [place] [address] Optometry 03/15/20 documented as of this encounter
--- OUTSIDE RECORDS SUMMARY | 2024-10-05 11:01 | XMS_ITS | Encounter Summary ---
Author Organization [facility] Address [address] [place] [address] Care Team Providers Care Votator Machine Operator Name Role Phone Aamir Purcell MD Primary Care Provider [phone] Encounter Details Date Type Department Care Team (Latest Contact Info) Description 09/27/2024 Travel Social History Tobacco Use Types Packs/Day [...] 12/27/2024 1:45 PM EST Office Visit [facility] Eye [address] [place] [address] Adilson Johnson, DO [address] [place] [address] documented as of this encounter Visit Diagnoses Not on filedocumented in this encounter Care Teams Votator Machine Operator Relationship Specialty Start Date End Date Aamir Purcell MD PCP - General Family Medicine 08/12/22 documented as of this encounter
--- OUTSIDE RECORDS SUMMARY | 2024-10-05 11:01 | XMS_ITS | Encounter Summary ---
Author Organization [facility] Address [address] [place] [address] Care Team Providers Care Roll Edge Machine Operator Name Role Phone Aamir Purcell DO Primary Care Provider [phone] Adilson Hernandez MD Unavailable [phone] Kartik Mejia MD Unavailable [phone] Tisha Arriaga MD Unavailable Luis Miguel Kaur MD Unavailable [phone] Chris Zavala OD Unavailable Unavailable Reason for Visit * Reason Onset Date Comments Reschedule 11/29/2020 Encounter Details Date Type Department Care Team (Late st Contact Info) Description 11/29/2020 Telephone Central Scheduling [address] [place] [address] Jeremy Hernandez MD [address] [facility] [place] [place] [address] Reschedule Social History Tobacco Use [...] on filedocumented in this encounter Care Teams Roll Edge Machine Operator Relationship Specialty Start Date End Date Aamir Purcell DO PCP - General Family Medicine 03/06/17 Adilson Hernandez MD [address] [place] [address] Ophthalmology 07/18/17 Kartik Mejia MD [address] [place] [address] Pain Medicine 12/25/17 Tisha Arriaga MD [address] [place] [address] Neurologist Neurology 07/18/17 Luis Miguel Kaur MD [address] [place] [address] Book Sewer Endocrinology, Diabetes & Metabolism 03/06/17 Chris Zavala, OD [address] [place] [address] Optometry 03/15/20 documented as of this encounter
--- OUTSIDE RECORDS SUMMARY | 2024-10-05 11:01 | XMS_ITS | Encounter Summary ---
Author Organization [facility] Address [address] [place] [address] Care Team Providers Care Bread Slicer Machine Name Role Phone Aamir Purcell DO Primary Care Provider [phone] Adilson Hernandez MD Unavailable [phone] Kartik Mejia MD Unavailable [phone] Tisha Arriaga MD Unavailable Luis Miguel Kaur MD Unavailable [phone] Chris Zavala OD Unavailable Unavailable Encounter Details Date Type Department Care Team (Late st Contact Info) Description 07/19/2019 Telephone Infusion [facility] Outpatient Care [address] [place] [address] Nahomy Fenton, VIRGIE Social History [...] on filedocumented in this encounter Care Teams Bread Slicer Machine Relationship Specialty Start Date End Date BinhAamir PCP - General Family Medicine 03/06/17 Adilson Hernandez MD [address] [place] [address] Ophthalmology 07/18/17 Kartik Mejia MD [address] [place] [address] Pain Medicine 12/25/17 Tisha Arriaga MD [address] [place] [address] Neurologist Neurology 07/18/17 Luis Miguel Kaur MD [address] [place] [id number] Manager Hospitality Endocrinology, Diabetes & Metabolism 03/06/17 Chris Zavala, OD [address] [place] [address] Optometry 03/15/20 documented as of this encounter
--- OUTSIDE RECORDS SUMMARY | 2024-10-05 11:01 | XMS_ITS | Encounter Summary ---
Author Organization [facility] Address [address] [place] [address] Care Team Providers Care Forensic Scientist Name Role Phone Aamir Purcell MD Primary Care Provider [phone] Encounter Details Date Type Department Care Team (Late st Contact Info) Description 04/19/2024 [facility] [address] [place] [address] Unallocated, Noms MD Garrick [address] [place] [address] Social History Tobacco Use Types Packs/Day Years [...] 12/27/2024 1:45 PM EST Office Visit [facility] [address] [place] [address] Adilson Johnson, DO [address] [place] [address] documented as of this encounter Visit Diagnoses Not on filedocumented in this encounter Care Teams Forensic Scientist Relationship Specialty Start Date End Date Aamir Purcell MD PCP - General Family Medicine 08/12/22 documented as of this encounter
--- OUTSIDE RECORDS SUMMARY | 2024-10-05 11:02 | XMS_ITS | Encounter Summary ---
Author Organization [facility] Address [address] [place] [address] Care Team Providers Care Operations Intern Name Role Phone Aamir Purcell MD Primary Care Provider [phone] Encounter Details Date Type Department Care Team (Late st Contact Info) Description 08/24/2024 Abstract [facility] 112 [facility] [address] [place] [address] Unallocated, Noms MD Garrick [address] [place] [address] Social History Tobacco Use Types Packs/Day Years [...] 12/27/2024 1:45 PM EST Office Visit [facility] Eye [address] [place] [address] Adilson Johnson, DO [address] [place] [address] documented as of this encounter Visit Diagnoses Not on filedocumented in this encounter Care Teams Operations Intern Relationship Specialty Start Date End Date Aamir Purcell MD PCP - General Family Medicine 08/12/22 documented as of this encounter
--- OUTSIDE RECORDS SUMMARY | 2024-10-05 11:02 | XMS_ITS | Encounter Summary ---
Author Organization [facility] Address [address] [place] [address] Care Team Providers Care Timber Selector Name Role Phone Aamir Purcell MD Primary Care Provider [phone] Encounter Details Date Type Department Care Team (Late st Contact Info) Description 08/16/2024 Abstract [facility] [address] [facility] [address] [place] [address] Aamir Purcell MD [address] [place] [address] Social History Tobacco Use Types Packs/Day Years [...] 12/27/2024 1:45 PM EST Office Visit [facility] [address] [place] [address] Adilson Johnson, DO [address] [place] [address] documented as of this encounter Visit Diagnoses Not on filedocumented in this encounter Care Teams Timber Selector Relationship Specialty Start Date End Date Aamir Purcell MD PCP - General Family Medicine 08/12/22 documented as of this encounter
--- OUTSIDE RECORDS SUMMARY | 2024-10-05 11:02 | XMS_ITS | Encounter Summary ---
Author Organization [facility] Address [address] [place] [address] Care Team Providers Care Auto Radiator Mechanic Name Role Phone Aamir Purcell MD Primary Care Provider [phone] Encounter Details Date Type Department Care Team (Late st Contact Info) Description 10/27/2021 Lab Requisition [facility] Lab [address] [place] [address] Migue Cole MD [address] [address] Social History Tobacco Use Types Packs/Day Years [...] - 48.0 % 10/27/2021 8:48 PM EDT [facility] (GET[facility]) Blood Venous blood specimen / Unknown 10/27/2021 7:21 PM EDT 10/27/2021 7:22 PM EDT us Migue Cole MD LAB BLOOD ORDERABLES Final Result [facility] ([facility]) [address] [place] [address] * (ABNORMAL) Hemoglobin (10/27/2021 7:21 PM EDT) Hemoglobin 10.7(L) 12.0 - 15.0 g/dL 10/27/2021 8:49 PM EDT [facility] ([facility]) Blood Venous blood specimen / Unknown 10/27/2021 7:21 PM EDT 10/27/2021 7:22 PM EDT Migue Cole MD LAB BLOOD ORDERABLES Final Result Performing Organization Address [facility] Co de Phone Number [facility] [address] [place], [place] [phone] documented in this encounter Visit Diagnoses Not on filedocumented in this encounter Care Teams Auto Radiator Mechanic Relationship Specialty Start Date End Date Aamir Purcell MD [address] [place] [address] PCP - General 10/19/21 documented as of this encounter
--- OUTSIDE RECORDS SUMMARY | 2024-10-05 11:02 | XMS_ITS | Clinical Summary ---
Author Organization [facility] Address [address] [place] [address] Care Team Providers Care Car Dispatcher Name Role Phone Aamir Purcell DO Primary Care Provider [phone] Allergies Active Allergy Reactions Criticality Noted Date [...] series) 2038 Medical Devices Implanted Type Area Ship Boss Device Identifier Shelf Expiration Date Model / Serial / Lot Stent-07/27/2012 Implanted:Qty: 1 on 07/27/2012 Stent Right: Eye [employer] [id number] / [id number] Description:Non-clinical son ting has demonstrated that the iStent Trabecular Micro-Bypass Stent (Models [id number] and [id number]) is MR Conditional. A patient with this [...] above, the iStent Trabecular Micro-Bypass Stent (Models [id number] and [id number]) is not expected to produce a clinically significant temperature rise after 15 minutes of continuous scanning. In non-clinical testing, the image artifact caused by the device extends less than 15 mm from the device when imaged with a gradient echo pulse sequence and a 3.0 T MRI system Insurance MEDICARE PART [place] & [place] [address] [facility] Advance Directives For more information, please contact: [phone] Documents on File Type Date Recorded Patient Screw Cutter Expl anation Power of Tractor Crane Engineer 05/28/2021 12:09 PM Power of Tractor Crane Engineer 05/28/2021 12:01 PM * Full Code - Unverified (Latest Code Status on File) Date Activated Date Inactivated Comments 05/18/2021 10:06 PM 05/29/2021 7:56 PM Care Teams Car Dispatcher Relationship Specialty Start Date End Date Aamir Purcell DO [address] [place] [address] PCP - General Family Medicine 03/28/17
--- OUTSIDE RECORDS SUMMARY | 2024-10-05 11:02 | XMS_ITS | Encounter Summary ---
Author Organization [facility] Address [address] [place] [address] Care Team Providers Care Industrial Green Systems Designer Name Role Phone Aamir Purcell MD Primary Care Provider [phone] Encounter Details Date Type Department Care Team (Late st Contact Info) Description 10/30/2021 Lab Requisition [facility] [address] [place] [phone] Migue Cole MD [address] [address] Social History Tobacco Use Types Packs/Day Years [...] - 145 mmol/L 10/30/2021 9:42 AM EDT [facility] (BE[facility]ER) Potassium 4.3 3.5 - 5.1 mmol/L 10/30/2021 9:42 AM EDT [facility] ([facility]) Chloride 101 98 - 107 mmol/L 10/30/2021 9:42 AM EDT [facility] (BE[facility]) CO2 28 21 - 31 mmol/L 10/30/2021 9:42 AM EDT [facility] ([facility]) BUN 36(H) 7 - 25 mg/dL 10/30/2021 9:42 AM EDT [facility] ([facility]) Creatinine 0.71 0.60 - 1.20 mg/dL 10/30/2021 9:42 AM EDT [facility] ([facility]) Glucose 74 70 - 100 mg/dL 10/30/2021 9:42 AM EDT [facility] ([facility]) Calcium 9.6 8.6 - 10.3 mg/dL 10/30/2021 9:42 AM EDT [facility] ([facility]) Anion Gap 10 <=30 mmol/L 10/30/2021 9:42 AM EDT [facility] ([facility]) eGFR 94.2 >60.0 mL/min/1. 73m*2 10/30/2021 9:42 AM EDT [facility] ([facility]) Comment:The [facility] s estimated glomerular filtration rate (eGFR) will [...] BUN/Creatinine Ratio 50.70 10/18 9:42 AM EDT [facility] ([facility]) Blood Venous blood specimen / Unknown 10/30/2021 7:00 AM EDT 10/30/2021 3:45 AM EDT us Migue Cole MD LAB BLOOD ORDERABLES Final Result [facility] ([facility]) [address] [place], [place] [id number] documented in this encounter Visit Diagnoses Not on filedocumented in this encounter Care Teams Industrial Green Systems Designer Relationship Specialty Start Date End Date Aamir Purcell MD [address] [place] [address] PCP - General 10/19/21 documented as of this encounter
--- OUTSIDE RECORDS SUMMARY | 2024-10-05 11:02 | XMS_ITS | Clinical Summary ---
Author Organization [facility] Address [address] [place] [address] Care Team Providers Care Vault Keeper Name Role Phone Aamir Purcell MD Primary Care Provider [phone] Social History Tobacco Use Types Packs/Day Years Used Date Smoking Tobacco: Never Assessed [place] Safety & Environment Answer Date Rec orded [...] Payer (Ef fective 2004-Present) Name:Cleo Georges Member ID:[id number] Relation to Subscriber:Self Name:Cleo Georges Subscriber ID:[id number] Payer ID:[id number] Group ID:Not on file Type:Medicare Address: [facility] [place] [id number] Care Teams Vault Keeper Relationship Specialty Start Date End Date Aamir Purcell MD [address] [place] [address] PCP - General 10/19/21
--- OUTSIDE RECORDS SUMMARY | 2024-10-05 11:02 | XMS_ITS | Clinical Summary ---
Author Organization [facility] Address [address] [place] [id number] Care Team Providers Care Counselor Aide Name Role Phone Aamir Purcell DO Primary Care Provider [phone] Adilson Hernandez MD Unavailable [phone] Kartik Mejia MD Unavailable [phone] Tisha Arriaga MD Unavailable Luis Miguel Kaur MD Unavailable [phone] Chris Zavala OD Unavailable Unavailable Allergies [...] (04/20/2020): Added automatically from request for surgery [id number] Primary open angle glaucoma (POAG) of left eye, severe stage 12/31/2019 Overview (12/31/2019): Added automatically from request for surgery [id number] Osteomyelitis 04/23/2019 Nuclear sclerotic cataract of left eye 9 Overview (12/16/2018): Added automatically from request for surgery [id number] CIDP (chronic inflammatory demyelinating polyneu ropathy) 06/24/2018 [...] 01/22/2018 Chronic pain of both knees 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) [...] Additional history exists URINE MICROALBUMIN TEST 03/15/2022 03/15/19 22, 09/01/2020, 05/15/2020, Additional history exists COVID-19 VACCINE ( - 2023- season) 2023 INFLUENZA VACCINE (#1) 2024 0, 11/04/2013, 11/04/2013 RSV VACCINE (1 - 1-dose 75+ series) 2038 HEPATITIS C VIRUS SCREENING Completed 01/22/2018, 03/06/2017 PNEUMOCOCCAL VACCINE SERIES Discontinued 10/07/2019, 07/29/2012 POTASSIUM Discontinued 03/15/2021, 12/19, 09/01/2020, Additional history exists TSH Discontinued 03/15/2021, 08/17, 03/13/2020, Additional history exists HEP B VACCINE Aged Out No longer elig ible based on patient's age to complete this topic Medical Devices Implanted Type Area Marine Engineering Consultant Device Identifier Shelf Expiration Date Model / Serial / Lot Lens [id number] D 23.5 - [id number] Implanted:Qty: 1 on 12/23/2018 by Grace Washington MD at [facility] LOC Left: Eye [employer] 09/16/2021 [id number] D 23.5 / [id number] / Implant Opth 250sq Mm Jo 1 Qdrnt Ins Fx Sut Hl Rcs Knt Cpb - [id number] Implanted:Qty: 1 on 02/23/2020 by Grace Washington MD at [facility] LOC Left: Eye [employer] 11/23/2020 [id number] / [id number] / Osc Tissue Cornea Padmini [id number] Implanted:Qty: 1 on 02/23/2020 by Grace Washington MD at [facility] LOC Left: Eye [employer] [facility] 08/16/2020 GLYCERIN / / [id number] Procedures Procedure Name Priority Date/Time Associated Diagnosis [...] Fatigue, unspecified type History of Raynaud's syndrome 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) Alkaline phosphatase elevation Type 1 diabetes mellitus with diabetic neuropathy DIABETIC EYE EXAM (OUTSIDE) Routine 06/20/2017 MAMMO SCREENING BILATERAL Routine 04/04/2017 12:46 PM EST Screening mammogram, encounter for from Last 3 Months or Most Recently Relevant to Health Maintenance Results * (ABNORMAL) MICROALBUMIN/CREATININE RATIO (03/15/2021 10:50 AM EST) CREATININE, MG/DL, URINE 105.5 MG/DL [address] Comment:NO NORMAL VALUES EST ABLISHED FOR RANDOM SPECIMENS Microalbumin, Urine, Random 133.1(H) 0 - 16.7 mg/L [address] MICROALBUMIN/CRE ATININE RATIO 126.2(H) 1.3 - 30.0 mg [facility] [address] Comment:Testing performed at [place], [place] [address] 03/15/2021 10:5 0 AM EST 03/15/2021 11:00 AM EST us Luis Miguel Kaur MD BODY FLUIDS & STOOLS ORDERABLE S Final Result [address] [address] * (ABNORMAL) TSH W/FT4 REFLEX (03/15/2021 8:58 AM EST) TSH, Reflex FT4 7.180(H) 0.46 - 4.68 uIU/ML [address] Comment:Testing performed at [place], [place] [address] Blood 03/15/2021 8:58 AM EST 03/15/2021 9:00 AM EST Luis Miguel Kaur MD ENDOCRINOLOGY Final Result [address] [address] * (ABNORMAL) HEMOGLOBIN A1C (03/15/2021 8:58 AM EST) HEMOGLOBIN A1C 11.7(H) 0 - 6 % [facility] - [address] - [facility] [place] Comment: NORMAL <5.7% PREDIABETES 5.7-6.4% DIABETES 6.5% OR HIGHER Estimated Average Glucose 289 mg/dL [facility] - [address] - [place] Blood 03/15/2021 8:58 AM EST 03/15/2021 9:00 AM EST Luis Miguel Kaur MD HEMATOLOGY ORDERABLES Final Re sult [facility] - [address] - [facility] [place] [address] [place] [address] * (ABNORMAL) LIPID PANEL W CALCULATED LDL (03/15/2021 8:58 AM EST) CHOLESTEROL 226(H) 107 - 217 MG/DL [address] TRIGLYCERIDE 174(H) 0 - 150 MG/DL [address] HDL CHOLESTEROL 48 33 - 75 MG/DL [address] LDL CHOLESTEROL, CALCULATED 143 MG/DL [address] VLDL Cholesterol, Calculated 35(H) 5.0 - 25 MG/DL [address] TCHOL/HDL RATIO, MANUAL ENTER 4.[address] Comment: RISK TOTAL/HDL RATIO MEN WOMEN 1/2 AVERAGE 3.43 3.27 AVERAGE 4.97 4.44 2X AVERAGE 9.55 7.05 3X AVERAGE 23.99 11.04 Testing performed at [place], [place] [address] Blood 03/15/2021 8:58 AM EST 03/15/2021 9:00 AM EST us Luis Miguel Kaur MD CHEMISTRY ORDERABLES Final Res ult [address] [address] * (ABNORMAL) COMPREHENSIVE METABOLIC PANEL (03/15/2021 8:58 AM EST) Glucose 222(H) 70 - 100 MG/DL [address] Comment: NORMAL <100 mg/dL PREDIABETES 101-126 mg/dL DIABETES 126 mg/dL or higher BUN 26(H) 7 - 20 MG/DL [address] CREATININE SERUM 1.20 0.7 - 1.2 MG/DL [address] SODIUM 139 137 - 145 MMOL/L [address] Potassium 4.5 3.5 - 5.1 MMOL/L [address] CHLORIDE 105 98 - 107 MMOL/L [address] Comment:Please note: Triglyc eride levels of 600mg/dL or higher may positively bias chloride results by approximately 2.1 mmol CALCIUM 9.6 8.4 - 10.2 MG/DL [address] PROTEIN, TOTAL 7.3 6.3 - 8.2 GM/DL [address] Albumin 3.9 3.5 - 5.0 G/dl [address] BILIRUBIN, TOTAL 0.4 0.2 - 1.3 MG/DL [address] AST 19 14 - 36 IU/L [address] ALKALINE PHOSPHATASE 113 38 - 126 IU/L [address] CARBON DIOXIDE (CO2) 24 22 - 30 MMOL/L [address] A/G Ratio 1.1(L) 1.3 - 2.[address] ALT 14 <35 IU/L [address] ESTIMATED GFR, NON AMER 49 ml/min/1. 73sq.m [address] ESTIMATED GFR, 59 ml/min/1. 73sq.m [address] GFR COMMENT Average GFR for 50-59 years old = 93. [address] Comment: Chronic Kidney disease, GFR = <60. Kidney failure, GFR = <15. The GFR estimate is not adjusted for extreme body surface area or acute process, nor has it been validated for women or ethnic groups other than and . Testing performed at [place], [place] [address] Blood 03/15/2021 8:58 AM EST 03/15/2021 9:00 AM EST us Luis Miguel Kaur MD CHEMISTRY ORDERABLES Final Res ult [address] [address] * HEPATITIS A, B, C (01/22/2018 4:29 [...] with a HCV Nucleic Acid Amplification test ([id number]). PERFORMED AT [facility] 01/22/2018 4:29 PM EST 01/22/2018 4:33 PM EST Victor Manuel Agee Jr., DO IMMUNOLOGY ORDERABLES Final Result [facility] * DIABETIC EYE EXAM (OUTSIDE) (06/20/2017) Historical Provider AR - ENDOCRINE SYSTEM SERVIC ES Final Result [...] Most Recently Relevant to Health Maintenance Insurance Medicare A and B Medicare A and B [facility] Medicare A and B [facility] Self Insured Employer or Generic OS Advance Directives For more information, please contact: [phone] (7:30 AM - 6PM [facility], Friday-Friday) * Full Code (Latest Code Status on File) Date Activated Date Inactivated Comments 10/09/2017 4:19 PM Care Teams Counselor Aide Relationship Specialty Start Date End Date Aamir Purcell DO PCP - General Family Medicine 03/06/17 Adilson Hernandez MD [address] [place] [address] Ophthalmology 07/18/17 Kartik Mejia MD [address] [place] [address] Pain Medicine 12/25/17 Tisha Arriaga MD [address] [place] [address] Neurologist Neurology 07/18/17 Luis Miguel Kaur MD [address] [place] [address] Crime Lab Technician Endocrinology, Diabetes & Metabolism 03/06/17 Chris Zavala, OD [address] [place] [address] Optometry 03/15/20
--- OUTSIDE RECORDS SUMMARY | 2024-10-05 11:02 | XMS_ITS | Encounter Summary ---
Author Organization [facility] [employer] [facility] Address [address] [place] [address] Care Team Providers Care Urban Planning Teacher Name Role Phone Aamir Purcell DO Primary Care Provider [phone] Adilson Hernandez MD Unavailable [phone] Kartik Mejia MD Unavailable [phone] Tisha Arriaga MD Unavailable Luis Miguel Kaur MD Unavailable [phone] Chris Zavala OD Unavailable Unavailable Reason for Visit * Reason Onset Date Comments Order Request 03/15/2019 Encounter Details Date Type Department Care Team (Late st Contact Info) Description 03/15/2019 Telephone Central Scheduling [address] [place] [address] Arcenio Lopez Order Request Social [...] on filedocumented in this encounter Care Teams Urban Planning Teacher Relationship Specialty Start Date End Date Aamir Purcell DO PCP - General Family Medicine 03/06/17 Adilson Hernandez MD [address] [place] [address] Ophthalmology 07/18/17 Kartik Mejia MD [address] [place] [address] Pain Medicine 12/25/17 Tisha Arriaga MD [address] [place] [address] Neurologist Neurology 07/18/17 Luis Miguel Kaur MD [address] [place] [address] Licensed Psychiatric Technician Endocrinology, Diabetes & Metabolism 03/06/17 Chris Zavala, OD [address] [place] [address] Optometry 03/15/20 documented as of this encounter
--- OUTSIDE RECORDS SUMMARY | 2024-10-05 14:24 | XMS_ITS | CCD ---
Author Organization [facility] CliniSyaz Care Team Providers Care Mitigation Supervisor Name Role Phone Neri Santa Unavailable Pili Gilliam Unavailable Reji Miramontes Unavailable Unavailable Unavailable Unavailable Luis Miguel Kaur Unavailable Neri Santa Unavailable Luis Miguel Kaur Unavailable Tisha Arriaga Unavailable Skylar Hernandez Unavailable Kartik Mejia Unavailable Pili Gilliam Admitting Unavailable Pili Gilliam Attending Unavailable Pili Gilliam Admitting Unavailable Pili Gilliam Attending Unavailable Pili Gilliam Admitting Unavailable Pili Gilliam Attending Unavailable Pili Gilliam Admitting Unavailable Pili Gilliam Attending Unavailable Martha Yan Admitting Unavailable Martha Yan Attending Unavailable Ariel Franklin Attending Unavailable Ariel Franklin Admitting Unavailable Mark Anthony Mcdonald Admitting Unavaila ble Mark Anthony Mcdonald Attending Unavaila ble Mark Anthony Mcdonald Admitting Unavaila Mark Anthony Carvajal Attending Unavaila Neri Shah Primary Care Provider Pili Gilliam Unavailable Reji Miramontes Unavailable Neri Santa Primary Care Provider [phone] Pili Gilliam Unavailable [phone] Craske, W. Don Unavailable HOUSE, NERI P Primary Care [...] Primary Care Provider Reji Miramontes Unavailable House DO, Neri P Primary Care Provider Mane FLORES, Pili Juárez Unavailable [phone] Fe SOMMER, Reji PALACIOS Don Unavailable [phone] MARIELA JR., JEF Attending Unavailable HOUSE, NERI [...] Attending Unavailabl e PHYSICIAN PHYSICIAN, PCP PCP UNKNOWN~[phone] Primary Care Unavailable BANNING, KIKE Consulting Unavailable PRECIOUS, BLASE Attending Unavailable PRECIOUS, BLASE Admitting Unavailable BANNING, KIKE Consulting Unavailable BANNING, KIKE Consulting Unavailable BAUERLE, CLARISA Consulting Unavailable BAUERLE, CLARISA Consulting Unavailable BAUERLE, CLARISA Consulting Unavailable VAISHALI ERAZO Referring Unavailable PHYSICIAN PHYSICIAN, PCP PCP UNKNOWN~[phone] Primary Care Unavailable House DO, Neri P Primary Care Provider David VIVEROS, Skylar Rizo Unavailable Kartik Mejia MD Unavailable Tisha Arriaga MD Unavailable Luis Miguel aKur MD Unavailable Lucas MERCADO, Chris A Unavailable Kartik Mejia MD Unavailable HOUSE, NERI P Primary Care Unavailable TORI HART Attending Unavailable MARIELA AHMADI, JEF Admitting Unavailable HOUSE, NERI P Primary Care Unavailable TORI HART Referring Unavailable HOUSE, NERI P Primary Care Unavailable ADRIANE, NBA TRIMBLE Admitting Unavaila ble GRIFFIN, MAC STERLING Consulting Unavailable ALAHMADRASHADA Attending Unavailable House DO, Sr Neri P Primary Care Provider [phone] House DO, Sr Neri P Primary Care Provider JERRY POZO Attending Unavailable HERCHER, JOHNY Referring Unavailable HOUSE, NERI Primary Care Unavailable JERRY POZO Admitting Unavailable KARLOS Shen Attending Provider [phone] HOUSE, NERI P Primary Care Unavailable SHARON HERNANDEZ Attending Unavailabl e SELF, SELF Referring Unavailable HOUSE, NERI P Primary Care Unavailable KIERRA, SHARON H Attending Unavailabl e SELF, SELF Referring Unavailable HOUSE, NERI P Primary Care Unavailable OLGA LIDIA MATOS Attending Unavailable SELF, SELF Referring Unavailable HOUSE, NERI P Primary Care Unavailable HOUSE, NERI P Referring Unavailable NURYS THORNTON Attending Unavailable DAVIDORF, SHARON H Attending Unavailabl e HOUSE, NERI P Primary Care Unavailable SELF, SELF Referring Unavailable HOUSE, NERI P Primary Care Unavailable KRYSTYNA BUSBY Referring Unavailable DESTINY HUSSEIN Attending Unavailable HOUSE, NERI P Primary Care Unavailable QIKRYSTYNA Referring Unavailable ANAM BULLARD Attending Unavailable HOUSE, NERI P Primary Care Unavailable MATSANIA FRAGOSO Attending Unavailable QI, KRYSTYNA Referring Unavailable HOUSE, NERI P Primary Care Unavailable QI, KRYSYTNA Referring Unavailable GILES RUIZ Attending Unavailable HOUSE, NERI P Primary Care Unavailable QI, KRYSTYNA Referring Unavailable KATAKI, BENJI Attending Unavailable QI, KRYSTYNA Referring Unavailable KATAKI, BENJI Attending Unavailable HOUSE, NERI P Primary Care Unavailable SELF, SELF Referring Unavailable OLGA LIDIA MATOS Attending Unavailable HOUSE, NERI P Primary Care Unavailable HOUSE, NERI P Primary Care Unavailable BENAMEUR, NURYS R Referring Unavailable JOVON BOWERS Attending Unavailable MATLISU, SANIA Attending Unavailable QI, KRYSTYNA Referring Unavailable HOUSE, NERI P Primary Care Unavailable HOUSE, NERI P Primary Care Unavailable SELF, SELF Referring Unavailable OLGA LIDIA MATOS Attending Unavailable HOUSE, NERI P Primary Care Unavailable QI, KRYSTYNA Referring Unavailable DESTINY HUSSEIN Attending Unavailable HOUSE, NERI P Primary Care [...] Care Unavailable HOUSE, NERI P Referring Unavailable BENAMEUR, NURYS R Attending Unavailable HOUSE, NERI P Primary Care Unavailable SELF, SELF Referring Unavailable OLGA LIDIA MATOS Attending Unavailable QI, KRYSTYNA Referring Unavailable KATAKI, BENJI Attending Unavailable ARINA, NERI Elena Primary Care Unavailable Ganga Savage MD Primary Care Provider Rufus Shen Attending Unavailable Rufus Shen Admitting Unavailable Ganga Savage MD Primary Care Provider GANGA SAVAGE Primary Care Unavailable ALISIA, ALISIA VAISHALI Referring Unavailable ALISIA, ALISIA VAISHALI Referring Unavailable JANETTE GANGA E Primary Care Unavailable ALISIA, ALISIA VAISHALI Referring Unavailable JANETTE, GANGA E Primary Care Unavailable [place] Neri VIVEROS Primary Care Provider Jami Onofre Attending Unavailable JemimaJami lambert Attending Unavailable Jami Onofre Attending Unavailable ROYER ALALars Admitting Unavailable LEILA LINTON Attending Unavailable Garfield Rodriguez Attending Unavailable House Neri VIVEROS Primary Care Provider SKYLAR WHITFIELD Attending Unavailable REBECA ROJAS Referring Unavailable RAMONA CAMPUZANO Attending Unavailable SKYLAR WHITFIELD Attending Unavailable Allergies Allergy Classification Reported Allergen(s) Allergy Type Date of Onset Reaction(s) Facility Cephalosporins (antibiotic) (3 sources) Cephalexin Drug Allergy 04-07-19 18 Itching [facility] Opioid Agonists (3 sources) tapentadol Drug Allergy 04-07-19 18 Unknown [facility] Quinolones (antibiotic) (3 sources) moxifloxacin Drug Allergy 04-07-19 18 Itching, Swelling, Rash, Other (See Comments) [facility] (20 sources) cephalexin; Translations: [CEPHALEXIN] Propensity to adverse reactions to drug 12-02-19 12 Itching, Rash, Hives, Unknown, Swelling [facility] (20 sources) moxifloxacin; Translations: [MOXIFLOXACIN] Propensity to adverse reactions to drug 12-02-19 12 Itching, Swelling, Rash, Other (See Comments), Unknown [facility] (20 sources) tapentadol; Translations: [TAPENTADOL] Propensity to adverse reactions to drug 04-07-19 18 Unknown [facility] (20 sources) polyethylene glycol 3350 / potassium chloride / sodium bicarbonate / sodium chloride / sodium sulfate Drug Allergy 10-29-19 17 [facility] Work Phone: (20 sources) tapentadol Drug Allergy 10-31-19 16 Other (See Comments) [facility] Work Phone: (3 sources) Cephalexin; Translations: [Keflex] Drug Allergy 06-23-19 10 [facility] Repository (3 sources) moxifloxacin; Translations: [Avelox] Drug Allergy 06-23-19 10 [facility] Repository (3 sources) tapentadol; Translations: [Nucynta] Drug Allergy 06-30-19 13 [facility] Repository (1 source) Bacitracin / Neomycin / Polymyxin B Drug Allergy 06-23-19 10 [facility] Repository (1 source) Calcium oxide Drug Allergy 06-23-19 10 [facility] Repository (1 source) POLYETHYLENE GLYCOL 3350 Drug Allergy 08-21-19 22 [facility] Repository (1 source) Sulfamethoxazole / Trimethoprim Drug Allergy 06-23-19 10 [facility] Repository (1 source) fentaNYL; Translations: [fentaNYL] Drug Allergy [facility] Repository (1 source) POLYETHYLENE GLYCOL 3350 / Potassium Chloride / Sodium Bicarbonate / Sodium Chloride / sodium sulfate; Translations: [GoLYTELY] Drug Allergy [facility] Repository (1 source) Shellfish; Translations: [shellfish] Propensity to adverse reactions (disorder) [facility] Repository (1 source) Shrimp product; Translations: [Shrimp] Propensity to adverse reactions (disorder) [facility] Repository (9 sources) Tapentadol hydrochloride Allergy to substance 02-05-20 14 Unknown [facility] Medications Current Medications Medication Drug Class(es) Dates [...] daily 0 04/24/2018 06/28/2021 Discontinued (LIST CLEANUP) albuterol 0.83 mg/ml inhalation solution (9 sources) beta2-Adrenergic Agonist albuterol (2.5 MG/3ML) 0.083% nebulizer solution Take 3 mL by nebulization every 4 (four) hours if needed Active amitriptyline hydrochloride 25 mg oral tablet (16 sources) Tricyclic Antidepressant End: 12-20-2019 amitriptyline (Elavil) 25 MG tablet Take 1 tablet as needed by oral route. Active bisacodyl 10 mg rectal suppository (3 sources) Stimulant Laxative Start: 07-29-2021 End: 10-09-2021 Start: 06-28-2021 take 5 mg by mouth o nce daily as needed 5 mg, Oral, DAILY PRN, Starting on Nohemy 06/28/21 at 2107, Until Discontinued, Constipation First line therapy for constipation. brimonidine tartrate 2 mg/ml ophthalmic solution (20 sources) alpha-Adrenergic Agonist Start: 05-11-2024 brimo nidine (AlphaGAN P) 0.2 % ophthalmic solution 05/11/2024 Active Start: 11-15-2019 take 1 drop(s) into [...] Start: 07-15-2021 take 2 tablets by mo [facility] once daily calcium carbonate-vitamin D3 (CALTRATE) 600-400 MG-UNIT TABS per tab Take 2 tablets by mouth daily 60 tablet 1 07/20/2021 Active carvedilol 12.5 mg oral tablet (20 sources) alpha-Adrenergic Chemo, beta-Adrenergic Chemo Start: 07-17-2023 carvedilol (Core g) 12.5 MG tablet 07/17/2023 Active Start: 06-29-2021 End: 06-29-2021 take 1 dose by mouth once 25 mg, Oral, ONCE, 1 dose, O n 06/29/21 at 0200 Administer with food to minimize [...] 2 times daily (with meals) 0 Active chlordiazePOXIDE hydrochlori de 5 mg oral [...] times a day . 0 08/08/2017 Active doxycycline monohydrate 100 mg oral capsule (19 sources) Tetracycline-class Drug Start: 08-27-2024 take 1 capsule by mouth twice daily doxycycline (Monodox) 100 MG capsule Indications: Traumatic ulcer of left foot, unspecified ulcer stage (HCC) Take 1 capsule, by mouth, bid x 7 days 14 capsule 08/27/2024 Active Start: 04-15-2024 doxycycline (V ibramycin) 100 MG capsule 04/15/2024 Active Start: 07-09-2021 End: 07-09-2021 Start: 05-01-2021 End: [...] PO Take by mouth . 01/05/2018 Discontinued DULoxetine 60 mg delayed release oral capsule (9 sources) Serotonin and Norepinephrine Reuptake Inhibitor take 1 capsule by mouth once daily DULoxetine (Cymbalta) [address] capsule Take 1 capsule by mouth Daily Active ezetimibe 10 mg oral tablet (7 sources) Dietary Cholesterol Absorption Inhibitor Start: 2 take 1 tablet by mouth once daily [...] IV to PO change per P&T policy fluocinonide 0.0005 mg/mg topical ointment (3 sources) Corticosteroid Start: 08-19-2023 End: 08-18-2024 fluocinonide (Lidex) 0.05 % ointment Indications: Other atopic dermatitis Apply topically 2 (two) times a day as needed for rash 180 g 08/19/2023 08/18/2024 Active Freestyle Juanpablo 14 Day Luxora Essie (5 sources) Start: 01-05-2018 End: 01-05-2018 Freestyle Juanpablo 14 Day Senso r Misc (6 sources) Start: 01-20-2018 Start: 01-05-2018 End: 01-20-2018 Start: 01-05-2018 End: 01-05-2018 glipiZIDE 10 mg oral tablet (18 sources) Sulfonylurea glipiZIDE (Gluco trol) 10 MG tablet 1 (one) time each day at the same time Active End: 06-28-2021 take 1 tablet by mouth twice daily before mealtime glipiZIDE (GLUCOTROL) 5 MG tablet Take 5 mg by mouth 2 times daily (before meals) 0 06/28/2021 Discontinued (LIST CLEANUP) hydrocortisone 10 mg/ml rect al cream (4 sources) Corticosteroid hydrocortisone 1 % [...] UNIT/ML Solution Pen-injector injection 3 samples given--Lot [id number], exp 10/2021 3 Prefilled Pen/Syringe 0 06/23/2020 [...] Pen/Syringe 4 01/19/2018 Active insulin degludec (Tresiba FlexTouch) 100 UNIT/ML injection Inject by subcutaneous route. Active insulin degludec (Tresiba FlexTouch U-100) 100 unit/mL (3 mL) InPn Inject under the skin . 0 Active insulin detemir (4 sources) Insulin Analog Insulin Detemir (LEVEMIR SC) Inject 12 Units into the skin at bedtime 0 Active 3 ml insulin glargine 100 unt/ml pen injector (20 sources) Insulin Analog Start: 08-15-2023 Basaglar KwikP en 100 UNIT/ML pen 08/15/2023 Active Start: 08-10-2021 inject 10 [IU] by wesley bcutaneous injection once daily 10 Units, SubCUTAneous, NIGHTLY, [...] the skin nightly 0 Active insulin lispro (HUMALOG KWIKPEN) 100 [...] at 0206 AbnerHelen carrington A: cabinet override Helen Levine: cabinet override Start: [...] ONCE, 1 dose, On Fri07/04/21 at 1845 meclizine hydrochloride 25 mg oral tablet (9 sources) Antiemetic Start: 04-15-2024 meclizine (Antivert) 25 MG tablet 04/15/2024 Active 1 ml morphine sulfate 2 mg/ml cartridge [...] tabs QHS 90 capsule 5 12/24/2017 Active omeprazole 40 mg delayed release oral capsule (9 sources) Proton Pump Inhibitor Start: 08-08-2023 omeprazole (PriLOSEC) [address] capsule 08/08/2023 Active oxyCODONE hydrochloride 5 mg oral tablet [...] a t 10 mL/hr, CONTINUOUS, Starting on 07/29/21 at 0830 Start: 07-26-2021 End: 08-02-2021 10 [...] needed 5-40 mL, IntraVENous, PRN, Starting on [facility] 06/28/21 at 2107, Until Discontinued, Line [...] for potassium 5.8 on 08/15/21 0 Active sucralfate 100 mg/ml oral suspension (9 sources) Aluminum Complex Start: 024 sucralfate (Carafate) 1 GM/10ML suspension 08/15/2023 Active sulfamethoxazole 800 mg / trimethoprim 160 mg oral tablet (3 sources) Dihydrofolate Reductase Inhibitor Antibacterial, Sulfonamide Antimicrobial Start: 021 End: 021 take 1 tablet by mouth twice daily [...] 15 tablet 4 10/16/2017 Active take 1 capsule by mo ut once daily levothyroxine (Tirosint) 112 MCG capsule Take 1 capsule every day by oral route. Active take 1 tablet by [place] th once daily levothyroxine (SYNTHROID) 112 MCG tablet Take 112 mcg by mouth Daily 0 Active topiramate 25 mg oral tablet (6 sources) Start: 12-24-2017 take 1 tablet by mouth twice daily topiramate 25 MG Tab tablet Take 1 tablet by mouth 2 times daily. 120 tablet 5 12/24/2017 Active traMADol hydrochloride 50 mg oral tablet (9 sources) Opioid Agonist Start: 11-04-2023 traMADol (Ultram) 50 MG tablet 11/04/2023 Active triamcinolone acetonide 1 mg/ml topical cream (5 sources) Corticosteroid Start: 08-27-2024 triamcinolone (Kenalog) 0.1 % cream Indications: Other atopic dermatitis Apply (1g) to the affected areas (feet), up to twice a day when flared, do not use one the face, groin, or underarms, 30 day supply 80 g 11 08/27/2024 Active 24 hr divalproex sodium 500 mg extended release oral tablet (15 sources) Mood Stabilizer, Anti-epileptic Agent Start: 08-06-2023 divalproex (Depakote ER) 500 MG 24 hr tablet 08/06/2023 Active Start: 07-03-2021 End: 08-09-2021 take 250 mg by mouth twice daily 250 mg, Oral, 2 times daily, First dose on Fri07/16/21 at 1300, Until Discontinued VITAMIN B COMPLEX-C CAPS (2 sources) Start: 03-05-2018 End: 06-28-2021 take 1 capsule by mouth once daily VITAMIN B COMPLEX-C CAPS Take 1 capsule by mouth daily 0 03/05/2018 06/28/2021 Discontinued (LIST CLEANUP) Start: 03-05-2018 take 1 capsule by mo [facility] once daily VITAMIN B COMPLEX-C CAPS Take 1 capsule by mouth daily 0 03/05/2018 Active zonisamide 100 mg oral capsule (16 sources) Anti-epileptic Agent End: 12-20-2019 take 1 capsule by mouth three times daily zonisamide (Zonegran) 100 MG capsule Take 1 capsule 3 times a day by oral route. Active Completed/Discontinued Medications Medication Drug Class(es) Dates Sig (Normalized) Sig (Original) acetaminophen 325 mg oral tablet (4 sources) Start: 07-06-2021 take 650 mg by mouth every six hours, then take 4000 mg by mouth every twenty-four hours 650 mg, Oral, EVERY 6 HOURS, First dose on Fri07/06/21 at 2245, Until Discontinued Maximum dose of [...] / HYDROcodone bitartrate 5 mg oral tablet (20 sources) Opioid Agonist Start: 07-14-2021 End: 07-24-2021 take 1 tablet by mouth every four hours as needed for pain 1 tablet, Oral, EVERY 4 HOURS PRN, Starting on 07/14/21 at 1705, Until 07/24/21 at 1357, Pain Moderate (4-6), Pain Severe (7-10) Maximum dose of acetaminophen is 4000 mg from all sources in 24 hours. Start: 07-14-2021 End: 07-14-2021 HYDROcodone-acetaminophen (N ORCO) 5-325 MG per tablet 1 tablet aspirin 325 mg oral tablet (20 sources) Nonsteroidal Anti-inflammatory Drug Start: 06-30-2021 take 81 mg by mouth once daily 81 mg, Oral, DAILY, First dose on 06/30/21 at 0900, Until Discontinued Start: 06-28-2021 End: [...] On Fri07/29/21 at 0630, For 1 dose cilostazol 100 mg oral tablet (1 source) [...] 20 mg/ml oral suspension (1 source) Uncompetitive W-tfbluq-B-aspartate Receptor Antagonist, Sigma-1 Agonist Start: 07-14-2021 End: [...] mg docusate sodium 50 mg / sennosides, shelter 8.6 mg oral tablet (1 source) Start: 07-06-2021 take 1 tablet by mouth twice daily 1 tablet, Oral, 2 TIMES DAILY, First dose on Fri07/06/21 at 2245, Until Discontinued, Post-op Drug or medicament (substance) (8 sources) Start: 07-25-2021 End: 07-26-2021 1-10 mg/hr (1-10 mL/hr), IntraVENous, CONTINUOUS, Starting on Fri07/25/21 at 1200, Until Fri07/26/21 at 0942 Titrate Infusion? Yes Initial Infusion [...] last modification) on 07/14/21 at 1745, Until Discontinued Indication of Use: [...] 25 mcg, IntraVENous, ONCE, 1 dose, On 07/01/21 at 1915 If oral and IV narcotics [...] override Jess Ventura: cabinet override Freestyle Juanpablo Luxora Essie (5 sources) Start: 04-21-2017 End: 01-07-2018 Continuous Blood Gluc [employer]crete Buildings As[employer]er (FREESTYLE JUANPABLO READER) Device Indications: Type 2 diabetes mellitus with diabetic polyneuropathy, without long-term current use of insulin Apply 1 Device topically As directed. Use to download subcutaneous glucose monitor data at least four times daily 1 Device 3 04/21/2017 01/07/2018 Discontinued Start: 04-21-2017 Continuous Blo od Gluc [employer]crete Buildings As[employer]er (FREESTYLE JUANPABLO READER) Device Indications: Type 2 [...] 10 mg, Oral, ONCE, 1 dose, On 07/23/21 at 0645 Start: 06-29-2021 End: 06-30-2021 5 [...] 2140, Until Fri07/06/21 at 2141 Ashwini Cleary: cabinet override Ashwini Cleary: cabinet override immune globulin (human) (GAMUNEX-C) infusion 15 g (3 sources) Start: 05-11-2021 End: 05-11-2021 immune globulin (human) (GAMUNEX-C) infusion 15 g Start: 10-03-2020 End: 10-03-2020 immune globulin (human) (WANDA UNEX-C) infusion 15 g Start: 09-21-2020 End: 09-21-2020 immune globulin (human) (WANDA UNEX-C) infusion 15 g insulin lispro 100 unt/ml injectable solution (20 [...] HOURS, First dose (after last modification) on Tu07/24/21 at 1600, Until Discontinued Medium Dose Corrective [...] KwikPen) 100 UNIT/ML Solution Pen-injector Sample given [id number], 3 mL 0 09/13/2020 09/28/2020 Discontinued (Therapy [...] 07/27 at 1906, Until Fri07/27/21 at 1907 Abner, Helen A: cabinet override Abner, Helen A: cabinet override Start: 06-28-2021 10 mg, IntraVE Nous, EVERY 4 HOURS PRN, Starting on Nohemy 06/28/21 at 1615, Until Discontinued, High Blood Pressure, for sbp >160 Hold for HR <60, or SBP <120 lactobacillus rhamnosus gg 1 [id number] unt oral capsule (6 sources) Start: 07-11-2021 [...] 08-04-2021 30 mL, Per NG tube, DAILY IL N, Starting on Fri08/04/21 at 0800, Until [...] Administer over 1 Hours, ONCE, On Nohemy 07/05/21 at 1115, For 1 dose Recommended infusion rate not to exceed 1,000 mg (milligrams) per hour. Start: 07-01-2021 End: 07-01-2021 2,000 mg, IntraVENous, at 25 mL/hr, Administer over 2 Hours, ONCE, On Fri07/01/21 at 1130, For 1 dose 2 grams total Start: 06-28-2021 End: 06-28-2021 2,000 mg, IntraVENous, at 25 mL/hr, Administer over 2 Hours, ONCE, On [facility] 06/28/21 at 1445, For 1 dose [...] 2 mg, IntraVENous, ONCE, 1 dose, On Sun 22 at 0600 Start: 07-24-2021 End: 07-24-2021 2 [...] at 1157, Until Discontinued, Muscle spasms tiZANidine (Hamzah flex) 4 MG tablet Take 1 tablet as needed by oral route. Active vitamin b12 1 mg oral tablet (4 sources) Vitamin B12 Start: 06-10-2018 End: 09-28-2020 take 2 tablets by mouth once daily cyanocobalamin 1000 MCG Tab Take 2 tablets by mouth daily. 60 tablet 11 06/10/2018 09/28/2020 Discontinued (Therapy completed) (20 sources) Start: 07-26-2021 End: 08-02-2021 take [...] Fri07/14/21 at 1639, Until Discontinued, Nausea, Vomiting [Order 1 End] [Order 2 Start] Name: ondansetron (ZOFRAN) injection 4 mg Signed Summary: 4 mg, IntraVENous, EVERY 6 HOURS PRN, Starting on Fri07/14/21 at 1639, Until Discontinued, Nausea, Vomiting Administer [...] (10 mL/hr), IntraVENous, CONTINU OUS, Starting on Fri06/30/21 at 1315, Until Fri07/02/21 at 1411 Start: [...] F irst dose (after last modification) on [facility] 06/28/21 at 1615, Until Discontinued Antimicrobial Indications: Central Nervous System Infection Administer as slow IV Push over 5 mins Reconstitute 2 g vials with 19.2 mL of designated diluent to produce a 100mg/mL solution Start: 06-28-2021 End: 06-28-2021 500 mg, IntraVENous, at 1,00 0 mL/hr, Administer over 60 Minutes, ONCE, On [facility] 06/28/21 at 1445, For 1 dose Use 0.22 micron in-line filter. (1 source) Start: 06-28-2021 16 g (4 tablet ), Oral, PRN, Starting on [facility] 06/28/21 at 1616, Until Discontinued, Low blood [...] mL/hr, Administer over 121 Minutes, ONCE, On [facility] 07/07/21 at 0600, For 1 dose Start: 07-06-2021 [...] Date Documented Da te Episodic/Chronic Allergic reactions (2 sources) Atopic dermatitis; Translations: [Other atopic dermatitis] 08-27-2024 Chronic Allergic reactions (8 sources) Allergy to drug; [...] (nail) except thumb, initial encounter] Episodic Cataract (20 sources) Nuclear sclerotic cataract; Translations: [Age-related nuclear [...] Coronary atherosclerosis; Translations: [Atherosclerotic heart disease of [place] coronary artery without angina pectoris] Onset: 3 [...] aftercare (20 sources) Patient encounter status; Translations: [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-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 (NSAID)] Onset: 8 01-22-2018 Episodic Other aftercare (1 source) Long-term current use of antibiotic; Translations: [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] Episodic Other HOUSEKEEPING/LAUNDRY infection and poliomyelitis (9 sources) 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; 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] Episodic Other connective tissue disease (2 sources) Pain in hallux; Translations: [Pain in left toe(s)] Episodic Other connective tissue disease (4 sources) History of cervical spine fusion; Translations: [Arthrodesis status] Onset: 3 Episodic Other eye disorders (11 sources) Dry eyes; Translations: [Dry eye syndrome of bilateral lacrimal glands] Onset: 5 06-28-2024 Episodic Other gastrointestinal disorders (7 sources) Irritable [...] 2 Episodic Skin and subcutaneous tissue infections (17 sources) Cellulitis of right lower limb; Translations: [Cutaneous abscess of left hand] Onset: 9 Episodic Skin and subcutaneous tissue infections (1 [...] Methicillin susceptible Staphylococcus aureus] Onset: 06-29-2021 Episodic Thyroid disorders (18 sources) Disorder of thyroid gland; Translations: [Disorder of thyroid, unspecified] Onset: 03-27-2015 Episodic Unclassified (2 sources) Traumatic ulcer of left foot, unspecified ulcer stage (HCC) 08-27-2024 Viral infection (8 sources) Disease caused by 2019-nCoV; Translations: [COVID-19] Onset: 07-14-2021 Episodic Results Test Name Value Interpretation Reference Range Facility Perimetry studyon 09-27-2024 [facility] Radiology Study observation (narrative) [facility] Aerobic cultureon 09-06-2024 Microorganism or agent identified Nom (Unsp spec) Final report Abnormal [facility] No Panel Informationon 09-06 Interpretation and review of laboratory results Abnormal [facility] Healthcare Performed at: - [address] [id number] Reconciliation Coordinator: Angel Jacobs PhD, Phone: [phone] [facility] RESULTon 09-06-2024 Bacteria identified Cx Nom (Unsp spec) Comment Abnormal [facility] Healthcare Comment on above: Enterobacter cloacae complex Some Enterobacterales may develop resistance during therapy with third-generation cephalosporins. This resistance is most commonly seen with Citrobacter freundii complex, Enterobacter cloacae complex, and Klebsiella aerogenes. Isolates that initially test susceptible may become resistant within a few days after initiation of therapy. Testing subsequent isolates may be warranted if clinically indicated. (CLSI [id number]) Light growth Bacteria identified Cx Nom (Unsp spec) Staphylococcus aureus Abnormal [facility] Comment on above: Based on susceptibil ity to oxacillin this isolate would be susceptible to: *Penicillinase-stable penicillins, such as: Cloxacillin, Dicloxacillin, Nafcillin *Beta-lactam combination agents, such as: Amoxicillin-clavulanic acid, Ampicillin-sulbactam, Piperacillin-tazobactam *Oral cephems, such as: Cefaclor, Cefdinir, Cefpodoxime, Cefprozil, Cefuroxime, Cephalexin, Loracarbef *Parenteral cephems, such as: Cefazolin, Cefepime, Cefotaxime, Cefotetan, Ceftaroline, Ceftizoxime, Ceftriaxone, Cefuroxime *Carbapenems, such as: Doripenem, Ertapenem, Imipenem, Meropenem Heavy growth Other Antibiotic [Susc] Comment N [facility] Comment on above: S = Susceptible; I = Intermediate; R [...] Tobramycin S Trimethoprim/Sulfa S S Vancomycin S [facility] SEGMENTAL BLOOD PRESSUREon 0 08-10-2024 [place] [address] Cardiology Report Signed Patient: MEG GEORGES MR#: [id number] : 1965 Acct:[id number] Age/Sex: 59 / F ADM Date: 08/10/24 Loc: CARD Attending Dr: Kailee CESPEDES Ordering Physician: Kailee Lopez Date of Service: 08/10/24 Procedure(s): CA segmental UE or LE SAMANTHA Accession Number(s): [id number] cc: MAHIN BERNAL ; Kailee Lopez [facility] Test Date: 2024-08-10 Pat Name: MEG GEORGES Department: Room: - Gender: Female Hospital Monitor: : 1965 Requested By: Kailee Lopez Order Number: [id number] Reading MD: FELIPA ALANIS M.D. Interpretive Statements [...] ALANIS Signed By: 08/10/24220608/10/242206 DD/ 1548 TD/TT: Triple Valve Mechanic: [facility] Radiology, Radiologist, MD - 08/10/2024 [place] [address] Cardiology Report Signed Patient: MEG GEORGES MR#: [id number] : 1965 Acct:[id number] Age/Sex: 59 / F ADM Date: 08/10/24 Loc: CARD Attending Dr: Kailee Lopez PA Ordering Physician: Kailee Lopez Date of Service: 08/10/24 Procedure(s): CA segmental UE or LE SAMANTHA Accession Number(s): [id number] cc: MAHIN BERNAL ; Kailee Lopez [facility] Test Date: 2024-08-10 Pat Name: MEG GEORGES Department: Room: - Gender: Female Hospital Monitor: : 1965 Requested By: Kailee Lopez Order Number: [id number] Reading MD: FELIPA ALANIS M.D. Interpretive Statements [...] ALANIS Signed By: 08/10/24220608/10/242206 DD/ 1548 TD/TT: Triple Valve Mechanic: [facility] Radiology Study observation (narrative) [facility] SEGMENTAL BLOOD PRESSUREOrde red By: Radiologist Radiology on 08-10-2024 [facility] Work Phone: XR FOOT SAMANTHA MIN [address] [address] XRay Report Signed Patient: MEG GEORGES MR#: [id number] : 1965 Acct:[id number] Age/Sex: 59 / F ADM Date: 08/10/24 Loc: CARD Attending Dr: Kailee CESPEDES Ordering Physician: Kailee Lopez Date of Service: 08/10/24 Procedure(s): XR foot SAMANTHA min 3V Accession Number(s): [id number] cc: MAHIN BERNAL ; Kailee Lopez [place] [address] Patient Name: MEG GEORGES MRN: [id number] date: 1965 Sex: F Assigned Patient Location: CARD Current Patient Location: CARD Accession/Order Number: [id number] Exam Date: 08/10/2024 11:59 Report Date: 08/10/2024 [...] Crews M.D. 08/10/2024 12:04 PM Dictation Location: [place] [address] Electronically authenticated by: [id number] Y Date: 08/10/2024 12:04 Dictated By: Misa Crews M.D. Signed By: 08/10/24 1207 DD/ 1204 TD/TT: Triple Valve Mechanic: [facility] Radiology, Radiologist, MD - 08/10/[address] [address] XRay Report Signed Patient: MEG GEORGES MR#: [id number] : 1965 Acct:[id number] Age/Sex: 59 / F ADM Date: 08/10/24 Loc: CARD Attending Dr: Kailee CESPEDES Ordering Physician: Kailee Lopez Date of Service: 08/10/24 Procedure(s): XR foot SAMANTHA min 3V Accession Number(s): [id number] cc: MAHIN BERNAL ; Kailee Lopez The [place] [id number] Patient Name: MEG GEORGES MRN: [facility]:[id number] date: 1965 Sex: F Assigned Patient Location: CARD Current Patient Location: CARD Accession/Order Number: [id number] Exam Date: 08/10/2024 11:59 Report Date: 08/10/2024 [...] Crews M.D. 08/10/2024 12:04 PM Dictation Location: [place] [address] Electronically authenticated by: [id number] Y Date: 08/10/2024 12:04 Dictated By: Misa Crews M.D. Signed By: 08/10/24 1207 DD/ 1204 TD/TT: Triple Valve Mechanic: [facility] Radiology Study observation (narrative) [facility] XR FOOT SAMANTHA MIN 3 VIEWSOrder ed By: Radiologist Radiology on 08-10-2024 [facility] Work Phone: Ophthalmic OCT panelon 06-30 [facility] Right Eye Images reviewed and comparison made to baseline, Images reviewed. To assess optic nerve function and for use in future follow-up. Reliability: good and adequate. Left Eye Images reviewed and comparison made to baseline, Images reviewed. To assess optic nerve function and for use in future follow-up. Reliability: good and adequate. 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 [facility] Ophthalmic OCT panelon 06-28 Radiology Study observation (narrative) [facility] ED Note-Physicianon 04-18-19 ED Note-Physician ED Note-Physician Basic Information Time Seen: Jeff [...] for 3 day(s), 15 tab(s), Refill(s) 0, [facility]pharm[facility] #[id number], 165.1, cm, 04/16/24 10:29:00 [...] made to ensure accuracy, however, inadvertently computerized milk drier mistakes may be present. Appropriate healthcare PPE [...] Depression Encepha (more content not included)... Normal [facility] Comment on above: Result Comment: Elec [...] MD Transcribed by: SINDY Technologist: HIWOT Win [facility] ED Clinical Summaryon 2024 ED Clinical Summary ED Clinical Summary [place] [id number] ED Clinical Summary Person Information Name: MEG GEORGES Jesusita/[facility] Age: 59 Years : 1965 Sex: Female Language: Moldovan PCP: Jami Payne Marital Status: Visit Id: [...] 04/16/2024 14:34:45 04/16/2024 14:34:45 04/16/2024 14:34:45 ADDRESS: [address] [place] [address] [place] [phone] PHYS DOC NOTES: MEDICAL INFORMATION: Prescriptions Given: New Medications [id number], [address] [place], [place] [id number], [phone] acetaminophen-oxycodo ne (Percocet 5 mg-325 mg oral [...] days 04/19/2024 DIAGNOSIS: Back pain; Fall Normal [facility] ED Patient Summaryon 025 ED Patient Summary ED Patient Summary [address] [address] Patient Discharge Instructions Person Information Name: MEG GEORGES Age: 59 Years Arrival Date: 04/16/2024 10:20:31 Discharge Diagnosis: Back pain; Fall Primary Care Physician: Jami Payne Provider Information Primary Provider: Garfield Rodriguez DO Advanced Entry Level Staff Accountant:Jeff Clancy PA-C The exam and treatment you received in the Emergency Department were for an urgent problem and are not intended as complete care. It is important that you follow up with a doctor, nurse practitioner, or physician???s visitor use assistant for ongoing care. If your symptoms [...] opioids can be used to help relieve lylwmirz-sk-krylzb pain and are often prescribed following a [...] be struggling with addiction, tell your health director long term care and ask for guidance or call [facility]???S National Helpline at 2-290-502-HELP. v S (more content not included)... Normal [facility] Pre-Arrival Noteon 5 Pre-Arrival Note Pre-Arrival Note Pre-Arrival Summary Name: , [facility] Current Date: 04/16/2024 10:22:29 EST Gender: Female Date of : Age: 60 Pre-Arrival Type: EMS ETA: 04/16/2024 10:38:00 EST Primary Care Physician: Presenting Problem: fall Pre-Arrival User: Shirin Miller RN Referring Source: Location: PA Completion Date/Time: 04/16/2024 10:09:00 [facility] Emergency Department Pre-Hospital Report Form Vital Signs: Pre-Hospital Report: Treatment in Route: Response to Treatment: Misc. Issues: Normal [facility] Family Medicine Office/Clini c Noteon 11-25-2023 [...] checking your blood sugars? _? resides at [facility] Do you have any of the following symptoms? Vision problems? no? Lightheadedness? no? Paresthesias, Ulcerations or sores? no? Patient is here for follow up on Thyroid Disease. Do you have any of the following symptoms? Change in energy level? no Weight change? no Heat/cold intolerance? no Hair/skin/nail changes? no Change in bowels? no Last TSH: [facility] to have labs completed prior to today's [...] 100 mcg (more content not included)... Normal [facility] Comment on above: Result Comment: Elec [...] feel free to contact me at extension [phone]. Thank you! Mai Wilkins LPN Clinical Battery Tester [place] [address] Extension: [phone] [email or web address] From: Jami Payne To: Mai Wilkins; Sent: 11/21/2023 08:41:15 EDT Subject: RE: Pre-Visit Planning Caller Name: MEG GEORGES; Caller Number: Cynthia , M major depressive disorder, recurrent moderate Normal [facility] Family Medicine Office/Clini c Noteon 10-24-2023 Family Medicine Office/Clinic Note Family Medicine Office/Clinic Note CONNOR Gallo is a 58 year old female presenting with D/C'd from [place] on 10/21/23 Is currently at [facility] Care: History: Any previous diagnosis: Diabetes, CKD [...] today to establish care. recently moved to [facility] from [facility] Review of Systems PHQ Score Initial Depression [...] panel ordered 2. 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 [...] being treated for this with infusions in [place]. she was warned about the risks of [...] pain, # 30 tab(s), Refills(s) 0, [facility], cm, 10/24/23 13:15:00 EDT, Height/Length Dosing, 64.6, kg, 10/24/23 13:15:00 EDT, Weight Dosing Follow-up No qualifying data available Problem List/Past Medical History Ongoing Benign hypertension with chronic kidney disease, stage III BMI 23.0-23.9, adult CIDP (chronic inflammatory demyelinating polyneuropathy) Depression Diabetic neuropathy Dizziness Glaucoma Hyperlipidemia Hypertension Hypothyroidism Long-term insulin use MGUS (monoclonal gammopathy of unknown significance) TRIP (obstructive sleep apnea) Stage 3a chronic [...] unit(s), SubCu (more content not included)... Normal [facility] Comment on above: Result Comment: Elec [...] feel free to contact me at extension [phone]. Thank you! Mai Wilkins LPN Clinical Battery Tester [place] [address] Extension: [phone] [email or web address] From: Jami Payne To: Mai Wilkins; Sent: 10/24/2023 14:29:06 EDT Subject: RE: Pre-Visit Planning Caller Name: MEG GEORGES; Caller Number: Sallie Pretty sure I addressed all of her diagnosis you had questions on. Thank you Normal [facility] Pre-Visit Planningon 024 Pre-Visit Planning Pre-Visit [...] feel free to contact me at extension [phone]. Thank you! Mai Wilkins LPN Clinical Battery Tester [address] [address] Extension: [phone] [email or web address] From: Jami Pyane To: Mai Wilkins; Sent: 10/23/2023 12:43:08 EDT Subject: RE: Pre-Visit Planning Caller Name: MEG GEORGES; Caller Number: Sallie chronic kidney disease stage 3a Normal [facility] Pre-Visit Planning Pre-Visit Planning From: Mai [...] feel free to contact me at extension [phone]. Thank you! Mai Wilkins LPN Clinical Battery Tester [place] [address] Extension: [phone] [email or web address] From: Jami Payne To: ClaudetteRachel palacioissa Sallie; Sent: 10/23/2023 10:45:18 EDT Subject: RE: Pre-Visit Planning Caller Name: MEG GEORGES; Caller Number: Sallie will determine during visit. thank you Normal [facility] Pre-Visit Planning Pre-Visit Planning From: Mai Wilkins To: Jami Payne; Sent: 10/23/2023 09:37:18 EDT [...] feel free to contact me at extension [phone]. Thank you! Mai Wilkins LPN Clinical Battery Tester [place] [address] Extension: [phone] [email or web address] Normal [facility] Physician Orderon 05-27-2023 Physician Order [id number] Normal [facility] Respiratory Panel by PCRon 0 05-27-2023 Adenovirus DNA CAL+non-probe Ql (Nph) Not detected Normal [facility] Comment on above: Order Comment: charanjit Zaidi had talked to [place] earlier in the day and they want the swab placed into the media to run the specimen [id number] 05/27/2023 17:26:25 EDT Result Comment: Test ing was performed using nucleic acid amplification including Influenza A, Influenza A H1, Influenza A H3, Influenza B, RSV A, RSV B, Adenovirus, Human Metapneumovirus, Parainfluenza 1,2,3, and 4, Rhinovirus, Bordetella parapertussis/bronchiseptica, Bordetella holmesii, and Bordetella pertussis. Performed By: #### 1 [id number] ####[address] [address] B. parapertussis DNA CAL+probe Ql (Upper resp) Not detected Normal Not Detected [facility] Comment on above: Order Comment: per charanjit Donaldson had talked to [place] earlier in the day and they want the swab placed into the media to run the specimen [id number] 05/27/2023 17:26:25 EDT Performed By: #### 1 [id number] ####[address] [address] B. pertussis DNA CAL+probe Ql (Upper resp) Not detected Normal Not Detected [facility] Comment on above: Order Comment: per charanjit Smiley had talked to [place] earlier in the day and they want the swab placed into the media to run the specimen [id number] 05/27/2023 17:26:25 EDT Performed By: #### 1 [id number] ####[address] [address] FLUAV H1 RNA CAL+non-probe Ql (Nph) Not detected Normal [facility] Comment on above: Order Comment: per charanjit Donaldson had talked to [place] earlier in the day and they want the swab placed into the media to run the specimen [id number] 05/27/2023 17:26:25 EDT Performed By: #### 1 [id number] ####[address] [address] FLUAV H3 RNA CAL+non-probe Ql (Nph) Not detected Normal [facility] Comment on above: Order Comment: per charanjit Donaldson had talked to [place] earlier in the day and they want the swab placed into the media to run the specimen [id number] 05/27/2023 17:26:25 EDT Performed By: #### 1 [id number] ####[address] [place] [address] FLUAV RNA CAL+non-probe Ql (Nph) Not detected Normal [facility] Comment on above: Order Comment: per charanjit Donaldson had talked to [place] earlier in the day and they want the swab placed into the media to run the specimen [id number] 05/27/2023 17:26:25 EDT Performed By: #### 1 [id number] ####[place] [address] [facility] [place] [address] FLUBV RNA CAL+non-probe Ql (Nph) Not detected Normal [facility] Comment on above: Order Comment: per charanjit Donaldson had talked to [place] earlier in the day and they want the swab placed into the media to run the specimen [id number] 05/27/2023 17:26:25 EDT Performed By: #### 1 [id number] ####[address] [address] Human Metapneumovirus Not detected Normal [facility] Comment on above: Order Comment: per charanjit Donaldson had talked to [place] earlier in the day and they want the swab placed into the media to run the specimen [id number] 05/27/2023 17:26:25 EDT Result Comment: This test result should be correlated with clinical presentations and medical history by a healthcare provider to determine its clinical significance. Performed By: #### 1 [id number] ####[facility] [address] [place] [address] Parainfluenza virus 1 RNA CAL+non-probe Ql (Nph) Not detected Normal [facility] Comment on above: Order Comment: per charanjit Donaldson had talked to [place] earlier in the day and they want the swab placed into the media to run the specimen [id number] 05/27/2023 17:26:25 EDT Performed By: #### 1 [id number] ####[facility] [address] [facility] [place] [address] Parainfluenza virus 2 RNA CAL+non-probe Ql (Nph) Not detected Normal [facility] Comment on above: Order Comment: charanjit Zaidi had talked to [place] earlier in the day and they want the swab placed into the media to run the specimen [id number] 05/27/2023 17:26:25 EDT Performed By: #### 1 [id number] ####[facility] [address] [place] [address] Parainfluenza virus 3 RNA CAL+non-probe Ql (Nph) Not detected Normal [facility] Comment on above: Order Comment: charanjit Zaidi had talked to [place] earlier in the day and they want the swab placed into the media to run the specimen [id number] 05/27/2023 17:26:25 EDT Performed By: #### 1 [id number] ####[facility] [address] [place] [address] Parainfluenza virus 4 RNA CAL+non-probe Ql (Nph) Not detected Normal [facility] Comment on above: Order Comment: charanjit Zaidi had talked to [place] earlier in the day and they want the swab placed into the media to run the specimen [id number] 05/27/2023 17:26:25 EDT Performed By: #### 1 [id number] ####[facility] [address] [place] [address] Resp Panel Intrl QC Pass Normal [facility] Comment on above: Order Comment: charanjit Zaidi had talked to [place] earlier in the day and they want the swab placed into the media to run the specimen [id number] 05/27/2023 17:26:25 EDT Performed By: #### 1 [id number] ####[facility] [address] [place] [address] Rhinovirus+Enterovirus RNA CAL+non-probe Ql (Nph) Not detected Normal [facility] Comment on above: Order Comment: charanjit Zaidi had talked to [place] earlier in the day and they want the swab placed into the media to run the specimen [id number] 05/27/2023 17:26:25 EDT Performed By: #### 1 [id number] ####[facility] [address] [place] [address] RSV RNA CAL+non-probe Ql (Nph) Detected Abnormal [facility] Comment on above: Order Comment: per charanjit Donaldson Erica had talked to [place] earlier in the day and they want the swab placed into the media to run the specimen [id number] 05/27/2023 17:26:25 EDT Performed By: #### 1 [id number] ####[facility] [address] [place] [address] [facility] CBC W/ AUTO DIFFon 03-20 Basophils (Bld) [#/Vol] 0.0 10*3/uL [facility] Basophils/100 WBC (Bld) 0.2 % 0.0 - 2.0 % [facility] EOS ABSOLUTE 0.9 High [facility] Eosinophils/100 WBC (Bld) 7.7 % 0.0 - 8.0 % [facility] Erythrocyte distribution width (RBC) [Ratio] 14.1 % 10.9 - 14.2 % [facility] Hematocrit (Bld) [Volume fraction] 32.0 % Low 34.0 - 46.0 % [facility] Hemoglobin (Bld) [Mass/Vol] 10.3 g/dL Low [facility] Interpretation and review of laboratory results Abnormal [facility] LYMPH ABSOLUTE 2.5 [facility] Lymphocytes/100 WBC (Bld) 22.1 % 14.0 - 50.0 % [facility] MCH (RBC) [Entitic mass] 30.0 pg 27.0 - 34.0 pg [facility] MCHC (RBC) [Mass/Vol] 31.9 g/dL [facility] MCV (RBC) [Entitic vol] 94.1 fL 80.0 - 100.0 fL [facility] MONO ABSOLUTE 1.0 [facility] Monocytes/100 WBC (Bld) 9.2 % 4.0 - 14.0 % [facility] NEUTRO ABSOLUTE 6.8 [facility] NEUTRO AUTO 60.8 % 36.0 - 75.0 % [facility] Platelet mean volume (Bld) [Entitic vol] 7.5 fL 6.4 - 10.8 fL [facility] Platelets (Bld) [#/Vol] 270.0 10*3/uL [facility] RBC (Bld) [#/Vol] 3.4 10*6/uL Low [facility] Healthcare WBC (Bld) [#/Vol] 11.3 10*3/uL High [facility] Healthcare Original Ordering Provider: [facility] CERVICAL SPINE WO CONTRAS Ton [...] to 8 to 9 mm compatible with mvdl-av-xxwswlcv central stenosis. No neural foraminal stenosis. C3-C4: [...] Chance Hugo DO 11/23/22 Final result Normal [facility] XR CERVICAL SPINE (4-5 VIEWS )on 04-03-2022 [...] Clark Veliz MD 04/03/22 Final result Normal [facility] Prior dens fracture with posterior fixation at C1-2 without complication. Multilevel degenerative facet hypertrophy. [facility] RIS CONSOLIDATED EXAMINATION: 4 XRAY VIEWS OF [...] The lung apices are without acute process. [facility] CONSOLIDATED Clark Veliz MD - [...] C1-2 without complication. Multilevel degenerative facet hypertrophy. [employer] Phone: XR CERVICAL SPINE (4-5 VIEWS )Ordered By: Clark Veliz on 04-03-2022 [employer] Phone: XR CERVICAL SPINE (4-5 VIEWS )on 04-02-2022 Radiology Study observation (narrative) [employer] Phone: XR CERVICAL SPINE FLEXION AN D EXTENSIONon 12-06-2021 Similar angulated pathologic dens fracture with posterior fixation C1-C2. [facility] CONSOLIDATED EXAMINATION: 2 XRAY VIEWS [...] is a tracheostomy tube in place. Similar zwmt-un-hjooihoc degenerative changes lower cervical spine. No localized prevertebral soft tissue swelling. [facility] Jose Dahl MD - 12/06/2021 EXAMINATION: 2 XRAY VIEWS [...] is a tracheostomy tube in place. Similar euoo-xx-qrwvipiy degenerative changes lower cervical spine. No localized prevertebral soft tissue swelling. IMPRESSION: Similar angulated pathologic dens fracture with posterior fixation C1-C2. [employer] Phone: XR CERVICAL SPINE FLEXION AN D EXTENSIONOrdered By: Jose Chan on 12-06-2021 [employer] Phone: XR CERVICAL SPINE FLEXION AN D EXTENSIONon 12-04-2021 Radiology Study observation (narrative) [employer] Phone: Basic Metabolic Panelon 10-0 Anion gap [Moles/Vol] 15.1 mmol/L High 6.0-15.0 [facility] Comment on above: Performed By: #### C BC, BMP #### [place] [address] [place] Calcium [Mass/Vol] 9.6 mg/dL Normal 8.2-10.2 [facility] Comment on above: Result Comment: PERF ORMED BY: [place] [address] PATHOLOGIST AIRLINE STEWARDESS ALEYDA GUERRIER M.D. Performed By: #### C BC, BMP #### [facility] [address] [place] [address] [place] Chloride [Moles/Vol] 97 mmol/L Normal 95-114 [facility] Comment on above: Performed By: #### C BC, BMP #### [facility] [address] CO2 [Moles/Vol] 25.4 mmol/L Normal 22.0-30.0 [facility] Comment on above: Performed By: #### C BC, BMP #### [facility] [address] Creatinine [Mass/Vol] 0.82 mg/dL Normal 0.44-1.03 [facility] Comment on above: Performed By: #### C BC, BMP #### [facility] [address] Estimated GFR ( [place] > 60 Normal [facility] Comment on above: Result Comment: GFR estimated reference range: According to KDOQI guidelines, <60 ml/min/1.73m2 is sufficient to diagnose a patient with chronic kidney disease. Performed By: #### C BC, BMP #### [address] Estimated GFR (Non- Am > 60 [facility] Comment on above: Performed By: #### C BC, BMP #### [address] Glucose [Mass/Vol] 105 mg/dL High 70-100 [facility] Comment on above: Result Comment: [place] Glucose Reference Range is dependent on time and content of last meal. Glucose of more than 200 mg/dL in a nonstressed, ambulatory subject supports the diagnosis of Diabetes Mellitus. ADA recommended reference range Performed By: #### C BC, BMP #### [facility] [address] [place] [address] [place] Potassium [Moles/Vol] 4.5 mmol/L Normal 3.5-5.1 [facility] Comment on above: Performed By: #### C BC, BMP #### [facility] [address] [place] [address] [place] Sodium [Moles/Vol] 133 mmol/L Low 136-146 [facility] Comment on above: Performed By: #### C BC, BMP #### [facility] [address] [place] [address] [place] Urea nitrogen [Mass/Vol] 31 mg/dL High 9-23 [facility] Comment on above: Performed By: #### C BC, BMP #### [facility] [address] [place] [address] [place] Basophils Auto (Bld) [#/Vol] Ordered By: Rufsu Shen on 11-22-2021 Basophils (Bld) [#/Vol] 0.0 10*3/uL 0.0-0.2 [facility] Basophils/100 WBC Auto (Bld) Ordered By: Rufus Shen on 11-22-2021 Basophils/100 WBC (Bld) 0.3 % . F [facility] Blood hemoglobin measurement (mass/volume)Ordered By: Rufus Shen on 11-22-2021 Hemoglobin (Bld) [Mass/Vol] 10.1 g/dL 11.8-15.4 [facility] Blood leukocytes automated c ount (number/volume)Ordered By: Rufus Shen on 11-22-2021 WBC (Bld) [#/Vol] 12.2 10*3/uL 4.5-11.0 [facility] Complete Blood Count Auto Di ffon 11-22-2021 Basophils (Bld) [#/Vol] 0.0 10*3/uL Normal 0.0-0.2 [facility] Comment on above: Result Comment: PERF ORMED BY: [place] [address] PATHOLOGIST [employer] STEWARDESS ALEYDA GUERRIER M.D. Performed By: #### C BC, BMP #### [facility] [address] Basophils/100 WBC (Bld) 0.3 % Normal . F [facility] Comment on above: Performed By: #### C BC, BMP #### [facility] [address] [place] [address] [place] Eosinophils (Bld) [#/Vol] 0.2 10*3/uL Normal 0.0-0.45 [facility] Comment on above: Performed By: #### C BC, BMP #### [facility] [address] Eosinophils/100 WBC (Bld) 2.0 % Normal . [facility] Comment on above: Performed By: #### C BC, BMP #### [facility] [address] Erythrocyte distribution width (RBC) [Ratio] 19.2 % High 11.9-15.3 [facility] Comment on above: Performed By: #### C BC, BMP #### [facility] [address] Hematocrit (Bld) [Volume fraction] 32.0 % Low 34.0-46.4 [facility] Comment on above: Performed By: #### C BC, BMP #### [facility] [address] Hemoglobin (Bld) [Mass/Vol] 10.1 g/dL Low 11.8-15.4 [facility] Comment on above: Performed By: #### C BC, BMP #### [facility] [address] Lymphocytes (Bld) [#/Vol] 2.2 10*3/uL Normal 1.00-4.8 [facility] Comment on above: Performed By: #### C BC, BMP #### [facility] [address] Lymphocytes/100 WBC (Bld) 18.2 % Normal . [facility] Comment on above: Performed By: #### C BC, BMP #### [facility] [address] [place] [address] [place] MCH (RBC) [Entitic mass] 27.0 pg Normal 24.7-34.3 [facility] Comment on above: Performed By: #### C BC, BMP #### [facility] [address] MCV (RBC) [Entitic vol] 85.7 fL Normal 80-100 F [facility] Comment on above: Performed By: #### C BC, BMP #### [facility] [address] [place] [id number] [place] Mean Corpuscular HGB Conc 31.5 g/dL Low 32.0-35.0 [facility] Comment on above: Performed By: #### C BC, BMP #### [facility] [address] [place] [address] [place] Monocytes (Bld) [#/Vol] 0.6 10*3/uL Normal 0.0-0.8 [facility] Comment on above: Performed By: #### C BC, BMP #### [facility] [address] [place] [id number] [place] Monocytes/100 WBC (Bld) 5.3 % Normal . F [facility] Comment on above: Performed By: #### C BC, BMP #### [facility] [address] [place] [address] [place] Neutrophils (Bld) [#/Vol] 9.0 10*3/uL High 1.8-7.7 [facility] Comment on above: Performed By: #### C BC, BMP #### [facility] [address] [place] [id number] [place] Neutrophils/100 WBC (Bld) 74.2 % Normal . [facility] Comment on above: Performed By: #### C BC, BMP #### [facility] [address] [place] [phone] [place] Nucleated RBC/100 WBC (Bld) [Ratio] 0.0 % Normal 0-0.5 [facility] Comment on above: Performed By: #### C BC, BMP #### [facility] [address] [place] [phone] [place] Platelet mean volume (Bld) [Entitic vol] 7.4 fL Normal 6.3-10.7 [facility] Comment on above: Performed By: #### C BC, BMP #### [facility] [address] [place] [address] [place] Platelets (Bld) [#/Vol] 543 10*3/uL High 150-450 [facility] Comment on above: Performed By: #### C BC, BMP #### [facility] [address] RBC (Bld) [#/Vol] 3.74 10*6/uL Normal 3.60-5.00 [facility] Comment on above: Performed By: #### C BC, BMP #### [facility] [address] [place] [phone] [place] WBC (Bld) [#/Vol] 12.2 10*3/uL High 4.5-11.0 [facility] Comment on above: Performed By: #### C BC, BMP #### [facility] [address] Creatinine and Glomerular fi ltration rate.predicted panel (S/P/Bld)Ordered By: Rufus Shen on 11-22-2021 Creatinine [Mass/Vol] 0.82 mg/dL 0.44-1.03 [facility] Eosinophils Auto (Bld) [#/Vo l]Ordered By: Rufus Shen on 11-22-2021 Eosinophils (Bld) [#/Vol] 0.2 10*3/uL 0.0-0.45 [facility] Eosinophils/100 WBC Auto (Bl d)Ordered By: Rufus Shen on 11-22-2021 Eosinophils/100 WBC (Bld) 2.0 % . [facility] Erythrocyte distribution wid th Auto (RBC) [Ratio]Ordered By: Rufus Shen on 11-22-2021 Erythrocyte distribution width (RBC) [Ratio] 19.2 % 11.9-15.3 [facility] Estimated glomerular filtrat ion rate (GFR) non- AmericanOrdered By: Rufus Shen on 11-22-2021 GFR/1.73 sq M.predicted among non-blacks MDRD (S/P/Bld) [Vol rate/Area] > 60 mL/Min [facility] Hematocrit Auto (Bld) [Volum e fraction]Ordered By: Rufus Shen on 11-22-2021 Hematocrit (Bld) [Volume fraction] 32.0 % 34.0-46.4 [facility] Laboratory - Hematology and Cell countsOrdered By: Rufus Shen on 11-22-2021 Nucleated RBC/100 WBC (Bld) [Ratio] 0.0 % 0-0.5 [facility] Lymphocytes Auto (Bld) [#/Vo l]Ordered By: Rufus Shen on 11-22-2021 Lymphocytes (Bld) [#/Vol] 2.2 10*3/uL 1.00-4.8 [facility] Lymphocytes/100 WBC Auto (Bl d)Ordered By: Rufus Shen on 11-22-2021 Lymphocytes/100 WBC (Bld) 18.2 % . [facility] MCH Auto (RBC) [Entitic mass ]Ordered By: Rufus Shen on 11-22-2021 MCH (RBC) [Entitic mass] 27.0 pg 24.7-34.3 [facility] MCHC Auto (RBC) [Mass/Vol]Or dered By: Rufus Shen on 11-22-2021 MCHC (RBC) [Mass/Vol] 31.5 g/dL 32.0-35.0 [facility] MCV Auto (RBC) [Entitic vol] Ordered By: Rufus Shen on 11-22-2021 MCV (RBC) [Entitic vol] 85.7 fL 80-100 F [facility] Monocytes Auto (Bld) [#/Vol] Ordered By: Rufus Shen on 11-22-2021 Monocytes (Bld) [#/Vol] 0.6 10*3/uL 0.0-0.8 [facility] Monocytes/100 WBC Auto (Bld) Ordered By: Rufus Shen on 11-22-2021 Monocytes/100 WBC (Bld) 5.3 % . F [facility] Neutrophils Auto (Bld) [#/Vo l]Ordered By: Rufus Shen on 11-22-2021 Neutrophils (Bld) [#/Vol] 9.0 10*3/uL 1.8-7.7 [facility] Neutrophils/100 WBC Auto (Bl d)Ordered By: Rufus Shen on 11-22-2021 Neutrophils/100 WBC (Bld) 74.2 % . [facility] No Panel InformationOrdered By: Rufus Shen on 11-22-2021 Estimated GFR () > 60 mL/Min [facility] Comment on above: GFR estimated refere nce range: According to KDOQI guidelines, <60 ml/min/1.73m2 is sufficient to diagnose a patient with chronic kidney disease. Pharmacy Creatinine Clearance (Chem N/A [facility] Platelet mean volume Auto (B ld) [Entitic vol]Ordered By: Rufus Shen on 11-22-2021 Platelet mean volume (Bld) [Entitic vol] 7.4 fL 6.3-10.7 [facility] Platelets Auto (Bld) [#/Vol] Ordered By: Rufus Shen on 11-22-2021 Platelets (Bld) [#/Vol] 543 10*3/uL 150-450 [facility] RBC Auto (Bld) [#/Vol]Ordere d By: Rufus Shen on 11-22-2021 RBC (Bld) [#/Vol] 3.74 10*6/uL 3.60-5.00 [facility] Serum or plasma anion gap de terminationOrdered By: Rufus Shen on 11-22-2021 Anion gap [Moles/Vol] 15.1 mmol/L 6.0-15.0 [facility] Serum or plasma calcium shakir urement (mass/volume)Ordered By: Rufus Shen on 11-22-2021 Calcium [Mass/Vol] 9.6 mg/dL 8.2-10.2 [facility] Serum or plasma chloride giovanna surement (moles/volume)Ordered By: Rufus Shen on 11-22-2021 Chloride [Moles/Vol] 97 mmol/L 95-114 [facility] Serum or plasma glucose shakir urement (mass/volume)Ordered By: Rufus Shen on 11-22-2021 Glucose [Mass/Vol] 105 mg/dL 70-100 [facility] Comment on above: ADA recommended refe rence rangeRandom Glucose Reference Range is dependent on time and content of last meal. Glucose of more than 200 mg/dL in a nonstressed, ambulatory subject supports the diagnosis of Diabetes Mellitus. Serum or plasma potassium me asurement (moles/volume)Ordered By: Rufus Shen on 11-22-2021 Potassium [Moles/Vol] 4.5 mmol/L 3.5-5.1 [facility] Serum or plasma sodium measu rement (moles/volume)Ordered By: Rufus Shen on 11-22-2021 Sodium [Moles/Vol] 133 mmol/L 136-146 [facility] Serum or plasma total carbon dioxide measurement (moles/volume)Ordered By: Rufus Shen on 11-22-2021 CO2 [Moles/Vol] 25.4 mmol/L 22.0-30.0 [facility] Serum or plasma urea nitroge n measurement (mass/volume)Ordered By: Rufus Shen on 11-22-2021 Urea nitrogen [Mass/Vol] 31 mg/dL 9 [facility] BASIC METABOLIC PANELon 10-18 Anion gap [Moles/Vol] 10 mmol/L Normal <=30 [facility] Comment on above: Performed By: #### L [id number] #### [facility] ([facility]) [address] [place] [address] Calcium [Mass/Vol] 9.6 mg/dL Normal 8.6-10.3 [facility] Comment on above: Performed By: #### L [id number] #### [facility] ([facility]) [address] [place] [place] [address] Chloride [Moles/Vol] 101 mmol/L Normal 98-107 [facility] Comment on above: Performed By: #### L [id number] #### [facility] ([facility]) [address] [place] [address] CO2 [Moles/Vol] 28 mmol/L Normal 21-31 [facility] Comment on above: Performed By: #### L [id number] #### [facility] ([facility]) [address] [place] [address] Creatinine [Mass/Vol] 0.71 mg/dL Normal 0.60-1.20 [facility] Comment on above: Performed By: #### L [id number] #### [facility]) [address] [facility] [address] GLOMERULAR FILTRATION RATE ML/MIN/1.73 SQ M.PREDICTED 94.2 mL/min/1.73m*2 Normal >60.0 [facility] Comment on above: Result Comment: [facility]???s estimated glomerular filtration rate (eGFR) will [...] individuals. Performed By: #### L [id number] #### [facility] ([facility]) [address] [place] [address] Glucose [Mass/Vol] 74 mg/dL Normal 70-100 [facility] Comment on above: Performed By: #### L [id number] #### [facility] ([facility]) [address] [place] [address] Potassium [Moles/Vol] 4.3 mmol/L Normal 3.5-5.[address] [facility] Comment on above: Performed By: #### L [id number] #### [facility] ([facility]) [address] [place] [address] Sodium [Moles/Vol] 139 mmol/L Normal 136-145 [facility] Comment on above: Performed By: #### L [id number] #### [facility] ([facility]) [address] [place] [address] Urea nitrogen [Mass/Vol] 36 mg/dL High 7-25 [facility] Comment on above: Performed By: #### L [id number] #### [facility] ([facility]) [address] [place] [address] UREA NITROGEN/CREATININE (MASS RATIO) IN SER/PLAS 50.70 Normal [facility] Comment on above: Performed By: #### L [id number] #### [facility] ([facility]) [address] [place] [address] HEMATOCRITon 10-27-2021 Hematocrit (Bld) [Volume fraction] 33.5 % Low 36.0-48.0 [facility] Comment on above: Performed By: #### L [id number] #### [facility] ([facility]) [address] [place] [address] HEMOGLOBINon 10-27-2021 Hemoglobin (Bld) [Mass/Vol] 10.7 g/dL Low 12.0-15.0 [facility] Comment on above: Performed By: #### L [id number] #### [facility] ([facility]) [address] [place] [address] ARTERIAL BLOOD GAS WITH ICAo n 08-21-2021 BASE EXCESS -7 mmol/L Low -2-3 [facility] Comment on above: Performed By: #### 8 [id number] ####[facility] [place] [address], [facility] [employer] VENT Normal The [facility] Comment on above: Performed By: #### 8 4511 ####[facility] [place] [address], [facility] FIO2 30 % Normal [facility] Comment on above: Performed By: #### 8 4511 ####[facility] [place] [address], [place] HCO3 (Bld) [Moles/Vol] 17 mmol/L Low 21-28 [facility] Comment on above: Performed By: #### 8 4511 ####[facility] [place] [address], [place] IONIZED CALCIUM 1.20 mmol/L Normal 1.13-1.32 [facility] Comment on above: Performed By: #### 8 4511 ####[facility] [place] [address], [place] MIN VOLUME 6.7 Normal [facility] Comment on above: Performed By: #### 8 4511 ####[facility] [place] [address], [place] MODALITY VENT Normal [facility] Comment on above: Performed By: #### 8 4511 ####[facility] [place] [address], [place] Oxygen (Bld) [Partial pressure] 163 mm[Hg] Critically high 83-108 [facility] Comment on above: Performed By: #### 8 4511 ####[facility] [place] [address], [place] Oxygen saturation in Blood 97.1 % High 94.0-97.0 [facility] Comment on above: Performed By: #### 8 4511 ####[facility] [place] [address], [place] PCO2 28 mmHg Low 35-45 [facility] Comment on above: Performed By: #### 8 4511 ####[facility] [place] [address], [place] PEEP 8.0 CMH20 Normal [facility] Comment on above: Performed By: #### 8 4511 ####[facility] [place] [address], [place] PF RATIO 543 mmHg Normal [facility] Comment on above: Performed By: #### 8 4511 ####[facility] [place] [address], [place] pH (Bld) 7.39 [pH] Normal 7.35-7.45 [facility] Comment on above: Performed By: #### 8 4511 ####[facility] [place] [address], [place] PRESSURE SUPPORT 8 Normal [facility] Comment on above: Performed By: #### 8 4511 ####[facility] [place] [address], [facility] BASE EXCESS -7 mmol/L Low -2-3 [facility] Comment on above: Performed By: #### 8 4511 ####[facility] [place] [address], [place] DEL[employer]ERY SYSTEMS VENT Normal The [facility] Comment on above: Performed By: #### 8 4511 ####[facility] [place] [address], [place] FIO2 30 % Normal [facility] Comment on above: Performed By: #### 8 4511 ####[facility] [place] [address], [place] HCO3 (Bld) [Moles/Vol] 17 mmol/L Low 21-28 [facility] Comment on above: Performed By: #### 8 4511 ####[facility] [place] [address], [place] IONIZED CALCIUM 1.15 mmol/L Normal 1.13-1.32 [facility] Comment on above: Performed By: #### 8 4511 ####[facility] [place] [address], [place] MIN VOLUME 8.2 Normal [facility] Comment on above: Performed By: #### 8 4511 ####[facility] [place] [address], [place] MODALITY AC Normal [facility] Comment on above: Performed By: #### 8 4511 ####[facility] [place] [address], [place] Oxygen (Bld) [Partial pressure] 158 mm[Hg] Critically high 83-108 [facility] Comment on above: Performed By: #### 8 4511 ####[facility] Oxygen saturation in Blood 97.6 % High 94.0-97.0 [facility] Comment on above: Performed By: #### 8 4511 ####[facility] [place] [address], [facility] PCO2 26 mmHg Low 35-45 [facility] Comment on above: Performed By: #### 8 4511 ####[facility] [place] [address], [facility] PEEP 8.0 CMH20 Normal [facility] Comment on above: Performed By: #### 8 4511 ####[facility] [facility].[address] PF RATIO 526 mmHg Normal [facility] Comment on above: Performed By: #### 8 4511 ####[facility] [facility], [place] [address] [place] [address] pH (Bld) 7.41 [pH] Normal 7.35-7.45 [facility] Comment on above: Performed By: #### 8 4511 ####[facility] [facility].[address] Respiratory rate 12 /min Normal [facility] Comment on above: Performed By: #### 8 4511 ####[facility] [facility].[address] TIDAL VOLUME (VT) CC 450 Normal [facility] Comment on above: Performed By: #### 8 4511 ####[facility] [facility], [place] [address] [place] [address] BASE EXCESS -3 mmol/L Low -2-3 [facility] Comment on above: Performed By: #### 8 4511 ####[facility] [facility], [place] [address] [place] [address] DELIVERY SYSTEMS MV Normal [facility] Comment on above: Performed By: #### 8 4511 ####[facility] [address], [facility] FIO2 30 % Normal [facility] Comment on above: Performed By: #### 8 4511 ####[facility], [place] [address] [place] [address] HCO3 (Bld) [Moles/Vol] 21 mmol/L Normal 21-28 [facility] Comment on above: Performed By: #### 8 4511 ####[facility] IONIZED CALCIUM 1.24 mmol/L Normal 1.13-1.32 [facility] Comment on above: Performed By: #### 8 4511 ####[facility] [place] [address], [facility] MIN VOLUME 6.7 Normal [facility] Comment on above: Performed By: #### 8 4511 ####[facility] [place] [address], [facility] MODALITY AC Normal [facility] Comment on above: Performed By: #### 8 4511 ####[facility] Oxygen (Bld) [Partial pressure] 155 mm[Hg] Critically high 83-108 [facility] Comment on above: Performed By: #### 8 4511 ####[facility] [place] [address], [facility] Oxygen saturation in Blood 98.3 % High 94.0-97.0 [facility] Comment on above: Performed By: #### 8 4511 ####[facility] [place] [address], [facility] PCO2 32 mmHg Low 35-45 [facility] Comment on above: Performed By: #### 8 4511 ####[facility] [place] [address], [facility] PEEP 8.0 CMH20 Normal [facility] Comment on above: Performed By: #### 8 4511 ####[facility] [place] [address], [facility] pH (Bld) 7.42 [pH] Normal 7.35-7.45 [facility] Comment on above: Performed By: #### 8 4511 ####[facility] [place] [address], [facility] Respiratory rate 12 /min Normal [facility] Comment on above: Performed By: #### 8 4511 ####[facility] [place] [address], [facility] TIDAL VOLUME (VT) CC 450 Normal [facility] Comment on above: Performed By: #### 8 4511 ####[facility] [facility] [place] [address], [facility] BASIC METABOLIC PANELon 07-0 Calcium [Mass/Vol] 7.9 mg/dL Low 8.6-10.3 [facility] [facility] Comment on [facility]: Order Comment: No: D o not add to previous draw Performed By: #### 6 2594 #### [facility] [address] [place] [address], [place] Chloride [Moles/Vol] 110 mmol/L High 98-107 [facility] Comment on above: Order Comment: No: D o not add to previous draw Performed By: #### 6 2594 #### [facility] [address] [place] [address], [place] CO2 [Moles/Vol] 20 mmol/L Low 21-31 [facility] Comment on above: Order Comment: No: D o not add to previous draw Performed By: #### 6 2594 #### [facility] [address] [place] [address], [place] Creatinine [Mass/Vol] 0.77 mg/dL Normal 0.60-1.20 [facility] Comment on above: Order Comment: No: D o not add to previous draw Performed By: #### 6 2594 #### [facility] [address] [place] [address], [place] GFR/1.73 sq M.predicted among blacks MDRD (S/P/Bld) [Vol rate/Area] mL/min/{1.73_m2} Normal >60 [facility] Comment on above: Order Comment: No: D o not add to previous draw Performed By: #### 6 2594 #### [facility] [address] [place] [address], [place] GFR/1.73 sq M.predicted among non-blacks MDRD (S/P/Bld) [Vol rate/Area] mL/min/{1.73_m2} Normal >60 [facility] Comment on above: Order Comment: No: D o not add to previous draw Performed By: #### 6 2594 #### [facility] [address] [place] [address], [place] Glucose [Mass/Vol] 124 mg/dL High 70-100 [facility] Comment on above: Order Comment: No: D o not add to previous draw Performed By: #### 6 2594 #### [facility] [address] [place] [address], [place] Potassium [Moles/Vol] 3.8 mmol/L Normal 3.5-5.1 [facility] Comment on above: Order Comment: No: D o not add to previous draw Performed By: #### 6 2594 #### [facility] [address] [place] [address], [place] Sodium [Moles/Vol] 139 mmol/L Normal 136-145 [facility] Comment on above: Order Comment: No: D o not add to previous draw Performed By: #### 6 2594 #### [facility] [address] [place] [id number], [facility] Urea nitrogen [Mass/Vol] 26 mg/dL High 7-25 [facility] Comment on above: Order Comment: No: D o not add to previous draw Performed By: #### 6 2594 #### [facility] [address] [place] [address], [facility] CBC COMPLETE BLOOD COUNTon 0 08-21-2021 Erythrocyte distribution width (RBC) [Ratio] 18.3 % High 11.5-15.0 [facility] Comment on above: Order Comment: No: D o not add to previous draw Nurse draw Performed By: #### 5 0608 #### [facility] [address] [place] [address], [facility] Hematocrit (Bld) [Volume fraction] 24.4 % Low 36.0-45.0 [facility] Comment on above: Order Comment: No: D o not add to previous draw Nurse draw Performed By: #### 5 0608 #### [facility] [address] [place] [address], [facility] Hemoglobin (Bld) [Mass/Vol] 8.2 g/dL Low 12.0-15.0 [facility] Comment on above: Order Comment: No: D o not add to previous draw Nurse draw Performed By: #### 5 0608 #### [facility] [address] [place] [address], [facility] MCH (RBC) [Entitic mass] 30.5 pg Normal 27.0-33.0 [facility] Comment on above: Order Comment: No: D o not add to previous draw Nurse draw Performed By: #### 5 0608 #### [facility] [address] [place] [address], [facility] MCHC (RBC) [Mass/Vol] 33.6 g/dL Normal 32.0-35.0 [facility] Comment on above: Order Comment: No: D o not add to previous draw Nurse draw Performed By: #### 5 0608 #### [facility] [address] [place] [address], [facility] MCV (RBC) [Entitic vol] 90.7 fL Normal 82.0-98.0 T [facility] Comment on above: Order Comment: No: D o not add to previous draw Nurse draw Performed By: #### 5 0608 #### [facility] [address] [place] [address], [facility] Nucleated RBC/100 WBC (Bld) [Ratio] 0 % Normal 0-0 [facility] Comment on above: Order Comment: No: D o not add to previous draw Nurse draw Performed By: #### 5 0608 #### [facility] [address] [place] [address], [facility] PLAT CNT 297 10*3/uL Normal 150-400 [facility] Comment on above: Order Comment: No: D o not add to previous draw Nurse draw Performed By: #### 5 0608 #### [facility] [address] [place] [address], [facility] RBC (Bld) [#/Vol] 2.69 10*6/uL Low 3.80-5.00 [facility] Comment on above: Order Comment: No: D o not add to previous draw Nurse draw Performed By: #### 5 0608 #### [facility] [address] [place] [id number], [place] WBC (Bld) [#/Vol] 11.33 10*3/uL High 4.00-10.60 [facility] Comment on above: Order Comment: No: D o not add to previous draw Nurse draw Performed By: #### 5 0608 #### [facility] [address] [place] [address], [facility] CT BRAIN WO CONTRASTon 08-21 CT BRAIN WO CONTRAST [facility] Department of Radiology [address] [place] [address] Patient Name: MEG GEORGES : 1965 Sex: F Age: Race: White Pt. Location: [id number] Patient Status: I Ordered Date: 08/21/2021 12:50:00 [...] report. Electronically signed: Martinez Hoover. Transcribed by: [email or web address], User Resident: AREIL SOLORZANO Electronically Signed by: MARTINEZ HOOVER @ 08/21/2021 05:07 PM I personally read this/these film(s) with this resident Normal [facility] Comment on above: Order Comment: Check NG Tube Position CT FACIAL BONES W CONTRASTon 08-21-2021 CT FACIAL BONES W CONTRAST [facility] Department of Radiology [address] [place] [id number] Patient Name: MEG GEORGES : 1965 Sex: F Age: Race: White Pt. Location: [place] [address] Patient Status: I Ordered Date: 08/21/2021 12:50:00 [...] above. Electronically signed: Martinez Hoover. Transcribed by: [email or web address], User Resident: Electronically Signed by: MARTINEZ HOOVER @ 08/21/2021 05:09 PM Normal [facility] Comment on above: Order Comment: R/O A telectasis LACTATE BLOODon 08-21-2021 Lactate [Moles/Vol] 0.6 mmol/L Normal .5-2.2 [facility] Comment on above: Order Comment: No: D o not add to previous draw Performed By: #### 1 0054 ####[facility] [place] [address], [place] LIVER BATTERYon 08-21-2021 Albumin [Mass/Vol] 2.3 g/dL Low 3.5-5.7 [facility] Comment on above: Order Comment: No: D o not add to previous draw Performed By: #### 6 2594 #### [facility] [address] [place] [address], [place] ALKALINE PHOSPH 172 IU/L High 34-104 [facility] Comment on above: Order Comment: No: D o not add to previous draw Performed By: #### 6 2594 #### [facility] [address] [place] [address], [place] ALT [Catalytic activity/Vol] 9 U/L Normal 7-52 [facility] Comment on above: Order Comment: No: D o not add to previous draw Performed By: #### 6 2594 #### [facility] [address] [place] [address], [place] AST [Catalytic activity/Vol] 12 U/L Low 13-39 [facility] Comment on above: Order Comment: No: D o not add to previous draw Performed By: #### 6 2594 #### [facility] [address] [place] [address], [place] Bilirubin [Mass/Vol] 0.4 mg/dL Normal 0.3-1.0 [facility] Comment on above: Order Comment: No: D o not add to previous draw Performed By: #### 6 2594 #### [facility] [address] [place] [address], [place] Bilirubin.direct [Mass/Vol] 0.1 mg/dL Normal 0.0-0.2 [facility] Comment on above: Order Comment: No: D o not add to previous draw Performed By: #### 6 2594 #### [facility] [address] [place] [address], [facility] Protein [Mass/Vol] 5.7 g/dL Low 6.0-8.3 The [facility] Comment on above: Order Comment: No: D o not add to previous draw Performed By: #### 6 2594 #### [facility] [address] MAGNESIUM BLOODon 08-21-2021 Magnesium [Mass/Vol] 2.1 mg/dL Normal 1.9-2.7 [facility] Comment on above: Order Comment: No: D o not add to previous draw Performed By: #### 6 2594 #### [facility] [address] Operative Reporton Operative Report MR#: [id number] I [facility] Pt. Name: Meg Georges Room #: [id number] [id number] Discharge Date: Birthdate: 1965 OPERATIVE REPORT DATE OF SURGERY: 08/21/2021 SURGEON: Jerry Pozo MD Operative report: Percutaneous endoscopic gastrostomy tube placement Location: [facility] main OR Date: 08/21/2021 Preoperative diagnosis: Oropharyngeal dysphagia, nasopharyngeal erosion Postoperative diagnosis: Same Operation performed: Percutaneous endoscopic gastrostomy tube placement Surgeon: Jerry Pozo MD Neon Tube Bender: Garfield Bowen MD ( resident PGY 5) Estimated blood loss: 2 mL Wound classification: Clean contaminated Tubes and drains: 20 [place] gastrostomy tube pull type Local anesthetic: 1% lidocaine plain, 4 mL used for subcutaneous infiltration Anesthesia: General anesthesia Indication: This is a 56-year-old woman who had a prolonged hospitalization at [facility] [place] over the last several months for COVID-related pneumonia and subsequent bacterial pneumonia complications. Patient had chronic hypoxemic respiratory failure requiring placement of tracheostomy approximately 2 weeks ago prior to transfer to [facility]. Patient presented to [facility] [...] Pozo MD Date Trans: 08/21/2021 11:17 A/ [id number] cc: Johny Beckman M.D. [address] [facility] [address] Neri Santa D.O. [address] [facility] [facility] [address] Normal [facility] PHOSPHORUS BLOODon 2 Phosphate [Mass/Vol] 2.3 mg/dL Low 2.5-5.0 [facility] Comment on above: Order Comment: No: D o not add to previous draw Performed By: #### 6 2594 #### [facility] [address] [facility] [place] [address], [place] POC GLUCOSE LABon 08-21-2021 Glucose [Mass/Vol] 138 mg/dL High 70-100 [facility] Comment on above: Performed By: #### 8 5499 #### [facility] [address] [place] [address], [place] Glucose [Mass/Vol] 164 mg/dL High 70-100 [facility] Comment on above: Performed By: #### 8 5499 ####[facility] [facility] [address], [place] Glucose [Mass/Vol] 143 mg/dL High 70-100 [facility] Comment on above: Order Comment: Bleed ing s/p recent tracheostomy Performed By: #### 8 5499 ####[facility] [place] [address], [place] Glucose [Mass/Vol] 124 mg/dL High 70-100 [facility] Comment on above: Performed By: #### 8 5499 ####[facility] PORTABLE CHEST 1 VIEWon PORTABLE CHEST 1 VIEW [facility] Department of Radiology [address] [place] [address] Patient Name: MEG GEORGES : 1965 Sex: F Age: Race: White Pt. Location: [place] [address] Patient Status: I Ordered Date: 08/21/2021 5:00:00 [...] unchanged. Electronically signed: Yaritza Young. Transcribed by: [email or web address], User Resident: Electronically Signed by: YARITZA YOUNG @ 08/21/2021 07:38 AM Normal [facility] Comment on above: Order Comment: R/O A telectasis *BLOOD CULTUREon 08-20-2021 *BLOOD CULTURE Clinical Report: (D) Specimen: BLOOD CULTURE Collected: 08/20/2021 00:47 Status: Final Last Updated: 08/25/2021 06:53 (1) RIGHT AC @ 0045. CULT RES (Final) No Growth Day 5 Normal [facility] Comment on above: Order Comment: RIGHT AC @ 0045. Performed By: #### 3 0313 #### [facility] [address] [facility]. [address] *BLOOD CULTURE Clinical Report: (D) Specimen: BLOOD CULTURE Collected: 08/20/2021 00:47 Status: Final Last Updated: 08/25/2021 06:53 (1) LEFT AC @ 0040. CULT RES (Final) No Growth Day 5 Normal [facility] Comment on above: Order Comment: Bleed ing s/p recent tracheostomy Performed By: #### 3 0313 ####[facility] APTTon 08-20-2021 aPTT Coag (Bld) [Time] 58.3 s High 25.0-35.0 [facility] Comment on above: Result Comment: ALL [...] PURPOSE. Performed By: #### 6 2594 #### [facility] [address] [facility]. [address] ARTERIAL BLOOD GAS WITH ICAo n 08-20-2021 BASE EXCESS -2 mmol/L Normal -2-3 The [facility] Comment on above: Order Comment: RESUL TS CHECKED AND CALLED. ACCURATELY READ BACK BY DR CALI Performed By: #### 8 4511 ####[facility] [facility] DELIVERY SYSTEMS MV Normal The [facility] Comment on above: Order Comment: RESUL TS CHECKED AND CALLED. ACCURATELY READ BACK BY DR CALI Performed By: #### 8 4511 ####[facility] [facility] FIO2 50 % Normal [facility] Comment on above: Order Comment: RESUL TS CHECKED AND CALLED. ACCURATELY READ BACK BY DR CALI Performed By: #### 8 4511 ####[place] [address] [address] HCO3 (Bld) [Moles/Vol] 20 mmol/L Low 21-28 [facility] Comment on above: Order Comment: RESUL TS CHECKED AND CALLED. ACCURATELY READ BACK BY DR CALI Performed By: #### 8 4511 ####[facility] [facility].[address] IONIZED CALCIUM 1.09 mmol/L Low 1.13-1.32 The [facility] Comment on above: Order Comment: RESUL TS CHECKED AND CALLED. ACCURATELY READ BACK BY DR CALI Performed By: #### 8 4511 ####[facility] [facility].[address] MIN VOLUME 8.9 Normal [facility] Comment on above: Order Comment: RESUL TS CHECKED AND CALLED. ACCURATELY READ BACK BY DR CALI Performed By: #### 8 4511 ####[facility] [facility].[address] MODALITY AC Normal [facility] Comment on above: Order Comment: RESUL TS CHECKED AND CALLED. ACCURATELY READ BACK BY DR CALI Performed By: #### 8 4511 ####[facility] [facility] Oxygen (Bld) [Partial pressure] 239 mm[Hg] Critically high 83-108 [facility] Comment on above: Order Comment: RESUL TS CHECKED AND CALLED. ACCURATELY READ BACK BY DR CALI Performed By: #### 8 4511 ####[facility] Oxygen saturation in Blood 97.6 % High 94.0-97.0 [facility] Comment on above: Order Comment: RESUL TS CHECKED AND CALLED. ACCURATELY READ BACK BY DR CALI Performed By: #### 8 4511 ####[facility] PCO2 24 mmHg Critically low 35-45 The [facility] Comment on above: Order Comment: RESUL TS CHECKED AND CALLED. ACCURATELY READ BACK BY DR CALI Performed By: #### 8 4511 ####[facility] PEEP 8.0 CMH20 Normal [facility] Comment on above: Order Comment: RESUL TS CHECKED AND CALLED. ACCURATELY READ BACK BY DR CALI Performed By: #### 8 4511 ####[facility] pH (Bld) 7.52 [pH] High 7.35-7.45 [facility] Comment on above: Order Comment: RESUL TS CHECKED AND CALLED. ACCURATELY READ BACK BY DR CALI Performed By: #### 8 4511 ####[facility] Respiratory rate 14 /min Normal The [facility] Comment on above: Order Comment: RESUL TS CHECKED AND CALLED. ACCURATELY READ BACK BY DR CALI Performed By: #### 8 4511 ####[facility] TIDAL VOLUME (VT) CC 550 Normal [facility] Comment on above: Order Comment: RESUL TS CHECKED AND CALLED. ACCURATELY READ BACK BY DR CALI Performed By: #### 8 4511 ####[facility] [place] [address], [facility] BASIC METABOLIC PANELon 07-0 Calcium [Mass/Vol] 6.2 mg/dL Critically low 8.6-10.3 [facility] Comment on above: Order Comment: Check NG Tube Position Performed By: #### 1 0070, 85621, 88986, 64719 ####[facility] [place] [address], [facility] Chloride [Moles/Vol] 112 mmol/L High 98-107 [facility] Comment on above: Order Comment: Check NG Tube Position Performed By: #### 1 0070, 38564, 59057, 01022 ####[facility] [place] [address], [facility] CO2 [Moles/Vol] 17 mmol/L Low 21-31 The [facility] Comment on above: Order Comment: Check NG Tube Position Performed By: #### 1 0070, 48091, 03491, 28802 ####[facility] [place] [address], [facility] Creatinine [Mass/Vol] 0.80 mg/dL Normal 0.60-1.20 [facility] Comment on above: Order Comment: Check NG Tube Position Performed By: #### 1 0070, 64145, 38249, 56406 ####[facility] [place] [address], [facility] GFR/1.73 sq M.predicted among blacks MDRD (S/P/Bld) [Vol rate/Area] mL/min/{1.73_m2} Normal >60 [facility] Comment on above: Order Comment: Check NG Tube Position Performed By: #### 1 0070, 41343, 42494, 89315 ####[facility] [facility] GFR/1.73 sq M.predicted among non-blacks MDRD (S/P/Bld) [Vol rate/Area] mL/min/{1.73_m2} Normal >60 [facility] Comment on above: Order Comment: Check NG Tube Position Performed By: #### 1 0070, 07602, 40890, 67285 ####[facility] [facility] Glucose [Mass/Vol] 123 mg/dL High 70-100 The [facility] Comment on above: Order Comment: Check NG Tube Position Performed By: #### 1 0070, 86170, 52173, [address] ####[place] [address] [facility].[address] Potassium [Moles/Vol] 3.1 mmol/L Low 3.5-5.1 [facility] Comment on above: Order Comment: Check NG Tube Position Performed By: #### 1 0070, 11313, 99245, 19584 ####[place] [address] [facility].[address] Sodium [Moles/Vol] 137 mmol/L Normal 136-145 The [facility] Comment on above: Order Comment: Check NG Tube Position Performed By: #### 1 0070, 50595, 81548, 64476 ####[facility] [facility].[address] Urea nitrogen [Mass/Vol] 31 mg/dL High 7-25 [facility] Comment on above: Order Comment: Check NG Tube Position Performed By: #### 1 0070, 64918, 70439, 55884 ####[facility] [place] [address], [facility] CBC W/DIFFon 08-20-2021 ABS IMM GRANS 0.1 10*3/uL Normal 0.0-0.2 The [facility] Comment on above: Order Comment: Bleed ing s/p recent tracheostomy Performed By: #### 5 0103 ####[facility] [facility] [place] [address], [facility] ABS NEUTROPHILS 9.2 10*3/uL High 1.6-7.6 The [facility] Comment on above: Order Comment: Bleed ing s/p recent tracheostomy Performed By: #### 5 0103 ####[facility] [place] [address], [facility] Basophils (Bld) [#/Vol] 0.0 10*3/uL Normal 0.0-0.2 [facility] Comment on above: Order Comment: Bleed ing s/p recent tracheostomy Performed By: #### 5 0103 ####[facility] [facility] [place] [address], [facility] Basophils/100 WBC (Bld) 0.3 % Normal 0.0-1.0 T [facility] Comment on above: Order Comment: Bleed ing s/p recent tracheostomy Performed By: #### 5 0103 ####[facility] [place] [address], [facility] Eosinophils (Bld) [#/Vol] 0.1 10*3/uL Normal 0.0-0.5 [facility] Comment on above: Order Comment: Bleed ing s/p recent tracheostomy Performed By: #### 5 0103 ####[facility] [place] [address], [facility] Eosinophils/100 WBC (Bld) 0.4 % Normal 0.0-6.0 [facility] Comment on above: Order Comment: Bleed ing s/p recent tracheostomy Performed By: #### 5 0103 ####[facility] [place] [address], [facility] Erythrocyte distribution width (RBC) [Ratio] 17.2 % High 11.5-15.0 [facility] Comment on above: Order Comment: Bleed ing s/p recent tracheostomy Performed By: #### 5 0103 ####[facility] Hematocrit (Bld) [Volume fraction] 23.9 % Low 36.0-45.0 [facility] Comment on above: Order Comment: Bleed ing s/p recent tracheostomy Performed By: #### 5 0103 ####[facility] Hemoglobin (Bld) [Mass/Vol] 8.1 g/dL Low 12.0-15.0 [facility] Comment on above: Order Comment: Bleed ing s/p recent tracheostomy Performed By: #### 5 0103 ####[facility] IMMATURE GRANS 0.6 % Normal 0.0-1.0 The [facility] Comment on above: Order Comment: Bleed ing s/p recent tracheostomy Performed By: #### 5 0103 ####[facility] Lymphocytes (Bld) [#/Vol] 3.3 10*3/uL Normal 1.2-4.0 [facility] Comment on above: Order Comment: Bleed ing s/p recent tracheostomy Performed By: #### 5 0103 ####[facility] Lymphocytes/100 WBC (Bld) 24.4 % Normal 20.0-45.0 [facility] Comment on above: Order Comment: Bleed ing s/p recent tracheostomy Performed By: #### 5 0103 ####[facility] MCH (RBC) [Entitic mass] 30.6 pg Normal 27.0-33.0 [facility] Comment on above: Order Comment: Bleed ing s/p recent tracheostomy Performed By: #### 5 0103 ####[facility] MCHC (RBC) [Mass/Vol] 33.9 g/dL Normal 32.0-35.0 [facility] Comment on above: Order Comment: Bleed ing s/p recent tracheostomy Performed By: #### 5 0103 ####[facility] MCV (RBC) [Entitic vol] 90.2 fL Normal 82.0-98.0 [facility] Comment on above: Order Comment: Bleed ing s/p recent tracheostomy Performed By: #### 5 0103 ####[facility] [address] Monocytes (Bld) [#/Vol] 1.0 10*3/uL Normal 0.1-1.0 [facility] Comment on above: Order Comment: Bleed ing s/p recent tracheostomy Performed By: #### 5 0103 ####[facility] MONOS 7.2 % Normal 5.0-12.0 [facility] Comment on above: Order Comment: Bleed ing s/p recent tracheostomy Performed By: #### 5 0103 ####[facility] Neutrophils/100 WBC (Bld) 67.1 % Normal 40.0-72.0 [facility] Comment on above: Order Comment: Bleed ing s/p recent tracheostomy Performed By: #### 5 3 ####[facility] Nucleated RBC/100 WBC (Bld) [Ratio] 0 % Normal 0-0 [facility] Comment on above: Order Comment: Bleed ing s/p recent tracheostomy Performed By: #### 5 0103 ####[facility]3000 [facility].[address] PLAT CNT 328 10*3/uL Normal 150-400 The [facility] Comment on above: Order Comment: Bleed ing s/p recent tracheostomy Performed By: #### 5 0103 ####[facility] RBC (Bld) [#/Vol] 2.65 10*6/uL Low 3.80-5.00 The [facility] Comment on above: Order Comment: Bleed ing s/p recent tracheostomy Performed By: #### 5 0103 ####[facility] WBC (Bld) [#/Vol] 13.67 10*3/uL High 4.00-10.60 [facility] Comment on above: Order Comment: Bleed ing s/p recent tracheostomy Performed By: #### 5 0103 ####[facility]3000 [facility].[address] ABS IMM GRANS 0.2 10*3/uL Normal 0.0-0.2 The [facility] Comment on above: Performed By: #### 5 0103 ####[facility] ABS NEUTROPHILS 18.9 10*3/uL High 1.6-7.6 The [facility] Comment on above: Performed By: #### 5 0103 ####[facility] Basophils (Bld) [#/Vol] 0.1 10*3/uL Normal 0.0-0.2 [facility] Comment on above: Performed By: #### 5 0103 ####[facility]3000 [facility] [address], [facility] Basophils/100 WBC (Bld) 0.4 % Normal 0.0-1.0 T jj [facility] Comment on above: Performed By: #### 5 3 ####[facility]3000 [facility] [place] [address], [facility] Eosinophils (Bld) [#/Vol] 0.4 10*3/uL Normal 0.0-0.5 [facility] Comment on above: Performed By: #### 5 0103 ####[facility]3000 [place] [address], [facility] Eosinophils/100 WBC (Bld) 1.7 % Normal 0.0-6.0 [facility] Comment on above: Performed By: #### 5 3 ####[facility]3000 [facility].[address] Erythrocyte distribution width (RBC) [Ratio] 17.4 % High 11.5-15.0 [facility] Comment on above: Performed By: #### 5 3 ####[facility]3000 [facility].[address] Hematocrit (Bld) [Volume fraction] 25.5 % Low 36.0-45.0 [facility] Comment on above: Performed By: #### 5 3 ####[facility]3000 [place] [address], [facility] Hemoglobin (Bld) [Mass/Vol] 8.1 g/dL Low 12.0-15.0 [facility] Comment on above: Performed By: #### 3 ####[facility] [place] [address], [facility] IMMATURE GRANS 0.8 % Normal 0.0-1.[address] [facility]ur[facility] Comment on above: Performed By: #### 5 0103 ####[facility]3000 [facility].[address] Lymphocytes (Bld) [#/Vol] 2.8 10*3/uL Normal 1.2-4.0 [facility] Comment on above: Performed By: #### 5 3 ####[facility] Lymphocytes/100 WBC (Bld) 11.7 % Low 20.0-45.0 [facility] Comment on above: Performed By: #### 3 ####[address] MCH (RBC) [Entitic mass] 31.5 pg Normal 27.0-33.0 [facility] Comment on above: Performed By: #### 3 ####[facility] MCHC (RBC) [Mass/Vol] 31.8 g/dL Low 32.0-35.0 [facility] Comment on above: Performed By: #### 5 3 ####[facility] MCV (RBC) [Entitic vol] 99.2 fL High 82.0-98.0 T [facility] Comment on above: Performed By: #### 5 3 ####[facility] [place] [address], [facility] Monocytes (Bld) [#/Vol] 1.5 10*3/uL High 0.1-1.0 [facility] Comment on above: Performed By: #### 102 ####[place] [address], [facility] MONOS 6.2 % Normal 5.0-12.0 [facility] Comment on above: Performed By: #### 5 0103 ####[facility]3000 [facility] [place] [address], [facility] Neutrophils/100 WBC (Bld) 79.2 % High 40.0-72.0 [facility] Comment on above: Performed By: #### 5 0103 ####[facility]3000 [place] [address], [facility] Nucleated RBC/100 WBC (Bld) [Ratio] 0 % Normal 0-0 [facility] Comment on above: Performed By: #### 5 0103 ####[facility]3000 [place] [address], [facility] PLAT CNT 538 10*3/uL High 150-400 [facility] Comment on above: Performed By: #### 5 0103 ####[facility]3000 [place] [address], [facility] RBC (Bld) [#/Vol] 2.57 10*6/uL Low 3.80-5.00 [facility] Comment on above: Performed By: #### 5 0103 ####[facility]3000 [place] [address], [facility] WBC (Bld) [#/Vol] 23.85 10*3/uL High 4.00-10.60 [facility] Comment on above: Performed By: #### 5 0103 ####[facility]3000 [place] [address], [facility] COMP METABOLIC PANELon 08-20 Albumin [Mass/Vol] 2.5 g/dL Low 3.5-5.7 [facility] Comment on above: Performed By: #### 3 5200, 13827 ####[facility] [place] [address], [facility] ALKALINE PHOSPH 314 IU/L High 34-104 [facility] Comment on above: Performed By: #### 3 5199, 11735 ####[facility] [place] [address], [place] ALT [Catalytic activity/Vol] 14 U/L Normal 7-52 [facility] Comment on above: Performed By: #### 3 5199, 91863 ####[facility] [place] [address], [place] AST [Catalytic activity/Vol] 21 U/L Normal 13-39 [facility] Comment on above: Performed By: #### 3 5199, 18082 ####[facility] [place] [address], [place] Bilirubin [Mass/Vol] 0.6 mg/dL Normal 0.3-1.0 [facility] Comment on above: Performed By: #### 3 5199, 64741 ####[facility] [place] [address], [place] Calcium [Mass/Vol] 8.0 mg/dL Low 8.6-10.3 [facility] Comment on above: Performed By: #### 3 5199, 37138 ####[facility] [place] [address], [place] Chloride [Moles/Vol] 101 mmol/L Normal 98-107 [facility] Comment on above: Performed By: #### 3 5199, 05703 ####[facility] [place] [address], [place] CO2 [Moles/Vol] 21 mmol/L Normal 21-31 The [facility] Comment on above: Performed By: #### 3 5199, 24398 ####[facility] [place] [address], [place] Creatinine [Mass/Vol] 0.99 mg/dL Normal 0.60-1.20 [facility] Comment on above: Performed By: #### 3 5199, 44679 ####[facility] [place] [address], [facility] eGFR- non- 58 ml/min/1.73sq m Abnormal >60 [facility] Comment on above: Performed By: #### 3 5199, 91981 ####[facility] [place] [address], [facility] GFR/1.73 sq M.predicted among blacks MDRD (S/P/Bld) [Vol rate/Area] mL/min/{1.73_m2} Normal >60 [facility] Comment on above: Performed By: #### 3 5199, 21508 ####[facility] [place] [address], [facility] Glucose [Mass/Vol] 280 mg/dL High 70-100 The [facility] Comment on above: Performed By: #### 3 5199, 13229 ####[facility] [place] [address], [place] Potassium [Moles/Vol] 4.1 mmol/L Normal 3.5-5.1 [facility] Comment on above: Performed By: #### 3 5199, 95838 ####[facility] [place] [address], [place] Protein [Mass/Vol] 6.5 g/dL Normal 6.0-8.3 The [facility] Comment on above: Performed By: #### 3 5199, 99097 ####[facility] [place] [address], [place] Sodium [Moles/Vol] 134 mmol/L Low 136-145 The [facility] Comment on above: Performed By: #### 3 5199, 82681 ####[facility] Urea nitrogen [Mass/Vol] 32 mg/dL High 7-25 [facility] Comment on above: Performed By: #### 3 5200, 76942 ####[facility] CTA CHESTon 08-20-2021 CTA CHEST [facility] Department of Radiology [address] [place] [address] Patient Name: MEG GEORGES : 1965 Sex: F Age: Race: White Pt. Location: [facility] Patient Status: I Ordered Date: 08/19/2021 [...] report. Electronically signed: Charles Castillo. Transcribed by: [email or web address], User Resident: OLGA LIDIA WILLIS Electronically Signed by: CHARLES CASTILLO @ 08/20/2021 12:54 AM I personally read this/these film(s) with this resident Normal [facility] Comment on above: Order Comment: R/O A telectasis CTA NECKon 08-20-2021 CTA NECK [facility] Department of Radiology [address] [place] [address] Patient Name: MEG GEORGES : 1965 Sex: F Age: Race: White Pt. Location: [facility] Patient Status: I Ordered Date: 08/19/2021 11:15:00 [...] report. Electronically signed: Charles Castillo. Transcribed by: [email or web address], User Resident: OLGA LIDIA WILLIS Electronically Signed by: CHARLES CASTILLO @ 08/20/2021 12:51 AM I personally read this/these film(s) with this resident Normal [facility] Comment on above: Order Comment: Bleed ing s/p recent tracheostomy Endoscopy Reporton Endoscopy Report MR#: [id number] [facility] Pt. Name: Meg Georges Surgery Date: 08/20/2021 Room #: [facility] [id number] Date of : 1965 PROCEDURE NOTE ATTENDING: [...] Pozo M.D. Date Trans: 08/20/2021 05:17 P/ [id number] cc: Johny Beckman M.D. [address] Medicine [place] [address] Neri [address] D.O. [facility] [address] Normal [facility] FIBRIN DEGRADATION PRODUCTon 08-20-2021 FSP 5 ug/ml Abnormal <5 ug/ml [facility] Comment on above: Order Comment: No: D o not add to previous draw Performed By: #### 6 2594 #### [facility] [address] FIBRINOGENon 08-20-2021 FIBRINOGEN 527 mg/dL High 150-425 [facility] Comment on above: Performed By: #### 6 2594 #### [facility] [address] FRESH FROZEN PLASMA 6 UNITSo n 08-20-2021 PRODUCT CODE 1 E2701 Normal [facility] Comment on above: Performed By: #### 8 7006 ####[facility] PRODUCT CODE 2 E2701 Normal [facility] Comment on above: Performed By: #### 8 7006 ####[facility] PRODUCT CODE 3 E2701 Normal [facility] Comment on above: Performed By: #### 8 7006 ####[facility]3000 [facility].[address] PRODUCT CODE 4 E7750 Normal [facility] Comment on above: Performed By: #### 8 7006 ####[facility]3000 [facility].[address] PRODUCT CODE 5 E2701 Normal [facility] Comment on above: Performed By: #### 8 7006 ####[facility]3000 [facility].[address] PRODUCT CODE 6 E2701 Normal [facility] Comment on above: Performed By: #### 8 7006 ####[facility]3000 [facility].[address] PRODUCT STATUS 1 PT Normal The [facility] Comment on above: Result Comment: Resu lt changed by IF on 08/20/2021 13:26. The previous value was XM. Result changed by IF on 08/21/2021 00:30. The previous value was IS. Performed By: #### 8 7006 ####[facility]3000 [facility].[address] PRODUCT STATUS 2 RE Normal The [facility] Comment on above: Result Comment: Resu lt changed by IF on 08/20/2021 05:09. The previous value was XM. Result changed by IF on 08/20/2021 05:16. The previous value was XX. Performed By: #### 8 7006 ####[facility]3000 [facility].[address] PRODUCT STATUS 3 RE Normal The [facility] Comment on above: Result Comment: Resu lt changed by IF on 08/20/2021 05:24. The previous value was XM. Result changed by IF on 08/20/2021 05:48. The previous value was XX. Performed By: #### 8 7006 ####[facility] [place] [address], [facility] PRODUCT STATUS 4 RE Normal The [facility] Comment on above: Result Comment: Resu lt changed by IF on 08/22/2021 16:50. The previous value was XM. Result changed by IF on 08/25/2021 01:00. The previous value was XX. Performed By: #### 8 7006 ####[facility] [place] [address], [place] PRODUCT STATUS 5 RE Normal The [facility] Comment on above: Result Comment: Resu lt changed by IF on 08/20/2021 05:24. The previous value was XM. Result changed by IF on 08/20/2021 05:48. The previous value was XX. Performed By: #### 8 7006 ####[place] [address] [place] [address], [place] PRODUCT STATUS 6 RE Normal The [facility] Comment on above: Result Comment: Resu lt changed by IF on 08/20/2021 05:24. The previous value was XM. Result changed by IF on 08/20/2021 05:48. The previous value was XX. Performed By: #### 8 7006 ####[facility] [place] [address], [place] UNIT ABO 1 A Normal [facility] Comment on above: Performed By: #### 8 7006 ####[facility] [place] [address], [place] Performed By: #### 8 9001 ####[facility] [place] [address], [place] UNIT ABO 2 A Normal [facility] Comment on above: Performed By: #### 8 7006 ####[facility] [place] [address], [place] UNIT ABO 3 A Normal [facility] Comment on above: Performed By: #### 8 7006 ####[facility] [place] [address], [facility] UNIT ABO 4 A Normal [facility] Comment on above: Performed By: #### 8 7006 ####[facility] [place] [address], [facility] UNIT ABO 5 A Normal [facility] Comment on above: Performed By: #### 8 6 ####[facility] [place] [address], [facility] UNIT ABO 6 A Normal [facility] Comment on above: Performed By: #### 8 7006 ####[facility] [place] [address], [facility] UNIT ID 1 [id number] Normal [facility] Comment on above: Performed By: #### 8 7006 ####[facility] [place] [address], [facility] UNIT ID 2 [id number] Normal [facility] Comment on above: Performed By: #### 8 7006 ####[facility] [place] [address], [facility] UNIT ID 3 [id number] Normal [facility] Comment on above: Performed By: #### 8 7006 ####[facility] [place] [address], [facility] UNIT ID 4 [id number] Normal [facility] Comment on above: Performed By: #### 8 7006 ####[facility] [place] [address], [facility] UNIT ID 5 [id number] Normal [facility] Comment on above: Performed By: #### 8 7006 ####[facility] [place] [address], [facility] UNIT ID 6 [id number] Normal [facility] Comment on above: Performed By: #### 8 7005 ####[facility] [place] [address], [facility] UNIT RH 1 Positive Normal [facility] Comment on above: Performed By: #### 8 7005 ####[facility] [place] [address], [facility] Performed By: #### 8 9001 ####[facility] [place] [address], [facility] UNIT RH 2 Positive Normal [facility] Comment on above: Performed By: #### 8 7005 ####[facility] [place] [address], [facility] UNIT RH 3 Positive Normal [facility] Comment on above: Performed By: #### 8 7005 ####[facility] [place] [address], [facility] UNIT RH 4 Positive Normal [facility] Comment on above: Performed By: #### 8 7005 ####[facility] [place] [address], [facility] UNIT RH 5 Positive Normal [facility] Comment on above: Performed By: #### 8 7005 ####[facility] [place] [address], [facility] UNIT RH 6 Positive Normal [facility] Comment on above: Performed By: #### 8 7005 ####[facility] [place] [address], [facility] LACTATE BLOODon 08-20-2021 Lactate [Moles/Vol] 1.3 mmol/L Normal .5-2.2 [facility] Comment on above: Performed By: #### 6 2594 #### [facility] [address] [place] [address], [facility] LIVER BATTERYon 08-20-2021 Albumin [Mass/Vol] 1.8 g/dL Low 3.5-5.7 The [facility] Comment on above: Order Comment: Check NG Tube Position Performed By: #### 1 0070, 70160, 25795, 97129 ####[facility] [place] [address], [facility] ALKALINE PHOSPH 171 IU/L High 34-104 [facility] Comment on above: Order Comment: Check NG Tube Position Performed By: #### 1 0070, 66016, 37293, 05009 ####[facility] [place] [address], [facility] ALT [Catalytic activity/Vol] 10 U/L Normal 7-52 [facility] Comment on above: Order Comment: Check NG Tube Position Performed By: #### 1 0070, 05706, 91726, 07490 ####[facility] [place] [address], [facility] AST [Catalytic activity/Vol] 12 U/L Low 13-39 [facility] Comment on above: Order Comment: Check NG Tube Position Performed By: #### 1 0070, 51155, 29385, 40991 ####[facility] [place] [address], [place] Bilirubin [Mass/Vol] 0.4 mg/dL Normal 0.3-1.0 [facility] Comment on above: Order Comment: Check NG Tube Position Performed By: #### 1 0070, 87964, 52212, 26714 ####[facility] [place] [address], [place] Bilirubin.direct [Mass/Vol] 0.1 mg/dL Normal 0.0-0.2 [facility] Comment on above: Order Comment: Check NG Tube Position Performed By: #### 1 0070, 65907, 63904, 95466 ####[facility] [facility] [place] [address], [facility] Protein [Mass/Vol] 4.6 g/dL Low 6.0-8.3 The [facility] Comment on above: Order Comment: Check NG Tube Position Performed By: #### 1 0070, 75764, 85337, 13301 ####[facility] [facility] [place] [address], [facility] MAGNESIUM BLOODon 08-20-2021 Magnesium [Mass/Vol] 1.4 mg/dL Low 1.9-2.7 [facility] Comment on above: Order Comment: Check NG Tube Position Performed By: #### 1 0070, 01098, 55899, 30211 ####[facility] [facility] [place] [address], [facility] OSMOLALITY BLOODon 2 Osmolality [Osmolality] 309 mosm/kg High 285-305 [facility] Comment on above: Order Comment: No: D o not add to previous draw Performed By: #### 6 2594 #### [facility] [address] [place] [address], [facility] PHOSPHORUS BLOODon 2 Phosphate [Mass/Vol] 2.4 mg/dL Low 2.5-5.0 [facility] Comment on above: Order Comment: Check NG Tube Position Performed By: #### 1 0070, 87339, 38044, 30711 ####[facility] [place] [address], [facility] PLATELET APHERESIS 1 UNITon 08-20-2021 PRODUCT CODE 1 E8341 Normal [facility] Comment on above: Performed By: #### 8 9001 ####[facility] [facility] UNIT ID 1 [id number] Normal The [facility] Comment on above: Performed By: #### 8 9001 ####[facility] PRODUCT STATUS 1 RE Normal The [facility] Comment on above: Result Comment: Resu lt changed by IF on 08/21/2021 01:00. The previous value was XM. Performed By: #### 8 9001 ####[facility] Result Comment: Resu lt changed by IF on 08/21/2021 08:54. The previous value was XM. Result changed by IF on 08/21/2021 18:31. The previous value was XX. Performed By: #### 8 6006 ####[facility] POC GLUCOSE LABon 08-20-2021 Glucose [Mass/Vol] 118 mg/dL High 70-100 [facility] Comment on above: Performed By: #### 8 5499 ####[place] [address] Glucose [Mass/Vol] 142 mg/dL High 70-100 [facility] [facility] Comment on above: Performed By: #### 8 [id number] ####[facility] Glucose [Mass/Vol] 160 mg/dL High 70-100 [facility] Comment on above: Performed By: #### 8 5499 ####[facility] [place] [address], [facility] Glucose [Mass/Vol] 177 mg/dL High 70-100 [facility] Comment on above: Performed By: #### 8 5499 ####[facility] [address] POC SARS COV2 ANTIGEN NEGATI VEon 08-20-2021 POC SARS COV2 ANTIGEN NEG Negative Normal NEGATIVE [facility] Comment on above: Result Comment: Nega [...] antigen from SARS-CoV-2 in direct nasopharyngeal swab (MANAGER INSIDE) specimens from individuals who are suspected of [...] Accreditation. Performed By: #### 3 2044 #### [address] PORTABLE CHEST 1 VIEWon PORTABLE CHEST 1 VIEW [facility] Department of Radiology [address] [place] [id number] Patient Name: MEG GEORGES : 1965 Sex: F Age: Race: White Pt. Location: [id number] Patient Status: I Ordered Date: 08/20/2021 5:20:00 [...] FINDINGS: Enteric tube tip outside the inferior [id number], presumably within the stomach. Stable tracheostomy cannula. Stable cardiomediastinal silhouette. No new focal consolidation, significant effusion, or pneumothorax. Right upper extremity PICC, its tip at the mid SVC. IMPRESSION: Enteric tube tip likely within the stomach, outside the inferior [id number] however Electronically signed: KIKE DICKSON. Transcribed by: [email or web address], User Resident: Electronically Signed by: KIKE DICKSON @ 08/20/2021 07:46 PM Normal [facility] Comment on above: Order Comment: Check NG Tube Position PORTABLE CHEST 1 VIEW [facility] Department of Radiology [address] [place] [address] Patient Name: MEG GEORGES : 1965 Sex: F Age: Race: White Pt. Location: [place] [address] Patient Status: I Ordered Date: 08/20/2021 7:50:00 [...] indeterminate. Electronically signed: Blossom Gongora. Transcribed by: [email or web address], User Resident: BLOSSOM GONGORA Electronically Signed by: BLOSSOM GONGORA @ 08/20/2021 09:10 AM I personally read this/these film(s) with this resident Normal [facility] Comment on above: Order Comment: evalu ate for Atelectasis PORTABLE CHEST 1 VIEW [facility] Department of Radiology [address] [place] [id number] Patient Name: MEG GEORGES : 1965 Sex: F Age: Race: White Pt. Location: [facility] Patient Status: E Ordered Date: 08/19/2021 [...] abnormality. Electronically signed: Darci Monahan. Transcribed by: [email or web address], User Resident: Electronically Signed by: DARCI MONAHAN @ 08/19/2021 10:41 PM Normal [facility] Comment on above: Order Comment: Check NG Tube Position PROTHROMBIN TIMEon 2 INR Coag (PPP) [Relative time] 1.70 {INR} High 0.91-1.16 [facility] Comment on above: Order Comment: Check [...] CHEST 1995;108:231S-246S. Performed By: #### 5 6101 ####[facility] PT Coag (PPP) [Time] 19.7 s High 12.3-14.8 [facility] Comment on above: Order Comment: Check NG Tube Position Result Comment: ALL RESULTS MUST BE INTERPRETED WITH RESPECT TO BLOOD DRAWING ARTIFACT OR DILUTION ERROR OF ANTICOAGULANT AT THE TIME OF SAMPLING. Performed By: #### 5 6101 ####[facility]3000 [facility].[address] INR Coag (PPP) [Relative time] 1.47 {INR} High 0.91-1.16 [facility] Comment on above: Result Comment: ACCC [...] CHEST 1995;108:231S-246S. Performed By: #### 5 6788, [id number], 17885, 29525 ####[facility] [place] [address], [facility] PT Coag (PPP) [Time] 17.7 s High 12.3-14.8 [facility] Comment on above: Result Comment: ALL RESULTS MUST BE INTERPRETED WITH RESPECT TO BLOOD DRAWING ARTIFACT OR DILUTION ERROR OF ANTICOAGULANT AT THE TIME OF SAMPLING. Performed By: #### 5 6788, 80837, [id number], 57482 ####[facility] [id number], [facility] RBC'S 6 UNITSon 08-20-2021 CROSSMATCH INTERP 1 COMP Normal [facility] Comment on above: Performed By: #### 8 6006 ####[facility] [place] [address], [facility] CROSSMATCH INTERP 2 COMP Normal [facility] Comment on above: Performed By: #### 8 6006 ####[facility] [place] [address], [facility] CROSSMATCH INTERP 3 COMP Normal [facility] Comment on above: Performed By: #### 8 6006 ####[facility] [place] [address], [place] CROSSMATCH INTERP 4 COMP Normal [facility] Comment on above: Performed By: #### 8 6006 ####[facility] [place] [address], [place] CROSSMATCH INTERP 5 COMP Normal [facility] Comment on above: Performed By: #### 8 6006 ####[facility] [place] [address], [place] CROSSMATCH INTERP 6 COMP Normal [facility] Comment on above: Performed By: #### 8 6006 ####[facility] [place] [address], [facility] PRODUCT CODE 1 E0336 Normal [facility] Comment on above: Performed By: #### 8 6006 ####[facility] [place] [address], [facility] PRODUCT CODE 2 E0336 Normal [facility] Comment on above: Performed By: #### 8 6006 ####[facility] [place] [address], [facility] PRODUCT CODE 3 E0336 Normal [facility] Comment on above: Performed By: #### 8 6006 ####[facility] [facility] [place] [address], [facility] PRODUCT CODE 4 E0336 Normal [facility] Comment on above: Performed By: #### 8 6006 ####[facility] [facility] [address], [facility] PRODUCT CODE 5 E0336 Normal [facility] Comment on above: Performed By: #### 8 6006 ####[facility] [facility] [address], [facility] PRODUCT CODE 6 E0336 Normal [facility] Comment on above: Performed By: #### 8 6006 ####[facility] [place] [address], [facility] PRODUCT STATUS 2 RE Normal The [facility] Comment on above: Result Comment: Resu lt changed by IF on 08/20/2021 05:40. The previous value was XM. Result changed by IF on 08/20/2021 05:48. The previous value was XX. Performed By: #### 8 6006 ####[facility] [place] [address], [place] PRODUCT STATUS 3 RE Normal The [facility] Comment on above: Result Comment: Resu lt changed by IF on 08/22/2021 01:00. The previous value was XM. Performed By: #### 8 6006 ####[facility] [place] [address], [place] PRODUCT STATUS 4 RE Normal The [facility] Comment on above: Result Comment: Resu lt changed by IF on 08/20/2021 05:40. The previous value was XM. Result changed by IF on 08/20/2021 05:48. The previous value was XX. Performed By: #### 8 6006 ####[facility] [place] [address], [place] PRODUCT STATUS 5 RE Normal The [facility] Comment on above: Result Comment: Resu lt changed by IF on 08/22/2021 01:00. The previous value was XM. Performed By: #### 8 6006 ####[facility] [place] [address], [place] PRODUCT STATUS 6 RE Normal The [facility] Comment on above: Result Comment: Resu lt changed by IF on 08/21/2021 08:54. The previous value was XM. Result changed by IF on 08/22/2021 01:00. The previous value was XX. Performed By: #### 8 6006 ####[facility] [place] [address], [place] UNIT ABO 1 A Normal [facility] Comment on above: Performed By: #### 8 6006 ####[facility] [place] [address], [place] UNIT ABO 2 A Normal [facility] Comment on above: Performed By: #### 8 6006 ####[facility] [place] [address], [place] UNIT ABO 3 A Normal [facility] Comment on above: Performed By: #### 8 6006 ####[facility] [place] [address], [facility] UNIT ABO 4 A Normal [facility] Comment on above: Performed By: #### 8 6006 ####[facility] [place] [address], [facility] UNIT ABO 5 A Normal [facility] Comment on above: Performed By: #### 8 6006 ####[facility] [place] [address], [facility] UNIT ABO 6 A Normal [facility] Comment on above: Performed By: #### 8 6006 ####[facility] [place] [address], [facility] UNIT ID 1 [id number] Normal [facility] Comment on above: Performed By: #### 8 6006 ####[facility] [place] [address], [facility] UNIT ID 2 [id number] Normal [facility] Comment on above: Performed By: #### 8 6006 ####[facility] [place] [address], [facility] UNIT ID 3 [id number] Normal [facility] Comment on above: Performed By: #### 8 6006 ####[facility] [place] [address], [facility] UNIT ID 4 [id number] Normal [facility] Comment on above: Performed By: #### 8 6006 ####[facility] [place] [address], [facility] UNIT ID 5 [id number] Normal [facility] Comment on above: Performed By: #### 8 6006 ####[facility] [place] [address], [facility] UNIT ID 6 [id number] Normal [facility] Comment on above: Performed By: #### 8 6006 ####[facility] [place] [address], [facility] UNIT RH 1 Positive Normal [facility] Comment on above: Performed By: #### 8 6006 ####[facility] [place] [address], [facility] UNIT RH 2 Positive Normal [facility] Comment on above: Performed By: #### 8 6006 ####[facility] [place] [address], [facility] UNIT RH 3 Positive Normal [facility] Comment on above: Performed By: #### 8 6006 ####[facility] [place] [address], [facility] UNIT RH 4 Positive Normal [facility] Comment on above: Performed By: #### 8 6006 ####[facility] [place] [address], [facility] UNIT RH 5 Positive Normal [facility] Comment on above: Performed By: #### 8 6006 ####[facility] [place] [address], [facility] UNIT RH 6 Positive Normal [facility] Comment on above: Performed By: #### 8 6006 ####[facility] [place] [address], [facility] TRIGLYCERIDES BLOODon 2021 Triglyceride [Mass/Vol] 147 mg/dL Normal 40-149 T [facility] Comment on above: Order Comment: No: D o not add to previous draw Result Comment: TRIG LYCERIDE REFERENCE RANGE: 20 YEARS AND OLDER CARDIOVASCULAR RISK LESS THAN 150 mg/dl LOW RISK 150 TO 199 mg/dl BORDERLINE RISK 200 mg/dl AND GREATER HIGH RISK Performed By: #### 6 2594 #### [facility] [address] [place] [address], [facility] TROPONIN-Ion 08-20-2021 Troponin I.cardiac [Mass/Vol] 0.03 ng/mL Normal 0.00-0.04 [facility] Comment on above: Result Comment: REFE RENCE RANGES: 0.00 - 0.04 ng/ml NORMAL 0.05 - 0.50 ng/ml INDETERMINATE > 0.50 ng/ml CONSISTENT WITH AN M.I. Performed By: #### 3 5200, 88562 ####[facility] TYPE AND CROSSMATCHon 2021 ABO INTERPRETATION A Normal [facility] Comment on above: Performed By: #### 6 2594 #### [facility] [address] [place] [address], [facility] RH INTERPRETATION Positive Normal [facility] Comment on above: Performed By: #### 6 2594 #### [facility] [address] [place] [address], [facility] rbc emergency releaseon 07-0 CROSSMATCH INTERP 1 COMP Normal The [facility] Comment on above: Performed By: #### R BCER ####[facility] CROSSMATCH INTERP 2 COMP Normal [facility] Comment on above: Result Comment: This result added by IF on 08/20/2021 02:44. Performed By: #### R BCER ####[facility] [place] [address], [facility] CROSSMATCH INTERP 3 COMP Normal [facility] Comment on above: Result Comment: This result added by IF on 08/20/2021 02:44. Performed By: #### R BCER ####[facility]3000 [facility].[address] PRODUCT CODE 1 E0685 Normal The [facility] Comment on above: Performed By: #### R BCER ####[facility]3000 [facility].[address] PRODUCT CODE 2 E0336 Normal [facility] Comment on above: Performed By: #### R BCER ####[facility]3000 [facility].[address] PRODUCT CODE 3 E0685 Normal [facility] Comment on above: Performed By: #### R BCER ####[facility]3000 [facility].[address] PRODUCT STATUS 1 PT Normal The [facility] Comment on above: Result Comment: Resu lt changed by IF on 08/20/2021 02:42. The previous value was EI. Result changed by IF on 08/21/2021 00:30. The previous value was PI. Performed By: #### R BCER ####[facility]3000 [facility].[address] PRODUCT STATUS 2 PT Normal The [facility] Comment on above: Result Comment: Resu lt changed by IF on 08/20/2021 02:44. The previous value was EI. Result changed by IF on 08/21/2021 00:30. The previous value was PI. Performed By: #### R BCER ####[facility]3000 [facility].[address] PRODUCT STATUS 3 PT Normal The [facility] Comment on above: Result Comment: Resu lt changed by IF on 08/20/2021 02:44. The previous value was EI. Result changed by IF on 08/21/2021 00:30. The previous value was PI. Performed By: #### R BCER ####[facility] [place] [address], [facility] UNIT ABO 1 O Normal [facility] Comment on above: Performed By: #### R BCER ####[facility] [place] [address], [facility] UNIT ABO 2 O Normal [facility] Comment on above: Performed By: #### R BCER ####[facility] [place] [address], [facility] UNIT ABO 3 O Normal [facility] Comment on above: Performed By: #### R BCER ####[facility] [place] [address], [facility] UNIT ID 1 [id number] Normal The [facility] Comment on above: Performed By: #### R BCER ####[facility] [place] [address], [facility] UNIT ID 2 [id number] Normal The [facility] Comment on above: Performed By: #### R BCER ####[facility] [place] [address], [facility] UNIT ID 3 [id number] Normal The [facility] Comment on above: Performed By: #### R BCER ####[facility] [place] [address], [facility] UNIT RH 1 Negative Normal [facility] Comment on above: Performed By: #### R BCER ####[facility] [place] [address], [place] UNIT RH 2 Negative Normal [facility] Comment on above: Performed By: #### R BCER ####[facility] [place] [address], [facility] UNIT RH 3 Negative Normal [facility] Comment on above: Performed By: #### R BCER ####[facility] BRAIN WO CONTRASTon 08-15 CT BRAIN WO CONTRAST [facility] Department of Radiology [address] [place] [address] Patient Name: MEG GEORGES : 1965 Sex: F Age: Race: White Pt. Location: LPOP Patient Status: Ordered Date: 08/15/2021 12:05:00 PM Completed Date: 08/15/2021 04:06 PM Requesting Provider: GANGA SAVAGE Attending Provider: Report Copy To: Signs & Symptoms: R/O Bleed History: Order in [facility] [phone] Trach/vent Comments: Exam: CT BRAIN WO CONTRAST [...] findings. Electronically signed: Angel Beal. Transcribed by: [email or web address], User Resident: Electronically Signed by: ANGEL BEAL @ 08/15/2021 04:12 PM Normal [facility] Basic Metabolic Panel w/ Ref rafael to MGon 08-10-2021 Anion gap [Moles/Vol] 11 mmol/L 9 - 17 mmol/L [facility] Calcium [Mass/Vol] 8.5 mg/dL Low 8.6 - 10. 4 mg/dL [facility] Chloride [Moles/Vol] 107 mmol/L 98 - 10 7 mmol/L [facility] CO2 [Moles/Vol] 24 mmol/L 20 - 31 mmol/L [facility] Creatinine [Mass/Vol] 0.54 mg/dL 0.50 - 0.90 mg/dL [facility] GFR >60 >60 mL/min [facility] GFR Non- >60 >60 mL/min [facility] GFR/1.73 sq M.predicted MDRD (S/P/Bld) [Vol rate/Area] [facility] Glucose [Mass/Vol] 150 mg/dL High 70 - 99 mg/dL [facility] Interpretation and review of laboratory results Abnormal [facility] Potassium [Moles/Vol] 3.3 mmol/L Low 3.7 - 5.3 mmol/L [facility] Sodium [Moles/Vol] 142 mmol/L 135 - 144 mmol/L [facility] Urea nitrogen (BldV) [Mass/Vol] 11 mg/dL 6 - 20 mg/dL [facility] CBC with Auto Differentialon 08-10-2021 Absolute Eos # 0.45 High [facility] Absolute Immature Granulocyte <0.03 [facility] Absolute Lymph # 2.27 [facility] Absolute [place] # 0.58 [facility] Basophils (Bld) [#/Vol] 0.05 10*3/uL [facility] Basophils/100 WBC (Bld) 1 % 0 - 2 % B ON [facility] Eosinophils/100 WBC (Bld) 5 % High 1 - 4 % [facility] Hematocrit (Bld) [Volume fraction] 28.0 % Low 36.3 - 47.1 % [facility] Hemoglobin (Bld) [Mass/Vol] 8.9 g/dL Low 11.9 - 15.1 g/dL [facility] Immature granulocytes/100 WBC (Bld) 0 % 0 [facility] Interpretation and review of laboratory results Abnormal [facility] Lymphocytes/100 WBC (Bld) 25 % 24 - 43 % [facility] MCH (RBC) [Entitic mass] 31.3 pg 25.2 - 33.5 pg [facility] MCHC (RBC) [Mass/Vol] 31.8 g/dL 28.4 - 34.8 g/dL [facility] MCV (RBC) [Entitic vol] 98.6 fL 82.6 - 102.9 fL [facility] Monocytes/100 WBC (Bld) 7 % 3 - 12 % B ON [facility] NRBC Automated 0.0 0.0 per 100 WBC [facility] Platelet distribution width (Bld) [Ratio] 17.5 % High 11.8 - 14.4 % [facility] Platelet mean volume (Bld) [Entitic vol] 8.8 fL 8.1 - 13.5 fL [facility] Platelets (Bld) [#/Vol] 576 10*3/uL High [facility] RBC (Bld) [#/Vol] 2.84 10*6/uL Low 3.95 - 5.1 1 m/uL [facility] RBC (Bld) [#/Vol] ANISOCYTOSIS PRESENT [facility] Seg Neutrophils 62 % 36 - 65 % [facility] Segs Absolute 5.62 [facility] WBC (Bld) [#/Vol] 9.0 10*3/uL [facility] Magnesiumon 08-10-2021 Magnesium [Mass/Vol] 1.8 mg/dL 1.6 - 2 .6 mg/dL [facility] POC Glucose Fingerstickon Glucose [Mass/Vol] 188 mg/dL High 65 - 105 mg/dL [facility] Interpretation and review of laboratory results Abnormal [facility] Glucose [Mass/Vol] 218 mg/dL High 65 - 105 mg/dL [facility] Interpretation and review of laboratory results Abnormal [facility] Glucose [Mass/Vol] 133 mg/dL High 65 - 105 mg/dL [facility] Interpretation and review of laboratory results Abnormal [facility] POC Glucose Fingerstickon Glucose [Mass/Vol] 204 mg/dL High 65 - 105 mg/dL [facility] Interpretation and review of laboratory results Abnormal [facility] Glucose [Mass/Vol] 184 mg/dL High 65 - 105 mg/dL [facility] Interpretation and review of laboratory results Abnormal [facility] Glucose [Mass/Vol] 202 mg/dL High 65 - 105 mg/dL [facility] Interpretation and review of laboratory results Abnormal [facility] Glucose [Mass/Vol] 126 mg/dL High 65 - 105 mg/dL [facility] Interpretation and review of laboratory results Abnormal [facility] Basic Metabolic Panel w/ Ref rafael to MGon 08-08-2021 Anion gap [Moles/Vol] 11 mmol/L 9 - 17 mmol/L [facility] Calcium [Mass/Vol] 7.9 mg/dL Low 8.6 - 10. 4 mg/dL [facility] Chloride [Moles/Vol] 108 mmol/L High 98 - 10 7 mmol/L [facility] CO2 [Moles/Vol] 22 mmol/L 20 - 31 mmol/L [facility] [facility] Creatinine [Mass/Vol] 0.59 mg/dL 0.50 - 0.90 mg/dL [facility] GFR >60 >60 mL/min [facility] GFR Non- >60 >60 mL/min [facility] GFR/1.73 sq M.predicted MDRD (S/P/Bld) [Vol rate/Area] [facility] Glucose [Mass/Vol] 193 mg/dL High 70 - 99 mg/dL [facility] Interpretation and review of laboratory results Abnormal [facility] Potassium [Moles/Vol] 3.8 mmol/L 3.7 - 5.3 mmol/L [facility] Sodium [Moles/Vol] 141 mmol/L 135 - 144 mmol/L [facility] Urea nitrogen (BldV) [Mass/Vol] 11 mg/dL 6 - 20 mg/dL [facility] CBC with Auto Differentialon 08-08-2021 Absolute Eos # 0.29 HENSEL S [facility] Absolute Immature Granulocyte 0.04 [facility] Absolute Lymph # 2.17 [facility] Absolute [place] # 0.64 [facility] Basophils (Bld) [#/Vol] 0.04 10*3/uL [facility] Basophils/100 WBC (Bld) 0 % 0 - 2 % B [facility] Eosinophils/100 WBC (Bld) 3 % 1 - 4 % [facility] Hematocrit (Bld) [Volume fraction] 24.6 % Low 36.3 - 47.1 % [facility] Hemoglobin (Bld) [Mass/Vol] 8.0 g/dL Low 11.9 - 15.1 g/dL [facility] Immature granulocytes/100 WBC (Bld) 0 % 0 [facility] Interpretation and review of laboratory results Abnormal [facility] Lymphocytes/100 WBC (Bld) 23 % Low 24 - 43 % [facility] MCH (RBC) [Entitic mass] 31.7 pg 25.2 - 33.5 pg [facility] MCHC (RBC) [Mass/Vol] 32.5 g/dL 28.4 - 34.8 g/dL [facility] MCV (RBC) [Entitic vol] 97.6 fL 82.6 - 102.9 fL [facility] Monocytes/100 WBC (Bld) 7 % 3 - 12 % B ON [facility] NRBC Automated 0.0 0.0 per 100 WBC [facility] Platelet distribution width (Bld) [Ratio] 17.8 % High 11.8 - 14.4 % [facility] Platelet mean volume (Bld) [Entitic vol] 8.9 fL 8.1 - 13.5 fL [facility] Platelets (Bld) [#/Vol] 514 10*3/uL High [facility] RBC (Bld) [#/Vol] 2.52 10*6/uL Low 3.95 - 5.1 1 m/uL [facility] RBC (Bld) [#/Vol] ANISOCYTOSIS PRESENT [facility] Seg Neutrophils 67 % High 36 - 65 % [facility] Segs Absolute 6.36 [facility] WBC (Bld) [#/Vol] 9.5 10*3/uL [facility] EKG 12 LeadOrdered By: Armando Galloway on 08-08-2021 Atrial Rate 90 BPM [facility] Work Phone: P [place] 43 degrees [facility] Work Phone: P-R Interval 122 ms [facility] Work Phone: Q-T Interval 374 ms [facility] Work Phone: QRS Duration 78 ms [facility] Work Phone: QTc Calculation (Bazett) 457 ms [facility] Work Phone: R [place] -4 degrees [facility] Work Phone: T [place] 51 degrees [facility] Work Phone: Ventricular Rate 90 BPM [facility] [employer] Work Phone: [facility] Work Phone: EKG 12 Leadon 08-08-2021 PN STV MUSE [employer] Work Phone: POC Glucose Fingerstickon Glucose [Mass/Vol] 147 mg/dL High 65 - 105 mg/dL [facility] Interpretation and review of laboratory results Abnormal [facility] [employer] [facility] Glucose [Mass/Vol] 157 mg/dL High 65 - 105 mg/dL [facility] [employer]ge[employer] Biopl[employer] HEALTH Interpretation and review of laboratory results Abnormal [facility] Glucose [Mass/Vol] 207 mg/dL High 65 - 105 mg/dL [facility] [employer] HEALTH Interpretation and review of laboratory results Abnormal [facility] Glucose [Mass/Vol] 214 mg/dL High 65 - 105 mg/dL [facility] [employer] HEALTH Interpretation and review of laboratory results Abnormal [facility]ge[facility] BioplasticsY HEALTH [facility] SECticketstreetY HEALTH POC Glucose Fingerstickon Glucose [Mass/Vol] 206 mg/dL High 65 - 105 mg/dL [facility] [employer] HEALTH Interpretation and review of laboratory results Abnormal [facility] Glucose [Mass/Vol] 202 mg/dL High 65 - 105 mg/dL [facility] [employer] HEALTH Interpretation and review of laboratory results Abnormal [facility] Glucose [Mass/Vol] 179 mg/dL High 65 - 105 mg/dL [facility] SECticketstreet[facility] HEALTH Interpretation and review of laboratory results Abnormal [facility] Glucose [Mass/Vol] 144 mg/dL High 65 - 105 mg/dL [facility] [employer] [facility] Interpretation and review of laboratory results Abnormal [facility] Glucose [Mass/Vol] 154 mg/dL High 65 - 105 mg/dL [facility] SECticket[facility]Y HEALTH Interpretation and review of laboratory results Abnormal [facility] Glucose [Mass/Vol] 150 mg/dL High 65 - 105 mg/dL [facility] [employer] [facility] Interpretation and review of laboratory results Abnormal [facility] Glucose [Mass/Vol] 153 mg/dL High 65 - 105 mg/dL [facility] [employer] Interpretation and review of laboratory results Abnormal [facility]ITALticketstreetPERSON [facility]PITALticketstreet [employer] TSHon 08-07-2021 Interpretation and review of laboratory results Abnormal [facility] [employer] TSH Qn 7.90 m[IU]/L High [facility] [employer] [facility] XR CERVICAL SPINE FLEXION AN D EXTENSIONon 08-07-2021 MHPN RIS CONSOLIDATED MHPN RIS CONSOLIDATED [facility] [employer] Work Phone: Radiology Study observation (narrative) ARASELI [employer] [facility] [employer] Work Phone: XR CERVICAL SPINE FLEXION AN D EXTENSIONOrdered By: Paramjit Saenz on 08-07-2021 [facility] Work Phone: Basic Metabolic Panel w/ Ref rafael to MGon 08-06-2021 Anion gap [Moles/Vol] 11 mmol/L 9 - 17 mmol/L [facility] Calcium [Mass/Vol] 8.5 mg/dL Low 8.6 - 10. 4 mg/dL [facility] Chloride [Moles/Vol] 109 mmol/L High 98 - 10 7 mmol/L [facility] CO2 [Moles/Vol] 23 mmol/L 20 - 31 mmol/L [facility] Creatinine [Mass/Vol] 0.55 mg/dL 0.50 - 0.90 mg/dL [facility] GFR >60 >60 mL/min [facility] GFR Non- >60 >60 mL/min [facility] GFR/1.73 sq M.predicted MDRD (S/P/Bld) [Vol rate/Area] [facility]ITALticketstreet[facility] Glucose [Mass/Vol] 48 mg/dL Low 70 - 99 mg/dL [facility] [employer] Interpretation and review of laboratory results Abnormal [facility] Potassium [Moles/Vol] 3.6 mmol/L Low 3.7 - 5.3 mmol/L [facility] [employer] Sodium [Moles/Vol] 143 mmol/L 135 - 144 mmol/L [facility] [employer] Urea nitrogen (BldV) [Mass/Vol] 11 mg/dL 6 - 20 mg/dL [facility] CBC with Auto Differentialon 08-06-2021 Absolute Eos # 0.28 [facility] SECOUR S [facility] Absolute Immature Granulocyte 0.07 [facility] Absolute Lymph # 2.04 [facility] URS [facility] Absolute [place] # 0.61 [facility] Basophils (Bld) [#/Vol] 0.04 10*3/uL [facility] Basophils/100 WBC (Bld) 0 % 0 - 2 % B ON [facility] Eosinophils/100 WBC (Bld) 2 % 1 - 4 % [facility] Hematocrit (Bld) [Volume fraction] 26.3 % Low 36.3 - 47.1 % [facility] Hemoglobin (Bld) [Mass/Vol] 8.6 g/dL Low 11.9 - 15.1 g/dL [facility] Immature granulocytes/100 WBC (Bld) 1 % High 0 [facility] Interpretation and review of laboratory results Abnormal [facility] Lymphocytes/100 WBC (Bld) 17 % Low 24 - 43 % [facility] MCH (RBC) [Entitic mass] 31.9 pg 25.2 - 33.5 pg [facility] MCHC (RBC) [Mass/Vol] 32.7 g/dL 28.4 - 34.8 g/dL [facility] MCV (RBC) [Entitic vol] 97.4 fL 82.6 - 102.9 fL [facility] Monocytes/100 WBC (Bld) 5 % 3 - 12 % B ON [facility] NRBC Automated 0.0 0.0 per 100 WBC [facility] Platelet distribution width (Bld) [Ratio] 18.0 % High 11.8 - 14.4 % [facility] Platelet mean volume (Bld) [Entitic vol] 8.4 fL 8.1 - 13.5 fL [facility] Platelets (Bld) [#/Vol] 565 10*3/uL High [facility] RBC (Bld) [#/Vol] 2.70 10*6/uL Low 3.95 - 5.1 1 m/uL [facility] RBC (Bld) [#/Vol] ANISOCYTOSIS PRESENT [facility] Seg Neutrophils 75 % High 36 - 65 % [facility] Segs Absolute 9.28 High [facility] WBC (Bld) [#/Vol] 12.3 10*3/uL High [facility] No Panel Informationon 08-06 Interpretation and review of laboratory results Abnormal [facility] POC Glucose Fingerstickon Glucose [Mass/Vol] 158 mg/dL High 65 - 105 mg/dL [facility] Interpretation and review of laboratory results Abnormal [facility] Glucose [Mass/Vol] 125 mg/dL High 65 - 105 mg/dL [facility] Interpretation and review of laboratory results Abnormal [facility] Glucose [Mass/Vol] 128 mg/dL High 65 - 105 mg/dL [facility] Interpretation and review of laboratory results Abnormal [facility] Glucose [Mass/Vol] 106 mg/dL High 65 - 105 mg/dL [facility] Interpretation and review of laboratory results Abnormal [facility] Glucose [Mass/Vol] 109 mg/dL High 65 - 105 mg/dL [facility] Interpretation and review of laboratory results Abnormal [facility] Glucose [Mass/Vol] 39 mg/dL Critically low 65 - 10 5 mg/dL [facility] Interpretation and review of laboratory results Abnormal [facility] Glucose [Mass/Vol] 43 mg/dL Low 65 - 105 mg/dL [facility] Glucose [Mass/Vol] 116 mg/dL High 65 - 105 mg/dL [facility] Arterial Blood Gas, POCon FIO2 30.0 [facility] HCO3 (Bld) [Moles/Vol] 26.0 mmol/L 21.0 - 28.0 mmol/L [facility] O2 Device/Flow/% Adult Ventilator [facility] Oxygen saturation in Blood 99 % High 94.0 - 98.0 % [facility] POC pCO2 38.7 [facility] POC pH 7.435 [facility] POC PO2 112.3 High [facility] Positive Base Excess, Art 2 [facility] Sample Site Arterial Line [facility] Basic Metabolic Panel w/ Ref rafael to MGon 08-05-2021 Anion gap [Moles/Vol] 11 mmol/L 9 - 17 mmol/L [facility] Calcium [Mass/Vol] 8.5 mg/dL Low 8.6 - 10. 4 mg/dL [facility] Chloride [Moles/Vol] 109 mmol/L High 98 - 10 7 mmol/L [facility] CO2 [Moles/Vol] 23 mmol/L 20 - 31 mmol/L [facility] Creatinine [Mass/Vol] 0.53 mg/dL 0.50 - 0.90 mg/dL [facility] GFR >60 >60 mL/min [facility] GFR Non- >60 >60 mL/min [facility] GFR/1.73 sq M.predicted MDRD (S/P/Bld) [Vol rate/Area] [facility] Glucose [Mass/Vol] 121 mg/dL High 70 - 99 mg/dL [facility] Interpretation and review of laboratory results Abnormal [facility] Potassium [Moles/Vol] 3.5 mmol/L Low 3.7 - 5.3 mmol/L [facility] Sodium [Moles/Vol] 143 mmol/L 135 - 144 mmol/L [facility] Urea nitrogen (BldV) [Mass/Vol] 14 mg/dL 6 - 20 mg/dL [facility] CBC with Auto Differentialon 08-05-2021 Absolute Eos # 0.25 [facility] Absolute Immature Granulocyte 0.05 [facility] Absolute Lymph # 1.83 [facility] Absolute [place] # 0.57 [facility] Basophils (Bld) [#/Vol] 10*3/uL B ON [facility] Basophils/100 WBC (Bld) 0 % 0 - 2 % B ON [facility] Eosinophils/100 WBC (Bld) 3 % 1 - 4 % [facility] Hematocrit (Bld) [Volume fraction] 24.2 % Low 36.3 - 47.1 % [facility] Hemoglobin (Bld) [Mass/Vol] 7.7 g/dL Low 11.9 - 15.1 g/dL [facility] Immature granulocytes/100 WBC (Bld) 1 % High 0 [facility] Interpretation and review of laboratory results Abnormal [facility] Lymphocytes/100 WBC (Bld) 19 % Low 24 - 43 % [facility] MCH (RBC) [Entitic mass] 31.2 pg 25.2 - 33.5 pg [facility] MCHC (RBC) [Mass/Vol] 31.8 g/dL 28.4 - 34.8 g/dL [facility] MCV (RBC) [Entitic vol] 98.0 fL 82.6 - 102.9 fL [facility] Monocytes/100 WBC (Bld) 6 % 3 - 12 % B [facility] NRBC Automated 0.0 0.0 per 100 WBC [facility] Platelet distribution width (Bld) [Ratio] 18.3 % High 11.8 - 14.4 % [facility] Platelet mean volume (Bld) [Entitic vol] 8.6 fL 8.1 - 13.5 fL [facility] Platelets (Bld) [#/Vol] 458 10*3/uL High [facility] RBC (Bld) [#/Vol] 2.47 10*6/uL Low 3.95 - 5.1 1 m/uL [facility] RBC (Bld) [#/Vol] ANISOCYTOSIS PRESENT [facility] Seg Neutrophils 71 % High 36 - 65 % [facility] Segs Absolute 6.77 [facility] WBC (Bld) [#/Vol] 9.5 10*3/uL [facility] Magnesiumon 08-05-2021 Magnesium [Mass/Vol] 1.8 mg/dL 1.6 - 2 .6 mg/dL [facility] No Panel Informationon 08-05 Interpretation and review of laboratory results Abnormal [facility] POC Glucose Fingerstick[employer] Glucose [Mass/Vol] 130 mg/dL High 65 - 105 mg/dL [facility] Interpretation and review of laboratory results Abnormal [facility] Glucose [Mass/Vol] 139 mg/dL High 65 - 105 mg/dL [facility] Interpretation and review of laboratory results Abnormal [facility] Glucose [Mass/Vol] 126 mg/dL High 65 - 105 mg/dL [facility] Interpretation and review of laboratory results Abnormal [facility] Glucose [Mass/Vol] 151 mg/dL High 65 - 105 mg/dL [facility] Interpretation and review of laboratory results Abnormal [facility] POCT Glucoseon 08-05-2021 Glucose [Mass/Vol] 112 mg/dL High 74 - 100 mg/dL [facility] [employer] Basic Metabolic Panel w/ Ref rafael to MGon 08-04-2021 Anion gap [Moles/Vol] 11 mmol/L 9 - 17 mmol/L [facility] Calcium [Mass/Vol] 8.1 mg/dL Low 8.6 - 10. 4 mg/dL [facility] Chloride [Moles/Vol] 108 mmol/L High 98 - 10 7 mmol/L [facility] CO2 [Moles/Vol] 22 mmol/L 20 - 31 mmol/L [facility] [employer] [facility] Creatinine [Mass/Vol] 0.57 mg/dL 0.50 - 0.90 mg/dL [facility] GFR >60 >60 mL/min [facility] GFR Non- >60 >60 mL/min [facility] [employer] [facility]PAR[facility] GFR/1.73 sq M.predicted MDRD (S/P/Bld) [Vol rate/Area] [facility] Glucose [Mass/Vol] 195 mg/dL High 70 - 99 mg/dL [facility] Interpretation and review of laboratory results Abnormal [facility] [employer] [facility]PAR[facility] Potassium [Moles/Vol] 3.5 mmol/L Low 3.7 - 5.3 mmol/L [facility] Sodium [Moles/Vol] 141 mmol/L 135 - 144 mmol/L [facility] Urea nitrogen (BldV) [Mass/Vol] 17 mg/dL 6 - 20 mg/dL [facility] CBC with Auto Differentialon 08-04-2021 Absolute Eos # 0.24 [facility] Absolute Immature Granulocyte 0.07 [facility] Absolute Lymph # 1.77 [facility] [facility] Absolute [place] # 0.72 [facility] RS [facility] Basophils (Bld) [#/Vol] 10*3/uL B ON [facility] Basophils/100 WBC (Bld) 0 % 0 - 2 % B ON [facility] Eosinophils/100 WBC (Bld) 2 % 1 - 4 % [facility] Hematocrit (Bld) [Volume fraction] 23.7 % Low 36.3 - 47.1 % [facility] Hemoglobin (Bld) [Mass/Vol] 8.0 g/dL Low 11.9 - 15.1 g/dL [facility] Immature granulocytes/100 WBC (Bld) 1 % High 0 [facility] Interpretation and review of laboratory results Abnormal [facility] Lymphocytes/100 WBC (Bld) 17 % Low 24 - 43 % [facility] MCH (RBC) [Entitic mass] 32.3 pg 25.2 - 33.5 pg [facility] MCHC (RBC) [Mass/Vol] 33.8 g/dL 28.4 - 34.8 g/dL [facility] MCV (RBC) [Entitic vol] 95.6 fL 82.6 - 102.9 fL [facility] Monocytes/100 WBC (Bld) 7 % 3 - 12 % B ON [facility] NRBC Automated 0.0 0.0 per 100 WBC [facility] Platelet distribution width (Bld) [Ratio] 18.4 % High 11.8 - 14.4 % [facility] Platelet mean volume (Bld) [Entitic vol] 8.7 fL 8.1 - 13.5 fL [facility] Platelets (Bld) [#/Vol] 429 10*3/uL [facility] RBC (Bld) [#/Vol] 2.48 10*6/uL Low 3.95 - 5.1 1 m/uL [facility] RBC (Bld) [#/Vol] ANISOCYTOSIS PRESENT [facility] Seg Neutrophils 73 % High 36 - 65 % [facility] Segs Absolute 7.64 [facility] WBC (Bld) [#/Vol] 10.5 10*3/uL [facility] Lipaseon 08-04-2021 Lipase [Catalytic activity/Vol] 16 U/L 13 - 60 U/L [facility] Magnesiumon 08-04-2021 Magnesium [Mass/Vol] 1.9 mg/dL 1.6 - 2 .6 mg/dL [facility] POC Glucose Fingerstickon Glucose [Mass/Vol] 170 mg/dL High 65 - 105 mg/dL [facility] Interpretation and review of laboratory results Abnormal [facility] Glucose [Mass/Vol] 118 mg/dL High 65 - 105 mg/dL [facility] Interpretation and review of laboratory results Abnormal [facility] Glucose [Mass/Vol] 226 mg/dL High 65 - 105 mg/dL [facility] Interpretation and review of laboratory results Abnormal [facility] Glucose [Mass/Vol] 192 mg/dL High 65 - 105 mg/dL [facility] Interpretation and review of laboratory results Abnormal [facility] Arterial Blood Gas, POCon Adarsh Test NOT APPLICABLE [facility] FIO2 30.0 [facility] HCO3 (Bld) [Moles/Vol] 24.5 mmol/L 21.0 - 28.0 mmol/L [facility] Mode PRVC [facility] O2 Device/Flow/% Adult Ventilator [facility] Oxygen saturation in Blood 99 % High 94.0 - 98.0 % [facility] POC pCO2 31.7 Low [facility] POC pH 7.497 High [facility] POC PO2 116.0 High [facility] Positive Base Excess, Art 2 [facility] Sample Site Arterial Line [facility] Basic Metabolic Panel w/ Ref rafael to MGon 08-03-2021 Anion gap [Moles/Vol] 10 mmol/L 9 - 17 mmol/L [facility] Calcium [Mass/Vol] 8.3 mg/dL Low 8.6 - 10. 4 mg/dL [facility] Chloride [Moles/Vol] 107 mmol/L 98 - 10 7 mmol/L [facility] CO2 [Moles/Vol] 22 mmol/L 20 - 31 mmol/L [facility] Creatinine [Mass/Vol] 0.6 mg/dL 0.50 - 0.90 mg/dL [facility] GFR >60 >60 mL/min [facility] GFR Non- >60 >60 mL/min [facility] GFR/1.73 sq M.predicted MDRD (S/P/Bld) [Vol rate/Area] [facility] Glucose [Mass/Vol] 210 mg/dL High 70 - 99 mg/dL [facility] Interpretation and review of laboratory results Abnormal [facility] Potassium [Moles/Vol] 3.6 mmol/L Low 3.7 - 5.3 mmol/L [facility] Sodium [Moles/Vol] 139 mmol/L 135 - 144 mmol/L [facility] Urea nitrogen (BldV) [Mass/Vol] 15 mg/dL 6 - 20 mg/dL [facility] CBC with Auto Differentialon 08-03-2021 Absolute Eos # 0.19 [facility] Absolute Immature Granulocyte 0.11 [facility] Absolute Lymph # 1.74 [facility] Absolute [place] # 0.92 [facility] Basophils (Bld) [#/Vol] 0.03 10*3/uL [facility] Basophils/100 WBC (Bld) 0 % 0 - 2 % B [facility] Eosinophils/100 WBC (Bld) 2 % 1 - 4 % [facility] Hematocrit (Bld) [Volume fraction] 24.8 % Low 36.3 - 47.1 % [facility] Hemoglobin (Bld) [Mass/Vol] 8.3 g/dL Low 11.9 - 15.1 g/dL [facility] Immature granulocytes/100 WBC (Bld) 1 % High 0 [facility] Interpretation and review of laboratory results Abnormal [facility] Lymphocytes/100 WBC (Bld) 15 % Low 24 - 43 % [facility] MCH (RBC) [Entitic mass] 31.6 pg 25.2 - 33.5 pg [facility] MCHC (RBC) [Mass/Vol] 33.5 g/dL 28.4 - 34.8 g/dL [facility] MCV (RBC) [Entitic vol] 94.3 fL 82.6 - 102.9 fL [facility] Monocytes/100 WBC (Bld) 8 % 3 - 12 % B [facility] NRBC Automated 0.0 0.0 per 100 WBC [facility] Platelet distribution width (Bld) [Ratio] 18.5 % High 11.8 - 14.4 % [facility] Platelet mean volume (Bld) [Entitic vol] 8.8 fL 8.1 - 13.5 fL [facility] Platelets (Bld) [#/Vol] 429 10*3/uL [facility] RBC (Bld) [#/Vol] 2.63 10*6/uL Low 3.95 - 5.1 1 m/uL [facility] RBC (Bld) [#/Vol] ANISOCYTOSIS PRESENT [facility] Seg Neutrophils 74 % High 36 - 65 % [facility] Segs Absolute 8.94 High [facility] WBC (Bld) [#/Vol] 11.9 10*3/uL High [facility] [place] No Panel Informationon 08-03 Interpretation and review of laboratory results Abnormal [facility] POC Glucose Fingerstickon Glucose [Mass/Vol] 302 mg/dL High 65 - 105 mg/dL [facility] Interpretation and review of laboratory results Abnormal [facility] Glucose [Mass/Vol] 246 mg/dL High 65 - 105 mg/dL [facility] Interpretation and review of laboratory results Abnormal [facility] Glucose [Mass/Vol] 196 mg/dL High 65 - 105 mg/dL [facility] Interpretation and review of laboratory results Abnormal [facility] Glucose [Mass/Vol] 222 mg/dL High 65 - 105 mg/dL [facility] Interpretation and review of laboratory results Abnormal [facility] Glucose [Mass/Vol] 216 mg/dL High 65 - 105 mg/dL [facility] Interpretation and review of laboratory results Abnormal [facility] POCT Glucoseon 08-03-2021 Glucose [Mass/Vol] 218 mg/dL High 74 - 100 mg/dL [facility] Arterial Blood Gas, POCon Adarsh Test NOT APPLICABLE [facility] FIO2 30.0 [facility] HCO3 (Bld) [Moles/Vol] 24.2 mmol/L 21.0 - 28.0 mmol/L [facility] Mode PRVC [facility] O2 Device/Flow/% Adult Ventilator [facility] Oxygen saturation in Blood 99 % High 94.0 - 98.0 % [facility] POC pCO2 35.7 [facility] POC pH 7.439 [facility] POC PO2 119.9 High [facility] Positive Base Excess, Art 0 [facility] Sample Site Arterial Line [facility] Basic Metabolic Panel w/ Ref rafael to MGon 08-02-2021 Anion gap [Moles/Vol] 9 mmol/L 9 - 17 mmol/L [facility] Calcium [Mass/Vol] 8.0 mg/dL Low 8.6 - 10. 4 mg/dL [facility] Chloride [Moles/Vol] 106 mmol/L 98 - 10 7 mmol/L [facility] CO2 [Moles/Vol] 22 mmol/L 20 - 31 mmol/L [facility] Creatinine [Mass/Vol] 0.67 mg/dL 0.50 - 0.90 mg/dL [facility] GFR >60 >60 mL/min [facility] GFR Non- >60 >60 mL/min [facility] GFR/1.73 sq M.predicted MDRD (S/P/Bld) [Vol rate/Area] [facility] Glucose [Mass/Vol] 247 mg/dL High 70 - 99 mg/dL [facility] Interpretation and review of laboratory results Abnormal [facility] Potassium [Moles/Vol] 3.3 mmol/L Low 3.7 - 5.3 mmol/L [facility] Sodium [Moles/Vol] 137 mmol/L 135 - 144 mmol/L [facility] Urea nitrogen (BldV) [Mass/Vol] 15 mg/dL 6 - 20 mg/dL [facility] CBC with Auto Differentialon 08-02-2021 Absolute Eos # 0.15 [facility] Absolute Immature Granulocyte 0.26 [facility] Absolute Lymph # 1.[facility] Absolute [place] # 0.99 [facility] Basophils (Bld) [#/Vol] 0.04 10*3/uL [facility] Basophils/100 WBC (Bld) 0 % 0 - 2 % B [facility] Eosinophils/100 WBC (Bld) 1 % 1 - 4 % [facility] Hematocrit (Bld) [Volume fraction] 23.5 % Low 36.3 - 47.1 % [facility] Hemoglobin (Bld) [Mass/Vol] 8.0 g/dL Low 11.9 - 15.1 g/dL [facility] Immature granulocytes/100 WBC (Bld) 2 % High 0 [facility] Interpretation and review of laboratory results Abnormal [facility] Lymphocytes/100 WBC (Bld) 16 % Low 24 - 43 % [facility] MCH (RBC) [Entitic mass] 32.0 pg 25.2 - 33.5 pg [facility] MCHC (RBC) [Mass/Vol] 34.0 g/dL 28.4 - 34.8 g/dL [facility] MCV (RBC) [Entitic vol] 94.0 fL 82.6 - 102.9 fL [facility] Monocytes/100 WBC (Bld) 8 % 3 - 12 % B ON [facility] NRBC Automated 0.0 0.0 per 100 WBC [facility] Platelet distribution width (Bld) [Ratio] 18.5 % High 11.8 - 14.4 % [facility] Platelet mean volume (Bld) [Entitic vol] 8.4 fL 8.1 - 13.5 fL [facility] Platelets (Bld) [#/Vol] 398 10*3/uL [facility] RBC (Bld) [#/Vol] 2.50 10*6/uL Low 3.95 - 5.1 1 m/uL [facility] RBC (Bld) [#/Vol] ANISOCYTOSIS PRESENT [facility] Seg Neutrophils 73 % High 36 - 65 % [facility] Segs Absolute 8.88 High [facility] WBC (Bld) [#/Vol] 12.3 10*3/uL High [facility] Magnesiumon 08-02-2021 Magnesium [Mass/Vol] 1.7 mg/dL 1.6 - 2 .6 mg/dL [facility] No Panel Informationon 08-02 Interpretation and review of laboratory results Abnormal [facility] POC Glucose Fingerstickon Glucose [Mass/Vol] 194 mg/dL High 65 - 105 mg/dL [facility] Interpretation and review of laboratory results Abnormal [facility] Glucose [Mass/Vol] 112 mg/dL High 65 - 105 mg/dL [facility] Interpretation and review of laboratory results Abnormal [facility] Glucose [Mass/Vol] 172 mg/dL High 65 - 105 mg/dL [facility] Interpretation and review of laboratory results Abnormal [facility] Glucose [Mass/Vol] 251 mg/dL High 65 - 105 mg/dL [facility] Interpretation and review of laboratory results Abnormal [facility] Glucose [Mass/Vol] 240 mg/dL High 65 - 105 mg/dL [facility] Interpretation and review of laboratory results Abnormal [facility] POCT Glucoseon 08-02-2021 Glucose [Mass/Vol] 286 mg/dL High 74 - 100 mg/dL [facility] Basic Metabolic Panel w/ Ref rafael to MGon 08-01-2021 Anion gap [Moles/Vol] 13 mmol/L 9 - 17 mmol/L [facility] Calcium [Mass/Vol] 7.9 mg/dL Low 8.6 - 10. 4 mg/dL [facility] Chloride [Moles/Vol] 105 mmol/L 98 - 10 7 mmol/L [facility] CO2 [Moles/Vol] 20 mmol/L 20 - 31 mmol/L [facility] Creatinine [Mass/Vol] 0.72 mg/dL 0.50 - 0.90 mg/dL [facility] GFR >60 >60 mL/min [facility] GFR Non- >60 >60 mL/min [facility] GFR/1.73 sq M.predicted MDRD (S/P/Bld) [Vol rate/Area] [facility] Glucose [Mass/Vol] 212 mg/dL High 70 - 99 mg/dL [facility] Interpretation and review of laboratory results Abnormal [facility] Potassium [Moles/Vol] 3.2 mmol/L Low 3.7 - 5.3 mmol/L [facility] Sodium [Moles/Vol] 138 mmol/L 135 - 144 mmol/L [facility] Urea nitrogen (BldV) [Mass/Vol] 15 mg/dL 6 - 20 mg/dL [facility] CBC with Auto Differentialon 08-01-2021 Absolute Eos # 0.14 [facility] Absolute Immature Granulocyte 0.56 High [facility] Absolute Lymph # 2.66 [facility] Absolute [place] # 0.70 [facility] Basophils (Bld) [#/Vol] 0.00 10*3/uL [facility] Basophils/100 WBC (Bld) 0 % 0 - 2 % [facility] ON [facility] Eosinophils/100 WBC (Bld) 1 % 1 - 4 % [facility] Hematocrit (Bld) [Volume fraction] 27.1 % Low 36.3 - 47.1 % [facility] Hemoglobin (Bld) [Mass/Vol] 9.1 g/dL Low 11.9 - 15.1 g/dL [facility] Immature granulocytes/100 WBC (Bld) 4 % High 0 [facility] Interpretation and review of laboratory results Abnormal [facility] Lymphocytes/100 WBC (Bld) 19 % Low 24 - 44 % [facility] MCH (RBC) [Entitic mass] 31.7 pg 25.2 - 33.5 pg [facility] MCHC (RBC) [Mass/Vol] 33.6 g/dL 28.4 - 34.8 g/dL [facility] MCV (RBC) [Entitic vol] 94.4 fL 82.6 - 102.9 fL [facility] Monocytes/100 WBC (Bld) 5 % 1 - 7 % [facility] ON [facility] Morphology Malachi (Bld) [Interp] ANISOCYTOSIS PRESENT [facility] NRBC Automated 0.0 0.0 per 100 WBC [facility] Platelet distribution width (Bld) [Ratio] 18.8 % High 11.8 - 14.4 % [facility] Platelet mean volume (Bld) [Entitic vol] 8.7 fL 8.1 - 13.5 fL [facility] Platelets (Bld) [#/Vol] 490 10*3/uL High [facility] RBC (Bld) [#/Vol] 2.87 10*6/uL Low 3.95 - 5.1 1 m/uL [facility] Seg Neutrophils 71 % High 36 - 66 % [facility] Segs Absolute 9.94 High [facility] WBC (Bld) [#/Vol] 14.0 10*3/uL High [facility] Magnesiumon 08-01-2021 Magnesium [Mass/Vol] 1.7 mg/dL 1.6 - 2 .6 mg/dL [facility] POC Glucose Fingerstickon Glucose [Mass/Vol] 124 mg/dL High 65 - 105 mg/dL [facility] Interpretation and review of laboratory results Abnormal [facility] Glucose [Mass/Vol] 201 mg/dL High 65 - 105 mg/dL [facility] Interpretation and review of laboratory results Abnormal [facility] Glucose [Mass/Vol] 264 mg/dL High 65 - 105 mg/dL [facility] Interpretation and review of laboratory results Abnormal [facility] Glucose [Mass/Vol] 184 mg/dL High 65 - 105 mg/dL [facility] Interpretation and review of laboratory results Abnormal [facility] Glucose [Mass/Vol] 241 mg/dL High 65 - 105 mg/dL [facility] Interpretation and review of laboratory results Abnormal [facility] Triglycerideon 08-01-2021 Interpretation and review of laboratory results Abnormal [facility] Triglyceride [Mass/Vol] 164 mg/dL High <150 [facility] Basic Metabolic Panel w/ Ref rafael to MGon 07-31-2021 Anion gap [Moles/Vol] 14 mmol/L 9 - 17 mmol/L [facility] Calcium [Mass/Vol] 8.0 mg/dL Low 8.6 - 10. 4 mg/dL [facility] Chloride [Moles/Vol] 106 mmol/L 98 - 10 7 mmol/L [facility] CO2 [Moles/Vol] 20 mmol/L 20 - 31 mmol/L [facility] Creatinine [Mass/Vol] 0.78 mg/dL 0.50 - 0.90 mg/dL [facility] [employer] GFR >60 >60 mL/min [facility] GFR Non- >60 >60 mL/min [facility] GFR/1.73 sq M.predicted MDRD (S/P/Bld) [Vol rate/Area] [facility] Glucose [Mass/Vol] 209 mg/dL High 70 - 99 mg/dL [facility] Interpretation and review of laboratory results Abnormal [facility] Potassium [Moles/Vol] 3.3 mmol/L Low 3.7 - 5.3 mmol/L [facility] Sodium [Moles/Vol] 140 mmol/L 135 - 144 mmol/L [facility] Urea nitrogen (BldV) [Mass/Vol] 14 mg/dL 6 - 20 mg/dL [facility] CBC with Auto Differentialon 07-31-2021 Absolute Eos # 0.28 [facility] Absolute Immature Granulocyte 0.98 High [facility] Absolute Lymph # 2.94 [facility] Absolute [place] # 0.98 High [facility] Basophils (Bld) [#/Vol] 0.00 10*3/uL [facility] Basophils/100 WBC (Bld) 0 % 0 - 2 % B [facility] Eosinophils/100 WBC (Bld) 2 % 1 - 4 % [facility] Hematocrit (Bld) [Volume fraction] 27.4 % Low 36.3 - 47.1 % [facility] Hemoglobin (Bld) [Mass/Vol] 9.5 g/dL Low 11.9 - 15.1 g/dL [facility] Immature granulocytes/100 WBC (Bld) 7 % High 0 [facility] Interpretation and review of laboratory results Abnormal [facility] Lymphocytes/100 WBC (Bld) 21 % Low 24 - 44 % [facility] MCH (RBC) [Entitic mass] 31.8 pg 25.2 - 33.5 pg [facility] MCHC (RBC) [Mass/Vol] 34.7 g/dL 28.4 - 34.8 g/dL [facility] MCV (RBC) [Entitic vol] 91.6 fL 82.6 - 102.9 fL [facility] Monocytes/100 WBC (Bld) 7 % 1 - 7 % B ON [facility] Morphology Malachi (Bld) [Interp] ANISOCYTOSIS PRESENT [facility] NRBC Automated 0.0 0.0 per 100 WBC [facility] Platelet distribution width (Bld) [Ratio] 18.4 % High 11.8 - 14.4 % [facility] Platelet mean volume (Bld) [Entitic vol] 8.7 fL 8.1 - 13.5 fL [facility] Platelets (Bld) [#/Vol] 502 10*3/uL High [facility] RBC (Bld) [#/Vol] 2.99 10*6/uL Low 3.95 - 5.1 1 m/uL [facility] Seg Neutrophils 63 % 36 - 66 % [facility] Segs Absolute 8.82 High [facility] WBC (Bld) [#/Vol] 14.0 10*3/uL High [facility] Hemoglobin and Hematocriton 07-31-2021 Hematocrit (Bld) [Volume fraction] 27.4 % Low 36.3 - 47.1 % [facility] Hemoglobin (Bld) [Mass/Vol] 9.2 g/dL Low 11.9 - 15.1 g/dL [facility] Interpretation and review of laboratory results Abnormal [facility] Magnesiumon 07-31-2021 Magnesium [Mass/Vol] 1.6 mg/dL 1.6 - 2 .6 mg/dL [facility] POC Glucose Fingerstickon Glucose [Mass/Vol] 134 mg/dL High 65 - 105 mg/dL [facility] Interpretation and review of laboratory results Abnormal [facility] Glucose [Mass/Vol] 230 mg/dL High 65 - 105 mg/dL [facility] Interpretation and review of laboratory results Abnormal [facility] Glucose [Mass/Vol] 214 mg/dL High 65 - 105 mg/dL [facility] Interpretation and review of laboratory results Abnormal [facility] Glucose [Mass/Vol] 197 mg/dL High 65 - 105 mg/dL [facility] Interpretation and review of laboratory results Abnormal [facility] Glucose [Mass/Vol] 164 mg/dL High 65 - 105 mg/dL [facility] Interpretation and review of laboratory results Abnormal [facility] Arterial Blood Gas, POCon Adarsh Test NOT APPLICABLE [facility] FIO2 30.0 [facility] HCO3 (Bld) [Moles/Vol] 24.4 mmol/L 21.0 - 28.0 mmol/L [facility] Interpretation and review of laboratory results Abnormal [facility] Mode PRVC [facility] O2 Device/Flow/% Adult Ventilator [facility] Oxygen saturation in Blood 98 % 94.0 - 98.0 % [facility] POC pCO2 33.3 Low [facility] POC pH 7.473 High [facility] POC PO2 104.7 [facility] Positive Base Excess, Art 1 [facility] Sample Site Arterial Line [facility] Basic Metabolic Panel w/ Ref rafael to MGon 07-30-2021 Anion gap [Moles/Vol] 10 mmol/L 9 - 17 mmol/L [facility] Calcium [Mass/Vol] 8.0 mg/dL Low 8.6 - 10. 4 mg/dL [facility] Chloride [Moles/Vol] 105 mmol/L 98 - 10 7 mmol/L [facility] CO2 [Moles/Vol] 22 mmol/L 20 - 31 mmol/L [facility] Creatinine [Mass/Vol] 0.7 mg/dL 0.50 - 0.90 mg/dL [facility] GFR >60 >60 mL/min [facility] GFR Non- >60 >60 mL/min [facility] GFR/1.73 sq M.predicted MDRD (S/P/Bld) [Vol rate/Area] [facility] Glucose [Mass/Vol] 276 mg/dL High 70 - 99 mg/dL [facility] Interpretation and review of laboratory results Abnormal [facility] Potassium [Moles/Vol] 3.8 mmol/L 3.7 - 5.3 mmol/L [facility] Sodium [Moles/Vol] 137 mmol/L 135 - 144 mmol/L [facility] Urea nitrogen (BldV) [Mass/Vol] 14 mg/dL 6 - 20 mg/dL [facility] CBC with Auto Differentialon 07-30-2021 Absolute Eos # 0.00 [facility] Absolute Immature Granulocyte 0.71 High [facility] Absolute Lymph # 3.69 [facility] Absolute [place] # 0.57 [facility] RS [facility] Basophils (Bld) [#/Vol] 0.00 10*3/uL [facility] Basophils/100 WBC (Bld) 0 % 0 - 2 % B ON [facility] Eosinophils/100 WBC (Bld) 0 % Low 1 - 4 % [facility] Hematocrit (Bld) [Volume fraction] 27.0 % Low 36.3 - 47.1 % [facility] Hemoglobin (Bld) [Mass/Vol] 9.3 g/dL Low 11.9 - 15.1 g/dL [facility] Immature granulocytes/100 WBC (Bld) 5 % High 0 [facility] Interpretation and review of laboratory results Abnormal [facility] Lymphocytes/100 WBC (Bld) 26 % 24 - 44 % [facility] MCH (RBC) [Entitic mass] 31.5 pg 25.2 - 33.5 pg [facility] MCHC (RBC) [Mass/Vol] 34.4 g/dL 28.4 - 34.8 g/dL [facility] MCV (RBC) [Entitic vol] 91.5 fL 82.6 - 102.9 fL [facility] Monocytes/100 WBC (Bld) 4 % 1 - 7 % B ON [facility] Morphology Malachi (Bld) [Interp] ANISOCYTOSIS PRESENT [facility] NRBC Automated 0.0 0.0 per 100 WBC [facility] Platelet distribution width (Bld) [Ratio] 17.7 % High 11.8 - 14.4 % [facility] Platelet mean volume (Bld) [Entitic vol] 8.8 fL 8.1 - 13.5 fL [facility] Platelets (Bld) [#/Vol] 491 10*3/uL High [facility] RBC (Bld) [#/Vol] 2.95 10*6/uL Low 3.95 - 5.1 1 m/uL [facility] Seg Neutrophils 65 % 36 - 66 % [facility] Segs Absolute 9.23 High [facility] WBC (Bld) [#/Vol] 14.2 10*3/uL High [facility] Hemoglobin and Hematocriton 07-30-2021 Hematocrit (Bld) [Volume fraction] 29.5 % Low 36.3 - 47.1 % [facility] Hemoglobin (Bld) [Mass/Vol] 9.6 g/dL Low 11.9 - 15.1 g/dL [facility] Interpretation and review of laboratory results Abnormal [facility] POC Glucose Fingerstickon Glucose [Mass/Vol] 106 mg/dL High 65 - 105 mg/dL [facility] Interpretation and review of laboratory results Abnormal [facility] Glucose [Mass/Vol] 231 mg/dL High 65 - 105 mg/dL [facility] Interpretation and review of laboratory results Abnormal [facility] TYPE AND SCREENon 07-30-2021 ABO/Rh Positive [facility] Arm Band Number BE [id number] [facility] Blood Bank Blood Product Expiration Date [id number] [facility] Blood Bank ISBT Product Blood Type 6200 [facility] Blood Bank Unit Type and Rh Positive [facility] Blood product type Nom (BPU) Leukocyte Reduced Red Cell [facility] Blood product unit ID (Dose) [#] [id number] [facility] Crossmatch Result COMPATIBLE [facility] Dispense Status TRANSFUSED [facility] Expiration Date 08/01/2021,4087 [facility] Product Code Blood Bank [id number] B ON [facility] Transfusion Status OK TO TRANSFUSE B ON [facility] Unit Divison 0 [facility] Unit Issue Date/Time [id number] [facility] Arterial Blood Gas, POCon Adarsh Test NOT APPLICABLE [facility] FIO2 30.0 [facility] HCO3 (Bld) [Moles/Vol] 23.0 mmol/L 21.0 - 28.0 mmol/L [facility] Interpretation and review of laboratory results Abnormal [facility] Mode PRVC [facility] Negative Base Excess, Art 1 [facility] O2 Device/Flow/% Adult Ventilator [facility] Oxygen saturation in Blood 99 % High 94.0 - 98.0 % [facility] POC pCO2 35.1 [facility] POC pH 7.425 [facility] POC PO2 120.9 High [facility] Sample Site Arterial Line [facility] Basic Metabolic Panel w/ Ref rafael to MGon 07-29-2021 Anion gap [Moles/Vol] 9 mmol/L 9 - 17 mmol/L [facility] Calcium [Mass/Vol] 7.8 mg/dL Low 8.6 - 10. 4 mg/dL [facility] Chloride [Moles/Vol] 106 mmol/L 98 - 10 7 mmol/L [facility] CO2 [Moles/Vol] 21 mmol/L 20 - 31 mmol/L [facility] Creatinine [Mass/Vol] 0.71 mg/dL 0.50 - 0.90 mg/dL [facility] GFR >60 >60 mL/min [facility] GFR Non- >60 >60 mL/min [facility] GFR/1.73 sq M.predicted MDRD (S/P/Bld) [Vol rate/Area] [facility] Glucose [Mass/Vol] 246 mg/dL High 70 - 99 mg/dL [facility] Interpretation and review of laboratory results Abnormal [facility] Potassium [Moles/Vol] 3.6 mmol/L Low 3.7 - 5.3 mmol/L [facility] Sodium [Moles/Vol] 136 mmol/L 135 - 144 mmol/L [facility] Urea nitrogen (BldV) [Mass/Vol] 11 mg/dL 6 - 20 mg/dL [facility] CBC with Auto Differentialon 07-29-2021 Absolute Eos # 0.00 [facility] Absolute Immature Granulocyte 0.43 High [facility] Absolute Lymph # 3.13 [facility] [facility] Absolute [place] # 0.32 [facility] RS [facility] Basophils (Bld) [#/Vol] 0.00 10*3/uL [facility] Basophils/100 WBC (Bld) 0 % 0 - 2 % B ON [facility] Eosinophils/100 WBC (Bld) 0 % Low 1 - 4 % [facility] Hematocrit (Bld) [Volume fraction] 22.5 % Low 36.3 - 47.1 % [facility] Hemoglobin (Bld) [Mass/Vol] 7.4 g/dL Low 11.9 - 15.1 g/dL [facility] Immature granulocytes/100 WBC (Bld) 4 % High 0 [facility] Interpretation and review of laboratory results Abnormal [facility] Lymphocytes/100 WBC (Bld) 29 % 24 - 44 % [facility] MCH (RBC) [Entitic mass] 30.7 pg 25.2 - 33.5 pg [facility] MCHC (RBC) [Mass/Vol] 32.9 g/dL 28.4 - 34.8 g/dL [facility] MCV (RBC) [Entitic vol] 93.4 fL 82.6 - 102.9 fL [facility] Monocytes/100 WBC (Bld) 3 % 1 - 7 % B ON [facility] Morphology Malachi (Bld) [Interp] ANISOCYTOSIS PRESENT [facility] NRBC Automated 0.0 0.0 per 100 WBC [facility] Platelet distribution width (Bld) [Ratio] 19.6 % High 11.8 - 14.4 % [facility] Platelet mean volume (Bld) [Entitic vol] 8.9 fL 8.1 - 13.5 fL [facility] Platelets (Bld) [#/Vol] 500 10*3/uL High [facility] RBC (Bld) [#/Vol] 2.41 10*6/uL Low 3.95 - 5.1 1 m/uL [facility] Seg Neutrophils 64 % 36 - 66 % [facility] Segs Absolute 6.92 [facility] WBC (Bld) [#/Vol] 10.8 10*3/uL [facility] Hemoglobin and Hematocriton 07-29-2021 Hematocrit (Bld) [Volume fraction] 29.9 % Low 36.3 - 47.1 % [facility] Hemoglobin (Bld) [Mass/Vol] 10.1 g/dL Low 11.9 - 15.1 g/dL [facility] Interpretation and review of laboratory results Abnormal [facility] Hematocrit (Bld) [Volume fraction] 24.9 % Low 36.3 - 47.1 % [facility] Hemoglobin (Bld) [Mass/Vol] 8.4 g/dL Low 11.9 - 15.1 g/dL [facility] Interpretation and review of laboratory results Abnormal [facility] POC Glucose Fingerstickon Glucose [Mass/Vol] 169 mg/dL High 65 - 105 mg/dL [facility] Interpretation and review of laboratory results Abnormal [facility] Glucose [Mass/Vol] 296 mg/dL High 65 - 105 mg/dL [facility] Interpretation and review of laboratory results Abnormal [facility] Glucose [Mass/Vol] 276 mg/dL High 65 - 105 mg/dL [facility] Interpretation and review of laboratory results Abnormal [facility] Glucose [Mass/Vol] 217 mg/dL High 65 - 105 mg/dL [facility] Interpretation and review of laboratory results Abnormal [facility] Arterial Blood Gas, POCon FIO2 30.0 [facility] HCO3 (Bld) [Moles/Vol] 22.0 mmol/L 21.0 - 28.0 mmol/L [facility] Mode PRVC [facility] Negative Base Excess, Art 2 [facility] O2 Device/Flow/% Adult Ventilator DAKOTAH N [facility] Oxygen saturation in Blood 98 % 94.0 - 98.0 % [facility] POC pCO2 30.9 Low [facility] POC pH 7.460 High [facility] POC PO2 101.0 [facility] Sample Site Arterial Line [facility] Basic Metabolic Panel w/ Ref rafael to MGon 07-28-2021 Anion gap [Moles/Vol] 9 mmol/L 9 - 17 mmol/L [facility] Calcium [Mass/Vol] 8.1 mg/dL Low 8.6 - 10. 4 mg/dL [facility] Chloride [Moles/Vol] 108 mmol/L High 98 - 10 7 mmol/L [facility] CO2 [Moles/Vol] 20 mmol/L 20 - 31 mmol/L [facility] Creatinine [Mass/Vol] 0.73 mg/dL 0.50 - 0.90 mg/dL [facility] GFR >60 >60 mL/min [facility] GFR Non- >60 >60 mL/min [facility] GFR/1.73 sq M.predicted MDRD (S/P/Bld) [Vol rate/Area] [facility] Glucose [Mass/Vol] 195 mg/dL High 70 - 99 mg/dL [facility] Interpretation and review of laboratory results Abnormal [facility] Potassium [Moles/Vol] 4.2 mmol/L 3.7 - 5.3 mmol/L [facility] Sodium [Moles/Vol] 137 mmol/L 135 - 144 mmol/L [facility] Urea nitrogen (BldV) [Mass/Vol] 8 mg/dL 6 - 20 mg/dL [facility] CBC with Auto Differentialon 07-28-2021 Absolute Eos # 0.00 [facility] SECOUR S [facility] Absolute Immature Granulocyte 0.64 High BON [facility] Absolute Lymph # 2.69 [place] SEC[facility] URS [facility] [place] # 0.00 Low [facility] Basophils (Bld) [#/Vol] 0.00 10*3/uL [facility] Basophils/100 WBC (Bld) 0 % 0 - 2 % [facility] Eosinophils/100 WBC (Bld) 0 % Low 1 - 4 % [facility] Hematocrit (Bld) [Volume fraction] 24.4 % Low 36.3 - 47.1 % [facility] Hemoglobin (Bld) [Mass/Vol] 7.9 g/dL Low 11.9 - 15.1 g/dL [facility] Immature granulocytes/100 WBC (Bld) 5 % High 0 [facility] Interpretation and review of laboratory results Abnormal [facility] Lymphocytes/100 WBC (Bld) 21 % Low 24 - 44 % [facility] MCH (RBC) [Entitic mass] 30.5 pg 25.2 - 33.5 pg [facility] MCHC (RBC) [Mass/Vol] 32.4 g/dL 28.4 - 34.8 g/dL [facility] MCV (RBC) [Entitic vol] 94.2 fL 82.6 - 102.9 fL [facility] Monocytes/100 WBC (Bld) 0 % Low 1 - 7 % B ON [facility] Morphology Malachi (Bld) [Interp] ANISOCYTOSIS PRESENT [facility] NRBC Automated 0.0 0.0 per 100 WBC [facility] Platelet distribution width (Bld) [Ratio] 19.0 % High 11.8 - 14.4 % [facility] Platelet mean volume (Bld) [Entitic vol] 8.8 fL 8.1 - 13.5 fL [facility] Platelets (Bld) [#/Vol] 490 10*3/uL High [facility] RBC (Bld) [#/Vol] 2.59 10*6/uL Low 3.95 - 5.1 1 m/uL [facility] Seg Neutrophils 74 % High 36 - 66 % [facility] Segs Absolute 9.47 High [facility] WBC (Bld) [#/Vol] 12.8 10*3/uL High [facility] Jossie [facility] Calcium, Ionizedon Calcium [Moles/Vol] 1.15 mmol/L 1.13 - 1 .33 mmol/L [facility] Hemoglobin and Hematocriton 07-28-2021 Hematocrit (Bld) [Volume fraction] 23.9 % Low 36.3 - 47.1 % [facility] Hemoglobin (Bld) [Mass/Vol] 8.2 g/dL Low 11.9 - 15.1 g/dL [facility] Interpretation and review of laboratory results Abnormal [facility] No Panel Informationon 07-28 Interpretation and review of laboratory results Abnormal [facility] POC Glucose Fingerstickon Glucose [Mass/Vol] 183 mg/dL High 65 - 105 mg/dL [facility] Interpretation and review of laboratory results Abnormal [facility] Glucose [Mass/Vol] 187 mg/dL High 65 - 105 mg/dL [facility] Interpretation and review of laboratory results Abnormal [facility] Glucose [Mass/Vol] 163 mg/dL High 65 - 105 mg/dL [facility] Interpretation and review of laboratory results Abnormal [facility] Glucose [Mass/Vol] 182 mg/dL High 65 - 105 mg/dL [facility] Interpretation and review of laboratory results Abnormal [facility] POCT Glucoseon 07-28-2021 Glucose [Mass/Vol] 177 mg/dL High 74 - 100 mg/dL [facility] CBC with Auto Differentialon 07-27-2021 Basophils (Bld) [#/Vol] 0.00 10*3/uL [facility] Basophils/100 WBC (Bld) 0 % 0 - 2 % B [facility] Eosinophils/100 WBC (Bld) 0 % Low 1 - 4 % [facility] Hematocrit (Bld) [Volume fraction] 25.3 % Low 36.3 - 47.1 % [facility] Hemoglobin (Bld) [Mass/Vol] 8.5 g/dL Low 11.9 - 15.1 g/dL [facility] Lymphocytes/100 WBC (Bld) 19 % Low 24 - 44 % [facility] MCH (RBC) [Entitic mass] 30.6 pg 25.2 - 33.5 pg [facility] MCV (RBC) [Entitic vol] 91.0 fL 82.6 - 102.9 fL [facility] Morphology Malachi (Bld) [Interp] ANISOCYTOSIS PRESENT [facility] RBC (Bld) [#/Vol] 2.78 10*6/uL Low 3.95 - 5.1 1 m/uL [facility] Calcium, Ionizedon 2 Calcium [Moles/Vol] 1.19 mmol/L 1.13 - 1 .33 mmol/L [facility] Culture, Blood 2on 2 Bacteria identified Cx Nom (Unsp spec) NO GROWTH 5 DAYS [facility] Special Requests L HAND 20ML [facility] Specimen Description .BLOOD [facility] Hemoglobin and Hematocriton 07-27-2021 Hematocrit (Bld) [Volume fraction] 26.4 % Low 36.3 - 47.1 % [facility] Hemoglobin (Bld) [Mass/Vol] 9.0 g/dL Low 11.9 - 15.1 g/dL [facility] Interpretation and review of laboratory results Abnormal [facility] Magnesiumon 07-27-2021 Magnesium [Mass/Vol] 1.8 mg/dL 1.6 - 2 .6 mg/dL [facility] POC Glucose Fingerstickon Glucose [Mass/Vol] 149 mg/dL High 65 - 105 mg/dL [facility] Interpretation and review of laboratory results Abnormal [facility] Glucose [Mass/Vol] 162 mg/dL High 65 - 105 mg/dL [facility] Interpretation and review of laboratory results Abnormal [facility] Glucose [Mass/Vol] 160 mg/dL High 65 - 105 mg/dL [facility] Interpretation and review of laboratory results Abnormal [facility] Glucose [Mass/Vol] 147 mg/dL High 65 - 105 mg/dL [facility] Interpretation and review of laboratory results Abnormal [facility] Glucose [Mass/Vol] 135 mg/dL High 65 - 105 mg/dL [facility] Interpretation and review of laboratory results Abnormal [facility] Glucose [Mass/Vol] 204 mg/dL High 65 - 105 mg/dL [facility] Interpretation and review of laboratory results Abnormal [facility] Basic Metabolic Panel w/ Ref rafael to MGon 07-14-2021 Anion gap [Moles/Vol] 14 mmol/L 9 - 17 mmol/L [facility] Calcium [Mass/Vol] 8.2 mg/dL Low 8.6 - 10. 4 mg/dL [facility] Chloride [Moles/Vol] 97 mmol/L Low 98 - 10 7 mmol/L [facility] CO2 [Moles/Vol] 30 mmol/L 20 - 31 mmol/L [facility] Creatinine [Mass/Vol] 0.92 mg/dL High 0.50 - 0.90 mg/dL [facility] GFR >60 >60 mL/min [facility] GFR Non- >60 >60 mL/min [facility] GFR/1.73 sq M.predicted MDRD (S/P/Bld) [Vol rate/Area] [facility] Comment on above: Average GFR for 50-5 9 years old: 93 mL/min/1.73sq m Chronic Kidney Disease: <60 mL/min/1.73sq m Kidney failure: <15 mL/min/1.73sq m eGFR calculated using average adult body mass. Additional eGFR calculator available at: http://www.Mophie.com/multiple_crcl_2012.htm Glucose [Mass/Vol] 96 mg/dL 70 - 99 mg/dL [facility] Interpretation and review of laboratory results Abnormal [facility] Potassium [Moles/Vol] 2.0 mmol/L Critically low 3.7 - 5.3 mmol/L [facility] Sodium [Moles/Vol] 141 mmol/L 135 - 144 mmol/L [facility] Urea nitrogen (BldV) [Mass/Vol] 5 mg/dL Low 6 - 20 mg/dL [facility] Urea nitrogen/Creatinine (Bld) [Mass ratio] 5 Low [facility] CBC with Auto Differentialon 07-14-2021 Absolute Eos # 0.00 [facility] S [facility] [place] # 0.80 [facility] Basophils (Bld) [#/Vol] 0.00 10*3/uL [facility] Basophils/100 WBC (Bld) 0 % 0 - 2 % B ON [facility] Eosinophils/100 WBC (Bld) 0 % 0 - 5 % [facility] Hematocrit (Bld) [Volume fraction] 29.9 % Low 36 - 46 % [facility] Hemoglobin.gastrointest inal spec 1 Ql (Stl) 10.1 g/dL Low 12.0 - 16.0 g/dL [facility] Interpretation and review of laboratory results Abnormal [facility] Lymphocytes/100 WBC (Bld) 22 % 15 - 40 % [facility] MCH (RBC) [Entitic mass] 28.4 pg 26 - 34 pg [facility] MCHC (RBC) [Mass/Vol] 33.8 g/dL 31 - 3 7 g/dL [facility] MCV (RBC) [Entitic vol] 83.9 fL 80 - 100 fL [facility] Monocytes/100 WBC (Bld) 10 % High 4 - 8 % B ON [facility] Morphology Malachi (Bld) [Interp] MODERATE ANISOCYTOSIS [facility] Platelet distribution width (Bld) [Ratio] 19.9 % High 12.1 - 15.2 % [facility] Platelets (Bld) [#/Vol] 701 10*3/uL High [facility] RBC (Bld) [#/Vol] 3.56 10*6/uL Low 4.0 - 5.2 m/uL [facility] Segmented neutrophils/100 WBC (Bld) 68 % 47 - 75 % [facility] Segs Absolute 5.60 [facility] WBC (Bld) [#/Vol] 8.2 10*3/uL [facility] [place] Magnesiumon 07-14-2021 Magnesium [Mass/Vol] 1.6 mg/dL 1.6 - 2 .6 mg/dL [facility] CBC with Auto Differentialon 07-13-2021 Absolute Eos # 0.10 [facility] Absolute Lymph # 1.60 [place] [facility] Absolute [place] # 1.10 High [facility] Basophils (Bld) [#/Vol] 0.00 10*3/uL [facility] Basophils/100 WBC (Bld) 0 % 0 - 2 % B ON [facility] Eosinophils/100 WBC (Bld) 1 % 0 - 5 % [facility] Hematocrit (Bld) [Volume fraction] 31.2 % Low 36 - 46 % [facility] Hemoglobin.gastrointest inal spec 1 Ql (Stl) 10.4 g/dL Low 12.0 - 16.0 g/dL [facility] Interpretation and review of laboratory results Abnormal [facility] Lymphocytes/100 WBC (Bld) 20 % 15 - 40 % [facility] MCH (RBC) [Entitic mass] 28.1 pg 26 - 34 pg [facility] MCHC (RBC) [Mass/Vol] 33.2 g/dL 31 - 3 7 g/dL [facility] MCV (RBC) [Entitic vol] 84.7 fL 80 - 100 fL [facility] Monocytes/100 WBC (Bld) 13 % High 4 - 8 % B ON [facility] Morphology Malachi (Bld) [Interp] MODERATE ANISOCYTOSIS [facility] Morphology Malachi (Bld) [Interp] Scanned to verify automated differential. [facility] Platelet distribution width (Bld) [Ratio] 20.5 % High 12.1 - 15.2 % [facility] Platelets (Bld) [#/Vol] 725 10*3/uL High [facility] RBC (Bld) [#/Vol] 3.68 10*6/uL Low 4.0 - 5.2 m/uL [facility] Segmented neutrophils/100 WBC (Bld) 66 % 47 - 75 % [facility] Segs Absolute 5.30 [facility] WBC (Bld) [#/Vol] 8.1 10*3/uL [facility] COVID-19, Rapidon 07-13-2021 Interpretation and review of laboratory results Abnormal [facility] SARS-CoV-2 (COVID-19) RNA CAL+probe Ql (Unsp spec) Detected Abnormal Not Detected [facility] Comment on above: Rapid NAAT: The [...] this assay. Fact sheet for Healthcare Providers: https://www.fda.gov/media/745553/download Fact sheet for Patients: https://www.fda.gov/media/150368/download Methodology: Isothermal Nucleic Acid Amplification Results reported to the appropriate Health Department Specimen Description .NASOPHARYNGEAL SWAB [facility] Comprehensive Metabolic Pane l w/ Reflex to MGon 07-13-2021 Albumin [Mass/Vol] 2.5 g/dL Low 3.5 - 5.2 g/dL [facility] ALP (Bld) [Catalytic activity/Vol] 450 U/L High 35 - 104 U/L [facility] ALT [Catalytic activity/Vol] 13 U/L 5 - 33 U/L [facility] Anion gap [Moles/Vol] 16 mmol/L 9 - 17 mmol/L [facility] AST [Catalytic activity/Vol] 29 U/L <32 [facility] Bilirubin [Mass/Vol] 0.64 mg/dL 0.30 - 1.20 mg/dL [facility] Calcium [Mass/Vol] 8.7 mg/dL 8.6 - 10. 4 mg/dL [facility] Chloride [Moles/Vol] 102 mmol/L 98 - 10 7 mmol/L [facility] CO2 [Moles/Vol] 25 mmol/L 20 - 31 mmol/L [facility] Creatinine [Mass/Vol] 0.85 mg/dL 0.50 - 0.90 mg/dL [facility] Free PSA/Total PSA [Mass fraction] 6.5 g/dL 6.4 - 8.3 g/dL [facility] GFR >60 >60 mL/min [facility] GFR Non- >60 >60 mL/min [facility] GFR/1.73 sq M.predicted MDRD (S/P/Bld) [Vol rate/Area] [facility] Comment on above: Average GFR for 50-5 9 years old: 93 mL/min/1.73sq m Chronic Kidney Disease: <60 mL/min/1.73sq m Kidney failure: <15 mL/min/1.73sq m eGFR calculated using average adult body mass. Additional eGFR calculator available at: http://www.Mophie.Eqlim/multiple_crcl_2012.htm Glucose [Mass/Vol] 79 mg/dL 70 - 99 mg/dL [facility] Interpretation and review of laboratory results Abnormal [facility] Potassium [Moles/Vol] 2.2 mmol/L Critically low 3.7 - 5.3 mmol/L [facility] Sodium [Moles/Vol] 143 mmol/L 135 - 144 mmol/L [facility] Urea nitrogen (BldV) [Mass/Vol] 7 mg/dL 6 - 20 mg/dL [facility] Urea nitrogen/Creatinine (Bld) [Mass ratio] 8 Low [facility] Lactate Dehydrogenaseon 06-18 Interpretation and review of laboratory results Abnormal [facility] LD 317 U/L High 135 - 214 U/L [facility] Lactic Acidon 07-13-2021 Lactate [Moles/Vol] 1 mmol/L 0.5 - 2. 2 mmol/L [facility] Magnesiumon 07-13-2021 Interpretation and review of laboratory results Abnormal [facility] Magnesium [Mass/Vol] 1.5 mg/dL Low 1.6 - 2 .6 mg/dL [facility] XR CHEST PORTABLEon 07-14-19 22 Left infrahilar patchy airspace disease consistent with a left lower lobe pneumonia. Recommend follow-up imaging 4 weeks post treatment to document resolution. PN RIS CONSOLIDATED EXAM: XR CHEST PORTABLE HISTORY: [...] noted within the left humeral head. [facility] RIS CONSOLIDATED Lionel Mas MD - 07/13/2021 [...] to document resolution. [facility] Work Phone: Radiology Study observation (narrative) [facility] Work Phone: XR CHEST PORTABLEOrdered By: Lionel Mas on 07-13-2021 [facility] Work Phone: Basic Metabolic Panel w/ Ref rafael to MGon 07-10-2021 Anion gap [Moles/Vol] 14 mmol/L 9 - 17 mmol/L [facility] Calcium [Mass/Vol] 7.4 mg/dL Low 8.6 - 10. 4 mg/dL [facility] Chloride [Moles/Vol] 110 mmol/L High 98 - 10 7 mmol/L [facility] CO2 [Moles/Vol] 16 mmol/L Low 20 - 31 mmol/L [facility] Creatinine [Mass/Vol] 1.01 mg/dL High 0.50 - 0.90 mg/dL [facility] GFR >60 >60 mL/min [facility] GFR Non- 56 mL/min Low >60 [facility] GFR/1.73 sq M.predicted MDRD (S/P/Bld) [Vol rate/Area] [facility] Glucose [Mass/Vol] 65 mg/dL Low 70 - 99 mg/dL [facility] Potassium [Moles/Vol] 3.3 mmol/L Low 3.7 - 5.3 mmol/L [facility] Sodium [Moles/Vol] 140 mmol/L 135 - 144 mmol/L [facility] Urea nitrogen (BldV) [Mass/Vol] 7 mg/dL 6 - 20 mg/dL [facility] C-Reactive Proteinon 022 CRP [Mass/Vol] 161.7 mg/L High 0.0 - 5.0 mg/L [facility] CBC with Auto Differentialon 07-10-2021 [facility] Absolute Immature Granulocyte 0.00 [facility] Absolute Lymph # 3.40 [facility] Absolute [place] # 0.72 [facility] RS [facility] Basophils (Bld) [#/Vol] 0.00 10*3/uL [facility] Basophils/100 WBC (Bld) 0 % 0 - 2 % B ON [facility] Eosinophils/100 WBC (Bld) 1 % 1 - 4 % [facility] Hematocrit (Bld) [Volume fraction] 25.6 % Low 36.3 - 47.1 % [facility] Hemoglobin.gastrointest inal spec 1 Ql (Stl) 8.3 g/dL Low 11.9 - 15.1 g/dL [facility] Immature granulocytes/100 WBC (Bld) 0 % 0 [facility] Interpretation and review of laboratory results Abnormal [facility] Lymphocytes/100 WBC (Bld) 19 % Low 24 - 44 % [facility] MCH (RBC) [Entitic mass] 27.8 pg 25.2 - 33.5 pg [facility] MCHC (RBC) [Mass/Vol] 32.4 g/dL 28.4 - 34.8 g/dL [facility] MCV (RBC) [Entitic vol] 85.6 fL 82.6 - 102.9 fL [facility] Monocytes/100 WBC (Bld) 4 % 1 - 7 % B ON [facility] Morphology Malachi (Bld) [Interp] ANISOCYTOSIS PRESENT [facility] NRBC Automated 0.0 0.0 per 100 WBC [facility] Platelet distribution width (Bld) [Ratio] 20.4 % High 11.8 - 14.4 % [facility] Platelet mean volume (Bld) [Entitic vol] 9.0 fL 8.1 - 13.5 fL [facility] Platelets (Bld) [#/Vol] 530 10*3/uL High [facility] RBC (Bld) [#/Vol] 2.99 10*6/uL Low 3.95 - 5.1 1 m/uL [facility] Seg Neutrophils 76 % High 36 - 66 % [facility] Segs Absolute 13.60 High [facility] WBC (Bld) [#/Vol] 17.9 10*3/uL High [facility] [place] COVID-19, Rapidon 07-10-2021 SARS-CoV-2 (COVID-19) RNA CAL+probe Ql (Unsp spec) Not detected Not Detected [employer] Specimen Description .NASOPHARYNGEAL SWAB [facility] CERVICAL SPINE WO CONTRAS Ton 07-10-2021 [facility] RIS CONSOLIDATED PN RIS CONSOL[facility]ATED [facility] Work Phone: Radiology Study observation (narrative) ARASELI HATFIELD [employer] Work Phone: CT CERVICAL SPINE WO CONTRAS TOrdered By: Earl Kohler on 07-10-2021 [employer] Work Phone: Insert PICC lineon 2 [employer] Work Phone: Magnesiumon 07-10-2021 Magnesium [Mass/Vol] 1.8 mg/dL 1.6 - 2 .6 mg/dL [facility] No Panel Informationon 07-10 Interpretation and review of laboratory results Abnormal [facility] POC Glucose Fingerstickon Glucose [Mass/Vol] 137 mg/dL High 65 - 105 mg/dL [facility] Interpretation and review of laboratory results Abnormal [facility] Glucose [Mass/Vol] 77 mg/dL 65 - 105 mg/dL [facility] [employer] XR CERVICAL SPINE FLEXION AN D EXTENSIONon 07-10-2021 [facility] RIS CONSOLIDATED PN RIS CONSOLIDATED [facility] Work Phone: [employer] Work Phone: Radiology Study observation (narrative) ARASELI [employer] Work Phone: Basic Metabolic Panel w/ Ref rafael to MGon 07-09-2021 Anion gap [Moles/Vol] 11 mmol/L 9 - 17 mmol/L [employer] [facility] Calcium [Mass/Vol] 7.7 mg/dL Low 8.6 - 10. 4 mg/dL [employer] [facility] Chloride [Moles/Vol] 109 mmol/L High 98 - 10 7 mmol/L [employer] [facility] CO2 [Moles/Vol] 20 mmol/L 20 - 31 mmol/L [facility] Creatinine [Mass/Vol] 0.81 mg/dL 0.50 - 0.90 mg/dL [facility] GFR >60 >60 mL/min [facility] GFR Non- >60 >60 mL/min [facility] GFR/1.73 sq M.predicted MDRD (S/P/Bld) [Vol rate/Area] [facility] Glucose [Mass/Vol] 133 mg/dL High 70 - 99 mg/dL [facility] Potassium [Moles/Vol] 3.9 mmol/L 3.7 - 5.3 mmol/L [facility] Sodium [Moles/Vol] 140 mmol/L 135 - 144 mmol/L [facility] Urea nitrogen (BldV) [Mass/Vol] 7 mg/dL 6 - 20 mg/dL [facility] C-Reactive Proteinon 022 CRP [Mass/Vol] 124.1 mg/L High 0.0 - 5.0 mg/L [facility] CBC with Auto Differentialon 07-09-2021 Absolute Eos # 0.40 HENSEL S [facility] Absolute Immature Granulocyte 0.08 [facility] Absolute Lymph # 2.06 [facility] Absolute [place] # 0.48 [facility] Basophils (Bld) [#/Vol] 10*3/uL B ON [facility] Basophils/100 WBC (Bld) 0 % 0 - 2 % B ON [facility] Eosinophils/100 WBC (Bld) 4 % 1 - 4 % [facility] Hematocrit (Bld) [Volume fraction] 27.9 % Low 36.3 - 47.1 % [facility] Hemoglobin.gastrointest inal spec 1 Ql (Stl) 8.5 g/dL Low 11.9 - 15.1 g/dL [facility] Immature granulocytes/100 WBC (Bld) 1 % High 0 [facility] Interpretation and review of laboratory results Abnormal [facility] Lymphocytes/100 WBC (Bld) 18 % Low 24 - 43 % [facility] MCH (RBC) [Entitic mass] 27.3 pg 25.2 - 33.5 pg [facility] MCHC (RBC) [Mass/Vol] 30.5 g/dL 28.4 - 34.8 g/dL [facility] MCV (RBC) [Entitic vol] 89.7 fL 82.6 - 102.9 fL [facility] Monocytes/100 WBC (Bld) 4 % 3 - 12 % B ON [facility] NRBC Automated 0.0 0.0 per 100 WBC [facility] Platelet distribution width (Bld) [Ratio] 19.9 % High 11.8 - 14.4 % [facility] Platelet mean volume (Bld) [Entitic vol] 8.9 fL 8.1 - 13.5 fL [facility] Platelets (Bld) [#/Vol] 434 10*3/uL [facility] RBC (Bld) [#/Vol] 3.11 10*6/uL Low 3.95 - 5.1 1 m/uL [facility] RBC (Bld) [#/Vol] ANISOCYTOSIS PRESENT [facility] Seg Neutrophils 73 % High 36 - 65 % [facility] Segs Absolute 8.48 High [facility] WBC (Bld) [#/Vol] 11.5 10*3/uL High [facility] COVID-19, Rapidon 07-09-2021 SARS-CoV-2 (COVID-19) RNA CAL+probe Ql (Unsp spec) Not detected Not Detected [facility] Specimen Description .NASOPHARYNGEAL SWAB [facility] No Panel Informationon 07-09 Interpretation and review of laboratory results Abnormal [facility] POC Glucose Fingerstickon Glucose [Mass/Vol] 101 mg/dL 65 - 105 mg/dL [facility] Glucose [Mass/Vol] 146 mg/dL High 65 - 105 mg/dL [facility] Interpretation and review of laboratory results Abnormal [facility] Glucose [Mass/Vol] 99 mg/dL 65 - 105 mg/dL [facility] Glucose [Mass/Vol] 138 mg/dL High 65 - 105 mg/dL [facility] Interpretation and review of laboratory results Abnormal [facility] Glucose [Mass/Vol] 171 mg/dL High 65 - 105 mg/dL [facility] Interpretation and review of laboratory results Abnormal [facility] Glucose [Mass/Vol] 279 mg/dL High 65 - 105 mg/dL [facility] Interpretation and review of laboratory results Abnormal [facility] Glucose [Mass/Vol] 59 mg/dL Low 65 - 105 mg/dL [facility] Interpretation and review of laboratory results Abnormal [facility] Glucose [Mass/Vol] 59 mg/dL Low 65 - 105 mg/dL [facility] Interpretation and review of laboratory results Abnormal [facility] Glucose [Mass/Vol] 58 mg/dL Low 65 - 105 mg/dL [facility] Interpretation and review of laboratory results Abnormal [facility] Glucose [Mass/Vol] 306 mg/dL High 65 - 105 mg/dL [facility] Interpretation and review of laboratory results Abnormal [facility] Basic Metabolic Panel w/ Ref rafael to MGon 07-08-2021 Anion gap [Moles/Vol] 10 mmol/L 9 - 17 mmol/L [facility] Calcium [Mass/Vol] 7.3 mg/dL Low 8.6 - 10. 4 mg/dL [facility] Chloride [Moles/Vol] 108 mmol/L High 98 - 10 7 mmol/L [facility] CO2 [Moles/Vol] 20 mmol/L 20 - 31 mmol/L [facility] Creatinine [Mass/Vol] 0.83 mg/dL 0.50 - 0.90 mg/dL [facility] GFR >60 >60 mL/min [facility] GFR Non- >60 >60 mL/min [facility] [employer] [facility] GFR/1.73 sq M.predicted MDRD (S/P/Bld) [Vol rate/Area] [facility] Glucose [Mass/Vol] 141 mg/dL High 70 - 99 mg/dL [facility] Interpretation and review of laboratory results Abnormal [facility] Potassium [Moles/Vol] 2.9 mmol/L Critically low 3.7 - 5.3 mmol/L [facility] Sodium [Moles/Vol] 138 mmol/L 135 - 144 mmol/L [facility] Urea nitrogen (BldV) [Mass/Vol] 7 mg/dL 6 - 20 mg/dL [facility] C-Reactive Proteinon 022 CRP [Mass/Vol] 131.5 mg/L High 0.0 - 5.0 mg/L [facility] Interpretation and review of laboratory results Abnormal [facility] CBC with Auto Differentialon 07-08-2021 Absolute Eos # 0.31 [facility] Absolute Immature Granulocyte 0.05 [facility] Absolute Lymph # 1.87 [facility] Absolute [place] # 0.37 [facility] Basophils (Bld) [#/Vol] 10*3/uL B ON [facility] Basophils/100 WBC (Bld) 0 % 0 - 2 % B ON [facility] Eosinophils/100 WBC (Bld) 3 % 1 - 4 % [facility] Hematocrit (Bld) [Volume fraction] 21.5 % Low 36.3 - 47.1 % [facility] Hemoglobin.gastrointest inal spec 1 Ql (Stl) 6.9 g/dL Critically low 11.9 - 15.1 g/dL [facility] Immature granulocytes/100 WBC (Bld) 0 % 0 [facility] Interpretation and review of laboratory results Abnormal [facility] Lymphocytes/100 WBC (Bld) 17 % Low 24 - 43 % [facility] MCH (RBC) [Entitic mass] 27.5 pg 25.2 - 33.5 pg [facility] MCHC (RBC) [Mass/Vol] 32.1 g/dL 28.4 - 34.8 g/dL [facility] MCV (RBC) [Entitic vol] 85.7 fL 82.6 - 102.9 fL [facility] Monocytes/100 WBC (Bld) 3 % 3 - 12 % B ON [facility] NRBC Automated 0.0 0.0 per 100 WBC [facility] Platelet distribution width (Bld) [Ratio] 18.6 % High 11.8 - 14.4 % [facility] Platelet mean volume (Bld) [Entitic vol] 8.9 fL 8.1 - 13.5 fL [facility] Platelets (Bld) [#/Vol] 328 10*3/uL [facility] RBC (Bld) [#/Vol] 2.51 10*6/uL Low 3.95 - 5.1 1 m/uL [facility] RBC (Bld) [#/Vol] ANISOCYTOSIS PRESENT [facility] Seg Neutrophils 77 % High 36 - 65 % [facility] Segs Absolute 8.74 High [facility] WBC (Bld) [#/Vol] 11.4 10*3/uL High [facility] [place] Culture, Urineon 07-08-2021 Bacteria identified Cx Nom (U) NO GROWTH [facility] Specimen Description .INDWELLING CATH URINE [facility] Bacteria identified Cx Nom (U) NO GROWTH [facility] Specimen Description .INDWELLING CATH URINE [facility] Hemoglobin and Hematocriton 07-08-2021 Hematocrit (Bld) [Volume fraction] 25.5 % Low 36.3 - 47.1 % [facility] Hemoglobin.gastrointest inal spec 1 Ql (Stl) 8.1 g/dL Low 11.9 - 15.1 g/dL [facility] Interpretation and review of laboratory results Abnormal [facility] MRI BRAIN W WO CONTRASTon MHPN RIS CONSOLIDATED PN RIS CONSOLIDATED [facility] Work Phone: MRI BRAIN W WO CONTRASTOrder ed By: Mai Villarreal on 07-08-2021 [facility] [employer] Work Phone: Magnesiumon 07-08-2021 Magnesium [Mass/Vol] 1.7 mg/dL 1.6 - 2 .6 mg/dL [facility] [employer] POC Glucose Fingerstickon Glucose [Mass/Vol] 139 mg/dL High 65 - 105 mg/dL [facility] Interpretation and review of laboratory results Abnormal [facility] Glucose [Mass/Vol] 140 mg/dL High 65 - 105 mg/dL [facility] Interpretation and review of laboratory results Abnormal [facility] Glucose [Mass/Vol] 192 mg/dL High 65 - 105 mg/dL [facility] Interpretation and review of laboratory results Abnormal [facility] [employer] Basic Metabolic Panel w/ Ref rafael to MGon 07-07-2021 Anion gap [Moles/Vol] 12 mmol/L 9 - 17 mmol/L [facility] Calcium [Mass/Vol] 7.8 mg/dL Low 8.6 - 10. 4 mg/dL [facility] Chloride [Moles/Vol] 106 mmol/L 98 - 10 7 mmol/L [facility] CO2 [Moles/Vol] 22 mmol/L 20 - 31 mmol/L [facility] Creatinine [Mass/Vol] 0.83 mg/dL 0.50 - 0.90 mg/dL [facility] GFR >60 >60 mL/min [facility] GFR Non- >60 >60 mL/min [facility] GFR/1.73 sq M.predicted MDRD (S/P/Bld) [Vol rate/Area] [facility] Glucose [Mass/Vol] 205 mg/dL High 70 - 99 mg/dL [facility] Potassium [Moles/Vol] 3.9 mmol/L 3.7 - 5.3 mmol/L [facility] Sodium [Moles/Vol] 140 mmol/L 135 - 144 mmol/L [facility] [employer] Urea nitrogen (BldV) [Mass/Vol] 8 mg/dL 6 - 20 mg/dL [facility] C-Reactive Proteinon 022 CRP [Mass/Vol] 141.9 mg/L High 0.0 - 5.0 mg/L [facility] CBC with Auto Differentialon 07-07-2021 Absolute Eos # <0.03 HENSEL S [facility] Absolute Immature Granulocyte 0.06 [facility] Absolute Lymph # 0.72 [facility] Absolute [place] # 0.51 [facility] RS [facility] Basophils (Bld) [#/Vol] 10*3/uL B ON [facility] Basophils/100 WBC (Bld) 0 % 0 - 2 % B ON [facility] Eosinophils/100 WBC (Bld) 0 % Low 1 - 4 % [facility] Hematocrit (Bld) [Volume fraction] 27.9 % Low 36.3 - 47.1 % [facility] Hemoglobin.gastrointest inal spec 1 Ql (Stl) 9.2 g/dL Low 11.9 - 15.1 g/dL [facility] Immature granulocytes/100 WBC (Bld) 1 % High 0 [facility] Interpretation and review of laboratory results Abnormal [facility] Lymphocytes/100 WBC (Bld) 7 % Low 24 - 43 % [facility] MCH (RBC) [Entitic mass] 27.5 pg 25.2 - 33.5 pg [facility] MCHC (RBC) [Mass/Vol] 33.0 g/dL 28.4 - 34.8 g/dL [facility] MCV (RBC) [Entitic vol] 83.5 fL 82.6 - 102.9 fL [facility] Monocytes/100 WBC (Bld) 5 % 3 - 12 % B ON [facility] NRBC Automated 0.0 0.0 per 100 WBC [facility] Platelet distribution width (Bld) [Ratio] 17.2 % High 11.8 - 14.4 % [facility] Platelet mean volume (Bld) [Entitic vol] 9.1 fL 8.1 - 13.5 fL [facility] Platelets (Bld) [#/Vol] 372 10*3/uL [facility] RBC (Bld) [#/Vol] 3.34 10*6/uL Low 3.95 - 5.1 1 m/uL [facility] RBC (Bld) [#/Vol] ANISOCYTOSIS PRESENT [facility] Seg Neutrophils 88 % High 36 - 65 % [facility] Segs Absolute 9.77 High [facility] WBC (Bld) [#/Vol] 11.1 10*3/uL [facility] Microscopic Urinalysison Bacteria, UA MANY Abnormal None [facility] Casts UA 10 TO 20 HYALINE Reference range defined for non-centrifuged specimen. [facility] Epithelial Cells UA 10 TO 20 [facility] Interpretation and review of laboratory results Abnormal [facility] RBC, UA 20 TO 50 [facility] WBC, UA 10 TO 20 [facility] No Panel Informationon 07-07 Interpretation and review of laboratory results Abnormal [facility] POC Glucose Fingerstickon Glucose [Mass/Vol] 126 mg/dL High 65 - 105 mg/dL [facility] Interpretation and review of laboratory results Abnormal [facility] Glucose [Mass/Vol] 163 mg/dL High 65 - 105 mg/dL [facility] Interpretation and review of laboratory results Abnormal [facility] Glucose [Mass/Vol] 132 mg/dL High 65 - 105 mg/dL [facility] Interpretation and review of laboratory results Abnormal [facility] TYPE AND SCREENon 07-07-2021 ABO/Rh Positive [facility] Arm Band Number BE [id number] [facility] Blood Bank Blood Product Expiration Date [facility] Blood Bank ISBT Product Blood Type 6200 [facility] Blood Bank Unit Type and Rh Positive [facility] Blood product type Nom (BPU) Leukocyte Reduced Red Cell [facility] Blood product unit ID (Dose) [#] [id number] [facility] Crossmatch Result COMPATIBLE [facility] Dispense Status TRANSFUSED [facility] Expiration Date 07/09/2021,2359 [facility] Product Code Blood Bank [id number] B ON [facility] Transfusion Status OK TO TRANSFUSE B ON [facility] Unit Divison 0 [facility] Unit Issue Date/Time [facility] Urinalysis with Reflex to Cu ltureon 07-07-2021 Bilirubin Urine Negative NEGATIVE [facility] Color, UA Yellow Yellow [facility] Glucose, Ur 1+ Abnormal NEGATIVE [facility] Interpretation and review of laboratory results Abnormal [facility] Ketones Ql (U) TRACE Abnormal NEGATIVE [facility] Leukocyte esterase Test strip Ql (U) Negative NEGATIVE [facility] Nitrite, Urine Negative NEGATIVE [facility] pH, UA 5.5 [facility] Protein, UA Negative NEGATIVE [facility] Specific [place], UA 1.024 [facility] Turbidity UA Clear Clear [facility] Urine Hgb MODERATE Abnormal NEGATIVE [facility] Urobilinogen, Urine Normal Normal [facility] Basic Metabolic Panel w/ Ref rafael to MGon 07-06-2021 Anion gap [Moles/Vol] 8 mmol/L Low 9 - 17 mmol/L [facility] Calcium [Mass/Vol] 8.1 mg/dL Low 8.6 - 10. 4 mg/dL [facility] Chloride [Moles/Vol] 102 mmol/L 98 - 10 7 mmol/L [facility] CO2 [Moles/Vol] 23 mmol/L 20 - 31 mmol/L [facility] Creatinine [Mass/Vol] 0.9 mg/dL 0.50 - 0.90 mg/dL [facility] GFR >60 >60 mL/min [facility] GFR Non- >60 >60 mL/min [facility] GFR/1.73 sq M.predicted MDRD (S/P/Bld) [Vol rate/Area] [facility] Glucose [Mass/Vol] 138 mg/dL High 70 - 99 mg/dL [facility] Interpretation and review of laboratory results Abnormal [facility] Potassium [Moles/Vol] 3.2 mmol/L Low 3.7 - 5.3 mmol/L [facility] Sodium [Moles/Vol] 133 mmol/L Low 135 - 144 mmol/L [facility] Urea nitrogen (BldV) [Mass/Vol] 7 mg/dL 6 - 20 mg/dL [facility] Blood Gas, Arterialon 2021 Adarsh Test INFORMATION NOT PROVIDED [facility] Carboxyhemoglobin 1.1 % 0 - 5 % [facility] FIO2 100% [facility] HCO3 (Bld) [Moles/Vol] 22.7 mmol/L 22 - 27 mmol/L [facility] Oxygen saturation in Blood 99.6 % 94 - 100 % [facility] pCO2, Arterial 27.4 Low [facility] pH, Arterial 7.529 High [facility] pO2, Arterial 277.0 High [facility] Positive Base Excess, Art 0.5 mmol/L 0.0 - 2.0 mmol/L [facility] Pt Temp 37.0 [facility] C-Reactive Proteinon 022 CRP [Mass/Vol] 183.8 mg/L High 0.0 - 5.0 mg/L [facility] Interpretation and review of laboratory results Abnormal [facility] CBC with Auto Differentialon 07-06-2021 Absolute Eos # 0.25 HENSEL S [facility] Absolute Immature Granulocyte 0.04 [facility] Absolute Lymph # 1.52 [facility] Absolute [place] # 0.43 [facility] Basophils (Bld) [#/Vol] 10*3/uL B ON [facility] Basophils/100 WBC (Bld) 0 % 0 - 2 % B ON [facility] Eosinophils/100 WBC (Bld) 3 % 1 - 4 % [facility] Hematocrit (Bld) [Volume fraction] 27.5 % Low 36.3 - 47.1 % [facility] Hemoglobin.gastrointest inal spec 1 Ql (Stl) 8.5 g/dL Low 11.9 - 15.1 g/dL [facility] Immature granulocytes/100 WBC (Bld) 1 % High 0 [facility] Interpretation and review of laboratory results Abnormal [facility] Lymphocytes/100 WBC (Bld) 20 % Low 24 - 43 % [facility] MCH (RBC) [Entitic mass] 26.0 pg 25.2 - 33.5 pg [facility] MCHC (RBC) [Mass/Vol] 30.9 g/dL 28.4 - 34.8 g/dL [facility] MCV (RBC) [Entitic vol] 84.1 fL 82.6 - 102.9 fL [facility] Monocytes/100 WBC (Bld) 6 % 3 - 12 % B [facility] NRBC Automated 0.0 0.0 per 100 WBC [facility] Platelet distribution width (Bld) [Ratio] 18.2 % High 11.8 - 14.4 % [facility] Platelet mean volume (Bld) [Entitic vol] 9.4 fL 8.1 - 13.5 fL [facility] Platelets (Bld) [#/Vol] 378 10*3/uL [facility] RBC (Bld) [#/Vol] 3.27 10*6/uL Low 3.95 - 5.1 1 m/uL [facility] RBC (Bld) [#/Vol] ANISOCYTOSIS PRESENT [facility] Seg Neutrophils 70 % High 36 - 65 % [facility] Segs Absolute 5.41 [facility] WBC (Bld) [#/Vol] 7.7 10*3/uL [facility] Calcium, Ionizedon Calcium [Moles/Vol] 1.14 mmol/L 1.13 - 1 .33 mmol/L [facility] Calcium [Moles/Vol] 1.13 mmol/L 1.13 - 1 .33 mmol/L [facility] Chloride, Whole Bloodon 06-18 Chloride [Moles/Vol] 109 mmol/L 98 - 11 0 mmol/L [facility] Culture, Blood 1on 2 Bacteria identified Cx Nom (Unsp spec) Positive Abnormal [facility] Bacteria identified Cx Nom (Unsp spec) DIRECT GRAM STAIN FROM BOTTLE: GRAM POSITIVE COCCI IN CLUSTERS [facility] Bacteria identified Cx Nom (Unsp spec) STAPHYLOCOCCUS AUREUS For susceptibility, refer to previous culture. Abnormal [facility] Bacteria identified Cx Nom (Unsp spec) (NOTE) Direct Gram Stain from bottle result called to and read back by: RICH Miranda 07/05/21 0115 [facility] Interpretation and review of laboratory results Abnormal [facility] Special Requests R HAND 10ML [facility] Specimen Description .[facility] Bacteria identified Cx Nom (Unsp spec) Positive Abnormal [facility] Bacteria identified Cx Nom (Unsp spec) DIRECT GRAM STAIN FROM BOTTLE: GRAM POSITIVE COCCI IN CLUSTERS [facility] [employer] Bacteria identified Cx Nom (Unsp spec) STAPHYLOCOCCUS AUREUS This isolate is methicillin susceptible. Abnormal [facility] Bacteria identified Cx Nom (Unsp spec) (NOTE) Direct Gram Stain from bottle result called to and read back by: RICH Miranda RN AT 0020 ON 07/05/21 [facility] Interpretation and review of laboratory results Abnormal [facility] Special Requests L HAND 20ML [facility] [employer] Specimen Description .[facility]OD [facility] FLUORO FOR SURGICAL PROCEDUR ESon 07-06-2021 PN RIS CONSOLIDATED Glucose, Whole Bloodon 07-06 Glucose [Mass/Vol] 131 mg/dL High 65 - 105 mg/dL [facility] Magnesiumon 07-06-2021 Magnesium [Mass/Vol] 2.3 mg/dL 1.6 - 2 .6 mg/dL [facility] No Panel Informationon 07-06 [facility] Interpretation and review of laboratory results Abnormal [facility] OPEN HEART PANELon 2 Adarsh Test INFORMATION NOT PROVIDED [facility] Carboxyhemoglobin 0.8 % 0 - 5 % [facility] Chloride [Moles/Vol] 108 mmol/L 98 - 11 0 mmol/L [facility] FIO2 56% [facility] Glucose [Mass/Vol] 207 mg/dL High 65 - 105 mg/dL [facility] HCO3 (Bld) [Moles/Vol] 21.4 mmol/L Low 22 - 27 mmol/L [facility] Hematocrit (Bld) [Volume fraction] 30.6 % Low 36.3 - 47.1 % [facility] Hemoglobin.gastrointest inal spec 1 Ql (Stl) 9.9 Low [facility] Interpretation and review of laboratory results Abnormal [facility] Negative Base Excess, Art 2.3 mmol/L High 0.0 - 2.0 mmol/L [facility] Oxygen saturation in Blood 99.4 % 94 - 100 % [facility] pCO2, Arterial 34.8 [facility] pH, Arterial 7.406 [facility] pO2, Arterial 279.0 High [facility] Potassium [Moles/Vol] 3.7 mmol/L 3.6 - 5.0 mmol/L [facility] Pt Temp 35.9 [facility] Sodium [Moles/Vol] 140 mmol/L 136 - 145 mmol/L [facility] Open Heart H&Hon 07-06-2021 Hematocrit (Bld) [Volume fraction] 21.0 % Low 36.3 - 47.1 % [facility] Hemoglobin.gastrointest inal spec 1 Ql (Stl) 6.7 Critically low [facility] POC Glucose Fingerstickon Glucose [Mass/Vol] 192 mg/dL High 65 - 105 mg/dL [facility] Interpretation and review of laboratory results Abnormal [facility] Glucose [Mass/Vol] 136 mg/dL High 65 - 105 mg/dL [facility] Interpretation and review of laboratory results Abnormal [facility] Glucose [Mass/Vol] 132 mg/dL High 65 - 105 mg/dL [facility] Interpretation and review of laboratory results Abnormal [facility] Potassium, Whole Bloodon Potassium [Moles/Vol] 3.6 mmol/L 3.6 - 5.0 mmol/L [facility] Sodium, Whole Bloodon 2021 Sodium [Moles/Vol] 140 mmol/L 136 - 145 mmol/L [facility] Basic Metabolic Panel w/ Ref rafael to MGon 07-05-2021 Anion gap [Moles/Vol] 10 mmol/L 9 - 17 mmol/L [facility] Calcium [Mass/Vol] 8.4 mg/dL Low 8.6 - 10. 4 mg/dL [facility] Chloride [Moles/Vol] 101 mmol/L 98 - 10 7 mmol/L [facility] CO2 [Moles/Vol] 27 mmol/L 20 - 31 mmol/L [facility] Creatinine [Mass/Vol] 0.79 mg/dL 0.50 - 0.90 mg/dL [facility] GFR >60 >60 mL/min [facility] GFR Non- >60 >60 mL/min [facility] GFR/1.73 sq M.predicted MDRD (S/P/Bld) [Vol rate/Area] [facility] Glucose [Mass/Vol] 136 mg/dL High 70 - 99 mg/dL [facility] Interpretation and review of laboratory results Abnormal [facility] Potassium [Moles/Vol] 3.1 mmol/L Low 3.7 - 5.3 mmol/L [facility] Sodium [Moles/Vol] 138 mmol/L 135 - 144 mmol/L [facility] Urea nitrogen (BldV) [Mass/Vol] 7 mg/dL 6 - 20 mg/dL [facility] C-Reactive Proteinon 022 CRP [Mass/Vol] 186.3 mg/L High 0.0 - 5.0 mg/L [facility] Interpretation and review of laboratory results Abnormal [facility] CBC with Auto Differentialon 07-05-2021 Absolute Eos # 0.15 [facility] Absolute Immature Granulocyte 0.06 [facility] Absolute Lymph # 2.56 [facility] Absolute [place] # 0.43 [facility] Basophils (Bld) [#/Vol] 10*3/uL B ON [facility] Basophils/100 WBC (Bld) 0 % 0 - 2 % B ON [facility] Eosinophils/100 WBC (Bld) 2 % 1 - 4 % [facility] Hematocrit (Bld) [Volume fraction] 24.6 % Low 36.3 - 47.1 % [facility] Hemoglobin.gastrointest inal spec 1 Ql (Stl) 7.9 g/dL Low 11.9 - 15.1 g/dL [facility] Immature granulocytes/100 WBC (Bld) 1 % High 0 [facility] Interpretation and review of laboratory results Abnormal [facility] Lymphocytes/100 WBC (Bld) 26 % 24 - 43 % [facility] MCH (RBC) [Entitic mass] 26.5 pg 25.2 - 33.5 pg [facility] MCHC (RBC) [Mass/Vol] 32.1 g/dL 28.4 - 34.8 g/dL [facility] MCV (RBC) [Entitic vol] 82.6 fL 82.6 - 102.9 fL [facility] Monocytes/100 WBC (Bld) 4 % 3 - 12 % B ON [facility] NRBC Automated 0.0 0.0 per 100 WBC [facility] Platelet distribution width (Bld) [Ratio] 17.5 % High 11.8 - 14.4 % [facility] Platelet mean volume (Bld) [Entitic vol] 9.7 fL 8.1 - 13.5 fL [facility] Platelets (Bld) [#/Vol] 341 10*3/uL [facility] RBC (Bld) [#/Vol] 2.98 10*6/uL Low 3.95 - 5.1 1 m/uL [facility] RBC (Bld) [#/Vol] ANISOCYTOSIS PRESENT [facility] Seg Neutrophils 68 % High 36 - 65 % [facility] Segs Absolute 6.79 [facility] WBC (Bld) [#/Vol] 10.0 10*3/uL [facility] S [facility] Culture, Blood 1on 2 Bacteria identified Cx Nom (Unsp spec) Positive Abnormal [facility] Bacteria identified Cx Nom (Unsp spec) DIRECT GRAM STAIN FROM BOTTLE: GRAM POSITIVE COCCI IN CLUSTERS [facility] Bacteria identified Cx Nom (Unsp spec) STAPHYLOCOCCUS AUREUS This isolate is methicillin susceptible. Abnormal [facility] Bacteria identified Cx Nom (Unsp spec) (NOTE) Direct Gram Stain from bottle result called to and read back by: VIRGIE Praker AT 0225 ON 07/04/21 [facility] Interpretation and review of laboratory results Abnormal [facility] Special Requests LT HAND 2ML [facility] Specimen Description .BLOOD [facility] FL MODIFIED BARIUM SWALLOW W VIDEOon 07-05-2021 [facility] RIS CONSOLIDATED MHPN RIS CONSOLIDATED [facility] Work Phone: [facility] Work Phone: Radiology Study observation (narrative) [facility] [employer] [facility] [employer] Work Phone: MRI BRAIN W WO CONTRASTon Radiology Study observation (narrative) [facility] [employer] Work Phone: MRI CERVICAL SPINE W WO CONT RASTon 07-05-2021 [facility] RIS CONSOLIDATED [facility] RIS CONSOLIDATED [facility] Work Phone: MRI CERVICAL SPINE W WO CONT RASTOrdered By: Fredi Ramirez on 07-05-2021 [facility] Work Phone: Magnesiumon 07-05-2021 Magnesium [Mass/Vol] 1.9 mg/dL 1.6 - 2 .6 mg/dL [facility] [employer] Protein, CSFon 07-05-2021 [employer] Protein, CSF 3.3 ng/mL 0.00 - 5.50 ng/mL [facility] POC Glucose Fingerstickon Glucose [Mass/Vol] 102 mg/dL 65 - 105 mg/dL [facility] Glucose [Mass/Vol] 185 mg/dL High 65 - 105 mg/dL [facility] Interpretation and review of laboratory results Abnormal [facility] Glucose [Mass/Vol] 134 mg/dL High 65 - 105 mg/dL [facility] Interpretation and review of laboratory results Abnormal [facility] Glucose [Mass/Vol] 147 mg/dL High 65 - 105 mg/dL [facility] Interpretation and review of laboratory results Abnormal [facility] Potassiumon 07-05-2021 Potassium [Moles/Vol] 3.8 mmol/L 3.7 - 5.3 mmol/L [facility] Basic Metabolic Panel w/ Ref rafael to MGon 07-04-2021 Anion gap [Moles/Vol] 10 mmol/L 9 - 17 mmol/L [facility] Calcium [Mass/Vol] 8.0 mg/dL Low 8.6 - 10. 4 mg/dL [facility] Chloride [Moles/Vol] 102 mmol/L 98 - 10 7 mmol/L [facility] CO2 [Moles/Vol] 26 mmol/L 20 - 31 mmol/L [facility] Creatinine [Mass/Vol] 0.72 mg/dL 0.50 - 0.90 mg/dL [facility] GFR >60 >60 mL/min [facility] GFR Non- >60 >60 mL/min [facility] GFR/1.73 sq M.predicted MDRD (S/P/Bld) [Vol rate/Area] [facility] Glucose [Mass/Vol] 122 mg/dL High 70 - 99 mg/dL [facility] Interpretation and review of laboratory results Abnormal [facility] Potassium [Moles/Vol] 3.5 mmol/L Low 3.7 - 5.3 mmol/L [facility] Sodium [Moles/Vol] 138 mmol/L 135 - 144 mmol/L [facility] Urea nitrogen (BldV) [Mass/Vol] 8 mg/dL 6 - 20 mg/dL [facility] C-Reactive Proteinon 022 CRP [Mass/Vol] 191.8 mg/L High 0.0 - 5.0 mg/L [facility] Interpretation and review of laboratory results Abnormal [facility] CBC with Auto Differentialon 07-04-2021 Absolute Eos # 0.18 [facility] Absolute Immature Granulocyte 0.05 [facility] Absolute Lymph # 2.24 [facility] Absolute [place] # 0.55 [facility] RS [facility] Basophils (Bld) [#/Vol] 10*3/uL B ON [facility] Basophils/100 WBC (Bld) 0 % 0 - 2 % B ON [facility] Eosinophils/100 WBC (Bld) 2 % 1 - 4 % [facility] Hematocrit (Bld) [Volume fraction] 22.8 % Low 36.3 - 47.1 % [facility] Hemoglobin.gastrointest inal spec 1 Ql (Stl) 7.4 g/dL Low 11.9 - 15.1 g/dL [facility] Immature granulocytes/100 WBC (Bld) 1 % High 0 [facility] Interpretation and review of laboratory results Abnormal [facility] Lymphocytes/100 WBC (Bld) 22 % Low 24 - 43 % [facility] MCH (RBC) [Entitic mass] 26.5 pg 25.2 - 33.5 pg [facility] MCHC (RBC) [Mass/Vol] 32.5 g/dL 28.4 - 34.8 g/dL [facility] MCV (RBC) [Entitic vol] 81.7 fL Low 82.6 - 102.9 fL [facility] Monocytes/100 WBC (Bld) 5 % 3 - 12 % B ON [facility] NRBC Automated 0.0 0.0 per 100 WBC [facility] Platelet distribution width (Bld) [Ratio] 16.9 % High 11.8 - 14.4 % [facility] Platelet mean volume (Bld) [Entitic vol] 9.0 fL 8.1 - 13.5 fL [facility] Platelets (Bld) [#/Vol] 231 10*3/uL [facility] RBC (Bld) [#/Vol] 2.79 10*6/uL Low 3.95 - 5.1 1 m/uL [facility] RBC (Bld) [#/Vol] ANISOCYTOSIS PRESENT [facility] Seg Neutrophils 71 % High 36 - 65 % [facility] Segs Absolute 7.32 [facility] WBC (Bld) [#/Vol] 10.4 10*3/uL [facility] Culture, Blood 1on 2 Bacteria identified Cx Nom (Unsp spec) Positive Abnormal [facility] Bacteria identified Cx Nom (Unsp spec) DIRECT GRAM STAIN FROM BOTTLE: GRAM POSITIVE COCCI IN CLUSTERS [facility] Bacteria identified Cx Nom (Unsp spec) Staphylococcus aureus Detected: mecA/C and MREJ Not Detected Methodology- Polymerase Chain Reaction (PCR) [facility] Bacteria identified Cx Nom (Unsp spec) STAPHYLOCOCCUS AUREUS Abnormal [facility] Bacteria identified Cx Nom (Unsp spec) (NOTE) Direct Gram Stain from bottle and Polymerase Chain Reaction (PCR) results called to and read back by: VIRGIE Joaquin on 07/03/21 at 7:45 [facility] Interpretation and review of laboratory results Abnormal [facility] Special Requests L HAND 1 ML [facility] Specimen Description .BLOOD [facility] MISCELLANEOUS TESTINGon 06-17 Send Out Report PERFORMED AT W[employer] [facility] Test Name MESOPOTAMIA ENC2 CSF [facility] MRI CERVICAL SPINE W WO CONT RASTon 07-04-2021 Radiology Study observation (narrative) [facility] Work Phone: Magnesiumon 07-04-2021 Magnesium [Mass/Vol] 1.8 mg/dL 1.6 - 2 .6 mg/dL [facility] POC Glucose Fingerstickon Glucose [Mass/Vol] 113 mg/dL High 65 - 105 mg/dL [facility] Interpretation and review of laboratory results Abnormal [facility] Glucose [Mass/Vol] 188 mg/dL High 65 - 105 mg/dL [facility] Interpretation and review of laboratory results Abnormal [facility] Glucose [Mass/Vol] 118 mg/dL High 65 - 105 mg/dL [facility] Interpretation and review of laboratory results Abnormal [facility] Glucose [Mass/Vol] 135 mg/dL High 65 - 105 mg/dL [facility] Interpretation and review of laboratory results Abnormal [facility] Basic Metabolic Panel w/ Ref rafael to MGon 07-03-2021 Anion gap [Moles/Vol] 11 mmol/L 9 - 17 mmol/L [facility] Calcium [Mass/Vol] 8.3 mg/dL Low 8.6 - 10. 4 mg/dL [facility] Chloride [Moles/Vol] 98 mmol/L 98 - 10 7 mmol/L [facility] CO2 [Moles/Vol] 25 mmol/L 20 - 31 mmol/L [facility] Creatinine [Mass/Vol] 0.81 mg/dL 0.50 - 0.90 mg/dL [facility] GFR >60 >60 mL/min [facility] GFR Non- >60 >60 mL/min [facility] GFR/1.73 sq M.predicted MDRD (S/P/Bld) [Vol rate/Area] [facility] Glucose [Mass/Vol] 108 mg/dL High 70 - 99 mg/dL [facility] Interpretation and review of laboratory results Abnormal [facility] Potassium [Moles/Vol] 2.9 mmol/L Critically low 3.7 - 5.3 mmol/L [facility] Sodium [Moles/Vol] 134 mmol/L Low 135 - 144 mmol/L [facility] Urea nitrogen (BldV) [Mass/Vol] 7 mg/dL 6 - 20 mg/dL [facility] C-Reactive Proteinon 022 CRP [Mass/Vol] 166.3 mg/L High 0.0 - 5.0 mg/L [facility] Interpretation and review of laboratory results Abnormal [facility] CBC with Auto Differentialon 07-03-2021 Absolute Eos # 0.19 [facility] Absolute Immature Granulocyte 0.09 [facility] Absolute Lymph # 2.40 [facility] Absolute [place] # 0.64 [facility] RS [facility] Basophils (Bld) [#/Vol] 10*3/uL B ON [facility] Basophils/100 WBC (Bld) 0 % 0 - 2 % B ON [facility] Eosinophils/100 WBC (Bld) 1 % 1 - 4 % [facility] Hematocrit (Bld) [Volume fraction] 26.1 % Low 36.3 - 47.1 % [facility] Hemoglobin.gastrointest inal spec 1 Ql (Stl) 8.4 g/dL Low 11.9 - 15.1 g/dL [facility] Immature granulocytes/100 WBC (Bld) 1 % High 0 [facility] Interpretation and review of laboratory results Abnormal [facility] Lymphocytes/100 WBC (Bld) 18 % Low 24 - 43 % [facility] MCH (RBC) [Entitic mass] 26.1 pg 25.2 - 33.5 pg [facility] MCHC (RBC) [Mass/Vol] 32.2 g/dL 28.4 - 34.8 g/dL [facility] MCV (RBC) [Entitic vol] 81.1 fL Low 82.6 - 102.9 fL [facility] Monocytes/100 WBC (Bld) 5 % 3 - 12 % B ON [facility] NRBC Automated 0.0 0.0 per 100 WBC [facility] Platelet distribution width (Bld) [Ratio] 16.5 % High 11.8 - 14.4 % [facility] Platelet mean volume (Bld) [Entitic vol] 8.8 fL 8.1 - 13.5 fL [facility] Platelets (Bld) [#/Vol] 261 10*3/uL [facility] RBC (Bld) [#/Vol] 3.22 10*6/uL Low 3.95 - 5.1 1 m/uL [facility] RBC (Bld) [#/Vol] ANISOCYTOSIS PRESENT [facility] Seg Neutrophils 75 % High 36 - 65 % [facility] Segs Absolute 10.31 High [facility] WBC (Bld) [#/Vol] 13.6 10*3/uL High [facility] [facility] Culture, Blood 1on 2 Bacteria identified Cx Nom (Unsp spec) Positive Abnormal [facility] Bacteria identified Cx Nom (Unsp spec) DIRECT GRAM STAIN FROM BOTTLE: GRAM POSITIVE COCCI IN CLUSTERS [facility] Bacteria identified Cx Nom (Unsp spec) STAPHYLOCOCCUS AUREUS This isolate is methicillin susceptible. Abnormal [facility] Bacteria identified Cx Nom (Unsp spec) (NOTE) Direct Gram Stain from bottle result called to and read back by: VIRGIE Noland at 2200 on 07.01.2021 [facility] Interpretation and review of laboratory results Abnormal [facility] Specimen Description .BLOOD [facility] ECHO Complete 2D W Doppler W Coloron 07-03-2021 [facility] STV CPACS [facility] Work Phone: ECHO Complete 2D W Doppler W ColorOrdered By: Sintia Salazar on 07-03-2021 [facility] Work Phone: [place] MODIFIED BARIUM SWALLOW W VIDEOon 07-03-2021 [facility] RIS CONSOLIDATED [facility] RIS CONSOLIDATED [facility] Work Phone: Radiology Study observation (narrative) [facility] Work Phone: [place] MODIFIED BARIUM SWALLOW W VIDEOOrdered By: Rufus Burnette on 07-03-2021 [facility] Work Phone: Hemoglobin and Hematocriton 07-03-2021 Hematocrit (Bld) [Volume fraction] 24.2 % Low 36.3 - 47.1 % [facility] Hemoglobin.gastrointest inal spec 1 Ql (Stl) 7.8 g/dL Low 11.9 - 15.1 g/dL [facility] Interpretation and review of laboratory results Abnormal [facility] Herpes simplex virus PCRon 0 07-03-2021 HSV, PCR Not detected [facility] Magnesiumon 07-03-2021 Magnesium [Mass/Vol] 2.0 mg/dL 1.6 - 2 .6 mg/dL [facility] NM BONE SCAN 3 PHASEon 07-03 [facility] RIS CONSOLIDATED [facility] RIS CONSOLIDATED [facility] Work Phone: Radiology Study observation (narrative) [facility] [employer] Work Phone: NM BONE SCAN 3 PHASEOrdered By: Mark Anthony Duke on 07-03-2021 [facility] [employer] Work Phone: POC Glucose Fingerstickon Glucose [Mass/Vol] 146 mg/dL High 65 - 105 mg/dL [facility] Interpretation and review of laboratory results Abnormal [facility] Glucose [Mass/Vol] 108 mg/dL High 65 - 105 mg/dL [facility] Interpretation and review of laboratory results Abnormal [facility] Glucose [Mass/Vol] 168 mg/dL High 65 - 105 mg/dL [facility] Interpretation and review of laboratory results Abnormal [facility] Glucose [Mass/Vol] 111 mg/dL High 65 - 105 mg/dL [facility] Interpretation and review of laboratory results Abnormal [facility] Potassiumon 07-03-2021 Interpretation and review of laboratory results Abnormal [facility] Potassium [Moles/Vol] 3.4 mmol/L Low 3.7 - 5.3 mmol/L [facility] [employer] XR CERVICAL SPINE FLEXION AN D EXTENSIONon 07-03-2021 PN RIS CONSOLIDATED PN RIS CONSOLIDATED [facility] Work Phone: Radiology Study observation (narrative) [facility] ALYSIA WOLF [facility] [employer] Work Phone: XR CERVICAL SPINE FLEXION AN D EXTENSIONOrdered By: Chanda Garland on 07-03-2021 [facility] Work Phone: Basic Metabolic Panel w/ Ref rafael to MGon 07-02-2021 Anion gap [Moles/Vol] 11 mmol/L 9 - 17 mmol/L [facility] Calcium [Mass/Vol] 8.0 mg/dL Low 8.6 - 10. 4 mg/dL [facility] Chloride [Moles/Vol] 98 mmol/L 98 - 10 7 mmol/L [facility] CO2 [Moles/Vol] 25 mmol/L 20 - 31 mmol/L [facility] Creatinine [Mass/Vol] 0.66 mg/dL 0.50 - 0.90 mg/dL [facility] GFR >60 >60 mL/min [facility] GFR Non- >60 >60 mL/min [facility] GFR/1.73 sq M.predicted MDRD (S/P/Bld) [Vol rate/Area] [facility] Glucose [Mass/Vol] 67 mg/dL Low 70 - 99 mg/dL [facility] Interpretation and review of laboratory results Abnormal [facility] Potassium [Moles/Vol] 2.9 mmol/L Critically low 3.7 - 5.3 mmol/L [facility] Sodium [Moles/Vol] 134 mmol/L Low 135 - 144 mmol/L [facility] Urea nitrogen (BldV) [Mass/Vol] 9 mg/dL 6 - 20 mg/dL [facility] C-Reactive Proteinon 022 CRP [Mass/Vol] 61.4 mg/L High 0.0 - 5.0 mg/L [facility] Interpretation and review of laboratory results Abnormal [facility] CBC with Auto Differentialon 07-02-2021 Absolute Eos # 0.36 [facility] [employer] Absolute Immature Granulocyte 0.11 [facility] Absolute Lymph # 3.45 [facility] Absolute [place] # 0.69 [facility] Basophils (Bld) [#/Vol] 10*3/uL [facility] Basophils/100 WBC (Bld) 0 % 0 - 2 % [facility] Eosinophils/100 WBC (Bld) 2 % 1 - 4 % [facility] Hematocrit (Bld) [Volume fraction] 28.2 % Low 36.3 - 47.1 % [facility] Hemoglobin.gastrointest inal spec 1 Ql (Stl) 9.0 g/dL Low 11.9 - 15.1 g/dL [facility] Immature granulocytes/100 WBC (Bld) 1 % High 0 [facility] Interpretation and review of laboratory results Abnormal [facility] Lymphocytes/100 WBC (Bld) 21 % Low 24 - 43 % [facility] MCH (RBC) [Entitic mass] 25.9 pg 25.2 - 33.5 pg [facility] MCHC (RBC) [Mass/Vol] 31.9 g/dL 28.4 - 34.8 g/dL [facility] MCV (RBC) [Entitic vol] 81.3 fL Low 82.6 - 102.9 fL [facility] Monocytes/100 WBC (Bld) 4 % 3 - 12 % [facility] [facility] NRBC Automated 0.0 0.0 per 100 WBC [facility] Platelet distribution width (Bld) [Ratio] 16.3 % High 11.8 - 14.4 % [facility] Platelet mean volume (Bld) [Entitic vol] 8.8 fL 8.1 - 13.5 fL [facility] Platelets (Bld) [#/Vol] 299 10*3/uL [facility] RBC (Bld) [#/Vol] 3.47 10*6/uL Low 3.95 - 5.1 1 m/uL [facility] RBC (Bld) [#/Vol] ANISOCYTOSIS PRESENT [facility] Seg Neutrophils 72 % High 36 - 65 % [facility] Segs Absolute 12.06 High [facility] WBC (Bld) [#/Vol] 16.7 10*3/uL High [facility] S [facility] Culture, Blood 1on 2 Bacteria identified Cx Nom (Unsp spec) Positive Abnormal [facility] Bacteria identified Cx Nom (Unsp spec) DIRECT GRAM STAIN FROM BOTTLE: GRAM POSITIVE COCCI IN CLUSTERS [facility] Bacteria identified Cx Nom (Unsp spec) STAPHYLOCOCCUS AUREUS This isolate is methicillin susceptible. Abnormal [facility] Bacteria identified Cx Nom (Unsp spec) (NOTE) Direct Gram Stain from bottle result called to and read back by: VIRGIE Ferraro AT 2058 ON 06/30/21 [facility] Interpretation and review of laboratory results Abnormal [facility] Special Requests LT HAND 9ML [facility] Specimen Description .BLOOD [facility] Hemoglobin and Hematocriton 07-02-2021 Hematocrit (Bld) [Volume fraction] 24.8 % Low 36.3 - 47.1 % [facility] Hemoglobin.gastrointest inal spec 1 Ql (Stl) 8.1 g/dL Low 11.9 - 15.1 g/dL [facility] Interpretation and review of laboratory results Abnormal [facility] Hematocrit (Bld) [Volume fraction] 29.0 % Low 36.3 - 47.1 % [facility] Hemoglobin.gastrointest inal spec 1 Ql (Stl) 9.1 g/dL Low 11.9 - 15.1 g/dL [facility] Interpretation and review of laboratory results Abnormal [facility] Magnesiumon 07-02-2021 Magnesium [Mass/Vol] 2.3 mg/dL 1.6 - 2 .6 mg/dL [facility] POC Glucose Fingerstickon Glucose [Mass/Vol] 122 mg/dL High 65 - 105 mg/dL [facility] Interpretation and review of laboratory results Abnormal [facility] Glucose [Mass/Vol] 105 mg/dL 65 - 105 mg/dL [facility] Glucose [Mass/Vol] 113 mg/dL High 65 - 105 mg/dL [facility] Interpretation and review of laboratory results Abnormal [facility] Glucose [Mass/Vol] 78 mg/dL 65 - 105 mg/dL [facility] Glucose [Mass/Vol] 111 mg/dL High 65 - 105 mg/dL [facility] Interpretation and review of laboratory results Abnormal [facility] Potassiumon 07-02-2021 Interpretation and review of laboratory results Abnormal [facility] Potassium [Moles/Vol] 3.5 mmol/L Low 3.7 - 5.3 mmol/L [facility] Interpretation and review of laboratory results Abnormal [facility] Potassium [Moles/Vol] 3.5 mmol/L Low 3.7 - 5.3 mmol/L [facility] Basic Metabolic Panel w/ Ref rafael to MGon 07-01-2021 Anion gap [Moles/Vol] 10 mmol/L 9 - 17 mmol/L [facility] Calcium [Mass/Vol] 8.2 mg/dL Low 8.6 - 10. 4 mg/dL [facility] Chloride [Moles/Vol] 102 mmol/L 98 - 10 7 mmol/L [facility] CO2 [Moles/Vol] 25 mmol/L 20 - 31 mmol/L [facility] Creatinine [Mass/Vol] 0.97 mg/dL High 0.50 - 0.90 mg/dL [facility] GFR >60 >60 mL/min [facility] GFR Non- 59 mL/min Low >60 [facility] GFR/1.73 sq M.predicted MDRD (S/P/Bld) [Vol rate/Area] [facility] Glucose [Mass/Vol] 117 mg/dL High 70 - 99 mg/dL [facility] Interpretation and review of laboratory results Abnormal [facility] Potassium [Moles/Vol] 2.2 mmol/L Critically low 3.7 - 5.3 mmol/L [facility] Sodium [Moles/Vol] 137 mmol/L 135 - 144 mmol/L [facility] Urea nitrogen (BldV) [Mass/Vol] 18 mg/dL 6 - 20 mg/dL [facility] C-Reactive Proteinon 022 CRP [Mass/Vol] 38.5 mg/L High 0.0 - 5.0 mg/L [facility] Interpretation and review of laboratory results Abnormal [facility] CBC with Auto Differentialon 07-01-2021 Absolute Eos # 0.00 HENSEL S [facility] Absolute Immature Granulocyte 0.00 [facility] Absolute Lymph [facility] 2.14 [facility] Absolute [place] # 0.76 [facility] RS [facility] Basophils (Bld) [#/Vol] 0.00 10*3/uL [facility] Basophils/100 WBC (Bld) 0 % 0 - 2 % B ON [facility] Eosinophils/100 WBC (Bld) 0 % Low 1 - 4 % [facility] Hematocrit (Bld) [Volume fraction] 28.4 % Low 36.3 - 47.1 % [facility] Hemoglobin.gastrointest inal spec 1 Ql (Stl) 9.0 g/dL Low 11.9 - 15.1 g/dL [facility] Immature granulocytes/100 WBC (Bld) 0 % 0 [facility] Interpretation and review of laboratory results Abnormal [facility] Lymphocytes/100 WBC (Bld) 17 % Low 24 - 44 % [facility] MCH (RBC) [Entitic mass] 26.2 pg 25.2 - 33.5 pg [facility] MCHC (RBC) [Mass/Vol] 31.7 g/dL 28.4 - 34.8 g/dL [facility] MCV (RBC) [Entitic vol] 82.8 fL 82.6 - 102.9 fL [facility] Monocytes/100 WBC (Bld) 6 % 1 - 7 % B ON [facility] Morphology Malachi (Bld) [Interp] ANISOCYTOSIS PRESENT [facility] NRBC Automated 0.0 0.0 per 100 WBC [facility] Platelet distribution width (Bld) [Ratio] 16.2 % High 11.8 - 14.4 % [facility] Platelet mean volume (Bld) [Entitic vol] 8.8 fL 8.1 - 13.5 fL [facility] Platelets (Bld) [#/Vol] 284 10*3/uL [facility] RBC (Bld) [#/Vol] 3.43 10*6/uL Low 3.95 - 5.1 1 m/uL [facility] Seg Neutrophils 77 % High 36 - 66 % [facility] Segs Absolute 9.70 High [facility] WBC (Bld) [#/Vol] 12.6 10*3/uL High [facility] [facility] Culture, CSFon 07-01-2021 Bacteria identified Cx Nom (Unsp spec) NO GROWTH 3 DAYS [facility] Direct Exam NO NEUTROPHILS SEEN [facility] Direct Exam NO ORGANISMS SEEN [facility] Direct Exam Gram stain made from cytocentrifuged specimen. Organisms and cells will be concentrated. [facility] Specimen Description .CSF [facility] Hemoglobin and Hematocriton 07-01-2021 Hematocrit (Bld) [Volume fraction] 27.2 % Low 36.3 - 47.1 % [facility] Hemoglobin.gastrointest inal spec 1 Ql (Stl) 8.8 g/dL Low 11.9 - 15.1 g/dL [facility] Interpretation and review of laboratory results Abnormal [facility] Hematocrit (Bld) [Volume fraction] 26.7 % Low 36.3 - 47.1 % [facility] Hemoglobin.gastrointest inal spec 1 Ql (Stl) 8.6 g/dL Low 11.9 - 15.1 g/dL [facility] Interpretation and review of laboratory results Abnormal [facility] Lyme Disease AB, CSFon 07-01 B burgdorferi Ab,CSF 0.02 <=0.99 [facility] Magnesiumon 07-01-2021 Magnesium [Mass/Vol] 1.9 mg/dL 1.6 - 2 .6 mg/dL [facility] Magnesium [Mass/Vol] 2.0 mg/dL 1.6 - 2 .6 mg/dL [facility] Oligoclonal Bandson 07-02-19 22 CSF Isoelectric Focusing Interpretation See Note [facility] Oligo Bands Negative [facility] Oligoclonal Bands Number Matching [facility] POC Glucose Fingerstickon Glucose [Mass/Vol] 84 mg/dL 65 - 105 mg/dL [facility] Glucose [Mass/Vol] 104 mg/dL 65 - 105 mg/dL [facility] Glucose [Mass/Vol] 65 mg/dL 65 - 105 mg/dL [facility] Glucose [Mass/Vol] 107 mg/dL High 65 - 105 mg/dL [facility] Interpretation and review of laboratory results Abnormal [facility] Glucose [Mass/Vol] 115 mg/dL High 65 - 105 mg/dL [facility] Interpretation and review of laboratory results Abnormal [facility] Potassiumon 07-01-2021 Interpretation and review of laboratory results Abnormal [facility] Potassium [Moles/Vol] 2.5 mmol/L Critically low 3.7 - 5.3 mmol/L [facility] Interpretation and review of laboratory results Abnormal [facility] Potassium [Moles/Vol] 2.4 mmol/L Critically low 3.7 - 5.3 mmol/L [facility] Quantiferon TB Goldon 2021 QuantiFERON Mitogen 1.11 IU/mL [facility] QuantiFERON Nil 0.02 IU/mL [facility] Quantiferon TB Minus NIL Negative Negative [facility] Quantiferon TB1 Minus NIL 0.00 [facility] Quantiferon TB2 Minus NIL 0.00 [facility] West Nile Virus, CSFon 07-01 [place] IGG CSF 0.19 <=1.29 IV [facility] [place] IGM CSF 0 <=0.89 IV [facility] Culture, Blood 1on 2 Bacteria identified Cx Nom (Unsp spec) Positive Abnormal [facility] Bacteria identified Cx Nom (Unsp spec) DIRECT GRAM STAIN FROM BOTTLE: GRAM POSITIVE COCCI IN CLUSTERS [facility] Bacteria identified Cx Nom (Unsp spec) Staphylococcus aureus Detected: mecA/C and MREJ Not Detected [facility] Bacteria identified Cx Nom (Unsp spec) STAPHYLOCOCCUS AUREUS This isolate is methicillin susceptible. Abnormal [facility] Bacteria identified Cx Nom (Unsp spec) (NOTE) Direct Gram Stain from bottle and Polymerase Chain Reaction (PCR) results called to and read back by: Dino Casillas at 0248 on 06/29/2021. [facility] Special Requests RT FA 3 ML [facility] Specimen Description .BLOOD [facility] Culture, Blood 2on 2 Bacteria identified Cx Nom (Unsp spec) Positive Abnormal [facility] Bacteria identified Cx Nom (Unsp spec) DIRECT GRAM STAIN FROM BOTTLE: GRAM POSITIVE COCCI IN CLUSTERS [facility] Bacteria identified Cx Nom (Unsp spec) STAPHYLOCOCCUS AUREUS For susceptibility, refer to previous culture. Abnormal [facility] Bacteria identified Cx Nom (Unsp spec) (NOTE) Direct Gram Stain from bottle result called to and read back by: Dino Casillas at 0245 on 06/29/2021. [facility] Interpretation and review of laboratory results Abnormal [facility] Special Requests LEFT HAND 1 ML [facility] Specimen Description .BLOOD [facility] Hemoglobin and Hematocriton 06-30-2021 Hematocrit (Bld) [Volume fraction] 29.3 % Low 36.3 - 47.1 % [facility] Hemoglobin.gastrointest inal spec 1 Ql (Stl) 9.4 g/dL Low 11.9 - 15.1 g/dL [facility] Interpretation and review of laboratory results Abnormal [facility] POC Glucose Fingerstickon Glucose [Mass/Vol] 173 mg/dL High 65 - 105 mg/dL [facility] Interpretation and review of laboratory results Abnormal [facility] Glucose [Mass/Vol] 182 mg/dL High 65 - 105 mg/dL [facility] Interpretation and review of laboratory results Abnormal [facility] Glucose [Mass/Vol] 171 mg/dL High 65 - 105 mg/dL [facility] Interpretation and review of laboratory results Abnormal [facility] XR FOOT LEFT (MIN 3 VIEWS)on 06-30-2021 MHPN RIS CONSOLIDATED PN RIS CONSOLIDATED [facility] Work Phone: XR FOOT LEFT (MIN 3 VIEWS)Or dered By: Enedelia Garcia on 06-30-2021 [facility] [employer] Work Phone: Acetaminophen Levelon 2021 Acetaminophen Level <5 Low 10 - 30 ug/mL [facility] Ammoniaon 06-28-2021 Ammonia (P) [Moles/Vol] 12 umol/L 11 - 51 umol/L [facility] CBC with Auto Differentialon 06-28-2021 Absolute Bands # 0.43 [facility] alth Absolute Eos # [facility] Absolute Lymph # 1.51 [facility] Absolute [place] # 1.[address] [facility] Hea lth Bands 2 % 0 - 10 % [facility] Basophils (Bld) [#/Vol] 0 - 2 % M [facility] Basophils Absolute [facility] Eosinophils % 0 - 5 % [facility] Hematocrit (Bld) [Volume fraction] 30.9 % Low 36 - 46 % [facility] Hemoglobin.gastrointest inal spec 1 Ql (Stl) 10.1 g/dL Low 12.0 - 16.0 g/dL [facility] Interpretation and review of laboratory results Abnormal [facility] Lymphocytes/100 WBC (Bld) 7 % Low 15 - 40 % [facility] MCH (RBC) [Entitic mass] 26.2 pg 26 - 34 pg [facility] MCHC (RBC) [Mass/Vol] 32.6 g/dL 31 - 3 7 g/dL [facility] MCV (RBC) [Entitic vol] 80.5 fL 80 - 100 fL [facility] Monocytes/100 WBC (Bld) 5 % 4 - 8 % M [facility] Morphology Malachi (Bld) [Interp] Manual Differential Performed [facility] Platelet distribution width (Bld) [Ratio] 17.1 % High 12.1 - 15.2 % [facility] Platelets (Bld) [#/Vol] 537 10*3/uL High [facility] RBC (Bld) [#/Vol] 3.83 10*6/uL Low 4.0 - 5.2 m/uL [facility] Segmented neutrophils/100 WBC (Bld) 86 % High 47 - 75 % [facility] Segs Absolute 18.[address] [facility]alt h WBC (Bld) [#/Vol] 21.5 10*3/uL Critically high [facility] CKon 06-28-2021 CK [Catalytic activity/Vol] 63 U/L 26 - 192 U/L [facility] COVID-19, Rapidon 06-28-2021 SARS-CoV-2 (COVID-19) RNA CAL+probe Ql (Unsp spec) Not detected Not Detected [facility] Comment on above: Rapid NAAT: The specimen [...] management decisions. Fact sheet for Healthcare Providers: https://www.fda.gov/media/743896/download Fact sheet for Patients: https://www.fda.gov/media/583403/download Methodology: Isothermal Nucleic Acid Amplification Specimen Description .NASOPHARYNGEAL SWAB [facility] CT ABDOMEN PELVIS W IV CONTR AST Additional Contrast? Noneon 06-28-2021 1. No evidence of bowel obstruction. 2. Normal appendix. 3. Status post cholecystectomy. [facility] RIS CONSOLIDATED EXAMINATION: CT ABDOMEN PELVIS W [...] lesions. Laminectomy changes are noted at L4. [facility] Charly Mendoza MD - 06/28/2021 EXAMINATION: [...] 2. Normal appendix. 3. Status post cholecystectomy. [employer] Phone: Radiology Study observation (narrative) [employer] Work Phone: CT ABDOMEN PELVIS W IV CONTR AST Additional Contrast? NoneOrdered By: Charly Mendoza on 06-28-2021 [employer] Work Phone: CT Head WO Contraston 2021 1. Poorly diagnostic examination due to patient motion. 2. No gross evidence of hemorrhage or mass effect. A telephone call regarding the findings in examination and limitations the study was made to and acknowledged by Dr. Boothe in the emergency department at 4:55 AM on 06/28/2021. [facility] INDICATION: 56 years old; [...] evaluated in the present study. OTHER: None. [facility] Alek Kike - 06/28/2021 INDICATION: 56 years old; Female. [...] emergency department at 4:55 AM on 06/28/2021. [employer] Work Phone: Radiology Study observation (narrative) [employer] [facility] Work Phone: CT Head WO ContrastOrdered B y: Kike Maguire on 06-28-2021 [employer] Work Phone: Comprehensive Metabolic Pane l w/ Reflex to MGon 06-28-2021 Albumin [Mass/Vol] 4 g/dL 3.5 - 5.2 g/dL [employer] ALP (Bld) [Catalytic activity/Vol] 290 U/L High 35 - 104 U/L [employer] ALT [Catalytic activity/Vol] 25 U/L 5 - 33 U/L [employer] Anion gap [Moles/Vol] 16 mmol/L 9 - 17 mmol/L [employer] AST [Catalytic activity/Vol] 16 U/L <32 [employer] Bilirubin [Mass/Vol] 0.45 mg/dL 0.30 - 1.20 mg/dL [employer] Calcium [Mass/Vol] 9.9 mg/dL 8.6 - 10. 4 mg/dL [employer] Chloride [Moles/Vol] 95 mmol/L Low 98 - 10 7 mmol/L [employer] CO2 [Moles/Vol] 27 mmol/L 20 - 31 mmol/L [employer] Creatinine [Mass/Vol] 0.89 mg/dL 0.50 - 0.90 mg/dL [facility] Free PSA/Total PSA [Mass fraction] 8.5 g/dL High 6.4 - 8.3 g/dL [facility] GFR >60 >60 mL/min [facility] GFR Non- >60 >60 mL/min [facility] GFR/1.73 sq M.predicted MDRD (S/P/Bld) [Vol rate/Area] [facility] Comment on above: Average GFR for 50-5 9 years old: 93 mL/min/1.73sq m Chronic Kidney Disease: <60 mL/min/1.73sq m Kidney failure: <15 mL/min/1.73sq m eGFR calculated using average adult body mass. Additional eGFR calculator available at: http://www.[employer]/multiple_crcl_2011.htm Glucose [Mass/Vol] 268 mg/dL High 70 - 99 mg/dL [facility] Interpretation and review of laboratory results Abnormal [facility] Potassium [Moles/Vol] 3.4 mmol/L Low 3.7 - 5.3 mmol/L [facility] Sodium [Moles/Vol] 138 mmol/L 135 - 144 mmol/L [facility] Urea nitrogen (BldV) [Mass/Vol] 25 mg/dL High 6 - 20 mg/dL [facility] Urea nitrogen/Creatinine (Bld) [Mass ratio] 28 High [facility] Ethanolon 06-28-2021 Ethanol [Mass/Vol] mg/dL <10 mg/dL [facility] Ethanol percent <0.010 % [facility] Lactic Acidon 06-28-2021 Lactate [Moles/Vol] 1.6 mmol/L 0.5 - 2. 2 mmol/L [facility] Lipaseon 06-28-2021 Lipase [Catalytic activity/Vol] 30 U/L 13 - 60 U/L [facility] Magnesiumon 06-28-2021 Magnesium [Mass/Vol] 1.9 mg/dL 1.6 - 2 .6 mg/dL [facility] Microscopic Urinalysison - [facility] Epithelial Cells UA 0 TO 2 /HPF [facility] RBC, UA 5 TO 10 [facility] No Panel Informationon 06-28 Interpretation and review of laboratory results Abnormal [facility] Salicylateon 06-28-2021 Salicylate Lvl <1 Low 3 - 10 mg/dL [facility] Urinalysison 06-28-2021 Bilirubin Urine Negative NEGATIVE [facility] lt Color, UA Yellow Yellow [facility] Glucose, Ur 1000 mg/dL Abnormal NEGATIVE [facility] Interpretation and review of laboratory results Abnormal [facility] Ketones Ql (U) SMALL Abnormal NEGATIVE [facility] Leukocyte esterase Test strip Ql (U) Negative NEGATIVE [facility] Nitrite, Urine Negative NEGATIVE [facility] pH, UA 7.0 [facility] Protein, UA 2+ Abnormal NEGATIVE [facility] Specific [place], UA 1.010 [facility] Turbidity UA Hazy Abnormal Clear [facility] Urinalysis Comments [facility] Urine Hgb 1+ Abnormal NEGATIVE [facility] Urobilinogen, Urine Normal Normal [facility] Urine Drug Screenon 06-29-19 Amphetamine Screen, Ur Negative NEGATIVE [facility] Comment on above: (Positive cutoff 500 ng/mL) Barbiturate Screen, Ur Negative [facility]GATIVE [facility] Comment on above: (Positive cutoff 200 ng/mL) Benzodiazepine Screen, Urine Negative NEGATIVE [facility] Comment on above: (Positive cutoff 150 ng/mL) Cannabinoid Scrn, Ur Negative NEGATIVE [facility] Comment on above: (Positive cutoff 50 ng/mL) Cocaine Metabolite, Urine Negative NEGATIVE [facility] Comment on above: (Positive cutoff 150 ng/mL) Interpretation and review of laboratory results Abnormal [facility] Methadone Screen, Urine Negative [facility] Comment on above: (Positive cutoff 200 ng/mL) Methamphetamine, Urine Negative [facility]GATIVE [facility] Comment on above: (Positive cutoff 500 ng/mL) Opiates, Urine Positive Abnormal NEGATIVE [facility] Comment on above: (Positive cutoff 100 ng/mL) Oxycodone Screen, Ur Negative NEGATIVE [facility] Comment on above: (Positive cutoff 100 ng/mL) Phencyclidine, Urine Negative NEGATIVE [facility] Comment on above: (Positive cutoff 25 ng/mL) Propoxyphene, Urine Negative NEGATIVE [facility] Comment on above: (Positive cutoff 300 ng/mL) Tricyclic Antidepressants, Urine Negative NEGATIVE [facility] Comment on above: (Positive cutoff 300 ng/mL) Drug screen results are to be used for medical purposes only. All positive results are unconfirmed. Testing for employment or legal uses should be sent to a reference laboratory for confirmation. [employer] XR CHEST PORTABLEon 06-29-19 22 No acute abnormality. [facility] RIS CONSOLIDATED CLINICAL HISTORY: altered mental status COMPARISON: none FINDINGS: Portable AP view of the chest obtained. Cardiomediastinal silhouette is normal. Lungs are clear, no evidence of infiltrate, suspicious nodule, or mass. No evidence of significant pleural fluid on this portable projection. No acute bony abnormality. [facility] Leonardo Lopes M D - 06/28/2021 CLINICAL HISTORY: altered mental status COMPARISON: none FINDINGS: Portable AP view of the chest obtained. Cardiomediastinal silhouette is normal. Lungs are clear, no evidence of infiltrate, suspicious nodule, or mass. No evidence of significant pleural fluid on this portable projection. No acute bony abnormality. IMPRESSION: No acute abnormality. [employer] Work Phone: Radiology Study observation (narrative) [employer] [facility] Work Phone: XR CHEST PORTABLEOrdered By: Leonardo Lopes on 06-28-2021 [employer] Work Phone: COVID-19, MOLECULARon 2021 SARS-CoV-2 (COVID-19) RNA CAL+probe Ql (Unsp spec) Not detected Normal Not Detected [facility] Comment on above: Order Comment: This [...] at the following links: For Healthcare Providers: https://www.fda.gov/media/163825/download For Patients: https://www.fda.gov/media/229572/download Performed By: #### L [id number] #### [place] [address] Skylar Niño M.D. [id number] MR FOOT LEFT WITHOUT CONTRAS Ton 05-21-2021 [...] on FriMay 22, 2021 7:54:35 AM EDT [facility] Comment on above: Order Comment: Injur [...] ID: [id number] Dictated by: LUIS POLANCO on [place] May 20, 2021 4:40:24 PM EDT Transcribed by: LUIS POLANCO on [place] May 20, 2021 4:40:24 PM EDT Finalized by: LUIS POLANCO on [place] May 20, 2021 4:40:24 PM EDT [facility] Comment on above: Order Comment: Injur [...] patent on the right. SCA patent bilaterally. JUVENILE COUNSELOR patent bilaterally. Basilar artery and basilar tip [...] AM EDT Finalized by: KIKE MAGUIRE on [facility] May 19, 2021 3:53:28 AM EDT [facility] Comment on above: Order Comment: Injur [...] ID: [id number] Dictated by: JEAN ANDERSON on [facility] May 19, 2021 10:41:14 PM EDT Transcribed by: JEAN ANDERSON on [facility] May 19, 2021 10:41:14 PM EDT Finalized by: JEAN ANDERSON on [facility] May 19, 2021 10:41:14 PM EDT [facility] Comment on above: Order Comment: Injur [...] ID: [id number] Dictated by: Pili FONTAINE on [place] May 20, 2021 8:14:06 AM EDT Transcribed by: JANY FORBES on [place] May 20, 2021 8:50:25 AM EDT Finalized by: Pili FONTAINE on [place] May 20, 2021 2:03:56 PM EDT Normal [facility] Comment on above: Order Comment: Injur [...] PM EDT Transcribed by: JOS FREDERICK on Sat May 19, 2021 6:07:29 PM EDT Finalized by: JOS FREDERICK on Sat May 19, 2021 6:07:29 PM EDT Normal [facility] Comment on above: Order Comment: Injur [...] performed using the Xpert Xpress SARS-CoV-2 RT-PCR [employer] assay on the [employer] platform. This test has not been approved for use in asymptomatic patients and its performance in this patient population has not been evaluated. Negative results do not rule out the presence of SARS-CoV-2/COVID-19. Fact sheets for this EUA can be found at the following links: For Healthcare Providers: https://www.fda.gov/media/107650/download For Patients: https://www.fda.gov/media/953273/download Performed By: #### L [id number] #### SH [address] [address] Skylar Niño M.D. [id number] CT CERVICAL SPINE WITHOUT CO NTRASTon 05-18-2021 [...] to severe right facet arthropathy at C5-C6. Qnln-ln-pzdotupl stenosis of the right C5-C6 neural foramen [...] the cervical spine without central spinal stenosis. Gvhy-ha-ptiffwjr stenosis the right C5-C6 neural foramen secondary to mild uncovertebral hypertrophy and moderate to severe right facet hypertrophy. Workstation ID: [id number] Dictated by: ALBERT MARIA on FriMay 18, 2021 5:23:47 PM EDT Transcribed by: ALBERT MARIA on FriMay 18, 2021 5:23:47 PM EDT Finalized by: ALBERT MARIA on FriMay 18, 2021 5:23:47 PM EDT Normal [facility] Comment on above: Order Comment: Injur y/Trauma [...] superior forming alt MD: -7.89 (-5.69) Normal [facility] BUN CREAon 05-11-2021 Creatinine [Mass/Vol] 1.38 mg/dL High 0.50 - 1.20 mg/dL [facility] GFR/1.73 sq M.predicted CKD-EPI (S/P/Bld) [Vol rate/Area] 44 Low >=60 mL/min/1.73 m2 [facility] Comment on above: Reported eGFR is bas ed on the CKD-EPI 2020 equation using creatinine, age, and sex. Interpretation and review of laboratory results Abnormal [facility] Urea nitrogen [Mass/Vol] 27 mg/dL High 7 - 25 mg/dL [facility] Urea nitrogen/Creatinine [Mass ratio] 20 mg/mg [facility] Creatinine [Mass/Vol] 1.38 mg/dL High 0.50-1.20 [facility] Comment on above: Order Comment: Prior to first [facility] and every 2 weeks if baseline CR is within normal limits. Performed By: #### B CR #### [facility] (DEFAULT) [address] [place] [address] GFR/1.73 sq M.predicted among non-blacks MDRD (S/P/Bld) [Vol rate/Area] 44 mL/min/{1.73_m2} Low >=60 [facility] Comment on above: Order Comment: Prior to first [facility] and every 2 weeks if baseline CR is within normal limits. Result Comment: Repo rted eGFR is based on the CKD-EPI 2020 equation using creatinine, age, and sex. Performed By: #### B CR #### [facility] (DEFAULT) [address] [place] [address] Urea nitrogen [Mass/Vol] 27 mg/dL High 09-10 [facility] Comment on above: Order Comment: Prior to first [facility] and every 2 weeks if baseline CR is within normal limits. Performed By: #### B CR #### [facility] (DEFAULT) [address] [place] [address] Urea nitrogen/Creatinine [Mass ratio] 20 mg/mg Normal [facility] Comment on above: Order Comment: Prior to first [facility] and every 2 weeks if baseline CR is within normal limits. Performed By: #### B CR #### [facility] (DEFAULT) [address] [place] [address] CBC AND ELECTRONIC DIFFon Basophils (Bld) [#/Vol] 10*3/uL 0.00 - 0.15 K/uL [facility] Basophils/100 WBC (Bld) 0.2 % [facility] DIFF STATUS Electronic Differential [facility] Eosinophils (Bld) [#/Vol] 0.16 10*3/uL 0.00 - 0.42 K/uL [facility] Eosinophils/100 WBC (Bld) 1.9 % [facility] Erythrocyte distribution width (RBC) [Ratio] 15.4 % High 10.8 - 14.9 % [facility] Hematocrit (Bld) [Volume fraction] 36.1 % 34.9 - 44.3 % [facility] Hemoglobin (Bld) [Mass/Vol] 11.7 g/dL 11.4 - 15.2 g/dL [facility] Immature granulocytes (Bld) [#/Vol] 10*3/uL <=0.09 K/uL [facility] Immature granulocytes/100 WBC (Bld) 0.2 % [facility] Interpretation and review of laboratory results Abnormal [facility] Lymphocytes (Bld) [#/Vol] 2.68 10*3/uL 1.16 - 3.51 K/uL [facility] Lymphocytes/100 WBC (Bld) 32.0 % [facility] MCH (RBC) [Entitic mass] 27.6 pg 25.9 - 33.9 pg [facility] MCHC (RBC) [Mass/Vol] 32.4 g/dL 31.4 - 35.9 g/dL [facility] MCV (RBC) [Entitic vol] 85.1 fL 79.6 - 97.7 fL [facility] Monocytes (Bld) [#/Vol] 0.37 10*3/uL 0.22 - 0.87 K/uL [facility] Monocytes/100 WBC (Bld) 4.4 % [facility] Neutrophils (Bld) [#/Vol] 5.13 10*3/uL 1.64 - 7.28 K/uL [facility] Nucleated RBC/100 WBC (Bld) [Ratio] 0.0 % <=0.2 /100 WBC [facility] Platelet mean volume (Bld) [Entitic vol] 9.8 fL 8.5 - 12.2 fL [facility] Platelets (Bld) [#/Vol] 338 10*3/uL 150 - 393 K/uL [facility] RBC (Bld) [#/Vol] 4.24 10*6/uL [facility] Segmented neutrophils/100 WBC (Bld) 61.3 % [facility] WBC (Bld) [#/Vol] 8.38 10*3/uL 3.99 - 11.19 K/uL [facility] Basophils (Bld) [#/Vol] 10*3/uL Normal 0.00-0.15 O [facility] Comment on above: Order Comment: Prior to first [facility]fusion and then every 2 weeks.until results within normal limits. Collect weekly if baseline is abnormal. Performed By: #### L [id number] #### [facility] (DEFAULT) [address] [address] Basophils/100 WBC (Bld) 0.2 % Normal O [facility] Comment on above: Order Comment: Prior to first [facility] In[facility] and then every 2 weeks.until results within normal limits. Collect weekly if baseline is abnormal. Performed By: #### L [id number] #### [facility] (DEFAULT) [address] [address] DIFF STATUS Electronic Differential Normal [facility] Comment on above: Order Comment: Prior to first [facility] Infusion and then every 2 weeks.until results within normal limits. Collect weekly if baseline is abnormal. Performed By: #### L [id number] #### [facility] (DEFAULT) [address] [address] Eosinophils (Bld) [#/Vol] 0.16 10*3/uL Normal 0.00-0.42 [facility] Comment on above: Order Comment: Prior to first [facility] Infusion and then every 2 weeks.until results within normal limits. Collect weekly if baseline is abnormal. Performed By: #### L [id number] #### [facility] (DEFAULT) [address] [address] Eosinophils/100 WBC (Bld) 1.9 % Normal [facility] Comment on above: Order Comment: Prior to first [facility] Infusion and then every 2 weeks.until results within normal limits. Collect weekly if baseline is abnormal. Performed By: #### L [id number] #### [facility] (DEFAULT) [address] [address] Hematocrit (Bld) [Volume fraction] 36.1 % Normal 34.9-44.3 [facility] Comment on above: Order Comment: Prior to first [facility] Infusion and then every 2 weeks.until results within normal limits. Collect weekly if baseline is abnormal. Performed By: #### L [id number] #### [facility] (DEFAULT) [address] [address] Hemoglobin (Bld) [Mass/Vol] 11.7 g/dL Normal 11.4-15.2 [facility] Comment on above: Order Comment: Prior to first [facility] Infusion and then every 2 weeks.until results within normal limits. Collect weekly if baseline is abnormal. Performed By: #### L [id number] #### [facility] (DEFAULT) [address] [address] Immature Grans % 0.2 % Normal [facility] Comment on above: Order Comment: Prior to first [facility] Infusion and then every 2 weeks.until results within normal limits. Collect weekly if baseline is abnormal. Performed By: #### L [id number] #### [facility] (DEFAULT) [address] [address] Immature Grans Absolute <0.04 Normal <=0.09 O [facility] Comment on above: Order Comment: Prior to first [facility] Infusion and then every 2 weeks.until results within normal limits. Collect weekly if baseline is abnormal. Performed By: #### L [id number] #### [facility] (DEFAULT) [address] [address] Lymphocytes (Bld) [#/Vol] 2.68 10*3/uL Normal 1.16-3.51 [facility] Comment on above: Order Comment: Prior to first [facility] Infusion and then every 2 weeks.until results within normal limits. Collect weekly if baseline is abnormal. Performed By: #### L [id number] #### [facility] (DEFAULT) [address] [address] Lymphocytes/100 WBC (Bld) 32.0 % Normal [facility] Comment on above: Order Comment: Prior to first [facility] Infusion and then every 2 weeks.until results within normal limits. Collect weekly if baseline is abnormal. Performed By: #### L [id number] #### [facility] (DEFAULT) [address] [address] MCV (RBC) [Entitic vol] 85.1 fL Normal 79.6-97.7 O [facility] Comment on above: Order Comment: Prior to first [facility] Infusion and then every 2 weeks.until results within normal limits. Collect weekly if baseline is abnormal. Performed By: #### L [id number] #### [facility] (DEFAULT) [address] [address] Mean Cell Hgb 27.6 pg Normal 25.9-33.9 [facility] Comment on above: Order Comment: Prior to first [facility] Infusion and then every 2 weeks.until results within normal limits. Collect weekly if baseline is abnormal. Performed By: #### L [id number] #### [facility] (DEFAULT) [address] [address] Mean Cell Hgb Conc 32.4 g/dL Normal 31.4-35.9 [facility] Comment on above: Order Comment: Prior to first [facility] Infusion and then every 2 weeks.until results within normal limits. Collect weekly if baseline is abnormal. Performed By: #### L [id number] #### [facility] (DEFAULT) [address] [address] Monocytes (Bld) [#/Vol] 0.37 10*3/uL Normal 0.22-0.87 [facility] Comment on above: Order Comment: Prior to first [facility] Infusion and then every 2 weeks.until results within normal limits. Collect weekly if baseline is abnormal. Performed By: #### L [id number] #### [facility] (DEFAULT) [address] [address] Monocytes/100 WBC (Bld) 4.4 % Normal [facility] Comment on above: Order Comment: Prior to first [facility] Infusion and then every 2 weeks.until results within normal limits. Collect weekly if baseline is abnormal. Performed By: #### L [id number] #### [facility] (DEFAULT) [address] [address] Nucleated RBC 0.0 /100 WBC Normal <=0.2 [facility] Comment on above: Order Comment: Prior to first [facility] Infusion and then every 2 weeks.until results within normal limits. Collect weekly if baseline is abnormal. Performed By: #### L [id number] #### [facility] (DEFAULT) [address] [address] Platelet mean volume (Bld) [Entitic vol] 9.8 fL Normal 8.5-12.2 [facility] Comment on above: Order Comment: Prior to first [facility] Infusion and then every 2 weeks.until results within normal limits. Collect weekly if baseline is abnormal. Performed By: #### L [id number] #### [facility] (DEFAULT) [address] [address] Platelets (Bld) [#/Vol] 338 10*3/uL Normal 150-393 [facility] Comment on above: Order Comment: Prior to first [facility] Infusion and then every 2 weeks.until results within normal limits. Collect weekly if baseline is abnormal. Performed By: #### L [id number] #### [facility] (DEFAULT) [address] [address] RBC (Bld) [#/Vol] 4.24 10*6/uL Normal 3.91-5.04 [facility] Comment on above: Order Comment: Prior to first [facility] Infusion and then every 2 weeks.until results within normal limits. Collect weekly if baseline is abnormal. Performed By: #### L [id number] #### [facility] (DEFAULT) [address] [address] RBC Distribution 15.4 % High 10.8-14.9 [facility] Comment on above: Order Comment: Prior to first [facility] Infusion and then every 2 weeks.until results within normal limits. Collect weekly if baseline is abnormal. Performed By: #### L [id number] #### [facility] (DEFAULT) [address] [address] Segs + Bands Auto 61.3 % Normal [place] [facility] Comment on above: Order Comment: Prior to first [facility] Infusion and then every 2 weeks.until results within normal limits. Collect weekly if baseline is abnormal. Performed By: #### L [id number] #### [facility] (DEFAULT) [address] [address] Segs + Bands,Absolute Auto 5.13 K/uL Normal 1.64-7.28 [facility] Comment on above: Order Comment: Prior to first [facility] Infusion and then every 2 weeks.until results within normal limits. Collect weekly if baseline is abnormal. Performed By: #### L [id number] #### [facility] (DEFAULT) [address] [address] WBC (Bld) [#/Vol] 8.38 10*3/uL Normal 3.99-11.19 [facility] Comment on above: Order Comment: Prior to first [facility] Infusion and then every 2 weeks.until results within normal limits. Collect weekly if baseline is abnormal. Performed By: #### L [id number] #### [facility] (DEFAULT) [address] [address] BUN CREAon 04-25-2021 Creatinine [Mass/Vol] 1.29 mg/dL High 0.50-1.20 [facility] Comment on above: Order Comment: Prior to first [facility] Infusion and every 2 weeks if baseline CR is within normal limits. Performed By: #### B CR #### [facility] (DEFAULT) [address] [address] GFR/1.73 sq M.predicted among non-blacks MDRD (S/P/Bld) [Vol rate/Area] 48 mL/min/{1.73_m2} Low >=60 [facility] Comment on above: Order Comment: Prior to first [facility] Infusion and every 2 weeks if baseline CR is within normal limits. Result Comment: Repo rted eGFR is based on the CKD-EPI 2020 equation using creatinine, age, and sex. Performed By: #### B CR #### [facility] (DEFAULT) [address] [address] Urea nitrogen [Mass/Vol] 27 mg/dL High 7-25 [facility] Comment on above: Order Comment: Prior to first [facility] Infusion and every 2 weeks if baseline CR is within normal limits. Performed By: #### B CR #### [facility] (DEFAULT) [address] [address] Urea nitrogen/Creatinine [Mass ratio] 21 mg/mg Normal [facility] Comment on above: Order Comment: Prior to first [facility] Infusion and every 2 weeks if baseline CR is within normal limits. Performed By: #### B CR #### [facility] (DEFAULT) [address] [address] CBC AND ELECTRONIC DIFFon Basophils (Bld) [#/Vol] 0.05 10*3/uL Normal 0.00-0.15 [facility] Comment on above: Order Comment: Prior to first [facility] Infusion and then every 2 weeks.until results within normal limits. Collect weekly if baseline is abnormal. Performed By: #### L [id number] #### [facility] (DEFAULT) [address] [address] Basophils/100 WBC (Bld) 0.6 % Normal O [facility] Comment on above: Order Comment: Prior to first [facility] Infusion and then every 2 weeks.until results within normal limits. Collect weekly if baseline is abnormal. Performed By: #### L [id number] #### [facility] (DEFAULT) [address] [address] DIFF STATUS Electronic Differential Normal [facility] Comment on above: Order Comment: Prior to first [facility] Infusion and then every 2 weeks.until results within normal limits. Collect weekly if baseline is abnormal. Performed By: #### L [id number] #### [facility] (DEFAULT) [address] [address] Eosinophils (Bld) [#/Vol] 0.23 10*3/uL Normal 0.00-0.42 [facility] Comment on above: Order Comment: Prior to first [facility] Infusion and then every 2 weeks.until results within normal limits. Collect weekly if baseline is abnormal. Performed By: #### L [id number] #### [facility] (DEFAULT) [address] [address] Eosinophils/100 WBC (Bld) 2.6 % Normal [facility] Comment on above: Order Comment: Prior to first [facility] Infusion and then every 2 weeks.until results within normal limits. Collect weekly if baseline is abnormal. Performed By: #### L [id number] #### [facility] (DEFAULT) [address] [address] Hematocrit (Bld) [Volume fraction] 34.0 % Low 34.9-44.3 [facility] Comment on above: Order Comment: Prior to first [facility] Infusion and then every 2 weeks.until results within normal limits. Collect weekly if baseline is abnormal. Performed By: #### L [id number] #### [facility] (DEFAULT) [address] [address] Hemoglobin (Bld) [Mass/Vol] 10.7 g/dL Low 11.4-15.2 [facility] Comment on above: Order Comment: Prior to first [facility] Infusion and then every 2 weeks.until results within normal limits. Collect weekly if baseline is abnormal. Performed By: #### L [id number] #### [facility] (DEFAULT) [address] [address] Immature Grans % 0.2 % Normal [facility] Comment on above: Order Comment: Prior to first [facility] Infusion and then every 2 weeks.until results within normal limits. Collect weekly if baseline is abnormal. Performed By: #### L [id number] #### [facility] (DEFAULT) [address] [address] Immature Grans Absolute <0.04 Normal <=0.09 O [facility] Comment on above: Order Comment: Prior to first [facility] Infusion and then every 2 weeks.until results within normal limits. Collect weekly if baseline is abnormal. Performed By: #### L [id number] #### [facility] (DEFAULT) [address] [address] Lymphocytes (Bld) [#/Vol] 2.20 10*3/uL Normal 1.16-3.51 [facility] Comment on above: Order Comment: Prior to first [facility] Infusion and then every 2 weeks.until results within normal limits. Collect weekly if baseline is abnormal. Performed By: #### L [id number] #### [facility] (DEFAULT) [address] [address] Lymphocytes/100 WBC (Bld) 24.5 % Normal [facility] Comment on above: Order Comment: Prior to first [facility] Infusion and then every 2 weeks.until results within normal limits. Collect weekly if baseline is abnormal. Performed By: #### L [id number] #### [facility] (DEFAULT) [address] [address] MCV (RBC) [Entitic vol] 85.4 fL Normal 79.6-97.7 [facility] Comment on above: Order Comment: Prior to first [facility] Infusion and then every 2 weeks.until results within normal limits. Collect weekly if baseline is abnormal. Performed By: #### L [id number] #### [facility] (DEFAULT) [address] [address] Mean Cell Hgb 26.9 pg Normal 25.9-33.9 [facility] Comment on above: Order Comment: Prior to first [facility] Infusion and then every 2 weeks.until results within normal limits. Collect weekly if baseline is abnormal. Performed By: #### L [id number] #### [facility] (DEFAULT) [address] [address] Mean Cell Hgb Conc 31.5 g/dL Normal 31.4-35.9 [facility] Comment on above: Order Comment: Prior to first [facility] Infusion and then every 2 weeks.until results within normal limits. Collect weekly if baseline is abnormal. Performed By: #### L [id number] #### [facility] (DEFAULT) [address] [address] Monocytes (Bld) [#/Vol] 0.41 10*3/uL Normal 0.22-0.87 [facility] Comment on above: Order Comment: Prior to first [facility] Infusion and then every 2 weeks.until results within normal limits. Collect weekly if baseline is abnormal. Performed By: #### L [id number] #### [facility] (DEFAULT) [address] [address] Monocytes/100 WBC (Bld) 4.6 % Normal O [facility] Comment on above: Order Comment: Prior to first [facility] Infusion and then every 2 weeks.until results within normal limits. Collect weekly if baseline is abnormal. Performed By: #### L [id number] #### [facility] (DEFAULT) [address] [address] Nucleated RBC 0.0 /100 WBC Normal <=0.2 [facility] Comment on above: Order Comment: Prior to first [facility] Infusion and then every 2 weeks.until results within normal limits. Collect weekly if baseline is abnormal. Performed By: #### L [id number] #### [facility] (DEFAULT) [address] [address] Platelet mean volume (Bld) [Entitic vol] 9.8 fL Normal 8.5-12.2 [facility] Comment on above: Order Comment: Prior to first [facility] Infusion and then every 2 weeks.until results within normal limits. Collect weekly if baseline is abnormal. Performed By: #### L [id number] #### [facility] (DEFAULT) [address] [address] Platelets (Bld) [#/Vol] 389 10*3/uL Normal 150-393 [facility] Comment on above: Order Comment: Prior to first [facility] Infusion and then every 2 weeks.until results within normal limits. Collect weekly if baseline is abnormal. Performed By: #### L [id number] #### [facility] (DEFAULT) [address] [address] RBC (Bld) [#/Vol] 3.98 10*6/uL Normal 3.91-5.04 [facility] Comment on above: Order Comment: Prior to first [facility] Infusion and then every 2 weeks.until results within normal limits. Collect weekly if baseline is abnormal. Performed By: #### L [id number] #### [facility] (DEFAULT) [address] [address] RBC Distribution 14.8 % Normal 10.8-14.9 [facility] Comment on above: Order Comment: Prior to first [facility] Infusion and then every 2 weeks.until results within normal limits. Collect weekly if baseline is abnormal. Performed By: #### L [id number] #### [facility] (DEFAULT) [address] [address] Segs + Bands Auto 67.5 % Normal [place] [facility] Comment on above: Order Comment: Prior to first [facility] Infusion and then every 2 weeks.until results within normal limits. Collect weekly if baseline is abnormal. Performed By: #### L [id number] #### [facility] (DEFAULT) [address] [address] Segs + Bands,Absolute Auto 6.07 K/uL Normal 1.64-7.28 [facility] Comment on above: Order Comment: Prior to first [employer] and then every 2 weeks.until results within normal limits. Collect weekly if baseline is abnormal. Performed By: #### L [id number] #### [facility] (DEFAULT) [address] [address] WBC (Bld) [#/Vol] 8.98 10*3/uL Normal 3.99-11.19 [facility] Comment on above: Order Comment: Prior to first [employer] Infusion and then every 2 weeks.until results within normal limits. Collect weekly if baseline is abnormal. Performed By: #### L [id number] #### [facility] (DEFAULT) [address] [address] CBC AND ELECTRONIC DIFFon Basophils (Bld) [#/Vol] 10*3/uL Normal 0.00-0.15 O [facility] Comment on above: Order Comment: Prior to first [employer] Infusion and then every 2 weeks.until results within normal limits. Collect weekly if baseline is abnormal. Performed By: #### L [id number] #### [facility] (DEFAULT) [address] [address] Basophils/100 WBC (Bld) 0.3 % Normal O [facility] Comment on above: Order Comment: Prior to first [employer] Infusion and then every 2 weeks.until results within normal limits. Collect weekly if baseline is abnormal. Performed By: #### L [id number] #### [facility] (DEFAULT) [address] [address] DIFF STATUS Electronic Differential Normal [facility] Comment on above: Order Comment: Prior to first [employer] Infusion and then every 2 weeks.until results within normal limits. Collect weekly if baseline is abnormal. Performed By: #### L [id number] #### [facility] (DEFAULT) [address] [address] Eosinophils (Bld) [#/Vol] 0.24 10*3/uL Normal 0.00-0.42 [facility] Comment on above: Order Comment: Prior to first [employer] Infusion and then every 2 weeks.until results within normal limits. Collect weekly if baseline is abnormal. Performed By: #### L [id number] #### [facility] (DEFAULT) [address] [address] Eosinophils/100 WBC (Bld) 2.4 % Normal [facility] Comment on above: Order Comment: Prior to first [employer] Infusion and then every 2 weeks.until results within normal limits. Collect weekly if baseline is abnormal. Performed By: #### L [id number] #### [facility] (DEFAULT) [address] [address] Hematocrit (Bld) [Volume fraction] 33.4 % Low 34.9-44.3 [facility] Comment on above: Order Comment: Prior to first [employer] Infusion and then every 2 weeks.until results within normal limits. Collect weekly if baseline is abnormal. Performed By: #### L AB980 #### [facility] (DEFAULT) [address] [address] Hemoglobin (Bld) [Mass/Vol] 10.3 g/dL Low 11.4-15.2 [facility] Comment on above: Order Comment: Prior to first [employer] Infusion and then every 2 weeks.until results within normal limits. Collect weekly if baseline is abnormal. Performed By: #### L AB980 #### [facility] (DEFAULT) [address] [address] Immature Grans % 0.2 % Normal [facility] Comment on above: Order Comment: Prior to first [employer] Infusion and then every 2 weeks.until results within normal limits. Collect weekly if baseline is abnormal. Performed By: #### L [id number] #### [facility] (DEFAULT) [address] [address] Immature Grans Absolute <0.04 Normal <=0.09 O [facility] Comment on above: Order Comment: Prior to first [employer] Infusion and then every 2 weeks.until results within normal limits. Collect weekly if baseline is abnormal. Performed By: #### L [id number] #### [facility] (DEFAULT) [address] [address] Lymphocytes (Bld) [#/Vol] 2.87 10*3/uL Normal 1.16-3.51 [facility] Comment on above: Order Comment: Prior to first [employer] Infusion and then every 2 weeks.until results within normal limits. Collect weekly if baseline is abnormal. Performed By: #### L AB980 #### [facility] (DEFAULT) [address] [address] Lymphocytes/100 WBC (Bld) 29.1 % Normal [facility] Comment on above: Order Comment: Prior to first [employer] Infusion and then every 2 weeks.until results within normal limits. Collect weekly if baseline is abnormal. Performed By: #### L [id number] #### [facility] (DEFAULT) [address] [address] MCV (RBC) [Entitic vol] 85.2 fL Normal 79.6-97.7 O [facility] Comment on above: Order Comment: Prior to first [employer] Infusion and then every 2 weeks.until results within normal limits. Collect weekly if baseline is abnormal. Performed By: #### L [id number] #### [facility] (DEFAULT) [address] [address] Mean Cell Hgb 26.3 pg Normal 25.9-33.9 [facility] Comment on above: Order Comment: Prior to first [employer] Infusion and then every 2 weeks.until results within normal limits. Collect weekly if baseline is abnormal. Performed By: #### L [id number] #### [facility] (DEFAULT) [address] [address] Mean Cell Hgb Conc 30.8 g/dL Low 31.4-35.9 [facility] Comment on above: Order Comment: Prior to first [employer] Infusion and then every 2 weeks.until results within normal limits. Collect weekly if baseline is abnormal. Performed By: #### L [id number] #### [facility] (DEFAULT) [address] [place] [address] Monocytes (Bld) [#/Vol] 0.37 10*3/uL Normal 0.22-0.87 [facility] Comment on above: Order Comment: Prior to first [employer] Infusion and then every 2 weeks.until results within normal limits. Collect weekly if baseline is abnormal. Performed By: #### L [id number] #### [facility] (DEFAULT) [address] [address] Monocytes/100 WBC (Bld) 3.7 % Normal O [facility] Comment on above: Order Comment: Prior to first [employer] Infusion and then every 2 weeks.until results within normal limits. Collect weekly if baseline is abnormal. Performed By: #### L [id number] #### [facility] (DEFAULT) [address] [address] Nucleated RBC 0.0 /100 WBC Normal <=0.2 [facility] Comment on above: Order Comment: Prior to first [employer] Infusion and then every 2 weeks.until results within normal limits. Collect weekly if baseline is abnormal. Performed By: #### L [id number] #### [facility] (DEFAULT) [address] [address] Platelet mean volume (Bld) [Entitic vol] 9.9 fL Normal 8.5-12.2 [facility] Comment on above: Order Comment: Prior to first [employer] Infusion and then every 2 weeks.until results within normal limits. Collect weekly if baseline is abnormal. Performed By: #### L [id number] #### [facility] (DEFAULT) [address] [address] Platelets (Bld) [#/Vol] 346 10*3/uL Normal 150-393 [facility] Comment on above: Order Comment: Prior to first [employer] Infusion and then every 2 weeks.until results within normal limits. Collect weekly if baseline is abnormal. Performed By: #### L [id number] #### [facility] (DEFAULT) [address] [address] RBC (Bld) [#/Vol] 3.92 10*6/uL Normal 3.91-5.04 [facility] Comment on above: Order Comment: Prior to first [employer] Infusion and then every 2 weeks.until results within normal limits. Collect weekly if baseline is abnormal. Performed By: #### L [id number] #### [facility] (DEFAULT) [address] [address] RBC Distribution 15.1 % High 10.8-14.9 [facility] Comment on above: Order Comment: Prior to first [employer] Infusion and then every 2 weeks.until results within normal limits. Collect weekly if baseline is abnormal. Performed By: #### L [id number] #### [facility] (DEFAULT) [address] [address] Segs + Bands Auto 64.3 % Normal [facility] Comment on above: Order Comment: Prior to first [employer] Infusion and then every 2 weeks.until results within normal limits. Collect weekly if baseline is abnormal. Performed By: #### L [id number] #### [facility] (DEFAULT) [address] [address] Segs + Bands,Absolute Auto 6.34 K/uL Normal 1.64-7.28 [facility] Comment on above: Order Comment: Prior to first [employer] Infusion and then every 2 weeks.until results within normal limits. Collect weekly if baseline is abnormal. Performed By: #### L [id number] #### [facility] (DEFAULT) [address] [address] WBC (Bld) [#/Vol] 9.87 10*3/uL Normal 3.99-11.19 [facility] Comment on above: Order Comment: Prior to first [employer] Infusion and then every 2 weeks.until results within normal limits. Collect weekly if baseline is abnormal. Performed By: #### L [id number] #### [facility] (DEFAULT) [address] [address] Comprehensive metabolic 2000 panelon 04-06-2021 High Sensitivity Troponin I 9 ng/L Normal <14 [facility] Comment on above: Performed By: #### 2 4321-2 #### [facility] [address] [place] [address] Glucose Auto test strip (Bld ) [Mass/Vol]on 04-06-2021 Glucose [Mass/Vol] 219 mg/dL High 70-99 [facility] Comment on above: Performed By: #### 2 4321-2 #### [facility]) [facility] [address] [place] [address] Glucose [Mass/Vol] 245 mg/dL High 70-99 [facility] Comment on above: Performed By: #### 2 4321-2 #### [facility] ([facility]) [facility] [address] [place] [address] Glucose [Mass/Vol] 176 mg/dL High 70-99 [facility] Comment on above: Performed By: #### 2 4321-2 #### [facility] [address] [place] [address] Glucose [Mass/Vol] 217 mg/dL High 70-99 [facility] Comment on above: Performed By: #### 2 340-8 #### [facility] [address] [place] [address] HbA1c HPLC (Bld) [Mass fract ion]on 04-06-2021 HbA1c (Bld) [Mass fraction] 11.8 % High <=5.6 [facility] Comment on above: Result Comment: HbA1 c values of 5.7-6.4 percent indicate an increased risk for developing diabetes mellitus. HbA1c values greater than or equal to 6.5 percent are diagnostic of diabetes mellitus. For diagnosis of diabetes in individuals without unequivocal hyperglycemia, results should be confirmed by repeat testing. Performed By: #### 2 4321-2 #### [facility] [address] [place] [address] Mean Bld Glu Estim. 292 mg/dL Normal [facility] Comment on above: Performed By: #### 2 4321-2 #### [facility] [address] [place] [address] Hemogram and platelets WO di fferential panel (Bld)on 04-06-2021 Basophils (Bld) [#/Vol] 0.00 10*3/uL Normal 0.00-0.20 [facility] Comment on above: Performed By: #### 2 4317-0 #### [facility] [address] [place] [address] Basophils/100 WBC (Bld) 0.4 % Normal 0.0-2.0 [facility] Comment on above: Performed By: #### 2 4317-0 #### [facility] [address] [place] [address] Eosinophils (Bld) [#/Vol] 0.30 10*3/uL Normal 0.00-0.70 [facility] Comment on above: Performed By: #### 2 4317-0 #### [facility] [address] [place] [address] Eosinophils/100 WBC (Bld) 3.5 % Normal 0.0-7.0 [facility] Comment on above: Performed By: #### 2 4317-0 #### [facility] [address] [place] [address] Erythrocyte distribution width (RBC) [Ratio] 15.3 % High 11.0-14.8 [facility] Comment on above: Performed By: #### 2 4317-0 #### [facility] [address] [place] [address] Hematocrit (Bld) [Volume fraction] 32.4 % Low 35.0-45.0 [facility] Comment on above: Performed By: #### 2 4317-0 #### [facility] [address] [place] [address] Hemoglobin (Bld) [Mass/Vol] 10.8 g/dL Low 12.0-16.0 [facility] Comment on above: Performed By: #### 2 4317-0 #### [facility] [address] [place] [address] Lymphocytes (Bld) [#/Vol] 3.10 10*3/uL Normal 1.00-4.80 [facility] Comment on above: Performed By: #### 2 4317-0 #### [facility] [address] [place] [address] Lymphocytes/100 WBC (Bld) 39.3 % Normal 22.0-44.0 [facility] Comment on above: Performed By: #### 2 4317-0 #### [facility] [address] [place] [address] MCH 27.2 pcg Normal 27.0-34.0 [facility] Comment on above: Performed By: #### 2 4317-0 #### [facility] [address] [place] [address] MCHC (RBC) [Mass/Vol] 33.4 g/dL Normal 32.0-36.0 [facility] Comment on above: Performed By: #### 2 4317-0 #### [facility] [address] [place] [address] MCV (RBC) [Entitic vol] 81.4 fL Normal 80.0-97.0 M [facility] Comment on above: Performed By: #### 2 4317-0 #### [facility] [address] [place] [address] Monocytes (Bld) [#/Vol] 0.50 10*3/uL Normal 0.00-0.90 [facility] Comment on above: Performed By: #### 2 4317-0 #### [facility] [address] [place] [address] Monocytes/100 WBC (Bld) 6.5 % Normal 0.0-12.0 M [facility] Comment on above: Performed By: #### 2 4317-0 #### [facility] [address] [place] [address] Neutrophils Absolute 4.00 K/mcL Normal 1.80-7.70 [facility] Comment on above: Performed By: #### 2 4317-0 #### [facility] [address] [place] [address] Neutrophils/100 WBC (Bld) 50.3 % Normal 40.0-70.0 [facility] Comment on above: Performed By: #### 2 4317-0 #### [facility] [address] [place] [address] Platelet mean volume (Bld) [Entitic vol] 6.6 fL Normal 6.2-12.1 [facility] Comment on above: Performed By: #### 2 4317-0 #### [facility] [address] [place] [address] Platelets (Bld) [#/Vol] 356 10*3/uL Normal 142-424 [facility] Comment on above: Performed By: #### 2 4317-0 #### [facility] [address] [place] [address] RBC (Bld) [#/Vol] 3.98 10*6/uL Normal 3.80-5.10 [facility] Comment on above: Performed By: #### 2 4317-0 #### [facility] [address] [place] [address] WBC (Bld) [#/Vol] 7.9 10*3/uL Normal 4.6-10.2 [facility] Comment on above: Performed By: #### 2 4317-0 #### [facility] [address] [place] [address] NM STRESS TEST WITH MYOCARDI AL PERFUSIONon [...] 71 109 78 161 85 1.0 67 67[address].0 138 67 Normal [facility] Tropinin I.cardiac panel Hig h sensitivity methodon 04-06-2021 High Sensitivity Troponin I 9 ng/L Normal <14 [facility] Comment on above: Performed By: #### 8 9577-1 #### [facility] [address] [place] [address] Basic metabolic 2000 panelon 04-05-2021 High Sensitivity Troponin I 6 ng/L Normal <14 [facility] Comment on above: Performed By: #### 2 4321-2 #### [facility] [address] [place] [address] Hemogram and platelets WO di fferential panel (Bld)on 04-05-2021 Basophils (Bld) [#/Vol] 0.00 10*3/uL Normal 0.00-0.20 [facility] Comment on above: Performed By: #### 2 4317-0 #### [facility] [address] [place] [address] Basophils/100 WBC (Bld) 0.5 % Normal 0.0-2.0 [facility] Comment on above: Performed By: #### 2 4317-0 #### [facility] [address] [place] [address] Eosinophils (Bld) [#/Vol] 0.20 10*3/uL Normal 0.00-0.70 [facility] Comment on above: Performed By: #### 2 4317-0 #### [facility] [address] [place] [address] Eosinophils/100 WBC (Bld) 2.1 % Normal 0.0-7.0 [facility] Comment on above: Performed By: #### 2 4317-0 #### [facility] [address] [place] [address] Erythrocyte distribution width (RBC) [Ratio] 15.4 % High 11.0-14.8 [facility] Comment on above: Performed By: #### 2 4317-0 #### [facility] [address] [place] [address] Hematocrit (Bld) [Volume fraction] 33.6 % Low 35.0-45.0 [facility] Comment on above: Performed By: #### 2 4317-0 #### [facility] [address] [place] [address] Hemoglobin (Bld) [Mass/Vol] 11.1 g/dL Low 12.0-16.0 [facility] Comment on above: Performed By: #### 2 4317-0 #### [facility] [address] [place] [address] Lymphocytes (Bld) [#/Vol] 2.80 10*3/uL Normal 1.00-4.80 [facility] Comment on above: Performed By: #### 2 4317-0 #### [facility] [address] [place] [address] Lymphocytes/100 WBC (Bld) 28.2 % Normal 22.0-44.0 [facility] Comment on above: Performed By: #### 2 4317-0 #### [facility] [address] [place] [address] MCH 27.7 pcg Normal 27.0-34.0 [facility] Comment on above: Performed By: #### 2 4317-0 #### [facility] [address] [place] [address] MCHC (RBC) [Mass/Vol] 33.2 g/dL Normal 32.0-36.0 [facility] Comment on above: Performed By: #### 2 4317-0 #### [facility] [address] [place] [address] MCV (RBC) [Entitic vol] 83.2 fL Normal 80.0-97.0 M [facility] Comment on above: Performed By: #### 2 4317-0 #### [facility] [address] [place] [address] Monocytes (Bld) [#/Vol] 0.50 10*3/uL Normal 0.00-0.90 [facility] Comment on above: Performed By: #### 2 4317-0 #### [facility] [address] [place] [address] Monocytes/100 WBC (Bld) 5.2 % Normal 0.0-12.0 M [facility] Comment on above: Performed By: #### 2 4317-0 #### [facility] [address] [place] [address] Neutrophils Absolute 6.30 K/mcL Normal 1.80-7.70 [facility] Comment on above: Performed By: #### 2 4317-0 #### [facility] [address] [place] [address] Neutrophils/100 WBC (Bld) 64.0 % Normal 40.0-70.0 [facility] Comment on above: Performed By: #### 2 4317-0 #### [facility] [address] [place] [address] Platelet mean volume (Bld) [Entitic vol] 6.9 fL Normal 6.2-12.1 [facility] Comment on above: Performed By: #### 2 4317-0 #### [facility] [address] [place] [address] Platelets (Bld) [#/Vol] 386 10*3/uL Normal 142-424 [facility] Comment on above: Performed By: #### 2 4317-0 #### [facility] [address] [place] [address] RBC (Bld) [#/Vol] 4.03 10*6/uL Normal 3.80-5.10 [facility] Comment on above: Performed By: #### 2 4317-0 #### [facility] [address] [place] [address] WBC (Bld) [#/Vol] 9.8 10*3/uL Normal 4.6-10.2 [facility] Comment on above: Performed By: #### 2 4317-0 #### [facility] [address] [place] [address] Natriuretic peptide B [Mass/ Vol]on 04-05-2021 BNP 44 pcg/mL Normal 0-100 [facility] Comment on above: Result Comment: <100 : CHF is unlikely 100-400: Possible left ventricular dysfunction-unlikely acute decompensation >400: Suspicious for decompensated heart failure Performed By: #### 3 0934-4 #### [facility] [address] [place] [address] SARS-CoV-2 RNA Resp Ql CAL+p robeon 04-05-2021 SARS-CoV-2 (COVID-19) RNA CAL+probe Ql (Resp) Not detected Normal Not Detected [facility] Comment on above: Performed By: #### 9 4500-6 #### [facility] ([facility]) [facility] [address] [place] [address] TRANSTHORACIC ECHOCARDIOGRAM (TTE) COMPLETE (CONTRAST/BUBBLE/3D PRN)on 04-05-2021 [...] 36 27 1.1 30 10 1.68 Normal [facility] Tropinin I.cardiac panel Hig h sensitivity methodon 04-05-2021 High Sensitivity Troponin I 12 ng/L Normal <14 [facility] Comment on above: Performed By: #### 8 9577-1 #### [facility] [address] [place] [address] Urinalysis dipstick W Reflex Culture panel (U)on 04-05-2021 Bilirubin, Urine Negative Normal Negative [facility] Comment on above: Performed By: #### 5 7019-2 #### [facility] [address] [place] [address] Blood, Urine Negative Normal Negative [facility] Comment on above: Performed By: #### 5 7019-2 #### [facility] [address] [place] [address] Clarity (U) Clear Normal Clear [facility] Comment on above: Performed By: #### 5 7019-2 #### [facility] [address] [place] [address] Color (U) Straw Abnormal Yellow [facility] Comment on above: Performed By: #### 5 7019-2 #### [facility] [address] [facility] [place] [address] Glucose Ql (U) >=500 Abnormal Normal [facility] Comment on above: Performed By: #### 5 7019-2 #### [facility] [address] [place] [address] Ketones Ql (U) Negative Normal Negative [facility] Comment on above: Performed By: #### 5 7019-2 #### [facility] [address] [place] [address] Leukocytes, Urine Negative Normal Negative [facility] Comment on above: Performed By: #### 5 7019-2 #### [facility] [address] [place] [address] Nitrite, Urine Negative Normal Negative [facility] Comment on above: Performed By: #### 5 7019-2 #### [facility] [address] [place] [address] pH (U) 7.0 [pH] Normal 5.0-8.0 [facility] Comment on above: Performed By: #### 5 7019-2 #### [facility] [address] [place] [address] Protein, Urine Negative Normal Negative [facility] Comment on above: Performed By: #### 5 7019-2 #### [facility] [address] [place] [address] Specific [place] Urine 1.014 Normal 1.002-1.030 [facility] Comment on above: Performed By: #### 5 7019-2 #### [facility] [address] [place] [address] Urobilinogen, Urine Normal Normal Normal [facility] Comment on above: Performed By: #### 5 7019-2 #### [facility] [address] [place] [address] XR CHEST 1 VIEWon 04-05-2021 XR CHEST [...] Self Edit Transcribed Date: 04/05/2021 14:59 Normal [facility] XR HAND LEFT 3+ VIEWSon XR [...] the second, third and fourth fingers. Normal [facility] CBC(NO DIFF)on 03-15-2021 Erythrocyte distribution width (RBC) [Ratio] 15.2 % High 11.5-14.5 [facility] Comment on above: Performed By: #### H EMOG, CMPF, LIP2, RTSH, T42 #### Testing performed at [address] [address] Hematocrit (Bld) [Volume fraction] 34.3 % Low 36.0-48.0 [facility] Comment on above: Performed By: #### H EMOG, CMPF, LIP2, RTSH, T42 #### Testing performed at [address] [address] Hemoglobin (Bld) [Mass/Vol] 11.1 g/dL Low 12.0-16.0 [facility] Comment on above: Performed By: #### H EMOG, CMPF, LIP2, RTSH, T42 #### Testing performed at [address] [address] MCH (RBC) [Entitic mass] 27.0 pg Normal 26.0-35.0 [facility] Comment on above: Performed By: #### H EMOG, CMPF, LIP2, RTSH, T42 #### Testing performed at [place] [id number] MCHC (RBC) [Mass/Vol] 32.4 g/dL Normal 27.0-37.0 [facility] Comment on above: Performed By: #### H EMOG, CMPF, LIP2, RTSH, T42 #### Testing performed at [place] [id number] MCV (RBC) [Entitic vol] 83.4 fL Normal 80.0-100.0 [facility] [facility] Comment on above: Performed By: #### H EMOG, CMPF, LIP2, RTSH, T42 #### [place] [address] Platelet mean volume (Bld) [Entitic vol] 7.1 fL Low 7.4-11.0 [facility] Comment on above: Result Comment: Test ing performed at [place] [address] Performed By: #### H EMOG, CMPF, LIP2, RTSH, T42 #### Testing performed at [place] [id number] Platelets (Bld) [#/Vol] 339 10*3/uL Normal 130.0-400.0 [facility] Comment on above: Performed By: #### H EMOG, CMPF, LIP2, RTSH, T42 #### Testing performed at [place] [id number] RBC (Bld) [#/Vol] 4.11 10*6/uL Normal 4.0-5.4 [facility] Comment on above: Performed By: #### H EMOG, CMPF, LIP2, RTSH, T42 #### Testing performed at [place] [id number] WBC (Bld) [#/Vol] 6.8 10*3/uL Normal 3.6-11.0 [facility] Comment on above: Performed By: #### H EMOG, CMPF, LIP2, RTSH, T42 #### Testing performed at [place] [id number] CMP FASTINGon 03-15-2021 A:G RATIO 1.1 RATIO Low 1.3-2.2 [facility] Comment on above: Performed By: #### H EMOG, CMPF, LIP2, RTSH, T42 #### Testing performed at [place] [id number] ALBUMIN 3.9 G/dl Normal 3.5-5.0 [facility] Comment on above: Performed By: #### H EMOG, CMPF, LIP2, RTSH, T42 #### Testing performed at [place] [id number] ALP [Catalytic activity/Vol] 113 U/L Normal 38-126 [facility] Comment on above: Performed By: #### H EMOG, CMPF, LIP2, RTSH, T42 #### Testing performed at [place] [id number] ALT [Catalytic activity/Vol] 14 U/L Normal <35 [facility] Comment on above: Performed By: #### H EMOG, CMPF, LIP2, RTSH, T42 #### Testing performed at [place] [id number] AST [Catalytic activity/Vol] 19 U/L Normal 14-36 [facility] Comment on above: Performed By: #### H EMOG, CMPF, LIP2, RTSH, T42 #### Testing performed at [address] [address] Bilirubin [Mass/Vol] 0.4 mg/dL Normal 0.2-1.3 [facility] Comment on above: Performed By: #### H EMOG, CMPF, LIP2, RTSH, T42 #### Testing performed at [place] [id number] Calcium [Mass/Vol] 9.6 mg/dL Normal 8.4-10.2 [facility] Comment on above: Performed By: #### H EMOG, CMPF, LIP2, RTSH, T42 #### [place] [address] Chloride [Moles/Vol] 105 mmol/L Normal 98-107 [facility] Comment on above: Result Comment: Vasyl hickman note: Triglyceride levels of 600mg/dL or higher may positively bias chloride results by approximately 2.1 mmol Performed By: #### H EMOG, CMPF, LIP2, RTSH, T42 #### [place] [address] CO2 [Moles/Vol] 24 mmol/L Normal 22-30 [facility] Comment on above: Performed By: #### H EMOG, CMPF, LIP2, RTSH, T42 #### [place] [address] Creatinine [Mass/Vol] 1.20 mg/dL Normal 0.7-1.2 [facility] [place] [facility] Comment on above: Performed By: #### H EMOG, CMPF, LIP2, RTSH, T42 #### [place] [address] EST. GFR, 59 ml/min/1.73sq.m [facility] Comment on above: Performed By: #### H EMOG, CMPF, LIP2, RTSH, T42 #### [place] [address] EST. GFR,Non 49 ml/min/1.73sq.m [facility] Comment on above: Performed By: #### H EMOG, CMPF, LIP2, RTSH, T42 #### [place] [address] GFR Information Average GFR for 50-5 9 years old = 93. Normal [facility] Comment on above: Result Comment: [employer] [place] Kidney disease, GFR = <60. Kidney failure, GFR = <15. The GFR estimate is not adjusted for extreme body surface area or acute process, nor has it been validated for women or ethnic groups other than and . Testing performed at [place] [address] Performed By: #### H EMOG, CMPF, LIP2, RTSH, T42 #### [place] [address] Glucose [Mass/Vol] 222 mg/dL High 70-100 [facility] Comment on above: Result Comment: NORMAL <100 mg/dL PREDIABETES 101-126 mg/dL DIABETES 126 mg/dL or higher Performed By: #### H EMOG, CMPF, LIP2, RTSH, T42 #### [place] [address] Potassium [Moles/Vol] 4.5 mmol/L Normal 3.5-5.1 [facility] [place] [facility] Comment on above: Performed By: #### H EMOG, CMPF, LIP2, RTSH, T42 #### Testing performed at [place] [id number] Protein [Mass/Vol] 7.3 g/dL Normal 6.3-8.2 [facility] Comment on above: Performed By: #### H EMOG, CMPF, LIP2, RTSH, T42 #### Testing performed at [place] [id number] Sodium [Moles/Vol] 139 mmol/L Normal 137-145 [facility] Comment on above: Performed By: #### H EMOG, CMPF, LIP2, RTSH, T42 #### Testing performed at [place] [id number] Urea nitrogen [Mass/Vol] 26 mg/dL High 7-20 [facility] Comment on above: Performed By: #### H EMOG, CMPF, LIP2, RTSH, T42 #### Testing performed at [place] [id number] FREE T4on 03-15-2021 Free T4 [Mass/Vol] 1.07 ng/dL Normal 0.78-2.19 [facility] Comment on above: Result Comment: Test ing performed at [place], [place] [address] Performed By: #### H EMOG, CMPF, LIP2, RTSH, T42 #### Testing performed at [address] [address] HEMOGLOBIN A1Con 03-15-2021 Glucose [Mass/Vol] 289 mg/dL Normal [facility] HbA1c (Bld) [Mass fraction] 11.7 % High 0-6 [facility] Comment on above: Result Comment: NORMAL <5.7% PREDIABETES 5.7-6.4% DIABETES 6.5% OR HIGHER LIPID PROFILEon 03-15-2021 Cholesterol [Mass/Vol] 226 mg/dL High 107-217 [facility] Comment on above: Performed By: #### H EMOG, CMPF, LIP2, RTSH, T42 #### Testing performed at [address] [address] Cholesterol in HDL [Mass/Vol] 48 mg/dL Normal 33-75 [facility] Comment on above: Performed By: #### H EMOG, CMPF, LIP2, RTSH, T42 #### Testing performed at [address] [address] Cholesterol in LDL [Mass/Vol] 143 mg/dL Normal [facility] Comment on above: Performed By: #### H EMOG, CMPF, LIP2, RTSH, T42 #### Testing performed at [address] [address] Cholesterol in VLDL [Mass/Vol] 35 mg/dL High 5.0-25 [facility] Comment on above: Performed By: #### H EMOG, CMPF, LIP2, RTSH, T42 #### Testing performed at [address] [address] Cholesterol.total/Erika sterol in HDL [Mass ratio] 4.71 {ratio} Normal [facility] Comment on above: Result Comment: RISK TOTAL/HDL RATIO MEN WOMEN 1/2 AVERAGE 3.43 3.27 AVERAGE 4.97 4.44 2X AVERAGE 9.55 7.05 3X AVERAGE 23.99 11.04 Testing performed at [place] [address] Performed By: #### H EMOG, CMPF, LIP2, RTSH, T42 #### [place] [address] Triglyceride [Mass/Vol] 174 mg/dL High 0-150 [facility] Comment on above: Performed By: #### H EMOG, CMPF, LIP2, RTSH, T42 #### [place] [address] MALB/CREAT RATIO,URINEon MALB/CREAT RATIO,URINE 126.2 mg MALB/g CREAT High 1. 3-30.0 [facility] Comment on above: Result Comment: Test ing performed at [place] [address] Performed By: #### M CRAT #### [place] [address] MICROALBUMIN,RANDOM URINE 133.1 mg/L High 0-16.7 [facility] Comment on above: Performed By: #### M CRAT #### [place] [address] URINE CREATININE RANDOM 105.5 MG/DL Normal [facility] Comment on above: Result Comment: NO N ORMAL VALUES ESTABLISHED FOR RANDOM SPECIMENS Performed By: #### M CRAT #### [place] [address] TSH,REFLEX FREE T4on 022 TSH,REFLEX FREE T4 7.180 uIU/ML High 0.46-4.68 [facility] Comment on above: Result Comment: Test ing performed at [place] [address] Performed By: #### H EMOG, CMPF, LIP2, RTSH, T42 #### [place] [address] BUN CREAon 03-07-2021 Creatinine [Mass/Vol] 1.16 mg/dL Normal 0.50-1.20 [facility] Comment on above: Order Comment: Prior to first [facility] and every 2 weeks if baseline CR is within normal limits. Performed By: #### B CR #### [facility] (DEFAULT) [address] [address] EST GFR, 58 mL/min/1.73sqM Low >=60 [facility] Comment on above: Order Comment: Prior to first [facility] and every 2 weeks if baseline CR is within normal limits. Performed By: #### B CR #### [facility] (DEFAULT) [address] [address] EST GFR,Non 48 mL/min/1.73sqM Low >=60 [facility] Comment on above: Order Comment: Prior to first [facility] and every 2 weeks if baseline CR is within normal limits. Performed By: #### B CR #### [facility] (DEFAULT) [address] [address] Urea nitrogen [Mass/Vol] 19 mg/dL Normal 7-25 [facility] Comment on above: Order Comment: Prior to first [facility] and every 2 weeks if baseline CR is within normal limits. Performed By: #### B CR #### [facility] (DEFAULT) [address] [address] Urea nitrogen/Creatinine [Mass ratio] 16 mg/mg Normal [facility] Comment on above: Order Comment: Prior to first [facility] and every 2 weeks if baseline CR is within normal limits. Performed By: #### B CR #### [facility] (DEFAULT) [address] [address] CBC AND ELECTRONIC DIFFon Basophils (Bld) [#/Vol] 10*3/uL Normal 0.00-0.15 O [facility] Comment on above: Order Comment: Prior to first [facility] and every 2 weeks if baseline CR is within normal limits. Performed By: #### B CR #### [facility] (DEFAULT) [address] [address] Basophils/100 WBC (Bld) 0.2 % Normal O [facility] Comment on above: Order Comment: Prior to first [facility] and every 2 weeks if baseline CR is within normal limits. Performed By: #### B CR #### [facility] (DEFAULT) [address] [address] DIFF STATUS Electronic Differential Normal [facility] Comment on above: Order Comment: Prior to first [facility] and every 2 weeks if baseline CR is within normal limits. Performed By: #### B CR #### [facility] (DEFAULT) [address] [address] Eosinophils (Bld) [#/Vol] 0.21 10*3/uL Normal 0.00-0.42 [facility] Comment on above: Order Comment: Prior to first [facility] and every 2 weeks if baseline CR is within normal limits. Performed By: #### B CR #### [facility] (DEFAULT) [address] [address] Eosinophils/100 WBC (Bld) 2.3 % Normal [facility] Comment on above: Order Comment: Prior to first [facility] and every 2 weeks if baseline CR is within normal limits. Performed By: #### B CR #### [facility] (DEFAULT) [address] [address] Hematocrit (Bld) [Volume fraction] 32.6 % Low 34.9-44.3 [facility] Comment on above: Order Comment: Prior to first [facility] and every 2 weeks if baseline CR is within normal limits. Performed By: #### B CR #### [facility] (DEFAULT) [address] [address] Hemoglobin (Bld) [Mass/Vol] 10.2 g/dL Low 11.4-15.2 [facility] Comment on above: Order Comment: Prior to first [facility] and every 2 weeks if baseline CR is within normal limits. Performed By: #### B CR #### [facility] (DEFAULT) [address] [address] Immature Grans % 0.2 % Normal [facility] Comment on above: Order Comment: Prior to first [facility] and every 2 weeks if baseline CR is within normal limits. Performed By: #### B CR #### [facility] (DEFAULT) [address] [address] Immature Grans Absolute <0.04 Normal <=0.09 O [facility] Comment on above: Order Comment: Prior to first [facility] and every 2 weeks if baseline CR is within normal limits. Performed By: #### B CR #### [facility] (DEFAULT) [address] [address] Lymphocytes (Bld) [#/Vol] 2.26 10*3/uL Normal 1.16-3.51 [facility] Comment on above: Order Comment: Prior to first [facility] and every 2 weeks if baseline CR is within normal limits. Performed By: #### B CR #### [facility] (DEFAULT) [address] [address] Lymphocytes/100 WBC (Bld) 25.3 % Normal [facility] Comment on above: Order Comment: Prior to first [facility] and every 2 weeks if baseline CR is within normal limits. Performed By: #### B CR #### [facility] (DEFAULT) [address] [address] MCV (RBC) [Entitic vol] 86.2 fL Normal 79.6-97.7 O [facility] Comment on above: Order Comment: Prior to first [facility] and every 2 weeks if baseline CR is within normal limits. Performed By: #### B CR #### [facility] (DEFAULT) [address] [address] Mean Cell Hgb 27.0 pg Normal 25.9-33.9 [facility] Comment on above: Order Comment: Prior to first [facility] and every 2 weeks if baseline CR is within normal limits. Performed By: #### B CR #### [facility] (DEFAULT) [address] [address] Mean Cell Hgb Conc 31.3 g/dL Low 31.4-35.9 [facility] Comment on above: Order Comment: Prior to first [facility] and every 2 weeks if baseline CR is within normal limits. Performed By: #### B CR #### [facility] (DEFAULT) [address] [place] [address] Monocytes (Bld) [#/Vol] 0.44 10*3/uL Normal 0.22-0.87 [facility] Comment on above: Order Comment: Prior to first [facility] and every 2 weeks if baseline CR is within normal limits. Performed By: #### B CR #### [facility] (DEFAULT) [address] [address] Monocytes/100 WBC (Bld) 4.9 % Normal O [facility] Comment on above: Order Comment: Prior to first [facility] and every 2 weeks if baseline CR is within normal limits. Performed By: #### B CR #### [facility] (DEFAULT) [address] [address] Nucleated RBC 0.0 /100 WBC Normal <=0.2 [facility] Comment on above: Order Comment: Prior to first [facility] and every 2 weeks if baseline CR is within normal limits. Performed By: #### B CR #### [facility] (DEFAULT) [address] [address] Platelet mean volume (Bld) [Entitic vol] 9.7 fL Normal 8.5-12.2 [facility] Comment on above: Order Comment: Prior to first [facility] and every 2 weeks if baseline CR is within normal limits. Performed By: #### B CR #### [facility] (DEFAULT) [address] [address] Platelets (Bld) [#/Vol] 350 10*3/uL Normal 150-393 [facility] Comment on above: Order Comment: Prior to first [facility] and every 2 weeks if baseline CR is within normal limits. Performed By: #### B CR #### [facility] (DEFAULT) [address] [address] RBC (Bld) [#/Vol] 3.78 10*6/uL Low 3.91-5.04 [facility] Comment on above: Order Comment: Prior to first [facility] and every 2 weeks if baseline CR is within normal limits. Performed By: #### B CR #### [facility] (DEFAULT) [address] [address] RBC Distribution 14.6 % Normal 10.8-14.9 [facility] Comment on above: Order Comment: Prior to first [facility] and every 2 weeks if baseline CR is within normal limits. Performed By: #### B CR #### [facility] (DEFAULT) [address] [address] Segs + Bands Auto 67.1 % Normal [place] [facility] Comment on above: Order Comment: Prior to first [facility] and every 2 weeks if baseline CR is within normal limits. Performed By: #### B CR #### [facility] (DEFAULT) [address] [address] Segs + Bands,Absolute Auto 5.99 K/uL Normal 1.64-7.28 [facility] Comment on above: Order Comment: Prior to first [facility] and every 2 weeks if baseline CR is within normal limits. Performed By: #### B CR #### [facility] (DEFAULT) [address] [address] WBC (Bld) [#/Vol] 8.94 10*3/uL Normal 3.99-11.19 [facility] Comment on above: Order Comment: Prior to first [facility] and every 2 weeks if baseline CR is within normal limits. Performed By: #### B CR #### [facility] (DEFAULT) [address] [address] BUN CREAon 02-21-2021 Creatinine [Mass/Vol] 1.19 mg/dL Normal 0.50-1.20 [facility] Comment on above: Order Comment: Prior to first [facility] and every 2 weeks if baseline CR is within normal limits. Performed By: #### B CR #### [facility] (DEFAULT) [address] [address] EST GFR, 56 mL/min/1.73sqM Low >=60 [facility] Comment on above: Order Comment: Prior to first [facility] and every 2 weeks if baseline CR is within normal limits. Performed By: #### B CR #### [facility] (DEFAULT) [address] [address] EST GFR,Non 47 mL/min/1.73sqM Low >=60 [facility] Comment on above: Order Comment: Prior to first [facility] and every 2 weeks if baseline CR is within normal limits. Performed By: #### B CR #### [facility] (DEFAULT) [address] [address] Urea nitrogen [Mass/Vol] 28 mg/dL High 7-25 [facility] Comment on above: Order Comment: Prior to first [facility] and every 2 weeks if baseline CR is within normal limits. Performed By: #### B CR #### [facility] (DEFAULT) [address] [address] Urea nitrogen/Creatinine [Mass ratio] 24 mg/mg Normal [facility] Comment on above: Order Comment: Prior to first [facility] Infusion and every 2 weeks if baseline CR is within normal limits. Performed By: #### B CR #### [facility] (DEFAULT) [address] [address] CBC AND ELECTRONIC DIFFon Basophils (Bld) [#/Vol] 0.05 10*3/uL Normal 0.00-0.15 [facility] Comment on above: Order Comment: Prior to first [facility]fusion and every 2 weeks if baseline CR is within normal limits. Performed By: #### B CR #### [facility] (DEFAULT) [address] [place] [address] Basophils/100 WBC (Bld) 0.6 % Normal O [facility] Comment on above: Order Comment: Prior to first [facility]fusion and every 2 weeks if baseline CR is within normal limits. Performed By: #### B CR #### [facility] (DEFAULT) [address] [place] [address] DIFF STATUS Electronic Differential Normal [facility] Comment on above: Order Comment: Prior to first [facility] and every 2 weeks if baseline CR is within normal limits. Performed By: #### B CR #### [facility] (DEFAULT) [address] [place] [address] Eosinophils (Bld) [#/Vol] 0.16 10*3/uL Normal 0.00-0.42 [facility] Comment on above: Order Comment: Prior to first [facility] Infusion and every 2 weeks if baseline CR is within normal limits. Performed By: #### B CR #### [facility] (DEFAULT) [address] [address] Eosinophils/100 WBC (Bld) 1.8 % Normal [facility] Comment on above: Order Comment: Prior to first [facility] Infusion and every 2 weeks if baseline CR is within normal limits. Performed By: #### B CR #### [facility] (DEFAULT) [address] [place] [address] Hematocrit (Bld) [Volume fraction] 34.7 % Low 34.9-44.3 [facility] Comment on above: Order Comment: Prior to first [facility] Infusion and every 2 weeks if baseline CR is within normal limits. Performed By: #### B CR #### [facility] (DEFAULT) [address] [address] Hemoglobin (Bld) [Mass/Vol] 11.0 g/dL Low 11.4-15.2 [facility] Comment on above: Order Comment: Prior to first [facility] Infusion and every 2 weeks if baseline CR is within normal limits. Performed By: #### B CR #### [facility] (DEFAULT) [address] [address] Immature Grans % 0.1 % Normal [facility] Comment on above: Order Comment: Prior to first [facility] Infusion and every 2 weeks if baseline CR is within normal limits. Performed By: #### B CR #### [facility] (DEFAULT) [address] [address] Immature Grans Absolute <0.04 Normal <=0.09 O [facility] Comment on above: Order Comment: Prior to first [facility] Infusion and every 2 weeks if baseline CR is within normal limits. Performed By: #### B CR #### [facility] (DEFAULT) [address] [address] Lymphocytes (Bld) [#/Vol] 2.61 10*3/uL Normal 1.16-3.51 [facility] Comment on above: Order Comment: Prior to first [facility] Infusion and every 2 weeks if baseline CR is within normal limits. Performed By: #### B CR #### [facility] (DEFAULT) [address] [address] Lymphocytes/100 WBC (Bld) 29.4 % Normal [facility] Comment on above: Order Comment: Prior to first [facility] Infusion and every 2 weeks if baseline CR is within normal limits. Performed By: #### B CR #### [facility] (DEFAULT) [address] [address] MCV (RBC) [Entitic vol] 85.5 fL Normal 79.6-97.7 O [facility] Comment on above: Order Comment: Prior to first [facility] Infusion and every 2 weeks if baseline CR is within normal limits. Performed By: #### B CR #### [facility] (DEFAULT) [address] [address] Mean Cell Hgb 27.1 pg Normal 25.9-33.9 [facility] Comment on above: Order Comment: Prior to first [facility] Infusion and every 2 weeks if baseline CR is within normal limits. Performed By: #### B CR #### [facility] (DEFAULT) [address] [address] Mean Cell Hgb Conc 31.7 g/dL Normal 31.4-35.9 [facility] Comment on above: Order Comment: Prior to first [facility] Infusion and every 2 weeks if baseline CR is within normal limits. Performed By: #### B CR #### [facility] (DEFAULT) [address] [place] [address] Monocytes (Bld) [#/Vol] 0.39 10*3/uL Normal 0.22-0.87 [facility] Comment on above: Order Comment: Prior to first [facility] Infusion and every 2 weeks if baseline CR is within normal limits. Performed By: #### B CR #### [facility] (DEFAULT) [address] [address] Monocytes/100 WBC (Bld) 4.4 % Normal O [facility] Comment on above: Order Comment: Prior to first [facility] Infusion and every 2 weeks if baseline CR is within normal limits. Performed By: #### B CR #### [facility] (DEFAULT) [address] [place] [address] Nucleated RBC 0.0 /100 WBC Normal <=0.2 [facility] Comment on above: Order Comment: Prior to first [facility] Infusion and every 2 weeks if baseline CR is within normal limits. Performed By: #### B CR #### [facility] (DEFAULT) [address] [place] [address] Platelet mean volume (Bld) [Entitic vol] 9.7 fL Normal 8.5-12.2 [facility] Comment on above: Order Comment: Prior to first [facility] Infusion and every 2 weeks if baseline CR is within normal limits. Performed By: #### B CR #### [facility] (DEFAULT) [address] [place] [address] Platelets (Bld) [#/Vol] 383 10*3/uL Normal 150-393 [facility] Comment on above: Order Comment: Prior to first [facility] Infusion and every 2 weeks if baseline CR is within normal limits. Performed By: #### B CR #### [facility] (DEFAULT) [address] [place] [address] RBC (Bld) [#/Vol] 4.06 10*6/uL Normal 3.91-5.04 [facility] Comment on above: Order Comment: Prior to first [facility] and every 2 weeks if baseline CR is within normal limits. Performed By: #### B CR #### [facility] (DEFAULT) [address] [place] [address] RBC Distribution 14.5 % Normal 10.8-14.9 [facility] Comment on above: Order Comment: Prior to first [facility] Infusion and every 2 weeks if baseline CR is within normal limits. Performed By: #### B CR #### [facility] (DEFAULT) [address] [place] [address] Segs + Bands Auto 63.7 % Normal [place] [facility] Comment on above: Order Comment: Prior to first [facility] Infusion and every 2 weeks if baseline CR is within normal limits. Performed By: #### B CR #### [facility] (DEFAULT) [address] [address] Segs + Bands,Absolute Auto 5.66 K/uL Normal 1.64-7.28 [facility] Comment on above: Order Comment: Prior to first [facility] Infusion and every 2 weeks if baseline CR is within normal limits. Performed By: #### B CR #### [facility] (DEFAULT) [address] [place] [address] WBC (Bld) [#/Vol] 8.88 10*3/uL Normal 3.99-11.19 [facility] Comment on above: Order Comment: Prior to first [facility] Infusion and every 2 weeks if baseline CR is within normal limits. Performed By: #### B CR #### [facility] (DEFAULT) [address] [address] OCT/HRT MACULA OUon 02-15-20 OCT/HRT [place] OU Right Eye Quality was good. Findings include subretinal fluid. Interval change is better. Recommendation for management is to continue treatment. Left Eye Quality was good. Findings include subretinal fluid. Interval change is better. Recommendation for management is to continue treatment. Normal [facility] BUN CREAon 02-07-2021 Creatinine [Mass/Vol] 1.20 mg/dL Normal 0.50-1.20 [facility] Comment on above: Order Comment: Prior to first [facility] Infusion and every 2 weeks if baseline CR is within normal limits. Performed By: #### B CR #### [facility] (DEFAULT) [address] [address] EST GFR, 56 mL/min/1.73sqM Low >=60 [facility] Comment on above: Order Comment: Prior to first [facility] Infusion and every 2 weeks if baseline CR is within normal limits. Performed By: #### B CR #### [facility] (DEFAULT) [address] [address] EST GFR,Non 46 mL/min/1.73sqM Low >=60 [facility] Comment on above: Order Comment: Prior to first [facility] Infusion and every 2 weeks if baseline CR is within normal limits. Performed By: #### B CR #### [facility] (DEFAULT) [address] [place] [address] Urea nitrogen [Mass/Vol] 21 mg/dL Normal 09-07 [facility] Comment on above: Order Comment: Prior to first [facility] Infusion and every 2 weeks if baseline CR is within normal limits. Performed By: #### B CR #### [facility] (DEFAULT) [address] [address] Urea nitrogen/Creatinine [Mass ratio] 18 mg/mg Normal [facility] Comment on above: Order Comment: Prior to first [facility] Infusion and every 2 weeks if baseline CR is within normal limits. Performed By: #### B CR #### [facility] (DEFAULT) [address] [address] CBC AND ELECTRONIC DIFFon Basophils (Bld) [#/Vol] 0.05 10*3/uL Normal 0.00-0.15 [facility] Comment on above: Order Comment: Prior to first [facility] Infusion and then every 2 weeks.until results within normal limits. Collect weekly if baseline is abnormal. Performed By: #### L [id number] #### [facility] (DEFAULT) [address] [address] Basophils/100 WBC (Bld) 0.5 % Normal O [facility] Comment on above: Order Comment: Prior to first [facility] Infusion and then every 2 weeks.until results within normal limits. Collect weekly if baseline is abnormal. Performed By: #### L [id number] #### [facility] (DEFAULT) [address] [address] DIFF STATUS Electronic Differential Normal [facility] Comment on above: Order Comment: Prior to first [facility] Infusion and then every 2 weeks.until results within normal limits. Collect weekly if baseline is abnormal. Performed By: #### L [id number] #### [facility] (DEFAULT) [address] [address] Eosinophils (Bld) [#/Vol] 0.31 10*3/uL Normal 0.00-0.42 [facility] Comment on above: Order Comment: Prior to first [facility] Infusion and then every 2 weeks.until results within normal limits. Collect weekly if baseline is abnormal. Performed By: #### L [id number] #### [facility] (DEFAULT) [address] [address] Eosinophils/100 WBC (Bld) 3.3 % Normal [facility] Comment on above: Order Comment: Prior to first [facility] Infusion and then every 2 weeks.until results within normal limits. Collect weekly if baseline is abnormal. Performed By: #### L [id number] #### [facility] (DEFAULT) [address] [address] Hematocrit (Bld) [Volume fraction] 33.5 % Low 34.9-44.3 [facility] Comment on above: Order Comment: Prior to first [facility] Infusion and then every 2 weeks.until results within normal limits. Collect weekly if baseline is abnormal. Performed By: #### L [id number] #### [facility] (DEFAULT) [address] [address] Hemoglobin (Bld) [Mass/Vol] 10.5 g/dL Low 11.4-15.2 [facility] Comment on above: Order Comment: Prior to first [facility] Infusion and then every 2 weeks.until results within normal limits. Collect weekly if baseline is abnormal. Performed By: #### L [id number] #### [facility] (DEFAULT) [address] [address] Immature Grans % 0.2 % Normal [facility] Comment on above: Order Comment: Prior to first [facility] Infusion and then every 2 weeks.until results within normal limits. Collect weekly if baseline is abnormal. Performed By: #### L [id number] #### [facility] (DEFAULT) [address] [place] [address] Immature Grans Absolute <0.04 Normal <=0.09 O [facility] Comment on above: Order Comment: Prior to first [facility] Infusion and then every 2 weeks.until results within normal limits. Collect weekly if baseline is abnormal. Performed By: #### L [id number] #### [facility] (DEFAULT) [address] [address] Lymphocytes (Bld) [#/Vol] 2.84 10*3/uL Normal 1.16-3.51 [facility] Comment on above: Order Comment: Prior to first [facility] Infusion and then every 2 weeks.until results within normal limits. Collect weekly if baseline is abnormal. Performed By: #### L [id number] #### [facility] (DEFAULT) [address] [address] Lymphocytes/100 WBC (Bld) 30.6 % Normal [facility] Comment on above: Order Comment: Prior to first [facility] Infusion and then every 2 weeks.until results within normal limits. Collect weekly if baseline is abnormal. Performed By: #### L [id number] #### [facility] (DEFAULT) [address] [address] MCV (RBC) [Entitic vol] 85.7 fL Normal 79.6-97.7 [facility] Comment on above: Order Comment: Prior to first [facility] Infusion and then every 2 weeks.until results within normal limits. Collect weekly if baseline is abnormal. Performed By: #### L [id number] #### [facility] (DEFAULT) [address] [address] Mean Cell Hgb 26.9 pg Normal 25.9-33.9 [facility] Comment on above: Order Comment: Prior to first [facility] Infusion and then every 2 weeks.until results within normal limits. Collect weekly if baseline is abnormal. Performed By: #### L [id number] #### [facility] (DEFAULT) [address] [address] Mean Cell Hgb Conc 31.3 g/dL Low 31.4-35.9 [facility] Comment on above: Order Comment: Prior to first [facility]ex Infusion and then every 2 weeks.until results within normal limits. Collect weekly if baseline is abnormal. Performed By: #### L [id number] #### [facility] (DEFAULT) [address] [address] Monocytes (Bld) [#/Vol] 0.42 10*3/uL Normal 0.22-0.87 [facility] Comment on above: Order Comment: Prior to first [facility] Infusion and then every 2 weeks.until results within normal limits. Collect weekly if baseline is abnormal. Performed By: #### L [id number] #### [facility] (DEFAULT) [address] [address] Monocytes/100 WBC (Bld) 4.5 % Normal [facility] Comment on above: Order Comment: Prior to first [facility]ex Infusion and then every 2 weeks.until results within normal limits. Collect weekly if baseline is abnormal. Performed By: #### L [id number] #### [facility] (DEFAULT) [address] [address] Nucleated RBC 0.0 /100 WBC Normal <=0.2 [facility] Comment on above: Order Comment: Prior to first [facility]ex Infusion and then every 2 weeks.until results within normal limits. Collect weekly if baseline is abnormal. Performed By: #### L [id number] #### [facility] (DEFAULT) [address] [address] Platelet mean volume (Bld) [Entitic vol] 9.3 fL Normal 8.5-12.2 [facility] Comment on above: Order Comment: Prior to first [facility]ex Infusion and then every 2 weeks.until results within normal limits. Collect weekly if baseline is abnormal. Performed By: #### L [id number] #### [facility] (DEFAULT) [address] [address] Platelets (Bld) [#/Vol] 398 10*3/uL High 150-393 [facility] Comment on above: Order Comment: Prior to first [facility]ex Infusion and then every 2 weeks.until results within normal limits. Collect weekly if baseline is abnormal. Performed By: #### L [id number] #### [facility] (DEFAULT) [address] [address] RBC (Bld) [#/Vol] 3.91 10*6/uL Normal 3.91-5.04 [facility] Comment on above: Order Comment: Prior to first [facility]ex Infusion and then every 2 weeks.until results within normal limits. Collect weekly if baseline is abnormal. Performed By: #### L [id number] #### [facility] (DEFAULT) [address] [address] RBC Distribution 14.5 % Normal 10.8-14.9 [facility] Comment on above: Order Comment: Prior to first [facility]ex Infusion and then every 2 weeks.until results within normal limits. Collect weekly if baseline is abnormal. Performed By: #### L [id number] #### [facility] (DEFAULT) [address] [address] Segs + Bands Auto 60.9 % Normal [place] [facility] Comment on above: Order Comment: Prior to first [facility]ex Infusion and then every 2 weeks.until results within normal limits. Collect weekly if baseline is abnormal. Performed By: #### L [id number] #### [facility] (DEFAULT) [address] [address] Segs + Bands,Absolute Auto 5.63 K/uL Normal 1.64-7.28 [facility] Comment on above: Order Comment: Prior to first [facility]ex Infusion and then every 2 weeks.until results within normal limits. Collect weekly if baseline is abnormal. Performed By: #### L [id number] #### [facility] (DEFAULT) [address] [address] WBC (Bld) [#/Vol] 9.27 10*3/uL Normal 3.99-11.19 [facility] Comment on above: Order Comment: Prior to first [facility]ex Infusion and then every 2 weeks.until results within normal limits. Collect weekly if baseline is abnormal. Performed By: #### L [id number] #### [facility] (DEFAULT) [address] [address] B HYDROXYBUTYRATEon 01-15-20 21 B HYDROXYBUTYRATE 0.08 MMOL/L Normal 0.02-0.27 [facility] Comment on above: Performed By: #### C SANGEETA CRUZ, ACBC #### Testing performed at [address] [address] CBCon 01-14-2021 ABSOLUTE BAS 0.0 10*3/uL Normal 0.0-0.2 [facility] Comment on above: Performed By: #### C MPF, BHB, ACBC #### Testing performed at [address] [address] ABSOLUTE EOS 0.20 10*3/uL Normal 0.0-0.7 [facility] Comment on above: Performed By: #### C MPF, BHB, ACBC #### Testing performed at [address] [address] ABSOLUTE NEUTROPHIL COUNT 4.9 10*3/uL Normal 1.4-6.5 [facility] Comment on above: Performed By: #### C MPF, BHB, ACBC #### Testing performed at [address] [address] Basophils/100 WBC (Bld) 0.4 % Normal 0.0-2.0 [facility] Comment on above: Performed By: #### C MPF, BHB, ACBC #### Testing performed at [address] [address] DTYPE AUTO DIFF Normal [facility] Comment on above: Performed By: #### C MPF, BHB, ACBC #### Testing performed at [address] [address] Eosinophils/100 WBC (Bld) 2.3 % Normal 0.0-11.0 [facility] Comment on above: Performed By: #### C MPF, BHB, ACBC #### Testing performed at [address] [address] Lymphocytes (Bld) [#/Vol] 2.10 10*3/uL Normal 1.2-3.4 [facility] Comment on above: Performed By: #### C MPF, BHB, ACBC #### Testing performed at [address] [address] Lymphocytes/100 WBC (Bld) 27.2 % Normal 20.0-55.0 [facility] Comment on above: Performed By: #### C MPF, BHB, ACBC #### Testing performed at [address] [address] Monocytes (Bld) [#/Vol] 0.6 10*3/uL Normal 0.0-0.7 [facility] Comment on above: Performed By: #### C MPF, BHB, ACBC #### Testing performed at [facility] [place] [facility] [address] [place] [address] Monocytes/100 WBC (Bld) 7.5 % Normal 0.0-10.0 [facility] Comment on above: Performed By: #### C MPF BHB, ACBC #### Testing performed at [address] [address] Neutrophils/100 WBC (Bld) 62.6 % Normal 37.0-75.0 [facility] Comment on above: Performed By: #### C MPF BHB, ACBC #### Testing performed at [address] [address] Erythrocyte distribution width (RBC) [Ratio] 15.6 % High 11.5-14.5 [facility] Comment on above: Performed By: #### C MPF BHB, ACBC #### Testing performed at [address] [address] Hematocrit (Bld) [Volume fraction] 32.7 % Low 36.0-48.0 [facility] Comment on above: Performed By: #### C MPF BHB, ACBC #### Testing performed at [address] [address] Hemoglobin (Bld) [Mass/Vol] 10.8 g/dL Low 12.0-16.0 [facility] Comment on above: Performed By: #### C MPF BHB, ACBC #### Testing performed at [address] [address] MCH (RBC) [Entitic mass] 27.3 pg Normal 26.0-35.0 [facility] Comment on above: Performed By: #### C MPF, BHB, ACBC #### Testing performed at [address] [address] MCHC (RBC) [Mass/Vol] 33.1 g/dL Normal 27.0-37.0 [facility] Comment on above: Performed By: #### C MPF, BHB, ACBC #### Testing performed at [address] [address] MCV (RBC) [Entitic vol] 82.5 fL Normal 80.0-100.0 [facility] Comment on above: Performed By: #### C MPF, BHB, ACBC #### Testing performed at [address] [address] Platelet mean volume (Bld) [Entitic vol] 7.1 fL Low 7.4-11.0 [facility] Comment on above: Performed By: #### C MPF, BHB, ACBC #### Testing performed at [address] [address] Platelets (Bld) [#/Vol] 359 10*3/uL Normal 130.0-400.0 [facility] Comment on above: Performed By: #### C MPF, BHB, ACBC #### Testing performed at [address] [address] RBC (Bld) [#/Vol] 3.96 10*6/uL Low 4.0-5.4 [facility] Comment on above: Performed By: #### C MPF, BHB, ACBC #### Testing performed at [address] [address] WBC (Bld) [#/Vol] 7.8 10*3/uL Normal 3.6-11.0 [facility] Comment on above: Performed By: #### C MPF, BHB, ACBC #### Testing performed at [address] [address] CMP FASTINGon 01-14-2021 A:G RATIO 1.0 RATIO Low 1.3-2.2 [facility] Comment on above: Performed By: #### C MPF, BHB, ACBC #### Testing performed at [address] [address] ALBUMIN 3.9 G/dl Normal 3.5-5.0 [facility] Comment on above: Performed By: #### C MPF, BHB, ACBC #### Testing performed at [address] [address] ALP [Catalytic activity/Vol] 117 U/L Normal 38-126 [facility] Comment on above: Performed By: #### C MPF, BHB, ACBC #### Testing performed at [address] [address] ALT [Catalytic activity/Vol] 24 U/L Normal 14-54 [facility] Comment on above: Performed By: #### C MPF BHB, ACBC #### Testing performed at [address] [address] AST [Catalytic activity/Vol] 22 U/L Normal 15-41 [facility] Comment on above: Performed By: #### C MPF BHB, ACBC #### Testing performed at [address] [address] Bilirubin [Mass/Vol] 0.4 mg/dL Normal 0.2-1.2 [facility] Comment on above: Performed By: #### C MPF BHB, ACBC #### Testing performed at [address] [address] Calcium [Mass/Vol] 9.0 mg/dL Normal 8.4-10.2 [facility] Comment on above: Performed By: #### C MPF BHB, ACBC #### Testing performed at [address] [address] Chloride [Moles/Vol] 101 mmol/L Normal 98-107 [facility] Comment on above: Performed By: #### C MPF BHB, ACBC #### Testing performed at [address] [address] CO2 [Moles/Vol] 23 mmol/L Normal 22-30 [facility] Comment on above: Performed By: #### C MPF BHB, ACBC #### Testing performed at [address] [address] Creatinine [Mass/Vol] 1.40 mg/dL High 0.52-1.04 [facility] Comment on above: Performed By: #### C MPF BHB, ACBC #### Testing performed at [address] [address] EST. GFR, 50 ml/min/1.73sq.m Normal [facility] Comment on above: Performed By: #### C MPF BHB, ACBC #### Testing performed at [address] [address] EST. GFR,Non 41 ml/min/1.73sq.m Normal [facility] Comment on above: Performed By: #### C SANGEETA CRUZ ACBC #### Testing performed at [address] [address] GFR Information Average GFR for 50-5 9 years old = 93. Normal [facility] Comment on above: Result Comment: Legal Financial Specialist garfield Kidney disease, GFR = <60. Kidney failure, GFR = <15. The GFR estimate is not adjusted for extreme body surface area or acute process, nor has it been validated for women or ethnic groups other than and . Performed By: #### C SANGEETA CRUZ ACBC #### Testing performed at [address] [address] Glucose [Mass/Vol] 457 mg/dL Critically high 70-100 [facility] Comment on above: Result Comment: NORMAL <100 mg/dL PREDIABETES 101-126 mg/dL DIABETES 126 mg/dL or higher Result called to read back by: Susan WOODY 01/13/2021 @ 22:34 by CHARLES Performed By: #### C SANGEETA CRUZ ACBC #### Testing performed at [address] [address] Potassium [Moles/Vol] 4.6 mmol/L Normal 3.5-5.1 [facility] Comment on above: Performed By: #### C SANGEETA CRUZ ACCORIE #### Testing performed at [address] [address] Protein [Mass/Vol] 7.9 g/dL Normal 6.3-8.2 [facility] Comment on above: Performed By: #### C SANGEETA CRUZ ACBC #### Testing performed at [address] [address] Sodium [Moles/Vol] 134 mmol/L Low 136-145 [facility] Comment on above: Performed By: #### C ANTHONY BHB, ACBC #### Testing performed at [address] [address] Urea nitrogen [Mass/Vol] 36 mg/dL High 7-20 [facility] Comment on above: Performed By: #### C MPF, BHB, ACBC #### Testing performed at [address] [address] POCT GLUCOSEon 01-14-2021 Glucose [Mass/Vol] 391 mg/dL High 70-100 [facility] [employer]KE [employer]ING SUPERVISOR [id number] Normal [facility] Glucose [Mass/Vol] 217 mg/dL High 70-100 [facility] [employer]KE HANDLING SUPERVISOR [id number] Normal [facility] URINE MACROSCOPICon 01-15-20 21 Bilirubin Ql (U) Negative Normal NEGATIVE [facility] Comment on above: Performed By: #### U MAC, UMIC #### Testing performed at [address] [address] Clarity (U) CLEAR Normal CLEAR [facility] Comment on above: Performed By: #### U MAC, UMIC #### Testing performed at [address] [address] Color (U) YELLOW Normal YELLOW [facility] Comment on above: Performed By: #### U MAC, UMIC #### Testing performed at [address] [address] Glucose Ql (U) 500 mg/dl Abnormal NEGATIVE [facility] Comment on above: Performed By: #### U MAC, UMIC #### Testing performed at [address] [address] pH (U) 6.0 [pH] Normal 5.0-7.0 [facility] Comment on above: Performed By: #### U MAC, UMIC #### Testing performed at [address] [address] URINE HEMOGLOBIN TRACE-INTACT Abnormal NEGATIVE [facility] Comment on above: Performed By: #### U MAC, UMIC #### Testing performed at [address] [address] URINE KETONE Negative Normal NEGATIVE [facility] Comment on above: Performed By: #### U MAC, UMIC #### Testing performed at [address] [address] URINE LEUKOTEST Negative Normal NEGATIVE [facility] Comment on above: Performed By: #### U MAC, UMIC #### Testing performed at [address] [place] [address] URINE NITRATES Negative Normal NEGATIVE [facility] Comment on above: Performed By: #### U MAC, UMIC #### Testing performed at [address] [address] URINE SPEC GRAVITY 1.015 Normal 1.010-1.025 [facility] Comment on above: Performed By: #### U MAC, UMIC #### Testing performed at [address] [address] URINE TOTAL PROTEIN Negative Normal NEGATIVE [facility] Comment on above: Performed By: #### U MAC, UMIC #### Testing performed at [address] [address] Urobilinogen Qn (U) 0.2 {Rikki'U}/dL Normal 0.2-1.0 [facility] Comment on above: Performed By: #### U MAC, UMIC #### Testing performed at [address] [address] URINE MICROSCOPICon 01-15-20 21 Bacteria LM.HPF (Urine sed) [#/Area] Negative Normal NEGATIVE [facility] Comment on above: Performed By: #### U MAC, UMIC #### Testing performed at [address] [address] CASTS NONE Normal [facility] Comment on above: Performed By: #### U MAC, UMIC #### Testing performed at [address] [place] [address] CRYSTAL NONE Normal [facility] Comment on above: Performed By: #### U MAC, UMIC #### Testing performed at [address] [address] Epithelial cells LM Ql (Urine sed) 1 TO 5 Normal [facility] Comment on above: Performed By: #### U MAC, UMIC #### Testing performed at [address] [address] Mucus Ql (Urine sed) Negative Normal NEGATIVE [facility] Comment on above: Performed By: #### U MAC, UMIC #### Testing performed at [address] [place] [address] URINE COMMENT CULTURE CRITERIA NOT MET, NO CULTURE PERFORMED. Normal [facility] Comment on above: Performed By: #### U MAC, UMIC #### Testing performed at [address] [address] URINE RBC'S Negative Normal NEGATIVE [facility] Comment on above: Performed By: #### U MAC, UMIC #### Testing performed at [address] [address] URINE WBC'S Negative Normal NEGATIVE [facility] Comment on above: Performed By: #### U MAC, UMIC #### Testing performed at [address] [address] BUN CREAon 01-10-2021 Creatinine [Mass/Vol] 1.22 mg/dL High 0.50-1.20 [facility] Comment on above: Order Comment: Prior to first Gamunex Infusion and every 2 weeks if baseline CR is within normal limits. Performed By: #### B CR #### [facility] (DEFAULT) [address] [address] EST GFR, 55 mL/min/1.73sqM Low >=60 [facility] Comment on above: Order Comment: Prior to first [facility]ex Infusion and every 2 weeks if baseline CR is within normal limits. Performed By: #### B CR #### [facility] (DEFAULT) [address] [address] EST GFR,Non 45 mL/min/1.73sqM Low >=60 [facility] Comment on above: Order Comment: Prior to first [facility] and every 2 weeks if baseline CR is within normal limits. Performed By: #### B CR #### [facility] (DEFAULT) [address] [address] Urea nitrogen [Mass/Vol] 20 mg/dL Normal - [facility] Comment on above: Order Comment: Prior to first [facility] and every 2 weeks if baseline CR is within normal limits. Performed By: #### B CR #### [facility] (DEFAULT) [address] [address] Urea nitrogen/Creatinine [Mass ratio] 16 mg/mg Normal [facility] Comment on above: Order Comment: Prior to first [facility] and every 2 weeks if baseline CR is within normal limits. Performed By: #### B CR #### [facility] (DEFAULT) [address] [address] CBC AND ELECTRONIC DIFFon Basophils (Bld) [#/Vol] 10*3/uL Normal 0.00-0.15 O [facility] Comment on above: Order Comment: Prior to first [facility] and then every 2 weeks.until results within normal limits. Collect weekly if baseline is abnormal. Performed By: #### L [id number] #### [facility] (DEFAULT) [address] [address] Basophils/100 WBC (Bld) 0.4 % Normal O [facility] Comment on above: Order Comment: Prior to first [facility] and then every 2 weeks.until results within normal limits. Collect weekly if baseline is abnormal. Performed By: #### L [id number] #### [facility] (DEFAULT) [address] [address] DIFF STATUS Electronic Differential Normal [facility] Comment on above: Order Comment: Prior to first [facility] and then every 2 weeks.until results within normal limits. Collect weekly if baseline is abnormal. Performed By: #### L [id number] #### [facility] (DEFAULT) [address] [address] Eosinophils (Bld) [#/Vol] 0.16 10*3/uL Normal 0.00-0.42 [facility] Comment on above: Order Comment: Prior to first [facility] and then every 2 weeks.until results within normal limits. Collect weekly if baseline is abnormal. Performed By: #### L [id number] #### [facility] (DEFAULT) [address] [address] Eosinophils/100 WBC (Bld) 2.1 % Normal [facility] Comment on above: Order Comment: Prior to first [facility] and then every 2 weeks.until results within normal limits. Collect weekly if baseline is abnormal. Performed By: #### L [id number] #### [facility] (DEFAULT) [address] [address] Hematocrit (Bld) [Volume fraction] 32.0 % Low 34.9-44.3 [facility] Comment on above: Order Comment: Prior to first [facility] and then every 2 weeks.until results within normal limits. Collect weekly if baseline is abnormal. Performed By: #### L [id number] #### [facility] (DEFAULT) [address] [address] Hemoglobin (Bld) [Mass/Vol] 10.1 g/dL Low 11.4-15.2 [facility] Comment on above: Order Comment: Prior to first [facility] and then every 2 weeks.until results within normal limits. Collect weekly if baseline is abnormal. Performed By: #### L [id number] #### [facility] (DEFAULT) [address] [address] Immature Grans % 0.3 % Normal [facility] Comment on above: Order Comment: Prior to first [facility] and then every 2 weeks.until results within normal limits. Collect weekly if baseline is abnormal. Performed By: #### L [id number] #### [facility] (DEFAULT) [address] [address] Immature Grans Absolute <0.04 Normal <=0.09 O [facility] Comment on above: Order Comment: Prior to first [facility] and then every 2 weeks.until results within normal limits. Collect weekly if baseline is abnormal. Performed By: #### L [id number] #### [facility] (DEFAULT) [address] [address] Lymphocytes (Bld) [#/Vol] 2.23 10*3/uL Normal 1.16-3.51 [facility] Comment on above: Order Comment: Prior to first [facility] and then every 2 weeks.until results within normal limits. Collect weekly if baseline is abnormal. Performed By: #### L [id number] #### [facility] (DEFAULT) [address] [address] Lymphocytes/100 WBC (Bld) 28.8 % Normal [facility] Comment on above: Order Comment: Prior to first [facility] and then every 2 weeks.until results within normal limits. Collect weekly if baseline is abnormal. Performed By: #### L [id number] #### [facility] (DEFAULT) [address] [address] MCV (RBC) [Entitic vol] 86.0 fL Normal 79.6-97.7 [facility] Comment on above: Order Comment: Prior to first [facility] and then every 2 weeks.until results within normal limits. Collect weekly if baseline is abnormal. Performed By: #### L [id number] #### [facility] (DEFAULT) [address] [address] Mean Cell Hgb 27.2 pg Normal 25.9-33.9 [facility] Comment on above: Order Comment: Prior to first [facility] and then every 2 weeks.until results within normal limits. Collect weekly if baseline is abnormal. Performed By: #### L [id number] #### [facility] (DEFAULT) [address] [address] Mean Cell Hgb Conc 31.6 g/dL Normal 31.4-35.9 [facility] Comment on above: Order Comment: Prior to first [facility] and then every 2 weeks.until results within normal limits. Collect weekly if baseline is abnormal. Performed By: #### L [id number] #### [facility] (DEFAULT) [address] [address] Monocytes (Bld) [#/Vol] 0.38 10*3/uL Normal 0.22-0.87 [facility] Comment on above: Order Comment: Prior to first [facility] and then every 2 weeks.until results within normal limits. Collect weekly if baseline is abnormal. Performed By: #### L [id number] #### [facility] (DEFAULT) [address] [address] Monocytes/100 WBC (Bld) 4.9 % Normal O [facility] Comment on above: Order Comment: Prior to first [facility] and then every 2 weeks.until results within normal limits. Collect weekly if baseline is abnormal. Performed By: #### L [id number] #### [facility] (DEFAULT) [address] [address] Nucleated RBC 0.0 /100 WBC Normal <=0.2 [facility] Comment on above: Order Comment: Prior to first [facility] and then every 2 weeks.until results within normal limits. Collect weekly if baseline is abnormal. Performed By: #### L [id number] #### [place] (DEFAULT) [address] [address] Platelet mean volume (Bld) [Entitic vol] 9.4 fL Normal 8.5-12.2 [facility] Comment on above: Order Comment: Prior to first [facility] and then every 2 weeks.until results within normal limits. Collect weekly if baseline is abnormal. Performed By: #### L [id number] #### [facility] (DEFAULT) [address] [place] [address] Platelets (Bld) [#/Vol] 352 10*3/uL Normal 150-393 [facility] Comment on above: Order Comment: Prior to first [facility] and then every 2 weeks.until results within normal limits. Collect weekly if baseline is abnormal. Performed By: #### L [id number] #### [facility] (DEFAULT) [address] [address] RBC (Bld) [#/Vol] 3.72 10*6/uL Low 3.91-5.04 [facility] Comment on above: Order Comment: Prior to first [facility] and then every 2 weeks.until results within normal limits. Collect weekly if baseline is abnormal. Performed By: #### L [id number] #### [facility] (DEFAULT) [address] [address] RBC Distribution 15.3 % High 10.8-14.9 [facility] Comment on above: Order Comment: Prior to first [facility] and then every 2 weeks.until results within normal limits. Collect weekly if baseline is abnormal. Performed By: #### L [id number] #### [facility] (DEFAULT) [address] [address] Segs + Bands Auto 63.5 % Normal [place] [facility] Comment on above: Order Comment: Prior to first [facility] and then every 2 weeks.until results within normal limits. Collect weekly if baseline is abnormal. Performed By: #### L [id number] #### [facility] (DEFAULT) [address] [address] Segs + Bands,Absolute Auto 4.93 K/uL Normal 1.64-7.28 [facility] Comment on above: Order Comment: Prior to first [facility] and then every 2 weeks.until results within normal limits. Collect weekly if baseline is abnormal. Performed By: #### L [id number] #### [facility] (DEFAULT) [address] [address] WBC (Bld) [#/Vol] 7.75 10*3/uL Normal 3.99-11.19 [facility] Comment on above: Order Comment: Prior to first [facility] and then every 2 weeks.until results within normal limits. Collect weekly if baseline is abnormal. Performed By: #### L [id number] #### [facility] (DEFAULT) [address] [address] BUN CREAon 12-27-2020 Creatinine [Mass/Vol] 1.10 mg/dL Normal 0.50-1.20 [facility] Comment on above: Order Comment: Prior to first [facility] and every 2 weeks if baseline CR is within normal limits. Performed By: #### B CR #### [facility] (DEFAULT) [address] [address] EST GFR, >=60 Normal >=60 [facility] Comment on above: Order Comment: Prior to first [facility] and every 2 weeks if baseline CR is within normal limits. Performed By: #### B CR #### [facility] (DEFAULT) [address] [place] [address] EST GFR,Non 51 mL/min/1.73sqM Low >=60 [facility] Comment on above: Order Comment: Prior to first [facility] and every 2 weeks if baseline CR is within normal limits. Performed By: #### B CR #### [facility] (DEFAULT) [address] [place] [address] Urea nitrogen [Mass/Vol] 26 mg/dL High 09-07 [facility] Comment on above: Order Comment: Prior to first [facility] and every 2 weeks if baseline CR is within normal limits. Performed By: #### B CR #### [facility] (DEFAULT) [address] [place] [address] Urea nitrogen/Creatinine [Mass ratio] 24 mg/mg Normal [facility] Comment on above: Order Comment: Prior to first [facility] and every 2 weeks if baseline CR is within normal limits. Performed By: #### B CR #### [facility] (DEFAULT) [address] [place] [address] CBC AND ELECTRONIC DIFFon Basophils (Bld) [#/Vol] 10*3/uL Normal 0.00-0.15 O [facility] Comment on above: Order Comment: Prior to first [facility] and every 2 weeks if baseline CR is within normal limits. Performed By: #### B CR #### [facility] (DEFAULT) [address] [place] [address] Basophils/100 WBC (Bld) 0.3 % Normal O [facility] Comment on above: Order Comment: Prior to first [facility] and every 2 weeks if baseline CR is within normal limits. Performed By: #### B CR #### [facility] (DEFAULT) [address] [place] [address] DIFF STATUS Electronic Differential Normal [facility] Comment on above: Order Comment: Prior to first [facility] and every 2 weeks if baseline CR is within normal limits. Performed By: #### B CR #### [facility] (DEFAULT) [address] [place] [address] Eosinophils (Bld) [#/Vol] 0.20 10*3/uL Normal 0.00-0.42 [facility] Comment on above: Order Comment: Prior to first [facility] and every 2 weeks if baseline CR is within normal limits. Performed By: #### B CR #### [facility] (DEFAULT) [address] [address] Eosinophils/100 WBC (Bld) 2.0 % Normal [facility] Comment on above: Order Comment: Prior to first [facility] and every 2 weeks if baseline CR is within normal limits. Performed By: #### B CR #### [facility] (DEFAULT) [address] [place] [address] Hematocrit (Bld) [Volume fraction] 31.0 % Low 34.9-44.3 [facility] Comment on above: Order Comment: Prior to first [facility] and every 2 weeks if baseline CR is within normal limits. Performed By: #### B CR #### [facility] (DEFAULT) [address] [place] [address] Hemoglobin (Bld) [Mass/Vol] 10.0 g/dL Low 11.4-15.2 [facility] Comment on above: Order Comment: Prior to first [facility] and every 2 weeks if baseline CR is within normal limits. Performed By: #### B CR #### [facility] (DEFAULT) [address] [address] Immature Grans % 0.2 % Normal [facility] Comment on above: Order Comment: Prior to first [facility] and every 2 weeks if baseline CR is within normal limits. Performed By: #### B CR #### [facility] (DEFAULT) [address] [address] Immature Grans Absolute <0.04 Normal <=0.09 O [facility] Comment on above: Order Comment: Prior to first [facility] and every 2 weeks if baseline CR is within normal limits. Performed By: #### B CR #### [facility] (DEFAULT) [address] [address] Lymphocytes (Bld) [#/Vol] 2.96 10*3/uL Normal 1.16-3.51 [facility] Comment on above: Order Comment: Prior to first [facility] and every 2 weeks if baseline CR is within normal limits. Performed By: #### B CR #### [facility] (DEFAULT) [address] [address] Lymphocytes/100 WBC (Bld) 29.9 % Normal [facility] Comment on above: Order Comment: Prior to first [facility] and every 2 weeks if baseline CR is within normal limits. Performed By: #### B CR #### [facility] (DEFAULT) [address] [address] MCV (RBC) [Entitic vol] 84.9 fL Normal 79.6-97.7 O [facility] Comment on above: Order Comment: Prior to first [facility] and every 2 weeks if baseline CR is within normal limits. Performed By: #### B CR #### [facility] (DEFAULT) [address] [address] Mean Cell Hgb 27.4 pg Normal 25.9-33.9 [facility] Comment on above: Order Comment: Prior to first [facility] and every 2 weeks if baseline CR is within normal limits. Performed By: #### B CR #### [facility] (DEFAULT) [address] [address] Mean Cell Hgb Conc 32.3 g/dL Normal 31.4-35.9 [facility] Comment on above: Order Comment: Prior to first [facility] and every 2 weeks if baseline CR is within normal limits. Performed By: #### B CR #### [facility] (DEFAULT) [address] [address] Monocytes (Bld) [#/Vol] 0.50 10*3/uL Normal 0.22-0.87 [facility] Comment on above: Order Comment: Prior to first [facility] and every 2 weeks if baseline CR is within normal limits. Performed By: #### B CR #### [facility] (DEFAULT) [address] [place] [address] Monocytes/100 WBC (Bld) 5.1 % Normal O [facility] Comment on above: Order Comment: Prior to first [facility] and every 2 weeks if baseline CR is within normal limits. Performed By: #### B CR #### [facility] (DEFAULT) [address] [address] Nucleated RBC 0.0 /100 WBC Normal <=0.2 [facility] Comment on above: Order Comment: Prior to first [facility] and every 2 weeks if baseline CR is within normal limits. Performed By: #### B CR #### [facility] (DEFAULT) [address] [address] Platelet mean volume (Bld) [Entitic vol] 9.2 fL Normal 8.5-12.2 [facility] Comment on above: Order Comment: Prior to first [facility] and every 2 weeks if baseline CR is within normal limits. Performed By: #### B CR #### [facility] (DEFAULT) [address] [place] [address] Platelets (Bld) [#/Vol] 372 10*3/uL Normal 150-393 [facility] Comment on above: Order Comment: Prior to first [facility] and every 2 weeks if baseline CR is within normal limits. Performed By: #### B CR #### [facility] (DEFAULT) [address] [address] RBC (Bld) [#/Vol] 3.65 10*6/uL Low 3.91-5.04 [facility] Comment on above: Order Comment: Prior to first [facility] and every 2 weeks if baseline CR is within normal limits. Performed By: #### B CR #### [facility] (DEFAULT) [address] [address] RBC Distribution 14.7 % Normal 10.8-14.9 [facility] Comment on above: Order Comment: Prior to first [facility] and every 2 weeks if baseline CR is within normal limits. Performed By: #### B CR #### [facility] (DEFAULT) [address] [address] Segs + Bands Auto 62.5 % Normal [place] [facility] Comment on above: Order Comment: Prior to first [facility] and every 2 weeks if baseline CR is within normal limits. Performed By: #### B CR #### [facility] (DEFAULT) [address] [address] Segs + Bands,Absolute Auto 6.18 K/uL Normal 1.64-7.28 [facility] Comment on above: Order Comment: Prior to first [facility] and every 2 weeks if baseline CR is within normal limits. Performed By: #### B CR #### [facility] (DEFAULT) [address] [address] WBC (Bld) [#/Vol] 9.89 10*3/uL Normal 3.99-11.19 [facility] Comment on above: Order Comment: Prior to first [facility] and every 2 weeks if baseline CR is within normal limits. Performed By: #### B CR #### [facility] (DEFAULT) [address] [address] OCT/HRT [place] OUon 12-28-19 21 OCT/HRT [place] OU Right Eye Quality was good. Findings include subretinal fluid. Interval change is better. Recommendation for management is to continue treatment. Left Eye Quality was good. Findings include subretinal fluid. Interval change is better. Recommendation for management is to continue treatment. Normal [facility] Apply dressingon 12-19-2020 Applied dressing [facility] Apply dressingOrdered By: St ester Aguirre on 12-19-2020 [facility] BUN CREAon 12-13-2020 Creatinine [Mass/Vol] 0.99 mg/dL Normal 0.50-1.20 [facility] Comment on above: Order Comment: Prior to first [facility] and every 2 weeks if baseline CR is within normal limits. Performed By: #### B CR #### [facility] (DEFAULT) [address] [address] EST GFR, >=60 Normal >=60 [facility] Comment on above: Order Comment: Prior to first [facility] and every 2 weeks if baseline CR is within normal limits. Performed By: #### B CR #### [facility] (DEFAULT) [address] [address] EST GFR,Non 58 mL/min/1.73sqM Low >=60 [facility] Comment on above: Order Comment: Prior to first [facility] and every 2 weeks if baseline CR is within normal limits. Performed By: #### B CR #### [facility] (DEFAULT) [address] [place] [address] Urea nitrogen [Mass/Vol] 25 mg/dL High 09-07 [facility] Comment on above: Order Comment: Prior to first [facility] and every 2 weeks if baseline CR is within normal limits. Performed By: #### B CR #### [facility] (DEFAULT) [address] [place] [address] Urea nitrogen/Creatinine [Mass ratio] 25 mg/mg Normal [facility] Comment on above: Order Comment: Prior to first [facility] and every 2 weeks if baseline CR is within normal limits. Performed By: #### B CR #### [facility] (DEFAULT) [address] [address] CBC AND ELECTRONIC DIFFon Basophils (Bld) [#/Vol] 0.04 10*3/uL Normal 0.00-0.15 [facility] Comment on above: Order Comment: Prior to first [facility] and every 2 weeks if baseline CR is within normal limits. Performed By: #### B CR #### [facility] (DEFAULT) [address] [place] [address] Basophils/100 WBC (Bld) 0.4 % Normal O [facility] Comment on above: Order Comment: Prior to first [facility] and every 2 weeks if baseline CR is within normal limits. Performed By: #### B CR #### [facility] (DEFAULT) [address] [place] [address] DIFF STATUS Electronic Differential Normal [facility] Comment on above: Order Comment: Prior to first [facility] and every 2 weeks if baseline CR is within normal limits. Performed By: #### B CR #### [facility] (DEFAULT) [address] [place] [address] Eosinophils (Bld) [#/Vol] 0.13 10*3/uL Normal 0.00-0.42 [facility] Comment on above: Order Comment: Prior to first [facility] and every 2 weeks if baseline CR is within normal limits. Performed By: #### B CR #### [facility] (DEFAULT) [address] [place] [address] Eosinophils/100 WBC (Bld) 1.4 % Normal [facility] Comment on above: Order Comment: Prior to first [facility] and every 2 weeks if baseline CR is within normal limits. Performed By: #### B CR #### [facility] (DEFAULT) [address] [place] [address] Hematocrit (Bld) [Volume fraction] 33.6 % Low 34.9-44.3 [facility] Comment on above: Order Comment: Prior to first [facility] and every 2 weeks if baseline CR is within normal limits. Performed By: #### B CR #### [facility] (DEFAULT) [address] [place] [address] Hemoglobin (Bld) [Mass/Vol] 10.6 g/dL Low 11.4-15.2 [facility] Comment on above: Order Comment: Prior to first [facility] and every 2 weeks if baseline CR is within normal limits. Performed By: #### B CR #### [facility] (DEFAULT) [address] [place] [address] Immature Grans % 0.2 % Normal [facility] Comment on above: Order Comment: Prior to first [facility] and every 2 weeks if baseline CR is within normal limits. Performed By: #### B CR #### [facility] (DEFAULT) [address] [place] [address] Immature Grans Absolute <0.04 Normal <=0.09 O [facility] Comment on above: Order Comment: Prior to first [facility] and every 2 weeks if baseline CR is within normal limits. Performed By: #### B CR #### [facility] (DEFAULT) [address] [address] Lymphocytes (Bld) [#/Vol] 2.53 10*3/uL Normal 1.16-3.51 [facility] Comment on above: Order Comment: Prior to first [facility] and every 2 weeks if baseline CR is within normal limits. Performed By: #### B CR #### [facility] (DEFAULT) [address] [address] Lymphocytes/100 WBC (Bld) 27.2 % Normal [facility] Comment on above: Order Comment: Prior to first [facility] and every 2 weeks if baseline CR is within normal limits. Performed By: #### B CR #### [facility] (DEFAULT) [address] [address] MCV (RBC) [Entitic vol] 86.4 fL Normal 79.6-97.7 O [facility] Comment on above: Order Comment: Prior to first [facility] and every 2 weeks if baseline CR is within normal limits. Performed By: #### B CR #### [facility] (DEFAULT) [address] [place] [address] Mean Cell Hgb 27.2 pg Normal 25.9-33.9 [facility] Comment on above: Order Comment: Prior to first [facility] and every 2 weeks if baseline CR is within normal limits. Performed By: #### B CR #### [facility] (DEFAULT) [address] [address] Mean Cell Hgb Conc 31.5 g/dL Normal 31.4-35.9 [facility] Comment on above: Order Comment: Prior to first [facility] and every 2 weeks if baseline CR is within normal limits. Performed By: #### B CR #### [facility] (DEFAULT) [address] [address] Monocytes (Bld) [#/Vol] 0.60 10*3/uL Normal 0.22-0.87 [facility] Comment on above: Order Comment: Prior to first [facility] and every 2 weeks if baseline CR is within normal limits. Performed By: #### B CR #### [facility] (DEFAULT) [address] [address] Monocytes/100 WBC (Bld) 6.4 % Normal O [facility] Comment on above: Order Comment: Prior to first [facility] and every 2 weeks if baseline CR is within normal limits. Performed By: #### B CR #### [facility] (DEFAULT) [address] [address] Nucleated RBC 0.0 /100 WBC Normal <=0.2 [facility] Comment on above: Order Comment: Prior to first [facility] and every 2 weeks if baseline CR is within normal limits. Performed By: #### B CR #### [facility] (DEFAULT) [address] [address] Platelet mean volume (Bld) [Entitic vol] 9.5 fL Normal 8.5-12.2 [facility] Comment on above: Order Comment: Prior to first [facility] and every 2 weeks if baseline CR is within normal limits. Performed By: #### B CR #### [facility] (DEFAULT) [address] [address] Platelets (Bld) [#/Vol] 365 10*3/uL Normal 150-393 [facility] Comment on above: Order Comment: Prior to first [facility] and every 2 weeks if baseline CR is within normal limits. Performed By: #### B CR #### [facility] (DEFAULT) [address] [place] [address] RBC (Bld) [#/Vol] 3.89 10*6/uL Low 3.91-5.04 [facility] Comment on above: Order Comment: Prior to first [facility] and every 2 weeks if baseline CR is within normal limits. Performed By: #### B CR #### [facility] (DEFAULT) [address] [address] RBC Distribution 14.5 % Normal 10.8-14.9 [facility] Comment on above: Order Comment: Prior to first [facility] and every 2 weeks if baseline CR is within normal limits. Performed By: #### B CR #### [facility] (DEFAULT) [address] [address] Segs + Bands Auto 64.4 % Normal [facility] Comment on above: Order Comment: Prior to first [facility] and every 2 weeks if baseline CR is within normal limits. Performed By: #### B CR #### [facility] (DEFAULT) [address] [address] Segs + Bands,Absolute Auto 5.99 K/uL Normal 1.64-7.28 [facility] Comment on above: Order Comment: Prior to first [facility] and every 2 weeks if baseline CR is within normal limits. Performed By: #### B CR #### [facility] (DEFAULT) [address] [address] WBC (Bld) [#/Vol] 9.31 10*3/uL Normal 3.99-11.19 [facility] Comment on above: Order Comment: Prior to first [facility] and every 2 weeks if baseline CR is within normal limits. Performed By: #### B CR #### [facility] (DEFAULT) [address] [place] [address] ESR Westergren method (Bld) [Velocity]Ordered By: Terence Martinez on 10-17-2020 ESR (Bld) [Velocity] 64 mm/h [facility] Interpretation and review of laboratory results Abnormal [facility] OCT OPTIC NERVE OUon 021 [facility] Radiology Study observation (narrative) [facility] BUN CREAon 10-03-2020 Creatinine [Mass/Vol] 1.13 mg/dL 0.50 - 1.20 mg/dL [facility] GFR/1.73 sq M.predicted MDRD (S/P/Bld) [Vol rate/Area] 50 mL/min/{1.73_m2} Low >=60 mL/min/1.73 sqM [facility] GFR/1.73 sq M.predicted MDRD (S/P/Bld) [Vol rate/Area] mL/min/{1.73_m2} >=60 mL/min/1.73 sqM [facility] Interpretation and review of laboratory results Abnormal [facility] Urea nitrogen [Mass/Vol] 20 mg/dL 7 - 22 mg/dL [facility] Urea nitrogen/Creatinine [Mass ratio] 18 mg/mg [facility] CBC AND ELECTRONIC DIFFon Basophils (Bld) [#/Vol] 10*3/uL 0.00 - 0.15 K/uL [facility] Basophils/100 WBC (Bld) 0.3 % O [facility] DIFF STATUS Electronic Differential [facility] Eosinophils (Bld) [#/Vol] 0.16 10*3/uL 0.00 - 0.42 K/uL [facility] Eosinophils/100 WBC (Bld) 2.1 % [facility] Erythrocyte distribution width (RBC) [Ratio] 14.0 % 10.8 - 14.9 % [facility] Hematocrit (Bld) [Volume fraction] 33.7 % Low 34.9 - 44.3 % [facility] Hemoglobin (Bld) [Mass/Vol] 10.3 g/dL Low 11.4 - 15.2 g/dL [facility] Immature granulocytes (Bld) [#/Vol] 10*3/uL <=0.09 K/uL [facility] Immature granulocytes/100 WBC (Bld) 0.3 % [facility] Interpretation and review of laboratory results Abnormal [facility] Lymphocytes (Bld) [#/Vol] 2.21 10*3/uL 1.16 - 3.51 K/uL [facility] Lymphocytes/100 WBC (Bld) 29.3 % [facility] MCH (RBC) [Entitic mass] 27.5 pg 25.9 - 33.9 pg [facility] MCHC (RBC) [Mass/Vol] 30.6 g/dL Low 31.4 - 35.9 g/dL [facility] MCV (RBC) [Entitic vol] 90.1 fL 79.6 - 97.7 fL [facility] Monocytes (Bld) [#/Vol] 0.46 10*3/uL 0.22 - 0.87 K/uL [facility] Monocytes/100 WBC (Bld) 6.1 % [facility] Neutrophils (Bld) [#/Vol] 4.66 10*3/uL 1.64 - 7.28 K/uL [facility] Nucleated RBC/100 WBC (Bld) [Ratio] 0.0 % <=0.2 /100 WBC [facility] Platelet mean volume (Bld) [Entitic vol] 9.5 fL 8.5 - 12.2 fL [facility] Platelets (Bld) [#/Vol] 357 10*3/uL 150 - 393 K/uL [facility] RBC (Bld) [#/Vol] 3.74 10*6/uL Low [facility] Segmented neutrophils/100 WBC (Bld) 61.9 % [facility] WBC (Bld) [#/Vol] 7.53 10*3/uL 3.99 - 11.19 K/uL [facility] XR MYELOMA SURVEYon 09-27-19 IMPRESSION: No discrete lytic lesions or pathologic fractures. 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 [facility] Ira Gonzalez MD - 09/26/2020 EXAM: [...] No discrete lytic lesions or pathologic fractures. [facility] Radiology Study observation (narrative) [facility] XR MYELOMA SURVEYOrdered By: Ira Gonzalez on 09-26-2020 [facility] Work Phone: BUN CREAon 09-21-2020 Creatinine [Mass/Vol] 1.19 mg/dL 0.50 - 1.20 mg/dL [facility] GFR/1.73 sq M.predicted MDRD (S/P/Bld) [Vol rate/Area] 47 mL/min/{1.73_m2} Low >=60 mL/min/1.73 sqM [facility] GFR/1.73 sq M.predicted MDRD (S/P/Bld) [Vol rate/Area] 57 mL/min/{1.73_m2} Low >=60 mL/min/1.73 sqM [facility] Interpretation and review of laboratory results Abnormal [facility] Urea nitrogen [Mass/Vol] 26 mg/dL High 7 - 22 mg/dL [facility] Urea nitrogen/Creatinine [Mass ratio] 22 mg/mg [facility] CBC AND ELECTRONIC DIFFon Basophils (Bld) [#/Vol] 0.05 10*3/uL 0.00 - 0.15 K/uL [facility] Basophils/100 WBC (Bld) 0.6 % O [facility] DIFF STATUS Electronic Differential [facility] Eosinophils (Bld) [#/Vol] 0.24 10*3/uL 0.00 - 0.42 K/uL [facility] Eosinophils/100 WBC (Bld) 2.8 % [facility] Erythrocyte distribution width (RBC) [Ratio] 13.9 % 10.8 - 14.9 % [facility] Hematocrit (Bld) [Volume fraction] 33.5 % Low 34.9 - 44.3 % [facility] Hemoglobin (Bld) [Mass/Vol] 10.7 g/dL Low 11.4 - 15.2 g/dL [facility] Immature granulocytes (Bld) [#/Vol] 10*3/uL <=0.09 K/uL [facility] Immature granulocytes/100 WBC (Bld) 0.2 % [facility] Interpretation and review of laboratory results Abnormal [facility] Lymphocytes (Bld) [#/Vol] 2.63 10*3/uL 1.16 - 3.51 K/uL [facility] Lymphocytes/100 WBC (Bld) 30.6 % [facility] MCH (RBC) [Entitic mass] 28.1 pg 25.9 - 33.9 pg [facility] MCHC (RBC) [Mass/Vol] 31.9 g/dL 31.4 - 35.9 g/dL [facility] MCV (RBC) [Entitic vol] 87.9 fL 79.6 - 97.7 fL [facility] Monocytes (Bld) [#/Vol] 0.50 10*3/uL 0.22 - 0.87 K/uL [facility] Monocytes/100 WBC (Bld) 5.8 % O [facility] Neutrophils (Bld) [#/Vol] 5.15 10*3/uL 1.64 - 7.28 K/uL [facility] Nucleated RBC/100 WBC (Bld) [Ratio] 0.0 % <=0.2 /100 WBC [facility] Platelet mean volume (Bld) [Entitic vol] 9.2 fL 8.5 - 12.2 fL [facility] Platelets (Bld) [#/Vol] 377 10*3/uL 150 - 393 K/uL [facility] RBC (Bld) [#/Vol] 3.81 10*6/uL Low [facility] Segmented neutrophils/100 WBC (Bld) 60.0 % [facility] WBC (Bld) [#/Vol] 8.59 10*3/uL 3.99 - 11.19 K/uL [facility] CBC(NO DIFF)on 09-01-2020 Erythrocyte distribution width (RBC) [Ratio] 15.0 % High 11.5-14.5 [facility] Comment on above: Performed By: #### H EMOG, CMPF, LIP2, RTSH, T42 #### Testing performed at [address] [address] Hematocrit (Bld) [Volume fraction] 39.9 % Normal 36.0-48.0 [facility] Comment on above: Performed By: #### H EMOG, CMPF, LIP2, RTSH, T42 #### Testing performed at [address] [address] Hemoglobin (Bld) [Mass/Vol] 13.3 g/dL Normal 12.0-16.0 [facility] Comment on above: Performed By: #### H EMOG, CMPF, LIP2, RTSH, T42 #### Testing performed at [address] [address] MCH (RBC) [Entitic mass] 28.3 pg Normal 26.0-35.0 [facility] Comment on above: Performed By: #### H EMOG, CMPF, LIP2, RTSH, T42 #### Testing performed at [address] [address] MCHC (RBC) [Mass/Vol] 33.4 g/dL Normal 27.0-37.0 [facility] Comment on above: Performed By: #### H EMOG, CMPF, LIP2, RTSH, T42 #### [place] [address] MCV (RBC) [Entitic vol] 84.7 fL Normal 80.0-100.0 [facility] Comment on above: Performed By: #### H EMOG, CMPF, LIP2, RTSH, T42 #### [place] [address] Platelet mean volume (Bld) [Entitic vol] 6.9 fL Low 7.4-11.0 [facility] Comment on above: Result Comment: Test ing performed at [place] [address] Performed By: #### H EMOG, CMPF, LIP2, RTSH, T42 #### [place] [address] Platelets (Bld) [#/Vol] 275 10*3/uL Normal 130.0-400.0 [facility] Comment on above: Performed By: #### H EMOG, CMPF, LIP2, RTSH, T42 #### [place] [address] RBC (Bld) [#/Vol] 4.72 10*6/uL Normal 4.0-5.4 [facility] Comment on above: Performed By: #### H EMOG, CMPF, LIP2, RTSH, T42 #### [place] [address] WBC (Bld) [#/Vol] 6.7 10*3/uL Normal 3.6-11.0 [facility] Comment on above: Performed By: #### H EMOG, CMPF, LIP2, RTSH, T42 #### [place] [address] CMP FASTINGon 09-01-2020 A:G RATIO 1.2 RATIO Low 1.3-2.2 [facility] Comment on above: Performed By: #### H EMOG, CMPF, LIP2, RTSH, T42 #### Testing performed at [address] [address] ALBUMIN 4.1 G/dl Normal 3.5-5.0 [facility] Comment on above: Performed By: #### H EMOG, CMPF, LIP2, RTSH, T42 #### Testing performed at [place] [id number] ALP [Catalytic activity/Vol] 103 U/L Normal 38-126 [facility] Comment on above: Performed By: #### H EMOG, CMPF, LIP2, RTSH, T42 #### Testing performed at [address] [address] ALT [Catalytic activity/Vol] 17 U/L Normal <35 [facility] Comment on above: Performed By: #### H EMOG, CMPF, LIP2, RTSH, T42 #### Testing performed at [place] [id number] AST [Catalytic activity/Vol] 23 U/L Normal 14-36 [facility] Comment on above: Performed By: #### H EMOG, CMPF, LIP2, RTSH, T42 #### Testing performed at [address] [address] Bilirubin [Mass/Vol] 0.1 mg/dL Low 0.2-1.3 [facility] Comment on above: Performed By: #### H EMOG, CMPF, LIP2, RTSH, T42 #### Testing performed at [address] [address] Calcium [Mass/Vol] 9.2 mg/dL Normal 8.4-10.2 [facility] Comment on above: Performed By: #### H EMOG, CMPF, LIP2, RTSH, T42 #### Testing performed at [address] [address] Chloride [Moles/Vol] 108 mmol/L High 98-107 [facility] Comment on above: Result Comment: Plea se note: Triglyceride levels of 600mg/dL or higher may positively bias chloride results by approximately 2.1 mmol Performed By: #### H EMOG, CMPF, LIP2, RTSH, T42 #### [place] [address] CO2 [Moles/Vol] 23 mmol/L Normal 22-30 [facility] Comment on above: Performed By: #### H EMOG, CMPF, LIP2, RTSH, T42 #### [place] [address] Creatinine [Mass/Vol] 1.00 mg/dL Normal 0.7-1.2 [facility] Comment on above: Performed By: #### H EMOG, CMPF, LIP2, RTSH, T42 #### [place] [address] EST. GFR, >60 Normal [facility] Comment on above: Performed By: #### H EMOG, CMPF, LIP2, RTSH, T42 #### [place] [address] EST. GFR,Non >60 Normal [facility] Comment on above: Performed By: #### H EMOG, CMPF, LIP2, RTSH, T42 #### [place] [address] GFR Information Average GFR for 50-5 9 years old = 93. Normal [facility] Comment on above: Result Comment: [employer] [place] Kidney disease, GFR = <60. Kidney failure, GFR = <15. The GFR estimate is not adjusted for extreme body surface area or acute process, nor has it been validated for women or ethnic groups other than and . Testing performed at [place] [address] Performed By: #### H EMOG, CMPF, LIP2, RTSH, T42 #### [place] [address] Glucose [Mass/Vol] 193 mg/dL High 70-100 [facility] Comment on above: Result Comment: NORMAL <100 mg/dL PREDIABETES 101-126 mg/dL DIABETES 126 mg/dL or higher Performed By: #### H EMOG, CMPF, LIP2, RTSH, T42 #### [place] [address] Potassium [Moles/Vol] 5.4 mmol/L High 3.5-5.1 [facility] Comment on above: Performed By: #### H EMOG, CMPF, LIP2, RTSH, T42 #### [place] [address] Protein [Mass/Vol] 7.4 g/dL Normal 6.3-8.2 [facility] Comment on above: Performed By: #### H EMOG, CMPF, LIP2, RTSH, T42 #### [place] [address] Sodium [Moles/Vol] 140 mmol/L Normal 137-145 [facility] Comment on above: Performed By: #### H EMOG, CMPF, LIP2, RTSH, T42 #### [place] [address] Urea nitrogen [Mass/Vol] 19 mg/dL Normal 7-20 [facility] Comment on above: Performed By: #### H EMOG, CMPF, LIP2, RTSH, T42 #### [place] [address] FREE T4on 09-01-2020 Free T4 [Mass/Vol] 1.01 ng/dL Normal 0.78-2.19 [facility] Comment on above: Result Comment: Test ing performed at [place] [address] Performed By: #### H EMOG, CMPF, LIP2, RTSH, T42 #### [place] [address] HEMOGLOBIN A1Con 09-01-2020 Glucose [Mass/Vol] 232 mg/dL Normal [facility] Comment on above: Result Comment: Test ing performed at [place] [address] Performed By: #### H A1CT #### Testing performed at [address] [address] HbA1c (Bld) [Mass fraction] 9.7 % High 0-6 [facility] Comment on above: Result Comment: NORMAL <5.7% PREDIABETES 5.7-6.4% DIABETES 6.5% OR HIGHER Performed By: #### H A1CT #### Testing performed at [address] [address] LIPID PROFILEon 09-01-2020 Cholesterol [Mass/Vol] 232 mg/dL High 107-217 [facility] Comment on above: Performed By: #### H EMOG, CMPF, LIP2, RTSH, T42 #### Testing performed at [place] [id number] Cholesterol in HDL [Mass/Vol] 51 mg/dL Normal 33-75 [facility] Comment on above: Performed By: #### H EMOG, CMPF, LIP2, RTSH, T42 #### Testing performed at [place] [id number] Cholesterol in LDL [Mass/Vol] 154 mg/dL Normal [facility] Comment on above: Performed By: #### H EMOG, CMPF, LIP2, RTSH, T42 #### Testing performed at [place] [id number] Cholesterol in VLDL [Mass/Vol] 27 mg/dL High 5.0-25 [facility] Comment on above: Performed By: #### H EMOG, CMPF, LIP2, RTSH, T42 #### Testing performed at [address] [address] Cholesterol.total/Erika sterol in HDL [Mass ratio] 4.55 {ratio} Normal [facility] Comment on above: Result Comment: RISK TOTAL/HDL RATIO MEN WOMEN 1/2 AVERAGE 3.43 3.27 AVERAGE 4.97 4.44 2X AVERAGE 9.55 7.05 3X AVERAGE 23.99 11.04 Testing performed at [place] [address] Performed By: #### H EMOG, CMPF, LIP2, RTSH, T42 #### [place] [address] Triglyceride [Mass/Vol] 133 mg/dL Normal 0-150 [facility] Comment on above: Performed By: #### H EMOG, CMPF, LIP2, RTSH, T42 #### [place] [address] MALB/CREAT RATIO,URINEon MALB/CREAT RATIO,URINE 30.9 mg MALB/g CREAT High 1.3 -30.0 [facility] Comment on above: Result Comment: Test ing performed at [place] [address] Performed By: #### M CRAT #### [place] [address] MICROALBUMIN,RANDOM URINE 23.6 mg/L High 0-16.7 [facility] Comment on above: Performed By: #### M CRAT #### [place] [address] URINE CREATININE RANDOM 76.3 MG/DL Normal [facility] Comment on above: Result Comment: NO N ORMAL VALUES ESTABLISHED FOR RANDOM SPECIMENS Performed By: #### M CRAT #### [place] [address] TSH,REFLEX FREE T4on 021 TSH,REFLEX FREE T4 6.890 uIU/ML High 0.46-4.68 [facility] Comment on above: Result Comment: Test ing performed at [place] [address] Performed By: #### H EMOG, CMPF, LIP2, RTSH, T42 #### [place] [address] CMP FASTINGon 05-15-2020 A:G RATIO 1.2 RATIO Low 1.3-2.2 [facility] Comment on above: Performed By: #### H EMOG, CMPF, LIP2, RTSH, T42 #### Testing performed at [place] [id number] ALBUMIN 4.1 G/dl Normal 3.5-5.0 [facility] Comment on above: Performed By: #### H EMOG, CMPF, LIP2, RTSH, T42 #### [place] [address] ALP [Catalytic activity/Vol] 103 U/L Normal 38-126 [facility] Comment on above: Performed By: #### H EMOG, CMPF, LIP2, RTSH, T42 #### [place] [address] ALT [Catalytic activity/Vol] 15 U/L Normal <35 [facility] Comment on above: Performed By: #### H EMOG, CMPF, LIP2, RTSH, T42 #### [place] [address] AST [Catalytic activity/Vol] 42 U/L High 14-36 [facility] Comment on above: Performed By: #### H EMOG, CMPF, LIP2, RTSH, T42 #### Testing performed at [place] [id number] Bilirubin [Mass/Vol] 0.2 mg/dL Normal 0.2-1.3 [facility] Comment on above: Performed By: #### H EMOG, CMPF, LIP2, RTSH, T42 #### Testing performed at [place] [id number] Calcium [Mass/Vol] 9.3 mg/dL Normal 8.4-10.2 [facility] Comment on above: Performed By: #### H EMOG, CMPF, LIP2, RTSH, T42 #### Testing performed at [place] [id number] Chloride [Moles/Vol] 111 mmol/L High 98-107 [facility] Comment on above: Result Comment: Vasyl hickman note: Triglyceride levels of 600mg/dL or higher may positively bias chloride results by approximately 2.1 mmol Performed By: #### H EMOG, CMPF, LIP2, RTSH, T42 #### [place] [address] CO2 [Moles/Vol] 17 mmol/L Critically low 22-30 [facility] Comment on above: Result Comment: CALL ED TO AND READ BACK BY DAVE CHATTERJEE AT 1115 ON 05.15.2020 Performed By: #### H EMOG, CMPF, LIP2, RTSH, T42 #### [place] [address] Creatinine [Mass/Vol] 1.10 mg/dL Normal 0.7-1.2 [facility] Comment on above: Performed By: #### H EMOG, CMPF, LIP2, RTSH, T42 #### [place] [address] EST. GFR, >60 Normal [facility] Comment on above: Performed By: #### H EMOG, CMPF, LIP2, RTSH, T42 #### [place] [address] EST. GFR,Non 54 ml/min/1.73sq.m Normal [facility] Comment on above: Performed By: #### H EMOG, CMPF, LIP2, RTSH, T42 #### [place] [address] GFR Information Average GFR for 50-5 9 years old = 93. Normal [facility] Comment on above: Result Comment: [employer] [place] Kidney disease, GFR = <60. Kidney failure, GFR = <15. The GFR estimate is not adjusted for extreme body surface area or acute process, nor has it been validated for women or ethnic groups other than and . Testing performed at [place] [address] Performed By: #### H EMOG, CMPF, LIP2, RTSH, T42 #### [place] [address] Glucose [Mass/Vol] 190 mg/dL High 70-100 [facility] Comment on above: Result Comment: NORMAL <100 mg/dL PREDIABETES 101-126 mg/dL DIABETES 126 mg/dL or higher Performed By: #### H EMOG, CMPF, LIP2, RTSH, T42 #### [place] [address] Potassium [Moles/Vol] 3.7 mmol/L Normal 3.5-5.1 [facility] Comment on above: Performed By: #### H EMOG, CMPF, LIP2, RTSH, T42 #### [place] [address] Protein [Mass/Vol] 7.6 g/dL Normal 6.3-8.2 [facility] Comment on above: Performed By: #### H EMOG, CMPF, LIP2, RTSH, T42 #### [place] [address] Sodium [Moles/Vol] 138 mmol/L Normal 137-145 [facility] Comment on above: Performed By: #### H EMOG, CMPF, LIP2, RTSH, T42 #### [place] [address] Urea nitrogen [Mass/Vol] 24 mg/dL High 7-20 [facility] Comment on above: Performed By: #### H EMOG, CMPF, LIP2, RTSH, T42 #### [place] [address] HEMOGLOBIN A1Con 05-15-2020 Glucose [Mass/Vol] 240 mg/dL Normal [facility] Comment on above: Result Comment: Test ing performed at [place] [address] Performed By: #### H EMOG, CMPF, LIP2, RTSH, T42 #### [place] [address] HbA1c (Bld) [Mass fraction] 10.0 % High 0-6 [facility] Comment on above: Result Comment: NORMAL <5.7% PREDIABETES 5.7-6.4% DIABETES 6.5% OR HIGHER Performed By: #### H EMOG, CMPF, LIP2, RTSH, T42 #### Testing performed at [address] [address] LIPID PROFILEon 05-15-2020 Cholesterol [Mass/Vol] 228 mg/dL High 107-217 [facility] Comment on above: Performed By: #### H EMOG, CMPF, LIP2, RTSH, T42 #### Testing performed at [address] [address] Cholesterol in HDL [Mass/Vol] 36 mg/dL Normal 33-75 [facility] Comment on above: Performed By: #### H EMOG, CMPF, LIP2, RTSH, T42 #### Testing performed at [address] [address] Cholesterol in LDL [Mass/Vol] 161 mg/dL Normal [facility] Comment on above: Performed By: #### H EMOG, CMPF, LIP2, RTSH, T42 #### Testing performed at [address] [address] Cholesterol in VLDL [Mass/Vol] 31 mg/dL High 5.0-25 [facility] [facility] Comment on above: Performed By: #### H EMOG, CMPF, LIP2, RTSH, T42 #### Testing performed at [address] [address] Cholesterol.total/Erika sterol in HDL [Mass ratio] 6.33 {ratio} Normal [facility] Comment on above: Result Comment: RISK TOTAL/HDL RATIO MEN WOMEN 1/2 AVERAGE 3.43 3.27 AVERAGE 4.97 4.44 2X AVERAGE 9.55 7.05 3X AVERAGE 23.99 11.04 Testing performed at [place], [place] [address] Performed By: #### H EMOG, CMPF, LIP2, RTSH, T42 #### Testing performed at [address] [address] Triglyceride [Mass/Vol] 157 mg/dL High 0-150 [facility] Comment on above: Performed By: #### H EMOG, CMPF, LIP2, RTSH, T42 #### Testing performed at [place] [id number] MALB/CREAT RATIO,URINEon MALB/CREAT RATIO,URINE 18.8 mg MALB/g CREAT Normal 1.3 -30.0 [facility] Comment on above: Result Comment: Test ing performed at [place] [address] Performed By: #### M CRAT #### [place] [address] MICROALBUMIN,RANDOM URINE 9.3 mg/L Normal 0-16.7 [facility] Comment on above: Performed By: #### M CRAT #### [place] [address] URINE CREATININE RANDOM 49.4 MG/DL Normal [facility] Comment on above: Result Comment: NO N ORMAL VALUES ESTABLISHED FOR RANDOM SPECIMENS Performed By: #### M CRAT #### Testing performed at [place] [id number] XR RIBS LT PA Boby 0 XR [...] by: LUIS ANDRES Date: 2020-01-27 13:26 Normal [facility] XR FINGER MIN 2 VIEWSon 11-0 XR FINGER MIN 2 VIEWS PROCEDURE: XR [...] by: LUIS ANDRES Date: 2019-12-22 10:13 Normal [facility] BLOOD UREA NITROGENon 2019 Urea nitrogen [Mass/Vol] 16 mg/dL Normal 09-05 [facility] CREATININE,SERUMon 0 Creatinine [Mass/Vol] Average GFR for 50 -59 years old = 93. Normal [facility] Comment on above: Result Comment: Legal Financial Specialist garfield Kidney disease, GFR = <60. Kidney failure, GFR = <15. The GFR estimate is not adjusted for extreme body surface area or acute process, nor has it been validated for women or ethnic groups other than and . Creatinine [Mass/Vol] mg/dL Normal [facility] Creatinine [Mass/Vol] 52 ml/min/1.73sq.m [facility] Creatinine [Mass/Vol] 1.14 mg/dL Normal 0.7-1.2 [facility] FAX REQUESTon 03-08-2019 FAX TO Normal [facility] BLOOD UREA NITROGENon 2019 Urea nitrogen [Mass/Vol] 23 mg/dL High 09-05 [facility] CREATININE,SERUMon 0 Creatinine [Mass/Vol] 38 ml/min/1.73sq.m Normal [facility] Creatinine [Mass/Vol] 47 ml/min/1.73sq.m [facility] Creatinine [Mass/Vol] Average GFR for 50 -59 years old = 93. Normal [facility] Comment on above: Result Comment: Legal Financial Specialist [place] Kidney disease, GFR = <60. Kidney failure, GFR = <15. The GFR estimate is not adjusted for extreme body surface area or acute process, nor has it been validated for women or ethnic groups other than and . Creatinine [Mass/Vol] 1.49 mg/dL High 0.7-1.2 [facility] FAX REQUESTon 03-01-2019 FAX TO Normal [facility] US DUPLEX EXTREMITY DVT LEFT on [...] 2.1 cm and may be reactive. Normal [facility] Culture,Bacterialon 01-06-20 18 Culture,Bacterial Test Name: Culture,Bacterial [...] 10 F Vancomycin S 1 F Normal [facility] Comment on above: Performed By: #### C ULT ####Unless otherwise noted, all testing performed by [facility] [employer] [facility] [facility] Center[facility]rol[facility], [place] [phone]: [id number] Director: Skylar Niño M.D. Progress Noteon 12-16-2017 Protein mass conc [facility] [address] [facility] [place] [address] NAME MEG GEORGES [id number] 1965 DATE PROGRESS NOTE Meg is seen [...] will show her how to use it. PILI GILLIAM DPM D 12/16/2017 11:25 [id number] T 12/16/2017 15:16 BJZ/MODL Electronically Signed By Pili Gilliam DPM on 17 Dec 2017 19:19:18 GMT Normal [facility] Culture,Bacterialon 12-03-19 18 Culture,Bacterial Test Name: Culture,Bacterial Site: LEFT FOOT Culture Status: Final Culture Report: Normal Rob Gram Stain: No WBC's No Squamous Epithelial Cells No Organisms Seen Micro Source: Wound drainage Normal [facility] Comment on above: Performed By: #### C ULT ####Unless otherwise noted, all testing performed by [facility] [place], [place] [phone]: [id number] Director: Skylar Niño M.D. MRI LOWER EXT JOINT W/O CONT on 11-25-2017 MRI LOWER EXT JOINT W/O CONT Final Report Accession No: [id number] Performed: Nov 25 2017 8:32AM Examination: [...] NICHOLS M.D. Trans: n/a : cc: Normal [facility] Culture,Bacterialon 11-04-19 18 Culture,Bacterial Test Name: [...] F Trimeth/Sulfa S <= 20 F Normal [facility] Comment on above: Performed By: #### C ULT ####Unless otherwise noted, all testing performed by [facility].[place], [place] [phone]: [id number] Director: Skylar Niño M.D. Progress Noteon 08-29-2017 Protein mass conc [facility] [address] [facility] [place] [address] NAME MEG GEORGES [facility] [id number] 1965 DATE 08/29/2017 PROGRESS NOTE Ms. Georges [...] [facility]. MARK MILLER 08/29/2017 18:22 [id number] T 08/30/2017 08:46 KMH/MODL Electronically Signed By Mark Anthony Mcdonald Dpm on 05 Sep 2017 23:32:42 GMT Normal [facility] Culture,Bacterialon 08-15-19 18 Culture,Bacterial Test Name: Culture,Bacterial Site: Left 1st MPJ ulcer/ celluli Culture Status: Final Culture Report: No Growth - Day 2 Gram Stain: Rare WBC's Few RBC's No Organisms Seen Micro Source: Wound Normal [facility] Comment on above: Performed By: #### C ULT #### Unless otherwise noted, all testing performed by [facility] [employer] [facility] [address] [facility] [address] [place] [address] CLIA: [id number] Mailroom Associate: Skylar Niño M.D. Progress Noteon 06-13-2017 Protein mass conc [facility] [address] [facility] [place] [address] NAME MEG GEORGES [facility] [id number] 1965 DATE 06/13/2017 PROGRESS NOTE SUBJECTIVE Ms. [...] She related understanding. MARK MILLER 06/13/2017 10:44 [id number] T 06/13/2017 11:35 KMH/MODL Electronically Signed By Mark Anthony Mcdonald Dpm on 19 Jun 2017 14:55:04 GMT Normal [facility] Consultationon 06-07-2017 Consultation [facility] [address] [place] [address] NAME MEG GEORGES [facility] [id number] 1965 DATE 04/11/2017 CONSULTATION BODY MAKER MARTHA YAN DPM REFERRING PHYSICIAN: Neri Santa [...] any complications arise. MARK ELMORE 04/11/2017 16:16 [id number] T 04/11/2017 20:46 RCI/MODL cc: Neri Santa DO Electronically Signed By Martha Yan DPM on 16 Apr 2017 22:59:57 GMT Normal [facility] Protein mass conc [facility] [address] [place] [address] NAME MEG GEORGES [facility] [id number] 1965 DATE 06/06/2017 PROGRESS NOTE PROGRESS NOTE [...] any complications arise. MARK ELMORE 06/06/2017 22:10 [id number] T 06/07/2017 08:57 RCI/MODL Electronically Signed By Martha Yan DPM on 10 Jun 2017 00:05:11 GMT Normal [facility] CBC with Diffon 06-04-2017 Basophils #/vol (Bld) 0.0 K/mcL Normal 0-0.2 [facility] Comment on above: Performed By: #### C BCDIF, CMET, EDCTNI #### Unless otherwise noted, [place] [address] CLIA: [id number] Mailroom Associate: Skylar Niño M.D. Basophils/100 WBC (Bld) 0.5 % Normal [facility] Comment on above: Performed By: #### C BCDIF, CMET, EDCTNI #### Unless otherwise noted, [place] [address] CLIA: [id number] Mailroom Associate: Skylar Niño M.D. Eosinophils #/vol (Bld) 0.2 K/mcL Normal 0-0.5 [facility] Comment on above: Performed By: #### C BCDIF, CMET, EDCTNI #### Unless otherwise noted, [place] [address] CLIA: [id number] Mailroom Associate: Skylar Niño M.D. Eosinophils/100 WBC (Bld) 2.5 % Normal [facility] Comment on above: Performed By: #### C BCDIF, CMET, EDCTNI #### Unless otherwise noted, all testing performed by [address] CLIA: [id number] Mailroom Associate: Skylar Niño M.D. Erythrocyte distribution width Ratio (RBC) 13.3 % Normal 10-14.4 [facility] Comment on above: Performed By: #### C BCDIF, CMET, EDCTNI #### Unless otherwise noted, [place] [address] CLIA: [id number] Mailroom Associate: Skylar Niño M.D. Hematocrit Volume Fraction (Bld) 39.7 % Normal 34.4-44.8 [facility] Comment on above: Performed By: #### C BCDIF, CMET, EDCTNI #### Unless otherwise noted, [place] [address] CLIA: [id number] Mailroom Associate: Skylar Niño M.D. Hemoglobin mass conc (Bld) 13.3 g/dL Normal 11.6-15.4 [facility] Comment on above: Performed By: #### C BCDIF, CMET, EDCTNI #### Unless otherwise noted, all testing performed by [address] CLIA: [id number] Mailroom Associate: Skylar Niño M.D. Lymphocytes #/vol (Bld) 4.0 K/mcL High 1.0-3.7 [facility] Comment on above: Performed By: #### C BCDIF, CMET, EDCTNI #### Unless otherwise noted, all testing performed by [address] CLIA: [id number] Mailroom Associate: Skylar Niño M.D. Lymphocytes/100 WBC (Bld) 42.6 % Normal [facility] Comment on above: Performed By: #### C BCDIF, CMET, EDCTNI #### Unless otherwise noted, all testing performed by [place] [address] CLIA: [id number] Mailroom Associate: Skylar Niño M.D. MCH Entitic mass (RBC) 30.1 pg Normal 27.9-33.9 [facility] Comment on above: Performed By: #### C BCDIF, CMET, EDCTNI #### Unless otherwise noted, [place] [address] CLIA: [id number] Mailroom Associate: Skylar Niño M.D. MCHC mass conc (RBC) 33.6 g/dL Normal 33.1-35.1 [facility] Comment on above: Performed By: #### C BCDIF, CMET, EDCTNI #### Unless otherwise noted, [place] [address] CLIA: [id number] Mailroom Associate: Skylar Niño M.D. MCV Entitic volume (RBC) 89.7 fL Normal 82.6-98.9 [facility] Comment on above: Performed By: #### C BCDIF, CMET, EDCTNI #### Unless otherwise noted, [place] [address] CLIA: [id number] Mailroom Associate: Skylar Niño M.D. Monocytes #/vol (Bld) 0.6 K/mcL Normal 0.1-0.6 [facility] Comment on above: Performed By: #### C BCDIF, CMET, EDCTNI #### Unless otherwise noted, [place] [address] CLIA: [id number] Mailroom Associate: Skylar Niño M.D. Monocytes/100 WBC (Bld) 5.9 % Normal [facility] Comment on above: Performed By: #### C BCDIF, CMET, EDCTNI #### Unless otherwise noted, [place] [address] CLIA: [id number] Mailroom Associate: Skylar Niño M.D. Neutrophils #/vol (Bld) 4.6 K/mcL Normal 1.2-6.9 [facility] Comment on above: Performed By: #### C BCDIF, CMET, EDCTNI #### Unless otherwise noted, [place] [address] CLIA: [id number] Mailroom Associate: Skylar Niño M.D. Platelet mean volume Entitic volume (Bld) 6.9 fL Low 7.0-10.6 [facility] Comment on above: Performed By: #### C BCDIF, CMET, EDCTNI #### Unless otherwise noted, [place] [address] CLIA: [id number] Mailroom Associate: Skylar Niño M.D. Platelets #/vol (Bld) 377 K/mcL Normal 162-402 [facility] Comment on above: Performed By: #### C BCDIF, CMET, EDCTNI #### Unless otherwise noted, [place] [address] CLIA: [id number] Mailroom Associate: Skylar Niño M.D. RBC #/vol (Bld) 4.42 M/mcL Normal 3.7-5.0 [facility] Comment on above: Performed By: #### C BCDIF, CMET, EDCTNI #### Unless otherwise noted, [place] [address] CLIA: [id number] Mailroom Associate: Skylar Niño M.D. Segmented Neut % 48.5 % Normal [facility] Comment on above: Performed By: #### C BCDIF, CMET, EDCTNI #### Unless otherwise noted, [place] [address] CLIA: [id number] Mailroom Associate: Skylar Niño M.D. WBC #/vol (Bld) 9.5 K/mcL Normal 3.4-10.6 [facility] Comment on above: Performed By: #### C BCDIF, CMET, EDCTNI #### Unless otherwise noted, [place] [address] CLIA: [id number] Mailroom Associate: Skylar Niño M.D. Comprehensive Metabolic Pane cheryl 06-04-2017 Albumin mass conc 3.8 g/dL Normal 3.2-5.2 [facility] Comment on above: Performed By: #### C BCDIF, CMET, EDCTNI #### Unless otherwise noted, [place] [address] CLIA: [id number] Mailroom Associate: Skylar Niño M.D. ALP enzyme act/vol 128 U/L Normal 40-150 [facility] Comment on above: Performed By: #### C BCDIF, CMET, EDCTNI #### Unless otherwise noted, [place] [address] CLIA: [id number] Mailroom Associate: Skylar Niño M.D. ALT enzyme act/vol 43 U/L Normal 14-65 [facility] Comment on above: Result Comment: This test result might be falsely depressed or falsely elevated on samples drawn from patients taking Sulfasalazine and Sulfapyridine. Venipuncture should occur prior to taking either of these drugs. Performed By: #### C BCDIF, CMET, EDCTNI #### Unless otherwise noted, [place] [address] CLIA: [id number] Mailroom Associate: Skylar Niño M.D. AST enzyme act/vol 20 U/L Normal 0-45 [facility] Comment on above: Result Comment: This test result might be falsely depressed or falsely elevated on samples drawn from patients taking Sulfasalazine and Sulfapyridine. Venipuncture should occur prior to taking either of these drugs. Performed By: #### C BCDIF, CMET, EDCTNI #### Unless otherwise noted, [place] [address] CLIA: [id number] Mailroom Associate: Skylar Niño M.D. Bilirubin mass conc 0.3 mg/dL Normal 0.3-1.2 [facility] Comment on above: Performed By: #### C BCDIF, CMET, EDCTNI #### Unless otherwise noted, [place] [address] CLIA: [id number] Mailroom Associate: Skylar Niño M.D. Calcium mass conc 9.4 mg/dL Normal 8.4-10.2 [facility] Comment on above: Performed By: #### C BCDIF, CMET, EDCTNI #### Unless otherwise noted, all testing performed by [place] [phone] CLIA: [id number] Mailroom Associate: Skylar Niño M.D. Chloride molar conc 100 mmol/L Normal 98-108 [facility] Comment on above: Performed By: #### C BCDIF, CMET, EDCTNI #### Unless otherwise noted, [place] [address] CLIA: [id number] Mailroom Associate: Skylar Niño M.D. CO2 molar conc 26 mmol/L Normal 21-32 [facility] Comment on above: Performed By: #### C BCDIF, CMET, EDCTNI #### Unless otherwise noted, [place] [address] CLIA: [id number] Mailroom Associate: Skylar Niño M.D. Creatinine mass conc 1.10 mg/dL Normal 0.40-1.10 [facility] Comment on above: Performed By: #### C BCDIF, CMET, EDCTNI #### Unless otherwise noted, [place] [address] CLIA: [id number] Mailroom Associate: Skylar Niño M.D. GFR/1.73 sq M predicted among blacks MDRD vol rate/area (S/P/Bld) mL/min/{1.73_m2} Normal [facility] Comment on above: Result Comment: Afri can Somali GFR Calc Performed By: #### C BCDIF, CMET, EDCTNI #### Unless otherwise noted, [place] [address] CLIA: [id number] Mailroom Associate: Skylar Niño M.D. GFR/1.73 sq M predicted among non-blacks MDRD vol rate/area (S/P/Bld) 52 mL/min/{1.73_m2} Low >60 [facility] Comment on above: Result Comment: [...] Unless otherwise noted, [place] [address] CLIA: [id number] Mailroom Associate: Skylar Niño M.D. Glucose mass conc 244 mg/dL High 70-99 [facility] Comment on above: Result Comment: This test result might be falsely depressed or falsely elevated on samples drawn from patients taking Sulfasalazine and Sulfapyridine. Venipuncture should occur prior to taking either of these drugs. Performed By: #### C BCDIF, CMET, EDCTNI #### Unless otherwise noted, all testing performed by [address] [place] [address] CLIA: [id number] Mailroom Associate: Skylar Niño M.D. Potassium molar conc 4.2 mmol/L Normal 3.5-5.1 [facility] Comment on above: Performed By: #### C BCDIF, CMET, EDCTNI #### Unless otherwise noted, [place] [address] CLIA: [id number] Mailroom Associate: Skylar Niño M.D. Protein mass conc 7.8 g/dL Normal 6.0-8.0 [facility] Comment on above: Performed By: #### C BCDIF, CMET, EDCTNI #### Unless otherwise noted, [place] [address] CLIA: [id number] Mailroom Associate: Skylar Niño M.D. Sodium molar conc 135 mmol/L Normal 135-145 [facility] Comment on above: Performed By: #### C BCDIF, CMET, EDCTNI #### Unless otherwise noted, [place] [address] CLIA: [id number] Mailroom Associate: Skylar Niño M.D. Urea nitrogen mass conc 15 mg/dL Normal 8-25 [facility] Comment on above: Performed By: #### C BCDIF, CMET, EDCTNI #### Unless otherwise noted, [place] [address] CLIA: [id number] Mailroom Associate: Skylar Niño M.D. ED Cardiac Troponin-Ion 04- Troponin I.cardiac mass conc ng/mL Normal < 45 [facility] Comment on above: Result Comment: Elev [...] Unless otherwise noted, all testing performed by [address] [address] CLIA: [id number] Mailroom Associate: Skylar Niño M.D. RIBS UNILATERALon 06-04-2017 RIBS UNILATERAL Final Report Accession No: [id number] Performed: Jun 04 2017 9:56PM Examination: [...] TANNER M.D. Trans: istumb : cc: Normal [facility] Culture,Bacterialon 04-23-19 Culture,Bacterial Test Name: Culture,Bacterial Site: LEFT ANKLE [...] F Vancomycin S <= 0.5 F Normal [facility] Comment on above: Performed By: #### C ULT #### Unless otherwise noted, all testing performed by [address] [place], [place] [address] CLIA: [id number] Mailroom Associate: Skylar Niño M.D. Progress Noteon 04-22-2017 Protein mass conc [facility] [address] [facility]. [place] [id number] NAME MEG GEORGES [id number] 1965 DATE PROGRESS NOTE Meg seen today [...] in a week. MARK MARQUEZ 04/22/2017 12:51 [id number] T 04/22/2017 16:19 BJZ/MODL Electronically Signed By Pili Gilliam DPM on 23 Apr 2017 17:35:14 GMT Normal [facility] Culture,Bacterialon 04-19-19 18 Culture,Bacterial Test Name: [...] 10 F Vancomycin S 1 F Normal [facility] Comment on above: Performed By: #### C ULT #### Unless otherwise noted, all testing performed by [facility] [address] [facility] [address] [place] [address] CLIA: [id number] Mailroom Associate: Skylar Niño M.D. Vital Signs Date Time Vital Sign Value Performing Clinician Alejandro douglas 08-10-2021 20:30-0400 Diastolic blood pressure 88 mm[Hg] Anthony Pedrozar DO Work Phone: [facility] [employer] 08-10-2021 20:30-0400 Heart rate 88 /min Anthony Baezuger DO Work Phone: [facility] [employer] 08-10-2021 20:30-0400 Respiratory rate 18 /min Anthony Pedrozar DO Work Phone: [facility] [employer] 08-10-2021 20:30-0400 SaO2% (BldA) [Mass fraction] 100 % Anthony Pedrozar DO Work Phone: [facility] [employer] 08-10-2021 20:30-0400 Systolic blood pressure 144 mm[Hg] Anthony Baezuger DO Work Phone: [facility] [employer] 08-10-2021 18:00-0400 Body temperature 100 [degF] Anthony Pedrozar DO Work Phone: [facility] [employer] 08-10-2021 13:33-0400 Body height 165.1 cm Anthony Pedrozar DO Work Phone: [facility] [employer] 08-08-2021 06:00-0400 Body mass index (BMI) [Ratio] 21.72 kg/m2 Anthony Pedrozar DO Work Phone: [facility] [employer] 08-08-2021 06:00-0400 Body weight 59.2 kg Anthony Pedrozar DO Work Phone: [facility] [employer] 07-14-2021 14:00-0400 Diastolic blood pressure 79 mm[Hg] Anthony Villarreal MD Work Phone: [facility] [employer] 07-14-2021 14:00-0400 Heart rate 100 /min Anthony Villarreal MD Work Phone: [facility] [employer] 07-14-2021 14:00-0400 SaO2% (BldA) [Mass fraction] 94 % Anthony [facility]real MD [facility] 07-14-2021 14:00-0400 Systolic blood pressure 143 mm[Hg] Anthony Villarreal MD Work Phone: [facility] 07-14-2021 11:15-0400 Respiratory rate 16 /min Anthony Villarreal MD Work Phone: [facility] 07-13-2021 20:37-0400 Body height 165.1 cm Anthony Villarreal MD Work Phone: [facility] 07-13-2021 20:37-0400 Body mass index (BMI) [Ratio] 23.3 kg/m2 Anthony Villarreal MD Work Phone: [facility] 07-13-2021 20:37-0400 Body weight 63.5 kg Anthony Villarreal MD Work Phone: [facility] 07-13-2021 20:20-0400 Body temperature 97.5 [degF] Anthony Villarreal MD Work Phone: [facility] 07-10-2021 10:55-0400 Body temperature 97.81 [degF] Wil Martinez MD Work Phone: [facility] 07-10-2021 10:55-0400 Diastolic blood pressure 54 mm[Hg] Wil Martinez MD Work Phone: [facility] [employer] 07-10-2021 10:55-0400 Heart rate 88 /min Wil Martinez MD Work Phone: [facility] 07-10-2021 10:55-0400 Respiratory rate 14 /min Wil Martinez MD Work Phone: [facility] [employer] 07-10-2021 10:55-0400 SaO2% (BldA) [Mass fraction] 98 % Wil Martinez MD Work Phone: [facility] 07-10-2021 10:55-0400 Systolic blood pressure 102 mm[Hg] Wil Martinez MD Work Phone: [facility] 07-10-2021 06:00-0400 Body mass index (BMI) [Ratio] 26.91 kg/m2 Wil Martinez MD Work Phone: [facility] 07-10-2021 06:00-0400 Body weight 73.35 kg Wil Martinez MD Work Phone: [facility] 07-05-2021 15:43-0400 Body height 165.1 cm Wil Martinez MD Work Phone: [facility] 06-28-2021 09:45-0400 Diastolic blood pressure 85 mm[Hg] Chris Boothe MD Work Phone: [employer] 06-28-2021 09:45-0400 Heart rate 106 /min Chris Boothe MD Work Phone: [employer] 06-28-2021 09:45-0400 Respiratory rate 25 /min Chris Boothe MD Work Phone: [employer] 06-28-2021 09:45-0400 SaO2% (BldA) [Mass fraction] 98 % Chris Boothe MD Work Phone: [employer] 06-28-2021 09:45-0400 Systolic blood pressure 180 mm[Hg] Chris Boothe MD Work Phone: [employer] 06-28-2021 07:41-0400 Body mass index (BMI) [Ratio] 24.13 kg/m2 Chris Boothe MD Work Phone: [employer] 06-28-2021 07:41-0400 Body weight 65.77 kg Chris Boothe MD Work Phone: [employer] 06-28-2021 03:49-0400 Body temperature 97.9 [degF] Chris Boothe MD Work Phone: [facility] 05-11-2021 15:31-0400 Diastolic blood pressure 63 mm[Hg] [facility] 05-11-2021 15:31-0400 Heart rate 84 /min [facility] 05-11-2021 15:31-0400 Respiratory rate 16 /min [facility] [facility] 05-11-2021 15:31-0400 Systolic blood pressure 132 mm[Hg] [address] 05-11-2021 13:31-0400 Body temperature 97.2 [degF] [address] 05-01-2021 14:36-0400 Body mass index (BMI) [Ratio] 25.81 kg/m2 Tia Baugh PA-C Work Phone: [facility] 05-01-2021 14:36-0400 Body temperature 98.29 [degF] Tia Baugh PA-C Work Phone: [facility] 05-01-2021 14:36-0400 Body weight 70.35 kg Tia Baugh PA-C Work Phone: [facility] 05-01-2021 14:36-0400 Diastolic blood pressure 88 mm[Hg] Tia Baugh PA-C Work Phone: [facility] 05-01-2021 14:36-0400 Heart rate 77 /min Tia Baugh PA-C Work Phone: [facility] 05-01-2021 14:36-0400 Respiratory rate 16 /min Tia Baugh PA-C Work Phone: [facility] 05-01-2021 14:36-0400 SaO2% (BldA) [Mass fraction] 97 % Ita Baugh PA-C Work Phone: [facility] 05-01-2021 14:36-0400 Systolic blood pressure 137 mm[Hg] Tia Baugh PA-C Work Phone: [facility] 04-17-2021 11:06-0500 Diastolic blood pressure 79 mm[Hg] Jef Mariela Jr., DPM Work Phone: [facility] 04-17-2021 11:06-0500 Heart rate 99 /min Jef Mariela Jr., DPM Work Phone: [facility] 04-17-2021 11:06-0500 Systolic blood pressure 123 mm[Hg] Jef Mariela Jr., DPM Work Phone: [facility] 04-17-2021 10:49-0500 Body temperature 98.2 [degF] Jef Mariela Jr., DPM Work Phone: [facility] 03-27-2021 11:06-0500 Body temperature 97.9 [degF] Jef Mariela Jr., DPM Work Phone: [facility] 03-27-2021 11:06-0500 Diastolic blood pressure 88 mm[Hg] Jef Mariela Jr., DPM Work Phone: [facility] 03-27-2021 11:06-0500 Heart rate 89 /min Jef Mariela Jr., DPM Work Phone: [facility] 03-27-2021 11:06-0500 Systolic blood pressure 146 mm[Hg] Jef Mariela Jr., DPM Work Phone: [facility] 02-20-2021 09:55-0500 Diastolic blood pressure 85 mm[Hg] Jef Mariela Jr., DPM Work Phone: [facility] 02-20-2021 09:55-0500 Heart rate 89 /min Jef Mariela Jr., DPM Work Phone: [facility] 02-20-2021 09:55-0500 Systolic blood pressure 154 mm[Hg] Jef Mariela Jr., DPM Work Phone: [facility] 02-20-2021 09:52-0500 Body temperature 97.59 [degF] Jef Mariela Jr., DPM Work Phone: [facility] 2021 11:17-0500 Body temperature 97.7 [degF] Jef Mariela Jr., DPM Work Phone: [facility] 2021 11:17-0500 Diastolic blood pressure 80 mm[Hg] Jef Mariela Jr., DPM Work Phone: [facility] 2021 11:17-0500 Heart rate 96 /min Jef Mariela Jr., DPM Work Phone: [facility] 2021 11:17-0500 Systolic blood pressure 157 mm[Hg] Jef Mariela Jr., DPM Work Phone: [facility] 01-30-2021 10:31-0500 Body temperature 98.4 [degF] Jef Mariela Jr., DPM Work Phone: [facility] 01-30-2021 10:31-0500 Diastolic blood pressure 81 mm[Hg] Jef Mariela Jr., DPM Work Phone: [facility] 01-30-2021 10:31-0500 Heart rate 98 /min Jef Mariela Jr., DPM Work Phone: [facility] 01-30-2021 10:31-0500 Systolic blood pressure 156 mm[Hg] Jef Mariela Jr., DPM Work Phone: [facility] 01-24-2021 15:58-0500 Body temperature 97.7 [degF] Jef Mariela Jr., DPM Work Phone: [facility] 01-24-2021 15:58-0500 Diastolic blood pressure 80 mm[Hg] Jef Mariela Jr., DPM Work Phone: [facility] 01-24-2021 15:58-0500 Heart rate 101 /min Jef Mariela Jr., DPM Work Phone: [facility] 01-24-2021 15:58-0500 Systolic blood pressure 163 mm[Hg] Jef Mariela Jr., DPM Work Phone: [facility] 01-16-2021 10:58-0500 Body temperature 97.7 [degF] Jef Mariela Jr., DPM Work Phone: [facility] 01-16-2021 10:58-0500 Diastolic blood pressure 83 mm[Hg] Jef Mariela Jr., DPM Work Phone: [facility] 01-16-2021 10:58-0500 Heart rate 102 /min Jef Mariela Jr., DPM Work Phone: [facility] 01-16-2021 10:58-0500 Systolic blood pressure 143 mm[Hg] Jef Mariela Jr., DPM Work Phone: [facility] 01-09-2021 08:43-0500 Body temperature 97.2 [degF] Jef Mariela Jr., DPM Work Phone: [facility] 01-09-2021 08:43-0500 Diastolic blood pressure 81 mm[Hg] Jef Mariela Jr., DPM Work Phone: [facility] 01-09-2021 08:43-0500 Heart rate 99 /min Jef Mariela Jr., DPM Work Phone: [facility] 01-09-2021 08:43-0500 Systolic blood pressure 156 mm[Hg] Jef Mariela Jr., DPM Work Phone: [facility] 01-02-2021 09:09-0500 Body temperature 97.7 [degF] Jef Mariela Jr., DPM Work Phone: [facility] 01-02-2021 09:09-0500 Diastolic blood pressure 85 mm[Hg] Jef Mariela Jr., DPM Work Phone: [facility] 01-02-2021 09:09-0500 Heart rate 83 /min Jef Mariela Jr., DPM Work Phone: [facility] 01-02-2021 09:09-0500 Systolic blood pressure 149 mm[Hg] Jef Mariela Jr., DPM Work Phone: [facility] 12-19-2020 11:17-0400 Body height 165.1 cm Jfe Mariela Jr., DPM Work Phone: [facility] 12-19-2020 11:17-0400 Body mass index (BMI) [Ratio] 25.46 kg/m2 Jef Mariela Jr., DPM Work Phone: [facility] 12-19-2020 11:17-0400 Body temperature 97.2 [degF] Jef Mariela Jr., DPM Work Phone: [facility] 12-19-2020 11:17-0400 Body weight 69.4 kg Jef Mariela Jr., DPM Work Phone: [facility] 12-19-2020 11:17-0400 Diastolic blood pressure 84 mm[Hg] Jef Mariela Jr., DPM Work Phone: [facility] 12-19-2020 11:17-0400 Heart rate 111 /min Jef Mariela Jr., DPM Work Phone: [facility] 12-19-2020 11:17-0400 Systolic blood pressure 144 mm[Hg] Jef Mariela Jr., DPM Work Phone: [facility] 10-17-2020 08:11-0400 Body height 153.7 cm Jef Mariela Jr., DPM Work Phone: [facility] 10-17-2020 08:11-0400 Body mass index (BMI) [Ratio] 29.39 kg/m2 Jef Mariela Ahmadi, DPM Work Phone: [facility] 10-17-2020 08:11-0400 Body temperature 97.2 [degF] Jef Mariela Guzman., DPM Work Phone: [facility] 10-17-2020 08:11-0400 Body weight 69.4 kg Jef Vieiracheryl Ahmadi, DPM Work Phone: [facility] 10-17-2020 08:11-0400 Diastolic blood pressure 79 mm[Hg] Jef Vieiracheryl Ahmadi, DPM Work Phone: [facility] 10-17-2020 08:11-0400 Heart rate 82 /min Jef Mariela Ahmadi, DPM Work Phone: [facility] 10-17-2020 08:11-0400 Systolic blood pressure 133 mm[Hg] Jef Mariela Ahmadi, DPM Work Phone: [facility] 10-03-2020 11:22-0400 Diastolic blood pressure 83 mm[Hg] [address] 10-03-2020 11:22-0400 Heart rate 84 /min [address] 10-03-2020 11:22-0400 Respiratory rate 16 /min [address] 10-03-2020 11:22-0400 Systolic blood pressure 174 mm[Hg] [address] 10-03-2020 09:15-0400 Body temperature 97.9 [degF] [address] 09-26-2020 11:50-0400 Body height 165.1 cm Franck Mtz MD Work Phone: [facility] 09-26-2020 11:50-0400 Body mass index (BMI) [Ratio] 25.96 kg/m2 Franck Mtz MD Work Phone: [facility] 09-26-2020 11:50-0400 Body weight 70.76 kg Franck Mtz MD Work Phone: [facility] 09-26-2020 11:50-0400 Diastolic blood pressure 67 mm[Hg] Franck Mtz MD Work Phone: [facility] 09-26-2020 11:50-0400 Heart rate 105 /min Franck Mtz MD Work Phone: [facility] 09-26-2020 11:50-0400 Systolic blood pressure 142 mm[Hg] Franck Mtz MD Work Phone: [facility] 09-21-2020 13:31-0400 Diastolic blood pressure 68 mm[Hg] [address] 09-21-2020 13:31-0400 Heart rate 89 /min [address] 09-21-2020 13:31-0400 Respiratory rate 16 /min [address] 09-21-2020 13:31-0400 Systolic blood pressure 154 mm[Hg] [address] 09-21-2020 11:36-0400 Body temperature 97.9 [degF] [address] 09-14-2020 14:39-0400 Body temperature 99.39 [degF] Jef Sierra Jr., DPM Work Phone: [facility] 09-14-2020 14:39-0400 Diastolic blood pressure 85 mm[Hg] Jef Sierra Jr., DPM Work Phone: [facility] 09-14-2020 14:39-0400 Heart rate 98 /min Jef Sierra Jr., DPM Work Phone: [facility] 09-14-2020 14:39-0400 Systolic blood pressure 145 mm[Hg] Jef Sierra Jr., DPM Work Phone: [facility] 09-13-2020 09:34-0400 Body height 165.1 cm Luis Miguel Kaur MD Work Phone: [facility] 09-13-2020 09:34-0400 Body mass index (BMI) [Ratio] 25.66 kg/m2 Luis Miguel Kaur MD Work Phone: [facility] 09-13-2020 09:34-0400 Body weight 69.94 kg Luis Miguel Kaur MD Work Phone: [facility] 09-13-2020 09:34-0400 Diastolic blood pressure 74 mm[Hg] Luis Miguel Kaur MD Work Phone: [facility] 09-13-2020 09:34-0400 Heart rate 89 /min Luis Miguel Kaur MD Work Phone: [facility] 09-13-2020 09:34-0400 Systolic blood pressure 158 mm[Hg] Luis Miguel Kaur MD Work Phone: [facility] 04-18-2020 08:16-0500 Body height 153.7 cm Jef Sierra Jr., DPM Work Phone: [facility] 04-18-2020 08:16-0500 Body mass index (BMI) [Ratio] 29.39 kg/m2 Jef Sierra Jr., DPM Work Phone: [facility] 04-18-2020 08:16-0500 Body weight 69.4 kg Jef Sierra Jr., DPM Work Phone: [facility] 04-18-2020 08:16-0500 Diastolic blood pressure 86 mm[Hg] Jef Sierra Jr., DPM Work Phone: [facility] 04-18-2020 08:16-0500 Systolic blood pressure 136 mm[Hg] Jef Sierra Jr., DPM Work Phone: [facility] 05-29-2018 09:31-0400 BMI (Body Mass Index) 25.29 kg/m2 [facility] 05-29-2018 09:31-0400 Body Temperature 98.4 [degF] [facility] 05-29-2018 09:31-0400 BP Diastolic 90 mm[Hg] [facility] 05-29-2018 09:31-0400 BP Systolic 159 mm[Hg] [facility] 05-29-2018 09:31-0400 Height 165.1 cm [facility] 05-29-2018 09:31-0400 Pulse (Heart Rate) 102 /min [facility] 05-29-2018 09:31-0400 Pulse Oximetry 100 % [facility] 05-29-2018 09:31-0400 Respiratory Rate 16 /min [facility] 05-29-2018 09:31-0400 Weight 68.95 kg [facility] 01-01-2018 14:05-0500 BMI (Body Mass Index) 25.07 kg/m2 [facility] Work Phone: 01-01-2018 14:05-0500 BP Diastolic 75 mm[Hg] [facility] Work Phone: 01-01-2018 14:05-0500 BP Systolic 121 mm[Hg] [facility] Work Phone: 01-01-2018 14:05-0500 Height 166.4 cm [facility] Work Phone: 01-01-2018 14:05-0500 Pulse (Heart Rate) 108 /min [facility] Work Phone: 01-01-2018 14:05-0500 Weight 69.4 kg [facility] Work Phone: 04-07-2017 12:24-0500 BP Diastolic 67 mm[Hg] Reji Miramontes [facility] 04-07-2017 12:24-0500 BP Systolic 100 mm[Hg] Reji Miramontes [facility] 04-07-2017 12:24-0500 Pulse (Heart Rate) 98 /min Reji Miramontes [facility] 04-07-2017 12:22-0500 BMI (Body Mass Index) 26.49 kg/m2 Reji Miramontes [facility] 04-07-2017 12:22-0500 Height 165.1 cm Reji Miramontes [facility] 04-07-2017 12:22-0500 Respiratory Rate 16 /min Reji Miramontes [facility] 04-07-2017 12:22-0500 Weight 72.21 kg Reji Miramontes [facility] Encounters Encounter Date Encounter Type Care Provider Facility Start: 09-27-2024 End: 09-27-2024 Bamboo flowsheet Skylar Whitfield DO Work Phone: [facility] Start: 09-27-2024 End: 09-27-2024 Bamboo flowsheet Skylar Whitfield DO Work Phone: [facility] Start: 09-27-2024 End: 09-27-2024 ambulatory SKYLAR WHITFIELD Not Available Start: 08-27-2024 End: 08-27-2024 Bamboo flowsheet Ramona Northeim PA Work Phone: [facility] Start: 08-27-2024 End: 08-27-2024 Bamboo flowsheet Ramona Northeim PA Work Phone: [facility] Start: 08-27-2024 End: 09-06-2024 Orders Only Ramona Northeim PA Work Phone: [facility] External Department Unsolicited Start: 08-27-2024 End: 08-27-2024 Office outpatient visit 25 minutes Ramona Northeim PA Work Phone: [facility] Comment on above: Other atopic dermati tis (Primary Dx); Traumatic ulcer of left foot, unspecified ulcer stage (HCC); Impetigo Start: 08-27-2024 End: 08-27-2024 ambulatory RAMONA NORTHEIM Not Available Start: 08-10-2024 End: 08-10-2024 Clinisync Result Encounter Generic External Data Provider [facility] External [facility] Unsolicited Start: 08-10-2024 End: 08-10-2024 Clinisync Result Encounter Generic External Data Provider [facility] External Department Unsolicited Start: 06-28-2024 End: 06-28-2024 ambulatory SKYLAR WHITFIELD Not Available Start: 04-16-2024 End: 04-16-2024 Emergency department patient visit Garfield Rodriguez Facility:[facility] Start: 02-23-2024 ambulatory Jami L Jemima Facility: [facility] [place] Start: 11-21-2023 End: 11-21-2023 ambulatory Jami L Jemima Facility:[facility] [place] Start: 10-24-2023 End: 10-24-2023 ambulatory Jami L Jemima Facility:[facility] [place] Start: 10-10-2023 ambulatory Jami Jemima [facility] Start: 05-27-2023 End: 05-27-2023 ambulatory ALAA ALAHMAD Facility:[facility] Start: 03-29-2023 Clinisync Result Encounter Rufus Shen MD Work Phone: [facility] External [facility] Unsolicited Start: 03-29-2023 Clinisync Result Encounter Rufus Shen MD Work Phone: [facility] External [facility] Unsolicited Start: 11-22-2022 End: 11-25-2022 ambulatory GANGA SAVAGE [facility] Start: 04-02-2022 End: 04-05-2022 ambulatory ALISIA VAISHALI ALISIA [facility] Start: 04-02-2022 End: 04-04-2022 Subsequent hospital visit by physician Vineet McH Xr [facility] Comment on above: S/P cervical spinal fusion Start: 12-04-2021 End: 12-06-2021 Subsequent hospital visit by physician Vineet C-Arm 1 [facility] Comment on above: Atlantoaxial instabi lity; S/P cervical spinal fusion Start: 11-22-2021 End: 11-22-2021 ambulatory Rufus Shen Facility:[facility] Start: 11-22-2021 End: 11-22-2021 ambulatory II Rufus Shen Work Phone: [facility] Work Phone: Start: 11-22-2021 End: 11-22-2021 Departed Referred II Rufus Shen Work Phone: [facility] [place] Start: 08-20-2021 End: 08-22-2021 Evaluation and management of inpatient JERRY POZO Facility:[facility] Start: 07-14-2021 End: 08-10-2021 Evaluation and management of inpatient Anthony Lucero DO Work Phone: [facility] Start: 07-13-2021 End: 07-14-2021 Emergency department patient visit Anthony Villarreal MD Work Phone: [facility] Comment on above: COVID-19 (Primary Dx ); Pneumonia of left lower lobe due to infectious organism; Hypokalemia; Hypomagnesemia; 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 Start: 06-28-2021 End: 07-10-2021 Evaluation and management of inpatient Wil Martinez MD Work Phone: [facility] Start: 06-28-2021 End: 06-28-2021 Emergency department patient visit Chris Boothe MD Work Phone: [facility] Comment on above: Non-intractable vomi ting with nausea, unspecified vomiting type (Primary Dx); Altered mental status, unspecified altered mental status type; Leukocytosis, unspecified type Start: 05-18-2021 End: 05-29-2021 Evaluation and management of inpatient [facility] Start: 05-18-2021 End: 05-18-2021 Emergency department patient visit NERI SANTA [facility] Start: 05-15-2021 ambulatory NERI [facility] Start: 05-11-2021 ambulatory SANIA WELDON Facility: [facility] Start: 05-11-2021 End: 05-11-2021 ambulatory [id number] Start: 05-11-2021 End: 05-11-2021 Patient encounter procedure Sania Weldon DO Work Phone: [facility] Comment on above: CIDP (chronic inflam matory demyelinating polyneuropathy) (Primary Dx) Start: 05-07-2021 ambulatory NERI SANTA Facilit y:[facility] Start: 05-01-2021 End: 05-01-2021 ambulatory NERI Elena SANTA [facility] Start: 05-01-2021 End: 05-01-2021 Office outpatient visit 15 minutes Tia Baugh PA-C Work Phone: [facility] [place] Comment on above: Partial thickness bu rn of single finger of right hand excluding thumb, initial encounter (Primary Dx); Wound infection; Laceration of right thumb, initial encounter Start: 04-25-2021 ambulatory NERI SANTA Facilit y:[facility] Start: 04-17-2021 End: 04-17-2021 ambulatory JEF SIERRA JR. [facility] Start: 04-17-2021 End: 04-17-2021 Office outpatient visit 15 minutes Jef Sierra DPM Work Phone: [facility] Comment on above: Chronic ulcer of gre at toe of left foot with fat layer exposed (HCC) (Primary Dx) Start: 04-12-2021 ambulatory NREI SANTA Facilit y:[facility] Start: 04-12-2021 ambulatory NERI SANTA Facilit y:[facility] Start: 04-06-2021 End: 04-06-2021 Evaluation and management of inpatient PCP PCP UNKNOWN~[phone] PHYSICIAN PHYSICIAN [facility] Start: 04-06-2021 End: 04-07-2021 Evaluation and management of inpatient VAISHALI SLIMAN [facility] Start: 04-05-2021 ambulatory NERI SANTA Facilit y:[facility] Start: 03-27-2021 End: 03-27-2021 ambulatory JEF SIERRA JR. [facility] Start: 03-27-2021 End: 03-27-2021 Office outpatient visit 15 minutes Jef Sierra DPM Work Phone: [facility] Comment on above: Chronic ulcer of gre at toe of left foot with fat layer exposed (HCC) (Primary Dx) Start: 03-07-2021 ambulatory KRYSTYNA BUSBY Facility :[facility] Start: 03-06-2021 End: 03-06-2021 ambulatory JEFDAVID SIERRA JR. [facility] Start: 03-01-2021 ambulatory NERI P HOUSE Facilit y:[facility] Start: 02-21-2021 ambulatory NERI P HOUSE Facilit y:[facility] Start: 02-20-2021 End: 02-20-2021 ambulatory JEFCynthia SIERRA JR. [facility] Start: 02-20-2021 End: 02-20-2021 Patient encounter procedure Jef Sierra DPM Work Phone: [facility] Comment on above: Chronic ulcer of gre at toe of left foot with fat layer exposed (HCC) Start: 02-15-2021 ambulatory NERI P HOUSE Facilit y:[facility] Start: 02-14-2021 ambulatory NERI P HOUSE Facilit y:[facility] Start: 02-12-2021 ambulatory NERI P HOUSE Facilit y:[facility] Start: 02-07-2021 ambulatory NERI P HOUSE Facilit y:[facility] Start: 2021 End: 2021 ambulatory JEF SIERRA JR. [facility] Start: 2021 End: 2021 Patient encounter procedure Jef Sierra DPM Work Phone: [facility] Comment on above: Ulcer of left foot w ith fat layer exposed (HCC) (Primary Dx) Start: 01-30-2021 End: 01-30-2021 ambulatory JEFCynthia SIERRA JR. [facility] Start: 01-30-2021 End: 01-30-2021 Patient encounter procedure Jef Sierra DPM Work Phone: [facility] Comment on above: Ulcer of left foot w ith fat layer exposed (HCC) (Primary Dx) Start: 01-24-2021 End: 01-24-2021 ambulatory JEF SIERRA JR. [facility] Start: 01-24-2021 End: 01-24-2021 Patient encounter procedure Jef Sierra DPM Work Phone: [facility] Comment on above: Ulcer of left foot w ith fat layer exposed (HCC) (Primary Dx) Start: 01-23-2021 ambulatory NERI SANTA Facilit y:[facility] Start: 01-16-2021 End: 01-16-2021 ambulatory JEF FLORESN . 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 [facility] Start: 01-09-2021 End: 01-09-2021 Patient encounter procedure Jef Sierra DPM Work Phone: [facility] Comment on above: Ulcer of left foot w ith fat layer exposed (HCC) (Primary Dx) Start: 01-02-2021 End: 01-02-2021 ambulatory JEF FLORESN . [facility] Start: 01-02-2021 End: 01-02-2021 Patient encounter procedure Jef Sierra DPM Work Phone: [facility] Comment on above: Non-pressure chronic ulcer of other part of left foot with fat layer exposed (HCC) (Primary Dx); Ulcer of left foot with fat layer exposed (HCC) Start: 01-01-2021 ambulatory NERI SANTA Facilit y:[facility] Start: 12-27-2020 ambulatory NERI SANTA Facilit y:[facility] Start: 12-27-2020 ambulatory SHARON Harrison cility:[facility] Start: 12-26-2020 ambulatory SELF SELF Facility:[facility] Start: 12-19-2020 End: 12-19-2020 ambulatory JEF SIERRA JR. [facility] Start: 12-19-2020 End: 12-19-2020 Patient encounter procedure Jef Sierra DPM Work Phone: [facility] Comment on above: Ulcer of left foot w ith fat layer exposed (HCC) (Primary Dx) Start: 12-13-2020 ambulatory KRYSTYNA BUSBY Facility :[facility] Start: 12-13-2020 ambulatory SHARON HERNANDEZ Fa cility:[facility] Start: 12-06-2020 Orders Only Jef unger DPM Work Phone: [facility] Start: 12-05-2020 End: 12-05-2020 ambulatory JEF SIERRA JR. [facility] Start: 11-16-2020 End: 11-16-2020 ambulatory JEF SIERRA JR. [facility] Start: 10-17-2020 End: 10-21-2020 ambulatory JEF SIERRA JR. [facility] Start: 10-17-2020 End: 10-17-2020 Office outpatient visit 15 minutes Jef Sierra DPM Work Phone: [facility] Comment on above: Chronic ulcer of gre at toe of left foot, unspecified ulcer stage (HCC) (Primary Dx) Start: 10-10-2020 End: 10-10-2020 Office outpatient visit 25 minutes Olga Lidia Matos MD Work Phone: [facility] Comment on above: Primary open angle g laucoma (POAG) of right eye, severe stage (Primary Dx); Primary open angle glaucoma (POAG) of left eye, severe stage; Diabetic macular edema; Pseudophakia Start: 10-03-2020 End: 10-03-2020 ambulatory [facility]mp[facility][id number] Start: 10-03-2020 End: 10-03-2020 Patient encounter procedure Franck Mtz MD Work Phone: [facility] Comment on above: CIDP (chronic inflam matory demyelinating polyneuropathy) (Primary Dx) Start: 09-26-2020 End: 09-26-2020 Subsequent hospital visit by physician Franck Mtz MD Work Phone: [facility] Comment on above: Arrived Start: 09-26-2020 End: 09-26-2020 Office outpatient visit 25 minutes Franck Mtz MD Work Phone: [facility] Comment on above: CIDP (chronic inflam matory demyelinating polyneuropathy) (Primary Dx) Start: 09-21-2020 End: 09-21-2020 ambulatory [id number] Infusion [facility] Start: 09-21-2020 End: 09-21-2020 Patient encounter procedure Neri Parker Arina PALACIOS Work Phone: [facility] Comment on above: 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 [facility] Start: 09-14-2020 End: 09-14-2020 Office outpatient visit 15 minutes Jef Sierra DPM Work Phone: [facility] Comment on above: Great toe pain, left (Primary Dx); Foot abscess, left Start: 09-13-2020 End: 09-13-2020 Chart abstracting Jef Sierra DPM Work Phone: [facility] Comment on above: [...] minutes Luis Miguel Kaur MD Work Phone: [facility] Comment on above: Type 2 diabetes bety itus with diabetic polyneuropathy, with long-term current use of insulin (Primary Dx); Acquired hypothyroidism Start: 09-12-2020 ambulatory JEF SIERRA JR. [facility] Ambulatory Start: 04-25-2020 End: 04-25-2020 Orders Only Kristen Elzbieta Chamberlain Work Phone: [facility] Start: 02-17-2020 End: 02-17-2020 Subsequent hospital visit by physician Sr [facility] Start: 01-27-2020 End: 01-28-2020 Patient encounter procedure NERI TUSCALOOSA Facility:[facility] Start: 12-22-2019 End: 12-23-2019 Patient encounter procedure [facility] Facility: Start: 12-20-2019 End: 12-20-2019 Emergency department patient visit NERI Parker [facility] Start: 12-20-2019 End: 12-20-2019 Emergency department patient visit Andres Lubin Work Phone: [facility] Emergency Department Comment on above: Avulsion of fingerna il, initial encounter (Primary Dx) Start: 05-29-2018 End: 05-29-2018 Emergency department patient visit Jonathan Camara Work Phone: [facility] Emergency Department Comment on above: Cellulitis (Primary Dx) Start: 01-20-2018 End: 01-20-2018 Patient encounter procedure Rich Beltran [facility]ology Comment on above: Type 2 diabetes bety itus without complication, with long-term current use of insulin Start: 01-06-2018 End: 01-06-2018 Patient encounter Balbina Goss [facility] Comment on above: Appointment Start: 01-05-2018 End: 01-05-2018 Patient encounter Yusra Ching [facility] Comment on above: Type 2 diabetes bety itus without complication, with long-term current use of insulin (Primary Dx) Start: 01-01-2018 End: 01-01-2018 Office outpatient visit 25 minutes Luis Miguel Sallie Kaur Work Phone: [facility] Comment on above: Type 2 diabetes bety itus with diabetic polyneuropathy, without long-term current use of insulin (Primary Dx); Mixed hyperlipidemia Start: 01-01-2018 End: 01-01-2018 Patient encounter Historical Provider Neurology Madie Velazquez Start: 12-16-2017 Patient encounter procedure Pili Gilliam Facility:[place] Start: 11-25-2017 Patient encounter procedure Pili Gilliam Facility:[place] Start: 11-25-2017 End: 11-25-2017 Patient encounter Pili Gilliam Work Phone: [facility] Start: 11-03-2017 Patient encounter procedure Pili Gilliam Facility:[place] Start: 08-22-2017 End: 08-22-2017 Patient encounter procedure Mark Anthony Mcdonald Facility:[place] Start: 08-14-2017 Patient encounter procedure Mark Anthony Mcdonald Facility:[place] Start: 06-13-2017 Patient encounter procedure Martha Yan Facility:[place] Start: 06-04-2017 End: 06-05-2017 Emergency department patient visit Ariel Franklin Facility:[place] Start: 04-11-2017 End: 04-11-2017 Ambulatory Martha Carsonwood Work Phone: [facility] Start: 04-07-2017 Office/outpatient vi sit, olivier, level 3 Pili Gilliam Work Phone: [facility] Start: 03-28-2017 End: 03-28-2017 Ambulatory Pili Gilliam Work Phone: [facility] Start: 03-14-2017 End: 03-14-2017 Ambulatory Pili Gilliam Work Phone: [facility] Procedures Date Procedure Procedure Detail Performing Clinician Start: 09-27-2024 Visual field xm uni/ bi w/interp extended exam Skylar Whitfield DO Work Phone: Start: 09-27-2024 End: 09-27-2024 Oph medical xm&eval 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 estab pt Primary open angle glaucoma (POAG) of both eyes, moderate stage Skylar Whitfield DO Work Phone: Comment on above: Primary open angle g laucoma (POAG) of both eyes, moderate stage (Primary Dx); 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 mellitus (HCC); Left posterior capsular opacification; Dry eyes Start: 08-27-2024 Cul bact xcpt urine blood/stool aerobic isol Ramona Campuzano PA Work Phone: Start: 08-27-2024 RESULT Ramona frias PA Work Phone: Start: 08-10-2024 SEGMENTAL BLOOD PRESSURE Generic External Data Provider Start: 08-10-2024 XR FOOT SAMANTHA MIN 3 VIEWS Generic External Data Provider Start: 06-28-2024 Computerized ophthal becky imaging optic nerve Skylar Whitfield DO Work Phone: Start: 06-28-2024 End: 06-28-2024 [facility] medical xm&eval compre new pt 1/> vst Primary open angle glaucoma (POAG) of both eyes, moderate stage Skylar Whitfield DO Work Phone: Comment on above: Primary open angle g laucoma (POAG) of both eyes, moderate stage (Primary Dx); 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 mellitus (CMS/HCC); Left posterior capsular opacification; Dry eyes Start: 03-29-2023 [facility] CBC W/ AUTO DIFF D aram Shen MD Work Phone: Start: 04-02-2022 Radex spine cervical 4 or 5 views Alisia Cevallos DO Work Phone: Start: 12-04-2021 Radex spine cervical 2 or 3 views Alie Loza STUDENT DEVELOPMENT SPECIALIST - ELECTRIC TRACK SWITCH MAINTAINER Work Phone: Start: 08-20-2021 Antibody screen JERRY BARRAZA Comment on above: Performed By: #### [id number] #### [facility] [address] [place] [address], [facility] Start: 08-10-2021 Glucose blood reagent strip Aniket Padron MD Work Phone: Start: 08-10-2021 End: 08-10-2021 Assay of magnesium Tami Vega MD Work Phone: Start: 08-10-2021 BASIC METABOLIC PANE L W/ REFLEX TO MG FOR LOW K Tami Vega MD Work Phone: Start: 08-09-2021 Glucose blood [...] Radex spine cervical 2 or 3 views Kma Lionel Loera STUDENT DEVELOPMENT SPECIALIST - ELECTRIC TRACK SWITCH MAINTAINER Work Phone: Start: 08-07-2021 Glucose blood reagent [...] W/ REFLEX TO MG FOR LOW K Skylar Coyle MD Work Phone: Start: 08-06-2021 End: 08-06-2021 Blood count complete auto&auto difrntl wbc Skylar Coyle MD Work Phone: Start: 08-05-2021 Glucose blood reagent strip Aniket Padron MD Work Phone: Start: 08-05-2021 Glucose blood reagent strip Aniket Padron MD Work Phone: Start: 08-05-2021 Glucose blood reagent strip Aniket Padron MD Work Phone: Start: 08-05-2021 ARTERIAL BLOOD GAS, POC Jeff Willoughby MD Work Phone: Start: 08-05-2021 End: 08-05-2021 Assay of magnesium Skylar Coyle MD Work Phone: Start: 08-05-2021 BASIC METABOLIC PANE L W/ REFLEX TO MG FOR LOW K Skylar Coyle MD Work Phone: Start: 08-05-2021 Glucose [...] W/ REFLEX TO MG FOR LOW K Skylar Coyle MD Work Phone: Start: 08-04-2021 Glucose [...] W/ REFLEX TO MG FOR LOW K Skylar Coyle MD Work Phone: Start: 08-03-2021 ARTERIAL [...] Start: 08-02-2021 End: 08-02-2021 Assay of magnesium Skylar Coyle MD Work Phone: Start: 08-02-2021 BASIC METABOLIC PANE L W/ REFLEX TO MG FOR LOW K Skylar Coyle MD Work Phone: Start: 08-01-2021 Glucose blood reagent strip Jeff Willoughby MD Work Phone: Start: 08-01-2021 Glucose blood reagent strip Jeff Willoughby MD Work Phone: Start: 08-01-2021 Glucose blood reagent strip Jeff Willoughby MD Work Phone: Start: 08-01-2021 End: 08-01-2021 Assay of magnesium Skylar Coyle MD Work Phone: Start: 08-01-2021 BASIC METABOLIC PANE L W/ REFLEX TO MG FOR LOW K Skylar Coyle MD Work Phone: Start: 07-31-2021 Glucose blood reagent strip Jeff Willoughby MD Work Phone: Start: 07-31-2021 Blood count hemoglobin Skylar Coyle MD Work Phone: Start: 07-31-2021 Glucose blood reagent strip Jeff Willoughby MD Work Phone: Start: 07-31-2021 End: 07-31-2021 Glucose blood reagent strip Jeff Willoughby MD Work Phone: Start: 07-31-2021 End: 07-31-2021 Assay of magnesium Skylar Coyle MD Work Phone: Start: 07-31-2021 BASIC METABOLIC PANE L W/ REFLEX TO MG FOR LOW K Skylar Coyle MD Work Phone: Start: 07-31-2021 Glucose blood reagent strip Jeff Willoughby MD Work Phone: Start: 07-30-2021 End: 07-30-2021 Blood count hemoglobin Skylar caballero MD Work Phone: Start: 07-30-2021 Glucose blood reagent strip Jeff Willoughby MD Work Phone: Start: 07-30-2021 Antibody screen Darrell pher Hauger DO Work Phone: Start: 07-30-2021 End: 07-30-2021 TRACHEOTOMY Erica Santiago MD Work Phone: Start: 07-30-2021 BASIC METABOLIC PANE L W/ REFLEX TO MG FOR LOW K Skylar Coyle MD Work Phone: Start: 07-30-2021 Blood count complete auto&auto difrntl wbc Skylar Coyle MD Work Phone: Start: 07-30-2021 ARTERIAL BLOOD GAS, POC Jeff Willoughby MD Work Phone: Start: 07-29-2021 Blood count hemoglobin Missy Moore MD Work Phone: Start: 07-29-2021 End: 07-29-2021 Transfusion of packed red blood cells Tete Melgar MD Work Phone: Start: 07-29-2021 Blood count hemoglobin Skylar Coyle MD Work Phone: Start: 07-29-2021 Glucose blood reagent strip Jeff Willoughby MD Work Phone: Start: 07-29-2021 Blood typing serologic abo Tete Melgar MD Work Phone: Start: 07-29-2021 Glucose blood reagent strip Jeff Willoughby MD Work Phone: Start: 07-29-2021 BASIC METABOLIC PANE L W/ REFLEX TO MG FOR LOW K Skylar Coyle MD Work Phone: Start: 07-29-2021 End: 07-29-2021 Blood count complete auto&auto difrntl wbc Skylar Coyle MD Work Phone: Start: 07-29-2021 ARTERIAL [...] W/ REFLEX TO MG FOR LOW K Skylar Coyle MD Work Phone: Start: 07-28-2021 Blood count complete auto&auto difrntl wbc Skylar Coyle MD Work Phone: Start: 07-28-2021 ARTERIAL BLOOD GAS, POC Jeff Willoughby MD Work Phone: Start: 07-28-2021 Gluc bld gluc mntr d ev cleared fda spec home use Jeff Willoughby MD Work Phone: Start: 07-27-2021 End: 07-27-2021 Blood count hemoglobin Skylar caballero MD Work Phone: Start: 07-27-2021 Glucose blood reagent strip Jeff Willoughby MD Work Phone: Start: 07-27-2021 Glucose blood reagent strip Jeff Willoughby MD Work Phone: Start: 07-27-2021 End: 07-27-2021 Calcium ionized Tete Melgar MD Work Phone: Start: 07-27-2021 BASIC METABOLIC PANE L W/ REFLEX TO MG FOR LOW K Skylar Coyle MD Work Phone: Start: 07-27-2021 Blood count complete auto&auto difrntl wbc Skylar Coyle MD Work Phone: Start: 07-27-2021 ARTERIAL BLOOD GAS, POC Jeff Willoughby MD Work Phone: Start: 07-27-2021 End: 07-27-2021 Gluc bld gluc mntr dev cleared fda spec home use Jeff Willoughby MD Work Phone: Start: 07-27-2021 Glucose blood reagent strip Jeff Willoughby MD Work Phone: Start: 07-26-2021 Glucose blood reagent strip Jeff Willoughby MD Work Phone: Start: 07-26-2021 Blood count hemoglobin Skylar Coyle MD Work Phone: Start: 07-26-2021 Mri spinal canal cer vical w/o & w/contr matrl Fabi Page MD Work Phone: Start: 07-26-2021 Glucose blood reagent strip Jeff Willoughby MD Work Phone: Start: 07-26-2021 Radiologic exam ches t single view Missy Moore MD Work Phone: Start: 07-26-2021 Glucose blood reagent strip Jeff Willoughby MD Work Phone: Start: 07-26-2021 EXTUBATION Skylar Coyle MD Work Phone: Start: 07-26-2021 Glucose blood reagent strip Jeff Willoughby MD Work Phone: Start: 07-26-2021 End: 07-26-2021 Assay of magnesium Johnny Robledo MD Work Phone: Start: 07-26-2021 BASIC METABOLIC PANE L W/ REFLEX TO MG FOR LOW K Skylar Coyle MD Work Phone: Start: 07-26-2021 ARTERIAL [...] cervical spine w/ o contrast material Kam Aguirrejack STUDENT DEVELOPMENT SPECIALIST - MANAGER INSIDE Work Phone: Start: 07-25-2021 End: 07-25-2021 Transfusion of packed red blood cells Keri Hart MD Work Phone: Start: 07-25-2021 Radiologic exam abdo men 1 view Keri Hart MD Work Phone: Start: 07-25-2021 End: 07-25-2021 Blood count hemoglobin Missy Diallo Work Phone: Start: 07-25-2021 Electroencephalogram w/rec awake&drowsy Sindy Gudinohlman STUDENT DEVELOPMENT SPECIALIST - ELECTRIC TRACK SWITCH MAINTAINER Work Phone: Start: 07-25-2021 End: 07-25-2021 Calcium ionized Manolo Diallo Work Phone: Start: 07-25-2021 BASIC METABOLIC PANE L W/ REFLEX TO MG FOR LOW K Skylar Coyel MD Work Phone: Start: 07-25-2021 Cortisol total [...] ncd id imfluor stain ea Jany Francis STUDENT DEVELOPMENT SPECIALIST - ELECTRIC TRACK SWITCH MAINTAINER Work Phone: Start: 07-24-2021 End: 07-24-2021 Blood [...] W/ REFLEX TO MG FOR LOW K Skylar Coyle MD Work Phone: Start: 07-23-2021 Glucose blood reagent strip Silver Carmona MD Work Phone: Start: 07-23-2021 Glucose blood reagent strip Johnny Robledo MD Work Phone: Start: 07-23-2021 Glucose blood reagent strip Johnny Robledo MD Work Phone: Start: 07-23-2021 Glucose blood reagent strip Johnny Robledo MD Work Phone: Start: 07-23-2021 BASIC METABOLIC PANE L W/ REFLEX TO MG FOR LOW K Skylar Coyle MD Work Phone: Start: 07-22-2021 Glucose [...] W/ REFLEX TO MG FOR LOW K Skylar Coyle MD Work Phone: Start: 07-22-2021 End: [...] W/ REFLEX TO MG FOR LOW K Skylar Coyle MD Work Phone: Start: 07-21-2021 End: 07-21-2021 Blood count complete automated Johnny Robledo MD Work Phone: Start: 07-20-2021 Glucose blood reagent strip Johnny Robledo MD Work Phone: Start: 07-20-2021 Glucose blood reagent strip Johnny Robledo MD Work Phone: Start: 07-20-2021 Assay of troponin quantitative Vale Schmidt MD Work Phone: Start: 07-20-2021 End: 07-20-2021 Assay of troponin quantitative Vale Schmidt MD Work Phone: Start: 07-20-2021 Glucose blood reagent strip Johnny Robledo MD Work Phone: Start: 07-20-2021 Ecg routine ecg w/le ast 12 lds trcg only w/o i&r Deborah Castro MD Work Phone: Start: 07-20-2021 Assay of magnesium Donato Robledo MD Work Phone: Start: 07-20-2021 BASIC METABOLIC PANE L W/ REFLEX TO MG FOR LOW K Skylar Coyle MD Work Phone: Start: 07-20-2021 Radiologic exam ches t single view Deborah Castro MD Work Phone: Start: 07-19-2021 Radiologic exam abdo men 1 view Deborah Castro MD Work Phone: Start: 07-19-2021 Glucose blood reagent strip Johnny Robledo MD Work Phone: Start: 07-19-2021 Glucose blood reagent strip Johnny Robledo MD Work Phone: Start: 07-19-2021 Electrolyte panel Jaguar Robledo MD Work Phone: Start: 07-19-2021 Glucose blood reagent strip Johnny Robledo MD Work Phone: Start: 07-19-2021 Radiologic exam abdo men 1 view Johnny Robledo MD Work Phone: Start: 07-19-2021 End: 07-19-2021 Electrolyte panel Johnny Robledo MD Work Phone: Start: 07-19-2021 BASIC METABOLIC PANE L W/ REFLEX TO MG FOR LOW K Skylar Coyle MD Work Phone: Start: 07-18-2021 End: 07-18-2021 Electrolyte panel Johnny Robledo MD Work Phone: Start: 07-18-2021 Radiologic exam abdo men 1 view Johnny Robledo MD Work Phone: [...] 07-15-2021 Assay of glutamyltrase gamma Ava Stemple STUDENT DEVELOPMENT SPECIALIST - MANAGER INSIDE Work Phone: Start: 07-15-2021 BASIC METABOLIC PANE L W/ REFLEX TO MG FOR LOW K Tami Vega MD Work Phone: Start: 07-15-2021 Hepatic function panel Ava Stemple STUDENT DEVELOPMENT SPECIALIST - MANAGER INSIDE Work Phone: Start: 07-15-2021 Ecg routine ecg w/le ast 12 lds trcg only w/o i&r Tami Vega MD Work Phone: Start: 07-14-2021 Glucose blood reagent strip Silver Carmona MD Work Phone: Start: 07-14-2021 Glucose blood reagent strip Silver Carmona MD Work Phone: Start: 07-14-2021 Culture bacterial bl ood aerobic w/id isolates Ava Stemple STUDENT DEVELOPMENT SPECIALIST - MANAGER INSIDE Work Phone: Start: 07-14-2021 CULTURE, BLOOD 1 Bridge tte Stemple STUDENT DEVELOPMENT SPECIALIST - MANAGER INSIDE Work Phone: Start: 07-14-2021 Assay of magnesium Chri jefe Villarreal MD Work Phone: Start: 07-14-2021 BASIC [...] cervical 2 or 3 views Kam Prado APRN - MANAGER INSIDE Work Phone: Start: 07-10-2021 Insj prph ctr vad w/ subq port age 3 yr/> Meka Crowe MD Work Phone (unformatted): [phone] Start: 07-10-2021 COVID-19, RAPID Rufus Argueta MD Work Phone: Start: 07-10-2021 Ct cervical spine w/ o contrast material Kam Prado STUDENT DEVELOPMENT SPECIALIST - MANAGER INSIDE Work Phone: Start: 07-10-2021 Glucose blood reagent [...] K Hari Wagner MD Work Phone: Start: 07-09-2021 Blood count complete [...] Work Phone: Start: 07-08-2021 Assay of magnesium Tyreed paulette Wagner MD Work Phone: Start: 07-08-2021 BASIC METABOLIC PANE [...] Work Phone: Start: 07-07-2021 C-reactive protein Neal Argutea MD Work Phone: Start: 07-06-2021 Cul prsmptv pthgnc o rganism scrn w/colony estimj Alisia Cevallos DO Work Phone: Start: 07-06-2021 Glucose blood reagent strip Johnny Robledo MD Work Phone: Start: 07-06-2021 Fluoroscopy during operation Alisia Cevallos DO Work Phone: Start: 07-06-2021 Calcium ionized Johnny Robledo MD Work Phone: Start: 07-06-2021 OPEN HEART PANEL Dimas Robledo MD Work Phone: Start: 07-06-2021 Culture bacterial qu anttative colony count urine Johnny Robledo MD Work Phone: Start: 07-06-2021 End: 07-06-2021 Transfusion of packed red blood cells Nas Canales STUDENT DEVELOPMENT SPECIALIST [facility] Start: 07-06-2021 Blood typing serologic abo Johnny [...] 07-06-2021 End: 07-06-2021 CERVICAL LAMINECTOMY FUSION Alisia Cevallos DO Work Phone: Start: 07-06-2021 Glucose blood reagent strip Johnny Robledo MD Work Phone: Start: 07-06-2021 Culture bacterial qu anttative colony count urine Rufus Argueta MD Work Phone: Start: 07-06-2021 End: 07-06-2021 Assay of magnesium Hari Bernard MD Work Phone: Start: 07-06-2021 BASIC METABOLIC PANE L W/ REFLEX TO MG FOR LOW K Hari Wagner MD Work Phone: Start: 07-06-2021 C-reactive protein Neal Argueta MD Work Phone: Start: 07-05-2021 Glucose blood reagent strip Johnny Robledo MD Work Phone: Start: 07-05-2021 Mri brain brain stem w/o w/contrast material Sindy Sunshine STUDENT DEVELOPMENT SPECIALIST - ELECTRIC TRACK SWITCH MAINTAINER Work Phone: Start: 07-05-2021 Glucose blood reagent strip Johnny Robledo MD Work Phone: Start: 07-05-2021 Radiologic exam swal low function contrast study Sindy Jong STUDENT DEVELOPMENT SPECIALIST - ELECTRIC TRACK SWITCH MAINTAINER Work Phone: Start: 07-05-2021 End: 07-05-2021 Potassium serum plasma/whole blood Tami Vega MD Work Phone: Start: 07-05-2021 Glucose blood reagent strip Johnny Robledo MD Work Phone: Start: 07-05-2021 Assay of magnesium Tyreed paulette Wagner MD Work Phone: Start: 07-05-2021 BASIC METABOLIC PANE L W/ REFLEX TO MG FOR LOW K Hari Wagner MD Work Phone: Start: 07-05-2021 C-reactive protein Neal Argueta MD Work Phone: Start: 07-04-2021 Glucose blood reagent strip Johnny Robledo MD Work Phone: Start: 07-04-2021 Mri spinal canal cer vical w/o & w/contr matrl Kam Prado STUDENT DEVELOPMENT SPECIALIST - MANAGER INSIDE Work Phone: Start: 07-04-2021 Glucose blood reagent strip Johnny Robledo MD Work Phone: Start: 07-04-2021 End: 07-04-2021 CULTURE, BLOOD 1 Giulia Bray APR N - ELECTRIC TRACK SWITCH MAINTAINER Work Phone: Start: 07-04-2021 Glucose blood reagent strip Johnny Robledo MD Work Phone: Start: 6 End: 07-04-2021 Assay of magnesium Hari Wagner [...] study Meka Crowe MD Work Phone (unformatted): [phone] Start: 07-03-2021 Glucose blood reagent strip Johnny Robledo MD Work Phone: Start: 07-03-2021 Radiologic exam swal low function contrast study Rufus Argueta MD Work Phone: Start: 07-03-2021 Echo tthrc r-t 2d w/ wom-mode compl spec&colr d Meka Crowe MD Work Phone (unformatted): [phone] Start: 07-03-2021 Glucose blood reagent strip Johnny Robledo MD Work Phone: Start: 07-03-2021 Assay of magnesium Sahil Wagner MD Work Phone: Start: 07-03-2021 BASIC METABOLIC PANE L W/ REFLEX TO MG FOR LOW K Hari Wagner MD Work Phone: Start: 07-03-2021 C-reactive protein Neal Argueta MD Work Phone: Start: 07-03-2021 CULTURE, BLOOD 1 Silver Carmona MD Work Phone: Start: 07-02-2021 End: 07-02-2021 Blood count hemoglobin Hari Wagner MD Work Phone: Start: 07-02-2021 Potassium serum plas ma/whole blood Silver Carmona MD Work Phone: Start: 07-02-2021 Glucose blood reagent strip Silver Carmona MD Work Phone: Start: 07-02-2021 Blood count hemoglobin Hari Wagner MD Work Phone: Start: 07-02-2021 CULTURE, BLOOD 1 Moni Crowe MD Work Phone (unformatted): [phone] Start: 07-02-2021 End: 07-02-2021 Esophagoscopy intra/transmural needle [...] Work Phone: Start: 07-01-2021 C-reactive protein Neal torsten Argueta MD Work Phone: Start: 07-01-2021 CULTURE, BLOOD 1 Moni Crowe MD Work Phone (unformatted): [phone] Start: 06-30-2021 End: 06-30-2021 Blood count hemoglobin Hari Wagner MD Work Phone: Start: 06-30-2021 Glucose blood reagent strip Silver Carmona MD Work Phone: Start: 06-30-2021 Glucose blood reagent strip Jenifer Jewell MD Work Phone: Start: 06-30-2021 Radex foot complete minimum 3 views Becki Chang MD Work Phone: Start: 06-30-2021 End: 06-30-2021 Blood count hemoglobin Jonathan Power MD Work Phone: Start: 06-30-2021 CULTURE, BLOOD 1 Moni Crowe MD Work Phone (unformatted): [phone] Start: 06-30-2021 C-reactive protein Neal torsten Argueta MD Work Phone: Start: 06-29-2021 Glucose blood reagent strip Jenifer Jewell MD Work Phone: Start: 06-29-2021 Ct cervical spine w/ contrast material Meka Crowe MD Work Phone (unformatted): [phone] Start: 06-29-2021 Ct thorax w/o contra st material Meka Crowe MD Work Phone (unformatted): [phone] Start: 06-29-2021 Radiologic exam ches t single view Becki Chang MD Work Phone: Start: 06-29-2021 RESPIRATORY PANEL, Sallie MORA, WITH COVID-19 Becki Chang MD Work Phone: Start: 06-29-2021 Glucose blood reagent strip Jenifer Jewell MD Work Phone: Start: 06-29-2021 Virus centrifuge enh ncd id imfluor stain ea Becki Chang MD Work Phone: Start: 06-29-2021 Electroencephalogram w/rec awake&drowsy Emilie Lopez MD Work Phone: Start: 06-29-2021 Glucose blood reagent strip Jenifer Jewell MD Work Phone: Start: 06-29-2021 End: 06-29-2021 Assay of troponin quantitative Jonathan Steve MD Work Phone: Start: 06-29-2021 C-reactive protein [...] MD Work Phone: Start: 06-28-2021 SPECIMEN REJECTION Lorir jose Jewell MD Work Phone: Start: 06-28-2021 [...] Phone: Start: 06-28-2021 LACTATE, SEPSIS Israr U jose alfredo Lopez MD Work Phone: Start: 06-28-2021 Ecg routine ecg w/le ast 12 lds trcg only w/o i&r Wil Martinez MD Work Phone: Start: 06-28-2021 Ct [...] Work Phone: Start: 06-28-2021 Assay of salicylate Mar cedrick Tl VIVEROS Work Phone: Start: 06-28-2021 Creatine kinase total M ark Tl VIVEROS Work Phone: Start: 05-11-2021 CBC AND ELECTRONIC [...] Ophthalmic examinati on and evaluation Jef Sierra Jr., DPM Work Phone: Start: 12-19-2020 APPLY DRESSING [...] or At-Risk (2 of 2 - PPSV23) [facility] Start: 09-27-2024 End: 09-27-2024 Patient encounter procedure [facility] Comment on above: Arrived Start: 08-27-2024 End: 08-27-2024 Patient encounter procedure 08/27/2024 10:30 AM EDT Office Visit [facility] [address] [place] [phone] Ramona Campuzano PA [address] [place] [address] Arrived [facility] Comment on above: Arrived Start: 08-23-2024 End: 08-23-2024 Patient encounter procedure 08/23/2024 10:50 AM EDT Office Visit [facility] [address] [place] [phone] Nadia Quiñones, STUDENT DEVELOPMENT SPECIALIST-ELECTRIC TRACK SWITCH MAINTAINER [address] [place] [address] [facility] Start: 08-17-2024 End: 08-17-2024 Patient encounter procedure 08/17/2024 10:50 AM EDT Office Visit [facility] [address] [place] [address] Nadia Quiñones, STUDENT DEVELOPMENT SPECIALIST-ELECTRIC TRACK SWITCH MAINTAINER [address] [place] [address] [facility] Start: 08-12-2023 Lipid panel Lipids [facility] Start: 07-09-2023 End: 07-09-2023 Patient encounter procedure 07/09/2023 9:05 AM EDT Office Visit [facility] [address] [place] [phone] Nattylaisha Nadia Sousa, STUDENT DEVELOPMENT SPECIALIST-ELECTRIC TRACK SWITCH MAINTAINER [address] [address] [place] [address] [facility] Start: 10-01-2022 End: 10-01-2022 Patient encounter procedure 10/01/2022 Office Visit Neurosurgery Alisia Cevallos, DO [address] [place] [address] [facility] Start: 09-27-2022 GFR test (Diabetes, CKD 3-4, OR last GFR 15-59) GFR test (Diabetes, CKD 3-4, OR last GFR 15-59) [facility] Start: 09-09-2022 Hemoglobin A1c measurement A1C test (Diabetic or Prediabetic) [facility] Start: 07-24-2022 Screening for malignant neoplasm of colon [facility] [employer] [facility] Start: 06-30-2022 Diabetic foot examination [facility] Start: 06-28-2022 Lipid panel [facility] [employer] Start: 04-12-2022 Diabetic retinal exam Diabetic retinal exam [facility] Start: 04-12-2022 Diabetic retinal eye exam EYE EXAM [facility] Start: 04-12-2022 Glaucoma screening Diabetic retinal exam [facility] [employer] [facility] Start: 04-12-2022 [facility] Start: 03-15-2022 LIPIDS LIPIDS [facility] Start: 03-15-2022 Microalbumin measurement, urine, quantitative URINE MICROALBUMIN TEST [facility] Start: 03-15-2022 Thyroid stimulating hormone measurement TSH [facility] Start: 03-08-2022 End: 03-08-2022 Patient encounter procedure 03/08/2022 Office Visit Neurosurgery Alisia Cevallos, [address] [facility] [address] [place] [address] [facility] Start: 02-14-2022 Ophthalmic examination and evaluation Ophthalmology Exam [facility] Start: 12-27-2021 Ophthalmic examination and evaluation Ophthalmology Exam [facility] Start: 12-07-2021 End: 12-07-2021 Patient encounter procedure 12/07/2021 Office Visit Urology [facility] Start: 10-18-2021 Influenza vaccination Flu vaccine (Season Ended) [facility] Start: 10-18-2021 [facility] Start: 10-05-2021 Diabetic retinal eye exam DIABETIC EYE EXAM [facility] Start: 09-28-2021 Hemoglobin A1c measurement [facility] Start: 09-17-2021 Influenza vaccination Flu vaccine (#1) [facility] Start: 09-13-2021 Diabetic retinal eye exam DIABETIC EYE EXAM [facility] Start: 09-12-2021 Hemoglobin A1c measurement [facility]BA1C [facility] Start: 09-01-2021 LIPIDS LIPIDS [facility] Start: 09-01-2021 Microalbumin measurement, urine, quantitative URINE MICROALBUMIN TEST [facility] Start: 09-01-2021 Potassium [Moles/volume] in Serum or Plasma POTASSIUM [facility] Start: 08-22-2021 End: 08-22-2021 CERVICAL LAMINECTOMY FUSION [facility] Start: 08-22-2021 End: 08-22-2021 [facility] [place] Start: 08-16-2021 Diabetic retinal eye exam DIABETIC EYE EXAM [facility] Start: 08-08-2021 End: 08-08-2021 Patient encounter procedure 08/08/2021 Office Visit Infectious Diseases Meka Crowe MD [address] [facility], [address] [place], [place] [id number] [phone] (Work) [facility] Start: 07-31-2021 End: 07-31-2021 Patient encounter procedure 07/31/2021 Office Visit Podiatry Jef Sierra Jr., DPM [address] [facility] [place] [address] [facility] Start: 07-25-2021 End: 07-25-2021 Patient encounter procedure 07/25/2021 Office Visit Neurosurgery Alie Loza, STUDENT DEVELOPMENT SPECIALIST - ELECTRIC TRACK SWITCH MAINTAINER [address] [facility] [address] [place] [address] [facility] Start: 07-17-2021 End: 07-17-2021 Patient encounter procedure 07/17/2021 Office Visit Urology Kevin Quintanilla MD [address] [place] [address] [facility] Start: 07-13-2021 End: 07-10-2022 Basic metabolic 2000 panel - Serum or Plasma [facility] Work Phone: Start: 07-10-2021 End: 07-10-2021 Patient encounter procedure 07/10/2021 Office Visit Neurology Franck Mtz MD [address] [place] [phone] Neurology [facility] Start: 07-04-2021 Hemoglobin A1c measurement A1C [facility] Start: 07-04-2021 End: 07-04-2021 ambulatory 07/04/2021 Infusion Visit Neurology Infusion [facility] Start: 06-20-2021 End: 06-20-2021 ambulatory 06/20/2021 Infusion Visit Neurology Infusion [facility] Start: 06-18-2021 End: 06-18-2021 Patient encounter procedure 06/18/2021 Office Visit Endocrinology, Diabetes & Metabolism Luis Miguel Kaur MD [address] [place] [address] [facility] Endocrinology Start: 06-07-2021 End: 06-07-2021 Patient encounter procedure 06/07/2021 Office Visit Ophthalmology Sharon Hernandez MD [address] [facility] [address] [place] [address] [facility] Start: 06-06-2021 End: 06-06-2021 ambulatory 06/06/2021 Infusion Visit Neurology Infusion [facility] Start: 06-05-2021 End: 06-05-2021 Patient encounter procedure 06/05/2021 Office Visit Orthopaedics Yaritza Stanley MD [address] [place] [address] [facility] Start: 05-31-2021 End: 05-31-2021 Patient encounter procedure 05/31/2021 Office Visit Ophthalmology Sharon Hernandez MD [address] [facility] [address] [place] [phone] [facility] Start: 05-23-2021 End: 05-23-2021 ambulatory 05/23/2021 Infusion Visit Neurology [facility]fusion [facility] Start: 05-15-2021 End: 05-15-2021 Patient encounter procedure 05/15/2021 Office Visit Ophthalmology Olga Lidia Matos MD [address] [facility] [address] [place] [address] [facility] Start: 04-17-2021 End: 04-17-2021 Patient encounter procedure 04/17/2021 Office Visit Podiatry Jef Sierra Jr., DPSallie [address] [place] [address] [facility] Start: 03-06-2021 End: 03-06-2021 Patient encounter procedure 03/06/2021 Office Visit PodJef Wagner Jr., DPM [address] [place] [address] [facility] Podiatry Start: 03-04-2021 Hemoglobin A1c measurement [facility] Start: 02-20-2021 End: 02-20-2021 Patient encounter procedure 02/20/2021 Office Visit Jef Vieira Jr., DPSallie [address] [place] [address] [facility] Podiatry Start: 2021 End: 2021 Patient encounter procedure 2021 Office Visit Jef Vieira Jr., DPSallie [address] [place] [address] [facility] Podiatry Start: 01-30-2021 End: 01-30-2021 Patient encounter procedure 01/30/2021 Office Visit Jef Vieira Jr., DPSallie [address] [place] [address] [facility] Podiatry Start: 01-23-2021 End: 01-23-2021 Patient encounter procedure 01/23/2021 Office Visit Jef Vieira Jr., DPSallie [address] [place] [address] [facility] Podiatry Start: 01-16-2021 End: 01-16-2021 Patient encounter procedure 01/16/2021 Office Visit Jef Vieira Jr., DPM [address] [place] [address] [facility] Podiatry Start: 01-09-2021 End: 01-09-2021 Patient encounter procedure 01/09/2021 Office Visit PodJef Wagner Jr., DPSallie [address] [place] [address] [facility] Start: 01-01-2021 End: 01-01-2021 Patient encounter procedure 01/01/2021 Office Visit Neurology Nurys Thornton, STUDENT DEVELOPMENT SPECIALIST-ELECTRIC TRACK SWITCH MAINTAINER [address] [phone] Neurology [facility] Start: 12-26-2020 End: 12-26-2020 Patient encounter procedure 12/26/2020 Office Visit PodJef Wagner Jr., DPM [address] [place] [address] [facility] Podiatry Start: 12-02-2020 Hemoglobin A1c measurement A1C [facility] Start: 11-30-2020 End: 11-30-2020 Patient encounter procedure 11/30/2020 Office Visit Ophthalmology Sharon Hernandez MD [address] [phone] [facility] Start: 11-16-2020 End: 11-16-2020 Patient encounter procedure 11/16/2020 Office Visit PodJef Wagner Jr., DPM [address] [place] [address] [facility] Physician [facility] Podiatry Start: 11-16-2020 End: 11-16-2020 Patient encounter procedure 11/16/2020 Office Visit Endocrinology, Diabetes & Metabolism Luis Miguel Kaur MD [address] [place] [address] [facility] Endocrinology Start: 11-14-2020 End: 11-14-2020 Patient encounter procedure 11/14/2020 Office Visit Ophthalmology Olga Lidia Matos MD [address] [place] [address] [facility] Start: 11-07-2020 End: 11-07-2020 Patient encounter procedure 11/07/2020 Office Visit Neurology Nurys Thornton, STUDENT DEVELOPMENT SPECIALIST-ELECTRIC TRACK SWITCH MAINTAINER [address] [place] [phone] Neurology [facility] Start: 10-18-2020 Influenza vaccination [facility] Start: 10-18-2020 End: 10-18-2020 Patient encounter procedure 10/18/2020 Office Visit Ophthalmology Sharon Hernandez MD [address] [place] [address] [facility] Start: 10-17-2020 End: 10-17-2020 ambulatory 10/17/2020 Infusion Visit Neurology [facility]fusion [facility] Start: 10-10-2020 End: 10-10-2020 Patient encounter procedure 10/10/2020 Office Visit Ophthalmology Olga Lidia Matos MD [address] [place] [address] [facility] Start: 10-06-2020 Pneumococcal 0-64 years Vaccine (2 - PCV) Pneumococcal 0-64 years Vaccine (2 - PCV) [facility] Start: 10-06-2020 [facility] Start: 10-05-2020 End: 10-05-2020 Patient encounter procedure 10/05/2020 Office Visit Ophthalmology Sharon Hernandez MD [address] [place] [address] [facility] Start: 10-03-2020 End: 10-03-2020 ambulatory [facility] Start: 10-03-2020 End: 10-03-2020 Patient encounter procedure 10/03/2020 Office Visit PodiatrJef Boykin Jr., DPM [address] [place] [address] [phone] [facility] Start: 09-26-2020 End: 09-26-2021 SENSORY MOTOR NEUROPATHY PANEL [facility] Work Phone: Comment on above: Expected: 09/26/2020, Expires: 2 Start: 09-26-2020 End: 09-26-2021 VEGF [facility] Comment on above: Expected: 09/26/2020, Expires: 2 Start: 09-19-2020 End: 09-19-2020 ambulatory 09/19/2020 Infusion Visit Neurology [facility] Start: 09-14-2020 End: 09-14-2020 Patient encounter procedure 09/14/2020 Office Visit Podiatry Jef Sierra Jr., DPM [address] [place] [address] [phone] [facility] Start: 10-19-2019 Influenza vaccination Flu vaccine (#1) [place], [place] Start: 10-19-2019 Influenza vaccination given Sequential Influenza Vaccine (#1) [facility] Start: 08-25-2019 Creatinine measurement Creatinine monitoring [facility] [place] [place] Start: 08-25-2019 Potassium monitoring Potassium monitoring [place], [place] Start: 08-12-2019 Urine screening for protein [facility] [employer] Start: 12-26-2018 LIPIDS LIPIDS [facility] Work Phone: Start: 12-19-2018 Diabetic retinal eye exam DIABETIC EYE EXAM [facility] Work Phone: Start: 10-09-2018 Thyrotropin Qn TSH [facility] Work Phone: Start: 08-04-2018 Annual Wellness Visit (AWV) Annual Wellness Visit (AWV) ARASELI CRUZ [facility] Start: 07-19-2018 HbA1c (Bld) [Mass fraction] A1C test (Diabetic or Prediabetic) [place], [place] Start: 07-06-2018 End: 07-06-2018 Ambulatory 07/06/2018 Office Visit Neurology Nurys Thornton, STUDENT DEVELOPMENT SPECIALIST-ELECTRIC TRACK SWITCH MAINTAINER [address] [address] Neurology [facility] Start: 06-25-2018 Hemoglobin A1c/Hemoglobin.total mass fraction (Bld) HBA1C TEST [facility] Work Phone: Start: 04-04-2018 Protein mass conc MAMMOGRAM SCREENING DISCUSSION [facility] Work Phone: Start: 04-04-2018 Screening mammography MAM[facility]GRAM SCREENING DISCUSSION [facility] Start: 04-02-2018 End: 04-02-2018 Ambulatory 04/02/2018 Appointment NEUROPHYSIOLOGY Estefania Markham MD [address] [place] [phone] Department of Neurology Start: 03-20-2018 End: 03-20-2018 Ambulatory 03/20/2018 Office Visit Ophthalmology Grace Washington MD [address] [place] [address] [facility] Start: 03-05-2018 End: 03-05-2018 Ambulatory Division of Hematology & Oncology Start: 02-03-2018 End: 02-03-2018 Ambulatory 02/03/2018 Office Visit Sleep Medicine Stefani Estrada MD [address] [place] [address] [address] [place] [address] Department of Sleep Medicine Start: 01-22-2018 End: 01-22-2018 Ambulatory [facility] Start: 10-18-2017 Influenza vaccination [facility] Start: 10-18-2017 Influenza vaccination given SEQUENTIAL INFLUENZA VACCINE (#1) [facility] Start: 06-28-2017 Lipid panel Lipid screen [place], [place] Start: 04-11-2017 Ambulatory 04/11/2017 Hospital Encounter Martha Yan, DPM [address] [place] [address] [phone] [facility] Start: 04-07-2017 Ambulatory 04/07/2017 Office Visit Cardiology Pili Gilliam, DPM [address] [place] [address] [phone] Reji Miramontes III, DO [address] [place] [address] [phone] [facility] Start: 10-18-2016 Influenza vaccination SEQUENTIAL INFLUENZA VACCINE (#1) [facility] Start: 06-25-2014 Diabetic microalbuminuria test Diabetic microalbuminuria test [place], [place] Start: 12-30-2013 Administration of herpes zoster vaccine Zoster Vaccines (2 of 3) [facility] Start: 12-30-2013 Shingles vaccine (1 of 2) Shingles vaccine (1 of 2) [facility] Start: 12-30-2013 Shingles vaccine (2 of 3) Shingles vaccine (2 of 3) [facility] Start: 12-30-2013 Zoster vaccine hzv live for subcutaneous use ZOSTER (SHINGLES) VACCINE (2 of 3) [facility] Start: 12-30-2013 [facility] Start: 2013 Administration of herpes zoster vaccine Zoster Vaccines (1 of 2) [facility] Start: 2013 Colonoscopy COLON CANCER SCREENING DISCUSSION [facility] Work Phone: Start: 2013 Protein mass conc COLON CANCER SCREENING DISCUSSION [facility] Work Phone: Start: 2013 Screening for malignant neoplasm of breast [facility] Start: 2013 Screening for malignant neoplasm of colon [facility] Start: 2013 Shingles Vaccine (1 of 2) Shingles Vaccine (1 of 2) [place] Start: 2013 Zoster vaccine hzv live for subcutaneous use ZOSTER (SHINGLES) VACCINE (1 of 2) [facility] Start: 02-07-2008 Colonoscopy COLORECTAL CANCER SCREENING DISCUSSION [facility] Start: 02-07-2008 Screening for malignant neoplasm of colon [facility] Start: 2003 Screening for malignant neoplasm of breast Mammogram [facility] Start: 1993 Screening for malignant neoplasm of cervix [facility] Start: 02-07-1984 Screening for malignant neoplasm of cervix [facility] Start: 1982 DTaP/Tdap/Td vaccine (1 - Tdap) DTaP/Tdap/Td vaccine (1 - Tdap) [facility] Start: 1982 Hepatitis B vaccine (1 of 3 - Risk 3-dose series) Hepatitis B vaccine (1 of 3 - Risk 3-dose series) [facility] Start: 1982 Third diphtheria, tetanus and acellular pertussis (DTaP) vaccination TDAP (ADULT) [facility] Start: 1982 [facility] Start: 1981 Hepatitis C antibody, confirmatory test Hepatitis C Screening [facility] Start: 1981 Hepatitis C screening [facility] Start: 1981 Microalbumin measurement, urine, quantitative URINE MICROALBUMIN TEST [facility] Work Phone: Start: 1981 Tetanus vaccination TETANUS [facility] Start: 1979 COVID-19 Vaccine (1 of 2) COVID-19 Vaccine (1 of 2) [facility] Start: 1978 HIV screening [facility] Start: 02-07-1976 HIV screening HIV SCREENING DISCUSSION [facility] Work Phone: Start: 1975 Adolescent depression screening assessment Depression Screening (PHQ9) [facility] Start: 1975 COVID-19 Vaccine (1) COVID-19 Vaccine (1) [facility] Start: 1975 Depression Screen Depression Screen [facility] Start: 1975 Depression screening using PHQ-9 (Patient Health Questionnaire 9) score [facility] Start: 1975 [facility] [employer] Start: 1973 Diabetic foot examination (regime/therapy) [facility] Start: 1973 Diabetic retinal exam Diabetic retinal exam [facility] [place] Start: 1973 Microalbumin measurement, urine, quantitative Urine Microalbumin [facility] Start: 1973 Ophthalmic examination and evaluation OPHTHALMOLOGY EXAM [facility] Start: 1973 Urine, microalbumin URINE MICROALBUMIN [facility] Start: 1969 Pneumococcal Vaccine: Ped or At-Risk (1 of 2 - PPSV23) Pneumococcal Vaccine: Ped or At-Risk (1 of 2 - PPSV23) [facility] Start: 02-07-1968 COVID-19 Vaccine (1) COVID-19 Vaccine (1) [facility] Start: 02-07-1968 [facility] [employer] Start: 1966 History and physical examination, annual for health maintenance Wellness Visit [facility] Start: 1963 COVID-19 Vaccine (#1) COVID-19 Vaccine (#1) [facility] [employer] Start: 1963 Annual Wellness Visit (AWV) Annual Wellness Visit (AWV) [facility] [employer] Start: 1963 Diabetic foot examination DIABETIC FOOT EXAM [facility] Start: 1963 HbA1c HEMOGLOBIN A1C [facility] Start: 1963 Hemoglobin A1c measurement A1C [facility] Start: 1963 Hepatitis C antibody, confirmatory test HEPATITIS C SCREENING [facility] Start: 1963 HEPATITIS C SCREENING HEPATITIS C SCREENING [facility] Start: 1963 Hepatitis C screening Hepatitis C screen [facility] [place] Start: 1963 Protein mass conc [facility] Start: 1963 Screening colonoscopy COLONOSCOPY [facility] Start: 1963 Screening for malignant neoplasm of cervix PAP SMEAR [facility] Start: 1963 Screening for malignant neoplasm of colon Colorectal Cancer Screening: Colonoscopy [facility] Start: 1963 Screening mammography Mammogram [facility] Start: 1963 Tetanus vaccination [facility] Start: 1963 [facility] Aerobic culture Aerobic culture Microbiology Timed Impetigo Release Upon Ordering for 1 Occurrences starting 08/27/2024 [facility] [employer] Work Phone: Comment on above: Release Upon Ordering for 1 Occurrences starting 08/27/2024 End: 09-14-2021 Aerobic microbial culture Wound Aerobic Culture Microbiology Routine Foot abscess, left 1 Occurrences starting 09/14/2020 until 09/14/2021 [facility] Comment on above: 1 Occurrences starting 09/14/2020 until 09/14/2021 Aerobic microbial culture Wound Aerobic Culture Microbiology Routine Wound infection Partial thickness burn of single finger of right hand excluding thumb, initial encounter 05/01/2021 3:00 PM EDT [place] Work Phone: Basic Metabolic Pane l w/ Reflex to MG [facility] Work Phone: Basic Metabolic Pane l w/ Reflex to MG [facility] Work Phone: BLOOD GAS, ARTERIAL [facility] [employer] Work Phone: Blood gas, arterial [facility] [employer] Work Phone: C-reactive protein [facility] [employer] Work Phone: CBC W Auto Different ial panel - Blood [facility] [employer] Work Phone: End: 09-08-2021 CBC W Auto Differential panel - Blood [facility] [employer] Work Phone: CBC W Auto Different ial panel - Blood [facility] [employer] Work Phone: Continuous pulse oximetry [facility] Phone: End: 02-17-2020 COVID-19 COVID-19 Lab Routine Once for 1 Occurrences starting 02/17/2020 until 02/17/2020 [facility] [place] Comment on above: Once for 1 Occurrences starting 02/17/20 20 until 02/17/2020 End: 09-08-2021 Creatinine [Mass/volume] in Serum or Plasma [facility] [employer] Work Phone: Culture, Anaerobic a nd Aerobic [facility] [employer] Work Phone: End: 06-28-2021 Culture, Blood 1 [employer] Phone: Comment on above: One Time for 1 Occurrences starting 06/17 until 06/28/2021 Culture, Blood 1 [employer] Phone: Culture, Blood 1 [employer] Phone: Culture, Blood 1 [employer] Phone: Culture,Bacterial Culture,Bacter ial Routine 03/14/2017 9:30 AM [facility] Work Phone: Glucose [Mass/volume ] in Serum or Plasma [employer] Phone: Glucose [Mass/volume ] in Serum or Plasma [employer] Phone: End: 08-02-2021 Glucose [Mass/volume] in Serum or Plasma [employer] Phone: End: 07-26-2021 Initiate RT Adult Mechanical Ventilation Protocol [employer] Phone: Mechanical Ventilati on with default initial settings [employer] Phone: Oxygen therapy [Mini mum Data Set] [employer] Phone: Oxygen therapy [Mini mum Data Set] [employer] Phone: End: 06-28-2021 PREVIOUS SPECIMEN [employer] Phone: End: 07-15-2021 PREVIOUS SPECIMEN [employer] Phone: End: 07-18-2021 PREVIOUS SPECIMEN [employer] Phone: End: 08-08-2021 PREVIOUS SPECIMEN [employer] Phone: Respiratory Care Evaluation and Treat [employer] Phone: End: 07-05-2021 SANDWICH MAKER clinical swallow evaluation [employer] Work Phone: End: 06-29-2021 Speech and language therapy regime [facility] Work Phone: Spontaneous Breathin g Trial (SBT) [facility] Work Phone: End: 07-14-2021 Wound ostomy eval and treat [facility] Work Phone: Immunizations Immunization Date Immunization Notes Care Provider [facility] 10-07-2019 influenza virus vacc ine, unspecified formulation Jef Sierra Jr., DPM Work Phone: [facility] 10-07-2019 pneumococcal vaccine , unspecified formulation Jef Sierra Jr., DPM Work Phone: [facility] 11-04-2013 influenza virus vacc ine, whole virus Franck Mtz MD Work Phone: [facility] 11-04-2013 influenza, seasonal, injectable Franck Mtz MD Work Phone: [facility] 11-04-2013 zoster vaccine, live Franck Mtz MD Work Phone: [facility] 11-04-2013 influenza virus vacc ine, unspecified formulation Luis Miguel Darm[facility] Work Phone: 11-04-2013 zoster vaccine, unspecified formulation Franck Mtz MD Work Phone: [facility] 07-29-2012 pneumococcal polysaccharide vaccine, 23 valent Franck Mtz MD Work Phone: [facility] Payers Date Payer Category Payer Medicaid MEDICAID [facility] er [id number] 2022 Medicaid [id number] 2021 Self-pay [id number] 2017 Unknown [id number] 2002 Medicare [id number] 2.16.840.1.276795.3.249.13 2002 Medicare [id number]. 1.13.385.2. 7.3.854205.315 2002 Medicare [id number] 1.2.840.932915.1.13.385.2. 7.3.082517.315 2002 Government (not [facility] or Medicaid) [facility] 1.2.840.793521.1.13.693.2. 7.9.848191.205489.315 2002 Unknown xxxxxxxxx 2.16.840.1.379736.3.249.13 2001 Unknown [id number] 1.2.840.515669.1.13.385.2. 7.3.238108.315 2001 Unknown 1.2.840.215332. 1.13.385.2. 7.3.042559.315 1963 Unknown [id number] 2.16.840.1.135161.3.579.2. 902 1963 Unknown [id number] 2.16.840.1.246787.3.579.2. 593 1963 Unknown [id number] 2.16.840.1.225520.3.579.2. 593 1963 Unknown [id number] 2.16.840.1.868189.3.579.2. 903 1963 Unknown [id number] 2.16.840.1.996398.3.579.2. 903 1963 Unknown [id number] 2.16.840.1.717173.3.579.2. 903 1963 Unknown [id number] 2.16.840.1.419204.3.579.2. 903 1963 Unknown [id number] 2.16.840.1.173496.3.579.2. 903 1963 Unknown [id number] 2.16.840.1.891328.3.579.2. 903 1963 Unknown [id number] 2.16.840.1.011055.3.579.2. 903 1963 Unknown [id number] 2.16.840.1.617085.3.579.2. 903 1963 Unknown [id number] 2.16.840.1.763882.3.579.2. 903 1963 Unknown [id number] 2.16.840.1.888045.3.579.2. 903 1963 Unknown [id number] 2.16.840.1.931786.3.579.2. 903 1963 Unknown [id number] 2.16.840.1.240897.3.579.2. 903 1963 Unknown [id number] 2.16.840.1.987010.3.579.2. 903 1963 Unknown [id number] 2.16.840.1.041992.3.579.2. 903 1963 Unknown [id number] 2.16.840.1.015821.3.579.2. 903 1963 Unknown [id number] 2.16.840.1.482160.3.579.2. 903 1963 Unknown [id number] 2.16.840.1.211120.3.579.2. 903 1963 Unknown [id number] 2.16.840.1.367541.3.579.2. 1143 1963 Unknown [id number] 2.16.840.1.697693.3.579.2. 1143 1963 Unknown [id number] 2.16.840.1.627156.3.579.2. 903 1963 Unknown [id number] 2.16.840.1.957481.3.579.2. 903 1963 Unknown [id number] 2.16.840.1.336530.3.579.2. 903 1963 Unknown [id number] 2.16.840.1.986215.3.579.2. 647 1963 Unknown [id number] 2.16.840.1.098618.3.579.2. 594 1963 Unknown [id number] 2.16.840.1.374700.3.579.2. 594 1963 Unknown [id number] 2.16.840.1.250634.3.579.2. 594 1963 Unknown [id number] 2.16.840.1.583322.3.579.2. 594 1963 Unknown [id number] 2.16.840.1.639209.3.579.2. 594 1963 Unknown [id number] 2.16.840.1.315653.3.579.2. 594 1963 Unknown [id number] 2.16.840.1.924186.3.579.2. 594 1963 Unknown [id number] 2.16.840.1.265242.3.579.2. 594 1963 Unknown [id number] 2.16.840.1.655411.3.579.2. 594 1963 Unknown [id number] 2.16.840.1.924383.3.579.2. 594 1963 Unknown [id number] 2.16.840.1.797234.3.579.2. 594 1963 Unknown [id number] 2.16.840.1.275548.3.579.2. 594 1963 Unknown [id number] 2.16.840.1.049637.3.579.2. 594 1963 Unknown [id number] 2.16.840.1.341168.3.579.2. 594 1963 Unknown [id number] 2.16.840.1.910001.3.579.2. 594 1963 Unknown [id number] 2.16.840.1.629578.3.579.2. 594 1963 Unknown [id number] 2.16.840.1.644001.3.579.2. 594 1963 Unknown [id number] 2.16.840.1.022336.3.579.2. 594 1963 Unknown [id number] 2.16.840.1.734068.3.579.2. 594 1963 Unknown [id number] 2.16.840.1.612346.3.579.2. 594 1963 Unknown [id number] 2.16.840.1.256323.3.579.2. 594 1963 Unknown [id number] 2.16.840.1.627366.3.579.2. 594 1963 Unknown [id number] 2.16.840.1.697109.3.579.2. 594 1963 Unknown [id number] 2.16.840.1.827874.3.579.2. 174 1963 Unknown [id number] 2.16.840.1.062085.3.579.2. 175 1963 Unknown [id number] 2.16.840.1.891639.3.579.2. 175 1963 Unknown [id number] 2.16.840.1.881930.3.579.2. 727 1963 Unknown [id number] 2.16.840.1.716860.3.579.2. 727 1963 Unknown [id number] 2.16.840.1.720071.3.579.2. 727 1963 Unknown [id number] 2.16.840.1.916294.3.579.2. 727 1963 Unknown [id number] 2.16.840.1.220223.3.579.2. 727 1963 Unknown [id number] 2.16.840.1.087797.3.579.2. 1259 1963 Unknown [id number] 2.16.840.1.945732.3.579.2. 1259 1963 Unknown [id number] 2.16.840.1.453529.3.579.2. 1259 1959 Medicare [id number] 1959 Unknown [id number] 2.16.840.1.133236.3.249.13 Medicare [id number] 2.16.840.1.733112.3.249.13 Unknown [id number] Unknown [id number] 2.16.840.1.224817.3.579.2. 531 Social History Date Type Detail Facility Start: 04-07-2017 End: 12-04-2021 Tobacco smoking status PAIS Former smoker [facility] End: 02-18-1996 History of tobacco use Current smoker [facility] Start: 1965 Sex Assigned At Not on file [facility] [employer] Work Phone: Start: 03-15-2017 End: 03-29-2017 Tobacco smoking status NHIS Unknown if ever smoked [facility] End: 02-18-1996 History of tobacco use Cigarette Smoker [facility] Work Phone: Start: 04-07-2017 Tobacco Comment doesn't rememb er how much she smoked [facility] Start: 04-07-2017 Alcohol Comment [facility] Start: 12-20-2019 End: 12-04-2021 Tobacco use and exposure Never used [facility] Start: 12-20-2019 End: 05-01-2021 Alcohol intake Current drinker of alcohol (finding) [facility] Start: 04-07-2021 End: 07-13-2021 Exposure to SARS-CoV-2 (event) Not sure [facility] Start: 10-05-2017 End: 04-02-2022 Alcohol intake Current non-drinker of alcohol (finding) [place], [place] Start: 1965 Sex Assigned At Female F [facility] Gender identity Not on file [facility] are Medical Equipment Procedure Code Equipment Code Equipment Origin al Text Equipment Identifier Dates 1 strip by Unkno wn route 3 times daily (take before meals). [id number] Start: 10-13-2017 End: 01-07-2018 Lens Au00t0 D 23 .5 - [id number] Start: 12-23-2018 Osc Tissue [place] [id number] Start: 02-23-2020 Implant Opth 250 sq Mm Jo 1 Qdrnt Ins Fx Sut Hl Rcs Knt Cpb - [id number] Start: 02-23-2020 [id number] Start: 07-06-2021 Set Screw Spinal M6 - [id number] Start: 09-25-2021 Clinical Notes 09-13-2020 to 09-27-2024 Skylar Whitfield, - 09/27/2024 1:15 PM COY Li - 08/27/2024 10:30 AM Deangelo Whitfield, - 06/28/2024 2:15 PM LISSETTE MalinP - 08/10/2021 5:50 PM EDTDischarjuan ramon [facility] Note Date & Type Note Facility 09-27-2024 Note Right Eye Reliability was good. Progression has been stable. Foveal threshold was normal. Findings include superior arcuate defect, superior nasal step defect. Left Eye Reliability was good. Progression has been stable. Foveal threshold was normal. Findings include superior arcuate defect, superior nasal step defect, inferior nasal step defect. [facility] 09-27-2024 History of Present illness Narrative Images from the original note were not [...] yearly dilated examinations, but to contact us immediately for any problems or concerns. Continue aggressive [...] laser capsulotomy, they are to notify their senior tax accountant promptly if they have a significant change in symptoms, such as flashes of light (photopsia), an increase in floaters, loss of visual field or decrease in visual acuity. Dry eyes - Dry Eyes OU -- Environmental changes to minimize dryness and exposure and the use of artificial tears were recommended. documented in this encounter [facility] 08-27-2024 History of Present illness Narrative Follow-Up: Diagnosis: Atopic dermatitis . Location: hands, [...] cleansers to prevent flares. Notify office if flaring despite treatment. Related Medications triamcinolone (Kenalog) 0.1 % [...] 1 - Aerobic culture Account Name: Marisa Sumi NPI: Ramona Campuzano [id number] Next Visit: prn for any new/changing lesions documented in this encounter [facility] 06-28-2024 History of Present illness Narrative Images from the original note were not [...] status post (s/p) gen 1 iStent - Start Latanoprost right eye (OD) at bedtime and change Brimonidine to Combigan both eyes (OU) BID. 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 mellitus (CMS/HCC) - Diabetes Mellitus with signs of diabetic retinopathy on dilated retinal examination today OU: Discussed the pathophysiology of diabetes and its effect on the eye. Stressed the importance of strong glucose control. Advised of importance of at least yearly dilated examinations, but to contact us immediately for any problems or concerns. Continue aggressive [...] laser capsulotomy, they are to notify their senior tax accountant promptly if they have a significant change in symptoms, such as flashes of light (photopsia), an increase in floaters, loss of visual field or decrease in visual acuity. Dry eyes - Dry Eyes OU -- Environmental changes to minimize dryness and exposure and the use of artificial tears were recommended. documented in this encounter [facility] 04-16-2024 Note ED Patient Education Note Orthopedics [...] Managing pain, stiffness, and swelling ??? Take oimz-mrl-mafbapz and prescription medicines only as told by [...] day. ??? Do not sit, drive, or forest engineer one place for more than 30 minutes [...] problems. ??? Y (more content not included)... [facility] 08-23-2021 Note MR#: [id number] I [facility] Pt. Name: Meg Georges Admitted: 08/19/2021 [...] PEG tube. The patient recently was at [facility] in June for complaint of MSSA septicemia. She was trached at that time. She also was found to have an epidural phlegmon, which was causing compression on the cervicomedullary junction. She was given 6 weeks course of antibiotics for osteomyelitis. She had surgery at [facility] postoperatively here after the packing was removed from her nares as she was found to have leaking from her nares. She had a CT facial and brain, which showed a possible CSF leak. Decision was made by our Neurosurgery team and our SICU team to transfer her back to her surgeon since . She was accepted and transferred back to the ICU at [place]. The patient was discharged in stable condition. Electronically Signed by: Jerry Pozo MD 08/23/2021 11:13 A Jerry Pozo MD I have reviewed this discharge summary and confirmed the resident's documentation. Please note that there may be additional documentation from me. Date Dict: 08/22/2021/05:19 P/Mai Grier ELECTRIC TRACK SWITCH MAINTAINER Date Trans: 08/23/2021 07:42 A/genaro [id number] cc: Johny Beckman M.D. [address] [place] [address]. Emergency Medicine [facility] [address] Neri Santa D.O. [address] [place] [address] [facility] [address] [facility] 08-10-2021 History of Present illness Narrative 08/10/211749 [...] Unable to assess Fluid Accumulation: Mild Extremities,Generalized Vmware Consultant Strength: Not Performed Nutrition Assessment: Chart reviewed. [...] Anthropometric Measures: Height: 5' 5 (165.1 cm) Draper Body Weight (IBW): 125 lbs (57 kg) [...] were not included. [facility] -Progress Note Today's Date and Time: 08/10/2021, [...] of C2 fx noted Infection Control Recommendations Korbel Precautions Isolate for Covid until 07-23-21 Antimicrobial [...] through 08-20-21. Patient was transferred back to [facility] on 07-14-21 because of a positive [...] EXPLORATION OF EPIDURAL PHLEGMON performed by Alisia Cevallos DO at [facility] OR CHOLECYSTECTOMY EYE SURGERY [address] shunt for open angle glaucoma. MRI compatible- device is all silicone LAMINECTOMY 07/06/2021 Posterior C1, LEFT C2 RHIZOTOMY, EXPLORATION OF EPIDURAL PHLEGMON PICC INSERTION VASCULAR ACCESS TEAM 07/10/2021 SHOULDER SURGERY right TRACHEOSTOMY 07/30/2021 TRACHEOSTOMY N/A 07/30/2021 TRACHEOTOMY performed by Erica Santiago MD at [facility] OR UPPER GASTROINTESTINAL ENDOSCOPY N/A 07/02/2021 EGD ESOPHAGOGASTRODUODENOSCOPY performed by Hari Wagner MD at [facility] Endoscopy Medications: insulin glargine 10 Units [...] Friends and Family: Not on file Attends Restoration Services: Not on file Active Member of [...] extension (from neutral), as above. Medical Decision Dtkshl-Ltanuupx-Zxhwn: SARS-CoV-2, Rapid COVID-19, Rapid Collected: 07/13/21 3315 Result status: Final Resulting lab: [facility] Reference range: Not Detected Value: [...] this assay. Fact sheet for Healthcare Providers: https://www.fda.gov/media/970043/downl oad Fact sheet for Patients: https://www.fda.gov/media/130753/downl oad Methodology: Isothermal Nucleic Acid Amplification Culture, Respiratory Order: [id number] Status: Final result Visible to patient: No (not released) Next appt: Today at 02:30 PM in Radiology (STV MRI RM 1 (1.5T)) Specimen Information: Sputum Aspirated 0 Result Notes Component 07/24/21 6617 Specimen Description .ASPIRATED SPUTUM Direct Exam < 10 EPITHELIAL CELLS/LPF Direct Exam >25 NEUTROPHILS/LPF Direct Exam MANY GRAM NEGATIVE RODS Abnormal Culture KLEBSIELLA AEROGENES HEAVY GROWTH Abnormal Culture NO NORMAL ROB [facility] Susceptibility Klebsiella aerogenes (1) Antibiotic [...] Patient's name: Meg Georges Patient's account/billing number: [id number] Patient's Date of : 1965 Age: 56 [...] patient was sent to the ED in [facility] from outpatient infusion center where she had [...] Date 08/10/21 0000 - 08/10/21 2359 Shift [id number] 8486-1653 3956-5571 24 Hour Total INTAKE I.V.(mL/kg) 169(2.9) 169(2.9) [...] Oral Q6H carvedilol 25 mg Oral BID latanoprost 1 drop Both Eyes Nightly lactobacillus 1 capsule Oral Daily with breakfast gabapentin 200 mg Oral TID nafcillin 2,000 mg IntraVENous Q6H [Held by provider] aspirin 325 mg Oral Daily [Held by provider] calcium carbonate-vitamin D3 2 tablet Oral Daily levothyroxine 100 mcg Oral Daily enoxaparin 40 mg SubCUTAneous Daily Continuous Infusions: dexmedetomidine 0.4 mcg/kg/hr (08/10/21746) sodium chloride 10 mL/hr at 08/10/21 0747 [...] Results Component Value Date PHART 7.406 07/06/2021 [id number] 34.8 07/06/2021 PO2ART 279.0 07/06/2021 TFG7GTV 21.4 07/06/2021 F2UMHXIV 99.4 07/06/2021 FIO2 30.0 08/05/2021 Lactic Acid: [...] CREATININE 0.59 0.54 CL 108* 107 CO2 22 24 Magnesium: Lab Results Component Value Date [...] No results for input(s): LABIRON, TIBC, FERRITIN, [id number], FOLATE, OCCULTBLD in the last 72 hours. [...] MD Department of Internal Medicine/ Critical care [facility]) 08/10/2021, 7:54 AM Attending Physician Statement I [...] this chart was generated using voice recognition [employer] dictation software. Although every effort was made to ensure the accuracy of this automated milk drier, some errors in milk drier may have occurred. PALLIATIVE CARE NURSING ASSESSMENT Patient: Meg Georges Room: 3024/3024- Reason For Consult Goals of care evaluation Distress management Guidance and support Facilitate communications Assistance in coordinating care Code Status: Full Code Summary: Pt visit, stable on cpap trial. Awaiting placement to [facility]. Spoke with COURTNEY Santamaria 08/10/21. I gave her suggestions on how to locate Living Will/ Will information. Discussed code classifications again. She confirms understanding and thinks her sister would want to remain full code. Acknowledged and supported Hina in this decision as well as moving forward with transfer to [facility]. Encouraged her to call as needed. Impression: [...] encephalopathy MSSA (methicillin susceptible Staphylococcus aureus) septicemia ([facility]) CRP elevated Bandemia Allergy to multiple antibiotics [...] is aware of plan to move to [facility] when bed available. She was told her [...] Hina relates patient filled out DPOAH at [facility] in [place]. I suggested that she continue to try to contact Meg's fund accounting manager but that she could contact [facility] and see if they have Living [...] Supported sister in this, discussed transfer to [facility] soon as bed is available. Wished patient and family well moving forward. Handbag Stitcher Leeann UREÑA, RN, ONN-CG [place] Office: [phone] [place] Office: [phone] [facility] Office: [phone] For Symptom Management Clinic scheduling please call [phone] Images from the original note were not included. [facility] -Progress Note Today's Date and Time: 08/09/2021, [...] of C2 fx noted Infection Control Recommendations Korbel Precautions Isolate for Covid until 07-23-21 Antimicrobial [...] through 08-20-21. Patient was transferred back to [facility] on 07-14-21 because of a positive [...] EXPLORATION OF EPIDURAL PHLEGMON performed by Alisia Cevallos DO at [facility] OR CHOLECYSTECTOMY EYE SURGERY [address] shunt for open angle glaucoma. MRI compatible- device is all silicone LAMINECTOMY 07/06/2021 Posterior C1, LEFT C2 RHIZOTOMY, EXPLORATION OF EPIDURAL PHLEGMON PICC INSERTION VASCULAR ACCESS TEAM 07/10/2021 SHOULDER SURGERY right TRACHEOSTOMY 07/30/2021 TRACHEOSTOMY N/A 07/30/2021 TRACHEOTOMY performed by Erica Santiago MD at [facility] OR UPPER GASTROINTESTINAL ENDOSCOPY N/A 07/02/2021 EGD ESOPHAGOGASTRODUODENOSCOPY performed by Hari Wagner MD at [facility] Endoscopy Medications: QUEtiapine 25 mg Oral [...] Friends and Family: Not on file Attends Restoration Services: Not on file Active Member of [...] extension (from neutral), as above. Medical Decision Abvhhu-Seakzntr-Lqtwn: SARS-CoV-2, Rapid COVID-19, Rapid Collected: 07/13/21 0955 Result status: Final Resulting lab: [facility] Reference range: Not Detected Value: DETECTED [...] this assay. Fact sheet for Healthcare Providers: https://www.fda.gov/media/960816/downl oad Fact sheet for Patients: https://www.fda.gov/media/902008/downl oad Methodology: Isothermal Nucleic Acid Amplification Culture, Respiratory Order: [id number] Status: Final result Visible to patient: No (not released) Next appt: Today at 02:30 PM in Radiology (STV MRI RM 1 (1.5T)) Specimen Information: Sputum Aspirated 0 Result Notes Component 07/24/21 9930 Specimen Description .ASPIRATED SPUTUM Direct Exam < 10 EPITHELIAL CELLS/LPF Direct Exam >25 NEUTROPHILS/LPF Direct Exam MANY GRAM NEGATIVE RODS Abnormal Culture KLEBSIELLA AEROGENES HEAVY GROWTH Abnormal Culture NO NORMAL ROB Resulting Agency [facility] Susceptibility Klebsiella aerogenes (1) Antibiotic [...] Patient's name: Meg Georges Patient's account/billing number: [id number] Patient's Date of : 1965 Age: 56 [...] patient was sent to the ED in [facility] from outpatient infusion center where she had [...] Date 08/09/21 0000 - 08/09/21 2359 Shift [id number] 9055-3385 4583-5763 24 Hour Total INTAKE I.V.(mL/kg) 191(3.2) 191(3.2) [...] Results Component Value Date PHART 7.406 07/06/2021 AKC4YTT 34.8 07/06/2021 PO2ART 279.0 07/06/2021 [id number] 21.4 07/06/2021 B0YTQYEH 99.4 07/06/2021 FIO2 30.0 08/05/2021 Lactic Acid: [...] No results for input(s): LABIRON, TIBC, FERRITIN, [id number], FOLATE, OCCULTBLD in the last 72 hours. [...] MD Department of Internal Medicine/ Critical care [facility]) 08/09/2021, 8:12 AM Attending Physician Statement I [...] this chart was generated using voice recognition [employer] dictation software. Although every effort was made to ensure the accuracy of this automated milk drier, some errors in milk drier may have occurred. Physical Therapy Facility/Department: [facility] CAR 3 Physical Therapy Initial Assessment [...] patient was sent to the ED in [facility] from outpatient infusion center where she had [...] Commands: Impaired Other (Comment): intermittant, appeared to machine installer R hand to commands, appeared to try [...] Stair CMS G-Code Modifier : CM (08/08/21 160) Goals Short Term Goals Time Frame for [...] were not included. [facility] -Progress Note Today's Date and Time: 08/08/2021, [...] of C2 fx noted Infection Control Recommendations Korbel Precautions Isolate for Covid until 07-23-21 Antimicrobial [...] through 08-20-21. Patient was transferred back to [facility] on 07-14-21 because of a positive [...] EXPLORATION OF EPIDURAL PHLEGMON performed by Alisia Cevallos DO at [facility] OR CHOLECYSTECTOMY EYE SURGERY [address] shunt for open angle glaucoma. MRI compatible- device is all silicone LAMINECTOMY 07/06/2021 Posterior C1, LEFT C2 RHIZOTOMY, EXPLORATION OF EPIDURAL PHLEGMON PICC INSERTION VASCULAR ACCESS TEAM 07/10/2021 SHOULDER SURGERY right TRACHEOSTOMY 07/30/2021 TRACHEOSTOMY N/A 07/30/2021 TRACHEOTOMY performed by Erica Santiago MD at [facility] OR UPPER GASTROINTESTINAL ENDOSCOPY N/A 07/02/2021 EGD ESOPHAGOGASTRODUODENOSCOPY performed by Hari Wagner MD at [facility] Endoscopy Medications: QUEtiapine 50 mg Oral [...] Friends and Family: Not on file Attends Restoration Services: Not on file Active Member of [...] extension (from neutral), as above. Medical Decision Iafyuk-Ndivbvcu-Kzaui: SARS-CoV-2, Rapid COVID-19, Rapid Collected: 07/13/21 3252 Result status: Final Resulting lab: [facility] Reference range: Not Detected Value: [...] this assay. Fact sheet for Healthcare Providers: https://www.fda.gov/media/754650/downl oad Fact sheet for Patients: https://www.fda.gov/media/151251/downl oad Methodology: Isothermal Nucleic Acid Amplification Culture, Respiratory Order: [id number] Status: Final result Visible to patient: No [...] Abnormal Culture NO NORMAL ROB Resulting Agency [facility] Susceptibility Klebsiella aerogenes (1) Antibiotic Interpretation Microscan [...] patient. Please call with questions. Jany Francis, STUDENT DEVELOPMENT SPECIALIST - ELECTRIC TRACK SWITCH MAINTAINER ATTESTATION: I have discussed the case, including pertinent history and exam findings with the STUDENT DEVELOPMENT SPECIALIST. I have evaluated the History, physical findings and pictures of the patient and the coffey elements of the encounter have been performed by me. I have reviewed the laboratory data, other diagnostic studies and discussed them with the STUDENT DEVELOPMENT SPECIALIST. I have updated the medical record where necessary. I agree with the assessment, plan and orders as documented by the STUDENT DEVELOPMENT SPECIALIST. Seth Stokes MD. Critical Care Team - Daily Progress Note Date and time: 08/08/2021 7:18 AM Patient's name: Meg Georges Patient's account/billing number: [id number] Patient's Date of : 1965 Age: 56 [...] patient was sent to the ED in [facility] from outpatient infusion center where she had [...] Date 08/08/21 0000 - 08/08/21 2359 Shift [id number] 7220-1036 6604-7227 24 Hour Total INTAKE I.V.(mL/kg) 196.4(3.3) 196.4(3.3) [...] Humidification Source: HME Cuff Pressure (cm H2O): (associate broker) Skin Barrier Applied: (Mepilex placed after trach change) Lab Results Component Value Date PHART 7.406 07/06/2021 [id number] 34.8 07/06/2021 PO2ART 279.0 07/06/2021 NNR2BDB 21.4 07/06/2021 I1MLTEFG 99.4 07/06/2021 FIO2 30.0 08/05/2021 Lactic Acid: [...] No results for input(s): LABIRON, TIBC, FERRITIN, [id number], FOLATE, OCCULTBLD in the last 72 hours. [...] oxygen sats >92% On ventilator- PRVC 30%, 15//5 Continue to CPAP trial; patient having difficulty [...] MD Department of Internal Medicine/ Critical care [facility]) 08/08/2021, 7:18 AM Attending Physician Statement I [...] this chart was generated using voice recognition [employer] dictation software. Although every effort was made to ensure the accuracy of this automated milk drier, some errors in milk drier may have occurred. Neurosurgery attending Supervised passive [...] for C1/2 fusion tentatively on 08/22 Beatriz Cevallos DO Neurosurgeon 08/07/21 1729 Patient Transport Time [...] Anthropometric Measures: Height: 5' 5 (165.1 cm) [place] Body Weight (IBW): 125 lbs (57 kg) [...] Encephalitis Encephalopathy CIDP (chronic inflammatory demyelinating polyneuropathy) ([facility]) Sepsis ([facility]) Bacteremia Hypothyroidism Hypokalemia Type 2 diabetes mellitus with diabetic polyneuropathy ([facility]) Primary hypertension Upper GI bleed Non-intractable vomiting Unintentional weight loss Metabolic encephalopathy MSSA (methicillin susceptible Staphylococcus aureus) septicemia ([facility]) CRP elevated Bandemia Allergy to multiple antibiotics Pyogenic inflammation of bone (HCC) Acute intractable headache Septic arthritis of cervical spine ([facility]) 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 [...] know that I will be rounding at [facility] all week. Goals/Plan of care Education/support to [...] to call us as needed. Update given. Handbag Stitcher Leeann FENTONN, RN, ONN-CG [place] Office: [phone] [place] Office: [phone] [facility] Office: [phone] For Symptom Management Clinic scheduling please call [phone] Images from the original note were not included. [facility] -Progress Note Today's Date and Time: 08/07/2021, [...] prior to surgical intervention. Infection Control Recommendations Korbel Precautions Isolate for Covid until 07-23-21 Antimicrobial [...] through 08-20-21. Patient was transferred back to [facility] on 07-14-21 because of a positive [...] EXPLORATION OF EPIDURAL PHLEGMON performed by Alisia Cevallos DO at [facility] OR CHOLECYSTECTOMY EYE SURGERY [address] shunt for open angle glaucoma. MRI compatible- device is all silicone LAMINECTOMY 07/06/2021 Posterior C1, LEFT C2 RHIZOTOMY, EXPLORATION OF EPIDURAL PHLEGMON PICC INSERTION VASCULAR ACCESS TEAM 07/10/2021 SHOULDER SURGERY right TRACHEOSTOMY 07/30/2021 TRACHEOSTOMY N/A 07/30/2021 TRACHEOTOMY performed by Erica Santiago MD at [facility] OR UPPER GASTROINTESTINAL ENDOSCOPY N/A 07/02/2021 EGD ESOPHAGOGASTRODUODENOSCOPY performed by Hari Wagner MD at [facility] Endoscopy Medications: QUEtiapine 25 mg Oral [...] Friends and Family: Not on file Attends Restoration Services: Not on file Active Member of [...] Decision Making-Imaging: No new imaging Medical Decision Tdymsj-Gbwyrwfs-Czsax: SARS-CoV-2, Rapid COVID-19, Rapid Collected: 07/13/21 8190 Result status: Final [facility] Reference range: Not Detected Value: [...] this assay. Fact sheet for Healthcare Providers: https://www.fda.gov/media/425545/downl oad Fact sheet for Patients: https://www.fda.gov/media/685146/downl oad Methodology: Isothermal Nucleic Acid Amplification Culture, Respiratory Order: [id number] Status: Final result Visible to patient: No (not released) Next appt: Today at 02:30 PM in Radiology (STV MRI RM 1 (1.5T)) Specimen Information: Sputum Aspirated 0 Result Notes Component 07/24/21 1197 Specimen Description .ASPIRATED SPUTUM Direct Exam < 10 EPITHELIAL CELLS/LPF Direct Exam >25 NEUTROPHILS/LPF Direct Exam MANY GRAM NEGATIVE RODS Abnormal Culture KLEBSIELLA AEROGENES HEAVY GROWTH Abnormal Culture NO NORMAL ROB Resulting Agency [facility] Susceptibility Klebsiella aerogenes (1) Antibiotic [...] Patient's name: Meg Georges Patient's account/billing number: [id number] Patient's Date of : 1965 Age: 56 [...] patient was sent to the ED in [facility] from outpatient infusion center where she had [...] Date 08/07/21 0000 - 08/07/21 2359 Shift [id number] 6694-0232 6660-4070 24 Hour Total INTAKE I.V.(mL/kg) 382.5(6.4) 382.5(6.4) [...] Oral Q6H carvedilol 25 mg Oral BID latanoprost 1 drop Both Eyes Nightly [Held [...] Humidification Source: HME Cuff Pressure (cm H2O): (associate broker) Skin Barrier Applied: (Mepilex placed after trach change) Lab Results Component Value Date PHART 7.406 07/06/2021 [id number] 34.8 07/06/2021 PO2ART 279.0 07/06/2021 [id number] 21.4 07/06/2021 [id number] 99.4 07/06/2021 FIO2 30.0 08/05/2021 Lactic Acid: Lab Results Component Value Date LACTA 1.0 07/13/2021 LACTA 1.6 06/28/2021 DATA: Complete Blood Count: Recent Labs 08/05/218 08/06/21 034 WBC 9.5 12.3* HGB 7.7* 8.6* MCV 98.0 97.4 PLT 458* 565* RBC 2.47* 2.70* HCT 24.2* 26.3* MCH 31.2 31.9 MCHC 31.8 32.7 RDW 18.3* 18.0* MPV 8.6 8.4 PT/INR: Lab Results Component Value Date PROTIME 13.1 07/25/2021 INR 1.2 07/25/2021 PTT: Lab Results Component Value Date APTT 23.9 06/28/2021 Basal Metabolic Profile: Recent Labs 08/05/2143708/06/21343 NA 143 143 K 3.5* 3.6* BUN 14 11 CREATININE 0.53 0.55 CL 109* 109* CO2 23 23 Magnesium: Lab Results Component Value Date MG 1.8 08/05/2021 MG 1.9 08/04/2021 MG 1.7 08/02/2021 Phosphorus: Lab Results Component Value Date PHOS 1.9 07/17/2021 S. Calcium: Recent Labs 08/06/21343 CALCIUM 8.5* S. Ionized Calcium:No results for [...] No results for input(s): LABIRON, TIBC, FERRITIN, TJRYPTRO87, FOLATE, OCCULTBLD in the last 72 hours. [...] MD Department of Internal Medicine/ Critical care [facility]) 08/07/2021, 7:58 AM Attending Physician Statement I [...] this chart was generated using voice recognition [employer] dictation software. Although every effort was made to ensure the accuracy of this automated milk drier, some errors in milk drier may have occurred. Neurosurgery NATE/Resident Daily Progress [...] stabilization, timing to be determined by Dr Cevallos - XR cervical flexion/extension and open mouth odontoid views for surgical planning when able - f/u GI clearance for PEG placement-will need to manipulate neck for placement Please contact neurosurgery with any changes in patients neurologic status. Kam Loera, BRIDGER 08/06/21 4:50 PM Associated attestation - Alisia Cevallos DO - 08/07/2021 7:23 PM EDT Neurosurgery [...] for C1/2 fusion tentatively on 08/22 Beatriz Cevallos DO Neurosurgeon [facility] reconsult Meg Georges is a 56 [...] No results for input(s): LABIRON, TIBC, FERRITIN, VRCRUMBK11, FOLATE, OCCULTBLD in the last 72 hours. [...] or concerns. Valery Quinteros PGY-1 Internal Medicine [place], [place] 3:59 PM 08/06/2021 Associated attestation - [...] modifications. Leigh Mcintosh MD Gastroenterology [facility], [place], [place] Images from the original note were not included. [facility] -Progress Note Today's Date and Time: 08/06/2021, [...] prior to surgical intervention. Infection Control Recommendations [place] Precautions Isolate for Covid until 07-23-21 Antimicrobial [...] through 08-20-21. Patient was transferred back to [facility] on 07-14-21 because of a positive [...] EXPLORATION OF EPIDURAL PHLEGMON performed by Alisia Cevallos DO at [facility] OR CHOLECYSTECTOMY EYE SURGERY [address] shunt for open angle glaucoma. MRI compatible- device is all silicone LAMINECTOMY 07/06/2021 Posterior C1, LEFT C2 RHIZOTOMY, EXPLORATION OF EPIDURAL PHLEGMON PICC INSERTION VASCULAR ACCESS TEAM 07/10/2021 SHOULDER SURGERY right TRACHEOSTOMY 07/30/2021 TRACHEOSTOMY N/A 07/30/2021 TRACHEOTOMY performed by Erica Santiago MD at [facility] OR UPPER GASTROINTESTINAL ENDOSCOPY N/A 07/02/2021 EGD ESOPHAGOGASTRODUODENOSCOPY performed by Hari Wagner MD at [facility] Endoscopy Medications: insulin glargine 15 Units [...] Friends and Family: Not on file Attends Restoration Services: Not on file Active Member of [...] Decision Making-Imaging: No new imaging Medical Decision Miqoxn-Xpnhequm-Dmhdl: SARS-CoV-2, Rapid COVID-19, Rapid Collected: 07/13/21 0109 Result status: Final Resulting lab: [facility] Reference range: Not Detected Value: [...] this assay. Fact sheet for Healthcare Providers: https://www.fda.gov/media/528341/downl oad Fact sheet for Patients: https://www.fda.gov/media/441612/downl oad Methodology: Isothermal Nucleic Acid Amplification Culture, Respiratory Order: [id number] Status: Final result Visible to patient: No (not released) Next appt: Today at 02:30 PM in Radiology (STV MRI RM 1 (1.5T)) Specimen Information: Sputum Aspirated 0 Result Notes Component 07/24/21 7927 Specimen Description .ASPIRATED SPUTUM Direct Exam < 10 EPITHELIAL CELLS/LPF Direct Exam >25 NEUTROPHILS/LPF Direct Exam MANY GRAM NEGATIVE RODS Abnormal Culture KLEBSIELLA AEROGENES HEAVY GROWTH Abnormal Culture NO NORMAL ROB Resulting Agency [facility] Susceptibility Klebsiella aerogenes (1) Antibiotic Interpretation Microscan [...] patient. Please call with questions. Jany Francis, REBEKA - ELECTRIC TRACK SWITCH MAINTAINER ATTESTATION: I have discussed the case, including pertinent history and exam findings with the STUDENT DEVELOPMENT SPECIALIST. I have evaluated the History, physical findings and pictures of the patient and the coffey elements of the encounter have been performed by me. I have reviewed the laboratory data, other diagnostic studies and discussed them with the STUDENT DEVELOPMENT SPECIALIST. I have updated the medical record where necessary. I agree with the assessment, plan and orders as documented by the STUDENT DEVELOPMENT SPECIALIST. Seth Stokes MD. Critical Care Team - Daily Progress Note Date and time: 08/06/2021 7:27 AM Patient's name: Meg Georges Patient's account/billing number: [id number] Patient's Date of : 1965 Age: 56 [...] patient was sent to the ED in [facility] from outpatient infusion center where she had [...] Date 08/06/21 0000 - 08/06/21 2359 Shift 5954-1200 0661-4377 8979-1584 24 Hour Total INTAKE I.V.(mL/kg) 244.5(4) 244.5(4) [...] Results Component Value Date PHART 7.406 07/06/2021 [id number] 34.8 07/06/2021 PO2ART 279.0 07/06/2021 TFQ9JFZ 21.4 07/06/2021 F6GGVIFQ 99.4 07/06/2021 FIO2 30.0 08/05/2021 Lactic Acid: Lab Results Component Value Date LACTA 1.0 07/13/2021 LACTA 1.6 06/28/2021 DATA: Complete Blood Count: Recent Labs 08/04/21 0440 08/05/21 0438 08/06/21 034 WBC 10.5 9.5 12.3* HGB 8.0* [...] 23.9 06/28/2021 Basal Metabolic Profile: Recent Labs 08/04/2143908/05/2143708/06/21 034 NA 141 143 143 K 3.5* 3.5* [...] No results for input(s): LABIRON, TIBC, FERRITIN, FLJIMYAT37, FOLATE, OCCULTBLD in the last 72 hours. [...] MD Department of Internal Medicine/ Critical care [facility]) 08/06/2021, 7:27 AM Attending Physician Statement I [...] this chart was generated using voice recognition [employer] dictation software. Although every effort was made to ensure the accuracy of this automated milk drier, some errors in milk drier may have occurred. Images from the original note were not included. Critical Care Team - Daily Progress Note Date and time: 08/05/2021 1:52 PM Patient's name: Meg Georges Patient's account/billing number: [id number] Patient's Date of : 1965 Age: 56 [...] degree Ulcer prophylaxis: [] PPI Agent, [x] [id number], [] Sucralfate, [] Other: Glycemic control: Controlled [...] patient was sent to the ED in [facility] from outpatient infusion center where she had [...] per 24 hour Intake 1376.11 ml Output 2004 ml Net -628.89 ml Date 08/05/21 0000 - 08/05/21 2359 Shift 6485-6983 1851-8152 4451-3796 24 Hour Total INTAKE I.V.(mL/kg) 223.2(3.5) 86.6(1.4) [...] Results Component Value Date PHART 7.406 07/06/2021 FRZ8OHH 34.8 07/06/2021 PO2ART 279.0 07/06/2021 ZUU1ICI 21.4 07/06/2021 [id number] 99.4 07/06/2021 FIO2 30.0 08/05/2021 Lactic Acid: [...] No results for input(s): LABIRON, TIBC, FERRITIN, OAMRPVRP77, FOLATE, OCCULTBLD in the last 72 hours. [...] MD Department of Internal Medicine/ Critical care [facility]) 08/05/2021, 1:52 PM Associated attestation - Aniket Padron MD - 08/05/2021 4:24 PM EDT Attending Physician Statement I have discussed the case of Meg Georges, including pertinent history and exam findings with the resident/fellow/medical student/MANAGER INSIDE/PA. I have seen and examined the patient and the coffey elements of the encounter have been performed by me. I agree with the assessment, plan and orders as documented by the resident/fellow/medical student/MANAGER INSIDE/PA With changes made to the note as [...] were not included. [facility] -Progress Note Today's Date and Time: 08/05/2021, [...] placed 07/30/21 per ENT Infection Control Recommendations [place] Precautions Isolate for Covid until 07-23-21 Antimicrobial [...] through 08-20-21. Patient was transferred back to [facility] on 07-14-21 because of a positive [...] EXPLORATION OF EPIDURAL PHLEGMON performed by Alisia Cevallos DO at [facility] OR CHOLECYSTECTOMY EYE SURGERY [address] shunt for open angle glaucoma. MRI compatible- device is all silicone LAMINECTOMY 07/06/2021 Posterior C1, LEFT C2 RHIZOTOMY, EXPLORATION OF EPIDURAL PHLEGMON PICC INSERTION VASCULAR ACCESS TEAM 07/10/2021 SHOULDER SURGERY right TRACHEOSTOMY 07/30/2021 TRACHEOSTOMY N/A 07/30/2021 TRACHEOTOMY performed by Erica Santiago MD at [facility] OR UPPER GASTROINTESTINAL ENDOSCOPY N/A 07/02/2021 EGD ESOPHAGOGASTRODUODENOSCOPY performed by Hari Wagner MD at [facility] Endoscopy Medications: insulin glargine 20 Units [...] Friends and Family: Not on file Attends Restoration Services: Not on file Active Member of [...] following labs: CBC with Differential: Recent Labs 08/04/210 08/05/21 043 WBC 10.5 9.5 HGB 8.0* 7.7* HCT [...] Decision Making-Imaging: No new imaging Medical Decision Dzmihm-Kbpcdweb-Lfyuh: SARS-CoV-2, Rapid COVID-19, Rapid Collected: 07/13/21 2516 Result status: Final [facility]ing [facility] Reference range: Not Detected Value: [...] this assay. Fact sheet for Healthcare Providers: https://www.fda.gov/media/970902/downl oad Fact sheet for Patients: https://www.fda.gov/media/934342/downl oad Methodology: Isothermal Nucleic Acid Amplification Culture, Respiratory Order: [id number] Status: Final result Visible to patient: No (not released) Next appt: Today at 02:30 PM in Radiology (STV MRI RM 1 (1.5T)) Specimen Information: Sputum Aspirated 0 Result Notes Component 07/24/21 7226 Specimen Description .ASPIRATED SPUTUM Direct Exam < 10 EPITHELIAL CELLS/LPF Direct Exam >25 NEUTROPHILS/LPF Direct Exam MANY GRAM NEGATIVE RODS Abnormal Culture KLEBSIELLA AEROGENES HEAVY GROWTH Abnormal Culture NO NORMAL ROB Resulting Agency [facility] Susceptibility Klebsiella aerogenes (1) Antibiotic [...] were not included. [facility] -Progress Note Today's Date and Time: 08/04/2021, [...] placed 07/30/21 per ENT Infection Control Recommendations [place] Precautions Isolate for Covid until 07-23-21 Antimicrobial [...] through 08-20-21. Patient was transferred back to [facility] on 07-14-21 because of a positive [...] EXPLORATION OF EPIDURAL PHLEGMON performed by Alisia Cevallos DO at [facility] OR CHOLECYSTECTOMY EYE SURGERY [address] shunt for open angle glaucoma. MRI compatible- device is all silicone LAMINECTOMY 07/06/2021 Posterior C1, LEFT C2 RHIZOTOMY, EXPLORATION OF EPIDURAL PHLEGMON PICC INSERTION VASCULAR ACCESS TEAM 07/10/2021 SHOULDER SURGERY right TRACHEOSTOMY 07/30/2021 TRACHEOSTOMY N/A 07/30/2021 TRACHEOTOMY performed by Erica Santiago MD at [facility] OR UPPER GASTROINTESTINAL ENDOSCOPY N/A 07/02/2021 EGD ESOPHAGOGASTRODUODENOSCOPY performed by Hari Wagner MD at [facility] Endoscopy Medications: insulin glargine 20 Units [...] Friends and Family: Not on file Attends Restoration Services: Not on file Active Member of [...] Decision Making-Imaging: No new imaging Medical Decision Bamaob-Plrqasfl-Jgkaf: SARS-CoV-2, Rapid COVID-19, Rapid Collected: 07/13/21 3625 Result status: Final Resulting lab: [facility] Reference range: Not Detected Value: [...] this assay. Fact sheet for Healthcare Providers: https://www.fda.gov/media/020520/downl oad Fact sheet for Patients: https://www.fda.gov/media/907920/downl oad Methodology: Isothermal Nucleic Acid Amplification Culture, Respiratory Order: [id number] Status: Final result Visible to patient: No [...] Abnormal Culture NO NORMAL ROB Resulting Agency [facility] Susceptibility Klebsiella aerogenes (1) Antibiotic Interpretation Microscan [...] Final piperacillin-tazobactam Sensitive 16 BACTERIAL SUSCEPTIBILITY PANEL BECYK Final Thank you for allowing us to [...] EXPLORATION OF EPIDURAL PHLEGMON performed by Alisia Cevallos DO at [facility] OR CHOLECYSTECTOMY EYE SURGERY [address] shunt for open angle glaucoma. MRI compatible- device is all silicone LAMINECTOMY 07/06/2021 Posterior C1, LEFT C2 RHIZOTOMY, EXPLORATION OF EPIDURAL PHLEGMON PICC INSERTION VASCULAR ACCESS TEAM 07/10/2021 SHOULDER SURGERY right TRACHEOSTOMY 07/30/2021 TRACHEOSTOMY N/A 07/30/2021 TRACHEOTOMY performed by Erica Santiago MD at [facility] OR UPPER GASTROINTESTINAL ENDOSCOPY N/A 07/02/2021 EGD ESOPHAGOGASTRODUODENOSCOPY performed by Hari Wagner MD at [facility] Endoscopy FAMILY HISTORY Family History Problem [...] in the care of Ms. Georges . [facility] Palliative Care Number [phone] [facility] Number [phone] [facility] Palliative Care Number [phone] Please call with any palliative questions or [...] mg 20 mg Per NG tube BID Skylar Coyle MD 20 mg at 08/03/212004 valproic [...] 10 mg 10 mg Rectal Daily PRN Skylar Coyle MD 0.9 % sodium chloride infusion IntraVENous Continuous Skylar Coyle MD 10 mL/hr at 08/04/21 0643 Rate Verify at 08/04/21 0643 0.9 % sodium chloride infusion IntraVENous PRN Skylar Coyle MD LORazepam (ATIVAN) injection 2 mg 2 mg IntraVENous Q4H PRN Skylar Coyle MD 2 mg at 08/04/21 0431 carvedilol (COREG) tablet 25 mg 25 mg Oral BID WC Skylar Coyle MD 25 mg at 08/03/21 1700 potassium chloride (KLOR-CON M) extended release tablet 40 mEq 40 mEq Oral PRN Skylar Coyle MD Or potassium bicarb-citric acid (EFFER-K) effervescent tablet 40 mEq 40 mEq Oral PRN Skylar Coyle MD 40 mEq at 08/04/21 0625 Or potassium chloride 10 mEq/100 mL IVPB (Peripheral Line) 10 mEq IntraVENous PRN Skylar Coyle MD fentaNYL (SUBLIMAZE) injection 25 mcg 25 mcg IntraVENous Q1H PRN Skylar Coyle MD 25 mcg at 08/04/21 0625 latanoprost (XALATAN) 0.005 % ophthalmic solution 1 drop 1 drop Both Eyes Nightly Skylar Coyle MD 1 drop at 08/03/212104 [Held by provider] lactobacillus (CULTURELLE) capsule 1 capsule 1 capsule Oral Daily with breakfast Chris Lassiter MD 1 capsule at 07/24/21 09 [Held by provider] gabapentin (NEURONTIN) capsule 200 mg 200 mg Oral TID Chris Lassiter MD 200 mg at 07/24/21 09 nafcillin 2,000 mg in dextrose 5 % 100 mL IVPB (mini-bag) 2,000 mg IntraVENous Q6H Skylar Coyle MD Stopped at 08/04/21 0559 [Held by provider] aspirin tablet 325 mg 325 mg Oral Daily Tami Vega MD 325 mg at 07/24/21 0906 [Held by provider] calcium carbonate-vitamin D3 (CALTRATE) 600-400 MG-UNIT per tab 2 tablet 2 tablet Oral Daily Becki Chang MD 2 tablet at 07/23/21 1209 sodium chloride flush 0.9 % injection 5-40 mL 5-40 mL IntraVENous PRN Skylar Coyle MD 10 mL at 08/03/212005 ondansetron (ZOFRAN-ODT) disintegrating tablet 4 mg 4 mg Oral Q8H PRN Skylar Coyle MD 4 mg at 07/14/21 1834 Or ondansetron (ZOFRAN) injection 4 mg 4 mg IntraVENous Q6H PRN Skylar Coyle MD 4 mg at 07/18/21 0415 acetaminophen (TYLENOL) tablet 650 mg 650 mg Oral Q6H PRN Skylar Coyle MD Or acetaminophen (TYLENOL) suppository 650 mg 650 mg Rectal Q6H PRN Skylar Coyle MD dextromethorphan-guaiFENesin (ROBITUSSIN-DM) 10-100 MG/5ML liquid 5 mL 5 mL Oral Q4H PRN Skylar Coyle MD 5 mL at 07/14/21 1828 dextrose bolus 10% 125 mL 125 mL IntraVENous PRN Skylar Coyle MD Or dextrose bolus 10% 250 mL 250 mL IntraVENous PRN Skylar Coyle MD glucagon (rDNA) injection 1 mg 1 mg IntraMUSCular PRN Skylar Coyle MD dextrose 5 % solution 100 mL/hr IntraVENous PRN Sklyar Cyole MD magnesium sulfate 1000 mg in dextrose 5% 100 mL IVPB 1,000 mg IntraVENous PRN Skylar Coyle MD Stopped at 07/15/21 0445 [Held by provider] levothyroxine (SYNTHROID) tablet 100 mcg 100 mcg Oral Daily Clark Iglesias MD 100 mcg at 07/24/21 09 enoxaparin (LOVENOX) injection 40 mg 40 mg [...] follow up with adult ENT provider in [facility]. Follow-up: Your follow up appointment can be [...] and Dr. Angel Krueger [address] [facility] [address] OPTION 2: [facility] [address] [place] [address] Appointment scheduling: ISRRAEL MCGRATH MD Pediatric Otolaryngology-Head and Neck Surgery [facility] Otol[facility]ology group Office ph# [phone] Also available in The 5th Quarterve Pt trach changed without incident, #7.0 XLT, per Dr. Mcgrath. Trach site red, Mepilex to be placed. Pt tolerated well. Images from the original note were not included. Critical Care Team - Daily Progress Note Date and time: 08/04/2021 8:43 AM Patient's name: Meg Georges Patient's account/billing number: [id number] Patient's Date of : 1965 Age: 56 y.o. Date of Admission: 07/14/2021 4:12 PM Length of stay during current admission: 21 Primary Care Physician: Neri P House, Sr, DO ICU Attending Physician: Dr. Willoughby [...] no Ulcer prophylaxis: [x] PPI Agent, [] W0Paadd, [] Sucralfate, [] Other: Glycemic control: controlled; [...] patient was sent to the ED in [facility] from outpatient infusion center where she had [...] AT LOWER LIP: [facility] SEDATION: Precedex gtt [] Propofol gtt [] [...] Date 08/04/21 0000 - 08/04/21 2359 Shift 2098-0117 0325-1595 5435-3615 24 Hour Total INTAKE I.V.(mL/kg) 376.1(6) 376.1(6) [...] SubCUTAneous Daily Continuous Infusions: dexmedetomidine 0.8 mcg/kg/hr (08/04/2143) sodium chloride 10 mL/hr at 08/04/21642 sodium chloride dextrose PRN Meds: magnesium hydroxide, [...] CO2: 37 (%) Position: Semi-Simon's Humidification Source: [facility] Lab Results Component Value Date PHART 7.406 07/06/2021 [id number] 34.8 07/06/2021 PO2ART 279.0 07/06/2021 [id number] 21.4 07/06/2021 G3WISVBS 99.4 07/06/2021 FIO2 30.0 08/03/2021 Lactic Acid: Lab Results Component Value Date LACTA 1.0 07/13/2021 LACTA 1.6 06/28/2021 DATA: Complete Blood Count: Recent Labs 08/02/21 0454 08/03/21 0446 08/04/21 044 WBC 12.3* 11.9* 10.5 HGB 8.0* 8.3* [...] No results for input(s): LABIRON, TIBC, FERRITIN, BEWEDHJZ24, FOLATE, OCCULTBLD in the last 72 hours. [...] MD Department of Internal Medicine/ Critical care [facility]) 08/04/2021, 8:43 AM Associated attestation - Aniket Padron MD - 08/04/2021 1:39 PM EDT Attending Physician Statement I have discussed the case of Meg Georges, including pertinent history and exam findings with the resident/fellow/medical student/MANAGER INSIDE/PA. I have seen and examined the patient and the coffey elements of the encounter have been performed by me. I agree with the assessment, plan and orders as documented by the resident/fellow/medical student/MANAGER INSIDE/PA With changes made to the note as [...] Status: At risk for malnutrition (Comment) (07/30/21 3380) Context: Acute Illness Findings of the 6 clinical characteristics of malnutrition: Energy Intake: No significant decrease in energy intake (with use of TF) Weight Loss: No significant weight loss Body Fat Loss: No significant body fat loss Muscle Mass Loss: Unable to assess Fluid Accumulation: Mild Extremities,Generalized Vmware Consultant Strength: Not Performed Nutrition Assessment: Remains intubated [...] 50 mL/hr Additives/Modulars: None Water Flushes: per MD Current TF & Flush Orders Provides: Peptide Based Formula goal 45 mL/hr = 1296 kcal, 81 g PRO Goal TF & Flush Orders Provides: Peptide Based Formula goal 50 mL/hr = 1440 kcal, 90 g PRO Anthropometric Measures: Height: 5' 5 (165.1 cm) [place] Body Weight (IBW): 125 lbs (57 kg) Admission Body Weight: 133 lb 13.1 oz (60.7 kg) Current Body Weight: 137 lb 9.2 oz (62.4 kg) (08/03, bedscale), 110.1 % IBW. Weight Source: Bed Scale [...] determine Ashwini Felix MS, RD, LD Contact: [id number] Otolaryngology staff note POD 4 s/p tracheostomy placement Patient was seen and examined this morning On vent, sedated, though weaning 7.0 Shiley XLT cuffed, in good position. Some dried blood around trach but there is no peristomal wound breakdown c-collar still in place Plan for trach change on POD 5 (Friday08/04/21) Sonya Barber APRN - [place] Pediatric Otolaryngology-Head and Neck Surgery [facility] Otolaryngology group Office ph# [phone] Also available in Savision Images from the original note were not included. [facility] -Progress Note Today's Date and Time: 08/03/2021, [...] placed 07/30/21 per ENT Infection Control Recommendations Korbel Precautions Isolate for Covid until 07-23-21 Antimicrobial [...] through 08-20-21. Patient was transferred back to [facility] on 07-14-21 because of a positive [...] EXPLORATION OF EPIDURAL PHLEGMON performed by Alisia Cevallos DO at [facility] OR CHOLECYSTECTOMY EYE SURGERY [address] shunt for open angle glaucoma. MRI compatible- device is all silicone LAMINECTOMY 07/06/2021 Posterior C1, LEFT C2 RHIZOTOMY, EXPLORATION OF EPIDURAL PHLEGMON PICC INSERTION VASCULAR ACCESS TEAM 07/10/2021 SHOULDER SURGERY right TRACHEOSTOMY 07/30/2021 TRACHEOSTOMY N/A 07/30/2021 TRACHEOTOMY performed by Erica Santiago MD at [facility] OR UPPER GASTROINTESTINAL ENDOSCOPY N/A 07/02/2021 EGD ESOPHAGOGASTRODUODENOSCOPY performed by Hari Wagner MD at [facility] Endoscopy Medications: insulin lispro 0-18 Units [...] Friends and Family: Not on file Attends Restoration Services: Not on file Active Member of [...] 8 8 BMP: Recent Labs 08/01/21 0452 08/01/212 08/02/2145308/03/216 NA 138 < > 137 139 K [...] are unchanged. Suggest ultrasound correlation. Medical Decision Hzhogu-Zedcpboq-Rduzt: SARS-CoV-2, Rapid COVID-19, Rapid Collected: 07/13/21 3499 Result status: Final Resulting lab: [facility] Reference range: Not Detected Value: [...] this assay. Fact sheet for Healthcare Providers: https://www.fda.gov/media/455599/downl oad Fact sheet for Patients: https://www.fda.gov/media/309833/downl oad Methodology: Isothermal Nucleic Acid Amplification Culture, Respiratory Order: [id number] Status: Final result Visible to patient: No [...] Abnormal Culture NO NORMAL ROB Resulting Agency [facility] [place] Susceptibility Klebsiella aerogenes (1) Antibiotic [...] data were reviewed Discussed with nursing Staff, estate planner Infection Control and Prevention measures reviewed All prior entries were reviewed Administer medications as ordered Prognosis: Very Guarded Discharge planning reviewed Follow up as outpatient. Thank you for allowing us to participate in the care of this patient. Please call with questions. Jany Francis, STUDENT DEVELOPMENT SPECIALIST - ELECTRIC TRACK SWITCH MAINTAINER ATTESTATION: I have discussed the case, including pertinent history and exam findings with the STUDENT DEVELOPMENT SPECIALIST. I have evaluated the History, physical findings and pictures of the patient and the coffey elements of the encounter have been performed by me. I have reviewed the laboratory data, other diagnostic studies and discussed them with the STUDENT DEVELOPMENT SPECIALIST. I have updated the medical record where necessary. I agree with the assessment, plan and orders as documented by the STUDENT DEVELOPMENT SPECIALIST. Seth Stokes MD. Pager: - Office: Images from the original note were not included. Critical Care Team - Daily Progress Note Date and time: 08/03/2021 7:48 AM Patient's name: Meg Georges Patient's account/billing number: [id number] Patient's Date of : 1965 Age: 56 [...] yes Ulcer prophylaxis: [] PPI Agent, [x] H0Nepbe, [] Sucralfate, [] Other: Glycemic control: high ISS, lantus 16 subq is held Spontaneous breathing trial: trach Bowel regimen/urine output: milk of mag Indwelling catheter/lines: yes De-escalation: yes CURRENT VENTILATION STATUS: [x] Ventilator [] BIPAP [] Nasal Cannula [] Room Air IF INTUBATED, ET TUBE MARKING AT LOWER LIP: [facility] SEDATION: Precedex gtt [] Propofol gtt [] [...] Date 08/03/21 0000 - 08/03/21 2359 Shift [id number] 3572-2910 8051-7637 24 Hour Total INTAKE I.V.(mL/kg) 93.8(1.5) 93.8(1.5) [...] CO2: 30 (%) Position: Semi-Simon's Humidification Source: [facility] Results Component Value Date PHART 7.406 07/06/2021 [id number] 34.8 07/06/2021 PO2ART 279.0 07/06/2021 VGQ1DZH 21.4 07/06/2021 [id number] 99.4 07/06/2021 FIO2 30.0 08/03/2021 Lactic Acid: Lab Results Component Value Date LACTA 1.0 07/13/2021 LACTA 1.6 06/28/2021 DATA: Complete Blood Count: Recent Labs 08/01/21 0452 08/02/21 0454 08/03/21 0446 WBC 14.0* 12.3* 11.9* HGB 9.1* 8.0* [...] PHOS 1.9 07/17/2021 S. Calcium: Recent Labs 08/03/216 CALCIUM 8.3* S. Ionized Calcium:No results for [...] No results for input(s): LABIRON, TIBC, FERRITIN, PINAGLYO61, FOLATE, OCCULTBLD in the last 72 hours. [...] MD Department of Internal Medicine/ Critical care [facility]) 08/03/2021, 7:48 AM Associated attestation - Aniket Padron MD - 08/03/2021 3:44 PM EDT Attending Physician Statement I have discussed the case of Meg Georges, including pertinent history and exam findings with the resident/fellow/medical student/MANAGER INSIDE/PA. I have seen and examined the patient and the coffey elements of the encounter have been performed by me. I agree with the assessment, plan and orders as documented by the resident/fellow/medical student/MANAGER INSIDE/PA With changes made to the note as [...] cm^3 Wound Healing % 79 Wound Assessment Dusky;[place]/red;Fibrinous Drainage Amount Scant Drainage Description Serosanguinous Odor [...] for trach change on POD 5 (Friday08/04/21) Skylar Coyle MD Pediatric Otolaryngology-Head and Neck Surgery [facility] Otolaryngology group Office ph# [phone] Also available in PerfectServe Images from the original note were not included. [facility] -Progress Note Today's Date and Time: 08/02/2021, [...] placed 07/30/21 per ENT Infection Control Recommendations [place]bel Precautions Isolate for Covid until 07-23-21 Antimicrobial [...] through 08-20-21. Patient was transferred back to [facility] on 07-14-21 because of a positive [...] EXPLORATION OF EPIDURAL PHLEGMON performed by Alisia Cevallos DO at [facility] OR CHOLECYSTECTOMY EYE SURGERY [address] shunt for open angle glaucoma. MRI compatible- device is all silicone LAMINECTOMY 07/06/2021 Posterior C1, LEFT C2 RHIZOTOMY, EXPLORATION OF EPIDURAL PHLEGMON PICC INSERTION VASCULAR ACCESS TEAM 07/10/2021 SHOULDER SURGERY right TRACHEOSTOMY 07/30/2021 TRACHEOSTOMY N/A 07/30/2021 TRACHEOTOMY performed by Erica Santiago MD at [facility] OR UPPER GASTROINTESTINAL ENDOSCOPY N/A 07/02/2021 EGD ESOPHAGOGASTRODUODENOSCOPY performed by Hari Wagner MD at [facility] Endoscopy Medications: insulin lispro 0-18 Units [...] Friends and Family: Not on file Attends Restoration Services: Not on file Active Member of [...] are unchanged. Suggest ultrasound correlation. Medical Decision Ogtnwh-Kfkivuju-Mkhzw: SARS-CoV-2, Rapid COVID-19, Rapid Collected: 07/13/21 9528 Result status: Final [facility] Reference range: Not Detected Value: DETECTED [...] this assay. Fact sheet for Healthcare Providers: https://www.fda.gov/media/267196/downl oad Fact sheet for Patients: https://www.fda.gov/media/415052/downl oad Methodology: Isothermal Nucleic Acid Amplification Culture, Respiratory Order: [id number] Status: Final result Visible to patient: No (not released) Next appt: Today at 02:30 PM in Radiology (STV MRI RM 1 (1.5T)) Specimen Information: Sputum Aspirated 0 Result Notes Component 07/24/21 3325 Specimen Description .ASPIRATED SPUTUM Direct Exam < 10 EPITHELIAL CELLS/LPF Direct Exam >25 NEUTROPHILS/LPF Direct Exam MANY GRAM NEGATIVE RODS Abnormal Culture KLEBSIELLA AEROGENES HEAVY GROWTH Abnormal Culture NO NORMAL ROB Resulting Agency [facility] [place] Susceptibility Klebsiella aerogenes (1) Antibiotic [...] data were reviewed Discussed with nursing Staff, estate planner Infection Control and Prevention measures reviewed All prior entries were reviewed Administer medications as ordered Prognosis: Very Guarded Discharge planning reviewed Follow up as outpatient. Thank you for allowing us to participate in the care of this patient. Please call with questions. Jany Francis, STUDENT DEVELOPMENT SPECIALIST - ELECTRIC TRACK SWITCH MAINTAINER ATTESTATION: I have discussed the case, including pertinent history and exam findings with the STUDENT DEVELOPMENT SPECIALIST. I have evaluated the History, physical findings and pictures of the patient and the coffey elements of the encounter have been performed by me. I have reviewed the laboratory data, other diagnostic studies and discussed them with the STUDENT DEVELOPMENT SPECIALIST. I have updated the medical record where necessary. I agree with the assessment, plan and orders as documented by the STUDENT DEVELOPMENT SPECIALIST. Seth Stokes MD. Pager: - Office: Critical Care Team - Daily Progress Note Date and time: 08/02/2021 7:50 AM Patient's name: Meg Georges Patient's account/billing number: [id number] Patient's Date of : 1965 Age: 56 [...] yes Ulcer prophylaxis: [] PPI Agent, [x] R0Zjbfc, [] Sucralfate, [] Other: Glycemic control: high insulin Spontaneous breathing trial: no Bowel regimen/urine output: milk of mag Indwelling catheter/lines: yes De-escalation: yes AWAKE & FOLLOWING COMMANDS: [x] No [] Yes CURRENT VENTILATION STATUS: [x] Ventilator [] BIPAP [] Nasal Cannula [] Room Air IF INTUBATED, ET TUBE MARKING AT LOWER LIP: [facility] SEDATION: Fentanyl gtt [x] Propofol gtt [] [...] Date 08/02/21 0000 - 08/02/21 2359 Shift [id number] 5610-4053 1475-1179 24 Hour Total INTAKE I.V.(mL/kg) 109.3(1.8) 109.3(1.8) [...] CO2: 32 (%) Position: Semi-Simon's Humidification Source: [facility] Lab Results Component Value Date PHART 7.406 07/06/2021 [id number] 34.8 07/06/2021 PO2ART 279.0 07/06/2021 DHZ7SME 21.4 07/06/2021 [id number] 99.4 07/06/2021 FIO2 30.0 08/02/2021 Lactic Acid: [...] 3 Blood Glucose: Recent Labs 07/31/21 0519 08/01/2145108/02/21453 GLUCOSE 209* 212* 247* HgBA1c: Lab Results Component Value Date LABA1C 9.4 06/28/2021 TSH: Lab Results Component Value Date TSH 2.06 07/24/2021 ANEMIA STUDIES No results for input(s): LABIRON, TIBC, FERRITIN, JGNBSLNJ21, FOLATE, OCCULTBLD in the last 72 hours. [...] MD Department of Internal Medicine/ Critical care [facility]) 08/02/2021, 7:50 AM Associated attestation - Aniket Padron MD - 08/02/2021 4:40 PM EDT Attending Physician Statement I have discussed the case of Meg Georges, including pertinent history and exam findings with the resident/fellow/medical student/MANAGER INSIDE/PA. I have seen and examined the patient and the coffey elements of the encounter have been performed by me. I agree with the assessment, plan and orders as documented by the resident/fellow/medical student/MANAGER INSIDE/PA With changes made to the note as [...] for trach change on POD 5 (Friday08/04/21) Skylar Coyle MD Pediatric Otolaryngology-Head and Neck Surgery [facility] Otolaryngology group Office ph# [phone] Also available in Savision Images from the original note were not [...] will continue to follow. Healthcare power of senior trial attorney placed on patient's chart. OVERNIGHT EVENTS: [...] EXPLORATION OF EPIDURAL PHLEGMON performed by Alisia Cevallos DO at [facility] OR CHOLECYSTECTOMY EYE SURGERY [address] shunt for open angle glaucoma. MRI compatible- device is all silicone LAMINECTOMY 07/06/2021 Posterior C1, LEFT C2 RHIZOTOMY, EXPLORATION OF EPIDURAL PHLEGMON PICC INSERTION VASCULAR ACCESS TEAM 07/10/2021 SHOULDER SURGERY right TRACHEOSTOMY 07/30/2021 TRACHEOSTOMY N/A 07/30/2021 TRACHEOTOMY performed by Erica Santiago MD at [facility] OR UPPER GASTROINTESTINAL ENDOSCOPY N/A 07/02/2021 EGD ESOPHAGOGASTRODUODENOSCOPY performed by Hari Wagner MD at [facility] Endoscopy FAMILY HISTORY Family History Problem [...] of Ms. Georges . Palliative care number [phone] Please call with any palliative questions or concerns. Palliative Care Team is available via perfect serve or via phone. Images from the original note were not included. [facility] -Progress Note Today's Date and Time: 08/01/2021, [...] placed 07/30/21 per ENT Infection Control Recommendations [place]bel Precautions Isolate for Covid until 07-23-21 Antimicrobial [...] through 08-20-21. Patient was transferred back to [facility] on 07-14-21 because of a positive [...] EXPLORATION OF EPIDURAL PHLEGMON performed by Alisia Cevallos DO at [facility] OR CHOLECYSTECTOMY EYE SURGERY [address] shunt for open angle glaucoma. MRI compatible- device is all silicone LAMINECTOMY 07/06/2021 Posterior C1, LEFT C2 RHIZOTOMY, EXPLORATION OF EPIDURAL PHLEGMON PICC INSERTION VASCULAR ACCESS TEAM 07/10/2021 SHOULDER SURGERY right TRACHEOSTOMY 07/30/2021 TRACHEOSTOMY N/A 07/30/2021 TRACHEOTOMY performed by Erica Santiago MD at [facility] OR UPPER GASTROINTESTINAL ENDOSCOPY N/A 07/02/2021 EGD ESOPHAGOGASTRODUODENOSCOPY performed by Hari Wagner MD at [facility] Endoscopy Medications: insulin lispro 0-12 Units [...] Friends and Family: Not on file Attends Restoration Services: Not on file Active Member of [...] Labs 07/31/21 0519 07/31/21 0519 07/31/21 1854 08/01/212 WBC 14.0* -- -- 14.0* HGB 9.5* < > 9.2* 9.1* HCT 27.4* < > 27.4* 27.1* PLT 502* -- -- 490* LYMPHOPCT 21* -- -- 19* MONOPCT 7 -- -- 5 < > = values in this interval not displayed. BMP: Recent Labs 07/31/2119 08/01/21451 NA 140 138 K 3.3* 3.2* CL [...] are unchanged. Suggest ultrasound correlation. Medical Decision Etnejz-Pwzknivn-Dohqb: SARS-CoV-2, Rapid COVID-19, Rapid Collected: 07/13/21 4831 Result status: Final [facility] lab[facility] Reference range: Not Detected Value: DETECTED [...] this assay. Fact sheet for Healthcare Providers: https://www.fda.gov/media/793009/downl oad Fact sheet for Patients: https://www.fda.gov/media/312206/downl oad Methodology: Isothermal Nucleic Acid Amplification Culture, Respiratory Order: [id number] Status: Final result Visible to patient: No (not released) Next appt: Today at 02:30 PM in Radiology (STV MRI RM 1 (1.5T)) Specimen Information: Sputum Aspirated 0 Result Notes Component 07/24/21 7648 Specimen Description .ASPIRATED SPUTUM Direct Exam < 10 EPITHELIAL CELLS/LPF Direct Exam >25 NEUTROPHILS/LPF Direct Exam MANY GRAM NEGATIVE RODS Abnormal Culture KLEBSIELLA AEROGENES HEAVY GROWTH Abnormal Culture NO NORMAL ROB [facility] [place] Susceptibility Klebsiella aerogenes (1) Antibiotic Interpretation Microscan Method Status aztreonam Sensitive <=1 BACTERIAL SUSCEPTIBILITY PANEL BECKY Final ceFAZolin Resistant BACTERIAL SUSCEPTIBILITY PANEL BEKCY Final cefTRIAXone Sensitive <=1 BACTERIAL SUSCEPTIBILITY PANEL [...] data were reviewed Discussed with nursing Staff, estate planner Infection Control and Prevention measures reviewed All prior entries were reviewed Administer medications as ordered Prognosis: Very Guarded Discharge planning reviewed Follow up as outpatient. Thank you for allowing us to participate in the care of this patient. Please call with questions. Jany Francis, STUDENT DEVELOPMENT SPECIALIST - ELECTRIC TRACK SWITCH MAINTAINER ATTESTATION: I have discussed the case, including pertinent history and exam findings with the STUDENT DEVELOPMENT SPECIALIST. I have evaluated the History, physical findings and pictures of the patient and the coffey elements of the encounter have been performed by me. I have reviewed the laboratory data, other diagnostic studies and discussed them with the STUDENT DEVELOPMENT SPECIALIST. I have updated the medical record where necessary. I agree with the assessment, plan and orders as documented by the STUDENT DEVELOPMENT SPECIALIST. Seth Stokes MD. Pager: - Office: Critical Care Team - Daily Progress Note Date and time: 08/01/2021 8:07 AM Patient's name: Meg Georges Patient's account/billing number: [id number] Patient's Date of : 1965 Age: 56 [...] yes Ulcer prophylaxis: [] PPI Agent, [x] Y4Brmwp, [] Sucralfate, [] Other: Glycemic control: medium [...] Date 08/01/21 0000 - 08/01/21 2359 Shift [id number] 0895-3577 9628-1428 24 Hour Total INTAKE I.V.(mL/kg) 159.6(2.6) 159.6(2.6) [...] CO2: 32 (%) Position: Semi-Simon's Humidification Source: [facility] Lab Results Component Value Date PHART 7.406 07/06/2021 KQC4MUZ 34.8 07/06/2021 PO2ART 279.0 07/06/2021 FLN1TQH 21.4 07/06/2021 A0ZHVJPY 99.4 07/06/2021 FIO2 30.0 07/30/2021 Lactic Acid: Lab Results Component Value Date LACTA 1.0 07/13/2021 LACTA 1.6 06/28/2021 DATA: Complete Blood Count: Recent Labs 07/30/21 04207/30/21 1719 07/31/21 0519 07/31/21 1854 08/01/21451 WBC 14.2* -- 14.0* -- [...] 23.9 06/28/2021 Basal Metabolic Profile: Recent Labs 07/30/2142307/31/21 0519 08/01/21451 NA 137 140 138 K 3.8 3.3* 3.2* BUN 15 CREATININE 0.70 0.78 0.72 CL 105 [...] No results for input(s): LABIRON, TIBC, FERRITIN, BHSOFKPI03, FOLATE, OCCULTBLD in the last 72 hours. [...] clinical course CODE STATUS: Full Code Keri Hatr MD Department of Internal Medicine/ Critical care [facility]) 08/01/2021, 8:07 AM Associated attestation - Aniket Padron MD - 08/01/2021 7:15 PM EDT Attending Physician Statement I have discussed the case of Meg Georges, including pertinent history and exam findings with the resident/fellow/medical student/MANAGER INSIDE/PA. I have seen and examined the patient and the coffey elements of the encounter have been performed by me. I agree with the assessment, plan and orders as documented by the resident/fellow/medical student/MANAGER INSIDE/PA With changes made to the note as [...] were not included. [facility] -Progress Note Today's Date and Time: 07/31/2021, [...] placed 07/30/21 per ENT Infection Control Recommendations Korbel Precautions Isolate for Covid until 07-23-21 Antimicrobial [...] through 08-20-21. Patient was transferred back to [facility] on 07-14-21 because of a positive [...] EXPLORATION OF EPIDURAL PHLEGMON performed by Alisia Cevallos DO at [facility] OR CHOLECYSTECTOMY EYE SURGERY [address] shunt for open angle glaucoma. MRI compatible- device is all silicone LAMINECTOMY 07/06/2021 Posterior C1, LEFT C2 RHIZOTOMY, EXPLORATION OF EPIDURAL PHLEGMON PICC INSERTION VASCULAR ACCESS TEAM 07/10/2021 SHOULDER SURGERY right TRACHEOSTOMY 07/30/2021 TRACHEOSTOMY N/A 07/30/2021 TRACHEOTOMY performed by Erica Santiago MD at [facility] OR UPPER GASTROINTESTINAL ENDOSCOPY N/A 07/02/2021 EGD ESOPHAGOGASTRODUODENOSCOPY performed by Hari Wagner MD at [facility] Endoscopy Medications: insulin lispro 0-12 Units [...] Friends and Family: Not on file Attends Restoration Services: Not on file Active Member of [...] following labs: CBC with Differential: Recent Labs 07/30/2142307/30/21 0424 07/30/21 1719 07/31/21 0519 WBC 14.2* -- -- 14.0* HGB 9.3* < > 9.6* 9.5* HCT 27.0* < > 29.5* 27.4* PLT 491* -- -- 502* LYMPHOPCT 26 -- -- 21* MONOPCT 4 -- -- 7 < > = values in this interval not displayed. BMP: Recent Labs 07/30/2142307/31/21 0519 NA 137 140 K 3.8 3.3* [...] are unchanged. Suggest ultrasound correlation. Medical Decision Pkhoad-Iujyggfo-Pwbvy: SARS-CoV-2, Rapid COVID-19, Rapid Collected: 07/13/21 2700 Result status: Final [facility]ing [facility] Reference range: Not Detected Value: [...] this assay. Fact sheet for Healthcare Providers: https://www.fda.gov/media/011195/downl oad Fact sheet for Patients: https://www.fda.gov/media/892748/downl oad Methodology: Isothermal Nucleic Acid Amplification Culture, Respiratory Order: [id number] Status: Final result Visible to patient: No (not released) Next appt: Today at 02:30 PM in Radiology (STV MRI RM 1 (1.5T)) Specimen Information: Sputum Aspirated 0 Result Notes Component 07/24/21 4945 Specimen Description .ASPIRATED SPUTUM Direct Exam < 10 EPITHELIAL CELLS/LPF Direct Exam >25 NEUTROPHILS/LPF Direct Exam MANY GRAM NEGATIVE RODS Abnormal Culture KLEBSIELLA AEROGENES HEAVY GROWTH Abnormal Culture NO NORMAL ROB Resulting Agency [facility] [place] Susceptibility Klebsiella aerogenes (1) Antibiotic [...] data were reviewed Discussed with nursing Staff, estate planner Infection Control and Prevention measures reviewed All prior entries were reviewed Administer medications as ordered Prognosis: Very Guarded Discharge planning reviewed Follow up as outpatient. Thank you for allowing us to participate in the care of this patient. Please call with questions. Jany Francis, STUDENT DEVELOPMENT SPECIALIST - ELECTRIC TRACK SWITCH MAINTAINER ATTESTATION: I have discussed the case, including pertinent history and exam findings with the STUDENT DEVELOPMENT SPECIALIST. I have evaluated the History, physical findings and pictures of the patient and the coffey elements of the encounter have been performed by me. I have reviewed the laboratory data, other diagnostic studies and discussed them with the STUDENT DEVELOPMENT SPECIALIST. I have updated the medical record where necessary. I agree with the assessment, plan and orders as documented by the STUDENT DEVELOPMENT SPECIALIST. Seth Stokes MD. Pager: - Office: Images from the original note were not included. Occupational Therapy [facility] Occupational Therapy Not Seen Note DATE: 07/31/2021 [...] mL 30 mL Per NG tube Daily Skylar Coyle MD 30 mL at 07/29/21 1013 bisacodyl (DULCOLAX) suppository 10 mg 10 mg Rectal Daily PRN Skylar Coyle MD 0.9 % sodium chloride infusion IntraVENous Continuous Skylar Coyle MD 10 mL/hr at 07/31/21 0724 Rate Verify at 07/31/21 0724 0.9 % sodium chloride infusion IntraVENous PRN Skylar Coyle MD LORazepam (ATIVAN) injection 2 mg 2 mg IntraVENous Q4H PRN Skylar Coyle MD 2 mg at 07/28/21 0206 labetalol (NORMODYNE;TRANDATE) injection 10 mg 10 mg IntraVENous Once Skylar Coyle MD carvedilol (COREG) tablet 25 mg 25 mg Oral BID WC Skylar Coyle MD 25 mg at 07/30/21 1745 fentaNYL (SUBLIMAZE) injection 50 mcg 50 mcg IntraVENous Once Skylar Coyle MD fentaNYL (SUBLIMAZE) injection 50 mcg 50 mcg IntraVENous Once Skylar Coyle MD famotidine (PEPCID) 20 mg in sodium chloride (PF) 10 mL injection 20 mg IntraVENous BID Skylar Coyle MD 20 mg at 07/30/21 1956 propofol injection 5-50 mcg/kg/min IntraVENous Continuous Skylar Coyle MD 5.1 mL/hr at 07/31/21 0724 15 mcg/kg/min at 07/31/21 0724 sodium chloride flush 0.9 % [facility]21 Hospital Discharge instructions Anna Veliz [...] Contact Information Primary Emergency Contact: Hina Thomas [facility] Relation: Brother/Sister Past Surgical History: Past Surgical History: Procedure Laterality Date ACHILLES TENDON SURGERY left BACK SURGERY L 4 and 5 1995, 1996 CERVICAL FUSION N/A 07/06/2021 POSTERIOR CERVICAL C1 LAMINECTOMY. LEFT C2 RHIZOTOMY, EXPLORATION OF EPIDURAL PHLEGMON performed by Alisia Cevallos DO at [facility] OR CHOLECYSTECTOMY EYE SURGERY [address] shunt for open angle glaucoma. MRI compatible- device is all silicone LAMINECTOMY 07/06/2021 Posterior C1, LEFT C2 RHIZOTOMY, EXPLORATION OF EPIDURAL PHLEGMON PICC INSERTION VASCULAR ACCESS TEAM 07/10/2021 SHOULDER SURGERY right TRACHEOSTOMY 07/30/2021 TRACHEOSTOMY N/A 07/30/2021 TRACHEOTOMY performed by Erica Santiago MD at [facility] OR UPPER GASTROINTESTINAL ENDOSCOPY N/A 07/02/2021 EGD ESOPHAGOGASTRODUODENOSCOPY performed by Hari Wagner MD at [facility] Endoscopy Immunization History: There is no immunization history on file for this patient. 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 ACP (advance care [...] Dependent Dressing Dependent Toileting Dependent Feeding Dependent Biodiesel Engine Specialist Dependent Med Delivery crushed and via right [...] Healing % 79 08/02/21 1537 Wound Assessment Denuded;[place]/red 08/10/21 1200 Drainage Amount Scant 08/10/21 1200 [...] Readmission: 24 Discharging to Facility/ Agency Name: [facility] Address: [address] [place] [address] Dialysis Facility (if applicable) Name: Address: Dialysis Schedule: Phone: Fax: Sign Builder Supervisor/Health Center Associate signature: ICIAN SECTION Prognosis: Fair Condition at [...] the diagnosis listed and that she requires [facility] for less 30 days. Update Admission [...] PCP as outpatient. documented in this encounter [employer] Phone: 07-14-2021 History of Present illness Narrative Called and spoke with Jess GARVIN and gave report. Lunch tray provided - puree and thickened liquids. Pt sitting up and eating at this time. Denies further needs. Called and updated sister, Hina with status. Pt accepted to [facility]- bed pending. documented in this encounter [employer] Phone: 07-10-2021 History of Present illness Narrative [...] Urology Speech Language Pathology Speech Language Pathology [facility] Cognitive/Dysphagia Treatment Note Date: 07/10/2021 Patient s Name: Meg Georges Patient Active Problem List Diagnosis Code Cellulitis of left finger L03.012 Altered mental state R41.82 Encephalitis G04.90 Encephalopathy G93.40 CIDP (chronic inflammatory demyelinating polyneuropathy) ([facility]) G61.81 Sepsis ([facility]) A41.9 Bacteremia R78.81 Hypothyroidism E03.9 Hypokalemia E87.6 Type 2 diabetes mellitus with diabetic polyneuropathy ([facility]) E11.42 Primary hypertension I10 Upper GI bleed K92.2 Non-intractable vomiting R11.10 Unintentional weight loss R63.4 Acute metabolic encephalopathy G93.41 MSSA (methicillin susceptible Staphylococcus aureus) septicemia ([facility]) A41.01 CRP elevated R79.82 Bandemia D72.825 Allergy to multiple antibiotics Z88.1 Pyogenic inflammation of bone ([facility]) M86.9 Acute intractable headache R51.9 Acute osteomyelitis of cervical spine ([facility]) M46.22 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 G06.1 Pain: 0/10 Cognitive Treatment Treatment time: 5777-0937 Subjective: [] Alert [x] Cooperative [] Confused [...] recommended at discharge. Completed by Chaitanya Pratt Customer Support Consultant Clinician Co-signed byHina Sawyer M.S. CCC/SANDWICH MAKER Images from the original note were not included. [facility] Internal Medicine Teaching Residency Program Inpatient Daily Progress Note __ Patient: Meg Georges Date of : 1965 Acct: [id number] Room: 0146/0146-01 Admit date: 06/28/2021 Today's date: [...] neuropathy follows neurology. [place] [facility], found confused outside. Imaging negative. She complains [...] Encephalitis Encephalopathy CIDP (chronic inflammatory demyelinating polyneuropathy) ([facility]) Bacteremia Hypothyroidism Hypokalemia Type 2 diabetes mellitus with diabetic polyneuropathy ([facility]) Primary hypertension Upper GI bleed Non-intractable vomiting [...] antihypertensives. Elevated troponins: Downtrended likely type II UT Hypokalemia: Repeat potassium level and replace if needed Left Vocal cord paralysis: Ongoing x 1 month. ENT on board. Plan for injection laryngoplasty for voice/swallowing improvement at some point. Passed swallow study. Diet: Easy to chew DVT ppx : Lovenox held GI ppx: None PT/OT/SW: Consulted Discharge Planning: In process Rufus Argueta MD Internal Medicine Resident, PGY- 1 [facility]; [place], [place] 07/10/2021, 7:18 AM Associated attestation - Silver Carmona MD - 07/10/2021 11:42 AM EDT Images from the original note were not included. Attending Physician Statement I have discussed the case, including pertinent history and exam findings with the resident and the team. I have seen and examined the patient and the cfofey elements of the encounter have been performed [...] were not included. [facility] - Infectious diseases evaluation admission date 06/28/2021 [...] line due to nafciline Infection Control Recommendations Korbel Precautions Contact Isolation Antimicrobial Stewardship Recommendations Simplification of therapy Targeted therapy History of Present Illness: Initial history: Meg Georges is a 56 y.o.-year-old female presented to the ED for altered mental status. Patient is currently admitted under neurology service. Patient [place] [facility] after an episode of confusion overnight where she was [place] [facility] [place]. She had CT head done at outside facility which did not show any acute changes, telestroke was consulted for the concern of confusion, they recommended transfer to [facility] for MRI of the brain. BC SA MSSA and LP neg CRP elevated and WBc up - creat normal 06/29 mentally recovered Neck pain x 1 mo Left sole callus was infected x 2 months ago at [facility] She gets her IvIg through a periph [...] EXPLORATION OF EPIDURAL PHLEGMON performed by Alisia Cevallos DO at [facility] OR CHOLECYSTECTOMY EYE SURGERY [address] shunt for open angle glaucoma. MRI compatible- device is all silicone LAMINECTOMY 07/06/2021 Posterior C1, LEFT C2 RHIZOTOMY, EXPLORATION OF EPIDURAL PHLEGMON SHOULDER SURGERY right UPPER GASTROINTESTINAL ENDOSCOPY N/A 07/02/2021 EGD ESOPHAGOGASTRODUODENOSCOPY performed by Hari Wagner MD at [facility] Endoscopy Medications: levothyroxine 100 mcg Oral [...] Friends and Family: Not on file Attends Restoration Services: Not on file Active Member of [...] Crowe MD Office: Perfect serve / office [phone] Neurosurgery NATE/Resident Daily Progress Note Chief Complaint [...] 120 (H) 06/28/2021 Culture, Anaerobic and Aerobic [[id number]] Collected: 07/06/21 214 Updated: 07/09/21 0731 Specimen Type: Swab Specimen [...] 07/09/21 3:43 PM Associated attestation - Alisia Cevallos DO - 07/09/2021 3:58 PM EDT Neurosurgery attending: Patient seen 07/09/2021 I have reviewed the chart, studied the images, and examined the patient personally and agree with the NATE/Resident except with following addendum: POD 3 Hoarseness and pain significantly improved Drain Dced Collar Trend inflammatory marker, improving CRP X.Vaishali Cevallos DO Neurosurgeon Speech Language Pathology Speech Language Pathology [facility] Cognitive Treatment Note Date: 07/09/2021 Patient s Name: Meg Georges Diagnosis: Patient Active Problem List Diagnosis Code Cellulitis of left finger L03.012 Altered mental state R41.82 Encephalitis G04.90 Encephalopathy G93.40 CIDP (chronic inflammatory demyelinating polyneuropathy) ([facility]) G61.81 Sepsis ([facility]) A41.9 Bacteremia R78.81 Hypothyroidism E03.9 Hypokalemia E87.6 Type 2 diabetes mellitus with diabetic polyneuropathy ([facility]) E11.42 Primary hypertension I10 Upper GI bleed K92.2 Non-intractable vomiting R11.10 Unintentional weight loss R63.4 Acute metabolic encephalopathy G93.41 MSSA (methicillin susceptible Staphylococcus aureus) septicemia ([facility]) A41.01 CRP elevated R79.82 Bandemia D72.825 Allergy to multiple antibiotics Z88.1 Pyogenic inflammation of bone ([facility]) M86.9 Acute intractable headache R51.9 Acute osteomyelitis of cervical spine ([facility]) M46.22 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 G06.1 Pain: 8/10 Cognitive Treatment Treatment time: 0776-3403 Subjective: [x] Alert [x] Cooperative [] Confused [] Agitated [] Lethargic Objective/Assessment: Recall: Delayed recall; 1/4 increased to 2/4 with min verbal cue, 1/4 increased to 3/4 with min verbal cues Word list retention: Word placement; 3/11 increased to 9/11 with repetitions Functional memory: Paragraph facts; 3/14 increased to 8/14 with repetitions and min verbal cue Problem Solving/Reasoning: Category members: Seymour; 2/8 increased to 4/8 with min-mod verbal [...] [x] Continue ST services [] Discharge from : Discharge recommendations: [] Further therapy recommended at discharge.The patient should be able to tolerate at least 3 hours of therapy per day over 5 days or 15 hours over 7 days. [x] Further therapy recommended at discharge. [] No therapy recommended at discharge. Completed by Chaitanya Pratt Customer Support Consultant Clinician Co-signed by Hina Sawyer M.S. CCC/SANDWICH MAKER Physical Therapy Facility/Department: [address] [place] Daily Treatment Note Name: [...] progress notes indicate needs to mobilize . [address] thick liquids. Documentation of vocal cord paralysis. [...] BLE, Hip abduction- x10 BLE. AM-PAC Score AM-[facility] Inpatient Mobility Raw Score : 14 (07/09/21 [...] from the original note were not included. [facility] Internal Medicine Teaching Residency Program Inpatient Daily Progress Note __ Patient: Meg Georges Date of : 1965 Acct: [id number] Room: [address] [place] [address] Admit date: 06/28/2021 Today's date: 07/09/21 Number [...] neuropathy follows neurology. [place] [facility], found confused outside. Imaging negative. She complains [...] PLAN Assessment and Plan: Principal Problem: Sepsis ([facility]) Active Problems: Altered mental state Encephalitis Encephalopathy CIDP (chronic inflammatory demyelinating polyneuropathy) ([facility]) Bacteremia Hypothyroidism Hypokalemia Type 2 diabetes mellitus with diabetic polyneuropathy ([facility]) Primary hypertension Upper GI bleed Non-intractable vomiting Unintentional weight loss Acute metabolic encephalopathy MSSA (methicillin susceptible Staphylococcus aureus) septicemia ([facility]) CRP elevated Bandemia Allergy to multiple antibiotics Pyogenic inflammation of bone ([facility]) Acute intractable headache Acute osteomyelitis of cervical spine ([facility]) 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 [...] antihypertensives. Elevated troponins: Downtrended likely type II UT Hypokalemia: Repeat potassium level and replace if needed Left Vocal cord paralysis: Ongoing x 1 month. ENT on board. Plan for injection laryngoplasty for voice/swallowing improvement at some point. Passed swallow study. Diet: Easy to chew DVT ppx : Lovenox held GI ppx: None PT/OT/SW: Consulted Discharge Planning: In process Clark Iglesias MD Internal Medicine Resident, PGY-1 [facility]; [place], [place] 7:13 AM 07/09/2021 Please note that part of this chart was generated using voice recognition dictation software. Although every effort was made to ensure the accuracy of this automated milk drier, some errors in milk drier may have occurred. Associated attestation - Johnny [...] 120 (H) 06/28/2021 Culture, Anaerobic and Aerobic [[id number]] Collected: 07/06/212140 Updated: 07/08/21820 Specimen Type: Swab [...] infection Jose Alfredo Patiño DO Neurosurgery O: [phone] C: [phone] Physical Therapy Facility/Department: [address] [place] Physical Therapy Reassessment Name: [...] progress notes indicate needs to mobilize . [address] thick liquids. Documentation of vocal cord paralysis. 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 Office Copy Selector rubbed some lotion on the area and [...] actively, heel slides, assisted SLR. AM-PAC Score AM-PAC Inpatient Mobility Raw Score : 14 (07/08/21915) AM-PAC Inpatient T-Scale Score : 38.1 (07/08/21915) Mobility Inpatient CMS 0-100% Score: 61.29 (07/08/21915) Mobility Inpatient CMS G-Code Modifier : CL (07/08/21915) Goals Short [...] from the original note were not included. [facility] Internal Medicine Teaching Residency Program Inpatient Daily Progress Note __ Patient: Meg Georges Date of : 1965 Acct: [id number] Room: [address] [place] [address] Admit date: 06/28/2021 Today's date: 07/08/21 Number [...] neuropathy follows neurology. [place] [facility], found confused outside. Imaging negative. She complains [...] mL/hr, PRN Diagnostic Labs: CBC: Recent Labs 07/06/21 0752 07/06/21 1641 07/06/21192107/07/21 03407/08/21 0617 WBC 7.7 -- -- 11.1 11.4* RBC 3.27* -- -- 3.34* 2.51* HGB 8.5* < > 9.9* 9.2* 6.9* HCT 27.5* < > 30.6* 27.9* 21.5* MCV 84.1 -- -- 83.5 85.7 RDW 18.2* -- -- 17.2* 18.6* PLT 378 -- -- 372 328 < > = values in this interval not displayed. BMP: Recent Labs 07/06/21 07507/06/21 16407/06/21192107/07/21 03407/08/21 0617 NA 133* < > 140 [...] Encephalitis Encephalopathy CIDP (chronic inflammatory demyelinating polyneuropathy) ([facility]) Bacteremia Hypothyroidism Hypokalemia Type 2 diabetes mellitus [...] antihypertensives. Elevated troponins: Downtrended likely type II UT Hypokalemia: Repeat potassium level and replace if needed Left Vocal cord paralysis: Ongoing x 1 month. ENT on board. Plan for injection laryngoplasty for voice/swallowing improvement at some point. Passed swallow study. Diet: Easy to chew DVT ppx : Lovenox held GI ppx: None PT/OT/SW: Consulted Discharge Planning: In process Clark Iglseias MD Internal Medicine Resident, PGY-1 [facility]; [place], [place] 7:24 AM 07/08/2021 Please note that part of this chart was generated using voice recognition dictation software. Although every effort was made to ensure the accuracy of this automated milk drier, some errors in milk drier may have occurred. Associated attestation - Johnny [...] were not included. [facility] - Infectious diseases evaluation admission date 06/28/2021 [...] the rise despite tx Infection Control Recommendations Korbel Precautions Contact Isolation Antimicrobial Stewardship Recommendations Simplification of therapy Targeted therapy History of Present Illness: Initial history: Meg Georges is a 56 y.o.-year-old female presented to the ED for altered mental status. Patient is currently admitted under neurology service. Patient [place] [facility] [place] after an episode of confusion overnight where she was found wandering [place] [facility] [place]. She had CT head done at outside facility which did not show any acute changes, telestroke was consulted for the concern of confusion, they recommended transfer to [facility] for MRI of the brain. BC SA MSSA and LP neg CRP elevated and WBc up - creat normal 06/29 mentally recovered Neck pain x 1 mo Left sole callus was infected x 2 months ago at [facility] She gets her IvIg through a periph [...] ESOPHAGOGASTRODUODENOSCOPY performed by Hari Wagner MD at [facility] Endoscopy Medications: sodium chloride flush 5-40 [...] Friends and Family: Not on file Attends Restoration Services: Not on file Active Member of [...] Crowe MD Office: [facility] / office [phone] Neurology Nurse Practitioner Progress Note INTERVAL HISTORY: [...] who was admitted as a transfer from [facility] ED on 06/28/2021 for AMS. As per medical records, patient was found wandering [place] [facility] [place]. She was taken to [facility] ED with acute lethargy and confusion. Patient received Narcan with no improvement. Patient was evaluated by Dr. Helton through telestroke; NIH score was 1. CT head-motion degraded but no obvious acute stroke. Patient was transferred to [facility] for further evaluation. She was initially [...] ESOPHAGOGASTRODUODENOSCOPY performed by Hari Wagner MD at [facility] Endoscopy PHYSICAL EXAM: Blood pressure (!) [...] TSH 0.15 (L) 06/28/2021 INR 1.2 06/28/2021 [id number] 06/28/2016 LABA1C 9.4 (H) 06/28/2021 LABMICR [...] diabetic peripheral neuropathy; demyelinating neuropathy panel from [facility] was normal. Pt has been on [...] to ensure the accuracy of this automated milk drier, some errors in milk drier may have occurred. Neurosurgery NATE/Resident Daily Progress Note Chief Complaint Patient presents with Altered Mental Status 07/07/2021 10:39 AM Chart reviewed. Returned from surgery yesterday evening. Pain well controlled. Tolerating oral diet. Vitals: 07/07/21 0300 07/07/21 0400 07/07/21 0500 07/07/21 0600 BP: (!) 142/78 Pulse: 85 90 81 83 Resp: 15 Temp: 97.8 F (36.6 C) TempSrc: [...] 120 (H) 06/28/2021 Culture, Anaerobic and Aerobic [[id number]] Collected: 07/06/212140 Updated: 07/06/212331 Specimen Type: Swab [...] Therapies Jose Alfredo Patiño DO Neurosurgery O: [phone] C: [phone] Images from the original note were not included. [facility] Internal Medicine Teaching Residency Program Inpatient Daily Progress Note __ Patient: Meg Georges Date of : 1965 Acct: [id number] Room: 0146/0146- Admit date: 06/28/2021 Today's date: 07/07/21 Number [...] neuropathy follows neurology. [place] [facility], found confused outside. Imaging negative. She complains [...] mL, PRN tiZANidine, 2 mg, Q8H PRN fzoiuiwyrm-oisamvrzrfmfn-fsxyuxem, 1 tablet, Q4H PRN hydrALAZINE, 10 mg, [...] antihypertensives. Elevated troponins: Downtrended likely type II UT Hypokalemia: K+ 3.9 today. Repeat potassium level and replace if needed Left Vocal cord paralysis: Ongoing x 1 month. ENT on board. Plan for injection laryngoplasty for voice/swallowing improvement at some point. Passed swallow study. Rufus Argueta MD Internal Medicine Resident, PGY- 1 [facility]; [place], [place] 07/07/2021, 7:16 AM Associated attestation - [...] original note were not included. Occupational Therapy [facility] Occupational Therapy Not Seen Note DATE: 07/06/2021 NAME: Meg Georges : 1965 Patient not seen this date for Occupational Therapy due to: Surgery/Procedure: POSTERIOR CERVICAL C1-2 LAMINECTOMY Next Scheduled Treatment: 07/07 Speech Language Pathology Speech Language Pathology [facility] Cognitive/Dysphagia Treatment Note Date: 07/06/2021 Patient s Name: Meg Georges Diagnosis: Patient Active Problem List Diagnosis Code Cellulitis of left finger L03.012 Altered mental state R41.82 Encephalitis G04.90 Encephalopathy G93.40 CIDP (chronic inflammatory demyelinating polyneuropathy) ([facility]) G61.81 Sepsis ([facility]) A41.9 Bacteremia R78.81 Hypothyroidism E03.9 Hypokalemia E87.6 Type 2 diabetes mellitus with diabetic polyneuropathy ([facility]) E11.42 Primary hypertension I10 Upper GI bleed K92.2 Non-intractable vomiting R11.10 Unintentional weight loss R63.4 Acute metabolic encephalopathy G93.41 MSSA (methicillin susceptible Staphylococcus aureus) septicemia ([facility]) A41.01 Elevated C-reactive protein (CRP) R79.82 Bandemia D72.825 Allergy to multiple antibiotics Z88.1 Pyogenic inflammation of bone ([facility]) M86.9 Acute intractable headache R51.9 Pain: 0/10 [...] 01/28 with min verbal cues Category members: Seymour; 8/10 increased to 10/10 with min verbal cues Wrong category: Seymour; 5/10 increased to 10/10 with repetitions and [...] recommended at discharge. Completed by Chaitanya Pratt Customer Support Consultant Clinician Co-signed by Robbie Mckeon M.A.CCC/SANDWICH MAKER Images from the original note were not included. [facility] - Infectious diseases evaluation admission date 06/28/2021 [...] the rise despite tx Infection Control Recommendations Korbel Precautions Contact Isolation Antimicrobial Stewardship Recommendations Simplification of therapy Targeted therapy History of Present Illness: Initial history: Meg Georges is a 56 y.o.-year-old female presented to the ED for altered mental status. Patient is currently admitted under neurology service. Patient [place] after an episode of confusion overnight where she was found wandering [place]. She had CT head done at outside facility which did not show any acute changes, telestroke was consulted for the concern of confusion, they recommended transfer to [facility] for MRI of the brain. BC SA MSSA and LP neg CRP elevated and WBc up - creat normal 06/29 mentally recovered Neck pain x 1 mo Left sole callus was infected x 2 months ago at the [facility] She gets her IvIg through a periph [...] ESOPHAGOGASTRODUODENOSCOPY performed by Hari Wagner MD at [facility] Endoscopy Medications: sodium chloride flush 5-40 [...] Friends and Family: Not on file Attends Restoration Services: Not on file Active Member of [...] following labs: CBC with Differential: Recent Labs 07/05/2151607/05/2151607/06/21 07507/06/21 07507/06/21164007/06/211921 WBC 10.0 -- 7.7 -- -- -- HGB 7.9* < > 8.5* < > 6.7* 9.9* HCT 24.6* < > 27.5* < > 21.0* 30.6* PLT 341 -- 378 -- -- -- LYMPHOPCT 26 -- 20* -- -- -- MONOPCT 4 -- 6 -- -- -- < > = values in this interval not displayed. BMP: Recent Labs 07/05/2151607/05/21 1058 07/06/21 0752 07/06/21164007/06/211921 NA 138 -- 133* 140 140 K [...] Crowe MD Office: Perfect serve / office [phone] [facility] Neurology IN-PATIENT SERVICE [facility] Progress Note Date: 07/06/2021 Patient name: Meg Georges Date of admission: 06/28/2021 11:59 AM Account: [id number] Date of : 1965 PCP: Neri Santa [...] She was found wandering [place] of her [place]. She was admitted to the medicine team and was found to have sepsis as well as a GI bleed. Neurology was consulted due to altered mentation and headache. CT head was done and was unremarkable. CTA head neck unremarkable. EEG was normal. Spinal tap was done in the ED with CSF studies negative for meningitis or HOUSEKEEPING/LAUNDRY infection. For her headache she was placed [...] ESOPHAGOGASTRODUODENOSCOPY performed by Hari Wagner MD at [facility] Endoscopy Medications Prior to Admission: Prior [...] Labs 07/05/21 0818 07/05/21 1136 07/05/21 1554 07/05/211953 POCGLU 147* 134* 185* 102 Intake/Output Summary [...] [Z88.1] Priority: Medium Pyogenic inflammation of bone ([facility]) [M86.9] Priority: Medium Acute intractable headache [R51.9] [...] On nafcillin -CSF studies are negative for HOUSEKEEPING/LAUNDRY infection. -Continue Depakene 250mg BID for headache. [...] 7:57 AM Copy sent to Dr. Neri Santa, Sr, DO Associated attestation - Pawan Dutton [...] from the original note were not included. [facility] Internal Medicine Teaching Residency Program Inpatient Daily Progress Note __ Patient: Meg Georges Date of : 1965 Acct: [id number] Room: 0146/0146-01 Admit date: 06/28/2021 Today's date: [...] neuropathy follows neurology. Present[place] [facility], found confused outside. Imaging negative. She complains [...] mL, PRN tiZANidine, 2 mg, Q8H PRN jwapbjjboh-mowjowwhkztzm-wmyycwlh, 1 tablet, Q4H PRN hydrALAZINE, 10 mg, [...] antihypertensives. Elevated troponins: Downtrended likely type II UT Hypokalemia: K+ 3.2 today. Likely due to diarrhea. Repeat potassium level and replace if needed Left Vocal cord paralysis: Ongoing x 1 month. ENT on board. Plan for injection laryngoplasty for voice/swallowing improvement at some point. Passed swallow study. Rufus Argueta MD Internal Medicine Resident, PGY- 1 [facility]; [place], [place] 07/06/2021, 7:41 AM Associated attestation - [...] Chew diet with mildly thick liquids per SANDWICH MAKER 2. Send Magic Cup ONS with meals Nutrition Assessment: Pt made NPO for MBSS d/t concern for aspiration. SANDWICH MAKER recommending easy to chew and mildly thick [...] ADULT DIET; Easy to Chew; Mildly Thick ([place]) Anthropometric Measures: Height: 5' 5 (165.1 cm) [place] Body Weight (IBW): 125 lbs (57 kg) Current Body Weight: 145 lb (65.8 kg), 116 % IBW. Weight Source: Stated Current BMI (kg/m2): 24.1 BMI Categories: Normal Weight (BMI 18.5-24.9) Estimated Daily Nutrient Needs: Energy Requirements Based On: Kcal/kg Weight Used for Energy Requirements: Current Energy (kcal/day): 6571-5126 kcals/day Weight Used for Protein Requirements: Current [...] determine Mary Acosta MS, RD, LD Contact: [phone] Images from the original note were not included. [facility] - Infectious diseases evaluation admission date 06/28/2021 [...] the rise despite tx Infection Control Recommendations Korbel Precautions Contact Isolation Antimicrobial Stewardship Recommendations Simplification of therapy Targeted therapy History of Present Illness: Initial history: Meg Georges is a 56 y.o.-year-old female presented to the ED for altered mental status. Patient is currently admitted under neurology service. Patient [place] [facility] after an episode of confusion overnight where she was found wandering [place] [facility]. She had CT head done at outside facility which did not show any acute changes, telestroke was consulted for the concern of confusion, they recommended transfer to [facility] for MRI of the brain. BC SA MSSA and LP neg CRP elevated and WBc up - creat normal 06/29 mentally recovered Neck pain x 1 mo Left sole callus was infected x 2 months ago at [facility] She gets her IvIg through a periph [...] ESOPHAGOGASTRODUODENOSCOPY performed by Hari Wagner MD at [facility] Medications: gabapentin 200 mg Oral [...] Friends and Family: Not on file Attends Restoration Services: Not on file Active Member of [...] following labs: CBC with Differential: Recent Labs 07/04/216 07/05/21 0517 WBC 10.4 10.0 HGB 7.4* [...] Negrete MD Office: Perfect serve / office [phone] I have discussed the care of the [...] from the original note were not included. [facility] Internal Medicine Teaching Residency Program Inpatient Daily Progress Note __ Patient: Meg Georges Date of : 1965 Acct: [id number] Room: [facility]/0146- Admit date: 06/28/2021 Today's date: 07/05/21 Number [...] neuropathy follows neurology. [place] [facility], found confused outside. Imaging negative. She complains [...] mL, PRN tiZANidine, 2 mg, Q8H PRN nmvmvzazvj-enaufrybhbqei-flabkeje, 1 tablet, Q4H PRN hydrALAZINE, 10 mg, [...] controlled Elevated troponins: Downtrended likely type II UT -echo done Hypokalemia: K+ 3.1 today. On daily 40 replacement. Repeat potassium level and replace if needed Left Vocal cord paralysis: Ongoing x 1 month. ENT on board. Plan for injection laryngoplasty for voice/swallowing improvement at some point. Passed swallow study. Tami Vega MD Internal Medicine Resident, PGY- 2 [facility]; [place], [place] 07/05/2021, 10:37 AM Associated attestation - [...] She was found wandering [place] of her [place] [facility]. She was admitted to the medicine team and was found to have sepsis as well as a GI bleed. Neurology was consulted due to altered mentation and headache. CT head was done and was unremarkable. CTA head neck unremarkable. EEG was normal. Spinal tap was done in the ED with CSF studies negative for meningitis or HOUSEKEEPING/LAUNDRY infection. For her headache she was placed [...] ESOPHAGOGASTRODUODENOSCOPY performed by Hari Wagner MD at [facility] Social History: Meg Georges reports [...] this interval not displayed. BMP: Recent Labs 07/03/2143807/03/2143807/03/21163607/04/2131507/05/21516 NA 134* -- -- 138 138 K [...] LABA1C 9.4 (H) 06/28/2021 LABMICR 7 06/25/2013 [id number] 06/28/2016 Diagnostic data reviewed: CT HEAD [...] of CIDP -CSF studies are negative for HOUSEKEEPING/LAUNDRY infection -Continue Depakene 250mg BID for headache [...] to ensure the accuracy of this automated milk drier, some errors in milk drier may have occurred. Neurosurgery NATE/Resident Daily Progress [...] 114/62 Pulse: 85 84 85 80 Resp: 16 Temp: 98 F (36.7 C) 97.8 [...] time until swallow eval completed - Dr Cevallos to discuss options regarding Abx vs surgical Please contact neurosurgery with any changes in patients neurologic status. Kam Prado, BRIDGER 07/05/21 6:27 AM Associated attestation - Alisia Cevallos DO - 07/05/2021 7:36 PM EDT Neurosurgery [...] in AM unless sudden neurological deterioration X.Vaishali Cevallos DO Neurosurgeon Occupational Therapy Facility/Department: [address] [facility] [address] Occupational Therapy Initial Assessment [...] Rolling ADL Assistive Devices: Long-handled Sponge;Long-handled Shoe Horn;Quality Control Supervisor;Sock-Aid Hard Patient Diagnosis(es): The primary encounter diagnosis [...] Ambulation Assistance: Independent Transfer Assistance: Independent Active Underwriter: Yes Mode of Transportation: Car 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 Type of Occupation: [employer] Leisure & Hobbies: shopping Additional Comments: Support from restorationist friends, but unsure if she would have [...] Hand Dominance Hand Dominance: Right AM-PAC Score AM-[facility] Inpatient Daily Activity Raw Score: 19 (07/04/21 1630) AM-[facility] Inpatient ADL T-Scale Score : 40.22 (07/04/21 [...] 33 Minutes PAIGE Moreira Physical Therapy Facility/Department: [address] [facility] [address] Physical Therapy Initial Assessment [...] (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) Restraints Restraints Initially in Place: No [...] Ambulation Assistance: Independent Transfer Assistance: Independent Active Underwriter: Yes Mode of Transportation: Car 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 Type of Occupation: [employer] Leisure & Hobbies: shopping Additional Comments: Support from restorationist friends, but unsure if she would have [...] Not formally assessed due to c-spine precautions; machine installer strength WFL Strength LUE Strength LUE: Exception Comment: Not formally assessed due to c-spine precautions; machine installer strength WFL Bed mobility Supine to Sit: Contact guard assistance Sit to Supine: (Did not formally assess- 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 More Ambulation?: No Stairs/Curb Stairs?: No Balance [...] PT Speech Language Pathology Speech Language Pathology [facility] Cognitive Treatment Note Date: 07/04/2021 Patient s Name: Meg Georges Diagnosis: Patient Active Problem List Diagnosis Code Cellulitis of left finger L03.012 Altered mental state R41.82 Encephalitis G04.90 Encephalopathy G93.40 CIDP (chronic inflammatory demyelinating polyneuropathy) ([facility]) G61.81 Sepsis ([facility]) A41.9 Bacteremia R78.81 Hypothyroidism E03.9 Hypokalemia E87.6 Type 2 diabetes mellitus with diabetic polyneuropathy ([facility]) E11.42 Primary hypertension I10 Upper GI bleed K92.2 Non-intractable vomiting R11.10 Unintentional weight loss R63.4 Acute metabolic encephalopathy G93.41 MSSA (methicillin susceptible Staphylococcus aureus) septicemia ([facility]) A41.01 Elevated C-reactive protein (CRP) R79.82 Bandemia D72.825 Allergy to multiple antibiotics Z88.1 Pyogenic inflammation of bone ([facility]) M86.9 Acute intractable headache R51.9 Pain: 10/10 [...] recommended at discharge. Treatment completed by:Chaitanya Pratt Customer Support Consultant ROBBIE MCKEON SANDWICH MAKER, M.A. [facility]SANDWICH MAKER Patient's operative note found from care everywhere from Dr.Gloria Elena Washington MD 02/22/2010 from [facility]. Implant is Baerveldt 250 tube shunt, on the left for open angle glaucoma. This is MRI compatible. MRI department will confirm this. Speech Language Pathology [facility] Speech Language Pathology Date: 07/04/2021 Patient Name: Meg Georges Date of : 1965 AGE: 56 y.o. Patient Not Available for Speech Therapy Due to: [] Testing [] Hemodialysis [] Cancelled by RN [] Surgery [] Intubation/Sedation/Pain Medication [] Medical instability [x] Other: Pt in pain. Asked ST to return later Next scheduled treatment: 518 in PM if able, 07/05 Completed by:Chaitanya Pratt Customer Support Consultant ROBBIE MCKEON, SANDWICH MAKER, M.A. [facility]SANDWICH MAK[facility] ENT/OTOLARYNGOLOGY PROGRESS NOTE REASON FOR CARE: AMS, [...] Dr. Chilo Mccoy and Dr. Angel Krueger [address] [facility] [address] OPTION 2: [facility] [address] [place] [address] Appointment scheduling: Other Useful Numbers: [facility]' ENT Nurse triage line [phone] (ENT-related questions or concerns, 8am-4pm, Friday through Friday) Gutierrez Sloan MD Pediatric Otolaryngology-Head and Neck Surgery [facility] Otolaryngology group Office ph# [phone] Also available in [employer]ision Images from the original note were not included. [facility] - Infectious diseases evaluation admission date 06/28/2021 [...] patient, RN, Dr. Robledo. Infection Control Recommendations Korbel Precautions Contact Isolation Antimicrobial Stewardship Recommendations Simplification of therapy Targeted therapy History of Present Illness: Initial history: Meg Georges is a 56 y.o.-year-old female presented to the ED for altered mental status. Patient is currently admitted under neurology service. Patient [place] [facility] after an episode of confusion overnight where she was found wandering [place] [facility]. She had CT head done at outside facility which did not show any acute changes, telestroke was consulted for the concern of confusion, they recommended transfer to [facility] for MRI of the brain. BC SA MSSA and LP neg CRP elevated and WBc up - creat normal 06/29 mentally recovered Neck pain x 1 mo Left sole callus was infected x 2 months ago [facility] She gets her IvIg through a periph [...] ESOPHAGOGASTRODUODENOSCOPY performed by Hari Wagner MD at [facility] Endoscopy Medications: lidocaine 1 patch TransDERmal [...] Friends and Family: Not on file Attends Restoration Services: Not on file Active Member of [...] following labs: CBC with Differential: Recent Labs 07/03/2143807/03/2143807/03/21163607/04/21 0316 WBC 13.6* -- -- 10.4 HGB 8.4* < > 7.8* 7.4* HCT 26.1* < > 24.2* 22.8* PLT 261 -- -- 231 LYMPHOPCT 18* -- -- 22* MONOPCT 5 -- -- 5 < > = values in this interval not displayed. BMP: Recent Labs 07/03/2143807/03/2143807/03/21 16307/04/21 0316 NA 134* -- -- 138 K [...] actual meaningcan be extrapolated by contextual diversion. REBEAK Orellana CNP Office: Perfect serve / office [phone] \ Images from the original note were [...] She was found wandering [place] of her [place] [facility]. She was admitted to the medicine team and was found to have sepsis as well as a GI bleed. Neurology was consulted due to altered mentation and headache. CT head was done and was unremarkable. CTA head neck unremarkable. EEG was normal. Spinal tap was done in the ED with CSF studies negative for meningitis or HOUSEKEEPING/LAUNDRY infection. For her headache she was placed [...] ESOPHAGOGASTRODUODENOSCOPY performed by Hari Wagner MD at [facility] Social History: Meg Georges reports [...] LABA1C 9.4 (H) 06/28/2021 LABMICR 7 06/25/2013 [id number] 06/28/2016 Diagnostic data reviewed: CT HEAD [...] IVIG sooner -CSF studies are negative for HOUSEKEEPING/LAUNDRY infection -Continue Depakene 250mg BID for headache -GI is following, patient is s/p EGD with findings suggestive of Alan esophagitis -ID is following; patient remains on antibiotics -Neurosurgery is following; possible myelogram -PT/OT -We will follow Please note that this note was generated using a voice recognition dictation software. Although every effort was made to ensure the accuracy of this automated milk drier, some errors in milk drier may have occurred. Images from the original note were not included. [facility] Internal Medicine Teaching Residency Program Inpatient Daily Progress Note __ Patient: Meg Georges Date of : 1965 Acct: [id number] Room: [address] [place] [address] Admit date: 06/28/2021 Today's date: 07/04/21 Number [...] neuropathy follows neurology. Present[place] [facility], found confused outside. Imaging negative. She complains [...] mL, PRN tiZANidine, 2 mg, Q8H PRN ojnkllewjx-hkvaazihjeove-mpkpgttz, 1 tablet, Q4H PRN hydrALAZINE, 10 mg, [...] controlled Elevated troponins: Downtrending likely type II UT -echo result pending Hypokalemia: K+ 2.9 today. [...] Argueta MD Internal Medicine Resident, PGY- 1 [facility]; [place], [place] 07/04/2021, 7:05 AM Associated attestation - [...] check back 07/04/21. Speech Language Pathology Facility/Department: [facility] 1C STEP DOWN Initial Speech/Language/Cognitive Assessment [...] and MSSA (methicillin susceptible Staphylococcus aureus) septicemia ([facility]) on their problem list. Date of Eval: [...] hyperlipidemia, sleep apnea, who was transferred from [facility], after she presented from her [place] [facility] for an episode of confusion overnight where she was found wandering [place] [facility]. She does not recall the episode very well, complaining of head pain, generalized weakness, weak voice. She had CT head done at outside facility which did not show any acute changes, telestroke was consulted for the concern for confusion, they recommended transfer to [place] for MRI of the brain. Patient has a complicated history over the last few years, has been seen by neurology at [facility] for worsening neuropathy symptoms, eventually diagnosed with CIDP and she is on IVIG infusions every 2 weeks although she has not had them in the last month or so since being in the [place] [facility]. 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 Recommendations: Requires SANDWICH MAKER Intervention: Yes D/C Recommendations: Ongoing speech therapy [...] were not included. [facility] - Infectious diseases evaluation admission date 06/28/2021 [...] the rise clayton[pite tx Infection Control Recommendations Korbel Precautions Contact Isolation Antimicrobial Stewardship Recommendations Simplification of therapy Targeted therapy History of Present Illness: Initial history: Meg Georges is a 56 y.o.-year-old female presented to the ED for altered mental status. Patient is currently admitted under neurology service. Patient presented [place] [facility] after an episode of confusion overnight where she was found wandering [place] [facility]. She had CT head done at outside facility which did not show any acute changes, telestroke was consulted for the concern of confusion, they recommended transfer to [facility] for MRI of the brain. BC SA MSSA and LP neg CRP elevated and WBc up - creat normal 06/29 mentally recovered Neck pain x 1 mo Left sole callus was infected x 2 months ago at the [facility] She gets her IvIg through a periph [...] Friends and Family: Not on file Attends Restoration Services: Not on file Active Member of [...] following labs: CBC with Differential: Recent Labs 07/02/2141807/02/21 1508 07/02/21 2042 07/03/21 0439 WBC 16.7* -- -- 13.6* HGB 9.0* < > 8.1* 8.4* HCT 28.2* < > 24.8* 26.1* PLT 299 -- -- 261 LYMPHOPCT 21* -- -- 18* MONOPCT 4 -- -- 5 < > = values in this interval not displayed. BMP: Recent Labs 07/02/21 04107/02/21 1015 07/02/21 1757 07/03/21 0439 NA 134* [...] Crowe MD Office: Perfect serve / office [phone] \ Echo completed in echo lab. Images [...] She was found wandering [place] of her [place] [facility]. She was admitted to the medicine team and was found to have sepsis as well as a GI bleed. Neurology was consulted due to altered mentation and headache. CT head was done and was unremarkable. CTA head neck unremarkable. EEG was normal. Spinal tap was done in the ED with CSF studies negative for meningitis or HOUSEKEEPING/LAUNDRY infection. For her headache she was placed [...] 1558 07/02/21 0419 07/02/21 0419 07/02/21 1508 07/02/212 07/03/21 0439 WBC 12.6* -- 16.7* -- [...] LABA1C 9.4 (H) 06/28/2021 LABMICR 7 06/25/2013 [id number] 06/28/2016 Diagnostic data reviewed: CT HEAD [...] CIDP Plan: -CSF studies are negative for HOUSEKEEPING/LAUNDRY infection -Patient headache is improved with Depacon; [...] to ensure the accuracy of this automated milk drier, some errors in milk drier may have occurred. Images from the original note were not included. [facility] Internal Medicine Teaching Residency Program Inpatient Daily Progress Note __ Patient: Meg Georges Date of : 1965 Acct: [id number] Room: 0146/0146-01 Admit date: 06/28/2021 Today's date: [...] neuropathy follows neurology. Present[place] [facility], found confused outside. Imaging negative. She complains [...] Daily PRN tiZANidine, 2 mg, Q8H PRN cznmfugfky-jnileoltaqtvu-cccyefyt, 1 tablet, Q4H PRN hydrALAZINE, 10 mg, [...] controlled Elevated troponins: Downtrending likely type II UT -echo result pending Hypokalemia: K+ 2.9 today. [...] Argueta MD Internal Medicine Resident, PGY- 1 [facility]; [place], [place] 07/03/2021, 5:58 AM Associated attestation - [...] were not included. [facility] - Infectious diseases evaluation admission date 06/28/2021 [...] scan to the neck Infection Control Recommendations Korbel Precautions Contact Isolation Antimicrobial Stewardship Recommendations Simplification of therapy Targeted therapy History of Present Illness: Initial history: Meg Georges is a 56 y.o.-year-old female presented to the ED for altered mental status. Patient is currently admitted under neurology service. Patient presented [place] [facility] after an episode of confusion overnight where she was found wandering [place] [facility]. She had CT head done at outside facility which did not show any acute changes, telestroke was consulted for the concern of confusion, they recommended transfer to [facility] for MRI of the brain. BC SA MSSA and LP neg CRP elevated and WBc up - creat normal 06/29 mentally recovered Neck pain x 1 mo Left sole callus was infected x 2 months ago at the [facility] She gets her IvIg through a periph [...] Friends and Family: Not on file Attends Restoration Services: Not on file Active Member of [...] Labs 07/01/21 0631 07/01/21 1558 07/01/218 07/02/21 041 WBC 12.6* -- -- 16.7* HGB 9.0* < > 8.8* 9.0* HCT 28.4* < > 27.2* 28.2* PLT 284 -- -- 299 LYMPHOPCT 17* -- -- 21* MONOPCT 6 -- -- 4 < > = values in this interval not displayed. BMP: Recent Labs 07/01/21 0631 07/01/21 0631 07/01/21 0845 07/01/21 1558 07/02/2141807/02/21 1015 NA 137 -- -- -- 134* [...] Crowe MD Office: Perfect serve / office [phone] \ Speech Language Pathology [facility] Speech Language Pathology Date: 07/02/2021 Patient [...] as appropriate Completed by: HOLGER Larson, M.S. [facility]SANDWICH MAKER NEUROLOGY INPATIENT PROGRESS NOTE 07/02/2021 Subjective: Meg Georges is a 56 y.o. female admitted on 06/28/2021 with Stupor [R40.1] Encephalitis [G04.90] Altered mental state [R41.82] Briefly, this is a 56 y.o. 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 She was [place] wandering [place] [facility] [place]. Admitted to medicine for sepsis work up, [...] 0-6 Units SubCUTAneous Nightly PRN Meds include: yteypovsbd-uxjmajuizntra-tnkucyam, hydrALAZINE, sodium chloride flush, sodium chloride, ondansetron [...] LABA1C 9.4 (H) 06/28/2021 LABMICR 7 06/25/2013 [id number] 06/28/2016 No results found for: PHENYTOIN, [...] confusion. She was found wandering [place] her [place] [facility] [place]. MSSA sepsis - on Abx per primary. [...] for EGD today. CSF studies negative for HOUSEKEEPING/LAUNDRY infection. Will continue to follow. Pawan Dutton DO 07/02/2021 3:45 PM Images from the original note were not included. [facility] Internal Medicine Teaching Residency Program Inpatient Daily Progress Note __ Patient: Meg Georges Date of : 1965 Acct: [id number] Room: [facility]6/0146-01 Admit date: 06/28/2021 Today's date: 07/02/21 Number [...] neuropathy follows neurology. Present[place] [facility], found confused outside. Imaging negative. She complains [...] at 07/01/21 0600 sodium chloride dextrose PRN Ddnygwbjntntktjzgtugv-gtxhgeqdeouup-xf ffeine, 1 tablet, Q4H PRN hydrALAZINE, 10 [...] Labs 07/01/21 0631 07/01/21 0631 07/01/21 0845 07/01/21155707/02/219 NA 137 -- -- -- 134* [...] N&V Elevated troponins: Downtrending likely type II UT -echo result pending Hypokalemia: K+ 2.2 today. Replace PO and IV and monitor Left Vocal cord paralysis: Ongoing x 1 month. ENT on board. Plan for injection laryngoplasty for voice/swallowing improvement at some point. Needs formal speech therapy/swallow study assessment as she is likely aspirating liquids Rufus Argueta MD Internal Medicine Resident, PGY- 1 [facility]; [place], [place] 07/02/2021, 7:16 AM Associated attestation - [...] history and exam findings with the resident/ ELECTRIC TRACK SWITCH MAINTAINER. I have seen and examined the patient and the coffey elements of the encounter have been performed by me. I agree with the assessment, plan and orders as documented by the resident or ELECTRIC TRACK SWITCH MAINTAINER with changes made to the note. Briefly, this is a 56 y.o. female with known dx of CIDP (on 2wkly IVIG), IDDM, HLD, sleep apnea was admitted on 06/28/2021 with episodic confusion; found [place] [facility] [place]. Her history is significant for CIDP for [...] 0-6 Units SubCUTAneous Nightly PRN Meds include: ftgopwgnvw-lyfebtaszpkgg-cqnvvbzy, hydrALAZINE, sodium chloride flush, sodium chloride, ondansetron [...] LABA1C 9.4 (H) 06/28/2021 LABMICR 7 06/25/2013 [id number] 374 06/28/2016 Impression and Plan: Ms. Meg [...] you. Jenifer Jewell MD 07/01/2021 2:[address] [facility] Neurology IN-PATIENT SERVICE [facility] Progress note Date: 07/01/2021 Patient name: Meg Georges Date of admission: 06/28/2021 11:59 AM Account: [id number] Date of : 1965 PCP: Neri Santa Sr, DO Room: [address] [place] [address] Code Status: Full Code Chief Complaint: Chief [...] panel 06/28/21 Total cholesterol 155, LDL 63 FSU8C-9.4 this admission CSF studies 06/28/21 Oligoclonal banding [...] # 2.14 1.0 - 4.8 k/uL Absolute [place] # 0.76 0.1 - 0.8 k/uL Absolute [...] 2.6 mg/dL Assessment : Primary Problem Sepsis ([facility]) Active Hospital Problems Diagnosis Date Noted Acute metabolic encephalopathy [G93.41] 06/30/2021 Priority: Medium MSSA (methicillin susceptible Staphylococcus aureus) septicemia ([facility]) [A41.01] 06/30/2021 Priority: Medium Upper GI bleed [K92.2] Priority: Medium Non-intractable vomiting [R11.10] Priority: Medium Unintentional weight loss [R63.4] Priority: Medium Sepsis ([facility]) [A41.9] 06/29/2021 Priority: Medium Bacteremia [R78.81] 06/29/2021 Priority: Medium Hypothyroidism [E03.9] 06/29/2021 Priority: Medium Hypokalemia [E87.6] 06/29/2021 Priority: Medium Type 2 diabetes mellitus with diabetic polyneuropathy ([facility]) [E11.42] 06/29/2021 Priority: Medium Primary hypertension [I10] 06/29/2021 Priority: Medium Encephalopathy [G93.40] Priority: Medium CIDP (chronic inflammatory demyelinating polyneuropathy) ([facility]) [G61.81] Priority: Medium Altered mental state [R41.82] 06/28/2021 Priority: Medium Encephalitis [G04.90] Priority: Medium Plan: Headache -2 grams IV mag total -Depacon 500mg IV once for headache -can continue depacon 250mg Q8hr if initial bolus improves her headache 10 this AM History of CIDP -Recieves IVIG [...] history and exam findings with the resident/ ELECTRIC TRACK SWITCH MAINTAINER. I have seen and examined the patient and the coffey elements of the encounter have been performed by me. I agree with the assessment, plan and orders as documented by the resident or ELECTRIC TRACK SWITCH MAINTAINER with changes made to the note. Briefly, this is a 56 y.o. female with known dx of CIDP (on 2wkly IVIG), IDDM, HLD, sleep apnea was admitted on 06/28/2021 with episodic confusion; found wandering [place]. Her history is significant for CIDP for [...] SubCUTAneous Nightly PRN Meds include: PRN Medications cruywpuyvg-kmyavrrqmdxka-ucrgjdsb, hydrALAZINE, sodium chloride flush, sodium chloride, ondansetron [...] bilaterally. Data: Lab Results: CBC: Recent Labs 06/29/2135006/29/2135006/30/21 0909 06/30/219 07/01/21 0631 WBC 15.0* -- [...] LABA1C 9.4 (H) 06/28/2021 LABMICR 7 06/25/2013 [id number] 374 06/28/2016 Impression and Plan: Ms. Meg [...] from the original note were not included. [facility] Internal Medicine Teaching Residency Program Inpatient Daily Progress Note __ Patient: Meg Georges Date of : 1965 Acct: [id number] Room: [address] [place] [address] Admit date: 06/28/2021 Today's date: 07/01/21 Number [...] neuropathy follows neurology. Presented [place] [facility], found confused outside. Imaging negative. She complains [...] at 07/01/21 0600 sodium chloride dextrose PRN Sqvalnmfwuotibigztcdo-drdgohsestqye-pg ffeine, 1 tablet, Q4H PRN hydrALAZINE, 10 [...] N&V Elevated troponins: Downtrending likely type II UT -echo result pending Hypokalemia: K+ 2.2 today. Replace PO and IV and monitor Rufus Argueta MD Internal Medicine Resident, PGY- 1 [facility]; [place], [place] 07/01/2021, 7:33 AM Associated attestation - [...] were not included. [facility] - Infectious diseases evaluation Progress Note admission [...] object in her eyes Infection Control Recommendations Korbel Precautions Antimicrobial Stewardship Recommendations Simplification of therapy Targeted therapy History of Present Illness: INITIAL HISTORY: Meg Georges is a 56 y.o.-year-old female who presented to the ED because of altered mental status. Patient is currently admitted under neurology service. Patient presented from a [place] [facility] after an episode of confusion overnight where she was found wandering [place] her [place] [facility] [place]. She had CT head done at outside facility which did not show any acute changes. Telestroke was consulted because of the concern with confusion, they recommended transfer to [facility] for MRI of the brain. BC: Staph A (MSSA) and LP neg CRP elevated and WBc up - creat normal 06/29 mentally recovered Neck pain x 1 mo Left sole callus was infected x 2 months ago at the [facility] She gets her IvIg through a peripheral [...] Types: Cigarettes Quit date: 10/06/1995 Years since quittin. Smokeless tobacco: Never Used Substance and Sexual [...] Friends and Family: Not on file Attends Restoration Services: Not on file Active Member of [...] Differential: Recent Labs 06/29/21 0351 06/30/21 0909 05212807/01/21 0631 WBC 15.0* -- -- 12.6* HGB [...] Stokes MD Office: Perfect serve / office [phone] [facility] Progress Note Meg Georges [...] mg/hr (07/01/21 0253) sodium chloride Stopped (07/01/21 0427) sodium chloride dextrose PRN Meds:jhabgjpntk-zhyhixlgnnape-nehhyfos , hydrALAZINE, sodium chloride flush, sodium chloride, [...] results for input(s): LABIRON, TIBC, IRON, FERRITIN, [id number], FOLATE, OCCULTBLD in the last 72 hours. [...] head and neck. ENDOSCOPY Principal Problem: Sepsis ([facility]) Active Problems: Altered mental state Encephalitis Encephalopathy CIDP (chronic inflammatory demyelinating polyneuropathy) ([facility]) Bacteremia Hypothyroidism Hypokalemia Type 2 diabetes mellitus with diabetic polyneuropathy ([facility]) Primary hypertension Upper GI bleed Non-intractable vomiting Unintentional weight loss Acute metabolic encephalopathy MSSA (methicillin susceptible Staphylococcus aureus) septicemia ([facility]) Resolved Problems: * No resolved hospital problems. * GI Assessment: 56-year-old female with a past medical history of uncontrolled insulin-dependent diabetes (Hgb A1c-9.4), hypothyroidism, chronic inflammatory demyelinating polyneuropathy on IVIG, MGUS neuropathy, and GERD who presented [place] [facility] after being found outside confused. She was [...] of your patient. Rosalinda Alvarado APRN - ELECTRIC TRACK SWITCH MAINTAINER on 07/01/2021 at 6:50 AM [facility] Please note that this note was generated using a voice recognition dictation software. Although every effort was made to ensure the accuracy of this automated milk drier, some errors in milk drier may have occurred. Associated attestation - Hari Wagner MD - 07/01/2021 11:00 AM EDT Attending Physician Statement I have seen, examined and discussed the care of Meg Georges, including pertinent history and exam findings, with the ELECTRIC TRACK SWITCH MAINTAINER. I agree with the assessment, plan and orders as documented by the ELECTRIC TRACK SWITCH MAINTAINER. SPIRITUAL CARE DEPARTMENT - [facility] PROGRESS NOTE Shift date: 06/30/21 Shift day: Friday Shift # 2 Room # 0146/0146-01 Name: Meg Georges Age: 56 y.o. Gender: female Christianity: Cheondoism Place of sabianism: Referral: Routine Visit Admit Date & Time: 06/28/2021 11:59 AM PATIENT/EVENT DESCRIPTION: Meg Georges is a 56 y.o. female SPIRITUAL ASSESSMENT/INTERVENTION: Patient appeared to welcome cable tender presence. Patient engaged in conversation and stated she had lost her voice. Custodial Operations Manager was a ministry of presence and offered prayer for spiritual comfort/support. Patient accepted prayer and expressed gratitude for visit. SPIRITUAL CARE FOLLOW-UP PLAN: Chaplains will remain available to offer spiritual and emotional support as needed. . Spiritual Care Department [facility] [phone] Images from the original note were not included. [facility] Internal Medicine Teaching Residency Program Inpatient Daily Progress Note __ Patient: Meg Georges Date of : 1965 Acct: [id number] Room: 0146/0146-01 Admit date: 06/28/2021 Today's date: [...] neuropathy follows neurology. Presented [place] [facility], found confused outside. Imaging negative. She complains [...] Stopped (06/30/21 0408) sodium chloride dextrose PRN Qxrnnvxqsbdzwyuijkver-ngnypetilicfo-ul ffeine, 1 tablet, Q4H PRN hydrALAZINE, 10 [...] N&V Elevated troponins: Downtrending likely type II UT -echo result pending Hypokalemia: Labs pending Jonathan Steve MD Internal Medicine Resident, PGY- 2 [facility]; [place], [place] 06/30/2021, 12:56 PM Associated attestation - [...] with episodic confusion; found wandering [place] [facility] [place]. Her history is significant for CIDP for [...] 0-6 Units SubCUTAneous Nightly PRN Meds include: ianfqdipyt-ojtrazobenpyw-wnwtavpy, hydrALAZINE, sodium chloride flush, sodium chloride, ondansetron [...] LABA1C 9.4 (H) 06/28/2021 LABMICR 7 06/25/2013 [id number] 374 06/28/2016 Impression and Plan: Ms. Meg [...] 06/30/2021 11:45 AM Speech Language Pathology Facility/Department: [facility] 1C STEP DOWN Initial Speech/Language/Cognitive Assessment NAME: Meg Georges : 1965 ADMISSION DATE: 06/28/2021 ADMITTING DIAGNOSIS: has Cellulitis of left finger; Altered mental state; Encephalitis; Encephalopathy; CIDP (chronic inflammatory demyelinating polyneuropathy) (HCC); Sepsis (HCC); Bacteremia; Hypothyroidism; Hypokalemia; Type 2 diabetes mellitus with diabetic polyneuropathy (HCC); and Primary hypertension on their problem list. DATE ONSET: 06/28/2021 Date of Eval: 06/30/2021 Evaluating Therapist: Leeann Elder, SANDWICH MAKER RECENT RESULTS CT OF HEAD/MRI: CT Head [...] chronic IVIG every 2 weeks, transferred from [facility] for further neurological evaluation. She was allegedly [...] any ENT evaluation Diagnosis: Dysphonia Recommendations: Requires SANDWICH MAKER Intervention: Yes D/C Recommendations: To be determined [...] were not included. [facility] - Infectious diseases evaluation Progress Note admission [...] object in her eyes Infection Control Recommendations Korbel Precautions Antimicrobial Stewardship Recommendations Simplification of therapy Targeted therapy History of Present Illness: INITIAL HISTORY: Meg Georges is a 56 y.o.-year-old female who presented to the ED because of altered mental status. Patient is currently admitted under neurology service. Patient presented [place] [facility] after an episode of confusion overnight where she was found wandering [place] [facility] [place]. She had CT head done at outside facility which did not show any acute changes. Telestroke was consulted because of the concern with confusion, they recommended transfer to [facility] for MRI of the brain. BC: Staph A (MSSA) and LP neg CRP elevated and WBc up - creat normal 06/29 mentally recovered Neck pain x 1 mo Left sole callus was infected x 2 months ago at the [facility] She gets her IvIg through a peripheral [...] Friends and Family: Not on file Attends Restoration Services: Not on file Active Member of [...] BMP: Recent Labs 06/28/21 0410 06/28/21 0410 06/28/212 06/29/21 0351 NA 138 < > 135 137 K 3.4* < > 4.0 3.2* CL 95* < > 97* 97* CO2 27 < > 23 25 BUN 25* < > 18 18 CREATININE 0.89 < > 0.70 0.76 MG 1.9 -- -- 2.3 < > = values in this interval not displayed. Hepatic Function Panel: Recent Labs 06/28/21 0410 06/28/21 0410 06/28/212 06/28/21 1417 PROT 8.5* -- 8.0 -- LABALBU [...] Stokes MD Office: Perfect serve / office [phone] Dr Crowe phoned marine underwriter with new order d/c MRI d/t unknown foreign object in patients eyes. New order for bone scan for cervical spine,look for osteomyelitis. EEG completed Speech Language Pathology [facility] Speech Language Pathology Date: 06/29/2021 Patient [...] by: Chaitanya Pratt Graduate Clinician ROBBIE MCKEON, SANDWICH MAKER, M.A. [facility]SANDWICH MAKER [facility] Pharmacokinetic Monitoring Service - Vancomycin [...] Thank you for the consult, David Donnelly PharmCarrolD., [place] 06/29/2021 9:15 AM Neurology Resident Progress [...] Gastrointestinal: No nausea, vomiting, diarrhea. Genitourinary: No [employer] Work Phone: 07-10-2021 Hospital Discharge instructions Sebas Arnold RN - 07/10/2021 7:52 AM EDT Continuity of Care Form Patient Name: Meg Georges : 1965 Admit date: 06/28/2021 Discharge date: 07/10/2021 Code Status Order: Full Code Advance Directives: Admitting Physician: Silver Carmona MD PCP: Neri Santa Sr, DO Discharging Nurse: Thierry Discharging Hospital Unit/Room#: 0146/0146-01 Discharging Unit Phone Number: [phone] Emergency Contact: Extended Emergency Contact Information Primary Emergency Contact: Hina Thomas [facility] Mobile Relation: Brother/Sister Past Surgical History: Past Surgical History: Procedure Laterality Date ACHILLES TENDON SURGERY left BACK SURGERY L 4 and 5 1995, 1996 CERVICAL FUSION N/A 07/06/2021 POSTERIOR CERVICAL C1 LAMINECTOMY. LEFT C2 RHIZOTOMY, EXPLORATION OF EPIDURAL PHLEGMON performed by Alisia Cevallos DO at [facility] OR CHOLECYSTECTOMY EYE SURGERY [address] 250 shunt for open angle glaucoma. MRI compatible- device is all silicone LAMINECTOMY 07/06/2021 Posterior C1, LEFT C2 RHIZOTOMY, EXPLORATION OF EPIDURAL PHLEGMON SHOULDER SURGERY right UPPER GASTROINTESTINAL ENDOSCOPY N/A 07/02/2021 EGD ESOPHAGOGASTRODUODENOSCOPY performed by Hari Wagner MD at [facility] Endoscopy Immunization History: There is no immunization history on file for this patient. Active Problems: Patient Active Problem List Diagnosis Code Cellulitis of left finger L03.012 Altered mental state R41.82 Encephalitis G04.90 Encephalopathy G93.40 CIDP (chronic inflammatory demyelinating polyneuropathy) ([facility]) G61.81 Sepsis ([facility]) A41.9 Bacteremia R78.81 Hypothyroidism E03.9 Hypokalemia E87.6 Type 2 diabetes mellitus with diabetic polyneuropathy ([facility]) E11.42 Primary hypertension I10 Upper GI bleed K92.2 Non-intractable vomiting R11.10 Unintentional weight loss R63.4 Acute metabolic encephalopathy G93.41 MSSA (methicillin susceptible Staphylococcus aureus) septicemia ([facility]) A41.01 CRP elevated R79.82 Bandemia D72.825 Allergy to multiple antibiotics Z88.1 Pyogenic inflammation of bone ([facility]) M86.9 Acute intractable headache R51.9 Acute osteomyelitis of cervical spine ([facility]) M46.22 Abscess in epidural space of cervical [...] - PICC - site {Anatomy; iv placement site:07982}, insertion date: 07/10/2021 Nursing Mobility/ADLs: Walking Assisted Transfer Assisted Bathing Assisted Dressing Assisted Toileting Assisted Feeding Assisted Biodiesel Engine Specialist Assisted Med Delivery crushed Wound Care Documentation [...] 9447.3 [P.O.:300; I.V.:7386.3; IV Piggyback:1761] Out: 1944 [Urine:1939; Drains:5] Safety Concerns: History of Falls (last 30 days) and At Risk for Falls Impairments/Disabilities: Speech Nutrition Therapy: Current Nutrition Therapy: - Oral Diet: General and Dysphagia 2 mechanically altered Routes of Feeding: Oral Liquids: [place] Thick Liquids Daily Fluid Restriction: no Last [...] DME order): wheelchair and walker Other Treatments: [facility] Assessment Patient's personal belongings (please select all that are sent with patient): Trey RN SIGNATURE: CASE MANAGEMENT/SOCIAL WORK SECTION Inpatient Status Date: Readmission Risk Assessment Score: Readmission Risk Risk of Unplanned Readmission: 23 Discharging to Facility/ Agency [facility] Available [facility] Address [address] [place] [address] Contact Information [phone] Dialysis Facility (if applicable) Name: Address: Dialysis Schedule: Phone: Fax: Sign Builder Supervisor/Health Center Associate signature: PHYSICIAN SECTION Prognosis: Good Condition at [...] cervical collar instructions as per neurosurgery Dr Cevallos Continue antibiotics and follow-up with infectious disease Dr. Crowe Blood sugar checks Premeal's at bedtime and follow-up with SNF physician PT and OT eval and treat Physician Certification: I certify the above information and transfer of Meg Georges is necessary for the continuing treatment of the diagnosis listed and that she requires [facility] Facility for less 30 days. Update Admission [...] urinary retention documented in this encounter [employer] Phone: 06-28-2021 History of Present illness Narrative Updated sister, Hina. States will be in. This nurse called and spoke with Rachel (nurse) at [facility] to get an updated med list. Rachel [...] she was vomiting. documented in this encounter [employer] Phone: 05-11-2021 History of Present illness Narrative The patient tolerated the infusion well without any complications. documented in this encounter [facility] 05-01-2021 Instructions Tia Baugh PA-C - [...] sent through Care Everywhere.Staph Infection: General Info (Moldovan)Moise (Moldovan)documented in this encounter [facility] 05-01-2021 History of Present illness Narrative PATIENT NAME: Meg Joaquin [facility] URGENT CARE: [address] [facility] [id number] DATE OF VISIT: 05/01/2021 DATE OF : 1965 SS: [id number] PROVIDER: SUBJECTIVE 56 y.o. female to the [...] without toes, left 01/26/2019 Asthma Atherosclerosis of [place] arteries of left leg with ulceration of [...] 11/11/2017 Corns and callosities 03/13/2016 Diabetes mellitus ([facility]) Dystrophic nail 11/15/2016 Foot cramps Foot ulcer (HCC) 02/25/2019 OTHER PART OF FOOT Fracture of third toe, left, closed 02/15/2016 Fungal toenail infection 11/15/2016 GERD (gastroesophageal reflux disease) Glaucoma both eyes Heart murmur High cholesterol 03/27/2015 Hyperlipidemia Hypertension Ingrown toenail 10/30/2015 Leg cramps Metatarsalgia of both feet 10/07/2016 Neuropathy Non-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 ([facility]) 09/06/2016 Non-pressure chronic ulcer of left lower [...] right great toe 09/19/2017 Onychomycosis 12/13/2015 Osteomyelitis ([facility]) 04/23/2019 Peripheral vascular disease ([facility]) 08/17/2019 Pre-ulcerative calluses 08/13/2018 Right foot ulcer ([facility]) 09/26/2014 Shortness of breath Sprain of calcaneofibular [...] Type 2 diabetes mellitus with foot ulcer ([facility]) 06/19/2016 Type 2 diabetes, uncontrolled, with peripheral circulatory disorder ([facility]) 03/28/2017 Xerosis cutis 01/17/2016 Family History Problem [...] for this visit. -Aerobic culture of the trzgjhwx-dpat-sot from the small finger of the right hand -Doxycycline 100 mg twice daily for 7 days -Mupirocin ointment to be applied 3 times daily to the affected area and a light layer -I have contacted Dr. Stanley's office in [place] and hoping to schedule a follow-up visit with Dr. Stanley for further evaluation of the patient's hand. Tia Baugh 05/01/2021 documented in this encounter [facility] 04-17-2021 History of Present illness Narrative [...] of her wounds documented in this encounter [facility] 04-12-2021 Note Procedure date: 04/12. Intraocular injection: 1.25 mg Bevacizumab (AVASTIN) 2.5mg/0.1 ML syringe [facility]: 59168-269-92, Lot: [id number], Expiration date: 06/10/2021 Route: Intravitreal, Site: Right Eye Notes Bevacizumab (Avastin) Intraocular Injection Right Eye - OPHTHALMOLOGY PROCEDURE NOTE PROCEDURE PERFORMED BY: Sharon Hernandez MD SUPERVISOR PLATE PASTING(S): None ATTENDING: Sharon Hernandez MD PROCEDURE DATE: 04/12/2021 PROCEDURE START TIME: 10:47 AM INDICATIONS: Treatment of ICD-10-CM 1. Diabetic macular edema E11.311 [place] BEVACIZUMAB SOLN - OD EYE: Right (OD) [...] THIS PROCEDURE REQUIRE A UNIVERSAL PROTOCOL? Yes. Korbel Protocol is required. Pre-procedure verification was completed. [...] saline and an antibiotic drop was instilled. [facility] 04-05-2021 Note Procedure date: 04/05. Intraocular injection: 1.25 mg Bevacizumab (AVASTIN) 2.5mg/0.1 ML syringe [facility]: 32256-324-17, Lot: [id number], Expiration date: 05/01/2021 Route: Intravitreal, Site: Left Eye Notes Bevacizumab (Avastin) Intraocular Injection Left Eye - OPHTHALMOLOGY PROCEDURE NOTE PROCEDURE PERFORMED BY: Sharon Hernandez MD SUPERVISOR PLATE PASTING(S): None ATTENDING: Sharon Hernandez MD PROCEDURE DATE: 04/05/2021 PROCEDURE START TIME: 11:15 AM INDICATIONS: Treatment of ICD-10-CM 1. 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 Yes. Korbel Protocol is required. Pre-procedure verification was completed. [...] saline and an antibiotic drop was instilled. [facility] 03-27-2021 History of Present illness Narrative [...] and pain-free. Assessment plan: Patient is a mary 56-year-old type II diabetic female with substantially [...] of her wounds documented in this encounter [facility] 02-20-2021 Instructions Jef Sierra Jr., DPM - 02/20/2021 10:07 AM EST Continue topical antibiotic ointment and bandaid with padding. documented in this encounter [facility] 02-20-2021 History of Present illness Narrative HPI Chief Complaint Patient presents with Follow-up L foot ulcer - doing better Patient is a mary 55-year-old female who comes in today with a plantar left 1st MPJ ulceration, states that she has been doing well but the wound is continued to the bottom of her foot. Past Medical History: Diagnosis Date Abscess of foot without toes, left 01/26/2019 Asthma Atherosclerosis of [place] arteries of left leg with ulceration of [...] 11/11/2017 Corns and callosities 03/13/2016 Diabetes mellitus ([facility]) Dystrophic nail 11/15/2016 Foot cramps Foot ulcer ([facility]) 02/25/2019 OTHER PART OF FOOT Fracture of [...] with muscle involvement without evidence of necrosis ([facility]) 03/14/2017 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) 08/14/2016 Nondisplaced fracture of proximal phalanx of right great toe 09/19/2017 Onychomycosis 12/13/2015 Osteomyelitis ([facility]) 04/23/2019 Peripheral vascular disease ([facility]) 08/17/2019 Pre-ulcerative calluses 08/13/2018 Right foot ulcer ([facility]) 09/26/2014 Shortness of breath Sprain of calcaneofibular ligament of right ankle 12/05/2017 Swelling of both ankles Swelling of both lower extremities Thyroid disorder 03/27/2015 Tinea unguium 08/13/2018 Traumatic closed fracture of phalanx of foot with minimal displacement 08/11/2017 Traumatic closed nondisplaced fracture of phalanx of right foot with delayed healing 09/08/2017 Type 2 diabetes mellitus with diabetic neuropathy ([facility]) 11/11/2017 Diabetic autonomic (poly) neuropathy Type 2 diabetes mellitus with foot ulcer ([facility]) 06/19/2016 Type 2 diabetes, uncontrolled, with peripheral circulatory disorder ([facility]) 03/28/2017 Xerosis cutis 01/17/2016 Past Surgical History: [...] [facility]Follow-up [facility] 2 weeks to review. documented in this encounter [facility] 02-14-2021 Note Procedure date: 01/18. Right [...] Recommendation for management is to continue treatment. [facility] 02-14-2021 Note Procedure date: 01/18. Intraocular injection: 1.25 mg Bevacizumab (AVASTIN) 2.5mg/0.1 ML syringe [facility]: [id number], Lot: [id number], Expiration date: 03/07/2021 Route: Intravitreal, Site: Right Eye Notes Bevacizumab (Avastin) Intraocular Injection Right Eye - OPHTHALMOLOGY PROCEDURE NOTE PROCEDURE PERFORMED BY: Sharon Hernandez MD SUPERVISOR PLATE PASTING(S): None ATTENDING: Sharon Hernandez MD PROCEDURE DATE: 02/14/2021 PROCEDURE START TIME: 10:25 AM INDICATIONS: Treatment of ICD-10-CM 1. Diabetic macular edema E11.311 [place] BEVACIZUMAB SOLN - OD EYE: Right (OD) [...] THIS PROCEDURE REQUIRE A UNIVERSAL PROTOCOL? Yes. Korbel Protocol is required. Pre-procedure verification was completed. [...] saline and an antibiotic drop was instilled. [facility] 02-12-2021 Note Procedure date: 01/18. Intraocular injection: 1.25 mg Bevacizumab (AVASTIN) 2.5mg/0.1 ML syringe [facility]: 77507-987-74, Lot: [id number], Expiration date: 03/01/2021 Route: Intravitreal, Site: Left Eye Notes Bevacizumab (Avastin) Intraocular Injection Left Eye - OPHTHALMOLOGY PROCEDURE NOTE PROCEDURE PERFORMED BY: Sharon Hernandez MD SUPERVISOR PLATE PASTING(S): None ATTENDING: Sharon Hernandez MD PROCEDURE DATE: 02/12/2021 PROCEDURE START TIME: 10:46 AM INDICATIONS: Treatment of ICD-10-CM 1. Diabetic macular edema E11.311 bevacizumab 1.25 MG/0.05 ML Solution IL BEVACIZUMAB SOLN - OS IL BEVACIZUMAB SOLN - OS EYE: Left (OS) [...] THIS PROCEDURE REQUIRE A UNIVERSAL PROTOCOL? Yes. Korbel Protocol is required. Pre-procedure verification was completed. [...] saline and an antibiotic drop was instilled. [facility] 2021 History of Present illness Narrative [...] without toes, left 01/26/2019 Asthma Atherosclerosis of [place] arteries of left leg with ulceration of [...] of left ankle with fat layer exposed ([facility]) 09/06/2016 Non-pressure chronic ulcer of left lower leg with fat layer exposed ([facility]) 03/28/2017 Non-pressure chronic ulcer of other part of left foot with fat layer exposed ([facility]) 08/14/2017 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 involvement without evidence of necrosis ([facility]) 03/14/2017 Non-pressure chronic ulcer of right ankle limited to breakdown of skin ([facility]) 08/14/2016 Nondisplaced fracture of proximal phalanx of right great toe 09/19/2017 Onychomycosis 12/13/2015 Osteomyelitis ([facility]) 04/23/2019 Peripheral vascular disease ([facility]) 08/17/2019 Pre-ulcerative calluses 08/13/2018 Right foot ulcer ([facility]) 09/26/2014 Shortness of breath Sprain of calcaneofibular ligament of right ankle 12/05/2017 Swelling of both ankles Swelling of both lower extremities Thyroid disorder 03/27/2015 Tinea unguium 08/13/2018 Traumatic closed fracture of phalanx of foot with minimal displacement 08/11/2017 Traumatic closed nondisplaced fracture of phalanx of right foot with delayed healing 09/08/2017 Type 2 diabetes mellitus with diabetic neuropathy ([facility]) 11/11/2017 Diabetic autonomic (poly) neuropathy Type 2 diabetes mellitus with foot ulcer ([facility]) 06/19/2016 Type 2 diabetes, uncontrolled, with peripheral circulatory disorder ([facility]) 03/28/2017 Xerosis cutis 01/17/2016 Past Surgical History: [...] weeks to review. documented in this encounter [facility] 01-30-2021 History of Present illness Narrative [...] without toes, left 01/26/2019 Asthma Atherosclerosis [place] arteries of left leg with ulceration of [...] ulcer of great toe of left foot ([facility]) 03/27/2015 Closed displaced fracture of first metatarsal bone 02/01/2016 Closed displaced fracture of first metatarsal bone of left foot with routine healing 04/17/2015 Contusion of great toe, right 11/04/2016 Contusion of right foot 11/11/2017 Corns and callosities 03/13/2016 Diabetes mellitus ([facility]) Dystrophic nail 11/15/2016 Foot cramps Foot ulcer ([facility]) 02/25/2019 OTHER PART OF FOOT Fracture of third toe, left, closed 02/15/2016 Fungal toenail infection 11/15/2016 GERD (gastroesophageal reflux disease) Glaucoma both eyes Heart murmur High cholesterol 03/27/2015 Hyperlipidemia Hypertension Ingrown toenail 10/30/2015 Leg cramps Metatarsalgia of both feet 10/07/2016 Neuropathy Non-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 ([facility]) 09/06/2016 Non-pressure chronic ulcer of left lower leg with fat layer exposed ([facility]) 03/28/2017 Non-pressure chronic ulcer of other part of left foot with fat layer exposed ([facility]) 08/14/2017 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 involvement without evidence of necrosis ([facility]) 03/14/2017 Non-pressure chronic ulcer of right ankle limited to breakdown of skin ([facility]) 08/14/2016 Nondisplaced fracture of proximal phalanx of right great toe 09/19/2017 Onychomycosis 12/13/2015 Osteomyelitis ([facility]) 04/23/2019 Peripheral vascular disease ([facility]) 08/17/2019 Pre-ulcerative calluses 08/13/2018 Right foot ulcer ([facility]) 09/26/2014 Shortness of breath Sprain of calcaneofibular [...] 2 diabetes, uncontrolled, with peripheral circulatory disorder ([facility]) 03/28/2017 Xerosis cutis 01/17/2016 Past Surgical History: [...] clean dry and intact transtion back to [facility] with Peg[facility]ist -Follow-up in 1 weeks to review. documented in this encounter [facility] 01-30-2021 Instructions Jef Sierra Jr., DPM - 01/30/2021 10:50 AM EST Continue ashu at home documented in this encounter [facility] 01-24-2021 History of Present illness Narrative [...] without toes, left 01/26/2019 Asthma Atherosclerosis [place] arteries of left leg with ulceration of other part of foot ([facility]) 03/14/2017 Back problem Bilateral foot-drop 02/01/2016 Callus of foot 03/16/2019 Cataract Cellulitis and abscess of foot excluding toe 09/26/2014 Cellulitis of great toe, right 10/30/2015 Cellulitis of left foot 08/14/2017 Cellulitis of left lower limb 09/01/2015 Cellulitis of right toe 11/15/2015 Cellulitis of second toe of right foot 11/15/2016 Chronic ulcer of great toe of left foot ([facility]) 03/27/2015 Closed displaced fracture of first metatarsal bone 02/01/2016 Closed displaced fracture of first metatarsal bone of left foot with routine healing 04/17/2015 Contusion of great toe, right 11/04/2016 Contusion of right foot 11/11/2017 Corns and callosities 03/13/2016 Diabetes mellitus ([facility]) Dystrophic nail 11/15/2016 Foot cramps Foot ulcer ([facility]) 02/25/2019 OTHER PART OF FOOT Fracture of [...] left lower leg with fat layer exposed ([facility]) 03/28/2017 Non-pressure chronic ulcer of other part of left foot with fat layer exposed ([facility]) 08/14/2017 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 involvement without evidence of necrosis ([facility]) 03/14/2017 Non-pressure chronic ulcer of right ankle limited to breakdown of skin ([facility]) 08/14/2016 Nondisplaced fracture of proximal phalanx of right great toe 09/19/2017 Onychomycosis 12/13/2015 Osteomyelitis ([facility]) 04/23/2019 Peripheral vascular disease ([facility]) 08/17/2019 Pre-ulcerative calluses 08/13/2018 Right foot ulcer ([facility]) 09/26/2014 Shortness of breath Sprain of calcaneofibular ligament of right ankle 12/05/2017 Swelling of both ankles Swelling of both lower extremities Thyroid disorder 03/27/2015 Tinea unguium 08/13/2018 Traumatic closed fracture of phalanx of foot with minimal displacement 08/11/2017 Traumatic closed nondisplaced fracture of phalanx of right foot with delayed healing 09/08/2017 Type 2 diabetes mellitus with diabetic neuropathy ([facility]) 11/11/2017 Diabetic autonomic (poly) neuropathy Type 2 diabetes mellitus with foot ulcer ([facility]) 06/19/2016 Type 2 diabetes, uncontrolled, with peripheral circulatory disorder ([facility]) 03/28/2017 Xerosis cutis 01/17/2016 Past Surgical History: [...] weeks to review. documented in this encounter [facility] 01-16-2021 History of Present illness Narrative [...] without toes, left 01/26/2019 Asthma Atherosclerosis [place] arteries of left leg with ulceration of other part of foot ([facility]) 03/14/2017 Back problem Bilateral foot-drop 02/01/2016 Callus of foot 03/16/2019 Cataract Cellulitis and abscess of foot excluding toe 09/26/2014 Cellulitis of great toe, right 10/30/2015 Cellulitis of left foot 08/14/2017 Cellulitis of left lower limb 09/01/2015 Cellulitis of right toe 11/15/2015 Cellulitis of second toe of right foot 11/15/2016 Chronic ulcer of great toe of left foot ([facility]) 03/27/2015 Closed displaced fracture of first metatarsal bone 02/01/2016 Closed displaced fracture of first metatarsal bone of left foot with routine healing 04/17/2015 Contusion of great toe, right 11/04/2016 Contusion of right foot 11/11/2017 Corns and callosities 03/13/2016 Diabetes mellitus ([facility]) Dystrophic nail 11/15/2016 Foot cramps Foot ulcer ([facility]) 02/25/2019 OTHER PART OF FOOT Fracture of third toe, left, closed 02/15/2016 Fungal toenail infection 11/15/2016 GERD (gastroesophageal reflux disease) Glaucoma both eyes Heart murmur High cholesterol 03/27/2015 Hyperlipidemia Hypertension Ingrown toenail 10/30/2015 Leg cramps Metatarsalgia of both feet 10/07/2016 Neuropathy Non-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 ([facility]) 09/06/2016 Non-pressure chronic ulcer of left lower leg with fat layer exposed ([facility]) 03/28/2017 Non-pressure chronic ulcer of other part of left foot with fat layer exposed ([facility]) 08/14/2017 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 involvement without evidence of necrosis ([facility]) 03/14/2017 Non-pressure chronic ulcer of right ankle limited to breakdown of skin ([facility]) 08/14/2016 Nondisplaced fracture of proximal phalanx of right great toe 09/19/2017 Onychomycosis 12/13/2015 Osteomyelitis ([facility]) 04/23/2019 Peripheral vascular disease ([facility]) 08/17/2019 Pre-ulcerative calluses 08/13/2018 Right foot ulcer [...] 2 diabetes, uncontrolled, with peripheral circulatory disorder ([facility]) 03/28/2017 Xerosis cutis 01/17/2016 Past Surgical History: [...] weeks to review. documented in this encounter [facility] 01-16-2021 Instructions Jef Sierra Jr., DPM - 01/16/2021 11:27 AM EST Keep bandage clean dry and intat documented in this encounter [facility] 01-09-2021 History of Present illness Narrative [...] without toes, left 01/26/2019 Asthma Atherosclerosis [place] arteries of left leg with ulceration of other part of foot ([facility]) 03/14/2017 Back problem Bilateral foot-drop 02/01/2016 Callus [...] 11/11/2017 Corns and callosities 03/13/2016 Diabetes mellitus ([facility]) Dystrophic nail 11/15/2016 Foot cramps Foot ulcer [...] of left foot with fat layer exposed ([facility]) 08/14/2017 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 involvement without evidence of necrosis ([facility]) 03/14/2017 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) 08/14/2016 Nondisplaced fracture of proximal phalanx of right great toe 09/19/2017 Onychomycosis 12/13/2015 Osteomyelitis ([facility]) 04/23/2019 Peripheral vascular disease ([facility]) 08/17/2019 Pre-ulcerative calluses 08/13/2018 Right foot ulcer ([facility]) 09/26/2014 Shortness of breath Sprain of calcaneofibular ligament of right ankle 12/05/2017 Swelling of both ankles Swelling of both lower extremities Thyroid disorder 03/27/2015 Tinea unguium 08/13/2018 Traumatic closed fracture of phalanx of foot with minimal displacement 08/11/2017 Traumatic closed nondisplaced fracture of phalanx of right foot with delayed healing 09/08/2017 Type 2 diabetes mellitus with diabetic neuropathy ([facility]) 11/11/2017 Diabetic autonomic (poly) neuropathy Type 2 diabetes mellitus with foot ulcer ([facility]) 06/19/2016 Type 2 diabetes, uncontrolled, with peripheral circulatory disorder ([facility]) 03/28/2017 Xerosis cutis 01/17/2016 Past Surgical History: [...] weeks to review. documented in this encounter [facility] 01-09-2021 Instructions Jef Sierra Jr., DPM - 01/09/2021 8:49 AM EST Keep bandage clean dry and intact documented in this encounter [facility] 01-02-2021 Instructions Jef Sierra Jr., DPM - 01/02/2021 9:19 AM EST Keep bandages clean dry and intact for week documented in this encounter [facility] 01-02-2021 History of Present illness Narrative [...] without toes, left 01/26/2019 Asthma Atherosclerosis [place] arteries of left leg with ulceration of other part of foot ([facility]) 03/14/2017 Back problem Bilateral foot-drop 02/01/2016 Callus of foot 03/16/2019 Cataract Cellulitis and abscess of foot excluding toe 09/26/2014 Cellulitis of great toe, right 10/30/2015 Cellulitis of left foot 08/14/2017 Cellulitis of left lower limb 09/01/2015 Cellulitis of right toe 11/15/2015 Cellulitis of second toe of right foot 11/15/2016 Chronic ulcer of great toe of left foot ([facility]) 03/27/2015 Closed displaced fracture of first metatarsal bone 02/01/2016 Closed displaced fracture of first metatarsal bone of left foot with routine healing 04/17/2015 Contusion of great toe, right 11/04/2016 Contusion of right foot 11/11/2017 Corns and callosities 03/13/2016 Diabetes mellitus ([facility]) Dystrophic nail 11/15/2016 Foot cramps Foot ulcer ([facility]) 02/25/2019 OTHER PART OF FOOT Fracture of third toe, left, closed 02/15/2016 Fungal toenail infection 11/15/2016 GERD (gastroesophageal reflux disease) Glaucoma both eyes Heart murmur High cholesterol 03/27/2015 Hyperlipidemia Hypertension Ingrown toenail 10/30/2015 Leg cramps Metatarsalgia of both feet 10/07/2016 Neuropathy Non-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 ([facility]) 09/06/2016 Non-pressure chronic ulcer of left lower leg with fat layer exposed ([facility]) 03/28/2017 Non-pressure chronic ulcer of other part of left foot with fat layer exposed ([facility]) 08/14/2017 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 involvement without evidence of necrosis ([facility]) 03/14/2017 Non-pressure chronic ulcer of right ankle limited to breakdown of skin ([facility]) 08/14/2016 Nondisplaced fracture of proximal phalanx of right great toe 09/19/2017 Onychomycosis 12/13/2015 Osteomyelitis ([facility]) 04/23/2019 Peripheral vascular disease ([facility]) 08/17/2019 Pre-ulcerative calluses 08/13/2018 Right foot ulcer ([facility]) 09/26/2014 Shortness of breath Sprain of calcaneofibular ligament of right ankle 12/05/2017 Swelling of both ankles Swelling of both lower extremities Thyroid disorder 03/27/2015 Tinea unguium 08/13/2018 Traumatic closed fracture of phalanx of foot with minimal displacement 08/11/2017 Traumatic closed nondisplaced fracture of phalanx of right foot with delayed healing 09/08/2017 Type 2 diabetes mellitus with diabetic neuropathy ([facility]) 11/11/2017 Diabetic autonomic (poly) neuropathy Type 2 diabetes mellitus with foot ulcer ([facility]) 06/19/2016 Type 2 diabetes, uncontrolled, with peripheral circulatory disorder ([facility]) 03/28/2017 Xerosis cutis 01/17/2016 Past Surgical History: [...] weeks to review. documented in this encounter [facility] 12-27-2020 Note Procedure date: 12/18. Intraocular injection: 1.25 mg Bevacizumab (AVASTIN) 2.5mg/0.1 ML syringe [facility]: 32053-040-20, Lot: [id number], Expiration date: 12/29/2020 Route: Intravitreal, Site: Left Eye Notes Bevacizumab (Avastin) Intraocular Injection Left Eye - OPHTHALMOLOGY PROCEDURE NOTE PROCEDURE PERFORMED BY: Sharon Hernandez MD SUPERVISOR PLATE PASTING(S): None ATTENDING: Sharon Hernandez MD PROCEDURE DATE: 12/27/2020 PROCEDURE START TIME: 10:17 AM INDICATIONS: Treatment of ICD-10-CM 1. Diabetic macular edema E11.311 OCT/HRT [facility] OU FUNDUS PHOTOGRAPHY-OU [place] BEVACIZUMAB SOLN - OS IL BEVACIZUMAB SOLN - OS CANCELED: [place] BEVACIZUMAB SOLN - OD EYE: Left (OS) [...] THIS PROCEDURE REQUIRE A UNIVERSAL PROTOCOL? Yes. Korbel Protocol is required. Pre-procedure verification was completed. [...] saline and an antibiotic drop was instilled. [facility] 12-27-2020 Note Procedure date: 12/18. Right [...] Recommendation for management is to continue treatment. [facility] 12-19-2020 Instructions Jef Sierra Jr., DPM - 12/19/2020 11:28 AM EDT Keep bandage clean dry and intact documented in this encounter [facility] 12-19-2020 History of Present illness Narrative [...] without toes, left 01/26/2019 Asthma Atherosclerosis [place] arteries of left leg with ulceration of [...] of left ankle with fat layer exposed ([facility]) 09/06/2016 Non-pressure chronic ulcer of left lower leg with fat layer exposed ([facility]) 03/28/2017 Non-pressure chronic ulcer of other part of left foot with fat layer exposed ([facility]) 08/14/2017 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 involvement without evidence of necrosis ([facility]) 03/14/2017 Non-pressure chronic ulcer of right ankle limited to breakdown of skin ([facility]) 08/14/2016 Nondisplaced fracture of proximal phalanx of right great toe 09/19/2017 Onychomycosis 12/13/2015 Osteomyelitis ([facility]) 04/23/2019 Peripheral vascular disease ([facility]) 08/17/2019 Pre-ulcerative calluses 08/13/2018 Right foot ulcer ([facility]) 09/26/2014 Shortness of breath Sprain of calcaneofibular ligament of right ankle 12/05/2017 Swelling of both ankles Swelling of both lower extremities Thyroid disorder 03/27/2015 Tinea unguium 08/13/2018 Traumatic closed fracture of phalanx of foot with minimal displacement 08/11/2017 Traumatic closed nondisplaced fracture of phalanx of right foot with delayed healing 09/08/2017 Type 2 diabetes mellitus with diabetic neuropathy ([facility]) 11/11/2017 Diabetic autonomic (poly) neuropathy Type 2 diabetes mellitus with foot ulcer ([facility]) 06/19/2016 Type 2 diabetes, uncontrolled, with peripheral circulatory disorder ([facility]) 03/28/2017 Xerosis cutis 01/17/2016 Past Surgical History: [...] Friends and Family: Not on file Attends [employer]: Not on file Active Member of [...] weeks to review. documented in this encounter [facility] 12-13-2020 Note Procedure date: 11/18. Right [...] Recommendation for management is to continue treatment. [facility] 12-13-2020 Note Procedure date: 11/18. Right Eye Quality was good. Findings include subretinal fluid. Interval change is same. Recommendation for management is to continue treatment. Left Eye Quality was good. Findings include subretinal fluid. Interval change is same. Recommendation for management is to continue treatment. [facility] 12-13-2020 Note Procedure date: 11/18. Intraocular injection: 1.25 mg Bevacizumab (AVASTIN) 2.5mg/0.1 ML syringe [facility]: 96015-291-48, Lot: [id number], Expiration date: 12/26/2020 Route: Intravitreal, Site: Right Eye Notes Bevacizumab (Avastin) Intraocular Injection Right Eye - OPHTHALMOLOGY PROCEDURE NOTE PROCEDURE PERFORMED BY: Sharon Hernandez MD SUPERVISOR PLATE PASTING(S): None ATTENDING: Sharon Hernandez MD PROCEDURE DATE: 12/13/2020 PROCEDURE START TIME: 10:05 AM INDICATIONS: Treatment of ICD-10-CM 1. Diabetic macular edema E11.311 bevacizumab 1.25 MG/0.05 ML Solution IL BEVACIZUMAB SOLN - OD OCT/HRT [facility] OU FUNDUS PHOTOGRAPHY-OU [place] BEVACIZUMAB SOLN - OD OCT/HRT [facility] OU [...] THIS PROCEDURE REQUIRE A UNIVERSAL PROTOCOL? Yes. Korbel Protocol is required. Pre-procedure verification was completed. [...] saline and an antibiotic drop was instilled. [facility] 10-17-2020 History of Present illness Narrative [...] as elevated morbidity. documented in this encounter [facility] 10-11-2020 Note Procedure date: 10/10. Right [...] all questions answered Olga Lidia Matos M.D. [employer] [facility] Glaucoma Division [facility] [place] [facility] Department of Ophthalmology and Visual Science Chief [...] OS with Dr. Hernandez. Additional details from [facility] HPI reviewed and I agree with documentation Ocular Medications: 10/10/2020 Exam: CCT: BG=209 m; AN=806 m IOP: OD: 25, OS: 16, 10/10/2020 [...] time was spent with patient performing the field evidence technician work of this visit. documented in this encounter [facility] 10-10-2020 Instructions Olga Lidia Matos MD - 10/10/2020 1:45 PM EDT Right Eye: Dorzolamide/Timolol 2 times a day Rhopressa 1 drop at bedtime Left Eye: Dorzolamide/Timolol 2 times a day documented in this encounter [facility] 10-03-2020 History of Present illness Narrative I was available on site at [facility] for any urgent infusion issues. Jovon Bowers MD Professor of Neurology Director, Neuromuscular Division documented in this encounter [facility] 09-26-2020 History of Present illness Narrative [...] Left; Surgeon: Grace Washington MD; Location: [facility] PERIOP REPLANTATION AMPUTATED FINGER (DISTAL TIP TO [...] UNIT/ML Solution Pen-injector injection, 3 samples given--Lot [id number], exp 10/2021, Disp: 3 Prefilled Pen/Syringe, Rfl: 0 Insulin Lispro, 1 Unit Dial, 100 UNIT/ML Solution Pen-injector, Use less than 30 units daily with sliding scale., Disp: 5 Prefilled Pen/Syringe, Rfl: 3 Multiple Vitamin (MULTI-DAY PO), take 1 tablet by mouth daily.., Disp: , Rfl: tiZANidine 4 MG Tab tablet, tiZANidinetiZANidine (ZANAFLEX) 4 MG tablet as needed. Lolly Haq [facility] ([id number]), Disp: , Rfl: acetaZOLAMIDE 250 MG tablet, Take 1 tablet by mouth 2 times daily. 90 day supply (Patient not taking: Reported on 09/13/2020), Disp: 180 tablet, Rfl: 1 cyanocobalamin 1000 MCG Tab, Take 2 tablets by mouth daily., Disp: 60 tablet, Rfl: 11 Insulin Degludec (Tresiba FlexTouch) 100 UNIT/ML Solution Pen-injector injection, 3 Samples given [id number], Exp 10/2021 (Patient not taking: Reported on 09/26/2020), Disp: 9 mL, Rfl: 0 Insulin Lispro, 1 Unit Dial, (HumaLOG KwikPen) 100 UNIT/ML Solution Pen-injector, Sample given [id number], exp 09/2022 (Patient not taking: Reported on 09/13/2020), Disp: 1 Prefilled Pen/Syringe, Rfl: 0 Insulin Lispro, 1 Unit Dial, (HumaLOG KwikPen) 100 UNIT/ML Solution Pen-injector, Sample given [id number], Exp-09/2022 (Patient not taking: Reported on 09/26/2020), [...] Social Gatherings with Friends and Family: Attends Restoration Services: Active Member of Clubs or Organizations: Attends Club or Organization Meetings: Marital Status: Intimate Partner Violence: Fear of Current or Ex-Partner: Emotionally Abused: Physically Abused: Sexually Abused: documented in this encounter [facility] 09-26-2020 Instructions Franck Mtz MD - [...] results come back. documented in this encounter [facility] 09-21-2020 History of Present illness Narrative The patient tolerated the infusion well without any complications. documented in this encounter [facility] 09-14-2020 History of Present illness Narrative HPI [...] without toes, left 01/26/2019 Asthma Atherosclerosis of [place] arteries of left leg with ulceration of [...] 11/11/2017 Corns and callosities 03/13/2016 Diabetes mellitus ([facility]) Dystrophic nail 11/15/2016 Foot cramps Foot ulcer (HCC) 02/25/2019 OTHER PART OF FOOT Fracture of third toe, left, closed 02/15/2016 Fungal toenail infection 11/15/2016 GERD (gastroesophageal reflux disease) Glaucoma both eyes Heart murmur High cholesterol 03/27/2015 Hyperlipidemia Hypertension Ingrown toenail 10/30/2015 Leg cramps Metatarsalgia of both feet 10/07/2016 Neuropathy Non-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 ([facility]) 09/06/2016 Non-pressure chronic ulcer of left lower leg with fat layer exposed ([facility]) 03/28/2017 Non-pressure chronic ulcer of other part of left foot with fat layer exposed ([facility]) 08/14/2017 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 involvement without evidence of necrosis ([facility]) 03/14/2017 Non-pressure chronic ulcer of right ankle limited to breakdown of skin ([facility]) 08/14/2016 Nondisplaced fracture of proximal phalanx of right great toe 09/19/2017 Onychomycosis 12/13/2015 Osteomyelitis ([facility]) 04/23/2019 Peripheral vascular disease ([facility]) 08/17/2019 Pre-ulcerative calluses 08/13/2018 Right foot ulcer ([facility]) 09/26/2014 Shortness of breath Sprain of calcaneofibular ligament of right ankle 12/05/2017 Swelling of both ankles Swelling of both lower extremities Thyroid disorder 03/27/2015 Tinea unguium 08/13/2018 Traumatic closed fracture of phalanx of foot with minimal displacement 08/11/2017 Traumatic closed nondisplaced fracture of phalanx of right foot with delayed healing 09/08/2017 Type 2 diabetes mellitus with diabetic neuropathy ([facility]) 11/11/2017 Diabetic autonomic (poly) neuropathy Type 2 diabetes mellitus with foot ulcer ([facility]) 06/19/2016 Type 2 diabetes, uncontrolled, with peripheral circulatory disorder ([facility]) 03/28/2017 Xerosis cutis 01/17/2016 Past Surgical History: [...] Social Gatherings with Friends and Family: Attends Restoration Services: Active Member of Clubs or Organizations: [...] need for procedure. documented in this encounter [facility] 09-13-2020 History of Present illness Narrative [...] a neurologist. She is also seeing a athletic coordinator and wound care. She has a follow-up [...] feels. To get her in touch with [employer], however she does not answer her phone if she does not recognize the number, so likely has been missing their calls. We will coordinate with [email or web address]; the tracking features of [email or web address] will undoubtedly help us help her. Hypothyroidism: [...] The patient is nervous/anxious. Patient last seen ems educator 01/27/2018 Nursing Assessment: Physical Exam documented in this encounter [facility] Evaluation note Diagnosis Asthma, unspecified asthma severity, [...] inflammatory demyelinating polyneuritis [facility] Diagnosis Type 2 diabetes mellitus with diabetic polyneuropathy, with long-term current use of insulin- Primary Acquired hypothyroidism Unspecified hypothyroidism Diabetic macular edema- Primary [facility] Diagnosis 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 Diabetic macular edema- Primary [facility] Diagnosis 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 Diabetic macular edema- Primary [facility] Diagnosis 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 Diabetic macular edema- Primary [facility] Diagnosis 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 Diabetic macular edema- Primary [facility] Diagnosis Primary open angle glaucoma (POAG) of right eye, severe stage- Primary Primary open angle glaucoma (POAG) of left eye, severe stage Diabetic macular edema Pseudophakia Lens replaced by other means [facility] Diagnosis Non-intractable vomiting with nausea, unspecified vomiting type- Primary Altered mental status, unspecified altered mental status type Leukocytosis, unspecified type documented in this encounter [employer] Phone: evaluation note* Diagnosis Sepsis (HCC)- Primary Stupor Other alteration of consciousness Encephalitis Unspecified cause of encephalitis, myelitis, and encephalomyelitis Acute osteomyelitis of cervical spine (HCC) 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 MSSA (methicillin susceptible Staphylococcus aureus) septicemia (HCC) Methicillin susceptible staphylococcus aureus septicemia Primary hypertension [...] Acute intractable headache documented in this encounter [facility] [employer] Phone: evaluation note* Diagnosis COVID-19- Primary Pneumonia of left lower lobe due to infectious organism Hypokalemia Hypopotassemia Hypomagnesemia Disorders of magnesium metabolism shelter (current) use of antibiotics documented in this encounter [employer] Phone: [email or web address] note* Diagnosis COVID- Primary Encephalopathy Encephalopathy, unspecified 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 Hypokalemia Hypopotassemia Primary hypertension Unspecified essential hypertension Type 2 diabetes mellitus with diabetic polyneuropathy ([facility]) Type II or unspecified type diabetes mellitus with neurological manifestations, not stated as uncontrolled Hypothyroidism Unspecified hypothyroidism Hypomagnesemia Disorders of magnesium metabolism CIDP (chronic inflammatory demyelinating polyneuropathy) ([facility]) Chronic inflammatory demyelinating polyneuritis Bacteremia MSSA (methicillin susceptible Staphylococcus aureus) septicemia ([facility]) Methicillin susceptible staphylococcus aureus septicemia Bandemia CRP elevated Elevated C-reactive protein (CRP) Metabolic encephalopathy Normocytic anemia Anemia, unspecified Acute respiratory failure with hypoxemia ([facility]) Septic arthritis of cervical spine ([facility]) Pyogenic arthritis, other specified sites Atlantoaxial instability Other joint derangement, not elsewhere classified, other specified site ACP (advance care planning) Other specified counseling Goals of care, counseling/discussion Other specified counseling Encounter for palliative care Feeding difficulties Feeding difficulties and mismanagement On tube feeding diet Pathological fracture of other site, unspecified pathological cause, initial encounter documented in this encounter [employer] Phone: [email or web address] noteNo assessment information available [facility] Work Phone: Evaluation note* Diagnosis Atlantoaxial instability Other joint derangement, not elsewhere classified, other specified site S/P cervical spinal fusion Arthrodesis status documented in this encounter [employer] Phone: [email or web address] note* Diagnosis S/P cervical spinal fusion Arthrodesis status documented in this encounter [employer] Phone: [email or web address] note* Diagnosis Primary open angle glaucoma (POAG) of both eyes, moderate stage- Primary 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 mellitus ([facility]/HCC) Left posterior capsular opacification Unspecified after-cataract Dry eyes Unspecified tear film insufficiency [facility] Diagnosis Other atopic dermatitis- Primary Traumatic ulcer of left foot, unspecified ulcer stage ([facility]) Impetigo documented in this encounter [facility]* Diagnosis Primary open angle glaucoma (POAG) of both eyes, moderate stage- Primary 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 on her [...] FoundDocuments on File Type Date Recorded Patient Body Builder Expl anation Advance Directives and Livin g Will 12/20/2019 3:00 PM Documents on File Type Date Recorded Patient Body Builder Expl anation ACP-Advance Directive ACP-Power of Remote Control Mirror Installer Latest Code Status on File Code Status [...] Documents on File Type Date Recorded Patient Body Builder Expl anation ACP-Advance Directive 08/13/2021 4:27 PM [...] File Name Relationship Healthcare Agent Relationship Communication Cheliandre Thomas Brother/Sister Primary Decision Maker Eun Polo Other Supplemental (Ot her) Decision Maker Healthcare Agents on File Name Relationship Healthcare Agent Relationship Communication Cheli Thomas Brother/Sister Primary Decision Maker Eun Polo Other Supplemental (Ot her) Decision Maker Discharge Instructions [...] be rechecked at the Emergency Department. [ [address] [place] [address]: [place] Office - [address] [address] - Phone Number [phone] [place] Office - [address] [facility] [address] - Phone Number [phone] ] Rest and limit exertion / strenous activity. RETURN if symptoms CHANGE, NOT IMPROVING or need help.Take Medications as prescribed (if prescribed - Please take or use as directed) * Attachments The following attachments cannot be sent through Care Everywhere. * Cellulitis ([place]) in this encounter* Instructions* Andres Lubin MD [...] sent through Care Everywhere. * Nail Avulsion ([place]) documented in this encounter Additional Source Comments [...] Referred By Jeramy coombs Referred To Contact Diagnoses CIDP (chronic inflammatory demyelinating polyneuropathy) Krystyna Busby [facility] [address] [facility] [id number] [place] [address] In[address] [facility] [address] [place] [address] Referral ID Status Reason Start Date Expiration Date V isits Requested Visits Authorized [id number] Auth Not Needed 06/24/2018 100 100 Reason Comments Follow-up Diabetes Thyroid Problem Reason Comments Infusion Visit IVIG Specialty Diagnoses / Procedures Referred By Jeramy coombs Referred To Contact Diagnoses CIDP (chronic inflammatory demyelinating polyneuropathy) Krystyna Busby [facility] [address] [facility] [id number] [place] [address] [address] [facility] [address] [place] [address] Reason Comments Follow-up Reason Comments Glaucoma Follow-up Reason Comments Nausea [facility] [place] [facility] Per EMS she was outside and was brought back inside they were unaware she was outside. Per [facility] and EMS she is having bizarre behavior Emesis Altered Mental Status Reason Comments Altered Mental Status Specialty Diagnoses / Procedures Referred By Contmarium t Referred To Contact Diagnoses Altered mental state [facility] [address] [place] [address] [facility] [address] [place] [address] Referral ID Status Reason Start Date Expiration Date Visits Re quested Visits Authorized [id number] 1 1 Reason Comments Hypertension Patient was at [facility] for blood transfusion/low potassium transferred to ED for evaluation Reason Comments Follow-up Eye Exam Reason Comments Eczema Reason Comments Glaucoma INFORMATION SOURCE (unrecogn ized section and content) DATE CREATED AUTHOR 04/08/2018 [facility] DATE CREATED AUTHOR AUTHOR'S ORGANIZ ATION 06/07/2019 [facility] DATE CREATED AUTHOR AUTHOR'S ORGANIZ ATION 12/25/2019 [facility] DATE CREATED AUTHOR AUTHOR'S ORGANIZ ATION 02/13/2020 [facility] DATE CREATED AUTHOR AUTHOR[facility]S ORGANIZ ATION [facility] DATE CREATED AUTHOR AUTHOR'S ORGANIZ ATION 05/02/2021 [facility] DATE CREATED AUTHOR AUTHOR'S ORGANIZ ATION 05/07/2021 [facility] DATE CREATED AUTHOR AUTHOR'S ORGANIZ ATION 05/09/2021 [facility] DATE CREATED AUTHOR AUTHOR'S ORGANIZ ATION 05/15/2021 [facility] DATE CREATED AUTHOR AUTHOR'S ORGANIZ ATION 06/01/2021 [facility] DATE CREATED AUTHOR AUTHOR'S ORGANIZ ATION 06/13/2021 [facility] DATE CREATED AUTHOR AUTHOR'S ORGANIZ ATION 09/05/2021 [facility] DATE CREATED AUTHOR AUTHOR'S ORGANIZ ATION 10/30/2021 [facility] DATE CREATED AUTHOR AUTHOR'S ORGANIZ ATION 11/27/2021 [facility] DATE CREATED AUTHOR AUTHOR'S ORGANIZ ATION 12/10/2021 [facility] DATE CREATED AUTHOR AUTHOR'S ORGANIZ ATION 11/25/2022 [facility] DATE CREATED AUTHOR AUTHOR'S ORGANIZ ATION 01/26/2023 [facility] DATE CREATED AUTHOR AUTHOR'S ORGANIZ ATION 05/07/2024 [facility] DATE CREATED AUTHOR AUTHOR'S ORGANIZ ATION 09/28/2024 [facility] dical Specialists EPIC Lindsey Bradshaw LPN - 05/29/2018 9:54 AM [...] Care Teams (unrecognized sec tion and content) Mitigation Supervisor Relationship Specialty Start Date End Date Neri Santa, DO [address] [place] [address] PCP - General Family Medicine 03/28/17 Pili Gilliam DPM Consulting Physician Podiatry 04/07/17 Reji Miramontes III, Consulting Physician Vascular Surgery 04/07/17 Mitigation Supervisor Relationship Specialty Start Date End Date Neri Santa, DO [address] [place] [address] PCP - General Family Medicine 03/28/17 Pili Gilliam DPM Consulting Physician Podiatry 04/07/17 Reji Miramontes III, DO Consulting Physician Vascular Surgery 04/07/17 Mitigation Supervisor Relationship Specialty Start Date End Date Neri Santa, DO [address] [place] [address] PCP - General Family Medicine 03/28/17 Pili Gilliam, MARK Consulting Physician Podiatry 04/07/17 Reji Miramontes III, DO Consulting Physician Vascular Surgery 04/07/17 Mitigation Supervisor Relationship Specialty Start Date End Date Neri Santa, DO [address] [place] [address] PCP - General Family Medicine 03/28/17 Pili Gilliam, MARK Consulting Physician Podiatry 04/07/17 Reji Miramontes III, DO Consulting Physician Vascular Surgery 04/07/17 Mitigation Supervisor Relationship Specialty Start Date End Date Neri Santa, DO [address] [place] [address] PCP - General Family Medicine 03/28/17 Pili Gilliam, DPM Consulting Physician Podiatry 04/07/17 Reji Miramontes III, DO Consulting Physician Vascular Surgery 04/07/17 Mitigation Supervisor Relationship Specialty Start Date End Date Neri Santa, DO [address] [place] [address] PCP - General Family Medicine 03/28/17 Pili Gilliam, DPM Consulting Physician Podiatry 04/07/17 Reji Miramontes III, Consulting Physician Vascular Surgery 04/07/17 Mitigation Supervisor Relationship Specialty Start Date End Date Neri Santa, DO [address] [place] [address] PCP - General Family Medicine 03/06/17 Skylar Hernandez MD [address] [place] [address] Ophthalmology 07/18/17 Kartik Mejia MD [address] [place] [address] Pain Medicine 12/25/17 Tisha Arriaga MD [address] [place] [address] Neurologist Neurology 07/18/17 Luis Miguel Kaur MD [address] [place] [address] [id number] Craniologist Endocrinology, Diabetes & Metabolism 03/06/17 Chris Zavala, OD [address] [place] [address] Optometry 03/15/20 Mitigation Supervisor Relationship Specialty Start Date End Date Neri Santa, DO [address] [place] [address] PCP - General Family Medicine 03/06/17 Skylar Hernandez MD [address] [place] [address] Ophthalmology 07/18/17 Kartik Mejia MD [address] [place] [address] Pain Medicine 12/25/17 Tisha Arriaga MD [address] [place] [address] Neurologist Neurology 07/18/17 Luis Miguel Kaur MD [address] [place] [address] Craniologist Endocrinology, Diabetes & Metabolism 03/06/17 Chris Zavala, OD [address] [place] [address] Optometry 03/15/20 Mitigation Supervisor Relationship Specialty Start Date End Date Neri Santa DO [address] [place] [address] PCP - General Family Medicine 03/06/17 Skylar Hernandez MD [address] [place] [address] Ophthalmology 07/18/17 Kartik Mejia MD [address] [place] [address] Pain Medicine 12/25/17 Tisha Arriaga MD [address] [place] [address] Neurologist Neurology 07/18/17 Luis Miguel Kaur MD [address] [place] [address] Craniologist Endocrinology, Diabetes & Metabolism 03/06/17 Chris Zavala, OD [address] [place] [address] Optometry 03/15/20 Mitigation Supervisor Relationship Specialty Start Date End Date Neri Santa DO [address] [place] [address] PCP - General Family Medicine 03/06/17 Skylar Hernandez MD [address] [place] [address] Ophthalmology 07/18/17 Kartik Mejia MD [address] [place] [address] Pain Medicine 12/25/17 Tisha Arriaga MD [address] [place] [address] Neurologist Neurology 07/18/17 Luis Miguel Kaur MD [address] [place] [address] Craniologist Endocrinology, Diabetes & Metabolism 03/06/17 Chris Zavala, OD [address] [place] [address] Optometry 03/15/20 Mitigation Supervisor Relationship Specialty Start Date End Date Arina, Neri Parkre, [address] [place] [address] PCP - General Family Medicine 03/06/17 Skylar Hernandez MD [address] [place] [address] Ophthalmology 07/18/17 Kartik Mejia MD [address] [place] [address] [place] [address] Pain Medicine 12/25/17 Tisha Arriaga MD [address] [place] [address] Neurologist Neurology 07/18/17 Luis Miguel Kaur MD [address] [place] [address] Craniologist Endocrinology, Diabetes & Metabolism 03/06/17 LucasChris, OD [address] [place] [address] Optometry 03/15/20 Mitigation Supervisor Relationship Specialty Start Date End Date Neri Santa, DO [address] [place] [address] PCP - General Family Medicine 03/06/17 Skylar Hernandez MD [address] [place] [address] Ophthalmology 07/18/17 Kartik Mejia MD [address] [place] [address] Pain Medicine 12/25/17 Tisha Arriaga MD [address] [place], [place] [id number] Neurologist Neurology 07/18/17 Luis Miguel Kaur MD [address] [place] [address] Craniologist Endocrinology, Diabetes & Metabolism 03/06/17 LucasChris, OD [address] [place] [address] Optometry 03/15/20 Mitigation Supervisor Relationship Specialty Start Date End Date Neri Santa, DO [address] [place] [address] PCP - General Family Medicine 03/06/17 Skylar Hernandez MD [address] [place] [address] Ophthalmology 07/18/17 Kartik Mejia MD [address] [place] [address] Pain Medicine 12/25/17 Tisha Arriaga MD [address] [place] [address] Neurologist Neurology 07/18/17 Luis Miguel Kaur MD [address] [place] [address] Craniologist Endocrinology, Diabetes & Metabolism 03/06/17 Chris Zavala, OD [address] [place] [address] Optometry 03/15/20 Mitigation Supervisor Relationship Specialty Start Date End Date Sr Neri Santa, [address] [place] [address] PCP - General Family Medicine 07/19/18 Mitigation Supervisor Relationship Specialty Start Date End Date Sr Neri Santa, DO [address] [place] [address] PCP - General Family Medicine 07/19/18 Mitigation Supervisor Relationship Specialty Start Date End Date Sr Neri Santa, DO [address] [place] [address] PCP - General Family Medicine 07/19/18 Mitigation Supervisor Relationship Specialty Start Date End Date Sr Neri Santa, DO [address] [place] [address] PCP - General Family Medicine 07/19/18 Team Status: Inactive Member Role Status Dates Rufus Shen II MD Attending Provider Active Mitigation Supervisor Relationship Specialty Start Date End Date Ganga Savage MD [address] [place], [place] [id number] PCP - General Internal Medicine 08/14/21 Mitigation Supervisor Relationship Specialty Start Date End Date Ganga Savage MD [address] [place] [address] PCP - General Internal Medicine 08/14/21 Mitigation Supervisor Relationship Specialty Start Date End Date Ganga Savage MD [facility] [place] [address] PCP - General Internal Medicine 08/14/21 Mitigation Supervisor Relationship Specialty Start Date End Date Neri Santa MD [address] [place] [address] PCP - General Family Medicine 08/12/22 Mitigation Supervisor Relationship Specialty Start Date End Date Neri Santa MD [address] [place] [address] PCP - General Family Medicine 08/12/22 Mitigation Supervisor Relationship Specialty Start Date End Date Neri Santa MD [address] [place] [address] PCP - General Family Medicine 08/12/22 Mitigation Supervisor Relationship Specialty Start Date End Date Neri Santa MD [address] [place] [address] PCP - General Family Medicine 08/12/22 Mitigation Supervisor Relationship Specialty Start Date End Date Neri Santa MD [address] [place] [address] PCP - General Family Medicine 08/12/22 Mitigation Supervisor Relationship Specialty Start Date End Date Neri Santa MD PCP - General Family Medicine 08/12/22 Mitigation Supervisor Relationship Specialty Start Date End Date Neri Santa MD PCP - General Family Medicine 08/12/22 Mitigation Supervisor Relationship Specialty Start Date End Date Neri Santa MD PCP - General Family Medicine 08/12/22 Scheduled [...] Maggi Quiñones RN)0949 (Given - Provider: Sebas Arnold, VIRGIE)1621 (Given - Provider: Sebas Arnold RN)2245 (Due) aspirin chewable tablet 81 mg 81 mg, Oral, DAILY, First dose on 06/30/21 at 0900, Until Discontinued 0900 (Automatically Held - Provider: Kam Prado APRN - MANAGER INSIDE) 0900 (Held - Provider: Sebas Arnold RN [...] Held - Provider: Kam Prado APRN - MANAGER INSIDE) 09 (Held - Provider: Sebas Arnold RN [...] Arnold RN)1322 (Given - Provider: Sebas Arnold RN)2028 (Given [...] (Patch Removed - Provider: Maggi Quiñones RN) 808 (Patch Applied - Provider: Sebas Arnold RN)2026 (Patch Removed - Provider: Maggi Quiñones RN) 914 (Patch Applied - Provider: Sebas Arnodl RN)2114 (Due: Patch Removed - Provider: Sebas [...] Camilo Hernandez RN)1256 (Stopped - Provider: Camilo Hernandez, RN)1758 (New Bag - Provider: Camilo Hernandez RN)1811 (Stopped - Provider: Camilo Hernandez, RN)2018 [...] Sebas Arnold RN)1648 (Stopped - Provider: Sebas Arnold RN)2030 (New Bag - Provider: Maggi Quiñones RN)2158 [...] Sebas Arnold RN)1233 (Stopped - Provider: Sebas Arnold RN)1600 (Due - Provider: Rufus Argueta MD)1999 (Due - Provider: Rufus Argueta MD) potassium [...] further dilute if GI adverse effects occur. 921 (Given - Provid er: Sebas Arnold RN) [...] on 07/08/21 at 0800, Last dose on 07/08/21 at 1100, at 100 mL/hr 0811 (New [...] Quiñones RN - Reason: IV Fluid Infusing) 0812 (Given - Provider: Sebas Arnold RN)2027 (Not Given - Provider: Maggi Quiñones RN - Reason: IV Fluid Infusing) 0917 (Given - Provider: Sebas Arnold RN)2100 (Due - Provider: Rufus Argueta MD) sodium [...] Quiñones RN - Reason: IV Fluid Infusing) 0809 (Given - Provider: Sebas Arnold RN)2027 (Not Given - Provider: Maggi uQiñones RN - Reason: IV Fluid Infusing) 0916 (Given - Provider: Sebas Arnold RN)2100 (Due) valproic acid (DEPAKENE) 250 MG/5ML oral solution 250 mg 250 mg, Oral, 2 times daily, First dose on Fri07/03/21 at 1515, Until Discontinued 0814 (Given - Provider: Camilo Hernandez RN)211 (Given - Provider: Maggi Quiñones RN) 0807 (Given - Provider: Sebas Arnold, VIRGIE)2027 (Given - Provider: Maggi Quiñones RN) 0914 (Given - Provider: Sebas Arnold RN)2100 (Due) Continuous Medication Order 07/08/2021 07/09/2021 [...] IntraVENous, PRN, Low blood sugar, Starting on Nohemy 06/28/21 at 1617, Start infusion following administration of [...] Arnold RN)1317 (See Alternative - Provider: Sebas Arnold, RN) glucagon (rDNA) injection 1 mg 1 [...] stool. 0808 (Given - Provider: Sebas Arnold, VIRGIE) 0915 (Given - Provider: Sebas Arnold, VIRGIE) morphine (PF) injection 1 mg 1 mg, [...] 06/28/21 at 2107, Until Discontinued, Nausea, Vomiting oxyCODONE (ROXICODONE) immediate release tablet 10 mg(Linked Group 3) 10 mg, Oral, EVERY 4 HOURS PRN, Starting on Fri07/06/21 at 2217, Until Discontinued, Pain Severe (7-10) 1348 (Given - Provider: Camilo Hernandez RN) 0522 (Given - Provider: Maggi Quiñones RN)1533 (See Alternative - Provider: Sebas Arnold RN) oxyCODONE (ROXICODONE) immediate release tablet 5 [...] Oral, EVERY 8 HOURS PRN, Starting on 07/02/21 at 1157, Until Discontinued, Muscle spasms 0808 (Given - Provider: Sebas Arnold, VIRGIE) 0915 (Given - Provider: Sebas Arnold, VIRGIE) Linked Groups Order Group 1: dextrose bolus [...] (HAP) 0003 (New Bag - Provider: Bassam Camacho RN)0035 (Stopped - Provider: Bassam Camacho RN) piperacillin-tazobactam (ZOSYN) 3,375 mg in dextrose 5 % 50 mL IVPB (mini-bag) (COMPLETED) 3,375 mg, IntraVENous, ONCE, 1 dose, On 07/14/21 at 0515, Antimicrobial Indications: Pneumonia (HAP), Other, Other Abx Indication: C1 abscess 0554 (New Bag - Provider: Kati Villarreal RN)06 (Stopped - Provider: Kati Villarreal RN) piperacillin-tazobactam [...] further dilute if GI adverse effects occur. 06 (Given - Provid er: Kati Villarreal RN) potassium chloride 10 mEq/100 mL IVPB (Peripheral Line) (COMPLETED) 40 mEq, IntraVENous, ONCE, 1 dose, On 07/14/21 at 0715, Administer over 4 Hours, at 100 mL/hr 0725 (New Bag - Provider: Kati Phil, RN)1128 (Stopped - Provider: Kati Villarreal RN) [...] Goldberg RN)1710 (Not Given - Provider: Alejandra Goldebrg RN - Reason: Contraindicated) 0800 (Given - [...] Peralta RN) 0820 (Given - Provider: Anna Veliz RN)2009 [...] policy 0850 (Given - Provider: Alejandra Goldberg RN)205 (Given - Provider: Maggi Multani RN) 0801 (Given - Provider: Yolanda De La Fuente, VIRGIE)204 (Given - Provider: Lubna Peralta RN) 08 (Given - Provider: Anna Veliz RN)2021 (Given - Provider: Lubna Peralta RN) gabapentin (NEURONTIN) capsule 200 mg 200 mg, Oral, 3 TIMES DAILY, First dose on Fri07/19/21 at 0900, Until Discontinued 0850 (Given - Provider: Alejandra Goldberg RN)1558 (Given - Provider: Alejandra Goldberg RN)2052 (Given - Provider: Maggi Multani, VIRGIE) 1030 (Given - Provider: Yolanda De La Fuente RN)1610 (Given - Provider: Yolanda De La Fuente RN)2205 (Given - Provider: Lubna Peralta RN) 1014 (Given - Provider: Anna Veliz RN)1517 (Given - Provider: Anna Veliz RN)2200 (Due - Provider: Linn Duvall [facility]) insulin glargine (LANTUS) injection vial 10 Units [...] RN)210 (Given - Provider: Maggi Multani RN) 0250 (Not Given - Provider: Maggi Multani RN - Reason: Order parameters not met)0812 (Given - Provider: Yolanda De La Fuente RN - Comment: bs 202)1653 (Given - Provider: Yolanda De La Fuente RN)2043 (Given - Provider: Lubna Peralta RN) 0318 (Not Given - Provider: Lubna Peralta RN - Reason: Order parameters not met - Comment: blood sugar 133mg/dl)1012 (Given - Provider: Anna Veliz RN)1517 (Given - Provider: Anna Veliz RN)2027 (Given - Provider: Lubna Peralta RN) lactobacillus (CULTURELLE) capsule 1 capsule 1 capsule, Oral, DAILY WITH BREAKFAST, First dose on Fri07/19/21 at 0815, Until Discontinued, Do not add [...] drop, Both Eyes, NIGHTLY, First dose on 07/19/22 at 2100, Until Discontinued 2052 (Given - Provider: Maggi Multani RN) 2034 (Given - Provider: Lubna Peralta, VIRGIE) 2024 (Given - Provider: Lubna Peralta, VIRGIE) levothyroxine (SYNTHROID) tablet 100 mcg 100 mcg, Oral, DAILY, First dose on 07/14/21 at 1730, Until Discontinued, Tube feeding (TF) interaction, obtain physician order to manage, recommend holding TF for 30 minutes before and after dose. 0901 (Given - Provider: Alejandra Goldberg RN) 0612 (Given - Provider: Maggi Multani RN) 0559 (Given - Provider: Lubna Peralta, VIRGIE) metoclopramide (REGLAN) injection 5 mg (CANCELED) 5 [...] Alaina Funes RN)1708 (Stopped - Provider: Alaina Funes RN)1711 (Stopped - Provider: Alejandra Goldberg RN)2207 (New Bag - Provider: Maggi Multani, VIRGIE)2307 (Stopped - Provider: Maggi Multani, VIRGIE) 0343 [...] Anna Veliz RN)1115 (Stopped - Provider: Anna Veliz, VIRGIE)1649 (New Bag - Provider: Anna Veliz, VIRGIE)1650 (Rate/Dose Verify - Provider: Anna Veliz, VIRGIE)1749 (Stopped - Provider: Anna Veliz RN)2230 (Due [...] Lubna Peralta RN)0820 (Given - Provider: Anna Veliz, VIRGIE)142 (Given - Provider: Anna Veliz RN)2009 (Given [...] RN) 2199 (Due - Provider: Linn Duvall [facility]) valproic acid (DEPAKENE) 250 MG/5ML oral solution [...] Veliz RN)1258 (Rate/Dose Verify - Provider: Anna Veliz, RN)1544 (Rate/Dose Verify - Provider: Anna Veliz, VIRGIE)1910 (Rate/Dose Verify - Provider: Anna Veliz RN) [...] RN)1842 (Rate/Dose Verify - Provider: Alaina Funes RN)185 (Rate/Dose Verify - Provider: Yolanda De La Fuente RN)185 (Rate/Dose Verify - Provider: Yolanda De La Fuente RN)192 (Handoff - Provider: Alejandra Goldberg RN)2030 (Rate/Dose Verify - Provider: Yolanda De La Fuente RN)2031 (Rate/Dose Verify - Provider: Yolanda De La Fuente RN)2111 (Rate/Dose Verify - Provider: Yolanda De La Fuente RN)2112 (Rate/Dose Verify - Provider: Yolanda De La Fuente RN)211 (New Bag - Provider: Maggi Multani RN) 0752 (Rate/Dose Verify - Provider: Yolanda De La Fuente RN)1258 (Rate/Dose Verify - Provider: Yolanda De La Fuente RN)1346 (Rate/Dose Verify - Provider: Yolanda De La Fuente RN)1347 (Rate/Dose Verify - Provider: Yolanda De La Fuente RN)1413 (Rate/Dose Verify - Provider: Yolanda De L aFuente RN)1513 (Rate/Dose Verify - Provider: Yolanda De La Fuente RN)1514 (New Bag - Provider: Destiny Houston RN)1638 (Rate/Dose Verify - Provider: Yolanda De La Fuente RN)1852 (Rate/Dose Verify - Provider: Yolanda De La Fuente RN)1917 (Handoff - Provider: Yolanda De La Fuente RN)2000 (Rate/Dose Verify - Provider: Lubna Peralta RN) 0335 (New Bag - Provider: Lubna ePralta RN)0407 (Rate/Dose Verify - Provider: Lubna Peralta RN)0623 (Rate/Dose Verify - Provider: Lubna Peralta RN)0727 (Handoff - Provider: Lubna Peralta RN)0747 (Rate/Dose Verify - Provider: Lubna Peralta RN)1258 (Rate/Dose Verify - Provider: Anna Veliz RN)1544 (Rate/Dose Verify - Provider: Anna Veliz RN)1909 (Handoff - Provider: Anna Veliz RN)1910 (Rate/Dose Verify - Provider: Anna Veliz RN)203 [...] IntraVENous, EVERY 1 HOUR PRN, Starting on Tu08/07/21 at 0545, Until Fri08/10/21 at 0758, Pain [...] (Given - Provider: Yolanda De La Fuente VIRGIE) glucagon (rDNA) injection 1 mg 1 mg, [...] mEq, Oral, PRN, Starting on Fri07/25/21 at 06, Until Discontinued, Per Potassium Replacement Protocol
Administer [...] mEq, IntraVENous, PRN, Starting on Fri07/25/21 at 06, Until Discontinued, at 100 mL/hr, Potassium Replacement
[...] the iv AB is over - keep long filler cigar roller machine suppression 60 tablet 11 07/09/2021 07/09/2021 Prescription [...] BE BASED ON THE PRIMARY CLINICAL RECORDS. [employer] provides no warranty or guarantee of the accuracy or completeness of information in this document.
== END 2024-10-05 10:58 | disposition home or self-care (01) ==
LOC: WC 10:58
PROVIDERS: PCP Family Medicine; Visit Provider Physician Assistant
DX: E11.621 Type 2 diabetes mellitus with foot ulcer (principal); L97.521 Non-pressure chronic ulcer of other part of left foot limited to breakdown of skin; L97.422 Non-pressure chronic 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
CPT/HCPCS: 11043

== ENCOUNTER 2024-10-26 10:55 | Outpatient (OUT) | payer MEDICARE, OTHER, MEDICAID, SELFPAY ==
--- OUTSIDE RECORDS SUMMARY | 2024-10-26 10:57 | XMS_ITS | Encounter Summary ---
Author Organization [facility] Address [address] [place] [address] Care Team Providers Care Fisher Weir Name Role Phone Aamir Purcell MD Primary Care Provider [phone] Encounter Details Date Type Department Care Team (Late st Contact Info) Description 12/05/2022 Clinisync Result Encounter [facility] External Department Unsolicited Maine Chávez, CUTTER OPERATOR HELPER [address] [facility] [address] [place] [address] Social History Tobacco Use Types Packs/Day Years [...] 12/27/2024 1:45 PM EST Office Visit [facility] [address] [place] [phone] Adilson Johnson, DO [address] [place] [address] documented as of this encounter Procedures Procedure [...] by: SINDY Technologist: TAMMIE us Maine Chávez CUTTER OPERATOR HELPER [facility] Final Result documented in this encounter Visit Diagnoses Not on filedocumented in this encounter Care Teams Fisher Weir Relationship Specialty Start Date End Date Aamir Purcell MD PCP - General Family Medicine 08/12/22 documented as of this encounter
--- OUTSIDE RECORDS SUMMARY | 2024-10-26 10:57 | XMS_ITS | Encounter Summary ---
Author Organization [facility] Address [address] [place] [address] Care Team Providers Care Certified Surgical Assistant Name Role Phone Aamir Purcell DO Primary Care Provider [phone] Encounter Details Date Type Department Care Team (Late st Contact Info) Description 10/27/2021 Lab Requisition [facility] [address] [place] [address] Migue Cole MD [address] [place] [address] Social History Tobacco Use Types Packs/Day Years [...] - 48.0 % 10/27/2021 8:48 PM EDT [facility] Blood Venous blood specimen / Unknown 10/27/2021 7:21 PM EDT 10/27/2021 7:22 PM EDT us Migue Cole MD LAB BLOOD ORDERABLES Final Result [facility] [address] [place] [address] * (ABNORMAL) Hemoglobin (10/27/2021 7:21 PM EDT) Hemoglobin 10.7(L) 12.0 - 15.0 g/dL 10/27/2021 8:49 PM EDT [facility] Blood Venous blood specimen / Unknown 10/27/2021 7:21 PM EDT 10/27/2021 7:22 PM EDT Migue Cole MD LAB BLOOD ORDERABLES Final Result Performing Organization Address City/[facility] Co de Phone Number [facility] ([place]) [address] [place], [place] [phone] documented in this encounter Visit Diagnoses Not on filedocumented in this encounter Care Teams Certified Surgical Assistant Relationship Specialty Start Date End Date Aamir Purcell DO [address] [place] [address] PCP - General 10/19/21 documented as of this encounter
--- OUTSIDE RECORDS SUMMARY | 2024-10-26 10:57 | XMS_ITS | Encounter Summary ---
Author Organization [facility] Address [address] [place] [address] Care Team Providers Care Bag Cutter Name Role Phone Aamir Purcell Primary Care Provider [phone] Hoang Gilliam DPM Unavailable [phone] Fe SOMMER DO, W. Don Unavailable [phone] Encounter Details Date Type Department Care Team (Late st Contact Info) Description 04/02/2017 Abstract [facility] [address], 3rd [place] [address] Alaina Doan MA Social History [...] documented as of this encounter Care Teams Bag Cutter Relationship Specialty Start Date End Date Aamir Purcell DO [address] [place] [address] PCP - General Family Medicine 03/28/17 Hoang Gilliam DPM [address] [place] [address] Consulting Physician Podiatry 04/07/17 05/17/21 Reji Miramontes III, DO [address] [place] [address] Consulting Physician Vascular Surgery 04/07/17 05/17/21 documented as of this encounter
--- OUTSIDE RECORDS SUMMARY | 2024-10-26 10:57 | XMS_ITS | Encounter Summary ---
Author Organization [facility] Address [address] [place] [address] Care Team Providers Care Sales Merchandising Specialist Name Role Phone Aamir Purcell MD Primary Care Provider [phone] Encounter Details Date Type Department Care Team (Late st Contact Info) Description 08/24/[address] [facility] [address] [facility] [address] [place] [address] Unallocated, Noms MD Garrick [address] [place] [address] Social History Tobacco Use Types Packs/Day Years [...] 12/27/2024 1:45 PM EST Office Visit [facility] [address] [place] [address] Adilson Johnson, DO [address] [place] [address] documented as of this encounter Visit Diagnoses Not on filedocumented in this encounter Care Teams Sales Merchandising Specialist Relationship Specialty Start Date End Date Aamir Purcell MD PCP - General Family Medicine 08/12/22 documented as of this encounter
--- OUTSIDE RECORDS SUMMARY | 2024-10-26 10:57 | XMS_ITS | Encounter Summary ---
Author Organization [facility] Address [address] [place] [address] Care Team Providers Care Insurance Claims Supervisor Name Role Phone Aamir Purcell MD Primary Care Provider [phone] Encounter Details Date Type Department Care Team (Late Contact Info) Description 08/16/2024 [facility] [address] [place] [address] Aamir Purcell MD [address] [place] [address] Social History Tobacco Use Types Packs/Day Years [...] 12/27/2024 1:45 PM EST Office Visit [facility] [address] [place] [address] Adilson Johnson, DO [address] [place] [address] documented as of this encounter Visit Diagnoses Not on filedocumented in this encounter Care Teams Insurance Claims Supervisor Relationship Specialty Start Date End Date Aamir Purcell MD PCP - General Family Medicine 08/12/22 documented as of this encounter
--- OUTSIDE RECORDS SUMMARY | 2024-10-26 10:57 | XMS_ITS | Encounter Summary ---
Author Organization [facility] Address [address] [place] [address] Care Team Providers Care Car Pilot Name Role Phone Aamir Purcell DO Primary Care Provider [phone] Encounter Details Date Type Department Care Team (Late st Contact Info) Description 10/30/2021 Lab Requisition [facility] [address] [address] Migue Cole MD [address] [place] [address] Social History Tobacco Use Types Packs/Day Years [...] - 145 mmol/L 10/30/2021 9:42 AM EDT [facility] ([facility]) Potassium 4.3 3.5 - 5.1 mmol/L 10/30/2021 9:42 AM EDT [facility]) Chloride 101 98 - 107 mmol/L 10/30/2021 9:42 AM EDT [facility] ([facility]) CO2 28 21 - 31 mmol/L 10/30/2021 9:42 AM EDT [facility] ([facility]) BUN 36(H) 7 - 25 mg/dL 10/30/2021 9:42 AM EDT [facility] ([facility]) Creatinine 0.71 0.60 - 1.20 mg/dL 10/30/2021 9:42 AM EDT [facility] ([facility]) Glucose 74 70 - 100 mg/dL 10/30/2021 9:42 AM EDT [facility] ([facility]) Calcium 9.6 8.6 - 10.3 mg/dL 10/30/2021 9:42 AM EDT [facility] ([facility]) Anion Gap 10 <=30 mmol/L 10/30/2021 9:42 AM EDT [facility] ([facility]) eGFR 94.2 >60.0 mL/min/1. 73m*2 10/30/2021 9:42 AM EDT [facility] ([facility]) Comment:[facility] s estimated glomerular filtration rate (eGFR) will [...] BUN/Creatinine Ratio 50.70 10/18 9:42 AM EDT [facility] ([facility]) Blood Venous blood specimen / Unknown 10/30/2021 7:00 AM EDT 10/30/2021 3:45 AM EDT us Migue Cole MD LAB BLOOD ORDERABLES Final Result [facility] ([facility]) [address] [place] [address] documented in this encounter Visit Diagnoses Not on filedocumented in this encounter Care Teams Car Pilot Relationship Specialty Start Date End Date Aamir Purcell DO [address] [place] [address] PCP - General 10/19/21 documented as of this encounter
--- OUTSIDE RECORDS SUMMARY | 2024-10-26 10:57 | XMS_ITS | Encounter Summary ---
Author Organization [facility] Address [address] [place] [address] Care Team Providers Care Electric Organ Inspector And Repairer Name Role Phone Aamir Purcell MD Primary Care Provider [phone] Encounter Details Date Type Department Care Team (Late st Contact Info) Description 12/13/2022 Clinisync Result Encounter [facility] External Department Unsolicited Maine Chávez, DERMATOPATHOLOGIST 112 [facility] 110 [place] [address] Social History Tobacco Use Types Packs/Day Years [...] 1:45 PM EST Office Visit [facility] [address] [place] [phone] Adilson Johnson, DO [address] [place] [address] documented as of this encounter Procedures Procedure Name Priority Date/Time Associated Diagnosis Comments BD BONE DENSITY DEXA 12/13/2022 2:02 PM EDT documented in this encounter Results * BD BONE DENSITY DEXA (12/13/2022 2:02 PM EDT) Anatomical Region Laterality Modality Other 12/13/2022 2:0 2 PM EDT Narrative 12/14/2022 10:45 AM EDT [...] by: SINDY Technologist: ANGÉLICA us Maine Chávez DERMATOPATHOLOGIST [facility] Final Result documented in this encounter Visit Diagnoses Not on filedocumented in this encounter Care Teams Electric Organ Inspector And Repairer Relationship Specialty Start Date End Date Aamir Purcell MD PCP - General Family Medicine 08/12/22 documented as of this encounter
--- OUTSIDE RECORDS SUMMARY | 2024-10-26 10:57 | XMS_ITS | Clinical Summary ---
Author Organization [facility] Address [address] [place] [address] Care Team Providers Care Senior Interaction Designer Name Role Phone Aamir Purcell DO Primary Care Provider [phone] Social History Tobacco Use Types Packs/Day Years Used Date Smoking Tobacco: Never Assessed [place] Safety & Environment Answer Date Rec orded [...] COVID-19 Vaccine (1 - 2023-2 5 season) 2024 Influenza Vaccine (#1) 2024 11/04/2013 Pneumococcal Vaccine: [...] Payer (Ef fective 2004-Present) Name:Cleo Georges Member ID:[id number] Relation to Subscriber:Self Name:Cleo Georges Subscriber ID:[id number] Payer ID:[id number] Group ID:Not on file Type:Medicare Address: [facility] [place] [id number] Care Teams Senior Interaction Designer Relationship Specialty Start Date End Date Aamir Purcell DO [address] [place] [address] PCP - General 10/19/21
--- OUTSIDE RECORDS SUMMARY | 2024-10-26 10:57 | XMS_ITS | Encounter Summary ---
Author Organization [facility] Address [address] [place] [address] Care Team Providers Care Sporting Goods Salesperson Name Role Phone Aamir Purcell MD Primary Care Provider [phone] Encounter Details Date Type Department Care Team (Late st Contact Info) Description 03/31/2023 Orders Only [facility] 110 [place] [address] A, Unknown Practice [address] [place] [address] Social History Tobacco Use Types Packs/Day Years [...] [facility] Eye [address] [place] [address] Adilson Johnson, DO [address] [place] [address] documented as of this encounter Procedures Procedure Name Priority Date/Time Associated Diagnosis Comments SCANNED LABS Routine 03/29/2023 1:07 PM EST documented in this encounter Results * SCANNED LABS (03/29/2023 1:07 PM EST) us Unknown Practice A LAB CHG PERFORMABLES Final Re sult documented in this encounter Visit Diagnoses Not on filedocumented in this encounter Care Teams Sporting Goods Salesperson Relationship Specialty Start Date End Date Aamir Purcell MD PCP - General Family Medicine 08/12/22 documented as of this encounter
--- OUTSIDE RECORDS SUMMARY | 2024-10-26 10:57 | XMS_ITS | Clinical Summary ---
Author Organization [facility] Address [address] [place] [address] Care Team Providers Care Linen Room Supervisor Name Role Phone Aamir Purcell DO Primary Care Provider [phone] Allergies Active Allergy Reactions Criticality Noted Date [...] 10/07/2019, 07/29/2012 COVID-19 Vaccine (1 - season) 2024 Influenza Vaccine (#1) 2024 , 11/04/2013, 11/04/2013 Respiratory Syncytial Virus Immunization: Risk, 60-74 Risk, or 75+ (1 - 1-dose 75+ series) 2038 Medical Devices Implanted Type Area Charging Crane Operator Device Identifier Shelf Expiration Date Model / Serial / Lot Stent-07/27/2012 Implanted:Qty: 1 on 07/27/2012 Stent Right: Eye [employer] [id number] / [id number] / [id number] Description:Non-clinical son ting has demonstrated that the iStent Trabecular Micro-Bypass Stent (Models [id number] and [id number]) is MR Conditional. A patient with this [...] above, the iStent Trabecular Micro-Bypass Stent (Models [id number] and [id number]) is not expected to produce a clinically significant temperature rise after 15 minutes of continuous scanning. In non-clinical testing, the image artifact caused by the device extends less than 15 mm from the device when imaged with a gradient echo pulse sequence and a 3.0 T MRI system Insurance MEDICARE PART [place] & [place] [address] [facility] Advance Directives For more information, please contact: [phone] Documents on File Type Date Recorded Patient Tray Checker Expl anation Power of Death Clearance Coordinator 05/28/2021 12:09 PM Power of Death Clearance Coordinator 05/28/2021 12:01 PM * Full Code - Unverified (Latest Code Status on File) Date Activated Date Inactivated Comments 05/18/2021 10:06 PM 05/29/2021 7:56 PM Care Teams Linen Room Supervisor Relationship Specialty Start Date End Date Aamir Purcell DO [address] [place] [address] PCP - General Family Medicine 03/28/17
--- OUTSIDE RECORDS SUMMARY | 2024-10-26 10:57 | XMS_ITS | Encounter Summary ---
Author Organization [facility] Address [address] [place] [address] Care Team Providers Care Nut Dehydrator Operator Name Role Phone Aamir Purcell MD Primary Care Provider [phone] Encounter Details Date Type Department Care Team (Late st Contact Info) Description 11/25/2022 Orders Only [facility] 112 [facility] 110 [place] [address] A, Unknown Practice [address] [place] [address] Social History Tobacco Use Types Packs/Day Years [...] 12/27/2024 1:45 PM EST Office Visit [facility] Eye [address] [place] [address] Adilson Johnson, DO [address] [place] [address] documented as of this encounter Procedures Procedure Name Priority Date/Time Associated Diagnosis Comments SCANNED LABS Routine 11/23/2022 9:24 AM EDT documented in this encounter Results * SCANNED LABS (11/23/2022 9:24 AM EDT) us Unknown Practice A LAB CHG PERFORMABLES Final Re sult documented in this encounter Visit Diagnoses Not on filedocumented in this encounter Care Teams Nut Dehydrator Operator Relationship Specialty Start Date End Date Aamir Purcell MD PCP - General Family Medicine 08/12/22 documented as of this encounter
--- OUTSIDE RECORDS SUMMARY | 2024-10-26 10:57 | XMS_ITS | Clinical Summary ---
Author Organization [facility] Address [address] [place] [address] Phone Care Team Providers Care Wallpaperer Name Role Phone Physician, Pcp Unknown Primary [...] Medical History Date Comments Diabetes mellitus (CMS/[facility] V24, [facility] V28) Social History Tobacco Use Types Packs/Day [...] - Risk 60-74 years 1-dose series) 2023 Depression Screening 02/18/2024 COVID-19 Vaccine ( - season) 2024 Influenza Vaccine (#1) 2024 0, 11/04/2013, 11/04/2013 [...] LAB CHEMISTRY METHOD 04/06/2021 5:31 AM EST [facility] Potassium 4.2 3.6 - 5.1 mmol/L LAB CHEMISTRY METHOD 04/06/2021 5:31 AM EST [facility] Chloride 106 98 - 107 mmol/L LAB CHEMISTRY METHOD 04/06/2021 5:31 AM EST [facility] CO2 21(L) 22 - 32 mmol/L LAB CHEMISTRY METHOD 04/06/2021 5:31 AM EST [facility] Anion Gap 9 6 - 18 LAB CHEMISTRY METHOD 04/06/2021 5:31 AM [facility] Glucose 192(H) 70 - 99 mg/dL LAB CHEMISTRY METHOD 04/06/2021 5:31 AM [facility] BUN 22(H) 8 - 20 mg/dL LAB CHEMISTRY METHOD 04/06/2021 5:31 AM [facility] Creatinine 1.06 0.60 - 1.30 mg/dL LAB CHEMISTRY METHOD 04/06/2021 5:31 AM [facility] eGFR 58 mL/min/1. 73m2 LAB CHEMISTRY METHOD 04/06/2021 5:31 AM [facility] BUN/Creatinine Ratio 20.8(H) 12.0 - 20.0 LAB CHEMISTRY METHOD 04/06/2021 5:31 AM [facility] Calcium 9.0 8.9 - 10.3 mg/dL LAB CHEMISTRY METHOD 04/06/2021 5:31 AM [facility] AST (SGOT) 14(L) 15 - 41 unit/L LAB CHEMISTRY METHOD 04/06/2021 5:31 AM [facility] ALT (SGPT) 11 7 - 52 unit/L LAB CHEMISTRY METHOD 04/06/2021 5:31 AM [facility] Alkaline Phosphatase 88 32 - 91 unit/L LAB CHEMISTRY METHOD 04/06/2021 5:31 AM [facility] Total Protein 6.3 6.1 - 7.9 g/dL LAB CHEMISTRY METHOD 04/06/2021 5:31 AM [facility] Albumin 3.4(L) 3.5 - 4.8 g/dL LAB CHEMISTRY METHOD 04/06/2021 5:31 AM [facility] Total Bilirubin 0.4 0.3 - 1.2 mg/dL LAB CHEMISTRY METHOD 04/06/2021 5:31 AM EST [facility] Blood Venous blood specimen / Unknown Venipuncture / Unknown 04/06/2021 4:22 AM EST 04/06/2021 5:03 AM EST Sin Carlson MD LAB BLOOD ORDERABLES Final Resul t [facility] [address] [place] [address] * (ABNORMAL) Hemoglobin A1c (04/06/2021 12:42 AM EST) Hemoglobin A1C 11.8(H) <=5.6 % LAB CHEMISTRY METHOD 04/06/2021 12:31 PM EST [facility] Comment: HbA1c values of 5.7-6.4 percent indicate an increased risk for developing diabetes mellitus. HbA1c values greater than or equal to 6.5 percent are diagnostic of diabetes mellitus. For diagnosis of diabetes in individuals without unequivocal hyperglycemia, results should be confirmed by repeat testing. Mean Bld Glu Estim. 292 mg/dL LAB CHEMISTRY METHOD 04/06/2021 12:31 PM EST [facility] Blood Venous blood specimen / Unknown Venipuncture / Unknown 04/06/2021 12:42 AM EST 04/06/2021 12:50 AM EST Sin Carlson MD LAB BLOOD ORDERABLES Final Resul t [facility] [address] [place], [place] [id number] from Last 3 Months or Most Recently Relevant to Health Maintenance Insurance MEDICARE [facility] Advance Directives * Full Code (Latest [...] currently active code status orders. Care Teams Wallpaperer Relationship Specialty Start Date End Date Physician, Pcp Unknown PCP - General 04/05/21
--- OUTSIDE RECORDS SUMMARY | 2024-10-26 10:57 | XMS_ITS | Clinical Summary ---
Author Organization [facility] Address [address] [place], [place] [address] Care Team Providers Care Foam Rubber Molder Name Role Phone Basilia Tobias Lars PAL[place] [...] PM EST [facility] Comment: [place] [employer] guidelines indicate that patients with HgbA1c in the range 5.7-6.4% are at increased risk for development of diabetes, and intervention by lifestyle modification may be beneficial. HgbA1c greater or equal to 6.5% is considered diagnostic of diabetes. Estimated Average Glucose >240 mg/dL 03/23/2015 10:11 PM EST [facility] Comment: eAG: (Estimated average glucose) is a calculated value from HgbA1c and is retail sales representative of the average blood glucose level in the last 2-3 month period. Blood specimen (specimen) WHOLE BLOOD SPECIMEN / Unknown 03/23/2015 2:21 PM EST 03/23/2015 2:26 PM EST [facility] Final Result [facility] [address] [place] [address] from Last 3 Months or Most Recently Relevant to Health Maintenance Insurance MEDICARE Care Teams Foam Rubber Molder Relationship Specialty Start Date End Date Tobias Cui DO PCP - General Family Medicine 02/13/15
--- OUTSIDE RECORDS SUMMARY | 2024-10-26 10:57 | XMS_ITS | Encounter Summary ---
Author Organization [facility] Address [address] [place] [address] Care Team Providers Care Shipping Clerk Packing Name Role Phone Aamir Purcell Primary Care Provider [phone] Hoang Gilliam DPM Unavailable [phone] SOMMER DO, W. 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 (HCC) Hoang Gilliam DPM [address] [place] [address] Phone: tel: fax: [facility] [address], 3rd [place] [address] Phone: tel: fax: Referral ID Status Reason Start Date Expiration Date V isits Requested Visits Authorized [id number] Closed Specialty Services Required/Herminia ent's Best Interest 03/28/2017 03/28/2018 1 1 Encounter Details Date Type Department Care Team (Latest Contact Info) Description 03/28/2017 Transcribe Orders [facility] [address], 3rd [place] [address] Hoang Gilliam, MARK [address] [place] [address] PVD (peripheral vascular disease) (Primary Dx); 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); Atherosclerosis of picayune arteries of left leg with ulceration of [...] Without Evidence Of Necrosis (Hcc) 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 (HCC) 1 Occurrences starting 03/28/2017 until 03/28/2018 documented as of this encounter Visit Diagnoses Diagnosis PVD (peripheral vascular disease)- Primary Unspecified peripheral vascular disease 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 (HCC) documented in this encounter Additional Health Concerns Infection Onset Date Last Indicated Resolved Time COVID-19 Suspected 05/18/2021 05/18/2021 2 7:53 PM EDT COVID-19 Suspected 05/29/2021 05/29/2021 2 12:26 PM EDT documented as of this encounter Care Teams Shipping Clerk Packing Relationship Specialty Start Date End Date Aamir Purcell DO [address] [place] [address] PCP - General Family Medicine 03/28/17 Hoang Gilliam DPM [address] [place] [address] Consulting Physician Podiatry 04/07/17 05/17/21 Reji Miramontes III, DO [address] [place] [address] Consulting Physician Vascular Surgery 04/07/17 05/17/21 documented as of this encounter
--- OUTSIDE RECORDS SUMMARY | 2024-10-26 10:57 | XMS_ITS | Clinical Summary ---
Author Organization [facility] Address [address] [place] [address] Care Team Providers Care Payroll Auditor Name Role Phone Aamir Purcell MD Primary Care Provider [phone] Allergies Active Allergy Reactions Criticality Noted Date Comments Cephalexin Hives,Itching,Unknow n,Rash,Swelling High 12/02/2011 burning Moxifloxacin Itching,Unknown,Rash ,Swelling High 12/02/2011 Abdominal pain Peg 1337-Bqv-Qjjyt-Nacl-Mello ulf High 10/28/2016 Tapentadol Unknown High 02/04/2014 [...] at the same time Active HYDROcodone-felicita taminophen ([place]) 5-325 MG tablet Take 1 tablet by [...] Description 09/27/2024 1:15 PM EDT Office Visit [facility] [address] [email or web address] [address] [place] [address] Adilson Johnson, Primary open angle glaucoma (POAG) of both eyes, moderate stage (Primary Dx); 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 [address] [place] [address] Ramona Campuzano PA Aerobic culture, RESULT 08/27/2024 10:30 AM EDT Office Visit [facility] [place] [facility] [address] [place] [address] Ramona Campuzano PA Other atopic dermatitis (Primary Dx); Traumatic ulcer of left foot, unspecified ulcer stage (HCC); Impetigo 08/27/2024 Orders Only [facility] External Department Unsolicited Ramona Campuzano PA 08/27/[address] [facility] [address] [place] [address] Ramona Campuzano PA 08/27/2024 Travel 08/24/2024 Abstract [facility] [place] [facility] [address] [email or web address] [address] [place] [address] Unallocated, Katja Mccauley MD 08/16/2024 Abstract [facility] [place] [facility] [address] [email or web address] [address] [place] [address] Aamir Purcell MD 08/10/2024 Clinisync Result Encounter NOMS External Department Unsolicited Provider, Generic External Data 08/10/2024 Clinisync Result Encounter NOM[facility] External Department Unsolicited Provider, Generic External Data 08/09/2024 [facility] [address] [email or web address] [address] [place] [address] Unallocated, Nomlatosha Mccauley MD from Last 3 [...] 12/27/2024 1:45 PM EST Office Visit [facility] [address] [place] [address] Adilson Johnson DO [address] [place] [address] Procedures Procedure Name Priority Date/Time Associated Diagnosis [...] may be warranted if clinically indicated. (CLSI [id number]) Light growth RESULT 2 Staphylococcus aureus(A) [facility] [...] - 09/06/2024 11:07 AM EDT Performed at: [address] [place] [address], [place] [id number] Pharmacist Per Diem: Angel Jacobs PhD, Phone: [phone] Ramona CESPEDES LAB BLOOD ORDERABLES Final Res ult Performing Organization Address [facility] Co de Phone Number [facility] * (ABNORMAL) Aerobic culture (08/27/2024 12:00 AM EDT) CULTURE, AEROBIC BACTERIA Final report(A) [facility] 08/27/2024 08/27/2024 Narrative [facility] - 09/06/2024 11:07 AM EDT Performed at: 01 - [address] [id number] Pharmacist Per Diem: Angel Jacobs PhD, Phone: [phone] Ramona CESPEDES LAB MICROBIOLOGY - GENERAL ORD ERABLES Final Result Performing Organization Address [facility] de Phone Number [facility] * SEGMENTAL BLOOD PRESSURE (08/10/2024 3:48 PM EDT) Anatomical Region Laterality Modality Radiographic Kathie ging 08/10/2024 3:48 PM EDT Narrative 08/10/2024 10:07 [place] [address] Cardiology Report Signed Patient: CLEO GEORGES MR#: [id number] : 1965 Acct:[id number] Age/Sex: 59 / F ADM Date: 08/10/24 Loc: CARD Attending Dr: Kailee CESPEDES Ordering Physician: Kailee Lopez Date of Service: 08/10/24 Procedure(s): CA segmental UE or LE SAMANTHA Accession Number(s): [id number] cc: MAHIN BERNAL ; Kailee Lopez [facility] Test Date: 2024-08-10 Pat Name: CLEO GEORGES Department: Room: - Gender: Female Services Executive: : 1965 Requested By: Kailee Lopez Order Number: [id number] Zack MD: FELIAP ALANIS M.D. Interpretive Statements Summary of the [...] ALANIS Signed By: 08/10/24220608/10/242206 DD/ 1548 TD/TT: Signal Helper: Procedure Note Radiology, Radiologist, MD - 08/10/2024 [place] [address] Cardiology Report Signed Patient: CLEO GEORGES LMR#: [id number] : 1965Acct:[id number] Age/Sex: 59 / FADM Date: 08/10/24 Loc: CARD Attending Dr: Kailee CESPEDES Ordering Physician: Kailee Lopez Date of Service: 08/10/24 Procedure(s): CA segmental UE or LE SAMANTHA Accession Number(s): [id number] cc: MAHIN BERNAL [facility] Test Date: 2024-08-10 Pat Name: CLEO GEORGES Department: Room: - Gender: Female Services Executive: : 1965 Requested By: Kailee Lopez Order Number: [id number] Zack MD: FELIPA ALANIS M.D. Interpretive Statements [...] FELIPA ALANIS Signed By:08/10/24220608/10/242206 DD/ 154 TD/TT: Signal Helper: us Generic External Data Provider IMG XR PROCEDURES Final Result * XR FOOT SAMANTHA MIN 3 VIEWS (08/10/2024 12:04 PM EDT) Anatomical Region Laterality Modality Other 08/10/2024 12:0 4 PM EDT Narrative 08/10/2024 12:07 PM EDT [address] [address] XRay Report Signed Patient: CLEO GEORGES MR#: [id number] : 1965 Acct:[id number] Age/Sex: 59 / F ADM Date: 08/10/24 Loc: CARD Attending Dr: Kailee CESPEDES Ordering Physician: Kailee Lopez Date of Service: 08/10/24 Procedure(s): XR foot SAMANTHA min 3V Accession Number(s): [id number] cc: MAHIN BERNAL ; Kailee Lopez [address] [address] Patient Name: CLEO GEORGES MRN: [id number] date: 1965 Sex: F Assigned Patient Location: CARD Current Patient Location: CARD Accession/Order Number: [id number] Exam Date: 08/10/2024 11:59 Report Date: 08/10/2024 [...] Crews M.D. 08/10/2024 12:04 PM Dictation Location: [place] [address] Electronically authenticated by: [id number] Y Date: 08/10/2024 12:04 Dictated By: Misa Crews M.D. Signed By: 08/10/24 1207 DD/ 1204 TD/TT: Signal Helper: Procedure Note Radiology, Radiologist, - 08/10/2024 [place] [address] XRay Report Signed Patient: CLEO GEORGES LMR#: [id number] : 1965Acct:[id number] Age/Sex: 59 / FADM Date: 08/10/24 Loc: CARD Attending Dr: Kailee CESPEDES Ordering Physician: Kailee Lopez Date of Service: 08/10/24 Procedure(s): XR foot SAMANTHA min 3V Accession Number(s): [id number] cc: MAHIN BERNAL ; Kailee Lopez [place] [address] Patient Name: CLEO GEORGES MRN: [id number] date: 1965 Sex: F Assigned Patient Location: CARD Current Patient Location: CARD Accession/Order Number: [id number] Exam Date: 08/10/2024 11:59 Report Date: 08/10/2024 [...] Crews M.D. 08/10/2024 12:04 PM Dictation Location: [place] [address] Electronically authenticated by: [id number] Y Date: 2:04 Dictated By: Misa Crews M.D. Signed By:08/10/24 1207 DD/ 1204 TD/TT: Signal Helper: Generic External Data Provider [facility] Final Result from Last 3 Months Insurance MEDICARE [facility] [place] Care Teams Payroll Auditor Relationship Specialty Start Date End Date Aamir Purcell MD PCP - General Family Medicine 08/12/22
--- OUTSIDE RECORDS SUMMARY | 2024-10-26 10:57 | XMS_ITS | Encounter Summary ---
Author Organization [facility] Address [address] [place] [address] Care Team Providers Care Financial Accounting Analyst Name Role Phone Aamir Purcell MD Primary Care Provider [phone] Encounter Details Date Type Department Care Team (Late st Contact Info) Description 08/09/2024 Abstract [facility] [address] [facility] [address] [place] [address] Unallocated, Noms MD Gar[facility] [address] [place] [address] Social History Tobacco Use Types Packs/Day Years [...] 12/27/2024 1:45 PM EST Office Visit [facility] [address] [place] [phone] Adilson Johnson, DO [address] [place] [address] documented as of this encounter Visit Diagnoses Not on filedocumented in this encounter Care Teams Financial Accounting Analyst Relationship Specialty Start Date End Date Aamir Purcell MD PCP - General Family Medicine 08/12/22 documented as of this encounter
--- OUTSIDE RECORDS SUMMARY | 2024-10-26 10:58 | XMS_ITS | Encounter Summary ---
Author Organization [facility] Address [address] [place] [address] Care Team Providers Care Carpet Cleaning Technician Name Role Phone Aamir Purcell MD Primary Care Provider [phone] Encounter Details Date Type Department Care Team (Late st Contact Info) Description 04/29/2024 Abstract [facility] 112 [facility] 110 [place] [address] Unallocated, Noms MD Garrick [address] [place] [address] Social History Tobacco Use Types Packs/Day Years [...] 12/27/2024 1:45 PM EST Office Visit [facility] [address] [place] [phone] Adlison Johnson, DO [address] [place] [address] documented as of this encounter Visit Diagnoses Not on filedocumented in this encounter Care Teams Carpet Cleaning Technician Relationship Specialty Start Date End Date Aamir uPrcell MD PCP - General Family Medicine 08/12/22 documented as of this encounter
--- OUTSIDE RECORDS SUMMARY | 2024-10-26 10:58 | XMS_ITS | Encounter Summary ---
Author Organization [facility] Address [address] [place] [address] Care Team Providers Care Tar Processing Technician Name Role Phone Aamir Purcell MD Primary Care Provider [phone] Encounter Details Date Type Department Care Team (Late st Contact Info) Description 05/05/2024 Abstract [facility] 112 [facility] 110 [place] [address] Unallocated, Noms MD Garrick [address] [place] [address] Social History Tobacco Use Types Packs/Day Years [...] 12/27/2024 1:45 PM EST Office Visit [facility] [address] [place] [phone] Adilson Johnson, DO [address] [place] [address] documented as of this encounter Visit Diagnoses Not on filedocumented in this encounter Care Teams Tar Processing Technician Relationship Specialty Start Date End Date Aamir Purcell MD PCP - General Family Medicine 08/12/22 documented as of this encounter
--- OUTSIDE RECORDS SUMMARY | 2024-10-26 10:58 | XMS_ITS | Encounter Summary ---
Author Organization [facility] Address [address] [place] [address] Care Team Providers Care Psychiatry Instructor Name Role Phone Aamir Purcell MD Primary Care Provider Encounter Details Date Type Department Care Team (Late st Contact Info) Description 04/19/2024 Abstract [facility] [address] [place] [phone] Unallocated, Noms MD Garrick [address] [place] [address] Social History Tobacco Use Types Packs/Day Years [...] 12/27/2024 1:45 PM EST Office Visit [facility] [address] [place] [phone] Adilson Johnson, DO [address] [place] [address] documented as of this encounter Visit Diagnoses Not on filedocumented in this encounter Care Teams Psychiatry Instructor Relationship Specialty Start Date End Date Aamir Purcell MD PCP - General Family Medicine 08/12/22 documented as of this encounter
--- OUTSIDE RECORDS SUMMARY | 2024-10-26 10:58 | XMS_ITS | Encounter Summary ---
Author Organization [facility] Address [address] [place] [address] Care Team Providers Care Gasoline Engine Assembler Name Role Phone Aamir Purcell MD Primary Care Provider [phone] Encounter Details Date Type Department Care Team (Late st Contact Info) Description 04/09/2024 Abstract [facility] 112 [facility] 110 [place] [address] Unallocated, Noms MD Garrick [address] [place] [address] Social History Tobacco Use Types Packs/Day Years [...] 12/27/2024 1:45 PM EST Office Visit [facility] [address] [place] [phone] Adilson Johnson, DO [address] [place] [address] documented as of this encounter Visit Diagnoses Not on filedocumented in this encounter Care Teams Gasoline Engine Assembler Relationship Specialty Start Date End Date Aamir Purcell MD PCP - General Family Medicine 08/12/22 documented as of this encounter
--- OUTSIDE RECORDS SUMMARY | 2024-10-26 10:58 | XMS_ITS | Encounter Summary ---
Author Organization [facility] Address [address] [place] [address] Care Team Providers Care Outside Sales Executive Name Role Phone Aamir Purcell MD Primary Care Provider [phone] Encounter Details Date Type Department Care Team (Late st Contact Info) Description 06/08/2024 Abstract [facility] [address] [facility] 110 [place] [address] Unallocated, Noms MD Garrick [address] [place] [address] Social History Tobacco Use Types Packs/Day Years [...] 12/27/2024 1:45 PM EST Office Visit [facility] Eye [address] [place] [phone] Adilson Johnson, DO [address] [place] [address] documented as of this encounter Visit Diagnoses Not on filedocumented in this encounter Care Teams Outside Sales Executive Relationship Specialty Start Date End Date Aamir Purcell MD PCP - General Family Medicine 08/12/22 documented as of this encounter
--- OUTSIDE RECORDS SUMMARY | 2024-10-26 10:58 | XMS_ITS | Encounter Summary ---
Author Organization [facility] Address [address] [place] [address] Care Team Providers Care Engine Tester Name Role Phone Aamir Purcell MD Primary Care Provider [phone] Encounter Details Date Type Department Care Team (Late st Contact Info) Description 05/10/2024 Abstract [facility] 112 [facility] 110 [place] [address] Unallocated, Noms MD Garrick [address] [place] [address] Social History Tobacco Use Types Packs/Day Years [...] 12/27/2024 1:45 PM EST Office Visit [facility] [address] [place] [phone] Adilson Johnson, DO [address] [place] [address] documented as of this encounter Visit Diagnoses Not on filedocumented in this encounter Care Teams Engine Tester Relationship Specialty Start Date End Date Aamir Purcell MD PCP - General Family Medicine 08/12/22 documented as of this encounter
--- OUTSIDE RECORDS SUMMARY | 2024-10-26 10:58 | XMS_ITS | Encounter Summary ---
Author Organization [facility] Address [address] [place] [address] Care Team Providers Care Appeals Board Referee Name Role Phone Aamir Purcell MD Primary Care Provider [phone] Encounter Details Date Type Department Care Team (Late st Contact Info) Description 06/28/2024 Abstract [facility] 112 [facility] 110 [place] [address] Unallocated, Noms MD Garrick [address] [place] [address] Social History Tobacco Use Types Packs/Day Years [...] 12/27/2024 1:45 PM EST Office Visit [facility] [address] [place] [phone] Adilson Johnson, DO [address] [place] [address] documented as of this encounter Visit Diagnoses Not on filedocumented in this encounter Care Teams Appeals Board Referee Relationship Specialty Start Date End Date Aamir Purcell MD PCP - General Family Medicine 08/12/22 documented as of this encounter
--- OUTSIDE RECORDS SUMMARY | 2024-10-26 10:58 | XMS_ITS | Encounter Summary ---
Author Organization [facility] Address [address] [place] [address] Care Team Providers Care Ekg Manager Name Role Phone Aamir Purcell MD Primary Care Provider [phone] Encounter Details Date Type Department Care Team (Late st Contact Info) Description 03/11/2024 Abstract [facility] 112 [facility] 110 [place] [address] Unallocated, Noms MD Garrick [address] [place] [address] Social History Tobacco Use Types Packs/Day Years [...] 12/27/2024 1:45 PM EST Office Visit [facility] [address] [place] [phone] Adilson Johnson, DO [address] [place] [address] documented as of this encounter Visit Diagnoses Not on filedocumented in this encounter Care Teams Ekg Manager Relationship Specialty Start Date End Date Aamir Purcell MD PCP - General Family Medicine 08/12/22 documented as of this encounter
--- OUTSIDE RECORDS SUMMARY | 2024-10-26 10:58 | XMS_ITS | Encounter Summary ---
Author Organization [facility] Address [address] [place] [address] Care Team Providers Care Information Technology Auditor Name Role Phone Aamir Purcell MD Primary Care Provider Encounter Details Date Type Department Care Team (Late st Contact Info) Description 04/19/2024 Abstract [facility] [address] [place] [phone] Unallocated, Noms MD Garrick [address] [place] [address] Social History Tobacco Use Types Packs/Day Years [...] 12/27/2024 1:45 PM EST Office Visit [facility] [address] [place] [phone] Adilson Johnson, DO [address] [place] [address] documented as of this encounter Visit Diagnoses Not on filedocumented in this encounter Care Teams Information Technology Auditor Relationship Specialty Start Date End Date Aamir Purcell MD PCP - General Family Medicine 08/12/22 documented as of this encounter
--- OUTSIDE RECORDS SUMMARY | 2024-10-26 10:58 | XMS_ITS | Encounter Summary ---
Author Organization [facility] Address [address] [place] [address] Care Team Providers Care Sample Carrier Name Role Phone Aamir Purcell MD Primary Care Provider [phone] Encounter Details Date Type Department Care Team (Late st Contact Info) Description 05/03/2024 Abstract [facility] [address] [facility] [address] [place] [address] Unallocated, Noms MD Garrick [address] [place] [address] Social History Tobacco Use Types Packs/Day Years [...] System Eye [address] [place] [phone] Adilson Johnson, DO [address] [place] [address] documented as of this encounter Visit Diagnoses Not on filedocumented in this encounter Care Teams Sample Carrier Relationship Specialty Start Date End Date Aamir Purcell MD PCP - General Family Medicine 08/12/22 documented as of this encounter
--- OUTSIDE RECORDS SUMMARY | 2024-10-26 11:12 | XMS_ITS | CCD ---
Author Organization [facility] CliniSysd Care Team Providers Care Director Of Pediatric Rehabilitation Name Role Phone Neri Santa Unavailable Pili [...] Attending Unavaila Neri Shah Primary Care Provider [phone] Pili Gilliam Unavailable Reji Miramontes Unavailable Neri Santa Primary Care Provider Pili Gilliam Unavailable Craske, W. Don Unavailable HOUSE, NERI P [...] Care Provider Mane FLORES, Pili Juárez Unavailable Fe SOMMER, Reji PALACIOS Don Unavailable [...] Attending Unavailabl e PHYSICIAN PHYSICIAN, PCP PCP UNKNOWN~[phone] Primary Care Unavailable BANNING, KIKE Consulting Unavailable PRECIOUS, BLASE Attending Unavailable PRECIOUS, BLASE Admitting Unavailable BANNING, KIKE Consulting Unavailable BANNING, KIKE Consulting Unavailable BAUERLE, CLARISA Consulting Unavailable BAUERLE, CLARISA Consulting Unavailable BAUERLE, CLARISA Consulting Unavailable VAISHALI ERAZO Referring Unavailable PHYSICIAN PHYSICIAN, PCP PCP UNKNOWN~[phone] Primary Care Unavailable House DO, Neri P Primary Care Provider David VIVEROS, Skylar Rizo Unavailable [phone] Kartik Mejia MD Unavailable Tisha Arriaga MD Unavailable Luis Miguel Kaur MD Unavailable Lucas MERCADO, Chris A Unavailable Kartik Mejia MD Unavailable [phone] HOUSE, NERI P Primary Care Unavailable TORI HART Attending Unavailable MARIELA AHMADI, JEF Admitting Unavailable HOUSE, NERI P Primary Care Unavailable TORI HART Referring Unavailable HOUSE, NERI P Primary Care Unavailable ADRIANE, NBA TRIMBLE Admitting Unavaila ble GRIFFIN, MAC STERLING Consulting Unavailable ALAHMADRASHADA Attending Unavailable House DO, Sr Neri P Primary Care Provider [phone] House DO, Sr Neri P Primary Care [...] Unavailable Ganga Savage MD Primary Care Provider [phone] GANGA SAVAGE Primary Care Unavailable ALISIA, ALISIA VAISHALI Referring Unavailable ALISIA, ALISIA VAISHALI Referring Unavailable JANETTE GANGA E Primary Care Unavailable ALISIA, ALISIA VAISHALI Referring Unavailable JANETTE, GANGA E Primary Care Unavailable [place] Neri VIVEROS Primary Care Provider Jami Onofre [...] sources) Cephalexin Drug Allergy 04-07-19 18 Itching [facility] Opioid Agonists (3 sources) tapentadol Drug Allergy 04-07-19 18 [facility] Quinolones (antibiotic) (3 sources) moxifloxacin Drug Allergy 04-07-19 18 Itching, Swelling, Rash, Other (See Comments) [facility] (20 sources) cephalexin; Translations: [CEPHALEXIN] Propensity to adverse reactions to drug 12-02-19 12 Itching, Rash, Hives, Unknown, Swelling [facility] (20 sources) moxifloxacin; Translations: [MOXIFLOXACIN] Propensity to adverse reactions to drug 12-02-19 12 Itching, Swelling, Rash, Other (See Comments), Unknown [facility] (20 sources) tapentadol; Translations: [TAPENTADOL] Propensity to adverse reactions to drug 04-07-19 18 Unknown [facility] (20 sources) polyethylene glycol 3350 / potassium chloride / sodium bicarbonate / sodium chloride / sodium sulfate Drug Allergy 10-29-19 17 [facility] Work Phone: (20 sources) tapentadol Drug Allergy 10-31-19 16 Other (See Comments) [facility] Work Phone: (3 sources) Cephalexin; Translations: [Keflex] Drug Allergy 06-23-19 10 [facility] Repository (3 sources) moxifloxacin; Translations: [Avelox] Drug Allergy 06-23-19 10 [facility] (3 sources) tapentadol; Translations: [Nucynta] Drug Allergy 06-30-19 13 [facility] Repository (1 source) Bacitracin / Neomycin / Polymyxin B Drug Allergy 06-23-19 10 [facility] Repository (1 source) Calcium oxide Drug Allergy 06-23-19 10 [facility] (1 source) POLYETHYLENE GLYCOL 3350 Drug Allergy 08-21-19 22 [facility] Rep[facility] (1 source) Sulfamethoxazole / Trimethoprim Drug Allergy 06-23-19 10 [facility] (1 source) fentaNYL; Translations: [fentaNYL] Drug Allergy [facility] Repository (1 source) POLYETHYLENE GLYCOL 3350 / Potassium Chloride / Sodium Bicarbonate / Sodium Chloride / sodium sulfate; Translations: [GoLYTELY] Drug Allergy [facility] Repository (1 source) Shellfish; Translations: [shellfish] Propensity to adverse reactions (disorder) [facility] Repository (1 source) Shrimp product; Translations: [Shrimp] Propensity to adverse reactions (disorder) [facility] Repository (9 sources) Tapentadol hydrochloride Allergy [...] Start: 07-15-2021 take 2 tablets by mo [facility] once daily calcium carbonate-vitamin D3 (CALTRATE) [...] 08/19/2023 08/18/2024 Active [employer] [facility] (5 sources) Start: 01-05-2018 End: 01-05-2018 [...] UNIT/ML Solution Pen-injector injection 3 samples given--Lot [id number], exp 10/2021 3 Prefilled Pen/Syringe 0 06/23/2020 [...] needed 5-40 mL, IntraVENous, PRN, Starting on [facility] 06/28/21 at 2107, Until Discontinued, Line Care, [...] Start: 03-05-2018 take 1 capsule by mo [facility] once daily VITAMIN B COMPLEX-C CAPS [...] 20 mg/ml oral suspension (1 source) Uncompetitive T-atzflz-D-aspartate Receptor Antagonist, Sigma-1 Agonist Start: 07-14-2021 End: [...] mg docusate sodium 50 mg / sennosides, 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 8.6 mg oral tablet (1 source) Start: [...] override Jess Ventura: cabinet override [employer] (5 sources) Start: 04-21-2017 End: 01-07-2018 Continuous Blood Gluc Manager Documentation (FREESTYLE JUANPABLO READER) Device Indications: Type 2 diabetes mellitus with diabetic polyneuropathy, without long-term current use of insulin Apply 1 Device topically As directed. Use to download subcutaneous glucose monitor data at least four times daily 1 Device 3 04/21/2017 01/07/2018 Discontinued Start: 04-21-2017 Continuous Blo od Gluc Manager Documentation (FREESTYLE JUANPABLO READER) Device Indications: Type 2 [...] KwikPen) 100 UNIT/ML Solution Pen-injector Sample given [id number], 3 mL 0 09/13/2020 09/28/2020 Discontinued (Therapy [...] or SBP <120 lactobacillus rhamnosus gg 1 [id number] unt oral capsule (6 sources) Start: 07-11-2021 [...] 08-04-2021 30 mL, Per NG tube, DAILY WA N, Starting on Fri08/04/21 at 0800, Until [...] mL/hr, Administer over 2 Hours, ONCE, On [facility] 06/28/21 at 1445, For 1 dose Recommended [...] F irst dose (after last modification) on [facility] 06/28/21 at 1615, Until Discontinued Antimicrobial Indications: Central Nervous System Infection Administer as slow IV Push over 5 mins Reconstitute 2 g vials with 19.2 mL of designated diluent to produce a 100mg/mL solution Start: 06-28-2021 End: 06-28-2021 500 mg, IntraVENous, at 1,00 0 mL/hr, Administer over 60 Minutes, ONCE, On [facility] 06/28/21 at 1445, For 1 dose Use 0.22 micron in-line filter. (1 source) Start: 06-28-2021 16 g (4 tablet ), Oral, PRN, Starting on [facility] 06/28/21 at 1616, Until Discontinued, Low blood [...] mL/hr, Administer over 121 Minutes, ONCE, On [facility] 07/07/21 at 0600, For 1 dose Start: [...] Coronary atherosclerosis; Translations: [Atherosclerotic heart disease of [place] coronary artery without angina pectoris] Onset: 3 [...] aftercare (20 sources) Patient encounter status; Translations: [long term care social worker (current) use of non-steroidal anti-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 (NSAID)] Onset: 8 01-22-2018 Episodic Other aftercare (1 source) Long-term current use of antibiotic; Translations: [long term care social worker (current) use of antibiotics] Episodic Other RABBLE FURNACE TENDER infection and poliomyelitis (9 sources) Abscess in [...] Interpretation Reference Range Facility Perimetry studyon 09-27-2024 [facility] Radiology Study observation (narrative) [facility] Aerobic cultureon 09-06-2024 Microorganism or agent identified Nom (Unsp spec) Final report Abnormal [facility] No Panel Informationon 09-06 Interpretation and review of laboratory results Abnormal [facility] Performed at: - Lab[address] [id number] [place] Baster Hand: Angel Jacobs PhD, Phone: [phone] [facility] RESULTon 09-06-2024 Bacteria identified Cx Nom (Unsp spec) Comment Abnormal [facility] Comment on above: Enterobacter cloacae complex Some Enterobacterales may develop resistance during therapy with third-generation cephalosporins. This resistance is most commonly seen with Citrobacter freundii complex, Enterobacter cloacae complex, and Klebsiella aerogenes. Isolates that initially test susceptible may become resistant within a few days after initiation of therapy. Testing subsequent isolates may be warranted if clinically indicated. (CLSI U629-Bl36) Light growth Bacteria identified Cx Nom (Unsp spec) Staphylococcus aureus Abnormal [facility] Comment on above: Based on [...] Heavy growth Other Antibiotic [Susc] Comment N [facility] Comment on above: S = Susceptible; I [...] Tobramycin S Trimethoprim/Sulfa S S Vancomycin S [facility] SEGMENTAL BLOOD PRESSUREon 0 08-10-2024 [place] [address] Cardiology Report Signed Patient: MEG GEORGES MR#: [id number] : 1965 Acct:[id number] Age/Sex: 59 / F ADM Date: 08/10/24 Loc: CARD Attending Dr: Kailee CESPEDES Ordering Physician: Kailee Lopez Date of Service: 08/10/24 Procedure(s): CA segmental UE or LE SAMANTHA Accession Number(s): [id number] cc: MAHIN BERNAL ; Kailee Lopez [facility] Test Date: 2024-08-10 Pat Name: MEG GEORGES Department: Room: - Gender: Female Residence Life Director: : 1965 Requested By: Kailee Lopez Order Number: [id number] Reading MD: FELIPA ALANIS M.D. Interpretive Statements [...] ALANIS Signed By: 08/10/24220608/10/242206 DD/ 1548 TD/TT: Supervisor Frame Sample And Pattern: [facility] Radiology, Radiologist, MD - 08/10/2024 [place] [address] Cardiology Report Signed Patient: MEG GEORGES MR#: [id number] : 1965 Acct:[id number] Age/Sex: 59 / F ADM Date: 08/10/24 Loc: CARD Attending Dr: Kailee Lopez PA Ordering Physician: Kailee Lopez Date of Service: 08/10/24 Procedure(s): CA segmental UE or LE SAMANTHA Accession Number(s): [id number] cc: MAHIN BERNAL ; Kailee Lopez [facility] Test Date: 2024-08-10 Pat Name: MEG GEORGES Department: Room: - Gender: Female Residence Life Director: : 1965 Requested By: Kailee Lopez Order Number: [id number] Reading MD: FELIPA ALANIS M.D. Interpretive Statements [...] ALANIS Signed By: 08/10/24220608/10/242206 DD/ 1548 TD/TT: Supervisor Frame Sample And Pattern: [facility] Radiology Study observation (narrative) [facility] SEGMENTAL BLOOD PRESSUREOrde red By: Radiologist Radiology on 08-10-2024 [facility] Work Phone: XR FOOT SAMANTHA MIN [address] V[address] [address] XRay Report Signed Patient: MEG GEORGES MR#: [id number] : 1965 Acct:[id number] Age/Sex: 59 / F ADM Date: 08/10/24 Loc: CARD Attending Dr: Kailee CESPEDES Ordering Physician: Kailee Lopez Date of Service: 08/10/24 Procedure(s): XR foot SAMANTHA min 3V Accession Number(s): [id number] cc: MAHIN BERNAL ; Kailee Lopez [place] [address] Patient Name: MEG GEORGES MRN: [id number] date: 1965 Sex: F Assigned Patient Location: CARD Current Patient Location: CARD Accession/Order Number: [id number] Exam Date: 08/10/2024 11:59 Report Date: 08/10/2024 [...] Crews M.D. 08/10/2024 12:04 PM Dictation Location: [place] [address] Electronically authenticated by: [id number] Y Date: 08/10/2024 12:04 Dictated By: Misa Crews M.D. Signed By: 08/10/24 1207 DD/ 1204 TD/TT: Supervisor Frame Sample And Pattern: [facility] Radiology, Radiologist, MD - 08/10/[address] [address] XRay Report Signed Patient: MEG GEORGES MR#: [id number] : 1965 Acct:[id number] Age/Sex: 59 / F ADM Date: 08/10/24 Loc: CARD Attending Dr: Kailee CESPEDES Ordering Physician: Kailee Lopez Date of Service: 08/10/24 Procedure(s): XR foot SAMANTHA min 3V Accession Number(s): [id number] cc: MAHIN BERNAL ; Kailee Lopez The [place] [id number] Patient Name: MEG GEORGES MRN: [facility]:[id number] date: 1965 Sex: F Assigned Patient Location: CARD Current Patient Location: CARD Accession/Order Number: [id number] Exam Date: 08/10/2024 11:59 Report Date: 08/10/2024 [...] Crews M.D. 08/10/2024 12:04 PM Dictation Location: [place] [address] Electronically authenticated by: [id number] Y Date: 08/10/2024 12:04 Dictated By: Misa Crews M.D. Signed By: 08/10/24 1207 DD/ 1204 TD/TT: Supervisor Frame Sample And Pattern: [facility] Radiology Study observation (narrative) [facility] XR FOOT SAMANTHA MIN 3 VIEWSOrder ed By: Radiologist Radiology on 08-10-2024 [facility] Work Phone: Ophthalmic OCT panelon 06-30 [facility] Right Eye Images reviewed and comparison made to baseline, Images reviewed. To assess optic nerve function and for use in future follow-up. Reliability: good and adequate. Left Eye Images reviewed and comparison made to baseline, Images reviewed. To assess optic nerve function and for use in future follow-up. Reliability: good and adequate. 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 [facility] Ophthalmic OCT panelon 06-28 Radiology Study observation (narrative) [facility] ED Note-Physicianon 04-18-19 ED Note-Physician ED Note-Physician [...] for 3 day(s), 15 tab(s), Refill(s) 0, [id number], 165.1, cm, 04/16/24 10:29:00 EST, [...] made to ensure accuracy, however, inadvertently computerized windows desktop support mistakes may be present. Appropriate healthcare PPE [...] Depression Encepha (more content not included)... Normal [facility] Comment on above: Result [...] MD Transcribed by: SINDY Technologist: HIWOT Win [facility] ED Clinical Summaryon 2024 ED Clinical Summary ED Clinical Summary [place] [id number] ED Clinical Summary Person Information Name: MEG GEORGES Jesusita/[facility] Age: 59 Years : 1965 Sex: Female Language: Maltese PCP: Jami Payne Marital Status: Visit Id: [...] 04/16/2024 14:34:45 04/16/2024 14:34:45 04/16/2024 14:34:45 ADDRESS: [address] [place] [address] [place] [phone] PHYS DOC NOTES: MEDICAL INFORMATION: Prescriptions Given: New Medications [id number], [address] [place], [place] [id number], [phone] acetaminophen-oxycodo ne (Percocet 5 mg-325 mg oral [...] days 04/19/2024 DIAGNOSIS: Back pain; Fall Normal [facility] ED Patient Summaryon 025 ED Patient Summary ED Patient Summary [address] [address] Patient Discharge Instructions Person Information Name: MEG GEORGES Age: 59 Years Arrival Date: 04/16/2024 10:20:31 Discharge Diagnosis: Back pain; Fall Primary Care Physician: Jami Payne Provider Information Primary Provider: Garfield Rodriguez DO Advanced Translation Director:Jeff Clancy PA-C The exam and treatment you received in the Emergency Department were for an urgent problem and are not intended as complete care. It is important that you follow up with a doctor, nurse practitioner, or physician???s district administrative assistant for ongoing care. If your symptoms [...] opioids can be used to help relieve ywbpjqdk-tj-crancx pain and are often prescribed following a [...] be struggling with addiction, tell your health adult live in caregiver and ask for guidance or call [facility]???S National Helpline at 4-400-269-HELP. v S (more content not included)... Normal [facility] Pre-Arrival Noteon 5 Pre-Arrival Note Pre-Arrival Note [facility] Current Date: 04/16/2024 10:22:29 EST Gender: Female Date of : Age: 60 Pre-Arrival Type: EMS ETA: 04/16/2024 10:38:00 EST Primary Care Physician: Presenting Problem: fall Pre-Arrival User: Shirin Miller RN Referring Source: Location: PA Completion Date/Time: 04/16/2024 10:09:00 [facility] Emergency Department Pre-Hospital Report Form Vital Signs: Pre-Hospital Report: Treatment in Route: Response to Treatment: Misc. Issues: Normal [facility] Family Medicine Office/Clini c Noteon 11-25-2023 [...] checking your blood sugars? _? resides at [facility] Do you have any of the following symptoms? Vision problems? no? Lightheadedness? no? Paresthesias, Ulcerations or sores? no? Patient is here for follow up on Thyroid Disease. Do you have any of the following symptoms? Change in energy level? no Weight change? no Heat/cold intolerance? no Hair/skin/nail changes? no Change in bowels? no Last TSH: [facility] to have labs completed prior to [...] 100 mcg (more content not included)... Normal [facility] Comment on above: Result [...] feel free to contact me at extension [phone]. Thank you! Mai Wilkins LPN Clinical Pattern Filer [place] [address] Extension: [phone] [email or web address] From: Jami Payne To: Mai Wilkins; Sent: 11/21/2023 08:41:15 EDT Subject: RE: Pre-Visit Planning Caller Name: MEG GEORGES; Caller Number: Cynthia , M major depressive disorder, recurrent moderate Normal [facility] Family Medicine Office/Clini c Noteon 10-24-2023 Family Medicine Office/Clinic Note Family Medicine Office/Clinic Note CONNOR Gallo is a 58 year old female presenting with D/C'd from [place] on 10/21/23 Is currently at [facility] Care: History: Any previous diagnosis: Diabetes, CKD [...] today to establish care. recently moved to [facility] from [facility] Review of Systems PHQ Score Initial [...] panel ordered 2. Long-term insulin use (Z79.4: jail (current) use of insulin) HGBA1C ordered 3. [...] being treated for this with infusions in [place]. she was warned about the risks of [...] pain, # 30 tab(s), Refills(s) 0, Pharmacy: [facility], 165, cm, 10/24/23 13:15:00 EDT, Height/Length [...] unit(s), SubCu (more content not included)... Normal [facility] Comment on above: Result [...] feel free to contact me at extension [phone]. Thank you! Mai Wilkins LPN Clinical Pattern Filer [place] [address] Extension: [phone] [email or web address] From: Jami Payne To: Mai Wilkins; Sent: 10/24/2023 14:29:06 EDT Subject: RE: Pre-Visit Planning Caller Name: MEG GEORGES; Caller Number: Sallie Pretty sure I addressed all of her diagnosis you had questions on. Thank you Normal [facility] Pre-Visit Planningon 024 Pre-Visit Planning Pre-Visit [...] feel free to contact me at extension [phone]. Thank you! Mai Wilkins LPN Clinical Pattern Filer [address] [address] Extension: [phone] [email or web address] From: Jami Payne To: Mai Wilkins; Sent: 10/23/2023 12:43:08 EDT Subject: RE: Pre-Visit Planning Caller Name: MEG GEORGES; Caller Number: Sallie chronic kidney disease stage 3a Normal [facility] Pre-Visit Planning Pre-Visit Planning From: Mai [...] feel free to contact me at extension [phone]. Thank you! Mai Wilkins LPN Clinical Pattern Filer [place] [address] Extension: [phone] [email or web address] From: Jami Payne To: ClaudetteRachel palacioissa Sallie; Sent: 10/23/2023 10:45:18 EDT Subject: RE: Pre-Visit Planning Caller Name: MEG GEORGES; Caller Number: Sallie will determine during visit. thank you Normal [facility] Pre-Visit Planning Pre-Visit Planning From: Mai [...] feel free to contact me at extension [phone]. Thank you! Mai Wilkins LPN Clinical Pattern Filer [place] [address] Extension: [phone] [email or web address] Normal [facility] Physician Orderon 05-27-2023 Physician Order [id number] Normal [facility] Respiratory Panel by PCRon 0 05-27-2023 Adenovirus DNA CAL+non-probe Ql (Nph) Not detected Normal [facility] Comment on above: Order Comment: charanjit Zaidi had talked to [facility] earlier in the day and they want the swab placed into the media to run the specimen [id number] 05/27/2023 17:26:25 EDT Result Comment: Test ing was performed using nucleic acid amplification including Influenza A, Influenza A H1, Influenza A H3, Influenza B, RSV A, RSV B, Adenovirus, Human Metapneumovirus, Parainfluenza 1,2,3, and 4, Rhinovirus, Bordetella parapertussis/bronchiseptica, Bordetella holmesii, and Bordetella pertussis. Performed By: #### 1 [id number] ####[address] [address] B. parapertussis DNA CAL+probe Ql (Upper resp) Not detected Normal Not Detected [facility] Comment on above: Order Comment: per charanjit Donaldson had talked to [facility] earlier in the day and they want the swab placed into the media to run the specimen [id number] 05/27/2023 17:26:25 EDT Performed By: #### 1 [id number] ####[address] [address] B. pertussis DNA CAL+probe Ql (Upper resp) Not detected Normal Not Detected [facility] Comment on above: Order Comment: per charanjit Smiley had talked to [facility] earlier in the day and they want the swab placed into the media to run the specimen [id number] 05/27/2023 17:26:25 EDT Performed By: #### 1 [id number] ####[address] [address] FLUAV H1 RNA CAL+non-probe Ql (Nph) Not detected Normal [facility] Comment on above: Order Comment: per charanjit Donaldson had talked to [facility] earlier in the day and they want the swab placed into the media to run the specimen [id number] 05/27/2023 17:26:25 EDT Performed By: #### 1 [id number] ####[address] [address] FLUAV H3 RNA CAL+non-probe Ql (Nph) Not detected Normal [facility] Comment on above: Order Comment: per charanjit Donaldson had talked to [facility] earlier in the day and they want the swab placed into the media to run the specimen [id number] 05/27/2023 17:26:25 EDT Performed By: #### 1 [id number] ####[address] [place] [address] FLUAV RNA CAL+non-probe Ql (Nph) Not detected Normal [facility] Comment on above: Order Comment: per charanjit Donaldson had talked to [facility] earlier in the day and they want the swab placed into the media to run the specimen [id number] 05/27/2023 17:26:25 EDT Performed By: #### 1 [id number] ####[place] [address] [facility] [address] FLUBV RNA CAL+non-probe Ql (Nph) Not detected Normal [facility] Comment on above: Order Comment: per charanjit Donaldson had talked to [facility] earlier in the day and they want the swab placed into the media to run the specimen [id number] 05/27/2023 17:26:25 EDT Performed By: #### 1 [id number] ####[address] [address] Human Metapneumovirus Not detected Normal [facility] Comment on above: Order Comment: per charanjit Donaldson had talked to [facility] earlier in the day and they want the swab placed into the media to run the specimen [id number] 05/27/2023 17:26:25 EDT Result Comment: This test result should be correlated with clinical presentations and medical history by a healthcare provider to determine its clinical significance. Performed By: #### 1 [id number] ####[facility] [address] [place] [address] Parainfluenza virus 1 RNA CAL+non-probe Ql (Nph) Not detected Normal [facility] Comment on above: Order Comment: per charanjit Donaldson had talked to [place] earlier in the day and they want the swab placed into the media to run the specimen [id number] 05/27/2023 17:26:25 EDT Performed By: #### 1 [id number] ####[facility] [address] [facility] [address] Parainfluenza virus 2 RNA CAL+non-probe Ql (Nph) Not detected Normal [facility] Comment on above: Order Comment: charanjit Zaidi had talked to [place] earlier in the day and they want the swab placed into the media to run the specimen [id number] 05/27/2023 17:26:25 EDT Performed By: #### 1 [id number] ####[facility] [address] [place] [address] Parainfluenza virus 3 RNA CAL+non-probe Ql (Nph) Not detected Normal [facility] Comment on above: Order Comment: charanjit Zaidi had talked to [place] earlier in the day and they want the swab placed into the media to run the specimen [id number] 05/27/2023 17:26:25 EDT Performed By: #### 1 [id number] ####[facility] [address] [place] [address] Parainfluenza virus 4 RNA CAL+non-probe Ql (Nph) Not detected Normal [facility] Comment on above: Order Comment: charanjit Zaidi had talked to [place] earlier in the day and they want the swab placed into the media to run the specimen [id number] 05/27/2023 17:26:25 EDT Performed By: #### 1 [id number] ####[facility] [address] [place] [address] Resp Panel Intrl QC Pass Normal [facility] Comment on above: Order Comment: charanjit Zaidi had talked to [place] earlier in the day and they want the swab placed into the media to run the specimen [id number] 05/27/2023 17:26:25 EDT Performed By: #### 1 [id number] ####[facility] [address] [place] [address] Rhinovirus+Enterovirus RNA CAL+non-probe Ql (Nph) Not detected Normal [facility] Comment on above: Order Comment: charanjit Zaidi had talked to [place] earlier in the day and they want the swab placed into the media to run the specimen [id number] 05/27/2023 17:26:25 EDT Performed By: #### 1 [id number] ####[facility] [address] [place] [address] RSV RNA CAL+non-probe Ql (Nph) Detected Abnormal [facility] Comment on above: Order Comment: per charanjit Donaldson Erica had talked to [employer] earlier in the day and they want the swab placed into the media to run the specimen [id number] 05/27/2023 17:26:25 EDT Performed By: #### 1 [id number] ####[facility] [address] [place] [address] [facility] CBC W/ AUTO DIFFon 03-20 Basophils (Bld) [#/Vol] 0.0 10*3/uL [facility] Basophils/100 WBC (Bld) 0.2 % 0.0 - 2.0 % [facility] EOS ABSOLUTE 0.9 High [facility] Eosinophils/100 WBC (Bld) 7.7 % 0.0 - 8.0 % [facility] Erythrocyte distribution width (RBC) [Ratio] 14.1 % 10.9 - 14.2 % [facility] Hematocrit (Bld) [Volume fraction] 32.0 % Low 34.0 - 46.0 % [facility] Hemoglobin (Bld) [Mass/Vol] 10.3 g/dL Low [facility] Interpretation and review of laboratory results Abnormal [facility] LYMPH ABSOLUTE 2.5 [facility] Lymphocytes/100 WBC (Bld) 22.1 % 14.0 - 50.0 % [facility] MCH (RBC) [Entitic mass] 30.0 pg 27.0 - 34.0 pg [facility] MCHC (RBC) [Mass/Vol] 31.9 g/dL [facility] MCV (RBC) [Entitic vol] 94.1 fL 80.0 - 100.0 fL [facility] MONO ABSOLUTE 1.0 [facility] Monocytes/100 WBC (Bld) 9.2 % 4.0 - 14.0 % [facility] NEUTRO ABSOLUTE 6.8 [facility] NEUTRO AUTO 60.8 % 36.0 - 75.0 % [facility] Platelet mean volume (Bld) [Entitic vol] 7.5 fL 6.4 - 10.8 fL [facility] Platelets (Bld) [#/Vol] 270.0 10*3/uL [facility] RBC (Bld) [#/Vol] 3.4 10*6/uL Low [facility] Healthcare WBC (Bld) [#/Vol] 11.3 10*3/uL High [facility] Healthcare Original Ordering Provider: [facility] WO CONTRAS Ton [...] to 8 to 9 mm compatible with [id number] central stenosis. No neural foraminal stenosis. C3-C4: [...] Chance Hugo DO 11/23/22 Final result Normal [facility] XR CERVICAL SPINE (4-5 VIEWS )on [...] MD 04/03/22 Final result Normal [facility] Prior dens fracture with posterior fixation at C1-2 without complication. Multilevel degenerative facet hypertrophy. [facility] RIS CONSOLIDATED EXAMINATION: 4 XRAY VIEWS OF [...] The lung apices are without acute process. [facility] CON[facility] Clark Veliz MD - 04/03/2022 EXAMINATION: [...] C1-2 without complication. Multilevel degenerative facet hypertrophy. [employer] Phone: XR CERVICAL SPINE (4-5 VIEWS )Ordered By: Clark Veliz on 04-03-2022 [employer] Phone: XR CERVICAL SPINE (4-5 VIEWS )on 04-02-2022 Radiology Study observation (narrative) [employer] Phone: XR CERVICAL SPINE FLEXION AN D EXTENSIONon 12-06-2021 Similar angulated pathologic dens fracture with posterior fixation C1-C2. [facility] CONSOLID[facility] EXAMINATION: 2 XRAY VIEWS OF THE [...] is a tracheostomy tube in place. Similar kkgz-tf-rrzoinmx degenerative changes lower cervical spine. No localized prevertebral soft tissue swelling. [facility] Jose Dahl MD - 12/06/2021 EXAMINATION: 2 [...] is a tracheostomy tube in place. Similar qsbp-lp-cyvwsbih degenerative changes lower cervical spine. No localized prevertebral soft tissue swelling. IMPRESSION: Similar angulated pathologic dens fracture with posterior fixation C1-C2. [employer] Phone: XR CERVICAL SPINE FLEXION AN D EXTENSIONOrdered By: Jose Chan on 12-06-2021 [employer] Phone: XR CERVICAL SPINE FLEXION AN D EXTENSIONon 12-04-2021 Radiology Study observation (narrative) [employer] Phone: Basic Metabolic Panelon 10-0 Anion gap [Moles/Vol] 15.1 mmol/L High 6.0-15.[address] [facility] Comment on above: Performed By: #### C BC, BMP #### [place] [address] [place] Calcium [Mass/Vol] 9.6 mg/dL Normal 8.2-10.2 [facility] Comment on above: Result Comment: PERF ORMED BY: [place] [address] PATHOLOGIST BUILDING PERFORMANCE SPECIALIST ALEYDA GUERRIER M.D. Performed By: #### C BC, BMP #### [facility] [address] [place] [address] [place] Chloride [Moles/Vol] 97 mmol/L Normal 95-114 [facility] Comment on above: Performed By: #### C BC, BMP #### [facility] [address] CO2 [Moles/Vol] 25.4 mmol/L Normal 22.0-30.0 [facility] Comment on above: Performed By: #### C BC, BMP #### [facility] [address] Creatinine [Mass/Vol] 0.82 mg/dL Normal 0.44-1.03 [facility] Comment on above: Performed By: #### C BC, BMP #### [facility] [address] Estimated GFR ( Jesusita > 60 Normal [facility] Comment on above: Result Comment: GFR estimated reference range: According to KDOQI guidelines, <60 ml/min/1.73m2 is sufficient to diagnose a patient with chronic kidney disease. Performed By: #### C BC, BMP #### [address] Estimated GFR (Non- Am > 60 [facility] Comment on above: Performed By: #### C BC, BMP #### [address] Glucose [Mass/Vol] 105 mg/dL High 70-100 [facility] Comment on above: Result Comment: [place] Glucose Reference Range is dependent on time and content of last meal. Glucose of more than 200 mg/dL in a nonstressed, ambulatory subject supports the diagnosis of Diabetes Mellitus. ADA recommended reference range Performed By: #### C BC, BMP #### [facility] [address] [place] [address] [place] Potassium [Moles/Vol] 4.5 mmol/L Normal 3.5-5.1 [facility] Comment on above: Performed By: #### C BC, BMP #### [facility] [address] [place] [address] [place] Sodium [Moles/Vol] 133 mmol/L Low 136-146 [facility] Comment on above: Performed By: #### C BC, BMP #### [facility] [address] [place] [address] [place] Urea nitrogen [Mass/Vol] 31 mg/dL High 9-23 [facility] Comment on above: Performed By: #### C BC, BMP #### [facility] [address] [place] [address] [place] Basophils Auto (Bld) [#/Vol] Ordered By: Rufus Shen on 11-22-2021 Basophils (Bld) [#/Vol] 0.0 10*3/uL 0.0-0.2 [facility] Basophils/100 WBC Auto (Bld) Ordered By: Rufus Shen on 11-22-2021 Basophils/100 WBC (Bld) 0.3 % . [facility] Blood hemoglobin measurement (mass/volume)Ordered By: Rufus Shen on 11-22-2021 Hemoglobin (Bld) [Mass/Vol] 10.1 g/dL 11.8-15.4 [facility] Blood leukocytes automated c ount (number/volume)Ordered By: Rufus Shen on 11-22-2021 WBC (Bld) [#/Vol] 12.2 10*3/uL 4.5-11.0 [facility] Complete Blood Count Auto Di ffon 11-22-2021 Basophils (Bld) [#/Vol] 0.0 10*3/uL Normal 0.0-0.2 [facility] Comment on above: Result Comment: PERF ORMED BY: [place] [address] PATHOLOGIST BUILDING PERFORMANCE SPECIALIST ALEYDA GUERRIER M.D. Performed By: #### C BC, BMP #### [facility] [address] Basophils/100 WBC (Bld) 0.3 % Normal . [facility] Comment on above: Performed By: #### C BC, BMP #### [facility] [address] [place] [address] [place] Eosinophils (Bld) [#/Vol] 0.2 10*3/uL Normal 0.0-0.45 [facility] Comment on above: Performed By: #### C BC, BMP #### [facility] [address] Eosinophils/100 WBC (Bld) 2.0 % Normal . [facility] Comment on above: Performed By: #### C BC, BMP #### [facility] [address] Erythrocyte distribution width (RBC) [Ratio] 19.2 % High 11.9-15.3 [facility] Comment on above: Performed By: #### C BC, BMP #### [facility] [address] Hematocrit (Bld) [Volume fraction] 32.0 % Low 34.0-46.4 [facility] Comment on above: Performed By: #### C BC, BMP #### [facility] [address] Hemoglobin (Bld) [Mass/Vol] 10.1 g/dL Low 11.8-15.4 [facility] Comment on above: Performed By: #### C BC, BMP #### [facility] [address] Lymphocytes (Bld) [#/Vol] 2.2 10*3/uL Normal 1.00-4.8 [facility] Comment on above: Performed By: #### C BC, BMP #### [facility] [address] Lymphocytes/100 WBC (Bld) 18.2 % Normal . [facility] Comment on above: Performed By: #### C BC, BMP #### [facility] [address] [place] [address] [place] MCH (RBC) [Entitic mass] 27.0 pg Normal 24.7-34.3 [facility] Comment on above: Performed By: #### C BC, BMP #### [facility] [address] MCV (RBC) [Entitic vol] 85.7 fL Normal 80-100 [facility] Comment on above: Performed By: #### C BC, BMP #### [facility] [address] [place] [phone] [place] Mean Corpuscular HGB Conc 31.5 g/dL Low 32.0-35.0 [facility] Comment on above: Performed By: #### C BC, BMP #### [facility] [address] [place] [address] [place] Monocytes (Bld) [#/Vol] 0.6 10*3/uL Normal 0.0-0.8 [facility] Comment on above: Performed By: #### C BC, BMP #### [facility] [address] [place] [phone] [place] Monocytes/100 WBC (Bld) 5.3 % Normal . [facility] Comment on above: Performed By: #### C BC, BMP #### [facility] [address] [place] [address] [place] Neutrophils (Bld) [#/Vol] 9.0 10*3/uL High 1.8-7.7 [facility] Comment on above: Performed By: #### C BC, BMP #### [facility] [address] [place] [phone] [place] Neutrophils/100 WBC (Bld) 74.2 % Normal . [facility] Comment on above: Performed By: #### C BC, BMP #### [facility] [address] [place] [phone] [place] Nucleated RBC/100 WBC (Bld) [Ratio] 0.0 % Normal 0-0.5 [facility] Comment on above: Performed By: #### C BC, BMP #### [facility] [address] [place] [phone] [place] Platelet mean volume (Bld) [Entitic vol] 7.4 fL Normal 6.3-10.7 [facility] Comment on above: Performed By: #### C BC, BMP #### [facility] [address] [place] [address] [place] Platelets (Bld) [#/Vol] 543 10*3/uL High 150-450 [facility] Comment on above: Performed By: #### C BC, BMP #### [facility] [address] RBC (Bld) [#/Vol] 3.74 10*6/uL Normal 3.60-5.00 [facility] Comment on above: Performed By: #### C BC, BMP #### [facility] [address] [place] [phone] [place] WBC (Bld) [#/Vol] 12.2 10*3/uL High 4.5-11.0 [facility] Comment on above: Performed By: #### C BC, BMP #### [facility] [address] Creatinine and Glomerular fi ltration rate.predicted panel (S/P/Bld)Ordered By: Rufus Shen on 11-22-2021 Creatinine [Mass/Vol] 0.82 mg/dL 0.44-1.03 [facility] Eosinophils Auto (Bld) [#/Vo l]Ordered By: Rufus Shen on 11-22-2021 Eosinophils (Bld) [#/Vol] 0.2 10*3/uL 0.0-0.45 [facility] Eosinophils/100 WBC Auto (Bl d)Ordered By: Rufus Shen on 11-22-2021 Eosinophils/100 WBC (Bld) 2.0 % . [facility] Erythrocyte distribution wid th Auto (RBC) [Ratio]Ordered By: Rufus Shen on 11-22-2021 Erythrocyte distribution width (RBC) [Ratio] 19.2 % 11.9-15.3 [facility] Estimated glomerular filtrat ion rate (GFR) non- AmericanOrdered By: Rufus Shen on 11-22-2021 GFR/1.73 sq M.predicted among non-blacks MDRD (S/P/Bld) [Vol rate/Area] > 60 mL/Min [facility] Hematocrit Auto (Bld) [Volum e fraction]Ordered By: Rufus Shen on 11-22-2021 Hematocrit (Bld) [Volume fraction] 32.0 % 34.0-46.4 [facility] Laboratory - Hematology and Cell countsOrdered By: Rufus Shen on 11-22-2021 Nucleated RBC/100 WBC (Bld) [Ratio] 0.0 % 0-0.5 [facility] Lymphocytes Auto (Bld) [#/Vo l]Ordered By: Rufus Shen on 11-22-2021 Lymphocytes (Bld) [#/Vol] 2.2 10*3/uL 1.00-4.8 [facility] Lymphocytes/100 WBC Auto (Bl d)Ordered By: Rufus Shen on 11-22-2021 Lymphocytes/100 WBC (Bld) 18.2 % . [facility] MCH Auto (RBC) [Entitic mass ]Ordered By: Rufus Shen on 11-22-2021 MCH (RBC) [Entitic mass] 27.0 pg 24.7-34.3 [facility] MCHC Auto (RBC) [Mass/Vol]Or dered By: Rufus Shen on 11-22-2021 MCHC (RBC) [Mass/Vol] 31.5 g/dL 32.0-35.0 [facility] MCV Auto (RBC) [Entitic vol] Ordered By: Rufus Shen on 11-22-2021 MCV (RBC) [Entitic vol] 85.7 fL 80-100 [facility] Monocytes Auto (Bld) [#/Vol] Ordered By: Rufus Shen on 11-22-2021 Monocytes (Bld) [#/Vol] 0.6 10*3/uL 0.0-0.8 [facility] Monocytes/100 WBC Auto (Bld) Ordered By: Rufus Shen on 11-22-2021 Monocytes/100 WBC (Bld) 5.3 % . [facility] Neutrophils Auto (Bld) [#/Vo l]Ordered By: Rufus Shen on 11-22-2021 Neutrophils (Bld) [#/Vol] 9.0 10*3/uL 1.8-7.7 [facility] Neutrophils/100 WBC Auto (Bl d)Ordered By: Rufus Shen on 11-22-2021 Neutrophils/100 WBC (Bld) 74.2 % . [facility] No Panel InformationOrdered By: Rufus Shen on 11-22-2021 Estimated GFR () > 60 mL/Min [facility] Comment on above: GFR estimated refere nce range: According to KDOQI guidelines, <60 ml/min/1.73m2 is sufficient to diagnose a patient with chronic kidney disease. Pharmacy Creatinine Clearance (Chem N/A [facility] Platelet mean volume Auto (B ld) [Entitic vol]Ordered By: Rufus Shen on 11-22-2021 Platelet mean volume (Bld) [Entitic vol] 7.4 fL 6.3-10.7 [facility] Platelets Auto (Bld) [#/Vol] Ordered By: Rufus Shen on 11-22-2021 Platelets (Bld) [#/Vol] 543 10*3/uL 150-450 [facility] RBC Auto (Bld) [#/Vol]Ordere d By: Rufus Shen on 11-22-2021 RBC (Bld) [#/Vol] 3.74 10*6/uL 3.60-5.00 [facility] Serum or plasma anion gap de terminationOrdered By: Rufus Shen on 11-22-2021 Anion gap [Moles/Vol] 15.1 mmol/L 6.0-15.[address] [facility] Serum or plasma calcium shakir urement (mass/volume)Ordered By: Rufus Shen on 11-22-2021 Calcium [Mass/Vol] 9.6 mg/dL 8.2-10.2 [facility] Serum or plasma chloride giovanna surement (moles/volume)Ordered By: Rufus Shen on 11-22-2021 Chloride [Moles/Vol] 97 mmol/L 95-114 [facility] Serum or plasma glucose shakir urement (mass/volume)Ordered By: Rufus Shen on 11-22-2021 Glucose [Mass/Vol] 105 mg/dL 70-100 [facility] Comment on above: ADA recommended refe rence rangeRandom Glucose Reference Range is dependent on time and content of last meal. Glucose of more than 200 mg/dL in a nonstressed, ambulatory subject supports the diagnosis of Diabetes Mellitus. Serum or plasma potassium me asurement (moles/volume)Ordered By: Rufus Shen on 11-22-2021 Potassium [Moles/Vol] 4.5 mmol/L 3.5-5.1 [facility] Serum or plasma sodium measu rement (moles/volume)Ordered By: Rufus Shen on 11-22-2021 Sodium [Moles/Vol] 133 mmol/L 136-146 [facility] Serum or plasma total carbon dioxide measurement (moles/volume)Ordered By: Rufus Shen on 11-22-2021 CO2 [Moles/Vol] 25.4 mmol/L 22.0-30.0 [facility] Serum or plasma urea nitroge n measurement (mass/volume)Ordered By: Rufus Shen on 11-22-2021 Urea nitrogen [Mass/Vol] 31 mg/dL 9 [facility] BASIC METABOLIC PANELon 10-18 Anion gap [Moles/Vol] 10 mmol/L Normal <=30 [facility] Comment on above: Performed By: #### L [id number] #### [facility] (BEAKER) [address] [place] [address] Calcium [Mass/Vol] 9.6 mg/dL Normal 8.6-10.3 [facility] Comment on above: Performed By: #### L [id number] #### [facility] (BEAKER) [address] [facility] [place] [address] Chloride [Moles/Vol] 101 mmol/L Normal 98-107 [facility] Comment on above: Performed By: #### L [id number] #### [facility] ([facility]AKER) [address] [place] [address] CO2 [Moles/Vol] 28 mmol/L Normal 21-31 [facility] Comment on above: Performed By: #### L [id number] #### [facility] ([facility]AKER) [address] [place] [address] Creatinine [Mass/Vol] 0.71 mg/dL Normal 0.60-1.20 [facility] Comment on above: Performed By: #### L [id number] #### [facility] ([facility]AKER) [address] [facility] [place] [address] GLOMERULAR FILTRATION RATE ML/MIN/1.73 SQ M.PREDICTED 94.2 mL/min/1.73m*2 Normal >60.0 [facility] Comment on above: Result Comment: [facility]???s estimated glomerular filtration rate [...] individuals. Performed By: #### L [id number] #### [facility] ([facility]) [address] [place] [address] Glucose [Mass/Vol] 74 mg/dL Normal 70-100 [facility] Comment on above: Performed By: #### L [id number] #### [facility] ([facility]) [address] [place] [address] Potassium [Moles/Vol] 4.3 mmol/L Normal 3.5-5.1 [facility] Comment on above: Performed By: #### L [id number] #### [facility] ([facility]) [address] [place] [address] Sodium [Moles/Vol] 139 mmol/L Normal 136-145 [facility] Comment on above: Performed By: #### L [id number] #### [facility] ([facility]) [address] [place] [address] Urea nitrogen [Mass/Vol] 36 mg/dL High 7-25 [facility] Comment on above: Performed By: #### L [id number] #### [facility] ([facility]) [address] [place] [address] UREA NITROGEN/CREATININE (MASS RATIO) IN SER/PLAS 50.70 Normal [facility] Comment on above: Performed By: #### L [id number] #### [facility] ([facility]) [address] [place] [address] HEMATOCRITon 10-27-2021 Hematocrit (Bld) [Volume fraction] 33.5 % Low 36.0-48.0 [facility] Comment on above: Performed By: #### L [id number] #### [facility] ([facility]AKER) [address] [place] [address] HEMOGLOBINon 10-27-2021 Hemoglobin (Bld) [Mass/Vol] 10.7 g/dL Low 12.0-15.0 [facility] Comment on above: Performed By: #### L [id number] #### [facility] (BEAKER) [address] [place] [address] ARTERIAL BLOOD GAS WITH ICAo n 08-21-2021 BASE EXCESS -7 mmol/L Low -2-3 [facility] Comment on above: Performed By: #### 8 [id number] ####[facility] [facility] [address], [facility] [employer] [employer] VENT Normal [facility] Comment on above: Performed By: #### 8 [id number] ####[facility] [facility] [address], [facility] FIO2 30 % Normal [facility] Comment on above: Performed By: #### 8 [id number] ####[facility] [place] [address], [place] HCO3 (Bld) [Moles/Vol] 17 mmol/L Low 21-28 [facility] Comment on above: Performed By: #### 8 [id number] ####[facility] [facility] [place] [address], [place] IONIZED CALCIUM 1.20 mmol/L Normal 1.13-1.32 [facility] Comment on above: Performed By: #### 8 [id number] ####[facility] [place] [address], [place] MIN VOLUME 6.7 Normal [facility] Comment on above: Performed By: #### 8 [id number] ####[facility] [place] [address], [place] MODALITY VENT Normal [facility] Comment on above: Performed By: #### 8 [id number] ####[facility] [place] [address], [place] Oxygen (Bld) [Partial pressure] 163 mm[Hg] Critically high 83-108 [facility] Comment on above: Performed By: #### 8 [id number] ####[facility] [place] [address], [place] Oxygen saturation in Blood 97.1 % High 94.0-97.0 [facility] Comment on above: Performed By: #### 8 [id number] ####[facility] [place] [address], [place] PCO2 28 mmHg Low 35-45 [facility] Comment on above: Performed By: #### 8 [id number] ####[facility] [place] [address], [place] PEEP 8.0 CMH20 Normal [facility] Comment on above: Performed By: #### 8 [id number] ####[facility] [place] [address], [place] PF RATIO 543 mmHg Normal [facility] Comment on above: Performed By: #### 8 [id number] ####[facility] [place] [address], [place] pH (Bld) 7.39 [pH] Normal 7.35-7.45 [facility] Comment on above: Performed By: #### 8 [id number] ####[facility] [place] [address], [place] PRESSURE SUPPORT 8 Normal [facility] Comment on above: Performed By: #### 8 [id number] ####[facility] [place] [address], [facility] BASE EXCESS -7 mmol/L Low -2-3 [facility] Comment on above: Performed By: #### 8 4511 ####[facility] [place] [address], [place] DELIVERY SYSTEMS VENT Normal [facility] Comment on above: Performed By: #### 8 4511 ####[facility] [place] [address], [place] FIO2 30 % Normal [facility] Comment on above: Performed By: #### 8 4511 ####[facility] [place] [address], [place] HCO3 (Bld) [Moles/Vol] 17 mmol/L Low 21-28 e [facility] Comment on above: Performed By: #### 8 4511 ####[facility] [place] [address], [place] IONIZED CALCIUM 1.15 mmol/L Normal 1.13-1.32 [facility] Comment on above: Performed By: #### 8 4511 ####[facility] [place] [address], [place] MIN VOLUME 8.2 Normal [facility] Comment on above: Performed By: #### 8 4511 ####[facility] [place] [address], [place] MODALITY AC Normal [facility] Comment on above: Performed By: #### 8 4511 ####[facility] [place] [address], [place] Oxygen (Bld) [Partial pressure] 158 mm[Hg] Critically high 83-108 [facility] Comment on above: Performed By: #### 8 4511 ####[facility] Oxygen saturation in Blood 97.6 % High 94.0-97.0 [facility] Comment on above: Performed By: #### 8 4511 ####[facility] [facility] [address], [facility] PCO2 26 mmHg Low 35-45 [facility] Comment on above: Performed By: #### 8 4511 ####[facility] [facility] [place] [address], [facility] PEEP 8.0 CMH20 Normal [facility] Comment on above: Performed By: #### 8 4511 ####[facility] [facility].[address] PF RATIO 526 mmHg Normal [facility] Comment on above: Performed By: #### 8 4511 ####[facility] [facility], [place] [id number] [place] [address] pH (Bld) 7.41 [pH] Normal 7.35-7.45 [facility] Comment on above: Performed By: #### 8 4511 ####[facility] [facility].[address] Respiratory rate 12 /min Normal [facility] Comment on above: Performed By: #### 8 4511 ####[facility] [facility].[address] TIDAL VOLUME (VT) CC 450 Normal [facility] Comment on above: Performed By: #### 8 4511 ####[facility] [facility], [place] [id number] [place] [address] BASE EXCESS -3 mmol/L Low -2-3 [facility] Comment on above: Performed By: #### 8 4511 ####[facility] [facility], [place] [id number] [place] [address] DELIVERY SYSTEMS MV Normal [facility] Comment on above: Performed By: #### 8 4511 ####[facility] [place] [address], [facility] FIO2 30 % Normal [facility] Comment on above: Performed By: #### 8 4511 ####[facility], [place] [id number] [place] [address] HCO3 (Bld) [Moles/Vol] 21 mmol/L Normal 21-28 Th e [facility] Comment on above: Performed By: #### 8 4511 ####[facility] IONIZED CALCIUM 1.24 mmol/L Normal 1.13-1.32 [facility] Comment on above: Performed By: #### 8 4511 ####[facility] [place] [address], [facility] MIN VOLUME 6.7 Normal [facility] Comment on above: Performed By: #### 8 4511 ####[facility] [place] [address], [facility] MODALITY AC Normal [facility] Comment on above: Performed By: #### 8 4511 ####[facility] Oxygen (Bld) [Partial pressure] 155 mm[Hg] Critically high 83-108 [facility] Comment on above: Performed By: #### 8 4511 ####[facility] [place] [address], [facility] Oxygen saturation in Blood 98.3 % High 94.0-97.0 [facility] Comment on above: Performed By: #### 8 4511 ####[facility] [place] [address], [facility] PCO2 32 mmHg Low 35-45 [facility] Comment on above: Performed By: #### 8 4511 ####[facility] [place] [address], [facility] PEEP 8.0 CMH20 Normal [facility] Comment on above: Performed By: #### 8 4511 ####[facility] [place] [address], [facility] pH (Bld) 7.42 [pH] Normal 7.35-7.45 [facility] Comment on above: Performed By: #### 8 4511 ####[facility] [place] [address], [facility] Respiratory rate 12 /min Normal [facility] Comment on above: Performed By: #### 8 4511 ####[facility] [place] [address], [facility] TIDAL VOLUME (VT) CC 450 Normal [facility] Comment on above: Performed By: #### 8 4511 ####[facility] [facility] [place] [address], [facility] BASIC METABOLIC PANELon 07-0 Calcium [Mass/Vol] 7.9 mg/dL Low 8.6-10.3 [facility] Comment on above: Order Comment: No: D o not add to previous draw Performed By: #### 6 2594 #### [facility] [address] [place] [address], [place] Chloride [Moles/Vol] 110 mmol/L High 98-107 [facility] Comment on above: Order Comment: No: D o not add to previous draw Performed By: #### 6 2594 #### [facility] [address] [place] [address], [place] CO2 [Moles/Vol] 20 mmol/L Low 21-31 The [facility] Comment on above: Order Comment: No: D o not add to previous draw Performed By: #### 6 2594 #### [facility] [address] [place] [address], [place] Creatinine [Mass/Vol] 0.77 mg/dL Normal 0.60-1.20 [facility] Comment on above: Order Comment: No: D o not add to previous draw Performed By: #### 6 2594 #### [facility] [address] [place] [address], [place] GFR/1.73 sq M.predicted among blacks MDRD (S/P/Bld) [Vol rate/Area] mL/min/{1.73_m2} Normal >60 [facility] Comment on above: Order Comment: No: D o not add to previous draw Performed By: #### 6 2594 #### [facility] [address] [place] [address], [place] GFR/1.73 sq M.predicted among non-blacks MDRD (S/P/Bld) [Vol rate/Area] mL/min/{1.73_m2} Normal >60 [facility] Comment on above: Order Comment: No: D o not add to previous draw Performed By: #### 6 2594 #### [facility] [address] [place] [address], [place] Glucose [Mass/Vol] 124 mg/dL High 70-100 The [facility] Comment on above: Order Comment: No: D o not add to previous draw Performed By: #### 6 2594 #### [facility] [address] [place] [address], [place] Potassium [Moles/Vol] 3.8 mmol/L Normal 3.5-5.1 [facility] Comment on above: Order Comment: No: D o not add to previous draw Performed By: #### 6 2594 #### [facility] [address] [place] [address], [place] Sodium [Moles/Vol] 139 mmol/L Normal 136-145 The [facility] Comment on above: Order Comment: No: D o not add to previous draw Performed By: #### 6 2594 #### [facility] [address] [place] [id number], [facility] Urea nitrogen [Mass/Vol] 26 mg/dL High 7-25 [facility] Comment on above: Order Comment: No: D o not add to previous draw Performed By: #### 6 2594 #### [facility] [address] [place] [address], [facility] CBC COMPLETE BLOOD COUNTon 0 08-21-2021 Erythrocyte distribution width (RBC) [Ratio] 18.3 % High 11.5-15.0 [facility] Comment on above: Order Comment: No: D o not add to previous draw Nurse draw Performed By: #### 5 0608 #### [facility] [address] [place] [address], [facility] Hematocrit (Bld) [Volume fraction] 24.4 % Low 36.0-45.0 [facility] Comment on above: Order Comment: No: D o not add to previous draw Nurse draw Performed By: #### 5 0608 #### [facility] [address] [place] [address], [facility] Hemoglobin (Bld) [Mass/Vol] 8.2 g/dL Low 12.0-15.0 [facility] Comment on above: Order Comment: No: D o not add to previous draw Nurse draw Performed By: #### 5 0608 #### [facility] [address] [place] [address], [facility] MCH (RBC) [Entitic mass] 30.5 pg Normal 27.0-33.0 [facility] Comment on above: Order Comment: No: D o not add to previous draw Nurse draw Performed By: #### 5 0608 #### [facility] [address] [place] [address], [facility] MCHC (RBC) [Mass/Vol] 33.6 g/dL Normal 32.0-35.0 [facility] Comment on above: Order Comment: No: D o not add to previous draw Nurse draw Performed By: #### 5 0608 #### [facility] [address] [place] [address], [facility] MCV (RBC) [Entitic vol] 90.7 fL Normal 82.0-98.0 T [facility] Comment on above: Order Comment: No: D o not add to previous draw Nurse draw Performed By: #### 5 0608 #### [facility] [address] [place] [address], [facility] Nucleated RBC/100 WBC (Bld) [Ratio] 0 % Normal 0-0 [facility] Comment on above: Order Comment: No: D o not add to previous draw Nurse draw Performed By: #### 5 0608 #### [facility] [address] [place] [address], [facility] PLAT CNT 297 10*3/uL Normal 150-400 [facility] Comment on above: Order Comment: No: D o not add to previous draw Nurse draw Performed By: #### 5 0608 #### [facility] [address] [place] [address], [facility] RBC (Bld) [#/Vol] 2.69 10*6/uL Low 3.80-5.00 The [facility] Comment on above: Order Comment: No: D o not add to previous draw Nurse draw Performed By: #### 5 0608 #### [facility] [address] [place] [id number], [place] WBC (Bld) [#/Vol] 11.33 10*3/uL High 4.00-10.60 [facility] Comment on above: Order Comment: No: D o not add to previous draw Nurse draw Performed By: #### 5 0608 #### [facility] [address] [place] [address], [facility] CT BRAIN WO CONTRASTon 08-21 CT BRAIN WO CONTRAST [facility] Department of Radiology [address] [place] [address] Patient Name: MEG GEORGES : 1965 Sex: F Age: Race: White Pt. Location: [id number] Patient Status: I Ordered Date: 08/21/2021 12:50:00 PM Completed Date: 08/21/2021 01:39 PM Requesting Provider: CLAUDETTE PRIEST Attending Provider: JERRY POOZ Report Copy To: Signs & Symptoms: Other [...] to an infectious or inflammatory process. Approved by:Airel Fuentes08/21/2021 4:51 PM. I, Martinez Hoover,have reviewed the image(s) and agree with the findings in this report. Electronically signed: Martinez Hoover. Transcribed by: [email or web address], User Resident: ARIEL SOLORZANO Electronically Signed by: MARTINEZ HOOVER @ 08/21/2021 05:07 PM I personally read this/these film(s) with this resident Normal [facility] Comment on above: Order Comment: Check NG Tube Position CT FACIAL BONES W CONTRASTon 08-21-2021 CT FACIAL BONES W CONTRAST [facility] Department of Radiology [address] [place] [id number] Patient Name: MEG GEORGES : 1965 Sex: F Age: Race: White Pt. Location: [place] [address] Patient Status: I Ordered Date: 08/21/2021 12:50:00 [...] above. Electronically signed: Martinez Hoover. Transcribed by: [email or web address], User Resident: Electronically Signed by: MARTINEZ HOOVER @ 08/21/2021 05:09 PM Normal [facility] Comment on above: Order Comment: R/O A telectasis LACTATE BLOODon 08-21-2021 Lactate [Moles/Vol] 0.6 mmol/L Normal .5-2.2 The [facility] Comment on above: Order Comment: No: D o not add to previous draw Performed By: #### 1 0054 ####[facility] [place] [address], [place] LIVER BATTERYon 08-21-2021 Albumin [Mass/Vol] 2.3 g/dL Low 3.5-5.7 [facility] Comment on above: Order Comment: No: D o not add to previous draw Performed By: #### 6 2594 #### [facility] [address] [place] [address], [place] ALKALINE PHOSPH 172 IU/L High 34-104 [facility] Comment on above: Order Comment: No: D o not add to previous draw Performed By: #### 6 2594 #### [facility] [address] [place] [address], [place] ALT [Catalytic activity/Vol] 9 U/L Normal 7-52 [facility] Comment on above: Order Comment: No: D o not add to previous draw Performed By: #### 6 2594 #### [facility] [address] [place] [address], [place] AST [Catalytic activity/Vol] 12 U/L Low 13-39 [facility] Comment on above: Order Comment: No: D o not add to previous draw Performed By: #### 6 2594 #### [facility] [address] [place] [address], [place] Bilirubin [Mass/Vol] 0.4 mg/dL Normal 0.3-1.0 [facility] Comment on above: Order Comment: No: D o not add to previous draw Performed By: #### 6 2594 #### [facility] [address] [place] [address], [place] Bilirubin.direct [Mass/Vol] 0.1 mg/dL Normal 0.0-0.2 [facility] Comment on above: Order Comment: No: D o not add to previous draw Performed By: #### 6 2594 #### [facility] [address] [place] [address], [facility] Protein [Mass/Vol] 5.7 g/dL Low 6.0-8.3 The [facility] Comment on above: Order Comment: No: D o not add to previous draw Performed By: #### 6 2594 #### [facility] [address] MAGNESIUM BLOODon 08-21-2021 Magnesium [Mass/Vol] 2.1 mg/dL Normal 1.9-2.7 The [facility] Comment on above: Order Comment: No: D o not add to previous draw Performed By: #### 6 2594 #### [facility] [address] Operative Reporton Operative Report MR#: [id number] I [facility] Pt. Name: Meg Georges Room #: BECKY [id number] Discharge Date: Birthdate: 1965 OPERATIVE REPORT DATE OF SURGERY: 08/21/2021 SURGEON: Jerry Pozo MD Operative report: Percutaneous endoscopic gastrostomy tube placement Location: [facility] main OR Date: 08/21/2021 Preoperative diagnosis: Oropharyngeal dysphagia, nasopharyngeal erosion Postoperative diagnosis: Same Operation performed: Percutaneous endoscopic gastrostomy tube placement Surgeon: Jerry Pozo MD Agent: Garfield Bowen MD ( resident PGY 5) Estimated blood loss: 2 mL Wound classification: Clean contaminated Tubes and drains: 20 Icelandic gastrostomy tube pull type Local anesthetic: 1% lidocaine plain, 4 mL used for subcutaneous infiltration Anesthesia: General anesthesia Indication: This is a 56-year-old woman who had a prolonged hospitalization at [facility] in [place] over the last several months for COVID-related pneumonia and subsequent bacterial pneumonia complications. Patient had chronic hypoxemic respiratory failure requiring placement of tracheostomy approximately 2 weeks ago prior to transfer to [facility]. Patient presented to [facility] 1 day ago for acute bleeding [...] Pozo MD Date Trans: 08/21/2021 11:17 A/ [id number] cc: Johyn Beckman M.D. [address] [facility] Emergency Medicine [facility] [address] Neri Santa D.O. [address] [facility]. [facility] [address] Normal The [facility] PHOSPHORUS BLOODon 2 Phosphate [Mass/Vol] 2.3 mg/dL Low 2.5-5.0 [facility] Comment on above: Order Comment: No: D o not add to previous draw Performed By: #### 6 2594 #### [facility] [address] [facility] [place] [address], [place] POC GLUCOSE LABon 08-21-2021 Glucose [Mass/Vol] 138 mg/dL High 70-100 [facility] Comment on above: Performed By: #### 8 5499 #### [facility] [address] [place] [address], [place] Glucose [Mass/Vol] 164 mg/dL High 70-100 [facility] Comment on above: Performed By: #### 8 5499 ####[facility] [facility] [place] [place] [address], [place] Glucose [Mass/Vol] 143 mg/dL High 70-100 [facility] Comment on above: Order Comment: Bleed ing s/p recent tracheostomy Performed By: #### 8 5499 ####[facility] [place] [address], [place] Glucose [Mass/Vol] 124 mg/dL High 70-100 [facility] Comment on above: Performed By: #### 8 5499 ####[facility] PORTABLE CHEST 1 VIEWon PORTABLE CHEST 1 VIEW [facility] Department of Radiology [address] [place] [address] Patient Name: MEG GEORGES : 1965 Sex: F Age: Race: White Pt. Location: [place] [address] Patient Status: I Ordered Date: 08/21/2021 5:00:00 AM Completed Date: 08/21/2021 07:09 AM Requesting Provider: WILLEM SRERATO Attending Provider: JERRY POZO Report Copy To: [...] unchanged. Electronically signed: Yaritza Young. Transcribed by: [email or web address], User Resident: Electronically Signed by: YARITZA YOUNG @ 08/21/2021 07:38 AM Normal [facility] Comment on above: Order Comment: R/O A telectasis *BLOOD CULTUREon 08-20-2021 *BLOOD CULTURE Clinical Report: (D) Specimen: BLOOD CULTURE Collected: 08/20/2021 00:47 Status: Final Last Updated: 08/25/2021 06:53 (1) RIGHT AC @ 0045. CULT RES (Final) No Growth Day 5 Normal [facility] Comment on above: Order Comment: RIGHT AC @ 0045. Performed By: #### 3 0313 #### [facility] [address] [facility]. [address] *BLOOD CULTURE Clinical Report: (D) Specimen: BLOOD CULTURE Collected: 08/20/2021 00:47 Status: Final Last Updated: 08/25/2021 06:53 (1) LEFT AC @ 0040. CULT RES (Final) No Growth Day 5 Normal [facility] Comment on above: Order Comment: Bleed ing s/p recent tracheostomy Performed By: #### 3 0313 ####[facility] APTTon 08-20-2021 aPTT Coag (Bld) [Time] 58.3 s High 25.0-35.0 Th e [facility] Comment on above: Result Comment: [...] 2594 #### [facility] [address] [facility]. [address] ARTERIAL BLOOD GAS WITH ICAo n 08-20-2021 BASE EXCESS -2 mmol/L Normal -2-3 The [facility] Comment on above: Order Comment: RESUL TS CHECKED AND CALLED. ACCURATELY READ BACK BY DR CALI Performed By: #### 8 4511 ####[facility] [facility].[address] DELIVERY SYSTEMS MV Normal [facility] Comment on above: Order Comment: RESUL TS CHECKED AND CALLED. ACCURATELY READ BACK BY DR CALI Performed By: #### 8 4511 ####[facility] [facility].[address] FIO2 50 % Normal [facility] Comment on above: Order Comment: RESUL TS CHECKED AND CALLED. ACCURATELY READ BACK BY DR CALI Performed By: #### 8 4511 ####[place] [address] [address] HCO3 (Bld) [Moles/Vol] 20 mmol/L Low 21-28 Th e [facility] Comment on above: Order Comment: RESUL TS CHECKED AND CALLED. ACCURATELY READ BACK BY DR CALI Performed By: #### 8 4511 ####[facility] [facility].[address] IONIZED CALCIUM 1.09 mmol/L Low 1.13-1.32 [facility] Comment on above: Order Comment: RESUL TS CHECKED AND CALLED. ACCURATELY READ BACK BY DR CALI Performed By: #### 8 4511 ####[facility] [facility].[address] MIN VOLUME 8.9 Normal [facility] Comment on above: Order Comment: RESUL TS CHECKED AND CALLED. ACCURATELY READ BACK BY DR CALI Performed By: #### 8 4511 ####[facility] [facility].[address] MODALITY AC Normal The [facility] Comment on above: Order Comment: RESUL TS CHECKED AND CALLED. ACCURATELY READ BACK BY DR CALI Performed By: #### 8 4511 ####[facility] [facility].[address] Oxygen (Bld) [Partial pressure] 239 mm[Hg] Critically high 83-108 The [facility] Comment on above: Order Comment: RESUL TS CHECKED AND CALLED. ACCURATELY READ BACK BY DR CALI Performed By: #### 8 4511 ####[facility] Oxygen saturation in Blood 97.6 % High 94.0-97.0 The [facility] Comment on above: Order Comment: RESUL TS CHECKED AND CALLED. ACCURATELY READ BACK BY DR CALI Performed By: #### 8 4511 ####[facility] PCO2 24 mmHg Critically low 35-45 The [facility] Comment on above: Order Comment: RESUL TS CHECKED AND CALLED. ACCURATELY READ BACK BY DR CALI Performed By: #### 8 4511 ####[facility] [place] PEEP 8.0 CMH20 Normal [facility] Comment on above: Order Comment: RESUL TS CHECKED AND CALLED. ACCURATELY READ BACK BY DR CALI Performed By: #### 8 4511 ####[facility] [place] pH (Bld) 7.52 [pH] High 7.35-7.45 [facility] Comment on above: Order Comment: RESUL TS CHECKED AND CALLED. ACCURATELY READ BACK BY DR CALI Performed By: #### 8 4511 ####[facility] [place] Respiratory rate 14 /min Normal [facility] Comment on above: Order Comment: RESUL TS CHECKED AND CALLED. ACCURATELY READ BACK BY DR CALI Performed By: #### 8 4511 ####[facility] [place] TIDAL VOLUME (VT) CC 550 Normal [facility] Comment on above: Order Comment: RESUL TS CHECKED AND CALLED. ACCURATELY READ BACK BY DR CALI Performed By: #### 8 4511 ####[facility] [place] [place] [address], [facility] BASIC METABOLIC PANELon 07-0 Calcium [Mass/Vol] 6.2 mg/dL Critically low 8.6-10.3 Th [facility] Comment on above: Order Comment: Check NG Tube Position Performed By: #### 1 0070, 56135, 65051, 03511 ####[facility] [place] [place] [address], [facility] Chloride [Moles/Vol] 112 mmol/L High 98-107 [facility] Comment on above: Order Comment: Check NG Tube Position Performed By: #### 1 0070, 90983, 63907, 47981 ####[facility] [place] [place] [address], [facility] CO2 [Moles/Vol] 17 mmol/L Low 21-31 The [facility] Comment on above: Order Comment: Check NG Tube Position Performed By: #### 1 0070, 19769, 07398, 56924 ####[facility] [place] [place] [address], [facility] Creatinine [Mass/Vol] 0.80 mg/dL Normal 0.60-1.20 [facility] Comment on above: Order Comment: Check NG Tube Position Performed By: #### 1 0070, 60423, 39298, 10670 ####[facility] [place] [place] [address], [facility] GFR/1.73 sq M.predicted among blacks MDRD (S/P/Bld) [Vol rate/Area] mL/min/{1.73_m2} Normal >60 [facility] Comment on above: Order Comment: Check NG Tube Position Performed By: #### 1 0070, 34154, 05491, 46619 ####[facility] [place] [facility].[address] GFR/1.73 sq M.predicted among non-blacks MDRD (S/P/Bld) [Vol rate/Area] mL/min/{1.73_m2} Normal >60 [facility] Comment on above: Order Comment: Check NG Tube Position Performed By: #### 1 0070, 44975, 32374, 60218 ####[facility] [place] [facility].[address] Glucose [Mass/Vol] 123 mg/dL High 70-100 The [facility] Comment on above: Order Comment: Check NG Tube Position Performed By: #### 1 0070, 19334, 12153, 93751 ####[place] [address] [facility].[address] Potassium [Moles/Vol] 3.1 mmol/L Low 3.5-5.1 [facility] Comment on above: Order Comment: Check NG Tube Position Performed By: #### 1 0070, 07317, 26017, 10936 ####[place] [address] [facility].[address] Sodium [Moles/Vol] 137 mmol/L Normal 136-145 The [facility] Comment on above: Order Comment: Check NG Tube Position Performed By: #### 1 0070, 94363, 75552, 56552 ####[facility] [place] [facility].[address] Urea nitrogen [Mass/Vol] 31 mg/dL High 7-25 [facility] Comment on above: Order Comment: Check NG Tube Position Performed By: #### 1 0070, 21756, 18893, 82081 ####[facility] [place] [facility] [address], [facility] CBC W/DIFFon 08-20-2021 ABS IMM GRANS 0.1 10*3/uL Normal 0.0-0.2 The [facility] Comment on above: Order Comment: Bleed ing s/p recent tracheostomy Performed By: #### 5 0103 ####[facility] [place] [facility] [place] [address], [facility] ABS NEUTROPHILS 9.2 10*3/uL High 1.6-7.6 [facility] Comment on above: Order Comment: Bleed ing s/p recent tracheostomy Performed By: #### 5 0103 ####[facility] [place] [place] [address], [facility] Basophils (Bld) [#/Vol] 0.0 10*3/uL Normal 0.0-0.2 [facility] Comment on above: Order Comment: Bleed ing s/p recent tracheostomy Performed By: #### 5 0103 ####[facility] [place] [facility] [place] [address], [facility] Basophils/100 WBC (Bld) 0.3 % Normal 0.0-1.0 T [facility] Comment on above: Order Comment: Bleed ing s/p recent tracheostomy Performed By: #### 5 0103 ####[facility] [place] [facility] [place] [address], [facility] Eosinophils (Bld) [#/Vol] 0.1 10*3/uL Normal 0.0-0.5 [facility] Comment on above: Order Comment: Bleed ing s/p recent tracheostomy Performed By: #### 5 0103 ####[facility] [place] [facility] [place] [address], [facility] Eosinophils/100 WBC (Bld) 0.4 % Normal 0.0-6.0 [facility] Comment on above: Order Comment: Bleed ing s/p recent tracheostomy Performed By: #### 5 0103 ####[facility] [place] [facility] [place] [address], [facility] Erythrocyte distribution width (RBC) [Ratio] 17.2 % High 11.5-15.0 [facility] Comment on above: Order Comment: Bleed ing s/p recent tracheostomy Performed By: #### 5 0103 ####[facility] [place] Hematocrit (Bld) [Volume fraction] 23.9 % Low 36.0-45.0 [facility] Comment on above: Order Comment: Bleed ing s/p recent tracheostomy Performed By: #### 5 0103 ####[facility] [place] Hemoglobin (Bld) [Mass/Vol] 8.1 g/dL Low 12.0-15.0 [facility] Comment on above: Order Comment: Bleed ing s/p recent tracheostomy Performed By: #### 5 0103 ####[facility] [place] IMMATURE GRANS 0.6 % Normal 0.0-1.0 [facility] Comment on above: Order Comment: Bleed ing s/p recent tracheostomy Performed By: #### 5 0103 ####[facility] [place] Lymphocytes (Bld) [#/Vol] 3.3 10*3/uL Normal 1.2-4.0 [facility] Comment on above: Order Comment: Bleed ing s/p recent tracheostomy Performed By: #### 5 0103 ####[facility] [place] Lymphocytes/100 WBC (Bld) 24.4 % Normal 20.0-45.0 [facility] Comment on above: Order Comment: Bleed ing s/p recent tracheostomy Performed By: #### 5 0103 ####[facility] [place] MCH (RBC) [Entitic mass] 30.6 pg Normal 27.0-33.0 [facility] Comment on above: Order Comment: Bleed ing s/p recent tracheostomy Performed By: #### 5 0103 ####[facility] [place] MCHC (RBC) [Mass/Vol] 33.9 g/dL Normal 32.0-35.0 [facility] Comment on above: Order Comment: Bleed ing s/p recent tracheostomy Performed By: #### 5 0103 ####[facility] [place] MCV (RBC) [Entitic vol] 90.2 fL Normal 82.0-98.0 T he [facility] Comment on above: Order Comment: Bleed ing s/p recent tracheostomy Performed By: #### 5 0103 ####[facility] [place] Monocytes (Bld) [#/Vol] 1.0 10*3/uL Normal 0.1-1.0 [facility] Comment on above: Order Comment: Bleed ing s/p recent tracheostomy Performed By: #### 5 0103 ####[facility] [place] MONOS 7.2 % Normal 5.0-12.0 [facility] Comment on above: Order Comment: Bleed ing s/p recent tracheostomy Performed By: #### 5 0103 ####[facility] [place] Neutrophils/100 WBC (Bld) 67.1 % Normal 40.0-72.0 [facility] Comment on above: Order Comment: Bleed ing s/p recent tracheostomy Performed By: #### 5 3 ####[facility] [place] Nucleated RBC/100 WBC (Bld) [Ratio] 0 % Normal 0-0 The [facility] Comment on above: Order Comment: Bleed ing s/p recent tracheostomy Performed By: #### 5 0103 ####[facility] [place] [facility].[address] PLAT CNT 328 10*3/uL Normal 150-400 The [facility] Comment on above: Order Comment: Bleed ing s/p recent tracheostomy Performed By: #### 5 0103 ####[facility] [place] RBC (Bld) [#/Vol] 2.65 10*6/uL Low 3.80-5.00 The [facility] Comment on above: Order Comment: Bleed ing s/p recent tracheostomy Performed By: #### 5 0103 ####[facility] [place] WBC (Bld) [#/Vol] 13.67 10*3/uL High 4.00-10.60 [facility] Comment on above: Order Comment: Bleed ing s/p recent tracheostomy Performed By: #### 5 0103 ####[facility] [place] [facility].[address] ABS IMM GRANS 0.2 10*3/uL Normal 0.0-0.2 [facility] Comment on above: Performed By: #### 5 0103 ####[facility] [place] ABS NEUTROPHILS 18.9 10*3/uL High 1.6-7.6 The [facility] Comment on above: Performed By: #### 5 0103 ####[facility] [place] Basophils (Bld) [#/Vol] 0.1 10*3/uL Normal 0.0-0.2 [facility] Comment on above: Performed By: #### 5 0103 ####[facility] [place] [place] [address], [facility] Basophils/100 WBC (Bld) 0.4 % Normal 0.0-1.0 T jj [facility] Comment on above: Performed By: #### 5 3 ####[facility] [place] [facility] [place] [address], [facility] Eosinophils (Bld) [#/Vol] 0.4 10*3/uL Normal 0.0-0.5 [facility] Comment on above: Performed By: #### 5 0103 ####[facility] [place] [facility] [place] [address], [facility] Eosinophils/100 WBC (Bld) 1.7 % Normal 0.0-6.0 [facility] Comment on above: Performed By: #### 5 3 ####[facility] [place] [facility].[address] Erythrocyte distribution width (RBC) [Ratio] 17.4 % High 11.5-15.0 [facility] Comment on above: Performed By: #### 5 3 ####[facility] [place] [facility].[address] Hematocrit (Bld) [Volume fraction] 25.5 % Low 36.0-45.0 [facility] Comment on above: Performed By: #### 5 3 ####[facility] [place] [facility] [place] [address], [facility] Hemoglobin (Bld) [Mass/Vol] 8.1 g/dL Low 12.0-15.0 [facility] Comment on above: Performed By: #### 3 ####[facility] [place] [place] [address], [facility] IMMATURE GRANS 0.8 % Normal 0.0-1.0 The [facility] Centerla[facility] thakurPro[facility] Comment on above: Performed By: #### 5 0103 ####[facility] [place] [facility].[address] Lymphocytes (Bld) [#/Vol] 2.8 10*3/uL Normal 1.2-4.0 [facility] Comment on above: Performed By: #### 5 3 ####[facility] [place] Lymphocytes/100 WBC (Bld) 11.7 % Low 20.0-45.0 [facility] Comment on above: Performed By: #### 3 ####[address] MCH (RBC) [Entitic mass] 31.5 pg Normal 27.0-33.0 [facility] Comment on above: Performed By: #### 3 ####[facility] [place] MCHC (RBC) [Mass/Vol] 31.8 g/dL Low 32.0-35.0 [facility] Comment on above: Performed By: #### 5 3 ####[facility] [place] MCV (RBC) [Entitic vol] 99.2 fL High 82.0-98.0 T [facility] Comment on above: Performed By: #### 5 3 ####[facility] [place] [place] [address], [facility] Monocytes (Bld) [#/Vol] 1.5 10*3/uL High 0.1-1.0 [facility] Comment on above: Performed By: #### 102 ####[place] [address], [facility] MONOS 6.2 % Normal 5.0-12.0 [facility] Comment on above: Performed By: #### 5 0103 ####[facility] [place] [facility] [place] [address], [facility] Neutrophils/100 WBC (Bld) 79.2 % High 40.0-72.0 [facility] Comment on above: Performed By: #### 5 0103 ####[facility] [place] [facility] [place] [address], [facility] Nucleated RBC/100 WBC (Bld) [Ratio] 0 % Normal 0-0 [facility] Comment on above: Performed By: #### 5 0103 ####[facility] [place] [facility] [place] [address], [facility] PLAT CNT 538 10*3/uL High 150-400 The [facility] Comment on above: Performed By: #### 5 0103 ####[facility] [place] [facility] [place] [address], [facility] RBC (Bld) [#/Vol] 2.57 10*6/uL Low 3.80-5.00 [facility] Comment on above: Performed By: #### 5 0103 ####[facility] [place] [facility] [place] [address], [facility] WBC (Bld) [#/Vol] 23.85 10*3/uL High 4.00-10.60 [facility] Comment on above: Performed By: #### 5 0103 ####[facility] [place] [facility] [place] [address], [facility] COMP METABOLIC PANELon 08-20 Albumin [Mass/Vol] 2.5 g/dL Low 3.5-5.7 [facility] Comment on above: Performed By: #### 3 5200, 76753 ####[facility] [place] [place] [address], [facility] ALKALINE PHOSPH 314 IU/L High 34-104 [facility] Comment on above: Performed By: #### 3 5199, 81797 ####[facility] [place] [place] [address], [place] ALT [Catalytic activity/Vol] 14 U/L Normal 7-52 [facility] Comment on above: Performed By: #### 3 5199, 88185 ####[facility] [place] [place] [address], [place] AST [Catalytic activity/Vol] 21 U/L Normal 13-39 [facility] Comment on above: Performed By: #### 3 5199, 93437 ####[facility] [place] [place] [address], [place] Bilirubin [Mass/Vol] 0.6 mg/dL Normal 0.3-1.0 [facility] Comment on above: Performed By: #### 3 5199, 83593 ####[facility] [place] [place] [address], [place] Calcium [Mass/Vol] 8.0 mg/dL Low 8.6-10.3 [facility] Comment on above: Performed By: #### 3 5199, 77123 ####[facility] [place] [place] [address], [place] Chloride [Moles/Vol] 101 mmol/L Normal 98-107 [facility] Comment on above: Performed By: #### 3 5199, 00999 ####[facility] [place] [place] [address], [place] CO2 [Moles/Vol] 21 mmol/L Normal 21-31 The [facility] Comment on above: Performed By: #### 3 5199, 51223 ####[facility] [place] [place] [address], [place] Creatinine [Mass/Vol] 0.99 mg/dL Normal 0.60-1.20 [facility] Comment on above: Performed By: #### 3 5199, 56139 ####[facility] [place] [place] [address], [facility] eGFR- non- 58 ml/min/1.73sq m Abnormal >60 The [facility] Comment on above: Performed By: #### 3 5199, 95388 ####[facility] [place] [place] [address], [facility] GFR/1.73 sq M.predicted among blacks MDRD (S/P/Bld) [Vol rate/Area] mL/min/{1.73_m2} Normal >60 [facility] Comment on above: Performed By: #### 3 5199, 85301 ####[facility] [place] [place] [address], [facility] Glucose [Mass/Vol] 280 mg/dL High 70-100 The [facility] Comment on above: Performed By: #### 3 5199, 53444 ####[facility] [place] [place] [address], [place] Potassium [Moles/Vol] 4.1 mmol/L Normal 3.5-5.1 [facility] Comment on above: Performed By: #### 3 5199, 03235 ####[facility] [place] [place] [address], [place] Protein [Mass/Vol] 6.5 g/dL Normal 6.0-8.3 The [facility] Comment on above: Performed By: #### 3 5199, 42957 ####[facility] [place] [place] [address], [place] Sodium [Moles/Vol] 134 mmol/L Low 136-145 The [facility] Comment on above: Performed By: #### 3 5199, 69190 ####[facility] [place] Urea nitrogen [Mass/Vol] 32 mg/dL High 7-25 [facility] Comment on above: Performed By: #### 3 5200, 61426 ####[facility] [place] CTA CHESTon 08-20-2021 CTA CHEST [facility] Department of Radiology [address] [place] [address] Patient Name: MEG GEORGES : 1965 Sex: F Age: Race: White Pt. Location: [facility] Patient Status: I Ordered Date: 08/19/2021 [...] report. Electronically signed: Charles Castillo. Transcribed by: [email or web address], User Resident: OLGA LIDIA WILLIS Electronically Signed by: CHARLES CASTILLO @ 08/20/2021 12:54 AM I personally read this/these film(s) with this resident Normal [facility] Comment on above: Order Comment: R/O A telectasis CTA NECKon 08-20-2021 CTA NECK [facility] Department of Radiology [address] [place] [address] Patient Name: MGE GEORGES : 1965 Sex: F Age: Race: [...] report. Electronically signed: Charles Castillo. Transcribed by: [email or web address], User Resident: OLGA LIDIA WILLIS Electronically Signed by: CHARLES CASTILLO @ 08/20/2021 12:51 AM I personally read this/these film(s) with this resident Normal [facility] Comment on above: Order Comment: Bleed ing s/p recent tracheostomy Endoscopy Reporton Endoscopy Report MR#: [id number] [facility] Pt. Name: Meg Georges Surgery Date: 08/20/2021 Room #: [facility] [id number] Date of : 1965 PROCEDURE NOTE ATTENDING: [...] Pozo M.D. Date Trans: 08/20/2021 05:17 P/ [id number] cc: Johny Beckman M.D. [address] Medicine [place] [address] [address] D[address]O. [facility] [address] Normal [facility] FIBRIN DEGRADATION PRODUCTon 08-20-2021 FSP 5 ug/ml Abnormal <5 ug/ml [facility] Comment on above: Order Comment: No: D o not add to previous draw Performed By: #### 6 2594 #### [facility] [place] [address] FIBRINOGENon 08-20-2021 FIBRINOGEN 527 mg/dL High 150-425 [facility] Comment on above: Performed By: #### 6 2594 #### [facility] [place] [address] FRESH FROZEN PLASMA 6 UNITSo n 08-20-2021 PRODUCT CODE 1 E2701 Normal [facility] Comment on above: Performed By: #### 8 7006 ####[facility] [place] PRODUCT CODE 2 E2701 Normal [facility] Comment on above: Performed By: #### 8 7006 ####[facility] [place] PRODUCT CODE 3 E2701 Normal [facility] Comment on above: Performed By: #### 8 7006 ####[facility] [place] [facility].[address] PRODUCT CODE 4 [id number] Normal [facility] Comment on above: Performed By: #### 8 7006 ####[facility] [place] [facility].[address] PRODUCT CODE 5 E2701 Normal [facility] Comment on above: Performed By: #### 8 7006 ####[facility] [place] [facility].[address] PRODUCT CODE 6 E2701 Normal [facility] Comment on above: Performed By: #### 8 7006 ####[facility] [place] [facility].[address] PRODUCT STATUS 1 PT Normal The [facility] Comment on above: Result Comment: Resu lt changed by IF on 08/20/2021 13:26. The previous value was XM. Result changed by IF on 08/21/2021 00:30. The previous value was IS. Performed By: #### 8 7006 ####[facility] [place] [facility].[address] PRODUCT STATUS 2 RE Normal [facility] Comment on above: Result Comment: Resu lt changed by IF on 08/20/2021 05:09. The previous value was XM. Result changed by IF on 08/20/2021 05:16. The previous value was XX. Performed By: #### 8 7006 ####[facility] [place] [facility].[address] PRODUCT STATUS 3 RE Normal [facility] Comment on above: Result Comment: Resu lt changed by IF on 08/20/2021 05:24. The previous value was XM. Result changed by IF on 08/20/2021 05:48. The previous value was XX. Performed By: #### 8 7006 ####[facility] [place] [place] [address], [facility] PRODUCT STATUS 4 RE Normal [facility] Comment on above: Result Comment: Resu lt changed by IF on 08/22/2021 16:50. The previous value was XM. Result changed by IF on 08/25/2021 01:00. The previous value was XX. Performed By: #### 8 7006 ####[facility] [facility] [place] [address], [place] PRODUCT STATUS 5 RE Normal [facility] Comment on above: Result Comment: Resu lt changed by IF on 08/20/2021 05:24. The previous value was XM. Result changed by IF on 08/20/2021 05:48. The previous value was XX. Performed By: #### 8 [id number] ####[place] [address] [place] [address], [place] PRODUCT STATUS 6 RE Normal [facility] Comment on above: Result Comment: Resu lt changed by IF on 08/20/2021 05:24. The previous value was XM. Result changed by IF on 08/20/2021 05:48. The previous value was XX. Performed By: #### 8 [id number] ####[facility] [place] [address], [place] UNIT ABO 1 A Normal [facility] Comment on above: Performed By: #### 8 7006 ####[facility] [place] [address], [place] Performed By: #### 8 9001 ####[facility] [place] [address], [place] UNIT ABO 2 A Normal [facility] Comment on above: Performed By: #### 8 7006 ####[facility] [place] [address], [place] UNIT ABO 3 A Normal [facility] Comment on above: Performed By: #### 8 7006 ####[facility] [place] [address], [facility] UNIT ABO 4 A Normal [facility] Comment on above: Performed By: #### 8 7006 ####[facility] [place] [address], [facility] UNIT ABO 5 A Normal [facility] Comment on above: Performed By: #### 8 6 ####[facility] [place] [address], [facility] UNIT ABO 6 A Normal [facility] Comment on above: Performed By: #### 8 7006 ####[facility] [place] [address], [facility] UNIT ID 1 [id number] Normal [facility] Comment on above: Performed By: #### 8 7006 ####[facility] [place] [address], [facility] UNIT ID 2 [id number] Normal [facility] Comment on above: Performed By: #### 8 7006 ####[facility] [place] [address], [facility] UNIT ID 3 [id number] Normal [facility] Comment on above: Performed By: #### 8 7006 ####[facility] [place] [address], [facility] UNIT ID 4 [id number] Normal [facility] Comment on above: Performed By: #### 8 7006 ####[facility] [place] [address], [facility] UNIT ID 5 [id number] Normal [facility] Comment on above: Performed By: #### 8 7006 ####[facility] [place] [address], [facility] UNIT ID 6 [id number] Normal [facility] Comment on above: Performed By: #### 8 7005 ####[facility] [place] [address], [facility] UNIT RH 1 Positive Normal [facility] Comment on above: Performed By: #### 8 7005 ####[facility] [place] [address], [facility] Performed By: #### 8 9001 ####[facility] [place] [address], [facility] UNIT RH 2 Positive Normal [facility] Comment on above: Performed By: #### 8 7005 ####[facility] [place] [address], [facility] UNIT RH 3 Positive Normal [facility] Comment on above: Performed By: #### 8 7005 ####[facility] [place] [address], [facility] UNIT RH 4 Positive Normal [facility] Comment on above: Performed By: #### 8 7005 ####[facility] [place] [address], [facility] UNIT RH 5 Positive Normal [facility] Comment on above: Performed By: #### 8 7005 ####[facility] [place] [address], [facility] UNIT RH 6 Positive Normal [facility] Comment on above: Performed By: #### 8 7005 ####[facility] [place] [address], [facility] LACTATE BLOODon 08-20-2021 Lactate [Moles/Vol] 1.3 mmol/L Normal .5-2.2 [facility] Comment on above: Performed By: #### 6 2594 #### [facility] [address] [place] [address], [facility] LIVER BATTERYon 08-20-2021 Albumin [Mass/Vol] 1.8 g/dL Low 3.5-5.7 [facility] Comment on above: Order Comment: Check NG Tube Position Performed By: #### 1 0070, 18773, 91765, 93174 ####[facility] [place] [address], [facility] ALKALINE PHOSPH 171 IU/L High 34-104 [facility] Comment on above: Order Comment: Check NG Tube Position Performed By: #### 1 0070, 24485, 32196, 89752 ####[facility] [place] [address], [facility] ALT [Catalytic activity/Vol] 10 U/L Normal 7-52 [facility] Comment on above: Order Comment: Check NG Tube Position Performed By: #### 1 0070, 45243, 45081, 42435 ####[facility] [place] [address], [facility] AST [Catalytic activity/Vol] 12 U/L Low 13-39 [facility] Comment on above: Order Comment: Check NG Tube Position Performed By: #### 1 0070, 51809, 86547, 51775 ####[facility] [place] [address], [place] Bilirubin [Mass/Vol] 0.4 mg/dL Normal 0.3-1.0 [facility] Comment on above: Order Comment: Check NG Tube Position Performed By: #### 1 0070, 06519, 21824, 17105 ####[facility] [place] [address], [place] Bilirubin.direct [Mass/Vol] 0.1 mg/dL Normal 0.0-0.2 [facility] Comment on above: Order Comment: Check NG Tube Position Performed By: #### 1 0070, 30732, 94572, 12243 ####[facility] [facility] [address], [facility] Protein [Mass/Vol] 4.6 g/dL Low 6.0-8.3 [facility] Comment on above: Order Comment: Check NG Tube Position Performed By: #### 1 0070, 96843, 25977, 88213 ####[facility] [facility] [place] [address], [facility] MAGNESIUM BLOODon 08-20-2021 Magnesium [Mass/Vol] 1.4 mg/dL Low 1.9-2.7 [facility] Comment on above: Order Comment: Check NG Tube Position Performed By: #### 1 0070, 11838, 50344, 11506 ####[facility] [facility] [place] [address], [facility] OSMOLALITY BLOODon 2 Osmolality [Osmolality] 309 mosm/kg High 285-305 [facility] Comment on above: Order Comment: No: D o not add to previous draw Performed By: #### 6 2594 #### [facility] [address] [facility] [address], [facility] PHOSPHORUS BLOODon 2 Phosphate [Mass/Vol] 2.4 mg/dL Low 2.5-5.0 [facility] Comment on above: Order Comment: Check NG Tube Position Performed By: #### 1 0070, 14744, 37296, 16760 ####[facility] [facility] [place] [address], [facility] PLATELET APHERESIS 1 UNITon 08-20-2021 PRODUCT CODE 1 E8341 Normal [facility] Comment on above: Performed By: #### 8 9001 ####[facility] [facility] UNIT ID 1 [id number] Normal [facility] Comment on above: Performed By: #### 8 9001 ####[facility] PRODUCT STATUS 1 RE Normal [facility] Comment on above: Result Comment: Resu lt changed by IF on 08/21/2021 01:00. The previous value was XM. Performed By: #### 8 9001 ####[facility] Result Comment: Resu lt changed by IF on 08/21/2021 08:54. The previous value was XM. Result changed by IF on 08/21/2021 18:31. The previous value was XX. Performed By: #### 8 6006 ####[facility] POC GLUCOSE LABon 08-20-2021 Glucose [Mass/Vol] 118 mg/dL High 70-100 [facility] Comment on above: Performed By: #### 8 5499 ####[place] [address] Glucose [Mass/Vol] 142 mg/dL High 70-100 [facility] Comment on above: Performed By: #### 8 5499 ####[facility] Glucose [Mass/Vol] 160 mg/dL High 70-100 [facility] Comment on above: Performed By: #### 8 5499 ####[facility] [place] [address], [facility] Glucose [Mass/Vol] 177 mg/dL High 70-100 [facility] Comment on above: Performed By: #### 8 5499 ####[facility] [address] POC SARS COV2 ANTIGEN NEGATI VEon 08-20-2021 POC SARS COV2 ANTIGEN NEG Negative Normal NEGATIVE [facility] Comment on above: Result [...] from SARS-CoV-2 in direct nasopharyngeal swab (MANAGER MOBILE) specimens from individuals who are suspected of [...] Accreditation. Performed By: #### 3 2044 #### [address] PORTABLE CHEST 1 VIEWon PORTABLE CHEST 1 VIEW [facility] Department of Radiology [address] [place] [id number] Patient Name: MEG GEORGES : 1965 Sex: F Age: Race: White Pt. Location: [id number] Patient Status: I Ordered Date: 08/20/2021 5:20:00 [...] FINDINGS: Enteric tube tip outside the inferior [id number], presumably within the stomach. Stable tracheostomy cannula. Stable cardiomediastinal silhouette. No new focal consolidation, significant effusion, or pneumothorax. Right upper extremity PICC, its tip at the mid SVC. IMPRESSION: Enteric tube tip likely within the stomach, outside the inferior [id number] however Electronically signed: KIKE DICKSON. Transcribed by: [email or web address], User Resident: Electronically Signed by: KIKE DICKSON @ 08/20/2021 07:46 PM Normal [facility] Comment on above: Order Comment: Check NG Tube Position PORTABLE CHEST 1 VIEW [facility] Department of Radiology [address] [place] [address] Patient Name: MEG GEORGES : 1965 Sex: F Age: Race: White Pt. Location: [place] [address] Patient Status: I Ordered Date: 08/20/2021 7:50:00 [...] indeterminate. Electronically signed: Blossom Gongora. Transcribed by: [email or web address], User Resident: BLOSSOM GONGORA Electronically Signed by: BLOSSOM GONGORA @ 08/20/2021 09:10 AM I personally read this/these film(s) with this resident Normal [facility] Comment on above: Order Comment: evalu ate for Atelectasis PORTABLE CHEST 1 VIEW [facility] Department of Radiology [address] [place] [id number] Patient Name: MEG GEORGES : 1965 Sex: F Age: Race: White Pt. Location: [facility] Patient Status: E Ordered Date: 08/19/2021 [...] abnormality. Electronically signed: Darci Monahan. Transcribed by: [id number], User Resident: Electronically Signed by: DARCI MONAHAN @ 08/19/2021 10:41 PM Normal [facility] Comment on above: Order Comment: Check NG Tube Position PROTHROMBIN TIMEon 2 INR Coag (PPP) [Relative time] 1.70 {INR} High 0.91-1.16 [facility] Comment on above: Order [...] 5 6101 ####[facility] PT Coag (PPP) [Time] 19.7 s High 12.3-14.8 [facility] Comment on above: Order Comment: Check NG Tube Position Result Comment: ALL RESULTS MUST BE INTERPRETED WITH RESPECT TO BLOOD DRAWING ARTIFACT OR DILUTION ERROR OF ANTICOAGULANT AT THE TIME OF SAMPLING. Performed By: #### 5 6101 ####[facility] [facility].[address] INR Coag (PPP) [Relative time] 1.47 {INR} High 0.91-1.16 [facility] Comment on above: Result [...] CHEST 1995;108:231S-246S. Performed By: #### 5 6788, 14370, 36892, 29503 ####[facility] [place] [address], [facility] PT Coag (PPP) [Time] 17.7 s High 12.3-14.8 [facility] Comment on above: Result Comment: ALL RESULTS MUST BE INTERPRETED WITH RESPECT TO BLOOD DRAWING ARTIFACT OR DILUTION ERROR OF ANTICOAGULANT AT THE TIME OF SAMPLING. Performed By: #### 5 6788, 72576, 09625, 62217 ####[facility] [id number], [facility] RBC'S 6 UNITSon 08-20-2021 CROSSMATCH INTERP 1 COMP Normal The [facility] Comment on above: Performed By: #### 8 6006 ####[facility] [place] [address], [facility] CROSSMATCH INTERP 2 COMP Normal The [facility] Comment on above: Performed By: #### 8 6006 ####[facility] [place] [address], [facility] CROSSMATCH INTERP 3 COMP Normal The [facility] Comment on above: Performed By: #### 8 6006 ####[facility] [place] [address], [place] CROSSMATCH INTERP 4 COMP Normal [facility] Comment on above: Performed By: #### 8 6006 ####[facility] [place] [address], [place] CROSSMATCH INTERP 5 COMP Normal [facility] Comment on above: Performed By: #### 8 6006 ####[facility] [place] [address], [place] CROSSMATCH INTERP 6 COMP Normal [facility] Comment on above: Performed By: #### 8 6006 ####[facility] [place] [address], [facility] PRODUCT CODE 1 E0336 Normal [facility] Comment on above: Performed By: #### 8 6006 ####[facility] [place] [address], [facility] PRODUCT CODE 2 E0336 Normal [facility] Comment on above: Performed By: #### 8 6006 ####[facility] [place] [address], [facility] PRODUCT CODE 3 E0336 Normal [facility] Comment on above: Performed By: #### 8 6006 ####[facility] [facility] [place] [address], [facility] PRODUCT CODE 4 E0336 Normal [facility] Comment on above: Performed By: #### 8 6006 ####[facility] [facility] [place] [place] [address], [facility] PRODUCT CODE 5 E0336 Normal [facility] Comment on above: Performed By: #### 8 6006 ####[facility] [facility] [place] [place] [address], [facility] PRODUCT CODE 6 E0336 Normal [facility] Comment on above: Performed By: #### 8 6006 ####[facility] [place] [address], [facility] PRODUCT STATUS 2 RE Normal [facility] Comment on above: Result Comment: Resu lt changed by IF on 08/20/2021 05:40. The previous value was XM. Result changed by IF on 08/20/2021 05:48. The previous value was XX. Performed By: #### 8 6006 ####[facility] [place] [address], [place] PRODUCT STATUS 3 RE Normal [facility] Comment on above: Result Comment: Resu lt changed by IF on 08/22/2021 01:00. The previous value was XM. Performed By: #### 8 6006 ####[facility] [place] [address], [place] PRODUCT STATUS 4 RE Normal [facility] Comment on above: Result Comment: Resu lt changed by IF on 08/20/2021 05:40. The previous value was XM. Result changed by IF on 08/20/2021 05:48. The previous value was XX. Performed By: #### 8 6006 ####[facility] [place] [address], [place] PRODUCT STATUS 5 RE Normal [facility] Comment on above: Result Comment: Resu lt changed by IF on 08/22/2021 01:00. The previous value was XM. Performed By: #### 8 6006 ####[facility] [place] [address], [place] PRODUCT STATUS 6 RE Normal [facility] Comment on above: Result Comment: Resu lt changed by IF on 08/21/2021 08:54. The previous value was XM. Result changed by IF on 08/22/2021 01:00. The previous value was XX. Performed By: #### 8 6006 ####[facility] [place] [address], [place] UNIT ABO 1 A Normal [facility] Comment on above: Performed By: #### 8 6006 ####[facility] [place] [address], [place] UNIT ABO 2 A Normal [facility] Comment on above: Performed By: #### 8 6006 ####[facility] [place] [address], [place] UNIT ABO 3 A Normal [facility] Comment on above: Performed By: #### 8 6006 ####[facility] [place] [address], [facility] UNIT ABO 4 A Normal [facility] Comment on above: Performed By: #### 8 6006 ####[facility] [place] [address], [facility] UNIT ABO 5 A Normal [facility] Comment on above: Performed By: #### 8 6006 ####[facility] [place] [address], [facility] UNIT ABO 6 A Normal [facility] Comment on above: Performed By: #### 8 6006 ####[facility] [place] [address], [facility] UNIT ID 1 [id number] Normal [facility] Comment on above: Performed By: #### 8 6006 ####[facility] [place] [address], [facility] UNIT ID 2 [id number] Normal [facility] Comment on above: Performed By: #### 8 6006 ####[facility] [place] [address], [facility] UNIT ID 3 [id number] Normal [facility] Comment on above: Performed By: #### 8 6006 ####[facility] [place] [address], [facility] UNIT ID 4 [id number] Normal [facility] Comment on above: Performed By: #### 8 6006 ####[facility] [place] [address], [facility] UNIT ID 5 [id number] Normal [facility] Comment on above: Performed By: #### 8 6006 ####[facility] [place] [address], [facility] UNIT ID 6 [id number] Normal [facility] Comment on above: Performed By: #### 8 6006 ####[facility] [place] [address], [facility] UNIT RH 1 Positive Normal [facility] Comment on above: Performed By: #### 8 6006 ####[facility] [place] [address], [facility] UNIT RH 2 Positive Normal [facility] Comment on above: Performed By: #### 8 6006 ####[facility] [place] [address], [facility] UNIT RH 3 Positive Normal [facility] Comment on above: Performed By: #### 8 6006 ####[facility] [place] [address], [facility] UNIT RH 4 Positive Normal [facility] Comment on above: Performed By: #### 8 6006 ####[facility] [place] [address], [facility] UNIT RH 5 Positive Normal [facility] Comment on above: Performed By: #### 8 6006 ####[facility] [place] [address], [facility] UNIT RH 6 Positive Normal [facility] Comment on above: Performed By: #### 8 6006 ####[facility] [place] [address], [facility] TRIGLYCERIDES BLOODon 2021 Triglyceride [Mass/Vol] 147 mg/dL Normal 40-149 T [facility] Comment on above: Order Comment: No: D o not add to previous draw Result Comment: TRIG LYCERIDE REFERENCE RANGE: 20 YEARS AND OLDER CARDIOVASCULAR RISK LESS THAN 150 mg/dl LOW RISK 150 TO 199 mg/dl BORDERLINE RISK 200 mg/dl AND GREATER HIGH RISK Performed By: #### 6 2594 #### [facility] [address] [facility] [address], [facility] TROPONIN-Ion 08-20-2021 Troponin I.cardiac [Mass/Vol] 0.03 ng/mL Normal 0.00-0.04 [facility] Comment on above: Result Comment: REFE RENCE RANGES: 0.00 - 0.04 ng/ml NORMAL 0.05 - 0.50 ng/ml INDETERMINATE > 0.50 ng/ml CONSISTENT WITH AN M.I. Performed By: #### 3 5200, 01575 ####[facility] TYPE AND CROSSMATCHon 2021 ABO INTERPRETATION A Normal [facility] Comment on above: Performed By: #### 6 2594 #### [facility] [facility] [address] [facility] [address], [facility] RH INTERPRETATION Positive Normal [facility] Comment on above: Performed By: #### [id number] #### [facility] [address] [facility] [address], [facility] rbc emergency releaseon 07-0 CROSSMATCH INTERP 1 COMP Normal The [facility] Comment on above: Performed By: #### R BCER ####[facility] CROSSMATCH INTERP 2 COMP Normal The [facility] Comment on above: Result Comment: This result added by IF on 08/20/2021 02:44. Performed By: #### R BCER ####[facility] [place] [address], [facility] CROSSMATCH INTERP 3 COMP Normal The [facility] Comment on above: Result Comment: This result added by IF on 08/20/2021 02:44. Performed By: #### R BCER ####[facility] [facility].[address] PRODUCT CODE 1 [id number] Normal The [facility] Comment on above: Performed By: #### R BCER ####[facility] [facility].[address] PRODUCT CODE 2 [id number] Normal The [facility] Comment on above: Performed By: #### R BCER ####[facility] [facility].[address] PRODUCT CODE 3 [id number] Normal The [facility] Comment on above: Performed By: #### R BCER ####[facility] [facility].[address] PRODUCT STATUS 1 PT Normal The [facility] Comment on above: Result Comment: Resu lt changed by IF on 08/20/2021 02:42. The previous value was EI. Result changed by IF on 08/21/2021 00:30. The previous value was PI. Performed By: #### R BCER ####[facility] [facility].[address] PRODUCT STATUS 2 PT Normal The [facility] Comment on above: Result Comment: Resu lt changed by IF on 08/20/2021 02:44. The previous value was EI. Result changed by IF on 08/21/2021 00:30. The previous value was PI. Performed By: #### R BCER ####[facility] [facility].[address] PRODUCT STATUS 3 PT Normal The [facility] Comment on above: Result Comment: Resu lt changed by IF on 08/20/2021 02:44. The previous value was EI. Result changed by IF on 08/21/2021 00:30. The previous value was PI. Performed By: #### R BCER ####[facility] [place] [address], [facility] UNIT ABO 1 O Normal The [facility] Comment on above: Performed By: #### R BCER ####[facility] [place] [address], [facility] UNIT ABO 2 O Normal The [facility] Comment on above: Performed By: #### R BCER ####[facility] [place] [address], [facility] UNIT ABO 3 O Normal The [facility] Comment on above: Performed By: #### R BCER ####[facility] [place] [address], [facility] UNIT ID 1 [id number] Normal The [facility] Comment on above: Performed By: #### R BCER ####[facility] [place] [address], [facility] UNIT ID 2 [id number] Normal The [facility] Comment on above: Performed By: #### R BCER ####[facility] [place] [address], [facility] UNIT ID 3 [id number] Normal The [facility] Comment on above: Performed By: #### R BCER ####[facility] [place] [address], [facility] UNIT RH 1 Negative Normal The [facility] Comment on above: Performed By: #### R BCER ####[facility] [place] [address], [place] UNIT RH 2 Negative Normal The [facility] Comment on above: Performed By: #### R BCER ####[facility] [place] [address], [facility] UNIT RH 3 Negative Normal The [facility] Comment on above: Performed By: #### R BCER ####[facility] BRAIN WO CONTRASTon 08-15 CT BRAIN WO CONTRAST [facility] Department of Radiology [address] [place] [address] Patient Name: MEG GEORGES : 1965 Sex: F Age: Race: White Pt. Location: LPOP Patient Status: Ordered Date: 08/15/2021 12:05:00 PM Completed Date: 08/15/2021 04:06 PM Requesting Provider: GANGA SAVAGE Attending Provider: Report Copy To: Signs & Symptoms: R/O Bleed History: Order in [facility] [phone] Trach/vent Comments: Exam: CT BRAIN WO CONTRAST [...] findings. Electronically signed: Angel Beal. Transcribed by: [email or web address], User Resident: Electronically Signed by: ANGEL BEAL @ 08/15/2021 04:12 PM Normal The [facility] Basic Metabolic Panel w/ Ref rafael to MGon 08-10-2021 Anion gap [Moles/Vol] 11 mmol/L 9 - 17 mmol/L [facility] Calcium [Mass/Vol] 8.5 mg/dL Low 8.6 - 10. 4 mg/dL [facility] Chloride [Moles/Vol] 107 mmol/L 98 - 10 7 mmol/L [facility] CO2 [Moles/Vol] 24 mmol/L 20 - 31 mmol/L [facility] Creatinine [Mass/Vol] 0.54 mg/dL 0.50 - 0.90 mg/dL [facility] GFR >60 >60 mL/min [facility] GFR Non- >60 >60 mL/min [facility] GFR/1.73 sq M.predicted MDRD (S/P/Bld) [Vol rate/Area] [facility] Glucose [Mass/Vol] 150 mg/dL High 70 - 99 mg/dL [facility] Interpretation and review of laboratory results Abnormal [facility] Potassium [Moles/Vol] 3.3 mmol/L Low 3.7 - 5.3 mmol/L [facility] Sodium [Moles/Vol] 142 mmol/L 135 - 144 mmol/L [facility] Urea nitrogen (BldV) [Mass/Vol] 11 mg/dL 6 - 20 mg/dL [facility] CBC with Auto Differentialon 08-10-2021 Absolute Eos # 0.45 High [facility] Absolute Immature Granulocyte <0.03 [facility] Absolute Lymph # 2.27 [facility] Absolute Lajas # 0.[address] [facility] Basophils (Bld) [#/Vol] 0.05 10*3/uL [facility] Basophils/100 WBC (Bld) 1 % 0 - 2 % B ON [facility] Eosinophils/100 WBC (Bld) 5 % High 1 - 4 % [facility] Hematocrit (Bld) [Volume fraction] 28.0 % Low 36.3 - 47.1 % [facility] Hemoglobin (Bld) [Mass/Vol] 8.9 g/dL Low 11.9 - 15.1 g/dL [facility] Immature granulocytes/100 WBC (Bld) 0 % 0 [facility] Interpretation and review of laboratory results Abnormal [facility] Lymphocytes/100 WBC (Bld) 25 % 24 - 43 % [facility] MCH (RBC) [Entitic mass] 31.3 pg 25.2 - 33.5 pg [facility] MCHC (RBC) [Mass/Vol] 31.8 g/dL 28.4 - 34.8 g/dL [facility] MCV (RBC) [Entitic vol] 98.6 fL 82.6 - 102.9 fL [facility] Monocytes/100 WBC (Bld) 7 % 3 - 12 % B ON [facility] NRBC Automated 0.0 0.0 per 100 WBC [facility] Platelet distribution width (Bld) [Ratio] 17.5 % High 11.8 - 14.4 % [facility] Platelet mean volume (Bld) [Entitic vol] 8.8 fL 8.1 - 13.5 fL [facility] Platelets (Bld) [#/Vol] 576 10*3/uL High [facility] RBC (Bld) [#/Vol] 2.84 10*6/uL Low 3.95 - 5.1 1 m/uL [facility] RBC (Bld) [#/Vol] ANISOCYTOSIS PRESENT [facility] Seg Neutrophils 62 % 36 - 65 % [facility] Segs Absolute 5.62 [facility] WBC (Bld) [#/Vol] 9.0 10*3/uL [facility] Magnesiumon 08-10-2021 Magnesium [Mass/Vol] 1.8 mg/dL 1.6 - 2 .6 mg/dL [facility] POC Glucose Fingerstickon Glucose [Mass/Vol] 188 mg/dL High 65 - 105 mg/dL [facility] Interpretation and review of laboratory results Abnormal [facility] Glucose [Mass/Vol] 218 mg/dL High 65 - 105 mg/dL [facility] Interpretation and review of laboratory results Abnormal [facility] Glucose [Mass/Vol] 133 mg/dL High 65 - 105 mg/dL [facility] Interpretation and review of laboratory results Abnormal [facility] POC Glucose Fingerstickon Glucose [Mass/Vol] 204 mg/dL High 65 - 105 mg/dL [facility] Interpretation and review of laboratory results Abnormal [facility] Glucose [Mass/Vol] 184 mg/dL High 65 - 105 mg/dL [facility] Interpretation and review of laboratory results Abnormal [facility] Glucose [Mass/Vol] 202 mg/dL High 65 - 105 mg/dL [facility] Interpretation and review of laboratory results Abnormal [facility] Glucose [Mass/Vol] 126 mg/dL High 65 - 105 mg/dL [facility] Interpretation and review of laboratory results Abnormal [facility] Basic Metabolic Panel w/ Ref rafael to MGon 08-08-2021 Anion gap [Moles/Vol] 11 mmol/L 9 - 17 mmol/L [facility] Calcium [Mass/Vol] 7.9 mg/dL Low 8.6 - 10. 4 mg/dL [facility] Chloride [Moles/Vol] 108 mmol/L High 98 - 10 7 mmol/L [facility] CO2 [Moles/Vol] 22 mmol/L 20 - 31 mmol/L [facility] Creatinine [Mass/Vol] 0.59 mg/dL 0.50 - 0.90 mg/dL [facility] GFR >60 >60 mL/min [facility] GFR Non- >60 >60 mL/min [facility] GFR/1.73 sq M.predicted MDRD (S/P/Bld) [Vol rate/Area] [facility] Glucose [Mass/Vol] 193 mg/dL High 70 - 99 mg/dL [facility] Interpretation and review of laboratory results Abnormal [facility] Potassium [Moles/Vol] 3.8 mmol/L 3.7 - 5.3 mmol/L [facility] Sodium [Moles/Vol] 141 mmol/L 135 - 144 mmol/L [facility] Urea nitrogen (BldV) [Mass/Vol] 11 mg/dL 6 - 20 mg/dL [facility] CBC with Auto Differentialon 08-08-2021 Absolute Eos # 0.29 [facility] Absolute Immature Granulocyte 0.04 [facility] Absolute Lymph # 2.17 [facility] Absolute Lajas # 0.64 [facility] Basophils (Bld) [#/Vol] 0.04 10*3/uL [facility] Basophils/100 WBC (Bld) 0 % 0 - 2 % B [facility] Eosinophils/100 WBC (Bld) 3 % 1 - 4 % [facility] Hematocrit (Bld) [Volume fraction] 24.6 % Low 36.3 - 47.1 % [facility] Hemoglobin (Bld) [Mass/Vol] 8.0 g/dL Low 11.9 - 15.1 g/dL [facility] Immature granulocytes/100 WBC (Bld) 0 % 0 [facility] Interpretation and review of laboratory results Abnormal [facility] Lymphocytes/100 WBC (Bld) 23 % Low 24 - 43 % [facility] MCH (RBC) [Entitic mass] 31.7 pg 25.2 - 33.5 pg [facility] MCHC (RBC) [Mass/Vol] 32.5 g/dL 28.4 - 34.8 g/dL [facility] MCV (RBC) [Entitic vol] 97.6 fL 82.6 - 102.9 fL [facility] Monocytes/100 WBC (Bld) 7 % 3 - 12 % B ON [facility] NRBC Automated 0.0 0.0 per 100 WBC [facility] Platelet distribution width (Bld) [Ratio] 17.8 % High 11.8 - 14.4 % [facility] Platelet mean volume (Bld) [Entitic vol] 8.9 fL 8.1 - 13.5 fL [facility] Platelets (Bld) [#/Vol] 514 10*3/uL High [facility] RBC (Bld) [#/Vol] 2.52 10*6/uL Low 3.95 - 5.1 1 m/uL [facility] RBC (Bld) [#/Vol] ANISOCYTOSIS PRESENT [facility] Seg Neutrophils 67 % High 36 - 65 % [facility] Segs Absolute 6.36 [facility] WBC (Bld) [#/Vol] 9.5 10*3/uL [facility] EKG 12 LeadOrdered By: Armando Galloway on 08-08-2021 Atrial Rate 90 BPM [facility] Work Phone: P [place]aw[place] 43 degrees [facility] Work Phone: P-R Interval 122 ms [facility] Work Phone: Q-T Interval 374 ms [facility] Work Phone: QRS Duration 78 ms [facility] Work Phone: QTc Calculation (Bazett) 457 ms [facility] Work Phone: R [place] -4 degrees [facility] Work Phone: T [place] 51 degrees [facility] Work Phone: Ventricular Rate 90 BPM [email or web address] [email or web address] Work Phone: [facility] Work Phone: EKG 12 Leadon 08-08-2021 PN STV MUSE [employer] Work Phone: POC Glucose Fingerstickon Glucose [Mass/Vol] 147 mg/dL High 65 - 105 mg/dL [facility] Interpretation and review of laboratory results Abnormal [facility] Glucose [Mass/Vol] 157 mg/dL High 65 - 105 mg/dL [facility] Interpretation and review of laboratory results Abnormal [facility] Glucose [Mass/Vol] 207 mg/dL High 65 - 105 mg/dL [facility] Interpretation and review of laboratory results Abnormal [facility] Glucose [Mass/Vol] 214 mg/dL High 65 - 105 mg/dL [facility] Interpretation and review of laboratory results Abnormal [facility] POC Glucose Fingerstickon Glucose [Mass/Vol] 206 mg/dL High 65 - 105 mg/dL [facility] Interpretation and review of laboratory results Abnormal [facility] Glucose [Mass/Vol] 202 mg/dL High 65 - 105 mg/dL [facility] Interpretation and review of laboratory results Abnormal [facility] Glucose [Mass/Vol] 179 mg/dL High 65 - 105 mg/dL [facility] Interpretation and review of laboratory results Abnormal [facility] Glucose [Mass/Vol] 144 mg/dL High 65 - 105 mg/dL [facility] Interpretation and review of laboratory results Abnormal [facility] Glucose [Mass/Vol] 154 mg/dL High 65 - 105 mg/dL [facility] Interpretation and review of laboratory results Abnormal [facility] Glucose [Mass/Vol] 150 mg/dL High 65 - 105 mg/dL [facility] Interpretation and review of laboratory results Abnormal [facility] Glucose [Mass/Vol] 153 mg/dL High 65 - 105 mg/dL [facility] [email or web address] Interpretation and review of laboratory results Abnormal [facility]ALTH[facility] [email or web address] TSHon 08-07-2021 Interpretation and review of laboratory results Abnormal [facility] [email or web address] TSH Qn 7.90 m[IU]/L High [facility] [email or web address] [facility] XR CERVICAL SPINE FLEXION AN D EXTENSIONon 08-07-2021 MHPN RIS CONSOLIDATED MHPN RIS CONSOLIDATED [facility] [email or web address] Work Phone: Radiology Study observation (narrative) ARASELI Kalila [facility] [employer] Work Phone: XR CERVICAL SPINE FLEXION AN D EXTENSIONOrdered By: Paramjit Saenz on 08-07-2021 [facility] Work Phone: Basic Metabolic Panel w/ Ref rafael to MGon 08-06-2021 Anion gap [Moles/Vol] 11 mmol/L 9 - 17 mmol/L [facility] Calcium [Mass/Vol] 8.5 mg/dL Low 8.6 - 10. 4 mg/dL [facility] Chloride [Moles/Vol] 109 mmol/L High 98 - 10 7 mmol/L [facility] CO2 [Moles/Vol] 23 mmol/L 20 - 31 mmol/L [facility] Creatinine [Mass/Vol] 0.55 mg/dL 0.50 - 0.90 mg/dL [facility] GFR >60 >60 mL/min [facility] GFR Non- >60 >60 mL/min [facility] GFR/1.73 sq M.predicted MDRD (S/P/Bld) [Vol rate/Area] [facility] Glucose [Mass/Vol] 48 mg/dL Low 70 - 99 mg/dL [facility] [email or web address] Interpretation and review of laboratory results Abnormal [facility] Potassium [Moles/Vol] 3.6 mmol/L Low 3.7 - 5.3 mmol/L [facility] [email or web address] Sodium [Moles/Vol] 143 mmol/L 135 - 144 mmol/L [facility] [email or web address] Urea nitrogen (BldV) [Mass/Vol] 11 mg/dL 6 - 20 mg/dL [facility] CBC with Auto Differentialon 08-06-2021 Absolute Eos # 0.28 [facility] Absolute Immature Granulocyte 0.07 [facility] Absolute Lymph # 2.04 [facility] Absolute Lajas # 0.61 [facility] Basophils (Bld) [#/Vol] 0.04 10*3/uL [facility] Basophils/100 WBC (Bld) 0 % 0 - 2 % B ON [facility] Eosinophils/100 WBC (Bld) 2 % 1 - 4 % [facility] Hematocrit (Bld) [Volume fraction] 26.3 % Low 36.3 - 47.1 % [facility] Hemoglobin (Bld) [Mass/Vol] 8.6 g/dL Low 11.9 - 15.1 g/dL [facility] Immature granulocytes/100 WBC (Bld) 1 % High 0 [facility] Interpretation and review of laboratory results Abnormal [facility] Lymphocytes/100 WBC (Bld) 17 % Low 24 - 43 % [facility] MCH (RBC) [Entitic mass] 31.9 pg 25.2 - 33.5 pg [facility] MCHC (RBC) [Mass/Vol] 32.7 g/dL 28.4 - 34.8 g/dL [facility] MCV (RBC) [Entitic vol] 97.4 fL 82.6 - 102.9 fL [facility] Monocytes/100 WBC (Bld) 5 % 3 - 12 % B ON [facility] NRBC Automated 0.0 0.0 per 100 WBC [facility] Platelet distribution width (Bld) [Ratio] 18.0 % High 11.8 - 14.4 % [facility] Platelet mean volume (Bld) [Entitic vol] 8.4 fL 8.1 - 13.5 fL [facility] Platelets (Bld) [#/Vol] 565 10*3/uL High [facility] RBC (Bld) [#/Vol] 2.70 10*6/uL Low 3.95 - 5.1 1 m/uL [facility] RBC (Bld) [#/Vol] ANISOCYTOSIS PRESENT [facility] Seg Neutrophils 75 % High 36 - 65 % [facility] Segs Absolute 9.28 High [facility] WBC (Bld) [#/Vol] 12.3 10*3/uL [facility] No Panel Informationon 08-06 Interpretation and review of laboratory results Abnormal [facility] POC Glucose Fingerstickon Glucose [Mass/Vol] 158 mg/dL High 65 - 105 mg/dL [facility] Interpretation and review of laboratory results Abnormal [facility] Glucose [Mass/Vol] 125 mg/dL High 65 - 105 mg/dL [facility] Interpretation and review of laboratory results Abnormal [facility] Glucose [Mass/Vol] 128 mg/dL High 65 - 105 mg/dL [facility] Interpretation and review of laboratory results Abnormal [facility] Glucose [Mass/Vol] 106 mg/dL High 65 - 105 mg/dL [facility] Interpretation and review of laboratory results Abnormal [facility] Glucose [Mass/Vol] 109 mg/dL High 65 - 105 mg/dL [facility] Interpretation and review of laboratory results Abnormal [facility] Glucose [Mass/Vol] 39 mg/dL Critically low 65 - 10 5 mg/dL [facility] Interpretation and review of laboratory results Abnormal [facility] Glucose [Mass/Vol] 43 mg/dL Low 65 - 105 mg/dL [facility] Glucose [Mass/Vol] 116 mg/dL High 65 - 105 mg/dL [facility] Arterial Blood Gas, POCon FIO2 30.0 [facility] HCO3 (Bld) [Moles/Vol] 26.0 mmol/L 21.0 - 28.0 mmol/L [facility] O2 Device/Flow/% Adult Ventilator [facility] Oxygen saturation in Blood 99 % High 94.0 - 98.0 % [facility] POC pCO2 38.7 [facility] POC pH 7.435 [facility] POC PO2 112.3 High [facility] Positive Base Excess, Art 2 [facility] Sample Site Arterial Line [facility] Basic Metabolic Panel w/ Ref rafael to MGon 08-05-2021 Anion gap [Moles/Vol] 11 mmol/L 9 - 17 mmol/L [facility] Calcium [Mass/Vol] 8.5 mg/dL Low 8.6 - 10. 4 mg/dL [facility] Chloride [Moles/Vol] 109 mmol/L High 98 - 10 7 mmol/L [facility] CO2 [Moles/Vol] 23 mmol/L 20 - 31 mmol/L [facility] Creatinine [Mass/Vol] 0.53 mg/dL 0.50 - 0.90 mg/dL [facility] GFR >60 >60 mL/min [facility] GFR Non- >60 >60 mL/min [facility] GFR/1.73 sq M.predicted MDRD (S/P/Bld) [Vol rate/Area] [facility] Glucose [Mass/Vol] 121 mg/dL High 70 - 99 mg/dL [facility] Interpretation and review of laboratory results Abnormal [facility] Potassium [Moles/Vol] 3.5 mmol/L Low 3.7 - 5.3 mmol/L [facility] Sodium [Moles/Vol] 143 mmol/L 135 - 144 mmol/L [facility] Urea nitrogen (BldV) [Mass/Vol] 14 mg/dL 6 - 20 mg/dL [facility] [place] CBC with Auto Differentialon 08-05-2021 Absolute Eos # 0.25 [facility] Absolute Immature Granulocyte 0.05 [facility] Absolute Lymph # 1.83 [facility] Absolute Lajas # 0.57 [facility] Basophils (Bld) [#/Vol] 10*3/uL B ON [facility] Basophils/100 WBC (Bld) 0 % 0 - 2 % B ON [facility] Eosinophils/100 WBC (Bld) 3 % 1 - 4 % [facility] Hematocrit (Bld) [Volume fraction] 24.2 % Low 36.3 - 47.1 % [facility] Hemoglobin (Bld) [Mass/Vol] 7.7 g/dL Low 11.9 - 15.1 g/dL [facility] Immature granulocytes/100 WBC (Bld) 1 % High 0 [facility] Interpretation and review of laboratory results Abnormal [facility] Lymphocytes/100 WBC (Bld) 19 % Low 24 - 43 % [facility] MCH (RBC) [Entitic mass] 31.2 pg 25.2 - 33.5 pg [facility] MCHC (RBC) [Mass/Vol] 31.8 g/dL 28.4 - 34.8 g/dL [facility] MCV (RBC) [Entitic vol] 98.0 fL 82.6 - 102.9 fL [facility] Monocytes/100 WBC (Bld) 6 % 3 - 12 % B [facility] NRBC Automated 0.0 0.0 per 100 WBC [facility] Platelet distribution width (Bld) [Ratio] 18.3 % High 11.8 - 14.4 % [facility] Platelet mean volume (Bld) [Entitic vol] 8.6 fL 8.1 - 13.5 fL [facility] Platelets (Bld) [#/Vol] 458 10*3/uL High [facility] RBC (Bld) [#/Vol] 2.47 10*6/uL Low 3.95 - 5.1 1 m/uL [facility] RBC (Bld) [#/Vol] ANISOCYTOSIS PRESENT [facility] Seg Neutrophils 71 % High 36 - 65 % [facility] Segs Absolute 6.77 [facility] WBC (Bld) [#/Vol] 9.5 10*3/uL [facility] Magnesiumon 08-05-2021 Magnesium [Mass/Vol] 1.8 mg/dL 1.6 - 2 .6 mg/dL [facility] No Panel Informationon 08-05 Interpretation and review of laboratory results Abnormal [facility] POC Glucose Fingerstickon Glucose [Mass/Vol] 130 mg/dL High 65 - 105 mg/dL [facility] Interpretation and review of laboratory results Abnormal [facility] Glucose [Mass/Vol] 139 mg/dL High 65 - 105 mg/dL [facility] Interpretation and review of laboratory results Abnormal [facility] Glucose [Mass/Vol] 126 mg/dL High 65 - 105 mg/dL [facility] Interpretation and review of laboratory results Abnormal [facility] Glucose [Mass/Vol] 151 mg/dL High 65 - 105 mg/dL [facility] Interpretation and review of laboratory results Abnormal [facility] POCT Glucoseon 08-05-2021 Glucose [Mass/Vol] 112 mg/dL High 74 - 100 mg/dL [facility] [email or web address] Basic Metabolic Panel w/ Ref rafael to MGon 08-04-2021 Anion gap [Moles/Vol] 11 mmol/L 9 - 17 mmol/L [facility] Calcium [Mass/Vol] 8.1 mg/dL Low 8.6 - 10. 4 mg/dL [facility] Chloride [Moles/Vol] 108 mmol/L High 98 - 10 7 mmol/L [facility] CO2 [Moles/Vol] 22 mmol/L 20 - 31 mmol/L [facility] Creatinine [Mass/Vol] 0.57 mg/dL 0.50 - 0.90 mg/dL [facility] GFR >60 >60 mL/min [facility] GFR Non- >60 >60 mL/min [facility] GFR/1.73 sq M.predicted MDRD (S/P/Bld) [Vol rate/Area] [facility] Glucose [Mass/Vol] 195 mg/dL High 70 - 99 mg/dL [facility] Interpretation and review of laboratory results Abnormal [facility] Potassium [Moles/Vol] 3.5 mmol/L Low 3.7 - 5.3 mmol/L [facility] Sodium [Moles/Vol] 141 mmol/L 135 - 144 mmol/L [facility] Urea nitrogen (BldV) [Mass/Vol] 17 mg/dL 6 - 20 mg/dL [facility] CBC with Auto Differentialon 08-04-2021 Absolute [facility]os # 0.24 [facility] Absolute Immature Granulocyte 0.07 [facility] Absolute Lymph # 1.77 [facility] Absolute Lajas # 0.72 [facility] Basophils (Bld) [#/Vol] 10*3/uL B ON [facility] Basophils/100 WBC (Bld) 0 % 0 - 2 % B ON [facility] Eosinophils/100 WBC (Bld) 2 % 1 - 4 % [facility] Hematocrit (Bld) [Volume fraction] 23.7 % Low 36.3 - 47.1 % [facility] Hemoglobin (Bld) [Mass/Vol] 8.0 g/dL Low 11.9 - 15.1 g/dL [facility] Immature granulocytes/100 WBC (Bld) 1 % High 0 [facility] Interpretation and review of laboratory results Abnormal [facility] Lymphocytes/100 WBC (Bld) 17 % Low 24 - 43 % [facility] MCH (RBC) [Entitic mass] 32.3 pg 25.2 - 33.5 pg [facility] MCHC (RBC) [Mass/Vol] 33.8 g/dL 28.4 - 34.8 g/dL [facility] MCV (RBC) [Entitic vol] 95.6 fL 82.6 - 102.9 fL [facility] Monocytes/100 WBC (Bld) 7 % 3 - 12 % B ON [facility] NRBC Automated 0.0 0.0 per 100 WBC [facility] Platelet distribution width (Bld) [Ratio] 18.4 % High 11.8 - 14.4 % [facility] Platelet mean volume (Bld) [Entitic vol] 8.7 fL 8.1 - 13.5 fL [facility] Platelets (Bld) [#/Vol] 429 10*3/uL [facility] RBC (Bld) [#/Vol] 2.48 10*6/uL Low 3.95 - 5.1 1 m/uL [facility] RBC (Bld) [#/Vol] ANISOCYTOSIS PRESENT [facility] Seg Neutrophils 73 % High 36 - 65 % [facility] Segs Absolute 7.64 [facility] WBC (Bld) [#/Vol] 10.5 10*3/uL [facility] Lipaseon 08-04-2021 Lipase [Catalytic activity/Vol] 16 U/L 13 - 60 U/L [facility] Magnesiumon 08-04-2021 Magnesium [Mass/Vol] 1.9 mg/dL 1.6 - 2 .6 mg/dL [facility] POC Glucose Fingerstickon Glucose [Mass/Vol] 170 mg/dL High 65 - 105 mg/dL [facility] Interpretation and review of laboratory results Abnormal [facility] Glucose [Mass/Vol] 118 mg/dL High 65 - 105 mg/dL [facility] Interpretation and review of laboratory results Abnormal [facility] Glucose [Mass/Vol] 226 mg/dL High 65 - 105 mg/dL [facility] Interpretation and review of laboratory results Abnormal [facility] Glucose [Mass/Vol] 192 mg/dL High 65 - 105 mg/dL [facility] Interpretation and review of laboratory results Abnormal [facility] Arterial Blood Gas, POCon Adarsh Test NOT APPLICABLE [facility] FIO2 30.0 [facility] HCO3 (Bld) [Moles/Vol] 24.5 mmol/L 21.0 - 28.0 mmol/L [facility] Mode PRVC [facility] O2 Device/Flow/% Adult Ventilator [facility] Oxygen saturation in Blood 99 % High 94.0 - 98.0 % [facility] POC pCO2 31.7 Low [facility] POC pH 7.497 High [facility] POC PO2 116.0 High [facility] Positive Base Excess, Art 2 [facility] Sample Site Arterial Line [facility] Basic Metabolic Panel w/ Ref rafael to MGon 08-03-2021 Anion gap [Moles/Vol] 10 mmol/L 9 - 17 mmol/L [facility] Calcium [Mass/Vol] 8.3 mg/dL Low 8.6 - 10. 4 mg/dL [facility] Chloride [Moles/Vol] 107 mmol/L 98 - 10 7 mmol/L [facility] CO2 [Moles/Vol] 22 mmol/L 20 - 31 mmol/L [facility] Creatinine [Mass/Vol] 0.6 mg/dL 0.50 - 0.90 mg/dL [facility] GFR >60 >60 mL/min [facility] GFR Non- >60 >60 mL/min [facility] GFR/1.73 sq M.predicted MDRD (S/P/Bld) [Vol rate/Area] [facility] Glucose [Mass/Vol] 210 mg/dL High 70 - 99 mg/dL [facility] Interpretation and review of laboratory results Abnormal [facility] Potassium [Moles/Vol] 3.6 mmol/L Low 3.7 - 5.3 mmol/L [facility] Sodium [Moles/Vol] 139 mmol/L 135 - 144 mmol/L [facility] Urea nitrogen (BldV) [Mass/Vol] 15 mg/dL 6 - 20 mg/dL [facility] CBC with Auto Differentialon 08-03-2021 Absolute Eos # 0.19 [place] [facility] Absolute Immature Granulocyte 0.11 [facility] Absolute Lymph # 1.74 [facility] Absolute Lajas # 0.92 [facility] Basophils (Bld) [#/Vol] 0.03 10*3/uL [facility] Basophils/100 WBC (Bld) 0 % 0 - 2 % B [facility] Eosinophils/100 WBC (Bld) 2 % 1 - 4 % [facility] Hematocrit (Bld) [Volume fraction] 24.8 % Low 36.3 - 47.1 % [facility] Hemoglobin (Bld) [Mass/Vol] 8.3 g/dL Low 11.9 - 15.1 g/dL [facility] Immature granulocytes/100 WBC (Bld) 1 % High 0 [facility] Interpretation and review of laboratory results Abnormal [facility] Lymphocytes/100 WBC (Bld) 15 % Low 24 - 43 % [facility] MCH (RBC) [Entitic mass] 31.6 pg 25.2 - 33.5 pg [facility] MCHC (RBC) [Mass/Vol] 33.5 g/dL 28.4 - 34.8 g/dL [facility] MCV (RBC) [Entitic vol] 94.3 fL 82.6 - 102.9 fL [facility] Monocytes/100 WBC (Bld) 8 % 3 - 12 % B [facility] NRBC Automated 0.0 0.0 per 100 WBC [facility] Platelet distribution width (Bld) [Ratio] 18.5 % High 11.8 - 14.4 % [facility] Platelet mean volume (Bld) [Entitic vol] 8.8 fL 8.1 - 13.5 fL [facility] Platelets (Bld) [#/Vol] 429 10*3/uL [facility] RBC (Bld) [#/Vol] 2.63 10*6/uL Low 3.95 - 5.1 1 m/uL [facility] RBC (Bld) [#/Vol] ANISOCYTOSIS PRESENT [facility] Seg Neutrophils 74 % High 36 - 65 % [facility] Segs Absolute 8.94 High [facility] WBC (Bld) [#/Vol] 11.9 10*3/uL [facility] [place] No Panel Informationon 08-03 Interpretation and review of laboratory results Abnormal [facility] POC Glucose Fingerstickon Glucose [Mass/Vol] 302 mg/dL High 65 - 105 mg/dL [facility] Interpretation and review of laboratory results Abnormal [facility] Glucose [Mass/Vol] 246 mg/dL High 65 - 105 mg/dL [facility] Interpretation and review of laboratory results Abnormal [facility] Glucose [Mass/Vol] 196 mg/dL High 65 - 105 mg/dL [facility] Interpretation and review of laboratory results Abnormal [facility] Glucose [Mass/Vol] 222 mg/dL High 65 - 105 mg/dL [facility] Interpretation and review of laboratory results Abnormal [facility] Glucose [Mass/Vol] 216 mg/dL High 65 - 105 mg/dL [facility] Interpretation and review of laboratory results Abnormal [facility] POCT Glucoseon 08-03-2021 Glucose [Mass/Vol] 218 mg/dL High 74 - 100 mg/dL [facility] Arterial Blood Gas, POCon Adarsh Test NOT APPLICABLE [facility] FIO2 30.0 [facility] HCO3 (Bld) [Moles/Vol] 24.2 mmol/L 21.0 - 28.0 mmol/L [facility] Mode PRVC [facility] O2 Device/Flow/% Adult Ventilator [facility] Oxygen saturation in Blood 99 % High 94.0 - 98.0 % [facility] POC pCO2 35.7 [facility] POC pH 7.439 [facility] POC PO2 119.9 High [facility] Positive Base Excess, Art 0 [facility] Sample Site Arterial Line [facility] Basic Metabolic Panel w/ Ref rafael to MGon 08-02-2021 Anion gap [Moles/Vol] 9 mmol/L 9 - 17 mmol/L [facility] Calcium [Mass/Vol] 8.0 mg/dL Low 8.6 - 10. 4 mg/dL [facility] Chloride [Moles/Vol] 106 mmol/L 98 - 10 7 mmol/L [facility] CO2 [Moles/Vol] 22 mmol/L 20 - 31 mmol/L [facility] Creatinine [Mass/Vol] 0.67 mg/dL 0.50 - 0.90 mg/dL [facility] GFR >60 >60 mL/min [facility] GFR Non- >60 >60 mL/min [facility] GFR/1.73 sq M.predicted MDRD (S/P/Bld) [Vol rate/Area] [facility] Glucose [Mass/Vol] 247 mg/dL High 70 - 99 mg/dL [facility] Interpretation and review of laboratory results Abnormal [facility] Potassium [Moles/Vol] 3.3 mmol/L Low 3.7 - 5.3 mmol/L [facility] Sodium [Moles/Vol] 137 mmol/L 135 - 144 mmol/L [facility] Urea nitrogen (BldV) [Mass/Vol] 15 mg/dL 6 - 20 mg/dL [facility] CBC with Auto Differentialon 08-02-2021 Absolute Eos # 0.15 [place] [facility] Absolute Immature Granulocyte 0.26 [facility] Absolute Lymph # 1.97 [facility] Absolute Lajas # 0.99 [facility] Basophils (Bld) [#/Vol] 0.04 10*3/uL [facility] Basophils/100 WBC (Bld) 0 % 0 - 2 % B [facility] Eosinophils/100 WBC (Bld) 1 % 1 - 4 % [facility] Hematocrit (Bld) [Volume fraction] 23.5 % Low 36.3 - 47.1 % [facility] Hemoglobin (Bld) [Mass/Vol] 8.0 g/dL Low 11.9 - 15.1 g/dL [facility] Immature granulocytes/100 WBC (Bld) 2 % High 0 [facility] Interpretation and review of laboratory results Abnormal [facility] Lymphocytes/100 WBC (Bld) 16 % Low 24 - 43 % [facility] MCH (RBC) [Entitic mass] 32.0 pg 25.2 - 33.5 pg [facility] MCHC (RBC) [Mass/Vol] 34.0 g/dL 28.4 - 34.8 g/dL [facility] MCV (RBC) [Entitic vol] 94.0 fL 82.6 - 102.9 fL [facility] Monocytes/100 WBC (Bld) 8 % 3 - 12 % B ON [facility] NRBC Automated 0.0 0.0 per 100 WBC [facility] Platelet distribution width (Bld) [Ratio] 18.5 % High 11.8 - 14.4 % [facility] Platelet mean volume (Bld) [Entitic vol] 8.4 fL 8.1 - 13.5 fL [facility] Platelets (Bld) [#/Vol] 398 10*3/uL [facility] RBC (Bld) [#/Vol] 2.50 10*6/uL Low 3.95 - 5.1 1 m/uL [facility] RBC (Bld) [#/Vol] ANISOCYTOSIS PRESENT [facility] Seg Neutrophils 73 % High 36 - 65 % [facility] Segs Absolute 8.88 High [facility] WBC (Bld) [#/Vol] 12.3 10*3/uL [facility] Magnesiumon 08-02-2021 Magnesium [Mass/Vol] 1.7 mg/dL 1.6 - 2 .6 mg/dL [facility] No Panel Informationon 08-02 Interpretation and review of laboratory results Abnormal [facility] POC Glucose Fingerstickon Glucose [Mass/Vol] 194 mg/dL High 65 - 105 mg/dL [facility] Interpretation and review of laboratory results Abnormal [facility] Glucose [Mass/Vol] 112 mg/dL High 65 - 105 mg/dL [facility] Interpretation and review of laboratory results Abnormal [facility] Glucose [Mass/Vol] 172 mg/dL High 65 - 105 mg/dL [facility] Interpretation and review of laboratory results Abnormal [facility] Glucose [Mass/Vol] 251 mg/dL High 65 - 105 mg/dL [facility] Interpretation and review of laboratory results Abnormal [facility] Glucose [Mass/Vol] 240 mg/dL High 65 - 105 mg/dL [facility] Interpretation and review of laboratory results Abnormal [facility] POCT Glucoseon 08-02-2021 Glucose [Mass/Vol] 286 mg/dL High 74 - 100 mg/dL [facility] Basic Metabolic Panel w/ Ref rafael to MGon 08-01-2021 Anion gap [Moles/Vol] 13 mmol/L 9 - 17 mmol/L [facility] Calcium [Mass/Vol] 7.9 mg/dL Low 8.6 - 10. 4 mg/dL [facility] Chloride [Moles/Vol] 105 mmol/L 98 - 10 7 mmol/L [facility] CO2 [Moles/Vol] 20 mmol/L 20 - 31 mmol/L [facility] Creatinine [Mass/Vol] 0.72 mg/dL 0.50 - 0.90 mg/dL [facility] GFR >60 >60 mL/min [facility] GFR Non- >60 >60 mL/min [facility] GFR/1.73 sq M.predicted MDRD (S/P/Bld) [Vol rate/Area] [facility] Glucose [Mass/Vol] 212 mg/dL High 70 - 99 mg/dL [facility] Interpretation and review of laboratory results Abnormal [facility] Potassium [Moles/Vol] 3.2 mmol/L Low 3.7 - 5.3 mmol/L [facility] Sodium [Moles/Vol] 138 mmol/L 135 - 144 mmol/L [facility] Urea nitrogen (BldV) [Mass/Vol] 15 mg/dL 6 - 20 mg/dL [facility] CBC with Auto Differentialon 08-01-2021 Absolute Eos # 0.14 [facility] Absolute Immature Granulocyte 0.56 High [facility] Absolute Lymph # 2.66 [facility] Absolute Lajas # 0.[address] [facility] Basophils (Bld) [#/Vol] 0.00 10*3/uL [facility] Basophils/100 WBC (Bld) 0 % 0 - 2 % [facility] Eosinophils/100 WBC (Bld) 1 % 1 - 4 % [facility] Hematocrit (Bld) [Volume fraction] 27.1 % Low 36.3 - 47.1 % [facility] Hemoglobin (Bld) [Mass/Vol] 9.1 g/dL Low 11.9 - 15.1 g/dL [facility] Immature granulocytes/100 WBC (Bld) 4 % High 0 [facility] Interpretation and review of laboratory results Abnormal [facility] Lymphocytes/100 WBC (Bld) 19 % Low 24 - 44 % [facility] MCH (RBC) [Entitic mass] 31.7 pg 25.2 - 33.5 pg [facility] MCHC (RBC) [Mass/Vol] 33.6 g/dL 28.4 - 34.8 g/dL [facility] MCV (RBC) [Entitic vol] 94.4 fL 82.6 - 102.9 fL [facility] Monocytes/100 WBC (Bld) 5 % 1 - 7 % [facility] Morphology Malachi (Bld) [Interp] ANISOCYTOSIS PRESENT [facility] NRBC Automated 0.0 0.0 per 100 WBC [facility] Platelet distribution width (Bld) [Ratio] 18.8 % High 11.8 - 14.4 % [facility] Platelet mean volume (Bld) [Entitic vol] 8.7 fL 8.1 - 13.5 fL [facility] Platelets (Bld) [#/Vol] 490 10*3/uL High [facility] RBC (Bld) [#/Vol] 2.87 10*6/uL Low 3.95 - 5.1 1 m/uL [facility] Seg Neutrophils 71 % High 36 - 66 % [facility] Segs Absolute 9.94 High [facility] WBC (Bld) [#/Vol] 14.0 10*3/uL High [facility] Magnesiumon 08-01-2021 Magnesium [Mass/Vol] 1.7 mg/dL 1.6 - 2 .6 mg/dL [facility] POC Glucose Fingerstickon Glucose [Mass/Vol] 124 mg/dL High 65 - 105 mg/dL [facility] Interpretation and review of laboratory results Abnormal [facility] Glucose [Mass/Vol] 201 mg/dL High 65 - 105 mg/dL [facility] Interpretation and review of laboratory results Abnormal [facility] Glucose [Mass/Vol] 264 mg/dL High 65 - 105 mg/dL [facility] Interpretation and review of laboratory results Abnormal [facility] Glucose [Mass/Vol] 184 mg/dL High 65 - 105 mg/dL [facility] Interpretation and review of laboratory results Abnormal [facility] Glucose [Mass/Vol] 241 mg/dL High 65 - 105 mg/dL [facility] Interpretation and review of laboratory results Abnormal [facility] Triglycerideon 08-01-2021 Interpretation and review of laboratory results Abnormal [facility] Triglyceride [Mass/Vol] 164 mg/dL High <150 [facility] Basic Metabolic Panel w/ Ref rafael to MGon 07-31-2021 Anion gap [Moles/Vol] 14 mmol/L 9 - 17 mmol/L [facility] Calcium [Mass/Vol] 8.0 mg/dL Low 8.6 - 10. 4 mg/dL [facility] Chloride [Moles/Vol] 106 mmol/L 98 - 10 7 mmol/L [facility] CO2 [Moles/Vol] 20 mmol/L 20 - 31 mmol/L [facility] Creatinine [Mass/Vol] 0.78 mg/dL 0.50 - 0.90 mg/dL [facility] [place] [email or web address] GFR >60 >60 mL/min [facility] GFR Non- >60 >60 mL/min [facility] GFR/1.73 sq M.predicted MDRD (S/P/Bld) [Vol rate/Area] [facility] Glucose [Mass/Vol] 209 mg/dL High 70 - 99 mg/dL [facility] Interpretation and review of laboratory results Abnormal [facility] Potassium [Moles/Vol] 3.3 mmol/L Low 3.7 - 5.3 mmol/L [facility] Sodium [Moles/Vol] 140 mmol/L 135 - 144 mmol/L [facility] Urea nitrogen (BldV) [Mass/Vol] 14 mg/dL 6 - 20 mg/dL [facility] CBC with Auto Differentialon 07-31-2021 Absolute Eos # 0.28 [facility] Absolute Immature Granulocyte 0.98 High [facility] Absolute Lymph # 2.94 [facility] Absolute [place] # 0.98 High [facility] Basophils (Bld) [#/Vol] 0.00 10*3/uL [facility] Basophils/100 WBC (Bld) 0 % 0 - 2 % B [facility] Eosinophils/100 WBC (Bld) 2 % 1 - 4 % [facility] Hematocrit (Bld) [Volume fraction] 27.4 % Low 36.3 - 47.1 % [facility] Hemoglobin (Bld) [Mass/Vol] 9.5 g/dL Low 11.9 - 15.1 g/dL [facility] Immature granulocytes/100 WBC (Bld) 7 % High 0 [facility] Interpretation and review of laboratory results Abnormal [facility] Lymphocytes/100 WBC (Bld) 21 % Low 24 - 44 % [facility] MCH (RBC) [Entitic mass] 31.8 pg 25.2 - 33.5 pg [facility] MCHC (RBC) [Mass/Vol] 34.7 g/dL 28.4 - 34.8 g/dL [facility] MCV (RBC) [Entitic vol] 91.6 fL 82.6 - 102.9 fL [facility] Monocytes/100 WBC (Bld) 7 % 1 - 7 % B ON [facility] Morphology Malachi (Bld) [Interp] ANISOCYTOSIS PRESENT [facility] [facility] NRBC Automated 0.0 0.0 per 100 WBC [facility] Platelet distribution width (Bld) [Ratio] 18.4 % High 11.8 - 14.4 % [facility] Platelet mean volume (Bld) [Entitic vol] 8.7 fL 8.1 - 13.5 fL [facility] Platelets (Bld) [#/Vol] 502 10*3/uL High [facility] RBC (Bld) [#/Vol] 2.99 10*6/uL Low 3.95 - 5.1 1 m/uL [facility] Seg Neutrophils 63 % 36 - 66 % [facility] Segs Absolute 8.82 High [facility] WBC (Bld) [#/Vol] 14.0 10*3/uL High [facility] Hemoglobin and Hematocriton 07-31-2021 Hematocrit (Bld) [Volume fraction] 27.4 % Low 36.3 - 47.1 % [facility] Hemoglobin (Bld) [Mass/Vol] 9.2 g/dL Low 11.9 - 15.1 g/dL [facility] Interpretation and review of laboratory results Abnormal [facility] Magnesiumon 07-31-2021 Magnesium [Mass/Vol] 1.6 mg/dL 1.6 - 2 .6 mg/dL [facility] POC Glucose Fingerstickon Glucose [Mass/Vol] 134 mg/dL High 65 - 105 mg/dL [facility] Interpretation and review of laboratory results Abnormal [facility] Glucose [Mass/Vol] 230 mg/dL High 65 - 105 mg/dL [facility] Interpretation and review of laboratory results Abnormal [facility] Glucose [Mass/Vol] 214 mg/dL High 65 - 105 mg/dL [facility] Interpretation and review of laboratory results Abnormal [facility] Glucose [Mass/Vol] 197 mg/dL High 65 - 105 mg/dL [facility] Interpretation and review of laboratory results Abnormal [facility] Glucose [Mass/Vol] 164 mg/dL High 65 - 105 mg/dL [facility] Interpretation and review of laboratory results Abnormal [facility] Arterial Blood Gas, POCon Adarsh Test NOT APPLICABLE [facility] FIO2 30.0 [facility] HCO3 (Bld) [Moles/Vol] 24.4 mmol/L 21.0 - 28.0 mmol/L [facility] Interpretation and review of laboratory results Abnormal [facility] Mode PRVC [facility] O2 Device/Flow/% Adult Ventilator [facility] Oxygen saturation in Blood 98 % 94.0 - 98.0 % [facility] POC pCO2 33.3 Low [facility] POC pH 7.473 High [facility] POC PO2 104.7 [facility] Positive Base Excess, Art 1 [facility] Sample Site Arterial Line [facility] Basic Metabolic Panel w/ Ref rafael to MGon 07-30-2021 Anion gap [Moles/Vol] 10 mmol/L 9 - 17 mmol/L [facility] Calcium [Mass/Vol] 8.0 mg/dL Low 8.6 - 10. 4 mg/dL [facility] Chloride [Moles/Vol] 105 mmol/L 98 - 10 7 mmol/L [facility] CO2 [Moles/Vol] 22 mmol/L 20 - 31 mmol/L [facility] Creatinine [Mass/Vol] 0.7 mg/dL 0.50 - 0.90 mg/dL [facility] GFR >60 >60 mL/min [facility] GFR Non- >60 >60 mL/min [facility] GFR/1.73 sq M.predicted MDRD (S/P/Bld) [Vol rate/Area] [facility] Glucose [Mass/Vol] 276 mg/dL High 70 - 99 mg/dL [facility] Interpretation and review of laboratory results Abnormal [facility] Potassium [Moles/Vol] 3.8 mmol/L 3.7 - 5.3 mmol/L [facility] Sodium [Moles/Vol] 137 mmol/L 135 - 144 mmol/L [facility] Urea nitrogen (BldV) [Mass/Vol] 14 mg/dL 6 - 20 mg/dL [facility] CBC with Auto Differentialon 07-30-2021 Absolute Eos # 0.00 [place] [facility] Absolute Immature Granulocyte 0.71 High [facility] Absolute Lymph # 3.69 [facility] Absolute Lajas # 0.57 [facility] Basophils (Bld) [#/Vol] 0.00 10*3/uL [facility] Basophils/100 WBC (Bld) 0 % 0 - 2 % B ON [facility] Eosinophils/100 WBC (Bld) 0 % Low 1 - 4 % [facility] Hematocrit (Bld) [Volume fraction] 27.0 % Low 36.3 - 47.1 % [facility] Hemoglobin (Bld) [Mass/Vol] 9.3 g/dL Low 11.9 - 15.1 g/dL [facility] Immature granulocytes/100 WBC (Bld) 5 % High 0 [facility] Interpretation and review of laboratory results Abnormal [facility] Lymphocytes/100 WBC (Bld) 26 % 24 - 44 % [facility] MCH (RBC) [Entitic mass] 31.5 pg 25.2 - 33.5 pg [facility] MCHC (RBC) [Mass/Vol] 34.4 g/dL 28.4 - 34.8 g/dL [facility] MCV (RBC) [Entitic vol] 91.5 fL 82.6 - 102.9 fL [facility] Monocytes/100 WBC (Bld) 4 % 1 - 7 % B ON [facility] Morphology Malachi (Bld) [Interp] ANISOCYTOSIS PRESENT [facility] NRBC Automated 0.0 0.0 per 100 WBC [facility] Platelet distribution width (Bld) [Ratio] 17.7 % High 11.8 - 14.4 % [facility] Platelet mean volume (Bld) [Entitic vol] 8.8 fL 8.1 - 13.5 fL [facility] Platelets (Bld) [#/Vol] 491 10*3/uL High [facility] RBC (Bld) [#/Vol] 2.95 10*6/uL Low 3.95 - 5.1 1 m/uL [facility] Seg Neutrophils 65 % 36 - 66 % [facility] Segs Absolute 9.23 High [facility] WBC (Bld) [#/Vol] 14.2 10*3/uL High [facility] Hemoglobin and Hematocriton 07-30-2021 Hematocrit (Bld) [Volume fraction] 29.5 % Low 36.3 - 47.1 % [facility] Hemoglobin (Bld) [Mass/Vol] 9.6 g/dL Low 11.9 - 15.1 g/dL [facility] Interpretation and review of laboratory results Abnormal [facility] POC Glucose Fingerstickon Glucose [Mass/Vol] 106 mg/dL High 65 - 105 mg/dL [facility] Interpretation and review of laboratory results Abnormal [facility] Glucose [Mass/Vol] 231 mg/dL High 65 - 105 mg/dL [facility] Interpretation and review of laboratory results Abnormal [facility] TYPE AND SCREENon 07-30-2021 ABO/Rh Positive [facility] Arm Band Number BE [id number] [facility] Blood Bank Blood Product Expiration Date [id number] [facility] Blood Bank ISBT Product Blood Type 6200 [facility] Blood Bank Unit Type and Rh Positive [facility] Blood product type Nom (BPU) Leukocyte Reduced Red Cell [facility] Blood product unit ID (Dose) [#] [id number] [facility] Crossmatch Result COMPATIBLE [facility] Dispense Status TRANSFUSED [facility] Expiration Date 08/01/2021,4456 [facility] Product Code Blood Bank [id number] B ON [facility] Transfusion Status OK TO TRANSFUSE B ON [facility] Unit Divison 0 [facility] Unit Issue Date/Time [id number] [facility] Arterial Blood Gas, POCon Adarsh Test NOT APPLICABLE [facility] FIO2 30.0 [facility] HCO3 (Bld) [Moles/Vol] 23.0 mmol/L 21.0 - 28.0 mmol/L [facility] Interpretation and review of laboratory results Abnormal [facility] Mode PRVC [facility] Negative Base Excess, Art 1 [facility] O2 Device/Flow/% Adult Ventilator [facility] Oxygen saturation in Blood 99 % High 94.0 - 98.0 % [facility] POC pCO2 35.1 [facility] POC pH 7.425 [facility] POC PO2 120.9 High [facility] Sample Site Arterial Line [facility] Basic Metabolic Panel w/ Ref rafael to MGon 07-29-2021 Anion gap [Moles/Vol] 9 mmol/L 9 - 17 mmol/L [facility] Calcium [Mass/Vol] 7.8 mg/dL Low 8.6 - 10. 4 mg/dL [facility] Chloride [Moles/Vol] 106 mmol/L 98 - 10 7 mmol/L [facility] CO2 [Moles/Vol] 21 mmol/L 20 - 31 mmol/L [facility] Creatinine [Mass/Vol] 0.71 mg/dL 0.50 - 0.90 mg/dL [facility] GFR >60 >60 mL/min [facility] GFR Non- >60 >60 mL/min [facility] GFR/1.73 sq M.predicted MDRD (S/P/Bld) [Vol rate/Area] [facility] Glucose [Mass/Vol] 246 mg/dL High 70 - 99 mg/dL [facility] Interpretation and review of laboratory results Abnormal [facility] Potassium [Moles/Vol] 3.6 mmol/L Low 3.7 - 5.3 mmol/L [facility] Sodium [Moles/Vol] 136 mmol/L 135 - 144 mmol/L [facility] Urea nitrogen (BldV) [Mass/Vol] 11 mg/dL 6 - 20 mg/dL [facility] CBC with Auto Differentialon 07-29-2021 Absolute Eos # 0.00 [place] [facility] Absolute Immature Granulocyte 0.43 High [facility] Absolute Lymph # 3.13 [facility] Absolute Lajas # 0.32 [facility] Basophils (Bld) [#/Vol] 0.00 10*3/uL [facility] Basophils/100 WBC (Bld) 0 % 0 - 2 % B ON [facility] Eosinophils/100 WBC (Bld) 0 % Low 1 - 4 % [facility] Hematocrit (Bld) [Volume fraction] 22.5 % Low 36.3 - 47.1 % [facility] Hemoglobin (Bld) [Mass/Vol] 7.4 g/dL Low 11.9 - 15.1 g/dL [facility] Immature granulocytes/100 WBC (Bld) 4 % High 0 [facility] Interpretation and review of laboratory results Abnormal [facility] Lymphocytes/100 WBC (Bld) 29 % 24 - 44 % [facility] MCH (RBC) [Entitic mass] 30.7 pg 25.2 - 33.5 pg [facility] MCHC (RBC) [Mass/Vol] 32.9 g/dL 28.4 - 34.8 g/dL [facility] MCV (RBC) [Entitic vol] 93.4 fL 82.6 - 102.9 fL [facility] Monocytes/100 WBC (Bld) 3 % 1 - 7 % B ON [facility] Morphology Malachi (Bld) [Interp] ANISOCYTOSIS PRESENT [facility] NRBC Automated 0.0 0.0 per 100 WBC [facility] Platelet distribution width (Bld) [Ratio] 19.6 % High 11.8 - 14.4 % [facility] Platelet mean volume (Bld) [Entitic vol] 8.9 fL 8.1 - 13.5 fL [facility] Platelets (Bld) [#/Vol] 500 10*3/uL High [facility] RBC (Bld) [#/Vol] 2.41 10*6/uL Low 3.95 - 5.1 1 m/uL [facility] Seg Neutrophils 64 % 36 - 66 % [facility] Segs Absolute 6.92 [facility] WBC (Bld) [#/Vol] 10.8 10*3/uL [facility] Hemoglobin and Hematocriton 07-29-2021 Hematocrit (Bld) [Volume fraction] 29.9 % Low 36.3 - 47.1 % [facility] Hemoglobin (Bld) [Mass/Vol] 10.1 g/dL Low 11.9 - 15.1 g/dL [facility] Interpretation and review of laboratory results Abnormal [facility] Hematocrit (Bld) [Volume fraction] 24.9 % Low 36.3 - 47.1 % [facility] Hemoglobin (Bld) [Mass/Vol] 8.4 g/dL Low 11.9 - 15.1 g/dL [facility] Interpretation and review of laboratory results Abnormal [facility] POC Glucose Fingerstickon Glucose [Mass/Vol] 169 mg/dL High 65 - 105 mg/dL [facility] Interpretation and review of laboratory results Abnormal [facility] Glucose [Mass/Vol] 296 mg/dL High 65 - 105 mg/dL [facility] Interpretation and review of laboratory results Abnormal [facility] Glucose [Mass/Vol] 276 mg/dL High 65 - 105 mg/dL [facility] Interpretation and review of laboratory results Abnormal [facility] Glucose [Mass/Vol] 217 mg/dL High 65 - 105 mg/dL [facility] Interpretation and review of laboratory results Abnormal [facility] Arterial Blood Gas, POCon FIO2 30.0 [facility] HCO3 (Bld) [Moles/Vol] 22.0 mmol/L 21.0 - 28.0 mmol/L [facility] Mode PRVC [facility] Negative Base Excess, Art 2 [facility] O2 Device/Flow/% Adult Ventilator DAKOTAH N [facility] Oxygen saturation in Blood 98 % 94.0 - 98.0 % [facility] POC pCO2 30.9 Low [facility] POC pH 7.460 High [facility] POC PO2 101.0 [facility] Sample Site Arterial Line [facility] Basic Metabolic Panel w/ Ref rafael to MGon 07-28-2021 Anion gap [Moles/Vol] 9 mmol/L 9 - 17 mmol/L [facility] Calcium [Mass/Vol] 8.1 mg/dL Low 8.6 - 10. 4 mg/dL [facility] Chloride [Moles/Vol] 108 mmol/L High 98 - 10 7 mmol/L [facility] CO2 [Moles/Vol] 20 mmol/L 20 - 31 mmol/L [facility] Creatinine [Mass/Vol] 0.73 mg/dL 0.50 - 0.90 mg/dL [facility] GFR >60 >60 mL/min [facility] GFR Non- >60 >60 mL/min [facility] GFR/1.73 sq M.predicted MDRD (S/P/Bld) [Vol rate/Area] [facility] Glucose [Mass/Vol] 195 mg/dL High 70 - 99 mg/dL [facility] Interpretation and review of laboratory results Abnormal [facility] Potassium [Moles/Vol] 4.2 mmol/L 3.7 - 5.3 mmol/L [facility] Sodium [Moles/Vol] 137 mmol/L 135 - 144 mmol/L [facility] Urea nitrogen (BldV) [Mass/Vol] 8 mg/dL 6 - 20 mg/dL [facility] CBC with Auto Differentialon 07-28-2021 Absolute Eos # 0.00 [facility] Absolute Immature Granulocyte 0.64 High [facility] Absolute Lymph # 2.69 [place] [facility] Absolute Lajas # 0.00 Low [facility] Basophils (Bld) [#/Vol] 0.00 10*3/uL [facility] Basophils/100 WBC (Bld) 0 % 0 - 2 % [facility] Eosinophils/100 WBC (Bld) 0 % Low 1 - 4 % [facility] Hematocrit (Bld) [Volume fraction] 24.4 % Low 36.3 - 47.1 % [facility] Hemoglobin (Bld) [Mass/Vol] 7.9 g/dL Low 11.9 - 15.1 g/dL [facility] Immature granulocytes/100 WBC (Bld) 5 % High 0 [facility] Interpretation and review of laboratory results Abnormal [facility] Lymphocytes/100 WBC (Bld) 21 % Low 24 - 44 % [facility] MCH (RBC) [Entitic mass] 30.5 pg 25.2 - 33.5 pg [facility] MCHC (RBC) [Mass/Vol] 32.4 g/dL 28.4 - 34.8 g/dL [facility] MCV (RBC) [Entitic vol] 94.2 fL 82.6 - 102.9 fL [facility] Monocytes/100 WBC (Bld) 0 % Low 1 - 7 % B ON [facility] Morphology Malachi (Bld) [Interp] ANISOCYTOSIS PRESENT [facility] NRBC Automated 0.0 0.0 per 100 WBC [facility] Platelet distribution width (Bld) [Ratio] 19.0 % High 11.8 - 14.4 % [facility] Platelet mean volume (Bld) [Entitic vol] 8.8 fL 8.1 - 13.5 fL [facility] Platelets (Bld) [#/Vol] 490 10*3/uL High [facility] RBC (Bld) [#/Vol] 2.59 10*6/uL Low 3.95 - 5.1 1 m/uL [facility] Seg Neutrophils 74 % High 36 - 66 % [facility] Segs Absolute 9.47 High [facility] WBC (Bld) [#/Vol] 12.8 10*3/uL High [facility] Jossie [facility] Calcium, Ionizedon Calcium [Moles/Vol] 1.15 mmol/L 1.13 - 1 .33 mmol/L [facility] Hemoglobin and Hematocriton 07-28-2021 Hematocrit (Bld) [Volume fraction] 23.9 % Low 36.3 - 47.1 % [facility] Hemoglobin (Bld) [Mass/Vol] 8.2 g/dL Low 11.9 - 15.1 g/dL [facility] Interpretation and review of laboratory results Abnormal [facility] No Panel Informationon 07-28 Interpretation and review of laboratory results Abnormal [facility] POC Glucose Fingerstickon Glucose [Mass/Vol] 183 mg/dL High 65 - 105 mg/dL [facility] Interpretation and review of laboratory results Abnormal [facility] Glucose [Mass/Vol] 187 mg/dL High 65 - 105 mg/dL [facility] Interpretation and review of laboratory results Abnormal [facility] Glucose [Mass/Vol] 163 mg/dL High 65 - 105 mg/dL [facility] Interpretation and review of laboratory results Abnormal [facility] Glucose [Mass/Vol] 182 mg/dL High 65 - 105 mg/dL [facility] Interpretation and review of laboratory results Abnormal [facility] POCT Glucoseon 07-28-2021 Glucose [Mass/Vol] 177 mg/dL High 74 - 100 mg/dL [facility] CBC with Auto Differentialon 07-27-2021 Basophils (Bld) [#/Vol] 0.00 10*3/uL [facility] Basophils/100 WBC (Bld) 0 % 0 - 2 % B [facility] Eosinophils/100 WBC (Bld) 0 % Low 1 - 4 % [facility] Hematocrit (Bld) [Volume fraction] 25.3 % Low 36.3 - 47.1 % [facility] Hemoglobin (Bld) [Mass/Vol] 8.5 g/dL Low 11.9 - 15.1 g/dL [facility] Lymphocytes/100 WBC (Bld) 19 % Low 24 - 44 % [facility] MCH (RBC) [Entitic mass] 30.6 pg 25.2 - 33.5 pg [facility] MCV (RBC) [Entitic vol] 91.0 fL 82.6 - 102.9 fL [facility] Morphology Malachi (Bld) [Interp] ANISOCYTOSIS PRESENT [facility] RBC (Bld) [#/Vol] 2.78 10*6/uL Low 3.95 - 5.1 1 m/uL [facility] Calcium, Ionizedon 2 Calcium [Moles/Vol] 1.19 mmol/L 1.13 - 1 .33 mmol/L [facility] Culture, Blood 2on 2 Bacteria identified Cx Nom (Unsp spec) NO GROWTH 5 DAYS [facility] Special Requests L HAND 20ML [facility] Specimen Description .BLOOD [facility] Hemoglobin and Hematocriton 07-27-2021 Hematocrit (Bld) [Volume fraction] 26.4 % Low 36.3 - 47.1 % [facility] Hemoglobin (Bld) [Mass/Vol] 9.0 g/dL Low 11.9 - 15.1 g/dL [facility] Interpretation and review of laboratory results Abnormal [facility] Magnesiumon 07-27-2021 Magnesium [Mass/Vol] 1.8 mg/dL 1.6 - 2 .6 mg/dL [facility] POC Glucose Fingerstickon Glucose [Mass/Vol] 149 mg/dL High 65 - 105 mg/dL [facility] Interpretation and review of laboratory results Abnormal [facility] Glucose [Mass/Vol] 162 mg/dL High 65 - 105 mg/dL [facility] Interpretation and review of laboratory results Abnormal [facility] Glucose [Mass/Vol] 160 mg/dL High 65 - 105 mg/dL [facility] Interpretation and review of laboratory results Abnormal [facility] Glucose [Mass/Vol] 147 mg/dL High 65 - 105 mg/dL [facility] Interpretation and review of laboratory results Abnormal [facility] Glucose [Mass/Vol] 135 mg/dL High 65 - 105 mg/dL [facility] Interpretation and review of laboratory results Abnormal [facility] Glucose [Mass/Vol] 204 mg/dL High 65 - 105 mg/dL [facility] Interpretation and review of laboratory results Abnormal [facility] Basic Metabolic Panel w/ Ref rafael to MGon 07-14-2021 Anion gap [Moles/Vol] 14 mmol/L 9 - 17 mmol/L [facility] Calcium [Mass/Vol] 8.2 mg/dL Low 8.6 - 10. 4 mg/dL [facility] Chloride [Moles/Vol] 97 mmol/L Low 98 - 10 7 mmol/L [facility] CO2 [Moles/Vol] 30 mmol/L 20 - 31 mmol/L [facility] Creatinine [Mass/Vol] 0.92 mg/dL High 0.50 - 0.90 mg/dL [facility] GFR >60 >60 mL/min [facility] GFR Non- >60 >60 mL/min [facility] GFR/1.73 sq M.predicted MDRD (S/P/Bld) [Vol rate/Area] [facility] Comment on above: Average GFR for 50-5 9 years old: 93 mL/min/1.73sq m Chronic Kidney Disease: <60 mL/min/1.73sq m Kidney failure: <15 mL/min/1.73sq m eGFR calculated using average adult body mass. Additional eGFR calculator available at: [email or web address] Glucose [Mass/Vol] 96 mg/dL 70 - 99 mg/dL [facility] Interpretation and review of laboratory results Abnormal [facility] Potassium [Moles/Vol] 2.0 mmol/L Critically low 3.7 - 5.3 mmol/L [facility] Sodium [Moles/Vol] 141 mmol/L 135 - 144 mmol/L [facility] Urea nitrogen (BldV) [Mass/Vol] 5 mg/dL Low 6 - 20 mg/dL [facility] Urea nitrogen/Creatinine (Bld) [Mass ratio] 5 Low [facility] CBC with Auto Differentialon 07-14-2021 Absolute Eos # 0.00 [facility] Absolute Lymph # 1.80 [facility] Absolute [place] # 0.80 [facility] Basophils (Bld) [#/Vol] 0.00 10*3/uL [facility] Basophils/100 WBC (Bld) 0 % 0 - 2 % B ON [facility] Eosinophils/100 WBC (Bld) 0 % 0 - 5 % [facility] Hematocrit (Bld) [Volume fraction] 29.9 % Low 36 - 46 % [facility] Hemoglobin.gastrointest inal spec 1 Ql (Stl) 10.1 g/dL Low 12.0 - 16.0 g/dL [facility] Interpretation and review of laboratory results Abnormal [facility] Lymphocytes/100 WBC (Bld) 22 % 15 - 40 % [facility] MCH (RBC) [Entitic mass] 28.4 pg 26 - 34 pg [facility] MCHC (RBC) [Mass/Vol] 33.8 g/dL 31 - 3 7 g/dL [facility] MCV (RBC) [Entitic vol] 83.9 fL 80 - 100 fL [facility] Monocytes/100 WBC (Bld) 10 % High 4 - 8 % B ON [facility] Morphology Malachi (Bld) [Interp] MODERATE ANISOCYTOSIS [facility] Platelet distribution width (Bld) [Ratio] 19.9 % High 12.1 - 15.2 % [facility] Platelets (Bld) [#/Vol] 701 10*3/uL High [facility] RBC (Bld) [#/Vol] 3.56 10*6/uL Low 4.0 - 5.2 m/uL [facility] Segmented neutrophils/100 WBC (Bld) 68 % 47 - 75 % [facility] Segs Absolute 5.60 [facility] WBC (Bld) [#/Vol] 8.2 10*3/uL [facility] [place] Magnesiumon 07-14-2021 Magnesium [Mass/Vol] 1.6 mg/dL 1.6 - 2 .6 mg/dL [facility] CBC with Auto Differentialon 07-13-2021 Absolute Eos # 0.10 [facility] Absolute Lymph # 1.60 [facility] Absolute Lajas # 1.10 High [facility] Basophils (Bld) [#/Vol] 0.00 10*3/uL [facility] Basophils/100 WBC (Bld) 0 % 0 - 2 % B ON [facility] Eosinophils/100 WBC (Bld) 1 % 0 - 5 % [facility] Hematocrit (Bld) [Volume fraction] 31.2 % Low 36 - 46 % [facility] Hemoglobin.gastrointest inal spec 1 Ql (Stl) 10.4 g/dL Low 12.0 - 16.0 g/dL [facility] Interpretation and review of laboratory results Abnormal [facility] Lymphocytes/100 WBC (Bld) 20 % 15 - 40 % [facility] MCH (RBC) [Entitic mass] 28.1 pg 26 - 34 pg [facility] MCHC (RBC) [Mass/Vol] 33.2 g/dL 31 - 3 7 g/dL [facility] MCV (RBC) [Entitic vol] 84.7 fL 80 - 100 fL [facility] Monocytes/100 WBC (Bld) 13 % High 4 - 8 % B ON [facility] Morphology Malachi (Bld) [Interp] MODERATE ANISOCYTOSIS [facility] Morphology Malachi (Bld) [Interp] Scanned to verify automated differential. [facility] Platelet distribution width (Bld) [Ratio] 20.5 % High 12.1 - 15.2 % [facility] Platelets (Bld) [#/Vol] 725 10*3/uL High [facility] RBC (Bld) [#/Vol] 3.68 10*6/uL Low 4.0 - 5.2 m/uL [facility] Segmented neutrophils/100 WBC (Bld) 66 % 47 - 75 % [facility] Segs Absolute 5.30 [facility] WBC (Bld) [#/Vol] 8.1 10*3/uL [facility] COVID-19, Rapidon 07-13-2021 Interpretation and review of laboratory results Abnormal [facility] SARS-CoV-2 (COVID-19) RNA ACL+probe Ql (Unsp spec) Detected Abnormal Not Detected [facility] Comment on above: Rapid NAAT: The [...] this assay. Fact sheet for Healthcare Providers: https://www.fda.gov/media/833056/download Fact sheet for Patients: https://www.fda.gov/media/369944/download Methodology: Isothermal Nucleic Acid Amplification Results reported to the appropriate Health Department Specimen Description .NASOPHARYNGEAL SWAB [facility] Comprehensive Metabolic Pane l w/ Reflex to MGon 07-13-2021 Albumin [Mass/Vol] 2.5 g/dL Low 3.5 - 5.2 g/dL [facility] ALP (Bld) [Catalytic activity/Vol] 450 U/L High 35 - 104 U/L [facility] ALT [Catalytic activity/Vol] 13 U/L 5 - 33 U/L [facility] Anion gap [Moles/Vol] 16 mmol/L 9 - 17 mmol/L [facility] AST [Catalytic activity/Vol] 29 U/L <32 [facility] Bilirubin [Mass/Vol] 0.64 mg/dL 0.30 - 1.20 mg/dL [facility] Calcium [Mass/Vol] 8.7 mg/dL 8.6 - 10. 4 mg/dL [facility] Chloride [Moles/Vol] 102 mmol/L 98 - 10 7 mmol/L [facility] CO2 [Moles/Vol] 25 mmol/L 20 - 31 mmol/L [facility] Creatinine [Mass/Vol] 0.85 mg/dL 0.50 - 0.90 mg/dL [facility] Free PSA/Total PSA [Mass fraction] 6.5 g/dL 6.4 - 8.3 g/dL [facility] GFR >60 >60 mL/min [facility] GFR Non- >60 >60 mL/min [facility] GFR/1.73 sq M.predicted MDRD (S/P/Bld) [Vol rate/Area] [facility] Comment on above: Average GFR for 50-5 9 years old: 93 mL/min/1.73sq m Chronic Kidney Disease: <60 mL/min/1.73sq m Kidney failure: <15 mL/min/1.73sq m eGFR calculated using average adult body mass. Additional eGFR calculator available at: http://www.[employer].Neighborhoods/multiple_crcl_2012.htm Glucose [Mass/Vol] 79 mg/dL 70 - 99 mg/dL [facility] Interpretation and review of laboratory results Abnormal [facility] Potassium [Moles/Vol] 2.2 mmol/L Critically low 3.7 - 5.3 mmol/L [facility] Sodium [Moles/Vol] 143 mmol/L 135 - 144 mmol/L [facility] Urea nitrogen (BldV) [Mass/Vol] 7 mg/dL 6 - 20 mg/dL [facility] Urea nitrogen/Creatinine (Bld) [Mass ratio] 8 Low [facility] Lactate Dehydrogenaseon 06-18 Interpretation and review of laboratory results Abnormal [facility] LD 317 U/L High 135 - 214 U/L [facility] Lactic Acidon 07-13-2021 Lactate [Moles/Vol] 1 mmol/L 0.5 - 2. 2 mmol/L [facility] Magnesiumon 07-13-2021 Interpretation and review of laboratory results Abnormal [facility] Magnesium [Mass/Vol] 1.5 mg/dL Low 1.6 - 2 .6 mg/dL [facility] XR CHEST PORTABLEon 07-14-19 22 Left infrahilar [...] anchor noted within the left humeral head. [facility] RIS CONSOLIDATED Lionel Mas MD - 07/13/2021 [...] weeks post treatment to document resolution. [facility] Work Phone: Radiology Study observation (narrative) [facility] Work Phone: XR CHEST PORTABLEOrdered By: Lionel Mas on 07-13-2021 [facility] Work Phone: Basic Metabolic Panel w/ Ref rafael to MGon 07-10-2021 Anion gap [Moles/Vol] 14 mmol/L 9 - 17 mmol/L [facility] Calcium [Mass/Vol] 7.4 mg/dL Low 8.6 - 10. 4 mg/dL [facility] Chloride [Moles/Vol] 110 mmol/L High 98 - 10 7 mmol/L [facility] CO2 [Moles/Vol] 16 mmol/L Low 20 - 31 mmol/L [facility] Creatinine [Mass/Vol] 1.01 mg/dL High 0.50 - 0.90 mg/dL [facility] GFR >60 >60 mL/min [facility] GFR Non- 56 mL/min Low >60 [facility] GFR/1.73 sq M.predicted MDRD (S/P/Bld) [Vol rate/Area] [facility] Glucose [Mass/Vol] 65 mg/dL Low 70 - 99 mg/dL [facility] Potassium [Moles/Vol] 3.3 mmol/L Low 3.7 - 5.3 mmol/L [facility] Sodium [Moles/Vol] 140 mmol/L 135 - 144 mmol/L [facility] Urea nitrogen (BldV) [Mass/Vol] 7 mg/dL 6 - 20 mg/dL [facility] C-Reactive Proteinon 022 CRP [Mass/Vol] 161.7 mg/L High 0.0 - 5.0 mg/L [facility] CBC with Auto Differentialon 07-10-2021 Absolute Eos # 0.18 [facility] Absolute Immature Granulocyte 0.00 [facility] Absolute Lymph # 3.40 [facility] Absolute Lajas # 0.72 [facility] Basophils (Bld) [#/Vol] 0.00 10*3/uL [facility] Basophils/100 WBC (Bld) 0 % 0 - 2 % B ON [facility] Eosinophils/100 WBC (Bld) 1 % 1 - 4 % [facility] Hematocrit (Bld) [Volume fraction] 25.6 % Low 36.3 - 47.1 % [facility] Hemoglobin.gastrointest inal spec 1 Ql (Stl) 8.3 g/dL Low 11.9 - 15.1 g/dL [facility] Immature granulocytes/100 WBC (Bld) 0 % 0 [facility] Interpretation and review of laboratory results Abnormal [facility] Lymphocytes/100 WBC (Bld) 19 % Low 24 - 44 % [facility] MCH (RBC) [Entitic mass] 27.8 pg 25.2 - 33.5 pg [facility] MCHC (RBC) [Mass/Vol] 32.4 g/dL 28.4 - 34.8 g/dL [facility] MCV (RBC) [Entitic vol] 85.6 fL 82.6 - 102.9 fL [facility] Monocytes/100 WBC (Bld) 4 % 1 - 7 % B ON [facility] Morphology Malachi (Bld) [Interp] ANISOCYTOSIS PRESENT [facility] NRBC Automated 0.0 0.0 per 100 WBC [facility] Platelet distribution width (Bld) [Ratio] 20.4 % High 11.8 - 14.4 % [facility] Platelet mean volume (Bld) [Entitic vol] 9.0 fL 8.1 - 13.5 fL [facility] Platelets (Bld) [#/Vol] 530 10*3/uL High [facility] RBC (Bld) [#/Vol] 2.99 10*6/uL Low 3.95 - 5.1 1 m/uL [facility] Seg Neutrophils 76 % High 36 - 66 % [facility] Segs Absolute 13.60 High [facility] WBC (Bld) [#/Vol] 17.9 10*3/uL High [facility] [place] COVID-19, Rapidon 07-10-2021 SARS-CoV-2 (COVID-19) RNA CAL+probe Ql (Unsp spec) Not detected Not Detected [facility] Specimen Description .NASOPHARYNGEAL SWAB [facility] Coffee CT CERVICAL SPINE WO CONTRAS Ton 07-10-2021 [facility] RIS CONSOLIDATED PN RIS CONSOLIDATED [facility] Work Phone: Radiology Study observation (narrative) ARASELI HATFIELD [employer] Work Phone: CT CERVICAL SPINE WO CONTRAS TOrdered By: Earl Kohler on 07-10-2021 [facility] Work Phone: Insert PICC lineon 2 [facility] Work Phone: Magnesiumon 07-10-2021 Magnesium [Mass/Vol] 1.8 mg/dL 1.6 - 2 .6 mg/dL [facility] No Panel Informationon 07-10 Interpretation and review of laboratory results Abnormal [facility] Glucose Fingerstickon Glucose [Mass/Vol] 137 mg/dL High 65 - 105 mg/dL [facility] Interpretation and review of laboratory results Abnormal [facility] Glucose [Mass/Vol] 77 mg/dL 65 - 105 mg/dL [facility] XR CERVICAL SPINE FLEXION AN D EXTENSIONon 07-10-2021 [facility] RIS CONSOLIDATED PN RIS CONSOLIDATED [facility] Work Phone: [facility] Work Phone: Radiology Study observation (narrative) ARASELI [employer] Work Phone: Basic Metabolic Panel w/ Ref rafael to MGon 07-09-2021 Anion gap [Moles/Vol] 11 mmol/L 9 - 17 mmol/L [facility] Calcium [Mass/Vol] 7.7 mg/dL Low 8.6 - 10. 4 mg/dL [facility] Chloride [Moles/Vol] 109 mmol/L High 98 - 10 7 mmol/L [facility] CO2 [Moles/Vol] 20 mmol/L 20 - 31 mmol/L [facility] Creatinine [Mass/Vol] 0.81 mg/dL 0.50 - 0.90 mg/dL [facility] GFR >60 >60 mL/min [facility] GFR Non- >60 >60 mL/min [facility] GFR/1.73 sq M.predicted MDRD (S/P/Bld) [Vol rate/Area] [facility] Glucose [Mass/Vol] 133 mg/dL High 70 - 99 mg/dL [facility] Potassium [Moles/Vol] 3.9 mmol/L 3.7 - 5.3 mmol/L [facility] Sodium [Moles/Vol] 140 mmol/L 135 - 144 mmol/L [facility] Urea nitrogen (BldV) [Mass/Vol] 7 mg/dL 6 - 20 mg/dL [facility] C-Reactive Proteinon 022 CRP [Mass/Vol] 124.1 mg/L High 0.0 - 5.0 mg/L [facility] CBC with Auto Differentialon 07-09-2021 Absolute Eos # 0.40 [facility] Absolute Immature Granulocyte 0.08 [facility] Absolute Lymph # 2.06 [facility] Absolute Lajas # 0.48 [facility] Basophils (Bld) [#/Vol] 10*3/uL B ON [facility] Basophils/100 WBC (Bld) 0 % 0 - 2 % B ON [facility] Eosinophils/100 WBC (Bld) 4 % 1 - 4 % [facility] Hematocrit (Bld) [Volume fraction] 27.9 % Low 36.3 - 47.1 % [facility] Hemoglobin.gastrointest inal spec 1 Ql (Stl) 8.5 g/dL Low 11.9 - 15.1 g/dL [facility] Immature granulocytes/100 WBC (Bld) 1 % High 0 [facility] Interpretation and review of laboratory results Abnormal [facility] Lymphocytes/100 WBC (Bld) 18 % Low 24 - 43 % [facility] MCH (RBC) [Entitic mass] 27.3 pg 25.2 - 33.5 pg [facility] MCHC (RBC) [Mass/Vol] 30.5 g/dL 28.4 - 34.8 g/dL [facility] MCV (RBC) [Entitic vol] 89.7 fL 82.6 - 102.9 fL [facility] Monocytes/100 WBC (Bld) 4 % 3 - 12 % B ON [facility] NRBC Automated 0.0 0.0 per 100 WBC [facility] Platelet distribution width (Bld) [Ratio] 19.9 % High 11.8 - 14.4 % [facility] Platelet mean volume (Bld) [Entitic vol] 8.9 fL 8.1 - 13.5 fL [facility] Platelets (Bld) [#/Vol] 434 10*3/uL [facility] RBC (Bld) [#/Vol] 3.11 10*6/uL Low 3.95 - 5.1 1 m/uL [facility] RBC (Bld) [#/Vol] ANISOCYTOSIS PRESENT [facility] Seg Neutrophils 73 % High 36 - 65 % [facility] Segs Absolute 8.48 High [facility] WBC (Bld) [#/Vol] 11.5 10*3/uL High [facility] COVID-19, Rapidon 07-09-2021 SARS-CoV-2 (COVID-19) RNA CAL+probe Ql (Unsp spec) Not detected Not Detected [facility] Specimen Description .NASOPHARYNGEAL SWAB [facility] No Panel Informationon 07-09 Interpretation and review of laboratory results Abnormal [facility] POC Glucose Fingerstickon Glucose [Mass/Vol] 101 mg/dL 65 - 105 mg/dL [facility] Glucose [Mass/Vol] 146 mg/dL High 65 - 105 mg/dL [facility] Interpretation and review of laboratory results Abnormal [facility] Glucose [Mass/Vol] 99 mg/dL 65 - 105 mg/dL [facility] Glucose [Mass/Vol] 138 mg/dL High 65 - 105 mg/dL [facility] Interpretation and review of laboratory results Abnormal [facility] Glucose [Mass/Vol] 171 mg/dL High 65 - 105 mg/dL [facility] Interpretation and review of laboratory results Abnormal [facility] Glucose [Mass/Vol] 279 mg/dL High 65 - 105 mg/dL [facility] Interpretation and review of laboratory results Abnormal [facility] Glucose [Mass/Vol] 59 mg/dL Low 65 - 105 mg/dL [facility] Interpretation and review of laboratory results Abnormal [facility] Glucose [Mass/Vol] 59 mg/dL Low 65 - 105 mg/dL [facility] Interpretation and review of laboratory results Abnormal [facility] Glucose [Mass/Vol] 58 mg/dL Low 65 - 105 mg/dL [facility] Interpretation and review of laboratory results Abnormal [facility] Glucose [Mass/Vol] 306 mg/dL High 65 - 105 mg/dL [facility] Interpretation and review of laboratory results Abnormal [facility] Basic Metabolic Panel w/ Ref rafael to MGon 07-08-2021 Anion gap [Moles/Vol] 10 mmol/L 9 - 17 mmol/L [facility] Calcium [Mass/Vol] 7.3 mg/dL Low 8.6 - 10. 4 mg/dL [facility] Chloride [Moles/Vol] 108 mmol/L High 98 - 10 7 mmol/L [facility] CO2 [Moles/Vol] 20 mmol/L 20 - 31 mmol/L [facility] Creatinine [Mass/Vol] 0.83 mg/dL 0.50 - 0.90 mg/dL [facility] GFR >60 >60 mL/min [facility] GFR Non- >60 >60 mL/min [facility] GFR/1.73 sq M.predicted MDRD (S/P/Bld) [Vol rate/Area] [facility] Glucose [Mass/Vol] 141 mg/dL High 70 - 99 mg/dL [facility] Interpretation and review of laboratory results Abnormal [facility] Potassium [Moles/Vol] 2.9 mmol/L Critically low 3.7 - 5.3 mmol/L [facility] Sodium [Moles/Vol] 138 mmol/L 135 - 144 mmol/L [facility] Urea nitrogen (BldV) [Mass/Vol] 7 mg/dL 6 - 20 mg/dL [facility] C-Reactive Proteinon 022 CRP [Mass/Vol] 131.5 mg/L High 0.0 - 5.0 mg/L [facility] Interpretation and review of laboratory results Abnormal [facility] CBC with Auto Differentialon 07-08-2021 Absolute Eos # 0.31 [facility] Absolute Immature Granulocyte 0.05 [facility] Absolute Lymph # 1.87 [facility] Absolute Lajas # 0.37 [facility] Basophils (Bld) [#/Vol] 10*3/uL B ON [facility] Basophils/100 WBC (Bld) 0 % 0 - 2 % B ON [facility] Eosinophils/100 WBC (Bld) 3 % 1 - 4 % [facility] Hematocrit (Bld) [Volume fraction] 21.5 % Low 36.3 - 47.1 % [facility] Hemoglobin.gastrointest inal spec 1 Ql (Stl) 6.9 g/dL Critically low 11.9 - 15.1 g/dL [facility] Immature granulocytes/100 WBC (Bld) 0 % 0 [facility] Interpretation and review of laboratory results Abnormal [facility] Lymphocytes/100 WBC (Bld) 17 % Low 24 - 43 % [facility] MCH (RBC) [Entitic mass] 27.5 pg 25.2 - 33.5 pg [facility] MCHC (RBC) [Mass/Vol] 32.1 g/dL 28.4 - 34.8 g/dL [facility] MCV (RBC) [Entitic vol] 85.7 fL 82.6 - 102.9 fL [facility] Monocytes/100 WBC (Bld) 3 % 3 - 12 % B ON [facility] NRBC Automated 0.0 0.0 per 100 WBC [facility] Platelet distribution width (Bld) [Ratio] 18.6 % High 11.8 - 14.4 % [facility] Platelet mean volume (Bld) [Entitic vol] 8.9 fL 8.1 - 13.5 fL [facility] Platelets (Bld) [#/Vol] 328 10*3/uL [facility] RBC (Bld) [#/Vol] 2.51 10*6/uL Low 3.95 - 5.1 1 m/uL [facility] RBC (Bld) [#/Vol] ANISOCYTOSIS PRESENT [facility] Seg Neutrophils 77 % High 36 - 65 % [facility] Segs Absolute 8.74 High [facility] WBC (Bld) [#/Vol] 11.4 10*3/uL High [facility] [place] Culture, Urineon 07-08-2021 Bacteria identified Cx Nom (U) NO GROWTH [facility] Specimen Description .INDWELLING CATH URINE [facility] Bacteria identified Cx Nom (U) NO GROWTH [facility] Specimen Description .INDWELLING CATH URINE [facility] Hemoglobin and Hematocriton 07-08-2021 Hematocrit (Bld) [Volume fraction] 25.5 % Low 36.3 - 47.1 % [facility] Hemoglobin.gastrointest inal spec 1 Ql (Stl) 8.1 g/dL Low 11.9 - 15.1 g/dL [facility] Interpretation and review of laboratory results Abnormal [facility] MRI BRAIN W WO CONTRASTon MHPN RIS CONSOLIDATED PN RIS CONSOLIDATED [facility] Work Phone: MRI BRAIN W WO CONTRASTOrder ed By: Mai Villarreal on 07-08-2021 [email or web address] Work Phone: Magnesiumon 07-08-2021 Magnesium [Mass/Vol] 1.7 mg/dL 1.6 - 2 .6 mg/dL [email or web address] POC Glucose Fingerstickon Glucose [Mass/Vol] 139 mg/dL High 65 - 105 mg/dL [facility] Interpretation and review of laboratory results Abnormal [facility] Glucose [Mass/Vol] 140 mg/dL High 65 - 105 mg/dL [facility] Interpretation and review of laboratory results Abnormal [facility] Glucose [Mass/Vol] 192 mg/dL High 65 - 105 mg/dL [facility] Interpretation and review of laboratory results Abnormal [email or web address] [email or web address] Basic Metabolic Panel w/ Ref rafael to MGon 07-07-2021 Anion gap [Moles/Vol] 12 mmol/L 9 - 17 mmol/L [facility] Calcium [Mass/Vol] 7.8 mg/dL Low 8.6 - 10. 4 mg/dL [facility] Chloride [Moles/Vol] 106 mmol/L 98 - 10 7 mmol/L [facility] CO2 [Moles/Vol] 22 mmol/L 20 - 31 mmol/L [facility] Creatinine [Mass/Vol] 0.83 mg/dL 0.50 - 0.90 mg/dL [facility] GFR >60 >60 mL/min [facility] GFR Non- >60 >60 mL/min [facility] GFR/1.73 sq M.predicted MDRD (S/P/Bld) [Vol rate/Area] [facility] Glucose [Mass/Vol] 205 mg/dL High 70 - 99 mg/dL [facility] Potassium [Moles/Vol] 3.9 mmol/L 3.7 - 5.3 mmol/L [facility] Sodium [Moles/Vol] 140 mmol/L 135 - 144 mmol/L [facility] [email or web address] Urea nitrogen (BldV) [Mass/Vol] 8 mg/dL 6 - 20 mg/dL [facility] C-Reactive Proteinon 022 CRP [Mass/Vol] 141.9 mg/L High 0.0 - 5.0 mg/L [facility] CBC with Auto Differentialon 07-07-2021 Absolute Eos # <0.03 [facility] Absolute Immature Granulocyte 0.06 [facility] Absolute Lymph # 0.72 [facility] Absolute Lajas # 0.51 [facility] Basophils (Bld) [#/Vol] 10*3/uL B ON [facility] Basophils/100 WBC (Bld) 0 % 0 - 2 % B ON [facility] Eosinophils/100 WBC (Bld) 0 % Low 1 - 4 % [facility] Hematocrit (Bld) [Volume fraction] 27.9 % Low 36.3 - 47.1 % [facility] Hemoglobin.gastrointest inal spec 1 Ql (Stl) 9.2 g/dL Low 11.9 - 15.1 g/dL [facility] Immature granulocytes/100 WBC (Bld) 1 % High 0 [facility] Interpretation and review of laboratory results Abnormal [facility] Lymphocytes/100 WBC (Bld) 7 % Low 24 - 43 % [facility] MCH (RBC) [Entitic mass] 27.5 pg 25.2 - 33.5 pg [facility] MCHC (RBC) [Mass/Vol] 33.0 g/dL 28.4 - 34.8 g/dL [facility] MCV (RBC) [Entitic vol] 83.5 fL 82.6 - 102.9 fL [facility] Monocytes/100 WBC (Bld) 5 % 3 - 12 % B ON [facility] NRBC Automated 0.0 0.0 per 100 WBC [facility] Platelet distribution width (Bld) [Ratio] 17.2 % High 11.8 - 14.4 % [facility] Platelet mean volume (Bld) [Entitic vol] 9.1 fL 8.1 - 13.5 fL [facility] Platelets (Bld) [#/Vol] 372 10*3/uL [facility] RBC (Bld) [#/Vol] 3.34 10*6/uL Low 3.95 - 5.1 1 m/uL [facility] RBC (Bld) [#/Vol] ANISOCYTOSIS PRESENT [facility] Seg Neutrophils 88 % High 36 - 65 % [facility] Segs Absolute 9.77 High [facility] WBC (Bld) [#/Vol] 11.1 10*3/uL [facility] Microscopic Urinalysison Bacteria, UA MANY Abnormal None [facility] Casts UA 10 TO 20 [facility] Reference range defined for non-centrifuged specimen. [facility] Epithelial Cells UA 10 TO 20 [facility] Interpretation and review of laboratory results Abnormal [facility] RBC, UA 20 TO 50 [facility] WBC, UA 10 TO 20 [facility] No Panel Informationon 07-07 Interpretation and review of laboratory results Abnormal [facility] POC Glucose Fingerstickon Glucose [Mass/Vol] 126 mg/dL High 65 - 105 mg/dL [facility] Interpretation and review of laboratory results Abnormal [facility] Glucose [Mass/Vol] 163 mg/dL High 65 - 105 mg/dL [facility] Interpretation and review of laboratory results Abnormal [facility] Glucose [Mass/Vol] 132 mg/dL High 65 - 105 mg/dL [facility] Interpretation and review of laboratory results Abnormal [facility] TYPE AND SCREENon 07-07-2021 ABO/Rh Positive [facility] Arm [place] Number BE [id number] [facility] Blood Bank Blood Product Expiration Date [facility] Blood Bank ISBT Product Blood Type 6200 [facility] Blood Bank Unit Type and Rh Positive [facility] Blood product type Nom (BPU) Leukocyte Reduced Red Cell [facility] Blood product unit ID (Dose) [#] [id number] [facility] Crossmatch Result COMPATIBLE [facility] Dispense Status TRANSFUSED [facility] Expiration Date 07/09/2021,2359 [facility] Product Code Blood Bank [id number] B ON [facility] Transfusion Status OK TO TRANSFUSE B ON [facility] Unit Divison 0 [facility] Unit Issue Date/Time [facility] N [facility] Urinalysis with Reflex to Cu ltureon 07-07-2021 Bilirubin Urine Negative NEGATIVE [facility] Color, UA Yellow Yellow [facility] Glucose, Ur 1+ Abnormal NEGATIVE [facility] Interpretation and review of laboratory results Abnormal [facility] Ketones Ql (U) TRACE Abnormal NEGATIVE [facility] Leukocyte esterase Test strip Ql (U) Negative NEGATIVE [facility] Nitrite, Urine Negative NEGATIVE [facility] pH, UA 5.5 [facility] Protein, UA Negative NEGATIVE [facility] Specific [place], UA 1.024 [facility] Turbidity UA Clear Clear [facility] Urine Hgb MODERATE Abnormal NEGATIVE [facility] Urobilinogen, Urine Normal Normal [facility] Basic Metabolic Panel w/ Ref rafael to MGon 07-06-2021 Anion gap [Moles/Vol] 8 mmol/L Low 9 - 17 mmol/L [facility] Calcium [Mass/Vol] 8.1 mg/dL Low 8.6 - 10. 4 mg/dL [facility] Chloride [Moles/Vol] 102 mmol/L 98 - 10 7 mmol/L [facility] CO2 [Moles/Vol] 23 mmol/L 20 - 31 mmol/L [facility] Creatinine [Mass/Vol] 0.9 mg/dL 0.50 - 0.90 mg/dL [facility] GFR >60 >60 mL/min [facility] GFR Non- >60 >60 mL/min [facility] GFR/1.73 sq M.predicted MDRD (S/P/Bld) [Vol rate/Area] [facility] Glucose [Mass/Vol] 138 mg/dL High 70 - 99 mg/dL [facility] Interpretation and review of laboratory results Abnormal [facility] Potassium [Moles/Vol] 3.2 mmol/L Low 3.7 - 5.3 mmol/L [facility] Sodium [Moles/Vol] 133 mmol/L Low 135 - 144 mmol/L [facility] Urea nitrogen (BldV) [Mass/Vol] 7 mg/dL 6 - 20 mg/dL [facility] Blood Gas, Arterialon 2021 Adarsh Test INFORMATION NOT PROVIDED [facility] Carboxyhemoglobin 1.1 % 0 - 5 % [facility] FIO2 100% [facility] HCO3 (Bld) [Moles/Vol] 22.7 mmol/L 22 - 27 mmol/L [facility] Oxygen saturation in Blood 99.6 % 94 - 100 % [facility] pCO2, Arterial 27.4 Low [facility] pH, Arterial 7.529 High [facility] pO2, Arterial 277.0 High [facility] Positive Base Excess, Art 0.5 mmol/L 0.0 - 2.0 mmol/L [facility] Pt Temp 37.0 [facility] C-Reactive Proteinon 022 CRP [Mass/Vol] 183.8 mg/L High 0.0 - 5.0 mg/L [facility] Interpretation and review of laboratory results Abnormal [facility] CBC with Auto Differentialon 07-06-2021 Absolute Eos # 0.25 [facility] Absolute Immature Granulocyte 0.04 [facility] Absolute Lymph # 1.52 [facility] Absolute Lajas # 0.43 [facility] Basophils (Bld) [#/Vol] 10*3/uL B ON [facility] Basophils/100 WBC (Bld) 0 % 0 - 2 % B ON [facility] Eosinophils/100 WBC (Bld) 3 % 1 - 4 % [facility] Hematocrit (Bld) [Volume fraction] 27.5 % Low 36.3 - 47.1 % [facility] Hemoglobin.gastrointest inal spec 1 Ql (Stl) 8.5 g/dL Low 11.9 - 15.1 g/dL [facility] Immature granulocytes/100 WBC (Bld) 1 % High 0 [facility] Interpretation and review of laboratory results Abnormal [facility] Lymphocytes/100 WBC (Bld) 20 % Low 24 - 43 % [facility] MCH (RBC) [Entitic mass] 26.0 pg 25.2 - 33.5 pg [facility] MCHC (RBC) [Mass/Vol] 30.9 g/dL 28.4 - 34.8 g/dL [facility] MCV (RBC) [Entitic vol] 84.1 fL 82.6 - 102.9 fL [facility] Monocytes/100 WBC (Bld) 6 % 3 - 12 % B [facility] NRBC Automated 0.0 0.0 per 100 WBC [facility] Platelet distribution width (Bld) [Ratio] 18.2 % High 11.8 - 14.4 % [facility] Platelet mean volume (Bld) [Entitic vol] 9.4 fL 8.1 - 13.5 fL [facility] Platelets (Bld) [#/Vol] 378 10*3/uL [facility] RBC (Bld) [#/Vol] 3.27 10*6/uL Low 3.95 - 5.1 1 m/uL [facility] RBC (Bld) [#/Vol] ANISOCYTOSIS PRESENT [facility] Seg Neutrophils 70 % High 36 - 65 % [facility] Segs Absolute 5.41 [facility] WBC (Bld) [#/Vol] 7.7 10*3/uL [facility] Calcium, Ionizedon Calcium [Moles/Vol] 1.14 mmol/L 1.13 - 1 .33 mmol/L [facility] Calcium [Moles/Vol] 1.13 mmol/L 1.13 - 1 .33 mmol/L [facility] Chloride, Whole Bloodon 06-18 Chloride [Moles/Vol] 109 mmol/L 98 - 11 0 mmol/L [facility] Culture, Blood 1on 2 Bacteria identified Cx Nom (Unsp spec) Positive Abnormal [facility] Bacteria identified Cx Nom (Unsp spec) DIRECT GRAM STAIN FROM BOTTLE: GRAM POSITIVE COCCI IN CLUSTERS [facility] Bacteria identified Cx Nom (Unsp spec) STAPHYLOCOCCUS AUREUS For susceptibility, refer to previous culture. Abnormal [facility] Bacteria identified Cx Nom (Unsp spec) (NOTE) Direct Gram Stain from bottle result called to and read back by: RICH Miranda 07/05/21 0115 [facility] Interpretation and review of laboratory results Abnormal [facility] Special Requests R HAND 10ML [facility] Specimen Description .[facility] Bacteria identified Cx Nom (Unsp spec) Positive Abnormal [facility] Bacteria identified Cx Nom (Unsp spec) DIRECT GRAM STAIN FROM BOTTLE: GRAM POSITIVE COCCI IN CLUSTERS [facility] [email or web address] Bacteria identified Cx Nom (Unsp spec) STAPHYLOCOCCUS AUREUS This isolate is methicillin susceptible. Abnormal [facility] Bacteria identified Cx Nom (Unsp spec) (NOTE) Direct Gram Stain from bottle result called to and read back by: RICH Miranda RN AT 0020 ON 07/05/21 [facility] Interpretation and review of laboratory results Abnormal [facility] Special Requests L HAND 20ML [facility] [email or web address] Specimen Description .BLOOD [facility] FLUORO FOR SURGICAL PROCEDUR ESon 07-06-2021 PN RIS CONSOLIDATED Glucose, Whole Bloodon 07-06 Glucose [Mass/Vol] 131 mg/dL High 65 - 105 mg/dL [facility] Magnesiumon 07-06-2021 Magnesium [Mass/Vol] 2.3 mg/dL 1.6 - 2 .6 mg/dL [facility] No Panel Informationon 07-06 [facility] Interpretation and review of laboratory results Abnormal [facility] OPEN HEART PANELon 2 Adarsh Test INFORMATION NOT PROVIDED [facility] Carboxyhemoglobin 0.8 % 0 - 5 % [facility] Chloride [Moles/Vol] 108 mmol/L 98 - 11 0 mmol/L [facility] FIO2 56% [facility] Glucose [Mass/Vol] 207 mg/dL High 65 - 105 mg/dL [facility] HCO3 (Bld) [Moles/Vol] 21.4 mmol/L Low 22 - 27 mmol/L [facility] Hematocrit (Bld) [Volume fraction] 30.6 % Low 36.3 - 47.1 % [facility] Hemoglobin.gastrointest inal spec 1 Ql (Stl) 9.9 Low [facility] Interpretation and review of laboratory results Abnormal [facility] Negative Base Excess, Art 2.3 mmol/L High 0.0 - 2.0 mmol/L [facility] Oxygen saturation in Blood 99.4 % 94 - 100 % [facility] pCO2, Arterial 34.8 [facility] pH, Arterial 7.406 [facility] pO2, Arterial 279.0 High [facility] Potassium [Moles/Vol] 3.7 mmol/L 3.6 - 5.0 mmol/L [facility] Pt Temp 35.9 [facility] Sodium [Moles/Vol] 140 mmol/L 136 - 145 mmol/L [facility] Open Heart H&Hon 07-06-2021 Hematocrit (Bld) [Volume fraction] 21.0 % Low 36.3 - 47.1 % [facility] Hemoglobin.gastrointest inal spec 1 Ql (Stl) 6.7 Critically low [facility] POC Glucose Fingerstickon Glucose [Mass/Vol] 192 mg/dL High 65 - 105 mg/dL [facility] Interpretation and review of laboratory results Abnormal [facility] Glucose [Mass/Vol] 136 mg/dL High 65 - 105 mg/dL [facility] Interpretation and review of laboratory results Abnormal [facility] Glucose [Mass/Vol] 132 mg/dL High 65 - 105 mg/dL [facility] Interpretation and review of laboratory results Abnormal [facility] Potassium, Whole Bloodon Potassium [Moles/Vol] 3.6 mmol/L 3.6 - 5.0 mmol/L [facility] Sodium, Whole Bloodon 2021 Sodium [Moles/Vol] 140 mmol/L 136 - 145 mmol/L [facility] Basic Metabolic Panel w/ Ref rafael to MGon 07-05-2021 Anion gap [Moles/Vol] 10 mmol/L 9 - 17 mmol/L [facility] Calcium [Mass/Vol] 8.4 mg/dL Low 8.6 - 10. 4 mg/dL [facility] Chloride [Moles/Vol] 101 mmol/L 98 - 10 7 mmol/L [facility] CO2 [Moles/Vol] 27 mmol/L 20 - 31 mmol/L [facility] Creatinine [Mass/Vol] 0.79 mg/dL 0.50 - 0.90 mg/dL [facility] GFR >60 >60 mL/min [facility] GFR Non- >60 >60 mL/min [facility] GFR/1.73 sq M.predicted MDRD (S/P/Bld) [Vol rate/Area] [facility] Glucose [Mass/Vol] 136 mg/dL High 70 - 99 mg/dL [facility] Interpretation and review of laboratory results Abnormal [facility] Potassium [Moles/Vol] 3.1 mmol/L Low 3.7 - 5.3 mmol/L [facility] Sodium [Moles/Vol] 138 mmol/L 135 - 144 mmol/L [facility] Urea nitrogen (BldV) [Mass/Vol] 7 mg/dL 6 - 20 mg/dL [facility] C-Reactive Proteinon 022 CRP [Mass/Vol] 186.3 mg/L High 0.0 - 5.0 mg/L [facility] Interpretation and review of laboratory results Abnormal [facility] CBC with Auto Differentialon 07-05-2021 Absolute Eos # 0.15 [facility] Absolute Immature Granulocyte 0.06 [facility] Absolute Lymph # 2.56 [facility] Absolute Lajas # 0.43 [facility] Basophils (Bld) [#/Vol] 10*3/uL B ON [facility] Basophils/100 WBC (Bld) 0 % 0 - 2 % B ON [facility] Eosinophils/100 WBC (Bld) 2 % 1 - 4 % [facility] Hematocrit (Bld) [Volume fraction] 24.6 % Low 36.3 - 47.1 % [facility] Hemoglobin.gastrointest inal spec 1 Ql (Stl) 7.9 g/dL Low 11.9 - 15.1 g/dL [facility] Immature granulocytes/100 WBC (Bld) 1 % High 0 [facility] Interpretation and review of laboratory results Abnormal [facility] Lymphocytes/100 WBC (Bld) 26 % 24 - 43 % [facility] MCH (RBC) [Entitic mass] 26.5 pg 25.2 - 33.5 pg [facility] MCHC (RBC) [Mass/Vol] 32.1 g/dL 28.4 - 34.8 g/dL [facility] MCV (RBC) [Entitic vol] 82.6 fL 82.6 - 102.9 fL [facility] Monocytes/100 WBC (Bld) 4 % 3 - 12 % B ON [facility] NRBC Automated 0.0 0.0 per 100 WBC [facility] Platelet distribution width (Bld) [Ratio] 17.5 % High 11.8 - 14.4 % [facility] Platelet mean volume (Bld) [Entitic vol] 9.7 fL 8.1 - 13.5 fL [facility] Platelets (Bld) [#/Vol] 341 10*3/uL [facility] RBC (Bld) [#/Vol] 2.98 10*6/uL Low 3.95 - 5.1 1 m/uL [facility] RBC (Bld) [#/Vol] ANISOCYTOSIS PRESENT [facility] Seg Neutrophils 68 % High 36 - 65 % [facility] Segs Absolute 6.79 [facility] WBC (Bld) [#/Vol] 10.0 10*3/uL [facility] Culture, Blood 1on 2 Bacteria identified Cx Nom (Unsp spec) Positive Abnormal [facility] Bacteria identified Cx Nom (Unsp spec) DIRECT GRAM STAIN FROM BOTTLE: GRAM POSITIVE COCCI IN CLUSTERS [facility] Bacteria identified Cx Nom (Unsp spec) STAPHYLOCOCCUS AUREUS This isolate is methicillin susceptible. Abnormal [facility] Bacteria identified Cx Nom (Unsp spec) (NOTE) Direct Gram Stain from bottle result called to and read back by: VIRGIE Parker AT 0225 ON 07/04/21 [facility] Interpretation and review of laboratory results Abnormal [facility] Special Requests LT HAND 2ML [facility] Specimen Description .[facility] FL MODIFIED BARIUM SWALLOW W VIDEOon 07-05-2021 MHPN RIS CONSOLIDATED MHPN RIS CONSOLIDATED [facility] Work Phone: [facility] Work Phone: Radiology Study observation (narrative) [facility] [employer] [facility] [email or web address] Work Phone: MRI BRAIN W WO CONTRASTon Radiology Study observation (narrative) [facility] [email or web address] Work Phone: MRI CERVICAL SPINE W WO CONT RASTon 07-05-2021 MHPN RIS CONSOLIDATED MHPN RIS CONSOLIDATED [facility] Work Phone: MRI CERVICAL SPINE W WO CONT RASTOrdered By: Fredi Ramirez on 07-05-2021 [facility] Work Phone: Magnesiumon 07-05-2021 Magnesium [Mass/Vol] 1.9 mg/dL 1.6 - 2 .6 mg/dL [facility] Myelin Basic Protein, CSFon 07-05-2021 Myelin Basic Protein, CSF 3.3 ng/mL 0.00 - 5.50 ng/mL [facility] POC Glucose Fingerstickon Glucose [Mass/Vol] 102 mg/dL 65 - 105 mg/dL [facility] Glucose [Mass/Vol] 185 mg/dL High 65 - 105 mg/dL [facility] Interpretation and review of laboratory results Abnormal [facility] Glucose [Mass/Vol] 134 mg/dL High 65 - 105 mg/dL [facility] Interpretation and review of laboratory results Abnormal [facility] Glucose [Mass/Vol] 147 mg/dL High 65 - 105 mg/dL [facility] Interpretation and review of laboratory results Abnormal [facility] Potassiumon 07-05-2021 Potassium [Moles/Vol] 3.8 mmol/L 3.7 - 5.3 mmol/L [facility] Basic Metabolic Panel w/ Ref rafael to MGon 07-04-2021 Anion gap [Moles/Vol] 10 mmol/L 9 - 17 mmol/L [facility] Calcium [Mass/Vol] 8.0 mg/dL Low 8.6 - 10. 4 mg/dL [facility] Chloride [Moles/Vol] 102 mmol/L 98 - 10 7 mmol/L [facility] CO2 [Moles/Vol] 26 mmol/L 20 - 31 mmol/L [facility] Creatinine [Mass/Vol] 0.72 mg/dL 0.50 - 0.90 mg/dL [facility] GFR >60 >60 mL/min [facility] GFR Non- >60 >60 mL/min [facility] GFR/1.73 sq M.predicted MDRD (S/P/Bld) [Vol rate/Area] [facility] Glucose [Mass/Vol] 122 mg/dL High 70 - 99 mg/dL [facility] Interpretation and review of laboratory results Abnormal [facility] Potassium [Moles/Vol] 3.5 mmol/L Low 3.7 - 5.3 mmol/L [facility] Sodium [Moles/Vol] 138 mmol/L 135 - 144 mmol/L [facility] Urea nitrogen (BldV) [Mass/Vol] 8 mg/dL 6 - 20 mg/dL [facility] C-Reactive Proteinon 022 CRP [Mass/Vol] 191.8 mg/L High 0.0 - 5.0 mg/L [facility] Interpretation and review of laboratory results Abnormal [facility] CBC with Auto Differentialon 07-04-2021 Absolute Eos # 0.18 [facility] Absolute Immature Granulocyte 0.05 [facility] Absolute Lymph # 2.24 [facility] Absolute Lajas # 0.55 [facility] Basophils (Bld) [#/Vol] 10*3/uL B ON [facility] Basophils/100 WBC (Bld) 0 % 0 - 2 % B ON [facility] Eosinophils/100 WBC (Bld) 2 % 1 - 4 % [facility] Hematocrit (Bld) [Volume fraction] 22.8 % Low 36.3 - 47.1 % [facility] Hemoglobin.gastrointest inal spec 1 Ql (Stl) 7.4 g/dL Low 11.9 - 15.1 g/dL [facility] Immature granulocytes/100 WBC (Bld) 1 % High 0 [facility] Interpretation and review of laboratory results Abnormal [facility] Lymphocytes/100 WBC (Bld) 22 % Low 24 - 43 % [facility] MCH (RBC) [Entitic mass] 26.5 pg 25.2 - 33.5 pg [facility] MCHC (RBC) [Mass/Vol] 32.5 g/dL 28.4 - 34.8 g/dL [facility] MCV (RBC) [Entitic vol] 81.7 fL Low 82.6 - 102.9 fL [facility] Monocytes/100 WBC (Bld) 5 % 3 - 12 % B ON [facility] NRBC Automated 0.0 0.0 per 100 WBC [facility] Platelet distribution width (Bld) [Ratio] 16.9 % High 11.8 - 14.4 % [facility] Platelet mean volume (Bld) [Entitic vol] 9.0 fL 8.1 - 13.5 fL [facility] Platelets (Bld) [#/Vol] 231 10*3/uL [facility] RBC (Bld) [#/Vol] 2.79 10*6/uL Low 3.95 - 5.1 1 m/uL [facility] RBC (Bld) [#/Vol] ANISOCYTOSIS PRESENT [facility] Seg Neutrophils 71 % High 36 - 65 % [facility] Segs Absolute 7.32 [facility] WBC (Bld) [#/Vol] 10.4 10*3/uL [facility] Culture, Blood 1on 2 Bacteria identified Cx Nom (Unsp spec) Positive Abnormal [facility] Bacteria identified Cx Nom (Unsp spec) DIRECT GRAM STAIN FROM BOTTLE: GRAM POSITIVE COCCI IN CLUSTERS [facility] Bacteria identified Cx Nom (Unsp spec) Staphylococcus aureus Detected: mecA/C and MREJ Not Detected Methodology- Polymerase Chain Reaction (PCR) [facility] Bacteria identified Cx Nom (Unsp spec) STAPHYLOCOCCUS AUREUS Abnormal [facility] Bacteria identified Cx Nom (Unsp spec) (NOTE) Direct Gram Stain from bottle and Polymerase Chain Reaction (PCR) results called to and read back by: VIRGIE Joaquin on 07/03/21 at 7:45 [facility] Interpretation and review of laboratory results Abnormal [facility] Special Requests L HAND 1 ML [facility] Specimen Description .[facility] MISCELLANEOUS TESTINGon 06-17 Send Out Report PERFORMED AT [place] [employer] [facility] Test Name [place] ENC2 CSF [facility] MRI CERVICAL SPINE W WO CONT RASTon 07-04-2021 Radiology Study observation (narrative) [facility] Work Phone: Magnesiumon 07-04-2021 Magnesium [Mass/Vol] 1.8 mg/dL 1.6 - 2 .6 mg/dL [facility] POC Glucose Fingerstickon Glucose [Mass/Vol] 113 mg/dL High 65 - 105 mg/dL [facility] Interpretation and review of laboratory results Abnormal [facility] Glucose [Mass/Vol] 188 mg/dL High 65 - 105 mg/dL [facility] Interpretation and review of laboratory results Abnormal [facility] Glucose [Mass/Vol] 118 mg/dL High 65 - 105 mg/dL [facility] Interpretation and review of laboratory results Abnormal [facility] Glucose [Mass/Vol] 135 mg/dL High 65 - 105 mg/dL [facility] Interpretation and review of laboratory results Abnormal [facility] Basic Metabolic Panel w/ Ref rafael to MGon 07-03-2021 Anion gap [Moles/Vol] 11 mmol/L 9 - 17 mmol/L [facility] Calcium [Mass/Vol] 8.3 mg/dL Low 8.6 - 10. 4 mg/dL [facility] Chloride [Moles/Vol] 98 mmol/L 98 - 10 7 mmol/L [facility] CO2 [Moles/Vol] 25 mmol/L 20 - 31 mmol/L [facility] Creatinine [Mass/Vol] 0.81 mg/dL 0.50 - 0.90 mg/dL [facility] GFR >60 >60 mL/min [facility] GFR Non- >60 >60 mL/min [facility] GFR/1.73 sq M.predicted MDRD (S/P/Bld) [Vol rate/Area] [facility] Glucose [Mass/Vol] 108 mg/dL High 70 - 99 mg/dL [facility] Interpretation and review of laboratory results Abnormal [facility] Potassium [Moles/Vol] 2.9 mmol/L Critically low 3.7 - 5.3 mmol/L [facility] Sodium [Moles/Vol] 134 mmol/L Low 135 - 144 mmol/L [facility] Urea nitrogen (BldV) [Mass/Vol] 7 mg/dL 6 - 20 mg/dL [facility] C-Reactive Proteinon 022 CRP [Mass/Vol] 166.3 mg/L High 0.0 - 5.0 mg/L [facility] Interpretation and review of laboratory results Abnormal [facility] CBC with Auto Differentialon 07-03-2021 Absolute Eos # 0.19 [facility] Absolute Immature Granulocyte 0.09 [facility] Absolute Lymph # 2.40 [facility] Absolute [place] # 0.64 [facility] Basophils (Bld) [#/Vol] 10*3/uL B ON [facility] Basophils/100 WBC (Bld) 0 % 0 - 2 % [facility] [facility] Eosinophils/100 WBC (Bld) 1 % 1 - 4 % [facility] Hematocrit (Bld) [Volume fraction] 26.1 % Low 36.3 - 47.1 % [facility] Hemoglobin.gastrointest inal spec 1 Ql (Stl) 8.4 g/dL Low 11.9 - 15.1 g/dL [facility] Immature granulocytes/100 WBC (Bld) 1 % High 0 [facility] Interpretation and review of laboratory results Abnormal [facility] Lymphocytes/100 WBC (Bld) 18 % Low 24 - 43 % [facility] MCH (RBC) [Entitic mass] 26.1 pg 25.2 - 33.5 pg [facility] MCHC (RBC) [Mass/Vol] 32.2 g/dL 28.4 - 34.8 g/dL [facility] MCV (RBC) [Entitic vol] 81.1 fL Low 82.6 - 102.9 fL [facility] Monocytes/100 WBC (Bld) 5 % 3 - 12 % B ON [facility] NRBC Automated 0.0 0.0 per 100 WBC [facility] Platelet distribution width (Bld) [Ratio] 16.5 % High 11.8 - 14.4 % [facility] Platelet mean volume (Bld) [Entitic vol] 8.8 fL 8.1 - 13.5 fL [facility] Platelets (Bld) [#/Vol] 261 10*3/uL [facility] RBC (Bld) [#/Vol] 3.22 10*6/uL Low 3.95 - 5.1 1 m/uL [facility] RBC (Bld) [#/Vol] ANISOCYTOSIS PRESENT [facility] Seg Neutrophils 75 % High 36 - 65 % [facility] Absolute 10.31 High [facility] WBC (Bld) [#/Vol] 13.6 10*3/uL High [facility] [place] Culture, Blood 1on 2 Bacteria identified Cx Nom (Unsp spec) Positive Abnormal [facility] Bacteria identified Cx Nom (Unsp spec) DIRECT GRAM STAIN FROM BOTTLE: GRAM POSITIVE COCCI IN CLUSTERS [facility] Bacteria identified Cx Nom (Unsp spec) STAPHYLOCOCCUS AUREUS This isolate is methicillin susceptible. Abnormal [facility] Bacteria identified Cx Nom (Unsp spec) (NOTE) Direct Gram Stain from bottle result called to and read back by: VIRGIE Noland at 2200 on 07.01.2021 [facility] Interpretation and review of laboratory results Abnormal [facility] Specimen Description .BLOOD [facility] ECHO Complete 2D W Doppler W Coloron 07-03-2021 [facility] STV CPACS [facility] Work Phone: ECHO Complete 2D W Doppler W ColorOrdered By: Sintia Salazar on 07-03-2021 [facility] Work Phone: FL MODIFIED BARIUM SWALLOW W VIDEOon 07-03-2021 [facility] RIS CONSOLIDATED [facility] RIS CONSOLIDATED [facility] Work Phone: Radiology Study observation (narrative) [facility] Work Phone: [place] MODIFIED BARIUM SWALLOW W VIDEOOrdered By: Rufus Burnette on 07-03-2021 [facility] Work Phone: Hemoglobin and Hematocriton 07-03-2021 Hematocrit (Bld) [Volume fraction] 24.2 % Low 36.3 - 47.1 % [facility] Hemoglobin.gastrointest inal spec 1 Ql (Stl) 7.8 g/dL Low 11.9 - 15.1 g/dL [facility] Interpretation and review of laboratory results Abnormal [facility] Herpes simplex virus PCRon 0 07-03-2021 HSV, PCR Not detected [facility] Magnesiumon 07-03-2021 Magnesium [Mass/Vol] 2.0 mg/dL 1.6 - 2 .6 mg/dL [facility] NM BONE SCAN 3 PHASEon 07-03 [facility] RIS CONSOLIDATED [facility] RIS CONSOLIDATED [facility] Work Phone: Radiology Study observation (narrative) [facility] [email or web address] Work Phone: NM BONE SCAN 3 PHASEOrdered By: Mark Anthony Duke on 07-03-2021 [facility] [email or web address] Work Phone: POC Glucose Fingerstickon Glucose [Mass/Vol] 146 mg/dL High 65 - 105 mg/dL [facility] Interpretation and review of laboratory results Abnormal [facility] Glucose [Mass/Vol] 108 mg/dL High 65 - 105 mg/dL [facility] Interpretation and review of laboratory results Abnormal [facility] Glucose [Mass/Vol] 168 mg/dL High 65 - 105 mg/dL [facility] Interpretation and review of laboratory results Abnormal [facility] Glucose [Mass/Vol] 111 mg/dL High 65 - 105 mg/dL [facility] Interpretation and review of laboratory results Abnormal [facility] Potassiumon 07-03-2021 Interpretation and review of laboratory results Abnormal [facility] Potassium [Moles/Vol] 3.4 mmol/L Low 3.7 - 5.3 mmol/L [facility] [email or web address] XR CERVICAL SPINE FLEXION AN D EXTENSIONon 07-03-2021 PN RIS CONSOLIDATED PN RIS CONSOLIDATED [facility] Work Phone: Radiology Study observation (narrative) [facility] [email or web address] Work Phone: XR CERVICAL SPINE FLEXION AN D EXTENSIONOrdered By: Chanda Garland on 07-03-2021 [facility] Work Phone: Basic Metabolic Panel w/ Ref rafael to MGon 07-02-2021 Anion gap [Moles/Vol] 11 mmol/L 9 - 17 mmol/L [facility] Calcium [Mass/Vol] 8.0 mg/dL Low 8.6 - 10. 4 mg/dL [facility] Chloride [Moles/Vol] 98 mmol/L 98 - 10 7 mmol/L [facility] CO2 [Moles/Vol] 25 mmol/L 20 - 31 mmol/L [facility] Creatinine [Mass/Vol] 0.66 mg/dL 0.50 - 0.90 mg/dL [facility] GFR >60 >60 mL/min [facility] GFR Non- >60 >60 mL/min [facility] GFR/1.73 sq M.predicted MDRD (S/P/Bld) [Vol rate/Area] [facility] Glucose [Mass/Vol] 67 mg/dL Low 70 - 99 mg/dL [facility] Interpretation and review of laboratory results Abnormal [facility] Potassium [Moles/Vol] 2.9 mmol/L Critically low 3.7 - 5.3 mmol/L [facility] Sodium [Moles/Vol] 134 mmol/L Low 135 - 144 mmol/L [facility] Urea nitrogen (BldV) [Mass/Vol] 9 mg/dL 6 - 20 mg/dL [facility] C-Reactive Proteinon 022 CRP [Mass/Vol] 61.4 mg/L High 0.0 - 5.0 mg/L [facility] Interpretation and review of laboratory results Abnormal [facility] CBC with Auto Differentialon 07-02-2021 Absolute Eos # 0.36 [facility] [email or web address] Absolute Immature Granulocyte 0.11 [facility] Absolute Lymph # 3.45 [facility] Absolute Lajas # 0.69 [facility] Basophils (Bld) [#/Vol] 10*3/uL [facility] Basophils/100 WBC (Bld) 0 % 0 - 2 % [facility] Eosinophils/100 WBC (Bld) 2 % 1 - 4 % [facility] Hematocrit (Bld) [Volume fraction] 28.2 % Low 36.3 - 47.1 % [facility] Hemoglobin.gastrointest inal spec 1 Ql (Stl) 9.0 g/dL Low 11.9 - 15.1 g/dL [facility] Immature granulocytes/100 WBC (Bld) 1 % High 0 [facility] Interpretation and review of laboratory results Abnormal [facility] Lymphocytes/100 WBC (Bld) 21 % Low 24 - 43 % [facility] MCH (RBC) [Entitic mass] 25.9 pg 25.2 - 33.5 pg [facility] MCHC (RBC) [Mass/Vol] 31.9 g/dL 28.4 - 34.8 g/dL [facility] MCV (RBC) [Entitic vol] 81.3 fL Low 82.6 - 102.9 fL [facility] Monocytes/100 WBC (Bld) 4 % 3 - 12 % [facility] NRBC Automated 0.0 0.0 per 100 WBC [facility] Platelet distribution width (Bld) [Ratio] 16.3 % High 11.8 - 14.4 % [facility] Platelet mean volume (Bld) [Entitic vol] 8.8 fL 8.1 - 13.5 fL [facility] Platelets (Bld) [#/Vol] 299 10*3/uL [facility] RBC (Bld) [#/Vol] 3.47 10*6/uL Low 3.95 - 5.1 1 m/uL [facility] RBC (Bld) [#/Vol] ANISOCYTOSIS PRESENT [facility] Seg Neutrophils 72 % High 36 - 65 % [facility] Segs Absolute 12.06 High [facility] WBC (Bld) [#/Vol] 16.7 10*3/uL High [facility] S [facility] Culture, Blood 1on 2 Bacteria identified Cx Nom (Unsp spec) Positive Abnormal [facility] Bacteria identified Cx Nom (Unsp spec) DIRECT GRAM STAIN FROM BOTTLE: GRAM POSITIVE COCCI IN CLUSTERS [facility] Bacteria identified Cx Nom (Unsp spec) STAPHYLOCOCCUS AUREUS This isolate is methicillin susceptible. Abnormal [facility] Bacteria identified Cx Nom (Unsp spec) (NOTE) Direct Gram Stain from bottle result called to and read back by: VIRGIE Ferraro AT 2058 ON 06/30/21 [facility] Interpretation and review of laboratory results Abnormal [facility] Special Requests LT HAND 9ML [facility] Specimen Description .BLOOD [facility] Hemoglobin and Hematocriton 07-02-2021 Hematocrit (Bld) [Volume fraction] 24.8 % Low 36.3 - 47.1 % [facility] Hemoglobin.gastrointest inal spec 1 Ql (Stl) 8.1 g/dL Low 11.9 - 15.1 g/dL [facility] Interpretation and review of laboratory results Abnormal [facility] Hematocrit (Bld) [Volume fraction] 29.0 % Low 36.3 - 47.1 % [facility] Hemoglobin.gastrointest inal spec 1 Ql (Stl) 9.1 g/dL Low 11.9 - 15.1 g/dL [facility] Interpretation and review of laboratory results Abnormal [facility] Magnesiumon 07-02-2021 Magnesium [Mass/Vol] 2.3 mg/dL 1.6 - 2 .6 mg/dL [facility] POC Glucose Fingerstickon Glucose [Mass/Vol] 122 mg/dL High 65 - 105 mg/dL [facility] Interpretation and review of laboratory results Abnormal [facility] Glucose [Mass/Vol] 105 mg/dL 65 - 105 mg/dL [facility] Glucose [Mass/Vol] 113 mg/dL High 65 - 105 mg/dL [facility] Interpretation and review of laboratory results Abnormal [facility] Glucose [Mass/Vol] 78 mg/dL 65 - 105 mg/dL [facility] Glucose [Mass/Vol] 111 mg/dL High 65 - 105 mg/dL [facility] Interpretation and review of laboratory results Abnormal [facility] Potassiumon 07-02-2021 Interpretation and review of laboratory results Abnormal [facility] Potassium [Moles/Vol] 3.5 mmol/L Low 3.7 - 5.3 mmol/L [facility] Interpretation and review of laboratory results Abnormal [facility] Potassium [Moles/Vol] 3.5 mmol/L Low 3.7 - 5.3 mmol/L [facility] Basic Metabolic Panel w/ Ref rafael to MGon 07-01-2021 Anion gap [Moles/Vol] 10 mmol/L 9 - 17 mmol/L [facility] Calcium [Mass/Vol] 8.2 mg/dL Low 8.6 - 10. 4 mg/dL [facility] Chloride [Moles/Vol] 102 mmol/L 98 - 10 7 mmol/L [facility] CO2 [Moles/Vol] 25 mmol/L 20 - 31 mmol/L [facility] Creatinine [Mass/Vol] 0.97 mg/dL High 0.50 - 0.90 mg/dL [facility] GFR >60 >60 mL/min [facility] GFR Non- 59 mL/min Low >60 [facility] GFR/1.73 sq M.predicted MDRD (S/P/Bld) [Vol rate/Area] [facility] Glucose [Mass/Vol] 117 mg/dL High 70 - 99 mg/dL [facility] Interpretation and review of laboratory results Abnormal [facility] Potassium [Moles/Vol] 2.2 mmol/L Critically low 3.7 - 5.3 mmol/L [facility] Sodium [Moles/Vol] 137 mmol/L 135 - 144 mmol/L [facility] Urea nitrogen (BldV) [Mass/Vol] 18 mg/dL 6 - 20 mg/dL [facility] C-Reactive Proteinon 022 CRP [Mass/Vol] 38.5 mg/L High 0.0 - 5.0 mg/L [facility] Interpretation and review of laboratory results Abnormal [facility] CBC with Auto Differentialon 07-01-2021 Absolute Eos # 0.00 [facility] Absolute Immature Granulocyte 0.00 [facility] Absolute Lymph # 2.14 [facility] Absolute Lajas # 0.76 [facility] Basophils (Bld) [#/Vol] 0.00 10*3/uL [facility] Basophils/100 WBC (Bld) 0 % 0 - 2 % B ON [facility] Eosinophils/100 WBC (Bld) 0 % Low 1 - 4 % [facility] Hematocrit (Bld) [Volume fraction] 28.4 % Low 36.3 - 47.1 % [facility] Hemoglobin.gastrointest inal spec 1 Ql (Stl) 9.0 g/dL Low 11.9 - 15.1 g/dL [facility] Immature granulocytes/100 WBC (Bld) 0 % 0 [facility] Interpretation and review of laboratory results Abnormal [facility] Lymphocytes/100 WBC (Bld) 17 % Low 24 - 44 % [facility] MCH (RBC) [Entitic mass] 26.2 pg 25.2 - 33.5 pg [facility] MCHC (RBC) [Mass/Vol] 31.7 g/dL 28.4 - 34.8 g/dL [facility] MCV (RBC) [Entitic vol] 82.8 fL 82.6 - 102.9 fL [facility] Monocytes/100 WBC (Bld) 6 % 1 - 7 % B ON [facility] Morphology Malachi (Bld) [Interp] ANISOCYTOSIS PRESENT [facility] NRBC Automated 0.0 0.0 per 100 WBC [facility] Platelet distribution width (Bld) [Ratio] 16.2 % High 11.8 - 14.4 % [facility] Platelet mean volume (Bld) [Entitic vol] 8.8 fL 8.1 - 13.5 fL [facility] Platelets (Bld) [#/Vol] 284 10*3/uL [facility] RBC (Bld) [#/Vol] 3.43 10*6/uL Low 3.95 - 5.1 1 m/uL [facility] Seg Neutrophils 77 % High 36 - 66 % [facility] Segs Absolute 9.70 High [facility] WBC (Bld) [#/Vol] 12.6 10*3/uL High [facility] [place] Culture, CSFon 07-01-2021 Bacteria identified Cx Nom (Unsp spec) NO GROWTH 3 DAYS [facility] Direct Exam NO NEUTROPHILS SEEN [facility] Direct Exam NO ORGANISMS SEEN [facility] Direct Exam Gram stain made from cytocentrifuged specimen. Organisms and cells will be concentrated. [facility] Specimen Description .CSF [facility] Hemoglobin and Hematocriton 07-01-2021 Hematocrit (Bld) [Volume fraction] 27.2 % Low 36.3 - 47.1 % [facility] Hemoglobin.gastrointest inal spec 1 Ql (Stl) 8.8 g/dL Low 11.9 - 15.1 g/dL [facility] Interpretation and review of laboratory results Abnormal [facility] Hematocrit (Bld) [Volume fraction] 26.7 % Low 36.3 - 47.1 % [facility] Hemoglobin.gastrointest inal spec 1 Ql (Stl) 8.6 g/dL Low 11.9 - 15.1 g/dL [facility] Interpretation and review of laboratory results Abnormal [facility] Lyme Disease AB, CSFon 07-01 B burgdorferi Ab,CSF 0.02 <=0.99 [facility] Magnesiumon 07-01-2021 Magnesium [Mass/Vol] 1.9 mg/dL 1.6 - 2 .6 mg/dL [facility] Magnesium [Mass/Vol] 2.0 mg/dL 1.6 - 2 .6 mg/dL [facility] Oligoclonal Bandson 07-02-19 22 CSF Isoelectric Focusing Interpretation See Note [facility] Oligo Bands Negative [facility] Oligoclonal Bands Number Matching [facility] POC Glucose Fingerstickon Glucose [Mass/Vol] 84 mg/dL 65 - 105 mg/dL [facility] Glucose [Mass/Vol] 104 mg/dL 65 - 105 mg/dL [facility] Glucose [Mass/Vol] 65 mg/dL 65 - 105 mg/dL [facility] Glucose [Mass/Vol] 107 mg/dL High 65 - 105 mg/dL [facility] Interpretation and review of laboratory results Abnormal [facility] Glucose [Mass/Vol] 115 mg/dL High 65 - 105 mg/dL [facility] Interpretation and review of laboratory results Abnormal [facility] Potassiumon 07-01-2021 Interpretation and review of laboratory results Abnormal [facility] Potassium [Moles/Vol] 2.5 mmol/L Critically low 3.7 - 5.3 mmol/L [facility] Interpretation and review of laboratory results Abnormal [facility] Potassium [Moles/Vol] 2.4 mmol/L Critically low 3.7 - 5.3 mmol/L [facility] Quantiferon TB Goldon 2021 QuantiFERON Mitogen 1.11 IU/mL [facility] QuantiFERON Nil 0.02 IU/mL [facility] Quantiferon TB Minus NIL Negative Negative [facility] Quantiferon TB1 Minus NIL 0.00 [facility] Quantiferon TB2 Minus NIL 0.00 [facility] West Nile Virus, CSFon 07-01 [place] IGG CSF 0.19 <=1.29 IV [facility] [place] IGM CSF 0 <=0.89 IV [facility] Culture, Blood 1on 2 Bacteria identified Cx Nom (Unsp spec) Positive Abnormal [facility] Bacteria identified Cx Nom (Unsp spec) DIRECT GRAM STAIN FROM BOTTLE: GRAM POSITIVE COCCI IN CLUSTERS [facility] Bacteria identified Cx Nom (Unsp spec) Staphylococcus aureus Detected: mecA/C and MREJ Not Detected [facility] Bacteria identified Cx Nom (Unsp spec) STAPHYLOCOCCUS AUREUS This isolate is methicillin susceptible. Abnormal [facility] Bacteria identified Cx Nom (Unsp spec) (NOTE) Direct Gram Stain from bottle and Polymerase Chain Reaction (PCR) results called to and read back by: Dino Casillas at 0248 on 06/29/2021. [facility] Special Requests RT FA 3 ML [facility] Specimen Description .BLOOD [facility] Culture, Blood 2on 2 Bacteria identified Cx Nom (Unsp spec) Positive Abnormal [facility] Bacteria identified Cx Nom (Unsp spec) DIRECT GRAM STAIN FROM BOTTLE: GRAM POSITIVE COCCI IN CLUSTERS [facility] Bacteria identified Cx Nom (Unsp spec) STAPHYLOCOCCUS AUREUS For susceptibility, refer to previous culture. Abnormal [facility] Bacteria identified Cx Nom (Unsp spec) (NOTE) Direct Gram Stain from bottle result called to and read back by: Dino Casillas at 0245 on 06/29/2021. [facility] Interpretation and review of laboratory results Abnormal [facility] Special Requests LEFT HAND 1 ML [facility] Specimen Description .BLOOD [facility] Hemoglobin and Hematocriton 06-30-2021 Hematocrit (Bld) [Volume fraction] 29.3 % Low 36.3 - 47.1 % [facility] Hemoglobin.gastrointest inal spec 1 Ql (Stl) 9.4 g/dL Low 11.9 - 15.1 g/dL [facility] Interpretation and review of laboratory results Abnormal [facility] POC Glucose Fingerstickon Glucose [Mass/Vol] 173 mg/dL High 65 - 105 mg/dL [facility] Interpretation and review of laboratory results Abnormal [facility] Glucose [Mass/Vol] 182 mg/dL High 65 - 105 mg/dL [facility] Interpretation and review of laboratory results Abnormal [facility] Glucose [Mass/Vol] 171 mg/dL High 65 - 105 mg/dL [facility] Interpretation and review of laboratory results Abnormal [facility] XR FOOT LEFT (MIN 3 VIEWS)on 06-30-2021 [facility] RIS CONSOLIDATED PN RIS CONSOLIDATED [facility] Work Phone: XR FOOT LEFT (MIN 3 VIEWS)Or dered By: Enedelia Garcia on 06-30-2021 [facility] [email or web address] Work Phone: Acetaminophen Levelon 2021 Acetaminophen Level <5 Low 10 - 30 ug/mL [facility] Ammoniaon 06-28-2021 Ammonia (P) [Moles/Vol] 12 umol/L 11 - 51 umol/L [facility] CBC with Auto Differentialon 06-28-2021 Absolute Bands # 0.43 [facility] alth Absolute Eos # [facility] Absolute Lymph # 1.51 [facility] Absolute Lajas # 1.08 High [facility] Hea lth Bands 2 % 0 - 10 % [facility] Basophils (Bld) [#/Vol] 0 - 2 % M [facility] Basophils Absolute [facility] Eosinophils % 0 - 5 % [facility]Bld[facility] [Volume fraction] 30.9 % Low 36 - 46 % [facility] Hemoglobin.gastrointest inal spec 1 Ql (Stl) 10.1 g/dL Low 12.0 - 16.0 g/dL [facility] Interpretation and review of laboratory results Abnormal [facility] Lymphocytes/100 WBC (Bld) 7 % Low 15 - 40 % [facility] MCH (RBC) [Entitic mass] 26.2 pg 26 - 34 pg [facility] MCHC (RBC) [Mass/Vol] 32.6 g/dL 31 - 3 7 g/dL [facility] MCV (RBC) [Entitic vol] 80.5 fL 80 - 100 fL [facility] Monocytes/100 WBC (Bld) 5 % 4 - 8 % M [facility] Morphology Malachi (Bld) [Interp] Manual Differential Performed [facility] Platelet distribution width (Bld) [Ratio] 17.1 % High 12.1 - 15.2 % [facility] Platelets (Bld) [#/Vol] 537 10*3/uL High [facility] RBC (Bld) [#/Vol] 3.83 10*6/uL Low 4.0 - 5.2 m/uL [facility] Segmented neutrophils/100 WBC (Bld) 86 % High 47 - 75 % [facility] Segs Absolute 18.48 High [facility] Healt h WBC (Bld) [#/Vol] 21.5 10*3/uL Critically high [facility] CKon 06-28-2021 CK [Catalytic activity/Vol] 63 U/L 26 - 192 U/L [facility] COVID-19, Rapidon 06-28-2021 SARS-CoV-2 (COVID-19) RNA CAL+probe Ql (Unsp spec) Not detected Not Detected [facility] Comment on above: Rapid NAAT: The [...] management decisions. Fact sheet for Healthcare Providers: https://www.fda.gov/media/130991/download Fact sheet for Patients: https://www.fda.gov/media/935270/download Methodology: Isothermal Nucleic Acid Amplification Specimen Description .NASOPHARYNGEAL SWAB [facility] CT ABDOMEN PELVIS W IV CONTR AST Additional Contrast? Noneon 06-28-2021 1. No evidence of bowel obstruction. 2. Normal appendix. 3. Status post cholecystectomy. [facility] RIS CONSOLIDATED EXAMINATION: CT ABDOMEN PELVIS W [...] lesions. Laminectomy changes are noted at L4. [facility] Charly Mendoza MD - 06/28/2021 EXAMINATION: [...] 2. Normal appendix. 3. Status post cholecystectomy. [employer]aweek Phone: Radiology Study observation (narrative) [employer] Work Phone: CT ABDOMEN PELVIS W IV CONTR AST Additional Contrast? NoneOrdered By: Charly Mendoza on 06-28-2021 [employer] Work Phone: CT Head WO Contraston 2021 1. Poorly diagnostic examination due to patient motion. 2. No gross evidence of hemorrhage or mass effect. A telephone call regarding the findings in examination and limitations the study was made to and acknowledged by Dr. Boothe in the emergency department at 4:55 AM on 06/28/2021. [facility] INDICATION: 56 years old; Female. Change [...] evaluated in the present study. OTHER: None. [facility] Alek Kike - 06/28/2021 INDICATION: 56 [...] emergency department at 4:55 AM on 06/28/2021. [employer] Work Phone: Radiology Study observation (narrative) [employer] [facility] Work Phone: CT Head WO ContrastOrdered B y: Kike Maguire on 06-28-2021 [employer] Work Phone: Comprehensive Metabolic Pane l w/ Reflex to MGon 06-28-2021 Albumin [Mass/Vol] 4 g/dL 3.5 - 5.2 g/dL [employer] ALP (Bld) [Catalytic activity/Vol] 290 U/L High 35 - 104 U/L [employer] ALT [Catalytic activity/Vol] 25 U/L 5 - 33 U/L [employer] Anion gap [Moles/Vol] 16 mmol/L 9 - 17 mmol/L [employer] AST [Catalytic activity/Vol] 16 U/L <32 [employer] Bilirubin [Mass/Vol] 0.45 mg/dL 0.30 - 1.20 mg/dL [employer] Calcium [Mass/Vol] 9.9 mg/dL 8.6 - 10. 4 mg/dL [employer] Chloride [Moles/Vol] 95 mmol/L Low 98 - 10 7 mmol/L [employer] CO2 [Moles/Vol] 27 mmol/L 20 - 31 mmol/L [employer] Creatinine [Mass/Vol] 0.89 mg/dL 0.50 - 0.90 mg/dL [facility] Free PSA/Total PSA [Mass fraction] 8.5 g/dL High 6.4 - 8.3 g/dL [facility] GFR >60 >60 mL/min [facility] GFR Non- >60 >60 mL/min [facility] GFR/1.73 sq M.predicted MDRD (S/P/Bld) [Vol rate/Area] [facility] Comment on above: Average GFR for 50-5 9 years old: 93 mL/min/1.73sq m Chronic Kidney Disease: <60 mL/min/1.73sq m Kidney failure: <15 mL/min/1.73sq m eGFR calculated using average adult body mass. Additional eGFR calculator available at: http://www.[employer]/multiple_crcl_2011.htm Glucose [Mass/Vol] 268 mg/dL High 70 - 99 mg/dL [facility] Interpretation and review of laboratory results Abnormal [facility] Potassium [Moles/Vol] 3.4 mmol/L Low 3.7 - 5.3 mmol/L [facility] Sodium [Moles/Vol] 138 mmol/L 135 - 144 mmol/L [facility] Urea nitrogen (BldV) [Mass/Vol] 25 mg/dL High 6 - 20 mg/dL [facility] Urea nitrogen/Creatinine (Bld) [Mass ratio] 28 High [facility] Ethanolon 06-28-2021 Ethanol [Mass/Vol] mg/dL <10 mg/dL [facility] Ethanol percent <0.010 % [facility] Lactic Acidon 06-28-2021 Lactate [Moles/Vol] 1.6 mmol/L 0.5 - 2. 2 mmol/L [facility] Lipaseon 06-28-2021 Lipase [Catalytic activity/Vol] 30 U/L 13 - 60 U/L [facility] Magnesiumon 06-28-2021 Magnesium [Mass/Vol] 1.9 mg/dL 1.6 - 2 .6 mg/dL [facility] Microscopic Urinalysison - [facility] Epithelial Cells UA 0 TO 2 /HPF [facility] RBC, UA 5 TO 10 [facility] No Panel Informationon 06-28 Interpretation and review of laboratory results Abnormal [facility] Salicylateon 06-28-2021 Salicylate Lvl <1 Low 3 - 10 mg/dL [facility] Urinalysison 06-28-2021 Bilirubin Urine Negative NEGATIVE [facility] lt Color, UA Yellow Yellow [facility] Glucose, Ur 1000 mg/dL Abnormal NEGATIVE [facility] Interpretation and review of laboratory results Abnormal [facility] Ketones Ql (U) SMALL Abnormal NEGATIVE [facility] Leukocyte esterase Test strip Ql (U) Negative NEGATIVE [facility] Nitrite, Urine Negative NEGATIVE [facility] pH, UA 7.0 [facility] Protein, UA 2+ Abnormal NEGATIVE [facility] Specific [place], UA 1.010 [facility] Turbidity UA Hazy Abnormal Clear [facility] Urinalysis Comments [facility] Urine Hgb 1+ Abnormal NEGATIVE [facility] Urobilinogen, Urine Normal Normal [facility] Urine Drug Screenon 06-29-19 Amphetamine Screen, Ur Negative NEGATIVE [facility] Comment on above: (Positive cutoff 500 ng/mL) Barbiturate Screen, Ur Negative NEGATIVE [facility] Comment on above: (Positive cutoff 200 ng/mL) Benzodiazepine Screen, Urine Negative NEGATIVE [facility] Comment on above: (Positive cutoff 150 ng/mL) Cannabinoid Scrn, Ur Negative NEGATIVE [facility] Comment on above: (Positive cutoff 50 ng/mL) Cocaine Metabolite, Urine Negative NEGATIVE [facility] Comment on above: (Positive cutoff 150 ng/mL) Interpretation and review of laboratory results Abnormal [facility] Methadone Screen, Urine Negative NEGATIVE [facility] Comment on above: (Positive cutoff 200 ng/mL) Methamphetamine, Urine Negative NEGATIVE [facility] Comment on above: (Positive cutoff 500 ng/mL) Opiates, Urine Positive Abnormal NEGATIVE [facility] Comment on above: (Positive cutoff 100 ng/mL) Oxycodone Screen, Ur Negative NEGATIVE [facility] Comment on above: (Positive cutoff 100 ng/mL) Phencyclidine, Urine Negative NEGATIVE [facility] Comment on above: (Positive cutoff 25 ng/mL) Propoxyphene, Urine Negative NEGATIVE [facility] Comment on above: (Positive cutoff 300 ng/mL) Tricyclic Antidepressants, Urine Negative NEGATIVE [facility] Comment on above: (Positive cutoff 300 ng/mL) Drug screen results are to be used for medical purposes only. All positive results are unconfirmed. Testing for employment or legal uses should be sent to a reference laboratory for confirmation. [employer] XR CHEST PORTABLEon 06-29-19 22 No acute abnormality. [facility] CLINICAL HISTORY: altered mental status COMPARISON: none FINDINGS: Portable AP view of the chest obtained. Cardiomediastinal silhouette is normal. Lungs are clear, no evidence of infiltrate, suspicious nodule, or mass. No evidence of significant pleural fluid on this portable projection. No acute bony abnormality. [facility] Leonardo Lopes M D - 06/28/2021 CLINICAL HISTORY: altered mental status COMPARISON: none FINDINGS: Portable AP view of the chest obtained. Cardiomediastinal silhouette is normal. Lungs are clear, no evidence of infiltrate, suspicious nodule, or mass. No evidence of significant pleural fluid on this portable projection. No acute bony abnormality. IMPRESSION: No acute abnormality. [employer] Work Phone: Radiology Study observation (narrative) [employer] [facility] Work Phone: XR CHEST PORTABLEOrdered By: Leonardo Lopes on 06-28-2021 [employer] Work Phone: COVID-19, MOLECULARon 2021 SARS-CoV-2 (COVID-19) RNA CAL+probe Ql (Unsp spec) Not detected Normal Not Detected [facility] Comment on above: Order Comment: This test [...] at the following links: For Healthcare Providers: https://www.fda.gov/media/430231/download For Patients: https://www.fda.gov/media/677705/download Performed By: #### L [id number] #### [place] [address] Skylar Niño M.D. [id number] MR FOOT LEFT WITHOUT CONTRAS Ton 05-21-2021 [...] on FriMay 22, 2021 7:54:35 AM EDT [facility] Comment on above: Order Comment: Injur [...] ID: [id number] Dictated by: LUIS POLANCO on [place] May 20, 2021 4:40:24 PM EDT Transcribed by: LUIS POLANCO on [place] May 20, 2021 4:40:24 PM EDT Finalized by: LUIS POLANCO on [place] May 20, 2021 4:40:24 PM EDT [facility] Comment on above: Order Comment: Injur [...] patent on the right. SCA patent bilaterally. [employer] patent bilaterally. Basilar artery and basilar tip [...] AM EDT Finalized by: KIKE MAGUIRE on [facility] May 19, 2021 3:53:28 AM EDT [facility] Comment on above: Order Comment: Injur [...] ID: [id number] Dictated by: JEAN ANDERSON on [facility] May 19, 2021 10:41:14 PM EDT Transcribed by: JEAN ANDERSON on [facility] May 19, 2021 10:41:14 PM EDT Finalized by: JEAN ANDERSON on [facility] May 19, 2021 10:41:14 PM EDT [facility] Comment on above: Order Comment: Injur [...] ID: [id number] Dictated by: Pili FONTAINE on [place] May 20, 2021 8:14:06 AM EDT Transcribed by: JANY FORBES on [place] May 20, 2021 8:50:25 AM EDT Finalized by: Pili FONTAINE on [place] May 20, 2021 2:03:56 PM EDT Normal [facility] Comment on above: Order Comment: Injur y/Trauma [...] May 19, 2021 6:07:29 PM EDT Normal [facility] Comment on above: Order Comment: Injur y/Trauma or Illness?:Illness/Other How long have you had these symptoms (acute/chronic)?:Acute Reason for exam?:elevated liver enzymes History of cancer?:u Surgeries, chemotherapy, or radiation?:u Type of Exam?:Initial Additional signs and symptoms?:n COVID-19, MOLECULARon 2021 SARS-CoV-2 (COVID-19) RNA CAL+probe Ql (Unsp spec) Not detected Normal Not Detected [facility] Comment on above: Result Comment: This test was performed under the FDA's Emergency Use Authorization (EUA). Testing was performed using the Xpert Xpress SARS-CoV-2 RT-PCR [employer] assay on the [employer] platform. This test has not been approved for use in asymptomatic patients and its performance in this patient population has not been evaluated. Negative results do not rule out the presence of SARS-CoV-2/COVID-19. Fact sheets for this EUA can be found at the following links: For Healthcare Providers: https://www.fda.gov/media/470433/download For Patients: https://www.fda.gov/media/362392/download Performed By: #### L [id number] #### SH [address] [address] Skylar Niño M.D. [id number] CT CERVICAL SPINE WITHOUT CO NTRASTon 05-18-2021 [...] to severe right facet arthropathy at C5-C6. [id number] stenosis of the right C5-C6 neural foramen [...] the cervical spine without central spinal stenosis. [id number] stenosis the right C5-C6 neural foramen secondary to mild uncovertebral hypertrophy and moderate to severe right facet hypertrophy. Workstation ID: [id number] Dictated by: ALBERT MARIA on FriMay 18, 2021 5:23:47 PM EDT Transcribed by: ALBERT MARIA on FriMay 18, 2021 5:23:47 PM EDT Finalized by: ALBERT MARIA on FriMay 18, 2021 5:23:47 PM EDT Normal [facility] Comment on above: [...] superior forming alt MD: -7.89 (-5.69) Normal [facility] BUN CREAon 05-11-2021 Creatinine [Mass/Vol] 1.38 mg/dL High 0.50 - 1.20 mg/dL [facility] GFR/1.73 sq M.predicted CKD-EPI (S/P/Bld) [Vol rate/Area] 44 Low >=60 mL/min/1.73 m2 [facility] Comment on above: Reported eGFR is bas ed on the CKD-EPI 2020 equation using creatinine, age, and sex. Interpretation and review of laboratory results Abnormal [facility] Urea nitrogen [Mass/Vol] 27 mg/dL High 7 - 25 mg/dL [facility] Urea nitrogen/Creatinine [Mass ratio] 20 mg/mg [facility] Creatinine [Mass/Vol] 1.38 mg/dL High 0.50-1.[address] [facility] Comment on above: Order Comment: Prior to first [facility] and every 2 weeks if baseline CR is within normal limits. Performed By: #### B CR #### [facility] (DEFAULT) [address] [place] [address] GFR/1.73 sq M.predicted among non-blacks MDRD (S/P/Bld) [Vol rate/Area] 44 mL/min/{1.73_m2} Low >=60 [facility] Comment on above: Order Comment: Prior to first [facility] and every 2 weeks if baseline CR is within normal limits. Result Comment: Repo rted eGFR is based on the CKD-EPI 2020 equation using creatinine, age, and sex. Performed By: #### B CR #### [facility] (DEFAULT) [address] [place] [address] Urea nitrogen [Mass/Vol] 27 mg/dL High 09-10 [facility] Comment on above: Order Comment: Prior to first [facility] and every 2 weeks if baseline CR is within normal limits. Performed By: #### B CR #### [facility] (DEFAULT) [address] [place] [address] Urea nitrogen/Creatinine [Mass ratio] 20 mg/mg Normal [facility] Comment on above: Order Comment: Prior to first [facility] and every 2 weeks if baseline CR is within normal limits. Performed By: #### B CR #### [facility] (DEFAULT) [address] [place] [id number] CBC AND ELECTRONIC DIFFon Basophils (Bld) [#/Vol] 10*3/uL 0.00 - 0.15 K/uL [facility] Basophils/100 WBC (Bld) 0.2 % [facility] DIFF STATUS Electronic Differential [facility] Eosinophils (Bld) [#/Vol] 0.16 10*3/uL 0.00 - 0.42 K/uL [facility] Eosinophils/100 WBC (Bld) 1.9 % [facility] Erythrocyte distribution width (RBC) [Ratio] 15.4 % High 10.8 - 14.9 % [facility] Hematocrit (Bld) [Volume fraction] 36.1 % 34.9 - 44.3 % [facility] Hemoglobin (Bld) [Mass/Vol] 11.7 g/dL 11.4 - 15.2 g/dL [facility] Immature granulocytes (Bld) [#/Vol] 10*3/uL <=0.09 K/uL [facility] Immature granulocytes/100 WBC (Bld) 0.2 % [facility] Interpretation and review of laboratory results Abnormal [facility] Lymphocytes (Bld) [#/Vol] 2.68 10*3/uL 1.16 - 3.51 K/uL [facility] Lymphocytes/100 WBC (Bld) 32.0 % [facility] MCH (RBC) [Entitic mass] 27.6 pg 25.9 - 33.9 pg [facility] MCHC (RBC) [Mass/Vol] 32.4 g/dL 31.4 - 35.9 g/dL [facility] MCV (RBC) [Entitic vol] 85.1 fL 79.6 - 97.7 fL [facility] Monocytes (Bld) [#/Vol] 0.37 10*3/uL 0.22 - 0.87 K/uL [facility] Monocytes/100 WBC (Bld) 4.4 % [facility] Neutrophils (Bld) [#/Vol] 5.13 10*3/uL 1.64 - 7.28 K/uL [facility] Nucleated RBC/100 WBC (Bld) [Ratio] 0.0 % <=0.2 /100 WBC [facility] Platelet mean volume (Bld) [Entitic vol] 9.8 fL 8.5 - 12.2 fL [facility] Platelets (Bld) [#/Vol] 338 10*3/uL 150 - 393 K/uL [facility] RBC (Bld) [#/Vol] 4.24 10*6/uL [facility] Segmented neutrophils/100 WBC (Bld) 61.3 % [facility] WBC (Bld) [#/Vol] 8.38 10*3/uL 3.99 - 11.19 K/uL [facility] Basophils (Bld) [#/Vol] 10*3/uL Normal 0.00-0.15 [facility] Comment on above: Order Comment: Prior to first [facility] and then every 2 weeks.until results within normal limits. Collect weekly if baseline is abnormal. Performed By: #### L [id number] #### [facility] (DEFAULT) [address] [address] Basophils/100 WBC (Bld) 0.2 % Normal [facility] Comment on above: Order Comment: Prior to first [facility] and then every 2 weeks.until results within normal limits. Collect weekly if baseline is abnormal. Performed By: #### L [id number] #### [facility] (DEFAULT) [address] [address] DIFF STATUS Electronic Differential Normal [facility] Comment on above: Order Comment: Prior to first [facility] and then every 2 weeks.until results within normal limits. Collect weekly if baseline is abnormal. Performed By: #### L [id number] #### [facility] (DEFAULT) [address] [address] Eosinophils (Bld) [#/Vol] 0.16 10*3/uL Normal 0.00-0.42 [facility] Comment on above: Order Comment: Prior to first [facility] and then every 2 weeks.until results within normal limits. Collect weekly if baseline is abnormal. Performed By: #### L [id number] #### [facility] (DEFAULT) [address] [address] Eosinophils/100 WBC (Bld) 1.9 % Normal [facility] Comment on above: Order Comment: Prior to first [facility] and then every 2 weeks.until results within normal limits. Collect weekly if baseline is abnormal. Performed By: #### L [id number] #### [facility] (DEFAULT) [address] [address] Hematocrit (Bld) [Volume fraction] 36.1 % Normal 34.9-44.3 [facility] Comment on above: Order Comment: Prior to first [facility] and then every 2 weeks.until results within normal limits. Collect weekly if baseline is abnormal. Performed By: #### L [id number] #### [facility] (DEFAULT) [address] [address] Hemoglobin (Bld) [Mass/Vol] 11.7 g/dL Normal 11.4-15.2 [facility] Comment on above: Order Comment: Prior to first [facility] and then every 2 weeks.until results within normal limits. Collect weekly if baseline is abnormal. Performed By: #### L [id number] #### [facility] (DEFAULT) [address] [address] Immature Grans % 0.2 % Normal [facility] Comment on above: Order Comment: Prior to first [facility] and then every 2 weeks.until results within normal limits. Collect weekly if baseline is abnormal. Performed By: #### L [id number] #### [facility] (DEFAULT) [address] [address] Immature Grans Absolute <0.04 Normal <=0.09 [facility] Comment on above: Order Comment: Prior to first [facility] and then every 2 weeks.until results within normal limits. Collect weekly if baseline is abnormal. Performed By: #### L [id number] #### [facility] (DEFAULT) [address] [address] Lymphocytes (Bld) [#/Vol] 2.68 10*3/uL Normal 1.16-3.51 [facility] Comment on above: Order Comment: Prior to first [facility] and then every 2 weeks.until results within normal limits. Collect weekly if baseline is abnormal. Performed By: #### L [id number] #### [facility] (DEFAULT) [address] [address] Lymphocytes/100 WBC (Bld) 32.0 % Normal [facility] Comment on above: Order Comment: Prior to first [facility] and then every 2 weeks.until results within normal limits. Collect weekly if baseline is abnormal. Performed By: #### L [id number] #### [facility] (DEFAULT) [address] [address] MCV (RBC) [Entitic vol] 85.1 fL Normal 79.6-97.7 [facility] Comment on above: Order Comment: Prior to first [facility] and then every 2 weeks.until results within normal limits. Collect weekly if baseline is abnormal. Performed By: #### L [id number] #### [facility] (DEFAULT) [address] [address] Mean Cell Hgb 27.6 pg Normal 25.9-33.9 [facility] Comment on above: Order Comment: Prior to first [facility] and then every 2 weeks.until results within normal limits. Collect weekly if baseline is abnormal. Performed By: #### L [id number] #### [facility] (DEFAULT) [address] [address] Mean Cell Hgb Conc 32.4 g/dL Normal 31.4-35.9 [facility] Comment on above: Order Comment: Prior to first [facility] and then every 2 weeks.until results within normal limits. Collect weekly if baseline is abnormal. Performed By: #### L [id number] #### [facility] (DEFAULT) [address] [address] Monocytes (Bld) [#/Vol] 0.37 10*3/uL Normal 0.22-0.87 [facility] Comment on above: Order Comment: Prior to first [facility] and then every 2 weeks.until results within normal limits. Collect weekly if baseline is abnormal. Performed By: #### L [id number] #### [facility] (DEFAULT) [address] [address] Monocytes/100 WBC (Bld) 4.4 % Normal [facility] Comment on above: Order Comment: Prior to first [facility] In[facility] and then every 2 weeks.until results within normal limits. Collect weekly if baseline is abnormal. Performed By: #### L [id number] #### [facility] (DEFAULT) [address] [address] Nucleated RBC 0.0 /100 WBC Normal <=0.2 [facility] Comment on above: Order Comment: Prior to first [facility] In[facility] and then every 2 weeks.until results within normal limits. Collect weekly if baseline is abnormal. Performed By: #### L [id number] #### [facility] (DEFAULT) [address] [address] Platelet mean volume (Bld) [Entitic vol] 9.8 fL Normal 8.5-12.2 [facility] Comment on above: Order Comment: Prior to first [facility] and then every 2 weeks.until results within normal limits. Collect weekly if baseline is abnormal. Performed By: #### L [id number] #### [facility] (DEFAULT) [address] [address] Platelets (Bld) [#/Vol] 338 10*3/uL Normal 150-393 [facility] Comment on above: Order Comment: Prior to first [facility] and then every 2 weeks.until results within normal limits. Collect weekly if baseline is abnormal. Performed By: #### L [id number] #### [facility] (DEFAULT) [address] [address] RBC (Bld) [#/Vol] 4.24 10*6/uL Normal 3.91-5.04 [facility] Comment on above: Order Comment: Prior to first [facility] and then every 2 weeks.until results within normal limits. Collect weekly if baseline is abnormal. Performed By: #### L [id number] #### [facility] (DEFAULT) [address] [address] RBC Distribution 15.4 % High 10.8-14.9 [facility] Comment on above: Order Comment: Prior to first [facility] In[facility] and then every 2 weeks.until results within normal limits. Collect weekly if baseline is abnormal. Performed By: #### L [id number] #### [facility] (DEFAULT) [address] [address] Segs + Bands Auto 61.3 % Normal [facility] Comment on above: Order Comment: Prior to first [facility] In[facility] and then every 2 weeks.until results within normal limits. Collect weekly if baseline is abnormal. Performed By: #### L [id number] #### [facility] (DEFAULT) [address] [address] Segs + Bands,Absolute Auto 5.13 K/uL Normal 1.64-7.28 [facility] Comment on above: Order Comment: Prior to first [facility] Infusion and then every 2 weeks.until results within normal limits. Collect weekly if baseline is abnormal. Performed By: #### L [id number] #### [facility] (DEFAULT) [address] [address] WBC (Bld) [#/Vol] 8.38 10*3/uL Normal 3.99-11.19 [facility] Comment on above: Order Comment: Prior to first [facility] In[facility] and then every 2 weeks.until results within normal limits. Collect weekly if baseline is abnormal. Performed By: #### L [id number] #### [facility] (DEFAULT) [address] [address] BUN CREAon 04-25-2021 Creatinine [Mass/Vol] 1.29 mg/dL High 0.50-1.[address] [facility] Comment on above: Order Comment: Prior to first [facility] and every 2 weeks if baseline CR is within normal limits. Performed By: #### B CR #### [facility] (DEFAULT) [address] [address] GFR/1.73 sq M.predicted among non-blacks MDRD (S/P/Bld) [Vol rate/Area] 48 mL/min/{1.73_m2} Low >=60 [facility] Comment on above: Order Comment: Prior to first [facility] and every 2 weeks if baseline CR is within normal limits. Result Comment: Repo rted eGFR is based on the CKD-EPI 2020 equation using creatinine, age, and sex. Performed By: #### B CR #### [facility] (DEFAULT) [address] [address] Urea nitrogen [Mass/Vol] 27 mg/dL High 7-25 [facility] Comment on above: Order Comment: Prior to first [facility] and every 2 weeks if baseline CR is within normal limits. Performed By: #### B CR #### [facility] (DEFAULT) [address] [address] Urea nitrogen/Creatinine [Mass ratio] 21 mg/mg Normal [facility] Comment on above: Order Comment: Prior to first [facility] and every 2 weeks if baseline CR is within normal limits. Performed By: #### B CR #### [facility] (DEFAULT) [address] [address] CBC AND ELECTRONIC DIFFon Basophils (Bld) [#/Vol] 0.05 10*3/uL Normal 0.00-0.15 [facility] Comment on above: Order Comment: Prior to first [facility] and then every 2 weeks.until results within normal limits. Collect weekly if baseline is abnormal. Performed By: #### L [id number] #### [facility] (DEFAULT) [address] [address] Basophils/100 WBC (Bld) 0.6 % Normal [facility] Comment on above: Order Comment: Prior to first [facility] and then every 2 weeks.until results within normal limits. Collect weekly if baseline is abnormal. Performed By: #### L [id number] #### [facility] (DEFAULT) [address] [address] DIFF STATUS Electronic Differential Normal [facility] Comment on above: Order Comment: Prior to first [facility] and then every 2 weeks.until results within normal limits. Collect weekly if baseline is abnormal. Performed By: #### L [id number] #### [facility] (DEFAULT) [address] [address] Eosinophils (Bld) [#/Vol] 0.23 10*3/uL Normal 0.00-0.42 [facility] Comment on above: Order Comment: Prior to first [facility] and then every 2 weeks.until results within normal limits. Collect weekly if baseline is abnormal. Performed By: #### L [id number] #### [facility] (DEFAULT) [address] [address] Eosinophils/100 WBC (Bld) 2.6 % Normal [facility] Comment on above: Order Comment: Prior to first [facility] and then every 2 weeks.until results within normal limits. Collect weekly if baseline is abnormal. Performed By: #### L [id number] #### [facility] (DEFAULT) [address] [address] Hematocrit (Bld) [Volume fraction] 34.0 % Low 34.9-44.3 [facility] Comment on above: Order Comment: Prior to first [facility] and then every 2 weeks.until results within normal limits. Collect weekly if baseline is abnormal. Performed By: #### L [id number] #### [facility] (DEFAULT) [address] [address] Hemoglobin (Bld) [Mass/Vol] 10.7 g/dL Low 11.4-15.2 [facility] Comment on above: Order Comment: Prior to first [facility] and then every 2 weeks.until results within normal limits. Collect weekly if baseline is abnormal. Performed By: #### L [id number] #### [facility] (DEFAULT) [address] [address] Immature Grans % 0.2 % Normal [facility] Comment on above: Order Comment: Prior to first [facility] and then every 2 weeks.until results within normal limits. Collect weekly if baseline is abnormal. Performed By: #### L [id number] #### [facility] (DEFAULT) [address] [address] Immature Grans Absolute <0.04 Normal <=0.09 [facility] Comment on above: Order Comment: Prior to first [facility] and then every 2 weeks.until results within normal limits. Collect weekly if baseline is abnormal. Performed By: #### L [id number] #### [facility] (DEFAULT) [address] [address] Lymphocytes (Bld) [#/Vol] 2.20 10*3/uL Normal 1.16-3.51 [facility] Comment on above: Order Comment: Prior to first [facility] and then every 2 weeks.until results within normal limits. Collect weekly if baseline is abnormal. Performed By: #### L [id number] #### [facility] (DEFAULT) [address] [address] Lymphocytes/100 WBC (Bld) 24.5 % Normal [facility] Comment on above: Order Comment: Prior to first [facility] and then every 2 weeks.until results within normal limits. Collect weekly if baseline is abnormal. Performed By: #### L [id number] #### [facility] (DEFAULT) [address] [address] MCV (RBC) [Entitic vol] 85.4 fL Normal 79.6-97.7 [facility] Comment on above: Order Comment: Prior to first [facility] and then every 2 weeks.until results within normal limits. Collect weekly if baseline is abnormal. Performed By: #### L [id number] #### [facility] (DEFAULT) [address] [address] Mean Cell Hgb 26.9 pg Normal 25.9-33.9 [facility] Comment on above: Order Comment: Prior to first [facility] and then every 2 weeks.until results within normal limits. Collect weekly if baseline is abnormal. Performed By: #### L [id number] #### [facility] (DEFAULT) [address] [address] Mean Cell Hgb Conc 31.5 g/dL Normal 31.4-35.9 [facility] Comment on above: Order Comment: Prior to first [facility] and then every 2 weeks.until results within normal limits. Collect weekly if baseline is abnormal. Performed By: #### L AB980 #### [facility] (DEFAULT) [address] [address] Monocytes (Bld) [#/Vol] 0.41 10*3/uL Normal 0.22-0.87 [facility] Comment on above: Order Comment: Prior to first [facility] and then every 2 weeks.until results within normal limits. Collect weekly if baseline is abnormal. Performed By: #### L [id number] #### [facility] (DEFAULT) [address] [address] Monocytes/100 WBC (Bld) 4.6 % Normal [facility] Comment on above: Order Comment: Prior to first [facility] and then every 2 weeks.until results within normal limits. Collect weekly if baseline is abnormal. Performed By: #### L [id number] #### [facility] (DEFAULT) [address] [address] Nucleated RBC 0.0 /100 WBC Normal <=0.2 [facility] Comment on above: Order Comment: Prior to first [facility] and then every 2 weeks.until results within normal limits. Collect weekly if baseline is abnormal. Performed By: #### L [id number] #### [facility] (DEFAULT) [address] [address] Platelet mean volume (Bld) [Entitic vol] 9.8 fL Normal 8.5-12.2 [facility] Comment on above: Order Comment: Prior to first [facility] and then every 2 weeks.until results within normal limits. Collect weekly if baseline is abnormal. Performed By: #### L [id number] #### [facility] (DEFAULT) [address] [address] Platelets (Bld) [#/Vol] 389 10*3/uL Normal 150-393 [facility] Comment on above: Order Comment: Prior to first [facility] and then every 2 weeks.until results within normal limits. Collect weekly if baseline is abnormal. Performed By: #### L [id number] #### [facility] (DEFAULT) [address] [address] RBC (Bld) [#/Vol] 3.98 10*6/uL Normal 3.91-5.04 [facility] Comment on above: Order Comment: Prior to first [facility] and then every 2 weeks.until results within normal limits. Collect weekly if baseline is abnormal. Performed By: #### L [id number] #### [facility] (DEFAULT) [address] [address] RBC Distribution 14.8 % Normal 10.8-14.9 [facility] Comment on above: Order Comment: Prior to first [facility] and then every 2 weeks.until results within normal limits. Collect weekly if baseline is abnormal. Performed By: #### L [id number] #### [facility] (DEFAULT) [address] [address] Segs + Bands Auto 67.5 % Normal [facility] Comment on above: Order Comment: Prior to first [facility] and then every 2 weeks.until results within normal limits. Collect weekly if baseline is abnormal. Performed By: #### L [id number] #### [facility] (DEFAULT) [address] [address] Segs + Bands,Absolute Auto 6.07 K/uL Normal 1.64-7.28 [facility] Comment on above: Order Comment: Prior to first [facility] and then every 2 weeks.until results within normal limits. Collect weekly if baseline is abnormal. Performed By: #### L [id number] #### [facility] (DEFAULT) [address] [address] WBC (Bld) [#/Vol] 8.98 10*3/uL Normal 3.99-11.19 [facility] Comment on above: Order Comment: Prior to first [facility] and then every 2 weeks.until results within normal limits. Collect weekly if baseline is abnormal. Performed By: #### L [id number] #### [facility] (DEFAULT) [address] [address] CBC AND ELECTRONIC DIFFon Basophils (Bld) [#/Vol] 10*3/uL Normal 0.00-0.15 [facility] Comment on above: Order Comment: Prior to first [facility] and then every 2 weeks.until results within normal limits. Collect weekly if baseline is abnormal. Performed By: #### L [id number] #### [facility] (DEFAULT) [address] [address] Basophils/100 WBC (Bld) 0.3 % Normal [facility] Comment on above: Order Comment: Prior to first [facility] and then every 2 weeks.until results within normal limits. Collect weekly if baseline is abnormal. Performed By: #### L [id number] #### [facility] (DEFAULT) [address] [address] DIFF STATUS Electronic Differential Normal [facility] Comment on above: Order Comment: Prior to first [facility] and then every 2 weeks.until results within normal limits. Collect weekly if baseline is abnormal. Performed By: #### L AB980 #### [facility] (DEFAULT) [address] [address] Eosinophils (Bld) [#/Vol] 0.24 10*3/uL Normal 0.00-0.42 [facility] Comment on above: Order Comment: Prior to first [facility] and then every 2 weeks.until results within normal limits. Collect weekly if baseline is abnormal. Performed By: #### L [id number] #### [facility] (DEFAULT) [address] [address] Eosinophils/100 WBC (Bld) 2.4 % Normal [facility] Comment on above: Order Comment: Prior to first [facility] and then every 2 weeks.until results within normal limits. Collect weekly if baseline is abnormal. Performed By: #### L [id number] #### [facility] (DEFAULT) [address] [address] Hematocrit (Bld) [Volume fraction] 33.4 % Low 34.9-44.3 [facility] Comment on above: Order Comment: Prior to first [facility] and then every 2 weeks.until results within normal limits. Collect weekly if baseline is abnormal. Performed By: #### L [id number] #### [facility] (DEFAULT) [address] [address] Hemoglobin (Bld) [Mass/Vol] 10.3 g/dL Low 11.4-15.2 [facility] Comment on above: Order Comment: Prior to first [facility] and then every 2 weeks.until results within normal limits. Collect weekly if baseline is abnormal. Performed By: #### L [id number] #### [facility] (DEFAULT) [address] [address] Immature Grans % 0.2 % Normal [facility] Comment on above: Order Comment: Prior to first [facility] and then every 2 weeks.until results within normal limits. Collect weekly if baseline is abnormal. Performed By: #### L [id number] #### [facility] (DEFAULT) [address] [address] Immature Grans Absolute <0.04 Normal <=0.09 [facility] Comment on above: Order Comment: Prior to first [facility] and then every 2 weeks.until results within normal limits. Collect weekly if baseline is abnormal. Performed By: #### L AB980 #### [facility] (DEFAULT) [address] [address] Lymphocytes (Bld) [#/Vol] 2.87 10*3/uL Normal 1.16-3.51 [facility] Comment on above: Order Comment: Prior to first [facility] and then every 2 weeks.until results within normal limits. Collect weekly if baseline is abnormal. Performed By: #### L AB980 #### [facility] (DEFAULT) [address] [address] Lymphocytes/100 WBC (Bld) 29.1 % Normal [facility] Comment on above: Order Comment: Prior to first [facility] and then every 2 weeks.until results within normal limits. Collect weekly if baseline is abnormal. Performed By: #### L [id number] #### [facility] (DEFAULT) [address] [address] MCV (RBC) [Entitic vol] 85.2 fL Normal 79.6-97.7 [facility] Comment on above: Order Comment: Prior to first [facility] and then every 2 weeks.until results within normal limits. Collect weekly if baseline is abnormal. Performed By: #### L AB980 #### [facility] (DEFAULT) [address] [address] Mean Cell Hgb 26.3 pg Normal 25.9-33.9 [facility] Comment on above: Order Comment: Prior to first [facility] and then every 2 weeks.until results within normal limits. Collect weekly if baseline is abnormal. Performed By: #### L AB980 #### [facility] (DEFAULT) [address] [address] Mean Cell Hgb Conc 30.8 g/dL Low 31.4-35.9 [facility] Comment on above: Order Comment: Prior to first [facility] and then every 2 weeks.until results within normal limits. Collect weekly if baseline is abnormal. Performed By: #### L [id number] #### [facility] (DEFAULT) [address] [place] [address] Monocytes (Bld) [#/Vol] 0.37 10*3/uL Normal 0.22-0.87 [facility] Comment on above: Order Comment: Prior to first [facility] and then every 2 weeks.until results within normal limits. Collect weekly if baseline is abnormal. Performed By: #### L AB980 #### [facility] (DEFAULT) [address] [address] Monocytes/100 WBC (Bld) 3.7 % Normal [facility] Comment on above: Order Comment: Prior to first [facility] and then every 2 weeks.until results within normal limits. Collect weekly if baseline is abnormal. Performed By: #### L [id number] #### [facility] (DEFAULT) [address] [address] Nucleated RBC 0.0 /100 WBC Normal <=0.2 [facility] Comment on above: Order Comment: Prior to first [facility] and then every 2 weeks.until results within normal limits. Collect weekly if baseline is abnormal. Performed By: #### L [id number] #### [facility] (DEFAULT) [address] [address] Platelet mean volume (Bld) [Entitic vol] 9.9 fL Normal 8.5-12.2 [facility] Comment on above: Order Comment: Prior to first [facility] and then every 2 weeks.until results within normal limits. Collect weekly if baseline is abnormal. Performed By: #### L [id number] #### [facility] (DEFAULT) [address] [address] Platelets (Bld) [#/Vol] 346 10*3/uL Normal 150-393 [facility] Comment on above: Order Comment: Prior to first [facility] and then every 2 weeks.until results within normal limits. Collect weekly if baseline is abnormal. Performed By: #### L [id number] #### [facility] (DEFAULT) [address] [address] RBC (Bld) [#/Vol] 3.92 10*6/uL Normal 3.91-5.04 [facility] Comment on above: Order Comment: Prior to first [facility] and then every 2 weeks.until results within normal limits. Collect weekly if baseline is abnormal. Performed By: #### L [id number] #### [facility] ([facility] [address] [address] RBC Distribution 15.1 % High 10.8-14.9 [facility] Comment on above: Order Comment: Prior to first [facility] and then every 2 weeks.until results within normal limits. Collect weekly if baseline is abnormal. Performed By: #### L [id number] #### [facility] (DEFAULT) [address] [address] Segs + Bands Auto 64.3 % Normal [facility] Comment on above: Order Comment: Prior to first [facility] and then every 2 weeks.until results within normal limits. Collect weekly if baseline is abnormal. Performed By: #### L AB980 #### [facility] (DEFAULT) [address] [address] Segs + Bands,Absolute Auto 6.34 K/uL Normal 1.64-7.28 [facility] Comment on above: Order Comment: Prior to first [facility] and then every 2 weeks.until results within normal limits. Collect weekly if baseline is abnormal. Performed By: #### L [id number] #### [facility] (DEFAULT) [address] [address] WBC (Bld) [#/Vol] 9.87 10*3/uL Normal 3.99-11.19 [facility] Comment on above: Order Comment: Prior to first [facility] and then every 2 weeks.until results within normal limits. Collect weekly if baseline is abnormal. Performed By: #### L [id number] #### [facility] (DEFAULT) [address] [address] Comprehensive metabolic 2000 panelon 04-06-2021 High Sensitivity Troponin I 9 ng/L Normal <14 [facility] Comment on above: Performed By: #### 2 4321-2 #### [facility] [address] [place] [address] Glucose Auto test strip (Bld ) [Mass/Vol]on 04-06-2021 Glucose [Mass/Vol] 219 mg/dL High 70-99 [facility] Comment on above: Performed By: #### 2 4321-2 #### [facility] [address] [place] [address] Glucose [Mass/Vol] 245 mg/dL High 70-99 [facility] Comment on above: Performed By: #### 2 4321-2 #### [facility] [address] [place] [address] Glucose [Mass/Vol] 176 mg/dL High 70-99 [facility] Comment on above: Performed By: #### 2 4321-2 #### [facility] [address] [place] [address] Glucose [Mass/Vol] 217 mg/dL High 70-99 [facility] Comment on above: Performed By: #### 2 340-8 #### [facility] [address] [place] [address] HbA1c HPLC (Bld) [Mass fract ion]on 04-06-2021 HbA1c (Bld) [Mass fraction] 11.8 % High <=5.6 [facility] Comment on above: Result Comment: HbA1 c values of 5.7-6.4 percent indicate an increased risk for developing diabetes mellitus. HbA1c values greater than or equal to 6.5 percent are diagnostic of diabetes mellitus. For diagnosis of diabetes in individuals without unequivocal hyperglycemia, results should be confirmed by repeat testing. Performed By: #### 2 4321-2 #### [facility] [address] [place] [address] Mean Bld Glu Estim. 292 mg/dL Normal [facility] Comment on above: Performed By: #### 2 4321-2 #### [facility] [address] [place] [address] Hemogram and platelets WO di fferential panel (Bld)on 04-06-2021 Basophils (Bld) [#/Vol] 0.00 10*3/uL Normal 0.00-0.20 [facility] Comment on above: Performed By: #### 2 4317-0 #### [facility] [address] [place] [address] Basophils/100 WBC (Bld) 0.4 % Normal 0.0-2.0 [facility] Comment on above: Performed By: #### 2 4317-0 #### [facility] [address] [place] [address] Eosinophils (Bld) [#/Vol] 0.30 10*3/uL Normal 0.00-0.70 [facility] Comment on above: Performed By: #### 2 4317-0 #### [facility] [address] [place] [address] Eosinophils/100 WBC (Bld) 3.5 % Normal 0.0-7.0 [facility] Comment on above: Performed By: #### 2 4317-0 #### [facility] [address] [place] [address] Erythrocyte distribution width (RBC) [Ratio] 15.3 % High 11.0-14.8 [facility] Comment on above: Performed By: #### 2 4317-0 #### [facility] [address] [place] [address] Hematocrit (Bld) [Volume fraction] 32.4 % Low 35.0-45.0 [facility] Comment on above: Performed By: #### 2 4317-0 #### [facility] [address] [place] [address] Hemoglobin (Bld) [Mass/Vol] 10.8 g/dL Low 12.0-16.0 [facility] Comment on above: Performed By: #### 2 4317-0 #### [facility] [address] [place] [address] Lymphocytes (Bld) [#/Vol] 3.10 10*3/uL Normal 1.00-4.80 [facility] Comment on above: Performed By: #### 2 4317-0 #### [facility] [address] [place] [address] Lymphocytes/100 WBC (Bld) 39.3 % Normal 22.0-44.0 [facility] Comment on above: Performed By: #### 2 4317-0 #### [facility] [address] [place] [address] MCH 27.2 pcg Normal 27.0-34.0 [facility] Comment on above: Performed By: #### 2 4317-0 #### [facility] [address] [place] [address] MCHC (RBC) [Mass/Vol] 33.4 g/dL Normal 32.0-36.0 [facility] Comment on above: Performed By: #### 2 4317-0 #### [facility] [address] [place] [address] MCV (RBC) [Entitic vol] 81.4 fL Normal 80.0-97.0 [facility] Comment on above: Performed By: #### 2 4317-0 #### [facility] [address] [place] [address] Monocytes (Bld) [#/Vol] 0.50 10*3/uL Normal 0.00-0.90 [facility] Comment on above: Performed By: #### 2 4317-0 #### [facility] [address] [place] [address] Monocytes/100 WBC (Bld) 6.5 % Normal 0.0-12.0 M [facility] Comment on above: Performed By: #### 2 4317-0 #### [facility] [address] [place] [address] Neutrophils Absolute 4.00 K/mcL Normal 1.80-7.70 [facility] Comment on above: Performed By: #### 2 4317-0 #### [facility] [address] [place] [address] Neutrophils/100 WBC (Bld) 50.3 % Normal 40.0-70.0 [facility] Comment on above: Performed By: #### 2 4317-0 #### [facility] [address] [place] [address] Platelet mean volume (Bld) [Entitic vol] 6.6 fL Normal 6.2-12.1 [facility] Comment on above: Performed By: #### 2 4317-0 #### [facility] [address] [place] [address] Platelets (Bld) [#/Vol] 356 10*3/uL Normal 142-424 [facility] Comment on above: Performed By: #### 2 4317-0 #### [facility] [address] [place] [address] RBC (Bld) [#/Vol] 3.98 10*6/uL Normal 3.80-5.10 [facility] Comment on above: Performed By: #### 2 4317-0 #### [facility] [address] [place] [address] WBC (Bld) [#/Vol] 7.9 10*3/uL Normal 4.6-10.2 [facility] Comment on above: Performed By: #### 2 4317-0 #### [facility] [address] [place] [address] NM STRESS TEST WITH MYOCARDI AL PERFUSIONon [...] 71 109 78 161 85 1.0 67 18302.0 138 67 Normal [facility] Tropinin I.cardiac panel Hig h sensitivity methodon 04-06-2021 High Sensitivity Troponin I 9 ng/L Normal <14 [facility] Comment on above: Performed By: #### 8 9577-1 #### [facility] [address] [place] [address] Basic metabolic 2000 panelon 04-05-2021 High Sensitivity Troponin I 6 ng/L Normal <14 [facility] [facility] Comment on above: Performed By: #### 2 4321-2 #### [facility] [address] [place] [address] Hemogram and platelets WO di fferential panel (Bld)on 04-05-2021 Basophils (Bld) [#/Vol] 0.00 10*3/uL Normal 0.00-0.20 [facility] Comment on above: Performed By: #### 2 4317-0 #### [facility] [address] [place] [address] Basophils/100 WBC (Bld) 0.5 % Normal 0.0-2.0 [facility] Comment on above: Performed By: #### 2 4317-0 #### [facility] [address] [place] [address] Eosinophils (Bld) [#/Vol] 0.20 10*3/uL Normal 0.00-0.70 [facility] Comment on above: Performed By: #### 2 4317-0 #### [facility] [address] [place] [address] Eosinophils/100 WBC (Bld) 2.1 % Normal 0.0-7.0 [facility] Comment on above: Performed By: #### 2 4317-0 #### [facility] [address] [place] [address] Erythrocyte distribution width (RBC) [Ratio] 15.4 % High 11.0-14.8 [facility] Comment on above: Performed By: #### 2 4317-0 #### [facility] [address] [place] [address] Hematocrit (Bld) [Volume fraction] 33.6 % Low 35.0-45.0 [facility] Comment on above: Performed By: #### 2 4317-0 #### [facility] [address] [place] [address] Hemoglobin (Bld) [Mass/Vol] 11.1 g/dL Low 12.0-16.0 [facility] Comment on above: Performed By: #### 2 4317-0 #### [facility] [address] [place] [address] Lymphocytes (Bld) [#/Vol] 2.80 10*3/uL Normal 1.00-4.80 [facility] Comment on above: Performed By: #### 2 4317-0 #### [facility] [address] [place] [address] Lymphocytes/100 WBC (Bld) 28.2 % Normal 22.0-44.0 [facility] Comment on above: Performed By: #### 2 4317-0 #### [facility] [address] [place] [address] MCH 27.7 pcg Normal 27.0-34.0 [facility] Comment on above: Performed By: #### 2 4317-0 #### [facility] [address] [place] [address] MCHC (RBC) [Mass/Vol] 33.2 g/dL Normal 32.0-36.0 [facility] Comment on above: Performed By: #### 2 4317-0 #### [facility] [address] [place] [address] MCV (RBC) [Entitic vol] 83.2 fL Normal 80.0-97.0 M [facility] Comment on above: Performed By: #### 2 4317-0 #### [facility] [address] [place] [address] Monocytes (Bld) [#/Vol] 0.50 10*3/uL Normal 0.00-0.90 [facility] Comment on above: Performed By: #### 2 4317-0 #### [facility] [address] [place] [address] Monocytes/100 WBC (Bld) 5.2 % Normal 0.0-12.0 M [facility] Comment on above: Performed By: #### 2 4317-0 #### [facility] [address] [place] [address] Neutrophils Absolute 6.30 K/mcL Normal 1.80-7.70 [facility] Comment on above: Performed By: #### 2 4317-0 #### [facility] [address] [place] [address] Neutrophils/100 WBC (Bld) 64.0 % Normal 40.0-70.0 [facility] Comment on above: Performed By: #### 2 4317-0 #### [facility] [address] [place] [address] Platelet mean volume (Bld) [Entitic vol] 6.9 fL Normal 6.2-12.1 [facility] Comment on above: Performed By: #### 2 4317-0 #### [facility] [address] [place] [address] Platelets (Bld) [#/Vol] 386 10*3/uL Normal 142-424 [facility] Comment on above: Performed By: #### 2 4317-0 #### [facility] [address] [place] [address] RBC (Bld) [#/Vol] 4.03 10*6/uL Normal 3.80-5.10 [facility] Comment on above: Performed By: #### 2 4317-0 #### [facility] [address] [place] [address] WBC (Bld) [#/Vol] 9.8 10*3/uL Normal 4.6-10.2 [facility] Comment on above: Performed By: #### 2 4317-0 #### [facility] [address] [place] [address] Natriuretic peptide B [Mass/ Vol]on 04-05-2021 BNP 44 pcg/mL Normal 0-100 [facility] Comment on above: Result Comment: <100 : CHF is unlikely 100-400: Possible left ventricular dysfunction-unlikely acute decompensation >400: Suspicious for decompensated heart failure Performed By: #### 3 0934-4 #### [facility] [address] [place] [address] SARS-CoV-2 RNA Resp Ql CAL+p robeon 04-05-2021 SARS-CoV-2 (COVID-19) RNA CAL+probe Ql (Resp) Not detected Normal Not Detected [facility] Comment on above: Performed By: #### 9 4500-6 #### [facility] [address] [place] [address] TRANSTHORACIC ECHOCARDIOGRAM (TTE) COMPLETE (CONTRAST/BUBBLE/3D PRN)on 04-05-2021 [...] 36 27 1.1 30 10 1.68 Normal [facility] Tropinin I.cardiac panel Hig h sensitivity methodon 04-05-2021 High Sensitivity Troponin I 12 ng/L Normal <14 [facility] Comment on above: Performed By: #### 8 9577-1 #### [facility] [address] [place] [address] Urinalysis dipstick W Reflex Culture panel (U)on 04-05-2021 Bilirubin, Urine Negative Normal Negative [facility] Comment on above: Performed By: #### 5 7019-2 #### [facility] [address] [place] [address] Blood, Urine Negative Normal Negative [facility] Comment on above: Performed By: #### 5 7019-2 #### [facility] [address] [place] [address] Clarity (U) Clear Normal Clear [facility] Comment on above: Performed By: #### 5 7019-2 #### [facility] [address] [place] [address] Color (U) Straw Abnormal Yellow [facility] Comment on above: Performed By: #### 5 7019-2 #### [facility] [address] [place] [address] Glucose Ql (U) >=500 Abnormal Normal [facility] Comment on above: Performed By: #### 5 7019-2 #### [facility] [address] [place] [address] Ketones Ql (U) Negative Normal Negative [facility] Comment on above: Performed By: #### 5 7019-2 #### [facility] [address] [place] [address] Leukocytes, Urine Negative Normal Negative [facility] Comment on above: Performed By: #### 5 7019-2 #### [facility] [address] [place] [address] Nitrite, Urine Negative Normal Negative [facility] Comment on above: Performed By: #### 5 7019-2 #### [facility] [address] [place] [address] pH (U) 7.0 [pH] Normal 5.0-8.0 [facility] Comment on above: Performed By: #### 5 7019-2 #### [facility] [address] [place] [address] Protein, Urine Negative Normal Negative [facility] Comment on above: Performed By: #### 5 7019-2 #### [facility] [address] [place] [address] Specific [place] Urine 1.014 Normal 1.002-1.030 [facility] Comment on above: Performed By: #### 5 7019-2 #### [facility] [address] [place] [address] Urobilinogen, Urine Normal Normal Normal [facility] Comment on above: Performed By: #### 5 7019-2 #### [facility] [address] [place] [address] XR CHEST 1 VIEWon 04-05-2021 XR CHEST [...] Self Edit Transcribed Date: 04/05/2021 14:59 Normal [facility] XR HAND LEFT 3+ VIEWSon XR HAND [...] third and fourth fingers. Normal [facility] CBC(NO DIFF)on 03-15-2021 Erythrocyte distribution width (RBC) [Ratio] 15.2 % High 11.5-14.5 [facility] Comment on above: Performed By: #### H EMOG, CMPF, LIP2, RTSH, T42 #### Testing performed at [address] [address] Hematocrit (Bld) [Volume fraction] 34.3 % Low 36.0-48.0 [facility] Comment on above: Performed By: #### H EMOG, CMPF, LIP2, RTSH, T42 #### Testing performed at [address] [address] Hemoglobin (Bld) [Mass/Vol] 11.1 g/dL Low 12.0-16.0 [facility] Comment on above: Performed By: #### H EMOG, CMPF, LIP2, RTSH, T42 #### Testing performed at [address] [address] MCH (RBC) [Entitic mass] 27.0 pg Normal 26.0-35.0 [facility] Comment on above: Performed By: #### H EMOG, CMPF, LIP2, RTSH, T42 #### Testing performed at [place] [id number] MCHC (RBC) [Mass/Vol] 32.4 g/dL Normal 27.0-37.0 [facility] Comment on above: Performed By: #### H EMOG, CMPF, LIP2, RTSH, T42 #### Testing performed at [place] [id number] MCV (RBC) [Entitic vol] 83.4 fL Normal 80.0-100.0 [facility] Comment on above: Performed By: #### H EMOG, CMPF, LIP2, RTSH, T42 #### [place] [address] Platelet mean volume (Bld) [Entitic vol] 7.1 fL Low 7.4-11.0 [facility] Comment on above: Result Comment: Test ing performed at [place] [address] Performed By: #### H EMOG, CMPF, LIP2, RTSH, T42 #### Testing performed at [place] [id number] Platelets (Bld) [#/Vol] 339 10*3/uL Normal 130.0-400.0 [facility] Comment on above: Performed By: #### H EMOG, CMPF, LIP2, RTSH, T42 #### Testing performed at [place] [id number] RBC (Bld) [#/Vol] 4.11 10*6/uL Normal 4.0-5.4 [facility] Comment on above: Performed By: #### H EMOG, CMPF, LIP2, RTSH, T42 #### Testing performed at [place] [id number] WBC (Bld) [#/Vol] 6.8 10*3/uL Normal 3.6-11.0 [facility] Comment on above: Performed By: #### H EMOG, CMPF, LIP2, RTSH, T42 #### Testing performed at [place] [id number] CMP FASTINGon 03-15-2021 A:G RATIO 1.1 RATIO Low 1.3-2.2 [facility] Comment on above: Performed By: #### H EMOG, CMPF, LIP2, RTSH, T42 #### Testing performed at [place] [id number] ALBUMIN 3.9 G/dl Normal 3.5-5.0 [facility] Comment on above: Performed By: #### H EMOG, CMPF, LIP2, RTSH, T42 #### Testing performed at [place] [id number] ALP [Catalytic activity/Vol] 113 U/L Normal 38-126 [facility] Comment on above: Performed By: #### H EMOG, CMPF, LIP2, RTSH, T42 #### Testing performed at [place] [id number] ALT [Catalytic activity/Vol] 14 U/L Normal <35 [facility] Comment on above: Performed By: #### H EMOG, CMPF, LIP2, RTSH, T42 #### Testing performed at [place] [id number] AST [Catalytic activity/Vol] 19 U/L Normal 14-36 [facility] Comment on above: Performed By: #### H EMOG, CMPF, LIP2, RTSH, T42 #### Testing performed at [address] [address] Bilirubin [Mass/Vol] 0.4 mg/dL Normal 0.2-1.3 [facility] Comment on above: Performed By: #### H EMOG, CMPF, LIP2, RTSH, T42 #### Testing performed at [place] [id number] Calcium [Mass/Vol] 9.6 mg/dL Normal 8.4-10.2 [facility] Comment on above: Performed By: #### H EMOG, CMPF, LIP2, RTSH, T42 #### [place] [address] Chloride [Moles/Vol] 105 mmol/L Normal 98-107 [facility] Comment on above: Result Comment: Vasyl hickman note: Triglyceride levels of 600mg/dL or higher may positively bias chloride results by approximately 2.1 mmol Performed By: #### H EMOG, CMPF, LIP2, RTSH, T42 #### [place] [address] CO2 [Moles/Vol] 24 mmol/L Normal 22-30 [facility] Comment on above: Performed By: #### H EMOG, CMPF, LIP2, RTSH, T42 #### [place] [address] Creatinine [Mass/Vol] 1.20 mg/dL Normal 0.7-1.2 [facility] Comment on above: Performed By: #### H EMOG, CMPF, LIP2, RTSH, T42 #### [place] [address] EST. GFR, 59 ml/min/1.73sq.m [facility] Comment on above: Performed By: #### H EMOG, CMPF, LIP2, RTSH, T42 #### [place] [address] EST. GFR,Non 49 ml/min/1.73sq.m [facility] Comment on above: Performed By: #### H EMOG, CMPF, LIP2, RTSH, T42 #### [place] [address] GFR Information Average GFR for 50-5 9 years old = 93. 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 Kidney failure, GFR = <15. The GFR estimate is not adjusted for extreme body surface area or acute process, nor has it been validated for women or ethnic groups other than and . Testing performed at [place] [address] Performed By: #### H EMOG, CMPF, LIP2, RTSH, T42 #### [place] [address] Glucose [Mass/Vol] 222 mg/dL High 70-100 [facility] Comment on above: Result Comment: NORMAL <100 mg/dL PREDIABETES 101-126 mg/dL DIABETES 126 mg/dL or higher Performed By: #### H EMOG, CMPF, LIP2, RTSH, T42 #### [place] [address] Potassium [Moles/Vol] 4.5 mmol/L Normal 3.5-5.1 [facility] Comment on above: Performed By: #### H EMOG, CMPF, LIP2, RTSH, T42 #### Testing performed at [place] [id number] Protein [Mass/Vol] 7.3 g/dL Normal 6.3-8.2 [facility] Comment on above: Performed By: #### H EMOG, CMPF, LIP2, RTSH, T42 #### Testing performed at [place] [id number] Sodium [Moles/Vol] 139 mmol/L Normal 137-145 [facility] Comment on above: Performed By: #### H EMOG, CMPF, LIP2, RTSH, T42 #### Testing performed at [place] [id number] Urea nitrogen [Mass/Vol] 26 mg/dL High 7-20 [facility] Comment on above: Performed By: #### H EMOG, CMPF, LIP2, RTSH, T42 #### Testing performed at [place] [id number] FREE T4on 03-15-2021 Free T4 [Mass/Vol] 1.07 ng/dL Normal 0.78-2.19 [facility] Comment on above: Result Comment: Test ing performed at [place], [place] [address] Performed By: #### H EMOG, CMPF, LIP2, RTSH, T42 #### Testing performed at [address] [address] HEMOGLOBIN A1Con 03-15-2021 Glucose [Mass/Vol] 289 mg/dL Normal [facility] HbA1c (Bld) [Mass fraction] 11.7 % High 0-6 [facility] Comment on above: Result Comment: NORMAL <5.7% PREDIABETES 5.7-6.4% DIABETES 6.5% OR HIGHER LIPID PROFILEon 03-15-2021 Cholesterol [Mass/Vol] 226 mg/dL High 107-[address] [facility] Comment on above: Performed By: #### H EMOG, CMPF, LIP2, RTSH, T42 #### Testing performed at [address] [address] Cholesterol in HDL [Mass/Vol] 48 mg/dL Normal 33-75 [facility] Comment on above: Performed By: #### H EMOG, CMPF, LIP2, RTSH, T42 #### Testing performed at [address] [address] Cholesterol in LDL [Mass/Vol] 143 mg/dL Normal [facility] Comment on above: Performed By: #### H EMOG, CMPF, LIP2, RTSH, T42 #### Testing performed at [address] [address] Cholesterol in VLDL [Mass/Vol] 35 mg/dL High 5.0-25 [facility] Comment on above: Performed By: #### H EMOG, CMPF, LIP2, RTSH, T42 #### Testing performed at [address] [address] Cholesterol.total/Erika sterol in HDL [Mass ratio] 4.71 {ratio} Normal [facility] Comment on above: Result Comment: RISK TOTAL/HDL RATIO MEN WOMEN 1/2 AVERAGE 3.43 3.27 AVERAGE 4.97 4.44 2X AVERAGE 9.55 7.05 3X AVERAGE 23.99 11.04 Testing performed at [place] [address] Performed By: #### H EMOG, CMPF, LIP2, RTSH, T42 #### [place] [address] Triglyceride [Mass/Vol] 174 mg/dL High 0-150 [facility] Comment on above: Performed By: #### H EMOG, CMPF, LIP2, RTSH, T42 #### [place] [address] MALB/CREAT RATIO,URINEon MALB/CREAT RATIO,URINE 126.2 mg MALB/g CREAT High 1. 3-30.0 [facility] Comment on above: Result Comment: Test ing performed at [place] [address] Performed By: #### M CRAT #### [place] [address] MICROALBUMIN,RANDOM URINE 133.1 mg/L High 0-16.7 [facility] Comment on above: Performed By: #### M CRAT #### [place] [address] URINE CREATININE RANDOM 105.5 MG/DL Normal [facility] Comment on above: Result Comment: NO N ORMAL VALUES ESTABLISHED FOR RANDOM SPECIMENS Performed By: #### M CRAT #### [place] [address] TSH,REFLEX FREE T4on 022 TSH,REFLEX FREE T4 7.180 uIU/ML High 0.46-4.68 [facility] Comment on above: Result Comment: Test ing performed at [place] [address] Performed By: #### H EMOG, CMPF, LIP2, RTSH, T42 #### [place] [address] BUN CREAon 03-07-2021 Creatinine [Mass/Vol] 1.16 mg/dL Normal 0.50-1.[address] [facility] Comment on above: Order Comment: Prior to first [facility] and every 2 weeks if baseline CR is within normal limits. Performed By: #### B CR #### [facility] (DEFAULT) [address] [address] EST GFR, 58 mL/min/1.73sqM Low >=60 [facility] Comment on above: Order Comment: Prior to first [facility] and every 2 weeks if baseline CR is within normal limits. Performed By: #### B CR #### [facility] (DEFAULT) [address] [address] EST GFR,Non 48 mL/min/1.73sqM Low >=60 [facility] Comment on above: Order Comment: Prior to first [facility] and every 2 weeks if baseline CR is within normal limits. Performed By: #### B CR #### [facility] (DEFAULT) [address] [address] Urea nitrogen [Mass/Vol] 19 mg/dL Normal 7-25 [facility] Comment on above: Order Comment: Prior to first [facility] and every 2 weeks if baseline CR is within normal limits. Performed By: #### B CR #### [facility] (DEFAULT) [address] [address] Urea nitrogen/Creatinine [Mass ratio] 16 mg/mg Normal [facility] Comment on above: Order Comment: Prior to first [facility] and every 2 weeks if baseline CR is within normal limits. Performed By: #### B CR #### [facility] (DEFAULT) [address] [address] CBC AND ELECTRONIC DIFFon Basophils (Bld) [#/Vol] 10*3/uL Normal 0.00-0.15 [facility] Comment on above: Order Comment: Prior to first [facility] and every 2 weeks if baseline CR is within normal limits. Performed By: #### B CR #### [facility] (DEFAULT) [address] [address] Basophils/100 WBC (Bld) 0.2 % Normal [facility] Comment on above: Order Comment: Prior to first [facility] and every 2 weeks if baseline CR is within normal limits. Performed By: #### B CR #### [facility] (DEFAULT) [address] [address] DIFF STATUS Electronic Differential Normal [facility] Comment on above: Order Comment: Prior to first [facility] and every 2 weeks if baseline CR is within normal limits. Performed By: #### B CR #### [facility] (DEFAULT) [address] [address] Eosinophils (Bld) [#/Vol] 0.21 10*3/uL Normal 0.00-0.42 [facility] Comment on above: Order Comment: Prior to first [facility] and every 2 weeks if baseline CR is within normal limits. Performed By: #### B CR #### [facility] (DEFAULT) [address] [address] Eosinophils/100 WBC (Bld) 2.3 % Normal [facility] Comment on above: Order Comment: Prior to first [employer] and every 2 weeks if baseline CR is within normal limits. Performed By: #### B CR #### [facility] (DEFAULT) [address] [address] Hematocrit (Bld) [Volume fraction] 32.6 % Low 34.9-44.3 [facility] Comment on above: Order Comment: Prior to first [facility] and every 2 weeks if baseline CR is within normal limits. Performed By: #### B CR #### [facility] (DEFAULT) [address] [address] Hemoglobin (Bld) [Mass/Vol] 10.2 g/dL Low 11.4-15.2 [facility] Comment on above: Order Comment: Prior to first [facility] and every 2 weeks if baseline CR is within normal limits. Performed By: #### B CR #### [facility] (DEFAULT) [address] [address] Immature Grans % 0.2 % Normal [facility] Comment on above: Order Comment: Prior to first [facility] and every 2 weeks if baseline CR is within normal limits. Performed By: #### B CR #### [facility] (DEFAULT) [address] [address] Immature Grans Absolute <0.04 Normal <=0.09 [facility] Comment on above: Order Comment: Prior to first [facility] and every 2 weeks if baseline CR is within normal limits. Performed By: #### B CR #### [facility] (DEFAULT) [address] [address] Lymphocytes (Bld) [#/Vol] 2.26 10*3/uL Normal 1.16-3.51 [facility] Comment on above: Order Comment: Prior to first [facility] and every 2 weeks if baseline CR is within normal limits. Performed By: #### B CR #### [facility] (DEFAULT) [address] [address] Lymphocytes/100 WBC (Bld) 25.3 % Normal [facility] Comment on above: Order Comment: Prior to first [facility] and every 2 weeks if baseline CR is within normal limits. Performed By: #### B CR #### [facility] (DEFAULT) [address] [address] MCV (RBC) [Entitic vol] 86.2 fL Normal 79.6-97.7 [facility] Comment on above: Order Comment: Prior to first [facility] and every 2 weeks if baseline CR is within normal limits. Performed By: #### B CR #### [facility] (DEFAULT) [address] [address] Mean Cell Hgb 27.0 pg Normal 25.9-33.9 [facility] Comment on above: Order Comment: Prior to first [facility] and every 2 weeks if baseline CR is within normal limits. Performed By: #### B CR #### [facility] (DEFAULT) [address] [address] Mean Cell Hgb Conc 31.3 g/dL Low 31.4-35.9 [facility] Comment on above: Order Comment: Prior to first [employer] [facility] and every 2 weeks if baseline CR is within normal limits. Performed By: #### B CR #### [facility] (DEFAULT) [address] [place] [address] Monocytes (Bld) [#/Vol] 0.44 10*3/uL Normal 0.22-0.87 [facility] Comment on above: Order Comment: Prior to first [employer] [facility] and every 2 weeks if baseline CR is within normal limits. Performed By: #### B CR #### [facility] [facility] [address] [address] Monocytes/100 WBC (Bld) 4.9 % Normal [facility] Comment on above: Order Comment: Prior to first [facility] and every 2 weeks if baseline CR is within normal limits. Performed By: #### B CR #### [facility] (DEFAULT) [address] [address] Nucleated RBC 0.0 /100 WBC Normal <=0.2 [facility] Comment on above: Order Comment: Prior to first [facility] Infusion and every 2 weeks if baseline CR is within normal limits. Performed By: #### B CR #### [facility] (DEFAULT) [address] [address] Platelet mean volume (Bld) [Entitic vol] 9.7 fL Normal 8.5-12.2 [facility] Comment on above: Order Comment: Prior to first [facility] Infusion and every 2 weeks if baseline CR is within normal limits. Performed By: #### B CR #### [facility] (DEFAULT) [address] [address] Platelets (Bld) [#/Vol] 350 10*3/uL Normal 150-393 [facility] Comment on above: Order Comment: Prior to first [facility] Infusion and every 2 weeks if baseline CR is within normal limits. Performed By: #### B CR #### [facility] (DEFAULT) [address] [address] RBC (Bld) [#/Vol] 3.78 10*6/uL Low 3.91-5.04 [facility] Comment on above: Order Comment: Prior to first [facility] Infusion and every 2 weeks if baseline CR is within normal limits. Performed By: #### B CR #### [facility] (DEFAULT) [address] [address] RBC Distribution 14.6 % Normal 10.8-14.9 [facility] Comment on above: Order Comment: Prior to first [facility] Infusion and every 2 weeks if baseline CR is within normal limits. Performed By: #### B CR #### [facility] (DEFAULT) [address] [address] Segs + Bands Auto 67.1 % Normal [facility] Comment on above: Order Comment: Prior to first [facility] Infusion and every 2 weeks if baseline CR is within normal limits. Performed By: #### B CR #### [facility] (DEFAULT) [address] [address] Segs + Bands,Absolute Auto 5.99 K/uL Normal 1.64-7.28 [facility] Comment on above: Order Comment: Prior to first [facility] Infusion and every 2 weeks if baseline CR is within normal limits. Performed By: #### B CR #### [facility] (DEFAULT) [address] [address] WBC (Bld) [#/Vol] 8.94 10*3/uL Normal 3.99-11.19 [facility] Comment on above: Order Comment: Prior to first [facility] Infusion and every 2 weeks if baseline CR is within normal limits. Performed By: #### B CR #### [facility] (DEFAULT) [address] [address] BUN CREAon 02-21-2021 Creatinine [Mass/Vol] 1.19 mg/dL Normal 0.50-1.[address] [facility] Comment on above: Order Comment: Prior to first [facility] Infusion and every 2 weeks if baseline CR is within normal limits. Performed By: #### B CR #### [facility] (DEFAULT) [address] [address] EST GFR, 56 mL/min/1.73sqM Low >=60 [facility] Comment on above: Order Comment: Prior to first [facility] Infusion and every 2 weeks if baseline CR is within normal limits. Performed By: #### B CR #### [facility] (DEFAULT) [address] [address] EST GFR,Non 47 mL/min/1.73sqM Low >=60 [facility] Comment on above: Order Comment: Prior to first [facility] Infusion and every 2 weeks if baseline CR is within normal limits. Performed By: #### B CR #### [facility] (DEFAULT) [address] [address] Urea nitrogen [Mass/Vol] 28 mg/dL High 7-25 [facility] Comment on above: Order Comment: Prior to first [facility] Infusion and every 2 weeks if baseline CR is within normal limits. Performed By: #### B CR #### [facility] (DEFAULT) [address] [address] Urea nitrogen/Creatinine [Mass ratio] 24 mg/mg Normal [facility] Comment on above: Order Comment: Prior to first [facility] Infusion and every 2 weeks if baseline CR is within normal limits. Performed By: #### B CR #### [facility] (DEFAULT) [address] [address] CBC AND ELECTRONIC DIFFon Basophils (Bld) [#/Vol] 0.05 10*3/uL Normal 0.00-0.15 [facility] Comment on above: Order Comment: Prior to first [facility] Infusion and every 2 weeks if baseline CR is within normal limits. Performed By: #### B CR #### [facility] (DEFAULT) [address] [place] [address] Basophils/100 WBC (Bld) 0.6 % Normal [facility] Comment on above: Order Comment: Prior to first [facility] Infusion and every 2 weeks if baseline CR is within normal limits. Performed By: #### B CR #### [facility] (DEFAULT) [address] [place] [address] DIFF STATUS Electronic Differential Normal [facility] Comment on above: Order Comment: Prior to first [facility] Infusion and every 2 weeks if baseline CR is within normal limits. Performed By: #### B CR #### [facility] (DEFAULT) [address] [place] [address] Eosinophils (Bld) [#/Vol] 0.16 10*3/uL Normal 0.00-0.42 [facility] Comment on above: Order Comment: Prior to first [facility] Infusion and every 2 weeks if baseline CR is within normal limits. Performed By: #### B CR #### [facility] (DEFAULT) [address] [address] Eosinophils/100 WBC (Bld) 1.8 % Normal [facility] Comment on above: Order Comment: Prior to first [facility] Infusion and every 2 weeks if baseline CR is within normal limits. Performed By: #### B CR #### [facility] (DEFAULT) [address] [place] [address] Hematocrit (Bld) [Volume fraction] 34.7 % Low 34.9-44.3 [facility] Comment on above: Order Comment: Prior to first [facility] Infusion and every 2 weeks if baseline CR is within normal limits. Performed By: #### B CR #### [facility] (DEFAULT) [address] [address] Hemoglobin (Bld) [Mass/Vol] 11.0 g/dL Low 11.4-15.2 [facility] Comment on above: Order Comment: Prior to first [facility] Infusion and every 2 weeks if baseline CR is within normal limits. Performed By: #### B CR #### [facility] (DEFAULT) [address] [address] Immature Grans % 0.1 % Normal [facility] Comment on above: Order Comment: Prior to first [facility] Infusion and every 2 weeks if baseline CR is within normal limits. Performed By: #### B CR #### [facility] (DEFAULT) [address] [address] Immature Grans Absolute <0.04 Normal <=0.09 [facility] Comment on above: Order Comment: Prior to first [facility] Infusion and every 2 weeks if baseline CR is within normal limits. Performed By: #### B CR #### [facility] (DEFAULT) [address] [address] Lymphocytes (Bld) [#/Vol] 2.61 10*3/uL Normal 1.16-3.51 [facility] Comment on above: Order Comment: Prior to first [facility] Infusion and every 2 weeks if baseline CR is within normal limits. Performed By: #### B CR #### [facility] (DEFAULT) [address] [address] Lymphocytes/100 WBC (Bld) 29.4 % Normal [facility] Comment on above: Order Comment: Prior to first [facility] Infusion and every 2 weeks if baseline CR is within normal limits. Performed By: #### B CR #### [facility] (DEFAULT) [address] [address] MCV (RBC) [Entitic vol] 85.5 fL Normal 79.6-97.7 [facility] Comment on above: Order Comment: Prior to first [facility] Infusion and every 2 weeks if baseline CR is within normal limits. Performed By: #### B CR #### [facility] (DEFAULT) [address] [address] Mean Cell Hgb 27.1 pg Normal 25.9-33.9 [facility] Comment on above: Order Comment: Prior to first [facility] Infusion and every 2 weeks if baseline CR is within normal limits. Performed By: #### B CR #### [facility] (DEFAULT) [address] [address] Mean Cell Hgb Conc 31.7 g/dL Normal 31.4-35.9 [facility] Comment on above: Order Comment: Prior to first [facility] Infusion and every 2 weeks if baseline CR is within normal limits. Performed By: #### B CR #### [facility] (DEFAULT) [address] [place] [address] Monocytes (Bld) [#/Vol] 0.39 10*3/uL Normal 0.22-0.87 [facility] Comment on above: Order Comment: Prior to first [facility] Infusion and every 2 weeks if baseline CR is within normal limits. Performed By: #### B CR #### [facility] (DEFAULT) [address] [address] Monocytes/100 WBC (Bld) 4.4 % Normal [facility] Comment on above: Order Comment: Prior to first [facility] Infusion and every 2 weeks if baseline CR is within normal limits. Performed By: #### B CR #### [facility] (DEFAULT) [address] [place] [address] Nucleated RBC 0.0 /100 WBC Normal <=0.2 [facility] Comment on above: Order Comment: Prior to first [facility] Infusion and every 2 weeks if baseline CR is within normal limits. Performed By: #### B CR #### [facility] (DEFAULT) [address] [place] [address] Platelet mean volume (Bld) [Entitic vol] 9.7 fL Normal 8.5-12.2 [facility] Comment on above: Order Comment: Prior to first [facility] Infusion and every 2 weeks if baseline CR is within normal limits. Performed By: #### B CR #### [facility] (DEFAULT) [address] [place] [address] Platelets (Bld) [#/Vol] 383 10*3/uL Normal 150-393 [facility] Comment on above: Order Comment: Prior to first [facility] Infusion and every 2 weeks if baseline CR is within normal limits. Performed By: #### B CR #### [facility] (DEFAULT) [address] [place] [address] RBC (Bld) [#/Vol] 4.06 10*6/uL Normal 3.91-5.04 [facility] Comment on above: Order Comment: Prior to first [facility] Infusion and every 2 weeks if baseline CR is within normal limits. Performed By: #### B CR #### [facility] (DEFAULT) [address] [place] [address] RBC Distribution 14.5 % Normal 10.8-14.9 [facility] Comment on above: Order Comment: Prior to first [facility] Infusion and every 2 weeks if baseline CR is within normal limits. Performed By: #### B CR #### [facility] (DEFAULT) [address] [place] [address] Segs + Bands Auto 63.7 % Normal [facility] Comment on above: Order Comment: Prior to first [facility] Infusion and every 2 weeks if baseline CR is within normal limits. Performed By: #### B CR #### [facility] (DEFAULT) [address] [address] Segs + Bands,Absolute Auto 5.66 K/uL Normal 1.64-7.28 [facility] Comment on above: Order Comment: Prior to first [facility] Infusion and every 2 weeks if baseline CR is within normal limits. Performed By: #### B CR #### [facility] (DEFAULT) [address] [place] [address] WBC (Bld) [#/Vol] 8.88 10*3/uL Normal 3.99-11.19 [facility] Comment on above: Order Comment: Prior to first [facility] Infusion and every 2 weeks if baseline CR is within normal limits. Performed By: #### B CR #### [facility] (DEFAULT) [address] [address] OCT/HRT [place] OUon 02-15-20 OCT/HRT [place] OU Right Eye Quality was good. Findings include subretinal fluid. Interval change is better. Recommendation for management is to continue treatment. Left Eye Quality was good. Findings include subretinal fluid. Interval change is better. Recommendation for management is to continue treatment. Normal [facility] BUN CREAon 02-07-2021 Creatinine [Mass/Vol] 1.20 mg/dL Normal 0.50-1.[address] [facility] Comment on above: Order Comment: Prior to first [facility] Infusion and every 2 weeks if baseline CR is within normal limits. Performed By: #### B CR #### [facility] (DEFAULT) [address] [address] EST GFR, 56 mL/min/1.73sqM Low >=60 [facility] Comment on above: Order Comment: Prior to first [facility] Infusion and every 2 weeks if baseline CR is within normal limits. Performed By: #### B CR #### [facility] (DEFAULT) [address] [address] EST GFR,Non 46 mL/min/1.73sqM Low >=60 [facility] Comment on above: Order Comment: Prior to first [facility] Infusion and every 2 weeks if baseline CR is within normal limits. Performed By: #### B CR #### [facility] (DEFAULT) [address] [place] [address] Urea nitrogen [Mass/Vol] 21 mg/dL Normal 09-07 [facility] Comment on above: Order Comment: Prior to first [facility] Infusion and every 2 weeks if baseline CR is within normal limits. Performed By: #### B CR #### [facility] (DEFAULT) [address] [address] Urea nitrogen/Creatinine [Mass ratio] 18 mg/mg Normal [facility] Comment on above: Order Comment: Prior to first [facility] Infusion and every 2 weeks if baseline CR is within normal limits. Performed By: #### B CR #### [facility] (DEFAULT) [address] [address] CBC AND ELECTRONIC DIFFon Basophils (Bld) [#/Vol] 0.05 10*3/uL Normal 0.00-0.15 [facility] Comment on above: Order Comment: Prior to first [facility] Infusion and then every 2 weeks.until results within normal limits. Collect weekly if baseline is abnormal. Performed By: #### L [id number] #### [facility] (DEFAULT) [address] [address] Basophils/100 WBC (Bld) 0.5 % Normal [facility] Comment on above: Order Comment: Prior to first [facility] Infusion and then every 2 weeks.until results within normal limits. Collect weekly if baseline is abnormal. Performed By: #### L [id number] #### [facility] (DEFAULT) [address] [address] DIFF STATUS Electronic Differential Normal [facility] Comment on above: Order Comment: Prior to first [facility] Infusion and then every 2 weeks.until results within normal limits. Collect weekly if baseline is abnormal. Performed By: #### L [id number] #### [facility] (DEFAULT) [address] [address] Eosinophils (Bld) [#/Vol] 0.31 10*3/uL Normal 0.00-0.42 [facility] Comment on above: Order Comment: Prior to first [facility] Infusion and then every 2 weeks.until results within normal limits. Collect weekly if baseline is abnormal. Performed By: #### L [id number] #### [facility] (DEFAULT) [address] [address] Eosinophils/100 WBC (Bld) 3.3 % Normal [facility] Comment on above: Order Comment: Prior to first [facility] Infusion and then every 2 weeks.until results within normal limits. Collect weekly if baseline is abnormal. Performed By: #### L [id number] #### [facility] (DEFAULT) [address] [address] Hematocrit (Bld) [Volume fraction] 33.5 % Low 34.9-44.3 [facility] Comment on above: Order Comment: Prior to first [facility] Infusion and then every 2 weeks.until results within normal limits. Collect weekly if baseline is abnormal. Performed By: #### L [id number] #### [facility] (DEFAULT) [address] [address] Hemoglobin (Bld) [Mass/Vol] 10.5 g/dL Low 11.4-15.2 [facility] Comment on above: Order Comment: Prior to first [facility] Infusion and then every 2 weeks.until results within normal limits. Collect weekly if baseline is abnormal. Performed By: #### L [id number] #### [facility] (DEFAULT) [address] [address] Immature Grans % 0.2 % Normal [facility] Comment on above: Order Comment: Prior to first [facility] Infusion and then every 2 weeks.until results within normal limits. Collect weekly if baseline is abnormal. Performed By: #### L [id number] #### [facility] (DEFAULT) [address] [place] [address] Immature Grans Absolute <0.04 Normal <=0.09 [facility] Comment on above: Order Comment: Prior to first [facility] Infusion and then every 2 weeks.until results within normal limits. Collect weekly if baseline is abnormal. Performed By: #### L [id number] #### [facility] (DEFAULT) [address] [address] Lymphocytes (Bld) [#/Vol] 2.84 10*3/uL Normal 1.16-3.51 [facility] Comment on above: Order Comment: Prior to first [facility] Infusion and then every 2 weeks.until results within normal limits. Collect weekly if baseline is abnormal. Performed By: #### L [id number] #### [facility] (DEFAULT) [address] [address] Lymphocytes/100 WBC (Bld) 30.6 % Normal [facility] Comment on above: Order Comment: Prior to first [facility] Infusion and then every 2 weeks.until results within normal limits. Collect weekly if baseline is abnormal. Performed By: #### L [id number] #### [facility] (DEFAULT) [address] [address] MCV (RBC) [Entitic vol] 85.7 fL Normal 79.6-97.7 [facility] Comment on above: Order Comment: Prior to first [facility] Infusion and then every 2 weeks.until results within normal limits. Collect weekly if baseline is abnormal. Performed By: #### L [id number] #### [facility] (DEFAULT) [address] [address] Mean Cell Hgb 26.9 pg Normal 25.9-33.9 [facility] Comment on above: Order Comment: Prior to first [facility] Infusion and then every 2 weeks.until results within normal limits. Collect weekly if baseline is abnormal. Performed By: #### L [id number] #### [facility] (DEFAULT) [address] [address] Mean Cell Hgb Conc 31.3 g/dL Low 31.4-35.9 [facility] Comment on above: Order Comment: Prior to first [facility] Infusion and then every 2 weeks.until results within normal limits. Collect weekly if baseline is abnormal. Performed By: #### L [id number] #### [facility] (DEFAULT) [address] [address] Monocytes (Bld) [#/Vol] 0.42 10*3/uL Normal 0.22-0.87 [facility] Comment on above: Order Comment: Prior to first [facility] Infusion and then every 2 weeks.until results within normal limits. Collect weekly if baseline is abnormal. Performed By: #### L [id number] #### [facility] (DEFAULT) [address] [address] Monocytes/100 WBC (Bld) 4.5 % Normal [facility] Comment on above: Order Comment: Prior to first [facility] Infusion and then every 2 weeks.until results within normal limits. Collect weekly if baseline is abnormal. Performed By: #### L [id number] #### [facility] (DEFAULT) [address] [address] Nucleated RBC 0.0 /100 WBC Normal <=0.2 [facility] Comment on above: Order Comment: Prior to first [facility] Infusion and then every 2 weeks.until results within normal limits. Collect weekly if baseline is abnormal. Performed By: #### L [id number] #### [facility] (DEFAULT) [address] [address] Platelet mean volume (Bld) [Entitic vol] 9.3 fL Normal 8.5-12.2 [facility] Comment on above: Order Comment: Prior to first [facility] Infusion and then every 2 weeks.until results within normal limits. Collect weekly if baseline is abnormal. Performed By: #### L [id number] #### [facility] (DEFAULT) [address] [address] Platelets (Bld) [#/Vol] 398 10*3/uL High 150-393 [facility] Comment on above: Order Comment: Prior to first [facility] Infusion and then every 2 weeks.until results within normal limits. Collect weekly if baseline is abnormal. Performed By: #### L [id number] #### [facility] (DEFAULT) [address] [address] RBC (Bld) [#/Vol] 3.91 10*6/uL Normal 3.91-5.04 [facility] Comment on above: Order Comment: Prior to first [facility] Infusion and then every 2 weeks.until results within normal limits. Collect weekly if baseline is abnormal. Performed By: #### L [id number] #### [facility] (DEFAULT) [address] [address] RBC Distribution 14.5 % Normal 10.8-14.9 [facility] Comment on above: Order Comment: Prior to first [facility] Infusion and then every 2 weeks.until results within normal limits. Collect weekly if baseline is abnormal. Performed By: #### L [id number] #### [facility] (DEFAULT) [address] [address] Segs + Bands Auto 60.9 % Normal [facility] Comment on above: Order Comment: Prior to first [facility]ex Infusion and then every 2 weeks.until results within normal limits. Collect weekly if baseline is abnormal. Performed By: #### L [id number] #### [facility] (DEFAULT) [address] [address] Segs + Bands,Absolute Auto 5.63 K/uL Normal 1.64-7.28 [facility] Comment on above: Order Comment: Prior to first [facility] Infusion and then every 2 weeks.until results within normal limits. Collect weekly if baseline is abnormal. Performed By: #### L [id number] #### [facility] (DEFAULT) [address] [address] WBC (Bld) [#/Vol] 9.27 10*3/uL Normal 3.99-11.19 [facility] Comment on above: Order Comment: Prior to first [facility]ex Infusion and then every 2 weeks.until results within normal limits. Collect weekly if baseline is abnormal. Performed By: #### L [id number] #### [facility] (DEFAULT) [address] [address] B HYDROXYBUTYRATEon 01-15-20 21 B HYDROXYBUTYRATE 0.08 MMOL/L Normal 0.02-0.27 [facility] Comment on above: Performed By: #### C SANGEETA CRUZ, ACBC #### Testing performed at [address] [address] CBCon 01-14-2021 ABSOLUTE BAS 0.0 10*3/uL Normal 0.0-0.2 [facility] Comment on above: Performed By: #### C MPF, BHB, ACBC #### Testing performed at [address] [address] ABSOLUTE EOS 0.20 10*3/uL Normal 0.0-0.7 [facility] Comment on above: Performed By: #### C MPF, BHB, ACBC #### Testing performed at [address] [address] ABSOLUTE NEUTROPHIL COUNT 4.9 10*3/uL Normal 1.4-6.5 [facility] Comment on above: Performed By: #### C MPF, BHB, ACBC #### Testing performed at [address] [address] Basophils/100 WBC (Bld) 0.4 % Normal 0.0-2.0 [facility] Comment on above: Performed By: #### C MPF, BHB, ACBC #### Testing performed at [address] [address] DTYPE AUTO DIFF Normal [facility] Comment on above: Performed By: #### C MPF, BHB, ACBC #### Testing performed at [address] [address] Eosinophils/100 WBC (Bld) 2.3 % Normal 0.0-11.0 [facility] Comment on above: Performed By: #### C MPF, BHB, ACBC #### Testing performed at [address] [address] Lymphocytes (Bld) [#/Vol] 2.10 10*3/uL Normal 1.2-3.4 [facility] Comment on above: Performed By: #### C MPF, BHB, ACBC #### Testing performed at [address] [address] Lymphocytes/100 WBC (Bld) 27.2 % Normal 20.0-55.0 [facility] Comment on above: Performed By: #### C MPF, BHB, ACBC #### Testing performed at [address] [address] Monocytes (Bld) [#/Vol] 0.6 10*3/uL Normal 0.0-0.7 [facility] Comment on above: Performed By: #### C MPF, BHB, ACBC #### Testing performed at [facility] [address] [place] [address] Monocytes/100 WBC (Bld) 7.5 % Normal 0.0-10.0 [facility] Comment on above: Performed By: #### C MPF BHB, ACBC #### Testing performed at [address] [address] Neutrophils/100 WBC (Bld) 62.6 % Normal 37.0-75.0 [facility] Comment on above: Performed By: #### C MPF BHB, ACBC #### Testing performed at [address] [address] [address] Erythrocyte distribution width (RBC) [Ratio] 15.6 % High 11.5-14.5 [facility] Comment on above: Performed By: #### C MPF BHB, ACBC #### Testing performed at [address] [address] Hematocrit (Bld) [Volume fraction] 32.7 % Low 36.0-48.0 [facility] Comment on above: Performed By: #### C MPF BHB, ACBC #### Testing performed at [address] [address] Hemoglobin (Bld) [Mass/Vol] 10.8 g/dL Low 12.0-16.0 [facility] Comment on above: Performed By: #### C MPF BHB, ACBC #### Testing performed at [address] [address] MCH (RBC) [Entitic mass] 27.3 pg Normal 26.0-35.0 [facility] Comment on above: Performed By: #### C MPF, BHB, ACBC #### Testing performed at [address] [address] MCHC (RBC) [Mass/Vol] 33.1 g/dL Normal 27.0-37.0 [facility] Comment on above: Performed By: #### C MPF, BHB, ACBC #### Testing performed at [address] [address] MCV (RBC) [Entitic vol] 82.5 fL Normal 80.0-100.0 [facility] Comment on above: Performed By: #### C MPF, BHB, ACBC #### Testing performed at [address] [address] Platelet mean volume (Bld) [Entitic vol] 7.1 fL Low 7.4-11.0 [facility] Comment on above: Performed By: #### C MPF, BHB, ACBC #### Testing performed at [address] [address] Platelets (Bld) [#/Vol] 359 10*3/uL Normal 130.0-400.0 [facility] Comment on above: Performed By: #### C MPF, BHB, ACBC #### Testing performed at [address] [address] RBC (Bld) [#/Vol] 3.96 10*6/uL Low 4.0-5.4 [facility] Comment on above: Performed By: #### C MPF, BHB, ACBC #### Testing performed at [address] [address] WBC (Bld) [#/Vol] 7.8 10*3/uL Normal 3.6-11.0 [facility] Comment on above: Performed By: #### C MPF, BHB, ACBC #### Testing performed at [address] [address] CMP FASTINGon 01-14-2021 A:G RATIO 1.0 RATIO Low 1.3-2.2 [facility] Comment on above: Performed By: #### C MPF, BHB, ACBC #### Testing performed at [address] [address] ALBUMIN 3.9 G/dl Normal 3.5-5.0 [facility] Comment on above: Performed By: #### C MPF, BHB, ACBC #### Testing performed at [address] [address] ALP [Catalytic activity/Vol] 117 U/L Normal 38-126 [facility] Comment on above: Performed By: #### C MPF, BHB, ACBC #### Testing performed at [address] [address] ALT [Catalytic activity/Vol] 24 U/L Normal 14-54 [facility] Comment on above: Performed By: #### C MPF BHB, ACBC #### Testing performed at [address] [address] AST [Catalytic activity/Vol] 22 U/L Normal 15-41 [facility] Comment on above: Performed By: #### C MPF BHB, ACBC #### Testing performed at [address] [address] Bilirubin [Mass/Vol] 0.4 mg/dL Normal 0.2-1.2 [facility] Comment on above: Performed By: #### C MPF BHB, ACBC #### Testing performed at [address] [address] Calcium [Mass/Vol] 9.0 mg/dL Normal 8.4-10.2 [facility] Comment on above: Performed By: #### C MPF BHB, ACBC #### Testing performed at [address] [address] Chloride [Moles/Vol] 101 mmol/L Normal 98-107 [facility] Comment on above: Performed By: #### C MPF BHB, ACBC #### Testing performed at [address] [address] CO2 [Moles/Vol] 23 mmol/L Normal 22-30 [facility] Comment on above: Performed By: #### C MPF BHB, ACBC #### Testing performed at [address] [address] Creatinine [Mass/Vol] 1.40 mg/dL High 0.52-1.04 [facility] Comment on above: Performed By: #### C MPF BHB, ACBC #### Testing performed at [address] [address] EST. GFR, 50 ml/min/1.73sq.m Normal [facility] Comment on above: Performed By: #### C MPF BHB, ACBC #### Testing performed at [address] [address] EST. GFR,Non 41 ml/min/1.73sq.m Normal [facility] Comment on above: Performed By: #### C SANGEETA CRUZ ACBC #### Testing performed at [address] [address] GFR Information Average GFR for 50-5 9 years old = 93. Normal [facility] Comment on above: Result Comment: Casino Surveillance Officer garfield Kidney disease, GFR = <60. Kidney failure, GFR = <15. The GFR estimate is not adjusted for extreme body surface area or acute process, nor has it been validated for women or ethnic groups other than and . Performed By: #### C SANGEETA CRUZ ACBC #### Testing performed at [address] [address] Glucose [Mass/Vol] 457 mg/dL Critically high 70-100 [facility] Comment on above: Result Comment: NORMAL <100 mg/dL PREDIABETES 101-126 mg/dL DIABETES 126 mg/dL or higher Result called to read back by: Susan WOODY 01/13/2021 @ 22:34 by CHARLES Performed By: #### C SANGEETA CRUZ ACBC #### Testing performed at [address] [address] Potassium [Moles/Vol] 4.6 mmol/L Normal 3.5-5.1 [facility] Comment on above: Performed By: #### C SANGEETA CRUZ ACCORIE #### Testing performed at [address] [address] Protein [Mass/Vol] 7.9 g/dL Normal 6.3-8.2 [facility] Comment on above: Performed By: #### C SANGEETA CRUZ ACBC #### Testing performed at [address] [address] Sodium [Moles/Vol] 134 mmol/L Low 136-145 [facility] Comment on above: Performed By: #### C ANTHONY BHB, ACBC #### Testing performed at [address] [address] Urea nitrogen [Mass/Vol] 36 mg/dL High 7-20 [facility] Comment on above: Performed By: #### C MPF, BHB, ACBC #### Testing performed at [address] [address] POCT GLUCOSEon 01-14-2021 Glucose [Mass/Vol] 391 mg/dL High 70-100 [facility] SURGICAL DEVICE SALES REPRESENTATIVE [id number] Normal [facility] Glucose [Mass/Vol] 217 mg/dL High 70-100 [facility] SURGICAL DEVICE SALES REPRESENTATIVE [id number] Normal [facility] URINE MACROSCOPICon 01-15-20 21 Bilirubin Ql (U) Negative Normal NEGATIVE [facility] Comment on above: Performed By: #### U MAC, UMIC #### Testing performed at [address] [address] Clarity (U) CLEAR Normal CLEAR [facility] Comment on above: Performed By: #### U MAC, UMIC #### Testing performed at [address] [address] Color (U) YELLOW Normal YELLOW [facility] Comment on above: Performed By: #### U MAC, UMIC #### Testing performed at [address] [address] Glucose Ql (U) 500 mg/dl Abnormal NEGATIVE [facility] Comment on above: Performed By: #### U MAC, UMIC #### Testing performed at [address] [address] pH (U) 6.0 [pH] Normal 5.0-7.0 [facility] Comment on above: Performed By: #### U MAC, UMIC #### Testing performed at [address] [address] URINE HEMOGLOBIN TRACE-INTACT Abnormal NEGATIVE [facility] Comment on above: Performed By: #### U MAC, UMIC #### Testing performed at [address] [address] URINE KETONE Negative Normal NEGATIVE [facility] Comment on above: Performed By: #### U MAC, UMIC #### Testing performed at [address] [address] URINE LEUKOTEST Negative Normal NEGATIVE [facility] Comment on above: Performed By: #### U MAC, UMIC #### Testing performed at [address] [place] [address] URINE NITRATES Negative Normal NEGATIVE [facility] Comment on above: Performed By: #### U MAC, UMIC #### Testing performed at [address] [address] URINE SPEC GRAVITY 1.015 Normal 1.010-1.025 [facility] Comment on above: Performed By: #### U MAC, UMIC #### Testing performed at [address] [address] URINE TOTAL PROTEIN Negative Normal NEGATIVE [facility] Comment on above: Performed By: #### U MAC, UMIC #### Testing performed at [address] [address] Urobilinogen Qn (U) 0.2 {Rikki'U}/dL Normal 0.2-1.0 [facility] Comment on above: Performed By: #### U MAC, UMIC #### Testing performed at [address] [address] URINE MICROSCOPICon 01-15-20 21 Bacteria LM.HPF (Urine sed) [#/Area] Negative Normal NEGATIVE [facility] Comment on above: Performed By: #### U MAC, UMIC #### Testing performed at [address] [address] CASTS NONE Normal [facility] Comment on above: Performed By: #### U MAC, UMIC #### Testing performed at [address] [place] [address] CRYSTAL NONE Normal [facility] Comment on above: Performed By: #### U MAC, UMIC #### Testing performed at [address] [address] Epithelial cells LM Ql (Urine sed) 1 TO 5 Normal [facility] Comment on above: Performed By: #### U MAC, UMIC #### Testing performed at [address] [address] Mucus Ql (Urine sed) Negative Normal NEGATIVE [facility] Comment on above: Performed By: #### U MAC, UMIC #### Testing performed at [address] [place] [address] URINE COMMENT CULTURE CRITERIA NOT MET, NO CULTURE PERFORMED. Normal [facility] Comment on above: Performed By: #### U MAC, UMIC #### Testing performed at [address] [address] URINE RBC'S Negative Normal NEGATIVE [facility] Comment on above: Performed By: #### U MAC, UMIC #### Testing performed at [address] [address] URINE WBC'S Negative Normal NEGATIVE [facility] Comment on above: Performed By: #### U MAC, UMIC #### Testing performed at [address] [address] BUN CREAon 01-10-2021 Creatinine [Mass/Vol] 1.22 mg/dL High 0.50-1.[address] [facility] Comment on above: Order Comment: Prior to first [facility] and every 2 weeks if baseline CR is within normal limits. Performed By: #### B CR #### [facility] (DEFAULT) [address] [address] EST GFR, 55 mL/min/1.73sqM Low >=60 [facility] Comment on above: Order Comment: Prior to first [facility] and every 2 weeks if baseline CR is within normal limits. Performed By: #### B CR #### [facility] (DEFAULT) [address] [address] EST GFR,Non 45 mL/min/1.73sqM Low >=60 [facility] Comment on above: Order Comment: Prior to first [facility] and every 2 weeks if baseline CR is within normal limits. Performed By: #### B CR #### [facility] (DEFAULT) [address] [address] Urea nitrogen [Mass/Vol] 20 mg/dL Normal - [facility] Comment on above: Order Comment: Prior to first [facility] and every 2 weeks if baseline CR is within normal limits. Performed By: #### B CR #### [facility] (DEFAULT) [address] [address] Urea nitrogen/Creatinine [Mass ratio] 16 mg/mg Normal [facility] Comment on above: Order Comment: Prior to first [facility] and every 2 weeks if baseline CR is within normal limits. Performed By: #### B CR #### [facility] (DEFAULT) [address] [address] CBC AND ELECTRONIC DIFFon Basophils (Bld) [#/Vol] 10*3/uL Normal 0.00-0.15 [facility] Comment on above: Order Comment: Prior to first [facility] and then every 2 weeks.until results within normal limits. Collect weekly if baseline is abnormal. Performed By: #### L [id number] #### [facility] (DEFAULT) [address] [address] Basophils/100 WBC (Bld) 0.4 % Normal [facility] Comment on above: Order Comment: Prior to first [facility] and then every 2 weeks.until results within normal limits. Collect weekly if baseline is abnormal. Performed By: #### L [id number] #### [facility] (DEFAULT) [address] [address] DIFF STATUS Electronic Differential Normal [facility] Comment on above: Order Comment: Prior to first [facility] and then every 2 weeks.until results within normal limits. Collect weekly if baseline is abnormal. Performed By: #### L [id number] #### [facility] (DEFAULT) [address] [address] Eosinophils (Bld) [#/Vol] 0.16 10*3/uL Normal 0.00-0.42 [facility] Comment on above: Order Comment: Prior to first [facility] and then every 2 weeks.until results within normal limits. Collect weekly if baseline is abnormal. Performed By: #### L [id number] #### [facility] (DEFAULT) [address] [address] Eosinophils/100 WBC (Bld) 2.1 % Normal [facility] Comment on above: Order Comment: Prior to first [facility] and then every 2 weeks.until results within normal limits. Collect weekly if baseline is abnormal. Performed By: #### L [id number] #### [facility] (DEFAULT) [address] [address] Hematocrit (Bld) [Volume fraction] 32.0 % Low 34.9-44.3 [facility] Comment on above: Order Comment: Prior to first [facility] and then every 2 weeks.until results within normal limits. Collect weekly if baseline is abnormal. Performed By: #### L [id number] #### [facility] (DEFAULT) [address] [address] Hemoglobin (Bld) [Mass/Vol] 10.1 g/dL Low 11.4-15.2 [facility] Comment on above: Order Comment: Prior to first [facility] and then every 2 weeks.until results within normal limits. Collect weekly if baseline is abnormal. Performed By: #### L [id number] #### [facility] (DEFAULT) [address] [address] Immature Grans % 0.3 % Normal [facility] Comment on above: Order Comment: Prior to first [facility] and then every 2 weeks.until results within normal limits. Collect weekly if baseline is abnormal. Performed By: #### L [id number] #### [facility] (DEFAULT) [address] [address] Immature Grans Absolute <0.04 Normal <=0.09 [facility] Comment on above: Order Comment: Prior to first [facility] and then every 2 weeks.until results within normal limits. Collect weekly if baseline is abnormal. Performed By: #### L [id number] #### [facility] (DEFAULT) [address] [address] Lymphocytes (Bld) [#/Vol] 2.23 10*3/uL Normal 1.16-3.51 [facility] Comment on above: Order Comment: Prior to first [facility] and then every 2 weeks.until results within normal limits. Collect weekly if baseline is abnormal. Performed By: #### L [id number] #### [facility] (DEFAULT) [address] [address] Lymphocytes/100 WBC (Bld) 28.8 % Normal [facility] Comment on above: Order Comment: Prior to first [facility] and then every 2 weeks.until results within normal limits. Collect weekly if baseline is abnormal. Performed By: #### L [id number] #### [facility] (DEFAULT) [address] [address] MCV (RBC) [Entitic vol] 86.0 fL Normal 79.6-97.7 [facility] Comment on above: Order Comment: Prior to first [facility] and then every 2 weeks.until results within normal limits. Collect weekly if baseline is abnormal. Performed By: #### L [id number] #### [facility] (DEFAULT) [address] [address] Mean Cell Hgb 27.2 pg Normal 25.9-33.9 [facility] Comment on above: Order Comment: Prior to first [facility] and then every 2 weeks.until results within normal limits. Collect weekly if baseline is abnormal. Performed By: #### L [id number] #### [facility] (DEFAULT) [address] [address] Mean Cell Hgb Conc 31.6 g/dL Normal 31.4-35.9 [facility] Comment on above: Order Comment: Prior to first [facility] and then every 2 weeks.until results within normal limits. Collect weekly if baseline is abnormal. Performed By: #### L [id number] #### [facility] (DEFAULT) [address] [address] Monocytes (Bld) [#/Vol] 0.38 10*3/uL Normal 0.22-0.87 [facility] Comment on above: Order Comment: Prior to first [facility] and then every 2 weeks.until results within normal limits. Collect weekly if baseline is abnormal. Performed By: #### L [id number] #### [facility] (DEFAULT) [address] [address] Monocytes/100 WBC (Bld) 4.9 % Normal [facility] Comment on above: Order Comment: Prior to first [facility] and then every 2 weeks.until results within normal limits. Collect weekly if baseline is abnormal. Performed By: #### L [id number] #### [facility] (DEFAULT) [address] [address] Nucleated RBC 0.0 /100 WBC Normal <=0.2 [facility] Comment on above: Order Comment: Prior to first [facility] and then every 2 weeks.until results within normal limits. Collect weekly if baseline is abnormal. Performed By: #### L [id number] #### [facility] (DEFAULT) [address] [address] Platelet mean volume (Bld) [Entitic vol] 9.4 fL Normal 8.5-12.2 [facility] Comment on above: Order Comment: Prior to first [facility] and then every 2 weeks.until results within normal limits. Collect weekly if baseline is abnormal. Performed By: #### L [id number] #### [facility] (DEFAULT) [address] [place] [address] Platelets (Bld) [#/Vol] 352 10*3/uL Normal 150-393 [facility] Comment on above: Order Comment: Prior to first [facility] and then every 2 weeks.until results within normal limits. Collect weekly if baseline is abnormal. Performed By: #### L [id number] #### [facility] (DEFAULT) [address] [address] RBC (Bld) [#/Vol] 3.72 10*6/uL Low 3.91-5.04 [facility] Comment on above: Order Comment: Prior to first [facility] and then every 2 weeks.until results within normal limits. Collect weekly if baseline is abnormal. Performed By: #### L [id number] #### [facility] (DEFAULT) [address] [address] RBC Distribution 15.3 % High 10.8-14.9 [facility] Comment on above: Order Comment: Prior to first [facility] and then every 2 weeks.until results within normal limits. Collect weekly if baseline is abnormal. Performed By: #### L [id number] #### [facility] (DEFAULT) [address] [address] Segs + Bands Auto 63.5 % Normal [facility] Comment on above: Order Comment: Prior to first [facility]fusion and then every 2 weeks.until results within normal limits. Collect weekly if baseline is abnormal. Performed By: #### L [id number] #### [facility] (DEFAULT) [address] [address] Segs + Bands,Absolute Auto 4.93 K/uL Normal 1.64-7.28 [facility] Comment on above: Order Comment: Prior to first [facility]fusion and then every 2 weeks.until results within normal limits. Collect weekly if baseline is abnormal. Performed By: #### L [id number] #### [facility] (DEFAULT) [address] [address] WBC (Bld) [#/Vol] 7.75 10*3/uL Normal 3.99-11.19 [facility] Comment on above: Order Comment: Prior to first [facility] and then every 2 weeks.until results within normal limits. Collect weekly if baseline is abnormal. Performed By: #### L [id number] #### [facility] (DEFAULT) [address] [address] BUN CREAon 12-27-2020 Creatinine [Mass/Vol] 1.10 mg/dL Normal 0.50-1.[address] [facility] Comment on above: Order Comment: Prior to first [facility] and every 2 weeks if baseline CR is within normal limits. Performed By: #### B CR #### [facility] (DEFAULT) [address] [address] EST GFR, >=60 Normal >=60 [facility] Comment on above: Order Comment: Prior to first [facility] and every 2 weeks if baseline CR is within normal limits. Performed By: #### B CR #### [facility] (DEFAULT) [address] [place] [address] EST GFR,Non 51 mL/min/1.73sqM Low >=60 [facility] Comment on above: Order Comment: Prior to first [facility] and every 2 weeks if baseline CR is within normal limits. Performed By: #### B CR #### [facility] (DEFAULT) [address] [place] [address] Urea nitrogen [Mass/Vol] 26 mg/dL High 09-07 [facility] Comment on above: Order Comment: Prior to first [facility] and every 2 weeks if baseline CR is within normal limits. Performed By: #### B CR #### [facility] (DEFAULT) [address] [place] [address] Urea nitrogen/Creatinine [Mass ratio] 24 mg/mg Normal [facility] Comment on above: Order Comment: Prior to first [facility] and every 2 weeks if baseline CR is within normal limits. Performed By: #### B CR #### [facility] (DEFAULT) [address] [place] [address] CBC AND ELECTRONIC DIFFon Basophils (Bld) [#/Vol] 10*3/uL Normal 0.00-0.15 [facility] Comment on above: Order Comment: Prior to first [facility] and every 2 weeks if baseline CR is within normal limits. Performed By: #### B CR #### [facility] (DEFAULT) [address] [place] [address] Basophils/100 WBC (Bld) 0.3 % Normal [facility] Comment on above: Order Comment: Prior to first [facility] and every 2 weeks if baseline CR is within normal limits. Performed By: #### B CR #### [facility] (DEFAULT) [address] [place] [address] DIFF STATUS Electronic Differential Normal [facility] Comment on above: Order Comment: Prior to first [facility] In[facility] and every 2 weeks if baseline CR is within normal limits. Performed By: #### B CR #### [facility] (DEFAULT) [address] [place] [address] Eosinophils (Bld) [#/Vol] 0.20 10*3/uL Normal 0.00-0.42 [facility] Comment on above: Order Comment: Prior to first [facility] In[facility] and every 2 weeks if baseline CR is within normal limits. Performed By: #### B CR #### [facility] (DEFAULT) [address] [address] Eosinophils/100 WBC (Bld) 2.0 % Normal [facility] Comment on above: Order Comment: Prior to first [facility] In[facility] and every 2 weeks if baseline CR is within normal limits. Performed By: #### B CR #### [facility] (DEFAULT) [address] [place] [address] Hematocrit (Bld) [Volume fraction] 31.0 % Low 34.9-44.3 [facility] Comment on above: Order Comment: Prior to first [facility] Infusion and every 2 weeks if baseline CR is within normal limits. Performed By: #### B CR #### [facility] (DEFAULT) [address] [place] [address] Hemoglobin (Bld) [Mass/Vol] 10.0 g/dL Low 11.4-15.2 [facility] Comment on above: Order Comment: Prior to first [facility] Infusion and every 2 weeks if baseline CR is within normal limits. Performed By: #### B CR #### [facility] (DEFAULT) [address] [address] Immature Grans % 0.2 % Normal [facility] Comment on above: Order Comment: Prior to first [facility] Infusion and every 2 weeks if baseline CR is within normal limits. Performed By: #### B CR #### [facility] (DEFAULT) [address] [address] Immature Grans Absolute <0.04 Normal <=0.09 [facility] Comment on above: Order Comment: Prior to first [facility] Infusion and every 2 weeks if baseline CR is within normal limits. Performed By: #### B CR #### [facility] (DEFAULT) [address] [address] Lymphocytes (Bld) [#/Vol] 2.96 10*3/uL Normal 1.16-3.51 [facility] Comment on above: Order Comment: Prior to first [facility] and every 2 weeks if baseline CR is within normal limits. Performed By: #### B CR #### [facility] (DEFAULT) [address] [address] Lymphocytes/100 WBC (Bld) 29.9 % Normal [facility] Comment on above: Order Comment: Prior to first [facility] and every 2 weeks if baseline CR is within normal limits. Performed By: #### B CR #### [facility] (DEFAULT) [address] [address] MCV (RBC) [Entitic vol] 84.9 fL Normal 79.6-97.7 [facility] Comment on above: Order Comment: Prior to first [facility] and every 2 weeks if baseline CR is within normal limits. Performed By: #### B CR #### [facility] (DEFAULT) [address] [address] Mean Cell Hgb 27.4 pg Normal 25.9-33.9 [facility] Comment on above: Order Comment: Prior to first [facility] and every 2 weeks if baseline CR is within normal limits. Performed By: #### B CR #### [facility] (DEFAULT) [address] [address] Mean Cell Hgb Conc 32.3 g/dL Normal 31.4-35.9 [facility] Comment on above: Order Comment: Prior to first [facility] and every 2 weeks if baseline CR is within normal limits. Performed By: #### B CR #### [facility] (DEFAULT) [address] [address] Monocytes (Bld) [#/Vol] 0.50 10*3/uL Normal 0.22-0.87 [facility] Comment on above: Order Comment: Prior to first [facility] and every 2 weeks if baseline CR is within normal limits. Performed By: #### B CR #### [facility] (DEFAULT) [address] [place] [address] Monocytes/100 WBC (Bld) 5.1 % Normal [facility] Comment on above: Order Comment: Prior to first [facility] and every 2 weeks if baseline CR is within normal limits. Performed By: #### B CR #### [facility] (DEFAULT) [address] [address] Nucleated RBC 0.0 /100 WBC Normal <=0.2 [facility] Comment on above: Order Comment: Prior to first [facility] and every 2 weeks if baseline CR is within normal limits. Performed By: #### B CR #### [facility] (DEFAULT) [address] [address] Platelet mean volume (Bld) [Entitic vol] 9.2 fL Normal 8.5-12.2 [facility] Comment on above: Order Comment: Prior to first [facility] and every 2 weeks if baseline CR is within normal limits. Performed By: #### B CR #### [facility] (DEFAULT) [address] [place] [address] Platelets (Bld) [#/Vol] 372 10*3/uL Normal 150-393 [facility] Comment on above: Order Comment: Prior to first [facility] and every 2 weeks if baseline CR is within normal limits. Performed By: #### B CR #### [facility] (DEFAULT) [address] [address] RBC (Bld) [#/Vol] 3.65 10*6/uL Low 3.91-5.04 [facility] Comment on above: Order Comment: Prior to first [facility] and every 2 weeks if baseline CR is within normal limits. Performed By: #### B CR #### [facility] (DEFAULT) [address] [address] RBC Distribution 14.7 % Normal 10.8-14.9 [facility] Comment on above: Order Comment: Prior to first [facility] and every 2 weeks if baseline CR is within normal limits. Performed By: #### B CR #### [facility] (DEFAULT) [address] [address] Segs + Bands Auto 62.5 % Normal [facility] Comment on above: Order Comment: Prior to first [facility] and every 2 weeks if baseline CR is within normal limits. Performed By: #### B CR #### [facility] (DEFAULT) [address] [address] Segs + Bands,Absolute Auto 6.18 K/uL Normal 1.64-7.28 [facility] Comment on above: Order Comment: Prior to first [facility] and every 2 weeks if baseline CR is within normal limits. Performed By: #### B CR #### [facility] (DEFAULT) [address] [address] WBC (Bld) [#/Vol] 9.89 10*3/uL Normal 3.99-11.19 [facility] Comment on above: Order Comment: Prior to first [facility] and every 2 weeks if baseline CR is within normal limits. Performed By: #### B CR #### [facility] (DEFAULT) [address] [address] OCT/HRT MACULA OUon 12-28-19 21 OCT/HRT [place] OU Right Eye Quality was good. Findings include subretinal fluid. Interval change is better. Recommendation for management is to continue treatment. Left Eye Quality was good. Findings include subretinal fluid. Interval change is better. Recommendation for management is to continue treatment. Normal [facility] Apply dressingon 12-19-2020 Applied dressing [facility] Apply dressingOrdered By: St ester Aguirre on 12-19-2020 [facility] BUN CREAon 12-13-2020 Creatinine [Mass/Vol] 0.99 mg/dL Normal 0.50-1.[address] [facility] Comment on above: Order Comment: Prior to first [facility] and every 2 weeks if baseline CR is within normal limits. Performed By: #### B CR #### [facility] (DEFAULT) [address] [address] EST GFR, >=60 Normal >=60 [facility] Comment on above: Order Comment: Prior to first [facility] and every 2 weeks if baseline CR is within normal limits. Performed By: #### B CR #### [facility] (DEFAULT) [address] [address] EST GFR,Non 58 mL/min/1.73sqM Low >=60 [facility] Comment on above: Order Comment: Prior to first [facility] and every 2 weeks if baseline CR is within normal limits. Performed By: #### B CR #### [facility] (DEFAULT) [address] [place] [address] Urea nitrogen [Mass/Vol] 25 mg/dL High 09-07 [facility] Comment on above: Order Comment: Prior to first [facility] and every 2 weeks if baseline CR is within normal limits. Performed By: #### B CR #### [facility] (DEFAULT) [address] [place] [address] Urea nitrogen/Creatinine [Mass ratio] 25 mg/mg Normal [facility] Comment on above: Order Comment: Prior to first [facility] and every 2 weeks if baseline CR is within normal limits. Performed By: #### B CR #### [facility] (DEFAULT) [address] [address] CBC AND ELECTRONIC DIFFon Basophils (Bld) [#/Vol] 0.04 10*3/uL Normal 0.00-0.15 [facility] Comment on above: Order Comment: Prior to first [facility] and every 2 weeks if baseline CR is within normal limits. Performed By: #### B CR #### [facility] (DEFAULT) [address] [place] [address] Basophils/100 WBC (Bld) 0.4 % Normal [facility] Comment on above: Order Comment: Prior to first [facility] and every 2 weeks if baseline CR is within normal limits. Performed By: #### B CR #### [facility] (DEFAULT) [address] [place] [address] DIFF STATUS Electronic Differential Normal [facility] Comment on above: Order Comment: Prior to first [facility] and every 2 weeks if baseline CR is within normal limits. Performed By: #### B CR #### [facility] (DEFAULT) [address] [place] [address] Eosinophils (Bld) [#/Vol] 0.13 10*3/uL Normal 0.00-0.42 [facility] Comment on above: Order Comment: Prior to first [facility] and every 2 weeks if baseline CR is within normal limits. Performed By: #### B CR #### [facility] (DEFAULT) [address] [place] [address] Eosinophils/100 WBC (Bld) 1.4 % Normal [facility] Comment on above: Order Comment: Prior to first [facility] and every 2 weeks if baseline CR is within normal limits. Performed By: #### B CR #### [facility] (DEFAULT) [address] [place] [address] Hematocrit (Bld) [Volume fraction] 33.6 % Low 34.9-44.3 [facility] Comment on above: Order Comment: Prior to first [facility] and every 2 weeks if baseline CR is within normal limits. Performed By: #### B CR #### [facility] (DEFAULT) [address] [place] [address] Hemoglobin (Bld) [Mass/Vol] 10.6 g/dL Low 11.4-15.2 [facility] Comment on above: Order Comment: Prior to first [facility] In[facility] and every 2 weeks if baseline CR is within normal limits. Performed By: #### B CR #### [facility] (DEFAULT) [address] [place] [address] Immature Grans % 0.2 % Normal [facility] Comment on above: Order Comment: Prior to first [facility] In[facility] and every 2 weeks if baseline CR is within normal limits. Performed By: #### B CR #### [facility] (DEFAULT) [address] [place] [address] Immature Grans Absolute <0.04 Normal <=0.09 [facility] Comment on above: Order Comment: Prior to first [facility] In[facility] and every 2 weeks if baseline CR is within normal limits. Performed By: #### B CR #### [facility] (DEFAULT) [address] [address] Lymphocytes (Bld) [#/Vol] 2.53 10*3/uL Normal 1.16-3.51 [facility] Comment on above: Order Comment: Prior to first [facility] In[facility] and every 2 weeks if baseline CR is within normal limits. Performed By: #### B CR #### [facility] (DEFAULT) [address] [address] Lymphocytes/100 WBC (Bld) 27.2 % Normal [facility] Comment on above: Order Comment: Prior to first [facility] In[facility] and every 2 weeks if baseline CR is within normal limits. Performed By: #### B CR #### [facility] (DEFAULT) [address] [address] MCV (RBC) [Entitic vol] 86.4 fL Normal 79.6-97.7 [facility] Comment on above: Order Comment: Prior to first [facility] and every 2 weeks if baseline CR is within normal limits. Performed By: #### B CR #### [facility] (DEFAULT) [address] [place] [address] Mean Cell Hgb 27.2 pg Normal 25.9-33.9 [facility] Comment on above: Order Comment: Prior to first [facility] In[facility] and every 2 weeks if baseline CR is within normal limits. Performed By: #### B CR #### [facility] (DEFAULT) [address] [address] Mean Cell Hgb Conc 31.5 g/dL Normal 31.4-35.9 [facility] Comment on above: Order Comment: Prior to first [facility] In[facility] and every 2 weeks if baseline CR is within normal limits. Performed By: #### B CR #### [facility] (DEFAULT) [address] [address] Monocytes (Bld) [#/Vol] 0.60 10*3/uL Normal 0.22-0.87 [facility] Comment on above: Order Comment: Prior to first [facility] and every 2 weeks if baseline CR is within normal limits. Performed By: #### B CR #### [facility] (DEFAULT) [address] [address] Monocytes/100 WBC (Bld) 6.4 % Normal [facility] Comment on above: Order Comment: Prior to first [facility] In[facility] and every 2 weeks if baseline CR is within normal limits. Performed By: #### B CR #### [facility] (DEFAULT) [address] [address] Nucleated RBC 0.0 /100 WBC Normal <=0.2 [facility] Comment on above: Order Comment: Prior to first [facility] In[facility] and every 2 weeks if baseline CR is within normal limits. Performed By: #### B CR #### [facility] (DEFAULT) [address] [address] Platelet mean volume (Bld) [Entitic vol] 9.5 fL Normal 8.5-12.2 [facility] Comment on above: Order Comment: Prior to first [facility] Infusion and every 2 weeks if baseline CR is within normal limits. Performed By: #### B CR #### [facility] (DEFAULT) [address] [address] Platelets (Bld) [#/Vol] 365 10*3/uL Normal 150-393 [facility] Comment on above: Order Comment: Prior to first [facility] In[facility] and every 2 weeks if baseline CR is within normal limits. Performed By: #### B CR #### [facility] (DEFAULT) [address] [place] [address] RBC (Bld) [#/Vol] 3.89 10*6/uL Low 3.91-5.04 [facility] Comment on above: Order Comment: Prior to first [facility] In[facility] and every 2 weeks if baseline CR is within normal limits. Performed By: #### B CR #### [facility] (DEFAULT) [address] [address] RBC Distribution 14.5 % Normal 10.8-14.9 [facility] Comment on above: Order Comment: Prior to first [facility] Infusion and every 2 weeks if baseline CR is within normal limits. Performed By: #### B CR #### [facility] (DEFAULT) [address] [address] Segs + Bands Auto 64.4 % Normal [facility] Comment on above: Order Comment: Prior to first [facility] In[facility] and every 2 weeks if baseline CR is within normal limits. Performed By: #### B CR #### [facility] (DEFAULT) [address] [address] Segs + Bands,Absolute Auto 5.99 K/uL Normal 1.64-7.28 [facility] Comment on above: Order Comment: Prior to first [facility] In[facility] and every 2 weeks if baseline CR is within normal limits. Performed By: #### B CR #### [facility] (DEFAULT) [address] [address] WBC (Bld) [#/Vol] 9.31 10*3/uL Normal 3.99-11.19 [facility] Comment on above: Order Comment: Prior to first [facility] and every 2 weeks if baseline CR is within normal limits. Performed By: #### B CR #### [facility] (DEFAULT) [address] [place] [address] ESR Westergren method (Bld) [Velocity]Ordered By: Terence Martinez on 10-17-2020 ESR (Bld) [Velocity] 64 mm/h [facility] Interpretation and review of laboratory results Abnormal [facility] OCT OPTIC NERVE OUon 021 [facility] Radiology Study observation (narrative) [facility] BUN CREAon 10-03-2020 Creatinine [Mass/Vol] 1.13 mg/dL 0.50 - 1.20 mg/dL [facility] GFR/1.73 sq M.predicted MDRD (S/P/Bld) [Vol rate/Area] 50 mL/min/{1.73_m2} Low >=60 mL/min/1.73 sqM [facility] GFR/1.73 sq M.predicted MDRD (S/P/Bld) [Vol rate/Area] mL/min/{1.73_m2} >=60 mL/min/1.73 sqM [facility] Interpretation and review of laboratory results Abnormal [facility] Urea nitrogen [Mass/Vol] 20 mg/dL 7 - 22 mg/dL [facility] Urea nitrogen/Creatinine [Mass ratio] 18 mg/mg [facility] CBC AND ELECTRONIC DIFFon Basophils (Bld) [#/Vol] 10*3/uL 0.00 - 0.15 K/uL [facility] Basophils/100 WBC (Bld) 0.3 % O [facility] DIFF STATUS Electronic Differential [facility] Eosinophils (Bld) [#/Vol] 0.16 10*3/uL 0.00 - 0.42 K/uL [facility] Eosinophils/100 WBC (Bld) 2.1 % [facility] Erythrocyte distribution width (RBC) [Ratio] 14.0 % 10.8 - 14.9 % [facility] Hematocrit (Bld) [Volume fraction] 33.7 % Low 34.9 - 44.3 % [facility] Hemoglobin (Bld) [Mass/Vol] 10.3 g/dL Low 11.4 - 15.2 g/dL [facility] Immature granulocytes (Bld) [#/Vol] 10*3/uL <=0.09 K/uL [facility] Immature granulocytes/100 WBC (Bld) 0.3 % [facility] Interpretation and review of laboratory results Abnormal [facility] Lymphocytes (Bld) [#/Vol] 2.21 10*3/uL 1.16 - 3.51 K/uL [facility] Lymphocytes/100 WBC (Bld) 29.3 % [facility] MCH (RBC) [Entitic mass] 27.5 pg 25.9 - 33.9 pg [facility] MCHC (RBC) [Mass/Vol] 30.6 g/dL Low 31.4 - 35.9 g/dL [facility] MCV (RBC) [Entitic vol] 90.1 fL 79.6 - 97.7 fL [facility] Monocytes (Bld) [#/Vol] 0.46 10*3/uL 0.22 - 0.87 K/uL [facility] Monocytes/100 WBC (Bld) 6.1 % [facility] Neutrophils (Bld) [#/Vol] 4.66 10*3/uL 1.64 - 7.28 K/uL [facility] Nucleated RBC/100 WBC (Bld) [Ratio] 0.0 % <=0.2 /100 WBC [facility] Platelet mean volume (Bld) [Entitic vol] 9.5 fL 8.5 - 12.2 fL [facility] Platelets (Bld) [#/Vol] 357 10*3/uL 150 - 393 K/uL [facility] RBC (Bld) [#/Vol] 3.74 10*6/uL Low [facility] Segmented neutrophils/100 WBC (Bld) 61.9 % [facility] WBC (Bld) [#/Vol] 7.53 10*3/uL 3.99 - 11.19 K/uL [facility] XR MYELOMA SURVEYon 09-27-19 IMPRESSION: No [...] AP Chest: No obvious displaced rib fracture. [facility] Ira Gonzalez MD - 09/26/2020 EXAM: XR [...] No discrete lytic lesions or pathologic fractures. [facility] Radiology Study observation (narrative) [facility] XR MYELOMA SURVEYOrdered By: Ira Gonzalez on 09-26-2020 [facility] Work Phone: BUN CREAon 09-21-2020 Creatinine [Mass/Vol] 1.19 mg/dL 0.50 - 1.20 mg/dL [facility] GFR/1.73 sq M.predicted MDRD (S/P/Bld) [Vol rate/Area] 47 mL/min/{1.73_m2} Low >=60 mL/min/1.73 sqM [facility] GFR/1.73 sq M.predicted MDRD (S/P/Bld) [Vol rate/Area] 57 mL/min/{1.73_m2} Low >=60 mL/min/1.73 sqM [facility] Interpretation and review of laboratory results Abnormal [facility] Urea nitrogen [Mass/Vol] 26 mg/dL High 7 - 22 mg/dL [facility] Urea nitrogen/Creatinine [Mass ratio] 22 mg/mg [facility] CBC AND ELECTRONIC DIFFon Basophils (Bld) [#/Vol] 0.05 10*3/uL 0.00 - 0.15 K/uL [facility] Basophils/100 WBC (Bld) 0.6 % [facility] DIFF STATUS Electronic Differential [facility] Eosinophils (Bld) [#/Vol] 0.24 10*3/uL 0.00 - 0.42 K/uL [facility] Eosinophils/100 WBC (Bld) 2.8 % [facility] Erythrocyte distribution width (RBC) [Ratio] 13.9 % 10.8 - 14.9 % [facility] Hematocrit (Bld) [Volume fraction] 33.5 % Low 34.9 - 44.3 % [facility] Hemoglobin (Bld) [Mass/Vol] 10.7 g/dL Low 11.4 - 15.2 g/dL [facility] Immature granulocytes (Bld) [#/Vol] 10*3/uL <=0.09 K/uL [facility] Immature granulocytes/100 WBC (Bld) 0.2 % [facility] Interpretation and review of laboratory results Abnormal [facility] Lymphocytes (Bld) [#/Vol] 2.63 10*3/uL 1.16 - 3.51 K/uL [facility] Lymphocytes/100 WBC (Bld) 30.6 % [facility] MCH (RBC) [Entitic mass] 28.1 pg 25.9 - 33.9 pg [facility] MCHC (RBC) [Mass/Vol] 31.9 g/dL 31.4 - 35.9 g/dL [facility] MCV (RBC) [Entitic vol] 87.9 fL 79.6 - 97.7 fL [facility] Monocytes (Bld) [#/Vol] 0.50 10*3/uL 0.22 - 0.87 K/uL [facility] Monocytes/100 WBC (Bld) 5.8 % [facility] Neutrophils (Bld) [#/Vol] 5.15 10*3/uL 1.64 - 7.28 K/uL [facility] Nucleated RBC/100 WBC (Bld) [Ratio] 0.0 % <=0.2 /100 WBC [facility] Platelet mean volume (Bld) [Entitic vol] 9.2 fL 8.5 - 12.2 fL [facility] Platelets (Bld) [#/Vol] 377 10*3/uL 150 - 393 K/uL [facility] RBC (Bld) [#/Vol] 3.81 10*6/uL Low [facility] Segmented neutrophils/100 WBC (Bld) 60.0 % [facility] WBC (Bld) [#/Vol] 8.59 10*3/uL 3.99 - 11.19 K/uL [facility] CBC(NO DIFF)on 09-01-2020 Erythrocyte distribution width (RBC) [Ratio] 15.0 % High 11.5-14.5 [facility] Comment on above: Performed By: #### H EMOG, CMPF, LIP2, RTSH, T42 #### Testing performed at [address] [address] Hematocrit (Bld) [Volume fraction] 39.9 % Normal 36.0-48.0 [facility] Comment on above: Performed By: #### H EMOG, CMPF, LIP2, RTSH, T42 #### Testing performed at [address] [address] Hemoglobin (Bld) [Mass/Vol] 13.3 g/dL Normal 12.0-16.0 [facility] Comment on above: Performed By: #### H EMOG, CMPF, LIP2, RTSH, T42 #### Testing performed at [address] [address] MCH (RBC) [Entitic mass] 28.3 pg Normal 26.0-35.0 [facility] Comment on above: Performed By: #### H EMOG, CMPF, LIP2, RTSH, T42 #### Testing performed at [address] [address] MCHC (RBC) [Mass/Vol] 33.4 g/dL Normal 27.0-37.0 [facility] Comment on above: Performed By: #### H EMOG, CMPF, LIP2, RTSH, T42 #### [place] [address] MCV (RBC) [Entitic vol] 84.7 fL Normal 80.0-100.0 [facility] Comment on above: Performed By: #### H EMOG, CMPF, LIP2, RTSH, T42 #### [place] [address] Platelet mean volume (Bld) [Entitic vol] 6.9 fL Low 7.4-11.0 [facility] Comment on above: Result Comment: Test ing performed at [place] [address] Performed By: #### H EMOG, CMPF, LIP2, RTSH, T42 #### [place] [address] Platelets (Bld) [#/Vol] 275 10*3/uL Normal 130.0-400.0 [facility] Comment on above: Performed By: #### H EMOG, CMPF, LIP2, RTSH, T42 #### [place] [address] RBC (Bld) [#/Vol] 4.72 10*6/uL Normal 4.0-5.4 [facility] Comment on above: Performed By: #### H EMOG, CMPF, LIP2, RTSH, T42 #### [place] [address] WBC (Bld) [#/Vol] 6.7 10*3/uL Normal 3.6-11.0 [facility] Comment on above: Performed By: #### H EMOG, CMPF, LIP2, RTSH, T42 #### [place] [address] CMP FASTINGon 09-01-2020 A:G RATIO 1.2 RATIO Low 1.3-2.2 [facility] Comment on above: Performed By: #### H EMOG, CMPF, LIP2, RTSH, T42 #### Testing performed at [address] [address] ALBUMIN 4.1 G/dl Normal 3.5-5.0 [facility] Comment on above: Performed By: #### H EMOG, CMPF, LIP2, RTSH, T42 #### Testing performed at [place] [id number] ALP [Catalytic activity/Vol] 103 U/L Normal 38-126 [facility] Comment on above: Performed By: #### H EMOG, CMPF, LIP2, RTSH, T42 #### Testing performed at [address] [address] ALT [Catalytic activity/Vol] 17 U/L Normal <35 [facility] Comment on above: Performed By: #### H EMOG, CMPF, LIP2, RTSH, T42 #### Testing performed at [place] [id number] AST [Catalytic activity/Vol] 23 U/L Normal 14-36 [facility] Comment on above: Performed By: #### H EMOG, CMPF, LIP2, RTSH, T42 #### Testing performed at [address] [address] Bilirubin [Mass/Vol] 0.1 mg/dL Low 0.2-1.3 [facility] Comment on above: Performed By: #### H EMOG, CMPF, LIP2, RTSH, T42 #### Testing performed at [address] [address] Calcium [Mass/Vol] 9.2 mg/dL Normal 8.4-10.2 [facility] Comment on above: Performed By: #### H EMOG, CMPF, LIP2, RTSH, T42 #### Testing performed at [address] [address] Chloride [Moles/Vol] 108 mmol/L High 98-107 [facility] Comment on above: Result Comment: Plea se note: Triglyceride levels of 600mg/dL or higher may positively bias chloride results by approximately 2.1 mmol Performed By: #### H EMOG, CMPF, LIP2, RTSH, T42 #### [place] [address] CO2 [Moles/Vol] 23 mmol/L Normal 22-30 [facility] Comment on above: Performed By: #### H EMOG, CMPF, LIP2, RTSH, T42 #### [place] [address] Creatinine [Mass/Vol] 1.00 mg/dL Normal 0.7-1.2 [facility] Comment on above: Performed By: #### H EMOG, CMPF, LIP2, RTSH, T42 #### [place] [address] EST. GFR, >60 Normal [facility] Comment on above: Performed By: #### H EMOG, CMPF, LIP2, RTSH, T42 #### [place] [address] EST. GFR,Non >60 Normal [facility] Comment on above: Performed By: #### H EMOG, CMPF, LIP2, RTSH, T42 #### [place] [address] GFR Information Average GFR for 50-5 9 years old = 93. 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 Kidney failure, GFR = <15. The GFR estimate is not adjusted for extreme body surface area or acute process, nor has it been validated for women or ethnic groups other than and . Testing performed at [place] [address] Performed By: #### H EMOG, CMPF, LIP2, RTSH, T42 #### [place] [address] Glucose [Mass/Vol] 193 mg/dL High 70-100 [facility] Comment on above: Result Comment: NORMAL <100 mg/dL PREDIABETES 101-126 mg/dL DIABETES 126 mg/dL or higher Performed By: #### H EMOG, CMPF, LIP2, RTSH, T42 #### [place] [address] Potassium [Moles/Vol] 5.4 mmol/L High 3.5-5.1 [facility] Comment on above: Performed By: #### H EMOG, CMPF, LIP2, RTSH, T42 #### [place] [address] Protein [Mass/Vol] 7.4 g/dL Normal 6.3-8.2 [facility] Comment on above: Performed By: #### H EMOG, CMPF, LIP2, RTSH, T42 #### [place] [address] Sodium [Moles/Vol] 140 mmol/L Normal 137-145 [facility] Comment on above: Performed By: #### H EMOG, CMPF, LIP2, RTSH, T42 #### [place] [address] Urea nitrogen [Mass/Vol] 19 mg/dL Normal 7-20 [facility] Comment on above: Performed By: #### H EMOG, CMPF, LIP2, RTSH, T42 #### [place] [address] FREE T4on 09-01-2020 Free T4 [Mass/Vol] 1.01 ng/dL Normal 0.78-2.19 [facility] Comment on above: Result Comment: Test ing performed at [place] [address] Performed By: #### H EMOG, CMPF, LIP2, RTSH, T42 #### [place] [address] HEMOGLOBIN A1Con 09-01-2020 Glucose [Mass/Vol] 232 mg/dL Normal [facility] Comment on above: Result Comment: Test ing performed at [place] [address] Performed By: #### H A1CT #### Testing performed at [address] [address] HbA1c (Bld) [Mass fraction] 9.7 % High 0-6 [facility] Comment on above: Result Comment: NORMAL <5.7% PREDIABETES 5.7-6.4% DIABETES 6.5% OR HIGHER Performed By: #### H A1CT #### Testing performed at [address] [address] LIPID PROFILEon 09-01-2020 Cholesterol [Mass/Vol] 232 mg/dL High 107-[address] [facility] Comment on above: Performed By: #### H EMOG, CMPF, LIP2, RTSH, T42 #### Testing performed at [place] [id number] Cholesterol in HDL [Mass/Vol] 51 mg/dL Normal 33-75 [facility] Comment on above: Performed By: #### H EMOG, CMPF, LIP2, RTSH, T42 #### Testing performed at [place] [id number] Cholesterol in LDL [Mass/Vol] 154 mg/dL Normal [facility] Comment on above: Performed By: #### H EMOG, CMPF, LIP2, RTSH, T42 #### Testing performed at [place] [id number] Cholesterol in VLDL [Mass/Vol] 27 mg/dL High 5.0-25 [facility] Comment on above: Performed By: #### H EMOG, CMPF, LIP2, RTSH, T42 #### Testing performed at [address] [address] Cholesterol.total/Erika sterol in HDL [Mass ratio] 4.55 {ratio} Normal [facility] Comment on above: Result Comment: RISK TOTAL/HDL RATIO MEN WOMEN 1/2 AVERAGE 3.43 3.27 AVERAGE 4.97 4.44 2X AVERAGE 9.55 7.05 3X AVERAGE 23.99 11.04 Testing performed at [place] [address] Performed By: #### H EMOG, CMPF, LIP2, RTSH, T42 #### [place] [address] Triglyceride [Mass/Vol] 133 mg/dL Normal 0-150 [facility] Comment on above: Performed By: #### H EMOG, CMPF, LIP2, RTSH, T42 #### [place] [address] MALB/CREAT RATIO,URINEon MALB/CREAT RATIO,URINE 30.9 mg MALB/g CREAT High 1.3 -30.0 [facility] Comment on above: Result Comment: Test ing performed at [place] [address] Performed By: #### M CRAT #### [place] [address] MICROALBUMIN,RANDOM URINE 23.6 mg/L High 0-16.7 [facility] Comment on above: Performed By: #### M CRAT #### [place] [address] URINE CREATININE RANDOM 76.3 MG/DL Normal [facility] Comment on above: Result Comment: NO N ORMAL VALUES ESTABLISHED FOR RANDOM SPECIMENS Performed By: #### M CRAT #### [place] [address] TSH,REFLEX FREE T4on 021 TSH,REFLEX FREE T4 6.890 uIU/ML High 0.46-4.68 [facility] Comment on above: Result Comment: Test ing performed at [place] [address] Performed By: #### H EMOG, CMPF, LIP2, RTSH, T42 #### [place] [address] CMP FASTINGon 05-15-2020 A:G RATIO 1.2 RATIO Low 1.3-2.2 [facility] Comment on above: Performed By: #### H EMOG, CMPF, LIP2, RTSH, T42 #### Testing performed at [place] [id number] ALBUMIN 4.1 G/dl Normal 3.5-5.0 [facility] Comment on above: Performed By: #### H EMOG, CMPF, LIP2, RTSH, T42 #### [place] [address] ALP [Catalytic activity/Vol] 103 U/L Normal 38-126 [facility] Comment on above: Performed By: #### H EMOG, CMPF, LIP2, RTSH, T42 #### [place] [address] ALT [Catalytic activity/Vol] 15 U/L Normal <35 [facility] Comment on above: Performed By: #### H EMOG, CMPF, LIP2, RTSH, T42 #### [place] [address] AST [Catalytic activity/Vol] 42 U/L High 14-36 [facility] Comment on above: Performed By: #### H EMOG, CMPF, LIP2, RTSH, T42 #### Testing performed at [place] [id number] Bilirubin [Mass/Vol] 0.2 mg/dL Normal 0.2-1.3 [facility] Comment on above: Performed By: #### H EMOG, CMPF, LIP2, RTSH, T42 #### Testing performed at [place] [id number] Calcium [Mass/Vol] 9.3 mg/dL Normal 8.4-10.2 [facility] Comment on above: Performed By: #### H EMOG, CMPF, LIP2, RTSH, T42 #### Testing performed at [place] [id number] Chloride [Moles/Vol] 111 mmol/L High 98-107 [facility] Comment on above: Result Comment: Vasyl hickman note: Triglyceride levels of 600mg/dL or higher may positively bias chloride results by approximately 2.1 mmol Performed By: #### H EMOG, CMPF, LIP2, RTSH, T42 #### [place] [address] CO2 [Moles/Vol] 17 mmol/L Critically low 22-30 [facility] Comment on above: Result Comment: CALL ED TO AND READ BACK BY DAVE CHATTERJEE AT 1115 ON 05.15.2020 Performed By: #### H EMOG, CMPF, LIP2, RTSH, T42 #### [place] [address] Creatinine [Mass/Vol] 1.10 mg/dL Normal 0.7-1.2 [facility] Comment on above: Performed By: #### H EMOG, CMPF, LIP2, RTSH, T42 #### [place] [address] EST. GFR, >60 Normal [facility] Comment on above: Performed By: #### H EMOG, CMPF, LIP2, RTSH, T42 #### [place] [address] EST. GFR,Non 54 ml/min/1.73sq.m Normal [facility] Comment on above: Performed By: #### H EMOG, CMPF, LIP2, RTSH, T42 #### [place] [address] GFR Information Average GFR for 50-5 9 years old = 93. 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 Kidney failure, GFR = <15. The GFR estimate is not adjusted for extreme body surface area or acute process, nor has it been validated for women or ethnic groups other than and . Testing performed at [place] [address] Performed By: #### H EMOG, CMPF, LIP2, RTSH, T42 #### [place] [address] Glucose [Mass/Vol] 190 mg/dL High 70-100 [facility] Comment on above: Result Comment: NORMAL <100 mg/dL PREDIABETES 101-126 mg/dL DIABETES 126 mg/dL or higher Performed By: #### H EMOG, CMPF, LIP2, RTSH, T42 #### [place] [address] Potassium [Moles/Vol] 3.7 mmol/L Normal 3.5-5.1 [facility] Comment on above: Performed By: #### H EMOG, CMPF, LIP2, RTSH, T42 #### [place] [address] Protein [Mass/Vol] 7.6 g/dL Normal 6.3-8.2 [facility] Comment on above: Performed By: #### H EMOG, CMPF, LIP2, RTSH, T42 #### [place] [address] Sodium [Moles/Vol] 138 mmol/L Normal 137-145 [facility] Comment on above: Performed By: #### H EMOG, CMPF, LIP2, RTSH, T42 #### [place] [address] Urea nitrogen [Mass/Vol] 24 mg/dL High 7-20 [facility] Comment on above: Performed By: #### H EMOG, CMPF, LIP2, RTSH, T42 #### [place] [address] HEMOGLOBIN A1Con 05-15-2020 Glucose [Mass/Vol] 240 mg/dL Normal [facility] Comment on above: Result Comment: Test ing performed at [place] [address] Performed By: #### H EMOG, CMPF, LIP2, RTSH, T42 #### [place] [address] HbA1c (Bld) [Mass fraction] 10.0 % High 0-6 [facility] Comment on above: Result Comment: NORMAL <5.7% PREDIABETES 5.7-6.4% DIABETES 6.5% OR HIGHER Performed By: #### H EMOG, CMPF, LIP2, RTSH, T42 #### Testing performed at [address] [address] LIPID PROFILEon 05-15-2020 Cholesterol [Mass/Vol] 228 mg/dL High 107-[address] [facility] Comment on above: Performed By: #### H EMOG, CMPF, LIP2, RTSH, T42 #### Testing performed at [address] [address] Cholesterol in HDL [Mass/Vol] 36 mg/dL Normal 33-75 [facility] Comment on above: Performed By: #### H EMOG, CMPF, LIP2, RTSH, T42 #### Testing performed at [address] [address] Cholesterol in LDL [Mass/Vol] 161 mg/dL Normal [facility] Comment on above: Performed By: #### H EMOG, CMPF, LIP2, RTSH, T42 #### Testing performed at [address] [address] Cholesterol in VLDL [Mass/Vol] 31 mg/dL High 5.0-25 [facility] Comment on above: Performed By: #### H EMOG, CMPF, LIP2, RTSH, T42 #### Testing performed at [address] [address] Cholesterol.total/Erika sterol in HDL [Mass ratio] 6.33 {ratio} Normal [facility] Comment on above: Result Comment: RISK TOTAL/HDL RATIO MEN WOMEN 1/2 AVERAGE 3.43 3.27 AVERAGE 4.97 4.44 2X AVERAGE 9.55 7.05 3X AVERAGE 23.99 11.04 Testing performed at [place], [place] [address] Performed By: #### H EMOG, CMPF, LIP2, RTSH, T42 #### Testing performed at [address] [address] Triglyceride [Mass/Vol] 157 mg/dL High 0-150 [facility] Comment on above: Performed By: #### H EMOG, CMPF, LIP2, RTSH, T42 #### Testing performed at [place] [id number] MALB/CREAT RATIO,URINEon MALB/CREAT RATIO,URINE 18.8 mg MALB/g CREAT Normal 1.3 -30.0 [facility] Comment on above: Result Comment: Test ing performed at [place] [address] Performed By: #### M CRAT #### [place] [address] MICROALBUMIN,RANDOM URINE 9.3 mg/L Normal 0-16.7 [facility] Comment on above: Performed By: #### M CRAT #### [place] [address] URINE CREATININE RANDOM 49.4 MG/DL Normal [facility] Comment on above: Result Comment: NO N ORMAL VALUES ESTABLISHED FOR RANDOM SPECIMENS Performed By: #### M CRAT #### Testing performed at [place] [id number] XR RIBS LT PA Boby 0 XR [...] by: LUIS ANDRES Date: 2020-01-27 13:26 Normal [facility] XR FINGER MIN 2 VIEWSon 11-0 XR [...] by: LUIS ANDRES Date: 2019-12-22 10:13 Normal [facility] BLOOD UREA NITROGENon 2019 Urea nitrogen [Mass/Vol] 16 mg/dL Normal 09-05 [facility] CREATININE,SERUMon 0 Creatinine [Mass/Vol] Average GFR for 50 -59 years old = 93. Normal [facility] Comment on above: Result Comment: Casino Surveillance Officer garfield Kidney disease, GFR = <60. Kidney failure, GFR = <15. The GFR estimate is not adjusted for extreme body surface area or acute process, nor has it been validated for women or ethnic groups other than and . Creatinine [Mass/Vol] mg/dL Normal [facility] Creatinine [Mass/Vol] 52 ml/min/1.73sq.m [facility] Creatinine [Mass/Vol] 1.14 mg/dL Normal 0.7-1.2 [facility] FAX REQUESTon 03-08-2019 FAX TO Normal [facility] BLOOD UREA NITROGENon 2019 Urea nitrogen [Mass/Vol] 23 mg/dL High 09-05 [facility] CREATININE,SERUMon 0 Creatinine [Mass/Vol] 38 ml/min/1.73sq.m Normal [facility] Creatinine [Mass/Vol] 47 ml/min/1.73sq.m [facility] Creatinine [Mass/Vol] Average GFR for 50 -59 years old = 93. Normal [facility] Comment on above: Result Comment: Casino Surveillance Officer garfield Kidney disease, GFR = <60. Kidney failure, GFR = <15. The GFR estimate is not adjusted for extreme body surface area or acute process, nor has it been validated for women or ethnic groups other than and . Creatinine [Mass/Vol] 1.49 mg/dL High 0.7-1.2 [facility] FAX REQUESTon 03-01-2019 FAX TO Normal [facility] US DUPLEX EXTREMITY DVT LEFT on 01-29-2019 [...] cm and may be reactive. Normal [facility] Culture,Bacterialon 01-06-20 18 Culture,Bacterial Test Name: [...] 10 F Vancomycin S 1 F Normal [facility] Comment on above: Performed By: #### C ULT ####Unless otherwise noted, all testing performed by [facility] [facility] Hospital[facility], [place] [phone]: [id number] Director: Skylar Niño M.D. Progress Noteon 12-16-2017 Protein mass conc [facility] [address] [facility] [place] [address] NAME MEG GEORGES [id number] 1965 DATE PROGRESS NOTE Meg is seen [...] it. PILI GILLIAM DPM D 12/16/2017 11:25 [id number] 12/16/2017 15:16 BJZ/MODL Electronically Signed By Pili Gilliam DPM on 17 Dec 2017 19:19:18 GMT Normal [facility] Culture,Bacterialon 12-03-19 18 Culture,Bacterial Test Name: Culture,Bacterial Site: LEFT FOOT Culture Status: Final Culture Report: Normal Rob Gram Stain: No WBC's No Squamous Epithelial Cells No Organisms Seen Micro Source: Wound drainage Normal [facility] Comment on above: Performed By: #### C ULT ####Unless otherwise noted, all testing performed by [facility] [place], [place] [phone]: [id number] Director: Skylar Niño M.D. MRI LOWER EXT JOINT W/O CONT on 11-25-2017 MRI LOWER EXT JOINT W/O CONT Final Report Accession No: [id number] Performed: Nov 25 2017 8:32AM Examination: [...] NICHOLS M.D. Trans: n/a : cc: Normal [facility] Culture,Bacterialon 11-04-19 18 Culture,Bacterial Test Name: [...] F Trimeth/Sulfa S <= 20 F Normal [facility] Comment on above: Performed By: #### C ULT ####Unless otherwise noted, all testing performed by [facility], [place] [phone]: [id number] Director: Skylar Niño M.D. Progress Noteon 08-29-2017 Protein mass conc [facility] [address] [place] [address] NAME MEG GEORGES [facility] [id number] 1965 DATE 08/29/2017 PROGRESS NOTE Ms. Georges [...] [facility]. MARK MILLER 08/29/2017 18:22 [id number] 08/30/2017 08:46 KMH/MODL Electronically Signed By Mark Anthony Mcdonald Dpm on 05 Sep 2017 23:32:42 GMT Normal [facility] Culture,Bacterialon 08-15-19 18 Culture,Bacterial Test Name: Culture,Bacterial Site: Left 1st MPJ ulcer/ celluli Culture Status: Final Culture Report: No Growth - Day 2 Gram Stain: Rare WBC's Few RBC's No Organisms Seen Micro Source: Wound Normal [facility] Comment on above: Performed By: #### C ULT #### Unless otherwise noted, all testing performed by [facility] Grow[facility] [address] [facility] [place] [place] [address] CLIA: [id number] Spud Driller: Skylar Niño M.D. Progress Noteon 06-13-2017 Protein mass conc [facility] [address] [facility] [place] [address] NAME MEG GEORGES [facility] [id number] 1965 DATE 06/13/2017 PROGRESS NOTE SUBJECTIVE Ms. [...] She related understanding. MARK MILLER 06/13/2017 10:44 [id number] 06/13/2017 11:35 KMH/MODL Electronically Signed By Mark Anthony Mcdonald Dpm on 19 Jun 2017 14:55:04 GMT Normal [facility] Consultationon 06-07-2017 Consultation [facility] [address] [place] [address] NAME MEG GEORGES [facility] [id number] 1965 DATE 04/11/2017 CONSULTATION ANIMAL CONTROL LICENSING WORKER MARTHA YAN DPM REFERRING PHYSICIAN: Neri Santa [...] any complications arise. MARK ELMORE 04/11/2017 16:16 [id number] T 04/11/2017 20:46 RCI/MODL cc: Neri Santa DO Electronically Signed By Martha Yan DPM on 16 Apr 2017 22:59:57 GMT Normal [facility] Protein mass conc [facility] [address] [place] [address] NAME MEG GEORGES [facility] [id number] 1965 DATE 06/06/2017 PROGRESS NOTE PROGRESS NOTE [...] any complications arise. MARK ELMORE 06/06/2017 22:10 [id number] 06/07/2017 08:57 RCI/MODL Electronically Signed By Martha Yan DPM on 10 Jun 2017 00:05:11 GMT Normal [facility] CBC with Diffon 06-04-2017 Basophils #/vol (Bld) 0.0 K/mcL Normal 0-0.2 [facility] Comment on above: Performed By: #### C BCDIF, CMET, EDCTNI #### Unless otherwise noted, [place] [address] CLIA: [id number] Spud Driller: Skylar Niño M.D. Basophils/100 WBC (Bld) 0.5 % Normal O [facility] Comment on above: Performed By: #### C BCDIF, CMET, EDCTNI #### Unless otherwise noted, [place] [address] CLIA: [id number] Spud Driller: Skylar Niño M.D. Eosinophils #/vol (Bld) 0.2 K/mcL Normal 0-0.[address] [facility] Comment on above: Performed By: #### C BCDIF, CMET, EDCTNI #### Unless otherwise noted, [place] [address] CLIA: [id number] Spud Driller: Skylar Niño M.D. Eosinophils/100 WBC (Bld) 2.5 % Normal [facility] Comment on above: Performed By: #### C BCDIF, CMET, EDCTNI #### Unless otherwise noted, all testing performed by [address] CLIA: [id number] Spud Driller: Skylar Niño M.D. Erythrocyte distribution width Ratio (RBC) 13.3 % Normal 10-14.[address] [facility] Comment on above: Performed By: #### C BCDIF, CMET, EDCTNI #### Unless otherwise noted, [place] [address] CLIA: [id number] Spud Driller: Skylar Niño M.D. Hematocrit Volume Fraction (Bld) 39.7 % Normal 34.4-44.[address] [facility] Comment on above: Performed By: #### C BCDIF, CMET, EDCTNI #### Unless otherwise noted, [place] [address] CLIA: [id number] Spud Driller: Skylar Niño M.D. Hemoglobin mass conc (Bld) 13.3 g/dL Normal 11.6-15.[address] [facility] Comment on above: Performed By: #### C BCDIF, CMET, EDCTNI #### Unless otherwise noted, all testing performed by [address] CLIA: [id number] Spud Driller: Skylar Niño M.D. Lymphocytes #/vol (Bld) 4.0 K/mcL High 1.0-3.7 [facility] Comment on above: Performed By: #### C BCDIF, CMET, EDCTNI #### Unless otherwise noted, all testing performed by [address] CLIA: [id number] Spud Driller: Skylar Niño M.D. Lymphocytes/100 WBC (Bld) 42.6 % Normal [facility] Comment on above: Performed By: #### C BCDIF, CMET, EDCTNI #### Unless otherwise noted, all testing performed by [place] [address] CLIA: [id number] Spud Driller: Skylar Niño M.D. MCH Entitic mass (RBC) 30.1 pg Normal 27.9-33.9 [facility] Comment on above: Performed By: #### C BCDIF, CMET, EDCTNI #### Unless otherwise noted, [place] [address] CLIA: [id number] Spud Driller: Skylar Niño M.D. MCHC mass conc (RBC) 33.6 g/dL Normal 33.1-35.1 [facility] Comment on above: Performed By: #### C BCDIF, CMET, EDCTNI #### Unless otherwise noted, [place] [address] CLIA: [id number] Spud Driller: Skylar Niño M.D. MCV Entitic volume (RBC) 89.7 fL Normal 82.6-98.[address] [facility] Comment on above: Performed By: #### C BCDIF, CMET, EDCTNI #### Unless otherwise noted, [place] [address] CLIA: [id number] Spud Driller: Skylar Niño M.D. Monocytes #/vol (Bld) 0.6 K/mcL Normal 0.1-0.6 [facility] Comment on above: Performed By: #### C BCDIF, CMET, EDCTNI #### Unless otherwise noted, [place] [address] CLIA: [id number] Spud Driller: Skylar Niño M.D. Monocytes/100 WBC (Bld) 5.9 % Normal O [facility] Comment on above: Performed By: #### C BCDIF, CMET, EDCTNI #### Unless otherwise noted, [place] [address] CLIA: [id number] Spud Driller: Skylar Niño M.D. Neutrophils #/vol (Bld) 4.6 K/mcL Normal 1.2-6.[address] [facility] Comment on above: Performed By: #### C BCDIF, CMET, EDCTNI #### Unless otherwise noted, [place] [address] CLIA: [id number] Spud Driller: Skylar Niño M.D. Platelet mean volume Entitic volume (Bld) 6.9 fL Low 7.0-10.[address] [facility] Comment on above: Performed By: #### C BCDIF, CMET, EDCTNI #### Unless otherwise noted, [place] [address] CLIA: [id number] Spud Driller: Skylar Niño M.D. Platelets #/vol (Bld) 377 K/mcL Normal 162-402 [facility] Comment on above: Performed By: #### C BCDIF, CMET, EDCTNI #### Unless otherwise noted, [place] [address] CLIA: [id number] Spud Driller: Skylar Niño M.D. RBC #/vol (Bld) 4.42 M/mcL Normal 3.7-5.0 [facility] Comment on above: Performed By: #### C BCDIF, CMET, EDCTNI #### Unless otherwise noted, [place] [address] CLIA: [id number] Spud Driller: Skylar Niño M.D. Segmented Neut % 48.5 % Normal [facility] Comment on above: Performed By: #### C BCDIF, CMET, EDCTNI #### Unless otherwise noted, [place] [address] CLIA: [id number] Spud Driller: Skylar Niño M.D. WBC #/vol (Bld) 9.5 K/mcL Normal 3.4-10.6 [facility] Comment on above: Performed By: #### C BCDIF, CMET, EDCTNI #### Unless otherwise noted, [place] [address] CLIA: [id number] Spud Driller: Skylar Niño M.D. Comprehensive Metabolic Pane cheryl 06-04-2017 Albumin mass conc 3.8 g/dL Normal 3.2-5.[address] [facility] Comment on above: Performed By: #### C BCDIF, CMET, EDCTNI #### Unless otherwise noted, [place] [address] CLIA: [id number] Spud Driller: Skylar Niño M.D. ALP enzyme act/vol 128 U/L Normal 40-150 [place] [facility] Comment on above: Performed By: #### C BCDIF, CMET, EDCTNI #### Unless otherwise noted, [place] [address] CLIA: [id number] Spud Driller: Skylar Niño M.D. ALT enzyme act/vol 43 U/L Normal 14-65 [facility] Comment on above: Result Comment: This test result might be falsely depressed or falsely elevated on samples drawn from patients taking Sulfasalazine and Sulfapyridine. Venipuncture should occur prior to taking either of these drugs. Performed By: #### C BCDIF, CMET, EDCTNI #### Unless otherwise noted, [place] [address] CLIA: [id number] Spud Driller: Skylar Niño M.D. AST enzyme act/vol 20 U/L Normal 0-45 [facility] Comment on above: Result Comment: This test result might be falsely depressed or falsely elevated on samples drawn from patients taking Sulfasalazine and Sulfapyridine. Venipuncture should occur prior to taking either of these drugs. Performed By: #### C BCDIF, CMET, EDCTNI #### Unless otherwise noted, [place] [address] CLIA: [id number] Spud Driller: Skylar Niño M.D. Bilirubin mass conc 0.3 mg/dL Normal 0.3-1.2 [facility] Comment on above: Performed By: #### C BCDIF, CMET, EDCTNI #### Unless otherwise noted, [place] [address] CLIA: [id number] Spud Driller: Skylar Niño M.D. Calcium mass conc 9.4 mg/dL Normal 8.4-10.[address] [facility] Comment on above: Performed By: #### C BCDIF, CMET, EDCTNI #### Unless otherwise noted, all testing performed by [place] [phone] CLIA: [id number] Spud Driller: Skylar Niño M.D. Chloride molar conc 100 mmol/L Normal 98-108 [facility] Comment on above: Performed By: #### C BCDIF, CMET, EDCTNI #### Unless otherwise noted, [place] [address] CLIA: [id number] Spud Driller: Skylar Niño M.D. CO2 molar conc 26 mmol/L Normal 21-[address] [facility] Comment on above: Performed By: #### C BCDIF, CMET, EDCTNI #### Unless otherwise noted, [place] [address] CLIA: [id number] Spud Driller: Skylar Niño M.D. Creatinine mass conc 1.10 mg/dL Normal 0.40-1.10 [facility] Comment on above: Performed By: #### C BCDIF, CMET, EDCTNI #### Unless otherwise noted, [place] [address] CLIA: [id number] Spud Driller: Skylar Niño M.D. GFR/1.73 sq M predicted among blacks MDRD vol rate/area (S/P/Bld) mL/min/{1.73_m2} Normal [facility] Comment on above: Result Comment: Afri can Maltese GFR Calc Performed By: #### C BCDIF, CMET, EDCTNI #### Unless otherwise noted, [place] [address] CLIA: [id number] Spud Driller: Skylar Niño M.D. GFR/1.73 sq M predicted among non-blacks MDRD vol rate/area (S/P/Bld) 52 mL/min/{1.73_m2} Low >60 [facility] Comment on above: Result Comment: Non- [...] Unless otherwise noted, [place] [address] CLIA: [id number] Spud Driller: Skylar Niño M.D. Glucose mass conc 244 mg/dL High 70-[address] [facility] Comment on above: Result Comment: This test result might be falsely depressed or falsely elevated on samples drawn from patients taking Sulfasalazine and Sulfapyridine. Venipuncture should occur prior to taking either of these drugs. Performed By: #### C BCDIF, CMET, EDCTNI #### Unless otherwise noted, all testing performed by [address] [place] [address] CLIA: [id number] Spud Driller: Skylar Niño M.D. Potassium molar conc 4.2 mmol/L Normal 3.5-5.1 [facility] Comment on above: Performed By: #### C BCDIF, CMET, EDCTNI #### Unless otherwise noted, [place] [address] CLIA: [id number] Spud Driller: Skylar Niño M.D. Protein mass conc 7.8 g/dL Normal 6.0-8.[address] [facility] Comment on above: Performed By: #### C BCDIF, CMET, EDCTNI #### Unless otherwise noted, [place] [address] CLIA: [id number] Spud Driller: Skylar Niño M.D. Sodium molar conc 135 mmol/L Normal 135-[address] [facility] Comment on above: Performed By: #### C BCDIF, CMET, EDCTNI #### Unless otherwise noted, [place] [address] CLIA: [id number] Spud Driller: Skylar Niño M.D. Urea nitrogen mass conc 15 mg/dL Normal 8-25 [facility] Comment on above: Performed By: #### C BCDIF, CMET, EDCTNI #### Unless otherwise noted, [place] [address] CLIA: [id number] Spud Driller: Skylar Niño M.D. ED Cardiac Troponin-Ion 04- Troponin I.cardiac mass conc ng/mL Normal < [address] [facility] Comment on above: Result Comment: Elev [...] Unless otherwise noted, all testing performed by [address] [address] CLIA: [id number] Spud Driller: Skylar Niño M.D. RIBS UNILATERALon 06-04-2017 RIBS UNILATERAL Final Report Accession No: [id number] Performed: Jun 04 2017 9:56PM Examination: [...] TANNER M.D. Trans: istumb : cc: Normal [facility] Culture,Bacterialon 04-23-19 Culture,Bacterial Test Name: Culture,Bacterial [...] F Vancomycin S <= 0.5 F Normal [facility] Comment on above: Performed By: #### C ULT #### Unless otherwise noted, all testing performed by [address] [place], [place] [address] CLIA: [id number] Spud Driller: Skylar Niño M.D. Progress Noteon 04-22-2017 Protein mass conc [facility] [address] [facility]. [place] [id number] NAME MEG GEORGES [id number] 1965 DATE PROGRESS NOTE Meg seen today [...] in a week. MARK MARQUEZ 04/22/2017 12:51 [id number] T 04/22/2017 16:19 BJZ/MODL Electronically Signed By Pili Gilliam DPM on 23 Apr 2017 17:35:14 GMT Normal [facility] Culture,Bacterialon 04-19-19 18 Culture,Bacterial Test Name: [...] 10 F Vancomycin S 1 F Normal [facility] Comment on above: Performed By: #### C ULT #### Unless otherwise noted, all testing performed by [facility] [address] [facility] [place] [address] CLIA: [id number] Spud Driller: Skylar Niño M.D. Vital Signs Date Time Vital Sign Value Performing Clinician Alejandro douglas 08-10-2021 20:30-0400 Diastolic blood pressure 88 mm[Hg] Anthony Pedrozar DO Work Phone: [facility] [employer] 08-10-2021 20:30-0400 Heart rate 88 /min Anthony Baezuger DO Work Phone: [facility] [employer] 08-10-2021 20:30-0400 Respiratory rate 18 /min Anthony Pedrozar DO Work Phone: [facility] [employer] 08-10-2021 20:30-0400 SaO2% (BldA) [Mass fraction] 100 % Anthony Pedrozar DO Work Phone: [facility] [employer] 08-10-2021 20:30-0400 Systolic blood pressure 144 mm[Hg] Anthony Baezuger DO Work Phone: [facility] [employer] 08-10-2021 18:00-0400 Body temperature 100 [degF] Anthony Pedrozar DO Work Phone: [facility] [employer] 08-10-2021 13:33-0400 Body height 165.1 cm Anthony Pedrozar DO Work Phone: [facility] [employer] 08-08-2021 06:00-0400 Body mass index (BMI) [Ratio] 21.72 kg/m2 Anthony Pedrozar DO Work Phone: [facility] [employer] 08-08-2021 06:00-0400 Body weight 59.2 kg Anthony Pedrozar DO Work Phone: [facility] [employer] 07-14-2021 14:00-0400 Diastolic blood pressure 79 mm[Hg] Anthony Villarreal MD Work Phone: [facility] [employer] 07-14-2021 14:00-0400 Heart rate 100 /min Anthony Villarreal MD Work Phone: [facility] [employer] 07-14-2021 14:00-0400 SaO2% (BldA) [Mass fraction] 94 % Anthony [facility]real MD [facility] 07-14-2021 14:00-0400 Systolic blood pressure 143 mm[Hg] Anthony [facility]real MD [facility] 07-14-2021 11:15-0400 Respiratory rate 16 /min Anthony [facility]real MD [facility] 07-13-2021 20:37-0400 Body height 165.1 cm Anthony Vill[facility]real MD [facility] 07-13-2021 20:37-0400 Body mass index (BMI) [Ratio] 23.3 kg/m2 Anthony Villarreal MD [facility] 07-13-2021 20:37-0400 Body weight 63.5 kg Anthony Villarreal MD [facility] 07-13-2021 20:20-0400 Body temperature 97.5 [degF] Anthony [facility]real MD [facility] 07-10-2021 10:55-0400 Body temperature 97.81 [degF] Wil Martinez MD [facility] 07-10-2021 10:55-0400 Diastolic blood pressure 54 mm[Hg] Wil Martinez MD Work Phone: [facility] [employer] 07-10-2021 10:55-0400 Heart rate 88 /min Wil Martinez MD [facility] 07-10-2021 10:55-0400 Respiratory rate 14 /min Wil Martinez MD Work Phone: [facility] [employer] 07-10-2021 10:55-0400 SaO2% (BldA) [Mass fraction] 98 % Wil Martinez MD [facility] 07-10-2021 10:55-0400 Systolic blood pressure 102 mm[Hg] Wil Martinez MD [facility] 07-10-2021 06:00-0400 Body mass index (BMI) [Ratio] 26.91 kg/m2 Wil Martinez MD [facility] 07-10-2021 06:00-0400 Body weight 73.35 kg Wil Martinez MD [facility] 07-05-2021 15:43-0400 Body height 165.1 cm Wil Martinez MD [facility] 06-28-2021 09:45-0400 Diastolic blood pressure 85 mm[Hg] Chris Boothe MD Work Phone: [employer] 06-28-2021 09:45-0400 Heart rate 106 /min Chris Boothe MD Work Phone: [employer] 06-28-2021 09:45-0400 Respiratory rate 25 /min Chris Boothe MD Work Phone: [employer] 06-28-2021 09:45-0400 SaO2% (BldA) [Mass fraction] 98 % Chris Boothe MD Work Phone: [employer] 06-28-2021 09:45-0400 Systolic blood pressure 180 mm[Hg] Chris Boothe MD Work Phone: [employer] 06-28-2021 07:41-0400 Body mass index (BMI) [Ratio] 24.13 kg/m2 Chris Boothe MD Work Phone: [employer] 06-28-2021 07:41-0400 Body weight 65.77 kg Chris Boothe MD Work Phone: [employer] 06-28-2021 03:49-0400 Body temperature 97.9 [degF] Chris Boothe MD Work Phone: [facility] 05-11-2021 15:31-0400 Diastolic blood pressure 63 mm[Hg] [facility] 05-11-2021 15:31-0400 Heart rate 84 /min [facility] 05-11-2021 15:31-0400 Respiratory rate 16 /min [facility] 05-11-2021 15:31-0400 Systolic blood pressure 132 mm[Hg] [address] 05-11-2021 13:31-0400 Body temperature 97.2 [degF] [address] 05-01-2021 14:36-0400 Body mass index (BMI) [Ratio] 25.81 kg/m2 Tia Baugh PA-C Work Phone: [facility] 05-01-2021 14:36-0400 Body temperature 98.29 [degF] Tia Baugh PA-C Work Phone: [facility] 05-01-2021 14:36-0400 Body weight 70.35 kg Tia Baugh PA-C Work Phone: [facility] 05-01-2021 14:36-0400 Diastolic blood pressure 88 mm[Hg] Tia Abugh PA-C Work Phone: [facility] 05-01-2021 14:36-0400 Heart rate 77 /min Tia Baugh PA-C Work Phone: [facility] 05-01-2021 14:36-0400 Respiratory rate 16 /min Tia Baugh PA-C Work Phone: [facility] 05-01-2021 14:36-0400 SaO2% (BldA) [Mass fraction] 97 % Tia Baugh PA-C Work Phone: [facility] 05-01-2021 14:36-0400 Systolic blood pressure 137 mm[Hg] Tia Baugh PA-C Work Phone: [facility] 04-17-2021 11:06-0500 Diastolic blood pressure 79 mm[Hg] Jef Mariela Jr., DPM Work Phone: [facility] 04-17-2021 11:06-0500 Heart rate 99 /min Jef Mariela Jr., DPM Work Phone: [facility] 04-17-2021 11:06-0500 Systolic blood pressure 123 mm[Hg] Jef Mariela Jr., DPM Work Phone: [facility] 04-17-2021 10:49-0500 Body temperature 98.2 [degF] Jef Mariela Jr., DPM Work Phone: [facility] 03-27-2021 11:06-0500 Body temperature 97.9 [degF] Jef Mariela Jr., DPM Work Phone: [facility] 03-27-2021 11:06-0500 Diastolic blood pressure 88 mm[Hg] Jef Mariela Jr., DPM Work Phone: [facility] 03-27-2021 11:06-0500 Heart rate 89 /min Jef Mariela Jr., DPM Work Phone: [facility] 03-27-2021 11:06-0500 Systolic blood pressure 146 mm[Hg] Jef Mariela Jr., DPM Work Phone: [facility] 02-20-2021 09:55-0500 Diastolic blood pressure 85 mm[Hg] Jef Mariela Jr., DPM Work Phone: [facility] 02-20-2021 09:55-0500 Heart rate 89 /min Jef Mariela Jr., DPM Work Phone: [facility] 02-20-2021 09:55-0500 Systolic blood pressure 154 mm[Hg] Jef Mariela Jr., DPM Work Phone: [facility] 02-20-2021 09:52-0500 Body temperature 97.59 [degF] Jef Mariela Jr., DPM Work Phone: [facility] 2021 11:17-0500 Body temperature 97.7 [degF] Jef Mariela Jr., DPM Work Phone: [facility] 2021 11:17-0500 Diastolic blood pressure 80 mm[Hg] Jef Mariela Jr., DPM Work Phone: [facility] 2021 11:17-0500 Heart rate 96 /min Jef Mariela Jr., DPM Work Phone: [facility] 2021 11:17-0500 Systolic blood pressure 157 mm[Hg] Jef Mariela Jr., DPM Work Phone: [facility] 01-30-2021 10:31-0500 Body temperature 98.4 [degF] Jef Mariela Jr., DPM Work Phone: [facility] 01-30-2021 10:31-0500 Diastolic blood pressure 81 mm[Hg] Jef Mariela Jr., DPM Work Phone: [facility] 01-30-2021 10:31-0500 Heart rate 98 /min Jef Mariela Jr., DPM Work Phone: [facility] 01-30-2021 10:31-0500 Systolic blood pressure 156 mm[Hg] Jef Mariela Jr., DPM Work Phone: [facility] 01-24-2021 15:58-0500 Body temperature 97.7 [degF] Jef Mariela Jr., DPM Work Phone: [facility] 01-24-2021 15:58-0500 Diastolic blood pressure 80 mm[Hg] Jef Mariela Jr., DPM Work Phone: [facility] 01-24-2021 15:58-0500 Heart rate 101 /min Jef Mariela Jr., DPM Work Phone: [facility] 01-24-2021 15:58-0500 Systolic blood pressure 163 mm[Hg] Jef Mariela Jr., DPM Work Phone: [facility] 01-16-2021 10:58-0500 Body temperature 97.7 [degF] Jef Mariela Jr., DPM Work Phone: [facility] 01-16-2021 10:58-0500 Diastolic blood pressure 83 mm[Hg] Jef Mariela Jr., DPM Work Phone: [facility] 01-16-2021 10:58-0500 Heart rate 102 /min Jef Mariela Jr., DPM Work Phone: [facility] 01-16-2021 10:58-0500 Systolic blood pressure 143 mm[Hg] Ejf Mariela Jr., DPM Work Phone: [facility] 01-09-2021 08:43-0500 Body temperature 97.2 [degF] Jef Mariela Jr., DPM Work Phone: [facility] 01-09-2021 08:43-0500 Diastolic blood pressure 81 mm[Hg] Jef Mariela Jr., DPM Work Phone: [facility] 01-09-2021 08:43-0500 Heart rate 99 /min Jef Mariela Jr., DPM Work Phone: [facility] 01-09-2021 08:43-0500 Systolic blood pressure 156 mm[Hg] Jef Mariela Jr., DPM Work Phone: [facility] 01-02-2021 09:09-0500 Body temperature 97.7 [degF] Jef Mairela Jr., DPM Work Phone: [facility] 01-02-2021 09:09-0500 Diastolic blood pressure 85 mm[Hg] Jef Mariela Jr., DPM Work Phone: [facility] 01-02-2021 09:09-0500 Heart rate 83 /min Jef Mariela Jr., DPM Work Phone: [facility] 01-02-2021 09:09-0500 Systolic blood pressure 149 mm[Hg] Jef Mariela Jr., DPM Work Phone: [facility] 12-19-2020 11:17-0400 Body height 165.1 cm Jef Mariela Jr., DPM Work Phone: [facility] 12-19-2020 11:17-0400 Body mass index (BMI) [Ratio] 25.46 kg/m2 Jef Mariela Jr., DPM Work Phone: [facility] 12-19-2020 11:17-0400 Body temperature 97.2 [degF] Jef Mariela Jr., DPM Work Phone: [facility] 12-19-2020 11:17-0400 Body weight 69.4 kg Jef Mariela Jr., DPM Work Phone: [facility] 12-19-2020 11:17-0400 Diastolic blood pressure 84 mm[Hg] Jef Mariela Jr., DPM Work Phone: [facility] 12-19-2020 11:17-0400 Heart rate 111 /min Jef Mariela Jr., DPM Work Phone: [facility] 12-19-2020 11:17-0400 Systolic blood pressure 144 mm[Hg] Jef Mariela Jr., DPM Work Phone: [facility] 10-17-2020 08:11-0400 Body height 153.7 cm Jef Mariela Jr., DPM Work Phone: [facility] 10-17-2020 08:11-0400 Body mass index (BMI) [Ratio] 29.39 kg/m2 Jef Mariela Ahmadi, DPM Work Phone: [facility] 10-17-2020 08:11-0400 Body temperature 97.2 [degF] Jef Mariela Guzman., DPM Work Phone: [facility] 10-17-2020 08:11-0400 Body weight 69.4 kg Jef Vieiracheryl Ahmadi, DPM Work Phone: [facility] 10-17-2020 08:11-0400 Diastolic blood pressure 79 mm[Hg] Jef Vieiracheryl Ahmadi, DPM Work Phone: [facility] 10-17-2020 08:11-0400 Heart rate 82 /min Jef Mariela Ahmadi, DPM Work Phone: [facility] 10-17-2020 08:11-0400 Systolic blood pressure 133 mm[Hg] Jef Mariela Ahmadi, DPM Work Phone: [facility] 10-03-2020 11:22-0400 Diastolic blood pressure 83 mm[Hg] [address] 10-03-2020 11:22-0400 Heart rate 84 /min [address] 10-03-2020 11:22-0400 Respiratory rate 16 /min [address] 10-03-2020 11:22-0400 Systolic blood pressure 174 mm[Hg] [address] 10-03-2020 09:15-0400 Body temperature 97.9 [degF] [address] 09-26-2020 11:50-0400 Body height 165.1 cm Franck Mtz MD Work Phone: [facility] 09-26-2020 11:50-0400 Body mass index (BMI) [Ratio] 25.96 kg/m2 Franck Mtz MD Work Phone: [facility] 09-26-2020 11:50-0400 Body weight 70.76 kg Franck Mtz MD Work Phone: [facility] 09-26-2020 11:50-0400 Diastolic blood pressure 67 mm[Hg] Franck Mtz MD Work Phone: [facility] 09-26-2020 11:50-0400 Heart rate 105 /min Franck Mtz MD Work Phone: [facility] 09-26-2020 11:50-0400 Systolic blood pressure 142 mm[Hg] Franck Mtz MD Work Phone: [facility] 09-21-2020 13:31-0400 Diastolic blood pressure 68 mm[Hg] [address] 09-21-2020 13:31-0400 Heart rate 89 /min [address] 09-21-2020 13:31-0400 Respiratory rate 16 /min [address] 09-21-2020 13:31-0400 Systolic blood pressure 154 mm[Hg] [address] 09-21-2020 11:36-0400 Body temperature 97.9 [degF] [address] 09-14-2020 14:39-0400 Body temperature 99.39 [degF] Jef Sierra Jr., DPM Work Phone: [facility] 09-14-2020 14:39-0400 Diastolic blood pressure 85 mm[Hg] Jef Sierra Jr., DPM Work Phone: [facility] 09-14-2020 14:39-0400 Heart rate 98 /min Jef Sierra Jr., DPM Work Phone: [facility] 09-14-2020 14:39-0400 Systolic blood pressure 145 mm[Hg] Jef Sierra Jr., DPM Work Phone: [facility] 09-13-2020 09:34-0400 Body height 165.1 cm Luis Miguel Kaur MD Work Phone: [facility] 09-13-2020 09:34-0400 Body mass index (BMI) [Ratio] 25.66 kg/m2 Luis Miguel Kaur MD Work Phone: [facility] 09-13-2020 09:34-0400 Body weight 69.94 kg Luis Miguel Kaur MD Work Phone: [facility] 09-13-2020 09:34-0400 Diastolic blood pressure 74 mm[Hg] Luis Miguel Kaur MD Work Phone: [facility] 09-13-2020 09:34-0400 Heart rate 89 /min Luis Miguel Kaur MD Work Phone: [facility] 09-13-2020 09:34-0400 Systolic blood pressure 158 mm[Hg] Luis Miguel Kaur MD Work Phone: [facility] 04-18-2020 08:16-0500 Body height 153.7 cm Jef Sierra Jr., DPM Work Phone: [facility] 04-18-2020 08:16-0500 Body mass index (BMI) [Ratio] 29.39 kg/m2 Jef Sierra Jr., DPM Work Phone: [facility] 04-18-2020 08:16-0500 Body weight 69.4 kg Jef Sierra Jr., DPM Work Phone: [facility] 04-18-2020 08:16-0500 Diastolic blood pressure 86 mm[Hg] Jef Sierra Jr., DPM Work Phone: [facility] 04-18-2020 08:16-0500 Systolic blood pressure 136 mm[Hg] Jef Sierra Jr., DPM Work Phone: [facility] 05-29-2018 09:31-0400 BMI (Body Mass Index) 25.29 kg/m2 [facility] 05-29-2018 09:31-0400 Body Temperature 98.4 [degF] [facility] 05-29-2018 09:31-0400 BP Diastolic 90 mm[Hg] [facility] 05-29-2018 09:31-0400 BP Systolic 159 mm[Hg] [facility] 05-29-2018 09:31-0400 Height 165.1 cm [facility] 05-29-2018 09:31-0400 Pulse (Heart Rate) 102 /min [facility] 05-29-2018 09:31-0400 Pulse Oximetry 100 % [facility] 05-29-2018 09:31-0400 Respiratory Rate 16 /min [facility] 05-29-2018 09:31-0400 Weight 68.95 kg [facility] 01-01-2018 14:05-0500 BMI (Body Mass Index) 25.07 kg/m2 [facility] Work Phone: 01-01-2018 14:05-0500 BP Diastolic 75 mm[Hg] [facility] Work Phone: 01-01-2018 14:05-0500 BP Systolic 121 mm[Hg] [facility] Work Phone: 01-01-2018 14:05-0500 Height 166.4 cm [facility] Work Phone: 01-01-2018 14:05-0500 Pulse (Heart Rate) 108 /min [facility] Work Phone: 01-01-2018 14:05-0500 Weight 69.4 kg [facility] Work Phone: 04-07-2017 12:24-0500 BP Diastolic 67 mm[Hg] Reji Miramontes [facility] 04-07-2017 12:24-0500 BP Systolic 100 mm[Hg] Reji Miramontes [facility] 04-07-2017 12:24-0500 Pulse (Heart Rate) 98 /min Reji Miramontes [facility] 04-07-2017 12:22-0500 BMI (Body Mass Index) 26.49 kg/m2 Re[facility]ontes [facility] [place] 04-07-2017 12:22-0500 Height 165.1 cm Reji Miramontes [facility] [place] 04-07-2017 12:22-0500 Respiratory Rate 16 /min Reji Miramontes [facility] [place] 04-07-2017 12:22-0500 Weight 72.21 kg Reji Miramontes [facility] [place] Encounters Encounter Date Encounter Type Care Provider Facility Start: 09-27-2024 End: 09-27-2024 Bamboo flowsheet Skylar Whitfield DO Work Phone: [facility] Start: 09-27-2024 End: 09-27-2024 Bamboo flowsheet Skylar Whitfield DO Work Phone: [facility] Start: 09-27-2024 End: 09-27-2024 ambulatory SKYLAR WHITFIELD Not Available Start: 08-27-2024 End: 08-27-2024 Bamboo flowsheet Ramona Northeim PA Work Phone: [facility] Start: 08-27-2024 End: 08-27-2024 Bamboo flowsheet Ramona Northeim PA Work Phone: [facility] Start: 08-27-2024 End: 09-06-2024 Orders Only Ramona Northeim PA Work Phone: [facility] External Department Unsolicited Start: 08-27-2024 End: 08-27-2024 Office outpatient visit 25 minutes Ramona Northeim PA Work Phone: [facility] Comment on above: Other atopic [...] 04-16-2024 Emergency department patient visit Garfield Rodriguez Facility:[facility] Start: 02-23-2024 ambulatory Jami L Jemima Facility: [facility] [place] Start: 11-21-2023 End: 11-21-2023 ambulatory Jami L Jemima Facility:[facility] [place] Start: 10-24-2023 End: 10-24-2023 ambulatory Jami L Jemima Facility:[facility] Start: 10-10-2023 ambulatory Jami Jemima [facility] Start: 05-27-2023 End: 05-27-2023 ambulatory ALAA ALAHMAD Facility:[facility] Start: 03-29-2023 Clinisync Result Encounter Rufus hSen MD Work Phone: [facility] External [facility] Unsolicited Start: 03-29-2023 Clinisync Result Encounter Rufus Shen MD Work Phone: [facility] External Department Unsolicited Start: 11-22-2022 End: 11-25-2022 ambulatory GANGA SAVAGE [facility] Start: 04-02-2022 End: 04-05-2022 ambulatory ALISIA VAISHALI ALISIA [facility] Start: 04-02-2022 End: 04-04-2022 Subsequent hospital visit by physician Vineet McH Xr [facility] Comment on above: S/P cervical spinal fusion Start: 12-04-2021 End: 12-06-2021 Subsequent hospital visit by physician Vineet C-Arm 1 [facility] Comment on above: Atlantoaxial instabi lity; S/P cervical spinal fusion Start: 11-22-2021 End: 11-22-2021 ambulatory Rufus Shen Facility:[facility] Start: 11-22-2021 End: 11-22-2021 ambulatory II Rufus Shen Work Phone: [facility] Work Phone: Start: 11-22-2021 End: 11-22-2021 Departed Referred II Rufus Shen Work Phone: [facility] [place] Start: 08-20-2021 End: 08-22-2021 Evaluation and management of inpatient JERRY POZO Facility:[facility] Start: 07-14-2021 End: 08-10-2021 Evaluation and management of inpatient Anthony Lucero DO Work Phone: [facility] Start: 07-13-2021 End: 07-14-2021 Emergency department patient visit Anthony Villarreal MD Work Phone: [facility] ED Comment on above: COVID-19 (Primary Dx ); Pneumonia of left lower lobe due to infectious organism; Hypokalemia; Hypomagnesemia; jail (current) use of antibiotics Start: 06-28-2021 End: 07-10-2021 Evaluation and management of inpatient Wil Martinez MD Work Phone: [facility] Start: 06-28-2021 End: 06-28-2021 Emergency department patient visit Chris Boothe MD Work Phone: [facility] ED Comment on above: Non-intractable vomi ting with nausea, unspecified vomiting type (Primary Dx); Altered mental status, unspecified altered mental status type; Leukocytosis, unspecified type Start: 05-18-2021 End: 05-29-2021 Evaluation and management of inpatient [facility] Start: 05-18-2021 End: 05-18-2021 Emergency department patient visit NERI SANTA [facility] Start: 05-15-2021 ambulatory NERI Parker [facility] Start: 05-11-2021 ambulatory SANIA WELDON Facility: [facility] Start: 05-11-2021 End: 05-11-2021 ambulatory [id number] Start: 05-11-2021 End: 05-11-2021 Patient encounter procedure Sania Weldon DO Work Phone: [facility] Comment on above: CIDP (chronic inflam matory demyelinating polyneuropathy) (Primary Dx) Start: 05-07-2021 ambulatory NERI SANTA Facilit y:[facility] Start: 05-01-2021 End: 05-01-2021 ambulatory NERI Eelna SANTA [facility] Start: 05-01-2021 End: 05-01-2021 Office outpatient visit 15 minutes Tia Baugh PA-C Work Phone: [facility] [place] [place] Comment on above: Partial thickness bu rn of single finger of right hand excluding thumb, initial encounter (Primary Dx); Wound infection; Laceration of right thumb, initial encounter Start: 04-25-2021 ambulatory NERI SANTA Facilit y:[facility] Start: 04-17-2021 End: 04-17-2021 ambulatory JEF SIERRA JR. [facility] Start: 04-17-2021 End: 04-17-2021 Office outpatient visit 15 minutes Jef Sierra DPM Work Phone: [facility] [place] Comment on above: Chronic ulcer of gre at toe of left foot with fat layer exposed (HCC) (Primary Dx) Start: 04-12-2021 ambulatory NERI SANTA Facilit y:[facility] Start: 04-12-2021 ambulatory NERI SANTA Facilit y:[facility] Start: 04-06-2021 End: 04-06-2021 Evaluation and management of inpatient PCP PCP UNKNOWN~[phone] PHYSICIAN PHYSICIAN [facility] Start: 04-06-2021 End: 04-07-2021 Evaluation and management of inpatient VAISHALI SLIMAN [facility] Start: 04-05-2021 ambulatory NERI SANTA Facilit y:[facility] Start: 03-27-2021 End: 03-27-2021 ambulatory JEF SIERRA JR. [facility] Start: 03-27-2021 End: 03-27-2021 Office outpatient visit 15 minutes Jef Sierra DPM Work Phone: [facility] [place] [facility] Comment on above: Chronic ulcer of gre at toe of left foot with fat layer exposed (HCC) (Primary Dx) Start: 03-07-2021 ambulatory KRYSTYNA BUSBY Facility :[facility] Start: 03-06-2021 End: 03-06-2021 ambulatory JEFDAVID SIERRA JR. [facility] Start: 03-01-2021 ambulatory NERI P HOUSE Facilit y:[facility] Start: 02-21-2021 ambulatory NERI P HOUSE Facilit y:[facility] Start: 02-20-2021 End: 02-20-2021 ambulatory JEFCynthia SIERRA JR. [facility] Start: 02-20-2021 End: 02-20-2021 Patient encounter procedure Jef Sierra DPM Work Phone: [facility] [place] [facility] Comment on above: Chronic ulcer of gre at toe of left foot with fat layer exposed (HCC) Start: 02-15-2021 ambulatory NERI P HOUSE Facilit y:[facility] Start: 02-14-2021 ambulatory NERI P HOUSE Facilit y:[facility] Start: 02-12-2021 ambulatory NERI P HOUSE Facilit y:[facility] Start: 02-07-2021 ambulatory NERI P HOUSE Facilit y:[facility] Start: 2021 End: 2021 ambulatory JEF SIERRA JR. [facility] Start: 2021 End: 2021 Patient encounter procedure Jef Sierra DPM Work Phone: [facility] [place] [facility] Comment on above: Ulcer of left foot w ith fat layer exposed (HCC) (Primary Dx) Start: 01-30-2021 End: 01-30-2021 ambulatory JEFCynthia SIERRA JR. [facility] Start: 01-30-2021 End: 01-30-2021 Patient encounter procedure Jef Sierra DPM Work Phone: [facility] [place] [facility] Comment on above: Ulcer of left foot w ith fat layer exposed (HCC) (Primary Dx) Start: 01-24-2021 End: 01-24-2021 ambulatory JEF SIERRA JR. [facility] Start: 01-24-2021 End: 01-24-2021 Patient encounter procedure Jef Sierra DPM Work Phone: [facility] [place] [facility] Comment on above: Ulcer of left foot w ith fat layer exposed (HCC) (Primary Dx) Start: 01-23-2021 ambulatory NERI SANTA Facilit y:[facility] Start: 01-16-2021 End: 01-16-2021 ambulatory JEF FLORESN . 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 [facility] Start: 01-09-2021 End: 01-09-2021 Patient encounter procedure Jef Sierra DPM Work Phone: [facility] [place] [facility] Comment on above: Ulcer of left foot w ith fat layer exposed (HCC) (Primary Dx) Start: 01-02-2021 End: 01-02-2021 ambulatory JEF FLORESN . [facility] Start: 01-02-2021 End: 01-02-2021 Patient encounter procedure Jef Sierra DPM Work Phone: [facility] [place] Comment on above: Non-pressure chronic ulcer of other part of left foot with fat layer exposed (HCC) (Primary Dx); Ulcer of left foot with fat layer exposed (HCC) Start: 01-01-2021 ambulatory NERI SANTA Facilit y:[facility] Start: 12-27-2020 ambulatory NERI SANTA Facilit y:[facility] Start: 12-27-2020 ambulatory SHARON Harrison cility:[facility] Start: 12-26-2020 ambulatory SELF SELF Facility:[facility] Start: 12-19-2020 End: 12-19-2020 ambulatory JEF SIERRA JR. [facility] Start: 12-19-2020 End: 12-19-2020 Patient encounter procedure Jef Sierra DPM Work Phone: [facility] Comment on above: Ulcer of left foot w ith fat layer exposed (HCC) (Primary Dx) Start: 12-13-2020 ambulatory KRYSTYNA BUSBY Facility :[facility] Start: 12-13-2020 ambulatory SHARON HERNANDEZ Fa cility:[facility] Start: 12-06-2020 Orders Only Jef unger DPM Work Phone: [facility] Start: 12-05-2020 End: 12-05-2020 ambulatory JEF SIERRA JR. [facility] Start: 11-16-2020 End: 11-16-2020 ambulatory JEF SIERRA JR. [facility] Start: 10-17-2020 End: 10-21-2020 ambulatory JEF SIERRA JR. [facility] Start: 10-17-2020 End: 10-17-2020 Office outpatient visit 15 minutes Jef Sierra DPM Work Phone: [facility] Comment on above: Chronic ulcer of gre at toe of left foot, unspecified ulcer stage (HCC) (Primary Dx) Start: 10-10-2020 End: 10-10-2020 Office outpatient visit 25 minutes Olga Lidia Matos MD Work Phone: [facility] Comment on above: Primary open angle g laucoma (POAG) of right eye, severe stage (Primary Dx); Primary open angle glaucoma (POAG) of left eye, severe stage; Diabetic macular edema; Pseudophakia Start: 10-03-2020 End: 10-03-2020 ambulatory [id number] Start: 10-03-2020 End: 10-03-2020 Patient encounter procedure Franck Mtz MD Work Phone: [facility] Comment on above: CIDP (chronic inflam matory demyelinating polyneuropathy) (Primary Dx) Start: 09-26-2020 End: 09-26-2020 Subsequent hospital visit by physician Franck Mtz MD Work Phone: [facility] Comment on above: Arrived Start: 09-26-2020 End: 09-26-2020 Office outpatient visit 25 minutes Franck Mtz MD Work Phone: Neurology [facility] Comment on above: 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 [facility] Start: 09-14-2020 End: 09-14-2020 Office outpatient visit 15 minutes Jef Sierra DPM Work Phone: [facility] Comment on above: Great toe pain, left (Primary Dx); Foot abscess, left Start: 09-13-2020 End: 09-13-2020 Chart abstracting Jef Sierra DPM Work Phone: [facility] Comment on above: Asthma, [...] minutes Luis Miguel Kaur MD Work Phone: [facility] Comment on above: Type 2 diabetes bety itus with diabetic polyneuropathy, with long-term current use of insulin (Primary Dx); Acquired hypothyroidism Start: 09-12-2020 ambulatory JEF SIERRA JR. [facility] Start: 04-25-2020 End: 04-25-2020 Orders Only Kristen Elzbieta Chamberlain Work Phone: [facility] Start: 02-17-2020 End: 02-17-2020 Subsequent hospital visit by physician Sr Santa [facility] Start: 01-27-2020 End: 01-28-2020 Patient encounter procedure [facility] Facility:[facility] Start: 12-22-2019 End: 12-23-2019 Patient encounter procedure [facility] Facility: Start: 12-20-2019 End: 12-20-2019 Emergency department patient visit NERI Parker [facility] Start: 12-20-2019 End: 12-20-2019 Emergency department patient visit Andres Lubin Work Phone: [facility] Comment on above: Avulsion of fingerna il, initial encounter (Primary Dx) Start: 05-29-2018 End: 05-29-2018 Emergency department patient visit Jonathan Camara Work Phone: [facility] Comment on above: Cellulitis (Primary Dx) Start: 01-20-2018 End: 01-20-2018 Patient encounter procedure Rich Beltran [facility] Comment on above: Type 2 diabetes bety itus without complication, with long-term current use of insulin Start: 01-06-2018 End: 01-06-2018 Patient encounter Balbina Goss [facility] Comment on above: Appointment Start: 01-05-2018 End: 01-05-2018 Patient encounter Yusra Ching [facility] Comment on above: Type 2 diabetes bety itus without complication, with long-term current use of insulin (Primary Dx) Start: 01-01-2018 End: 01-01-2018 Office outpatient visit 25 minutes Luis Miguel Sallie Kaur Work Phone: [facility] Comment on above: Type 2 diabetes bety itus with diabetic polyneuropathy, without long-term current use of insulin (Primary Dx); Mixed hyperlipidemia Start: 01-01-2018 End: 01-01-2018 Patient encounter Historical Provider Neurology Madie Velazquez Start: 12-16-2017 Patient encounter procedure Pili Gilliam Facility:[facility] Start: 11-25-2017 Patient encounter procedure Pili Gilliam Facility:[facility] Start: 11-25-2017 End: 11-25-2017 Patient encounter Pili Gilliam Work Phone: [facility] Start: 11-03-2017 Patient encounter procedure Pili Gilliam Facility:[facility] Start: 08-22-2017 End: 08-22-2017 Patient encounter procedure Mark Anthony Mcdonald Facility:[facility] Start: 08-14-2017 Patient encounter procedure Mark Anthony Mcdonald Facility:[facility] Start: 06-13-2017 Patient encounter procedure Martha Yan Facility:[facility] Start: 06-04-2017 End: 06-05-2017 Emergency department patient visit Ariel Franklin Facility:[facility] Start: 04-11-2017 End: 04-11-2017 Ambulatory Martha Carsonwood Work Phone: [facility] Start: 04-07-2017 Office/outpatient vi sit, olivier, level 3 Pili Gilliam Work Phone: [facility] Start: 03-28-2017 End: 03-28-2017 Ambulatory Pili Gilliam Work Phone: [facility] Start: 03-14-2017 End: 03-14-2017 Ambulatory Pili Gilliam Work Phone: [facility] Procedures Date Procedure Procedure Detail Performing Clinician [...] DO Work Phone: Start: 06-28-2024 End: 06-28-2024 [facility] medical xm&eval compre new pt 1/> vst Primary open angle glaucoma (POAG) of both eyes, moderate stage Skylar Whitfield DO Work Phone: Comment on above: Primary open angle g laucoma (POAG) of both eyes, moderate stage (Primary Dx); 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 mellitus (CMS/HCC); Left posterior capsular opacification; Dry eyes Start: 03-29-2023 [facility] CBC W/ AUTO DIFF D aram Shen MD Work Phone: Start: 04-02-2022 Radex spine cervical 4 or 5 views Alisia Cevallos DO Work Phone: Start: 12-04-2021 Radex spine cervical 2 or 3 views Alie Loza PHOTO MASK PROCESSOR - LAMINATING MACHINE OPERATOR Work Phone: Start: 08-20-2021 Antibody screen JERRY BARRAZA Comment on above: Performed By: #### [id number] #### [facility] [address] [place] [address], [facility] Start: 08-10-2021 Glucose blood reagent strip Aniket [...] spine cervical 2 or 3 views Kam Lionel Loera PHOTO MASK PROCESSOR - LAMINATING MACHINE OPERATOR Work Phone: Start: 08-07-2021 Glucose blood reagent [...] REFLEX TO MG FOR LOW K Skylar Colye MD Work Phone: Start: 08-06-2021 End: 08-06-2021 [...] spine w/ o contrast material Kam Aguirrejack PHOTO MASK PROCESSOR - MANAGER MOBILE Work Phone: Start: 07-25-2021 End: 07-25-2021 Transfusion of packed red blood cells Keri Hart MD Work Phone: Start: 07-25-2021 Radiologic exam abdo men 1 view Keri Hart MD Work Phone: Start: 07-25-2021 End: 07-25-2021 Blood count hemoglobin Missy Diallo Work Phone: Start: 07-25-2021 Electroencephalogram w/rec awake&drowsy Sindy Gudinohlman PHOTO MASK PROCESSOR - LAMINATING MACHINE OPERATOR Work Phone: Start: 07-25-2021 End: 07-25-2021 Calcium ionized Manolo Diallo Work Phone: Start: 07-25-2021 BASIC METABOLIC PANE L W/ REFLEX TO MG FOR LOW K Skylar Coyle MD Work Phone: Start: 07-25-2021 Cortisol [...] ncd id imfluor stain ea Jany Francis PHOTO MASK PROCESSOR - LAMINATING MACHINE OPERATOR Work Phone: Start: 07-24-2021 End: 07-24-2021 Blood [...] 07-15-2021 Assay of glutamyltrase gamma Ava Stemple PHOTO MASK PROCESSOR - MANAGER MOBILE Work Phone: Start: 07-15-2021 BASIC METABOLIC PANE L W/ REFLEX TO MG FOR LOW K Tami Vega MD Work Phone: Start: 07-15-2021 Hepatic function panel Ava Stemple PHOTO MASK PROCESSOR - MANAGER MOBILE Work Phone: Start: 07-15-2021 Ecg routine ecg w/le ast 12 lds trcg only w/o i&r Tami Vega MD Work Phone: Start: 07-14-2021 Glucose blood reagent strip Silver Carmona MD Work Phone: Start: 07-14-2021 Glucose blood reagent strip Silver Carmona MD Work Phone: Start: 07-14-2021 Culture bacterial bl ood aerobic w/id isolates Ava Stemple PHOTO MASK PROCESSOR - MANAGER MOBILE Work Phone: Start: 07-14-2021 CULTURE, BLOOD 1 Bridge tte Stemple PHOTO MASK PROCESSOR - MANAGER MOBILE Work Phone: Start: 07-14-2021 Assay of magnesium [...] 3 views Kam Prado APRN - MANAGER MOBILE Work Phone: Start: 07-10-2021 Insj prph ctr vad w/ subq port age 5 yr/> Meka Crowe MD Work Phone (unformatted): [phone] Start: 07-10-2021 COVID-19, RAPID Rufus Argueta MD Work Phone: Start: 07-10-2021 Ct cervical spine w/ o contrast material Kam Prado PHOTO MASK PROCESSOR - MANAGER MOBILE Work Phone: Start: 07-10-2021 Glucose blood reagent [...] of packed red blood cells Nas Canales PHOTO MASK PROCESSOR [facility] Start: 07-06-2021 Blood typing serologic abo Johnny [...] brain stem w/o w/contrast material Sindy Sunshine PHOTO MASK PROCESSOR - LAMINATING MACHINE OPERATOR Work Phone: Start: 07-05-2021 Glucose blood reagent strip Johnny Robledo MD Work Phone: Start: 07-05-2021 Radiologic exam swal low function contrast study Sindy Jong PHOTO MASK PROCESSOR - LAMINATING MACHINE OPERATOR Work Phone: Start: 07-05-2021 End: 07-05-2021 Potassium [...] vical w/o & w/contr matrl Kam Prado PHOTO MASK PROCESSOR - MANAGER MOBILE Work Phone: Start: 07-04-2021 Glucose blood reagent strip Johnny Robledo MD Work Phone: Start: 07-04-2021 End: 07-04-2021 CULTURE, BLOOD 1 Giulia Bray APR N - LAMINATING MACHINE OPERATOR Work Phone: Start: 07-04-2021 Glucose blood reagent strip Johnny Robledo MD Work Phone: Start: 9 End: 07-04-2021 Assay of magnesium Hari Wagner [...] study Meka Crowe MD Work Phone (unformatted): [phone] Start: 07-03-2021 Glucose blood reagent strip Johnny Robledo MD Work Phone: Start: 07-03-2021 Radiologic exam swal low function contrast study Rufus Argueta MD Work Phone: Start: 07-03-2021 Echo tthrc r-t 2d w/ wom-mode compl spec&colr d Meka Crowe MD Work Phone (unformatted): [phone] Start: 07-03-2021 Glucose blood reagent strip Johnny [...] 1 Moni Crowe MD Work Phone (unformatted): [phone] Start: 07-02-2021 End: 07-02-2021 Esophagoscopy intra/transmural needle [...] 1 Moni Crowe MD Work Phone (unformatted): [phone] Start: 06-30-2021 End: 06-30-2021 Blood count hemoglobin [...] 1 Moni Crowe MD Work Phone (unformatted): [phone] Start: 06-30-2021 C-reactive protein Neal torsten Argueta MD Work Phone: Start: 06-29-2021 Glucose blood reagent strip Jenifer Jewell MD Work Phone: Start: 06-29-2021 Ct cervical spine w/ contrast material Meka Crowe MD Work Phone (unformatted): [phone] Start: 06-29-2021 Ct thorax w/o contra st material Meka Crowe MD Work Phone (unformatted): [phone] Start: 06-29-2021 Radiologic exam ches t single [...] Work Phone: Start: 05-11-2021 Creatinine blood Franck tMz MD Work Phone: Start: 03-01-2021 Follow-up visit [...] or At-Risk (2 of 2 - PPSV23) [facility] Start: 09-27-2024 End: 09-27-2024 Patient encounter procedure [facility] Comment on above: Arrived Start: 08-27-2024 End: 08-27-2024 Patient encounter procedure 08/27/2024 10:30 AM EDT Office Visit [facility] [address] [place] [phone] Ramona Campuzano PA [address] [place] [address] Arrived [facility] Comment on above: Arrived Start: 08-23-2024 End: 08-23-2024 Patient encounter procedure 08/23/2024 10:50 AM EDT Office Visit [facility] [address] [place] [phone] Nadia Quiñones, PHOTO MASK PROCESSOR-LAMINATING MACHINE OPERATOR [address] [place], [place] [address] [facility] Start: 08-17-2024 End: 08-17-2024 Patient encounter procedure 08/17/2024 10:50 AM EDT Office Visit [facility] [address] [place] [address] Nadia Quiñones, PHOTO MASK PROCESSOR-LAMINATING MACHINE OPERATOR [address] [place] [address] [facility] Start: 08-12-2023 Lipid panel Lipids [facility] Start: 07-09-2023 End: 07-09-2023 Patient encounter procedure 07/09/2023 9:05 AM EDT Office Visit [facility] [address] [place] [phone] Nattylaisha Nadia Sousa, PHOTO MASK PROCESSOR-LAMINATING MACHINE OPERATOR [address] [place] [address] [facility] Start: 10-01-2022 End: 10-01-2022 Patient encounter procedure 10/01/2022 Office Visit Neurosurgery Alisia Cevallos, DO [address] [place] [address] [facility] Start: 09-27-2022 GFR test (Diabetes, CKD 3-4, OR last GFR 15-59) GFR test (Diabetes, CKD 3-4, OR last GFR 15-59) [facility] Start: 09-09-2022 Hemoglobin A1c measurement A1C test (Diabetic or Prediabetic) [facility] Start: 07-24-2022 Screening for malignant neoplasm of colon [facility] Start: 06-30-2022 Diabetic foot examination [facility] Start: 06-28-2022 Lipid panel [facility] [employer] Start: 04-12-2022 Diabetic retinal exam Diabetic retinal exam [facility] Start: 04-12-2022 Diabetic retinal eye exam EYE EXAM [facility] Start: 04-12-2022 Glaucoma screening Diabetic retinal exam [facility] Start: 04-12-2022 [facility] Start: 03-15-2022 LIPIDS LIPIDS [facility] Start: 03-15-2022 Microalbumin measurement, urine, quantitative URINE MICROALBUMIN TEST [facility] Start: 03-15-2022 Thyroid stimulating hormone measurement TSH [facility] Start: 03-08-2022 End: 03-08-2022 Patient encounter procedure 03/08/2022 Office Visit Neurosurgery Alisia Cevallos, [address] [facility] [address] [place] [address] [facility] Start: 02-14-2022 Ophthalmic examination and evaluation Ophthalmology Exam [facility] Start: 12-27-2021 Ophthalmic examination and evaluation Ophthalmology Exam [facility] Start: 12-07-2021 End: 12-07-2021 Patient encounter procedure 12/07/2021 Office Visit Urology [facility] Start: 10-18-2021 Influenza vaccination Flu vaccine (Season Ended) [facility] Start: 10-18-2021 [facility] Start: 10-05-2021 Diabetic retinal eye exam DIABETIC EYE EXAM [facility] Start: 09-28-2021 Hemoglobin A1c measurement [facility] Start: 09-17-2021 Influenza vaccination Flu vaccine (#1) [facility] Start: 09-13-2021 Diabetic retinal eye exam DIABETIC EYE EXAM [facility] Start: 09-12-2021 Hemoglobin A[facility]c [facility] Start: 09-01-2021 LIPIDS LIPIDS [facility] Start: 09-01-2021 Microalbumin measurement, urine, quantitative URINE MICROALBUMIN TEST [facility] Start: 09-01-2021 Potassium [Moles/volume] in Serum or Plasma POTASSIUM [facility] Start: 08-22-2021 End: 08-22-2021 CERVICAL LAMINECTOMY [facility] Start: 08-22-2021 End: 08-22-2021 [facility] [place] Start: 08-16-2021 Diabetic retinal eye exam DIABETIC EYE EXAM [facility] Start: 08-08-2021 End: 08-08-2021 Patient encounter procedure 08/08/2021 Office Visit Infectious Diseases Meka Crowe MD [address] [facility] [place], [place] [phone] (Work) [facility] Start: 07-31-2021 End: 07-31-2021 Patient encounter procedure 07/31/2021 Office Visit Podiatry Jef Sierra Jr., DPM [address] [facility] [place] [address] [facility] Start: 07-25-2021 End: 07-25-2021 Patient encounter procedure 07/25/2021 Office Visit Neurosurgery Alie Loza, PHOTO MASK PROCESSOR - LAMINATING MACHINE OPERATOR [address] [facility] [address] [place] [address] [facility] Start: 07-17-2021 End: 07-17-2021 Patient encounter procedure 07/17/2021 Office Visit Urology Kevin Quintanilla MD [address] [place] [address] [facility] Start: 07-13-2021 End: 07-10-2022 Basic metabolic 2000 panel - Serum or Plasma [facility] Work Phone: Start: 07-10-2021 End: 07-10-2021 Patient encounter procedure 07/10/2021 Office Visit Neurology Franck Mtz MD [address] [place] [phone] Neurology [facility] Start: 07-04-2021 Hemoglobin A1c measurement A1C [facility] Start: 07-04-2021 End: 07-04-2021 ambulatory 07/04/2021 Infusion Visit Neurology Infusion [facility] Start: 06-20-2021 End: 06-20-2021 ambulatory 06/20/2021 Infusion Visit Neurology Infusion [facility] Start: 06-18-2021 End: 06-18-2021 Patient encounter procedure 06/18/2021 Office Visit Endocrinology, Diabetes & Metabolism Luis Miguel Kaur MD [address] [place] [address] [facility] End[facility]ology Start: 06-07-2021 End: 06-07-2021 Patient encounter procedure 06/07/2021 Office Visit Ophthalmology Sharon Hernandez MD [address] [facility] [address] [place] [address] [facility] Start: 06-06-2021 End: 06-06-2021 ambulatory 06/06/2021 Infusion Visit Neurology Infusion [facility] Start: 06-05-2021 End: 06-05-2021 Patient encounter procedure 06/05/2021 Office Visit Orthopaedics Yaritza Stanley MD [address] [place] [address] [facility] Start: 05-31-2021 End: 05-31-2021 Patient encounter procedure 05/31/2021 Office Visit Ophthalmology Sharon Hernandez MD [address] [facility] [address] [place] [phone] [facility] Start: 05-23-2021 End: 05-23-2021 ambulatory 05/23/2021 Infusion Visit Neurology Infusion [facility] Start: 05-15-2021 End: 05-15-2021 Patient encounter procedure 05/15/2021 Office Visit Ophthalmology Olga Lidia Matos MD [address] [facility] [address] [place] [address] [facility] Start: 04-17-2021 End: 04-17-2021 Patient encounter procedure 04/17/2021 Office Visit Podiatry Jef Sierra Jr., DPSallie [address] [place] [address] [facility] Start: 03-06-2021 End: 03-06-2021 Patient encounter procedure 03/06/2021 Office Visit PodJef Wagner Jr., DPM [address] [place] [address] [facility] Podiatry Start: 03-04-2021 Hemoglobin A1c measurement [facility] Start: 02-20-2021 End: 02-20-2021 Patient encounter procedure 02/20/2021 Office Visit Jef Vieira Jr., DPSallie [address] [place] [address] [facility] Podiat[facility] Start: 2021 End: 2021 Patient encounter procedure 2021 Office Visit Jef Vieira Jr., DPSallie [address] [place] [address] [facility] Podiat[facility] Start: 01-30-2021 End: 01-30-2021 Patient encounter procedure 01/30/2021 Office Visit Jef Vieira Jr., DPSallie [address] [place] [address] [facility] Podiat[facility] Start: 01-23-2021 End: 01-23-2021 Patient encounter procedure 01/23/2021 Office Visit Jef Vieira Jr., DPSallie [address] [place] [address] [facility] Pod[facility] Start: 01-16-2021 End: 01-16-2021 Patient encounter procedure 01/16/2021 Office Visit Jef Vieira Jr., DPM [address] [place] [address] [facility] Podiat[facility] Start: 01-09-2021 End: 01-09-2021 Patient encounter procedure 01/09/2021 Office Visit PodJef Wagner Jr., DPSallie [address] [place] [address] [facility] Start: 01-01-2021 End: 01-01-2021 Patient encounter procedure 01/01/2021 Office Visit Neurology Nurys Thornton, PHOTO MASK PROCESSOR-LAMINATING MACHINE OPERATOR [address] [phone] Neurology [facility] Start: 12-26-2020 End: 12-26-2020 Patient encounter procedure 12/26/2020 Office Visit PodJef Wagner Jr., DPM [address] [place] [address] [facility] Physician [facility] Podiatry Start: 12-02-2020 Hemoglobin A1c measurement A1C [facility] Start: 11-30-2020 End: 11-30-2020 Patient encounter procedure 11/30/2020 Office Visit Ophthalmology Sharon Hernandez MD [address] [phone] [facility] Start: 11-16-2020 End: 11-16-2020 Patient encounter procedure 11/16/2020 Office Visit PodJef Wagner Jr., DPM [address] [place] [address] [facility] Physician [facility] Podiatry Start: 11-16-2020 End: 11-16-2020 Patient encounter procedure 11/16/2020 Office Visit Endocrinology, Diabetes & Metabolism Luis Miguel Kaur MD [address] [place] [address] [facility] Endocrinology Start: 11-14-2020 End: 11-14-2020 Patient encounter procedure 11/14/2020 Office Visit Ophthalmology Olga Lidia Matos MD [address] [place] [address] [facility] Start: 11-07-2020 End: 11-07-2020 Patient encounter procedure 11/07/2020 Office Visit Neurology Nurys Thornton, PHOTO MASK PROCESSOR-LAMINATING MACHINE OPERATOR [address] [place] [phone] Neurology [facility] Start: 10-18-2020 Influenza vaccination [facility] Start: 10-18-2020 End: 10-18-2020 Patient encounter procedure 10/18/2020 Office Visit Ophthalmology Sharon Hernandez MD [address] [place] [address] [facility] Start: 10-17-2020 End: 10-17-2020 ambulatory 10/17/2020 Infusion Visit Neurology Infusion [facility] Start: 10-10-2020 End: 10-10-2020 Patient encounter procedure 10/10/2020 Office Visit Ophthalmology Olga Lidia Matos MD [address] [place] [address] [facility] Start: 10-06-2020 Pneumococcal 0-64 years Vaccine (2 - PCV) Pneumococcal 0-64 years Vaccine (2 - PCV) [facility] Start: 10-06-2020 [facility] Start: 10-05-2020 End: 10-05-2020 Patient encounter procedure 10/05/2020 Office Visit Ophthalmology Sharon Hernandez MD [address] [place] [address] [facility] Start: 10-03-2020 End: 10-03-2020 ambulatory [facility]fusion [facility] Start: 10-03-2020 End: 10-03-2020 Patient encounter procedure 10/03/2020 Office Visit PodiatrJef Boykin Jr., DPM [address] [place] [address] [phone] [facility] Start: 09-26-2020 End: 09-26-2021 SENSORY MOTOR NEUROPATHY PANEL [facility] Work Phone: Comment on above: Expected: 09/26/2020, Expires: 2 Start: 09-26-2020 End: 09-26-2021 VEGF [facility] Comment on above: Expected: 09/26/2020, Expires: 2 Start: 09-19-2020 End: 09-19-2020 ambulatory 09/19/2020 Infusion Visit Neurology [facility]fusion [facility] Start: 09-14-2020 End: 09-14-2020 Patient encounter procedure 09/14/2020 Office Visit Podiatry Jef Sierra Jr., DPM [address] [place] [address] [phone] [facility] Start: 10-19-2019 Influenza vaccination Flu vaccine (#1) [place], [place] Start: 10-19-2019 Influenza vaccination given Sequential Influenza Vaccine (#1) [facility] Start: 08-25-2019 Creatinine measurement [facility] [place] [place] Start: 08-25-2019 Potassium monitoring Potassium monitoring [place], [place] Start: 08-12-2019 Urine screening for protein [facility] Start: 12-26-2018 LIPIDS LIPIDS [facility] Work Phone: Start: 12-19-2018 Diabetic retinal eye exam DIABETIC EYE EXAM [facility] Work Phone: Start: 10-09-2018 Thyrotropin Qn TSH [facility] Work Phone: Start: 08-04-2018 Annual Wellness Visit (AWV) Annual Wellness Visit (AWV) [facility] Start: 07-19-2018 HbA1c (Bld) [Mass fraction] A1C test (Diabetic or Prediabetic) [place], [place] Start: 07-06-2018 End: 07-06-2018 Ambulatory 07/06/2018 Office Visit Neurology Nurys Thonrton, PHOTO MASK PROCESSOR-LAMINATING MACHINE OPERATOR [address] [address] Neurology [facility] Start: 06-25-2018 Hemoglobin A1c/Hemoglobin.total mass fraction (Bld) HBA1C TEST [facility] Work Phone: Start: 04-04-2018 Protein mass conc MAMMOGRAM SCREENING DISCUSSION [facility] Work Phone: Start: 04-04-2018 Screening mammography [facility] Start: 04-02-2018 End: 04-02-2018 Ambulatory 04/02/2018 Appointment NEUROPHYSIOLOGY Estefania Markham MD [address] [place] [phone] Department of Neurology Start: 03-20-2018 End: 03-20-2018 Ambulatory 03/20/2018 Office Visit Ophthalmology Grace Washington MD [address] [place] [address] [facility] Start: 03-05-2018 End: 03-05-2018 Ambulatory Division of Hematology & Oncology Start: 02-03-2018 End: 02-03-2018 Ambulatory 02/03/2018 Office Visit Sleep Medicine Stefani Estrada MD [address] [place] [address] [address] [place] [address] Department of Sleep Medicine Start: 01-22-2018 End: 01-22-2018 Ambulatory [facility] Rheumatology Start: 10-18-2017 Influenza vaccination [facility] Start: 10-18-2017 Influenza vaccination given SEQUENTIAL INFLUENZA VACCINE (#1) [facility] Start: 06-28-2017 Lipid panel Lipid screen [place], [place] Start: 04-11-2017 Ambulatory 04/11/2017 Hospital Encounter Martha Yan, DPM [address] [place] [address] [phone] [facility] Start: 04-07-2017 Ambulatory 04/07/2017 Office Visit Cardiology Pili Gilliam, DPM [address] [place] [address] [phone] Reji Miramontes III, DO [address] [place] [address] [phone] [facility] Start: 10-18-2016 Influenza vaccination SEQUENTIAL INFLUENZA VACCINE (#1) [facility] Start: 06-25-2014 Diabetic microalbuminuria test Diabetic microalbuminuria test [place] Start: 12-30-2013 Administration of herpes zoster vaccine Zoster Vaccines (2 of 3) [facility] Start: 12-30-2013 Shingles vaccine (1 of 2) Shingles vaccine (1 of 2) [facility] Start: 12-30-2013 Shingles vaccine (2 of 3) Shingles vaccine (2 of 3) [facility] Start: 12-30-2013 Zoster vaccine hzv live for subcutaneous use ZOSTER (SHINGLES) VACCINE (2 of 3) [facility] Start: 12-30-2013 [facility] Start: 2013 Administration of herpes zoster vaccine Zoster Vaccines (1 of 2) [facility] Start: 2013 Colonoscopy COLON CANCER SCREENING DISCUSSION [facility] Work Phone: Start: 2013 Protein mass conc COLON CANCER SCREENING DISCUSSION [facility] Work Phone: Start: 2013 Screening for malignant neoplasm of breast [facility] Start: 2013 Screening for malignant neoplasm of colon [facility] Start: 2013 Shingles Vaccine (1 of 2) Shingles Vaccine (1 of 2) [place] Start: 2013 Zoster vaccine hzv live for subcutaneous use ZOSTER (SHINGLES) VACCINE (1 of 2) [facility] Start: 02-07-2008 Colonoscopy COLORECTAL CANCER SCREENING DISCUSSION [facility] Start: 02-07-2008 Screening for malignant neoplasm of colon [facility] Start: 2003 Screening for malignant neoplasm of breast Mammogram [facility] Start: 1993 Screening for malignant neoplasm of cervix [facility] Start: 02-07-1984 Screening for malignant neoplasm of cervix [facility] Start: 1982 DTaP/Tdap/Td vaccine (1 - Tdap) DTaP/Tdap/Td vaccine (1 - Tdap) [facility] Start: 1982 Hepatitis B vaccine (1 of 3 - Risk 3-dose series) Hepatitis B vaccine (1 of 3 - Risk 3-dose series) [facility] Start: 1982 Third diphtheria, tetanus and acellular pertussis (DTaP) vaccination TDAP (ADULT) [facility] Start: 1982 [facility] Start: 1981 Hepatitis C antibody, confirmatory test Hepatitis C Screening [facility] Start: 1981 Hepatitis C screening [facility] Start: 1981 Microalbumin measurement, urine, quantitative URINE MICROALBUMIN TEST [facility] Work Phone: Start: 1981 Tetanus vaccination TETANUS [facility] Start: 1979 COVID-19 Vaccine (1 of 2) COVID-19 Vaccine (1 of 2) [facility] Start: 1978 HIV screening [facility] Start: 02-07-1976 HIV screening HIV SCREENING DISCUSSION [facility] Work Phone: Start: 1975 Adolescent depression screening assessment Depression Screening (PHQ9) [facility] Start: 1975 COVID-19 Vaccine (1) COVID-19 Vaccine (1) [facility] Start: 1975 Depression Screen Depression Screen [facility] Start: 1975 Depression screening using PHQ-9 (Patient Health Questionnaire 9) score [facility] Start: 1975 [facility] Start: 1973 Diabetic foot examination (regime/therapy) [facility] Start: 1973 Diabetic retinal exam Diabetic retinal exam [facility] Start: 1973 Microalbumin measurement, urine, quantitative Urine [facility]albumin [facility] Start: 1973 Ophthalmic examination and evaluation OPHTHALMOLOGY EXAM [facility] Start: 1973 Urine, microalbumin URINE MICROALBUMIN [facility] Start: 1969 Pneumococcal Vaccine: Ped or At-Risk (1 of 2 - PPSV23) Pneumococcal Vaccine: Ped or At-Risk (1 of 2 - PPSV23) [facility] Start: 02-07-1968 COVID-19 Vaccine (1) COVID-19 Vaccine (1) [facility] Start: 02-07-1968 [facility] [employer] Start: 1966 History and physical examination, annual for health maintenance Wellness Visit [facility] Start: 1963 COVID-19 Vaccine (#1) COVID-19 Vaccine (#1) [facility] [employer] Start: 1963 Annual Wellness Visit (AWV) Annual Wellness Visit (AWV) [facility] [employer] Start: 1963 Diabetic foot examination DIABETIC FOOT EXAM [facility] Start: 1963 HbA1c HEMOGLOBIN A1C [facility] Start: 1963 Hemoglobin A1c measurement A1C [facility] Start: 1963 Hepatitis C antibody, confirmatory test HEPATITIS C SCREENING [facility] Start: 1963 HEPATITIS C SCREENING HEPATITIS C SCREENING [facility] Start: 1963 Hepatitis C screening Hepatitis C screen [facility] [place] Start: 1963 Protein mass conc Mammogram [facility] Start: 1963 Screening colonoscopy COLONOSCOPY [facility] Start: 1963 Screening for malignant neoplasm of cervix PAP SMEAR [facility] Start: 1963 Screening for malignant neoplasm of colon Colorectal Cancer Screening: Colonoscopy [facility] Start: 1963 Screening mammography Mammogram [facility] Start: 1963 Tetanus vaccination [facility] Start: 1963 [facility] Aerobic culture Aerobic culture Microbiology Timed Impetigo Release Upon Ordering for 1 Occurrences starting 08/27/2024 [facility] [employer] Work Phone: Comment on above: Release Upon Ordering for 1 Occurrences starting 08/27/2024 End: 09-14-2021 Aerobic microbial culture Wound Aerobic Culture Microbiology Routine Foot abscess, left 1 Occurrences starting 09/14/2020 until 09/14/2021 [facility] Comment on above: 1 Occurrences starting 09/14/2020 until 09/14/2021 Aerobic microbial culture Wound Aerobic Culture Microbiology Routine Wound infection Partial thickness burn of single finger of right hand excluding thumb, initial encounter 05/01/2021 3:00 PM EDT [facility] Work Phone: Basic Metabolic Pane l w/ Reflex to MG [facility] Work Phone: Basic Metabolic Pane l w/ Reflex to MG [facility] Work Phone: BLOOD GAS, ARTERIAL [facility] Work Phone: Blood gas, arterial [facility] [employer] Work Phone: C-reactive protein [facility] [employer] Work Phone: CBC W Auto Different ial panel - Blood [facility] [employer] Work Phone: End: 09-08-2021 CBC W Auto Differential panel - Blood [facility] [employer] Work Phone: CBC W Auto Different ial panel - Blood [facility] [employer] Work Phone: Continuous pulse oximetry [facility] Phone: End: 02-17-2020 COVID-19 COVID-19 Lab Routine Once for 1 Occurrences starting 02/17/2020 until 02/17/[address] [facility] [place] [place] Comment on above: Once for 1 Occurrences starting 02/17/20 20 until 02/17/2020 End: 09-08-2021 Creatinine [Mass/volume] in Serum or Plasma [facility] [employer] Work Phone: Culture, Anaerobic a nd Aerobic [facility] [employer] Work Phone: End: 06-28-2021 Culture, Blood 1 [employer] Phone: Comment on above: One Time for 1 Occurrences starting 06/17 until 06/28/2021 Culture, Blood 1 [employer] Phone: Culture, Blood 1 [employer] Phone: Culture, Blood 1 [employer] Phone: Culture,Bacterial Culture,Bacter ial Routine 03/14/2017 9:30 AM [facility] Work Phone: Glucose [Mass/volume ] in Serum or Plasma [employer] Phone: Glucose [Mass/volume ] in Serum or Plasma [employer] Phone: End: 08-02-2021 Glucose [Mass/volume] in Serum or Plasma [employer] Phone: End: 07-26-2021 Initiate RT Adult Mechanical Ventilation Protocol [employer] Phone: Mechanical Ventilati on with default initial settings [employer] Phone: Oxygen therapy [Mini mum Data Set] [employer] Phone: Oxygen therapy [Mini mum Data Set] [employer] Phone: End: 06-28-2021 PREVIOUS SPECIMEN [employer] Phone: End: 07-15-2021 PREVIOUS SPECIMEN [employer] Phone: End: 07-18-2021 PREVIOUS SPECIMEN [employer] Phone: End: 08-08-2021 PREVIOUS SPECIMEN [facility] Phone: Respiratory Care Evaluation and Treat [employer] Phone: End: 07-05-2021 BOARD OF EDUCATION SECRETARY clinical swallow evaluation [facility] Work Phone: End: 06-29-2021 Speech and language therapy regime [facility] Work Phone: Spontaneous Breathin g Trial (SBT) [facility] Work Phone: End: 07-14-2021 Wound ostomy eval and treat [facility] Work Phone: Immunizations Immunization Date Immunization Notes Care Provider [facility] 10-07-2019 influenza virus vacc ine, unspecified formulation Jef Sierra Jr., DPM Work Phone: [facility] 10-07-2019 pneumococcal vaccine , unspecified formulation Jef Sierra Jr., DPM Work Phone: [facility] 11-04-2013 influenza virus vacc ine, whole virus Franck Mtz MD Work Phone: [facility] 11-04-2013 influenza, seasonal, injectable Franck Mtz MD Work Phone: [facility] 11-04-2013 zoster vaccine, live Franck Mtz MD Work Phone: [facility] 11-04-2013 influenza virus vacc ine, unspecified formulation Luis Miguel Darmody [facility] Work Phone: 11-04-2013 zoster vaccine, unspecified formulation Franck Mtz MD Work Phone: [facility] 07-29-2012 pneumococcal polysaccharide vaccine, 23 valent Franck Mtz MD Work Phone: [facility] Payers Date Payer Category Payer Medicaid MEDICAID [facility] [id number] 2022 Medicaid [id number] 2021 Self-pay [id number] 2017 Unknown [id number] 2002 Medicare xxxxxxxxxx 2.16.840.1.259254.3.249.13 2002 Medicare [id number]. 1.13.385.2. 7.3.622895.315 2002 Medicare [id number] 1.2.840.757349.1.13.385.2. 7.3.676475.315 2002 Government (not [facility] or Medicaid) [facility] 1.2.840.799530.1.13.693.2. [id number] 2002 Unknown xxxxxxxxx 2.16.840.1.896696.3.249.13 2001 Unknown [id number] 1.2.840.805022.1.13.385.2. 7.3.023201.315 2001 Unknown 1.2.840.936101. 1.13.385.2. 7.3.309501.315 1963 Unknown [id number] 2.16.840.1.664781.3.579.2. 902 1963 Unknown [id number] 2.16.840.1.813225.3.579.2. 593 1963 Unknown [id number] 2.16.840.1.610440.3.579.2. 593 1963 Unknown [id number] 2.16.840.1.960491.3.579.2. 903 1963 Unknown [id number] 2.16.840.1.720614.3.579.2. 903 1963 Unknown [id number] 2.16.840.1.304671.3.579.2. 903 1963 Unknown [id number] 2.16.840.1.885584.3.579.2. 903 1963 Unknown [id number] 2.16.840.1.134784.3.579.2. 903 1963 Unknown [id number] 2.16.840.1.698148.3.579.2. 903 1963 Unknown [id number] 2.16.840.1.951507.3.579.2. 903 1963 Unknown [id number] 2.16.840.1.875022.3.579.2. 903 1963 Unknown [id number] 2.16.840.1.380219.3.579.2. 903 1963 Unknown [id number] 2.16.840.1.076655.3.579.2. 903 1963 Unknown [id number] 2.16.840.1.671311.3.579.2. 903 1963 Unknown [id number] 2.16.840.1.266255.3.579.2. 903 1963 Unknown [id number] 2.16.840.1.883177.3.579.2. 903 1963 Unknown [id number] 2.16.840.1.015430.3.579.2. 903 1963 Unknown [id number] 2.16.840.1.961947.3.579.2. 903 1963 Unknown [id number] 2.16.840.1.288180.3.579.2. 903 1963 Unknown [id number] 2.16.840.1.263206.3.579.2. 903 1963 Unknown [id number] 2.16.840.1.111319.3.579.2. 1143 1963 Unknown [id number] 2.16.840.1.115097.3.579.2. 1143 1963 Unknown [id number] 2.16.840.1.071002.3.579.2. 903 1963 Unknown [id number] 2.16.840.1.929799.3.579.2. 903 1963 Unknown [id number] 2.16.840.1.512181.3.579.2. 903 1963 Unknown [id number] 2.16.840.1.333254.3.579.2. 647 1963 Unknown [id number] 2.16.840.1.020941.3.579.2. 594 1963 Unknown [id number] 2.16.840.1.118548.3.579.2. 594 1963 Unknown [id number] 2.16.840.1.900709.3.579.2. 594 1963 Unknown [id number] 2.16.840.1.051368.3.579.2. 594 1963 Unknown [id number] 2.16.840.1.445755.3.579.2. 594 1963 Unknown [id number] 2.16.840.1.687914.3.579.2. 594 1963 Unknown [id number] 2.16.840.1.054780.3.579.2. 594 1963 Unknown [id number] 2.16.840.1.047668.3.579.2. 594 1963 Unknown [id number] 2.16.840.1.955971.3.579.2. 594 1963 Unknown [id number] 2.16.840.1.766603.3.579.2. 594 1963 Unknown [id number] 2.16.840.1.786800.3.579.2. 594 1963 Unknown [id number] 2.16.840.1.794573.3.579.2. 594 1963 Unknown [id number] 2.16.840.1.445074.3.579.2. 594 1963 Unknown [id number] 2.16.840.1.412351.3.579.2. 594 1963 Unknown [id number] 2.16.840.1.669940.3.579.2. 594 1963 Unknown [id number] 2.16.840.1.202262.3.579.2. 594 1963 Unknown [id number] 2.16.840.1.664523.3.579.2. 594 1963 Unknown [id number] 2.16.840.1.811086.3.579.2. 594 1963 Unknown [id number] 2.16.840.1.435931.3.579.2. 594 1963 Unknown [id number] 2.16.840.1.169112.3.579.2. 594 1963 Unknown [id number] 2.16.840.1.800467.3.579.2. 594 1963 Unknown [id number] 2.16.840.1.097550.3.579.2. 594 1963 Unknown [id number] 2.16.840.1.799952.3.579.2. 594 1963 Unknown [id number] 2.16.840.1.637390.3.579.2. 174 1963 Unknown [id number] 2.16.840.1.503649.3.579.2. 175 1963 Unknown [id number] 2.16.840.1.376866.3.579.2. 175 1963 Unknown [id number] 2.16.840.1.361237.3.579.2. 727 1963 Unknown [id number] 2.16.840.1.322018.3.579.2. 727 1963 Unknown [id number] 2.16.840.1.060988.3.579.2. 727 1963 Unknown [id number] 2.16.840.1.588643.3.579.2. 727 1963 Unknown [id number] 2.16.840.1.063810.3.579.2. 727 1963 Unknown [id number] 2.16.840.1.150390.3.579.2. 1259 1963 Unknown [id number] 2.16.840.1.399934.3.579.2. 1259 1963 Unknown [id number] 2.16.840.1.682671.3.579.2. 1259 1959 Medicare [id number] 1959 Unknown [id number] 2.16.840.1.345981.3.249.13 Medicare [id number] 2.16.840.1.595184.3.249.13 Unknown [id number] Unknown [id number] 2.16.840.1.497904.3.579.2. 531 Social History Date Type Detail Facility Start: 04-07-2017 End: 12-04-2021 Tobacco smoking status OHIS Former smoker [facility] End: 02-18-1996 History of tobacco use Current smoker [facility] Start: 1965 Sex Assigned At Not on file [employer] Work Phone: Start: 03-15-2017 End: 03-29-2017 Tobacco smoking status NHIS Unknown if ever smoked [facility] End: 02-18-1996 History of tobacco use Cigarette Smoker [facility] Work Phone: Start: 04-07-2017 Tobacco Comment doesn't rememb er how much she smoked [facility] Start: 04-07-2017 Alcohol Comment rarely [facility] Start: 12-20-2019 End: 12-04-2021 Tobacco use and exposure [facility] Start: 12-20-2019 End: 05-01-2021 Alcohol intake Current drinker of alcohol (finding) [facility] Start: 04-07-2021 End: 07-13-2021 Exposure to SARS-CoV-2 (event) Not sure [facility] Start: 10-05-2017 End: 04-02-2022 Alcohol intake Current non-drinker of alcohol (finding) [place], [place] Start: 1965 Sex Assigned At Female F [facility] Gender identity Not on file [facility] Medical Equipment Procedure Code Equipment Code Equipment Origin al Text Equipment Identifier Dates 1 strip by Unkno wn route 3 times daily (take before meals). [id number] Start: 10-13-2017 End: 01-07-2018 Lens Au00t0 D 23 .5 - [id number] Start: 12-23-2018 Osc Tissue [place] [id number] Start: 02-23-2020 Implant Opth 250 sq Mm Jo 1 Qdrnt Ins Fx Sut Hl Rcs Knt Cpb - [id number] Start: 02-23-2020 [id number] Start: 07-06-2021 Set Screw Spinal M6 - [id number] Start: 09-25-2021 Clinical Notes 09-13-2020 to 09-27-2024 Skylar Whitfield, - 09/27/2024 1:15 PM COY Li - 08/27/2024 10:30 AM Deangelo Whitfield, - 06/28/2024 2:15 PM LISSETTE MalinP - 08/10/2021 5:50 PM EDTDischarjuan ramon [facility] Note Date & Type Note Facility 09-27-2024 Note Right Eye Reliability was good. Progression has been stable. Foveal threshold was normal. Findings include superior arcuate defect, superior nasal step defect. Left Eye Reliability was good. Progression has been stable. Foveal threshold was normal. Findings include superior arcuate defect, superior nasal step defect, inferior nasal step defect. [facility] 09-27-2024 History of Present illness Narrative Images [...] laser capsulotomy, they are to notify their content designer promptly if they have a significant change in symptoms, such as flashes of light (photopsia), an increase in floaters, loss of visual field or decrease in visual acuity. Dry eyes - Dry Eyes OU -- Environmental changes to minimize dryness and exposure and the use of artificial tears were recommended. documented in this encounter [facility] 08-27-2024 History of Present illness Narrative Follow-Up: [...] culture Account Name: Marisa Sumi NPI: Ramona Campuazno [id number] Next Visit: prn for any new/changing lesions documented in this encounter [facility] 06-28-2024 History of Present illness Narrative Images [...] laser capsulotomy, they are to notify their content designer promptly if they have a significant change in symptoms, such as flashes of light (photopsia), an increase in floaters, loss of visual field or decrease in visual acuity. Dry eyes - Dry Eyes OU -- Environmental changes to minimize dryness and exposure and the use of artificial tears were recommended. documented in this encounter [facility] 04-16-2024 Note ED Patient Education Note Orthopedics [...] Managing pain, stiffness, and swelling ??? Take egfb-jbd-nqjsbfa and prescription medicines only as told by [...] day. ??? Do not sit, drive, or business supervisor one place for more than 30 minutes [...] problems. ??? Y (more content not included)... [facility] 08-23-2021 Note MR#: [id number] I [facility] Pt. Name: Meg Georges Admitted: [...] The patient recently was at [facility] in June for complaint of MSSA septicemia. She was trached at that time. She also was found to have an epidural phlegmon, which was causing compression on the cervicomedullary junction. She was given 6 weeks course of antibiotics for osteomyelitis. She had surgery at [facility] postoperatively here after the packing was removed from her nares as she was found to have leaking from her nares. She had a CT facial and brain, which showed a possible CSF leak. Decision was made by our Neurosurgery team and our SICU team to transfer her back to her surgeon since . She was accepted and transferred back to the ICU at [place]. The patient was discharged in stable condition. Electronically Signed by: Jerry Pozo MD 08/23/2021 11:13 A Jerry Pozo MD I have reviewed this discharge summary and confirmed the resident's documentation. Please note that there may be additional documentation from me. Date Dict: 08/22/2021/05:19 P/Mai Grier LAMINATING MACHINE OPERATOR Date Trans: 08/23/2021 07:42 A/genaro [id number] cc: Johny Beckman M.D. [address] [place] [address]. Emergency Medicine [facility] [address] Neri Santa D.O. [address] [place] [address] [facility] [address] [facility] 08-10-2021 History of Present [...] Unable to assess Fluid Accumulation: Mild Extremities,Generalized Supervisor Counseling And Guidance Strength: Not Performed Nutrition Assessment: Chart reviewed. [...] Anthropometric Measures: Height: 5' 5 (165.1 cm) [place] Body Weight (IBW): 125 lbs (57 kg) [...] were not included. [facility] -Progress Note Today's Date and Time: [...] of C2 fx noted Infection Control Recommendations [place] Precautions Isolate for Covid until 07-23-21 Antimicrobial [...] through 08-20-21. Patient was transferred back to [facility] on 07-14-21 because of a positive [...] PHLEGMON performed by Alisia Cevallos DO at [facility] OR CHOLECYSTECTOMY EYE SURGERY [address] shunt for open angle glaucoma. MRI compatible- device is all silicone LAMINECTOMY 07/06/2021 Posterior C1, LEFT C2 RHIZOTOMY, EXPLORATION OF EPIDURAL PHLEGMON PICC INSERTION VASCULAR ACCESS TEAM 07/10/2021 SHOULDER SURGERY right TRACHEOSTOMY 07/30/2021 TRACHEOSTOMY N/A 07/30/2021 TRACHEOTOMY performed by Erica Santiago MD at [facility] OR UPPER GASTROINTESTINAL ENDOSCOPY N/A 07/02/2021 EGD ESOPHAGOGASTRODUODENOSCOPY performed by Hari Wagner MD at [facility] Endoscopy Medications: insulin glargine 10 Units SubCUTAneous [...] Friends and Family: Not on file Attends [employer] Services: Not on file Active Member of [...] extension (from neutral), as above. Medical Decision Etomjq-Jgephgfg-Qogbh: SARS-CoV-2, Rapid COVID-19, Rapid Collected: 07/13/21 8075 Result status: Final Resulting lab: [facility] Reference range: Not Detected Value: [...] this assay. Fact sheet for Healthcare Providers: https://www.fda.gov/media/708827/downl oad Fact sheet for Patients: https://www.fda.gov/media/398159/downl oad Methodology: Isothermal Nucleic Acid Amplification Culture, Respiratory Order: [id number] Status: Final result Visible to patient: No (not released) Next appt: Today at 02:30 PM in Radiology (STV MRI RM 1 (1.5T)) Specimen Information: Sputum Aspirated 0 Result Notes Component 07/24/21 5704 Specimen Description .ASPIRATED SPUTUM Direct Exam < 10 EPITHELIAL CELLS/LPF Direct Exam >25 NEUTROPHILS/LPF Direct Exam MANY GRAM NEGATIVE RODS Abnormal Culture KLEBSIELLA AEROGENES HEAVY GROWTH Abnormal Culture NO NORMAL ROB Resulting Agency [facility] Susceptibility Klebsiella aerogenes (1) Antibiotic [...] Patient's name: Meg Georges Patient's account/billing number: [id number] Patient's Date of : 1965 Age: 56 [...] patient was sent to the ED in [facility] from outpatient infusion center where she [...] Date 08/10/21 0000 - 08/10/21 2359 Shift [id number] 7133-2012 1245-4160 24 Hour Total INTAKE I.V.(mL/kg) 169(2.9) 169(2.9) [...] Results Component Value Date PHART 7.406 07/06/2021 IAB3OAP 34.8 07/06/2021 PO2ART 279.0 07/06/2021 GRS5AIX 21.4 07/06/2021 P3YZWTNU 99.4 07/06/2021 FIO2 30.0 08/05/2021 Lactic Acid: [...] No results for input(s): LABIRON, TIBC, FERRITIN, ADMAFYCK79, FOLATE, OCCULTBLD in the last 72 hours. [...] MD Department of Internal Medicine/ Critical care [facility]) 08/10/2021, 7:54 AM Attending Physician Statement I [...] this chart was generated using voice recognition [employer] dictation software. Although every effort was made to ensure the accuracy of this automated windows desktop support, some errors in windows desktop support may have occurred. PALLIATIVE CARE NURSING ASSESSMENT Patient: Meg Georges Room: 3024/3024- Reason For Consult Goals of care evaluation Distress management Guidance and support Facilitate communications Assistance in coordinating care Code Status: Full Code Summary: Pt visit, stable on cpap trial. Awaiting placement to [facility]. Spoke with COURTNEY Santamaria 08/10/21. I gave her suggestions on how to locate Living Will/ Will information. Discussed code classifications again. She confirms understanding and thinks her sister would want to remain full code. Acknowledged and supported Hina in this decision as well as moving forward with transfer to [facility]. Encouraged her to call as needed. [...] (methicillin susceptible Staphylococcus aureus) septicemia ([facility]) CRP elevated Bandemia Allergy to multiple [...] is aware of plan to move to [facility] when bed available. She was [...] Hina relates patient filled out DPOAH at [facility] in [place]. I suggested that she continue to try to contact Meg's it architect but that she could contact [facility] and see if they have Living [...] Supported sister in this, discussed transfer to [facility] soon as bed is available. Wished patient and family well moving forward. Movement Education Specialist Leeann UREÑA, RN, ONN-CG [place] Office: [phone] [place] Office: [phone] [facility] Office: [phone] For Symptom Management Clinic scheduling please call [phone] Images from the original note were not included. [facility] -Progress Note Today's Date and Time: [...] of C2 fx noted Infection Control Recommendations [place] Precautions Isolate for Covid until 07-23-21 Antimicrobial [...] through 08-20-21. Patient was transferred back to [facility] on 07-14-21 because of a positive [...] PHLEGMON performed by Alisia Cevallos DO at [facility] OR CHOLECYSTECTOMY EYE SURGERY [address] shunt for open angle glaucoma. MRI compatible- device is all silicone LAMINECTOMY 07/06/2021 Posterior C1, LEFT C2 RHIZOTOMY, EXPLORATION OF EPIDURAL PHLEGMON PICC INSERTION VASCULAR ACCESS TEAM 07/10/2021 SHOULDER SURGERY right TRACHEOSTOMY 07/30/2021 TRACHEOSTOMY N/A 07/30/2021 TRACHEOTOMY performed by Erica Santiago MD at [facility] OR UPPER GASTROINTESTINAL ENDOSCOPY N/A 07/02/2021 EGD ESOPHAGOGASTRODUODENOSCOPY performed by Hari Wagner MD at [facility] Endoscopy Medications: QUEtiapine 25 mg Oral Nightly [...] Friends and Family: Not on file Attends [employer] Services: Not on file Active Member of [...] extension (from neutral), as above. Medical Decision Nkvxct-Govksrsa-Jtdkd: SARS-CoV-2, Rapid COVID-19, Rapid Collected: 07/13/21 3578 Result status: Final Resulting lab: [facility] Reference range: Not Detected Value: DETECTED [...] this assay. Fact sheet for Healthcare Providers: https://www.fda.gov/media/269086/downl oad Fact sheet for Patients: https://www.fda.gov/media/437155/downl oad Methodology: Isothermal Nucleic Acid Amplification Culture, Respiratory Order: [id number] Status: Final result Visible to patient: No (not released) Next appt: Today at 02:30 PM in Radiology (STV MRI RM 1 (1.5T)) Specimen Information: Sputum Aspirated 0 Result Notes Component 07/24/21 9633 Specimen Description .ASPIRATED SPUTUM Direct Exam < 10 EPITHELIAL CELLS/LPF Direct Exam >25 NEUTROPHILS/LPF Direct Exam MANY GRAM NEGATIVE RODS Abnormal Culture KLEBSIELLA AEROGENES HEAVY GROWTH Abnormal Culture NO NORMAL ROB Resulting Agency [facility] [place] Susceptibility Klebsiella aerogenes (1) Antibiotic [...] Patient's name: Meg Georges Patient's account/billing number: [id number] Patient's Date of : 1965 Age: 56 [...] Continue CPAP HISTORY OF PRESENT ILLNESS: Meg Geroges is a 56 y.o. female with past [...] patient was sent to the ED in [facility] from outpatient infusion center where she [...] Date 08/09/21 0000 - 08/09/21 2359 Shift 5681-7183 7601-7147 5059-3831 24 Hour Total INTAKE I.V.(mL/kg) 191(3.2) 191(3.2) [...] Results Component Value Date PHART 7.406 07/06/2021 XQO4AUZ 34.8 07/06/2021 PO2ART 279.0 07/06/2021 ETG8RAB 21.4 07/06/2021 D0UFVAXJ 99.4 07/06/2021 FIO2 30.0 08/05/2021 Lactic Acid: [...] No results for input(s): LABIRON, TIBC, FERRITIN, QQATTFZL15, FOLATE, OCCULTBLD in the last 72 hours. [...] MD Department of Internal Medicine/ Critical care [facility]) 08/09/2021, 8:12 AM Attending Physician Statement I [...] this chart was generated using voice recognition [employer] dictation software. Although every effort was made to ensure the accuracy of this automated windows desktop support, some errors in windows desktop support may have occurred. Physical Therapy Facility/Department: [facility] CAR 3 Physical Therapy Initial Assessment Name: [...] patient was sent to the ED in [facility] from outpatient infusion center where she [...] Commands: Impaired Other (Comment): intermittant, appeared to senior business intelligence analyst R hand to commands, appeared to try [...] were not included. [facility] -Progress Note Today's Date and Time: [...] of C2 fx noted Infection Control Recommendations [place] Precautions Isolate for Covid until 07-23-21 Antimicrobial [...] through 08-20-21. Patient was transferred back to [facility] on 07-14-21 because of a positive [...] PHLEGMON performed by Alisia Cevallos DO at [facility] OR CHOLECYSTECTOMY EYE SURGERY [address] shunt for open angle glaucoma. MRI compatible- device is all silicone LAMINECTOMY 07/06/2021 Posterior C1, LEFT C2 RHIZOTOMY, EXPLORATION OF EPIDURAL PHLEGMON PICC INSERTION VASCULAR ACCESS TEAM 07/10/2021 SHOULDER SURGERY right TRACHEOSTOMY 07/30/2021 TRACHEOSTOMY N/A 07/30/2021 TRACHEOTOMY performed by Erica Santiago MD at [facility] OR UPPER GASTROINTESTINAL ENDOSCOPY N/A 07/02/2021 EGD ESOPHAGOGASTRODUODENOSCOPY performed by Hari Wagner MD at [facility] Endoscopy Medications: QUEtiapine 50 mg Oral Nightly [...] Friends and Family: Not on file Attends [employer] Services: Not on file Active Member of [...] extension (from neutral), as above. Medical Decision Gabqre-Esesydfm-Sousw: SARS-CoV-2, Rapid COVID-19, Rapid Collected: 07/13/21 5975 Result status: Final Resulting lab: [facility] Reference range: Not Detected Value: [...] this assay. Fact sheet for Healthcare Providers: https://www.fda.gov/media/815160/downl oad Fact sheet for Patients: https://www.fda.gov/media/505841/downl oad Methodology: Isothermal Nucleic Acid Amplification Culture, Respiratory Order: [id number] Status: Final result Visible to patient: No [...] Culture NO NORMAL ROB Resulting Agency [facility] Susceptibility Klebsiella aerogenes (1) Antibiotic Interpretation Microscan [...] patient. Please call with questions. Jany Francis, PHOTO MASK PROCESSOR - LAMINATING MACHINE OPERATOR ATTESTATION: I have discussed the case, including pertinent history and exam findings with the PHOTO MASK PROCESSOR. I have evaluated the History, physical findings and pictures of the patient and the coffey elements of the encounter have been performed by me. I have reviewed the laboratory data, other diagnostic studies and discussed them with the PHOTO MASK PROCESSOR. I have updated the medical record where necessary. I agree with the assessment, plan and orders as documented by the PHOTO MASK PROCESSOR. Seth Stokes MD. Critical Care Team - Daily Progress Note Date and time: 08/08/2021 7:18 AM Patient's name: Meg Georges Patient's account/billing number: [id number] Patient's Date of : 1965 Age: 56 [...] patient was sent to the ED in [facility] from outpatient infusion center where she [...] Date 08/08/21 0000 - 08/08/21 2359 Shift [id number] 5721-0263 3048-0501 24 Hour Total INTAKE I.V.(mL/kg) 196.4(3.3) 196.4(3.3) [...] Humidification Source: HME Cuff Pressure (cm H2O): (loan supervisor) Skin Barrier Applied: (Mepilex placed after trach change) Lab Results Component Value Date PHART 7.406 07/06/2021 NAX6MNP 34.8 07/06/2021 PO2ART 279.0 07/06/2021 OBL2ZQE 21.4 07/06/2021 O4YXFNHH 99.4 07/06/2021 FIO2 30.0 08/05/2021 Lactic Acid: [...] No results for input(s): LABIRON, TIBC, FERRITIN, FMUBOQIH76, FOLATE, OCCULTBLD in the last 72 hours. [...] MD Department of Internal Medicine/ Critical care [facility]) 08/08/2021, 7:18 AM Attending Physician Statement I [...] this chart was generated using voice recognition [employer] dictation software. Although every effort was made to ensure the accuracy of this automated windows desktop support, some errors in windows desktop support may have occurred. Neurosurgery attending Supervised passive [...] Anthropometric Measures: Height: 5' 5 (165.1 cm) [place] Body Weight (IBW): 125 lbs (57 kg) [...] CIDP (chronic inflammatory demyelinating polyneuropathy) ([facility]) Sepsis ([facility]) Bacteremia Hypothyroidism Hypokalemia Type 2 diabetes mellitus with diabetic polyneuropathy ([facility]) Primary hypertension Upper GI bleed Non-intractable vomiting Unintentional weight loss Metabolic encephalopathy MSSA (methicillin susceptible Staphylococcus aureus) septicemia ([facility]) CRP elevated Bandemia Allergy to multiple antibiotics Pyogenic inflammation of bone (HCC) Acute intractable headache Septic arthritis of cervical spine ([facility]) Abscess in epidural space of cervical [...] know that I will be rounding at [facility] all week. Goals/Plan of care Education/support to [...] to call us as needed. Update given. Movement Education Specialist Leeann FENTONN, RN, ONN-CG [place] Office: [phone] [place] Office: [phone] [facility] Office: [phone] For Symptom Management Clinic scheduling please call [phone] Images from the original note were not included. [facility] -Progress Note Today's Date and Time: [...] prior to surgical intervention. Infection Control Recommendations [place] Precautions Isolate for Covid until 07-23-21 Antimicrobial [...] through 08-20-21. Patient was transferred back to [facility] on 07-14-21 because of a positive [...] PHLEGMON performed by Alisia Cevallos DO at [facility] OR CHOLECYSTECTOMY EYE SURGERY [address] shunt for open angle glaucoma. MRI compatible- device is all silicone LAMINECTOMY 07/06/2021 Posterior C1, LEFT C2 RHIZOTOMY, EXPLORATION OF EPIDURAL PHLEGMON PICC INSERTION VASCULAR ACCESS TEAM 07/10/2021 SHOULDER SURGERY right TRACHEOSTOMY 07/30/2021 TRACHEOSTOMY N/A 07/30/2021 TRACHEOTOMY performed by Erica Santiago MD at [facility] OR UPPER GASTROINTESTINAL ENDOSCOPY N/A 07/02/2021 EGD ESOPHAGOGASTRODUODENOSCOPY performed by Hari Wagner MD at [facility] Endoscopy Medications: QUEtiapine 25 mg Oral BID [...] Friends and Family: Not on file Attends Uatsdin Services: Not on file Active Member of [...] Decision Making-Imaging: No new imaging Medical Decision Wkkbbl-Zesrmyng-Yzexk: SARS-CoV-2, Rapid COVID-19, Rapid Collected: 07/13/21 9880 Result status: Final [facility] Reference range: Not Detected Value: [...] this assay. Fact sheet for Healthcare Providers: https://www.fda.gov/media/817833/downl oad Fact sheet for Patients: https://www.fda.gov/media/888747/downl oad Methodology: Isothermal Nucleic Acid Amplification Culture, Respiratory Order: [id number] Status: Final result Visible to patient: No (not released) Next appt: Today at 02:30 PM in Radiology (STV MRI RM 1 (1.5T)) Specimen Information: Sputum Aspirated 0 Result Notes Component 07/24/21 5899 Specimen Description .ASPIRATED SPUTUM Direct Exam < 10 EPITHELIAL CELLS/LPF Direct Exam >25 NEUTROPHILS/LPF Direct Exam MANY GRAM NEGATIVE RODS Abnormal Culture KLEBSIELLA AEROGENES HEAVY GROWTH Abnormal Culture NO NORMAL ROB Resulting Agency [facility] [place] Susceptibility Klebsiella aerogenes (1) Antibiotic [...] Patient's name: Meg Georges Patient's account/billing number: [id number] Patient's Date of : 1965 Age: 56 [...] patient was sent to the ED in [facility] from outpatient infusion center where she [...] Date 08/07/21 0000 - 08/07/21 2359 Shift [id number] 3934-2939 3264-7106 24 Hour Total INTAKE I.V.(mL/kg) 382.5(6.4) 382.5(6.4) [...] Humidification Source: [facility] Cuff Pressure (cm H2O): (loan supervisor) Skin Barrier Applied: (Mepilex placed after trach change) Lab Results Component Value Date PHART 7.406 07/06/2021 BJN9HGT 34.8 07/06/2021 PO2ART 279.0 07/06/2021 IZM6HJL 21.4 07/06/2021 G5OVFIPB 99.4 07/06/2021 FIO2 30.0 08/05/2021 Lactic Acid: [...] No results for input(s): LABIRON, TIBC, FERRITIN, CJBVEDEU64, FOLATE, OCCULTBLD in the last 72 hours. [...] MD Department of Internal Medicine/ Critical care [facility]) 08/07/2021, 7:58 AM Attending Physician Statement I [...] this chart was generated using voice recognition Kasumi-souon dictation software. Although every effort was made to ensure the accuracy of this automated windows desktop support, some errors in windows desktop support may have occurred. Neurosurgery NATE/Resident Daily Progress [...] tentatively on 08/22 Beatriz Cevallos DO Neurosurgeon [place] reconsult Meg Georges is a 56 [...] No results for input(s): LABIRON, TIBC, FERRITIN, WZMTDUFY67, FOLATE, OCCULTBLD in the last 72 hours. [...] or concerns. Valery Quinteros PGY-1 Internal Medicine [place], [place] 3:59 PM 08/06/2021 Associated attestation - [...] with appropriate modifications. Leigh Mcintosh MD Gastroenterology [facility], [place], [place] Images from the original note were not included. [facility] -Progress Note Today's Date and Time: [...] prior to surgical intervention. Infection Control Recommendations [place] Precautions Isolate for Covid until 07-23-21 Antimicrobial [...] through 08-20-21. Patient was transferred back to [facility] on 07-14-21 because of a positive [...] PHLEGMON performed by Alisia Cevallos DO at [facility] OR CHOLECYSTECTOMY EYE SURGERY [address] shunt for open angle glaucoma. MRI compatible- device is all silicone LAMINECTOMY 07/06/2021 Posterior C1, LEFT C2 RHIZOTOMY, EXPLORATION OF EPIDURAL PHLEGMON PICC INSERTION VASCULAR ACCESS TEAM 07/10/2021 SHOULDER SURGERY right TRACHEOSTOMY 07/30/2021 TRACHEOSTOMY N/A 07/30/2021 TRACHEOTOMY performed by Erica Santiago MD at [facility] OR UPPER GASTROINTESTINAL ENDOSCOPY N/A 07/02/2021 EGD ESOPHAGOGASTRODUODENOSCOPY performed by Hari Wagner MD at [facility] Endoscopy Medications: insulin glargine 15 Units SubCUTAneous [...] Friends and Family: Not on file Attends Uatsdin Services: Not on file Active Member of [...] Decision Making-Imaging: No new imaging Medical Decision Jfeuhl-Nxdzjilc-Uhske: SARS-CoV-2, Rapid COVID-19, Rapid Collected: 07/13/21 9154 Result status: Final Resulting lab: [facility] Reference range: Not Detected Value: [...] this assay. Fact sheet for Healthcare Providers: https://www.fda.gov/media/576449/downl oad Fact sheet for Patients: https://www.fda.gov/media/134213/downl oad Methodology: Isothermal Nucleic Acid Amplification Culture, Respiratory Order: [id number] Status: Final result Visible to patient: No (not released) Next appt: Today at 02:30 PM in Radiology (STV MRI RM 1 (1.5T)) Specimen Information: Sputum Aspirated 0 Result Notes Component 07/24/21 5840 Specimen Description .ASPIRATED SPUTUM Direct Exam < 10 EPITHELIAL CELLS/LPF Direct Exam >25 NEUTROPHILS/LPF Direct Exam MANY GRAM NEGATIVE RODS Abnormal Culture KLEBSIELLA AEROGENES HEAVY GROWTH Abnormal Culture NO NORMAL ROB Resulting Agency [facility] Susceptibility Klebsiella aerogenes (1) Antibiotic Interpretation Microscan [...] call with questions. Jany Francis, REBEKA - LAMINATING MACHINE OPERATOR ATTESTATION: I have discussed the case, including pertinent history and exam findings with the PHOTO MASK PROCESSOR. I have evaluated the History, physical findings and pictures of the patient and the coffey elements of the encounter have been performed by me. I have reviewed the laboratory data, other diagnostic studies and discussed them with the PHOTO MASK PROCESSOR. I have updated the medical record where necessary. I agree with the assessment, plan and orders as documented by the PHOTO MASK PROCESSOR. Seth Stokes MD. Critical Care Team - Daily Progress Note Date and time: 08/06/2021 7:27 AM Patient's name: Meg Georges Patient's account/billing number: [id number] Patient's Date of : 1965 Age: 56 [...] patient was sent to the ED in [facility] from outpatient infusion center where she [...] Date 08/06/21 0000 - 08/06/21 2359 Shift 9519-7480 5384-4615 6511-4868 24 Hour Total INTAKE I.V.(mL/kg) 244.5(4) 244.5(4) [...] Results Component Value Date PHART 7.406 07/06/2021 SWF2JLR 34.8 07/06/2021 PO2ART 279.0 07/06/2021 SSE2SNG 21.4 07/06/2021 J9ARXWJK 99.4 07/06/2021 FIO2 30.0 08/05/2021 Lactic Acid: [...] No results for input(s): LABIRON, TIBC, FERRITIN, AKJXGAHF85, FOLATE, OCCULTBLD in the last 72 hours. [...] MD Department of Internal Medicine/ Critical care [facility]) 08/06/2021, 7:27 AM Attending Physician Statement [...] this chart was generated using voice recognition Kasumi-souon dictation software. Although every effort was made to ensure the accuracy of this automated windows desktop support, some errors in windows desktop support may have occurred. Images from the original note were not included. Critical Care Team - Daily Progress Note Date and time: 08/05/2021 1:52 PM Patient's name: Meg Georges Patient's account/billing number: [id number] Patient's Date of : 1965 Age: 56 [...] degree Ulcer prophylaxis: [] PPI Agent, [x] U8Tpviy, [] Sucralfate, [] Other: Glycemic control: Controlled [...] patient was sent to the ED in [facility] from outpatient infusion center where she [...] Date 08/05/21 0000 - 08/05/21 2359 Shift [id number] 5754-6317 5050-1084 24 Hour Total INTAKE I.V.(mL/kg) 223.2(3.5) 86.6(1.4) [...] Results Component Value Date PHART 7.406 07/06/2021 HCY4NNG 34.8 07/06/2021 PO2ART 279.0 07/06/2021 GJD9ZGN 21.4 07/06/2021 S6CJULRV 99.4 07/06/2021 FIO2 30.0 08/05/2021 Lactic Acid: [...] No results for input(s): LABIRON, TIBC, FERRITIN, LDMFSUHI54, FOLATE, OCCULTBLD in the last 72 hours. [...] MD Department of Internal Medicine/ Critical care [facility]) 08/05/2021, 1:52 PM Associated attestation - Aniket Padron MD - 08/05/2021 4:24 PM EDT Attending Physician Statement I have discussed the case of Meg Georges, including pertinent history and exam findings with the resident/fellow/medical student/MANAGER MOBILE/PA. I have seen and examined the patient and the coffey elements of the encounter have been performed by me. I agree with the assessment, plan and orders as documented by the resident/fellow/medical student/MANAGER MOBILE/PA With changes made to the note as [...] were not included. [facility] -Progress Note Today's Date and Time: [...] placed 07/30/21 per ENT Infection Control Recommendations [place] Precautions Isolate for Covid until 07-23-21 Antimicrobial [...] through 08-20-21. Patient was transferred back to [facility] on 07-14-21 because of a positive [...] PHLEGMON performed by Alisia Cevallos DO at [facility] OR CHOLECYSTECTOMY EYE SURGERY [address] shunt for open angle glaucoma. MRI compatible- device is all silicone LAMINECTOMY 07/06/2021 Posterior C1, LEFT C2 RHIZOTOMY, EXPLORATION OF EPIDURAL PHLEGMON PICC INSERTION VASCULAR ACCESS TEAM 07/10/2021 SHOULDER SURGERY right TRACHEOSTOMY 07/30/2021 TRACHEOSTOMY N/A 07/30/2021 TRACHEOTOMY performed by Erica Santiago MD at [facility] OR UPPER GASTROINTESTINAL ENDOSCOPY N/A 07/02/2021 EGD ESOPHAGOGASTRODUODENOSCOPY performed by Hari Wagner MD at [facility] Endoscopy Medications: insulin glargine 20 Units SubCUTAneous [...] Friends and Family: Not on file Attends Uatsdin Services: Not on file Active Member of [...] Decision Making-Imaging: No new imaging Medical Decision Tazzif-Ryuexjnc-Qbjda: SARS-CoV-2, Rapid COVID-19, Rapid Collected: 07/13/21 3193 Result status: Final [facility] Reference range: Not Detected Value: [...] this assay. Fact sheet for Healthcare Providers: https://www.fda.gov/media/092765/downl oad Fact sheet for Patients: https://www.fda.gov/media/024856/downl oad Methodology: Isothermal Nucleic Acid Amplification Culture, Respiratory Order: [id number] Status: Final result Visible to patient: No (not released) Next appt: Today at 02:30 PM in Radiology (STV MRI RM 1 (1.5T)) Specimen Information: Sputum Aspirated 0 Result Notes Component 07/24/21 2986 Specimen Description .ASPIRATED SPUTUM Direct Exam < 10 EPITHELIAL CELLS/LPF Direct Exam >25 NEUTROPHILS/LPF Direct Exam MANY GRAM NEGATIVE RODS Abnormal Culture KLEBSIELLA AEROGENES HEAVY GROWTH Abnormal Culture NO NORMAL ROB Resulting Agency [facility] Susceptibility Klebsiella aerogenes (1) Antibiotic Interpretation Microscan Method Status aztreonam Sensitive <=1 BACTERIAL SUSCEPTIBILITY PANEL BECKY Final ceFAZolin Resistant BACTERIAL SUSCEPTIBILITY PANEL BCEKY Final cefTRIAXone Sensitive <=1 BACTERIAL SUSCEPTIBILITY PANEL [...] were not included. [facility] -Progress Note Today's Date and Time: [...] placed 07/30/21 per ENT Infection Control Recommendations [place] Precautions Isolate for Covid until 07-23-21 Antimicrobial [...] through 08-20-21. Patient was transferred back to [facility] on 07-14-21 because of a positive [...] PHLEGMON performed by Alisia Cevallos DO at [facility] OR CHOLECYSTECTOMY EYE SURGERY [address] shunt for open angle glaucoma. MRI compatible- device is all silicone LAMINECTOMY 07/06/2021 Posterior C1, LEFT C2 RHIZOTOMY, EXPLORATION OF EPIDURAL PHLEGMON PICC INSERTION VASCULAR ACCESS TEAM 07/10/2021 SHOULDER SURGERY right TRACHEOSTOMY 07/30/2021 TRACHEOSTOMY N/A 07/30/2021 TRACHEOTOMY performed by Erica Santiago MD at [facility] OR UPPER GASTROINTESTINAL ENDOSCOPY N/A 07/02/2021 EGD ESOPHAGOGASTRODUODENOSCOPY performed by Hari Wagner MD at [facility] Endoscopy Medications: insulin glargine 20 Units SubCUTAneous [...] Friends and Family: Not on file Attends Uatsdin Services: Not on file Active Member of [...] Decision Making-Imaging: No new imaging Medical Decision Digekf-Znbbnmpi-Jkiiv: SARS-CoV-2, Rapid COVID-19, Rapid Collected: 07/13/21 2996 Result status: Final Resulting lab: [facility] Reference range: Not Detected Value: [...] this assay. Fact sheet for Healthcare Providers: https://www.fda.gov/media/993282/downl oad Fact sheet for Patients: https://www.fda.gov/media/756187/downl oad Methodology: Isothermal Nucleic Acid Amplification Culture, Respiratory Order: [id number] Status: Final result Visible to patient: No [...] Abnormal Culture NO NORMAL ROB Resulting Agency [facility] Susceptibility Klebsiella aerogenes (1) Antibiotic Interpretation Microscan [...] not included. Palliative Care Progress Note NAME: eMg Georges AGE: 56 y.o. GENDER: female : [...] PHLEGMON performed by Alisia Cevallos DO at [facility] OR CHOLECYSTECTOMY EYE SURGERY [address] shunt for open angle glaucoma. MRI compatible- device is all silicone LAMINECTOMY 07/06/2021 Posterior C1, LEFT C2 RHIZOTOMY, EXPLORATION OF EPIDURAL PHLEGMON PICC INSERTION VASCULAR ACCESS TEAM 07/10/2021 SHOULDER SURGERY right TRACHEOSTOMY 07/30/2021 TRACHEOSTOMY N/A 07/30/2021 TRACHEOTOMY performed by Erica Santiago MD at [facility] OR UPPER GASTROINTESTINAL ENDOSCOPY N/A 07/02/2021 EGD ESOPHAGOGASTRODUODENOSCOPY performed by Hari Wagner MD at [facility] Endoscopy FAMILY HISTORY Family History Problem Relation [...] in the care of Ms. Georges . [facility] Palliative Care Number [phone] [facility] Palliative Care Number [phone] [facility] Palliative Care Number [phone] Please call with any palliative questions or [...] 5 % solution 100 mL/hr IntraVENous PRN Skylar Coyle MD magnesium sulfate 1000 mg in [...] follow up with adult ENT provider in [facility]. Follow-up: Your follow up appointment can [...] and Dr. Angel Krueger [address] [facility] [address] OPTION 2: [facility] [address] [place] [address] Appointment scheduling: ISRRAEL MCGRATH MD Pediatric Otolaryngology-Head and Neck Surgery [facility] Otolaryngology group Office ph# [phone] Also available in [employer] Pt trach changed without incident, #7.0 XLT, per Dr. Mcgrath. Trach site red, Mepilex to be placed. Pt tolerated well. Images from the original note were not included. Critical Care Team - Daily Progress Note Date and time: 08/04/2021 8:43 AM Patient's name: Meg Georges Patient's account/billing number: [id number] Patient's Date of : 1965 Age: 56 [...] no Ulcer prophylaxis: [x] PPI Agent, [] J4Snzbb, [] Sucralfate, [] Other: Glycemic control: controlled; [...] patient was sent to the ED in [facility] from outpatient infusion center where she [...] INTUBATED, ET TUBE MARKING AT LOWER LIP: [facility] SEDATION: Precedex gtt [] Propofol gtt [...] Date 08/04/21 0000 - 08/04/21 2359 Shift 9000-1052 1036-6108 9383-3462 24 Hour Total INTAKE I.V.(mL/kg) 376.1(6) 376.1(6) [...] CO2: 37 (%) Position: Semi-Simon's Humidification Source: [facility] Results Component Value Date PHART 7.406 07/06/2021 WXF4AYV 34.8 07/06/2021 PO2ART 279.0 07/06/2021 TPF6PCO 21.4 07/06/2021 Z7WWUGNP 99.4 07/06/2021 FIO2 30.0 08/03/2021 Lactic Acid: [...] No results for input(s): LABIRON, TIBC, FERRITIN, YCZCRFPM27, FOLATE, OCCULTBLD in the last 72 hours. [...] MD Department of Internal Medicine/ Critical care [facility]) 08/04/2021, 8:43 AM Associated attestation - Aniket Padron MD - 08/04/2021 1:39 PM EDT Attending Physician Statement I have discussed the case of Meg Georges, including pertinent history and exam findings with the resident/fellow/medical student/MANAGER MOBILE/PA. I have seen and examined the patient and the coffey elements of the encounter have been performed by me. I agree with the assessment, plan and orders as documented by the resident/fellow/medical student/MANAGER MOBILE/PA With changes made to the note as [...] Status: At risk for malnutrition (Comment) (07/30/21 3176) Context: Acute Illness Findings of the 6 clinical characteristics of malnutrition: Energy Intake: No significant decrease in energy intake (with use of TF) Weight Loss: No significant weight loss Body Fat Loss: No significant body fat loss Muscle Mass Loss: Unable to assess Fluid Accumulation: Mild Extremities,Generalized Supervisor Counseling And Guidance Strength: Not Performed Nutrition Assessment: Remains intubated [...] Anthropometric Measures: Height: 5' 5 (165.1 cm) [place] Body Weight (IBW): 125 lbs (57 kg) [...] determine Ashwini Felix MS, RD, LD Contact: [id number] Otolaryngology staff note POD 4 s/p tracheostomy placement Patient was seen and examined this morning On vent, sedated, though weaning 7.0 Shiley XLT cuffed, in good position. Some dried blood around trach but there is no peristomal wound breakdown c-collar still in place Plan for trach change on POD 5 (Friday08/04/21) Sonya Barber APRN - [place] Pediatric Otolaryngology-Head and Neck Surgery [facility] Otolaryngology group Office ph# [phone] Also available in Koko Images from the original note were not included. [facility] -Progress Note Today's Date and Time: [...] placed 07/30/21 per ENT Infection Control Recommendations [place] Precautions Isolate for Covid until 07-23-21 Antimicrobial [...] through 08-20-21. Patient was transferred back to [facility] on 07-14-21 because of a positive [...] PHLEGMON performed by Alisia Cevallos DO at [facility] OR CHOLECYSTECTOMY EYE SURGERY [address] shunt for open angle glaucoma. MRI compatible- device is all silicone LAMINECTOMY 07/06/2021 Posterior C1, LEFT C2 RHIZOTOMY, EXPLORATION OF EPIDURAL PHLEGMON PICC INSERTION VASCULAR ACCESS TEAM 07/10/2021 SHOULDER SURGERY right TRACHEOSTOMY 07/30/2021 TRACHEOSTOMY N/A 07/30/2021 TRACHEOTOMY performed by Erica Santiago MD at [facility] OR UPPER GASTROINTESTINAL ENDOSCOPY N/A 07/02/2021 EGD ESOPHAGOGASTRODUODENOSCOPY performed by Hari Wagner MD at [facility] Endoscopy Medications: insulin lispro 0-18 Units SubCUTAneous [...] Friends and Family: Not on file Attends Uatsdin Services: Not on file Active Member of [...] are unchanged. Suggest ultrasound correlation. Medical Decision Hnzuco-Fntpdwyy-Ucjtv: SARS-CoV-2, Rapid COVID-19, Rapid Collected: 07/13/21 7900 Result status: Final Resulting lab: [facility] Reference range: Not Detected Value: [...] this assay. Fact sheet for Healthcare Providers: https://www.fda.gov/media/804156/downl oad Fact sheet for Patients: https://www.fda.gov/media/152931/downl oad Methodology: Isothermal Nucleic Acid Amplification Culture, Respiratory Order: [id number] Status: Final result Visible to patient: No [...] Abnormal Culture NO NORMAL ROB Resulting Agency [facility] Susceptibility Klebsiella aerogenes (1) Antibiotic [...] data were reviewed Discussed with nursing Staff, materials planner/production planner Infection Control and Prevention measures reviewed All prior entries were reviewed Administer medications as ordered Prognosis: Very Guarded Discharge planning reviewed Follow up as outpatient. Thank you for allowing us to participate in the care of this patient. Please call with questions. Jany Francis, PHOTO MASK PROCESSOR - LAMINATING MACHINE OPERATOR ATTESTATION: I have discussed the case, including pertinent history and exam findings with the PHOTO MASK PROCESSOR. I have evaluated the History, physical findings and pictures of the patient and the coffey elements of the encounter have been performed by me. I have reviewed the laboratory data, other diagnostic studies and discussed them with the PHOTO MASK PROCESSOR. I have updated the medical record where necessary. I agree with the assessment, plan and orders as documented by the PHOTO MASK PROCESSOR. Seth Stokes MD. Pager: - Office: Images from the original note were not included. Critical Care Team - Daily Progress Note Date and time: 08/03/2021 7:48 AM Patient's name: Meg Georges Patient's account/billing number: [id number] Patient's Date of : 1965 Age: 56 [...] yes Ulcer prophylaxis: [] PPI Agent, [x] R2Lhkle, [] Sucralfate, [] Other: Glycemic control: high ISS, lantus 16 subq is held Spontaneous breathing trial: trach Bowel regimen/urine output: milk of mag Indwelling catheter/lines: yes De-escalation: yes CURRENT VENTILATION STATUS: [x] Ventilator [] BIPAP [] Nasal Cannula [] Room Air IF INTUBATED, ET TUBE MARKING AT LOWER LIP: [facility] SEDATION: Precedex gtt [] Propofol gtt [...] Date 08/03/21 0000 - 08/03/21 2359 Shift 9466-4877 8388-1798 6739-9394 24 Hour Total INTAKE I.V.(mL/kg) 93.8(1.5) 93.8(1.5) [...] CO2: 30 (%) Position: Semi-Simon's Humidification Source: [facility] Lab Results Component Value Date PHART 7.406 07/06/2021 LLE7IPC 34.8 07/06/2021 PO2ART 279.0 07/06/2021 VTT3HTY 21.4 07/06/2021 J4BVGRWU 99.4 07/06/2021 FIO2 30.0 08/03/2021 Lactic Acid: [...] No results for input(s): LABIRON, TIBC, FERRITIN, IANKGFYJ63, FOLATE, OCCULTBLD in the last 72 hours. [...] MD Department of Internal Medicine/ Critical care [facility]) 08/03/2021, 7:48 AM Associated attestation - Aniket Padron MD - 08/03/2021 3:44 PM EDT Attending Physician Statement I have discussed the case of Meg Georges, including pertinent history and exam findings with the resident/fellow/medical student/MANAGER MOBILE/PA. I have seen and examined the patient and the coffey elements of the encounter have been performed by me. I agree with the assessment, plan and orders as documented by the resident/fellow/medical student/MANAGER MOBILE/PA With changes made to the note as [...] cm^3 Wound Healing % 79 Wound Assessment [place]/red;Fibrinous Drainage Amount Scant Drainage Description Serosanguinous Odor [...] Coyle MD Pediatric Otolaryngology-Head and Neck Surgery [facility] Otolaryngology group Office ph# [phone] Also available in PerfectServe Images from the original note were not included. [facility] -Progress Note Today's Date and Time: [...] placed 07/30/21 per ENT Infection Control Recommendations [place] Precautions Isolate for Covid until 07-23-21 Antimicrobial [...] through 08-20-21. Patient was transferred back to [facility] on 07-14-21 because of a positive [...] RHIZOTOMY, EXPLORATION OF EPIDURAL PHLEGMON performed by Ailsia Cevallos DO at [facility] OR CHOLECYSTECTOMY EYE SURGERY [address] shunt for open angle glaucoma. MRI compatible- device is all silicone LAMINECTOMY 07/06/2021 Posterior C1, LEFT C2 RHIZOTOMY, EXPLORATION OF EPIDURAL PHLEGMON PICC INSERTION VASCULAR ACCESS TEAM 07/10/2021 SHOULDER SURGERY right TRACHEOSTOMY 07/30/2021 TRACHEOSTOMY N/A 07/30/2021 TRACHEOTOMY performed by Erica Santiago MD at [facility] OR UPPER GASTROINTESTINAL ENDOSCOPY N/A 07/02/2021 EGD ESOPHAGOGASTRODUODENOSCOPY performed by Hari Wagner MD at [facility] Endoscopy Medications: insulin lispro 0-18 Units SubCUTAneous [...] Friends and Family: Not on file Attends Uatsdin Services: Not on file Active Member of [...] are unchanged. Suggest ultrasound correlation. Medical Decision Yihatc-Bbdirsyz-Lordr: SARS-CoV-2, Rapid COVID-19, Rapid Collected: 07/13/21 5133 Result status: Final [facility] Reference range: Not Detected Value: DETECTED [...] this assay. Fact sheet for Healthcare Providers: https://www.fda.gov/media/658358/downl oad Fact sheet for Patients: https://www.fda.gov/media/580290/downl oad Methodology: Isothermal Nucleic Acid Amplification Culture, Respiratory Order: [id number] Status: Final result Visible to patient: No (not released) Next appt: Today at 02:30 PM in Radiology (STV MRI RM 1 (1.5T)) Specimen Information: Sputum Aspirated 0 Result Notes Component 07/24/21 1885 Specimen Description .ASPIRATED SPUTUM Direct Exam < 10 EPITHELIAL CELLS/LPF Direct Exam >25 NEUTROPHILS/LPF Direct Exam MANY GRAM NEGATIVE RODS Abnormal Culture KLEBSIELLA AEROGENES HEAVY GROWTH Abnormal Culture NO NORMAL ROB Resulting Agency [facility] Susceptibility Klebsiella aerogenes (1) Antibiotic [...] data were reviewed Discussed with nursing Staff, materials planner/production planner Infection Control and Prevention measures reviewed All prior entries were reviewed Administer medications as ordered Prognosis: Very Guarded Discharge planning reviewed Follow up as outpatient. Thank you for allowing us to participate in the care of this patient. Please call with questions. Jany Francis, PHOTO MASK PROCESSOR - LAMINATING MACHINE OPERATOR ATTESTATION: I have discussed the case, including pertinent history and exam findings with the PHOTO MASK PROCESSOR. I have evaluated the History, physical findings and pictures of the patient and the coffey elements of the encounter have been performed by me. I have reviewed the laboratory data, other diagnostic studies and discussed them with the PHOTO MASK PROCESSOR. I have updated the medical record where necessary. I agree with the assessment, plan and orders as documented by the PHOTO MASK PROCESSOR. Seth Stokes MD. Pager: - Office: Critical Care Team - Daily Progress Note Date and time: 08/02/2021 7:50 AM Patient's name: Meg Georges Patient's account/billing number: [id number] Patient's Date of : 1965 Age: 56 [...] yes Ulcer prophylaxis: [] PPI Agent, [x] H7Ecxso, [] Sucralfate, [] Other: Glycemic control: high insulin Spontaneous breathing trial: no Bowel regimen/urine output: milk of mag Indwelling catheter/lines: yes De-escalation: yes AWAKE & FOLLOWING COMMANDS: [x] No [] Yes CURRENT VENTILATION STATUS: [x] Ventilator [] BIPAP [] Nasal Cannula [] Room Air IF INTUBATED, ET TUBE MARKING AT LOWER LIP: [facility] SEDATION: Fentanyl gtt [x] Propofol gtt [] [...] Date 08/02/21 0000 - 08/02/21 2359 Shift [id number] [id number] 0499-4189 24 Hour Total INTAKE I.V.(mL/kg) 109.3(1.8) 109.3(1.8) [...] CO2: 32 (%) Position: Semi-Simon's Humidification Source: [facility] Results Component Value Date PHART 7.406 07/06/2021 [id number] 34.8 07/06/2021 PO2ART 279.0 07/06/2021 FRG3EOK 21.4 07/06/2021 [id number] 99.4 07/06/2021 FIO2 30.0 08/02/2021 Lactic Acid: [...] No results for input(s): LABIRON, TIBC, FERRITIN, ROHAAZXN09, FOLATE, OCCULTBLD in the last 72 hours. [...] MD Department of Internal Medicine/ Critical care [facility]) 08/02/2021, 7:50 AM Associated attestation - Aniket Padron MD - 08/02/2021 4:40 PM EDT Attending Physician Statement I have discussed the case of Meg Georges, including pertinent history and exam findings with the resident/fellow/medical student/MANAGER MOBILE/PA. I have seen and examined the patient and the coffey elements of the encounter have been performed by me. I agree with the assessment, plan and orders as documented by the resident/fellow/medical student/MANAGER MOBILE/PA With changes made to the note as [...] Coyle MD Pediatric Otolaryngology-Head and Neck Surgery [facility] Otolaryngology group Office ph# [phone] Also available in Koko Images from the original note were not [...] will continue to follow. Healthcare power of civil rights attorney placed on patient's chart. OVERNIGHT EVENTS: [...] PHLEGMON performed by Alisia Cevallos DO at [facility] OR CHOLECYSTECTOMY EYE SURGERY [address] shunt for open angle glaucoma. MRI compatible- device is all silicone LAMINECTOMY 07/06/2021 Posterior C1, LEFT C2 RHIZOTOMY, EXPLORATION OF EPIDURAL PHLEGMON PICC INSERTION VASCULAR ACCESS TEAM 07/10/2021 SHOULDER SURGERY right TRACHEOSTOMY 07/30/2021 TRACHEOSTOMY N/A 07/30/2021 TRACHEOTOMY performed by Erica Santiago MD at [facility] OR UPPER GASTROINTESTINAL ENDOSCOPY N/A 07/02/2021 EGD ESOPHAGOGASTRODUODENOSCOPY performed by Hari Wagner MD at [facility] Endoscopy FAMILY HISTORY Family History Problem Relation [...] of Ms. Georges . Palliative care number [phone] Please call with any palliative questions or concerns. Palliative Care Team is available via perfect serve or via phone. Images from the original note were not included. [facility] -Progress Note Today's Date and Time: [...] placed 07/30/21 per ENT Infection Control Recommendations [place] Precautions Isolate for Covid until 07-23-21 Antimicrobial [...] through 08-20-21. Patient was transferred back to [facility] on 07-14-21 because of a positive [...] PHLEGMON performed by Alisia Cevallos DO at [facility] OR CHOLECYSTECTOMY EYE SURGERY [address] shunt for open angle glaucoma. MRI compatible- device is all silicone LAMINECTOMY 07/06/2021 Posterior C1, LEFT C2 RHIZOTOMY, EXPLORATION OF EPIDURAL PHLEGMON PICC INSERTION VASCULAR ACCESS TEAM 07/10/2021 SHOULDER SURGERY right TRACHEOSTOMY 07/30/2021 TRACHEOSTOMY N/A 07/30/2021 TRACHEOTOMY performed by Erica Santiago MD at [facility] OR UPPER GASTROINTESTINAL ENDOSCOPY N/A 07/02/2021 EGD ESOPHAGOGASTRODUODENOSCOPY performed by Hari Wagner MD at [facility] Endoscopy Medications: insulin lispro 0-12 Units SubCUTAneous [...] Friends and Family: Not on file Attends Uatsdin Services: Not on file Active Member of [...] are unchanged. Suggest ultrasound correlation. Medical Decision Nsgfrk-Idqiuilj-Mzpsu: SARS-CoV-2, Rapid COVID-19, Rapid Collected: 07/13/21 6565 Result status: Final [facility] Reference range: Not Detected Value: [...] this assay. Fact sheet for Healthcare Providers: https://www.fda.gov/media/693477/downl oad Fact sheet for Patients: https://www.fda.gov/media/031893/downl oad Methodology: Isothermal Nucleic Acid Amplification Culture, Respiratory Order: [id number] Status: Final result Visible to patient: No (not released) Next appt: Today at 02:30 PM in Radiology (STV MRI RM 1 (1.5T)) Specimen Information: Sputum Aspirated 0 Result Notes Component 07/24/21 6544 Specimen Description .ASPIRATED SPUTUM Direct Exam < 10 EPITHELIAL CELLS/LPF Direct Exam >25 NEUTROPHILS/LPF Direct Exam MANY GRAM NEGATIVE RODS Abnormal Culture KLEBSIELLA AEROGENES HEAVY GROWTH Abnormal Culture NO NORMAL ROB [facility]ing [facility] Susceptibility Klebsiella aerogenes (1) Antibiotic Interpretation Microscan [...] data were reviewed Discussed with nursing Staff, materials planner/production planner Infection Control and Prevention measures reviewed All prior entries were reviewed Administer medications as ordered Prognosis: Very Guarded Discharge planning reviewed Follow up as outpatient. Thank you for allowing us to participate in the care of this patient. Please call with questions. Jany Francis, PHOTO MASK PROCESSOR - LAMINATING MACHINE OPERATOR ATTESTATION: I have discussed the case, including pertinent history and exam findings with the PHOTO MASK PROCESSOR. I have evaluated the History, physical findings and pictures of the patient and the coffey elements of the encounter have been performed by me. I have reviewed the laboratory data, other diagnostic studies and discussed them with the PHOTO MASK PROCESSOR. I have updated the medical record where necessary. I agree with the assessment, plan and orders as documented by the PHOTO MASK PROCESSOR. Seth Stokes MD. Pager: - Office: Critical Care Team - Daily Progress Note Date and time: 08/01/2021 8:07 AM Patient's name: Meg Georges Patient's account/billing number: [id number] Patient's Date of : 1965 Age: 56 [...] yes Ulcer prophylaxis: [] PPI Agent, [x] [id number], [] Sucralfate, [] Other: Glycemic control: medium [...] Date 08/01/21 0000 - 08/01/21 2359 Shift [id number] 5748-9057 4887-0145 24 Hour Total INTAKE I.V.(mL/kg) 159.6(2.6) 159.6(2.6) [...] CO2: 32 (%) Position: Semi-Simon's Humidification Source: [facility] Lab Results Component Value Date PHART 7.406 07/06/2021 JKX2RYV 34.8 07/06/2021 PO2ART 279.0 07/06/2021 OCR3VBI 21.4 07/06/2021 W7JETTMK 99.4 07/06/2021 FIO2 30.0 07/30/2021 Lactic Acid: [...] No results for input(s): LABIRON, TIBC, FERRITIN, XIGYDQUT95, FOLATE, OCCULTBLD in the last 72 hours. [...] MD Department of Internal Medicine/ Critical care [facility]) 08/01/2021, 8:07 AM Associated attestation - Aniket Padron MD - 08/01/2021 7:15 PM EDT Attending Physician Statement I have discussed the case of Meg Georges, including pertinent history and exam findings with the resident/fellow/medical student/MANAGER MOBILE/PA. I have seen and examined the patient and the coffey elements of the encounter have been performed by me. I agree with the assessment, plan and orders as documented by the resident/fellow/medical student/MANAGER MOBILE/PA With changes made to the note as [...] were not included. [facility] -Progress Note Today's Date and Time: [...] placed 07/30/21 per ENT Infection Control Recommendations [place] Precautions Isolate for Covid until 07-23-21 Antimicrobial [...] through 08-20-21. Patient was transferred back to [facility] on 07-14-21 because of a positive [...] PHLEGMON performed by Alisia Cevallos DO at [facility] OR CHOLECYSTECTOMY EYE SURGERY [address]unt for open angle glaucoma. MRI compatible- device is all silicone LAMINECTOMY 07/06/2021 Posterior C1, LEFT C2 RHIZOTOMY, EXPLORATION OF EPIDURAL PHLEGMON PICC INSERTION VASCULAR ACCESS TEAM 07/10/2021 SHOULDER SURGERY right TRACHEOSTOMY 07/30/2021 TRACHEOSTOMY N/A 07/30/2021 TRACHEOTOMY performed by Erica Santiago MD at [facility] OR UPPER GASTROINTESTINAL ENDOSCOPY N/A 07/02/2021 EGD ESOPHAGOGASTRODUODENOSCOPY performed by Hari Wagner MD at [facility] Endoscopy Medications: insulin lispro 0-12 Units SubCUTAneous [...] Friends and Family: Not on file Attends Uatsdin Services: Not on file Active Member of [...] are unchanged. Suggest ultrasound correlation. Medical Decision Ldfuss-Upkfzsoj-Ynzbu: SARS-CoV-2, Rapid COVID-19, Rapid Collected: 07/13/21 2951 Result status: Final [facility]ing [facility] Reference range: Not Detected Value: [...] this assay. Fact sheet for Healthcare Providers: https://www.fda.gov/media/286214/downl oad Fact sheet for Patients: https://www.fda.gov/media/419593/downl oad Methodology: Isothermal Nucleic Acid Amplification Culture, Respiratory Order: [id number] Status: Final result Visible to patient: No (not released) Next appt: Today at 02:30 PM in Radiology (STV MRI RM 1 (1.5T)) Specimen Information: Sputum Aspirated 0 Result Notes Component 07/24/21 7625 Specimen Description .ASPIRATED SPUTUM Direct Exam < 10 EPITHELIAL CELLS/LPF Direct Exam >25 NEUTROPHILS/LPF Direct Exam MANY GRAM NEGATIVE RODS Abnormal Culture KLEBSIELLA AEROGENES HEAVY GROWTH Abnormal Culture NO NORMAL ROB Resulting Agency [facility] Susceptibility Klebsiella aerogenes (1) Antibiotic [...] data were reviewed Discussed with nursing Staff, materials planner/production planner Infection Control and Prevention measures reviewed All prior entries were reviewed Administer medications as ordered Prognosis: Very Guarded Discharge planning reviewed Follow up as outpatient. Thank you for allowing us to participate in the care of this patient. Please call with questions. Jany Francis, PHOTO MASK PROCESSOR - LAMINATING MACHINE OPERATOR ATTESTATION: I have discussed the case, including pertinent history and exam findings with the PHOTO MASK PROCESSOR. I have evaluated the History, physical findings and pictures of the patient and the coffey elements of the encounter have been performed by me. I have reviewed the laboratory data, other diagnostic studies and discussed them with the PHOTO MASK PROCESSOR. I have updated the medical record where necessary. I agree with the assessment, plan and orders as documented by the PHOTO MASK PROCESSOR. Seth Stokes MD. Pager: - Office: Images from the original note were not included. Occupational Therapy [facility] Occupational Therapy Not Seen Note DATE: [...] 0724 sodium chloride flush 0.9 % [facility] Phone: 07-19-2021 Hospital Discharge instructions Anna Veliz [...] Contact Information Primary Emergency Contact: Hina [facility] Mobile Relation: Brother/Sister Past Surgical History: Past Surgical History: Procedure Laterality Date ACHILLES TENDON SURGERY left BACK SURGERY L 4 and 5 1995, 1996 CERVICAL FUSION N/A 07/06/2021 POSTERIOR CERVICAL C1 LAMINECTOMY. LEFT C2 RHIZOTOMY, EXPLORATION OF EPIDURAL PHLEGMON performed by Alisia Cevallos DO at [facility] OR CHOLECYSTECTOMY EYE SURGERY [address]unt for open angle glaucoma. MRI compatible- device is all silicone LAMINECTOMY 07/06/2021 Posterior C1, LEFT C2 RHIZOTOMY, EXPLORATION OF EPIDURAL PHLEGMON PICC INSERTION VASCULAR ACCESS TEAM 07/10/2021 SHOULDER SURGERY right TRACHEOSTOMY 07/30/2021 TRACHEOSTOMY N/A 07/30/2021 TRACHEOTOMY performed by Erica Santiago MD at [facility] OR UPPER GASTROINTESTINAL ENDOSCOPY N/A 07/02/2021 EGD ESOPHAGOGASTRODUODENOSCOPY performed by Hari Wagner MD at [facility] Endoscopy Immunization History: There is no immunization [...] Acute respiratory failure with hypoxemia ([facility]) J96.01 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 ACP (advance [...] Dependent Dressing Dependent Toileting Dependent Feeding Dependent Radiophone Operator Dependent Med Delivery crushed and via right [...] Healing % 79 08/02/21 1537 Wound Assessment Denuded;[place]/red 08/10/21 1200 Drainage Amount Scant 08/10/21 1200 [...] 24 Discharging to Facility/ Agency Name: [facility] Address: [address] [place] [address] Dialysis Facility (if applicable) Name: Address: Dialysis Schedule: Phone: Fax: Rabies Inspector/Window Tinter signature: ICIAN SECTION Prognosis: Fair Condition at [...] the diagnosis listed and that she requires Correction Facility for less 30 days. Update Admission [...] PCP as outpatient. documented in this encounter Bailey[facility] Phone: 07-14-2021 History of Present illness Narrative Called and spoke with Jess GARVIN and gave report. Lunch tray provided - puree and thickened liquids. Pt sitting up and eating at this time. Denies further needs. Called and updated sister, Hina with status. Pt accepted to [facility]- bed pending. documented in this encounter [facility] Phone: 07-10-2021 History of Present illness Narrative [...] Urology Speech Language Pathology Speech Language Pathology [facility] Cognitive/Dysphagia Treatment Note Date: 07/10/2021 Patient s Name: Meg Georges Patient Active Problem List Diagnosis Code Cellulitis of left finger L03.012 Altered mental state R41.82 Encephalitis G04.90 Encephalopathy G93.40 CIDP (chronic inflammatory demyelinating polyneuropathy) ([facility]) G61.81 Sepsis ([facility]) A41.9 Bacteremia R78.81 Hypothyroidism E03.9 Hypokalemia E87.6 Type 2 diabetes mellitus with diabetic polyneuropathy ([facility]) E11.42 Primary hypertension I10 Upper GI bleed K92.2 Non-intractable vomiting R11.10 Unintentional weight loss R63.4 Acute metabolic encephalopathy G93.41 MSSA (methicillin susceptible Staphylococcus aureus) septicemia ([facility]) A41.01 CRP elevated R79.82 Bandemia D72.825 Allergy to multiple antibiotics Z88.1 Pyogenic inflammation of bone ([facility]) M86.9 Acute intractable headache R51.9 Acute osteomyelitis of cervical spine ([facility]) M46.22 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 G06.1 Pain: 0/10 Cognitive Treatment Treatment time: 0521-9935 Subjective: [] Alert [x] Cooperative [] Confused [...] recommended at discharge. Completed by Chaitanya Pratt Hide Measuring Machine Operator Clinician Co-signed byHina Sawyer M.S. CCC/BOARD OF EDUCATION SECRETARY Images from the original note were not included. [facility] Internal Medicine Teaching Residency Program Inpatient Daily Progress Note __ Patient: Meg Georges Date of : 1965 Acct: [id number] Room: 0146/0146-01 Admit date: 06/28/2021 Today's date: [...] neuropathy follows neurology. Presented to ED from [facility], found confused outside. Imaging negative. She complains [...] CIDP (chronic inflammatory demyelinating polyneuropathy) ([facility]) Bacteremia Hypothyroidism Hypokalemia Type 2 diabetes mellitus with diabetic polyneuropathy ([facility]) Primary hypertension Upper GI bleed Non-intractable [...] antihypertensives. Elevated troponins: Downtrended likely type II IN Hypokalemia: Repeat potassium level and replace if needed Left Vocal cord paralysis: Ongoing x 1 month. ENT on board. Plan for injection laryngoplasty for voice/swallowing improvement at some point. Passed swallow study. Diet: Easy to chew DVT ppx : Lovenox held GI ppx: None PT/OT/SW: Consulted Discharge Planning: In process Rufus Argueta MD Internal Medicine Resident, PGY- 1 [facility]; [place], [place] 07/10/2021, 7:18 AM Associated attestation - [...] were not included. [facility] - Infectious diseases evaluation admission date [...] line due to nafciline Infection Control Recommendations [place] Precautions Contact Isolation Antimicrobial Stewardship Recommendations Simplification of therapy Targeted therapy History of Present Illness: Initial history: Meg Georges is a 56 y.o.-year-old female presented to the ED for altered mental status. Patient is currently admitted under neurology service. Patient presented from a [facility] after an episode of confusion overnight where she was found wandering outside her [facility]. She had CT head done at outside facility which did not show any acute changes, telestroke was consulted for the concern of confusion, they recommended transfer to [facility] for MRI of the brain. BC SA MSSA and LP neg CRP elevated and WBc up - creat normal 06/29 mentally recovered Neck pain x 1 mo Left sole callus was infected x 2 months ago at the [place] She gets her IvIg through a periph [...] PHLEGMON performed by Alisia Cevallos DO at [facility] OR CHOLECYSTECTOMY EYE SURGERY [address] shunt for open angle glaucoma. MRI compatible- device is all silicone LAMINECTOMY 07/06/2021 Posterior C1, LEFT C2 RHIZOTOMY, EXPLORATION OF EPIDURAL PHLEGMON SHOULDER SURGERY right UPPER GASTROINTESTINAL ENDOSCOPY N/A 07/02/2021 EGD ESOPHAGOGASTRODUODENOSCOPY performed by Hari Wagner MD at [facility] Endoscopy Medications: levothyroxine 100 mcg Oral Daily [...] Friends and Family: Not on file Attends Uatsdin Services: Not on file Active Member of [...] Crowe MD Office: Perfect serve / office [phone] Neurosurgery NATE/Resident Daily Progress Note Chief Complaint [...] 120 (H) 06/28/2021 Culture, Anaerobic and Aerobic [[id number]] Collected: 07/06/21 214 Updated: 07/09/21 0731 Specimen [...] Neurosurgeon Speech Language Pathology Speech Language Pathology [facility] Cognitive Treatment Note Date: 07/09/2021 Patient s Name: Meg Georges Diagnosis: Patient Active Problem List Diagnosis Code Cellulitis of left finger L03.012 Altered mental state R41.82 Encephalitis G04.90 Encephalopathy G93.40 CIDP (chronic inflammatory demyelinating polyneuropathy) ([facility]) G61.81 Sepsis ([facility]) A41.9 Bacteremia R78.81 Hypothyroidism E03.9 Hypokalemia E87.6 Type 2 diabetes mellitus with diabetic polyneuropathy ([facility]) E11.42 Primary hypertension I10 Upper GI bleed K92.2 Non-intractable vomiting R11.10 Unintentional weight loss R63.4 Acute metabolic encephalopathy G93.41 MSSA (methicillin susceptible Staphylococcus aureus) septicemia ([facility]) A41.01 CRP elevated R79.82 Bandemia D72.825 Allergy to multiple antibiotics Z88.1 Pyogenic inflammation of bone ([facility]) M86.9 Acute intractable headache R51.9 Acute osteomyelitis of cervical spine ([facility]) M46.22 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 G06.1 Pain: 8/10 Cognitive Treatment Treatment time: 5175-3476 Subjective: [x] Alert [x] Cooperative [] Confused [] Agitated [] Lethargic Objective/Assessment: Recall: Delayed recall; 1/4 increased to 2/4 with min verbal cue, 1/4 increased to 3/4 with min verbal cues Word list retention: Word placement; 3/11 increased to 9/11 with repetitions Functional memory: Paragraph facts; 3/14 increased to 8/14 with repetitions and min verbal cue Problem Solving/Reasoning: Category members: [place]; 2/8 increased to 4/8 with min-mod verbal [...] recommended at discharge. Completed by Chaitanya Pratt Hide Measuring Machine Operator Clinician Co-signed by Hina Sawyer M.S. CCC/BOARD OF EDUCATION SECRETARY Physical Therapy Facility/Department: [address] STEP DOWN Daily Treatment Note Name: [...] progress notes indicate needs to mobilize . [place] thick liquids. Documentation of vocal cord paralysis. [...] BLE, Hip abduction- x10 BLE. AM-PAC Score [facility] Inpatient Mobility Raw Score : [...] from the original note were not included. [facility] Internal Medicine Teaching Residency Program Inpatient Daily Progress Note __ Patient: Meg Georges Date of : 1965 Acct: [id number] Room: [address] [place] [address] Admit date: 06/28/2021 Today's date: 07/09/21 Number [...] neuropathy follows neurology. Presented [facility] ED from [facility], found confused outside. Imaging negative. She complains [...] and Plan: Principal Problem: Sepsis ([facility]) Active Problems: Altered mental state Encephalitis Encephalopathy CIDP (chronic inflammatory demyelinating polyneuropathy) ([facility]) Bacteremia Hypothyroidism Hypokalemia Type 2 diabetes mellitus with diabetic polyneuropathy ([facility]) Primary hypertension Upper GI bleed Non-intractable vomiting Unintentional weight loss Acute metabolic encephalopathy MSSA (methicillin susceptible Staphylococcus aureus) septicemia ([facility]) CRP elevated Bandemia Allergy to multiple antibiotics Pyogenic inflammation of bone ([facility]) Acute intractable headache Acute osteomyelitis of cervical spine ([facility]) Abscess in epidural space of cervical [...] antihypertensives. Elevated troponins: Downtrended likely type II IN Hypokalemia: Repeat potassium level and replace if needed Left Vocal cord paralysis: Ongoing x 1 month. ENT on board. Plan for injection laryngoplasty for voice/swallowing improvement at some point. Passed swallow study. Diet: Easy to chew DVT ppx : Lovenox held GI ppx: None PT/OT/SW: Consulted Discharge Planning: In process Clark Iglesias MD Internal Medicine Resident, PGY-1 [facility]; [place], [place] 7:13 AM 07/09/2021 Please note that part of this chart was generated using voice recognition dictation software. Although every effort was made to ensure the accuracy of this automated windows desktop support, some errors in windows desktop support may have occurred. Associated attestation - Johnny [...] 120 (H) 06/28/2021 Culture, Anaerobic and Aerobic [[id number]] Collected: 07/06/212140 Updated: 07/08/21820 Specimen Type: Swab [...] infection Jose Alfredo Patiño DO Neurosurgery O: [phone] C: [phone] Physical Therapy Facility/Department: [address]EP DOWN Physical Therapy Reassessment Name: [...] progress notes indicate needs to mobilize . [place] thick liquids. Documentation of vocal cord paralysis. 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 Feeder Worker Power Unit Operator rubbed some lotion on the area [...] from the original note were not included. [facility] Internal Medicine Teaching Residency Program Inpatient Daily Progress Note __ Patient: Meg Georges Date of : 1965 Acct: [id number] Room: [address] [place] [address] Admit date: 06/28/2021 Today's date: 07/08/21 Number [...] neuropathy follows neurology. Presented to ED from [facility], found confused outside. Imaging negative. She complains [...] CIDP (chronic inflammatory demyelinating polyneuropathy) ([facility]) Bacteremia Hypothyroidism Hypokalemia Type 2 diabetes [...] antihypertensives. Elevated troponins: Downtrended likely type II IN Hypokalemia: Repeat potassium level and replace if needed Left Vocal cord paralysis: Ongoing x 1 month. ENT on board. Plan for injection laryngoplasty for voice/swallowing improvement at some point. Passed swallow study. Diet: Easy to chew DVT ppx : Lovenox held GI ppx: None PT/OT/SW: Consulted Discharge Planning: In process Clark Iglesias MD Internal Medicine Resident, PGY-1 [facility]; [place], [place] 7:24 AM 07/08/2021 Please note that part of this chart was generated using voice recognition dictation software. Although every effort was made to ensure the accuracy of this automated windows desktop support, some errors in windows desktop support may have occurred. Associated attestation - Johnny [...] were not included. [facility] - Infectious diseases evaluation admission date [...] the rise despite tx Infection Control Recommendations [place] Precautions Contact Isolation Antimicrobial Stewardship Recommendations Simplification of therapy Targeted therapy History of Present Illness: Initial history: Meg Georges is a 56 y.o.-year-old female presented to the ED for altered mental status. Patient is currently admitted under neurology service. Patient presented from a [facility] after an episode of confusion overnight where she was found wandering outside her chcf. She had CT head done at outside facility which did not show any acute changes, telestroke was consulted for the concern of confusion, they recommended transfer to [facility] for MRI of the brain. BC SA MSSA and LP neg CRP elevated and WBc up - creat normal 06/29 mentally recovered Neck pain x 1 mo Left sole callus [place] 2 [place] ago [place] the [place] She gets her IvIg through a periph [...] ESOPHAGOGASTRODUODENOSCOPY performed by Hari Wagner MD at [facility] Endoscopy Medications: sodium chloride flush 5-40 mL [...] Friends and Family: Not on file Attends Uatsdin Services: Not on file Active Member of [...] Crowe MD Office: Perfect serve / office [phone] Neurology Nurse Practitioner Progress Note INTERVAL HISTORY: [...] who was admitted as a transfer from [facility] ED on 06/28/2021 for AMS. As per medical records, patient was found wandering outside her [facility]. She was taken to [facility] ED with acute lethargy and confusion. Patient received Narcan with no improvement. Patient was evaluated by Dr. Helton through telestroke; NIH score was 1. CT head-motion degraded but no obvious acute stroke. Patient was transferred to [facility] for further evaluation. She was initially [...] ESOPHAGOGASTRODUODENOSCOPY performed by Hari Wagner MD at [facility] Endoscopy PHYSICAL EXAM: Blood pressure (!) 142/78, [...] TSH 0.15 (L) 06/28/2021 INR 1.2 06/28/2021 [id number] 06/28/2016 LABA1C 9.4 (H) 06/28/2021 LABMICR [...] diabetic peripheral neuropathy; demyelinating neuropathy panel from [facility] was normal. Pt has been on [...] to ensure the accuracy of this automated windows desktop support, some errors in windows desktop support may have occurred. Neurosurgery NATE/Resident Daily Progress [...] 120 (H) 06/28/2021 Culture, Anaerobic and Aerobic [[id number]] Collected: 07/06/212140 Updated: 07/06/212331 Specimen Type: Swab [...] Therapies Jose Alfredo Patiño DO Neurosurgery O: [phone] C: [phone] Images from the original note were not included. [facility] Internal Medicine Teaching Residency Program Inpatient Daily Progress Note __ Patient: Meg Georges Date of : 1965 Acct: [id number] Room: 0146/0146- Admit date: 06/28/2021 Today's date: [...] neuropathy follows neurology. Presented to ED from [facility], found confused outside. Imaging negative. She complains [...] mL, PRN tiZANidine, 2 mg, Q8H PRN fbiwxktviz-xyysrdezczrwa-xkeudxqs, 1 tablet, Q4H PRN hydrALAZINE, 10 mg, [...] antihypertensives. Elevated troponins: Downtrended likely type II IN Hypokalemia: K+ 3.9 today. Repeat potassium level and replace if needed Left Vocal cord paralysis: Ongoing x 1 month. ENT on board. Plan for injection laryngoplasty for voice/swallowing improvement at some point. Passed swallow study. Rufus Argueta MD Internal Medicine Resident, PGY- 1 [facility]; [place], [place] 07/07/2021, 7:16 AM Associated attestation - [...] original note were not included. Occupational Therapy [facility] Occupational Therapy Not Seen Note DATE: 07/06/2021 NAME: Meg Georges : 1965 Patient not seen this date for Occupational Therapy due to: Surgery/Procedure: POSTERIOR CERVICAL C1-2 LAMINECTOMY Next Scheduled Treatment: 07/07 Speech Language Pathology Speech Language Pathology [facility] Cognitive/Dysphagia Treatment Note Date: 07/06/2021 Patient s Name: Meg Georges Diagnosis: Patient Active Problem List Diagnosis Code Cellulitis of left finger L03.012 Altered mental state R41.82 Encephalitis G04.90 Encephalopathy G93.40 CIDP (chronic inflammatory demyelinating polyneuropathy) ([facility]) G61.81 Sepsis ([facility]) A41.9 Bacteremia R78.81 Hypothyroidism E03.9 Hypokalemia E87.6 Type 2 diabetes mellitus with diabetic polyneuropathy ([facility]) E11.42 Primary hypertension I10 Upper GI bleed K92.2 Non-intractable vomiting R11.10 Unintentional weight loss R63.4 Acute metabolic encephalopathy G93.41 MSSA (methicillin susceptible Staphylococcus aureus) septicemia ([facility]) A41.01 Elevated C-reactive protein (CRP) R79.82 Bandemia D72.825 Allergy to multiple antibiotics Z88.1 Pyogenic inflammation of bone ([facility]) M86.9 Acute intractable headache R51.9 Pain: [...] 01/28 with min verbal cues Category members: [place]; 8/10 increased to 10/10 with min verbal cues Wrong category: [place]; 5/10 increased to 10/10 with repetitions and [...] recommended at discharge. Completed by Chaitanya Pratt Hide Measuring Machine Operator Clinician Co-signed by Robbie Mckeon M.A.CCC/BOARD OF EDUCATION SECRETARY Images from the original note were not included. [facility] - Infectious diseases evaluation admission date [...] the rise despite tx Infection Control Recommendations [place] Precautions Contact Isolation Antimicrobial Stewardship Recommendations Simplification of therapy Targeted therapy History of Present Illness: Initial history: Meg Georges is a 56 y.o.-year-old female presented to the ED for altered mental status. Patient is currently admitted under neurology service. Patient presented from a ch[facility] after an episode of confusion overnight where she was found wandering outside her chcf. She had CT head done at outside facility which did not show any acute changes, telestroke was consulted for the concern of confusion, they recommended transfer to [facility] for MRI of the brain. BC SA MSSA and LP neg CRP elevated and WBc up - creat normal 06/29 mentally recovered Neck pain x 1 mo Left sole callus [place] ago [place] She gets her IvIg through a periph [...] ESOPHAGOGASTRODUODENOSCOPY performed by Hari Wagner MD at [facility] Endoscopy Medications: sodium chloride flush 5-40 mL [...] Friends and Family: Not on file Attends Uatsdin Services: Not on file Active Member of [...] Crowe MD Office: Perfect serve / office [phone] [facility] Neurology IN-PATIENT SERVICE [facility] Progress Note Date: 07/06/2021 Patient name: Meg Georges Date of admission: 06/28/2021 11:59 AM Account: [id number] Date of : 1965 PCP: Neri Santa [...] She was found wandering outside of her chcf. She was admitted to the medicine team and was found to have sepsis as well as a GI bleed. Neurology was consulted due to altered mentation and headache. CT head was done and was unremarkable. CTA head neck unremarkable. EEG was normal. Spinal tap was done in the ED with CSF studies negative for meningitis or RABBLE FURNACE TENDER infection. For her headache she was placed [...] ESOPHAGOGASTRODUODENOSCOPY performed by Hari Wagner MD at [facility] Endoscopy Medications Prior to Admission: Prior to [...] Medium Pyogenic inflammation of bone ([facility]) [M86.9] Priority: Medium Acute intractable headache [...] On nafcillin -CSF studies are negative for RABBLE FURNACE TENDER infection. -Continue Depakene 250mg BID for headache. [...] from the original note were not included. [facility] Internal Medicine Teaching Residency Program Inpatient Daily Progress Note __ Patient: Meg Georges Date of : 1965 Acct: [id number] Room: 0146/0146-01 Admit date: 06/28/2021 Today's date: [...] neuropathy follows neurology. Presented to ED from [facility], found confused outside. Imaging negative. She complains [...] mL, PRN tiZANidine, 2 mg, Q8H PRN arymkmhohx-jwlteasadethq-ujyhtgej, 1 tablet, Q4H PRN hydrALAZINE, 10 mg, [...] antihypertensives. Elevated troponins: Downtrended likely type II IN Hypokalemia: K+ 3.2 today. Likely due to diarrhea. Repeat potassium level and replace if needed Left Vocal cord paralysis: Ongoing x 1 month. ENT on board. Plan for injection laryngoplasty for voice/swallowing improvement at some point. Passed swallow study. Rufus Argueta MD Internal Medicine Resident, PGY- 1 [facility]; [place], [place] 07/06/2021, 7:41 AM Associated attestation - [...] Chew diet with mildly thick liquids per BOARD OF EDUCATION SECRETARY 2. Send Magic Cup ONS with meals Nutrition Assessment: Pt made NPO for MBSS d/t concern for aspiration. BOARD OF EDUCATION SECRETARY recommending easy to chew and mildly thick [...] ADULT DIET; Easy to Chew; Mildly Thick ([place]) Anthropometric Measures: Height: 5' 5 (165.1 cm) [place] Body Weight (IBW): 125 lbs (57 kg) Current Body Weight: 145 lb (65.8 kg), 116 % IBW. Weight Source: Stated Current BMI (kg/m2): 24.1 BMI Categories: Normal Weight (BMI 18.5-24.9) Estimated Daily Nutrient Needs: Energy Requirements Based On: Kcal/kg Weight Used for Energy Requirements: Current Energy (kcal/day): 0780-5844 kcals/day Weight Used for Protein Requirements: Current [...] determine Mary Acosta MS, RD, LD Contact: [phone] Images from the original note were not included. [facility] - Infectious diseases evaluation admission date [...] the rise despite tx Infection Control Recommendations [place] Precautions Contact Isolation Antimicrobial Stewardship Recommendations Simplification of therapy Targeted therapy History of Present Illness: Initial history: Meg Georges is a 56 y.o.-year-old female presented to the ED for altered mental status. Patient is currently admitted under neurology service. Patient presented from a chcf after an episode of confusion overnight where she was found wandering outside her chcf. She had CT head done at outside facility which did not show any acute changes, telestroke was consulted for the concern of confusion, they recommended transfer to [facility] for MRI of the brain. BC SA MSSA and LP neg CRP elevated and WBc up - creat normal 06/29 mentally recovered Neck pain x 1 mo Left sole callus was [place] the [place] She gets her IvIg through a periph [...] ESOPHAGOGASTRODUODENOSCOPY performed by Hari Wagner MD at [facility] Endoscopy Medications: gabapentin 200 mg Oral TID [...] Friends and Family: Not on file Attends Uatsdin Services: Not on file Active Member of [...] Negrete MD Office: Perfect serve / office [phone] I have discussed the care of the [...] from the original note were not included. [facility] Internal Medicine Teaching Residency Program Inpatient Daily Progress Note __ Patient: Meg Georges Date of : 1965 Acct: [id number] Room: [facility]/0146- Admit date: 06/28/2021 Today's date: 07/05/21 Number [...] neuropathy follows neurology. Presented to ED from [facility], found confused outside. Imaging negative. She complains [...] mL, PRN tiZANidine, 2 mg, Q8H PRN gdmtwextef-igrwozbtgvaab-sswzzvux, 1 tablet, Q4H PRN hydrALAZINE, 10 mg, [...] controlled Elevated troponins: Downtrended likely type II IN -echo done Hypokalemia: K+ 3.1 today. On daily 40 replacement. Repeat potassium level and replace if needed Left Vocal cord paralysis: Ongoing x 1 month. ENT on board. Plan for injection laryngoplasty for voice/swallowing improvement at some point. Passed swallow study. Tami Vega MD Internal Medicine Resident, PGY- 2 [facility]; [place], [place] 07/05/2021, 10:37 AM Associated attestation - [...] She was found wandering outside of her chcf. She was admitted to the medicine team and was found to have sepsis as well as a GI bleed. Neurology was consulted due to altered mentation and headache. CT head was done and was unremarkable. CTA head neck unremarkable. EEG was normal. Spinal tap was done in the ED with CSF studies negative for meningitis or RABBLE FURNACE TENDER infection. For her headache she was placed [...] ESOPHAGOGASTRODUODENOSCOPY performed by Hari Wagner MD at [facility] Endoscopy Social History: Meg Georges reports that [...] LABA1C 9.4 (H) 06/28/2021 LABMICR 7 06/25/2013 [id number] 06/28/2016 Diagnostic data reviewed: CT HEAD [...] of CIDP -CSF studies are negative for RABBLE FURNACE TENDER infection -Continue Depakene 250mg BID for headache [...] to ensure the accuracy of this automated windows desktop support, some errors in windows desktop support may have occurred. 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, [employer] Leisure & Hobbies: shopping Additional Comments: Support from gnosticism friends, but unsure if she would have [...] Hand Dominance Hand Dominance: Right AM-PAC Score [facility] Inpatient Daily Activity Raw Score: 19 (07/04/21 1630) [facility] Inpatient ADL T-Scale Score : [...] 33 Minutes PAIGE Moreira Physical Therapy Facility/Department: [address]EP [address] Physical Therapy Initial Assessment [...] (pt retired in restroom with OT upon customs entry writer's exit) Restraints Restraints Initially in [...] Ambulation Assistance: Independent Transfer Assistance: Independent Active Production Control Scheduler: Yes Mode of Transportation: Car 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, [employer] Leisure & Hobbies: shopping Additional Comments: Support from gnosticism friends, but unsure if she would have [...] Not formally assessed due to c-spine precautions; senior business intelligence analyst strength WFL Strength LUE Strength LUE: Exception Comment: Not formally assessed due to c-spine precautions; senior business intelligence analyst strength WFL Bed mobility Supine to Sit: Contact guard assistance Sit to Supine: (Did not formally assess- pt retired in restroom upon customs entry writer's exit) Bed Mobility Comments: Increased [...] requiring Alejandra donning/ doffing from assistance from customs entry writer. More Ambulation?: No Stairs/Curb Stairs?: [...] PT Speech Language Pathology Speech Language Pathology [facility] Cognitive Treatment Note Date: 07/04/2021 Patient s Name: Meg Georges Diagnosis: Patient Active Problem List Diagnosis Code Cellulitis of left finger L03.012 Altered mental state R41.82 Encephalitis G04.90 Encephalopathy G93.40 CIDP (chronic inflammatory demyelinating polyneuropathy) ([facility]) G61.81 Sepsis ([facility]) A41.9 Bacteremia R78.81 Hypothyroidism E03.9 Hypokalemia E87.6 Type 2 diabetes mellitus with diabetic polyneuropathy ([facility]) E11.42 Primary hypertension I10 Upper GI bleed K92.2 Non-intractable vomiting R11.10 Unintentional weight loss R63.4 Acute metabolic encephalopathy G93.41 MSSA (methicillin susceptible Staphylococcus aureus) septicemia ([facility]) A41.01 Elevated C-reactive protein (CRP) R79.82 Bandemia D72.825 Allergy to multiple antibiotics Z88.1 Pyogenic inflammation of bone ([facility]) M86.9 Acute intractable headache R51.9 Pain: [...] recommended at discharge. Treatment completed by:Chaitanya Pratt Hide Measuring Machine Operator ROBBIE MCKEON BOARD OF EDUCATION SECRETARY, M.A. [facility]-BOARD OF EDUCATION SECRETARY Patient's operative note found from care everywhere from Dr.Gloria Elena Washnigton MD 02/22/2010 from [facility]. Implant is Baerveldt 250 tube shunt, on the left for open angle glaucoma. This is MRI compatible. MRI department will confirm this. Speech Language Pathology [facility] Speech Language Pathology Date: 07/04/2021 Patient Name: Meg Georges Date of : 1965 AGE: 56 y.o. Patient Not Available for Speech Therapy Due to: [] Testing [] Hemodialysis [] Cancelled by RN [] Surgery [] Intubation/Sedation/Pain Medication [] Medical instability [x] Other: Pt in pain. Asked ST to return later Next scheduled treatment: 518 in PM if able, 07/05 Completed by:Chaitanya Pratt Hide Measuring Machine Operator ROBBIE MCKEON, BOARD OF EDUCATION SECRETARY, M.A. [facility]-BOARD OF EDUCATION SECRETARY ENT/OTOLARYNGOLOGY PROGRESS NOTE REASON FOR CARE: AMS, L vocal cord paralysis HISTORY OF PRESENT ILLNESS: eMg Georges is a 56 y.o. who is [...] Dr. Chilo Mccoy and Dr. Angel Krueger [address] [facility] [address] OPTION 2: [facility] [address] [place] [address] Appointment scheduling: Other Useful Numbers: [facility]' ENT Nurse triage line [phone] (ENT-related questions or concerns, 8am-4pm, Friday through Friday) Gutierrez Sloan MD Pediatric Otolaryngology-Head and Neck Surgery [facility] Otolaryngology group Office ph# [phone] Also available in Koko Images from the original note were not included. [facility] - Infectious diseases evaluation admission date [...] patient, RN, Dr. Robledo. Infection Control Recommendations [place] Precautions Contact Isolation Antimicrobial Stewardship Recommendations Simplification of therapy Targeted therapy History of Present Illness: Initial history: Meg Georges is a 56 y.o.-year-old female presented to the ED for altered mental status. Patient is currently admitted under neurology service. Patient presented from a chcf after an episode of confusion overnight where she was found wandering outside her chcf. She had CT head done at outside facility which did not show any acute changes, telestroke was consulted for the concern of confusion, they recommended transfer to [facility] for MRI of the brain. BC SA MSSA and LP neg CRP elevated and WBc up - creat normal 06/29 mentally recovered Neck pain x 1 mo Left sole callus [place] the [place] She gets her IvIg through a periph [...] ESOPHAGOGASTRODUODENOSCOPY performed by Hari Wagner MD at [facility] Endoscopy Medications: lidocaine 1 patch TransDERmal Daily [...] Friends and Family: Not on file Attends Uatsdin Services: Not on file Active Member of [...] Orellana CNP Office: Perfect serve / office [phone] \ Images from the original note were [...] She was found wandering outside of her [facility]. She was admitted to the medicine team and was found to have sepsis as well as a GI bleed. Neurology was consulted due to altered mentation and headache. CT head was done and was unremarkable. CTA head neck unremarkable. EEG was normal. Spinal tap was done in the ED with CSF studies negative for meningitis or RABBLE FURNACE TENDER infection. For her headache she was placed [...] ESOPHAGOGASTRODUODENOSCOPY performed by Hari Wagner MD at [facility] Endoscopy Social History: Meg Georges reports that [...] LABA1C 9.4 (H) 06/28/2021 LABMICR 7 06/25/2013 [id number] 06/28/2016 Diagnostic data reviewed: CT HEAD [...] IVIG sooner -CSF studies are negative for RABBLE FURNACE TENDER infection -Continue Depakene 250mg BID for headache -GI is following, patient is s/p EGD with findings suggestive of Alan esophagitis -ID is following; patient remains on antibiotics -Neurosurgery is following; possible myelogram -PT/OT -We will follow Please note that this note was generated using a voice recognition dictation software. Although every effort was made to ensure the accuracy of this automated windows desktop support, some errors in windows desktop support may have occurred. Images from the original note were not included. [facility] Internal Medicine Teaching Residency Program Inpatient Daily Progress Note __ Patient: Meg Georges Date of : 1965 Acct: [id number] Room: [address] [place] [address] Admit date: 06/28/2021 Today's date: 07/04/21 Number [...] neuropathy follows neurology. Presented to ED from [facility], found confused outside. Imaging negative. She complains [...] mL, PRN tiZANidine, 2 mg, Q8H PRN nbhqoxyryf-ahwbfzoofnnrr-crjufztu, 1 tablet, Q4H PRN hydrALAZINE, 10 mg, [...] controlled Elevated troponins: Downtrending likely type II IN -echo result pending Hypokalemia: K+ 2.9 today. [...] Internal Medicine Resident, PGY- 1 [facility]; [place], [place] 07/04/2021, 7:05 AM Associated attestation - [...] check back 07/04/21. Speech Language Pathology Facility/Department: [facility] 1C STEP DOWN Initial Speech/Language/Cognitive Assessment NAME: [...] (methicillin susceptible Staphylococcus aureus) septicemia ([facility]) on their problem list. Date of [...] hyperlipidemia, sleep apnea, who was transferred from [facility], after she presented from her [facility] for an episode of confusion overnight where she was found wandering outside her chcf. She does not recall the episode very well, complaining of head pain, generalized weakness, weak voice. She had CT head done at outside facility which did not show any acute changes, telestroke was consulted for the concern for confusion, they recommended transfer to [place] for MRI of the brain. Patient has a complicated history over the last few years, has been seen by neurology at [facility] for worsening neuropathy symptoms, eventually diagnosed with CIDP and she is on IVIG infusions every 2 weeks although she has not had them in the last month or so since being in the chcf. 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 Recommendations: Requires BOARD OF EDUCATION SECRETARY Intervention: Yes D/C Recommendations: Ongoing speech therapy [...] were not included. [facility] - Infectious diseases evaluation admission date [...] the rise clayton[pite tx Infection Control Recommendations [place] Precautions Contact Isolation Antimicrobial Stewardship Recommendations Simplification of therapy Targeted therapy History of Present Illness: Initial history: Meg Georges is a 56 y.o.-year-old female presented to the ED for altered mental status. Patient is currently admitted under neurology service. Patient presented from a ch[facility] after an episode of confusion overnight where she was found wandering outside her chcf. She had CT head done at outside facility which did not show any acute changes, telestroke was consulted for the concern of confusion, they recommended transfer to [facility] for MRI of the brain. BC SA MSSA and LP neg CRP elevated and WBc up - creat normal 06/29 mentally recovered Neck pain x 1 mo Left sole callus [place] She gets her IvIg through a periph [...] Friends and Family: Not on file Attends Uatsdin Services: Not on file Active Member of [...] Crowe MD Office: Perfect serve / office [phone] \ Echo completed in echo lab. Images [...] She was found wandering outside of her chcf. She was admitted to the medicine team and was found to have sepsis as well as a GI bleed. Neurology was consulted due to altered mentation and headache. CT head was done and was unremarkable. CTA head neck unremarkable. EEG was normal. Spinal tap was done in the ED with CSF studies negative for meningitis or RABBLE FURNACE TENDER infection. For her headache she was placed [...] LABA1C 9.4 (H) 06/28/2021 LABMICR 7 06/25/2013 [id number] 06/28/2016 Diagnostic data reviewed: CT HEAD [...] CIDP Plan: -CSF studies are negative for RABBLE FURNACE TENDER infection -Patient headache is improved with Depacon; [...] to ensure the accuracy of this automated windows desktop support, some errors in windows desktop support may have occurred. Images from the original note were not included. [facility] Internal Medicine Teaching Residency Program Inpatient Daily Progress Note __ Patient: Meg Georges Date of : 1965 Acct: [id number] Room: 0146/0146-01 Admit date: 06/28/2021 Today's date: [...] neuropathy follows neurology. Presented to ED from [facility], found confused outside. Imaging negative. She complains [...] Daily PRN tiZANidine, 2 mg, Q8H PRN vkzgohbpgg-pctcqzeytgbuo-ntzsqdpo, 1 tablet, Q4H PRN hydrALAZINE, 10 mg, [...] controlled Elevated troponins: Downtrending likely type II IN -echo result pending Hypokalemia: K+ 2.9 today. [...] Internal Medicine Resident, PGY- 1 [facility]; [place], [place] 07/03/2021, 5:58 AM Associated attestation - [...] were not included. [facility] - Infectious diseases evaluation admission date [...] scan to the neck Infection Control Recommendations [place] Precautions Contact Isolation Antimicrobial Stewardship Recommendations Simplification of therapy Targeted therapy History of Present Illness: Initial history: Meg Georges is a 56 y.o.-year-old female presented to the ED for altered mental status. Patient is currently admitted under neurology service. Patient presented from a ch[facility] after an episode of confusion overnight where she was found wandering outside her chcf. She had CT head done at outside facility which did not show any acute changes, telestroke was consulted for the concern of confusion, they recommended transfer to [facility] for MRI of the brain. BC SA MSSA and LP neg CRP elevated and WBc up - creat normal 06/29 mentally recovered Neck pain x 1 mo Left sole callus was [place] ago [place] the [place] She gets her IvIg through a periph [...] Friends and Family: Not on file Attends Uatsdin Services: Not on file Active Member of [...] Crowe MD Office: Perfect serve / office [phone] \ Speech Language Pathology [facility] Speech Language Pathology Date: 07/02/2021 Patient [...] as appropriate Completed by: HOLGER Larson, M.S. [facility]-BOARD OF EDUCATION SECRETARY NEUROLOGY INPATIENT PROGRESS NOTE 07/02/2021 Subjective: Meg Georges is a 56 y.o. female admitted on 06/28/2021 with Stupor [R40.1] Encephalitis [G04.90] Altered mental state [R41.82] Briefly, this is a 56 y.o. 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 She was found wandering outside her chcf. Admitted to medicine for sepsis work up, [...] 0-6 Units SubCUTAneous Nightly PRN Meds include: njjmnczdvz-jztryywpkxuxi-qnvxnssf, hydrALAZINE, sodium chloride flush, sodium chloride, ondansetron [...] LABA1C 9.4 (H) 06/28/2021 LABMICR 7 06/25/2013 [id number] 06/28/2016 No results found for: PHENYTOIN, [...] confusion. She was found wandering outside her chcf. MSSA sepsis - on Abx per primary. [...] for EGD today. CSF studies negative for RABBLE FURNACE TENDER infection. Will continue to follow. Pawan Dutton DO 07/02/2021 3:45 PM Images from the original note were not included. [facility] Internal Medicine Teaching Residency Program Inpatient Daily Progress Note __ Patient: Meg Georges Date of : 1965 Acct: [id number] Room: [facility]6/0146-01 Admit date: 06/28/2021 Today's date: 07/02/21 Number [...] neuropathy follows neurology. Presented to ED from [facility], found confused outside. Imaging negative. She complains [...] at 07/01/21 0600 sodium chloride dextrose PRN Wbvehwwvcppxuleohdfov-iqtydrubacdiq-sr ffeine, 1 tablet, Q4H PRN hydrALAZINE, 10 [...] N&V Elevated troponins: Downtrending likely type II IN -echo result pending Hypokalemia: K+ 2.2 today. Replace PO and IV and monitor Left Vocal cord paralysis: Ongoing x 1 month. ENT on board. Plan for injection laryngoplasty for voice/swallowing improvement at some point. Needs formal speech therapy/swallow study assessment as she is likely aspirating liquids Rufus Argueta MD Internal Medicine Resident, PGY- 1 [facility]; [place], [place] 07/02/2021, 7:16 AM Associated attestation - [...] history and exam findings with the resident/ LAMINATING MACHINE OPERATOR. I have seen and examined the patient and the coffey elements of the encounter have been performed by me. I agree with the assessment, plan and orders as documented by the resident or LAMINATING MACHINE OPERATOR with changes made to the note. Briefly, this is a 56 y.o. female with known dx of CIDP (on 2wkly IVIG), IDDM, HLD, sleep apnea was admitted on 06/28/2021 with episodic confusion; found wandering outside her chcf. Her history is significant for CIDP for [...] 0-6 Units SubCUTAneous Nightly PRN Meds include: iepaopxgsj-zkvpbxyznpoph-uzxbzewq, hydrALAZINE, sodium chloride flush, sodium chloride, ondansetron [...] LABA1C 9.4 (H) 06/28/2021 LABMICR 7 06/25/2013 [id number] 06/28/2016 Impression and Plan: Ms. Meg [...] you. Jenifer Jewell MD 07/01/2021 2:01 PM [facility] Neurology IN-PATIENT SERVICE [facility] Progress note Date: 07/01/2021 Patient name: Meg Georges Date of admission: 06/28/2021 11:59 AM Account: [id number] Date of : 1965 PCP: Neri Santa Sr, DO Room: [address] [place] [address] Code Status: Full Code Chief Complaint: Chief [...] panel 06/28/21 Total cholesterol 155, LDL 63 KVK5H-0.4 this admission CSF studies 06/28/21 Oligoclonal banding [...] # 2.14 1.0 - 4.8 k/uL Absolute [place] # 0.76 0.1 - 0.8 k/uL Absolute [...] Assessment : Primary Problem Sepsis ([facility]) Active Hospital Problems Diagnosis Date Noted Acute metabolic encephalopathy [G93.41] 06/30/2021 Priority: Medium MSSA (methicillin susceptible Staphylococcus aureus) septicemia ([facility]) [A41.01] 06/30/2021 Priority: Medium Upper GI bleed [K92.2] Priority: Medium Non-intractable vomiting [R11.10] Priority: Medium Unintentional weight loss [R63.4] Priority: Medium Sepsis ([facility]) [A41.9] 06/29/2021 Priority: Medium Bacteremia [R78.81] 06/29/2021 Priority: Medium Hypothyroidism [E03.9] 06/29/2021 Priority: Medium Hypokalemia [E87.6] 06/29/2021 Priority: Medium Type 2 diabetes mellitus with diabetic polyneuropathy ([facility]) [E11.42] 06/29/2021 Priority: Medium Primary hypertension [I10] 06/29/2021 Priority: Medium Encephalopathy [G93.40] Priority: Medium CIDP (chronic inflammatory demyelinating polyneuropathy) ([facility]) [G61.81] Priority: Medium Altered mental state [...] history and exam findings with the resident/ LAMINATING MACHINE OPERATOR. I have seen and examined the patient and the cofefy elements of the encounter have been performed by me. I agree with the assessment, plan and orders as documented by the resident or LAMINATING MACHINE OPERATOR with changes made to the note. Briefly, this is a 56 y.o. female with known dx of CIDP (on 2wkly IVIG), IDDM, HLD, sleep apnea was admitted on 06/28/2021 with episodic confusion; found wandering outside her chcf. Her history is significant for CIDP for [...] SubCUTAneous Nightly PRN Meds include: PRN Medications lcebzhqvwq-zjetliczvecbg-vijnemkw, hydrALAZINE, sodium chloride flush, sodium chloride, ondansetron [...] LABA1C 9.4 (H) 06/28/2021 LABMICR 7 06/25/2013 [id number] 06/28/2016 Impression and Plan: Ms. Meg [...] from the original note were not included. [facility] Internal Medicine Teaching Residency Program Inpatient Daily Progress Note __ Patient: Meg Georges Date of : 1965 Acct: [id number] Room: [address] [place] [address] Admit date: 06/28/2021 Today's date: 07/01/21 Number [...] neuropathy follows neurology. Presented to ED from chcf, found confused outside. Imaging negative. She complains [...] at 07/01/21 0600 sodium chloride dextrose PRN Dqghccaoptybilsxkqruj-hpwvxixbhuyfs-xw ffeine, 1 tablet, Q4H PRN hydrALAZINE, 10 [...] N&V Elevated troponins: Downtrending likely type II IN -echo result pending Hypokalemia: K+ 2.2 today. Replace PO and IV and monitor Rufus Argueta MD Internal Medicine Resident, PGY- 1 [facility]; [place], [place] 07/01/2021, 7:33 AM Associated attestation - [...] were not included. [facility] - Infectious diseases evaluation Progress Note [...] object in her eyes Infection Control Recommendations [place] Precautions Antimicrobial Stewardship Recommendations Simplification of therapy Targeted therapy History of Present Illness: INITIAL HISTORY: Meg Georges is a 56 y.o.-year-old female who presented to the ED because of altered mental status. Patient is currently admitted under neurology service. Patient presented from a chcf after an episode of confusion overnight where she was found wandering outside her chcf. She had CT head done at outside facility which did not show any acute changes. Telestroke was consulted because of the concern with confusion, they recommended transfer to [facility] for MRI of the brain. BC: Staph A (MSSA) and LP neg CRP elevated and WBc up - creat normal 06/29 mentally recovered Neck pain x 1 mo Left sole callus was infected [place] 2 [place] ago at the [place] She gets her IvIg through a peripheral [...] Friends and Family: Not on file Attends Uatsdin Services: Not on file Active Member of [...] Stokes MD Office: Perfect serve / office [phone] [facility] Progress Note Meg Georges [...] Stopped (07/01/21 0427) sodium chloride dextrose PRN Meds:nfidxpzmyn-vrzgszqdqkyzg-mmzzowrk , hydrALAZINE, sodium chloride flush, sodium chloride, [...] results for input(s): LABIRON, TIBC, IRON, FERRITIN, RADMQMUH44, FOLATE, OCCULTBLD in the last 72 hours. [...] neck. ENDOSCOPY Principal Problem: Sepsis ([facility]) Active Problems: Altered mental state Encephalitis Encephalopathy CIDP (chronic inflammatory demyelinating polyneuropathy) ([facility]) Bacteremia Hypothyroidism Hypokalemia Type 2 diabetes mellitus with diabetic polyneuropathy ([facility]) Primary hypertension Upper GI bleed Non-intractable vomiting Unintentional weight loss Acute metabolic encephalopathy MSSA (methicillin susceptible Staphylococcus aureus) septicemia ([facility]) Resolved Problems: * No resolved hospital problems. 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 She was [...] of your patient. Rosalinda Alvarado APRN - LAMINATING MACHINE OPERATOR on 07/01/2021 at 6:50 AM [facility] Please note that this note was generated using a voice recognition dictation software. Although every effort was made to ensure the accuracy of this automated windows desktop support, some errors in windows desktop support may have occurred. Associated attestation - Hari Wagner MD - 07/01/2021 11:00 AM EDT Attending Physician Statement I have seen, examined and discussed the care of Meg Georges, including pertinent history and exam findings, with the LAMINATING MACHINE OPERATOR. I agree with the assessment, plan and orders as documented by the LAMINATING MACHINE OPERATOR. SPIRITUAL CARE DEPARTMENT - [facility] PROGRESS NOTE Shift date: 06/30/21 Shift day: Friday Shift # 2 Room # 0146/0146-01 Name: Meg Georges Age: 56 y.o. Gender: female Temple: [employer] [employer]: Referral: Routine Visit Admit Date & Time: 06/28/2021 11:59 AM PATIENT/EVENT DESCRIPTION: Meg Georges is a 56 y.o. female SPIRITUAL ASSESSMENT/INTERVENTION: Patient appeared to welcome recruiter presence. Patient engaged in conversation and stated she had lost her voice. Hide Cleaner was a ministry of presence and offered prayer for spiritual comfort/support. Patient accepted prayer and expressed gratitude for visit. SPIRITUAL CARE FOLLOW-UP PLAN: Chaplains will remain available to offer spiritual and emotional support as needed. . Spiritual Care Department [facility] [phone] Images from the original note were not included. [facility] Internal Medicine Teaching Residency Program Inpatient Daily Progress Note __ Patient: Meg Georges Date of : 1965 Acct: [id number] Room: 0146/0146-01 Admit date: 06/28/2021 Today's date: [...] neuropathy follows neurology. Presented to ED from ch[facility], found confused outside. Imaging negative. She complains [...] Stopped (06/30/21 0408) sodium chloride dextrose PRN Kvcadjckrvhcjtqmlbwdf-rikuikvbowlrq-zd ffeine, 1 tablet, Q4H PRN hydrALAZINE, 10 [...] N&V Elevated troponins: Downtrending likely type II IN -echo result pending Hypokalemia: Labs pending Jonathan Steve MD Internal Medicine Resident, PGY- 2 [facility]; [place], [place] 06/30/2021, 12:56 PM Associated attestation - [...] with episodic confusion; found wandering outside her chcf. Her history is significant for CIDP for [...] 0-6 Units SubCUTAneous Nightly PRN Meds include: qcpasrhfhc-sfqofpqslzuyg-ibfhicjp, hydrALAZINE, sodium chloride flush, sodium chloride, ondansetron [...] LABA1C 9.4 (H) 06/28/2021 LABMICR 7 06/25/2013 [id number] 06/28/2016 Impression and Plan: Ms. Meg [...] 06/30/2021 11:45 AM Speech Language Pathology Facility/Department: [facility] 1C STEP DOWN Initial Speech/Language/Cognitive Assessment NAME: Meg Georges : 1965 ADMISSION DATE: 06/28/2021 ADMITTING DIAGNOSIS: has Cellulitis of left finger; Altered mental state; Encephalitis; Encephalopathy; CIDP (chronic inflammatory demyelinating polyneuropathy) (HCC); Sepsis (HCC); Bacteremia; Hypothyroidism; Hypokalemia; Type 2 diabetes mellitus with diabetic polyneuropathy (HCC); and Primary hypertension on their problem list. DATE ONSET: 06/28/2021 Date of Eval: 06/30/2021 Evaluating Therapist: Leeann Elder, BOARD OF EDUCATION SECRETARY RECENT RESULTS CT OF HEAD/MRI: CT Head [...] chronic IVIG every 2 weeks, transferred from [facility] for further neurological evaluation. She was [...] any ENT evaluation Diagnosis: Dysphonia Recommendations: Requires BOARD OF EDUCATION SECRETARY Intervention: Yes D/C Recommendations: To be determined [...] were not included. [facility] - Infectious diseases evaluation Progress Note [...] object in her eyes Infection Control Recommendations [place] Precautions Antimicrobial Stewardship Recommendations Simplification of therapy Targeted therapy History of Present Illness: INITIAL HISTORY: Meg Georges is a 56 y.o.-year-old female who presented to the ED because of altered mental status. Patient is currently admitted under neurology service. Patient presented from a chcf after an episode of confusion overnight where she was found wandering outside her chcf. She had CT head done at outside facility which did not show any acute changes. Telestroke was consulted because of the concern with confusion, they recommended transfer to [facility] for MRI of the brain. BC: Staph A (MSSA) and LP neg CRP elevated and WBc up - creat normal 06/29 mentally recovered Neck pain x 1 mo Left sole callus was [place] the [place] She gets her IvIg through a peripheral [...] Friends and Family: Not on file Attends Uatsdin Services: Not on file Active Member of [...] Stokes MD Office: Perfect serve / office [phone] Dr Crowe phoned customs entry writer with new order d/c MRI d/t unknown foreign object in patients eyes. New order for bone scan for cervical spine,look for osteomyelitis. EEG completed Speech Language Pathology [facility] Speech Language Pathology Date: 06/29/2021 Patient [...] by: Chaitanya Pratt Graduate Clinician ROBBIE MCKEON, BOARD OF EDUCATION SECRETARY, M.A. [facility]-BOARD OF EDUCATION SECRETARY [facility] Pharmacokinetic Monitoring Service [...] for the consult, David Donnelly PharmCarrolD., E[place] 06/29/2021 9:15 AM Neurology Resident Progress [...] Gastrointestinal: No nausea, vomiting, diarrhea. Genitourinary: No [employer] [facility] Work Phone: 07-10-2021 Hospital Discharge instructions Sebas Arnold RN - 07/10/2021 7:52 AM EDT Continuity of Care Form Patient Name: Meg Georges : 1965 Admit date: 06/28/2021 Discharge date: 07/10/2021 Code Status Order: Full Code Advance Directives: Admitting Physician: Silver Carmona MD PCP: Neri Santa Sr, DO Discharging Nurse: Thierry Discharging Hospital Unit/Room#: 0146/0146-01 Discharging Unit Phone Number: [phone] Emergency Contact: Extended Emergency Contact Information Primary Emergency Contact: Hina Thomas [facility] Mobile Relation: Brother/Sister Past Surgical History: Past Surgical History: Procedure Laterality Date ACHILLES TENDON SURGERY left BACK SURGERY L 4 and 5 1995, 1996 CERVICAL FUSION N/A 07/06/2021 POSTERIOR CERVICAL C1 LAMINECTOMY. LEFT C2 RHIZOTOMY, EXPLORATION OF EPIDURAL PHLEGMON performed by Alisia Cevallos DO at [facility] OR CHOLECYSTECTOMY EYE SURGERY [address] shunt for open angle glaucoma. MRI compatible- device is all silicone LAMINECTOMY 07/06/2021 Posterior C1, LEFT C2 RHIZOTOMY, EXPLORATION OF EPIDURAL PHLEGMON SHOULDER SURGERY right UPPER GASTROINTESTINAL ENDOSCOPY N/A 07/02/2021 EGD ESOPHAGOGASTRODUODENOSCOPY performed by Hari Wagner MD at [facility] Endoscopy Immunization History: There is no immunization history on file for this patient. Active Problems: Patient Active Problem List Diagnosis Code Cellulitis of left finger L03.012 Altered mental state R41.82 Encephalitis G04.90 Encephalopathy G93.40 CIDP (chronic inflammatory demyelinating polyneuropathy) ([facility]) G61.81 Sepsis ([facility]) A41.9 Bacteremia R78.81 Hypothyroidism E03.9 Hypokalemia E87.6 Type 2 diabetes mellitus with diabetic polyneuropathy ([facility]) E11.42 Primary hypertension I10 Upper GI bleed K92.2 Non-intractable vomiting R11.10 Unintentional weight loss R63.4 Acute metabolic encephalopathy G93.41 MSSA (methicillin susceptible Staphylococcus aureus) septicemia ([facility]) A41.01 CRP elevated R79.82 Bandemia D72.825 Allergy to multiple antibiotics Z88.1 Pyogenic inflammation of bone ([facility]) M86.9 Acute intractable headache R51.9 Acute osteomyelitis of cervical spine ([facility]) M46.22 Abscess in epidural space of [...] - PICC - site {Anatomy; iv placement site:30063}, insertion date: 07/10/2021 Nursing Mobility/ADLs: Walking Assisted Transfer Assisted Bathing Assisted Dressing Assisted Toileting Assisted Feeding Assisted Radiophone Operator Assisted Med Delivery crushed Wound Care Documentation [...] mechanically altered Routes of Feeding: Oral Liquids: [place] Thick Liquids Daily Fluid Restriction: no Last [...] DME order): wheelchair and walker Other Treatments: Correction Assessment Patient's personal belongings (please select all that are sent with patient): Trey RN SIGNATURE: CASE MANAGEMENT/SOCIAL WORK SECTION Inpatient Status Date: Readmission Risk Assessment Score: Readmission Risk Risk of Unplanned Readmission: 23 Discharging to Facility/ Agency [facility] Services Available Correction Address [address] [place] [address] Contact Information [phone] Dialysis Facility (if applicable) Name: Address: Dialysis Schedule: Phone: Fax: Rabies Inspector/Window Tinter signature: PHYSICIAN SECTION Prognosis: Good Condition at [...] the diagnosis listed and that she requires Correction Facility for less 30 days. Update Admission [...] urinary retention documented in this encounter [employer] Phone: 06-28-2021 History of Present illness Narrative Updated sister, Hina. States will be in. This nurse called and spoke with Rachel (nurse) at [place] to get an updated med list. Rachel [...] she was vomiting. documented in this encounter [facility] Phone: 05-11-2021 History of Present illness Narrative The patient tolerated the infusion well without any complications. documented in this encounter [facility] 05-01-2021 Instructions Tia Baugh PA-C - 05/01/2021 [...] sent through Care Everywhere.Staph Infection: General Info (Maltese)Moise (Maltese)documented in this encounter [facility] 05-01-2021 History of Present illness Narrative PATIENT NAME: Meg [facility] URGENT CARE: [address] [facility] [id number] DATE OF VISIT: 05/01/2021 DATE OF : [...] without toes, left 01/26/2019 Asthma Atherosclerosis of [place] arteries of left leg with ulceration of [...] and callosities 03/13/2016 Diabetes mellitus ([facility]) Dystrophic nail 11/15/2016 Foot cramps Foot ulcer (HCC) 02/25/2019 OTHER PART OF FOOT Fracture of third toe, left, closed 02/15/2016 Fungal toenail infection 11/15/2016 GERD (gastroesophageal reflux disease) Glaucoma both eyes Heart murmur High cholesterol 03/27/2015 Hyperlipidemia Hypertension Ingrown toenail 10/30/2015 Leg cramps Metatarsalgia of both feet 10/07/2016 Neuropathy Non-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 ([facility]) 09/06/2016 Non-pressure chronic ulcer of left [...] toe 09/19/2017 Onychomycosis 12/13/2015 Osteomyelitis ([facility]) 04/23/2019 Peripheral vascular disease ([facility]) 08/17/2019 Pre-ulcerative calluses 08/13/2018 Right foot ulcer ([facility]) 09/26/2014 Shortness of breath Sprain of [...] diabetes mellitus with foot ulcer ([facility]) 06/19/2016 Type 2 diabetes, uncontrolled, with peripheral circulatory disorder ([facility]) 03/28/2017 Xerosis cutis 01/17/2016 Family History [...] for this visit. -Aerobic culture of the [id number] from the small finger of the right hand -Doxycycline 100 mg twice daily for 7 days -Mupirocin ointment to be applied 3 times daily to the affected area and a light layer -I have contacted Dr. Stanley's office in [place] and hoping to schedule a follow-up visit with Dr. Stanley for further evaluation of the patient's hand. Tia Baugh 05/01/2021 documented in this encounter [facility] 04-17-2021 History of Present illness Narrative Left [...] of her wounds documented in this encounter [facility] 04-12-2021 Note Procedure date: 04/12. Intraocular injection: 1.25 mg Bevacizumab (AVASTIN) 2.5mg/0.1 ML syringe [facility]: [id number], Lot: [id number], Expiration date: 06/10/2021 Route: Intravitreal, Site: Right Eye Notes Bevacizumab (Avastin) Intraocular Injection Right Eye - OPHTHALMOLOGY PROCEDURE NOTE PROCEDURE PERFORMED BY: Sharon Hernandez MD PROFESSOR/NURSE ANESTHETIST(S): None ATTENDING: Sharon Hernandez MD PROCEDURE DATE: 04/12/2021 PROCEDURE START TIME: 10:47 AM INDICATIONS: Treatment of ICD-10-CM 1. 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 Yes. [place] Protocol is required. Pre-procedure verification was completed. [...] saline and an antibiotic drop was instilled. [facility] 04-05-2021 Note Procedure date: 04/05. Intraocular injection: 1.25 mg Bevacizumab (AVASTIN) 2.5mg/0.1 ML syringe [facility]: 27354-479-83, Lot: [id number], Expiration date: 05/01/2021 Route: Intravitreal, Site: Left Eye Notes Bevacizumab (Avastin) Intraocular Injection Left Eye - OPHTHALMOLOGY PROCEDURE NOTE PROCEDURE PERFORMED BY: Sharon Hernandez MD PROFESSOR/NURSE ANESTHETIST(S): None ATTENDING: Sharon Hernandez MD PROCEDURE DATE: 04/05/2021 PROCEDURE START TIME: 11:15 AM INDICATIONS: Treatment of ICD-10-CM 1. 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 Yes. [place] Protocol is required. Pre-procedure verification was completed. [...] saline and an antibiotic drop was instilled. [facility] 03-27-2021 History of Present illness [...] of her wounds documented in this encounter [facility] 02-20-2021 Instructions Jef Sierra Jr., DPM - 02/20/2021 10:07 AM EST Continue topical antibiotic ointment and bandaid with padding. documented in this encounter [facility] 02-20-2021 History of Present illness Narrative HPI [...] without toes, left 01/26/2019 Asthma Atherosclerosis of [place] arteries of left leg with ulceration of [...] and callosities 03/13/2016 Diabetes mellitus ([facility]) Dystrophic nail 11/15/2016 Foot cramps Foot ulcer ([facility]) 02/25/2019 OTHER PART OF FOOT Fracture [...] involvement without evidence of necrosis ([facility]) 03/14/2017 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) 08/14/2016 Nondisplaced fracture of proximal phalanx of right great toe 09/19/2017 Onychomycosis 12/13/2015 Osteomyelitis ([facility]) 04/23/2019 Peripheral vascular disease ([facility]) 08/17/2019 Pre-ulcerative calluses 08/13/2018 Right foot ulcer ([facility]) 09/26/2014 Shortness of breath Sprain of calcaneofibular ligament of right ankle 12/05/2017 Swelling of both ankles Swelling of both lower extremities Thyroid disorder 03/27/2015 Tinea unguium 08/13/2018 Traumatic closed fracture of phalanx of foot with minimal displacement 08/11/2017 Traumatic closed nondisplaced fracture of phalanx of right foot with delayed healing 09/08/2017 Type 2 diabetes mellitus with diabetic neuropathy ([facility]) 11/11/2017 Diabetic autonomic (poly) neuropathy Type 2 diabetes mellitus with foot ulcer ([facility]) 06/19/2016 Type 2 diabetes, uncontrolled, with peripheral circulatory disorder ([facility]) 03/28/2017 Xerosis cutis 01/17/2016 Past Surgical [...] clean dry [facility] -Follow-up in 2 weeks to review. documented in this encounter [facility] 02-14-2021 Note Procedure date: 01/18. Right Eye [...] Recommendation for management is to continue treatment. [facility] 02-14-2021 Note Procedure date: 01/18. Intraocular injection: 1.25 mg Bevacizumab (AVASTIN) 2.5mg/0.1 ML syringe [facility]: [id number], Lot: [id number], Expiration date: 03/07/2021 Route: Intravitreal, Site: Right Eye Notes Bevacizumab (Avastin) Intraocular Injection Right Eye - OPHTHALMOLOGY PROCEDURE NOTE PROCEDURE PERFORMED BY: Sharon Hernandez MD PROFESSOR/NURSE ANESTHETIST(S): None ATTENDING: Sharon Hernandez MD PROCEDURE DATE: 02/14/2021 PROCEDURE START TIME: 10:25 AM INDICATIONS: Treatment of ICD-10-CM 1. 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 Yes. [place] Protocol is required. Pre-procedure verification was completed. [...] saline and an antibiotic drop was instilled. [facility] 02-12-2021 Note Procedure date: 01/18. Intraocular injection: 1.25 mg Bevacizumab (AVASTIN) 2.5mg/0.1 ML syringe [facility]: 53692-880-21, Lot: [id number], Expiration date: 03/01/2021 Route: Intravitreal, Site: Left Eye Notes Bevacizumab (Avastin) Intraocular Injection Left Eye - OPHTHALMOLOGY PROCEDURE NOTE PROCEDURE PERFORMED BY: Sharon Hernandez MD PROFESSOR/NURSE ANESTHETIST(S): None ATTENDING: Sharon Hernandez MD PROCEDURE DATE: 02/12/2021 PROCEDURE START TIME: 10:46 AM INDICATIONS: Treatment of ICD-10-CM 1. Diabetic macular edema E11.311 bevacizumab 1.25 MG/0.05 ML Solution WA BEVACIZUMAB SOLN - OS WA BEVACIZUMAB SOLN - OS EYE: Left (OS) [...] THIS PROCEDURE REQUIRE A UNIVERSAL PROTOCOL? Yes. [place] Protocol is required. Pre-procedure verification was completed. [...] saline and an antibiotic drop was instilled. [facility] 2021 History of Present illness [...] without toes, left 01/26/2019 Asthma Atherosclerosis of [place] arteries of left leg with ulceration of [...] ankle with fat layer exposed ([facility]) 09/06/2016 Non-pressure chronic ulcer of left lower leg with fat layer exposed ([facility]) 03/28/2017 Non-pressure chronic ulcer of other part of left foot with fat layer exposed ([facility]) 08/14/2017 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 involvement without evidence of necrosis ([facility]) 03/14/2017 Non-pressure chronic ulcer of right ankle limited to breakdown of skin ([facility]) 08/14/2016 Nondisplaced fracture of proximal phalanx of right great toe 09/19/2017 Onychomycosis 12/13/2015 Osteomyelitis ([facility]) 04/23/2019 Peripheral vascular disease ([facility]) 08/17/2019 Pre-ulcerative calluses 08/13/2018 Right foot ulcer ([facility]) 09/26/2014 Shortness of breath Sprain of calcaneofibular ligament of right ankle 12/05/2017 Swelling of both ankles Swelling of both lower extremities Thyroid disorder 03/27/2015 Tinea unguium 08/13/2018 Traumatic closed fracture of phalanx of foot with minimal displacement 08/11/2017 Traumatic closed nondisplaced fracture of phalanx of right foot with delayed healing 09/08/2017 Type 2 diabetes mellitus with diabetic neuropathy ([facility]) 11/11/2017 Diabetic autonomic (poly) neuropathy Type 2 diabetes mellitus with foot ulcer ([facility]) 06/19/2016 Type 2 diabetes, uncontrolled, with peripheral circulatory disorder ([facility]) 03/28/2017 Xerosis cutis 01/17/2016 Past Surgical [...] weeks to review. documented in this encounter [facility] 01-30-2021 History of Present illness Narrative HPI [...] without toes, left 01/26/2019 Asthma Atherosclerosis of [place] arteries of left leg with ulceration of [...] great toe of left foot ([facility]) 03/27/2015 Closed displaced fracture of first metatarsal bone 02/01/2016 Closed displaced fracture of first metatarsal bone of left foot with routine healing 04/17/2015 Contusion of great toe, right 11/04/2016 Contusion of right foot 11/11/2017 Corns and callosities 03/13/2016 Diabetes mellitus ([facility]) Dystrophic nail 11/15/2016 Foot cramps Foot ulcer ([facility]) 02/25/2019 OTHER PART OF FOOT Fracture of third toe, left, closed 02/15/2016 Fungal toenail infection 11/15/2016 GERD (gastroesophageal reflux disease) Glaucoma both eyes Heart murmur High cholesterol 03/27/2015 Hyperlipidemia Hypertension Ingrown toenail 10/30/2015 Leg cramps Metatarsalgia of both feet 10/07/2016 Neuropathy Non-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 ([facility]) 09/06/2016 Non-pressure chronic ulcer of left lower leg with fat layer exposed ([facility]) 03/28/2017 Non-pressure chronic ulcer of other part of left foot with fat layer exposed ([facility]) 08/14/2017 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 involvement without evidence of necrosis ([facility]) 03/14/2017 Non-pressure chronic ulcer of right ankle limited to breakdown of skin ([facility]) 08/14/2016 Nondisplaced fracture of proximal phalanx of right great toe 09/19/2017 Onychomycosis 12/13/2015 Osteomyelitis ([facility]) 04/23/2019 Peripheral vascular disease ([facility]) 08/17/2019 Pre-ulcerative calluses 08/13/2018 Right foot ulcer ([facility]) 09/26/2014 Shortness of breath Sprain of [...] uncontrolled, with peripheral circulatory disorder ([facility]) 03/28/2017 Xerosis cutis 01/17/2016 Past Surgical [...] clean dry and intact transtion back to [facility] boot with [facility]ist -Follow-up in 1 weeks to review. documented in this encounter [facility] 01-30-2021 Instructions Jef Sierra Jr., DPM - 01/30/2021 10:50 AM EST Continue ashu at home documented in this encounter [facility] 01-24-2021 History of Present illness Narrative HPI [...] without toes, left 01/26/2019 Asthma Atherosclerosis of [place] arteries of left leg with ulceration of other part of foot ([facility]) 03/14/2017 Back problem Bilateral foot-drop 02/01/2016 Callus of foot 03/16/2019 Cataract Cellulitis and abscess of foot excluding toe 09/26/2014 Cellulitis of great toe, right 10/30/2015 Cellulitis of left foot 08/14/2017 Cellulitis of left lower limb 09/01/2015 Cellulitis of right toe 11/15/2015 Cellulitis of second toe of right foot 11/15/2016 Chronic ulcer of great toe of left foot ([facility]) 03/27/2015 Closed displaced fracture of first metatarsal bone 02/01/2016 Closed displaced fracture of first metatarsal bone of left foot with routine healing 04/17/2015 Contusion of great toe, right 11/04/2016 Contusion of right foot 11/11/2017 Corns and callosities 03/13/2016 Diabetes mellitus ([facility]) Dystrophic nail 11/15/2016 Foot cramps Foot ulcer ([facility]) 02/25/2019 OTHER PART OF FOOT Fracture [...] leg with fat layer exposed ([facility]) 03/28/2017 Non-pressure chronic ulcer of other part of left foot with fat layer exposed ([facility]) 08/14/2017 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 involvement without evidence of necrosis ([facility]) 03/14/2017 Non-pressure chronic ulcer of right ankle limited to breakdown of skin ([facility]) 08/14/2016 Nondisplaced fracture of proximal phalanx of right great toe 09/19/2017 Onychomycosis 12/13/2015 Osteomyelitis ([facility]) 04/23/2019 Peripheral vascular disease ([facility]) 08/17/2019 Pre-ulcerative calluses 08/13/2018 Right foot ulcer ([facility]) 09/26/2014 Shortness of breath Sprain of calcaneofibular ligament of right ankle 12/05/2017 Swelling of both ankles Swelling of both lower extremities Thyroid disorder 03/27/2015 Tinea unguium 08/13/2018 Traumatic closed fracture of phalanx of foot with minimal displacement 08/11/2017 Traumatic closed nondisplaced fracture of phalanx of right foot with delayed healing 09/08/2017 Type 2 diabetes mellitus with diabetic neuropathy ([facility]) 11/11/2017 Diabetic autonomic (poly) neuropathy Type 2 diabetes mellitus with foot ulcer ([facility]) 06/19/2016 Type 2 diabetes, uncontrolled, with peripheral circulatory disorder ([facility]) 03/28/2017 Xerosis cutis 01/17/2016 Past Surgical [...] weeks to review. documented in this encounter [facility] 01-16-2021 History of Present illness Narrative HPI [...] without toes, left 01/26/2019 Asthma Atherosclerosis of [place] arteries of left leg with ulceration of other part of foot ([facility]) 03/14/2017 Back problem Bilateral foot-drop 02/01/2016 Callus of foot 03/16/2019 Cataract Cellulitis and abscess of foot excluding toe 09/26/2014 Cellulitis of great toe, right 10/30/2015 Cellulitis of left foot 08/14/2017 Cellulitis of left lower limb 09/01/2015 Cellulitis of right toe 11/15/2015 Cellulitis of second toe of right foot 11/15/2016 Chronic ulcer of great toe of left foot ([facility]) 03/27/2015 Closed displaced fracture of first metatarsal bone 02/01/2016 Closed displaced fracture of first metatarsal bone of left foot with routine healing 04/17/2015 Contusion of great toe, right 11/04/2016 Contusion of right foot 11/11/2017 Corns and callosities 03/13/2016 Diabetes mellitus ([facility]) Dystrophic nail 11/15/2016 Foot cramps Foot ulcer ([facility]) 02/25/2019 OTHER PART OF FOOT Fracture of third toe, left, closed 02/15/2016 Fungal toenail infection 11/15/2016 GERD (gastroesophageal reflux disease) Glaucoma both eyes Heart murmur High cholesterol 03/27/2015 Hyperlipidemia Hypertension Ingrown toenail 10/30/2015 Leg cramps Metatarsalgia of both feet 10/07/2016 Neuropathy Non-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 ([facility]) 09/06/2016 Non-pressure chronic ulcer of left lower leg with fat layer exposed ([facility]) 03/28/2017 Non-pressure chronic ulcer of other part of left foot with fat layer exposed (HCC) 08/14/2017 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 involvement without evidence of necrosis ([facility]) 03/14/2017 Non-pressure chronic ulcer of right ankle limited to breakdown of skin ([facility]) 08/14/2016 Nondisplaced fracture of proximal phalanx of right great toe 09/19/2017 Onychomycosis 12/13/2015 Osteomyelitis ([facility]) 04/23/2019 Peripheral vascular disease ([facility]) 08/17/2019 Pre-ulcerative calluses 08/13/2018 Right foot [...] uncontrolled, with peripheral circulatory disorder ([facility]) 03/28/2017 Xerosis cutis 01/17/2016 Past Surgical [...] weeks to review. documented in this encounter [facility] 01-16-2021 Instructions Jef Sierra Jr., DPM - 01/16/2021 11:27 AM EST Keep bandage clean dry and intat documented in this encounter [facility] 01-09-2021 History of Present illness Narrative HPI [...] without toes, left 01/26/2019 Asthma Atherosclerosis of [place] arteries of left leg with ulceration of other part of foot ([facility]) 03/14/2017 Back problem Bilateral foot-drop 02/01/2016 [...] and callosities 03/13/2016 Diabetes mellitus ([facility]) Dystrophic nail 11/15/2016 Foot cramps Foot [...] foot with fat layer exposed ([facility]) 08/14/2017 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 involvement without evidence of necrosis ([facility]) 03/14/2017 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) 08/14/2016 Nondisplaced fracture of proximal phalanx of right great toe 09/19/2017 Onychomycosis 12/13/2015 Osteomyelitis ([facility]) 04/23/2019 Peripheral vascular disease ([facility]) 08/17/2019 Pre-ulcerative calluses 08/13/2018 Right foot ulcer ([facility]) 09/26/2014 Shortness of breath Sprain of calcaneofibular ligament of right ankle 12/05/2017 Swelling of both ankles Swelling of both lower extremities Thyroid disorder 03/27/2015 Tinea unguium 08/13/2018 Traumatic closed fracture of phalanx of foot with minimal displacement 08/11/2017 Traumatic closed nondisplaced fracture of phalanx of right foot with delayed healing 09/08/2017 Type 2 diabetes mellitus with diabetic neuropathy ([facility]) 11/11/2017 Diabetic autonomic (poly) neuropathy Type 2 diabetes mellitus with foot ulcer ([facility]) 06/19/2016 Type 2 diabetes, uncontrolled, with peripheral circulatory disorder ([facility]) 03/28/2017 Xerosis cutis 01/17/2016 Past Surgical [...] weeks to review. documented in this encounter [facility] 01-09-2021 Instructions Jef Sierra Jr., DPM - 01/09/2021 8:49 AM EST Keep bandage clean dry and intact documented in this encounter [facility] 01-02-2021 Instructions Jef Sierra Jr., DPM - 01/02/2021 9:19 AM EST Keep bandages clean dry and intact for week documented in this encounter [facility] 01-02-2021 History of Present illness Narrative HPI [...] without toes, left 01/26/2019 Asthma Atherosclerosis of q[place] arteries of left leg with ulceration of other part of foot ([facility]) 03/14/2017 Back problem Bilateral foot-drop 02/01/2016 Callus of foot 03/16/2019 Cataract Cellulitis and abscess of foot excluding toe 09/26/2014 Cellulitis of great toe, right 10/30/2015 Cellulitis of left foot 08/14/2017 Cellulitis of left lower limb 09/01/2015 Cellulitis of right toe 11/15/2015 Cellulitis of second toe of right foot 11/15/2016 Chronic ulcer of great toe of left foot ([facility]) 03/27/2015 Closed displaced fracture of first metatarsal bone 02/01/2016 Closed displaced fracture of first metatarsal bone of left foot with routine healing 04/17/2015 Contusion of great toe, right 11/04/2016 Contusion of right foot 11/11/2017 Corns and callosities 03/13/2016 Diabetes mellitus ([facility]) Dystrophic nail 11/15/2016 Foot cramps Foot ulcer ([facility]) 02/25/2019 OTHER PART OF FOOT Fracture of third toe, left, closed 02/15/2016 Fungal toenail infection 11/15/2016 GERD (gastroesophageal reflux disease) Glaucoma both eyes Heart murmur High cholesterol 03/27/2015 Hyperlipidemia Hypertension Ingrown toenail 10/30/2015 Leg cramps Metatarsalgia of both feet 10/07/2016 Neuropathy Non-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 ([facility]) 09/06/2016 Non-pressure chronic ulcer of left lower leg with fat layer exposed ([facility]) 03/28/2017 Non-pressure chronic ulcer of other part of left foot with fat layer exposed ([facility]) 08/14/2017 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 involvement without evidence of necrosis ([facility]) 03/14/2017 Non-pressure chronic ulcer of right ankle limited to breakdown of skin ([facility]) 08/14/2016 Nondisplaced fracture of proximal phalanx of right great toe 09/19/2017 Onychomycosis 12/13/2015 Osteomyelitis ([facility]) 04/23/2019 Peripheral vascular disease ([facility]) 08/17/2019 Pre-ulcerative calluses 08/13/2018 Right foot ulcer ([facility]) 09/26/2014 Shortness of breath Sprain of calcaneofibular ligament of right ankle 12/05/2017 Swelling of both ankles Swelling of both lower extremities Thyroid disorder 03/27/2015 Tinea unguium 08/13/2018 Traumatic closed fracture of phalanx of foot with minimal displacement 08/11/2017 Traumatic closed nondisplaced fracture of phalanx of right foot with delayed healing 09/08/2017 Type 2 diabetes mellitus with diabetic neuropathy ([facility]) 11/11/2017 Diabetic autonomic (poly) neuropathy Type 2 diabetes mellitus with foot ulcer ([facility]) 06/19/2016 Type 2 diabetes, uncontrolled, with peripheral circulatory disorder ([facility]) 03/28/2017 Xerosis cutis 01/17/2016 Past Surgical [...] weeks to review. documented in this encounter [facility] 12-27-2020 Note Procedure date: 12/18. Intraocular injection: 1.25 mg Bevacizumab (AVASTIN) 2.5mg/0.1 ML syringe [facility]: [id number], Lot: [id number], Expiration date: 12/29/2020 Route: Intravitreal, Site: Left Eye Notes Bevacizumab (Avastin) Intraocular Injection Left Eye - OPHTHALMOLOGY PROCEDURE NOTE PROCEDURE PERFORMED BY: Sharon Hernandez MD PROFESSOR/NURSE ANESTHETIST(S): None ATTENDING: Sharon Hernandez MD PROCEDURE DATE: 12/27/2020 PROCEDURE START TIME: 10:17 AM INDICATIONS: Treatment of ICD-10-CM 1. Diabetic macular edema E11.311 OCT/HRT MACULA OU FUNDUS PHOTOGRAPHY-OU WA BEVACIZUMAB SOLN - OS WA BEVACIZUMAB SOLN - OS CANCELED: WA BEVACIZUMAB SOLN - OD EYE: Left (OS) [...] THIS PROCEDURE REQUIRE A UNIVERSAL PROTOCOL? Yes. [place] Protocol is required. Pre-procedure verification was completed. [...] saline and an antibiotic drop was instilled. [facility] 12-27-2020 Note Procedure date: 12/18. [...] Recommendation for management is to continue treatment. [facility] 12-19-2020 Instructions Jef Sierra Jr., DPM - 12/19/2020 11:28 AM EDT Keep bandage clean dry and intact documented in this encounter [facility] 12-19-2020 History of Present illness Narrative HPI [...] without toes, left 01/26/2019 Asthma Atherosclerosis of qawalangin arteries of left leg with ulceration of [...] ankle with fat layer exposed ([facility]) 09/06/2016 Non-pressure chronic ulcer of left lower leg with fat layer exposed ([facility]) 03/28/2017 Non-pressure chronic ulcer of other part of left foot with fat layer exposed ([facility]) 08/14/2017 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 involvement without evidence of necrosis ([facility]) 03/14/2017 Non-pressure chronic ulcer of right ankle limited to breakdown of skin ([facility]) 08/14/2016 Nondisplaced fracture of proximal phalanx of right great toe 09/19/2017 Onychomycosis 12/13/2015 Osteomyelitis ([facility]) 04/23/2019 Peripheral vascular disease ([facility]) 08/17/2019 Pre-ulcerative calluses 08/13/2018 Right foot ulcer ([facility]) 09/26/2014 Shortness of breath Sprain of calcaneofibular ligament of right ankle 12/05/2017 Swelling of both ankles Swelling of both lower extremities Thyroid disorder 03/27/2015 Tinea unguium 08/13/2018 Traumatic closed fracture of phalanx of foot with minimal displacement 08/11/2017 Traumatic closed nondisplaced fracture of phalanx of right foot with delayed healing 09/08/2017 Type 2 diabetes mellitus with diabetic neuropathy ([facility]) 11/11/2017 Diabetic autonomic (poly) neuropathy Type 2 diabetes mellitus with foot ulcer ([facility]) 06/19/2016 Type 2 diabetes, uncontrolled, with peripheral circulatory disorder ([facility]) 03/28/2017 Xerosis cutis 01/17/2016 Past Surgical [...] Friends and Family: Not on file Attends [employer] Services: Not on file Active Member of [...] weeks to review. documented in this encounter [facility] 12-13-2020 Note Procedure date: 11/18. Right Eye [...] Recommendation for management is to continue treatment. [facility] 12-13-2020 Note Procedure date: 11/18. Right Eye Quality was good. Findings include subretinal fluid. Interval change is same. Recommendation for management is to continue treatment. Left Eye Quality was good. Findings include subretinal fluid. Interval change is same. Recommendation for management is to continue treatment. [facility] 12-13-2020 Note Procedure date: 11/18. Intraocular injection: 1.25 mg Bevacizumab (AVASTIN) 2.5mg/0.1 ML syringe [facility]: 59617-488-79, Lot: [id number], Expiration date: 12/26/2020 Route: Intravitreal, Site: Right Eye Notes Bevacizumab (Avastin) Intraocular Injection Right Eye - OPHTHALMOLOGY PROCEDURE NOTE PROCEDURE PERFORMED BY: Sharon Hernandez MD PROFESSOR/NURSE ANESTHETIST(S): None ATTENDING: Sharon Hernandez MD PROCEDURE DATE: 12/13/2020 PROCEDURE START TIME: 10:05 AM INDICATIONS: Treatment of ICD-10-CM 1. Diabetic macular edema E11.311 bevacizumab 1.25 MG/0.05 ML Solution WA BEVACIZUMAB SOLN - OD OCT/HRT MACULA OU FUNDUS PHOTOGRAPHY-OU WA BEVACIZUMAB SOLN - OD OCT/HRT [place]A OU [...] THIS PROCEDURE REQUIRE A UNIVERSAL PROTOCOL? Yes. [place] Protocol is required. Pre-procedure verification was completed. [...] saline and an antibiotic drop was instilled. [facility] 10-17-2020 History of Present illness [...] as elevated morbidity. documented in this encounter [facility] 10-11-2020 Note Procedure date: 10/10. Right Eye [...] all questions answered Olga Lidia Matos M.D. Aircraft Seat Upholsterer of Ophthalmology Glaucoma Division [facility] [place] [facility] Department of Ophthalmology and Visual Science Chief [...] with Dr. Hernandez. Additional [facility] HPI reviewed and I agree with documentation Ocular Medications: 10/10/2020 Exam: CCT: AK=130 m; YS=216 m IOP: OD: 25, OS: 16, 10/10/2020 [...] time was spent with patient performing the electrical technician instructor work of this visit. documented in this encounter [facility] 10-10-2020 Instructions Olga Lidia Matos MD - 10/10/2020 1:45 PM EDT Right Eye: Dorzolamide/Timolol 2 times a day Rhopressa 1 drop at bedtime Left Eye: Dorzolamide/Timolol 2 times a day documented in this [facility] 10-03-2020 History of Present illness Narrative I was available on site at [place] for any urgent infusion issues. Jovon Bowers MD Professor of Neurology Director, Neuromuscular Division documented in this encounter [facility] 09-26-2020 History of Present illness Narrative [facility] [...] Left; Surgeon: Grace Washington MD; Location: [facility] PERIOP REPLANTATION AMPUTATED FINGER (DISTAL TIP TO [...] UNIT/ML Solution Pen-injector injection, 3 samples given--Lot [id number], exp 10/2021, Disp: 3 Prefilled Pen/Syringe, Rfl: 0 Insulin Lispro, 1 Unit Dial, 100 UNIT/ML Solution Pen-injector, Use less than 30 units daily with sliding scale., Disp: 5 Prefilled Pen/Syringe, Rfl: 3 Multiple Vitamin (MULTI-DAY PO), take 1 tablet by mouth daily.., Disp: , Rfl: tiZANidine 4 MG Tab tablet, tiZANidinetiZANidine (ZANAFLEX) 4 MG tablet as needed. [facility]olly [facility] ([id number]), Disp: , Rfl: acetaZOLAMIDE 250 MG tablet, Take 1 tablet by mouth 2 times daily. 90 day supply (Patient not taking: Reported on 09/13/2020), Disp: 180 tablet, Rfl: 1 cyanocobalamin 1000 MCG Tab, Take 2 tablets by mouth daily., Disp: 60 tablet, Rfl: 11 Insulin Degludec (Tresiba FlexTouch) 100 UNIT/ML Solution Pen-injector injection, 3 Samples given [id number], Exp 10/2021 (Patient not taking: Reported on 09/26/2020), Disp: 9 mL, Rfl: 0 Insulin Lispro, 1 Unit Dial, (HumaLOG KwikPen) 100 UNIT/ML Solution Pen-injector, Sample given [id number], exp 09/2022 (Patient not taking: Reported on 09/13/2020), Disp: 1 Prefilled Pen/Syringe, Rfl: 0 Insulin Lispro, 1 Unit Dial, (HumaLOG KwikPen) 100 UNIT/ML Solution Pen-injector, Sample given [id number], Exp-09/2022 (Patient not taking: Reported on 09/26/2020), [...] Social Gatherings with Friends and Family: Attends [employer] Services: Active Member of Clubs or Organizations: Attends Club or Organization Meetings: Marital Status: Intimate Partner Violence: Fear of Current or Ex-Partner: Emotionally Abused: Physically Abused: Sexually Abused: documented in this encounter [facility] 09-26-2020 Instructions Franck Mtz MD - 09/26/2020 [...] results come back. documented in this encounter [facility] 09-21-2020 History of Present illness Narrative The patient tolerated the infusion well without any complications. documented in this encounter [facility] 09-14-2020 History of Present illness Narrative HPI [...] without toes, left 01/26/2019 Asthma Atherosclerosis of qawalangin arteries of left leg with ulceration of [...] and callosities 03/13/2016 Diabetes mellitus ([facility]) Dystrophic nail 11/15/2016 Foot cramps Foot ulcer (HCC) 02/25/2019 OTHER PART OF FOOT Fracture of third toe, left, closed 02/15/2016 Fungal toenail infection 11/15/2016 GERD (gastroesophageal reflux disease) Glaucoma both eyes Heart murmur High cholesterol 03/27/2015 Hyperlipidemia Hypertension Ingrown toenail 10/30/2015 Leg cramps Metatarsalgia of both feet 10/07/2016 Neuropathy Non-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 ([facility]) 09/06/2016 Non-pressure chronic ulcer of left lower leg with fat layer exposed ([facility]) 03/28/2017 Non-pressure chronic ulcer of other part of left foot with fat layer exposed ([facility]) 08/14/2017 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 involvement without evidence of necrosis ([facility]) 03/14/2017 Non-pressure chronic ulcer of right ankle limited to breakdown of skin ([facility]) 08/14/2016 Nondisplaced fracture of proximal phalanx of right great toe 09/19/2017 Onychomycosis 12/13/2015 Osteomyelitis ([facility]) 04/23/2019 Peripheral vascular disease ([facility]) 08/17/2019 Pre-ulcerative calluses 08/13/2018 Right foot ulcer ([facility]) 09/26/2014 Shortness of breath Sprain of calcaneofibular ligament of right ankle 12/05/2017 Swelling of both ankles Swelling of both lower extremities Thyroid disorder 03/27/2015 Tinea unguium 08/13/2018 Traumatic closed fracture of phalanx of foot with minimal displacement 08/11/2017 Traumatic closed nondisplaced fracture of phalanx of right foot with delayed healing 09/08/2017 Type 2 diabetes mellitus with diabetic neuropathy ([facility]) 11/11/2017 Diabetic autonomic (poly) neuropathy Type 2 diabetes mellitus with foot ulcer ([facility]) 06/19/2016 Type 2 diabetes, uncontrolled, with peripheral circulatory disorder ([facility]) 03/28/2017 Xerosis cutis 01/17/2016 Past Surgical [...] Social Gatherings with Friends and Family: Attends [employer] Services: Active Member of Clubs or Organizations: [...] need for procedure. documented in this encounter [facility] 09-13-2020 History of Present illness Narrative History [...] a neurologist. She is also seeing a reducer and wound care. She has a follow-up [...] feels. To get her in touch with [employer], however she does not answer her phone if she does not recognize the number, so likely has been missing their calls. We will coordinate with [employer]; the tracking features of [employer] will undoubtedly help us help her. Hypothyroidism: [...] The patient is nervous/anxious. Patient last seen staff development educator 01/27/2018 Nursing Assessment: Physical Exam documented in this encounter [facility] Evaluation note Diagnosis Asthma, unspecified asthma severity, [...] inflammatory demyelinating polyneuritis [facility] Diagnosis Type 2 diabetes mellitus with diabetic polyneuropathy, with long-term current use of insulin- Primary Acquired hypothyroidism Unspecified hypothyroidism Diabetic macular edema- Primary [facility] Diagnosis 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 Diabetic macular edema- Primary [facility] Diagnosis 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 Diabetic macular edema- Primary [facility] Diagnosis 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 Diabetic macular edema- Primary [facility] Diagnosis 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 Diabetic macular edema- Primary [facility] Diagnosis Primary open angle glaucoma (POAG) of right eye, severe stage- Primary Primary open angle glaucoma (POAG) of left eye, severe stage Diabetic macular edema Pseudophakia Lens replaced by other means [facility] Diagnosis Non-intractable vomiting with nausea, unspecified vomiting type- Primary Altered mental status, unspecified altered mental status type Leukocytosis, unspecified type documented in this encounter [employer] Phone: evaluation note* Diagnosis Sepsis (HCC)- Primary [...] Acute intractable headache documented in [facility] encounter [facility] [employer] Phone: evaluation note* Diagnosis COVID-19- Primary Pneumonia of left lower lobe due to infectious organism Hypokalemia Hypopotassemia Hypomagnesemia Disorders of magnesium metabolism jail (current) use of antibiotics documented in this encounter [employer] Phone: [email or web address] note* Diagnosis COVID- Primary Encephalopathy Encephalopathy, unspecified 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 Hypokalemia Hypopotassemia Primary hypertension Unspecified essential hypertension Type 2 diabetes mellitus with diabetic polyneuropathy ([facility]) Type II or unspecified type diabetes mellitus with neurological manifestations, not stated as uncontrolled Hypothyroidism Unspecified hypothyroidism Hypomagnesemia Disorders of magnesium metabolism CIDP (chronic inflammatory demyelinating polyneuropathy) ([facility]) Chronic inflammatory demyelinating polyneuritis Bacteremia MSSA (methicillin susceptible Staphylococcus aureus) septicemia ([facility]) Methicillin susceptible staphylococcus aureus septicemia Bandemia CRP elevated Elevated C-reactive protein (CRP) Metabolic encephalopathy Normocytic anemia Anemia, unspecified Acute respiratory failure with hypoxemia ([facility]) Septic arthritis of cervical spine ([facility]) Pyogenic arthritis, other specified sites Atlantoaxial instability Other joint derangement, not elsewhere classified, other specified site ACP (advance care planning) Other specified counseling Goals of care, counseling/discussion Other specified counseling Encounter for palliative care Feeding difficulties Feeding difficulties and mismanagement On tube feeding diet Pathological fracture of other site, unspecified pathological cause, initial encounter documented in this encounter [facility] Phone: [email or web address] noteNo assessment information available [facility] Work Phone: Evaluation note* Diagnosis Atlantoaxial instability Other joint derangement, not elsewhere classified, other specified site S/P cervical spinal fusion Arthrodesis status documented in this encounter [facility] Phone: [email or web address] note* Diagnosis S/P cervical spinal fusion Arthrodesis status documented in this encounter [facility] Phone: [email or web address] note* Diagnosis Primary open angle glaucoma (POAG) of both eyes, moderate stage- Primary 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 mellitus ([facility]/HCC) Left posterior capsular opacification Unspecified after-cataract Dry eyes Unspecified tear film insufficiency [facility] Diagnosis Other atopic dermatitis- Primary Traumatic ulcer of left foot, unspecified ulcer stage ([facility]) Impetigo documented in this encounter [facility]* Diagnosis Primary open angle glaucoma (POAG) of both eyes, moderate stage- Primary 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 [ [address] [place] [address]: [place] Office - [address] [address] - Phone Number [phone] [place] Office - [address] [facility] [address] - Phone Number [phone] ] Rest and limit exertion / strenous activity. RETURN if symptoms CHANGE, NOT IMPROVING or need help.Take Medications as prescribed (if prescribed - Please take or use as directed) * Attachments The following attachments cannot be sent through Care Everywhere. * Cellulitis (Maltese) in this encounter* Instructions* Andres Lubin MD [...] sent through Care Everywhere. * Nail Avulsion (Maltese) documented in this encounter Additional Source Comments [...] CIDP (chronic inflammatory demyelinating polyneuropathy) Krystyna Busby [facility] [address] [facility] [id number] [place] [address] [address] [facility] [address] [place] [address] Referral ID Status Reason Start Date Expiration Date V isits Requested Visits Authorized [id number] Auth Not Needed 06/24/2018 100 100 Reason Comments Follow-up Diabetes Thyroid Problem Reason Comments Infusion Visit IVIG Specialty Diagnoses / Procedures Referred By Jeramy coombs Referred To Contact Diagnoses CIDP (chronic inflammatory demyelinating polyneuropathy) Krystyna Busby [facility] [address] [facility] [id number] [place] [address] Infusion [address] [facility] [address] [place] [address] Reason Comments Follow-up Reason Comments Glaucoma Follow-up Reason Comments Nausea Pt came from [facility] Per EMS she was outside and was brought back inside they were unaware she was outside. Per [facility] she is having bizarre behavior Emesis Altered Mental Status Reason Comments Altered Mental Status Specialty Diagnoses / Procedures Referred By Contmarium t Referred To Contact Diagnoses Altered mental state [facility] [address] [place] [address] [facility] [address] [place] [address] Referral ID Status Reason Start Date Expiration Date Visits Re quested Visits Authorized [id number] 1 1 Reason Comments Hypertension Patient was at [facility] for blood transfusion/low potassium transferred to ED for evaluation Reason Comments Follow-up Eye Exam Reason Comments Eczema Reason Comments Glaucoma INFORMATION SOURCE (unrecogn ized section and content) DATE CREATED AUTHOR 04/08/2018 [facility] DATE CREATED AUTHOR AUTHOR'S ORGANIZ ATION 06/07/2019 [facility] DATE CREATED AUTHOR AUTHOR'S ORGANIZ ATION 12/25/2019 [facility] DATE CREATED AUTHOR AUTHOR'S ORGANIZ ATION 02/13/2020 [facility] DATE CREATED AUTHOR AUTHOR'S ORGANIZ ATION 04/18/2021 [facility] DATE CREATED AUTHOR AUTHOR'S ORGANIZ ATION 05/02/2021 [facility] DATE CREATED AUTHOR AUTHOR'S ORGANIZ ATION 05/07/2021 [facility] DATE CREATED AUTHOR AUTHOR'S ORGANIZ ATION 05/09/2021 [facility] DATE CREATED AUTHOR AUTHOR'S ORGANIZ ATION 05/15/2021 [facility] DATE CREATED AUTHOR AUTHOR'S ORGANIZ ATION 06/01/2021 [facility] DATE CREATED AUTHOR AUTHOR'S ORGANIZ ATION 06/13/2021 [facility] DATE CREATED AUTHOR AUTHOR'S ORGANIZ ATION 09/05/2021 [facility] DATE CREATED AUTHOR AUTHOR'S ORGANIZ ATION 10/30/2021 [facility] DATE CREATED AUTHOR AUTHOR'S ORGANIZ ATION 11/27/2021 [facility] DATE CREATED AUTHOR AUTHOR'S ORGANIZ ATION 12/10/2021 [facility] DATE CREATED AUTHOR AUTHOR'S ORGANIZ ATION 11/25/2022 [facility] DATE CREATED AUTHOR AUTHOR'S ORGANIZ ATION 01/26/2023 [facility] DATE CREATED AUTHOR AUTHOR'S ORGANIZ ATION 05/07/2024 Reece Alarcon [facility] DATE CREATED AUTHOR AUTHOR'S ORGANIZ ATION 09/28/2024 [facility] dical Specialists EPIC Lindsey Bradshaw LPN [...] Care Teams (unrecognized sec tion and content) Director Of Pediatric Rehabilitation Relationship Specialty Start Date End Date Neri Santa, DO [address] [place] [address] PCP - General Family Medicine 03/28/17 Pili Gilliam DPM Consulting Physician Podiatry 04/07/17 Reji Miramontes III, Consulting Physician Vascular Surgery 04/07/17 Director Of Pediatric Rehabilitation Relationship Specialty Start Date End Date Neri Santa, DO [address] [place] [address] PCP - General Family Medicine 03/28/17 Pili Gilliam DPM Consulting Physician Podiatry 04/07/17 Reji Miramontes III, DO Consulting Physician Vascular Surgery 04/07/17 Director Of Pediatric Rehabilitation Relationship Specialty Start Date End Date Neri Santa, DO [address] [place] [address] PCP - General Family Medicine 03/28/17 Pili Gilliam, MARK Consulting Physician Podiatry 04/07/17 Reji Miramontes III, DO Consulting Physician Vascular Surgery 04/07/17 Director Of Pediatric Rehabilitation Relationship Specialty Start Date End Date Neri Santa, DO [address] [place] [address] PCP - General Family Medicine 03/28/17 Pili Gilliam, MARK Consulting Physician Podiatry 04/07/17 Reji Miramontes III, DO Consulting Physician Vascular Surgery 04/07/17 Director Of Pediatric Rehabilitation Relationship Specialty Start Date End Date Neri Santa, DO [address] [place] [address] PCP - General Family Medicine 03/28/17 Pili Gilliam, DPM Consulting Physician Podiatry 04/07/17 Reji Miramontes III, DO Consulting Physician Vascular Surgery 04/07/17 Director Of Pediatric Rehabilitation Relationship Specialty Start Date End Date Neri Santa, DO [address] [place] [address] PCP - General Family Medicine 03/28/17 Pili Gilliam, DPM Consulting Physician Podiatry 04/07/17 Reji Miramontes III, Consulting Physician Vascular Surgery 04/07/17 Director Of Pediatric Rehabilitation Relationship Specialty Start Date End Date Neri Santa, DO [address] [place] [address] PCP - General Family Medicine 03/06/17 Skylar Hernandez MD [address] [place] [address] Ophthalmology 07/18/17 Kartik Mejia MD [address] [place] [address] Pain Medicine 12/25/17 Tisha Arriaga MD [address] [place] [address] Neurologist Neurology 07/18/17 Luis Miguel Kaur MD [address] [place] [address] [id number] Business Executive Endocrinology, Diabetes & Metabolism 03/06/17 Chris Zavala, OD [address] [place] [address] Optometry 03/15/20 Director Of Pediatric Rehabilitation Relationship Specialty Start Date End Date Neri Santa, DO [address] [place] [address] PCP - General Family Medicine 03/06/17 Skylar Hernandez MD [address] [place] [address] Ophthalmology 07/18/17 Kartik Mejia MD [address] [place] [address] Pain Medicine 12/25/17 Tisha Arriaga MD [address] [place] [address] Neurologist Neurology 07/18/17 Luis Miguel Kaur MD [address] [place] [address] Business Executive Endocrinology, Diabetes & Metabolism 03/06/17 Chris Zavala, OD [address] [place] [address] Optometry 03/15/20 Director Of Pediatric Rehabilitation Relationship Specialty Start Date End Date Neri Santa DO [address] [place] [address] PCP - General Family Medicine 03/06/17 Skylar Hernandez MD [address] [place] [address] Ophthalmology 07/18/17 Kartik Mejia MD [address] [place] [address] Pain Medicine 12/25/17 Tisha Arriaga MD [address] [place] [address] Neurologist Neurology 07/18/17 Luis Miguel Kaur MD [address] [place] [address] Business Executive Endocrinology, Diabetes & Metabolism 03/06/17 Chris Zavala, OD [address] [place] [address] Optometry 03/15/20 Director Of Pediatric Rehabilitation Relationship Specialty Start Date End Date Neri Santa DO [address] [place] [address] PCP - General Family Medicine 03/06/17 Skylar Hernandez MD [address] [place] [address] Ophthalmology 07/18/17 Kartik Mejia MD [address] [place] [address] Pain Medicine 12/25/17 Tisha Arriaga MD [address] [place] [address] Neurologist Neurology 07/18/17 Luis Miguel Kaur MD [address] [place] [address] Business Executive Endocrinology, Diabetes & Metabolism 03/06/17 Chris Zavala, OD [address] [place] [address] Optometry 03/15/20 Director Of Pediatric Rehabilitation Relationship Specialty Start Date End Date Arina, Neri Parker, [address] [place] [address] PCP - General Family Medicine 03/06/17 Skylar Hernandez MD [address] [place] [address] Ophthalmology 07/18/17 Kartik Mejia MD [address] [place] [address] [place] [address] Pain Medicine 12/25/17 Tisha Arriaga MD [address] [place] [address] Neurologist Neurology 07/18/17 Luis Miguel Kaur MD [address] [place] [address] Business Executive Endocrinology, Diabetes & Metabolism 03/06/17 LucasChris, OD [address] [place] [address] Optometry 03/15/20 Director Of Pediatric Rehabilitation Relationship Specialty Start Date End Date Neri Santa, DO [address] [place] [address] PCP - General Family Medicine 03/06/17 Skylar Hernadnez MD [address] [place] [address] Ophthalmology 07/18/17 Kartik Mejia MD [address] [place] [address] Pain Medicine 12/25/17 Tisha Arriaga MD [address] [place], [place] [address] Neurologist Neurology 07/18/17 Luis Miguel Kaur MD [address] [place] [address] Business Executive Endocrinology, Diabetes & Metabolism 03/06/17 LucasChris, OD [address] [place] [address] Optometry 03/15/20 Director Of Pediatric Rehabilitation Relationship Specialty Start Date End Date Neri Santa, DO [address] [place] [address] PCP - General Family Medicine 03/06/17 Skylar Hernandez MD [address] [place] [address] Ophthalmology 07/18/17 Kartik eMjia MD [address] [place] [address] Pain Medicine 12/25/17 Tisha Arriaga MD [address] [place] [address] Neurologist Neurology 07/18/17 Luis Miguel Kaur MD [address] [place] [address] Business Executive Endocrinology, Diabetes & Metabolism 03/06/17 Chris Zavala, OD [address] [place] [address] Optometry 03/15/20 Director Of Pediatric Rehabilitation Relationship Specialty Start Date End Date Sr Neri Santa, [address] [place] [address] PCP - General Family Medicine 07/19/18 Director Of Pediatric Rehabilitation Relationship Specialty Start Date End Date Sr Neri Santa, DO [address] [place] [address] PCP - General Family Medicine 07/19/18 Director Of Pediatric Rehabilitation Relationship Specialty Start Date End Date Sr Neri Santa, DO [address] [place] [address] PCP - General Family Medicine 07/19/18 Director Of Pediatric Rehabilitation Relationship Specialty Start Date End Date Sr Neri Santa, DO [address] [place] [address] PCP - General Family Medicine 07/19/18 Team Status: Inactive Member Role Status Dates Rufus Shen II MD Attending Provider Active Director Of Pediatric Rehabilitation Relationship Specialty Start Date End Date Ganga Savage MD [address] [place], [place] [id number] PCP - General Internal Medicine 08/14/21 Director Of Pediatric Rehabilitation Relationship Specialty Start Date End Date Ganga Savage MD [address] [place] [address] PCP - General Internal Medicine 08/14/21 Director Of Pediatric Rehabilitation Relationship Specialty Start Date End Date Ganga Savage MD [facility] [place] [address] PCP - General Internal Medicine 08/14/21 Director Of Pediatric Rehabilitation Relationship Specialty Start Date End Date Neri Santa MD [address] [place] [address] PCP - General Family Medicine 08/12/22 Director Of Pediatric Rehabilitation Relationship Specialty Start Date End Date Neri Santa MD [address] [place] [address] PCP - General Family Medicine 08/12/22 Director Of Pediatric Rehabilitation Relationship Specialty Start Date End Date Neri Santa MD [address] [place] [address] PCP - General Family Medicine 08/12/22 Director Of Pediatric Rehabilitation Relationship Specialty Start Date End Date Neri Santa MD [address] [place] [address] PCP - General Family Medicine 08/12/22 Director Of Pediatric Rehabilitation Relationship Specialty Start Date End Date Neri Santa MD [address] [place] [address] PCP - General Family Medicine 08/12/22 Director Of Pediatric Rehabilitation Relationship Specialty Start Date End Date Neri Santa MD PCP - General Family Medicine 08/12/22 Director Of Pediatric Rehabilitation Relationship Specialty Start Date End Date Neri Santa MD PCP - General Family Medicine 08/12/22 Director Of Pediatric Rehabilitation Relationship Specialty Start Date End Date Neri [...] - Reason: Patient/family refused)1107 (Given - Provider: Seabs Arnold RN)1533 (Given - Provider: Sebas Arnold [...] - Provider: Kam Prado APRN - MANAGER MOBILE) 0900 (Held - Provider: Sebas Arnold RN [...] - Provider: Kam Prado APRN - MANAGER MOBILE) 09 (Held - Provider: Sebas Arnold RN [...] Glycemia running low)0900 (Held - Provider: Sebas Anrold RN - Reason: Order parameters not met) [...] RN) 914 (Patch Applied - Provider: Sebas Arnold RN)2114 [...] Provider: Sebas Arnold RN)2100 (Due - Provider: Rfuus Argueta MD) sodium chloride flush 0.9 % [...] RN) 1838 (New Bag - Provider: Sebas Anrold RN) 1406 (New Bag - Provider: Sebas [...] Pain Severe (7-10) 1348 (Given - Provider: Camiol Hernandez RN) 0522 (Given - Provider: Maggi [...] La Fuente RN)1655 (Given - Provider: Yolanda D eLa Fuente RN) 0821 (Given - Provider: Anna [...] Provider: Alejandra Goldberg RN)2052 (Given - Provider: Magig Multani, VIRGIE) 1030 (Given - Provider: Yolanda De La Fuente RN)1610 (Given - Provider: Yolanda De La Fuente RN)2205 (Given - Provider: Lubna Peralta RN) 1014 (Given - Provider: Anna Veliz RN)1517 (Given - Provider: Anna Veliz RN)2200 (Due - Provider: Linn Duvall [facility]) insulin glargine (LANTUS) injection vial 10 [...] (Due - Provider: Linn Duvall [facility]) valproic acid (DEPAKENE) 250 MG/5ML oral [...] Goldberg RN)1026 (Rate/Dose Change - Provider: Alejandra oGldberg RN)1031 (Rate/Dose Change - Provider: Alejandra Goldberg [...] iv AB is over - keep long chain quiller tender suppression 60 tablet 11 07/09/2021 07/09/2021 Prescription [...] BE BASED ON THE PRIMARY CLINICAL RECORDS. [employer] provides no warranty or guarantee of the accuracy or completeness of information in this document.
== END 2024-10-26 10:56 | disposition home or self-care (01) ==
LOC: WC 10:55
PROVIDERS: PCP Family Medicine; Visit Provider Physician Assistant
DX: E11.621 Type 2 diabetes mellitus with foot ulcer (principal); L97.521 Non-pressure chronic ulcer of other part of left foot limited to breakdown of skin; L97.422 Non-pressure chronic 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
CPT/HCPCS: 11043

== ENCOUNTER 2024-11-16 10:41 | Outpatient (OUT) | payer MEDICARE, OTHER, MEDICAID, SELFPAY ==
--- OUTSIDE RECORDS SUMMARY | 2013-06-21 11:42 | XMS_ITS | Continuity of Care Document ---
Author Organization [facility] Address [address] [place] [address] Phone Care Team Providers Care Process Project Engineer Name Role Phone Abhijeet VIVEROS, Beatrice Unavailable Unavailable Allergies, Adverse Reactions, Alerts Substance Reaction Status Criticality MOXIFLOXACIN HCL skin rash, edema, itching Active No Information Medications Medication Instructions Dosage Effective Dates (start - stop) Status Comments MS Contin 15 mg tablet,extended release take 1 tablet (15MG) by oral route every 12 hours 15 MG - Active Lisinopril 20 mg Tab take 1 tablet (20MG ) by ORAL route every day 20 MG - Active Glucophage 1,000 mg Tab take 1 tablet (1000MG) by ORAL route 2 times every day with morning and evening meals - Active Levemir 100 unit/mL Sub-Q inject by Subcutaneous route per insulin sliding scale protocol - Active Procedures Procedure Date Offic Outpt E&m Estab Low-mod 3 PQRI 117 Dilated Diabetic Exam 13 OCT Retina Offic/outpt E&m Estab Mod-hi Offic/outpt E&m New Mod-hi 45 1 Advance Directives Directive Yes / No Effective Date File Name No Information Encounters Encounter Description Practice Location Reason(s) For Visit Diagnoses Date Provider Providers Copied on Encounter [facility], [address] [facility], [place], [place], [id number] , [place] tel:[phone] [facility] [place] No Information 4 Abhijeet Beatrice. [address] [facility], [place], [address]. tel:[phone] Offic Outpt E&m Estab Low-mod [facility], [address], [place], [place], [id number] , [place] tel:[phone] [facility] Diabetes Mellitus, Juvenile, ControlledPrimary Open Angle GlaucomaSenile Nuclear Cataract Nov-0 3 Radu Strange. [address], [place], [place], [facility], [place]. tel:[phone] Specialist : Elissa Mahoney MD, [address], [place], [address]. tel:[phone] erring Provider: Jeffery VENTURA, [address], [place], [address]. tel:[phone] Offic/outpt E&m Estab Mod-hi [facility], [address] [facility], [place], [place], [id number] , [place] tel:[phone] [facility] Diabetes Mellitus, Juvenile, ControlledPrimary Open Angle GlaucomaSenile Nuclear CataractPost-Subca psular Senile CataractDiabetic Macular Edema June-0 3 Radu Strange. [address], [address], [place], [address], [place]. tel:[phone] Referring Provider: Jeffery VENTURA, [address], [place], [address]. tel:[phone] Offic/outpt E&m New Mod-hi 45 [facility], [address] [facility], [place], [place], [id number] , [place] tel:[phone] [facility] Diabetes Non-Insulin Dependent-No OcularPrimary Open Angle GlaucomaDiabetes Insulin Dependent-No Ocular Sep-2 1 Radu Strange. [address], [address], [place], [address], [place]. tel:[phone] Referring Provider: Tyrone Cervantes Jr, MD E, [address], [place], [address]. tel:[phone] Family History Family Member Type Diagnosis Age At Onset mom Problem (finding) Thyroid Dis mom, grandma Problem (finding) stroke dad-pancreas, MGM Problem (finding) Cancer mom, grandma Problem (finding) Heart mom, dad, grandma Problem (finding) Maternal his tory of diabetes mellitus mom, dad Problem (finding) HTN Payers Payer name Insurance type Covered alliance party ID Authoriza tion(s) Medicare Cigna [id number] [facility] [id number] Social History Type Description Quantity Date Captured Comments Sex Female Smoking Status No Information Chief Complaint And Reason For Visit No Information Reason For Referral Reason For Referral No Information History Of Present Illness Encounter Date Complaint History Of Prese nt Illness No Information Functional Status Date Functional Assessmen t No Information Instructions Date Instruction Additional Infor mation - Return in 6 months with Jeffery Lovelace D.O. for follow-up. Related to Post-Subcapsular Senile Cataract Diabetes Mellitus, J uvenile, Controlled (OU).Primary Open Angle Glaucoma (OU), treated. followed by Vivien.Senile Nuclear Cataract (OS). - Discussed diagnosis in detail with patient. Discussed treatment options with patient. Reassured patient of current condition and treatment. Will continue to observe condition and or symptoms. Call if VA worsens. Emphasized blood sugar control. Related to Post-Subcapsular Senile Cataract - Return in 6 months with Jeffery Lovelace D.O. for follow-up. Related to Post-Subcapsular Senile Cataract Diabetes Mellitus, J uvenile, Controlled (OU).Primary Open Angle Glaucoma (OU).Senile Nuclear Cataract (OU).Post-Subcapsular Senile Cataract (OD). - Discussed diagnosis in detail with patient. Will continue to observe condition and or symptoms. Emphasized blood sugar control. Patient instructed to call if condition gets worse. Call if VA worsens. No diabetic retinopathy seen today. Related to Post-Subcapsular Senile Cataract Assessments Type Assessment Date No Information Patient Care Teams Name Effective Dates (start - stop) Status Members No Information
--- OUTSIDE RECORDS SUMMARY | 2023-09-01 06:43 | XMS_ITS | Continuity of Care Document ---
Author Organization [address] [place] [address] Address [address] [place] [address] Care Team Providers Care Material Dispatcher Name Role Phone Garfield Damon OD Unavailable [...] Diagnoses Date Provider Providers Copied on Encounter [facility] [address], [id number] , [facility] Presbyopia [address] [place]. [address] [facility], [address], [place], [place], [id number], . tel:[phone] NURSING FAC CARE SUBSEQ [facility] Of [address], [id number] , [facility] Acquired absence of other left toe(s)Corns and callositiesOther specified peripheral vascular diseasesNail dystrophyTinea unguiumType 1 diabetes mellitus with diabetic neuropathy, unspecifiedLong term (current) use of insulinPressure ulcer of other site, stage 1Long term (current) use of oral hypoglycemic drugs 4 [place], [place]. Referring Provider: Nam Schreiber. [facility] [place] [address], [place], [place], [id number] , [facility] Glaucoma (chief complaint) Type 2 diabetes mellitus with moderate nonproliferative diabetic retinopathy with macular edema, bilateralPrimary open-angle glaucoma, bilateral, indeterminate stage 4 Nelson Merrill. [address] [facility], [address], [place], [place], [id number], [place]. tel:[phone] Referring Provider: Lalitha Barroso. NURSING FAC CARE SUBSEQ [facility] Of [address], [id number] , [facility] impacted cerumen, ear care exam (chief complaint) Sensorineural hearing loss, bilateral 4 Reji Gaviria. [address] [facility], [address], [place], [id number], [place]. tel:[phone] Referring Provider: Lalitha Barroso. [facility] [address] [facility], [place], [place], [id number] , [facility] No Information 4 Reji BennettKhadra. [address] [facility], [address], [place], [place], [id number], . tel:[phone] [facility] [address] [facility], [place], [place], [id number] , [facility] Sensorineural hearing loss, unilateral, left ear, with restricted hearing on the contralateral sideTinnitus, bilateral 4 Billy Coleman. , [place]. Referring Provider: Lalitha Barroso. [facility] [place] [address], [place], [place], [id number] , [facility] Acquired absence of other left toe(s)noodle maker (current) use of oral hypoglycemic drugsNail dystrophyOther specified peripheral vascular diseasesTinea unguiumType 2 diabetes mellitus with diabetic neuropathy, unspecifiedXeros is cutisCorns and callosities 4 [place]. , [place]. Referring Provider: Lalitha Barroso. [facility] [address] [facility], [place], [place], [id number] , [facility] Acquired absence of other left toe(s)noodle maker (current) use of oral hypoglycemic drugsNail dystrophyOther specified peripheral vascular diseasesTinea unguiumType 2 diabetes mellitus with diabetic neuropathy, unspecifiedXeros is cutis 4 Abner Seaman. , [place]. Referring Provider: Lalitha Barroso. [facility] [address], [place], [place], [id number] , [facility] ear care exam, impacted cerumen (chief complaint) Impacted cerumen, bilateral 4 Tien Thomas. , [place]. Referring Provider: Lalitha Barroso. [facility] [address], [place], [place], [id number] , [facility] Diabetic eye exam (chief complaint) Type 2 diabetes mellitus with moderate nonproliferative diabetic retinopathy with macular edema, bilateralPrimary open-angle glaucoma, bilateral, indeterminate stage Dec-2 1-202 3 [place]. [address] [facility], [address], [place], [place], [id number], [place]. tel:[phone] Referring Provider: Lalitha Barroso. [facility] [place] [address], [place], [place], [id number] , [facility] Tinea unguiumType 2 diabetes mellitus with diabetic neuropathy, unspecifiedLong term (current) use of oral hypoglycemic drugsAcquired absence of other left toe(s)Nail dystrophyXerosis cutisOther specified peripheral vascular diseases 3 Abner Wilkes , [place]. Referring Provider: Tobias Perez. [facility] [place] [address], [place], [place], [id number] , [facility] Presbyopia [address] [place]. [address] [facility], [address], [place], [place], [id number], . tel:[phone] [facility] [place] [address], [place], [place], [id number] , [facility] Type 2 diabetes mellitus with diabetic neuropathy, unspecifiedLong term (current) use of oral hypoglycemic drugsTinea unguium 3 Aidan Lindquist. . Referring Provider: Tobias Perez. [facility] Of [place] [address], [place], [place], [id number] , [facility] Encounter for dental examination and cleaning without abnormal findings 3 Rakesh Moya. , [place]. Referring Provider: Tobias Perez. [facility] [address], [place], [place], [id number] , [facility] Presbyopia 3 Nelson Merr[place]. [address] [facility], [address], [place], [place], [id number], [place]. tel:[phone] [facility] [address], [place], [place], [id number] , [facility] ear care exam, impacted cerumen (chief complaint) Impacted cerumen, bilateral 3 Tien Joya , [place]. Referring Provider: Tobias Perez. [facility] [place] [address], [place], [place], [id number] , [facility] Diabetic eye exam (chief complaint) Type 2 diabetes mellitus with moderate nonproliferative diabetic retinopathy with macular edema, bilateralPrimary open-angle glaucoma, bilateral, indeterminate stage 3 Nelson Merr[place]. [address], [address], [place], [place], [id number], [place]. tel:[phone] Referring Provider: Tobias Perez. Family History Family Member Type Diagnosis Age At Onset No Information Payers Payer name Insurance type Covered green party ID Authoriza tielio(s) Medicaid [facility] [id number] Social History Type Description Quantity Date Captured Comments Sex Female Smoking Status No Information Chief Complaint And Reason For Visit No Information Reason For Referral Reason For Referral No Information Plan Of Treatment Date Type Action Status Goal Tdap. Due on due Goal Hemoglobin A1C. Due on due Goal PAP. Due on due Goal Mammogram. Due on due Goal Colonoscopy. Due on due Goal Foot exam. Due on due Goal Unhealthy drug u se screening. Due on due Goal Urine microalbumin. Due on due Goal HPV screening. Due on due Goal Dilated eye exam. Due on Aug due Goal Pneumococcal vaccine. Due on due Goal HPV. Due on due Goal Td vaccine. Due on due Goal Hepatitis C screening. Due o n due Goal ASCVD 10 year risk. Due on due Goal GFR. Due on due Goal Dental exam. Due on due Goal Influenza vaccine. Due on due Goal Depression screening. Due on due Goal FOBT. Due on due Goal Lipid panel. Due on due Goal Zoster vaccine (). Due on due Goal HPV screening. Due on due Goal Hemoglobin A1C. Due on due Goal Dilated eye exam. Due on Aug due Goal Influenza vaccine. Due on due Goal FOBT. Due on due Goal Dental exam. Due on due Goal Urine microalbumin. Due on due Goal Depression screening. Due on due Goal Colonoscopy. Due on due Goal Td vaccine. Due on due Goal Pneumococcal vaccine. Due on due Goal HPV. Due on due Goal Lipid panel. Due on due Goal PAP. Due on due Goal ASCVD 10 year risk. Due on due Goal Mammogram. Due on due Goal Zoster vaccine (). Due on due Goal Foot exam. Due on due Goal Tdap. Due on due Goal Hepatitis C screening. Due o n due Goal GFR. Due on due Goal Unhealthy drug u se screening. Due on due Goal Lipid panel. Due on due Goal Pneumococcal vaccine. Due on due Goal HPV. Due on due Goal Depression screening. Due on due Goal Influenza vaccine. Due on due Goal Hemoglobin A1C. Due on due Goal GFR. Due on due Goal ASCVD 10 year risk. Due on due Goal Foot exam. Due on due Goal Dilated eye exam. Due on Jul due Goal HPV screening. Due on due Goal Hepatitis C screening. Due o n due Goal FOBT. Due on due Goal Td vaccine. Due on due Goal Dental exam. Due on due Goal Urine microalbumin. Due on due Goal Mammogram. Due on due Goal Tdap. Due on due Goal PAP. Due on due Goal Zoster vaccine (1st). Due on due Goal Colonoscopy. Due on due Goal Unhealthy drug u se screening. Due on due Goal HPV screening. Due on due Goal Influenza vaccine. Due on due Goal GFR. Due on due Goal FOBT. Due on due Goal Colonoscopy. Due on due Goal ASCVD 10 year risk. Due on due Goal Urine microalbumin. Due on due Goal Td vaccine. Due on due Goal Dilated eye exam. Due on Jul due Goal Pneumococcal vaccine. Due on due Goal Hemoglobin A1C. Due on due Goal Hepatitis C screening. Due o n due Goal Mammogram. Due on due Goal Tdap. Due on due Goal Unhealthy drug u se screening. Due on due Goal Foot exam. Due on due Goal PAP. Due on due Goal Depression screening. Due on due Goal Dental exam. Due on due Goal Zoster vaccine (1st). Due on due Goal Lipid panel. Due on due Goal Tdap. Due on due Goal Colonoscopy. Due on due Goal Foot exam. Due on due Goal ASCVD 10 year risk. Due on M due Goal Influenza vaccine. Due on due Goal Unhealthy drug u se screening. Due on due Goal Pneumococcal vaccine. Due on due Goal Hemoglobin A1C. Due on due Goal Urine microalbumin. Due on due Goal Td vaccine. Due on due Goal Dilated eye exam. Due on June due Goal FOBT. Due on due Goal Mammogram. Due on due Goal PAP. Due on due Goal HPV screening. Due on due Goal Depression screening. Due on due Goal GFR. Due on due Goal Lipid panel. Due on due Goal Dental exam. Due on due Goal HPV. Due on due Goal Zoster vaccine (). Due on due Goal Hepatitis C screening. Due o n due Goal Dental exam. Due on due Goal Foot exam. Due on due Goal HPV. Due on due Goal Unhealthy drug u se screening. Due on due Goal HPV screening. Due on due Goal Depression screening. Due on due Goal Influenza vaccine. Due on due Goal Colonoscopy. Due on due Goal Tdap. Due on due Goal PAP. Due on due Goal Hemoglobin A1C. Due on due Goal Lipid panel. Due on due Goal Td vaccine. Due on due Goal Zoster vaccine (). Due on due Goal FOBT. Due on due Goal Hepatitis C screening. Due o n due Goal ASCVD 10 year risk. Due on due Goal Dilated eye exam. Due on June due Goal GFR. Due on due Goal Pneumococcal vaccine. Due on due Goal Urine microalbumin. Due on due Goal Mammogram. Due on due Goal Zoster vaccine (). Due on due Goal Mammogram. Due on due Goal Depression screening. Due on due Goal Hemoglobin A1C. Due on due Goal Colonoscopy. Due on due Goal PAP. Due on due Goal Influenza vaccine. Due on due Goal GFR. Due on due Goal Hepatitis C screening. Due o n due Goal Dilated eye exam. Due on Apr due Goal Tdap. Due on due Goal Dental exam. Due on due Goal Lipid panel. Due on due Goal Pneumococcal vaccine. Due on due Goal Urine microalbumin. Due on due Goal FOBT. Due on due Goal Td vaccine. Due on due Goal HPV. Due on due Goal Unhealthy drug u se screening. Due on due Goal Foot exam. Due on due Goal HPV screening. Due on due Goal ASCVD 10 year risk. Due on due Goal Hepatitis C screening. Due o n due Goal Urine microalbumin. Due on due Goal Colonoscopy. Due on due Goal Td vaccine. Due on due Goal Foot exam. Due on due Goal HPV. Due on due Goal HPV screening. Due on due Goal Pneumococcal vaccine. Due on due Goal PAP. Due on due Goal ASCVD 10 year risk. Due on due Goal Dental exam. Due on due Goal Tdap. Due on due Goal Hemoglobin A1C. Due on due Goal GFR. Due on due Goal Dilated eye exam. Due on Feb due Goal Depression screening. Due on due Goal Lipid panel. Due on 024 due Goal FOBT. Due on due Goal Influenza vaccine. Due on due Goal Unhealthy drug u se screening. Due on due Goal Mammogram. Due on due Goal Zoster vaccine (). Due on due Goal Td vaccine. Due on due Goal Zoster vaccine (). Due on due Goal Colonoscopy. Due on due Goal Hepatitis C screening. Due o n due Goal Pneumococcal vaccine. Due on due Goal Foot exam. Due on due Goal GFR. Due on due Goal Lipid panel. Due on due Goal Unhealthy drug u se screening. Due on due Goal PAP. Due on due Goal Mammogram. Due on due Goal Urine microalbumin. Due on due Goal Tdap. Due on due Goal FOBT. Due on due Goal Hemoglobin A1C. Due on due Goal Dilated eye exam. Due on Jan due Goal HPV. Due on due Goal Influenza vaccine. Due on due Goal ASCVD 10 year risk. Due on due Goal Dental exam. Due on due Goal Depression screening. Due on due Goal HPV screening. Due on due Goal Unhealthy drug u se screening. Due on due Goal ASCVD 10 year risk. Due on due Goal Hepatitis C screening. Due o n due Goal Dental exam. Due on due Goal PAP. Due on due Goal Depression screening. Due on due Goal Lipid panel. Due on due Goal Pneumococcal vaccine. Due on due Goal Foot exam. Due on due Goal GFR. Due on due Goal Zoster vaccine (). Due on due Goal Td vaccine. Due on due Goal Urine microalbumin. Due on due Goal Influenza vaccine. Due on due Goal Tdap. Due on due Goal HPV screening. Due on due Goal FOBT. Due on due Goal Dilated eye exam. Due on Jan due Goal HPV. Due on due Goal Mammogram. Due on due Goal Hemoglobin A1C. Due on due Goal Colonoscopy. Due on due Goal Foot exam. Due on due Goal Colonoscopy. Due on due Goal PAP. Due on due Goal Lipid panel. Due on due Goal HPV screening. Due on due Goal Depression screening. Due on due Goal HPV. Due on due Goal Pneumococcal vaccine. Due on due Goal Unhealthy drug u se screening. Due on due Goal Td vaccine. Due on due Goal Zoster vaccine (). Due on due Goal FOBT. Due on due Goal GFR. Due on due Goal Dental exam. Due on due Goal Hemoglobin A1C. Due on due Goal ASCVD 10 year risk. Due on O due Goal Tdap. Due on due Goal Hepatitis C screening. Due o n due Goal Dilated eye exam. Due on Nov due Goal Influenza vaccine. Due on Oc due Goal Mammogram. Due on due Goal Urine microalbumin. Due on O due Goal Hepatitis C screening. Due o n due Goal HPV screening. Due on due Goal Dental exam. Due on due Goal Mammogram. Due on due Goal Zoster vaccine (). Due on due Goal Depression screening. Due on due Goal Td vaccine. Due on due Goal Pneumococcal vaccine. Due on due Goal Influenza vaccine. Due on due Goal PAP. Due on due Goal Foot exam. Due on due Goal Dilated eye exam. Due on Sep due Goal HPV. Due on due Goal FOBT. Due on due Goal GFR. Due on due Goal Lipid panel. Due on due Goal Urine microalbumin. Due on due Goal Tdap. Due on due Goal Hemoglobin A1C. Due on due Goal Unhealthy drug u se screening. Due on due Goal ASCVD 10 year risk. Due on due Goal Colonoscopy. Due on due Goal Hemoglobin A1C. Due on due Goal Dental exam. Due on due Goal Urine microalbumin. Due on due Goal Td vaccine. Due on due Goal Colonoscopy. Due on due Goal Influenza vaccine. Due on due Goal Hepatitis C screening. Due o n due Goal Lipid panel. Due on due Goal PAP. Due on due Goal Mammogram. Due on due Goal Pneumococcal vaccine. Due on due Goal ASCVD 10 year risk. Due on due Goal Depression screening. Due on due Goal GFR. Due on due Goal HPV screening. Due on due Goal Zoster vaccine (). Due on due Goal Unhealthy drug u se screening. Due on due Goal Tdap. Due on due Goal Dilated eye exam. Due on Aug due Goal HPV. Due on due Goal Foot exam. Due on due Goal FOBT. Due on due Goal Hemoglobin A1C. Due on due Goal PAP. Due on due Goal Dental exam. Due on 023 due Goal Zoster vaccine (). Due on due Goal Colonoscopy. Due on 023 due Goal ASCVD 10 year risk. Due on due Goal Pneumococcal vaccine. Due on due Goal Foot exam. Due on due Goal GFR. Due on due Goal FOBT. Due on due Goal HPV. Due on due Goal Hepatitis C screening. Due o n due Goal Influenza vaccine. Due on due Goal Lipid panel. Due on due Goal Td vaccine. Due on due Goal Dilated eye exam. Due on Aug due Goal Urine microalbumin. Due on due Goal Depression screening. Due on due Goal Unhealthy drug u se screening. Due on due Goal Mammogram. Due on due Goal HPV screening. Due on due Goal Tdap. Due on due Goal Hemoglobin A1C. Due on due Goal Dilated eye exam. Due on Jul due Goal Dental exam. Due on due Goal GFR. Due on due Goal Urine microalbumin. Due on due Goal ASCVD 10 year risk. Due on due Goal Foot exam. Due on due Goal Colonoscopy. Due on due Goal Zoster vaccine (1st). Due on due Goal HPV. Due on due Goal FOBT. Due on due Goal Unhealthy drug u se screening. Due on due Goal PAP. Due on due Goal Mammogram. Due on due Goal Td vaccine. Due on due Goal Pneumococcal vaccine. Due on due Goal Hepatitis C screening. Due o n due Goal Depression screening. Due on due Goal Lipid panel. Due on 023 due Goal Influenza vaccine. Due on due Goal Tdap. Due on due Patient Education Earwax Blockage: Care I [...] and other symptoms. Related to Nail dystrophy Follow up - Return i n 3-6 months for retina eval. Impression/Plan - gl auoma OU, optic pallor, large CD. Monitor for progression. IOP is excellent today. continue meds. Related to Primary open-angle glaucoma, bilateral, indeterminate stage Impression/Plan - Mi ld non-proliferative diabetic retinopathy. No treatment indicated as this time. appears stable from previous, educated patient. Adequate diabetic control recommended. We will monitor at regular intervals. Related to Type 2 diabetes mellitus with moderate nonproliferative diabetic retinopathy with macular edema, bilateral Follow up in 6-9 mon ths for [...] cerumen impaction. Related to Impacted cerumen, bilateral Follow up - Return i n 6-9 months for dilated fundus exam. Impression/Plan - Gl aucoma well controlled on current meds. IOP much improved today. We will continue to monitor at regular intervals. Related to Primary open-angle glaucoma, bilateral, indeterminate stage Impression/Plan - Mo derate non-proliferative diabetic retinopathy with no macular edema present. Saw specialist per patient, vision is improved today. Advised to monitor diabetes control closely. We will monitor for progression. Related to Type 2 diabetes mellitus with moderate nonproliferative diabetic retinopathy with macular edema, bilateral OTC lotion applied. Webspaces cleaned with alcohol/gauze.Discussed [...] 1-3 months Related to Impacted cerumen, bilateral Follow up - Return i n 3-6 months for IOP / gonio / pachymetry. Impression/Plan - Gl aucoma, IOP normal today, should be getting brimonidine bid OU, monitor for progression. Have specialist assess. high risk. Related to Primary open-angle glaucoma, bilateral, indeterminate stage Impression/Plan - Mo derate non-proliferative diabetic retinopathy with no macular edema present. Advised to monitor diabetes control closely. Refer to retina specialist to assess. Related to Type 2 diabetes mellitus with moderate nonproliferative diabetic retinopathy with macular edema, bilateral Assessments Type Assessment Date assessment Presbyopia Patient Care Teams Name Effective Dates (start - stop) Status Members No Information
--- OUTSIDE RECORDS SUMMARY | 2024-09-27 12:55 | XMS_ITS ---
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 Name Role Phone Jennifer, John Attending Unavailable Jami Onofre Attending Unavailable Jami Onofre Attending Unavailable LEILA LINTON Attending Unavailable LEILA LINTON Admitting Unavailable SKYLAR WHITFIELD Attending Unavailable AKUA ROJAS Referring Unavailable STEPHANIE DONG Attending Unavailable SKYLAR WHITFIELD Attending Unavailable PROBLEMS No Problem Records Found PROCEDURES No Procedure Records Found RESULTS ED PATIENT EDUCATION NOTE Observed: 03/21 2:34 PM Status: F Source: [facility] ED Patient Education Note Orthopedics Acute Back [...] Managing pain, stiffness, and swelling ??? Take jlzc-cpo-joudvpp and prescription medicines only as told by [...] and keep your elbows bent at a 90- degree angle (right angle). ? Sit high and close to the steering wheel when you drive. Add lower back (lumbar) support to your car seat, if needed. ??? Take short walks on even surfaces as soon as you are able. Try to increase the length of time you walk each day. ??? Do not sit, drive, or ship joiner one place for more than 30 minutes [...] new bowel or bladder control problems. ??? You have unusual weakness or numbness in your arms or legs. ??? You feel faint. These symptoms may represent a serious problem that is an emergency. Do not wait to see if the symptoms will go away. Get medical help right away. Call your local emergency services (911 in the [place] Do not drive yourself to the hospital. Summary ??? Acute back pain is sudden and usually short-lived. ??? Use proper lifting techniques. When you bend and lift, use positions that put less stress on your back. ??? Take diel-gyw-rmfwant and prescription medicines only as told by your health care provider, and apply heat or ice as told. This information is not intended to replace advice given to you by your health care provider. Make sure you discuss any questions you have with your health care provider. Document Revised: 04/27/2021 Document Reviewed: 04/27/2021 Elsevier Patient Education ? 2023 [employer]. ED PATIENT SUMMARY Observed: 04/16/2024 2:34 PM Status: F Source: [facility] ED Patient Summary [place] [id number] Patient Discharge Instructions Person Information Name: MEG FERNANDEZ Age: 59 Years Arrival Date: 04/16/2024 10:20:31 Discharge Diagnosis: Back pain; Fall Primary Care Physician: Jami Payne Provider Information Primary Provider: Garfield Rodriguez DO Advanced Hygiene Coordinator:Jeff Clancy PA-C The exam and treatment you received in the Emergency Department were for an urgent problem and are not intended as complete care. It is important that you follow up with a doctor, nurse practitioner, or physician???s assistant corporate secretary for ongoing care. If your symptoms become worse or you do not improve as expected and you are unable to reach your usual health care provider, you should return to the Emergency Department. We are available 24 hours a day. REBECCA MEG Jemal has been given the following list of [...] opioids can be used to help relieve yotjuohn-bb-pofsfe pain and are often prescribed following a [...] guidance from the Food and Drug Administration (www.fda.gov/Drugs/ResourcesForYou). ??? Visit www.cdc.gov/drugoverdose to learn about the risks of opioids abuse and overdose. ??? If you believe you may be struggling with addiction, tell your health careers counsellor and ask for guidance or call [facility]???S National Helpline at 0-882-243-FEZC. p Source: US Department of Health and Human Services/Center for Disease Control & Prevention [facility] Medications Given: Medication Dose Route morphine 8.00 mg IntraMuscular Left Deltoid ondansetron 4.00 mg Oral Medication Information: New Medications [facility] #[id number], [address], [place] [id number], [phone] acetaminophen-oxycodone (Percocet 5 mg-325 mg oral tablet) 1 [...] hours as needed for pain. Refills: 0. Comment: Patient Portal You may access all of your results and other medical record information on our secure patient portal. If you are not signed up for this yet, please contact [employer] Management at [phone] to get signed up today. EVIE Award Nomination The EVIE (Diseases Attacking the Immune SYstem) Award is an international recognition program that honors and celebrates the skillful, compassionate care nurses provide every day. Anyone who experiences or observes amazing care being provided by a nurse is encouraged to submit a nomination. To nominate your nurse, use your smart phone to scan the QR code below. You may receive a survey from Adeline García asking you to rate your care experience. Your feedback is important and will help us understand what we do well and how we can improve the quality of care we provide to you, your loved ones and our community. It???s an honor to serve you. Thank you for choosing [facility] Patient Education Materials: Acute Back Pain, Adult Acute back pain [...] Managing pain, stiffness, and swelling ??? Take wjsh-mnt-flartoa and prescription medicines only as told by [...] and keep your elbows bent at a 90- degree angle (right angle). ? Sit high and close to the steering wheel when you drive. Add lower back (lumbar) support to your car seat, if needed. ??? Take short walks on even surfaces as soon as you are able. Try to increase the length of time you walk each day. ??? Do not sit, drive, or ship joiner one place for more than 30 minutes [...] new bowel or bladder control problems. ??? You have unusual weakness or numbness in your arms or legs. ??? You feel faint. These symptoms may represent a serious problem that is an emergency. Do not wait to see if the symptoms will go away. Get medical help right away. Call your local emergency services (911 in the [place] Do not drive yourself to the hospital. Summary ??? Acute back pain is sudden and usually short-lived. ??? Use proper lifting techniques. When you bend and lift, use positions that put less stress on your back. ??? Take ikuy-byz-wpjtiga and prescription medicines only as told by your health care provider, and apply heat or ice as told. This information is not intended to replace advice given to you by your health care provider. Make sure you discuss any questions you have with your health care provider. Document Revised: 04/27/2021 Document Reviewed: 04/27/2021 ElseElli Health Patient Education ? 2023 [employer] IREBECCA TRUDY L , have received the following patient education materials/instructions and have verbalized understanding: Patient Education Materials: Acute Back Pain, Adult Follow-up Instructions: With: Address: When: Jami Onofre In 3 days 04/19/2024 Patient Signature Date Clinician/Nurse Signature Date 04/16/2024 14:34:47 ED CLINICAL SUMMARY Observed: 04/16/2024 2:34 PM Status: F Source: [facility] ED Clinical Summary [place] [id number] ED Clinical Summary Person Information Name: MEG FERNANDEZ [facility] Age: 59 Years : 1965 Sex: Female Language: Sinhala PCP: Jami Payne Marital Status: Visit Id: [...] 04/16/2024 14:34:45 04/16/2024 14:34:45 04/16/2024 14:34:45 ADDRESS: [address] [place] [address] [place] [id number] PHYS DOC NOTES: MEDICAL INFORMATION: Prescriptions Given: New Medications [id number], [address], [place] [id number], [phone] acetaminophen-oxycodone (Percocet 5 mg-325 mg oral tablet) 1 [...] 3 days 04/19/2024 DIAGNOSIS: Back pain; Fall ED NOTE-PHYSICIAN Observed: 04/16/2024 1:14 PM Status: F Source: [facility] ED Note-Physician Basic Information Time Seen: Jeff Clancy PA-C 04/16/2024 10:24 Chief Complaint Fall last night [...] Assessment/Plan Back pain (M54.9: Dorsalgia, unspecified) Ordered: acetaminophen-oxycodone, 1 tab(s), Oral, q6hr as needed for pain for 3 day(s), 15 tab(s), Refill(s) 0, [facility]/pharmacy #[id number], 165.1, cm, 04/16/24 10:29:00 EST, Height/Length [...] made to ensure accuracy, however, inadvertently computerized global account director mistakes may be present. Appropriate healthcare PPE [...] Type 2 diabetes mellitus Procedure/Surgical History EGD (esophagogastroduodenoscopic) electrohydraulic lithotripsy of bezoar in stomach (03/07/2023), Amputated toe (09/04/2015), LEFT GREAT TOE ULCER DEBRIDEMENT (04/19/2013), 1994 sinus surgery, cholecystectomy 2010, Eye, HEEL ON LEFT FOOT, left achilles tendon release, lumbar L4-5 repair of nerve sheath 1996, lumbar L4-5 surgery 1995, Rotator cuff repair, skin graft left foot, Tonsillectomy. Medications Inpatient No active inpatient medications Home aspirin 325 mg oral capsule, 325 mg= [...] levothyroxine 100 mcg (0.1 mg) Tab, 100 mcg= 1 tab(s), Oral, Daily lidocaine 4% patch, 1 patch(es), Topical, Daily melatonin, 5 mg, Oral, Once a day (at bedtime) metoclopramide 5 mg Tab, 5 mg= 1 tab(s), Oral, TIDWM, PRN Milk of Magnesia, 400 mg, Oral, Once a day (at bedtime) MiraLax, 17 gm, Oral, Daily Multivitamins and Minerals, 1 tab, Oral, Daily ofloxacin Otic 0.3% Aixa, 5 drop(s), Otic, BID omeprazole 40 mg Cap-DR, 40 mg= 1 cap(s), Oral, Daily, 3 refills pantoprazole, 40 mg, Oral, Daily Percocet 5 mg-325 mg oral tablet, 1 tab(s), Oral, q6hr, PRN potassium chloride, 40 mEq, Oral, Bedtime Seroquel, 75 mg, Oral, Bedtime sucralfate 1 g Tab traMADOL 50 mg Tab, 50 mg= 1 tab(s), Oral, q12hr, PRN Vitamin D3 400 intl units oral capsule, 10 mcg= 1 cap(s), Oral, Daily Allergies Avelox Keflex Nucynta fentaNYL (Skin breakdown/lesions) Social History Alcohol - Denies Alcohol Use, 08/10/2014 Beer, 01/07/2023 Substance Abuse - Denies Substance Abuse, 10/27/2014 Tobacco - Denies Tobacco Use, 08/10/2014 Former smoker, quit more than 30 days ago Tobacco Use:. Never Smokeless Tobacco Use:. Cigarettes, 11/21/2023 Former Smoker, 09/22/2014 Family History Diabetes mellitus type 2: Mother and Father. Lab Results No qualifying data available. Diagnostic Results CT Spine Lumbar w/o Contrast 04/16/24 12:18:38 IMPRESSION: MARKED DIFFUSE DEGENERATIVE CHANGE LOWER LUMBAR [...] as low as reasonably achievable. Ordering Provider: Jeff Clancy Signed By: Terence Arcos MD Result Comment: Electronical ly Signed By: Jeff Clancy PA-C\.br\Date and Time Signed: 04/16/24 13:24 EST\.br\Electronically Co-Signed By: Garfield Rodriguez DO\.br\Date and Time Co-Signed: 04/17/24 07:[address] SPINE LUMBAR W/O CONTRAST Observed: 0 04/16/2024 11:23 AM Status: F Source: [facility] Exam Date/Time: 04/16/2024 11:38 EST Reason for [...] Clancy FINAL REPORT Dictated: 04/16/2024 12:15 pm Terence Arcos MD Signed (Electronic Signature): 04/16/2024 12:15 pm Signed by: Terence Arcos MD Transcribed by: SINDY Technologist: HIWOT PRE-ARRIVAL NOTE Observed: 04/16/2024 10:22 AM Status: F Source: [facility] Pre-Arrival Note Pre-Arrival Summary Name: , wilfred Current Date: 04/16/2024 10:22:29 EST Gender: Female Date of : Age: 60 Pre-Arrival Type: EMS ETA: 04/16/2024 10:38:00 EST Primary Care Physician: Presenting Problem: fall Pre-Arrival User: Shirin Miller RN Referring Source: Location: ID Completion Date/Time: 04/16/2024 10:09:00 [facility] Emergency Department Pre-Hospital Report Form Vital Signs: Pre-Hospital Report: Treatment in Route: Response to Treatment: Misc. Issues: FAMILY MEDICINE OFFICE/CLINI C NOTE Observed: 11/25/2023 12:16 PM Status: F Source: [facility] Family Medicine Office/Clini c Note Chief Complaint 1m f/u HPI Staff 1m follow up Patient is here for follow up on hyperlipidemia: Do you have side effects from the medication? no Refill needed?: _ Yearly Lipid labs: 11/19/23 Patient is here for follow up on Diabetes. How often are you checking your blood sugars? _? resides at [facility] Do you have any of the following symptoms? Vision problems? no? Lightheadedness? no? Paresthesias, Ulcerations or sores? no? Patient is here for follow up on Thyroid Disease. Do you have any of the following symptoms? Change in energy level? no Weight change? no Heat/cold intolerance? no Hair/skin/nail changes? no Change in bowels? no Last TSH: [facility] to have labs completed prior to today's [...] Type 2 diabetes mellitus Procedure/Surgical History EGD (esophagogastroduodenoscopic) electrohydraulic lithotripsy of bezoar in stomach (03/07/2023), [...] levothyroxine 100 mcg (0.1 mg) Tab, 100 mcg= 1 tab(s), Oral, Daily lidocaine 4% patch, 1 patch(es), Topical, Daily melatonin, 5 mg, Oral, Once a day (at bedtime) metoclopramide 5 mg Tab, 5 mg= 1 tab(s), Oral, TIDWM, PRN Milk of Magnesia, 400 mg, Oral, Once a day (at bedtime) MiraLax, 17 gm, Oral, Daily Multivitamins and Minerals, 1 tab, Oral, Daily omeprazole 40 mg Cap-DR, 40 mg= 1 cap(s), Oral, Daily, 3 refills pantoprazole, 40 mg, Oral, Daily potassium chloride, 40 mEq, Oral, Bedtime Seroquel, 75 mg, Oral, Bedtime sucralfate 1 g Tab traMADOL 50 mg Tab, 50 mg= 1 tab(s), Oral, q12hr, PRN Vitamin D3 400 intl units oral capsule, 10 mcg= 1 cap(s), Oral, Daily Allergies Avelox Keflex Nucynta fentaNYL (Skin breakdown/lesions) Social History Alcohol - Denies Alcohol Use, 08/10/2014 Beer, 01/07/2023 Substance Abuse - Denies Substance Abuse, 10/27/2014 Tobacco - Denies Tobacco Use, 08/10/2014 Former smoker, quit more than 30 days ago Tobacco Use:. Never Smokeless Tobacco Use:. Cigarettes, 11/21/2023 Former Smoker, 09/22/2014 Family History Diabetes mellitus type 2: Mother and Father. Immunizations Vaccine Date Status Comments influenza virus vaccine, inactivated - Not Given Patient Refuses influenza virus vaccine, inactivated - Not Given Patient Refuses influenza virus vaccine, inactivated - Not Given Patient Refuses pneumococcal 20-valent conjugate vaccine 11/21/2022 Recorded influenza virus vaccine, inactivated 12/10/2021 Recorded zoster vaccine live 11/04/2013 Recorded influenza virus vaccine, inactivated 11/04/2013 Recorded pneumococcal 23-valent vaccine 07/29/2012 Recorded Result Comment: Electronical ly Signed By: Jami Payne\.br\Date and Time Signed: 11/25/23 12:17 EDT PRE-VISIT PLANNING Observed: 11/20/2023 11:04 AM Status: C Source: [facility] Pre-Visit Planning From: Mai Wilkins To: Jami Payne; Sent: 11/20/2023 11:04:45 EDT Subject: Pre-Visit Planning Due Date/Time: 11/20/2023 11:04:00 EDT Caller Name: MEG FERNANDEZ; Caller Number: Cynthia , Sallie Dorian Farrell. [...] feel free to contact me at extension [phone]. Thank you! Mai Wilkins LPN Clinical Camera Mechanic [place] [address] Extension: [phone] [email or web address] From: Jami Payne To: Mai Wilkins; Sent: 11/21/2023 08:41:15 EDT Subject: RE: Pre-Visit Planning Caller Name: REBECCAMEG; Caller Number: Cynthia , M major depressive disorder, recurrent moderate ALLERGIES DATE TYPE / CODE NAME / CODE REACTION SEVERITY SOURCE [id number](SNOMED CT) shellfish [facility] [id number](SNOMED CT) Shrimp [facility] [id number](SNOMED CT) GoLYTELY 787.0 [facility] Miscellaneous Allergy/825201123(SNOMED CT) Keflex [facility] [id number](SNOMED CT) Avelox [facility] [id number](SNOMED CT) Nucynta [facility] [id number](SNOMED CT) fentaNYL Skin breakdown/lesions [facility] ENCOUNTERS ADMIT/DISCHARGE ACCOUNT NUMBER ADMITTING ENCOUNTER CLASS LOCATION SOURCE 09/27/2024/09/28/19 [id number] Ambulatory Building:NO MS NB OPHT [facility] EPIC 08/27/2024/08/28/19 [id number] Ambulatory Building:NO MS SWSDERM [facility] EPIC 06/28/2024/06/29/19 [id number] Ambulatory Building:NO MS NB OPHT [facility] EPIC 04/16/2024/04/16/19 [id number] Emergency FTBuildin g:EDRoom: ED-07Bed: CD:[id number] [facility] 02/23/2024 [id number] Ambulatory [facility] Mone lding:[facility] 11/21/2023/11/21/19 24 [id number] Ambulatory [facility] EmanuelBui lding:[facility] 05/27/2023/05/27/19 [id number] ROYERLEILA [facility] PAYERS ENCOUNTER GUARANTOR PAYER SUBSCRIBER SOURCE 09/27/2024 MEG L SENIASDOB: [place], [place] [address]Pnd: () Primary Insurance:MEDICARE Policy Number: [id number] Date:1437-75-55Mpr n Name:Medicare MEG L SENIASDOB: [id number] [place] [address] [facility] EPIC 09/27/2024 Secondary Insurance:EDWAR darnell Number: [id number] Date:2004-01-11 MEG L SENIASDOB: [id number] [place] [address] [facility] EPIC 09/27/2024 Tertiary Insurance[place]: [id number] babar Date:2022-04-17 MEG L SENIASDOB: [id number] [place] [address] [facility] EPIC 08/27/2024 MEG Jemal SENIASDOB: [place], [place] [address]Vfn: () Primary Insurance:MEDICARE Policy Number: [id number] Date:1568-67-63Szl n Name:Medicare MEG Joaquin BAYSDOB: [id number] [place] [address] [facility] EPIC 08/27/2024 Secondary Insurance:DEMETRIUSElena darnell Number: [id number] Date:2004-01-11 MEG L BAYSDOB: [id number] [place] [address] [facility] EPIC 08/27/2024 Tertiary Insurance[place]: [id number] babar Date:2022-04-17 MEG L BAYSDOB: [id number] [place], [place] [address] [place] [address] [facility] 06/28/2024 MEG L BAYSDOB: [place], [place] [address]Jqn: (HP) Primary Insurance:MEDICARE Policy Number: [id number] Date:5738-14-00Okd n Name:Medicare MEG Joaquin BAYSDOB: [id number] [place], [place] [address] [place] [address] [facility] 06/28/2024 Secondary Insurance:EDWAR darnell Number: [id number] Date:2004-01-11 MEG Joaquin BAYSDOB: [id number] [place] [address] [facility] EP[facility] 06/28/2024 Tertiary Insurance:[place] Number: [id number] babar Date:2022-04-17 MEG L BAYSDOB: [id number] [place] [address] [facility] EPIC 04/16/2024 MEG L BAYSDOB: [facility] 202Tel: (HP) Primary Insurance:MEDICARE Policy Number: [id number] Date:9815-23-80[address], [place] [address]XI: MEG Joaquin [facility] 04/16/2024 Secondary Insurance:DEMETRIUSElena aysefranki Number: [id number] Date:6719-70-76X[address] [address], [place] [address]HJ: MEG Joaquin [facility] 04/16/2024 Tertiary Insurance:Medicaid Policy Number: [id number] babar Date:2105-66-21QM [address], [place] [address]MC: MEG Joaquin [facility] 02/23/2024 MEG CONNSDOB: [address]Tel: ~(424 (HP) Primary Insurance:MEDICARE Policy Number: [id number] Date:2209-42-75ML [address], [place] [address]HC: MEG Joaquin [facility] 02/23/2024 Secondary Insurance:Medicaid Policy Number: [id number] babar Date:5061-85-47WL [address], [place] [address]HP: MEG Joaquin [facility] 02/23/2024 Tertiary Insurance:EDWAR darnell Number: [id number] Date:0965-16-07FG [address] [address], [place] [address]RL: MEG Joaquin [facility] 11/21/2023 MEG Joaquin BAYSDOB: [address]Tel: ~(436 (HP) Primary Insurance:MEDICARE Policy Number: [id number] Date:2644-79-51XI [address], [place] [address]EM: MEG Joaquin [facility] 11/21/2023 Secondary Insurance:Medicaid Policy Number: [id number] babar Date:1278-81-83VZ [address], [place] [address]XF: MEG L [facility] 05/27/2023 MEG L [place] LINDENSDOB: [id number]Tel: () Primary Insurance:MEDICARE Policy Number: [id number] Date:4521-63-53HQ [address], [place] [address]UC: MEG L [facility] 05/27/2023 Secondary [facility]averay Number: [id number] Date:6999-86-89VD [address] [address], [place] [address]ZI: MEG L [facility] 05/27/2023 Tertiary Insurance:Medicaid Policy Number: [id number] babar Date:1148-08-61JB [address], [place] [address]QW: MEG [facility]
--- OUTSIDE RECORDS SUMMARY | 2024-11-16 10:43 | XMS_ITS | Encounter Summary ---
Author Organization [facility] Address [address] [place] [address] Care Team Providers Care Structural Manager Name Role Phone Aamir Purcell MD Primary Care Provider Encounter Details Date Type Department Care Team (Late st Contact Info) Description 08/16/2024 Abstract [facility] 112 [facility] 110 [place] [address] Aamir Purcell MD [address] [place] [address] Social History Tobacco Use Types Packs/Day Years [...] Center Eye [address] [place] [phone] Adilson Johnson, DO [address] [place] [address] documented as of this encounter Visit Diagnoses Not on filedocumented in this encounter Care Teams Structural Manager Relationship Specialty Start Date End Date Aamir Purcell MD PCP - General Family Medicine 08/12/22 documented as of this encounter
--- OUTSIDE RECORDS SUMMARY | 2024-11-16 10:43 | XMS_ITS | Encounter Summary ---
Author Organization [facility] Address [address] [place] [address] Care Team Providers Care Machine Maintenance Repairer Name Role Phone Aamir Purcell MD Primary Care Provider [phone] Encounter Details Date Type Department Care Team (Late st Contact Info) Description 06/28/2024 Abstract [facility] 112 [facility] 110 [place] [address] Unallocated, Noms MD Garrick [address] [place] [address] Social History Tobacco Use Types Packs/Day Years [...] 12/27/2024 1:45 PM EST Office Visit [facility] Eye [address] [place] [phone] Adilson Johnson, DO [address] [place] [address] documented as of this encounter Visit Diagnoses Not on filedocumented in this encounter Care Teams Machine Maintenance Repairer Relationship Specialty Start Date End Date Aamir Purcell MD PCP - General Family Medicine 08/12/22 documented as of this encounter
--- OUTSIDE RECORDS SUMMARY | 2024-11-16 10:43 | XMS_ITS | Encounter Summary ---
Author Organization [facility] Address [address] [place] [address] Care Team Providers Care Dual Rate Supervisor Name Role Phone Aamir Purcell MD Primary Care Provider [phone] Encounter Details Date Type Department Care Team (Late st Contact Info) Description 08/09/2024 Abstract [facility] [address] [facility] 110 [place] [address] Unallocated, Noms MD Garrick [address] [place] [address] Social History Tobacco Use Types Packs/Day Years [...] Hospital Eye [address] [place] [phone] Adilson Johnson, DO [address] [place] [address] documented as of this encounter Visit Diagnoses Not on filedocumented in this encounter Care Teams Dual Rate Supervisor Relationship Specialty Start Date End Date Aamir Purcell MD PCP - General Family Medicine 08/12/22 documented as of this encounter
--- OUTSIDE RECORDS SUMMARY | 2024-11-16 10:43 | XMS_ITS | Encounter Summary ---
Author Organization [facility] Address [address] [place] [address] Care Team Providers Care Logging Equipment Mechanic Name Role Phone Aamir Purcell MD Primary Care Provider [phone] Encounter Details Date Type Department Care Team (Late st Contact Info) Description 05/03/2024 Abstract [facility] 112 [facility] 110 [place] [address] Unallocated, Noms MD Garrick [address] [place] [address] Social History Tobacco Use Types Packs/Day Years [...] 12/27/2024 1:45 PM EST Office Visit [facility] Eye [address] [place] [phone] Adilson Johnson, DO [address] [place] [address] documented as of this encounter Visit Diagnoses Not on filedocumented in this encounter Care Teams Logging Equipment Mechanic Relationship Specialty Start Date End Date Aamir Purcell MD PCP - General Family Medicine 08/12/22 documented as of this encounter
--- OUTSIDE RECORDS SUMMARY | 2024-11-16 10:43 | XMS_ITS | Encounter Summary ---
Author Organization [facility] Address [address] [place] [address] Care Team Providers Care Inside Account Representative Name Role Phone Aamir Purcell MD Primary Care Provider [phone] Encounter Details Date Type Department Care Team (Late st Contact Info) Description 12/13/2022 Clinisync Result Encounter [facility] External Department Unsolicited Maine Chávez, HAND TAPPER 112 [facility] 110 [place] [address] Social History Tobacco Use Types Packs/Day Years [...] 12/27/2024 1:45 PM EST Office Visit [facility] [address] [place] [phone] Adilson Johnson, DO [address] [place] [address] documented as of this encounter Procedures Procedure [...] by: SINDY Technologist: ANGÉLICA us Maine Chávez HAND TAPPER [facility] Final Result documented in this encounter Visit Diagnoses Not on filedocumented in this encounter Care Teams Inside Account Representative Relationship Specialty Start Date End Date Aamir Purcell MD PCP - General Family Medicine 08/12/22 documented as of this encounter
--- OUTSIDE RECORDS SUMMARY | 2024-11-16 10:43 | XMS_ITS | Encounter Summary ---
Author Organization [facility] Address [address] [place] [address] Care Team Providers Care Statement Services Representative Name Role Phone Aamir Purcell MD Primary Care Provider [phone] Encounter Details Date Type Department Care Team (Late st Contact Info) Description 05/05/2024 Abstract [facility] 112 [facility] 110 [place] [address] Unallocated, Noms MD Garrick [address] [place] [address] Social History Tobacco Use Types Packs/Day Years [...] 12/27/2024 1:45 PM EST Office Visit [facility] Eye [address] [place] [phone] Adilson Johnson, DO [address] [place] [address] documented as of this encounter Visit Diagnoses Not on filedocumented in this encounter Care Teams Statement Services Representative Relationship Specialty Start Date End Date Aamir Purcell MD PCP - General Family Medicine 08/12/22 documented as of this encounter
--- OUTSIDE RECORDS SUMMARY | 2024-11-16 10:43 | XMS_ITS | Encounter Summary ---
Author Organization [facility] Address [address] [place] [address] Care Team Providers Care Insurance Instructor Name Role Phone Aamir Purcell MD Primary Care Provider Encounter Details Date Type Department Care Team (Late st Contact Info) Description 04/19/2024 [facility] [address] [place] [phone] Unallocated, Noms MD Garrick [address] [place] [address] Social History Tobacco Use Types Packs/Day Years [...] 12/27/2024 1:45 PM EST Office Visit [facility] [address] [place] [phone] Adilson Johnson, DO [address] [place] [address] documented as of this encounter Visit Diagnoses Not on filedocumented in this encounter Care Teams Insurance Instructor Relationship Specialty Start Date End Date Aamir Purcell MD PCP - General Family Medicine 08/12/22 documented as of this encounter
--- OUTSIDE RECORDS SUMMARY | 2024-11-16 10:43 | XMS_ITS | Encounter Summary ---
Author Organization [facility] Address [address] [place] [address] Care Team Providers Care Account Collector Name Role Phone Aamir Purcell MD Primary Care Provider [phone] Encounter Details Date Type Department Care Team (Late st Contact Info) Description 11/25/2022 Orders Only [facility] 112 [facility] 110 [place] [address] A, Unknown Practice [address] [place] [phone] Social History Tobacco Use Types Packs/Day Years [...] 12/27/2024 1:45 PM EST Office Visit [facility] Eye [address] [place] [phone] Adilson Johnson, DO [address] [place] [address] documented as of this encounter Procedures Procedure Name Priority Date/Time Associated Diagnosis Comments SCANNED LABS Routine 11/23/2022 9:24 AM EDT documented in this encounter Results * SCANNED LABS (11/23/2022 9:24 AM EDT) us Unknown Practice A LAB CHG PERFORMABLES Final Re sult documented in this encounter Visit Diagnoses Not on filedocumented in this encounter Care Teams Account Collector Relationship Specialty Start Date End Date Aamir Purcell MD PCP - General Family Medicine 08/12/22 documented as of this encounter
--- OUTSIDE RECORDS SUMMARY | 2024-11-16 10:43 | XMS_ITS | Encounter Summary ---
Author Organization [facility] Address [address] [place] [address] Care Team Providers Care Crew Leader Gluing Name Role Phone Aamir Purcell Primary Care Provider [phone] Hoang Gilliam DPM Unavailable [phone] Fe SOMMER DO, W. Don Unavailable [phone] Encounter Details Date Type Department Care Team (Late st Contact Info) Description 04/02/2017 Abstract [facility] [address], 3rd [place] [address] Alaina Doan MA Social History [...] documented as of this encounter Care Teams Crew Leader Gluing Relationship Specialty Start Date End Date Aamir Purcell DO [address] [place] [address] PCP - General Family Medicine 03/28/17 Hoang Gilliam DPM [address] [place] [address] Consulting Physician Podiatry 04/07/17 05/17/21 Reji Miramontes III, DO [address] [place] [address] Consulting Physician Vascular Surgery 04/07/17 05/17/21 documented as of this encounter
--- OUTSIDE RECORDS SUMMARY | 2024-11-16 10:43 | XMS_ITS | Encounter Summary ---
Author Organization [facility] Address [address] [place] [address] Care Team Providers Care Office System Analyst Name Role Phone Aamir Purcell DO Primary Care Provider [phone] Encounter Details Date Type Department Care Team (Late st Contact Info) Description 10/27/2021 Lab Requisition [facility] Lab [address] [place] [phone] Migue Cole MD [address] [address] Social History Tobacco Use Types Packs/Day Years [...] - 48.0 % 10/27/2021 8:48 PM EDT [facility] ([place]) Blood Venous blood specimen / Unknown 10/27/2021 7:21 PM EDT 10/27/2021 7:22 PM EDT us Migue Cole MD LAB BLOOD ORDERABLES Final Result [facility] ([place]) [address] [place] [address] * (ABNORMAL) Hemoglobin (10/27/2021 7:21 PM EDT) Hemoglobin 10.7(L) 12.0 - 15.0 g/dL 10/27/2021 8:49 PM EDT [facility] ([facility]) Blood Venous blood specimen / Unknown 10/27/2021 7:21 PM EDT 10/27/2021 7:22 PM EDT Migue Cole MD LAB BLOOD ORDERABLES Final Result Performing Organization Address City[facility] Co de Phone Number [facility] ([place]) [address] [place], [place] [phone] documented in this encounter Visit Diagnoses Not on filedocumented in this encounter Care Teams Office System Analyst Relationship Specialty Start Date End Date Aamir Purcell DO [address] [place] [address] PCP - General 10/19/21 documented as of this encounter
--- OUTSIDE RECORDS SUMMARY | 2024-11-16 10:43 | XMS_ITS | Encounter Summary ---
Author Organization [facility] Address [address] [place] [address] Care Team Providers Care Priming Machine Operator Name Role Phone Aamir Purcell MD Primary Care Provider [phone] Encounter Details Date Type Department Care Team (Late st Contact Info) Description 06/08/2024 Abstract [facility] 112 [facility] 110 [place] [address] Unallocated, Noms MD [address] [place] [address] Social History Tobacco Use Types Packs/Day Years [...] 12/27/2024 1:45 PM EST Office Visit [facility] Eye [address] [place] [phone] Adilson Johnson, DO [address] [place] [address] documented as of this encounter Visit Diagnoses Not on filedocumented in this encounter Care Teams Priming Machine Operator Relationship Specialty Start Date End Date Aamir Purcell MD PCP - General Family Medicine 08/12/22 documented as of this encounter
--- OUTSIDE RECORDS SUMMARY | 2024-11-16 10:43 | XMS_ITS | Encounter Summary ---
Author Organization [facility] Address [address] [place] [address] Care Team Providers Care Chain Puller Name Role Phone Aamir Purcell MD Primary Care Provider [phone] Encounter Details Date Type Department Care Team (Late st Contact Info) Description 04/09/[address] [facility] 112 [facility] 110 [place] [address] Unallocated, Noms MD Garrick [address] [place] [address] Social History Tobacco Use Types Packs/Day Years [...] Center Eye [address] [place] [address] Adilson Johnson, DO [address] [place] [address] documented as of this encounter Visit Diagnoses Not on filedocumented in this encounter Care Teams Chain Puller Relationship Specialty Start Date End Date Aamir Purcell MD PCP - General Family Medicine 08/12/22 documented as of this encounter
--- OUTSIDE RECORDS SUMMARY | 2024-11-16 10:43 | XMS_ITS | Encounter Summary ---
Author Organization [facility] Address [address] [place] [address] Care Team Providers Care Web Marketing Manager Name Role Phone Aamir Purcell MD Primary Care Provider [phone] Encounter Details Date Type Department Care Team (Late st Contact Info) Description 12/05/2022 Clinisync Result Encounter [facility] External Department Unsolicited Maine Chávez, SAFETY AIDE 112 [facility] 110 [place] [address] Social History Tobacco Use Types Packs/Day Years [...] 12/27/2024 1:45 PM EST Office Visit [facility] [address] [place] [phone] Adilson Johnson, DO [address] [place] [address] documented as of this encounter Procedures Procedure [...] by: SINDY Technologist: TAMMIE us Maine Chávez SAFETY AIDE [facility] Final Result documented in this encounter Visit Diagnoses Not on filedocumented in this encounter Care Teams Web Marketing Manager Relationship Specialty Start Date End Date Aamir Purcell MD PCP - General Family Medicine 08/12/22 documented as of this encounter
--- OUTSIDE RECORDS SUMMARY | 2024-11-16 10:43 | XMS_ITS | Encounter Summary ---
Author Organization [facility] Address [address] [place] [address] Care Team Providers Care Forest Law And Policy Professor Name Role Phone Aamir Purcell MD Primary Care Provider Encounter Details Date Type Department Care Team (Late st Contact Info) Description 04/19/2024 [facility] [address] [place] [phone] Unallocated, Noms MD [address] [place] [address] Social History Tobacco Use Types Packs/Day Years [...] 12/27/2024 1:45 PM EST Office Visit [facility] Eye [address] [place] [phone] Adilson Johnson, DO [address] [place] [address] documented as of this encounter Visit Diagnoses Not on filedocumented in this encounter Care Teams Forest Law And Policy Professor Relationship Specialty Start Date End Date Aamir Purcell MD PCP - General Family Medicine 08/12/22 documented as of this encounter
--- OUTSIDE RECORDS SUMMARY | 2024-11-16 10:43 | XMS_ITS | Encounter Summary ---
Author Organization [facility] Address [address] [place] [address] Care Team Providers Care Assembler Corncob Pipes Name Role Phone Aamir Purcell MD Primary Care Provider [phone] Encounter Details Date Type Department Care Team (Late st Contact Info) Description 08/24/2024 Abstract [facility] 112 [facility] 110 [place] [address] Unallocated, Noms MD Garrick [address] [place] [address] Social History Tobacco Use Types Packs/Day Years [...] 1:45 PM EST Office Visit [facility] Eye [address] [place] [phone] Adilson Johnson, DO [address] [place] [address] documented as of this encounter Visit Diagnoses Not on filedocumented in this encounter Care Teams Assembler Corncob Pipes Relationship Specialty Start Date End Date Aamir Purcell MD PCP - General Family Medicine 08/12/22 documented as of this encounter
--- OUTSIDE RECORDS SUMMARY | 2024-11-16 10:43 | XMS_ITS | Encounter Summary ---
Author Organization [facility] Address [address] [place] [address] Care Team Providers Care Tangled Yarn Spool Straightener Name Role Phone Aamir Purcell DO Primary Care Provider [phone] Hoang Gilliam DPM Unavailable [phone] SOMMER DO, W. 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) Hoang Gilliam DPM [address] [place] [address] Phone: tel: fax: [facility] [address], 3rd floor [place] [address] Phone: tel: fax: Referral ID Status Reason Start Date Expiration Date V isits Requested Visits Authorized [id number] Closed Specialty Services Required/Herminia ent's Best Interest 03/28/2017 03/28/2018 1 1 Encounter Details Date Type Department Care Team (Latest Contact Info) Description 03/28/2017 Transcribe Orders [facility] [address], 3rd [place] [address] Hoang Gilliam, MARK [address] [place] [address] PVD (peripheral vascular disease) (Primary Dx); 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); Atherosclerosis of inaja arteries of left leg with ulceration of [...] Without Evidence Of Necrosis (Hcc) 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) 1 Occurrences starting 03/28/2017 until 03/28/2018 documented as of this encounter Visit Diagnoses Diagnosis PVD (peripheral vascular disease)- Primary Unspecified peripheral vascular disease 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) documented in this encounter Additional Health Concerns Infection Onset Date Last Indicated Resolved Time COVID-19 Suspected 05/18/2021 05/18/2021 2 7:53 PM EDT COVID-19 Suspected 05/29/2021 05/29/2021 2 12:26 PM EDT documented as of this encounter Care Teams Tangled Yarn Spool Straightener Relationship Specialty Start Date End Date Aamir Purcell DO [address] [place] [address] PCP - General Family Medicine 03/28/17 Hoang Gilliam DPM [address] [place] [address] Consulting Physician Podiatry 04/07/17 05/17/21 Reji Miramontes III, DO [address] [place] [address] Consulting Physician Vascular Surgery 04/07/17 05/17/21 documented as of this encounter
--- OUTSIDE RECORDS SUMMARY | 2024-11-16 10:43 | XMS_ITS | Encounter Summary ---
Author Organization [facility] Address [address] [place] [address] Care Team Providers Care Manager Intel Name Role Phone Aamir Purcell MD Primary Care Provider [phone] Encounter Details Date Type Department Care Team (Late st Contact Info) Description 11/02/2024 Abstract [facility] 112 [facility] 110 [place] [address] Unallocated, Noms MD Garrick [address] [place] [address] Social History Tobacco Use Types Packs/Day Years [...] 1:45 PM EST Office Visit [facility] [address] [place] [address] Adilson Johnson, DO [address] [place] [address] documented as of this encounter Visit Diagnoses Not on filedocumented in this encounter Care Teams Manager Intel Relationship Specialty Start Date End Date Aamir Purcell MD PCP - General Family Medicine 08/12/22 documented as of this encounter
--- OUTSIDE RECORDS SUMMARY | 2024-11-16 10:43 | XMS_ITS | Encounter Summary ---
Author Organization [facility] Address [address] [place] [address] Care Team Providers Care Cafe Lead Name Role Phone Aamir Purcell DO Primary Care Provider [phone] Encounter Details Date Type Department Care Team (Late st Contact Info) Description 10/30/2021 Lab Requisition [facility] [address] [place] [phone] Migue Cole MD [address] [address] Social History Tobacco Use Types Packs/Day Years [...] - 145 mmol/L 10/30/2021 9:42 AM EDT [facility] ([facility]) Potassium 4.3 3.5 - 5.1 mmol/L 10/30/2021 9:42 AM EDT [facility] ([facility]) Chloride 101 98 - 107 mmol/L 10/30/2021 9:42 AM EDT [facility] ([facility]) CO2 28 21 - 31 mmol/L 10/30/2021 9:42 AM EDT [facility] ([facility]) BUN 36(H) 7 - 25 mg/dL 10/30/2021 9:42 AM EDT [facility] ([facility]) Creatinine 0.71 0.60 - 1.20 mg/dL 10/30/2021 9:42 AM EDT [facility] ([facility]) Glucose 74 70 - 100 mg/dL 10/30/2021 9:42 AM EDT [facility] ([facility]) Calcium 9.6 8.6 - 10.3 mg/dL 10/30/2021 9:42 AM EDT [facility] ([facility]) Anion Gap 10 <=30 mmol/L 10/30/2021 9:42 AM EDT [facility] ([facility]) eGFR 94.2 >60.0 mL/min/1. 73m*2 10/30/2021 9:42 AM EDT [facility] ([facility]) Comment:[facility] s estimated glomerular filtration rate (eGFR) [...] BUN/Creatinine Ratio 50.70 10/18 9:42 AM EDT [facility] ([facility]) Blood Venous blood specimen / Unknown 10/30/2021 7:00 AM EDT 10/30/2021 3:45 AM EDT us Migue Cole MD LAB BLOOD ORDERABLES Final Result [facility] ([facility]) [address] [place] [address] documented in this encounter Visit Diagnoses Not on filedocumented in this encounter Care Teams Cafe Lead Relationship Specialty Start Date End Date Aamir Purcell DO [address] [place] [address] PCP - General 10/19/21 documented as of this encounter
--- OUTSIDE RECORDS SUMMARY | 2024-11-16 10:43 | XMS_ITS | Encounter Summary ---
Author Organization [facility] Address [address] [place] [address] Care Team Providers Care Diploma Medical Assistant Name Role Phone Aamir Purcell MD Primary Care Provider [phone] Encounter Details Date Type Department Care Team (Late st Contact Info) Description 04/29/2024 Abstract [facility] 112 [facility] 110 [place] [address] Unallocated, Noms MD Garrick [address] [place] [address] Social History Tobacco Use Types Packs/Day Years [...] 12/27/2024 1:45 PM EST Office Visit [facility] [address] [place] [address] Adilson Johnson, DO [address] [place] [address] documented as of this encounter Visit Diagnoses Not on filedocumented in this encounter Care Teams Diploma Medical Assistant Relationship Specialty Start Date End Date Aamir Purcell MD PCP - General Family Medicine 08/12/22 documented as of this encounter
--- OUTSIDE RECORDS SUMMARY | 2024-11-16 10:43 | XMS_ITS | Clinical Summary ---
Author Organization [facility] Address [address] [place] [address] Care Team Providers Care Curriculum Development Specialist Name Role Phone Aaimr Purcell DO Primary Care Provider [phone] Social History Tobacco Use Types Packs/Day Years Used Date Smoking Tobacco: Never Assessed [place] Safety & Environment Answer Date Rec orded [...] Payer (Ef fective 2004-Present) Name:Cleo Georges Member ID:[id number] Relation to Subscriber:Self Name:Cleo Georges Subscriber ID:[id number] Payer ID:[id number] Group ID:Not on file Type:Medicare Address: [facility] [id number] Care Teams Curriculum Development Specialist Relationship Specialty Start Date End Date Aamir Purcell DO [address] [place] [address] PCP - General 10/19/21
--- OUTSIDE RECORDS SUMMARY | 2024-11-16 10:43 | XMS_ITS | Encounter Summary ---
Author Organization [facility] Address [address] [place] [address] Care Team Providers Care Solar Installer Technician Name Role Phone Aamir Purcell MD Primary Care Provider [phone] Encounter Details Date Type Department Care Team (Late st Contact Info) Description 05/10/2024 Abstract [facility] 112 [facility] 110 [place] [address] Unallocated, Noms MD Garrick [address] [place] [address] Social History Tobacco Use Types Packs/Day Years [...] 12/27/2024 1:45 PM EST Office Visit [facility] [address] [place] [address] Adilson Johnson, DO [address] [place] [address] documented as of this encounter Visit Diagnoses Not on filedocumented in this encounter Care Teams Solar Installer Technician Relationship Specialty Start Date End Date Aamir Purcell MD PCP - General Family Medicine 08/12/22 documented as of this encounter
--- OUTSIDE RECORDS SUMMARY | 2024-11-16 10:43 | XMS_ITS | Clinical Summary ---
Author Organization [facility] Address [address] [place] [address] Care Team Providers Care Sand Screener Operator Name Role Phone Aamir Purcell MD Primary Care Provider [phone] Allergies Active Allergy Reactions Criticality Noted Date Comments Cephalexin Hives,Itching,Unknow n,Rash,Swelling High 12/02/2011 burning Moxifloxacin Itching,Unknown,Rash ,Swelling High 12/02/2011 Abdominal pain Peg 4627-Cvf-Lpjwm-Nacl-Mello ulf High 10/28/2016 Tapentadol Unknown High 02/04/2014 [...] at the same time Active HYDROcodone-felicita taminophen (Ewing) 5-325 MG tablet Take 1 tablet by [...] Encounters Date Type Department Care Team Description 11/02/2024 Abstract [facility] 112 [facility] [address] [place] [address] Unallocated, Pedro Mccauley MD 09/27/2024 1:15 PM EDT Office Visit [facility] [address] [place] [address] Adilson Johnson, Primary open angle glaucoma (POAG) of both eyes, moderate stage (Primary Dx); 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 mellitus (HCC); Left posterior capsular opacification; Dry eyes 09/27/2024 Bamboo flowsheet [facility] [address] [place] [address] Adilson Johnson, 09/27/2024 Travel 09/07/2024 Results Follow-Up [facility] [address] [place] [address] Ramona Campuzano PA Aerobic culture, RESULT 08/27/2024 10:30 AM EDT Office Visit [facility] [address] [place] [address] Ramona Campuzano PA Other atopic dermatitis (Primary Dx); Traumatic ulcer of left foot, unspecified ulcer stage (HCC); Impetigo 08/27/2024 Orders Only [facility]S External Department Unsolicited Ramona Campuzano PA 08/27/2024 Bamboo flowsheet [facility] [address] [place] [address] Ramona Campuzano PA 08/27/2024 Travel 08/24/2024 Abstract [facility] 112 [facility] 110 [place] [address] Unallocated, Pedro Mccauley MD 08/16/2024 Abstract [facility] 112 [facility] 110 [place] [address] Aamir Purcell MD from Last 3 Months Social History [...] 12/27/2024 1:45 PM EST Office Visit [facility] [address] [place] [address] Adilson Johnson, [address] [place] [address] Procedures Procedure Name Priority Date/Time Associated Diagnosis Comments TRINIDAD VISUAL FIELD - OU - BOTH EYES Routine 09/27/2024 1:41 PM EDT Primary open angle glaucoma (POAG) of both eyes, moderate stage RESULT Routine 08/27/2024 12:00 AM EDT CULTURE, AEROBIC BACTERIA Routine 08/27/2024 12:00 AM EDT from Last 3 Months Results * [...] may be warranted if clinically indicated. (CLSI [id number]) Light growth RESULT 2 Staphylococcus aureus(A) [facility] [...] - 09/06/2024 11:07 AM EDT Performed at: - [facility] [id number] Solution Specialist: Angel Jacobs PhD, Phone: [phone] Ramona CESPEDES LAB BLOOD ORDERABLES Final Res ult [facility] * (ABNORMAL) Aerobic culture (08/27/2024 12:00 AM EDT) [facility] CULTURE, AEROBIC BACTERIA Final report(A) [facility] 08/27/2024 08/27/2024 Narrative [facility] - 09/06/2024 11:07 AM EDT Performed at: - [facility] [address] [id number] Solution Specialist: Angel Jacobs PhD, Phone: [phone] Ram[facility] CESPEDES LAB MICROBIOLOGY - GENERAL ORD ERABLES Final Result [facility] from Last 3 Months Insurance MEDICARE [facility] MEDICAID [place] Care Teams Sand Screener Operator Relationship Specialty Start Date End Date Aamir Purcell MD PCP - General Family Medicine 08/12/22
--- OUTSIDE RECORDS SUMMARY | 2024-11-16 10:43 | XMS_ITS | Encounter Summary ---
Author Organization [facility] Address [address] [place] [address] Care Team Providers Care Neon Light Installer Name Role Phone Aamir Purcell MD Primary Care Provider [phone] Encounter Details Date Type Department Care Team (Late st Contact Info) Description 03/31/2023 Orders Only [facility] 112 [facility] 110 [place] [address] A, Unknown Practice [address] [place] [address] Social History Tobacco Use Types Packs/Day Years [...] 12/27/2024 1:45 PM EST Office Visit [facility] [address] [place] [address] Adilson Johnson, DO [address] [place] [address] documented as of this encounter Procedures Procedure Name Priority Date/Time Associated Diagnosis Comments SCANNED LABS Routine 03/29/2023 1:07 PM EST documented in this encounter Results * SCANNED LABS (03/29/2023 1:07 PM EST) us Unknown Practice A LAB CHG PERFORMABLES Final Re sult documented in this encounter Visit Diagnoses Not on filedocumented in this encounter Care Teams Neon Light Installer Relationship Specialty Start Date End Date Aamir Purcell MD PCP - General Family Medicine 08/12/22 documented as of this encounter
--- OUTSIDE RECORDS SUMMARY | 2024-11-16 10:44 | XMS_ITS | Clinical Summary ---
Author Organization [facility] Address [address] [place] [address] Care Team Providers Care Table Games Dealer Name Role Phone Aamir Purcell DO Primary Care Provider [phone] Allergies Active Allergy Reactions Criticality Noted Date [...] series) 2038 Medical Devices Implanted Type Area Portfolio Mgr Device Identifier Shelf Expiration Date Model / Serial / Lot Stent-07/27/2012 Implanted:Qty: 1 on 07/27/2012 Stent Right: Eye [employer] [id number] ISTENT / [id number] / [id number] Description:Non-clinical son ting has demonstrated that the iStent Trabecular Micro-Bypass Stent (Models [id number] and [id number]) is MR Conditional. A patient with this [...] above, the iStent Trabecular Micro-Bypass Stent (Models [id number] and [id number]) is not expected to produce a clinically significant temperature rise after 15 minutes of continuous scanning. In non-clinical testing, the image artifact caused by the device extends less than 15 mm from the device when imaged with a gradient echo pulse sequence and a 3.0 T MRI system Insurance MEDICARE [place] [address] [facility] Advance Directives For more information, please contact: [phone] Documents on File Type Date Recorded Patient Semiconductor Wafers Marker Expl anation Power of Water Main Inspector 05/28/2021 12:09 PM Power of Water Main Inspector 05/28/2021 12:01 PM * Full Code - Unverified (Latest Code Status on File) Date Activated Date Inactivated Comments 05/18/2021 10:06 PM 05/29/2021 7:56 PM Care Teams Table Games Dealer Relationship Specialty Start Date End Date Aamir Purcell DO [address] [place] [address] PCP - General Family Medicine 03/28/17
--- OUTSIDE RECORDS SUMMARY | 2024-11-16 10:44 | XMS_ITS | Clinical Summary ---
Author Organization [facility] Address [address] [facility], [address] [place] [address] Care Team Providers Care Hand Gluer And Slicer Name Role Phone Migue Cole MD Primary Care Provider [phone] Allergies Active Allergy Reactions Criticality Noted Date Comments Moxifloxacin Hydrochloride Rash Low 12/02/2011 Cephalexin Rash Low 12/02/2011 Moxifloxacin Rash High 10/28/2016 Peg 0423-Utr-Pmnsz-Nacl-Nasu lf High 10/28/2016 Tapentadol Other (See Comments) [...] - Risk 60-74 years 1-dose series) 2023 Flu vaccine (#1) 09/17/2024 10/07/2019, 11/04/2013 COVID-19 Vaccine ( season) 2024 Pneumococcal 0-49 years Vaccine Discontinued 10/07/2019, 07/29/2012 [...] this topic Medical Devices Implanted Type Area Production Line Operator Device Identifier Shelf Expiration Date Model / Serial / Lot System Spnl Seal 3ml Exact Duraseal - [id number] Implanted:Qty: 1 on 07/06/2021 by Ban Cevallos DO at [facility] N/A: Spine Cervical INTE[employer]RA AnturisCIGood People BRETT-WD 09/27/2022 [id number] / / Kit Bne Grft Xsm 1.4cc Rhbmp-2 Absrb Cllgn Spng Infuse - [id number] Implanted:Qty: 1 on 09/25/2021 by Ban Cevallos DO at [facility] N/A: Spine Cervical MEDTRONIC SPINALGRAFT TECH-WD 02/16/2023 [id number] / [id number] / [id number] Graft Cellr Bne Matrx Influx Sparc 5cc - [id number] Implanted:Qty: 1 on 09/25/2021 by Ban Cevallos DO at [facility] N/A: Spine Cervical [employer] INC-WD 05/04/2023 [id number] / [id number] / [id number] Graft Cellr Bne Matrx Influx Sparc 5c - [id number] Implanted:Qty: 1 on 09/25/2021 by Ban Cevallos DO at [facility] N/A: Spine Cervical [employer]-WD 05/04/2023 [id number] / [id number] / [id number] Screw Spnl L34mm [id number] Occipitocervical Up Thor Multiaxial - [id number] Implanted:Qty: 2 on 09/25/2021 by Ban Cevallos DO at [facility] N/A: Spine Cervical [employer]TR[employer] SOFAMOR DANEK-WD [id number] / / Bishnu Spnl L25mm Dia3.5mm Occipitocervical Up Thor Precut - [id number] Implanted:Qty: 2 on 09/25/2021 by Ban Cevallos DO at [facility] N/A: Spine Cervical [employer] SOFAMOR DANEK-WD [id number] / / Set Screw Spinal M6 - [id number] Implanted:Qty: 4 on 09/25/2021 by Ban Cevallos DO at [facility] N/A: Spine Cervical MED[employer] SOFAMOR DANEK-WD [id number] / / Procedures Procedure Name Priority Date/Time [...] body mass. Additional eGFR calculator available at: [email or web address] [email or web address] BLOOD SPECIMEN / Unknown 09/27/2021 2:38 AM EDT 09/27/2021 2:42 AM EDT Darleen Carmona MD CHEMISTRY ORDERABLES Edited Resu lt - Final Performing Organization Address [facility] Co de Phone Number [facility] [address] [place] [address] * Hemoglobin A1C (09/09/2021 7:34 AM EDT) Hemoglobin A1C 5.1 4.0 - 6.0 % 09/09/2021 7:34 AM EDT [facility] Estimated Avg Glucose 100 mg/dL 09/09/2021 7:34 AM EDT [facility] Comment: The ADA and AACC recommend providing the estimated average glucose result to permit better patient understanding of their HBA1c result. 09/09/2021 7:34 AM EDT 09/09/2021 8:11 AM EDT Chris Lassiter MD CHEMISTRY ORDERABLES Final Resul t Performing Organization Address [facility] Co de Phone Number [facility] [address] [place] [address] * (ABNORMAL) OCCULT BLOOD SCREEN (07/24/2021 2:30 PM EDT) Pathologist [facility] Occult Blood, Stool #1 POSITIVE( A) NEGATIVE 07/24/2021 2:30 PM EDT [facility] Date, Stool #1 [id number] 07/24/2021 2:30 PM EDT [facility] Time, Stool #1 143 07/24/2021 2:30 PM EDT [facility] STOOL SPECIMEN / Unknown 07/24/2021 2:30 PM EDT 07/25/2021 12:13 AM EDT Xin Grove MD BODY FLUIDS AND STOOLS ORDERABLE S Final Result Performing Organization Address [facility] Co de Phone Number [facility] [address] [place] [address] * LIPID PANEL (06/28/2021 9:38 PM EDT) Pathologist [facility] Cholesterol 155 <200 mg/dL 06/28/2021 9:38 PM EDT [facility] Comment: Cholesterol Guidelines: <200 Desirable 200-240 Borderline >240 Undesirable HDL 71 >40 mg/dL 06/28/2021 9:38 PM EDT [facility] Comment: HDL Guidelines: <40 Undesirable 40-59 Borderline >59 Desirable LDL Cholesterol 63 0 - 130 mg/dL 06/28/2021 9:38 PM EDT [facility] Comment: LDL Guidelines: <100 Desirable 100-129 Near to/above Desirable 130-159 Borderline >159 Undesirable Direct (measured) LDL and calculated LDL are not interchangeable tests. Chol/HDL Ratio 2.2 <5 06/28/2021 9:38 PM EDT [facility] Comment: Triglycerides 105 <150 mg/dL 06/28/2021 9:38 PM EDT [facility] Comment: Triglyceride Guidelines: <150 Desirable 150-199 Borderline 200-499 High >499 Very high Based on AHA Guidelines for fasting triglyceride, November 2011. BLOOD SPECIMEN / Unknown 06/28/2021 9:38 PM EDT 06/28/2021 9:38 PM EDT Jenifer Jewell MD CHEMISTRY ORDERABLES Final Result [facility] [address] [place] [address] * Microalbumin, Ur (06/25/2013 7:05 AM EDT) Albumin Urine 12 <21 mg/L 06/25/2013 9:11 PM EDT [facility] Creatinine, Ur 166.1 39.0 - 259.0 mg/dL 06/25/2013 9:11 PM EDT [facility] Comment: The reference range and other method performance specifications have not been established for this body fluid. The test result must be integrated into the clinical context for interpretation. Microalb/Housekeeper/Laundry Assistant. Ratio 7 mcg/mg creat 06/25/2013 9:11 PM EDT [facility] Urine Microalbumin Interp 06/25/2013 9:11 PM EDT [facility] Comment: REFERENCE RANGE NORMAL = 0 - 13 mcg/mg creat BORDERLINE = 14 - 30 mcg/mg creat ABNORMAL = >30 mcg/mg creat Performed at [facility] [address] [place] [address] ([phone] 06/25/2013 7:05 AM EDT 06/25/2013 7:06 AM EDT us Tobias Cui MD URINE ORDERABLES Edited Resu lt - Final [facility] [address] [place] [address], [facility] [phone] [facility] from Last 3 Months or Most Recently Relevant to Health Maintenance Insurance MEDICARE [facility] MEDICAID [place] MEDICARE MEDICARE Member Subscriber Plan / Payer (Ef fective 2002-Present) Name:Cleo Georges Relation to Subscriber:Self Name:Cleo Georges Payer ID:Not on file Group ID:Not on file Type:Not on file Address: [address] Advance Directives Documents on File Type Date Recorded Patient Armored Cable Machine Operator Expl anation ACP-Advance Directive 08/13/2021 4:27 PM [...] Supplemental (Ot her) Decision Maker Care Teams Hand Gluer And Slicer Relationship Specialty Start Date End Date Migue Cole MD [address] [place] [address] PCP - General Internal Medicine 08/14/21
== END 2024-11-16 10:42 | disposition home or self-care (01) ==
LOC: WC 10:41
PROVIDERS: PCP Family Medicine; Visit Provider Physician Assistant
DX: E11.621 Type 2 diabetes mellitus with foot ulcer (principal); L97.521 Non-pressure chronic ulcer of other part of left foot limited to breakdown of skin; L97.422 Non-pressure chronic 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
CPT/HCPCS: 11043

== ENCOUNTER 2024-11-30 13:40 | Outpatient (OUT) | payer MEDICARE, OTHER, MEDICAID, SELFPAY ==
--- OUTSIDE RECORDS SUMMARY | 2024-04-21 11:00 | XMS_ITS ---
Author Organization [facility] Address [address] [place] [address] [place] [address] Care Team Providers Care Package Worker Name Role Phone José Miguel Crouch;Jesse richey Primary Care Provider Un available Jose Field Unavailable [phone] Encounters Encounter Location Date Provider Diagnosis [address] [address] 04/21/2024 Jose Field Plan Of Treatment No Information Progress Notes * Claudia FERNANDEZOB:1965 ([age] yo F)Acc No.[id number]:04/21/2024 Patient: Cleo SAL Provider: Sallie Field DPM :1965 A ge:59 Y S ex:Female Date:04/21/2024 Address:[address] [place], [place] [address] Pcp:Willa Mayen;kaiden Subjective: * Chief Complaints: * * Medical History: Objective: * Vitals: Assessment: Plan: * Treatment: * Images: * Electronic signature of Yoncalla in MARK Field on 11/30/2024 at 01:48 PM EDT Sign off status: Pending * Provider: Sallie Field DPM Date: 0 04/21/2024 Generated for Emanuel sanon/Amrik/Margo on: 01:48 PM EDT
--- OUTSIDE RECORDS SUMMARY | 2024-06-09 09:45 | XMS_ITS ---
Author Organization [facility] Address [address] [place] [address] [place] [address] Care Team Providers Care Boom Pump Operator Name Role Phone José Miguel Crouch;Jesse richey Primary Care Provider Un available Jose Field Unavailable [phone] REASON FOR VISIT L CALLUS only; not toenails Encounters Encounter Location Date Provider Diagnosis [address] [address] 06/09/2024 Jose Field Plan Of Treatment No Information Progress Notes * Claudia FERNANDEZOB:1965 ([age] yo F)Acc No.[id number]:06/09/2024 Patient: Cleo SAL Provider: Sallie Field DPM :1965 A ge:59 Y S ex:Female Date:06/09/2024 Address:[address] [place], [place] [id number] Pcp:Willa Mayen;kaiden Subjective: * Chief Complaints: * 1 . L CALLUS only; not toenails. * Medical History: Objective: * Vitals: Assessment: Plan: * Treatment: * Images: * Electronic signature of [place] in MARK Field on 11/30/2024 at 01:47 PM EDT Sign off status: Pending * Provider: Sallie Field DPM Date: 0 06/09/2024 Generated for Emanuel sanon/Amrik/eTransmitting on: 01:47 PM EDT
--- OUTSIDE RECORDS SUMMARY | 2024-07-21 09:45 | XMS_ITS ---
Author Organization [facility] Address [address] [place] [address] [place] [address] Care Team Providers Care Winder Helper Name Role Phone José Miguel Crouch;Jesse richey Primary Care Provider Un available Jose Field Unavailable [phone] Encounters Encounter Location Date Provider Diagnosis [address] [address] 07/21/2024 Jose Field Plan Of Treatment No Information Progress Notes * Claudia FERNANDEZOB:1965 ([age] yo F)Acc No.[id number]:07/21/2024 Patient: Cleo SAL Provider: Sallie Field DPM :1965 A ge:59 Y S ex:Female Date:07/21/2024 Address:[address] [place], [place] [id number] Pcp:Willa Mayen;kaiden Subjective: * Chief Complaints: * * Medical History: Objective: * Vitals: Assessment: Plan: * Treatment: * Images: * Electronic signature of Ulysses in MARK Field on 11/30/2024 at 01:46 PM EDT Sign off status: Pending * Provider: Sallie Field DPM Date: 0 07/21/2024 Generated for Emanuel sanon/Amrik/Margo on: 01:46 PM EDT
--- OUTSIDE RECORDS SUMMARY | 2024-10-20 10:00 | XMS_ITS ---
Author Organization [facility] Address [address] [place] [address] [place] [address] Care Team Providers Care Line Installer Trolley Name Role Phone José Miguel Crouch;Jesse richey Primary Care Provider Un available Jose Field Unavailable [phone] Encounters Encounter Location Date Provider Diagnosis [address] [address] 10/20/2024 Jose Field Plan Of Treatment No Information Progress Notes * Claudia FERNANDEZOB:1965 ([age] yo F)Acc No.[id number]:10/20/2024 Patient: Cleo SAL Provider: Sallie Field DPM :1965 A ge:59 Y S ex:Female Date:10/20/2024 Address:[address] [place], [place] [id number] Pcp:Willa Mayen;kaiden Subjective: * Chief Complaints: * * Medical History: Objective: * Vitals: Assessment: Plan: * Treatment: * Images: * Electronic signature of [place] in MARK Field on 11/30/2024 at 01:48 PM EDT Sign off status: Pending * Provider: Sallie Field DPM Date: 0 10/20/2024 Generated for Emanuel sanon/Amrik/Margo on: 01:48 PM EDT
--- OUTSIDE RECORDS SUMMARY | 2024-11-30 13:46 | XMS_ITS | Encounter Summary ---
Author Organization [facility] Address [address] [place] [address] Care Team Providers Care Drapery Estimator Name Role Phone Aamir Purcell MD Primary Care Provider [phone] Encounter Details Date Type Department Care Team (Late st Contact Info) Description 12/05/2022 Clinisync Result Encounter [facility] External Department Unsolicited Maine Chávez, TECHNICAL HEALTHCARE CONSULTANT 112 [facility] 110 [place] [address] Social History Tobacco Use Types Packs/Day Years [...] 12/27/2024 1:45 PM EST Office Visit [facility] [address] [place] [address] Adilson Johnson, DO [address] [place] [address] documented as of this encounter Procedures Procedure [...] by: SINDY Technologist: TAMMIE us Maine Chávez TECHNICAL HEALTHCARE CONSULTANT [facility] Final Result documented in this encounter Visit Diagnoses Not on filedocumented in this encounter Care Teams Drapery Estimator Relationship Specialty Start Date End Date Aamir Purcell MD PCP - General Family Medicine 08/12/22 documented as of this encounter
--- OUTSIDE RECORDS SUMMARY | 2024-11-30 13:46 | XMS_ITS | Encounter Summary ---
Author Organization [facility] Address [address] [place] [address] Care Team Providers Care Corporate Development Officer Name Role Phone Aamir Purcell MD Primary Care Provider [phone] Encounter Details Date Type Department Care Team (Late st Contact Info) Description 04/19/2024 Abstract [facility] [address] [place] [address] Unallocated, Noms MD [address] [place] [address] Social History Tobacco Use Types Packs/Day Years [...] [facility] [address] [place] [address] Adilson Johnson, DO [address] [place] [address] documented as of this encounter Visit Diagnoses Not on filedocumented in this encounter Care Teams Corporate Development Officer Relationship Specialty Start Date End Date Aamir Purcell MD PCP - General Family Medicine 08/12/22 documented as of this encounter
--- OUTSIDE RECORDS SUMMARY | 2024-11-30 13:46 | XMS_ITS | Encounter Summary ---
Author Organization [facility] Address [address] [place] [address] Care Team Providers Care Inspector Balance Bridge Name Role Phone Aamir Purcell MD Primary Care Provider [phone] Encounter Details Date Type Department Care Team (Late st Contact Info) Description 11/25/2022 Orders Only [facility] 112 [facility] 110 [place] [address] A, Unknown Practice [address] [place] [address] Social History Tobacco Use Types Packs/Day Years [...] Hospital [facility] [address] [place] [address] Adilson Johnson, DO [address] [place] [address] documented as of this encounter Procedures Procedure Name Priority Date/Time Associated Diagnosis Comments SCANNED LABS Routine 11/23/2022 9:24 AM EDT documented in this encounter Results * SCANNED LABS (11/23/2022 9:24 AM EDT) us Unknown Practice A LAB CHG PERFORMABLES Final Re sult documented in this encounter Visit Diagnoses Not on filedocumented in this encounter Care Teams Inspector Balance Bridge Relationship Specialty Start Date End Date Aamir Purcell MD PCP - General Family Medicine 08/12/22 documented as of this encounter
--- OUTSIDE RECORDS SUMMARY | 2024-11-30 13:46 | XMS_ITS | Encounter Summary ---
Author Organization [facility] Address [address] [place] [address] Care Team Providers Care Pediatric Dental Assistant Name Role Phone Aamir Purcell MD Primary Care Provider Encounter Details Date Type Department Care Team (Late st Contact Info) Description 04/19/2024 Abstract [facility] [address] [place] [address] Unallocated, Noms MD [address] [place] [address] Social History Tobacco Use Types Packs/Day Years [...] 12/27/2024 1:45 PM EST Office Visit [facility] Eye [address] [place] [address] Adilson Johnson, DO [address] [place] [address] documented as of this encounter Visit Diagnoses Not on filedocumented in this encounter Care Teams Pediatric Dental Assistant Relationship Specialty Start Date End Date Aamir Purcell MD PCP - General Family Medicine 08/12/22 documented as of this encounter
--- OUTSIDE RECORDS SUMMARY | 2024-11-30 13:46 | XMS_ITS | Encounter Summary ---
Author Organization [facility] Address [address] [place] [address] Care Team Providers Care Portable Power Tool Repairer Name Role Phone Aamir Purcell MD Primary Care Provider [phone] Encounter Details Date Type Department Care Team (Late st Contact Info) Description 04/29/2024 Abstract [facility] 112 [facility] 110 [place] [address] Unallocated, Noms MD Garrick [address] [place] [address] Social History Tobacco Use Types Packs/Day Years [...] 12/27/2024 1:45 PM EST Office Visit [facility] Eye [address] [place] [address] Adilson Johnson, DO [address] [place] [address] documented as of this encounter Visit Diagnoses Not on filedocumented in this encounter Care Teams Portable Power Tool Repairer Relationship Specialty Start Date End Date Aamir Purcell MD PCP - General Family Medicine 08/12/22 documented as of this encounter
--- OUTSIDE RECORDS SUMMARY | 2024-11-30 13:46 | XMS_ITS | Encounter Summary ---
Author Organization [facility] Address [address] [place] [address] Care Team Providers Care Pressing Machine Tender Name Role Phone Aamir Purcell DO Primary Care Provider [phone] Adilson Hernandez MD Unavailable [phone] Kartik Mejia MD Unavailable [phone] Tisha Arriaga MD Unavailable Luis Miguel Kaur MD Unavailable [phone] Chris Zavala OD Unavailable Unavailable Reason for Visit * Reason Onset Date Comments Referral 04/16/2021 Encounter Details Date Type Department Care Team (Late st Contact Info) Description 04/16/2021 Telephone Neurology [facility] [place] [address] [facility] [place] [place] [address] Gerald Richardson Referral Social History [...] States that she can be reached at [phone]. JDS * Telephone Encounter - Nurys Crow RN - 04/18/2021 10:42 AM EST Called pt, left voicemail to call the office. * Telephone Encounter - Gerald Richardson - 04/16/2021 9:04 AM EST Pt is calling to ask if Dr Mtz can place a referral for her to be seen in Hematology. # [phone] ABHINAV documented in this encounter Plan of Treatment Not on file documented as of this encounter Visit Diagnoses Not on filedocumented in this encounter Care Teams Pressing Machine Tender Relationship Specialty Start Date End Date Aamir Purcell DO PCP - General Family Medicine 03/06/17 Adilson Hernandez MD [address] [place] [address] Ophthalmology 07/18/17 Kartik Mejia MD [address] [place] [phone] Pain Medicine 12/25/17 Tisha Arriaga MD [address] [place] [address] Neurologist Neurology 07/18/17 Luis Miguel Kaur MD [address] [place] [address] Electronics Technology Department Chair Endocrinology, Diabetes & Metabolism 03/06/17 Chris Zavala, ROGELIO [address] [place] [address] Optometry 03/15/20 documented as of this encounter
--- OUTSIDE RECORDS SUMMARY | 2024-11-30 13:46 | XMS_ITS | Encounter Summary ---
Author Organization [facility] Address [address] [place] [address] Care Team Providers Care Bottle Washer Machine Name Role Phone Aamir Purcell MD Primary Care Provider [phone] Encounter Details Date Type Department Care Team (Late st Contact Info) Description 06/28/2024 Abstract [facility] [address] [facility] 110 [place] [address] Unallocated, Noms MD [address] [place] [address] Social History Tobacco Use Types Packs/Day Years [...] 1:45 PM EST Office Visit [facility] [address] [place] [address] Adilson Johnson, DO [address] [place] [address] documented as of this encounter Visit Diagnoses Not on filedocumented in this encounter Care Teams Bottle Washer Machine Relationship Specialty Start Date End Date Aamir Purcell MD PCP - General Family Medicine 08/12/22 documented as of this encounter
--- OUTSIDE RECORDS SUMMARY | 2024-11-30 13:46 | XMS_ITS | Encounter Summary ---
Author Organization [facility] Address [address] [place] [address] Care Team Providers Care Circuit Board Assembler Name Role Phone Aamir Purcell MD Primary Care Provider [phone] Encounter Details Date Type Department Care Team (Late st Contact Info) Description 12/13/2022 Clinisync Result Encounter [facility] External Department Unsolicited Maine Chávez, QUILTING SUPERVISOR 112 [facility] 110 [place] [address] Social History Tobacco Use Types Packs/Day Years [...] 12/27/2024 1:45 PM EST Office Visit [facility] [address] [place] [address] Adilson Johnson, DO [address] [place] [address] documented as of this encounter Procedures Procedure [...] by: SINDY Technologist: ANGÉLICA us Maine Chávez QUILTING SUPERVISOR [facility] Final Result documented in this encounter Visit Diagnoses Not on filedocumented in this encounter Care Teams Circuit Board Assembler Relationship Specialty Start Date End Date Aamir Purcell MD PCP - General Family Medicine 08/12/22 documented as of this encounter
--- OUTSIDE RECORDS SUMMARY | 2024-11-30 13:46 | XMS_ITS | Encounter Summary ---
Author Organization [facility] Address [address] [place] [address] Care Team Providers Care Butadiene Converter Helper Name Role Phone Aamir Purcell DO Primary Care Provider [phone] Hoang Gilliam DPM Unavailable [phone] Fe SOMMER DO, W. 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 foot (HCC) Hoang Gilliam DPM [address] [place] [address] Phone: tel: fax: [facility] [address], 3rd [place] [address] Phone: tel: fax: Referral ID Status Reason Start Date Expiration Date V isits Requested Visits Authorized [id number] Closed Specialty Services Required/Herminia ent's Best Interest 03/28/2017 03/28/2018 1 1 Encounter Details Date Type Department Care Team (Latest Contact Info) Description 03/28/2017 Transcribe Orders [facility] [address] 3rd [place] [address] Hoang Gilliam, MARK [address] [place] [address] PVD (peripheral vascular disease) (Primary Dx); 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); Atherosclerosis of [place] arteries of left leg with ulceration of [...] Without Evidence Of Necrosis (Hcc) Atherosclerosis of [place] arteries of left leg with ulceration of other part of foot (HCC) 1 Occurrences starting 03/28/2017 until 03/28/2018 documented as of this encounter Visit Diagnoses Diagnosis PVD (peripheral vascular disease)- Primary Unspecified peripheral vascular disease 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 of [place] arteries of left leg with ulceration of other part of foot (HCC) documented in this encounter Additional Health Concerns Infection Onset Date Last Indicated Resolved Time COVID-19 Suspected 05/18/2021 05/18/2021 2 7:53 PM EDT COVID-19 Suspected 05/29/2021 05/29/2021 2 12:26 PM EDT documented as of this encounter Care Teams Butadiene Converter Helper Relationship Specialty Start Date End Date Aamir Purcell DO [address] [place] [address] PCP - General Family Medicine 03/28/17 Hoang Gilliam DPM [address] [place] [address] Consulting Physician Podiatry 04/07/17 05/17/21 Reji Miramontes III, DO [address] [place] [address] Consulting Physician Vascular Surgery 04/07/17 05/17/21 documented as of this encounter
--- OUTSIDE RECORDS SUMMARY | 2024-11-30 13:46 | XMS_ITS | Encounter Summary ---
Author Organization [facility] Address [address] [place] [address] Care Team Providers Care Drafter Electromechanical Name Role Phone Aamir Purcell MD Primary Care Provider [phone] Encounter Details Date Type Department Care Team (Late st Contact Info) Description 05/03/2024 Abstract [facility] 112 [facility] 110 [place] [address] Unallocated, Noms MD [address] [place] [address] Social History Tobacco Use Types Packs/Day Years [...] 12/27/2024 1:45 PM EST Office Visit [facility] [address] [place] [address] Adilson Johnson, DO [address] [place] [address] documented as of this encounter Visit Diagnoses Not on filedocumented in this encounter Care Teams Drafter Electromechanical Relationship Specialty Start Date End Date Aamir Purcell MD PCP - General Family Medicine 08/12/22 documented as of this encounter
--- OUTSIDE RECORDS SUMMARY | 2024-11-30 13:46 | XMS_ITS | Encounter Summary ---
Author Organization [facility] Address [address] [place] [address] Care Team Providers Care Biomathematician Name Role Phone Aamir Purcell MD Primary Care Provider Encounter Details Date Type Department Care Team (Late st Contact Info) Description 06/08/2024 Abstract [facility] [address] [facility] 110 [place] [address] Unallocated, Noms MD Garrick [address] [place] [address] Social History Tobacco Use Types Packs/Day Years [...] 1:45 PM EST Office Visit [facility] [address] [place] [address] Adilson Johnson, DO [address] [place] [address] documented as of this encounter Visit Diagnoses Not on filedocumented in this encounter Care Teams Biomathematician Relationship Specialty Start Date End Date aAmir Purcell MD PCP - General Family Medicine 08/12/22 documented as of this encounter
--- OUTSIDE RECORDS SUMMARY | 2024-11-30 13:46 | XMS_ITS | Encounter Summary ---
Author Organization [facility] enter Address [address] [place] [address] Care Team Providers Care Hourly Caregiver Name Role Phone Aamir Purcell DO Primary Care Provider [phone] Adilson Heranndez MD Unavailable [phone] Kartik Mejia MD Unavailable [phone] Tisha Arriaga MD Unavailable Luis Miguel Kaur MD Unavailable [phone] Chris Zavala OD Unavailable Unavailable Encounter Details Date Type Department Care Team (Late st Contact Info) Description 10/11/2019 Telephone Infusion [facility]patient Care [address] [place] [address] Nahomy Fenton, VIRGIE Social History [...] Comorbidity, call the COVID-19 Call Center at [phone] withAttending approval ? Comorbidity: Age >60: No [...] on filedocumented in this encounter Care Teams Hourly Caregiver Relationship Specialty Start Date End Date Aamir Purcell DO PCP - General Family Medicine 03/06/17 Adilson Hernandez MD [address] [place] [address] Ophthalmology 07/18/17 Kartik Mejia MD [address] [place] [address] Pain Medicine 12/25/17 Tisha Arriaga MD [address] [place] [id number] Neurologist Neurology 07/18/17 Luis Miguel Kaur MD [address] [place] [address] Telecommunication Operator Endocrinology, Diabetes & Metabolism 03/06/17 Chris Zavala, OD [address] [place] [address] Optometry 03/15/20 documented as of this encounter
--- OUTSIDE RECORDS SUMMARY | 2024-11-30 13:46 | XMS_ITS | Encounter Summary ---
Author Organization [facility] Address [address] [place] [address] Care Team Providers Care Gang Punch Operator Name Role Phone Aamir Purcell MD Primary Care Provider [phone] Encounter Details Date Type Department Care Team (Late st Contact Info) Description 05/10/2024 Abstract [facility] 112 [facility] 110 [place] [address] Unallocated, Noms MD Garrick [address] [place] [address] Social History Tobacco Use Types Packs/Day Years [...] 12/27/2024 1:45 PM EST Office Visit [facility] [address] [place] [address] Adilson Johnson, DO [address] [place] [address] documented as of this encounter Visit Diagnoses Not on filedocumented in this encounter Care Teams Gang Punch Operator Relationship Specialty Start Date End Date Aamir Purcell MD PCP - General Family Medicine 08/12/22 documented as of this encounter
--- OUTSIDE RECORDS SUMMARY | 2024-11-30 13:46 | XMS_ITS | Encounter Summary ---
Author Organization [facility] Address [address] [place] [address] Care Team Providers Care Director Of District Office Name Role Phone Aamir Purcell MD Primary Care Provider Encounter Details Date Type Department Care Team (Late st Contact Info) Description 03/11/2024 Abstract [facility] 112 [facility] 110 [place] [address] Unallocated, Noms MD Garrick [address] [place] [address] Social History Tobacco Use Types Packs/Day Years [...] Center Eye [address] [place] [address] Adilson Johnson, DO [address] [place] [address] documented as of this encounter Visit Diagnoses Not on filedocumented in this encounter Care Teams Director Of District Office Relationship Specialty Start Date End Date Aamir Purcell MD PCP - General Family Medicine 08/12/22 documented as of this encounter
--- OUTSIDE RECORDS SUMMARY | 2024-11-30 13:46 | XMS_ITS | Encounter Summary ---
Author Organization [facility] Address [address] [place] [address] Care Team Providers Care Warehouse Analyst Name Role Phone Aamir Purcell DO Primary Care Provider [phone] Adilson Hernandez MD Unavailable [phone] Kartik Mejia MD Unavailable [phone] Tisha Arriaga MD Unavailable Luis Miguel Kaur MD Unavailable [phone] Chris Zavala OD Unavailable Unavailable Encounter Details Date Type Department Care Team (Late st Contact Info) Description 11/01/2019 Telephone Infusion [facility] Outpatient Care [address] [place] [address] Nahomy Fenton, VIRGIE Social History [...] Comorbidity, call the COVID-19 Call Center at [phone] withAttending approval ? Comorbidity: Age >60: No [...] on filedocumented in this encounter Care Teams Warehouse Analyst Relationship Specialty Start Date End Date Aamir Purcell DO PCP - General Family Medicine 03/06/17 Adilson Hernandez MD [address] [place] [address] Ophthalmology 07/18/17 Kartik Mejia MD [address] [place] [address] Pain Medicine 12/25/17 Tisha Arriaga MD [address] [place] [id number] Neurologist Neurology 07/18/17 Luis Miguel Kaur MD [address] [place] [address] Felt Tipping Machine Tender Endocrinology, Diabetes & Metabolism 03/06/17 Chris Zavala, OD [address] [place] [address] Optometry 03/15/20 documented as of this encounter
--- OUTSIDE RECORDS SUMMARY | 2024-11-30 13:46 | XMS_ITS | Encounter Summary ---
Author Organization [facility] Address [address] [place] [address] Care Team Providers Care Refining Engineer Name Role Phone Aamir Purcell MD Primary Care Provider [phone] Encounter Details Date Type Department Care Team (Late st Contact Info) Description 03/31/2023 Orders Only [facility] 112 [facility] 110 [place] [address] A, Unknown Practice [address] [place] [address] Social History Tobacco Use Types Packs/Day Years [...] 12/27/2024 1:45 PM EST Office Visit [facility] Eye [address] [place] [address] Adilson Johnson, DO [address] [place] [address] documented as of this encounter Procedures Procedure Name Priority Date/Time Associated Diagnosis Comments SCANNED LABS Routine 03/29/2023 1:07 PM EST documented in this encounter Results * SCANNED LABS (03/29/2023 1:07 PM EST) us Unknown Practice A LAB CHG PERFORMABLES Final Re sult documented in this encounter Visit Diagnoses Not on filedocumented in this encounter Care Teams Refining Engineer Relationship Specialty Start Date End Date Aamir Purcell MD PCP - General Family Medicine 08/12/22 documented as of this encounter
--- OUTSIDE RECORDS SUMMARY | 2024-11-30 13:46 | XMS_ITS | Encounter Summary ---
Author Organization [facility] Address [address] [place] [address] Care Team Providers Care Freelance Digital Project Manager Name Role Phone Aamir Purcell MD Primary Care Provider [phone] Encounter Details Date Type Department Care Team (Late st Contact Info) Description 04/09/2024 Abstract [facility] 112 [facility] 110 [place] [address] Unallocated, Noms MD [place] [place] [address] Social History Tobacco Use Types Packs/Day Years [...] Hospital Eye [address] [place] [address] Adilson Johnson, DO [address] [place] [address] documented as of this encounter Visit Diagnoses Not on filedocumented in this encounter Care Teams Freelance Digital Project Manager Relationship Specialty Start Date End Date Aamir Purcell MD PCP - General Family Medicine 08/12/22 documented as of this encounter
--- OUTSIDE RECORDS SUMMARY | 2024-11-30 13:46 | XMS_ITS | Encounter Summary ---
Author Organization [facility] Address [address] [place] [address] Care Team Providers Care Inlayer Silver Name Role Phone Aamir Purcell MD Primary Care Provider Encounter Details Date Type Department Care Team (Late st Contact Info) Description 05/05/2024 Abstract [facility] 112 [facility] 110 [place] [address] Unallocated, Noms MD [place] [place] [address] Social History Tobacco Use Types Packs/Day Years [...] 12/27/2024 1:45 PM EST Office Visit [facility] [address] [place] [address] Adilson Johnson, DO [address] [place] [address] documented as of this encounter Visit Diagnoses Not on filedocumented in this encounter Care Teams Inlayer Silver Relationship Specialty Start Date End Date Aamir Purcell MD PCP - General Family Medicine 08/12/22 documented as of this encounter
--- OUTSIDE RECORDS SUMMARY | 2024-11-30 13:46 | XMS_ITS | Encounter Summary ---
Author Organization [facility] Address [address] [place] [address] Care Team Providers Care Interventional Nurse Name Role Phone Aamir Purcell Primary Care Provider [phone] Hoang Gilliam DPM Unavailable [phone] SOMMER DO, W. Don Unavailable [phone] Encounter Details Date Type Department Care Team (Late st Contact Info) Description 04/02/2017 Abstract [facility] Heart & Vascular Physicians [address], 3rd [place] [address] Alaina Doan MA Social History [...] documented as of this encounter Care Teams Interventional Nurse Relationship Specialty Start Date End Date Aamir Purcell DO [address] [place] [address] PCP - General Family Medicine 03/28/17 Hoang Gilliam DPM [address] [place] [address] Consulting Physician Podiatry 04/07/17 05/17/21 Reji Miramontes III, DO [address] [place] [address] Consulting Physician Vascular Surgery 04/07/17 05/17/21 documented as of this encounter
--- OUTSIDE RECORDS SUMMARY | 2024-11-30 13:47 | XMS_ITS | Encounter Summary ---
Author Organization [facility] Address [address] [place] [address] Care Team Providers Care Assistant Food Service Manager Name Role Phone Aamir Purcell DO Primary Care Provider [phone] Encounter Details Date Type Department Care Team (Late st Contact Info) Description 10/30/2021 Lab Requisition [facility] [[email or web address] Lab [address] [place] [id number] Migue Cole MD [address] [address] Social History Tobacco Use Types Packs/Day Years [...] 9:42 AM EDT [facility] ([facility]) BUN 36(H) 7 - 25 mg/dL 10/30/2021 9:42 AM EDT [facility] ([facility]) Creatinine 0.71 0.60 - 1.20 mg/dL 10/30/2021 9:42 AM EDT [facility] ([facility]) Glucose 74 70 - 100 mg/dL 10/30/2021 9:42 AM EDT [facility] ([facility]) Calcium 9.6 8.6 - 10.3 mg/dL 10/30/2021 9:42 AM EDT [facility] ([facility]) Anion Gap 10 <=30 mmol/L 10/30/2021 9:42 AM EDT [facility] ([facility]) eGFR 94.2 >60.0 mL/min/1. 73m*2 10/30/2021 9:42 AM EDT [facility] ([facility]) Comment:[facility] s estimated glomerular filtration rate (eGFR) [...] 9:42 AM EDT [facility] ([facility]) Blood Venous blood specimen / Unknown 10/30/2021 7:00 AM EDT 10/30/2021 3:45 AM EDT us Migue Cole MD LAB BLOOD ORDERABLES Final Result [facility] ([facility]) [address] [place] [address] documented in this encounter Visit Diagnoses Not on filedocumented in this encounter Care Teams Assistant Food Service Manager Relationship Specialty Start Date End Date Aamir Purcell DO [address] [place] [address] PCP - General 10/19/21 documented as of this encounter
--- OUTSIDE RECORDS SUMMARY | 2024-11-30 13:47 | XMS_ITS | Encounter Summary ---
Author Organization [facility] [employer] enter Address [address] [place] [address] Care Team Providers Care Forcer Maker Name Role Phone Aamir Purcell DO Primary Care Provider [phone] Adilson Hernandez MD Unavailable [phone] Kartik Mejia MD Unavailable [phone] Tisha Arriaga MD Unavailable Luis Miguel Kaur MD Unavailable [phone] Chris Zavala OD Unavailable Unavailable Reason for Visit * Reason Onset Date Comments Infusion Visit 06/15/2019 Encounter Details Date Type Department Care Team (Late st Contact Info) Description 06/15/2019 Telephone Neurology [facility] Outpatient Care [address] [place] [address] Mai Robles Infusion Visit Social [...] on filedocumented in this encounter Care Teams Forcer Maker Relationship Specialty Start Date End Date Binh AamirDO PCP - General Family Medicine 03/06/17 Adilson Hernandez MD [address] [place] [address] Ophthalmology 07/18/17 Kartik Mejia MD [address] [place] [address] Pain Medicine 12/25/17 Tisha Arriaga MD [address] [place] [id number] Neurologist Neurology 07/18/17 Luis Miguel Kaur MD [address] [place] [address] Curing Room Worker Endocrinology, Diabetes & Metabolism 03/06/17 Chris Zavala, OD [address] [place] [address] Optometry 03/15/20 documented as of this encounter
--- OUTSIDE RECORDS SUMMARY | 2024-11-30 13:47 | XMS_ITS | Encounter Summary ---
Author Organization [facility] enter Address [address] [place] [address] Care Team Providers Care Edge Gluer Name Role Phone Aamir Purcell DO Primary Care Provider [phone] Adilson Hernandez MD Unavailable [phone] Kartik Mejia MD Unavailable [phone] Tisha Arriaga MD Unavailable Luis Miguel Kaur MD Unavailable [phone] Chris Zavala OD Unavailable Unavailable Reason for Visit * Reason Onset Date Comments Reschedule 11/29/2020 Encounter Details Date Type Department Care Team (Late st Contact Info) Description 11/29/2020 Telephone Central Scheduling [address] [place] [address] Jeremy Hernandez MD [address] [facility] [address] [place] [address] Reschedule Social History Tobacco Use [...] on filedocumented in this encounter Care Teams Edge Gluer Relationship Specialty Start Date End Date Aamir Purcell DO PCP - General Family Medicine 03/06/17 Adilson Hernandez MD [address] [place] [address] Ophthalmology 07/18/17 Kartik Mejia MD [address] [place] [address] Pain Medicine 12/25/17 Tisha Arriaga MD [address] [place] [address] Neurologist Neurology 07/18/17 Luis Miguel Kaur MD [address] [place] [address] Rn Family Practice Endocrinology, Diabetes & Metabolism 03/06/17 Chris Zavala, OD [address] [place] [address] Optometry 03/15/20 documented as of this encounter
--- OUTSIDE RECORDS SUMMARY | 2024-11-30 13:47 | XMS_ITS | Encounter Summary ---
Author Organization [facility] Address [address] [place] [address] Care Team Providers Care Rotary Operator Name Role Phone Aamir Purcell DO Primary Care Provider [phone] Adilson Hernandez MD Unavailable [phone] Kartik Mejia MD Unavailable [phone] Tisha Arriaga MD Unavailable Luis Miguel Kaur MD Unavailable [phone] Chris Zavala OD Unavailable Unavailable Reason for Visit * Reason Onset Date Comments Order Request 03/15/2019 Encounter Details Date Type Department Care Team (Late st Contact Info) Description 03/15/2019 Telephone Central Scheduling [address] [place] [address] Arcenio Lopez Order Request Social [...] on filedocumented in this encounter Care Teams Rotary Operator Relationship Specialty Start Date End Date Aamir Purcell DO PCP - General Family Medicine 03/06/17 Adilson Hernandez MD [address] [place] [address] Ophthalmology 07/18/17 Kartik Mejia MD [address] [place] [address] Pain Medicine 12/25/17 Tisha Arriaga MD [address] [place] [address] Neurologist Neurology 07/18/17 Luis Miguel Kaur MD [address] [place] [address] Geospatial Intelligence Analyst Endocrinology, Diabetes & Metabolism 03/06/17 Chris Zavala, OD [address] [place] [address] Optometry 03/15/20 documented as of this encounter
--- OUTSIDE RECORDS SUMMARY | 2024-11-30 13:47 | XMS_ITS | Encounter Summary ---
Author Organization [facility] Address [address] [place] [address] Care Team Providers Care Chip Applying Machine Tender Name Role Phone Aamir Purcell DO Primary Care Provider [phone] Adilson Hernandez MD Unavailable [phone] Kartik Mejia MD Unavailable [phone] Tisha Arriaga MD Unavailable Luis Miguel Kaur MD Unavailable [phone] Chris Zavala OD Unavailable Unavailable Encounter Details Date Type Department Care Team (Late st Contact Info) Description 07/19/2019 Telephone Infusion [facility] Outpatient Care [address] [place] [address] Nahomy Fenton, VIRGIE Social History [...] Comorbidity, call the COVID-19 Call Center at [phone] withAttending approval ? Comorbidity: Age >60: No [...] on filedocumented in this encounter Care Teams Chip Applying Machine Tender Relationship Specialty Start Date End Date Aamir Purcell DO PCP - General Family Medicine 03/06/17 Adilson Hernandez MD [address] [place] [address] Ophthalmology 07/18/17 Kartik Mejia MD [address] [place] [address] Pain Medicine 12/25/17 Tisha Arriaga MD [address] [place] [phone] Neurologist Neurology 07/18/17 Luis Miguel Kaur MD [address] [place] [address] Property Utilization Manager Endocrinology, Diabetes & Metabolism 03/06/17 Chris Zavala, OD [address] [place] [address] Optometry 03/15/20 documented as of this encounter
--- OUTSIDE RECORDS SUMMARY | 2024-11-30 13:47 | XMS_ITS | Encounter Summary ---
Author Organization [facility] Address [address] [place] [address] Care Team Providers Care Corporate Events Director Name Role Phone Aamir Purcell DO Primary Care Provider [phone] Adilson Hernandez MD Unavailable [phone] Kartik Mejia MD Unavailable [phone] Tisha Arriaga MD Unavailable Luis Miguel Kaur MD Unavailable [phone] Chris Zavala OD Unavailable Unavailable Reason for Visit * Reason Onset Date Comments Appointment 11/27/2018 Encounter Details Date Type Department Care Team (Late st Contact Info) Description 11/27/2018 Telephone Central Scheduling [address] [place] [address] Grace Washington MD [address] [facility] [address] [place] [address] Appointment Social History Tobacco Use [...] filedocumented in this encounter Care Teams Corporate Events Director Relationship Specialty Start Date End Date Amair Purcell DO PCP - General Family Medicine 03/06/17 Adilson Hernandez MD [address] [place] [address] Ophthalmology 07/18/17 Kartik Mejia MD [address] [place] [address] Pain Medicine 12/25/17 Tisha Arriaga MD [address] [place] [address] Neurologist Neurology 07/18/17 Luis Miguel Kaur MD [address] [place] [address] Merchandise Complaint Adjuster Endocrinology, Diabetes & Metabolism 03/06/17 Chris Zavala, OD [address] [place] [address] Optometry 03/15/20 documented as of this encounter
--- OUTSIDE RECORDS SUMMARY | 2024-11-30 13:47 | XMS_ITS | Encounter Summary ---
Author Organization [facility] [employer] enter Address [address] [place] [address] Care Team Providers Care Printing And Stamping Supervisor Name Role Phone Aamir Purcell DO Primary Care Provider [phone] Adlison Hernandez MD Unavailable [phone] Kartik Mejia MD Unavailable [phone] Tisha Arriaga MD Unavailable Luis Miguel Kaur MD Unavailable [phone] Chris Zavala OD Unavailable Unavailable Encounter Details Date Type Department Care Team (Late st Contact Info) Description 07/05/2019 Telephone Infusion [facility] Outpatient Care [address] [place] [address] Nahomy Fenton, VIRGIE Social History [...] Comorbidity, call the COVID-19 Call Center at [phone] withAttending approval ? Comorbidity: Age >60: No [...] filedocumented in this encounter Care Teams Printing And Stamping Supervisor Relationship Specialty Start Date End Date Aamir Purcell DO PCP - General Family Medicine 03/06/17 Adilson Hernandez MD [address] [place] [address] Ophthalmology 07/18/17 Kartik Mejia MD [address] [place] [address] Pain Medicine 12/25/17 Tisha Arriaga MD [address] [place] [address] Neurologist Neurology 07/18/17 Luis Miguel Kaur MD [address] [place] [address] [employer]ox Machine Mechanic Endocrinology, Diabetes & Metabolism 03/06/17 Chris Zavala, OD [address] [place] [address] Optometry 03/15/20 documented as of this encounter
--- OUTSIDE RECORDS SUMMARY | 2024-11-30 13:47 | XMS_ITS | Encounter Summary ---
Author Organization [facility] [employer] Address [address] [place] [address] Care Team Providers Care Master Hearth Technician Name Role Phone BinhAamir DO Primary Care Provider [phone] Adilson Hernandez MD Unavailable [phone] Kartik Mejia MD Unavailable [phone] Tisha Arriaga MD Unavailable Luis Miguel Kaur MD Unavailable [phone] Chris Zavala OD Unavailable Unavailable Encounter Details Date Type Department Care Team (Late st Contact Info) Description 02/16/2015 Telephone Neurology [facility] Outpatient Care [address] [place] [address] [place] [address] Clark Duncan Social History Tobacco [...] on filedocumented in this encounter Care Teams Master Hearth Technician Relationship Specialty Start Date End Date Aamir Purcell DO PCP - General Family Medicine 03/06/17 Adilson Hernandez MD [address] [place] [address] Ophthalmology 07/18/17 Kartik Mejia MD [address] [place] [address] Pain Medicine 12/25/17 Tisha Arriaga MD [address] [place] [id number] Neurologist Neurology 07/18/17 Luis Miguel Kaur MD [address] [place] [address] Sustainable Communities Designer Endocrinology, Diabetes & Metabolism 03/06/17 Chris Zavala, OD [address] [place] [address] Optometry 03/15/20 documented as of this encounter
--- OUTSIDE RECORDS SUMMARY | 2024-11-30 13:47 | XMS_ITS | Clinical Summary ---
Author Organization [facility] Address [address] [place] [address] Care Team Providers Care Centerless Grinder Tender Name Role Phone Aamir Purcell DO Primary Care Provider [phone] Adilson Hernandez MD Unavailable [phone] Kartik Mejia MD Unavailable [phone] Tisha Arriaga MD Unavailable Luis Miguel Kaur MD Unavailable [phone] Chris Zavala OD Unavailable Unavailable Allergies [...] (04/20/2020): Added automatically from request for surgery [id number] Primary open angle glaucoma (POAG) of left eye, severe stage 12/31/2019 Overview (12/31/2019): Added automatically from request for surgery [id number] Osteomyelitis 04/23/2019 Nuclear sclerotic cataract of left eye 9 Overview (12/16/2018): Added automatically from request for surgery [id number] CIDP (chronic inflammatory demyelinating polyneu ropathy) 06/24/2018 [...] 01/22/2018 Chronic pain of both knees 01/22/2018 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 non -steroidal anti-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 (NSAID) [...] Additional history exists COVID-19 VACCINE ( - 2024- season) 2024 INFLUENZA VACCINE (#1) 2024 0, 11/04/2013, 11/04/2013 [...] this topic Medical Devices Implanted Type Area Commissioning Specialist Device Identifier Shelf Expiration Date Model / Serial / Lot Lens [id number] D 23.5 - [id number] Implanted:Qty: 1 on 12/23/2018 by Grace Washington MD at [facility] LOC Left: Eye [employer] 09/16/2021 [id number] D 23.5 / [id number] / Implant Opth 250sq Mm Jo 1 Qdrnt Ins Fx Sut Hl Rcs Knt Cpb - [id number] Implanted:Qty: 1 on 02/23/2020 by Grace Washington MD at [facility] LOC Left: Eye [employer] (IMANI) 11/23/2020 [id number] / [id number] / Osc Tissue Cornea Padmini [id number] Implanted:Qty: 1 on 02/23/2020 by Grace Washington MD at [facility] LOC Left: Eye [employer] [facility] 08/16/2020 GLYCERIN / / [id number] Procedures Procedure Name Priority Date/Time Associated Diagnosis [...] Fatigue, unspecified type History of Raynaud's syndrome 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 non-steroidal anti-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 (NSAID) Alkaline phosphatase elevation Type 1 diabetes mellitus with diabetic neuropathy DIABETIC EYE EXAM (OUTSIDE) Routine 06/20/2017 MAMMO SCREENING BILATERAL Routine 04/04/2017 12:46 PM EST Screening mammogram, encounter for from Last 3 Months or Most Recently Relevant to Health Maintenance Results * (ABNORMAL) MICROALBUMIN/CREATININE RATIO (03/15/2021 10:50 AM EST) CREATININE, MG/DL, URINE 105.5 MG/DL [address] Comment:NO NORMAL VALUES EST ABLISHED FOR RANDOM SPECIMENS Microalbumin, Urine, Random 133.1(H) 0 - 16.7 mg/L [address] MICROALBUMIN/CRE ATININE RATIO 126.2(H) 1.3 - 30.0 mg [facility] [address] Comment:Testing performed at [place], [place] [address] 03/15/2021 10:5 0 AM EST 03/15/2021 11:00 AM EST us Luis Miguel Kaur MD BODY FLUIDS & STOOLS ORDERABLE S Final Result [address] [address] * (ABNORMAL) TSH W/FT4 REFLEX (03/15/2021 8:58 AM EST) TSH, Reflex FT4 7.180(H) 0.46 - 4.68 uIU/ML [address] Comment:Testing performed at [place], [place] [address] Blood 03/15/2021 8:58 AM EST 03/15/2021 9:00 AM EST Luis Miguel Kaur MD ENDOCRINOLOGY Final Result [address] [address] * (ABNORMAL) HEMOGLOBIN A1C (03/15/2021 8:58 AM EST) HEMOGLOBIN A1C 11.7(H) 0 - 6 % [facility] - [address] - [place] Comment: NORMAL <5.7% PREDIABETES 5.7-6.4% DIABETES 6.5% OR HIGHER Estimated Average Glucose 289 mg/dL [facility] - [address] - [place] Blood 03/15/2021 8:58 AM EST 03/15/2021 9:00 AM EST Luis Miguel Kaur MD HEMATOLOGY ORDERABLES Final Re sult [facility] - [address] - [facility] [address] [place] [address] * (ABNORMAL) LIPID PANEL W CALCULATED LDL (03/15/2021 8:58 AM EST) CHOLESTEROL 226(H) 107 - 217 MG/DL [address] TRIGLYCERIDE 174(H) 0 - 150 MG/DL [address] HDL CHOLESTEROL 48 33 - 75 MG/DL [address] LDL CHOLESTEROL, CALCULATED 143 MG/DL [address] VLDL Cholesterol, Calculated 35(H) 5.0 - 25 MG/DL [address] TCHOL/HDL RATIO, MANUAL ENTER 4.[address] Comment: RISK TOTAL/HDL RATIO MEN WOMEN 1/2 AVERAGE 3.43 3.27 AVERAGE 4.97 4.44 2X AVERAGE 9.55 7.05 3X AVERAGE 23.99 11.04 Testing performed at [place], [place] [address] Blood 03/15/2021 8:58 AM EST 03/15/2021 9:00 AM EST us Luis Miguel Kaur MD CHEMISTRY ORDERABLES Final Res ult [address] [address] * (ABNORMAL) COMPREHENSIVE METABOLIC PANEL (03/15/2021 8:58 AM EST) Glucose 222(H) 70 - 100 MG/DL [address] Comment: NORMAL <100 mg/dL PREDIABETES 101-126 mg/dL DIABETES 126 mg/dL or higher BUN 26(H) 7 - 20 MG/DL [address] CREATININE SERUM 1.20 0.7 - 1.2 MG/DL [address] SODIUM 139 137 - 145 MMOL/L [address] Potassium 4.5 3.5 - 5.1 MMOL/L [address] CHLORIDE 105 98 - 107 MMOL/L [address] Comment:Please note: Triglyc eride levels of 600mg/dL or higher may positively bias chloride results by approximately 2.1 mmol CALCIUM 9.6 8.4 - 10.2 MG/DL [address] PROTEIN, TOTAL 7.3 6.3 - 8.2 GM/DL [address] Albumin 3.9 3.5 - 5.0 G/dl [address] BILIRUBIN, TOTAL 0.4 0.2 - 1.3 MG/DL [address] AST 19 14 - 36 IU/L [address] ALKALINE PHOSPHATASE 113 38 - 126 IU/L [address] CARBON DIOXIDE (CO2) 24 22 - 30 MMOL/L [address] A/G Ratio 1.1(L) 1.3 - 2.[address] ALT 14 <35 IU/L [address] ESTIMATED GFR, NON AMER 49 ml/min/1. 73sq.m [address] ESTIMATED GFR, 59 ml/min/1. 73sq.m [address] GFR COMMENT Average GFR for 50-59 years old = 93. [address] Comment: Chronic Kidney disease, GFR = <60. Kidney failure, GFR = <15. The GFR estimate is not adjusted for extreme body surface area or acute process, nor has it been validated for women or ethnic groups other than and . Testing performed at [place], [place] [address] Blood 03/15/2021 8:58 AM EST 03/15/2021 9:00 AM EST us Luis Miguel Kaur MD CHEMISTRY ORDERABLES Final Res ult [address] [address] * HEPATITIS A, B, C (01/22/2018 4:29 [...] with a HCV Nucleic Acid Amplification test ([id number]). PERFORMED AT [facility] 01/22/2018 4:29 PM EST 01/22/2018 4:33 PM EST Victor Manuel gAee Jr., DO IMMUNOLOGY ORDERABLES Final Result [facility] * DIABETIC EYE EXAM (OUTSIDE) (06/20/2017) Historical Provider NM - ENDOCRINE SYSTEM SERVIC ES Final Result [...] are present. Early vascular calcifications are noted. us Self-Referred Mammography-Hardy Moreno MD BREAST IMAGING Final Result from Last 3 Months or Most Recently Relevant to Health Maintenance Insurance Medicare A and B Medicare A and B [facility] Medicare A and B [facility] Self Insured Employer or Generic [facility] Advance Directives For more information, please contact: [phone] (7:30 AM - 6PM [facility], Friday-Friday) * Full Code (Latest Code Status on File) Date Activated Date Inactivated Comments 10/09/2017 4:19 PM Care Teams Centerless Grinder Tender Relationship Specialty Start Date End Date Aamir Purcell DO PCP - General Family Medicine 03/06/17 Adilson Hernandez MD [address] [place] [address] Ophthalmology 07/18/17 Kartik Mejia MD [address] [place] [address] Pain Medicine 12/25/17 Tisha Arriaga MD [address] [place] [address] Neurologist Neurology 07/18/17 Luis Miguel Kaur MD [address] [place] [address] Table Filler Endocrinology, Diabetes & Metabolism 03/06/17 Chris Zavala, ROGELIO [address] [place] [address] Optometry 03/15/20
--- OUTSIDE RECORDS SUMMARY | 2024-11-30 13:47 | XMS_ITS | Encounter Summary ---
Author Organization [facility] enter Address [address] [place] [address] Care Team Providers Care Field Case Manager Name Role Phone Aamir Purcell DO Primary Care Provider [phone] Adilson Hernandez MD Unavailable [phone] Kartik Mejia MD Unavailable [phone] Tisha Arriaga MD Unavailable Luis Miguel Kaur MD Unavailable [phone] Chris Zavala OD Unavailable Unavailable Encounter Details Date Type Department Care Team (Late st Contact Info) Description 07/19/2019 Telephone Infusion [facility] Outpatient Care [address] [place] [address] Nahomy Fenton, VIRGIE Social History [...] filedocumented in this encounter Care Teams Field Case Manager Relationship Specialty Start Date End Date BinhAamir PCP - General Family Medicine 03/06/17 Adilson Hernandez MD [address] [place] [address] Ophthalmology 07/18/17 Kartik Mejia MD [address] [place] [address] Pain Medicine 12/25/17 Tisha Arriaga MD [address] [place] [address] Neurologist Neurology 07/18/17 Luis Miguel Kaur MD [address] [place] [id number] Manager Customer Service Endocrinology, Diabetes & Metabolism 03/06/17 Chris Zavala, OD [address] [place] [address] Optometry 03/15/20 documented as of this encounter
--- OUTSIDE RECORDS SUMMARY | 2024-11-30 13:47 | XMS_ITS | Encounter Summary ---
Author Organization [facility] Address [address] [place] [address] Care Team Providers Care Slasher Tender Name Role Phone Aamir Purcell DO Primary Care Provider [phone] Adilson Hernandez MD Unavailable [phone] Kartik Mejia MD Unavailable [phone] Tisha Arriaga MD Unavailable Luis Miguel Kaur MD Unavailable [phone] Chris Zavala OD Unavailable Unavailable Reason for Visit * Reason Onset Date Comments Other 11/26/2018 Encounter Details Date Type Department Care Team (Late st Contact Info) Description 11/26/2018 Telephone Central Scheduling [address] [place] [address] Grace Washington MD [address] [facility] [address] [place] [address] Other Social History Tobacco Use [...] if Dr. Washington has talked to her dye line operator Dr. Ferguson yet? She states she needs [...] on filedocumented in this encounter Care Teams Slasher Tender Relationship Specialty Start Date End Date Aamir Purcell DO PCP - General Family Medicine 03/06/17 Adilson Hernandez MD [address] [place] [address] Ophthalmology 07/18/17 Kartik Mejia MD [address] [place] [address] Pain Medicine 12/25/17 Tisha Arriaga MD [address] [place] [address] Neurologist Neurology 07/18/17 Luis Miguel Kaur MD [address] [place] [address] Intake Clinician Endocrinology, Diabetes & Metabolism 03/06/17 Chris Zavala, OD [address] [place] [address] Optometry 03/15/20 documented as of this encounter
--- OUTSIDE RECORDS SUMMARY | 2024-11-30 13:47 | XMS_ITS | Encounter Summary ---
Author Organization [facility] Address [address] [place] [address] Care Team Providers Care Boiler Assistant Operator Name Role Phone Aamir Purcell DO Primary Care Provider [phone] Encounter Details Date Type Department Care Team (Late st Contact Info) Description 10/27/2021 Lab Requisition [facility] [address] [place] [phone] Migue Cole MD [address] [address] Social History Tobacco Use Types Packs/Day Years [...] ORDERABLES Final Result [facility] [address] [place] [address] * (ABNORMAL) Hemoglobin (10/27/2021 7:21 PM EDT) Hemoglobin 10.7(L) 12.0 - 15.0 g/dL 10/27/2021 8:49 PM EDT [facility] ([facility]) Blood Venous blood specimen / Unknown 10/27/2021 7:21 PM EDT 10/27/2021 7:22 PM EDT Migue Cole MD LAB BLOOD ORDERABLES Final Result Performing Organization Address City/[facility] Co de Phone Number [facility] [address] [place], [place] [phone] documented in this encounter Visit Diagnoses Not on filedocumented in this encounter Care Teams Boiler Assistant Operator Relationship Specialty Start Date End Date Aamir Purcell DO [address] [place] [address] PCP - General 10/19/21 documented as of this encounter
--- OUTSIDE RECORDS SUMMARY | 2024-11-30 13:47 | XMS_ITS | Patient Health Record ---
Author Organization [facility] [employer] Address [address] [place] [address] Care Team Providers Care Road Manager Name Role Phone Aamir Purcell DO Primary Care Provider Unavaila ble Reason For Referral No Information Problems Problem Type SNOMED Code ICD Code Onset Dates Problem Status W/U Status Risk Notes Problem Type II diabetes mellitus without complication (906783994) Type 2 diabetes mellitus without complications (E11.9) Active confirmed Problem Foot ulcer due to ty pe 2 diabetes mellitus (9711407444957) Type 2 diabetes mellitus with foot ulcer (E11.621) Active confirmed Problem Chronic ulcer of luz t (145155503) 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) Active confirmed Problem Long-term current us e of insulin (326220392) 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 (current) use of insulin (Z79.4) Active confirmed Problem Encephalopathy (61427121) Encephalopathy (G93.40) Active confirmed Problem Essential hypertensi on (12189130) Essential hypertension (I10) Active confirmed Problem Mitral valve disorde r (88929086) MR (mitral regurgitation) (I34.0) Active confirmed Problem Acquired hypothyroid ism (768885292) Acquired hypothyroidism (E03.9) Active confirmed Problem Thrombocytopenia (081994864) Thrombocytopenia (D69.6) Active confirmed Problem 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) (322770195) 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512) Active confirmed Problem Gastroesophageal ref lux disease (538648752) Gastroesophageal reflux disease, unspecified whether esophagitis present (K21.9) Active confirmed Plan Of Treatment No Information Insurance Providers Payer Name Payer Address Payer Phone Subscriber Number Group Number Insured Name Patient Relationship to Insured Coverage Start Date Coverage End Date [place] [address] [place] [address] [id number] Cleo Georges Self - patient is the insured [facility] [address] [address] [place] [address] [id number] Cleo Georges Self - patient is the insured
--- OUTSIDE RECORDS SUMMARY | 2024-11-30 13:48 | XMS_ITS | Encounter Summary ---
Author Organization [facility] Address [address] [place] [address] Care Team Providers Care Cow Puncher Name Role Phone Aamir Purcell MD Primary Care Provider [phone] Encounter Details Date Type Department Care Team (Late st Contact Info) Description 11/22/2024 Telephone [facility] [address] [facility] 110 [place] [address] Maine Interiano, ARLETTE [address] [facility] 110 [place], [place] [address] Social History Tobacco Use Types Packs/Day Years Used Date Smoking Tobacco: Never Assessed Comments Unknown Sex and Gender Information Value Date Recorded Sex Assigned at Not on file Legal Sex Female 6:48 PM EDT Gender Identity Not on file Sexual Orientation Not on file documented as of this encounter Miscellaneous Notes * Telephone Encounter - Maine Interiano NP - 11/22/2024 10:15 PM EDT Requested Prescriptions Signed Prescriptions Disp Refills carvedilol (Coreg) 12.5 MG tablet 60 tablet 11 Sig: Take 1 tablet (12.5 mg) by mouth in the morning and 1 tablet (12.5 mg) before bedtime. Authorizing Provider: MAINE INTERIANO aspirin 325 MG tablet 30 tablet 11 Sig: Take 1 tablet (325 mg) by mouth Daily Authorizing Provider: MAINE INTERIANO ferrous sulfate (Fe Tabs) 325 (65 Fe) MG EC tablet 30 tablet 11 Sig: Take 1 tablet (325 mg) by mouth in the morning. Take with meals. Do not crush, chew, or split. Authorizing Provider: MAINE INTERIANO documented in this encounter Plan of Treatment Upcoming Encounters Date Type Department Care Team (Late st Contact Info) Description 12/27/2024 1:45 PM EST Office Visit [facility] [address] [place] [address] Adilson Johnson, [address] [place] [address] documented as of this encounter Visit Diagnoses Diagnosis Primary hypertension- Primary Unspecified essential hypertension Other iron deficiency anemia documented in this encounter Care Teams Cow Puncher Relationship Specialty Start Date End Date Aamir Purcell MD PCP - General Family Medicine 08/12/22 documented as of this encounter
--- OUTSIDE RECORDS SUMMARY | 2024-11-30 13:48 | XMS_ITS | Encounter Summary ---
Author Organization [facility] Address [address] [place] [address] Care Team Providers Care Mortgage Servicing Specialist Name Role Phone Aamir Purcell MD Primary Care Provider [phone] Encounter Details Date Type Department Care Team (Late st Contact Info) Description 08/09/2024 Abstract [facility] [place] [address] [facility] 110 [place] [address] Unallocated, Noms MD Garrick [address] [place] [address] Social History Tobacco Use Types Packs/Day Years [...] Center Eye [address] [place] [address] Adilson Johnson, DO [address] [place] [address] documented as of this encounter Visit Diagnoses Not on filedocumented in this encounter Care Teams Mortgage Servicing Specialist Relationship Specialty Start Date End Date Aamir Purcell MD PCP - General Family Medicine 08/12/22 documented as of this encounter
--- OUTSIDE RECORDS SUMMARY | 2024-11-30 13:48 | XMS_ITS | Patient Health Record ---
Author Organization [facility] Address [address] [place] [address] [place] [address] Care Team Providers Care Form Grader Operator Name Role Phone José Miguel Crouch;Jesse richey Primary Care Provider Un available JoanncedrickJose Unavailable [phone] Allergies Allergen (clinical drug ingredient) Drug/Non Drug [...] Notes Problem Type 2 diabetes mellitus with peripheral angiopathy (649846175) Type 2 diabetes mellitus with diabetic peripheral angiopathy without gangrene (E11.51) Active confirmed Problem Long-term current use of insulin (601861827) penitentiary (current) use of insulin (Z79.4) Active confirmed z79 Problem Absence of toe (928733826) 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) Active confirmed Vital Signs Blood pressure diastolic 70 mm Hg 08/05/2024 Height 65 in 08/05/2024 Blood pressure systolic 128 mm Hg 08/05/2024 Weight 155 lbs 08/05/2024 BMI 25.79 08/05/2024 Encounters Encounter Location Date Provider [facility] [address] [place] [address] 01/21/2024 Jose Field [facility] [address] [place] [address] 04/21/2024 Jose Field [facility] [address] [place] [address] 06/09/2024 Jose Field [facility] [address] [place] [address] 10/20/2024 [facility] [address] [place] [address] 08/05/2024 Jose Field terminal press operator (current) use of insulin Z79.4 ; Type 2 diabetes mellitus with diabetic peripheral angiopathy without gangrene E11.51 and Acquired absence of other left toe(s) Z89.422 [facility] [address] [place] [address] 10/19/2024 Jose Field Assessments Encounter Date Diagnosis (ICD Code) Assessment [...] style of shoe in size10 medium. 08/05/2024 terminal press operator (current) use of insulin (ICD-10 - Z79.4) 08/05/2024 Acquired absence of other left toe(s) (ICD-10 - Z89.422) Plan Of Treatment No Information Insurance Providers Payer Name Payer Address Payer Phone Subscriber Number Group Number Insured Name Patient Relationship to Insured Coverage Start Date Coverage End Date Medicare Part B J-15 Part [facility] [place] [address] [id number] Cleo Georges Self - patient is the insured [employer] [address] [place] [address] [id number] Cleo Georges Self - patient is the insured Medicaid [place] [employer] [address] [place] [id number] Cleo Georges Self - patient is the insured Medical (General) History Medical History History ICD Code type II diabetes glaucoma idiopathic epilepsy anemia hypokalemia anxiety depression spinal stenosis hyperlipidemia hypothyroidism cardiac murmur sleep apnea polyneuropathy hypertension asthma GERD Surgical History Surgery Date(Month/Year) heart surgery neck surgery Hospitalization History Reason Date(Month/Year) see surgical hx
--- OUTSIDE RECORDS SUMMARY | 2024-11-30 13:48 | XMS_ITS | Encounter Summary ---
Author Organization [facility] Address [address] [place] [address] Care Team Providers Care Roll Threader Operator Name Role Phone Aamir Purcell MD Primary Care Provider Encounter Details Date Type Department Care Team (Late Contact Info) Description 08/16/2024 [facility] 110 [place] [address] Aamir Purcell MD [address] [place] [address] Social History Tobacco Use Types Packs/Day Years [...] 12/27/2024 1:45 PM EST Office Visit [facility] [address] [place] [address] Adilson Johnson, DO [address] [place] [address] documented as of this encounter Visit Diagnoses Not on filedocumented in this encounter Care Teams Roll Threader Operator Relationship Specialty Start Date End Date Aamir Purcell MD PCP - General Family Medicine 08/12/22 documented as of this encounter
--- OUTSIDE RECORDS SUMMARY | 2024-11-30 13:48 | XMS_ITS | Encounter Summary ---
Author Organization [facility] Address [address] [place] [address] Care Team Providers Care Code Enforcement Supervisor Name Role Phone Aamir Purcell MD Primary Care Provider [phone] Encounter Details Date Type Department Care Team (Late st Contact Info) Description 11/02/2024 Abstract [facility] 112 [facility] 110 [place] [address] Unallocated, Noms MD Garrick [address] [place] [address] Social History Tobacco Use Types Packs/Day Years [...] 12/27/2024 1:45 PM EST Office Visit [facility] [address] [place] [address] Adilson Johnson, DO [address] [place] [address] documented as of this encounter Visit Diagnoses Not on filedocumented in this encounter Care Teams Code Enforcement Supervisor Relationship Specialty Start Date End Date Aamir Purcell MD PCP - General Family Medicine 08/12/22 documented as of this encounter
--- OUTSIDE RECORDS SUMMARY | 2024-11-30 13:48 | XMS_ITS | Encounter Summary ---
Author Organization [facility] Address [address] [place] [address] Care Team Providers Care Wood Heel Flap Inserter Name Role Phone Aamir Purcell MD Primary Care Provider [phone] Encounter Details Date Type Department Care Team (Late Contact Info) Description 11/23/2024 Telephone [facility] [address] [facility] [address] [place] [address] Maine Interiano, VOICE DATA COMMUNICATIONS ENGINEER [address] [facility] [address] [place], [place] [address] Social History Tobacco Use Types Packs/Day Years Used Date Smoking Tobacco: Never Assessed Comments Unknown Sex and Gender Information Value Date Recorded Sex Assigned at Not on file Legal Sex Female 6:48 PM EDT Gender Identity Not on file Sexual Orientation Not on file documented as of this encounter Miscellaneous Notes * Telephone Encounter - Maine Interiano NP - 11/23/2024 6:57 PM EDT Requested Prescriptions Signed Prescriptions Disp Refills potassium chloride CR (K-Tab) 20 MEQ ER tablet 30 tablet 11 Sig: Take 1 tablet (20 mEq) by mouth Daily Do not crush, chew, or split. Authorizing Provider: MAINE INTERIANO documented in this encounter Plan of Treatment Upcoming Encounters Date Type Department Care Team (Late Contact Info) Description 12/27/2024 1:45 PM EST Office Visit [facility] [address] [place] [address] Adilson Johnson, DO [address] [place] [address] documented as of this encounter Visit Diagnoses Diagnosis Hypokalemia- Primary Hypopotassemia documented in this encounter Care Teams Wood Heel Flap Inserter Relationship Specialty Start Date End Date Aamir Purcell MD PCP - General Family Medicine 08/12/22 documented as of this encounter
--- OUTSIDE RECORDS SUMMARY | 2024-11-30 13:48 | XMS_ITS | Encounter Summary ---
Author Organization [facility] Address [address] [place] [address] Care Team Providers Care Detention Attendant Name Role Phone Aamir Purcell MD Primary Care Provider [phone] Encounter Details Date Type Department Care Team (Late Contact Info) Description 11/23/2024 Telephone [facility] [address] [facility] 110 [place] [address] Arias Cruz MD 112 [facility] [address] [place] [address] Social History Tobacco Use Types Packs/Day Years Used Date Smoking Tobacco: Never Assessed Comments Unknown Sex and Gender Information Value Date Recorded Sex Assigned at Not on file Legal Sex Female 6:48 PM EDT Gender Identity Not on file Sexual Orientation Not on file documented as of this encounter Miscellaneous Notes * Telephone Encounter - Arias Cruz MD - 11/23/2024 9:35 AM EDT Needed refill of Potassium Chloride documented in this encounter Plan of Treatment Upcoming Encounters Date Type Department Care Team (Late st Contact Info) Description 12/27/2024 1:45 PM EST Office Visit [facility] [address] [place] [place] [address] Adilson Johnson, DO [address] [place] [address] documented as of this encounter Visit Diagnoses Diagnosis Hypokalemia- Primary Hypopotassemia documented in this encounter Care Teams Detention Attendant Relationship Specialty Start Date End Date Aamir Purcell MD PCP - General Family Medicine 08/12/22 documented as of this encounter
--- OUTSIDE RECORDS SUMMARY | 2024-11-30 13:48 | XMS_ITS | Clinical Summary ---
Author Organization [facility] Address [address] [place] [address] Care Team Providers Care Hat Liner Name Role Phone Aamir Purcell MD Primary Care Provider [phone] Allergies Active Allergy Reactions Criticality Noted Date Comments Cephalexin Hives,Itching,Unknow n,Rash,Swelling High 12/02/2011 burning Moxifloxacin Itching,Unknown,Rash ,Swelling High 12/02/2011 Abdominal pain Peg 5076-Wke-Fhviu-Nacl-Mello ulf High 10/28/2016 Tapentadol Unknown High 02/04/2014 [...] tablet as needed by oral route. Active divalproex (Depakote ER) 500 MG 24 hr tablet Active DULoxetine (Cymbalta) [address] capsule Take 1 capsule by mouth Daily Active insulin degludec (Tresiba FlexTouch) 100 UNIT/ML injection Inject by subcutaneous route. Active Basaglar KwikPen 100 UNIT/ML pen Active levothyroxine (Tirosint) 112 MCG capsule Take 1 capsule every day by oral route. Active omeprazole (PriLOSEC) [address] capsule Active sucralfate (Carafate) 1 GM/10ML suspension Active tiZANidine (Zanaflex) 4 MG tablet Take 1 tablet as needed by oral route. Active zonisamide (Zonegran) 100 MG capsule Take 1 capsule 3 times a day by oral route. Active brimonidine (AlphaGAN P) 0.2 % ophthalmic solution Active doxycycline (Vibramycin) 100 MG capsule Active glipiZIDE (Glucotrol) 10 MG tablet 1 (one) time each day at the same time Active HYDROcodone-felicita taminophen ([place]) 5-325 MG tablet Take 1 tablet by mouth every 4 (four) hours if needed Active meclizine (Antivert) 25 MG tablet Active traMADol (Ultram) 50 MG tablet Active triamcinolone (Kenalog) 0.1 % creamIndication s:Other atopic dermatitis Apply (1g) to the affected areas (feet), up to twice a day when flared, do not use one the face, groin, or underarms, 30 day supply 80 g 11 025 Active doxycycline (Monodox) 100 MG capsuleIndicati ons:Traumatic ulcer of left foot, unspecified ulcer stage (HCC) Take 1 capsule, by mouth, bid x 7 days 14 capsule Active carvedilol (Coreg) 12.5 MG tabletIndicatio ns:Primary hypertension Take 1 tablet (12.5 mg) by mouth in the morning and 1 tablet (12.5 mg) before bedtime. 60 tablet 025 2025 Active aspirin 325 MG tabletIndicatio ns:Primary hypertension Take 1 tablet (325 mg) by mouth Daily 30 tablet 025 2025 Active ferrous sulfate (Fe Tabs) 325 (65 Fe) MG EC tabletIndicatio ns:Other iron deficiency anemia Take 1 tablet (325 mg) by mouth in the morning. Take with meals. Do not crush, chew, or split. 30 tablet 025 2025 Active potassium chloride CR (K-Tab) 20 MEQ ER tabletIndicatio ns:Hypokalemia Take 1 tablet (20 mEq) by mouth Daily Do not crush, chew, or split. 360 tablet 025 2025 Active potassium chloride CR (K-Tab) 20 MEQ ER tabletIndicatio ns:Hypokalemia Take 1 tablet (20 mEq) by mouth Daily Do not crush, chew, or split. 30 tablet 11 025 2025 Active carvedilol (Coreg) 12.5 MG tablet 024 2024 Discontinued(R eorder) potassium chloride CR (K-Tab) 20 MEQ ER tabletIndicatio ns:Hypokalemia Take 1 tablet (20 mEq) by mouth Daily Do not crush, chew, or split. 360 tablet 025 2024 Discontinued Active Problems Problem Noted Date Diagnosed Date Primary open angle glaucoma (POAG) of both eyes, moderate stage 06/28/2024 Left posterior capsular opacification 06/28/2024 Mild nonproliferative diabet ic retinopathy of both eyes without macular edema associated with type 2 diabetes mellitus 06/28/2024 Dry eyes 06/28/2024 Encounters Date Type Department Care Team Description 11/23/2024 [facility] [address] [facility] 110 [place] [address] Maine Chávez, ARLETTE 11/23/2024 Telephone [facility] [address] [facility] 110 [place] [address] Arias Cruz MD 11/22/2024 Telephone [facility] [address] [facility] 110 [place] [address] Maine Chávez NP 11/02/2024 Abstract [facility] [address] [facility] 110 [place] [address] Unallocated, Katja Mccauley MD 09/27/2024 1:15 PM EDT Office Visit [facility] [address] [place] [phone] Adilson Johnson, DO Primary open angle glaucoma (POAG) of both eyes, moderate stage (Primary Dx); 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 mellitus (HCC); Left posterior capsular opacification; Dry eyes 09/27/2024 Bamboo flowsheet [facility] [address] [place] [address] Adilson Johnson, 09/27/2024 Travel 09/07/2024 Results Follow-Up [facility] [address] [place] [address] Ramona Campuzano PA Aerobic culture, RESULT from Last 3 Months Social History Tobacco [...] 12/27/2024 1:45 PM EST Office Visit [facility] [address] [place] [address] Adilson Johnson, DO [address] [place], [place] [address] Procedures Procedure Name Priority Date/Time Associated Diagnosis Comments TRINIDAD VISUAL FIELD - OU - BOTH EYES Routine 09/27/2024 1:41 PM EDT Primary open angle glaucoma (POAG) of both eyes, moderate stage from Last 3 Months Results * Trinidad [...] DO OPHTH VISUAL FIELD Final Re sult from Last 3 Months Insurance MEDICARE [facility] MEDICAID [place] Care Teams Hat Liner Relationship Specialty Start Date End Date Aamir Purcell MD PCP - General Family Medicine 08/12/22
--- OUTSIDE RECORDS SUMMARY | 2024-11-30 13:48 | XMS_ITS | Encounter Summary ---
Author Organization [facility] Address [address] [place] [address] Care Team Providers Care Coal Hauler Operator Name Role Phone Aamir Purcell MD Primary Care Provider [phone] Encounter Details Date Type Department Care Team (Late st Contact Info) Description 08/24/2024 Abstract [facility] [address] [facility] [address] [place] [address] Unallocated, [facility] [address] [place] [address] Social History Tobacco Use Types Packs/Day Years [...] 1:45 PM EST Office Visit [facility] [address] [place] [id number] Adilson Johnson, DO [address] [place] [address] documented as of this encounter Visit Diagnoses Not on filedocumented in this encounter Care Teams Coal Hauler Operator Relationship Specialty Start Date End Date Aamir Purcell MD PCP - General Family Medicine 08/12/22 documented as of this encounter
--- OUTSIDE RECORDS SUMMARY | 2024-11-30 13:48 | XMS_ITS | Clinical Summary ---
Author Organization [facility] Address [address] [place] [address] Care Team Providers Care Upper Leather Cutter Name Role Phone Aamir Purcell DO Primary Care Provider [phone] Social History Tobacco Use Types Packs/Day Years Used Date Smoking Tobacco: Never Assessed [facility] Safety & Environment Answer Date Rec orded [...] Payer (Ef fective 2004-Present) Name:Cleo Georges Member ID:[id number] Relation to Subscriber:Self Name:Cleo Georges Subscriber ID:[id number] Payer ID:[id number] Group ID:Not on file Type:Medicare Address: [facility] [place] [id number] Care Teams Upper Leather Cutter Relationship Specialty Start Date End Date Aamir Purcell DO [address] [place] [address] PCP - General 10/19/21
--- OUTSIDE RECORDS SUMMARY | 2024-11-30 13:49 | XMS_ITS | Clinical Summary ---
Author Organization [facility] Address [address] [place] [address] Care Team Providers Care Fiber Optics Supervisor Name Role Phone Aamir Purcell DO Primary Care Provider [phone] Allergies Active Allergy Reactions Criticality Noted Date [...] series) 2038 Medical Devices Implanted Type Area Print Traffic Manager Device Identifier Shelf Expiration Date Model / Serial / Lot Stent-07/27/2012 Implanted:Qty: 1 on 07/27/2012 Stent Right: Eye [employer] [id number] ISTENT / [id number] / [id number] Description:Non-clinical son ting has demonstrated that the iStent Trabecular Micro-Bypass Stent (Models [id number] and [id number]) is MR Conditional. A patient with this [...] above, the iStent Trabecular Micro-Bypass Stent (Models [id number] and [id number]) is not expected to produce a clinically significant temperature rise after 15 minutes of continuous scanning. In non-clinical testing, the image artifact caused by the device extends less than 15 mm from the device when imaged with a gradient echo pulse sequence and a 3.0 T MRI system Insurance MEDICARE PART A [place] [address] [facility] Advance Directives For more information, please contact: [phone] Documents on File Type Date Recorded Patient Sales Enablement Manager Expl anation Power of Box Packer 05/28/2021 12:09 PM Power of Box Packer 05/28/2021 12:01 PM * Full Code - Unverified (Latest Code Status on File) Date Activated Date Inactivated Comments 05/18/2021 10:06 PM 05/29/2021 7:56 PM Care Teams Fiber Optics Supervisor Relationship Specialty Start Date End Date Aamir Purcell DO [address] [place] [address] PCP - General Family Medicine 03/28/17
--- OUTSIDE RECORDS SUMMARY | 2024-11-30 13:49 | XMS_ITS | Clinical Summary ---
Author Organization [facility] Address [address] [place] [address] Phone Care Team Providers Care Hand Inserter Operator Name Role Phone Physician, Pcp Unknown Primary [...] History Medical History Date Comments Diabetes mellitus (CMS/[facility] V24, [facility] V28) Social History Tobacco Use Types Packs/Day [...] Last Done Comments Breast Cancer Screening 1963 Colorectal Cancer Screening: Colonoscopy 1963 Diabetes: Annual Foot Exam 1973 DTaP,Tdap,and Td Vaccines (1 - Tdap) 1982 Cervical Cancer Screening: Pap Smear 02/07/1984 RSV Immunization Adult Patients (1 - Risk 50-74 years 1-dose series) 2013 Zoster Vaccines (2 of 3) 12/30/2013 11/04/2013 Pneumococcal Vaccine: 50+ Years (2 of 2 - PCV) 10/06/2020 10/07/2019, 07/29/2012 HIV Screening 04/05/2021 Hepatitis C Screening 04/05/2021 [...] 04/06/2022 04/06/2021, 04/05/2021, 03/15/2021, Additional history exists Depression Screening 02/18/2024 COVID-19 Vaccine ( season) 2024 Influenza Vaccine (#1) 2024 0, [...] LAB CHEMISTRY METHOD 04/06/2021 5:31 AM EST [facility] Potassium 4.2 3.6 - 5.1 mmol/L LAB CHEMISTRY METHOD 04/06/2021 5:31 AM EST [facility] Chloride 106 98 - 107 mmol/L LAB CHEMISTRY METHOD 04/06/2021 5:31 AM EST [facility] CO2 21(L) 22 - 32 mmol/L LAB CHEMISTRY METHOD 04/06/2021 5:31 AM EST [facility] Anion Gap 9 6 - 18 LAB CHEMISTRY METHOD 04/06/2021 5:31 AM [facility] Glucose 192(H) 70 - 99 mg/dL LAB CHEMISTRY METHOD 04/06/2021 5:31 AM [facility] BUN 22(H) 8 - 20 mg/dL LAB CHEMISTRY METHOD 04/06/2021 5:31 AM [facility] Creatinine 1.06 0.60 - 1.30 mg/dL LAB CHEMISTRY METHOD 04/06/2021 5:31 AM [facility] eGFR 58 mL/min/1. 73m2 LAB CHEMISTRY METHOD 04/06/2021 5:31 AM [facility] BUN/Creatinine Ratio 20.8(H) 12.0 - 20.0 LAB CHEMISTRY METHOD 04/06/2021 5:31 AM [facility] Calcium 9.0 8.9 - 10.3 mg/dL LAB CHEMISTRY METHOD 04/06/2021 5:31 AM [facility] AST (SGOT) 14(L) 15 - 41 unit/L LAB CHEMISTRY METHOD 04/06/2021 5:31 AM [facility] ALT (SGPT) 11 7 - 52 unit/L LAB CHEMISTRY METHOD 04/06/2021 5:31 AM [facility] Alkaline Phosphatase 88 32 - 91 unit/L LAB CHEMISTRY METHOD 04/06/2021 5:31 AM [facility] Total Protein 6.3 6.1 - 7.9 g/dL LAB CHEMISTRY METHOD 04/06/2021 5:31 AM [facility] Albumin 3.4(L) 3.5 - 4.8 g/dL LAB CHEMISTRY METHOD 04/06/2021 5:31 AM [facility] Total Bilirubin 0.4 0.3 - 1.2 mg/dL LAB CHEMISTRY METHOD 04/06/2021 5:31 AM EST [facility] Blood Venous blood specimen / Unknown Venipuncture / Unknown 04/06/2021 4:22 AM EST 04/06/2021 5:03 AM EST Sin Carlson MD LAB BLOOD ORDERABLES Final Resul t Performing Organization Address City/[facility]/ZIP Co de Phone Number [facility] [address] [place] [address] * (ABNORMAL) Hemoglobin A1c (04/06/2021 12:42 AM EST) Hemoglobin A1C 11.8(H) <=5.6 % LAB CHEMISTRY METHOD 04/06/2021 12:[address] [facility] Comment: HbA1c values of 5.7-6.4 percent indicate an increased risk for developing diabetes mellitus. HbA1c values greater than or equal to 6.5 percent are diagnostic of diabetes mellitus. For diagnosis of diabetes in individuals without unequivocal hyperglycemia, results should be confirmed by repeat testing. Mean Bld Glu Estim. 292 mg/dL LAB CHEMISTRY METHOD 04/06/2021 12:[address] [facility] Blood Venous blood specimen / Unknown Venipuncture / Unknown 04/06/2021 12:42 AM EST 04/06/2021 12:50 AM EST us Sin Carlson MD LAB BLOOD ORDERABLES Final Resul t [facility] [address] [place] [address] from Last 3 Months or Most Recently Relevant to Health Maintenance Insurance MEDICARE [facility] Advance Directives * Full Code (Latest [...] currently active code status orders. Care Teams Hand Inserter Operator Relationship Specialty Start Date End Date Physician, Pcp Unknown PCP - General 04/05/21
--- OUTSIDE RECORDS SUMMARY | 2024-11-30 14:08 | XMS_ITS | CCD ---
Author Organization [facility] Care Team Providers Care Assault Amphibious Vehicle Officer Name Role Phone Neri Santa Unavailable Pili Gilliam Unavailable Reji Miramontes Unavailable Unavailable Unavailable Unavailable Luis Miguel Kaur Unavailable Neri Santa Unavailable Luis Miguel Kaur Unavailable Tihsa Arriaga Unavailable Skylar Hernandez Unavailable [phone] Kartik Mejia Unavailable Pili Gilliam Admitting [...] Attending Unavaila Neri Shah Primary Care Provider [phone] Pili Gilliam Unavailable [phone] Reji Miramontes Unavailable Neri Santa Primary Care Provider [phone] Pili Gilliam Unavailable [phone] Craske, W. Don Unavailable HOUSE, NERI P [...] Attending Unavailabl e PHYSICIAN PHYSICIAN, PCP PCP UNKNOWN~[phone] Primary Care Unavailable BANNING, KIKE Consulting Unavailable PRECIOUS, BLASE Attending Unavailable PRECIOUS, BLASE Admitting Unavailable BANNING, KIKE Consulting Unavailable BANNING, KIKE Consulting Unavailable BAUERLE, CLARISA Consulting Unavailable BAUERLE, CLARISA Consulting Unavailable BAUERLE, CLARISA Consulting Unavailable VAISHALI ERAZO Referring Unavailable PHYSICIAN PHYSICIAN, PCP PCP UNKNOWN~[phone] Primary Care Unavailable House DO, Neri P Primary Care Provider David VIVEROS, Skylar Rizo Unavailable Kartik Mejia MD Unavailable Tisha Arriaga MD Unavailable Luis Miguel Kaur MD Unavailable [phone] Lucas MERCADO, Chris A Unavailable Kartik Mejia MD Unavailable [phone] HOUSE, NERI P Primary Care Unavailable TORI HART Attending Unavailable MARIELA AHMADI, JEF Admitting Unavailable HOUSE, NERI P Primary Care Unavailable TORI HART Referring Unavailable HOUSE, NERI P Primary Care Unavailable ADRIANE, NBA TRIMBLE Admitting Unavaila ble GRIFFIN, MAC STERLING Consulting Unavailable ALAHMADRASHADA Attending Unavailable House DO, Sr Neri P Primary Care Provider [phone] House DO, Sr Neri P Primary Care Provider JERRY POZO Attending Unavailable HERCHER, JOHNY Referring Unavailable HOUSE, NERI Primary Care Unavailable JERRY POZO Admitting Unavailable KARLSO Perez Attending Provider HOUSE, NERI P Primary Care Unavailable SHARON HERNANDEZ Attending Unavailabl e SELF, SELF Referring Unavailable HOUSE, NERI P Primary Care Unavailable KEIRRA, SHARON H Attending Unavailabl e SELF, SELF [...] Unavailable Ganga Savage MD Primary Care Provider [phone] Rufus Perez Attending Unavailable Rufus Perez Admitting Unavailable Ganga Savage MD Primary Care Provider [phone] GANGA SAVAGE Primary Care Unavailable ALISIA, ALISIA VAISHALI Referring Unavailable ALISIA, ALISIA VAISHALI Referring Unavailable JANETTE GANGA E Primary Care Unavailable ALISIA, ALISIA VAISHALI Referring Unavailable JANETTE, GANGA E Primary Care Unavailable [place] Neri VIVEROS Primary Care Provider Jami Onofre [...] sources) Cephalexin Drug Allergy 04-07-19 18 Itching [facility] Opioid Agonists (3 sources) tapentadol Drug Allergy 04-07-19 18 [facility] Quinolones (antibiotic) (3 sources) moxifloxacin Drug Allergy 04-07-19 18 Itching, Swelling, Rash, Other (See Comments) [facility] (20 sources) cephalexin; Translations: [CEPHALEXIN] Propensity to adverse reactions to drug 12-02-19 12 Itching, Rash, Hives, Unknown, Swelling [facility] (20 sources) moxifloxacin; Translations: [MOXIFLOXACIN] Propensity to adverse reactions to drug 12-02-19 12 Itching, Swelling, Rash, Other (See Comments), Unknown [facility] (20 sources) tapentadol; Translations: [TAPENTADOL] Propensity to adverse reactions to drug 04-07-19 18 Unknown [facility] (20 sources) polyethylene glycol 3350 / potassium chloride / sodium bicarbonate / sodium chloride / sodium sulfate Drug Allergy 10-29-[address] [facility] Work Phone: (20 sources) tapentadol Drug Allergy 10-31-19 16 Other (See Comments) [facility] Work Phone: (3 sources) Cephalexin; Translations: [Keflex] Drug Allergy 06-23-19 10 [facility] Repository (3 sources) moxifloxacin; Translations: [Avelox] Drug Allergy 06-23-19 10 [facility] Repository (3 sources) tapentadol; Translations: [Nucynta] Drug Allergy 06-30-19 13 [facility] Repository (1 source) Bacitracin / Neomycin / Polymyxin B Drug Allergy 06-23-19 10 [facility] Repository (1 source) Calcium oxide Drug Allergy 06-23-19 10 [facility] Repository (1 source) POLYETHYLENE GLYCOL 3350 Drug Allergy 08-21-19 22 [facility] Repository (1 source) Sulfamethoxazole / Trimethoprim Drug Allergy 06-23-19 10 [facility] Repository (1 source) fentaNYL; Translations: [fentaNYL] [...] [facility] Repository (12 sources) Tapentadol hydrochloride Allergy to substance 02-05-20 [...] (LIST CLEANUP) albuterol 0.83 mg/ml inhalation solution (12 sources) beta2-Adrenergic Agonist albuterol (2.5 MG/3ML) 0.083% nebulizer solution Take 3 mL by nebulization every 4 (four) hours if needed Active amitriptyline hydrochloride 25 mg oral tablet (19 sources) Tricyclic Antidepressant End: 12-20-2019 amitriptyline (Elavil) 25 MG tablet Take 1 tablet as needed by oral route. Active aspirin 325 mg oral tablet (20 sources) Nonsteroidal Anti-inflammatory Drug Start: 11-22-2024 End: 11-22-2025 take 1 tablet by mouth once daily aspirin 325 MG tablet Indications: Primary hypertension Take 1 tablet (325 mg) by mouth Daily 30 tablet 11 11/22/2024 11/22/2025 Active Start: 06-30-2021 take 81 mg by mouth [...] 81 mg by mouth daily. 04/07/2017 Discontinued bisacodyl 10 mg rectal suppo sitory (3 sources) Stimulant Laxative Start: 07-29-2021 End: [...] 07-20-2021 Start: 07-15-2021 take 2 tablets by [facility] once daily calcium carbonate-vitamin D3 (CALTRATE) 600-400 MG-UNIT TABS per tab Take 2 tablets by mouth daily 60 tablet 1 07/20/2021 Active carvedilol 12.5 mg oral tablet (20 sources) alpha-Adrenergic Chemo, beta-Adrenergic Chemo Start: 07-17-2023 End: 11-17-2025 take 1 tablet by mouth in the morning carvedilol (Coreg) 12.5 MG tablet Indications: Primary hypertension Take 1 tablet (12.5 mg) by mouth in the morning and 1 tablet (12.5 mg) before bedtime. 60 tablet 11 11/22/2024 11/17/2025 Active Start: 06-29-2021 End: 06-29-2021 take 1 [...] Active doxycycline monohydrate 100 mg oral capsule (20 sources) Tetracycline-class Drug Start: 08-27-2024 take 1 [...] DULoxetine 60 mg delayed release oral capsule (12 sources) Serotonin and Norepinephrine Reuptake Inhibitor take 1 capsule by mouth once daily DULoxetine (Cymbalta) [address] capsule Take 1 capsule by mouth Daily Active ezetimibe 10 mg oral tablet (7 sources) Dietary Cholesterol Absorption Inhibitor Start: take 1 tablet by mouth once [...] IV to PO change per P&T policy ferrous sulfate 325 mg delayed release oral tablet (3 sources) Start: 11-22-2024 End: 11-22-2025 take 1 tablet by mouth at mealtime ferrous sulfate (Fe Tabs) 325 (65 Fe) MG EC tablet Indications: Other iron deficiency anemia Take 1 tablet (325 mg) by mouth in the morning. Take with meals. Do not crush, chew, or split. 30 tablet 11 11/22/2024 11/22/2025 Active fluocinonide 0.0005 mg/mg topical ointment (3 sources) Corticosteroid Start: 08-19-2023 End: 08-18-2024 fluocinonide (Lidex) 0.05 % ointment Indications: Other atopic dermatitis Apply topically 2 (two) times a day as needed for rash 180 g 11 08/19/2023 08/18/2024 Active Freestyle Juanpablo 14 Day [place] Essie (5 sources) Start: 01-05-2018 End: 01-05-2018 Freestyle Juanpablo 14 Day Senso r Misc (6 sources) Start: 01-20-2018 Start: 01-05-2018 End: 01-20-2018 Start: 01-05-2018 End: 01-05-2018 glipiZIDE 10 mg oral tablet (20 sources) Sulfonylurea glipiZIDE (Gluco trol) 10 MG [...] UNIT/ML Solution Pen-injector injection 3 samples given--Lot [id number], exp 10/2021 3 Prefilled Pen/Syringe 0 06/23/2020 [...] injector (20 sources) Insulin Analog Start: 08-15-2023 Sarahi Scott en 100 UNIT/ML pen 08/15/2023 Active Start: [...] at 0203, Until 07/28/21 at 0206 Helen Levine A: cabinet override Helen Levine: cabinet override Start: 07-28-2021 2 mg, IntraVEN ous, EVERY 4 HOURS PRN, Starting on 07/28/21 at 0201, Until Discontinued, Anxiety Start: 07-27-2021 End: 07-27-2021 2 mg, IntraVENous, ONCE, 1 d ose, On Fri07/27/21 at 2045 Start: 07-24-2021 End: 07-24-2021 0.5 mg, IntraVENous, ONCE, 1 dose, On Tu07/24/21 at 1015 Start: 07-04-2021 End: 07-04-2021 0.5 mg, IntraVENous, ONCE, 1 dose, On Fri07/04/21 at 1845 meclizine hydrochloride 25 mg oral tablet (12 sources) Antiemetic Start: 04-15-2024 meclizine (Antivert) 25 [...] omeprazole 40 mg delayed release oral capsule (12 sources) Proton Pump Inhibitor Start: 08-08-2023 omeprazole [...] mouth daily. 90 tablet 1 07/21/2017 Active potassium chloride 20 meq extended release oral tablet (20 sources) Start: 11-23-2024 End: 11-23-2025 take 1 tablet by mouth once daily potassium chloride CR (K-Tab) 20 MEQ ER tablet Indications: Hypokalemia Take 1 tablet (20 mEq) by mouth Daily Do not crush, chew, or split. 360 tablet 11/23/2024 11/23/2025 Active Start: 08-05-2021 End: 08-05-2021 40 mEq, Oral, [...] on Fri06/29/21 at 1400, at 100 mL/hr QUEtiapine 25 mg oral tablet (7 sources) [...] 0 Active sucralfate 100 mg/ml oral suspension (12 sources) Aluminum Complex Start: sucralfate (Carafate) 1 GM/10ML suspension 08/15/2023 Active [...] 10/16/2017 Active take 1 capsule by mo uth once daily levothyroxine (Tirosint) 112 MCG capsule [...] Active traMADol hydrochloride 50 mg oral tablet (12 sources) Opioid Agonist Start: 11-04-2023 traMADol (Ultram) 50 MG tablet 11/04/2023 Active triamcinolone acetonide 1 mg/ml topical cream (8 sources) Corticosteroid Start: 08-27-2024 triamcinolone (Kenalog) 0.1 % cream Indications: Other atopic dermatitis Apply (1g) to the affected areas (feet), up to twice a day when flared, do not use one the face, groin, or underarms, 30 day supply 80 g 08/27/2024 Active 24 hr divalproex sodium 500 mg extended release oral tablet (18 sources) Mood Stabilizer, Anti-epileptic Agent Start: 08-06-2023 [...] Start: 03-05-2018 take 1 capsule by mo ut once daily VITAMIN B COMPLEX-C CAPS Take 1 capsule by mouth daily 0 03/05/2018 Active zonisamide 100 mg oral capsule (19 sources) Anti-epileptic Agent End: 12-20-2019 take 1 [...] ORCO) 5-325 MG per tablet 1 tablet azithromycin (ZITHROMAX) 500 mg in D5W 250ml [...] 20 mg/ml oral suspension (1 source) Uncompetitive O-qmkimo-W-aspartate Receptor Antagonist, Sigma-1 Agonist Start: 07-14-2021 End: [...] mg docusate sodium 50 mg / sennosides, skilled nursing 8.6 mg oral tablet (1 source) Start: [...] override Jess Ventura: cabinet override Freestyle Juanpablo [place] Essie (5 sources) Start: 04-21-2017 End: 01-07-2018 Continuous Blood Gluc Proof Inspector (FREESTYLE JUANPABLO READER) Device Indications: Type 2 diabetes mellitus with diabetic polyneuropathy, without long-term current use of insulin Apply 1 Device topically As directed. Use to download subcutaneous glucose monitor data at least four times daily 1 Device 3 04/21/2017 01/07/2018 Discontinued Start: 04-21-2017 Continuous Blo od Gluc Proof Inspector (FREESTYLE JUANPABLO READER) Device Indications: Type 2 [...] TIMES DAILY WITH MEALS, First dose on [place] 07/22/21 at 0845, Until Discontinued Medium Dose [...] TIMES DAILY WITH MEALS, First dose on [facility] 06/28/21 at 1700, Until Discontinued Medium Dose Corrective Algorithm Glucose: Dose: If <139 &nb sp; No Insulin 140-199 2 Units 200-249 4 Units 250-299 6 Units 300-349 8 Units 350-400 10 Units Above 400 12 Units Start: 06-23-2020 End: 09-28-2020 Insulin Lispro, 1 Unit Dial, (HumaLOG KwikPen) 100 UNIT/ML Solution Pen-injector Sample given [id number], 3 mL 0 09/13/2020 09/28/2020 Discontinued (Therapy [...] <60, or SBP <120 lactobacillus rhamnosus gg 2 [id number] unt oral capsule (6 sources) Start: 07-11-2021 [...] 08-04-2021 30 mL, Per NG tube, DAILY CO N, Starting on Fri08/04/21 at 0800, Until [...] mL/hr, Administer over 2 Hours, ONCE, On Fri06/28/21 at 1445, For 1 dose Recommended infusion [...] Discontinued (Error) take 2 tablets by mo [facility] twice daily metoprolol 25 MG tab regular [...] further dilute if GI adverse effects occur. 2 ml prochlorperazine 5 mg/ml injection (1 [...] 07/02/21 at 1157, Until Discontinued, Muscle spasms tiZANidine [...] L/hr, Administer over 30 Minutes, ONCE, On Fri06/30/21 at 1315, For 1 dose Start: 06-30-2021 [...] Coronary atherosclerosis; Translations: [Atherosclerotic heart disease of [place] coronary artery without angina pectoris] Onset: 3 01-22-2018 Chronic Deficiency and other anemia (4 sources) Anemia due to blood loss; Translations: [Iron deficiency anemia secondary to blood loss (chronic)] Onset: 2 09-26-2021 Chronic Deficiency and other anemia (6 sources) Normocytic anemia; Translations: [Anemia, unspecified] Episodic Deficiency and other anemia (1 source) Iron deficiency anemia; Translations: [Other iron deficiency anemias] 11-22-2024 Episodic Delirium, dementia, and amnestic and other [...] Translations: [Hypertensive disorder] Onset: 6 10-10-2017 Chronic Fluid and electrolyte disorders (12 sources) Hypokalemia; Translations: [Hypokalemia] Onset: 2 Episodic Gastrointestinal hemorrhage (8 sources) Upper gastrointestinal bleeding; [...] aftercare (20 sources) Patient encounter status; Translations: [wool washer (current) use of non-steroidal anti-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 (NSAID)] Onset: 8 01-22-2018 Episodic Other aftercare (1 source) Long-term current use of antibiotic; Translations: [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] Episodic Other PRESSURIZATION MECHANIC infection and poliomyelitis (9 sources) Abscess in [...] Translations: [Anemia, unspecified] Onset: 01-22-2018 01-22-2018 Episodic Fracture of lower limb (20 sources) [...] Translations: [Arthrodesis status] Onset: 04-02-2022 Episodic Other eye disorders (14 sources) Dry eyes; Translations: [Dry eye syndrome of bilateral lacrimal glands] Onset: 06-28-2024 06-28-2024 Episodic Other injuries and conditions due to [...] Interpretation Reference Range Facility Perimetry studyon 09-27-2024 [facility] Radiology Study observation (narrative) [facility] Aerobic cultureon 09-06-2024 Microorganism or agent identified Nom (Unsp spec) Final report Abnormal [facility] No Panel Informationon 09-06 Interpretation and review of laboratory results Abnormal [facility] Performed at: [facility] [id number] Smasher Hand: Angel Jacobs PhD, Phone: [phone] [facility] RESULTon 09-06-2024 Bacteria identified Cx Nom (Unsp spec) Comment Abnormal [facility] Comment on above: Enterobacter cloacae complex Some Enterobacterales may develop resistance during therapy with third-generation cephalosporins. This resistance is most commonly seen with Citrobacter freundii complex, Enterobacter cloacae complex, and Klebsiella aerogenes. Isolates that initially test susceptible may become resistant within a few days after initiation of therapy. Testing subsequent isolates may be warranted if clinically indicated. (CLSI P017-Kv86) Light growth Bacteria identified Cx Nom (Unsp spec) Staphylococcus aureus Abnormal [facility] Comment on above: Based on susceptibil ity [...] Heavy growth Other Antibiotic [Susc] Comment [facility] Comment on above: S = Susceptible; I [...] Tobramycin S Trimethoprim/Sulfa S S Vancomycin S [facility] SEGMENTAL BLOOD PRESSUREon 08-10-2024 [place] [address] Cardiology Report Signed Patient: MEG GEORGES MR#: [id number] : 1965 Acct:[id number] Age/Sex: 59 / F ADM Date: 08/10/24 Loc: CARD Attending Dr: Kailee CESPEDES Ordering Physician: Kailee Lopez Date of Service: 08/10/24 Procedure(s): CA segmental UE or LE SAMANTHA Accession Number(s): [id number] cc: MAHIN BERNAL [facility] Test Date: 2024-08-10 Pat Name: MEG GEORGES Department: Room: - Gender: Female Director Of Research And Development: : 1965 Requested By: Kailee Lopez Order Number: [id number] Zack MD: FELIPA ALANIS M.D. Interpretive Statements [...] ALANIS Signed By: 08/10/24220608/10/242206 DD/ 1548 TD/TT: Hearing Aid Specialist: [facility] Radiology, Radiologist, - 08/10/2024 [place] [address] Cardiology Report Signed Patient: MEG GEORGES MR#: [id number] : 1965 Acct:[id number] Age/Sex: 59 / F ADM Date: 08/10/24 Loc: CARD Attending Dr: Kailee CESPEDES Ordering Physician: Kailee Lopez Date of Service: 08/10/24 Procedure(s): CA segmental UE or LE SAMANTHA Accession Number(s): [id number] cc: MAHIN BERNAL [facility] Test Date: 2024-08-10 Pat Name: MEG GEORGES Department: Room: - Gender: Female Director Of Research And Development: : 1965 Requested By: Kailee Lopez Order Number: [id number] Reading MD: FELIPA ALANIS M.D. Interpretive Statements [...] By: FELIPA ALANIS Signed By: 08/10/24220608/10/242206 DD/ 47 TD/TT: Hearing Aid Specialist: [facility] Radiology Study observation (narrative) [facility] SEGMENTAL BLOOD PRESSUREOrde red By: Radiologist Radiology on 08-10-2024 [facility] Work Phone: XR FOOT SAMANTHA MIN [address] [place] [address] XRay Report Signed Patient: MEG GEORGES MR#: [id number] : 1965 Acct:[id number] Age/Sex: 59 / F ADM Date: 08/10/24 Loc: CARD Attending Dr: Kailee CESPEDES Ordering Physician: Kailee Lopez Date of Service: 08/10/24 Procedure(s): XR foot SAMANTHA min 3V Accession Number(s): [id number] cc: MAHIN BERNAL ; Kailee Lopez [place] [address] Patient Name: MEG GEORGES MRN: [id number] date: 1965 Sex: F Assigned Patient Location: CARD Current Patient Location: CARD Accession/Order Number: [id number] Exam Date: 08/10/2024 11:59 Report Date: 08/10/2024 [...] Crews M.D. 08/10/2024 12:04 PM Dictation Location: [place] [address] Electronically authenticated by: [id number] Y Date: 08/10/2024 12:04 Dictated By: Misa Crews M.D. Signed By: 08/10/24 1207 DD/ 1204 TD/TT: Hearing Aid Specialist: [facility] Radiology, Radiologist, - 08/10/2024 The [place] [id number] XRay Report Signed Patient: MEG GEORGES MR#: [id number] : 1965 Acct:[id number] Age/Sex: 59 / F ADM Date: 08/10/24 Loc: CARD Attending Dr: Kailee CESPEDES Ordering Physician: Kailee Lopez Date of Service: 08/10/24 Procedure(s): XR foot SAMANTHA min 3V Accession Number(s): [id number] cc: MAHIN BERNAL ; Kailee Lopez The [address] [address] Patient Name: MEG GEORGES MRN: [id number] date: 1965 Sex: F Assigned Patient Location: CARD Current Patient Location: CARD Accession/Order Number: [id number] Exam Date: 08/10/2024 11:59 Report Date: 08/10/2024 [...] Crews M.D. 08/10/2024 12:04 PM Dictation Location: [place] [address] Electronically authenticated by: [id number] Y Date: 08/10/2024 12:04 Dictated By: Misa Crews M.D. Signed By: 08/10/24 1207 DD/ 1204 TD/TT: Hearing Aid Specialist: [facility] Radiology Study observation (narrative) [facility] XR FOOT SAMANTHA MIN 3 VIEWSOrder ed By: Radiologist Radiology on 08-10-2024 [facility] Work Phone: Ophthalmic OCT panelon 06-30 [facility] Right Eye Images reviewed and comparison made to baseline, Images reviewed. To assess optic nerve function and for use in future follow-up. Reliability: good and adequate. Left Eye Images reviewed and comparison made to baseline, Images reviewed. To assess optic nerve function and for use in future follow-up. Reliability: good and adequate. 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 [facility] Ophthalmic OCT panelon 06-28 Radiology Study observation (narrative) [facility] ED Note-Physicianon 04-18-19 ED Note-Physician ED [...] for 3 day(s), 15 tab(s), Refill(s) 0, [facility] #[id number], 165.1, cm, 04/16/24 10:29:00 EST, Height/Length [...] made to ensure accuracy, however, inadvertently computerized clam treader mistakes may be present. Appropriate healthcare PPE [...] 2024 ED Clinical Summary ED Clinical Summary [place] [id number] ED Clinical Summary Person Information Name: MEG GEORGES [facility] Age: 59 Years : 1965 Sex: Female Language: Omani PCP: Jami Payne Marital Status: Visit Id: [...] 04/16/2024 14:34:45 04/16/2024 14:34:45 04/16/2024 14:34:45 ADDRESS: [address] [place] [address] [place] [phone] PHYS DOC NOTES: MEDICAL INFORMATION: Prescriptions Given: New Medications [id number], [address], [place] [id number], [phone] acetaminophen-oxycodo ne (Percocet 5 mg-325 mg oral [...] 025 ED Patient Summary ED Patient Summary [place] [id number] Patient Discharge Instructions Person Information Name: MEG GEORGES Age: 59 Years Arrival Date: 04/16/2024 10:20:31 Discharge Diagnosis: Back pain; Fall Primary Care Physician: Jami Payne Provider Information Primary Provider: Garfield Rodriguez DO Advanced Director Of Religious Activities:Jeff Clancy PA-C The exam and treatment you received in the Emergency Department were for an urgent problem and are not intended as complete care. It is important that you follow up with a doctor, nurse practitioner, or physician???s bilingual office assistant for ongoing care. If your symptoms [...] opioids can be used to help relieve fggusosp-zx-cxcnbh pain and are often prescribed following a [...] be struggling with addiction, tell your health assisted living care manager and ask for guidance or call [facility]???S [facility] Helpline at [phone]. v S (more content not included)... [facility] Pre-Arrival Noteon Pre-Arrival Note Pre-Arrival Note Pre-Arrival Summary Name: , wilfred Current Date: 04/16/2024 10:22:29 EST Gender: Female Date of : Age: 60 Pre-Arrival Type: EMS ETA: 04/16/2024 10:38:00 EST Primary Care Physician: Presenting Problem: fall Pre-Arrival User: Shirin Miller RN Referring Source: Location: [place] Completion Date/Time: 04/16/2024 10:09:00 [facility] Emergency Department Pre-Hospital Report Form Vital [...] checking your blood sugars? _? resides at [facility] Do you have any of the following symptoms? Vision problems? no? Lightheadedness? no? Paresthesias, Ulcerations or sores? no? Patient is here for follow up on Thyroid Disease. Do you have any of the following symptoms? Change in energy level? no Weight change? no Heat/cold intolerance? no Hair/skin/nail changes? no Change in bowels? no Last TSH: [facility] to have labs completed prior to [...] Due Date/Time: 11/20/2023 11:04:00 EDT Caller Name: JOHN GEORGESUDY Jemal; Caller Number: , Dorian Farrell. During a pre-visit planning chart [...] feel free to contact me at extension [phone]. Thank you! Mai Wilkins LPN Clinical Journeyman [place] [address] Extension: [phone] [email or web address] From: Jami Payne To: Mai Wilkins; Sent: 11/21/2023 08:41:15 EDT Subject: RE: Pre-Visit Planning Caller Name: MEG GEORGES; Caller Number: Cynthia , Sallie major depressive disorder, recurrent moderate Normal [facility] Family Medicine Office/Clini c Noteon 10-24-2023 Family Medicine Office/Clinic Note Family Medicine Office/Clinic Note HPI Staff Meg is a 58 year old female presenting with D/C'd from [facility] on 10/21/23 Is currently at [facility] Establish Care: History: Any previous diagnosis: Diabetes, [...] today to establish care. recently moved to [facility] from [facility] Review of Systems PHQ Score Initial [...] panel ordered 2. Long-term insulin use (Z79.4: senior care (current) use of insulin) HGBA1C ordered 3. [...] being treated for this with infusions in [place]. she was warned about the risks of [...] pain, # 30 tab(s), Refills(s) 0, [facility]acy: [facility], 165, cm, 10/24/23 13:15:00 EDT, Height/Length Dosing, [...] feel free to contact me at extension [phone]. Thank you! Mai Wilkins LPN [employer] [place] [address] Extension: [phone] [email or web address] From: Jami Payne To: Mai Wilkins; [...] feel free to contact me at extension [phone]. Thank you! Mai Wilkins LPN [employer] [place] [address] Extension: [phone] [email or web address] From: Jami Payne To: Mai Wilkins; Sent: 10/23/2023 12:43:08 EDT Subject: RE: Pre-Visit Planning Caller Name: MEG GEORGES; Caller Number: Sallie chronic kidney disease stage 3a Normal [facility] [...] feel free to contact me at extension [phone]. Thank you! Mai Wilkins LPN [employer] [place] [address] Extension: [phone] [email or web address] From: Jami Payne To: Mai Wilkins; Sent: 10/23/2023 10:45:18 EDT Subject: RE: Pre-Visit Planning Caller Name: MEG GEORGES; Caller Number: M will determine during visit. thank you Normal [...] feel free to contact me at extension [phone]. Thank you! Mai Wilkins LPN [employer] [address] [address] Extension: [phone] [email or web address] Normal [facility] Physician Orderon 05-27-2023 Physician Order [id number] Normal [facility] Respiratory Panel by PCRon 0 05-27-2023 Adenovirus DNA CAL+non-probe Ql (Nph) Not detected Normal [facility] Comment on above: Order Comment: per charanjit Donaldson had talked to [place] earlier in the day and they want the swab placed into the media to run the specimen [id number] 05/27/2023 17:26:25 EDT Result Comment: Test ing was performed using nucleic acid amplification including Influenza A, Influenza A H1, Influenza A H3, Influenza B, RSV A, RSV B, Adenovirus, Human Metapneumovirus, Parainfluenza 1,2,3, and 4, Rhinovirus, Bordetella parapertussis/bronchiseptica, Bordetella holmesii, and Bordetella pertussis. Performed By: #### 1 [id number] ####[facility] [address] [place] [address] B. parapertussis DNA CAL+probe Ql (Upper resp) Not detected Normal Not Detected [facility] Comment on above: Order Comment: per charanjit Donaldson had talked to [place] earlier in the day and they want the swab placed into the media to run the specimen [id number] 05/27/2023 17:26:25 EDT Performed By: #### 1 [id number] ####[facility] [address] [place] [address] B. pertussis DNA CAL+probe Ql (Upper resp) Not detected Normal Not Detected [facility] Comment on above: Order Comment: charanjit Zaidi had talked to [place] earlier in the day and they want the swab placed into the media to run the specimen [id number] 05/27/2023 17:26:25 EDT Performed By: #### 1 [id number] ####[facility] [address] [place] [address] FLUAV H1 RNA CAL+non-probe Ql (Nph) Not detected Normal [facility] Comment on above: Order Comment: per charanjit Donaldson had talked to [place] earlier in the day and they want the swab placed into the media to run the specimen [id number] 05/27/2023 17:26:25 EDT Performed By: #### 1 [id number] ####[facility] [address] [place] [address] FLUAV H3 RNA CLA+non-probe Ql (Nph) Not detected Normal [facility] Comment on above: Order Comment: charanjit Zaidi had talked to [place] earlier in the day and they want the swab placed into the media to run the specimen [id number] 05/27/2023 17:26:25 EDT Performed By: #### 1 [id number] ####[facility] [address] [place] [address] FLUAV RNA CAL+non-probe Ql (Nph) Not detected Normal [facility] Comment on above: Order Comment: per charanjit Donaldson had talked to [place] earlier in the day and they want the swab placed into the media to run the specimen [id number] 05/27/2023 17:26:25 EDT Performed By: #### 1 [id number] ####[facility] [address] [place] [address] FLUBV RNA CAL+non-probe Ql (Nph) Not detected Normal [facility] Comment on above: Order Comment: charanjit Zaidi had talked to [place] earlier in the day and they want the swab placed into the media to run the specimen [id number] 05/27/2023 17:26:25 EDT Performed By: #### 1 [id number] ####[facility] [address] [place] [address] Human Metapneumovirus Not detected Normal [facility] Comment on above: Order Comment: per charanjit Donaldson had talked to [place] earlier in the day and they want the swab placed into the media to run the specimen [id number] 05/27/2023 17:26:25 EDT Result Comment: This test result should be correlated with clinical presentations and medical history by a healthcare provider to determine its clinical significance. Performed By: #### 1 [id number] ####[address] [address] Parainfluenza virus 1 RNA CAL+non-probe Ql (Nph) Not detected Normal [facility] Comment on above: Order Comment: per malvin Hintonncharanjit had talked to [place] earlier in the day and they want the swab placed into the media to run the specimen [id number] 05/27/2023 17:26:25 EDT Performed By: #### 1 [id number] ####[facility] [address] [place] [address] Parainfluenza virus 2 RNA CAL+non-probe Ql (Nph) Not detected Normal [facility] Comment on above: Order Comment: per malvin Hintonncharanjit had talked to [place] earlier in the day and they want the swab placed into the media to run the specimen [id number] 05/27/2023 17:26:25 EDT Performed By: #### 1 [id number] ####[facility] [address] [place] [address] Parainfluenza virus 3 RNA CAL+non-probe Ql (Nph) Not detected Normal [facility] Comment on above: Order Comment: per malvin Hintonncharanjit had talked to [place] earlier in the day and they want the swab placed into the media to run the specimen [id number] 05/27/2023 17:26:25 EDT Performed By: #### 1 [id number] ####[facility] [address] [facility] [place] [address] Parainfluenza virus 4 RNA CAL+non-probe Ql (Nph) Not detected Normal [facility] Comment on above: Order Comment: charanjit Zaidi had talked to [place] earlier in the day and they want the swab placed into the media to run the specimen [id number] 05/27/2023 17:26:25 EDT Performed By: #### 1 [id number] ####[facility] [address] [facility] [place] [address] Resp Panel Intrl QC Pass Normal [facility] Comment on above: Order Comment: per charanjit Donaldson had talked to [place] earlier in the day and they want the swab placed into the media to run the specimen [id number] 05/27/2023 17:26:25 EDT Performed By: #### 1 [id number] ####[facility] [address] [facility] [place] [address] Rhinovirus+Enterovirus RNA CAL+non-probe Ql (Nph) Not detected Normal [facility] Comment on above: Order Comment: per charanjit Donaldson had talked to [place] earlier in the day and they want the swab placed into the media to run the specimen [id number] 05/27/2023 17:26:25 EDT Performed By: #### 1 [id number] ####[facility] [address] [facility] [place] [address] RSV RNA CAL+non-probe Ql (Nph) Detected Abnormal [facility] Comment on above: Order Comment: per charanjit Donaldson had talked to [place] earlier in the day and they want the swab placed into the media to run the specimen [id number] 05/27/2023 17:26:25 EDT Performed By: #### 1 [id number] ####[facility] [address] [facility] [place] [address] [facility] CBC W/ AUTO DIFFon 02- Basophils (Bld) [#/Vol] 0.0 10*3/uL [facility] Basophils/100 WBC (Bld) 0.2 % 0.0 - 2.0 % [facility] EOS ABSOLUTE 0.9 High [facility] Eosinophils/100 WBC (Bld) 7.7 % 0.0 - 8.0 % [facility] Erythrocyte distribution width (RBC) [Ratio] 14.1 % 10.9 - 14.2 % [facility] Hematocrit (Bld) [Volume fraction] 32.0 % Low 34.0 - 46.0 % [facility] Hemoglobin (Bld) [Mass/Vol] 10.3 g/dL Low [facility] Interpretation and review of laboratory results Abnormal [facility] LYMPH ABSOLUTE 2.5 [facility] Lymphocytes/100 WBC (Bld) 22.1 % 14.0 - 50.0 % [facility] MCH (RBC) [Entitic mass] 30.0 pg 27.0 - 34.0 pg [facility] MCHC (RBC) [Mass/Vol] 31.9 g/dL [facility] MCV (RBC) [Entitic vol] 94.1 fL 80.0 - 100.0 fL [facility] MONO ABSOLUTE 1.0 [facility] Monocytes/100 WBC (Bld) 9.2 % 4.0 - 14.0 % [facility] NEUTRO ABSOLUTE 6.8 [facility] NEUTRO AUTO 60.8 % 36.0 - 75.0 % [facility] Platelet mean volume (Bld) [Entitic vol] 7.5 fL 6.4 - 10.8 fL [facility] Platelets (Bld) [#/Vol] 270.0 10*3/uL [facility] RBC (Bld) [#/Vol] 3.4 10*6/uL Low [facility] WBC (Bld) [#/Vol] 11.3 10*3/uL High [facility] Original Ordering Provider: MD RUFUS SMILEY [facility] CT CERVICAL SPINE WO CONTRAS Ton [...] to 8 to 9 mm compatible with nkbd-lc-ynvmnigh central stenosis. No neural foraminal stenosis. C3-C4: [...] Chance Hugo DO 11/23/22 Final result Normal [facility] XR CERVICAL SPINE (4-5 VIEWS )on [...] Clark Veliz MD 04/03/[address] [facility] Prior dens fracture with posterior fixation at C1-2 without complication. Multilevel degenerative facet hypertrophy. [facility] RIS CONSOLIDATED EXAMINATION: 4 XRAY VIEWS [...] The lung apices are without acute process. [facility] CONSOLID[facility] Clark Veliz MD - 04/03/2022 EXAMINATION: [...] C1-2 without complication. Multilevel degenerative facet hypertrophy. [employer] Phone: XR CERVICAL SPINE (4-5 VIEWS )Ordered By: Clark Veliz on 04-03-2022 [employer] Phone: XR CERVICAL SPINE (4-5 VIEWS )on 04-02-2022 Radiology Study observation (narrative) [employer] Phone: XR CERVICAL SPINE FLEXION AN D EXTENSIONon 12-06-2021 Similar angulated pathologic dens fracture with posterior fixation C1-C2. [facility] CONSOLIDATED EXAMINATION: 2 XRAY VIEWS OF THE [...] is a tracheostomy tube in place. Similar fneq-st-fmyluryk degenerative changes lower cervical spine. No localized prevertebral soft tissue swelling. [facility] CONSOL[facility] Jose Chan MD - 12/06/2021 EXAMINATION: [...] is a tracheostomy tube in place. Similar vpgp-fy-krzekylf degenerative changes lower cervical spine. No localized prevertebral soft tissue swelling. IMPRESSION: Similar angulated pathologic dens fracture with posterior fixation C1-C2. ARASELI CRUZ [employer] Phone: XR CERVICAL SPINE FLEXION AN D EXTENSIONOrdered By: Jose Chan on 12-06-2021 ARASELI CRUZ [employer] Phone: XR CERVICAL SPINE FLEXION AN D EXTENSIONon 12-04-2021 Radiology Study observation (narrative) ARASELI WOLF [employer] Phone: Basic Metabolic Panelon 10-0 Anion gap [Moles/Vol] 15.1 mmol/L High 6.0-15.0 [facility] Comment on above: Performed By: #### C BC, BMP #### [address] Calcium [Mass/Vol] 9.6 mg/dL Normal 8.2-10.2 [facility] Comment on above: Result Comment: PERF ORMED BY: [place] [address] PATHOLOGIST DIRECTOR OF BUSINESS APPLICATIONS ALEYDA GUERRIER M.D. Performed By: #### C BC, BMP #### [address] Chloride [Moles/Vol] 97 mmol/L Normal 95-114 [facility] Comment on above: Performed By: #### C BC, BMP #### [facility] [address] CO2 [Moles/Vol] 25.4 mmol/L Normal 22.0-30.0 [facility] Comment on above: Performed By: #### C BC, BMP #### [facility] [address] Creatinine [Mass/Vol] 0.82 mg/dL Normal 0.44-1.03 [facility] Comment on above: Performed By: #### C BC, BMP #### [facility] [address] [place] [address] [place] Estimated GFR ( [place]ita > 60 Normal [facility] Comment on above: Result Comment: GFR estimated reference range: According to KDOQI guidelines, <60 ml/min/1.73m2 is sufficient to diagnose a patient with chronic kidney disease. Performed By: #### C BC, BMP #### [facility] [address] [place] [address] [place] Estimated GFR (Non- Am > 60 [facility] Comment on above: Performed By: #### C BC, BMP #### [facility] [address] [place] [address] [place] Glucose [Mass/Vol] 105 mg/dL High 70-100 [facility] Comment on above: Result Comment: [place] Glucose Reference Range is dependent on time and content of last meal. Glucose of more than 200 mg/dL in a nonstressed, ambulatory subject supports the diagnosis of Diabetes Mellitus. ADA recommended reference range Performed By: #### C BC, BMP #### [address] Potassium [Moles/Vol] 4.5 mmol/L Normal 3.5-5.1 [facility] Comment on above: Performed By: #### C BC, BMP #### [place] [address] [place] Sodium [Moles/Vol] 133 mmol/L Low 136-146 [facility] Comment on above: Performed By: #### C BC, BMP #### [place] [address] [place] Urea nitrogen [Mass/Vol] 31 mg/dL High 9-23 [facility] Comment on above: Performed By: #### C BC, BMP #### [place] [address] [place] Basophils Auto (Bld) [#/Vol] Ordered By: Rufus Perez on 11-22-2021 Basophils (Bld) [#/Vol] 0.0 10*3/uL 0.0-0.2 [facility] Basophils/100 WBC Auto (Bld) Ordered By: Rufus Perez on 11-22-2021 Basophils/100 WBC (Bld) 0.3 % . [facility] Blood hemoglobin measurement (mass/volume)Ordered By: Rufus Chris on 11-22-2021 Hemoglobin (Bld) [Mass/Vol] 10.1 g/dL 11.8-15.4 [facility] Blood leukocytes automated c ount (number/volume)Ordered By: Rufus Chris on 11-22-2021 WBC (Bld) [#/Vol] 12.2 10*3/uL 4.5-11.0 [facility] Complete Blood Count Auto Di ffon 11-22-2021 Basophils (Bld) [#/Vol] 0.0 10*3/uL Normal 0.0-0.2 [facility] Comment on above: Result Comment: PERF ORMED BY: [place] [address] PATHOLOGIST DIRECTOR OF BUSINESS APPLICATIONS ALEYDA GUERRIER M.D. Performed By: #### C BC, BMP #### [address] Basophils/100 WBC (Bld) 0.3 % Normal . [facility] Comment on above: Performed By: #### C BC, BMP #### [facility] [address] [place] [address] [place] Eosinophils (Bld) [#/Vol] 0.2 10*3/uL Normal 0.0-0.45 [facility] Comment on above: Performed By: #### C BC, BMP #### [place] [address] [place] Eosinophils/100 WBC (Bld) 2.0 % Normal . [facility] Comment on above: Performed By: #### C BC, BMP #### [address] Erythrocyte distribution width (RBC) [Ratio] 19.2 % High 11.9-15.3 [facility] Comment on above: Performed By: #### C BC, BMP #### [address] Hematocrit (Bld) [Volume fraction] 32.0 % Low 34.0-46.4 [facility] Comment on above: Performed By: #### C BC, BMP #### [facility] [address] Hemoglobin (Bld) [Mass/Vol] 10.1 g/dL Low 11.8-15.4 [facility] Comment on above: Performed By: #### C BC, BMP #### [facility] [address] Lymphocytes (Bld) [#/Vol] 2.2 10*3/uL Normal 1.00-4.8 [facility] Comment on above: Performed By: #### C BC, BMP #### [facility] [address] Lymphocytes/100 WBC (Bld) 18.2 % Normal . [facility] Comment on above: Performed By: #### C BC, BMP #### [facility] [address] MCH (RBC) [Entitic mass] 27.0 pg Normal 24.7-34.3 [facility] Comment on above: Performed By: #### C BC, BMP #### [facility] [address] MCV (RBC) [Entitic vol] 85.7 fL Normal 80-100 [facility] Comment on above: Performed By: #### C BC, BMP #### [facility] [address] Mean Corpuscular HGB Conc 31.5 g/dL Low 32.0-35.0 [facility] Comment on above: Performed By: #### C BC, BMP #### [facility] [address] [place] [address] [place] Monocytes (Bld) [#/Vol] 0.6 10*3/uL Normal 0.0-0.8 [facility] Comment on above: Performed By: #### C BC, BMP #### [facility] [address] Monocytes/100 WBC (Bld) 5.3 % Normal . [facility] Comment on above: Performed By: #### C BC, BMP #### [facility] [address] [place] [address] [place] Neutrophils (Bld) [#/Vol] 9.0 10*3/uL High 1.8-7.7 [facility] Comment on above: Performed By: #### C BC, BMP #### [facility] [address] [place] [id number] [place] Neutrophils/100 WBC (Bld) 74.2 % Normal . [facility] Comment on above: Performed By: #### C BC, BMP #### [facility] [address] [place] [address] [place] Nucleated RBC/100 WBC (Bld) [Ratio] 0.0 % Normal 0-0.5 [facility] Comment on above: Performed By: #### C BC, BMP #### [facility] [address] [place] [address] [place] Platelet mean volume (Bld) [Entitic vol] 7.4 fL Normal 6.3-10.7 [facility] Comment on above: Performed By: #### C BC, BMP #### [facility] [address] [place] [id number] [place] Platelets (Bld) [#/Vol] 543 10*3/uL High 150-450 [facility] Comment on above: Performed By: #### C BC, BMP #### [facility] [address] [place] [id number] [place] RBC (Bld) [#/Vol] 3.74 10*6/uL Normal 3.60-5.00 [facility] Comment on above: Performed By: #### C BC, BMP #### [facility] [address] [place] [id number] [place] WBC (Bld) [#/Vol] 12.2 10*3/uL High 4.5-11.0 [facility] Comment on above: Performed By: #### C BC, BMP #### [facility] [address] [place] [address] [place] Creatinine and Glomerular fi ltration rate.predicted panel (S/P/Bld)Ordered By: Rufus Perez on 11-22-2021 Creatinine [Mass/Vol] 0.82 mg/dL 0.44-1.03 [facility] Eosinophils Auto (Bld) [#/Vo l]Ordered By: Rufus Perez on 11-22-2021 Eosinophils (Bld) [#/Vol] 0.2 10*3/uL 0.0-0.45 [facility] Eosinophils/100 WBC Auto (Bl d)Ordered By: Rufus Perez on 11-22-2021 Eosinophils/100 WBC (Bld) 2.0 % . [facility] Erythrocyte distribution wid th Auto (RBC) [Ratio]Ordered By: Rufus Perez on 11-22-2021 Erythrocyte distribution width (RBC) [Ratio] 19.2 % 11.9-15.3 [facility] Estimated glomerular filtrat ion rate (GFR) non- AmericanOrdered By: Rufus Perez on 11-22-2021 GFR/1.73 sq M.predicted among non-blacks MDRD (S/P/Bld) [Vol rate/Area] > 60 mL/Min [facility] Hematocrit Auto (Bld) [Volum e fraction]Ordered By: Rufus Peerz on 11-22-2021 Hematocrit (Bld) [Volume fraction] 32.0 % 34.0-46.4 [facility] Laboratory - Hematology and Cell countsOrdered By: Rufus Perez on 11-22-2021 Nucleated RBC/100 WBC (Bld) [Ratio] 0.0 % 0-0.5 [facility] Lymphocytes Auto (Bld) [#/Vo l]Ordered By: Rufus Perez on 11-22-2021 Lymphocytes (Bld) [#/Vol] 2.2 10*3/uL 1.00-4.8 [facility] Lymphocytes/100 WBC Auto (Bl d)Ordered By: Rufus Perez on 11-22-2021 Lymphocytes/100 WBC (Bld) 18.2 % . [facility] MCH Auto (RBC) [Entitic mass ]Ordered By: Rufus Perez on 11-22-2021 MCH (RBC) [Entitic mass] 27.0 pg 24.7-34.3 [facility] MCHC Auto (RBC) [Mass/Vol]Or dered By: Rufus Perez on 11-22-2021 MCHC (RBC) [Mass/Vol] 31.5 g/dL 32.0-35.0 [facility] MCV Auto (RBC) [Entitic vol] Ordered By: Rufus Perez on 11-22-2021 MCV (RBC) [Entitic vol] 85.7 fL 80-100 [facility] Monocytes Auto (Bld) [#/Vol] Ordered By: Rufus Perez on 11-22-2021 Monocytes (Bld) [#/Vol] 0.6 10*3/uL 0.0-0.8 [facility] Monocytes/100 WBC Auto (Bld) Ordered By: Rufus Perez on 11-22-2021 Monocytes/100 WBC (Bld) 5.3 % . [facility] Neutrophils Auto (Bld) [#/Vo l]Ordered By: Rufus Perez on 11-22-2021 Neutrophils (Bld) [#/Vol] 9.0 10*3/uL 1.8-7.7 [facility] Neutrophils/100 WBC Auto (Bl d)Ordered By: Rufus Perez on 11-22-2021 Neutrophils/100 WBC (Bld) 74.2 % . [facility] No Panel InformationOrdered By: Rufus Perez on 11-22-2021 Estimated GFR () > 60 mL/Min [facility] Comment on above: GFR estimated refere nce range: According to KDOQI guidelines, <60 ml/min/1.73m2 is sufficient to diagnose a patient with chronic kidney disease. Pharmacy Creatinine Clearance (Chem N/A [facility] Platelet mean volume Auto (B ld) [Entitic vol]Ordered By: Rufus Perez on 11-22-2021 Platelet mean volume (Bld) [Entitic vol] 7.4 fL 6.3-10.7 [facility] Platelets Auto (Bld) [#/Vol] Ordered By: Rufus Perez on 11-22-2021 Platelets (Bld) [#/Vol] 543 10*3/uL 150-450 [facility] RBC Auto (Bld) [#/Vol]Ordere d By: Rufus Perez on 11-22-2021 RBC (Bld) [#/Vol] 3.74 10*6/uL 3.60-5.00 [facility] Serum or plasma anion gap de terminationOrdered By: Rufus Perez on 11-22-2021 Anion gap [Moles/Vol] 15.1 mmol/L 6.0-15.0 [facility] Serum or plasma calcium shakir urement (mass/volume)Ordered By: Rufus Perez on 11-22-2021 Calcium [Mass/Vol] 9.6 mg/dL 8.2-10.2 [facility] Serum or plasma chloride giovanna surement (moles/volume)Ordered By: Rufus Perez on 11-22-2021 Chloride [Moles/Vol] 97 mmol/L 95-114 [facility] Serum or plasma glucose shakir urement (mass/volume)Ordered By: Rufus Perez on 11-22-2021 Glucose [Mass/Vol] 105 mg/dL 70-100 [facility] Comment on above: ADA recommended refe rence rangeRandom Glucose Reference Range is dependent on time and content of last meal. Glucose of more than 200 mg/dL in a nonstressed, ambulatory subject supports the diagnosis of Diabetes Mellitus. Serum or plasma potassium me asurement (moles/volume)Ordered By: Rufus Perez on 11-22-2021 Potassium [Moles/Vol] 4.5 mmol/L 3.5-5.1 [facility] Serum or plasma sodium measu rement (moles/volume)Ordered By: Rufus Perez on 11-22-2021 Sodium [Moles/Vol] 133 mmol/L 136-146 [facility] Serum or plasma total carbon dioxide measurement (moles/volume)Ordered By: Rufus Perez on 11-22-2021 CO2 [Moles/Vol] 25.4 mmol/L 22.0-30.0 [facility] Serum or plasma urea nitroge n measurement (mass/volume)Ordered By: Rufus Perez on 11-22-2021 Urea nitrogen [Mass/Vol] 31 mg/dL 9-23 [facility] BASIC METABOLIC PANELon 10-18 Anion gap [Moles/Vol] 10 mmol/L Normal <=30 [facility] Comment on above: Performed By: #### L AB15 #### [facility] ([facility]) [address] [place] [address] Calcium [Mass/Vol] 9.6 mg/dL Normal 8.6-10.3 [facility] Comment on above: Performed By: #### L AB15 #### [facility] (BEAKER) [address] [place] [address] Chloride [Moles/Vol] 101 mmol/L Normal 98-107 [facility] Comment on above: Performed By: #### L AB15 #### [facility] [address] [place] [address] CO2 [Moles/Vol] 28 mmol/L Normal 21-31 [facility] Comment on above: Performed By: #### L AB15 #### [facility] ([facility]) [address] [place] [address] Creatinine [Mass/Vol] 0.71 mg/dL Normal 0.60-1.20 [facility] Comment on above: Performed By: #### L AB15 #### [facility] ([facility]) [address] [place] [address] GLOMERULAR FILTRATION RATE ML/MIN/1.73 SQ M.PREDICTED 94.2 mL/min/1.73m*2 Normal >60.0 [facility] Comment on above: Result Comment: [facility]???s estimated glomerular filtration rate (eGFR) will [...] individuals. Performed By: #### L AB15 #### [facility] ([facility]) [address] [place] [address] Glucose [Mass/Vol] 74 mg/dL Normal 70-100 [facility] Comment on above: Performed By: #### L AB15 #### [facility] ([facility]) [address] [place] [address] Potassium [Moles/Vol] 4.3 mmol/L Normal 3.5-5.1 [facility] Comment on above: Performed By: #### L AB15 #### [facility] ([facility]) [address] [place] [address] Sodium [Moles/Vol] 139 mmol/L Normal 136-145 [facility] Comment on above: Performed By: #### L AB15 #### [facility] ([facility]) [address] [place] [address] Urea nitrogen [Mass/Vol] 36 mg/dL High 7-25 [facility] Comment on above: Performed By: #### L AB15 #### [facility] ([facility]) [address] [place] [address] UREA NITROGEN/CREATININE (MASS RATIO) IN SER/PLAS 50.70 Normal [facility] Comment on above: Performed By: #### L AB15 #### [facility] ([facility]) [address] [place] [address] HEMATOCRITon 10-27-2021 Hematocrit (Bld) [Volume fraction] 33.5 % Low 36.0-48.0 [facility] Comment on above: Performed By: #### L [id number] #### [facility] ([facility]) [address] [place] [address] HEMOGLOBINon 10-27-2021 Hemoglobin (Bld) [Mass/Vol] 10.7 g/dL Low 12.0-15.0 [facility] Comment on above: Performed By: #### L AB291 #### [facility] ([facility]) [address] [facility] [place] [address] ARTERIAL BLOOD GAS WITH ICAo n 08-21-2021 BASE EXCESS -7 mmol/L Low -2-3 [facility] Comment on above: Performed By: #### 8 4511 ####[facility] [place] [address], [facility] DELIVERY SYSTEMS VENT Normal [facility] Comment on above: Performed By: #### 8 4511 ####[facility] [place] [address], [place] FIO2 30 % Normal [facility] Comment on above: Performed By: #### 8 4511 ####[facility] [place] [address], [place] HCO3 (Bld) [Moles/Vol] 17 mmol/L Low 21-28 e [facility] Comment on above: Performed By: #### 8 4511 ####[facility] [place] [address], [facility] IONIZED CALCIUM 1.20 mmol/L Normal 1.13-1.32 [facility] Comment on above: Performed By: #### 8 4511 ####[facility] [place] [address], [place] MIN VOLUME 6.7 Normal [facility] Comment on above: Performed By: #### 8 4511 ####[facility] [place] [address], [place] MODALITY VENT Normal [facility] Comment on above: Performed By: #### 8 4511 ####[facility] [place] [address], [place] Oxygen (Bld) [Partial pressure] 163 mm[Hg] Critically high 83-108 [facility] Comment on above: Performed By: #### 8 4511 ####[facility] [place] [address], [place] Oxygen saturation in Blood 97.1 % High 94.0-97.0 [facility] Comment on above: Performed By: #### 8 4511 ####[facility] [place] [address], [place] PCO2 28 mmHg Low 35-45 [facility] Comment on above: Performed By: #### 8 4511 ####[facility] [place] [address], [place] PEEP 8.0 CMH20 Normal [facility] Comment on above: Performed By: #### 8 4511 ####[facility] [place] [address], [place] PF RATIO 543 mmHg Normal [facility] Comment on above: Performed By: #### 8 4511 ####[facility] [place] [address], [place] pH (Bld) 7.39 [pH] Normal 7.35-7.45 [facility] Comment on above: Performed By: #### 8 4511 ####[facility] [place] [address], [place] PRESSURE SUPPORT 8 Normal [facility] Comment on above: Performed By: #### 8 4511 ####[facility] [place] [address], [place] BASE EXCESS -7 mmol/L Low -2-3 [facility] Comment on above: Performed By: #### 8 4511 ####[facility] [place] [address], [place] DELIVERY SYSTEMS VENT Normal [facility] Comment on above: Performed By: #### 8 4511 ####[facility] [place] [address], [place] FIO2 30 % Normal [facility] Comment on above: Performed By: #### 8 4511 ####[facility] [place] [address], [facility] HCO3 (Bld) [Moles/Vol] 17 mmol/L Low 21-28 Th e [facility] Comment on above: Performed By: #### 8 4511 ####[facility] [place] [address], [facility] IONIZED CALCIUM 1.15 mmol/L Normal 1.13-1.32 [facility] Comment on above: Performed By: #### 8 4511 ####[facility] [place] [address], [facility] MIN VOLUME 8.2 Normal [facility] Comment on above: Performed By: #### 8 4511 ####[facility] [place] [address], [facility] MODALITY AC Normal [facility] Comment on above: Performed By: #### 8 4511 ####[facility] [facility] [place] [address], [facility] Oxygen (Bld) [Partial pressure] 158 mm[Hg] Critically high 83-108 [facility] Comment on above: Performed By: #### 8 4511 ####[facility] [place] [address], [facility] Oxygen saturation in Blood 97.6 % High 94.0-97.0 [facility] Comment on above: Performed By: #### 8 4511 ####[facility] [facility] [place] [address], [facility] PCO2 26 mmHg Low 35-45 [facility] Comment on above: Performed By: #### 8 4511 ####[facility] [place] [address], [facility] PEEP 8.0 CMH20 Normal [facility] Comment on above: Performed By: #### 8 4511 ####[facility] PF RATIO 526 mmHg Normal [facility] Comment on above: Performed By: #### 8 4511 ####[facility] pH (Bld) 7.41 [pH] Normal 7.35-7.45 [facility] Comment on above: Performed By: #### 8 4511 ####[facility] [facility].[address] Respiratory rate 12 /min Normal [facility] Comment on above: Performed By: #### 8 4511 ####[facility] [facility].[address] TIDAL VOLUME (VT) CC 450 Normal [facility] Comment on above: Performed By: #### 8 4511 ####[facility].[address] BASE EXCESS -3 mmol/L Low -2-3 [facility] Comment on above: Performed By: #### 8 4511 ####[facility].[address] DELIVERY SYSTEMS MV Normal [facility] Comment on above: Performed By: #### 8 4511 ####[facility].[address] FIO2 30 % Normal [facility] Comment on above: Performed By: #### 8 4511 ####[facility] [facility].[address] HCO3 (Bld) [Moles/Vol] 21 mmol/L Normal 21-28 Th e [facility] Comment on above: Performed By: #### 8 4511 ####[facility].[address] IONIZED CALCIUM 1.24 mmol/L Normal 1.13-1.32 [facility] Comment on above: Performed By: #### 8 4511 ####[facility] [place] [address], [facility] MIN VOLUME 6.7 Normal [facility] Comment on above: Performed By: #### 8 4511 ####[facility] [place] [address], [facility] MODALITY AC Normal [facility] Comment on above: Performed By: #### 8 4511 ####[facility] [place] [address], [facility] Oxygen (Bld) [Partial pressure] 155 mm[Hg] Critically high 83-108 [facility] Comment on above: Performed By: #### 8 4511 ####[facility] [place] [address], [facility] Oxygen saturation in Blood 98.3 % High 94.0-97.0 [facility] Comment on above: Performed By: #### 8 4511 ####[facility] [place] [address], [facility] PCO2 32 mmHg Low 35-45 [facility] Comment on above: Performed By: #### 8 4511 ####[facility] [place] [address], [facility] PEEP 8.0 CMH20 Normal [facility] Comment on above: Performed By: #### 8 4511 ####[facility] [place] [address], [facility] pH (Bld) 7.42 [pH] Normal 7.35-7.45 [facility] Comment on above: Performed By: #### 8 4511 ####[facility] [place] [address], [facility] Respiratory rate 12 /min Normal [facility] Comment on above: Performed By: #### 8 4511 ####[facility] [place] [address], [facility] TIDAL VOLUME (VT) CC 450 Normal [facility] Comment on above: Performed By: #### 8 4511 ####[facility] [place] [address], [facility] BASIC METABOLIC PANELon 07-0 -2021 Calcium [Mass/Vol] 7.9 mg/dL Low 8.6-10.3 The [facility] Comment on above: Order Comment: No: D o not add to previous draw Performed By: #### 6 2594 #### [facility] [address] [place] [address], [facility] Chloride [Moles/Vol] 110 mmol/L High 98-107 [facility] Comment on above: Order Comment: No: D o not add to previous draw Performed By: #### 6 2594 #### [facility] [address] [place] [address], [place] CO2 [Moles/Vol] 20 mmol/L Low 21-[address] [facility] Comment on above: Order Comment: No: D o not add to previous draw Performed By: #### 6 2594 #### [facility] [address] [place] [address], [place] Creatinine [Mass/Vol] 0.77 mg/dL Normal 0.60-1.20 [facility] Comment on above: Order Comment: No: D o not add to previous draw Performed By: #### 6 2594 #### [facility] [address] [place] [address], [facility] GFR/1.73 sq M.predicted among blacks MDRD (S/P/Bld) [Vol rate/Area] mL/min/{1.73_m2} Normal >60 [facility] Comment on above: Order Comment: No: D o not add to previous draw Performed By: #### 6 2594 #### [facility] [address] [place] [address], [place] GFR/1.73 sq M.predicted among non-blacks MDRD (S/P/Bld) [Vol rate/Area] mL/min/{1.73_m2} Normal >60 [facility] Comment on above: Order Comment: No: D o not add to previous draw Performed By: #### 6 2594 #### [facility] [address] [place] [address], [place] Glucose [Mass/Vol] 124 mg/dL High 70-100 The [facility] Comment on above: Order Comment: No: D o not add to previous draw Performed By: #### 6 2594 #### [facility] [address] [place] [address], [place] Potassium [Moles/Vol] 3.8 mmol/L Normal 3.5-5.1 [facility] Comment on above: Order Comment: No: D o not add to previous draw Performed By: #### 6 2594 #### [facility] [address] [place] [address], [place] Sodium [Moles/Vol] 139 mmol/L Normal 136-145 [facility] Comment on above: Order Comment: No: D o not add to previous draw Performed By: #### 6 2594 #### [facility] [address] [place] [address], [place] Urea nitrogen [Mass/Vol] 26 mg/dL High 7-25 [facility] Comment on above: Order Comment: No: D o not add to previous draw Performed By: #### 6 2594 #### [facility] [address] [place] [address], [place] CBC COMPLETE BLOOD COUNTon 0 7- Erythrocyte distribution width (RBC) [Ratio] 18.3 % High 11.5-15.0 [facility] Comment on above: Order Comment: No: D o not add to previous draw Nurse draw Performed By: #### 5 0608 #### [facility] [address] [place] [address], [facility] Hematocrit (Bld) [Volume fraction] 24.4 % Low 36.0-45.0 [facility] Comment on above: Order Comment: No: D o not add to previous draw Nurse draw Performed By: #### 5 0608 #### [facility] [address] [place] [address], [facility] Hemoglobin (Bld) [Mass/Vol] 8.2 g/dL Low 12.0-15.0 [facility] Comment on above: Order Comment: No: D o not add to previous draw Nurse draw Performed By: #### 5 0608 #### [facility] [address] [place] [address], [facility] MCH (RBC) [Entitic mass] 30.5 pg Normal 27.0-33.0 [facility] Comment on above: Order Comment: No: D o not add to previous draw Nurse draw Performed By: #### 5 0608 #### [facility] [address] [address], [facility] MCHC (RBC) [Mass/Vol] 33.6 g/dL Normal 32.0-35.0 [facility] Comment on above: Order Comment: No: D o not add to previous draw Nurse draw Performed By: #### 5 0608 #### [facility] [address] [place] [address], [facility] MCV (RBC) [Entitic vol] 90.7 fL Normal 82.0-98.0 T jj [facility] Comment on above: Order Comment: No: D o not add to previous draw Nurse draw Performed By: #### 5 0608 #### [facility] [address] [place] [id number], [facility] Nucleated RBC/100 WBC (Bld) [Ratio] 0 % Normal 0-0 [facility] Comment on above: Order Comment: No: D o not add to previous draw Nurse draw Performed By: #### 5 0608 #### [facility] [address] [place] [address], [facility] PLAT CNT 297 10*3/uL Normal 150-400 [facility] Comment on above: Order Comment: No: D o not add to previous draw Nurse draw Performed By: #### 5 0608 #### [facility] [address] [place] [address], [facility] RBC (Bld) [#/Vol] 2.69 10*6/uL Low 3.80-5.00 The [facility] Comment on above: Order Comment: No: D o not add to previous draw Nurse draw Performed By: #### 5 0608 #### [facility] [address] [place] [address], [facility] WBC (Bld) [#/Vol] 11.33 10*3/uL High 4.00-10.60 [facility] Comment on above: Order Comment: No: D o not add to previous draw Nurse draw Performed By: #### 5 0608 #### [address] BRAIN WO CONTRASTon 08-21 CT BRAIN WO CONTRAST [facility] Department of Radiology [address] [place] [id number] Patient Name: MEG GEORGES : 1965 Sex: F Age: Race: White Pt. Location: [place] [address] Patient Status: I Ordered Date: 08/21/2021 12:50:00 [...] report. Electronically signed: Martinez Hoover. Transcribed by: [email or web address], User Resident: ARIEL SOLORZANO Electronically Signed by: MARTINEZ HOOVER @ 08/21/2021 05:07 PM I personally read this/these film(s) with this resident Normal [facility] Comment on above: Order Comment: Check NG Tube Position CT FACIAL BONES W CONTRASTon 08-21-2021 CT FACIAL BONES W CONTRAST [facility] Department of Radiology [address] [place] [id number] Patient Name: MEG GEORGES : 1965 Sex: F Age: Race: White Pt. Location: [place] [address] Patient Status: I Ordered Date: 08/21/2021 12:50:00 [...] above. Electronically signed: Martinez Hoover. Transcribed by: [email or web address], User Resident: Electronically Signed by: MARTINEZ HOOVER @ 08/21/2021 05:09 PM Normal [facility] Comment on above: Order Comment: R/O A telectasis LACTATE BLOODon 08-21-2021 Lactate [Moles/Vol] 0.6 mmol/L Normal .5-2.2 The [facility] Comment on above: Order Comment: No: D o not add to previous draw Performed By: #### 1 0054 ####[facility] [address] LIVER BATTERYon 08-21-2021 Albumin [Mass/Vol] 2.3 g/dL Low 3.5-5.7 [facility] Comment on above: Order Comment: No: D o not add to previous draw Performed By: #### 6 8112 #### [facility] [address] ALKALINE PHOSPH 172 IU/L High 34-[address] [facility] Comment on above: Order Comment: No: D o not add to previous draw Performed By: #### 6 9714 #### [facility] [address] [place] [address], [place] ALT [Catalytic activity/Vol] 9 U/L Normal 7-52 [facility] Comment on above: Order Comment: No: D o not add to previous draw Performed By: #### 6 2594 #### [facility] [address] [place] [address], [place] AST [Catalytic activity/Vol] 12 U/L Low 13-39 [facility] Comment on above: Order Comment: No: D o not add to previous draw Performed By: #### 6 2594 #### [facility] [address] [place] [address], [place] Bilirubin [Mass/Vol] 0.4 mg/dL Normal 0.3-1.0 [facility] Comment on above: Order Comment: No: D o not add to previous draw Performed By: #### 6 2594 #### [facility] [address] [place] [address], [place] Bilirubin.direct [Mass/Vol] 0.1 mg/dL Normal 0.0-0.2 [facility] Comment on above: Order Comment: No: D o not add to previous draw Performed By: #### 6 2594 #### [facility] [address] [place] [address], [place] Protein [Mass/Vol] 5.7 g/dL Low 6.0-8.3 The [facility] Comment on above: Order Comment: No: D o not add to previous draw Performed By: #### 6 2594 #### [facility] [address] [place] [address], [place] MAGNESIUM BLOODon 08-21-2021 Magnesium [Mass/Vol] 2.1 mg/dL Normal 1.9-2.7 [facility] Comment on above: Order Comment: No: D o not add to previous draw Performed By: #### 6 2594 #### [facility] [address] Operative Reporton Operative Report MR#: [id number] I [facility] Pt. Name: Meg Georges Room #: BECKY [id number] Discharge Date: Birthdate: 1965 OPERATIVE REPORT DATE OF SURGERY: 08/21/2021 SURGEON: Jerry Pozo MD Operative report: Percutaneous endoscopic gastrostomy tube placement Location: [facility] main OR Date: 08/21/2021 Preoperative diagnosis: Oropharyngeal dysphagia, nasopharyngeal erosion Postoperative diagnosis: Same Operation performed: Percutaneous endoscopic gastrostomy tube placement Surgeon: Jerry Pozo MD Assistant Women'S Basketball Coach: Garfield Bowen MD ( resident PGY 5) Estimated blood loss: 2 mL Wound classification: Clean contaminated Tubes and drains: 20 Guyanese gastrostomy tube pull type Local anesthetic: 1% lidocaine plain, 4 mL used for subcutaneous infiltration Anesthesia: General anesthesia Indication: This is a 56-year-old woman who had a prolonged hospitalization at [facility] in [place] over the last several months for COVID-related pneumonia and subsequent bacterial pneumonia complications. Patient had chronic hypoxemic respiratory failure requiring placement of tracheostomy approximately 2 weeks ago prior to transfer to LTAC. Patient presented to [facility] 1 day ago for acute bleeding seen [...] Pozo MD Date Trans: 08/21/2021 11:17 A/ LAUREN_JN:[id number] cc: Johny Beckman M.D. [address] [place] [address]. Emergency Medicine [facility] [address] Neri Santa D.O. [facility] [address] Normal [facility] PHOSPHORUS BLOODon 2 Phosphate [Mass/Vol] 2.3 mg/dL Low 2.5-5.0 [facility] Comment on above: Order Comment: No: D o not add to previous draw Performed By: #### 6 2594 #### [facility] [address] [facility] [place] [address], [facility] POC GLUCOSE LABon 08-21-2021 Glucose [Mass/Vol] 138 mg/dL High 70-100 The [facility] Comment on above: Performed By: #### 8 5499 #### [facility] [address] [facility] [place] [address], [place] Glucose [Mass/Vol] 164 mg/dL High 70-100 The [facility] Comment on above: Performed By: #### 8 5499 ####[facility] [facility] [place] [address], [place] Glucose [Mass/Vol] 143 mg/dL High 70-100 The [facility] Comment on above: Order Comment: Bleed ing s/p recent tracheostomy Performed By: #### 8 5499 ####[facility] [facility] [place] [address], [place] Glucose [Mass/Vol] 124 mg/dL High 70-100 The [facility] Comment on above: Performed By: #### 8 5499 ####[facility] [facility] [place] [address], [facility] PORTABLE CHEST 1 VIEWon PORTABLE CHEST 1 VIEW [facility] Department of Radiology [address] [place] [address] Patient Name: MEG GEORGES : 1965 Sex: F Age: Race: White Pt. Location: [place] [address] Patient Status: I Ordered Date: 08/21/2021 5:00:00 [...] unchanged. Electronically signed: Yaritza Young. Transcribed by: [email or web address], User Resident: Electronically Signed by: YARITZA YOUNG @ 08/21/2021 07:38 AM Normal [facility] Comment on above: Order Comment: R/O A telectasis *BLOOD CULTUREon 08-20-2021 *BLOOD CULTURE Clinical Report: (D) Specimen: BLOOD CULTURE Collected: 08/20/2021 00:47 Status: Final Last Updated: 08/25/2021 06:53 (1) RIGHT AC @ 0045. CULT RES (Final) No Growth Day 5 Normal [facility] Comment on above: Order Comment: RIGHT AC @ 0045. Performed By: #### 3 0313 #### [address] *BLOOD CULTURE Clinical Report: (D) Specimen: BLOOD CULTURE Collected: 08/20/2021 00:47 Status: Final Last Updated: 08/25/2021 06:53 (1) LEFT AC @ 0040. CULT RES (Final) No Growth Day 5 Normal [facility] Comment on above: Order Comment: Bleed ing s/p recent tracheostomy Performed By: #### 3 0313 ####[facility] [facility].[address] APTTon 08-20-2021 aPTT Coag (Bld) [Time] 58.3 s High 25.0-35.0 Th e [facility] Comment on above: Result Comment: ALL [...] PURPOSE. Performed By: #### 6 2594 #### [facility] [address] [facility]. [address] ARTERIAL BLOOD GAS WITH ICAo n 08-20-2021 BASE EXCESS -2 mmol/L Normal -2-3 [facility] Comment on above: Order Comment: RESUL TS CHECKED AND CALLED. ACCURATELY READ BACK BY DR CALI Performed By: #### 8 4511 ####[facility] [address] DELIVERY SYSTEMS MV Normal The [facility] Comment on above: Order Comment: RESUL TS CHECKED AND CALLED. ACCURATELY READ BACK BY DR CALI Performed By: #### 8 4511 ####[facility] [address] FIO2 50 % Normal [facility] Comment on above: Order Comment: RESUL TS CHECKED AND CALLED. ACCURATELY READ BACK BY DR CALI Performed By: #### 8 4511 ####[facility] [place] [address], [facility] HCO3 (Bld) [Moles/Vol] 20 mmol/L Low 21-28 Th e [facility] Comment on above: Order Comment: RESUL TS CHECKED AND CALLED. ACCURATELY READ BACK BY DR CALI Performed By: #### 8 4511 ####[facility] [address] IONIZED CALCIUM 1.09 mmol/L Low 1.13-1.32 [facility] Comment on above: Order Comment: RESUL TS CHECKED AND CALLED. ACCURATELY READ BACK BY DR CALI Performed By: #### 8 4511 ####[facility].[address] MIN VOLUME 8.9 Normal [facility] Comment on above: Order Comment: RESUL TS CHECKED AND CALLED. ACCURATELY READ BACK BY DR CALI Performed By: #### 8 4511 ####[facility] MODALITY AC Normal [facility] Comment on above: Order Comment: RESUL TS CHECKED AND CALLED. ACCURATELY READ BACK BY DR CALI Performed By: #### 8 4511 ####[facility].[address] Oxygen (Bld) [Partial pressure] 239 mm[Hg] Critically high 83-108 [facility] Comment on above: Order Comment: RESUL TS CHECKED AND CALLED. ACCURATELY READ BACK BY DR CALI Performed By: #### 8 4511 ####[facility].[address] Oxygen saturation in Blood 97.6 % High 94.0-97.0 [facility] Comment on above: Order Comment: RESUL TS CHECKED AND CALLED. ACCURATELY READ BACK BY DR CALI Performed By: #### 8 4511 ####[facility] PCO2 24 mmHg Critically low 35-45 [facility] Comment on above: Order Comment: RESUL TS CHECKED AND CALLED. ACCURATELY READ BACK BY DR CALI Performed By: #### 8 4511 ####[place] [address] [facility].[address] PEEP 8.0 CMH20 Normal [facility] Comment on above: Order Comment: RESUL TS CHECKED AND CALLED. ACCURATELY READ BACK BY DR CALI Performed By: #### 8 4511 ####[facility].[address] pH (Bld) 7.52 [pH] High 7.35-7.45 [facility] Comment on above: Order Comment: RESUL TS CHECKED AND CALLED. ACCURATELY READ BACK BY DR CALI Performed By: #### 8 4511 ####[place] [address] [facility].[address] Respiratory rate 14 /min Normal [facility] Comment on above: Order Comment: RESUL TS CHECKED AND CALLED. ACCURATELY READ BACK BY DR CALI Performed By: #### 8 4511 ####[place] [address] TIDAL VOLUME (VT) CC 550 Normal [facility] Comment on above: Order Comment: RESUL TS CHECKED AND CALLED. ACCURATELY READ BACK BY DR CALI Performed By: #### 8 4511 ####[address] BASIC METABOLIC PANELon 07-0 Calcium [Mass/Vol] 6.2 mg/dL Critically low 8.6-10.3 [facility] Comment on above: Order Comment: Check NG Tube Position Performed By: #### 1 0070, 65710, 04347, 13650 ####[facility] Chloride [Moles/Vol] 112 mmol/L High 98-107 [facility] Comment on above: Order Comment: Check NG Tube Position Performed By: #### 1 0070, 82214, 04904, 22794 ####[facility] [place] [address], [facility] CO2 [Moles/Vol] 17 mmol/L Low 21-31 [facility] Comment on above: Order Comment: Check NG Tube Position Performed By: #### 1 0070, 57323, 37824, 89872 ####[facility] [place] [address], [facility] Creatinine [Mass/Vol] 0.80 mg/dL Normal 0.60-1.20 [facility] Comment on above: Order Comment: Check NG Tube Position Performed By: #### 1 0070, 94124, 14880, 57550 ####[facility] [place] [address], [facility] GFR/1.73 sq M.predicted among blacks MDRD (S/P/Bld) [Vol rate/Area] mL/min/{1.73_m2} Normal >60 [facility] Comment on above: Order Comment: Check NG Tube Position Performed By: #### 1 0070, 81706, 49994, 09940 ####[facility] [place] [address], [facility] GFR/1.73 sq M.predicted among non-blacks MDRD (S/P/Bld) [Vol rate/Area] mL/min/{1.73_m2} Normal >60 [facility] Comment on above: Order Comment: Check NG Tube Position Performed By: #### 1 0070, 32748, 42114, 51972 ####[facility] [id number], [facility] Glucose [Mass/Vol] 123 mg/dL High 70-100 [facility] Comment on above: Order Comment: Check NG Tube Position Performed By: #### 1 0070, 55992, 83243, 06563 ####[facility].[address] Potassium [Moles/Vol] 3.1 mmol/L Low 3.5-5.1 [facility] Comment on above: Order Comment: Check NG Tube Position Performed By: #### 1 0070, 21149, 67454, 30108 ####[facility].[address] Sodium [Moles/Vol] 137 mmol/L Normal 136-145 [facility] Comment on above: Order Comment: Check NG Tube Position Performed By: #### 1 0070, 07662, 76639, 06524 ####[facility].[address] Urea nitrogen [Mass/Vol] 31 mg/dL High 7-25 [facility] Comment on above: Order Comment: Check NG Tube Position Performed By: #### 1 0070, 56514, 24428, 33087 ####[facility].[address] CBC W/DIFFon 08-20-2021 ABS IMM GRANS 0.1 10*3/uL Normal 0.0-0.2 [facility] Comment on above: Order Comment: Bleed ing s/p recent tracheostomy Performed By: #### 5 0103 ####[facility].[address] ABS NEUTROPHILS 9.2 10*3/uL High 1.6-7.6 [facility] Comment on above: Order Comment: Bleed ing s/p recent tracheostomy Performed By: #### 5 0103 ####[facility] Basophils (Bld) [#/Vol] 0.0 10*3/uL Normal 0.0-0.2 [facility] Comment on above: Order Comment: Bleed ing s/p recent tracheostomy Performed By: #### 5 0103 ####[facility] [place] [address], [facility] Basophils/100 WBC (Bld) 0.3 % Normal 0.0-1.0 T [facility] Comment on above: Order Comment: Bleed ing s/p recent tracheostomy Performed By: #### 5 0103 ####[facility] [place] [address], [facility] Eosinophils (Bld) [#/Vol] 0.1 10*3/uL Normal 0.0-0.5 [facility] Comment on above: Order Comment: Bleed ing s/p recent tracheostomy Performed By: #### 5 0103 ####[facility] [place] [address], [facility] Eosinophils/100 WBC (Bld) 0.4 % Normal 0.0-6.0 [facility] Comment on above: Order Comment: Bleed ing s/p recent tracheostomy Performed By: #### 5 0103 ####[facility] Erythrocyte distribution width (RBC) [Ratio] 17.2 % High 11.5-15.0 [facility] Comment on above: Order Comment: Bleed ing s/p recent tracheostomy Performed By: #### 5 0103 ####[facility] Hematocrit (Bld) [Volume fraction] 23.9 % Low 36.0-45.0 [facility] Comment on above: Order Comment: Bleed ing s/p recent tracheostomy Performed By: #### 5 0103 ####[facility] Hemoglobin (Bld) [Mass/Vol] 8.1 g/dL Low 12.0-15.0 [facility] Comment on above: Order Comment: Bleed ing s/p recent tracheostomy Performed By: #### 5 0103 ####[facility] IMMATURE GRANS 0.6 % Normal 0.0-1.0 [facility] Comment on above: Order Comment: Bleed ing s/p recent tracheostomy Performed By: #### 5 0103 ####[facility] [place] [address] Lymphocytes (Bld) [#/Vol] 3.3 10*3/uL Normal 1.2-4.0 [facility] Comment on above: Order Comment: Bleed ing s/p recent tracheostomy Performed By: #### 5 0103 ####[address] Lymphocytes/100 WBC (Bld) 24.4 % Normal 20.0-45.0 [facility] Comment on above: Order Comment: Bleed ing s/p recent tracheostomy Performed By: #### 5 0103 ####[place] [address] MCH (RBC) [Entitic mass] 30.6 pg Normal 27.0-33.0 [facility] Comment on above: Order Comment: Bleed ing s/p recent tracheostomy Performed By: #### 5 0103 ####[facility] MCHC (RBC) [Mass/Vol] 33.9 g/dL Normal 32.0-35.0 [facility] Comment on above: Order Comment: Bleed ing s/p recent tracheostomy Performed By: #### 5 0103 ####[facility] [place] [address] MCV (RBC) [Entitic vol] 90.2 fL Normal 82.0-98.0 T [facility] Comment on above: Order Comment: Bleed ing s/p recent tracheostomy Performed By: #### 5 0103 ####[facility] Monocytes (Bld) [#/Vol] 1.0 10*3/uL Normal 0.1-1.0 [facility] Comment on above: Order Comment: Bleed ing s/p recent tracheostomy Performed By: #### 5 0103 ####[facility] MONOS 7.2 % Normal 5.0-12.0 [facility] Comment on above: Order Comment: Bleed ing s/p recent tracheostomy Performed By: #### 5 0103 ####[facility] Neutrophils/100 WBC (Bld) 67.1 % Normal 40.0-72.0 [facility] Comment on above: Order Comment: Bleed ing s/p recent tracheostomy Performed By: #### 5 0103 ####[facility] Nucleated RBC/100 WBC (Bld) [Ratio] 0 % Normal 0-0 [facility] Comment on above: Order Comment: Bleed ing s/p recent tracheostomy Performed By: #### 5 0103 ####[facility] PLAT CNT 328 10*3/uL Normal 150-400 [facility] Comment on above: Order Comment: Bleed ing s/p recent tracheostomy Performed By: #### 5 0103 ####[facility] RBC (Bld) [#/Vol] 2.65 10*6/uL Low 3.80-5.00 The [facility] Comment on above: Order Comment: Bleed ing s/p recent tracheostomy Performed By: #### 5 0103 ####[facility] [place] [address], [facility] WBC (Bld) [#/Vol] 13.67 10*3/uL High 4.00-10.60 [facility] Comment on above: Order Comment: Bleed ing s/p recent tracheostomy Performed By: #### 5 0103 ####[facility] [place] [address], [facility] ABS IMM GRANS 0.2 10*3/uL Normal 0.0-0.2 [facility] Comment on above: Performed By: #### 5 0103 ####[facility] [place] [address], [facility] ABS NEUTROPHILS 18.9 10*3/uL High 1.6-7.6 The [facility] Comment on above: Performed By: #### 5 0103 ####[facility] [place] [address], [facility] Basophils (Bld) [#/Vol] 0.1 10*3/uL Normal 0.0-0.2 [facility] Comment on above: Performed By: #### 5 0103 ####[facility] [place] [address], [facility] Basophils/100 WBC (Bld) 0.4 % Normal 0.0-1.0 T [facility] Comment on above: Performed By: #### 5 0103 ####[facility] [place] [address], [facility] Eosinophils (Bld) [#/Vol] 0.4 10*3/uL Normal 0.0-0.5 [facility] Comment on above: Performed By: #### 5 3 ####[facility] [place] [address], [facility] Eosinophils/100 WBC (Bld) 1.7 % Normal 0.0-6.0 [facility] Comment on above: Performed By: #### 5 0103 ####[facility] Erythrocyte distribution width (RBC) [Ratio] 17.4 % High 11.5-15.0 [facility] Comment on above: Performed By: #### 5 0103 ####[facility] Hematocrit (Bld) [Volume fraction] 25.5 % Low 36.0-45.0 [facility] Comment on above: Performed By: #### 5 0103 ####[facility] [place] [address] Hemoglobin (Bld) [Mass/Vol] 8.1 g/dL Low 12.0-15.0 [facility] Comment on above: Performed By: #### 5 0103 ####[facility] IMMATURE GRANS 0.8 % Normal 0.0-1.0 [facility] Comment on above: Performed By: #### 5 0103 ####[facility] Lymphocytes (Bld) [#/Vol] 2.8 10*3/uL Normal 1.2-4.0 [facility] Comment on above: Performed By: #### 5 0103 ####[facility] Lymphocytes/100 WBC (Bld) 11.7 % Low 20.0-45.0 [facility] Comment on above: Performed By: #### 5 3 ####[address] MCH (RBC) [Entitic mass] 31.5 pg Normal 27.0-33.0 [facility] Comment on above: Performed By: #### 5 0103 ####[facility].[address] MCHC (RBC) [Mass/Vol] 31.8 g/dL Low 32.0-35.0 [facility] Comment on above: Performed By: #### 5 0103 ####[facility].[address] MCV (RBC) [Entitic vol] 99.2 fL High 82.0-98.0 T [facility] Comment on above: Performed By: #### 5 0103 ####[facility] Monocytes (Bld) [#/Vol] 1.5 10*3/uL High 0.1-1.0 [facility] Comment on above: Performed By: #### 5 0103 ####[facility].[address] MONOS 6.2 % Normal 5.0-12.0 [facility] Comment on above: Performed By: #### 5 0103 ####[facility] Neutrophils/100 WBC (Bld) 79.2 % High 40.0-72.0 [facility] Comment on above: Performed By: #### 5 0103 ####[facility] Nucleated RBC/100 WBC (Bld) [Ratio] 0 % Normal 0-0 [facility] Comment on above: Performed By: #### 5 3 ####[facility].[address] PLAT CNT 538 10*3/uL High 150-400 [facility] Comment on above: Performed By: #### 5 0103 ####[facility] [place] [address], [facility] RBC (Bld) [#/Vol] 2.57 10*6/uL Low 3.80-5.00 [facility] Comment on above: Performed By: #### 5 0103 ####[facility] [place] [address], [facility] WBC (Bld) [#/Vol] 23.85 10*3/uL High 4.00-10.60 [facility] Comment on above: Performed By: #### 5 0103 ####[facility].[address] COMP METABOLIC PANELon 08-20 Albumin [Mass/Vol] 2.5 g/dL Low 3.5-5.7 [facility] Comment on above: Performed By: #### 3 5200, 04162 ####[facility] [place] [address], [facility] ALKALINE PHOSPH 314 IU/L High 34-104 [facility] Comment on above: Performed By: #### 3 5200, 42899 ####[facility].[address] ALT [Catalytic activity/Vol] 14 U/L Normal 7-52 [facility] Comment on above: Performed By: #### 3 5200, 14491 ####[facility] [place] [address], [facility] AST [Catalytic activity/Vol] 21 U/L Normal 13-39 [facility] Comment on above: Performed By: #### 3 5200, 31019 ####[facility] [place] [address], [facility] Bilirubin [Mass/Vol] 0.6 mg/dL Normal 0.3-1.0 [facility] Comment on above: Performed By: #### 3 5199, 07768 ####[facility] [place] [address], [facility] Calcium [Mass/Vol] 8.0 mg/dL Low 8.6-10.3 [facility] Comment on above: Performed By: #### 3 5199, 56923 ####[facility] [place] [address], [place] Chloride [Moles/Vol] 101 mmol/L Normal 98-107 [facility] Comment on above: Performed By: #### 3 5199, 85835 ####[facility] [place] [address], [place] CO2 [Moles/Vol] 21 mmol/L Normal 21-31 [facility] Comment on above: Performed By: #### 3 5199, 48979 ####[facility] [facility] [place] [address], [facility] Creatinine [Mass/Vol] 0.99 mg/dL Normal 0.60-1.20 [facility] Comment on above: Performed By: #### 3 5199, 23951 ####[facility] [place] [address], [facility] eGFR- non- 58 ml/min/1.73sq m Abnormal >60 [facility] Comment on above: Performed By: #### 3 5199, 18889 ####[facility] [address], [facility] GFR/1.73 sq M.predicted among blacks MDRD (S/P/Bld) [Vol rate/Area] mL/min/{1.73_m2} Normal >60 [facility] Comment on above: Performed By: #### 3 5199, 59133 ####[facility] [place] [address], [place] Glucose [Mass/Vol] 280 mg/dL High 70-100 [facility] Comment on above: Performed By: #### 3 5199, 67162 ####[facility] [place] [address], [place] Potassium [Moles/Vol] 4.1 mmol/L Normal 3.5-5.1 [facility] Comment on above: Performed By: #### 3 5199, 55124 ####[facility] [place] [address], [place] Protein [Mass/Vol] 6.5 g/dL Normal 6.0-8.3 [facility] Comment on above: Performed By: #### 3 5199, 69352 ####[facility] [place] [address], [place] Sodium [Moles/Vol] 134 mmol/L Low 136-145 [facility] Comment on above: Performed By: #### 3 5199, 78360 ####[facility] [facility] [place] [address], [place] Urea nitrogen [Mass/Vol] 32 mg/dL High 7-25 [facility] Comment on above: Performed By: #### 3 5199, 11174 ####[facility] [place] [address], [place] CTA CHESTon 08-20-2021 CTA CHEST [facility] Department of Radiology [address] [place] [address] Patient Name: MEG GEORGES : 1965 Sex: F Age: Race: White Pt. Location: [facility] Patient Status: I Ordered Date: 08/19/2021 [...] report. Electronically signed: Charles Castillo. Transcribed by: [email or web address], User Resident: OLGA LIDIA WILLIS Electronically Signed by: CHARLES CASTILLO @ 08/20/2021 12:54 AM I personally read this/these film(s) with this resident Normal [facility] Comment on above: Order Comment: R/O A telectasis CTA NECKon 08-20-2021 CTA NECK [facility] Department of Radiology [address] [place] [id number] Patient Name: MEG GEORGES : 1965 Sex: F Age: Race: White Pt. Location: [facility] Patient Status: I Ordered Date: 08/19/2021 [...] report. Electronically signed: Charles Castillo. Transcribed by: [email or web address], User Resident: OLGA LIDIA WILLIS Electronically Signed by: CHARLES CASTILLO @ 08/20/2021 12:51 AM I personally read this/these film(s) with this resident Normal [facility] Comment on above: Order Comment: Bleed ing s/p recent tracheostomy Endoscopy Reporton 07-04-202 2 Endoscopy Report MR#: [id number] [facility] Pt. Name: Meg Georges Surgery Date: 08/20/2021 Room #: [facility] [id number] Date of : 1965 PROCEDURE NOTE ATTENDING: [...] Pozo M.D. Date Trans: 08/20/2021 05:17 P/ LAUREN_JN:[id number] cc: Johny Beckman M.D. [address] [place] [address] [address] Arina D.OCarrol [address] [place] [address]. [place] [address] Normal [facility] FIBRIN DEGRADATION PRODUCTon 08-20-2021 FSP 5 ug/ml Abnormal <5 ug/ml [facility] Comment on above: Order Comment: No: D o not add to previous draw Performed By: #### 6 2594 #### [facility] [address] [place] [address], [facility] FIBRINOGENon 08-20-2021 FIBRINOGEN 527 mg/dL High 150-425 [facility] Comment on above: Performed By: #### 6 2594 #### [facility] [address] FRESH FROZEN PLASMA 6 UNITSo n 08-20-2021 PRODUCT CODE 1 E2701 Normal [facility] Comment on above: Performed By: #### 8 7006 ####[facility] PRODUCT CODE 2 E2701 Normal [facility] Comment on above: Performed By: #### 8 7006 ####[facility], [place] [address] [place] [address] PRODUCT CODE 3 E2701 Normal [facility] Comment on above: Performed By: #### 8 7006 ####[facility] [place] [address], [facility] PRODUCT CODE 4 E7750 Normal [facility] Comment on above: Performed By: #### 8 7006 ####[facility] [place] [address], [facility] PRODUCT CODE 5 E2701 Normal [facility] Comment on above: Performed By: #### 8 7006 ####[facility] [place] [address], [facility] PRODUCT CODE 6 E2701 Normal [facility] Comment on above: Performed By: #### 8 7006 ####[facility].[address] PRODUCT STATUS 1 PT Normal [facility] Comment on above: Result Comment: Resu lt changed by IF on 08/20/2021 13:26. The previous value was XM. Result changed by IF on 08/21/2021 00:30. The previous value was IS. Performed By: #### 8 7006 ####[facility] [facility].[address] PRODUCT STATUS 2 RE Normal [facility] Comment on above: Result Comment: Resu lt changed by IF on 08/20/2021 05:09. The previous value was XM. Result changed by IF on 08/20/2021 05:16. The previous value was XX. Performed By: #### 8 7006 ####[place] [address] [facility].[address] PRODUCT STATUS 3 RE Normal [facility] Comment on above: Result Comment: Resu lt changed by IF on 08/20/2021 05:24. The previous value was XM. Result changed by IF on 08/20/2021 05:48. The previous value was XX. Performed By: #### 8 7006 ####[place] [address] [facility].[address] PRODUCT STATUS 4 RE Normal [facility] Comment on above: Result Comment: Resu lt changed by IF on 08/22/2021 16:50. The previous value was XM. Result changed by IF on 08/25/2021 01:00. The previous value was XX. Performed By: #### 8 7006 ####[place] [address] [facility].[address] PRODUCT STATUS 5 RE Normal [facility] Comment on above: Result Comment: Resu lt changed by IF on 08/20/2021 05:24. The previous value was XM. Result changed by IF on 08/20/2021 05:48. The previous value was XX. Performed By: #### 8 7006 ####[facility] [place] [address], [place] PRODUCT STATUS 6 RE Normal [facility] Comment on above: Result Comment: Resu lt changed by IF on 08/20/2021 05:24. The previous value was XM. Result changed by IF on 08/20/2021 05:48. The previous value was XX. Performed By: #### 8 700 ####[facility] [place] [address], [place] UNIT ABO 1 A Normal [facility] Comment on above: Performed By: #### 8 700 ####[facility] [place] [address], [place] Performed By: #### 8 9001 ####[facility] [place] [address], [place] UNIT ABO 2 A Normal [facility] Comment on above: Performed By: #### 8 7005 ####[facility] [place] [address], [place] UNIT ABO 3 A Normal [facility] Comment on above: Performed By: #### 8 7005 ####[facility] [place] [address], [place] UNIT ABO 4 A Normal [facility] Comment on above: Performed By: #### 8 7005 ####[facility] [place] [address], [place] UNIT ABO 5 A Normal [facility] Comment on above: Performed By: #### 8 7005 ####[facility] [place] [address], [place] UNIT ABO 6 A Normal [facility] Comment on above: Performed By: #### 8 700 ####[facility] [place] [address], [facility] UNIT ID 1 [id number] Normal The [facility] Comment on above: Performed By: #### 8 700 ####[facility] [place] [address], [facility] UNIT ID 2 [id number] Normal [facility] Comment on above: Performed By: #### 8 700 ####[facility] [facility] [place] [address], [facility] UNIT ID 3 [id number] Normal The [facility] Comment on above: Performed By: #### 8 700 ####[facility] [facility] [address], [facility] UNIT ID 4 [id number] Normal [facility] Comment on above: Performed By: #### 8 7005 ####[facility] [facility] [place] [place] [address], [facility] UNIT ID 5 [id number] Normal [facility] Comment on above: Performed By: #### 8 700 ####[facility] [facility] [place] [address], [facility] UNIT ID 6 [id number] Normal [facility] Comment on above: Performed By: #### 8 7005 ####[facility] [facility] [place] [address], [facility] UNIT RH 1 Positive Normal [facility] Comment on above: Performed By: #### 8 7005 ####[facility] [facility] [place] [address], [facility] Performed By: #### 8 9001 ####[facility] [place] [address], [facility] UNIT RH 2 Positive Normal [facility] Comment on above: Performed By: #### 8 7006 ####[facility] [place] [address], [facility] UNIT RH 3 Positive Normal [facility] Comment on above: Performed By: #### 8 7006 ####[facility] [place] [address], [facility] UNIT RH 4 Positive Normal [facility] Comment on above: Performed By: #### 8 7006 ####[facility] [place] [address], [facility] UNIT RH 5 Positive Normal [facility] Comment on above: Performed By: #### 8 7006 ####[facility] [place] [address], [facility] UNIT RH 6 Positive Normal [facility] Comment on above: Performed By: #### 8 7006 ####[facility] [place] [address], [facility] LACTATE BLOODon 08-20-2021 Lactate [Moles/Vol] 1.3 mmol/L Normal .5-2.2 [facility] Comment on above: Performed By: #### 6 2594 #### [facility] [address] [place] [address], [facility] LIVER BATTERYon 08-20-2021 Albumin [Mass/Vol] 1.8 g/dL Low 3.5-5.7 [facility] Comment on above: Order Comment: Check NG Tube Position Performed By: #### 1 0070, 95551, 26912, 14166 ####[facility] [place] [address], [facility] ALKALINE PHOSPH 171 IU/L High 34-104 [facility] Comment on above: Order Comment: Check NG Tube Position Performed By: #### 1 0070, 69624, 46023, 68566 ####[facility] [place] [address], [facility] ALT [Catalytic activity/Vol] 10 U/L Normal 7-52 [facility] Comment on above: Order Comment: Check NG Tube Position Performed By: #### 1 0070, 52915, 20910, 81884 ####[facility] [place] [address], [facility] AST [Catalytic activity/Vol] 12 U/L Low 13-39 [facility] Comment on above: Order Comment: Check NG Tube Position Performed By: #### 1 0070, 03801, 28522, 63174 ####[facility] [facility] [place] [address], [facility] Bilirubin [Mass/Vol] 0.4 mg/dL Normal 0.3-1.0 [facility] Comment on above: Order Comment: Check NG Tube Position Performed By: #### 1 0070, 88242, 75592, 11428 ####[facility] [facility] [place] [address], [facility] Bilirubin.direct [Mass/Vol] 0.1 mg/dL Normal 0.0-0.2 [facility] Comment on above: Order Comment: Check NG Tube Position Performed By: #### 1 0070, 36965, 73966, 08138 ####[facility] [place] [address], [facility] Protein [Mass/Vol] 4.6 g/dL Low 6.0-8.3 The [facility] Comment on above: Order Comment: Check NG Tube Position Performed By: #### 1 0070, 62198, 14860, 66782 ####[facility] [id number], [facility] MAGNESIUM BLOODon 08-20-2021 Magnesium [Mass/Vol] 1.4 mg/dL Low 1.9-2.7 [facility] Comment on above: Order Comment: Check NG Tube Position Performed By: #### 1 0070, 69486, 94847, 20842 ####[facility] OSMOLALITY BLOODon 2 Osmolality [Osmolality] 309 mosm/kg High 285-305 [facility] Comment on above: Order Comment: No: D o not add to previous draw Performed By: #### 6 2594 #### [facility] [address] PHOSPHORUS BLOODon 2 Phosphate [Mass/Vol] 2.4 mg/dL Low 2.5-5.0 [facility] Comment on above: Order Comment: Check NG Tube Position Performed By: #### 1 0070, 68144, 94191, 93921 ####[facility] PLATELET APHERESIS 1 UNITon 08-20-2021 PRODUCT CODE 1 E8341 Normal [facility] Comment on above: Performed By: #### 8 9001 ####[facility] UNIT ID 1 [id number] Normal [facility] Comment on above: Performed By: #### 8 9001 ####[facility] PRODUCT STATUS 1 RE Normal The [facility] Comment on above: Result Comment: Resu lt changed by IF on 08/21/2021 01:00. The previous value was XM. Performed By: #### 8 9001 ####[facility] Result Comment: Resu lt changed by IF on 08/21/2021 08:54. The previous value was XM. Result changed by IF on 08/21/2021 18:31. The previous value was XX. Performed By: #### 8 6006 ####[facility] [facility] [place] [address], [facility] POC GLUCOSE LABon 08-20-2021 Glucose [Mass/Vol] 118 mg/dL High 70-100 The [facility] Comment on above: Performed By: #### 8 5499 ####[facility] [facility] [place] [address], [place] Glucose [Mass/Vol] 142 mg/dL High 70-100 The [facility] Comment on above: Performed By: #### 8 5499 ####[facility] [facility] [place] [address], [place] Glucose [Mass/Vol] 160 mg/dL High 70-100 [facility] Comment on above: Performed By: #### 8 5499 ####[facility] [facility] [place] [address], [place] Glucose [Mass/Vol] 177 mg/dL High 70-100 The [facility] Comment on above: Performed By: #### 8 5499 ####[facility] [facility] [place] [address], [facility] POC SARS COV2 ANTIGEN NEGATI VEon 08-20-2021 POC SARS COV2 ANTIGEN NEG Negative Normal NEGATIVE [facility] Comment on above: Result Comment: Nega [...] antigen from SARS-CoV-2 in direct nasopharyngeal swab (CERTIFIED CYTOTECHNOLOGIST) specimens from individuals who are suspected of [...] Accreditation. Performed By: #### 3 2044 #### [address] PORTABLE CHEST 1 VIEWon PORTABLE CHEST 1 VIEW [facility] Department of Radiology [address] [place] [id number] Patient Name: MEG GEORGES : 1965 Sex: F Age: Race: White Pt. Location: [place] [address] Patient Status: I Ordered Date: 08/20/2021 5:20:00 [...] FINDINGS: Enteric tube tip outside the inferior hssjo-vy-kskn, presumably within the stomach. Stable tracheostomy cannula. Stable cardiomediastinal silhouette. No new focal consolidation, significant effusion, or pneumothorax. Right upper extremity PICC, its tip at the mid SVC. IMPRESSION: Enteric tube tip likely within the stomach, outside the inferior isvww-dy-ljaj however Electronically signed: KIKE DICKSON. Transcribed by: [email or web address], User Resident: Electronically Signed by: KIKE DICKSON @ 08/20/2021 07:46 PM Normal [facility] Comment on above: Order Comment: Check NG Tube Position PORTABLE CHEST 1 VIEW [facility] Department of Radiology [address] [place] [id number] Patient Name: MEG GEORGES : 1965 Sex: F Age: Race: White Pt. Location: [place] [address] Patient Status: I Ordered Date: 08/20/2021 7:50:00 [...] indeterminate. Electronically signed: Blossom Gongora. Transcribed by: [email or web address], User Resident: BLOSSOM GONGORA Electronically Signed by: BLOSSOM GONGORA @ 08/20/2021 09:10 AM I personally read this/these film(s) with this resident Normal [facility] Comment on above: Order Comment: evalu ate for Atelectasis PORTABLE CHEST 1 VIEW [facility] Department of Radiology [address] [place] [id number] Patient Name: MEG GEORGES : 1965 Sex: F Age: Race: White Pt. Location: [facility] Patient Status: E Ordered Date: 08/19/2021 [...] abnormality. Electronically signed: Darci Monahan. Transcribed by: [email or web address], User Resident: Electronically Signed by: DARCI MONAHAN @ 08/19/2021 10:41 PM Normal [facility] Comment on above: Order Comment: Check NG Tube Position PROTHROMBIN TIMEon 2 INR Coag (PPP) [Relative time] 1.70 {INR} High 0.91-1.16 [facility] Comment on above: Order Comment: Check [...] CHEST 1995;108:231S-246S. Performed By: #### 5 6101 ####[facility] PT Coag (PPP) [Time] 19.7 s High 12.3-14.8 [facility] Comment on above: Order Comment: Check NG Tube Position Result Comment: ALL RESULTS MUST BE INTERPRETED WITH RESPECT TO BLOOD DRAWING ARTIFACT OR DILUTION ERROR OF ANTICOAGULANT AT THE TIME OF SAMPLING. Performed By: #### 5 6101 ####[facility] [facility].[address] INR Coag (PPP) [Relative time] 1.47 {INR} High 0.91-1.16 [facility] Comment on above: Result Comment: ACCC [...] CHEST 1995;108:231S-246S. Performed By: #### 5 6788, 88454, 72732, 86021 ####[facility] [facility] [place] [address], [facility] PT Coag (PPP) [Time] 17.7 s High 12.3-14.8 [facility] Comment on above: Result Comment: ALL RESULTS MUST BE INTERPRETED WITH RESPECT TO BLOOD DRAWING ARTIFACT OR DILUTION ERROR OF ANTICOAGULANT AT THE TIME OF SAMPLING. Performed By: #### 5 6788, 59532, 10412, 53535 ####[facility] [facility] [place] [address], [facility] RBC'S 6 UNITSon 08-20-2021 CROSSMATCH INTERP 1 COMP Normal [facility] Comment on above: Performed By: #### 8 6006 ####[facility] [place] [address], [facility] CROSSMATCH INTERP 2 COMP Normal [facility] Comment on above: Performed By: #### 8 6006 ####[facility] [place] [address], [place] CROSSMATCH INTERP 3 COMP Normal The [facility] [place] Comment on above: Performed By: #### 8 6006 ####[facility] [place] [address], [place] CROSSMATCH INTERP 4 COMP Normal [facility] Comment on above: Performed By: #### 8 6006 ####[facility] [place] [address], [place] CROSSMATCH INTERP 5 COMP Normal [facility] Comment on above: Performed By: #### 8 6006 ####[facility] [place] [address], [place] CROSSMATCH INTERP 6 COMP Normal [facility] Comment on above: Performed By: #### 8 6006 ####[facility] [place] [address], [facility] PRODUCT CODE 1 E0336 Normal [facility] Comment on above: Performed By: #### 8 6006 ####[facility] [place] [address], [place] PRODUCT CODE 2 E0336 Normal [facility] Comment on above: Performed By: #### 8 6006 ####[facility] [place] [address], [place] PRODUCT CODE 3 E0336 Normal [facility] Comment on above: Performed By: #### 8 6006 ####[facility] [place] [address], [facility] PRODUCT CODE 4 E0336 Normal [facility] Comment on above: Performed By: #### 8 6006 ####[facility] [place] [address], [facility] PRODUCT CODE 5 E0336 Normal [facility] Comment on above: Performed By: #### 8 6006 ####[facility] [place] [address], [facility] PRODUCT CODE 6 E0336 Normal [facility] Comment on above: Performed By: #### 8 6006 ####[facility] [place] [address], [facility] PRODUCT STATUS 2 RE Normal The [facility] Comment on above: Result Comment: Resu lt changed by IF on 08/20/2021 05:40. The previous value was XM. Result changed by IF on 08/20/2021 05:48. The previous value was XX. Performed By: #### 8 6006 ####[facility] [facility] [place] [address], [facility] PRODUCT STATUS 3 RE Normal [facility] Comment on above: Result Comment: Resu lt changed by IF on 08/22/2021 01:00. The previous value was XM. Performed By: #### 8 6006 ####[facility] [place] [address], [facility] PRODUCT STATUS 4 RE Normal [facility] Comment on above: Result Comment: Resu lt changed by IF on 08/20/2021 05:40. The previous value was XM. Result changed by IF on 08/20/2021 05:48. The previous value was XX. Performed By: #### 8 6006 ####[facility] [place] [address], [place] PRODUCT STATUS 5 RE Normal [facility] Comment on above: Result Comment: Resu lt changed by IF on 08/22/2021 01:00. The previous value was XM. Performed By: #### 8 6006 ####[facility] [place] [address], [place] PRODUCT STATUS 6 RE Normal [facility] Comment on above: Result Comment: Resu lt changed by IF on 08/21/2021 08:54. The previous value was XM. Result changed by IF on 08/22/2021 01:00. The previous value was XX. Performed By: #### 8 6006 ####[facility] [place] [address], [place] UNIT ABO 1 A Normal [facility] Comment on above: Performed By: #### 8 6006 ####[facility] [place] [address], [place] UNIT ABO 2 A Normal [facility] Comment on above: Performed By: #### 8 6006 ####[facility] [place] [address], [place] UNIT ABO 3 A Normal [facility] Comment on above: Performed By: #### 8 6006 ####[facility] [place] [address], [place] UNIT ABO 4 A Normal [facility] Comment on above: Performed By: #### 8 6006 ####[facility] [place] [address], [place] UNIT ABO 5 A Normal [facility] Comment on above: Performed By: #### 8 6006 ####[facility] [place] [address], [place] UNIT ABO 6 A Normal [facility] Comment on above: Performed By: #### 8 6006 ####[facility] [place] [address], [facility] UNIT ID 1 [id number] Normal [facility] Comment on above: Performed By: #### 8 6006 ####[facility] [place] [address], [facility] UNIT ID 2 [id number] [facility] Comment on above: Performed By: #### 8 6006 ####[facility] [facility] [place] [address], [facility] UNIT ID 3 [id number] [facility] Comment on above: Performed By: #### 8 6006 ####[facility] [facility] [place] [address], [facility] UNIT ID 4 [id number] Normal [facility] Comment on above: Performed By: #### 8 6006 ####[facility] [facility] [place] [address], [facility] UNIT ID 5 [id number] Normal [facility] Comment on above: Performed By: #### 8 6006 ####[facility] [facility] [place] [address], [facility] UNIT ID 6 [id number] Normal [facility] Comment on above: Performed By: #### 8 6006 ####[facility] [place] [address], [facility] UNIT RH 1 Positive Normal [facility] Comment on above: Performed By: #### 8 6006 ####[facility] [place] [address], [facility] UNIT RH 2 Positive Normal [facility] Comment on above: Performed By: #### 8 6006 ####[facility] [place] [address], [facility] UNIT RH 3 Positive Normal [facility] Comment on above: Performed By: #### 8 6006 ####[facility] [place] [address], [facility] UNIT RH 4 Positive Normal [facility] Comment on above: Performed By: #### 8 6006 ####[facility] [place] [address], [facility] UNIT RH 5 Positive Normal [facility] Comment on above: Performed By: #### 8 6006 ####[facility] [facility] [place] [address], [facility] UNIT RH 6 Positive Normal [facility] Comment on above: Performed By: #### 8 6006 ####[facility] [facility], [place] [address] TRIGLYCERIDES BLOODon 2021 Triglyceride [Mass/Vol] 147 mg/dL Normal 40-149 T [facility] Comment on above: Order Comment: No: D o not add to previous draw Result Comment: TRIG LYCERIDE REFERENCE RANGE: 20 YEARS AND OLDER CARDIOVASCULAR RISK LESS THAN 150 mg/dl LOW RISK 150 TO 199 mg/dl BORDERLINE RISK 200 mg/dl AND GREATER HIGH RISK Performed By: #### 6 2594 #### [facility] [address] [facility] [place] [address], [facility] TROPONIN-Ion 08-20-2021 Troponin I.cardiac [Mass/Vol] 0.03 ng/mL Normal 0.00-0.04 [facility] Comment on above: Result Comment: REFE RENCE RANGES: 0.00 - 0.04 ng/ml NORMAL 0.05 - 0.50 ng/ml INDETERMINATE > 0.50 ng/ml CONSISTENT WITH AN M.I. Performed By: #### 3 5200, 83457 ####[facility] [place] [address], [facility] TYPE AND CROSSMATCHon 2021 ABO INTERPRETATION A Normal [facility] Comment on above: Performed By: #### 6 2594 #### [facility] [address] [place] [address], [facility] RH INTERPRETATION Positive Normal The [facility] Comment on above: Performed By: #### 6 2594 #### [facility] [address] [place] [address], [facility] rbc emergency releaseon 070 CROSSMATCH INTERP 1 COMP Normal [facility] Comment on above: Performed By: #### R BCER ####[facility] [place] [address], [facility] CROSSMATCH INTERP 2 COMP Normal The [facility] [place] Comment on above: Result Comment: This result added by IF on 08/20/2021 02:44. Performed By: #### R BCER ####[facility] [place] [address], [facility] CROSSMATCH INTERP 3 COMP Normal The [facility] Comment on above: Result Comment: This result added by IF on 08/20/2021 02:44. Performed By: #### R BCER ####[facility] [place] [address], [facility] PRODUCT CODE 1 E0685 Normal [facility] Comment on above: Performed By: #### R BCER ####[facility] [place] [address], [facility] PRODUCT CODE 2 E0336 Normal [facility] Comment on above: Performed By: #### R BCER ####[facility] [place] [address], [facility] PRODUCT CODE 3 E0685 Normal [facility] Comment on above: Performed By: #### R BCER ####[facility] [facility] [place] [address], [facility] PRODUCT STATUS 1 PT Normal The [facility] Comment on above: Result Comment: Resu lt changed by IF on 08/20/2021 02:42. The previous value was EI. Result changed by IF on 08/21/2021 00:30. The previous value was PI. Performed By: #### R BCER ####[facility] [place] [address], [facility] PRODUCT STATUS 2 PT Normal The [facility] Comment on above: Result Comment: Resu lt changed by IF on 08/20/2021 02:44. The previous value was EI. Result changed by IF on 08/21/2021 00:30. The previous value was PI. Performed By: #### R BCER ####[facility] [facility] [place] [address], [facility] PRODUCT STATUS 3 PT Normal The [facility] Comment on above: Result Comment: Resu lt changed by IF on 08/20/2021 02:44. The previous value was EI. Result changed by IF on 08/21/2021 00:30. The previous value was PI. Performed By: #### R BCER ####[facility] [facility] [place] [address], [facility] UNIT ABO 1 O Normal [facility] Comment on above: Performed By: #### R BCER ####[facility] [facility] [place] [address], [place] UNIT ABO 2 O Normal [facility] Comment on above: Performed By: #### R BCER ####[facility] [facility] [place] [address], [place] UNIT ABO 3 O Normal [facility] Comment on above: Performed By: #### R BCER ####[facility] [facility].[address] UNIT ID 1 [id number] Normal [facility] Comment on above: Performed By: #### R BCER ####[facility] [facility], [place] [address] [place] [address] UNIT ID 2 [id number] [facility] Comment on above: Performed By: #### R BCER ####[facility] [facility], [place] [address] [place] [address] UNIT ID 3 [id number] [facility] Comment on above: Performed By: #### R BCER ####[facility] [facility] [place] [address], [facility] UNIT RH 1 Negative Normal [facility] Comment on above: Performed By: #### R BCER ####[facility] [facility] [place] [address], [facility] UNIT RH 2 Negative Normal [facility] Comment on above: Performed By: #### R BCER ####[facility] [facility] [place] [address], [facility] UNIT RH 3 Negative Normal [facility] Comment on above: Performed By: #### R BCER ####[address] BRAIN WO CONTRASTon 08-15 CT BRAIN WO CONTRAST [facility] Department of Radiology [address] [place] [address] Patient Name: MEG GEORGES : 1965 Sex: F Age: Race: White Pt. Location: OP Patient Status: Ordered Date: 08/15/2021 12:05:00 PM Completed Date: 08/15/2021 04:06 PM Requesting Provider: GANGA SAVAGE Attending Provider: Report Copy To: Signs & Symptoms: R/O Bleed History: Order in [facility] [phone] Trach/vent Comments: Exam: CT BRAIN WO CONTRAST [...] findings. Electronically signed: Angel Beal. Transcribed by: [email or web address], User Resident: Electronically Signed by: ANGEL BEAL @ 08/15/2021 04:12 PM Normal [facility] Basic Metabolic Panel w/ Ref rafael to MGon 08-10-2021 Anion gap [Moles/Vol] 11 mmol/L 9 - 17 mmol/L [facility] [employer] [facility] Calcium [Mass/Vol] 8.5 mg/dL Low 8.6 - 10. 4 mg/dL [facility] Chloride [Moles/Vol] 107 mmol/L 98 - 10 7 mmol/L [facility] CO2 [Moles/Vol] 24 mmol/L 20 - 31 mmol/L [facility] Creatinine [Mass/Vol] 0.54 mg/dL 0.50 - 0.90 mg/dL [facility] GFR >60 >60 mL/min [facility] GFR Non- >60 >60 mL/min [facility] GFR/1.73 sq M.predicted MDRD (S/P/Bld) [Vol rate/Area] [facility] Glucose [Mass/Vol] 150 mg/dL High 70 - 99 mg/dL [facility] Interpretation and review of laboratory results Abnormal [facility] Potassium [Moles/Vol] 3.3 mmol/L Low 3.7 - 5.3 mmol/L [facility] Sodium [Moles/Vol] 142 mmol/L 135 - 144 mmol/L [facility] Urea nitrogen (BldV) [Mass/Vol] 11 mg/dL 6 - 20 mg/dL [facility] CBC with Auto Differentialon 08-10-2021 Absolute Eos # 0.45 High [facility] Absolute Immature Granulocyte <0.03 [facility] Absolute Lymph # 2.27 [facility] Absolute Antelope # 0.58 [facility] Basophils (Bld) [#/Vol] 0.05 10*3/uL [facility] Basophils/100 WBC (Bld) 1 % 0 - 2 % [facility] Eosinophils/100 WBC (Bld) 5 % High 1 - 4 % [facility] Hematocrit (Bld) [Volume fraction] 28.0 % Low 36.3 - 47.1 % [facility] Hemoglobin (Bld) [Mass/Vol] 8.9 g/dL Low 11.9 - 15.1 g/dL [facility] Immature granulocytes/100 WBC (Bld) 0 % 0 [facility] Interpretation and review of laboratory results Abnormal [facility] Lymphocytes/100 WBC (Bld) 25 % 24 - 43 % [facility] MCH (RBC) [Entitic mass] 31.3 pg 25.2 - 33.5 pg [facility] MCHC (RBC) [Mass/Vol] 31.8 g/dL 28.4 - 34.8 g/dL [facility] MCV (RBC) [Entitic vol] 98.6 fL 82.6 - 102.9 fL [facility] Monocytes/100 WBC (Bld) 7 % 3 - 12 % [facility] NRBC Automated 0.0 0.0 per 100 WBC [facility] Platelet distribution width (Bld) [Ratio] 17.5 % High 11.8 - 14.4 % [facility] Platelet mean volume (Bld) [Entitic vol] 8.8 fL 8.1 - 13.5 fL [facility] Platelets (Bld) [#/Vol] 576 10*3/uL High [facility] RBC (Bld) [#/Vol] 2.84 10*6/uL Low 3.95 - 5.1 1 m/uL [facility] RBC (Bld) [#/Vol] ANISOCYTOSIS PRESENT [facility] Seg Neutrophils 62 % 36 - 65 % [facility] Segs Absolute 5.62 [facility] WBC (Bld) [#/Vol] 9.0 10*3/uL [facility] Magnesiumon 08-10-2021 Magnesium [Mass/Vol] 1.8 mg/dL 1.6 - 2 .6 mg/dL [facility] POC Glucose Fingerstickon Glucose [Mass/Vol] 188 mg/dL High 65 - 105 mg/dL [facility] Interpretation and review of laboratory results Abnormal [facility] Glucose [Mass/Vol] 218 mg/dL High 65 - 105 mg/dL [facility] Interpretation and review of laboratory results Abnormal [facility] Glucose [Mass/Vol] 133 mg/dL High 65 - 105 mg/dL [facility] Interpretation and review of laboratory results Abnormal [facility] POC Glucose Fingerstickon Glucose [Mass/Vol] 204 mg/dL High 65 - 105 mg/dL [facility] Interpretation and review of laboratory results Abnormal [facility] Glucose [Mass/Vol] 184 mg/dL High 65 - 105 mg/dL [facility] Interpretation and review of laboratory results Abnormal [facility] Glucose [Mass/Vol] 202 mg/dL High 65 - 105 mg/dL [facility] Interpretation and review of laboratory results Abnormal [facility] Glucose [Mass/Vol] 126 mg/dL High 65 - 105 mg/dL [facility] Interpretation and review of laboratory results Abnormal [facility] Basic Metabolic Panel w/ Ref rafael to MGon 08-08-2021 Anion gap [Moles/Vol] 11 mmol/L 9 - 17 mmol/L [facility] Calcium [Mass/Vol] 7.9 mg/dL Low 8.6 - 10. 4 mg/dL [facility] Chloride [Moles/Vol] 108 mmol/L High 98 - 10 7 mmol/L [facility] CO2 [Moles/Vol] 22 mmol/L 20 - 31 mmol/L [facility] Creatinine [Mass/Vol] 0.59 mg/dL 0.50 - 0.90 mg/dL [facility] GFR >60 >60 mL/min [facility] GFR Non- >60 >60 mL/min [facility] GFR/1.73 sq M.predicted MDRD (S/P/Bld) [Vol rate/Area] [facility] Glucose [Mass/Vol] 193 mg/dL High 70 - 99 mg/dL [facility] Interpretation and review of laboratory results Abnormal [facility] Potassium [Moles/Vol] 3.8 mmol/L 3.7 - 5.3 mmol/L [facility] Sodium [Moles/Vol] 141 mmol/L 135 - 144 mmol/L [facility] Urea nitrogen (BldV) [Mass/Vol] 11 mg/dL 6 - 20 mg/dL [facility] CBC with Auto Differentialon 08-08-2021 Absolute Eos # 0.29 [facility] Absolute Immature Granulocyte 0.04 [facility] Absolute Lymph # 2.17 [facility] Absolute Antelope # 0.64 [facility] RS [facility] Basophils (Bld) [#/Vol] 0.04 10*3/uL [facility] Basophils/100 WBC (Bld) 0 % 0 - 2 % [facility] Eosinophils/100 WBC (Bld) 3 % 1 - 4 % [facility] Hematocrit (Bld) [Volume fraction] 24.6 % Low 36.3 - 47.1 % [facility] Hemoglobin (Bld) [Mass/Vol] 8.0 g/dL Low 11.9 - 15.1 g/dL [facility] Immature granulocytes/100 WBC (Bld) 0 % 0 [facility] Interpretation and review of laboratory results Abnormal [facility] Lymphocytes/100 WBC (Bld) 23 % Low 24 - 43 % [facility] MCH (RBC) [Entitic mass] 31.7 pg 25.2 - 33.5 pg [facility] MCHC (RBC) [Mass/Vol] 32.5 g/dL 28.4 - 34.8 g/dL [facility] MCV (RBC) [Entitic vol] 97.6 fL 82.6 - 102.9 fL [facility] Monocytes/100 WBC (Bld) 7 % 3 - 12 % [facility] NRBC Automated 0.0 0.0 per 100 WBC [facility] Platelet distribution width (Bld) [Ratio] 17.8 % High 11.8 - 14.4 % [facility] Platelet mean volume (Bld) [Entitic vol] 8.9 fL 8.1 - 13.5 fL [facility] Platelets (Bld) [#/Vol] 514 10*3/uL High [facility] RBC (Bld) [#/Vol] 2.52 10*6/uL Low 3.95 - 5.1 1 m/uL [facility] RBC (Bld) [#/Vol] ANISOCYTOSIS PRESENT [facility] Seg Neutrophils 67 % High 36 - 65 % [facility] Segs Absolute 6.36 [facility] WBC (Bld) [#/Vol] 9.5 10*3/uL [facility] EKG 12 LeadOrdered By: Armando Galloway on 08-08-2021 Atrial Rate 90 BPM [facility] [employer] Work Phone: P [place] 43 degrees [facility] Work Phone: P-R Interval 122 ms [facility] Work Phone: Q-T Interval 374 ms [facility] Work Phone: QRS Duration 78 ms [facility] Work Phone: QTc Calculation (Bazett) 457 ms [facility] Work Phone: R [place] -4 degrees [facility] [employer] Work Phone: T [place] 51 degrees [facility] [employer] Work Phone: Ventricular Rate 90 BPM [facility] [employer] Work Phone: [facility] [employer] Work Phone: EKG 12 Leadon 08-08-2021 MHPN STV MUSE [facility] [employer] Work Phone: POC Glucose Fingerstickon Glucose [Mass/Vol] 147 mg/dL High 65 - 105 mg/dL [facility] [employer] Interpretation and review of laboratory results Abnormal [facility] Glucose [Mass/Vol] 157 mg/dL High 65 - 105 mg/dL [facility] Interpretation and review of laboratory results Abnormal [facility] Glucose [Mass/Vol] 207 mg/dL High 65 - 105 mg/dL [facility] Interpretation and review of laboratory results Abnormal [facility] Glucose [Mass/Vol] 214 mg/dL High 65 - 105 mg/dL [facility] Interpretation and review of laboratory results Abnormal [facility] POC Glucose Fingerstickon Glucose [Mass/Vol] 206 mg/dL High 65 - 105 mg/dL [facility] Interpretation and review of laboratory results Abnormal [facility] Glucose [Mass/Vol] 202 mg/dL High 65 - 105 mg/dL [facility] Interpretation and review of laboratory results Abnormal [facility] Glucose [Mass/Vol] 179 mg/dL High 65 - 105 mg/dL [facility] Interpretation and review of laboratory results Abnormal [facility] Glucose [Mass/Vol] 144 mg/dL High 65 - 105 mg/dL [facility] Interpretation and review of laboratory results Abnormal [facility] Glucose [Mass/Vol] 154 mg/dL High 65 - 105 mg/dL [facility] Interpretation and review of laboratory results Abnormal [facility] Glucose [Mass/Vol] 150 mg/dL High 65 - 105 mg/dL [facility] Interpretation and review of laboratory results Abnormal [facility] Glucose [Mass/Vol] 153 mg/dL High 65 - 105 mg/dL [facility] Interpretation and review of laboratory results Abnormal [facility] TSHon 08-07-2021 Interpretation and review of laboratory results Abnormal [facility] TSH Qn 7.90 m[IU]/L High [facility] XR CERVICAL SPINE FLEXION AN D EXTENSIONon 08-07-2021 MHPN RIS CONSOLIDATED MHPN RIS CONSOLIDATED [facility] Work Phone: Radiology Study observation (narrative) [facility] [employer] Work Phone: XR CERVICAL SPINE FLEXION AN D EXTENSIONOrdered By: Paramjit Saenz on 08-07-2021 [facility] Work Phone: Basic Metabolic Panel w/ Ref rafael to MGon 08-06-2021 Anion gap [Moles/Vol] 11 mmol/L 9 - 17 mmol/L [facility] Calcium [Mass/Vol] 8.5 mg/dL Low 8.6 - 10. 4 mg/dL [facility] Chloride [Moles/Vol] 109 mmol/L High 98 - 10 7 mmol/L [facility] CO2 [Moles/Vol] 23 mmol/L 20 - 31 mmol/L [facility] Creatinine [Mass/Vol] 0.55 mg/dL 0.50 - 0.90 mg/dL [facility] GFR >60 >60 mL/min [facility] GFR Non- >60 >60 mL/min [facility] GFR/1.73 sq M.predicted MDRD (S/P/Bld) [Vol rate/Area] [facility] Glucose [Mass/Vol] 48 mg/dL Low 70 - 99 mg/dL [facility] Interpretation and review of laboratory results Abnormal [facility] Potassium [Moles/Vol] 3.6 mmol/L Low 3.7 - 5.3 mmol/L [facility] Sodium [Moles/Vol] 143 mmol/L 135 - 144 mmol/L [facility] Urea nitrogen (BldV) [Mass/Vol] 11 mg/dL 6 - 20 mg/dL [facility] CBC with Auto Differentialon 08-06-2021 Absolute Eos # 0.28 [facility] Absolute Immature Granulocyte 0.07 [facility] Absolute Lymph # 2.04 [facility] Absolute Antelope # 0.61 [facility] Basophils (Bld) [#/Vol] 0.04 10*3/uL [facility] Basophils/100 WBC (Bld) 0 % 0 - 2 % [facility] Eosinophils/100 WBC (Bld) 2 % 1 - 4 % [facility] Hematocrit (Bld) [Volume fraction] 26.3 % Low 36.3 - 47.1 % [facility] Hemoglobin (Bld) [Mass/Vol] 8.6 g/dL Low 11.9 - 15.1 g/dL [facility] Immature granulocytes/100 WBC (Bld) 1 % High 0 [facility] Interpretation and review of laboratory results Abnormal [facility] Lymphocytes/100 WBC (Bld) 17 % Low 24 - 43 % [facility] MCH (RBC) [Entitic mass] 31.9 pg 25.2 - 33.5 pg [facility] MCHC (RBC) [Mass/Vol] 32.7 g/dL 28.4 - 34.8 g/dL [facility] MCV (RBC) [Entitic vol] 97.4 fL 82.6 - 102.9 fL [facility] Monocytes/100 WBC (Bld) 5 % 3 - 12 % [facility] NRBC Automated 0.0 0.0 per 100 WBC [facility] Platelet distribution width (Bld) [Ratio] 18.0 % High 11.8 - 14.4 % [facility] Platelet mean volume (Bld) [Entitic vol] 8.4 fL 8.1 - 13.5 fL [facility] Platelets (Bld) [#/Vol] 565 10*3/uL High [facility] RBC (Bld) [#/Vol] 2.70 10*6/uL Low 3.95 - 5.1 1 m/uL [facility] RBC (Bld) [#/Vol] ANISOCYTOSIS PRESENT [facility] Seg Neutrophils 75 % High 36 - 65 % [facility] Segs Absolute 9.28 High [facility] WBC (Bld) [#/Vol] 12.3 10*3/uL High [facility] No Panel Informationon 08-06 Interpretation and review of laboratory results Abnormal [facility] POC Glucose Fingerstickon Glucose [Mass/Vol] 158 mg/dL High 65 - 105 mg/dL [facility] Interpretation and review of laboratory results Abnormal [facility] Glucose [Mass/Vol] 125 mg/dL High 65 - 105 mg/dL [facility] Interpretation and review of laboratory results Abnormal [facility] Glucose [Mass/Vol] 128 mg/dL High 65 - 105 mg/dL [facility] Interpretation and review of laboratory results Abnormal [facility] Glucose [Mass/Vol] 106 mg/dL High 65 - 105 mg/dL [facility] Interpretation and review of laboratory results Abnormal [facility] Glucose [Mass/Vol] 109 mg/dL High 65 - 105 mg/dL [facility] Interpretation and review of laboratory results Abnormal [facility] Glucose [Mass/Vol] 39 mg/dL Critically low 65 - 10 5 mg/dL [facility] Interpretation and review of laboratory results Abnormal [facility] Glucose [Mass/Vol] 43 mg/dL Low 65 - 105 mg/dL [facility] Glucose [Mass/Vol] 116 mg/dL High 65 - 105 mg/dL [facility] Arterial Blood Gas, POCon FIO2 30.0 [facility] HCO3 (Bld) [Moles/Vol] 26.0 mmol/L 21.0 - 28.0 mmol/L [facility] O2 Device/Flow/% Adult Ventilator [facility] Oxygen saturation in Blood 99 % High 94.0 - 98.0 % [facility] POC pCO2 38.7 [facility] POC pH 7.435 [facility] POC PO2 112.3 High [facility] Positive Base Excess, Art 2 [facility] Sample Site Arterial Line [facility] Basic Metabolic Panel w/ Ref rafael to MGon 08-05-2021 Anion gap [Moles/Vol] 11 mmol/L 9 - 17 mmol/L [facility] Calcium [Mass/Vol] 8.5 mg/dL Low 8.6 - 10. 4 mg/dL [facility] Chloride [Moles/Vol] 109 mmol/L High 98 - 10 7 mmol/L [facility] CO2 [Moles/Vol] 23 mmol/L 20 - 31 mmol/L [facility] Creatinine [Mass/Vol] 0.53 mg/dL 0.50 - 0.90 mg/dL [facility] GFR >60 >60 mL/min [facility] GFR Non- >60 >60 mL/min [facility] GFR/1.73 sq M.predicted MDRD (S/P/Bld) [Vol rate/Area] [facility] Glucose [Mass/Vol] 121 mg/dL High 70 - 99 mg/dL [facility] Interpretation and review of laboratory results Abnormal [facility] Potassium [Moles/Vol] 3.5 mmol/L Low 3.7 - 5.3 mmol/L [facility] Sodium [Moles/Vol] 143 mmol/L 135 - 144 mmol/L [facility] Urea nitrogen (BldV) [Mass/Vol] 14 mg/dL 6 - 20 mg/dL [facility] CBC with Auto Differentialon 08-05-2021 Absolute Eos # 0.25 [facility] Absolute Immature Granulocyte 0.05 [facility] Absolute Lymph # 1.83 [facility] Absolute Antelope # 0.57 [facility] RS [facility] Basophils (Bld) [#/Vol] 10*3/uL [facility] Basophils/100 WBC (Bld) 0 % 0 - 2 % [facility] Eosinophils/100 WBC (Bld) 3 % 1 - 4 % [facility] Hematocrit (Bld) [Volume fraction] 24.2 % Low 36.3 - 47.1 % [facility] Hemoglobin (Bld) [Mass/Vol] 7.7 g/dL Low 11.9 - 15.1 g/dL [facility] Immature granulocytes/100 WBC (Bld) 1 % High 0 [facility] Interpretation and review of laboratory results Abnormal [facility] Lymphocytes/100 WBC (Bld) 19 % Low 24 - 43 % [facility] MCH (RBC) [Entitic mass] 31.2 pg 25.2 - 33.5 pg [facility] MCHC (RBC) [Mass/Vol] 31.8 g/dL 28.4 - 34.8 g/dL [facility] MCV (RBC) [Entitic vol] 98.0 fL 82.6 - 102.9 fL [facility] Monocytes/100 WBC (Bld) 6 % 3 - 12 % [facility] NRBC Automated 0.0 0.0 per 100 WBC [facility] Platelet distribution width (Bld) [Ratio] 18.3 % High 11.8 - 14.4 % [facility] Platelet mean volume (Bld) [Entitic vol] 8.6 fL 8.1 - 13.5 fL [facility] Platelets (Bld) [#/Vol] 458 10*3/uL High [facility] RBC (Bld) [#/Vol] 2.47 10*6/uL Low 3.95 - 5.1 1 m/uL [facility] RBC (Bld) [#/Vol] ANISOCYTOSIS PRESENT [facility] Seg Neutrophils 71 % High 36 - 65 % [facility] Segs Absolute 6.77 [facility] WBC (Bld) [#/Vol] 9.5 10*3/uL [facility] Magnesiumon 08-05-2021 Magnesium [Mass/Vol] 1.8 mg/dL 1.6 - 2 .6 mg/dL [facility] No Panel Informationon 08-05 Interpretation and review of laboratory results Abnormal [facility] POC Glucose Fingerstickon Glucose [Mass/Vol] 130 mg/dL High 65 - 105 mg/dL [facility] Interpretation and review of laboratory results Abnormal [facility] Glucose [Mass/Vol] 139 mg/dL High 65 - 105 mg/dL [facility] Interpretation and review of laboratory results Abnormal [facility] Glucose [Mass/Vol] 126 mg/dL High 65 - 105 mg/dL [facility] Interpretation and review of laboratory results Abnormal [facility] Glucose [Mass/Vol] 151 mg/dL High 65 - 105 mg/dL [facility] Interpretation and review of laboratory results Abnormal [facility] POCT Glucoseon 08-05-2021 Glucose [Mass/Vol] 112 mg/dL High 74 - 100 mg/dL [facility] Basic Metabolic Panel w/ Ref rafael to MGon 08-04-2021 Anion gap [Moles/Vol] 11 mmol/L 9 - 17 mmol/L [facility] Calcium [Mass/Vol] 8.1 mg/dL Low 8.6 - 10. 4 mg/dL [facility] Chloride [Moles/Vol] 108 mmol/L High 98 - 10 7 mmol/L [facility] CO2 [Moles/Vol] 22 mmol/L 20 - 31 mmol/L [facility] Creatinine [Mass/Vol] 0.57 mg/dL 0.50 - 0.90 mg/dL [facility] GFR >60 >60 mL/min [facility] GFR Non- >60 >60 mL/min [facility] GFR/1.73 sq M.predicted MDRD (S/P/Bld) [Vol rate/Area] [facility] Glucose [Mass/Vol] 195 mg/dL High 70 - 99 mg/dL [facility] Interpretation and review of laboratory results Abnormal [facility] Potassium [Moles/Vol] 3.5 mmol/L Low 3.7 - 5.3 mmol/L [facility] Sodium [Moles/Vol] 141 mmol/L 135 - 144 mmol/L [facility] Urea nitrogen (BldV) [Mass/Vol] 17 mg/dL 6 - 20 mg/dL [facility] CBC with Auto Differentialon 08-04-2021 Absolute Eos # 0.24 [facility] Absolute Immature Granulocyte 0.07 [facility] Absolute Lymph # 1.77 [facility] Absolute Antelope # 0.72 [facility] Basophils (Bld) [#/Vol] 10*3/uL [facility] Basophils/100 WBC (Bld) 0 % 0 - 2 % [facility] Eosinophils/100 WBC (Bld) 2 % 1 - 4 % [facility] Hematocrit (Bld) [Volume fraction] 23.7 % Low 36.3 - 47.1 % [facility] Hemoglobin (Bld) [Mass/Vol] 8.0 g/dL Low 11.9 - 15.1 g/dL [facility] Immature granulocytes/100 WBC (Bld) 1 % High 0 [facility] Interpretation and review of laboratory results Abnormal [facility] Lymphocytes/100 WBC (Bld) 17 % Low 24 - 43 % [facility] MCH (RBC) [Entitic mass] 32.3 pg 25.2 - 33.5 pg [facility] MCHC (RBC) [Mass/Vol] 33.8 g/dL 28.4 - 34.8 g/dL [facility] MCV (RBC) [Entitic vol] 95.6 fL 82.6 - 102.9 fL [facility] Monocytes/100 WBC (Bld) 7 % 3 - 12 % B [facility] NRBC Automated 0.0 0.0 per 100 WBC [facility] Platelet distribution width (Bld) [Ratio] 18.4 % High 11.8 - 14.4 % [facility] Platelet mean volume (Bld) [Entitic vol] 8.7 fL 8.1 - 13.5 fL [facility] Platelets (Bld) [#/Vol] 429 10*3/uL [facility] RBC (Bld) [#/Vol] 2.48 10*6/uL Low 3.95 - 5.1 1 m/uL [facility] RBC (Bld) [#/Vol] ANISOCYTOSIS PRESENT [facility] Seg Neutrophils 73 % High 36 - 65 % [facility] Segs Absolute 7.64 [facility] WBC (Bld) [#/Vol] 10.5 10*3/uL [facility] Lipaseon 08-04-2021 Lipase [Catalytic activity/Vol] 16 U/L 13 - 60 U/L [facility] Magnesiumon 08-04-2021 Magnesium [Mass/Vol] 1.9 mg/dL 1.6 - 2 .6 mg/dL [facility] POC Glucose Fingerstickon Glucose [Mass/Vol] 170 mg/dL High 65 - 105 mg/dL [facility] Interpretation and review of laboratory results Abnormal [facility] Glucose [Mass/Vol] 118 mg/dL High 65 - 105 mg/dL [facility] Interpretation and review of laboratory results Abnormal [facility] Glucose [Mass/Vol] 226 mg/dL High 65 - 105 mg/dL [facility] Interpretation and review of laboratory results Abnormal [facility] Glucose [Mass/Vol] 192 mg/dL High 65 - 105 mg/dL [facility] Interpretation and review of laboratory results Abnormal [facility] Arterial Blood Gas, POCon Adarsh Test NOT APPLICABLE [facility] FIO2 30.0 [facility] [facility] HCO3 (Bld) [Moles/Vol] 24.5 mmol/L 21.0 - 28.0 mmol/L [facility] Mode PRVC [facility] O2 Device/Flow/% Adult Ventilator [facility] Oxygen saturation in Blood 99 % High 94.0 - 98.0 % [facility] POC pCO2 31.7 Low [facility] POC pH 7.497 High [facility] POC PO2 116.0 High [facility] Positive Base Excess, Art 2 [facility] Sample Site Arterial Line [facility] Basic Metabolic Panel w/ Ref rafael to MGon 08-03-2021 Anion gap [Moles/Vol] 10 mmol/L 9 - 17 mmol/L [facility] Calcium [Mass/Vol] 8.3 mg/dL Low 8.6 - 10. 4 mg/dL [facility] Chloride [Moles/Vol] 107 mmol/L 98 - 10 7 mmol/L [facility] CO2 [Moles/Vol] 22 mmol/L 20 - 31 mmol/L [facility] Creatinine [Mass/Vol] 0.6 mg/dL 0.50 - 0.90 mg/dL [facility] GFR >60 >60 mL/min [facility] GFR Non- >60 >60 mL/min [facility] GFR/1.73 sq M.predicted MDRD (S/P/Bld) [Vol rate/Area] [facility] Glucose [Mass/Vol] 210 mg/dL High 70 - 99 mg/dL [facility] Interpretation and review of laboratory results Abnormal [facility] Potassium [Moles/Vol] 3.6 mmol/L Low 3.7 - 5.3 mmol/L [facility] Sodium [Moles/Vol] 139 mmol/L 135 - 144 mmol/L [facility] Urea nitrogen (BldV) [Mass/Vol] 15 mg/dL 6 - 20 mg/dL [facility] CBC with Auto Differentialon 08-03-2021 Absolute Eos # 0.19 [facility] Absolute Immature Granulocyte 0.11 [facility] Absolute Lymph # 1.74 [facility] Absolute Antelope # 0.92 [facility] Basophils (Bld) [#/Vol] 0.03 10*3/uL [facility] Basophils/100 WBC (Bld) 0 % 0 - 2 % B [facility] Eosinophils/100 WBC (Bld) 2 % 1 - 4 % [facility] Hematocrit (Bld) [Volume fraction] 24.8 % Low 36.3 - 47.1 % [facility] Hemoglobin (Bld) [Mass/Vol] 8.3 g/dL Low 11.9 - 15.1 g/dL [facility] Immature granulocytes/100 WBC (Bld) 1 % High 0 [facility] Interpretation and review of laboratory results Abnormal [facility] Lymphocytes/100 WBC (Bld) 15 % Low 24 - 43 % [facility] MCH (RBC) [Entitic mass] 31.6 pg 25.2 - 33.5 pg [facility] MCHC (RBC) [Mass/Vol] 33.5 g/dL 28.4 - 34.8 g/dL [facility] MCV (RBC) [Entitic vol] 94.3 fL 82.6 - 102.9 fL [facility] Monocytes/100 WBC (Bld) 8 % 3 - 12 % [facility] NRBC Automated 0.0 0.0 per 100 WBC [facility] Platelet distribution width (Bld) [Ratio] 18.5 % High 11.8 - 14.4 % [facility] Platelet mean volume (Bld) [Entitic vol] 8.8 fL 8.1 - 13.5 fL [facility] Platelets (Bld) [#/Vol] 429 10*3/uL [facility] RBC (Bld) [#/Vol] 2.63 10*6/uL Low 3.95 - 5.1 1 m/uL [facility] RBC (Bld) [#/Vol] ANISOCYTOSIS PRESENT [facility] Seg Neutrophils 74 % High 36 - 65 % [facility] Segs Absolute 8.94 High [facility] WBC (Bld) [#/Vol] 11.9 10*3/uL High [facility] No Panel Informationon 08-03 Interpretation and review of laboratory results Abnormal [facility] POC Glucose Fingerstickon Glucose [Mass/Vol] 302 mg/dL High 65 - 105 mg/dL [facility] Interpretation and review of laboratory results Abnormal [facility] Glucose [Mass/Vol] 246 mg/dL High 65 - 105 mg/dL [facility] Interpretation and review of laboratory results Abnormal [facility] Glucose [Mass/Vol] 196 mg/dL High 65 - 105 mg/dL [facility] Interpretation and review of laboratory results Abnormal [facility] Glucose [Mass/Vol] 222 mg/dL High 65 - 105 mg/dL [facility] Interpretation and review of laboratory results Abnormal [facility] Glucose [Mass/Vol] 216 mg/dL High 65 - 105 mg/dL [facility] Interpretation and review of laboratory results Abnormal [facility] POCT Glucoseon 08-03-2021 Glucose [Mass/Vol] 218 mg/dL High 74 - 100 mg/dL [facility] Arterial Blood Gas, POCon Adarsh Test NOT APPLICABLE [facility] FIO2 30.0 [facility] HCO3 (Bld) [Moles/Vol] 24.2 mmol/L 21.0 - 28.0 mmol/L [facility] Mode PRVC [facility] O2 Device/Flow/% Adult Ventilator [facility] Oxygen saturation in Blood 99 % High 94.0 - 98.0 % [facility] POC pCO2 35.7 [facility] POC pH 7.439 [facility] POC PO2 119.9 High [facility] Positive Base Excess, Art 0 [facility] Sample Site Arterial Line [facility] Basic Metabolic Panel w/ Ref rafael to MGon 08-02-2021 Anion gap [Moles/Vol] 9 mmol/L 9 - 17 mmol/L [facility] Calcium [Mass/Vol] 8.0 mg/dL Low 8.6 - 10. 4 mg/dL [facility] Chloride [Moles/Vol] 106 mmol/L 98 - 10 7 mmol/L [facility] CO2 [Moles/Vol] 22 mmol/L 20 - 31 mmol/L [facility] Creatinine [Mass/Vol] 0.67 mg/dL 0.50 - 0.90 mg/dL [facility] GFR >60 >60 mL/min [facility] GFR Non- >60 >60 mL/min [facility] GFR/1.73 sq M.predicted MDRD (S/P/Bld) [Vol rate/Area] [facility] Glucose [Mass/Vol] 247 mg/dL High 70 - 99 mg/dL [facility] Interpretation and review of laboratory results Abnormal [facility] Potassium [Moles/Vol] 3.3 mmol/L Low 3.7 - 5.3 mmol/L [facility] Sodium [Moles/Vol] 137 mmol/L 135 - 144 mmol/L [facility] Urea nitrogen (BldV) [Mass/Vol] 15 mg/dL 6 - 20 mg/dL [facility] CBC with Auto Differentialon 08-02-2021 Absolute Eos # 0.15 [facility] Absolute Immature Granulocyte 0.26 [facility] Absolute Lymph # 1.97 [facility] Absolute Antelope # 0.99 [facility] RS [facility] Basophils (Bld) [#/Vol] 0.04 10*3/uL [facility] Basophils/100 WBC (Bld) 0 % 0 - 2 % [facility] Eosinophils/100 WBC (Bld) 1 % 1 - 4 % [facility] Hematocrit (Bld) [Volume fraction] 23.5 % Low 36.3 - 47.1 % [facility] Hemoglobin (Bld) [Mass/Vol] 8.0 g/dL Low 11.9 - 15.1 g/dL [facility] Immature granulocytes/100 WBC (Bld) 2 % High 0 [facility] Interpretation and review of laboratory results Abnormal [facility] Lymphocytes/100 WBC (Bld) 16 % Low 24 - 43 % [facility] MCH (RBC) [Entitic mass] 32.0 pg 25.2 - 33.5 pg [facility] MCHC (RBC) [Mass/Vol] 34.0 g/dL 28.4 - 34.8 g/dL [facility] MCV (RBC) [Entitic vol] 94.0 fL 82.6 - 102.9 fL [facility] Monocytes/100 WBC (Bld) 8 % 3 - 12 % [facility] NRBC Automated 0.0 0.0 per 100 WBC [facility] Platelet distribution width (Bld) [Ratio] 18.5 % High 11.8 - 14.4 % [facility] Platelet mean volume (Bld) [Entitic vol] 8.4 fL 8.1 - 13.5 fL [facility] Platelets (Bld) [#/Vol] 398 10*3/uL [facility] RBC (Bld) [#/Vol] 2.50 10*6/uL Low 3.95 - 5.1 1 m/uL [facility] RBC (Bld) [#/Vol] ANISOCYTOSIS PRESENT [facility] Seg Neutrophils 73 % High 36 - 65 % [facility] Segs Absolute 8.88 High [facility] WBC (Bld) [#/Vol] 12.3 10*3/uL High [facility] Magnesiumon 08-02-2021 Magnesium [Mass/Vol] 1.7 mg/dL 1.6 - 2 .6 mg/dL [facility] No Panel Informationon 08-02 Interpretation and review of laboratory results Abnormal [facility] POC Glucose Fingerstickon Glucose [Mass/Vol] 194 mg/dL High 65 - 105 mg/dL [facility] Interpretation and review of laboratory results Abnormal [facility] Glucose [Mass/Vol] 112 mg/dL High 65 - 105 mg/dL [facility] Interpretation and review of laboratory results Abnormal [facility] Glucose [Mass/Vol] 172 mg/dL High 65 - 105 mg/dL [facility] Interpretation and review of laboratory results Abnormal [facility] Glucose [Mass/Vol] 251 mg/dL High 65 - 105 mg/dL [facility] Interpretation and review of laboratory results Abnormal [facility] Glucose [Mass/Vol] 240 mg/dL High 65 - 105 mg/dL [facility] Interpretation and review of laboratory results Abnormal [facility] POCT Glucoseon 08-02-2021 Glucose [Mass/Vol] 286 mg/dL High 74 - 100 mg/dL [facility] Basic Metabolic Panel w/ Ref rafael to MGon 08-01-2021 Anion gap [Moles/Vol] 13 mmol/L 9 - 17 mmol/L [facility] Calcium [Mass/Vol] 7.9 mg/dL Low 8.6 - 10. 4 mg/dL [facility] Chloride [Moles/Vol] 105 mmol/L 98 - 10 7 mmol/L [facility] CO2 [Moles/Vol] 20 mmol/L 20 - 31 mmol/L [facility] Creatinine [Mass/Vol] 0.72 mg/dL 0.50 - 0.90 mg/dL [facility] GFR >60 >60 mL/min [facility] GFR Non- >60 >60 mL/min [facility] GFR/1.73 sq M.predicted MDRD (S/P/Bld) [Vol rate/Area] [facility] Glucose [Mass/Vol] 212 mg/dL High 70 - 99 mg/dL [facility] Interpretation and review of laboratory results Abnormal [facility] Potassium [Moles/Vol] 3.2 mmol/L Low 3.7 - 5.3 mmol/L [facility] Sodium [Moles/Vol] 138 mmol/L 135 - 144 mmol/L [facility] Urea nitrogen (BldV) [Mass/Vol] 15 mg/dL 6 - 20 mg/dL [facility] CBC with Auto Differentialon 08-01-2021 Absolute Eos # 0.14 [facility] Absolute Immature Granulocyte 0.56 High [facility] Absolute Lymph # 2.66 [facility] Absolute Antelope # 0.70 [facility] Basophils (Bld) [#/Vol] 0.00 10*3/uL [facility] Basophils/100 WBC (Bld) 0 % 0 - 2 % B [facility] Eosinophils/100 WBC (Bld) 1 % 1 - 4 % [facility] Hematocrit (Bld) [Volume fraction] 27.1 % Low 36.3 - 47.1 % [facility] Hemoglobin (Bld) [Mass/Vol] 9.1 g/dL Low 11.9 - 15.1 g/dL [facility] Immature granulocytes/100 WBC (Bld) 4 % High 0 [facility] Interpretation and review of laboratory results Abnormal [facility] Lymphocytes/100 WBC (Bld) 19 % Low 24 - 44 % [facility] MCH (RBC) [Entitic mass] 31.7 pg 25.2 - 33.5 pg [facility] MCHC (RBC) [Mass/Vol] 33.6 g/dL 28.4 - 34.8 g/dL [facility] MCV (RBC) [Entitic vol] 94.4 fL 82.6 - 102.9 fL [facility] Monocytes/100 WBC (Bld) 5 % 1 - 7 % [facility] Morphology Malachi (Bld) [Interp] ANISOCYTOSIS PRESENT [facility] NRBC Automated 0.0 0.0 per 100 WBC [facility] Platelet distribution width (Bld) [Ratio] 18.8 % High 11.8 - 14.4 % [facility] Platelet mean volume (Bld) [Entitic vol] 8.7 fL 8.1 - 13.5 fL [facility] Platelets (Bld) [#/Vol] 490 10*3/uL High [facility] RBC (Bld) [#/Vol] 2.87 10*6/uL Low 3.95 - 5.1 1 m/uL [facility] Seg Neutrophils 71 % High 36 - 66 % [facility] Segs Absolute 9.94 High [facility] WBC (Bld) [#/Vol] 14.0 10*3/uL High [facility] Magnesiumon 08-01-2021 Magnesium [Mass/Vol] 1.7 mg/dL 1.6 - 2 .6 mg/dL [facility] POC Glucose Fingerstickon Glucose [Mass/Vol] 124 mg/dL High 65 - 105 mg/dL [facility] Interpretation and review of laboratory results Abnormal [facility] Glucose [Mass/Vol] 201 mg/dL High 65 - 105 mg/dL [facility] Interpretation and review of laboratory results Abnormal [facility] Glucose [Mass/Vol] 264 mg/dL High 65 - 105 mg/dL [facility] Interpretation and review of laboratory results Abnormal [facility] Glucose [Mass/Vol] 184 mg/dL High 65 - 105 mg/dL [facility] Interpretation and review of laboratory results Abnormal [facility] Glucose [Mass/Vol] 241 mg/dL High 65 - 105 mg/dL [facility] Interpretation and review of laboratory results Abnormal [facility] Triglycerideon 08-01-2021 Interpretation and review of laboratory results Abnormal [facility] Triglyceride [Mass/Vol] 164 mg/dL High <150 B ON [facility] Basic Metabolic Panel w/ Ref rafael to MGon 07-31-2021 Anion gap [Moles/Vol] 14 mmol/L 9 - 17 mmol/L [facility] Calcium [Mass/Vol] 8.0 mg/dL Low 8.6 - 10. 4 mg/dL [facility] Chloride [Moles/Vol] 106 mmol/L 98 - 10 7 mmol/L [facility] CO2 [Moles/Vol] 20 mmol/L 20 - 31 mmol/L [facility] Creatinine [Mass/Vol] 0.78 mg/dL 0.50 - 0.90 mg/dL [facility] GFR >60 >60 mL/min [facility] GFR Non- >60 >60 mL/min [facility] GFR/1.73 sq M.predicted MDRD (S/P/Bld) [Vol rate/Area] [facility] Glucose [Mass/Vol] 209 mg/dL High 70 - 99 mg/dL [facility] Interpretation and review of laboratory results Abnormal [facility] Potassium [Moles/Vol] 3.3 mmol/L Low 3.7 - 5.3 mmol/L [facility] Sodium [Moles/Vol] 140 mmol/L 135 - 144 mmol/L [facility] Urea nitrogen (BldV) [Mass/Vol] 14 mg/dL 6 - 20 mg/dL [facility] CBC with Auto Differentialon 07-31-2021 Absolute Eos # 0.28 [facility] Absolute Immature Granulocyte 0.98 High [facility] Absolute Lymph # 2.94 [facility] Absolute Antelope # 0.98 High [facility] Basophils (Bld) [#/Vol] 0.00 10*3/uL [facility] Basophils/100 WBC (Bld) 0 % 0 - 2 % [facility] Eosinophils/100 WBC (Bld) 2 % 1 - 4 % [facility] Hematocrit (Bld) [Volume fraction] 27.4 % Low 36.3 - 47.1 % [facility] Hemoglobin (Bld) [Mass/Vol] 9.5 g/dL Low 11.9 - 15.1 g/dL [facility] Immature granulocytes/100 WBC (Bld) 7 % High 0 [facility] Interpretation and review of laboratory results Abnormal [facility] Lymphocytes/100 WBC (Bld) 21 % Low 24 - 44 % [facility] MCH (RBC) [Entitic mass] 31.8 pg 25.2 - 33.5 pg [facility] MCHC (RBC) [Mass/Vol] 34.7 g/dL 28.4 - 34.8 g/dL [facility] MCV (RBC) [Entitic vol] 91.6 fL 82.6 - 102.9 fL [facility] Monocytes/100 WBC (Bld) 7 % 1 - 7 % [facility] Morphology Malachi (Bld) [Interp] ANISOCYTOSIS PRESENT [facility] NRBC Automated 0.0 0.0 per 100 WBC [facility] Platelet distribution width (Bld) [Ratio] 18.4 % High 11.8 - 14.4 % [facility] Platelet mean volume (Bld) [Entitic vol] 8.7 fL 8.1 - 13.5 fL [facility] Platelets (Bld) [#/Vol] 502 10*3/uL High [facility] RBC (Bld) [#/Vol] 2.99 10*6/uL Low 3.95 - 5.1 1 m/uL [facility] Seg Neutrophils 63 % 36 - 66 % [facility] Segs Absolute 8.82 High [facility] WBC (Bld) [#/Vol] 14.0 10*3/uL High [facility] Hemoglobin and Hematocriton 07-31-2021 Hematocrit (Bld) [Volume fraction] 27.4 % Low 36.3 - 47.1 % [facility] Hemoglobin (Bld) [Mass/Vol] 9.2 g/dL Low 11.9 - 15.1 g/dL [facility] Interpretation and review of laboratory results Abnormal [facility] Magnesiumon 07-31-2021 Magnesium [Mass/Vol] 1.6 mg/dL 1.6 - 2 .6 mg/dL [facility] POC Glucose Fingerstickon Glucose [Mass/Vol] 134 mg/dL High 65 - 105 mg/dL [facility] Interpretation and review of laboratory results Abnormal [facility] Glucose [Mass/Vol] 230 mg/dL High 65 - 105 mg/dL [facility] Interpretation and review of laboratory results Abnormal [facility] Glucose [Mass/Vol] 214 mg/dL High 65 - 105 mg/dL [facility] Interpretation and review of laboratory results Abnormal [facility] Glucose [Mass/Vol] 197 mg/dL High 65 - 105 mg/dL [facility] Interpretation and review of laboratory results Abnormal [facility] Glucose [Mass/Vol] 164 mg/dL High 65 - 105 mg/dL [facility] Interpretation and review of laboratory results Abnormal [facility] Arterial Blood Gas, POCon Adarsh Test NOT APPLICABLE [facility] FIO2 30.0 [facility] HCO3 (Bld) [Moles/Vol] 24.4 mmol/L 21.0 - 28.0 mmol/L [facility] Interpretation and review of laboratory results Abnormal [facility] Mode PRVC [facility] O2 Device/Flow/% Adult Ventilator [facility] Oxygen saturation in Blood 98 % 94.0 - 98.0 % [facility] POC pCO2 33.3 Low [facility] POC pH 7.473 High [facility] POC PO2 104.7 [facility] Positive Base Excess, Art 1 [facility] Sample Site Arterial Line [facility] Basic Metabolic Panel w/ Ref rafael to MGon 07-30-2021 Anion gap [Moles/Vol] 10 mmol/L 9 - 17 mmol/L [facility] Calcium [Mass/Vol] 8.0 mg/dL Low 8.6 - 10. 4 mg/dL [facility] Chloride [Moles/Vol] 105 mmol/L 98 - 10 7 mmol/L [facility] CO2 [Moles/Vol] 22 mmol/L 20 - 31 mmol/L [facility] Creatinine [Mass/Vol] 0.7 mg/dL 0.50 - 0.90 mg/dL [facility] GFR >60 >60 mL/min [facility] GFR Non- >60 >60 mL/min [facility] GFR/1.73 sq M.predicted MDRD (S/P/Bld) [Vol rate/Area] [facility] Glucose [Mass/Vol] 276 mg/dL High 70 - 99 mg/dL [facility] Interpretation and review of laboratory results Abnormal [facility] Potassium [Moles/Vol] 3.8 mmol/L 3.7 - 5.3 mmol/L [facility] Sodium [Moles/Vol] 137 mmol/L 135 - 144 mmol/L [facility] Urea nitrogen (BldV) [Mass/Vol] 14 mg/dL 6 - 20 mg/dL [facility] CBC with Auto Differentialon 07-30-2021 Absolute Eos # 0.00 [facility] Absolute Immature Granulocyte 0.71 High [facility] Absolute Lymph # 3.69 [facility] Absolute Antelope # 0.57 [facility] Basophils (Bld) [#/Vol] 0.00 10*3/uL [facility] Basophils/100 WBC (Bld) 0 % 0 - 2 % [facility] Eosinophils/100 WBC (Bld) 0 % Low 1 - 4 % [facility] Hematocrit (Bld) [Volume fraction] 27.0 % Low 36.3 - 47.1 % [facility] Hemoglobin (Bld) [Mass/Vol] 9.3 g/dL Low 11.9 - 15.1 g/dL [facility] Immature granulocytes/100 WBC (Bld) 5 % High 0 [facility] Interpretation and review of laboratory results Abnormal [facility] Lymphocytes/100 WBC (Bld) 26 % 24 - 44 % [facility] MCH (RBC) [Entitic mass] 31.5 pg 25.2 - 33.5 pg [facility] MCHC (RBC) [Mass/Vol] 34.4 g/dL 28.4 - 34.8 g/dL [facility] MCV (RBC) [Entitic vol] 91.5 fL 82.6 - 102.9 fL [facility] Monocytes/100 WBC (Bld) 4 % 1 - 7 % [facility] Morphology Malachi (Bld) [Interp] ANISOCYTOSIS PRESENT [facility] NRBC Automated 0.0 0.0 per 100 WBC [facility] Platelet distribution width (Bld) [Ratio] 17.7 % High 11.8 - 14.4 % [facility] Platelet mean volume (Bld) [Entitic vol] 8.8 fL 8.1 - 13.5 fL [facility] Platelets (Bld) [#/Vol] 491 10*3/uL High [facility] RBC (Bld) [#/Vol] 2.95 10*6/uL Low 3.95 - 5.1 1 m/uL [facility] Seg Neutrophils 65 % 36 - 66 % [facility] Segs Absolute 9.23 High [facility] WBC (Bld) [#/Vol] 14.2 10*3/uL High [facility] Hemoglobin and Hematocriton 07-30-2021 Hematocrit (Bld) [Volume fraction] 29.5 % Low 36.3 - 47.1 % [facility] Hemoglobin (Bld) [Mass/Vol] 9.6 g/dL Low 11.9 - 15.1 g/dL [facility] Interpretation and review of laboratory results Abnormal [facility] POC Glucose Fingerstickon Glucose [Mass/Vol] 106 mg/dL High 65 - 105 mg/dL [facility] Interpretation and review of laboratory results Abnormal [facility] Glucose [Mass/Vol] 231 mg/dL High 65 - 105 mg/dL [facility] Interpretation and review of laboratory results Abnormal [facility] TYPE AND SCREENon 07-30-2021 ABO/Rh Positive [facility] Arm Band Number BE [id number] [facility] Blood Bank Blood Product Expiration Date [id number] [facility] Blood Bank ISBT Product Blood Type 6200 [facility] Blood Bank Unit Type and Rh Positive [facility] Blood product type Nom (BPU) Leukocyte Reduced Red Cell [facility] Blood product unit ID (Dose) [#] [id number] [facility] Crossmatch Result COMPATIBLE [facility] Dispense Status TRANSFUSED [facility] Expiration Date 08/01/2021,2359 [facility] Product Code Blood Bank [id number] B [facility] Transfusion Status OK TO TRANSFUSE B [facility] Unit Divison 0 [facility] Unit Issue Date/Time [id number] [facility] N [facility] Arterial Blood Gas, POCon Adarsh Test NOT APPLICABLE [facility] FIO2 30.0 [facility] HCO3 (Bld) [Moles/Vol] 23.0 mmol/L 21.0 - 28.0 mmol/L [facility] Interpretation and review of laboratory results Abnormal [facility] Mode PRVC [facility] Negative Base Excess, Art 1 [facility] [facility] O2 Device/Flow/% Adult Ventilator [facility] Oxygen saturation in Blood 99 % High 94.0 - 98.0 % [facility] POC pCO2 35.1 [facility] POC pH 7.425 [facility] POC PO2 120.9 High [facility] Sample Site Arterial Line [facility] Basic Metabolic Panel w/ Ref rafael to MGon 07-29-2021 Anion gap [Moles/Vol] 9 mmol/L 9 - 17 mmol/L [facility] Calcium [Mass/Vol] 7.8 mg/dL Low 8.6 - 10. 4 mg/dL [facility] Chloride [Moles/Vol] 106 mmol/L 98 - 10 7 mmol/L [facility] CO2 [Moles/Vol] 21 mmol/L 20 - 31 mmol/L [facility] Creatinine [Mass/Vol] 0.71 mg/dL 0.50 - 0.90 mg/dL [facility] GFR >60 >60 mL/min [facility] GFR Non- >60 >60 mL/min [facility] GFR/1.73 sq M.predicted MDRD (S/P/Bld) [Vol rate/Area] [facility] Glucose [Mass/Vol] 246 mg/dL High 70 - 99 mg/dL [facility] Interpretation and review of laboratory results Abnormal [facility] Potassium [Moles/Vol] 3.6 mmol/L Low 3.7 - 5.3 mmol/L [facility] Sodium [Moles/Vol] 136 mmol/L 135 - 144 mmol/L [facility] Urea nitrogen (BldV) [Mass/Vol] 11 mg/dL 6 - 20 mg/dL [facility] CBC with Auto Differentialon 07-29-2021 Absolute Eos # 0.00 [facility] Absolute Immature Granulocyte 0.43 High [facility] Absolute Lymph # 3.13 [facility] Absolute Antelope # 0.32 [facility] Basophils (Bld) [#/Vol] 0.00 10*3/uL [facility] Basophils/100 WBC (Bld) 0 % 0 - 2 % [facility] Eosinophils/100 WBC (Bld) 0 % Low 1 - 4 % [facility] Hematocrit (Bld) [Volume fraction] 22.5 % Low 36.3 - 47.1 % [facility] Hemoglobin (Bld) [Mass/Vol] 7.4 g/dL Low 11.9 - 15.1 g/dL [facility] Immature granulocytes/100 WBC (Bld) 4 % High 0 [facility] Interpretation and review of laboratory results Abnormal [facility] Lymphocytes/100 WBC (Bld) 29 % 24 - 44 % [facility] MCH (RBC) [Entitic mass] 30.7 pg 25.2 - 33.5 pg [facility] MCHC (RBC) [Mass/Vol] 32.9 g/dL 28.4 - 34.8 g/dL [facility] MCV (RBC) [Entitic vol] 93.4 fL 82.6 - 102.9 fL [facility] Monocytes/100 WBC (Bld) 3 % 1 - 7 % [facility] Morphology Malachi (Bld) [Interp] ANISOCYTOSIS PRESENT [facility] NRBC Automated 0.0 0.0 per 100 WBC [facility] Platelet distribution width (Bld) [Ratio] 19.6 % High 11.8 - 14.4 % [facility] Platelet mean volume (Bld) [Entitic vol] 8.9 fL 8.1 - 13.5 fL [facility] Platelets (Bld) [#/Vol] 500 10*3/uL High [facility] RBC (Bld) [#/Vol] 2.41 10*6/uL Low 3.95 - 5.1 1 m/uL [facility] Seg Neutrophils 64 % 36 - 66 % [facility] Segs Absolute 6.92 [facility] WBC (Bld) [#/Vol] 10.8 10*3/uL [facility] Hemoglobin and Hematocriton 07-29-2021 Hematocrit (Bld) [Volume fraction] 29.9 % Low 36.3 - 47.1 % [facility] Hemoglobin (Bld) [Mass/Vol] 10.1 g/dL Low 11.9 - 15.1 g/dL [facility] Interpretation and review of laboratory results Abnormal [facility] Hematocrit (Bld) [Volume fraction] 24.9 % Low 36.3 - 47.1 % [facility] Hemoglobin (Bld) [Mass/Vol] 8.4 g/dL Low 11.9 - 15.1 g/dL [facility] Interpretation and review of laboratory results Abnormal [facility] POC Glucose Fingerstickon Glucose [Mass/Vol] 169 mg/dL High 65 - 105 mg/dL [facility] Interpretation and review of laboratory results Abnormal [facility] Glucose [Mass/Vol] 296 mg/dL High 65 - 105 mg/dL [facility] Interpretation and review of laboratory results Abnormal [facility] Glucose [Mass/Vol] 276 mg/dL High 65 - 105 mg/dL [facility] Interpretation and review of laboratory results Abnormal [facility] Glucose [Mass/Vol] 217 mg/dL High 65 - 105 mg/dL [facility] Interpretation and review of laboratory results Abnormal [facility] Arterial Blood Gas, POCon FIO2 30.0 [facility] HCO3 (Bld) [Moles/Vol] 22.0 mmol/L 21.0 - 28.0 mmol/L [facility] Mode PRVC [facility] Negative Base Excess, Art 2 [facility] O2 Device/Flow/% Adult Ventilator [facility] Oxygen saturation in Blood 98 % 94.0 - 98.0 % [facility] POC pCO2 30.9 Low [facility] POC pH 7.460 High [facility] POC PO2 101.0 [facility] Sample Site Arterial Line [facility] Basic Metabolic Panel w/ Ref rafael to MGon 07-28-2021 Anion gap [Moles/Vol] 9 mmol/L 9 - 17 mmol/L [facility] Calcium [Mass/Vol] 8.1 mg/dL Low 8.6 - 10. 4 mg/dL [facility] Chloride [Moles/Vol] 108 mmol/L High 98 - 10 7 mmol/L [facility] CO2 [Moles/Vol] 20 mmol/L 20 - 31 mmol/L [facility] Creatinine [Mass/Vol] 0.73 mg/dL 0.50 - 0.90 mg/dL [facility] GFR >60 >60 mL/min [facility] GFR Non- >60 >60 mL/min [facility] GFR/1.73 sq M.predicted MDRD (S/P/Bld) [Vol rate/Area] [facility] Glucose [Mass/Vol] 195 mg/dL High 70 - 99 mg/dL [facility] Interpretation and review of laboratory results Abnormal [facility] Potassium [Moles/Vol] 4.2 mmol/L 3.7 - 5.3 mmol/L [facility] Sodium [Moles/Vol] 137 mmol/L 135 - 144 mmol/L [facility] Urea nitrogen (BldV) [Mass/Vol] 8 mg/dL 6 - 20 mg/dL [facility] CBC with Auto Differentialon 07-28-2021 Absolute Eos # 0.00 [facility] Absolute Immature Granulocyte 0.64 High [facility] Absolute Lymph # 2.69 [facility] U[facility] Absolute Antelope # 0.00 Low [facility] Basophils (Bld) [#/Vol] 0.00 10*3/uL [facility] Basophils/100 WBC (Bld) 0 % 0 - 2 % [facility] Eosinophils/100 WBC (Bld) 0 % Low 1 - 4 % [facility] Hematocrit (Bld) [Volume fraction] 24.4 % Low 36.3 - 47.1 % [facility] Hemoglobin (Bld) [Mass/Vol] 7.9 g/dL Low 11.9 - 15.1 g/dL [facility] Immature granulocytes/100 WBC (Bld) 5 % High 0 [facility] Interpretation and review of laboratory results Abnormal [facility] Lymphocytes/100 WBC (Bld) 21 % Low 24 - 44 % [facility] MCH (RBC) [Entitic mass] 30.5 pg 25.2 - 33.5 pg [facility] MCHC (RBC) [Mass/Vol] 32.4 g/dL 28.4 - 34.8 g/dL [facility] MCV (RBC) [Entitic vol] 94.2 fL 82.6 - 102.9 fL [facility] Monocytes/100 WBC (Bld) 0 % Low 1 - 7 % [facility] Morphology Malachi (Bld) [Interp] ANISOCYTOSIS PRESENT [facility] NRBC Automated 0.0 0.0 per 100 WBC [facility] Platelet distribution width (Bld) [Ratio] 19.0 % High 11.8 - 14.4 % [facility] Platelet mean volume (Bld) [Entitic vol] 8.8 fL 8.1 - 13.5 fL [facility] Platelets (Bld) [#/Vol] 490 10*3/uL High [facility] RBC (Bld) [#/Vol] 2.59 10*6/uL Low 3.95 - 5.1 1 m/uL [facility] Seg Neutrophils 74 % High 36 - 66 % [facility] Segs Absolute 9.47 High [facility] WBC (Bld) [#/Vol] 12.8 10*3/uL High [facility] Calcium, Ionizedon Calcium [Moles/Vol] 1.15 mmol/L 1.13 - 1 .33 mmol/L [facility] Hemoglobin and Hematocriton 07-28-2021 Hematocrit (Bld) [Volume fraction] 23.9 % Low 36.3 - 47.1 % [facility] Hemoglobin (Bld) [Mass/Vol] 8.2 g/dL Low 11.9 - 15.1 g/dL [facility] Interpretation and review of laboratory results Abnormal [facility] No Panel Informationon 07-28 Interpretation and review of laboratory results Abnormal [facility] POC Glucose Fingerstickon Glucose [Mass/Vol] 183 mg/dL High 65 - 105 mg/dL [facility] Interpretation and review of laboratory results Abnormal [facility] Glucose [Mass/Vol] 187 mg/dL High 65 - 105 mg/dL [facility] Interpretation and review of laboratory results Abnormal [facility] Glucose [Mass/Vol] 163 mg/dL High 65 - 105 mg/dL [facility] Interpretation and review of laboratory results Abnormal [facility] Glucose [Mass/Vol] 182 mg/dL High 65 - 105 mg/dL [facility] Interpretation and review of laboratory results Abnormal [facility] POCT Glucoseon 07-28-2021 Glucose [Mass/Vol] 177 mg/dL High 74 - 100 mg/dL [facility] CBC with Auto Differentialon 07-27-2021 Basophils (Bld) [#/Vol] 0.00 10*3/uL [facility] Basophils/100 WBC (Bld) 0 % 0 - 2 % [facility] Eosinophils/100 WBC (Bld) 0 % Low 1 - 4 % [facility] Hematocrit (Bld) [Volume fraction] 25.3 % Low 36.3 - 47.1 % [facility] Hemoglobin (Bld) [Mass/Vol] 8.5 g/dL Low 11.9 - 15.1 g/dL [facility] Lymphocytes/100 WBC (Bld) 19 % Low 24 - 44 % [facility] MCH (RBC) [Entitic mass] 30.6 pg 25.2 - 33.5 pg [facility] MCV (RBC) [Entitic vol] 91.0 fL 82.6 - 102.9 fL [facility] Morphology Malachi (Bld) [Interp] ANISOCYTOSIS PRESENT [facility] RBC (Bld) [#/Vol] 2.78 10*6/uL Low 3.95 - 5.1 1 m/uL [facility] Calcium, Ionizedon 2 Calcium [Moles/Vol] 1.19 mmol/L 1.13 - 1 .33 mmol/L [facility] Culture, Blood 2on 2 Bacteria identified Cx Nom (Unsp spec) NO GROWTH 5 DAYS [facility] Special Requests L HAND 20ML [facility] Specimen Description .BLOOD [facility] Hemoglobin and Hematocriton 07-27-2021 Hematocrit (Bld) [Volume fraction] 26.4 % Low 36.3 - 47.1 % [facility] Hemoglobin (Bld) [Mass/Vol] 9.0 g/dL Low 11.9 - 15.1 g/dL [facility] Interpretation and review of laboratory results Abnormal [facility] Magnesiumon 07-27-2021 Magnesium [Mass/Vol] 1.8 mg/dL 1.6 - 2 .6 mg/dL [facility] POC Glucose Fingerstickon Glucose [Mass/Vol] 149 mg/dL High 65 - 105 mg/dL [facility] Interpretation and review of laboratory results Abnormal [facility] Glucose [Mass/Vol] 162 mg/dL High 65 - 105 mg/dL [facility] Interpretation and review of laboratory results Abnormal [facility] Glucose [Mass/Vol] 160 mg/dL High 65 - 105 mg/dL [facility] Interpretation and review of laboratory results Abnormal [facility] Glucose [Mass/Vol] 147 mg/dL High 65 - 105 mg/dL [facility] Interpretation and review of laboratory results Abnormal [facility] Glucose [Mass/Vol] 135 mg/dL High 65 - 105 mg/dL [facility] Interpretation and review of laboratory results Abnormal [facility] Glucose [Mass/Vol] 204 mg/dL High 65 - 105 mg/dL [facility] Interpretation and review of laboratory results Abnormal [facility] Basic Metabolic Panel w/ Ref rafael to MGon 07-14-2021 Anion gap [Moles/Vol] 14 mmol/L 9 - 17 mmol/L [facility] Calcium [Mass/Vol] 8.2 mg/dL Low 8.6 - 10. 4 mg/dL [facility] Chloride [Moles/Vol] 97 mmol/L Low 98 - 10 7 mmol/L [facility] CO2 [Moles/Vol] 30 mmol/L 20 - 31 mmol/L [facility] Creatinine [Mass/Vol] 0.92 mg/dL High 0.50 - 0.90 mg/dL [facility] GFR >60 >60 mL/min [facility] GFR Non- >60 >60 mL/min [facility] GFR/1.73 sq M.predicted MDRD (S/P/Bld) [Vol rate/Area] [facility] Comment on above: Average GFR for 50-5 9 years old: 93 mL/min/1.73sq m Chronic Kidney Disease: <60 mL/min/1.73sq m Kidney failure: <15 mL/min/1.73sq m eGFR calculated using average adult body mass. Additional eGFR calculator available at: [email or web address]_[email or web address].htm Glucose [Mass/Vol] 96 mg/dL 70 - 99 mg/dL [facility] Interpretation and review of laboratory results Abnormal [facility] Potassium [Moles/Vol] 2.0 mmol/L Critically low 3.7 - 5.3 mmol/L [facility] Sodium [Moles/Vol] 141 mmol/L 135 - 144 mmol/L [facility] Urea nitrogen (BldV) [Mass/Vol] 5 mg/dL Low 6 - 20 mg/dL [facility] Urea nitrogen/Creatinine (Bld) [Mass ratio] 5 Low [facility] CBC with Auto Differentialon 07-14-2021 Absolute Eos # 0.00 [facility] Absolute Lymph # 1.80 [facility] Absolute Antelope # 0.80 [facility] Basophils (Bld) [#/Vol] 0.00 10*3/uL [facility] Basophils/100 WBC (Bld) 0 % 0 - 2 % [facility] Eosinophils/100 WBC (Bld) 0 % 0 - 5 % [facility] Hematocrit (Bld) [Volume fraction] 29.9 % Low 36 - 46 % [facility] Hemoglobin.gastrointest inal spec 1 Ql (Stl) 10.1 g/dL Low 12.0 - 16.0 g/dL [facility] Interpretation and review of laboratory results Abnormal [facility] Lymphocytes/100 WBC (Bld) 22 % 15 - 40 % [facility] MCH (RBC) [Entitic mass] 28.4 pg 26 - 34 pg [facility] MCHC (RBC) [Mass/Vol] 33.8 g/dL 31 - 3 7 g/dL [facility] MCV (RBC) [Entitic vol] 83.9 fL 80 - 100 fL [facility] Monocytes/100 WBC (Bld) 10 % High 4 - 8 % [facility] Morphology Malachi (Bld) [Interp] MODERATE ANISOCYTOSIS [facility] Platelet distribution width (Bld) [Ratio] 19.9 % High 12.1 - 15.2 % [facility] Platelets (Bld) [#/Vol] 701 10*3/uL High [facility] RBC (Bld) [#/Vol] 3.56 10*6/uL Low 4.0 - 5.2 m/uL [facility] Segmented neutrophils/100 WBC (Bld) 68 % 47 - 75 % [facility] Segs Absolute 5.60 [facility] WBC (Bld) [#/Vol] 8.2 10*3/uL [facility] Magnesiumon 07-14-2021 Magnesium [Mass/Vol] 1.6 mg/dL 1.6 - 2 .6 mg/dL [facility] CBC with Auto Differentialon 07-13-2021 Absolute Eos # 0.10 [facility] Absolute Lymph # 1.60 [facility] Absolute Antelope # 1.10 High [facility] Basophils (Bld) [#/Vol] 0.00 10*3/uL [facility] Basophils/100 WBC (Bld) 0 % 0 - 2 % [facility] Eosinophils/100 WBC (Bld) 1 % 0 - 5 % [facility] Hematocrit (Bld) [Volume fraction] 31.2 % Low 36 - 46 % [facility] Hemoglobin.gastrointest inal spec 1 Ql (Stl) 10.4 g/dL Low 12.0 - 16.0 g/dL [facility] Interpretation and review of laboratory results Abnormal [facility] Lymphocytes/100 WBC (Bld) 20 % 15 - 40 % [facility] MCH (RBC) [Entitic mass] 28.1 pg 26 - 34 pg [facility] MCHC (RBC) [Mass/Vol] 33.2 g/dL 31 - 3 7 g/dL [facility] MCV (RBC) [Entitic vol] 84.7 fL 80 - 100 fL [facility] Monocytes/100 WBC (Bld) 13 % High 4 - 8 % [facility] Morphology Malachi (Bld) [Interp] MODERATE ANISOCYTOSIS [facility] Morphology Malachi (Bld) [Interp] Scanned to verify automated differential. [facility] Platelet distribution width (Bld) [Ratio] 20.5 % High 12.1 - 15.2 % [facility] Platelets (Bld) [#/Vol] 725 10*3/uL High [facility] RBC (Bld) [#/Vol] 3.68 10*6/uL Low 4.0 - 5.2 m/uL [facility] Segmented neutrophils/100 WBC (Bld) 66 % 47 - 75 % [facility] Segs Absolute 5.30 [facility] WBC (Bld) [#/Vol] 8.1 10*3/uL [facility] COVID-19, Rapidon 07-13-2021 Interpretation and review of laboratory results Abnormal [facility] SARS-CoV-2 (COVID-19) RNA CAL+probe Ql (Unsp spec) Detected Abnormal Not Detected [facility] Comment on above: Rapid NAAT: [...] this assay. Fact sheet for Healthcare Providers: https://www.fda.gov/media/676442/download Fact sheet for Patients: https://www.fda.gov/media/580098/download Methodology: Isothermal Nucleic Acid Amplification Results reported to the appropriate Health Department Specimen Description .NASOPHARYNGEAL SWAB [facility] Comprehensive Metabolic Pane l w/ Reflex to MGon 07-13-2021 Albumin [Mass/Vol] 2.5 g/dL Low 3.5 - 5.2 g/dL [facility] ALP (Bld) [Catalytic activity/Vol] 450 U/L High 35 - 104 U/L [facility] ALT [Catalytic activity/Vol] 13 U/L 5 - 33 U/L [facility] Anion gap [Moles/Vol] 16 mmol/L 9 - 17 mmol/L [facility] AST [Catalytic activity/Vol] 29 U/L <32 [facility] Bilirubin [Mass/Vol] 0.64 mg/dL 0.30 - 1.20 mg/dL [facility] Calcium [Mass/Vol] 8.7 mg/dL 8.6 - 10. 4 mg/dL [facility] Chloride [Moles/Vol] 102 mmol/L 98 - 10 7 mmol/L [facility] CO2 [Moles/Vol] 25 mmol/L 20 - 31 mmol/L [facility] Creatinine [Mass/Vol] 0.85 mg/dL 0.50 - 0.90 mg/dL [facility] Free PSA/Total PSA [Mass fraction] 6.5 g/dL 6.4 - 8.3 g/dL [facility] GFR >60 >60 mL/min [facility] GFR Non- >60 >60 mL/min [facility] GFR/1.73 sq M.predicted MDRD (S/P/Bld) [Vol rate/Area] [facility] Comment on above: Average GFR for 50-5 9 years old: 93 mL/min/1.73sq m Chronic Kidney Disease: <60 mL/min/1.73sq m Kidney failure: <15 mL/min/1.73sq m eGFR calculated using average adult body mass. Additional eGFR calculator available at: [email or web address].Embly/multiple_crcl_2011.htm Glucose [Mass/Vol] 79 mg/dL 70 - 99 mg/dL [facility] Interpretation and review of laboratory results Abnormal [facility] Potassium [Moles/Vol] 2.2 mmol/L Critically low 3.7 - 5.3 mmol/L [facility] Sodium [Moles/Vol] 143 mmol/L 135 - 144 mmol/L [facility] Urea nitrogen (BldV) [Mass/Vol] 7 mg/dL 6 - 20 mg/dL [facility] Urea nitrogen/Creatinine (Bld) [Mass ratio] 8 Low [facility] Lactate Dehydrogenaseon 06-18 Interpretation and review of laboratory results Abnormal [facility] LD 317 U/L High 135 - 214 U/L [facility] Lactic Acidon 07-13-2021 Lactate [Moles/Vol] 1 mmol/L 0.5 - 2. 2 mmol/L [facility] Magnesiumon 07-13-2021 Interpretation and review of laboratory results Abnormal [facility] Magnesium [Mass/Vol] 1.5 mg/dL Low 1.6 - 2 .6 mg/dL [facility] XR CHEST PORTABLEon 07-14-19 22 Left infrahilar [...] anchor noted within the left humeral head. [facility] RIS CONSOLIDATED Lionel Mas MD - 07/13/2021 [...] 4 weeks post treatment to document resolution. [employer] Work Phone: Radiology Study observation (narrative) [employer] Phone: XR CHEST PORTABLEOrdered By: Lionel Mas on 07-13-2021 [employer] Work Phone: Basic Metabolic Panel w/ Ref rafael to MGon 07-10-2021 Anion gap [Moles/Vol] 14 mmol/L 9 - 17 mmol/L [employer] [facility] Calcium [Mass/Vol] 7.4 mg/dL Low 8.6 - 10. 4 mg/dL [facility] Chloride [Moles/Vol] 110 mmol/L High 98 - 10 7 mmol/L [facility] CO2 [Moles/Vol] 16 mmol/L Low 20 - 31 mmol/L [employer] [facility] Creatinine [Mass/Vol] 1.01 mg/dL High 0.50 - 0.90 mg/dL [facility] GFR >60 >60 mL/min [facility] GFR Non- 56 mL/min Low >60 [facility] GFR/1.73 sq M.predicted MDRD (S/P/Bld) [Vol rate/Area] [facility] Glucose [Mass/Vol] 65 mg/dL Low 70 - 99 mg/dL [facility] Potassium [Moles/Vol] 3.3 mmol/L Low 3.7 - 5.3 mmol/L [facility] Sodium [Moles/Vol] 140 mmol/L 135 - 144 mmol/L [facility] Urea nitrogen (BldV) [Mass/Vol] 7 mg/dL 6 - 20 mg/dL [facility] C-Reactive Proteinon 022 CRP [Mass/Vol] 161.7 mg/L High 0.0 - 5.0 mg/L [facility] CBC with Auto Differentialon 07-10-2021 Absolute Eos # 0.18 [facility] Absolute Immature Granulocyte 0.00 [facility] Absolute Lymph # 3.40 [facility] Absolute Antelope # 0.72 [facility] Basophils (Bld) [#/Vol] 0.00 10*3/uL [facility] Basophils/100 WBC (Bld) 0 % 0 - 2 % B [facility] Eosinophils/100 WBC (Bld) 1 % 1 - 4 % [facility] Hematocrit (Bld) [Volume fraction] 25.6 % Low 36.3 - 47.1 % [facility] Hemoglobin.gastrointest inal spec 1 Ql (Stl) 8.3 g/dL Low 11.9 - 15.1 g/dL [facility] Immature granulocytes/100 WBC (Bld) 0 % 0 [facility] Interpretation and review of laboratory results Abnormal [facility] Lymphocytes/100 WBC (Bld) 19 % Low 24 - 44 % [facility] MCH (RBC) [Entitic mass] 27.8 pg 25.2 - 33.5 pg [facility] MCHC (RBC) [Mass/Vol] 32.4 g/dL 28.4 - 34.8 g/dL [facility] MCV (RBC) [Entitic vol] 85.6 fL 82.6 - 102.9 fL [facility] Monocytes/100 WBC (Bld) 4 % 1 - 7 % [facility] Morphology Malachi (Bld) [Interp] ANISOCYTOSIS PRESENT [facility] NRBC Automated 0.0 0.0 per 100 WBC [facility] Platelet distribution width (Bld) [Ratio] 20.4 % High 11.8 - 14.4 % [facility] Platelet mean volume (Bld) [Entitic vol] 9.0 fL 8.1 - 13.5 fL [facility] Platelets (Bld) [#/Vol] 530 10*3/uL High [facility] RBC (Bld) [#/Vol] 2.99 10*6/uL Low 3.95 - 5.1 1 m/uL [facility] Seg Neutrophils 76 % High 36 - 66 % [facility] Segs Absolute 13.60 High [facility] WBC (Bld) [#/Vol] 17.9 10*3/uL High [facility] [facility] COVID-19, Rapidon 07-10-2021 SARS-CoV-2 (COVID-19) RNA CAL+probe Ql (Unsp spec) Not detected Not Detected [facility] Specimen Description .NASOPHARYNGEAL SWAB [facility] CT CERVICAL SPINE WO CONTRAS Ton 07-10-2021 MHPN RIS CONSOLIDATED MHPN RIS CONSOLIDATED [facility] Work Phone: Radiology Study observation (narrative) [facility] Work Phone: CT CERVICAL SPINE WO CONTRAS TOrdered By: Earl Kohler on 07-10-2021 [facility] Work Phone: Insert PICC lineon 2 [facility] Work Phone: Magnesiumon 07-10-2021 Magnesium [Mass/Vol] 1.8 mg/dL 1.6 - 2 .6 mg/dL [facility] [employer] No Panel Informationon 07-10 Interpretation and review of laboratory results Abnormal [facility] POC Glucose Fingerstickon Glucose [Mass/Vol] 137 mg/dL High 65 - 105 mg/dL [facility] [employer] Interpretation and review of laboratory results Abnormal [facility] Glucose [Mass/Vol] 77 mg/dL 65 - 105 mg/dL [facility] [employer] XR CERVICAL SPINE FLEXION AN D EXTENSIONon 07-10-2021 MHPN RIS CONSOLIDATED MHPN RIS CONSOLIDATED [facility] [employer] Work Phone: [facility] [employer] Work Phone: Radiology Study observation (narrative) [facility] [employer] Work Phone: Basic Metabolic Panel w/ Ref rafael to MGon 07-09-2021 Anion gap [Moles/Vol] 11 mmol/L 9 - 17 mmol/L [facility] [employer] Calcium [Mass/Vol] 7.7 mg/dL Low 8.6 - 10. 4 mg/dL [facility] [employer] Chloride [Moles/Vol] 109 mmol/L High 98 - 10 7 mmol/L [facility] [employer] CO2 [Moles/Vol] 20 mmol/L 20 - 31 mmol/L [facility] [employer] Creatinine [Mass/Vol] 0.81 mg/dL 0.50 - 0.90 mg/dL [facility] [employer] GFR >60 >60 mL/min [facility] GFR Non- >60 >60 mL/min [facility] [employer] GFR/1.73 sq M.predicted MDRD (S/P/Bld) [Vol rate/Area] [facility] [employer] Glucose [Mass/Vol] 133 mg/dL High 70 - 99 mg/dL [facility] [employer] Potassium [Moles/Vol] 3.9 mmol/L 3.7 - 5.3 mmol/L [facility] [employer] Sodium [Moles/Vol] 140 mmol/L 135 - 144 mmol/L [facility] Urea nitrogen (BldV) [Mass/Vol] 7 mg/dL 6 - 20 mg/dL [facility] C-Reactive Proteinon 022 CRP [Mass/Vol] 124.1 mg/L High 0.0 - 5.0 mg/L [facility] CBC with Auto Differentialon 07-09-2021 Absolute Eos # 0.40 [facility] Absolute Immature Granulocyte 0.08 [facility] Absolute Lymph # 2.06 [facility] Absolute Antelope # 0.48 [facility] RS [facility] Basophils (Bld) [#/Vol] 10*3/uL [facility] Basophils/100 WBC (Bld) 0 % 0 - 2 % [facility] Eosinophils/100 WBC (Bld) 4 % 1 - 4 % [facility] Hematocrit (Bld) [Volume fraction] 27.9 % Low 36.3 - 47.1 % [facility] Hemoglobin.gastrointest inal spec 1 Ql (Stl) 8.5 g/dL Low 11.9 - 15.1 g/dL [facility] Immature granulocytes/100 WBC (Bld) 1 % High 0 [facility] Interpretation and review of laboratory results Abnormal [facility] Lymphocytes/100 WBC (Bld) 18 % Low 24 - 43 % [facility] MCH (RBC) [Entitic mass] 27.3 pg 25.2 - 33.5 pg [facility] MCHC (RBC) [Mass/Vol] 30.5 g/dL 28.4 - 34.8 g/dL [facility] MCV (RBC) [Entitic vol] 89.7 fL 82.6 - 102.9 fL [facility] Monocytes/100 WBC (Bld) 4 % 3 - 12 % [facility] NRBC Automated 0.0 0.0 per 100 WBC [facility] Platelet distribution width (Bld) [Ratio] 19.9 % High 11.8 - 14.4 % [facility] Platelet mean volume (Bld) [Entitic vol] 8.9 fL 8.1 - 13.5 fL [facility] Platelets (Bld) [#/Vol] 434 10*3/uL [facility] RBC (Bld) [#/Vol] 3.11 10*6/uL Low 3.95 - 5.1 1 m/uL [facility] RBC (Bld) [#/Vol] ANISOCYTOSIS PRESENT [facility] Seg Neutrophils 73 % High 36 - 65 % [facility] Segs Absolute 8.48 High [facility] WBC (Bld) [#/Vol] 11.5 10*3/uL High [facility] COVID-19, Rapidon 07-09-2021 SARS-CoV-2 (COVID-19) RNA CAL+probe Ql (Unsp spec) Not detected Not Detected [facility] Specimen Description .NASOPHARYNGEAL SWAB [facility] No Panel Informationon 07-09 Interpretation and review of laboratory results Abnormal [facility] POC Glucose Fingerstickon Glucose [Mass/Vol] 101 mg/dL 65 - 105 mg/dL [facility] Glucose [Mass/Vol] 146 mg/dL High 65 - 105 mg/dL [facility] Interpretation and review of laboratory results Abnormal [facility] Glucose [Mass/Vol] 99 mg/dL 65 - 105 mg/dL [facility] Glucose [Mass/Vol] 138 mg/dL High 65 - 105 mg/dL [facility] Interpretation and review of laboratory results Abnormal [facility] Glucose [Mass/Vol] 171 mg/dL High 65 - 105 mg/dL [facility] Interpretation and review of laboratory results Abnormal [facility] Glucose [Mass/Vol] 279 mg/dL High 65 - 105 mg/dL [facility] Interpretation and review of laboratory results Abnormal [facility] Glucose [Mass/Vol] 59 mg/dL Low 65 - 105 mg/dL [facility] Interpretation and review of laboratory results Abnormal [facility] Glucose [Mass/Vol] 59 mg/dL Low 65 - 105 mg/dL [facility] Interpretation and review of laboratory results Abnormal [facility] Glucose [Mass/Vol] 58 mg/dL Low 65 - 105 mg/dL [facility] Interpretation and review of laboratory results Abnormal [facility] Glucose [Mass/Vol] 306 mg/dL High 65 - 105 mg/dL [facility] Interpretation and review of laboratory results Abnormal [facility] Basic Metabolic Panel w/ Ref rafael to MGon 07-08-2021 Anion gap [Moles/Vol] 10 mmol/L 9 - 17 mmol/L [facility] Calcium [Mass/Vol] 7.3 mg/dL Low 8.6 - 10. 4 mg/dL [facility] Chloride [Moles/Vol] 108 mmol/L High 98 - 10 7 mmol/L [facility] CO2 [Moles/Vol] 20 mmol/L 20 - 31 mmol/L [facility] Creatinine [Mass/Vol] 0.83 mg/dL 0.50 - 0.90 mg/dL [facility] GFR >60 >60 mL/min [facility] GFR Non- >60 >60 mL/min [facility] GFR/1.73 sq M.predicted MDRD (S/P/Bld) [Vol rate/Area] [facility] Glucose [Mass/Vol] 141 mg/dL High 70 - 99 mg/dL [facility] Interpretation and review of laboratory results Abnormal [facility] Potassium [Moles/Vol] 2.9 mmol/L Critically low 3.7 - 5.3 mmol/L [facility] Sodium [Moles/Vol] 138 mmol/L 135 - 144 mmol/L [facility] Urea nitrogen (BldV) [Mass/Vol] 7 mg/dL 6 - 20 mg/dL [facility] C-Reactive Proteinon 022 CRP [Mass/Vol] 131.5 mg/L High 0.0 - 5.0 mg/L [facility] Interpretation and review of laboratory results Abnormal [facility] CBC with Auto Differentialon 07-08-2021 Absolute Eos # 0.31 [facility] Absolute Immature Granulocyte 0.05 [facility] Absolute Lymph # 1.87 [facility] Absolute Antelope # 0.37 [facility] RS [facility] Basophils (Bld) [#/Vol] 10*3/uL [facility] Basophils/100 WBC (Bld) 0 % 0 - 2 % [facility] Eosinophils/100 WBC (Bld) 3 % 1 - 4 % [facility] Hematocrit (Bld) [Volume fraction] 21.5 % Low 36.3 - 47.1 % [facility] Hemoglobin.gastrointest inal spec 1 Ql (Stl) 6.9 g/dL Critically low 11.9 - 15.1 g/dL [facility] Immature granulocytes/100 WBC (Bld) 0 % 0 [facility] Interpretation and review of laboratory results Abnormal [facility] Lymphocytes/100 WBC (Bld) 17 % Low 24 - 43 % [facility] MCH (RBC) [Entitic mass] 27.5 pg 25.2 - 33.5 pg [facility] MCHC (RBC) [Mass/Vol] 32.1 g/dL 28.4 - 34.8 g/dL [facility] MCV (RBC) [Entitic vol] 85.7 fL 82.6 - 102.9 fL [facility] Monocytes/100 WBC (Bld) 3 % 3 - 12 % [facility] NRBC Automated 0.0 0.0 per 100 WBC [facility] Platelet distribution width (Bld) [Ratio] 18.6 % High 11.8 - 14.4 % [facility] Platelet mean volume (Bld) [Entitic vol] 8.9 fL 8.1 - 13.5 fL [facility] Platelets (Bld) [#/Vol] 328 10*3/uL [facility] RBC (Bld) [#/Vol] 2.51 10*6/uL Low 3.95 - 5.1 1 m/uL [facility] RBC (Bld) [#/Vol] ANISOCYTOSIS PRESENT [facility] Seg Neutrophils 77 % High 36 - 65 % [facility] Segs Absolute 8.74 High [facility] WBC (Bld) [#/Vol] 11.4 10*3/uL High [facility] Culture, Urineon 07-08-2021 Bacteria identified Cx Nom (U) NO GROWTH [facility] Specimen Description .INDWELLING CATH URINE [facility] Bacteria identified Cx Nom (U) NO GROWTH [facility] Specimen Description .INDWELLING CATH URINE [facility] Hemoglobin and Hematocriton 07-08-2021 Hematocrit (Bld) [Volume fraction] 25.5 % Low 36.3 - 47.1 % [facility] Hemoglobin.gastrointest inal spec 1 Ql (Stl) 8.1 g/dL Low 11.9 - 15.1 g/dL [facility] Interpretation and review of laboratory results Abnormal [facility] MRI BRAIN W WO CONTRASTon MHPN RIS CONSOLIDATED PN RIS CONSOLIDATED [facility] Work Phone: MRI BRAIN W WO CONTRASTOrder ed By: Mai Villarreal on 07-08-2021 [facility] Work Phone: Magnesiumon 07-08-2021 Magnesium [Mass/Vol] 1.7 mg/dL 1.6 - 2 .6 mg/dL [facility] POC Glucose Fingerstickon Glucose [Mass/Vol] 139 mg/dL High 65 - 105 mg/dL [facility] Interpretation and review of laboratory results Abnormal [facility] Glucose [Mass/Vol] 140 mg/dL High 65 - 105 mg/dL [facility] Interpretation and review of laboratory results Abnormal [facility] Glucose [Mass/Vol] 192 mg/dL High 65 - 105 mg/dL [facility] Interpretation and review of laboratory results Abnormal [facility] Basic Metabolic Panel w/ Ref rafael to MGon 07-07-2021 Anion gap [Moles/Vol] 12 mmol/L 9 - 17 mmol/L [facility] Calcium [Mass/Vol] 7.8 mg/dL Low 8.6 - 10. 4 mg/dL [facility] Chloride [Moles/Vol] 106 mmol/L 98 - 10 7 mmol/L [facility] CO2 [Moles/Vol] 22 mmol/L 20 - 31 mmol/L [facility] Creatinine [Mass/Vol] 0.83 mg/dL 0.50 - 0.90 mg/dL [facility] GFR >60 >60 mL/min [facility] GFR Non- >60 >60 mL/min [facility] GFR/1.73 sq M.predicted MDRD (S/P/Bld) [Vol rate/Area] [facility] Glucose [Mass/Vol] 205 mg/dL High 70 - 99 mg/dL [facility] Potassium [Moles/Vol] 3.9 mmol/L 3.7 - 5.3 mmol/L [facility] Sodium [Moles/Vol] 140 mmol/L 135 - 144 mmol/L [facility] Urea nitrogen (BldV) [Mass/Vol] 8 mg/dL 6 - 20 mg/dL [facility] C-Reactive Proteinon 022 CRP [Mass/Vol] 141.9 mg/L High 0.0 - 5.0 mg/L [facility] CBC with Auto Differentialon 07-07-2021 Absolute Eos # <0.03 [place] [facility] Absolute Immature Granulocyte 0.06 [facility] Absolute Lymph # 0.72 Low [facility] Absolute Antelope # 0.51 [facility] RS [facility] Basophils (Bld) [#/Vol] 10*3/uL [facility] Basophils/100 WBC (Bld) 0 % 0 - 2 % [facility] Eosinophils/100 WBC (Bld) 0 % Low 1 - 4 % [facility] Hematocrit (Bld) [Volume fraction] 27.9 % Low 36.3 - 47.1 % [facility] Hemoglobin.gastrointest inal spec 1 Ql (Stl) 9.2 g/dL Low 11.9 - 15.1 g/dL [facility] Immature granulocytes/100 WBC (Bld) 1 % High 0 [facility] Interpretation and review of laboratory results Abnormal [facility] Lymphocytes/100 WBC (Bld) 7 % Low 24 - 43 % [facility] MCH (RBC) [Entitic mass] 27.5 pg 25.2 - 33.5 pg [facility] MCHC (RBC) [Mass/Vol] 33.0 g/dL 28.4 - 34.8 g/dL [facility] MCV (RBC) [Entitic vol] 83.5 fL 82.6 - 102.9 fL [facility] Monocytes/100 WBC (Bld) 5 % 3 - 12 % [facility] NRBC Automated 0.0 0.0 per 100 WBC [facility] Platelet distribution width (Bld) [Ratio] 17.2 % High 11.8 - 14.4 % [facility] Platelet mean volume (Bld) [Entitic vol] 9.1 fL 8.1 - 13.5 fL [facility] Platelets (Bld) [#/Vol] 372 10*3/uL [facility] RBC (Bld) [#/Vol] 3.34 10*6/uL Low 3.95 - 5.1 1 m/uL [facility] RBC (Bld) [#/Vol] ANISOCYTOSIS PRESENT [facility] Seg Neutrophils 88 % High 36 - 65 % [facility] Segs Absolute 9.77 High [facility] WBC (Bld) [#/Vol] 11.1 10*3/uL [facility] Microscopic Urinalysison Bacteria, UA MANY Abnormal None [facility] Casts UA 10 TO 20 HYALINE Reference range defined for non-centrifuged specimen. [facility] Epithelial Cells UA 10 TO 20 [facility] Interpretation and review of laboratory results Abnormal [facility] RBC, UA 20 TO 50 [facility] WBC, UA 10 TO 20 [facility] No Panel Informationon 07-07 Interpretation and review of laboratory results Abnormal [facility] POC Glucose Fingerstickon Glucose [Mass/Vol] 126 mg/dL High 65 - 105 mg/dL [facility] Interpretation and review of laboratory results Abnormal [facility] Glucose [Mass/Vol] 163 mg/dL High 65 - 105 mg/dL [facility] Interpretation and review of laboratory results Abnormal [facility] Glucose [Mass/Vol] 132 mg/dL High 65 - 105 mg/dL [facility] Interpretation and review of laboratory results Abnormal [facility] TYPE AND SCREENon 07-07-2021 ABO/Rh Positive [facility] Arm Band Number BE [id number] [facility] Blood Bank Blood Product Expiration Date [facility] Blood Bank ISBT Product Blood Type 6200 [facility] Blood Bank Unit Type and Rh Positive [facility] Blood product type Nom (BPU) Leukocyte Reduced Red Cell [facility] Blood product unit ID (Dose) [#] [id number] [facility] Crossmatch Result COMPATIBLE [facility] Dispense Status TRANSFUSED [facility] Expiration Date 07/09/2021,2359 [facility] Product Code Blood Bank [id number] [facility] Transfusion Status OK TO TRANSFUSE [facility] Unit Divison 0 [facility] Unit Issue Date/Time [facility] N [facility] Urinalysis with Reflex to Cu ltureon 07-07-2021 Bilirubin Urine Negative NEGATIVE [facility] Color, UA Yellow Yellow [facility] Glucose, Ur 1+ Abnormal NEGATIVE [facility] Interpretation and review of laboratory results Abnormal [facility] Ketones Ql (U) TRACE Abnormal NEGATIVE [facility] Leukocyte esterase Test strip Ql (U) Negative NEGATIVE [facility] Nitrite, Urine Negative NEGATIVE [facility] pH, UA 5.5 [facility] Protein, UA Negative NEGATIVE [facility] Specific [place], UA 1.024 [facility] Turbidity UA Clear Clear [facility] Urine Hgb MODERATE Abnormal NEGATIVE [facility] Urobilinogen, Urine Normal Normal [facility] Basic Metabolic Panel w/ Ref rafael to MGon 07-06-2021 Anion gap [Moles/Vol] 8 mmol/L Low 9 - 17 mmol/L [facility] Calcium [Mass/Vol] 8.1 mg/dL Low 8.6 - 10. 4 mg/dL [facility] Chloride [Moles/Vol] 102 mmol/L 98 - 10 7 mmol/L [facility] CO2 [Moles/Vol] 23 mmol/L 20 - 31 mmol/L [facility] Creatinine [Mass/Vol] 0.9 mg/dL 0.50 - 0.90 mg/dL [facility] GFR >60 >60 mL/min [facility] GFR Non- >60 >60 mL/min [facility] GFR/1.73 sq M.predicted MDRD (S/P/Bld) [Vol rate/Area] [facility] Glucose [Mass/Vol] 138 mg/dL High 70 - 99 mg/dL [facility] Interpretation and review of laboratory results Abnormal [facility] Potassium [Moles/Vol] 3.2 mmol/L Low 3.7 - 5.3 mmol/L [facility] Sodium [Moles/Vol] 133 mmol/L Low 135 - 144 mmol/L [facility] Urea nitrogen (BldV) [Mass/Vol] 7 mg/dL 6 - 20 mg/dL [facility] Blood Gas, Arterialon 2021 Adarsh Test INFORMATION NOT PROVIDED [facility] Carboxyhemoglobin 1.1 % 0 - 5 % [facility] FIO2 100% [facility] HCO3 (Bld) [Moles/Vol] 22.7 mmol/L 22 - 27 mmol/L [facility] Oxygen saturation in Blood 99.6 % 94 - 100 % [facility] pCO2, Arterial 27.4 Low [facility] pH, Arterial 7.529 High [facility] pO2, Arterial 277.0 High [facility] Positive Base Excess, Art 0.5 mmol/L 0.0 - 2.0 mmol/L [facility] Pt Temp 37.0 [facility] C-Reactive Proteinon 022 CRP [Mass/Vol] 183.8 mg/L High 0.0 - 5.0 mg/L [facility] Interpretation and review of laboratory results Abnormal [facility] CBC with Auto Differentialon 07-06-2021 Absolute Eos # 0.25 [facility] Absolute Immature Granulocyte 0.04 [facility] Absolute Lymph # 1.52 [facility] Absolute Antelope # 0.43 [facility] Basophils (Bld) [#/Vol] 10*3/uL [facility] Basophils/100 WBC (Bld) 0 % 0 - 2 % [facility] Eosinophils/100 WBC (Bld) 3 % 1 - 4 % [facility] Hematocrit (Bld) [Volume fraction] 27.5 % Low 36.3 - 47.1 % [facility] Hemoglobin.gastrointest inal spec 1 Ql (Stl) 8.5 g/dL Low 11.9 - 15.1 g/dL [facility] Immature granulocytes/100 WBC (Bld) 1 % High 0 [facility] Interpretation and review of laboratory results Abnormal [facility] Lymphocytes/100 WBC (Bld) 20 % Low 24 - 43 % [facility] MCH (RBC) [Entitic mass] 26.0 pg 25.2 - 33.5 pg [facility] MCHC (RBC) [Mass/Vol] 30.9 g/dL 28.4 - 34.8 g/dL [facility] MCV (RBC) [Entitic vol] 84.1 fL 82.6 - 102.9 fL [facility] Monocytes/100 WBC (Bld) 6 % 3 - 12 % [facility] NRBC Automated 0.0 0.0 per 100 WBC [facility] Platelet distribution width (Bld) [Ratio] 18.2 % High 11.8 - 14.4 % [facility] Platelet mean volume (Bld) [Entitic vol] 9.4 fL 8.1 - 13.5 fL [facility] Platelets (Bld) [#/Vol] 378 10*3/uL [facility] RBC (Bld) [#/Vol] 3.27 10*6/uL Low 3.95 - 5.1 1 m/uL [facility] RBC (Bld) [#/Vol] ANISOCYTOSIS PRESENT [facility] Seg Neutrophils 70 % High 36 - 65 % [facility] Segs Absolute 5.41 [facility] WBC (Bld) [#/Vol] 7.7 10*3/uL [facility] Calcium, Ionizedon 2 Calcium [Moles/Vol] 1.14 mmol/L 1.13 - 1 .33 mmol/L [facility] Calcium [Moles/Vol] 1.13 mmol/L 1.13 - 1 .33 mmol/L [facility] Chloride, Whole Bloodon 06-18-2021 Chloride [Moles/Vol] 109 mmol/L 98 - 11 0 mmol/L [facility] Culture, Blood 1on 2 Bacteria identified Cx Nom (Unsp spec) Positive Abnormal [facility] Bacteria identified Cx Nom (Unsp spec) DIRECT GRAM STAIN FROM BOTTLE: GRAM POSITIVE COCCI IN CLUSTERS [facility] Bacteria identified Cx Nom (Unsp spec) STAPHYLOCOCCUS AUREUS For susceptibility, refer to previous culture. Abnormal [facility] Bacteria identified Cx Nom (Unsp spec) (NOTE) Direct Gram Stain from bottle result called to and read back by: RICH Miranda 07/05/21 0115 [facility] Interpretation and review of laboratory results Abnormal [facility] Special Requests R HAND 10ML [facility] Specimen Description .BLOOD [facility] Bacteria identified Cx Nom (Unsp spec) Positive Abnormal [facility] Bacteria identified Cx Nom (Unsp spec) DIRECT GRAM STAIN FROM BOTTLE: GRAM POSITIVE COCCI IN CLUSTERS [facility] Bacteria identified Cx Nom (Unsp spec) STAPHYLOCOCCUS AUREUS This isolate is methicillin susceptible. Abnormal [facility] Bacteria identified Cx Nom (Unsp spec) (NOTE) Direct Gram Stain from bottle result called to and read back by: RICH Miranda RN AT 0020 ON 07/05/21 [facility] Interpretation and review of laboratory results Abnormal [facility] Special Requests L HAND 20ML [facility] Specimen Description .BLOOD [facility] FLUORO FOR SURGICAL PROCEDUR ESon 07-06-2021 PN RIS CONSOLIDATED Glucose, Whole Bloodon 07-06 Glucose [Mass/Vol] 131 mg/dL High 65 - 105 mg/dL [facility] Magnesiumon 07-06-2021 Magnesium [Mass/Vol] 2.3 mg/dL 1.6 - 2 .6 mg/dL [facility] No Panel Informationon 07-06 [facility] Interpretation and review of laboratory results Abnormal [facility] OPEN HEART PANELon Adarsh Test INFORMATION NOT PROVIDED [facility] Carboxyhemoglobin 0.8 % 0 - 5 % [facility] Chloride [Moles/Vol] 108 mmol/L 98 - 11 0 mmol/L [facility] FIO2 56% [facility] Glucose [Mass/Vol] 207 mg/dL High 65 - 105 mg/dL [facility] HCO3 (Bld) [Moles/Vol] 21.4 mmol/L Low 22 - 27 mmol/L [facility] Hematocrit (Bld) [Volume fraction] 30.6 % Low 36.3 - 47.1 % [facility] [facility] Hemoglobin.gastrointest inal spec 1 Ql (Stl) 9.9 Low [facility] Interpretation and review of laboratory results Abnormal [facility] Negative Base Excess, Art 2.3 mmol/L High 0.0 - 2.0 mmol/L [facility] Oxygen saturation in Blood 99.4 % 94 - 100 % [facility] pCO2, Arterial 34.8 [facility] pH, Arterial 7.406 [facility] pO2, Arterial 279.0 High [facility] Potassium [Moles/Vol] 3.7 mmol/L 3.6 - 5.0 mmol/L [facility] Pt Temp 35.9 [facility] Sodium [Moles/Vol] 140 mmol/L 136 - 145 mmol/L [facility] Open Heart H&Hon 07-06-2021 Hematocrit (Bld) [Volume fraction] 21.0 % Low 36.3 - 47.1 % [facility] Hemoglobin.gastrointest inal spec 1 Ql (Stl) 6.7 Critically low [facility] POC Glucose Fingerstickon Glucose [Mass/Vol] 192 mg/dL High 65 - 105 mg/dL [facility] Interpretation and review of laboratory results Abnormal [facility] Glucose [Mass/Vol] 136 mg/dL High 65 - 105 mg/dL [facility] Interpretation and review of laboratory results Abnormal [facility] Glucose [Mass/Vol] 132 mg/dL High 65 - 105 mg/dL [facility] Interpretation and review of laboratory results Abnormal [facility] Potassium, Whole Bloodon Potassium [Moles/Vol] 3.6 mmol/L 3.6 - 5.0 mmol/L [facility] Sodium, Whole Bloodon 2021 Sodium [Moles/Vol] 140 mmol/L 136 - 145 mmol/L [facility] Basic Metabolic Panel w/ Ref rafael to MGon 07-05-2021 Anion gap [Moles/Vol] 10 mmol/L 9 - 17 mmol/L [facility] Calcium [Mass/Vol] 8.4 mg/dL Low 8.6 - 10. 4 mg/dL [facility] Chloride [Moles/Vol] 101 mmol/L 98 - 10 7 mmol/L [facility] CO2 [Moles/Vol] 27 mmol/L 20 - 31 mmol/L [facility] Creatinine [Mass/Vol] 0.79 mg/dL 0.50 - 0.90 mg/dL [facility] GFR >60 >60 mL/min [facility] GFR Non- >60 >60 mL/min [facility] GFR/1.73 sq M.predicted MDRD (S/P/Bld) [Vol rate/Area] [facility] Glucose [Mass/Vol] 136 mg/dL High 70 - 99 mg/dL [facility] Interpretation and review of laboratory results Abnormal [facility] Potassium [Moles/Vol] 3.1 mmol/L Low 3.7 - 5.3 mmol/L [facility] Sodium [Moles/Vol] 138 mmol/L 135 - 144 mmol/L [facility] Urea nitrogen (BldV) [Mass/Vol] 7 mg/dL 6 - 20 mg/dL [facility] C-Reactive Proteinon 022 CRP [Mass/Vol] 186.3 mg/L High 0.0 - 5.0 mg/L [facility] Interpretation and review of laboratory results Abnormal [facility] CBC with Auto Differentialon 07-05-2021 Absolute Eos # 0.15 [facility] Absolute Immature Granulocyte 0.06 [facility] Absolute Lymph # 2.56 [facility] URS [facility] Absolute Antelope # 0.43 [facility] Basophils (Bld) [#/Vol] 10*3/uL [facility] Basophils/100 WBC (Bld) 0 % 0 - 2 % [facility] Eosinophils/100 WBC (Bld) 2 % 1 - 4 % [facility] Hematocrit (Bld) [Volume fraction] 24.6 % Low 36.3 - 47.1 % [facility] Hemoglobin.gastrointest inal spec 1 Ql (Stl) 7.9 g/dL Low 11.9 - 15.1 g/dL [facility] Immature granulocytes/100 WBC (Bld) 1 % High 0 [facility] Interpretation and review of laboratory results Abnormal [facility] Lymphocytes/100 WBC (Bld) 26 % 24 - 43 % [facility] MCH (RBC) [Entitic mass] 26.5 pg 25.2 - 33.5 pg [facility] MCHC (RBC) [Mass/Vol] 32.1 g/dL 28.4 - 34.8 g/dL [facility] MCV (RBC) [Entitic vol] 82.6 fL 82.6 - 102.9 fL [facility] Monocytes/100 WBC (Bld) 4 % 3 - 12 % [facility] NRBC Automated 0.0 0.0 per 100 WBC [facility] Platelet distribution width (Bld) [Ratio] 17.5 % High 11.8 - 14.4 % [facility] Platelet mean volume (Bld) [Entitic vol] 9.7 fL 8.1 - 13.5 fL [facility] Platelets (Bld) [#/Vol] 341 10*3/uL [facility] RBC (Bld) [#/Vol] 2.98 10*6/uL Low 3.95 - 5.1 1 m/uL [facility] RBC (Bld) [#/Vol] ANISOCYTOSIS PRESENT [facility] Seg Neutrophils 68 % High 36 - 65 % [facility] Segs Absolute 6.79 [facility] WBC (Bld) [#/Vol] 10.0 10*3/uL [facility] Culture, Blood 1 2 Bacteria identified Cx Nom (Unsp spec) Positive Abnormal [facility] Bacteria identified Cx Nom (Unsp spec) DIRECT GRAM STAIN FROM BOTTLE: GRAM POSITIVE COCCI IN CLUSTERS [facility] Bacteria identified Cx Nom (Unsp spec) STAPHYLOCOCCUS AUREUS This isolate is methicillin susceptible. Abnormal [facility] Bacteria identified Cx Nom (Unsp spec) (NOTE) Direct Gram Stain from bottle result called to and read back by: VIRGIE Parker AT [id number] ON 07/04/21 [facility] Interpretation and review of laboratory results Abnormal [facility] Special Requests LT HAND 2ML [facility] Specimen Description .BLOOD [facility] SE[facility]HIC.TV [facility] [employer] [place] MODIFIED BARIUM SWALLOW W VIDEOon 07-05-2021 [facility] RIS CONSOLIDATED [facility] RIS CONSOLIDATED [employer] Work Phone: [employer] Work Phone: Radiology Study observation (narrative) ARASELI WOLF [employer] Work Phone: MRI BRAIN W WO CONTRASTon Radiology Study observation (narrative) ARASELI WOLF [employer] Work Phone: MRI CERVICAL SPINE W WO CONT RASTon 07-05-2021 [facility] RIS CONSOLIDATED [facility] RIS CONSOLIDATED [employer] Work Phone: MRI CERVICAL SPINE W WO CONT RASTOrdered By: Fredi Ramirez on 07-05-2021 [employer] Work Phone: Magnesiumon 07-05-2021 Magnesium [Mass/Vol] 1.9 mg/dL 1.6 - 2 .6 mg/dL [facility]TV [facility] Myelin Basic Protein, CSFon 07-05-2021 Myelin Basic Protein, CSF 3.3 ng/mL 0.00 - 5.50 ng/mL [facility] HOSPITALThe Key RevolutionCAROMONT REGIONAL MEDICAL CENTERCHIC.TV POC Glucose Fingerstickon Glucose [Mass/Vol] 102 mg/dL 65 - 105 mg/dL [facility] HOSPITALThe Key RevolutionPARRISH MED[facility] Feed[employer]fm [employer] Glucose [Mass/Vol] 185 mg/dL High 65 - 105 mg/dL [facility] HOSPITALRockford Precision Manufacturing [facility] Interpretation and review of laboratory results Abnormal [facility] HOSPITALSaehwa International Machinery [facility]ITALThe Key RevolutionKETTERING HEALTH [facility]IOR[facility] Glucose [Mass/Vol] 134 mg/dL High 65 - 105 mg/dL [facility] HOSPITALRockford Precision [employer] [facility] Interpretation and review of laboratory results Abnormal [facility] HOS[facility]ITALThe Key RevolutionCAROMONT REGIONAL MEDICAL CENTERThe Key RevolutionKETTERING HEALTH [facility]HAVIOR[facility] Glucose [Mass/Vol] 147 mg/dL High 65 - 105 mg/dL [facility] HOSPITALThe Key RevolutionKETTERING HEALTH [facility]IOR[facility] Interpretation and review of laboratory results Abnormal [facility] HE[facility] HOSPITALThe Key Revolution [employer] [facility] HOSPITALCHIC.TV Potassiumon 07-05-2021 Potassium [Moles/Vol] 3.8 mmol/L 3.7 - 5.3 mmol/L [facility] Basic Metabolic Panel w/ Ref rafael to MGon 07-04-2021 Anion gap [Moles/Vol] 10 mmol/L 9 - 17 mmol/L [facility] Calcium [Mass/Vol] 8.0 mg/dL Low 8.6 - 10. 4 mg/dL [facility] Chloride [Moles/Vol] 102 mmol/L 98 - 10 7 mmol/L [facility] CO2 [Moles/Vol] 26 mmol/L 20 - 31 mmol/L [facility] Creatinine [Mass/Vol] 0.72 mg/dL 0.50 - 0.90 mg/dL [facility] GFR >60 >60 mL/min [facility] GFR Non- >60 >60 mL/min [facility] GFR/1.73 sq M.predicted MDRD (S/P/Bld) [Vol rate/Area] [facility] Glucose [Mass/Vol] 122 mg/dL High 70 - 99 mg/dL [facility] Interpretation and review of laboratory results Abnormal [facility] Potassium [Moles/Vol] 3.5 mmol/L Low 3.7 - 5.3 mmol/L [facility] Sodium [Moles/Vol] 138 mmol/L 135 - 144 mmol/L [facility] Urea nitrogen (BldV) [Mass/Vol] 8 mg/dL 6 - 20 mg/dL [facility] C-Reactive Proteinon 022 CRP [Mass/Vol] 191.8 mg/L High 0.0 - 5.0 mg/L [facility] Interpretation and review of laboratory results Abnormal [facility] CBC with Auto Differentialon 07-04-2021 Absolute Eos # 0.18 [facility] S [facility] Absolute Immature Granulocyte 0.05 [facility] Absolute Lymph # 2.24 [facility] HOS[facility]ITALO URS [facility] Absolute Antelope # 0.55 [facility] Basophils (Bld) [#/Vol] 10*3/uL [facility] Basophils/100 WBC (Bld) 0 % 0 - 2 % [facility] Eosinophils/100 WBC (Bld) 2 % 1 - 4 % [facility] Hematocrit (Bld) [Volume fraction] 22.8 % Low 36.3 - 47.1 % [facility] Hemoglobin.gastrointest inal spec 1 Ql (Stl) 7.4 g/dL Low 11.9 - 15.1 g/dL [facility] Immature granulocytes/100 WBC (Bld) 1 % High 0 [facility] Interpretation and review of laboratory results Abnormal [facility] Lymphocytes/100 WBC (Bld) 22 % Low 24 - 43 % [facility] MCH (RBC) [Entitic mass] 26.5 pg 25.2 - 33.5 pg [facility] MCHC (RBC) [Mass/Vol] 32.5 g/dL 28.4 - 34.8 g/dL [facility] MCV (RBC) [Entitic vol] 81.7 fL Low 82.6 - 102.9 fL [facility] Monocytes/100 WBC (Bld) 5 % 3 - 12 % [facility] NRBC Automated 0.0 0.0 per 100 WBC [facility] Platelet distribution width (Bld) [Ratio] 16.9 % High 11.8 - 14.4 % [facility] Platelet mean volume (Bld) [Entitic vol] 9.0 fL 8.1 - 13.5 fL [facility] Platelets (Bld) [#/Vol] 231 10*3/uL [facility] RBC (Bld) [#/Vol] 2.79 10*6/uL Low 3.95 - 5.1 1 m/uL [facility] RBC (Bld) [#/Vol] ANISOCYTOSIS PRESENT [facility] Seg Neutrophils 71 % High 36 - 65 % [facility] Segs Absolute 7.32 [facility] WBC (Bld) [#/Vol] 10.4 10*3/uL [facility] Culture, Blood 1on 05-18-202 2 Bacteria identified Cx Nom (Unsp spec) Positive Abnormal [facility] Bacteria identified Cx Nom (Unsp spec) DIRECT GRAM STAIN FROM BOTTLE: GRAM POSITIVE COCCI IN CL[employer] [facility] Feed.fmKETTERING HEALTH BE[facility]AVIOR[facility] Bacteria identified Cx Nom (Unsp spec) Staphylococcus aureus Detected: mecA/C and MREJ Not Detected Methodology- Polymerase Chain Reaction (PCR) [facility] Bacteria identified Cx Nom (Unsp spec) STAPHYLOCOCCUS AUREUS Abnormal [facility] Bacteria identified Cx Nom (Unsp spec) (NOTE) Direct Gram Stain from bottle and Polymerase Chain Reaction (PCR) results called to and read back by: VIRGIE Joaquin on 07/03/21 at 7:45 [facility] Interpretation and review of laboratory results Abnormal [facility] Special Requests L HAND 1 ML [facility] Specimen Description .BLOOD [facility] MISCELLANEOUS TESTINGon 06-17 Send Out Report PERFORMED AT [employer] [facility] Test Name GILA ENC2 CSF [facility] MRI CERVICAL SPINE W WO [facility]2021 Radiology Study observation (narrative) [facility] [employer] Work Phone: Magnesiumon 07-04-2021 Magnesium [Mass/Vol] 1.8 mg/dL 1.6 - 2 .6 mg/dL [facility] POC Glucose Fingerstickon Glucose [Mass/Vol] 113 mg/dL High 65 - 105 mg/dL [facility] Interpretation and review of laboratory results Abnormal [facility] Glucose [Mass/Vol] 188 mg/dL High 65 - 105 mg/dL [facility] Interpretation and review of laboratory results Abnormal [facility] Glucose [Mass/Vol] 118 mg/dL High 65 - 105 mg/dL [facility] Interpretation and review of laboratory results Abnormal [facility] Glucose [Mass/Vol] 135 mg/dL High 65 - 105 mg/dL [facility] Interpretation and review of laboratory results Abnormal [facility] Basic Metabolic Panel w/ Ref rafael to MGon 07-03-2021 Anion gap [Moles/Vol] 11 mmol/L 9 - 17 mmol/L [facility] Calcium [Mass/Vol] 8.3 mg/dL Low 8.6 - 10. 4 mg/dL [facility] Chloride [Moles/Vol] 98 mmol/L 98 - 10 7 mmol/L [facility] CO2 [Moles/Vol] 25 mmol/L 20 - 31 mmol/L [facility] Creatinine [Mass/Vol] 0.81 mg/dL 0.50 - 0.90 mg/dL [facility] GFR >60 >60 mL/min [facility] GFR Non- >60 >60 mL/min [facility] GFR/1.73 sq M.predicted MDRD (S/P/Bld) [Vol rate/Area] [facility] Glucose [Mass/Vol] 108 mg/dL High 70 - 99 mg/dL [facility] Interpretation and review of laboratory results Abnormal [facility] Potassium [Moles/Vol] 2.9 mmol/L Critically low 3.7 - 5.3 mmol/L [facility] Sodium [Moles/Vol] 134 mmol/L Low 135 - 144 mmol/L [facility] Urea nitrogen (BldV) [Mass/Vol] 7 mg/dL 6 - 20 mg/dL [facility] C-Reactive Proteinon 022 CRP [Mass/Vol] 166.3 mg/L High 0.0 - 5.0 mg/L [facility] Interpretation and review of laboratory results Abnormal [facility] CBC with Auto Differentialon 07-03-2021 Absolute Eos # 0.19 [facility] S [facility] Absolute Immature Granulocyte 0.09 [facility] Absolute Lymph # 2.40 [facility] URS [facility] Absolute Antelope # 0.64 [facility] Basophils (Bld) [#/Vol] 10*3/uL [facility] Basophils/100 WBC (Bld) 0 % 0 - 2 % [facility] Eosinophils/100 WBC (Bld) 1 % 1 - 4 % [facility] Hematocrit (Bld) [Volume fraction] 26.1 % Low 36.3 - 47.1 % [facility] Hemoglobin.gastrointest inal spec 1 Ql (Stl) 8.4 g/dL Low 11.9 - 15.1 g/dL [facility] Immature granulocytes/100 WBC (Bld) 1 % High 0 [facility] Interpretation and review of laboratory results Abnormal [facility] Lymphocytes/100 WBC (Bld) 18 % Low 24 - 43 % [facility] MCH (RBC) [Entitic mass] 26.1 pg 25.2 - 33.5 pg [facility] MCHC (RBC) [Mass/Vol] 32.2 g/dL 28.4 - 34.8 g/dL [facility] MCV (RBC) [Entitic vol] 81.1 fL Low 82.6 - 102.9 fL [facility] Monocytes/100 WBC (Bld) 5 % 3 - 12 % [facility] NRBC Automated 0.0 0.0 per 100 WBC [facility] Platelet distribution width (Bld) [Ratio] 16.5 % High 11.8 - 14.4 % [facility] Platelet mean volume (Bld) [Entitic vol] 8.8 fL 8.1 - 13.5 fL [facility] Platelets (Bld) [#/Vol] 261 10*3/uL [facility] RBC (Bld) [#/Vol] 3.22 10*6/uL Low 3.95 - 5.1 1 m/uL [facility] RBC (Bld) [#/Vol] ANISOCYTOSIS PRESENT [facility] Seg Neutrophils 75 % High 36 - 65 % [facility] Segs Absolute 10.31 High [facility] WBC (Bld) [#/Vol] 13.6 10*3/uL High [facility] Culture, Blood 1 2 Bacteria identified Cx Nom (Unsp spec) Positive Abnormal [facility] Bacteria identified Cx Nom (Unsp spec) DIRECT GRAM STAIN FROM BOTTLE: GRAM POSITIVE COCCI IN CLUSTERS [facility] Bacteria identified Cx Nom (Unsp spec) STAPHYLOCOCCUS AUREUS This isolate is methicillin susceptible. Abnormal [facility] Bacteria identified Cx Nom (Unsp spec) (NOTE) Direct Gram Stain from bottle result called to and read back by: VIRGIE Noland at 2200 on 07.01.2021 [facility] Interpretation and review of laboratory results Abnormal [facility] Specimen Description .BLOOD [facility] [employer] [facility] [employer] ECHO Complete 2D W Doppler W Coloron 07-03-2021 [facility] STV CPACS [facility] [employer] Work Phone: ECHO Complete 2D W Doppler W ColorOrdered By: Sintia Salazar on 07-03-2021 [facility] HOSPITALRockford Precision Manufacturing [facility] [employer] Work Phone: [place] MODIFIED BARIUM SWALLOW W VIDEOon 07-03-2021 [facility] RIS CONSOLIDATED PN RIS CONSOLIDATED [facility] [employer] Work Phone: Radiology Study observation (narrative) [employer] Work Phone: [place] MODIFIED BARIUM SWALLOW W VIDEOOrdered By: Rufus Burnette on 07-03-2021 [facility]ITALCHIC.TV Work Phone: Hemoglobin and Hematocriton 07-03-2021 Hematocrit (Bld) [Volume fraction] 24.2 % Low 36.3 - 47.1 % [facility] [employer] Hemoglobin.gastrointest inal spec 1 Ql (Stl) 7.8 g/dL Low 11.9 - 15.1 g/dL [facility] [employer] Interpretation and review of laboratory results Abnormal [facility] [employer] [facility] Herpes simplex virus PCRon 0 07-03-2021 HSV, PCR Not detected [facility] [employer] [facility] [employer] Magnesiumon 07-03-2021 Magnesium [Mass/Vol] 2.0 mg/dL 1.6 - 2 .6 mg/dL [facility] [employer] [facility] [employer] NM BONE SCAN 3 PHASEon 07-03 [facility] RIS CONSOLIDATED [facility] RIS CONSOLIDATED [facility] HOSPITALRockford Precision Manufacturing [facility] [employer] Work Phone: Radiology Study observation (narrative) [employer] Work Phone: NM BONE SCAN 3 PHASEOrdered By: Mark Anthony Duke on 07-03-2021 [employer] Work Phone: POC Glucose Fingerstickon Glucose [Mass/Vol] 146 mg/dL High 65 - 105 mg/dL [facility]PITALCHIC.TV Interpretation and review of laboratory results Abnormal [facility] HOSPITALSaehwa International Machinery [facility]ITALCH[facility]TV Glucose [Mass/Vol] 108 mg/dL High 65 - 105 mg/dL [facility]ITALCHIC.TV Interpretation and review of laboratory results Abnormal [facility] Feed[facility]fm[facility] Feed.fmKETTERING [facility]IOR[facility] Glucose [Mass/Vol] 168 mg/dL High 65 - 105 mg/dL [facility] HOS[facility]ITALCHIC.TV Interpretation and review of laboratory results Abnormal [facility] Feed[facility] Feed[employer] Glucose [Mass/Vol] 111 mg/dL High 65 - 105 mg/dL [facility] HOS[facility]ITALCHIC.TV Interpretation and review of laboratory results Abnormal [facility]ITALCHIC.TV [facility]CHIC.TV Potassiumon 07-03-2021 Interpretation and review of laboratory results Abnormal [facility]ITALCHIC.TV Potassium [Moles/Vol] 3.4 mmol/L Low 3.7 - 5.3 mmol/L [facility]ITALCHIC.TV [facility]CHIC.TV XR CERVICAL SPINE FLEXION AN D EXTENSIONon 07-03-2021 [facility] RIS CONSOLIDATED [facility] RIS CONSOLIDATED [employer] Work Phone: Radiology Study observation (narrative) [facility] SystemsCRITTENTON [facility] [employer] Work Phone: XR CERVICAL SPINE FLEXION AN D EXTENSIONOrdered By: Chanda Garland on 07-03-2021 [facility] [employer] Work Phone: Basic Metabolic Panel w/ Ref rafael to MGon 07-02-2021 Anion gap [Moles/Vol] 11 mmol/L 9 - 17 mmol/L [employer] [facility]ENTERCHIC.TV Calcium [Mass/Vol] 8.0 mg/dL Low 8.6 - 10. 4 mg/dL [employer] [facility]CHIC.TV Chloride [Moles/Vol] 98 mmol/L 98 - 10 7 mmol/L [employer] [facility]CHIC.TV CO2 [Moles/Vol] 25 mmol/L 20 - 31 mmol/L [facility] Creatinine [Mass/Vol] 0.66 mg/dL 0.50 - 0.90 mg/dL [facility] GFR >60 >60 mL/min [facility] GFR Non- >60 >60 mL/min [facility] GFR/1.73 sq M.predicted MDRD (S/P/Bld) [Vol rate/Area] [facility] Glucose [Mass/Vol] 67 mg/dL Low 70 - 99 mg/dL [facility] Interpretation and review of laboratory results Abnormal [facility] Potassium [Moles/Vol] 2.9 mmol/L Critically low 3.7 - 5.3 mmol/L [facility] Sodium [Moles/Vol] 134 mmol/L Low 135 - 144 mmol/L [facility] Urea nitrogen (BldV) [Mass/Vol] 9 mg/dL 6 - 20 mg/dL [facility] C-Reactive Proteinon 022 CRP [Mass/Vol] 61.4 mg/L High 0.0 - 5.0 mg/L [facility] Interpretation and review of laboratory results Abnormal [facility] CBC with Auto Differentialon 07-02-2021 Absolute Eos # 0.36 [facility] Absolute Immature Granulocyte 0.11 [facility] Absolute Lymph # 3.45 [facility] Absolute Antelope # 0.69 [facility] Basophils (Bld) [#/Vol] 10*3/uL [facility] Basophils/100 WBC (Bld) 0 % 0 - 2 % [facility] Eosinophils/100 WBC (Bld) 2 % 1 - 4 % [facility] Hematocrit (Bld) [Volume fraction] 28.2 % Low 36.3 - 47.1 % [facility] Hemoglobin.gastrointest inal spec 1 Ql (Stl) 9.0 g/dL Low 11.9 - 15.1 g/dL [facility] Immature granulocytes/100 WBC (Bld) 1 % High 0 [facility] Interpretation and review of laboratory results Abnormal [facility] Lymphocytes/100 WBC (Bld) 21 % Low 24 - 43 % [facility] MCH (RBC) [Entitic mass] 25.9 pg 25.2 - 33.5 pg [facility] MCHC (RBC) [Mass/Vol] 31.9 g/dL 28.4 - 34.8 g/dL [facility] MCV (RBC) [Entitic vol] 81.3 fL Low 82.6 - 102.9 fL [facility] Monocytes/100 WBC (Bld) 4 % 3 - 12 % [facility] NRBC Automated 0.0 0.0 per 100 WBC [facility] Platelet distribution width (Bld) [Ratio] 16.3 % High 11.8 - 14.4 % [facility] Platelet mean volume (Bld) [Entitic vol] 8.8 fL 8.1 - 13.5 fL [facility] Platelets (Bld) [#/Vol] 299 10*3/uL [facility] RBC (Bld) [#/Vol] 3.47 10*6/uL Low 3.95 - 5.1 1 m/uL [facility] RBC (Bld) [#/Vol] ANISOCYTOSIS PRESENT [facility] Seg Neutrophils 72 % High 36 - 65 % [facility] Segs Absolute 12.06 High [facility] WBC (Bld) [#/Vol] 16.7 10*3/uL High [facility] Culture, Blood 1 2 Bacteria identified Cx Nom (Unsp spec) Positive Abnormal [facility] Bacteria identified Cx Nom (Unsp spec) DIRECT GRAM STAIN FROM BOTTLE: GRAM POSITIVE COCCI IN CLUSTERS [facility] Bacteria identified Cx Nom (Unsp spec) STAPHYLOCOCCUS AUREUS This isolate is methicillin susceptible. Abnormal [facility] Bacteria identified Cx Nom (Unsp spec) (NOTE) Direct Gram Stain from bottle result called to and read back by: VIRGIE Ferraro AT 2058 ON 06/30/21 [facility] Interpretation and review of laboratory results Abnormal [facility] Special Requests LT HAND 9ML [facility] Specimen Description .BLOOD [facility] Hemoglobin and Hematocriton 07-02-2021 Hematocrit (Bld) [Volume fraction] 24.8 % Low 36.3 - 47.1 % [facility] Hemoglobin.gastrointest inal spec 1 Ql (Stl) 8.1 g/dL Low 11.9 - 15.1 g/dL [facility] Interpretation and review of laboratory results Abnormal [facility] Hematocrit (Bld) [Volume fraction] 29.0 % Low 36.3 - 47.1 % [facility] Hemoglobin.gastrointest inal spec 1 Ql (Stl) 9.1 g/dL Low 11.9 - 15.1 g/dL [facility] Interpretation and review of laboratory results Abnormal [facility] Magnesiumon 07-02-2021 Magnesium [Mass/Vol] 2.3 mg/dL 1.6 - 2 .6 mg/dL [facility] POC Glucose Fingerstickon Glucose [Mass/Vol] 122 mg/dL High 65 - 105 mg/dL [facility] Interpretation and review of laboratory results Abnormal [facility] Glucose [Mass/Vol] 105 mg/dL 65 - 105 mg/dL [facility] Glucose [Mass/Vol] 113 mg/dL High 65 - 105 mg/dL [facility] Interpretation and review of laboratory results Abnormal [facility] Glucose [Mass/Vol] 78 mg/dL 65 - 105 mg/dL [facility] Glucose [Mass/Vol] 111 mg/dL High 65 - 105 mg/dL [facility] Interpretation and review of laboratory results Abnormal [facility] Potassiumon 07-02-2021 Interpretation and review of laboratory results Abnormal [facility] Potassium [Moles/Vol] 3.5 mmol/L Low 3.7 - 5.3 mmol/L [facility] Interpretation and review of laboratory results Abnormal [facility] Potassium [Moles/Vol] 3.5 mmol/L Low 3.7 - 5.3 mmol/L [facility] Basic Metabolic Panel w/ Ref rafael to MGon 07-01-2021 Anion gap [Moles/Vol] 10 mmol/L 9 - 17 mmol/L [facility] Calcium [Mass/Vol] 8.2 mg/dL Low 8.6 - 10. 4 mg/dL [facility] Chloride [Moles/Vol] 102 mmol/L 98 - 10 7 mmol/L [facility] CO2 [Moles/Vol] 25 mmol/L 20 - 31 mmol/L [facility] Creatinine [Mass/Vol] 0.97 mg/dL High 0.50 - 0.90 mg/dL [facility] GFR >60 >60 mL/min [facility] GFR Non- 59 mL/min Low >60 [facility] GFR/1.73 sq M.predicted MDRD (S/P/Bld) [Vol rate/Area] [facility] Glucose [Mass/Vol] 117 mg/dL High 70 - 99 mg/dL [facility] Interpretation and review of laboratory results Abnormal [facility] Potassium [Moles/Vol] 2.2 mmol/L Critically low 3.7 - 5.3 mmol/L [facility] Sodium [Moles/Vol] 137 mmol/L 135 - 144 mmol/L [facility] Urea nitrogen (BldV) [Mass/Vol] 18 mg/dL 6 - 20 mg/dL [facility] C-Reactive Proteinon 022 CRP [Mass/Vol] 38.5 mg/L High 0.0 - 5.0 mg/L [facility] Interpretation and review of laboratory results Abnormal [facility] CBC with Auto Differentialon 07-01-2021 Absolute Eos # 0.00 [facility] Absolute Immature Granulocyte 0.00 [facility] Absolute Lymph # 2.14 [facility] Absolute Antelope # 0.76 [facility] Basophils (Bld) [#/Vol] 0.00 10*3/uL [facility] Basophils/100 WBC (Bld) 0 % 0 - 2 % [facility] Eosinophils/100 WBC (Bld) 0 % Low 1 - 4 % [facility] Hematocrit (Bld) [Volume fraction] 28.4 % Low 36.3 - 47.1 % [facility] Hemoglobin.gastrointest inal spec 1 Ql (Stl) 9.0 g/dL Low 11.9 - 15.1 g/dL [facility] Immature granulocytes/100 WBC (Bld) 0 % 0 [facility] Interpretation and review of laboratory results Abnormal [facility] Lymphocytes/100 WBC (Bld) 17 % Low 24 - 44 % [facility] MCH (RBC) [Entitic mass] 26.2 pg 25.2 - 33.5 pg [facility] MCHC (RBC) [Mass/Vol] 31.7 g/dL 28.4 - 34.8 g/dL [facility] MCV (RBC) [Entitic vol] 82.8 fL 82.6 - 102.9 fL [facility] Monocytes/100 WBC (Bld) 6 % 1 - 7 % [facility] Morphology Malachi (Bld) [Interp] ANISOCYTOSIS PRESENT [facility] NRBC Automated 0.0 0.0 per 100 WBC [facility] Platelet distribution width (Bld) [Ratio] 16.2 % High 11.8 - 14.4 % [facility] Platelet mean volume (Bld) [Entitic vol] 8.8 fL 8.1 - 13.5 fL [facility] Platelets (Bld) [#/Vol] 284 10*3/uL [facility] RBC (Bld) [#/Vol] 3.43 10*6/uL Low 3.95 - 5.1 1 m/uL [facility] Seg Neutrophils 77 % High 36 - 66 % [facility] Segs Absolute 9.70 High [facility] WBC (Bld) [#/Vol] 12.6 10*3/uL High [facility] Culture, CSFon 07-01-2021 Bacteria identified Cx Nom (Unsp spec) NO GROWTH 3 DAYS [facility] Direct Exam NO NEUTROPHILS SEEN [facility] Direct Exam NO ORGANISMS SEEN [facility] Direct Exam Gram stain made from cytocentrifuged specimen. Organisms and cells will be concentrated. [facility] Specimen Description .CSF [facility] Hemoglobin and Hematocriton 07-01-2021 Hematocrit (Bld) [Volume fraction] 27.2 % Low 36.3 - 47.1 % [facility] Hemoglobin.gastrointest inal spec 1 Ql (Stl) 8.8 g/dL Low 11.9 - 15.1 g/dL [facility] Interpretation and review of laboratory results Abnormal [facility] Hematocrit (Bld) [Volume fraction] 26.7 % Low 36.3 - 47.1 % [facility] Hemoglobin.gastrointest inal spec 1 Ql (Stl) 8.6 g/dL Low 11.9 - 15.1 g/dL [facility] Interpretation and review of laboratory results Abnormal [facility] Lyme Disease AB, CSFon 07-01 B burgdorferi Ab,CSF 0.02 <=0.99 [facility]UM [facility] Magnesiumon 07-01-2021 Magnesium [Mass/Vol] 1.9 mg/dL 1.6 - 2 .6 mg/dL [facility] Magnesium [Mass/Vol] 2.0 mg/dL 1.6 - 2 .6 mg/dL [facility] Oligoclonal Bandson 07-02-19 22 CSF Isoelectric Focusing Interpretation See Note [facility] Oligo Bands Negative [facility] Oligoclonal Bands Number Matching [facility] POC Glucose Fingerstickon Glucose [Mass/Vol] 84 mg/dL 65 - 105 mg/dL [facility] Glucose [Mass/Vol] 104 mg/dL 65 - 105 mg/dL [facility] Glucose [Mass/Vol] 65 mg/dL 65 - 105 mg/dL [facility] Glucose [Mass/Vol] 107 mg/dL High 65 - 105 mg/dL [facility] Interpretation and review of laboratory results Abnormal [facility] Glucose [Mass/Vol] 115 mg/dL High 65 - 105 mg/dL [facility] Interpretation and review of laboratory results Abnormal [facility] Potassiumon 07-01-2021 Interpretation and review of laboratory results Abnormal [facility] Potassium [Moles/Vol] 2.5 mmol/L Critically low 3.7 - 5.3 mmol/L [facility] Interpretation and review of laboratory results Abnormal [facility] Potassium [Moles/Vol] 2.4 mmol/L Critically low 3.7 - 5.3 mmol/L [facility] Quantiferon TB Goldon 2021 QuantiFERON Mitogen 1.11 IU/mL [facility] QuantiFERON Nil 0.02 IU/mL [facility] Quantiferon TB Minus NIL Negative Negative [facility] Quantiferon TB1 Minus NIL 0.00 [facility] Quantiferon TB2 Minus NIL 0.00 [facility] West Nile Virus, CSFon 07-01 [place] IGG CSF 0.19 <=1.29 IV [facility] [place] AB IGM CSF 0 <=0.89 IV [facility] Culture, Blood 1on 2 Bacteria identified Cx Nom (Unsp spec) Positive Abnormal [facility] Bacteria identified Cx Nom (Unsp spec) DIRECT GRAM STAIN FROM BOTTLE: GRAM POSITIVE COCCI IN CLUSTERS [facility] Bacteria identified Cx Nom (Unsp spec) Staphylococcus aureus Detected: mecA/C and MREJ Not Detected [facility] Bacteria identified Cx Nom (Unsp spec) STAPHYLOCOCCUS AUREUS This isolate is methicillin susceptible. Abnormal [facility] Bacteria identified Cx Nom (Unsp spec) (NOTE) Direct Gram Stain from bottle and Polymerase Chain Reaction (PCR) results called to and read back by: Dino Casillas at 0248 on 06/29/2021. [facility] Special Requests RT FA 3 ML [facility] Specimen Description .BLOOD [facility] Culture, Blood 2on 2 Bacteria identified Cx Nom (Unsp spec) Positive Abnormal [facility] Bacteria identified Cx Nom (Unsp spec) DIRECT GRAM STAIN FROM BOTTLE: GRAM POSITIVE COCCI IN CLUSTERS [facility] Bacteria identified Cx Nom (Unsp spec) STAPHYLOCOCCUS AUREUS For susceptibility, refer to previous culture. Abnormal [facility] Bacteria identified Cx Nom (Unsp spec) (NOTE) Direct Gram Stain from bottle result called to and read back by: Dino Casillas at 0245 on 06/29/2021. [facility] Interpretation and review of laboratory results Abnormal [facility] Special Requests LEFT HAND 1 ML [facility] Specimen Description .BLOOD [facility] Hemoglobin and Hematocriton 06-30-2021 Hematocrit (Bld) [Volume fraction] 29.3 % Low 36.3 - 47.1 % [facility] Hemoglobin.gastrointest inal spec 1 Ql (Stl) 9.4 g/dL Low 11.9 - 15.1 g/dL [facility] Interpretation and review of laboratory results Abnormal [facility] POC Glucose Fingerstickon Glucose [Mass/Vol] 173 mg/dL High 65 - 105 mg/dL [facility] Interpretation and review of laboratory results Abnormal [facility] Glucose [Mass/Vol] 182 mg/dL High 65 - 105 mg/dL [facility] Interpretation and review of laboratory results Abnormal [facility] Glucose [Mass/Vol] 171 mg/dL High 65 - 105 mg/dL [facility] Interpretation and review of laboratory results Abnormal [facility] XR FOOT LEFT (MIN 3 VIEWS)on 06-30-2021 PN RIS CONSOLIDATED [facility] RIS CONSOLIDATED [facility] Work Phone: XR FOOT LEFT (MIN 3 VIEWS)Or dered By: Enedelia Jose on 06-30-2021 ARASELI ANTHONY [facility] Work Phone: Acetaminophen Levelon 2021 Acetaminophen Level <5 Low 10 - 30 ug/mL [facility] Ammoniaon 06-28-2021 Ammonia (P) [Moles/Vol] 12 umol/L 11 - 51 umol/L [facility] CBC with Auto Differentialon 06-28-2021 Absolute Bands # 0.43 [facility] Absolute Eos # [facility] Absolute Lymph # 1.51 [facility] alth Absolute Antelope # 1.08 High [facility] Hea lth Bands 2 % 0 - 10 % [facility] Basophils (Bld) [#/Vol] 0 - 2 % [facility] Basophils Absolute [facility] Eosinophils % [facility] 5 % [facility] (Bld) [Volume fraction] 30.9 % Low 36 - 46 % [facility] Hemoglobin.gastrointest inal spec 1 Ql (Stl) 10.1 g/dL Low 12.0 - 16.0 g/dL [facility] Interpretation and review of laboratory results Abnormal [facility] Lymphocytes/100 WBC (Bld) 7 % Low 15 - 40 % [facility] MCH (RBC) [Entitic mass] 26.2 pg 26 - 34 pg [facility] MCHC (RBC) [Mass/Vol] 32.6 g/dL 31 - 3 7 g/dL [facility] MCV (RBC) [Entitic vol] 80.5 fL 80 - 100 fL [facility] Monocytes/100 WBC (Bld) 5 % 4 - 8 % [facility] [employer] Morphology Malachi (Bld) [Interp] Manual Differential Performed [facility] Platelet distribution width (Bld) [Ratio] 17.1 % High 12.1 - 15.2 % [facility] Platelets (Bld) [#/Vol] 537 10*3/uL High [facility] RBC (Bld) [#/Vol] 3.83 10*6/uL Low 4.0 - 5.2 m/uL [facility] Segmented neutrophils/100 WBC (Bld) 86 % High 47 - 75 % [facility] Segs Absolute 18.[address] [facility] WBC (Bld) [#/Vol] 21.5 10*3/uL Critically high [facility] CKon 06-28-2021 CK [Catalytic activity/Vol] 63 U/L 26 - 192 U/L [facility] COVID-19, Rapidon 06-28-2021 SARS-CoV-2 (COVID-19) RNA CAL+probe Ql (Unsp spec) Not detected Not Detected [facility] Comment on above: Rapid NAAT: [...] management decisions. Fact sheet for Healthcare Providers: https://www.fda.gov/media/013746/download Fact sheet for Patients: https://www.fda.gov/media/991843/download Methodology: Isothermal Nucleic Acid Amplification Specimen Description .NASOPHARYNGEAL SWAB [facility] CT ABDOMEN PELVIS W IV CONTR AST Additional Contrast? Noneon 06-28-2021 1. No evidence of bowel obstruction. 2. Normal appendix. 3. Status post cholecystectomy. PN RIS CONSOLIDATED EXAMINATION: CT ABDOMEN PELVIS W [...] Laminectomy changes are noted at L4. [facility] RIS CONSOLIDATED Charly Mendoza MD - 06/28/2021 EXAMINATION: [...] 2. Normal appendix. 3. Status post cholecystectomy. [employer] Phone: Radiology Study observation (narrative) [employer] Phone: CT ABDOMEN PELVIS W IV CONTR AST Additional Contrast? NoneOrdered By: Charly Mendoza on 06-28-2021 [employer] Phone: CT Head WO Contraston 2021 1. Poorly diagnostic examination due to patient motion. 2. No gross evidence of hemorrhage or mass effect. A telephone call regarding the findings in examination and limitations the study was made to and acknowledged by Dr. Boothe in the emergency department at 4:55 AM on 06/28/2021. [facility] RIS CONSOLIDATED INDICATION: 56 years old; Female. [...] evaluated in the present study. OTHER: None. [facility] CONSOL[facility] Kike Maguire - 06/28/2021 INDICATION: 56 years old; Female. [...] emergency department at 4:55 AM on 06/28/2021. [employer] Work Phone: Radiology Study observation (narrative) [employer] Work Phone: CT Head WO ContrastOrdered B y: Kike Maguire on 06-28-2021 [employer] Work Phone: Comprehensive Metabolic Pane l w/ Reflex to MGon 06-28-2021 Albumin [Mass/Vol] 4 g/dL 3.5 - 5.2 g/dL [employer] ALP (Bld) [Catalytic activity/Vol] 290 U/L High 35 - 104 U/L [employer] ALT [Catalytic activity/Vol] 25 U/L 5 - 33 U/L [employer] Anion gap [Moles/Vol] 16 mmol/L 9 - 17 mmol/L [employer] AST [Catalytic activity/Vol] 16 U/L <32 [employer] Bilirubin [Mass/Vol] 0.45 mg/dL 0.30 - 1.20 mg/dL [employer] Calcium [Mass/Vol] 9.9 mg/dL 8.6 - 10. 4 mg/dL [employer] Chloride [Moles/Vol] 95 mmol/L Low 98 - 10 7 mmol/L [employer] CO2 [Moles/Vol] 27 mmol/L 20 - 31 mmol/L [employer] Creatinine [Mass/Vol] 0.89 mg/dL 0.50 - 0.90 mg/dL [employer] Free PSA/Total PSA [Mass fraction] 8.5 g/dL High 6.4 - 8.3 g/dL [employer] GFR >60 >60 mL/min [facility] [employer] GFR Non- >60 >60 mL/min [employer] GFR/1.73 sq M.predicted MDRD (S/P/Bld) [Vol rate/Area] [employer] Comment on above: Average GFR for 50-5 9 years old: 93 mL/min/1.73sq m Chronic Kidney Disease: <60 mL/min/1.73sq m Kidney failure: <15 mL/min/1.73sq m eGFR calculated using average adult body mass. Additional eGFR calculator available at: http://www.[employer].com.UserTesting/multiple_crcl_2011.htm Glucose [Mass/Vol] 268 mg/dL High 70 - 99 mg/dL [facility] Interpretation and review of laboratory results Abnormal [facility] Potassium [Moles/Vol] 3.4 mmol/L Low 3.7 - 5.3 mmol/L [facility] Sodium [Moles/Vol] 138 mmol/L 135 - 144 mmol/L [facility] Urea nitrogen (BldV) [Mass/Vol] 25 mg/dL High 6 - 20 mg/dL [facility] Urea nitrogen/Creatinine (Bld) [Mass ratio] 28 High [facility] Ethanolon 06-28-2021 Ethanol [Mass/Vol] mg/dL <10 mg/dL [facility] Ethanol percent <0.010 % [facility] Lactic Acidon 06-28-2021 Lactate [Moles/Vol] 1.6 mmol/L 0.5 - 2. 2 mmol/L [facility] Lipaseon 06-28-2021 Lipase [Catalytic activity/Vol] 30 U/L 13 - 60 U/L [facility] Magnesiumon 06-28-2021 Magnesium [Mass/Vol] 1.9 mg/dL 1.6 - 2 .6 mg/dL [facility] Microscopic Urinalysison - [facility] Epithelial Cells UA 0 TO 2 /HPF [facility] RBC, UA 5 TO 10 [facility] No Panel Informationon 06-28 Interpretation and review of laboratory results Abnormal [facility] Salicylateon 06-28-2021 Salicylate Lvl <1 Low 3 - 10 mg/dL [facility] Urinalysison 06-28-2021 Bilirubin Urine Negative NEGATIVE [facility] Color, UA Yellow Yellow [facility] Glucose, Ur 1000 mg/dL Abnormal NEGATIVE [facility] Interpretation and review of laboratory results Abnormal [facility] Ketones Ql (U) SMALL Abnormal NEGATIVE [facility] Leukocyte esterase Test strip Ql (U) Negative NEGATIVE [facility] Nitrite, Urine Negative NEGATIVE [facility] pH, UA 7.0 [facility] Protein, UA 2+ Abnormal NEGATIVE [facility] Specific [place], UA 1.010 [facility] Turbidity UA Hazy Abnormal Clear [facility] Urinalysis Comments [facility] Urine Hgb 1+ Abnormal NEGATIVE [facility] Urobilinogen, Urine Normal Normal [facility] Urine Drug Screenon 06-29-19 22 Amphetamine Screen, Ur Negative NEGATIVE [facility] Comment on above: (Positive cutoff 500 ng/mL) Barbiturate Screen, Ur Negative NEGATIVE [facility] Comment on above: (Positive cutoff 200 ng/mL) Benzodiazepine Screen, Urine Negative NEGATIVE [facility] Comment on above: (Positive cutoff 150 ng/mL) Cannabinoid Scrn, Ur Negative NEGATIVE [facility] Comment on above: (Positive cutoff 50 ng/mL) Cocaine Metabolite, Urine Negative NEGATIVE [facility] Comment on above: (Positive cutoff 150 ng/mL) Interpretation and review of laboratory results Abnormal [facility] Methadone Screen, Urine Negative NEGATIVE [facility] Comment on above: (Positive cutoff 200 ng/mL) Methamphetamine, Urine Negative NEGATIVE [facility] Comment on above: (Positive cutoff 500 ng/mL) Opiates, Urine Positive Abnormal NEGATIVE [facility] Comment on above: (Positive cutoff 100 ng/mL) Oxycodone Screen, Ur Negative NEGATIVE [facility] Comment on above: (Positive cutoff 100 ng/mL) Phencyclidine, Urine Negative NEGATIVE [facility] Comment on above: (Positive cutoff 25 ng/mL) Propoxyphene, Urine Negative NEGATIVE [facility] Comment on above: (Positive cutoff 300 ng/mL) Tricyclic Antidepressants, Urine Negative NEGATIVE [facility] Comment on above: (Positive cutoff 300 ng/mL) Drug screen results are to be used for medical purposes only. All positive results are unconfirmed. Testing for employment or legal uses should be sent to a reference laboratory for confirmation. [employer] [facility] XR CHEST PORTABLEon 06-29-19 22 No acute abnormality. [facility] CON[facility] CLINICAL HISTORY: altered mental status COMPARISON: none FINDINGS: Portable AP view of the chest obtained. Cardiomediastinal silhouette is normal. Lungs are clear, no evidence of infiltrate, suspicious nodule, or mass. No evidence of significant pleural fluid on this portable projection. No acute bony abnormality. [facility] Leonardo Lopes M D - 06/28/2021 CLINICAL HISTORY: altered mental status COMPARISON: none FINDINGS: Portable AP view of the chest obtained. Cardiomediastinal silhouette is normal. Lungs are clear, no evidence of infiltrate, suspicious nodule, or mass. No evidence of significant pleural fluid on this portable projection. No acute bony abnormality. IMPRESSION: No acute abnormality. [facility] [employer] Work Phone: Radiology Study observation (narrative) Joy Ramsey [employer] Work Phone: XR CHEST PORTABLEOrdered By: Leonardo Lopes on 06-28-2021 [employer] Work Phone: COVID-19, MOLECULARon 2021 SARS-CoV-2 (COVID-19) RNA CAL+probe Ql (Unsp spec) Not detected Normal Not Detected [facility] Comment on above: Order Comment: This test [...] at the following links: For Healthcare Providers: https://www.fda.gov/media/292251/download For Patients: https://www.fda.gov/media/549319/download Performed By: #### L [id number] #### [facility] [address], [place] [address] Skylar Niño M.D. [id number] MR FOOT LEFT WITHOUT CONTRAS Ton 05-21-2021 [...] on FriMay 22, 2021 7:54:35 AM EDT Normal [facility] Comment on above: Order Comment: [...] ID: [id number] Dictated by: LUIS POLANCO on [place] May 20, 2021 4:40:24 PM EDT Transcribed by: LUIS POLANCO on [place] May 20, 2021 4:40:24 PM EDT Finalized by: LUIS POLANCO on [place] May 20, 2021 4:40:24 PM EDT Normal [facility] Comment on above: Order Comment: [...] patent on the right. SCA patent bilaterally. LIFE ASSURANCE REPRESENTATIVE patent bilaterally. Basilar artery and basilar [...] Sat May 19, 2021 3:53:28 AM EDT Normal [facility] Comment on above: Order Comment: [...] May 19, 2021 10:41:14 PM EDT Normal [facility] Comment on above: Order Comment: [...] at C4-5. No evidence of foraminal stenosis. [facility]/ Workstation ID: [id number] Dictated by: Pili FONTAINE on [place] May 20, 2021 8:14:06 AM EDT Transcribed by: JANY FORBES on [place] May 20, 2021 8:50:25 AM EDT Finalized by: Pili FONTAINE on [place] May 20, 2021 2:03:56 PM EDT Normal [facility] Comment on above: Order Comment: [...] was absent. Workstation ID: [id number] Dictated by: OJS FREDERICK on Sat May 19, 2021 6:07:29 PM EDT Transcribed by: JSO FREDERICK on Sat May 19, 2021 6:07:29 PM EDT Finalized by: JOS FREDERICK on Sat May 19, 2021 6:07:29 PM EDT Normal [facility] Comment on above: Order Comment: Injur y/Trauma or Illness?:Illness/Other How long have you had these symptoms (acute/chronic)?:Acute Reason for exam?:elevated liver enzymes History of cancer?:u Surgeries, chemotherapy, or radiation?:u Type of Exam?:Initial Additional signs and symptoms?:n COVID-19, MOLECULARon 2021 SARS-CoV-2 (COVID-19) RNA CAL+probe Ql (Unsp spec) Not detected Normal Not Detected [facility] Comment on above: Result Comment: This test was performed under the FDA's Emergency Use Authorization (EUA). Testing was performed using the Xpert Xpress SARS-CoV-2 RT-PCR Second Light assay on the GeneXpert Dx platform. This test has not been approved for use in asymptomatic patients and its performance in this patient population has not been evaluated. Negative results do not rule out the presence of SARS-CoV-2/COVID-19. Fact sheets for this EUA can be found at the following links: For Healthcare Providers: https://www.fda.gov/media/770428/download For Patients: https://www.fda.gov/media/249519/download Performed By: #### L [id number] #### SH [address] [address] Skylar Niño M.D. [id number] CT CERVICAL SPINE WITHOUT CO NTRASTon 05-18-2021 [...] to severe right facet arthropathy at C5-C6. [id number] stenosis of the right C5-C6 neural foramen [...] the cervical spine without central spinal stenosis. [id number] stenosis the right C5-C6 neural foramen secondary to mild uncovertebral hypertrophy and moderate to severe right facet hypertrophy. Workstation ID: [id number] Dictated by: ALBERT MARIA on FriMay 18, 2021 5:23:47 PM EDT Transcribed by: ALBERT MARIA on FriMay 18, 2021 5:23:47 PM EDT Finalized by: ALBERT MARIA on FriMay 18, 2021 5:23:47 PM EDT [facility] Comment on above: Order Comment: Injur [...] superior alt MD: -11.18 (-7.05) OS: Reliable: 03/05 FL, 0% FP, 12% FN Stable: worse Findings: superior forming alt MD: -7.89 (-5.69) Normal [facility] BUN CREAon 05-11-2021 Creatinine [Mass/Vol] 1.38 mg/dL High 0.50 - 1.20 mg/dL [facility] GFR/1.73 sq M.predicted CKD-EPI (S/P/Bld) [Vol rate/Area] 44 Low >=60 mL/min/1.73 m2 [facility] Comment on above: Reported eGFR is bas ed on the CKD-EPI 2020 equation using creatinine, age, and sex. Interpretation and review of laboratory results Abnormal [facility] Urea nitrogen [Mass/Vol] 27 mg/dL High 7 - 25 mg/dL [facility] Urea nitrogen/Creatinine [Mass ratio] 20 mg/mg [facility] Creatinine [Mass/Vol] 1.38 mg/dL High 0.50-1.20 [facility] Comment on above: Order Comment: Prior to first [facility] Infusion and every 2 weeks if baseline CR is within normal limits. Performed By: #### B CR #### [facility] (DEFAULT) [address] [place] [address] GFR/1.73 sq M.predicted among non-blacks MDRD (S/P/Bld) [Vol rate/Area] 44 mL/min/{1.73_m2} Low >=60 [facility] Comment on above: Order Comment: Prior to first [facility] Infusion and every 2 weeks if baseline CR is within normal limits. Result Comment: Repo rted eGFR is based on the CKD-EPI 2020 equation using creatinine, age, and sex. Performed By: #### B CR #### [facility] (DEFAULT) [address] [place] [address] Urea nitrogen [Mass/Vol] 27 mg/dL High 7-25 [facility] Comment on above: Order Comment: Prior to first [facility] Infusion and every 2 weeks if baseline CR is within normal limits. Performed By: #### B CR #### [facility] (DEFAULT) [address] [place] [address] Urea nitrogen/Creatinine [Mass ratio] 20 mg/mg Normal [facility] Comment on above: Order Comment: Prior to first [facility] Infusion and every 2 weeks if baseline CR is within normal limits. Performed By: #### B CR #### [facility] (DEFAULT) [address] [place] [address] CBC AND ELECTRONIC DIFFon Basophils (Bld) [#/Vol] 10*3/uL 0.00 - 0.15 K/uL [facility] Basophils/100 WBC (Bld) 0.2 % [facility] DIFF STATUS Electronic Differential [facility] Eosinophils (Bld) [#/Vol] 0.16 10*3/uL 0.00 - 0.42 K/uL [facility] Eosinophils/100 WBC (Bld) 1.9 % [facility] Erythrocyte distribution width (RBC) [Ratio] 15.4 % High 10.8 - 14.9 % [facility] Hematocrit (Bld) [Volume fraction] 36.1 % 34.9 - 44.3 % [facility] Hemoglobin (Bld) [Mass/Vol] 11.7 g/dL 11.4 - 15.2 g/dL [facility] Immature granulocytes (Bld) [#/Vol] 10*3/uL <=0.09 K/uL [facility] Immature granulocytes/100 WBC (Bld) 0.2 % [facility] Interpretation and review of laboratory results Abnormal [facility] Lymphocytes (Bld) [#/Vol] 2.68 10*3/uL 1.16 - 3.51 K/uL [facility] Lymphocytes/100 WBC (Bld) 32.0 % [facility] MCH (RBC) [Entitic mass] 27.6 pg 25.9 - 33.9 pg [facility] MCHC (RBC) [Mass/Vol] 32.4 g/dL 31.4 - 35.9 g/dL [facility] MCV (RBC) [Entitic vol] 85.1 fL 79.6 - 97.7 fL [facility] Monocytes (Bld) [#/Vol] 0.37 10*3/uL 0.22 - 0.87 K/uL [facility] Monocytes/100 WBC (Bld) 4.4 % [facility] Neutrophils (Bld) [#/Vol] 5.13 10*3/uL 1.64 - 7.28 K/uL [facility] Nucleated RBC/100 WBC (Bld) [Ratio] 0.0 % <=0.2 /100 WBC [facility] Platelet mean volume (Bld) [Entitic vol] 9.8 fL 8.5 - 12.2 fL [facility] Platelets (Bld) [#/Vol] 338 10*3/uL 150 - 393 K/uL [facility] RBC (Bld) [#/Vol] 4.24 10*6/uL [facility] Segmented neutrophils/100 WBC (Bld) 61.3 % [facility] WBC (Bld) [#/Vol] 8.38 10*3/uL 3.99 - 11.19 K/uL [facility] Basophils (Bld) [#/Vol] 10*3/uL Normal 0.00-0.15 [facility] Comment on above: Order Comment: Prior to first [facility] Infusion and then every 2 weeks.until results within normal limits. Collect weekly if baseline is abnormal. Performed By: #### L [id number] #### [facility] (DEFAULT) [address] [address] Basophils/100 WBC (Bld) 0.2 % Normal [facility] Comment on above: Order Comment: Prior to first [facility] Infusion and then every 2 weeks.until results within normal limits. Collect weekly if baseline is abnormal. Performed By: #### L [id number] #### [facility] (DEFAULT) [address] [address] DIFF STATUS Electronic Differential Normal [facility] Comment on above: Order Comment: Prior to first [facility] Infusion and then every 2 weeks.until results within normal limits. Collect weekly if baseline is abnormal. Performed By: #### L [id number] #### [facility] (DEFAULT) [address] [address] Eosinophils (Bld) [#/Vol] 0.16 10*3/uL Normal 0.00-0.42 [facility] Comment on above: Order Comment: Prior to first [facility] Infusion and then every 2 weeks.until results within normal limits. Collect weekly if baseline is abnormal. Performed By: #### L [id number] #### [facility] (DEFAULT) [address] [address] Eosinophils/100 WBC (Bld) 1.9 % Normal [facility] Comment on above: Order Comment: Prior to first [facility] Infusion and then every 2 weeks.until results within normal limits. Collect weekly if baseline is abnormal. Performed By: #### L [id number] #### [facility] (DEFAULT) [address] [address] Hematocrit (Bld) [Volume fraction] 36.1 % Normal 34.9-44.3 [facility] Comment on above: Order Comment: Prior to first [facility] Infusion and then every 2 weeks.until results within normal limits. Collect weekly if baseline is abnormal. Performed By: #### L [id number] #### [facility] (DEFAULT) [address] [address] Hemoglobin (Bld) [Mass/Vol] 11.7 g/dL Normal 11.4-15.2 [facility] Comment on above: Order Comment: Prior to first [facility]ex Infusion and then every 2 weeks.until results within normal limits. Collect weekly if baseline is abnormal. Performed By: #### L [id number] #### [facility] (DEFAULT) [address] [address] Immature Grans % 0.2 % Normal [facility] Comment on above: Order Comment: Prior to first [facility] Infusion and then every 2 weeks.until results within normal limits. Collect weekly if baseline is abnormal. Performed By: #### L [id number] #### [facility] (DEFAULT) [address] [address] Immature Grans Absolute <0.04 Normal <=0.09 [facility] Comment on above: Order Comment: Prior to first [facility]ex Infusion and then every 2 weeks.until results within normal limits. Collect weekly if baseline is abnormal. Performed By: #### L [id number] #### [facility] (DEFAULT) [address] [address] Lymphocytes (Bld) [#/Vol] 2.68 10*3/uL Normal 1.16-3.51 [facility] Comment on above: Order Comment: Prior to first [facility]ex Infusion and then every 2 weeks.until results within normal limits. Collect weekly if baseline is abnormal. Performed By: #### L [id number] #### [facility] (DEFAULT) [address] [address] Lymphocytes/100 WBC (Bld) 32.0 % Normal [facility] Comment on above: Order Comment: Prior to first [facility]ex Infusion and then every 2 weeks.until results within normal limits. Collect weekly if baseline is abnormal. Performed By: #### L [id number] #### [facility] (DEFAULT) [address] [address] MCV (RBC) [Entitic vol] 85.1 fL Normal 79.6-97.7 [facility] Comment on above: Order Comment: Prior to first [facility]ex Infusion and then every 2 weeks.until results within normal limits. Collect weekly if baseline is abnormal. Performed By: #### L [id number] #### [facility] (DEFAULT) [address] [address] Mean Cell Hgb 27.6 pg Normal 25.9-33.9 [facility] Comment on above: Order Comment: Prior to first [facility]ex Infusion and then every 2 weeks.until results within normal limits. Collect weekly if baseline is abnormal. Performed By: #### L [id number] #### [facility] (DEFAULT) [address] [address] Mean Cell Hgb Conc 32.4 g/dL Normal 31.4-35.9 [facility] Comment on above: Order Comment: Prior to first [facility]ex Infusion and then every 2 weeks.until results within normal limits. Collect weekly if baseline is abnormal. Performed By: #### L [id number] #### [facility] (DEFAULT) [address] [address] Monocytes (Bld) [#/Vol] 0.37 10*3/uL Normal 0.22-0.87 [facility] Comment on above: Order Comment: Prior to first Gam[facility]ex Infusion and then every 2 weeks.until results within normal limits. Collect weekly if baseline is abnormal. Performed By: #### L [id number] #### [facility] (DEFAULT) [address] [address] Monocytes/100 WBC (Bld) 4.4 % Normal [facility] Comment on above: Order Comment: Prior to first Gamunex Infusion and then every 2 weeks.until results within normal limits. Collect weekly if baseline is abnormal. Performed By: #### L [id number] #### [facility] (DEFAULT) [address] [address] Nucleated RBC 0.0 /100 WBC Normal <=0.2 [facility] Comment on above: Order Comment: Prior to first Gamunex Infusion and then every 2 weeks.until results within normal limits. Collect weekly if baseline is abnormal. Performed By: #### L [id number] #### [facility] (DEFAULT) [address] [address] Platelet mean volume (Bld) [Entitic vol] 9.8 fL Normal 8.5-12.2 [facility] Comment on above: Order Comment: Prior to first Gamunex Infusion and then every 2 weeks.until results within normal limits. Collect weekly if baseline is abnormal. Performed By: #### L [id number] #### [facility] (DEFAULT) [address] [address] Platelets (Bld) [#/Vol] 338 10*3/uL Normal 150-393 [facility] Comment on above: Order Comment: Prior to first Gamunex Infusion and then every 2 weeks.until results within normal limits. Collect weekly if baseline is abnormal. Performed By: #### L [id number] #### [facility] (DEFAULT) [address] [address] RBC (Bld) [#/Vol] 4.24 10*6/uL Normal 3.91-5.04 [facility] Comment on above: Order Comment: Prior to first [facility]ex Infusion and then every 2 weeks.until results within normal limits. Collect weekly if baseline is abnormal. Performed By: #### L [id number] #### [facility] (DEFAULT) [address] [address] RBC Distribution 15.4 % High 10.8-14.9 [facility] Comment on above: Order Comment: Prior to first Gamunex Infusion and then every 2 weeks.until results within normal limits. Collect weekly if baseline is abnormal. Performed By: #### L [id number] #### [facility] (DEFAULT) [address] [address] Segs + Bands Auto 61.3 % Normal [facility] Comment on above: Order Comment: Prior to first Gamunex Infusion and then every 2 weeks.until results within normal limits. Collect weekly if baseline is abnormal. Performed By: #### L [id number] #### [facility] (DEFAULT) [address] [address] Segs + Bands,Absolute Auto 5.13 K/uL Normal 1.64-7.28 [facility] Comment on above: Order Comment: Prior to first Gamunex Infusion and then every 2 weeks.until results within normal limits. Collect weekly if baseline is abnormal. Performed By: #### L [id number] #### [facility] (DEFAULT) [address] [address] WBC (Bld) [#/Vol] 8.38 10*3/uL Normal 3.99-11.19 [facility] Comment on above: Order Comment: Prior to first Gamunex Infusion and then every 2 weeks.until results within normal limits. Collect weekly if baseline is abnormal. Performed By: #### L [id number] #### [facility] (DEFAULT) [address] [address] BUN CREAon 04-25-2021 Creatinine [Mass/Vol] 1.29 mg/dL High 0.50-1.[address] [facility] Comment on above: Order Comment: Prior to first Gamunex Infusion and every 2 weeks if baseline CR is within normal limits. Performed By: #### B CR #### [facility] (DEFAULT) [address] [address] GFR/1.73 sq M.predicted among non-blacks MDRD (S/P/Bld) [Vol rate/Area] 48 mL/min/{1.73_m2} Low >=60 [facility] Comment on above: Order Comment: Prior to first Gamunex Infusion and every 2 weeks if baseline CR is within normal limits. Result Comment: Repo rted eGFR is based on the CKD-EPI 2020 equation using creatinine, age, and sex. Performed By: #### B CR #### [facility] (DEFAULT) [address] [address] Urea nitrogen [Mass/Vol] 27 mg/dL High 7-25 [facility] Comment on above: Order Comment: Prior to first [facility]unex Infusion and every 2 weeks if baseline CR is within normal limits. Performed By: #### B CR #### [facility] (DEFAULT) [address] [address] Urea nitrogen/Creatinine [Mass ratio] 21 mg/mg Normal [facility] Comment on above: Order Comment: Prior to first Gam[facility]ex Infusion and every 2 weeks if baseline CR is within normal limits. Performed By: #### B CR #### [facility] (DEFAULT) [address] [address] CBC AND ELECTRONIC DIFFon Basophils (Bld) [#/Vol] 0.05 10*3/uL Normal 0.00-0.15 [facility] Comment on above: Order Comment: Prior to first [facility]ex Infusion and then every 2 weeks.until results within normal limits. Collect weekly if baseline is abnormal. Performed By: #### L [id number] #### [facility] (DEFAULT) [address] [address] Basophils/100 WBC (Bld) 0.6 % Normal [facility] Comment on above: Order Comment: Prior to first Gam[employer]ex Infusion and then every 2 weeks.until results within normal limits. Collect weekly if baseline is abnormal. Performed By: #### L [id number] #### [facility] (DEFAULT) [address] [address] DIFF STATUS Electronic Differential Normal [facility] Comment on above: Order Comment: Prior to first [facility]ex Infusion and then every 2 weeks.until results within normal limits. Collect weekly if baseline is abnormal. Performed By: #### L [id number] #### [facility] (DEFAULT) [address] [address] Eosinophils (Bld) [#/Vol] 0.23 10*3/uL Normal 0.00-0.42 [facility] Comment on above: Order Comment: Prior to first [facility]ex Infusion and then every 2 weeks.until results within normal limits. Collect weekly if baseline is abnormal. Performed By: #### L [id number] #### [facility] (DEFAULT) [address] [address] Eosinophils/100 WBC (Bld) 2.6 % Normal [facility] Comment on above: Order Comment: Prior to first [facility]unex Infusion and then every 2 weeks.until results within normal limits. Collect weekly if baseline is abnormal. Performed By: #### L [id number] #### [facility] (DEFAULT) [address] [address] Hematocrit (Bld) [Volume fraction] 34.0 % Low 34.9-44.3 [facility] Comment on above: Order Comment: Prior to first [facility]ex Infusion and then every 2 weeks.until results within normal limits. Collect weekly if baseline is abnormal. Performed By: #### L [id number] #### [facility] (DEFAULT) [address] [address] Hemoglobin (Bld) [Mass/Vol] 10.7 g/dL Low 11.4-15.2 [facility] Comment on above: Order Comment: Prior to first Gamunex Infusion and then every 2 weeks.until results within normal limits. Collect weekly if baseline is abnormal. Performed By: #### L [id number] #### [facility] (DEFAULT) [address] [address] Immature Grans % 0.2 % Normal [facility] Comment on above: Order Comment: Prior to first Gamunex Infusion and then every 2 weeks.until results within normal limits. Collect weekly if baseline is abnormal. Performed By: #### L [id number] #### [facility] (DEFAULT) [address] [address] Immature Grans Absolute <0.04 Normal <=0.09 [facility] Comment on above: Order Comment: Prior to first Gamunex Infusion and then every 2 weeks.until results within normal limits. Collect weekly if baseline is abnormal. Performed By: #### L [id number] #### [facility] (DEFAULT) [address] [address] Lymphocytes (Bld) [#/Vol] 2.20 10*3/uL Normal 1.16-3.51 [facility] Comment on above: Order Comment: Prior to first Gam[facility]ex Infusion and then every 2 weeks.until results within normal limits. Collect weekly if baseline is abnormal. Performed By: #### L [id number] #### [facility] (DEFAULT) [address] [address] Lymphocytes/100 WBC (Bld) 24.5 % Normal [facility] Comment on above: Order Comment: Prior to first [facility]ex Infusion and then every 2 weeks.until results within normal limits. Collect weekly if baseline is abnormal. Performed By: #### L [id number] #### [facility] (DEFAULT) [address] [address] MCV (RBC) [Entitic vol] 85.4 fL Normal 79.6-97.7 [facility] Comment on above: Order Comment: Prior to first Gamunex Infusion and then every 2 weeks.until results within normal limits. Collect weekly if baseline is abnormal. Performed By: #### L [id number] #### [facility] (DEFAULT) [address] [address] Mean Cell Hgb 26.9 pg Normal 25.9-33.9 [facility] Comment on above: Order Comment: Prior to first Gamunex Infusion and then every 2 weeks.until results within normal limits. Collect weekly if baseline is abnormal. Performed By: #### L [id number] #### [facility] (DEFAULT) [address] [address] Mean Cell Hgb Conc 31.5 g/dL Normal 31.4-35.9 [facility] Comment on above: Order Comment: Prior to first Gamunex Infusion and then every 2 weeks.until results within normal limits. Collect weekly if baseline is abnormal. Performed By: #### L [id number] #### [facility] (DEFAULT) [address] [address] Monocytes (Bld) [#/Vol] 0.41 10*3/uL Normal 0.22-0.87 [facility] Comment on above: Order Comment: Prior to first Gamunex Infusion and then every 2 weeks.until results within normal limits. Collect weekly if baseline is abnormal. Performed By: #### L [id number] #### [facility] (DEFAULT) [address] [address] Monocytes/100 WBC (Bld) 4.6 % Normal [facility] Comment on above: Order Comment: Prior to first Gamunex Infusion and then every 2 weeks.until results within normal limits. Collect weekly if baseline is abnormal. Performed By: #### L [id number] #### [facility] (DEFAULT) [address] [address] Nucleated RBC 0.0 /100 WBC Normal <=0.2 [facility] Comment on above: Order Comment: Prior to first Gamunex Infusion and then every 2 weeks.until results within normal limits. Collect weekly if baseline is abnormal. Performed By: #### L [id number] #### [facility] (DEFAULT) [address] [address] Platelet mean volume (Bld) [Entitic vol] 9.8 fL Normal 8.5-12.2 [facility] Comment on above: Order Comment: Prior to first Gamunex Infusion and then every 2 weeks.until results within normal limits. Collect weekly if baseline is abnormal. Performed By: #### L [id number] #### [facility] (DEFAULT) [address] [address] Platelets (Bld) [#/Vol] 389 10*3/uL Normal 150-393 [facility] Comment on above: Order Comment: Prior to first Gamunex Infusion and then every 2 weeks.until results within normal limits. Collect weekly if baseline is abnormal. Performed By: #### L [id number] #### [facility] (DEFAULT) [address] [address] RBC (Bld) [#/Vol] 3.98 10*6/uL Normal 3.91-5.04 [facility] Comment on above: Order Comment: Prior to first Gamunex Infusion and then every 2 weeks.until results within normal limits. Collect weekly if baseline is abnormal. Performed By: #### L [id number] #### [facility] (DEFAULT) [address] [address] RBC Distribution 14.8 % Normal 10.8-14.9 [facility] Comment on above: Order Comment: Prior to first Gamunex Infusion and then every 2 weeks.until results within normal limits. Collect weekly if baseline is abnormal. Performed By: #### L [id number] #### [facility] (DEFAULT) [address] [address] Segs + Bands Auto 67.5 % Normal [facility] Comment on above: Order Comment: Prior to first Gamunex Infusion and then every 2 weeks.until results within normal limits. Collect weekly if baseline is abnormal. Performed By: #### L [id number] #### [facility] (DEFAULT) [address] [address] Segs + Bands,Absolute Auto 6.07 K/uL Normal 1.64-7.28 [facility] Comment on above: Order Comment: Prior to first Gamunex Infusion and then every 2 weeks.until results within normal limits. Collect weekly if baseline is abnormal. Performed By: #### L [id number] #### [facility] (DEFAULT) [address] [address] WBC (Bld) [#/Vol] 8.98 10*3/uL Normal 3.99-11.19 [facility] Comment on above: Order Comment: Prior to first Gamunex Infusion and then every 2 weeks.until results within normal limits. Collect weekly if baseline is abnormal. Performed By: #### L [id number] #### [facility] (DEFAULT) [address] [address] CBC AND ELECTRONIC DIFFon Basophils (Bld) [#/Vol] 10*3/uL Normal 0.00-0.15 [facility] Comment on above: Order Comment: Prior to first [employer] and then every 2 weeks.until results within normal limits. Collect weekly if baseline is abnormal. Performed By: #### L [id number] #### [facility] (DEFAULT) [address] [address] Basophils/100 WBC (Bld) 0.3 % Normal [facility] Comment on above: Order Comment: Prior to first [employer] and then every 2 weeks.until results within normal limits. Collect weekly if baseline is abnormal. Performed By: #### L [id number] #### [facility] (DEFAULT) [address] [address] DIFF STATUS Electronic Differential Normal [facility] Comment on above: Order Comment: Prior to first [employer] [facility] and then every 2 weeks.until results within normal limits. Collect weekly if baseline is abnormal. Performed By: #### L [id number] #### [facility] (DEFAULT) [address] [address] Eosinophils (Bld) [#/Vol] 0.24 10*3/uL Normal 0.00-0.42 [facility] Comment on above: Order Comment: Prior to first [employer] [facility] and then every 2 weeks.until results within normal limits. Collect weekly if baseline is abnormal. Performed By: #### L [id number] #### [facility] (DEFAULT) [address] [address] Eosinophils/100 WBC (Bld) 2.4 % Normal [facility] Comment on above: Order Comment: Prior to first [employer] and then every 2 weeks.until results within normal limits. Collect weekly if baseline is abnormal. Performed By: #### L [id number] #### [facility] (DEFAULT) [address] [address] Hematocrit (Bld) [Volume fraction] 33.4 % Low 34.9-44.3 [facility] Comment on above: Order Comment: Prior to first [employer] [facility] and then every 2 weeks.until results within normal limits. Collect weekly if baseline is abnormal. Performed By: #### L [id number] #### [facility] (DEFAULT) [address] [address] Hemoglobin (Bld) [Mass/Vol] 10.3 g/dL Low 11.4-15.2 [facility] Comment on above: Order Comment: Prior to first [employer] [facility] and then every 2 weeks.until results within normal limits. Collect weekly if baseline is abnormal. Performed By: #### L [id number] #### [facility] (DEFAULT) [address] [address] Immature Grans % 0.2 % Normal [facility] Comment on above: Order Comment: Prior to first [employer] and then every 2 weeks.until results within normal limits. Collect weekly if baseline is abnormal. Performed By: #### L [id number] #### [facility] (DEFAULT) [address] [address] Immature Grans Absolute <0.04 Normal <=0.09 [facility] Comment on above: Order Comment: Prior to first [employer] and then every 2 weeks.until results within normal limits. Collect weekly if baseline is abnormal. Performed By: #### L AB980 #### [facility] (DEFAULT) [address] [address] Lymphocytes (Bld) [#/Vol] 2.87 10*3/uL Normal 1.16-3.51 [facility] Comment on above: Order Comment: Prior to first [employer] [facility] and then every 2 weeks.until results within normal limits. Collect weekly if baseline is abnormal. Performed By: #### L AB980 #### [facility] (DEFAULT) [address] [address] Lymphocytes/100 WBC (Bld) 29.1 % Normal [facility] Comment on above: Order Comment: Prior to first [employer] and then every 2 weeks.until results within normal limits. Collect weekly if baseline is abnormal. Performed By: #### L [id number] #### [facility] (DEFAULT) [address] [place] [address] MCV (RBC) [Entitic vol] 85.2 fL Normal 79.6-97.7 [facility] Comment on above: Order Comment: Prior to first [employer] [facility] and then every 2 weeks.until results within normal limits. Collect weekly if baseline is abnormal. Performed By: #### L [id number] #### [facility] (DEFAULT) [address] [address] Mean Cell Hgb 26.3 pg Normal 25.9-33.9 [facility] Comment on above: Order Comment: Prior to first [employer] and then every 2 weeks.until results within normal limits. Collect weekly if baseline is abnormal. Performed By: #### L [id number] #### [facility] (DEFAULT) [address] [address] Mean Cell Hgb Conc 30.8 g/dL Low 31.4-35.9 [facility] Comment on above: Order Comment: Prior to first [employer] and then every 2 weeks.until results within normal limits. Collect weekly if baseline is abnormal. Performed By: #### L [id number] #### [facility] (DEFAULT) [address] [address] Monocytes (Bld) [#/Vol] 0.37 10*3/uL Normal 0.22-0.87 [facility] Comment on above: Order Comment: Prior to first [employer] and then every 2 weeks.until results within normal limits. Collect weekly if baseline is abnormal. Performed By: #### L [id number] #### [facility] (DEFAULT) [address] [address] Monocytes/100 WBC (Bld) 3.7 % Normal [facility] Comment on above: Order Comment: Prior to first [employer] and then every 2 weeks.until results within normal limits. Collect weekly if baseline is abnormal. Performed By: #### L [id number] #### [facility] (DEFAULT) [address] [place] [address] Nucleated RBC 0.0 /100 WBC Normal <=0.2 [facility] Comment on above: Order Comment: Prior to first [employer] and then every 2 weeks.until results within normal limits. Collect weekly if baseline is abnormal. Performed By: #### L [id number] #### [facility] (DEFAULT) [address] [address] Platelet mean volume (Bld) [Entitic vol] 9.9 fL Normal 8.5-12.2 [facility] Comment on above: Order Comment: Prior to first [employer] and then every 2 weeks.until results within normal limits. Collect weekly if baseline is abnormal. Performed By: #### L [id number] #### [facility] (DEFAULT) [address] [address] Platelets (Bld) [#/Vol] 346 10*3/uL Normal 150-393 [facility] Comment on above: Order Comment: Prior to first [employer] and then every 2 weeks.until results within normal limits. Collect weekly if baseline is abnormal. Performed By: #### L [id number] #### [facility] (DEFAULT) [address] [address] RBC (Bld) [#/Vol] 3.92 10*6/uL Normal 3.91-5.04 [facility] Comment on above: Order Comment: Prior to first [employer] and then every 2 weeks.until results within normal limits. Collect weekly if baseline is abnormal. Performed By: #### L [id number] #### [facility] (DEFAULT) [address] [address] RBC Distribution 15.1 % High 10.8-14.9 [facility] Comment on above: Order Comment: Prior to first [employer] and then every 2 weeks.until results within normal limits. Collect weekly if baseline is abnormal. Performed By: #### L [id number] #### [facility] (DEFAULT) [address] [address] Segs + Bands Auto 64.3 % Normal [facility] Comment on above: Order Comment: Prior to first [employer] and then every 2 weeks.until results within normal limits. Collect weekly if baseline is abnormal. Performed By: #### L [id number] #### [facility] (DEFAULT) [address] [address] Segs + Bands,Absolute Auto 6.34 K/uL Normal 1.64-7.28 [facility] Comment on above: Order Comment: Prior to first [employer] and then every 2 weeks.until results within normal limits. Collect weekly if baseline is abnormal. Performed By: #### L [id number] #### [facility] (DEFAULT) [address] [address] WBC (Bld) [#/Vol] 9.87 10*3/uL Normal 3.99-11.19 [facility] Comment on above: Order Comment: Prior to first [employer] and then every 2 weeks.until results within normal limits. Collect weekly if baseline is abnormal. Performed By: #### L [id number] #### [facility] (DEFAULT) [address] [place] [address] Comprehensive metabolic 2000 panelon 04-06-2021 High Sensitivity Troponin I 9 ng/L Normal <14 [facility] Comment on above: Performed By: #### 2 4321-2 #### [facility] [address] [place] [address] Glucose Auto test strip (Bld ) [Mass/Vol]on 04-06-2021 Glucose [Mass/Vol] 219 mg/dL High 70-99 [facility] Comment on above: Performed By: #### 2 4321-2 #### [facility] [address] [place] [address] Glucose [Mass/Vol] 245 mg/dL High 70-99 [facility] Comment on above: Performed By: #### 2 4321-2 #### [facility] [address] [place] [address] Glucose [Mass/Vol] 176 mg/dL High 70-99 [facility] Comment on above: Performed By: #### 2 4321-2 #### [facility] [address] [place] [address] Glucose [Mass/Vol] 217 mg/dL High 70-99 [facility] Comment on above: Performed By: #### 2 340-8 #### [facility] [address] [place] [address] HbA1c HPLC (Bld) [Mass fract ion]on 04-06-2021 HbA1c (Bld) [Mass fraction] 11.8 % High <=5.6 [facility] Comment on above: Result Comment: HbA1 c values of 5.7-6.4 percent indicate an increased risk for developing diabetes mellitus. HbA1c values greater than or equal to 6.5 percent are diagnostic of diabetes mellitus. For diagnosis of diabetes in individuals without unequivocal hyperglycemia, results should be confirmed by repeat testing. Performed By: #### 2 4321-2 #### [facility] [address] [place] [address] Mean Bld Glu Estim. 292 mg/dL Normal [facility] Comment on above: Performed By: #### 2 4321-2 #### [facility] [address] [place] [address] Hemogram and platelets WO di fferential panel (Bld)on 04-06-2021 Basophils (Bld) [#/Vol] 0.00 10*3/uL Normal 0.00-0.20 [facility] Comment on above: Performed By: #### 2 4317-0 #### [facility] [address] [place] [address] Basophils/100 WBC (Bld) 0.4 % Normal 0.0-2.0 [facility] Comment on above: Performed By: #### 2 4317-0 #### [facility] [address] [place] [address] Eosinophils (Bld) [#/Vol] 0.30 10*3/uL Normal 0.00-0.70 [facility] Comment on above: Performed By: #### 2 4317-0 #### [facility] [address] [place] [address] Eosinophils/100 WBC (Bld) 3.5 % Normal 0.0-7.0 [facility] Comment on above: Performed By: #### 2 4317-0 #### [facility] [address] [place] [address] Erythrocyte distribution width (RBC) [Ratio] 15.3 % High 11.0-14.8 [facility] Comment on above: Performed By: #### 2 4317-0 #### [facility] [address] [place] [address] Hematocrit (Bld) [Volume fraction] 32.4 % Low 35.0-45.0 [facility] Comment on above: Performed By: #### 2 4317-0 #### [facility] [address] [place] [address] Hemoglobin (Bld) [Mass/Vol] 10.8 g/dL Low 12.0-16.0 [facility] Comment on above: Performed By: #### 2 4317-0 #### [facility] [address] [place] [address] Lymphocytes (Bld) [#/Vol] 3.10 10*3/uL Normal 1.00-4.80 [facility] Comment on above: Performed By: #### 2 4317-0 #### [facility] [address] [place] [address] Lymphocytes/100 WBC (Bld) 39.3 % Normal 22.0-44.0 [facility] Comment on above: Performed By: #### 2 4317-0 #### [facility] [address] [place] [address] MCH 27.2 pcg Normal 27.0-34.0 [facility] Comment on above: Performed By: #### 2 4317-0 #### [facility] [address] [place] [address] MCHC (RBC) [Mass/Vol] 33.4 g/dL Normal 32.0-36.[address] [place] [facility] Comment on above: Performed By: #### 2 4317-0 #### [facility] [address] [place] [address] MCV (RBC) [Entitic vol] 81.4 fL Normal 80.0-97.0 M [facility] Comment on above: Performed By: #### 2 4317-0 #### [facility] [address] [place] [address] Monocytes (Bld) [#/Vol] 0.50 10*3/uL Normal 0.00-0.90 [facility] Comment on above: Performed By: #### 2 4317-0 #### [facility] [address] [place] [address] Monocytes/100 WBC (Bld) 6.5 % Normal 0.0-12.0 M [facility] Comment on above: Performed By: #### 2 4317-0 #### [facility] [address] [place] [address] Neutrophils Absolute 4.00 K/mcL Normal 1.80-7.70 [facility] Comment on above: Performed By: #### 2 4317-0 #### [facility] [address] [place] [address] Neutrophils/100 WBC (Bld) 50.3 % Normal 40.0-70.0 [facility] Comment on above: Performed By: #### 2 4317-0 #### [facility] [address] [place] [address] Platelet mean volume (Bld) [Entitic vol] 6.6 fL Normal 6.2-12.1 [facility] Comment on above: Performed By: #### 2 4317-0 #### [facility] [address] [place] [address] Platelets (Bld) [#/Vol] 356 10*3/uL Normal 142-424 [facility] Comment on above: Performed By: #### 2 4317-0 #### [facility] [address] [place] [address] RBC (Bld) [#/Vol] 3.98 10*6/uL Normal 3.80-5.10 [facility] Comment on above: Performed By: #### 2 4317-0 #### [facility] [address] [place] [address] WBC (Bld) [#/Vol] 7.9 10*3/uL Normal 4.6-10.2 [facility] Comment on above: Performed By: #### 2 4317-0 #### [facility] [address] [place] [address] NM STRESS TEST WITH MYOCARDI AL PERFUSIONon [...] 71 109 78 161 85 1.0 67 57163.0 138 67 Normal [facility] Tropinin I.cardiac panel Hig h sensitivity methodon 04-06-2021 High Sensitivity Troponin I 9 ng/L Normal <14 [facility] Comment on above: Performed By: #### 8 9577-1 #### [facility] [address] [place] [address] Basic metabolic 2000 panelon 04-05-2021 High Sensitivity Troponin I 6 ng/L Normal <14 [facility] Comment on above: Performed By: #### 2 4321-2 #### [facility] [address] [place] [address] Hemogram and platelets WO di fferential panel (Bld)on 04-05-2021 Basophils (Bld) [#/Vol] 0.00 10*3/uL Normal 0.00-0.20 [facility] Comment on above: Performed By: #### 2 4317-0 #### [facility] [address] [place] [address] Basophils/100 WBC (Bld) 0.5 % Normal 0.0-2.0 [facility] Comment on above: Performed By: #### 2 4317-0 #### [facility] [address] [place] [address] Eosinophils (Bld) [#/Vol] 0.20 10*3/uL Normal 0.00-0.70 [facility] Comment on above: Performed By: #### 2 4317-0 #### [facility] [address] [place] [address] Eosinophils/100 WBC (Bld) 2.1 % Normal 0.0-7.0 [facility] Comment on above: Performed By: #### 2 4317-0 #### [facility] [address] [place] [address] Erythrocyte distribution width (RBC) [Ratio] 15.4 % High 11.0-14.8 [facility] Comment on above: Performed By: #### 2 4317-0 #### [facility] [address] [place] [address] Hematocrit (Bld) [Volume fraction] 33.6 % Low 35.0-45.0 [facility] Comment on above: Performed By: #### 2 4317-0 #### [facility] [address] [place] [address] Hemoglobin (Bld) [Mass/Vol] 11.1 g/dL Low 12.0-16.0 [facility] Comment on above: Performed By: #### 2 4317-0 #### [facility] [address] [place] [address] Lymphocytes (Bld) [#/Vol] 2.80 10*3/uL Normal 1.00-4.80 [facility] Comment on above: Performed By: #### 2 4317-0 #### [facility] [address] [place] [address] Lymphocytes/100 WBC (Bld) 28.2 % Normal 22.0-44.0 [facility] Comment on above: Performed By: #### 2 4317-0 #### [facility] [address] [place] [address] MCH 27.7 pcg Normal 27.0-34.0 [facility] Comment on above: Performed By: #### 2 4317-0 #### [facility] [address] [place] [address] MCHC (RBC) [Mass/Vol] 33.2 g/dL Normal 32.0-36.[address] [place] [facility] Comment on above: Performed By: #### 2 4317-0 #### [facility] [address] [place] [address] MCV (RBC) [Entitic vol] 83.2 fL Normal 80.0-97.0 M [facility] Comment on above: Performed By: #### 2 4317-0 #### [facility] [address] [place] [address] Monocytes (Bld) [#/Vol] 0.50 10*3/uL Normal 0.00-0.90 [facility] Comment on above: Performed By: #### 2 4317-0 #### [facility] [address] [place] [address] Monocytes/100 WBC (Bld) 5.2 % Normal 0.0-12.0 M [facility] Comment on above: Performed By: #### 2 4317-0 #### [facility] [address] [place] [address] Neutrophils Absolute 6.30 K/mcL Normal 1.80-7.70 [facility] Comment on above: Performed By: #### 2 4317-0 #### [facility] [address] [place] [address] Neutrophils/100 WBC (Bld) 64.0 % Normal 40.0-70.0 [facility] Comment on above: Performed By: #### 2 4317-0 #### [facility] [address] [place] [address] Platelet mean volume (Bld) [Entitic vol] 6.9 fL Normal 6.2-12.1 [facility] Comment on above: Performed By: #### 2 4317-0 #### [facility] [address] [place] [address] Platelets (Bld) [#/Vol] 386 10*3/uL Normal 142-424 [facility] Comment on above: Performed By: #### 2 4317-0 #### [facility] [address] [place] [address] RBC (Bld) [#/Vol] 4.03 10*6/uL Normal 3.80-5.10 [facility] Comment on above: Performed By: #### 2 4317-0 #### [facility] [address] [place] [address] WBC (Bld) [#/Vol] 9.8 10*3/uL Normal 4.6-10.2 [facility] Comment on above: Performed By: #### 2 4317-0 #### [facility] [address] [place] [address] Natriuretic peptide B [Mass/ Vol]on 04-05-2021 BNP 44 pcg/mL Normal 0-100 [facility] Comment on above: Result Comment: <100 : CHF is unlikely 100-400: Possible left ventricular dysfunction-unlikely acute decompensation >400: Suspicious for decompensated heart failure Performed By: #### 3 0934-4 #### [facility] [address] [place] [address] SARS-CoV-2 RNA Resp Ql CAL+p robeon 04-05-2021 SARS-CoV-2 (COVID-19) RNA CAL+probe Ql (Resp) Not detected Normal Not Detected [facility] Comment on above: Performed By: #### 9 4500-6 #### [facility] [address] [place] [address] TRANSTHORACIC ECHOCARDIOGRAM (TTE) COMPLETE (CONTRAST/BUBBLE/3D PRN)on 04-05-2021 [...] 36 27 1.1 30 10 1.68 Normal [facility] Tropinin I.cardiac panel Hig h sensitivity methodon 04-05-2021 High Sensitivity Troponin I 12 ng/L Normal <14 [facility] Comment on above: Performed By: #### 8 9577-1 #### [facility] [address] [place] [address] Urinalysis dipstick W Reflex Culture panel (U)on 04-05-2021 Bilirubin, Urine Negative Normal Negative [facility] Comment on above: Performed By: #### 5 7019-2 #### [facility] [address] [place] [address] Blood, Urine Negative Normal Negative [facility] Comment on above: Performed By: #### 5 7019-2 #### [facility] [address] [place] [address] Clarity (U) Clear Normal Clear [facility] Comment on above: Performed By: #### 5 7019-2 #### [facility] [address] [place] [address] Color (U) Straw Abnormal Yellow [facility] Comment on above: Performed By: #### 5 7019-2 #### [facility] [address] [place] [address] Glucose Ql (U) >=500 Abnormal Normal [facility] Comment on above: Performed By: #### 5 7019-2 #### [facility] [address] [place] [address] Ketones Ql (U) Negative Normal Negative [facility] Comment on above: Performed By: #### 5 7019-2 #### [facility] [address] [place] [address] Leukocytes, Urine Negative Normal Negative [facility] Comment on above: Performed By: #### 5 7019-2 #### [facility] [address] [place] [address] Nitrite, Urine Negative Normal Negative [facility] Comment on above: Performed By: #### 5 7019-2 #### [facility] [address] [place] [address] pH (U) 7.0 [pH] Normal 5.0-8.0 [facility] Comment on above: Performed By: #### 5 7019-2 #### [facility] [address] [place] [address] Protein, Urine Negative Normal Negative [facility] Comment on above: Performed By: #### 5 7019-2 #### [facility] [address] [place] [address] Specific [place] Urine 1.014 Normal 1.002-1.030 M [facility] Comment on above: Performed By: #### 5 7019-2 #### [facility] [address] [place] [address] Urobilinogen, Urine Normal Normal Normal [facility] Comment on above: Performed By: #### 5 7019-2 #### [facility] [address] [place] [address] XR CHEST 1 VIEWon 04-05-2021 XR CHEST [...] Self Edit Transcribed Date: 04/05/2021 14:59 Normal [facility] XR HAND LEFT 3+ VIEWSon XR HAND [...] the second, third and fourth fingers. Normal [facility] CBC(NO DIFF)on 03-15-2021 Erythrocyte distribution width (RBC) [Ratio] 15.2 % High 11.5-14.5 [facility] Comment on above: Performed By: #### H EMOG, CMPF, LIP2, RTSH, T42 #### [place] [address] Hematocrit (Bld) [Volume fraction] 34.3 % Low 36.0-48.0 [facility] Comment on above: Performed By: #### H EMOG, CMPF, LIP2, RTSH, T42 #### [place] [address] Hemoglobin (Bld) [Mass/Vol] 11.1 g/dL Low 12.0-16.0 [facility] Comment on above: Performed By: #### H EMOG, CMPF, LIP2, RTSH, T42 #### Testing performed at [place] [id number] MCH (RBC) [Entitic mass] 27.0 pg Normal 26.0-35.0 [facility] Comment on above: Performed By: #### H EMOG, CMPF, LIP2, RTSH, T42 #### Testing performed at [place] [id number] MCHC (RBC) [Mass/Vol] 32.4 g/dL Normal 27.0-37.0 [facility] Comment on above: Performed By: #### H EMOG, CMPF, LIP2, RTSH, T42 #### Testing performed at [place] [id number] MCV (RBC) [Entitic vol] 83.4 fL Normal 80.0-100.0 [facility] Comment on above: Performed By: #### H EMOG, CMPF, LIP2, RTSH, T42 #### [place] [address] Platelet mean volume (Bld) [Entitic vol] 7.1 fL Low 7.4-11.0 [facility] Comment on above: Result Comment: Test ing performed at [place] [address] Performed By: #### H EMOG, CMPF, LIP2, RTSH, T42 #### [place] [address] Platelets (Bld) [#/Vol] 339 10*3/uL Normal 130.0-400.0 [facility] Comment on above: Performed By: #### H EMOG, CMPF, LIP2, RTSH, T42 #### [place] [address] RBC (Bld) [#/Vol] 4.11 10*6/uL Normal 4.0-5.4 [facility] Comment on above: Performed By: #### H EMOG, CMPF, LIP2, RTSH, T42 #### [place] [address] WBC (Bld) [#/Vol] 6.8 10*3/uL Normal 3.6-11.0 [facility] Comment on above: Performed By: #### H EMOG, CMPF, LIP2, RTSH, T42 #### [place] [address] CMP FASTINGon 03-15-2021 A:G RATIO 1.1 RATIO Low 1.3-2.2 [facility] Comment on above: Performed By: #### H EMOG, CMPF, LIP2, RTSH, T42 #### [place] [address] ALBUMIN 3.9 G/dl Normal 3.5-5.0 [facility] Comment on above: Performed By: #### H EMOG, CMPF, LIP2, RTSH, T42 #### Testing performed at [place] [id number] ALP [Catalytic activity/Vol] 113 U/L Normal 38-126 [facility] Comment on above: Performed By: #### H EMOG, CMPF, LIP2, RTSH, T42 #### Testing performed at [place] [id number] ALT [Catalytic activity/Vol] 14 U/L Normal <35 [facility] Comment on above: Performed By: #### H EMOG, CMPF, LIP2, RTSH, T42 #### Testing performed at [place] [id number] AST [Catalytic activity/Vol] 19 U/L Normal 14-36 [facility] Comment on above: Performed By: #### H EMOG, CMPF, LIP2, RTSH, T42 #### [place] [address] Bilirubin [Mass/Vol] 0.4 mg/dL Normal 0.2-1.3 [facility] Comment on above: Performed By: #### H EMOG, CMPF, LIP2, RTSH, T42 #### [place] [address] Calcium [Mass/Vol] 9.6 mg/dL Normal 8.4-10.2 [facility] Comment on above: Performed By: #### H EMOG, CMPF, LIP2, RTSH, T42 #### Testing performed at [place] [id number] Chloride [Moles/Vol] 105 mmol/L Normal 98-107 [facility] Comment on above: Result Comment: Vasyl hickman note: Triglyceride levels of 600mg/dL or higher may positively bias chloride results by approximately 2.1 mmol Performed By: #### H EMOG, CMPF, LIP2, RTSH, T42 #### Testing performed at [place] [id number] CO2 [Moles/Vol] 24 mmol/L Normal 22-30 [facility] Comment on above: Performed By: #### H EMOG, CMPF, LIP2, RTSH, T42 #### [place] [address] Creatinine [Mass/Vol] 1.20 mg/dL Normal 0.7-1.2 [facility] Comment on above: Performed By: #### H EMOG, CMPF, LIP2, RTSH, T42 #### [place] [address] EST. GFR, 59 ml/min/1.73sq.m [facility] Comment on above: Performed By: #### H EMOG, CMPF, LIP2, RTSH, T42 #### [place] [address] EST. GFR,Non 49 ml/min/1.73sq.m [facility] Comment on above: Performed By: #### H EMOG, CMPF, LIP2, RTSH, T42 #### [place] [address] GFR Information Average GFR for 50-5 9 years old = 93. 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 Kidney failure, GFR = <15. The GFR estimate is not adjusted for extreme body surface area or acute process, nor has it been validated for women or ethnic groups other than and . Testing performed at [place] [address] Performed By: #### H EMOG, CMPF, LIP2, RTSH, T42 #### [place] [address] Glucose [Mass/Vol] 222 mg/dL High 70-100 [facility] Comment on above: Result Comment: NORMAL <100 mg/dL PREDIABETES 101-126 mg/dL DIABETES 126 mg/dL or higher Performed By: #### H EMOG, CMPF, LIP2, RTSH, T42 #### [place] [address] Potassium [Moles/Vol] 4.5 mmol/L Normal 3.5-5.1 [facility] Comment on above: Performed By: #### H EMOG, CMPF, LIP2, RTSH, T42 #### Testing performed at [place] [id number] Protein [Mass/Vol] 7.3 g/dL Normal 6.3-8.2 [facility] Comment on above: Performed By: #### H EMOG, CMPF, LIP2, RTSH, T42 #### Testing performed at [place] [id number] Sodium [Moles/Vol] 139 mmol/L Normal 137-145 [facility] Comment on above: Performed By: #### H EMOG, CMPF, LIP2, RTSH, T42 #### Testing performed at [place] [id number] Urea nitrogen [Mass/Vol] 26 mg/dL High 7-20 [facility] Comment on above: Performed By: #### H EMOG, CMPF, LIP2, RTSH, T42 #### Testing performed at [place] [id number] FREE T4on 03-15-2021 Free T4 [Mass/Vol] 1.07 ng/dL Normal 0.78-2.19 [facility] Comment on above: Result Comment: Test ing performed at [place] [address] Performed By: #### H EMOG, CMPF, LIP2, RTSH, T42 #### Testing performed at [place] [id number] HEMOGLOBIN A1Con 03-15-2021 Glucose [Mass/Vol] 289 mg/dL Normal [facility] HbA1c (Bld) [Mass fraction] 11.7 % High 0-6 [facility] Comment on above: Result Comment: NORMAL <5.7% PREDIABETES 5.7-6.4% DIABETES 6.5% OR HIGHER LIPID PROFILEon 03-15-2021 Cholesterol [Mass/Vol] 226 mg/dL High 107-217 [facility] Comment on above: Performed By: #### H EMOG, CMPF, LIP2, RTSH, T42 #### Testing performed at [address] [address] Cholesterol in HDL [Mass/Vol] 48 mg/dL Normal 33-75 [facility] Comment on above: Performed By: #### H EMOG, CMPF, LIP2, RTSH, T42 #### Testing performed at [address] [address] Cholesterol in LDL [Mass/Vol] 143 mg/dL Normal [facility] Comment on above: Performed By: #### H EMOG, CMPF, LIP2, RTSH, T42 #### Testing performed at [address] [address] Cholesterol in VLDL [Mass/Vol] 35 mg/dL High 5.0-25 [facility] Comment on above: Performed By: #### H EMOG, CMPF, LIP2, RTSH, T42 #### Testing performed at [address] [address] Cholesterol.total/Erika sterol in HDL [Mass ratio] 4.71 {ratio} Normal [facility] Comment on above: Result Comment: RISK TOTAL/HDL RATIO MEN WOMEN 1/2 AVERAGE 3.43 3.27 AVERAGE 4.97 4.44 2X AVERAGE 9.55 7.05 3X AVERAGE 23.99 11.04 Testing performed at [place], [place] [address] Performed By: #### H EMOG, CMPF, LIP2, RTSH, T42 #### Testing performed at [address] [address] Triglyceride [Mass/Vol] 174 mg/dL High 0-150 [facility] Comment on above: Performed By: #### H EMOG, CMPF, LIP2, RTSH, T42 #### Testing performed at [address] [address] MALB/CREAT RATIO,URINEon MALB/CREAT RATIO,URINE 126.2 mg MALB/g CREAT High 1. 3-30.0 [facility] Comment on above: Result Comment: Test ing performed at [place] [address] Performed By: #### M CRAT #### [place] [address] MICROALBUMIN,RANDOM URINE 133.1 mg/L High 0-16.7 [facility] Comment on above: Performed By: #### M CRAT #### [place] [address] URINE CREATININE RANDOM 105.5 MG/DL Normal [facility] Comment on above: Result Comment: NO N ORMAL VALUES ESTABLISHED FOR RANDOM SPECIMENS Performed By: #### M CRAT #### [place] [address] TSH,REFLEX FREE T4on 022 TSH,REFLEX FREE T4 7.180 uIU/ML High 0.46-4.68 [facility] Comment on above: Result Comment: Test ing performed at [place] [address] Performed By: #### H EMOG, CMPF, LIP2, RTSH, T42 #### [place] [address] BUN CREAon 03-07-2021 Creatinine [Mass/Vol] 1.16 mg/dL Normal 0.50-1.20 [facility] Comment on above: Order Comment: Prior to first [facility] and every 2 weeks if baseline CR is within normal limits. Performed By: #### B CR #### [facility] (DEFAULT) [address] [address] EST GFR, 58 mL/min/1.73sqM Low >=60 [facility] Comment on above: Order Comment: Prior to first [facility] Infusion and every 2 weeks if baseline CR is within normal limits. Performed By: #### B CR #### [facility] (DEFAULT) [address] [address] EST GFR,Non 48 mL/min/1.73sqM Low >=60 [facility] Comment on above: Order Comment: Prior to first [facility] Infusion and every 2 weeks if baseline CR is within normal limits. Performed By: #### B CR #### [facility] (DEFAULT) [address] [address] Urea nitrogen [Mass/Vol] 19 mg/dL Normal 7-25 [facility] Comment on above: Order Comment: Prior to first [facility] Infusion and every 2 weeks if baseline CR is within normal limits. Performed By: #### B CR #### [facility] [address] [address] Urea nitrogen/Creatinine [Mass ratio] 16 mg/mg Normal [facility] Comment on above: Order Comment: Prior to first [facility] Infusion and every 2 weeks if baseline CR is within normal limits. Performed By: #### B CR #### [facility] (DEFAULT) [address] [address] CBC AND ELECTRONIC DIFFon Basophils (Bld) [#/Vol] 10*3/uL Normal 0.00-0.15 [facility] Comment on above: Order Comment: Prior to first [facility] Infusion and every 2 weeks if baseline CR is within normal limits. Performed By: #### B CR #### [facility] (DEFAULT) [address] [address] Basophils/100 WBC (Bld) 0.2 % Normal [facility] Comment on above: Order Comment: Prior to first [facility] Infusion and every 2 weeks if baseline CR is within normal limits. Performed By: #### B CR #### [facility] (DEFAULT) [address] [address] DIFF STATUS Electronic Differential Normal [facility] Comment on above: Order Comment: Prior to first [facility] Infusion and every 2 weeks if baseline CR is within normal limits. Performed By: #### B CR #### [facility] (DEFAULT) [address] [address] Eosinophils (Bld) [#/Vol] 0.21 10*3/uL Normal 0.00-0.42 [facility] Comment on above: Order Comment: Prior to first [facility] Infusion and every 2 weeks if baseline CR is within normal limits. Performed By: #### B CR #### [facility] (DEFAULT) [address] [place] [address] Eosinophils/100 WBC (Bld) 2.3 % Normal [facility] Comment on above: Order Comment: Prior to first [facility] Infusion and every 2 weeks if baseline CR is within normal limits. Performed By: #### B CR #### [facility] (DEFAULT) [address] [place] [address] Hematocrit (Bld) [Volume fraction] 32.6 % Low 34.9-44.3 [facility] Comment on above: Order Comment: Prior to first [facility] Infusion and every 2 weeks if baseline CR is within normal limits. Performed By: #### B CR #### [facility] (DEFAULT) [address] [place] [address] Hemoglobin (Bld) [Mass/Vol] 10.2 g/dL Low 11.4-15.2 [facility] Comment on above: Order Comment: Prior to first [facility] Infusion and every 2 weeks if baseline CR is within normal limits. Performed By: #### B CR #### [facility] (DEFAULT) [address] [place] [address] Immature Grans % 0.2 % Normal [facility] Comment on above: Order Comment: Prior to first [facility] Infusion and every 2 weeks if baseline CR is within normal limits. Performed By: #### B CR #### [facility] (DEFAULT) [address] [place] [address] Immature Grans Absolute <0.04 Normal <=0.09 [facility] Comment on above: Order Comment: Prior to first [facility] Infusion and every 2 weeks if baseline CR is within normal limits. Performed By: #### B CR #### [facility] (DEFAULT) [address] [place] [address] Lymphocytes (Bld) [#/Vol] 2.26 10*3/uL Normal 1.16-3.51 [facility] Comment on above: Order Comment: Prior to first [facility] Infusion and every 2 weeks if baseline CR is within normal limits. Performed By: #### B CR #### [facility] (DEFAULT) [address] [address] Lymphocytes/100 WBC (Bld) 25.3 % Normal [facility] Comment on above: Order Comment: Prior to first [facility] Infusion and every 2 weeks if baseline CR is within normal limits. Performed By: #### B CR #### [facility] (DEFAULT) [address] [address] MCV (RBC) [Entitic vol] 86.2 fL Normal 79.6-97.7 [facility] Comment on above: Order Comment: Prior to first [facility] Infusion and every 2 weeks if baseline CR is within normal limits. Performed By: #### B CR #### [facility] (DEFAULT) [address] [address] Mean Cell Hgb 27.0 pg Normal 25.9-33.9 [facility] Comment on above: Order Comment: Prior to first [facility] Infusion and every 2 weeks if baseline CR is within normal limits. Performed By: #### B CR #### [facility] (DEFAULT) [address] [address] Mean Cell Hgb Conc 31.3 g/dL Low 31.4-35.9 [facility] Comment on above: Order Comment: Prior to first [facility] Infusion and every 2 weeks if baseline CR is within normal limits. Performed By: #### B CR #### [facility] (DEFAULT) [address] [address] Monocytes (Bld) [#/Vol] 0.44 10*3/uL Normal 0.22-0.87 [facility] Comment on above: Order Comment: Prior to first [facility] Infusion and every 2 weeks if baseline CR is within normal limits. Performed By: #### B CR #### [facility] (DEFAULT) [address] [address] Monocytes/100 WBC (Bld) 4.9 % Normal [facility] Comment on above: Order Comment: Prior to first [facility] Infusion and every 2 weeks if baseline CR is within normal limits. Performed By: #### B CR #### [facility] (DEFAULT) [address] [address] Nucleated RBC 0.0 /100 WBC Normal <=0.2 [facility] Comment on above: Order Comment: Prior to first [facility] Infusion and every 2 weeks if baseline CR is within normal limits. Performed By: #### B CR #### [facility] (DEFAULT) [address] [address] Platelet mean volume (Bld) [Entitic vol] 9.7 fL Normal 8.5-12.2 [facility] Comment on above: Order Comment: Prior to first [facility] Infusion and every 2 weeks if baseline CR is within normal limits. Performed By: #### B CR #### [facility] (DEFAULT) [address] [address] Platelets (Bld) [#/Vol] 350 10*3/uL Normal 150-393 [facility] Comment on above: Order Comment: Prior to first [facility] Infusion and every 2 weeks if baseline CR is within normal limits. Performed By: #### B CR #### [facility] (DEFAULT) [address] [address] RBC (Bld) [#/Vol] 3.78 10*6/uL Low 3.91-5.04 [facility] Comment on above: Order Comment: Prior to first [facility] Infusion and every 2 weeks if baseline CR is within normal limits. Performed By: #### B CR #### [facility] (DEFAULT) [address] [address] RBC Distribution 14.6 % Normal 10.8-14.9 [facility] Comment on above: Order Comment: Prior to first [facility] Infusion and every 2 weeks if baseline CR is within normal limits. Performed By: #### B CR #### [facility] (DEFAULT) [address] [address] Segs + Bands Auto 67.1 % Normal [facility] Comment on above: Order Comment: Prior to first [facility] Infusion and every 2 weeks if baseline CR is within normal limits. Performed By: #### B CR #### [facility] (DEFAULT) [address] [address] Segs + Bands,Absolute Auto 5.99 K/uL Normal 1.64-7.28 [facility] Comment on above: Order Comment: Prior to first [facility] Infusion and every 2 weeks if baseline CR is within normal limits. Performed By: #### B CR #### [facility] (DEFAULT) [address] [address] WBC (Bld) [#/Vol] 8.94 10*3/uL Normal 3.99-11.19 [facility] Comment on above: Order Comment: Prior to first [facility] Infusion and every 2 weeks if baseline CR is within normal limits. Performed By: #### B CR #### [facility] (DEFAULT) [address] [address] BUN CREAon 02-21-2021 Creatinine [Mass/Vol] 1.19 mg/dL Normal 0.50-1.20 [facility] Comment on above: Order Comment: Prior to first [facility] Infusion and every 2 weeks if baseline CR is within normal limits. Performed By: #### B CR #### [facility] (DEFAULT) [address] [address] EST GFR, 56 mL/min/1.73sqM Low >=60 [facility] Comment on above: Order Comment: Prior to first [facility] Infusion and every 2 weeks if baseline CR is within normal limits. Performed By: #### B CR #### [facility] (DEFAULT) [address] [address] EST GFR,Non 47 mL/min/1.73sqM Low >=60 [facility] Comment on above: Order Comment: Prior to first [facility] Infusion and every 2 weeks if baseline CR is within normal limits. Performed By: #### B CR #### [facility] (DEFAULT) [address] [address] Urea nitrogen [Mass/Vol] 28 mg/dL High 7-25 [facility] Comment on above: Order Comment: Prior to first [facility] Infusion and every 2 weeks if baseline CR is within normal limits. Performed By: #### B CR #### [facility] (DEFAULT) [address] [address] Urea nitrogen/Creatinine [Mass ratio] 24 mg/mg Normal [facility] Comment on above: Order Comment: Prior to first [facility] Infusion and every 2 weeks if baseline CR is within normal limits. Performed By: #### B CR #### [facility] (DEFAULT) [address] [address] CBC AND ELECTRONIC DIFFon Basophils (Bld) [#/Vol] 0.05 10*3/uL Normal 0.00-0.15 [facility] Comment on above: Order Comment: Prior to first [facility] Infusion and every 2 weeks if baseline CR is within normal limits. Performed By: #### B CR #### [facility] (DEFAULT) [address] [address] Basophils/100 WBC (Bld) 0.6 % Normal [facility] Comment on above: Order Comment: Prior to first [facility] Infusion and every 2 weeks if baseline CR is within normal limits. Performed By: #### B CR #### [facility] (DEFAULT) [address] [address] DIFF STATUS Electronic Differential Normal [facility] Comment on above: Order Comment: Prior to first [facility] Infusion and every 2 weeks if baseline CR is within normal limits. Performed By: #### B CR #### [facility] (DEFAULT) [address] [address] Eosinophils (Bld) [#/Vol] 0.16 10*3/uL Normal 0.00-0.42 [facility] Comment on above: Order Comment: Prior to first [facility] Infusion and every 2 weeks if baseline CR is within normal limits. Performed By: #### B CR #### [facility] (DEFAULT) [address] [address] Eosinophils/100 WBC (Bld) 1.8 % Normal [facility] Comment on above: Order Comment: Prior to first [facility] Infusion and every 2 weeks if baseline CR is within normal limits. Performed By: #### B CR #### [facility] (DEFAULT) [address] [address] Hematocrit (Bld) [Volume fraction] 34.7 % Low 34.9-44.3 [facility] Comment on above: Order Comment: Prior to first [facility] Infusion and every 2 weeks if baseline CR is within normal limits. Performed By: #### B CR #### [facility] (DEFAULT) [address] [place] [address] Hemoglobin (Bld) [Mass/Vol] 11.0 g/dL Low 11.4-15.2 [facility] Comment on above: Order Comment: Prior to first [facility] Infusion and every 2 weeks if baseline CR is within normal limits. Performed By: #### B CR #### [facility] (DEFAULT) [address] [address] Immature Grans % 0.1 % Normal [facility] Comment on above: Order Comment: Prior to first [facility] Infusion and every 2 weeks if baseline CR is within normal limits. Performed By: #### B CR #### [facility] (DEFAULT) [address] [address] Immature Grans Absolute <0.04 Normal <=0.09 [facility] Comment on above: Order Comment: Prior to first [facility] Infusion and every 2 weeks if baseline CR is within normal limits. Performed By: #### B CR #### [facility] (DEFAULT) [address] [address] Lymphocytes (Bld) [#/Vol] 2.61 10*3/uL Normal 1.16-3.51 [facility] Comment on above: Order Comment: Prior to first [facility] Infusion and every 2 weeks if baseline CR is within normal limits. Performed By: #### B CR #### [facility] (DEFAULT) [address] [address] Lymphocytes/100 WBC (Bld) 29.4 % Normal [facility] Comment on above: Order Comment: Prior to first [facility] Infusion and every 2 weeks if baseline CR is within normal limits. Performed By: #### B CR #### [facility] (DEFAULT) [address] [address] MCV (RBC) [Entitic vol] 85.5 fL Normal 79.6-97.7 [facility] Comment on above: Order Comment: Prior to first [facility] Infusion and every 2 weeks if baseline CR is within normal limits. Performed By: #### B CR #### [facility] (DEFAULT) [address] [address] Mean Cell Hgb 27.1 pg Normal 25.9-33.9 [facility] Comment on above: Order Comment: Prior to first [facility] Infusion and every 2 weeks if baseline CR is within normal limits. Performed By: #### B CR #### [facility] (DEFAULT) [address] [address] Mean Cell Hgb Conc 31.7 g/dL Normal 31.4-35.9 [facility] Comment on above: Order Comment: Prior to first [facility] Infusion and every 2 weeks if baseline CR is within normal limits. Performed By: #### B CR #### [facility] (DEFAULT) [address] [address] Monocytes (Bld) [#/Vol] 0.39 10*3/uL Normal 0.22-0.87 [facility] Comment on above: Order Comment: Prior to first [facility] Infusion and every 2 weeks if baseline CR is within normal limits. Performed By: #### B CR #### [facility] (DEFAULT) [address] [address] Monocytes/100 WBC (Bld) 4.4 % Normal [facility] Comment on above: Order Comment: Prior to first [facility] Infusion and every 2 weeks if baseline CR is within normal limits. Performed By: #### B CR #### [facility] (DEFAULT) [address] [place] [address] Nucleated RBC 0.0 /100 WBC Normal <=0.2 [facility] Comment on above: Order Comment: Prior to first [facility] Infusion and every 2 weeks if baseline CR is within normal limits. Performed By: #### B CR #### [facility] (DEFAULT) [address] [address] Platelet mean volume (Bld) [Entitic vol] 9.7 fL Normal 8.5-12.2 [facility] Comment on above: Order Comment: Prior to first [facility] Infusion and every 2 weeks if baseline CR is within normal limits. Performed By: #### B CR #### [facility] (DEFAULT) [address] [place] [address] Platelets (Bld) [#/Vol] 383 10*3/uL Normal 150-393 [facility] Comment on above: Order Comment: Prior to first [facility] Infusion and every 2 weeks if baseline CR is within normal limits. Performed By: #### B CR #### [facility] (DEFAULT) [address] [place] [address] RBC (Bld) [#/Vol] 4.06 10*6/uL Normal 3.91-5.04 [facility] Comment on above: Order Comment: Prior to first [facility] Infusion and every 2 weeks if baseline CR is within normal limits. Performed By: #### B CR #### [facility] (DEFAULT) [address] [place] [address] RBC Distribution 14.5 % Normal 10.8-14.9 [facility] Comment on above: Order Comment: Prior to first [facility] Infusion and every 2 weeks if baseline CR is within normal limits. Performed By: #### B CR #### [facility] (DEFAULT) [address] [address] Segs + Bands Auto 63.7 % Normal [facility] Comment on above: Order Comment: Prior to first [facility] Infusion and every 2 weeks if baseline CR is within normal limits. Performed By: #### B CR #### [facility] (DEFAULT) [address] [address] Segs + Bands,Absolute Auto 5.66 K/uL Normal 1.64-7.28 [facility] Comment on above: Order Comment: Prior to first [facility] Infusion and every 2 weeks if baseline CR is within normal limits. Performed By: #### B CR #### [facility] (DEFAULT) [address] [place] [address] WBC (Bld) [#/Vol] 8.88 10*3/uL Normal 3.99-11.19 [facility] Comment on above: Order Comment: Prior to first [facility] Infusion and every 2 weeks if baseline CR is within normal limits. Performed By: #### B CR #### [facility] (DEFAULT) [address] [address] OCT/HRT MACULA OUon 02-15-20 21 OCT/HRT MAC[place] OU Right Eye Quality was good. Findings include subretinal fluid. Interval change is better. Recommendation for management is to continue treatment. Left Eye Quality was good. Findings include subretinal fluid. Interval change is better. Recommendation for management is to continue treatment. Normal [facility] BUN CREAon 02-07-2021 Creatinine [Mass/Vol] 1.20 mg/dL Normal 0.50-1.20 [facility] Comment on above: Order Comment: Prior to first [facility] Infusion and every 2 weeks if baseline CR is within normal limits. Performed By: #### B CR #### [facility] (DEFAULT) [address] [address] EST GFR, 56 mL/min/1.73sqM Low >=60 [facility] Comment on above: Order Comment: Prior to first [facility] Infusion and every 2 weeks if baseline CR is within normal limits. Performed By: #### B CR #### [facility] (DEFAULT) [address] [place] [address] EST GFR,Non 46 mL/min/1.73sqM Low >=60 [facility] Comment on above: Order Comment: Prior to first [facility] Infusion and every 2 weeks if baseline CR is within normal limits. Performed By: #### B CR #### [facility] (DEFAULT) [address] [address] Urea nitrogen [Mass/Vol] 21 mg/dL Normal 09-07 [facility] Comment on above: Order Comment: Prior to first [facility] Infusion and every 2 weeks if baseline CR is within normal limits. Performed By: #### B CR #### [facility] (DEFAULT) [address] [address] Urea nitrogen/Creatinine [Mass ratio] 18 mg/mg Normal [facility] Comment on above: Order Comment: Prior to first [facility] Infusion and every 2 weeks if baseline CR is within normal limits. Performed By: #### B CR #### [facility] (DEFAULT) [address] [place] [address] CBC AND ELECTRONIC DIFFon Basophils (Bld) [#/Vol] 0.05 10*3/uL Normal 0.00-0.15 [facility] Comment on above: Order Comment: Prior to first [facility] Infusion and then every 2 weeks.until results within normal limits. Collect weekly if baseline is abnormal. Performed By: #### L [id number] #### [facility] (DEFAULT) [address] [place] [address] Basophils/100 WBC (Bld) 0.5 % Normal [facility] Comment on above: Order Comment: Prior to first [facility] Infusion and then every 2 weeks.until results within normal limits. Collect weekly if baseline is abnormal. Performed By: #### L [id number] #### [facility] (DEFAULT) [address] [address] DIFF STATUS Electronic Differential Normal [facility] Comment on above: Order Comment: Prior to first [facility] Infusion and then every 2 weeks.until results within normal limits. Collect weekly if baseline is abnormal. Performed By: #### L [id number] #### [facility] (DEFAULT) [address] [address] Eosinophils (Bld) [#/Vol] 0.31 10*3/uL Normal 0.00-0.42 [facility] Comment on above: Order Comment: Prior to first [facility] Infusion and then every 2 weeks.until results within normal limits. Collect weekly if baseline is abnormal. Performed By: #### L [id number] #### [facility] (DEFAULT) [address] [address] Eosinophils/100 WBC (Bld) 3.3 % Normal [facility] Comment on above: Order Comment: Prior to first [facility] Infusion and then every 2 weeks.until results within normal limits. Collect weekly if baseline is abnormal. Performed By: #### L [id number] #### [facility] (DEFAULT) [address] [address] Hematocrit (Bld) [Volume fraction] 33.5 % Low 34.9-44.3 [facility] Comment on above: Order Comment: Prior to first [facility] Infusion and then every 2 weeks.until results within normal limits. Collect weekly if baseline is abnormal. Performed By: #### L [id number] #### [facility] (DEFAULT) [address] [address] Hemoglobin (Bld) [Mass/Vol] 10.5 g/dL Low 11.4-15.2 [facility] Comment on above: Order Comment: Prior to first [facility] Infusion and then every 2 weeks.until results within normal limits. Collect weekly if baseline is abnormal. Performed By: #### L [id number] #### [facility] (DEFAULT) [address] [address] Immature Grans % 0.2 % Normal [facility] Comment on above: Order Comment: Prior to first [facility] Infusion and then every 2 weeks.until results within normal limits. Collect weekly if baseline is abnormal. Performed By: #### L [id number] #### [facility] (DEFAULT) [address] [address] Immature Grans Absolute <0.04 Normal <=0.09 [facility] Comment on above: Order Comment: Prior to first [facility] Infusion and then every 2 weeks.until results within normal limits. Collect weekly if baseline is abnormal. Performed By: #### L [id number] #### [facility] (DEFAULT) [address] [address] Lymphocytes (Bld) [#/Vol] 2.84 10*3/uL Normal 1.16-3.51 [facility] Comment on above: Order Comment: Prior to first [facility] Infusion and then every 2 weeks.until results within normal limits. Collect weekly if baseline is abnormal. Performed By: #### L [id number] #### [facility] (DEFAULT) [address] [place] [address] Lymphocytes/100 WBC (Bld) 30.6 % Normal [facility] Comment on above: Order Comment: Prior to first [facility] Infusion and then every 2 weeks.until results within normal limits. Collect weekly if baseline is abnormal. Performed By: #### L [id number] #### [facility] (DEFAULT) [address] [address] MCV (RBC) [Entitic vol] 85.7 fL Normal 79.6-97.7 [facility] Comment on above: Order Comment: Prior to first [facility] Infusion and then every 2 weeks.until results within normal limits. Collect weekly if baseline is abnormal. Performed By: #### L [id number] #### [facility] (DEFAULT) [address] [address] Mean Cell Hgb 26.9 pg Normal 25.9-33.9 [facility] Comment on above: Order Comment: Prior to first [employer] Infusion and then every 2 weeks.until results within normal limits. Collect weekly if baseline is abnormal. Performed By: #### L [id number] #### [facility] (DEFAULT) [address] [address] Mean Cell Hgb Conc 31.3 g/dL Low 31.4-35.9 [facility] Comment on above: Order Comment: Prior to first [facility] Infusion and then every 2 weeks.until results within normal limits. Collect weekly if baseline is abnormal. Performed By: #### L [id number] #### [facility] (DEFAULT) [address] [address] Monocytes (Bld) [#/Vol] 0.42 10*3/uL Normal 0.22-0.87 [facility] Comment on above: Order Comment: Prior to first [facility] Infusion and then every 2 weeks.until results within normal limits. Collect weekly if baseline is abnormal. Performed By: #### L [id number] #### [facility] (DEFAULT) [address] [address] Monocytes/100 WBC (Bld) 4.5 % Normal [facility] Comment on above: Order Comment: Prior to first [facility] Infusion and then every 2 weeks.until results within normal limits. Collect weekly if baseline is abnormal. Performed By: #### L [id number] #### [facility] (DEFAULT) [address] [address] Nucleated RBC 0.0 /100 WBC Normal <=0.2 [facility] Comment on above: Order Comment: Prior to first [facility] Infusion and then every 2 weeks.until results within normal limits. Collect weekly if baseline is abnormal. Performed By: #### L [id number] #### [facility] (DEFAULT) [address] [address] Platelet mean volume (Bld) [Entitic vol] 9.3 fL Normal 8.5-12.2 [facility] Comment on above: Order Comment: Prior to first [facility] Infusion and then every 2 weeks.until results within normal limits. Collect weekly if baseline is abnormal. Performed By: #### L [id number] #### [facility] (DEFAULT) [address] [address] Platelets (Bld) [#/Vol] 398 10*3/uL High 150-393 [facility] Comment on above: Order Comment: Prior to first [facility] Infusion and then every 2 weeks.until results within normal limits. Collect weekly if baseline is abnormal. Performed By: #### L [id number] #### [facility] (DEFAULT) [address] [address] RBC (Bld) [#/Vol] 3.91 10*6/uL Normal 3.91-5.04 [facility] Comment on above: Order Comment: Prior to first [employer] Infusion and then every 2 weeks.until results within normal limits. Collect weekly if baseline is abnormal. Performed By: #### L [id number] #### [facility] (DEFAULT) [address] [address] RBC Distribution 14.5 % Normal 10.8-14.9 [facility] Comment on above: Order Comment: Prior to first [employer] Infusion and then every 2 weeks.until results within normal limits. Collect weekly if baseline is abnormal. Performed By: #### L [id number] #### [facility] [address] [address] Segs + Bands Auto 60.9 % Normal [facility] Comment on above: Order Comment: Prior to first [employer] Infusion and then every 2 weeks.until results within normal limits. Collect weekly if baseline is abnormal. Performed By: #### L [id number] #### [facility] (DEFAULT) [address] [address] Segs + Bands,Absolute Auto 5.63 K/uL Normal 1.64-7.28 [facility] Comment on above: Order Comment: Prior to first [employer]ex Infusion and then every 2 weeks.until results within normal limits. Collect weekly if baseline is abnormal. Performed By: #### L [id number] #### [facility] (DEFAULT) [address] [address] WBC (Bld) [#/Vol] 9.27 10*3/uL Normal 3.99-11.19 [facility] Comment on above: Order Comment: Prior to first [employer] Infusion and then every 2 weeks.until results within normal limits. Collect weekly if baseline is abnormal. Performed By: #### L [id number] #### [facility] (DEFAULT) [address] [address] B HYDROXYBUTYRATEon 01-15-20 21 B HYDROXYBUTYRATE 0.08 MMOL/L Normal 0.02-0.27 [facility] Comment on above: Performed By: #### C MPF, BHB, ACBC #### Testing performed at [address] [address] CBCon 01-14-2021 ABSOLUTE BAS 0.0 10*3/uL Normal 0.0-0.2 [facility] Comment on above: Performed By: #### C MPF, BHB, ACBC #### Testing performed at [address] [address] ABSOLUTE EOS 0.20 10*3/uL Normal 0.0-0.7 [facility] Comment on above: Performed By: #### C MPF, BHB, ACBC #### Testing performed at [address] [address] ABSOLUTE NEUTROPHIL COUNT 4.9 10*3/uL Normal 1.4-6.5 [facility] Comment on above: Performed By: #### C MPF, BHB, ACBC #### Testing performed at [address] [address] Basophils/100 WBC (Bld) 0.4 % Normal 0.0-2.0 [facility] Comment on above: Performed By: #### C MPF, BHB, ACBC #### Testing performed at [address] [address] DTYPE AUTO DIFF Normal [facility] Comment on above: Performed By: #### C MPF, BHB, ACBC #### Testing performed at [address] [address] Eosinophils/100 WBC (Bld) 2.3 % Normal 0.0-11.0 [facility] Comment on above: Performed By: #### C MPF, BHB, ACBC #### Testing performed at [address] [address] Lymphocytes (Bld) [#/Vol] 2.10 10*3/uL Normal 1.2-3.4 [facility] Comment on above: Performed By: #### C MPF, BHB, ACBC #### Testing performed at [address] [address] Lymphocytes/100 WBC (Bld) 27.2 % Normal 20.0-55.0 [facility] Comment on above: Performed By: #### C MPF, BHB, ACBC #### Testing performed at [address] [address] Monocytes (Bld) [#/Vol] 0.6 10*3/uL Normal 0.0-0.7 [facility] Comment on above: Performed By: #### C MPF, BHB, ACBC #### Testing performed at [address] [address] Monocytes/100 WBC (Bld) 7.5 % Normal 0.0-10.0 [facility] Comment on above: Performed By: #### C MPF, BHB, ACBC #### Testing performed at [address] [address] Neutrophils/100 WBC (Bld) 62.6 % Normal 37.0-75.0 [facility] Comment on above: Performed By: #### C MPF, BHB, ACBC #### Testing performed at [address] [address] Erythrocyte distribution width (RBC) [Ratio] 15.6 % High 11.5-14.5 [facility] Comment on above: Performed By: #### C MPF, BHB, ACBC #### Testing performed at [address] [address] Hematocrit (Bld) [Volume fraction] 32.7 % Low 36.0-48.0 [facility] Comment on above: Performed By: #### C MPF, BHB, ACBC #### Testing performed at [address] [address] Hemoglobin (Bld) [Mass/Vol] 10.8 g/dL Low 12.0-16.0 [facility] Comment on above: Performed By: #### C MPF, BHB, ACBC #### Testing performed at [address] [address] MCH (RBC) [Entitic mass] 27.3 pg Normal 26.0-35.0 [facility] Comment on above: Performed By: #### C MPF, BHB, ACBC #### Testing performed at [address] [address] MCHC (RBC) [Mass/Vol] 33.1 g/dL Normal 27.0-37.0 [facility] Comment on above: Performed By: #### C MPF, BHB, ACBC #### Testing performed at [address] [address] MCV (RBC) [Entitic vol] 82.5 fL Normal 80.0-100.0 [facility] Comment on above: Performed By: #### C MPF, BHB, ACBC #### Testing performed at [address] [address] Platelet mean volume (Bld) [Entitic vol] 7.1 fL Low 7.4-11.0 [facility] Comment on above: Performed By: #### C MPF, BHB, ACBC #### Testing performed at [address] [address] Platelets (Bld) [#/Vol] 359 10*3/uL Normal 130.0-400.0 [facility] Comment on above: Performed By: #### C MPF, BHB, ACBC #### Testing performed at [address] [address] RBC (Bld) [#/Vol] 3.96 10*6/uL Low 4.0-5.4 [facility] Comment on above: Performed By: #### C MPF BHB, ACBC #### Testing performed at [address] [address] WBC (Bld) [#/Vol] 7.8 10*3/uL Normal 3.6-11.0 [facility] Comment on above: Performed By: #### C MPF, BHB, ACBC #### Testing performed at [address] [address] CMP FASTINGon 01-14-2021 A:G RATIO 1.0 RATIO Low 1.3-2.2 [facility] Comment on above: Performed By: #### C MPF BHB, ACBC #### Testing performed at [address] [address] ALBUMIN 3.9 G/dl Normal 3.5-5.0 [facility] Comment on above: Performed By: #### C MPF BHB, ACBC #### Testing performed at [address] [address] ALP [Catalytic activity/Vol] 117 U/L Normal 38-126 [facility] Comment on above: Performed By: #### C MPF BHB, ACBC #### Testing performed at [address] [address] ALT [Catalytic activity/Vol] 24 U/L Normal 14-54 [facility] Comment on above: Performed By: #### C MPF BHB, ACBC #### Testing performed at [address] [address] AST [Catalytic activity/Vol] 22 U/L Normal 15-41 [facility] Comment on above: Performed By: #### C MPF BHB, ACBC #### Testing performed at [address] [address] Bilirubin [Mass/Vol] 0.4 mg/dL Normal 0.2-1.2 [facility] Comment on above: Performed By: #### C MPF, BHB, ACBC #### Testing performed at [address] [address] Calcium [Mass/Vol] 9.0 mg/dL Normal 8.4-10.2 [facility] Comment on above: Performed By: #### C SANGEETA CRUZ ACBC #### Testing performed at [address] [address] Chloride [Moles/Vol] 101 mmol/L Normal 98-107 [facility] Comment on above: Performed By: #### C SANGEETA CRUZ ACCORIE #### Testing performed at [address] [address] CO2 [Moles/Vol] 23 mmol/L Normal 22-30 [facility] Comment on above: Performed By: #### C SANGEETA CRUZ ACBC #### Testing performed at [address] [address] Creatinine [Mass/Vol] 1.40 mg/dL High 0.52-1.04 [facility] Comment on above: Performed By: #### C SANGEETA CRUZ ACBC #### Testing performed at [address] [address] EST. GFR, 50 ml/min/1.73sq.m [facility] Comment on above: Performed By: #### C SANGEETA CRUZ ACBC #### Testing performed at [address] [address] EST. GFR,Non 41 ml/min/1.73sq.m [facility] Comment on above: Performed By: #### C SANGEETA CRUZ ACCORIE #### Testing performed at [address] [address] GFR Information Average GFR for 50-5 9 years old = 93. 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 Kidney failure, GFR = <15. The GFR estimate is not adjusted for extreme body surface area or acute process, nor has it been validated for women or ethnic groups other than and . Performed By: #### C MPFSANGEETA, ACCORIE #### Testing performed at [facility] [place] [facility] [address] [place] [address] Glucose [Mass/Vol] 457 mg/dL Critically high 70-100 [facility] Comment on above: Result Comment: NORMAL <100 mg/dL PREDIABETES 101-126 mg/dL DIABETES 126 mg/dL or higher Result called to read back by: Malvin WOODY 01/13/2021 @ 22:34 by CHARLES Performed By: #### C MPF, BHB, ACBC #### Testing performed at [address] [address] Potassium [Moles/Vol] 4.6 mmol/L Normal 3.5-5.1 [facility] Comment on above: Performed By: #### C MPF, BHB, ACBC #### Testing performed at [address] [address] Protein [Mass/Vol] 7.9 g/dL Normal 6.3-8.2 [facility] Comment on above: Performed By: #### C MPF, BHB, ACBC #### Testing performed at [address] [address] Sodium [Moles/Vol] 134 mmol/L Low 136-145 [facility] Comment on above: Performed By: #### C MPF, BHB, ACBC #### Testing performed at [address] [address] Urea nitrogen [Mass/Vol] 36 mg/dL High 7-20 [facility] Comment on above: Performed By: #### C MPF, BHB, ACBC #### Testing performed at [address] [address] POCT GLUCOSEon 01-14-2021 Glucose [Mass/Vol] 391 mg/dL High 70-100 [facility] [employer] [id number] Normal [facility] Glucose [Mass/Vol] 217 mg/dL High 70-100 [facility] [employer] [id number] Normal [facility] URINE MACROSCOPICon 01-15-20 21 Bilirubin Ql (U) Negative Normal NEGATIVE [facility] Comment on above: Performed By: #### U MAC, UMIC #### Testing performed at [address] [address] Clarity (U) CLEAR Normal CLEAR [facility] Comment on above: Performed By: #### U MAC, UMIC #### Testing performed at [address] [address] Color (U) YELLOW Normal YELLOW [facility] Comment on above: Performed By: #### U MAC, UMIC #### Testing performed at [address] [address] Glucose Ql (U) 500 mg/dl Abnormal NEGATIVE [facility] Comment on above: Performed By: #### U MAC, UMIC #### Testing performed at [address] [address] pH (U) 6.0 [pH] Normal 5.0-7.0 [facility] Comment on above: Performed By: #### U MAC, UMIC #### Testing performed at [address] [address] URINE HEMOGLOBIN TRACE-INTACT Abnormal NEGATIVE [facility] Comment on above: Performed By: #### U MAC, UMIC #### Testing performed at [address] [place] [address] URINE KETONE Negative Normal NEGATIVE [facility] Comment on above: Performed By: #### U MAC, UMIC #### Testing performed at [address] [address] URINE LEUKOTEST Negative Normal NEGATIVE [facility] Comment on above: Performed By: #### U MAC, UMIC #### Testing performed at [address] [address] URINE NITRATES Negative Normal NEGATIVE [facility] Comment on above: Performed By: #### U MAC, UMIC #### Testing performed at [address] [address] URINE SPEC GRAVITY 1.015 Normal 1.010-1.025 [facility] Comment on above: Performed By: #### U MAC, UMIC #### Testing performed at [address] [address] URINE TOTAL PROTEIN Negative Normal NEGATIVE [facility] Comment on above: Performed By: #### U MAC, UMIC #### Testing performed at [address] [address] Urobilinogen Qn (U) 0.2 {Rikki'U}/dL Normal 0.2-1.0 [facility] Comment on above: Performed By: #### U MAC, UMIC #### Testing performed at [address] [address] URINE MICROSCOPICon 01-15-20 21 Bacteria LM.HPF (Urine sed) [#/Area] Negative Normal NEGATIVE [facility] Comment on above: Performed By: #### U MAC, UMIC #### Testing performed at [address] [address] CASTS NONE Normal [facility] Comment on above: Performed By: #### U MAC, UMIC #### Testing [place] [address] CRYSTAL NONE Normal [facility] Comment on above: Performed By: #### U MAC, UMIC #### Testing [place] [address] Epithelial cells LM Ql (Urine sed) 1 TO 5 Normal [facility] Comment on above: Performed By: #### U MAC, UMIC #### Testing performed at [address] [address] Mucus Ql (Urine sed) Negative Normal NEGATIVE [facility] Comment on above: Performed By: #### U MAC, UMIC #### Testing performed at [address] [address] URINE COMMENT CULTURE CRITERIA NOT MET, NO CULTURE PERFORMED. Normal [facility] Comment on above: Performed By: #### U MAC, UMIC #### Testing performed at [address] [address] URINE RBC'S Negative Normal NEGATIVE [facility] Comment on above: Performed By: #### U MAC, UMIC #### Testing performed at [address] [address] URINE WBC'S Negative Normal NEGATIVE [facility] Comment on above: Performed By: #### U MAC, UMIC #### Testing performed at [address] [address] BUN CREAon 01-10-2021 Creatinine [Mass/Vol] 1.22 mg/dL High 0.50-1.20 [facility] Comment on above: Order Comment: Prior to first [facility] Infusion and every 2 weeks if baseline CR is within normal limits. Performed By: #### B CR #### [facility] (DEFAULT) [address] [address] EST GFR, 55 mL/min/1.73sqM Low >=60 [facility] Comment on above: Order Comment: Prior to first [facility] Infusion and every 2 weeks if baseline CR is within normal limits. Performed By: #### B CR #### [facility] (DEFAULT) [address] [address] EST GFR,Non 45 mL/min/1.73sqM Low >=60 [facility] Comment on above: Order Comment: Prior to first [employer]ex Infusion and every 2 weeks if baseline CR is within normal limits. Performed By: #### B CR #### [facility] (DEFAULT) [address] [address] Urea nitrogen [Mass/Vol] 20 mg/dL Normal 7- [facility] Comment on above: Order Comment: Prior to first [facility] Infusion and every 2 weeks if baseline CR is within normal limits. Performed By: #### B CR #### [facility] (DEFAULT) [address] [address] Urea nitrogen/Creatinine [Mass ratio] 16 mg/mg Normal [facility] Comment on above: Order Comment: Prior to first [facility] Infusion and every 2 weeks if baseline CR is within normal limits. Performed By: #### B CR #### [facility] (DEFAULT) [address] [address] CBC AND ELECTRONIC DIFFon Basophils (Bld) [#/Vol] 10*3/uL Normal 0.00-0.15 [facility] Comment on above: Order Comment: Prior to first [facility] Infusion and then every 2 weeks.until results within normal limits. Collect weekly if baseline is abnormal. Performed By: #### L [id number] #### [facility] (DEFAULT) [address] [address] Basophils/100 WBC (Bld) 0.4 % Normal [facility] Comment on above: Order Comment: Prior to first [facility] Infusion and then every 2 weeks.until results within normal limits. Collect weekly if baseline is abnormal. Performed By: #### L [id number] #### [facility] (DEFAULT) [address] [address] DIFF STATUS Electronic Differential Normal [facility] Comment on above: Order Comment: Prior to first [facility] Infusion and then every 2 weeks.until results within normal limits. Collect weekly if baseline is abnormal. Performed By: #### L [id number] #### [facility] (DEFAULT) [address] [address] Eosinophils (Bld) [#/Vol] 0.16 10*3/uL Normal 0.00-0.42 [facility] Comment on above: Order Comment: Prior to first [facility] Infusion and then every 2 weeks.until results within normal limits. Collect weekly if baseline is abnormal. Performed By: #### L [id number] #### [facility] (DEFAULT) [address] [address] Eosinophils/100 WBC (Bld) 2.1 % Normal [facility] Comment on above: Order Comment: Prior to first [facility] Infusion and then every 2 weeks.until results within normal limits. Collect weekly if baseline is abnormal. Performed By: #### L [id number] #### [facility] (DEFAULT) [address] [address] Hematocrit (Bld) [Volume fraction] 32.0 % Low 34.9-44.3 [facility] Comment on above: Order Comment: Prior to first [facility] Infusion and then every 2 weeks.until results within normal limits. Collect weekly if baseline is abnormal. Performed By: #### L [id number] #### [facility] (DEFAULT) [address] [address] Hemoglobin (Bld) [Mass/Vol] 10.1 g/dL Low 11.4-15.2 [facility] Comment on above: Order Comment: Prior to first [facility] Infusion and then every 2 weeks.until results within normal limits. Collect weekly if baseline is abnormal. Performed By: #### L [id number] #### [facility] (DEFAULT) [address] [address] Immature Grans % 0.3 % Normal [facility] Comment on above: Order Comment: Prior to first [facility] Infusion and then every 2 weeks.until results within normal limits. Collect weekly if baseline is abnormal. Performed By: #### L [id number] #### [facility] (DEFAULT) [address] [address] Immature Grans Absolute <0.04 Normal <=0.09 [facility] Comment on above: Order Comment: Prior to first [facility] Infusion and then every 2 weeks.until results within normal limits. Collect weekly if baseline is abnormal. Performed By: #### L [id number] #### [facility] (DEFAULT) [address] [address] Lymphocytes (Bld) [#/Vol] 2.23 10*3/uL Normal 1.16-3.51 [facility] Comment on above: Order Comment: Prior to first [facility] Infusion and then every 2 weeks.until results within normal limits. Collect weekly if baseline is abnormal. Performed By: #### L [id number] #### [facility] (DEFAULT) [address] [address] Lymphocytes/100 WBC (Bld) 28.8 % Normal [facility] Comment on above: Order Comment: Prior to first [facility] Infusion and then every 2 weeks.until results within normal limits. Collect weekly if baseline is abnormal. Performed By: #### L [id number] #### [facility] (DEFAULT) [address] [address] MCV (RBC) [Entitic vol] 86.0 fL Normal 79.6-97.7 [facility] Comment on above: Order Comment: Prior to first [facility] Infusion and then every 2 weeks.until results within normal limits. Collect weekly if baseline is abnormal. Performed By: #### L [id number] #### [facility] (DEFAULT) [address] [address] Mean Cell Hgb 27.2 pg Normal 25.9-33.9 [facility] Comment on above: Order Comment: Prior to first [facility] Infusion and then every 2 weeks.until results within normal limits. Collect weekly if baseline is abnormal. Performed By: #### L [id number] #### [facility] (DEFAULT) [address] [address] Mean Cell Hgb Conc 31.6 g/dL Normal 31.4-35.9 [facility] Comment on above: Order Comment: Prior to first [facility] Infusion and then every 2 weeks.until results within normal limits. Collect weekly if baseline is abnormal. Performed By: #### L [id number] #### [facility] (DEFAULT) [address] [address] Monocytes (Bld) [#/Vol] 0.38 10*3/uL Normal 0.22-0.87 [facility] Comment on above: Order Comment: Prior to first [facility] Infusion and then every 2 weeks.until results within normal limits. Collect weekly if baseline is abnormal. Performed By: #### L [id number] #### [facility] (DEFAULT) [address] [address] Monocytes/100 WBC (Bld) 4.9 % Normal [facility] Comment on above: Order Comment: Prior to first [facility] Infusion and then every 2 weeks.until results within normal limits. Collect weekly if baseline is abnormal. Performed By: #### L [id number] #### [facility] (DEFAULT) [address] [address] Nucleated RBC 0.0 /100 WBC Normal <=0.2 [facility] Comment on above: Order Comment: Prior to first [facility] Infusion and then every 2 weeks.until results within normal limits. Collect weekly if baseline is abnormal. Performed By: #### L [id number] #### [facility] (DEFAULT) [address] [address] Platelet mean volume (Bld) [Entitic vol] 9.4 fL Normal 8.5-12.2 [facility] Comment on above: Order Comment: Prior to first [facility] Infusion and then every 2 weeks.until results within normal limits. Collect weekly if baseline is abnormal. Performed By: #### L [id number] #### [facility] (DEFAULT) [address] [address] Platelets (Bld) [#/Vol] 352 10*3/uL Normal 150-393 [facility] Comment on above: Order Comment: Prior to first [facility] Infusion and then every 2 weeks.until results within normal limits. Collect weekly if baseline is abnormal. Performed By: #### L [id number] #### [facility] (DEFAULT) [address] [address] RBC (Bld) [#/Vol] 3.72 10*6/uL Low 3.91-5.04 [facility] Comment on above: Order Comment: Prior to first [facility] Infusion and then every 2 weeks.until results within normal limits. Collect weekly if baseline is abnormal. Performed By: #### L [id number] #### [facility] (DEFAULT) [address] [address] RBC Distribution 15.3 % High 10.8-14.9 [facility] Comment on above: Order Comment: Prior to first [facility] Infusion and then every 2 weeks.until results within normal limits. Collect weekly if baseline is abnormal. Performed By: #### L [id number] #### [facility] (DEFAULT) [address] [address] Segs + Bands Auto 63.5 % Normal [facility] Comment on above: Order Comment: Prior to first [facility] Infusion and then every 2 weeks.until results within normal limits. Collect weekly if baseline is abnormal. Performed By: #### L [id number] #### [facility] (DEFAULT) [address] [address] Segs + Bands,Absolute Auto 4.93 K/uL Normal 1.64-7.28 [facility] Comment on above: Order Comment: Prior to first [facility] Infusion and then every 2 weeks.until results within normal limits. Collect weekly if baseline is abnormal. Performed By: #### L [id number] #### [facility] (DEFAULT) [address] [address] WBC (Bld) [#/Vol] 7.75 10*3/uL Normal 3.99-11.19 [facility] Comment on above: Order Comment: Prior to first [facility] Infusion and then every 2 weeks.until results within normal limits. Collect weekly if baseline is abnormal. Performed By: #### L [id number] #### [facility] (DEFAULT) [address] [address] BUN CREAon 12-27-2020 Creatinine [Mass/Vol] 1.10 mg/dL Normal 0.50-1.20 [facility] Comment on above: Order Comment: Prior to first [facility] Infusion and every 2 weeks if baseline CR is within normal limits. Performed By: #### B CR #### [facility] (DEFAULT) [address] [address] EST GFR, >=60 Normal >=60 [facility] Comment on above: Order Comment: Prior to first [facility] Infusion and every 2 weeks if baseline CR is within normal limits. Performed By: #### B CR #### [facility] (DEFAULT) [address] [address] EST GFR,Non 51 mL/min/1.73sqM Low >=60 [facility] Comment on above: Order Comment: Prior to first [facility] Infusion and every 2 weeks if baseline CR is within normal limits. Performed By: #### B CR #### [facility] (DEFAULT) [address] [address] Urea nitrogen [Mass/Vol] 26 mg/dL High 7- [facility] Comment on above: Order Comment: Prior to first [facility] Infusion and every 2 weeks if baseline CR is within normal limits. Performed By: #### B CR #### [facility] (DEFAULT) [address] [address] Urea nitrogen/Creatinine [Mass ratio] 24 mg/mg Normal [facility] Comment on above: Order Comment: Prior to first [facility] Infusion and every 2 weeks if baseline CR is within normal limits. Performed By: #### B CR #### [facility] (DEFAULT) [address] [address] CBC AND ELECTRONIC DIFFon Basophils (Bld) [#/Vol] 10*3/uL Normal 0.00-0.15 [facility] Comment on above: Order Comment: Prior to first [facility] Infusion and every 2 weeks if baseline CR is within normal limits. Performed By: #### B CR #### [facility] (DEFAULT) [address] [address] Basophils/100 WBC (Bld) 0.3 % Normal [facility] Comment on above: Order Comment: Prior to first [facility] Infusion and every 2 weeks if baseline CR is within normal limits. Performed By: #### B CR #### [facility] (DEFAULT) [address] [address] DIFF STATUS Electronic Differential Normal [facility] Comment on above: Order Comment: Prior to first [facility] Infusion and every 2 weeks if baseline CR is within normal limits. Performed By: #### B CR #### [facility] (DEFAULT) [address] [address] Eosinophils (Bld) [#/Vol] 0.20 10*3/uL Normal 0.00-0.42 [facility] Comment on above: Order Comment: Prior to first [facility] Infusion and every 2 weeks if baseline CR is within normal limits. Performed By: #### B CR #### [facility] (DEFAULT) [address] [place] [address] Eosinophils/100 WBC (Bld) 2.0 % Normal [facility] Comment on above: Order Comment: Prior to first [facility] Infusion and every 2 weeks if baseline CR is within normal limits. Performed By: #### B CR #### [facility] (DEFAULT) [address] [address] Hematocrit (Bld) [Volume fraction] 31.0 % Low 34.9-44.3 [facility] Comment on above: Order Comment: Prior to first [facility] Infusion and every 2 weeks if baseline CR is within normal limits. Performed By: #### B CR #### [facility] (DEFAULT) [address] [address] Hemoglobin (Bld) [Mass/Vol] 10.0 g/dL Low 11.4-15.2 [facility] Comment on above: Order Comment: Prior to first [facility] Infusion and every 2 weeks if baseline CR is within normal limits. Performed By: #### B CR #### [facility] (DEFAULT) [address] [address] Immature Grans % 0.2 % Normal [facility] Comment on above: Order Comment: Prior to first [facility] Infusion and every 2 weeks if baseline CR is within normal limits. Performed By: #### B CR #### [facility] (DEFAULT) [address] [address] Immature Grans Absolute <0.04 Normal <=0.09 [facility] Comment on above: Order Comment: Prior to first [facility] Infusion and every 2 weeks if baseline CR is within normal limits. Performed By: #### B CR #### [facility] (DEFAULT) [address] [address] Lymphocytes (Bld) [#/Vol] 2.96 10*3/uL Normal 1.16-3.51 [facility] Comment on above: Order Comment: Prior to first [facility] Infusion and every 2 weeks if baseline CR is within normal limits. Performed By: #### B CR #### [facility] (DEFAULT) [address] [address] Lymphocytes/100 WBC (Bld) 29.9 % Normal [facility] Comment on above: Order Comment: Prior to first [facility] Infusion and every 2 weeks if baseline CR is within normal limits. Performed By: #### B CR #### [facility] (DEFAULT) [address] [address] MCV (RBC) [Entitic vol] 84.9 fL Normal 79.6-97.7 [facility] Comment on above: Order Comment: Prior to first [facility] Infusion and every 2 weeks if baseline CR is within normal limits. Performed By: #### B CR #### [facility] (DEFAULT) [address] [address] Mean Cell Hgb 27.4 pg Normal 25.9-33.9 [facility] Comment on above: Order Comment: Prior to first [facility] Infusion and every 2 weeks if baseline CR is within normal limits. Performed By: #### B CR #### [facility] (DEFAULT) [address] [address] Mean Cell Hgb Conc 32.3 g/dL Normal 31.4-35.9 [facility] Comment on above: Order Comment: Prior to first [facility] Infusion and every 2 weeks if baseline CR is within normal limits. Performed By: #### B CR #### [facility] (DEFAULT) [address] [address] Monocytes (Bld) [#/Vol] 0.50 10*3/uL Normal 0.22-0.87 [facility] Comment on above: Order Comment: Prior to first [facility] Infusion and every 2 weeks if baseline CR is within normal limits. Performed By: #### B CR #### [facility] (DEFAULT) [address] [address] Monocytes/100 WBC (Bld) 5.1 % Normal [facility] Comment on above: Order Comment: Prior to first [facility] Infusion and every 2 weeks if baseline CR is within normal limits. Performed By: #### B CR #### [facility] (DEFAULT) [address] [place] [address] Nucleated RBC 0.0 /100 WBC Normal <=0.2 [facility] Comment on above: Order Comment: Prior to first [facility] Infusion and every 2 weeks if baseline CR is within normal limits. Performed By: #### B CR #### [facility] (DEFAULT) [address] [place] [address] Platelet mean volume (Bld) [Entitic vol] 9.2 fL Normal 8.5-12.2 [facility] Comment on above: Order Comment: Prior to first [facility] Infusion and every 2 weeks if baseline CR is within normal limits. Performed By: #### B CR #### [facility] (DEFAULT) [address] [address] Platelets (Bld) [#/Vol] 372 10*3/uL Normal 150-393 [facility] Comment on above: Order Comment: Prior to first [facility] Infusion and every 2 weeks if baseline CR is within normal limits. Performed By: #### B CR #### [facility] (DEFAULT) [address] [address] RBC (Bld) [#/Vol] 3.65 10*6/uL Low 3.91-5.04 [facility] Comment on above: Order Comment: Prior to first [facility] Infusion and every 2 weeks if baseline CR is within normal limits. Performed By: #### B CR #### [facility] (DEFAULT) [address] [place] [address] RBC Distribution 14.7 % Normal 10.8-14.9 [facility] Comment on above: Order Comment: Prior to first [facility] Infusion and every 2 weeks if baseline CR is within normal limits. Performed By: #### B CR #### [facility] (DEFAULT) [address] [place] [address] Segs + Bands Auto 62.5 % Normal [facility] Comment on above: Order Comment: Prior to first [facility] Infusion and every 2 weeks if baseline CR is within normal limits. Performed By: #### B CR #### [facility] (DEFAULT) [address] [place] [address] Segs + Bands,Absolute Auto 6.18 K/uL Normal 1.64-7.28 [facility] Comment on above: Order Comment: Prior to first [facility] Infusion and every 2 weeks if baseline CR is within normal limits. Performed By: #### B CR #### [facility] (DEFAULT) [address] [place] [address] WBC (Bld) [#/Vol] 9.89 10*3/uL Normal 3.99-11.19 [facility] Comment on above: Order Comment: Prior to first [facility] Infusion and every 2 weeks if baseline CR is within normal limits. Performed By: #### B CR #### [facility] (DEFAULT) [address] [place] [address] OCT/HRT MAC[place] OUon 12-28-19 21 OCT/HRT [facility] OU Right Eye Quality was good. Findings include subretinal fluid. Interval change is better. Recommendation for management is to continue treatment. Left Eye Quality was good. Findings include subretinal fluid. Interval change is better. Recommendation for management is to continue treatment. Normal [facility] Apply dressingon 12-19-2020 Applied dressing [facility] Apply dressingOrdered By: St ester Aguirre on 12-19-2020 [facility] BUN CREAon 12-13-2020 Creatinine [Mass/Vol] 0.99 mg/dL Normal 0.50-1.20 [facility] Comment on above: Order Comment: Prior to first [facility] Infusion and every 2 weeks if baseline CR is within normal limits. Performed By: #### B CR #### [facility] (DEFAULT) [address] [place] [address] EST GFR, >=60 Normal >=60 [facility] Comment on above: Order Comment: Prior to first [facility] Infusion and every 2 weeks if baseline CR is within normal limits. Performed By: #### B CR #### [facility] (DEFAULT) [address] [address] EST GFR,Non 58 mL/min/1.73sqM Low >=60 [facility] Comment on above: Order Comment: Prior to first [facility] Infusion and every 2 weeks if baseline CR is within normal limits. Performed By: #### B CR #### [facility] (DEFAULT) [address] [place] [address] Urea nitrogen [Mass/Vol] 25 mg/dL High 7- [facility] Comment on above: Order Comment: Prior to first [facility] Infusion and every 2 weeks if baseline CR is within normal limits. Performed By: #### B CR #### [facility] (DEFAULT) [address] [address] Urea nitrogen/Creatinine [Mass ratio] 25 mg/mg Normal [facility] Comment on above: Order Comment: Prior to first [facility] Infusion and every 2 weeks if baseline CR is within normal limits. Performed By: #### B CR #### [facility] (DEFAULT) [address] [address] CBC AND ELECTRONIC DIFFon Basophils (Bld) [#/Vol] 0.04 10*3/uL Normal 0.00-0.15 [facility] Comment on above: Order Comment: Prior to first [facility] Infusion and every 2 weeks if baseline CR is within normal limits. Performed By: #### B CR #### [facility] (DEFAULT) [address] [place] [address] Basophils/100 WBC (Bld) 0.4 % Normal [facility] Comment on above: Order Comment: Prior to first [facility] Infusion and every 2 weeks if baseline CR is within normal limits. Performed By: #### B CR #### [facility] (DEFAULT) [address] [address] DIFF STATUS Electronic Differential Normal [facility] Comment on above: Order Comment: Prior to first [facility] Infusion and every 2 weeks if baseline CR is within normal limits. Performed By: #### B CR #### [facility] (DEFAULT) [address] [address] Eosinophils (Bld) [#/Vol] 0.13 10*3/uL Normal 0.00-0.42 [facility] Comment on above: Order Comment: Prior to first [facility] Infusion and every 2 weeks if baseline CR is within normal limits. Performed By: #### B CR #### [facility] (DEFAULT) [address] [address] Eosinophils/100 WBC (Bld) 1.4 % Normal [facility] Comment on above: Order Comment: Prior to first [facility] Infusion and every 2 weeks if baseline CR is within normal limits. Performed By: #### B CR #### [facility] (DEFAULT) [address] [address] Hematocrit (Bld) [Volume fraction] 33.6 % Low 34.9-44.3 [facility] Comment on above: Order Comment: Prior to first [facility] Infusion and every 2 weeks if baseline CR is within normal limits. Performed By: #### B CR #### [facility] (DEFAULT) [address] [address] Hemoglobin (Bld) [Mass/Vol] 10.6 g/dL Low 11.4-15.2 [facility] Comment on above: Order Comment: Prior to first [facility] Infusion and every 2 weeks if baseline CR is within normal limits. Performed By: #### B CR #### [facility] (DEFAULT) [address] [address] Immature Grans % 0.2 % Normal [facility] Comment on above: Order Comment: Prior to first [facility] Infusion and every 2 weeks if baseline CR is within normal limits. Performed By: #### B CR #### [facility] (DEFAULT) [address] [address] Immature Grans Absolute <0.04 Normal <=0.09 [facility] Comment on above: Order Comment: Prior to first [facility] Infusion and every 2 weeks if baseline CR is within normal limits. Performed By: #### B CR #### [facility] (DEFAULT) [address] [address] Lymphocytes (Bld) [#/Vol] 2.53 10*3/uL Normal 1.16-3.51 [facility] Comment on above: Order Comment: Prior to first [facility] Infusion and every 2 weeks if baseline CR is within normal limits. Performed By: #### B CR #### [facility] (DEFAULT) [address] [place] [address] Lymphocytes/100 WBC (Bld) 27.2 % Normal [facility] Comment on above: Order Comment: Prior to first [facility] Infusion and every 2 weeks if baseline CR is within normal limits. Performed By: #### B CR #### [facility] (DEFAULT) [address] [address] MCV (RBC) [Entitic vol] 86.4 fL Normal 79.6-97.7 [facility] Comment on above: Order Comment: Prior to first [facility] Infusion and every 2 weeks if baseline CR is within normal limits. Performed By: #### B CR #### [facility] (DEFAULT) [address] [place] [address] Mean Cell Hgb 27.2 pg Normal 25.9-33.9 [facility] Comment on above: Order Comment: Prior to first [facility] and every 2 weeks if baseline CR is within normal limits. Performed By: #### B CR #### [facility] (DEFAULT) [address] [place] [address] Mean Cell Hgb Conc 31.5 g/dL Normal 31.4-35.9 [facility] Comment on above: Order Comment: Prior to first [facility] and every 2 weeks if baseline CR is within normal limits. Performed By: #### B CR #### [facility] (DEFAULT) [address] [place] [address] Monocytes (Bld) [#/Vol] 0.60 10*3/uL Normal 0.22-0.87 [facility] Comment on above: Order Comment: Prior to first [facility] and every 2 weeks if baseline CR is within normal limits. Performed By: #### B CR #### [facility] (DEFAULT) [address] [address] Monocytes/100 WBC (Bld) 6.4 % Normal [facility] Comment on above: Order Comment: Prior to first [facility] and every 2 weeks if baseline CR is within normal limits. Performed By: #### B CR #### [facility] (DEFAULT) [address] [address] Nucleated RBC 0.0 /100 WBC Normal <=0.2 [facility] Comment on above: Order Comment: Prior to first [facility] and every 2 weeks if baseline CR is within normal limits. Performed By: #### B CR #### [facility] (DEFAULT) [address] [address] Platelet mean volume (Bld) [Entitic vol] 9.5 fL Normal 8.5-12.2 [facility] Comment on above: Order Comment: Prior to first [facility] and every 2 weeks if baseline CR is within normal limits. Performed By: #### B CR #### [facility] (DEFAULT) [address] [address] Platelets (Bld) [#/Vol] 365 10*3/uL Normal 150-393 [facility] Comment on above: Order Comment: Prior to first [facility] and every 2 weeks if baseline CR is within normal limits. Performed By: #### B CR #### [facility] (DEFAULT) [address] [address] RBC (Bld) [#/Vol] 3.89 10*6/uL Low 3.91-5.04 [facility] Comment on above: Order Comment: Prior to first [facility] and every 2 weeks if baseline CR is within normal limits. Performed By: #### B CR #### [facility] (DEFAULT) [address] [place] [address] RBC Distribution 14.5 % Normal 10.8-14.9 [facility] Comment on above: Order Comment: Prior to first [facility] and every 2 weeks if baseline CR is within normal limits. Performed By: #### B CR #### [facility] (DEFAULT) [address] [address] Segs + Bands Auto 64.4 % Normal [facility] Comment on above: Order Comment: Prior to first [facility] and every 2 weeks if baseline CR is within normal limits. Performed By: #### B CR #### [facility] (DEFAULT) [address] [address] Segs + Bands,Absolute Auto 5.99 K/uL Normal 1.64-7.28 [facility] Comment on above: Order Comment: Prior to first [facility] and every 2 weeks if baseline CR is within normal limits. Performed By: #### B CR #### [facility] (DEFAULT) [address] [place] [address] WBC (Bld) [#/Vol] 9.31 10*3/uL Normal 3.99-11.19 [facility] Comment on above: Order Comment: Prior to first [facility] and every 2 weeks if baseline CR is within normal limits. Performed By: #### B CR #### [facility] (DEFAULT) [address] [address] ESR Westergren method (Bld) [Velocity]Ordered By: Terence Martinez on 10-17-2020 ESR (Bld) [Velocity] 64 mm/h [facility] Interpretation and review of laboratory results Abnormal [facility] OCT OPTIC NERVE OUon 021 [facility] Radiology Study observation (narrative) [facility] BUN CREAon 10-03-2020 Creatinine [Mass/Vol] 1.13 mg/dL 0.50 - 1.20 mg/dL [facility] GFR/1.73 sq M.predicted MDRD (S/P/Bld) [Vol rate/Area] 50 mL/min/{1.73_m2} Low >=60 mL/min/1.73 sqM [facility] GFR/1.73 sq M.predicted MDRD (S/P/Bld) [Vol rate/Area] mL/min/{1.73_m2} >=60 mL/min/1.73 sqM [facility] Interpretation and review of laboratory results Abnormal [facility] Urea nitrogen [Mass/Vol] 20 mg/dL 7 - 22 mg/dL [facility] Urea nitrogen/Creatinine [Mass ratio] 18 mg/mg [facility] CBC AND ELECTRONIC DIFFon Basophils (Bld) [#/Vol] 10*3/uL 0.00 - 0.15 K/uL [facility] Basophils/100 WBC (Bld) 0.3 % [facility] DIFF STATUS Electronic Differential [facility] Eosinophils (Bld) [#/Vol] 0.16 10*3/uL 0.00 - 0.42 K/uL [facility] Eosinophils/100 WBC (Bld) 2.1 % [facility] Erythrocyte distribution width (RBC) [Ratio] 14.0 % 10.8 - 14.9 % [facility] Hematocrit (Bld) [Volume fraction] 33.7 % Low 34.9 - 44.3 % [facility] Hemoglobin (Bld) [Mass/Vol] 10.3 g/dL Low 11.4 - 15.2 g/dL [facility] Immature granulocytes (Bld) [#/Vol] 10*3/uL <=0.09 K/uL [facility] Immature granulocytes/100 WBC (Bld) 0.3 % [facility] Interpretation and review of laboratory results Abnormal [facility] Lymphocytes (Bld) [#/Vol] 2.21 10*3/uL 1.16 - 3.51 K/uL [facility] Lymphocytes/100 WBC (Bld) 29.3 % [facility] MCH (RBC) [Entitic mass] 27.5 pg 25.9 - 33.9 pg [facility] MCHC (RBC) [Mass/Vol] 30.6 g/dL Low 31.4 - 35.9 g/dL [facility] MCV (RBC) [Entitic vol] 90.1 fL 79.6 - 97.7 fL [facility] Monocytes (Bld) [#/Vol] 0.46 10*3/uL 0.22 - 0.87 K/uL [facility] Monocytes/100 WBC (Bld) 6.1 % [facility] Neutrophils (Bld) [#/Vol] 4.66 10*3/uL 1.64 - 7.28 K/uL [facility] Nucleated RBC/100 WBC (Bld) [Ratio] 0.0 % <=0.2 /100 WBC [facility] Platelet mean volume (Bld) [Entitic vol] 9.5 fL 8.5 - 12.2 fL [facility] Platelets (Bld) [#/Vol] 357 10*3/uL 150 - 393 K/uL [facility] RBC (Bld) [#/Vol] 3.74 10*6/uL Low [facility] Segmented neutrophils/100 WBC (Bld) 61.9 % [facility] WBC (Bld) [#/Vol] 7.53 10*3/uL 3.99 - 11.19 K/uL [facility] XR MYELOMA SURVEYon 09-27-19 21 IMPRESSION: No discrete lytic lesions or [...] AP Chest: No obvious displaced rib fracture. [facility] Ira Gonzalez MD - 09/26/2020 EXAM: XR [...] No discrete lytic lesions or pathologic fractures. [facility] Radiology Study observation (narrative) [facility] XR MYELOMA SURVEYOrdered By: Ira Gonzalez on 09-26-2020 [facility] Work Phone: BUN CREAon 09-21-2020 Creatinine [Mass/Vol] 1.19 mg/dL 0.50 - 1.20 mg/dL [facility] GFR/1.73 sq M.predicted MDRD (S/P/Bld) [Vol rate/Area] 47 mL/min/{1.73_m2} Low >=60 mL/min/1.73 sqM [facility] GFR/1.73 sq M.predicted MDRD (S/P/Bld) [Vol rate/Area] 57 mL/min/{1.73_m2} Low >=60 mL/min/1.73 sqM [facility] Interpretation and review of laboratory results Abnormal [facility] Urea nitrogen [Mass/Vol] 26 mg/dL High 7 - 22 mg/dL [facility] Urea nitrogen/Creatinine [Mass ratio] 22 mg/mg [facility] CBC AND ELECTRONIC DIFFon Basophils (Bld) [#/Vol] 0.05 10*3/uL 0.00 - 0.15 K/uL [facility] Basophils/100 WBC (Bld) 0.6 % [facility] DIFF STATUS Electronic Differential [facility] Eosinophils (Bld) [#/Vol] 0.24 10*3/uL 0.00 - 0.42 K/uL [facility] Eosinophils/100 WBC (Bld) 2.8 % [facility] Erythrocyte distribution width (RBC) [Ratio] 13.9 % 10.8 - 14.9 % [facility] Hematocrit (Bld) [Volume fraction] 33.5 % Low 34.9 - 44.3 % [facility] Hemoglobin (Bld) [Mass/Vol] 10.7 g/dL Low 11.4 - 15.2 g/dL [facility] Immature granulocytes (Bld) [#/Vol] 10*3/uL <=0.09 K/uL [facility] Immature granulocytes/100 WBC (Bld) 0.2 % [facility] Interpretation and review of laboratory results Abnormal [facility] Lymphocytes (Bld) [#/Vol] 2.63 10*3/uL 1.16 - 3.51 K/uL [facility] Lymphocytes/100 WBC (Bld) 30.6 % [facility] MCH (RBC) [Entitic mass] 28.1 pg 25.9 - 33.9 pg [facility] MCHC (RBC) [Mass/Vol] 31.9 g/dL 31.4 - 35.9 g/dL [facility] MCV (RBC) [Entitic vol] 87.9 fL 79.6 - 97.7 fL [facility] Monocytes (Bld) [#/Vol] 0.50 10*3/uL 0.22 - 0.87 K/uL [facility] Monocytes/100 WBC (Bld) 5.8 % [facility] Neutrophils (Bld) [#/Vol] 5.15 10*3/uL 1.64 - 7.28 K/uL [facility] Nucleated RBC/100 WBC (Bld) [Ratio] 0.0 % <=0.2 /100 WBC [facility] Platelet mean volume (Bld) [Entitic vol] 9.2 fL 8.5 - 12.2 fL [facility] Platelets (Bld) [#/Vol] 377 10*3/uL 150 - 393 K/uL [facility] RBC (Bld) [#/Vol] 3.81 10*6/uL Low [facility] Segmented neutrophils/100 WBC (Bld) 60.0 % [facility] WBC (Bld) [#/Vol] 8.59 10*3/uL 3.99 - 11.19 K/uL [facility] CBC(NO DIFF)on 07-16-2021 Erythrocyte distribution width (RBC) [Ratio] 15.0 % High 11.5-14.5 [facility] Comment on above: Performed By: #### H EMOG, CMPF, LIP2, RTSH, T42 #### [place] [address] Hematocrit (Bld) [Volume fraction] 39.9 % Normal 36.0-48.0 [facility] Comment on above: Performed By: #### H EMOG, CMPF, LIP2, RTSH, T42 #### [place] [address] Hemoglobin (Bld) [Mass/Vol] 13.3 g/dL Normal 12.0-16.0 [facility] Comment on above: Performed By: #### H EMOG, CMPF, LIP2, RTSH, T42 #### [place] [address] MCH (RBC) [Entitic mass] 28.3 pg Normal 26.0-35.0 [facility] Comment on above: Performed By: #### H EMOG, CMPF, LIP2, RTSH, T42 #### [place] [address] MCHC (RBC) [Mass/Vol] 33.4 g/dL Normal 27.0-37.0 [facility] Comment on above: Performed By: #### H EMOG, CMPF, LIP2, RTSH, T42 #### [place] [address] MCV (RBC) [Entitic vol] 84.7 fL Normal 80.0-100.0 [facility] Comment on above: Performed By: #### H EMOG, CMPF, LIP2, RTSH, T42 #### [place] [address] Platelet mean volume (Bld) [Entitic vol] 6.9 fL Low 7.4-11.0 [facility] Comment on above: Result Comment: Test ing performed at [place] [address] Performed By: #### H EMOG, CMPF, LIP2, RTSH, T42 #### [place] [address] Platelets (Bld) [#/Vol] 275 10*3/uL Normal 130.0-400.0 [facility] Comment on above: Performed By: #### H EMOG, CMPF, LIP2, RTSH, T42 #### [place] [address] RBC (Bld) [#/Vol] 4.72 10*6/uL Normal 4.0-5.4 [facility] Comment on above: Performed By: #### H EMOG, CMPF, LIP2, RTSH, T42 #### [place] [address] WBC (Bld) [#/Vol] 6.7 10*3/uL Normal 3.6-11.0 [facility] Comment on above: Performed By: #### H EMOG, CMPF, LIP2, RTSH, T42 #### [place] [address] CMP FASTINGon 09-01-2020 A:G RATIO 1.2 RATIO Low 1.3-2.2 [facility] Comment on above: Performed By: #### H EMOG, CMPF, LIP2, RTSH, T42 #### [place] [address] ALBUMIN 4.1 G/dl Normal 3.5-5.0 [facility] Comment on above: Performed By: #### H EMOG, CMPF, LIP2, RTSH, T42 #### [place] [address] ALP [Catalytic activity/Vol] 103 U/L Normal 38-126 [facility] Comment on above: Performed By: #### H EMOG, CMPF, LIP2, RTSH, T42 #### [place] [address] ALT [Catalytic activity/Vol] 17 U/L Normal <35 [facility] Comment on above: Performed By: #### H EMOG, CMPF, LIP2, RTSH, T42 #### Testing performed at [address] [address] AST [Catalytic activity/Vol] 23 U/L Normal 14-36 [facility] Comment on above: Performed By: #### H EMOG, CMPF, LIP2, RTSH, T42 #### Testing performed at [place] [id number] Bilirubin [Mass/Vol] 0.1 mg/dL Low 0.2-1.3 [facility] Comment on above: Performed By: #### H EMOG, CMPF, LIP2, RTSH, T42 #### Testing performed at [place] [id number] Calcium [Mass/Vol] 9.2 mg/dL Normal 8.4-10.2 [facility] Comment on above: Performed By: #### H EMOG, CMPF, LIP2, RTSH, T42 #### Testing performed at [place] [id number] Chloride [Moles/Vol] 108 mmol/L High 98-107 [facility] Comment on above: Result Comment: Plea se note: Triglyceride levels of 600mg/dL or higher may positively bias chloride results by approximately 2.1 mmol Performed By: #### H EMOG, CMPF, LIP2, RTSH, T42 #### Testing performed at [place] [id number] CO2 [Moles/Vol] 23 mmol/L Normal 22-30 [facility] Comment on above: Performed By: #### H EMOG, CMPF, LIP2, RTSH, T42 #### Testing performed at [place] [id number] Creatinine [Mass/Vol] 1.00 mg/dL Normal 0.7-1.2 [facility] Comment on above: Performed By: #### H EMOG, CMPF, LIP2, RTSH, T42 #### [place] [address] EST. GFR, >60 Normal [facility] Comment on above: Performed By: #### H EMOG, CMPF, LIP2, RTSH, T42 #### [place] [address] EST. GFR,Non >60 Normal [facility] Comment on above: Performed By: #### H EMOG, CMPF, LIP2, RTSH, T42 #### [place] [address] GFR Information Average GFR for 50-5 9 years old = 93. 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 Kidney failure, GFR = <15. The GFR estimate is not adjusted for extreme body surface area or acute process, nor has it been validated for women or ethnic groups other than and . Testing performed at [place] [address] Performed By: #### H EMOG, CMPF, LIP2, RTSH, T42 #### [place] [address] Glucose [Mass/Vol] 193 mg/dL High 70-100 [facility] Comment on above: Result Comment: NORMAL <100 mg/dL PREDIABETES 101-126 mg/dL DIABETES 126 mg/dL or higher Performed By: #### H EMOG, CMPF, LIP2, RTSH, T42 #### [place] [address] Potassium [Moles/Vol] 5.4 mmol/L High 3.5-5.1 [facility] Comment on above: Performed By: #### H EMOG, CMPF, LIP2, RTSH, T42 #### [place] [address] Protein [Mass/Vol] 7.4 g/dL Normal 6.3-8.2 [facility] Comment on above: Performed By: #### H EMOG, CMPF, LIP2, RTSH, T42 #### [place] [address] Sodium [Moles/Vol] 140 mmol/L Normal 137-145 [facility] Comment on above: Performed By: #### H EMOG, CMPF, LIP2, RTSH, T42 #### [place] [address] Urea nitrogen [Mass/Vol] 19 mg/dL Normal 7-20 [facility] Comment on above: Performed By: #### H EMOG, CMPF, LIP2, RTSH, T42 #### [place] [address] FREE T4on 09-01-2020 Free T4 [Mass/Vol] 1.01 ng/dL Normal 0.78-2.19 [facility] Comment on above: Result Comment: Test ing performed at [place] [address] Performed By: #### H EMOG, CMPF, LIP2, RTSH, T42 #### [place] [address] HEMOGLOBIN A1Con 09-01-2020 Glucose [Mass/Vol] 232 mg/dL Normal [facility] Comment on above: Result Comment: Test ing performed at [place] [address] Performed By: #### H A1CT #### [place] [address] HbA1c (Bld) [Mass fraction] 9.7 % High 0-6 [facility] Comment on above: Result Comment: NORMAL <5.7% PREDIABETES 5.7-6.4% DIABETES 6.5% OR HIGHER Performed By: #### H A1CT #### [place] [address] LIPID PROFILEon 09-01-2020 Cholesterol [Mass/Vol] 232 mg/dL High 107-217 [facility] Comment on above: Performed By: #### H EMOG, CMPF, LIP2, RTSH, T42 #### Testing performed at [address] [address] Cholesterol in HDL [Mass/Vol] 51 mg/dL Normal 33-75 [facility] Comment on above: Performed By: #### H EMOG, CMPF, LIP2, RTSH, T42 #### Testing performed at [address] [address] Cholesterol in LDL [Mass/Vol] 154 mg/dL Normal [facility] Comment on above: Performed By: #### H EMOG, CMPF, LIP2, RTSH, T42 #### Testing performed at [address] [address] Cholesterol in VLDL [Mass/Vol] 27 mg/dL High 5.0-25 [facility] Comment on above: Performed By: #### H EMOG, CMPF, LIP2, RTSH, T42 #### Testing performed at [address] [address] Cholesterol.total/Erika sterol in HDL [Mass ratio] 4.55 {ratio} Normal [facility] Comment on above: Result Comment: RISK TOTAL/HDL RATIO MEN WOMEN 1/2 AVERAGE 3.43 3.27 AVERAGE 4.97 4.44 2X AVERAGE 9.55 7.05 3X AVERAGE 23.99 11.04 Testing performed at [place] [address] Performed By: #### H EMOG, CMPF, LIP2, RTSH, T42 #### Testing performed at [address] [address] Triglyceride [Mass/Vol] 133 mg/dL Normal 0-150 [facility] Comment on above: Performed By: #### H EMOG, CMPF, LIP2, RTSH, T42 #### Testing performed at [place] [id number] MALB/CREAT RATIO,URINEon MALB/CREAT RATIO,URINE 30.9 mg MALB/g CREAT High 1.3 -30.0 [facility] Comment on above: Result Comment: Test ing performed at [place] [address] Performed By: #### M CRAT #### [place] [address] MICROALBUMIN,RANDOM URINE 23.6 mg/L High 0-16.7 [facility] Comment on above: Performed By: #### M CRAT #### [place] [address] URINE CREATININE RANDOM 76.3 MG/DL Normal [facility] Comment on above: Result Comment: NO N ORMAL VALUES ESTABLISHED FOR RANDOM SPECIMENS Performed By: #### M CRAT #### [place] [address] TSH,REFLEX FREE T4on 021 TSH,REFLEX FREE T4 6.890 uIU/ML High 0.46-4.68 [facility] Comment on above: Result Comment: Test ing performed at [place] [address] Performed By: #### H EMOG, CMPF, LIP2, RTSH, T42 #### [place] [address] CMP FASTINGon 05-15-2020 A:G RATIO 1.2 RATIO Low 1.3-2.2 [facility] Comment on above: Performed By: #### H EMOG, CMPF, LIP2, RTSH, T42 #### [place] [address] ALBUMIN 4.1 G/dl Normal 3.5-5.0 [facility] Comment on above: Performed By: #### H EMOG, CMPF, LIP2, RTSH, T42 #### [place] [address] ALP [Catalytic activity/Vol] 103 U/L Normal 38-126 [facility] Comment on above: Performed By: #### H EMOG, CMPF, LIP2, RTSH, T42 #### [place] [address] ALT [Catalytic activity/Vol] 15 U/L Normal <35 [facility] Comment on above: Performed By: #### H EMOG, CMPF, LIP2, RTSH, T42 #### Testing performed at [place] [id number] AST [Catalytic activity/Vol] 42 U/L High 14-36 [facility] Comment on above: Performed By: #### H EMOG, CMPF, LIP2, RTSH, T42 #### Testing performed at [place] [id number] Bilirubin [Mass/Vol] 0.2 mg/dL Normal 0.2-1.3 [facility] Comment on above: Performed By: #### H EMOG, CMPF, LIP2, RTSH, T42 #### Testing performed at [place] [id number] Calcium [Mass/Vol] 9.3 mg/dL Normal 8.4-10.2 [facility] Comment on above: Performed By: #### H EMOG, CMPF, LIP2, RTSH, T42 #### Testing performed at [place] [id number] Chloride [Moles/Vol] 111 mmol/L High 98-107 [facility] Comment on above: Result Comment: Plea note: Triglyceride levels of 600mg/dL or higher may positively bias chloride results by approximately 2.1 mmol Performed By: #### H EMOG, CMPF, LIP2, RTSH, T42 #### Testing performed at [place] [id number] CO2 [Moles/Vol] 17 mmol/L Critically low 22-30 [facility] Comment on above: Result Comment: CALL ED TO AND READ BACK BY DAVE CHATTERJEE AT 1115 ON 05.15.2020 Performed By: #### H EMOG, CMPF, LIP2, RTSH, T42 #### Testing performed at [place] [id number] Creatinine [Mass/Vol] 1.10 mg/dL Normal 0.7-1.2 [facility] Comment on above: Performed By: #### H EMOG, CMPF, LIP2, RTSH, T42 #### Testing performed at [place] [id number] EST. GFR, >60 Normal [facility] Comment on above: Performed By: #### H EMOG, CMPF, LIP2, RTSH, T42 #### Testing performed at [place] [id number] EST. GFR,Non 54 ml/min/1.73sq.m Normal [facility] Comment on above: Performed By: #### H EMOG, CMPF, LIP2, RTSH, T42 #### [place] [address] GFR Information Average GFR for 50-5 9 years old = 93. 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 Kidney failure, GFR = <15. The GFR estimate is not adjusted for extreme body surface area or acute process, nor has it been validated for women or ethnic groups other than and . Testing performed at [place] [address] Performed By: #### H EMOG, CMPF, LIP2, RTSH, T42 #### [place] [address] Glucose [Mass/Vol] 190 mg/dL High 70-100 [facility] Comment on above: Result Comment: NORMAL <100 mg/dL PREDIABETES 101-126 mg/dL DIABETES 126 mg/dL or higher Performed By: #### H EMOG, CMPF, LIP2, RTSH, T42 #### Testing performed at [place] [id number] Potassium [Moles/Vol] 3.7 mmol/L Normal 3.5-5.1 [facility] Comment on above: Performed By: #### H EMOG, CMPF, LIP2, RTSH, T42 #### [place] [address] Protein [Mass/Vol] 7.6 g/dL Normal 6.3-8.2 [facility] Comment on above: Performed By: #### H EMOG, CMPF, LIP2, RTSH, T42 #### [place] [address] Sodium [Moles/Vol] 138 mmol/L Normal 137-145 [facility] Comment on above: Performed By: #### H EMOG, CMPF, LIP2, RTSH, T42 #### [place] [address] Urea nitrogen [Mass/Vol] 24 mg/dL High 7-20 [facility] Comment on above: Performed By: #### H EMOG, CMPF, LIP2, RTSH, T42 #### [place] [address] HEMOGLOBIN A1Con 05-15-2020 Glucose [Mass/Vol] 240 mg/dL Normal [facility] Comment on above: Result Comment: Test ing performed at [place] [address] Performed By: #### H EMOG, CMPF, LIP2, RTSH, T42 #### [place] [address] HbA1c (Bld) [Mass fraction] 10.0 % High 0-6 [facility] Comment on above: Result Comment: NORMAL <5.7% PREDIABETES 5.7-6.4% DIABETES 6.5% OR HIGHER Performed By: #### H EMOG, CMPF, LIP2, RTSH, T42 #### [place] [address] LIPID PROFILEon 05-15-2020 Cholesterol [Mass/Vol] 228 mg/dL High 107-217 [facility] Comment on above: Performed By: #### H EMOG, CMPF, LIP2, RTSH, T42 #### [place] [address] Cholesterol in HDL [Mass/Vol] 36 mg/dL Normal 33-75 [facility] Comment on above: Performed By: #### H EMOG, CMPF, LIP2, RTSH, T42 #### [place] [address] Cholesterol in LDL [Mass/Vol] 161 mg/dL Normal [facility] Comment on above: Performed By: #### H EMOG, CMPF, LIP2, RTSH, T42 #### [place] [address] Cholesterol in VLDL [Mass/Vol] 31 mg/dL High 5.0-25 [facility] Comment on above: Performed By: #### H EMOG, CMPF, LIP2, RTSH, T42 #### [place] [address] Cholesterol.total/Erika sterol in HDL [Mass ratio] 6.33 {ratio} Normal [facility] Comment on above: Result Comment: RISK TOTAL/HDL RATIO MEN WOMEN 1/2 AVERAGE 3.43 3.27 AVERAGE 4.97 4.44 2X AVERAGE 9.55 7.05 3X AVERAGE 23.99 11.04 Testing performed at [place] [address] Performed By: #### H EMOG, CMPF, LIP2, RTSH, T42 #### [place] [address] Triglyceride [Mass/Vol] 157 mg/dL High 0-150 [facility] Comment on above: Performed By: #### H EMOG, CMPF, LIP2, RTSH, T42 #### [place] [address] MALB/CREAT RATIO,URINEon MALB/CREAT RATIO,URINE 18.8 mg MALB/g CREAT Normal 1.3 -30.0 [facility] Comment on above: Result Comment: Test ing performed at [place] [address] Performed By: #### M CRAT #### [place] [address] MICROALBUMIN,RANDOM URINE 9.3 mg/L Normal 0-16.7 [facility] Comment on above: Performed By: #### M CRAT #### Testing performed at [facility] [address] [place] [address] URINE CREATININE RANDOM 49.4 MG/DL Normal [facility] Comment on above: Result Comment: NO N ORMAL VALUES ESTABLISHED FOR RANDOM SPECIMENS Performed By: #### M ADAM #### Testing performed at [facility] [address] [place] [address] XR RIBS LT PA Boby 0 XR [...] ANDRES Date: 2020-01-27 13:26 Normal [facility] XR FINGER MIN 2 VIEWSon XR FINGER [...] ANDRES Date: 2019-12-22 10:13 Normal [facility] BLOOD UREA NITROGENon 2019 Urea nitrogen [Mass/Vol] 16 mg/dL Normal 09-05 [facility] CREATININE,SERUMon 0 Creatinine [Mass/Vol] Average GFR for 50 -59 years old = 93. Normal [facility] Comment on above: Result Comment: Car Lub[employer] garfield Kidney disease, GFR = <60. Kidney failure, GFR = <15. The GFR estimate is not adjusted for extreme body surface area or acute process, nor has it been validated for women or ethnic groups other than and . Creatinine [Mass/Vol] mg/dL Normal [facility] Creatinine [Mass/Vol] 52 ml/min/1.73sq.m Normal [facility] Creatinine [Mass/Vol] 1.14 mg/dL Normal 0.7-1.2 [facility] FAX REQUESTon 03-08-2019 FAX TO Normal [facility] [place] [facility] BLOOD UREA NITROGENon 2019 Urea nitrogen [Mass/Vol] 23 mg/dL High -20 [facility] CREATININE,SERUMon 0 Creatinine [Mass/Vol] 38 ml/min/1.73sq.m Normal [facility] Creatinine [Mass/Vol] 47 ml/min/1.73sq.m [facility] Creatinine [Mass/Vol] Average GFR for 50 -59 years old = 93. Normal [facility] Comment on above: Result Comment: [employer] Kidney disease, GFR = <60. Kidney failure, GFR = <15. The GFR estimate is not adjusted for extreme body surface area or acute process, nor has it been validated for women or ethnic groups other than and . Creatinine [Mass/Vol] 1.49 mg/dL High 0.7-1.2 [facility] FAX REQUESTon 03-01-2019 FAX TO Normal [facility] [place] [facility] US DUPLEX EXTREMITY DVT LEFT on [...] 2.1 cm and may be reactive. Normal [facility] Culture,Bacterialon 01-06-20 18 Culture,Bacterial Test Name: Culture,Bacterial [...] 10 F Vancomycin S 1 F Normal [facility] Comment on above: Performed By: #### C ULT ####Unless otherwise noted, all testing performed by [facility], [place] [phone]: [id number] Director: Skylar Niño M.D. Progress Noteon 12-16-2017 Protein mass conc [facility] [address] [place] [address] NAME MEG GEORGES [facility] [id number] 1965 DATE PROGRESS NOTE Meg is seen [...] to use it. MARK MARQUEZ 12/16/2017 11:25 [id number] T 12/16/2017 15:16 BJZ/MODL Electronically Signed By Pili Gilliam DPM on 17 Dec 2017 19:19:18 GMT Normal [facility] Culture,Bacterialon 12-03-19 18 Culture,Bacterial Test Name: Culture,Bacterial Site: LEFT FOOT Culture Status: Final Culture Report: Normal Rob Gram Stain: No WBC's No Squamous Epithelial Cells No Organisms Seen Micro Source: Wound drainage Normal [facility] Comment on above: Performed By: #### C ULT ####Unless otherwise noted, all testing performed by [place] [address] [address], [place] [phone]: [id number] Director: Skylar Niño M.D. MRI LOWER EXT JOINT W/O CONT on 11-25-2017 MRI LOWER EXT JOINT W/O CONT Final Report Accession No: [id number] Performed: Nov 25 2017 8:32AM Examination: [...] NICHOLS M.D. Trans: n/a : cc: Normal [facility] Culture,Bacterialon 11-04-19 18 Culture,Bacterial Test Name: [...] F Trimeth/Sulfa S <= 20 F Normal [facility] Comment on above: Performed By: #### C ULT ####Unless otherwise noted, all testing performed by [facility] [facility] [place], [place] [phone]: [id number] Director: Skylar Niño M.D. Progress Noteon 08-29-2017 Protein mass conc [facility] [address] [facility] [place] [address] NAME MEG GEORGES [facility] [id number] 1965 DATE 08/29/2017 PROGRESS NOTE Ms. Georges [...] [facility]. MARK MILLER 08/29/2017 18:22 [id number] T 08/30/2017 08:46 [facility] Electronically Signed By Mark Anthony Mcdonald Dpm on 05 Sep 2017 23:32:42 GMT Normal [facility] Culture,Bacterialon 08-15-19 Culture,Bacterial Test Name: Culture,Bacterial Site: Left 1st MPJ ulcer/ celluli Culture Status: Final Culture Report: No Growth - Day 2 Gram Stain: Rare WBC's Few RBC's No Organisms Seen Micro Source: Wound Normal [facility] Comment on above: Performed By: #### C ULT #### Unless otherwise noted, all testing performed by [facility] [address] [place] [address] CLIA: [id number] [employer]ic: Skylar Niño M.D. Progress Noteon 06-13-2017 Protein mass conc [facility] [address] [place] [address] [facility] [id number] 1965 DATE 06/13/2017 PROGRESS NOTE SUBJECTIVE Ms. [...] She related understanding. MARK MILLER 06/13/2017 10:44 [id number] T 06/13/2017 11:35 KM/MODL Electronically Signed By Mark Anthony Mcdonald Dpm on 19 Jun 2017 14:55:04 GMT Normal [facility] Consultationon 06-07-2017 Consultation [facility] [address] [place] [address] MEG [facility] [id number] 1965 DATE 04/11/2017 CONSULTATION STOCK ROOM MANAGER MARTHA YAN DPM REFERRING PHYSICIAN: Neri Santa [...] any complications arise. MARK ELMORE 04/11/2017 16:16 [id number] T 04/11/2017 20:46 RCI/MODL cc: Neri Santa DO Electronically Signed By Martha Yan DPM on 16 Apr 2017 22:59:57 GMT Normal [facility] Protein mass conc [facility] [address] [place] [address] NAME MEG GEORGES [facility] [id number] 1965 DATE 06/06/2017 PROGRESS NOTE PROGRESS NOTE [...] any complications arise. MARK ELMORE 06/06/2017 22:10 [id number] T 06/07/2017 08:57 RCI/MODL Electronically Signed By Martah Yan DPM on 10 Jun 2017 00:05:11 GMT Normal [facility] CBC with Diffon 06-04-2017 Basophils #/vol (Bld) 0.0 K/mcL Normal 0-0.2 [facility] Comment on above: Performed By: #### C BCDIF, CMET, EDCTNI #### Unless otherwise noted, [place] [address] CLIA: [id number] [employer]: Skylar Niño M.D. Basophils/100 WBC (Bld) 0.5 % [facility] Comment on above: Performed By: #### C BCDIF, CMET, EDCTNI #### Unless otherwise noted, [place] [address] CLIA: [id number] [employer]: Skylar Niño M.D. Eosinophils #/vol (Bld) 0.2 K/mcL Normal 0-0.5 [facility] Comment on above: Performed By: #### C BCDIF, CMET, EDCTNI #### Unless otherwise noted, [place] [address] CLIA: [id number] [employer]: Skylar Niño M.D. Eosinophils/100 WBC (Bld) 2.5 % [facility] Comment on above: Performed By: #### C BCDIF, CMET, EDCTNI #### Unless otherwise noted, [place] [address] CLIA: [id number] [employer]ic: Skylar Niño M.D. Erythrocyte distribution width Ratio (RBC) 13.3 % Normal 10-14.4 [facility] Comment on above: Performed By: #### C BCDIF, CMET, EDCTNI #### Unless otherwise noted, [place] [address] CLIA: [id number] [employer]: Skylar Niño M.D. Hematocrit Volume Fraction (Bld) 39.7 % Normal 34.4-44.8 [facility] Comment on above: Performed By: #### C BCDIF, CMET, EDCTNI #### Unless otherwise noted, [place] [address] CLIA: [id number] [employer]: Skylar Niño M.D. Hemoglobin mass conc (Bld) 13.3 g/dL Normal 11.6-15.4 [facility] Comment on above: Performed By: #### C BCDIF, CMET, EDCTNI #### Unless otherwise noted, [place] [address] CLIA: [id number] [employer]: Skylar Niño M.D. Lymphocytes #/vol (Bld) 4.0 K/mcL High 1.0-3.7 [facility] Comment on above: Performed By: #### C BCDIF, CMET, EDCTNI #### Unless otherwise noted, [place] [address] CLIA: [id number] [employer]: Skylar Niño M.D. Lymphocytes/100 WBC (Bld) 42.6 % Normal [facility] Comment on above: Performed By: #### C BCDIF, CMET, EDCTNI #### Unless otherwise noted, all testing performed by [place] [id number] CLIA: [id number] [employer]: Skylar Niño M.D. MCH Entitic mass (RBC) 30.1 pg Normal 27.9-33.9 [facility] Comment on above: Performed By: #### C BCDIF, CMET, EDCTNI #### Unless otherwise noted, [place] [address] CLIA: [id number] [employer]: Skylar Niño M.D. MCHC mass conc (RBC) 33.6 g/dL Normal 33.1-35.1 [facility] Comment on above: Performed By: #### C BCDIF, CMET, EDCTNI #### Unless otherwise noted, [place] [address] CLIA: [id number] [employer]: Skylar Niño M.D. MCV Entitic volume (RBC) 89.7 fL Normal 82.6-98.9 [facility] Comment on above: Performed By: #### C BCDIF, CMET, EDCTNI #### Unless otherwise noted, [place] [address] CLIA: [id number] [employer]: Skylar Niño M.D. Monocytes #/vol (Bld) 0.6 K/mcL Normal 0.1-0.6 [facility] Comment on above: Performed By: #### C BCDIF, CMET, EDCTNI #### Unless otherwise noted, all testing performed by [place] [id number] CLIA: [id number] [employer]ic: Skylar Niño M.D. Monocytes/100 WBC (Bld) 5.9 % Normal [facility] Comment on above: Performed By: #### C BCDIF, CMET, EDCTNI #### Unless otherwise noted, [place] [address] CLIA: [id number] [employer]ic: Skylar Niño M.D. Neutrophils #/vol (Bld) 4.6 K/mcL Normal 1.2-6.9 [facility] Comment on above: Performed By: #### C BCDIF, CMET, EDCTNI #### Unless otherwise noted, [place] [address] CLIA: [id number] [employer]: Skylar Niño M.D. Platelet mean volume Entitic volume (Bld) 6.9 fL Low 7.0-10.6 [facility] Comment on above: Performed By: #### C BCDIF, CMET, EDCTNI #### Unless otherwise noted, all testing performed by [place] [id number] CLIA: [id number] [employer]ic: Skylar Niño M.D. Platelets #/vol (Bld) 377 K/mcL Normal 162-402 [facility] Comment on above: Performed By: #### C BCDIF, CMET, EDCTNI #### Unless otherwise noted, all testing performed by [place] [id number] CLIA: [id number] [employer]ic: Skylar Niño M.D. RBC #/vol (Bld) 4.42 M/mcL Normal 3.7-5.0 [facility] Comment on above: Performed By: #### C BCDIF, CMET, EDCTNI #### Unless otherwise noted, [place] [address] CLIA: [id number] [employer]ic: Skylar Niño M.D. Segmented Neut % 48.5 % Normal [facility] Comment on above: Performed By: #### C BCDIF, CMET, EDCTNI #### Unless otherwise noted, [place] [address] CLIA: [id number] [employer]ic: Skylar Niño M.D. WBC #/vol (Bld) 9.5 K/mcL Normal 3.4-10.6 [facility] Comment on above: Performed By: #### C BCDIF, CMET, EDCTNI #### Unless otherwise noted, [place] [address] CLIA: [id number] [employer]: Skylar Niño M.D. Comprehensive Metabolic Pane [facility] 06-04-2017 Albumin mass conc 3.8 g/dL Normal 3.2-5.2 [facility] [place] Comment on above: Performed By: #### C BCDIF, CMET, EDCTNI #### Unless otherwise noted, [place] [address] CLIA: [id number] [employer]: Skylar Niño M.D. ALP enzyme act/vol 128 U/L Normal 40-150 [facility] Comment on above: Performed By: #### C BCDIF, CMET, EDCTNI #### Unless otherwise noted, [place] [address] CLIA: [id number] [employer]ic: Skylar Niño M.D. ALT enzyme act/vol 43 U/L Normal 14-65 [facility] Comment on above: Result Comment: This test result might be falsely depressed or falsely elevated on samples drawn from patients taking Sulfasalazine and Sulfapyridine. Venipuncture should occur prior to taking either of these drugs. Performed By: #### C BCDIF, CMET, EDCTNI #### Unless otherwise noted, all testing performed by [place] [phone] CLIA: [id number] [employer]: Skylar Niño M.D. AST enzyme act/vol 20 U/L Normal 0-45 [facility] Comment on above: Result Comment: This test result might be falsely depressed or falsely elevated on samples drawn from patients taking Sulfasalazine and Sulfapyridine. Venipuncture should occur prior to taking either of these drugs. Performed By: #### C BCDIF, CMET, EDCTNI #### Unless otherwise noted, [place] [address] CLIA: [id number] [employer]ic: Skylar Niño M.D. Bilirubin mass conc 0.3 mg/dL Normal 0.3-1.2 [facility] Comment on above: Performed By: #### C BCDIF, CMET, EDCTNI #### Unless otherwise noted, [place] [address] CLIA: [id number] [employer]ic: Skylar Niño M.D. Calcium mass conc 9.4 mg/dL Normal 8.4-10.2 [facility] [place] Comment on above: Performed By: #### C BCDIF, CMET, EDCTNI #### Unless otherwise noted, all testing performed by [place] [id number] CLIA: [id number] [employer]ic: Skylar Niño M.D. Chloride molar conc 100 mmol/L Normal 98-108 [facility] Comment on above: Performed By: #### C BCDIF, CMET, EDCTNI #### Unless otherwise noted, [place] [address] CLIA: [id number] [employer]ic: Skylar Niño M.D. CO2 molar conc 26 mmol/L Normal 21-32 [facility] Comment on above: Performed By: #### C BCDIF, CMET, EDCTNI #### Unless otherwise noted, [place] [address] CLIA: [id number] [employer]ic: Skylar Niño M.D. Creatinine mass conc 1.10 mg/dL Normal 0.40-1.10 [facility] Comment on above: Performed By: #### C BCDIF, CMET, EDCTNI #### Unless otherwise noted, [place] [address] CLIA: [id number] [employer]ic: Skylar Niño M.D. GFR/1.73 sq M predicted among blacks MDRD vol rate/area (S/P/Bld) mL/min/{1.73_m2} Normal [facility] Comment on above: Result Comment: Afri can Kitt[place] GFR Calc Performed By: #### C BCDIF, CMET, EDCTNI #### Unless otherwise noted, all testing performed by [address] [address] CLIA: [id number] [employer]ic: Skylar Niño M.D. GFR/1.73 sq M predicted among non-blacks MDRD vol rate/area (S/P/Bld) 52 mL/min/{1.73_m2} Low >60 [facility] Comment on above: Result Comment: Non- GFR [...] Unless otherwise noted, [place] [address] CLIA: [id number] [employer]ic: Skylar Niño M.D. Glucose mass conc 244 mg/dL High 70-99 [facility] [place] Comment on above: Result Comment: This test result might be falsely depressed or falsely elevated on samples drawn from patients taking Sulfasalazine and Sulfapyridine. Venipuncture should occur prior to taking either of these drugs. Performed By: #### C BCDIF, CMET, EDCTNI #### Unless otherwise noted, [place] [address] CLIA: [id number] [employer]ic: Skylar Niño M.D. Potassium molar conc 4.2 mmol/L Normal 3.5-5.1 [facility] Comment on above: Performed By: #### C BCDIF, CMET, EDCTNI #### Unless otherwise noted, [place] [address] CLIA: [id number] [employer]ic: Skylar Niño M.D. Protein mass conc 7.8 g/dL Normal 6.0-8.0 [facility] [place] Comment on above: Performed By: #### C BCDIF, CMET, EDCTNI #### Unless otherwise noted, [place] [address] CLIA: [id number] [employer]ic: Skylar Niño M.D. Sodium molar conc 135 mmol/L Normal 135-145 [facility] [place] Comment on above: Performed By: #### C BCDIF, CMET, EDCTNI #### Unless otherwise noted, [place] [address] CLIA: [id number] [employer]ic: Skylar Niño M.D. Urea nitrogen mass conc 15 mg/dL Normal 8-25 [facility] Comment on above: Performed By: #### C BCDIF, CMET, EDCTNI #### Unless otherwise noted, all testing performed by [place] [phone] CLIA: [id number] [employer]ic: Skylar Niño M.D. ED Cardiac Troponin-Ion 05-18 Troponin I.cardiac mass conc ng/mL Normal < 45 [facility] Comment on above: Result Comment: Elev [...] Unless otherwise noted, [place] [address] CLIA: [id number] [employer]: Skylar Niño M.D. RIBS UNILATERALon 06-04-2017 RIBS UNILATERAL Final Report Accession No: [id number] Performed: Jun 04 2017 9:56PM Examination: [...] TANNER M.D. Trans: istumb : cc: Normal [facility] Culture,Bacterialon 04-23-19 18 Culture,Bacterial Test Name: [...] F Vancomycin S <= 0.5 F Normal [facility] Comment on above: Performed By: #### C ULT #### Unless otherwise noted, all testing performed by [facility] [address] [place] [address] CLIA: [id number] [employer]ic: Skylar Niño M.D. Progress Noteon 04-22-2017 Protein mass conc [address] [place] [address] NAME MEG GEOR[facility]ES [facility] [id number] 1965 DATE PROGRESS NOTE Meg seen today [...] in a week. MARK MARQUEZ 04/22/2017 12:51 [id number] T 04/22/2017 16:19 BJZ/MODL Electronically Signed By Pili Gilliam DPM on 23 Apr 2017 17:35:14 GMT Normal [facility] Culture,Bacterialon 04-19-19 18 Culture,Bacterial Test Name: [...] 10 F Vancomycin S 1 F Normal [facility] Comment on above: Performed By: #### C ULT #### Unless otherwise noted, all testing performed by [address] [place], [place] [address] CLIA: [id number] [employer]ic: Skylar Niño M.D. Vital Signs Date Time Vital Sign Value Performing Clinician Alejandro douglas 08-10-2021 20:30-0400 Diastolic blood pressure 88 mm[Hg] Anthony Lucero DO Work Phone: [facility] [employer] 08-10-2021 20:30-0400 Heart rate 88 /min Anthony Lucero DO Work Phone: [facility] 08-10-2021 20:30-0400 Respiratory rate 18 /min Anthony Lucero DO Work Phone: [facility] [employer] [facility] 08-10-2021 20:30-0400 SaO2% (BldA) [Mass fraction] 100 % Anthony Lucero DO Work Phone: [facility] [employer] 08-10-2021 20:30-0400 Systolic blood pressure 144 mm[Hg] Anthony Lucero DO Work Phone: [facility] [employer] 08-10-2021 18:00-0400 Body temperature 100 [degF] Anthony Lucero DO Work Phone: [facility] [employer] 08-10-2021 13:33-0400 Body height 165.1 cm Anthony Lucero DO Work Phone: [facility] [employer] 08-08-2021 06:00-0400 Body mass index (BMI) [Ratio] 21.72 kg/m2 Anthony Lucero DO Work Phone: [facility] [employer] 08-08-2021 06:00-0400 Body weight 59.2 kg Anthony Lucero DO Work Phone: [facility] [employer] 07-14-2021 14:00-0400 Diastolic blood pressure 79 mm[Hg] Anthony Villarreal MD Work Phone: [facility] [employer] 07-14-2021 14:00-0400 Heart rate 100 /min Anthony Villarreal MD Work Phone: [facility] [employer] 07-14-2021 14:00-0400 SaO2% (BldA) [Mass fraction] 94 % Anthony Villarreal MD Work Phone: [facility] [employer] 07-14-2021 14:00-0400 Systolic blood pressure 143 mm[Hg] Anthony Villarreal MD Work Phone: [facility] [employer] 07-14-2021 11:15-0400 Respiratory rate 16 /min Anthony Villarreal MD Work Phone: [facility] [employer] 07-13-2021 20:37-0400 Body height 165.1 cm Anthony Villarreal MD Work Phone: [facility] [employer] 07-13-2021 20:37-0400 Body mass index (BMI) [Ratio] 23.3 kg/m2 Anthony Villarreal MD Work Phone: [facility] 07-13-2021 20:37-0400 Body weight 63.5 kg Anthony Villarreal MD Work Phone: [facility] 07-13-2021 20:20-0400 Body temperature 97.5 [degF] Anthony Villarreal MD Work Phone: [facility] [employer] 07-10-2021 10:55-0400 Body temperature 97.81 [degF] Wil [place] MD Work Phone: [facility] 07-10-2021 10:55-0400 Diastolic blood pressure 54 mm[Hg] Wil [place] MD Work Phone: [facility] 07-10-2021 10:55-0400 Heart rate 88 /min Wil [place] MD Work Phone: [facility] 07-10-2021 10:55-0400 Respiratory rate 14 /min Wil [place] MD Work Phone: [facility] 07-10-2021 10:55-0400 SaO2% (BldA) [Mass fraction] 98 % Wil [place] MD Work Phone: [facility] 07-10-2021 10:55-0400 Systolic blood pressure 102 mm[Hg] Wil [place] MD Work Phone: [facility] 07-10-2021 06:00-0400 Body mass index (BMI) [Ratio] 26.91 kg/m2 Wil [place] MD Work Phone: [facility] 07-10-2021 06:00-0400 Body weight 73.35 kg Wil [place] MD Work Phone: [facility] [employer] 07-05-2021 15:43-0400 Body height 165.1 cm Wil [place] MD Work Phone: [facility] 06-28-2021 09:45-0400 Diastolic blood pressure 85 mm[Hg] Chris Boothe MD Work Phone: [facility] 06-28-2021 09:45-0400 Heart rate 106 /min Chris Boothe MD Work Phone: [facility] 06-28-2021 09:45-0400 Respiratory rate 25 /min Chris Boothe MD Work Phone: [facility] 06-28-2021 09:45-0400 SaO2% (BldA) [Mass fraction] 98 % Chris Boothe MD Work Phone: [phone] [place] [address] 06-28-2021 09:45-0400 Systolic blood pressure 180 mm[Hg] Chris Boothe MD Work Phone: [phone](522)[phone] [place] [address] 06-28-2021 07:41-0400 Body mass index (BMI) [Ratio] 24.13 kg/m2 Chris Boothe MD Work Phone: 3([phone] [place] [address] 06-28-2021 07:41-0400 Body weight 65.77 kg Chris Boothe MD Work Phone: 9(619)[phone] [place] [address] 06-28-2021 03:49-0400 Body temperature 97.9 [degF] Chris Boothe MD Work Phone: [phone](626)[phone] [place] [address] 05-11-2021 15:31-0400 Diastolic blood pressure 63 mm[Hg] [facility] Mmp-Ic[facility] 05-11-2021 15:31-0400 Heart rate 84 /min [facility] Mmp-Ic4 [facility] 05-11-2021 15:31-0400 Respiratory rate 16 /min [facility] Mmp-Ic4 [facility] 05-11-2021 15:31-0400 Systolic blood pressure 132 mm[Hg] [facility] Mmp-Ic4 [facility] 05-11-2021 13:31-0400 Body temperature 97.2 [degF] [facility] Mmp-Ic4 [facility] 05-01-2021 14:36-0400 Body mass index (BMI) [Ratio] 25.81 kg/m2 Tia Baugh PA-C Work Phone: [facility] 05-01-2021 14:36-0400 Body temperature 98.29 [degF] Tia Baugh PA-C Work Phone: [facility] 05-01-2021 14:36-0400 Body weight 70.35 kg Tia Baugh PA-C Work Phone: [facility] 05-01-2021 14:36-0400 Diastolic blood pressure 88 mm[Hg] Tia Baugh PA-C Work Phone: [facility] 05-01-2021 14:36-0400 Heart rate 77 /min Tia Baugh PA-C Work Phone: [facility] 05-01-2021 14:36-0400 Respiratory rate 16 /min Tia Baugh PA-C Work Phone: [facility] 05-01-2021 14:36-0400 SaO2% (BldA) [Mass fraction] 97 % Tia Baugh PA-C Work Phone: [facility] 05-01-2021 14:36-0400 Systolic blood pressure 137 mm[Hg] Tia Baugh PA-C Work Phone: [facility] 04-17-2021 11:06-0500 Diastolic blood pressure 79 mm[Hg] Jef Sierra Jr., DPM Work Phone: [facility] 04-17-2021 11:06-0500 Heart rate 99 /min Jef Sierra Jr., DPM Work Phone: [facility] 04-17-2021 11:06-0500 Systolic blood pressure 123 mm[Hg] Jef Sierra Jr., DPM Work Phone: [facility] 04-17-2021 10:49-0500 Body temperature 98.2 [degF] Jef Sierra Jr., DPM Work Phone: [facility] 03-27-2021 11:06-0500 Body temperature 97.9 [degF] Jef Mariela Jr., DPM Work Phone: [facility] 03-27-2021 11:06-0500 Diastolic blood pressure 88 mm[Hg] Jef Mariela Jr., DPM Work Phone: [facility] 03-27-2021 11:06-0500 Heart rate 89 /min Jef Mariela Jr., DPM Work Phone: [facility] 03-27-2021 11:06-0500 Systolic blood pressure 146 mm[Hg] Jef Mariela Jr., DPM Work Phone: [facility] 02-20-2021 09:55-0500 Diastolic blood pressure 85 mm[Hg] Jef Mariela Jr., DPM Work Phone: [facility] 02-20-2021 09:55-0500 Heart rate 89 /min Jef Mariela Jr., DPM Work Phone: [facility] 02-20-2021 09:55-0500 Systolic blood pressure 154 mm[Hg] Jef Mariela Jr., DPM Work Phone: [facility] 02-20-2021 09:52-0500 Body temperature 97.59 [degF] Jef Mariela Jr., DPM Work Phone: [facility] 2021 11:17-0500 Body temperature 97.7 [degF] Jef Mariela Jr., DPM Work Phone: [facility] 2021 11:17-0500 Diastolic blood pressure 80 mm[Hg] Jef Mariela Jr., DPM Work Phone: [facility] 2021 11:17-0500 Heart rate 96 /min Jef Mariela Jr., DPM Work Phone: [facility] 2021 11:17-0500 Systolic blood pressure 157 mm[Hg] Jef Mariela Jr., DPM Work Phone: [facility] 01-30-2021 10:31-0500 Body temperature 98.4 [degF] Jef Mariela Jr., DPM Work Phone: [facility] 01-30-2021 10:31-0500 Diastolic blood pressure 81 mm[Hg] Jef Mariela Jr., DPM Work Phone: [facility] 01-30-2021 10:31-0500 Heart rate 98 /min Jef Mariela Jr., DPM Work Phone: [facility] 01-30-2021 10:31-0500 Systolic blood pressure 156 mm[Hg] Jef Mariela Jr., DPM Work Phone: [facility] 01-24-2021 15:58-0500 Body temperature 97.7 [degF] Jef Mariela Jr., DPM Work Phone: [facility] 01-24-2021 15:58-0500 Diastolic blood pressure 80 mm[Hg] Jef Mariela Jr., DPM Work Phone: [facility] 01-24-2021 15:58-0500 Heart rate 101 /min Jef Mariela Jr., DPM Work Phone: [facility] 01-24-2021 15:58-0500 Systolic blood pressure 163 mm[Hg] Jef Mariela Jr., DPM Work Phone: [facility] 01-16-2021 10:58-0500 Body temperature 97.7 [degF] Jef Mariela Jr., DPM Work Phone: [facility] 01-16-2021 10:58-0500 Diastolic blood pressure 83 mm[Hg] Jef Mariela Jr., DPM Work Phone: [facility] 01-16-2021 10:58-0500 Heart rate 102 /min Jef Mariela Jr., DPM Work Phone: [facility] 01-16-2021 10:58-0500 Systolic blood pressure 143 mm[Hg] Jef Mariela Jr., DPM Work Phone: [facility] 01-09-2021 08:43-0500 Body temperature 97.2 [degF] Jef Mariela Jr., DPM Work Phone: [facility] 01-09-2021 08:43-0500 Diastolic blood pressure 81 mm[Hg] Jef Mariela Jr., DPM Work Phone: [facility] 01-09-2021 08:43-0500 Heart rate 99 /min Jef Mariela Jr., DPM Work Phone: [facility] 01-09-2021 08:43-0500 Systolic blood pressure 156 mm[Hg] Jef Mariela Jr., DPM Work Phone: [facility] 01-02-2021 09:09-0500 Body temperature 97.7 [degF] Jef Mariela Jr., DPM Work Phone: [facility] 01-02-2021 09:09-0500 Diastolic blood pressure 85 mm[Hg] Jef Mariela Jr., DPM Work Phone: [facility] 01-02-2021 09:09-0500 Heart rate 83 /min Jef Mariela Jr., DPM Work Phone: [facility] 01-02-2021 09:09-0500 Systolic blood pressure 149 mm[Hg] Jef Mariela Jr., DPM Work Phone: [facility] 12-19-2020 11:17-0400 Body height 165.1 cm Jef Mariela Jr., DPM Work Phone: [facility] 12-19-2020 11:17-0400 Body mass index (BMI) [Ratio] 25.46 kg/m2 Jef Mariela Jr., DPM Work Phone: [facility] 12-19-2020 11:17-0400 Body temperature 97.2 [degF] Jef Mariela Jr., DPM Work Phone: [facility] 12-19-2020 11:17-0400 Body weight 69.4 kg Jef Mariela Jr., DPM Work Phone: [facility] 12-19-2020 11:17-0400 Diastolic blood pressure 84 mm[Hg] Jef Mariela Jr., DPM Work Phone: [facility] 12-19-2020 11:17-0400 Heart rate 111 /min Jef Mariela Jr., DPM Work Phone: [facility] 12-19-2020 11:17-0400 Systolic blood pressure 144 mm[Hg] Jef Mariela Jr., DPM Work Phone: [facility] 10-17-2020 08:11-0400 Body height 153.7 cm Jef Mariela Jr., DPM Work Phone: [facility] 10-17-2020 08:11-0400 Body mass index (BMI) [Ratio] 29.39 kg/m2 Jef Mariela Jr., DPM Work Phone: [facility] 10-17-2020 08:11-0400 Body temperature 97.2 [degF] Jef Mariela Jr., DPM Work Phone: [facility] 10-17-2020 08:11-0400 Body weight 69.4 kg Jef Mariela Jr., DPM Work Phone: [facility] 10-17-2020 08:11-0400 Diastolic blood pressure 79 mm[Hg] Jef Mariela Jr., DPM Work Phone: [facility] 10-17-2020 08:11-0400 Heart rate 82 /min Jef Mariela Jr., DPM Work Phone: [facility] 10-17-2020 08:11-0400 Systolic blood pressure 133 mm[Hg] Jef Sierra Jr., DPM Work Phone: [facility] 10-03-2020 11:22-0400 Diastolic blood pressure 83 mm[Hg] [address] 10-03-2020 11:22-0400 Heart rate 84 /min [address] 10-03-2020 11:22-0400 Respiratory rate 16 /min [address] 10-03-2020 11:22-0400 Systolic blood pressure 174 mm[Hg] [address] 10-03-2020 09:15-0400 Body temperature 97.9 [degF] [address] 09-26-2020 11:50-0400 Body height 165.1 cm Franck Mtz MD Work Phone: [facility] 09-26-2020 11:50-0400 Body mass index (BMI) [Ratio] 25.96 kg/m2 Franck Mtz MD Work Phone: [facility] 09-26-2020 11:50-0400 Body weight 70.76 kg Franck Mtz MD Work Phone: [facility] 09-26-2020 11:50-0400 Diastolic blood pressure 67 mm[Hg] Franck Mtz MD Work Phone: [facility] 09-26-2020 11:50-0400 Heart rate 105 /min Franck Mtz MD Work Phone: [facility] 09-26-2020 11:50-0400 Systolic blood pressure 142 mm[Hg] Franck Mtz MD Work Phone: [facility] 09-21-2020 13:31-0400 Diastolic blood pressure 68 mm[Hg] [facility] 09-21-2020 13:31-0400 Heart rate 89 /min [address] 09-21-2020 13:31-0400 Respiratory rate 16 /min [address] 09-21-2020 13:31-0400 Systolic blood pressure 154 mm[Hg] [address] 09-21-2020 11:36-0400 Body temperature 97.9 [degF] [address] 09-14-2020 14:39-0400 Body temperature 99.39 [degF] Jef Sierra Jr., DPM Work Phone: [facility] 09-14-2020 14:39-0400 Diastolic blood pressure 85 mm[Hg] Jef Sierra Jr., DPM Work Phone: [facility] 09-14-2020 14:39-0400 Heart rate 98 /min Jef Sierra Jr., DPM Work Phone: [facility] 09-14-2020 14:39-0400 Systolic blood pressure 145 mm[Hg] Jef Sierra Jr., DPM Work Phone: [facility] 09-13-2020 09:34-0400 Body height 165.1 cm Luis Miguel Kaur MD Work Phone: [facility] 09-13-2020 09:34-0400 Body mass index (BMI) [Ratio] 25.66 kg/m2 Luis Miguel Kaur MD Work Phone: [facility] 09-13-2020 09:34-0400 Body weight 69.94 kg Luis Miguel Kaur MD Work Phone: [facility] 09-13-2020 09:34-0400 Diastolic blood pressure 74 mm[Hg] Luis Miguel Kaur MD Work Phone: [facility] 09-13-2020 09:34-0400 Heart rate 89 /min Luis Miguel Kaur MD Work Phone: [facility] 09-13-2020 09:34-0400 Systolic blood pressure 158 mm[Hg] Luis Miguel Kaur MD Work Phone: [facility] 04-18-2020 08:16-0500 Body height 153.7 cm Jef Sierra Jr., DPM Work Phone: [facility] 04-18-2020 08:16-0500 Body mass index (BMI) [Ratio] 29.39 kg/m2 Jef Sierra Jr., DPM Work Phone: [facility] 04-18-2020 08:16-0500 Body weight 69.4 kg Jef Sierra Jr., DPM Work Phone: [facility] 04-18-2020 08:16-0500 Diastolic blood pressure 86 mm[Hg] Jef Sierra Jr., DPM Work Phone: [facility] 04-18-2020 08:16-0500 Systolic blood pressure 136 mm[Hg] Jef Sierra Jr., DPM Work Phone: [facility] 05-29-2018 09:31-0400 BMI (Body Mass Index) 25.29 kg/m2 [facility] 05-29-2018 09:31-0400 Body Temperature 98.4 [degF] [facility] 05-29-2018 09:31-0400 BP Diastolic 90 mm[Hg] [facility] 05-29-2018 09:31-0400 BP Systolic 159 mm[Hg] [facility] 05-29-2018 09:31-0400 Height 165.1 cm [facility] 05-29-2018 09:31-0400 Pulse (Heart Rate) 102 /min [facility] 05-29-2018 09:31-0400 Pulse Oximetry 100 % [facility] 05-29-2018 09:31-0400 Respiratory Rate 16 /min [facility] 05-29-2018 09:31-0400 Weight 68.95 kg Jonathan [facility] 01-01-2018 14:05-0500 BMI (Body Mass Index) 25.07 kg/m2 [facility] Work Phone: 01-01-2018 14:05-0500 BP Diastolic 75 mm[Hg] [facility] Work Phone: 01-01-2018 14:05-0500 BP Systolic 121 mm[Hg] [facility] Work Phone: 01-01-2018 14:05-0500 Height 166.4 cm [facility] Work Phone: 01-01-2018 14:05-0500 Pulse (Heart Rate) 108 /min [facility] Work Phone: 01-01-2018 14:05-0500 Weight 69.4 kg [facility] Work Phone: 04-07-2017 12:24-0500 BP Diastolic 67 mm[Hg] [facility] 04-07-2017 12:24-0500 BP Systolic 100 mm[Hg] [facility] 04-07-2017 12:24-0500 Pulse (Heart Rate) 98 /min [facility] 04-07-2017 12:22-0500 BMI (Body Mass Index) 26.49 kg/m2 [facility] 04-07-2017 12:22-0500 Height 165.1 cm [facility] 04-07-2017 12:22-0500 Respiratory Rate 16 /min [facility] 04-07-2017 12:22-0500 Weight 72.21 kg [facility] Encounters Encounter Date Encounter Type Care Provider Facility Start: 11-23-2024 End: 11-23-2024 Telephone encounter Mahin Bernal MD Work Phone: [facility] Start: 11-22-2024 End: 11-22-2024 Telephone encounter Jay Alexsander Chávez CERTIFIED CYTOTECHNOLOGIST Work Phone: [facility] Start: 09-27-2024 End: 09-27-2024 Bamboo flowsheet Skylarjuliette Terryhler DO Work Phone: [facility] Start: 09-27-2024 End: 09-27-2024 Bamboo flowsheet Skylar Yoel Zahler DO Work Phone: [facility] Start: 09-27-2024 End: 09-27-2024 ambulatory SKYLAR WHITFIELD Not Available Start: 08-27-2024 End: 08-27-2024 Bamboo flowsheet Ramona Northeim PA Work Phone: [facility] Start: 08-27-2024 End: 08-27-2024 Bamboo flowsheet Ramona Northeim PA Work Phone: [facility] Start: 08-27-2024 End: 09-06-2024 Orders Only Ramona Northeim PA Work Phone: [facility] Unsolicited Start: 08-27-2024 End: 08-27-2024 Office outpatient visit 25 minutes Ramona Northeim PA Work Phone: [facility] Comment on above: Other atopic [...] 04-16-2024 Emergency department patient visit Garfield Rodriguez Facility:[facility] Start: 02-23-2024 ambulatory Jami L Jemima Facility: [facility] Start: 11-21-2023 End: 11-21-2023 ambulatory Jami L Jemima Facility:[facility] Start: 10-24-2023 End: 10-24-2023 ambulatory Jami L Jemima Facility:[facility] Start: 10-10-2023 ambulatory Jami Jemima [facility] Start: 05-27-2023 End: 05-27-2023 ambulatory ALAA ALAHMAD Facility:[facility] Start: 03-29-2023 Clinisync Result Encounter Rufus Perez MD Work Phone: [facility] Unsolicited Start: 03-29-2023 Clinisync Result Encounter Rufus Perez MD Work Phone: [facility] Unsolicited Start: 11-22-2022 End: 11-25-2022 ambulatory GANGA Santiago JANETTE [facility] Start: 04-02-2022 End: 04-05-[address] [facility] Start: 04-02-2022 End: 04-04-2022 Subsequent hospital visit by physician Vineet McH Xr [facility] Comment on above: S/P cervical spinal fusion Start: 12-04-2021 End: 12-06-2021 Subsequent hospital visit by physician Vineet C-Arm 1 [facility] Comment on above: Atlantoaxial instabi lity; S/P cervical spinal fusion Start: 11-22-2021 End: 11-22-2021 ambulatory Rufus Perez Facility:[facility] Start: 11-22-2021 End: 11-22-2021 ambulatory II Rufus Perez Work Phone: [facility] Work Phone: Start: 11-22-2021 End: 11-22-2021 Departed Referred II Rufus Perez Work Phone: [facility] [place] Start: 08-20-2021 End: 08-22-2021 Evaluation and management of inpatient JERRY POZO Facility:[facility] Start: 07-14-2021 End: 08-10-2021 Evaluation and management of inpatient Anthony Lucero DO Work Phone: [facility] Start: 07-13-2021 End: 07-14-2021 Emergency department patient visit Anthony Villarreal MD Work Phone: [facility] Comment on above: COVID-19 (Primary Dx ); Pneumonia of left lower lobe due to infectious organism; Hypokalemia; Hypomagnesemia; 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 Start: 06-28-2021 End: 07-10-2021 Evaluation and management of inpatient Wil Martinez MD Work Phone: [facility] Start: 06-28-2021 End: 06-28-2021 Emergency department patient visit Chris Boothe MD Work Phone: [facility] Comment on above: Non-intractable vomi ting with nausea, unspecified vomiting type (Primary Dx); Altered mental status, unspecified altered mental status type; Leukocytosis, unspecified type Start: 05-18-2021 End: 05-29-2021 Evaluation and management of inpatient [facility] Start: 05-18-2021 End: 05-18-2021 Emergency department patient visit [facility] Start: 05-15-2021 ambulatory [facility] Facilit y:[facility] Start: 05-11-2021 ambulatory SANIA WELDON Facility: [facility] Start: 05-11-2021 End: 05-11-2021 ambulatory [facility] Mmp-Ic4 [facility] Start: 05-11-2021 End: 05-11-2021 Patient encounter procedure Sania Weldon DO Work Phone: [facility] Comment on above: CIDP (chronic inflam matory demyelinating polyneuropathy) (Primary Dx) Start: 05-07-2021 ambulatory [facility] Facilit y:[facility] Start: 05-01-2021 End: 05-01-2021 ambulatory [facility] Start: 05-01-2021 End: 05-01-2021 Office outpatient visit 15 minutes Tia Baugh PA-C Work Phone: [facility] [place] Comment on above: Partial thickness bu rn of single finger of right hand excluding thumb, initial encounter (Primary Dx); Wound infection; Laceration of right thumb, initial encounter Start: 04-25-2021 ambulatory NERI SANTA Facilit y:[facility] Start: 04-17-2021 End: 04-17-2021 ambulatory JEF SIERRA JR. [facility] Start: 04-17-2021 End: 04-17-2021 Office outpatient visit 15 minutes Jef Sierra DPM Work Phone: [facility] Comment on above: Chronic ulcer of gre at toe of left foot with fat layer exposed (HCC) (Primary Dx) Start: 04-12-2021 ambulatory NERI SANTA Facilit y:[facility] Start: 04-12-2021 ambulatory NERI SANTA Facilit y:[facility] Start: 04-06-2021 End: 04-06-2021 Evaluation and management of inpatient PCP PCP UNKNOWN~[id number] PHYSICIAN PHYSICIAN [facility] Start: 04-06-2021 End: 04-07-2021 Evaluation and management of inpatient VAISHALI ERAZO [facility] Start: 04-05-2021 ambulatory NERI SANTA Facilit y:[facility] Start: 03-27-2021 End: 03-27-2021 ambulatory JEF SIERRA JR. [facility] Start: 03-27-2021 End: 03-27-2021 Office outpatient visit 15 minutes Jef Sierra DPM Work Phone: [facility] Comment on above: Chronic ulcer of gre at toe of left foot with fat layer exposed (HCC) (Primary Dx) Start: 03-07-2021 ambulatory KRYSTYNA BUSBY Facility :[facility] Start: 03-06-2021 End: 03-06-2021 ambulatory JEF SIERRA JR. [facility] Start: 03-01-2021 ambulatory NERI Parker [facility] Facilit y:[facility] Start: 02-21-2021 ambulatory NERI P HOUSE Facilit y:[facility] Start: 02-20-2021 End: 02-20-2021 ambulatory JEF VIEIRALON . [facility] Start: 02-20-2021 End: 02-20-2021 Patient encounter procedure Jef Sierra DPM Work Phone: [facility] Comment on above: Chronic ulcer of gre at toe of left foot with fat layer exposed (HCC) Start: 02-15-2021 ambulatory NERI P HOUSE Facilit y:[facility] Start: 02-14-2021 ambulatory NERI P HOUSE Facilit y:[facility] Start: 02-12-2021 ambulatory NERI P HOUSE Facilit y:[facility] Start: 02-07-2021 ambulatory NERI P HOUSE Facilit y:[facility] Start: 2021 End: 2021 ambulatory JEF VIEIRALON . [facility] Start: 2021 End: 2021 Patient encounter procedure Jef Velasquezn DPM Work Phone: [facility] Comment on above: Ulcer of left foot w ith fat layer exposed (HCC) (Primary Dx) Start: 01-30-2021 End: 01-30-2021 ambulatory JEF VIEIRALON . [facility] Start: 01-30-2021 End: 01-30-2021 Patient encounter procedure Jef Velasquezn DPM Work Phone: [facility] Comment on above: Ulcer of left foot w ith fat layer exposed (HCC) (Primary Dx) Start: 01-24-2021 End: 01-24-2021 ambulatory JEF VELASQUEZN . [facility] Start: 01-24-2021 End: 01-24-2021 Patient encounter procedure Jef Vieiralon DPM Work Phone: [facility] Comment on above: Ulcer of left foot w ith fat layer exposed (HCC) (Primary Dx) Start: 01-23-2021 ambulatory NERI P HOUSE Facilit y:[facility] Start: 01-16-2021 End: 01-16-2021 ambulatory JEF SIERRA JR. [facility] Start: 01-16-2021 End: 01-16-2021 Patient encounter procedure Jef Dillon DPM Work Phone: [facility] Comment on above: 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) (Primary Dx) Start: 01-10-2021 ambulatory NERI SANTA Facilit y:[facility] Start: 01-09-2021 End: 01-09-2021 ambulatory JEFCynthia SIERRA JR. [facility] Start: 01-09-2021 End: 01-09-2021 Patient encounter procedure Jef Sierra DPM Work Phone: [facility] Comment on above: Ulcer of left foot w ith fat layer exposed (HCC) (Primary Dx) Start: 01-02-2021 End: 01-02-2021 ambulatory JEFCynthia SIERRA JR. [facility] Start: 01-02-2021 End: 01-02-2021 Patient encounter procedure Jefhilary Vieiralon DPM Work Phone: [facility] Comment on above: Non-pressure chronic ulcer of other part of left foot with fat layer exposed (HCC) (Primary Dx); Ulcer of left foot with fat layer exposed (HCC) Start: 01-01-2021 ambulatory NERI SANTA Facilit y:[facility] Start: 12-27-2020 ambulatory NERI SANTA Facilit y:[facility] Start: 12-27-2020 ambulatory SHARON Harrison cility:[facility] Start: 12-26-2020 ambulatory SELF SELF Facility:[facility] Start: 12-19-2020 End: 12-19-2020 ambulatory JEF SIERRA JR. [facility] Start: 12-19-2020 End: 12-19-2020 Patient encounter procedure Jef Sierra DPM Work Phone: [facility] Comment on above: Ulcer of left foot w ith fat layer exposed (HCC) (Primary Dx) Start: 12-13-2020 ambulatory KRYSTYNA BUSBY Facility :[facility] Start: 12-13-2020 ambulatory SHARON HERNANDEZ Christy cility:[facility] Start: 12-06-2020 Orders Only Jefcynthia unger DPM Work Phone: [facility] Start: 12-05-2020 End: 12-05-2020 ambulatory JEF VIEIRAABIOLA LUX. [facility] Start: 11-16-2020 End: 11-16-2020 ambulatory JEF VIEIRAABIOLA LUX. [facility] Start: 10-17-2020 End: 10-21-2020 ambulatory JEF VELASQUEZN JR. [facility] Start: 10-17-2020 End: 10-17-2020 Office outpatient visit 15 minutes Jef Sierra DPM Work Phone: [facility] Comment on above: Chronic ulcer of gre at toe of left foot, unspecified ulcer stage (HCC) (Primary Dx) Start: 10-10-2020 End: 10-10-2020 Office outpatient visit 25 minutes Olga Lidia Matos MD Work Phone: [facility] Comment on above: Primary open angle g [place] (POAG) of right eye, severe stage (Primary Dx); Primary open angle glaucoma (POAG) of left eye, severe stage; Diabetic macular edema; Pseudophakia Start: 10-03-2020 End: 10-03-2020 ambulatory [facility] Mmp-[id number] [facility] [...] Start: 09-21-2020 End: 09-21-2020 ambulatory [facility] Start: 09-21-2020 End: 09-21-2020 Patient encounter procedure Neri Santa DO Work Phone: [facility] Comment on above: 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 [facility] Start: 09-14-2020 End: 09-14-2020 Office outpatient visit 15 minutes Jef Sierra DPM Work Phone: [facility] Comment on above: Great toe pain, left (Primary Dx); Foot abscess, left Start: 09-13-2020 End: 09-13-2020 Chart abstracting Jef Sierra DPM Work Phone: [facility] Comment on above: [...] minutes Luis Miguel Kaur MD Work Phone: [facility] Endocrinology Comment on above: Type 2 diabetes bety itus with diabetic polyneuropathy, with long-term current use of insulin (Primary Dx); Acquired hypothyroidism Start: 09-12-2020 ambulatory JEF MARIELA [facility] Ambulatory Start: 04-25-2020 End: 04-25-2020 Orders Only Kristen Chamberlain Work Phone: [facility] Start: 02-17-2020 End: 02-17-2020 Subsequent hospital visit by physician Sr Santa [facility] Start: 01-27-2020 End: 01-28-2020 Patient encounter procedure NERI SANTA Facility:H1 Start: 12-22-2019 End: 12-23-2019 Patient encounter procedure NERI CATRON Facility:[facility]1 Start: 12-20-2019 End: 12-20-2019 Emergency department patient visit NERI [facility] Start: 12-20-2019 End: 12-20-2019 Emergency department patient visit Andres Lubin Work Phone: [facility] Department Comment on above: Avulsion of fingerna il, initial encounter (Primary Dx) Start: 05-29-2018 End: 05-29-2018 Emergency department patient visit Jonathan Camara Work Phone: [facility] Comment on above: Cellulitis (Primary Dx) Start: 01-20-2018 End: 01-20-2018 Patient encounter procedure Rich Beltran [facility] Endocrinology Comment on above: Type 2 diabetes bety itus without complication, with long-term current use of insulin Start: 01-06-2018 End: 01-06-2018 Patient encounter Balbina Goss [facility] Rheumatology Comment on above: Appointment Start: 01-05-2018 End: 01-05-2018 Patient encounter Yusra Ching [facility] Endocrinology Comment on above: Type 2 diabetes bety itus without complication, with long-term current use of insulin (Primary Dx) Start: 01-01-2018 End: 01-01-2018 Office outpatient visit 25 minutes Luis Miguel Kaur Work Phone: [facility] Endocrinology Comment on above: Type 2 diabetes bety itus with diabetic polyneuropathy, without long-term current use of insulin (Primary Dx); Mixed hyperlipidemia Start: 01-01-2018 End: 01-01-2018 Patient encounter Historical Provider Neurology Madie Velazquez Start: 12-16-2017 Patient encounter procedure Pili Gilliam [place] Start: 11-25-2017 Patient encounter procedure Pili Gilliam [place] Start: 11-25-2017 End: 11-25-2017 Patient encounter Pili Gilliam Work Phone: [facility] Start: 11-03-2017 Patient encounter procedure Pili Gilliam Facility:[place] Start: 08-22-2017 End: 08-22-2017 Patient encounter procedure Mark Anthony Mcdonald Facility:[place] Start: 08-14-2017 Patient encounter procedure Mark Anthony Mcdonald Facility:[place] Start: 06-13-2017 Patient encounter procedure Martha Alexsander Yan Facility:[place] Start: 06-04-2017 End: 06-05-2017 Emergency department patient visit Ariel Franklin Facility:[place] Start: 04-11-2017 End: 04-11-2017 Ambulatory Martha Harris [place] Work Phone: [facility] Start: 04-07-2017 Office/outpatient vi [facility], level 3 Pili Gilliam Work Phone: [facility] Start: 03-28-2017 End: 03-28-2017 Ambulatory Pili Gilliam Work Phone: [facility] Start: 03-14-2017 End: 03-14-2017 Ambulatory Pili Gilliam Work Phone: [facility] Procedures Date Procedure Procedure Detail Performing Clinician Start: 09-27-2024 Visual field xm uni/ bi w/interp extended exam Skylar Whitfield DO Work Phone: Start: 09-27-2024 End: 09-27-2024 Ophth medical xm&eval 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 estab pt Primary open [...] DO Work Phone: Start: 06-28-2024 End: 06-28-2024 Ophth medical xm&eval compre new pt 1/> vst Primary open angle glaucoma (POAG) of both eyes, moderate stage Skylar Whitfield DO Work Phone: Comment on above: Primary open angle g laucoma (POAG) of both eyes, moderate stage (Primary Dx); 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 mellitus (CMS/HCC); Left posterior capsular opacification; Dry eyes Start: 03-29-2023 [facility] CBC W/ AUTO DIFF D arma Perez MD Work Phone: Start: 04-02-2022 Radex spine cervical 4 or 5 views Alisia Vaishali Alisia DO Work Phone: Start: 12-04-2021 Radex spine cervical 2 or 3 views Alie Loza TIRE MECHANIC - DISINTEGRATOR Work Phone: Start: 08-20-2021 Antibody screen JERRY BARRAZA Comment on above: Performed By: #### [id number] #### [address] Start: 08-10-2021 Glucose blood reagent strip [...] cervical 2 or 3 views Kam Loera TIRE MECHANIC - DISINTEGRATOR Work Phone: Start: 08-07-2021 Glucose blood reagent [...] Phone: Start: 07-29-2021 Blood count hemoglobin Missy L Tribull MD Work Phone: Start: 07-29-2021 End: 07-29-2021 [...] 07-25-2021 End: 07-25-2021 Assay of lactate Alaina Krreinier DO Work Phone: Start: 07-25-2021 EEG REPORT Joaquin To natalie Hamm MD Work Phone: Start: 07-25-2021 End: 07-25-2021 Blood count hemoglobin Missy Diallo Work Phone: Start: 07-25-2021 Ct angio abd&plvis c ntrst mtrl w/wo cntrst img Xin Grove MD Work Phone: Start: 07-25-2021 Ct cervical spine w/ o contrast material Kam Prado TIRE MECHANIC - CERTIFIED CYTOTECHNOLOGIST Work Phone: Start: 07-25-2021 End: 07-25-2021 Transfusion of packed red blood cells Keri Hart MD Work Phone: Start: 07-25-2021 Radiologic exam abdo men 1 view Keri Hart MD Work Phone: Start: 07-25-2021 End: 07-25-2021 Blood count hemoglobin Missy Diallo Work Phone: Start: 07-25-2021 Electroencephalogram w/rec awake&drowsy Sindy Sunshine TIRE MECHANIC - DISINTEGRATOR Work Phone: Start: 07-25-2021 End: 07-25-2021 Calcium ionized Mnaolo Haq Federico Rizo D Work Phone: Start: 07-25-2021 BASIC METABOLIC PANE [...] Start: 07-24-2021 Glucose blood reagent strip Jeff Willougbhy MD Work Phone: Start: 07-24-2021 End: 07-24-2021 Transfusion of packed red blood cells Missy Moore MD Work Phone: Start: 07-24-2021 Virus centrifuge enh ncd id imfluor stain ea Janyher Sallie Bolandchance TIRE MECHANIC - DISINTEGRATOR Work Phone: Start: 07-24-2021 End: 07-24-2021 Blood [...] 07-15-2021 Assay of glutamyltrase gamma Ava Stemple TIRE MECHANIC - CERTIFIED CYTOTECHNOLOGIST Work Phone: Start: 07-15-2021 BASIC METABOLIC PANE L W/ REFLEX TO MG FOR LOW K Tami Vega MD Work Phone: Start: 07-15-2021 Hepatic function panel Ava Stemple TIRE MECHANIC - CERTIFIED CYTOTECHNOLOGIST Work Phone: Start: 07-15-2021 Ecg routine ecg w/le ast 12 lds trcg only w/o i&r Tami Vega MD Work Phone: Start: 07-14-2021 Glucose blood reagent strip Silver Carmona MD Work Phone: Start: 07-14-2021 Glucose blood reagent strip Silver Carmona MD Work Phone: Start: 07-14-2021 Culture bacterial bl ood aerobic w/id isolates Ava Stemple TIRE MECHANIC - CERTIFIED CYTOTECHNOLOGIST Work Phone: Start: 07-14-2021 CULTURE, BLOOD 1 Bridge tte Stemple TIRE MECHANIC - CERTIFIED CYTOTECHNOLOGIST Work Phone: Start: 07-14-2021 Assay of magnesium [...] cervical 2 or 3 views Kam Prado TIRE MECHANIC - CERTIFIED CYTOTECHNOLOGIST Work Phone: Start: 07-10-2021 Insj prph ctr vad w/ subq port age 5 yr/> Meka Crowe MD Work Phone (unformatted): [phone] Start: 07-10-2021 COVID-19, RAPID Rufus Argueta MD Work Phone: Start: 07-10-2021 Ct cervical spine w/ o contrast material Kam Prado TIRE MECHANIC - CERTIFIED CYTOTECHNOLOGIST Work Phone: Start: 07-10-2021 Glucose blood reagent strip Silver Carmona MD Work Phone: Start: 07-10-2021 Glucose blood reagent strip Silver Carmona MD Work Phone: Start: 07-10-2021 Assay of magnesium Pard paulette Wagner MD Work Phone: Start: 07-10-2021 BASIC METABOLIC PANE L W/ REFLEX TO MG FOR LOW K Hari Wagner MD Work Phone: Start: 07-10-2021 C-reactive protein Neal torsten Argueta MD Work Phone: Start: 07-09-2021 Glucose [...] K Hari Bernard VIVEROS Work Phone: Start: 07-07-2021 Blood count complete [...] of packed red blood cells Nas Canales TIRE MECHANIC - [employer]F AND GROUNDS SUPERVISOR Start: 07-06-2021 Blood typing serologic abo Johnny [...] 07-06-2021 End: 07-06-2021 CERVICAL LAMINECTOMY FUSION Alisia Vaishali Crump DO Work Phone: Start: 07-06-2021 Glucose blood reagent strip Johnny Robledo MD Work Phone: Start: 07-06-2021 Culture bacterial qu anttative colony count urine Rufus Argueta MD Work Phone: Start: 07-06-2021 End: 07-06-2021 Assay of magnesium Hari Wagner MD Work Phone: Start: 07-06-2021 BASIC METABOLIC PANE L W/ REFLEX TO MG FOR LOW K Hari Wagnre MD Work Phone: Start: 07-06-2021 C-reactive protein Neal Argueta MD Work Phone: Start: 07-05-2021 Glucose blood reagent strip Johnny Robledo MD Work Phone: Start: 07-05-2021 Mri brain brain stem w/o w/contrast material Sindy Jong TIRE MECHANIC - DISINTEGRATOR Work Phone: Start: 07-05-2021 Glucose blood reagent strip Johnny Robledo MD Work Phone: Start: 07-05-2021 Radiologic exam swal low function contrast study Sindy Gudinohlman TIRE MECHANIC - DISINTEGRATOR Work Phone: Start: 07-05-2021 End: 07-05-2021 Potassium serum plasma/whole blood Tami Vega MD Work Phone: Start: 07-05-2021 Glucose blood reagent strip Johnny Robledo MD Work Phone: Start: 07-05-2021 Assay of magnesium Sahil Wagner MD Work Phone: Start: 07-05-2021 BASIC METABOLIC PANE L W/ REFLEX TO MG FOR LOW K Hari Wagner MD Work Phone: Start: 07-05-2021 C-reactive protein Neal torsten Argueta MD Work Phone: Start: 07-04-2021 Glucose blood reagent strip Johnny Robledo MD Work Phone: Start: 07-04-2021 Mri spinal canal cer vical w/o & w/contr matrl Kam Prado TIRE MECHANIC - CERTIFIED CYTOTECHNOLOGIST Work Phone: Start: 07-04-2021 Glucose blood reagent strip Johnny Robledo MD Work Phone: Start: 07-04-2021 End: 07-04-2021 CULTURE, BLOOD 1 Giulia Bray APR N - DISINTEGRATOR Work Phone: Start: 07-04-2021 Glucose blood reagent [...] study Meka Crowe MD Work Phone (unformatted): [phone] Start: 07-03-2021 Glucose blood reagent strip Johnny Robledo MD Work Phone: Start: 07-03-2021 Radiologic exam swal low function contrast study Rufus Argueta MD Work Phone: Start: 07-03-2021 Echo tthrc r-t 2d w/ wom-mode compl spec&colr d Meka Crowe MD Work Phone (unformatted): [phone] Start: 07-03-2021 Glucose blood reagent strip Johnny Robledo MD Work Phone: Start: 07-03-2021 Assay of magnesium Sahil Wagner MD Work Phone: Start: 07-03-2021 BASIC METABOLIC PANE L W/ REFLEX TO MG FOR LOW K Hrai Wagner MD Work Phone: Start: 07-03-2021 C-reactive [...] 1 Moni Crowe MD Work Phone (unformatted): [phone] Start: 07-02-2021 End: 07-02-2021 Esophagoscopy intra/transmural needle [...] 1 Moni Crowe MD Work Phone (unformatted): [phone] Start: 06-30-2021 End: 06-30-2021 Blood count hemoglobin [...] 1 Moni Crowe MD Work Phone (unformatted): [phone] Start: 06-30-2021 C-reactive protein Neal Argueta MD Work Phone: Start: 06-29-2021 Glucose blood reagent strip Jenifer Jewell MD Work Phone: Start: 06-29-2021 Ct cervical spine w/ contrast material Meka Crowe MD Work Phone (unformatted): [phone] Start: 06-29-2021 Ct thorax w/o contra st material Meka Crowe MD Work Phone (unformatted): [phone] Start: 06-29-2021 Radiologic exam ches t single [...] 06-28-2021 LACTATE, SEPSIS Israr U l John Work Phone: Start: 06-28-2021 Ecg routine ecg [...] Jef Sierra Jr., DPM Work Phone: Start: 12-27-2020 Ophthalmic examinati on and evaluation Jef Sierra Jr. DPSallie Work Phone: Start: 12-19-2020 APPLY DRESSING Jef [...] or At-Risk (2 of 2 - PPSV23) [facility] Start: 12-27-2024 End: 12-27-2024 Patient encounter procedure 12/27/2024 1:45 PM EST Office Visit [facility] [address] [place] [address] Skylar Whitfield DO [address] [place] [address] [facility] Start: 09-27-2024 End: 09-27-2024 Patient encounter procedure [facility] Comment on above: Arrived Start: 08-27-2024 End: 08-27-2024 Patient encounter procedure 08/27/2024 10:30 AM EDT Office Visit [facility] [address] [place] [phone] Ramona Campuzano PA [address] [place] [phone] Arrived [facility] Comment on above: Arrived Start: 08-23-2024 End: 08-23-2024 Patient encounter procedure 08/23/2024 10:50 AM EDT Office Visit [facility] [address] [place] [phone] Nadia Quiñones APRN-BRIDGER [address] [place] [address] [facility] Start: 08-17-2024 End: 08-17-2024 Patient encounter procedure 08/17/2024 10:50 AM EDT Office Visit [facility] [address] [place] [address] Nadia Quiñones, TIRE MECHANIC-DISINTEGRATOR [address] [place] [address] [facility] Start: 08-12-2023 Lipid panel Lipids [facility] Start: 07-09-2023 End: 07-09-2023 Patient encounter procedure 07/09/2023 9:05 AM EDT Office Visit [facility] [address] [place] [phone] Nadia Quiñones, TIRE MECHANIC-DISINTEGRATOR [address] [place] [address] [facility] Start: 10-01-2022 End: 10-01-2022 Patient encounter procedure 10/01/2022 Office Visit Neurosurgery Alisia Crump, DO [address] [place] [address] [facility] Start: 09-27-2022 GFR test (Diabetes, CKD 3-4, OR last GFR 15-59) GFR test (Diabetes, CKD 3-4, OR last GFR 15-59) [facility] Start: 09-09-2022 Hemoglobin A1c measurement A1C test (Diabetic or Prediabetic) [facility] Start: 07-24-2022 Screening for malignant neoplasm of colon [facility] Start: 06-30-2022 Diabetic foot examination [facility] Start: 06-28-2022 Lipid panel [facility] Start: 04-12-2022 Diabetic retinal exam Diabetic retinal exam [facility] Start: 04-12-2022 Diabetic retinal eye exam EYE EXAM [facility] Start: 04-12-2022 Glaucoma screening Diabetic retinal exam [facility] Start: 04-12-2022 [facility] Start: 03-15-2022 LIPIDS LIPIDS [facility] Start: 03-15-2022 Microalbumin measurement, urine, quantitative URINE MICROALBUMIN TEST [facility] Start: 03-15-2022 Thyroid stimulating hormone measurement TSH [facility] Start: 03-08-2022 End: 03-08-2022 Patient encounter procedure 03/08/2022 Office Visit Neurosurgery Alisia Alisia CorneliusDO ute [address] [facility] [address] [place] [address] [facility] Start: 02-14-2022 Ophthalmic examination and evaluation Ophthalmology Exam [facility] Start: 12-27-2021 Ophthalmic examination and evaluation Ophthalmology Exam [facility] Start: 12-07-2021 End: 12-07-2021 Patient encounter procedure 12/07/2021 Office Visit Urology [facility] Start: 10-18-2021 Influenza vaccination Flu vaccine (Season Ended) [facility] Start: 10-18-2021 [facility] Start: 10-05-2021 Diabetic retinal eye exam DIABETIC EYE EXAM [facility] Start: 09-28-2021 Hemoglobin A1c measurement [facility] Start: 09-17-2021 Influenza vaccination Flu vaccine (#1) [facility] Start: 09-13-2021 Diabetic retinal eye exam DIABETIC EYE EXAM [facility] Start: 09-12-2021 Hemoglobin A1c measurement HBA1C TEST [facility] Start: 09-01-2021 LIPIDS LIPIDS [facility] Start: 09-01-2021 Microalbumin measurement, urine, quantitative URINE MICROALBUMIN TEST [facility] Start: 09-01-2021 Potassium [Moles/volume] in Serum or Plasma POTASSIUM [facility] Start: 08-22-2021 End: 08-22-2021 CERVICAL LAMINECTOMY FUSION [facility] Start: 08-22-2021 End: 08-22-2021 [facility] Start: 08-16-2021 Diabetic retinal eye exam DIABETIC EYE EXAM [facility] Start: 08-08-2021 End: 08-08-2021 Patient encounter procedure 08/08/2021 Office Visit Infectious Diseases Meka Crowe MD [address] [facility], [address] [place], [place] [phone] (Work) [facility] Start: 07-31-2021 End: 07-31-2021 Patient encounter procedure 07/31/2021 Office Visit Podiatry Jef Sierra Jr., DPSallie [address] [place] [address] [facility] Start: 07-25-2021 End: 07-25-2021 Patient encounter procedure 07/25/2021 Office Visit Neurosurgery Dago Alie Jasmine, TIRE MECHANIC - DISINTEGRATOR [address] [facility] [address] [place] [address] [facility] Start: 07-17-2021 End: 07-17-2021 Patient encounter procedure 07/17/2021 Office Visit Urology Kevin Quintanilla MD [address] [place], [place] [phone] [facility] Start: 07-13-2021 End: 07-10-2022 Basic metabolic 2000 panel - Serum or Plasma [facility] Work Phone: Start: 07-10-2021 End: 07-10-2021 Patient encounter procedure 07/10/2021 Office Visit Neurology Franck Mtz MD [address] [place] [phone] Neurology [facility] Start: 07-04-2021 Hemoglobin A1c measurement A1C [facility] Start: 07-04-2021 End: 07-04-2021 ambulatory 07/04/2021 Infusion Visit Neurology [facility] Start: 06-20-2021 End: 06-20-2021 ambulatory 06/20/2021 Infusion Visit Neurology Infusion [facility] Start: 06-18-2021 End: 06-18-2021 Patient encounter procedure 06/18/2021 Office Visit Endocrinology, Diabetes & Metabolism Luis Miguel Kaur MD [address] [place] [address] [facility] Endocr[facility]ology Start: 06-07-2021 End: 06-07-2021 Patient encounter procedure 06/07/2021 Office Visit Ophthalmology Sharon Hernandez MD [address] [place] [phone] [facility] Start: 06-06-2021 End: 06-06-2021 ambulatory 06/06/2021 Infusion Visit Neurology Infusion [facility] Start: 06-05-2021 End: 06-05-2021 Patient encounter procedure 06/05/2021 Office Visit Orthopaedics Yaritza Stanley MD [address] [place] [address] [facility] Start: 05-31-2021 End: 05-31-2021 Patient encounter procedure 05/31/2021 Office Visit Ophthalmology Sharon Hernandez MD [address] [facility] [address] [place] [phone] [facility] Start: 05-23-2021 End: 05-23-2021 ambulatory 05/23/2021 Infusion Visit Neurology Infusion [facility] Start: 05-15-2021 End: 05-15-2021 Patient encounter procedure 05/15/2021 Office Visit Ophthalmology Olga Lidia Matos MD [address] [place] [address] [facility] Start: 04-17-2021 End: 04-17-2021 Patient encounter procedure 04/17/2021 Office Visit Podiatry Jef Sierra Jr., DPSallie [address] [place] [address] [facility] Start: 03-06-2021 End: 03-06-2021 Patient encounter procedure 03/06/2021 Office Visit Jef Vieira Jr., DPSallie [address] [place] [address] [facility] Start: 03-04-2021 Hemoglobin A1c measurement [facility] Start: 02-20-2021 End: 02-20-2021 Patient encounter procedure 02/20/2021 Office Visit PodJef Wagner Jr., DPM [address] [place] [address] [facility] Pod[facility] Start: 2021 End: 2021 Patient encounter procedure 2021 Office Visit Jef Vieira Jr., DPSallie [address] [place] [address] [facility] Start: 01-30-2021 End: 01-30-2021 Patient encounter procedure 01/30/2021 Office Visit Jef Vieira Jr., DPSallie [address] [place] [address] [facility] Start: 01-23-2021 End: 01-23-2021 Patient encounter procedure 01/23/2021 Office Visit PodJef Wagner Jr., DPSallie [address] [place] [address] [facility] Start: 01-16-2021 End: 01-16-2021 Patient encounter procedure 01/16/2021 Office Visit Jef Vieira Jr., DPSallie [address] [place] [place] [address] [facility] Start: 01-09-2021 End: 01-09-2021 Patient encounter procedure 01/09/2021 Office Visit Jef Vieira Jr., DPSallie [address] [place] [address] [facility] Pod[facility] Start: 01-01-2021 End: 01-01-2021 Patient encounter procedure 01/01/2021 Office Visit Neurology Nurys Thornton, TIRE MECHANIC-DISINTEGRATOR [address] [phone] Neurology [facility] Start: 12-26-2020 End: 12-26-2020 Patient encounter procedure 12/26/2020 Office Visit PodiatrJef Boykin Jr., DPM [address] [facility] [place] [address] [facility] Start: 12-02-2020 Hemoglobin A1c measurement A1C [facility] Start: 11-30-2020 End: 11-30-2020 Patient encounter procedure 11/30/2020 Office Visit Ophthalmology Sharon Hernandez MD [address] [phone] [facility] Start: 11-16-2020 End: 11-16-2020 Patient encounter procedure 11/16/2020 Office Visit PodiatrJef Boykin Jr., DPM [address] [place] [address] [facility]iat[facility] Start: 11-16-2020 End: 11-16-2020 Patient encounter procedure 11/16/2020 Office Visit Endocrinology, Diabetes & Metabolism Luis Miguel Kaur MD [address] [place] [address] [facility] Endocrinology Start: 11-14-2020 End: 11-14-2020 Patient encounter procedure 11/14/2020 Office Visit Ophthalmology Olga Lidia Matos MD [address] [place] [address] [facility] Start: 11-07-2020 End: 11-07-2020 Patient encounter procedure 11/07/2020 Office Visit Neurology Nurys Thornton, TIRE MECHANIC-DISINTEGRATOR [address] [place] [phone] Neurology [facility] Start: 10-18-2020 Influenza vaccination [facility] Start: 10-18-2020 End: 10-18-2020 Patient encounter procedure 10/18/2020 Office Visit Ophthalmology Sharon Hernandez MD [address] [place] [address] [facility] Start: 10-17-2020 End: 10-17-2020 ambulatory 10/17/2020 Infusion Visit Neurology Infusion [facility] Start: 10-10-2020 End: 10-10-2020 Patient encounter procedure 10/10/2020 Office Visit Ophthalmology Olga Lidia Matos MD [address] [place] [address] [facility] Start: 10-06-2020 Pneumococcal 0-64 years Vaccine (2 - PCV) Pneumococcal 0-64 years Vaccine (2 - PCV) [facility] Start: 10-06-2020 [facility] Start: 10-05-2020 End: 10-05-2020 Patient encounter procedure 10/05/2020 Office Visit Ophthalmology Sharon Hernandez MD [address] [place] [address] [facility] Start: 10-03-2020 End: 10-03-2020 ambulatory Infusion [facility] Start: 10-03-2020 End: 10-03-2020 Patient encounter procedure 10/03/2020 Office Visit Podiatry Jef Sierra Jr., DPM [address] [place] [address] [phone] [facility] Start: 09-26-2020 End: 09-26-2021 SENSORY MOTOR NEUROPATHY PANEL [facility] Work Phone: Comment on above: Expected: 09/26/2020, Expires: 2 Start: 09-26-2020 End: 09-26-2021 VEGF [facility] Comment on above: Expected: 09/26/2020, Expires: 2 Start: 09-19-2020 End: 09-19-2020 ambulatory 09/19/2020 Infusion Visit Neurology Infusion [facility] Start: 09-14-2020 End: 09-14-2020 Patient encounter procedure 09/14/2020 Office Visit Podiatry Jef Sierra Jr., DPM [address] [place] [address] [phone] [facility] Podiatry Start: 10-19-2019 Influenza vaccination Flu vaccine (#1) [place], [place] Start: 10-19-2019 Influenza vaccination given Sequential Influenza Vaccine (#1) [facility] Start: 08-25-2019 Creatinine measurement Creatinine monitoring [facility] [place] Start: 08-25-2019 Potassium monitoring Potassium monitoring [place], [place] Start: 08-12-2019 Urine screening for protein [facility] Start: 12-26-[address] [facility] Work Phone: Start: 12-19-2018 Diabetic retinal eye exam DIABETIC EYE EXAM [facility] Work Phone: Start: 10-09-2018 Thyrotropin Qn TSH [facility] Work Phone: Start: 08-04-2018 Annual Wellness Visit (AWV) Annual Wellness Visit (AWV) [facility]ELI CRU[facility] Start: 07-19-2018 HbA1c (Bld) [Mass fraction] A1C test (Diabetic or Prediabetic) [place], [place] Start: 07-06-2018 End: 07-06-2018 Ambulatory 07/06/2018 Office Visit Neurology Nurys Thornton, TIRE MECHANIC-DISINTEGRATOR [address] [phone] Neurology Madie Sanchesalta Start: 06-25-2018 Hemoglobin A1c/Hemoglobin.total mass fraction (Bld) HBA1C TEST [facility] Work Phone: Start: 04-04-2018 Protein mass conc MAMMOGRAM SCREENING DISCUSSION [facility] Work Phone: Start: 04-04-2018 Screening mammography MAMMOGRAM SCREENING DISCUSSION [facility] Start: 04-02-2018 End: 04-02-2018 Ambulatory 04/02/2018 Appointment NEUROPHYSIOLOGY Estefania Markham MD [address] [place] [phone] Department of Neurology Start: 03-20-2018 End: 03-20-2018 Ambulatory 03/20/2018 Office Visit Ophthalmology Grace Washington MD [address] [place] [phone] [facility] Start: 03-05-2018 End: 03-05-2018 Ambulatory Division of Hematology & Oncology Start: 02-03-2018 End: 02-03-2018 Ambulatory 02/03/2018 Office Visit Sleep Medicine Stefani Estrada MD [address] [place] [address] [address] [place] [phone] Department of Sleep Medicine Start: 01-22-2018 End: 01-22-2018 Ambulatory [facility] Rheumatology Start: 10-18-2017 Influenza vaccination [facility] Start: 10-18-2017 Influenza vaccination given SEQUENTIAL INFLUENZA VACCINE (#1) [facility] Start: 06-28-2017 Lipid panel Lipid screen [place], [place] Start: 04-11-2017 Ambulatory 04/11/2017 Hospital Encounter Martha Yan, DPM [address] [place] [address] [phone] [facility] Start: 04-07-2017 Ambulatory 04/07/2017 Office Visit Cardiology Pili Gilliam, DPM [address] [place] [address] [phone] Reji Miramontes III, DO [address] [place] [address] [phone] [facility] Start: 10-18-2016 Influenza vaccination SEQUENTIAL INFLUENZA VACCINE (#1) [facility] Start: 06-25-2014 Diabetic microalbuminuria test Diabetic microalbuminuria test [place] Start: 12-30-2013 Administration of herpes zoster vaccine Zoster Vaccines (2 of 3) [facility] Start: 12-30-2013 Shingles vaccine (1 of 2) Shingles vaccine (1 of 2) [facility] Start: 12-30-2013 Shingles vaccine (2 of 3) Shingles vaccine (2 of 3) [facility] Start: 12-30-2013 Zoster vaccine hzv live for subcutaneous use ZOSTER (SHINGLES) VACCINE (2 of 3) [facility] Start: 12-30-2013 [facility] Start: 2013 Administration of herpes zoster vaccine Zoster Vaccines (1 of 2) [facility] Start: 2013 Colonoscopy COLON CANCER SCREENING DISCUSSION [facility] Work Phone: Start: 2013 Protein mass conc COLON CANCER SCREENING DISCUSSION [facility] Work Phone: Start: 2013 Screening for malignant neoplasm of breast [facility] Start: 2013 Screening for malignant neoplasm of colon [facility] Start: 2013 Shingles Vaccine (1 of 2) Shingles Vaccine (1 of 2) [place] Start: 2013 Zoster vaccine hzv live for subcutaneous use ZOSTER (SHINGLES) VACCINE (1 of 2) [facility] Start: 02-07-2008 Colonoscopy COLORECTAL CANCER SCREENING DISCUSSION [facility] Start: 02-07-2008 Screening for malignant neoplasm of colon [facility] Start: 2003 Screening for malignant neoplasm of breast Mammogram [facility] Start: 1993 Screening for malignant neoplasm of cervix [facility] Start: 02-07-1984 Screening for malignant neoplasm of cervix [facility] Start: 1982 DTaP/Tdap/Td vaccine (1 - Tdap) DTaP/Tdap/Td vaccine (1 - Tdap) [facility] Start: 1982 Hepatitis B vaccine (1 of 3 - Risk 3-dose series) Hepatitis B vaccine (1 of 3 - Risk 3-dose series) [facility] Start: 1982 Third diphtheria, tetanus and acellular pertussis (DTaP) vaccination TDAP (ADULT) [facility] Start: 1982 [facility] Start: 1981 Hepatitis C antibody, confirmatory test Hepatitis C Screening [facility] Start: 1981 Hepatitis C screening [facility] Start: 1981 Microalbumin measurement, urine, quantitative URINE MICROALBUMIN TEST [facility] Work Phone: Start: 1981 Tetanus vaccination TETANUS [facility] Start: 1979 COVID-19 Vaccine (1 of 2) COVID-19 Vaccine (1 of 2) [facility] Start: 1978 HIV screening [facility] Start: 02-07-1976 HIV screening HIV SCREENING DISCUSSION [facility] Work Phone: Start: 1975 Adolescent depression screening assessment Depression Screening (PHQ9) [facility] Start: 1975 COVID-19 Vaccine (1) COVID-19 Vaccine (1) [facility] Start: 1975 Depression Screen Depression Screen [facility] Start: 1975 Depression screening using PHQ-9 (Patient Health Questionnaire 9) score [facility] Start: 1975 [facility] [employer] Start: 1973 Diabetic foot examination (regime/therapy) [facility] Start: 1973 Diabetic retinal exam Diabetic retinal exam [place], [place] Start: 1973 Microalbumin measurement, urine, quantitative Urine Microalbumin [facility] Start: 1973 Ophthalmic examination and evaluation OPHTHALMOLOGY EXAM [facility] Start: 1973 Urine, microalbumin URINE MICROALBUMIN [facility] Start: 1969 Pneumococcal Vaccine: Ped or At-Risk (1 of 2 - PPSV23) Pneumococcal Vaccine: Ped or At-Risk (1 of 2 - PPSV23) [facility] Start: 02-07-1968 COVID-19 Vaccine (1) COVID-19 Vaccine (1) [facility] Start: 02-07-1968 [facility] [employer] Start: 1966 History and physical examination, annual for health maintenance Wellness Visit [facility] Start: 1963 COVID-19 Vaccine (#1) COVID-19 Vaccine (#1) [facility] [employer] Start: 1963 Annual Wellness Visit (AWV) Annual Wellness Visit (AWV) [facility] Start: 1963 Diabetic foot examination DIABETIC FOOT EXAM [facility] Start: 1963 HbA1c HEMOGLOBIN A1C [facility] Start: 1963 Hemoglobin A1c measurement A1C [facility] Start: 1963 Hepatitis C antibody, confirmatory test HEPATITIS C SCREENING [facility] Start: 1963 HEPATITIS C SCREENING HEPATITIS C SCREENING [facility] Start: 1963 Hepatitis C screening Hepatitis C screen [place], [place] Start: 1963 Protein mass conc Mammogram [facility] Start: 1963 Screening colonoscopy COLONOSCOPY [facility] Start: 1963 Screening for malignant neoplasm of cervix PAP SMEAR [facility] Start: 1963 Screening for malignant neoplasm of colon Colorectal Cancer Screening: Colonoscopy [facility] Start: 1963 Screening mammography Mammogram [facility] Start: 1963 [facility]anus [facility] Start: [facility] Aerobic culture Aerobic culture Microbiology Timed Impetigo Release Upon Ordering for 1 Occurrences starting 08/27/2024 [facility] Work Phone: Comment on above: Release Upon Ordering for 1 Occurrences starting 08/27/2024 End: 09-14-2021 Aerobic microbial culture Wound Aerobic Culture Microbiology Routine Foot abscess, left 1 Occurrences starting 09/14/2020 until 09/14/2021 [facility] Comment on above: 1 Occurrences starting 09/14/2020 until 09/14/2021 Aerobic microbial culture Wound Aerobic Culture Microbiology Routine Wound infection Partial thickness burn of single finger of right hand excluding thumb, initial encounter 05/01/2021 3:00 PM EDT [facility] Work Phone: Basic Metabolic Pane l w/ Reflex to MG [facility] [employer] Work Phone: Basic Metabolic Pane l w/ Reflex to MG [facility] [employer] Work Phone: BLOOD GAS, ARTERIAL [facility] [employer] Work Phone: Blood gas, arterial [facility] [employer] Work Phone: C-reactive protein [facility] [employer] Work Phone: CBC W Auto Different ial panel - Blood [facility] [employer] Work Phone: End: 09-08-2021 CBC W Auto Differential panel - Blood [facility] [employer] Work Phone: CBC W Auto Different ial panel - Blood [facility] [employer] Work Phone: Continuous pulse oximetry [facility] [employer] Work Phone: End: 02-17-2020 COVID-19 COVID-19 Lab Routine Once for 1 Occurrences starting 02/17/2020 until 02/17/2020 [facility] [place] Comment on above: Once for 1 Occurrences starting 02/17/20 20 until 02/17/2020 End: 09-08-2021 Creatinine [Mass/volume] in Serum or Plasma [facility] [employer] Work Phone: Culture, Anaerobic a nd Aerobic [facility] [employer] Work Phone: End: 06-28-2021 Culture, Blood 1 [employer] Phone: Comment on above: One Time for 1 Occurrences starting 06/17 until 06/28/2021 Culture, Blood 1 [employer] Phone: Culture, Blood 1 [employer] Phone: Culture, Blood 1 [employer] Phone: Culture,Bacterial Culture,Bacter ial Routine 03/14/2017 9:30 AM [facility] Work Phone: Glucose [Mass/volume ] in Serum or Plasma [employer] Phone: Glucose [Mass/volume ] in Serum or Plasma [employer] Phone: End: 08-02-2021 Glucose [Mass/volume] in Serum or Plasma [employer] Phone: End: 07-26-2021 Initiate RT Adult Mechanical Ventilation Protocol [employer] Phone: Mechanical Ventilati on with default initial settings [employer] Phone: Oxygen therapy [Mini mum Data Set] [employer] Phone: Oxygen therapy [Mini mum Data Set] [employer] Phone: End: 06-28-2021 PREVIOUS SPECIMEN [employer] Phone: End: 07-15-2021 PREVIOUS SPECIMEN [employer] Phone: End: 07-18-2021 PREVIOUS SPECIMEN [employer] Phone: End: 08-08-2021 PREVIOUS SPECIMEN [employer] Phone: Respiratory Care Evaluation and Treat [employer] Phone: End: 07-05-2021 SENIOR MARKETING ASSOCIATE clinical swallow evaluation [facility] [employer] Work Phone: End: 06-29-2021 Speech and language therapy regime [facility] [employer] [facility] Work Phone: Spontaneous Breathin g Trial (SBT) [facility] Work Phone: End: 07-14-2021 Wound ostomy eval and treat [facility] [employer] Work Phone: Immunizations Immunization Date Immunization Notes Care Provider [facility] 10-07-2019 influenza virus vacc ine, unspecified formulation Jef Sierra Jr., DPM Work Phone: [facility] 10-07-2019 pneumococcal vaccine , unspecified formulation Jef Sierra Jr., DPM Work Phone: [facility] 11-04-2013 influenza virus vacc ine, whole virus Franck Mtz MD Work Phone: [facility] 11-04-2013 influenza, seasonal, injectable Franck Mtz MD Work Phone: [facility] 11-04-2013 zoster vaccine, live Franck Mtz MD Work Phone: [facility] 11-04-2013 influenza virus vacc ine, unspecified formulation Luis Miguel Darmody [facility] Work Phone: 11-04-2013 zoster vaccine, unspecified formulation Franck Mtz MD Work Phone: [facility] 07-29-2012 pneumococcal polysaccharide vaccine, 23 valent Franck Mtz MD Work Phone: [facility] Payers Date Payer Category Payer Medicaid MEDICAID [facility] [id number] 2022 Medicaid [id number] 2021 Self-pay [id number] 2017 Unknown [id number] 2002 Medicare xxxxxxxxxx [id number] 2002 Medicare [id number]. 1.13.385.2. [id number] 2002 Medicare [id number]. [id number] 2002 Government (not [facility] or Medicaid) [facility] [id number]. [id number] 2002 Unknown xxxxxxxxx 2.16.840.1.380131.3.249.13 2001 Unknown [id number] 1.2.840.969986.1.13.385.2. 7.3.776632.315 2001 Unknown 1.2.840.230788. 1.13.385.2. 7.3.146631.315 1963 Unknown [id number] 2.16.840.1.130915.3.579.2. 902 1963 Unknown [id number] 2.16.840.1.595561.3.579.2. 593 1963 Unknown [id number] 2.16.840.1.373311.3.579.2. 593 1963 Unknown [id number] 2.16.840.1.163001.3.579.2. 903 1963 Unknown [id number] 2.16.840.1.018913.3.579.2. 903 1963 Unknown [id number] 2.16.840.1.919396.3.579.2. 903 1963 Unknown [id number] 2.16.840.1.136032.3.579.2 90 1963 Unknown [id number] 2.16.840.1.826183.3.579.2. 90 1963 Unknown [id number] 2.16.840.1.916956.3.579.2 903 1963 Unknown [id number] 2.16.840.1.994013.3.579.2 903 1963 Unknown [id number] 2.16.840.1.922288.3.579.2 903 1963 Unknown [id number] 2.16.840.1.230433.3.579.2. 903 1963 Unknown [id number] 2.16.840.1.151129.3.579.2. 903 1963 Unknown [id number] 2.16.840.1.132782.3.579.2. 903 1963 Unknown [id number] 2.16.840.1.141398.3.579.2 903 1963 Unknown [id number] 2.16.840.1.471032.3.579.2. 903 1963 Unknown [id number] 2.16.840.1.820044.3.579.2. 903 1963 Unknown [id number] 2.16.840.1.796995.3.579.2. 903 1963 Unknown [id number] 2.16.840.1.148101.3.579.2. 903 1963 Unknown [id number] 2.16.840.1.978273.3.579.2. 903 1963 Unknown [id number] 2.16.840.1.393989.3.579.2. 1143 1963 Unknown [id number] 2.16.840.1.797881.3.579.2. 1143 1963 Unknown [id number] 2.16.840.1.701126.3.579.2. 903 1963 Unknown [id number] 2.16.840.1.808579.3.579.2. 903 1963 Unknown [id number] 2.16.840.1.001635.3.579.2. 903 1963 Unknown [id number] 2.16.840.1.470962.3.579.2. 647 1963 Unknown [id number] 2.16.840.1.335863.3.579.2. 594 1963 Unknown [id number] 2.16.840.1.999395.3.579.2. 594 1963 Unknown [id number] 2.16.840.1.361522.3.579.2. 594 1963 Unknown [id number] 2.16.840.1.099446.3.579.2. 594 1963 Unknown [id number] 2.16.840.1.807811.3.579.2. 594 1963 Unknown [id number] 2.16.840.1.327915.3.579.2. 594 1963 Unknown [id number] 2.16.840.1.759963.3.579.2. 594 1963 Unknown [id number] 2.16.840.1.369081.3.579.2. 594 1963 Unknown [id number] 2.16.840.1.270473.3.579.2. 594 1963 Unknown [id number] 2.16.840.1.320219.3.579.2. 594 1963 Unknown [id number] 2.16.840.1.794346.3.579.2. 594 1963 Unknown [id number] 2.16.840.1.308089.3.579.2. 594 1963 Unknown [id number] 2.16.840.1.368641.3.579.2. 594 1963 Unknown [id number] 2.16.840.1.656351.3.579.2. 594 1963 Unknown [id number] 2.16.840.1.921027.3.579.2. 594 1963 Unknown [id number] 2.16.840.1.057177.3.579.2. 594 1963 Unknown [id number] 2.16.840.1.315443.3.579.2. 594 1963 Unknown [id number] 2.16.840.1.407442.3.579.2. 594 1963 Unknown [id number] 2.16.840.1.712460.3.579.2. 594 1963 Unknown [id number] 2.16.840.1.381062.3.579.2. 594 1963 Unknown [id number] 2.16.840.1.099899.3.579.2. 594 1963 Unknown [id number] 2.16.840.1.517568.3.579.2. 594 1963 Unknown [id number] 2.16.840.1.650629.3.579.2. 594 1963 Unknown [id number] 2.16.840.1.230956.3.579.2. 174 1963 Unknown [id number] 2.16.840.1.032443.3.579.2. 175 1963 Unknown [id number] 2.16.840.1.869727.3.579.2. 175 1963 Unknown [id number] 2.16.840.1.432610.3.579.2. 727 1963 Unknown [id number] 2.16.840.1.315724.3.579.2. 727 1963 Unknown [id number] 2.16.840.1.747400.3.579.2. 727 1963 Unknown [id number] 2.16.840.1.276273.3.579.2. 727 1963 Unknown [id number] 2.16.840.1.172672.3.579.2. 727 1963 Unknown [id number] 2.16.840.1.947114.3.579.2. 1259 1963 Unknown [id number] 2.16.840.1.946551.3.579.2. 1259 1963 Unknown [id number] 2.16.840.1.981288.3.579.2. 1259 1959 Medicare [id number] 1959 Unknown [id number] 2.16.840.1.817128.3.249.13 Medicare [id number] 2.16.840.1.543329.3.249.13 Unknown [id number] Unknown [id number] 2.16.840.1.767286.3.579.2. 531 Social History Date Type Detail Facility Start: 04-07-2017 End: 12-04-2021 Tobacco smoking status [facility] Former smoker [facility] End: 02-18-1996 History of tobacco use Current smoker [facility] Start: 1965 Sex Assigned At Not on file [facility] Work Phone: Start: 03-15-2017 End: 03-29-2017 Tobacco smoking status [facility]IS Unknown if ever smoked [facility] End: 02-18-1996 History of tobacco use Cigarette Smoker [facility] Work Phone: Start: 04-07-2017 Tobacco Comment doesn't rememb er how much she smoked [facility] Start: 04-07-2017 Alcohol Comment [facility] Start: 12-20-2019 End: 12-04-2021 Tobacco use and exposure Never used [facility] Start: 12-20-2019 End: 05-01-2021 Alcohol intake Current drinker of alcohol (finding) [facility] Start: 04-07-2021 End: 07-13-2021 Exposure to SARS-CoV-2 (event) Not sure [facility] Start: 10-05-2017 End: 04-02-2022 Alcohol intake Current non-drinker of alcohol (finding) [place] Start: 1965 Sex Assigned At Female F [facility] Gender identity Not on file [facility] are Medical Equipment Procedure Code Equipment Code Equipment Origin al Text Equipment Identifier Dates 1 strip by Unkno wn route 3 times daily (take before meals). [id number] Start: 10-13-2017 End: 01-07-2018 Lens Au00t0 D 23 .5 - [id number] Start: 12-23-2018 Osc Tissue [place] [id number] Start: 02-23-2020 Implant Opth 250 sq Mm Jo 1 Qdrnt Ins Fx Sut Hl Rcs Knt Cpb - [id number] Start: 02-23-2020 [id number] Start: 07-06-2021 Set Screw Spinal M6 - [id number] Start: 09-25-2021 Clinical Notes 09-13-2020 to 11-23-2024 Telephone Encounter - Jay Chávez NP - 11/23/2024 6:57 PM EDTTelephone Encounter - Jay Chávez NP - 11/23/2024 6:57 PM EDTTelephone Encounter - Mahin Bernal MD - 11/23/2024 9:35 AM EDTAttachments Note Date & Type Note Facility 11-23-2024 Telephone encounter Note Requested Prescriptions Signed Prescriptions Disp Refills potassium chloride CR (K-Tab) 20 MEQ ER tablet 30 tablet 11 Sig: Take 1 tablet (20 mEq) by mouth Daily Do not crush, chew, or split. Authorizing Provider: JAY CHÁVEZ [facility] 11-23-2024 Miscellaneous Notes Requested Prescriptions Signed Prescriptions Disp Refills potassium chloride CR (K-Tab) 20 MEQ ER tablet 30 tablet 11 Sig: Take 1 tablet (20 mEq) by mouth Daily Do not crush, chew, or split. Authorizing Provider: JAY CHÁVEZ documented in this encounter [facility] 11-23-2024 Telephone encounter Note Needed refill of Potassium Chloride [facility] 11-23-2024 Miscellaneous Notes Needed refill of Potassium Chloride documented in this encounter [facility] 11-22-2024 Telephone encounter Note Requested Prescriptions Signed Prescriptions Disp Refills carvedilol (Coreg) 12.5 MG tablet 60 tablet 11 Sig: Take 1 tablet (12.5 mg) by mouth in the morning and 1 tablet (12.5 mg) before bedtime. Authorizing Provider: JAY CHÁVEZ aspirin 325 MG tablet 30 tablet 11 Sig: Take 1 tablet (325 mg) by mouth Daily Authorizing Provider: JAY CHÁVEZ ferrous sulfate (Fe Tabs) 325 (65 Fe) MG EC tablet 30 tablet 11 Sig: Take 1 tablet (325 mg) by mouth in the morning. Take with meals. Do not crush, chew, or split. Authorizing Provider: JAY CHÁVEZ [facility] 11-22-2024 Miscellaneous Notes Requested Prescriptions Signed Prescriptions Disp Refills carvedilol (Coreg) 12.5 MG tablet 60 tablet 11 Sig: Take 1 tablet (12.5 mg) by mouth in the morning and 1 tablet (12.5 mg) before bedtime. Authorizing Provider: JAY CHÁVEZ aspirin 325 MG tablet 30 tablet 11 Sig: Take 1 tablet (325 mg) by mouth Daily Authorizing Provider: JAY CHÁVEZ ferrous sulfate (Fe Tabs) 325 (65 Fe) MG EC tablet 30 tablet 11 Sig: Take 1 tablet (325 mg) by mouth in the morning. Take with meals. Do not crush, chew, or split. Authorizing Provider: JAY CHÁVEZ documented in this encounter [facility] 09-27-2024 Note Right Eye Reliability was good. Progression has been stable. Foveal threshold was normal. Findings include superior arcuate defect, superior nasal step defect. Left Eye Reliability was good. Progression has been stable. Foveal threshold was normal. Findings include superior arcuate defect, superior nasal step defect, inferior nasal step defect. [facility] 09-27-2024 History of Present illness Narrative [...] laser capsulotomy, they are to notify their bill checker promptly if they have a significant change in symptoms, such as flashes of light (photopsia), an increase in floaters, loss of visual field or decrease in visual acuity. Dry eyes - Dry Eyes OU -- Environmental changes to minimize dryness and exposure and the use of artificial tears were recommended. documented in this encounter [facility] 08-27-2024 History of Present illness Narrative [...] Account Name: Marisa Sumi NPI: Ramona Campuzano [id number] Next Visit: prn for any new/changing lesions documented in this encounter [facility] 06-28-2024 History of Present illness Narrative [...] laser capsulotomy, they are to notify their bill checker promptly if they have a significant change in symptoms, such as flashes of light (photopsia), an increase in floaters, loss of visual field or decrease in visual acuity. Dry eyes - Dry Eyes OU -- Environmental changes to minimize dryness and exposure and the use of artificial tears were recommended. documented in this encounter [facility] 04-16-2024 Note ED Patient Education Note [...] Managing pain, stiffness, and swelling ??? Take fczt-zon-uvibens and prescription medicines only as told by [...] day. ??? 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 Name: Meg Georges Admitted: 08/19/2021 [...] PEG tube. The patient recently was at [facility] in June for complaint of MSSA septicemia. She was trached at that time. She also was found to have an epidural phlegmon, which was causing compression on the cervicomedullary junction. She was given 6 weeks course of antibiotics for osteomyelitis. She had surgery at [facility] postoperatively here after the packing was removed from her nares as she was found to have leaking from her nares. She had a CT facial and brain, which showed a possible CSF leak. Decision was made by our Neurosurgery team and our SICU team to transfer her back to her surgeon since . She was accepted and transferred back to the ICU at [place]. The patient was discharged in stable condition. Electronically Signed by: Jerry Pozo MD 08/23/2021 11:13 A Jerry Pozo MD I have reviewed this discharge summary and confirmed the resident's documentation. Please note that there may be additional documentation from me. Date Dict: 08/22/2021/05:19 P/Mai Grier, DISINTEGRATOR Date Trans: 08/23/2021 07:42 A/mmo [id number] cc: Johny Beckman M.D. [address] [facility] [address] Neri Santa D.O. [address] [place] [place] [address] [facility] 08-10-2021 History of Present illness Narrative 08/10/21 1750 Surgical Airway (Trach) 07/30/21 Shiley Cuffed Placement Date/Time: 07/30/21932 Placed By: In surgery;Licensed provider Placement Verified By: Direct visualization Surgical Airway Type: Tracheostomy Brand: Shiley Style: Cuffed Size (mm): 7 Status Secured [...] to assess Fluid Accumulation: Mild Extremities,Generalized Supervisor Lace Tearing Strength: Not Performed Nutrition Assessment: Chart reviewed. [...] Anthropometric Measures: Height: 5' 5 (165.1 cm) Blair Body Weight (IBW): 125 lbs (57 kg) [...] were not included. [facility] -Progress Note Today's Date and Time: 08/10/2021, [...] of C2 fx noted Infection Control Recommendations Elizabeth Precautions Isolate for Covid until 07-23-21 Antimicrobial [...] through 08-20-21. Patient was transferred back to [facility] on 07-14-21 because of a positive Covid [...] noted. Neurosurgery with plans for outpatient C 2 fusion surgery tentatively on 08/22/21. Nafcillin continues [...] EXPLORATION OF EPIDURAL PHLEGMON performed by Alisia rCump DO at [facility] OR CHOLECYSTECTOMY EYE SURGERY [address] shunt for open angle glaucoma. MRI compatible- device is all silicone LAMINECTOMY 07/06/2021 Posterior C1, LEFT C2 RHIZOTOMY, EXPLORATION OF EPIDURAL PHLEGMON PICC INSERTION VASCULAR ACCESS TEAM 07/10/2021 SHOULDER SURGERY right TRACHEOSTOMY 07/30/2021 TRACHEOSTOMY N/A 07/30/2021 TRACHEOTOMY performed by Erica Santiago MD at [facility] OR UPPER GASTROINTESTINAL ENDOSCOPY N/A 07/02/2021 EGD ESOPHAGOGASTRODUODENOSCOPY performed by Hari Wagner MD at [facility] Endoscopy Medications: insulin glargine 10 [...] Friends and Family: Not on file Attends [employer] Services: Not on file Active Member of [...] CBC with Differential: Recent Labs 08/08/21 0959 08/10/21345 WBC 9.5 9.0 HGB 8.0* 8.9* HCT 24.6* 28.0* PLT 514* 576* LYMPHOPCT 23* 25 MONOPCT 7 7 BMP: Recent Labs 08/08/21 0622 08/10/21345 NA 141 142 K 3.8 3.3* CL [...] extension (from neutral), as above. Medical Decision Ovrrel-Fcpncten-Vkrgj: SARS-CoV-2, Rapid COVID-19, Rapid Collected: 07/13/21 5749 Result status: Final Resulting lab: [facility] Reference range: Not Detected Value: DETECTED [...] this assay. Fact sheet for Healthcare Providers: https://www.fda.gov/media/695661/downl oad Fact sheet for Patients: https://www.fda.gov/media/453863/downl oad Methodology: Isothermal Nucleic Acid Amplification Culture, Respiratory Order: [id number] Status: Final result Visible to patient: No (not released) Next appt: Today at 02:30 PM in Radiology (STV MRI RM 1 (1.5T)) Specimen Information: Sputum Aspirated 0 Result Notes Component 07/24/21 1523 Specimen Description .ASPIRATED SPUTUM Direct Exam < 10 EPITHELIAL CELLS/LPF Direct Exam >25 NEUTROPHILS/LPF Direct Exam MANY GRAM NEGATIVE RODS Abnormal Culture KLEBSIELLA AEROGENES HEAVY GROWTH Abnormal Culture NO NORMAL ROB Resulting Agency [facility] [place] Susceptibility Klebsiella aerogenes (1) Antibiotic Interpretation Microscan [...] Patient's name: Meg Georges Patient's account/billing number: [id number] Patient's Date of : 1965 Age: 56 [...] patient was sent to the ED in [facility] from outpatient infusion center where she [...] Date 08/10/21 0000 - 08/10/21 2359 Shift [id number] 2393-5423 8902-3917 24 Hour Total INTAKE I.V.(mL/kg) 169(2.9) 169(2.9) [...] Results Component Value Date PHART 7.406 07/06/2021 YLL6PHA 34.8 07/06/2021 PO2ART 279.0 07/06/2021 GOC0KLF 21.4 07/06/2021 G3BXSLEY 99.4 07/06/2021 FIO2 30.0 08/05/2021 Lactic Acid: [...] 23.9 06/28/2021 Basal Metabolic Profile: Recent Labs 08/08/2162108/10/21345 NA 141 142 K 3.8 3.3* BUN 11 11 CREATININE 0.59 0.54 CL 108* 107 CO2 Magnesium: Lab Results Component Value [...] No results for input(s): LABIRON, TIBC, FERRITIN, TDASKXOG63, FOLATE, OCCULTBLD in the last 72 hours. [...] MD Department of Internal Medicine/ Critical care [facility]) 08/10/2021, 7:54 AM Attending Physician Statement [...] this chart was generated using voice recognition Jobzella dictation software. Although every effort was made to ensure the accuracy of this automated clam treader, some errors in clam treader may have occurred. PALLIATIVE CARE NURSING ASSESSMENT Patient: Meg Georges Room: [address] [place] [address] Reason For Consult Goals of care evaluation Distress management Guidance and support Facilitate communications Assistance in coordinating care Code Status: Full Code Summary: Pt visit, stable on cpap trial. Awaiting placement to [facility]. Spoke with COURTNEY Santamaria 08/10/21. I gave her suggestions on how to locate Living Will/ Will information. Discussed code classifications again. She confirms understanding and thinks her sister would want to remain full code. Acknowledged and supported Hina in this decision as well as moving forward with transfer to [facility]. Encouraged her to call as [...] Encephalitis Encephalopathy CIDP (chronic inflammatory demyelinating polyneuropathy) ([facility]) Sepsis (HCC) Bacteremia Hypothyroidism Hypokalemia Type 2 diabetes mellitus with diabetic polyneuropathy (HCC) Primary hypertension Upper GI bleed Non-intractable vomiting Unintentional weight loss Metabolic encephalopathy MSSA (methicillin susceptible Staphylococcus aureus) septicemia ([facility]) CRP elevated Bandemia Allergy to [...] Stable. Notes [facility], recommend completion of full course of antibiotic therapy for osteomyelitis through 08/15/21. Plan for C1/2 fusion elective surgery tentatively 08/22/21. 08/10/21: Reviewed chart and called sister Hina. Confirmed that Hina is updated on situation. She is aware of plan to move to [facility] when bed available. She was told her [...] Hina relates patient filled out DPOAH at [facility] in [place]. 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 Wished patient and family well moving forward. Infusion Nurse Leeann FENTONN, RN, ONN-CG [place] Office: [phone] [place] Office: [phone] [facility] Office: [phone] For Symptom Management Clinic scheduling please call [phone] Images from the original note were not included. [facility] -Progress Note Today's Date and Time: 08/09/2021, [...] of C2 fx noted Infection Control Recommendations Elizabeth Precautions Isolate for Covid until 07-23-21 Antimicrobial [...] through 08-20-21. Patient was transferred back to [facility] on 07-14-21 because of a positive Covid [...] PHLEGMON performed by Alisia Crump DO at [facility] OR CHOLECYSTECTOMY EYE SURGERY [address] shunt for open angle glaucoma. MRI compatible- device is all silicone LAMINECTOMY 07/06/2021 Posterior C1, LEFT C2 RHIZOTOMY, EXPLORATION OF EPIDURAL PHLEGMON PICC INSERTION VASCULAR ACCESS TEAM 07/10/2021 SHOULDER SURGERY right TRACHEOSTOMY 07/30/2021 TRACHEOSTOMY N/A 07/30/2021 TRACHEOTOMY performed by Erica Santiago MD at [facility] OR UPPER GASTROINTESTINAL ENDOSCOPY N/A 07/02/2021 EGD ESOPHAGOGASTRODUODENOSCOPY performed by Hari Wagner MD at [facility] Endoscopy Medications: QUEtiapine 25 mg [...] Friends and Family: Not on file Attends [employer] Services: Not on file Active Member of [...] extension (from neutral), as above. Medical Decision Ndhkht-Kpcmbhoj-Xemwp: SARS-CoV-2, Rapid COVID-19, Rapid Collected: 07/13/212306 Result status: Final Resulting lab: [facility] Reference range: Not Detected Value: DETECTED [...] this assay. Fact sheet for Healthcare Providers: https://www.fda.gov/media/370404/downl oad Fact sheet for Patients: https://www.fda.gov/media/495848/downl oad Methodology: Isothermal Nucleic Acid Amplification Culture, Respiratory Order: [id number] Status: Final result Visible to patient: No (not released) Next appt: Today at 02:30 PM in Radiology (STV MRI RM 1 (1.5T)) Specimen Information: Sputum Aspirated 0 Result Notes Component 07/24/21 3916 Specimen Description .ASPIRATED SPUTUM Direct Exam < 10 EPITHELIAL CELLS/LPF Direct Exam >25 NEUTROPHILS/LPF Direct Exam MANY GRAM NEGATIVE RODS Abnormal Culture KLEBSIELLA AEROGENES HEAVY GROWTH Abnormal Culture NO NORMAL ROB Resulting Agency [facility] [place] Susceptibility Klebsiella aerogenes (1) Antibiotic Interpretation Microscan Method Status aztreonam Sensitive <=1 BACTERIAL SUSCEPTIBILITY PANEL EBCKY Final ceFAZolin Resistant BACTERIAL SUSCEPTIBILITY PANEL BECKY [...] Patient's name: Meg Georges Patient's account/billing number: [id number] Patient's Date of : 1965 Age: 56 [...] patient was sent to the ED in [facility] from outpatient infusion center where she [...] 1600 ml Net 370.15 ml Date 08/09/21 - 08/09/21 2359 Shift 4508-8571 2845-9335 5211-1168 24 Hour Total INTAKE I.V.(mL/kg) 191(3.2) 191(3.2) [...] mcg/kg/hr (08/09/21751) sodium chloride 10 mL/hr at 08/09/21 0752 dextrose 75 mL/hr (08/06/211956) PRN Meds: fentanNYL, [...] Results Component Value Date PHART 7.406 07/06/2021 JHB6PDC 34.8 07/06/2021 PO2ART 279.0 07/06/2021 HYH6ODF 21.4 07/06/2021 Q4QURHDM 99.4 07/06/2021 FIO2 30.0 08/05/2021 Lactic Acid: [...] No results for input(s): LABIRON, TIBC, FERRITIN, LPILMXRZ90, FOLATE, OCCULTBLD in the last 72 hours. [...] MD Department of Internal Medicine/ Critical care [facility]) 08/09/2021, 8:12 AM Attending Physician Statement I have discussed the care of Meg Georges, including pertinent history and exam findings, with the resident. I have seen and examined the patient and the cofefy elements of all parts of the encounter [...] this chart was generated using voice recognition Youxinpaion dictation software. Although every effort was made to ensure the accuracy of this automated clam treader, some errors in clam treader may have occurred. 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 [facility] -Progress Note Today's Date and Time: 08/08/2021, [...] of C2 fx noted Infection Control Recommendations Elizabeth Precautions Isolate for Covid until 07-23-21 Antimicrobial [...] through 08-20-21. Patient was transferred back to [facility] on 07-14-21 because of a positive Covid [...] PHLEGMON performed by Alisia Crump DO at [facility] OR CHOLECYSTECTOMY EYE SURGERY [address] shunt for open angle glaucoma. MRI compatible- device is all silicone LAMINECTOMY 07/06/2021 Posterior C1, LEFT C2 RHIZOTOMY, EXPLORATION OF EPIDURAL PHLEGMON PICC INSERTION VASCULAR ACCESS TEAM 07/10/2021 SHOULDER SURGERY right TRACHEOSTOMY 07/30/2021 TRACHEOSTOMY N/A 07/30/2021 TRACHEOTOMY performed by Erica Santiago MD at [facility] OR UPPER GASTROINTESTINAL ENDOSCOPY N/A 07/02/2021 EGD ESOPHAGOGASTRODUODENOSCOPY performed by Hari Wagner MD at [facility] Endoscopy Medications: QUEtiapine 50 mg [...] Friends and Family: Not on file Attends [employer] Services: Not on file Active Member of [...] labs: CBC with Differential: Recent Labs 08/06/21 034 WBC 12.3* HGB 8.6* HCT 26.3* PLT [...] extension (from neutral), as above. Medical Decision Xllusl-Ultwvibd-Sduxw: SARS-CoV-2, Rapid COVID-19, Rapid Collected: 07/13/21 4595 Result status: Final [facility] Reference range: Not Detected Value: DETECTED [...] this assay. Fact sheet for Healthcare Providers: https://www.fda.gov/media/288145/downl oad Fact sheet for Patients: https://www.fda.gov/media/308674/downl oad Methodology: Isothermal Nucleic Acid Amplification Culture, Respiratory Order: [id number] Status: Final result Visible to patient: No (not released) Next appt: Today at 02:30 PM in Radiology (STV MRI RM 1 (1.5T)) Specimen Information: Sputum Aspirated 0 Result Notes Component 07/24/21 9131 Specimen Description .ASPIRATED SPUTUM Direct Exam < 10 EPITHELIAL CELLS/LPF Direct Exam >25 NEUTROPHILS/LPF Direct Exam MANY GRAM NEGATIVE RODS Abnormal Culture KLEBSIELLA AEROGENES HEAVY GROWTH Abnormal Culture NO NORMAL ROB Resulting Agency [facility] [place] Susceptibility Klebsiella aerogenes (1) Antibiotic [...] patient. Please call with questions. Jany Francis, TIRE MECHANIC - DISINTEGRATOR ATTESTATION: I have discussed the case, including pertinent history and exam findings with the TIRE MECHANIC. I have evaluated the History, physical findings and pictures of the patient and the coffey elements of the encounter have been performed by me. I have reviewed the laboratory data, other diagnostic studies and discussed them with the TIRE MECHANIC. I have updated the medical record where necessary. I agree with the assessment, plan and orders as documented by the TIRE MECHANIC. Seth Stokes MD. 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 [...] MD Department of Internal Medicine/ Critical care [facility]) 08/08/2021, 7:18 AM Attending Physician Statement [...] this chart was generated using voice recognition Jobzella dictation software. Although every effort was made to ensure the accuracy of this automated clam treader, some errors in clam treader may have occurred. Neurosurgery attending Supervised passive [...] Anthropometric Measures: Height: 5' 5 (165.1 cm) Blair Body Weight (IBW): 125 lbs (57 kg) [...] CARE NURSING ASSESSMENT Patient: Meg Georges Room: [address] [place] [address] Reason For Consult Goals of care evaluation Distress management Guidance and support Facilitate communications Assistance in coordinating care Code Status: Full Code Impression: Meg Georges is a 56 y.o. 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 Goals/Plan of care Education/support to [...] to call us as needed. Update given. Infusion Nurse Leeann UREÑA, RN, ONN-CG [place] Office: [phone] [place] Office: [phone] [facility] Office: [phone] For Symptom Management Clinic scheduling please call [phone] Images from the original note were not included. [facility] -Progress Note Today's Date and Time: 08/07/2021, [...] prior to surgical intervention. Infection Control Recommendations Elizabeth Precautions Isolate for Covid until 07-23-21 Antimicrobial [...] through 08-20-21. Patient was transferred back to [facility] on 07-14-21 because of a positive Covid [...] PHLEGMON performed by Alisia Crump DO at [facility] OR CHOLECYSTECTOMY EYE SURGERY [address] shunt for open angle glaucoma. MRI compatible- device is all silicone LAMINECTOMY 07/06/2021 Posterior C1, LEFT C2 RHIZOTOMY, EXPLORATION OF EPIDURAL PHLEGMON PICC INSERTION VASCULAR ACCESS TEAM 07/10/2021 SHOULDER SURGERY right TRACHEOSTOMY 07/30/2021 TRACHEOSTOMY N/A 07/30/2021 TRACHEOTOMY performed by Ercia Santiago MD at [facility] OR UPPER GASTROINTESTINAL ENDOSCOPY N/A 07/02/2021 EGD ESOPHAGOGASTRODUODENOSCOPY performed by Hari Wagner MD at [facility] Endoscopy Medications: QUEtiapine 25 mg [...] Friends and Family: Not on file Attends [employer] Services: Not on file Active Member of [...] Decision Making-Imaging: No new imaging Medical Decision Tubahu-Jizovnqi-Nawbt: SARS-CoV-2, Rapid COVID-19, Rapid Collected: 07/13/21 4676 Result status: Final Resulting lab: [facility] Reference range: Not Detected Value: DETECTED [...] this assay. Fact sheet for Healthcare Providers: https://www.fda.gov/media/474776/downl oad Fact sheet for Patients: https://www.fda.gov/media/255131/downl oad Methodology: Isothermal Nucleic Acid Amplification Culture, Respiratory Order: [id number] Status: Final result Visible to patient: No [...] Abnormal Culture NO NORMAL ROB Resulting Agency [facility] [place] Susceptibility Klebsiella aerogenes (1) Antibiotic [...] Patient's name: Meg Georges Patient's account/billing number: [id number] Patient's Date of : 1965 Age: 56 [...] patient was sent to the ED in [facility] from outpatient infusion center where she [...] Date 08/07/21 0000 - 08/07/21 2359 Shift [id number] 5578-8873 5644-6785 24 Hour Total INTAKE I.V.(mL/kg) 382.5(6.4) 382.5(6.4) [...] Humidification Source: HME 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 [...] MD Department of Internal Medicine/ Critical care [facility]) 08/07/2021, 7:58 AM Attending Physician Statement [...] this chart was generated using voice recognition Youxinpaion dictation software. Although every effort was made to ensure the accuracy of this automated clam treader, some errors in clam treader may have occurred. Neurosurgery NATE/Resident Daily Progress [...] elective for C1/2 fusion tentatively on 08/22 X.Vaishali Crump DO Neurosurgeon [place] [facility] reconsult Meg Georges is a 56 [...] No results for input(s): LABIRON, TIBC, FERRITIN, QKJAPNJV75, FOLATE, OCCULTBLD in the last 72 hours. BMP: Recent Labs 08/04/21 0440 08/05/21 0438 08/06/21 0344 NA 141 143 143 K 3.5* 3.5* 3.6* CL 108* 109* 109* CO2 23 23 BUN 17 14 11 CREATININE [...] me with any questions or concerns. Valery Vallejo Aldair PGY-1 Internal Medicine [place], [place] 3:59 PM 08/06/2021 Associated attestation - Leigh Mcnitosh MD - 08/07/2021 1:12 AM EDT Attending [...] with appropriate modifications. Leigh Mcintosh MD Gastroenterology [facility], [place], [place] Images from the original note were not included. [facility] -Progress Note Today's Date and Time: 08/06/2021, [...] prior to surgical intervention. Infection Control Recommendations Elizabeth Precautions Isolate for Covid until 07-23-21 Antimicrobial [...] through 08-20-21. Patient was transferred back to [facility] on 07-14-21 because of a positive Covid [...] PHLEGMON performed by Alisia Crump DO at [facility] OR CHOLECYSTECTOMY EYE SURGERY [address] shunt for open angle glaucoma. MRI compatible- device is all silicone LAMINECTOMY 07/06/2021 Posterior C1, LEFT C2 RHIZOTOMY, EXPLORATION OF EPIDURAL PHLEGMON PICC INSERTION VASCULAR ACCESS TEAM 07/10/2021 SHOULDER SURGERY right TRACHEOSTOMY 07/30/2021 TRACHEOSTOMY N/A 07/30/2021 TRACHEOTOMY performed by Erica Santiago MD at [facility] OR UPPER GASTROINTESTINAL ENDOSCOPY N/A 07/02/2021 EGD ESOPHAGOGASTRODUODENOSCOPY performed by Hair Wagner MD at [facility] Endoscopy Medications: insulin glargine 15 Units SubCUTAneous [...] Friends and Family: Not on file Attends [employer] Services: Not on file Active Member of [...] Decision Making-Imaging: No new imaging Medical Decision Hcuvin-Dtycqgoq-Iwqto: SARS-CoV-2, Rapid COVID-19, Rapid Collected: 07/13/21 6267 Result status: Final Resulting lab: [facility] Reference range: Not Detected Value: DETECTED [...] this assay. Fact sheet for Healthcare Providers: https://www.fda.gov/media/604588/downl oad Fact sheet for Patients: https://www.fda.gov/media/136076/downl oad Methodology: Isothermal Nucleic Acid Amplification Culture, Respiratory Order: [id number] Status: Final result Visible to patient: No [...] Abnormal Culture NO NORMAL ROB Resulting Agency [facility] [place] Susceptibility Klebsiella aerogenes (1) Antibiotic [...] patient. Please call with questions. Jany Francis, TIRE MECHANIC - DISINTEGRATOR ATTESTATION: I have discussed the case, including pertinent history and exam findings with the TIRE MECHANIC. I have evaluated the History, physical findings and pictures of the patient and the coffey elements of the encounter have been performed by me. I have reviewed the laboratory data, other diagnostic studies and discussed them with the TIRE MECHANIC. I have updated the medical record where necessary. I agree with the assessment, plan and orders as documented by the TIRE MECHANIC. Seth Stokes MD. Critical Care Team - Daily Progress Note Date and time: 08/06/2021 7:27 AM Patient's name: Meg Georges Patient's account/billing number: [id number] Patient's Date of : 1965 Age: 56 [...] patient was sent to the ED in [facility] from outpatient infusion center where she [...] Date 08/06/21 0000 - 08/06/21 2359 Shift [id number] 2567-7886 6377-1348 24 Hour Total INTAKE I.V.(mL/kg) 244.5(4) 244.5(4) [...] Results Component Value Date PHART 7.406 07/06/2021 [id number] 34.8 07/06/2021 PO2ART 279.0 07/06/2021 [id number] 21.4 07/06/2021 [id number] 99.4 07/06/2021 FIO2 30.0 08/05/2021 Lactic Acid: Lab Results Component Value Date LACTA 1.0 07/13/2021 LACTA 1.6 06/28/2021 DATA: Complete Blood Count: Recent Labs 08/04/210 08/05/2143708/06/21 0344 WBC 10.5 9.5 12.3* HGB 8.0* [...] No results for input(s): LABIRON, TIBC, FERRITIN, [id number], FOLATE, OCCULTBLD in the last 72 hours. [...] MD Department of Internal Medicine/ Critical care [facility]) 08/06/2021, 7:27 AM Attending Physician Statement [...] this chart was generated using voice recognition You[employer]in[employer] dictation software. Although every effort was made to ensure the accuracy of this automated clam treader, some errors in clam treader may have occurred. Images from the original note were not included. Critical Care Team - Daily Progress Note Date and time: 08/05/2021 1:52 PM Patient's name: Meg Georges Patient's account/billing number: [id number] Patient's Date of : 1965 Age: 56 [...] degree Ulcer prophylaxis: [] PPI Agent, [x] T6Evuen, [] Sucralfate, [] Other: Glycemic control: Controlled [...] patient was sent to the ED in [facility] from outpatient infusion center where she [...] Date 08/05/21 0000 - 08/05/21 2359 Shift [id number] 6611-2612 7961-8722 24 Hour Total INTAKE I.V.(mL/kg) 223.2(3.5) 86.6(1.4) [...] Results Component Value Date PHART 7.406 07/06/2021 [id number] 34.8 07/06/2021 PO2ART 279.0 07/06/2021 IFJ6NRP 21.4 07/06/2021 [id number] 99.4 07/06/2021 FIO2 30.0 08/05/2021 Lactic Acid: Lab Results Component Value Date LACTA 1.0 07/13/2021 LACTA 1.6 06/28/2021 DATA: Complete Blood Count: Recent Labs 08/03/2144508/04/21 04408/05/21437 WBC 11.9* 10.5 9.5 HGB 8.3* 8.0* [...] 23.9 06/28/2021 Basal Metabolic Profile: Recent Labs 08/03/2144508/04/2143908/05/21437 NA 139 141 143 K 3.6* 3.5* [...] No results for input(s): LABIRON, TIBC, FERRITIN, [id number], FOLATE, OCCULTBLD in the last 72 hours. [...] MD Department of Internal Medicine/ Critical care [facility]) 08/05/2021, 1:52 PM Associated attestation - Aniket Padron MD - 08/05/2021 4:24 PM EDT Attending Physician Statement I have discussed the case of Meg Georges, including pertinent history and exam findings with the resident/fellow/medical student/CERTIFIED CYTOTECHNOLOGIST/PA. I have seen and examined the patient and the coffey elements of the encounter have been performed by me. I agree with the assessment, plan and orders as documented by the resident/fellow/medical student/CERTIFIED CYTOTECHNOLOGIST/PA With changes made to the note as [...] were not included. [facility] -Progress Note Today's Date and Time: 08/05/2021, [...] placed 07/30/21 per ENT Infection Control Recommendations [facility] Precautions Isolate for Covid until 07-23-21 Antimicrobial [...] through 08-20-21. Patient was transferred back to [facility] on 07-14-21 because of a positive Covid [...] PHLEGMON performed by Alisia Crump DO at [facility] OR CHOLECYSTECTOMY EYE SURGERY [address] shunt for open angle glaucoma. MRI compatible- device is all silicone LAMINECTOMY 07/06/2021 Posterior C1, LEFT C2 RHIZOTOMY, EXPLORATION OF EPIDURAL PHLEGMON PICC INSERTION VASCULAR ACCESS TEAM 07/10/2021 SHOULDER SURGERY right TRACHEOSTOMY 07/30/2021 TRACHEOSTOMY N/A 07/30/2021 TRACHEOTOMY performed by Erica Santiago MD at [facility] OR UPPER GASTROINTESTINAL ENDOSCOPY N/A 07/02/2021 EGD ESOPHAGOGASTRODUODENOSCOPY performed by Hari Wagner MD at [facility] Endoscopy Medications: insulin glargine 20 [...] Friends and Family: Not on file Attends [employer] Services: Not on file Active Member of [...] Decision Making-Imaging: No new imaging Medical Decision Dlvhqe-Zthrpnxr-Pwqhs: SARS-CoV-2, Rapid COVID-19, Rapid Collected: 07/13/21 3805 Result status: Final Resulting lab: [facility] Reference range: Not Detected Value: DETECTED [...] this assay. Fact sheet for Healthcare Providers: https://www.fda.gov/media/511410/downl oad Fact sheet for Patients: https://www.fda.gov/media/741063/downl oad Methodology: Isothermal Nucleic Acid Amplification Culture, Respiratory Order: [id number] Status: Final result Visible to patient: No [...] Abnormal Culture NO NORMAL ROB Resulting Agency [facility] [place] Susceptibility Klebsiella aerogenes (1) Antibiotic [...] were not included. [facility] -Progress Note Today's Date and Time: 08/04/2021, [...] placed 07/30/21 per ENT Infection Control Recommendations Elizabeth Precautions Isolate for Covid until 07-23-21 Antimicrobial [...] through 08-20-21. Patient was transferred back to [facility] on 07-14-21 because of a positive Covid [...] PHLEGMON performed by Alisia Crump DO at [facility] OR CHOLECYSTECTOMY EYE SURGERY [address] shunt for open angle glaucoma. MRI compatible- device is all silicone LAMINECTOMY 07/06/2021 Posterior C1, LEFT C2 RHIZOTOMY, EXPLORATION OF EPIDURAL PHLEGMON PICC INSERTION VASCULAR ACCESS TEAM 07/10/2021 SHOULDER SURGERY right TRACHEOSTOMY 07/30/2021 TRACHEOSTOMY N/A 07/30/2021 TRACHEOTOMY performed by Erica Santiago MD at [facility] OR UPPER GASTROINTESTINAL ENDOSCOPY N/A 07/02/2021 EGD ESOPHAGOGASTRODUODENOSCOPY performed by Hari Wagner MD at [facility] Endoscopy Medications: insulin glargine 20 [...] Friends and Family: Not on file Attends [employer] Services: Not on file Active Member of [...] Decision Making-Imaging: No new imaging Medical Decision Kgxapr-Gxfjvoqa-Qywjk: SARS-CoV-2, Rapid COVID-19, Rapid Collected: 07/13/21 5934 Result status: Final Resulting lab: [facility] Reference range: Not Detected Value: DETECTED [...] this assay. Fact sheet for Healthcare Providers: https://www.fda.gov/media/129357/downl oad Fact sheet for Patients: https://www.fda.gov/media/015400/downl oad Methodology: Isothermal Nucleic Acid Amplification Culture, Respiratory Order: [id number] Status: Final result Visible to patient: No (not released) Next appt: Today at 02:30 PM in Radiology (STV MRI RM 1 (1.5T)) Specimen Information: Sputum Aspirated 0 Result Notes Component 07/24/21 5829 Specimen Description .ASPIRATED SPUTUM Direct Exam < 10 EPITHELIAL CELLS/LPF Direct Exam >25 NEUTROPHILS/LPF Direct Exam MANY GRAM NEGATIVE RODS Abnormal Culture KLEBSIELLA AEROGENES HEAVY GROWTH Abnormal Culture NO NORMAL ROB Resulting Agency [facility] [place] Susceptibility Klebsiella aerogenes (1) Antibiotic [...] concerns. Palliative Care Team is available via [employer] or via phone. History of Present Illness [...] PHLEGMON performed by Alisia Crump DO at [facility] OR CHOLECYSTECTOMY EYE SURGERY [address] shunt for open angle glaucoma. MRI compatible- device is all silicone LAMINECTOMY 07/06/2021 Posterior C1, LEFT C2 RHIZOTOMY, EXPLORATION OF EPIDURAL PHLEGMON PICC INSERTION VASCULAR ACCESS TEAM 07/10/2021 SHOULDER SURGERY right TRACHEOSTOMY 07/30/2021 TRACHEOSTOMY N/A 07/30/2021 TRACHEOTOMY performed by Erica Santiago MD at [facility] OR UPPER GASTROINTESTINAL ENDOSCOPY N/A 07/02/2021 EGD ESOPHAGOGASTRODUODENOSCOPY performed by Hari Wagner MD at [facility] Endoscopy FAMILY HISTORY Family History [...] in the care of Ms. Georges . [facility] Palliative Care Number [phone] [facility] Palliative Care Number [phone] [facility] Palliative Care Number [phone] Please call with any palliative questions or [...] tablet 25 mg 25 mg Oral BID Skylar Coyle MD 25 mg at 08/03/21 [...] Tami Vega MD 325 mg at 07/24/21 09 [Held by provider] calcium carbonate-vitamin D3 (CALTRATE) 600-400 MG-UNIT per tab 2 tablet 2 tablet Oral Daily Becki Chang MD 2 tablet at 07/23/21 1209 sodium chloride flush 0.9 % injection 5-40 mL 5-40 mL IntraVENous PRN Skylar Coyle MD 10 mL at 08/03/212005 ondansetron (ZOFRAN-ODT) disintegrating tablet 4 mg 4 mg Oral Q8H PRN Skyalr Coyle MD 4 mg at 07/14/21 1834 [...] Chilo Mccoy and Dr. Angel Krueger [address] [facility] [address] OPTION 2: [facility] ENT [address] [place] [address], [address] [place] [address] Appointment scheduling: ISRRAEL MCGRATH MD Pediatric Otolaryngology-Head and Neck Surgery [facility] Otolaryngology group Office ph# [phone] Also available in [employer] Pt trach changed without incident, #7.0 XLT, per Dr. Mcgrath. Trach site red, Mepilex to be placed. Pt tolerated well. Images from the original note were not included. Critical Care Team - Daily Progress Note Date and time: 08/04/2021 8:43 AM Patient's name: Meg Georges Patient's account/billing number: [id number] Patient's Date of : 1965 Age: 56 y.o. Date of Admission: 07/14/2021 4:12 PM Length of stay during current admission: Primary Care Physician: Neri Santa Sr, DO [...] no Ulcer prophylaxis: [x] PPI Agent, [] N1Onwnk, [] Sucralfate, [] Other: Glycemic control: controlled; [...] patient was sent to the ED in [facility] from outpatient infusion center where she [...] Date 08/04/21 0000 - 08/04/21 2359 Shift 3551-2090 2288-0559 5653-6529 24 Hour Total INTAKE I.V.(mL/kg) 376.1(6) 376.1(6) [...] CO2: 37 (%) Position: Semi-Simon's Humidification Source: [facility] Lab Results Component Value Date PHART 7.406 07/06/2021 [id number] 34.8 07/06/2021 PO2ART 279.0 07/06/2021 QFY7TWV 21.4 07/06/2021 F5CDTLNP 99.4 07/06/2021 FIO2 30.0 08/03/2021 Lactic Acid: Lab Results Component Value Date LACTA 1.0 07/13/2021 LACTA 1.6 06/28/2021 DATA: Complete Blood Count: Recent Labs 08/02/21 0454 08/03/216 08/04/21439 WBC 12.3* 11.9* 10.5 HGB 8.0* 8.3* [...] 141 K 3.3* 3.6* 3.5* BUN 15 17 CREATININE 0.67 0.60 0.57 CL 106 107 108* CO2 Magnesium: Lab Results Component Value Date MG 1.9 08/04/2021 MG 1.7 08/02/2021 MG 1.7 08/01/2021 Phosphorus: Lab Results Component Value Date PHOS 1.9 07/17/2021 S. Calcium: Recent Labs 08/04/21 0440 CALCIUM 8.1* S. Ionized Calcium:No results for [...] No results for input(s): LABIRON, TIBC, FERRITIN, VYWFRHSV14, FOLATE, OCCULTBLD in the last 72 hours. [...] MD Department of Internal Medicine/ Critical care [facility]) 08/04/2021, 8:43 AM Associated attestation - Aniket Padron MD - 08/04/2021 1:39 PM EDT Attending Physician Statement I have discussed the case of Meg Georges, including pertinent history and exam findings with the resident/fellow/medical student/CERTIFIED CYTOTECHNOLOGIST/PA. I have seen and examined the patient and the coffey elements of the encounter have been performed by me. I agree with the assessment, plan and orders as documented by the resident/fellow/medical student/CERTIFIED CYTOTECHNOLOGIST/PA With changes made to the note as [...] Status: At risk for malnutrition (Comment) (07/30/21 3423) Context: Acute Illness Findings of the 6 clinical characteristics of malnutrition: Energy Intake: No significant decrease in energy intake (with use of TF) Weight Loss: No significant weight loss Body Fat Loss: No significant body fat loss Muscle Mass Loss: Unable to assess Fluid Accumulation: Mild Extremities,Generalized Supervisor Lace Tearing Strength: Not Performed Nutrition Assessment: Remains intubated [...] Anthropometric Measures: Height: 5' 5 (165.1 cm) Blair Body Weight (IBW): 125 lbs (57 kg) Admission Body Weight: 133 lb 13.1 oz (60.7 kg) Current Body Weight: 137 lb 9.2 oz (62.4 kg) [facility] 110.1 % IBW. Weight Source: [...] Too soon to determine Ashwini Felix MS, ALYSSA, LD Contact: [phone] Otolaryngology staff note POD 4 s/p tracheostomy placement Patient was seen and examined this morning On vent, sedated, though weaning 7.0 Shiley XLT cuffed, in good position. Some dried blood around trach but there is no peristomal wound breakdown c-collar still in place Plan for trach change on POD 5 (Friday08/04/21) REBEKA Wills CNP Pediatric Otolaryngology-Head and Neck Surgery [facility] Otolaryngology group Office ph# [phone] Also available in [employer] Images from the original note were not included. [facility] -Progress Note Today's Date and Time: 08/03/2021, [...] placed 07/30/21 per ENT Infection Control Recommendations Elizabeth Precautions Isolate for Covid until 07-23-21 Antimicrobial [...] through 08-20-21. Patient was transferred back to [facility] on 07-14-21 because of a positive Covid [...] PHLEGMON performed by Alisia Crump DO at [facility] OR CHOLECYSTECTOMY EYE SURGERY [address] shunt for open angle glaucoma. MRI compatible- device is all silicone LAMINECTOMY 07/06/2021 Posterior C1, LEFT C2 RHIZOTOMY, EXPLORATION OF EPIDURAL PHLEGMON PICC INSERTION VASCULAR ACCESS TEAM 07/10/2021 SHOULDER SURGERY right TRACHEOSTOMY 07/30/2021 TRACHEOSTOMY N/A 07/30/2021 TRACHEOTOMY performed by Erica Santiago MD at [facility] OR UPPER GASTROINTESTINAL ENDOSCOPY N/A 07/02/2021 EGD ESOPHAGOGASTRODUODENOSCOPY performed by Hari Wagner MD at [facility] Endoscopy Medications: insulin lispro 0-18 [...] Friends and Family: Not on file Attends [employer] Services: Not on file Active Member of [...] CBC with Differential: Recent Labs 08/02/21 0454 08/03/216 WBC 12.3* 11.9* HGB 8.0* 8.3* HCT [...] are unchanged. Suggest ultrasound correlation. Medical Decision Yboyfw-Xcpckxoy-Eidrk: SARS-CoV-2, Rapid COVID-19, Rapid Collected: 07/13/21 4549 Result status: Final Resulting lab: [facility] Reference range: Not Detected Value: DETECTED [...] this assay. Fact sheet for Healthcare Providers: https://www.fda.gov/media/864037/downl oad Fact sheet for Patients: https://www.fda.gov/media/765516/downl oad Methodology: Isothermal Nucleic Acid Amplification Culture, Respiratory Order: [id number] Status: Final result Visible to patient: No [...] Abnormal Culture NO NORMAL ROB Resulting Agency [facility] [place] Susceptibility Klebsiella aerogenes (1) Antibiotic Interpretation Microscan [...] data were reviewed Discussed with nursing Staff, communications planner Infection Control and Prevention measures reviewed All prior entries were reviewed Administer medications as ordered Prognosis: Very Guarded Discharge planning reviewed Follow up as outpatient. Thank you for allowing us to participate in the care of this patient. Please call with questions. Jany Francis, TIRE MECHANIC - DISINTEGRATOR ATTESTATION: I have discussed the case, including pertinent history and exam findings with the TIRE MECHANIC. I have evaluated the History, physical findings and pictures of the patient and the coffey elements of the encounter have been performed by me. I have reviewed the laboratory data, other diagnostic studies and discussed them with the TIRE MECHANIC. I have updated the medical record where necessary. I agree with the assessment, plan and orders as documented by the TIRE MECHANIC. Seth Stokes MD. Pager: - Office: Images from the original note were not included. Critical Care Team - Daily Progress Note Date and time: 08/03/2021 7:48 AM Patient's name: Meg Georges Patient's account/billing number: [id number] Patient's Date of : 1965 Age: 56 [...] yes Ulcer prophylaxis: [] PPI Agent, [x] T7Losgs, [] Sucralfate, [] Other: Glycemic control: high ISS, lantus 16 subq is held Spontaneous breathing trial: trach Bowel regimen/urine output: milk of mag Indwelling catheter/lines: yes De-escalation: yes CURRENT VENTILATION STATUS: [x] Ventilator [] BIPAP [] Nasal Cannula [] Room Air IF INTUBATED, ET TUBE MARKING AT LOWER LIP: [facility] SEDATION: Precedex gtt [] Propofol gtt [...] Date 08/03/21 0000 - 08/03/21 2359 Shift [id number] 9393-5260 1525-2750 24 Hour Total INTAKE I.V.(mL/kg) 93.8(1.5) 93.8(1.5) [...] CO2: 30 (%) Position: Semi-Simon's Humidification Source: [facility] Lab Results Component Value Date PHART 7.406 07/06/2021 IQX0LPK 34.8 07/06/2021 PO2ART 279.0 07/06/2021 [id number] 21.4 07/06/2021 [id number] 99.4 07/06/2021 FIO2 30.0 08/03/2021 Lactic Acid: Lab Results Component Value Date LACTA 1.0 07/13/2021 LACTA 1.6 06/28/2021 DATA: Complete Blood Count: Recent Labs 08/01/2145108/02/2145308/03/216 WBC 14.0* 12.3* 11.9* HGB 9.1* 8.0* [...] 23.9 06/28/2021 Basal Metabolic Profile: Recent Labs 08/01/212 08/02/214 08/03/21 0446 NA 138 137 139 K 3.2* 3.3* 3.6* BUN 15 15 15 CREATININE 0.72 0.67 0.60 CL 105 106 107 CO2 Magnesium: Lab Results Component Value Date MG 1.7 08/02/2021 MG 1.7 08/01/2021 MG 1.6 07/31/2021 Phosphorus: Lab Results Component Value Date PHOS 1.9 07/17/2021 S. Calcium: Recent Labs 08/03/21 0446 CALCIUM 8.3* S. Ionized Calcium:No results for [...] No results for input(s): LABIRON, TIBC, FERRITIN, [id number], FOLATE, OCCULTBLD in the last 72 hours. [...] MD Department of Internal Medicine/ Critical care [facility]) 08/03/2021, 7:48 AM Associated attestation - Aniket Padron MD - 08/03/2021 3:44 PM EDT Attending Physician Statement I have discussed the case of Meg Georges, including pertinent history and exam findings with the resident/fellow/medical student/CERTIFIED CYTOTECHNOLOGIST/PA. I have seen and examined the patient and the coffey elements of the encounter have been performed by me. I agree with the assessment, plan and orders as documented by the resident/fellow/medical student/CERTIFIED CYTOTECHNOLOGIST/PA With changes made to the note as [...] cm^3 Wound Healing % 79 Wound Assessment Dusky;Ramireno/red;Fibrinous Drainage Amount Scant Drainage Description Serosanguinous Odor [...] Pediatric Otolaryngology-Head and Neck Surgery [facility] Otolaryngology group Office ph# [phone] Also available in [employer] Images from the original note were not included. [facility] -Progress Note Today's Date and Time: 08/02/2021, [...] placed 07/30/21 per ENT Infection Control Recommendations Elizabeth Precautions Isolate for Covid until 07-23-21 Antimicrobial [...] through 08-20-21. Patient was transferred back to [facility] on 07-14-21 because of a positive Covid [...] PHLEGMON performed by Alisia Crump DO at [facility] OR CHOLECYSTECTOMY EYE SURGERY [address] shunt for open angle glaucoma. MRI compatible- device is all silicone LAMINECTOMY 07/06/2021 Posterior C1, LEFT C2 RHIZOTOMY, EXPLORATION OF EPIDURAL PHLEGMON PICC INSERTION VASCULAR ACCESS TEAM 07/10/2021 SHOULDER SURGERY right TRACHEOSTOMY 07/30/2021 TRACHEOSTOMY N/A 07/30/2021 TRACHEOTOMY performed by Erica Santiago MD at [facility] OR UPPER GASTROINTESTINAL ENDOSCOPY N/A 07/02/2021 EGD ESOPHAGOGASTRODUODENOSCOPY performed by Hari Wagner MD at [facility] Endoscopy Medications: insulin lispro 0-18 [...] Friends and Family: Not on file Attends [employer] Services: Not on file Active Member of [...] 5 8 BMP: Recent Labs 08/01/21 0452 08/02/21453 NA 138 137 K 3.2* 3.3* CL [...] are unchanged. Suggest ultrasound correlation. Medical Decision Tbojvz-Bdjducns-Gthxg: SARS-CoV-2, Rapid COVID-19, Rapid Collected: 07/13/21 0613 Result status: Final Resulting lab: [facility] Reference range: Not Detected Value: DETECTED [...] this assay. Fact sheet for Healthcare Providers: https://www.fda.gov/media/003990/downl oad Fact sheet for Patients: https://www.fda.gov/media/812913/downl oad Methodology: Isothermal Nucleic Acid Amplification Culture, Respiratory Order: [id number] Status: Final result Visible to patient: No [...] Abnormal Culture NO NORMAL ROB Resulting Agency [facility] [place] Susceptibility Klebsiella aerogenes (1) Antibiotic [...] data were reviewed Discussed with nursing Staff, communications planner Infection Control and Prevention measures reviewed All prior entries were reviewed Administer medications as ordered Prognosis: Very Guarded Discharge planning reviewed Follow up as outpatient. Thank you for allowing us to participate in the care of this patient. Please call with questions. Jany Francis, TIRE MECHANIC - DISINTEGRATOR ATTESTATION: I have discussed the case, including pertinent history and exam findings with the TIRE MECHANIC. I have evaluated the History, physical findings and pictures of the patient and the coffey elements of the encounter have been performed by me. I have reviewed the laboratory data, other diagnostic studies and discussed them with the TIRE MECHANIC. I have updated the medical record where necessary. I agree with the assessment, plan and orders as documented by the TIRE MECHANIC. Seth Stokes MD. Pager: - Office: Critical Care Team - Daily Progress Note Date and time: 08/02/2021 7:50 AM Patient's name: Meg Georges Patient's account/billing number: [id number] Patient's Date of : 1965 Age: 56 [...] yes Ulcer prophylaxis: [] PPI Agent, [x] G7Uvfgg, [] Sucralfate, [] Other: Glycemic control: high [...] Date 08/02/21 0000 - 08/02/21 2359 Shift 1519-9186 4550-7301 6785-9841 24 Hour Total INTAKE I.V.(mL/kg) 109.3(1.8) 109.3(1.8) [...] CO2: 32 (%) Position: Semi-Simon's Humidification Source: [facility] Lab Results Component Value Date PHART 7.406 07/06/2021 [id number] 34.8 07/06/2021 PO2ART 279.0 07/06/2021 GNB2HVO 21.4 07/06/2021 [id number] 99.4 07/06/2021 FIO2 30.0 08/02/2021 Lactic Acid: Lab Results Component Value Date LACTA 1.0 07/13/2021 LACTA 1.6 06/28/2021 DATA: Complete Blood Count: Recent Labs 07/31/21 0519 07/31/21 0519 07/31/21 1854 08/01/21 0452 08/02/21453 WBC 14.0* -- -- 14.0* 12.3* HGB [...] 3 Blood Glucose: Recent Labs 07/31/21 0519 08/01/21 0452 08/02/21 0454 GLUCOSE 209* 212* 247* HgBA1c: Lab Results Component Value Date LABA1C 9.4 06/28/2021 TSH: Lab Results Component Value Date TSH 2.06 07/24/2021 ANEMIA STUDIES No results for input(s): LABIRON, TIBC, FERRITIN, [id number], FOLATE, OCCULTBLD in the last 72 hours. [...] MD Department of Internal Medicine/ Critical care [facility]) 08/02/2021, 7:50 AM Associated attestation - Aniket Padron MD - 08/02/2021 4:40 PM EDT Attending Physician Statement I have discussed the case of Meg Georges, including pertinent history and exam findings with the resident/fellow/medical student/CERTIFIED CYTOTECHNOLOGIST/PA. I have seen and examined the patient and the coffey elements of the encounter have been performed by me. I agree with the assessment, plan and orders as documented by the resident/fellow/medical student/CERTIFIED CYTOTECHNOLOGIST/PA With changes made to the note as [...] Pediatric Otolaryngology-Head and Neck Surgery [facility] Otolaryngology group Office ph# [phone] Also available in [employer] Images from the original note were not [...] continue to follow. Healthcare power of deputy attorney general placed on patient's chart. OVERNIGHT EVENTS: Patient [...] PHLEGMON performed by Alisia Crump DO at [facility] OR CHOLECYSTECTOMY EYE SURGERY [address] shunt for open angle glaucoma. MRI compatible- device is all silicone LAMINECTOMY 07/06/2021 Posterior C1, LEFT C2 RHIZOTOMY, EXPLORATION OF EPIDURAL PHLEGMON PICC INSERTION VASCULAR ACCESS TEAM 07/10/2021 SHOULDER SURGERY right TRACHEOSTOMY 07/30/2021 TRACHEOSTOMY N/A 07/30/2021 TRACHEOTOMY performed by Erica Santiago MD at [facility] OR UPPER GASTROINTESTINAL ENDOSCOPY N/A 07/02/2021 EGD ESOPHAGOGASTRODUODENOSCOPY performed by Hari Wagner MD at [facility] Endoscopy FAMILY HISTORY Family History [...] Active Problems: CIDP (chronic inflammatory demyelinating polyneuropathy) ([facility]) Bacteremia Hypothyroidism Hypokalemia Type 2 diabetes mellitus with diabetic polyneuropathy ([facility]) Primary hypertension Metabolic encephalopathy MSSA (methicillin susceptible Staphylococcus aureus) septicemia ([facility]) CRP elevated Bandemia Septic arthritis of cervical spine ([facility]) 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 Palliative Care Team is available via perfect serve or via phone. Images from the original note were not included. [facility] -Progress Note Today's Date and Time: 08/01/2021, [...] placed 07/30/21 per ENT Infection Control Recommendations Elizabeth Precautions Isolate for Covid until 07-23-21 Antimicrobial [...] through 08-20-21. Patient was transferred back to [facility] on 07-14-21 because of a positive Covid [...] PHLEGMON performed by Alisia Crump DO at [facility] OR CHOLECYSTECTOMY EYE SURGERY [address] shunt for open angle glaucoma. MRI compatible- device is all silicone LAMINECTOMY 07/06/2021 Posterior C1, LEFT C2 RHIZOTOMY, EXPLORATION OF EPIDURAL PHLEGMON PICC INSERTION VASCULAR ACCESS TEAM 07/10/2021 SHOULDER SURGERY right TRACHEOSTOMY 07/30/2021 TRACHEOSTOMY N/A 07/30/2021 TRACHEOTOMY performed by Erica Santiago MD at [facility] OR UPPER GASTROINTESTINAL ENDOSCOPY N/A 07/02/2021 EGD ESOPHAGOGASTRODUODENOSCOPY performed by Hari Wagner MD at [facility] Endoscopy Medications: insulin lispro 0-12 [...] Friends and Family: Not on file Attends [employer] Services: Not on file Active Member of [...] following labs: CBC with Differential: Recent Labs 07/31/2151807/31/2119 07/31/21 1854 08/01/21 0452 WBC 14.0* -- [...] are unchanged. Suggest ultrasound correlation. Medical Decision Krptos-Xhpvgpng-Rgdxg: SARS-CoV-2, Rapid COVID-19, Rapid Collected: 07/13/21 1345 Result status: Final Resulting lab: [facility] Reference range: Not Detected Value: DETECTED [...] this assay. Fact sheet for Healthcare Providers: https://www.fda.gov/media/847500/downl oad Fact sheet for Patients: https://www.fda.gov/media/950582/downl oad Methodology: Isothermal Nucleic Acid Amplification Culture, Respiratory Order: [id number] Status: Final result Visible to patient: No (not released) Next appt: Today at 02:30 PM in Radiology (STV MRI RM 1 (1.5T)) Specimen Information: Sputum Aspirated 0 Result Notes Component 07/24/21 7325 Specimen Description .ASPIRATED SPUTUM Direct Exam < 10 EPITHELIAL CELLS/LPF Direct Exam >25 NEUTROPHILS/LPF Direct Exam MANY GRAM NEGATIVE RODS Abnormal Culture KLEBSIELLA AEROGENES HEAVY GROWTH Abnormal Culture NO NORMAL ROB Resulting Agency [facility] [place] [facility] Susceptibility Klebsiella aerogenes (1) [...] data were reviewed Discussed with nursing Staff, communications planner Infection Control and Prevention measures reviewed All prior entries were reviewed Administer medications as ordered Prognosis: Very Guarded Discharge planning reviewed Follow up as outpatient. Thank you for allowing us to participate in the care of this patient. Please call with questions. Jany Francis, TIRE MECHANIC - [facility] ATTESTATION: I have discussed the case, including pertinent history and exam findings with the TIRE MECHANIC. I have evaluated the History, physical findings and pictures of the patient and the coffey elements of the encounter have been performed by me. I have reviewed the laboratory data, other diagnostic studies and discussed them with the TIRE MECHANIC. I have updated the medical record where necessary. I agree with the assessment, plan and orders as documented by the TIRE MECHANIC. Seth Stokes MD. Pager: - Office: Critical Care Team - Daily Progress Note Date and time: 08/01/2021 8:07 AM Patient's name: Meg Georges Patient's account/billing number: [id number] Patient's Date of : 1965 Age: 56 [...] yes Ulcer prophylaxis: [] PPI Agent, [x] [id number], [] Sucralfate, [] Other: Glycemic control: medium [...] Date 08/01/21 0000 - 08/01/21 2359 Shift 4708-5552 7073-7545 1483-5920 24 Hour Total INTAKE I.V.(mL/kg) 159.6(2.6) 159.6(2.6) [...] CO2: 32 (%) Position: Semi-Simon's Humidification Source: [facility] Results Component Value Date PHART 7.406 07/06/2021 UEB9ZHQ 34.8 07/06/2021 PO2ART 279.0 07/06/2021 LVK7UJR 21.4 07/06/2021 B0QJZQOD 99.4 07/06/2021 FIO2 30.0 07/30/2021 Lactic Acid: Lab Results Component Value Date LACTA 1.0 07/13/2021 LACTA 1.6 06/28/2021 DATA: Complete Blood Count: Recent Labs 07/30/21 0424 07/30/21 1719 07/31/21 0519 07/31/21 1854 08/01/21 0452 WBC 14.2* -- 14.0* -- 14.0* HGB [...] 23.9 06/28/2021 Basal Metabolic Profile: Recent Labs 07/30/21 0424 07/31/2151808/01/21451 NA 137 140 138 K 3.8 3.3* [...] 3 Blood Glucose: Recent Labs 07/30/21 0424 07/31/2151808/01/21451 GLUCOSE 276* 209* 212* HgBA1c: Lab Results Component Value Date LABA1C 9.4 06/28/2021 TSH: Lab Results Component Value Date TSH 2.06 07/24/2021 ANEMIA STUDIES No results for input(s): LABIRON, TIBC, FERRITIN, MFEUBIVF57, FOLATE, OCCULTBLD in the last 72 hours. [...] MD Department of Internal Medicine/ Critical care [facility]) 08/01/2021, 8:07 AM Associated attestation - Aniket Padron MD - 08/01/2021 7:15 PM EDT Attending Physician Statement I have discussed the case of Meg Georges, including pertinent history and exam findings with the resident/fellow/medical student/CERTIFIED CYTOTECHNOLOGIST/PA. I have seen and examined the patient and the coffey elements of the encounter have been performed by me. I agree with the assessment, plan and orders as documented by the resident/fellow/medical student/CERTIFIED CYTOTECHNOLOGIST/PA With changes made to the note as [...] were not included. [facility] -Progress Note Today's Date and Time: 07/31/2021, [...] 07/24/21 Recommendations: Covid treatment: Bebtelovimab infusion received 5-29-22 Decadron: Not indicated Remdesivir not indicated Actemra: [...] placed 07/30/21 per ENT Infection Control Recommendations Elizabeth Precautions Isolate for Covid until 07-23-21 Antimicrobial [...] through 08-20-21. Patient was transferred back to [facility] on 07-14-21 because of a positive Covid [...] PHLEGMON performed by Alisia Crump DO at [facility] OR CHOLECYSTECTOMY EYE SURGERY [address] shunt for open angle glaucoma. MRI compatible- device is all silicone LAMINECTOMY 07/06/2021 Posterior C1, LEFT C2 RHIZOTOMY, EXPLORATION OF EPIDURAL PHLEGMON PICC INSERTION VASCULAR ACCESS TEAM 07/10/2021 SHOULDER SURGERY right TRACHEOSTOMY 07/30/2021 TRACHEOSTOMY N/A 07/30/2021 TRACHEOTOMY performed by Erica Santiago MD at [facility] OR UPPER GASTROINTESTINAL ENDOSCOPY N/A 07/02/2021 EGD ESOPHAGOGASTRODUODENOSCOPY performed by Hari Wagner MD at [facility] Endoscopy Medications: insulin lispro 0-12 [...] Friends and Family: Not on file Attends [employer] Services: Not on file Active Member of [...] following labs: CBC with Differential: Recent Labs 07/30/2142307/30/2142307/30/21 1719 07/31/21518 WBC 14.2* -- -- 14.0* HGB 9.3* < > 9.6* 9.5* HCT 27.0* < > 29.5* 27.4* PLT 491* -- -- 502* LYMPHOPCT 26 -- -- 21* MONOPCT 4 -- -- 7 < > = values in this interval not displayed. BMP: Recent Labs 07/30/21 0424 07/31/21 05 NA 137 140 K 3.8 3.3* CL [...] are unchanged. Suggest ultrasound correlation. Medical Decision Tgqbai-Xpnstfwg-Kjsvl: SARS-CoV-2, Rapid COVID-19, Rapid Collected: 07/13/21 2531 Result status: Final Resulting lab: [facility] Reference range: Not Detected Value: DETECTED [...] this assay. Fact sheet for Healthcare Providers: https://www.fda.gov/media/298093/downl oad Fact sheet for Patients: https://www.fda.gov/media/855154/downl oad Methodology: Isothermal Nucleic Acid Amplification Culture, Respiratory Order: [id number] Status: Final result Visible to patient: No (not released) Next appt: Today at 02:30 PM in Radiology (STV MRI RM 1 (1.5T)) Specimen Information: Sputum Aspirated 0 Result Notes Component 07/24/21 0515 Specimen Description .ASPIRATED SPUTUM Direct Exam < 10 EPITHELIAL CELLS/LPF Direct Exam >25 NEUTROPHILS/LPF Direct Exam MANY GRAM NEGATIVE RODS Abnormal Culture KLEBSIELLA AEROGENES HEAVY GROWTH Abnormal Culture NO NORMAL ROB Resulting Agency [facility] Susceptibility Klebsiella aerogenes (1) Antibiotic [...] data were reviewed Discussed with nursing Staff, communications planner Infection Control and Prevention measures reviewed All prior entries were reviewed Administer medications as ordered Prognosis: Very Guarded Discharge planning reviewed Follow up as outpatient. Thank you for allowing us to participate in the care of this patient. Please call with questions. Jany Francis, TIRE MECHANIC - DISINTEGRATOR ATTESTATION: I have discussed the case, including pertinent history and exam findings with the TIRE MECHANIC. I have evaluated the History, physical findings and pictures of the patient and the coffey elements of the encounter have been performed by me. I have reviewed the laboratory data, other diagnostic studies and discussed them with the TIRE MECHANIC. I have updated the medical record where necessary. I agree with the assessment, plan and orders as documented by the TIRE MECHANIC. Seth Stokes MD. Pager: - Office: Images from the original note were not included. Occupational Therapy [facility] Occupational Therapy Not Seen Note [...] BID Skylar Coyle MD 20 mg at 07/30/211955 propofol injection 5-50 mcg/kg/min IntraVENous Continuous Skylar Coyle MD 5.1 mL/hr at 07/31/21 0724 15 mcg/kg/min at 07/31/21723 sodium chloride flush 0.9 % inject [facility] Work Phone: 07-19-2021 Hospital Discharge instructions Anna [...] Contact Information Primary Emergency Contact: Hina [facility] [place] Relation: Brother/Sister Past Surgical History: Past Surgical History: Procedure Laterality Date ACHILLES TENDON SURGERY left BACK SURGERY L 4 and 5 1995, 1996 CERVICAL FUSION N/A 07/06/2021 POSTERIOR CERVICAL C1 LAMINECTOMY. LEFT C2 RHIZOTOMY, EXPLORATION OF EPIDURAL PHLEGMON performed by Alisia Crump DO at [facility] OR CHOLECYSTECTOMY EYE SURGERY [address] shunt for open angle glaucoma. MRI compatible- device is all silicone LAMINECTOMY 07/06/2021 Posterior C1, LEFT C2 RHIZOTOMY, EXPLORATION OF EPIDURAL PHLEGMON PICC INSERTION VASCULAR ACCESS TEAM 07/10/2021 SHOULDER SURGERY right TRACHEOSTOMY 07/30/2021 TRACHEOSTOMY N/A 07/30/2021 TRACHEOTOMY performed by Erica Santiago MD at [facility] OR UPPER GASTROINTESTINAL ENDOSCOPY N/A 07/02/2021 EGD ESOPHAGOGASTRODUODENOSCOPY performed by Hari Wagner MD at [facility] Endoscopy Immunization History: There is no immunization history on file for this patient. Active Problems: Patient Active Problem List Diagnosis Code Cellulitis of left finger L03.012 Altered mental state R41.82 Encephalitis G04.90 Encephalopathy G93.40 CIDP (chronic inflammatory demyelinating polyneuropathy) ([facility]) G61.81 Sepsis ([facility]) A41.9 Bacteremia R78.81 Hypothyroidism E03.9 Hypokalemia E87.6 Type 2 diabetes mellitus with diabetic polyneuropathy ([facility]) E11.42 Primary hypertension I10 Upper GI bleed K92.2 Non-intractable vomiting R11.10 Unintentional weight loss R63.4 Metabolic encephalopathy G93.41 MSSA (methicillin susceptible Staphylococcus aureus) septicemia ([facility]) A41.01 CRP elevated R79.82 Bandemia D72.825 Allergy to multiple antibiotics Z88.1 Pyogenic inflammation of bone ([facility]) M86.9 Acute intractable headache R51.9 Septic arthritis of cervical spine ([facility]) M46.52 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 G06.1 COVID U07.1 Hypomagnesemia E83.42 Normocytic anemia D64.9 Acute respiratory failure with hypoxemia ([facility]) J96.01 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 ACP [...] Dependent Dressing Dependent Toileting Dependent Feeding Dependent Adult Crossing Guard Dependent Med Delivery crushed and via right [...] Healing % 79 08/02/21 1537 Wound Assessment Denuded;Ramireno/red 08/10/21 1200 Drainage Amount Scant 08/10/21 1200 [...] Readmission: 24 Discharging to Facility/ Agency Name: [facility] Address: [address] [place] [address] Dialysis Facility (if applicable) Name: Address: Dialysis Schedule: Phone: Fax: Hospice Home Care Coordinator/Manager Fire signature: ICIAN SECTION Prognosis: Fair Condition at [...] the diagnosis listed and that she requires Shelter Facility for less 30 days. Update Admission [...] PCP as outpatient. documented in this encounter [employer] Phone: 07-14-2021 History of Present illness Narrative Called and spoke with Jess GARVIN and gave report. Lunch tray provided - puree and thickened liquids. Pt sitting up and eating at this time. Denies further needs. Called and updated sister, Hina with status. Pt accepted to [facility] pending. documented in this encounter [employer] Work Phone: 07-10-2021 History of Present illness Narrative [...] Urology Speech Language Pathology Speech Language Pathology [facility] Cognitive/Dysphagia Treatment Note Date: 07/10/2021 Patient s Name: Meg Georges Patient Active Problem List Diagnosis Code Cellulitis of left finger L03.012 Altered mental state R41.82 Encephalitis G04.90 Encephalopathy G93.40 CIDP (chronic inflammatory demyelinating polyneuropathy) ([facility]) G61.81 Sepsis ([facility]) A41.9 Bacteremia R78.81 Hypothyroidism E03.9 Hypokalemia E87.6 Type 2 diabetes mellitus with diabetic polyneuropathy ([facility]) E11.42 Primary hypertension I10 Upper GI bleed K92.2 Non-intractable vomiting R11.10 Unintentional weight loss R63.4 Acute metabolic encephalopathy G93.41 MSSA (methicillin susceptible Staphylococcus aureus) septicemia ([facility]) A41.01 CRP elevated R79.82 Bandemia D72.825 Allergy to multiple antibiotics Z88.1 Pyogenic inflammation of bone ([facility]) M86.9 Acute intractable headache R51.9 Acute osteomyelitis of cervical spine ([facility]) M46.22 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 G06.1 Pain: 0/10 Cognitive Treatment Treatment time: 2940-4217 Subjective: [] Alert [x] Cooperative [] Confused [...] recommended at discharge. Completed by Chaitanya Pratt Peer Educator Clinician Co-signed byHina Sawyer M.S. CCC/SENIOR MARKETING ASSOCIATE Images from the original note were not included. [facility] Internal Medicine Teaching Residency Program Inpatient Daily Progress Note __ Patient: Meg Georges Date of : 1965 Acct: [id number] Room: 0146/0146-01 Admit date: 06/28/2021 Today's date: [...] neuropathy follows neurology. Presented to ED from senior care, found confused outside. Imaging negative. She complains [...] mL/hr, PRN Diagnostic Labs: CBC: Recent Labs 07/08/2161607/08/2117 07/08/21 0848 07/09/21 0532 07/10/21 0341 WBC 11.4* -- -- 11.5* 17.9* RBC 2.51* -- -- 3.11* 2.99* HGB 6.9* < > 8.1* 8.5* 8.3* HCT 21.5* < > 25.5* 27.9* 25.6* MCV 85.7 -- -- 89.7 85.6 RDW 18.6* -- -- 19.9* 20.4* PLT 328 -- -- 434 530* < > = values in this interval not displayed. BMP: Recent Labs 07/08/21 0607/09/21 0532 07/10/21 0341 NA 138 140 140 [...] PLAN Assessment and Plan: Principal Problem: Sepsis ([facility]) Active Problems: Altered mental state Encephalitis Encephalopathy CIDP (chronic inflammatory demyelinating polyneuropathy) ([facility]) Bacteremia Hypothyroidism Hypokalemia Type 2 diabetes mellitus with diabetic polyneuropathy ([facility]) Primary hypertension Upper GI bleed Non-intractable vomiting Unintentional weight loss Acute metabolic encephalopathy MSSA (methicillin susceptible Staphylococcus aureus) septicemia ([facility]) CRP elevated Bandemia Allergy to multiple antibiotics Pyogenic inflammation of bone ([facility]) Acute intractable headache Acute osteomyelitis of cervical spine ([facility]) Abscess in epidural space of [...] antihypertensives. Elevated troponins: Downtrended likely type II SC Hypokalemia: Repeat potassium level and replace if needed Left Vocal cord paralysis: Ongoing x 1 month. ENT on board. Plan for injection laryngoplasty for voice/swallowing improvement at some point. Passed swallow study. Diet: Easy to chew DVT ppx : Lovenox held GI ppx: None PT/OT/SW: Consulted Discharge Planning: In process Rufus Argueta MD Internal Medicine Resident, PGY- [facility]; [place], [place] 07/10/2021, 7:18 AM Associated attestation - [...] were not included. [facility] - Infectious diseases evaluation admission date 06/28/2021 [...] line due to nafciline Infection Control Recommendations Elizabeth Precautions Contact Isolation Antimicrobial Stewardship Recommendations Simplification of therapy Targeted therapy History of Present Illness: Initial history: Meg Georges is a 56 y.o.-year-old female presented to the ED for altered mental status. Patient is currently admitted under neurology service. Patient presented from a senior care after an episode of confusion overnight where she was found wandering outside her senior care. She had CT head done at outside facility which did not show any acute changes, telestroke was consulted for the concern of confusion, they recommended transfer to [facility] for MRI of the brain. BC SA MSSA and LP neg CRP elevated and WBc up - creat normal 06/29 mentally recovered Neck pain x 1 mo Left sole callus was infected x 2 months ago at the [facility] She gets her IvIg through a periph [...] PHLEGMON performed by Alisia Crump DO at [facility] OR CHOLECYSTECTOMY EYE SURGERY [address] shunt for open angle glaucoma. MRI compatible- device is all silicone LAMINECTOMY 07/06/2021 Posterior C1, LEFT C2 RHIZOTOMY, EXPLORATION OF EPIDURAL PHLEGMON SHOULDER SURGERY right UPPER GASTROINTESTINAL ENDOSCOPY N/A 07/02/2021 EGD ESOPHAGOGASTRODUODENOSCOPY performed by Hari Wagner MD at [facility] Endoscopy Medications: levothyroxine 100 mcg [...] Friends and Family: Not on file Attends [employer] Services: Not on file Active Member of [...] Crowe MD Office: Perfect [employer] / office [phone] Neurosurgery NATE/Resident Daily Progress Note Chief Complaint [...] 120 (H) 06/28/2021 Culture, Anaerobic and Aerobic [[id number]] Collected: 07/06/212140 Updated: 07/09/21730 Specimen Type: Swab [...] Neurosurgeon Speech Language Pathology Speech Language Pathology [facility] Cognitive Treatment Note Date: 07/09/2021 Patient s Name: Meg Georges Diagnosis: Patient Active Problem List Diagnosis Code Cellulitis of left finger L03.012 Altered mental state R41.82 Encephalitis G04.90 Encephalopathy G93.40 CIDP (chronic inflammatory demyelinating polyneuropathy) ([facility]) G61.81 Sepsis ([facility]) A41.9 Bacteremia R78.81 Hypothyroidism E03.9 Hypokalemia E87.6 Type 2 diabetes mellitus with diabetic polyneuropathy ([facility]) E11.42 Primary hypertension I10 Upper GI bleed K92.2 Non-intractable vomiting R11.10 Unintentional weight loss R63.4 Acute metabolic encephalopathy G93.41 MSSA (methicillin susceptible Staphylococcus aureus) septicemia ([facility]) A41.01 CRP elevated R79.82 Bandemia D72.825 Allergy to multiple antibiotics Z88.1 Pyogenic inflammation of bone ([facility]) M86.9 Acute intractable headache R51.9 Acute osteomyelitis of cervical spine ([facility]) M46.22 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 G06.1 Pain: 8/10 Cognitive Treatment Treatment time: 8728-4251 Subjective: [x] Alert [x] Cooperative [] Confused [] Agitated [] Lethargic Objective/Assessment: Recall: Delayed recall; 1/4 increased to 2/4 with min verbal cue, 1/4 increased to 3/4 with min verbal cues Word list retention: Word placement; 3/11 increased to 9/11 with repetitions Functional memory: Paragraph facts; 3/14 increased to 8/14 with repetitions and min verbal cue Problem Solving/Reasoning: Category members: [place]; 2/8 increased to 4/8 with min-mod verbal [...] Plan: [x] Continue services [] Discharge from : Discharge recommendations: [] Further therapy recommended at discharge.The patient should be able to tolerate at least 3 hours of therapy per day over 5 days or 15 hours over 7 days. [x] Further therapy recommended at discharge. [] No therapy recommended at discharge. Completed by Chaitanya Pratt Peer Educator Clinician Co-signed by Hina Sawyer M.S., CCC/SENIOR MARKETING ASSOCIATE Physical Therapy Facility/Department: [facility] 1C STEP DOWN Daily Treatment Note Name: Meg [...] progress notes indicate needs to mobilize . [employer]na thick liquids. Documentation of vocal cord paralysis. [...] Subjective: Pt c/o increased pain with mobility, / in posterior neck/head. Cognition Orientation Overall Orientation [...] (07/09/211010) Mobility Inpatient CMS 0-100% Score: 61.29 (07/09/211010) Mobility Inpatient CMS G-Code Modifier : CL [...] Time Individual Concurrent Group Co-treatment Time In 0855 Time Out 0933 Minutes 38 Timed Code Treatment Minutes: 38 Minutes Franck Burnham PTA Images from the original note were not included. [facility] Internal Medicine Teaching Residency Program Inpatient Daily Progress Note __ Patient: Meg Georges Date of : 1965 Acct: [id number] Room: 0146/0146-01 Admit date: 06/28/2021 Today's date: 07/09/21 Number [...] neuropathy follows neurology. Presented to ED from senior care, found confused outside. Imaging negative. She complains [...] sodium chloride sodium chloride 100 mL/hr at 07/08/216 dextrose PRN Medicationssodium chloride flush, 5-40 mL, [...] mL/hr, PRN Diagnostic Labs: CBC: Recent Labs 07/07/2134807/07/21 03407/08/21 0617 07/08/21 0848 07/09/21 0532 WBC 11.1 [...] Encephalitis Encephalopathy CIDP (chronic inflammatory demyelinating polyneuropathy) ([facility]) Bacteremia Hypothyroidism Hypokalemia Type 2 diabetes mellitus with diabetic polyneuropathy ([facility]) Primary hypertension Upper GI bleed Non-intractable vomiting Unintentional weight loss Acute metabolic encephalopathy MSSA (methicillin susceptible Staphylococcus aureus) septicemia ([facility]) CRP elevated Bandemia Allergy to multiple antibiotics Pyogenic inflammation of bone (HCC) Acute intractable headache Acute osteomyelitis of cervical spine ([facility]) Abscess in epidural space of [...] antihypertensives. Elevated troponins: Downtrended likely type II SC Hypokalemia: Repeat potassium level and replace if needed Left Vocal cord paralysis: Ongoing x 1 month. ENT on board. Plan for injection laryngoplasty for voice/swallowing improvement at some point. Passed swallow study. Diet: Easy to chew DVT ppx : Lovenox held GI ppx: None PT/OT/SW: Consulted Discharge Planning: In process Clark Iglesias MD Internal Medicine Resident, PGY-1 [facility]; [place], [place] 7:13 AM 07/09/2021 Please note that part of this chart was generated using voice recognition dictation software. Although every effort was made to ensure the accuracy of this automated clam treader, some errors in clam treader may have occurred. Associated attestation - Johnny [...] in place. Tolerating oral diet. Afebrile. Vitals: 07/07/21199907/08/21 0000 07/08/21 0400 07/08/21 0931 BP: 110/72 (!) 93/52 (!) 101/45 Pulse: 88 80 78 88 Resp: Temp: 98.5 F (36.9 C) 98.2 F [...] 120 (H) 06/28/2021 Culture, Anaerobic and Aerobic [[id number]] Collected: 07/06/212140 Updated: 07/08/21820 Specimen Type: Swab [...] infection Jose Alfredo Patiño DO Neurosurgery O: [phone] C: [phone] Physical Therapy Facility/Department: [address] [place] Physical Therapy Reassessment Name: [...] progress notes indicate needs to mobilize . Athena thick liquids. Documentation of vocal cord paralysis. 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 Health And Fitness Instructor rubbed some lotion on the area and [...] actively, heel slides, assisted SLR. AM-PAC Score AM-[facility] Inpatient Mobility Raw Score : 14 (07/08/21915) -[facility] Inpatient T-Scale Score : 38.1 (07/08/21915) Mobility Inpatient CMS 0-100% Score: 61.29 (07/08/21915) Mobility Inpatient [facility] G-Code Modifier : CL (07/08/21915) Goals Short [...] from the original note were not included. [facility] Internal Medicine Teaching Residency Program Inpatient Daily Progress Note __ Patient: Meg Georges Date of : 1965 Acct: [id number] Room: 0146/0146-01 Admit date: 06/28/2021 Today's date: 07/08/21 Number [...] neuropathy follows neurology. Presented to ED from senior care, found confused outside. Imaging negative. She complains [...] mL/hr, PRN Diagnostic Labs: CBC: Recent Labs 07/06/2175107/06/21164007/06/21192107/07/2134807/08/21 0617 WBC 7.7 -- -- 11.1 11.4* RBC 3.27* -- -- 3.34* 2.51* HGB 8.5* < > 9.9* 9.2* 6.9* HCT 27.5* < > 30.6* 27.9* 21.5* MCV 84.1 -- -- 83.5 85.7 RDW 18.2* -- -- 17.2* 18.6* PLT 378 -- -- 372 328 < > = values in this interval not displayed. BMP: Recent Labs 07/06/2175107/06/21 16407/06/21192107/07/2134807/08/21 0617 NA 133* < > 140 140 [...] PLAN Assessment and Plan: Principal Problem: Sepsis ([facility]) Active Problems: Altered mental state Encephalitis Encephalopathy CIDP (chronic inflammatory demyelinating polyneuropathy) ([facility]) Bacteremia Hypothyroidism Hypokalemia Type 2 diabetes mellitus with diabetic polyneuropathy ([facility]) Primary hypertension Upper GI bleed Non-intractable vomiting Unintentional weight loss Acute metabolic encephalopathy MSSA (methicillin susceptible Staphylococcus aureus) septicemia ([facility]) CRP elevated Bandemia Allergy to multiple antibiotics Pyogenic inflammation of bone ([facility]) Acute intractable headache Acute osteomyelitis of cervical spine ([facility]) Abscess in epidural space of [...] antihypertensives. Elevated troponins: Downtrended likely type II SC Hypokalemia: Repeat potassium level and replace if needed Left Vocal cord paralysis: Ongoing x 1 month. ENT on board. Plan for injection laryngoplasty for voice/swallowing improvement at some point. Passed swallow study. Diet: Easy to chew DVT ppx : Lovenox held GI ppx: None PT/OT/SW: Consulted Discharge Planning: In process Clark Iglesias MD Internal Medicine Resident, PGY-1 [facility]; [place], [place] 7:24 AM 07/08/2021 Please note that part of this chart was generated using voice recognition dictation software. Although every effort was made to ensure the accuracy of this automated clam treader, some errors in clam treader may have occurred. Associated attestation - Johnny [...] were not included. [facility] - Infectious diseases evaluation admission date 06/28/2021 [...] the rise despite tx Infection Control Recommendations Elizabeth Precautions Contact Isolation Antimicrobial Stewardship Recommendations Simplification of therapy Targeted therapy History of Present Illness: Initial history: Meg Georges is a 56 y.o.-year-old female presented to the ED for altered mental status. Patient is currently admitted under neurology service. Patient presented from a senior care after an episode of confusion overnight where she was found wandering outside her senior care. She had CT head done at outside facility which did not show any acute changes, telestroke was consulted for the concern of confusion, they recommended transfer to [facility] for MRI of the brain. BC SA MSSA and LP neg CRP elevated and WBc up - creat normal 06/29 mentally recovered Neck pain x 1 mo Left sole callus was infected x 2 months ago [facility] the [facility] She gets her IvIg through a periph [...] WBC-15 - 10 Micro: 06/29 -07/01 - 18 Blood Culture MSSA 06/29 LP [...] ESOPHAGOGASTRODUODENOSCOPY performed by Hari Wagner MD at [facility] Endoscopy Medications: sodium chloride flush [...] Friends and Family: Not on file Attends Mormon Services: Not on file Active Member of [...] Crowe MD Office: Perfect serve / office [phone] Neurology Nurse Practitioner Progress Note INTERVAL HISTORY: [...] who was admitted as a transfer from [facility] ED on 06/28/2021 for AMS. As per medical records, patient was found wandering outside her senior care. She was taken to [facility] ED with acute lethargy and confusion. Patient received Narcan with no improvement. Patient was evaluated by Dr. Helton through telestroke; NIH score was 1. CT head-motion degraded but no obvious acute stroke. Patient was transferred to [facility] for further evaluation. She was initially [...] ESOPHAGOGASTRODUODENOSCOPY performed by Hari Wagner MD at [facility] Endoscopy PHYSICAL EXAM: Blood pressure [...] TSH 0.15 (L) 06/28/2021 INR 1.2 06/28/2021 [id number] 06/28/2016 LABA1C 9.4 (H) 06/28/2021 LABMICR [...] diabetic peripheral neuropathy; demyelinating neuropathy panel from [facility] was normal. Pt has been on IVIG [...] to ensure the accuracy of this automated clam treader, some errors in clam treader may have occurred. Neurosurgery NATE/Resident Daily Progress Note Chief Complaint Patient presents with Altered Mental Status 07/07/2021 10:39 AM Chart reviewed. Returned from surgery yesterday evening. Pain well controlled. Tolerating oral diet. Vitals: 07/07/21 0300 07/07/21 0400 07/07/21 0500 07/07/21 0600 BP: (!) 142/78 Pulse: 85 90 81 83 Resp: 16 23 18 15 Temp: 97.8 F (36.6 C) [...] 120 (H) 06/28/2021 Culture, Anaerobic and Aerobic [[id number]] Collected: 07/06/212140 Updated: 07/06/212331 Specimen Type: Swab [...] Therapies Jose Alfredo Patiño DO Neurosurgery O: [phone] C: [phone] Images from the original note were not included. [facility] Internal Medicine Teaching Residency Program Inpatient Daily Progress Note __ Patient: Meg Georges Date of : 1965 Acct: [id number] Room: 0146/0146-01 Admit date: 06/28/2021 Today's date: [...] neuropathy follows neurology. Presented to ED from senior care, found confused outside. Imaging negative. She complains [...] mL, PRN tiZANidine, 2 mg, Q8H PRN urajzkfbty-hyqihqlhtrqqy-jinugbec, 1 tablet, Q4H PRN hydrALAZINE, 10 mg, [...] 0517 07/06/21 0752 07/06/21 0752 07/06/21 1641 07/06/21192107/07/21 0349 WBC 10.0 -- 7.7 -- -- [...] 07/05/21 0517 07/05/21 1058 07/06/21 0752 07/06/21 16407/06/21192107/07/21 0349 NA 138 -- 133* 140 140 [...] antihypertensives. Elevated troponins: Downtrended likely type II SC Hypokalemia: K+ 3.9 today. Repeat potassium level and replace if needed Left Vocal cord paralysis: Ongoing x 1 month. ENT on board. Plan for injection laryngoplasty for voice/swallowing improvement at some point. Passed swallow study. Rufus Argueta MD Internal Medicine Resident, PGY- [address] [facility]; [place], [place] 07/07/2021, 7:16 AM Associated attestation - [...] original note were not included. Occupational Therapy [facility] Occupational Therapy Not Seen Note DATE: 07/06/2021 NAME: Meg Georges : 1965 Patient not seen this date for Occupational Therapy due to: Surgery/Procedure: POSTERIOR CERVICAL C1-2 LAMINECTOMY Next Scheduled Treatment: 07/07 Speech Language Pathology Speech Language Pathology [facility] Cognitive/Dysphagia Treatment Note Date: 07/06/2021 Patient s Name: Meg Georges Diagnosis: Patient Active Problem List Diagnosis Code Cellulitis of left finger L03.012 Altered mental state R41.82 Encephalitis G04.90 Encephalopathy G93.40 CIDP (chronic inflammatory demyelinating polyneuropathy) ([facility]) G61.81 Sepsis ([facility]) A41.9 Bacteremia R78.81 Hypothyroidism E03.9 Hypokalemia E87.6 Type 2 diabetes mellitus with diabetic polyneuropathy ([facility]) E11.42 Primary hypertension I10 Upper GI bleed K92.2 Non-intractable vomiting R11.10 Unintentional weight loss R63.4 Acute metabolic encephalopathy G93.41 MSSA (methicillin susceptible Staphylococcus aureus) septicemia ([facility]) A41.01 Elevated C-reactive protein (CRP) R79.82 Bandemia D72.825 Allergy to multiple antibiotics Z88.1 Pyogenic inflammation of bone ([facility]) M86.9 Acute intractable headache R51.9 Pain: 0/10 Cognitive Treatment Treatment time: 935-1013 Subjective: [x] Alert [x] Cooperative [] Confused [] Agitated [] Lethargic Objective/Assessment: Recall: Delayed recall; 1/4 increased to 4/4 with min-max verbal cues, 1/4 increased to 4/4 with min verbal cues Word list retention: Recall by attribute; 9/12 increased to 12/12 with repetitions Problem Solving/Reasoning: Word deduction; 10/12 increased to 12/12 with min verbal cues Category members: [place]; 8/10 increased to 10/10 with min verbal cues Wrong category: [place]; 5/10 increased to 10/10 with repetitions and [...] recommended at discharge. Completed by Chaitanya Pratt Peer Educator Clinician Co-signed by Robbie Mckeon M.A.CCC/SENIOR MARKETING ASSOCIATE Images from the original note were not included. [facility] - Infectious diseases evaluation admission date 06/28/2021 [...] the rise despite tx Infection Control Recommendations Elizabeth Precautions Contact Isolation Antimicrobial Stewardship Recommendations Simplification of therapy Targeted therapy History of Present Illness: Initial history: Meg Georges is a 56 y.o.-year-old female presented to the ED for altered mental status. Patient is currently admitted under neurology service. Patient presented from a senior care after an episode of confusion overnight where she was found wandering outside her senior care. She had CT head done at outside facility which did not show any acute changes, telestroke was consulted for the concern of confusion, they recommended transfer to [facility] for MRI of the brain. BC SA MSSA and LP neg CRP elevated and WBc up - creat normal 06/29 mentally recovered Neck pain x 1 mo Left sole callus was infected x 2 [facility] She gets her IvIg through a periph that gets pulled each time - no picc outpt Hoarse x some time wo reason Cough x 1 month Interval changes 07/06/2021 Patient Vitals for the past 8 hrs: BP Temp Temp src Pulse Resp SpO2 07/06/21 2145 128/72 84 15 99 % 07/06/21 2130 122/64 83 13 100 % 07/06/212114 (!) 135/52 81 21 100 % 07/06/21 [...] ESOPHAGOGASTRODUODENOSCOPY performed by Hari Wagner MD at [facility] Endoscopy Medications: sodium chloride flush [...] Hold] latanoprost 1 drop Both Eyes Nightly [MAR Hold] insulin lispro 0-12 Units SubCUTAneous TID WC [MAR Hold] insulin lispro 0-6 Units SubCUTAneous Nightly [...] Friends and Family: Not on file Attends Mormon Services: Not on file Active Member of [...] labs: CBC with Differential: Recent Labs 07/05/21 0517 07/05/21 0517 07/06/21 0752 07/06/21 0752 07/06/21 1641 07/06/21 1922 WBC 10.0 -- 7.7 -- -- -- [...] 1058 07/06/21 0752 07/06/21 1641 07/06/21 1922 NA 138 -- 133* 140 140 K [...] Crowe MD Office: Perfect serve / office [phone] [facility] Neurology IN-PATIENT SERVICE [facility] Progress Note Date: 07/06/2021 Patient name: Meg Georges Date of admission: 06/28/2021 11:59 AM Account: [id number] Date of : 1965 PCP: Neri Santa [...] She was found wandering outside of her senior care. She was admitted to the medicine team and was found to have sepsis as well as a GI bleed. Neurology was consulted due to altered mentation and headache. CT head was done and was unremarkable. CTA head neck unremarkable. EEG was normal. Spinal tap was done in the ED with CSF studies negative for meningitis or PRESSURIZATION MECHANIC infection. For her headache she was placed [...] ESOPHAGOGASTRODUODENOSCOPY performed by Hari Wagner MD at [facility] Endoscopy Medications Prior to Admission: [...] 17.5* PLT 341 MPV 9.7 Recent Labs 07/05/2151607/05/21 0517 07/05/21 1058 NA 138 -- -- K 3.1* [...] Medium MSSA (methicillin susceptible Staphylococcus aureus) septicemia ([facility]) [A41.01] 06/30/2021 Priority: Medium Upper GI bleed [K92.2] Priority: Medium Non-intractable vomiting [R11.10] Priority: Medium Unintentional weight loss [R63.4] Priority: Medium Sepsis (HCC) [A41.9] 06/29/2021 Priority: Medium Bacteremia [R78.81] 06/29/2021 Priority: Medium Hypothyroidism [E03.9] 06/29/2021 Priority: Medium Hypokalemia [E87.6] 06/29/2021 Priority: Medium Type 2 diabetes mellitus with diabetic polyneuropathy ([facility]) [E11.42] 06/29/2021 Priority: Medium Primary hypertension [I10] 06/29/2021 Priority: Medium Encephalopathy [G93.40] Priority: Medium CIDP (chronic inflammatory demyelinating polyneuropathy) ([facility]) [G61.81] Priority: Medium Altered mental [...] On nafcillin -CSF studies are negative for PRESSURIZATION MECHANIC infection. -Continue Depakene 250mg BID for headache. [...] from the original note were not included. [facility] Internal Medicine Teaching Residency Program Inpatient Daily Progress Note __ Patient: Meg Georges Date of : 1965 Acct: [id number] Room: [facility]014- Admit date: 06/28/2021 Today's date: 07/06/21 Number [...] neuropathy follows neurology. Presented to ED from senior care, found confused outside. Imaging negative. She complains [...] mL, PRN tiZANidine, 2 mg, Q8H PRN ysopugxcwj-sndxbhujbmfls-jajxcagv, 1 tablet, Q4H PRN hydrALAZINE, 10 mg, [...] antihypertensives. Elevated troponins: Downtrended likely type II SC Hypokalemia: K+ 3.2 today. Likely due to diarrhea. Repeat potassium level and replace if needed Left Vocal cord paralysis: Ongoing x 1 month. ENT on board. Plan for injection laryngoplasty for voice/swallowing improvement at some point. Passed swallow study. Rufus Argueta MD Internal Medicine Resident, PGY- 1 [facility]; [place], [place] 07/06/2021, 7:41 AM Associated attestation - [...] Chew diet with mildly thick liquids per SENIOR MARKETING ASSOCIATE 2. Send Magic Cup ONS with meals Nutrition Assessment: Pt made NPO for MBSS d/t concern for aspiration. SENIOR MARKETING ASSOCIATE recommending easy to chew and mildly thick [...] ADULT DIET; Easy to Chew; Mildly Thick (Athena) Anthropometric Measures: Height: 5' 5 (165.1 cm) Blair Body Weight (IBW): 125 lbs (57 kg) Current Body Weight: 145 lb (65.8 kg), 116 % IBW. Weight Source: Stated Current BMI (kg/m2): 24.1 BMI Categories: Normal Weight (BMI 18.5-24.9) Estimated Daily Nutrient Needs: Energy Requirements Based On: Kcal/kg Weight Used for Energy Requirements: Current Energy (kcal/day): 4635-7039 kcals/day Weight Used for Protein Requirements: Current [...] determine Mary Acosta MS, RD, LD Contact: [phone] Images from the original note were not included. [facility] - Infectious diseases evaluation admission date 06/28/2021 [...] the rise despite tx Infection Control Recommendations Elizabeth Precautions Contact Isolation Antimicrobial Stewardship Recommendations Simplification of therapy Targeted therapy History of Present Illness: Initial history: Meg Georges is a 56 y.o.-year-old female presented to the ED for altered mental status. Patient is currently admitted under neurology service. Patient presented from a senior care after an episode of confusion overnight where she was found wandering outside her senior care. She had CT head done at outside facility which did not show any acute changes, telestroke was consulted for the concern of confusion, they recommended transfer to [facility] for MRI of the brain. BC SA MSSA and LP neg CRP elevated and WBc up - creat normal 06/29 mentally recovered Neck pain x 1 mo Left sole callus was infected x 2 months ago at the [facility] She gets her IvIg through a periph [...] ESOPHAGOGASTRODUODENOSCOPY performed by Hari Wagner MD at [facility] Endoscopy Medications: gabapentin 200 mg [...] Friends and Family: Not on file Attends Mormon Services: Not on file Active Member of [...] 26 MONOPCT 5 4 BMP: Recent Labs 07/04/2131507/04/2131507/05/2117 07/05/21 1058 NA 138 -- 138 -- [...] Negrete MD Office: Perfect serve / office [phone] I have discussed the care of the [...] from the original note were not included. [facility] Internal Medicine Teaching Residency Program Inpatient Daily Progress Note __ Patient: Meg Georges Date of : 1965 Acct: [id number] Room: [address] [place] [address] Admit date: 06/28/2021 Today's date: 07/05/21 Number [...] neuropathy follows neurology. Presented to ED from senior care, found confused outside. Imaging negative. She complains [...] mL, PRN tiZANidine, 2 mg, Q8H PRN hxfmgxswyb-vyakulzjbpwjs-hpmfbwqf, 1 tablet, Q4H PRN hydrALAZINE, 10 mg, [...] PRN Diagnostic Labs: CBC: Recent Labs 07/03/21 0439 07/03/21 0439 07/03/21 1637 07/04/21 0316 07/05/21 0517 WBC 13.6* -- -- 10.4 10.0 RBC 3.22* -- -- 2.79* 2.98* HGB 8.4* < > 7.8* 7.4* 7.9* HCT 26.1* < > 24.2* 22.8* 24.6* MCV 81.1* -- -- 81.7* 82.6 RDW 16.5* -- -- 16.9* 17.5* PLT 261 -- -- 231 341 < > = values in this interval not displayed. BMP: Recent Labs 07/03/21 0439 07/03/21 0439 07/03/21 1637 07/04/21 0316 07/05/21 0517 [...] controlled Elevated troponins: Downtrended likely type II SC -echo done Hypokalemia: K+ 3.1 today. On daily 40 replacement. Repeat potassium level and replace if needed Left Vocal cord paralysis: Ongoing x 1 month. ENT on board. Plan for injection laryngoplasty for voice/swallowing improvement at some point. Passed swallow study. Tami Vega MD Internal Medicine Resident, PGY- 2 [facility]; [place], [place] 07/05/2021, 10:37 AM Associated attestation - [...] left side of her head. Brief History: Mge Georges is a 56 y.o. 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 She was found wandering outside of her senior care. She was admitted to the medicine team and was found to have sepsis as well as a GI bleed. Neurology was consulted due to altered mentation and headache. CT head was done and was unremarkable. CTA head neck unremarkable. EEG was normal. Spinal tap was done in the ED with CSF studies negative for meningitis or PRESSURIZATION MECHANIC infection. For her headache she was placed [...] ESOPHAGOGASTRODUODENOSCOPY performed by Hari Wagner MD at [facility] Endoscopy Social History: Meg Georges [...] tested Data: Lab Results: CBC: Recent Labs 05/17/22 0439 07/03/21 0439 07/03/21 1637 07/04/21 0316 07/05/21 05 WBC 13.6* -- -- 10.4 10.0 HGB 8.4* < > 7.8* 7.4* 7.9* PLT 261 -- -- 231 341 < > = values in this interval not displayed. BMP: Recent Labs 07/03/21 0439 07/03/21 0439 07/03/21 1637 07/04/21 0316 07/05/21 05 NA 134* -- -- 138 138 [...] LABA1C 9.4 (H) 06/28/2021 LABMICR 7 06/25/2013 [id number] 06/28/2016 Diagnostic data reviewed: CT HEAD [...] of CIDP -CSF studies are negative for PRESSURIZATION MECHANIC infection -Continue Depakene 250mg BID for headache [...] to ensure the accuracy of this automated clam treader, some errors in clam treader may have occurred. Neurosurgery NATE/Resident Daily Progress [...] Pulse: 85 84 85 80 Resp: 15 18 29 16 Temp: 98 F (36.7 C) [...] slightly more compressive than a CT on 5/13. Blood culture has still been positive for [...] X.Vaishali Crump DO Neurosurgeon Occupational Therapy Facility/Department: [address] Occupational Therapy Initial Assessment [...] Rolling ADL Assistive Devices: Long-handled Sponge;Long-handled Shoe Horn;Superintendent [employer];Sock-Aid Hard Patient Diagnosis(es): The primary encounter diagnosis [...] Position Activity Restriction Other position/activity restrictions: Per ManishChristina with neurosurgery, no surgical interventions planned at [...] Ambulation Assistance: Independent Transfer Assistance: Independent Active Collision Center Manager: Yes Mode of Transportation: Car 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 Type of Occupation: [employer], [employer] Leisure & Hobbies: shopping Additional Comments: Support from anabaptist friends, but unsure if she would have [...] Daily Activity Raw Score: 19 (07/04/21 1630) AM-PAC Inpatient ADL T-Scale Score : 40.22 (07/04/21 1630) ADL Inpatient CMS 0-100% Score: 42.8 (07/04/21 163) ADL Inpatient CMS G-Code Modifier : CK (07/04/211629) Goals Short [...] 33 Minutes PAIGE Moreira Physical Therapy Facility/Department: [address]EP [address] Physical Therapy Initial Assessment [...] (pt retired in restroom with OT upon aligner typewriter's exit) Restraints Restraints Initially in Place: No [...] Ambulation Assistance: Independent Transfer Assistance: Independent Active Collision Center Manager: Yes Mode of Transportation: Car 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, [employer] Leisure & Hobbies: shopping Additional Comments: Support from anabaptist friends, but unsure if she would have [...] Not formally assessed due to c-spine precautions; real estate intern strength WFL Strength LUE Strength LUE: Exception Comment: Not formally assessed due to c-spine precautions; real estate intern strength WFL Bed mobility Supine to Sit: Contact guard assistance Sit to Supine: (Did not formally assess- pt retired in restroom upon aligner typewriter's exit) Bed Mobility Comments: Increased time required [...] requiring Alejandra donning/ doffing from assistance from aligner typewriter. More Ambulation?: No Stairs/Curb Stairs?: No Balance [...] PT Speech Language Pathology Speech Language Pathology [facility] Cognitive Treatment Note Date: 07/04/2021 Patient s Name: Meg Georges Diagnosis: Patient Active Problem List Diagnosis Code Cellulitis of left finger L03.012 Altered mental state R41.82 Encephalitis G04.90 Encephalopathy G93.40 CIDP (chronic inflammatory demyelinating polyneuropathy) ([facility]) G61.81 Sepsis ([facility]) A41.9 Bacteremia R78.81 Hypothyroidism E03.9 Hypokalemia E87.6 Type 2 diabetes mellitus with diabetic polyneuropathy ([facility]) E11.42 Primary hypertension I10 Upper GI bleed K92.2 Non-intractable vomiting R11.10 Unintentional weight loss R63.4 Acute metabolic encephalopathy G93.41 MSSA (methicillin susceptible Staphylococcus aureus) septicemia ([facility]) A41.01 Elevated C-reactive protein (CRP) R79.82 Bandemia D72.825 Allergy to multiple antibiotics Z88.1 Pyogenic inflammation of bone ([facility]) M86.9 Acute intractable headache R51.9 [...] recommended at discharge. Treatment completed by:Chaitanya Pratt Peer Educator HOLGER WADE, M.A. CCC-SENIOR MARKETING ASSOCIATE Patient's operative note found from care everywhere from Dr.Gloria Elena [place] MD 02/22/2010 from [facility]. Implant is Baerveldt 250 tube shunt, on the left for open angle glaucoma. This is MRI compatible. MRI department will confirm this. Speech Language Pathology [facility] Speech Language Pathology Date: 07/04/2021 Patient Name: Meg Georges Date of : 1965 AGE: 56 y.o. Patient Not Available for Speech Therapy Due to: [] Testing [] Hemodialysis [] Cancelled by RN [] Surgery [] Intubation/Sedation/Pain Medication [] Medical instability [x] Other: Pt in pain. Asked ST to return later Next scheduled treatment: 518 in PM if able, 07/05 Completed by:Chaitanya Pratt Peer Educator HOLGER WADE, M.A. CCC-SENIOR MARKETING ASSOCIATE ENT/OTOLARYNGOLOGY PROGRESS NOTE REASON FOR CARE: AMS, [...] Pulse: 71 [phone] 85 Resp: 27 Temp: 98.2 F (36.8 C) 97.8 F [...] Angel Krueger [address] [facility] [address] OPTION 2: [facility] ENT [address] [place] [address], [address] [place] [address] Appointment scheduling: Other Useful Numbers: [facility]' ENT Nurse triage line [phone] (ENT-related questions or concerns, 8am-4pm, Friday through Friday) Gutierrez Sloan MD Pediatric Otolaryngology-Head and Neck Surgery [facility] Otolaryngology group Office ph# [phone] Also available in [employer] Images from the original note were not included. [facility] - Infectious diseases evaluation admission date 06/28/2021 [...] patient, RN, Dr. Robledo. Infection Control Recommendations Elizabeth Precautions Contact Isolation Antimicrobial Stewardship Recommendations Simplification of therapy Targeted therapy History of Present Illness: Initial history: Meg Georges is a 56 y.o.-year-old female presented to the ED for altered mental status. Patient is currently admitted under neurology service. Patient presented from a senior care after an episode of confusion overnight where she was found wandering outside her senior care. She had CT head done at outside facility which did not show any acute changes, telestroke was consulted for the concern of confusion, they recommended transfer to [facility] for MRI of the brain. BC SA MSSA and LP neg CRP elevated and WBc up - creat normal 06/29 mentally recovered Neck pain x 1 mo Left sole callus was infected [facility] 2 [facility] She gets her IvIg through a periph [...] ESOPHAGOGASTRODUODENOSCOPY performed by Hari Wagner MD at [facility] Endoscopy Medications: lidocaine 1 patch [...] Friends and Family: Not on file Attends Mormon Services: Not on file Active Member of [...] following labs: CBC with Differential: Recent Labs 07/03/21 0439 07/03/21 0439 07/03/21 1637 07/04/21 0316 WBC 13.6* -- -- 10.4 HGB 8.4* < > 7.8* 7.4* HCT 26.1* < > 24.2* 22.8* PLT 261 -- -- 231 LYMPHOPCT 18* -- -- 22* MONOPCT 5 -- -- 5 < > = values in this interval not displayed. BMP: Recent Labs 07/03/21 04307/03/21 04307/03/21 1637 07/04/21 0316 NA 134* -- -- [...] Orellana CNP Office: Perfect [facility] / office [phone] \ Images from the original note were [...] She was found wandering outside of her senior care. She was admitted to the medicine team and was found to have sepsis as well as a GI bleed. Neurology was consulted due to altered mentation and headache. CT head was done and was unremarkable. CTA head neck unremarkable. EEG was normal. Spinal tap was done in the ED with CSF studies negative for meningitis or PRESSURIZATION MECHANIC infection. For her headache she was placed [...] ESOPHAGOGASTRODUODENOSCOPY performed by Hari Wagner MD at [facility] Endoscopy Social History: Meg Georges [...] tested Data: Lab Results: CBC: Recent Labs 07/02/2141807/02/21 1508 07/03/21 0439 07/03/21 1637 07/04/21 0316 WBC 16.7* -- 13.6* -- 10.4 HGB 9.0* < > 8.4* 7.8* 7.4* PLT 299 -- 261 -- 231 < > = values in this interval not displayed. BMP: Recent Labs 07/02/2141807/02/21 1015 07/03/21 0439 07/03/21 1637 07/04/21 0316 [...] LABA1C 9.4 (H) 06/28/2021 LABMICR 7 06/25/2013 [id number] 374 06/28/2016 Diagnostic data reviewed: CT HEAD [...] IVIG sooner -CSF studies are negative for PRESSURIZATION MECHANIC infection -Continue Depakene 250mg BID for headache -GI is following, patient is s/p EGD with findings suggestive of Alan esophagitis -ID is following; patient remains on antibiotics -Neurosurgery is following; possible myelogram -PT/OT -We will follow Please note that this note was generated using a voice recognition dictation software. Although every effort was made to ensure the accuracy of this automated clam treader, some errors in clam treader may have occurred. Images from the original note were not included. [facility] Internal Medicine Teaching Residency Program Inpatient Daily Progress Note __ Patient: Meg Georges Date of : 1965 Acct: [id number] Room: [facility]0146- Admit date: 06/28/2021 Today's date: 07/04/21 Number [...] neuropathy follows neurology. Presented to ED from senior care, found confused outside. Imaging negative. She complains [...] mL, PRN tiZANidine, 2 mg, Q8H PRN climkshted-iqjmchldktnot-nlsujhak, 1 tablet, Q4H PRN hydrALAZINE, 10 mg, [...] mL/hr, PRN Diagnostic Labs: CBC: Recent Labs 07/02/2141807/02/21 1508 07/03/21 0439 07/03/21 1637 07/04/21 0316 [...] displayed. BMP: Recent Labs 07/02/21 04107/02/21 1015 07/03/21 0439 07/03/21 1637 07/04/21 0316 [...] controlled Elevated troponins: Downtrending likely type II SC -echo result pending Hypokalemia: K+ 2.9 today. [...] Argueta MD Internal Medicine Resident, PGY- 1 [facility]; [place], [place] 07/04/2021, 7:05 AM Associated attestation - [...] check back 07/04/21. Speech Language Pathology Facility/Department: [facility] 1C STEP DOWN Initial Speech/Language/Cognitive [...] and MSSA (methicillin susceptible Staphylococcus aureus) septicemia ([facility]) on their problem list. Date [...] hyperlipidemia, sleep apnea, who was transferred from [facility], after she presented from her senior care for an episode of confusion overnight where she was found wandering outside her senior care. She does not recall the episode very well, complaining of head pain, generalized weakness, weak voice. She had CT head done at outside facility which did not show any acute changes, telestroke was consulted for the concern for confusion, they recommended transfer to [facility] for MRI of the brain. Patient has a complicated history over the last few years, has been seen by neurology at [facility] for worsening neuropathy symptoms, eventually diagnosed with CIDP and she is on IVIG infusions every 2 weeks although she has not had them in the last month or so since being in the senior care. There is also concern for MGUS, with [...] of two L4-5 lumbar spine surgeries in 1995/1996 for leg pain, without improvement in pain [...] Further therapy recommended at discharge. Recommendations: Requires SENIOR MARKETING ASSOCIATE Intervention: Yes D/C Recommendations: Ongoing speech therapy [...] were not included. [facility] - Infectious diseases evaluation admission date 06/28/2021 [...] the rise clayton[pite tx Infection Control Recommendations Elizabeth Precautions Contact Isolation Antimicrobial Stewardship Recommendations Simplification of therapy Targeted therapy History of Present Illness: Initial history: Meg Georges is a 56 y.o.-year-old female presented to the ED for altered mental status. Patient is currently admitted under neurology service. Patient presented from a senior care after an episode of confusion overnight where she was found wandering outside her senior care. She had CT head done at outside facility which did not show any acute changes, telestroke was consulted for the concern of confusion, they recommended transfer to [facility] for MRI of the brain. BC SA MSSA and LP neg CRP elevated and WBc up - creat normal 06/29 mentally recovered Neck pain x 1 mo Left sole callus was [facility] 2 [facility] She gets her IvIg through a periph [...] Friends and Family: Not on file Attends Mormon Services: Not on file Active Member of [...] Crowe MD Office: [facility] / office [phone] \ Echo completed in echo lab. Images [...] She was found wandering outside of her senior care. She was admitted to the medicine team and was found to have sepsis as well as a GI bleed. Neurology was consulted due to altered mentation and headache. CT head was done and was unremarkable. CTA head neck unremarkable. EEG was normal. Spinal tap was done in the ED with CSF studies negative for meningitis or PRESSURIZATION MECHANIC infection. For her headache she was placed [...] LABA1C 9.4 (H) 06/28/2021 LABMICR 7 06/25/2013 [id number] 374 06/28/2016 Diagnostic data reviewed: CT HEAD [...] CIDP Plan: -CSF studies are negative for PRESSURIZATION MECHANIC infection -Patient headache is improved with Depacon; [...] to ensure the accuracy of this automated clam treader, some errors in clam treader may have occurred. Images from the original note were not included. [facility] Internal Medicine Teaching Residency Program Inpatient Daily Progress Note __ Patient: Meg Georges Date of : 1965 Acct: [id number] Room: [facility]0146- Admit date: 06/28/2021 Today's date: 07/03/21 Number [...] neuropathy follows neurology. Presented to ED from senior care, found confused outside. Imaging negative. She complains [...] Daily PRN tiZANidine, 2 mg, Q8H PRN lnghoaqpmb-hxsrxhwjzdlkd-ppiitntf, 1 tablet, Q4H PRN hydrALAZINE, 10 mg, [...] controlled Elevated troponins: Downtrending likely type II SC -echo result pending Hypokalemia: K+ 2.9 today. [...] Argueta MD Internal Medicine Resident, PGY- 1 [facility]; [place], [place] 07/03/2021, 5:58 AM Associated attestation - [...] were not included. [facility] - Infectious diseases evaluation admission date 06/28/2021 [...] scan to the neck Infection Control Recommendations Elizabeth Precautions Contact Isolation Antimicrobial Stewardship Recommendations Simplification of therapy Targeted therapy History of Present Illness: Initial history: Meg Georges is a 56 y.o.-year-old female presented to the ED for altered mental status. Patient is currently admitted under neurology service. Patient presented from a senior care after an episode of confusion overnight where she was found wandering outside her senior care. She had CT head done at outside facility which did not show any acute changes, telestroke was consulted for the concern of confusion, they recommended transfer to [facility] for MRI of the brain. BC SA MSSA and LP neg CRP elevated and WBc up - creat normal 06/29 mentally recovered Neck pain x 1 mo Left sole callus was [facility] 2 [facility] She gets her IvIg through a periph [...] Friends and Family: Not on file Attends Mormon Services: Not on file Active Member of [...] Crowe MD Office: Perfect serve / office [phone] \ Speech Language Pathology [facility] Speech Language Pathology Date: 07/02/2021 Patient [...] as appropriate Completed by: HOLGER Larson, M.S. [facility]-SENIOR MARKETING ASSOCIATE NEUROLOGY INPATIENT PROGRESS NOTE 07/02/2021 Subjective: Meg Georges is a 56 y.o. female admitted on 06/28/2021 with Stupor [R40.1] Encephalitis [G04.90] Altered mental state [R41.82] Briefly, this is a 56 y.o. 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 She was found wandering outside her senior care. Admitted to medicine for sepsis work up, [...] 0-6 Units SubCUTAneous Nightly PRN Meds include: kqtuqbdpsa-ardhybbllqcga-jygwqnbn, hydrALAZINE, sodium chloride flush, sodium chloride, ondansetron [...] Labs 07/01/21 0631 07/01/21 0631 07/01/21 1558 07/01/21204707/02/219 WBC 12.6* -- -- -- 16.7* HGB 9.0* < > 8.6* 8.8* 9.0* PLT 284 -- -- -- 299 < > = values in this interval not displayed. BMP: Recent Labs 07/01/2131 07/01/2131 07/01/21 0845 07/01/21155707/02/219 NA 137 -- -- [...] LABA1C 9.4 (H) 06/28/2021 LABMICR 7 06/25/2013 [id number] 374 06/28/2016 No results found for: PHENYTOIN, [...] confusion. She was found wandering outside her senior care. MSSA sepsis - on Abx per primary. [...] for EGD today. CSF studies negative for PRESSURIZATION MECHANIC infection. Will continue to follow. Pawan Dutton DO 07/02/2021 3:45 PM Images from the original note were not included. [facility] Internal Medicine Teaching Residency Program Inpatient Daily Progress Note __ Patient: Meg Georges Date of : 1965 Acct: [id number] Room: 0146/0146-01 Admit date: 06/28/2021 Today's date: [...] neuropathy follows neurology. Presented to ED from senior care, found confused outside. Imaging negative. She complains [...] SubCUTAneous Nightly Continuous Infusions: pantoprazole 8 mg/hr (05/16/22 0208) sodium chloride 100 mL/hr at 07/01/21 0600 sodium chloride dextrose PRN Nzcjieldkejhuooqwkjdt-vuoaaumuaydpu-hb ffeine, 1 tablet, Q4H PRN hydrALAZINE, 10 [...] mL/hr, PRN Diagnostic Labs: CBC: Recent Labs 07/01/2163007/01/21 0631 07/01/21 1558 07/01/218 07/02/21418 WBC 12.6* -- -- -- 16.7* RBC [...] N&V Elevated troponins: Downtrending likely type II SC -echo result pending Hypokalemia: K+ 2.2 today. Replace PO and IV and monitor Left Vocal cord paralysis: Ongoing x 1 month. ENT on board. Plan for injection laryngoplasty for voice/swallowing improvement at some point. Needs formal speech therapy/swallow study assessment as she is likely aspirating liquids Rufus Argueta MD Internal Medicine Resident, PGY- 1 [facility]; [place], [place] 07/02/2021, 7:16 AM Associated attestation - [...] history and exam findings with the resident/ DISINTEGRATOR. I have seen and examined the patient and the coffey elements of the encounter have been performed by me. I agree with the assessment, plan and orders as documented by the resident or DISINTEGRATOR with changes made to the note. Briefly, this is a 56 y.o. female with known dx of CIDP (on 2wkly IVIG), IDDM, HLD, sleep apnea was admitted on 06/28/2021 with episodic confusion; found wandering outside her senior care. Her history is significant for CIDP for [...] 0-6 Units SubCUTAneous Nightly PRN Meds include: qupbhjgihs-ipyrhmseutsso-srzjvdnu, hydrALAZINE, sodium chloride flush, sodium chloride, ondansetron [...] LABA1C 9.4 (H) 06/28/2021 LABMICR 7 06/25/2013 [id number] 374 06/28/2016 Impression and Plan: Ms. Meg [...] you. Jenifer Jewell MD 07/01/2021 2:01 PM [facility] Neurology IN-PATIENT SERVICE [facility] Progress note Date: 07/01/2021 Patient name: Meg Georges Date of admission: 06/28/2021 11:59 AM Account: [id number] Date of : 1965 PCP: Neri Santa [...] panel 06/28/21 Total cholesterol 155, LDL 63 SOY5B-9.4 this admission CSF studies 06/28/21 Oligoclonal banding [...] # 2.14 1.0 - 4.8 k/uL Absolute Antelope # 0.76 0.1 - 0.8 k/uL Absolute [...] 2.6 mg/dL Assessment : Primary Problem Sepsis ([facility]) Active Hospital Problems Diagnosis Date Noted Acute metabolic encephalopathy [G93.41] 06/30/2021 Priority: Medium MSSA (methicillin susceptible Staphylococcus aureus) septicemia ([facility]) [A41.01] 06/30/2021 Priority: Medium Upper GI bleed [K92.2] Priority: Medium Non-intractable vomiting [R11.10] Priority: Medium Unintentional weight loss [R63.4] Priority: Medium Sepsis ([facility]) [A41.9] 06/29/2021 Priority: Medium Bacteremia [R78.81] 06/29/2021 Priority: Medium Hypothyroidism [E03.9] 06/29/2021 Priority: Medium Hypokalemia [E87.6] 06/29/2021 Priority: Medium Type 2 diabetes mellitus with diabetic polyneuropathy ([facility]) [E11.42] 06/29/2021 Priority: Medium Primary hypertension [I10] 06/29/2021 Priority: Medium Encephalopathy [G93.40] Priority: Medium CIDP (chronic inflammatory demyelinating polyneuropathy) ([facility]) [G61.81] Priority: Medium Altered mental [...] history and exam findings with the resident/ DISINTEGRATOR. I have seen and examined the patient and the coffey elements of the encounter have been performed by me. I agree with the assessment, plan and orders as documented by the resident or DISINTEGRATOR with changes made to the note. Briefly, this is a 56 y.o. female with known dx of CIDP (on 2wkly IVIG), IDDM, HLD, sleep apnea was admitted on 06/28/2021 with episodic confusion; found wandering outside her senior care. Her history is significant for CIDP for [...] SubCUTAneous Nightly PRN Meds include: PRN Medications jprsmpnazu-tokyuwxdlteas-fajpznvi, hydrALAZINE, sodium chloride flush, sodium chloride, ondansetron [...] LABA1C 9.4 (H) 06/28/2021 LABMICR 7 06/25/2013 [id number] 374 06/28/2016 Impression and Plan: Ms. Meg [...] from the original note were not included. [facility] Internal Medicine Teaching Residency Program Inpatient Daily Progress Note __ Patient: Meg Georges Date of : 1965 Acct: [id number] Room: [facility]/0146- Admit date: 06/28/2021 Today's date: 07/01/21 Number [...] neuropathy follows neurology. Presented to ED from senior care, found confused outside. Imaging negative. She complains [...] at 07/01/21 0600 sodium chloride dextrose PRN Whxzgkeifynnolttmgwps-hrujekwkgimve-jt ffeine, 1 tablet, Q4H PRN hydrALAZINE, 10 [...] 1212 06/29/21 0351 06/29/21 0351 06/30/21 0909 06/30/21212807/01/21 0631 WBC 22.0* -- 15.0* -- -- [...] interval not displayed. BMP: Recent Labs 06/28/21 12106/29/2135007/01/2131 NA 135 137 137 K 4.0 3.2* [...] N&V Elevated troponins: Downtrending likely type II SC -echo result pending Hypokalemia: K+ 2.2 today. Replace PO and IV and monitor Rufus Argueta MD Internal Medicine Resident, PGY- 1 [facility]; [place], [place] 07/01/2021, 7:33 AM Associated attestation - [...] were not included. [facility] - Infectious diseases evaluation Progress Note admission [...] object in her eyes Infection Control Recommendations Elizabeth Precautions Antimicrobial Stewardship Recommendations Simplification of therapy Targeted therapy History of Present Illness: INITIAL HISTORY: Meg Georges is a 56 y.o.-year-old female who presented to the ED because of altered mental status. Patient is currently admitted under neurology service. Patient presented from a senior care after an episode of confusion overnight where she was found wandering outside her senior care. She had CT head done at outside facility which did not show any acute changes. Telestroke was consulted because of the concern with confusion, they recommended transfer to [facility] for MRI of the brain. BC: Staph A (MSSA) and LP neg CRP elevated and WBc up - creat normal 06/29 mentally recovered Neck pain x 1 mo Left sole callus was infected x 2 months ago [facility] She gets her IvIg through a peripheral [...] 06-28-21: Normal . Prior cholecystectomy. CT Chest 5-13-22: 7 mm ground-glass nodule in the posterior [...] Friends and Family: Not on file Attends [employer] Services: Not on file Active Member of [...] Stokes MD Office: Perfect serve / office [phone] [facility] Progress Note Meg Georges is a [...] Nightly Continuous Infusions: pantoprazole 8 mg/hr (07/01/21 025) sodium chloride Stopped (07/01/21426) sodium chloride dextrose PRN Meds:cyuxnaytxi-xkpphyzzjiqxx-iuyfmwaa , hydrALAZINE, sodium chloride flush, sodium chloride, [...] results for input(s): LABIRON, TIBC, IRON, FERRITIN, ONZTXJUS11, FOLATE, OCCULTBLD in the last 72 hours. [...] Encephalitis Encephalopathy CIDP (chronic inflammatory demyelinating polyneuropathy) ([facility]) Bacteremia Hypothyroidism Hypokalemia Type 2 diabetes mellitus with diabetic polyneuropathy ([facility]) Primary hypertension Upper GI bleed Non-intractable vomiting Unintentional weight loss Acute metabolic encephalopathy MSSA (methicillin susceptible Staphylococcus aureus) septicemia ([facility]) Resolved Problems: * No resolved hospital problems. * GI Assessment: 56-year-old female with a past medical history of uncontrolled insulin-dependent diabetes (Hgb A1c-9.4), hypothyroidism, chronic inflammatory demyelinating polyneuropathy on IVIG, MGUS neuropathy, and GERD who presented from senior care after being found outside confused. She was [...] of your patient. Rosalinda Alvarado APRN - DISINTEGRATOR on 07/01/2021 at 6:50 AM [facility] Please note that this note was generated using a voice recognition dictation software. Although every effort was made to ensure the accuracy of this automated clam treader, some errors in clam treader may have occurred. Associated attestation - Hari Wagner MD - 07/01/2021 11:00 AM EDT Attending Physician Statement I have seen, examined and discussed the care of Meg Georges, including pertinent history and exam findings, with the DISINTEGRATOR. I agree with the assessment, plan and orders as documented by the DISINTEGRATOR. SPIRITUAL CARE DEPARTMENT - [facility] [place], [place] PROGRESS NOTE Shift date: 06/30/21 Shift day: Friday Shift # 2 Room # 0146/0146-01 Name: Meg Georges Age: 56 y.o. Gender: female Synagogue: [employer]: Referral: Routine Visit Admit Date & Time: 06/28/2021 11:59 AM PATIENT/EVENT DESCRIPTION: Meg Georges is a 56 y.o. female SPIRITUAL ASSESSMENT/INTERVENTION: Patient appeared to welcome push button switch assembler presence. Patient engaged in conversation and stated she had lost her voice. Merchandise Director was a ministry of presence and offered prayer for spiritual comfort/support. Patient accepted prayer and expressed gratitude for visit. SPIRITUAL CARE FOLLOW-UP PLAN: Chaplains will remain available to offer spiritual and emotional support as needed. . Spiritual Care Department [facility] [phone] Images from the original note were not included. [facility] Internal Medicine Teaching Residency Program Inpatient Daily Progress Note __ Patient: Meg Georges Date of : 1965 Acct: [id number] Room: 0146/0146-01 Admit date: 06/28/2021 Today's date: [...] neuropathy follows neurology. Presented to ED from senior care, found confused outside. Imaging negative. She complains [...] Stopped (06/30/21 0408) sodium chloride dextrose PRN Sesggjrghayzpsagmrqpv-yljenolrcrveq-nv ffeine, 1 tablet, Q4H PRN hydrALAZINE, 10 [...] mL/hr, PRN Diagnostic Labs: CBC: Recent Labs 06/28/2140906/28/21 04106/28/21121106/29/21 0351 06/30/21 0909 WBC 21.5* -- 22.0* 15.0* -- RBC 3.83* -- 3.72* 3.73* -- HGB 10.1* < > 10.0* 9.9* 9.8* HCT 30.9* < > 31.0* 30.0* 31.3* MCV 80.5 -- 83.3 80.4* -- RDW 17.1* -- 16.1* 16.1* -- PLT 537* -- 379 380 -- < > = values in this interval not displayed. BMP: Recent Labs 06/28/2140906/28/21121106/29/21 035 NA 138 135 137 K 3.4* [...] TRIG 105 06/28/2021 LIVER PROFILE: Recent Labs 06/28/2140906/28/211211 AST 16 19 ALT 25 19 BILITOT [...] N&V Elevated troponins: Downtrending likely type II SC -echo result pending Hypokalemia: Labs pending Jonathan Steve MD Internal Medicine Resident, PGY- 2 [facility]; [place], [place] 06/30/2021, 12:56 PM Associated attestation - [...] with episodic confusion; found wandering outside her senior care. Her history is significant for CIDP for [...] 0-6 Units SubCUTAneous Nightly PRN Meds include: nhsffcpgas-utfudebhascmf-nwsdzhor, hydrALAZINE, sodium chloride flush, sodium chloride, ondansetron [...] LABA1C 9.4 (H) 06/28/2021 LABMICR 7 06/25/2013 [id number] 374 06/28/2016 Impression and Plan: Ms. Meg [...] 06/30/2021 11:45 AM Speech Language Pathology Facility/Department: [facility] 1C STEP DOWN Initial Speech/Language/Cognitive [...] chronic IVIG every 2 weeks, transferred from [facility] for further neurological evaluation. She was [...] any ENT evaluation Diagnosis: Dysphonia Recommendations: Requires SENIOR MARKETING ASSOCIATE Intervention: Yes D/C Recommendations: To be determined [...] were not included. [facility] - Infectious diseases evaluation Progress Note admission [...] object in her eyes Infection Control Recommendations Elizabeth Precautions Antimicrobial Stewardship Recommendations Simplification of therapy Targeted therapy History of Present Illness: INITIAL HISTORY: Meg Georges is a 56 y.o.-year-old female who presented to the ED because of altered mental status. Patient is currently admitted under neurology service. Patient presented from a senior care after an episode of confusion overnight where she was found wandering outside her senior care. She had CT head done at outside facility which did not show any acute changes. Telestroke was consulted because of the concern with confusion, they recommended transfer to [facility] for MRI of the brain. BC: Staph A (MSSA) and LP neg CRP elevated and WBc up - creat normal 06/29 mentally recovered Neck pain x 1 mo Left sole callus was infected x 2 months ago at the [facility] She gets her IvIg through a peripheral [...] Friends and Family: Not on file Attends [employer] Services: Not on file Active Member of [...] following labs: CBC with Differential: Recent Labs 06/28/21 1212 06/29/21 0351 WBC 22.0* 15.0* HGB 10.0* 9.9* HCT 31.0* 30.0* PLT 379 380 LYMPHOPCT 4* 6* MONOPCT 4 3 BMP: Recent Labs 06/28/21 0410 06/28/21 0410 06/28/21 1212 06/29/21 0351 NA 138 < > 135 137 K 3.4* < > 4.0 3.2* CL 95* < > 97* 97* CO2 27 < > 23 25 BUN 25* < > 18 18 CREATININE 0.89 < > 0.70 0.76 MG 1.9 -- -- 2.3 < > = values in this interval not displayed. Hepatic Function Panel: Recent Labs 06/28/21 0410 06/28/21 0410 06/28/21 1212 06/28/21 1417 PROT 8.5* -- 8.0 -- [...] Stokes MD Office: Perfect serve / office [phone] Dr Crowe phoned aligner typewriter with new order d/c MRI d/t unknown foreign object in patients eyes. New order for bone scan for cervical spine,look for osteomyelitis. EEG completed Speech Language Pathology [facility] Speech Language Pathology Date: 06/29/2021 Patient [...] by: Chaitanya Pratt Graduate Clinician ROBBIE MCKEON, SENIOR MARKETING ASSOCIATE, M.A. [facility]-SENIOR MARKETING ASSOCIATE [facility] Pharmacokinetic Monitoring Service - [...] for the consult, David Donnelly Pharm.D., [place], [facility] 06/29/2021 9:15 AM Neurology Resident Progress [...] Gastrointestinal: No nausea, vomiting, diarrhea. Genitourinary: No teofilo [employer]X [employer] Work Phone: 07-10-2021 Hospital Discharge instructions Sebas Arnold RN - 07/10/2021 7:52 AM EDT Continuity of Care Form Patient Name: Meg Georges : 1965 Admit date: 06/28/2021 Discharge date: 07/10/2021 Code Status Order: Full Code Advance Directives: Admitting Physician: Silver Carmona MD PCP: Neri Santa Sr, DO Discharging Nurse: Thierry Quiles Hospital Unit/Room#: 0146/0146-01 Discharging Unit Phone Number: [phone] Emergency Contact: Extended Emergency Contact Information Primary Emergency Contact: Hina Thomas [facility] Mobile Relation: Brother/Sister Past Surgical History: Past Surgical History: Procedure Laterality Date ACHILLES TENDON SURGERY left BACK SURGERY L 4 and 5 1995, 1996 CERVICAL FUSION N/A 07/06/2021 POSTERIOR CERVICAL C1 LAMINECTOMY. LEFT C2 RHIZOTOMY, EXPLORATION OF EPIDURAL PHLEGMON performed by Alisia Crump DO at [facility] OR CHOLECYSTECTOMY EYE SURGERY [address] shunt for open angle glaucoma. MRI compatible- device is all silicone LAMINECTOMY 07/06/2021 Posterior C1, LEFT C2 RHIZOTOMY, EXPLORATION OF EPIDURAL PHLEGMON SHOULDER SURGERY right UPPER GASTROINTESTINAL ENDOSCOPY N/A 07/02/2021 EGD ESOPHAGOGASTRODUODENOSCOPY performed by Hari Wagner MD at [facility] Endoscopy Immunization History: There is no immunization history on file for this patient. Active Problems: Patient Active Problem List Diagnosis Code Cellulitis of left finger L03.012 Altered mental state R41.82 Encephalitis G04.90 Encephalopathy G93.40 CIDP (chronic inflammatory demyelinating polyneuropathy) ([facility]) G61.81 Sepsis ([facility]) A41.9 Bacteremia R78.81 Hypothyroidism E03.9 Hypokalemia E87.6 Type 2 diabetes mellitus with diabetic polyneuropathy ([facility]) E11.42 Primary hypertension I10 Upper GI bleed K92.2 Non-intractable vomiting R11.10 Unintentional weight loss R63.4 Acute metabolic encephalopathy G93.41 MSSA (methicillin susceptible Staphylococcus aureus) septicemia ([facility]) A41.01 CRP elevated R79.82 Bandemia D72.825 Allergy to multiple antibiotics Z88.1 Pyogenic inflammation of bone ([facility]) M86.9 Acute intractable headache R51.9 Acute osteomyelitis of cervical spine ([facility]) M46.22 Abscess in epidural space [...] - PICC - site {Anatomy; iv placement site:[id number]}, insertion date: 07/10/2021 Nursing Mobility/ADLs: Walking Assisted Transfer Assisted Bathing Assisted Dressing Assisted Toileting Assisted Feeding Assisted Adult Crossing Guard Assisted Med Delivery crushed Wound Care Documentation [...] 9447.3 [P.O.:300; I.V.:7386.3; IV Piggyback:1761] Out: 1944 [Urine:1940; Drains:5] Safety Concerns: History of Falls (last 30 days) and At Risk for Falls Impairments/Disabilities: Speech Nutrition Therapy: Current Nutrition Therapy: - Oral Diet: General and Dysphagia 2 mechanically altered Routes of Feeding: Oral Liquids: Athena Thick Liquids Daily Fluid Restriction: no Last [...] DME order): wheelchair and walker Other Treatments: Shelter Assessment Patient's personal belongings (please select all that are sent with patient): Glasses RN SIGNATURE: CASE MANAGEMENT/SOCIAL WORK SECTION Inpatient Status Date: Readmission Risk Assessment Score: Readmission Risk Risk of Unplanned Readmission: 23 Discharging to Facility/ Agency [facility] Available [place] [address] Contact Information [phone] Dialysis Facility (if applicable) Name: Address: Dialysis Schedule: Phone: Fax: Hospice Home Care Coordinator/Manager Fire signature: PHYSICIAN SECTION Prognosis: Good Condition at [...] the diagnosis listed and that she requires Shelter Facility for less 30 days. Update Admission [...] urinary retention documented in this encounter [facility] [employer] Phone: 06-28-2021 History of Present illness Narrative Updated sister, Hina. States will be in. This nurse called and spoke with Rachel (nurse) at [place] to get an updated med list. Rachel [...] she was vomiting. documented in this encounter [employer] Phone: 05-11-2021 History of Present illness Narrative The patient tolerated the infusion well without any complications. documented in this encounter [facility] 05-01-2021 Instructions Tia Baugh PA-C - 05/01/2021 [...] sent through Care Everywhere.Staph Infection: General Info (Omani)Moise (Omani)documented in this encounter [facility] 05-01-2021 History of Present illness Narrative PATIENT NAME: Meg Joaquin [facility] URGENT CARE: [address] [facility] [id number] DATE OF VISIT: 05/01/2021 DATE OF : [...] without toes, left 01/26/2019 Asthma Atherosclerosis of [place] arteries of left leg with ulceration of other part of foot ([facility]) 03/14/2017 Back problem Bilateral foot-drop 02/01/2016 Callus of foot 03/16/2019 Cataract Cellulitis and abscess of foot excluding toe 09/26/2014 Cellulitis of great toe, right 10/30/2015 Cellulitis of left foot 08/14/2017 Cellulitis of left lower limb 09/01/2015 Cellulitis of right toe 11/15/2015 Cellulitis of second toe of right foot 11/15/2016 Chronic ulcer of great toe of left foot ([facility]) 03/27/2015 Closed displaced fracture of first metatarsal bone 02/01/2016 Closed displaced fracture of first metatarsal bone of left foot with routine healing 04/17/2015 Contusion of great toe, right 11/04/2016 Contusion of right foot 11/11/2017 Corns and callosities 03/13/2016 Diabetes mellitus ([facility]) Dystrophic nail 11/15/2016 Foot cramps Foot ulcer ([facility]) 02/25/2019 OTHER PART OF FOOT Fracture of third toe, left, closed 02/15/2016 Fungal toenail infection 11/15/2016 GERD (gastroesophageal reflux disease) Glaucoma both eyes Heart murmur High cholesterol 03/27/2015 Hyperlipidemia Hypertension Ingrown toenail 10/30/2015 Leg cramps Metatarsalgia of both feet 10/07/2016 Neuropathy Non-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 ([facility]) 09/06/2016 Non-pressure chronic ulcer of left lower leg with fat layer exposed ([facility]) 03/28/2017 Non-pressure chronic ulcer of other part of left foot with fat layer exposed ([facility]) 08/14/2017 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 involvement without evidence of necrosis ([facility]) 03/14/2017 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) 08/14/2016 Nondisplaced fracture of proximal phalanx of right great toe 09/19/2017 Onychomycosis 12/13/2015 Osteomyelitis ([facility]) 04/23/2019 Peripheral vascular disease ([facility]) 08/17/2019 Pre-ulcerative calluses 08/13/2018 Right foot ulcer ([facility]) 09/26/2014 Shortness of breath Sprain of calcaneofibular ligament of right ankle 12/05/2017 Swelling of both ankles Swelling of both lower extremities Thyroid disorder 03/27/2015 Tinea unguium 08/13/2018 Traumatic closed fracture of phalanx of foot with minimal displacement 08/11/2017 Traumatic closed nondisplaced fracture of phalanx of right foot with delayed healing 09/08/2017 Type 2 diabetes mellitus with diabetic neuropathy ([facility]) 11/11/2017 Diabetic autonomic (poly) neuropathy Type 2 diabetes mellitus with foot ulcer ([facility]) 06/19/2016 Type 2 diabetes, uncontrolled, with peripheral circulatory disorder ([facility]) 03/28/2017 Xerosis cutis 01/17/2016 Family [...] for this visit. -Aerobic culture of the enrgglpx-horl-fns from the small finger of the right hand -Doxycycline 100 mg twice daily for 7 days -Mupirocin ointment to be applied 3 times daily to the affected area and a light layer -I have contacted Dr. Stanley's office in [place] and hoping to schedule a follow-up visit with Dr. Stanley for further evaluation of the patient's hand. Tia Baugh 05/01/2021 documented in this encounter [facility] 04-17-2021 History of Present illness Narrative [...] of her wounds documented in this encounter [facility] 04-12-2021 Note Procedure date: 04/12. Intraocular injection: 1.25 mg Bevacizumab (AVASTIN) 2.5mg/0.1 ML syringe ND: 79769-259-56, Lot: [id number], Expiration date: 06/10/2021 Route: Intravitreal, Site: Right Eye Notes Bevacizumab (Avastin) Intraocular Injection Right Eye - OPHTHALMOLOGY PROCEDURE NOTE PROCEDURE PERFORMED BY: Sharon Hernandez MD HOT KNIFE FOXING CUTTER(S): None ATTENDING: Sharon Hernandez MD PROCEDURE DATE: 04/12/2021 PROCEDURE START TIME: 10:47 AM INDICATIONS: Treatment of ICD-10-CM 1. Diabetic macular edema E11.311 CO BEVACIZUMAB SOLN - OD EYE: Right (OD) [...] THIS PROCEDURE REQUIRE A UNIVERSAL PROTOCOL? Yes. Elizabeth Protocol is required. Pre-procedure verification was completed. [...] saline and an antibiotic drop was instilled. [facility] 04-05-2021 Note Procedure date: 04/05. Intraocular injection: 1.25 mg Bevacizumab (AVASTIN) 2.5mg/0.1 ML syringe NDC: 57220-949-19, Lot: [id number], Expiration date: 05/01/2021 Route: Intravitreal, Site: Left Eye Notes Bevacizumab (Avastin) Intraocular Injection Left Eye - OPHTHALMOLOGY PROCEDURE NOTE PROCEDURE PERFORMED BY: Sharon Hernandez MD HOT KNIFE FOXING CUTTER(S): None ATTENDING: Sharon Hernandez MD PROCEDURE DATE: 04/05/2021 PROCEDURE START TIME: 11:15 AM INDICATIONS: Treatment of ICD-10-CM 1. 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 Yes. Elizabeth Protocol is required. Pre-procedure verification was completed. [...] saline and an antibiotic drop was instilled. [facility] 03-27-2021 History of Present illness Narrative Left [...] of her wounds documented in this encounter [facility] 02-20-2021 Instructions Jef Sierra Jr., DPM - 02/20/2021 10:07 AM EST Continue topical antibiotic ointment and bandaid with padding. documented in this encounter [facility] 02-20-2021 History of Present illness Narrative [...] without toes, left 01/26/2019 Asthma Atherosclerosis of [place] arteries of left leg with ulceration of [...] 11/11/2017 Corns and callosities 03/13/2016 Diabetes mellitus ([facility]) Dystrophic nail 11/15/2016 Foot cramps Foot ulcer ([facility]) 02/25/2019 OTHER PART OF FOOT [...] right ankle limited to breakdown of skin ([facility]) 08/14/2016 Nondisplaced fracture of proximal phalanx of right great toe 09/19/2017 Onychomycosis 12/13/2015 Osteomyelitis ([facility]) 04/23/2019 Peripheral vascular disease ([facility]) 08/17/2019 Pre-ulcerative calluses 08/13/2018 Right foot ulcer ([facility]) 09/26/2014 Shortness of breath Sprain of calcaneofibular ligament of right ankle 12/05/2017 Swelling of both ankles Swelling of both lower extremities Thyroid disorder 03/27/2015 Tinea unguium 08/13/2018 Traumatic closed fracture of phalanx of foot with minimal displacement 08/11/2017 Traumatic closed nondisplaced fracture of phalanx of right foot with delayed healing 09/08/2017 Type 2 diabetes mellitus with diabetic neuropathy ([facility]) 11/11/2017 Diabetic autonomic (poly) neuropathy Type 2 diabetes mellitus with foot ulcer ([facility]) 06/19/2016 Type 2 diabetes, uncontrolled, with peripheral circulatory disorder ([facility]) 03/28/2017 Xerosis cutis 01/17/2016 Past [...] clean dry and intact transtion back to [facility] boot with Pegassist -Follow-up in 2 weeks to review. documented in this encounter [facility] 02-14-2021 Note Procedure date: 01/18. Right [...] Recommendation for management is to continue treatment. [facility] 02-14-2021 Note Procedure date: 01/18. Intraocular injection: 1.25 mg Bevacizumab (AVASTIN) 2.5mg/0.1 ML syringe [facility]: 35194-923-52, Lot: [id number], Expiration date: 03/07/2021 Route: Intravitreal, Site: Right Eye Notes Bevacizumab (Avastin) Intraocular Injection Right Eye - OPHTHALMOLOGY PROCEDURE NOTE PROCEDURE PERFORMED BY: Sharon Hernandez MD HOT KNIFE FOXING CUTTER(S): None ATTENDING: Sharon Hernandez MD PROCEDURE DATE: 02/14/2021 PROCEDURE START TIME: 10:25 AM INDICATIONS: Treatment of ICD-10-CM 1. Diabetic macular edema E11.311 CO BEVACIZUMAB SOLN - OD EYE: Right (OD) [...] THIS PROCEDURE REQUIRE A UNIVERSAL PROTOCOL? Yes. Elizabeth Protocol is required. Pre-procedure verification was completed. [...] saline and an antibiotic drop was instilled. [facility] 02-12-2021 Note Procedure date: 01/18. Intraocular injection: 1.25 mg Bevacizumab (AVASTIN) 2.5mg/0.1 ML syringe [facility]: 53741-738-53, Lot: [id number], Expiration date: 03/01/2021 Route: Intravitreal, Site: Left Eye Notes Bevacizumab (Avastin) Intraocular Injection Left Eye - OPHTHALMOLOGY PROCEDURE NOTE PROCEDURE PERFORMED BY: Sharon Hernandez MD HOT KNIFE FOXING CUTTER(S): None ATTENDING: Sharon Hernandez MD PROCEDURE DATE: 02/12/2021 PROCEDURE START TIME: 10:46 AM INDICATIONS: Treatment of ICD-10-CM 1. Diabetic macular edema E11.311 bevacizumab 1.25 MG/0.05 ML Solution CO BEVACIZUMAB SOLN - OS CO BEVACIZUMAB SOLN - OS EYE: Left (OS) [...] THIS PROCEDURE REQUIRE A UNIVERSAL PROTOCOL? Yes. Elizabeth Protocol is required. Pre-procedure verification was completed. [...] saline and an antibiotic drop was instilled. [facility] 2021 History of Present illness Narrative HPI [...] without toes, left 01/26/2019 Asthma Atherosclerosis of [place] arteries of left leg with ulceration of [...] right great toe 09/19/2017 Onychomycosis 12/13/2015 Osteomyelitis ([facility]) 04/23/2019 Peripheral vascular disease ([facility]) 08/17/2019 Pre-ulcerative calluses 08/13/2018 Right foot ulcer ([facility]) 09/26/2014 Shortness of breath Sprain [...] Type 2 diabetes mellitus with foot ulcer ([facility]) 06/19/2016 Type 2 diabetes, uncontrolled, with peripheral circulatory disorder ([facility]) 03/28/2017 Xerosis cutis 01/17/2016 Past [...] clean dry and intact transtion back to [facility] boot with Pegassist -Follow-up in 2 weeks to review. documented in this encounter [facility] 01-30-2021 History of Present illness Narrative [...] without toes, left 01/26/2019 Asthma Atherosclerosis of [place] arteries of left leg with ulceration of other part of foot ([facility]) 03/14/2017 Back problem Bilateral foot-drop [...] 11/11/2017 Corns and callosities 03/13/2016 Diabetes mellitus ([facility]) Dystrophic nail 11/15/2016 Foot cramps Foot ulcer ([facility]) 02/25/2019 OTHER PART OF FOOT [...] of left foot with fat layer exposed ([facility]) 08/14/2017 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 involvement without evidence of necrosis ([facility]) 03/14/2017 Non-pressure chronic ulcer of right ankle limited to breakdown of skin ([facility]) 08/14/2016 Nondisplaced fracture of proximal phalanx of right great toe 09/19/2017 Onychomycosis 12/13/2015 Osteomyelitis ([facility]) 04/23/2019 Peripheral vascular disease ([facility]) 08/17/2019 Pre-ulcerative calluses 08/13/2018 Right foot ulcer ([facility]) 09/26/2014 Shortness of breath Sprain of calcaneofibular ligament of right ankle 12/05/2017 Swelling of both ankles Swelling of both lower extremities Thyroid disorder 03/27/2015 Tinea unguium 08/13/2018 Traumatic closed fracture of phalanx of foot with minimal displacement 08/11/2017 Traumatic closed nondisplaced fracture of phalanx of right foot with delayed healing 09/08/2017 Type 2 diabetes mellitus with diabetic neuropathy ([facility]) 11/11/2017 Diabetic autonomic (poly) neuropathy Type 2 diabetes mellitus with foot ulcer ([facility]) 06/19/2016 Type 2 diabetes, uncontrolled, with peripheral circulatory disorder ([facility]) 03/28/2017 Xerosis cutis 01/17/2016 Past [...] clean dry and intact transtion back to [facility] boot with Pegassist -Follow-up in 1 weeks to review. documented in this encounter [facility] 01-30-2021 Instructions Jef Sierra Jr., DPM - 01/30/2021 10:50 AM EST Continue ashu at home documented in this encounter [facility] 01-24-2021 History of Present illness Narrative [...] without toes, left 01/26/2019 Asthma Atherosclerosis of [place] arteries of left leg with ulceration of other part of foot ([facility]) 03/14/2017 Back problem Bilateral foot-drop [...] 11/11/2017 Corns and callosities 03/13/2016 Diabetes mellitus ([facility]) Dystrophic nail 11/15/2016 Foot cramps Foot ulcer ([facility]) 02/25/2019 OTHER PART OF FOOT Fracture of third toe, left, closed 02/15/2016 Fungal toenail infection 11/15/2016 GERD (gastroesophageal reflux disease) Glaucoma both eyes Heart murmur High cholesterol 03/27/2015 Hyperlipidemia Hypertension Ingrown toenail 10/30/2015 Leg cramps Metatarsalgia of both feet 10/07/2016 Neuropathy Non-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 ([facility]) 09/06/2016 Non-pressure chronic ulcer of left lower leg with fat layer exposed ([facility]) 03/28/2017 Non-pressure chronic ulcer of other part of left foot with fat layer exposed ([facility]) 08/14/2017 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 involvement without evidence of necrosis ([facility]) 03/14/2017 Non-pressure chronic ulcer of right ankle limited to breakdown of skin ([facility]) 08/14/2016 Nondisplaced fracture of proximal phalanx of right great toe 09/19/2017 Onychomycosis 12/13/2015 Osteomyelitis ([facility]) 04/23/2019 Peripheral vascular disease ([facility]) 08/17/2019 Pre-ulcerative calluses 08/13/2018 Right foot ulcer ([facility]) 09/26/2014 Shortness of breath Sprain [...] 2 diabetes, uncontrolled, with peripheral circulatory disorder ([facility]) 03/28/2017 Xerosis cutis 01/17/2016 Past [...] weeks to review. documented in this encounter [facility] 01-16-2021 History of Present illness Narrative [...] without toes, left 01/26/2019 Asthma Atherosclerosis of [place] arteries of left leg with ulceration of [...] Dystrophic nail 11/15/2016 Foot cramps Foot ulcer ([facility]) 02/25/2019 OTHER PART OF FOOT Fracture of third toe, left, closed 02/15/2016 Fungal toenail infection 11/15/2016 GERD (gastroesophageal reflux disease) Glaucoma both eyes Heart murmur High cholesterol 03/27/2015 Hyperlipidemia Hypertension Ingrown toenail 10/30/2015 Leg cramps Metatarsalgia of both feet 10/07/2016 Neuropathy Non-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 ([facility]) 09/06/2016 Non-pressure chronic ulcer of left lower leg with fat layer exposed ([facility]) 03/28/2017 Non-pressure chronic ulcer of other part of left foot with fat layer exposed ([facility]) 08/14/2017 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 involvement without evidence of necrosis ([facility]) 03/14/2017 Non-pressure chronic ulcer of right ankle limited to breakdown of skin ([facility]) 08/14/2016 Nondisplaced fracture of proximal phalanx of right great toe 09/19/2017 Onychomycosis 12/13/2015 Osteomyelitis ([facility]) 04/23/2019 Peripheral vascular disease ([facility]) 08/17/2019 Pre-ulcerative calluses 08/13/2018 Right foot ulcer ([facility]) 09/26/2014 Shortness of breath Sprain of calcaneofibular ligament of right ankle 12/05/2017 Swelling of both ankles Swelling of both lower extremities Thyroid disorder 03/27/2015 Tinea unguium 08/13/2018 Traumatic closed fracture of phalanx of foot with minimal displacement 08/11/2017 Traumatic closed nondisplaced fracture of phalanx of right foot with delayed healing 09/08/2017 Type 2 diabetes mellitus with diabetic neuropathy ([facility]) 11/11/2017 Diabetic autonomic (poly) neuropathy Type 2 diabetes mellitus with foot ulcer ([facility]) 06/19/2016 Type 2 diabetes, uncontrolled, with peripheral circulatory disorder ([facility]) 03/28/2017 Xerosis cutis 01/17/2016 Past [...] weeks to review. documented in this encounter [facility] 01-16-2021 Instructions Jef Sierra Jr., DPM - 01/16/2021 11:27 AM EST Keep bandage clean dry and intat documented in this encounter [facility] 01-09-2021 History of Present illness Narrative [...] without toes, left 01/26/2019 Asthma Atherosclerosis of [place] arteries of left leg with ulceration of other part of foot ([facility]) 03/14/2017 Back problem Bilateral foot-drop 02/01/2016 Callus of foot 03/16/2019 Cataract Cellulitis and abscess of foot excluding toe 09/26/2014 Cellulitis of great toe, right 10/30/2015 Cellulitis of left foot 08/14/2017 Cellulitis of left lower limb 09/01/2015 Cellulitis of right toe 11/15/2015 Cellulitis of second toe of right foot 11/15/2016 Chronic ulcer of great toe of left foot ([facility]) 03/27/2015 Closed displaced fracture of first metatarsal bone 02/01/2016 Closed displaced fracture of first metatarsal bone of left foot with routine healing 04/17/2015 Contusion of great toe, right 11/04/2016 Contusion of right foot 11/11/2017 Corns and callosities 03/13/2016 Diabetes mellitus ([facility]) Dystrophic nail 11/15/2016 Foot cramps Foot ulcer ([facility]) 02/25/2019 OTHER PART OF FOOT Fracture of third toe, left, closed 02/15/2016 Fungal toenail infection 11/15/2016 GERD (gastroesophageal reflux disease) Glaucoma both eyes Heart murmur High cholesterol 03/27/2015 Hyperlipidemia Hypertension Ingrown toenail 10/30/2015 Leg cramps Metatarsalgia of both feet 10/07/2016 Neuropathy Non-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 ([facility]) 09/06/2016 Non-pressure chronic ulcer of left lower leg with fat layer exposed ([facility]) 03/28/2017 Non-pressure chronic ulcer of other part of left foot with fat layer exposed ([facility]) 08/14/2017 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 involvement without evidence of necrosis ([facility]) 03/14/2017 Non-pressure chronic ulcer of right ankle limited to breakdown of skin ([facility]) 08/14/2016 Nondisplaced fracture of proximal phalanx of right great toe 09/19/2017 Onychomycosis 12/13/2015 Osteomyelitis ([facility]) 04/23/2019 Peripheral vascular disease ([facility]) 08/17/2019 Pre-ulcerative calluses 08/13/2018 Right [...] weeks to review. documented in this encounter [facility] 01-09-2021 Instructions Jef Sierra Jr., DPM - 01/09/2021 8:49 AM EST Keep bandage clean dry and intact documented in this encounter [facility] 01-02-2021 Instructions Jef Sierra Jr., DPM - 01/02/2021 9:19 AM EST Keep bandages clean dry and intact for week documented in this encounter [facility] 01-02-2021 History of Present illness Narrative [...] without toes, left 01/26/2019 Asthma Atherosclerosis of [place] arteries of left leg with ulceration of [...] 11/11/2017 Corns and callosities 03/13/2016 Diabetes mellitus ([facility]) Dystrophic nail 11/15/2016 Foot cramps Foot ulcer ([facility]) 02/25/2019 OTHER PART OF FOOT Fracture of third toe, left, closed 02/15/2016 Fungal toenail infection 11/15/2016 GERD (gastroesophageal reflux disease) Glaucoma both eyes Heart murmur High cholesterol 03/27/2015 Hyperlipidemia Hypertension Ingrown toenail 10/30/2015 Leg cramps Metatarsalgia of both feet 10/07/2016 Neuropathy Non-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 ([facility]) 09/06/2016 Non-pressure chronic ulcer of left lower leg with fat layer exposed ([facility]) 03/28/2017 Non-pressure chronic ulcer of other part of left foot with fat layer exposed (HCC) 08/14/2017 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 involvement without evidence of necrosis ([facility]) 03/14/2017 Non-pressure chronic ulcer of right ankle limited to breakdown of skin ([facility]) 08/14/2016 Nondisplaced fracture of proximal phalanx of right great toe 09/19/2017 Onychomycosis 12/13/2015 Osteomyelitis ([facility]) 04/23/2019 Peripheral vascular disease ([facility]) 08/17/2019 Pre-ulcerative calluses 08/13/2018 Right foot ulcer ([facility]) 09/26/2014 Shortness of breath Sprain of calcaneofibular ligament of right ankle 12/05/2017 Swelling of both ankles Swelling of both lower extremities Thyroid disorder 03/27/2015 Tinea unguium 08/13/2018 Traumatic closed fracture of phalanx of foot with minimal displacement 08/11/2017 Traumatic closed nondisplaced fracture of phalanx of right foot with delayed healing 09/08/2017 Type 2 diabetes mellitus with diabetic neuropathy ([facility]) 11/11/2017 Diabetic autonomic (poly) neuropathy Type 2 diabetes mellitus with foot ulcer ([facility]) 06/19/2016 Type 2 diabetes, uncontrolled, with peripheral circulatory disorder ([facility]) 03/28/2017 Xerosis cutis 01/17/2016 Past [...] weeks to review. documented in this encounter [facility] 12-27-2020 Note Procedure date: 12/18. Intraocular injection: 1.25 mg Bevacizumab (AVASTIN) 2.5mg/0.1 ML syringe ND: 50956-455-22, Lot: [id number], Expiration date: 12/29/2020 Route: Intravitreal, Site: Left Eye Notes Bevacizumab (Avastin) Intraocular Injection Left Eye - OPHTHALMOLOGY PROCEDURE NOTE PROCEDURE PERFORMED BY: Sharon Hernandez MD HOT KNIFE FOXING CUTTER(S): None ATTENDING: Sharon Hernandez MD PROCEDURE DATE: 12/27/2020 PROCEDURE START TIME: 10:17 AM INDICATIONS: Treatment of ICD-10-CM 1. Diabetic macular edema E11.311 OCT/HRT MACULA OU FUNDUS PHOTOGRAPHY-OU CO BEVACIZUMAB SOLN - OS CO BEVACIZUMAB SOLN - OS CANCELED: CO BEVACIZUMAB SOLN - OD EYE: Left (OS) [...] THIS PROCEDURE REQUIRE A UNIVERSAL PROTOCOL? Yes. Elizabeth Protocol is required. Pre-procedure verification was completed. [...] saline and an antibiotic drop was instilled. [facility] 12-27-2020 Note Procedure date: 12/18. Right Eye [...] Recommendation for management is to continue treatment. [facility] 12-19-2020 Instructions Jef Sierra Jr., DPM - 12/19/2020 11:28 AM EDT Keep bandage clean dry and intact documented in this encounter [facility] 12-19-2020 History of Present illness Narrative [...] without toes, left 01/26/2019 Asthma Atherosclerosis of [place] arteries of left leg with ulceration of [...] 11/11/2017 Corns and callosities 03/13/2016 Diabetes mellitus ([facility]) Dystrophic nail 11/15/2016 Foot cramps Foot ulcer (HCC) 02/25/2019 OTHER PART OF FOOT Fracture of third toe, left, closed 02/15/2016 Fungal toenail infection 11/15/2016 GERD (gastroesophageal reflux disease) Glaucoma both eyes Heart murmur High cholesterol 03/27/2015 Hyperlipidemia Hypertension Ingrown toenail 10/30/2015 Leg cramps Metatarsalgia of both feet 10/07/2016 Neuropathy Non-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 ([facility]) 09/06/2016 Non-pressure chronic ulcer of [...] right great toe 09/19/2017 Onychomycosis 12/13/2015 Osteomyelitis ([facility]) 04/23/2019 Peripheral vascular disease ([facility]) 08/17/2019 Pre-ulcerative calluses 08/13/2018 Right foot ulcer ([facility]) 09/26/2014 Shortness of breath Sprain [...] Type 2 diabetes mellitus with foot ulcer ([facility]) 06/19/2016 Type 2 diabetes, uncontrolled, [...] Friends and Family: Not on file Attends [employer] Services: Not on file Active Member of [...] weeks to review. documented in this encounter [facility] 12-13-2020 Note Procedure date: 11/18. [...] Recommendation for management is to continue treatment. [facility] 12-13-2020 Note Procedure date: 11/18. Right Eye Quality was good. Findings include subretinal fluid. Interval change is same. Recommendation for management is to continue treatment. Left Eye Quality was good. Findings include subretinal fluid. Interval change is same. Recommendation for management is to continue treatment. [facility] 12-13-2020 Note Procedure date: 11/18. Intraocular injection: 1.25 mg Bevacizumab (AVASTIN) 2.5mg/0.1 ML syringe [facility]: 62595-004-60, Lot: [id number], Expiration date: 12/26/2020 Route: Intravitreal, Site: Right Eye Notes Bevacizumab (Avastin) Intraocular Injection Right Eye - OPHTHALMOLOGY PROCEDURE NOTE PROCEDURE PERFORMED BY: Sharon Hernandez MD HOT KNIFE FOXING CUTTER(S): None ATTENDING: Sharon Hernandez MD PROCEDURE DATE: 12/13/2020 PROCEDURE START TIME: 10:05 AM INDICATIONS: Treatment of ICD-10-CM 1. Diabetic macular edema E11.311 bevacizumab 1.25 MG/0.05 ML Solution CO BEVACIZUMAB SOLN - OD OCT/HRT MACULA OU FUNDUS PHOTOGRAPHY-OU CO BEVACIZUMAB SOLN - OD OCT/HRT MACULA OU [...] THIS PROCEDURE REQUIRE A UNIVERSAL PROTOCOL? Yes. Elizabeth Protocol is required. Pre-procedure verification was completed. [...] saline and an antibiotic drop was instilled. [facility] 10-17-2020 History of Present illness Narrative Left [...] as elevated morbidity. documented in this encounter [facility] 10-11-2020 Note Procedure date: 10/10. Right Eye Quality was good. Interval change is same. Recommendation for management is to change treatment. Left Eye Quality was poor. Interval change is same. Recommendation for management is to change treatment. Notes OD: inferior thinning, stable to 2019 OS: polar thinning, stable to 2019 GCC: OD: stable inferotemporal thinning OS: complicated [...] all questions answered Olga Lidia Matos M.D. [place] Worker Helper of Ophthalmology Glaucoma Division [facility] Department of Ophthalmology and Visual Science [...] OS with Dr. Hernandez. 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 documented in this encounter [facility] 10-10-2020 Instructions Olga Lidia Matos MD - 10/10/2020 1:45 PM EDT Right Eye: Dorzolamide/Timolol 2 times a day Rhopressa 1 drop at bedtime Left Eye: Dorzolamide/Timolol 2 times a day documented in this encounter [facility] 10-03-2020 History of Present illness Narrative I was available on site at [place] for any urgent infusion issues. Jovon Bowers MD Professor of Neurology Director, Neuromuscular Division documented in this encounter [facility] 09-26-2020 History of Present illness Narrative [facility] [...] Gluc Sensor (FreeStyle Juanpablo 14 Day Sensor) [facility], Inject 2 Each under the skin every [...] UNIT/ML Solution Pen-injector injection, 3 samples given--Lot [id number], exp 10/2021, Disp: 3 Prefilled Pen/Syringe, Rfl: 0 Insulin Lispro, 1 Unit Dial, 100 UNIT/ML Solution Pen-injector, Use less than 30 units daily with sliding scale., Disp: 5 Prefilled Pen/Syringe, Rfl: 3 Multiple Vitamin (MULTI-DAY PO), take 1 tablet by mouth daily.., Disp: , Rfl: tiZANidine 4 MG Tab tablet, tiZANidinetiZANidine (ZANAFLEX) 4 MG tablet as needed. Lolly Haq [facility] ([id number]), Disp: , Rfl: acetaZOLAMIDE 250 MG tablet, Take 1 tablet by mouth 2 times daily. 90 day supply (Patient not taking: Reported on 09/13/2020), Disp: 180 tablet, Rfl: 1 cyanocobalamin 1000 MCG Tab, Take 2 tablets by mouth daily., Disp: 60 tablet, Rfl: 11 Insulin Degludec (Tresiba FlexTouch) 100 UNIT/ML Solution Pen-injector injection, 3 Samples given [id number], Exp 10/2021 (Patient not taking: Reported on 09/26/2020), Disp: 9 mL, Rfl: 0 Insulin Lispro, 1 Unit Dial, (HumaLOG KwikPen) 100 UNIT/ML Solution Pen-injector, Sample given [id number], exp 09/2022 (Patient not taking: Reported on 09/13/2020), Disp: 1 Prefilled Pen/Syringe, Rfl: 0 Insulin Lispro, 1 Unit Dial, (HumaLOG KwikPen) 100 UNIT/ML Solution Pen-injector, Sample given [id number], Exp-09/2022 (Patient not taking: Reported on 09/26/2020), [...] Social Gatherings with Friends and Family: Attends [employer] Services: Active Member of Clubs or Organizations: Attends Club or Organization Meetings: Marital Status: Intimate Partner Violence: Fear of Current or Ex-Partner: Emotionally Abused: Physically Abused: Sexually Abused: documented in this encounter [facility] 09-26-2020 Instructions Franck Mtz MD - 09/26/2020 [...] results come back. documented in this encounter [facility] 09-21-2020 History of Present illness Narrative The patient tolerated the infusion well without any complications. documented in this encounter [facility] 09-14-2020 History of Present illness [...] without toes, left 01/26/2019 Asthma Atherosclerosis of [place] arteries of left leg with ulceration of [...] 11/11/2017 Corns and callosities 03/13/2016 Diabetes mellitus ([facility]) Dystrophic nail 11/15/2016 Foot cramps Foot ulcer (HCC) 02/25/2019 OTHER PART OF FOOT Fracture of third toe, left, closed 02/15/2016 Fungal toenail infection 11/15/2016 GERD (gastroesophageal reflux disease) Glaucoma both eyes Heart murmur High cholesterol 03/27/2015 Hyperlipidemia Hypertension Ingrown toenail 10/30/2015 Leg cramps Metatarsalgia of both feet 10/07/2016 Neuropathy Non-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 ([facility]) 09/06/2016 Non-pressure chronic ulcer of [...] right great toe 09/19/2017 Onychomycosis 12/13/2015 Osteomyelitis ([facility]) 04/23/2019 Peripheral vascular disease ([facility]) 08/17/2019 Pre-ulcerative calluses 08/13/2018 Right foot ulcer ([facility]) 09/26/2014 Shortness of breath Sprain [...] Type 2 diabetes mellitus with foot ulcer ([facility]) 06/19/2016 Type 2 diabetes, uncontrolled, [...] Social Gatherings with Friends and Family: Attends [employer] Services: Active Member of Clubs or Organizations: [...] need for procedure. documented in this encounter [facility] 09-13-2020 History of Present illness Narrative [...] a fist. She is currently using the [employer] sensor system to check her blood sugars when she can afford to pay shi for the sensors. She is attempting to wear the sensors as much as possible since she cannot do fingersticks, she is paying shi for the sensors. She has neuropathy in a stocking glove distribution. She continues to see a neurologist. She is also seeing a assistant manager/embalmer and wound care. She has a follow-up [...] feels. To get her in touch with [employer], however she does not answer her phone if she does not recognize the number, so likely has been missing their calls. We will coordinate with [employer]; the tracking features of [employer] will undoubtedly help us help her. Hypothyroidism: [...] The patient is nervous/anxious. 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)- Primary [facility] Diagnosis Partial thickness burn of single finger of right hand excluding thumb, initial encounter- Primary Wound infection Posttraumatic wound infection not elsewhere classified Laceration of right thumb, initial encounter [facility] Diagnosis 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 [facility] Diagnosis Type 2 diabetes mellitus with diabetic polyneuropathy, with long-term current use of insulin- Primary Acquired hypothyroidism Unspecified hypothyroidism Diabetic macular edema- Primary [facility] Diagnosis 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 Diabetic macular edema- Primary [facility] Diagnosis 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 Diabetic macular edema- Primary [facility] Diagnosis 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 Diabetic macular edema- Primary [facility] Diagnosis 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 Diabetic macular edema- Primary [facility] Diagnosis Primary open angle glaucoma (POAG) of right eye, severe stage- Primary Primary open angle glaucoma (POAG) of left eye, severe stage Diabetic macular edema Pseudophakia Lens replaced by other means [facility] Diagnosis Non-intractable vomiting with nausea, unspecified vomiting type- Primary Altered mental status, unspecified altered mental status type Leukocytosis, unspecified type documented in this encounter [employer] Phone: evaluation note* Diagnosis Sepsis (HCC)- Primary [...] Other drug allergy Pyogenic inflammation of bone ([facility]) Unspecified osteomyelitis, site unspecified Acute intractable headache documented in this encounter [employer] Phone: evaluation note* Diagnosis COVID-19- Primary Pneumonia of left lower lobe due to infectious organism Hypokalemia Hypopotassemia Hypomagnesemia Disorders of magnesium metabolism 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 documented in this encounter [employer] Phone: evalglfgkh note* Diagnosis COVID- Primary Encephalopathy Encephalopathy, unspecified 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 Hypokalemia Hypopotassemia Primary hypertension Unspecified essential hypertension Type 2 diabetes mellitus with diabetic polyneuropathy ([facility]) Type II or unspecified type diabetes mellitus with neurological manifestations, not stated as uncontrolled Hypothyroidism Unspecified hypothyroidism Hypomagnesemia Disorders of magnesium metabolism CIDP (chronic inflammatory demyelinating polyneuropathy) ([facility]) Chronic inflammatory demyelinating polyneuritis Bacteremia MSSA (methicillin susceptible Staphylococcus aureus) septicemia (HCC) Methicillin susceptible staphylococcus aureus septicemia Bandemia CRP elevated Elevated C-reactive protein (CRP) Metabolic encephalopathy Normocytic anemia Anemia, unspecified Acute respiratory failure with hypoxemia ([facility]) Septic arthritis of cervical spine ([facility]) Pyogenic arthritis, other specified sites Atlantoaxial instability Other joint derangement, not elsewhere classified, other specified site ACP (advance care planning) Other specified counseling Goals of care, counseling/discussion Other specified counseling Encounter for palliative care Feeding difficulties Feeding difficulties and mismanagement On tube feeding diet Pathological fracture of other site, unspecified pathological cause, initial encounter documented in this encounter [employer] Phone: evaluation noteNo assessment information available [facility] Work Phone: Evaluation note* Diagnosis Atlantoaxial instability Other joint derangement, not elsewhere classified, other specified site S/P cervical spinal fusion Arthrodesis status documented in this encounter [employer] Work Phone: evaluation note* Diagnosis S/P cervical spinal fusion Arthrodesis status documented in this encounter [employer] Phone: evaluation note* Diagnosis Primary open angle glaucoma (POAG) of both eyes, moderate stage- Primary 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 mellitus (CMS/HCC) Left posterior capsular opacification Unspecified after-cataract Dry eyes Unspecified tear film insufficiency [facility] Diagnosis Other atopic dermatitis- Primary Traumatic ulcer of left foot, unspecified ulcer stage (HCC) Impetigo [facility] Diagnosis Primary open angle glaucoma (POAG) of both eyes, moderate stage- Primary 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 [ [address] [place] [address] Services: [place] Office - [address] [address] - Phone Number [phone] [place] Office - [address] [facility] [address] - Phone Number [phone] ] Rest and limit exertion / strenous activity. RETURN if symptoms CHANGE, NOT IMPROVING or need help.Take Medications as prescribed (if prescribed - Please take or use as directed) * Attachments The following attachments cannot be sent through Care Everywhere. * Cellulitis (Omani) in this encounter* Instructions* Andres Lubin MD [...] sent through Care Everywhere. * Nail Avulsion (Omani) documented in this encounter Additional Source Comments [...] CIDP (chronic inflammatory demyelinating polyneuropathy) Krystyna Busby, [facility] [address] [facility] [id number] [place] [address] Infusion Suite [facility] [address] [place] [address] Referral ID Status Reason Start Date Expiration Date V isits Requested Visits Authorized [id number] Auth Not Needed 06/24/2018 100 100 Reason Comments Follow-up Diabetes Thyroid Problem Reason Comments Infusion Visit IVIG Specialty Diagnoses / Procedures Referred By Jeramy coombs Referred To Contact Diagnoses CIDP (chronic inflammatory demyelinating polyneuropathy) Qi Krystyna, [facility] [address] [facility] [id number] [place] [address] [address]fusion [address] [facility] [address] [place] [address] Reason Comments Follow-up Reason Comments Glaucoma Follow-up Reason Comments Nausea Pt came from [facility]. Per EMS she was outside and was brought back inside they were unaware she was outside. Per [facility] and EMS she is having bizarre behavior Emesis Altered Mental Status Reason Comments Altered Mental Status Specialty Diagnoses / Procedures Referred By Jeramy coombs Referred To Contact Diagnoses Altered mental state [facility] Emergency Dept [address] [place] [address] [facility] [address] [address] [place] [address] Referral ID Status Reason Start Date Expiration Date Visits Re quested Visits Authorized [id number] 1 1 Reason Comments Hypertension Patient was at [facility] for blood transfusion/low potassium transferred to ED for evaluation Reason Comments Follow-up Eye Exam Reason Comments Eczema Reason Comments Glaucoma INFORMATION SOURCE (unrecogn ized section and content) DATE CREATED AUTHOR 04/08/2018 [facility] DATE CREATED AUTHOR AUTHOR'S ORGANIZ ATION 06/07/2019 [facility] DATE CREATED AUTHOR AUTHOR'S ORGANIZ ATION 12/25/2019 [facility] DATE CREATED AUTHOR AUTHOR'S ORGANIZ ATION 02/13/2020 [facility] DATE CREATED AUTHOR AUTHOR'S ORGANIZ ATION 04/18/2021 [facility] DATE CREATED AUTHOR AUTHOR'S ORGANIZ ATION 05/02/2021 [facility] DATE CREATED AUTHOR AUTHOR'S ORGANIZ ATION 05/07/2021 [facility] DATE CREATED AUTHOR AUTHOR'S ORGANIZ ATION 05/09/2021 [facility] DATE CREATED AUTHOR AUTHOR'S ORGANIZ ATION 05/15/2021 [facility] DATE CREATED AUTHOR AUTHOR'S ORGANIZ ATION 06/01/2021 [facility] DATE CREATED AUTHOR AUTHOR'S ORGANIZ ATION 06/13/2021 [facility] DATE CREATED AUTHOR AUTHOR'S ORGANIZ ATION 09/05/[address] [facility] DATE CREATED AUTHOR AUTHOR'S ORGANIZ ATION 10/30/2021 [facility] DATE CREATED AUTHOR AUTHOR'S ORGANIZ ATION 11/27/2021 [facility] DATE CREATED AUTHOR AUTHOR'S ORGANIZ ATION 12/10/2021 [facility] DATE CREATED AUTHOR AUTHOR'S ORGANIZ ATION 11/25/2022 [facility] DATE CREATED AUTHOR AUTHOR'S ORGANIZ ATION 01/26/2023 [facility] DATE CREATED AUTHOR AUTHOR'S ORGANIZ ATION 05/07/2024 [facility] DATE CREATED AUTHOR AUTHOR'S ORGANIZ ATION 09/28/2024 [facility] dical Specialists EPIC Lindsey Bradshaw LPN [...] Care Teams (unrecognized sec tion and content) Assault Amphibious Vehicle Officer Relationship Specialty Start Date End Date Neri Santa, [address] [place] [address] PCP - General Family Medicine 03/28/17 Pili Gilliam, MARK Consulting Physician Podiatry 04/07/17 Reji Miramontes III, DO Consulting Physician Vascular Surgery 04/07/17 Assault Amphibious Vehicle Officer Relationship Specialty Start Date End Date Neri Santa, DO [address] [place] [address] PCP - General Family Medicine 03/28/17 Pili Gilliam, MARK Consulting Physician Podiatry 04/07/17 Reji Miramontes III, DO Consulting Physician Vascular Surgery 04/07/17 Assault Amphibious Vehicle Officer Relationship Specialty Start Date End Date Neri Santa, DO [address] [place] [address] PCP - General Family Medicine 03/28/17 Pili Gilliam, MARK Consulting Physician Podiatry 04/07/17 Reji Miramontes III, DO Consulting Physician Vascular Surgery 04/07/17 Assault Amphibious Vehicle Officer Relationship Specialty Start Date End Date Neri Santa, DO [address] [place] [address] PCP - General Family Medicine 03/28/17 Pili Gilliam, DPM Consulting Physician Podiatry 04/07/17 Reji Miramontes III, DO Consulting Physician Vascular Surgery 04/07/17 Assault Amphibious Vehicle Officer Relationship Specialty Start Date End Date Neri Santa, DO [address] [place] [address] PCP - General Family Medicine 03/28/17 Pili Gilliam, DPM Consulting Physician Podiatry 04/07/17 Reji Miramontes III, DO Consulting Physician Vascular Surgery 04/07/17 Assault Amphibious Vehicle Officer Relationship Specialty Start Date End Date Neri Santa, DO [address] [place] [address] PCP - General Family Medicine 03/28/17 Pili Gilliam, DPM Consulting Physician Podiatry 04/07/17 Reji Miramontes III, DO Consulting Physician Vascular Surgery 04/07/17 Assault Amphibious Vehicle Officer Relationship Specialty Start Date End Date Neri Santa, DO [address] [place] [address] PCP - General Family Medicine 03/06/17 Skylar Hernandez MD [address] [place] [address] Ophthalmology 07/18/17 Kartik Mejia MD [address] [place] [address] [place] [address] Pain Medicine 12/25/17 Tisha Arriaga MD [address] [place] [address] Neurologist Neurology 07/18/17 Luis Miguel Kaur MD [address] [place] [address] Plywood Scarfer Tender Endocrinology, Diabetes & Metabolism 03/06/17 Chris Zavala, OD [address] [place] [address] Optometry 03/15/20 Assault Amphibious Vehicle Officer Relationship Specialty Start Date End Date Neri Santa, DO [address] [place] [address] PCP - General Family Medicine 03/06/17 Skylar Hernandez MD [address] [place] [address] Ophthalmology 07/18/17 Kartik Mejia MD [address] [place] [address] Pain Medicine 12/25/17 Tisha Arriaga MD [address] [place] [address] Neurologist Neurology 07/18/17 Luis Miguel Kaur MD [address] [place] [address] Plywood Scarfer Tender Endocrinology, Diabetes & Metabolism 03/06/17 Chris Zavala, OD [address] [place] [address] Optometry 03/15/20 Assault Amphibious Vehicle Officer Relationship Specialty Start Date End Date Neri Santa, DO [address] [place] [address] PCP - General Family Medicine 03/06/17 Skylar Hernandez MD [address] [place] [address] Ophthalmology 07/18/17 Kartik Mejia MD [address] [place] [address] Pain Medicine 12/25/17 Tisha Arriaga MD [address] [place] [address] Neurologist Neurology 07/18/17 Luis Miguel Kaur MD [address] [place] [address] Plywood Scarfer Tender Endocrinology, Diabetes & Metabolism 03/06/17 Chris Zavala, OD [address] [place] [address] Optometry 03/15/20 Assault Amphibious Vehicle Officer Relationship Specialty Start Date End Date Neri Santa DO [address] [place] [address] PCP - General Family Medicine 03/06/17 Skylar Hernandez MD [address] [place] [address] Ophthalmology 07/18/17 Kartik Mejia MD [address] [place] [id number] Pain Medicine 12/25/17 Tisha Arriaga MD [address] [place] [address] Neurologist Neurology 07/18/17 Luis Miguel Kaur MD [address] [place] [address] Plywood Scarfer Tender Endocrinology, Diabetes & Metabolism 03/06/17 Chris Zavala, OD [address] [place] [address] Optometry 03/15/20 Assault Amphibious Vehicle Officer Relationship Specialty Start Date End Date Neri Santa DO [address] [place] [address] PCP - General Family Medicine 03/06/17 Skylar Hernandez MD [address] [place] [address] Ophthalmology 07/18/17 Kartik Mejia MD [address] [place] [address] Pain Medicine 12/25/17 Tisha Arriaga MD [address] [place] [address] Neurologist Neurology 07/18/17 Luis Miguel Kaur MD [address] [place] [address] [employer] Scar[employer] Tender Endocrinology, Diabetes & Metabolism 03/06/17 Chris Zavala, OD [address] [place] [address] Optometry 03/15/20 Assault Amphibious Vehicle Officer Relationship Specialty Start Date End Date Arina, Neri Parker, [address] [place] [address] PCP - General Family Medicine 03/06/17 Skylar Hernandez MD [address] [place] [address] Ophthalmology 07/18/17 Kartik Mejia MD [address] [place] [address] Pain Medicine 12/25/17 Tisha Arriaga MD [address] [place] [address] Neurologist Neurology 07/18/17 Luis Miguel Kaur MD [address] [place] [address] Plywood Scarfer Tender Endocrinology, Diabetes & Metabolism 03/06/17 Chris Zavala, OD [address] [place] [address] Optometry 03/15/20 Assault Amphibious Vehicle Officer Relationship Specialty Start Date End Date Arina, Neri Parker, DO [address] [place] [address] PCP - General Family Medicine 03/06/17 Skylar Hernandez MD [address] [place] [address] Ophthalmology 07/18/17 Kartik Mejia MD [address] [place] [address] [place] [address] Pain Medicine 12/25/17 Tisha Arriaga MD [address] [place] [address] Neurologist Neurology 07/18/17 Luis Miguel Kaur MD [address] [place] [address] [employer] Scar[employer] Tender Endocrinology, Diabetes & Metabolism 03/06/17 Chris Zavala, OD [address] [place] [address] Optometry 03/15/20 Assault Amphibious Vehicle Officer Relationship Specialty Start Date End Date Arina, Sr Neri Parker, DO [address] [place] [facility] [place] [address] PCP - General Family Medicine 07/19/18 Assault Amphibious Vehicle Officer Relationship Specialty Start Date End Date Arina, Sr Neri Parker, DO [address] [place] [facility] [place] [address] PCP - General Family Medicine 07/19/18 Assault Amphibious Vehicle Officer Relationship Specialty Start Date End Date Arina, Sr Neri Parker, DO [address] [place] [facility] [place] [address] PCP - General Family Medicine 07/19/18 Assault Amphibious Vehicle Officer Relationship Specialty Start Date End Date Sr Neri Santa, DO [address] [facility] [place] [address] PCP - General Family Medicine 07/19/18 Team Status: Inactive Member Role Status Dates Rufus Perez II MD Attending Provider Active Assault Amphibious Vehicle Officer Relationship Specialty Start Date End Date Ganga Savage MD [address] [place] [address] PCP - General Internal Medicine 08/14/21 Assault Amphibious Vehicle Officer Relationship Specialty Start Date End Date Ganga Savage MD [address] [place] [address] PCP - General Internal Medicine 08/14/21 Assault Amphibious Vehicle Officer Relationship Specialty Start Date End Date Ganga Savage MD [address] [place] [address] PCP - General Internal Medicine 08/14/21 Assault Amphibious Vehicle Officer Relationship Specialty Start Date End Date Neri Santa MD [address] [place] [facility] [address] PCP - General Family Medicine 08/12/22 Assault Amphibious Vehicle Officer Relationship Specialty Start Date End Date Neri Santa MD [address] [place] [facility] [address] PCP - General Family Medicine 08/12/22 Assault Amphibious Vehicle Officer Relationship Specialty Start Date End Date Neri Santa MD [address] [place] [facility] [address] PCP - General Family Medicine 08/12/22 Assault Amphibious Vehicle Officer Relationship Specialty Start Date End Date Neri aSnta MD [address] [place] [address] PCP - General Family Medicine 08/12/22 Assault Amphibious Vehicle Officer Relationship Specialty Start Date End Date Neri Santa MD [address] [place] [address] PCP - General [facility] Medicine 08/12/22 Assault Amphibious Vehicle Officer Relationship Specialty Start Date End Date Neri Santa MD PCP - General Family Medicine 08/12/22 Assault Amphibious Vehicle Officer Relationship Specialty Start Date End Date Neri Santa MD PCP - General Family Medicine 08/12/22 Assault Amphibious Vehicle Officer Relationship Specialty Start Date End Date Neri Santa MD PCP - General Family Medicine 08/12/22 Assault Amphibious Vehicle Officer Relationship Specialty Start Date End Date Neri Santa MD PCP - General Family Medicine 08/12/22 Assault Amphibious Vehicle Officer Relationship Specialty Start Date End Date Neri [...] 10 mg, IntraVENous, ONCE, 1 dose, On Onhemy 06/28/21 at 0945 0946 (Given - Provid [...] dose on Fri06/30/21 at 0900, Until Discontinued 0900 (Automatically Held - Provider: REBEKA Rolon NP) 0900 (Held - Provider: Sebas Arnold RN [...] 0900, Until Discontinued, Indication of Use: Prophylaxis-DVT/PE 0900 (Automatically Held - Provider: Kam Prado APRN - CERTIFIED CYTOTECHNOLOGIST) 0900 (Held - Provider: Sebas Arnold RN [...] DAILY, First dose (after last modification) on Fri06/30/21 at 0900, Until Discontinued 0900 (Automatically Held) [...] RN) 08 (Patch Applied - Provider: Sebas Arnold, VIRGIE)2026 (Patch Removed - Provider: Maggi Quiñones RN) [...] Hernandez RN)1811 (Stopped - Provider: Camilo Hernandez, VIRGIE)2018 (New Bag - Provider: Maggi Quiñones RN)2118 [...] Arnold RN)1600 (Due - Provider: Rufus Argueta MD)2000 (Due [...] Maggi Quiñones RN - Reason: Patient/family refused) 0808 (Given - Provider: Sebas Arnold RN)202 (Not Given - Provider: Maggi Quiñones RN [...] Quiñones RN - Reason: IV Fluid Infusing) 811 (Given - Provider: Sebas Arnold RN)2027 (Not [...] Infusing) 0916 (Given - Provider: Sebas Arnold RN)2099 (Due) valproic acid (DEPAKENE) 250 MG/5ML oral solution 250 mg 250 mg, Oral, 2 times daily, First dose on Fri07/03/21 at 1515, Until Discontinued 0814 (Given - Provider: Camilo Hernandez RN)2115 (Given - Provider: Maggi Quiñones RN) 08 (Given - Provider: Sebas Arnold RN)2027 (Given - Provider: Maggi Quiñones RN) 09 (Given - Provider: Sebas Arnold RN)2100 (Due) [...] RN)1317 (See Alternative - Provider: Sebas Arnold, VIRGIE) glucagon (rDNA) injection 1 mg 1 [...] Arnold RN) 0915 (Given - Provider: Sebas Arnold, VIRGIE) [...] RN) 0522 (Given - Provider: Maggi Quiñones, VIRGIE)1533 (See Alternative - Provider: Sebas Arnold, VIRGIE) [...] 2 tablet, Oral, DAILY, First dose on Fri07/15/21 at 1245, Until Discontinued 1200 (Automatically Held) [...] (Given - Provider: Yolanda De La Fuente RN)165 (Given - Provider: Yolanda De La Fuente RN) 0821 (Given - Provider: Anna Veliz, VIRGIE)172 (Given - Provider: Anna Veliz RN) chlordiazePOXIDE (LIBRIUM) capsule 10 mg (CANCELED) 10 mg, Oral, 3 TIMES DAILY, First dose on Fri08/05/21 at 1400, Until Discontinued 0851 (Given - [...] RN) 1014 (Given - Provider: Anna Veliz RN)151 (Given - Provider: Anna Veliz RN)2199 (Due - Provider: Linn Duvall [facility]) insulin glargine (LANTUS) injection vial 10 Units (COMPLETED) 10 Units, SubCUTAneous, ONCE, 1 dose, On Fri08/08/21 at 0800 09 (Given - Provider: Alejandra Goldberg RN) insulin [...] Goldberg RN)1601 (Given - Provider: Alejandra Goldberg RN)2103 (Given - Provider: Maggi Multani RN) 0250 (Not Given - Provider: Maggi Multani RN - Reason: Order parameters not met)0812 (Given - Provider: Yolanda De La Fuente RN - Comment: bs 202)165 (Given - Provider: Yolanda De La Fuente RN)2043 (Given - Provider: Lubna Peralta, VIRGIE) 0318 (Not Given - Provider: Lubna Peralta RN - Reason: Order parameters not met - Comment: blood sugar 133mg/dl)1012 (Given - Provider: Anna Veliz RN)1517 (Given - Provider: Anna Veliz, VIRGIE)2027 (Given - Provider: Lubna Peralta RN) lactobacillus [...] Multani RN) 0251 (Given - Provider: Maggi Multani RN - [...] 2204 (Given - Provider: Lubna Peralta RN) 220 (Due - Provider: Linn Duvall [facility]) valproic acid (DEPAKENE) 250 MG/5ML oral solution 250 mg 250 mg, Per NG tube, 2 TIMES DAILY, First dose on Fri08/02/21 at 2100, Until Discontinued 0859 (Given - Provider: Alejandra Goldberg RN)2051 (Given - Provider: Maggi Multani RN) 101 (Given - Provider: Yolanda De La Fuente [...] Fuente RN)0752 (Rate/Dose Verify - Provider: Yolanda J Buchholtz, RN)1025 (New Bag - Provider: Yolanda De [...] 4) 40 mEq, Oral, PRN, Starting on 07/25/21 at 0628, Until Discontinued, Per Potassium Replacement [...] the iv AB is over - keep senior care suppression 60 tablet 11 07/09/2021 07/09/2021 Prescription [...] BE BASED ON THE PRIMARY CLINICAL RECORDS. [employer] provides no warranty or guarantee of the accuracy or completeness of information in this document.
== END 2024-11-30 13:41 | disposition home or self-care (01) ==
LOC: WC 13:40
PROVIDERS: PCP Family Medicine; Visit Provider Physician Assistant
DX: E11.621 Type 2 diabetes mellitus with foot ulcer (principal); L97.521 Non-pressure chronic ulcer of other part of left foot limited to breakdown of skin; L97.422 Non-pressure chronic 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
CPT/HCPCS: 11043

== ENCOUNTER 2024-12-21 09:46 | Outpatient (OUT) | payer MEDICARE, OTHER, MEDICAID, SELFPAY ==
--- OUTSIDE RECORDS SUMMARY | 2024-12-21 09:49 | XMS_ITS | Clinical Summary ---
Author Organization [facility] Address [address] [place], [place] [address] Care Team Providers Care Laborer/Grade Check Name Role Phone BasiliaTobias Lars PALACIOS Primary Care Provider [phone] Allergies Active AllergyReactionsCriticalityNoted DateCommentsMoxifloxacinRash,Swelling, Eryampa9303/23/2015CephalexinHives,Swelling,Hicxifo4203/23/2015TapentadolMental Status Ceknhb0210/31/2015 Medications MedicationSigDispense QuantityRefillsLast FilledStart DateEnd DateStatus metFORMIN (GLUCOPHAGE) 1,000 mg tablet Take 1,000 mg by mouth twice daily with meals.Active HYDROcodone-acetaminophen (NORCO) 5-325 mg per tablet Take 1 tablet by mouth every 6 hours as needed.Active levothyroxine (SYNTHROID) 112 mcg tablet Take 112 mcg by mouth daily before breakfast.Active metoprolol tartrate, short acting, (LOPRESSOR) 100 mg tablet Take 100 mg by mouth twice daily.Active INSULIN ZINC HUMAN RECOMBINANT (HUMULIN L SUBCUTANE.) Inject 25 Units subcutaneously twice daily.Active Social History Tobacco UseTypesPacks/DayYears UsedDateSmoking Tobacco: FormerSmokeless Tobacco: NeverAlcohol UseStandard Drinks/WeekCommentsNot Asked0 (1 standard drink = 0.6 oz pure alcohol)CommentsUnknownSex and Gender InformationValueDate RecordedSex Assigned at BirthNot on fileLegal NttWlrybh96/28/2015 9:26 AM EST Gender IdentityNot on fileSexual OrientationNot on file Last Filed Vital Signs Vital SignReadingTime TakenCommentsBlood Dnsaoljj276/6909 3:09 PM EDT Vwlnp7925 3:09 PM EDTTemperature--Respiratory Vwdk270705/02/2015 3:50 PM EDTOxygen Saturation--Inhaled Oxygen Concentration--Weight--Rkwbyv527.1 cm (5' 5 )03/23/2015 12:42 PM ESTBody Mass Index-- Plan of Treatment Health MaintenanceDue DateLast DoneCommentsAnxiety Wdcsyuxck61/21/1981Depression Clpyvxkrf12/21/1981HIV Pqtdabica35/21/1981Hepatitis C Ihmdxsotm95/21/1981 DTaP,Tdap,Td Vaccine (1 - Tdap)1982Cervical Cancer Qkmjidwub61/21/1984 Mammogram Xbzirndwc98/21/2003CT Ackmhnhlxnbl12/21/2008Cologuard (FIT-DNA) 02/07/20080475Ycderigqxai05/21/2008Colorectal Cancer Lxwplvgwd07/21/2008Fecal Occult Blood02/07/2008Lipid Jhlfphqin86/21/3262Begbiggowmqsr71/21/2008Pneumococcal Vaccine: 50+ (1 of 1 - PCV)2013Shingrix Vaccine (1 of 2)2013Diabetes Yapycvgci86/04/, 03/23/2015Covid-19 Vaccine (1 - 2024- season) 2024Influenza Vaccine (#1)2024RSV Vaccine (1 - 1-dose 75+ series) 2038 Procedures Procedure NamePriorityDate/TimeAssociated DiagnosisCommentsHEMOGLOBIN T1BQfloljl 03/23/2015 2:21 PM EST 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 HgbA1c greater or equal to 6.5% is considered diagnostic of diabetes. Estimated Average Glucose>240mg/dL03/23/2015 10:11 PM ESTSALEM CITY HOSPITAL MAIN LABORATORYComment: eAG: (Estimated average glucose) is a calculated value from HgbA1c and is strategic partnership representative of the average blood glucose level in the last 2-3 month period. Specimen (Source)Anatomical Location / LateralityCollection Method / Volume Collection TimeReceived TimeBlood specimen (specimen)WHOLE BLOOD SPECIMEN / Ntpvsro6803/23/2015 2:21 PM EST03/23/2015 2:26 PM EST Narrative Authorizing ProviderResult TypeResult StatusPayam SoltanzadehLABORATORYFinal ResultPerforming OrganizationAddressCity/State/ZIP CodePhone Number [facility] [address] [place] [address] from Last 3 Months or Most Recently Relevant to Health Maintenance Insurance Care Teams Team MemberRelationshipSpecialtyStart DateEnd Date Tobias Cui DO PCP - GeneralFamily Aaumglcs29/28/15
--- OUTSIDE RECORDS SUMMARY | 2024-12-21 09:50 | XMS_ITS | Encounter Summary ---
Author Organization [facility] Address [address] [place] [address] Care Team Providers Care Fios Line Installer Name Role Phone Aamir Purcell MD Primary Care Provider [phone] Reason for Visit * ReasonOnset DateCommentsMed Gctspc6012/13/2024 Encounter Details DateTypeDepartmentCare Team (Latest Contact Info)Bwfwpivfozr21/27/2025[facility] [address] [place] [address] Jany Becerra MA Cough, unspecified type Social History Tobacco UseTypesPacks/DayYears UsedDateSmoking Tobacco: Never Assessed CommentsUnknownSex and Gender InformationValueDate RecordedSex Assigned at Not on fileLegal HioXgsjid05/15/2023 6:48 PM EDTGender IdentityNot on fileSexual OrientationNot on filedocumented as of this encounter Miscellaneous Notes * Telephone Encounter - Jany Becerra MA - 12/13/2024 9:04 AM EDT Hi, my name is Alaina. I am calling from [facility]. Assisted living calling on [address]. By s date of is 1220 1964 changes new prescriptions for her [employer] 600 mg. She takes 1 tab 2 times a day for synth ROID 100 microgra gram. She takes 1 tab In the morning, her a maple 40 mg, shetakes 1 capsule in the morning and her vitamin 400 units. She takes 1 tab in the morning and also her vitamin D 100 units. She takes 1 tab once a day and she use the [facility]. If you have any questions, you can give me a Call at [phone]. Thank you, bimal. Omeprazole ,levothyro vitamin d 400 units daily and vitamin 100 units daily she stated she was on synthroid 100 mcg , this is not on her list documented in this encounter Plan of Treatment DateTypeDepartmentCare Team (Latest Contact Info)Wrjtbrdjkpf60/10/2025 1:45 PM ESTOffice Visit [facility] [address] [place] [id number] Adilson Johnson DO [address] [place] [address] documented as of this encounter Visit Diagnoses Diagnosis Cough, unspecified type documented in this encounter Care Teams Team MemberRelationshipSpecialtyStart DateEnd Date Aamir Purcell MD [address] [place] [address]. [place] [address] PCP - GeneralFamily Medicine08/12/22documented as of this encounter
--- OUTSIDE RECORDS SUMMARY | 2024-12-21 09:50 | XMS_ITS | Clinical Summary ---
Author Organization [facility] Address [address] [place] [address] Care Team Providers Care District Resource Officer Name Role Phone Aamir Purcell DO Primary Care Provider [phone] Adilson Hernandez MD Unavailable Kartik Mejia MD Unavailable [phone] Tisha Arriaga MD Unavailable Luis Miguel Kaur MD Unavailable [phone] Chris Zavala OD Unavailable Unavailable Allergies Active AllergyReactionsCriticalityNoted DateCommentsMoxifloxacinRashHigh 10/28/20166106AviegkqcqiNiseinuTuko86/11/2017 burning MnemsybrdmIvlt91/11/2017 Passed out Medications MedicationSigDispense QuantityRefillsLast FilledStart DateEnd DateStatus Multiple Vitamin (MULTI-DAY PO) take 1 tablet by mouth daily..Active Alpha-Lipoic Acid 300 MG Tab Take 1 tablet by mouth 2 times daily. 60 tablet Active Cholecalciferol (VITAMIN D3) 5000 units Cap Indications:MGUS (monoclonal gammopathy of unknown significance),Type 2 diabetes mellitus with diabetic polyneuropathy, without long-term current use of insulin, Acquired hypothyroidism,Essential hypertension, benignTake 1 capsule by mouth daily. 100 capsule Active immune globulin, human, 20 GM/200ML Solution 400 mg/kg by Intravenous route As directed PRN.Active immune globulin, human, 20 GM/200ML 15 g by Intravenous route every 14 days. 15 gramsActive dorzolamide-timolol 22.3-6.8 MG/ML Solution ophthalmic solution Place 1 drop in both eyes 2 times daily. 10 mL 01/15/2021ctive Continuous Blood Gluc Sensor (FreeStyle Juanpablo 14 Day Sensor) Misc Inject 2 Each under the skin every 14 days. 2 Each ctive levothyroxine 50 MCG tablet Take 1 tablet by mouth daily. 90 tablet ctive Insulin Lispro, 1 Unit Dial, 100 UNIT/ML Solution Pen-injector Indications:Type 1 diabetes mellitus with diabetic neuropathyUse less than 30 units daily with sliding scale. 15 mL ctive Insulin Degludec (Tresiba FlexTouch) 100 UNIT/ML Solution Pen-injector injection Indications:Type 1 diabetes mellitus with diabetic neuropathyInject 25 Units under the skin at bedtime. 900 mL ctive ezetimibe (Zetia) 10 MG tablet Take 1 tablet by mouth daily. 30 tablet ctive Netarsudil Dimesylate (Rhopressa) 0.02 % Solution Indications:Primary open angle glaucoma (POAG) of right eye, severe stage, Primary open angle glaucoma (POAG) of left eye, severe stagePlace 1 drop in both eyes at bedtime. 5 mL 05/15/2021ctive Netarsudil Dimesylate (Rhopressa) 0.02 % Solution Apply 1 drop to eye at bedtime. 2.5 mL 05/15/2021ctive Active Problems ProblemNoted DateDiagnosed DateChronic zjvitkxi00/10/2021Internal derangement of right knee09/26/2020rimary open angle glaucoma (POAG) of right eye, severe stage04/20/2020 Overview (04/20/2020): Added automatically from request for surgery Primary open angle glaucoma (POAG) of left eye, severe stage12/31/2019 Overview (12/31/2019): Added automatically from request for surgery [id number] Fhxqmgzlxuoup94/06/2020Nuclear sclerotic cataract of left eye12/16/2018 Overview (12/16/2018): Added automatically from request for surgery [id number] CIDP (chronic inflammatory demyelinating polyneuropathy)06/24/2018Vitamin D ekitynrzlr42/31/2019DDD (degenerative disc disease), htanssmo40/31/2019 Osteoarthritis cervical spine03/19/2018Postmenopausal eaoccl6603/19/2018Osteopenia determined by x-ray03/19/2018Primary osteoarthritis of left wrist03/19/2018 Primary osteoarthritis of right wrist03/19/2018Primary osteoarthritis of both knees03/19/2018Primary osteoarthritis of both hips03/19/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 03/19/2018Neuropathy of hand02/16/20183471Krporzg31/06/2018Disorder of bone and epqzdopqf35/06/2018History of Raynaud's oodmxhwk66/06/2018Bilateral hand pain 01/22/2018Chronic pain of both knees01/22/2018Long term current use of non- steroidal anti-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 (NSAID)01/22/2018Alkaline phosphatase elevation 01/22/20184075Rjguov07/06/5985Ffxwfxkdmzo49/06/2018Chronic pain of both shoulders 01/22/2018Bilateral biceps gfvouoqskj14/06/2018Tendonitis of both rotator cuffs 01/22/2018Bilateral wrist pain01/22/2018Osteoarthritis of both hands01/22/2018 Hip pain, right01/22/2018Mixed dhpicvbjsglluq10/30/2018Diabetes mellitus 10/16/2017Chest pain10/09/2017 Assessment & Plan (10/10/2017 11:24 AM EDT): Seen by cardiology ACS ruled out - Enzymes <0.02 x4 sets Continue medical management Follow-up with cardiology as outpatient Vaakptrh62/21/2018MGUS (monoclonal gammopathy of unknown significance)03/16/2017 Assessment & Plan (10/10/2017 11:26 AM EDT): Per history - Follow up with hematology/oncology as outpatient 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 involvement without evidenceof zrviqpjw43/26/2018Fracture of third toe, left, qiziwt8902/15/2016Closed displaced fracture of first metatarsal bone of left foot with routine yrxiedo2504/17/20150588Ycpmiubwizpa31/05/2014Coronary atherosclerosis 06/24/2012Diaphragmatic eyisbr9306/24/2012Gastroesophageal reflux disease 06/24/20120303Aodizmux86/08/2591Wduvuiskuspnot30/08/2013Irritable bowel syndrome 06/24/2012sthma Assessment & Plan (10/10/2017 11:25 AM EDT): Stable without exacerbation 02 per protocol, IS Routine aerosols Type 2 diabetes mellitus with diabetic polyneuropathy, [...] Follow-up with PCP after discharge Resolved Problems ProblemNoted DateDiagnosed DateResolved DateKnee injury, left, initial encounter Knee injury, right, initial yujzaedtn47 Immunizations ImmunizationAdministration DatesNext DueInfluenza Yztatxo2011/04/2013Influenza Vaccine 0.5ml10/07/2019Influenza Vaccine, Wcykaanyq68/18/2014Pneumococcal Polysac 23-Valent Gkxbove2507/29/2012Pneumococcal Vaccine, Qnxhoxbpmul55/20/2020 Zoster Vaccine, Live11/04/2013 Family History Medical HistoryRelationNameCommentsCancer- OtherFatherDiabetesFatherDiabetes MotherHeart Disease - OtherMotherHypertensionMotherStrokeMotherBreast Cancer OtherCancer- OtherOtherDiabetesOtherHeart Disease - OtherOtherHypertensionOther StrokeOtherBlindnessNeg HxGlaucomaNeg HxRelationNameStatusCommentsFatherDeceased MotherDeceasedOther Social History Tobacco UseTypesPacks/DayYears UsedDateSmoking Tobacco: FormerCigarettesQuit: 1997Smokeless Tobacco: Never Tobacco Cessation:Counseling Given: No Alcohol UseStandard Drinks/WeekCommentsNo0 (1 standard drink = 0.6 oz pure alcohol)CommentsNoSex and Gender InformationValueDate RecordedSex Assigned at BirthNot on fileLegal DtpHvnsus79/04/2015 3:05 PM ESTGender Identity Dpufrm9210/15/2016 6:49 AM EDTSexual OrientationNot on file Last Filed Vital Signs Vital SignReadingTime TakenCommentsBlood Zqenqpze520/6303 3:31 PM EDT Rbmvu7182 3:31 PM PWFJzgfeetcxxx64.2 ??C (97.2 ??F)05/11/2021 1:31 PM EDTRespiratory Mygg1863 3:31 PM EDTOxygen Apocscduap21%01/18/2021 8:57 AM ESTInhaled Oxygen Concentration--Eibbrb62.3 kg (155 lb)05/08/2021 1:53 PM EDT Ueydxx289.4 cm (5' 5.5 )05/08/2021 1:53 PM EDTBody Mass Index25.403 1:53 PM EDT Plan of Treatment Health MaintenanceDue DateLast DoneCommentsDIABETIC FOOT EXAM1963TETANUS 1963HIV SCREENING YEBBAKFZLA41/21/1978TDAP (ADULT)1982CERVICAL CANCER SCREENING KLLUXNWNKJ74/21/1984COLORECTAL CANCER SCREENING DISCUSSION 02/07/2008ZOSTER (SHINGLES) VACCINE (2 of 3)12/30/201309/MAMMOGRAM SCREENING YVGZPTVIBJ60EYE EXAM/05/2017PNEUMOCOCCAL VACCINE SERIES (2 of 2 - PCV)/, 07/29/2012HBA1C TEST /03/2021, 03/15/2021, 09/01/2020, Additional history existsLIPIDS /, 09/01/2020, 05/15/2020, Additional history existsURINE MICROALBUMIN TEST/, 09/01/2020, 05/15/2020, Additional history existsCOVID-19 VACCINE ( - 2024- season)2024INFLUENZA VACCINE (#1), 11/04/2013, 11/04/2013RSV VACCINE (1 - 1-dose 75+ series)2038HEPATITIS C VIRUS EEVHXWICEImxbynzle24/06/2018, 03/06/2017 PNEUMOCOCCAL VACCINE JJPFBVJuyihlfeqyuv81/20/2020, 07/29/2012POTASSIUM Eesayarwapih85/27/2022, 01/13/2021, 09/01/2020, Additional history existsTSH Ofimldkwbhtt19/27/2022, 09/01/2020, 03/13/2020, Additional history existsHEP B VACCINEAged OutNo longer eligible based on patient's age to complete this topic Medical Devices ImplantedTypeAreaManufacturerDevice IdentifierShelf Expiration DateModel / Serial / LotLens Au00t0 D 23.5 - [id number] Implanted:Qty: 1 on 12/23/2018 by Grace Washington MD at [facility] REV LOCLeft: EyeALCON [id number]/31/[id number] D 23.5 / [id number] / Implant Opth 250sq Mm Jo 1 Qdrnt Ins Fx Sut Hl Rcs Knt Cpb - [id number] Implanted:Qty: 1 on 02/23/2020 by Grace Washington MD at [facility] REV LOCLeft: [employer] (IMANI)[id number] / [id number] / Osc Tissue Cornea Padmini [id number] Implanted:Qty: 1 on 02/23/2020 by Grace Washington MD at [facility] REV LOCLeft: [facility] EYE BANK [facility] [place]08/16/2020GLYCERIN / / [id number] Procedures Procedure NamePriorityDate/TimeAssociated DiagnosisCommentsHC CREATININE NOT MGELKXbiluws68/27/2022 10:50 AM EST Type 1 diabetes mellitus with diabetic neuropathy HEMOGLOBIN R6NHsblici21/27/2022 8:58 AM EST Type 1 diabetes mellitus with diabetic neuropathy TSH W/FT4 ZRMCSUNvgnexw56/27/2022 8:58 AM EST Type 1 diabetes mellitus with diabetic neuropathy Acquired hypothyroidism COMPREHENSIVE METABOLIC OBYTPFltrvoj22/27/2022 8:58 AM EST Type 1 diabetes mellitus with diabetic neuropathy LIPID PANEL W CALCULATED ZMNIkipalb11/27/2022 8:58 AM EST Type 1 diabetes mellitus with diabetic neuropathy HEPATITIS A, B, RXprskgz56/06/2018 4:29 PM EST Cervicalgia Disorder of bone and [...] Fatigue, unspecified type History of Raynaud's syndrome USP current use of non-steroidal anti-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 (NSAID) Alkaline phosphatase elevation Type 1 diabetes mellitus with diabetic neuropathy DIABETIC EYE EXAM (OUTSIDE)Krzdhlu2506/20/2017MAMMO SCREENING BILATERALRoutine 04/04/2017 12:46 PM EST Screening mammogram, encounter for from Last 3 Months or Most Recently Relevant to Health Maintenance Results * (ABNORMAL) MICROALBUMIN/CREATININE RATIO (03/15/2021 10:50 AM EST)Component ValueRef RangeTest MethodAnalysis TimePerformed AtPathologist Signature CREATININE, MG/DL, UWJWM665.5MG/DL[address]ETIONComment:NO NORMAL VALUES ESTABLISHED FOR RANDOM SPECIMENS Microalbumin, Urine, Qsadth636.1(H)0 - 16.7 mg/LG[address]MICROALBUMIN/CREATININE FWDEE296.2(H)1.3 - 30.0 mg MALB/g [address]Comment: Testing performed at [place], [place] [address]Imcjovlq (Source)Anatomical Location / LateralityCollection Method / VolumeCollection TimeReceived Time03/15/2021 10:50 AM EST03/15/2021 11:00 AM EST Narrative Authorizing ProviderResult TypeResult StatusLuis Miguel Kaur MDBODY FLUIDS & STOOLS ORDERABLESFinal ResultPerforming OrganizationAddressCity/State/ZIP Code Phone Number [place] [phone] * (ABNORMAL) TSH W/FT4 REFLEX (03/15/2021 8:58 AM EST)ComponentValueRef Range Test MethodAnalysis TimePerformed AtPathologist SignatureTSH, Reflex FT47.180 (H)0.46 - 4.68 uIU/ML[address] Comment:Testing performed at [place], [place] [address] Specimen (Source)Anatomical Location / LateralityCollection Method / Volume Collection TimeReceived BgbgDraco37/27/2022 8:58 AM EST03/15/2021 9:00 AM EST Narrative Authorizing ProviderResult TypeResult StatusLuis Miguel Kaur MDENDOCRINOLOGYFinal ResultPerforming OrganizationAddressCity/State/ZIP CodePhone Number [place] [phone] * (ABNORMAL) HEMOGLOBIN A1C (03/15/2021 8:58 AM EST)ComponentValueRef RangeTest MethodAnalysis TimePerformed AtPathologist SignatureHEMOGLOBIN A1C11.7(H)0 - 6 %[facility] - [address] - [place] Comment: NORMAL <5.7% PREDIABETES 5.7-6.4% DIABETES 6.5% OR HIGHER Estimated Average Qebtghe346ns/dLBUCCLERMONT COUNTY HOSPITAL - [address] - [facility] (Source)Anatomical Location / Laterality Collection Method / VolumeCollection TimeReceived LhwrBmxpm88/27/2022 8:58 AM EST03/15/2021 9:00 AM EST Narrative Authorizing ProviderResult TypeResult StatusTojudah Kaur MDHEMATOLOGY ORDERABLESFinal ResultPerforming OrganizationAddressCity/State/ZIP CodePhone Number [facility] - [address] [place] [address] [place] [address] * (ABNORMAL) LIPID PANEL W CALCULATED LDL (03/15/2021 8:58 AM EST)ComponentValue Ref RangeTest MethodAnalysis TimePerformed AtPathologist SignatureCHOLESTEROL 226(H)107 - 217 MG/DL[address] FGYDHZCWCJCE103(H)0 - 150 MG/DL51 [address]ETHDL WCZVZZUYTKU7442 - 75 MG/DL[address]LDL CHOLESTEROL, LIJMVWSXPO065TD/DL51 [address]ETVLDL Cholesterol, Xrfkkqhkxc25(H)5.0 - 25 MG/DL [address]TCHOL/HDL RATIO, MANUAL ENTER4.71RATI[address]Comment: RISK ?TOTAL/HDL RATIO ?MEN ? WOMEN 1/2 AVERAGE ?3.43 ?3.27 AVERAGE ?4.97 ?4.44 2X AVERAGE ? 9.55 ?7.05 3X AVERAGE ?23.99 ? 11.04 Testing performed at [place], [place] [address] Specimen (Source)Anatomical Location / LateralityCollection Method / Volume Collection TimeReceived YmvuZwaji22/27/2022 8:58 AM EST03/15/2021 9:00 AM EST Narrative Authorizing ProviderResult TypeResult StatusTodd M Natasha MDCHEMISTRY ORDERABLESFinal ResultPerforming OrganizationAddressCity/State/ZIP CodePhone Number [address] [address] * (ABNORMAL) COMPREHENSIVE METABOLIC PANEL (03/15/2021 8:58 AM EST)Component ValueRef RangeTest MethodAnalysis TimePerformed AtPathologist SignatureGlucose 222(H)70 - 100 MG/DL[address] Comment: NORMAL <100 mg/dL PREDIABETES 101-126 mg/dL DIABETES 126 mg/dL or higher BUN26(H)7 - 20 MG/DL[address] CREATININE SERUM1.200.7 - 1.2 MG/DL[address]ETODIUM139137 - 145 MMOL/[address]Potassium4.53.5 - 5.1 MMOL/[address]CHLORIDE10598 - 107 MMOL/[address]Comment:Please note: Triglyceride levels of 600mg/dL or higher may positively bias chloride results by approximately 2.1 mmolCALCIUM9.68.4 - 10.2 MG/DL51 [address]PROTEIN, TOTAL7.36.3 - 8.2 GM/DL[address] Streetbumin3.93.5 - 5.0 G/dl51 [address]ETBILIRUBIN, TOTAL0.40.2 - 1.3 MG/DL[address] IIJ3330 - 36 IU/[address]KALINE DHDVTXVNAYJ69804 - 126 IU/[address]CARBON DIOXIDE (CO2)2422 - 30 MMOL/[address]A/G Ratio1.1(L)1.3 - 2.[address]T14<35 IU/LG[address]STIMATED GFR, NON VWGW39gt/min/1.73sq.[address] StreetSTIMATED GFR, ANRKXHCH45 ml/min/1.73sq.[address]GFR COMMENTAverage GFR for 50-59 years old = 93.[address]Comment: Chronic Kidney disease, GFR = <60. Kidney failure, GFR = <15. The GFR estimate is not adjusted for extreme body surface area or acute process, nor has it been validated for women or ethnic groups other than and . Testing performed at [place], [place] [address] Specimen (Source)Anatomical Location / LateralityCollection Method / Volume Collection TimeReceived FvgtWcekf87/27/2022 8:58 AM EST03/15/2021 9:00 AM EST Narrative Authorizing ProviderResult TypeResult StatusTodd M Darmody MDCHEMISTRY ORDERABLESFinal ResultPerforming OrganizationAddressCity/State/ZIP CodePhone Number [address] [address] * HEPATITIS A, B, C (01/22/2018 4:29 PM EST)ComponentValueRef RangeTest Method Analysis TimePerformed AtPathologist SignatureHep A AB (IGG + IGM)Negative NegativeQUESTHep B Surf AGNegativeNegativeQUESTHepatitis B Core Total Ab NegativeNegativeQUESTHep B Surf ABNon ReactiveQUESTComment: (NOTE) ? Non Reactive: Inconsistent with immunity, ? less than 10 mIU/mL ? Reactive: ? Consistent with immunity, ? greater than 9.9 mIU/mL HEP C AB<0.10.0 - 0.9 s/co ratioQUESTComment: (NOTE) Negative: < 0.8 ?Indeterminate: 0.8 - 0.9 Positive: > 0.9 The CDC recommends that a positive HCV antibody result be followed up with a HCV Nucleic Acid Amplification test (244856). PERFORMED AT [facility] Specimen (Source)Anatomical Location / LateralityCollection Method / Volume Collection TimeReceived Time01/22/2018 4:29 PM EST01/22/2018 4:33 PM EST Narrative Authorizing ProviderResult TypeResult StatusDavid Tawana Agee Jr., DOIMMUNOLOGY ORDERABLESFinal ResultPerforming OrganizationAddressCity/State/ZIP CodePhone Number [facility] * DIABETIC EYE EXAM (OUTSIDE) (06/20/2017) Narrative Authorizing ProviderResult TypeResult StatusHistorical ProviderPR - ENDOCRINE SYSTEM SERVICESFinal Result * MAMMO SCREENING BILATERAL (04/04/2017 12:46 PM EST)Anatomical RegionLaterality ModalitybreastBilateralMammographySpecimen (Source)Anatomical Location / LateralityCollection Method / VolumeCollection TimeReceived Time04/04/2017 12:30 PM EST Impressions 04/04/2017 12:30 PM EST [...] are present. Early vascular calcifications are noted. Authorizing ProviderResult TypeResult StatusSelf-Referred Mammography-Hardy Moreno MDBREAST IMAGINGFinal Result from Last 3 Months or Most Recently Relevant to Health Maintenance Insurance * Guarantor: Rose Georges TypeRelation to PatientDate of BirthPhoneBiljackson general hospital Address[facility]WqmcguTzvw1965 [address] [place] [address] * Guarantor: Rose Georges TypeRelation to PatientDate of [facility]/YhyzqsHmig1965 [address] [place] [address] Advance Directives For more information, please contact: [phone] (7:30 AM - 6PM [facility], Friday-Friday) * Full Code (Latest Code Status on File) Date ActivatedDate [facility]10/09/2017 4:19 PM Care Teams Team MemberRelationshipSpecialtyStart DateEnd Date Aamir Purcell DO PCP - GeneralFamily Medicine03/06/17 Adilson Hernandez MD [address] [place] [address] Ophthalmology07/18/17 Kartik Mejia MD [address] [place] [address] Pain Jyvqaube45/8/18 Tisha Arriaga MD [address] [place] [address] NeurologistNeurology07/18/17 Luis Miguel Kaur MD [address] [place] [address] EndocrinologistEndocrinology, Diabetes & Metabolism03/06/17 Chris Zavala, OD [address] [place] [address] Optometry03/15/20
--- OUTSIDE RECORDS SUMMARY | 2024-12-21 09:50 | XMS_ITS | Encounter Summary ---
Author Organization [facility] Address [address] [place] [address] Care Team Providers Care Rn Radiation Name Role Phone Aamir Purcell MD Primary Care Provider [phone] Encounter Details DateTypeDepartmentCare Team (Latest Contact Info)Mvoxcccxvns25/21/2025Telephone [facility] [address] [place] [address] Maine Interiano, CLINICAL DOCUMENT IMPROVEMENT EDUCATOR [address] [place], [place] [id number] Social History Tobacco UseTypesPacks/DayYears UsedDateSmoking Tobacco: Never Assessed CommentsUnknownSex and Gender InformationValueDate RecordedSex Assigned at Not on fileLegal YyvQtsyao56/15/2023 6:48 PM EDTGender IdentityNot on fileSexual OrientationNot on filedocumented as of this encounter Miscellaneous Notes * Telephone Encounter - Maine Interiano NP - 12/07/2024 11:53 AM EDT Requested Prescriptions Signed Prescriptions Disp Refills DULoxetine (Cymbalta) [address] capsule 30 capsule 11 Sig: Take 1 capsule (60 mg) by mouth Daily Authorizing Provider: MAINE INTERIANO calcium carbonate (Tums Ultra) 1000 MG chewable tablet 30 tablet 11 Sig: Chew 1 tablet (1,000 mg) at bedtime Authorizing Provider: MAINE INTERIANO documented in this encounter Plan of Treatment DateTypeDepartmentCare Team (Latest Contact Info)Mdlncejjkkx63/10/2025 1:45 PM ESTOffice Visit [facility] [address] [place] [address] Adilson Johnson DO [address] [place] [address] documented as of this encounter Visit Diagnoses Diagnosis Hypocalcemia- Primary Current mild episode of major depressive disorder, unspecified whether recurrent documented in this encounter Care Teams Team MemberRelationshipSpecialtyStart DateEnd Date House, Aamir Parker MD [address] [place] [address] PCP - GeneralFamily Medicine08/12/22documented as of this encounter
--- OUTSIDE RECORDS SUMMARY | 2024-12-21 09:50 | XMS_ITS | Clinical Summary ---
Author Organization [facility] Address [address] [place] [address] Care Team Providers Care Cnmt Name Role Phone Aamir Purcell DO Primary Care Provider [phone] Social History Tobacco UseTypesPacks/DayYears UsedDateSmoking Tobacco: Never AssessedUT Safety & EnvironmentAnswerDate RecordedFear of Current or Ex-PartnerNot on file 04/10/2023Emotionally AbusedNot on file04/10/2023hysically AbusedNot on file 04/10/2023Sexually AbusedNot on file4Physically or Sexually AbusedNot on file04/10/2023CommentsUnknownSex and Gender InformationValueDate RecordedSex Assigned at BirthNot on fileLegal GysWmqwyd93/29/2022 10:27 PM EDT Gender IdentityNot on fileSexual OrientationNot on file Last Filed Vital Signs Vital SignReadingTime TakenCommentsBlood Qznfhryd468/7307 2:28 PM EDT Pulse--Nsealqynvlv89.1 ??C (98.7 ??F)08/26/2018 2:24 PM EDTRespiratory Rate-- Oxygen Saturation--Inhaled Oxygen Concentration--Rlqnzj76.9 kg (152 lb) 08/26/2018 2:24 PM DYUUvmjff975.1 cm (5' 5 )08/26/2018 2:24 PM EDTBody Mass Index25.2907 2:24 PM EDT Plan of Treatment Health MaintenanceDue DateLast DoneCommentsCT Faqadwypsqde1963Colonoscopy 1963Colorectal Cancer Zdttbsvrr1963FIT-DNA1963FIT1963 FOBT1963Medicare Annual Wellness (AWV)1965 9517Achvrfpeynsxi1963 Diabetes: Retinopathy Rurqwgjbm77/21/1973Depression Ykmadkcse17/21/1975Diabetes: Urine Protein Amjqkczsg85/21/1982Pap Smear02/07/1984Adult Bgygtoy3402/06/1985 Cervical Cancer Xdkjuevxh45/21/1993HPV/Hwmzef6002/06/19934705Ytntlxhwg83/21/2003Zoster Vaccines (1 of 2)Diabetes: Hemoglobin A1C10/11/2018 07/11/2018COVID-19 Vaccine ( season)2024Influenza Vaccine (#1) Pneumococcal Vaccine: Pediatrics (0 to 5 Years) and At-Risk Patients (6 to 64 Years)Aged Out07/29/2012No longer eligible based on patient's age to complete this topicHIB VaccinesAged OutNo longer eligible based on patient's age to complete this topicHPV VaccinesAged OutNo longer eligible based on patient's age to complete this topicIPV VaccinesAged OutNo longer eligible based on patient's age to complete this topicMeningococcal B VaccineAged OutNo longer eligible based on patient's age to complete this topicMeningococcal VaccineAged OutNo longer eligible based on patient's age to complete this topic Rotavirus VaccinesAged OutNo longer eligible based on patient's age to complete this topic Procedures Procedure NamePriorityDate/TimeAssociated DiagnosisCommentsHEMOGLOBIN I9CDyrkz 07/11/2018 6:08 AM EDT from Last 3 Months or Most Recently Relevant to Health Maintenance Results * (ABNORMAL) Hemoglobin A1C (07/11/2018 6:08 AM EDT)ComponentValueRef RangeTest MethodAnalysis TimePerformed AtPathologist SignatureHemoglobin A1C8.9(H)4.0 - 6.0 %LAB CONVERSIONSEstimated Average Jskpldi209(H)70 - 126 mg/dLLAB CONVERSIONSSpecimen (Source)Anatomical Location / LateralityCollection Method / VolumeCollection TimeReceived Time07/11/2018 6:08 AM EDT07/11/2018 10:48 PM EDT Narrative LAB CONVERSIONS - 07/12/2018 11:13 AM EDT Yes: Add to Previous draw if able Authorizing ProviderResult TypeResult StatusMeaghan TranovichLAB BLOOD ORDERABLESFinal ResultPerforming OrganizationAddressCity/State/ZIP CodePhone Number LAB CONVERSIONS from Last 3 Months or Most Recently Relevant to Health Maintenance Insurance Care Teams Team MemberRelationshipSpecialtyStart DateEnd Aamir Navarrete DO [address] [place] [address] [facility]10/19/21
--- OUTSIDE RECORDS SUMMARY | 2024-12-21 09:50 | XMS_ITS | Clinical Summary ---
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 Per sliding scale Active levothyroxine (SYNTHROID, LEVOTHROID) 50 mcg tablet Take 50 mcg by mouth 1 (one) time each day before breakfast.Active ezetimibe (ZETIA) 10 mg tablet Take 10 mg by mouth 1 (one) time each day.Active dorzolamide-timoloL (COSOPT) 22.3-6.8 mg/mL ophthalmic solution Administer 1 drop into both eyes 2 (two) times a day.Active netarsudiL (Rhopressa) 0.02 % drops Administer 1 drop into both eyes at bedtime.Active insulin degludec (Tresiba FlexTouch U-100) 100 unit/mL (3 mL) injection pen Inject 25 Units under the skin at bedtime.Active cholecalciferol (VITAMIN D-3) 50 mcg (2,000 unit) tablet Take 2,000 Units by mouth 1 (one) time each day.Active cyanocobalamin (VITAMIN B-12) 1,000 mcg tablet Take 1,000 mcg by mouth 1 (one) time each day.Active alpha lipoic acid 300 mg capsule Take 300 mg by mouth 2 (two) times a day if needed (pain).Active Active Problems ProblemNoted DateDiagnosed KritBrjvdsgjvenmmb19/18/1650Fuhtqawjf10/18/2022Chest pain of unknown qgvwevxo93/17/2022 Medical History Medical HistoryDateCommentsDiabetes mellitus (CMS/HCC V24, CMS/HCC V28) Social History Tobacco UseTypesPacks/DayYears UsedDateSmoking Tobacco: NeverSmokeless Tobacco: NeverAlcohol UseStandard Drinks/WeekCommentsNot Currently0 (1 standard drink = 0.6 oz pure alcohol)Housing InstabilityAnswerDate RecordedAre you worried that in the next 2 months you may not have stable housing?No04/05/2021Food Access & NutritionAnswerDate RecordedDo you have access to a variety of food including fruits and vegetables?No04/05/2021ccess to HealthcareAnswerDate RecordedWithin the last 3 months, how many times did you visit the emergency department for your medical care?Health LiteracyAnswerDate RecordedHow often do you need to have someone help you when you read instructions, pamphlets, or other written material from your doctor or pharmacy?Never04/05/2021aregiver: How often do you need to have someone help you when you read instructions, pamphlets, orother written material from your doctor or pharmacy?Not on file 04/05/2021Financial RiskAnswerDate RecordedHow hard is it for you to pay for the very basics like food, housing, medical care, and air conditioning / heating?Not very hard04/05/2021TransportationAnswerDate RecordedHas the lack of transportation kept you from meetings, work, or from getting things needed for daily living?No04/05/2021Has the lack of transportation kept you from medical appointments or from getting medications?No04/05/2021ocial IsolationAnswerDate RecordedHow often do you feel lonely or isolated from those around you?Never 04/05/2021Food RiskAnswerDate RecordedWithin the past 12 months we worried whether our food would run out before we got money to buy more.Never true 04/05/2021Within the past 12 months the food we bought just didn't last and we didn't have money to get more.Never true04/05/2021CommentsUnknownSex and Gender InformationValueDate RecordedSex Assigned at BirthNot on fileLegal Sex Ukhrlr2204/05/2021 1:23 PM ESTGender IdentityNot on fileSexual OrientationNot on file Obstetrics History Last Filed Vital Signs Vital SignReadingTime TakenCommentsBlood Rqohoeev715/8104/06/2021 7:37 PM EST Uckuz125604/06/2021 7:37 PM RPAPjmzmgkbjtu92.5 ??C (97.7 ??F)04/06/2021 7:37 PM ESTRespiratory Hyhf810104/06/2021 7:37 PM ESTOxygen Gzazxamphd855%04/06/2021 7:37 PM ESTInhaled Oxygen Concentration--Rvyfho61 kg (147 lb 11.3 oz)04/06/2021 10:26 AM UJOJpmiaa069 cm (4' 11.84 )04/06/2021 10:26 AM ESTBody Mass Olpvn3517/18/2022 10:26 AM EST Plan of Treatment Health MaintenanceDue DateLast DoneCommentsBreast Cancer Buyuumskd1963 Colorectal Cancer Screening: Kukgzcurklf1963Diabetes: Annual Foot Exam 1973DTaP,Tdap,and Td Vaccines (1 - Tdap)1982Cervical Cancer Screening: Pap Smear02/07/1984RSV Immunization Adult Patients (1 - Risk 50-74 years 1-dose series)2013Zoster Vaccines (2 of 3) Pneumococcal Vaccine: 50+ Years (2 of 2 - PCV)/, 07/29/2012 HIV Fcejiojch47/17/2022Hepatitis C Pwjjzecij61/17/2022Medicare Annual Wellness Visit04/05/2021ocial Influencers of Health Iurufqdna32/17/2022Diabetes: Blood Sugar Control Test (HGBA1C)/, 03/15/2021, 2Diabetes: Annual Retina Eye Exam1Diabetes: Annual Urine Albumin- Creatinine Ratio (uACR)/2Diabetes: Annual GFR (Glomerular Filtration Rate)/, 04/05/2021, 03/15/2021, Additional history existsHypertension/CHF/CAD Annual BMP Blood Test, 04/05/2021, 03/15/2021, Additional history existsDepression Kwceamceg58/01/2025 COVID-19 Vaccine ( - season)2024Influenza Vaccine (#1)2024 10/07/2019, 11/04/2013, 11/04/2013Cholesterol Screening (Lipid Panel)03/15/2026 03/15/2021, 03/15/2021HIB VaccinesAged OutNo longer eligible based on patient's age to complete this topicHPV VaccinesAged OutNo longer eligible based on patient's age to complete this topicHepatitis A VaccinesAged OutNo longer eligible based on patient's age to complete this topicHepatitis B VaccinesAged OutNo longer eligible based on patient's age to complete this topicIPV Vaccines Aged OutNo longer eligible based on patient's age to complete this topicMMR VaccinesAged OutNo longer eligible based on patient's age to complete this topic Meningococcal ACWY VaccineAged OutNo longer eligible based on patient's age to complete this topicMeningococcal B VaccineAged OutNo longer eligible based on patient's age to complete this topicRSV Immunization Patients Under 20 months Aged OutNo longer eligible based on patient's age to complete this topic Varicella VaccinesAged OutNo longer eligible based on patient's age to complete this topic Procedures Procedure NamePriorityDate/TimeAssociated DiagnosisCommentsCOMPREHENSIVE METABOLIC MGJNKHuoivpj48/18/2022 4:22 AM EST HEMOGLOBIN J7OVxaajld58/18/2022 12:42 AM EST from Last 3 Months or Most Recently Relevant to Health Maintenance Results * (ABNORMAL) Comprehensive metabolic panel (04/06/2021 4:22 AM EST)Component ValueRef RangeTest MethodAnalysis TimePerformed AtPathologist SignatureSodium 077288 - 145 mmol/L LAB CHEMISTRY METHOD 04/06/2021 5:31 AM [facility] LABPotassium4.23.6 - 5.1 mmol/L LAB CHEMISTRY METHOD 04/06/2021 5:31 AM [facility] LPBDuheakbm75654 - 107 mmol/L LAB CHEMISTRY METHOD 04/06/2021 5:31 AM [facility] QCMUZ583(L)22 - 32 mmol/L LAB CHEMISTRY METHOD 04/06/2021 5:31 AM [facility] LABAnion Gap96 - 18 LAB CHEMISTRY METHOD 04/06/2021 5:31 AM [facility] LBVYfdkrdr324(H)70 - 99 mg/dL LAB CHEMISTRY METHOD 04/06/2021 5:31 AM [facility] IOZGBA82(H)8 - 20 mg/dL LAB CHEMISTRY METHOD 04/06/2021 5:31 AM [facility] LABCreatinine1.06 0.60 - 1.30 mg/dL LAB CHEMISTRY METHOD 04/06/2021 5:31 AM [facility] OMDmSNT93 mL/min/1.73m2 LAB CHEMISTRY METHOD 04/06/2021 5:31 AM [facility] LABBUN/Creatinine Ratio20.8(H)12.0 - 20.0 LAB CHEMISTRY METHOD 04/06/2021 5:31 AM [facility] LABCalcium9.08.9 - 10.3 mg/dL LAB CHEMISTRY METHOD 04/06/2021 5:31 AM [facility] LABAST (SGOT)14(L) 15 - 41 unit/L LAB CHEMISTRY METHOD 04/06/2021 5:31 AM [facility] LABALT (SGPT)117 - 52 unit/L LAB CHEMISTRY METHOD 04/06/2021 5:31 AM [facility] LABAlkaline Mvzbhdqgzoh1293 - 91 unit/L LAB CHEMISTRY METHOD 04/06/2021 5:31 AM [facility] LABTotal Protein 6.36.1 - 7.9 g/dL LAB CHEMISTRY METHOD 04/06/2021 5:31 AM [facility] LABAlbumin3.4(L) 3.5 - 4.8 g/dL LAB CHEMISTRY METHOD 04/06/2021 5:31 AM [facility] LABTotal Bilirubin 0.40.3 - 1.2 mg/dL LAB CHEMISTRY METHOD 04/06/2021 5:31 AM [facility] LABSpecimen (Source)Anatomical Location / LateralityCollection Method / VolumeCollection TimeReceived TimeBloodVenous blood specimen / UnknownVenipuncture / Unknown 04/06/2021 4:22 AM EST04/06/2021 5:03 AM EST Narrative Authorizing ProviderResult TypeResult StatusSin HERNANDEZ BLOOD ORDERABLES Final ResultPerforming OrganizationAddressCity/State/ZIP CodePhone Number [facility] [address] [place] [address] * (ABNORMAL) Hemoglobin A1c (04/06/2021 12:42 AM EST)ComponentValueRef RangeTest MethodAnalysis TimePerformed AtPathologist SignatureHemoglobin A1C11.8(H)<=5.6 % LAB CHEMISTRY METHOD 04/06/2021 12:31 PM [facility] LABComment: HbA1c values of 5.7-6.4 percent indicate an increased risk for developing diabetes mellitus. HbA1c values greater than or equal to 6.5 percent are diagnostic of diabetes mellitus. For diagnosis of diabetes in individuals without unequivocal hyperglycemia, results should be confirmed by repeat testing. Mean Bld Glu Estim.292mg/dL LAB CHEMISTRY METHOD 04/06/2021 12:31 PM [facility] LABSpecimen (Source) Anatomical Location / LateralityCollection Method / VolumeCollection Time Received TimeBloodVenous blood specimen / UnknownVenipuncture / Unknown 04/06/2021 12:42 AM EST04/06/2021 12:50 AM EST Narrative Authorizing ProviderResult TypeResult StatusAkojo HERNANDEZ BLOOD ORDERABLES Final ResultPerforming OrganizationAddressCity/State/ZIP CodePhone Number [facility] [address] [place] [address] from Last 3 Months or Most Recently Relevant to Health Maintenance Insurance Advance Directives * Full Code (Latest Code Status on File) Date ActivatedDate InactivatedComments04/05/2021 9:57 04/06/2021 10:03 PMThis code status was ascertained in the following way: Code status discussion: discussion with patient To update the patient's code status, place a code status order. Do not modify or discontinue any currently active code status orders. * Full Code - Default Date ActivatedDate InactivatedComments04/05/2021 5:43 PM2 9:57 PMThis is order is used when code status has not been discussed with the patient, or code status is otherwise unknown/unconfirmed To update the patient's code status, place a code status order. Do not modify or discontinue any currently active code status orders. Care Teams Team MemberRelationshipSpecialtyStart DateEnd Date Physician, Pcp Unknown PCP - General04/05/21
--- OUTSIDE RECORDS SUMMARY | 2024-12-21 09:50 | XMS_ITS | Clinical Summary ---
Author Organization [facility] Address [address], [address] [place] [address] Care Team Providers Care Research And Development Technician Name Role Phone Migue Cole MD Primary Care Provider [phone] Allergies Active AllergyReactionsCriticalityNoted DateCommentsMoxifloxacin Hydrochloride VjdkTld1912/02/20119960OfvvsuijnkIvyfAqx09/15/3355RmyhazlddwnhLoaiWlwr75/11/2017Peg 1404-Uua-Conln-Nacl-QnxxgkXhdo70/11/2017TapentadolOther (See Comments)Medium 10/31/2015 Mental status changes Medications MedicationSigDispense QuantityRefillsLast FilledStart DateEnd DateStatus aspirin 325 MG tablet Take 325 mg by mouth daily04/07/2017Active tiZANidine (ZANAFLEX) 4 MG tablet Take 1 tablet by mouth as neededActive Multiple Vitamins-Minerals (MULTIVITAMIN ADULT PO) Take 1 tablet by mouth dailyActive brimonidine (ALPHAGAN P) 0.15 % ophthalmic solution Apply 1 drop to eye 2 times daily Left eye11/15/2019Active carvedilol (COREG) 25 MG tablet Take 0.5 tablets by mouth 2 times daily (with meals)Active HYDROcodone-acetaminophen (NORCO) 5-325 MG per tablet Take 1 tablet by mouth every 4 hours as needed for Pain.Active levothyroxine (SYNTHROID) 100 MCG tablet Take 1 tablet by mouth Daily 30 tablet ctive gabapentin (NEURONTIN) 100 MG capsule Take 2 capsules by mouth 3 times daily for 15 days. 90 capsule 05/24/2022Active valproic acid (DEPAKENE) 250 MG/5ML SOLN oral solution Take 5 mLs by mouth in the morning and at bedtime 300 mL 07/10/2021ctive calcium carbonate-vitamin D3 (CALTRATE) 600-400 MG-UNIT TABS per tab Take 2 tablets by mouth daily 60 tablet ctive potassium bicarb-citric acid (EFFER-K) 20 MEQ TBEF effervescent tablet 2 tablets by Per NG tube route in the morning, at noon, and at bedtime 120 tablet 07/19/2021ctive famotidine (PEPCID) 20 MG tablet 1 tablet by Per NG tube route 2 times daily 60 tablet ctive QUEtiapine (SEROQUEL) 25 MG tablet Take 1 tablet by mouth nightly 60 tablet ctive Additional Information Patient taking differently:25 mg Oral2 TIMES DAILY, Reported on 08/15/2022 Insulin Detemir (LEVEMIR SC) Inject 12 Units into the skin at bedtimeActive metoclopramide (REGLAN) 5 MG/5ML solution Take 5 mLs by mouth 2 times dailyActive hydrocortisone 1 % cream Apply topically 2 times daily as needed Apply topically 2 times daily. Rash on armsActive NONFORMULARY Tube feedings per ng tube at 65/hrActive Sodium Polystyrene Sulfonate (KAYEXALATE PO) Take by mouth Given for potassium 5.8 on 08/15/21Active acetaminophen (TYLENOL) 325 MG tablet Take 2 tablets by mouth every 4 hours as needed for PainActive albuterol (PROVENTIL) (2.5 MG/3ML) 0.083% nebulizer solution Take 3 mLs by nebulization every 4 hours as needed for WheezingActive docusate sodium (COLACE) 100 MG capsule Take 1 capsule by mouth every 12 hours as needed for ConstipationActive DULoxetine (CYMBALTA) 60 MG extended release capsule Take 1 capsule by mouth dailyActive divalproex (DEPAKOTE) [address] tablet Take 1 tablet by mouth in the morning and at bedtimeActive ferrous sulfate (IRON 325) 325 (65 Fe) MG tablet Take 1 tablet by mouth dailyActive fluocinonide (LIDEX) 0.05 % cream Apply topically at bedtime Apply topically 2 times daily.Active ipratropium 0.5 mg-albuterol 2.5 mg (DUONEB) 0.5-2.5 (3) MG/3ML SOLN nebulizer solution Inhale 3 mLs into the lungs every 6 hoursActive HM LIDOCAINE PATCH EX Apply topicallyActive melatonin 3 MG TABS tablet Take 5 mg by mouth dailyActive nitroGLYCERIN (NITROSTAT) 0.[address] 1 tablet under the tongue every 5 minutes as needed for Chest pain up to max of 3 total doses. If no relief after 1 dose, call 911.Active Active Problems ProblemNoted DateDiagnosed DateS/P cervical spinal leyymi1704/02/2022nemia due to blood loss09/26/2021cute respiratory qxjwlpk4909/25/2021Ventilator associated cylxvxnsv20/06/2022Tracheostomy care09/22/2021Tracheostomy in place09/22/2021 Delirium due to multiple gshmdosapc47/02/2022ischarge planning tbywcj9109/16/2021 CSF ulwoydvvmk78/26/2022ther cranial cerebrospinal fluid leak08/22/2021 Czlltiprouusmn09/29/3959WGUHR65/28/2022Metabolic mheutmxlhicgnv16/14/2022MSSA (methicillin susceptible Staphylococcus aureus) rntvppxlbe20/14/2022epsis 06/29/2021taphylococcus aureus mnozrpkaqn24/13/8516Zmknjmplhzzeds21/13/2022 Ljjoxnjbnoj69/13/2022Type 2 diabetes mellitus with diabetic polyneuropathy 06/29/2021rimary ktlntvxigfra79/13/2022ltered mental state06/28/2021ellulitis of left wscdhd6607/16/2018EncephalopathyToxic metabolic 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)Upper GI bleedNon-intractable vomitingUnintentional weight lossCRP elevatedBandemiaAllergy to multiple antibioticsOsteomyelitis of cervical spineAcute intractable headacheSeptic arthritis of cervical spine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Normocytic anemiaAcute respiratory failure with hypoxemiaAtlantoaxial instabilityACP (advance care planning)Goals of care, counseling/discussionEncounter for palliative careFeeding difficultiesOn tube feeding dietAcute non-recurrent pansinusitisRhinorrhea Family History Medical HistoryRelationNameCommentsCancerFatherDiabetesMotherRelationNameStatus CommentsFatherDeceased (Age 82)pancreatic cancerMotherDeceased (Age 71)diabetes Social History Tobacco UseTypesPacks/DayYears UsedDateSmoking Tobacco: FormerCigarettes 10/06/1975 - 10/06/1995Smokeless Tobacco: Never Tobacco Cessation:Counseling Given: Not Answered Alcohol UseStandard Drinks/WeekCommentsNo0 (1 standard drink = 0.6 oz pure alcohol)CommentsNoSex and Gender InformationValueDate RecordedSex Assigned at BirthNot on fileLegal XvcJeyxlf55/10/2013 10:05 AM ESTGender IdentityNot on fileSexual OrientationNot on file Last Filed Vital Signs Vital SignReadingTime TakenCommentsBlood Vkllyauq953/8301/23/2023 10:54 AM EST Slnls091401/23/2023 10:54 AM LVHLmyectxvbkp06.6 ??C (97.9 ??F)01/23/2023 10:54 AM ESTRespiratory Gasp244703/26/2022 10:54 AM ESTOxygen Bjhjjsigwr60%01/23/2023 10:54 AM ESTInhaled Oxygen Concentration--Ulftie59.2 kg (135 lb)01/23/2023 10:54 AM WHPSmzwkj753.1 cm (5' 5 )08/15/2022 9:03 AM EDTBody Mass Index22.47008/15/2022 9:03 AM EDT Plan of Treatment Health MaintenanceDue DateLast DoneCommentsDepression Ctyows3602/06/1975HIV screen 1978Diabetic retinal exam1981Hepatitis C fzxepv9202/06/1981 DTaP/Tdap/Td vaccine (1 - Tdap)1982Pap smear02/07/1984Cervical cancer pfjyzl5202/06/1993HPV (without or with Pap)02/06/19937555Ttugpbwjlyt29/21/2008Fecal- DNA (Cologuard): Average risk02/07/2008Sigmoidoscopy/CT tosbljkjdmak54/21/2008 Shingles vaccine (2 of 3)12/30/Diabetic Alb to Cr ratio (uACR) test06/25/reast cancer agownm73/16/Pneumococcal 50+ years Vaccine (2 of 2 - PCV)/, 07/29/20121566Imqtrk98/12/2023 06/28/2021, 06/28/2016, 06/25/2013, Additional history existsDiabetic foot exam /olorectal Cancer Hlwljg9707/24/2022FIT/FOBT: Average risk /1C test (Diabetic or Prediabetic)/, 06/28/2021, 07/19/2017, Additional history existsGFR test (Diabetes, CKD 3-4, OR last GFR 15-59)/12/2021, 09/25/2021, 09/24/2021, Additional history existsAnnual Wellness Visit (Medicare)01/13/2023Respiratory Syncytial Virus (RSV) or age 60 yrs+ (1 - Risk 60-74 years 1-dose series)2023Flu vaccine (#1)/, 11/04/2013COVID-19 Vaccine ( - season)2024Pneumococcal 0-49 years PfgddzyPjlwdhyargso02/20/2020, 07/29/2012Hepatitis A vaccineAged OutNo longer eligible based on patient's age to complete this topicHepatitis B vaccineAged OutNo longer eligible based on patient's age to complete this topicHib vaccineAged OutNo longer eligible based on patient's age to complete this topicMeningococcal (ACWY) vaccineAged OutNo longer eligible based on patient's age to complete this topicMeningococcal B vaccineAged OutNo longer eligible based on patient's age to complete this topic Polio vaccineAged OutNo longer eligible based on patient's age to complete this topic Medical Devices ImplantedTypeAreaManufacturerDevice IdentifierShelf Expiration DateModel / Serial / LotSystem Spnl Seal 3ml Exact Duraseal - [id number] Implanted:Qty: 1 on 07/06/20[facility] Spine CervicalINTEGRA LIFESCIENCES BRETT-[id number] / / Kit Bne Grft Xsm 1.4cc Rhbmp-2 Absrb Cllgn Spng Infuse - [id number] Implanted:Qty: 1 on 09/25/2021 [facility]: Spine CervicalMEDTRONIC SPINALGRAFT TECH-WD02/16/[id number] / [id number] / [id number] Cellr Bne Matrx Influx Sparc 5cc - [id number] Implanted:Qty: 1 on 09/25/2021 [facility]: Spine CervicalISTO TECHNOLOGIES INC-WD05/04/[id number] / [id number] / [id number] Cellr Bne Matrx Influx Sparc 5cc - [id number] Implanted:Qty: 1 on 09/25/2021 [facility]: Spine CervicalISTO TECHNOLOGIES INC-WD05/04/[id number] / [id number] / [id number] Spnl L34mm Krz36gj Occipitocervical Up Thor Multiaxial - [id number] Implanted:Qty: 2 on 09/25/2021 [facility]: Spine CervicalMEDTRONIC SOFAMOR DANEK-[id number] / / Bishnu Spnl L25mm Dia3.5mm Occipitocervical Up Thor Precut - [id number] Implanted:Qty: 2 on 09/25/2021 by [facility]: Spine CervicalMEDTRONIC SOFAMOR DANEK-[id number] / / Set Screw Spinal M6 - [id number] Implanted:Qty: 4 on 09/25/2021 [facility]: Spine CervicalMEDTRONIC SOFAMOR DANEK-[id number] / / Procedures Procedure NamePriorityDate/TimeAssociated DiagnosisCommentsBASIC METABOLIC PANEL W/ REFLEX TO MG FOR LOW NUdnhhfr24/11/2022 2:38 AM EDT HEMOGLOBIN A6SSwhrwpz87/24/2022 7:34 AM EDT OCCULT BLOOD SCREENStat Sunquest Label print07/24/2021 2:30 PM EDT LIPID LUEWQEtqgvwy35/12/2022 9:38 PM EDT MICROALBUMIN, ONOhlaevi80/09/2014 7:05 AM EDT from Last 3 Months or Most Recently Relevant to Health Maintenance Results * (ABNORMAL) Basic Metabolic Panel w/ Reflex to MG (09/27/2021 2:38 AM EDT) ComponentValueRef RangeTest MethodAnalysis TimePerformed AtPathologist OrhowquelEciygky153(H)70 - 99 mg/dL09/27/2021 2:38 AM EDTMERCY LABORATORIESBUN 126 - 20 mg/dL09/27/2021 2:38 AM EDTMERCY LABORATORIESCreatinine0.540.50 - 0.90 mg/dL09/27/2021 2:38 AM EDTMERCY LABORATORIESCalcium9.18.6 - 10.4 mg/dL 09/27/2021 2:38 AM EDTMERCY MVMGQAGDSIDGQtoymq916712 - 144 mmol/L09/27/2021 2:38 AM EDTMERCY LABORATORIESPotassium3.2(L)3.7 - 5.3 mmol/L09/27/2021 2:38 AM EDTMERCY WSZQZZKZDOSJYxberjdr70815 - 107 mmol/L09/27/2021 2:38 AM EDTMERCY SMRPJSCYRZTEBP79349 - 31 mmol/L09/27/2021 2:38 AM EDTMERCY LABORATORIESAnion Kua130 - 17 mmol/L09/27/2021 2:38 AM EDTMERCY LABORATORIESGFR Non->60>60 mL/min09/27/2021 2:38 AM EDTMERCY LABORATORIESGFR >60>60 mL/min09/27/2021 2:38 AM EDTMERCY LABORATORIESGFR Comment 09/27/2021 2:38 AM EDTMERCY LABORATORIESComment: Average GFR for 50-59 years old: 93 mL/min/1.73sq m Chronic Kidney Disease: <60 mL/min/1.73sq m Kidney failure: <15 mL/min/1.73sq m ? eGFR calculated using average adult body mass. Additional eGFR calculator available at: ? http://www.BringMeTheNews/multiple_crcl_2012.htm ? Specimen (Source)Anatomical Location / LateralityCollection Method / Volume Collection TimeReceived TimeBLOOD SPECIMEN / Whahbue8509/27/2021 2:38 AM EDT 09/27/2021 2:42 AM EDT Narrative Authorizing ProviderResult TypeResult StatusDarleen Carmona MDCHEMISTRY ORDERABLES Edited Result - FinalPerforming OrganizationAddressCity/State/ZIP CodePhone Number [facility] [address] [place] [address], [facility] [phone] * Hemoglobin A1C (09/09/2021 7:34 AM EDT)ComponentValueRef RangeTest Method Analysis TimePerformed AtPathologist SignatureHemoglobin A1C5.14.0 - 6.0 % 09/09/2021 7:34 AM EDTMERCY LABORATORIESEstimated Avg Sampaso530cb/dL 09/09/2021 7:34 AM EDTMERCY LABORATORIESComment: The ADA and AACC recommend providing the estimated average glucose result to permit better patient understanding of their HBA1c result. Specimen (Source)Anatomical Location / LateralityCollection Method / Volume Collection TimeReceived Time09/09/2021 7:34 AM EDT09/09/2021 8:11 AM EDT Narrative Authorizing ProviderResult TypeResult StatusChris Bascarlett MDCHEMISTRY ORDERABLES Final ResultPerforming OrganizationAddressCity/State/ZIP CodePhone Number [facility] [address] [place] [address], [facility] [phone] * (ABNORMAL) OCCULT BLOOD SCREEN (07/24/2021 2:30 PM EDT)ComponentValueRef Range Test MethodAnalysis TimePerformed AtPathologist SignatureOccult Blood, Stool #1POSITIVE(A)DHNRJNBJ91/07/2022 2:30 PM EDTMERCY LABORATORIESDate, Stool #1 6,2,0350707/24/2021 2:30 PM EDTMERCY LABORATORIESTime, Stool #[id number] 2:30 PM EDTMERCY LABORATORIESSpecimen (Source)Anatomical Location / Laterality Collection Method / VolumeCollection TimeReceived TimeSTOOL SPECIMEN / Unknown 07/24/2021 2:30 PM EDT07/25/2021 12:13 AM EDT Narrative Authorizing ProviderResult TypeResult StatusXin [place] MDBODY FLUIDS AND STOOLS ORDERABLESFinal ResultPerforming OrganizationAddressCity/State/ZIP CodePhone Number [facility] [employer] [address] [place] [address], [facility] [phone] * LIPID PANEL (06/28/2021 9:38 PM EDT)ComponentValueRef RangeTest MethodAnalysis TimePerformed AtPathologist XojlesnyyRjuptinskop258<200 mg/dL06/28/2021 9:38 PM EDTMERCY LABORATORIESComment: Cholesterol Guidelines: <200 Desirable 200-240 ??Borderline >240 Undesirable HDL71>40 mg/dL06/28/2021 9:38 PM EDTMERCY LABORATORIESComment: HDL Guidelines: <40 Undesirable 40-59 ?Borderline >59 Desirable LDL Gefllpdqady120 - 130 mg/dL06/28/2021 9:38 PM EDTMERCY LABORATORIESComment: LDL Guidelines: <100 Desirable 100-129 ?? Near to/above Desirable 130-159 ?? Borderline >159 Undesirable Direct (measured) LDL and calculated LDL are not interchangeable tests. Chol/HDL Ratio2.2<505 9:38 PM EDTMERCY LABORATORIESComment:Triglycerides 105<150 mg/dL06/28/2021 9:38 PM EDTMERCY LABORATORIESComment: Triglyceride Guidelines: <150 Desirable 150-199 ??Borderline 200-499 ??High >499 Very high Based on AHA Guidelines for fasting triglyceride, November 2011. Specimen (Source)Anatomical Location / LateralityCollection Method / Volume Collection TimeReceived TimeBLOOD SPECIMEN / Rkbwfnh1906/28/2021 9:38 PM EDT 06/28/2021 9:38 PM EDT Narrative Authorizing ProviderResult TypeResult StatusSubrabola Jewell MDCHEMISTRY ORDERABLESFinal ResultPerforming OrganizationAddressCity/State/ZIP CodePhone Number [address] [address], [facility] [phone] * Microalbumin, Ur (06/25/2013 7:05 AM EDT)ComponentValueRef RangeTest Method Analysis TimePerformed AtPathologist SignatureAlbumin Urine12<21 mg/L 06/25/2013 9:11 PM EDTMHPN LABCreatinine, Ur166.139.0 - 259.0 mg/dL06/25/2013 9:11 PM EDTMHPN LABComment: The reference range and other method performance specifications have not been established for this body fluid. ??The test result must be integrated into the clinical context for interpretation. Microalb/Tour Narrator. Qtejm1sqb/mg creat06/25/2013 9:11 PM EDTMHPN LABUrine Microalbumin Pxmczm2006/25/2013 9:11 PM EDTMHPN LABComment: REFERENCE RANGE NORMAL ? = 0 - 13 ?? mcg/mg creat BORDERLINE = 14 - 30 ??mcg/mg creat ABNORMAL = >30 mcg/mg creat Performed at [place] [address] Specimen (Source)Anatomical Location / LateralityCollection Method / Volume Collection TimeReceived Time06/25/2013 7:05 AM EDT06/25/2013 7:06 AM EDT Narrative Authorizing ProviderResult TypeResult StatusDanitorsten ZIMMERMAN ORDERABLES Edited Result - FinalPerforming OrganizationAddressCity/State/ZIP CodePhone Number [facility] [address] [place] [address], [facility] [phone] [facility] from Last 3 Months or Most Recently Relevant to Health Maintenance Insurance Advance Directives TypeDate RecordedPatient RepresentativeExplanationACP-Advance Directive08/13/2021 4:27 PM * Full Code (Latest Code Status on File) Date ActivatedDate InactivatedComments08/22/2021 1:31 AM09/28/2021 2:06 PM * Full Code Date ActivatedDate InactivatedComments07/14/2021 4:39 PM08/11/2021 12:08 AM * Full Code Date ActivatedDate InactivatedComments06/28/2021 9:07 PM07/10/2021 7:03 PM NameRelationshipHealthcare Agent RelationshipCommunicationTammi William Brother/SisterPrimary Decision Maker* * * J JanfedericoOtherSupplemental (Other) Decision Maker* Care Teams Team MemberRelationshipSpecialtyStart DateEnd Date Migue Cole MD [address] [place] [address] PCP - GeneralInternal Medicine08/14/21
--- OUTSIDE RECORDS SUMMARY | 2024-12-21 09:50 | XMS_ITS | Clinical Summary ---
Author Organization [facility] Address [address] [place] [address] Care Team Providers Care Restaurant Host/Hostess Name Role Phone Aamir Purcell DO Primary Care Provider [phone] Allergies Active AllergyReactionsCriticalityNoted DateCommentsMoxifloxacinItching,Swelling ,Rash,Other (See Comments)Low04/07/2017 Abdominal pain OdnexlnfaxEaicvdrUvyv67/19/2018 burning BhihpxlgyaGsucxbc96/19/2018 Medications MedicationSigDispense QuantityRefillsLast FilledStart DateEnd DateStatus carvediloL (COREG) 25 MG tablet 2 (two) times a day.Active levothyroxine 112 mcg cap daily.Active MULTIVITAMIN ORAL daily.Active tiZANidine (ZANAFLEX) 4 MG tablet as needed.Active latanoprost (XALATAN) 0.005 % ophthalmic solution Administer 1 drop to both eyes at bedtime.6003/05/2017Active aspirin 325 MG EC tablet Take 1 (one) tablet (325 mg total) by mouth daily. 60 tablet Active brimonidine (ALPHAGAN) 0.15 % ophthalmic solution Administer 1 drop into the left eye 2 (two) times a day .11/15/2019Active dorzolamide-timoloL (COSOPT) 22.3-6.8 mg/mL ophthalmic solution Apply 1 drop to eye 2 (two) times a day .08/08/2017Active insulin lispro 100 unit/mL InPn Use less than 30 units daily with sliding scale.07/21/2019Active insulin glargine (LANTUS) 100 unit/mL injection Inject 16 (sixteen) Units under the skin nightly . 4.8 mL 05/28/2021ctive lisinopriL (PRINIVIL,ZESTRIL) 10 MG tablet Take 1 (one) tablet (10 mg total) by mouth daily with lunch . 30 tablet 05/28/2021ctive Active Problems ProblemNoted DateDiagnosed DateOther headache hazphwke68/02/2022 Assessment & Plan (05/20/2021 9:25 AM EDT): [...] monitor for improvement with treatment of these. Vkcceuq3605/19/2021 Assessment & Plan (05/20/2021 9:25 AM EDT): [...] disorder by virtue of having diabetes. Cervical gbnvgcbehvpjn22/01/2022Neck bicbqd149835Ykxneirmolzwy93/06/2020Foot ulcer02/25/2019 Overview (09/13/2020): OTHER PART OF FOOT Non-pressure chronic ulcer of other part of left foot with fat layer exposed 08/14/2017Non-pressure chronic ulcer of left lower leg with fat layer exposed 03/28/2017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 involvement without evidenceof qkwbedgf82/26/2018Non-pressure chronic ulcer of left ankle with fat layer sgnzkhi6509/06/2016Non-pressure chronic ulcer of right ankle limited to breakdown of skin08/14/2016Type 2 diabetes mellitus with foot ulcer06/19/2016Fracture of third toe, left, cvfkft4202/15/2016Closed displaced fracture of first metatarsal bone of left foot with routine jnqwicc7204/17/2015 Drgjqk6003/27/2015Chronic ulcer of great toe of left foot03/27/2015Glaucoma 03/27/2015High pqddstnuydx05/08/1666Thkochidkucy64/08/2016Thyroid disorder 03/27/2015 Immunizations ImmunizationAdministration DatesNext DueInfluenza, Hjmgbgddamk84/20/2020 Pneumococcal, Rbtbwvonrvl70/20/2020 Family History Medical HistoryRelationCommentsPancreatic cancerFatherDiabetesMotherRelation StatusCommentsFatherDeceasedMotherDeceased Social History Tobacco UseTypesPacks/DayYears UsedDateSmoking Tobacco: FormerCigarettes 04/07/1979 - 04/07/1989mokeless Tobacco: Never Comments:doesn't remember ho w much she smoked Alcohol UseStandard Drinks/WeekCommentsNot Currently0 (1 standard drink = 0.6 oz pure alcohol)rarelyCommentsNoSex and Gender InformationValueDate RecordedSex Assigned at BirthNot on fileLegal QnnSdwnwy43/25/2014 4:56 AM EDT Gender AzuvjujdKfohbt62/18/2021 1:29 PM EDTSexual VfzhjnbnqfaOroqhqlh50/29/2021 3:56 PM EDT Last Filed Vital Signs Vital SignReadingTime TakenCommentsBlood Bmyucqso148/7904 5:11 PM EDT Oqoga8624 5:11 PM FAUVtjrgwmlvxq11.8 ??C (98.3 ??F)05/29/2021 5:11 PM EDTRespiratory Ceze6435 5:11 PM EDTOxygen Qhvcywhjvc66%05/29/2021 5:11 PM EDTInhaled Oxygen Concentration--Fkmsir19.2 kg (167 lb 15.9 oz)05/28/2021 5:00 AM IHAbyxIuuhwv211.1 cm (5' 5 )05/19/2021 9:04 AM EDTBody Mass Index27.96 05/19/2021 9:04 AM EDT Plan of Treatment Health MaintenanceDue DateLast DoneCommentsCT Xmntdhlywxqz1963Colonoscopy 1963Colorectal Cancer Screening/Crhmlklrwl1963Fecal DNA1963 Fecal occult blood test (FOBT,FIT)1963Wellness Visit1966Depression Screening/Follow-Up (PHQ-2/9)1975HIV Nranvpbsg37/21/1978Hepatitis C Xepsajqrg72/21/1981Tetanus/Diphtheria/Pertussis (1 - Tdap)1982Pap Smear 02/07/1984Cervical Cancer Tphqtzrvx24/21/1993HPV/Yswqoi9902/06/1993MMR Vaccines (1 of 1 - Standard series)12/02/2013Zoster Vaccines (2 of 3) Pneumococcal Vaccine: 50+ Years (2 of 2 - PCV), 07/29/2012 COVID-19 Vaccine (1 - season)2024Influenza Vaccine (#1)2024 10/07/2019, 11/04/2013, 11/04/2013RSV Vaccines (1 - 1-dose 75+ series)2038 HIB VaccinesAged OutNo longer eligible based on patient's age to complete this topicHPV VaccinesAged OutNo longer eligible based on patient's age to complete this topicHepatitis A VaccinesAged OutNo longer eligible based on patient's age to complete this topicHepatitis B VaccinesAged OutNo longer eligible based on patient's age to complete this topicIPV VaccinesAged OutNo longer eligible based on patient's age to complete this topicMeningococcal ACWY VaccineAged OutNo longer eligible based on patient's age to complete this topicMeningococcal B VaccineAged OutNo longer eligible based on patient's age to complete this topic Rotavirus VaccinesAged OutNo longer eligible based on patient's age to complete this topic Medical Devices ImplantedTypeAreaManufacturerDevice IdentifierShelf Expiration DateModel / Serial / LotStent-07/27/2012 Implanted:Qty: 1 on 07/27/2012StentRight: Rodríguez [id number] ISTENT / [id number] / [id number]:Non-clinical testing has demonstrated that the iStent?? Trabecular Micro-Bypass Stent (Models [id number] and [id number]) is MR Conditional. A patient with this device can be safely scanned in an MR system meeting the following conditions: ??? Static magnetic field of 3T or less ??? Maximum spatial gradient magnetic field of 4,000 gauss/cm (40 T/m) ??? Maximum MR system reported, whole body averaged specific absorption rate (HAFSA) of 4 W/kg (First Level Controlled Operating Mode) Under the scan conditions defined above, the iStent?? Trabecular Micro-Bypass Stent (Models [id number] and [id number]) is not exp ected to produce a clinically significant temperature rise after 15 minutes of continuous scanning.In non-clinical testing, the image artifact caused by the device extends less than 15 mm from the device when imaged with a gradient echo pulse sequence and a 3.0 T MRI system Insurance * Guarantor: Cleo Georges LAccount TypeRelation to PatientDate of BirthPhone Billing AddressPersonal/QptzsoYuis1965 [phone] (Home) [address] [place] [id number] [address] [place] [address] [address] [place] [address] Advance Directives For more information, please contact: [phone] TypeDate RecordedPatient RepresentativeExplanationPower of Attorney05/28/2021 12:09 PMPower of Attorney05/28/2021 12:01 PM * Full Code - Unverified (Latest Code Status on File) Date ActivatedDate InactivatedComments05/18/2021 10:06 PM05/29/2021 7:56 PM Care Teams Team MemberRelationshipSpecialtyStart DateEnd Date Aamir Purcell DO [address] [place] [address] PCP - GeneralFamily Medicine03/28/17
--- OUTSIDE RECORDS SUMMARY | 2024-12-21 09:50 | XMS_ITS | Clinical Summary ---
Author Organization [facility] Healthcare Address [address] [place] [address] Care Team Providers Care Avionics Installer Name Role Phone Aamir Purcell MD Primary Care Provider [phone] Allergies Active AllergyReactionsCriticalityNoted DateCommentsCephalexinHives,Itching, Unknown,Rash,QvvzphaqBlir20/15/2012 burning MoxifloxacinItching,Unknown,Rash,TwzedtjmTgfg68/15/2012 Abdominal pain Peg 3043-Gif-Uivyk-Nacl-ZzlykeYlho86/11/9937JkkmwxiwfkSgansbpJdwr26/19/2014 Mental status changes Passed out Medications MedicationSigDispense QuantityRefillsLast FilledStart DateEnd DateStatus acetaminophen-codeine (TYLENOL/CODEINE #3) 300-30 MG tablet Take 1 tablet twice a day by oral route as needed.Active albuterol (2.5 MG/3ML) 0.083% nebulizer solution Take 3 mL by nebulization every 4 (four) hours if neededActive amitriptyline (Elavil) 25 MG tablet Take 1 tablet as needed by oral route.Active divalproex (Depakote ER) 500 MG 24 hr tablet 08/06/2023ctive insulin degludec (Tresiba FlexTouch) 100 UNIT/ML injection Inject by subcutaneous route.Active Basaglar KwikPen 100 UNIT/ML pen 08/15/2023ctive levothyroxine (Tirosint) 112 MCG capsule Take 1 capsule every day by oral route.Active omeprazole (PriLOSEC) [address] capsule 08/08/2023ctive sucralfate (Carafate) 1 GM/10ML suspension 08/15/2023ctive tiZANidine (Zanaflex) 4 MG tablet Take 1 tablet as needed by oral route.Active zonisamide (Zonegran) 100 MG capsule Take 1 capsule 3 times a day by oral route.Active brimonidine (AlphaGAN P) 0.2 % ophthalmic solution 5Active doxycycline (Vibramycin) 100 MG capsule 04/15/2024tive glipiZIDE (Glucotrol) 10 MG tablet 1 (one) time each day at the same timeActive HYDROcodone-acetaminophen ([place]) 5-325 MG tablet Take 1 tablet by mouth every 4 (four) hours if neededActive meclizine (Antivert) 25 MG tablet 04/15/2024tive traMADol (Ultram) 50 MG tablet 11/04/2023ctive triamcinolone (Kenalog) 0.1 % cream Indications:Other atopic dermatitisApply (1g) to the affected areas (feet), up to twice a day when flared, do not use one the face, groin, or underarms, 30 day supply 80 g 5Active doxycycline (Monodox) 100 MG capsule Indications:Traumatic ulcer of left foot, unspecified ulcer stage (HCC)Take 1 capsule, by mouth, bid x 7 days 14 capsule 5Active carvedilol (Coreg) 12.5 MG tablet Indications:Primary hypertensionTake 1 tablet (12.5 mg) by mouth in the morning and 1 tablet (12.5 mg) before bedtime. 60 tablet ctive aspirin 325 MG tablet Indications:Primary hypertensionTake 1 tablet (325 mg) by mouth Daily 30 tablet ctive ferrous sulfate (Fe Tabs) 325 (65 Fe) MG EC tablet Indications:Other iron deficiency anemiaTake 1 tablet (325 mg) by mouth in the morning. Take with meals. Do not crush, chew, or split. 30 tablet ctive potassium chloride CR (K-Tab) 20 MEQ ER tablet Indications:HypokalemiaTake 1 tablet (20 mEq) by mouth Daily Do not crush, chew, or split. 360 tablet ctive potassium chloride CR (K-Tab) 20 MEQ ER tablet Indications:HypokalemiaTake 1 tablet (20 mEq) by mouth Daily Do not crush, chew, or split. 30 tablet ctive guaiFENesin (Mucinex) 600 MG 12 hr tablet Indications:Cough, unspecified typeTake 2 tablets (1,200 mg) by mouth in the morning and 2 tablets (1,200 mg) before bedtime. Do not crush, chew, or split. 120 tablet ctive Multiple Vitamins-Minerals (multivitamin with minerals) tablet Indications:Other iron deficiency anemiaTake 1 tablet by mouth Daily 30 tablet ctive DULoxetine (Cymbalta) [address] capsule Indications:Current mild episode of major depressive disorder, unspecified whether recurrentTake 1 capsule (60 mg) by mouth Daily 30 capsule ctive calcium carbonate (Tums Ultra) 1000 MG chewable tablet Indications:HypocalcemiaChew 1 tablet (1,000 mg) at bedtime 30 tablet ctive carvedilol (Coreg) 12.5 MG tablet /07/2024Discontinued(Reorder) DULoxetine (Cymbalta) [address] capsule Take 1 capsule by mouth Daily12/07/2024Discontinued(Reorder) potassium chloride CR (K-Tab) 20 MEQ ER tablet Indications:HypokalemiaTake 1 tablet (20 mEq) by mouth Daily Do not crush, chew, or split. 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 [address] [place] [address] Jany Becerra MA Cough, unspecified type12/07/2024Telephone [facility] [address] [place] [address] [place] Chávez, EELER 11/30/2024Telephone [facility] [address] [place] [address] [place] Chávez, EELER 11/23/2024Telephone [facility] [address] [place] [address] [place] Chávez, EELER 11/23/2024Telephone [facility] [address] [place] [address] Arias Cruz MD 11/22/2024Telephone [facility] [address] [place] [address] [place] Chávez, EELER 11/02/2024bstract [facility] [address] [place] [address] Unallocated, Katja Mccauley MD 09/27/2024 1:15 PM EDTOffice Visit [facility] [address] [place] [address] Adilson Johnson, Primary open angle glaucoma (POAG) of both eyes, moderate stage (Primary Dx); 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 mellitus (HCC); Left posterior capsular opacification; Dry eyes09/27/2024amboo flowsheet [facility] [address] [place] [address] Adilson Johnson DO 09/27/2024Travelfrom Last 3 Months Social History Tobacco UseTypesPacks/DayYears UsedDateSmoking Tobacco: Never Assessed CommentsUnknownSex and Gender InformationValueDate RecordedSex Assigned at Not on fileLegal GhsIbctbu64/15/2023 6:48 PM EDTGender IdentityNot on fileSexual OrientationNot on file Last Filed Vital Signs Vital SignReadingTime TakenCommentsBlood Pressure--Pulse--Temperature-- Respiratory Rate--Oxygen Saturation--Inhaled Oxygen Concentration--Botove84.9 kg (152 lb)04/03/2021 12:00 PM RQWUzkmua816.1 cm (5' 5 )04/26/2022 12:00 PM ESTBody Mass Index25.29004/03/2021 12:00 PM EST Plan of Treatment DateTypeDepartmentCare Team (Latest Contact Info)Oekjpowbput68/10/2025 1:45 PM ESTOffice Visit [facility] [address] [place] [id number] Adilson Johnson DO [address] [place] [address] Procedures Procedure NamePriorityDate/TimeAssociated DiagnosisCommentsHUMPHREY VISUAL FIELD - OU - BOTH UOIAIqkmxst21/11/2025 1:41 PM EDT Primary open angle glaucoma (POAG) of both eyes, moderate stage from Last 3 Months Results * [place] Visual Field - OU - Both Eyes (09/27/2024 1:41 PM EDT)Anatomical RegionLateralityModalityHeadVisual Field Narrative 09/27/2024 1:41 PM EDT Right Eye Reliability was good. Progression has been stable. Foveal threshold was normal. Findings include superior arcuate defect, superior nasal step defect. Left Eye Reliability was good. Progression has been stable. Foveal threshold was normal. Findings include superior arcuate defect, superior nasal step defect, inferior nasal step defect. Authorizing ProviderResult TypeResult StatusJojuliette MOSLEY VISUAL FIELDFinal Result from Last 3 Months Insurance Care Teams Team MemberRelationshipSpecialtyStart DateEnd Aamir Navarrete MD [address] [place] [address] PCP - GeneralFamily Medicine08/12/22
--- OUTSIDE RECORDS SUMMARY | 2024-12-21 10:01 | XMS_ITS | CCD ---
Author Organization [facility] Care Team Providers Care Java Development Manager Name Role Phone Neri Santa Unavailable Pili Gilliam Unavailable Reji Miramontes Unavailable Unavailable Unavailable Unavailable Luis Miguel Kaur Unavailable Neri Santa Unavailable Luis Miguel Kaur Unavailable Tisha Arriaga Unavailable Skylar Hernandez Unavailable [phone] Kartik Mejia Unavailable Pili Gilliam Admitting Unavailable Pili Gilliam Attending Unavailable Pili Gilliam Admitting Unavailable Pili Gilliam Attending Unavailable Pili Gilliam Admitting Unavailable Pili Gilliam Attending Unavailable Pili Gliliam Admitting Unavailable Pili Gilliam Attending Unavailable Martha Yan Admitting Unavailable Martha Yan Attending Unavailable Ariel Franklin Attending Unavailable Ariel Franklin Admitting Unavailable Joanne Garvin Admitting Unavaila ble Joanne Garvin Attending Unavaila ble Joanne Garvin Admitting Unavaila Joanne Carvajal Attending Unavaila Neri Shah Primary Care Provider Pili Gilliam Unavailable Reji Miramontes Unavailable Neri Santa Primary Care Provider [phone] Pili Gilliam Unavailable [phone] Craske, W. Don Unavailable HOUSE, NERI P [...] Attending Unavailabl e PHYSICIAN PHYSICIAN, PCP PCP UNKNOWN~[id number] Primary Care Unavailable BANNING, KIKE Consulting Unavailable PRECIOUS, BLASE Attending Unavailable PRECIOUS, BLASE Admitting Unavailable BANNING, KIKE Consulting Unavailable BANNING, KIKE Consulting Unavailable BAUERLE, CLARISA Consulting Unavailable BAUERLE, CLARISA Consulting Unavailable BAUERLE, CLARISA Consulting Unavailable VAISHALI ERAZO Referring Unavailable PHYSICIAN PHYSICIAN, PCP PCP UNKNOWN~[id number] Primary Care Unavailable House DO, Neri P Primary Care Provider David VIVEROS, Skylar Rizo Unavailable [phone] aKrtik Mejia MD Unavailable Tisha Arriaga MD Unavailable [...] Sr Neri P Primary Care Provider [phone] House DO, Sr Neri P Primary Care Provider [phone] JERRY POZO Attending Unavailable HERCHER, JOHNY Referring [...] Unavailable JANETTE, GANGA E Primary Care Unavailable [place] Neri VIVEROS Primary Care Provider Jami Onofre Attending Unavailable JemimaJami lambert Attending Unavailable Jami Onofre Attending Unavailable ROYER ALALars Admitting Unavailable LEILA LINTON Attending Unavailable Garfield Rodriguez Attending Unavailable House Neri VIVEROS Primary Care Provider SKYLAR WHITFIELD Attending Unavailable REBECA ROJAS Referring Unavailable RAMONA CAMPUZANO Attending Unavailable SKYLAR WHITFIELD Attending Unavailable Allergies Allergy ClassificationReported Allergen(s)Allergy TypeDate of OnsetReaction(s) FacilityCephalosporins (antibiotic) (3 sources)CephalexinDrug Wimggvh05-94-6465XmpnhmgEetyVkfluwQmgkql Agonists (3 sources)tapentadolDrug Imygyil91-31-7482RiqowtwBtkbQshzlmZgjvmnmqqg (antibiotic) (3 sources)moxifloxacinDrug Nwoptpr79-46-9054Pyqbsyh, Swelling, Rash, Other (See Comments)[facility] (20 sources)cephalexin; Translations: [CEPHALEXIN]Propensity to adverse reactions to pkna19-63-3106Goxmutv, Rash, Hives, Unknown, SwellingOhio[facility] (20 sources)moxifloxacin; Translations: [MOXIFLOXACIN]Propensity to adverse reactions to dsfg04-59-6161Pduulwq, Swelling, Rash, Other (See Comments), UnknownOhioHealth (20 sources)tapentadol; Translations: [TAPENTADOL]Propensity to adverse reactions to lbuc72-54-1165QtisgsxVoppZtbxlf (20 sources)polyethylene glycol 3350 / potassium chloride / sodium bicarbonate / sodium chloride / sodium sulfateDrug Mheslnv89-40-5684VjgiThe [facility] Hospital Work Phone: (20 sources)tapentadolDrug Qunujzc93-33-9996Blibz (See Comments)[facility] Work Phone: (3 sources)Cephalexin; Translations: [Keflex]Drug Kexoelp31-81-6906Amh [facility] Repository (3 sources)moxifloxacin; Translations: [Avelox]Drug Ovyedco67-14-6039Wac [facility] Repository (3 sources)tapentadol; Translations: [Nucynta]Drug Mnslhpw11-47-5755Kvr [facility] Repository (1 source)Bacitracin / Neomycin / Polymyxin BDrug Pqfxqay56-02-7326HbeA[facility] (1 source)Calcium oxideDrug Slqlucw70-63-5142XliAdena Regional Medical Center Repository (1 source)POLYETHYLENE GLYCOL 3350Drug Ioyvopx09-25-2483Ool [facility] Repository (1 source)Sulfamethoxazole / TrimethoprimDrug Llkhbmw47-53-3359Tyx [facility] Repository (1 source)fentaNYL; Translations: [fentaNYL][facility] (1 source)POLYETHYLENE GLYCOL 3350 / Potassium Chloride / Sodium Bicarbonate / Sodium Chloride / sodium sulfate; Translations: [GoLYTELY]Drug AllergyGood [facility] Rep[facility] (1 source)Shellfish; Translations: [shellfish]Propensity to adverse reactions (disorder)[facility] (1 source)Shrimp product; Translations: [Shrimp]Propensity to adverse reactions (disorder)[facility] (14 sources)Tapentadol hydrochlorideAllergy to vjtarganl65-85-5773ZglbabxOCVV [facility] Medications Current Medications MedicationDrug Class(es)DatesSig (Normalized)Sig (Original)acetaminophen 300 mg / codeine phosphate 30 mg oral tablet (20 sources)Opioid AgonistStart: 01-15-2017 End: 20-81-2606mdiw 1 tablet by mouth twice daily as needed for pain acetaminophen-codeine 300-30 MG Tab per tablet TAKE 1 TABLET BY MOUTH TWICE A DAY NEEDED FOR PAIN 0 01/15/2017 ActiveStart: 46-08-4176wnbrqfgigefox-codeine 300-30 MG Tab per tablet hasn't used for a while patient reports 0 01/15/2017 Activeacetaminophen-codeine (TYLENOL #3) 300-30 mg per tablet every 6 (six) hours as needed. 0 ActiveacetaZOLAMIDE 250 mg oral tablet (6 sources)Carbonic Anhydrase InhibitorStart: 04-24-2018 End: 52-40-4616pqzh 1 tablet by mouth twice dailyacetaZOLAMIDE (DIAMOX) 250 MG tablet Take 250 mg by mouth 2 times daily 0 04/24/2018 06/28/2021 Discontinued (LIST CLEANUP)albuterol 0.83 mg/ml inhalation solution (14 sources)beta2-Adrenergic Agonistalbuterol (2.5 MG/3ML) 0.083% nebulizer solution Take 3 mL by nebulization every 4 (four) hours if needed Active amitriptyline hydrochloride 25 mg oral tablet (20 sources)Tricyclic Antidepressant End: 67-64-9430nkygayltxcrlg (Elavil) 25 MG tablet Take 1 tablet as needed by oral route. Activeaspirin 325 mg oral tablet (20 sources)Nonsteroidal Anti-inflammatory DrugStart: 11-22-2024 End: 80-95-6893kuof 1 tablet by mouth once dailyaspirin 325 MG tablet Indications: Primary hypertension Take 1 tablet (325 mg) by mouth Daily 30 tab let 11 11/22/2024 11/22/2025 ActiveStart: 24-50-7056aovn 81 mg by mouth once daily81 mg, Oral, DAILY, First dose on 06/30/21 at 0900, Until Discontinued Start: 06-28-2021 End: 23-08-4581tdyptux chewable tablet 81 mgStart: 04-07-2017 End: 75-18-2814qubv 1 tablet by mouth once dailyaspirin 325 MG tablet Take 325 mg by mouth daily 0 04/07/2017 ActiveStart: 09-04-7227ukiu 1 tablet by mouth once dailyaspirin 325 MG EC tablet Take 1 (one) tablet (325 mg total) by mouth daily. 60 tablet 5 04/07/2017 Active End: 80-39-4726njtr 1 tablet by mouth once dailyaspirin 81 MG EC tablet Take 81 mg by mouth daily. 04/07/2017 Discontinuedbisacodyl 10 mg rectal suppository (3 sources)Stimulant LaxativeStart: 07-29-2021 End: 82-66-1992Bmqof: 78-87-2184qcol 5 mg by mouth once daily as needed5 mg, Oral, DAILY PRN, Starting on Nohemy 06/28/21 at 2107, Until Discontinued, Constipation First linetherapy for constipation.brimonidine tartrate 2 mg/ml ophthalmic solution (20 sources)alpha-Adrenergic AgonistStart: 68-66-1446gqbncshxgsz (AlphaGAN P) 0.2 % ophthalmic solution 05/11/2024 ActiveStart: 36-60-7487scrf 1 drop(s) into the eye(s) twice dailybrimonidine (ALPHAGAN P) 0.15 % ophthalmic solution Apply 1 drop to eye 2 times daily Left eye 0 11/15/2019 ActiveStart: 36-60-2050kztx 1 drop(s) into the eye(s) twice dailybrimonidine (ALPHAGAN) 0.15 % ophthalmic solution Administer 1 drop into the left eye 2 (two) timesa day . 0 11/15/2019 Activecalcium carbonate 1000 mg chewable tablet (1 source)Start: 12-07-2024 End: 07-10-3442vrkbmbv carbonate (Tums Ultra) 1000 MG chewable tablet Indications: Hypocalcemia Chew 1 tablet (1,000 mg) at bedtime 30 tablet 11 12/07/2024 12/07/2025 Activecalcium carbonate 600 mg / cholecalciferol 0.01 mg oral tablet (6 sources)Vitamin DStart: 35-80-5403Ziuda: 01-70-3298dfrl 2 tablets by mouth once dailycalcium carbonate-vitamin D3 (CALTRATE) 600-400 MG-UNIT TABS per tab Take 2 tablets by mouth daily 60 tablet 1 07/20/2021 Activecarvedilol 12.5 mg oral tablet (20 sources)alpha-Adrenergic Chemo, beta-Adrenergic BlockerStart: 07-17-2023 End: 96-09-0043agkh 1 tablet by mouth in the morningcarvedilol (Coreg) 12.5 MG tablet Indications: Primary hypertension Take 1 tablet (12.5 mg) by mouth in the morning and 1 tablet (12.5 mg) before bedtime. 60 tablet 11 11/22/2024 11/17/2025 ActiveStart: 06-29-2021 End: 68-08-1174lart 1 dose by mouth once25 mg, Oral, ONCE, 1 dose, On Fri06/29/21 at 0200 Administer with food to minimize the risk of orthostatic hypotensionStart: 06-29-2021 End: 27-87-2248vjmh 25 mg by mouth twice daily at fkckigzm45 mg, Oral, 2 TIMES DAILY WITH MEALS, First dose on 07/15/21 at 0130, Until Discontinued Adminis ter with food to minimize the risk of orthostatic hypotensioncarvedilol (COREG) 25 MG tablet Take 12.5 mg by mouth 2 times daily (with meals) 0 Active chlordiazePOXIDE hydrochloride 5 mg oral capsule (3 sources)BenzodiazepineStart: 08-08-2021 End: 30-24-7715Mndun: 08-05-2021 End: 08-17-3283yjsj 10 mg by mouth three times daily10 mg, Oral, 3 TIMES DAILY, First dose on 08/05/21 at 1400, Until Discontinuedcholecalciferol 0.125 mg oral capsule (9 sources)Vitamin DStart: 03-05-2018 End: 67-42-1340wefg 1 capsule by mouth once dailyCholecalciferol (VITAMIN D3) 5000 units CAPS Take 5,000 Units by mouth daily 0 03/05/2018 06/28/2021 Discontinued (LIST CLEANUP)Continuous Blood Gluc Sensor (FreeStyle Juanpablo 14 Day Sensor) Misc (7 sources)Start: 10-08-6246[place] Blood Gluc Sensor (FreeStyle Juanpablo 14 Day Sensor) Misc Inject 2 Each under the skin every 14 days. 2 Each 3 03/16/2021 ActiveStart: 64-92-4631Zufikognri Blood Gluc Sensor (FreeStyle Juanpablo 14 Day Sensor) Misc Inject 2 Each under the skin every 14 days. 2 Each 3 08/14/2020 Lrrplz614 ml dexmedetomidine 0.004 mg/ml injection (2 sources)Central alpha-2 Adrenergic AgonistStart: 79-05-5756kdmynevpuen 20 mg/ml / timolol 5 mg/ml ophthalmic solution (20 sources)Carbonic Anhydrase Inhibitor, beta-Adrenergic BlockerStart: 09-34-8241ftqw 1 drop(s) into the eye(s) twice dailydorzolamide-timolol 22.3-6.8 MG/ML Solution ophthalmic solution Place 1 drop in both eyes 2 times daily. 10 mL 0 01/15/2021 ActiveStart: 48-66-3824vylu 1 drop(s) into the eye(s) twice dailydorzolamide-timolol 22.3-6.8 MG/ML Solution ophthalmic solution Place 1 drop in both eyes 2 times daily. Generic. 90 day supply. 10 mL 3 09/04/2020 ActiveStart: 82-07-9255Twelg: 72-40-4622bwuc 1 drop(s) into the eye(s) twice dailydorzolamide-timolol (COSOPT) 22.3-6.8 MG/ML ophthalmic solution Place 1 drop into the right eye 2 times daily 0 08/08/2017 ActiveStart: 08-08-2017 End: 37-85-4203rrck 1 drop(s) into the eye(s) twice dailydorzolamide-timoloL (COSOPT) 22.3-6.8 mg/mL ophthalmic solution Apply 1 drop to eye 2 (two) times a day . 0 08/08/2017 Activedoxycycline monohydrate 100 mg oral capsule (20 sources)Tetracycline-class DrugStart: 03-91-1219dcqt 1 capsule by mouth twice dailydoxycycline (Monodox) 100 MG capsule Indications: Traumatic ulcer of left foot, unspecified ulcer stage (HCC) Take 1 capsule, by mouth, bid x 7 days 14 capsule 08/27/2024 ActiveStart: 59-90-4942vylzxszossk (Vibramycin) 100 MG capsule 04/15/2024 ActiveStart: 07-09-2021 End: 50-07-0590Hmofw: 05-01-2021 End: 19-63-3817zndt 1 capsule by mouth twice dailydoxycycline hyclate (VIBRAMYCIN) 100 MG capsule Take 1 (one) capsule (100 mg total) by mouth 2 (two) times a day for 7 days . 14 capsule 0 05/01/2021 05/08/2021 ActiveStart: 12-06-2020 End: 46-80-1244dsxu 1 capsule by mouth twice dailydoxycycline hyclate (VIBRAMYCIN) 100 MG capsule Take 1 (one) capsule (100 mg total) by mouth 2 (two) times a day for 7 days . 14 capsule 0 12/06/2020 12/13/2020 ExpiredStart: 05-29-2018 End: 17-46-3600osof 1 tablet by mouth twice dailydoxycycline hyclate (VIBRA- TABS) 100 MG tablet Take 1 (one) tablet (100 mg total) by mouth 2 (two) times a day for 7 days . 14 tablet 0 05/29/2018 06/05/2018 Active End: 76-01-5774HFEZKNQVSFR PO Take by mouth. 01/05/2018 DiscontinuedDULoxetine 60 mg delayed release oral capsule (15 sources)Serotonin and Norepinephrine Reuptake InhibitorStart: 12-07-2024 End: 74-01-3695yjha 1 capsule by mouth once dailyDULoxetine (Cymbalta) [address] capsule Indications: Current mild episode of major depressive disorder, unspecified whether recurrent Take 1 capsule (60 mg) by mouth Daily 30 capsule 11 12/07/2024 12/02/2025 Activeezetimibe 10 mg oral tablet (7 sources)Dietary Cholesterol Absorption InhibitorStart: 27-87-1567wmgx 1 tablet by mouth once dailyezetimibe (Zetia) 10 MG tablet Take 1 tablet by mouth daily. 30 tablet 3 03/20/2021 ActiveStart: 90-68-2373qsrk 1 tablet by mouth once dailyezetimibe (Zetia) 10 MG tablet Take 1 tablet by mouth daily. 30 tablet 3 05/18/2020 Activefamotidine 20 mg oral tablet (6 sources)Histamine-2 Receptor AntagonistStart: 08-90-1911ktpduotzpm (PEPCID) 20 MG tablet 1 tablet by Per NG tube route 2 times daily 60 tablet 3 08/10/2021 ActiveStart: 91-51-8189Rwtiq: 43-13-114338 mg, Per NG tube, 2 TIMES DAILY, First dose on Nohemy 08/02/21 at 2100, Until Discontinued IV to PO change per P&T policy ferrous sulfate 325 mg delayed release oral tablet (5 sources)Start: 11-22-2024 End: 87-62-5223fgne 1 tablet by mouth at mealtimeferrous sulfate (Fe Tabs) 325 (65 Fe) MG EC tablet Indications: Other iron deficiency anemia Take 1tablet (325 mg) by mouth in the morning. Take with meals. Do not crush, chew, or split. 30 tablet 11 11/22/2024 11/22/2025 Activefluocinonide 0.0005 mg/mg topical ointment (3 sources)CorticosteroidStart: 08-19-2023 End: 17-12-1630ctxktxwqyrmt (Lidex) 0.05 % ointment Indications: Other atopic dermatitis Apply topically 2 (two) times a day as needed for rash 180 g 11 08/19/2023 08/18/2024 ActiveFreestyle Juanpablo 14 Day [place] (5 sources)Start: 01-05-2018 End: 22-91-9176Rloayliok Juanpablo 14 Day Sensor Misc (6 sources)Start: 09-42-7803Wnjfk: 01-05-2018 End: 27-04-1186Mhutx: 01-05-2018 End: 90-95-0537ihzfkOHHI 10 mg oral tablet (20 sources)SulfonylureaglipiZIDE (Glucotrol) 10 MG tablet 1 (one) time each day at the same time Active End: 58-90-3201jymo 1 tablet by mouth twice daily before mealtimeglipiZIDE (GLUCOTROL) 5 MG tablet Take 5 mg by mouth 2 times daily (before meals) 0 06/28/2021 Discontinued (LIST CLEANUP)12 hr guaiFENesin 600 mg extended release oral tablet (2 sources)Start: 11-30-2024 End: 57-38-2567wqiv 2 tablets by mouth in the morning, then take 2 tablets by mouth every twelve hours at bedtimeguaiFENesin (Mucinex) 600 MG 12 hr tablet Indications: Cough, unspecified type Take 2 tablets (1,200 mg) by mouth in the morning and 2 tablets (1,200 mg) before bedtime. Do not crush, chew, or split. 120 tablet 11 11/30/2024 11/30/2025 Activehydrocortisone 10 mg/ml rectal cream (4 sources)Corticosteroidhydrocortisone 1 % cream Apply topically 2 times daily as needed Apply topically 2 times daily. Rash on arms 0 Activehydrocortisone 1 % cream Apply topically 2 times daily as needed Apply topically 2 times daily. Rash on arms 0 Mirbpb605 ml immunoglobulin g, human 100 mg/ml injection (14 sources)Human Immunoglobulin Gimmune globulin, human, 20 GM/200ML 15 g by Intravenous route every 14 days. 15 grams 0 Activeimmune globulin, human, 20 GM/200ML Solution 400 mg/kg by Intravenous route As directed PRN. 0 Activeimmune globulin, human, 20 GM/200ML 15 g by Intravenous route every 21 days. 15 grams 0 Active3 ml insulin degludec 100 unt/ml pen injector (20 sources)Insulin AnalogStart: 53-29-2440Hnztlnk Degludec (Tresiba FlexTouch) 100 UNIT/ML Solution Pen-injector injection Indications: Type 1 diabetes mellitus with diabetic neuropathy Inject 25 Units under the skin at bedtime. 900 mL 3 03/20/2021 ActiveStart: 06-23-2020 End: 11-63-7320Yeuczqh Degludec (Tresiba FlexTouch) 100 UNIT/ML Solution Pen- injector injection 3 samples given--Lot [id number], exp 10/2021 3 Prefilled Pen/Syringe 0 06/23/2020 ActiveStart: 85-70-8561Ngqdvcq Degludec (Tresiba FlexTouch) 100 UNIT/ML Solution Pen-injector injection Indications: Type 1 diabetes mellitus with diabetic neuropathy Inject 25 Units under the skin at bedtime. 3 Prefilled Pen/Syringe 4 07/21/2019 ActiveStart: 05-25-2018 End: 65-23-2263Taayewn Degludec (TRESIBA FLEXTOUCH) 100 UNIT/ML SOPN Inject 300 Units into the skin nightly 0 05/25/2018 06/28/2021 Discontinued (LIST CLEANUP) Start: 48-81-3054Fvezhaj Degludec (TRESIBA FLEXTOUCH) 100 UNIT/ML Solution Pen- injector injection Inject 20 Units under the skin at bedtime. 3 Prefilled Pen/Syringe 4 01/19/2018 Activeinsulin degludec (Tresiba FlexTouch) 100 UNIT/ML injection Inject by subcutaneous route. Activeinsulin degludec (Tresiba FlexTouch U-100) 100 unit/mL (3 mL) InPn Inject under the skin . 0 Activeinsulin detemir (4 sources)Insulin AnalogInsulin Detemir (LEVEMIR SC) Inject 12 Units into the skin at bedtime 0 Active3 ml insulin glargine 100 unt/ml pen injector (20 sources)Insulin AnalogStart: 64-81-0291Jgzniuhf KwikPen 100 UNIT/ML pen 08/15/2023 ActiveStart: 77-70-9311iggdvr 10 [IU] by subcutaneous injection once daily10 Units, SubCUTAneous, NIGHTLY, First dose (after last modification) on Fri08/10/21 at 2100, UntilDiscontinuedStart: 08-08-2021 End: 05-37-8251esxtev 5 [IU] by subcutaneous injection once daily5 Units, SubCUTAneous, NIGHTLY, First dose on Fri08/08/21 at 2100, Until Discontinued Start: 08-04-2021 End: 87-35-4210itoaoc 20 [IU] by subcutaneous injection once daily20 Units, SubCUTAneous, NIGHTLY, First dose (after last modification) on Fri08/04/21 at 2100, UntilDiscontinuedStart: 08-03-2021 End: 42-63-7170tmpzyx 8 [IU] by subcutaneous injection once daily8 Units, SubCUTAneous, NIGHTLY, First dose on Fri08/03/21 at 2100, Until Discontinued Start: 06-30-2021 End: 84-90-2567llkrzd 16 [IU] by subcutaneous injection once daily16 Units, SubCUTAneous, NIGHTLY, First dose on Fri07/21/21 at 2100, Until Discontinued Start: 06-29-2021 End: 21-88-6643lecwir 10 [IU] by subcutaneous injection once daily10 Units, SubCUTAneous, NIGHTLY, First dose (after last modification) on Fri06/29/21 at 0200, UntilDiscontinuedinsulin glargine (LANTUS) 100 UNIT/ML injection vial Inject 16 Units into the skin nightly 0 Activeinsulin lispro (HUMALOG KWIKPEN) 100 UNIT/ML pen (1 source)insulin lispro (HUMALOG KWIKPEN) 100 UNIT/ML pen Inject 30 Units into the skin 3 times daily (before meals) Sliding scale coverage- Use less than 30 units with sliding scale 0 Activelidocaine 0.04 mg/mg medicated patch (5 sources)Antiarrhythmic, Amide Local AnestheticStart: 80-67-9113gtpvj 1 dose transdermal route every twelve hours1 patch, TransDERmal, Administer over 12 Hours, DAILY, First dose (after last modification) on Fri07/03/21 at 0030 Apply patch to left posterior neck. 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 Max of 12 hours of application then remove. 30 patch 1 3992Nxecya8 ml liraglutide 6 mg/ml pen injector (6 sources)GLP-1 Receptor AgonistStart: 77-08-5943JAYPSQA 18 MG/3ML Solution Pen-injector injection INJECT 1.8 MG SUBCUTANEOUSLY ONCE DAILY 3 Syringe3 10/09/2017 Active1 ml LORazepam 2 mg/ml injection (6 sources)BenzodiazepineStart: 08-10-2021 End: 79-69-6728Hwgve: 07-28-2021 End: dose, Starting on 07/28/21 at 0203, Until 07/28/21 at 0206 Abner, Helen A: jayyt overrideAndzeb Helen A: miguelmaddiet overrideStart: mg, IntraVENous, EVERY 4 HOURS PRN, Starting on 07/28/21 at 0201, Until Discontinued, AnxietyStart: 07-27-2021 End: mg, IntraVENous, ONCE, 1 dose, On Fri07/27/21 at 2045Start: 07-24-2021 End: .5 mg, IntraVENous, ONCE, 1 dose, On Fri07/24/21 at 1015Start: 07-04-2021 End: .5 mg, IntraVENous, ONCE, 1 dose, On Fri07/04/21 at 1845 meclizine hydrochloride 25 mg oral tablet (14 sources)AntiemeticStart: 11-27-5379mbgnirybl (Antivert) 25 MG tablet 04/15/2024 Active1 ml morphine sulfate 2 mg/ml cartridge (1 source)Opioid AgonistStart: 08-48-5749gkuv 1 mg by mouth every four hours as needed1 mg, IntraVENous, EVERY 4 HOURS PRN, Starting on Nohemy 07/05/21 at 1130, Until Discontinued, Pain Severe (7-10) If oral and IV narcotics ordered, use oral first and only use IV if oral is ineffective or cannot take oral. Do Not give oral and IV within 1 hour of each other unless spe cifically ordered.Multiple Vitamin (MULTI-DAY PO) (13 sources)take 1 tablet by mouth onceMultiple Vitamin (MULTI-DAY PO) take 1 tablet by mouth daily.. 0 Activetake 1 tablet by mouth onceMultiple Vitamin (MULTI-DAY PO) take 1 tablet by mouth daily.. ActiveMultiple Vitamins-Minerals (MULTIVITAMIN ADULT PO) (7 sources)take 1 tablet by mouth once dailyMultiple Vitamins-Minerals (MULTIVITAMIN ADULT PO) Take 1 tablet by mouth daily 0 ActiveMultiple Vitamins- Minerals (multivitamin with minerals) tablet (2 sources)Start: 11-30-2024 End: 48-18-6041wvkq 1 tablet by mouth once dailyMultiple Vitamins-Minerals (multivitamin with minerals) tablet Indications: Other iron deficiency anemia Take 1 tablet by mouth Daily 30 tablet 11 11/30/2024 11/30/2025 Active MULTIVITAMIN ORAL (20 sources)MULTIVITAMIN ORAL daily. 0 ActiveMULTIVITAMIN ORAL daily. Active mupirocin 0.02 mg/mg topical ointment (20 sources)RNA Synthetase Inhibitor AntibacterialStart: 05-29-2018 End: 63-64-4626leomqljkv (BACTROBAN) 2 % ointment Apply topically 3 (three) times a day for 7 days . 30 g 0 05/01/2021 05/08/2021 Activenafcillin 2000 mg injection (1 source)Penicillin-class AntibacterialStart: 08-10-2021 End: 10-43-9505zwuailvlh infusion (1 source)Start: 07-09-2021 End: 56-86-7798wlyoclmye infusion Infuse 2,000 mg intravenously every 4 hours Till 08/20/21 Then stop iv AB and pullthe line Cbc diff and creat q MWF while on this AB Compound per protocol 504 g 0 07/09/2021 08/20/2021 Activenaproxen 500 mg oral tablet (6 sources)Nonsteroidal Anti-inflammatory DrugStart: 25-05-9428usew 1 tablet by mouth three times daily at mealtimenaproxen 500 MG Tab tablet Take 1 tablet by mouth 3 times daily with meals. 20 tablet 0 12/15/2017 Activenetarsudil 0.2 mg/ml ophthalmic solution (3 sources)Rho Kinase InhibitorStart: 47-87-3814fend 1 drop(s) into the eye(s) at bedtimeNetarsudil Dimesylate (Rhopressa) 0.02 % Solution Place 1 drop in both eyes at bedtime. 5 mL 0 02/15/2021 ActiveStart: 70-42-4934Cxgzaorvtz Dimesylate (Rhopressa) 0.02 % Solution Samples of this drug were given to the patient. 5mL 0 10/11/2020 ActiveStart: 11-21-2017 End: 96-95-4787hwsa 1 drop(s) into the eye(s) at bedtimeNetarsudil Dimesylate (RHOPRESSA) 0.02 % Solution Place 1 drop in both eyes at bedtime. 1 Bottle 0 1 01/07/2018 Discontinuednetarsudil mesylate 0.285 mg/ml ophthalmic solution (4 sources)Start: 66-86-5054ipmy 1 drop(s) into the eye(s) at bedtimeNetarsudil Dimesylate (RHOPRESSA) 0.02 % Solution Place 1 drop in both eyes at bedtime. 1 Bottle 0 11/21/2017 ActiveNONFORMULARY (4 sources)NONFORMULARY Tube feedings per ng tube at 65/hr 0 Activenortriptyline 25 mg oral capsule (6 sources)Tricyclic AntidepressantStart: 44-86-5795bepdroxmepzxu 25 MG Cap capsule Week 1 - 1 tab QHS. Week 2 - 2 tabs QHS. Week 3 onwards - 3 tabs QHS 90 capsule 5 12/24/2017 Activeomeprazole 40 mg delayed release oral capsule (14 sources)Proton Pump InhibitorStart: 22-57-3007izolrzinid (PriLOSEC) [address] capsule 08/08/2023 ActiveoxyCODONE hydrochloride 5 mg oral tablet (2 sources)Opioid AgonistStart: 08-01-2021 End: 24-41-7053qckxzcemoikr 30 mg oral tablet (6 sources)Peroxisome Proliferator Receptor alpha Agonist, Peroxisome Proliferator Receptor gamma Agonist, ThiazolidinedioneStart: 20-48-1202iaoy 1 tablet by mouth once dailypioglitazone 30 MG Tab tablet Indications: Type 2 diabetes mellitus with diabetic polyneuropathy, without long-term current use of insulin Take 1 tablet by mouth daily. 90 tablet 1 07/21/2017 Activepotassium chloride 20 meq extended release oral tablet (20 sources)Start: 11-23-2024 End: 55-67-6982rwlh 1 tablet by mouth once dailypotassium chloride CR (K-Tab) 20 MEQ ER tablet Indications: Hypokalemia Take 1 tablet (20 mEq) by mouth Daily Do not crush, chew, or split. 360 tablet 11/23/2024 11/23/2025 ActiveStart: 08-05-2021 End: mEq, Oral, ONCE, 1 dose, On 08/05/21 at 0815 Do not crush, chew, or suck on tablet. Tablet may also be broken in half and each half swallowed separately.Start: 07-27-2021 End: mEq, IntraVENous, EVERY HOUR, 2 doses, First dose on Fri07/27/21 at 0900, Last dose on Fri07/27/21 at 1000, at 50 mL/hrStart: 07-25-2021 End: mEq, IntraVENous, EVERY HOUR, 2 doses, First dose on Fri07/26/21 at 0700, Last dose on Fri07/26/21at 0800, at 50 mL/hrStart: 07-14-2021 End: 24-27-5766hmmdaklyi chloride 10 mEq/100 mL IVPB (Peripheral Line)Start: 07-08-2021 End: mEq, IntraVENous, EVERY HOUR, 4 doses, First dose on Fri07/08/21 at 0800, Last dose on Fri07/08/21 at 1100, at 100 mL/hrStart: 07-06-2021 End: 17-22-341581 mEq, IntraVENous, EVERY HOUR, 4 doses, First dose on Fri07/06/21 at 1000, Last dose on Fri07/06/21 at 1300, at 100 mL/hrStart: 07-05-2021 10 mEq, IntraVENous, PRN, Starting on Fri07/05/21 at 1103, Until Discontinued, at 100 mL/hr, Potassium Replacement K Lab Replacement Action 2.7 to 3.0 10 mEq IVPB x 6 doses (60 mEq Total) Under 2.7& nbsp; CALL PROVIDER and administer 10 mEq IVPB x 6 doses (60 mEq Total) Infuse at 10 mEq/hr. Repeat Potassium lab 1 hour after final administration. Protocol not for use in patients with CrCl less than 30 mL/min.Start: 07-01-2021 End: mEq, IntraVENous, EVERY HOUR, 4 doses, First dose on Fri07/03/21 at 0700, Last dose on Fri07/03/21 at 1000, at 100 mL/hrStart: 06-29-2021 End: mEq, IntraVENous, 2 times daily, 1 dose, First dose (after last modification) on Fri06/29/21 at 1400, at 100 mL/hrQUEtiapine 25 mg oral tablet (7 sources)Atypical AntipsychoticStart: 95-85-8825nkgp 1 tablet by mouth once dailyQUEtiapine (SEROQUEL) 25 MG tablet Take 1 tablet by mouth nightly 60 tablet 3 08/10/2021 ActiveStart: 08-07-2021 End: 56-88-3475ocon 50 mg by mouth once daily50 mg, Oral, NIGHTLY, First dose (after last modification) on Fri08/07/21 at 2100, Until Tpqqkpljcvhi0711 ml sodium chloride 9 mg/ml injection (20 sources)Start: 37-63-0384XsxqlWGBoic, at 10 mL/hr, CONTINUOUS, Starting on Fri07/29/21 at 0830Start: 07-26-2021 End: mL, IntraVENous, PRN, Starting on Nohemy 07/26/21 at 1744, Until Nohemy [...] mL Midline or Central Line = 20 mL/lumenStart: 07-24-2021 End: 02-19-4918NowarNRMtzr, at 10 mL/hr, CONTINUOUS, Starting on Fri07/25/21 at 2145Start: 07-18-2021 End: ,000 mL (16.5 mL/kg), IntraVENous, at 1,935.5 mL/hr, Administer over 31 Minutes, ONCE, On Fri07/18/21 at 1300, For 1 doseStart: 07-14-2021 End: 34-30-3508khci 1 dose intravenously twice daily5-40 mL, IntraVENous, EVERY 12 HOURS SCHEDULED (2 times per day), First dose on 07/14/21 at 2100, Until Discontinued For Line Patency: Peripheral IV = 5 mL; Midline or Central Line = 10 mL/lumen. If following IV push medication, administer flush at same rate as the IV push. Flush volume is determined by type of infusion therapy being given. For non-viscoussolutions use: Peripheral IV = 5 mL Midline or Central Line = 10 mL/lumen For viscous solutions (i.e. blood components, parenteral nutrition, contrast media, or after obtaining blood sample) use: Peripheral IV = 10 mL Midline or Central Line = 20 mL/lumenStart: 07-14-2021 End: 31-83-6598MwyciHNNvdz, at 75 mL/hr, CONTINUOUS, Starting on 07/14/21 at 1700 For piggyback infusion, administer at same rate as piggyback for a total of 25 mL. Enter 25 mL into dose field and piggyback rateinto rate field of order. If piggyback is infusing at a rate less than 100 mL/hr, enter 25mL into dose field and 100 mL/hr into rate field of order. For KVO fluids, enter rate of 20 mL/hr or less into rate field of order.Start: 67-18-9772wdgf 5- 40 mL intravenously once as needed5-40 mL, IntraVENous, PRN, Starting on 07/14/21 at 1639, Until Discontinued, Line Care, After every IV line use For Line Patency: Peripheral IV = 5 mL; Midline or Central Line = 10 mL/lumen.&nb sp; If following IV push medication, administer flush [...] mL Midline or Central Line = 20 mL/lumenStart: 04-04-6074JrdbwNRRboa, at 5-250 mL/hr, PRN, if patient receiving piggyback infusions and maintenance fluids are not ordered OR KVO fluids to protect IV site / prevent frequent line interruptions/ long duration, Starting on Fri07/06/21 at 2217 For piggyback infusion, administer at same rate as piggyback for atotal of 25 mL. Enter 25 mL into dose field and piggyback rate into rate field of order. If piggyback is infusing at a rate less than 100 mL/hr, enter 25 mL into dose field and 100 mL/hr into rate field of order. For KVO fluids, enter rate of 20 mL/hr or less into rate field of order.Start: mL, IntraVENous, PRN, Starting on Fri07/05/21 at 1732, Until [...] mL Midline or Central Line = 20 mL/lumenStart: 06-29-2021 End: 60-50-7986VoraeADMbtr, at 100 mL/hr, CONTINUOUS, Starting on Fri06/29/21 at 1400Start: 03-18-6392fxgj 1 dose intravenously twice daily5-40 mL, IntraVENous, EVERY 12 HOURS SCHEDULED (2 times per day), First dose on Fri07/06/21 at 2245, Until Discontinued For Line Patency: Peripheral IV = 5 mL; Midline or Central Line = 10 mL/lumen. If following IV push medication, administer flush at same rate as the IV push. Flush volume is determined by type of infusion therapy being given. For non-viscoussolutions use: Peripheral IV = 5 mL Midline or Central Line = 10 mL/lumen&nbsp ; For viscous solutions (i.e. blood components, parenteral nutrition, contrast media, or after obtaining blood sample) use: Peripheral IV = 10 mL Midline or Central Line = 20 mL/lumenStart: 29-71-9323fokr 5-40 mL intravenously once as needed5-40 mL, IntraVENous, PRN, Starting on Nohemy 06/28/21 at 2107, Until Discontinued, Line Care, After every IV line use For Line Patency: Peripheral IV = 5 mL; Midline or Central Line = 10 mL/lumen.&nb sp; If following IV push medication, administer flush [...] mL Midline or Central Line = 20 mL/lumenStart: 06-28-2021 End: .9 % sodium chloride bolusSodium polystyrene sulfonate (4 sources)Sodium Polystyrene Sulfonate (KAYEXALATE PO) Take by mouth Given for potassium 5.8 on 08/15/21 0 Activesucralfate 100 mg/ml oral suspension (14 sources)Aluminum ComplexStart: 28-99-9785pcbxryrzgw (Carafate) 1 GM/10ML suspension 08/15/2023 Activesulfamethoxazole 800 mg / trimethoprim 160 mg oral tablet (3 sources)Dihydrofolate Reductase Inhibitor Antibacterial, Sulfonamide AntimicrobialStart: 09-14-2020 End: 26-93-9502uanp 1 tablet by mouth twice dailysulfamethoxazole-trimethoprim 800-160 MG per tablet TAKE 1 TABLET BY MOUTH TWICE DAILY FOR 10 DAYS 0 09/14/2020 ActiveTegaderm Contact Layer 3 X4 Pads (1 source)Start: 07-17-0943Hnbfz Pads & Dressings (TEGADERM CONTACT LAYER) 3 X4 Pads To be used with Juanpablo Sensors every 14 days. 2 Each 4 01/19/2018 Active thioctic acid 300 mg oral tablet (15 sources)Start: 12-24-2017 End: 20-35-8076ymnr 1 tablet by mouth twice dailyAlpha-Lipoic Acid 300 MG TABS Take 300 mg by mouth 2 times daily 0 12/24/2017 06/28/2021 Discontinued (LIST CLEANUP)levothyroxine sodium 0.1 mg oral tablet (20 sources)l-ThyroxineStart: 39-27-1333mbdq 1 tablet by mouth once daily levothyroxine (SYNTHROID) 100 MCG tablet Take 1 tablet by mouth Daily 30 tablet 3 07/11/2021 ActiveStart: 07-01-2021 End: 91-12-1050dzap 100 ug by mouth once gqaut455 mcg, Oral, DAILY, First dose on Fri07/09/21 at 0900, Until Discontinued Tube feeding (TF) interaction, obtain physician order to manage, recommend holding TF for 30 minutes before and after dose.Start: 77-42-3795zmxr 1 tablet by mouth once dailylevothyroxine 50 MCG tablet Take 1 tablet by mouth daily. 90 tablet 2 03/20/2021 ActiveStart: 10-16-2017 End: 66-09-1221yqwb 1 tablet by mouth every other daylevothyroxine 112 MCG Tab tablet Indications: Acquired hypothyroidism Take 1 tablet by mouth every other day. 15 tablet 4 10/16/2017 ActiveStart: 86-71-6738omtv 1 tablet by mouth every other daylevothyroxine 125 MCG Tab tablet Indications: Acquired hypothyroidism Take 1 tablet by mouth every other day. 15 tablet 4 10/16/2017 Activetake 1 capsule by mouth once dailylevothyroxine (Tirosint) 112 MCG capsule Take 1 capsule every day by oral route. Activetake 1 tablet by mouth once daily levothyroxine (SYNTHROID) 112 MCG tablet Take 112 mcg by mouth Daily 0 Active topiramate 25 mg oral tablet (6 sources)Start: 03-21-0157kaao 1 tablet by mouth twice dailytopiramate 25 MG Tab tablet Take 1 tablet by mouth 2 times daily. 120 tablet 5 12/24/2017 Active traMADol hydrochloride 50 mg oral tablet (14 sources)Opioid AgonistStart: 59-90-4832jhxOWPrh (Ultram) 50 MG tablet 11/04/2023 Activetriamcinolone acetonide 1 mg/ml topical cream (10 sources)CorticosteroidStart: 45-98-2920uxcwatlyeaprk (Kenalog) 0.1 % cream Indications: Other atopic dermatitis Apply (1g) to the affectedareas (feet), up to twice a day when flared, do not use one the face, groin, or underarms, 30 day supply 80 g 11 08/27/2024 Njtrgh28 hr divalproex sodium 500 mg extended release oral tablet (20 sources)Mood Stabilizer, Anti-epileptic AgentStart: 45-22-3332ufrpbajkej (Depakote ER) 500 MG 24 hr tablet 08/06/2023 ActiveStart: 07-03-2021 End: 38-53-9488chnw 250 mg by mouth twice whmno412 mg, Oral, 2 times daily, First dose on Fri07/16/21 at 1300, Until DiscontinuedVITAMIN B COMPLEX-C CAPS (2 sources)Start: 03-05-2018 End: 57-81-2102calx 1 capsule by mouth once dailyVITAMIN B COMPLEX-C CAPS Take 1 capsule by mouth daily 0 03/05/2018 06/28/2021 Discontinued (LIST CLEANUP) Start: 55-32-2099sibf 1 capsule by mouth once dailyVITAMIN B COMPLEX-C CAPS Take 1 capsule by mouth daily 0 03/05/2018 Activezonisamide 100 mg oral capsule (20 sources)Anti-epileptic Agent End: 31-56-8595bfrh 1 capsule by mouth three times dailyzonisamide (Zonegran) 100 MG capsule Take 1 capsule 3 times a day by oral route. Active Completed/Discontinued Medications MedicationDrug Class(es)DatesSig (Normalized)Sig (Original)acetaminophen 325 mg oral tablet (4 sources)Start: 04-57-0458club 650 mg by mouth every six hours, then take 4000 mg by mouth every twenty-four mg, Oral, EVERY 6 HOURS, First dose on Fri07/06/21 at 2245, Until Discontinued Maximum dose of acetaminophen is 4000 mg from all sources in 24 hours.Start: 05-11-2021 End: 44-10-9205gktoraxavqnxu (TYLENOL) tablet 650 mgStart: 10-03-2020 End: 10-37-0388bwoceznokxgwv (TYLENOL) tablet 650 mgStart: 09-21-2020 End: 44-47-9294yinlpilluklvg (TYLENOL) tablet 650 mgacetaminophen 325 mg / butalbital 50 mg / caffeine 40 mg oral tablet (1 source)Barbiturate, Central Nervous System Stimulant, MethylxanthineStart: 06-30-2021 End: 07-22-8814btay 1 tablet by mouth every four hours as needed for headache1 tablet, Oral, EVERY 4 HOURS PRN, Starting on 06/30/21 at 0918, Until 07/07/21 at 1818, Headaches Maximum dose of acetaminophen is 4000 mg from all sources in 24 hours.acetaminophen 325 mg / HYDROcodone bitartrate 5 mg oral tablet (20 sources)Opioid AgonistStart: 07-14-2021 End: 43-39-4987gbgv 1 tablet by mouth every four hours as needed for pain1 tablet, Oral, EVERY 4 HOURS PRN, Starting on 07/14/21 at 1705, Until 07/24/21 at 1357, Pain Moderate (4-6), Pain Severe (7-10) Maximum dose of acetaminophen is 4000 mg from all sources in 24 hours.Start: 07-14-2021 End: 73-23-7766KNWXOolliaf-acetaminophen (NORCO) 5-325 MG per tablet 1 tablet azithromycin (ZITHROMAX) 500 mg in D5W 250ml Vial Mate (1 source)Start: 07-13-2021 End: 81-98-2711zuayfpefondz (ZITHROMAX) 500 mg in D5W 250ml Vial Matecalcium chloride 0.0014 meq/ml / potassium chloride 0.004 meq/ml / sodium chloride 0.103 meq/ml / sodium lactate 0.028 meq/ml injectable solution (2 sources)Start: 07-25-2021 End: 83-33-4466037 mL, IntraVENous, at 500 mL/hr, Administer over 1 Hours, ONCE, On Fri07/25/21 at 0445, For 1 zccs831 ml calcium gluconate 20 mg/ml injection (2 sources)Start: 08-04-2021 End: ,000 mg, IntraVENous, at 100 mL/hr, Administer over 60 Minutes, ONCE, On 08/04/21 at 0800, For 1 doseStart: 07-29-2021 End: ,000 mg, IntraVENous, at 100 mL/hr, Administer over 60 Minutes, ONCE, On 07/29/21 at 0630, For 1 dosecilostazol 100 mg oral tablet (1 source)Phosphodiesterase 3 Inhibitor End: 96-31-2581alxp 1 tablet by mouth twice dailycilostazol (PLETAL) 100 MG tablet Take 100 mg by mouth 2 (two) times a day. 04/07/2017 Discontinued Ciprofloxacin (1 source)Quinolone Antimicrobial End: 20-13-2634Pcsmmsevjameq (CIPRO PO) Take by mouth. 01/05/2018 Discontinued clindamycin 300 mg oral capsule (3 sources)Lincosamide Antibacterial End: 81-38-5665bwiu 1 capsule by mouth three times dailyclindamycin 300 MG capsule TAKE 1 CAPSULE BY MOUTH THREE TIMES A DAY 0 09/26/2020 Discontinued dexamethasone 6 mg oral tablet (2 sources)CorticosteroidStart: 07-14-2021 End: mg, Oral, DAILY, 10 doses, First dose on 07/14/21 at 1700, Last dose on 07/23/21 at 0900Start: 06-28-2021 End: mg, IntraVENous, EVERY 6 HOURS, First dose on Nohemy 06/28/21 at 1615, For 4 days Please give steroid 15 mins before antibioticsdextromethorphan hydrobromide 2 mg/ml / guaiFENesin 20 mg/ml oral suspension (1 source)Uncompetitive O-ycwzkw-P-aspartate Receptor Antagonist, Sigma-1 AgonistStart: 07-14-2021 End: 03-65-8237bnor 5 mL by mouth every four hours as needed for coughDosing in mg is based on dextromethorphan component. 5 mL, Oral, EVERY 4 HOURS PRN, Starting on Fri07/14/21 at 1639, Until Fri08/07/21 at 0810, CoughdiphenhydrAMINE hydrochloride 25 mg oral tablet (4 sources)Histamine-1 Receptor AntagonistStart: 07-16-2021 End: 31-05-1971wamz 25 mg by mouth every six hours as mg, Oral, EVERY 6 HOURS PRN, Starting on Fri07/16/21 at 1302, Until Fri07/24/21 at 1357, Itching, reaction to abxStart: 05-11-2021 End: 72-92-0509gljpbcttsnPLHYO (BENADRYL) tablet 25 mgStart: 10-03-2020 End: 08-79-3494nxvjlzgrvlBIERU (BENADRYL) tablet 25 mgStart: 09-21-2020 End: 23-69-1313mlvtqhcfcsHRZKR (BENADRYL) tablet 25 mgdocusate sodium 50 mg / sennosides, mcc 8.6 mg oral tablet (1 source)Start: 47-48-1301brni 1 tablet by mouth twice daily1 tablet, Oral, 2 TIMES DAILY, First dose on Fri07/06/21 at 2245, Until Discontinued, Post-opDrug or medicament (substance) (8 sources)Start: 07-25-2021 End: -10 mg/hr (1-10 mL/hr), IntraVENous, CONTINUOUS, Starting on Fri07/25/21 at 1200, Until Fri07/26/21 at 0942 Titrate Infusion? Yes Initial Infusion Dose: 2 mg/hr Goal of Therapy is: RASS of -1 to 0 Contact Provider if: New onset SBP less than 90 mmHg, Patient is receiving the maximum dose and is not a chieving the goal of therapy If Titrate Infusion? is No : Disregard instructions below. If Titrate infusion? is Yes : Titrate in increments of 1 mg/hr no more frequentlythan every 30 minutes to goal of therapy. If patient fails sedation interruption, resume infusion at 50% of previous dose.Start: 07-24-2021 End: 91-40-1575owbq 0.5-4 mL intravenously every zosi70-857 mcg/hr (0.5-4 mL/hr), IntraVENous, CONTINUOUS, Starting on Tu07/24/21 at 1130, Until Nohemy 08/02 at 1138 Titrate Infusion? Yes Initial Infusion [...] interruption, resume infusion at 50% of previous dose.Start: 07-16-2021 End: ,000 mg, IntraVENous, EVERY 8 HOURS, First dose on Fri07/16/21 at 1330, Until Discontinued Antimicrobial Indications: Bone and Joint Infection Administer over 5 mins.Start: 07-09-2021 End: 86-42-7882Qympq: 06-29-2021 End: ,250 mg (19 mg/kg), IntraVENous, at 166.7 mL/hr, Administer over 90 Minutes, ONCE, On Fri06/29/21 at 1000, For 1 dose0.4 ml enoxaparin sodium 100 mg/ml prefilled syringe (2 sources)Low Molecular Weight HeparinStart: 82-69-7207okkmvg 40 mg by subcutaneous injection once daily40 mg, SubCUTAneous, DAILY, First dose (after last modification) on Fri07/14/21 at 1745, Until Discontinued Indication of Use: Prophylaxis-DVT/PEStart: 13-83-3570cgxrbm 40 mg by subcutaneous injection once daily40 mg, SubCUTAneous, DAILY, First dose on Fri06/29/21 at 0900, Until Discontinued Indication of Use: Prophylaxis-DVT/PEfamotidine (PEPCID) 20 mg in sodium chloride (PF) 10 mL injection (1 source)Start: 06-28-2021 End: 37-08-5658iamolvotvq (PEPCID) 20 mg in sodium chloride (PF) 10 mL injection 2 ml fentaNYL 0.05 mg/ml injection (4 sources)Opioid AgonistStart: 08-07-2021 End: 99-60-5507fwmu 50 ug by mouth every hour as needed for pain50 mcg, IntraVENous, EVERY 1 HOUR PRN, Starting on Fri08/07/21 at 0545, Until Fri08/10/21 at 0758, Pain Mild (1-3), Pain Moderate (4-6), Pain Severe (7-10), Per CPOT scale If oral and IV narcotics ordered, use oral first and only use IV if oral is ineffective or cannot take oral. Do Not give oral and IV within 1 hour of each other unless specifically ordered.Start: 07-25-2021 End: 35-62-2041wgss 25 ug by mouth every hour as needed for pain25 mcg, IntraVENous, EVERY 1 HOUR PRN, Starting on Fri07/25/21 at 0821, Until Fri08/07/21 at 0546, Pain Mild (1-3), Pain Moderate (4-6), Pain Severe (7-10), Per CPOT scale If oral and IV narcotics ordered, use oral first and only use IV if oral is ineffective or cannot take oral. Do Not give oral and IV within 1 hour of each other unless specifically ordered.Start: 07-24-2021 End: 21-14-3146bimb 1 dose by mouth once50 mcg, IntraVENous, ONCE, 1 dose, On Fri07/24/21 at 1230 If oral and IV narcotics ordered, use oralfirst and only use IV if oral is ineffective or cannot take oral. Do Not give oral and IV within 1 hour of each other unless specifically ordered.Start: 07-01-2021 End: 98-60-3255ozih 1 dose by mouth once25 mcg, IntraVENous, ONCE, 1 dose, On Fri07/01/21 at 1915 If oral and IV narcotics ordered, use oral first and only use IV if oral is ineffective or cannot take oral. Do Not give oral and IV within 1 hour of each other unless specifically ordered.fluconazole 200 mg oral tablet (4 sources)Azole AntifungalStart: 07-10-2021 End: 28-93-1446Hdajp: 07-02-2021 End: 48-43-3909uelaistjgc 0.1 mg/ml injectable solution (1 source)Benzodiazepine AntagonistStart: 07-24-2021 End: dose, Starting on Fri07/24/21 at 1050, Until Fri07/24/21 at 2259 Jess Ventura: cabinet override Jess Ventura: cabinet overrideFreestyle Juanpablo [place] (5 sources)Start: 04-21-2017 End: 17-91-7067Tqpybrbhpd Blood Gluc Apple Sorter (FREESTYLE JUANPABLO READER) Device Indications: Type 2 diabetes mellitus with diabetic polyneuropathy, without long-term current use of insulin Apply 1 Device topically Asdirected. Use to download subcutaneous glucose monitor data at least four times daily 1 Device 3 04/21/2017 01/07/2018 DiscontinuedStart: 33-34-8406Indzolrswt Blood Gluc Apple Sorter (FREESTYLE JUANPABLO READER) Device Indications: Type 2 diabetes mellitus with diabetic polyneuropathy, without long-term current use of insulin Apply 1 Device topically Asdirected. Use to download subcutaneous glucose monitor data at least four times daily 1 Device 3 04/21/2017 ActiveFreestyle Juanpablo Sensor System Misc (5 sources)Start: 04-21-2017 End: 25-98-1280Ckfpavkxbz Blood Gluc Sensor (FREESTYLE JUANPABLO SENSOR SYSTEM) Misc Indications: Type 2 diabetes mellitus with diabetic polyneuropathy, without long-term current use of insulin Inject 1 Each under the skin every [address] one sensor subcutaneous every 10 day 3 Each 6 04/21/2017 01/07/2018 DiscontinuedStart: 20-00-7595Hyaqdsbarl Blood Gluc Sensor (FREESTYLE JUANPABLO SENSOR SYSTEM) Misc Indications: Type 2 diabetes mellitus with diabetic polyneuropathy, without long-term current use of insulin Inject 1 Each under the skin every [address] one sensor subcutaneous every 10 day 3 Each 6 04/21/2017 Activegabapentin 100 mg oral capsule (5 sources)Anti-epileptic AgentStart: 07-10-2021 End: 28-33-7268Hrppy: 07-04-2021 End: 61-24-0598vsrj 200 mg by mouth three times vdayi851 mg, Oral, 3 TIMES DAILY, First dose on Fri07/19/21 at 0900, Until Discontinuedglucagon (rdna) 1 mg injection (2 sources)Antihypoglycemic AgentStart: 02-03-0462vygq 1 mL intravenously every hour1 mg, IntraMUSCular, PRN, Starting on 07/14/21 at 1639, Until Discontinued, Low blood sugar, Blood glucose less than 70 mg/dL and patient NOT ALERT or NPO and does not have IV access. After administration, attempt intravenous access and start D5W at 100 mL/hr. Repeat blood glucose in 15 minutes x2 and notify provider.Start: 03-98-8554igua 1 mL intravenously every hour1 mg, IntraMUSCular, PRN, Starting on Nohemy 06/28/21 at 1617, Until Discontinued, Low blood sugar, Blood glucose less than 70 mg/dL and patient NOT ALERT or NPO and does not have IV access. After administration, attempt intravenous access and start D5W at 100 mL/hr. Repeat blood glucose in 15 minutes x2 and notify provider.1000 ml glucose 100 mg/ml injection (7 sources)Start: 07-25-2021 End: 92-64-1118XgvqrVMElan, at 250 mL/hr, ONCE, On Fri07/25/21 at 0715, For 1 doseStart: 07-14-2021 End: 98-87-1606JnysxLITczs, at 50 mL/hr, CONTINUOUS, Starting on Fri07/25/21 at 1830Start: 31-00-1292188 mL/hr, IntraVENous, PRN, Low blood sugar, Starting on Nohemy 06/28/21 at 1617 Start infusion following administration of dextrose 50% or glucagon.Start: 05-11-2021 End: 53-84-2132yarngatw 5% IV solution 250 mLStart: 10-03-2020 End: 55-98-0966qssdjoti 5% IV solution 250 mLStart: 09-21-2020 End: 34-27-7680zzrnzkoa 5% IV solution 250 mLhydrALAZINE hydrochloride 10 mg oral tablet (3 sources)Arteriolar VasodilatorStart: 07-23-2021 End: 42-41-7853jirn 1 dose by mouth once10 mg, Oral, ONCE, 1 dose, On Fri07/23/21 at 0645Start: 06-29-2021 End: mg, IntraVENous, ONCE, 1 dose, On Fri06/29/21 at 2245 Do not give if HR is above 100Start: 32-40-637823 mg, IntraVENous, EVERY 4 HOURS PRN, Starting on Fri06/29/21 at 2219, Until Discontinued, High Blood Pressure, SBP > 160 Hold for HR >1001 ml HYDROmorphone hydrochloride 1 mg/ml cartridge (2 sources)Opioid AgonistStart: 07-06-2021 End: dose, Starting on Fri07/06/21 at 2140, Until Fri07/06/21 at 2141 Ashwini Cleary: Ashwini Rosas: vita overrideimmune globulin (human) (GAMUNEX-C) infusion 15 g (3 sources)Start: 05-11-2021 End: 42-66-8300mnnbwi globulin (human) (GAMUNEX-C) infusion 15 gStart: 10-03-2020 End: 10-46-3505cnwhip globulin (human) (GAMUNEX-C) infusion 15 gStart: 09-21-2020 End: 80-35-8948kseypc globulin (human) (GAMUNEX-C) infusion 15 ginsulin lispro 100 unt/ml injectable solution (20 sources)Insulin AnalogStart: 08-01-2021 End: -18 Units, SubCUTAneous, 3 TIMES DAILY WITH MEALS, First dose on Fri08/01/21 at 1700, Until Discontinued High Dose Corrective Algorithm Glucose: Dose: 70-139 &nbsp ; No Insulin 140-199 &a mp;nbsp; 3 Units 200-249 6 Units 250-299 9 Units 300- 349 12 Units 350-400 15 Units Over 400 18 UnitsStart: 07-29-2021 End: -12 Units, SubCUTAneous, EVERY 6 HOURS, First dose on 08/04/21 at 0915, Until Discontinued Medium Dose Corrective Algorithm Glucose: Dose: If <139 & nbsp; No Insulin 140- 199 2 Units 200-249 4 Units 250-299 6 Units 300-349 8 Units 350-400 10 Units Above 400 12 UnitsStart: 07-28-2021 End: -3 Units, SubCUTAneous, NIGHTLY, First dose on 07/28/21 at 2100, Until Discontinued If continuous tube feedings/TPN/NPO, give correction dose based on result, no reduction in dose. If eating or bolus tube feeding: Corrective Bedtime (50%) Low Dose Algorithm Glucose: Dose: 70-139 &n bsp; No Insulin 140-249 1 Unit 250-349 2 Units Over 350 3 UnitsStart: 07-28-2021 End: -6 Units, SubCUTAneous, 3 TIMES DAILY WITH MEALS, First dose on Fri07/28/21 at 1700, Until Discontinued Corrective Low Dose Algorithm Glucose: Dose: 70-139 &a mp;nbsp; No Insulin 140-199 1 Unit 200-249 2 Units 250-299 3 Units 300-349 4 Units 350-399 5 Units Over 399 6 UnitsStart: 07-24-2021 End: -12 Units, SubCUTAneous, EVERY 4 HOURS, First dose (after last modification) on Fri07/24/21 at 1600, Until Discontinued Medium Dose Corrective Algorithm Glucose: Dose: If <139 No Insulin 140-199 2 Units 200-249 4 Units 250-299 6 Units 300- 349 8 Units 350-400 10 Units Above 400 &amp ;nbsp; 12 UnitsStart: 07-14-2021 End: -6 Units, SubCUTAneous, NIGHTLY, First dose on Fri07/22/21 at 2100, Until Discontinued If continuous tube feedings/TPN/NPO, give correction dose based on result, no reduction in dose. If eating or bolus tube feeding: Medium Dose Corrective Algorithm Glucose:Dose: If <139 No Insulin 140-199 1 Unit 200-249&am p;nbsp; 2 Units 250-299 3 Units 300-349 &am p;nbsp; 4 Units 350-400 &nbs p; 5 Units Above 400& amp;nbsp; 6 UnitsStart: 07-14-2021 End: -12 Units, SubCUTAneous, 3 TIMES DAILY WITH MEALS, First dose on 07/22/21 at 0845, Until Discontinued Medium Dose Corrective Algorithm Glucose: Dose: If <139 & nbsp; No Insulin 140-199 2 Units 200-249 4 Units 250-299 6 Units 300- 349 8 Units 350-400 10 Units Above 400 &nbsp ; 12 UnitsStart: -6 Units, SubCUTAneous, NIGHTLY, First dose on Nohemy 06/28/21 at 2100, Until Discontinued If continuous tube feedings/TPN/NPO, give correction dose based on result, no reduction in dose. If eating or bolus tube feeding: Medium Dose Corrective Algorithm Glucose: Dose: If <139 No Insulin 140-199 &n bsp; 1 Unit 200-249&a mp;nbsp; 2 Units 250-299 3 Units 300-349 &a mp;nbsp; 4 Units 350-400 &nb sp; 5 Units Above 400 6 UnitsStart: Units, SubCUTAneous, 3 TIMES DAILY WITH MEALS, First dose on Nohemy 06/28/21 at 1700, Until Discontinued Medium Dose Corrective Algorithm Glucose: Dose: If <139 &amp ;nbsp; No Insulin 140-199 2 Units 200-249 4 Units 250-299 6 Units 300-349 8 Units 350-400 10 Units Above 400 12 UnitsStart: 06-23-2020 End: 44-28-2307Yzhemrh Lispro, 1 Unit Dial, (HumaLOG KwikPen) 100 UNIT/ML Solution Pen-injector Sample given [id number], 3 mL 0 09/13/2020 09/28/2020 Discontinued (Therapy completed)Start: 59-97-6417Qmksebt Lispro, 1 Unit Dial, 100 UNIT/ML Solution Pen-injector Indications: Type 1 diabetes mellitus with diabetic neuropathy Use less than 30 units daily with sliding scale. 15 mL 3 03/20/2021 ActiveStart: 48-49-7292dbnuihz lispro (HUMALOG KWIKPEN) 100 UNIT/ML Solution Pen-injector Use less than 30 units daily with sliding scale. 5 Prefilled Pen/Syringe 3 01/19/2018 Activeinsulin lispro (HUMALOG KWIKPEN) 100 UNIT/ML pen Inject 5 Units into the skin 3 times daily (beforemeals) Sliding scale coverage 0 Activeiopamidol (ISOVUE-370) 76 % injection 75 mL (1 source)Start: 06-28-2021 End: 23-09-1837xbscpsoxy (ISOVUE-370) 76 % injection 75 mL1 ml ketorolac tromethamine 30 mg/ml cartridge (4 sources)Nonsteroidal Anti-inflammatory Drug, Cyclooxygenase InhibitorStart: 06-28-2021 End: 28-02-5126rwpp 1 dose intravenously once daily as neededKetorolac is contraindicated in patients with advanced renal [...] Pain Moderate (4-6), Pain Severe (7-10) Do notadminister for more than 5 days.labetalol hydrochloride 5 mg/ml injectable solution (3 sources)beta-Adrenergic BlockerStart: 07-27-2021 End: 35-17-203050 mg, IntraVENous, ONCE, 1 dose, On Fri07/27/21 at 1930Start: 07-27-2021 End: dose, Starting on Fri07/27/21 at 1906, Until Fri07/27/21 at 1907 Helen Levine: vita overrideAndHelen carrington: vita overrideStart: 09-90-062989 mg, IntraVENous, EVERY 4 HOURS PRN, Starting on Nohemy 06/28/21 at 1615, Until Discontinued, High Blood Pressure, for sbp >160 Hold for HR <60, or SBP <120lactobacillus rhamnosus gg [id number] unt oral capsule (6 sources)Start: 07-11-2021 End: 01-51-7503Diujx: 07-11-2021 End: 46-40-6248utyk 1 capsule by mouth once daily at breakfast1 capsule, Oral, DAILY WITH BREAKFAST, First dose on Fri07/16/21 at 0800, Until Discontinued Do notadd to warm or hot foods or beverages. Caps may be opened & mixed in a cool beverage or sprinkled onto baby food or applesauce. Mix entire packet content into cool food or drink until dissolved.latanoprost 0.05 mg/ml ophthalmic solution (20 sources)Prostaglandin AnalogStart: drop, Both Eyes, NIGHTLY, First dose on Fri07/19/21 at 2100, Until DiscontinuedStart: drop, Both Eyes, NIGHTLY, First dose on Nohemy 06/28/21 at 2100, Until DiscontinuedStart: 24-40-3224Ivygk: 11-91-3692skhs 1 drop(s) into the eye(s) once dailylatanoprost (XALATAN) 0.005 % ophthalmic solution Place 1 drop into both eyes nightly 0 03/05/2017 ActiveStart: 29-22-6947dfdj 1 drop(s) into the eye(s) at bedtime latanoprost (XALATAN) 0.005 % ophthalmic solution Administer 1 drop to both eyes at bedtime. 6 03/05/2017 Vkvbnd218 ml levoFLOXacin 5 mg/ml injection (1 source)Quinolone AntimicrobialStart: 07-25-2021 End: 33-27-7680321 mg, IntraVENous, EVERY 24 HOURS, 7 doses, First dose on Fri07/25/21 at 1130, Last dose on Fri07/31/21 at 1130 Antimicrobial Indications: Pneumonia (HAP) HAP duration of therapy: 7 days Suspected Organism(s): gram neg rodslisinopril 10 mg oral tablet (18 sources)Angiotensin Converting Enzyme InhibitorStart: 07-03-2021 End: 06-50-7194bkre 10 mg by mouth once daily10 mg, Oral, DAILY, First dose (after last modification) on Fri07/03/21 at 0900, Until DiscontinuedStart: 06-29-2021 End: 18-06-5509kfer 10 mg by mouth once daily10 mg, Oral, DAILY, First dose on Fri06/29/21 at 0900, Until Discontinuedtake 1 tablet by mouth once daily lisinopril 5 MG Tab tablet take 5 mg by mouth daily. Activeloperamide hydrochloride 0.133 mg/ml oral suspension (2 sources)Opioid AgonistStart: 18-43-1985xtri 2 mg by mouth four times daily as needed2 mg, Oral, 4 TIMES DAILY PRN, Starting on Fri08/04/21 at 0758, Until Discontinued, Diarrhea After each loose stool.Start: 07-39-0659ahap 2 mg by mouth four times daily as needed2 mg, Oral, 4 TIMES DAILY PRN, Starting on Fri07/03/21 at 0329, Until Discontinued, Diarrhea After each loose stool.magnesium hydroxide 80 mg/ml oral suspension (2 sources)Start: 07-29-2021 End: mL, Per NG tube, DAILY PRN, Starting on Fri08/04/21 at 0800, Until Discontinued, Muxrclprktsl93 ml magnesium sulfate 40 mg/ml injection (10 sources)Start: 08-07-2021 End: ,000 mg, IntraVENous, at 25 mL/hr, Administer over 2 Hours, ONCE, On Fri08/07/21 at 1545, For 1 dose Recommended infusion rate not to exceed 1,000 mg (milligrams) per hour.Start: 07-25-2021 End: ,000 mg, IntraVENous, at 25 mL/hr, Administer over 2 Hours, ONCE, On Fri07/25/21 at 0800, For 1 dose Recommended infusion rate not to exceed 1,000 mg (milligrams) per hour.Start: 07-16-2021 End: ,000 mg, IntraVENous, at 25 mL/hr, Administer over 2 Hours, ONCE, On Fri07/16/21 at 0900, For 1 dose Recommended infusion rate not to exceed 1,000 mg (milligrams) per hour.Start: 07-13-2021 End: 11-62-3978unkp 1000 mg intravenously every hour as needed1,000 mg, IntraVENous, at 100 mL/hr, Administer over 1 Hours, PRN, Other, Per Magnesium IV Replacement Protocol, Starting on Fri07/14/21 at 1639 Mg Lab Replacement Action 1.4- 1.6 1 gram IVPB x 2 doses&am p;nbsp; &am p;nbsp; (2 gram Total) 1.0-1.3&a mp;nbsp; 1 gram IVPB x 4 doses & amp;nbsp; & amp;nbsp; (4 gram Total) <1.0 CALL PHYSICIAN and 1 gram IVPB x 4 doses (4 gram Total) Infuse at 1 gram/hr Repeat Mag level next AM Protocol not for use in Patients with CrCl<30ml/min Start: 07-10-2021 End: ,000 mg, IntraVENous, at 100 mL/hr, Administer over 1 Hours, ONCE, On Fri07/10/21 at 1130, For 1 dose Recommended infusion rate not to exceed 1,000 mg (milligrams) per hour.Start: 07-08-2021 End: ,000 mg, IntraVENous, at 100 mL/hr, Administer over 1 Hours, ONCE, On Fri07/08/21 at 0900, For 1 dose Recommended infusion rate not to exceed 1,000 mg (milligrams) per hour.Start: 07-05-2021 End: ,000 mg, IntraVENous, at 100 mL/hr, Administer over 1 Hours, ONCE, On Nohemy 07/05/21 at 1115, For 1 dose Recommended infusion rate not to exceed 1,000 mg (milligrams) per hour.Start: 07-01-2021 End: ,000 mg, IntraVENous, at 25 mL/hr, Administer over 2 Hours, ONCE, On Fri07/01/21 at 1130, For 1 dose 2 grams totalStart: 06-28-2021 End: ,000 mg, IntraVENous, at 25 mL/hr, Administer over 2 Hours, ONCE, On Nohemy 06/28/21 at 1445, For 1 dose Recommended infusion rate not to exceed 1,000 mg (milligrams) per hour.metFORMIN hydrochloride 1000 mg oral tablet (7 sources)Biguanide End: 54-93-8573whdHXLZUF (GLUCOPHAGE) 1000 MG tablet 2 (two) times a day. 0 12/20/2019 Discontinued (Error)methylPREDNISolone 40 mg injection (2 sources)CorticosteroidStart: 07-27-2021 End: 24-14-691237 mg, IntraVENous, 2 times daily, First dose on Fri07/27/21 at 1200 For post extubation stridorStart: 07-26-2021 End: 71-77-4145565 mg, IntraVENous, ONCE, On Nohemy 07/26/21 at 1200, For 1 dose2 ml metoclopramide 5 mg/ml prefilled syringe (5 sources)Dopamine-2 Receptor AntagonistStart: 08-04-2021 End: mg, IntraVENous, EVERY 6 HOURS, First dose on 08/04/21 at 1600, Until Discontinuedtake 5 mg by mouth twice dailymetoclopramide (REGLAN) 5 MG/5ML solution Take 5 mg by mouth 2 times daily 0 Active5 ml metoprolol tartrate 1 mg/ml injection (17 sources)beta-Adrenergic BlockerStart: 07-27-2021 End: .5 mg, IntraVENous, ONCE, 1 dose, On Fri07/27/21 at 0830Start: 06-30-2021 End: mg, IntraVENous, EVERY 6 HOURS, First dose on 06/30/21 at 1015, Until Discontinued Hold for HR< 70, S bp< 130 End: 28-71-4313qopp 1 tablet by mouth twice dailymetoprolol (LOPRESSOR) 100 MG tablet Take 100 mg by mouth 2 times daily 0 06/28/2021 Discontinued (LIST CLEANUP) End: 86-92-0404ygsvbausfr tartrate (LOPRESSOR) 50 MG tablet 2 (two) times a day. 0 12/20/2019 Discontinued (Error)take 2 tablets by mouth twice dailymetoprolol 25 MG tab regular release Take 50 mg by mouth 2 times daily. Active2 ml midazolam 1 mg/ml injection (3 sources)BenzodiazepineStart: 07-29-2021 End: mg, IntraVENous, ONCE, 1 dose, On Fri07/29/21 at 0600Start: 07-24-2021 End: mg, IntraVENous, ONCE, 1 dose, On Fri07/24/21 at 1215Start: 07-24-2021 End: dose, Starting on Fri07/24/21 at 1150, Until Fri07/24/21 at 2359 DESTINY HOUSTON: cabinet override DESTINY HOUSTON: cabinet override2 ml naloxone hydrochloride 1 mg/ml prefilled syringe (1 source)Opioid AntagonistStart: 06-28-2021 End: 20-83-7178vwrjwbyx (NARCAN) injection 1 mgStart: 06-28-2021 End: 92-35-9628tjnkkegq (NARCAN) injection 1 mg2 ml ondansetron 2 mg/ml injection (3 sources)Serotonin-3 Receptor AntagonistStart: 06-28-2021 End: 61-14-6686vczebaqgynl (ZOFRAN) injection 4 mgStart: 06-28-2021 End: 26-09-6722zcctcgqkmhw (ZOFRAN) 4 MG/2ML injectionpiperacillin-tazobactam (ZOSYN) 3,375 mg in dextrose 5 % 50 mL IVPB (mini-bag) (3 sources)Start: 07-14-2021 End: 72-47-4359fnggrhaokpyh-tazobactam (ZOSYN) 3,375 mg in dextrose 5 % 50 mL IVPB (mini-bag)Start: 07-14-2021 End: 08-01-3794wdbfluemcwpw-tazobactam (ZOSYN) 3,375 mg in dextrose 5 % 50 mL IVPB (mini-bag)Start: 07-13-2021 End: 52-65-6347fswssgwfhqwz-tazobactam (ZOSYN) 3,375 mg in dextrose 5 % 50 mL IVPB (mini-bag)piperacillin-tazobactam (ZOSYN) 3,375 mg in dextrose 5 % 50 mL IVPB extended infusion (mini-bag) (1 source)Start: 07-14-2021 End: ,375 mg, IntraVENous, EVERY 8 HOURS, 15 doses, First dose on 5/28/22 at 1700, Last dose on Fri07/19/21 at 0900 Antimicrobial Indications: Pneumonia (CAP) CAP duration of therapy: 5 dayspotassium bicarbonate 20 meq effervescent oral tablet (19 sources)Start: 07-20-2021 End: mEq, Oral, 3 TIMES DAILY, First dose on Fri07/20/21 at 1515, Until Discontinued Do not chew or crush. Dissolve flavored tablets completely in 3 to 4 ounces of cold water; unflavored tablets may be dissolved in 3 to 4 ounces of cold juice. Patient to sip slowly over a 5 to 10 minute period. May further dilute if GI adverse effects occur.Start: 07-19-2021 potassium bicarb-citric acid (EFFER-K) 20 MEQ TBEF effervescent tablet 2 tablets by Per NG tube route in the morning, at noon, and at bedtime 120 tablet 0 07/19/2021 ActiveStart: 52-28-2331Fgjec: mEq, Oral, 4 TIMES DAILY, 8 doses, First dose on Fri07/17/21 at 1700, Last dose on Fri07/19/21 [id number] Do not chew or crush. Dissolve flavored tablets completely in 3 to 4 ounces of cold water; unflavored tablets may be dissolved in 3 to 4 ounces of cold juice. Patient to sip slowly over a 5 to 10 minute period. May further dilute if GI adverse effects occur.Start: mEq, Oral, EVERY 2 HOURS, 3 doses, First dose (after last modification) on Fri07/17/21 at 0845, L ast dose on Fri07/17/21 at 1400 Do not chew or crush. Dissolve flavored tablets completelyin 3 to 4 ounces of cold water; unflavored tablets may be dissolved in 3 to 4 ounces of cold juice. Patient to sip slowly over a 5 to 10 minute period. May further dilute if GI adverse effects occur. Start: mEq, Oral, ONCE, 1 dose, On Fri07/29/21 at 0630 Do not chew or crush. Dissolve flavoredtablets completely in 3 to 4 ounces of cold water; unflavored tablets may be dissolved in 3 to 4 ounces of cold juice. Patient to sip slowly over a 5 to 10 minute period. May further dilute if GI adverse effects occur.Start: 07-13-2021 End: 40-82-6371lrvomkwtg bicarb-citric acid (EFFER-K) effervescent tablet 40 mEq Start: mEq, Oral, DAILY, First dose on Fri07/10/21 at 0900, Until Discontinued Do not chew or crush. Dissolve flavored tablets completely in 3 to 4 ounces of cold water; unflavored tablets may be dissolved in 3 to 4 ounces of cold juice. Patient to sip slowly over a 5 to 10 minute shannan od. May further dilute if GI adverse effects occur.Start: 07-03-2021 End: mEq, Oral, ONCE, 1 dose, On Fri07/03/21 at 1900 Do not chew or crush. Dissolve flavoredtablets completely in 3 to 4 ounces of cold water; unflavored tablets may be dissolved in 3 to 4 ounces of cold juice. Patient to sip slowly over a 5 to 10 minute period. May further dilute if GI adverse effects occur.Start: 07-03-2021 End: mEq, Oral, DAILY, First dose on Fri07/03/21 at 0630, Until Discontinued Do not chew or crush. Dissolve flavored tablets completely in 3 to 4 ounces of cold water; unflavored tablets may be dissolved in 3 to 4 ounces of cold juice. Patient to sip slowly over a 5 to 10 minute shannan od. May further dilute if GI adverse effects occur.Start: 07-02-2021 End: mEq, Oral, ONCE, 1 dose, On Fri07/02/21 at 0630 Do not chew or crush. Dissolve flavoredtablets completely in 3 to 4 ounces of cold water; unflavored tablets may be dissolved in 3 to 4 ounces of cold juice. Patient to sip slowly over a 5 to 10 minute period. May further dilute if GI adverse effects occur.2 ml prochlorperazine 5 mg/ml injection (1 source)PhenothiazineStart: 06-28-2021 End: 47-50-9385ndamnimaxxooibfq (COMPAZINE) injection 10 mg100 ml propofol 10 mg/ml injection (1 source)General AnestheticStart: 07-26-2021 End: -50 mcg/kg/min 56.4 kg (1.692-16.92 mL/hr, rounded to 1.7-16.9 mL/hr), IntraVENous, CONTINUOUS, Starting on Nohemy 07/26/21 at 1430, Until Nohemy 08/02/21 at 1741 Titrate Infusion? Yes Initial Infusion Dose:20 mcg/kg/min Goal of Therapy: RASS of -1 [...] propofol vials should be discarded after 12 hours.tiZANidine 2 mg oral tablet (20 sources)Central alpha-2 Adrenergic AgonistStart: 08-47-5682mvbh 2 mg by mouth every eight hours as needed2 mg, Oral, EVERY 8 HOURS PRN, Starting on 07/02/21 at 1157, Until Discontinued, Muscle spasmstiZANidine (Zanaflex) 4 MG tablet Take 1 tablet as needed by oral route. Activevitamin b12 1 mg oral tablet (4 sources)Vitamin E72Pfkmv: 06-10-2018 End: 18-15-9493dcqm 2 tablets by mouth once dailycyanocobalamin 1000 MCG Tab Take 2 tablets by mouth daily. 60 tablet 11 06/10/2018 09/28/2020 Discontinued (Therapy completed) (20 sources)Start: 07-26-2021 End: 97-09-0787flkn 20 mg intravenously twice daily20 mg, IntraVENous, 2 TIMES DAILY, First dose (after last modification) on Nohemy 07/26/21 at 2100, Until Discontinued IV Push over minimum of 2 minutes - Dilute with 10 mL NSStart: 07-25-2021[Order 1 Start] Name: potassium chloride (KLOR-CON M) extended release tablet 40 mEq Signed Summary: 40 mEq, Oral, PRN, Starting on Fri07/25/21 at 0628, Until Discontinued, Potassium Replacement May give alternative linked oral order (ordered as effervescent, packet, or liquid solution) if patient unable to tolerate tablet. K Lab & amp;nbsp; Replacement Action 3.1 to 3.5 40 mEq ORAL x 1 Under 3 .1 Refer to IV replacement protocol&n bsp; Recheck K level in AM. Protocol not for use in patients with CrCl less than 30 mL/min. [Order 1 End] [Order 2 Start] Name: potassium bicarb-citric acid (EFFER-K) effervescent tablet 40 mEq Signed Summary: 40 mEq, Oral, PRN, Starting on Fri07/25/21 at 0628, Until Discontinued, Per Potassium Replacement Protocol Administer as alternative if patient unable to tolerate oral table t. K Lab &am p;nbsp; Replacement Action 3.1 to 3.5 & nbsp; 40 mEq ORAL x 1 Under 3.1 Refer to IV replacement protocol RecheckK level in AM. Protocol not for use in patients with CrCl less than 30 mL/min. Donot chew or crush. Dissolve flavored tablets completely [...] 6 doses (60 mEq Total) Under 2.7 & nbsp; CALL PROVIDER and administer 10 mEq IVPB x 6 doses (60 mEq Total) Infuse at 10 mEq/hr. Repeat Potassium lab 1 hour after final administration. Protocol not for use in patients with CrCl less than 30 mL/min. [Order 3 End]Start: 06-07-2022 End: 40-76-8158936 mg, IntraVENous, at 100 mL/hr, Administer over 60 Minutes, EVERY 12 HOURS, First dose (after last modification) on Fri07/24/21 at 2100Start: 07-24-2021 End: 26-23-7066gain 8 mg intravenously every hour8 mg/hr (10 mL/hr), IntraVENous, CONTINUOUS, Starting on Fri07/24/21 at 1515, Until Fri07/26/21 at 094 5Start: 07-24-2021 End: 96-61-385329 mg, IntraVENous, at 100 mL/hr, Administer over 30 Minutes, ONCE, On Fri07/24/21 at 1500, For 1 doseStart: 07-18-2021 End: ,000 mg, IntraVENous, EVERY 6 HOURS, 112 doses, First dose on Fri07/18/21 at 1400, Last dose on Fri08/15/21 at 1030 Antimicrobial Indications: Bloodstream Infection, Bone and Joint InfectionStart: 07-17-2021 End: .25 mg, IntraVENous, at 200 mL/hr, Administer over 15 Minutes, ONCE, On Fri07/17/21 at 2315, For 1doseStart: 07-15-2021 End: ,000 mg, IntraVENous, EVERY 6 HOURS, 112 doses, First dose on Fri07/15/21 at 1745, Last dose on Fri08/12/21 at 1500 Antimicrobial Indications: Bloodstream Infection, Bone and Joint InfectionStart: 07-14-2021[Order 1 Start] Name: dextrose bolus 10% 125 mL Signed Summary: 125 [...] dose as instructed per system. [Order 2 End]Start: 07-14-2021[Order 1 Start] Name: acetaminophen (TYLENOL) tablet 650 mg Signed Summary: 650 [...] oral route cannot be used. [Order 2 End]Start: 07-14-2021 [Order 1 Start] Name: ondansetron (ZOFRAN-ODT) disintegrating tablet 4 mg Signed Summary: 4 mg, Oral, EVERY 8 HOURS PRN, Starting on 07/14/21 at 1639, Until Discontinued, Nausea, Vomiting [Order 1End] [Order 2 Start] Name: ondansetron (ZOFRAN) injection 4 mg Signed Summary: 4 mg, IntraVENous, EVERY 6 HOURS PRN, Starting on 07/14/21 at 1639, Until Discontinued, Nausea, Vomiting Administer if oral route cannot be used. [Order 2 End]Start: 07-06-2021[Order 1 Start] Name: oxyCODONE (ROXICODONE) immediate release tablet 5 mg Signed Summary: 5 mg, Oral, EVERY 4 HOURS PRN, Starting on Fri07/06/21 at 2217, Until Discontinued, Pain Moderate (4-6) [Order 1 End] [Order 2 Start] Name: oxyCODONE (ROXICODONE) immediate release tablet 10 mg Signed Summary: 10 mg, Oral, EVERY 4 HOURS PRN, Starting on Fri07/06/21 at 2217, Until Discontinued, Pain Severe (7-10) [Order 2 End]Start: 07-02-2021 End: 26-32-6498693 mg, IntraVENous, at 100 mL/hr, Administer over 60 Minutes, ONCE, On 07/02/21 at 2345, For 1 doseStart: 07-01-2021 End: 57-66-8661632 mg, IntraVENous, at 100 mL/hr, Administer over 60 Minutes, EVERY 8 HOURS, First dose on Fri07/01/21 at 2000, For 3 dosesStart: 07-01-2021 End: 72-10-1394762 mg, IntraVENous, at 100 mL/hr, Administer over 60 Minutes, ONCE, On Fri07/01/21 at 1130, For 1 doseStart: 06-30-2021 End: 24-51-3184ltxl 8 mg intravenously every hour8 mg/hr (10 mL/hr), IntraVENous, CONTINUOUS, Starting on 06/30/21 at 1315, Until Fri07/02/21 at 1 411Start: 06-30-2021 End: 20-28-605125 mg, IntraVENous, at 100 mL/hr, Administer over 30 Minutes, ONCE, On 06/30/21 at 1315, For 1 doseStart: 06-30-2021 End: 44-99-496102 mg, IntraVENous, DAILY, First dose on Fri06/30/21 at 0915 Reconstitute with 10 mL 0.9 % sodium chloride and administer over at least 2 minutes.Start: ,000 mg, IntraVENous, EVERY 4 HOURS, First dose on Fri06/29/21 at 1600, Until Discontinued Antimicrobial Indications: Bloodstream InfectionStart: 06-28-2021[Order 1 Start] Name: ondansetron (ZOFRAN-ODT) disintegrating tablet 4 mg Signed Summary: [...] oral route cannot be used. [Order 2 End]Start: 06-28-2021[Order 1 Start] Name: dextrose bolus 10% 125 mL Signed Summary: 125 [...] dose as instructed per system. [Order 2 End]Start: 06-28-2021 End: 51-91-9562ajwg 100 mg intravenously every twelve hours2,000 mg, IntraVENous, EVERY 12 HOURS, First dose (after last modification) on Nohemy 06/28/21 at 1615,Until Discontinued Antimicrobial Indications: Central Nervous System Infection Administer as slow IV Push over 5 mins Reconstitute 2 g vials with 19.2 mL of designated diluent to produce a 100mg/mL solutionStart: 06-28-2021 End: 70-98-1399804 mg, IntraVENous, at 1,000 mL/hr, Administer over 60 Minutes, ONCE, On Fri06/28/21 at 1445, For 1 dose Use 0.22 micron in-line filter. (1 source)Start: 74-77-006184 g (4 tablet), Oral, PRN, Starting on Fri06/28/21 at 1616, Until Discontinued, Low blood sugar Ifblood glucose is LESS than 70 mg/dL and patient is alert and tolerating oral. Give 4 tablets (16g) Repeat blood glucose in 15 minutes. If blood glucose is less than 70 mg/dL, repeattreatment and recheck blood glucose in 15 minutes x 2. If blood glucose remains LESS than 70 mg/dL,notify provider. (1 source) End: 07-10-2021 (3 sources)Start: 07-07-2021 End: ,000 mL (15.2 mL/kg), IntraVENous, at 495.9 mL/hr, Administer over 121 Minutes, ONCE, On Fri07/07/21 at 0600, For 1 doseStart: 07-06-2021 End: ,000 mL (15.2 mL/kg), IntraVENous, at 983.6 mL/hr, Administer over 61 Minutes, ONCE, On Fri07/06/21 at 0800, For 1 doseStart: 06-28-2021 End: ,000 mL (15.2 mL/kg), IntraVENous, at 1,000 mL/hr, Administer over 1 Hours, ONCE, On Fri06/28/21 at 1300, For 1 dose (3 sources)Start: 07-26-2021 End: 31-07-8280hqmc 1 dose intravenously once12 mL, IntraVENous, IMG ONCE PRN, 1 dose, Starting on Fri07/26/21 at 1744, Until Fri07/26/21 at 1745,OtherStart: 07-05-2021 End: 05-43-7599mzec 1 dose intravenously once10 mL, IntraVENous, IMG ONCE PRN, 1 dose, Starting on Fri07/05/21 at 1732, Until Fri07/05/21 at 1732, OtherStart: 07-04-2021 End: 61-24-3291jcym 1 dose intravenously once12 mL, IntraVENous, IMG ONCE PRN, 1 dose, Starting on Fri07/04/21 at 1932, Until Fri07/04/21 at 1936, Other (1 source)Start: 07-03-2021 End: 76-57-1783hojx 1 dose intravenously once25 millicurie, IntraVENous, IMG ONCE PRN, 1 dose, Starting on Fri07/03/21 at 1250, Until Fri07/03/21 at 0930, Other, Nuclear Medicine (4 sources)Start: 07-25-2021 End: 96-20-9552pfvz 1 dose intravenously qdvd906 mL, IntraVENous, IMG ONCE PRN, 1 dose, Starting on Fri07/25/21 at 1658, Until Fri07/25/21 at 1707, OtherStart: 07-24-2021 End: 15-67-9441stnw 1 dose intravenously once75 mL, IntraVENous, IMG ONCE PRN, 1 dose, Starting on Fri07/24/21 at 1109, Until Discontinued, OtherStart: 06-29-2021 End: 87-30-3935knrk 1 dose intravenously once75 mL, IntraVENous, IMG ONCE PRN, 1 dose, Starting on Fri06/29/21 at 1914, Until Fri06/29/21 at 1950, OtherStart: 06-28-2021 End: 55-50-0215eduo 1 dose intravenously once90 mL, IntraVENous, IMG ONCE PRN, 1 dose, Starting on Fri06/28/21 at 1215, Until Fri06/28/21 at 1226, Other (1 source)Start: 07-24-2021 End: -100 mcg/min (0.9375-93.75 mL/hr, rounded to 0.9-93.8 mL/hr), IntraVENous, CONTINUOUS, Starting onT07/24/21 at 1130, Until Nohemy 07/26/21 at 0959 Titrate Infusion? Yes Initial Infusion Dose: 5 mcg/minGoal of Therapy is: MAP greater than 65 mmHg Contact Provider if: Patient is receiving the maximum dose and is not achieving the goal of therapy Infuse via central line. If Titrate Infusion?is No : Disregard instructions below. If Titrate [...] may be used to maintain goal. (1 source)Start: 07-15-2021 End: 81-70-5848horp 1 dose intravenously [id number] mg, IntraVENous, ONCE, 1 dose, On 07/15/21 at 1830 Does this patient qualify for COVID-19 antibody therapy based on criteria for treatment? Yes Administer IVP using an optional extension set over 30 seconds. Flush with NS immediately following administration. Clinically monitor patient during push and observe patient for at least 1 hour after administration is complete. Problems Active Problems Problem ClassificationProblemDateDocumented DateEpisodic/ChronicAllergic reactions (2 sources)Atopic dermatitis; Translations: [Other atopic dermatitis]08-27-2024 ChronicAllergic reactions (8 sources)Allergy to drug; Translations: [Allergy status to other antibiotic agents status]EpisodicAsthma (20 sources)Asthma; Translations: [Unspecified asthma, uncomplicated]Onset: 913117-18-2136DncjwhmSpliiyaor infection; unspecified site (5 sources)Bacteremia; Translations: [Bacteremia]Onset: 45-87-7877HobeawanYcqbg (1 source)Partial thickness burn of skin of finger; Translations: [Burn of second degree of single right finger (nail) except thumb, initial encounter] EpisodicCataract (20 sources)Nuclear sclerotic cataract; Translations: [Age-related nuclear cataract, left eye]Onset: 371757-04-9190BdkwpqvCtrxqam ulcer of skin (20 sources)Ulcer of big toe; Translations: [Non-pressure chronic ulcer of other part of left foot with unspecified severity]Onset: 20-42-2830PwqtfisGyck; stupor; and brain damage (1 source)Stupor; Translations: [Stupor]EpisodicCoronary atherosclerosis and other heart disease (7 sources)Coronary atherosclerosis; Translations: [Atherosclerotic heart disease of [place] coronary artery without angina pectoris]Onset: 06-24-2012 18-64-2949XijwmwkQcyzftyqib and other anemia (4 sources)Anemia due to blood loss; Translations: [Iron deficiency anemia secondary to blood loss (chronic)]Onset: 370649-96-0471RjqoodtPxekaabrzs and other anemia (6 sources)Normocytic anemia; Translations: [Anemia, unspecified]Episodic Deficiency and other anemia (2 sources)Iron deficiency anemia; Translations: [Other iron deficiency anemias] 03-01-6592VztmijhsTqehsqsl, dementia, and amnestic and other cognitive disorders (4 sources)Delirium due to multiple etiological factors; Translations: [Delirium due to known physiological condition]Onset: 014700-41-6462KhksqjbGirsjqip mellitus with complications (20 sources)Type 2 diabetes mellitus with ulcer; Translations: [Type 2 diabetes mellitus with foot ulcer]Onset: 729643-68-4636LodmtmiLirjdkjm mellitus without complication (18 sources)Type 2 diabetes mellitus without complication; Translations: [Diabetes mellitus]Onset: 579740-41-3351YiakwaiFmunwxye of white blood cells (10 sources)Leukocytosis; Translations: [Elevated white blood cell count, unspecified]ChronicDisorders of lipid metabolism (20 sources)Mixed hyperlipidemia; Translations: [Hypercholesterolemia]Onset: 287080-56-7119QvbmpxtLesffuznseey (except that caused by tuberculosis or sexually transmitted disease) (4 sources)Encephalitis; Translations: [Encephalitis and encephalomyelitis, unspecified]EpisodicEsophageal disorders (7 sources)Gastroesophageal reflux disease; Translations: [Gastro-esophageal reflux disease without esophagitis]Onset: 563967-45-8274YothyrlAajmebabx hypertension (20 sources)Benign essential hypertension; Translations: [Hypertensive disorder] Onset: 240350-18-1071KcitdlnDrfpx and electrolyte disorders (12 sources)Hypokalemia; Translations: [Hypokalemia]Onset: 90-83-5597Kzawtfqy Gastrointestinal hemorrhage (8 sources)Upper gastrointestinal bleeding; Translations: [Gastrointestinal hemorrhage, unspecified]EpisodicGlaucoma (20 sources)Glaucoma; Translations: [Unspecified glaucoma]Onset: 06-24-2012 ChronicHeadache; including migraine (15 sources)Headache; Translations: [Headache]Onset: EpisodicInfective arthritis and osteomyelitis (except that caused by tuberculosis or sexually transmitted disease) (20 sources)Osteomyelitis; Translations: [Osteomyelitis, unspecified]Onset: 67-33-5339HaxdhblUnhdk disorders and dislocations; trauma-related (5 sources)Derangement of right knee; Translations: [Unspecified internal derangement of right knee]Onset: 128590-57-5938XlbxexpFkwx disorders (1 source)Mild major depression, single episode; Translations: [Major depressive disorder, single episode, mild]34-64-0997WlimnjmVqefes and vomiting (9 sources)Nausea and vomiting; Translations: [Nausea with vomiting, unspecified]EpisodicNeoplasms of unspecified nature or uncertain behavior (13 sources)Monoclonal gammopathy of uncertain significance; Translations: [Monoclonal gammopathy]Onset: 952537-88-9487KbbamsfKoxsqerstyw deficiencies (7 sources)Vitamin D deficiency; Translations: [Vitamin D deficiency, unspecified]Onset: 302629-07-4855MkgxcjlUepq wounds of extremities (2 sources)Avulsion injury of fingernail; Translations: [Laceration of right thumb]EpisodicOsteoarthritis (20 sources)Osteoarthritis of joint of bilateral hands; Translations: [Primary osteoarthritis, right hand]Onset: 903197-64-0638MapjjagVabxh aftercare (20 sources)Patient encounter status; Translations: [shelter (current) use of non-steroidal anti-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 (NSAID)]Onset: 482198-66-1384Vxpukbil Other aftercare (1 source)Long-term current use of antibiotic; Translations: [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]EpisodicOther COMMERCIAL PEST CONTROL TECHNICIAN infection and poliomyelitis (9 sources)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; 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]EpisodicOther connective tissue disease (2 sources)Pain in hallux; Translations: [Pain in left toe(s)]EpisodicOther connective tissue disease (4 sources)History of cervical spine fusion; Translations: [Arthrodesis status] Onset: 63-39-5511TdpjymalTfqbq gastrointestinal disorders (7 sources)Irritable bowel syndrome; Translations: [Irritable bowel syndrome without diarrhea]Onset: 590232-13-3171SdbbfnnKbase injuries and conditions due to external causes (1 source)Local infection of wound; Translations: [Other injury of unspecified body region, initial encounter]EpisodicOther lower respiratory disease (1 source)Shortness of breath; Translations: [Shortness of breath]Onset: 83-02-2037GwmwyquhRdytk lower respiratory disease (1 source)Cough; Translations: [Cough, unspecified type]43-11-9121OptullmwUsovt nervous system disorders (20 sources)Chronic inflammatory demyelinating polyradiculoneuropathy; Translations: [Chronic inflammatory demyelinating polyneuritis]Onset: 06-24-2018 ChronicOther nervous system disorders (7 sources)Neuropathy of upper limb; Translations: [Unspecified mononeuropathy of unspecified upper limb]Onset: 226811-58-6018CqoczqkWsyga nervous system disorders (9 sources)Disorder of brain; Translations: [Encephalopathy, unspecified]Chronic Other nervous system disorders (9 sources)Metabolic encephalopathy; Translations: [Metabolic encephalopathy] Onset: 48-43-6678FmkdbtvFsdhw nervous system disorders (2 sources)Chronic inflammatory demyelinating polyneuritis; Translations: [Chronic inflammatory demyelinating polyneuritis]Onset: 91-44-1722SibqovxFxtel nervous system disorders (4 sources)Toxic metabolic encephalopathy; Translations: [Toxic metabolic encephalopathy]35-89-2858QizfxxwsPpjbk nutritional; endocrine; and metabolic disorders (7 sources)POEMS syndrome; Translations: [Other disorders of plasma-protein metabolism, not elsewhere classified]Onset: 572049-91-2936XyynuyhSprut nutritional; endocrine; and metabolic disorders (7 sources)Hypomagnesemia; Translations: [Hypomagnesemia]Onset: 07-15-2021 ChronicOther nutritional; endocrine; and metabolic disorders (1 source)Hypocalcemia; Translations: [Hypocalcemia]87-59-8507GptxqopQxzei nutritional; endocrine; and metabolic disorders (8 sources)Unintentional weight loss; Translations: [Abnormal weight loss] EpisodicOther nutritional; endocrine; and metabolic disorders (6 sources)Feeding problem; Translations: [Feeding difficulties]EpisodicOther screening for suspected conditions (not mental disorders or infectious disease) (9 sources)Elevated C-reactive protein; Translations: [Elevated C-reactive protein (CRP)]EpisodicOther upper respiratory disease (5 sources)Chronic rhinitis; Translations: [Chronic rhinitis]Onset: 09-26-2020 27-82-7136LpelwkzWdyjn upper respiratory disease (4 sources)Finding of respiratory device; Translations: [Encounter for attention to tracheostomy]Onset: 026639-28-8020IbmyjffLmdaz upper respiratory disease (4 sources)Tracheostomy present; Translations: [Tracheostomy status]Onset: 851882-92-2816QdhdqfuTlfbe upper respiratory disease (4 sources)Nasal discharge; Translations: [Other specified disorders of nose and nasal sinuses]40-48-2485FflsaywjNdlrk upper respiratory infections (4 sources)Acute pansinusitis; Translations: [Acute pansinusitis, unspecified] 17-09-4165DbyofhjcAhxvmqctl (except that caused by tuberculosis or sexually transmitted disease) (1 source)Infective pneumonia; Translations: [Pneumonia, unspecified organism] EpisodicResidual codes; unclassified (6 sources)Tube feeding diet; Translations: [Other specified health status] EpisodicRespiratory failure; insufficiency; arrest (adult) (10 sources)Acute hypoxemic respiratory failure; Translations: [Acute respiratory failure with hypoxia]Onset: 58-16-0387LhlwkobdRhby and subcutaneous tissue infections (17 sources)Cellulitis of right lower limb; Translations: [Cutaneous abscess of left hand]Onset: 96-32-7952RctsuwwmUbwx and subcutaneous tissue infections (1 source)Cellulitis of finger of left hand; Translations: [Cellulitis of left finger]Onset: 219506-29-4784Osqbnqwxcxg; intervertebral disc disorders; other back problems (20 sources)Degeneration of cervical intervertebral disc; Translations: [Other cervical disc degeneration, unspecified cervical region]Onset: 03-19-2018 36-24-0341KdlkbfyGfajhtchspi; intervertebral disc disorders; other back problems (14 sources)Neck pain; Translations: [Cervicalgia]Onset: EpisodicThyroid disorders (20 sources)Hypothyroidism; Translations: [Hypothyroidism, unspecified]Onset: 369011-62-5969SquasrdKhpyxvzozcjl (13 sources)Sleep apnea; Translations: [Sleep apnea, unspecified]10-10-2017 ChronicUnclassified (2 sources)Post Op Visit; Translations: [Post Op Visit]Onset: 02-15-2021 Unclassified (2 sources)Intraocular Pressure Check; Translations: [Intraocular Pressure Check]Onset: 12-26-2020 Past or Other Problems Problem ClassificationProblemDateDocumented DateEpisodic/ChronicAbdominal hernia (7 sources)Diaphragmatic hernia; Translations: [Diaphragmatic hernia without obstruction or gangrene]Onset: 181514-20-4311VongloucAsitgatybzfsem/social admission (4 sources)Discharge status; Translations: [Encounter for administrative examinations, unspecified]Onset: 245502-49-4089ApnvyjeiWjuoiqs dysrhythmias (7 sources)Palpitations; Translations: [Palpitations]Onset: EpisodicComplications of surgical procedures or medical care (4 sources)Ventilator associated pneumonia; Translations: [Ventilator associated pneumonia]Onset: 380878-77-2541BbahrrkqNffrvreezz and other anemia (7 sources)Anemia; Translations: [Anemia, unspecified]Onset: 01-22-2018 98-55-6372UvuhmfcaMwugemfa of lower limb (20 sources)Closed fracture of first metatarsal bone ; Translations: [Displaced fracture of first metatarsal bone, left foot, subsequent encounter for fracture with routine healing]Onset: 71-20-7750EjmowqevXtesnsa and fatigue (7 sources)Fatigue; Translations: [Other fatigue]Onset: EpisodicNonspecific chest pain (17 sources)Chest pain; Translations: [Other chest pain]Onset: 10-09-2017 76-01-1648NmexodxjEdlhl bone disease and musculoskeletal deformities (7 sources)Disorder of skeletal system; Translations: [Disorder of bone, unspecified]Onset: 755540-95-7293ZbifnpfmNgfjk bone disease and musculoskeletal deformities (7 sources)X-ray evidence of poor mineralization; Translations: [Other specified disorders of bone density andstructure, unspecified site]Onset: 03-19-2018 11-06-8633SgjaiuomJhunn circulatory disease (7 sources)H/O: cardiovascular disease; Translations: [Personal history of other diseases of the circulatory system]Onset: 873287-27-3956UpcfzkygLoqrn connective tissue disease (7 sources)Pain of bilateral hands; Translations: [Pain in right hand]Onset: 260716-26-7972HwmgtvpwNabfc connective tissue disease (7 sources)Biceps tendinitis; Translations: [Bicipital tendinitis, right shoulder]Onset: 220639-35-8225AlwnyijgVhgwf connective tissue disease (7 sources)Bilateral rotator cuff tendinitis; Translations: [Other shoulder lesions, right shoulder]Onset: 226786-88-3098JnlvdsynEghvy connective tissue disease (4 sources)Arthrodesis status; Translations: [Arthrodesis status]Onset: 86-68-2637PsxhtanhVtaqu eye disorders (16 sources)Dry eyes; Translations: [Dry eye syndrome of bilateral lacrimal glands]Onset: 613974-12-3214JykwhwwqMurbw injuries and conditions due to external causes (7 sources)Injury of left knee; Translations: [Unspecified injury of left lower leg, initial encounter]Onset: 01-22-2018 Resolved: 025967-87-3561TevgtapmKkwsj injuries and conditions due to external causes (7 sources)Injury of right knee; Translations: [Unspecified injury of right lower leg, initial encounter]Onset: 01-22-2018 Resolved: 758942-05-0861JqyifisjTovht liver diseases (7 sources)Alkaline phosphatase raised; Translations: [Abnormal levels of other serum enzymes]Onset: 049315-77-9833XedayizvJidax nervous system disorders (4 sources)Cerebrospinal fluid leak; Translations: [Other cranial cerebrospinal fluid leak]Onset: 662351-34-0073NwhoedkzYqlfd nervous system disorders (4 sources)Cerebrospinal fluid rhinorrhea; Translations: [CSF rhinorrhea]Onset: 377373-69-1075AgyuwoohYgofe non-traumatic joint disorders (1 source)Pain in right knee; Translations: [Pain in joint, lower leg]Onset: 992313-79-8866MlsbayxnGgjqa non-traumatic joint disorders (7 sources)Shoulder pain; Translations: [Pain in right shoulder]Onset: 890649-73-6099NiobfwjwCqldl non-traumatic joint disorders (7 sources)Bilateral wrist pain; Translations: [Pain in right wrist]Onset: 857884-53-1661XwgjwyqkJyyog non-traumatic joint disorders (7 sources)Pain in right hip joint; Translations: [Pain in right hip]Onset: 452663-49-4882QsjdjkrjJiugk non-traumatic joint disorders (6 sources)Knee pain; Translations: [Pain in right knee]Onset: 01-22-2018 47-11-9277GmnssdzjVrczjdqh codes; unclassified (7 sources)Postmenopausal state; Translations: [Asymptomatic menopausal state] Onset: 485089-91-2108VjupgzsvGwsqqaoh codes; unclassified (9 sources)Altered mental status; Translations: [Altered mental status, unspecified]Onset: 60-15-4698NxmqwmyaBnizviliwx (except in labor) (20 sources)Sepsis due to Staphylococcus aureus; Translations: [Sepsis due to Methicillin susceptible Staphylococcus aureus]Onset: 79-18-2154WwphpvmrNyhqfpx disorders (18 sources)Disorder of thyroid gland; Translations: [Disorder of thyroid, unspecified]Onset: 99-24-1476NkbckgfvTktqiooiulxf (2 sources)Traumatic ulcer of left foot, unspecified ulcer stage (HCC)08-27-2024 Viral infection (8 sources)Disease caused by 2019-nCoV; Translations: [COVID-19]Onset: 31-57-8327Zywjbzov Results Test NameValueInterpretationReference RangeFacilityPerimetry studyon 09-27-2024 [facility] HealthcareRadiology Study observation (narrative)[facility] HealthcareAerobic cultureon 55-65-6114Ngykaxsphqixa or agent identified Nom (Unsp spec)Final reportAbnormalNOMS HealthcareNOMS HealthcareNo Panel Informationon 09-06-2024 Interpretation and review of laboratory resultsAbnormalNOMS HealthcarePerformed at: 01 - [facility] [address] [id number] Drafter Electrical: Angel Jacobs PhD, Phone: [phone] 09-06-2024 Bacteria identified Cx Nom (Unsp spec)CommentAbMary Free Bed Rehabilitation HospitalComment on above:Enterobacter cloacae complex Some Enterobacterales may develop resistance during therapy with third-generation cephalosporins. This resistance is most commonly seen with Citrobacter freundii complex, Enterobacter cloacae complex, and Klebsiella aerogenes. Isolates that initially test susceptible may become resistant within a few days after initiation of therapy. Testing subsequent isolates may be warranted if clinically indicated. (CLSI J949-Uh20) Light growth Bacteria identified Cx Nom (Unsp spec)Staphylococcus aureusAbMary Free Bed Rehabilitation HospitalComment on above:Based on susceptibility to oxacillin this isolate would be susceptible to: *Penicillinase-stable penicillins, such as: Cloxacillin, Dicloxacillin, Nafcillin *Beta-lactam combination agents, such as: Amoxicillin-clavulanic acid, Ampicillin-sulbactam, Piperacillin-tazobactam *Oral cephems, such as: Cefaclor, Cefdinir, Cefpodoxime, Cefprozil, Cefuroxime, Cephalexin, Loracarbef *Parenteral cephems, such as: Cefazolin, Cefepime, Cefotaxime, Cefotetan, Ceftaroline, Ceftizoxime, Ceftriaxone, Cefuroxime *Carbapenems, such as: Doripenem, Ertapenem, Imipenem, Meropenem Heavy growth Other Antibiotic [Susc]CommentUniversity of Missouri Health CareComment on above: S = Susceptible; I = [...] Tobramycin S Trimethoprim/Sulfa S S Vancomycin S [facility] BLOOD PRESSUREon 25-73-7120[place] [id number] Cardiology Report Signed Patient: MEG GEORGES MR#: [id number] : 1965 Acct:[id number] Age/Sex: 59 / F ADM Date: 08/10/24 Loc: CARD Attending Dr: Kailee CESPEDES Ordering Physician: Kailee Lopez Date of Service: 08/10/24 Procedure(s): CA segmental UE or LE SAMANTHA Accession Number(s): [id number] cc: MAHIN BERNAL ; Kailee Lopez [facility] Test Date: 2024-08-10 Pat Name: MEG GEORGES Department: Room: - Gender: Female Peer Health Promoter: : 1965 Requested By: Kailee Lopez Order Number: [id number] Reading MD: FELIPA ALANIS M.D. Interpretive Statements [...] By: FELIPA ALANIS Signed By: 08/10/24220608/10/242206 DD/ TD/TT: Handle Turner:TBHRadiology, Radiologist, - 08/10/[address] [address] Cardiology Report Signed Patient: MEG GEORGES MR#: [id number] : 1965 Acct:[id number] Age/Sex: 59 / F ADM Date: 08/10/24 Loc: CARD Attending Dr: Kailee CESPEDES Ordering Physician: Kailee Lopez Date of Service: 08/10/24 Procedure(s): CA segmental UE or LE SAMANTHA Accession Number(s): [id number] cc: MAHIN BERNAL ; Kailee Lopez [facility] Test Date: 2024-08-10 Pat Name: MEG GEORGES Department: Room: - Gender: Female Peer Health Promoter: : 1965 Requested By: Kailee Lopez Order Number: [id number] Reading MD: FELIPA ALANIS M.D. Interpretive Statements [...] By: FELIPA ALANIS Signed By: 08/10/24220608/10/242206 DD/ TD/TT: Handle Turner: [facility] HealthcareRadiology Study observation (narrative)[facility] HealthcareSEGMENTAL BLOOD PRESSUREOrdered By: Radiologist Radiology on 07-93-7954IL[facility] Work Phone: xr FOOT SAMANTHA MIN 3 VIEWSon 11-61-7094A[address] [address] XRay Report Signed Patient: MEG GEORGES MR#: [id number] : 1965 Acct:[id number] Age/Sex: 59 / F ADM Date: 08/10/24 Loc: CARD Attending Dr: Kailee CESPEDES Ordering Physician: Kailee Lopez Date of Service: 08/10/24 Procedure(s): XR foot SAMANTHA min 3V Accession Number(s): [id number] cc: MAHIN BERNAL ; Kailee Lopez [address] [id number] Patient Name: MEG GEORGES MRN: [id number] date: 1965 Sex: F Assigned Patient Location: CARD Current Patient Location: CARD Accession/Order Number: [id number] Exam Date: 08/10/2024 11:59 Report Date: 08/10/2024 [...] Crews M.D. 08/10/2024 12:04 PM Dictation Location: [place] [address] Electronically authenticated by: [id number] Date: 08/10/2024 12:04 Dictated By: Misa Crews M.D. Signed By: 08/10/24 1207 DD/ 1204 TD/TT: Handle Turner:TBHRadiology, Radiologist, - 08/10/2024 [place] [address] XRay Report Signed Patient: MEG GEORGES MR#: [id number] : 1965 Acct:[id number] Age/Sex: 59 / F ADM Date: 08/10/24 Loc: CARD Attending Dr: Kailee CESPEDES Ordering Physician: Kailee Lopez Date of Service: 08/10/24 Procedure(s): XR foot SAMANTHA min 3V Accession Number(s): [id number] cc: MAHIN BERNAL ; Kailee Lopez The [place] [address] Patient Name: MEG GEORGES MRN: [id number] date: 1965 Sex: F Assigned Patient Location: CARD Current Patient Location: CARD Accession/Order Number: [id number] Exam Date: 08/10/2024 11:59 Report Date: 08/10/2024 [...] Crews M.D. 08/10/2024 12:04 PM Dictation Location: [place] [address] Electronically authenticated by: [id number] Y Date: 08/10/2024 12:04 Dictated By: Misa Crews M.D. Signed By: 08/10/24 1207 DD/ 1204 TD/TT: Handle Turner: [facility] CareRadiology Study observation (narrative)[facility] Health CareXR FOOT SAMANTHA MIN 3 VIEWSOrdered By: Radiologist Radiology on 51-10-7688WKHNUniversity of Missouri Health Care Work Phone: Ophthalmic OCT panelon 42-31-2094XBLISSM Health [facility] Eye Images reviewed and comparison made to baseline, Images reviewed. To assess optic nerve function and for use in future follow-up. Reliability: good and adequate. Left Eye Images reviewed and comparison made to baseline, Images reviewed. To assess optic nerve function and for use in future follow-up. Reliability: good and adequate. Notes Advanced nerve fiber layer (NFL) thinning both eyes (OU).[facility]ly [facility] HospitalOphthalmic OCT panelon 84-51-9927Vkftptauy Study observation (narrative)[facility] Health CareED Note-Physicianon 24-55-9085XZ Note-PhysicianED Note-Physician Basic Information Time Seen: Jeff Clancy [...] for pain for 3 day(s), 15 tab(s), Refill(s)0, [id number], 165.1, cm, 04/16/24 10:29:00 EST, Height/Length Dosing, 74.4, kg, 04/16/24 10:29:00 EST, Weight Dosing Fall (W19.XXXA: Unspecified fall, initial encounter) Orders: morphine, 8 mg = 2 mL, Injection, IntraMuscular, Once, Stop date 04/16/24 11:04:00 EST, STAT, Startdate 04/16/24 11:04:00 EST, 04/16/24 11:04:00 EST ondansetron, [...] made to ensure accuracy, however, inadvertently computerized brownfield redevelopment site manager mistakes may be present. Appropriate healthcare PPE [...] failure Depression Depression Encepha (more content not included)...[facility]tering Health TroyComment on above:Result Comment: Electronically Signed By: Jeff Clancy PA-C\.br\Date and Time Signed: 04/16/2512:24 EST\.br\Electronically Co-Signed By: Garfield Rodriguez DO\.br\Date and Time Co-Signed: 04/17/24 07:01 ESTCT Spine Lumbar w/o Contraston 53-06-2846BO Spine Lumbar w/o ContrastExam Date/Time: 04/16/2024 11:38 EST Reason for Exam: [...] Terence Arcos MD Transcribed by: SINDY Technologist: [facility]St[facility] Clinical Summaryon 96-05-8396ON Clinical SummaryED Clinical Summary [place] [id number] ED Clinical Summary Person Information Name: MEG GEORGES Jesus[facility] Age: 59 Years : 1965 Sex: Female Language: Sri Lankan PCP: Jami Payne Marital Status: Visit Id: [...] 04/16/2024 14:34:45 04/16/2024 14:34:45 04/16/2024 14:34:45 ADDRESS: [address] [place] [address] [place] [phone] PHYS DOC NOTES: MEDICAL INFORMATION: Prescriptions Given: New Medications [id number], [address], [place] [id number], [phone] acetaminophen-oxycodone (Percocet 5 mg-325 mg oral tablet) [...] Mouth four times a day (before meals andat bedtime). sucralfate (sucralfate 1 g Tab) 120 tab(s), 0 Refill(s). tramadol (traMADOL 50 mg Tab) 1 Tablets By Mouth every 12 hours as needed for pain. Refills: 0. PATIENT EDUCATION INFORMATION: Instructions: Acute Back Pain, Adult Follow up: With: Address: When: Jami Onofre In 3 days 04/19/2024 DIAGNOSIS: Back pain; FallNormalFisher [facility] CenterED Patient Summaryon 04-16-2024 ED Patient SummaryED Patient Summary [place] [id number] Patient Discharge Instructions Person Information Name: MEG GEORGES Age: 59 Years Arrival Date: 04/16/2024 10:20:31 Discharge Diagnosis: Back pain; Fall Primary Care Physician: Jami Payne Provider Information Primary Provider: Garfield Rodriguez DO Advanced Loss Prevention Supervisor:Jeff Clancy PA-C The exam and treatment you received in the Emergency Department were for an urgent problem and are not intended as complete care. It is important that you follow up with a doctor, nurse practitioner,or physician???s pastry assistant for ongoing care. If your symptoms become worse or you do not improve asexpected and you are unable to reach your [...] opioids can be used to help relieve kvptaffi-xz-izjuld pain and are often prescribed following a [...] be struggling with addiction, tell your health memory care director and askfor guidance or call [facility]???S National Helpline at [phone]. v S (more content not included)...[facility] TroyPre-Arrival Noteon [id number]-Arrival NotePre-Arrival Note Pre-Arrival Summary Name: wilfred Current Date: 04/16/2024 10:22:29 EST Gender: Female Date of : Age: 60 Pre-Arrival Type: EMS ETA: 04/16/2024 10:38:00 EST Primary Care Physician: Presenting Problem: fall Pre-Arrival User: Shirin Miller RN Referring Source: Location: PA Completion Date/Time: 04/16/2024 10:09:00 [facility] Emergency Department Pre-Hospital Report Form Vital Signs: Pre-Hospital Report: Treatment in Route: Response to Treatment: Misc. Issues:[facility] Medicine Office/Clinic Note on [id number] Medicine Office/Clinic NoteFami Medicine Office/Clinic Note Chief Complaint 1m f/u HPI Staff 1m follow up Patient is here for follow up on hyperlipidemia: Do you have side effects from the medication? no Refill needed?: _ Yearly Lipid labs: 11/19/23 Patient is here for follow up on Diabetes. How often are you checking your blood sugars? _? resides at [facility] Do you have any of the following symptoms? Vision problems? no? Lightheadedness? no? Paresthesias, Ulcerations or sores? no? Patient is here for follow up on Thyroid Disease. Do you have any of the following symptoms? Change in energy level? no Weight change? no Heat/cold intolerance? no Hair/skin/nail changes? no Change in bowels? no Last TSH: [facility] to have labs completed prior to [...] fluids. food seems to be ok. ordered modifiedbarium swallow study RTC 3 months 2. Type [...] mg) Tab, 100 mcg (more content not included)...Normal [facility]aritan HospitalComment on above:Result Comment: Electronically Signed By: Jami Payne\.br\Date and Time Signed: 11/25/23 12:17 EDTPre- Visit Planningon [id number]-Visit PlanningPre-Visit Planning From: Mai Wilkins To: Jami Payne; Sent: 11/20/2023 11:04:45 EDT Subject: Pre-Visit Planning Due Date/Time: 11/20/2023 11:04:00 EDT Caller Name: MEG GEORGES; Caller Number: Cynthia , M Dorian Farrell. During a pre-visit planning [...] feel free to contact me at extension [phone]. Thank you! Mai Wilkins LPN Clinical Cover Mat Machine Operator [place] [address] Extension: [phone] [email or web address] From: Jami Payne To: Mai Wilkins; Sent: 11/21/2023 08:41:15 EDT Subject: RE: Pre-Visit Planning Caller Name: MEG GEORGES; Caller Number: Cynthia , M major depressive disorder, recurrent moderateNormalFisher [facility] Medicine Office/Clinic Noteon 16-09-3268Sowmpz Medicine Office/Clinic NoteFahaverhill pavilion behavioral [facility] Medicine Office/Clinic Note HPI Staff Meg is a 58 year old female presenting with D/C'd from [facility] on 10/21/23 Is currently at [facility] Establish Care: History: Any previous [...] today to establish care. recently moved to [facility] from [facility] Review of Systems PHQ Score Initial Depression [...] panel ordered 2. 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 [...] being treated for this with infusions in [place]. she was warned about the risks of [...] pain, # 30 tab(s), Refills(s) 0, Pharmacy: [facility], 165, cm, 10/24/23 13:15:00 EDT, Height/Length [...] glargine, 15 unit(s), SubCu (more content not included)...[facility] TroyComment on above:Result Comment: Electronically Signed By: Jami Payne\.br\Date and Time Signed: 10/24/23 14:29 EDTPre-Visit Planningon [id number]-Visit PlanningPre-Visit Planning From: Mai Wilkins To: Jami Payne; Sent: 10/23/2023 09:26:05 EDT Subject: Pre-Visit Planning Due Date/Time: 10/23/2023 09:26:00 EDT Caller Name: MEG GEORGES Jemal; Caller Number: M Dorian Farrell. During a pre-visit planning chart review, I noted the following medication documented in the medical record: brimonidine ophthalmic solution. Based on your medical judgement, can you please indicate what conditions indicate the necessity of the medication/treatment? I can update the Chronic Problem List with your response if you would like. -Additional comments: -Will determine during Office Visit In responding to this request, please exercise your independent professional judgement. The fact that a question is asked does not imply that any particular answer is desired or expected. If you have any questions, please feel free to contact me at extension [phone]. Thank you! Mai Wilkins LPN Clinical Cover Mat Machine Operator [place] [address] Extension: [phone] [email or web address] From: Jami Payne To: Mai Wilkins; Sent: 10/24/2023 14:29:06 EDT Subject: RE: Pre-Visit Planning Caller Name: MEG GEORGES; Caller Number: Blair Pretty sure I addressed all of her diagnosis you had questions on. Thank you [facility] TroyPre-Visit Planningon [id number]-Visit PlanningPre-Visit Planning From: ClaudetteRachelMai M To: Jami Payne; Sent: 10/23/2023 09:46:28 EDT Subject: Pre-Visit Planning Due Date/Time: 10/23/2023 09:46:00 EDT Caller Name: MEG GEORGES; Caller Number: Blair Dorian Farrell. During a pre-visit planning chart [...] feel free to contact me at extension [phone]. Thank you! Mia Wilkins LPN Clinical Cover Mat Machine Operator [place] [address] Extension: [phone] [email or web address] From: Jami Payne To: Mai Wilkins; Sent: 10/23/2023 12:43:08 EDT Subject: RE: Pre-Visit Planning Caller Name: MEG GEORGES; Caller Number: Blair chronic kidney disease stage 3aNoTrumbull Regional Medical CenterPre-Visit PlanningPre-Visit Planning From: Mai Wilkins Blair To: Jami Payne; Sent: 10/23/2023 09:33:52 EDT Subject: Pre-Visit Planning Due Date/Time: 10/23/2023 09:33:00 EDT Caller Name: MEG GEORGES; Caller Number: Blair Dorian Farrell. During a pre-visit planning chart review, I noted the following medication documented in the medical record: divalproex. Based on your medical judgement, can you please indicate what conditions indicate the necessity of the medication/treatment? I can update the Chronic Problem List with your response if you would like. -Additional comments: -Will determine during Office Visit In responding to this request, please exercise your independent professional judgement. The fact that a question is asked does not imply that any particular answer is desired or expected. If you have any questions, please feel free to contact me at extension [phone]. Thank you! Mai Wilkins LPN Clinical Cover Mat Machine Operator [place] [address] Extension: [phone] [email or web address] From: Jami Payne To: Mai Wilkins; Sent: 10/23/2023 10:45:18 EDT Subject: RE: Pre-Visit Planning Caller Name: MEG GEORGES; Caller Number: Blair will determine during visit. thank [facility] HospitalPre-Visit PlanningPre-Visit Planning From: Mai Wilkins To: Jemima SIMS Jami Jemal; Sent: 10/23/2023 09:37:18 EDT Subject: Pre-Visit Planning Due Date/Time: 10/23/2023 09:37:00 EDT Caller Name: MEG GEORGES; Caller Number: Blair Dorian Penadi. During a pre-visit planning chart review, I noted the following medication documented in the medical record: duloxetine. Based on your medical judgement, can you please indicate what conditions indicate the necessity of the medication/treatment? I can update the Chronic Problem List with your response if you would like. -Additional comments: -Will determine during Office Visit In responding to this request, please exercise your independent professional judgement. The fact that a question is asked does not imply that any particular answer is desired or expected. If you have any questions, please feel free to contact me at extension [phone]. Thank you! Mai Wilkins LPN Clinical Cover Mat Machine Operator [place] [address] Extension: [phone] [email or web address] Physician Orderon [id number] Order [id number]#[id number] Health TroyRespiratory Panel by PCRon 60-33-8650Gpgwqhmbop DNA CAL+non-probe Ql (Nph) Not detectedNoTrumbull Regional Medical CenterComment on above:Order Comment: per charanjit Sanches had talked to Riva earlier in the day and they want the swab placed into the media to run the specimen [facility] 05/27/2023 17:26:25 EDT Result Comment: Testing was performed using nucleic acid amplification including Influenza A, Influenza A H1, Influenza A H3, Influenza B, RSV A, RSV B, Adenovirus, Human Metapneumovirus, Parainfluenza 1,2,3, and 4, Rhinovirus, Bordetella parapertussis/bronchiseptica, Bordetella holmesii, and Bordetella pertussis.Performed By: #### [id number] ####Reece [place] [address] [place], [id number]. parapertussis DNA CAL+probe Ql (Upper resp)Not detectedNormalNot DetectedGood Samaritan HospitalComment on above:Order Comment: per charanjit Sanches had talked to Riva earlier in the day and they want the swab placed into the media to run the specimen [facility] 05/27/2023 17:26:25 EDTPerformed By: #### [id number] ####Reece [facility] Cdmsnpxqiv[address] [facility], VP[address]S. pertussis DNA CAL+probe Ql (Upper resp)Not detectedNormalNot DetectedGood Samaritan HospitalComment on above:Order Comment: per charanjit Sanches had talked to Riva earlier in the day and they want the swab placed into the media to run the specimen [facility] 05/27/2023 17:26:25 EDTPerformed By: #### [id number] ####Reece [facility] [address] [facility], [place]ZPBHC H1 RNA CAL+non-probe Ql (Nph)Not detectedNormalGood Samaritan Hospital Comment on above:Order Comment: per charanjit Sanches had talked to Riva earlier in the day and they want the swab placed into the media to run the specimen [facility] 05/27/2023 17:26:25 EDTPerformed By: #### [id number] ####Reece [facility] Wtlyuppc[address] AveNorwalk, [place]WQCLK H3 RNA CAL+non-probe Ql (Nph)Not detectedNoTrumbull Regional Medical Center Comment on above:Order Comment: per charanjit Sanches had talked to Riva earlier in the day and they want the swab placed into the media to run the specimen [id number] 05/27/2023 17:26:25 EDTPerformed By: #### [id number] ####Reece [place] [address] [address]Norwalk, [id number] RNA CAL+non-probe Ql (Nph)Not detectedNormMercy Health St. Elizabeth Youngstown HospitalComment on above:Order Comment: per charanjit Sanches had talked to Riva earlier in the day and they want the swab placed into the media to run the specimen [id number] 05/27/2023 17:26:25 EDTPerformed By: #### [id number] ####[place] [address] [address] AveNorplainview hospitalk, [id number] RNA CAL+non-probe Ql (Nph)Not detectedNormMercy Health St. Elizabeth Youngstown HospitalComment on above:Order Comment: per charanjit Sanches had talked to Riva earlier in the day and they want the swab placed into the media to run the specimen [id number] 05/27/2023 17:26:25 EDTPerformed By: #### [id number] ####Reece [place] [address] [address]Norwalk, JE[address]Spkth Metapneumovirus Not detectedNormMercy Health St. Elizabeth Youngstown HospitalComment on above:Order Comment: per charanjit Sanches had talked to Riva earlier in the day and they want the swab placed into the media to run the specimen [id number] 05/27/2023 17:26:25 EDT Result Comment: This test result should be correlated with clinical presentations and medical history by a healthcare provider to determine its clinical significance.Performed By: #### [id number] ####Reece [facility] Ituekdrhoh[address] [facility], [id number] virus 1 RNA CAL+non-probe Ql (Nph)Not detectedNormMercy Health St. Elizabeth Youngstown HospitalComment on above:Order Comment: per charanjit Sanches had talked to Riva earlier in the day and they want the swab placed into the media to run the specimen [id number] 05/27/2023 17:26:25 EDTPerformed By: #### [id number] ####[place] [address] [facility], [place]Iujpimbldfhxd virus 2 RNA CAL+non-probe Ql (Nph)Not detectedNormMercy Health St. Elizabeth Youngstown HospitalComment on above:Order Comment: per charanjit Sanches had talked to Riva earlier in the day and they want the swab placed into the media to run the specimen [id number] 05/27/2023 17:26:25 EDTPerformed By: #### [id number] ####Reece [address], DQ[address]Ezhcvezqmwyua virus 3 RNA CAL+non-probe Ql (Nph)Not detectedNormMercy Health St. [facility] Comment on above:Order Comment: per charanjit Sanches had talked to Riva earlier in the day and they want the swab placed into the media to run the specimen [id number] 05/27/2023 17:26:25 EDTPerformed By: #### [id number] ####Reece [facility] Mkcppjmqih656 [facility], EW[address] Parainfluenza virus 4 RNA CAL+non-probe Ql (Nph)Not detectedNormMercy Health St. Elizabeth Youngstown HospitalComment on above:Order Comment: per charanjit Sanches had talked to Riva earlier in the day and they want the swab placed into the media to run the specimen [id number] 05/27/2023 17:26:25 EDTPerformed By: #### [id number] ####Reece [facility] [address] [facility], [place] [address]Umnq Panel Intrl QCPassKettering Health TroyComment on above: Order Comment: per charanjit Sanches had talked to Riva earlier in the day and they want the swab placed into the media to run the specimen [id number] 05/27/2023 17:26:25 EDTPerformed By: #### [id number] ####Reece [facility] Kznqkbgyur656 [facility] YV[address]Bjxgixyquq+Enterovirus RNA CAL+non-probe Ql (Nph)Not detectedNoTrumbull Regional Medical CenterComment on above:Order Comment: per charanjit Sanches had talked to Riva earlier in the day and they want the swab placed into the media to run the specimen [id number] 05/27/2023 17:26:25 EDTPerformed By: #### [id number] ####Reece [facility] [address] [place] [address] [id number] RNA CAL+non-probe Ql (Nph)DetectedAbClermont County HospitalComment on above:Order Comment: per charanjit Sanches had talked to Riva earlier in the day and they want the swab placed into the media to run the specimen [id number] 05/27/2023 17:26:25 EDTPerformed By: #### [id number] ####Reece [facility] Qr[address] [place], [place] [address]cedrick [id number] CBC W/ AUTO DIFFon 03-29-2023 Basophils (Bld) [#/Vol]0.0 10*3/uLNOMS HealthcareBasophils/100 WBC (Bld)0.2 %0.0 - 2.0 %NOMS HealthcareEOS ABSOLUTE0.9HighNOMS HealthcareEosinophils/100 WBC (Bld)7.7 %0.0 - 8.0 %NOMS HealthcareErythrocyte distribution width (RBC) [Ratio] 14.1 %10.9 - 14.2 %NOMS HealthcareHematocrit (Bld) [Volume fraction]32.0 %Low 34.0 - 46.0 %NOMS HealthcareHemoglobin (Bld) [Mass/Vol]10.3 g/dLUniversity HospitalInterpretation and review of laboratory resultsAbnormalUniversity of Missouri Health Care LYMPH ABSOLUTE2.5NOMS Glenbeigh HospitalLymphocytes/100 WBC (Bld)22.1 %14.0 - 50.0 %[facility] HospitalH (RBC) [Entitic mass]30.0 pg27.0 - 34.0 pgSoutheast Missouri HospitalHC (RBC) [Mass/Vol]31.9 g/dLUniversity of Missouri Health CareMCV (RBC) [Entitic vol]94.1 fL80.0 - 100.0 fLUniversity of Missouri Health CareMONO ABSOLUTE1.0NONY HealthcareMonocytes/100 WBC (Bld)9.2 %4.0 - 14.0 %[facility] CareNEUTRO ABSOLUTE6.8NONevada Regional Medical CenterNEUTRO AUTO60.8 % 36.0 - 75.0 %[facility] HealthcarePlatelet mean volume (Bld) [Entitic vol]7.5 fL6.4 - 10.8 fLSALT LAKE BEHAVIORAL HEALTH HOSPITAL HealthcarePlatelets (Bld) [#/Vol]270.0 10*3/uLSALT LAKE BEHAVIOR[facility]ALTH [facility] HealthcareRBC (Bld) [#/Vol]3.4 10*6/uLLowSALT LAKE BEHAVIORAL HEALTH [facility] HealthcareWBC (Bld) [#/Vol]11.3 10*3/[facility] Hers[facility] Medical CenterOriginal Ordering Provider: MD RUFUS SHENKindred Hospital Philadelphia - Havertown CT CERVICAL SPINE WO CONTRASTon [id number] CERVICAL SPINE WO CONTRAST EXAMINATION: CT CERVICAL [...] to 8 to 9 mm compatible with wlkm-zx-ltkhrzhr central stenosis. No neural foraminal stenosis. C3-C4: [...] Signed by: Chance Hugo DO 11/23/22 Final resultNormalGreene Memorial HospitalXR CERVICAL SPINE (4-5 VIEWS)on 69-79-2642CH CERVICAL SPINE (4-5 VIEWS)EXAMINATION: 4 XRAY VIEWS OF THE CERVICAL SPINE [...] Signed by: Clark Veliz MD 04/03/22 Final resultNormalMercy Ronald Reagan Ucla Medical CenterPrior dens fracture with posterior fixation at C1-2 without complication. Multilevel degenerative facet hypertrophy. [facility] CONSOLIDATEDEXAMINATION: 4 XRAY VIEWS OF THE CERVICAL SPINE [...] The lung apices are without acute process. [facility] Clark Raymond MD - 04/03/2022 EXAMINATION: 4 XRAY VIEWS [...] C1-2 without complication. Multilevel degenerative facet hypertrophy. Jongla Phone: XR CERVICAL SPINE (4-5 VIEWS)Ordered By: Clark Veliz on 42-69-3034WUD Fugate.cl Phone: XR CERVICAL SPINE (4-5 VIEWS)on [id number] Study observation (narrative)Jongla Phone: XR CERVICAL SPINE FLEXION AND EXTENSIONon 12-06-2021 Similar angulated pathologic dens fracture with posterior fixation C1-C2. [facility] CONSOLIDATEDEXAMINATION: 2 XRAY VIEWS OF THE CERVICAL SPINE 12/04/2021 10:31 am COMPARISON: 09/23/2021, 09/25/2021 HISTORY: ORDERING SYSTEM PROVIDED HISTORY: Atlantoaxial instability TECHNOLOGIST PROVIDED HISTORY: post-op FINDINGS: Similar appearance of fixation hardware posteriorly at C1-C2. Pathologic dens fracture with similar angulation in comparison to prior exams. Somewhat limited motion without definite dynamic instability on flexion/extension views. There is a tracheostomy tube in place. Similar draw-xe-sepvthsf degenerative changes lower cervical spine. No localized prevertebral soft tissue swelling. [facility] Jose Briceno MD - 12/06/2021 EXAMINATION: 2 XRAY VIEWS [...] is a tracheostomy tube in place. Similar jfpa-ql-ipxvnidv degenerative changes lower cervical spine. No localized prevertebral soft tissue swelling. IMPRESSION: Similar angulated pathologic dens fracture with posterior fixation C1-C2. Jongla Phone: XR CERVICAL SPINE FLEXION AND EXTENSIONOrdered By: Jose Chan on [id number] Fugate.cl Phone: xr CERVICAL SPINE FLEXION AND EXTENSIONon 12-04-2021 Radiology Study observation (narrative)ARASELI [facility] Grovo Work Phone: basic Metabolic Panelon 33-72-8625Ycaib gap [Moles/Vol]15.1 mmol/LHigh6.0-15.0The Surgical Hospital At SouthwoodsComment on above:Performed By: #### CBC, BMP #### [facility] [address] [place] [address] USACalcium [Mass/Vol]9.6 mg/dLNormal8.2-10.2FThe MetroHealth SystemComment on above:Result Comment: PERFORMED BY: [place] [address] PATHOLOGIST MACHINE STRIPER ALEYDA GUERRIER M.D.Performed By: #### CBC, BMP #### [place] [address] USAChloride [Moles/Vol]97 mmol/XUccnyq13-595ZxnbolokzThe Surgical Hospital At SouthwoodsComment on above:Performed By: #### CBC, BMP #### [facility] [address] [place] [address] USACO2 [Moles/Vol]25.4 mmol/XBljtil77.0-30.0The [facility] Hospital At SouthwoodsComment on above:Performed By: #### CBC, BMP #### [facility] [address] [place] [address] USACreatinine [Mass/Vol]0.82 mg/dLNormal0.44-1.03The [facility] Hospital At SouthwoodsComment on above:Performed By: #### CBC, BMP #### [facility] [address] [place] [id number] USAEstimated GFR ( Jesusita> 60NormMemorial Health System Selby General HospitalComment on above:Result Comment: GFR estimated reference range: According to KDOQI guidelines, <60 ml/min/1.73m2 is sufficient to diagnose a patient with chronic kidney disease.Performed By: #### CBC, BMP #### [facility] [address] [place], [place] [id number] USAEstimated GFR (Non- Am> 60NormMemorial Health System Selby General HospitalComment on above:Performed By: #### CBC, BMP #### [facility] [address] [place] [address] USAGlucose [Mass/Vol]105 mg/tHNlaz87-414ZnaslaezkThe Surgical Hospital At SouthwoodsComment on above:Result Comment: Random Glucose Reference Range is dependent on time and content of last meal. Glucose of more than 200 mg/dL in a nonstressed, ambulatory subject supports the diagnosis of Diabetes Mellitus. ADA recommended reference rangePerformed By: #### CBC, BMP #### [facility] [address] [place] [address] USAPotassium [Moles/Vol]4.5 mmol/LNormal3.5-5.1FThe MetroHealth SystemComment on above:Performed By: #### CBC, BMP #### [facility] [address] [place] [address] USASodium [Moles/Vol]133 mmol/OLzk382-762IbfppgthzThe Surgical Hospital At SouthwoodsComment on above:Performed By: #### CBC, BMP #### [facility] [address] [place] [address] USAUrea nitrogen [Mass/Vol]31 mg/dLHigh9-23The [facility] Hospital At SouthwoodsComment on above:Performed By: #### CBC, BMP #### [facility] [address] [place] [address] USABasophils Auto (Bld) [#/Vol]Ordered By: Rufus Shen on 59-81-7664Njjefcnto (Bld) [#/Vol]0.0 10*3/uL0.0-0.2FThe MetroHealth SystemBasophils/100 WBC Auto (Bld)Ordered By: Rufus Shen on 11-22-2021 Basophils/100 WBC (Bld)0.3 %.The [facility] Hospital At SouthwoodsBlood hemoglobin measurement (mass/volume)Ordered By: Rufus Shen on 51-13-6442Ttbcdpchgu (Bld) [Mass/Vol]10.1 g/dL11.8-15.4FThe MetroHealth SystemBlcannon falls hospital and clinic leukocytes automated count (number/volume)Ordered By: Rufus Shen on 81-05-1109SXX (Bld) [#/Vol]12.2 10*3/uL4.5-11.0The [facility] SouthwoodsComplete Blood Count Auto Diffon 22-01-5126Zmeiylebj (Bld) [#/Vol]0.0 10*3/uLNormal0.0-0.2FThe MetroHealth SystemComment on above:Result Comment: PERFORMED BY: [place] [address] PATHOLOGIST MACHINE STRIPER ALEYDA GUERRIER M.D.Performed By: #### CBC, BMP #### [facility] [address] [place] [address] USABasophils/100 WBC (Bld)0.3 %Normal.The [facility] Hospital At SouthwoodsComment on above:Performed By: #### CBC, BMP #### [place] [address] USAEosinophils (Bld) [#/Vol]0.2 10*3/uLNormal0.0-0.45 The [facility] Hospital At SouthwoodsComment on above:Performed By: #### CBC, BMP #### [place] [address] USAEosinophils/100 WBC (Bld)2.0 %Normal.The [facility] Hospital At SouthwoodsComment on above:Performed By: #### CBC, BMP #### [place] [address] USAErythrocyte distribution width (RBC) [Ratio]19.2 %High 11.9-15.3FThe MetroHealth SystemComment on above:Performed By: #### CBC, BMP #### [facility] [address] [place] [address] USAHematocrit (Bld) [Volume fraction]32.0 %Low34.0-46.4 The [facility] Hospital At SouthwoodsComment on above:Performed By: #### CBC, BMP #### [place] [address] USAHemoglobin (Bld) [Mass/Vol]10.1 g/dLLow11.8-15.4FThe MetroHealth SystemComment on above:Performed By: #### CBC, BMP #### [facility] [address] [place] [address] USALymphocytes (Bld) [#/Vol]2.2 10*3/uLNormal1.00-4.8 The [facility] Hospital At SouthwoodsComment on above:Performed By: #### CBC, BMP #### [facility] [address] [place] [address] USALymphocytes/100 WBC (Bld)18.2 %Normal.The [facility] Hospital At SouthwoodsComment on above:Performed By: #### CBC, BMP #### [address]H (RBC) [Entitic mass]27.0 nvWttmoe53.7-34.3FThe MetroHealth SystemComment on above:Performed By: #### CBC, BMP #### [address] (RBC) [Entitic vol]85.7 pARvuqbi72-547IcnipudecThe Surgical Hospital At SouthwoodsComment on above:Performed By: #### CBC, BMP #### [place] [address] USAMean Corpuscular HGB Conc31.5 g/dLLow32.0-35.0The [facility] SouthwoodsCommclaren greater [facility] on above:Performed By: #### CBC, BMP #### [place] [address] USAMonocytes (Bld) [#/Vol]0.6 10*3/uLNormal0.0-0.8The [facility] SouthwoodsCommclaren [facility] on above:Performed By: #### CBC, BMP #### [place] [address] USAMonocytes/100 WBC (Bld)5.3 %Normal.The [facility] Hospital At SouthwoodsComment on above:Performed By: #### CBC, BMP #### [place] [address] USANeutrophils (Bld) [#/Vol]9.0 10*3/uLHigh1.8-7.7FThe MetroHealth SystemComment on above:Performed By: #### CBC, BMP #### [facility] [address] [place] [address] USANeutrophils/100 WBC (Bld)74.2 %Normal.The [facility] Hospital At SouthwoodsComment on above:Performed By: #### CBC, BMP #### [facility] [address] [place] [address] USANucleated RBC/100 WBC (Bld) [Ratio]0.0 %Normal0-0.5 The [facility] Hospital At SouthwoodsComment on above:Performed By: #### CBC, BMP #### [facility] [address] [place] [address] USAPlatelet mean volume (Bld) [Entitic vol]7.4 fLNormal 6.3-10.7FThe MetroHealth SystemComment on above:Performed By: #### CBC, BMP #### [place] [address] USAPlatelets (Bld) [#/Vol]543 10*3/aJQigq362-308VcymakwtiThe Surgical Hospital At SouthwoodsComment on above:Performed By: #### CBC, BMP #### [place] [address] USARBC (Bld) [#/Vol]3.74 10*6/uLNormal3.60-5.00The [facility] Hospital At SouthwoodsComment on above:Performed By: #### CBC, BMP #### [place] [address] USAWBC (Bld) [#/Vol]12.2 10*3/uLHigh4.5-11.0The [facility] Hospital At SouthwoodsComment on above:Performed By: #### CBC, BMP #### [place] [address] USACreatinine and Glomerular filtration rate.predicted panel (S/P/Bld)Ordered By: Rufus Shen on 99-21-5448Jvnjwawhzm [Mass/Vol]0.82 mg/dL 0.44-1.03The [facility] Hospital At SouthwoodsEosinophils Auto (Bld) [#/Vol]Ordered By: Rufus Shen on 85-14-5699Vblwregjyla (Bld) [#/Vol]0.2 10*3/uL0.0-0.45 The [facility] SouthwoodsEosinophils/100 WBC Auto (Bld)Ordered By: Rufus Shen on 20-89-8016Vmblwpbrqqo/100 WBC (Bld)2.0 %.The [facility] Hospital At SouthwoodsErythrocyte distribution width Auto (RBC) [Ratio]Ordered By: Rufus Shen on 17-75-4514Htuyjsdueve distribution width (RBC) [Ratio]19.2 % 11.9-15.3FThe MetroHealth SystemEstimated glomerular filtration rate (GFR) non- AmericanOrdered By: Rufus Shen on 68-94-8888TFZ/1.73 sq M.predicted among non-blacks MDRD (S/P/Bld) [Vol rate/Area]> 60 mL/MinThe Surgical Hospital At SouthwoodsHematocrit Auto (Bld) [Volume fraction]Ordered By: Rufus Shen on 72-08-6259Ainlcimsbe (Bld) [Volume fraction]32.0 %34.0-46.4FThe MetroHealth SystemLaboratory - Hematology and Cell countsOrdered By: Rufus Shen on 17-03-4537Cssxsyipg RBC/100 WBC (Bld) [Ratio]0.0 %0-0.5FThe MetroHealth SystemLymphocytes Auto (Bld) [#/Vol]Ordered By: Rufus Shen on 79-75-0029Vycgoclhoze (Bld) [#/Vol]2.2 10*3/uL1.00-4.8The [facility] Hospital At SouthwoodsLymphocytes/100 WBC Auto (Bld)Ordered By: Rufus Shen on 16-53-0543Axhqoiomlin/100 WBC (Bld)18.2 %.[facility] Auto (RBC) [Entitic mass]Ordered By: Rufus Shen on 78-79-4419PTL (RBC) [Entitic mass]27.0 pg24.7-34.3FMercy Health Auto (RBC) [Mass/Vol]Ordered By: Rufus Shen on 65-29-2406KFFS (RBC) [Mass/Vol]31.5 g/dL 32.0-35.0The [facility] Hospital At SouthwoodsMCV Auto (RBC) [Entitic vol]Ordered By: Rufus Shen on 73-06-0040YUA (RBC) [Entitic vol]85.7 xX78-770GassnidkpThe Surgical Hospital At SouthwoodsMonocytes Auto (Bld) [#/Vol]Ordered By: Rufus Shen on 84-50-6321Ucweecyff (Bld) [#/Vol]0.6 10*3/uL0.0-0.8The [facility] Hospital At SouthwoodsMonocytes/100 WBC Auto (Bld)Ordered By: Rufus Shen on 11-22-2021 Monocytes/100 WBC (Bld)5.3 %.The [facility] Hospital At SouthwoodsNeutrophils Auto (Bld) [#/Vol]Ordered By: Rufus Shen on 56-62-3206Fixweeqbvlo (Bld) [#/Vol]9.0 10*3/uL1.8-7.7FThe MetroHealth SystemNeutrophils/100 WBC Auto (Bld) Ordered By: Rufus Shen on 08-58-4922Guuhryuoldm/100 WBC (Bld)74.2 %.The [facility] SouthwoodsNo Panel InformationOrdered By: Rufus Shen on 91-83-4698Yzbstbzlq GFR ()> 60 mL/MinThe Surgical Hospital At SouthwoodsComment on above:GFR estimated reference range: According to KDOQI guidelines, <60 ml/min/1.73m2 is sufficient todiagnose a patient with chronic kidney disease.Pharmacy Creatinine Clearance (ChemN/Peoples HospitalPlatelet mean volume Auto (Bld) [Entitic vol]Ordered By: Rufus Shen on 06-50-1500Zbrvvskk mean volume (Bld) [Entitic vol]7.4 fL6.3-10.7FThe MetroHealth SystemPlatelets Auto (Bld) [#/Vol]Ordered By: Rufus Shen on 72-36-0369Rjvvdijmx (Bld) [#/Vol]543 10*3/gW331-794QmzqnhoapThe Surgical Hospital At SouthwoodsRBC Auto (Bld) [#/Vol]Ordered By: Rufus Shen on 02-03-1543VUL (Bld) [#/Vol]3.74 10*6/uL3.60-5.00[facility] Medical Centererum or plasma anion gap determinationOrdered By: Rufus Shen on 99-35-0588Dhxbf gap [Moles/Vol]15.1 mmol/L6.0-15.0[facility] Medical Centererum or plasma calcium measurement (mass/volume)Ordered By: Rufus Shen on 35-29-0823Xvyscfw [Mass/Vol]9.6 mg/dL8.2-10.2FAultman Alliance Community Hospitalerum or plasma chloride measurement (moles/volume)Ordered By: Rufus Shen on 11-22-2021 Chloride [Moles/Vol]97 mmol/N84-082KoragxznlKettering Health Behavioral Medical Centererum or plasma glucose measurement (mass/volume)Ordered By: Rufus Shen on 11-22-2021 Glucose [Mass/Vol]105 mg/gR77-428VhhxugdigThe Surgical Hospital At SouthwoodsComment on above:ADA recommended reference rangeRandom Glucose Reference Range is dependent on time and content of last meal. Glucose of more than 200 mg/dL in a nonstressed, ambulatory subject supports the diagnosisof Diabetes Mellitus.Serum or plasma potassium measurement (moles/volume)Ordered By: Rufus Shen on 77-97-4959Qykywokkc [Moles/Vol]4.5 mmol/L3.5-5.1FAultman Alliance Community Hospitalerum or plasma sodium measurement (moles/volume)Ordered By: Rufus Shen on 20-53-4883Dlxxys [Moles/Vol]133 mmol/H869-891JrmifsssmKettering Health Behavioral Medical Centererum or plasma total carbon dioxide measurement (moles/volume)Ordered By: Rufus Shen on 73-70-2000HU9 [Moles/Vol]25.4 mmol/L22.0-30.0[facility] Medical Centererum or plasma urea nitrogen measurement (mass/volume)Ordered By: Rufus Shen on 60-89-7521Kqog nitrogen [Mass/Vol]31 mg/dL9-23The [facility] Hospital At SouthwoodsBASIC METABOLIC PANELon 01-16-8875Gbyel gap [Moles/Vol]10 mmol/LNormal<=30UnWright-Patterson Medical CenterComment on above:Performed By: #### [id number] #### [facility] ([place]) [address] [place] [address]Ucchknv [Mass/Vol]9.6 mg/dLNormal8.6-10.3UnWright-Patterson Medical CenterComment on above:Performed By: #### [id number] #### [facility] ([facility] [place]) [address] [address]Fymkpctx [Moles/Vol]101 mmol/ZRntdno00-002JvjwiuewldWright-Patterson Medical CenterComment on above:Performed By: #### [id number] #### [facility] ([facility] [place]) [address] [address]MI5 [Moles/Vol]28 mmol/PFpmacw65-02MmdbnukfkrWright-Patterson Medical CenterComment on above:Performed By: #### [id number] #### [facility] ([facility]) [address] [place] [address]Vxtzukzsaz [Mass/Vol]0.71 mg/dLNormal0.60-1.20UnWright-Patterson Medical CenterComment on above:Performed By: #### [id number] #### [facility] ([facility] [place]) [address] [address]NNHZXEZUYI FILTRATION RATE ML/MIN/1.73 SQ M.AHZTCZFWP49.2 mL/min/1.73m*2Normal>60.0UnWright-Patterson Medical CenterComment on above: Result Comment: [facility]???s estimated glomerular filtration rate (eGFR) will [...] potential consequences that do not disproportionately affect anyone group of individuals.Performed By: #### [id number] #### [facility] ([facility]) [address] [place], [place] [address]Gawoklw [Mass/Vol]74 mg/xDBvywpc39-408XvxqpazoyuWright-Patterson Medical CenterComment on above:Performed By: #### [id number] #### [facility] ([facility]) [address] [place], [place] [address]Togzhmbqo [Moles/Vol]4.3 mmol/LNormal3.5-5.1UnWright-Patterson Medical CenterComment on above:Performed By: #### [id number] #### [facility] ([facility]) [address] [place], [place] [address]Dexxyp [Moles/Vol]139 mmol/ENozsha821-783WbsihqnnbbWright-Patterson Medical CenterComment on above:Performed By: #### [id number] #### [facility] ([facility]) [address] [place], [place] [address]Kdsm nitrogen [Mass/Vol]36 mg/dLHigh7-25UnWright-Patterson Medical CenterComment on above:Performed By: #### [id number] #### [facility] ([facility] [place]) [address] [place], [place] [address]QLES NITROGEN/CREATININE (MASS RATIO) IN SER/PLAS50.70Normal [facility] HospitalComment on above:Performed By: #### [id number] #### [facility] ([facility]) [address] [place], [place] [address]FAKGHOWXVEnv 06-72-9923Tzzdcxptvf (Bld) [Volume fraction]33.5 % Low36.0-48.0UnWright-Patterson Medical CenterComment on above:Performed By: #### [id number] #### [facility] ([facility]) [address] [place], [place] [address]HBESPERPLRdz 97-89-1765Jyjvscnxca (Bld) [Mass/Vol]10.7 g/dLLow 12.0-15.0UnWright-Patterson Medical CenterComment on above:Performed By: #### [id number] #### [facility] ([facility]) [address] [place], [place] [address]RIKWPMYG BLOOD GAS WITH ICAon 88-60-9033VLMW EXCESS-7 mmol/LLow -2-3The [facility] HospitalComment on above:Performed By: #### [id number] ####[facility] [place] [address], USADELIVERY SYSTEMSVENTNoAultman Alliance Community Hospital Comment on above:Performed By: #### [id number] ####[facility] [facility] [place] [address], AUKLYM008 %NormalThe Newark HospitalComment on above:Performed By: #### [id number] ####[facility] [facility] [place] [address], [facility], ROSWELLHCO3 (Bld) [Moles/Vol]17 mmol/VExl40-63Hft [facility] HospitalComment on above:Performed By: #### [id number] ####[facility] [facility] [place] [address], USAIONIZED CALCIUM1.20 mmol/LNormal1.13-1.32The [facility] HospitalComment on above:Performed By: #### [id number] ####[facility] [facility] [place] [address], [place] MIN VOLUME6.7NormalThChildren's Hospital of ColumbusComment on above: Performed By: #### [id number] ####[facility] [facility] [place] [address], USAMODALITYVENTNoAultman Alliance Community HospitalComment on above:Performed By: #### [id number] ####[facility] [facility] [place] [address], USAOxygen (Bld) [Partial pressure] 163 mm[Hg]Critically nrcx93-332Mvq [facility] HospitalComment on above:Performed By: #### [id number] ####[address] [place] [address], USAOxygen saturation in Blood97.1 %High94.0-97.0 The [facility] HospitalComment on above:Performed By: #### [id number] ####[facility] [address], [place] YHD338 wjGeNiq18-56Jib [facility] HospitalComment on above: Performed By: #### 61210 ####[facility] [facility] [place] [address], USAPEEP8.0 EGU05EjxcbzKdsAultman Alliance Community HospitalComment on above:Performed By: #### [id number] ####[facility] [facility] [place] [address], USAPF JCYUF485 mmHgNoAultman Alliance Community HospitalComment on above:Performed By: #### 99945 ####[facility] [facility] [place] [address], [place] pH (Bld)7.39 [pH]Normal7.35-7.45The [facility] HospitalComment on above:Performed By: #### [id number] ####[facility] [place] [address], USAPRESSURE [id number] Alliance Community HospitalComment on above:Performed By: #### [id number] ####[facility] [facility] [place] [address], USABASE EXCESS-7 mmol/LLow-2-3The [facility] HospitalComment on above:Performed By: #### 73882 ####[facility] [place] [address], USADELIVERY SYSTEMSVENTNoAultman Alliance Community Hospital Comment on above:Performed By: #### 58551 ####[facility] [place] [address].[place] [address], LABHUE421 %NormalThe [facility] HospitalComment on above:Performed By: #### 85413 ####[facility] [place] [address], [facility], ROSWELLHCO3 (Bld) [Moles/Vol]17 mmol/MWim63-29Spc [facility] HospitalComment on above:Performed By: #### 54489 ####[facility] [place] [address], [facility], ROSWELLIONIZED CALCIUM1.15 mmol/LNormal1.13-1.32The [facility] HospitalComment on above:Performed By: #### 11899 ####[facility] [facility] [place] [address], [place] MIN VOLUME8.2NormalThe [facility] HospitalComment on above: Performed By: #### [id number] ####[facility] [place] [address], [facility], ROSWELLMODALITYACNormalThe [facility] Comment on above:Performed By: #### [id number] ####[facility] [place] [address], [facility], ROSWELLOxygen (Bld) [Partial pressure]158 mm[Hg]Critically ndxg87-236Erl [facility] HospitalComment on above:Performed By: #### 42980 ####[facility] [place] [address], [facility], ROSWELLOxygen saturation in Blood97.6 %High94.0-97.0 The [facility] HospitalComment on above:Performed By: #### 62380 ####[facility] [place] [address], [facility] [place] NFX500 mqHtWnv24-11Kwi [facility] HospitalComment on above: Performed By: #### 52449 ####[facility] [place] [address], USAPEEP8.0 TKW66LayxygPjjAultman Alliance Community HospitalComment on above:Performed By: #### 52722 ####[facility] [place] [address], USAPF DQVMH525 mmHgNoAultman Alliance Community HospitalComment on above:Performed By: #### 83797 ####[facility] [facility] [place] [address], [place] pH (Bld)7.41 [pH]Normal7.35-7.45The [facility] HospitalComment on above:Performed By: #### 36635 ####[address] [place] [address], USARespiratory rate12 /minNoAultman Alliance Community HospitalComment on above:Performed By: #### [id number] ####[facility] [facility] [place] [address], USATIDAL VOLUME (VT) QV813KcqdyoXfrAultman Alliance Community HospitalComment on above: Performed By: #### [id number] ####[address] [place] [address], USABASE EXCESS-3 mmol/LLow-2-3The [facility] HospitalComment on above:Performed By: #### 07914 ####[facility] [facility] [place] [address], USADELIVERY SYSTEMSMVNormal The [facility] HospitalComment on above:Performed By: #### [id number] ####[place] [address] [facility] [place] [address], [place] NFN943 %NormalThe [facility] HospitalComment on above:Performed By: #### 07501 ####[facility] [place] [address].[place] [address], USAHCO3 (Bld) [Moles/Vol]21 mmol/VIsrfqe29-63Uig [facility] HospitalComment on above:Performed By: #### 21227 ####[facility] [place] [address], USAIONIZED CALCIUM1.24 mmol/LNormal1.13-1.32The [facility] HospitalComment on above: Performed By: #### 07885 ####[facility] [place] [address], USAMIN VOLUME6.7NoAultman Alliance Community HospitalComment on above:Performed By: #### 44690 ####[facility] [place] [address], USAMODALITYACNoAultman Alliance Community HospitalComment on above:Performed By: #### 94772 ####[facility] [place] [address], USAOxygen (Bld) [Partial pressure]155 mm[Hg]Critically zalz43-703Qxb [facility] HospitalComment on above:Performed By: #### 69642 ####[facility] [place] [address], USAOxygen saturation in Blood98.3 %High94.0-97.0The [facility] HospitalComment on above: Performed By: #### 44746 ####[facility] [place] [address], OXQUGX275 gxCuZky22-96Qvs [facility] HospitalComment on above:Performed By: #### 34136 ####[facility] [place] [address], USAPEEP8.0 NTZ78LwgolzFovAultman Alliance Community HospitalComment on above:Performed By: #### 13809 ####[facility] [place] [address], [place] pH (Bld)7.42 [pH]Normal7.35-7.45The [facility] HospitalComment on above:Performed By: #### 51716 ####[facility] [place] [address], USARespiratory rate12 /minNormalThe [facility] HospitalComment on above:Performed By: #### 53495 ####[facility] [place] [address], USATIDAL VOLUME (VT) JZ427QycgzjSwfAultman Alliance Community HospitalComment on above: Performed By: #### 04971 ####[facility] [place] [address], USABASIC METABOLIC PANELon 04-00-2157Deecwok [Mass/Vol]7.9 mg/dLLow8.6-10.3The [facility] HospitalComment on above:Order Comment: No: Do not add to previous drawPerformed By: #### 43595 #### [facility] [address] [place] [address], USAChloride [Moles/Vol]110 mmol/WWevf80-140Tsa [facility] HospitalComment on above:Order Comment: No: Do not add to previous drawPerformed By: #### 12500 #### [facility] [address] [place] [address], USACO2 [Moles/Vol]20 mmol/LCla93-10Sfz [facility] HospitalComment on above:Order Comment: No: Do not add to previous draw Performed By: #### 95536 #### [facility] [address] [place] [address], USACreatinine [Mass/Vol]0.77 mg/dLNormal0.60-1.20The [facility] HospitalComment on above:Order Comment: No: Do not add to previous drawPerformed By: #### [id number] #### [facility] [address] [place] [address], USAGFR/1.73 sq M.predicted among blacks MDRD (S/P/Bld) [Vol rate/Area]mL/min/{1.73_m2}Normal>60The [facility] Comment on above:Order Comment: No: Do not add to previous drawPerformed By: #### [id number] #### [facility] [address] [place] [address], USAGFR/1.73 sq M.predicted among non-blacks MDRD (S/P/Bld) [Vol rate/Area]mL/min/{1.73_m2}Normal>60The [facility] Comment on above:Order Comment: No: Do not add to previous drawPerformed By: #### 62349 #### [facility] [address] [place] [address], USAGlucose [Mass/Vol]124 mg/nBRztx38-930Wme [facility] HospitalComment on above:Order Comment: No: Do not add to previous drawPerformed By: #### 76775 #### [facility] [address] [place] [address], USAPotassium [Moles/Vol]3.8 mmol/LNormal3.5-5.1The [facility] HospitalComment on above:Order Comment: No: Do not add to previous drawPerformed By: #### 92133 #### [facility] [address] [place] [address], USASodium [Moles/Vol]139 mmol/TJlctzx245-349Xgo [facility] HospitalComment on above:Order Comment: No: Do not add to previous drawPerformed By: #### 38032 #### [facility] [address] [place] [address], USAUrea nitrogen [Mass/Vol]26 mg/dLHigh7-25The [facility] HospitalComment on above:Order Comment: No: Do not add to previous drawPerformed By: #### [id number] #### [facility] [address] [place] [address], [facility], ROSWELLCBC COMPLETE BLOOD COUNTon 78-53-9806Cdfowprtxym distribution width (RBC) [Ratio]18.3 %High11.5-15.0The [facility] HospitalComment on above:Order Comment: No: Do not add to previous draw Nurse drawPerformed By: #### [id number] #### [facility] [address] [place] [address], USAHematocrit (Bld) [Volume fraction]24.4 %Low36.0-45.0The [facility] HospitalComment on above:Order Comment: No: Do not add to previous draw Nurse drawPerformed By: #### [id number] #### [facility] [address] [place] [address], USAHemoglobin (Bld) [Mass/Vol]8.2 g/dLLow12.0-15.0The [facility] HospitalComment on above:Order Comment: No: Do not add to previous draw Nurse drawPerformed By: #### 56962 #### [facility] [address] [place] [address], [facility] (RBC) [Entitic mass]30.5 vpQjzlmk56.0-33.0The [facility] HospitalComment on above:Order Comment: No: Do not add to previous draw Nurse drawPerformed By: #### 13726 #### [facility] [address] [place] [address], [facility], ROSWELLMCHC (RBC) [Mass/Vol]33.6 g/yWLyzjmz44.0-35.0The [facility] HospitalComment on above:Order Comment: No: Do not add to previous draw Nurse drawPerformed By: #### 08834 #### [facility] [address] [place] [address], [facility] ROSWELLMCV (RBC) [Entitic vol]90.7 hQQeopox97.0-98.0The [facility] HospitalComment on above:Order Comment: No: Do not add to previous draw Nurse drawPerformed By: #### 08048 #### [facility] [address] [place] [address], USANucleated RBC/100 WBC (Bld) [Ratio]0 %Normal0-0The [facility] HospitalComment on above:Order Comment: No: Do not add to previous draw Nurse drawPerformed By: #### 12734 #### [facility] [address] [place] [address], USAPLAT [id number] 10*3/zEGtfjsj549-346Uia [facility] HospitalComment on above:Order Comment: No: Do not add to previous draw Nurse drawPerformed By: #### 19841 #### [facility] [address] [facility] [place] [address], USARBC (Bld) [#/Vol]2.69 10*6/uLLow3.80-5.00The [facility] HospitalComment on above:Order Comment: No: Do not add to previous draw Nurse drawPerformed By: #### 09539 #### [facility] [address] [facility] [place] [address], USAWBC (Bld) [#/Vol]11.33 10*3/uLHigh4.00-10.60The [facility] HospitalComment on above:Order Comment: No: Do not add to previous draw Nurse drawPerformed By: #### [id number] #### [facility] [address] [facility] [place] [address], USACT BRAIN WO CONTRASTon [id number] BRAIN WO CONTRAST [facility] Department of Radiology [address] [place] [address] Patient Name: MEG GEORGES : 1965 Sex: F Age: Race: White Pt. Location: [place] [address] Patient Status: I Ordered Date: 08/21/2021 12:50:00 [...] report. Electronically signed: Martinez Hoover. Transcribed by: [email or web address], User Resident: ARIEL SOLORZANO Electronically Signed by: MARTINEZ HOOVER @ 08/21/2021 05:07 PM I personally read this/these film(s) with this [facility] HospitalComment on above:Order Comment: Check NG Tube PositionCT FACIAL BONES W CONTRASTon [id number] FACIAL BONES W CONTRASTUnWright[facility] Department of Radiology [address] [place] [id number] Patient Name: MEG GEORGES : 1965 Sex: F Age: Race: White Pt. Location: [place] [address] Patient Status: I Ordered Date: 08/21/2021 12:50:00 [...] with irregularity of the margin secondary to infection/inflammation given the posterior fluid collection in this [...] swelling this region. Focal areas of bone destruction/resorption of the inferior clivus noted. There is [...] above. Electronically signed: Martinez Hoover. Transcribed by: [email or web address], User Resident: Electronically Signed by: MARTINEZ HOOVER @ 08/21/2021 05:09 PMNormalThe Newark HospitalComment on above:Order Comment: R/O AtelectasisLACTATE BLOODon [id number] [Moles/Vol]0.6 mmol/LNormal.5-2.2 The [facility] HospitalComment on above:Order Comment: No: Do not add to previous drawPerformed By: #### [id number] ####[facility] [address], USALIVER BATTERYon 08-21-2021 Albumin [Mass/Vol]2.3 g/dLLow3.5-5.7[facility] Comment on above:Order Comment: No: Do not add to previous drawPerformed By: #### 71213 #### [facility] [address] [place] [address], USAALKALINE DAWRAW256 IU/RZzll26-704Uwp [facility] HospitalComment on above:Order Comment: No: Do not add to previous draw Performed By: #### [id number] #### [facility] [address] [place] [address], USAALT [Catalytic activity/Vol]9 U/LNormal7-52The [facility] HospitalComment on above:Order Comment: No: Do not add to previous drawPerformed By: #### 09620 #### [facility] [address] [place] [address], USAAST [Catalytic activity/Vol]12 U/RBsa50-60Rbh [facility] HospitalComment on above:Order Comment: No: Do not add to previous drawPerformed By: #### 63685 #### [facility] [address] [place] [address], USABilirubin [Mass/Vol]0.4 mg/dLNormal0.3-1.0The [facility] HospitalComment on above:Order Comment: No: Do not add to previous drawPerformed By: #### 63830 #### [facility] [address] [place] [address], USABilirubin.direct [Mass/Vol]0.1 mg/dLNormal0.0-0.2The [facility] HospitalComment on above:Order Comment: No: Do not add to previous drawPerformed By: #### 60291 #### [facility] [address] [place] [address], USAProtein [Mass/Vol]5.7 g/dLLow6.0-8.3The [facility] HospitalComment on above:Order Comment: No: Do not add to previous drawPerformed By: #### 50942 #### [facility] [address] [place] [address], USAMAGNESIUM BLOODon 06-47-3149Lmjjxhzrs [Mass/Vol]2.1 mg/dL Normal1.9-2.7The [facility] HospitalComment on above:Order Comment: No: Do not add to previous drawPerformed By: #### 47975 #### [facility] [address] [place] [address], USAOperative Reporton [id number] ReportMR#: [id number] I [facility] Pt. Name: Meg Georges Room #: BECKY [id number] Discharge Date: Birthdate: 1965 OPERATIVE REPORT DATE OF SURGERY: 08/21/2021 SURGEON: Jerry Pozo MD Operative report: Percutaneous endoscopic gastrostomy tube placement [facility] Date: 08/21/2021 Preoperative diagnosis: Oropharyngeal dysphagia, nasopharyngeal erosion Postoperative diagnosis: Same Operation performed: Percutaneous endoscopic gastrostomy tube placement Surgeon: Jerry Pozo MD Equipment Maintenance Engineer: Garfield Bowen MD ( resident PGY 5) Estimated blood loss: 2 mL Wound classification: Clean contaminated Tubes and drains: 20 Welsh gastrostomy tube pull type Local anesthetic: 1% lidocaine plain, 4 mL used for subcutaneous infiltration Anesthesia: General anesthesia Indication: This is a 56-year-old woman who had a prolonged hospitalization at [facility] in [place] over the last several months for COVID-related pneumonia and subsequent bacterial pneumonia complications. Patient had chronic hypoxemic respiratory failure requiring placement of tracheostomy approximately 2 weeks ago prior to transfer to LT[facility]. Patient presented to [facility] 1 day ago for acute [...] Pozo MD Date Trans: 08/21/2021 11:17 A/ LAUREN_JN:[id number] cc: Johny Beckman M.D. [address] [facility] Emergency Medicine [facility] [address] Neri Santa D.O. [address] [place] [address] Fernando [facility] [address]ScolukJwfMercy Health Tiffin HospitalPHOSPHORUS BLOODon [id number] [Mass/Vol]2.3 mg/dLLow2.5-5.0The [facility] HospitalComment on above:Order Comment: No: Do not add to previous draw Performed By: #### [id number] #### [facility] [address] [facility] [place] [address], USAPOC GLUCOSE LABon 20-39-9580Pzhwhmu [Mass/Vol]138 mg/dLHigh 70-100The [facility] HospitalComment on above:Performed By: #### 11682 #### [facility] [address] [place] [address], USAGlucose [Mass/Vol]164 mg/qAFrhk56-092Gaf [facility] HospitalComment on above:Performed By: #### 00166 ####[facility] [facility] [place] [address], USAGlucose [Mass/Vol] 143 mg/dTAhzn70-138Xkt [facility] HospitalComment on above:Order Comment: Bleeding s/p recent tracheostomyPerformed By: #### 10092 ####[facility] [facility] [place] [address], [place] Glucose [Mass/Vol]124 mg/eDXrfi65-365Mjn [facility] Comment on above:Performed By: #### 46006 ####[facility] [facility] [place] [address], USAPORTABLE CHEST 1 VIEWon 08-21-2021 PORTABLE CHEST 1 V[facility]UnW[facility] Department of Radiology [address] [place] [id number] Patient Name: MEG GEORGES : 1965 Sex: F Age: Race: White Pt. Location: [place] [address] Patient Status: I Ordered Date: 08/21/2021 5:00:00 [...] unchanged. Electronically signed: Yaritza Young. Transcribed by: [email or web address], User Resident: Electronically Signed by: YARITZA YOUNG @ 08/21/2021 07:38 AMNCleveland Clinic Akron General Lodi HospitalComment on above:Order Comment: R/O Atelectasis*BLOOD CULTUREon 08-20-2021*BLOOD CULTUREClinical Report: (D) Specimen: BLOOD CULTURE Collected: 08/20/2021 00:47 Status: Final Last Updated: 08/25/2021 06:53 (1) RIGHT AC @ 0045. CULT RES (Final) No Growth Day [address] [place], [place] [address]Comment on above: Order Comment: RIGHT AC @ 0045.Performed By: #### [id number] #### [facility] [address]*BLOOD CULTUREClinical Report: (D) Specimen: BLOOD CULTURE Collected: 08/20/2021 00:47 Status: Final Last Updated: 08/25/2021 06:53 (1) LEFT AC @ 0040. CULT RES (Final) No Growth Day [address] [place], [place] [address]Comment on above: Order Comment: Bleeding s/p recent tracheostomyPerformed By: #### [id number] ####[facility] [place] [address], [facility] APTTon 27-74-4294oRCN Coag (Bld) [Time]58.3 sHigh25.0-35.0The [facility] HospitalComment on above:Result Comment: ALL RESULTS MUST BE INTERPRETED WITH RESPECT TO BLOOD DRAWING ARTIFACT OR DILUTION ERROR OF ANTICOAGULANT AT THE TIME OF SAMPLING. THE APTT SHOULD NOT BE USED TO MONITOR UNFRACTIONATED HEPARIN THERAPY, THIS LABORATORY NO LONGER HAS AN ESTABLISHED THERAPEUTIC RANGE BASED ON THE APTT. IT IS RECOMMENDED THAT THE UFH - HEPARIN ASSAY (ANTI-XA ACTIVITY) BE USED FOR THIS PURPOSE.Performed By: #### 11262 #### [facility] [address] [place] [address], [facility], ROSWELLARTERIAL BLOOD GAS WITH ICAon 30-26-0231BIKR EXCESS-2 mmol/NGhqcmy-8-5Gog [facility] HospitalComment on above:Order Comment: RESULTS CHECKED AND CALLED. ACCURATELY READ BACK BY DR CALIPerformed By: #### [id number] ####[facility] [place] [address], [facility], ROSWELLDELIVERY SYSTEMSAvita Health System Bucyrus HospitalComment on above:Order Comment: RESULTS CHECKED AND CALLED. ACCURATELY READ BACK BY DR Bazzi By: #### 68312 ####[facility] [facility] [place] [address], QTGOLU562 %NormalThe Newark HospitalComment on above:Order Comment: RESULTS CHECKED AND CALLED. ACCURATELY READ BACK BY DR Bazzi By: #### 50159 ####[facility] [facility] [place] [place] [address], [facility] HCO3 (Bld) [Moles/Vol]20 mmol/LQee46-99Ygi [facility] Comment on above:Order Comment: RESULTS CHECKED AND CALLED. ACCURATELY READ BACK BY DR Bazzi By: #### 05741 ####[address] [place] [address], [facility], ROSWELLIONIZED CALCIUM1.09 mmol/LLow 1.13-1.32The [facility] HospitalComment on above:Order Comment: RESULTS CHECKED AND CALLED. ACCURATELY READ BACK BY DR Bazzi By: #### 25173 ####[address] [place] [address], USAMIN VOLUME8.9[facility] Health Tiffin HospitalComment on above:Order Comment: RESULTS CHECKED AND CALLED. ACCURATELY READ BACK BY DR Bazzi By: #### 21608 ####[place] [address] [facility] [place] [place] [address], USAMODALITYACNoAultman Alliance Community HospitalComment on above:Order Comment: RESULTS CHECKED AND CALLED. ACCURATELY READ BACK BY DR Bazzi By: #### 62207 ####[address] [place] [address], [facility] ROSWELLOxygen (Bld) [Partial pressure]239 mm[Hg]Critically zzua39-325Ixh [facility] HospitalComment on above:Order Comment: RESULTS CHECKED AND CALLED. ACCURATELY READ BACK BY DR MAQSOODPerformed By: #### 67830 ####[facility] [place] [address], USAOxygen saturation in Blood97.6 %High94.0-97.0The [facility] HospitalComment on above:Order Comment: RESULTS CHECKED AND CALLED. ACCURATELY READ BACK BY DR Duffyformed By: #### 69444 ####[facility] [place] [address], BWIUDN860 mmHgCritically bsz61-16Vob [facility] HospitalComment on above:Order Comment: RESULTS CHECKED AND CALLED. ACCURATELY READ BACK BY DR Duffyformed By: #### 39658 ####[facility] [place] [address], [place] PEEP8.0 BWE29VyvkadDjzAultman Alliance Community HospitalComment on above:Order Comment: RESULTS CHECKED AND CALLED. ACCURATELY READ BACK BY DR CALI Performed By: #### 94447 ####[facility] [place] [address], USApH (Bld)7.52 [pH]High7.35-7.45The [facility] HospitalComment on above:Order Comment: RESULTS CHECKED AND CALLED. ACCURATELY READ BACK BY DR Duffyformed By: #### 49922 ####[facility] [place] [address], USARespiratory rate14 /minNoAultman Alliance Community HospitalComment on above:Order Comment: RESULTS CHECKED AND CALLED. ACCURATELY READ BACK BY DR Duffyformed By: #### 78562 ####[facility] [place], [place] [address] [address], USATIDAL VOLUME (VT) MM270FaayjyWtaAultman Alliance Community Hospital Comment on above:Order Comment: RESULTS CHECKED AND CALLED. ACCURATELY READ BACK BY DR Duffyformed By: #### 22425 ####[facility] [place] [address], USABASIC METABOLIC PANELon 08-20-2021 Calcium [Mass/Vol]6.2 mg/dLCritically low8.6-10.3The [facility] HospitalComment on above:Order Comment: Check NG Tube PositionPerformed By: #### 96554, 64634, 05525, 49767 ####[facility] [facility] [place] [address], USAChloride [Moles/Vol]112 mmol/EJybr17-695Yta [facility] HospitalComment on above:Order Comment: Check NG Tube PositionPerformed By: #### 67252, 13277, 81725, 15213 ####[facility] [facility] [place] [address], USACO2 [Moles/Vol]17 mmol/LLow 21-31The [facility] HospitalComment on above:Order Comment: Check NG Tube PositionPerformed By: #### 35462, 76505, 10715, 86095 ####[facility] [facility] [address], [place] Creatinine [Mass/Vol]0.80 mg/dLNormal0.60-1.20The [facility] HospitalComment on above:Order Comment: Check NG Tube PositionPerformed By: #### 84550, 21494, 67927, 56467 ####[facility] [place] [address], USAGFR/1.73 sq M.predicted among blacks MDRD (S/P/Bld) [Vol rate/Area]mL/min/{1.73_m2}Normal>60The [facility] Comment on above:Order Comment: Check NG Tube PositionPerformed By: #### 53385, 26608, 53873, 80534 ####[facility] [place] [address], USAGFR/1.73 sq M.predicted among non-blacks MDRD (S/P/Bld) [Vol rate/Area]mL/min/{1.73_m2}Normal>60The [facility] Comment on above:Order Comment: Check NG Tube PositionPerformed By: #### 69778, 06732, 03973, 72418 ####[facility] [place] [address], [facility] ROS[facility]LLGlucose [Mass/Vol]123 mg/iBTfrk46-449Los [facility] HospitalComment on above:Order Comment: Check NG Tube Position Performed By: #### 02725, 62814, 65769, 98777 ####[facility] [facility] [place] [address], [facility] ROS[facility]LLPotassium [Moles/Vol]3.1 mmol/LLow 3.5-5.1The [facility] HospitalComment on above:Order Comment: Check NG Tube PositionPerformed By: #### 81708, 35557, 32877, 49770 ####[facility] [place] [address], [facility] Sodium [Moles/Vol]137 mmol/VEbbhuz866-265Amo [facility] Comment on above:Order Comment: Check NG Tube PositionPerformed By: #### 43262, 55033, 37098, 49860 ####[facility] [place] [address], [facility] ROS[facility]LLUrea nitrogen [Mass/Vol]31 mg/dLHigh7-25The [facility] HospitalComment on above:Order Comment: Check NG Tube Position Performed By: #### 35677, 95594, 67180, 34017 ####[facility] [place] [address], [facility] ROS[place]LLCBC W/DIFFon 53-61-7310RVD IMM GRANS0.1 10*3/uLNormal0.0-0.2The [facility] HospitalComment on above:Order Comment: Bleeding s/p recent tracheostomyPerformed By: #### 59481 ####[facility] [place] [address], [place] ABS NEUTROPHILS9.2 10*3/uLHigh1.6-7.6The [facility] Comment on above:Order Comment: Bleeding s/p recent tracheostomyPerformed By: #### 95982 ####[facility] [facility] [place] [address], [facility] ROSWELLBasophils (Bld) [#/Vol]0.0 10*3/uLNormal0.0-0.2The [facility] HospitalComment on above:Order Comment: Bleeding s/p recent tracheostomyPerformed By: #### 43564 ####[facility] [facility] [place] [place] [address], [facility] ROS[place]LLBasophils/100 WBC (Bld)0.3 %Normal0.0-1.0The [facility] HospitalComment on above:Order Comment: Bleeding s/p recent tracheostomyPerformed By: #### 35612 ####[facility] [facility] [place] [address], [facility] ROSWELLEosinophils (Bld) [#/Vol]0.1 10*3/uLNormal0.0-0.5The [facility] HospitalComment on above: Order Comment: Bleeding s/p recent tracheostomyPerformed By: #### 82268 ####[facility] [facility] [place] [address], [facility] [place] Eosinophils/100 WBC (Bld)0.4 %Normal0.0-6.0The [facility] HospitalComment on above:Order Comment: Bleeding s/p recent tracheostomyPerformed By: #### 89462 ####[facility] [facility] [place] [address], USAErythrocyte distribution width (RBC) [Ratio]17.2 %High11.5-15.0The [facility] HospitalComment on above:Order Comment: Bleeding s/p recent tracheostomyPerformed By: #### 25618 ####[facility] [facility] [place] [address], [facility] ROSWELLHematocrit (Bld) [Volume fraction] 23.9 %Low36.0-45.0The [facility] HospitalComment on above:Order Comment: Bleeding s/p recent tracheostomyPerformed By: #### 76302 ####[facility] [place] [address], [facility] ROSWELLHemoglobin (Bld) [Mass/Vol]8.1 g/dLLow12.0-15.0The [facility] HospitalComment on above:Order Comment: Bleeding s/p recent tracheostomyPerformed By: #### 28873 ####[facility] [facility] [place] [address], [facility] IMMATURE GRANS0.6 %Normal0.0-1.0The [facility] HospitalComment on above:Order Comment: Bleeding s/p recent tracheostomyPerformed By: #### 31623 ####[facility] [facility] [place] [address], [facility] Lymphocytes (Bld) [#/Vol]3.3 10*3/uLNormal1.2-4.0The [facility] HospitalComment on above:Order Comment: Bleeding s/p recent tracheostomy Performed By: #### 50458 ####[facility] [facility] [place] [address], [facility] ROS[facility]LLLymphocytes/100 WBC (Bld)24.4 %Orisqa02.0-45.0The [facility] HospitalComment on above:Order Comment: Bleeding s/p recent tracheostomyPerformed By: #### 16932 ####[facility] [facility] [place] [address], [facility] ROSWELLMCH (RBC) [Entitic mass]30.6 pg Bjeuem20.0-33.0The [facility] HospitalComment on above:Order Comment: Bleeding s/p recent tracheostomyPerformed By: #### 36060 ####[facility] [place] [address], [facility], ROSWELLMCHC (RBC) [Mass/Vol]33.9 g/qEQjmzpt82.0-35.0The [facility] HospitalComment on above:Order Comment: Bleeding s/p recent tracheostomyPerformed By: #### 70210 ####[facility] [facility] [place] [address], [facility] ROSWELLMCV (RBC) [Entitic vol]90.2 rULulooj15.0-98.0The [facility] HospitalComment on above:Order Comment: Bleeding s/p recent tracheostomy Performed By: #### 21365 ####[facility] [facility] [place] [address], [facility] ROS[facility]LLMonocytes (Bld) [#/Vol]1.0 10*3/uLNormal0.1-1.0The [facility] HospitalComment on above:Order Comment: Bleeding s/p recent tracheostomyPerformed By: #### 94763 ####[facility] [facility] [place] [address], USAMONOS7.2 %Normal5.0-12.0The [facility] HospitalComment on above:Order Comment: Bleeding s/p recent tracheostomyPerformed By: #### 20618 ####[facility] [facility] [place] [address], USANeutrophils/100 WBC (Bld)67.1 % Lqtiml57.0-72.0The [facility] HospitalComment on above:Order Comment: Bleeding s/p recent tracheostomyPerformed By: #### 23467 ####[facility] [facility] [place] [address], USANucleated RBC/100 WBC (Bld) [Ratio]0 %Normal0-0The [facility] Comment on above:Order Comment: Bleeding s/p recent tracheostomyPerformed By: #### 85913 ####[facility] [place] [address], USAPLAT ZHJ695 10*3/eVXyvcgd906-543Zac [facility] HospitalComment on above:Order Comment: Bleeding s/p recent tracheostomyPerformed By: #### 51484 ####[facility] [place] [address], USARBC (Bld) [#/Vol]2.65 10*6/uLLow3.80-5.00The [facility] HospitalComment on above:Order Comment: Bleeding s/p recent tracheostomy Performed By: #### 95504 ####[facility] [place] [address], USAWBC (Bld) [#/Vol]13.67 10*3/uLHigh4.00-10.60The [facility] HospitalComment on above:Order Comment: Bleeding s/p recent tracheostomyPerformed By: #### 22088 ####[facility] [place] [address], USAABS IMM GRANS0.2 10*3/uLNormal 0.0-0.2The [facility] HospitalComment on above:Performed By: #### 33363 ####[facility] [place] [address], USAABS YAMRFBOCHQV93.9 10*3/uLHigh1.6-7.6The [facility] HospitalComment on above:Performed By: #### 98800 ####[facility] [place] [address], USABasophils (Bld) [#/Vol]0.1 10*3/uLNormal0.0-0.2The [facility] HospitalComment on above: Performed By: #### 04378 ####[facility] [place] [address], USABasophils/100 WBC (Bld)0.4 %Normal0.0-1.0The [facility] HospitalComment on above:Performed By: #### 21852 ####[address] [place] [address], [facility] Eosinophils (Bld) [#/Vol]0.4 10*3/uLNormal0.0-0.5The [facility] HospitalComment on above:Performed By: #### 41518 ####[address] [place] [address], [facility] ROSWELLEosinophils/100 WBC (Bld) 1.7 %Normal0.0-6.0The [facility] HospitalComment on above: Performed By: #### 39023 ####[address] [place] [address], [facility] ROSWELLErythrocyte distribution width (RBC) [Ratio]17.4 %High 11.5-15.0The [facility] HospitalComment on above:Performed By: #### 02185 ####[address] [place] [address], [facility] ROSWELLHematocrit (Bld) [Volume fraction]25.5 %Low36.0-45.0The [facility] HospitalComment on above:Performed By: #### 11969 ####[address] [place] [address], [facility] ROSWELLHemoglobin (Bld) [Mass/Vol]8.1 g/dLLow12.0-15.0The [facility] HospitalComment on above:Performed By: #### 49928 ####[address] [place] [address], [facility] ROSWELLIMMATURE GRANS0.8 %Normal0.0-1.0The [facility] HospitalComment on above:Performed By: #### 01259 ####[address] [place] [address], [facility] [place] Lymphocytes (Bld) [#/Vol]2.8 10*3/uLNormal1.2-4.0The [facility] HospitalComment on above:Performed By: #### 80768 ####[address] [place] [address], [facility] ROSWELLLymphocytes/100 WBC (Bld) 11.7 %Low20.0-45.0The [facility] HospitalComment on above: Performed By: #### 62680 ####[address] [place] [address], [facility] ROSWELLMCH (RBC) [Entitic mass]31.5 naFpseks62.0-33.0The [facility] HospitalComment on above:Performed By: #### 69823 ####[address] [place] [address], [facility] [place] MCHC (RBC) [Mass/Vol]31.8 g/dLLow32.0-35.0The [facility] HospitalComment on above:Performed By: #### 62830 ####[address] [place] [address], [facility] ROSWELLMCV (RBC) [Entitic vol]99.2 fL High82.0-98.0The [facility] HospitalComment on above:Performed By: #### 36528 ####[address] [place] [address], [facility] ROSWELLMonocytes (Bld) [#/Vol]1.5 10*3/uLHigh0.1-1.0The [facility] HospitalComment on above:Performed By: #### 46094 ####[address] [place] [address], [facility], ROSWELLMONOS6.2 %Normal 5.0-12.0The [facility] HospitalComment on above:Performed By: #### 62442 ####[address] [place] [address], [facility] ROSWELLNeutrophils/100 WBC (Bld)79.2 %High40.0-72.0The [facility] HospitalComment on above:Performed By: #### 01299 ####[address] [place] [address], [facility] ROSWELLNucleated RBC/100 WBC (Bld) [Ratio]0 %Normal0-0The [facility] HospitalComment on above:Performed By: #### 68954 ####[address] [place] [address], [place] [id number] 10*3/oNHprf460-413Euz [facility] HospitalComment on above:Performed By: #### [id number] ####[address] [place] [address], [facility], ROSWELLRBC (Bld) [#/Vol]2.57 10*6/uLLow3.80-5.00The [facility] HospitalComment on above:Performed By: #### [id number] ####[address] [place] [address], [facility], ROSWELLWBC (Bld) [#/Vol]23.85 10*3/uLHigh4.00-10.60 The [facility] HospitalComment on above:Performed By: #### [id number] ####[address] [place] [address], [facility] [place] COMP METABOLIC PANELon 25-40-7036Achzlax [Mass/Vol]2.5 g/dLLow3.5-5.7The [place] HospitalComment on above:Performed By: #### [id number], [id number] ####[address] [place] [address], [facility], ROSWELLALKALINE [id number] IU/QYtsx42-410Ghn [facility] HospitalComment on above:Performed By: #### [id number], [id number] ####[facility] [place] [address], [place] [Catalytic activity/Vol]14 U/LNormal7-52The [place] HospitalComment on above:Performed By: #### [id number], [id number] ####[facility] [place] [address], [place] [Catalytic activity/Vol]21 U/L Fjgqjf67-98Nry [facility] HospitalComment on above:Performed By: #### 67882, 44823 ####[facility] [place] [address], USABilirubin [Mass/Vol]0.6 mg/dLNormal0.3-1.0The [facility] HospitalComment on above:Performed By: #### 41593, 40668 ####[facility] [place] [address], USACalcium [Mass/Vol]8.0 mg/dLLow8.6-10.3The [facility] HospitalComment on above:Performed By: #### 58336, 92913 ####[facility] [place] [address], USAChloride [Moles/Vol]101 mmol/ROeyspg44-671Ill [facility] HospitalComment on above: Performed By: #### 09550, 90467 ####[facility] [place] [address], USACO2 [Moles/Vol]21 mmol/HQqpexa68-91Yap [facility] HospitalComment on above:Performed By: #### 07899, 31327 ####[facility] [place] [address], USACreatinine [Mass/Vol]0.99 mg/dLNormal0.60-1.20The [facility] HospitalComment on above:Performed By: #### 50839, 58915 ####[facility] [place] [address], USAeGFR- non- Zrsxengx40 ml/min/1.73sq mAbnormal>60The [facility] HospitalComment on above:Performed By: #### 17309, 24328 ####[facility] [place] [address], USAGFR/1.73 sq M.predicted among blacks MDRD (S/P/Bld) [Vol rate/Area]mL/min/{1.73_m2}Normal>60The [facility] HospitalComment on above:Performed By: #### Michael, 91670 ####[facility] [place] [address], USAGlucose [Mass/Vol]280 mg/oTOydi10-300Qcz [facility] HospitalComment on above:Performed By: #### 14801, 47489 ####[facility] [place] [address], USAPotassium [Moles/Vol]4.1 mmol/LNormal3.5-5.1The [facility] HospitalComment on above: Performed By: #### 53017, 44920 ####[facility] [place] [address], USAProtein [Mass/Vol]6.5 g/dLNormal6.0-8.3The [facility] HospitalComment on above:Performed By: #### 62125, 93652 ####[facility] [place] [address], USASodium [Moles/Vol]134 mmol/ZWwh897-271Dvd [facility] HospitalComment on above:Performed By: #### 35292, 42161 ####[facility] [place] [address], USAUrea nitrogen [Mass/Vol] 32 mg/dLHigh7-25The [facility] HospitalComment on above: Performed By: #### 50717, 50411 ####[facility] [place] [address], USACTA CHESTon 81-57-3235WOA [facility] Department of Radiology [address] [place] [address] Patient Name: MEG GEORGES : 1965 Sex: F Age: Race: White Pt. Location: [facility] Patient Status: I Ordered Date: 08/19/2021 [...] report. Electronically signed: Charles Castillo. Transcribed by: [email or web address], User Resident: OLGA LIDIA WILLIS Electronically Signed by: CHARLES CASTILLO @ 08/20/2021 12:54 AM I personally read this/these film(s) with this residentMercy Health Tiffin HospitalComment on above:Order Comment: R/O AtelectasisCTA [facility] [id number] [facility] Department of Radiology [address] [place] [address] Patient Name: MEG GEORGES : 1965 Sex: F Age: Race: White Pt. Location: [facility] Patient Status: I Ordered Date: 08/19/2021 [...] report. Electronically signed: Charles Castillo. Transcribed by: [email or web address], User Resident: OLGA LIDIA WILLIS Electronically Signed by: CHARLES CASTILLO @ 08/20/2021 12:51 AM I personally read this/these film(s) with this residentMercy Health Tiffin HospitalComment on above:Order Comment: Bleeding s/p recent tracheostomyEndoscopy Reporton [id number] ReportMR#: [id number] [facility] Pt. Name: Meg Georges Surgery Date: 08/20/2021 Room #: [facility] [id number] Date of : 1965 PROCEDURE NOTE ATTENDING: [...] Pozo M.D. Date Trans: 08/20/2021 05:17 P/ DN_JN:[id number] cc: Johny Beckman M.D. [address] [facility] [place] [address] Neri Santa D.O. [address] [place] [address]domenica yael [facility] [address]DyqqzhOpjAultman Alliance Community HospitalFIBRIN DEGRADATION PRODUCTon 75-32-7335PQD7 ug/mlAbnormal<5 ug/mlThe [facility] HospitalComment on above:Order Comment: No: Do not add to previous drawPerformed By: #### 88524 #### [facility] [address] [place] [address], USAFIBRINOGENon 59-92-2082TLOYYLWGOB840 mg/lRUhuy782-646Rtu [facility] HospitalComment on above:Performed By: #### 84796 #### [facility] [address] [place] [address], USAFRESH FROZEN PLASMA 6 UNITSon 40-43-9455HWATBWH CODE [id number] NormalThe [facility] HospitalComment on above:Performed By: #### 71678 ####[facility] [place] [address], USAPRODUCT CODE [id number] Health Tiffin Hospital Comment on above:Performed By: #### 35184 ####[facility] [place] [address], USAPRODUCT CODE [id number] Alliance Community HospitalComment on above:Performed By: #### 32487 ####[facility] [place] [address], [place] PRODUCT CODE [id number] Alliance Community HospitalComment on above:Performed By: #### 59931 ####[facility] [place] [address], USAPRODUCT CODE [id number] Alliance Community HospitalComment on above:Performed By: #### 84365 ####[facility] [place] [address], USAPRODUCT CODE 6 [id number] Health Tiffin HospitalComment on above:Performed By: #### 13660 ####[facility] [place] [address], USAPRODUCT STATUS 1POhio Valley Hospital Comment on above:Result Comment: Result changed by IF on 08/20/2021 13:26. The previous value was XM. Result changed by IF on 08/21/2021 00:30. The previous value was IS.Performed By: #### 32387 ####[facility] [place] [address], USAPRODUCT STATUS 2RMercy Health Perrysburg Hospital Comment on above:Result Comment: Result changed by IF on 08/20/2021 05:09. The previous value was XM. Result changed by IF on 08/20/2021 05:16. The previous value was XX.Performed By: #### 53756 ####[facility] [place] [address], USAPRODUCT STATUS 3RMercy Health Perrysburg Hospital Comment on above:Result Comment: Result changed by IF on 08/20/2021 05:24. The previous value was XM. Result changed by IF on 08/20/2021 05:48. The previous value was XX.Performed By: #### 54921 ####[facility] [place] [address], USAPRODUCT STATUS 4RMercy Health Perrysburg Hospital Comment on above:Result Comment: Result changed by IF on 08/22/2021 16:50. The previous value was XM. Result changed by IF on 08/25/2021 01:00. The previous value was XX.Performed By: #### 42577 ####[facility] [place] [address], USAPRODUCT STATUS 5RENCleveland Clinic Akron [facility] Comment on above:Result Comment: Result changed by IF on 08/20/2021 05:24. The previous value was XM. Result changed by IF on 08/20/2021 05:48. The previous value was XX.Performed By: #### 80453 ####[facility] [place] [address], USAPRODUCT STATUS 6RMercy Health Perrysburg Hospital Comment on above:Result Comment: Result changed by IF on 08/20/2021 05:24. The previous value was XM. Result changed by IF on 08/20/2021 05:48. The previous value was XX.Performed By: #### 51210 ####[facility] [place] [address], USAUNIT ABO 1AMercy Health Tiffin HospitalComment on above:Performed By: #### 38569 ####[facility] [place] [address], USAPerformed By: #### 04448 ####[facility] [place] [address], USAUNIT ABO 2ANormal [facility] Medical CenterComment on above:Performed By: #### 73082 ####[facility] [place] [address], [place] UNIT ABO 3AMercy Health Tiffin HospitalComment on above: Performed By: #### 24096 ####[facility] [facility] [place] [address], USAUNIT ABO 4AMercy Health Tiffin HospitalComment on above:Performed By: #### 28570 ####[facility] [place] [address], USAUNIT ABO 5ANoAultman Alliance Community HospitalComment on above:Performed By: #### 45108 ####[facility] [place] [address], USAUNIT ABO 6A NormalAdena Regional Medical CenterComment on above:Performed By: #### 85717 ####[facility] [facility] [place] [place] [address], USAUNIT ID [id number]-YNagwblZunAdena Regional Medical Center Comment on above:Performed By: #### 90970 ####[facility] [facility] [place] [place] [address], USAUNIT ID [id number]-QGopkelYduMarymount HospitalComment on above:Performed By: #### 90719 ####[facility] [place] [address].[place] [address], [place] UNIT ID [id number]-*NormalAdena Regional Medical CenterComment on above:Performed By: #### 74167 ####[facility] [place] [address], USAUNIT ID [id number]-STyebghAgjAdena Regional Medical CenterComment on above:Performed By: #### 73455 ####[facility] [place] [address], USAUNIT ID 5 [id number] Regional Medical CenterComment on above: Performed By: #### 22450 ####[address] [place] [address], USAUNIT ID [id number] [facility] HospitalComment on above:Performed By: #### 17242 ####[facility] [facility] [place] [address], USAUNIT RH 1PositiveNormal [facility] Medical CenterComment on above:Performed By: #### 75613 ####[facility] [place] [address].[place] [address], [facility] Performed By: #### 91872 ####[facility] [place] [address].[place] [address], USAUNIT RH 2PositiveNormACMC Healthcare System GlenbeighComment on above:Performed By: #### 30748 ####[facility] [place] [address].[place] [address], USAUNIT RH 3PositiveNormACMC Healthcare System GlenbeighComment on above:Performed By: #### 84121 ####[facility] [place] [address].[place] [address], [facility] [place] UNIT RH 4PositiveNormACMC Healthcare System GlenbeighComment on above: Performed By: #### 35906 ####[facility] [facility] [place] [address], USAUNIT RH 5PositiveNormACMC Healthcare System GlenbeighComment on above:Performed By: #### 31056 ####[facility] [place] [address].[place] [address], USAUNIT RH 6PositiveNormACMC Healthcare System GlenbeighComment on above:Performed By: #### 60990 ####[address] [place] [address], [facility] [place] LACTATE BLOODon 97-46-2172Wobrmmy [Moles/Vol]1.3 mmol/LNormal.5-2.2The [facility] HospitalComment on above:Performed By: #### 57248 #### [facility] [address] [place] [address], USALIVER BATTERYon 49-88-3766Yennalm [Mass/Vol]1.8 g/dLLow 3.5-5.7The [facility] HospitalComment on above:Order Comment: Check NG Tube PositionPerformed By: #### 92910, 28249, 80289, 56482 ####[facility] [place] [address], [place] ALKALINE MGSRGF396 IU/AZoek64-313Ooz [facility] HospitalComment on above:Order Comment: Check NG Tube PositionPerformed By: #### 18841, 64936, 88705, 97435 ####[facility] [place] [address], USAALT [Catalytic activity/Vol]10 U/LNormal7-52The [facility] HospitalComment on above:Order Comment: Check NG Tube PositionPerformed By: #### 79519, 28090, 60971, 36482 ####[facility] [place] [address], USAAST [Catalytic activity/Vol]12 U/SGyw43-80Mgv [facility] HospitalComment on above:Order Comment: Check NG Tube PositionPerformed By: #### 63591, 73316, 90758, 53569 ####[facility] [facility] [place] [address], USABilirubin [Mass/Vol]0.4 mg/dLNormal0.3-1.0The [facility] HospitalComment on above:Order Comment: Check NG Tube PositionPerformed By: #### 69541, 02543, 63624, 51542 ####[facility] [place] [address], [place] Bilirubin.direct [Mass/Vol]0.1 mg/dLNormal0.0-0.2The [facility] HospitalComment on above:Order Comment: Check NG Tube PositionPerformed By: #### 16319, 60025, 95047, 04660 ####[facility] [place] [address], [facility], [place]LLProtein [Mass/Vol]4.6 g/dLLow6.0-8.3The [facility] HospitalComment on above:Order Comment: Check NG Tube PositionPerformed By: #### 04196, 07895, 25238, 35564 ####[facility] [place] [address], [facility], ROSWELLMAGNESIUM BLOODon 65-88-9756Bdlnllffj [Mass/Vol]1.4 mg/dLLow1.9-2.7The [facility] HospitalComment on above:Order Comment: Check NG Tube PositionPerformed By: #### 50373, 26336, 20736, 03985 ####[facility] [place] [address], [facility], ROSWELLOSMOLALITY BLOODon 88-65-0309Pirvztdngb [Osmolality]309 mosm/dbZhrx381-878Pjd [facility] HospitalComment on above:Order Comment: No: Do not add to previous drawPerformed By: #### 01581 #### [facility] [address] [facility]. [place] [id number], [facility], ROSWELLPHOSPHORUS BLOODon 60-56-0922Rgvaazohn [Mass/Vol]2.4 mg/dL Low2.5-5.0The [facility] HospitalComment on above:Order Comment: Check NG Tube PositionPerformed By: #### 10716, 78760, 64430, 74198 ####[facility] [place] [address], [facility] PLATELET APHERESIS 1 UNITon 34-32-5421DMNMCFH CODE [id number] [facility] HospitalComment on above:Performed By: #### 91078 ####[facility] [place] [address], [facility] ROSWELLUNIT ID 1 [id number] Regional Medical CenterComment on above: Performed By: #### 06937 ####[address] [place] [address], [facility], ROSWELLPRODUCT STATUS [address] [place], [place] [address]Comment on above:Result Comment: Result changed by IF on 08/21/2021 01:00. The previous value was XM.Performed By: #### 01049 ####[facility] [facility] [place] [address], [facility] Result Comment: Result changed by IF on 08/21/2021 08:54. The previous value was XM. Result changed by IF on 08/21/2021 18:31. The previous value was XX.Performed By: #### 30488 ####[facility] [place] [address].[place] [address], [facility], ROSWELLPOC GLUCOSE LABon 32-20-5237Wogrjzr [Mass/Vol]118 mg/aOAohp53-024 The [facility] HospitalComment on above:Performed By: #### 69273 ####[address] [place] [address], [facility] [place] Glucose [Mass/Vol]142 mg/cWVqgq02-763Dup [facility] Comment on above:Performed By: #### 75347 ####[facility] [place] [address], [facility] ROSWELLGlucose [Mass/Vol]160 mg/dLHigh 70-100The [facility] HospitalComment on above:Performed By: #### 86945 ####[facility] [place] [address], [facility] ROSWELLGlucose [Mass/Vol]177 mg/sRNnld68-003Eaq [facility] HospitalComment on above:Performed By: #### 35637 ####[facility] [place] [address], [facility] SARS COV2 ANTIGEN NEGATIVEon 30-70-3898JZJ SARS COV2 ANTIGEN NEGNegativeNormalNEGATIVEThe [facility] HospitalComment on above:Result Comment: Negative results should be treated as presumptive and [...] antigen from SARS-CoV-2 in direct nasopharyngeal swab (SEAT COVERS TRIMMER) specimens from individuals who are suspected of [...] Waiver, Certificate of Compliance, or Certificate of Accreditation.Performed By: #### 67926 #### [address] [place] [address], USAPORTABLE CHEST 1 VIEWon 11-53-0056ZURARFCM CHEST 1 VIEW [facility] Department of Radiology [address] [place] [id number] Patient Name: MEG GEORGES : 1965 Sex: F Age: Race: White Pt. Location: [place] [address] Patient Status: I Ordered Date: 08/20/2021 5:20:00 [...] FINDINGS: Enteric tube tip outside the inferior auooy-ns-dpxy, presumably within the stomach. Stable tracheostomy cannula. Stable cardiomediastinal silhouette. No new focal consolidation, significant effusion, or pneumothorax. Right upper extremity PICC, its tip at the mid SVC. IMPRESSION: Enteric tube tip likely within the stomach, outside the inferior eiilu-of-xbit however Electronically signed: KIKE DICKSON. Transcribed by: [id number], User Resident: Electronically Signed by: KIKE DICKSON @ 08/20/2021 07:46 PMNormalAdena Regional Medical CenterComment on above:Order Comment: Check NG Tube PositionPORTABLE CHEST 1 VIEWUnWright-Patterson [facility] Department of Radiology [address] [place] [id number] Patient Name: MEG GEORGES : 1965 Sex: F Age: Race: White Pt. Location: [place] [address] Patient Status: I Ordered Date: 08/20/2021 7:50:00 [...] indeterminate. Electronically signed: Blossom Gongora. Transcribed by: [email or web address], User Resident: BLOSSOM GONGORA Electronically Signed by: BLOSSOM GONGORA @ 08/20/2021 09:10 AM I personally read this/these film(s) with this residentMercy Health Tiffin HospitalComment on above:Order Comment: evaluate for Atelectasis PORTABLE CHEST 1 VIEWUnWright-Pat[facility] Department of Radiology [address] [place] [phone] Patient Name: MEG GEORGES : 1965 Sex: F Age: Race: White Pt. Location: [facility] Patient Status: E Ordered Date: 08/19/2021 [...] abnormality. Electronically signed: Darci Monahan. Transcribed by: [email or web address], User Resident: Electronically Signed by: DARCI MONAHAN @ 08/19/2021 10:41 PMNormalThe [facility] HospitalComment on above:Order Comment: Check NG Tube Position PROTHROMBIN TIMEon 82-50-5021LCM Coag (PPP) [Relative time]1.70 {INR}High 0.91-1.16The [facility] HospitalComment on above:Order Comment: Check NG Tube PositionResult Comment: ACCCP RECOMMENDED INR FOR WARFARIN THERAPY ------- CONDITION INR PROPHYLAXIS OF VENOUS THROMBOSIS 2-3 (HIGH-RISK SURGERY) TREATMENT OF VENOUS THROMBOSIS 2-3 TREATMENT OF PULMONARY EMBOLISM 2-3 PREVENTION OF SYSTEMIC EMBOLISM: 2-3 ACUTE MYOCARDIAL INFARCTION TISSUE HEART VALVES VALVULAR HEART DISEASE ATRIAL FIBRILLATION RECURRENT SYSTEMIC EMBOLISM MECHANICAL HEART VALVE 2.5-3.5 FROM: ORAL ANTICOAGULANTS. MECHANISM OF ACTION, CLINICAL EFFECTIVENESS, AND OPTIMAL THERAPEUTIC RANGE. CHEST 1995;108:231S-246S.Performed By: #### 47906 ####[facility] [facility] [place] [address], USAPT Coag (PPP) [Time]19.7 sHigh 12.3-14.8The [facility] HospitalComment on above:Order Comment: Check NG Tube PositionResult Comment: ALL RESULTS MUST BE INTERPRETED WITH RESPECT TO BLOOD DRAWING ARTIFACT OR DILUTION ERROR OF ANTICOAGULANT AT THE TIME OF SAMPLING.Performed By: #### 46206 ####[facility] [facility] [place] [place] [address], USAINR Coag (PPP) [Relative time]1.47 {INR}High0.91-1.16The [facility] HospitalComment on above:Result Comment: ACCCP RECOMMENDED INR FOR WARFARIN THERAPY ------- CONDITION INR PROPHYLAXIS OF VENOUS THROMBOSIS 2-3 (HIGH-RISK SURGERY) TREATMENT OF VENOUS THROMBOSIS 2-3 TREATMENT OF PULMONARY EMBOLISM 2-3 PREVENTION OF SYSTEMIC EMBOLISM: 2-3 ACUTE MYOCARDIAL INFARCTION TISSUE HEART VALVES VALVULAR HEART DISEASE ATRIAL FIBRILLATION RECURRENT SYSTEMIC EMBOLISM MECHANICAL HEART VALVE 2.5-3.5 FROM: ORAL ANTICOAGULANTS. MECHANISM OF ACTION, CLINICAL EFFECTIVENESS, AND OPTIMAL THERAPEUTIC RANGE. CHEST 1995;108:231S-246S.Performed By: #### 83775, 48396, 77083, 78804 ####[facility] [place] [address], USAPT Coag (PPP) [Time]17.7 sHigh12.3-14.8The [facility] HospitalComment on above:Result Comment: ALL RESULTS MUST BE INTERPRETED WITH RESPECT TO BLOOD DRAWING ARTIFACT OR DILUTION ERROR OF ANTICOAGULANT AT THE TIME OF SAMPLING.Performed By: #### 85860, 62800, 43225, 18310 ####[facility] [place] [address], [facility], ROSWELLRB'S 6 UNITSon 73-52-8241YRKKIGXMNA INTERP 1COMPNormal [facility] Medical CenterComment on above:Performed By: #### 06543 ####[facility] [place] [address], [place] CROSSMATCH INTERP 2COMPNoAultman Alliance Community HospitalComment on above:Performed By: #### 47269 ####[facility] [place] [address], USACROSSMATCH INTERP 3COMPNoAultman Alliance Community HospitalComment on above:Performed By: #### 80141 ####[facility] [place] [address], USACROSSMATCH INTERP 4COMPNormACMC Healthcare System GlenbeighComment on above: Performed By: #### 78426 ####[facility] [place] [address], USACROSSMATCH INTERP 5COMPNoAultman Alliance Community HospitalComment on above:Performed By: #### 55083 ####[facility] [place] [address], USACROSSMATCH INTERP 6COMP NormalAdena Regional Medical CenterComment on above:Performed By: #### 35141 ####[facility] [place] [address], USAPRODUCT CODE [id number] Health Tiffin Hospital Comment on above:Performed By: #### 72586 ####[facility] [place] [address], USAPRODUCT CODE [id number] Alliance Community HospitalComment on above:Performed By: #### 35849 ####[facility] [place] [address], [place] PRODUCT CODE [id number] Health Tiffin HospitalComment on above:Performed By: #### 42321 ####[facility] [place] [address], USAPRODUCT CODE [id number] Health Tiffin HospitalComment on above:Performed By: #### 47792 ####[facility] [place] [address], USAPRODUCT CODE 5 [id number] Alliance Community HospitalComment on above:Performed By: #### 23754 ####[facility] [place] [address], USAPRODUCT CODE [id number] Health Tiffin Hospital Comment on above:Performed By: #### 79335 ####[facility] [place] [address], USAPRODUCT STATUS 2RENoAultman Alliance Community HospitalComment on above:Result Comment: Result changed by IF on 08/20/2021 05:40. The previous value was XM. Result changed by IF on 08/20/2021 05:48. The previous value was XX.Performed By: #### [id number] ####[facility] [place] [address], USAPRODUCT STATUS 3RMer[facility] Comment on above:Result Comment: Result changed by IF on 08/22/2021 01:00. The previous value was XM.Performed By: #### [id number] ####[facility] [place] [address], USAPRODUCT STATUS 4RMercy Health Perrysburg HospitalComment on above:Result Comment: Result changed by IF on 08/20/2021 05:40. The previous value was XM. Result changed by IF on 08/20/2021 05:48. The previous value was XX.Performed By: #### [id number] ####[facility] [place] [address], USAPRODUCT STATUS 5[facility] Comment on above:Result Comment: Result changed by IF on 08/22/2021 01:00. The previous value was XM.Performed By: #### [id number] ####[facility] [place] [address], USAPRODUCT STATUS 6RMercy Health Perrysburg HospitalComment on above:Result Comment: Result changed by IF on 08/21/2021 08:54. The previous value was XM. Result changed by IF on 08/22/2021 01:00. The previous value was XX.Performed By: #### [id number] ####[facility] [place] [address], USAUNIT ABO 1AMercy Health Tiffin HospitalComment on above:Performed By: #### [id number] ####[facility] [place] [address], USAUNIT ABO 2AMercy Health Tiffin HospitalComment on above:Performed By: #### [id number] ####[facility] [place] [address], USAUNIT ABO 3AMercy Health Tiffin HospitalComment on above:Performed By: #### [id number] ####[facility] [facility] [place] [address], [place] UNIT ABO 4AMercy Health Tiffin HospitalComment on above: Performed By: #### [id number] ####[facility] [facility] [place] [place] [address], USAUNIT ABO [address] [place], [place] [address]Comment on above:Performed By: #### [id number] ####[facility] [facility] [place] [address], USAUNIT ABO [address] [place], [place] [address]Comment on above:Performed By: #### [id number] ####[facility] [place] [address].[place] [address], USAUNIT ID 1 [id number] [facility] HospitalComment on above: Performed By: #### [id number] ####[facility] [place] [address].[place] [address], USAUNIT ID [id number] [facility] HospitalComment on above:Performed By: #### [id number] ####[facility] [place] [address].[place] [address], USAUNIT ID [id number] NormalThe Newark HospitalComment on above:Performed By: #### [id number] ####[facility] [facility] [place] [address], USAUNIT ID [id number] [facility] Comment on above:Performed By: #### [id number] ####[facility] [facility] [place] [address], USAUNIT ID [id number] [place] HospitalComment on above:Performed By: #### [id number] ####[facility] [place] [address].[place] [address], [facility] UNIT ID [id number] [facility] HospitalComment on above:Performed By: #### [id number] ####[facility] [facility] [place] [address], USAUNIT RH 1PositiveNoAultman Alliance Community HospitalComment on above:Performed By: #### [id number] ####[facility] [facility] [place] [address], USAUNIT RH 2Positive NormalThe [place] HospitalComment on above:Performed By: #### [id number] ####[address] [place] [address], USAUNIT RH 3PositiveNoAultman Alliance Community HospitalComment on above:Performed By: #### [id number] ####[facility] [place] [address].[place] [address], USAUNIT RH 4PositiveNormACMC Healthcare System GlenbeighComment on above:Performed By: #### [id number] ####[address] [place] [address], USAUNIT RH 5Positive NormalThe [place] HospitalComment on above:Performed By: #### [id number] ####[address] [place] [address], USAUNIT RH 6PositiveNormACMC Healthcare System GlenbeighComment on above:Performed By: #### [id number] ####[address] [place] [address], USATRIGLYCERIDES BLOODon 77-42-0313Zsmsbiyckbyh [Mass/Vol]147 mg/aFHpbuzj61-599Vyf [facility] HospitalComment on above:Order Comment: No: Do not add to previous drawResult Comment: TRIGLYCERIDE REFERENCE RANGE: 20 YEARS AND OLDER CARDIOVASCULAR RISK LESS THAN 150 mg/dl LOW RISK 150 TO 199 mg/dl BORDERLINE RISK 200 mg/dl AND GREATER HIGH RISKPerformed By: #### [id number] #### [facility] [address] [facility] [place] [address], [facility], ROS[facility]LLTROPONIN-Ion 54-97-1319Vykbqchg I.cardiac [Mass/Vol]0.03 ng/mLNormal0.00-0.04The [place] HospitalComment on above: Result Comment: REFERENCE RANGES: 0.00 - 0.04 ng/ml NORMAL 0.05 - 0.50 ng/ml INDETERMINATE > 0.50 ng/ml CONSISTENT WITH AN M.I.Performed By: #### [id number], [id number] ####[facility] [place] [address], [facility] TYPE AND CROSSMATCHon 66-64-5103IJG INTERPRETATIONANoAultman Alliance Community HospitalComment on above:Performed By: #### [id number] #### [facility] [address] [facility] [place] [address], [facility] ROS[facility]LLRH INTERPRETATIONPositiveNoAultman Alliance Community HospitalComment on above:Performed By: #### [id number] #### [facility] [address] [facility] [place] [place] [address], [facility], ROS[facility]LLrb emergency releaseon 11-70-0012OGKPEKSYHM INTERP 1COMP NormalAdena Regional Medical CenterComment on above:Performed By: #### RBCER ####[facility] [place] [address], [facility], ROSWELLCROSSMATCH INTERP 2COMPNoAultman Alliance Community Hospital Comment on above:Result Comment: This result added by IF on 08/20/2021 02:44. Performed By: #### RBCER ####[facility] [place] [address], [facility], ROSWELLCROSSMATCH INTERP 3COMPMercy Health Tiffin HospitalComment on above:Result Comment: This result added by IF on 08/20/2021 02:44.Performed By: #### RBCER ####[facility] [place] [address], USAPRODUCT CODE [id number] Alliance Community HospitalComment on above:Performed By: #### RBCER ####[facility] [place] [address], [place] PRODUCT CODE [id number] Healthcare System GlenbeighComment on above:Performed By: #### RBCER ####[facility] [place] [address], USAPRODUCT CODE [id number] Alliance Community HospitalComment on above:Performed By: #### RBCER ####[facility] [place] [address], USAPRODUCT STATUS 1PT NormalAdena Regional Medical CenterComment on above:Result Comment: Result changed by IF on 08/20/2021 02:42. The previous value was EI. Result changed by IF on 08/21/2021 00:30. The previous value was PI.Performed By: #### RBCER ####[facility] [place] [address], USAPRODUCT STATUS 2PTMercy Health Tiffin Hospital Comment on above:Result Comment: Result changed by IF on 08/20/2021 02:44. The previous value was EI. Result changed by IF on 08/21/2021 00:30. The previous value was PI.Performed By: #### RBCER ####[facility] [place] [address], USAPRODUCT STATUS 3PTMercy Health Tiffin Hospital Comment on above:Result Comment: Result changed by IF on 08/20/2021 02:44. The previous value was EI. Result changed by IF on 08/21/2021 00:30. The previous value was PI.Performed By: #### RBCER ####[facility] [place] [address], USAUNIT ABO 1ONoAultman Alliance Community HospitalComment on above:Performed By: #### RBCER ####[facility] [facility] [place] [address], USAUNIT ABO 2ONormACMC Healthcare System [facility]beighComment on above:Performed By: #### RBCER ####[facility] [facility] [place] [address], USAUNIT ABO 3ONoAultman Alliance Community HospitalComment on above:Performed By: #### RBCER ####[facility] [place] [address].[place] [address], [place] UNIT ID [id number] Community HospitalComment on above:Performed By: #### RBCER ####[facility] [place] [address].[place] [address], USAUNIT ID [id number] [place], [place] [address]Comment on above:Performed By: #### RBCER ####[facility] [place] [address].[place] [address], USAUNIT ID 3 [id number] [place], [place] [address]Comment on above: Performed By: #### RBCER ####[facility] [place] [address].[place] [address], USAUNIT RH 1NegaCleveland Clinic Euclid HospitalComment on above:Performed By: #### RBCER ####[facility] [place] [address].[place] [address], USAUNIT RH 2NegativeNoAultman Alliance Community HospitalComment on above:Performed By: #### RBCER ####[facility] [place] [address].[place] [address], [facility] UNIT RH 3NegMercy Health Defiance HospitalComment on above: Performed By: #### RBCER ####[facility] [place] [address], USACT BRAIN WO CONTRASTon [id number] BRAIN WO CONTRAST [facility] Department of Radiology [address] [place] [address] Patient Name: MEG GEORGES : 1965 Sex: F Age: Race: White Pt. Location: LPOP Patient Status: Ordered Date: 08/15/2021 12:05:00 PM Completed Date: 08/15/2021 04:06 PM Requesting Provider: GANGA SAVAGE Attending Provider: Report Copy To: Signs & Symptoms: R/O Bleed History: Order in [facility] [phone] Trach/vent Comments: Exam: CT BRAIN WO CONTRAST [...] findings. Electronically signed: Angel Beal. Transcribed by: [email or web address], User Resident: Electronically Signed by: ANGEL BEAL @ 08/15/2021 04:12 PMNormalAdena Regional Medical CenterBasic Metabolic Panel w/ Reflex to MGon 04-46-2374Empfk gap [Moles/Vol]11 mmol/L9 - 17 mmol/LBON [facility] THUNDERB[facility] MEDICAL CENTERSVXR Calcium [Mass/Vol]8.5 mg/dLLow8.6 - 10.4 mg/dLBON SECUBIKOD HEALTHChloride [Moles/Vol]107 mmol/L98 - 107 mmol/LBON SECUBIKOD [facility] CENTERCO2 [Moles/Vol]24 mmol/L20 - 31 mmol/LBON SECSVXRCreatinine [Mass/Vol]0.54 mg/dL0.50 - 0.90 mg/dLBON B[facility] THUNDERB[facility] MED[facility] CENTERSVXRGFR >60>60 mL/minPITTSFIELD GENERAL HOSPITALSVXRGFR Non->60>60 mL/minPITTSFIELD GENERAL HOSPITALSVXR GFR/1.73 sq M.predicted MDRD (S/P/Bld) [Vol rate/Area][facility] SYSTEMSNQ [employer] Glucose [Mass/Vol]150 mg/rPBepu15 - 99 mg/dLBON CHILDREN'S HOSPITAL OF SAN DIEGONQ Mobile Inc. Interpretation and review of laboratory resultsAbnormalBON [facility] Grovo Potassium [Moles/Vol]3.3 mmol/LLow3.7 - 5.3 mmol/LBON SECSVXRSodium [Moles/Vol]142 mmol/L135 - 144 mmol/LBON SECSVXRUrea nitrogen (BldV) [Mass/Vol]11 mg/dL6 - 20 mg/dLBON SECSTATE MENTAL HEALTH FACILITYThreadbox [facility] CENTERBON [facility] THUNDERB[facility] MEDICAL CENTERBumpTop MERCY HOSPITALThreadbox [facility] MEDICAL CENTERCBC with Auto Differentialon 66-85-4996Ueyjckfn Eos #0.45HighBON SECBumpTop MERCY HOSPITALY GrovoAbsolute Immature Granulocyte<0.03BON [facility] SAN DIEGOBLANCHARD VALLEY HEALTH SYSTEM BLANCHARD VALLEY HOSPITALAbsolute Lymph #2.27BON SECKINDRED HOSPITAL LIMAAbsolute Thomas #0.58BON [facility] Basophils (Bld) [#/Vol]0.05 10*3/uLBON [facility] MEDICAL CENTERBasophils/100 WBC (Bld)1 %0 - 2 %[facility] WILLIAMSBURGEosinophils/100 WBC (Bld)5 %High1 - 4 % [facility] WILLIAMSBURGHematocrit (Bld) [Volume fraction]28.0 %Low36.3 - 47.1 % [facility] WILLIAMSBURGHemoglobin (Bld) [Mass/Vol]8.9 g/dLLow11.9 - 15.1 g/dL [facility] WILLIAMSBURGImmature granulocytes/100 WBC (Bld)0 %0R[facility] WILLIAMSBURGInterpretation and review of laboratory resultsAbnormalBON [facility] PARMA MEDICAL CENTERLymphocytes/100 WBC (Bld)25 %24 - 43 %[facility]OSPITALH (RBC) [Entitic mass]31.3 pg25.2 - 33.5 pgBON [facility]FIELD HOSPITALHC (RBC) [Mass/Vol] 31.8 g/dL28.4 - 34.8 g/dLBON [facility] MANSFIELD HOSPITALV (RBC) [Entitic vol]98.6 fL 82.6 - 102.9 fLRIVERSIDE DOCTORS' HOSPITAL WILLIAMSBURGMonocytes/100 WBC (Bld)7 %3 - 12 %[facility] WILLIAMSBURGNRBC Automated0.00.0 per 100 WBCRIVERSIDE DOCTORS' HOSPITAL WILLIAMSBURG Platelet distribution width (Bld) [Ratio]17.5 %High11.8 - 14.4 %[facility] WILLIAMSBURGPlatelet mean volume (Bld) [Entitic vol]8.8 fL8.1 - 13.5 fLCARILION STONEWALL JACKSON HOSPITAL HEALTHPlatelets (Bld) [#/Vol]576 10*3/uLHighRIVERSIDE DOCTORS' HOSPITAL WILLIAMSBURGRBC (Bld) [#/Vol]2.84 10*6/uLLow3.95 - 5.11 m/uLRIVERSIDE DOCTORS' HOSPITAL WILLIAMSBURG RBC (Bld) [#/Vol]ANISOCYTOSIS PRESENTRIVERSIDE DOCTORS' HOSPITAL WILLIAMSBURGSeg Dfabdaxitgq01 % 36 - 65 %BON [facility] MEDICAL CENTERSegs Absolute5.62BON [facility]MA MEDICAL CENTERWBC (Bld) [#/Vol]9.0 10*3/uLBON [facility] Magnesiumon 58-96-3605Pozbegwpe [Mass/Vol]1.8 mg/dL1.6 - 2.6 mg/dLBON [facility] Glucose Fingerstickon 89-29-5014Nnftwwd [Mass/Vol]188 mg/lIKxnr24 - 105 mg/dLBON [facility] MEDICAL CENTERInterpretation and review of laboratory resultsAbnormalRUSSELL COUNTY MEDICAL CENTERGlucose [Mass/Vol]218 mg/lNQrtu61 - 105 mg/dLBON [facility] Interpretation and review of laboratory resultsAbnormalSENTARA MARTHA JEFFERSON HOSPITALGlucose [Mass/Vol]133 mg/jPQbfi06 - 105 mg/dLBON [facility] HEALTHInterpretation and review of laboratory resultsAbnormVCU Medical Center Glucose Fingerstickon 97-71-5682Tvolyzw [Mass/Vol]204 mg/uJWzps20 - 105 mg/dLBON [facility] MEDICAL CENTERInterpretation and review of laboratory resultsAbnormalBON [facility]ALL[facility] SURGICAL CENTERGlucose [Mass/Vol]184 mg/sRLxca47 - 105 mg/dLBON [facility] HEALTH Interpretation and review of laboratory resultsAbnormalSENTARA MARTHA JEFFERSON HOSPITALGlucose [Mass/Vol]202 mg/jDIspf14 - 105 mg/dLBON [facility] MEDICAL CENTERInterpretation and review of laboratory resultsAbnormalRUSSELL COUNTY MEDICAL CENTERGlucose [Mass/Vol]126 mg/bYKzjk92 - 105 mg/dLBON [facility] HEALTHInterpretation and review of laboratory results AbnormalBON [facility]ALL[facility] SURGICAL CENTERBasic Metabolic Panel w/ Reflex to MGon 79-99-4012Chlcp gap [Moles/Vol]11 mmol/L9 - 17 mmol/LBON [facility] MEDICAL CENTERCalcium [Mass/Vol]7.9 mg/dLLow8.6 - 10.4 mg/dLBON SECOURS MERCY HEALTHChloride [Moles/Vol]108 mmol/LHigh98 - 107 mmol/LBON [facility] CO2 [Moles/Vol]22 mmol/L20 - 31 mmol/LBON [facility]RS MERCY HEALTHCreatinine [Mass/Vol]0.59 mg/dL0.50 - 0.90 mg/dLBON [facility]RS MERCY HEALTHGFR >60>60 mL/minBON SECOURS MERCY HEALTHGFR Non->60>60 mL/minBON SECOURS MERCY HEALTHGFR/1.73 sq M.predicted MDRD (S/P/Bld) [Vol rate/Area][facility] HEALTHGlucose [Mass/Vol]193 mg/rTTusn58 - 99 mg/dL B[facility] MERCY HOSPITALY HEALTHInterpretation and review of laboratory resultsAbnormal [facility] HEALTHPotassium [Moles/Vol]3.8 mmol/L3.7 - 5.3 mmol/LBON [facility]OURS MERCY HEALTHSodium [Moles/Vol]141 mmol/L135 - 144 mmol/LBON [facility]OURS MERCY HEALTHUrea nitrogen (BldV) [Mass/Vol]11 mg/dL6 - 20 mg/dLBON SECOURS MERCY HEALTHBON SECOURS MERCY HOSPITALY HEALTHCBC with Auto Differentialon 38-34-7035Wbgooent Eos #0.29B[facility] HEALTHAbsolute Immature Granulocyte0.04B[facility]CY HEALTHAbsolute Lymph #2.17B[facility] HEALTHAbsolute Thomas #0.64B[facility] HEALTHBasophils (Bld) [#/Vol]0.04 10*3/uLBON [facility]RS [facility] Basophils/100 WBC (Bld)0 %0 - 2 %[facility] MERCY HEALTHEosinophils/100 WBC (Bld)3 %1 - 4 %[facility]CY HEALTHHematocrit (Bld) [Volume fraction]24.6 % Low36.3 - 47.1 %[facility] MERCY HEALTHHemoglobin (Bld) [Mass/Vol]8.0 g/dLLow 11.9 - 15.1 g/dLBON SECOURS MERCY HEALTHImmature granulocytes/100 WBC (Bld)0 %0 [facility] HEALTHInterpretation and review of laboratory resultsAbnormal BON SECSAINT FRANC[facility] SPECIALTY [facility]ITAL HEALTHLymphocytes/100 WBC (Bld)23 %Low24 - 43 %BON SECOURS MERCY HOSPITALY [facility] MEDICAL CENTERH (RBC) [Entitic mass]31.7 pg25.2 - 33.5 pgBON SECOURS [facility]OSPITALHC (RBC) [Mass/Vol]32.5 g/dL28.4 - 34.8 g/dLBON SECPREMIER HEALTH UPPER VALLEY MEDICAL CENTERV (RBC) [Entitic vol]97.6 fL82.6 - 102.9 fLOR[facility] SECSAINT FRANCIS SPECIALTY [facility]OSPITAL HEALTHMonocytes/100 WBC (Bld)7 %3 - 12 %BON SECSAINT FRANCIS SPECIALTY HOSPITAL HEALTHNRBC Automated0.00.0 per 100 WBCBON SECOURS MERCY HOSPITALY HEALTHPlatelet distribution width (Bld) [Ratio]17.8 %High11.8 - 14.4 %BON [facility] MERCY HOSPITALY HEALTHPlatelet mean volume (Bld) [Entitic vol]8.9 fL8.1 - 13.5 fLOR[facility] SECSAINT FRANCIS SPECIALTY [facility]OSPITAL HEALTHPlatelets (Bld) [#/Vol]514 10*3/uLHighBON SECOURS MERCY HOSPITALY HEALTHRBC (Bld) [#/Vol]2.52 10*6/uLLow3.95 - 5.11 m/uLOR[facility] SECOURS MERCY HOSPITALY HEALTHRBC (Bld) [#/Vol]ANISOCYTOSIS PRESENTORO [facility] SECSAINT FRANC[facility] SPECIAL[facility] HEALTHSeg Spoqmkysptg55 %High36 - 65 %BON SECSTATE MENTAL HEALTH FACILITYY HEALTHSegs Absolute6.36BON SECSAINT FRANCIS SPECIALTY HOSPITAL HEALTHWBC (Bld) [#/Vol]9.5 10*3/uL[facility] SECSAINT FRANCIS SPECIAL[facility]OS[facility] HEALTHOR[facility]LEY [facility] SECOURS MERCY HOSPITALY HEALTHEKG 12 LeadOrdered By: Deshawn Galloway on 56-26-2767Lwfwgj Ugdt14JOS [facility] HEALTH Work Phone: P [id number] SECSAINT [facility]ANCIS [facility] HEALTH Work Phone: P-R [id number] msORO [facility] SECOURS MERCY HOSPITALY HEALTH Work Phone: Q-T [id number] msOR[facility] SECBumpTop [facility] HEALTH Work Phone: QRS Drhofmsz31 msOR[facility] SECSAINT [facility] HEALTH Work Phone: QTc Calculation (Dm)457 msARASELI BANNER THUNDERBIRD MEDICAL CENTERVigno Grovo Work Phone: R [place]-4degreesBON BAN[facility] THUNDERBIRD MEDICAL CENTERVigno Grovo Work Phone: T [id number] SECVigno HEALTH Work Phone: Ventricular Ncir39YUUHAR [facility] MEDICAL CENTERBumpTop [facility]ALTH Work Phone: BON [facility] THUNDERBIRD MEDICAL CENTERVigno Grovo Work Phone: EKG 12 Leadon 09-75-5961EGYB STV MUSEARASELI [facility] THUNDERBIRD MEDICAL CENTERBumpTop [facility] Grovo Work Phone: poc Glucose Fingerstickon 90-26-0553Kfgykzg [Mass/Vol] 147 mg/cWVplm05 - 105 mg/dLBON SECSAINT FRANCIS SPECIALTY HOSPITAL HEALTHInterpretation and review of laboratory resultsAbnormalR[facility]IDE [facility]ALTH Glucose [Mass/Vol]157 mg/zMLulz65 - 105 mg/dLBON SECSAINT FRANCIS SPECIALTY [facility]OS[facility] HEALTH Interpretation and review of laboratory resultsAbnormalCARILION CLINIC HEALTHGlucose [Mass/Vol]207 mg/xUAxui03 - 105 mg/dLBON SECOURS MERCY HOSPITALY HEALTHInterpretation and review of laboratory resultsAbnormalRIVERSIDE [facility] HEALTHGlucose [Mass/Vol]214 mg/yINixh67 - 105 mg/dLBON [facility] HEALTHInterpretation and review of laboratory results [facility] HospitalBON [facility] Glucose Fingerstick on 90-48-6535Afnwasj [Mass/Vol]206 mg/oCIrkp14 - 105 mg/dLBON [facility]OU[facility] MERCY HEALTHInterpretation and review of laboratory resultsAbnormalRIVERSIDE [facility] HEALTHGlucose [Mass/Vol]202 mg/eJJsux10 - 105 mg/dLBON [facility] HEALTHInterpretation and review of laboratory resultsAbnormalRIVERSIDE [facility]PAH[facility] HEALTHGlucose [Mass/Vol]179 mg/iKEbyg72 - 105 mg/dLBON SECOURS MERCY HOSPITALY HEALTHInterpretation and review of laboratory results AbnormalBON [facility] HEALTHGlucose [Mass/Vol]144 mg/fOAwih95 - 105 mg/dLBON [facility] MEDICAL CENTERInterpretation and review of laboratory resultsAbnormRiverside Health System Glucose [Mass/Vol]154 mg/yFYylt92 - 105 mg/dLBON [facility] Interpretation and review of laboratory resultsAbnormInova Women's Hospital ARASELI [facility] CENTERGlucose [Mass/Vol]150 mg/hZRvap80 - 105 mg/dLBON [facility] MEDICAL CENTERInterpretation and review of laboratory resultsAbnormalRUSSELL COUNTY MEDICAL CENTERGlucose [Mass/Vol]153 mg/pLLbkp36 - 105 mg/dLBON [facility] MEDICAL CENTERInterpretation and review of laboratory results AbnormalRUSSELL COUNTY MEDICAL CENTERTSHon 08-07-2021 Interpretation and review of laboratory resultsAbnoChesapeake Regional Medical Center TSH Qn7.90 m[IU]/LHighRUSSELL COUNTY MEDICAL CENTERXR CERVICAL SPINE FLEXION AND EXTENSIONon 64-66-7864OLUP RIS CONSOLIDATEDPN RIS [facility] Work Phone: radiology Study observation (narrative)[facility] Work Phone: XR CERVICAL SPINE FLEXION AND EXTENSIONOrdered By: Paramjit Saenz on 95-91-8668BQYRIVERSIDE HEALTH SYSTEM Grovo Work Phone: Basic Metabolic Panel w/ Reflex to MGon 08-06-2021 Anion gap [Moles/Vol]11 mmol/L9 - 17 mmol/LBON [facility] MEDICAL CENTERCalcium [Mass/Vol]8.5 mg/dLLow8.6 - 10.4 mg/dLBON [facility] MEDICAL CENTERChloride [Moles/Vol]109 mmol/LHigh98 - 107 mmol/LBON [facility] MEDICAL CENTERCO2 [Moles/Vol] 23 mmol/L20 - 31 mmol/LBON [facility] MEDICAL CENTERCreatinine [Mass/Vol]0.55 mg/dL 0.50 - 0.90 mg/dLBON [facility] MEDICAL CENTERGFR >60>60 mL/minRIVERSIDE DOCTORS' HOSPITAL WILLIAMSBURGGFR Non->60>60 mL/minBON [facility] MEDICAL CENTERGFR/1.73 sq M.predicted MDRD (S/P/Bld) [Vol rate/Area]BON [facility] MEDICAL CENTERGlucose [Mass/Vol]48 mg/dLLow70 - 99 mg/dLBON [facility] Interpretation and review of laboratory resultsAbnormalRIVERSIDE [facility] Potassium [Moles/Vol]3.6 mmol/LLow3.7 - 5.3 mmol/LBON [facility] PARMA MEDICAL CENTERSodium [Moles/Vol]143 mmol/L135 - 144 mmol/LBON [facility] PARMA MEDICAL CENTERUrea nitrogen (BldV) [Mass/Vol]11 mg/dL6 - 20 mg/dLBON SIOUX FALLS SURGICAL CENTERCBC with Auto Differentialon 68-13-3565Khtxerpo Eos #0.28BON SECKINDRED HOSPITAL LIMAAbsolute Immature Granulocyte0.07BON [facility]PITALAbsolute Lymph # 2.04B[facility] HOSPITALAbsolute Thomas #0.61BON [facility]ENTEROURS WILSON MEM[facility]IAL HOSPITALBasophils (Bld) [#/Vol]0.04 10*3/uLBON SECOURS WILSON MEMORIAL HOSPITALBasophils/100 WBC (Bld)0 %0 - 2 %[facility]IAMSBURGEosinophils/100 WBC (Bld)2 %1 - 4 %[facility] WILLIAMSBURGHematocrit (Bld) [Volume fraction]26.3 %Low36.3 - 47.1 %[facility] WILLIAMSBURGHemoglobin (Bld) [Mass/Vol]8.6 g/dLLow11.9 - 15.1 g/dLBON MET[facility]MA MEDICAL CENTERImmature granulocytes/100 WBC (Bld)1 %Wxsu9TAURIVERSIDE DOCTORS' HOSPITAL WILLIAMSBURG Interpretation and review of laboratory resultsAbnormalRIVERSIDE DOCTORS' [facility]OS[facility] WILL[facility]SB[facility] Lymphocytes/100 WBC (Bld)17 %Low24 - 43 %[facility]ITALH (RBC) [Entitic mass]31.9 pg25.2 - 33.5 pgWELLMONT LONESOME PINE MT. VIEW HOSPITALHC (RBC) [Mass/Vol] 32.7 g/dL28.4 - 34.8 g/dLBON SECOURS MERCY HEALTHMCV (RBC) [Entitic vol]97.4 fL 82.6 - 102.9 fLRIVERSIDE DOCTORS' HOSPITAL WILLIAMSBURGMonocytes/100 WBC (Bld)5 %3 - 12 %BON [facility] MEDICAL CENTERNRBC Automated0.00.0 per 100 WBCRIVERSIDE DOCTORS' HOSPITAL WILL[facility]SB[facility] Platelet distribution width (Bld) [Ratio]18.0 %High11.8 - 14.4 %[facility] MEDICAL CENTERPlatelet mean volume (Bld) [Entitic vol]8.4 fL8.1 - 13.5 fLRIVERSIDE DOCTORS' HOSPITAL WILLIAMSBURGPlatelets (Bld) [#/Vol]565 10*3/uLHighBON METROHEALTH PARMA MEDICAL CENTERRBC (Bld) [#/Vol]2.70 10*6/uLLow3.95 - 5.11 m/uLRIVERSIDE DOCTORS' HOSPITAL [facility] RBC (Bld) [#/Vol]ANISOCYTOSIS PRESENTBON METROHEALTH PARMA MEDICAL CENTERSeg Itqzemstajo71 % High36 - 65 %[facility] CENTERSegs Absolute9.28HighRIVERSIDE DOCTORS' HOSPITAL WILLIAMSBURGWBC (Bld) [#/Vol]12.3 10*3/uLHighBON SIOUX FALLS SURGICAL CENTERNo Panel Informationon [id number] and review of laboratory resultsAbnormalRUSSELL COUNTY MEDICAL CENTERPOC Glucose Fingerstickon [id number] [Mass/Vol]158 mg/zZDafz97 - 105 mg/dLBON [facility] HEALTHInterpretation and review of laboratory resultsAbnormalBON SECCHILDR[facility] MILWAUKEEGlucose [Mass/Vol]125 mg/yRCkzg06 - 105 mg/dLBON SECSA[facility] HEALTHInterpretation and review of laboratory results AbnormalBON [facility] CENTERGlucose [Mass/Vol]128 mg/cBTtfc82 - 105 mg/dLBON [facility] HEALTHInterpretation and review of laboratory resultsAbnormalR[facility]SE[facility] Glucose [Mass/Vol]106 mg/nKEdgo08 - 105 mg/dLBON [facility]ALTH Interpretation and review of laboratory resultsAbnormalRIVERSIDE [facility] HEALTHGlucose [Mass/Vol]109 mg/uMCsfc98 - 105 mg/dLBON [facility] CENTERInterpretation and review of laboratory resultsAbnormalBON SECCHILDR[facility] MILWAUKEEGlucose [Mass/Vol]39 mg/dLCritically low65 - 105 mg/dLBON [facility] HEALTHInterpretation and review of laboratory resultsAbnormalBON [facility] HEALTHGlucose [Mass/Vol]43 mg/dLLow65 - 105 mg/dLBON [facility] CENTERGlucose [Mass/Vol]116 mg/vEJsri86 - 105 mg/dLBON [facility]ICAL CENTERArterial Blood Gas, POCon 72-05-2064OQB901.0BON [facility] MEDICAL CENTERHCO3 (Bld) [Moles/Vol]26.0 mmol/L21.0 - 28.0 mmol/LBON [facility] MEDICAL CENTERO2 Device/Flow/%Adult VentilatorBON [facility] MEDICAL CENTEROxygen saturation in Blood99 %High94.0 - 98.0 %[facility] xCY179.7B[facility] pH7.435B[facility] [id number] [facility] CENTERPositive Base Excess, [id number] [facility]ENTERSample SiteArterial LineBON [facility]ICAL CENTERBasic Metabolic Panel w/ Reflex to MGon 50-85-8770Dultj gap [Moles/Vol]11 mmol/L9 - 17 mmol/LBON [facility] CENTERCalcium [Mass/Vol]8.5 mg/dLLow8.6 - 10.4 mg/dLBON [facility] CENTERChloride [Moles/Vol]109 mmol/LHigh98 - 107 mmol/LBON [facility] CO2 [Moles/Vol]23 mmol/L20 - 31 mmol/LBON [facility] CENTERCreatinine [Mass/Vol]0.53 mg/dL0.50 - 0.90 mg/dLBON [facility] CENTERGFR >60>60 mL/minBON [facility] HEALTHGFR Non->60>60 mL/minBON [facility] HEALTHGFR/1.73 sq M.predicted MDRD (S/P/Bld) [Vol rate/Area][facility] LIMAGlucose [Mass/Vol]121 mg/mEJyli30 - 99 mg/dL [facility] LIMAInterpretation and review of laboratory resultsAbnormal [facility]ITALPotassium [Moles/Vol]3.5 mmol/LLow3.7 - 5.3 mmol/LBON [facility]IL[facility] HOSPITALSodium [Moles/Vol]143 mmol/L135 - 144 mmol/LBON [facility]IL[facility]ORIAL HOSPITALUrea nitrogen (BldV) [Mass/Vol]14 mg/dL6 - 20 mg/dLBON [facility] HOSPITALBON SECKINDR[facility]ITAL LIMACBC with Auto Differentialon 80-11-5823Znzdvgmg Eos #0.25B[facility]OSPITALAbsolute Immature Granulocyte0.05B[facility]OSPITALAbsolute Lymph #1.83B[facility]OSPITALAbsolute Thomas #0.57BON [facility] CENTERBasophils (Bld) [#/Vol]10*3/uLBON [facility] Basophils/100 WBC (Bld)0 %0 - 2 %[facility]IAMSBURGEosinophils/100 WBC (Bld)3 %1 - 4 %[facility] WILLIAMSBURGHematocrit (Bld) [Volume fraction]24.2 % Low36.3 - 47.1 %[facility] WILLIAMSBURGHemoglobin (Bld) [Mass/Vol]7.7 g/dLLow 11.9 - 15.1 g/dLBON [facility]DR[facility] LIMAImmature granulocytes/100 WBC (Bld)1 % Sbno8GOGRIVERSIDE DOCTORS' HOSPITAL WILLIAMSBURGInterpretation and review of laboratory results AbnormalRIVERSIDE DOCTORS' HOSPITAL WILLIAMSBURGLymphocytes/100 WBC (Bld)19 %Low24 - 43 %[facility]PITALH (RBC) [Entitic mass]31.2 pg25.2 - 33.5 pgWELLMONT LONESOME PINE MT. VIEW HOSPITALHC (RBC) [Mass/Vol]31.8 g/dL28.4 - 34.8 g/dLBON [facility] HOSPITALV (RBC) [Entitic vol]98.0 fL82.6 - 102.9 fLRIVERSIDE DOCTORS' HOSPITAL WILLIAMSB[facility]G Monocytes/100 WBC (Bld)6 %3 - 12 %[facility] HEALTHNRBC Automated0.00.0 per 100 WBCBON [facility] HEALTHPlatelet distribution width (Bld) [Ratio]18.3 %High11.8 - 14.4 %[facility] HEALTHPlatelet mean volume (Bld) [Entitic vol]8.6 fL8.1 - 13.5 fLCARILION STONEWALL JACKSON HOSPITAL HEALTHPlatelets (Bld) [#/Vol]458 10*3/uLHighBON [facility] HEALTHRBC (Bld) [#/Vol]2.47 10*6/uLLow3.95 - 5.11 m/uLBON [facility] HEALTHRBC (Bld) [#/Vol]ANISOCYTOSIS PRESENTRIVERSIDE DOCTORS' HOSPITAL WILLIAMSBURGSeg Lkndyiglvsj87 %High36 - 65 %[facility] HEALTHSegs Absolute6.77[facility] HEALTHWBC (Bld) [#/Vol]9.5 10*3/uLBON SI[facility]X FALLS SURGICAL CENTERMagnesiumon 51-88-1503Vompoacsn [Mass/Vol] 1.8 mg/dL1.6 - 2.6 mg/dLBON [facility] CENTERNo Panel Informationon 13-07-5638Qjhmfpgurbhxco and review of laboratory resultsAbnormal [facility]ENTERPO Glucose Fingerstickon 31-29-2145Coqssar [Mass/Vol]130 mg/nIWlnh90 - 105 mg/dLB[facility]ALTH Interpretation and review of laboratory resultsAbnormalCARILION CLINIC HEALTHGlucose [Mass/Vol]139 mg/mOXqto87 - 105 mg/dLBON SECSA[facility] HEALTHInterpretation and review of laboratory resultsAbnormalBON [facility] HEALTHGlucose [Mass/Vol]126 mg/pBJvjm89 - 105 mg/dLBON [facility] HEALTHInterpretation and review of laboratory results AbnormalBON [facility]ALL[facility] SURGICAL CENTERGlucose [Mass/Vol]151 mg/nBDzju22 - 105 mg/dLBON [facility] HEALTHInterpretation and review of laboratory resultsAbnormalBON [facility] CENTERPOCT Glucoseon 40-47-9045Plduaew [Mass/Vol]112 mg/vBYsch24 - 100 mg/dLBON [facility] LIMABasic Metabolic Panel w/ Reflex to MGon 46-57-9740Ovlia gap [Moles/Vol]11 mmol/L9 - 17 mmol/LBON [facility] LIMACalcium [Mass/Vol]8.1 mg/dLLow8.6 - 10.4 mg/dLBON SECSAINT [facility] HEALTHChloride [Moles/Vol]108 mmol/L High98 - 107 mmol/LBON [facility] HEALTHCO2 [Moles/Vol]22 mmol/L20 - 31 mmol/LBON [facility] HOSPITALCreatinine [Mass/Vol]0.57 mg/dL0.50 - 0.90 mg/dL [facility] HEALTHGFR >60>60 mL/minRIVERSIDE DOCTORS' HOSPITAL WILLIAMSBURGGFR Non->60>60 mL/minRIVERSIDE DOCTORS' HOSPITAL WILLIAMSBURGGFR/1.73 sq M.predicted MDRD (S/P/Bld) [Vol rate/Area]BON [facility] CENTERGlucose [Mass/Vol]195 mg/uELrbv71 - 99 mg/dLBON [facility] CENTERInterpretation and review of laboratory resultsAbnormalBON [facility] LIMAPotassium [Moles/Vol]3.5 mmol/LLow3.7 - 5.3 mmol/LBON [facility] CENTERSodium [Moles/Vol]141 mmol/L135 - 144 mmol/LBON [facility] MEDICAL CENTERUrea nitrogen (BldV) [Mass/Vol]17 mg/dL6 - 20 mg/dLBON [facility] FALLS SURGICAL CENTERCBC with Auto Differentialon 36-11-5683Vgyivlmh Eos #0.24B[facility]ITALY HEALTHAbsolute Immature Granulocyte0.07B[facility]ITALY HEALTHAbsolute Lymph # 1.77[facility] HEALTHAbsolute Thomas #0.72B[facility]OSPITALBasophils (Bld) [#/Vol]10*3/uLBON [facility] HOSPITALY HEALTHBasophils/100 WBC (Bld)0 %0 - 2 % B[facility] HOSPITALEosinophils/100 WBC (Bld)2 %1 - 4 %BON [facility] CENTERHematocrit (Bld) [Volume fraction]23.7 %Low36.3 - 47.1 %BON [facility] CENTERHemoglobin (Bld) [Mass/Vol]8.0 g/dLLow11.9 - 15.1 g/dLBON [facility] LIMAImmature granulocytes/100 WBC (Bld)1 %Wopq4GLT [facility] Interpretation and review of laboratory resultsAbnormalBON [facility] Lymphocytes/100 WBC (Bld)17 %Low24 - 43 %BON [facility]OSPITALH (RBC) [Entitic mass]32.3 pg25.2 - 33.5 pgBON SECPREMIER HEALTH [facility]PP[facility] MEDICAL CENTERHC (RBC) [Mass/Vol] 33.8 g/dL28.4 - 34.8 g/dLBON SECPREMIER HEALTH UPPER VALLEY MEDICAL CENTERV (RBC) [Entitic vol]95.6 fL 82.6 - 102.9 fLBON [facility] CENTERMonocytes/100 WBC (Bld)7 %3 - 12 %[facility] WILLIAMSBURGNRBC Automated0.00.0 per 100 WBCBON [facility] Platelet distribution width (Bld) [Ratio]18.4 %High11.8 - 14.4 %BON [facility] CENTERPlatelet mean volume (Bld) [Entitic vol]8.7 fL8.1 - 13.5 fLBON [facility] LIMAPlatelets (Bld) [#/Vol]429 10*3/uLBON [facility] RBC (Bld) [#/Vol]2.48 10*6/uLLow3.95 - 5.11 m/uLBON [facility] LIMARBC (Bld) [#/Vol]ANISOCYTOSIS PRESENTBON [facility] CENTERSeg Wbxfjqwfqgw15 %High 36 - 65 %[facility] LIMASegs Absolute7.64BON [facility] HOSPITALWBC (Bld) [#/Vol]10.5 10*3/uLBON [facility] BURLINGTONLipase on 62-20-6149Lxcouq [Catalytic activity/Vol]16 U/L13 - 60 U/LBON [facility] SECSAINT [facility] HEALTHMagnesiumon 10-31-4841Tsfoavagc [Mass/Vol]1.9 mg/dL1.6 - 2.6 mg/dLBON [facility] Glucose Fingerstickon 26-87-5483Rneledz [Mass/Vol]170 mg/vRIkmz66 - 105 mg/dLBON [facility] CENTERInterpretation and review of laboratory resultsAbnormalBON SECCHILDREN'S [facility] MILWAUKEEGlucose [Mass/Vol]118 mg/mNInuu37 - 105 mg/dLBON [facility] CENTERInterpretation and review of laboratory results AbnormalBON [facility] CENTERGlucose [Mass/Vol]226 mg/vJXtbb72 - 105 mg/dLBON [facility] CENTERInterpretation and review of laboratory resultsAbnormalR[facility] Glucose [Mass/Vol]192 mg/sKHagm94 - 105 mg/dLBON [facility] Interpretation and review of laboratory resultsAbnormInova Women's Hospital BON [facility]ENTERArterial Blood Gas, POCon 85-90-4010Tppbb TestNOT APPLICABLERIVERSIDE DOCTORS' HOSPITAL WILLIAMSBURGFIO230.0BON [facility]ICAL CENTERHCO3 (Bld) [Moles/Vol]24.5 mmol/L21.0 - 28.0 mmol/LBON [facility]ENTERModePRVCBON [facility]ICAL CENTERO2 Device/Flow/%Adult VentilatorRIVERSIDE [facility]ORS' [facility] Oxygen saturation in Blood99 %High94.0 - 98.0 %[facility] pCO2 31.7LowB[facility] pH7.497HighINOVA HEALTH SYSTEM PO2 116.0[facility] HospitalPositive Base Excess, [id number] [facility]ENTERSample SiteArterial LineRIVERSIDE DOCTORS' HOSPITAL WILLIAMSBURGBasic Metabolic Panel w/ Reflex to MGon 39-99-7793Tzfep gap [Moles/Vol]10 mmol/L9 - 17 mmol/LBON [facility] CENTERCalcium [Mass/Vol]8.3 mg/dLLow8.6 - 10.4 mg/dLBON [facility] HEALTHChloride [Moles/Vol]107 mmol/L98 - 107 mmol/LBON [facility] HEALTHCO2 [Moles/Vol]22 mmol/L20 - 31 mmol/LBON [facility] HEALTHCreatinine [Mass/Vol] 0.6 mg/dL0.50 - 0.90 mg/dLBON [facility] HEALTHGFR >60>60 mL/minBON [facility] HEALTHGFR Non->60>60 mL/minBON SEC[facility] MERCY HOSPITALY HEALTHGFR/1.73 sq M.predicted MDRD (S/P/Bld) [Vol rate/Area][facility] HEALTHGlucose [Mass/Vol]210 mg/eIBvff36 - 99 mg/dLBON [facility]OSPITALY HEALTH Interpretation and review of laboratory resultsAbnormalBON [facility]OS[facility]ITALY HEALTH Potassium [Moles/Vol]3.6 mmol/LLow3.7 - 5.3 mmol/LBON [facility] HEALTHSodium [Moles/Vol]139 mmol/L135 - 144 mmol/LBON [facility] HEALTHUrea nitrogen (BldV) [Mass/Vol]15 mg/dL6 - 20 mg/dLBON [facility] HEALTHBON SEC[facility] MERCY HOSPITALY [facility] CENTERCBC with Auto Differentialon 19-90-6433Yvldjjnr Eos #0.19[facility] HEALTHAbsolute Immature Granulocyte0.11[facility] HEALTHAbsolute Lymph # 1.74[facility] HEALTHAbsolute Thomas #0.92[facility] HEALTHBasophils (Bld) [#/Vol]0.03 10*3/uLBON [facility] HEALTHBasophils/100 WBC (Bld)0 %0 - 2 %[facility] HEALTHEosinophils/100 WBC (Bld)2 %1 - 4 %[facility] HEALTHHematocrit (Bld) [Volume fraction]24.8 %Low36.3 - 47.1 %[facility] HEALTHHemoglobin (Bld) [Mass/Vol]8.3 g/dLLow11.9 - 15.1 g/dLBON [facility] HEALTHImmature granulocytes/100 WBC (Bld)1 %Ljbh7YFN [facility]OS[facility]ITALY HEALTH Interpretation and review of laboratory resultsAbnormalB[facility] Lymphocytes/100 WBC (Bld)15 %Low24 - 43 %[facility]PITALH (RBC) [Entitic mass]31.6 pg25.2 - 33.5 pgWELLMONT LONESOME PINE [facility]. [facility]IEW HOSPITALHC (RBC) [Mass/Vol] 33.5 g/dL28.4 - 34.8 g/dLBON [facility] HOSPITALV (RBC) [Entitic vol]94.3 fL 82.6 - 102.9 fLRIVERSIDE DOCTORS' HOSPITAL WILLIAMSBURGMonocytes/100 WBC (Bld)8 %3 - 12 %[facility] WILLIAMSBURGNRBC Automated0.00.0 per 100 WBCRIVERSIDE DOCTORS' HOSPITAL WILLIAMSBURG Platelet distribution width (Bld) [Ratio]18.5 %High11.8 - 14.4 %[facility] WILLIAMSBURGPlatelet mean volume (Bld) [Entitic vol]8.8 fL8.1 - 13.5 fLRIVERSIDE DOCTORS' HOSPITAL WILLIAMSBURGPlatelets (Bld) [#/Vol]429 10*3/uLRIVERSIDE DOCTORS' HOSPITAL WILLIAMSBURG RBC (Bld) [#/Vol]2.63 10*6/uLLow3.95 - 5.11 m/uLRIVERSIDE DOCTORS' HOSPITAL WILLIAMSBURGRBC (Bld) [#/Vol]ANISOCYTOSIS PRESENTRIVERSIDE DOCTORS' HOSPITAL WILLIAMSBURGSeg Hdrygjolhnx68 %High 36 - 65 %[facility] WILLIAMSBURGSegs Absolute8.94HighRIVERSIDE DOCTORS' [facility]OS[facility] WBC (Bld) [#/Vol]11.9 10*3/uLHighRUSSELL COUNTY MEDICAL CENTERNo Panel Informationon 27-00-3303Kwqxpovdepizok and review of laboratory resultsAbnormalRUSSELL COUNTY MEDICAL CENTERPO Glucose Fingerstickon 05-18-2405Oszydml [Mass/Vol]302 mg/rYEwez86 - 105 mg/dLBON [facility] CENTERInterpretation and review of laboratory resultsAbnormalRUSSELL COUNTY MEDICAL CENTERGlucose [Mass/Vol]246 mg/gJVftc35 - 105 mg/dLBON [facility] CENTERInterpretation and review of laboratory results AbnormalBON [facility] CENTERGlucose [Mass/Vol]196 mg/zKCtbv37 - 105 mg/dLBON [facility] CENTERInterpretation and review of laboratory resultsAbnormalR[facility] Glucose [Mass/Vol]222 mg/iMPham79 - 105 mg/dLBON [facility] Interpretation and review of laboratory resultsAbnormInova Women's Hospital BON [facility] CENTERGlucose [Mass/Vol]216 mg/mOQcyg43 - 105 mg/dLBON [facility] CENTERInterpretation and review of laboratory resultsAbnormalRUSSELL COUNTY MEDICAL CENTERPOCT Glucoseon 73-14-9070Gjwdiwt [Mass/Vol] 218 mg/dCWnlb14 - 100 mg/dLBON [facility] CENTERArterial Blood Gas, POCon 10-51-0709Zevmf TestNOT APPLICABLERIVERSIDE DOCTORS' HOSPITAL WILLIAMSBURGFIO230.0BON [facility] MEDICAL CENTERHCO3 (Bld) [Moles/Vol]24.2 mmol/L21.0 - 28.0 mmol/LBON [facility]ENTERModePRVCBON [facility]ICAL CENTERO2 Device/Flow/%Adult VentilatorBON [facility] MEDICAL CENTEROxygen saturation in Blood99 %High94.0 - 98.0 %[facility] WILLIAMSBURGC hRI769.7BON [facility]C pH7.439BON [facility] DI0683.9HighRIVERSIDE DOCTORS' HOSPITAL WILLIAMSBURGPositive Base Excess, [id number] [facility]ENTERSample SiteArterial LineRIVERSIDE DOCTORS' HOSPITAL WILLIAMSBURGBasic Metabolic Panel w/ Reflex to MGon 79-73-9182Bzrkr gap [Moles/Vol]9 mmol/L9 - 17 mmol/LBON [facility] CENTERCalcium [Mass/Vol]8.0 mg/dLLow8.6 - 10.4 mg/dLBON [facility] CENTERChloride [Moles/Vol]106 mmol/L98 - 107 mmol/LBON [facility] CENTERCO2 [Moles/Vol]22 mmol/L20 - 31 mmol/LBON [facility] Creatinine [Mass/Vol]0.67 mg/dL0.50 - 0.90 mg/dLBON [facility] CENTERGFR >60>60 mL/minCARILION [facility]WALL [facility]PITAL HEALTHGFR Non->60 >60 mL/minCARILION [facility]ONEWALL [facility] HEALTHGFR/1.73 sq M.predicted MDRD (S/P/Bld) [Vol rate/Area][facility] WILLIAMSBURGGlucose [Mass/Vol]247 mg/lTKwbc61 - 99 mg/dL BON [facility] CENTERInterpretation and review of laboratory resultsAbnormal [facility] LIMAPotassium [Moles/Vol]3.3 mmol/LLow3.7 - 5.3 mmol/LBON [facility] LIMASodium [Moles/Vol]137 mmol/L135 - 144 mmol/LBON [facility]OU[facility]ILSON [facility]ORIAL HOSPITALUrea nitrogen (BldV) [Mass/Vol]15 mg/dL6 - 20 mg/dLBON [facility] BURLINGTONCBC with Auto Differentialon 50-40-5090Jmmdkifx Eos #0.15B[facility] HOSPITALAbsolute Immature Granulocyte0.26B[facility]OSPITALAbsolute Lymph #1.97B[facility]OSPITALAbsolute Thomas #0.99B[facility] HOSPITALBasophils (Bld) [#/Vol]0.04 10*3/uLBON [facility] Basophils/100 WBC (Bld)0 %0 - 2 %[facility] WILLIAMSBURGEosinophils/100 WBC (Bld)1 %1 - 4 %[facility] WILLIAMSBURGHematocrit (Bld) [Volume fraction]23.5 % Low36.3 - 47.1 %[facility] WILLIAMSBURGHemoglobin (Bld) [Mass/Vol]8.0 g/dLLow 11.9 - 15.1 g/dLBON [facility] LIMAImmature granulocytes/100 WBC (Bld)2 % Aktl9NOTRIVERSIDE DOCTORS' HOSPITAL WILLIAMSBURGInterpretation and review of laboratory results AbnormalRIVERSIDE DOCTORS' HOSPITAL WILLIAMSBURGLymphocytes/100 WBC (Bld)16 %Low24 - 43 %[facility]OSPITALH (RBC) [Entitic mass]32.0 pg25.2 - 33.5 pgBON [facility]OSPITALHC (RBC) [Mass/Vol]34.0 g/dL28.4 - 34.8 g/dLBON [facility] HEALTHMCV (RBC) [Entitic vol]94.0 fL82.6 - 102.9 fLRIVERSIDE DOCTORS' HOSPITAL WILLIAMSBURG Monocytes/100 WBC (Bld)8 %3 - 12 %[facility] HEALTHNRBC Automated0.00.0 per 100 WBCBON [facility] HEALTHPlatelet distribution width (Bld) [Ratio]18.5 %High11.8 - 14.4 %BON SECSA[facility] HEALTHPlatelet mean volume (Bld) [Entitic vol]8.4 fL8.1 - 13.5 fLBON SECSAINT FRANCIS SPECIALTY HOSPITAL HEALTHPlatelets (Bld) [#/Vol]398 10*3/uLBON [facility] LIMARBC (Bld) [#/Vol]2.50 10*6/uLLow3.95 - 5.11 m/uL R[facility] DOCTORS' [facility]OSPITAL WILLIAMSBURGRBC (Bld) [#/Vol]ANISOCYTOSIS PRESENTBON [facility] CENTERSeg Humsxqlydvw71 %High36 - 65 %BON [facility]ENTERSegs Absolute8.88 HighBON [facility]OS[facility] HEALTHWBC (Bld) [#/Vol]12.3 10*3/uLHighBON SIOUX FALLS SURGICAL CENTERMagnesiumon 75-97-8764Solzcfoji [Mass/Vol]1.7 mg/dL1.6 - 2.6 mg/dLBON [facility]ENTERNo Panel Informationon 27-87-5927Siicopowsukhsc and review of laboratory resultsAbnormal BON [facility] CENTERPOC Glucose Fingerstickon 44-31-2172Lsmiqeg [Mass/Vol]194 mg/eHSvsi96 - 105 mg/dLBON [facility] Interpretation and review of laboratory resultsAbnormalBON [facility] BON [facility] CENTERGlucose [Mass/Vol]112 mg/qVWugb24 - 105 mg/dLBON [facility] HEALTHInterpretation and review of laboratory resultsAbnormalBON [facility] HEALTHGlucose [Mass/Vol]172 mg/rDUbbk00 - 105 mg/dLBON [facility] HEALTHInterpretation and review of laboratory results AbnormalBON SECCHILDREN'S HOS[facility]ITAL [facility] W[facility]– MILWAUKEEGlucose [Mass/Vol]251 mg/oBWtww53 - 105 mg/dLBON [facility] CENTERInterpretation and review of laboratory resultsAbnormRiverside Health System Glucose [Mass/Vol]240 mg/uYYohp95 - 105 mg/dLBON [facility] Interpretation and review of laboratory resultsAbnormInova Women's Hospital BON [facility] CENTERPOCT Glucoseon 15-53-2073Faqjcmc [Mass/Vol]286 mg/dLHigh 74 - 100 mg/dLBON [facility] CENTERBasic Metabolic Panel w/ Reflex to MGon 43-64-0529Xjege gap [Moles/Vol]13 mmol/L9 - 17 mmol/LBON [facility] Calcium [Mass/Vol]7.9 mg/dLLow8.6 - 10.4 mg/dLBON [facility] CENTERChloride [Moles/Vol]105 mmol/L98 - 107 mmol/LBON [facility] CENTERCO2 [Moles/Vol]20 mmol/L20 - 31 mmol/LBON [facility] CENTERCreatinine [Mass/Vol]0.72 mg/dL0.50 - 0.90 mg/dLBON [facility] CENTERGFR >60>60 mL/minRIVERSIDE DOCTORS' HOSPITAL WILLIAMSBURGGFR Non->60>60 mL/minRIVERSIDE DOCTORS' HOS[facility] WILLIAMSBURG GFR/1.73 sq M.predicted MDRD (S/P/Bld) [Vol rate/Area][facility] Glucose [Mass/Vol]212 mg/nVDkue37 - 99 mg/dLBON [facility] Interpretation and review of laboratory resultsAbnormInova Women's Hospital Potassium [Moles/Vol]3.2 mmol/LLow3.7 - 5.3 mmol/LBON [facility] CENTERSodium [Moles/Vol]138 mmol/L135 - 144 mmol/LBON [facility]ICAL CENTERUrea nitrogen (BldV) [Mass/Vol]15 mg/dL6 - 20 mg/dLBON SIOUX FALLS SURGICAL CENTERCBC with Auto Differentialon 29-03-7909Bnwmshag Eos #0.14BON [facility] CENTERAbsolute Immature Granulocyte0.56HighBON [facility]ICAL CENTERAbsolute Lymph #2.66BON SECK[facility] LIMAAbsolute Thomas #0.70[facility] Basophils (Bld) [#/Vol]0.00 10*3/uLBON [facility]ICAL CENTERBasophils/100 WBC (Bld)0 %0 - 2 %[facility] CENTEREosinophils/100 WBC (Bld)1 %1 - 4 %[facility] WILLIAMSBURGHematocrit (Bld) [Volume fraction]27.1 %Low36.3 - 47.1 %[facility]IAMSBURGHemoglobin (Bld) [Mass/Vol]9.1 g/dLLow11.9 - 15.1 g/dLBON [facility] CENTERImmature granulocytes/100 WBC (Bld)4 %Kplg7MNSRIVERSIDE DOCTORS' HOSPITAL WILLIAMSBURGInterpretation and review of laboratory resultsAbnormalBON [facility] PARMA MEDICAL CENTERLymphocytes/100 WBC (Bld)19 %Low24 - 44 %[facility]ITALH (RBC) [Entitic mass]31.7 pg25.2 - 33.5 pgBON [facility]OSPITALHC (RBC) [Mass/Vol]33.6 g/dL28.4 - 34.8 g/dLBON SECPREMIER HE[facility] UPP[facility] MEDICAL CENTERV (RBC) [Entitic vol]94.4 fL82.6 - 102.9 fLRIVERSIDE DOCTORS' HOSPITAL WILLIAMSBURGMonocytes/100 WBC (Bld)5 %1 - 7 %[facility] WILLIAMSBURGMorphology Malachi (Bld) [Interp]ANISOCYTOSIS PRESENTRIVERSIDE DOCTORS' HOSPITAL WILLIAMSBURGNRBC Automated0.00.0 per 100 WBCRIVERSIDE DOCTORS' HOSPITAL WILLIAMSBURG Platelet distribution width (Bld) [Ratio]18.8 %High11.8 - 14.4 %[facility] WILLIAMSBURGPlatelet mean volume (Bld) [Entitic vol]8.7 fL8.1 - 13.5 fLRIVERSIDE DOCTORS' HOSPITAL WILLIAMSBURGPlatelets (Bld) [#/Vol]490 10*3/uLHighBON [facility] MEDICAL CENTERRBC (Bld) [#/Vol]2.87 10*6/uLLow3.95 - 5.11 m/uLBON [facility] Seg Iufenrkaqwr85 %High36 - 66 %BON [facility]ENTERSegs Absolute9.94HighBON [facility]MA MEDICAL CENTERWBC (Bld) [#/Vol]14.0 10*3/uLHighRIVERSIDE DOCTORS' HOSP[facility] WILL[facility]SBURG BON [facility]ICAL CENTERMagnesiumon 80-32-1557Yciggxlia [Mass/Vol]1.7 mg/dL1.6 - 2.6 mg/dLBON SIOUX FALLS SURGICAL CENTERPOC Glucose Fingerstickon 89-07-9715Loxdfxy [Mass/Vol]124 mg/bVGczu08 - 105 mg/dLBON [facility] CENTERInterpretation and review of laboratory resultsAbnormalRUSSELL COUNTY MEDICAL CENTERGlucose [Mass/Vol]201 mg/uAIhzp00 - 105 mg/dLBON [facility] HEALTHInterpretation and review of laboratory results AbnormalBON SIOUX FALLS SURGICAL CENTERGlucose [Mass/Vol]264 mg/mXIquf63 - 105 mg/dLBON [facility] CENTERInterpretation and review of laboratory resultsAbnormRiverside Health System Glucose [Mass/Vol]184 mg/sQIijm37 - 105 mg/dLBON [facility] Interpretation and review of laboratory resultsAbnormIn[facility] HEALTHGlucose [Mass/Vol]241 mg/dFYddi34 - 105 mg/dLBON [facility] CENTERInterpretation and review of laboratory resultsAbnormRiverside Health SystemTriglycerideon [id number] and review of laboratory resultsAbnormInova Women's HospitalTriglyceride [Mass/Vol]164 mg/dLHigh<150B[facility] CENTERBasic Metabolic Panel w/ Reflex to MGon [id number] gap [Moles/Vol]14 mmol/L9 - 17 mmol/LBON [facility] HEALTHCalcium [Mass/Vol]8.0 mg/dLLow8.6 - 10.4 mg/dL [facility] WILLIAMSBURGChloride [Moles/Vol]106 mmol/L98 - 107 mmol/LBON [facility] HEALTHCO2 [Moles/Vol]20 mmol/L20 - 31 mmol/LBON [facility] Creatinine [Mass/Vol]0.78 mg/dL0.50 - 0.90 mg/dLB[facility]Y HEALTHGFR >60>60 mL/minBON [facility] HEALTHGFR Non->60 >60 mL/minBON [facility]ITALY HEALTHGFR/1.73 sq M.predicted MDRD (S/P/Bld) [Vol rate/Area][facility] HEALTHGlucose [Mass/Vol]209 mg/lHMbep72 - 99 mg/dL [facility] HEALTHInterpretation and review of laboratory resultsAbnormal [facility] HEALTHPotassium [Moles/Vol]3.3 mmol/LLow3.7 - 5.3 mmol/LB[facility] HEALTHSodium [Moles/Vol]140 mmol/L135 - 144 mmol/LBON [facility] HEALTHUrea nitrogen (BldV) [Mass/Vol]14 mg/dL6 - 20 mg/dLBON SEC[facility]PITALB[facility]Y [facility] CENTERCBC with Auto Differentialon 02-82-5472Cbgkddka Eos #0.28[facility] HEALTHAbsolute Immature Granulocyte0.98HighBON [facility] HEALTHAbsolute Lymph #2.94[facility] HEALTHAbsolute Thomas # 0.98HighORO VALLEY [facility]ITAL [facility]ITAL[facility] HEALTHBasophils (Bld) [#/Vol]0.00 10*3/uLBON [facility]ITALY HEALTHBasophils/100 WBC (Bld)0 %0 - 2 %[facility] Eosinophils/100 WBC (Bld)2 %1 - 4 %[facility] HEALTHHematocrit (Bld) [Volume fraction]27.4 %Low36.3 - 47.1 %[facility] HEALTHHemoglobin (Bld) [Mass/Vol]9.5 g/dLLow11.9 - 15.1 g/dLBON [facility]ITALY [facility] CENTERImmature granulocytes/100 WBC (Bld)7 %Icjo4VHT [facility]Y HEALTHInterpretation and review of laboratory resultsAbnormalBON [facility]ITALY [facility] CENTERLymphocytes/100 WBC (Bld)21 %Low24 - 44 %[facility]ITALH (RBC) [Entitic mass]31.8 pg25.2 - 33.5 pgWELLMONT LON[facility]OME PINE [facility]. [facility]IEW HOSPITALHC (RBC) [Mass/Vol]34.7 g/dL28.4 - 34.8 g/dL [facility]ITALV (RBC) [Entitic vol]91.6 fL82.6 - 102.9 fLRIVERSIDE DOCTORS' HOSPITAL WILLIAMSBURGMonocytes/100 WBC (Bld)7 %1 - 7 %R[facility] WILLIAMSBURGMorphology Malachi (Bld) [Interp]ANISOCYTOSIS PRESENTRIVERSIDE DOCTORS' HOSPITAL WILLIAMSBURGNRBC Automated0.0 0.0 per 100 WBCRIVERSIDE DOCTORS' HOSPITAL WILLIAMSBURGPlatelet distribution width (Bld) [Ratio] 18.4 %High11.8 - 14.4 %[facility] WILLIAMSBURGPlatelet mean volume (Bld) [Entitic vol]8.7 fL8.1 - 13.5 fLCARILION STONEWALL JACKSON [facility]PITAL HEALTHPlatelets (Bld) [#/Vol] 502 10*3/uLHighBON [facility]MA MEDICAL CENTERRBC (Bld) [#/Vol]2.99 10*6/uLLow3.95 - 5.11 m/uLRIVERSIDE DOCTORS' HOSPITAL WILLIAMSBURGSeg Evvxsutnkyv21 %36 - 66 %[facility] WILLIAMSBURGSegs Absolute8.82HighRIVERSIDE DOCTORS' HOSPITAL WILLIAMSBURGWBC (Bld) [#/Vol]14.0 10*3/uL HighRUSSELL COUNTY MEDICAL CENTERHemoglobin and Hematocriton 58-93-8420Lfookzonbn (Bld) [Volume fraction]27.4 %Low36.3 - 47.1 %[facility] WILLIAMSBURGHemoglobin (Bld) [Mass/Vol]9.2 g/dLLow11.9 - 15.1 g/dLBON [facility] MEDICAL CENTERInterpretation and review of laboratory resultsAbnormalBON [facility] HEALTHMagnesiumon 51-25-6039Ceghgzski [Mass/Vol] 1.6 mg/dL1.6 - 2.6 mg/dLBON [facility] CENTERPO Glucose Fingerstickon 34-56-8234Jwzoxnw [Mass/Vol]134 mg/bBIdxe72 - 105 mg/dLBON [facility] HEALTHInterpretation and review of laboratory resultsAbnormalBON SECCHILDREN'[facility] H[facility] MILWAUKEEGlucose [Mass/Vol]230 mg/aDAihi15 - 105 mg/dLBON [facility] HEALTHInterpretation and review of laboratory results AbnormalBON [facility]ALL[facility] SURGICAL CENTERGlucose [Mass/Vol]214 mg/tKYlfg66 - 105 mg/dLBON [facility] CENTERInterpretation and review of laboratory resultsAbnormalBON [facility] Glucose [Mass/Vol]197 mg/rCAuyx47 - 105 mg/dLBON [facility] Interpretation and review of laboratory resultsAbnormalRIVERSIDE DO[facility] BON [facility] MEDICAL CENTERGlucose [Mass/Vol]164 mg/vMUaab02 - 105 mg/dLBON [facility] CENTERInterpretation and review of laboratory resultsAbnormalRUSSELL COUNTY MEDICAL CENTERArterial Blood Gas, POCon 65-48-8656Ivmkv TestNOT APPLICABLERIVERSIDE DOCTORS' HOSPITAL WILLIAMSBURGFIO230.0BON [facility] MEDICAL CENTERHCO3 (Bld) [Moles/Vol]24.4 mmol/L21.0 - 28.0 mmol/LBON [facility] Interpretation and review of laboratory resultsAbnormInova Women's Hospital ModePRVCBON [facility] PARMA MEDICAL CENTERO2 Device/Flow/%Adult VentilatorRIVERSIDE DOCTORS' HOSPITAL WILLIAMSBURGOxygen saturation in Blood98 %94.0 - 98.0 %[facility] POC aBM681.3LowBON [facility] PARMA MEDICAL CENTERPOC pH7.473HighRIVERSIDE DOCTORS' [facility]OS[facility] POC AF2820.7BON [facility] CENTERPositive Base Excess, [id number] [facility] CENTERSample SiteArterial LineRUSSELL COUNTY MEDICAL CENTER Basic Metabolic Panel w/ Reflex to MGon 92-41-0929Iivzt gap [Moles/Vol]10 mmol/L 9 - 17 mmol/LBON [facility] MEDICAL CENTERCalcium [Mass/Vol]8.0 mg/dLLow8.6 - 10.4 mg/dLBON [facility] HEALTHChloride [Moles/Vol]105 mmol/L98 - 107 mmol/LBON [facility] HEALTHCO2 [Moles/Vol]22 mmol/L20 - 31 mmol/LB[facility] HEALTHCreatinine [Mass/Vol]0.7 mg/dL0.50 - 0.90 mg/dLBON [facility] HEALTHGFR >60>60 mL/minBON [facility] HEALTHGFR Non- >60>60 mL/minBON [facility]CY HEALTHGFR/1.73 sq M.predicted MDRD (S/P/Bld) [Vol rate/Area][facility] HEALTHGlucose [Mass/Vol]276 mg/nBAclz30 - 99 mg/dL [facility] HEALTHInterpretation and review of laboratory resultsAbnormal [facility] HEALTHPotassium [Moles/Vol]3.8 mmol/L3.7 - 5.3 mmol/LBON [facility] HEALTHSodium [Moles/Vol]137 mmol/L135 - 144 mmol/LBON [facility] HEALTHUrea nitrogen (BldV) [Mass/Vol]14 mg/dL6 - 20 mg/dLBON [facility] MERCY HEALTHBON [facility] HEALTHCBC with Auto Differentialon 86-77-5337Bsndbyzs Eos #0.00[facility] HEALTHAbsolute Immature Granulocyte0.71HighBON [facility] HEALTHAbsolute Lymph #3.69[facility] HEALTHAbsolute Thomas # 0.57[facility] HEALTHBasophils (Bld) [#/Vol]0.00 10*3/uLBON [facility]RS [facility] HEALTHBasophils/100 WBC (Bld)0 %0 - 2 %[facility] HEALTHEosinophils/100 WBC (Bld)0 %Low1 - 4 %[facility] HEALTHHematocrit (Bld) [Volume fraction] 27.0 %Low36.3 - 47.1 %[facility] HEALTHHemoglobin (Bld) [Mass/Vol]9.3 g/dLLow11.9 - 15.1 g/dLBON [facility] HEALTHImmature granulocytes/100 WBC (Bld)5 %Sgbn5CRH [facility] HEALTHInterpretation and review of laboratory resultsAbnormalRIVERSIDE DOCTORS' HOSPITAL WILLIAMSBURGLymphocytes/100 WBC (Bld)26 %24 - 44 %[facility]ITALH (RBC) [Entitic mass]31.5 pg25.2 - 33.5 pgWELLMONT LONESOME PINE [facility]. [facility]IEW HOSPITALHC (RBC) [Mass/Vol]34.4 g/dL28.4 - 34.8 g/dLBON [facility] HOSPITALV (RBC) [Entitic vol]91.5 fL82.6 - 102.9 fLRIVERSIDE DOCTORS' HOSPITAL WILLIAMSBURG Monocytes/100 WBC (Bld)4 %1 - 7 %[facility] WILLIAMSBURGMorphology Malachi (Bld) [Interp]ANISOCYTOSIS PRESENTRIVERSIDE DOCTORS' HOSPITAL WILLIAMSBURGNRBC Automated0.00.0 per 100 WBCRIVERSIDE DOCTORS' HOSPITAL WILLIAMSBURGPlatelet distribution width (Bld) [Ratio]17.7 %High 11.8 - 14.4 %[facility] WILLIAMSBURGPlatelet mean volume (Bld) [Entitic vol]8.8 fL8.1 - 13.5 fLRIVERSIDE DOCTORS' HOSPITAL WILLIAMSBURGPlatelets (Bld) [#/Vol]491 10*3/uLHighRIVERSIDE DOCTORS' HOSPITAL WILLIAMSBURGRBC (Bld) [#/Vol]2.95 10*6/uLLow3.95 - 5.11 m/uLRIVERSIDE DOCTORS' HOSPITAL WILLIAMSBURGSeg Szkqjppcbeh29 %36 - 66 %[facility] WILLIAMSBURGSegs Absolute 9.23HighRIVERSIDE DOCTORS' HOSPITAL WILLIAMSBURGWBC (Bld) [#/Vol]14.2 10*3/uLHighRUSSELL COUNTY MEDICAL CENTERHemoglobin and Hematocriton 07-30-2021 Hematocrit (Bld) [Volume fraction]29.5 %Low36.3 - 47.1 %[facility] Hemoglobin (Bld) [Mass/Vol]9.6 g/dLLow11.9 - 15.1 g/dLBON [facility] Interpretation and review of laboratory resultsAbnormalSENTARA MARTHA JEFFERSON HOSPITALPOC Glucose Fingerstickon 20-67-9032Odkmiey [Mass/Vol] 106 mg/zIGimi89 - 105 mg/dLBON [facility] HEALTHInterpretation and review of laboratory resultsAbnormalBON SECSA[facility] HEALTHCARIL[facility] HEALTH Glucose [Mass/Vol]231 mg/pIDjqc37 - 105 mg/dLBON SECSAINT [facility] HEALTH Interpretation and review of laboratory resultsAbnormalBON SECSA[facility] HEALTH BON [facility] HEALTHTYPE AND SCREENon 67-67-2114PTN/RhPositiveBON SECJ[facility] HEALTHArm Band NumberBE [id number] [facility] HEALTHBlood Bank Blood Product Expiration [id number] [facility] HEALTHBlood Bank ISBT Product Blood [id number] [facility] HEALTHBlood Bank Unit Type and Rh PositiveBON SECSAINT [facility] HEALTHBlood product type Nom (BPU)Leukocyte Reduced Red CellBON [facility] GrovoBlood product unit ID (Dose) [#][id number] SECBumpTop [facility] HOSPITALCrossmatch ResultCOMPATIBLEBON [facility] CENTERDispense StatusTRANSFUSEDBON [facility] HEALTHExpiration Date08/01/2021,2359BON [facility] MEDICAL CENTERProduct Code Blood [id number] [facility] Transfusion StatusOK TO TRANSFUSEBON [facility] MEDICAL CENTERBumpTop MERCY HOSPITALThreadbox [facility] CENTERUnit [id number] SECBumpTop [facility] HOSPITALUnit Issue Date/[id number] [facility] HEALTHArterial Blood Gas, POCon 39-25-4452Pcllp TestNOT APPLICABLE [facility]PITALBumpTop [facility] PTLNLCHDK169.0BON [facility] MEDICAL CENTERBumpTop REG[facility] HEALTHHCO3 (Bld) [Moles/Vol] 23.0 mmol/L21.0 - 28.0 mmol/LBON [facility] HEALTHInterpretation and review of laboratory resultsAbnormalBON [facility] HEALTHModePRVCBON [facility] HEALTHNegative Base Excess, [id number] SECSAINT [facility] HEALTHO2 Device/Flow/%Adult VentilatorBON SECSAINT [facility]ANC[facility] HEALTHOxygen saturation in Blood99 %High94.0 - 98.0 %BON SECSTATE MENTAL HEALTH FACILITYThreadbox [facility]ENTERPOC yBK843.1BON SECSA[facility] HEALTHPOC pH7.425BON SECSA[facility] HEALTHPOC CB0281.9HighBON SECSA[facility] HEALTHSample SiteArterial LineBON SECHE[facility] HEALTHBasic Metabolic Panel w/ Reflex to MGon 44-86-2156Tnkps gap [Moles/Vol]9 mmol/L9 - 17 mmol/LBON [facility]ITALY HEALTHCalcium [Mass/Vol]7.8 mg/dLLow8.6 - 10.4 mg/dLBON [facility] HEALTHChloride [Moles/Vol]106 mmol/L98 - 107 mmol/LBON [facility]ITALY HEALTHCO2 [Moles/Vol]21 mmol/L20 - 31 mmol/LB[facility]ITALY HEALTHCreatinine [Mass/Vol] 0.71 mg/dL0.50 - 0.90 mg/dLBON [facility]ITALY HEALTHGFR >60>60 mL/minBON [facility]ITALY HEALTHGFR Non->60>60 mL/minOR[facility] HOSPITALGFR/1.73 sq M.predicted MDRD (S/P/Bld) [Vol rate/Area]BON SEC[facility] HEALTHGlucose [Mass/Vol]246 mg/pMMnrj66 - 99 mg/dLBON [facility] HEALTH Interpretation and review of laboratory resultsAbnormalBON SECSA[facility] HEALTH Potassium [Moles/Vol]3.6 mmol/LLow3.7 - 5.3 mmol/LBON [facility]RS [facility] HOSPITALY [facility] CENTERSodium [Moles/Vol]136 mmol/L135 - 144 mmol/LBON SECKINDRED HOSPITAL LIMAUrea nitrogen (BldV) [Mass/Vol]11 mg/dL6 - 20 mg/dLBON SECOURS W[facility] HOSPITALBON SECKINDRED HOSPITAL LIMACBC with Auto Differentialon 06-33-9316Yiyrmzzj Eos #0.00[facility] HEALTHAbsolute Immature Granulocyte0.43HighBON [facility] HEALTHAbsolute Lymph #3.13[facility] HEALTHAbsolute Thomas #0.32[facility]ALTH Basophils (Bld) [#/Vol]0.00 10*3/uLBON [facility]RS [facility] HEALTHBasophils/100 WBC (Bld)0 %0 - 2 %[facility] HEALTHEosinophils/100 WBC (Bld)0 %Low1 - 4 %[facility]ITALY HEALTHHematocrit (Bld) [Volume fraction]22.5 %Low36.3 - 47.1 %[facility] WILLIAMSBURGHemoglobin (Bld) [Mass/Vol]7.4 g/dLLow11.9 - 15.1 g/dLBON [facility] CENTERImmature granulocytes/100 WBC (Bld)4 %Etiy7CWNRIVERSIDE DOCTORS' HOSPITAL WILLIAMSBURGInterpretation and review of laboratory resultsAbnormalRIVERSIDE DOCTORS' HOSPITAL WILLIAMSBURGLymphocytes/100 WBC (Bld)29 %24 - 44 %[facility]OSPITALH (RBC) [Entitic mass]30.7 pg25.2 - 33.5 pgWELLMONT LONESOME PINE MT. VIEW HOSPITALHC (RBC) [Mass/Vol] 32.9 g/dL28.4 - 34.8 g/dLBON [facility] HOSPITALV (RBC) [Entitic vol]93.4 fL 82.6 - 102.9 fLRIVERSIDE DOCTORS' HOSPITAL WILLIAMSBURGMonocytes/100 WBC (Bld)3 %1 - 7 %[facility] WILLIAMSBURGMorphology Malachi (Bld) [Interp]ANISOCYTOSIS PRESENTRIVERSIDE DOCTORS' HOSPITAL WILLIAMSBURGNRBC Automated0.00.0 per 100 WBCRIVERSIDE DOCTORS' HOSPITAL WILLIAMSBURGPlatelet distribution width (Bld) [Ratio]19.6 %High11.8 - 14.4 %[facility] Platelet mean volume (Bld) [Entitic vol]8.9 fL8.1 - 13.5 fLRIVERSIDE DOCTORS' HOSPITAL WILLIAMSBURGPlatelets (Bld) [#/Vol]500 10*3/uLHighRIVERSIDE DOCTORS' HOSPITAL WILLIAMSBURGRBC (Bld) [#/Vol]2.41 10*6/uLLow3.95 - 5.11 m/uLRIVERSIDE DOCTORS' HOSPITAL WILLIAMSBURGSeg Hcimmzhvoxl57 %36 - 66 %[facility] WILLIAMSBURGSegs Absolute6.92RIVERSIDE DOCTORS' HOSPITAL WILLIAMSBURGWBC (Bld) [#/Vol]10.8 10*3/uLRUSSELL COUNTY [facility]ICAL [facility]ENTER Hemoglobin and Hematocriton 50-48-8915Gzrzrhqrqg (Bld) [Volume fraction]29.9 % Low36.3 - 47.1 %[facility] WILLIAMSBURGHemoglobin (Bld) [Mass/Vol]10.1 g/dLLow 11.9 - 15.1 g/dLBON [facility] MEDICAL CENTERInterpretation and review of laboratory resultsAbnormalRUSSELL COUNTY MEDICAL CENTERHematocrit (Bld) [Volume fraction]24.9 %Low36.3 - 47.1 %[facility] WILLIAMSBURGHemoglobin (Bld) [Mass/Vol]8.4 g/dLLow11.9 - 15.1 g/dLBON [facility] CENTERInterpretation and review of laboratory resultsAbnormalCEN[facility] Glucose Fingerstickon 42-67-8317Dunzxrm [Mass/Vol]169 mg/gUDdpj75 - 105 mg/dLBON [facility] MED[facility] CENTERInterpretation and review of laboratory results AbnormalBON [facility]ALL[facility] CENTERGlucose [Mass/Vol]296 mg/cEZwqd47 - 105 mg/dLBON [facility] CENTERInterpretation and review of laboratory resultsAbnormalRUSSELL [facility] Glucose [Mass/Vol]276 mg/oAUkfh01 - 105 mg/dLBON [facility] Interpretation and review of laboratory resultsAbnormInova Women's Hospital BON [facility] CENTERGlucose [Mass/Vol]217 mg/hDUoqq45 - 105 mg/dLBON [facility] CENTERInterpretation and review of laboratory resultsAbnormRiverside Health SystemArterial Blood Gas, POCon 07-90-7363FYY897.0 [facility] WILLIAMSBURGHCO3 (Bld) [Moles/Vol]22.0 mmol/L21.0 - 28.0 mmol/LBON [facility] CENTERModePRVCBON [facility]MA MEDICAL CENTERNegative Base Excess, Art2 [facility] WILLIAMSBURGO2 Device/Flow/%Adult VentilatorRIVERSIDE DOCTORS' [facility]OS[facility] WILL[facility]SB[facility] Oxygen saturation in Blood98 %94.0 - 98.0 %[facility] vZE024.9 LowBON [facility] pH7.460HighINOVA HEALTH SYSTEM QN4683.0 [facility] WILLIAMSBURGSample SiteArterial LineBON [facility] MEDICAL CENTERBasic Metabolic Panel w/ Reflex to MGon 62-62-0098Ectlz gap [Moles/Vol]9 mmol/L9 - 17 mmol/LBON [facility] HEALTHCalcium [Mass/Vol]8.1 mg/dLLow8.6 - 10.4 mg/dLBON [facility] HEALTHChloride [Moles/Vol]108 mmol/LHigh98 - 107 mmol/LBON [facility] HEALTHCO2 [Moles/Vol]20 mmol/L20 - 31 mmol/LB[facility] Creatinine [Mass/Vol]0.73 mg/dL0.50 - 0.90 mg/dLBON [facility] HEALTHGFR >60>60 mL/minBON [facility] HEALTHGFR Non->60 >60 mL/minBON [facility] HEALTHGFR/1.73 sq M.predicted MDRD (S/P/Bld) [Vol rate/Area][facility] HEALTHGlucose [Mass/Vol]195 mg/hQYjxl08 - 99 mg/dL [facility] HEALTHInterpretation and review of laboratory resultsAbnormal [facility] HEALTHPotassium [Moles/Vol]4.2 mmol/L3.7 - 5.3 mmol/LBON [facility] HEALTHSodium [Moles/Vol]137 mmol/L135 - 144 mmol/LBON [facility] HEALTHUrea nitrogen (BldV) [Mass/Vol]8 mg/dL6 - 20 mg/dLBON [facility] MERCY HEALTHBON [facility] HEALTHCBC with Auto Differentialon 35-41-8200Izzxogah Eos #0.00B[facility] HEALTHAbsolute Immature Granulocyte0.64HighBON [facility] HEALTHAbsolute Lymph #2.69[facility] HEALTHAbsolute Thomas # 0.00LowBON [facility]CY HEALTHBasophils (Bld) [#/Vol]0.00 10*3/uLBON [facility] HEALTHBasophils/100 WBC (Bld)0 %0 - 2 %[facility] Eosinophils/100 WBC (Bld)0 %Low1 - 4 %[facility] HEALTHHematocrit (Bld) [Volume fraction]24.4 %Low36.3 - 47.1 %[facility] HEALTHHemoglobin (Bld) [Mass/Vol]7.9 g/dLLow11.9 - 15.1 g/dLBON [facility] MEDICAL CENTERImmature granulocytes/100 WBC (Bld)5 %Zted3MFPRIVERSIDE DOCTORS' HOSPITAL WILLIAMSBURGInterpretation and review of laboratory resultsAbnormalBON [facility] MEDICAL CENTERLymphocytes/100 WBC (Bld)21 %Low24 - 44 %BON [facility] HOSPITALH (RBC) [Entitic mass]30.5 pg25.2 - 33.5 pgBON [facility]FIELD HOSPITALHC (RBC) [Mass/Vol]32.4 g/dL28.4 - 34.8 g/dL BON [facility] HOSPITALV (RBC) [Entitic vol]94.2 fL82.6 - 102.9 fLRIVERSIDE DOCTORS' HOSPITAL WILLIAMSBURGMonocytes/100 WBC (Bld)0 %Low1 - 7 %[facility] Morphology Malachi (Bld) [Interp]ANISOCYTOSIS PRESENTBON [facility] MEDICAL CENTERNRBC Automated0.00.0 per 100 WBCRIVERSIDE DOCTORS' HOSPITAL WILLIAMSBURGPlatelet distribution width (Bld) [Ratio]19.0 %High11.8 - 14.4 %BON [facility] HEALTHPlatelet mean volume (Bld) [Entitic vol]8.8 fL8.1 - 13.5 fLCARILION STONEWALL JACKSON HOSPITAL HEALTHPlatelets (Bld) [#/Vol]490 10*3/uLHighBON [facility] HEALTHRBC (Bld) [#/Vol]2.59 10*6/uLLow 3.95 - 5.11 m/uLBON [facility]MA MEDICAL CENTERSeg Hgtckzmcleo09 %High36 - 66 %BON [facility] CENTERSegs Absolute9.47HighRIVERSIDE DOCTORS' HOSPITAL WILLIAMSBURGWBC (Bld) [#/Vol]12.8 10*3/uLHighBON [facility] SECSA[facility] HEALTHCalcium, Ionizedon 19-89-4276Gbuevcw [Moles/Vol]1.15 mmol/L1.13 - 1.33 mmol/LBON [facility]ALLS SURGICAL CENTERHemoglobin and Hematocriton 07-28-2021 Hematocrit (Bld) [Volume fraction]23.9 %Low36.3 - 47.1 %[facility] Hemoglobin (Bld) [Mass/Vol]8.2 g/dLLow11.9 - 15.1 g/dLBON [facility] Interpretation and review of laboratory resultsAbnormBon Secours Mary Immaculate HospitalNo Panel Informationon 08-96-7236Bxlpadoufpxunf and review of laboratory resultsAbnormVCU Medical Center Glucose Fingerstickon 90-17-8896Bzlbapw [Mass/Vol]183 mg/nIWeom51 - 105 mg/dLBON [facility] CENTERInterpretation and review of laboratory results AbnormalBON [facility]ALLS SURGICAL CENTERGlucose [Mass/Vol]187 mg/tOWvky97 - 105 mg/dLBON [facility] CENTERInterpretation and review of laboratory resultsAbnormRiverside Health System Glucose [Mass/Vol]163 mg/iVWhvm99 - 105 mg/dLBON [facility] Interpretation and review of laboratory resultsAbnormBon Secours Mary Immaculate HospitalGlucose [Mass/Vol]182 mg/dUZgfh13 - 105 mg/dLBON [facility] CENTERInterpretation and review of laboratory resultsAbnormRiverside Health SystemPOCT Glucoseon 78-74-5683Soerxdh [Mass/Vol] 177 mg/nZCsbb41 - 100 mg/dLBON [facility] PARMA MEDICAL CENTERCBC with Auto Differentialon 68-69-8924Ujbfnybkj (Bld) [#/Vol]0.00 10*3/uLRIVERSIDE DOCTORS' HOSPITAL WILLIAMSBURG Basophils/100 WBC (Bld)0 %0 - 2 %[facility] WILLIAMSBURGEosinophils/100 WBC (Bld)0 %Low1 - 4 %[facility] WILLIAMSBURGHematocrit (Bld) [Volume fraction]25.3 %Low36.3 - 47.1 %[facility] WILLIAMSBURGHemoglobin (Bld) [Mass/Vol]8.5 g/dLLow 11.9 - 15.1 g/dLBON [facility]MA MEDICAL CENTERLymphocytes/100 WBC (Bld)19 %Low24 - 44 %[facility] WILLIAMSBURGMCH (RBC) [Entitic mass]30.6 pg25.2 - 33.5 pgRIVERSIDE DOCTORS' HOSPITAL WILLIAMSBURGMCV (RBC) [Entitic vol]91.0 fL82.6 - 102.9 fLRIVERSIDE DOCTORS' HOSPITAL WILLIAMSBURGMorphology Malachi (Bld) [Interp]ANISOCYTOSIS PRESENTSENTARA NORTHERN VIRGINIA MEDICAL CENTERC (Bld) [#/Vol]2.78 10*6/uLLow3.95 - 5.11 m/uLBON [facility] Calcium, Ionizedon [id number] [Moles/Vol]1.19 mmol/L1.13 - 1.33 mmol/LBON [facility]ALL[facility] SURGICAL CENTERCulture, Blood 2on 07-27-2021 Bacteria identified Cx Nom (Unsp spec)NO GROWTH 5 DAYSBON [facility] Special RequestsL HAND 20MLRIVERSIDE DOCTORS' HOSPITAL WILLIAMSBURGSpecimen Description.BLOODBON SIOUX FALLS SURGICAL CENTERHemoglobin and Hematocriton [id number] (Bld) [Volume fraction]26.4 %Low36.3 - 47.1 %[facility] WILLIAMSBURGHemoglobin (Bld) [Mass/Vol]9.0 g/dLLow11.9 - 15.1 g/dLBON [facility] MEDICAL CENTERInterpretation and review of laboratory resultsAbnormRiverside Health SystemMagnesiumon [id number] [Mass/Vol] 1.8 mg/dL1.6 - 2.6 mg/dLBON SIOUX FALLS SURGICAL CENTERPO Glucose Fingerstickon [id number] [Mass/Vol]149 mg/hIYkog01 - 105 mg/dLBON [facility] MEDICAL CENTERInterpretation and review of laboratory resultsAbnormalRUSSELL COUNTY MEDICAL CENTERGlucose [Mass/Vol]162 mg/aJJomx07 - 105 mg/dLBON [facility] CENTERInterpretation and review of laboratory results AbnormalBON SIOUX FALLS SURGICAL CENTERGlucose [Mass/Vol]160 mg/cYMhpj38 - 105 mg/dLBON [facility] CENTERInterpretation and review of laboratory resultsAbnormalRUSSELL COUNTY [facility]ENTER Glucose [Mass/Vol]147 mg/xGApmo49 - 105 mg/dLBON [facility] Interpretation and review of laboratory resultsAbnormBon Secours Mary Immaculate HospitalGlucose [Mass/Vol]135 mg/oOEbxp10 - 105 mg/dLBON [facility] CENTERInterpretation and review of laboratory resultsAbnormalRUSSELL COUNTY MEDICAL CENTERGlucose [Mass/Vol]204 mg/aLKxts18 - 105 mg/dLBON [facility] CENTERInterpretation and review of laboratory results AbnormalRUSSELL COUNTY MEDICAL CENTERBasic Metabolic Panel w/ Reflex to MGon [id number] gap [Moles/Vol]14 mmol/L9 - 17 mmol/LBON [facility] CENTERCalcium [Mass/Vol]8.2 mg/dLLow8.6 - 10.4 mg/dLBON [facility] MEDICAL CENTERChloride [Moles/Vol]97 mmol/LLow98 - 107 mmol/LBON [facility] MEDICAL CENTERCO2 [Moles/Vol]30 mmol/L20 - 31 mmol/LBON [facility] CENTERCreatinine [Mass/Vol] 0.92 mg/dLHigh0.50 - 0.90 mg/dLBON [facility] MEDICAL CENTERGFR >60 >60 mL/minRIVERSIDE DOCTORS' HOSPITAL WILLIAMSBURGGFR Non->60>60 mL/minRIVERSIDE DOCTORS' HOSPITAL WILLIAMSBURGGFR/1.73 sq M.predicted MDRD (S/P/Bld) [Vol rate/Area][facility] WILLIAMSBURGComment on above:Average GFR for 50-59 years old: 93 mL/min/1.73sq m Chronic Kidney Disease: <60 mL/min/1.73sq m Kidney failure: <15 mL/min/1.73sq m eGFR calculated using average adult body mass. Additional eGFR calculator available at: http://www.[employer]/multiple_crcl_2012.htm Glucose [Mass/Vol]96 mg/dL70 - 99 mg/dLBON [facility] MEDICAL CENTERInterpretation and review of laboratory resultsAbnormInova Women's HospitalPotassium [Moles/Vol]2.0 mmol/LCritically low3.7 - 5.3 mmol/LBON [facility] Sodium [Moles/Vol]141 mmol/L135 - 144 mmol/LBON [facility] HOSPITALUrea nitrogen (BldV) [Mass/Vol]5 mg/dLLow6 - 20 mg/dLBON SECOU[facility] WIL[facility]ORIAL HOSPITALUrea nitrogen/Creatinine (Bld) [Mass ratio]5LowBON SECOURS WILSON MEMORIAL HOSPITALBON SECKINDRED HOSPITAL LIMACBC with Auto Differentialon [id number] Eos #0.00BON SEC[facility]SON [facility]OSPITALAbsolute Lymph #1.80[facility]ITALAbsolute Thomas #0.80[facility] HOSPITALBasophils (Bld) [#/Vol]0.00 10*3/uLBON [facility] Basophils/100 WBC (Bld)0 %0 - 2 %[facility]OSPITALEosinophils/100 WBC (Bld)0 %0 - 5 %BON [facility] CENTERHematocrit (Bld) [Volume fraction]29.9 % Low36 - 46 %[facility] LIMAHemoglobin.gastrointestinal spec 1 Ql (Stl) 10.1 g/dLLow12.0 - 16.0 g/dLBON [facility] MEDICAL CENTERInterpretation and review of laboratory resultsAbnormalBON [facility] LIMALymphocytes/100 WBC (Bld)22 % 15 - 40 %BON [facility]PITALH (RBC) [Entitic mass]28.4 pg26 - 34 pgBON SECPREMIER HEALTH [facility]PP[facility] CENTERHC (RBC) [Mass/Vol]33.8 g/dL31 - 37 g/dLBON SECPREMIER HEALTH UPPER VALLEY MEDICAL CENTERV (RBC) [Entitic vol]83.9 fL80 - 100 fLRIVERSIDE DOCTORS' [facility] Monocytes/100 WBC (Bld)10 %High4 - 8 %[facility] HOSPITALMorphology Malachi (Bld) [Interp]MODERATE ANISOCYTOSISBON SECK[facility] LIMAPlatelet distribution width (Bld) [Ratio]19.9 %High12.1 - 15.2 %[facility]OSPITALPlatelets (Bld) [#/Vol]701 10*3/uLHighBON [facility] HOSPITALRBC (Bld) [#/Vol]3.56 10*6/uLLow4.0 - 5.2 m/uLBON SEC[facility]RS WILSON MEMORIAL HOSPITALSegmented neutrophils/100 WBC (Bld)68 %47 - 75 %[facility] LIMASegs Absolute5.60[facility] HOSPITALWBC (Bld) [#/Vol]8.2 10*3/uLBON [facility]SON [facility] HOSPITALBON [facility] HOSPITALMagnesiumon 34-84-8045Lmaqgzprv [Mass/Vol]1.6 mg/dL1.6 - 2.6 mg/dLBON [facility] SECKINDRED HOSPITAL LIMACBC with Auto Differentialon 21-59-8255Edolxowd Eos #0.10[facility] LIMAAbsolute Lymph #1.60[facility] LIMAAbsolute Thomas #1.10HighBON SECK[facility]OSPITAL LIMABasophils (Bld) [#/Vol]0.00 10*3/uLBON [facility] LIMABasophils/100 WBC (Bld)0 %0 - 2 %BON [facility] CENTEREosinophils/100 WBC (Bld)1 %0 - 5 %[facility] WILLIAMSBURGHematocrit (Bld) [Volume fraction]31.2 %Low36 - 46 %BON [facility] CENTERHemoglobin.gastrointestinal spec 1 Ql (Stl)10.4 g/dLLow12.0 - 16.0 g/dLBON [facility] CENTERInterpretation and review of laboratory resultsAbnormalBON [facility] LIMALymphocytes/100 WBC (Bld)20 %15 - 40 %BON [facility]OSPITALH (RBC) [Entitic mass]28.1 pg26 - 34 pgBON SECPREMIER HEALTH UPPER VALLEY MEDICAL CENTERHC (RBC) [Mass/Vol]33.2 g/dL31 - 37 g/dLBON SECPREMIER HEALTH UPPER VALLEY MEDICAL CENTERV (RBC) [Entitic vol]84.7 fL80 - 100 fLBON SECK[facility]DRED [facility]OS[facility]ITAL LIMAMonocytes/100 WBC (Bld)13 %High4 - 8 %[facility] LIMAMorphology Malachi (Bld) [Interp]MODERATE ANISOCYTOSISBON [facility] LIMAMorphology Malachi (Bld) [Interp]Scanned to verify automated differential.[facility] WILLIAMSBURGPlatelet distribution width (Bld) [Ratio] 20.5 %High12.1 - 15.2 %[facility] HEALTHPlatelets (Bld) [#/Vol]725 10*3/uLHighBON [facility]MA MEDICAL CENTERRBC (Bld) [#/Vol]3.68 10*6/uLLow4.0 - 5.2 m/uLRIVERSIDE DOCTORS' HOSPITAL WILLIAMSBURGSegmented neutrophils/100 WBC (Bld)66 %47 - 75 %[facility] WILLIAMSBURGSegs Absolute5.30BON [facility] MEDICAL CENTERWBC (Bld) [#/Vol] 8.1 10*3/uLBON [facility]GICAL CENTERCOVID-19, Rapidon 10-20-9581Pzdawwbrccuybw and review of laboratory resultsAbnormalCRITICAL ACCESS HOSPITALRS-CoV-2 (COVID-19) RNA CAL+probe Ql (Unsp spec)DetectedAbnormal Not DetectedRIVERSIDE DOCTORS' HOSPITAL WILLIAMSBURGComment on above: Rapid NAAT: The specimen is [...] this assay. Fact sheet for Healthcare Providers: https://www.fda.gov/media/407824/download Fact sheet for Patients: https://www.fda.gov/media/936240/download Methodology: Isothermal Nucleic Acid Amplification Results reported to the appropriate Health Department Specimen Description.NASOPHARYNGEAL SWABBON [facility]ALL[facility] SURGICAL CENTERComprehensive Metabolic Panel w/ Reflex to MGon [id number] [Mass/Vol]2.5 g/dLLow3.5 - 5.2 g/dLBON [facility] PARMA MEDICAL CENTERALP (Bld) [Catalytic activity/Vol]450 U/LHigh35 - 104 U/LBON [facility] HOSPITALY HEALTHALT [Catalytic activity/Vol]13 U/L5 - 33 U/LBON [facility] HOSPITALThreadbox [facility] CENTERAnion gap [Moles/Vol]16 mmol/L9 - 17 mmol/LBON [facility] MERCY HOSPITALY HEALTHAST [Catalytic activity/Vol]29 U/L<32 BON [facility] SAN DIEGONQ Mobile Inc.Bilirubin [Mass/Vol]0.64 mg/dL0.30 - 1.20 mg/dLBON SECSA[facility] HEALTHCalcium [Mass/Vol]8.7 mg/dL8.6 - 10.4 mg/dLBON [facility] HEALTHChloride [Moles/Vol]102 mmol/L98 - 107 mmol/LBON [facility] HEALTHCO2 [Moles/Vol]25 mmol/L20 - 31 mmol/LBON [facility] LIMACreatinine [Mass/Vol] 0.85 mg/dL0.50 - 0.90 mg/dLBON CHILDREN'[facility]OS[facility] SAN DIEGONQ Mobile Inc.Free PSA/Total PSA [Mass fraction]6.5 g/dL6.4 - 8.3 g/dLB[facility] GrovoGFR >60 >60 mL/minBON [facility] HEALTHGFR Non->60>60 mL/minBON SECBumpTop MERCY HOSPITALNQ Mobile Inc.GFR/1.73 sq M.predicted MDRD (S/P/Bld) [Vol rate/Area][facility] WILLIAMSBURGComment on above:Average GFR for 50-59 years old: 93 mL/min/1.73sq m Chronic Kidney Disease: <60 mL/min/1.73sq m Kidney failure: <15 mL/min/1.73sq m eGFR calculated using average adult body mass. Additional eGFR calculator available at: http://www.uBiome.datatracker/multiple_crcl_2011.htm Glucose [Mass/Vol]79 mg/dL70 - 99 mg/dLBON CHILDR[facility]OS[facility] SAN DIEGONQ Mobile Inc.Interpretation and review of laboratory resultsAbnormalBON [facility] GrovoPotassium [Moles/Vol]2.2 mmol/LCritically low3.7 - 5.3 mmol/LBON [facility] Sodium [Moles/Vol]143 mmol/L135 - 144 mmol/LBON [facility] MEDICAL CENTERUrea nitrogen (BldV) [Mass/Vol]7 mg/dL6 - 20 mg/dLBON [facility] MEDICAL CENTERUrea nitrogen/Creatinine (Bld) [Mass ratio]8LowBON [facility]ALLS SURGICAL CENTERLactate Dehydrogenaseon 78-93-0290Tnddwsovctejzw and review of laboratory resultsAbnormalBON [facility] MEDICAL CENTERLD317 U/KPxtb748 - 214 U/LBON [facility] CENTERLactic Acidon 84-47-4305Cruoctt [Moles/Vol]1 mmol/L0.5 - 2.2 mmol/LBON [facility] CENTERMagnesiumon 76-35-9302Uxtflmgnizngtl and review of laboratory results AbnormalBON [facility] Centergnesium [Mass/Vol]1.5 mg/dLLow1.6 - 2.6 mg/dL BON [facility] CENTERXR CHEST PORTABLEon 07-13-2021 Left infrahilar patchy airspace disease consistent with a left lower lobe pneumonia. Recommend follow-up imaging 4 weeks post treatment to document resolution. MHPN RIS CONSOLIDATEDEXAM: XR CHEST PORTABLE HISTORY: Reason for exam:->cough [...] within the left humeral head. MHPN RIS Lionel Rg MD - 07/13/2021 EXAM: XR CHEST PORTABLE [...] 4 weeks post treatment to document resolution. [employer] Work Phone: radiology Study observation (narrative)[employer] Work Phone: xr CHEST PORTABLEOrdered By: Lionel Mas on [id number] [employer] Work Phone: Basic Metabolic Panel w/ Reflex to MGon 07-10-2021 Anion gap [Moles/Vol]14 mmol/L9 - 17 mmol/LBON [employer] HoldingsCalcium [Mass/Vol]7.4 mg/dLLow8.6 - 10.4 mg/dLBON SECSVXRChloride [Moles/Vol]110 mmol/LHigh98 - 107 mmol/LBON SECSVXRCO2 [Moles/Vol] 16 mmol/LLow20 - 31 mmol/LBON [employer] HoldingsCreatinine [Mass/Vol]1.01 mg/dLHigh0.50 - 0.90 mg/dLBON [employer] HoldingsGFR >60>60 mL/minBON [employer] HoldingsGFR Non- Sgcbdriw16 mL/minLow>60BON [employer] HoldingsGFR/1.73 sq M.predicted MDRD (S/P/Bld) [Vol rate/Area][facility] [employer] HoldingsGlucose [Mass/Vol]65 mg/dLLow70 - 99 mg/dLBON [employer] Potassium [Moles/Vol]3.3 mmol/LLow3.7 - 5.3 mmol/LBON [employer] HoldingsSodium [Moles/Vol]140 mmol/L135 - 144 mmol/LBON [employer] HoldingsUrea nitrogen (BldV) [Mass/Vol]7 mg/dL6 - 20 mg/dLBON [employer] HoldingsC-Reactive Proteinon [id number] [Mass/Vol]161.7 mg/LHigh0.0 - 5.0 mg/LBON [employer] HoldingsCBC with Auto Differentialon 67-51-0371Sokzrnin Eos #0.18BON [employer] Absolute Immature Granulocyte0.00[facility] LIMAAbsolute Lymph #3.40[facility] LIMAAbsolute Thomas #0.72[facility] LIMABasophils (Bld) [#/Vol]0.00 10*3/uLBON [facility] LIMABasophils/100 WBC (Bld)0 %0 - 2 %[facility] WILLIAMSBURGEosinophils/100 WBC (Bld)1 %1 - 4 %[facility] Hematocrit (Bld) [Volume fraction]25.6 %Low36.3 - 47.1 %[facility] Hemoglobin.gastrointestinal spec 1 Ql (Stl)8.3 g/dLLow11.9 - 15.1 g/dLBON [facility] MEDICAL CENTERImmature granulocytes/100 WBC (Bld)0 %0R[facility]ERSIDE [facility] WILLIAMSBURGInterpretation and review of laboratory resultsAbnormalBON [facility]MA MEDICAL CENTERLymphocytes/100 WBC (Bld)19 %Low24 - 44 %[facility]ITALH (RBC) [Entitic mass]27.8 pg25.2 - 33.5 pgBON [facility]OSPITALHC (RBC) [Mass/Vol] 32.4 g/dL28.4 - 34.8 g/dLBON SECPREMIER HEALTH UPPER VALLEY MEDICAL CENTERV (RBC) [Entitic vol]85.6 fL 82.6 - 102.9 fLRIVERSIDE DOCTORS' HOSPITAL WILLIAMSBURGMonocytes/100 WBC (Bld)4 %1 - 7 %[facility] WILLIAMSBURGMorphology Malachi (Bld) [Interp]ANISOCYTOSIS PRESENTRIVERSIDE DOCTORS' HOSPITAL WILLIAMSBURGNRBC Automated0.00.0 per 100 WBCBON [facility] MEDICAL CENTERPlatelet distribution width (Bld) [Ratio]20.4 %High11.8 - 14.4 %[facility] Platelet mean volume (Bld) [Entitic vol]9.0 fL8.1 - 13.5 fLRIVERSIDE DOCTORS' HOSPITAL WILLIAMSBURGPlatelets (Bld) [#/Vol]530 10*3/uLHighBON [facility] MEDICAL CENTERRBC (Bld) [#/Vol]2.99 10*6/uLLow3.95 - 5.11 m/uLBON [facility] MEDICAL CENTERSeg Vxdpimsjgcw90 %High36 - 66 %[facility]OSPITALJORGE [facility]OSPITALSe Mzyuoipj35.60HighPITTSFIELD GENERAL HOSPITALJORGE WILSON MEMORIAL HOSPITALWBC (Bld) [#/Vol]17.9 10*3/uLHighBON [facility] CENTERJORGE [facility]– BURLINGTONCOVID-19, Rapidon [id number]-CoV-2 (COVID-19) RNA CAL+probe Ql (Unsp spec)Not detectedNot DetectedBON [facility] CENTERJORGE WIL[facility] MEMORIAL HOSPITALSpecimen Description .NASOPHARYNGEAL SWABBON SECCHILDREN'S HOS[facility] WISCON[facility] MILWAUKEECT CERVICAL SPINE WO CONTRASTon [id number] GENERAL [facility] Work Phone: radiology Study observation (narrative)[employer] [facility]UN[facility] MED[facility] CENTERSVXR Work Phone: cT CERVICAL SPINE WO CONTRASTOrdered By: Earl Kohler on [id number] [facility] CENTERB[facility]Top [facility] [employer] Work Phone: Insert PICC lineon [id number] SECBumpTop [facility] [employer] Work Phone: Magnesiumon 76-43-2526Zcjdradyh [Mass/Vol]1.8 mg/dL1.6 - 2.6 mg/dLBON [facility] CENTERNo Panel Information on 58-96-9587Zecoeqdtubgjkl and review of laboratory resultsAbnormHenrico Doctors' Hospital—Henrico CampusC Glucose Fingerstickon 28-32-9974Zsydcow [Mass/Vol]137 mg/gQApco20 - 105 mg/dLBON [facility] CENTERInterpretation and review of laboratory resultsAbnormRiverside Health SystemGlucose [Mass/Vol]77 mg/dL65 - 105 mg/dLBON [facility] CENTERXR CERVICAL SPINE FLEXION AND EXTENSIONon [id number] GENERAL HOSPITAL Work Phone: bON [facility] CENTERSVXR Work Phone: radiology Study observation (narrative)[employer] Work Phone: basic Metabolic Panel w/ Reflex to MGon 07-09-2021 Anion gap [Moles/Vol]11 mmol/L9 - 17 mmol/LBON [facility] HEALTHCalcium [Mass/Vol]7.7 mg/dLLow8.6 - 10.4 mg/dLBON [facility] HEALTHChloride [Moles/Vol]109 mmol/LHigh98 - 107 mmol/LBON [facility] HEALTHCO2 [Moles/Vol] 20 mmol/L20 - 31 mmol/LBON [facility] HEALTHCreatinine [Mass/Vol]0.81 mg/dL 0.50 - 0.90 mg/dLBON [facility] HEALTHGFR >60>60 mL/minBON [facility] HEALTHGFR Non->60>60 mL/minBON [facility] HEALTHGFR/1.73 sq M.predicted MDRD (S/P/Bld) [Vol rate/Area][facility] HEALTHGlucose [Mass/Vol]133 mg/wYYykx58 - 99 mg/dLBON SECOURS Bernard HealthY HEALTH Potassium [Moles/Vol]3.9 mmol/L3.7 - 5.3 mmol/LBON [facility] HEALTHSodium [Moles/Vol]140 mmol/L135 - 144 mmol/LBON [facility] HEALTHUrea nitrogen (BldV) [Mass/Vol]7 mg/dL6 - 20 mg/dLBON [facility] MERCY HEALTHC-Reactive Proteinon [id number] [Mass/Vol]124.1 mg/LHigh0.0 - 5.0 mg/LBON [facility] GrovoCBC with Auto Differentialon [id number] Eos #0.40[facility] Absolute Immature Granulocyte0.08[facility] HEALTHAbsolute Lymph #2.06[facility] HEALTHAbsolute Thomas #0.48[facility] HEALTHBasophils (Bld) [#/Vol]10*3/uLBON [facility] HEALTHBasophils/100 WBC (Bld)0 %0 - 2 %[facility] HEALTHEosinophils/100 WBC (Bld)4 %1 - 4 %[facility] Hematocrit (Bld) [Volume fraction]27.9 %Low36.3 - 47.1 %[facility] Hemoglobin.gastrointestinal spec 1 Ql (Stl)8.5 g/dLLow11.9 - 15.1 g/dLBON [facility] CENTERImmature granulocytes/100 WBC (Bld)1 %Yrwh8JAQRIVERSIDE DOCTORS' HOSPITAL WILLIAMSBURGInterpretation and review of laboratory resultsAbnormalRIVERSIDE DOCTORS' HOSPITAL WILLIAMSBURGLymphocytes/100 WBC (Bld)18 %Low24 - 43 %[facility]OSPITALH (RBC) [Entitic mass]27.3 pg25.2 - 33.5 pgWELLMONT LONESOME PINE MT. VIEW HOSPITALHC (RBC) [Mass/Vol] 30.5 g/dL28.4 - 34.8 g/dLBON [facility] HOSPITALV (RBC) [Entitic vol]89.7 fL 82.6 - 102.9 fLRIVERSIDE DOCTORS' HOSPITAL WILLIAMSBURGMonocytes/100 WBC (Bld)4 %3 - 12 %[facility] WILLIAMSBURGNRBC Automated0.00.0 per 100 WBCRIVERSIDE DOCTORS' HOSPITAL WILLIAMSBURG Platelet distribution width (Bld) [Ratio]19.9 %High11.8 - 14.4 %[facility] WILLIAMSBURGPlatelet mean volume (Bld) [Entitic vol]8.9 fL8.1 - 13.5 fLRIVERSIDE DOCTORS' HOSPITAL WILLIAMSBURGPlatelets (Bld) [#/Vol]434 10*3/uLRIVERSIDE DOCTORS' HOSPITAL WILLIAMSBURG RBC (Bld) [#/Vol]3.11 10*6/uLLow3.95 - 5.11 m/uLRIVERSIDE DOCTORS' HOSPITAL WILLIAMSBURGRBC (Bld) [#/Vol]ANISOCYTOSIS PRESENTRIVERSIDE DOCTORS' HOSPITAL WILLIAMSBURGSeg Ybitihxtggi28 %High 36 - 65 %[facility] WILLIAMSBURGSegs Absolute8.48HighRIVERSIDE DOCTORS' HOSP[facility]SB[facility] WBC (Bld) [#/Vol]11.5 10*3/uLHighRUSSELL COUNTY MEDICAL CENTERCOVID-19, Rapidon [id number]-CoV-2 (COVID-19) RNA CAL+probe Ql (Unsp spec)Not detectedNot DetectedBON [facility] HEALTHSpecimen Description .NASOPHARYNGEAL SWABBON SECCHILDREN'S HOSPITAL OF WISCONSIN– MILWAUKEENo Panel Informationon [id number] and review of laboratory resultsAbnormal BON [facility] Glucose Fingerstickon 58-63-6762Ylypqwh [Mass/Vol]101 mg/dL65 - 105 mg/dLBON SECHE[facility] HEALTHGlucose [Mass/Vol]146 mg/nRKpjm80 - 105 mg/dLBON [facility] HEALTHInterpretation and review of laboratory resultsAbnormalBON [facility] HEALTHGlucose [Mass/Vol]99 mg/dL65 - 105 mg/dLBON [facility] HEALTHGlucose [Mass/Vol]138 mg/mRGkjx90 - 105 mg/dLBON [facility] HEALTHInterpretation and review of laboratory results AbnormalRIVERSIDE [facility] HEALTHGlucose [Mass/Vol]171 mg/dQIhmv51 - 105 mg/dLBON SECSA[facility] HEALTHInterpretation and review of laboratory resultsAbnormalBON [facility] HEALTH Glucose [Mass/Vol]279 mg/wPUcjm09 - 105 mg/dLBON SECSAINT [facility] HEALTH Interpretation and review of laboratory resultsAbnormInova [facility] HEALTHGlucose [Mass/Vol]59 mg/dLLow65 - 105 mg/dLBON SECSAINT [facility] HEALTHInterpretation and review of laboratory resultsAbnormalRIVERSIDE [facility] HEALTHGlucose [Mass/Vol]59 mg/dLLow65 - 105 mg/dL BON [facility] HEALTHInterpretation and review of laboratory resultsAbnormal BON [facility] HEALTHGlucose [Mass/Vol]58 mg/dLLow65 - 105 mg/dLBON SECSAINT [facility]ANC[facility] HEALTHInterpretation and review of laboratory resultsAbnormBon [facility] HEALTHGlucose [Mass/Vol]306 mg/rQJbgc63 - 105 mg/dLBON SECSAINT [facility] HEALTHInterpretation and review of laboratory resultsAbnormBon [facility] HEALTHBasic Metabolic Panel w/ Reflex to MGon 13-12-1344Qekrf gap [Moles/Vol]10 mmol/L9 - 17 mmol/LBON [facility] HEALTHCalcium [Mass/Vol]7.3 mg/dLLow8.6 - 10.4 mg/dLBON [facility] HEALTHChloride [Moles/Vol]108 mmol/LHigh98 - 107 mmol/LBON [facility] MERCY HOSPITALY HEALTHCO2 [Moles/Vol]20 mmol/L20 - 31 mmol/LBON [facility] HEALTHCreatinine [Mass/Vol]0.83 mg/dL0.50 - 0.90 mg/dLBON [facility] HEALTHGFR >60>60 mL/minBON [facility] Bernard HealthY HEALTHGFR Non->60>60 mL/minBON [facility] Bernard HealthY HEALTHGFR/1.73 sq M.predicted MDRD (S/P/Bld) [Vol rate/Area]BON SECSTATE MENTAL HEALTH FACILITYThreadbox [facility] CENTERGlucose [Mass/Vol]141 mg/dLHigh 70 - 99 mg/dLBON SECSTATE MENTAL HEALTH FACILITYThreadbox HEALTHInterpretation and review of laboratory resultsAbnormalBON [facility] HEALTHPotassium [Moles/Vol]2.9 mmol/LCritically low3.7 - 5.3 mmol/LBON [facility] HEALTHSodium [Moles/Vol]138 mmol/L135 - 144 mmol/LBON SECOURS MERCY HOSPITALNQ [employer].Urea nitrogen (BldV) [Mass/Vol]7 mg/dL6 - 20 mg/dLBON SECOURS [facility] HOSPITALBON [facility] MERCY HOSPITALThreadbox [facility] CENTERC-Reactive Proteinon [id number] [Mass/Vol]131.5 mg/LHigh0.0 - 5.0 mg/LBON [facility] MERCY HOSPITALThreadbox HEALTH Interpretation and review of laboratory resultsAbnormalBON [facility] HEALTH BON SECBumpTop MERCY HOSPITALNQ [employer].CBC with Auto Differentialon [id number] Eos # 0.31B[facility] HEALTHAbsolute Immature Granulocyte0.05B[facility] HEALTHAbsolute Lymph #1.87[facility] HEALTHAbsolute Thomas #0.37B[facility] HEALTHBasophils (Bld) [#/Vol]10*3/uLBON [facility]OURS MERCY HEALTHBasophils/100 WBC (Bld)0 %0 - 2 %[facility] HEALTHEosinophils/100 WBC (Bld)3 %1 - 4 % [facility] HEALTHHematocrit (Bld) [Volume fraction]21.5 %Low36.3 - 47.1 % [facility] HEALTHHemoglobin.gastrointestinal spec 1 Ql (Stl)6.9 g/dL Critically low11.9 - 15.1 g/dLBON [facility] HEALTHImmature granulocytes/100 WBC (Bld)0 %0BON SEC[facility] MERCY HOSPITALY HEALTHInterpretation and review of laboratory resultsAbnormalBON SECOURS MERCY HOSPITALY HEALTHLymphocytes/100 WBC (Bld)17 %Low24 - 43 % B[facility] MERCY HOSPITALY [facility] CENTERH (RBC) [Entitic mass]27.5 pg25.2 - 33.5 pgBON SECOURS [facility]PITALHC (RBC) [Mass/Vol]32.1 g/dL28.4 - 34.8 g/dLBON SECPREMIER HEALTH UPPER VALLEY MEDICAL CENTERV (RBC) [Entitic vol]85.7 fL82.6 - 102.9 fLORO [facility] SECKINDRED HOSPITAL LIMA Monocytes/100 WBC (Bld)3 %3 - 12 %B[facility] MERCY HOSPITALY HEALTHNRBC Automated0.00.0 per 100 WBCBON [facility]OURS MERCY HEALTHPlatelet distribution width (Bld) [Ratio]18.6 %High11.8 - 14.4 %[facility] HEALTHPlatelet mean volume (Bld) [Entitic vol]8.9 fL8.1 - 13.5 fLBON SECOURS MERCY HEALTHPlatelets (Bld) [#/Vol]328 10*3/uLBON SECOURS MERCY HEALTHRBC (Bld) [#/Vol]2.51 10*6/uLLow3.95 - 5.11 m/uL B[facility] MERCY HEALTHRBC (Bld) [#/Vol]ANISOCYTOSIS PRESENTBON SECOURS MERCY HOSPITALY HEALTHSeg Xupctpljyfh46 %High36 - 65 %[facility] HEALTHSegs Absolute8.74 HighBON SECOURS MERCY HEALTHWBC (Bld) [#/Vol]11.4 10*3/uLHighBON SECOURS MERCY HEALTHBON SECOURS MERCY HOSPITALY HEALTHCulture, Urineon [id number] identified Cx Nom (U)NO GROWTHRIVERSIDE DOCTORS' HOSPITAL WILLIAMSBURGSpecimen Description.INDWELLING CATH URINEBON SIOUX FALLS SURGICAL CENTERBacteria identified Cx Nom (U)NO GROWTHRIVERSIDE DOCTORS' HOSPITAL WILLIAMSBURGSpecimen Description.INDWELLING CATH URINE B[facility] CENTERHemoglobin and Hematocriton 14-14-4487Htggrkwfrf (Bld) [Volume fraction]25.5 %Low36.3 - 47.1 %BON [facility] CENTERHemoglobin.gastrointestinal spec 1 Ql (Stl)8.1 g/dLLow11.9 - 15.1 g/dLBON [facility] MEDICAL CENTERInterpretation and review of laboratory results AbnormalBON SIOUX FALLS SURGICAL CENTERMRI BRAIN W WO CONTRAST on [id number] RIS CONSOLIDATEDPN RIS [facility] Work Phone: MRI BRAIN W WO CONTRASTOrdered By: Mai Villarreal on [id number] VIR[facility]IA [facility] Work Phone: Magnesiumon 67-99-7094Xhxgovvhn [Mass/Vol]1.7 mg/dL1.6 - 2.6 mg/dLBON SI[facility]X FALLS SURGICAL CENTERPO Glucose Fingerstickon 35-40-5427Gmzezyl [Mass/Vol]139 mg/lKJxhx70 - 105 mg/dLBON [facility]ICAL CENTERInterpretation and review of laboratory resultsAbnormalBON SI[facility]X FALLS SURGICAL CENTERGlucose [Mass/Vol]140 mg/aKPkfk76 - 105 mg/dLBON [facility] MEDICAL CENTERInterpretation and review of laboratory results AbnormalBON SIOUX FALLS SURGICAL CENTERGlucose [Mass/Vol]192 mg/hCFczx17 - 105 mg/dLBON [facility] MEDICAL CENTERInterpretation and review of laboratory resultsAbnormalRUSSELL COUNTY MEDICAL CENTERBasic Metabolic Panel w/ Reflex to MGon [id number] gap [Moles/Vol]12 mmol/L9 - 17 mmol/LBON [facility]MA MEDICAL CENTERCalcium [Mass/Vol]7.8 mg/dLLow8.6 - 10.4 mg/dLBON [facility]OU[facility] HEALTHChloride [Moles/Vol]106 mmol/L98 - 107 mmol/LBON [facility]OURS MERCY HEALTHCO2 [Moles/Vol]22 mmol/L20 - 31 mmol/LB[facility] Creatinine [Mass/Vol]0.83 mg/dL0.50 - 0.90 mg/dLBON [facility] MERCY HEALTHGFR >60>60 mL/minBON SECOURS MERCY HEALTHGFR Non->60 >60 mL/minBON SECOURS MERCY HEALTHGFR/1.73 sq M.predicted MDRD (S/P/Bld) [Vol rate/Area][facility] HEALTHGlucose [Mass/Vol]205 mg/jDKizo59 - 99 mg/dL [facility] HEALTHPotassium [Moles/Vol]3.9 mmol/L3.7 - 5.3 mmol/LBON SECOURS MERCY HEALTHSodium [Moles/Vol]140 mmol/L135 - 144 mmol/LBON [facility]RS MERCY HEALTHUrea nitrogen (BldV) [Mass/Vol]8 mg/dL6 - 20 mg/dLBON SECOURS MERCY HEALTHC-Reactive Proteinon [id number] [Mass/Vol]141.9 mg/LHigh0.0 - 5.0 mg/L [facility] HEALTHCBC with Auto Differentialon [id number] Eos # <0.03B[facility] HEALTHAbsolute Immature Granulocyte0.06B[facility] HEALTHAbsolute Lymph #0.72LowBON SECOURS MERCY HEALTHAbsolute Thomas #0.51B[facility] HEALTHBasophils (Bld) [#/Vol]10*3/uLBON SECOURS [facility]ALTH Basophils/100 WBC (Bld)0 %0 - 2 %[facility] HEALTHEosinophils/100 WBC (Bld)0 %Low1 - 4 %[facility] HEALTHHematocrit (Bld) [Volume fraction]27.9 %Low36.3 - 47.1 %[facility] HEALTHHemoglobin.gastrointestinal spec 1 Ql (Stl)9.2 g/dLLow11.9 - 15.1 g/dLBON [facility]CY HEALTHImmature granulocytes/100 WBC (Bld)1 %Izsg4STW SECSA[facility] HEALTHInterpretation and review of laboratory resultsAbnormalBON SECSA[facility] HEALTHLymphocytes/100 WBC (Bld)7 %Low24 - 43 %BON [facility]ITALH (RBC) [Entitic mass]27.5 pg25.2 - 33.5 pgBON SECPREMIER HEALTH [facility] MEDICAL CENTERHC (RBC) [Mass/Vol]33.0 g/dL28.4 - 34.8 g/dL BON [facility]PRE[facility]ICAL CENTERV (RBC) [Entitic vol]83.5 fL82.6 - 102.9 fLBON SECSAINT [facility]ANCIS [facility] HEALTHMonocytes/100 WBC (Bld)5 %3 - 12 %[facility] HEALTHNRBC Automated0.00.0 per 100 WBCBON SECSAINT [facility]ANC[facility] HEALTHPlatelet distribution width (Bld) [Ratio]17.2 %High11.8 - 14.4 %BON [facility]SA[facility] HEALTHPlatelet mean volume (Bld) [Entitic vol]9.1 fL8.1 - 13.5 fLBON SECSA[facility] HEALTHPlatelets (Bld) [#/Vol]372 10*3/uLBON SECOURS MERCY HOSPITALY HEALTHRBC (Bld) [#/Vol]3.34 10*6/uLLow3.95 - 5.11 m/uLBON [facility] HEALTHRBC (Bld) [#/Vol]ANISOCYTOSIS PRESENTBON MET[facility] PARMA MEDICAL CENTERSeg Zbdxlnqdoor44 %High36 - 65 %BON [facility] HEALTHSegs Absolute9.77HighBON [facility] HEALTHWBC (Bld) [#/Vol]11.1 10*3/uLBON [facility] HEALTHBON [facility]CY HOSPITALY HEALTHMicroscopic Urinalysison 07-07-2021 Bacteria, UAMANYAbnormalNoneBON [facility] HEALTHCasts UA10 TO 20 HYALINE Reference range defined for non-centrifuged specimen.BON [facility] Epithelial Cells UA10 TO 20BON [facility] HEALTHInterpretation and review of laboratory resultsAbnormalBON [facility]ITALY HEALTHRBC, UA20 TO 50BON [facility]Y HEALTHWBC, UA10 TO 20[facility] HOSPITALSalma HEALTHNo Panel Informationon [id number] and review of laboratory results AbnormalBON SECJORGE MERCY HOSPITALSalma [facility]ENTERJORGE [facility]OSPITALSalma HEALTHPOC Glucose Fingerstick on 35-45-3332Qknsped [Mass/Vol]126 mg/pLQlrv29 - 105 mg/dLBON SECJORGE MERCY HOSPITALY HEALTHInterpretation and review of laboratory resultsAbnormalBON SECJORGE MERCY HOSPITALSalma [facility] CENTERJORGE [facility] HOSPITALSalma HEALTHGlucose [Mass/Vol]163 mg/fVUnxj29 - 105 mg/dLBON SECJORGE [facility]OSPITALY HEALTHInterpretation and review of laboratory resultsAbnormalBON SECJORGE MERCY HOSPITALSalma [facility] CENTERARASELI RCUZ [facility]OSPITALSalma HEALTHGlucose [Mass/Vol]132 mg/iTNfsd72 - 105 mg/dLBON SECJORGE MERCY HOSPITALY HEALTHInterpretation and review of laboratory results AbnormalBON ANTHONY [facility]OSPITALSalma [facility]ENTERJ[facility] HEALTHTYPE AND SCREENon 21-21-3482XYN/RhPositiveBON ANTHONY [facility] HOSPITALSalma HEALTHArm Band NumberBE [id number] EUGENESTATE MENTAL HEALTH FACILITYSalma HEALTHBlood Bank Blood Product Expiration [id number] [facility]ITALSalma HEALTHBlood Bank ISBT Product Blood [id number] ANTHONY [facility]ITALSalma HEALTHBlood Bank Unit Type and RhPositiveBON SECJORGE MERCY HOSPITALY HEALTHBlood product type Nom (BPU)Leukocyte Reduced Red CellBON ANTHONY [facility] HOSPITALY HEALTHBlood product unit ID (Dose) [#][id number] AN[facility]OSPITALSalma HEALTHCrossmatch Result COMPATIBLEORO VALLEY HOSPITAL ANTHONY [facility]OSPITALSalma HEALTHDispense StatusTRANSFUSEDBRIVERSIDE HEALTH SYSTEM HEALTHExpiration Date07/09/2021,2359BON AN[facility]OSPITALSalma HEALTHProduct Code Blood [id number] SECJORGE [facility] HOSPITALSalma HEALTHTransfusion StatusOK TO TRANSFUSEBON [facility] CENTERJORGE MERCY HOSPITALSalma HEALTHUnit [id number] [facility] CENTERJORGE MERCY HOSPITALSalma HEALTHUnit Issue Date/Time [id number] [facility]ITALSalma [facility] SECJORGE MERCY HOSPITALY HEALTHUrinalysis with Reflex to Cultureon [id number] UrineNegativeNEGATIVEPITTSFIELD GENERAL HOSPITALJORGE MERCY HOSPITALSalma HEALTHColor, UAYellowYellowBON ANTHONY [facility] HOSPITALSalma HEALTHGlucose, Ur1+AbnormalNEGATIVE [facility]ITALJOR[facility] HEALTHInterpretation and review of laboratory resultsAbnormal BON [facility]OSPITALSalma HEALTHKetones Ql (U)TRACEAbnormalNEGATIVEBON SEC[facility]OSPITALY HEALTHLeukocyte esterase Test strip Ql (U)NegativeNEGATIVEBON [facility] HEALTHNitrite, UrineNegativeNEGATIVEBON [facility] HEALTHpH, UA5.5BON [facility] HEALTHProtein, UANegativeNEGATIVEBON [facility] HEALTHSpecific [place], UA1.024BON [facility] HEALTHTurbidity UAClearClearBON SECOURS MER[facility] HOSPITALY HEALTHUrine HgbMODERATEAbnormalNEGATIVEBON [facility] HEALTHUrobilinogen, UrineNormalNormalBON SECOU[facility]OSPITALY HEALTHORO VALLEY [facility]ITAL SEC[facility] HOSPITALY HEALTHBasic Metabolic Panel w/ Reflex to MGon 02-86-8219Audaj gap [Moles/Vol]8 mmol/LLow9 - 17 mmol/L [facility] SYSTEMSY HEALTHCalcium [Mass/Vol]8.1 mg/dLLow8.6 - 10.4 mg/dLBON SECM[facility] MERCY HEALTHChloride [Moles/Vol]102 mmol/L98 - 107 mmol/LBON [facility] HOSPITALY HEALTHCO2 [Moles/Vol]23 mmol/L20 - 31 mmol/LBON [facility] HEALTH Creatinine [Mass/Vol]0.9 mg/dL0.50 - 0.90 mg/dLBON [facility] MERCY HEALTHGFR >60>60 mL/minORO VALLEY HOSPITAL SECOU[facility] MERCY HOSPITALY HEALTHGFR Non->60 >60 mL/minORO VALLEY HOSPITAL SECOU[facility] MERCY HOSPITALY HEALTHGFR/1.73 sq M.predicted MDRD (S/P/Bld) [Vol rate/Area]BON SECSTATE MENTAL [facility]ALTH FACILITYY HEALTHGlucose [Mass/Vol]138 mg/rLTedr69 - 99 mg/dL [facility] SYSTEMSY HEALTHInterpretation and review of laboratory resultsAbnormal B[facility] HEALTHPotassium [Moles/Vol]3.2 mmol/LLow3.7 - 5.3 mmol/LBON [facility] HEALTHSodium [Moles/Vol]133 mmol/YVza734 - 144 mmol/LBON [facility] HEALTHUrea nitrogen (BldV) [Mass/Vol]7 mg/dL6 - 20 mg/dLBON SECSA[facility] HEALTHORO VALLEY [facility]ITAL SECOU[facility] MERCY HOSPITALY HEALTHBlood Gas, Arterialon 72-90-1482Ejyna Test INFORMATION NOT PROVIDEDCARILION STONEWALL [facility] HEALTHCarboxyhemoglobin1.1 %0 - 5 %BON [facility] HOSPITALY QZPBIXSAA2185%B[facility]OS[facility]ITALY HEALTHHCO3 (Bld) [Moles/Vol]22.7 mmol/L22 - 27 mmol/LBON [facility]RS [facility]OSPITALY HEALTHOxygen saturation in Blood99.6 %94 - 100 %[facility]ITALY HEALTHpCO2, Sfzewmny18.4LowBON [facility]OSPITALY HEALTHpH, Arterial7.529HighBON [facility]RS [facility]CY HOSPITALY HEALTHpO2, Pbcoxfmn295.0HighBON [facility]OSPITALY HEALTHPositive Base Excess, Art0.5 mmol/L0.0 - 2.0 mmol/LBON [facility]ITALY HEALTHPt Temp37.0BON [facility] HOSPITALC-Reactive Proteinon 95-31-1529QTR [Mass/Vol]183.8 mg/LHigh0.0 - 5.0 mg/LBON [facility]ITALY HEALTHInterpretation and review of laboratory resultsAbnormalBON [facility] CENTEROURS [facility]– BURLINGTONCBC with Auto Differentialon 93-83-8771Cyasfeow Eos #0.25B[facility] HEALTHAbsolute Immature Granulocyte0.04B[facility] HEALTHAbsolute Lymph # 1.52B[facility] HEALTHAbsolute Thomas #0.43[facility] HEALTHBasophils (Bld) [#/Vol]10*3/uLBON [facility] HEALTHBasophils/100 WBC (Bld)0 %0 - 2 % B[facility] HOSPITALY HEALTHEosinophils/100 WBC (Bld)3 %1 - 4 %B[facility]ITALY HEALTHHematocrit (Bld) [Volume fraction]27.5 %Low36.3 - 47.1 %[facility]ITALY HEALTHHemoglobin.gastrointestinal spec 1 Ql (Stl)8.5 g/dLLow11.9 - 15.1 g/dLBON SEC[facility] HOSPITALImmature granulocytes/100 WBC (Bld)1 %Bkol7FDF [facility] HEALTHInterpretation and review of laboratory resultsAbnormalBON [facility] MEDICAL CENTERLymphocytes/100 WBC (Bld)20 %Low24 - 43 %B[facility]ORIAL HOSPITALMCH (RBC) [Entitic mass]26.0 pg25.2 - 33.5 pgBON SECOURS WILSON MEMORIAL HOSPITALMCHC (RBC) [Mass/Vol] 30.9 g/dL28.4 - 34.8 g/dLBON SECOURS MERCY HOSPITALY [facility] CENTERMCV (RBC) [Entitic vol]84.1 fL 82.6 - 102.9 fLORO VALLEY [facility] SECKINDRED HOSPITAL LIMAMonocytes/100 WBC (Bld)6 %3 - 12 %[facility] SECSTATE MENTAL HEALTH FACILITYY HEALTHNRBC Automated0.00.0 per 100 WBCORO VALLEY HOSPITAL [facility] Platelet distribution width (Bld) [Ratio]18.2 %High11.8 - 14.4 %B[facility]OSPITALY HEALTHPlatelet mean volume (Bld) [Entitic vol]9.4 fL8.1 - 13.5 fLBON SECOURS MERCY HOSPITALY HEALTHPlatelets (Bld) [#/Vol]378 10*3/uLBON [facility] RBC (Bld) [#/Vol]3.27 10*6/uLLow3.95 - 5.11 m/uLBON [facility]OURS WILSON MEMORIAL HOSPITALRBC (Bld) [#/Vol]ANISOCYTOSIS PRESENTBON BANNER THUNDERBIRD MEDICAL CENTEROURS WILSON MEMORIAL HOSPITALSeg Ztptfsvhryz77 %High 36 - 65 %B[facility] HOSPITALY HEALTHSegs Absolute5.41BON [facility] HOSPITALY [facility] CENTERWBC (Bld) [#/Vol]7.7 10*3/uLBON SECOURS [facility]CY HOSPITALY HEALTHBON [facility]ITALY HEALTHCalcium, Ionizedon 13-46-4695Arzrdtx [Moles/Vol]1.14 mmol/L1.13 - 1.33 mmol/LBON [facility]OSPITALY HEALTHCalcium [Moles/Vol]1.13 mmol/L1.13 - 1.33 mmol/LBON [facility] HEALTHChloride, Whole Bloodon 02-90-0712Dzbtdshg [Moles/Vol]109 mmol/L98 - 110 mmol/LBON [facility]RS [facility] HOSPITALY HEALTHCulture, Blood 1on 14-22-4816Evsefvxu identified Cx Nom (Unsp spec)PositiveAbnormalBON SEC[facility] HOSPITALY HEALTHBacteria identified Cx Nom (Unsp spec)DIRECT GRAM STAIN FROM BOTTLE: GRAM POSITIVE COCCI IN CLUSTERS [facility] WILLIAMSBURGBacteria identified Cx Nom (Unsp spec)STAPHYLOCOCCUS AUREUS For susceptibility, refer to previous culture.AbnormalCARILION STONEWALL [facility] HEALTHBacteria identified Cx Nom (Unsp spec)(NOTE) Direct Gram Stain from bottle result called to and read back by: RICH Miranda 07/05/21 0115BON [facility]ICAL CENTERInterpretation and review of laboratory resultsAbnormInova Women's HospitalSpecial RequestsR HAND 10MLRIVERSIDE DOCTORS' HOSPITAL WILLIAMSBURGSpecimen Description .BLOODBON SECCHILDREN'S HOSPITAL OF WISCONSIN– MILWAUKEEBacteria identified Cx Nom (Unsp spec)PositiveAbnormalBON SECKINDRED HOSPITAL LIMABacteria identified Cx Nom (Unsp spec)DIRECT GRAM STAIN FROM BOTTLE: GRAM POSITIVE COCCI IN CLUSTERSRIVERSIDE DOCTORS' HOSPITAL WILLIAMSBURGBacteria identified Cx Nom (Unsp spec)STAPHYLOCOCCUS AUREUS This isolate is methicillin susceptible.AbnormalRIVERSIDE DOCTORS' HOSPITAL WILLIAMSBURGBacteria identified Cx Nom (Unsp spec)(NOTE) Direct Gram Stain from bottle result called to and read back by: RICH Miranda RN AT 0020 ON 07/05/21BON [facility] Interpretation and review of laboratory resultsAbnormInova Women's Hospital Special RequestsL HAND 20MLPITTSFIELD GENERAL HOSPITALBumpTop WILSON MEMORIAL HOSPITALSpecimen Description.BLOODRIVERSIDE [facility] HEALTHFLUORO FOR SURGICAL PROCEDURESon 28-06-9795XLLY RIS CONSOLIDATEDGlucose, Whole Bloodon 86-34-1518Oriqzhg [Mass/Vol]131 mg/zNZxfd53 - 105 mg/dLBON [facility] MEDICAL CENTERMagnesiumon 79-23-0844Dbmckqhvn [Mass/Vol]2.3 mg/dL1.6 - 2.6 mg/dLBON [facility] HEALTH [facility] WILLIAMSBURGNo Panel Informationon 69-24-4735IIQ [facility] CENTERInterpretation and review of laboratory resultsAbnormalRUSSELL COUNTY MEDICAL CENTEROPEN HEART PANELon 78-91-2462Qviur TestINFORMATION NOT PROVIDEDBON [facility] MEDICAL CENTERCarboxyhemoglobin0.8 %0 - 5 %[facility] HEALTHChloride [Moles/Vol]108 mmol/L98 - 110 mmol/LBON [facility] LQQMECVDQ265%[facility] HEALTHGlucose [Mass/Vol]207 mg/mPTiaf87 - 105 mg/dLBON [facility] HEALTHHCO3 (Bld) [Moles/Vol]21.4 mmol/LLow22 - 27 mmol/L [facility] HEALTHHematocrit (Bld) [Volume fraction]30.6 %Low36.3 - 47.1 % [facility] HEALTHHemoglobin.gastrointestinal spec 1 Ql (Stl)9.9LowBON [facility] HEALTHInterpretation and review of laboratory resultsAbnormalBON SECOU[facility]CY HOSPITALY HEALTHNegative Base Excess, Art2.3 mmol/LHigh0.0 - 2.0 mmol/LBON [facility] HEALTHOxygen saturation in Blood99.4 %94 - 100 %[facility] HEALTHpCO2, Lvgusrxf85.8B[facility] HEALTHpH, Arterial7.406B[facility] HEALTHpO2, Ryqqtorv320.0HighBON SECOURS MERCY HOSPITALY HEALTHPotassium [Moles/Vol] 3.7 mmol/L3.6 - 5.0 mmol/LBON SEC[facility]RS [facility]OSPITALY HEALTHPt Temp35.9B[facility] HEALTHSodium [Moles/Vol]140 mmol/L136 - 145 mmol/LBON SECOURS [facility]CY HOSPITALY HEALTHOpen Heart H&Hon 41-10-2403Hsluqmgjcg (Bld) [Volume fraction]21.0 %Low36.3 - 47.1 % [facility] HEALTHHemoglobin.gastrointestinal spec 1 Ql (Stl)6.7Critically lowBON [facility]C Glucose Fingerstickon 69-53-1691Qwisdce [Mass/Vol]192 mg/sVThmz22 - 105 mg/dLBON [facility] HEALTHInterpretation and review of laboratory resultsAbnormalBON SECOURS MERCY HOSPITALY HEALTHBON [facility] HEALTHGlucose [Mass/Vol]136 mg/dAGiqw18 - 105 mg/dLBON [facility]OSPITALY HEALTH Interpretation and review of laboratory resultsAbnormalBON SECOURS MERCY HOSPITALY HEALTH BON [facility]ITALY HEALTHGlucose [Mass/Vol]132 mg/aQNvlz61 - 105 mg/dLBON [facility] HEALTHInterpretation and review of laboratory resultsAbnormalBON SECOURS [facility] HOSPITALY HEALTHBON [facility] HEALTHPotassium, Whole Bloodon 14-36-6271Llcqiihiw [Moles/Vol]3.6 mmol/L3.6 - 5.0 mmol/LBON [facility] HEALTHSodium, Whole Bloodon 76-99-8203Uuelah [Moles/Vol]140 mmol/L136 - 145 mmol/LBON [facility] HEALTHBasic Metabolic Panel w/ Reflex to MGon 69-07-6131Qrcxf gap [Moles/Vol]10 mmol/L9 - 17 mmol/LBON [facility] HEALTHCalcium [Mass/Vol]8.4 mg/dLLow8.6 - 10.4 mg/dLBON [facility] HEALTHChloride [Moles/Vol]101 mmol/L98 - 107 mmol/L [facility] HEALTHCO2 [Moles/Vol]27 mmol/L20 - 31 mmol/LBON [facility] HEALTHCreatinine [Mass/Vol]0.79 mg/dL0.50 - 0.90 mg/dLBON [facility]ALTH GFR >60>60 mL/minBON SECOURS Bernard HealthY HEALTHGFR Non->60>60 mL/minBON SECOURS Bernard HealthY HEALTHGFR/1.73 sq M.predicted MDRD (S/P/Bld) [Vol rate/Area]BON SECOURS [employer] HEALTHGlucose [Mass/Vol]136 mg/dLHigh 70 - 99 mg/dLBON [facility] HEALTHInterpretation and review of laboratory resultsAbnormalBON [facility] HEALTHPotassium [Moles/Vol]3.1 mmol/LLow3.7 - 5.3 mmol/LBON SECOURS Bernard HealthY HEALTHSodium [Moles/Vol]138 mmol/L135 - 144 mmol/L BON SECSTATE MENTAL HEALTH FACILITYThreadbox HEALTHUrea nitrogen (BldV) [Mass/Vol]7 mg/dL6 - 20 mg/dLBON SECOURS MERCY HOSPITALY HEALTHBON SEC[facility]OS[facility]ITALY HEALTHC-Reactive Proteinon 15-06-8917JGI [Mass/Vol]186.3 mg/LHigh0.0 - 5.0 mg/LBON [facility] HEALTHInterpretation and review of laboratory resultsAbnormalBON SEC[facility] HEALTHBON SECOURS MERCY HOSPITALY HEALTHCBC with Auto Differentialon 00-26-2921Njdoxycg Eos #0.15B[facility] HEALTHAbsolute Immature Granulocyte0.06B[facility] HEALTHAbsolute Lymph # 2.56BON [facility] HOSPITALAbsolute Thomas #0.43BON [facility] HOSPITALBasophils (Bld) [#/Vol]10*3/uLBON SECOURS [facility] MEMORIAL HOSPITALBasophils/100 WBC (Bld)0 %0 - 2 % BON SECKINDRED HOSPITAL LIMAEosinophils/100 WBC (Bld)2 %1 - 4 %[facility] WILLIAMSBURGHematocrit (Bld) [Volume fraction]24.6 %Low36.3 - 47.1 %BON SECKINDRED HOSPITAL LIMAHemoglobin.gastrointestinal spec 1 Ql (Stl)7.9 g/dLLow11.9 - 15.1 g/dLBON SECKINDRED [facility]OSPITAL LIMAImmature granulocytes/100 WBC (Bld)1 %Puoz4UAFRIVERSIDE DOCTORS' HOSPITAL WILLIAMSBURGInterpretation and review of laboratory resultsAbnormalBON [facility] MEDICAL CENTERLymphocytes/100 WBC (Bld)26 %24 - 43 %[facility]OSPITALH (RBC) [Entitic mass]26.5 pg25.2 - 33.5 pgBON [facility] HOSPITALHC (RBC) [Mass/Vol] 32.1 g/dL28.4 - 34.8 g/dLBON SECPREMIER HEALTH UPPER VALLEY MEDICAL CENTERV (RBC) [Entitic vol]82.6 fL 82.6 - 102.9 fLRIVERSIDE DOCTORS' HOSPITAL WILLIAMSBURGMonocytes/100 WBC (Bld)4 %3 - 12 %[facility] WILLIAMSBURGNRBC Automated0.00.0 per 100 WBCRIVERSIDE DOCTORS' HOSPITAL WILLIAMSBURG Platelet distribution width (Bld) [Ratio]17.5 %High11.8 - 14.4 %[facility] WILLIAMSBURGPlatelet mean volume (Bld) [Entitic vol]9.7 fL8.1 - 13.5 fLORO [facility] SECKINDRED HOSPITAL LIMAPlatelets (Bld) [#/Vol]341 10*3/uLBON [facility] RBC (Bld) [#/Vol]2.98 10*6/uLLow3.95 - 5.11 m/uLBON SECKINDRED HOSPITAL LIMARBC (Bld) [#/Vol]ANISOCYTOSIS PRESENTBON SEC[facility]RS MERCY HEALTHSeg Klczpvcsczj55 %High 36 - 65 %[facility] WILLIAMSBURGSegs Absolute6.79BON [facility] MEDICAL CENTERWBC (Bld) [#/Vol]10.0 10*3/uLRUSSELL COUNTY [facility] Culture, Blood 1on 84-29-3195Tqjmjikp identified Cx Nom (Unsp spec)Positive AbnormalRIVERSIDE DOCTORS' HOSPITAL WILLIAMSBURGBacteria identified Cx Nom (Unsp spec)DIRECT GRAM STAIN FROM BOTTLE: GRAM POSITIVE COCCI IN CLUSTERSRIVERSIDE DOCTORS' HOSP[facility] WILL[facility]SB[facility]G Bacteria identified Cx Nom (Unsp spec)STAPHYLOCOCCUS AUREUS This isolate is methicillin susceptible.AbnormalRIVERSIDE DOCTORS' HOSPITAL WILLIAMSBURGBacteria identified Cx Nom (Unsp spec)(NOTE) Direct Gram Stain from bottle result called to and read back by: VIRGIE Parker AT 0225 ON 07/04/21R[facility] WILLIAMSBURGInterpretation and review of laboratory resultsAbnormalRIVERSIDE DOCTORS' HOSPITAL WILLIAMSBURGSpecial Requests LT HAND 2MLRIVERSIDE DOCTORS' HOSPITAL WILLIAMSBURGSpecimen Description.BLOODRUSSELL COUNTY MEDICAL CENTERFL MODIFIED BARIUM SWALLOW W VIDEOon 07-05-2021 PN RIS CONSOLIDATEDSANFORD [facility] Work Phone: bON [facility] Work Phone: radiology Study observation (narrative)[facility] Work Phone: MRI BRAIN W WO CONTRASTon 45-09-1627Pveggtoim Study observation (narrative)[facility] Work Phone: MRI CERVICAL SPINE W WO CONTRASTon [id number] RIS CONSOLIDATEDSANFORD [facility] Work Phone: MRI CERVICAL SPINE W WO CONTRASTOrdered By: Fredi Ramirez on [id number] [facility] Work Phone: Magnesiumon 85-70-0603Blsobiapb [Mass/Vol]1.9 mg/dL1.6 - 2.6 mg/dLBON SIOU[facility]ALLS SURGICAL CENTERMyelin Basic Protein, CSFon 81-97-8429Pbthie Basic Protein, CSF3.3 ng/mL0.00 - 5.50 ng/mLBON SIOUX FALLS SURGICAL CENTERPO Glucose Fingerstickon 07-05-2021 Glucose [Mass/Vol]102 mg/dL65 - 105 mg/dLBON [facility]ALL[facility] SURGICAL CENTERGlucose [Mass/Vol]185 mg/kSNqta33 - 105 mg/dLBON [facility] HEALTHInterpretation and review of laboratory resultsAbnormalBON [facility]GICAL CENTERGlucose [Mass/Vol]134 mg/oIOukl42 - 105 mg/dLBON [facility] HEALTHInterpretation and review of laboratory resultsAbnormalRUSSELL COUNTY MEDICAL CENTERGlucose [Mass/Vol]147 mg/xAAuph29 - 105 mg/dLBON [facility] CENTERInterpretation and review of laboratory results AbnormalBON SIOUX FALLS SURGICAL CENTERPotassiumon 07-05-2021 Potassium [Moles/Vol]3.8 mmol/L3.7 - 5.3 mmol/LBON [facility]GICAL CENTERBasic Metabolic Panel w/ Reflex to MGon 90-09-8915Ivhuq gap [Moles/Vol]10 mmol/L9 - 17 mmol/LBON [facility] CENTERCalcium [Mass/Vol]8.0 mg/dLLow8.6 - 10.4 mg/dLBON [facility] CENTERChloride [Moles/Vol]102 mmol/L98 - 107 mmol/LBON [facility] CENTERCO2 [Moles/Vol]26 mmol/L20 - 31 mmol/LBON [facility] CENTERCreatinine [Mass/Vol]0.72 mg/dL0.50 - 0.90 mg/dLBON [facility]ICAL CENTERGFR >60>60 mL/minRIVERSIDE DOCTORS' HOSPITAL WILLIAMSBURGGFR Non- >60>60 mL/minRIVERSIDE DOCTORS' HOSPITAL WILLIAMSBURGGFR/1.73 sq M.predicted MDRD (S/P/Bld) [Vol rate/Area][facility] CENTERGlucose [Mass/Vol]122 mg/sUKgyf67 - 99 mg/dLBON [facility] CENTERInterpretation and review of laboratory resultsAbnormalBON [facility] CENTERPotassium [Moles/Vol]3.5 mmol/LLow3.7 - 5.3 mmol/LBON SECKINDR[facility] LIMASodium [Moles/Vol]138 mmol/L135 - 144 mmol/LBON [facility] MEDICAL CENTERUrea nitrogen (BldV) [Mass/Vol]8 mg/dL6 - 20 mg/dLBON SECCHILDREN'S HOSPITAL OF WISCONSIN– MILWAUKEEC-Reactive Proteinon 20-42-2980BFC [Mass/Vol]191.8 mg/LHigh0.0 - 5.0 mg/LBON [facility] Interpretation and review of laboratory resultsAbnormalRIVERSIDE DOCTORS' [facility]OS[facility] WILLIAMSBURG BON [facility] MEDICAL CENTERCBC with Auto Differentialon 56-92-7764Xwivsqls Eos # 0.18B[facility] LIMAAbsolute Immature Granulocyte0.05BON [facility]INDR[facility] LIMAAbsolute Lymph #2.24BON [facility] HOSPITALAbsolute Thomas #0.55BON [facility] CENTERBasophils (Bld) [#/Vol]10*3/uLBON SECOURS [facility]SON [facility]ORIAL HOSPITALBasophils/100 WBC (Bld)0 %0 - 2 %[facility] WILLIAMSBURGEosinophils/100 WBC (Bld)2 %1 - 4 % R[facility] WILLIAMSBURGHematocrit (Bld) [Volume fraction]22.8 %Low36.3 - 47.1 % [facility] WILLIAMSBURGHemoglobin.gastrointestinal spec 1 Ql (Stl)7.4 g/dLLow 11.9 - 15.1 g/dLBON [facility] CENTERImmature granulocytes/100 WBC (Bld)1 % Uali3AEO [facility] CENTERInterpretation and review of laboratory results AbnormalBON [facility] MEDICAL CENTERLymphocytes/100 WBC (Bld)22 %Low24 - 43 %[facility] HOSPITALH (RBC) [Entitic mass]26.5 pg25.2 - 33.5 pgWELLMONT LONESOME PINE MT. VIEW HOSPITALHC (RBC) [Mass/Vol]32.5 g/dL28.4 - 34.8 g/dLBON SECPREMIER HEALTH UPPER VALLEY MEDICAL CENTERV (RBC) [Entitic vol]81.7 fLLow82.6 - 102.9 fLBON [facility]OURS [facility]ALTH Monocytes/100 WBC (Bld)5 %3 - 12 %[facility] HEALTHNRBC Automated0.00.0 per 100 WBCCARILION STONEWALL JACKSON HOSPITAL HEALTHPlatelet distribution width (Bld) [Ratio]16.9 %High11.8 - 14.4 %BON SECSTATE MENTAL HEALTH FACILITYY HEALTHPlatelet mean volume (Bld) [Entitic vol]9.0 fL8.1 - 13.5 fLCARILION STONEWALL JACKSON HOSPITAL HEALTHPlatelets (Bld) [#/Vol]231 10*3/uLBON SECJORGE [facility] HEALTHRBC (Bld) [#/Vol]2.79 10*6/uLLow3.95 - 5.11 m/uL [facility] SECSA[facility] HEALTHRBC (Bld) [#/Vol]ANISOCYTOSIS PRESENTRIVERSIDE DOCTORS' HOSPITAL WILLIAMSBURGSeg Dhmczafcvow79 %High36 - 65 %[facility] SECSAINT FRANCIS SPECIALTY [facility] HEALTHSegs Absolute7.32 [facility] HEALTHWBC (Bld) [#/Vol]10.4 10*3/uLBON [facility] HEALTHCulture, Blood 1on [id number] identified Cx Nom (Unsp spec)PositiveAbnormInova Women's HospitalBacteria identified Cx Nom (Unsp spec)DIRECT GRAM STAIN FROM BOTTLE: GRAM POSITIVE COCCI IN CLUSTERSRIVERSIDE DOCTORS' HOSPITAL WILLIAMSBURGBacteria identified Cx Nom (Unsp spec)Staphylococcus aureus Detected: mecA/C and MREJ Not Detected Methodology- Polymerase Chain Reaction (PCR)[facility] WILLIAMSBURGBacteria identified Cx Nom (Unsp spec) STAPHYLOCOCCUS AUREUSAbnormInova Women's HospitalBacteria identified Cx Nom (Unsp spec)(NOTE) Direct Gram Stain from bottle and Polymerase Chain Reaction (PCR) results called to and readback by: VIRGIE Joaquin on 07/03/21 at 7:45R[facility] WILLIAMSBURGInterpretation and review of laboratory resultsAbnormInova Women's HospitalSpecial RequestsL HAND 1 MLRIVERSIDE DOCTORS' HOSPITAL WILLIAMSBURGSpecimen Description.BLOODRUSSELL COUNTY MEDICAL CENTERMISCELLANEOUS TESTINGon [id number] Out ReportPERFORMED AT DOUGL[facility] COUNTY [facility]IAL HOSPITALTest NameMAYO ENC2 CSFRUSSELL COUNTY MEDICAL CENTERMRI CERVICAL SPINE W WO CONTRASTon [id number] Study observation (narrative)[facility] Work Phone: Magnesiumon [id number] [Mass/Vol]1.8 mg/dL1.6 - 2.6 mg/dLBON SIOUX FALLS SURGICAL CENTERPOC Glucose Fingerstickon [id number] [Mass/Vol]113 mg/tBXren54 - 105 mg/dLBON [facility]MA MEDICAL CENTERInterpretation and review of laboratory resultsAbnormalRUSSELL COUNTY MEDICAL CENTERGlucose [Mass/Vol]188 mg/zIIamd53 - 105 mg/dLBON [facility] HEALTHInterpretation and review of laboratory results AbnormalBON SIOUX FALLS SURGICAL CENTERGlucose [Mass/Vol]118 mg/xUZawd72 - 105 mg/dLBON [facility]MA MEDICAL CENTERInterpretation and review of laboratory resultsAbnormRiverside Health System Glucose [Mass/Vol]135 mg/nIRtqw65 - 105 mg/dLBON [facility] Interpretation and review of laboratory resultsAbnoBrookings Health SystemBasic Metabolic Panel w/ Reflex to MGon 33-70-3618Swpkb gap [Moles/Vol]11 mmol/L9 - 17 mmol/LBON [facility]ITAL HEALTHCalcium [Mass/Vol] 8.3 mg/dLLow8.6 - 10.4 mg/dLBON METRO[facility]ALTH PARMA MEDICAL CENTERChloride [Moles/Vol]98 mmol/L98 - 107 mmol/LBON [facility] PARMA MEDICAL CENTERCO2 [Moles/Vol]25 mmol/L20 - 31 mmol/LBON [facility]MA MEDICAL CENTERCreatinine [Mass/Vol]0.81 mg/dL0.50 - 0.90 mg/dL [facility] WILLIAMSBURGGFR >60>60 mL/minCARILION STONEWALL JACKSON [facility]PITAL HEALTHGFR Non->60>60 mL/minRIVERSIDE DOCTORS' HOSPITAL WILLIAMSBURGGFR/1.73 sq M.predicted MDRD (S/P/Bld) [Vol rate/Area][facility] WILLIAMSBURGGlucose [Mass/Vol]108 mg/nWFvvj37 - 99 mg/dLBON MET[facility] PARMA MEDICAL CENTERInterpretation and review of laboratory resultsAbnormalRIVERSIDE DOCTORS' HOSPITAL WILLIAMSBURGPotassium [Moles/Vol]2.9 mmol/LCritically low3.7 - 5.3 mmol/LBON [facility] Sodium [Moles/Vol]134 mmol/HUuu767 - 144 mmol/LBON [facility] MEDICAL CENTERUrea nitrogen (BldV) [Mass/Vol]7 mg/dL6 - 20 mg/dLBON SIOUX FALLS SURGICAL CENTERC-Reactive Proteinon 93-71-1089PBT [Mass/Vol]166.3 mg/LHigh0.0 - 5.0 mg/LBON [facility] CENTERInterpretation and review of laboratory results AbnormalBON SIOUX FALLS SURGICAL CENTERCBC with Auto Differentialon 72-92-7357Gantjmpr Eos #0.19BON [facility] CENTERAbsolute Immature Granulocyte0.09BON [facility] CENTERAbsolute Lymph #2.40BON [facility] CENTERAbsolute Thomas #0.64BON [facility] MEDICAL CENTERBasophils (Bld) [#/Vol] 10*3/uLBON [facility]ICAL CENTERBasophils/100 WBC (Bld)0 %0 - 2 %[facility]GEosinophils/100 WBC (Bld)1 %1 - 4 %[facility] Hematocrit (Bld) [Volume fraction]26.1 %Low36.3 - 47.1 %[facility] Hemoglobin.gastrointestinal spec 1 Ql (Stl)8.4 g/dLLow11.9 - 15.1 g/dLBON [facility] MEDICAL CENTERImmature granulocytes/100 WBC (Bld)1 %Okox3WTJRIVERSIDE DOCTORS' HOSPITAL WILLIAMSBURGInterpretation and review of laboratory resultsAbnormalRIVERSIDE DOCTORS' HOSPITAL WILLIAMSBURGLymphocytes/100 WBC (Bld)18 %Low24 - 43 %[facility]ITALH (RBC) [Entitic mass]26.1 pg25.2 - 33.5 pgWELLMONT LONESOME PINE MT. VIEW HOSPITALHC (RBC) [Mass/Vol] 32.2 g/dL28.4 - 34.8 g/dLBON [facility] MEDICAL CENTERMCV (RBC) [Entitic vol]81.1 fL Low82.6 - 102.9 fLRIVERSIDE DOCTORS' HOSPITAL WILLIAMSBURGMonocytes/100 WBC (Bld)5 %3 - 12 %[facility] WILLIAMSBURGNRBC Automated0.00.0 per 100 WBCRIVERSIDE DOCTORS' HOSPITAL WILL[facility]SB[facility]G Platelet distribution width (Bld) [Ratio]16.5 %High11.8 - 14.4 %BON [facility] MEDICAL CENTERPlatelet mean volume (Bld) [Entitic vol]8.8 fL8.1 - 13.5 fLRIVERSIDE DOCTORS' HOSPITAL WILLIAMSBURGPlatelets (Bld) [#/Vol]261 10*3/uLRIVERSIDE DOCTORS' HOSPITAL WILL[facility]SBURG RBC (Bld) [#/Vol]3.22 10*6/uLLow3.95 - 5.11 m/uLRIVERSIDE DOCTORS' HOSPITAL WILLIAMSBURGRBC (Bld) [#/Vol]ANISOCYTOSIS PRESENTPoplar Springs Hospital Izzhqteaxhr57 %High 36 - 65 %[facility] WILLIAMSBURGSegs Aucotsfz32.31HighRIVERSIDE DOCTORS' [facility] WBC (Bld) [#/Vol]13.6 10*3/uLUVA Health University HospitalCulture, Blood 1on 96-91-6639Rnvanocm identified Cx Nom (Unsp spec) PositiveAbnormInova Women's HospitalBacteria identified Cx Nom (Unsp spec) DIRECT GRAM STAIN FROM BOTTLE: GRAM POSITIVE COCCI IN [facility]PITALBacteria identified Cx Nom (Unsp spec)STAPHYLOCOCCUS AUREUS This isolate is methicillin susceptible.[facility] HospitalBacteria identified Cx Nom (Unsp spec)(NOTE) Direct Gram Stain from bottle result called to and read back by: VIRGIE Noland at 2200 on 07.01.2021ON [facility] Interpretation and review of laboratory resultsAbnoChesapeake Regional Medical Center Specimen Description.[facility] HOSPITALECHO Complete 2D W Doppler W Coloron 36-56-7264EYAQ STV CPACARILION [facility]LL [facility] Work Phone: eCHO Complete 2D W Doppler W ColorOrdered By: Sintia Salazar on [id number] [facility] [employer] Work Phone: fl MODIFIED BARIUM SWALLOW W VIDEOon 43-84-2865ZAJCHUMBOLDT GENERAL HOSPITAL Work Phone: radiology Study observation (narrative)[facility]ITALB[facility] [email or web address] Phone: fl MODIFIED BARIUM SWALLOW W VIDEOOrdered By: Rufus Burnette on [id number] [facility] [email or web address] Phone: Hemoglobin and Hematocriton 02-59-6503Tjqbvisggb (Bld) [Volume fraction]24.2 %Low36.3 - 47.1 %[facility] [employer] Hemoglobin.gastrointestinal spec 1 Ql (Stl)7.8 g/dLLow11.9 - 15.1 g/dLBON [facility] GrovoInterpretation and review of laboratory resultsAbnormRiverside Health SystemHerpes simplex virus PCRon 80-65-4634TUL, PCRNot detectedB[facility] Magnesiumon 45-82-6105Fzhzkimrb [Mass/Vol]2.0 mg/dL1.6 - 2.6 mg/dLBON SIOUX FALLS SURGICAL CENTERNM BONE SCAN 3 PHASEon 38-27-6279KQFHHUMBOLDT GENERAL HOSPITAL Work Phone: radiology Study observation (narrative)[facility] [employer] Work Phone: nm BONE SCAN 3 PHASEOrdered By: Joanne Duke on 17-44-8078FZZ [facility] [employer] Work Phone: poc Glucose Fingerstickon 62-40-7305Ooqtjeb [Mass/Vol] 146 mg/hNIgxo54 - 105 mg/dLBON [facility] GrovoInterpretation and review of laboratory resultsAbnormRiverside Health System Glucose [Mass/Vol]108 mg/kDOskq65 - 105 mg/dLBON [facility] Interpretation and review of laboratory resultsAbnormalSENTARA MARTHA JEFFERSON HOSPITALGlucose [Mass/Vol]168 mg/oDBdyf16 - 105 mg/dLBON [facility] CENTERInterpretation and review of laboratory resultsAbnormalRUSSELL COUNTY MEDICAL CENTERGlucose [Mass/Vol]111 mg/dGRqwx27 - 105 mg/dLBON [facility]ICAL CENTERInterpretation and review of laboratory results AbnormalBON SIOUX FALLS SURGICAL CENTERPotassiumon 07-03-2021 Interpretation and review of laboratory resultsAbnormInova Women's Hospital Potassium [Moles/Vol]3.4 mmol/LLow3.7 - 5.3 mmol/LBON [facility]ALLS SURGICAL CENTERXR CERVICAL SPINE FLEXION AND EXTENSIONon 61-84-4788FMCF RIS CONSOLIDATEDMHPN RIS [facility] Work Phone: radiology Study observation (narrative)[facility]PITALB[facility] [employer] Work Phone: XR CERVICAL SPINE FLEXION AND EXTENSIONOrdered By: Chanda Garland on [id number] [facility] CENTERBumpTop MERCY HOSPITALNQ [employer] Work Phone: Basic Metabolic Panel w/ Reflex to MGon 07-02-2021 Anion gap [Moles/Vol]11 mmol/L9 - 17 mmol/LBON [facility] CENTERCalcium [Mass/Vol]8.0 mg/dLLow8.6 - 10.4 mg/dLBON [facility]ICAL CENTERChloride [Moles/Vol]98 mmol/L98 - 107 mmol/LBON [facility] CENTERCO2 [Moles/Vol]25 mmol/L20 - 31 mmol/LBON [facility] CENTERCreatinine [Mass/Vol]0.66 mg/dL0.50 - 0.90 mg/dLBON CHILDREN'[facility]OS[facility] SAN DIEGONQ Mobile Inc.GFR >60>60 mL/minRIVERSIDE DOCTORS' HOSPITAL WILLIAMSBURGGFR Non->60>60 mL/minCARILION ST[facility]WALL [facility]ACK[facility] [employer] GFR/1.73 sq M.predicted MDRD (S/P/Bld) [Vol rate/Area][facility] Glucose [Mass/Vol]67 mg/dLLow70 - 99 mg/dLBON [facility] CENTERInterpretation and review of laboratory resultsAbnormalRIVERSIDE DOCTORS' HOSPITAL WILLIAMSBURGPotassium [Moles/Vol]2.9 mmol/LCritically low3.7 - 5.3 mmol/LBON [facility] Sodium [Moles/Vol]134 mmol/KOer481 - 144 mmol/LBON [facility] CENTERUrea nitrogen (BldV) [Mass/Vol]9 mg/dL6 - 20 mg/dLBON SIOUX FALLS SURGICAL CENTERC-Reactive Proteinon 11-65-7546NNJ [Mass/Vol]61.4 mg/LHigh0.0 - 5.0 mg/LBON [facility] CENTERInterpretation and review of laboratory results AbnormalBON SIOUX FALLS SURGICAL CENTERCBC with Auto Differentialon 89-00-1253Ozncbbej Eos #0.36BON [facility] CENTERAbsolute Immature Granulocyte0.11BON [facility]ENTERAbsolute Lymph #3.45BON [facility]ENTERAbsolute Thomas #0.69BON [facility] CENTERBasophils (Bld) [#/Vol] 10*3/uLBON [facility]ICAL CENTERBasophils/100 WBC (Bld)0 %0 - 2 %[facility]IAMSBURGEosinophils/100 WBC (Bld)2 %1 - 4 %[facility] Hematocrit (Bld) [Volume fraction]28.2 %Low36.3 - 47.1 %[facility] Hemoglobin.gastrointestinal spec 1 Ql (Stl)9.0 g/dLLow11.9 - 15.1 g/dLBON [facility] CENTERImmature granulocytes/100 WBC (Bld)1 %Dpuh7GCLRIVERSIDE DOCTORS' HOSPITAL WILLIAMSBURGInterpretation and review of laboratory resultsAbnormalRIVERSIDE DOCTORS' HOSPITAL WILLIAMSBURGLymphocytes/100 WBC (Bld)21 %Low24 - 43 %[facility]OSPITALH (RBC) [Entitic mass]25.9 pg25.2 - 33.5 pgWELLMONT LONESOME PINE MT. VIEW HOSPITALHC (RBC) [Mass/Vol] 31.9 g/dL28.4 - 34.8 g/dLBON [facility] CENTERMCV (RBC) [Entitic vol]81.3 fL Low82.6 - 102.9 fLRIVERSIDE DOCTORS' HOSPITAL WILLIAMSBURGMonocytes/100 WBC (Bld)4 %3 - 12 %[facility] WILLIAMSBURGNRBC Automated0.00.0 per 100 WBCRIVERSIDE DOCTORS' HOSPITAL WILL[facility]SBURG Platelet distribution width (Bld) [Ratio]16.3 %High11.8 - 14.4 %BON [facility] CENTERPlatelet mean volume (Bld) [Entitic vol]8.8 fL8.1 - 13.5 fLRIVERSIDE DOCTORS' HOSPITAL WILLIAMSBURGPlatelets (Bld) [#/Vol]299 10*3/uLRIVERSIDE DOCTORS' HOSPITAL WILL[facility]URG RBC (Bld) [#/Vol]3.47 10*6/uLLow3.95 - 5.11 m/uLRIVERSIDE DOCTORS' HOSPITAL WILLIAMSBURGRBC (Bld) [#/Vol]ANISOCYTOSIS PRESENTRIVERSIDE DOCTORS' HOSPITAL WILLIAMSBURGSeg Xzeukajohza50 %High 36 - 65 %BON [facility] CENTERSegs Fhcqpoax39.06HighRIVERSIDE DOCTORS' [facility] WBC (Bld) [#/Vol]16.7 10*3/uLHighRIVERSIDE [facility]ITAL HEALTHCulture, Blood 1on 19-77-1341Khifssbl identified Cx Nom (Unsp spec) PositiveAbnormInova Women's HospitalBacteria identified Cx Nom (Unsp spec) DIRECT GRAM STAIN FROM BOTTLE: GRAM POSITIVE COCCI IN CLUSTERSRIVERSIDE DOCTORS' HOSPITAL WILLIAMSBURGBacteria identified Cx Nom (Unsp spec)STAPHYLOCOCCUS AUREUS This isolate is methicillin susceptible.AbnormalRIVERSIDE DOCTORS' HOSPITAL WILLIAMSBURGBacteria identified Cx Nom (Unsp spec)(NOTE) Direct Gram Stain from bottle result called to and read back by: VIRGIE Ferraro AT 2058 ON 06/30/21R[facility]IDE [facility] WILLIAMSBURGInterpretation and review of laboratory resultsAbnormalRIVERSIDE DOCTORS' [facility]OSPITAL WILLIAMSBURGSpecial RequestsLT HAND 9MLRIVERSIDE DOCTORS' HOSPITAL WILLIAMSBURGSpecimen Description.BLOODRUSSELL COUNTY MEDICAL CENTERHemoglobin and Hematocriton 07-24-7210Ddeukmhsnf (Bld) [Volume fraction]24.8 %Low36.3 - 47.1 %[facility] Hemoglobin.gastrointestinal spec 1 Ql (Stl)8.1 g/dLLow11.9 - 15.1 g/dLBON [facility] CENTERInterpretation and review of laboratory resultsAbnormalRUSSELL COUNTY MEDICAL CENTERHematocrit (Bld) [Volume fraction] 29.0 %Low36.3 - 47.1 %[facility] WILLIAMSBURGHemoglobin.gastrointestinal spec 1 Ql (Stl)9.1 g/dLLow11.9 - 15.1 g/dLBON [facility] CENTERInterpretation and review of laboratory resultsAbnormalRUSSELL COUNTY MEDICAL CENTERMagnesiumon 54-32-2941Tacotrpmt [Mass/Vol]2.3 mg/dL1.6 - 2.6 mg/dLBON SIOUX FALLS SURGICAL CENTERPOC Glucose Fingerstickon 07-02-2021 Glucose [Mass/Vol]122 mg/kEGdvj62 - 105 mg/dLBON [facility] Interpretation and review of laboratory resultsAbnormalCARILION CLINIC HEALTHGlucose [Mass/Vol]105 mg/dL65 - 105 mg/dLBON [facility] HEALTHGlucose [Mass/Vol]113 mg/sMZxtr86 - 105 mg/dLBON [facility] HEALTHInterpretation and review of laboratory results AbnormalBON SI[facility]X FALLS SURGICAL CENTERGlucose [Mass/Vol]78 mg/dL65 - 105 mg/dLBON [facility] HEALTHGlucose [Mass/Vol]111 mg/nCHtpy25 - 105 mg/dLBON [facility] HEALTHInterpretation and review of laboratory resultsAbnormalRIVERSIDE [facility] HEALTHPotassiumon 73-58-8317Vsupehhouiqunc and review of laboratory results AbnormalCARILION [facility] HEALTHPotassium [Moles/Vol]3.5 mmol/LLow3.7 - 5.3 mmol/LBON [facility] HEALTHInterpretation and review of laboratory resultsAbnormalCARILION [facility] HEALTHPotassium [Moles/Vol]3.5 mmol/LLow3.7 - 5.3 mmol/LBON [facility] CENTERBasic Metabolic Panel w/ Reflex to MGon 57-63-3922Hzedg gap [Moles/Vol]10 mmol/L9 - 17 mmol/LBON [facility] CENTERCalcium [Mass/Vol]8.2 mg/dLLow8.6 - 10.4 mg/dLBON [facility] CENTERChloride [Moles/Vol]102 mmol/L98 - 107 mmol/LBON [facility] CENTERCO2 [Moles/Vol]25 mmol/L20 - 31 mmol/LBON [facility] Creatinine [Mass/Vol]0.97 mg/dLHigh0.50 - 0.90 mg/dLBON [facility] CENTERGFR >60>60 mL/minRIVERSIDE DOCTORS' HOSPITAL WILLIAMSBURGGFR Non- Sqtnqqyu24 mL/minLow>60BON [facility] CENTERGFR/1.73 sq M.predicted MDRD (S/P/Bld) [Vol rate/Area][facility]IAMSBURGGlucose [Mass/Vol]117 mg/gPBhfc92 - 99 mg/dL [facility] WILLIAMSBURGInterpretation and review of laboratory resultsAbnormal [facility] WILLIAMSBURGPotassium [Moles/Vol]2.2 mmol/LCritically low3.7 - 5.3 mmol/LBON [facility] CENTERSodium [Moles/Vol]137 mmol/L135 - 144 mmol/LBON [facility] CENTERUrea nitrogen (BldV) [Mass/Vol]18 mg/dL6 - 20 mg/dLBON SIOUX FALLS SURGICAL CENTERC-Reactive Proteinon 57-15-4596ZAI [Mass/Vol]38.5 mg/LHigh0.0 - 5.0 mg/LBON [facility] CENTERInterpretation and review of laboratory resultsAbnormalBON SIOUX FALLS SURGICAL CENTERCBC with Auto Differentialon 92-23-4189Jagxxyao Eos #0.00[facility]ITALY [facility]ENTERAbsolute Immature Granulocyte0.00[facility]ITALAbsolute Lymph # 2.14B[facility] HOSPITALY HEALTHAbsolute Thomas #0.76BON SECKINDRED HOSPITAL LIMABasophils (Bld) [#/Vol]0.00 10*3/uLBON SECOURS WILSON [facility]IAL HOSPITALBasophils/100 WBC (Bld)0 %0 - 2 %B[facility] CENTEREosinophils/100 WBC (Bld)0 %Low1 - 4 %B[facility] CENTERHematocrit (Bld) [Volume fraction]28.4 %Low36.3 - 47.1 %[facility] CENTERHemoglobin.gastrointestinal spec 1 Ql (Stl)9.0 g/dLLow11.9 - 15.1 g/dLBON [facility] CENTERImmature granulocytes/100 WBC (Bld)0 %0BON [facility]ENTERInterpretation and review of laboratory resultsAbnormalBON [facility] MEDICAL CENTERLymphocytes/100 WBC (Bld)17 %Low24 - 44 %[facility]OSPITALH (RBC) [Entitic mass]26.2 pg25.2 - 33.5 pgBON [facility]OSPITALHC (RBC) [Mass/Vol]31.7 g/dL28.4 - 34.8 g/dLBON SECPREMIER HEALTH UPPER VALLEY MEDICAL CENTERV (RBC) [Entitic vol]82.8 fL82.6 - 102.9 fLRIVERSIDE DOCTORS' HOSPITAL WILLIAMSBURGMonocytes/100 WBC (Bld)6 %1 - 7 %[facility] WILLIAMSBURGMorphology Malachi (Bld) [Interp]ANISOCYTOSIS PRESENTBON [facility] MEDICAL CENTERNRBC Automated0.00.0 per 100 WBCRIVERSIDE DOCTORS' HOSPITAL [facility]G Platelet distribution width (Bld) [Ratio]16.2 %High11.8 - 14.4 %[facility] WILLIAMSBURGPlatelet mean volume (Bld) [Entitic vol]8.8 fL8.1 - 13.5 fLBON SECSAINT [facility]ANC[facility] HEALTHPlatelets (Bld) [#/Vol]284 10*3/uLBON [facility] RBC (Bld) [#/Vol]3.43 10*6/uLLow3.95 - 5.11 m/uLBON [facility]ICAL CENTERSeg Lscotmtwcox79 %High36 - 66 %BON SECKINDRED HOSPITAL LIMASegs Absolute9.70HighBON [facility]MA MEDICAL CENTERWBC (Bld) [#/Vol]12.6 10*3/uLHighBON SIOUX FALLS SURGICAL CENTERCulture, CSFon 40-01-2671Wtjcfdlg identified Cx Nom (Unsp spec)NO GROWTH 3 DAYSBON [facility]ICAL CENTERDirect ExamNO NEUTROPHILS SEENBON [facility] CENTERDirect ExamNO ORGANISMS SEENBON [facility] CENTERDirect ExamGram stain made from cytocentrifuged specimen. Organisms and cells will be concentrated.[facility] HEALTHSpecimen Description.[facility] CENTERHemoglobin and Hematocriton 54-71-5612Ruhworpsgx (Bld) [Volume fraction]27.2 %Low36.3 - 47.1 %[facility] Hemoglobin.gastrointestinal spec 1 Ql (Stl)8.8 g/dLLow11.9 - 15.1 g/dLBON [facility] CENTERInterpretation and review of laboratory resultsAbnormalRUSSELL COUNTY MEDICAL CENTERHematocrit (Bld) [Volume fraction] 26.7 %Low36.3 - 47.1 %[facility] WILLIAMSBURGHemoglobin.gastrointestinal spec 1 Ql (Stl)8.6 g/dLLow11.9 - 15.1 g/dLBON [facility] CENTERInterpretation and review of laboratory resultsAbnormalRUSSELL COUNTY MEDICAL CENTERLyme Disease AB, CSFon 07-01-2021 burgdorferi Ab,CSF0.02<=0.99 LIVBON SIOUX FALLS SURGICAL CENTERMagnesiumon 22-30-6882Baulbmdep [Mass/Vol]1.9 mg/dL1.6 - 2.6 mg/dLBON [facility] HEALTHMagnesium [Mass/Vol]2.0 mg/dL1.6 - 2.6 mg/dLBON [facility]X FALLS SURGICAL CENTEROligoclonal Bandson 84-84-3161INA Isoelectric Focusing InterpretationSee NoteRIVERSIDE DOCTORS' HOSPITAL WILLIAMSBURGOligo BandsNegativeBON [facility] MEDICAL CENTEROligoclonal Bands NumberMatchingBON SIOUX FALLS SURGICAL CENTERPOC Glucose Fingerstickon 24-80-4494Zjwvnts [Mass/Vol]84 mg/dL65 - 105 mg/dLBON [facility] HEALTHGlucose [Mass/Vol]104 mg/dL65 - 105 mg/dLBON [facility]ALL[facility] CENTERGlucose [Mass/Vol]65 mg/dL65 - 105 mg/dLB[facility] Glucose [Mass/Vol]107 mg/uTTzzt94 - 105 mg/dLBON [facility] Interpretation and review of laboratory resultsAbnormalRIVERSIDE DO[facility]' [facility] BON [facility] CENTERGlucose [Mass/Vol]115 mg/dZRxiw72 - 105 mg/dLBON [facility] CENTERInterpretation and review of laboratory resultsAbnormalRUSSELL COUNTY MEDICAL CENTERPotassiumon 34-01-5493Dfisiutsgtcyyt and review of laboratory resultsAbnormInova Women's HospitalPotassium [Moles/Vol]2.5 mmol/LCritically low3.7 - 5.3 mmol/LBON [facility]ALLS SURGICAL CENTERInterpretation and review of laboratory resultsAbnormInova Women's HospitalPotassium [Moles/Vol]2.4 mmol/LCritically low3.7 - 5.3 mmol/LBON [facility] HEALTHQuantiferon TB Goldon 43-56-6590PeeryoIPNWZ Mitogen1.11IU/mLCARILION STONEWALL JACKSON HOSPITAL HEALTHQuantiFERON Nil 0.02IU/mLCARILION STONEWALL JACKSON HOSPITAL HEALTHQuantiferon TB Minus NILNegativeNegativeBON [facility] CENTERQuantiferon TB1 Minus NIL0.00[facility] Quantiferon TB2 Minus NIL0.00[facility] West Nile Virus, CSFon 99-26-1125KTLW NILE AB IGG CSF0.19<=1.29 IVBON [facility] NILE AB IGM CSF0<=0.89 IVRUSSELL COUNTY MEDICAL CENTERCulture, Blood 1on 29-54-9481Qtioeadl identified Cx Nom (Unsp spec) PositiveAbnormInova Women's HospitalBacteria identified Cx Nom (Unsp spec) DIRECT GRAM STAIN FROM BOTTLE: GRAM POSITIVE COCCI IN [facility]ITALBacteria identified Cx Nom (Unsp spec)Staphylococcus aureus Detected: mecA/C and MREJ Not DetectedBON [facility]ICAL CENTERBacteria identified Cx Nom (Unsp spec)STAPHYLOCOCCUS AUREUS This isolate is methicillin susceptible. AbnormalCARILION STONEWALL JACKSON HOSPITAL HEALTHBacteria identified Cx Nom (Unsp spec)(NOTE) Direct Gram Stain from bottle and Polymerase Chain Reaction (PCR) results called to and readback by: Dino Casillas at 0248 on 06/29/2021.[facility] Special RequestsRT FA 3 MLRIVERSIDE DOCTORS' HOSPITAL WILLIAMSBURGSpecimen Description.BLOODRIVERSIDE DOCTORS' HOSPITAL WILLIAMSBURGCulture, Blood 2on 32-51-0335Elhyinra identified Cx Nom (Unsp spec)PositiveAbnormalRIVERSIDE DOCTORS' HOSPITAL WILLIAMSBURGBacteria identified Cx Nom (Unsp spec)DIRECT GRAM STAIN FROM BOTTLE: GRAM POSITIVE COCCI IN [facility]PITALBacteria identified Cx Nom (Unsp spec)STAPHYLOCOCCUS AUREUS For susceptibility, refer to previous culture.AbnormalRIVERSIDE DOCTORS' [facility] Bacteria identified Cx Nom (Unsp spec)(NOTE) Direct Gram Stain from bottle result called to and read back by: Dino Casillas at 0245 on 06/29/2021.[facility]IAMSBURGInterpretation and review of laboratory resultsAbnormInova Women's HospitalSpecial RequestsLEFT HAND 1 [facility]PITALSpecimen Description.[facility] HOSPITALHemoglobin and Hematocriton 78-32-1423Tpvmfirvgl (Bld) [Volume fraction]29.3 %Low36.3 - 47.1 % [facility] WILLIAMSBURGHemoglobin.gastrointestinal spec 1 Ql (Stl)9.4 g/dLLow 11.9 - 15.1 g/dLBON [facility] CENTERInterpretation and review of laboratory resultsAbnormRiverside Health SystemPO Glucose Fingerstickon 29-04-6191Nhasvhz [Mass/Vol]173 mg/kMEeai20 - 105 mg/dLBON [facility] CENTERInterpretation and review of laboratory resultsAbnormRiverside Health SystemGlucose [Mass/Vol]182 mg/xYWpmh90 - 105 mg/dLBON [facility] HEALTHInterpretation and review of laboratory results AbnormalBON SECCHILDREN'S HOSPITAL OF W[facility]CON[facility]– MILWAUKEEGlucose [Mass/Vol]171 mg/sNBiro37 - 105 mg/dLBON [facility] CENTERInterpretation and review of laboratory resultsAbnormalBON SECHEART [facility] HEALTHXR FOOT LEFT (MIN 3 VIEWS)on 95-49-0774ACNB RIS CONSOLIDATEDPN RIS CONSOLIDATED [facility] Work Phone: XR FOOT LEFT (MIN 3 VIEWS)Ordered By: Enedelia Garcia on 71-58-6941KPP CHILDREN'S HOSP[facility] OF SAN DIEGONQ [employer] Work Phone: Acetaminophen Levelon 36-12-6155Cjvjblovotfqs Level<5 Low10 - 30 ug/mLMer HealthAmmoniaon 80-62-9023Tzfcoez (P) [Moles/Vol]12 umol/L 11 - 51 umol/LMercy Regency Hospital CompanyCBC with Auto Differentialon 06-28-2021 Absolute Bands #0.43Mer HealthAbsolute Eos #Mercy HealthAbsolute Lymph #1.51 Mercy HealthAbsolute Thomas #1.08HighBethesda North HospitalBands2 %0 - 10 %[facility] Basophils (Bld) [#/Vol]0 - 2 %MercUnreal Brands HealthBasophils AbsoluteBellevue Hospital Health Eosinophils %0 - 5 %Mercy HealthHematocrit (Bld) [Volume fraction]30.9 %Low36 - 46 %MercRiverside Walter Reed HospitalHemoglobin.gastrointestinal spec 1 Ql (Stl)10.1 g/dLLow12.0 - 16.0 g/dLBethesda North HospitalInterpretation and review of laboratory resultsAbnormal [facility] HospitalLymphocytes/100 WBC (Bld)7 %Low15 - 40 %MercUpper Valley Medical CenterH (RBC) [Entitic mass]26.2 pg26 - 34 pgMerSelect Medical Specialty Hospital - ColumbusHC (RBC) [Mass/Vol]32.6 g/dL31 - 37 g/dLKettering Health Main CampusV (RBC) [Entitic vol]80.5 fL80 - 100 fLBethesda North Hospital Monocytes/100 WBC (Bld)5 %4 - 8 %MercRiverside Walter Reed HospitalMorphology Malachi (Bld) [Interp]Manual Differential PerformedBethesda North HospitalPlatelet distribution width (Bld) [Ratio]17.1 %High12.1 - 15.2 %[facility] HealthPlatelets (Bld) [#/Vol]537 10*3/uLHighBethesda North HospitalRBC (Bld) [#/Vol]3.83 10*6/uLLow4.0 - 5.2 m/uLBethesda North HospitalSegmented neutrophils/100 WBC (Bld)86 %High47 - 75 %[facility] HospitalSegs Dmtqusxi17.48High [facility] HospitalWBC (Bld) [#/Vol]21.5 10*3/uLCritically [facility] CKon [id number] [Catalytic activity/Vol]63 U/L26 - 192 U/LMercy HealthCOVID- 19, Rapidon [id number]-CoV-2 (COVID-19) RNA CAL+probe Ql (Unsp spec)Not detectedNot [facility] Children's Hospitalment on above: Rapid NAAT: The specimen is [...] management decisions. Fact sheet for Healthcare Providers: https://www.fda.gov/media/890633/download Fact sheet for Patients: https://www.fda.gov/media/835463/download Methodology: Isothermal Nucleic Acid Amplification Specimen Description.NASOPHARYNGEAL SWABGrant Regional Health CenterCT ABDOMEN PELVIS W IV CONTRAST Additional Contrast? Noneon 06-28-2021 1. No evidence of bowel obstruction. 2. Normal appendix. 3. Status post cholecystectomy. PN RIS CONSOLIDATEDEXAMINATION: CT ABDOMEN PELVIS W IV CONTRAST, 06/28/2021 [...] lesions. Laminectomy changes are noted at L4. Charly Lee MD - 06/28/2021 EXAMINATION: CT ABDOMEN PELVIS [...] 2. Normal appendix. 3. Status post cholecystectomy. [employer] Phone: radiology Study observation (narrative)[employer] Phone: cT ABDOMEN PELVIS W IV CONTRAST Additional Contrast? NoneOrdered By: Charly Mendoza on [id number] Phone: ct Head WO Contraston . Poorly diagnostic examination due to patient motion. 2. No gross evidence of hemorrhage or mass effect. A telephone call regarding the findings in examination and limitations the study was made to and acknowledged by Dr. Boothe in the emergency department at 4:55 AM on 06/28/2021. [facility] CONSOLIDATEDINDICATION: 56 years old; Female. Change in mental [...] evaluated in the present study. OTHER: None. [facility] SandraKike campuzano - 06/28/2021 INDICATION: 56 years old; Female. [...] emergency department at 4:55 AM on 06/28/2021. [employer] Phone: radiology Study observation (narrative)[employer] Phone: cT Head WO ContrastOrdered By: Kike Maguire on [id number] Phone: comprehensive Metabolic Panel w/ Reflex to MGon 62-03-1298Ksbxreg [Mass/Vol]4 g/dL3.5 - 5.2 g/dLMer HealthALP (Bld) [Catalytic activity/Vol]290 U/LHigh35 - 104 U/LMercy HealthALT [Catalytic activity/Vol]25 U/L5 - 33 U/LMercy HealthAnion gap [Moles/Vol]16 mmol/L9 - 17 mmol/LMercy Health AST [Catalytic activity/Vol]16 U/L<32Mercy HealthBilirubin [Mass/Vol]0.45 mg/dL 0.30 - 1.20 mg/dLMercy HealthCalcium [Mass/Vol]9.9 mg/dL8.6 - 10.4 mg/dLMercy HealthChloride [Moles/Vol]95 mmol/LLow98 - 107 mmol/LMercy HealthCO2 [Moles/Vol] 27 mmol/L20 - 31 mmol/LMercy HealthCreatinine [Mass/Vol]0.89 mg/dL0.50 - 0.90 mg/dLMercy HealthFree PSA/Total PSA [Mass fraction]8.5 g/dLHigh6.4 - 8.3 g/dL [facility] HealthGFR >60>60 mL/minMer HealthGFR Non->60>60 mL/minBellevue Hospital HealthGFR/1.73 sq M.predicted MDRD (S/P/Bld) [Vol rate/Area][facility] HospitalComment on above:Average GFR for 50-59 years old: 93 mL/min/1.73sq m Chronic Kidney Disease: <60 mL/min/1.73sq m Kidney failure: <15 mL/min/1.73sq m eGFR calculated using average adult body mass. Additional eGFR calculator available at: http://www.[employer]/multiple_crcl_2012.htm Glucose [Mass/Vol]268 mg/rIJsqo14 - 99 mg/dLBellevue Hospital HealthInterpretation and review of laboratory resultsAbnoNovant Health Pender Medical Center HealthPotassium [Moles/Vol]3.4 mmol/L Low3.7 - 5.3 mmol/LMercy HealthSodium [Moles/Vol]138 mmol/L135 - 144 mmol/LMercy HealthUrea nitrogen (BldV) [Mass/Vol]25 mg/dLHigh6 - 20 mg/dLBellevue Hospital HealthUrea nitrogen/Creatinine (Bld) [Mass ratio]28HighMarion Hospitalcy HealthEthanolon 10-96-8243Frtodfh [Mass/Vol]mg/dL<10 mg/dLBellevue Hospital HealthEthanol percent<0.010% [facility] HospitalLactic Acidon 65-81-6177Ntobxdh [Moles/Vol]1.6 mmol/L0.5 - 2.2 mmol/LMercy [facility] HealthLipaseon 00-85-6228Fqhxro [Catalytic activity/Vol] 30 U/L13 - 60 U/LMercy HealthMagnesiumon 35-28-3572Kwdfpiklr [Mass/Vol]1.9 mg/dL 1.6 - 2.6 mg/dLMarietta Osteopathic Clinic HealthMicroscopic Urinalysison 06-28-2021-[facility] HospitalEpithelial Cells UA0 TO 2/HPFMerForks Community HospitalRBC, UA5 TO 10MerSelect [facility]ty [facility] HealthNo Panel Informationon 42-82-1435Noanbwxihnfmce and review of laboratory resultsAbnormalMercy HealthMercy HealthMercy HealthSalicylateon 06-28-2021 Salicylate Lvl<1Low3 - 10 mg/dLMercy HealthUrinalysison 93-45-7402Jnijnzjua UrineNegativeNEGATIVEMercy HealthColor, UAYellowYellowMercy HealthGlucose, Ur 1000 mg/dLAbnormalNEGATIVEMercy HealthInterpretation and review of laboratory resultsAbnormalMercy HealthKetones Ql (U)SMALLAbnormalNEGATIVEMercy Health Leukocyte esterase Test strip Ql (U)NegativeNEGATIVEMercy HealthNitrite, Urine NegativeNEGATIVEMercy HealthpH, UA7.0Mercy HealthProtein, UA2+AbnormalNEGATIVE Mercy HealthSpecific [place], UA1.010Mercy HealthTurbidity UAHazyAbnormalClear Mercy HealthUrinalysis CommentsMercy HealthUrine Hgb1+AbnormalNEGATIVEMercy HealthUrobilinogen, UrineNormalNormalMercy HealthMercy HealthUrine Drug Screenon 32-10-0563Nlgxsvqkakh Screen, UrNegativeNEGATIVEMercy HealthComment on above: (Positive cutoff 500 ng/mL) Barbiturate Screen, UrNegativeNEGATIVEMercy HealthComment on above: (Positive cutoff 200 ng/mL) Benzodiazepine Screen, UrineNegativeNEGATIVEMercy HealthComment on above: (Positive cutoff 150 ng/mL) Cannabinoid Scrn, UrNegativeNEGATIVEMercy HealthComment on above: (Positive cutoff 50 ng/mL) Cocaine Metabolite, UrineNegativeNEGATIVEMercy HealthComment on above: (Positive cutoff 150 ng/mL) Interpretation and review of laboratory resultsAbnormalMercy HealthMethadone Screen, UrineNegativeNEGATIVEMercy HealthComment on above: (Positive cutoff 200 ng/mL) Methamphetamine, UrineNegativeNEGATIVEMercy HealthComment on above: (Positive cutoff 500 ng/mL) Opiates, UrinePositiveAbnormalNEGATIVEMercy HealthComment on above: (Positive cutoff 100 ng/mL) Oxycodone Screen, UrNegativeNEGATIVEMercy HealthComment on above: (Positive cutoff 100 ng/mL) Phencyclidine, UrineNegativeNEGATIVEMercy HealthComment on above: (Positive cutoff 25 ng/mL) Propoxyphene, UrineNegativeNEGATIVEMercy HealthComment on above: (Positive cutoff 300 ng/mL) Tricyclic Antidepressants, UrineNegativeNEGATIVEMercy HealthComment on above: (Positive cutoff 300 ng/mL) Drug screen results are to be used for medical purposes only. All positive results are unconfirmed. Testing for employment or legal uses should be sent to a reference laboratory for confirmation. [employer]XR CHEST PORTABLEon 06-28-2021 No acute abnormality. [facility] CONSOLIDATEDCLINICAL HISTORY: altered mental status COMPARISON: none FINDINGS: Portable AP view of the chest obtained. Cardiomediastinal silhouette is normal. Lungs are clear, no evidence of infiltrate, suspicious nodule, or mass. No evidence of significant pleural fluid on this portable projection. No acute bony abnormality. [facility] Leonardo Dougherty MD - 06/28/2021 CLINICAL HISTORY: altered mental status COMPARISON: none FINDINGS: Portable AP view of the chest obtained. Cardiomediastinal silhouette is normal. Lungs are clear, no evidence of infiltrate, suspicious nodule, or mass. No evidence of significant pleural fluid on this portable projection. No acute bony abnormality. IMPRESSION: No acute abnormality. [employer] Phone: radiology Study observation (narrative)[employer] Phone: xr CHEST PORTABLEOrdered By: Leonardo Lopes on [phone] Phone: [phone]-29, MOLECULARon 81-75-8406YAKK-CoV-2 (COVID-19) RNA CAL+probe Ql (Unsp spec)Not detectedNormalOhioHealth [facility] Comment on above:Order Comment: This test was performed under the [...] at the following links: For Healthcare Providers: https://www.fda.gov/media/073189/download For Patients: https://www.fda.gov/media/869419/downloadPerformed By: #### [id number] #### [facility] [address] [place], [place] [address] Skylar Niño M.D. [id number] FOOT LEFT WITHOUT CONTRASTon [id number] FOOT LEFT WITHOUT CONTRASTEXAMINATION: MRFTLWO MR FOOT LEFT WITHOUT CONTRAST TECHNIQUE: [...] AM EDT Finalized by: JOS GUADARRAMA on [facility] May 22, 2021 7:54:35 AM [facility] on above:Order Comment: Injury/Trauma or Illness?:Illness/Other How long have you had these symptoms (acute/chronic)?:Acute Reason for exam?:ulcer in ball of foot at 1st -2nd metatarsal heads, (2nd toe has been removed) x1 month Type of Exam?:Initial Additional signs and symptoms?:patient is a diabeticXR FOOT LEFT 3+ VIEWS (STANDARD)on 60-47-8832GQ FOOT LEFT 3+ VIEWS (STANDARD)EXAMINATION: XR FOOT LEFT 3+ VIEWS (STANDARD) 05/20/2021 [...] ID: [id number] Dictated by: LUIS POLANCO on [place] May 20, 2021 4:40:24 PM EDT Transcribed by: LUIS POLANCO on [place] May 20, 2021 4:40:24 PM EDT Finalized by: LUIS POLANCO on [place] May 20, 2021 4:40:24 PM [facility] on above:Order Comment: Injury/Trauma or Illness?:Illness/Other How long have you had these symptoms (acute/chronic)?:Acute Reason for exam?:callused area to left plantar foot History of cancer?:u Surgeries, chemotherapy, or radiation?:u Type of Exam?:Initial Additional signs and symptoms?:CT ANGIOGRAM HEAD NECKon 73-08-9430NO ANGIOGRAM HEAD NECKEXAMINATION: CT ANGIOGRAM HEAD NECK HISTORY: Headache, sudden, severe Injury/Trauma or Illness?:Illness/Other How long have you had these symptoms (acute/chronic)?:Acute Reason for exam?:head and neck pain, sudden and severe Type of Exam?:Initial Additional signs and symptoms?:r/o vertebral artery dissection Injury/Trauma or Illness?:Illness/Other How long have you had these symptoms (acute/chronic)?:AcuteHeadache, sudden, severe COMPARISON: None available at time [...] patent on the right. SCA patent bilaterally. AUDIT LEAD patent bilaterally. Basilar artery and basilar tip [...] ID: [id number] Dictated by: KIKE MAGUIRE on [facility] May 19, 2021 3:53:28 AM EDT Transcribed by: KIKE MAGUIRE on [facility] May 19, 2021 3:53:28 AM EDT Finalized by: KIKE MAGUIRE on [facility] May 19, 2021 3:53:28 AM [facility] on above:Order Comment: Injury/Trauma or Illness?:Illness/Other How long have you had these symptoms (acute/chronic)?:Acute Reason for exam?:head and neck pain, sudden and severe Type of Exam?:Initial Additional signs and symptoms?:r/o vertebral artery dissectionMR BRAIN WITH AND WITHOUT CONTRASTon [id number] BRAIN WITH AND WITHOUT CONTRASTEXAMINATION: MR BRAIN WITH AND WITHOUT CONTRAST HISTORY: [...] [place] May 19, 2021 10:41:14 PM EDWVUMedicine Harrison Community HospitalCommclaren [facility] on above:Order Comment: Injury/Trauma or Illness?:Illness/Other How long have you had these symptoms (acute/chronic)?:Acute Reason for exam?:H/A neck pain increased after visit to chiropractor office x 4 days ago Hx. of chronic neck pain / H/A's Type of Exam?:Initial Additional signs and symptoms?:naMR CERVICAL SPINE WITH AND WITHOUT CONTRASTon [id number] CERVICAL SPINE WITH AND WITHOUT CONTRASTEXAMINATION: MR CERVICAL SPINE WITH AND WITHOUT CONTRAST HISTORY: Neck pain, chronic Dx: S13.9XXA (Neck sprain, initial encounter) Injury/Trauma or Illness?:Illness/Other How long have you had these symptoms (acute/chronic)?:Acute CONTRAST: GADOTERATE MEGLUMINE 0.5 MMOL/ML (376.9 MG/ML) [...] at C4-5. No evidence of foraminal stenosis. JGW/ Workstation ID: [id number] Dictated by: Pili FONTAINE on FriMay 20, 2021 8:14:06 AM EDT Transcribed by: JANY FORBES on FriMay 20, 2021 8:50:25 AM EDT Finalized by: Pili FONTAINE on FriMay 20, 2021 2:03:56 PM EDTNoMemorial Health System Selby General HospitalComment on above:Order Comment: Injury/Trauma or Illness?:Illness/Other How long have you had these symptoms (acute/chronic)?:Acute Reason for exam?:H/A neck pain increased after visit to chiropractor office x 4 days ago Hx. of chronic neck pain / H/A's Type of Exam?:Initial Additional signs and symptoms?:naUS ABDOMEN LIMITED STUDYon [id number] ABDOMEN LIMITED STUDYEXAMINATION: US ABDOMEN LIMITED STUDY HISTORY: ORDERING SYSTEM [...] on Sat May 19, 2021 6:07:29 PM EDTNoMemorial Health System Selby General HospitalComment on above:Order Comment: Injury/Trauma or Illness?:Illness/Other How long have you had these symptoms (acute/chronic)?:Acute Reason for exam?:elevated liver enzymes History of cancer?:u Surgeries, chemotherapy, or radiation?:u Type of Exam?:Initial Additional signs and symptoms?:nCOVID-19, MOLECULARon 93-80-5554IIDZ-CoV-2 (COVID-19) RNA CAL+probe Ql (Unsp spec)Not detectedNormalNot [facility] HospitalComment on above:Result Comment: This test was performed under the FDA's Emergency Use Authorization (EUA). Testing was performed using the Xpert Xpress SARS-CoV-2 RT-PCR [employer] assay on the GeneXpert Dx platform. This test has not been approved for use in asymptomatic patients and its performance in this patient population has not been evaluated. Negative results do not rule out the presence of SARS-CoV-2/COVID-19. Fact sheets for this EUA can be found at the following links: For Healthcare Providers: https://www.fda.gov/media/798372/download For Patients: https://www.fda.gov/media/261544/downloadPerformed By: #### [id number] #### [facility] [address] [place], [place] [address] Skylar Niño M.D. [id number] CERVICAL SPINE WITHOUT CONTRASTon [id number] CERVICAL SPINE WITHOUT CONTRASTEXAMINATION: CT CERVICAL SPINE WITHOUT CONTRAST. 05/18/2021 CLINICAL [...] to severe right facet arthropathy at C5-C6. Yzan-mg-rapwcwpx stenosis of the right C5-C6 neural foramen [...] the cervical spine without central spinal stenosis. Rgrz-ju-mpbtouvc stenosis the right C5-C6 neural foramen secondary to mild uncovertebral hypertrophy and moderate to severe right facet hypertrophy. Workstation ID: [id number] Dictated by: ALBERT MARIA on FriMay 18, 2021 5:23:47 PM EDT Transcribed by: ALBERT MARIA on FriMay 18, 2021 5:23:47 PM EDT Finalized by: ALBERT MARIA on FriMay 18, 2021 5:23:[address] [facility] Comment on above:Order Comment: Injury/Trauma or Illness?:Injury/Trauma How long have you had these symptoms (acute/chronic)?:Acute Reason for exam?:severe neck pain and headache since chiropractic adjustment a couple days ago Type of Exam?:Initial Mechanism of injury?:[facility] STAND[facility] - OUon [id number] 24-2 STANDARD - OUOD: Reliable: 0/16 FL, 0% FP, 0% FN Stable: worse Findings: superior alt MD: -11.18 (-7.05) OS: Reliable: 1/17 FL, 0% FP, 12% FN Stable: worse Findings: superior forming alt MD: -7.89 (-5.69)[facility]'s HospitalBUN CREAon 91-51-5541Ozmgcsrodo [Mass/Vol]1.38 mg/dLHigh0.50 - 1.20 mg/dLU [facility] HospitalGFR/1.73 sq M.predicted CKD-EPI (S/P/Bld) [Vol rate/Area]44Low>=60 mL/min/1.79d0LCHMercy Health Lorain HospitalComment on above:Reported eGFR is based on the CKD-EPI 2020 equation using creatinine, age, and sex.Interpretation and review of laboratory resultsAbnormalOFisher-Titus Medical CenterUrea nitrogen [Mass/Vol]27 mg/dLHigh7 - 25 mg/dLOSU [facility] Park HospitalUrea nitrogen/Creatinine [Mass ratio]20 mg/mgOSU [facility] Park HospitalOSU [facility] HospitalCreatinine [Mass/Vol]1.38 mg/dLHigh0.50-1.20[facility] CampusComment on above:Order Comment: Prior to first [facility] and every 2 weeks if baseline CR is within normal limits.Performed By: #### BCR #### [facility] (DEFAULT) [address] [address]MGJ/1.73 sq M.predicted among non-blacks MDRD (S/P/Bld) [Vol rate/Area]44 mL/min/{1.73_m2}Low>=60[facility] Comment on above:Order Comment: Prior to first [facility] and every 2 weeks if baseline CR is within normal limits.Result Comment: Reported eGFR is based on the CKD-EPI 2020 equation using creatinine, age, and sex.Performed By: #### BCR #### [facility] (DEFAULT) [address] [address]Wrlq nitrogen [Mass/Vol]27 mg/dLHigh7-25[facility] CampusComment on above:Order Comment: Prior to first [facility] and every 2 weeks if baseline CR is within normal limits.Performed By: #### BCR #### [facility] (DEFAULT) [address] [address]Zpbc nitrogen/Creatinine [Mass ratio]20 mg/mgNormalOSelect Medical Specialty Hospital - CincinnatiComment on above:Order Comment: Prior to first [facility] and every 2 weeks if baseline CR is within normal limits. Performed By: #### BCR #### [facility] (DEFAULT) [address] [address]ACC AND ELECTRONIC DIFFon [id number] (Bld) [#/Vol] 10*3/uL0.00 - 0.15 K/uLOhioHealth Riverside Methodist HospitalBasophils/100 WBC (Bld)0.2 %[facility] HospitalDIFF STATUSElectronic DifferentialOSU [facility] Eosinophils (Bld) [#/Vol]0.16 10*3/uL0.00 - 0.42 K/uLOhioHealth [facility]ide [facility] Hospital Eosinophils/100 WBC (Bld)1.9 %[facility] HospitalErythrocyte distribution width (RBC) [Ratio]15.4 %High10.8 - 14.9 %[facility] HospitalHematocrit (Bld) [Volume fraction]36.1 %34.9 - 44.3 %[facility] HospitalHemoglobin (Bld) [Mass/Vol]11.7 g/dL11.4 - 15.2 g/dLOhioHealth Riverside Methodist HospitalImmature granulocytes (Bld) [#/Vol]10*3/uL<=0.09 K/[facility] HospitalImmature granulocytes/100 WBC (Bld)0.2 %[facility] HospitalInterpretation and review of laboratory resultsAbnormVeterans Health AdministrationLymphocytes (Bld) [#/Vol]2.68 10*3/uL1.16 - 3.51 K/[facility] Memorial HospitalLymphocytes/100 WBC (Bld)32.0 %[facility] CenterH (RBC) [Entitic mass]27.6 pg25.9 - 33.9 pgMetroHealth Cleveland Heights Medical CenterHC (RBC) [Mass/Vol]32.4 g/dL31.4 - 35.9 g/dLOhioHealth Riverside Methodist HospitalMCV (RBC) [Entitic vol]85.1 fL79.6 - 97.7 [facility] CenterMonocytes (Bld) [#/Vol]0.37 10*3/uL0.22 - 0.87 K/uLOhioHealth Riverside Methodist HospitalMonocytes/100 WBC (Bld)4.4 %[facility] HospitalNeutrophils (Bld) [#/Vol]5.13 10*3/uL1.64 - 7.28 K/[facility] Memorial HospitalNucleated RBC/100 WBC (Bld) [Ratio]0.0 %<=0.2 /100 WBCOhioHealth Riverside Methodist HospitalPlatelet mean volume (Bld) [Entitic vol]9.8 fL8.5 - 12.2 [facility] Platelets (Bld) [#/Vol]338 10*3/uL150 - 393 K/[facility] Memorial HospitalRBC (Bld) [#/Vol]4.24 10*6/Corey Hospitalegmented neutrophils/100 WBC (Bld)61.3 %[facility] HospitalWBC (Bld) [#/Vol]8.38 10*3/uL3.99 - 11.19 K/[facility] Memorial HospitalOSU [facility] HospitalBasophils (Bld) [#/Vol] 10*3/uLNormal0.00-0.15[facility] CampusComment on above:Order Comment: Prior to first [facility] and then every 2 weeks.until results within normal limits. Collect weekly if baseline is abnormal.Performed By: #### [id number] #### [facility] (DEFAULT) [address] [address]Fxyrhzbyq/100 WBC (Bld)0.2 %NormalTrinity Health System East CampusComment on above:Order Comment: Prior to first [facility] and then every 2 weeks.until results within normal limits. Collect weekly if baseline is abnormal.Performed By: #### [id number] #### [facility] (DEFAULT) [address] [address]FUDL STATUSElectronic DifferentialHeartland Behavioral Health ServicesalOSelect Medical Specialty Hospital - CincinnatiComment on above:Order Comment: Prior to first [facility] and then every 2 weeks.until results within normal limits. Collect weekly if baseline is abnormal.Performed By: #### [id number] #### [facility] (DEFAULT) [address] [address]Rxkidoheuck (Bld) [#/Vol]0.16 10*3/uLNormal0.00-0.42[facility] CampusComment on above:Order Comment: Prior to first [facility] and then every 2 weeks.until results within normal limits. Collect weekly if baseline is abnormal.Performed By: #### [id number] #### [facility] (DEFAULT) [address] [address]Xruyeyqflyb/100 WBC (Bld)1.9 %St. [facility]'s HospitalComment on above:Order Comment: Prior to first [facility] In[facility] and then every 2 weeks.until results within normal limits. Collect weekly if baseline is abnormal.Performed By: #### [id number] #### U [facility] (DEFAULT) [address] [address]Vtcmwafyus (Bld) [Volume fraction]36.1 %Rzpjqf71.9-44.3[facility] CampusComment on above:Order Comment: Prior to first [facility] In[facility] and then every 2 weeks.until results within normal li mits. Collect weekly if baseline is abnormal.Performed By: #### [id number] #### U [facility] (DEFAULT) [address] [address]Akyqwfejtl (Bld) [Mass/Vol]11.7 g/zPVmlutv52.4-15.2[facility] CampusComment on above:Order Comment: Prior to first [facility] In[facility] and then every 2 weeks.until results within normal limits. Collect weekly if baseline is abnormal.Performed By: #### [id number] #### U [facility] (DEFAULT) [address] [address]Kjfvlmpj Grans %0.2 %St. Anthony's HospitalComment on above:Order Comment: Prior to first [facility] In[facility] and then every 2 weeks.until results within normal limits. Collect weekly if baseline is abnormal.Performed By: #### [id number] #### U [facility] (DEFAULT) [address] [address]Resaepyx Grans Absolute<0.04Normal<=0.09[facility] CampusComment on above:Order Comment: Prior to first [facility] In[facility] and then every 2 weeks.until results within normal limits. Collect weekly if baseline is abnormal.Performed By: #### [id number] #### U [facility] (DEFAULT) [address] [address]Mtnzcvhpcrs (Bld) [#/Vol]2.68 10*3/uLNormal1.16-3.51[facility] CampusComment on above:Order Comment: Prior to first [facility] Infusion and then every 2 weeks.until results within normal limits. Collect weekly if baseline is abnormal.Performed By: #### [id number] #### [facility] (DEFAULT) [address] [address]Kxyumhwylne/100 WBC (Bld)32.0 %NormalTrinity Health System East CampusComment on above:Order Comment: Prior to first [facility] Infusion and then every 2 weeks.until results within normal limits. Collect weekly if baseline is abnormal.Performed By: #### [id number] #### [facility] (DEFAULT) [address] [address]ISN (RBC) [Entitic vol]85.1 mWPpmlbu85.6-97.7[facility] CampusComment on above:Order Comment: Prior to first [facility] Infusion and then every 2 weeks.until results within normal limits. Collect weekly if baseline is abnormal.Performed By: #### [id number] #### [facility] (DEFAULT) [address] [address]Bdzw Cell Hgb27.6 izBsosmw54.9-33.9[facility] CampusComment on above:Order Comment: Prior to first [facility] In[facility] and then every 2 weeks.until results within normal limits. Collect weekly if baseline is abnormal.Performed By: #### [id number] #### U [facility] (DEFAULT) [address] [address]Dzxr Cell Hgb Conc32.4 g/kECczdzs19.4-35.9[facility] CampusComment on above:Order Comment: Prior to first [facility] Infusion and then every 2 weeks.until results within normal limits. Collect weekly if baseline is abnormal.Performed By: #### [id number] #### [facility] (DEFAULT) [address] [address]Zlvzbeabg (Bld) [#/Vol]0.37 10*3/uLNormal0.22-0.87[facility] CampusComment on above:Order Comment: Prior to first [facility] Infusion and then every 2 weeks.until results within normal limits. Collect weekly if baseline is abnormal.Performed By: #### [id number] #### [facility] (DEFAULT) [address] [address]Dhpxfelwa/100 WBC (Bld)4.4 %NormalTrinity Health System East CampusComment on above:Order Comment: Prior to first [facility] Infusion and then every 2 weeks.until results within normal limits. Collect weekly if baseline is abnormal.Performed By: #### [id number] #### [facility] (DEFAULT) [address] [address]Meyjoxiae RBC0.0 /100 WBCNormal<=0.2[facility] CampusComment on above:Order Comment: Prior to first [facility] In[facility] and then every 2 weeks.until results within normal limits. Collect weekly if baseline is abnormal.Performed By: #### [id number] #### U [facility] (DEFAULT) [address] [address]Gqbvkray mean volume (Bld) [Entitic vol]9.8 fLNormal8.5-12.2 [facility] CampusComment on above:Order Comment: Prior to first [facility] Infusion and then every 2 weeks.until results within normal li mits. Collect weekly if baseline is abnormal.Performed By: #### [id number] #### U [facility] (DEFAULT) [address] [address]Rfkplumgm (Bld) [#/Vol]338 10*3/rJOpzrda597-714BcetTrinity Health System East CampusComment on above:Order Comment: Prior to first [facility] Infusion and then every 2 weeks.until results within normal limits. Collect weekly if baseline is abnormal.Performed By: #### [id number] #### [facility] (DEFAULT) [address] [address]RFO (Bld) [#/Vol]4.24 10*6/uLNormal3.91-5.04[facility] CampusComment on above:Order Comment: Prior to first [facility] Infusion and then every 2 weeks.until results within normal limits. Collect weekly if baseline is abnormal.Performed By: #### [id number] #### [facility] (DEFAULT) [address] [address]IFB Zrwiibolfekt13.4 %High10.8-14.9[facility] System East CampusComment on above:Order Comment: Prior to first [facility] In[facility] and then every 2 weeks.until results within normal limits. Collect weekly if baseline is abnormal.Performed By: #### [id number] #### [facility] (DEFAULT) [address] [address]Vqjw + Bands Auto61.3 %NormalTrinity Health System East CampusComment on above:Order Comment: Prior to first [employer] and then every 2 weeks.until results within normal limits. Collect weekly if baseline is abnormal.Performed By: #### [id number] #### [facility] (DEFAULT) [address] [address]Ioeb + Bands,Absolute Auto5.13 K/uLNormal1.64-7.28[facility] System East CampusComment on above:Order Comment: Prior to first [employer] Infusion and then every 2 weeks.until results within normal limits. Collect weekly if baseline is abnormal.Performed By: #### [id number] #### [facility] (DEFAULT) [address] [address]SYN (Bld) [#/Vol]8.38 10*3/uLNormal3.99-11.19[facility] East CampusComment on above:Order Comment: Prior to first [employer] Infusion and then every 2 weeks.until results within normal limits. Collect weekly if baseline is abnormal.Performed By: #### [id number] #### [facility] (DEFAULT) [address] [address]ZKR CREAon [id number] [Mass/Vol]1.29 mg/dLHigh 0.50-1.20[facility] East CampusComment on above:Order Comment: Prior to first [employer] Infusion and every 2 weeks if baseline CR is within normal limits.Performed By: #### BCR #### [facility] (DEFAULT) [address] [address]QBT/1.73 sq M.predicted among non-blacks MDRD (S/P/Bld) [Vol rate/Area]48 mL/min/{1.73_m2}Low>=60[facility] Comment on above:Order Comment: Prior to first [employer] Infusion and every 2 weeks if baseline CR is within normal limits.Result Comment: Reported eGFR is based on the CKD-EPI 2020 equation using creatinine, age, and sex.Performed By: #### BCR #### [facility] (DEFAULT) [address] [address]Znsa nitrogen [Mass/Vol]27 mg/dLHigh7-25[facility] CampusComment on above:Order Comment: Prior to first [employer] Infusion and every 2 weeks if baseline CR is within normal limits.Performed By: #### BCR #### [facility] (DEFAULT) [address] [address]Gewo nitrogen/Creatinine [Mass ratio]21 mg/mgNormalOhio Mercy Health Anderson HospitalComment on above:Order Comment: Prior to first [employer] Infusion and every 2 weeks if baseline CR is within normal limits. Performed By: #### BCR #### [facility] (DEFAULT) [address] [address]BTQ AND ELECTRONIC DIFFon [id number] (Bld) [#/Vol] 0.05 10*3/uLNormal0.00-0.15[facility] CampusComment on above:Order Comment: Prior to first [employer] Infusion and then every 2 weeks.until results within normal limits. Collect weekly if baseline is abnormal.Performed By: #### [id number] #### [facility] (DEFAULT) [address] [address]Mskbeyvqu/100 WBC (Bld)0.6 %[facility] HospitalComment on above:Order Comment: Prior to first [employer] Infusion and then every 2 weeks.until results within normal limits. Collect weekly if baseline is abnormal.Performed By: #### [id number] #### [facility] (DEFAULT) [address] [address]WTNC STATUSElectronic DifferentialNormalOhio Mercy Health Anderson HospitalComment on above:Order Comment: Prior to first [employer] Infusion and then every 2 weeks.until results within normal limits. Collect weekly if baseline is abnormal.Performed By: #### [id number] #### [facility] (DEFAULT) [address] [address]Ucpvljseyuh (Bld) [#/Vol]0.23 10*3/uLNormal0.00-0.42[facility] CampusComment on above:Order Comment: Prior to first [employer] Infusion and then every 2 weeks.until results within normal limits. Collect weekly if baseline is abnormal.Performed By: #### [id number] #### [facility] (DEFAULT) [address] [address]Fbltamtezzr/100 WBC (Bld)2.6 %[facility] HospitalComment on above:Order Comment: Prior to first [employer] Infusion and then every 2 weeks.until results within normal limits. Collect weekly if baseline is abnormal.Performed By: #### [id number] #### [facility] (DEFAULT) [address] [address]Frhjzulvfy (Bld) [Volume fraction]34.0 %Low34.9-44.3[facility] East CampusComment on above:Order Comment: Prior to first [employer] Infusion and then every 2 weeks.until results within normal limits. Collect weekly if baseline is abnormal.Performed By: #### [id number] #### [facility] (DEFAULT) [address] [address]Pyjtthinio (Bld) [Mass/Vol]10.7 g/dLLow11.4-15.2[facility] CampusComment on above:Order Comment: Prior to first [employer] Infusion and then every 2 weeks.until results within normal limits. Collect weekly if baseline is abnormal.Performed By: #### [id number] #### [facility] (DEFAULT) [address] [address]Cxjzvvdb Grans %0.2 %[facility] HospitalComment on above:Order Comment: Prior to first [employer] Infusion and then every 2 weeks.until results within normal limits. Collect weekly if baseline is abnormal.Performed By: #### [id number] #### [facility] (DEFAULT) [address] [address]Ktxuupli Grans Absolute<0.04Normal<=0.09[facility] East CampusComment on above:Order Comment: Prior to first [employer] Infusion and then every 2 weeks.until results within normal limits. Collect weekly if baseline is abnormal.Performed By: #### [id number] #### [facility] (DEFAULT) [address] [address]Aeuhnvirvqa (Bld) [#/Vol]2.20 10*3/uLNormal1.16-3.51[facility] CampusComment on above:Order Comment: Prior to first [employer] Infusion and then every 2 weeks.until results within normal limits. Collect weekly if baseline is abnormal.Performed By: #### [id number] #### [facility] (DEFAULT) [address] [address]Higtomruwgj/100 WBC (Bld)24.5 %[facility] HospitalComment on above:Order Comment: Prior to first [employer] Infusion and then every 2 weeks.until results within normal limits. Collect weekly if baseline is abnormal.Performed By: #### [id number] #### [facility] (DEFAULT) [address] [address]HBU (RBC) [Entitic vol]85.4 hLQavhgd11.6-97.7[facility] East CampusComment on above:Order Comment: Prior to first [employer] Infusion and then every 2 weeks.until results within normal limits. Collect weekly if baseline is abnormal.Performed By: #### [id number] #### [facility] (DEFAULT) [address] [address]Epud Cell Hgb26.9 qnXfilyr28.9-33.9[facility] CampusComment on above:Order Comment: Prior to first [employer] Infusion and then every 2 weeks.until results within normal limits. Collect weekly if baseline is abnormal.Performed By: #### [id number] #### [facility] (DEFAULT) [address] [address]Frqa Cell Hgb Conc31.5 g/pUUwmgru66.4-35.9[facility] CampusComment on above:Order Comment: Prior to first [employer] Infusion and then every 2 weeks.until results within normal limits. Collect weekly if baseline is abnormal.Performed By: #### [id number] #### [facility] (DEFAULT) [address] [address]Yvpqcrsyx (Bld) [#/Vol]0.41 10*3/uLNormal0.22-0.87[facility] CampusComment on above:Order Comment: Prior to first [employer] Infusion and then every 2 weeks.until results within normal limits. Collect weekly if baseline is abnormal.Performed By: #### [id number] #### [facility] (DEFAULT) [address] [address]Gxadqnfls/100 WBC (Bld)4.6 %NormalTrinity Health System East CampusComment on above:Order Comment: Prior to first [employer] Infusion and then every 2 weeks.until results within normal limits. Collect weekly if baseline is abnormal.Performed By: #### [id number] #### [facility] (DEFAULT) [address] [address]Muxoekwil RBC0.0 /100 WBCNormal<=0.2[facility] CampusComment on above:Order Comment: Prior to first [employer] Infusion and then every 2 weeks.until results within normal limits. Collect weekly if baseline is abnormal.Performed By: #### [id number] #### [facility] (DEFAULT) [address] [address]Pmuoisom mean volume (Bld) [Entitic vol]9.8 fLNormal8.5-12.2 [facility] CampusComment on above:Order Comment: Prior to first [employer]ex Infusion and then every 2 weeks.until results within normal li mits. Collect weekly if baseline is abnormal.Performed By: #### [id number] #### [facility] (DEFAULT) [address] [address]Tmgioqwqd (Bld) [#/Vol]389 10*3/cLRkqzfg400-819PmarTrinity Health System East CampusComment on above:Order Comment: Prior to first [employer] Infusion and then every 2 weeks.until results within normal limits. Collect weekly if baseline is abnormal.Performed By: #### [id number] #### [facility] (DEFAULT) [address] [address]BMX (Bld) [#/Vol]3.98 10*6/uLNormal3.91-5.04[facility] CampusComment on above:Order Comment: Prior to first [employer]ex Infusion and then every 2 weeks.until results within normal limits. Collect weekly if baseline is abnormal.Performed By: #### [id number] #### [facility] (DEFAULT) [address] [address]MTX Powdddxhpsgb84.8 %Qdfhze32.8-14.9[facility] CampusComment on above:Order Comment: Prior to first [employer]ex Infusion and then every 2 weeks.until results within normal limits. Collect weekly if baseline is abnormal.Performed By: #### [id number] #### [facility] (DEFAULT) [address] [address]Hpce + Bands Auto67.5 %NormalTrinity Health System East CampusComment on above:Order Comment: Prior to first [employer]ex Infusion and then every 2 weeks.until results within normal limits. Collect weekly if baseline is abnormal.Performed By: #### [id number] #### [facility] (DEFAULT) [address] [address]Clgp + Bands,Absolute Auto6.07 K/uLNormal1.64-7.28[facility] CampusComment on above:Order Comment: Prior to first [employer]ex Infusion and then every 2 weeks.until results within normal limits. Collect weekly if baseline is abnormal.Performed By: #### [id number] #### [facility] (DEFAULT) [address] [address]RJR (Bld) [#/Vol]8.98 10*3/uLNormal3.99-11.19[facility] CampusComment on above:Order Comment: Prior to first [employer]ex Infusion and then every 2 weeks.until results within normal limits. Collect weekly if baseline is abnormal.Performed By: #### [id number] #### [facility] (DEFAULT) [address] [place] [address]DKT AND ELECTRONIC DIFFon [id number] (Bld) [#/Vol] 10*3/uLNormal0.00-0.15[facility] CampusComment on above:Order Comment: Prior to first [employer]ex Infusion and then every 2 weeks.until results within normal limits. Collect weekly if baseline is abnormal.Performed By: #### [id number] #### [facility] (DEFAULT) [address] [address]Kfblanwrq/100 WBC (Bld)0.3 %NormalTrinity Health System East CampusComment on above:Order Comment: Prior to first [employer]ex Infusion and then every 2 weeks.until results within normal limits. Collect weekly if baseline is abnormal.Performed By: #### [id number] #### [facility] (DEFAULT) [address] [address]DUYN STATUSElectronic DifferentialNormalOhiWayne HealthCare Main CampusComment on above:Order Comment: Prior to first [employer]ex Infusion and then every 2 weeks.until results within normal limits. Collect weekly if baseline is abnormal.Performed By: #### [id number] #### [facility] (DEFAULT) [address] [address]Xnvhtvwmmyb (Bld) [#/Vol]0.24 10*3/uLNormal0.00-0.42[facility] CampusComment on above:Order Comment: Prior to first [employer]ex Infusion and then every 2 weeks.until results within normal limits. Collect weekly if baseline is abnormal.Performed By: #### [id number] #### [facility] (DEFAULT) [address] [address]Ikqpywchuww/100 WBC (Bld)2.4 %[facility] HospitalComment on above:Order Comment: Prior to first [employer]ex Infusion and then every 2 weeks.until results within normal limits. Collect weekly if baseline is abnormal.Performed By: #### [id number] #### [facility] (DEFAULT) [address] [address]Roqhujfapq (Bld) [Volume fraction]33.4 %Low34.9-44.3[facility] CampusComment on above:Order Comment: Prior to first Gamunex Infusion and then every 2 weeks.until results within normal limits. Collect weekly if baseline is abnormal.Performed By: #### [id number] #### [facility] (DEFAULT) [address] [address]Qlldrjirlf (Bld) [Mass/Vol]10.3 g/dLLow11.4-15.2[facility] CampusComment on above:Order Comment: Prior to first [employer]ex Infusion and then every 2 weeks.until results within normal limits. Collect weekly if baseline is abnormal.Performed By: #### [id number] #### [facility] (DEFAULT) [address] [address]Uknrflgo Grans %0.2 %[facility] HospitalComment on above:Order Comment: Prior to first [employer]ex Infusion and then every 2 weeks.until results within normal limits. Collect weekly if baseline is abnormal.Performed By: #### [id number] #### [facility] (DEFAULT) [address] [address]Cfcdbipw Grans Absolute<0.04Normal<=0.09[facility] CampusComment on above:Order Comment: Prior to first [employer]unex Infusion and then every 2 weeks.until results within normal limits. Collect weekly if baseline is abnormal.Performed By: #### [id number] #### [facility] (DEFAULT) [address] [address]Lwoqfbpepjl (Bld) [#/Vol]2.87 10*3/uLNormal1.16-3.51[facility] CampusComment on above:Order Comment: Prior to first Gamunex Infusion and then every 2 weeks.until results within normal limits. Collect weekly if baseline is abnormal.Performed By: #### [id number] #### [facility] (DEFAULT) [address] [address]Gfnchimhnez/100 WBC (Bld)29.1 %NormalTrinity Health System East CampusComment on above:Order Comment: Prior to first [employer]ex Infusion and then every 2 weeks.until results within normal limits. Collect weekly if baseline is abnormal.Performed By: #### [id number] #### [facility] (DEFAULT) [address] [address]UWC (RBC) [Entitic vol]85.2 uCYcxuig63.6-97.7[facility] CampusComment on above:Order Comment: Prior to first [employer]unex Infusion and then every 2 weeks.until results within normal limits. Collect weekly if baseline is abnormal.Performed By: #### [id number] #### [facility] (DEFAULT) [address] [address]Neve Cell Hgb26.3 hgEggzcy13.9-33.9[facility] CampusComment on above:Order Comment: Prior to first [employer]ex Infusion and then every 2 weeks.until results within normal limits. Collect weekly if baseline is abnormal.Performed By: #### [id number] #### [facility] (DEFAULT) [address] [address]Xxnb Cell Hgb Conc30.8 g/dLLow31.4-35.9[facility] CampusComment on above:Order Comment: Prior to first [employer]unex Infusion and then every 2 weeks.until results within normal limits. Collect weekly if baseline is abnormal.Performed By: #### [id number] #### [facility] (DEFAULT) [address] [address]Iqqxiyoud (Bld) [#/Vol]0.37 10*3/uLNormal0.22-0.87[facility] CampusComment on above:Order Comment: Prior to first [employer]unex Infusion and then every 2 weeks.until results within normal limits. Collect weekly if baseline is abnormal.Performed By: #### [id number] #### [facility] (DEFAULT) [address] [address]Wfwtcwxie/100 WBC (Bld)3.7 %NormalTrinity Health System East CampusComment on above:Order Comment: Prior to first [employer]ex Infusion and then every 2 weeks.until results within normal limits. Collect weekly if baseline is abnormal.Performed By: #### [id number] #### [facility] (DEFAULT) [address] [address]Asvbvcdac RBC0.0 /100 WBCNormal<=0.2[facility] CampusComment on above:Order Comment: Prior to first [employer]ex Infusion and then every 2 weeks.until results within normal limits. Collect weekly if baseline is abnormal.Performed By: #### [id number] #### [facility] (DEFAULT) [address] [address]Forfyyjg mean volume (Bld) [Entitic vol]9.9 fLNormal8.5-12.2 [facility] CampusComment on above:Order Comment: Prior to first [employer]ex Infusion and then every 2 weeks.until results within normal li mits. Collect weekly if baseline is abnormal.Performed By: #### [id number] #### [facility] (DEFAULT) [address] [address]Foacbrlmj (Bld) [#/Vol]346 10*3/cHUtnadv631-952QgumTrinity Health System East CampusComment on above:Order Comment: Prior to first [employer]unex Infusion and then every 2 weeks.until results within normal limits. Collect weekly if baseline is abnormal.Performed By: #### [id number] #### [facility] (DEFAULT) [address] [address]KLQ (Bld) [#/Vol]3.92 10*6/uLNormal3.91-5.04[facility] CampusComment on above:Order Comment: Prior to first [employer]unex Infusion and then every 2 weeks.until results within normal limits. Collect weekly if baseline is abnormal.Performed By: #### [id number] #### [facility] (DEFAULT) [address] [address]RKX Qxdindkvncxr13.1 %High10.8-14.9[facility] CampusComment on above:Order Comment: Prior to first [employer]unex Infusion and then every 2 weeks.until results within normal limits. Collect weekly if baseline is abnormal.Performed By: #### [id number] #### [facility] (DEFAULT) [address] [address]Hwio + Bands Auto64.3 %NormalTrinity Health System East CampusComment on above:Order Comment: Prior to first [employer]ex Infusion and then every 2 weeks.until results within normal limits. Collect weekly if baseline is abnormal.Performed By: #### [id number] #### [facility] (DEFAULT) [address] [address]Ixrn + Bands,Absolute Auto6.34 K/uLNormal1.64-7.28[facility] CampusComment on above:Order Comment: Prior to first [employer]ex Infusion and then every 2 weeks.until results within normal limits. Collect weekly if baseline is abnormal.Performed By: #### [id number] #### [facility] (DEFAULT) [address] [address]MQQ (Bld) [#/Vol]9.87 10*3/uLNormal3.99-11.19[facility] CampusComment on above:Order Comment: Prior to first [employer]ex Infusion and then every 2 weeks.until results within normal limits. Collect weekly if baseline is abnormal.Performed By: #### [id number] #### [facility] (DEFAULT) [address] [address]Juagspfjiduyf metabolic 2000 panelon 90-88-2784Urzd Sensitivity Troponin I9 ng/LNormal<14[facility] CampusComment on above:Performed By: #### 10306-0 #### [facility] [address] [place], [place] [address]Pmdoavo Auto test strip (Bld) [Mass/Vol]on 04-06-2021 Glucose [Mass/Vol]219 mg/tBSbma22-86Dtthp [facility] CampusComment on above:Performed By: #### 91451-0 #### [facility] [address] [place], [place] [address]Mucmpou [Mass/Vol]245 mg/xXRmbm75-68Rgykp [facility] CampusComment on above:Performed By: #### 13388-4 #### [facility] [address] [place], [place] [address]Durtxjq [Mass/Vol]176 mg/cCFxei65-81Aapdw [facility] CampusComment on above:Performed By: #### 03944-3 #### [facility] [address] [place], [place] [address]Eqdnhxj [Mass/Vol]217 mg/wAOwpa77-41Xlqal [facility] CampusComment on above:Performed By: #### 2340-8 #### [facility] [address] [place], [place] [address]TtZ9r HPLC (Bld) [Mass fraction]on 71-43-0221GeS5u (Bld) [Mass fraction]11.8 %High<=5.6[facility] on above: Result Comment: HbA1c values of 5.7-6.4 percent indicate an increased risk for developing diabetes mellitus. HbA1c values greater than or equal to 6.5 percent are diagnostic of diabetes mellitus. For diagnosis of diabetes in individuals without unequivocal hyperglycemia, results should be confirmed by repeat testing.Performed By: #### 52241-6 #### [facility] [address] [place], [place] [address]Xvhm Bld Glu Estim.292 mg/dLNormalMount Ashley Medical Center on above:Performed By: #### 14570-9 #### [facility] [address] [place], [place] [address]Vzhwoyuw and platelets WO differential panel (Bld)on 86-29-9847Cicqcxsys (Bld) [#/Vol]0.00 10*3/uLNormal0.00-0.20[facility] on above:Performed By: #### 51913-3 #### [facility] [address] [place], [place] [address]Qbrkfblve/100 WBC (Bld)0.4 %Normal0.0-2.0[facility] on above:Performed By: #### 82564-4 #### [facility] [address] [place], [place] [address]Axkvbhldtiw (Bld) [#/Vol]0.30 10*3/uLNormal0.00-0.70[facility] on above:Performed By: #### 52978-9 #### [facility] [address] [place], [place] [address]Hgbaibgscnw/100 WBC (Bld)3.5 %Normal0.0-7.0[facility] CampusComment on above:Performed By: #### 42531-0 #### [facility] [address] [place], [place] [address]Mpepvexmasu distribution width (RBC) [Ratio]15.3 %High 11.0-14.8[facility] CampusComment on above:Performed By: #### 81900-9 #### [facility] [address] [place], [place] [address]Wsdvsjkabx (Bld) [Volume fraction]32.4 %Low35.0-45.0[facility] on above:Performed By: #### 01877-2 #### [facility] [address] [place], [place] [address]Nwplfwhoew (Bld) [Mass/Vol]10.8 g/dLLow12.0-16.0[facility] on above:Performed By: #### 04320-3 #### [facility] [address] [place], [place] [address]Dihrgfrjbgz (Bld) [#/Vol]3.10 10*3/uLNormal1.00-4.80[facility] CampusComment on above:Performed By: #### 76476-0 #### [facility] [address] [place], [place] [address]Ontqamvpmds/100 WBC (Bld)39.3 %Uzufjk01.0-44.0[facility] CampusComment on above:Performed By: #### 67605-3 #### [facility] [address] [place], [place] [address]QGI79.2 cdjScuege75.0-34.0[facility] Comment on above:Performed By: #### 58729-5 #### [facility] [address] [place], [place] [address]LNCJ (RBC) [Mass/Vol]33.4 g/vLCmqoyu75.0-36.0[facility] CampusComment on above:Performed By: #### 78525-1 #### [facility] [address] [place], [place] [address]YDO (RBC) [Entitic vol]81.4 aSDemcnt51.0-97.0[facility] CampusComment on above:Performed By: #### 34147-5 #### [facility] [address] [place], [place] [address]Nclcotcyc (Bld) [#/Vol]0.50 10*3/uLNormal0.00-0.90[facility] CampusComment on above:Performed By: #### 42710-5 #### [facility] [address] [place], [place] [address]Nfocwtfht/100 WBC (Bld)6.5 %Normal0.0-12.0[facility] CampusComment on above:Performed By: #### 43495-5 #### [facility] [address] [place], [place] [address]Hocrfxznzki Absolute4.00 K/mcLNormal1.80-7.70[facility] CampusComment on above:Performed By: #### 24213-9 #### [facility] [address] [place], [place] [address]Tkcjneygzgm/100 WBC (Bld)50.3 %Giywtq21.0-70.0[facility] CampusComment on above:Performed By: #### 19975-6 #### [facility] [address] [place], [place] [address]Fbyziuly mean volume (Bld) [Entitic vol]6.6 fLNormal 6.2-12.1[facility] CampusComment on above:Performed By: #### 18800-0 #### [facility] [address] [place], [place] [address]Ryvdkaeza (Bld) [#/Vol]356 10*3/pVAtgnnu999-316Xkwlz [facility] CampusComment on above:Performed By: #### 84883-6 #### [facility] [address] [place], [place] [address]SIX (Bld) [#/Vol]3.98 10*6/uLNormal3.80-5.10[facility] CampusComment on above:Performed By: #### 53327-4 #### [facility] [address] [address] [place], [place] [address]JIZ (Bld) [#/Vol]7.9 10*3/uLNormal4.6-10.2Mount [facility] CampusComment on above:Performed By: #### 92690-1 #### [facility] [address] [place], [place] [address]WL STRESS TEST WITH MYOCARDIAL PERFUSIONon 58-45-6886NQ STRESS TEST WITH MYOCARDIAL PERFUSIONThis is a summary report. The complete report [...] 71 109 78 161 85 1.0 67 12787.0 138 67NormalMount Unc Hospitals Hillsborough CampusTropinin I.cardiac panel High sensitivity methodon 30-04-5944Bkdv Sensitivity Troponin I9 ng/LNormal<14[facility] on above:Performed By: #### 00764-9 #### [facility] [address] [place], [place] [address]Pnhaf metabolic 2000 panelon 00-59-2563Ozeq Sensitivity Troponin I6 ng/LNormal<14[facility] on above: Performed By: #### 93311-3 #### [facility] [address] [place], [place] [address]Zrxpkvjj and platelets WO differential panel (Bld)on 72-63-3290Yelztafpi (Bld) [#/Vol]0.00 10*3/uLNormal0.00-0.20[facility] CampusComment on above:Performed By: #### 60104-8 #### [facility] [address] [place], [place] [address]Gmgimwkgr/100 WBC (Bld)0.5 %Normal0.0-2.0[facility] CampusCommclaren [facility] on above:Performed By: #### 22695-8 #### [facility] [address] [place], [place] [address]Ojqmfnqyijj (Bld) [#/Vol]0.20 10*3/uLNormal0.00-0.70[facility] CampusComment on above:Performed By: #### 57471-7 #### [facility] [address] [place], [place] [address]Coywdsicoig/100 WBC (Bld)2.1 %Normal0.0-7.0[facility] Hills[facility] CampusComment on above:Performed By: #### 41971-7 #### [facility] [address] [place], [place] [address]Mqvwpcdftoq distribution width (RBC) [Ratio]15.4 %High 11.0-14.8[facility] Hills[facility] CampusComment on above:Performed By: #### 61918-6 #### [facility] [address] [place], [place] [address]Glgkqkhtfp (Bld) [Volume fraction]33.6 %Low35.0-45.0[facility] on above:Performed By: #### 71361-3 #### [facility] [address] [place], [place] [address]Ighwzqfbbb (Bld) [Mass/Vol]11.1 g/dLLow12.0-16.0[facility] CampusComment on above:Performed By: #### 76750-4 #### [facility] [address] [place], [place] [address]Rwjsjtaolvu (Bld) [#/Vol]2.80 10*3/uLNormal1.00-4.80[facility] on above:Performed By: #### 23732-8 #### [facility] [address] [place], [place] [address]Cmyimlrmupt/100 WBC (Bld)28.2 %Mmcdjj14.0-44.0[facility] on above:Performed By: #### 93817-7 #### [facility] [address] [place], [place] [address]QOE39.7 oxpTawjtj58.0-34.0[facility] Comment on above:Performed By: #### 91651-1 #### [facility] [address] [place], [place] [address]LHOT (RBC) [Mass/Vol]33.2 g/wKBiofgz12.0-36.0[facility] CampusComment on above:Performed By: #### 05128-0 #### [facility] [address] [place], [place] [address]ZIO (RBC) [Entitic vol]83.2 qEYipuxj90.0-97.0[facility] CampusComment on above:Performed By: #### 32062-7 #### [facility] [address] [place], [place] [address]Oleqdwdih (Bld) [#/Vol]0.50 10*3/uLNormal0.00-0.90[facility] CampusComment on above:Performed By: #### 67892-1 #### [facility] [address] [place], [place] [address]Oocyxhfqr/100 WBC (Bld)5.2 %Normal0.0-12.0[facility] CampusComment on above:Performed By: #### 15557-6 #### [facility] [address] [place], [place] [address]Kqmidpzsbxl Absolute6.30 K/mcLNormal1.80-7.70[facility] CampusComment on above:Performed By: #### 24720-9 #### [facility] [address] [place], [place] [address]Mkvqvnvlxti/100 WBC (Bld)64.0 %Dleszb94.0-70.0[facility] CampusComment on above:Performed By: #### 06007-6 #### [facility] [address] [place], [place] [address]Ycqijxii mean volume (Bld) [Entitic vol]6.9 fLNormal 6.2-12.1[facility] CampusComment on above:Performed By: #### 02465-9 #### [facility] [address] [place], [place] [address]Hrwuacrwt (Bld) [#/Vol]386 10*3/lSWtddgu105-365Ydjnc Unc Hospitals Hillsborough CampusComment on above:Performed By: #### 89624-6 #### [facility] [address] [place], [place] [address]HZC (Bld) [#/Vol]4.03 10*6/uLNormal3.80-5.10[facility] CampusComment on above:Performed By: #### 00301-7 #### [facility] [address] [place], [place] [address]TBK (Bld) [#/Vol]9.8 10*3/uLNormal4.6-10.2[facility] CampusComment on above:Performed By: #### 87889-3 #### [facility] [address] [place], [place] [address]Xgxskitughi peptide B [Mass/Vol]on 03-10-3627QZU85 pcg/mL Normal0-100Mount [facility] Unionment on above:Result Comment: <100: CHF is unlikely 100-400: Possible left ventricular dysfunction-unlikely acute decompensation >400: Suspicious for decompensated heart failurePerformed By: #### 65305-8 #### [facility] [address] [place], [place] [address]JJGR-AcX-7 RNA Resp Ql CAL+probeon 35-37-3750YMBY-CoV-2 (COVID-19) RNA CAL+probe Ql (Resp)Not detectedNormalNot DetectedMount [facility] Medical Center on above:Performed By: #### 97526-6 #### [facility] [address] [place], [place] [address]HSZQSZFAQXHEG ECHOCARDIOGRAM (TTE) COMPLETE (CONTRAST/BUBBLE/3D PRN)on 45-92-2878HGMXQPQYGEMQU ECHOCARDIOGRAM (TTE) COMPLETE (CONTRAST/BUBBLE/3D PRN)This is a summary report. The complete report [...] 13 12 36 27 1.1 30 10 1.68NormalMount Unc Hospitals Hillsborough CampusTropinin I.cardiac panel High sensitivity methodon 55-74-4177Oyla Sensitivity Troponin I12 ng/LNormal<14[facility] CampusCommclaren [facility] on above:Performed By: #### 38982-9 #### [facility] [address] [place], [place] [address]Mtyuxwxegw dipstick W Reflex Culture panel (U)on 04-05-2021 Bilirubin, UrineNegativeNormalNegativeMount Unc Hospitals Hillsborough CampusComment on above:Performed By: #### 70842-6 #### [facility] [address] [place], [place] [address]Qdbmo, UrineNegativeNormalNegativeMount [facility] Westfisher-titus medical centerComment on above:Performed By: #### 85730-7 #### [facility] [address] [place], [place] [address]Jlfsznh (U)ClearNormalClearMount Unc Hospitals Hillsborough CampusComment on above:Performed By: #### 57281-1 #### [facility] [address] [place], [place] [address]Hwhxc (U)StrawAbnormalYellowMount Unc Hospitals Hillsborough CampusComment on above:Performed By: #### 70196-0 #### [facility] [address] [place], [place] [address]Thrtbfr Ql (U)>=500AbnormalNormalMount [facility] Westfisher-titus medical centerComment on above:Performed By: #### 91730-3 #### [facility] [address] [place], [place] [address]Foxbmxl Ql (U)NegativeNormalNegativeMount Unc Hospitals Hills[facility] CampusComment on above:Performed By: #### 58728-6 #### [facility] [address] [place], [place] [address]Qludgqjixy, UrineNegativeNormalNegativeMount [facility] Westfisher-titus medical centerComment on above:Performed By: #### 61757-0 #### [facility] [address] [place], [place] [address]Mvodkor, UrineNegativeNormalNegativeMount Unc Hospitals Hillsborough CampusComment on above:Performed By: #### 26841-6 #### [facility] [address] [place], [place] [address]qY (U)7.0 [pH]Normal5.0-8.0[facility] CampusComment on above:Performed By: #### 94739-4 #### [facility] [address] [place], [place] [address]Epcwuhb, UrineNegativeNormalNegativeMount Unc Hospitals Hillsborough CampusComment on above:Performed By: #### 06114-6 #### [facility] [address] [place], [place] [address]Bsaygqgd Lenorah Urine1.730Mgkkye7.002-1.030[facility] CampusComment on above:Performed By: #### 26985-4 #### [facility] [address] [place], [place] [address]Nzkfozqwvzlm, UrineNormalNormalNormalMount Unc Hospitals Hillsborough CampusComment on above:Performed By: #### 60419-3 #### [facility] [address] [place], [place] [address]YQ CHEST 1 VIEWon 80-26-5963FO CHEST 1 VIEWEXAMINATION TYPE: XR CHEST 1 VIEW DATE OF [...] Transcribed By: Self Edit Transcribed Date: 04/05/2021 14:59NormalMount [facility]yCommunity [facility] Medical CenterXR HAND LEFT 3+ VIEWSon 96-76-0514FZ HAND LEFT 3+ VIEWSEXAM TYPE: XR HAND LEFT 3+ VIEWS EXAM [...] joints of the second, third and fourth fingers.NormalMartin [facility](NO DIFF)on 03-15-2021 Erythrocyte distribution width (RBC) [Ratio]15.2 %High11.5-14.5AParkview Health Bryan HospitalComment on above:Performed By: #### HEMOG, CMPF, LIP2, RTSH, T42 #### Testing performed at [address] [address]Ezlitafees (Bld) [Volume fraction]34.3 %Low36.0-48.0[facility]'S Medical CenterComment on above:Performed By: #### HEMOG, CMPF, LIP2, RTSH, T42 #### Testing performed at [address] [address]Nnzevdrggc (Bld) [Mass/Vol]11.1 g/dLLow12.0-16.0[facility]S Medical CenterComment on above:Performed By: #### HEMOG, CMPF, LIP2, RTSH, T42 #### Testing performed at [address] [address]IKP (RBC) [Entitic mass]27.0 riSkyfyy01.0-35.0[facility] HospitalComment on above:Performed By: #### HEMOG, CMPF, LIP2, RTSH, T42 #### Testing performed at [address] [address]BXAD (RBC) [Mass/Vol]32.4 g/dYCgiwpi99.0-37.0[facility] Medical CenterComment on above:Performed By: #### HEMOG, CMPF, LIP2, RTSH, T42 #### Testing performed at [address] [address]ZJV (RBC) [Entitic vol]83.4 tYBkfyel85.0-100.0[facility]S Medical CenterComment on above:Performed By: #### HEMOG, CMPF, LIP2, RTSH, T42 #### Testing performed at [address] [address]Lmfgchdx mean volume (Bld) [Entitic vol]7.1 fLLow7.4-11.0[facility]S Medical CenterComment on above:Result Comment: Testing performed at [place] [address]Performed By: #### HEMOG, CMPF, LIP2, RTSH, T42 #### Testing performed at [address] [address]Eaqsqdrtd (Bld) [#/Vol]339 10*3/xZGfwabk897.0-400.0[facility] Medical CenterComment on above:Performed By: #### HEMOG, CMPF, LIP2, RTSH, T42 #### Testing performed at [address] [address]DZR (Bld) [#/Vol]4.11 10*6/uLNormal4.0-5.4AParkview Health Bryan Hospital Comment on above:Performed By: #### HEMOG, CMPF, LIP2, RTSH, T42 #### Testing performed at [address] [address]TXQ (Bld) [#/Vol]6.8 10*3/uLNormal3.6-11.0[facility] Comment on above:Performed By: #### HEMOG, CMPF, LIP2, RTSH, T42 #### Testing performed at [address] [address]LDI FASTINGon 2A:G RATIO1.1 RATIOLow1.3-2.2AParkview Health Bryan HospitalComment on above:Performed By: #### HEMOG, CMPF, LIP2, RTSH, T42 #### Testing performed at [place] [address]ALBUMIN3.9 G/dlNormal3.5-5.0[facility]S Medical CenterComment on above:Performed By: #### HEMOG, CMPF, LIP2, RTSH, T42 #### Testing performed at [place] [address]ALP [Catalytic activity/Vol]113 U/NHgvevh64-848KzsleBarney Children'S Medical CenterComment on above:Performed By: #### HEMOG, CMPF, LIP2, RTSH, T42 #### Testing performed at [place] [address]ALT [Catalytic activity/Vol]14 U/LNormal<35[facility] Comment on above:Performed By: #### HEMOG, CMPF, LIP2, RTSH, T42 #### Testing performed at [address] [address]EZV [Catalytic activity/Vol]19 U/LUcpewx90-86IvznqBarney Children'S Medical CenterComment on above:Performed By: #### HEMOG, CMPF, LIP2, RTSH, T42 #### Testing performed at [place] [address]Bilirubin [Mass/Vol]0.4 mg/dLNormal0.2-1.3AParkview Health Bryan Hospital Comment on above:Performed By: #### HEMOG, CMPF, LIP2, RTSH, T42 #### Testing performed at [address] [address]Fqteetq [Mass/Vol]9.6 mg/dLNormal8.4-10.2AParkview Health Bryan Hospital Comment on above:Performed By: #### HEMOG, CMPF, LIP2, RTSH, T42 #### Testing performed at [address] [address]Ahojhpoo [Moles/Vol]105 mmol/XOraqnp76-566BzzxmBarney Children'S Medical Center Comment on above:Result Comment: Please note: Triglyceride levels of 600mg/dL or higher may positively bias chlorideresults by approximately 2.1 mmolPerformed By: #### HEMOG, CMPF, LIP2, RTSH, T42 #### Testing performed at [address] [address]SL4 [Moles/Vol]24 mmol/CUfebfq84-68IqtmlBarney Children'S Medical CenterComment on above:Performed By: #### HEMOG, CMPF, LIP2, RTSH, T42 #### Testing performed at [address] [address]Arxxwxefts [Mass/Vol]1.20 mg/dLNormal0.7-1.2AParkview Health Bryan HospitalComment on above:Performed By: #### HEMOG, CMPF, LIP2, RTSH, T42 #### Testing performed at [address] [address]ZNA. GFR, Mwsnheoo04 ml/min/1.73sq.mNGuadalupe County HospitalComment on above:Performed By: #### HEMOG, CMPF, LIP2, RTSH, T42 #### Testing performed at [address] [address]SWB. GFR,Non Dasuwiko25 ml/min/1.73sq.mNGuadalupe County HospitalComment on above:Performed By: #### HEMOG, CMPF, LIP2, RTSH, T42 #### Testing performed at [address] [address]ITI InformationAverage GFR for 50-59 years old = 93.NormalBarney Children'S Medical CenterComment on above:Result Comment: Chronic Kidney disease, GFR = <60. Kidney failure, GFR = <15. The GFR estimate is not adjusted for extreme body surface area or acute process, nor has it been validated for women or ethnic groups other than and . Testing performed at [place], [place] [address]Xvrjudfgi By: #### HEMOG, CMPF, LIP2, RTSH, T42 #### Testing performed at [address] [address]Cmzwxtg [Mass/Vol]222 mg/dHLjbq69-173BilfiBarney Children'S Medical Center Comment on above:Result Comment: NORMAL <100 mg/dL PREDIABETES 101-126 mg/dL DIABETES 126 mg/dL or higherPerformed By: #### HEMOG, CMPF, LIP2, RTSH, T42 #### Testing performed at [address] [address]Clfefrqri [Moles/Vol]4.5 mmol/LNormal3.5-5.1AParkview Health Bryan HospitalComment on above:Performed By: #### HEMOG, CMPF, LIP2, RTSH, T42 #### Testing performed at [address] [address]Undtvto [Mass/Vol]7.3 g/dLNormal6.3-8.2AParkview Health Bryan Hospital Comment on above:Performed By: #### HEMOG, CMPF, LIP2, RTSH, T42 #### Testing performed at [address] [address]Xnydjf [Moles/Vol]139 mmol/FEzmxcn882-412VkmsrBarney Children'S Medical Center Comment on above:Performed By: #### HEMOG, CMPF, LIP2, RTSH, T42 #### Testing performed at [address] [address]Omzh nitrogen [Mass/Vol]26 mg/dLRoane General Hospital7-20[facility] Comment on above:Performed By: #### HEMOG, CMPF, LIP2, RTSH, T42 #### Testing performed at [address] [address]IKUT T4on 73-77-4154Wtgo T4 [Mass/Vol]1.07 ng/dLNormal0.78-2.19 [facility]S Medical CenterComment on above:Result Comment: Testing performed at [place], [place] [address]Xekzdhauz By: #### HEMOG, CMPF, LIP2, RTSH, T42 #### Testing performed at [address] [address]NENCJTVMYB A1Con 09-92-8933Mqdhzxl [Mass/Vol]289 mg/dLNormal [facility]'S Medical CenterHbA1c (Bld) [Mass fraction]11.7 %High0-6AParkview Health Bryan HospitalComment on above:Result Comment: NORMAL <5.7% PREDIABETES 5.7-6.4% DIABETES 6.5% OR HIGHERLIPID PROFILEon 36-50-3471Gufdevfypxb [Mass/Vol]226 mg/dL Pltf264-275XqwwvBarney Children'S Medical CenterComment on above:Performed By: #### HEMOG, CMPF, LIP2, RTSH, T42 #### Testing performed at [address] [address]Yboghygzatx in HDL [Mass/Vol]48 mg/iFOskvsk34-85CsrsaBarney Children'S Medical CenterComment on above:Performed By: #### HEMOG, CMPF, LIP2, RTSH, T42 #### Testing performed at [address] [address]Ajlllengmxz in LDL [Mass/Vol]143 mg/dLNoMimbres Memorial HospitalComment on above:Performed By: #### HEMOG, CMPF, LIP2, RTSH, T42 #### Testing performed at [address] [address]Vtikgmavkev in VLDL [Mass/Vol]35 mg/dLHigh5.0-25[facility]S Medical CenterComment on above:Performed By: #### HEMOG, CMPF, LIP2, RTSH, T42 #### Testing performed at [address] [address]Sptmhehjjrm.total/Cholesterol in HDL [Mass ratio]4.71 {ratio} NormalBarney Children'S Medical CenterComment on above:Result Comment: RISK TOTAL/HDL RATIO MEN WOMEN 1/2 AVERAGE 3.43 3.27 AVERAGE 4.97 4.44 2X AVERAGE 9.55 7.05 3X AVERAGE 23.99 11.04 Testing performed at [place] [address]Performed By: #### HEMOG, CMPF, LIP2, RTSH, T42 #### Testing performed at [address] [address]Lxincodvsrlr [Mass/Vol]174 mg/dLRoane General Hospital0-150[facility] Comment on above:Performed By: #### HEMOG, CMPF, LIP2, RTSH, T42 #### Testing performed at [address] [address]DSTW/CREAT RATIO,URINEon 91-43-8577JMTI/CREAT RATIO,HGHVM959.2 mg MALB/g CREATHigh1.3-30.0[facility] Medical CenterComment on above:Result Comment: Testing performed at [place] [address]Performed By: #### MCRAT #### Testing performed at [address] [address]HQIZUHELMPIN,RANDOM CNWBQ315.1 mg/LHigh0-16.7AParkview Health Bryan HospitalComment on above:Performed By: #### MCRAT #### Testing performed at [address] [address]OZNCQ CREATININE WITXFF593.5 MG/DLNormalAParkview Health Bryan Hospital Comment on above:Result Comment: NO NORMAL VALUES ESTABLISHED FOR RANDOM SPECIMENSPerformed By: #### MCRAT #### Testing performed at [address] [address]TVE,REFLEX FREE T4on 19-09-4625VHG,REFLEX FREE T47.180 uIU/ML High0.46-4.68[facility]S Medical CenterComment on above:Result Comment: Testing performed at [facility], [place], [place] [address]Xyprbmzyl By: #### HEMOG, CMPF, LIP2, RTSH, T42 #### Testing performed at [address] [address]PTF CREAon 90-73-5483Thrwswnzyh [Mass/Vol]1.16 mg/dLNormal 0.50-1.20[facility] CampusComment on above:Order Comment: Prior to first [employer] [facility] and every 2 weeks if baseline CR is within normal limits.Performed By: #### BCR #### [facility] (DEFAULT) [address] [address]ZVS GFR, Bayfncwf09 mL/min/1.73sqMLow>=60[facility] CampusComment on above:Order Comment: Prior to first [employer] [facility] and every 2 weeks if baseline CR is within normal limits. Performed By: #### BCR #### [facility] (DEFAULT) [address] [address]SJD GFR,Non Oyjiyngx97 mL/min/1.73sqMLow>=60[facility] CampusComment on above:Order Comment: Prior to first [employer] [facility] and every 2 weeks if baseline CR is within normal limits. Performed By: #### BCR #### [facility] (DEFAULT) [address] [address]Vfvk nitrogen [Mass/Vol]19 mg/dLNormal7-25[facility] CampusComment on above:Order Comment: Prior to first [employer] [facility] and every 2 weeks if baseline CR is within normal limits. Performed By: #### BCR #### [facility] (DEFAULT) [address] [address]Imxt nitrogen/Creatinine [Mass ratio]16 mg/mgNormalOhiWayne HealthCare Main CampusComment on above:Order Comment: Prior to first [employer] [facility] and every 2 weeks if baseline CR is within normal limits. Performed By: #### BCR #### [facility] ([facility]) [address] [place] [address]YSE AND ELECTRONIC DIFFon 72-51-0375Dfuwotspn (Bld) [#/Vol] 10*3/uLNormal0.00-0.15[facility] CampusComment on above:Order Comment: Prior to first [employer] [facility] and every 2 weeks if baseline CR is within normal limits.Performed By: #### BCR #### [facility] (DEFAULT) [address] [place] [address]Xsfxkzxsc/100 WBC (Bld)0.2 %[facility]. Anthony's HospitalComment on above:Order Comment: Prior to first [employer] [facility] and every 2 weeks if baseline CR is within normal limits.Performed By: #### BCR #### [facility] (DEFAULT) [address] [place] [address]LAOX STATUSElectronic DifferentialNoalOSelect Medical Specialty Hospital - CincinnatiComment on above:Order Comment: Prior to first [employer] [facility] and every 2 weeks if baseline CR is within normal limits.Performed By: #### BCR #### [facility] (DEFAULT) [address] [place] [address]Vlmuqvdfshe (Bld) [#/Vol]0.21 10*3/uLNormal0.00-0.42[facility] CampusComment on above:Order Comment: Prior to first [employer] [facility] and every 2 weeks if baseline CR is within normal limits. Performed By: #### BCR #### [facility] (DEFAULT) [address] [place] [address]Mlaoxngtbpo/100 WBC (Bld)2.3 %St. Anthony's HospitalComment on above:Order Comment: Prior to first [employer] [facility]fusion and every 2 weeks if baseline CR is within normal limits.Performed By: #### BCR #### [facility] (DEFAULT) [address] [place] [address]Fqeiapddhm (Bld) [Volume fraction]32.6 %Low34.9-44.3[facility] CampusComment on above:Order Comment: Prior to first [employer] [facility] and every 2 weeks if baseline CR is within normal limits. Performed By: #### BCR #### [facility] (DEFAULT) [address] [place] [address]Hzrwroaxjv (Bld) [Mass/Vol]10.2 g/dLLow11.4-15.2[facility] CampusComment on above:Order Comment: Prior to first [employer] [facility] and every 2 weeks if baseline CR is within normal limits. Performed By: #### BCR #### [facility] (DEFAULT) [address] [address]Iejkcfij Grans %0.2 %St. Anthony's HospitalComment on above:Order Comment: Prior to first [employer] In[facility] and every 2 weeks if baseline CR is within normal limits.Performed By: #### BCR #### [facility] (DEFAULT) [address] [address]Xeasmzot Grans Absolute<0.04Normal<=0.09[facility] CampusComment on above:Order Comment: Prior to first [employer] Infusion and every 2 weeks if baseline CR is within normal limits.Performed By: #### BCR #### [facility] (DEFAULT) [address] [address]Icqprziasej (Bld) [#/Vol]2.26 10*3/uLNormal1.16-3.51[facility] CampusComment on above:Order Comment: Prior to first [employer] Infusion and every 2 weeks if baseline CR is within normal limits. Performed By: #### BCR #### [facility] (DEFAULT) [address] [place] [address]Vfqdkocjpbx/100 WBC (Bld)25.3 %St. Anthony's HospitalComment on above:Order Comment: Prior to first [employer] In[facility] and every 2 weeks if baseline CR is within normal limits.Performed By: #### BCR #### [facility] (DEFAULT) [address] [address]GIP (RBC) [Entitic vol]86.2 nFYtdpsu65.6-97.7[facility] CampusComment on above:Order Comment: Prior to first [employer] Infusion and every 2 weeks if baseline CR is within normal limits. Performed By: #### BCR #### [facility] (DEFAULT) [address] [place] [address]Vdfv Cell Hgb27.0 eoUxvkjl65.9-33.9[facility] CampusComment on above:Order Comment: Prior to first [employer] Infusion and every 2 weeks if baseline CR is within normal limits.Performed By: #### BCR #### [facility] (DEFAULT) [address] [address]Gvip Cell Hgb Conc31.3 g/dLLow31.4-35.9[facility] CampusComment on above:Order Comment: Prior to first [employer] Infusion and every 2 weeks if baseline CR is within normal limits.Performed By: #### BCR #### [facility] (DEFAULT) [address] [address]Tvffhhqlo (Bld) [#/Vol]0.44 10*3/uLNormal0.22-0.87[facility] CampusComment on above:Order Comment: Prior to first [employer] Infusion and every 2 weeks if baseline CR is within normal limits. Performed By: #### BCR #### [facility] (DEFAULT) [address] [place] [address]Kwsjpxkgy/100 WBC (Bld)4.9 %NormalTrinity Health System East CampusComment on above:Order Comment: Prior to first [employer] [facility] and every 2 weeks if baseline CR is within normal limits.Performed By: #### BCR #### [facility] (DEFAULT) [address] [place] [address]Qqmnlgitr RBC0.0 /100 WBCNormal<=0.2[facility] East CampusComment on above:Order Comment: Prior to first Gamunex Infusion and every 2 weeks if baseline CR is within normal limits.Performed By: #### BCR #### [facility] (DEFAULT) [address] [place] [address]Thzeqcdm mean volume (Bld) [Entitic vol]9.7 fLNormal8.5-12.2 [facility] CampusComment on above:Order Comment: Prior to first Gamunex Infusion and every 2 weeks if baseline CR is within normal angel its.Performed By: #### BCR #### [facility] (DEFAULT) [address] [place] [address] 655[address]Ohtbdxwgc (Bld) [#/Vol]350 10*3/kQMhpzhe950-962HseiTrinity Health System East CampusComment on above:Order Comment: Prior to first Gamunex Infusion and every 2 weeks if baseline CR is within normal limits. Performed By: #### BCR #### [facility] (DEFAULT) [address] [address]YTU (Bld) [#/Vol]3.78 10*6/uLLow3.91-5.04[facility] East CampusComment on above:Order Comment: Prior to first Gamunex Infusion and every 2 weeks if baseline CR is within normal limits.Performed By: #### BCR #### [facility] (DEFAULT) [address] [place] [address] 04456TGV Voxmprfsrxcd04.6 %Twyctm96.8-14.9[facility] East CampusComment on above:Order Comment: Prior to first Gamunex Infusion and every 2 weeks if baseline CR is within normal limits.Performed By: #### BCR #### [facility] (DEFAULT) [address] [address]Pszm + Bands Auto67.1 %NormalTrinity Health System East CampusComment on above:Order Comment: Prior to first Gamunex Infusion and every 2 weeks if baseline CR is within normal limits.Performed By: #### BCR #### [facility] (DEFAULT) [address] [place] [address]Odrq + Bands,Absolute Auto5.99 K/uLNormal1.64-7.28[facility] CampusComment on above:Order Comment: Prior to first Gamunex Infusion and every 2 weeks if baseline CR is within normal limits. Performed By: #### BCR #### [facility] (DEFAULT) [address] [place] [address] 47381HIS (Bld) [#/Vol]8.94 10*3/uLNormal3.99-11.19[facility] East CampusComment on above:Order Comment: Prior to first Gamunex Infusion and every 2 weeks if baseline CR is within normal limits. Performed By: #### BCR #### [facility] (DEFAULT) [address] [address]XVB CREAon [id number] [Mass/Vol]1.19 mg/dLNormal 0.50-1.20[facility] East CampusComment on above:Order Comment: Prior to first Gamunex Infusion and every 2 weeks if baseline CR is within normal limits.Performed By: #### BCR #### [facility] (DEFAULT) [address] [address]RYK GFR, Dtssspcm97 mL/min/1.73sqMLow>=60[facility] East CampusComment on above:Order Comment: Prior to first Gamunex Infusion and every 2 weeks if baseline CR is within normal limits. Performed By: #### BCR #### [facility] (DEFAULT) [address] [place] [address]GMN GFR,Non Kahpodxc35 mL/min/1.73sqMLow>=60[facility] East CampusComment on above:Order Comment: Prior to first Gamunex Infusion and every 2 weeks if baseline CR is within normal limits. Performed By: #### BCR #### [facility] (DEFAULT) [address] [place] [address] 629[address]Pelr nitrogen [Mass/Vol]28 mg/dLHigh7-25[facility] East CampusComment on above:Order Comment: Prior to first Gamunex Infusion and every 2 weeks if baseline CR is within normal limits.Performed By: #### BCR #### [facility] (DEFAULT) [address] [address]Jpfp nitrogen/Creatinine [Mass ratio]24 mg/mgNoOhioHealth Nelsonville Health CenterComment on above:Order Comment: Prior to first Gamunex Infusion and every 2 weeks if baseline CR is within normal limits. Performed By: #### BCR #### [facility] (DEFAULT) [address] [address]BYD AND ELECTRONIC DIFFon [id number] (Bld) [#/Vol] 0.05 10*3/uLNormal0.00-0.15[facility] East CampusComment on above:Order Comment: Prior to first Gamunex Infusion and every 2 weeks if baseline CR is within normal limits.Performed By: #### BCR #### [facility] (DEFAULT) [address] [address]Gmrtkqrmv/100 WBC (Bld)0.6 %NormalTrinity Health System East CampusComment on above:Order Comment: Prior to first Gamunex Infusion and every 2 weeks if baseline CR is within normal limits.Performed By: #### BCR #### [facility] (DEFAULT) [address] [address]USTG STATUSElectronic DifferentialNoOhioHealth Nelsonville Health CenterComment on above:Order Comment: Prior to first Gamunex Infusion and every 2 weeks if baseline CR is within normal limits.Performed By: #### BCR #### [facility] (DEFAULT) [address] [address]Inlpymhazfs (Bld) [#/Vol]0.16 10*3/uLNormal0.00-0.42[facility] East CampusComment on above:Order Comment: Prior to first Gamunex Infusion and every 2 weeks if baseline CR is within normal limits. Performed By: #### BCR #### [facility] (DEFAULT) [address] [address]Wmmnuztemoj/100 WBC (Bld)1.8 %[facility]'s HospitalComment on above:Order Comment: Prior to first Gamunex Infusion and every 2 weeks if baseline CR is within normal limits.Performed By: #### BCR #### [facility] (DEFAULT) [address] [address]Kthmyppuld (Bld) [Volume fraction]34.7 %Low34.9-44.3[facility] East CampusComment on above:Order Comment: Prior to first Gamunex Infusion and every 2 weeks if baseline CR is within normal limits. Performed By: #### BCR #### [facility] (DEFAULT) [address] [place] [address]Zyasclglrs (Bld) [Mass/Vol]11.0 g/dLLow11.4-15.2[facility] East CampusComment on above:Order Comment: Prior to first Gamunex Infusion and every 2 weeks if baseline CR is within normal limits. Performed By: #### BCR #### [facility] (DEFAULT) [address] [address]Xqkmryar Grans %0.1 %[facility]. [facility]'s HospitalComment on above:Order Comment: Prior to first Gamunex Infusion and every 2 weeks if baseline CR is within normal limits.Performed By: #### BCR #### [facility] (DEFAULT) [address] [address]Ddlcjvcr Grans Absolute<0.04Normal<=0.09[facility] East CampusComment on above:Order Comment: Prior to first Gamunex Infusion and every 2 weeks if baseline CR is within normal limits.Performed By: #### BCR #### [facility] (DEFAULT) [address] [place] [address] 694[address]Flqqfxprkqq (Bld) [#/Vol]2.61 10*3/uLNormal1.16-3.51[facility] CenterComment on above:Order Comment: Prior to first Gamunex Infusion and every 2 weeks if baseline CR is within normal limits. Performed By: #### BCR #### [facility] (DEFAULT) [address] [address]Naqcnwjvnuf/100 WBC (Bld)29.4 %NormalTrinity Health System East CampusComment on above:Order Comment: Prior to first Gamunex Infusion and every 2 weeks if baseline CR is within normal limits.Performed By: #### BCR #### [facility] (DEFAULT) [address] [address]VGH (RBC) [Entitic vol]85.5 aWOtjdco44.6-97.7[facility] East CampusComment on above:Order Comment: Prior to first Gamunex Infusion and every 2 weeks if baseline CR is within normal limits. Performed By: #### BCR #### [facility] (DEFAULT) [address] [address]Twkt Cell Hgb27.1 jjIjfdas62.9-33.9[facility] East CampusComment on above:Order Comment: Prior to first Gamunex Infusion and every 2 weeks if baseline CR is within normal limits.Performed By: #### BCR #### [facility] (DEFAULT) [address] [address]Vjwa Cell Hgb Conc31.7 g/aDTvjwlk05.4-35.9[facility] East CampusComment on above:Order Comment: Prior to first Gamunex Infusion and every 2 weeks if baseline CR is within normal limits. Performed By: #### BCR #### [facility] (DEFAULT) [address] [address]Ayegbnkrr (Bld) [#/Vol]0.39 10*3/uLNormal0.22-0.87[facility] CampusComment on above:Order Comment: Prior to first Gamunex Infusion and every 2 weeks if baseline CR is within normal limits. Performed By: #### BCR #### [facility] (DEFAULT) [address] [place] [address] 296[address]Mfffidrae/100 WBC (Bld)4.4 %NormalTrinity Health System East CampusComment on above:Order Comment: Prior to first Gamunex Infusion and every 2 weeks if baseline CR is within normal limits.Performed By: #### BCR #### [facility] (DEFAULT) [address] [place] [address] 12[address]Gcpjqiwsn RBC0.0 /100 WBCNormal<=0.2[facility] East CampusComment on above:Order Comment: Prior to first Gamunex Infusion and every 2 weeks if baseline CR is within normal limits.Performed By: #### BCR #### [facility] (DEFAULT) [address] [place] [address] 598[address]Vtxufjre mean volume (Bld) [Entitic vol]9.7 fLNormal8.5-12.2 [facility] CampusComment on above:Order Comment: Prior to first Gamunex Infusion and every 2 weeks if baseline CR is within normal angel its.Performed By: #### BCR #### [facility] (DEFAULT) [address] [place] [address] 59747Dstvdzhct (Bld) [#/Vol]383 10*3/pXPxykpz795-853CurhTrinity Health System East CampusComment on above:Order Comment: Prior to first Gamunex Infusion and every 2 weeks if baseline CR is within normal limits. Performed By: #### BCR #### [facility] (DEFAULT) [address] [place] [address] 646[address]USY (Bld) [#/Vol]4.06 10*6/uLNormal3.91-5.04[facility] East CampusComment on above:Order Comment: Prior to first Gamunex Infusion and every 2 weeks if baseline CR is within normal limits. Performed By: #### BCR #### [facility] (DEFAULT) [address] [place] [address] 199[address]PKE Paqxibexbgib18.5 %Vkswuh59.8-14.9[facility] East CampusComment on above:Order Comment: Prior to first Gamunex Infusion and every 2 weeks if baseline CR is within normal limits.Performed By: #### BCR #### [facility] (DEFAULT) [address] [place] [address] 699[address]Eupe + Bands Auto63.7 %NormalTrinity Health System East CampusComment on above:Order Comment: Prior to first Gamunex Infusion and every 2 weeks if baseline CR is within normal limits.Performed By: #### BCR #### [facility] (DEFAULT) [address] [place] [address] 28342Kgak + Bands,Absolute Auto5.66 K/uLNormal1.64-7.28[facility] CampusComment on above:Order Comment: Prior to first Gamunex Infusion and every 2 weeks if baseline CR is within normal limits. Performed By: #### BCR #### [facility] (DEFAULT) [address] [place] [address] 11813FMY (Bld) [#/Vol]8.88 10*3/uLNormal3.99-11.19[facility] CampusComment on above:Order Comment: Prior to first Gamunex Infusion and every 2 weeks if baseline CR is within normal limits. Performed By: #### BCR #### [facility] (DEFAULT) [address] [place] [address] 48333QWR/HRT MACULA OUon [id number]/HRT MACULA OURight Eye Quality was good. Findings include subretinal fluid. Interval change is better. Recommendation for management is to continue treatment. Left Eye Quality was good. Findings include subretinal fluid. Interval change is better. Recommendation for management is to continue treatment.[facility]. [facility]'s HospitalBUN CREAon [id number] [Mass/Vol]1.20 mg/dLNormal0.50-1.20[facility] CampusComment on above: Order Comment: Prior to first Gamunex Infusion and every 2 weeks if baseline CR is within normal limits.Performed By: #### BCR #### [facility] (DEFAULT) [address] [address]LHI GFR, Ljhcqwra86 mL/min/1.73sqMLow>=60[facility] CampusComment on above:Order Comment: Prior to first Gamunex Infusion and every 2 weeks if baseline CR is within normal limits. Performed By: #### BCR #### [facility] (DEFAULT) [address] [place] [address] 090[address]PRZ GFR,Non Qqfvucrr82 mL/min/1.73sqMLow>=60[facility] CampusComment on above:Order Comment: Prior to first Gamunex Infusion and every 2 weeks if baseline CR is within normal limits. Performed By: #### BCR #### [facility] (DEFAULT) [address] [address]Sclx nitrogen [Mass/Vol]21 mg/dLNormal7-[facility] East CampusComment on above:Order Comment: Prior to first Gamunex Infusion and every 2 weeks if baseline CR is within normal limits. Performed By: #### BCR #### [facility] (DEFAULT) [address] [address]Vfar nitrogen/Creatinine [Mass ratio]18 mg/mgNormalOSelect Medical Specialty Hospital - CincinnatiComment on above:Order Comment: Prior to first Gamunex Infusion and every 2 weeks if baseline CR is within normal limits. Performed By: #### BCR #### [facility] (DEFAULT) [address] [address]PLW AND ELECTRONIC DIFFon 32-10-0839Dorsfvtsp (Bld) [#/Vol] 0.05 10*3/uLNormal0.00-0.15[facility] CampusComment on above:Order Comment: Prior to first Gamunex Infusion and then every 2 weeks.until results within normal limits. Collect weekly if baseline is abnormal.Performed By: #### [id number] #### [facility] (DEFAULT) [address] [address]Oxjgjtxrc/100 WBC (Bld)0.5 %[facility]'s HospitalComment on above:Order Comment: Prior to first Gamunex Infusion and then every 2 weeks.until results within normal limits. Collect weekly if baseline is abnormal.Performed By: #### [id number] #### [facility] (DEFAULT) [address] [address]KFQW STATUSElectronic DifferentialNormalOhio Mercy Health Anderson HospitalComment on above:Order Comment: Prior to first Gamunex Infusion and then every 2 weeks.until results within normal limits. Collect weekly if baseline is abnormal.Performed By: #### [id number] #### [facility] (DEFAULT) [address] [address]Qviyapdtyni (Bld) [#/Vol]0.31 10*3/uLNormal0.00-0.42[facility] East CampusComment on above:Order Comment: Prior to first Gamunex Infusion and then every 2 weeks.until results within normal limits. Collect weekly if baseline is abnormal.Performed By: #### [id number] #### [facility] (DEFAULT) [address] [address]Wdlyvlzrhbt/100 WBC (Bld)3.3 %[facility] HospitalComment on above:Order Comment: Prior to first Gamunex Infusion and then every 2 weeks.until results within normal limits. Collect weekly if baseline is abnormal.Performed By: #### [id number] #### [facility] (DEFAULT) [address] [address]Otepusfhll (Bld) [Volume fraction]33.5 %Low34.9-44.3[facility] East CampusComment on above:Order Comment: Prior to first Gamunex Infusion and then every 2 weeks.until results within normal limits. Collect weekly if baseline is abnormal.Performed By: #### [id number] #### [facility] (DEFAULT) [address] [address]Liaefmjodx (Bld) [Mass/Vol]10.5 g/dLLow11.4-15.2[facility] CampusComment on above:Order Comment: Prior to first Gamunex Infusion and then every 2 weeks.until results within normal limits. Collect weekly if baseline is abnormal.Performed By: #### [id number] #### [facility] (DEFAULT) [address] [address]Zedorgzg Grans %0.2 %[facility] HospitalComment on above:Order Comment: Prior to first Gamunex Infusion and then every 2 weeks.until results within normal limits. Collect weekly if baseline is abnormal.Performed By: #### [id number] #### [facility] (DEFAULT) [address] [address]Iglgteml Grans Absolute<0.04Normal<=0.09[facility] CampusComment on above:Order Comment: Prior to first Gamunex Infusion and then every 2 weeks.until results within normal limits. Collect weekly if baseline is abnormal.Performed By: #### [id number] #### [facility] (DEFAULT) [address] [address]Hiewaltibpt (Bld) [#/Vol]2.84 10*3/uLNormal1.16-3.51[facility] CampusComment on above:Order Comment: Prior to first Gamunex Infusion and then every 2 weeks.until results within normal limits. Collect weekly if baseline is abnormal.Performed By: #### [id number] #### [facility] (DEFAULT) [address] [address]Oeueogtsmeu/100 WBC (Bld)30.6 %[facility]'s HospitalComment on above:Order Comment: Prior to first Gamunex Infusion and then every 2 weeks.until results within normal limits. Collect weekly if baseline is abnormal.Performed By: #### [id number] #### [facility] (DEFAULT) [address] [place] [address]OTT (RBC) [Entitic vol]85.7 jDRpbran84.6-97.7[facility] CampusComment on above:Order Comment: Prior to first Gamunex Infusion and then every 2 weeks.until results within normal limits. Collect weekly if baseline is abnormal.Performed By: #### [id number] #### [facility] (DEFAULT) [address] [address]Zbpd Cell Hgb26.9 otEuwntn50.9-33.9[facility] CampusComment on above:Order Comment: Prior to first Gamunex Infusion and then every 2 weeks.until results within normal limits. Collect weekly if baseline is abnormal.Performed By: #### [id number] #### [facility] (DEFAULT) [address] [address]Zman Cell Hgb Conc31.3 g/dLLow31.4-35.9[facility] CampusComment on above:Order Comment: Prior to first Gamunex Infusion and then every 2 weeks.until results within normal limits. Collect weekly if baseline is abnormal.Performed By: #### [id number] #### [facility] (DEFAULT) [address] [address]Xbdvzoudd (Bld) [#/Vol]0.42 10*3/uLNormal0.22-0.87[facility] CampusComment on above:Order Comment: Prior to first Gamunex Infusion and then every 2 weeks.until results within normal limits. Collect weekly if baseline is abnormal.Performed By: #### [id number] #### [facility] (DEFAULT) [address] [address]Nqytzyegw/100 WBC (Bld)4.5 %NormalTrinity Health System East CampusComment on above:Order Comment: Prior to first Gamunex Infusion and then every 2 weeks.until results within normal limits. Collect weekly if baseline is abnormal.Performed By: #### [id number] #### [facility] (DEFAULT) [address] [address]Gbyhwzwnu RBC0.0 /100 WBCNormal<=0.2[facility] CampusComment on above:Order Comment: Prior to first Gamunex Infusion and then every 2 weeks.until results within normal limits. Collect weekly if baseline is abnormal.Performed By: #### [id number] #### [facility] (DEFAULT) [address] [address]Pwodwebz mean volume (Bld) [Entitic vol]9.3 fLNormal8.5-12.2 [facility] CampusComment on above:Order Comment: Prior to first Gamunex Infusion and then every 2 weeks.until results within normal li mits. Collect weekly if baseline is abnormal.Performed By: #### [id number] #### [facility] (DEFAULT) [address] [place] [address] 924[address]Rnevejtxi (Bld) [#/Vol]398 10*3/gFNadz006-018RwalTrinity Health System East CampusComment on above:Order Comment: Prior to first Gamunex Infusion and then every 2 weeks.until results within normal limits. Collect weekly if baseline is abnormal.Performed By: #### [id number] #### [facility] (DEFAULT) [address] [address]KRS (Bld) [#/Vol]3.91 10*6/uLNormal3.91-5.04[facility] CampusComment on above:Order Comment: Prior to first Gamunex Infusion and then every 2 weeks.until results within normal limits. Collect weekly if baseline is abnormal.Performed By: #### [id number] #### [facility] (DEFAULT) [address] [address]LZA Maqovpytrqfh31.5 %Dkovvx61.8-14.9[facility] CampusComment on above:Order Comment: Prior to first Gamunex Infusion and then every 2 weeks.until results within normal limits. Collect weekly if baseline is abnormal.Performed By: #### [id number] #### [facility] (DEFAULT) [address] [address]Trcf + Bands Auto60.9 %NormalTrinity Health System East CampusComment on above:Order Comment: Prior to first Gamunex Infusion and then every 2 weeks.until results within normal limits. Collect weekly if baseline is abnormal.Performed By: #### [id number] #### [facility] (DEFAULT) [address] [address]Kmkk + Bands,Absolute Auto5.63 K/uLNormal1.64-7.28[facility] CampusComment on above:Order Comment: Prior to first Gamunex Infusion and then every 2 weeks.until results within normal limits. Collect weekly if baseline is abnormal.Performed By: #### [id number] #### [facility] (DEFAULT) [address] [address]YTA (Bld) [#/Vol]9.27 10*3/uLNormal3.99-11.19[facility] East CampusComment on above:Order Comment: Prior to first Gamunex Infusion and then every 2 weeks.until results within normal limits. Collect weekly if baseline is abnormal.Performed By: #### [id number] #### [facility] (DEFAULT) [address] [place] [address]Z HYDROXYBUTYRATEon 01-14-2021 HYDROXYBUTYRATE0.08 MMOL/L Normal0.02-0.27[facility] CenterComment on above:Performed By: #### SANGEETA HUGGINS ACBC #### Testing performed at [address] [address]JVOqm [id number] BAS0.0 10*3/uLNormal0.0-0.2AJeff[facility]Comment on above:Performed By: #### SANGEETA HUGGINS ACBC #### Testing performed at [address] [address]ZPHQIWQS EOS0.20 10*3/uLNormal0.0-0.7AMat[facility] Comment on above:Performed By: #### SANGEETA HUGGINS ACBC #### Testing performed at [address] [address]OCXFKXZJ NEUTROPHIL COUNT4.9 10*3/uLNormal1.4-6.5AJefferson [facility] ([facility])Comment on above:Performed By: #### SANGEETA HUGGINS ACCORIE #### Testing performed at [address], [place] [address]Ignaooaib/100 WBC (Bld)0.4 %Normal0.0-2.0[facility] on above:Performed By: #### SANGEETA HUGGINS ACBC #### Testing performed at [address] [place] [address]TITNKJYNF DIFFNormalAJefferson [facility] ([facility])Comment on above: Performed By: #### SANGEETA HUGGINS, ACBC #### Testing performed at [address] [address]Jkjrvbqhepv/100 WBC (Bld)2.3 %Normal0.0-11.0[facility] CenterComment on above:Performed By: #### SANGEETA HUGGINS ACBC #### Testing performed at [address] [address]Hbpeykpdppg (Bld) [#/Vol]2.10 10*3/uLNormal1.2-3.4AJefferson [facility] ([facility])Comment on above:Performed By: #### SANGEETA HUGGINS, ACBC #### Testing performed at [address] [place] [address]Qnhaxfqjous/100 WBC (Bld)27.2 %Hdqria08.0-55.0[facility] Centerment on above:Performed By: #### SANGEETA HUGGINS, ACBC #### Testing performed at [address] [address]Vfpjajxyu (Bld) [#/Vol]0.6 10*3/uLNormal0.0-0.7ASelect [facility] [place] on above:Performed By: #### CMPMARQUITA GlasgowB, ACBC #### Testing performed at [address] [address]Rnybyggvq/100 WBC (Bld)7.5 %Normal0.0-10.0[facility] on above:Performed By: #### JONNYF BHB, ACBC #### Testing performed at [address] [address]Chhheomwibs/100 WBC (Bld)62.6 %Bkcgfp27.0-75.0[facility] CenterComment on above:Performed By: #### SANGEETA HUGGINS ACBC #### Testing performed at [address] [address]Xbyjaufinpv distribution width (RBC) [Ratio]15.6 %High11.5-14.5 [facility] CenterComment on above:Performed By: #### SANGEETA HUGGINS ACBC #### Testing performed at [address] [address]Ezyqvfncxr (Bld) [Volume fraction]32.7 %Low36.0-48.0Astra Health CenterComment on above:Performed By: #### SANGEETA HUGGINS ACCORIE #### Testing performed at [address] [address]Kmbtbwyysa (Bld) [Mass/Vol]10.8 g/dLLow12.0-16.0[facility] HospitalComment on above:Performed By: #### SANGEETA HUGGINS ACBC #### Testing performed at [address] [address]GBX (RBC) [Entitic mass]27.3 qhTxfpvl53.0-35.0[facility] Health CenterComment on above:Performed By: #### SANGEETA HUGGINS ACBC #### Testing performed at [address] [address]QEUX (RBC) [Mass/Vol]33.1 g/dCJtsbav28.0-37.0[facility] Health CenterComment on above:Performed By: #### SANGEETA HUGGINS ACBC #### Testing performed at [address] [address]JOR (RBC) [Entitic vol]82.5 dDIccjyo25.0-100.0[facility] Health CenterComment on above:Performed By: #### SANGEETA HUGGINS, ACBC #### Testing performed at [address] [address]Qqfpbywm mean volume (Bld) [Entitic vol]7.1 fLLow7.4-11.0[facility] HospitalComment on above:Performed By: #### SANGEETA HUGGINS ACBC #### Testing performed at [address], [place] [address]Yrxwyqgzk (Bld) [#/Vol]359 10*3/uMLavozw990.0-400.0[facility] HospitalComment on above:Performed By: #### SANGEETA HUGGINS, ACBC #### Testing performed at [address] [address]AYH (Bld) [#/Vol]3.96 10*6/uLLow4.0-5.4AMatheny [facility] and Educational Center Hospital Comment on above:Performed By: #### SANGEETA HUGGINS ACBC #### Testing performed at [address] [address]NWF (Bld) [#/Vol]7.8 10*3/uLNormal3.6-11.0[facility] HospitalComment on above:Performed By: #### SANGEETA HUGGINS ACBC #### Testing performed at [address] [address]TAA FASTINGon 01-14-2021:G RATIO1.0 RATIOLow1.3-2.2AMatheny [facility] Center HospitalComment on above:Performed By: #### SANGEETA HUGGINS ACBC #### Testing performed at [address] [address]EXDAEZZ6.9 G/dlNormal3.5-5.0[facility] HospitalComment on above:Performed By: #### SANGEETA HUGGISN ACBC #### Testing performed at [address] [address]HZW [Catalytic activity/Vol]117 U/MGzpogd33-526Hmmbe [facility] HospitalComment on above:Performed By: #### SANGEETA HUGGINS ACBC #### Testing performed at [address] [address]XIQ [Catalytic activity/Vol]24 U/LEfsdxk41-67Ohxfk [facility] HospitalComment on above:Performed By: #### SANGEETA HUGGINS ACBC #### Testing performed at [facility] [place] [facility] [address] [place], [place] [address]TWE [Catalytic activity/Vol]22 U/DLrnjlp21-69SaxdlAstra Health CenterComment on above:Performed By: #### SANGEETA HUGGINS ACBC #### Testing performed at [address], [place] [address]Mzibtmbvn [Mass/Vol]0.4 mg/dLNormal0.2-1.2AJefferson [facility]Comment on above:Performed By: #### SANGEETA HUGGINS ACBC #### Testing performed at [address], [place] [address]Ilfitpv [Mass/Vol]9.0 mg/dLNormal8.4-10.2AJefferson [facility] ([facility]) Comment on above:Performed By: #### SANGEETA HUGGINS ACBC #### Testing performed at [address] [place] [address]Vpwgojax [Moles/Vol]101 mmol/CMklbku99-056GorfjAstra Health CenterComment on above:Performed By: #### SANGEETA HUGGINS ACBC #### Testing performed at [address] [place] [address]YN6 [Moles/Vol]23 mmol/XYjywrz03-19OvuueAstra Health Center Comment on above:Performed By: #### SANGEETA HUGGINS ACBC #### Testing performed at [address], [place] [address]Nntsktntuv [Mass/Vol]1.40 mg/dLHigh0.52-1.04Astra Health CenterComment on above:Performed By: #### SANGEETA HUGGINS ACBC #### Testing performed at [address], [place] [address]GXL. GFR, Mapgyagg74 ml/min/1.73sq.mNCHRISTUS St. Vincent Physicians Medical CenterComment on above:Performed By: #### SANGEETA HUGGINS ACBC #### Testing performed at [address] [place] [address]WRW. GFR,Non Kuyydoav79 ml/min/1.73sq.mNCHRISTUS St. Vincent Physicians Medical CenterComment on above:Performed By: #### SANGEETA HUGGINS ACBC #### Testing performed at [address] [address]GSS InformationAverage GFR for 50-59 years old = 93.NormalAstra Health CenterComment on above:Result Comment: Chronic Kidney disease, GFR = <60. Kidney failure, GFR = <15. The GFR estimate is not adjusted for extreme body surface area or acute process, nor has it been validated for women or ethnic groups other than and .Performed By: #### SANGEETA HUGGINS ACBC #### Testing performed at [address] [address]Brjgzph [Mass/Vol]457 mg/dLCritically mbeg65-360HzsnzAstra Health CenterComment on above:Result Comment: NORMAL <100 mg/dL PREDIABETES 101-126 mg/dL DIABETES 126 mg/dL or higher Result called to read back by: Malvin WOODY 01/13/2021 @ 22:34 by CHARLESPerformed By: #### SANGEETA HUGGINS ACBC #### Testing performed at [address] [address]Xbmvxbbzr [Moles/Vol]4.6 mmol/LNormal3.5-5.1AJefferson [facility] ([facility])Comment on above:Performed By: #### SANGEETA HUGGINS ACBC #### Testing performed at [address] [address]Gvmhkdp [Mass/Vol]7.9 g/dLNormal6.3-8.2AJefferson Washington [facility] ([facility]) Comment on above:Performed By: #### SANGEETA HUGGINS ACBC #### Testing performed at [address] [address]Sagely [Moles/Vol]134 mmol/VHou950-955PgytqAstra Health Center Comment on above:Performed By: #### SANGEETA HUGGINS ACBC #### Testing performed at [address] [address]Guta nitrogen [Mass/Vol]36 mg/dLHigh7-20[facility] Comment on above:Performed By: #### SANGEETA HUGGINS ACBC #### Testing performed at [address] [address]MWVQ GLUCOSEon 06-47-1348Folttfl [Mass/Vol]391 mg/jSPckr06-466 [facility] Health CenterSreiszpaAYWNVBYT780172UveclsWgbzu Ontario HospitalGlucose [Mass/Vol]217 mg/hSHqfw36-270MtecyAstra Health CenterWeirvpaiOKOXNCCP084219NxaxvoLtqhn Ontario HospitalURINE MACROSCOPICon 92-09-9615Cdckccnvz Ql (U)NegativeNormal NEGATIVEAstra Health CenterComment on above:Performed By: #### UMDAVE UMIC #### Testing performed at [address] [address]Uhtduym (U)CLEARNormalCLEARAstra Health CenterCommclaren greater [facility] on above:Performed By: #### EDITA UMIC #### Testing performed at [address] [address]Evyti (U)YELLOWNormalYELLOWSelect Medical Specialty [facility] on above:Performed By: #### BRENDON KOHLERIC #### Testing performed at [address] [address]Ghtufqb Ql (U)500 mg/dlAbnormalNEGATIVEAstra Health Center Comment on above:Performed By: #### UMDAVE, UMIC #### Testing performed at [address] [address]wB (U)6.0 [pH]Normal5.0-7.0[facility] on above:Performed By: #### UMDAVE, UMIC #### Testing performed at [address] [address]WRLDG HEMOGLOBINTRACE-INTACTAbnormalNEGATIVEAstra Health CenterCommclaren greater lansing hospital on above:Performed By: #### UMAC UMIC #### Testing performed at [address] [address]KTRNW KETONENegativeNormalNEGATIVEAstra Health CenterCommclaren greater lansing hospital on above:Performed By: #### UMAC, UMIC #### Testing performed at [address] [address]CCBWH LEUKOTESTNegativeNoRUST Comment on above:Performed By: #### UMAC, UMIC #### Testing performed at [address] [address]RZIXT NITRATESNegativeNoalNEGSt. Joseph's Regional Medical Center Comment on above:Performed By: #### EDITA UMIC #### Testing performed at [address] [address]BQTQW SPEC GRAVITY1.851Eboiei3.010-1.025[facility] Comment on above:Performed By: #### EDITA, UMIC #### Testing performed at [address] [address]LWENY TOTAL PROTEINNegativeLifeCare Hospitals of North Carolina Comment on above:Performed By: #### BRENDONAC, UMIC #### Testing performed at [address] [address]Ekmqvhpdudoo Qn (U)0.2 {Rikki'U}/dLNormal0.2-1.0Astra Health CenterComment on above:Performed By: #### EDITA, UMIC #### Testing performed at [address] [address]XYJUR MICROSCOPICon 86-74-3627Uoyovefd LM.HPF (Urine sed) [#/Area]NegativeNormalNEGSt. Joseph's Regional Medical CenterComment on above:Performed By: #### EDITA UMIC #### Testing performed at [address] [address]SUSVMQJBFOxbpgxUZKVUkicsJefferson [facility] ([facility]) on above: Performed By: #### EDITA UMIC #### Testing performed at [address] [address]WSOKWVAMHJQZgcunhAIUNMxqfvHampton Behavioral Health Center on above: Performed By: #### UMAC, UMIC #### Testing performed at [address] [address]Hicusagpkj cells LM Ql (Urine sed)1 TO 5NormalAJefferson Washington [facility] ([facility])Comment on above:Performed By: #### UMAC, UMIC #### Testing performed at [address] [address]Ypjzx Ql (Urine sed)NegativeNormalNEGGallup Indian Medical Center HospitalCommclaren [facility] hospital on above:Performed By: #### UMAC, UMIC #### Testing performed at [address], [place] [address]BCCVM COMMENTCULTURE CRITERIA NOT MET, NO CULTURE PERFORMED. NormalMatheny Medical And Educational Center HospitalComment on above:Performed By: #### UMAC, UMIC #### Testing performed at [address] [address]VBVYB RBC'SNegativeNormalNEGATIVEMatheny Medical And Educational Center HospitalComment on above:Performed By: #### UMAC, UMIC #### Testing performed at [address] [address]KVPVK WBC'SNegativeNormalNEGGallup Indian Medical Center HospitalComment on above:Performed By: #### UMAC, UMIC #### Testing performed at [address] [address]BTG CREAon 01-33-2176Tvmwsltnjn [Mass/Vol]1.22 mg/dLHigh 0.50-1.20[facility] CampusComment on above:Order Comment: Prior to first [employer] Infusion and every 2 weeks if baseline CR is within normal limits.Performed By: #### BCR #### [facility] (DEFAULT) [address] [address]JPF GFR, Ivfxdftz88 mL/min/1.73sqMLow>=60[facility] CampusComment on above:Order Comment: Prior to first [employer] Infusion and every 2 weeks if baseline CR is within normal limits. Performed By: #### BCR #### [facility] (DEFAULT) [address] [address]WFE GFR,Non Styejynn15 mL/min/1.73sqMLow>=60[facility] CampusComment on above:Order Comment: Prior to first [employer]unex Infusion and every 2 weeks if baseline CR is within normal limits. Performed By: #### BCR #### [facility] (DEFAULT) [address] [address]Mfug nitrogen [Mass/Vol]20 mg/dLNormal7-22[facility] CampusComment on above:Order Comment: Prior to first [employer]unex Infusion and every 2 weeks if baseline CR is within normal limits. Performed By: #### BCR #### [facility] (DEFAULT) [address] [address]Pzxg nitrogen/Creatinine [Mass ratio]16 mg/mgNoOhioHealth Nelsonville Health CenterComment on above:Order Comment: Prior to first [employer]unex Infusion and every 2 weeks if baseline CR is within normal limits. Performed By: #### BCR #### [facility] (DEFAULT) [address] [place] [address]FBM AND ELECTRONIC DIFFon 15-90-9528Wjlzexgye (Bld) [#/Vol] 10*3/uLNormal0.00-0.15[facility] CampusComment on above:Order Comment: Prior to first Gamunex Infusion and then every 2 weeks.until results within normal limits. Collect weekly if baseline is abnormal.Performed By: #### [id number] #### [facility] (DEFAULT) [address] [place] [address]Apindwdwb/100 WBC (Bld)0.4 %NormalTrinity Health System East CampusComment on above:Order Comment: Prior to first Gamunex Infusion and then every 2 weeks.until results within normal limits. Collect weekly if baseline is abnormal.Performed By: #### [id number] #### [facility] (DEFAULT) [address] [place] [address]HQLZ STATUSElectronic DifferentialNoOhioHealth Nelsonville Health CenterComment on above:Order Comment: Prior to first Gamunex Infusion and then every 2 weeks.until results within normal limits. Collect weekly if baseline is abnormal.Performed By: #### [id number] #### [facility] (DEFAULT) [address] [place] [address]Gpapcmihbqa (Bld) [#/Vol]0.16 10*3/uLNormal0.00-0.42[facility] CampusComment on above:Order Comment: Prior to first Gamunex Infusion and then every 2 weeks.until results within normal limits. Collect weekly if baseline is abnormal.Performed By: #### [id number] #### U [facility] (DEFAULT) [address] [address]Zphmoakgevl/100 WBC (Bld)2.1 %NormalTrinity Health System East CampusComment on above:Order Comment: Prior to first Gamunex Infusion and then every 2 weeks.until results within normal limits. Collect weekly if baseline is abnormal.Performed By: #### [id number] #### U [facility] (DEFAULT) [address] [address]Psgvckiahy (Bld) [Volume fraction]32.0 %Low34.9-44.3[facility] CampusComment on above:Order Comment: Prior to first Gamunex Infusion and then every 2 weeks.until results within normal limits. Collect weekly if baseline is abnormal.Performed By: #### [id number] #### U [facility] (DEFAULT) [address] [address]Seynmixoae (Bld) [Mass/Vol]10.1 g/dLLow11.4-15.2[facility] CampusComment on above:Order Comment: Prior to first Gamunex Infusion and then every 2 weeks.until results within normal limits. Collect weekly if baseline is abnormal.Performed By: #### [id number] #### U [facility] (DEFAULT) [address] [address]Pcjqghji Grans %0.3 %[facility]'s HospitalComment on above:Order Comment: Prior to first Gamunex Infusion and then every 2 weeks.until results within normal limits. Collect weekly if baseline is abnormal.Performed By: #### [id number] #### U [facility] (DEFAULT) [address] [address]Cxjwfggn Grans Absolute<0.04Normal<=0.09[facility] CampusComment on above:Order Comment: Prior to first Gamunex Infusion and then every 2 weeks.until results within normal limits. Collect weekly if baseline is abnormal.Performed By: #### [id number] #### [facility] (DEFAULT) [address] [address]Axvltgtjvfc (Bld) [#/Vol]2.23 10*3/uLNormal1.16-3.51[facility] CampusComment on above:Order Comment: Prior to first Gamunex Infusion and then every 2 weeks.until results within normal limits. Collect weekly if baseline is abnormal.Performed By: #### [id number] #### [facility] (DEFAULT) [address] [address]Jtaiaswgreq/100 WBC (Bld)28.8 %NormalTrinity Health System East CampusComment on above:Order Comment: Prior to first Gamunex Infusion and then every 2 weeks.until results within normal limits. Collect weekly if baseline is abnormal.Performed By: #### [id number] #### [facility] (DEFAULT) [address] [address]VWD (RBC) [Entitic vol]86.0 qJFeprco44.6-97.7[facility] CampusComment on above:Order Comment: Prior to first Gamunex Infusion and then every 2 weeks.until results within normal limits. Collect weekly if baseline is abnormal.Performed By: #### [id number] #### [facility] (DEFAULT) [address] [address]Mchi Cell Hgb27.2 dfDbzafy78.9-33.9[facility] CampusComment on above:Order Comment: Prior to first Gamunex Infusion and then every 2 weeks.until results within normal limits. Collect weekly if baseline is abnormal.Performed By: #### [id number] #### [facility] (DEFAULT) [address] [address]Etyf Cell Hgb Conc31.6 g/tTCfmsqc09.4-35.9[facility] CampusComment on above:Order Comment: Prior to first Gamunex Infusion and then every 2 weeks.until results within normal limits. Collect weekly if baseline is abnormal.Performed By: #### [id number] #### [facility] (DEFAULT) [address] [address]Tyvmnfmfe (Bld) [#/Vol]0.38 10*3/uLNormal0.22-0.87[facility] CampusComment on above:Order Comment: Prior to first Gamunex Infusion and then every 2 weeks.until results within normal limits. Collect weekly if baseline is abnormal.Performed By: #### [id number] #### [facility] (DEFAULT) [address] [address]Pqpgguzbv/100 WBC (Bld)4.9 %NormalTrinity Health System East CampusComment on above:Order Comment: Prior to first Gamunex Infusion and then every 2 weeks.until results within normal limits. Collect weekly if baseline is abnormal.Performed By: #### [id number] #### [facility] (DEFAULT) [address] [address]Cszlkxglh RBC0.0 /100 WBCNormal<=0.2[facility] CampusComment on above:Order Comment: Prior to first Gamunex Infusion and then every 2 weeks.until results within normal limits. Collect weekly if baseline is abnormal.Performed By: #### [id number] #### [facility] (DEFAULT) [address] [address]Wrewpvkd mean volume (Bld) [Entitic vol]9.4 fLNormal8.5-12.2 [facility] CampusComment on above:Order Comment: Prior to first Gamunex Infusion and then every 2 weeks.until results within normal li mits. Collect weekly if baseline is abnormal.Performed By: #### [id number] #### U [facility] (DEFAULT) [address] [address]Cijrztsih (Bld) [#/Vol]352 10*3/bBDizzdt383-509AdufTrinity Health System East CampusComment on above:Order Comment: Prior to first Gamunex Infusion and then every 2 weeks.until results within normal limits. Collect weekly if baseline is abnormal.Performed By: #### [id number] #### [facility] (DEFAULT) [address] [address]YXB (Bld) [#/Vol]3.72 10*6/uLLow3.91-5.04[facility] CampusComment on above:Order Comment: Prior to first Gamunex Infusion and then every 2 weeks.until results within normal limits. Collect weekly if baseline is abnormal.Performed By: #### [id number] #### U [facility] (DEFAULT) [address] [address]SZN Govgstxsgwuq06.3 %High10.8-14.9[facility] CampusComment on above:Order Comment: Prior to first Gamunex Infusion and then every 2 weeks.until results within normal limits. Collect weekly if baseline is abnormal.Performed By: #### [id number] #### [facility] (DEFAULT) [address] [address]Awog + Bands Auto63.5 %NormalTrinity Health System East CampusComment on above:Order Comment: Prior to first Gamunex Infusion and then every 2 weeks.until results within normal limits. Collect weekly if baseline is abnormal.Performed By: #### [id number] #### [facility] (DEFAULT) [address] [place] [address]Txba + Bands,Absolute Auto4.93 K/uLNormal1.64-7.28[facility] CampusComment on above:Order Comment: Prior to first Gamunex Infusion and then every 2 weeks.until results within normal limits. Collect weekly if baseline is abnormal.Performed By: #### [id number] #### U [facility] (DEFAULT) [address] [address]VNI (Bld) [#/Vol]7.75 10*3/uLNormal3.99-11.19[facility] CampusComment on above:Order Comment: Prior to first Gamunex Infusion and then every 2 weeks.until results within normal limits. Collect weekly if baseline is abnormal.Performed By: #### [id number] #### [facility] (DEFAULT) [address] [address]LAG CREAon 33-27-7290Ovfanybofe [Mass/Vol]1.10 mg/dLNormal 0.50-1.20[facility] CampusComment on above:Order Comment: Prior to first Gamunex Infusion and every 2 weeks if baseline CR is within normal limits.Performed By: #### BCR #### [facility] (DEFAULT) [address] [address]PLK GFR, >=60Normal>=60[facility] CampusComment on above:Order Comment: Prior to first Gamunex Infusion and every 2 weeks if baseline CR is within normal limits.Performed By: #### BCR #### [facility] (DEFAULT) [address] [address]NVS GFR,Non Banbigmz65 mL/min/1.73sqMLow>=60[facility] CampusComment on above:Order Comment: Prior to first Gamunex Infusion and every 2 weeks if baseline CR is within normal limits. Performed By: #### BCR #### [facility] (DEFAULT) [address] [address]Zfhk nitrogen [Mass/Vol]26 mg/dLHigh7-22[facility] CampusComment on above:Order Comment: Prior to first Gamunex Infusion and every 2 weeks if baseline CR is within normal limits.Performed By: #### BCR #### [facility] (DEFAULT) [address] [address]Cueq nitrogen/Creatinine [Mass ratio]24 mg/mgNormalOhio Mercy Health Anderson HospitalComment on above:Order Comment: Prior to first Gamunex Infusion and every 2 weeks if baseline CR is within normal limits. Performed By: #### BCR #### [facility] (DEFAULT) [address] [address]NSF AND ELECTRONIC DIFFon 89-50-1816Mxlzrgxyq (Bld) [#/Vol] 10*3/uLNormal0.00-0.15[facility] CampusComment on above:Order Comment: Prior to first Gamunex Infusion and every 2 weeks if baseline CR is within normal limits.Performed By: #### BCR #### [facility] (DEFAULT) [address] [address]Lzrxnoneq/100 WBC (Bld)0.3 %[facility]. [facility]'s HospitalComment on above:Order Comment: Prior to first Gamunex Infusion and every 2 weeks if baseline CR is within normal limits.Performed By: #### BCR #### [facility] (DEFAULT) [address] [address]OYCT STATUSElectronic DifferentialNormalOhio Mercy Health Anderson HospitalComment on above:Order Comment: Prior to first Gamunex Infusion and every 2 weeks if baseline CR is within normal limits.Performed By: #### BCR #### [facility] (DEFAULT) [address] [address]Xhotqzsmitc (Bld) [#/Vol]0.20 10*3/uLNormal0.00-0.42[facility] CampusComment on above:Order Comment: Prior to first Gamunex Infusion and every 2 weeks if baseline CR is within normal limits. Performed By: #### BCR #### [facility] (DEFAULT) [address] [address]Lkrdoomxaap/100 WBC (Bld)2.0 %[facility]. [facility]'s HospitalComment on above:Order Comment: Prior to first Gamunex Infusion and every 2 weeks if baseline CR is within normal limits.Performed By: #### BCR #### [facility] (DEFAULT) [address] [address]Srulupqvfy (Bld) [Volume fraction]31.0 %Low34.9-44.3[facility] CampusComment on above:Order Comment: Prior to first Gamunex Infusion and every 2 weeks if baseline CR is within normal limits. Performed By: #### BCR #### [facility] (DEFAULT) [address] [address]Ppqxsdznyj (Bld) [Mass/Vol]10.0 g/dLLow11.4-15.2[facility] CampusComment on above:Order Comment: Prior to first Gamunex Infusion and every 2 weeks if baseline CR is within normal limits. Performed By: #### BCR #### [facility] (DEFAULT) [address] [address]Mqwzebgc Grans %0.2 %[facility]'s HospitalComment on above:Order Comment: Prior to first Gamunex Infusion and every 2 weeks if baseline CR is within normal limits.Performed By: #### BCR #### [facility] (DEFAULT) [address] [address]Bwgnsjwm Grans Absolute<0.04Normal<=0.09[facility] CampusComment on above:Order Comment: Prior to first Gamunex Infusion and every 2 weeks if baseline CR is within normal limits.Performed By: #### BCR #### [facility] (DEFAULT) [address] [address]Cnjctumjtvl (Bld) [#/Vol]2.96 10*3/uLNormal1.16-3.51[facility] CampusComment on above:Order Comment: Prior to first Gamunex Infusion and every 2 weeks if baseline CR is within normal limits. Performed By: #### BCR #### [facility] (DEFAULT) [address] [address]Liclltbciuw/100 WBC (Bld)29.9 %[facility]'s HospitalComment on above:Order Comment: Prior to first Gamunex Infusion and every 2 weeks if baseline CR is within normal limits.Performed By: #### BCR #### [facility] (DEFAULT) [address] [place] [address]MDH (RBC) [Entitic vol]84.9 gHFfcqvh06.6-97.7[facility] CampusComment on above:Order Comment: Prior to first Gamunex Infusion and every 2 weeks if baseline CR is within normal limits. Performed By: #### BCR #### [facility] [facility] (DEFAULT) [address] [place] [address] 26998Xmyt Cell Hgb27.4 uiEqcmfm71.9-33.9[facility] CampusComment on above:Order Comment: Prior to first Gamunex Infusion and every 2 weeks if baseline CR is within normal limits.Performed By: #### BCR #### [facility] (DEFAULT) [address] [place] [address] 34464Mtzq Cell Hgb Conc32.3 g/pOUbavtt69.4-35.9[facility] CampusComment on above:Order Comment: Prior to first Gamunex Infusion and every 2 weeks if baseline CR is within normal limits. Performed By: #### BCR #### [facility] (DEFAULT) [address] [place] [address] 45406Mcungpyji (Bld) [#/Vol]0.50 10*3/uLNormal0.22-0.87[facility] CampusComment on above:Order Comment: Prior to first Gamunex Infusion and every 2 weeks if baseline CR is within normal limits. Performed By: #### BCR #### [facility] (DEFAULT) [address] [place] [address] 65208Rqkoonokw/100 WBC (Bld)5.1 %NormalTrinity Health System East CampusComment on above:Order Comment: Prior to first Gamunex Infusion and every 2 weeks if baseline CR is within normal limits.Performed By: #### BCR #### [facility] (DEFAULT) [address] [place] [address] 56759Bcxdbhvmg RBC0.0 /100 WBCNormal<=0.2[facility] CampusComment on above:Order Comment: Prior to first Gamunex Infusion and every 2 weeks if baseline CR is within normal limits.Performed By: #### BCR #### [facility] (DEFAULT) [address] [place] [address] 96853Qqtwvptp mean volume (Bld) [Entitic vol]9.2 fLNormal8.5-12.2 [facility] CampusComment on above:Order Comment: Prior to first Gamunex Infusion and every 2 weeks if baseline CR is within normal angel its.Performed By: #### BCR #### [facility] (DEFAULT) [address] [place] [address] 74152Zqmdkidth (Bld) [#/Vol]372 10*3/fFOraitq125-682OwprTrinity Health System East CampusComment on above:Order Comment: Prior to first Gamunex Infusion and every 2 weeks if baseline CR is within normal limits. Performed By: #### BCR #### [facility] (DEFAULT) [address] [place] [address] 12404ION (Bld) [#/Vol]3.65 10*6/uLLow3.91-5.04[facility] CampusComment on above:Order Comment: Prior to first Gamunex Infusion and every 2 weeks if baseline CR is within normal limits.Performed By: #### BCR #### [facility] (DEFAULT) [address] [place] [address] 42266OLE Duoewnvfjmgt22.7 %Xcoeqx33.8-14.9[facility] CampusComment on above:Order Comment: Prior to first Gamunex Infusion and every 2 weeks if baseline CR is within normal limits.Performed By: #### BCR #### [facility] (DEFAULT) [address] [place] [address] 83564Fedv + Bands Auto62.5 %NormalTrinity Health System East CampusComment on above:Order Comment: Prior to first Gamunex Infusion and every 2 weeks if baseline CR is within normal limits.Performed By: #### BCR #### [facility] (DEFAULT) [address] [place] [address] 74239Gksb + Bands,Absolute Auto6.18 K/uLNormal1.64-7.28[facility] CampusComment on above:Order Comment: Prior to first Gamunex Infusion and every 2 weeks if baseline CR is within normal limits. Performed By: #### BCR #### [facility] (DEFAULT) [address] [address]VOQ (Bld) [#/Vol]9.89 10*3/uLNormal3.99-11.19[facility] CampusComment on above:Order Comment: Prior to first Gamunex Infusion and every 2 weeks if baseline CR is within normal limits. Performed By: #### BCR #### [facility] (DEFAULT) [address] [place] [address] 92105YIE/HRT MACULA OUon 85-25-7192PDP/HRT MACULA OURight Eye Quality was good. Findings include subretinal fluid. Interval change is better. Recommendation for management is to continue treatment. Left Eye Quality was good. Findings include subretinal fluid. Interval change is better. Recommendation for management is to continue treatment.[facility] Anthony's HospitalApply dressingon 18-79-9631Yzqnqkl dressing OhioHealthApply dressingOrdered By: Virginia Aguirre on 36-79-2477GftsKshrjdWKD CREA on 35-46-8817Texiltxbdx [Mass/Vol]0.99 mg/dLNormal0.50-1.20[facility] CampusComment on above:Order Comment: Prior to first Gamunex Infusion and every 2 weeks if baseline CR is within normal limits.Performed By: #### BCR #### [facility] (DEFAULT) [address] [address]YZM GFR, >=60Normal>=60[facility] CampusComment on above:Order Comment: Prior to first Gamunex Infusion and every 2 weeks if baseline CR is within normal limits.Performed By: #### BCR #### [facility] (DEFAULT) [address] [address]NML GFR,Non Gjorhboc79 mL/min/1.73sqMLow>=60[facility] CampusComment on above:Order Comment: Prior to first Gamunex Infusion and every 2 weeks if baseline CR is within normal limits. Performed By: #### BCR #### [facility] (DEFAULT) [address] [place] [address] 41875Nlzw nitrogen [Mass/Vol]25 mg/dLHigh7-22[facility] CampusComment on above:Order Comment: Prior to first Gamunex Infusion and every 2 weeks if baseline CR is within normal limits.Performed By: #### BCR #### [facility] (DEFAULT) [address] [place] [address] 58794Xjjm nitrogen/Creatinine [Mass ratio]25 mg/mgNoOhioHealth Nelsonville Health CenterComment on above:Order Comment: Prior to first Gamunex Infusion and every 2 weeks if baseline CR is within normal limits. Performed By: #### BCR #### [facility] (DEFAULT) [address] [place] [address] 36345GEL AND ELECTRONIC DIFFon 16-63-2782Ywagowcwy (Bld) [#/Vol] 0.04 10*3/uLNormal0.00-0.15[facility] CampusComment on above:Order Comment: Prior to first Gamunex Infusion and every 2 weeks if baseline CR is within normal limits.Performed By: #### BCR #### [facility] (DEFAULT) [address] [place] [address] 49689Xejxcvphd/100 WBC (Bld)0.4 %NormalTrinity Health System East CampusComment on above:Order Comment: Prior to first Gamunex Infusion and every 2 weeks if baseline CR is within normal limits.Performed By: #### BCR #### [facility] (DEFAULT) [address] [place] [address] 60540RVLS STATUSElectronic DifferentialNoOhioHealth Nelsonville Health CenterComment on above:Order Comment: Prior to first Gamunex Infusion and every 2 weeks if baseline CR is within normal limits.Performed By: #### BCR #### [facility] (DEFAULT) [address] [place] [address] 17819Fvnwzchycbv (Bld) [#/Vol]0.13 10*3/uLNormal0.00-0.42[facility] CampusComment on above:Order Comment: Prior to first Gamunex Infusion and every 2 weeks if baseline CR is within normal limits. Performed By: #### BCR #### [facility] (DEFAULT) [address] [address]Fwwnxjtclce/100 WBC (Bld)1.4 %St. Anthony's HospitalComment on above:Order Comment: Prior to first Gamunex Infusion and every 2 weeks if baseline CR is within normal limits.Performed By: #### BCR #### [facility] (DEFAULT) [address] [place] [address] 98019Qukbqjnaii (Bld) [Volume fraction]33.6 %Low34.9-44.3[facility] CampusComment on above:Order Comment: Prior to first Gamunex Infusion and every 2 weeks if baseline CR is within normal limits. Performed By: #### BCR #### [facility] (DEFAULT) [address] [address]Lywcsfufad (Bld) [Mass/Vol]10.6 g/dLLow11.4-15.2[facility] CampusComment on above:Order Comment: Prior to first Gamunex Infusion and every 2 weeks if baseline CR is within normal limits. Performed By: #### BCR #### [facility] (DEFAULT) [address] [place] [address] 20869Onrzolaj Grans %0.2 %St. Anthony's HospitalComment on above:Order Comment: Prior to first Gamunex Infusion and every 2 weeks if baseline CR is within normal limits.Performed By: #### BCR #### [facility] (DEFAULT) [address] [place] [address] 72595Uslktzor Grans Absolute<0.04Normal<=0.09[facility] CampusComment on above:Order Comment: Prior to first Gamunex Infusion and every 2 weeks if baseline CR is within normal limits.Performed By: #### BCR #### [facility] (DEFAULT) [address] [place] [address] 93238Nuhbxtcmvvr (Bld) [#/Vol]2.53 10*3/uLNormal1.16-3.51[facility] CampusComment on above:Order Comment: Prior to first Gamunex Infusion and every 2 weeks if baseline CR is within normal limits. Performed By: #### BCR #### [facility] (DEFAULT) [address] [address]Ftvaukdhuqn/100 WBC (Bld)27.2 %NormalTrinity Health System East CampusComment on above:Order Comment: Prior to first Gamunex Infusion and every 2 weeks if baseline CR is within normal limits.Performed By: #### BCR #### [facility] (DEFAULT) [address] [address]ZKU (RBC) [Entitic vol]86.4 bGAbutwj69.6-97.7[facility] CampusComment on above:Order Comment: Prior to first Gamunex Infusion and every 2 weeks if baseline CR is within normal limits. Performed By: #### BCR #### [facility] (DEFAULT) [address] [address]Wrbi Cell Hgb27.2 ovVstiob32.9-33.9[facility] CampusComment on above:Order Comment: Prior to first Gamunex Infusion and every 2 weeks if baseline CR is within normal limits.Performed By: #### BCR #### [facility] (DEFAULT) [address] [address]Cgtq Cell Hgb Conc31.5 g/eEJvooqw61.4-35.9[facility] CampusComment on above:Order Comment: Prior to first Gamunex Infusion and every 2 weeks if baseline CR is within normal limits. Performed By: #### BCR #### [facility] (DEFAULT) [address] [address]Exfkarawr (Bld) [#/Vol]0.60 10*3/uLNormal0.22-0.87[facility] CampusComment on above:Order Comment: Prior to first Gamunex Infusion and every 2 weeks if baseline CR is within normal limits. Performed By: #### BCR #### [facility] (DEFAULT) [address] [address]Kkgzcfzim/100 WBC (Bld)6.4 %NormalTrinity Health System East CampusComment on above:Order Comment: Prior to first Gamunex Infusion and every 2 weeks if baseline CR is within normal limits.Performed By: #### BCR #### [facility] (DEFAULT) [address] [place] [address] 35946Gkyzzffbq RBC0.0 /100 WBCNormal<=0.2[facility] CampusComment on above:Order Comment: Prior to first Gamunex Infusion and every 2 weeks if baseline CR is within normal limits.Performed By: #### BCR #### [facility] (DEFAULT) [address] [place] [address] 74319Ijsfdbvp mean volume (Bld) [Entitic vol]9.5 fLNormal8.5-12.2 [facility] CampusComment on above:Order Comment: Prior to first Gamunex Infusion and every 2 weeks if baseline CR is within normal angel its.Performed By: #### BCR #### [facility] (DEFAULT) [address] [place] [address] 60603Fpxzsmbud (Bld) [#/Vol]365 10*3/cFButtmi766-267YzefTrinity Health System East CampusComment on above:Order Comment: Prior to first Gamunex Infusion and every 2 weeks if baseline CR is within normal limits. Performed By: #### BCR #### [facility] (DEFAULT) [address] [place] [address] 93724EBR (Bld) [#/Vol]3.89 10*6/uLLow3.91-5.04[facility] CampusComment on above:Order Comment: Prior to first Gamunex Infusion and every 2 weeks if baseline CR is within normal limits.Performed By: #### BCR #### [facility] (DEFAULT) [address] [place] [address] 71194MSV Fdxlhkuglhyf02.5 %Fhbxfl39.8-14.9[facility] CampusComment on above:Order Comment: Prior to first Gamunex Infusion and every 2 weeks if baseline CR is within normal limits.Performed By: #### BCR #### [facility] (DEFAULT) [address] [place] [address] 28215Oxkp + Bands Auto64.4 %NormalTrinity Health System East CampusComment on above:Order Comment: Prior to first Gamunex Infusion and every 2 weeks if baseline CR is within normal limits.Performed By: #### BCR #### [facility] (DEFAULT) [address] [place] [address] 58456Gofp + Bands,Absolute Auto5.99 K/uLNormal1.64-7.28[facility] CampusComment on above:Order Comment: Prior to first Gamunex Infusion and every 2 weeks if baseline CR is within normal limits. Performed By: #### BCR #### [facility] (DEFAULT) [address] [place] [address] 92130KUE (Bld) [#/Vol]9.31 10*3/uLNormal3.99-11.19[facility] CampusComment on above:Order Comment: Prior to first Gamunex Infusion and every 2 weeks if baseline CR is within normal limits. Performed By: #### BCR #### [facility] (DEFAULT) [address] [place] [address] 16053GRJ Ioana method (Bld) [Velocity]Ordered By: Terence Martinze on 36-48-3186HIC (Bld) [Velocity]64 mm/Phaneuf HospitalioHealthInterpretation and review of laboratory resultsAbnormalOhioHealthOhioHealthOCT OPTIC NERVE OUon [id number] Health Lorain HospitalRadiology Study observation (narrative)U [facility] HospitalBUN CREAon 41-65-3966Hfzvqnrlee [Mass/Vol]1.13 mg/dL0.50 - 1.20 mg/dLU [facility] HospitalGFR/1.73 sq M.predicted MDRD (S/P/Bld) [Vol rate/Area]50 mL/min/{1.73_m2}Low>=60 mL/min/1.73sqKindred Healthcare GFR/1.73 sq M.predicted MDRD (S/P/Bld) [Vol rate/Area]mL/min/{1.73_m2}>=60 mL/min/1.73sqKindred HealthcareInterpretation and review of laboratory resultsAbnoProMedica Flower HospitalUrea nitrogen [Mass/Vol]20 mg/dL7 - 22 mg/dLOSU [facility] HospitalUrea nitrogen/Creatinine [Mass ratio]18 mg/mgOSU [facility] HospitalOSMercy Health Lorain HospitalCBC AND ELECTRONIC DIFFon 02-29-4911Fbutyaaya (Bld) [#/Vol]10*3/uL0.00 - 0.15 K/uLOSMercy Health Lorain HospitalBasophils/100 WBC (Bld)0.3 %[facility] HospitalDIFF STATUSElectronic DifferentialOSMercy Health Lorain HospitalEosinophils (Bld) [#/Vol]0.16 10*3/uL0.00 - 0.42 K/uLOSMercy Health Lorain HospitalEosinophils/100 WBC (Bld)2.1 %[facility] HospitalErythrocyte distribution width (RBC) [Ratio]14.0 %10.8 - 14.9 %[facility] HospitalHematocrit (Bld) [Volume fraction]33.7 %Low34.9 - 44.3 % [facility] HospitalHemoglobin (Bld) [Mass/Vol]10.3 g/dLLow11.4 - 15.2 g/dL [facility] HospitalImmature granulocytes (Bld) [#/Vol]10*3/uL<=0.09 K/uL [facility] HospitalImmature granulocytes/100 WBC (Bld)0.3 %[facility] HospitalInterpretation and review of laboratory resultsAbnoProMedica Flower HospitalLymphocytes (Bld) [#/Vol]2.21 10*3/uL1.16 - 3.51 K/uLSt. Elizabeth Hospital CenterLymphocytes/100 WBC (Bld)29.3 %[facility] Medical CenterH (RBC) [Entitic mass]27.5 pg25.9 - 33.9 pgMetroHealth Cleveland Heights Medical CenterHC (RBC) [Mass/Vol]30.6 g/dLLow31.4 - 35.9 g/dLOhioHealth Riverside Methodist HospitalMCV (RBC) [Entitic vol]90.1 fL79.6 - 97.7 [facility] CenterMonocytes (Bld) [#/Vol]0.46 10*3/uL0.22 - 0.87 K/[facility] HospitalMonocytes/100 WBC (Bld)6.1 %[facility] HospitalNeutrophils (Bld) [#/Vol]4.66 10*3/uL1.64 - 7.28 [facility] SystemNucleated RBC/100 WBC (Bld) [Ratio]0.0 %<=0.2 /100 WBCOhioHealth Riverside Methodist HospitalPlatelet mean volume (Bld) [Entitic vol]9.5 fL 8.5 - 12.2 [facility] CenterPlatelets (Bld) [#/Vol]357 10*3/uL150 - 393 K/[facility] Memorial HospitalRBC (Bld) [#/Vol]3.74 10*6/uLLowUniversity Hospitals Elyria Medical Centeregmented neutrophils/100 WBC (Bld)61.9 %[facility] WBC (Bld) [#/Vol]7.53 10*3/uL3.99 - 11.19 K/[facility] HospitalXR MYELOMA SURVEYon [id number]: No discrete lytic lesions or pathologic fractures. RADIOLOGYEXAM: XR MYELOMA SURVEY, 09/26/2020 14:58 PM CLINICAL [...] AP Chest: No obvious displaced rib fracture. [facility] HospitalIra Gonzalez MD - 09/26/2020 EXAM: XR MYELOMA [...] No discrete lytic lesions or pathologic fractures. [facility] HospitalRadiology Study observation (narrative)[facility] HospitalXR MYELOMA SURVEYOrdered By: Ira Gonzalez on [id number] [facility] Work Phone: BUN CREAon 70-85-1989Ocoxegerzg [Mass/Vol]1.19 mg/dL 0.50 - 1.20 mg/dLOSMercy Health Lorain HospitalGFR/1.73 sq M.predicted MDRD (S/P/Bld) [Vol rate/Area]47 mL/min/{1.73_m2}Low>=60 mL/min/1.73sqKindred HealthcareGFR/1.73 sq M.predicted MDRD (S/P/Bld) [Vol rate/Area]57 mL/min/{1.73_m2} Low>=60 mL/min/1.73sqKindred HealthcareInterpretation and review of laboratory resultsAbnormalOFisher-Titus Medical CenterUrea nitrogen [Mass/Vol]26 mg/dLHigh7 - 22 mg/dLOhioHealth [facility]ide Methodist HospitalUrea nitrogen/Creatinine [Mass ratio]22 mg/mgOSMercy Health Lorain HospitalOSMercy Health Lorain HospitalCBC AND ELECTRONIC DIFFon 77-10-1177Vcrwufcbj (Bld) [#/Vol]0.05 10*3/uL0.00 - 0.15 K/uL [facility] HospitalBasophils/100 WBC (Bld)0.6 %[facility] DIFF STATUSElectronic DifferentialOSMercy Health Lorain HospitalEosinophils (Bld) [#/Vol]0.24 10*3/uL0.00 - 0.42 K/uLOhioHealth Riverside Methodist HospitalEosinophils/100 WBC (Bld)2.8 %[facility] HospitalErythrocyte distribution width (RBC) [Ratio] 13.9 %10.8 - 14.9 %[facility] HospitalHematocrit (Bld) [Volume fraction] 33.5 %Low34.9 - 44.3 %[facility] HospitalHemoglobin (Bld) [Mass/Vol]10.7 g/dLLow11.4 - 15.2 g/dLOhioHealth [facility]ide Methodist HospitalImmature granulocytes (Bld) [#/Vol]10*3/uL<=0.09 K/uLOhioHealth [facility]ide Methodist HospitalImmature granulocytes/100 WBC (Bld)0.2 %[facility] HospitalInterpretation and review of laboratory resultsAbnormVeterans Health AdministrationLymphocytes (Bld) [#/Vol]2.63 10*3/uL 1.16 - 3.51 K/uLOhioHealth Riverside Methodist HospitalLymphocytes/100 WBC (Bld)30.6 %[facility] HospitalMCH (RBC) [Entitic mass]28.1 pg25.9 - 33.9 pgOSMercy Health Lorain HospitalMCHC (RBC) [Mass/Vol]31.9 g/dL31.4 - 35.9 g/dLOhioHealth Riverside Methodist HospitalMCV (RBC) [Entitic vol]87.9 fL79.6 - 97.7 [facility] Monocytes (Bld) [#/Vol]0.50 10*3/uL0.22 - 0.87 K/uLOhioHealth [facility] Monocytes/100 WBC (Bld)5.8 %[facility] HospitalNeutrophils (Bld) [#/Vol] 5.15 10*3/uL1.64 - 7.28 K/uLOhioHealth Riverside Methodist HospitalNucleated RBC/100 WBC (Bld) [Ratio]0.0 %<=0.2 /100 WBCOhioHealth [facility]ide [facility] HospitalPlatelet mean volume (Bld) [Entitic vol]9.2 fL8.5 - 12.2 [facility] CenterPlatelets (Bld) [#/Vol] 377 10*3/uL150 - 393 K/uLOhioHealth Riverside Methodist HospitalRBC (Bld) [#/Vol]3.81 10*6/uL LowOSU Centervilleegmented neutrophils/100 WBC (Bld)60.0 %[facility] HospitalWBC (Bld) [#/Vol]8.59 10*3/uL3.99 - 11.19 K/uLOSU [facility] HospitalOSU [facility] HospitalCBC(NO DIFF)on 91-60-1778Dghfpalgink distribution width (RBC) [Ratio]15.0 %High11.5-14.5AParkview Health Bryan HospitalComment on above: Performed By: #### HEMOG, CMPF, LIP2, RTSH, T42 #### Testing performed at [address] [address]Pjtsgevvhu (Bld) [Volume fraction]39.9 %Ajokuy39.0-48.0[facility]'S Medical CenterComment on above:Performed By: #### HEMOG, CMPF, LIP2, RTSH, T42 #### Testing performed at [address] [address]Gqsrnjtfhz (Bld) [Mass/Vol]13.3 g/yMZnbtpr63.0-16.0[facility] Medical CenterComment on above:Performed By: #### HEMOG, CMPF, LIP2, RTSH, T42 #### Testing performed at [address] [address]WIO (RBC) [Entitic mass]28.3 asCrvscu63.0-35.0[facility] Medical CenterComment on above:Performed By: #### HEMOG, CMPF, LIP2, RTSH, T42 #### Testing performed at [address] [address]DWVI (RBC) [Mass/Vol]33.4 g/mJHohznn08.0-37.0[facility] Medical CenterComment on above:Performed By: #### HEMOG, CMPF, LIP2, RTSH, T42 #### Testing performed at [address] [address]KVV (RBC) [Entitic vol]84.7 rXEwhjnh67.0-100.0[facility]restline HospitalComment on above:Performed By: #### HEMOG, CMPF, LIP2, RTSH, T42 #### Testing performed at [address] [address]Agprgpby mean volume (Bld) [Entitic vol]6.9 fLLow7.4-11.0[facility] Medical CenterComment on above:Result Comment: Testing performed at [place] [id number] By: #### HEMOG, CMPF, LIP2, RTSH, T42 #### Testing performed at [address] [address]Xaqivwmbl (Bld) [#/Vol]275 10*3/lLKppmne108.0-400.0[facility] Medical CenterComment on above:Performed By: #### HEMOG, CMPF, LIP2, RTSH, T42 #### Testing performed at [address] [address]RVW (Bld) [#/Vol]4.72 10*6/uLNormal4.0-5.4AParkview Health Bryan Hospital Comment on above:Performed By: #### HEMOG, CMPF, LIP2, RTSH, T42 #### Testing performed at [address] [address]OKF (Bld) [#/Vol]6.7 10*3/uLNormal3.6-11.0[facility] Comment on above:Performed By: #### HEMOG, CMPF, LIP2, RTSH, T42 #### Testing performed at [address] [address]JSY FASTINGon 1A:G RATIO1.2 RATIOLow1.3-2.2AParkview Health Bryan HospitalComment on above:Performed By: #### HEMOG, CMPF, LIP2, RTSH, T42 #### Testing performed at [place] [id number] G/dlNormal3.5-5.0[facility]S Medical CenterComment on above:Performed By: #### HEMOG, CMPF, LIP2, RTSH, T42 #### Testing performed at [address] [address]YDN [Catalytic activity/Vol]103 U/UFkjezf63-585CrjszBarney Children'S Medical CenterComment on above:Performed By: #### HEMOG, CMPF, LIP2, RTSH, T42 #### Testing performed at [address] [address]XSV [Catalytic activity/Vol]17 U/LNormal<35[facility] Comment on above:Performed By: #### HEMOG, CMPF, LIP2, RTSH, T42 #### Testing performed at [address] [address]QQD [Catalytic activity/Vol]23 U/COhbcsr93-73GmcqnBarney Children'S Medical CenterComment on above:Performed By: #### HEMOG, CMPF, LIP2, RTSH, T42 #### Testing performed at [address] [address]Kzbuqwhry [Mass/Vol]0.1 mg/dLLow0.2-1.3AParkview Health Bryan Hospital Comment on above:Performed By: #### HEMOG, CMPF, LIP2, RTSH, T42 #### Testing performed at [address] [address]Ffwvfcq [Mass/Vol]9.2 mg/dLNormal8.4-10.2AParkview Health Bryan Hospital Comment on above:Performed By: #### HEMOG, CMPF, LIP2, RTSH, T42 #### Testing performed at [address] [address]Tvvicigk [Moles/Vol]108 mmol/RHutg20-203PsdgtBarney Children'S Medical Center Comment on above:Result Comment: Please note: Triglyceride levels of 600mg/dL or higher may positively bias chlorideresults by approximately 2.1 mmolPerformed By: #### HEMOG, CMPF, LIP2, RTSH, T42 #### Testing performed at [address] [address]QI7 [Moles/Vol]23 mmol/BTntjcn09-61IfjtsBarney Children'S Medical CenterComment on above:Performed By: #### HEMOG, CMPF, LIP2, RTSH, T42 #### Testing performed at [place] [id number] [Mass/Vol]1.00 mg/dLNormal0.7-1.2AParkview Health Bryan HospitalComment on above:Performed By: #### HEMOG, CMPF, LIP2, RTSH, T42 #### Testing performed at [address] [address]YIG. GFR,>60NormFort Defiance Indian HospitalComment on above:Performed By: #### HEMOG, CMPF, LIP2, RTSH, T42 #### Testing performed at [place] [id number]. GFR,Non >60[facility] Comment on above:Performed By: #### HEMOG, CMPF, LIP2, RTSH, T42 #### Testing performed at [address] [address]PIW InformationAverage GFR for 50-59 years old = 93.NormalBarney Children'S Medical CenterComment on above:Result Comment: Chronic Kidney disease, GFR = <60. Kidney failure, GFR = <15. The GFR estimate is not adjusted for extreme body surface area or acute process, nor has it been validated for women or ethnic groups other than and . Testing performed at [place] [id number] By: #### HEMOG, CMPF, LIP2, RTSH, T42 #### Testing performed at [place] [id number] [Mass/Vol]193 mg/tMPxnl19-991DjyyrBarney Children'S Medical Center Comment on above:Result Comment: NORMAL <100 mg/dL PREDIABETES 101-126 mg/dL DIABETES 126 mg/dL or higherPerformed By: #### HEMOG, CMPF, LIP2, RTSH, T42 #### Testing performed at [address] [address]Epziscgsg [Moles/Vol]5.4 mmol/LHigh3.5-5.1AParkview Health [facility] Hospital Comment on above:Performed By: #### HEMOG, CMPF, LIP2, RTSH, T42 #### Testing performed at [address] [address]Rprcjlr [Mass/Vol]7.4 g/dLNormal6.3-8.2AParkview Health Bryan Hospital Comment on above:Performed By: #### HEMOG, CMPF, LIP2, RTSH, T42 #### Testing performed at [place] [address]Sodium [Moles/Vol]140 mmol/HTpbcnc402-236FnedmBarney Children'S Medical Center Comment on above:Performed By: #### HEMOG, CMPF, LIP2, RTSH, T42 #### Testing performed at [place] [address]Urea nitrogen [Mass/Vol]19 mg/dLNormal7-20[facility] Comment on above:Performed By: #### HEMOG, CMPF, LIP2, RTSH, T42 #### Testing performed at [address] [address]VZBX T4on 77-60-8094Tiuc T4 [Mass/Vol]1.01 ng/dLNormal0.78-2.19 Bar[facility] Children'S Medical CenterComment on above:Result Comment: Testing performed at [place] [address]Performed By: #### HEMOG, CMPF, LIP2, RTSH, T42 #### Testing performed at [address] [address]RAZRSQYOVO A1Con 74-69-6712Ptveyob [Mass/Vol]232 mg/dLNormal Barney Children'S Medical CenterComment on above:Result Comment: Testing performed at [place] [address]Performed By: #### HA1CT #### Testing performed at [address] [address]ImM0m (Bld) [Mass fraction]9.7 %High0-6AParkview Health Bryan Hospital Comment on above:Result Comment: NORMAL <5.7% PREDIABETES 5.7-6.4% DIABETES 6.5% OR HIGHERPerformed By: #### HA1CT #### Testing performed at [address] [address]ODZMY PROFILEon 89-00-5971Ptksktwtlmj [Mass/Vol]232 mg/dLHigh 107-217Barney Children'S Medical CenterComment on above:Performed By: #### HEMOG, CMPF, LIP2, RTSH, T42 #### Testing performed at [address] [address]Oaiouawoxjz in HDL [Mass/Vol]51 mg/zTThazls72-93SfuacBarney Children'S Medical CenterComment on above:Performed By: #### HEMOG, CMPF, LIP2, RTSH, T42 #### Testing performed at [address] [address]Jdlotgpbkju in LDL [Mass/Vol]154 mg/dLNoMimbres Memorial HospitalComment on above:Performed By: #### HEMOG, CMPF, LIP2, RTSH, T42 #### Testing performed at [address] [address]Wdzurlqmzvr in VLDL [Mass/Vol]27 mg/dLHigh5.0-25Barney Children'S Medical CenterComment on above:Performed By: #### HEMOG, CMPF, LIP2, RTSH, T42 #### Testing performed at [address] [address]Vcrxwdtmxme.total/Cholesterol in HDL [Mass ratio]4.55 {ratio} NormalBarney Children'S Medical CenterComment on above:Result Comment: RISK TOTAL/HDL RATIO MEN WOMEN 1/2 AVERAGE 3.43 3.27 AVERAGE 4.97 4.44 2X AVERAGE 9.55 7.05 3X AVERAGE 23.99 11.04 Testing performed at [place], [place] [address]Mnmrdfbzc By: #### HEMOG, CMPF, LIP2, RTSH, T42 #### Testing performed at [address] [address]Qjlequfisjje [Mass/Vol]133 mg/dLNormal0-150[facility] Comment on above:Performed By: #### HEMOG, CMPF, LIP2, RTSH, T42 #### Testing performed at [place] [address]MALB/CREAT RATIO,URINEon 84-31-8462AGKI/CREAT RATIO,URINE30.9 mg MALB/g CREATHigh1.3-30.0Barney Children'S Medical CenterComment on above:Result Comment: Testing performed at [place] [address]Performed By: #### MCRAT #### Testing performed at [place] [address]MICROALBUMIN,RANDOM URINE23.6 mg/LHigh0-16.7AParkview Health Bryan HospitalComment on above:Performed By: #### MCRAT #### Testing performed at [place] [address]URINE CREATININE BMGSBX87.3 MG/DLNormalAParkview Health Bryan Hospital Comment on above:Result Comment: NO NORMAL VALUES ESTABLISHED FOR RANDOM SPECIMENSPerformed By: #### MCRAT #### Testing performed at [place] [address]TSH,REFLEX FREE T4on 81-38-5473QMD,REFLEX FREE T46.890 uIU/ML High0.46-4.68Barney Children'S Medical CenterComment on above:Result Comment: Testing performed at [place] [address]Performed By: #### HEMOG, CMPF, LIP2, RTSH, T42 #### Testing performed at [address] [address]IQE FASTINGon 1A:G RATIO1.2 RATIOLow1.3-2.2AParkview Health Bryan HospitalComment on above:Performed By: #### HEMOG, CMPF, LIP2, RTSH, T42 #### Testing performed at [place] [address]ALBUMIN4.1 G/dlNormal3.5-5.0Barney Children'S Medical CenterComment on above:Performed By: #### HEMOG, CMPF, LIP2, RTSH, T42 #### Testing performed at [address] [address]CVA [Catalytic activity/Vol]103 U/XNmmoxd00-292BrkmvBarney Children'S Medical CenterComment on above:Performed By: #### HEMOG, CMPF, LIP2, RTSH, T42 #### Testing performed at [address] [address]XIZ [Catalytic activity/Vol]15 U/LNormal<35[facility] Comment on above:Performed By: #### HEMOG, CMPF, LIP2, RTSH, T42 #### Testing performed at [address] [address]YCY [Catalytic activity/Vol]42 U/FVxzt09-16GslvtBarney Children'S Medical Center Comment on above:Performed By: #### HEMOG, CMPF, LIP2, RTSH, T42 #### Testing performed at [address] [place] [address]Kvaeebkuj [Mass/Vol]0.2 mg/dLNormal0.2-1.3AParkview Health [facility] Hospital Comment on above:Performed By: #### HEMOG, CMPF, LIP2, RTSH, T42 #### Testing performed at [address] [address]Mbwjgmu [Mass/Vol]9.3 mg/dLNormal8.4-10.2AParkview Health [facility] Hospital Comment on above:Performed By: #### HEMOG, CMPF, LIP2, RTSH, T42 #### Testing performed at [address] [address]Eotkulum [Moles/Vol]111 mmol/ITzap36-914NkwijBarney Children'S Medical Center Comment on above:Result Comment: Please note: Triglyceride levels of 600mg/dL or higher may positively bias chlorideresults by approximately 2.1 mmolPerformed By: #### HEMOG, CMPF, LIP2, RTSH, T42 #### Testing performed at [address] [address]GE6 [Moles/Vol]17 mmol/LCritically bud61-56IyoxeBarney Children'S Medical Center Comment on above:Result Comment: CALLED TO AND READ BACK BY DAVE CHATTERJEE AT 1115 ON 05.15.2020erformed By: #### HEMOG, CMPF, LIP2, RTSH, T42 #### Testing performed at [place] [address]Creatinine [Mass/Vol]1.10 mg/dLNormal0.7-1.2AParkview Health Bryan HospitalComment on above:Performed By: #### HEMOG, CMPF, LIP2, RTSH, T42 #### Testing performed at [address] [address]SXZ. GFR,>60NormalAParkview Health Bryan HospitalComment on above:Performed By: #### HEMOG, CMPF, LIP2, RTSH, T42 #### Testing performed at [address] [address]PJQ. GFR,Non Bgrcheti93 ml/min/1.73sq.mNormalBarney Children'S Medical CenterComment on above:Performed By: #### HEMOG, CMPF, LIP2, RTSH, T42 #### Testing performed at [address] [address]JOQ InformationAverage GFR for 50-59 years old = 93.NormalBarney Children'S Medical CenterComment on above:Result Comment: Chronic Kidney disease, GFR = <60. Kidney failure, GFR = <15. The GFR estimate is not adjusted for extreme body surface area or acute process, nor has it been validated for women or ethnic groups other than and . Testing performed at [place], [place] [address]Oaagiddtm By: #### HEMOG, CMPF, LIP2, RTSH, T42 #### Testing performed at [place] [address]Glucose [Mass/Vol]190 mg/hNLcaa67-844NkaaeBarney Children'S Medical Center Comment on above:Result Comment: NORMAL <100 mg/dL PREDIABETES 101-126 mg/dL DIABETES 126 mg/dL or higherPerformed By: #### HEMOG, CMPF, LIP2, RTSH, T42 #### Testing performed at [address] [address]Imheufbhw [Moles/Vol]3.7 mmol/LNormal3.5-5.1AParkview Health Bryan HospitalComment on above:Performed By: #### HEMOG, CMPF, LIP2, RTSH, T42 #### Testing performed at [address] [address]Vcggiop [Mass/Vol]7.6 g/dLNormal6.3-8.2AParkview Health [facility] Hospital Comment on above:Performed By: #### HEMOG, CMPF, LIP2, RTSH, T42 #### Testing performed at [address] [address]Yxwxjd [Moles/Vol]138 mmol/YRqynhn427-857MeunjBarney Children'S Medical Center Comment on above:Performed By: #### HEMOG, CMPF, LIP2, RTSH, T42 #### Testing performed at [address] [address]Fbkb nitrogen [Mass/Vol]24 mg/dLRoane General Hospital7-20[facility] Comment on above:Performed By: #### HEMOG, CMPF, LIP2, RTSH, T42 #### Testing performed at [address] [address]VRFZILNJKM A1Con 18-50-8289Tocjkva [Mass/Vol]240 mg/dLNormal Barney Children'S Medical CenterComment on above:Result Comment: Testing performed at [place], [place] [address]Ykeoekmsj By: #### HEMOG, CMPF, LIP2, RTSH, T42 #### Testing performed at [address] [address]XlX8p (Bld) [Mass fraction]10.0 %High0-6AParkview Health Bryan Hospital Comment on above:Result Comment: NORMAL <5.7% PREDIABETES 5.7-6.4% DIABETES 6.5% OR HIGHERPerformed By: #### HEMOG, CMPF, LIP2, RTSH, T42 #### Testing performed at [address] [address]XXNNN PROFILEon 93-33-0245Jckbqfgkjrv [Mass/Vol]228 mg/dLHigh 107-217Barney Children'S Medical CenterComment on above:Performed By: #### HEMOG, CMPF, LIP2, RTSH, T42 #### Testing performed at [address] [address]Hjibvfbyyra in HDL [Mass/Vol]36 mg/jJLiuadc03-34LwxstBarney Children'S Medical CenterComment on above:Performed By: #### HEMOG, CMPF, LIP2, RTSH, T42 #### Testing performed at [address] [address]Webpavgmzso in LDL [Mass/Vol]161 mg/dLNormalAParkview Health Bryan HospitalComment on above:Performed By: #### HEMOG, CMPF, LIP2, RTSH, T42 #### Testing performed at [address] [address]Veayvvxgkec in VLDL [Mass/Vol]31 mg/dLHigh5.0-25Bar[facility] Children'S Medical CenterComment on above:Performed By: #### HEMOG, CMPF, LIP2, RTSH, T42 #### Testing performed at [address] [address]Ixegwymdeui.total/Cholesterol in HDL [Mass ratio]6.33 {ratio} NormalBarney Children'S Medical CenterComment on above:Result Comment: RISK TOTAL/HDL RATIO MEN WOMEN 1/2 AVERAGE 3.43 3.27 AVERAGE 4.97 4.44 2X AVERAGE 9.55 7.05 3X AVERAGE 23.99 11.04 Testing performed at [place], [place] [address]Tjoyylhyl By: #### HEMOG, CMPF, LIP2, RTSH, T42 #### Testing performed at [address] [address]Mlmncnavkdoy [Mass/Vol]157 mg/dLHigh0-150[facility] Comment on above:Performed By: #### HEMOG, CMPF, LIP2, RTSH, T42 #### Testing performed at [address] [address]KACB/CREAT RATIO,URINEon 55-06-1533IIMW/CREAT RATIO,URINE18.8 mg MALB/g CREATNormal1.3-30.0Barney Children'S Medical CenterComment on above:Result Comment: Testing performed at [place], [place] [address]Xcbaoytwv By: #### MCRAT #### Testing performed at [address] [address]NHYBMMCDEEIL,RANDOM URINE9.3 mg/LNormal0-16.7AParkview Health Bryan HospitalComment on above:Performed By: #### MCRAT #### Testing performed at [address] [address]DZAKK CREATININE YZJVFE71.4 MG/DLNoMimbres Memorial Hospital Comment on above:Result Comment: NO NORMAL VALUES ESTABLISHED FOR RANDOM SPECIMENSPerformed By: #### MCRAT #### Testing performed at [address] [address]RR RIBS LT PA Boby 71-32-8073TR RIBS LT PA CHEXAMINATION: XR RIBS LT PA CH HISTORY: Superficial [...] Electronically authenticated by: LUIS ANDRES Date: 2020-01-27 13:[address] [place], [place] [address]XR FINGER MIN 2 VIEWSon 84-25-3840RH FINGER MIN 2 VIEWS PROCEDURE: XR FINGER MIN 2 VIEWS HISTORY: Abscess of tip [...] Electronically authenticated by: LUIS ANDRES Date: 2019-12-22 10:13[facility] HospitalBLOOD UREA NITROGENon 86-62-0805Dtcr nitrogen [Mass/Vol]16 mg/dLNormal7-[facility] Hospital ColumbusCREATININE,SERUMon 10-90-9225Ncxbwedyte [Mass/Vol]Average GFR for 50-59 years old = 93.[facility] Comment on above:Result Comment: Chronic Kidney disease, GFR = <60. Kidney failure, GFR = <15. The GFR estimate is not adjusted for extreme body surface area or acute process, nor has it been validated for women or ethnic groups other than and .Creatinine [Mass/Vol]mg/dLProtestant Deaconess Hospitalatinine [Mass/Vol]52 ml/min/1.73sq.[facility] Creatinine [Mass/Vol]1.14 mg/dLNormal0.7-1.2ANewman Regional HealthFAX REQUESTon 53-21-3534MXM TO1.614.293.6111Clinton Memorial HospitalBLOOD UREA NITROGENon 92-52-4781Wbix nitrogen [Mass/Vol]23 mg/dLBurbank HospitalMercy Hospital Columbus CREATININE,SERUMon 95-91-7731Ejbbtrwqoz [Mass/Vol]38 ml/min/1.73sq.[facility] HealthcareCreatinine [Mass/Vol]47 ml/min/1.73sq.[facility] HealthcareCreatinine [Mass/Vol]Average GFR for 50-59 years old = 93.[facility] HospitalComment on above:Result Comment: Chronic Kidney disease, GFR = <60. Kidney failure, GFR = <15. The GFR estimate is not adjusted for extreme body surface area or acute process, nor has it been validated for women or ethnic groups other than and .Creatinine [Mass/Vol]1.49 mg/dLHigh0.7-1.2ANewman Regional HealthFAX REQUESTon 68-20-2243RII [phone] Regional HealthUS DUPLEX EXTREMITY DVT LEFTon 65-29-1758UX DUPLEX EXTREMITY DVT LEFT LEFT LOWER EXTREMITY [...] cm x 2.1 cm and may be reactive.NormalAviMonroe Community HospitalCulture,Bacterialon 41-42-3899Tjbpccn,BacterialTest Name: Culture,Bacterial Site: LEFT FOOT Culture Status: [...] S <= 10 F Vancomycin S 1 FNGalion Community HospitalComment on above: Performed By: #### CULT ####Unless otherwise noted, all testing performed by [facility] [address], [place] [phone]: [id number] Director: Skylar Niño M.D.Progress Noteon 42-99-7533Yflbkmu [facility] [address] [facility] [place] [address] NAME MEG [facility] [id number] 1965 DATE PROGRESS NOTE Meg is seen [...] it. PILI GILLIAM DPM D 12/16/2017 11:25 [id number] T 12/16/2017 15:16 BJZ/MODL Electronically Signed By Pili Gilliam DPM on 17 Dec 2017 19:19:18 TNoal [facility] CenterCulture,Bacterialon 12-02-2017 Culture,BacterialTest Name: Culture,Bacterial Site: LEFT FOOT Culture Status: Final Culture Report: Normal Rob Gram Stain: No WBC's No Squamous Epithelial Cells No Organisms Seen Micro Source: Wound drainageNoWright-Patterson Medical Center Comment on above:Performed By: #### CULT ####Unless otherwise noted, all testing performed by [facility] [address], [place] [phone]: [id number] Director: Skylar Niño M.D.MRI LOWER EXT JOINT W/O CONTon 61-63-0671IDN LOWER EXT JOINT W/O CONTFinal Report Accession No: [id number] Performed: Nov 25 2017 8:32AM Examination: [...] Physician: PILI NICHOLS M.D. Trans: n/a : cc:[facility] 11-03-2017 Culture,BacterialTest Name: Culture,Bacterial Site: LEFT FOOT ULCER Culture [...] <= 1 F Trimeth/Sulfa S <= 20 FNGalion Community HospitalComment on above:Performed By: #### CULT ####Unless otherwise noted, all testing performed by [facility] [facility].[place], [place] [phone]: [id number] Director: Skylar Niño M.D.Progress Noteon 56-56-9754DilqujlCincinnati Children's [facility] [address] [facility] [place] [address] NAME MEG [facility] [id number] 1965 DATE 08/29/2017 PROGRESS NOTE Ms. Georges [...] [facility]. MARK MILLER 08/29/2017 18:22 [id number] T 08/30/2017 08:46 KM/MODL Electronically Signed By Joanne Garvin Dpm on 05 Sep 2017 23:32:42 GMTNormal [facility] CenterCulture,Bacterialon 08-14-2017 Culture,BacterialTest Name: Culture,Bacterial Site: Left 1st MPJ ulcer/ celluli Culture Status: Final Culture Report: No Growth - Day 2 Gram Stain: Rare WBC's Few RBC's No Organisms Seen Micro Source: WoundNormalOhioHOur Lady of Mercy Hospital - AndersonComment on above:Performed By: #### CULT #### Unless otherwise noted, all testing performed by [address] [place] [address] CLIA: [id number] [employer] Coordinator: Skylar Niño M.D.Progress Noteon 63-84-1354Yxfdlrx[address] [place] [address] NAME MEG [facility] [id number] 1965 DATE 06/13/2017 PROGRESS NOTE SUBJECTIVE Ms. [...] understanding. JOANNE GARVIN DPM D 06/13/2017 10:44 [id number] T 06/13/2017 11:35 KM/MODL Electronically Signed By Joanne Garvin Dpm on 19 Jun 2017 14:55:04 [facility] HospitalConsultationon 36-28-0257Ftquqjyfzoms [facility] [address] [facility] [place] [address] NAME MEG [facility] [id number] 1965 DATE 04/11/2017 CONSULTATION [facility] MARTHA YAN DPM REFERRING PHYSICIAN: Neri Santa [...] any complications arise. MARK ELMORE 04/11/2017 16:16 [id number] T 04/11/2017 20:46 RCI/MODL cc: Neri Santa DO Electronically Signed By Martha Yan DPM on 16 Apr 2017 22:59:57 GMT [facility] HospitalProtein mass [facility] [address] [place] [address] NAME MEG GEORGES [id number] 1965 DATE 06/06/2017 PROGRESS NOTE PROGRESS NOTE [...] arise. MARTHA YAN DPM D 06/06/2017 22:10 [id number] T 06/07/2017 08:57 RCI/MODL Electronically Signed By Martha Yan DPM on 10 Jun 2017 00:05:11 GMT [facility] with Diffon 06-04-2017 Basophils #/vol (Bld)0.0 K/mcLNormal0-0.2[facility] CenterComment on above:Performed By: #### CBCDIF, CMET, EDCTNI #### Unless otherwise noted, all testing performed by [address] [address] CLIA: [id number] [employer]inator: Skylar Niño M.D.Basophils/100 WBC (Bld)0.5 %[facility]uffton HospitalComment on above:Performed By: #### CBCDIF, CMET, EDCTNI #### Unless otherwise noted, [place] [address] CLIA: [id number] [employer]: Skylar Niño M.D.Eosinophils #/vol (Bld)0.2 K/mcLNormal0-0.5 [facility] on above:Performed By: #### CBCDIF, CMET, EDCTNI #### Unless otherwise noted, [place] [address] CLIA: [id number] [employer]: Skylar Niño M.D.Eosinophils/100 WBC (Bld)2.5 %Normal [facility] on above:Performed By: #### CBCDIF, CMET, EDCTNI #### Unless otherwise noted, [place] [address] CLIA: [id number] [employer]inator: Skylar Niño M.D.Erythrocyte distribution width Ratio (RBC) 13.3 %Bmskjn66-53.4[facility] on above: Performed By: #### CBCDIF, CMET, EDCTNI #### Unless otherwise noted, [place] [address] CLIA: [id number] [employer]inator: Skylar Niño M.D.Hematocrit Volume Fraction (Bld)39.7 % Oxijax28.4-44.8[facility] on above: Performed By: #### CBCDIF, CMET, EDCTNI #### Unless otherwise noted, [place] [address] CLIA: [id number] [employer]: Skylar Niño M.D.Hemoglobin mass conc (Bld)13.3 g/dLNormal 11.6-15.4[facility] Medical CenterCommclaren greater [facility]ans[facility] hospital on above:Performed By: #### CBCDIF, CMET, EDCTNI #### Unless otherwise noted, [place] [address] CLIA: [id number] [employer]: Skylar Niño M.D.Lymphocytes #/vol (Bld)4.0 K/mcLHigh1.0-3.7 [facility] CenterCommclaren greater lansing hospital on above:Performed By: #### CBCDIF, CMET, EDCTNI #### Unless otherwise noted, [place] [address] CLIA: [id number] [employer]inator: Skylar Niño M.D.Lymphocytes/100 WBC (Bld)42.6 %Normal [facility] CenterCommclaren greater lans[facility] hospital on above:Performed By: #### CBCDIF, CMET, EDCTNI #### Unless otherwise noted, [place] [address] CLIA: [id number] [employer]: Skylar Niño M.D.MCH Entitic mass (RBC)30.1 pgNormal 27.9-33.9OhCleveland Clinic Avon HospitalCommclaren greater lans[facility] hospital on above:Performed By: #### CBCDIF, CMET, EDCTNI #### Unless otherwise noted, [place] [address] CLIA: [id number] [employer]inator: Skylar Niño M.D.MCHC mass conc (RBC)33.6 g/dLNormal 33.1-35.1[facility] CenterComment on above:Performed By: #### CBCDIF, CMET, EDCTNI #### Unless otherwise noted, [place] [address] CLIA: [id number] [employer]inator: Skylar Niño M.D.MCV Entitic volume (RBC)89.7 fLNormal 82.6-98.9[facility] CenterComment on above:Performed By: #### CBCDIF, CMET, EDCTNI #### Unless otherwise noted, all testing performed by [address] CLIA: [id number] [employer]inator: Skylar Niño M.D.Monocytes #/vol (Bld)0.6 K/mcLNormal0.1-0.6 [facility] CenterCommclaren greater lans[facility] hospital on above:Performed By: #### CBCDIF, CMET, EDCTNI #### Unless otherwise noted, all testing performed by [address] CLIA: [id number] [employer]inator: Skylar Niño M.D.Monocytes/100 WBC (Bld)5.9 %Normal [facility] CenterCommclaren greater lansing hospital on above:Performed By: #### CBCDIF, CMET, EDCTNI #### Unless otherwise noted, [place] [address] CLIA: [id number] [employer]: Skylar Niño M.D.Neutrophils #/vol (Bld)4.6 K/mcLNormal 1.2-6.9[facility] Medical CenterCommclaren greater [facility]ans[facility] hospital on above:Performed By: #### CBCDIF, CMET, EDCTNI #### Unless otherwise noted, [place] [address] CLIA: [id number] [employer]inator: Skylar Niño M.D.Platelet mean volume Entitic volume (Bld) 6.9 fLLow7.0-10.6[facility] on above: Performed By: #### CBCDIF, CMET, EDCTNI #### Unless otherwise noted, [place] [address] CLIA: [id number] [employer]inator: Skylar Niño M.D.Platelets #/vol (Bld)377 K/fsYPhjtuf090-664 [facility] on above:Performed By: #### CBCDIF, CMET, EDCTNI #### Unless otherwise noted, [place] [address] CLIA: [id number] [employer]inator: Skylar Niño M.D.RBC #/vol (Bld)4.42 M/mcLNormal3.7-5.0 [facility] CenterCommclaren greater lans[facility] hospital on above:Performed By: #### CBCDIF, CMET, EDCTNI #### Unless otherwise noted, [place] [address] CLIA: [id number] [employer]inator: Skylar Niño M.D.Segmented Neut %48.5 %NormalMercy Health Clermont Hospital on above:Performed By: #### CBCDIF, CMET, EDCTNI #### Unless otherwise noted, [place] [address] CLIA: [id number] [employer]inator: Skylar Niño M.D.WBC #/vol (Bld)9.5 K/mcLNormal3.4-10.6 [facility] on above:Performed By: #### CBCDIF, CMET, EDCTNI #### Unless otherwise noted, [place] [address] CLIA: [id number] [employer]: Skylar Niño M.D.Comprehensive Metabolic Panelon 06-04-2017 Albumin mass conc3.8 g/dLNormal3.2-5.2[facility] Comment on above:Performed By: #### CBCDIF, CMET, EDCTNI #### Unless otherwise noted, [place] [address] CLIA: [id number] [employer]: Skylar Niño M.D.ALP enzyme act/yqf502 U/GKazstk97-736 [facility] CenterComment on above:Performed By: #### CBCDIF, CMET, EDCTNI #### Unless otherwise noted, all testing performed by [place] [address] CLIA: [id number] [employer]inator: Skylar Niño M.D.ALT enzyme act/vol43 U/MYbngjz29-17 [facility] Medical CenterComment on above:Result Comment: This test result might be falsely depressed or falsely elevated on samples drawn from patients taking Sulfasalazine and Sulfapyridine. Venipuncture should occur prior to taking either of these drugs.Performed By: #### CBCDIF, CMET, EDCTNI #### Unless otherwise noted, [place] [address] CLIA: [id number] [employer]inator: Skylar Niño M.D.AST enzyme act/vol20 U/LNormal0-45 [facility] CenterComment on above:Result Comment: This test result might be falsely depressed or falsely elevated on samples drawn from patients taking Sulfasalazine and Sulfapyridine. Venipuncture should occur prior to taking either of these drugs.Performed By: #### CBCDIF, CMET, EDCTNI #### Unless otherwise noted, [place] [address] CLIA: [id number] [employer]: Skylar Niño M.D.Bilirubin mass conc0.3 mg/dLNormal0.3-1.2 [facility] CenterComm[facility] on above:Performed By: #### CBCDIF, CMET, EDCTNI #### Unless otherwise noted, [place] [address] CLIA: [id number] [employer] Coordinator: Skylar Niño M.D.Calcium mass conc9.4 mg/dLNormal8.4-10.2 [facility] on above:Performed By: #### CBCDIF, CMET, EDCTNI #### Unless otherwise noted, [place] [address] CLIA: [id number] [employer]inator: Skylar Niño M.D.Chloride molar fsji889 mmol/MZenydm84-287 [facility] on above:Performed By: #### CBCDIF, CMET, EDCTNI #### Unless otherwise noted, all testing performed by [place] [id number] CLIA: [id number] [employer] Coordinator: Skylar Niño M.D.CO2 molar conc26 mmol/NXsebhx84-74 [facility] on above:Performed By: #### CBCDIF, CMET, EDCTNI #### Unless otherwise noted, all testing performed by [place] [id number] CLIA: [id number] [employer] Coordinator: Skylar Niño M.D.Creatinine mass conc1.10 mg/dLNormal 0.40-1.10[facility] CenterComment on above:Performed By: #### VALERIANODIF, MIGUEL ANGELT, EDCTNI #### Unless otherwise noted, [place] [address] CLIA: [id number] [employer] Coordinator: Skylar Niño M.D.GFR/1.73 sq M predicted among blacks MDRD vol rate/area (S/P/Bld)mL/min/{1.73_m2}NormalUniversity Hospitals TriPoint Medical CenterComment on above:Result Comment: GFR CalcPerformed By: #### RAHCEL JOSE, EDCTNI #### Unless otherwise noted, [place] [address] CLIA: [id number] [employer]inator: Skylar Niño M.D.GFR/1.73 sq M predicted among non-blacks MDRD vol rate/area (S/P/Bld)52 mL/min/{1.73_m2}Low>60[facility] on above:Result Comment: Non- GFR Calc eGFR is an estimated Glomerular Filtration Rate based on the value of the patient's serum creatinine. In outpatients, eGFR should be used as a helpful tool in screening for CKD. In inpatients or patients with acute renal failure, eGFR represents the GFR at the moment of the draw and should be used with caution.Performed By: #### CBCDIF, CMET, EDCTNI #### Unless otherwise noted, [place] [address] CLIA: [id number] [employer]inator: Skylar Niño M.D.Glucose mass ewya485 mg/pILngj91-59 [facility] on above:Result Comment: This test result might be falsely depressed or falsely elevated on samples drawn from patients taking Sulfasalazine and Sulfapyridine. Venipuncture should occur prior to taking either of these drugs.Performed By: #### CBCDIF, CMET, EDCTNI #### Unless otherwise noted, [place] [address] CLIA: [id number] [employer] Coordinator: Skylar Niño M.D.Potassium molar conc4.2 mmol/LNormal3.5-5.1 [facility] on above:Performed By: #### CBCDIF, CMET, EDCTNI #### Unless otherwise noted, all testing performed by [address] CLIA: [id number] [employer] Coordinator: Skylar Niño M.D.Protein mass conc7.8 g/dLNormal6.0-8.0 [facility] on above:Performed By: #### CBCDIF, CMET, EDCTNI #### Unless otherwise noted, all testing performed by [address] CLIA: [id number] [employer]inator: Skylar Niño M.D.Sodium molar dtik161 mmol/MUjpkwt437-785 [facility] on above:Performed By: #### CBCDIF, CMET, EDCTNI #### Unless otherwise noted, [place] [address] CLIA: [id number] [employer] Coordinator: Skylar Niño M.D.Urea nitrogen mass conc15 mg/dLNormal8-25 [facility] on above:Performed By: #### CBCDIF, CMET, EDCTNI #### Unless otherwise noted, [place] [address] CLIA: [id number] [employer]inator: Skylar Niño M.D.ED Cardiac Troponin-Ion 08-08-2547Fbsbqxae I.cardiac mass concng/mLNormal< 45[facility] Comment on above:Result Comment: Elevation of troponin indicates some degree of myocardial necrosis but unless there is a significant rise and/or fall (if elevated) identified, it unlikely that an acute event has taken place Samples from patients routinely receiving high dose biotin therapy (100-300 mg/day) may show falsely decreased results. Please correlate clinically.Performed By: #### CBCDIF, CMET, EDCTNI #### Unless otherwise noted, [place] [address] CLIA: [id number] [employer] Coordinator: Skylar Niño M.D.RIBS UNILATERALon [id number] UNILATERAL Final Report Accession No: [id number] Performed: Jun 04 2017 9:56PM Examination: [...] Physician: IVETT TANNER M.D. Trans: istumb : cc:NormalUniversity Hospitals TriPoint Medical CenterCulture,Bacterialon 04-22-2017 Culture,BacterialTest Name: Culture,Bacterial Site: LEFT ANKLE Culture Status: Final Culture Report: Growth Gram Stain: No WBC's No Squamous Epithelial Cells No Organisms Seen Micro Source: Wound ORGANISM ID: 1 - Rare STAPHYLOCOCCUS AUREUS ANTIBIOTIC INTERPRETATION BECKY STATUS Clindamycin S 0.25 F Doxycycline S <= 0.5 F Erythromycin S <= 0.25 F Oxacillin S 0.5 F Trimeth/Sulfa S <= 10 F Vancomycin S <= 0.5 FNormalUniversity Hospitals TriPoint Medical CenterComment on above:Performed By: #### CULT #### Unless otherwise noted, all testing performed by [facility] [address] [place] [address] CLIA: [id number] [employer] Coordinator: Skylar Niño M.D.Progress Noteon 92-00-1154Pffavdp mass conc [facility] [address] [place] [id number] NAME MEG [facility] [id number] 1965 DATE PROGRESS NOTE Meg seen today [...] in a week. MARK MARQUEZ 04/22/2017 12:51 [id number] T 04/22/2017 16:19 BJDaya/BETSY Electronically Signed By Pili Gilliam DPM on 23 Apr 2017 17:35:14 TNoal [facility] CenterCulture,Bacterialon 04-18-2017 Culture,BacterialTest Name: Culture,Bacterial Site: left foot Culture Status: Final Gram Stain: Rare WBC's Rare Squamous Epithelial Cells Rare Gram Positive Cocci Micro Source: Wound drainage ORGANISM ID: 1 - Moderate STAPHYLOCOCCUS AUREUS ANTIBIOTIC INTERPRETATION BECKY STATUS Clindamycin S 0.25 F Doxycycline S <= 0.5 F Erythromycin S <= 0.25 F Oxacillin S 0.5 F Trimeth/Sulfa S <= 10 F Vancomycin S 1 FNormalOhCleveland Clinic Avon HospitalComment on above: Performed By: #### CULT #### Unless otherwise noted, all testing performed by [facility] [address]. [place], [place] [address] CLIA: [id number] [employer] Coordinator: Skylar Niño M.D. Vital Signs Date TimeVital SignValuePerforming XvucoavztYvjfyfri15-45-7465 20:30-0400 Diastolic blood nrvzfwbu86 mm[Hg]Christopher Hauger DO Work Phone: 1([phone])[address]06-24-2022 20:30-0400Heart rate88 /minChristopher Hauger DO Work Phone: [phone])[address] [place], [place] [address]6-24-2022 20:30-0400 Respiratory rate18 /minChristopher Hauger DO Work Phone: 1(785)[address]06-24-2022 20:30-8708YaP6% (BldA) [Mass fraction]100 %Christopher Hauger DO Work Phone: 1(681)[address]06-24-2022 20:30-0400Systolic blood dsxikttk201 mm[Hg]Christopher Hauger DO Work Phone: [phone])[address] [place], [place] [address]6-24-2022 18:00-0400Body behpiqawedo754 [degF]Christopher Hauger DO Work Phone: [phone])[address] [place], [place] [address]6-24-2022 13:33-0400Body ieztyh893.1 cmChristopher Hauger DO Work Phone: [phone]06-22-2022 06:00-0400Body mass index (BMI) [Ratio]21.72 kg/m8Ahxipgwrupw Hauger DO Work Phone: 1([phone])[address]06-22-2022 06:00-0400Body cafbyo13.2 kgChristopher Hauger DO Work Phone: [phone] [place], [place] [address]ITALThreadbox TJHFMV04-87-7106 14:00-0400Diastolic blood hswacjvm51 mm[Hg]Anthony Villarreal MD Work Phone: [facility]05-28-2022 14:00-0400Heart xogt905 /Hernandez Villarreal MD Work Phone: [facility]05-28-2022 14:00-2457RcN0% (BldA) [Mass fraction]94 %Anthony Villarreal MD Work Phone: [facility]05-28-2022 14:00-0400Systolic blood uwtxgtgw004 mm[Hg]Anthony Villarreal MD Work Phone: [facility]05-28-2022 11:15-0400 Respiratory rate16 /Hernandez Villarreal MD Work Phone: [facility]05-27-2022 20:37-0400Body .1 Denys Villarreal MD Work Phone: [facility]05-27-2022 20:37-0400Body mass index (BMI) [Ratio]23.3 kg/e5FpqkovnruldAnthony Villarreal MD Work Phone: [facility]05-27-2022 20:37-0400Body nvurny53.5 kgAnthony Villarreal MD Work Phone: [facility]05-27-2022 20:20-0400Body vfgegsuykbs85.5 [degF]Anthony Villarreal MD Work Phone: [facility]05-24-2022 10:55-0400Body cekotoadpbu74.81 [degF]Wil Martinez MD Work Phone: [facility]05-24-2022 10:55-0400Diastolic blood ogwxkymu13 mm[Hg]Wil Martinez MD Work Phone: [facility]05-24-2022 10:55-0400Heart rate88 /Shellie Martinez MD Work Phone: [facility]05-24-2022 10:55-0400 Respiratory rate14 /minAlelucero Martinez MD Work Phone: [facility]05-24-2022 10:55-2537UnP7% (BldA) [Mass fraction]98 %Wil Martinez MD Work Phone: [facility]05-24-2022 10:55-0400Systolic blood pgvsyhcq972 mm[Hg]Wil Martinez MD Work Phone: [facility]05-24-2022 06:00-0400Body mass index (BMI) [Ratio]26.91 kg/c9WwbjvipmpWil Martinez MD Work Phone: [facility]05-24-2022 06:00-0400Body .35 kgAlelucero Martinez MD Work Phone: [facility]05-19-2022 15:43-0400Body .1 cmAlexmelida Martinez MD Work Phone: [facility]05-12-2022 09:45-0400Diastolic blood mgeamxon10 mm[Hg]Chris Boothe MD Work Phone: 1(445)386-[address] [place], [place] 5440605-12-2022 09:45-0400Heart vgin269 /min Chris Boothe MD Work Phone: 1(405)211-[address] [place], [place] 5440605-12-2022 09:45-0400Respiratory rate25 /minChris Boothe MD Work Phone: 1(246)337-[address] [place], [place] 5440605-12-2022 09:45-3653XtF0% (BldA) [Mass fraction]98 %Chris Boothe MD Work Phone: 1(487)156-[address] [place], [place] 5440605-12-2022 09:45-0400Systolic blood kzyoqmxw954 mm[Hg]Chris Boothe MD Work Phone: [phone] [place], [place] 5440605-12-2022 07:41-0400Body mass index (BMI) [Ratio]24.13 kg/m2Chris Boothe MD Work Phone: [facility]9005 07:41-0400Body iishja90.77 kg Chris Boothe MD Work Phone: [facility] HospitalRdexol17-89-4434 03:49-0400Body nvtjdozjffm30.9 [degF]Chris Boothe MD Work Phone: [facility] HospitalCvntva90-65-9382 15:31-0400Diastolic blood zrvxqkis61 mm[Hg][address]03-25-2022 15:31-0400 Heart rate84 /[address]03-25-2022 15:31-0400 Respiratory rate16 /[address]03-25-2022 15:31-0400Systolic blood irncfpss810 mm[Hg][address]03-25-2022 13:31-0400Body .2 [degF][address]03-15-2022 14:36-0400Body mass index (BMI) [Ratio]25.81 kg/m2Tia Baugh PA-C Work Phone: 1(905) [phone]uqxll91-84-7141 14:36-0400Body ihrdztjniog36.29 [degF]Tia Baugh PA-C Work Phone: 1(240) [phone]umeYjpbdz14-87-6042 14:36-0400Body qcokuv12.35 kgTia Baugh PA-C Work Phone: 1(362) [phone]zzxXjosuk99-91-4156 14:36-0400Diastolic blood mm[Hg]Tia Baugh PA-C Work Phone: 1(843) [phone]90GwavImvkuo10-41-2549 14:36-0400Heart rate77 /minDnirmal Baugh PA-C Work Phone: 1(854) [phone]-217912FeciWcpflk11-73-2711 14:36-0400Respiratory rate16 /min Tia Baugh PA-C Work Phone: 1(333) [phone]dXdvkjm19-55-5159 14:36-6869FuV1% (BldA) [Mass fraction]97 %Tia Baugh PA-C Work Phone: 1(602) [phone]35FlthTrfjxj60-49-2054 14:36-0400Systolic blood pressure 137 mm[Hg]Tia Valentin PA-C Work Phone: 1(431) [phone]vcrYejdts22-26-1662 11:06-0500Diastolic blood zakmulwh41 mm[Hg]Jef Mariela Jr., DPM Work Phone: 1(367)[phone]mnqFtudhh75-95-1318 11:06-0500Heart rate99 /min Jef Mariela Jr., DPM Work Phone: 1(613)[phone]hcwSityvd65-07-2740 11:06-0500Systolic blood pressure 123 mm[Hg]Jef Mariela Jr., DPM Work Phone: 1(224)[phone]viVcjufy87-76-5124 10:49-0500Body ahddhvsjbhd32.2 [degF]Jef Mariela Jr., DPM Work Phone: 1(787) [phone]fgeyl89-62-8291 11:06-0500Body qiuttdsetxw16.9 [degF]Jef Mariela Jr., DPM Work Phone: 1(649)[phone]mkkBuatkq85-46-1537 11:06-0500Diastolic blood vebqxptk96 mm[Hg]Jef Mariela Jr., DPM Work Phone: 1(011)[phone]owtGhlycj12-22-8639 11:06-0500Heart rate89 /min Jef Mariela Jr., DPM Work Phone: 1(356)[phone]pnuFjtyez16-04-3897 11:06-0500Systolic blood pressure 146 mm[Hg]Jef Mariela Jr., DPM Work Phone: 1(276)[phone]csiUgmkey56-55-2074 09:55-0500Diastolic blood hopulrhf71 mm[Hg]Jef Mariela Jr., DPM Work Phone: 1(142)[phone]iezTjxwyj91-48-5156 09:55-0500Heart rate89 /min Jef Mariela Jr., DPM Work Phone: 1(852)[phone]nkxWckplq48-69-3564 09:55-0500Systolic blood pressure 154 mm[Hg]Jef Amriela Jr., DPM Work Phone: [phone]93018IiwnXqpixm16-90-8676 09:52-0500Body gxllogepbgb18.59 [degF]Jef Mariela Jr., DPM Work Phone: 1(307)[phone]vgsHfhhtj17-44-8162 11:17-0500Body uvfeahdljsn77.7 [degF]Jef Mariela Jr., DPM Work Phone: 1(725)[phone]ufjFwuicv26-47-9432 11:17-0500Diastolic blood zokxewgx75 mm[Hg]Jef Mariela Jr., DPM Work Phone: 1(775)[phone]nomZbtycg46-05-0009 11:17-0500Heart rate96 /min Jef Mariela Jr., DPM Work Phone: 1(079)[phone]zllHaqbtb09-56-3822 11:17-0500Systolic blood pressure 157 mm[Hg]Jef Mariela Jr., DPM Work Phone: 1(883)[phone]vylVswzjk80-50-8180 10:31-0500Body ukfmiimccsx14.4 [degF]Jef Mariela Jr., DPM Work Phone: 1(009)[phone]fnbVyuywy39-26-6705 10:31-0500Diastolic blood vvpfacts38 mm[Hg]Jef Mariela Jr., DPM Work Phone: 1(173)[phone]mocYuussp05-81-4120 10:31-0500Heart rate98 /min Jef Mariela Jr., DPM Work Phone: 1(463)[phone]rjqCfcyyf07-50-6542 10:31-0500Systolic blood pressure 156 mm[Hg]Jef Mariela Jr., DPM Work Phone: 1(848)[phone]bzlMhejht74-92-3818 15:58-0500Body fzygbdtsmyd11.7 [degF]Jef Mariela Jr., DPM Work Phone: 1(416)[phone]plkSvsbmm91-97-0748 15:58-0500Diastolic blood vfwlwcxy02 mm[Hg]Jef Mariela Jr., DPM Work Phone: 1(016)[phone]oyoWzhozt09-59-5224 15:58-0500Heart jaut119 /min Jef Mariela Jr., DPM Work Phone: 1(366)[phone]dmzJlyiuj45-24-9959 15:58-0500Systolic blood pressure 163 mm[Hg]Jef Mariela Jr., DPM Work Phone: 1(675)[phone]focUargts27-76-2398 10:58-0500Body ajmmbtkfveq68.7 [degF]Jef Mariela Jr., DPM Work Phone: 1(549)[phone]wukPlmeqm31-45-7510 10:58-0500Diastolic blood avjqnlpp76 mm[Hg]Jef Mariela Jr., DPM Work Phone: 1(282)280-211-2492FqqkHwrhwx66-508179BrexIcmabl13-98-5499 10:58-0500Heart pakk288 /min Jef Mariela Jr., DPM Work Phone: 1(982)[phone]yeqAnmiof08-03-5534 10:58-0500Systolic blood pressure 143 mm[Hg]Jef Mariela Jr., DPM Work Phone: 1(222)[phone]etiKzwfaq13-48-7198 08:43-0500Body .2 [degF]Jef Mariela Jr., DPM Work Phone: 1(598)[phone]uxpWpgsiv09-54-6760 08:43-0500Diastolic blood jvhmzgku40 mm[Hg]Jef Mariela Jr., DPM Work Phone: 1(002)[phone]tarZpwuxv52-60-7425 08:43-0500Heart rate99 /min Jef Mariela Jr., DPM Work Phone: 1(657)[phone]kazQadgtu00-38-9677 08:43-0500Systolic blood pressure 156 mm[Hg]Jef Mariela Jr., DPM Work Phone: 1(575)[phone]hpdMbjrbs85-67-4119 09:09-0500Body gasvmeqfwmu29.7 [degF]Jef Mariela Jr., DPM Work Phone: 1(967)[phone]mxyEqftaa51-08-7549 09:09-0500Diastolic blood sprimklw52 mm[Hg]Jef Mariela Jr., DPM Work Phone: [phone](388)04008-7677FclaVbuewe27-916693WuylVcetyx01-27-4243 09:09-0500Heart rate83 /min Jef Mariela Jr., DPM Work Phone: 1(262)03691-9113UlcwFelaeq46-929169QzxiCtsddh11-72-5809 09:09-0500Systolic blood pressure 149 mm[Hg]Jef Mariela Jr., DPM Work Phone: 1(034)000-600-7746PskvIhlzsu85-338877BrhhCyzgai00-29-3171 11:17-0400Body dnuftg244.1 cm Jef Velasquezn Jr., DPM Work Phone: 1(573)[phone]xvqIgyrxd13-46-9659 11:17-0400Body mass index (BMI) [Ratio]25.46 kg/b2AjklzzdgJef Velasquezn Jr., DPM Work Phone: 1(657)[phone]xmaQnwhlr79-75-2365 11:17-0400Body zwdxkiumxpk80.2 [degF]Jef Velasquezn Jr., DPM Work Phone: 1(389)[phone]tigJfjjva18-09-9663 11:17-0400Body ievhgy00.4 kg Jef Velasquezn Jr., DPM Work Phone: 1(690)[phone]cnkNufxwu60-46-8068 11:17-0400Diastolic blood mm[Hg]Jef Mariela Jr., DPM Work Phone: 1(135)[phone]jjvZnzsai23-17-6085 11:17-0400Heart fptl481 /min Jef Mariela Jr., DPM Work Phone: 1([phone]2228RpeeBdmliv57-50-7873 11:17-0400Systolic blood pressure 144 mm[Hg]Jef Mariela Jr., DPM Work Phone: MjvmEbwpuq97-346859OugwFzmfih55-94-2717 08:11-0400Body sofkty017.7 cm Jef Mariela Jr., DPM Work Phone: SihwEajxxq23-441180JvpdWslxsn95-50-0425 08:11-0400Body mass index (BMI) [Ratio]29.39 kg/l2Rykurrmnkavon Velasquezn Jr., DPM Work Phone: FiuaOykhxv01-671415TeudXqxksz88-01-8314 08:11-0400Body mbxbrtlskqa93.2 [degF]Jef Velasquezn Jr., DPM Work Phone: TdtqQjonjp48-541098CqiqGrxqzw97-79-0460 08:11-0400Body .4 kg Jef Mariela Jr., DPM Work Phone: PgsaCcdvmd68-899427CnvjWohbzt42-18-8936 08:11-0400Diastolic blood xkutdwwx66 mm[Hg]Jef Mariela Jr., DPM Work Phone: 1(157)[phone]wxtIldvud80-32-9056 08:11-0400Heart rate82 /min Jef Mariela Jr., DPM Work Phone: 1(117)14764-7943TtioLbjnjo86-483298RusoEerjbp73-24-4365 08:11-0400Systolic blood pressure 133 mm[Hg]Jef Mariela Jr., DPM Work Phone: 1(765)10186-6960SudzOzndms56-107200BngrXmpmzk99-04-8476 11:22-0400Diastolic blood iiauvzsu13 mm[Hg][address]08-17-2021 11:22-0400 Heart rate84 /[address]08-17-2021 11:22-0400 Respiratory rate16 /[address]08-17-2021 11:22-0400Systolic blood ovxtlfxl434 mm[Hg][address]08-17-2021 09:15-0400Body cogwffsftad79.9 [degF][address]08-10-2021 11:50-0400Body moyobr595.1 cmFranck Mtz MD Work Phone: 1(813)[address] [place], [place] 2542008-10-2021 11:50-0400Body mass index (BMI) [Ratio]25.96 kg/m9RpngwxFranck Mtz MD Work Phone: 1(108)[address] [place], [place] 2542008-10-2021 11:50-0400Body gletaa22.76 kgFranck Mtz MD Work Phone: 1(381)[address] [place], [place] 2542008-10-2021 11:50-0400 Diastolic blood fpnnvkos69 mm[Hg]Franck Mtz MD Work Phone: 1(157)[address] [place], [place] 2542008-10-2021 11:50-0400Heart dqvw135 /Sarabjit Mtz MD Work Phone: 1(964)[address] [place], [place] 2542008-10-2021 11:50-0400Systolic blood nqyebdic925 mm[Hg]Franck Mtz MD Work Phone: 1(050)[address] [place], [place] [address]2008-05-2021 13:31-0400 Diastolic blood fmwahiiy24 mm[Hg][address] 09-21-2020 13:31-0400Heart rate89 /[address] 09-21-2020 13:31-0400Respiratory rate16 /[address]08-05-2021 13:31-0400Systolic blood swqxnzla209 mm[Hg][address]08-05-2021 11:36-0400Body dprnzndxiuj00.9 [degF][address]07-29-2021 14:39-0400Body phmymvbdpdf42.39 [degF]Jef Sierra Jr., DPM Work Phone: 1(661) [phone]65102BuwbDnrwkx42-15-3329 14:39-0400Diastolic blood mm[Hg]Jef Sierra Jr., DPM Work Phone: 1(360) [phone]hdwnq89-65-2962 14:39-0400Heart rate98 /min Jef Sierra Jr., DPM Work Phone: 1(409) [phone]cxvhj57-37-5789 14:39-0400Systolic blood pressure 145 mm[Hg]Jef Sierra Jr., DPM Work Phone: 1(179) [phone]xptzf26-30-7066 09:34-0400Body zgwaje572.1 Mariah Kaur MD Work Phone: 1(417)405-[address] [place], [place] 0690607-28-2021 09:34-0400Body mass index (BMI) [Ratio]25.66 kg/m2Luis Miguel Kaur MD [facility] 09:34-0400Body weight 69.94 kgLuis Miguel Kaur MD Work Phone: 4(172)942-[address] [place], [place] [address]7-28-2021 09:34-0400Diastolic blood biuqzest00 mm[Hg]Luis Miguel Kaur MD [facility] 09:34-0400Heart rate89 /minLuis Miguel Kaur MD [facility] Phone: [facility]28[facility]2021 09:34-0400Systolic blood advlyvlg713 mm[Hg]Luis Miguel Kaur MD Work Phone: 0(436)962-[address] [place], [place] [address]3-02-2021 08:16-0500Body height 153.7 cmJef Howecheryl Ahmadi, DPM Work Phone: 1(643) [phone]owzfo22-10-0414 08:16-0500Body mass index (BMI) [Ratio]29.39 kg/j0PgzybwerJef Sierra ., DPM Work Phone: 1(336)[phone]iqupr18-87-1548 08:16-0500Body qgueyv29.4 kg Jef Velasquezute Ahmadi, DPM Work Phone: 1(241)[phone]uacod91-65-1231 08:16-0500Diastolic blood mgwurswl65 mm[Hg]Jef Velasquezute Guzman., DPM Work Phone: 1(992) [phone]lrtab67-93-9012 08:16-0500Systolic blood pressure 136 mm[Hg]Jef Velasquezute Guzman., DPM Work Phone: 1(612)[phone]zpmoj18-54-1293 09:31-0400BMI (Body Mass Index) 25.29 kg/o8UuqdgqcK[facility] MiamisburgUhgwhtOczsAyhglc18-24-1398 09:31-0400Body Aixeumgvtwv76.4 [degF][facility]burgPlpukzHkfoSaqiqo98-22-1182 09:31-0400BP Mtwzgzlmo65 mm[Hg][facility]burgDzelqbNakuMsxbgu39-98-6554 09:31-0400BP Chkxysen360 mm[Hg][facility]04-12-2019 09:31-2946Jhrcyd420.1 cmKettering Health MiamisburgYkxqymDkduMxgyto15-88-0843 09:31-0400Pulse (Heart Rate)102 /[facility]04-12-2019 09:31-0400Pulse Abhpwnyh292 %[facility]amisburgQhcpbcYijiHhmuee41-55-6669 09:31-0400 Respiratory Rate16 /[facility]04-12-2019 09:31-6305Piulqa04.95 kgKettering Health MiamisburgVknpbcGieiNwuofk65-11-9368 14:05-0500BMI (Body Mass Index)25.07 kg/m2 [facility] Work Phone: 1(925) 651-391211-15-2018 14:05-0500BP Kpzgsecga50 mm[Hg][facility] Work Phone: 1(445) 539-809111-15-2018 14:05-0500BP Dkbynwbt710 mm[Hg][facility] Work Phone: 1(695) 140-559411-15-2018 14:05-4972Nbqyaa947.4 cmT[facility] Work Phone: 1(283) 569-680211-15-2018 14:05-0500Pulse (Heart Rate)108 /[facility]To[facility] Work Phone: 1(843) 768-724311-15-2018 14:05-2399Ocqzcp29.4 kgT[facility] Work Phone: 1(187) 639-116002-19-2018 12:24-0500BP Gmfmnvavy53 mm[Hg][facility] CampusVigkVvuawq87-58-3783 12:24-0500BP Mnpolpdg570 mm[Hg][facility] 04-07-2017 12:24-0500Pulse (Heart Rate)98 /minW. VgzerlGoloMljxst60-93-1454 12:22-0500BMI (Body Mass Index)26.49 kg/m2W. HjtomxKuvfVpffsa62-11-8560 12:22-8299Foemag662.1 cmW. WvquokItezWkdmwc49-03-7776 12:22-0500Respiratory Rate 16 /minW. TziwegTovdZicapl92-79-5785 12:22-6071Lgmyir69.21 kgW. [facility] Encounters Encounter DateEncounter TypeCare ProviderFacilityStart: 12-07-2024 End: 46-70-7244Auwiffsng encounterKiblair Chávez NP Work Phone: noms [facility] MedinceStart: 11-30-2024 End: 67-09-6297Rhicwjxch encounterJay Chávez [employer]OV[employer] TRIMMER Work Phone: NOMS [facility] MedinceStart: 11-23-2024 End: 84-71-9432Fduotlxon encounterMahin Bernal MD Work Phone: NOSF [facility] MedinceStart: 11-22-2024 End: 97-30-2438Mqoqjzpya encounterJay Chávez SE[employer]OV[employer] TRIMMER Work Phone: NOMS [facility] MedinceStart: 09-27-2024 End: 05-25-5984Phzmos flowsheetJonathan D Zahler DO Work Phone: NOLM [facility] EyeStart: 09-27-2024 End: 42-08-8412Pkwvcw flowsheetJonathan D Zahler DO Work Phone: NOUL [facility] EyeStart: 09-27-2024 End: 68-35-0892ecqdxcsdrkBRBNLXIT D ZAHLERNot AvailableStart: 08-27-2024 End: 76-93-6390Cafsvp [facility] PA Work Phone: NOMS SWS DERMStart: 08-27-2024 End: 24-45-2989Fomexd [facility] PA Work Phone: NOYQ SWS DERMStart: 08-27-2024 End: 28-94-9388Rnfvin [facility]Indian [facility] Work Phone: NOMS External Department UnsolicitedStart: 08-27-2024 End: 72-05-6236Oohbmx outpatient visit 25 [facility] PA Work Phone: NOMS SWS DERMComment on above:Other atopic dermatitis (Primary Dx); Traumatic ulcer of left foot, unspecified ulcer stage (HCC); ImpetigoStart: 08-27-2024 End: 64-88-7338dnqqpfhxinFTWEK NORTHEIMNot AvailableStart: 08-10-2024 End: 00-17-0672Qblsqfcvv Result EncounterGeneric External Data ProviderNOMS External Department UnsolicitedStart: 08-10-2024 End: 34-11-7254Zmmoeobba Result EncounterGeneric External Data ProviderNOMS External Department UnsolicitedStart: 06-28-2024 End: 14-23-8432nsomsnmncqEQTFKQSQ D ZAHLERNot AvailableStart: 04-16-2024 End: 58-15-6039Okyfmtcaf department patient visitJohn ParenteFacility:FTMCStart: 32-99-8129gbfattorpdJbce L SchwabFacility:FT BellevueStart: 11-21-2023 End: 35-69-2938gqqpcjkolxSwqw L SchwabFacility:FT BellevueStart: 10-24-2023 End: 21-67-7483pbdkeodokaUidg L SchwabFacility:FT BellevueStart: 10-10-2023 ambulatoryJodi SchwabFacility:FT BellevueStart: 05-27-2023 End: 57-98-4217steyqnpfqhSWMK ALAHMADFacility:FTMCStart: 49-89-2943Kvabfysza Result EncounterDaalex Shen MD Work Phone: noms External Department UnsolicitedStart: 03-29-2023 Clinisync Result EncounterDaalex Shen MD Work Phone: noms External Department UnsolicitedStart: 11-22-2022 End: 19-38-0872tfpqzxqnqiEHOERNCity Hospitaltart: 04-02-2022 End: 60-61-6988epoejuzytnITD [facility]tart: 04-02-2022 End: 08-32-5948Geturzhnfa hospital visit by physicianStv [facility] RadiologyComment on above:S/P cervical spinal fusionStart: 12-04-2021 End: 83-63-6925Lnzjnitays hospital visit by physicianSttanya C-Arm [address] [place] [address] RadiologyComment on above:Atlantoaxial instability; S/P cervical spinal fusionStart: 11-22-2021 End: 31-57-4515tmezjbibiuPthnwt BerryFacility:[facility] Start: 11-22-2021 End: 96-26-9038leletuwlhdDQ Daniel Berry Work Phone: [facility] Work Phone: Start: 11-22-2021 End: 60-62-6354Jtkseuid ReferredKARLOS Shen Work Phone: [facility] Main CampusStart: 08-20-2021 End: 69-25-4805Ojkjvwwwbd and management of inpatientDALUN TANGFacility:[facility] Start: 07-14-2021 End: 36-73-2140Eudtwiunwo and management of inpatientChanandtopher Rizo Jazmine PALACIOS Work Phone: stvz CAR 3Start: 07-13-2021 End: 46-39-8613Wpnhwvgwd department patient visitAnthony Villarreal MD Work Phone: [facility] EDComment on above:COVID-19 (Primary Dx); Pneumonia of left lower lobe due to infectious organism; Hypokalemia; Hypomagnesemia; 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Start: 06-28-2021 End: 68-31-4437Dfibxycsbo and management of inpatientWil Martinez MD Work Phone: stvz 1C STEP DOWNStart: 06-28-2021 End: 60-15-7652Tilmyuxcc department patient visitChris Boothe MD Work Phone: [facility] EDComment on above:Non- intractable vomiting with nausea, unspecified vomiting type (Primary Dx); Altered mental status, unspecified altered mental status type; Leukocytosis, unspecified typeStart: 05-18-2021 End: 33-07-6806Yhcdzyrjnc and management of inpatientAMBMarietta Osteopathic Clinictart: 05-18-2021 End: 47-45-9735Fmkilqute department patient visitBARNESVILLE HOSPITALLionelUpper Valley Medical Center Start: 05-13-7565fztwepftgcOCLSUCI P HOUSEFacility:[facility]ALLAStart: 58-86-1053bwvniqhuljBHQBCT MATURUFacility:[facility]AStart: 05-11-2021 End: 54-46-3240dykhcncgshFpdtoy Mmp-Up1Rhbemhjo [facility] Start: 05-11-2021 End: 95-14-0743Pifoyhu encounter procedureSjianmarce Weldon DO Work Phone: Infusion [facility] Outpatient CareComment on above: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) Start: 57-79-2469pjcaazwqvqJQNQGAL P HOUSEFacility:[facility]AStart: 05-01-2021 End: 05-40-5615xvrepigafhKBXQNVF [facility] Urgent CareStart: 05-01-2021 End: 71-31-3080Aqjnpj outpatient visit 15 minutesTia Baugh PA-C Work Phone: [facility] BucyrusComment on above:Partial thickness burn of single finger of right hand excluding thumb, initial encounter (Primary Dx); Wound infection; Laceration of right thumb, initial encounterStart: 28-31-5852supiyflxbnJUMXTPK P HOUSEFacility:[facility]AStart: 04-17-2021 End: 53-60-5045kprjwyodymWYCVIVZL DILLON JR.[facility] AmbulatoryStart: 04-17-2021 End: 38-27-6457Wcsuuv outpatient visit 15 minutesJef Sierra DPM Work Phone: [facility] PodiatryComment on above: 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) (Primary Dx)Start: 93-46-2529kvpqdcwdwsRXRUIDM P HOUSEFacility:[facility]AStart: 13-57-6780sdwsezwzneFXHLSVI P HOUSEFacility:[facility]AStart: 04-06-2021 End: 64-49-9731Abqptbmvsk and management of inpatientPCP PCP UNKNOWN~[phone] PHYSICIAN PHYSICIANMount Ann Patino [facility] Centertart: 04-06-2021 End: 58-44-0848Xdxewjxhxw and management of inpatientSEAN SUSANFIRSTHEALTH MONTGOMERY MEMORIAL HOSPITALSelene MarrHill Hospital of [facility] KaseyUniversity Hospitals Ahuja Medical Centertart: 01-30-3813evvixdqydeCYVLTDN P HOUSEFacility:[facility]AStart: 03-27-2021 End: 18-61-5772kdfrpykjraWRTMBXRC DILLON JR.[facility] AmbulatoryStart: 03-27-2021 End: 51-88-5007Hqrzmf outpatient visit 15 Magaly Sierra DPM Work Phone: [facility] PodiatryComment on above: 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) (Primary Dx)Start: 57-05-1422xijigpfqvrPFNGLK BERGMANFacility:[facility]AStart: 03-06-2021 End: 92-88-5340ekacjxqgboBAWFLQJU DILLON JR.[facility] AmbulatoryStart: 50-90-2326srofcwuliuKKATMIC P HOUSEFacility:[facility]AStart: 02-21-2021 ambulatoryCHARLES P HOUSEFacility:[facility]AStart: 02-20-2021 End: 99-47-8601fqazhanlxyVDZHJGKM DILLON JR.[facility] AmbulatoryStart: 02-20-2021 End: 42-87-7373Ftjwrtw encounter procedureJef Sierra DPM Work Phone: [facility] PodiatryComment on above: 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)Start: 56-08-3851idwifkdvphBAGCLUR P HOUSEFacility:[facility]AStart: 02-14-2021 ambulatoryCHARLES P HOUSEFacility:[facility]AStart: 39-78-8945bnnrybpmoi NERI P HOUSEFacility:[facility]AStart: 37-10-2294upolxioktrWSHXTDT P HOUSEFacility:[facility]AStart: 2021 End: 09-01-1452aixbvpbvasHWMDBNNK DILLON JR.[facility] AmbulatoryStart: 2021 End: 89-78-1399Edlchma encounter procedureJef Sierra DPM Work Phone: [facility] PodiatryComment on above: Ulcer of left foot with fat layer exposed (HCC) (Primary Dx)Start: 01-30-2021 End: 63-49-6426vxzprwuzzgSHNEDIVS [facility]ON JR.[facility] HospitalStart: 01-30-2021 End: 68-77-9353Hqprpkz encounter procedureJef Sierra DPM Work Phone: [facility] PodiatryComment on above: Ulcer of left foot with fat layer exposed (HCC) (Primary Dx)Start: 01-24-2021 End: 20-27-3190vslklbodvwINHNJUHX DILLON JR.[facility] AmbulatoryStart: 01-24-2021 End: 80-52-2031Obyyxht encounter procedureJekavon Velasquezn DPM Work Phone: [facility] PodiatryComment on above: Ulcer of left foot with fat layer exposed (HCC) (Primary Dx)Start: 01-23-2021 ambulatoryCHAALVINO P HOUSEFacility:[facility]AStart: 01-16-2021 End: 12-89-3528qffdtlmmbuDYSDLBVT [facility]ILLON JR.[facility] HospitalStart: 01-16-2021 End: 08-30-0937Whxttrx encounter procedureJekavon Velasquezn DPM Work Phone: [facility] PodiatryComment on above: 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) (Primary Dx)Start: 07-11-4173lppomvnqnjJGVSMNH P HOUSEFacility:[facility]AStart: 01-09-2021 End: 06-28-4196suzdejziwvDFYRJLWR DILLON JR.[facility] AmbulatoryStart: 01-09-2021 End: 12-80-2640Rdhiapj encounter procedureJekavon Velasquezn DPM Work Phone: [facility] PodiatryComment on above: Ulcer of left foot with fat layer exposed (HCC) (Primary Dx)Start: 01-02-2021 End: 71-47-1301knqpkoxdrqDQPBOXHO DILLON JR.[facility] AmbulatoryStart: 01-02-2021 End: 78-24-8078Mvjfhlp encounter procedureJef Sierra DPM Work Phone: [facility] PodiatryComment on above: Non-pressure chronic ulcer of other part of left foot with fat layer exposed (HCC) (Primary Dx); Ulcer of left foot with fat layer exposed (HCC)Start: 93-49-3622inmgwntfys NERI Parker CHINAFacility:[facility]AStart: 66-26-3747zgqsblfdfzHJOWBVO P CHINAFacility:[facility]AStart: 99-97-4163kwqkmglymtHCKNEMSAY Cynthia KIERRA Facility:[facility]AStart: 20-27-4991kzzskauysvJCJL SELF Facility:[facility]AStart: 12-19-2020 End: 21-71-7951bplgmribbmDIJXVIBR DILLON JR.[facility] AmbulatoryStart: 12-19-2020 End: 23-24-0108Wgjdlkt encounter procedureJef Sierra DPM Work Phone: [facility] PodiatryComment on above: Ulcer of left foot with fat layer exposed (HCC) (Primary Dx)Start: 12-13-2020 ambulatoryKRYSTYNA BUSBYFacility:[facility]AStart: 77-18-9145eeiqelhmul SHARON Cynthia KIERRAFacility:[facility]AStart: 28-74-5789Mdjloj Only Jef Sierra DPM Work Phone: [facility] PodiatryStart: 12-05-2020 End: 64-36-5061pxepmoevokEGBAGRHQ DILLON JR.[facility] AmbulatoryStart: 11-16-2020 End: 30-91-7940ukavwhzmltLIMVBTME DILLON JR.[facility] AmbulatoryStart: 10-17-2020 End: 88-55-9907kvtidndoabVOCXOZMW DILLON JR.[facility] AmbulatoryStart: 10-17-2020 End: 74-79-6392Xwhgrg outpatient visit 15 minutesJekavon Sierra DPM Work Phone: [facility] PodiatryComment on above: Chronic ulcer of great toe of left foot, unspecified ulcer stage (HCC) (Primary Dx)Start: 10-10-2020 End: 31-00-4989Azxpdl outpatient visit 25 Liz Matos MD Work Phone: [facility]itrick HospitalComment on above: Primary open angle glaucoma (POAG) of right eye, severe stage (Primary Dx); Primary open angle glaucoma (POAG) of left eye, severe stage; Diabetic macular edema; PseudophakiaStart: 10-03-2020 End: 50-60-1956udambinpjjWikkci Mmp-Mk7Afbtfhdo [facility] Start: 10-03-2020 End: 14-85-1737Rgqyxru encounter procedureFranck Mtz MD Work Phone: Infusion [facility] Outpatient CareComment on above: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) Start: 09-26-2020 End: 37-67-4699Qumvlsdhfz hospital visit by physicianFranck Mtz MD Work Phone: Imaging [facility] Outpatient CareComment on above:ArrivedStart: 09-26-2020 End: 24-37-6096Iqxrgq outpatient visit 25 Rehana Mtz MD Work Phone: Neurology [facility] Outpatient CareComment on above: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) Start: 09-21-2020 End: 05-19-5460vrsvujykxqKzmklr Mmp-Wb5Dnozloya [facility] Start: 09-21-2020 End: 08-34-5321Hneeyzi encounter procedureNeri Santa DO Work Phone: Infusion [facility] Outpatient CareComment on above: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) Start: 09-14-2020 End: 40-88-7128zwykmhqhtbKMNXGDTX DILLON JR.[facility] AmbulatoryStart: 09-14-2020 End: 26-48-7416Cfdxir outpatient visit 15 minutesJef Sierra DPM Work Phone: [facility] PodiatryComment on above: Great toe pain, left (Primary Dx); Foot abscess, leftStart: 09-13-2020 End: 86-18-5341Mckvn Teodoro Sierra DPM Work Phone: [facility] PodiatryComment on above: Asthma, unspecified asthma severity, unspecified [...] lower leg with muscle involvement without evidenceof necrosis (HCC)Start: 09-13-2020 End: 46-02-8747Zceyyd outpatient visit 25 minutesLuis Miguel Kaur MD Work Phone: [facility] EndocrinologyComment on above:Type 2 diabetes mellitus with diabetic polyneuropathy, with long-term current use of insulin (Primary Dx); Acquired hypothyroidismStart: 66-87-1836voaunyzizxHRSEBNFA DILLON JR.[facility] AmbulatoryStart: 04-25-2020 End: 61-15-3683Xpiqst Jose Chamberlain Work Phone: [facility]ERT[facility] Start: 02-17-2020 End: 70-25-2648Eqgfybgazi hospital visit by physicianSr HouseW Laboratory Start: 01-27-2020 End: 98-57-6564Ckrvjns encounter procedureCHARLES HOUSEFacility:M5Fvake: 12-22-2019 End: 97-67-6815Dgpvwan encounter procedureCHALionelCASSIDY SANTAFacility:E3Aleuu: 12-20-2019 End: 94-54-4602Dpkhkphph department patient visitCHAALVINO SANTAaMrkmalvin [facility] CenterStart: 12-20-2019 End: 23-39-6319Sugfacspg department patient visitAndres Chaudharyn Neri Lubin Work Phone: [facility] Emergency DepartmentComment on above:Avulsion of fingernail, initial encounter (Primary Dx)Start: 05-29-2018 End: 04-51-8955Fqzmovism department patient visitDobessy Camara Work Phone: [facility] Emergency DepartmentComment on above:Cellulitis (Primary Dx)Start: 01-20-2018 End: 06-17-9158Trhondb encounter procedureCrystal [facility] EndocrinologyComment on above:Type 2 diabetes mellitus without complication, with long-term current use of insulinStart: 01-06-2018 End: 82-66-2330Iyvxiak encounterJolenKimball County Hospital RheumatologyComment on above:AppointmentStart: 01-05-2018 End: 05-32-8058Cpqlrqp encounterNicCorewell Health [facility] EndocrinologyComment on above:Type 2 diabetes mellitus without complication, with long-term current use of insulin (Primary Dx)Start: 01-01-2018 End: 23-33-1764Dmaeuk outpatient visit 25 minutesTodd M Natasha Work Phone: [facility] EndocrinologyComment on above:Type 2 diabetes mellitus with diabetic polyneuropathy, without long-term current use of insulin (Primary Dx); Mixed hyperlipidemiaStart: 01-01-2018 End: 30-84-7942Juvkpvm encounterHistorical ProviderNeurology Madie Velazquez Start: 75-43-9984Laywzdi encounter Janelle Qureshiity:Radha Start: 81-68-8358Opqgkjq encounter Janelle Crystal:Radha Start: 11-25-2017 End: 78-63-7021Uvxuixq encounterPili Gilliam Work Phone: [facility]art: 72-94-9055Izleugo encounter procedurePili GilliamFacility:[facility]: 08-22-2017 End: 93-27-4815Truneic encounter procedureJoanne Garvin Facility:[facility]: 45-13-4251Fxeywdn encounter procedureJoanne GarvinFacility:[facility]: 28-69-3006Mxfmbny encounter procedureRedorina YanFacility:[facility]: 06-04-2017 End: 08-03-6024Jeprxxfeb department patient visitAriel Franklin Facility:[facility]: 04-11-2017 End: 20-90-4394NisnvcgdnqZdmymrz Courtney [place] Work Phone: [phone]-[facility]burgtart: 31-21-1421Rtfsau/outpatient visit, new, level 3Brian Franck Gilliam Work Phone: [facility] PhysiciansStart: 03-28-2017 End: 36-46-0300GoiaiihkpjVstcx Joseph Zimmerman Work Phone: [phone] [place], [place] [address]tart: 03-14-2017 End: 47-46-6067HpxwtskxexFasca Joseph Zimmerman Work Phone: [phone] [place] [address] Procedures DateProcedureProcedure DetailPerforming ClinicianStart: 33-08-2471Gbcsis field xm uni/bi w/interp extended examJojuliette Whitfield DO Work Phone: Start: 09-27-2024 End: 09-53-8632Vamgu medical xm&eval 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 estab ptPrimary open angle glaucoma (POAG) of both eyes, moderate stageSkylar Whitfield DO Work Phone: comment on above:Primary open angle glaucoma (POAG) of both eyes, moderate stage (Primary Dx); 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 mellitus (HCC); Left posterior capsular opacification; Dry eyesStart: 14-04-3838Jty bact xcpt urine blood/stool aerobic isolsheba [facility] COY Work Phone: Start: 95-46-5845QGPJZZZdesb [place] PA Work Phone: Start: 17-08-2290HZFZVJXUI BLOOD PRESSUREGeneric External Data ProviderStart: 87-16-7905NB FOOT SAMANTHA MIN 3 VIEWSGeneric External Data ProviderStart: 05-26-2172Hwhuinsvtmvy ophthalmic imaging optic nerve Skylarderek Whitfield DO Work Phone: Start: 06-28-2024 End: 69-55-3542Pbqrq medical xm&eval compre new pt 1/> vstPrimary open angle glaucoma (POAG) of both eyes, moderate stageBeckyjuliette Whitfield DO Work Phone: comment on above:Primary open angle glaucoma (POAG) of both eyes, moderate stage (Primary Dx); 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 mellitus (CMS/HCC); Left posterior capsular opacification; Dry eyesStart: 87-54-1603NVMD CBC W/ AUTO DIFFDaalex Shen MD Work Phone: Start: 34-61-3581Yoahr spine cervical 4 or 5 viewsAlisia Cevallos DO Work Phone: Start: 67-43-1467Rxtme spine cervical 2 or 3 views Alie Loza 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 Work Phone: Start: 12-70-5151Sfqbakgu screenDALUN TANGComment on above:Performed By: #### [id number] #### [address] [place] [address], USAStart: 46-49-9035Mvxbbza blood reagent stripSjosué Padron MD Work Phone: Start: 08-10-2021 End: 83-06-5772Phzwt of magnesiumSwelida Vega MD Work Phone: Start: 54-26-6568QXZXU METABOLIC PANEL W/ REFLEX TO MG FOR LOW Madeline Vega MD Work Phone: Start: 11-56-1633Hdflqrr blood reagent stripSjosué Padron MD Work Phone: Start: 21-83-8701Xsewvrk blood reagent stripSjosué Padron MD Work Phone: Start: 08-09-2021 End: 93-97-6576Adpqxmh blood reagent stripSjosué Padron MD Work Phone: Start: 59-00-5747Lkxwtiu blood reagent stripSjosué Padron MD Work Phone: Start: 70-21-5305Keqkckw blood reagent stripSjosué Padron MD Work Phone: Start: 67-39-7461Syyrw count complete auto&auto difrntl wbcSrinivas Vito VIVEROS Work Phone: Start: 65-31-4628Yvxafgl blood reagent stripSjosué Padron MD Work Phone: Start: 01-18-0109VZLEX METABOLIC PANEL W/ REFLEX TO MG FOR LOW KSwathi Gary VIVEROS Work Phone: Start: 57-80-4149Syjdzmj blood reagent stripSjosué Padron MD Work Phone: Start: 98-97-2051Bopgwhy blood reagent stripSjosué Padron MD Work Phone: Start: 17-30-6466Okiwjje blood reagent stripSjosué Padron MD Work Phone: Start: 82-17-0526Afiwn of thyroid stimulating hormone tshGuy Ochoa MD Work Phone: Start: 27-01-9436Romfk spine cervical 2 or 3 views Kam Loera 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 Work Phone: Start: 01-33-6509Xnyotij blood reagent stripSjosué Padron MD Work Phone: Start: 02-29-1659Pfn routine ecg w/least 12 lds i&r Irais oMore MD Work Phone: Start: 48-83-8486Nhrqtso blood reagent stripSjosué Padron MD Work Phone: Start: 25-28-9040Dmgdwdw blood reagent stripSjosué Padron MD Work Phone: Start: 28-72-5748Vdyqggz blood reagent stripSjosué Padron MD Work Phone: Start: 68-55-9433Jkfhqbe blood reagent stripSjosué Padron MD Work Phone: Start: 42-36-4987Qdzyhuo blood reagent stripSjosué Padron MD Work Phone: Start: 97-90-2108Usgnvzu blood reagent stripSjosué Padron MD Work Phone: Start: 43-60-0960Kwoxjob blood reagent stripSjosué Padron MD Work Phone: Start: 59-20-0060Nibmuqi blood reagent stripSjosué Padron MD Work Phone: Start: 08-06-2021 End: 25-65-0839Aejticf blood reagent stripSjosué Padron MD Work Phone: Start: 17-85-2927KAFUT METABOLIC PANEL W/ REFLEX TO MG FOR LOW KJkiley Coyle MD Work Phone: Start: 08-06-2021 End: 75-03-5325Zcjbk count complete auto&auto difrntl wbcSkylar Coyle MD Work Phone: Start: 43-98-0308Jyxycmj blood reagent stripSjosué Padron MD Work Phone: Start: 67-68-5037Faykfsl blood reagent stripSjosué Padron MD Work Phone: Start: 72-64-8398Bymrkdg blood reagent stripSjosué Padron MD Work Phone: Start: 13-70-0362CCJAHOCX BLOOD GAS, POCJeff Willoughby MD Work Phone: Start: 08-05-2021 End: 79-22-6900Xhzuy of Sandie Coyle MD Work Phone: Start: 98-77-5267LGQBG METABOLIC PANEL W/ REFLEX TO MG FOR MASON Coyle MD Work Phone: Start: 77-97-7487Vvljriw blood reagent Carley Willoughby MD Work Phone: Start: 05-19-4412Eiahtfh blood reagent Carley Willoughby MD Work Phone: Start: 80-75-4115Xlgslgv blood reagent Carley Willoughby MD Work Phone: Start: 79-94-2075Uzpsill blood reagent Carley Willoughby MD Work Phone: Start: 42-87-5684Hocfj of Joanne Coyle MD Work Phone: Start: 88-90-3771GTWVE METABOLIC PANEL W/ REFLEX TO MG FOR MASON Coyle MD Work Phone: Start: 73-75-2153Ehmreiq blood reagent Carley Willoughby MD Work Phone: Start: 52-47-5148Kbmhfgg blood reagent Carley Willoughby MD Work Phone: Start: 47-23-9128Inbynco blood reagent Carley Willoughby MD Work Phone: Start: 16-69-6354Fmivkow blood reagent Carley Willoughby MD Work Phone: Start: 63-05-6971Fzzgfar blood reagent Carley Willoughby MD Work Phone: Start: 33-71-0403KBAZR METABOLIC PANEL W/ REFLEX TO MG FOR LOW Geovanna Coyle MD Work Phone: Start: 91-38-4554FLYEPRMF BLOOD GAS, Adonay Willoughby MD Work Phone: Start: 08-03-2021 End: 02-99-4204Mxjs bld gluc mntr dev cleared fda spec home useJeff Willoughby MD Work Phone: Start: 86-47-4588Fhuppzh blood reagent stripJeff Willoughby MD Work Phone: Start: 25-12-1676Drlkdnh blood reagent stripJeff Willoughby MD Work Phone: start: 68-38-4405Hvnlxsz blood reagent stripJeff Willoughby MD Work Phone: start: 37-67-8250Odjldjj blood reagent stripJeff Wilolughby MD Work Phone: start: 50-94-5204Ezxtbsa blood reagent stripJeff Willoughby MD Work Phone: start: 78-81-6169Dbybeng blood reagent stripJeff Willoughby MD Work Phone: Start: 70-77-6217JSDXFSGL BLOOD GAS, Adonay Willoughby MD Work Phone: Start: 08-02-2021 End: 19-50-9456Drath of magnesiumSkylar Coyle MD Work Phone: Start: 12-93-8734QDLXX METABOLIC PANEL W/ REFLEX TO MG FOR LOW Geovanna Coyle MD Work Phone: Start: 59-15-3082Okhzawc blood reagent stripJeff Willoughby MD Work Phone: start: 16-15-5667Fsamnax blood reagent stripJeff Willoughby MD Work Phone: Start: 66-89-0242Waxcbsi blood reagent Carley Willoughby MD Work Phone: Start: 08-01-2021 End: 08-42-8529Slgov of Sandie Coyle MD Work Phone: Start: 92-73-2599XVYWP METABOLIC PANEL W/ REFLEX TO MG FOR LOW KJonasri Coyle MD Work Phone: Start: 01-52-2767Smoqaei blood reagent stripJeff Willoughby MD Work Phone: Start: 49-16-7419Inpux count Radha Coyle MD Work Phone: Start: 03-08-8964Sglpyyb blood reagent stripJeff Willoughby MD Work Phone: Start: 07-31-2021 End: 43-87-5490Wdwijgq blood reagent stripJeff Willoughby MD Work Phone: Start: 07-31-2021 End: 09-98-8786Cypyt of Sandie Coyle MD Work Phone: Start: 79-51-2384XGAUI METABOLIC PANEL W/ REFLEX TO MG FOR LOW LEEonasri Coyle MD Work Phone: Start: 23-76-1186Zfmaute blood reagent stripJeff Willoughby MD Work Phone: Start: 07-30-2021 End: 95-22-4841Seuob count Radha Coyle MD Work Phone: Start: 04-60-2011Kkugvso blood reagent stripJeff Willoughby MD Work Phone: Start: 60-31-3816Ypdhzjxo screenChristopher Hauger DO Work Phone: Start: 07-30-2021 End: 80-61-6367GJKASLTGOQURagradbh N Lind MD Work Phone: Start: 78-56-8909SLUHG METABOLIC PANEL W/ REFLEX TO MG FOR LOW KJonathbhavik Coyle MD Work Phone: Start: 83-30-4781Ytvam count complete auto&auto difrntl Edd Coyle MD Work Phone: Start: 09-12-7787HHVWWYQG BLOOD GAS, Adonay Willoughby MD Work Phone: Start: 10-61-4144Xdzdm count Lonnie Moore MD Work Phone: Start: 07-29-2021 End: 09-16-3166Ryxdzwtakjc of packed red blood cellsTete Melgar MD Work Phone: Start: 64-92-6763Elxfx count Radha Coyle MD Work Phone: Start: 16-07-7692Szttsbj blood reagent stripJeff Willoughby MD Work Phone: Start: 62-09-6129Xsxtz typing serologic Wil Melgar MD Work Phone: Start: 84-71-9809Jliqxoy blood reagent stripJeff Willoughby MD Work Phone: Start: 74-80-3853FIIMU METABOLIC PANEL W/ REFLEX TO MG FOR LOW Geovanna Coyle MD Work Phone: Start: 07-29-2021 End: 73-22-9575Gqwwl count complete auto&auto difrntl Edd Coyle MD Work Phone: Start: 08-12-3550GBQFOKRZ BLOOD GAS, Adonay Willoughby MD Work Phone: Start: 62-96-4596Dfbvqlr blood reagent Carley Willoughby MD Work Phone: Start: 07-28-2021 End: 49-47-0543Akrxxyz Nannette Melgar MD Work Phone: Start: 66-13-7175Gribqal blood reagent Carley Willoughby MD Work Phone: Start: 94-69-8034Bddxicr blood reagent Carley Willoughby MD Work Phone: Start: 20-45-2721IOTUS METABOLIC PANEL W/ REFLEX TO MG FOR LOW Geovanna Coyle MD Work Phone: Start: 80-73-8928Fgepc count complete auto&auto difrntl Edd Coyle MD Work Phone: Start: 67-55-3798QAUCFHGP BLOOD GAS, Adonay Willoughby MD Work Phone: Start: 59-64-0444Ofxh bld gluc mntr dev cleared fda spec home useJeff Willoughby MD Work Phone: Start: 07-27-2021 End: 03-43-3287Kavag count hemoglobinSkylar Coyle MD Work Phone: Start: 65-10-1284Mjsmldb blood reagent stripJeff Willoughby MD Work Phone: Start: 84-93-0773Wbmymzb blood reagent stripJeff Willoughby MD Work Phone: Start: 07-27-2021 End: 38-48-4868Peiqivf Nannette Melgar MD Work Phone: Start: 39-74-5146ZQQYD METABOLIC PANEL W/ REFLEX TO MG FOR LOW Geovanna Coyle MD Work Phone: Start: 20-76-5066Mykqo count complete auto&auto difrntl Edd Coyle MD Work Phone: Start: 67-24-7786MPEIOWTS BLOOD GAS, Adonay Willoughby MD Work Phone: Start: 07-27-2021 End: 06-80-2231Agtv bld gluc mntr dev cleared fda spec home useJeff Willoughby MD Work Phone: Start: 35-98-2284Xzgvpqx blood reagent stripJeff Willoughby MD Work Phone: Start: 49-51-0122Rhbswyf blood reagent stripJeff Willoughby MD Work Phone: Start: 05-77-0472Zujyc count Radha Coyle MD Work Phone: Start: 94-65-7444Kqv spinal canal cervical w/o & w/contr Vaishali Page MD Work Phone: Start: 15-31-5792Awgtymq blood reagent stripJeff Willoughby MD Work Phone: Start: 69-94-8911Ahyvvhjbzs exam chest single view Missy Moore MD Work Phone: Start: 36-50-6701Fcwfcdn blood reagent stripJeff Willoughby MD Work Phone: Start: 22-24-4737LRWFYDKAPSLzcvxlkj M Grischkan MD Work Phone: Start: 50-43-8933Fpuvrgn blood reagent stripJeff Willoughby MD Work Phone: Start: 07-26-2021 End: 04-01-5752Cvyjf of magnesiumJohnny Robledo MD Work Phone: Start: 86-00-5902TUDNJ METABOLIC PANEL W/ REFLEX TO MG FOR LOW Geovanna Cyole MD Work Phone: Start: 98-31-2092EANONGDI BLOOD GAS, POCJeff Willoughby MD Work Phone: Start: 19-06-8178Xkdiv count Lonnie Moore MD Work Phone: Start: 07-25-2021 End: 61-40-4596Terek of lactateStepjoanne Kumar DO Work Phone: Start: 38-50-5831LMI REPORTEdlatia Hamm MD Work Phone: Start: 07-25-2021 End: 81-19-6704Ylpdk count Lonnie Moore MD Work Phone: Start: 78-86-1627Mv angio abd&plvis cntrst mtrl w/wo cntrst Jannette Grove MD Work Phone: Start: 08-61-4165Tj cervical spine w/o contrast materialAndrea Jemal Prado EX[employer] MECH[employer]IC - SEAT COVERS TRIMMER Work Phone: Start: 07-25-2021 End: 20-57-0211Pfkptmkuaqk of packed red blood cellsKeri Hart MD Work Phone: Start: 53-53-5958Feybnaxxdq exam abdomen 1 viewKeri Hart MD Work Phone: Start: 07-25-2021 End: 81-69-3504Gzxzb count hemoglobinMissy Moore MD Work Phone: Start: 60-31-7917Qlfymcazhwbefelxdivy w/rec awake&drowsyKasey Jong 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 Work Phone: Start: 07-25-2021 End: 07-77-4401Cygezvg ionizedManolo Caballero MD Work Phone: Start: 60-11-2073BNEKS METABOLIC PANEL W/ REFLEX TO MG FOR LOW Geovanna Coyle MD Work Phone: Start: 91-57-6548Zvdnbjvl totalXin Grove MD Work Phone: Start: 65-23-6356LKVWMLRB BLOOD GAS, POCJeff Willoughby MD Work Phone: Start: 07-25-2021 End: 78-18-9950Yylu bld gluc mntr dev cleared fda spec home useJeff Willoughby MD Work Phone: Start: 07-24-2021 End: 59-85-3717Lecep count Lonnie Moore MD Work Phone: Start: 75-22-0828Bjpzeyo blood reagent stripJeff Willoughby MD Work Phone: Start: 07-24-2021 End: 57-31-7268Uqlfb of lactateMissy Moore MD Work Phone: Start: 60-19-5639Nmkzzri blood reagent stripJeff Willoughby MD Work Phone: Start: 07-24-2021 End: 28-25-2546Nhetiiujwcg of packed red blood cellsMissy Moore MD Work Phone: Start: 32-42-8006Ccwpt centrifuge enhncd id imfluor stain eaJany Francis 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 Work Phone: Start: 07-24-2021 End: 96-13-2529Sjkdn typing serologic aboMissy Moore MD Work Phone: Start: 62-45-9782PVAOOWOT BLOOD GAS, POCJeff Willoughby MD Work Phone: Start: 07-24-2021 End: 52-99-1829Htlzx of haptoglobin quantitativeMissy Moore MD Work Phone: Start: 65-44-2422Uaowdkm function panelMissy Moore MD Work Phone: Start: 95-28-3287Uklpw s aureus methicillin resist amp probe tqSeth Stokes MD Work Phone: Start: 19-30-5243Cgdqafexxq exam chest single view Vale Schmidt MD Work Phone: Start: 64-73-8315Iw head/brain w/o contrast material Vale Schmidt MD Work Phone: Start: 48-90-5671Zq thorax w/contrast materialChris Lassiter MD Work Phone: Start: 26-49-6972Rbusftj blood reagent stripSilver Carmona MD Work Phone: Start: 29-25-3615Ngkvvasulc exam chest single view Chris Lassiter MD Work Phone: Start: 22-00-3901DXTQO METABOLIC PANEL W/ REFLEX TO MG FOR LOW KJonathbhavik Coyle MD Work Phone: Start: 61-23-6224Xusvkps blood reagent stripSilver Carmona MD Work Phone: Start: 02-84-7892Htywbhv blood reagent Peggy Robledo MD Work Phone: Start: 73-27-2841Efnruzc blood reagent Peggy Robledo MD Work Phone: Start: 14-16-2726Nkomuxn blood reagent Peggy Robledo MD Work Phone: Start: 23-00-6505KKNBJ METABOLIC PANEL W/ REFLEX TO MG FOR LOW Cassiusbhavik Coyle MD Work Phone: Start: 06-34-9140Enxlwrw blood reagent Peggy Robledo MD Work Phone: Start: 26-77-1951Hskhpug blood reagent Peggy Robledo MD Work Phone: Start: 31-84-1856Zzpdrfx blood reagent Peggy Robldeo MD Work Phone: Start: 00-87-4255Uqorvdgvzj exam chest single view Carlos Liu MD Work Phone: Start: 40-07-7541Dqkqgrb blood reagent Peggy Robledo MD Work Phone: Start: 13-09-4056Jtwggfg bacterial blood aerobic w/id Leonela Robledo MD Work Phone: Start: 87-62-0869RSDCC METABOLIC PANEL W/ REFLEX TO MG FOR LOW LEEchristinabhavik Coyle MD Work Phone: Start: 07-22-2021 End: 34-39-5645TLAVJCP, SEPSISJohnny Robledo MD Work Phone: Start: 34-69-1080BIYFZLH, BLOOD Robin Robledo MD Work Phone: [phone]: 02-58-7983Sxqniyp blood reagent Peggy Robledo MD Work Phone: Start: 91-40-8735Ooxkiqz blood reagent stripJohnny Robledo MD Work Phone: Start: 55-97-3691Nodwzse blood reagent stripJohnny Robledo MD Work Phone: Start: 26-11-3126ZJJVW METABOLIC PANEL W/ REFLEX TO MG FOR LOW Geovanna Coyle MD Work Phone: Start: 07-21-2021 End: 55-14-5673Tobuw count complete automatedJohnny Robledo MD Work Phone: Start: 98-46-6905Qcyonll blood reagent stripJohnny Robledo MD Work Phone: Start: 34-16-9718Mwsohlf blood reagent stripJohnny Robledo MD Work Phone: Start: 43-02-7906Egfhs of troponin Yonatan Schmidt MD Work Phone: Start: 07-20-2021 End: 52-05-3380Jkepn of troponin Yonatan Schmidt MD Work Phone: Start: 66-98-5766Hzuhbpn blood reagent Peggy Robledo MD Work Phone: Start: 59-66-4568Jnb routine ecg w/least 12 lds trcg only w/o i&rByary Castro MD Work Phone: Start: 00-12-2794Sckfe of magnesiumJohnny Robledo MD Work Phone: Start: 36-07-3447LKXCD METABOLIC PANEL W/ REFLEX TO MG FOR LOW Geovanna Coyle MD Work Phone: Start: 72-49-7119Wlyxixntcz exam chest single view Deborah Castro MD Work Phone: Start: 96-60-6766Ghnzmdrgab exam abdomen 1 viewDeborah Castro MD Work Phone: Start: 26-90-5467Nmwornj blood reagent Peggy Robledo MD Work Phone: Start: 73-52-6591Zegcrme blood reagent stripJohnny Robledo MD Work Phone: Start: 37-16-7576Tbmktgaqbii panelJohnny Robledo MD Work Phone: Start: 08-09-4454Hnrxthk blood reagent stripJohnny Robledo MD Work Phone: Start: 16-63-0646Wzppaufany exam abdomen 1 Gamaliel Robledo MD Work Phone: Start: 07-19-2021 End: 87-53-4739Ugkbvcvyvbk Aguilar Robledo MD Work Phone: Start: 82-30-7302WOZCE METABOLIC PANEL W/ REFLEX TO MG FOR LOW Geovanna Coyle MD Work Phone: Start: 07-18-2021 End: 43-40-9750Kdsujevqvsf Aguilar Robledo MD Work Phone: Start: 31-41-9466Nhwxboyezi exam abdomen 1 Gamaliel Robledo MD Work Phone: Start: 24-50-4972Elewkdmjzs microscopic onlyCarlos Liu MD Work Phone: Start: 50-88-9066Yjxwm dip stick/tablet rgnt auto w/o microscopyCarlos Liu MD Work Phone: Start: 07-18-2021 End: 80-26-1456Kpvuuiympwj Aguilar Robledo MD Work Phone: Start: 20-23-0878HMRAIFNO REJECTIONJohnny Robledo MD Work Phone: Start: 25-70-3391Cgnnniv blood reagent stripJohnny Robledo MD Work Phone: Start: 85-60-9768Bnokjnbhzf exam swallow function contrast Apoorva Robledo MD Work Phone: Start: 32-47-5391Asjhbfbwpzw Aguilar Robledo MD Work Phone: Start: 07-18-2021 End: 48-45-0611Ojfmd of Kimberly Vega MD Work Phone: Start: 81-60-5607WJEQM METABOLIC PANEL W/ REFLEX TO MG FOR LOW KSwathi Gary VIVEROS Work Phone: [phone]: 80-00-4473Ngtdjop blood reagent stripJohnny Robledo MD Work Phone: Start: 07-17-2021 End: 72-63-8411Mgjmqmwmtru panelBecki Chang MD Work Phone: Start: 68-98-4927Uxjds of osmolality bloodAddy Horton MD Work Phone: Start: 16-17-5380Zuhwgca blood reagent stripJohnny Robledo MD Work Phone: Start: 35-62-4598Tcxaw count complete auto&auto difrntl wbcJohnny Robledo MD Work Phone: Start: 18-75-5903Xcjsnbt bacterial blood aerobic w/id isolatesJohnny Robledo MD Work Phone: Start: 22-40-5675BKVEZZT, SEPSISJohnny Robledo MD Work Phone: Start: 69-05-5533MJMGORH, BLOOD 1Bcalvin Robledo MD Work Phone: Start: 07-17-2021 End: 61-79-6654Rrfra of Kimberly Vega MD Work Phone: Start: 53-57-2566OSSRR METABOLIC PANEL W/ REFLEX TO MG FOR LOW DIPIKAnealthi Gary VIVEROS Work Phone: Start: 53-02-8234Llwqcxc blood reagent stripSilver Carmona MD Work Phone: Start: 07-16-2021 End: 50-40-0027Ermba of magnesiumBecki Chang MD Work Phone: Start: 07-16-2021 End: 18-65-6465Mnyci of magnesiumTami Vega MD Work Phone: Start: 29-52-6981GOHTLRCSB W/ REFLEX TO MAGNESIUM Tami Vega MD Work Phone: Start: 04-27-1917Lbmoesm blood reagent stripSilver Carmona MD Work Phone: Start: 26-57-5720Gmfom of magnesiumTami Vega MD Work Phone: Start: 28-44-0559ONGLD METABOLIC PANEL W/ REFLEX TO MG FOR LOW KSharriet Vega MD Work Phone: Start: 19-79-6729N-reactive proteinSharriet Vega MD Work Phone: Start: 37-74-2000Pefbyak blood reagent stripSilver Carmona MD Work Phone: [phone]: 30-42-7083Dstfg count hemoglobinBecki Chang MD Work Phone: Start: 61-37-9110Egofabw blood reagent stripSilver Carmona MD Work Phone: Start: 48-53-6474Mt thorax w/o contrast materialBecki Chang MD Work Phone: Start: 33-93-7485Rwdfw of magnesiumSilver Carmona MD Work Phone: Start: 61-87-9081UDXIGMMFQ W/ REFLEX TO MAGNESIUM Silver Carmona MD Work Phone: Start: 41-97-3429Aaxnpbp blood reagent stripSilver Carmona MD Work Phone: Start: 52-33-9708JJBGODMZ REJECTIONTami Vega MD Work Phone: Start: 35-87-0529Jvghzbx blood reagent stripSilver Carmona MD Work Phone: Start: 26-57-0521Qslxp of glutamyltrase gammaBridgette Stemple [employer] MECH[employer]IC - SE[employer]OVERS TRIMMER Work Phone: Start: 99-99-2969RTOAR METABOLIC PANEL W/ REFLEX TO MG FOR LOW KSharriet Vega MD Work Phone: Start: 55-01-6862Vkgvjxo function panelWorcester [facility] [employer] MECH[employer]IC - SEAT COVERS TRIMMER Work Phone: Start: 97-50-3366Ftx routine ecg w/least 12 lds trcg only w/o i&rSharriet Vega MD Work Phone: Start: 30-16-1286Fkkuevy blood reagent stripSilver Carmona MD Work Phone: Start: 09-11-2572Gjkgxvt blood reagent stripSilver Carmona MD Work Phone: Start: 80-01-0273Tnezver bacterial blood aerobic w/id isolatesWorcester Recovery Center [facility] [employer] MECHANIC - SEAT COVERS TRIMMER Work Phone: Start: 23-56-3662OFIJDTE, BLOOD 1Bridgette [facility] EXPER[employer] SLED MECHANIC - SEAT COVERS TRIMMER Work Phone: Start: 43-68-4263Zjlgt of magnesiumChristopher Blair Villarreal MD Work Phone: Start: 92-87-7227KGRFL METABOLIC PANEL W/ REFLEX TO MG FOR LOW KChomero Villarreal MD Work Phone: Start: 74-03-1402QDKBI-19, RAPIDChbarron Villarreal MD Work Phone: Start: 34-14-2600Pzpwktysiv exam chest single view Anthony Villarreal MD Work Phone: Start: 07-13-2021 End: 79-82-3766MFKPBXK, BLOOD 1Chradonis Villarreal MD Work Phone: Start: 07-13-2021 End: 12-18-6111Oleoh of lactateChbarron Villarreal MD Work Phone: Start: 41-64-8701Qvpan spine cervical 2 or 3 views Kam Carmonaede [employer] MECH[employer]IC - SE[employer]OVERS TRIMMER Work Phone: Start: 17-45-5352Qkqu prph ctr vad w/subq port age 3 yr/>Meka Crowe MD Work Phone (unformatted): [phone]: 41-09-0521BRQKX-19, Navin Argueta MD Work Phone: Start: 54-99-8078Li cervical spine w/o contrast materialAndrelars Prado [employer] MECHANIC - SE[employer] COVERS TRIMMER Work Phone: Start: 54-98-6729Lcowgva blood reagent stripSilver Carmona MD Work Phone: Start: 39-07-8183Twttxuw blood reagent stripSilver Carmona MD Work Phone: Start: 78-93-8359Hccls of magnesiumPardeep Bernard VIVEROS Work Phone: Start: 06-34-7586ZEHMH METABOLIC PANEL W/ REFLEX TO MG FOR LOW KPardeep Bernard VIVEROS Work Phone: Start: 19-29-5441R-reactive proteinDapbel Marcell Argueta MD Work Phone: Start: 73-85-0891Vazmmrz blood reagent stripJohnny Robledo MD Work Phone: Start: 38-82-2865TXTPF-, Navin Argueta MD Work Phone: Start: 77-25-3870Lnfodnm blood reagent stripJohnny Robledo MD Work Phone: Start: 47-06-3296Qtgwvcl blood reagent stripJohnny Robledo MD Work Phone: Start: 76-47-6437Agcibfm blood reagent stripJohnny Robledo MD Work Phone: Start: 07-09-2021 End: 63-62-6135Nuqigzv blood reagent stripJohnny Robledo MD Work Phone: Start: 07-09-2021 End: 80-83-4072Zjmonkg blood reagent Peggy Robledo MD Work Phone: Start: 97-32-8821Yekmrjl blood reagent stripJohnny Rboledo MD Work Phone: Start: 85-44-9378KHSUQ METABOLIC PANEL W/ REFLEX TO MG FOR LOW KPardeep Bernard VIVEROS Work Phone: [phone]: 52-19-5599Kvxlq count complete auto&auto difrntl wbcDaniel Marcell Argueta MD Work Phone: Start: 08-55-5395C-reactive proteinDanitorsten Argueta MD Work Phone: [phone]: 83-17-3016Drrhvxo blood reagent Peggy Robledo MD Work Phone: [phone]: 73-11-6809Mlvtcqq blood reagent Peggy Robledo MD Work Phone: [phone]: 00-63-6285Mbjzzct blood reagent Peggy Robledo MD Work Phone: Start: 80-94-7045Zfyax count hemoglobinSwathi Gary VIVEROS Work Phone: Start: 27-02-2150Kyoqv of magnesiumPardeep Bernard VIVEROS Work Phone: [phone]: 77-91-2740IRCNQ METABOLIC PANEL W/ REFLEX TO MG FOR LOW KPardeep Bernard VIVEROS Work Phone: Start: 38-26-1149A-reactive proteinDaalex Argueta MD Work Phone: [phone]: 51-82-8761SNAUTYY, BLOOD 1Daniel Marcell Argueta MD Work Phone: Start: 68-94-6627Xhoswzd blood reagent Peggy Robledo MD Work Phone: [phone]: 81-74-1115Ayniacn blood reagent Peggy Robledo MD Work Phone: Start: 82-97-5547Sgqnxes blood reagent stripJohnny Robledo MD Work Phone: Start: 70-92-6353PLUABUU, BLOOD 1Daniel Marcell Argueta MD Work Phone: Start: 54-62-0361Lrfnurxh screenAlexandlaisha Martinez MD Work Phone: Start: 79-02-3006Bceqdbiumd microscopic onlyRufus Argueta MD Work Phone: [phone]: 28-57-8623Cifit dip stick/tablet rgnt auto w/o microscopyDaalex Argueta MD Work Phone: Start: 82-07-9930XGMRC METABOLIC PANEL W/ REFLEX TO MG FOR LOW KPardeep Bernard VVIEROS Work Phone: Start: 48-49-9786Deznb count complete auto&auto difrntl wbcDaalex Argueta MD Work Phone: Start: 68-70-6945H-reactive proteinDaalex Argueta MD Work Phone: Start: 03-63-9976Kgh prsmptv pthgnc organism scrn w/colony estimjAlisia Cevallos DO Work Phone: Start: 08-62-7163Ybbqgco blood reagent stripJohnny Robledo MD Work Phone: Start: 45-92-6544Fylpizdoyij during operationXin Vaishali Cevallos DO Work Phone: Start: 11-49-2774Cyfswla ionizedJohnny Robledo MD Work Phone: Start: 27-58-4747JHLT HEART PANELJohnny Robledo MD Work Phone: Start: 96-86-9955Kscxqyk bacterial quanttative colony count urineJohnny Robledo MD Work Phone: Start: 07-06-2021 End: 46-13-1051Dljrrexuddk of packed red blood cellsBremiguel Canales EXPERIM[employer] ROCKET 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 Start: 04-64-3837Dhhpg typing serologic aboJohnny Robledo MD Work Phone: Start: 63-40-6133WVJCG GAS, ARTERIALJohnny Robledo MD Work Phone: Start: 33-77-8862Dudnhhh ionizedJohnny Robledo MD Work Phone: Start: 98-43-1296KRXRQCKR, WHOLE BLOODJohnny Robledo MD Work Phone: Start: 23-37-9710ZNCN HEART H&HBcalvin Robledo MD Work Phone: Start: 30-96-0056OISYYN, WHOLE BLOODJohnny Robledo MD Work Phone: Start: 07-06-2021 End: 77-27-5059QCPGHILB LAMINECTOMY FUSIONXin Vaishali Cevallos DO Work Phone: Start: 61-31-4142Ebvtgra blood reagent stripJohnny Robledo MD Work Phone: Start: 04-69-9204Xpmwics bacterial quanttative colony count urineDaalex Argueta MD Work Phone: Start: 07-06-2021 End: 09-90-1341Eziki of magnesiumPardeep Bernard VIVEROS Work Phone: Start: 10-63-8048HINBJ METABOLIC PANEL W/ REFLEX TO MG FOR LOW KPardeep Bernard VIVEROS Work Phone: Start: 28-39-5466B-reactive proteinDaalex Argueta MD Work Phone: Start: 96-80-3458Uijdzdz blood reagent stripJohnny Robledo MD Work Phone: Start: 21-64-1570Gnv brain brain stem w/o w/contrast materialSindy Sunshine APRN - GROMMET WORKER Work Phone: Start: 36-38-8489Gpskfwa blood reagent stripJohnny Robledo MD Work Phone: Start: 80-92-8869Rcqhctdkrb exam swallow function contrast studyKasey Jong 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 Work Phone: Start: 07-05-2021 End: 72-22-9781Abtxmvbih serum plasma/whole bloodSwelida Vega MD Work Phone: Start: 85-13-3465Ydlselp blood reagent stripJohnny Robledo MD Work Phone: Start: 99-76-5609Mnqkc of Christi Wagner MD Work Phone: Start: 45-74-7782DUTCX METABOLIC PANEL W/ REFLEX TO MG FOR LOW KPardeep Bernard VIVEROS Work Phone: Start: 23-87-0210T-reactive proteinRufus Argueta MD Work Phone: Start: 82-39-1058Lbtmfay blood reagent stripJohnny Robledo MD Work Phone: Start: 24-59-8012Htp spinal canal cervical w/o & w/contr matrlAndrea L Carlae EX[employer] MECHANIC - SE[employer]OVERS TRIMMER Work Phone: Start: 44-20-5090Npylolt blood reagent stripJohnny Robledo MD Work Phone: Start: 07-04-2021 End: 42-09-6511KXEYMKW, BLOOD 1Julia Lars Bray 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 Work Phone: Start: 99-06-8266Kfuxebg blood reagent stripJohnny Robledo MD Work Phone: Start: 07-04-2021 End: 94-01-7141Xutzw of magnesiumHari Wagner MD Work Phone: Start: 32-06-5800RLOYU METABOLIC PANEL W/ REFLEX TO MG FOR LOW KPardeep Bernard VIVEROS Work Phone: Start: 97-60-3870B-reactive proteinRufus Argueta MD Work Phone: Start: 57-22-0607Gdqwtpr blood reagent stripJohnny Robledo MD Work Phone: Start: 70-35-8973Eqkjo spine cervical 2 or 3 Tonya Sen MD Work Phone: Start: 26-58-6227Avevwhyxq serum plasma/whole blood Hari Wagner MD Work Phone: Start: 27-16-0697Wsgvzpk blood reagent stripJohnny Robledo MD Work Phone: Start: 13-36-5226Dehs &/joint imaging 3 phase study Meka Crowe MD Work Phone (unformatted): [phone]: 36-85-7781Jpwuglh blood reagent strip Johnny Robledo MD Work Phone: Start: 86-76-7236Xrkysmwaon exam swallow function contrast studyDaalex Argueta MD Work Phone: Start: 62-67-5209Rybz tthrc r-t 2d w/wom-mode compl spec&colr Carrie Crowe MD Work Phone (unformatted): [phone]: 44-08-1195Txacmwd blood reagent strip Jonhny Robledo MD Work Phone: Start: 21-43-9074Queln of magnesiumParelizabeth Wagner MD Work Phone: Start: 59-17-8268ELBMZ METABOLIC PANEL W/ REFLEX TO MG FOR LOW KPardeep Bernard VIVEROS Work Phone: Start: 98-39-6744P-reactive proteinDaalex Argueta MD Work Phone: Start: 25-01-5448NNZPSZT, BLOOD 1Silver Carmona MD Work Phone: Start: 07-02-2021 End: 28-30-7534Xkwra count hemoglobinParelizabeth Wagner MD Work Phone: Start: 64-69-1386Sujkwygzr serum plasma/whole blood Silver Carmona MD Work Phone: Start: 71-17-6894Vmfeded blood reagent stripSilver Carmona MD Work Phone: Start: 23-86-0939Wgdci count hemoglobinParelizabeth Wagner MD Work Phone: Start: 64-08-1767JGMVBFZ, BLOOD 1Argenna Crowe MD Work Phone (unformatted): [phone]: 07-02-2021 End: 74-10-6168Mvazespivziom intra/transmural needle aspirat/bxParelizabeth Wagner MD Work Phone: Start: 74-01-4550Joiwsba blood reagent stripSilver Carmona MD Work Phone: Start: 15-59-9030Efdztcgje serum plasma/whole blood Rufus Argueta MD Work Phone: Start: 22-80-0747Imdsyfq blood reagent stripSilver Carmona MD Work Phone: Start: 53-57-4708Taswoqy blood reagent stripSilver Carmona MD Work Phone: Start: 85-28-1551Iyjgs of magnesiumHuhaylie Steve MD Work Phone: Start: 64-46-7058WPCCN METABOLIC PANEL W/ REFLEX TO MG FOR LOW KPardeep Bernard VIVEROS Work Phone: Start: 79-07-1030D-reactive proteinDanitorsten Argueta MD Work Phone: Start: 07-01-2021 End: 28-55-4133Mfgjm count hemoglobinHari Wagner MD Work Phone: Start: 64-58-7782RTITY OSTOMY EVALWarhona Carmona MD Work Phone: Start: 07-01-2021 End: 51-55-6310Tvmbwha blood reagent stripSilver Carmona MD Work Phone: Start: 18-31-4790Lppkkttbh serum plasma/whole blood Tami Vega MD Work Phone: Start: 74-08-0814Zcbedyb blood reagent stripSilver Carmona MD Work Phone: Start: 07-01-2021 End: 62-27-8462Yycdq of magnesiumTami Vega MD Work Phone: Start: 88-41-9048Vrmwa of magnesiumJonathan Steve MD Work Phone: Start: 22-69-1314RTQSL METABOLIC PANEL W/ REFLEX TO MG FOR LOW KPardeep Bernard VIVEROS Work Phone: Start: 80-62-2787Q-reactive proteinDapbel Marcell Argueta MD Work Phone: Start: 44-09-4054VHPSIPA, BLOOD 1Argenna Crowe MD Work Phone (unformatted): [phone]: 06-30-2021 End: 18-71-0390Xupxg count hemoglobinPardejoshua Wagner MD Work Phone: Start: 69-48-6251Sfxtsqh blood reagent stripSilver Carmona MD Work Phone: Start: 22-51-7947Agvldhn blood reagent strip Jenifer Jewell MD Work Phone: Start: 75-99-8783Mknwj foot complete minimum 3 views Becki Chang MD Work Phone: Start: 06-30-2021 End: 79-37-0716Phuvp count hemoglobinJonathan Steve MD Work Phone: Start: 98-79-7501DMHULRU, BLOOD 1Argenna rCowe MD Work Phone (unformatted): [phone]: 36-01-5282R-reactive proteinDaniel Marcell Argueta MD Work Phone: Start: 32-47-4127Wukabsa blood reagent strip Jenifer Jewell MD Work Phone: Start: 27-29-1927Zw cervical spine w/contrast material Meka T Aouad MD Work Phone (unformatted): [phone]: 92-36-6448Lr thorax w/o contrast materialMeka Crowe MD Work Phone (unformatted): [phone]: 15-79-2697Uwnbxdfxzi exam chest single viewBecki Chang MD Work Phone: Start: 24-61-7701ZEWGJOJRRQS PANEL, MOLECULAR, WITH COVID-19Becki Chang MD Work Phone: Start: 18-91-8259Vytwsea blood reagent strip Jenifer Jewell MD Work Phone: Start: 03-52-8142Lnihn centrifuge enhncd id imfluor stain Naomi Chang MD Work Phone: Start: 93-20-0093Abqthakpdijjlqlbzlfs w/rec awake&drowsyIsrar Ul John VIVEROS Work Phone: Start: 01-96-0408Ropjoma blood reagent strip Jenifer Jewell MD Work Phone: Start: 06-29-2021 End: 49-51-1009Lrrpn of troponin quantitativeJonathan Steve MD Work Phone: Start: 24-08-0852I-reactive proteinJonathan Steve MD Work Phone: Start: 72-90-5761Spzgs of magnesiumSubrabola Jewell MD Work Phone: Start: 83-69-8712CZTBT METABOLIC PANEL W/ REFLEX TO MG FOR LOW KSubrabola Jewell MD Work Phone: Start: 54-70-9381Pp cell mediated antign respnse gamma interferonJenifer Jewell MD Work Phone: Start: 13-14-7744Mra routine ecg w/least 12 lds trcg only w/o i&rRcristy Chang MD Work Phone: Start: 78-50-4460Ciuspjf blood reagent strip Jenifer Jewell MD Work Phone: Start: 37-87-5358DGQXQIQ LABORATORY CHARGESparminder Jewell MD Work Phone: Start: 35-76-2913YAGGWDNY REJECTIONJenifer Jewell MD Work Phone: Start: 03-23-7866Fpwmysngem glycosylated a1c Subgabo Jewell MD Work Phone: Start: 46-29-6132Bycno panelSparminder Jewell MD Work Phone: Start: 96-71-7439Yggeh herpes somplx virus amplified probe Nathaniel Jewell MD Work Phone: Start: 06-28-2021T. PALLIDUM ABSparminder Jewell MD Work Phone: Start: 01-08-6465PYIULKSB PATHOLOGY REPORTSubgabo Jewell MD Work Phone: Start: 54-20-1943Xwuq count misc body fluids w/differential countDev Méndez MD Work Phone: Start: 01-97-2032Wslmzdf body fluid other than blood Dev Méndez MD Work Phone: Start: 06-28-2021 End: 76-02-6466Akhdt nos amplified probe tq each organismDev Méndez MD Work Phone: Start: 49-39-5206CMVOKAXITJ ENCEPHALITIS PANEL CSF, MOLECULARDev Méndez MD Work Phone: Start: 85-92-0092Jwjd flu washgs/brushings xcpt c/v smrs interpjDev Méndez MD Work Phone: Start: 86-49-7228ZZIPFCA, BLOOD 1Dev Méndez MD Work Phone: Start: 76-99-2605Yq angiography neck w/contrast/noncontrastTyler Jemal Méndez MD Work Phone: Start: 84-50-1846Ctaji of lipaseTyler Jemal Méndez MD Work Phone: Start: 39-63-7825FYLHLZO, SEPSISIsrar Wesley Lopez MD Work Phone: Start: 73-53-3446Oau routine ecg w/least 12 lds trcg only w/o i&rAlexander Yoel Martinez MD Work Phone: Start: 73-52-1509Cv abdomen & pelvis w/contrast materialChris Boothe MD Work Phone: Start: 08-06-6402Enxs screen class list Liyah Boothe MD Work Phone: Start: 06-28-2021 End: 00-62-5932Ifcrq of ammoniaChris Boothe MD Work Phone: Start: 18-31-3674TQDQB-19, RAPIDChris Boothe MD Work Phone: Start: 06-28-2021 End: 70-24-0829Trvnctuofh microscopic onlyChris Boothe MD Work Phone: Start: 71-59-0398Fgdja dip stick/tablet rgnt auto w/o microscopyChris Boothe MD Work Phone: Start: 63-25-2725Os head/brain w/o contrast material Chris Boothe MD Work Phone: Start: 87-23-1275Ewwowgrrgj exam chest single viewChris Boothe MD Work Phone: Start: 33-94-2969Solem of acetaminophenChris Boothe MD Work Phone: Start: 10-59-1832Sctye of ethanolChris Boothe MD Work Phone: Start: 94-81-8734Mnala of salicylateChris Boothe MD Work Phone: Start: 26-64-1718Scasmmhf kinase totalMark Tl VIVEROS Work Phone: Start: 66-59-4883UIQ AND ELECTRONIC Rhea Mtz MD Work Phone: Start: 12-49-6200Jfqjjjky blood count with white cell differential, automatedFranck Mtz MD Work Phone: Start: 14-27-3498Xxbeszayqi bloodFranck Mtz MD Work Phone: Start: 88-89-9652Ancbjf-up visitFollow-upNICOLE R BENAMEURStart: 99-78-5826Nlamlpyzsj examination and evaluationJef Sierra Jr., DPM Work Phone: start: 14-27-7751Phmudiovfr examination and evaluation Jef Sierra Jr. DP Work Phone: start: 03-67-6821AGFRL DRESSINGJef Sierra DP Work Phone: start: 11-86-7500Lqebvhcfqmrq ophthalmic imaging optic nerveOlga Lidia Matos MD Work Phone: Start: 27-02-9524GRJ AND ELECTRONIC Rhea Mtz MD Work Phone: Start: 53-24-5705Sdtuxnir blood count with white cell differential, automatedFranck Mtz MD Work Phone: Start: 70-22-3811Ccmfgvnbve Zena Mtz MD Work Phone: Start: 53-80-4369Vewyvmjojd examination osseous survey complFranck Mtz MD Work Phone: Start: 17-46-1290FMC AND ELECTRONIC Rhea Mtz MD Work Phone: Start: 67-62-0092Dkgckfsw blood count with white cell differential, Markie Mtz MD Work Phone: Start: 35-89-0951Dcjkpnyeln Zena Mtz MD Work Phone: Start: 12-26-2017 End: 05-20-9535RYBFCA (OUTSIDE)Historical Provider Plan of Treatment DateCare ActivityDetailAuthorStart: 09-79-8269Thqoactsvxqh Vaccine: Ped or At- Risk (2 of 2 - PPSV23)Pneumococcal Vaccine: Ped or At-Risk (2 of 2 - PPSV23) [facility]HealthStart: 12-27-2024 End: 12-23-8687Xumukqs encounter lmxxffehh61/10/2025 1:45 PM EST Office Visit [facility] [address] [place] [phone] Skylar Whitfield, DO [address] [place] [address] [facility] EyeStart: 09-27-2024 End: 21-77-5768Hushnwn encounter procedureNOMS NB OPHTComment on above:Arrived Start: 08-27-2024 End: 04-27-1552Ionvkxl encounter sgzexzhkk64/11/2025 10:30 AM EDT Office Visit [facility] [address] [place] [address] Ramona Campuzano PA [address] [place] [address] ArrivedNOMS SWS DERMComment on above:ArrivedStart: 08-23-2024 End: 57-27-0699Yoipaky encounter qdouheszl65/07/2025 10:50 AM EDT Office Visit [facility] [address] [place] [address] Nadia Quiñones, EXPERIMENTAL ROCKET SLED MECHANIC-GROMMET WORKER [address] [place] [address] [facility] DERMStart: 08-17-2024 End: 43-61-9619Htztkgk encounter exopczvus59/01/2025 10:50 AM EDT Office Visit [facility] [address] [place] [address] Nadia Quiñones, EXPERIMENTAL ROCKET SLED MECHANIC-GROMMET WORKER [address] [place] [address] [facility] D[facility]MStart: 25-36-6298Kqgdi panel LipidsBellevue Hospital HealthStart: 07-09-2023 End: 46-35-3810Vdrrdjh encounter bjomhesvh89/22/2024 9:05 AM EDT Office Visit [facility] [address] [place] [address] Nadia Quiñones, EXPERIMENTAL ROCKET SLED MECHANIC-GROMMET WORKER [address] [place] [address] [facility] DERMStart: 10-01-2022 End: 73-09-6989Gdyfiwe encounter zeogmxpct60/15/2023 Office Visit Neurosurgery Alisia Cevallos, DO [address] [place] [address] [facility] ToledoStart: 76-39-5430THH test (Diabetes, CKD 3-4, OR last GFR 15-59)GFR test (Diabetes, CKD 3-4, OR last GFR 15-59)[facility]GStart: 25-87-4859Gghjuazbyq A1c wbcuxdxnnyiB1V test (Diabetic or Prediabetic)[facility]IAMSBURGStsherwood: 07-24-2022 Screening for malignant neoplasm of colonBON [facility]ENTERStart: 65-83-7948Nkhzeglt foot examinationBON [facility]: 06-28-2022 Lipid panelBON [facility]ENTERStart: 98-88-4050Wvnxgwqa retinal exam Diabetic retinal examBON [facility]ENTERStart: 34-70-9279Sbcakdkt retinal eye examEYE EXAMOSU Centervilletart: 88-40-5834Qrullbym screening Diabetic retinal examBON [facility] Hospitalart: 08-43-1423DOG [facility]: 67-07-5330LQYDVFFVEEEGEID Centervilletart: 03-15-2022 Microalbumin measurement, urine, quantitativeURINE MICROALBUMIN TESTOSU Centervilletart: 10-54-1217Susxpqp stimulating hormone measurementTSCleveland Clinic Mentor Hospitaltart: 03-08-2022 End: 55-27-3825Ianyhjf encounter fofbgpysn17/20/2023 Office Visit Neurosurgery AlisiaAlisia, DO [address] [place] [id number] [facility]: 02-14-2022 Ophthalmic examination and evaluationOphthalmology ExamOhioHealthStart: 71-08-7806Xllroohkqb examination and evaluationOphthalmology ExamOhioHealth Start: 12-07-2021 End: 35-90-8314Frkmsos encounter eyyuombst78/21/2022 Office Visit [facility]art: 51-08-5069Cfennnkzp vaccinationFlu vaccine (Season Ended)[facility]art: 02-77-1974FGV [facility]: 10-05-2021 Diabetic retinal eye examDIABETIC EYE EXAMOSU Centervilletart: 51-32-3600Ryfhzrwlzh A1c measurementBON [facility] Hospitalart: 09-17-2021 Influenza vaccinationFlu vaccine (#1)BON [facility] Hospitalart: 09-13-2021 Diabetic retinal eye examDIABETIC EYE EXAMOSU Centervilletart: 81-43-5207Uwiiuscpes A1c nmocybwvbclPTY0M TESTOSU Centervilletart: 76-10-6944EIHYKHXUJFIERenuv Health SystemStart: 36-74-5514Ouhnxupmxkyc measurement, urine, quantitativeURINE MICROALBUMIN TESTShelby Memorial Hospital SystemStart: 06-70-1721Quviachjb [Moles/volume] in Serum or PlasmaPOTSt. Elizabeth Hospitaltart: 08-22-2021 End: 43-19-2531CTIDNOGL LAMINECTOMY [facility]tart: 08-22-2021 End: 61-79-2432EQUB ORStart: 01-78-6834Qbxhhefc retinal eye examDIABETIC EYE EXAMProMedica Defiance Regional Hospitaltart: 08-08-2021 End: 00-46-8511Jsqinzr encounter mgvtemarr93/22/2022 Office Visit Infectious Diseases Meka Crowe MD [address] [facility], [address] [place], [place] [address] [phone] (Work) [facility]. Start: 07-31-2021 End: 80-08-2155Txryvow encounter ibuksiqvp31/14/2022 Office Visit Podiatry Jef Sierra Jr., DPM [address] [place] [address] [facility] PodiatryStart: 07-25-2021 End: 97-49-5186Fieycyy encounter crizkryng10/08/2022 Office Visit Neurosurgery Alie Loza, 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 [address] [facility] [address] [place], [place] [address] [facility] [place]edoStart: 07-17-2021 End: 74-84-6485Tblcvre encounter hiivmkbar94/31/2022 Office Visit Urology Kevin Quintanilla MD [address], [place] [address] [phone] [facility]rology CenterStart: 07-13-2021 End: 04-70-0492Iibfp metabolic 2000 panel - Serum or PlasmaBON [facility] Work Phone: start: 07-10-2021 End: 63-39-8106Wstljfx encounter zlvgnzupz91/24/2022 Office Visit Neurology Franck Mtz MD [address] [place] [address] Neurology [facility] CareStart: 51-48-1474Vifyfregxc A1c vxkxbqmuyobX9GQshuUzohvbLgvss: 07-04-2021 End: 98-47-4696byjgiyqqmc79/18/2022 Infusion Visit NeurologyInfusion [facility] CareStart: 06-20-2021 End: 62-95-4819ezzsrnmowh72/04/2022 Infusion Visit NeurologyInfusion [facility] CareStart: 06-18-2021 End: 58-78-6452Wmuwspv encounter qtksiguru09/02/2022 Office Visit Endocrinology, Diabetes & Metabolism Luis Miguel Kaur MD [address] [place] [address] [facility] EndocrinologyStart: 06-07-2021 End: 54-79-3202Mbgmrws encounter tsmwyzyll12/21/2022 Office Visit Ophthalmology Sharon Hernandez MD [address] [place] [address] [facility] Start: 06-06-2021 End: 52-58-4942kvbhgnvlke19/20/2022 Infusion Visit NeurologyInfcece [facility]ran Outpatient CareStart: 06-05-2021 End: 04-39-4050Jqghahb encounter kfkbxawzu37/19/2022 Office Visit Orthopaedics Yaritza Stanley MD [address] [place] [address] [facility]ics [facility] Sports MedicineStart: 05-31-2021 End: 53-49-5601Kahacar encounter rogjerfki07/14/2022 Office Visit Ophthalmology Sharon Hernandez MD [address] [place] [address] [facility] Start: 05-23-2021 End: 42-45-9925rzvlxvtpzz04/06/2022 Infusion Visit NeurologyInfusion [facility] CareStart: 05-15-2021 End: 55-46-2429Ahncubg encounter wjqfmflti38/29/2022 Office Visit Ophthalmology Olga Lidia Matos MD [address] [facility] [address] [place] [address] [facility]tart: 04-17-2021 End: 15-59-0344Llqyppp encounter /01/2022 Office Visit PodJef Wagner Jr., DPM [address] [place] [address] [facility] PodiatryStart: 03-06-2021 End: 13-37-2886Yffsjlo encounter kfraexshw00/18/2022 Office Visit Jef Vieira Jr., DPM [address] [place] [address] [facility] PodiatryStart: 03-04-2021 Hemoglobin A1c measurementOhioHealthStart: 02-20-2021 End: 85-15-5396Vikcicc encounter yuhbpesca55/04/2022 Office Visit Jef Vieira Jr., DPM [address] [place] [address] [facility] PodiatryStart: 2021 End: 64-34-4395Khzzfbf encounter vmdvdyxau28/21/2021 Office Visit Jef Vieira Jr., DPBlair [address] [place] [address] [facility] PodiatryStart: 01-30-2021 End: 46-27-1156Nawqmih encounter nofiggduk23/14/2021 Office Visit Jef Vieira Jr., DPM [address] [place] [address] [facility] PodiatryStart: 01-23-2021 End: 61-43-5493Honhcqd encounter ksivuvjlz98/07/2021 Office Visit Jef Vieira Jr., DPBlair [address] [place] [address] [facility] PodiatryStart: 01-16-2021 End: 47-83-2517Aadxnrc encounter rcxtmutkz98/30/2021 Office Visit Jef Vieira Jr., DPBlair [address] [facility] [place] [address] [facility] PodiatryStart: 01-09-2021 End: 28-70-5011Rfaqwkc encounter sibtekbmj04/23/2021 Office Visit Jef Vieira Jr., DPBlair [address] [place] [address] [facility] PodiatryStart: 01-01-2021 End: 39-64-5304Ketoxpl encounter ezzsbxtde40/15/2021 Office Visit Neurology Nurys Thornton, EXPERIMENTAL ROCKET SLED MECHANIC-GROMMET WORKER [address] [address] Neurology [facility] Start: 12-26-2020 End: 93-47-7795Bqahfls encounter misngrqod53/09/2021 Office Visit PodiatrJef Boykin Jr., DPM [address] [place] [address] [facility] PodiatryStart: 12-02-2020 Hemoglobin A1c srfqfyaoghlR7HJbjyDqitehWmdjc: 11-30-2020 End: 83-82-8403Blrdnsa encounter mqnogcumg04/14/2021 Office Visit Ophthalmology Sharon Hernandez MD [address] [facility] [address] [place] [address] [facility] Start: 11-16-2020 End: 75-30-3218Aclqdta encounter xfzguabfr37/30/2021 Office Visit Podiatry Jef Sierra Jr., DPM [address] [place] [address] [facility] PodiatryStart: 11-16-2020 End: 84-74-5722Cxtphnz encounter oouwsfgtc10/30/2021 Office Visit Endocrinology, Diabetes & Metabolism Luis Miguel Kaur MD [address] [place] [address] [facility] EndocrinologyStart: 11-14-2020 End: 92-77-6394Etfotya encounter onpekccfk25/28/2021 Office Visit Ophthalmology Olga Lidia Matos MD [address] [place] [address] [facility]: 11-07-2020 End: 77-62-2676Lxivsws encounter lkrlocehj34/21/2021 Office Visit Neurology Nurys Thornton, EXPERIMENTAL ROCKET SLED MECHANIC-GROMMET WORKER [address] [place] [address] Neurology [facility] Start: 64-96-4214Eecktfosh vaccinationOhioHealthStart: 10-18-2020 End: 38-77-7330Qwaddkz encounter ugtcggwdv40/01/2021 Office Visit Ophthalmology Sharon Hernandez MD [address] [place] [address] [facility] Start: 10-17-2020 End: 21-60-0818kpxuujrbcj56/31/2021 Infusion Visit NeurologyInfusion [facility] Outpatient CareStart: 10-10-2020 End: 86-29-4420Bnfwkfc encounter exfxdhdsx33/24/2021 Office Visit Ophthalmology Olga Lidia Matos MD [address] [facility] [address] [place] [address] [facility] Hospitaltart: 34-56-0080Fvyeepqbacys 0-64 years Vaccine (2 - PCV)Pneumococcal 0-64 years Vaccine (2 - PCV)BON [facility]ENTERStart: 93-65-6489EIO [facility]art: 10-05-2020 End: 17-66-5715Vkipooo encounter helqaitst35/19/2021 Office Visit Ophthalmology Sharon Hernandez MD [address] [facility] [address] [place] [address] [facility] Start: 10-03-2020 End: 61-16-7220sdgnbgpyrlYfyaszqe [facility] Outpatient CareStart: 10-03-2020 End: 55-63-6168Vjnkrst encounter yijduzfgd97/17/2021 Office Visit Podiatry Jef Sierra Jr., DPM [address] [place] [address] [phone] [facility] PodiatryStart: 09-26-2020 End: 58-17-6994TDTTWWR MOTOR NEUROPATHY [facility] Work Phone: comment on above:Expected: 09/26/2020, Expires: 09/26/2021tart: 09-26-2020 End: 13-88-8341SSRGEXYMercy Health Tiffin HospitalComment on above:Expected: 09/26/2020, Expires: 09/26/2021tart: 09-19-2020 End: 30-95-4097actujnpaak71/03/2021 Infusion Visit NeurologyInfusion [facility] Out[facility] CareStart: 09-14-2020 End: 00-59-3000Gopzapr encounter hdwnacvlj27/29/2021 Office Visit Podiatry Jef Sierra Jr., DPM [address] [place] [address] [phone] [facility] PodiatryStart: 94-77-1578Oajbvzkqa vaccinationFlu vaccine (#1)[facility], [place]Start: 10-44-4917Flzvrucfj vaccination givenSequential Influenza Vaccine (#1)[facility] HospitalStart: 08-25-2019 Creatinine measurementCreatinine monitoringLutheran Hospital, IAStart: 08-25-2019 Potassium monitoringPotassium monitoringLutheran Hospital, IAStart: 08-12-2019 Urine screening for proteinBON [facility]ENTERStart: 30-41-8712YMWLKULCMOAZ [facility] Work Phone: Start: 15-16-1643Nitydrdu retinal eye examDIABETIC EYE EXAMThe Christ Hospital Work Phone: Start: 30-71-2751Qcsncqxlfko QnTSHThe Christ Hospital Work Phone: Start: 35-63-7990Rhgntv Wellness Visit (AWV)Annual Wellness Visit (AWV)ARASELI [facility]ENTERStart: 89-49-0796UnF0a (Bld) [Mass fraction]A1C test (Diabetic or Prediabetic)[place], [place]Start: 07-06-2018 End: 19-72-0891Caipowyzih02/20/2019 Office Visit Neurology Nurys Thornton, EXPERIMENTAL ROCKET SLED MECHANIC-GROMMET WORKER [address] [place] [address] Neurology [facility]North [facility] Hospitaltart: 21-23-7772Prsgevcfbh A1c/Hemoglobin.total mass fraction (Bld)HBA1C TESTThe Christ Hospital Work Phone: Start: 26-47-7978Hawhndt mass concMAMMOGRAM SCREENING [facility] Work Phone: Start: 23-52-2935Zvwgtnvob mammographyMAMMOGRAM SCREENING DISCUSSIONOSU Centervilletart: 04-02-2018 End: 79-45-2992Wzzvorpjqr50/14/2019 Appointment NEUROPHYSIOLOGY Estefania Markham MD [address] [place] [address] Department of NeurologyStart: 03-20-2018 End: 43-09-7442Lqgihabwmb84/01/2019 Office Visit Ophthalmology Grace [place] MD [address] [place] [address] [facility]Start: 03-05-2018 End: 53-44-7118JxenbakoyhZmbnywzo of Hematology & OncologyStart: 02-03-2018 End: 48-62-1622Nzjqpviexf27/18/2018 Office Visit Sleep Medicine Stefani Estrada MD [address] [place], [place] [address] [address] [place] [address] Department of Sleep MedicineStart: 01-22-2018 End: 30-84-1080ItlmqlsvioSelme Health RheumatologyStart: 23-10-3107Uovufpszc vaccinationOhioHealthStart: 02-75-2682Ziuzbvnlv vaccination givenSEQUENTIAL INFLUENZA VACCINE (#1)[facility] HospitalStart: 64-80-9072Kzinb panelLipid [facility]- [place], [place]Start: 21-09-3607Zottlyqksk00/23/2018 Hospital Encounter Martha Yan, MARK [address] [place] [address] [phone] [facility]tart: 50-16-0780Xowuhsmdbn72/19/2018 Office Visit Cardiology Pili Gilliam, MARK [address] [place] [address] [phone] Reji Miramontes III, DO [address] [place] [address] [phone] [facility] PhysiciansStart: 17-32-0808Afhmhqbwx vaccinationSEQUENTIAL INFLUENZA VACCINE (#1)[facility] HospitalStart: 89-60-5755Wveonhpo microalbuminuria testDiabetic microalbuminuria [facility] Hospitalart: 36-80-1376Qgbogsnskwagqz of herpes zoster vaccineZoster Vaccines (2 of 3)[facility] HospitalStart: 99-96-9367Vrrahycz vaccine (1 of 2)Shingles vaccine (1 of 2)[facility]: 06-14-4481Lsrzsyyo vaccine (2 of 3)Shingles vaccine (2 of 3)[facility]: 43-33-8140Mgrgrn vaccine hzv live for subcutaneous useZOSTER (SHINGLES) VACCINE (2 of 3)[facility] Centertart: 90-61-7813GOYBon Secours [facility]: 26-68-7027Vufvtscqwtcaqk of herpes zoster vaccineZoster Vaccines (1 of 2) [facility] HospitalStart: 73-06-1429DjymetczwshPDPZC CANCER SCREENING [facility] Work Phone: Start: 44-23-0086Bvypgqk mass concCOLON CANCER SCREENING [facility] Work Phone: Start: 19-65-5052Bsbakdbtj for malignant neoplasm of breastBethesda North HospitalStart: 98-79-4101Nepddtoay for malignant neoplasm of colon [facility] HospitalStart: 68-66-4110Bdywnutg Vaccine (1 of 2)Shingles Vaccine (1 of 2) [place], [place]Start: 45-33-0605Bzrhdz vaccine hzv live for subcutaneous useZOSTER (SHINGLES) VACCINE (1 of 2)[facility] SystemStart: 02-07-2008 ColonoscopyCOLORECTAL CANCER SCREENING DISCUSSIONOSRegency Hospital Cleveland Easttart: 26-82-1515Kndaigghd for malignant neoplasm of colonMercy HealthStart: 2003 Screening for malignant neoplasm of breastMammogramFlower HospitalStart: 1993 Screening for malignant neoplasm of cervixMer HealthStart: 97-04-2755Krzbstsrw for malignant neoplasm of cervixOSRegency Hospital Cleveland Easttart: 1982 DTaP/Tdap/Td vaccine (1 - Tdap)DTaP/Tdap/Td vaccine (1 - Tdap)[facility] HospitalStart: 55-29-6034Aaytryzle B vaccine (1 of 3 - Risk 3-dose series)Hepatitis B vaccine (1 of 3 - Risk 3-dose series)[facility]GStart: 48-77-4895Jmtfj diphtheria, tetanus and acellular pertussis (DTaP) vaccinationTDAP (ADULT)[facility] Centervilletart: 85-16-8625FHI [facility]ENTERStart: 1981 Hepatitis C antibody, confirmatory testHepatitis C ScreeningOhioHealthStart: 11-65-3004Xpdfrbapc C screeningOhioGuernsey Memorial HospitalStart: 61-50-1031Zumrmiiouxeo measurement, urine, quantitativeURINE MICROALBUMIN TESTThe Christ Hospital Work Phone: Start: 09-41-9649Yroesfx vaccinationTETANUSUniversity Hospitals Elyria Medical Centertart: 80-36-6222KAZME-19 Vaccine (1 of 2)COVID-19 Vaccine (1 of 2)[facility]HealthStart: 55-44-9354IZM screeningOhioGuernsey Memorial HospitalStart: 86-66-4914LNS screeningHIV SCREENING DISCUSSIONThe Christ Hospital Work Phone: Start: 66-68-2563Zrnncpaiky depression screening assessmentDepression Screening (PHQ9)[facility]HealthStart: 74-61-8758SRLGH-19 Vaccine (1)COVID-19 Vaccine (1)[facility]HealthStart: 34-96-7560Owtupcfidw ScreenDepression ScreenBethesda North HospitalStart: 74-43-9356Tqiulnfvxy screening using PHQ-9 (Patient Health Questionnaire 9) scoreOhioHealthStart: 30-57-8016ECL [facility] Start: 54-94-7055Amsrnmus foot examination (regime/therapy)[facility]HealthStart: 41-08-9687Epbyvsis retinal examDiabetic retinal examLutheran Hospital, KYStart: 71-49-7788Vowzkdgfwhqz measurement, urine, quantitativeUrine Microalbumin [facility]HealthStart: 60-84-0850Ciwizdwiwu examination and evaluationOPHTHALMOLOGY EXAMOhioHealthStart: 31-12-0761Hwwuf, microalbuminURINE MICROALBUMINOhioHealth Start: 48-91-5305Sqxprtwzoyyi Vaccine: Ped or At-Risk (1 of 2 - PPSV23) Pneumococcal Vaccine: Ped or At-Risk (1 of 2 - PPSV23)[facility]HealthStart: 31-41-8762ZITUY-19 Vaccine (1)COVID-19 Vaccine (1)[facility]HealthStart: 58-96-5131PTJRIVERSIDE DOCTORS' HOSPITAL WILLIAMSBURGStart: 20-87-0773Lnnmmdk and physical examination, annual for health [facility] VisitOhioHealthStart: 32-55-7236SSXBR-19 Vaccine (#1)COVID-19 Vaccine (#1)[facility]Start: 28-02-0269Rzcoqm Wellness Visit (AWV)Annual Wellness Visit (AWV)[facility] Diabetic foot examinationDIABETIC FOOT EXAMOSU Centervilletart: 91-17-6021HkS8yURPFIGDEXT V8JWhkeTnkjwkQmran: 68-01-8000Qlljlenbub A1c ypvcyshyqtzR0DZynmBytdqrMrdgs: 48-18-0390Ocmawsuuc C antibody, confirmatory test HEPATITIS C SCREENINGOhioHealthStart: 18-39-7052INXGJXIZP C SCREENINGHEPATITIS C SCREENINGOhioHealthStart: 93-94-6099Slgdhkylz C screeningHepatitis C [facility] [place]Start: 51-89-7875Ejuuhsm mass concMammogramOhioHealthStart: 05-61-1578Pnfzdlofl colonoscopyCOLONOSCOPYOhioHealthStart: 31-70-8321Whmnayhbi for malignant neoplasm of cervixPAP SMEAROhioHealthStart: 69-62-6885Vsxgmjurh for malignant neoplasm of colonColorectal Cancer Screening: Colonoscopy [facility]HealthStart: 83-51-0419Dzukjqtab mammographyMammogramOhioHealthStart: 50-69-2248Pjfdfpt vaccinationOhioHealthStart: 50-21-9210LEQRIVERSIDE [facility]ORS[facility] Aerobic cultureAerobic culture Microbiology Timed Impetigo Release Upon Ordering for 1 Occurrences starting 08/27/2024[facility] Work Phone: comment on above:Release Upon Ordering for 1 Occurrences starting 08/27/2024 End: 51-72-3314Kdkgvwf microbial cultureWound Aerobic Culture Microbiology Routine Foot abscess, left 1 Occurrences starting 09/14/2020 until 09/14/2021 OhioHealthComment on above:1 Occurrences starting 09/14/2020 until 09/14/2021 Aerobic microbial cultureWound Aerobic Culture Microbiology Routine Wound infection Partial thickness burn of single finger of right hand excluding thumb, initial encounter 05/01/2021 3:00 PM EDTOhioHealth Work Phone: Basic Metabolic Panel w/ Reflex to MGBON [facility] Work Phone: basic Metabolic Panel w/ Reflex to MGBON [facility] Work Phone: bLOOD GAS, ARTERIALBON [facility] Work Phone: blood gas, arterialBON [facility] Work Phone: [phone]-mmxcstfu proteinBON [facility] Work Phone: cBC W Auto Differential panel - BloodBON [facility] Work Phone: End: 76-08-8120GHI W Auto Differential panel - BloodOR[facility] Work Phone: cBC W Auto Differential panel - BloodOR[facility] SECSV[facility] Work Phone: continuous pulse oximetryBON [facility] Work Phone: End: 64-84-3212USVHE-19COVID-19 Lab Routine Once for 1 Occurrences starting 02/17/2020 until 02/17/2020[facility]- [place], [place]Comment on above:Once for 1 Occurrences starting 02/17/2020 until 02/17/2020 End: 21-34-0980Gcpoxippjg [Mass/volume] in Serum or PlasmaBON [employer] Work Phone: culture, Anaerobic and AerobicBON [facility] Work Phone: End: 73-89-7902Sppmymq, Blood 1[facility] Phone: Comment on above:One Time for 1 Occurrences starting 06/28/2021 until 2Culture, Blood 1BON [employer] Phone: culture, Blood 1BON [employer] Phone: culture, Blood 1BON [employer] Phone: Culture,BacterialCulture,Bacterial Routine 03/14/2017 9:30 AM ESTOhioP&R [facility] Work Phone: Glucose [Mass/volume] in Serum or PlasmaOR[facility] [employer] Phone: Glucose [Mass/volume] in Serum or PlasmaOR[facility] [employer] Phone: End: 14-92-3430Ipuczqq [Mass/volume] in Serum or PlasmaOR[facility]LEY [facility] [employer] Phone: End: 77-10-5205Bhfcfswm RT Adult Mechanical Ventilation ProtocolORO VALLEY HOSPITAL [employer] Phone: Mechanical Ventilation with default initial settings [facility] [employer] Phone: Oxygen therapy [Minimum Data Set][facility] [employer] Phone: Oxygen therapy [Minimum Data Set]ARASELI [employer] Phone: End: 06-01-9149GPSEKUET SPECIMENPITTSFIELD GENERAL HOSPITALCompare And Share Phone: End: 98-92-9184VFMBHIWV SPECIMENORO VALLEY HOSPITAL [employer] Phone: End: 40-53-1933WKUSBSVH SPECIMENPITTSFIELD GENERAL HOSPITALCompare And Share Phone: End: 61-85-8435YEVIMDNF SPECIMENPITTSFIELD GENERAL HOSPITALCompare And Share Phone: Respiratory Care Evaluation and TreatORO VALLEY HOSPITAL [employer] Phone: End: 50-48-1056NKW clinical swallow evaluationRIVERSIDE DOCTORS' [facility] Work Phone: End: 55-91-9213Bbnjow and language therapy regimeRIVERSIDE DOCTORS' HOS[facility] Work Phone: spontaneous Breathing Trial (SBT)[facility] Work Phone: End: 04-23-9922Neocv ostomy eval and treatRIVERSIDE DOCTORS' HOSPITAL [facility] Work Phone: Immunizations Immunization DateImmunizationNotesCare BqrgwquqHpyhfsvv65-93-4505azboeeael virus vaccine, unspecified formulationJef Sierra Jr., DPM Work Phone: [phone]jvqef11-49-7006mvscvuwfjfbw vaccine, unspecified formulationJef Sierra Jr., DPM Work Phone: [phone]plxxe48-45-5678cmqqhxjzb virus vaccine, whole virusFranck Mtz MD Work Phone: osu [facility] HospitalYtirix65-50-8733xodoipnmg, seasonal, injectableFranck Mtz MD Work Phone: V [facility] HospitalXhihvj39-44-5711xxvbyx vaccine, liveFranck Mtz MD Work Phone: osu [facility] HospitalJfwuic32-37-4608jgyrcpioh virus vaccine, unspecified formulationTodd [facility] Work Phone: [phone]nsf vaccine, unspecified formulation Franck Mtz MD Work Phone: L [facility] HospitalRmrbau42-45-6192folxeuyxzdfw polysaccharide vaccine, 23 valentFranck Mtz MD Work Phone: X [facility] Payers DatePayer CategoryPayerPolicy ID2023MedicaidMEDICAID [place] [id number] [id number] [id number] 2003Medicarexxxxxxxxxx [id number] 2003Medicare [id number] [id number] 1.2.840.953178.1.13.385.2.7.3.106558.97948-42-1762Jksvnekqvm (not Medicare or Medicaid)[facility] 1.2.840.243702.1.13.693.2.7.9.786850.236392.82856-19-7860Gqrxhqbzslsebnjc 2.16.840.1.263493.3.249.2898-83-0110Mpafhmkcnafe4665 1.2.840.711408.1.13.385.2.7.3.666185.98555-93-8412Ngdtebt 1.2.840.025999.1.13.385.2.7.3.246159.54021-61-3042Dlwooxv75072361 2.16.840.1.081885.3.579.2.16379-25-9771Nusmyxp7607915 2.16.840.1.980565.3.579.2.59776-47-3670Iqspsfi2899308 2.16.840.1.176736.3.579.2.24868-17-0990Hhovsre572980853 2..840.1.102427.3.579.2.94863-38-4076Rnaqcvm641433801 2..840.1.921167.3.579.2.63935-35-9867Grelepe645665450 2..840.1.145113.3.579.2.84327-16-7545Vatqrnr617845567 2.16.840.1.369466.3.579.2.34111-26-0772Dyablcy931981377 2..840.1.734066.3.579.2.56610-89-1266Czgdeqd233080523 2..840.1.314293.3.579.2.46662-03-4850Hafxgqh008676046 2..840.1.113793.3.579.2.11772-06-8388Kcohhae160362438 2.16.840.1.583475.3.579.2.62428-39-3866Gwjsyqd283074097 2.16.840.1.935229.3.579.2.97033-42-7229Kbkwsxe758647831 2.16.840.1.412771.3.579.2.30610-83-9027Utqiktn741415878 2.16.840.1.912364.3.579.2.88759-14-0382Ihymogl132257516 2.16.840.1.147718.3.579.2.76521-27-3042Jrucmuk716567846 2.16.840.1.538166.3.579.2.15395-87-8469Kffxfas174675223 2.16.840.1.642418.3.579.2.31864-84-8212Ggxpksv283884591 2.16.840.1.296361.3.579.2.76364-80-7488Rowmlch104891370 2..840.1.292259.3.579.2.19002-26-2897Xgflagk600338084 2..840.1.290356.3.579.2.19280-91-0495Qtiwtde60613526 2.16.840.1.938351.3.579.2.321658-62-6341Ksngjji11981138 2..840.1.894289.3.579.2.844721-41-0335Iamyaab213143520 2.16.840.1.858416.3.579.2.65916-43-2265Vdshrky760390327 2.16.840.1.311396.3.579.2.01000-73-1927Nnktcap945837851 2.16.840.1.193016.3.579.2.24661-28-6267Gttknub74528009 2.16.840.1.819779.3.579.2.02160-28-9749Xuozcbk217810215 2.16.840.1.202387.3.579.2.59660-84-7608Qxzpmul231804982 2.16.840.1.362240.3.579.2.71557-40-3733Knjywrr732879985 2.16.840.1.934599.3.579.2.58784-04-1428Rvhmijx783282687 2.16.840.1.379240.3.579.2.71128-50-8572Bmoxtln795409869 2.16.840.1.130798.3.579.2.62511-42-8267Inieovy495253480 2.16.840.1.033004.3.579.2.48984-57-3370Ksgmane087359377 2.16.840.1.968837.3.579.2.10797-75-1932Gwxanmw197486366 2.16.840.1.987974.3.579.2.14747-23-5755Xjdptmq367345341 2.16.840.1.493285.3.579.2.76932-79-4030Asrepaw112663462 2.16.840.1.789040.3.579.2.62774-85-3511Pejnthc064888635 2.16.840.1.818453.3.579.2.62200-20-1636Mmddvrh111959333 2.16.840.1.741964.3.579.2.92595-26-0387Ldcsmvs684532826 2.16.840.1.752009.3.579.2.18764-80-9737Nuusppu790254845 2.16.840.1.514293.3.579.2.94928-51-0689Upyjutb136587952 2.16.840.1.279812.3.579.2.18179-61-4985Nnagwsb222688748 2.16.840.1.376628.3.579.2.26960-91-3962Kyeokje842883557 2.16.840.1.684769.3.579.2.93566-44-3465Tutawlc765169849 2.16.840.1.892953.3.579.2.40591-51-6855Uyiqpge647038949 2.16.840.1.826019.3.579.2.31276-71-8129Isyitzk093778810 2.16.840.1.215658.3.579.2.93213-90-4089Kkroqfd925122624 2.16.840.1.522858.3.579.2.98443-66-4121Qdeelno937277421 2..840.1.639176.3.579.2.73152-05-3353Avlewee640258115 2.840.1.082404.3.579.2.02904-13-7665Opazlvw30233284 2.840.1.803046.3.579.2.45640-37-8428Wfjgchj347654441 2.840.1.010233.3.579.2.38989-91-8362Gwsislu424051756 2.840.1.223992.3.579.2.89955-79-6420Gnxxxgz08822011 2.840.1.988879.3.579.2.52735-04-8665Bafuuyz48095279 2.840.1.706555.3.579.2.07661-49-1240Gnsuxos65025345 2.840.1.577035.3.579.2.89046-84-1017Llujczb58367558 2.16840.1.165174.3.579.2.98148-90-9206Cynfjle64353423 2.840.1.231316.3.579.2.31330-95-4056Zctefol27123292 2.16.840.1.239286.3.579.2.933565-07-1885Eapfdnj84910667 2.16.840.1.885596.3.579.2.055104-88-3688Oopwqeu9683731 2.16.840.1.149345.3.579.2.1259 [id number] 1962Unknown [id number] 2.16.840.[id number] 2.16.840.1.319308.3.249.67Pzueeaf410075219Xuluypw55859749 2.16.840.1.167693.3.579.2.531 Social History DateTypeDetailFacilityStart: 04-07-2017 End: 78-85-7959Spktqba smoking status NHISFormer smokerOhioHealth End: 05-45-0295Bzusnwp of tobacco useCurrent smokerOhioHealthStart: 1965 Sex Assigned At BirthNot on fileOhioHealth Work Phone: Start: 03-15-2017 End: 21-53-1570Krwpgvu smoking status NHISUnknown if ever smokedNONY Healthcare End: 94-06-5225Pqyhyhc of tobacco useCigarette SmokerDiley Ridge Medical Center's [facility] Work Phone: Start: 77-27-2072Achketv Commentdoesn't remember how much she smokedOhioHealthStart: 57-14-8636Glzjgrt CommentrarelyOhioHealthStart: 12-20-2019 End: 84-10-7778Pqhiykc use and exposureNever usedOhioHealthStart: 12-20-2019 End: 63-13-3994Ydedvjq intakeCurrent drinker of alcohol (finding)[facility] Start: 04-07-2021 End: 20-13-7635Bwykrxwc to SARS-CoV-2 (event)Not sureOhioHealthStart: 10-05-2017 End: 69-87-1078Rqhctlk intakeCurrent non-drinker of alcohol (finding)[facility] [place]Start: 55-49-5770Iyq [facility]igned At [facility], Cancer CenterGender identityNot on [facility] CenterStart: 26-15-8864Lov [facility] Medical Equipment Procedure CodeEquipment CodeEquipment Original TextEquipment IdentifierDates1 strip by Unknown route 3 times daily (take before meals).[id number]: 10-13-2017 End: 01-88-0721Xlvc Au00t0 D 23.5 - [id number]: 79-87-6617Vmp Tissue [place] [id number]: 95-30-3225Mzxoypj Opth 250sq Mm Jo 1 Qdrnt Ins Fx Sut Hl Rcs Knt Cpb - [id number]: 02-23-2020 [id number]_impStart: 10-50-9533Isz Screw Spinal M6 - [id number]_fuiLcdxg: 09-25-2021 Clinical Notes 09-13-2020 to 12-07-2024 Note Date & NsqgVvzvEtcaibtp82-09-4019 Telephone encounter Note* Telephone Encounter - Jay Chávez NP - 12/07/2024 11:53 AM EDT Requested Prescriptions Signed Prescriptions Disp Refills DULoxetine (Cymbalta) [address] capsule 30 capsule 11 Sig: Take 1 capsule (60 mg) by mouth Daily Authorizing Provider: JAY CHÁVEZ calcium carbonate (Tums Ultra) 1000 MG chewable tablet 30 tablet 11 Sig: Chew 1 tablet (1,000 mg) at bedtime Authorizing Provider: JAY CHÁVEZ [facility] CareBiklnohiii01-81-3877 Miscellaneous Notes* Telephone Encounter - Jay Chávez NP - 12/07/2024 11:53 AM EDT Requested Prescriptions Signed Prescriptions Disp Refills DULoxetine (Cymbalta) [address] capsule 30 capsule 11 Sig: Take 1 capsule (60 mg) by mouth Daily Authorizing Provider: JAY CHÁVEZ calcium carbonate (Tums Ultra) 1000 MG chewable tablet 30 tablet 11 Sig: Chew 1 tablet (1,000 mg) at bedtime Authorizing Provider: JAY CHÁVEZ [facility] Telephone encounter Note* Telephone Encounter - Jay Chávez NP - 11/30/2024 2:04 PM EDT Requested Prescriptions Signed Prescriptions Disp Refills guaiFENesin (Mucinex) 600 MG 12 hr tablet 120 tablet 11 Sig: Take 2 tablets (1,200 mg) by mouth in the morning and 2 tablets (1,200 mg) before bedtime. Do not crush, chew, or split. Authorizing Provider: JAY CHÁVEZ Multiple Vitamins-Minerals (multivitamin with minerals) tablet 30 tablet 11 Sig: Take 1 tablet by mouth Daily Authorizing Provider: JAY CHÁVEZ patient. [facility] CareFsllqamjkk60-61-4455 Miscellaneous Notes* Telephone Encounter - Jay Chávez NP - 11/30/2024 2:04 PM EDT Requested Prescriptions Signed Prescriptions Disp Refills guaiFENesin (Mucinex) 600 MG 12 hr tablet 120 tablet 11 Sig: Take 2 tablets (1,200 mg) by mouth in the morning and 2 tablets (1,200 mg) before bedtime. Do not crush, chew, or split. Authorizing Provider: JAY CHÁVEZ Multiple Vitamins-Minerals (multivitamin with minerals) tablet 30 tablet 11 Sig: Take 1 tablet by mouth Daily Authorizing Provider: JAY CHÁVEZ [facility]. [facility] Telephone encounter Note* Telephone Encounter - Jay Chávez NP - 11/23/2024 6:57 PM EDT Requested Prescriptions Signed Prescriptions Disp Refills potassium chloride CR (K-Tab) 20 MEQ ER tablet 30 tablet 11 Sig: Take 1 tablet (20 mEq) by mouth Daily Do not crush, chew, or split. Authorizing Provider: JAY CHÁVEZ [place] [address]Owusrgbgbq01-65-6665 Miscellaneous Notes* Telephone Encounter - Jay Chávez NP - 11/23/2024 6:57 PM EDT Requested Prescriptions Signed Prescriptions Disp Refills potassium chloride CR (K-Tab) 20 MEQ ER tablet 30 tablet 11 Sig: Take 1 tablet (20 mEq) by mouth Daily Do not crush, chew, or split. Authorizing Provider: JAY CHÁVEZ [facility] Telephone encounter Note* Telephone Encounter - Mahin Bernal MD - 11/23/2024 9:35 AM EDT Needed refill of Potassium Chloride [facility] CareLsxkpzlhfv27-11-1024 Miscellaneous Notes* Telephone Encounter - Mahin Bernal MD - 11/23/2024 9:35 AM EDT Needed refill of Potassium Chloride [facility] Telephone encounter Note* Telephone Encounter - Jay Chávez NP - 11/22/2024 10:15 PM EDT Requested [...] chew, or split. Authorizing Provider: JAY CHÁVEZ [facility] CareEpckpuqqdn31-33-9492 Miscellaneous Notes* Telephone Encounter - Jay Chávez NP - 11/22/2024 10:15 PM EDT Requested [...] Authorizing Provider: JAY CHÁVEZ documented in this encounterUniversity of Missouri Health CareTfkbaehihy94-33-4431 NoteRight Eye Reliability was good. Progression has been stable. Foveal threshold was normal. Findings include superior arcuate defect, superior nasal step defect. Left Eye Reliability was good. Progression has been stable. Foveal threshold was normal. Findings include superior arcuate defect, superior nasal step defect, inferior nasal step defect.[facility] CareSonqxeudjr66-17-3207 History of Present illness Narrative* Skylar Whitfield DO - 09/27/2024 1:15 PM EDT Images from the [...] laser capsulotomy, they are to notify their instructor psychiatric aide promptly if they have a significant change in symptoms, such as flashes of light (photopsia), an increase in floaters, loss of visual field or decrease in visual acuity. Dry eyes - Dry Eyes OU -- Environmental changes to minimize dryness and exposure and the use of artificial tears were recommended. documented in this encounterUniversity of Missouri Health CareVsvxicsgca53-33-3953 History of Present illness Narrative* COY Hopper - 08/27/2024 10:30 AM EDT Follow-Up: Diagnosis: [...] Account Name: Marisa Jonas NPI: Ramona Campuzano [id number] Next Visit: prn for any new/changing lesions documented in this encounterUniversity of Missouri Health CareGkihuukjsh22-65-0607 History of Present illness Narrative* Skylar Whitfield, - 06/28/2024 2:15 PM EDT Images from the original note [...] laser capsulotomy, they are to notify their instructor psychiatric aide promptly if they have a significant change in symptoms, such as flashes of light (photopsia), an increase in floaters, loss of visual field or decrease in visual acuity. Dry eyes - Dry Eyes OU -- Environmental changes to minimize dryness and exposure and the use of artificial tears were recommended. documented in this encounterNOMS Nuojfhrpml39-30-7935 NoteED Patient Education Note Orthopedics Acute Back Pain, Adult Acute back pain is sudden and usually short-lived. It is often caused by an injury to the muscles and tissues in the back. The injury may result from: ??? A muscle, tendon, or ligament getting overstretched or torn. Ligaments are tissues that connectbones to each other. Lifting something improperly can cause a back strain. ??? Wear and tear (degeneration) of the spinal disks. Spinal disks are circular tissue that providecushioning between the bones of the spine (vertebrae). [...] Managing pain, stiffness, and swelling ??? Take xbsa-bwq-ooxogmn and prescription medicines only as told by [...] as told by your health care provider. Usethe heat source that your health care provider [...] to lean over. Keep your chin tucked in.Keep your neck drawn back, and keep your [...] day. ??? Do not sit, drive, or rolling down machine operator one place for more than 30 minutes [...] care provider. Exercising helps your back heal fasterand helps prevent back injuries by keeping muscles strong and flexible. ??? Work with a physical therapist to make a safe exercise program, as recommended by your health care provider. Do any exercises as told by your physical therapist. Lifestyle ??? Maintain a healthy weight. Extra weight puts stress on your back and makes it difficult to havegood posture. ??? Avoid activities or situations that [...] control problems. ??? Y (more content not included)...[facility]07-07-2022 Note MR#: [id number] I [facility] Pt. Name: Meg Georges Admitted: 08/19/2021 [...] PEG tube. The patient recently was at [facility] in June for complaint of MSSA septicemia. She was trached at that time. She also was found to have an epidural phlegmon, which was causing compression on the cervicomedullary junction. She was given 6 weeks course of antibiotics for osteomyelitis. She had surgery at [facility] postoperatively here after the packing was removed from her nares as she was found to have leaking from her nares. She had a CT facial and brain, which showed a possible CSF leak. Decision was made by our Neurosurgery team and our SICU team to transfer her back to her surgeon since . She was accepted and transferred back to the ICU at [facility]. The patient was discharged in stable condition. Electronically Signed by: Jerry Pozo MD 08/23/2021 11:13 A Jerry Pozo MD I have reviewed this discharge summary and confirmed the resident's documentation. Please note that there may be additional documentation from me. Date Dict: 08/22/2021/05:19 P/Mai Grier, GROMMET WORKER Date Trans: 08/23/2021 07:42 A/genaro DN_JN:[id number] cc: Johny Beckman M.D. [address] [place], [place] [address]jack. Emergency Medicine [facility] [address] Neri Santa D.O. [address] [facility] [address]ZkfA[facility]06[facility] History of Present illness Narrative* Ja Daniels RCP - 08/10/2021 5:50 PM EDT 08/10/21 1750 Surgical Airway (Trach) 07/30/21 Shiley Cuffed Placement Date/Time: 07/30/21 09 Placed By: In surgery;Licensed provider Placement Verified By: Direct visualization Surgical Airway Type: Tracheostomy Brand: Shiley Style: Cuffed Size (mm): 7 Status Secured Site Assessment Clean;Red;Other (comment) (redness and slight breakdown under phlange) Site Care Cleansed;Dried;Dressing applied Ties Assessment Dry;Intact;Secure Trach care completed at 1750 per coordination with RN removing C Collar. Breakdown noted under phlange. * Vanessa Raya RD, LD - 08/10/2021 1:44 PM EDT Comprehensive Nutrition Assessment Type and Reason for Visit: Reassess Nutrition Recommendations/Plan: Modify Tube Feeding- change to Diabetic Formula goal 45 mL/hr x total of 23 hrs/day (d/t holding TFfor synthroid). 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 Peptide Based TF continues at 50 mL/hr via NGT. Tolerating well per RN. Rectal tuberemains in place. Labs reviewed: Glu 133-218 mg/dL, K 3.3 mmol/L. Meds include: Lantus, Humalog SS,Synthroid, Culterelle, Imodium PRN, KCl PRN. Nutrition Related [...] Anthropometric Measures: Height: 5' 5 (165.1 cm) [place] Body Weight (IBW): 125 lbs (57 kg) [...] function as evidenced by NPO or clear liquidstatus due to medical condition (need for enteral [...] to determine VANESSA RAYA RD, [place] Contact: * Seth Stokes MD - 08/10/2021 11:38 AM EDT Images from the original note were not included. [facility] -Progress Note Today's Date and [...] of C2 fx noted Infection Control Recommendations Portal Precautions Isolate for Covid until 07-23-21 Antimicrobial [...] related to arthritis or osteomyelitis by CT cervicalspine of 06-29-21. Patient suffers from immunosuppression from [...] through 08-20-21. Patient was transferred back to [facility] on 07-14-21 because of a [...] C2 RHIZOTOMY, EXPLORATION OF EPIDURAL PHLEGMON performed byAlisia Cevallos DO at [facility] OR CHOLECYSTECTOMY EYE SURGERY [address] shunt for open angle glaucoma. MRI compatible- device is all silicone LAMINECTOMY 07/06/2021 Posterior C1, LEFT C2 RHIZOTOMY, EXPLORATION OF EPIDURAL PHLEGMON PICC INSERTION VASCULAR ACCESS TEAM 07/10/2021 SHOULDER SURGERY right TRACHEOSTOMY 07/30/2021 TRACHEOSTOMY N/A 07/30/2021 TRACHEOTOMY performed by Erica Santiago MD at [facility] OR UPPER GASTROINTESTINAL ENDOSCOPY N/A 07/02/2021 EGD ESOPHAGOGASTRODUODENOSCOPY performed by Hari Wagner MD at [facility] Endoscopy Medications: insulin glargine 10 Units [...] Friends and Family: Not on file Attends Islam Services: Not on file Active Member of [...] K 3.8 3.3* CL 108* 107 CO2 24 BUN 11 11 CREATININE 0.59 0.54 [...] extension (from neutral), as above. Medical Decision Exavuo-Tmdnozmi-Eynpf: SARS-CoV-2, Rapid COVID-19, Rapid Collected: 07/13/21 7281 Result status: Final [facility] Reference range: Not Detected Value: DETECTED [...] this assay. Fact sheet for Healthcare Providers: https://www.fda.gov/media/965129/download Fact sheet for Patients: https://www.fda.gov/media/602890/download Methodology: Isothermal Nucleic Acid Amplification Culture, Respiratory Order: [id number] Status: Final result Visible to patient: No (not released) Next appt: Today at 02:30 PM in Radiology (STV MRI RM 1 (1.5T)) Specimen Information: Sputum Aspirated 0 Result Notes Component 07/24/21 6695 Specimen Description .ASPIRATED SPUTUM Direct Exam < 10 EPITHELIAL CELLS/LPF Direct Exam >25 NEUTROPHILS/LPF Direct Exam MANY GRAM NEGATIVE RODS Abnormal Culture KLEBSIELLA AEROGENES HEAVY GROWTH Abnormal Culture NO NORMAL ROB Resulting Agency [facility] Susceptibility Klebsiella aerogenes (1) Antibiotic [...] Please call with questions. Seth Stokes MD * Guy Ochoa MD - 08/10/2021 7:54 AM EDT Critical Care Team - Daily Progress Note Date and time: 08/10/2021 7:54 AM Patient's name: Meg Georges Patient's account/billing number: [id number] Patient's Date of : 1965 Age: 56 [...] patient was sent to the ED in [facility] from outpatient infusion center whereshe had been getting 2 units of PRBC and potassium. During the infusion her blood pressure increased to 180s with a headache. Initial labs in the ED noted WBC 8, potassium 2.2, normal LFTs. Magnesium1.5. Patient was found to be COVID-positive with superimposed lower left lobe pneumonia. Started onZosyn 3.3 g. Transferred to our hospital on July 14, 2021. Patient received dexamethasone on July 14 and July 15. Patient was given that bebtelovimab infusion on July 15. Cefazolin 07/16-07/18. Nafcillin 1000mg 07/16, increased to 2000 mg on July 18. Cervical phlegmon culture no growth. May have concern for osteomyelitis in the bone. Blood culturesnegative to date. Patient was set to be [...] Date 08/10/21 0000 - 08/10/21 2359 Shift [id number] [id number] 24 Hour Total INTAKE I.V.(mL/kg) 169(2.9) 169(2.9) [...] mcg/kg/hr (08/10/21746) sodium chloride 10 mL/hr at 08/10/2147 dextrose 75 mL/hr (08/06/211956) PRN Meds: fentanNYL, [...] Results Component Value Date PHART 7.406 07/06/2021 CYU7QRR 34.8 07/06/2021 PO2ART 279.0 07/06/2021 EIG8TJN 21.4 07/06/2021 [id number] 99.4 07/06/2021 FIO2 30.0 08/05/2021 Lactic Acid: [...] No results for input(s): LABIRON, TIBC, FERRITIN, ATMZVGNA70, FOLATE, OCCULTBLD in the last 72 hours. 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 Please note that this chart was generated using voice recognition Suja Juiceon dictation software. Although every effort was made to ensure the accuracy of this automated brownfield redevelopment site manager, some errors in brownfield redevelopment site manager may have occurred. * Leeann Smith RN - 08/09/2021 6:22 PM EDT PALLIATIVE CARE NURSING ASSESSMENT Patient: Meg Georges Room: 3024/3024- Reason For Consult Goals of care evaluation Distress management Guidance and support Facilitate communications Assistance in coordinating care Code Status: Full Code Summary: Pt visit, stable on cpap trial. Awaiting placement to [facility]. Spoke with COURTNEY Santamaria 08/10/21. I gave her suggestions on how to locate Living Will/ Will information. Discussed code classifications again. She confirms understanding and thinks her sister would want to remain full code. Acknowledged and supported Hina in this decision as well as moving forward with transfer to [facility]. Encouraged her to call as needed. Impression: Meg Georges is a 56 y.o. 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 Palliative Care will not attempt towaken or communicate with patient since patient becomes restless with stimulation. VS. Stable. Notes relate plan for transfer to LTACH soon, recommend completion of full course of antibiotic therapy for osteomyelitis through 08/15/21. Plan for C1/2 fusion elective surgery tentatively 08/22/21. 08/10/21: Reviewed chart and called sister Hina. Confirmed that Hina is updated on situation. [facility] She was told her [...] system either. Hina relates she has copy ofDPOAH and looked through it and does not see a living will portion. I told her that sometimes it isfilled out together but sometimes only DPOAH gets filled out. It is possible that she only receivedcopy of DPOAH and not living will. Hina relates patient filled out DPOAH at [facility] in [place]. I suggested that she continue to try to contact Meg's derrick operator but that she could contact [facility] and see if they have Living will documents on fill. Let Hina know that I wish her and Meg well moving forward and they can contact us in the future if we can help with anything. Will continueto follow until discharge. Goals/Plan of care Education/support [...] thinks that her sister would want to beFull Code. Supported sister in this, discussed transfer to [facility] soon as bed is available. Wishedpatient and family well moving forward. Tailercpa Leeann UREÑA, RN, ONN-CG [place] Office: [phone] [place] Office: [phone] [facility] Office: [phone] For Symptom Management Clinic scheduling please call [phone] * Seth Stokes MD - 08/09/2021 10:52 AM EDT Images from the original note were not included. [facility] -Progress Note Today's Date and [...] of C2 fx noted Infection Control Recommendations Portal Precautions Isolate for Covid until 07-23-21 Antimicrobial [...] related to arthritis or osteomyelitis by CT cervicalspine of 06-29-21. Patient suffers from immunosuppression from [...] through 08-20-21. Patient was transferred back to [facility] on 07-14-21 because of a [...] C2 RHIZOTOMY, EXPLORATION OF EPIDURAL PHLEGMON performed byAlisia Cevallos DO at [facility] OR CHOLECYSTECTOMY EYE SURGERY [address] shunt for open angle glaucoma. MRI compatible- device is all silicone LAMINECTOMY 07/06/2021 Posterior C1, LEFT C2 RHIZOTOMY, EXPLORATION OF EPIDURAL PHLEGMON PICC INSERTION VASCULAR ACCESS TEAM 07/10/2021 SHOULDER SURGERY right TRACHEOSTOMY 07/30/2021 TRACHEOSTOMY N/A 07/30/2021 TRACHEOTOMY performed by Erica Santiago MD at [facility] OR UPPER GASTROINTESTINAL ENDOSCOPY N/A 07/02/2021 EGD ESOPHAGOGASTRODUODENOSCOPY performed by Hari Wagner MD at [facility] Endoscopy Medications: QUEtiapine 25 mg Oral [...] Friends and Family: Not on file Attends Islam Services: Not on file Active Member of [...] extension (from neutral), as above. Medical Decision Oxochw-Oztddvmp-Gatmc: SARS-CoV-2, Rapid COVID-19, Rapid Collected: 07/13/21 5008 Result status: Final Resulting lab: [facility] Reference range: Not Detected Value: DETECTED [...] this assay. Fact sheet for Healthcare Providers: https://www.fda.gov/media/268230/download Fact sheet for Patients: https://www.fda.gov/media/488174/download Methodology: Isothermal Nucleic Acid Amplification Culture, Respiratory Order: [id number] Status: Final result Visible to patient: No (not released) Next appt: Today at 02:30 PM in Radiology (STV MRI RM 1 (1.5T)) Specimen Information: Sputum Aspirated 0 Result Notes Component 07/24/21 7891 Specimen Description .ASPIRATED SPUTUM Direct Exam < 10 EPITHELIAL CELLS/LPF Direct Exam >25 NEUTROPHILS/LPF Direct Exam MANY GRAM NEGATIVE RODS Abnormal Culture KLEBSIELLA AEROGENES HEAVY GROWTH Abnormal Culture NO NORMAL ROB Resulting Agency [facility] [place] Susceptibility Klebsiella aerogenes (1) Antibiotic [...] Please call with questions. Seth Stokes MD * Guy Ochoa MD - 08/09/2021 8:12 AM EDT Critical Care Team - Daily Progress Note Date and time: 08/09/2021 8:12 AM Patient's name: Meg Georges Patient's account/billing number: [id number] Patient's Date of : 1965 Age: 56 [...] patient was sent to the ED in [facility] from outpatient infusion center whereshe had been getting 2 units of PRBC and potassium. During the infusion her blood pressure increased to 180s with a headache. Initial labs in the ED noted WBC 8, potassium 2.2, normal LFTs. Magnesium1.5. Patient was found to be COVID-positive with superimposed lower left lobe pneumonia. Started onZosyn 3.3 g. Transferred to our hospital on July 14, 2021. Patient received dexamethasone on July 14 and July 15. Patient was given that bebtelovimab infusion on July 15. Cefazolin 07/16-07/18. Nafcillin 1000mg 07/16, increased to 2000 mg on July 18. Cervical phlegmon culture no growth. May have concern for osteomyelitis in the bone. Blood culturesnegative to date. Patient was set to be discharged this morning when she became unresponsive and rapid was called. Review of Systems Unable to perform OBJECTIVE: VITAL SIGNS: BP (!) 143/72 Pulse (!) 103 Temp 98.1 F (36.7 C) Resp 24 Ht 5' 5 (1.651 m) Wt 130 lb 8.2oz (59.2 kg) LMP 12/02/2011 SpO2 100% BMI [...] Date 08/09/21 0000 - 08/09/21 2359 Shift [id number] 0055-6368 0310-8698 24 Hour Total INTAKE I.V.(mL/kg) 191(3.2) 191(3.2) [...] Air VENT SETTINGS (Comprehensive) (if applicable): PS/CPAP / Lab Results Component Value Date PHART 7.406 07/06/2021 JSQ3UIC 34.8 07/06/2021 PO2ART 279.0 07/06/2021 CFA0KDV 21.4 07/06/2021 Q1ROICED 99.4 07/06/2021 FIO2 30.0 08/05/2021 Lactic Acid: [...] No results for input(s): LABIRON, TIBC, FERRITIN, THWNFVGF81, FOLATE, OCCULTBLD in the last 72 hours. 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 Please note that this chart was generated using voice recognition [employer] dictation software. Although every effort was made to ensure the accuracy of this automated brownfield redevelopment site manager, some errors in brownfield redevelopment site manager may have occurred. * Juliette Childress PT - 08/08/2021 4:02 PM EDT Physical Therapy Facility/Department: [facility] Physical Therapy Initial Assessment Name: Meg [...] patient was sent to the ED in [facility] from outpatient infusion center whereshe had been getting 2 units of PRBC and potassium. During the infusion her blood pressure increased to 180s with a headache. Initial labs in the ED noted WBC 8, potassium 2.2, normal LFTs. Magnesium1.5. Patient was found to be COVID-positive with superimposed lower left lobe pneumonia. Started onZosyn 3.3 g. Transferred to our hospital on July 14, 2021. Patient received dexamethasone on July 14 and July 15. Patient was given that bebtelovimab infusion on July 15. Cefazolin 07/16-07/18. Nafcillin 1000mg 07/16, increased to 2000 mg on July 18. Cervical phlegmon culture no growth. May have concern for osteomyelitis in the bone. Blood culturesnegative to date. Patient was set to be discharged this morning when she became unresponsive and rapid was called. Discharge Recommendations: Will continue to assess pending progress PT Equipment Recommendations Other: TBD Patient Diagnosis(es): There were no encounter diagnoses. 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 Past Surgical History: has a past surgical history that includes Cholecystectomy; shoulder surgery;Achilles tendon surgery; back surgery; Upper gastrointestinal endoscopy [...] Commands: Impaired Other (Comment): intermittant, appeared to youth director R hand to commands, appeared to try [...] Stair Climbing Raw Score : 6 (08/08/21 1601) AM-PAC Inpatient without Stair Climbing T-Scale Score [...] Treatment Minutes: 15 Minutes Juliette Childress PT * Seth Stokes MD - 08/08/2021 9:24 AM EDT Images from the original note were not included. [facility] -Progress Note Today's Date and [...] of C2 fx noted Infection Control Recommendations Portal Precautions Isolate for Covid until 07-23-21 Antimicrobial [...] related to arthritis or osteomyelitis by CT cervicalspine of 06-29-21. Patient suffers from immunosuppression from [...] through 08-20-21. Patient was transferred back to [facility] on 07-14-21 because of a [...] C2 RHIZOTOMY, EXPLORATION OF EPIDURAL PHLEGMON performed byAlisia Cevallos DO at [facility] OR CHOLECYSTECTOMY EYE SURGERY [address] shunt for open angle glaucoma. MRI compatible- device is all silicone LAMINECTOMY 07/06/2021 Posterior C1, LEFT C2 RHIZOTOMY, EXPLORATION OF EPIDURAL PHLEGMON PICC INSERTION VASCULAR ACCESS TEAM 07/10/2021 SHOULDER SURGERY right TRACHEOSTOMY 07/30/2021 TRACHEOSTOMY N/A 07/30/2021 TRACHEOTOMY performed by Erica Santiago MD at [facility] OR UPPER GASTROINTESTINAL ENDOSCOPY N/A 07/02/2021 EGD ESOPHAGOGASTRODUODENOSCOPY performed by Hari Wagner MD at [facility] Endoscopy Medications: QUEtiapine 50 mg Oral [...] Friends and Family: Not on file Attends Islam Services: Not on file Active Member of [...] extension (from neutral), as above. Medical Decision Hkovsu-Mpogbika-Htfki: SARS-CoV-2, Rapid COVID-19, Rapid Collected: 07/13/21 3572 Result status: Final Resulting lab: [facility] Reference range: Not Detected Value: [...] this assay. Fact sheet for Healthcare Providers: https://www.fda.gov/media/805680/download Fact sheet for Patients: https://www.fda.gov/media/408065/download Methodology: Isothermal Nucleic Acid Amplification Culture, Respiratory Order: [id number] Status: Final result Visible to patient: No (not released) Next appt: Today at 02:30 PM in Radiology (STV MRI RM 1 (1.5T)) Specimen Information: Sputum Aspirated 0 Result Notes Component 07/24/21 7647 Specimen Description .ASPIRATED SPUTUM Direct Exam < 10 EPITHELIAL CELLS/LPF Direct Exam >25 NEUTROPHILS/LPF Direct Exam MANY GRAM NEGATIVE RODS Abnormal Culture KLEBSIELLA AEROGENES HEAVY GROWTH Abnormal Culture NO NORMAL ROB Resulting Agency [facility] Susceptibility Klebsiella aerogenes (1) Antibiotic Interpretation Microscan [...] patient. Please call with questions. Jany Francis, 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 ATTESTATION: I have discussed the case, including pertinent history and exam findings with the EXPERIMENTAL ROCKET SLED MECHANIC. I have evaluated the History, physical findings and pictures of the patient and the coffey elements of the encounter have been performed by me. I have reviewed the laboratory data, other diagnostic studies and discussed them with the EXPERIMENTAL ROCKET SLED MECHANIC. I have updated the medical record where necessary. I agree with the assessment, plan and orders as documented by the EXPERIMENTAL ROCKET SLED MECHANIC. Seth Stokes MD. * Guy Ochoa MD - 08/08/2021 7:18 AM EDT Critical Care Team - Daily Progress Note Date and time: 08/08/2021 7:18 AM Patient's name: Meg Georges Patient's account/billing number: [id number] Patient's Date of : 1965 Age: 56 y.o. Date of Admission: 07/14/2021 4:12 PM Length of stay during current admission: 25 Primary Care Physician: Neri Santa Sr, ICU Attending Physician: Dr. Willoughby Code Status: Full Code Reason for ICU admission: No chief complaint on file. covid -19 SUBJECTIVE: OVERNIGHT EVENTS: Flex/Ex yesterday supervised by neurosurgery; more displacement of C2 fx; NS recommends full courseof osteomyelitis antibioitc regimen. Otherwise no acute overnight [...] patient was sent to the ED in [facility] from outpatient infusion center whereshe had been getting 2 units of PRBC and potassium. During the infusion her blood pressure increased to 180s with a headache. Initial labs in the ED noted WBC 8, potassium 2.2, normal LFTs. Magnesium1.5. Patient was found to be COVID-positive with superimposed lower left lobe pneumonia. Started onZosyn 3.3 g. Transferred to our hospital on July 14, 2021. Patient received dexamethasone on July 14 and July 15. Patient was given that bebtelovimab infusion on July 15. Cefazolin 07/16-07/18. Nafcillin 1000mg 07/16, increased to 2000 mg on July 18. Cervical phlegmon culture no growth. May have concern for osteomyelitis in the bone. Blood culturesnegative to date. Patient was set to be [...] Date 08/08/21 0000 - 08/08/21 2359 Shift [id number] [id number] [id number] 24 Hour Total INTAKE I.V.(mL/kg) 196.4(3.3) 196.4(3.3) [...] Humidification Source: HME Cuff Pressure (cm H2O): (ultrasonic seaming machine operator) Skin Barrier Applied: (Mepilex placed after trach change) Lab Results Component Value Date PHART 7.406 07/06/2021 TTW1JPH 34.8 07/06/2021 PO2ART 279.0 07/06/2021 IHA8AIT 21.4 07/06/2021 D1DMBZRV 99.4 07/06/2021 FIO2 30.0 08/05/2021 Lactic Acid: [...] No results for input(s): LABIRON, TIBC, FERRITIN, EWTTESHS05, FOLATE, OCCULTBLD in the last 72 hours. 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 Please note that this chart was generated using voice recognition Suja Juice[employer] dictation software. Although every effort was made to ensure the accuracy of this automated brownfield redevelopment site manager, some errors in brownfield redevelopment site manager may have occurred. * Alisia Cevallos DO - 08/07/2021 7:24 PM EDT Neurosurgery attending Supervised passive flexion extension and neurtral latera xray done in xray department There is no gross movement of C1/2 junction as patient is quite stiff even with ativan and like to maintain some extension. There is however more displacement of C2 pathologic fracture compared to previous xray and possiblemore compared to C2. This is not surprising [...] for C1/2 fusion tentatively on 08/22 X.Vaishali Cevallos DO Neurosurgeon * Millie Monk RCP - 08/07/2021 5:29 PM EDT 08/07/21 1729 Patient Transport Time Spent Transporting [...] tolerated well. MILLIE MONK RCP 5:34 PM * Vanessa Raya RD, LD - 08/07/2021 4:17 PM EDT Comprehensive Nutrition Assessment Type and Reason for [...] Anthropometric Measures: Height: 5' 5 (165.1 cm) [place] Body Weight (IBW): 125 lbs (57 kg) [...] function as evidenced by NPO or clear liquidstatus due to medical condition, need for enteral [...] to determine VANESSA RAYA RD, [place] Contact: * Leeann Smith RN - 08/07/2021 4:16 PM EDT PALLIATIVE CARE NURSING ASSESSMENT Patient: Meg Georges Room: [facility] Reason For Consult Goals of care evaluation Distress management Guidance and support Facilitate communications Assistance in coordinating care Code Status: Full Code Impression: Meg Georges is a 56 y.o. 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 Patient Active Problem List Diagnosis Cellulitis of left finger Altered mental state Encephalitis Encephalopathy CIDP (chronic inflammatory demyelinating polyneuropathy) ([facility]) Sepsis ([facility]) Bacteremia Hypothyroidism Hypokalemia Type 2 diabetes mellitus with diabetic polyneuropathy ([facility]) Primary hypertension Upper GI bleed Non-intractable vomiting Unintentional weight loss Metabolic encephalopathy MSSA (methicillin susceptible Staphylococcus aureus) septicemia ([facility]) CRP elevated Bandemia Allergy to multiple antibiotics Pyogenic inflammation of bone ([facility]) Acute intractable headache Septic arthritis of cervical spine ([facility]) 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 [...] on 07/19/21. Speech therapy suggested npo with tubefeedings. Ng in place awaiting peg placement. Called and spoke with Hina. I called and introduced myself and my role in palliative care. Offeredsupport and acknowledged how difficult this must be for her having her sister in the hospital. We discussed her supports she relates she has a and two sons. Confirmed that she had received updates earlier today. She relates she gave permission for feeding tube for Meg. I let her know thatI do not know when the feeding tube will be placed, but that Meg was going to have the additionalxrays done this afternoon that the neurosurgeon had requested. Explained we should have updates forher tomorrow. Asked if I could assist her with anything. Hina denies needs at present. She is appreciate of call. I gave her my name and office phone number and encouraged her to call if we can be of assistance. I let her know that I will be rounding at [facility] all week. Goals/Plan of care Education/support to [...] to call us as needed. Update given. Tailercpa Leeann UREÑA, RN, ONN-CG [place] Office: [phone] [place] Office: [phone] [facility] Office: [phone] For Symptom Management Clinic scheduling please call [phone] * Seth Stokes MD - 08/07/2021 10:19 AM EDT Images from the original note were not included. [facility] -Progress Note Today's Date and [...] and open mouth odontoid view prior to surgicalintervention. Infection Control Recommendations Portal Precautions Isolate for Covid until 07-23-21 Antimicrobial [...] related to arthritis or osteomyelitis by CT cervicalspine of 06-29-21. Patient suffers from immunosuppression from [...] through 08-20-21. Patient was transferred back to [facility] on 07-14-21 because of a [...] C2 RHIZOTOMY, EXPLORATION OF EPIDURAL PHLEGMON performed byAlisia Cevallos DO at [facility] OR CHOLECYSTECTOMY EYE SURGERY [address] shunt for open angle glaucoma. MRI compatible- device is all silicone LAMINECTOMY 07/06/2021 Posterior C1, LEFT C2 RHIZOTOMY, EXPLORATION OF EPIDURAL PHLEGMON PICC INSERTION VASCULAR ACCESS TEAM 07/10/2021 SHOULDER SURGERY right TRACHEOSTOMY 07/30/2021 TRACHEOSTOMY N/A 07/30/2021 TRACHEOTOMY performed by Erica Santiago MD at [facility] OR UPPER GASTROINTESTINAL ENDOSCOPY N/A 07/02/2021 EGD ESOPHAGOGASTRODUODENOSCOPY performed by Hari Wagner MD at [facility] Endoscopy Medications: QUEtiapine 25 mg Oral [...] Friends and Family: Not on file Attends Islam Services: Not on file Active Member of [...] Decision Making-Imaging: No new imaging Medical Decision Rwuycz-Dvimypvn-Shlbf: SARS-CoV-2, Rapid COVID-19, Rapid Collected: 07/13/21 9859 Result status: Final Resulting lab: [facility] Reference range: Not Detected Value: [...] this assay. Fact sheet for Healthcare Providers: https://www.fda.gov/media/905105/download Fact sheet for Patients: https://www.fda.gov/media/453765/download Methodology: Isothermal Nucleic Acid Amplification Culture, Respiratory Order: [id number] Status: Final result Visible to patient: No (not released) Next appt: Today at 02:30 PM in Radiology (STV MRI RM 1 (1.5T)) Specimen Information: Sputum Aspirated 0 Result Notes Component 07/24/21 9362 Specimen Description .ASPIRATED SPUTUM Direct Exam < 10 EPITHELIAL CELLS/LPF Direct Exam >25 NEUTROPHILS/LPF Direct Exam MANY GRAM NEGATIVE RODS Abnormal Culture KLEBSIELLA AEROGENES HEAVY GROWTH Abnormal Culture NO NORMAL ROB Resulting Agency [facility] [place] Susceptibility Klebsiella aerogenes (1) [...] Please call with questions. Seth Stokes MD * Guy Ochoa MD - 08/07/2021 7:58 AM EDT Critical Care Team - Daily Progress Note Date and time: 08/07/2021 7:58 AM Patient's name: Meg Georges Patient's account/billing number: [id number] Patient's Date of : 1965 Age: 56 [...] patient was sent to the ED in [facility] from outpatient infusion center whereshe had been getting 2 units of PRBC and potassium. During the infusion her blood pressure increased to 180s with a headache. Initial labs in the ED noted WBC 8, potassium 2.2, normal LFTs. Magnesium1.5. Patient was found to be COVID-positive with superimposed lower left lobe pneumonia. Started onZosyn 3.3 g. Transferred to our hospital on July 14, 2021. Patient received dexamethasone on July 14 and July 15. Patient was given that bebtelovimab infusion on July 15. Cefazolin 07/16-07/18. Nafcillin 1000mg 07/16, increased to 2000 mg on July 18. Cervical phlegmon culture no growth. May have concern for osteomyelitis in the bone. Blood culturesnegative to date. Patient was set to be [...] Date 08/07/21 0000 - 08/07/21 2359 Shift [id number] 4637-1512 4053-0699 24 Hour Total INTAKE I.V.(mL/kg) 382.5(6.4) 382.5(6.4) [...] Humidification Source: HME Cuff Pressure (cm H2O): (ultrasonic seaming machine operator) Skin Barrier Applied: (Mepilex placed after trach change) Lab Results Component Value Date PHART 7.406 07/06/2021 TCI8IAW 34.8 07/06/2021 PO2ART 279.0 07/06/2021 AQV7SSL 21.4 07/06/2021 B0KPRSPP 99.4 07/06/2021 FIO2 30.0 08/05/2021 Lactic Acid: [...] No results for input(s): LABIRON, TIBC, FERRITIN, XVIZAHVR37, FOLATE, OCCULTBLD in the last 72 hours. 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 Please note that this chart was generated using voice recognition Suja Juice[employer] dictation software. Although every effort was made to ensure the accuracy of this automated brownfield redevelopment site manager, some errors in brownfield redevelopment site manager may have occurred. * Kam Loera, 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 - 08/06/2021 4:50 PM EDT Neurosurgery NATE/Resident Daily Progress Note No chief [...] pathologic fracture compared to previous xray and possiblemore attenuated compared to C2. This is not [...] tentatively on 08/22 Beatriz Cevallos DO Neurosurgeon * Valery Quinteros MD - 08/06/2021 3:58 PM EDT [facility] Meg Georges is a 56 [...] No results for input(s): LABIRON, TIBC, FERRITIN, MGUEWNZH02, FOLATE, OCCULTBLD in the last 72 hours. [...] guided PEG placement, to remove collar and manipulatethe neck for flexion for endoscopy. Thank you for allowing me to participate in the care of your patient. Please feel free to contact me with any questions or concerns. Valery Quinteros PGY-1 Internal Medicine [place], [place] 3:59 PM 08/06/2021 Associated attestation - [...] with appropriate modifications. Leigh Mcintosh MD Gastroenterology [facility], [place], [place] * Seth Stokes MD - 08/06/2021 10:36 AM EDT Images from the original note were not included. [facility] -Progress Note Today's Date and [...] and open mouth odontoid view prior to surgicalintervention. Infection Control Recommendations Portal Precautions Isolate for Covid until 07-23-21 Antimicrobial [...] related to arthritis or osteomyelitis by CT cervicalspine of 06-29-21. Patient suffers from immunosuppression from [...] through 08-20-21. Patient was transferred back to [facility] on 07-14-21 because of a [...] C2 RHIZOTOMY, EXPLORATION OF EPIDURAL PHLEGMON performed byAlisia Cevallos DO at [facility] OR CHOLECYSTECTOMY EYE SURGERY [address] shunt for open angle glaucoma. MRI compatible- device is all silicone LAMINECTOMY 07/06/2021 Posterior C1, LEFT C2 RHIZOTOMY, EXPLORATION OF EPIDURAL PHLEGMON PICC INSERTION VASCULAR ACCESS TEAM 07/10/2021 SHOULDER SURGERY right TRACHEOSTOMY 07/30/2021 TRACHEOSTOMY N/A 07/30/2021 TRACHEOTOMY performed by Erica Santiago MD at [facility] OR UPPER GASTROINTESTINAL ENDOSCOPY N/A 07/02/2021 EGD ESOPHAGOGASTRODUODENOSCOPY performed by Hari Wagner MD at [facility] Endoscopy Medications: insulin glargine 15 Units [...] Friends and Family: Not on file Attends Islam Services: Not on file Active Member of [...] Decision Making-Imaging: No new imaging Medical Decision Yyvxmh-Zpzhltva-Ysgnj: SARS-CoV-2, Rapid COVID-19, Rapid Collected: 07/13/212306 Result status: Final Resulting lab: [facility] Reference range: Not Detected Value: [...] this assay. Fact sheet for Healthcare Providers: https://www.fda.gov/media/317924/download Fact sheet for Patients: https://www.fda.gov/media/862613/download Methodology: Isothermal Nucleic Acid Amplification Culture, Respiratory Order: [id number] Status: Final result Visible to patient: No [...] Abnormal Culture NO NORMAL ROB Resulting Agency [facility] [place] Susceptibility Klebsiella aerogenes (1) [...] patient. Please call with questions. Jany Francis, 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 ATTESTATION: I have discussed the case, including pertinent history and exam findings with the EXPERIMENTAL ROCKET SLED MECHANIC. I have evaluated the History, physical findings and pictures of the patient and the coffey elements of the encounter have been performed by me. I have reviewed the laboratory data, other diagnostic studies and discussed them with the EXPERIMENTAL ROCKET SLED MECHANIC. I have updated the medical record where necessary. I agree with the assessment, plan and orders as documented by the EXPERIMENTAL ROCKET SLED MECHANIC. Seth Stokes MD. * Guy Ochoa MD - 08/06/2021 7:27 AM EDT Critical Care Team - Daily Progress Note Date and time: 08/06/2021 7:27 AM Patient's name: Meg Georges Patient's account/billing number: [id number] Patient's Date of : 1965 Age: 56 [...] patient was sent to the ED in [facility] from outpatient infusion center whereshe had been getting 2 units of PRBC and potassium. During the infusion her blood pressure increased to 180s with a headache. Initial labs in the ED noted WBC 8, potassium 2.2, normal LFTs. Magnesium1.5. Patient was found to be COVID-positive with superimposed lower left lobe pneumonia. Started onZosyn 3.3 g. Transferred to our hospital on July 14, 2021. Patient received dexamethasone on July 14 and July 15. Patient was given that bebtelovimab infusion on July 15. Cefazolin /-07/18. Nafcillin 1000mg 07/16, increased to 2000 mg on July 18. Cervical phlegmon culture no growth. May have concern for osteomyelitis in the bone. Blood culturesnegative to date. Patient was set to be [...] Date 08/06/21 0000 - 08/06/21 2359 Shift [id number] 0831-9275 7496-0129 24 Hour Total INTAKE I.V.(mL/kg) 244.5(4) 244.5(4) [...] Results Component Value Date PHART 7.406 07/06/2021 CHM8REC 34.8 07/06/2021 PO2ART 279.0 07/06/2021 QEE2YJQ 21.4 07/06/2021 K7VLCBMU 99.4 07/06/2021 FIO2 30.0 08/05/2021 Lactic Acid: [...] the last 72 hours. AMYLASE/LIPASE/AMMONIA Recent Labs 08/04/21439 LIPASE 16 Last 3 Blood Glucose: Recent Labs 08/04/21 0440 08/05/21 0438 08/06/21 0344 GLUCOSE 195* 121* 48* HgBA1c: Lab Results Component Value Date LABA1C 9.4 06/28/2021 TSH: Lab Results Component Value Date TSH 2.06 07/24/2021 ANEMIA STUDIES No results for input(s): LABIRON, TIBC, FERRITIN, OUJAPIBW97, FOLATE, OCCULTBLD in the last 72 hours. 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 Please note that this chart was generated using voice recognition Suja Juiceon dictation software. Although every effort was made to ensure the accuracy of this automated brownfield redevelopment site manager, some errors in brownfield redevelopment site manager may have occurred. * Chelsea Seaman Sra, MD - 08/05/2021 1:52 PM EDT Images from the original note were not included. Critical Care Team - Daily Progress Note Date and time: 08/05/2021 1:52 PM Patient's name: Meg Georges Patient's account/billing number: [id number] Patient's Date of : 1965 Age: 56 [...] degree Ulcer prophylaxis: [] PPI Agent, [x] S8Upldg, [] Sucralfate, [] Other: Glycemic control: Controlled [...] patient was sent to the ED in [facility] from outpatient infusion center whereshe had been getting 2 units of PRBC and potassium. During the infusion her blood pressure increased to 180s with a headache. Initial labs in the ED noted WBC 8, potassium 2.2, normal LFTs. Magnesium1.5. Patient was found to be COVID-positive with superimposed lower left lobe pneumonia. Started onZosyn 3.3 g. Transferred to our hospital on July 14, 2021. Patient received dexamethasone on July 14 and July 15. Patient was given that bebtelovimab infusion on July 15. Cefazolin 07/16-07/18. Nafcillin 1000mg 07/16, increased to 2000 mg on July 18. Cervical phlegmon culture no growth. May have concern for osteomyelitis in the bone. Blood culturesnegative to date. Patient was set to be [...] Date 08/05/21 0000 - 08/05/21 2359 Shift [id number] 4337-5737 0483-1247 24 Hour Total INTAKE I.V.(mL/kg) 223.2(3.5) 86.6(1.4) [...] Results Component Value Date PHART 7.406 07/06/2021 MUX9SOR 34.8 07/06/2021 PO2ART 279.0 07/06/2021 YHD1VPE 21.4 07/06/2021 Q6MXHAQA 99.4 07/06/2021 FIO2 30.0 08/05/2021 Lactic Acid: Lab Results Component Value Date LACTA 1.0 07/13/2021 LACTA 1.6 06/28/2021 DATA: Complete Blood Count: Recent Labs 08/03/2144508/04/2143908/05/21 043 WBC 11.9* 10.5 9.5 HGB 8.3* 8.0* [...] 23.9 06/28/2021 Basal Metabolic Profile: Recent Labs 08/03/2144508/04/210 08/05/21 0438 NA 139 141 143 K [...] No results for input(s): LABIRON, TIBC, FERRITIN, UCYSWPTT55, FOLATE, OCCULTBLD in the last 72 hours. 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 I have seen and examined the patient and the coffey elements of the encounter have been performed by me. I agree with the assessment, plan and orders as documented by the resident/fellow/medical student/SEAT COVERS TRIMMER/PA With changes made to the note as needed. Pt was seen during rounds. Review of Systems: In addition to the pertinent positives and negatives as stated within HPI and the review of systemsas documented in their notes, all other systems [...] at least 30 Min so far today, excludingprocedures. Aniket Padron MD 08/05/2021 4:24 PM * Santino Kincaid APRN - [facility] - 08/05/2021 9:38 AM EDT Images from the original note were not included. [facility] -Progress Note Today's Date and [...] placed 07/30/21 per ENT Infection Control Recommendations Portal Precautions Isolate for Covid until 07-23-21 Antimicrobial [...] related to arthritis or osteomyelitis by CT cervicalspine of 06-29-21. Patient suffers from immunosuppression from [...] through 08-20-21. Patient was transferred back to [facility] on 07-14-21 because of a [...] C2 RHIZOTOMY, EXPLORATION OF EPIDURAL PHLEGMON performed byAlisia Cevallos DO at [facility] OR CHOLECYSTECTOMY EYE SURGERY [address] shunt for open angle glaucoma. MRI compatible- device is all silicone LAMINECTOMY 07/06/2021 Posterior C1, LEFT C2 RHIZOTOMY, EXPLORATION OF EPIDURAL PHLEGMON PICC INSERTION VASCULAR ACCESS TEAM 07/10/2021 SHOULDER SURGERY right TRACHEOSTOMY 07/30/2021 TRACHEOSTOMY N/A 07/30/2021 TRACHEOTOMY performed by Erica Santiago MD at [facility] OR UPPER GASTROINTESTINAL ENDOSCOPY N/A 07/02/2021 EGD ESOPHAGOGASTRODUODENOSCOPY performed by Hari Wagner MD at [facility] Endoscopy Medications: insulin glargine 20 Units [...] Friends and Family: Not on file Attends Islam Services: Not on file Active Member of [...] following labs: CBC with Differential: Recent Labs 08/04/2143908/05/21437 WBC 10.5 9.5 HGB 8.0* 7.7* HCT 23.7* 24.2* PLT 429 458* LYMPHOPCT 17* 19* MONOPCT 7 6 BMP: Recent Labs 08/04/2143908/05/21437 NA 141 143 K 3.5* 3.5* CL [...] Decision Making-Imaging: No new imaging Medical Decision Qtvkjo-Qpeiefdg-Vasac: SARS-CoV-2, Rapid COVID-19, Rapid Collected: 07/13/21 3514 Result status: Final Resulting lab: [facility] Reference range: Not Detected Value: [...] this assay. Fact sheet for Healthcare Providers: https://www.fda.gov/media/676676/download Fact sheet for Patients: https://www.fda.gov/media/914940/download Methodology: Isothermal Nucleic Acid Amplification Culture, Respiratory Order: [id number] Status: Final result Visible to patient: No (not released) Next appt: Today at 02:30 PM in Radiology (STV MRI RM 1 (1.5T)) Specimen Information: Sputum Aspirated 0 Result Notes Component 07/24/21 5591 Specimen Description .ASPIRATED SPUTUM Direct Exam < 10 EPITHELIAL CELLS/LPF Direct Exam >25 NEUTROPHILS/LPF Direct Exam MANY GRAM NEGATIVE RODS Abnormal Culture KLEBSIELLA AEROGENES HEAVY GROWTH Abnormal Culture NO NORMAL ROB Resulting Agency [facility] [place] Susceptibility Klebsiella aerogenes (1) Antibiotic Interpretation Microscan [...] Please call with questions. REBEKA RAMOS CNP * REBEKA Ramos CNP - 08/04/2021 12:46 PM EDT Images from the original note were not included. [facility] -Progress Note Today's Date and [...] placed 07/30/21 per ENT Infection Control Recommendations Portal Precautions Isolate for Covid until 07-23-21 Antimicrobial [...] related to arthritis or osteomyelitis by CT cervicalspine of 06-29-21. Patient suffers from immunosuppression from [...] through 08-20-21. Patient was transferred back to [facility] on 07-14-21 because of a [...] C2 RHIZOTOMY, EXPLORATION OF EPIDURAL PHLEGMON performed byAlisia Cevallos DO at [facility] OR CHOLECYSTECTOMY EYE SURGERY [address] shunt for open angle glaucoma. MRI compatible- device is all silicone LAMINECTOMY 07/06/2021 Posterior C1, LEFT C2 RHIZOTOMY, EXPLORATION OF EPIDURAL PHLEGMON PICC INSERTION VASCULAR ACCESS TEAM 07/10/2021 SHOULDER SURGERY right TRACHEOSTOMY 07/30/2021 TRACHEOSTOMY N/A 07/30/2021 TRACHEOTOMY performed by Erica Santiago MD at [facility] OR UPPER GASTROINTESTINAL ENDOSCOPY N/A 07/02/2021 EGD ESOPHAGOGASTRODUODENOSCOPY performed by Hari Wagner MD at [facility] Endoscopy Medications: insulin glargine 20 Units [...] Friends and Family: Not on file Attends Islam Services: Not on file Active Member of [...] 106 < > 107 108* CO2 22 > 22 22 BUN 15 < > [...] Decision Making-Imaging: No new imaging Medical Decision Itwdtx-Maxffsie-Aomrp: SARS-CoV-2, Rapid COVID-19, Rapid Collected: 07/13/21 3667 Result status: Final Resulting lab: [facility] Reference range: Not Detected Value: [...] this assay. Fact sheet for Healthcare Providers: https://www.fda.gov/media/290484/download Fact sheet for Patients: https://www.fda.gov/media/860882/download Methodology: Isothermal Nucleic Acid Amplification Culture, Respiratory Order: [id number] Status: Final result Visible to patient: No (not released) Next appt: Today at 02:30 PM in Radiology (STV MRI RM 1 (1.5T)) Specimen Information: Sputum Aspirated 0 Result Notes Component 07/24/21 9645 Specimen Description .ASPIRATED SPUTUM Direct Exam < 10 EPITHELIAL CELLS/LPF Direct Exam >25 NEUTROPHILS/LPF Direct Exam MANY GRAM NEGATIVE RODS Abnormal Culture KLEBSIELLA AEROGENES HEAVY GROWTH Abnormal Culture NO NORMAL ROB Resulting Agency [facility] [place] Susceptibility Klebsiella aerogenes (1) Antibiotic [...] Please call with questions. REBEKA RAMOS CNP * REBEKA Leach NP - 08/04/2021 10:00 AM EDT Images from the original note [...] [U07.1]. Her hospital course has been associated withCOVID, respiratory distress, ventilator, tracheostomy, spinal abscess. The [...] C2 RHIZOTOMY, EXPLORATION OF EPIDURAL PHLEGMON performed byAlisia Cevallos DO at [facility] OR CHOLECYSTECTOMY EYE SURGERY [address] shunt for open angle glaucoma. MRI compatible- device is all silicone LAMINECTOMY 07/06/2021 Posterior C1, LEFT C2 RHIZOTOMY, EXPLORATION OF EPIDURAL PHLEGMON PICC INSERTION VASCULAR ACCESS TEAM 07/10/2021 SHOULDER SURGERY right TRACHEOSTOMY 07/30/2021 TRACHEOSTOMY N/A 07/30/2021 TRACHEOTOMY performed by Erica Santiago MD at [facility] OR UPPER GASTROINTESTINAL ENDOSCOPY N/A 07/02/2021 EGD ESOPHAGOGASTRODUODENOSCOPY performed by Hari Wagner MD at [facility] Endoscopy FAMILY HISTORY Family History Problem [...] [] respiratory distress [] Tachypnea [x] Other:Ventilator totracheostomy Abdomen: [x] Soft/non-tender [] Normal appearance [] [...] Palliative Care will continue to follow Ms. Talamantess care as needed. The note has been dictated by maco, typing errors may be a possibility Thank you for allowing Palliative Care to participate in the care of Ms. Georges . [facility] Palliative Care Number [phone] [facility] Palliative Care Number [phone] [facility] Palliative Care Number [phone] Please call with any palliative questions or concerns. Palliative Care Team is available via perfect serve or via phone. * Isrrael Mcgrath MD - 08/04/2021 9:14 AM EDT ENT/OTOLARYNGOLOGY PROGRESS NOTE REASON FOR CARE: Tracheostomy dependence HISTORY OF PRESENT ILLNESS: Meg Georges is a 56 y.o. who is being seen for follow-up of tracheostomy. Placed 07/30/21. No acuteissues. Medications: Current Facility-Administered Medications Medication Dose Route [...] sodium chloride 0.9 % 100 mL infusion 0.1- 1.5 mcg/kg/hr IntraVENous Continuous Tete Melgar MD 12.1 mL/hr at 08/04/21 0643 0.8 mcg/kg/hr at 08/04/21 0643 oxyCODONE (ROXICODONE) immediate release tablet 10 mg 10 mg Oral Q6H Tami Vega MD 10 mg at08/04/21 0228 bisacodyl (DULCOLAX) suppository 10 mg 10 mg Rectal Daily PRN Skylar Coyle MD 0.9 % sodium chloride infusion IntraVENous Continuous Skylar Coyle MD 10 mL/hr at 643 Rate Verify at 08/04/21 0643 0.9 % [...] Q1H PRN Skylar Coyle MD 25 mcg at08/04/21 0625 latanoprost (XALATAN) 0.005 % ophthalmic solution 1 drop 1 drop Both Eyes Nightly Skylar Coyle MD 1 drop at 08/03/212104 [Held by provider] lactobacillus (CULTURELLE) capsule 1 capsule 1 capsule Oral Daily with breakfastChris Lassiter MD 1 capsule at 07/24/21905 [Held by provider] gabapentin (NEURONTIN) capsule 200 mg 200 mg Oral TID Chris Lassiter MD 200 mg at 07/24/21905 nafcillin 2,000 mg in dextrose 5 % 100 mL IVPB (mini-bag) 2,000 mg IntraVENous Q6H Skylar Coyle MD Stopped at 08/04/21 0559 [Held by provider] aspirin tablet 325 mg 325 mg Oral Daily Tami Vega MD 325 mg at 906 [Held by provider] calcium carbonate-vitamin D3 (CALTRATE) 600-400 MG-UNIT per tab 2 tablet 2 tablet Oral Daily Becki Chang MD 2 tablet at 07/23/21 1209 sodium chloride flush 0.9 % injection 5-40 mL 5-40 mL IntraVENous PRN Skylar Coyle MD 10 mL at 08/03/212005 ondansetron (ZOFRAN-ODT) disintegrating tablet 4 mg 4 mg Oral Q8H PRN Skylar Coyle MD 4 mgat 07/14/21 183 Or ondansetron (ZOFRAN) injection 4 mg 4 mg IntraVENous Q6H PRN Skylar Coyle MD 4 mg at 07/18/21 0415 acetaminophen (TYLENOL) tablet 650 mg 650 mg Oral Q6H PRN Skylar Coyle MD Or acetaminophen (TYLENOL) suppository 650 mg 650 mg Rectal Q6H PRN Skylar Coyle MD dextromethorphan-guaiFENesin (ROBITUSSIN-DM) 10-100 MG/5ML liquid 5 mL 5 mL Oral Q4H PRN Skylar Morrow MD 5 mL at 07/14/21 182 dextrose bolus 10% 125 mL 125 mL [...] before starting the procedure that confirmed a finalverification of the correct patient, correct procedure, correct [...] removed, and the ventilator circuit reattached. The tracheostomyties were then fastened at an appropriate tightness. [...] and Dr. Angel Krueger [address] [facility] [address] OPTION 2: [facility] [address] [place] [address] Appointment scheduling: ISRRAEL MCGRATH MD Pediatric Otolaryngology-Head and Neck Surgery [facility] Otolaryngology group Office ph# [phone] Also available in [employer]Net[employer] * Claudine Fisher RCP - 08/04/2021 9:14 AM EDT Pt trach changed without incident, #7.0 XLT, per Dr. Mcgrath. Trach site red, Mepilex to be placed. Pttolerated well. * Courtney Seaman MD - 08/04/2021 7:25 AM EDT Images from the original note were not included. Critical Care Team - Daily Progress Note Date and time: 08/04/2021 8:43 AM Patient's name: Meg Georges Patient's account/billing number: [id number] Patient's Date of : 1965 Age: 56 [...] no Ulcer prophylaxis: [x] PPI Agent, [] Y0Vmatp, [] Sucralfate, [] Other: Glycemic control: controlled; [...] patient was sent to the ED in [facility] from outpatient infusion center whereshe had been getting 2 units of PRBC and potassium. During the infusion her blood pressure increased to 180s with a headache. Initial labs in the ED noted WBC 8, potassium 2.2, normal LFTs. Magnesium1.5. Patient was found to be COVID-positive with superimposed lower left lobe pneumonia. Started onZosyn 3.3 g. Transferred to our hospital on July 14, 2021. Patient received dexamethasone on July 14 and July 15. Patient was given that bebtelovimab infusion on July 15. Cefazolin 07/16-07/18. Nafcillin 1000mg 07/16, increased to 2000 mg on July 18. Cervical phlegmon culture no growth. May have concern for osteomyelitis in the bone. Blood culturesnegative to date. Patient was set to be [...] 1800 ml Net 126.73 ml Date 08/04/21 - 08/04/21 2359 Shift [id number] 9733-5194 9592-9586 24 Hour Total INTAKE I.V.(mL/kg) 376.1(6) 376.1(6) [...] SubCUTAneous Daily Continuous Infusions: dexmedetomidine 0.8 mcg/kg/hr (08/04/21642) sodium chloride 10 mL/hr at 08/04/21642 sodium [...] CO2: 37 (%) Position: Semi-Simon's Humidification Source: [facility] Results Component Value Date PHART 7.406 07/06/2021 CZM3JPB 34.8 07/06/2021 PO2ART 279.0 07/06/2021 HUC3TTH 21.4 07/06/2021 V4FENAPA 99.4 07/06/2021 FIO2 30.0 08/03/2021 Lactic Acid: [...] 139 141 K 3.3* 3.6* 3.5* BUN CREATININE 0.67 0.60 0.57 CL 106 107 [...] No results for input(s): LABIRON, TIBC, FERRITIN, FPVOALRS25, FOLATE, OCCULTBLD in the last 72 hours. 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 I have seen and examined the patient and the coffey elements of the encounter have been performed by me. I agree with the assessment, plan and orders as documented by the resident/fellow/medical student/SEAT COVERS TRIMMER/PA With changes made to the note as needed. Pt was seen during rounds. Review of Systems: In addition to the pertinent positives and negatives as stated within HPI and the review of systemsas documented in their notes, all other systems [...] at least 30 Min so far today, excludingprocedures. Aniket Padron MD 08/04/2021 1:38 PM * Ashwini Felix MS, RD, LD - 08/03/2021 1:42 PM EDT Comprehensive Nutrition Assessment Type and Reason for Visit: Reassess Nutrition Recommendations/Plan: 1. Modify TF to: Peptide-based at goal rate 50 mL/hr. Provides 1440 kcal, 90 g PRO. Monitor for tolerance. Malnutrition Assessment: Malnutrition Status: At risk for malnutrition (Comment) (07/30/21 8337) Context: Acute Illness Findings of the 6 clinical characteristics of malnutrition: Energy Intake: No significant decrease in energy intake (with use of TF) Weight Loss: No significant weight loss Body Fat Loss: No significant body fat loss Muscle Mass Loss: Unable to assess Fluid Accumulation: Mild Extremities,Generalized Gas Regulator Repairer Helper Strength: Not Performed Nutrition Assessment: Remains intubated [...] Anthropometric Measures: Height: 5' 5 (165.1 cm) [place] Body Weight (IBW): 125 lbs (57 kg) Admission Body Weight: 133 lb 13.1 oz (60.7 kg) Current Body Weight: 137 lb 9.2 oz (62.4 kg) (08/03, [facility]), 110.1 % IBW. Weight Source: Bed Scale [...] function as evidenced by NPO or clear liquidstatus due to medical condition (need for enteral [...] determine Ashwini Felix MS, RD, LD Contact: [phone] * REBEKA Wills CNP - 08/03/2021 9:57 AM EDT Otolaryngology staff note POD 4 s/p tracheostomy placement Patient was seen and examined this morning On vent, sedated, though weaning 7.0 Shiley XLT cuffed, in good position. Some dried blood around trach but there is no peristomal wound breakdown c-collar still in place Plan for trach change on POD 5 (Friday08/04/21) REBEKA Wills CNP Pediatric Otolaryngology-Head and Neck Surgery [facility] Office ph# [phone] Also available in [email or web address] * Seth Stokes MD - 08/03/2021 8:39 AM EDT Images from the original note were not included. [facility] -Progress Note Today's Date and [...] placed 07/30/21 per ENT Infection Control Recommendations Portal Precautions Isolate for Covid until 07-23-21 Antimicrobial [...] cervical spine History of Present Illness: Meg Georegs is a 56 y.o.-year-old female who was [...] related to arthritis or osteomyelitis by CT cervicalspine of 06-29-21. Patient suffers from immunosuppression from [...] through 08-20-21. Patient was transferred back to [facility] on 07-14-21 because of a [...] paraspinal soft tissues at the level of thebase of the skull. Surgical intervention for atlantoaxial [...] C2 RHIZOTOMY, EXPLORATION OF EPIDURAL PHLEGMON performed byAlisia Cevallos DO at [facility] OR CHOLECYSTECTOMY EYE SURGERY [address] shunt for open angle glaucoma. MRI compatible- device is all silicone LAMINECTOMY 07/06/2021 Posterior C1, LEFT C2 RHIZOTOMY, EXPLORATION OF EPIDURAL PHLEGMON PICC INSERTION VASCULAR ACCESS TEAM 07/10/2021 SHOULDER SURGERY right TRACHEOSTOMY 07/30/2021 TRACHEOSTOMY N/A 07/30/2021 TRACHEOTOMY performed by Erica Santiago MD at [facility] OR UPPER GASTROINTESTINAL ENDOSCOPY N/A 07/02/2021 EGD ESOPHAGOGASTRODUODENOSCOPY performed by Hari Wagner MD at [facility] Endoscopy Medications: insulin lispro 0-18 Units [...] Friends and Family: Not on file Attends Islam Services: Not on file Active Member of [...] following labs: CBC with Differential: Recent Labs 08/02/214 08/03/216 WBC 12.3* 11.9* HGB 8.0* 8.3* [...] are unchanged. Suggest ultrasound correlation. Medical Decision Sdvlgb-Hwarrscm-Bohcr: SARS-CoV-2, Rapid COVID-19, Rapid Collected: 07/13/212 Result status: Final Resulting lab: [facility] Reference range: Not Detected Value: [...] this assay. Fact sheet for Healthcare Providers: https://www.fda.gov/media/323320/download Fact sheet for Patients: https://www.fda.gov/media/572939/download Methodology: Isothermal Nucleic Acid Amplification Culture, Respiratory Order: [id number] Status: Final result Visible to patient: No (not released) Next appt: Today at 02:30 PM in Radiology (STV MRI RM 1 (1.5T)) Specimen Information: Sputum Aspirated 0 Result Notes Component 07/24/21 2787 Specimen Description .ASPIRATED SPUTUM Direct Exam < 10 EPITHELIAL CELLS/LPF Direct Exam >25 NEUTROPHILS/LPF Direct Exam MANY GRAM NEGATIVE RODS Abnormal Culture KLEBSIELLA AEROGENES HEAVY GROWTH Abnormal Culture NO NORMAL ROB Resulting Agency [facility] - [place] Susceptibility Klebsiella aerogenes (1) [...] data were reviewed Discussed with nursing Staff, discharge planner Infection Control and Prevention measures reviewed All prior entries were reviewed Administer medications as ordered Prognosis: Very Guarded Discharge planning reviewed Follow up as outpatient. Thank you for allowing us to participate in the care of this patient. Please call with questions. Jany Francis, 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 ATTESTATION: I have discussed the case, including pertinent history and exam findings with the EXPERIMENTAL ROCKET SLED MECHANIC. I have evaluated the History, physical findings and pictures of the patient and the coffey elements of the encounter have been performed by me. I have reviewed the laboratory data, other diagnostic studies and discussed them with the EXPERIMENTAL ROCKET SLED MECHANIC. I have updated the medical record where necessary. I agree with the assessment, plan and orders as documented by the EXPERIMENTAL ROCKET SLED MECHANIC. Seth Stokes MD. Pager: - Office: * Xin Grove MD - 08/03/2021 7:48 AM EDT Images from the original note were not included. Critical Care Team - Daily Progress Note Date and time: 08/03/2021 7:48 AM Patient's name: Meg Barton Patient's account/billing number: [id number] Patient's Date of : 1965 Age: 56 [...] site is having discharge which is thick andpurulent. F.A.S.T. M. H.U.G.S. B.I.D. Feeding Diet: Diet NPO ADULT TUBE FEEDING; Nasogastric; Peptide Based; Continuous; 25; Yes; 20; Q 4 hours; 45; 30; Q 4 hours Fluids: NS 10ml/hr Family: sister is contact Analgesic: oxycodone IR 10mg q6h Sedation: precedex Thrombo-prophylaxis: [x] Enoxaparin, [] Unfract. Heparin Subcutaneously, [] EPC Cuffs Mobility: none Heads up: yes Ulcer prophylaxis: [] PPI Agent, [x] S7Ssygo, [] Sucralfate, [] Other: Glycemic control: high ISS, lantus 16 subq is held Spontaneous breathing trial: trach Bowel regimen/urine output: milk of mag Indwelling catheter/lines: yes De-escalation: yes CURRENT VENTILATION STATUS: [x] Ventilator [] BIPAP [] Nasal Cannula [] Room Air IF INTUBATED, ET TUBE MARKING AT LOWER LIP: [facility] SEDATION: Precedex gtt [] Propofol gtt [...] Date 08/03/21 0000 - 08/03/21 2359 Shift [id number] 1208-7756 6543-2749 24 Hour Total INTAKE I.V.(mL/kg) 93.8(1.5) 93.8(1.5) [...] CO2: 30 (%) Position: Semi-Simon's Humidification Source: [facility] Results Component Value Date PHART 7.406 07/06/2021 [id number] 34.8 07/06/2021 PO2ART 279.0 07/06/2021 TRP7OOJ 21.4 07/06/2021 T1VNERBY 99.4 07/06/2021 FIO2 30.0 08/03/2021 Lactic Acid: [...] No results for input(s): LABIRON, TIBC, FERRITIN, SFLEXTIG77, FOLATE, OCCULTBLD in the last 72 hours. Cultures during this admission: Blood cultures: [] None drawn [x] Negative [] Positive (Details: ) Urine Culture: [x] None drawn [] Negative [] Positive (Details: ) Sputum Culture: [] None drawn [] Negative [x] Positive (Details: 07/25/21 gram- Klebsiella, completedlevaquin 7 days) Endotracheal aspirate: [x] None drawn [...] MD Department of Internal Medicine/ Critical care [facility]) 08/03/2021, 7:48 AM Associated attestation - Aniket Padron MD - 08/03/2021 3:44 PM EDT Attending Physician Statement I have discussed the case of Meg Georges, including pertinent history and exam findings with the resident/fellow/medical student/SEAT COVERS TRIMMER/PA. I have seen and examined the patient and the coffey elements of the encounter have been performed by me. I agree with the assessment, plan and orders as documented by the resident/fellow/medical student/SEAT COVERS TRIMMER/PA With changes made to the note as needed. Pt was seen during rounds. Review of Systems: In addition to the pertinent positives and negatives as stated within HPI and the review of systemsas documented in their notes, all other systems [...] at least 30 Min so far today, excludingprocedures. Aniket Padron MD 08/03/2021 3:44 PM * Hamida Fox RN - 08/02/2021 3:38 PM EDT [facility] Continence Nurse Follow Up [...] cm^3 Wound Healing % 79 Wound Assessment Dusky;[place]/red;Fibrinous Drainage Amount Scant Drainage Description Serosanguinous Odor [...] of learning []? Refused teaching []? N/A * Skylar Coyle MD - 08/02/2021 12:22 PM EDT Otolaryngology staff note POD 3 s/p tracheostomy placement Patient was seen and examined on rounds this morning On vent, sedated, though weaning Trach in good position. No peristomal wound breakdown c-collar in place Trach care being performed with collar care Plan for trach change on POD 5 (Friday08/04/21) Skylar Coyle MD Pediatric Otolaryngology-Head and Neck Surgery [facility] Otolaryngology group Office ph# [phone] Also available in [email or web address] * Seth Stokes MD - 08/02/2021 9:23 AM EDT Images from the original note were not included. [facility] -Progress Note Today's Date and [...] placed 07/30/21 per ENT Infection Control Recommendations Portal Precautions Isolate for Covid until 07-23-21 Antimicrobial [...] related to arthritis or osteomyelitis by CT cervicalspine of 06-29-21. Patient suffers from immunosuppression from [...] through 08-20-21. Patient was transferred back to [facility] on 07-14-21 because of a [...] paraspinal soft tissues at the level of thebase of the skull. Surgical intervention for atlantoaxial [...] C2 RHIZOTOMY, EXPLORATION OF EPIDURAL PHLEGMON performed byAlisia Cevallos DO at [facility] OR CHOLECYSTECTOMY EYE SURGERY [address] shunt for open angle glaucoma. MRI compatible- device is all silicone LAMINECTOMY 07/06/2021 Posterior C1, LEFT C2 RHIZOTOMY, EXPLORATION OF EPIDURAL PHLEGMON PICC INSERTION VASCULAR ACCESS TEAM 07/10/2021 SHOULDER SURGERY right TRACHEOSTOMY 07/30/2021 TRACHEOSTOMY N/A 07/30/2021 TRACHEOTOMY performed by Erica Santiago MD at [facility] OR UPPER GASTROINTESTINAL ENDOSCOPY N/A 07/02/2021 EGD ESOPHAGOGASTRODUODENOSCOPY performed by Hari Wagner MD at [facility] Endoscopy Medications: insulin lispro 0-18 Units [...] Friends and Family: Not on file Attends Islam Services: Not on file Active Member of [...] are unchanged. Suggest ultrasound correlation. Medical Decision Rjnnrw-Znnhddxt-Wwxbz: SARS-CoV-2, Rapid COVID-19, Rapid Collected: 07/13/21 4034 Result status: Final Resulting lab: [facility] Reference range: Not Detected Value: DETECTED [...] this assay. Fact sheet for Healthcare Providers: https://www.fda.gov/media/039175/download Fact sheet for Patients: https://www.fda.gov/media/731263/download Methodology: Isothermal Nucleic Acid Amplification Culture, Respiratory Order: [id number] Status: Final result Visible to patient: No (not released) Next appt: Today at 02:30 PM in Radiology (STV MRI RM 1 (1.5T)) Specimen Information: Sputum Aspirated 0 Result Notes Component 07/24/21 6683 Specimen Description .ASPIRATED SPUTUM Direct Exam < 10 EPITHELIAL CELLS/LPF Direct Exam >25 NEUTROPHILS/LPF Direct Exam MANY GRAM NEGATIVE RODS Abnormal Culture KLEBSIELLA AEROGENES HEAVY GROWTH Abnormal Culture NO NORMAL ROB Resulting Agency [facility] - [place] Susceptibility Klebsiella aerogenes (1) Antibiotic [...] data were reviewed Discussed with nursing Staff, discharge planner Infection Control and Prevention measures reviewed All prior entries were reviewed Administer medications as ordered Prognosis: Very Guarded Discharge planning reviewed Follow up as outpatient. Thank you for allowing us to participate in the care of this patient. Please call with questions. Jany Francis, 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 ATTESTATION: I have discussed the case, including pertinent history and exam findings with the EXPERIMENTAL ROCKET SLED MECHANIC. I have evaluated the History, physical findings and pictures of the patient and the coffey elements of the encounter have been performed by me. I have reviewed the laboratory data, other diagnostic studies and discussed them with the EXPERIMENTAL ROCKET SLED MECHANIC. I have updated the medical record where necessary. I agree with the assessment, plan and orders as documented by the EXPERIMENTAL ROCKET SLED MECHANIC. Seth Stokes MD. Pager: - Office: * Keri Hart MD - 08/02/2021 7:47 AM EDT Critical Care Team - Daily Progress Note Date and time: 08/02/2021 7:50 AM Patient's name: Meg Georges Patient's account/billing number: [id number] Patient's Date of : 1965 Age: 56 [...] yes Ulcer prophylaxis: [] PPI Agent, [x] W0Mwcis, [] Sucralfate, [] Other: Glycemic control: high insulin Spontaneous breathing trial: no Bowel regimen/urine output: milk of mag Indwelling catheter/lines: yes De-escalation: yes AWAKE & FOLLOWING COMMANDS: [x] No [] Yes CURRENT VENTILATION STATUS: [x] Ventilator [] BIPAP [] Nasal Cannula [] Room Air IF INTUBATED, ET TUBE MARKING AT LOWER LIP: [facility] SEDATION: Fentanyl gtt [x] Propofol gtt [...] Date 08/02/21 0000 - 08/02/21 2359 Shift [id number] 8449-8836 0238-3232 24 Hour Total INTAKE I.V.(mL/kg) 109.3(1.8) 109.3(1.8) [...] CO2: 32 (%) Position: Semi-Simon's Humidification Source: [facility] Results Component Value Date PHART 7.406 07/06/2021 UNL0REA 34.8 07/06/2021 PO2ART 279.0 07/06/2021 LYW4QAT 21.4 07/06/2021 S3VRMEEQ 99.4 07/06/2021 FIO2 30.0 08/02/2021 Lactic Acid: [...] No results for input(s): LABIRON, TIBC, FERRITIN, NXSPWHWV86, FOLATE, OCCULTBLD in the last 72 hours. [...] MD Department of Internal Medicine/ Critical care [facility], [facility]) 08/02/2021, 7:50 AM Associated attestation - Aniket Padron MD - 08/02/2021 4:40 PM EDT Attending Physician Statement I have discussed the case of Meg Georges, including pertinent history and exam findings with the resident/fellow/medical student/SEAT COVERS TRIMMER/PA. I have seen and examined the patient and the coffey elements of the encounter have been performed by me. I agree with the assessment, plan and orders as documented by the resident/fellow/medical student/SEAT COVERS TRIMMER/PA With changes made to the note as needed. Pt was seen during rounds. Review of Systems: In addition to the pertinent positives and negatives as stated within HPI and the review of systemsas documented in their notes, all other systems [...] at least 30 Min so far today, excludingprocedures. Aniket Padron MD 08/02/2021 4:39 PM * Skylar Coyle MD - 08/01/2021 12:20 PM EDT Otolaryngology staff note POD 2 s/p tracheostomy placement Patient was seen and examined on rounds this morning On vent, sedated, though weaning Trach in good position. No peristomal wound breakdown c-collar in place Trach care being performed with collar care Plan for trach change on POD 5 (Friday08/04/21) Skylar Coyle MD Pediatric Otolaryngology-Head and Neck Surgery [facility] Otolaryngology group Office # [phone] Also available in [email or web address] * Ashwini Perales, EXPERIMENTAL ROCKET SLED MECHANIC - SEAT COVERS TRIMMER - 08/01/2021 11:00 AM EDT Images from the original note [...] [U07.1]. Her hospital course has been associated withCovid, respiratory failure, spinal abscess. The patient has [...] will continue to follow. Healthcare power of distribution manager placed on patient's chart. OVERNIGHT EVENTS: Patient [...] C2 RHIZOTOMY, EXPLORATION OF EPIDURAL PHLEGMON performed byAlisia Cevallos DO at [facility] OR CHOLECYSTECTOMY EYE SURGERY [address] shunt for open angle glaucoma. MRI compatible- device is all silicone LAMINECTOMY 07/06/2021 Posterior C1, LEFT C2 RHIZOTOMY, EXPLORATION OF EPIDURAL PHLEGMON PICC INSERTION VASCULAR ACCESS TEAM 07/10/2021 SHOULDER SURGERY right TRACHEOSTOMY 07/30/2021 TRACHEOSTOMY N/A 07/30/2021 TRACHEOTOMY performed by Erica Santiago MD at [facility] OR UPPER GASTROINTESTINAL ENDOSCOPY N/A 07/02/2021 EGD ESOPHAGOGASTRODUODENOSCOPY performed by Hari Wagner MD at [facility] Endoscopy FAMILY HISTORY Family History Problem [...] Active Problems: CIDP (chronic inflammatory demyelinating polyneuropathy) ([facility]) Bacteremia Hypothyroidism Hypokalemia Type 2 diabetes mellitus with diabetic polyneuropathy ([facility]) Primary hypertension Metabolic encephalopathy MSSA (methicillin susceptible Staphylococcus aureus) septicemia ([facility]) CRP elevated Bandemia Septic arthritis of cervical spine ([facility]) 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 Palliative Care Team is available via perfect serve or via phone. * Seth Stokes MD - 08/01/2021 9:39 AM EDT Images from the original note were not included. [facility] -Progress Note Today's Date and [...] placed 07/30/21 per ENT Infection Control Recommendations Portal Precautions Isolate for Covid until 07-23-21 Antimicrobial [...] related to arthritis or osteomyelitis by CT cervicalspine of 06-29-21. Patient suffers from immunosuppression from [...] through 08-20-21. Patient was transferred back to [facility] on 07-14-21 because of a [...] paraspinal soft tissues at the level of thebase of the skull. Plans for atlantoaxial fixation [...] C2 RHIZOTOMY, EXPLORATION OF EPIDURAL PHLEGMON performed byAlisia Cevallos DO at [facility] OR CHOLECYSTECTOMY EYE SURGERY [address] shunt for open angle glaucoma. MRI compatible- device is all silicone LAMINECTOMY 07/06/2021 Posterior C1, LEFT C2 RHIZOTOMY, EXPLORATION OF EPIDURAL PHLEGMON PICC INSERTION VASCULAR ACCESS TEAM 07/10/2021 SHOULDER SURGERY right TRACHEOSTOMY 07/30/2021 TRACHEOSTOMY N/A 07/30/2021 TRACHEOTOMY performed by Erica Santiago MD at [facility] OR UPPER GASTROINTESTINAL ENDOSCOPY N/A 07/02/2021 EGD ESOPHAGOGASTRODUODENOSCOPY performed by Hari Wagner MD at [facility] Endoscopy Medications: insulin lispro 0-12 Units [...] Friends and Family: Not on file Attends Islam Services: Not on file Active Member of [...] pain or palpitations.No shortness of breath. No MARIENLLI Lung: No shortness of breath or cough. [...] labs: CBC with Differential: Recent Labs 07/31/21 0507/31/2151807/31/21 1854 08/01/21451 WBC 14.0* -- -- 14.0* HGB 9.5* < > 9.2* 9.1* HCT 27.4* < > 27.4* 27.1* PLT 502* -- -- 490* LYMPHOPCT 21* -- -- 19* MONOPCT 7 -- -- 5 < > = values in this interval not displayed. BMP: Recent Labs 07/31/21 0508/01/212 NA 140 138 K 3.3* 3.2* CL [...] are unchanged. Suggest ultrasound correlation. Medical Decision Bqvwdm-Tfrvhmua-Zacrx: SARS-CoV-2, Rapid COVID-19, Rapid Collected: 07/13/21 5678 Result status: Final Resulting lab: [facility] Reference range: Not Detected Value: [...] this assay. Fact sheet for Healthcare Providers: https://www.fda.gov/media/490878/download Fact sheet for Patients: https://www.fda.gov/media/773295/download Methodology: Isothermal Nucleic Acid Amplification Culture, Respiratory Order: [id number] Status: Final result Visible to patient: No (not released) Next appt: Today at 02:30 PM in Radiology (STV MRI RM 1 (1.5T)) Specimen Information: Sputum Aspirated 0 Result Notes Component 07/24/21 2560 Specimen Description .ASPIRATED SPUTUM Direct Exam < 10 EPITHELIAL CELLS/LPF Direct Exam >25 NEUTROPHILS/LPF Direct Exam MANY GRAM NEGATIVE RODS Abnormal Culture KLEBSIELLA AEROGENES HEAVY GROWTH Abnormal Culture NO NORMAL ROB Resulting Agency [facility] - [place] Susceptibility Klebsiella aerogenes (1) [...] data were reviewed Discussed with nursing Staff, discharge planner Infection Control and Prevention measures reviewed All prior entries were reviewed Administer medications as ordered Prognosis: Very Guarded Discharge planning reviewed Follow up as outpatient. Thank you for allowing us to participate in the care of this patient. Please call with questions. Jany Francis, 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 ATTESTATION: I have discussed the case, including pertinent history and exam findings with the EXPERIMENTAL ROCKET SLED MECHANIC. I have evaluated the History, physical findings and pictures of the patient and the coffey elements of the encounter have been performed by me. I have reviewed the laboratory data, other diagnostic studies and discussed them with the EXPERIMENTAL ROCKET SLED MECHANIC. I have updated the medical record where necessary. I agree with the assessment, plan and orders as documented by the EXPERIMENTAL ROCKET SLED MECHANIC. Seth Stokes MD. Pager: - Office: * Keri Hart MD - 08/01/2021 8:04 AM EDT Critical Care Team - Daily Progress Note Date and time: 08/01/2021 8:07 AM Patient's name: Meg Georges Patient's account/billing number: [id number] Patient's Date of : 1965 Age: 56 y.o. Date of Admission: 07/14/2021 4:12 PM Length of stay during current admission: 18 Primary Care Physician: Neri aSnta Sr, DO ICU Attending Physician: Dr. Willoughby [...] yes Ulcer prophylaxis: [] PPI Agent, [x] Q3Xugat, [] Sucralfate, [] Other: Glycemic control: medium [...] 5' 5 (1.651 m) Wt 133 lb 9.6oz (60.6 kg) LMP 12/02/2011 SpO2 100% BMI [...] Date 08/01/21 0000 - 08/01/21 2359 Shift [id number] 0467-2381 1785-1944 24 Hour Total INTAKE I.V.(mL/kg) 159.6(2.6) 159.6(2.6) [...] Continuous Infusions: sodium chloride 10 mL/hr at 08/01/21 07 sodium chloride propofol 15 mcg/kg/min (08/01/21 07) fentaNYL 50 mcg/mL 100 mcg/hr (08/01/21702) dextrose [...] CO2: 32 (%) Position: Semi-Simon's Humidification Source: [facility] Lab Results Component Value Date PHART 7.406 07/06/2021 TZF9KFV 34.8 07/06/2021 PO2ART 279.0 07/06/2021 HWP1GGB 21.4 07/06/2021 T4SKWUWW 99.4 07/06/2021 FIO2 30.0 07/30/2021 Lactic Acid: [...] 140 138 K 3.8 3.3* 3.2* BUN CREATININE 0.70 0.78 0.72 CL 105 106 105 CO2 20 20 Magnesium: Lab Results Component Value [...] hours. Last 3 Blood Glucose: Recent Labs 06/13/22 0424 06/14/22 0519 06/15/22 0452 GLUCOSE 276* 209* 212* HgBA1c: Lab Results Component Value Date LABA1C 9.4 06/28/2021 TSH: Lab Results Component Value Date TSH 2.06 07/24/2021 ANEMIA STUDIES No results for input(s): LABIRON, TIBC, FERRITIN, IWYSBQQY05, FOLATE, OCCULTBLD in the last 72 hours. [...] MD Department of Internal Medicine/ Critical care [facility]) 08/01/2021, 8:07 AM Associated attestation - Aniket Padron MD - 08/01/2021 7:15 PM EDT Attending Physician Statement I have discussed the case of Meg Georges, including pertinent history and exam findings with the resident/fellow/medical student/SEAT COVERS TRIMMER/PA. I have seen and examined the patient and the coffey elements of the encounter have been performed by me. I agree with the assessment, plan and orders as documented by the resident/fellow/medical student/SEAT COVERS TRIMMER/PA With changes made to the note as needed. Pt was seen during rounds. Review of Systems: In addition to the pertinent positives and negatives as stated within HPI and the review of systemsas documented in their notes, all other systems [...] at least 30 Min so far today, excludingprocedures. Aniket Padron MD 08/01/2021 7:14 PM * Seth Stokes MD - 07/31/2021 2:50 PM EDT Images from the original note were not included. [facility] -Progress Note Today's Date and [...] placed 07/30/21 per ENT Infection Control Recommendations Portal Precautions Isolate for Covid until 07-23-21 Antimicrobial [...] related to arthritis or osteomyelitis by CT cervicalspine of 06-29-21. Patient suffers from immunosuppression from [...] through 08-20-21. Patient was transferred back to [facility] on 07-14-21 because of a [...] paraspinal soft tissues at the level of thebase of the skull. Plans for atlantoaxial fixation versus possible occipital cervical fixation tentatively this week. Surgical intervention at the discretion of Neurosurgery. Very difficult clinical situation. Klebsiella on sputum from 07/24/21 On Levaquin until 08-01-21 Discussed with RN Labs, X rays reviewed: 07/31/2021 BUN: 21-->17-->7-->11-->14 Cr: 0.70-->0.75-->0.71-->0.70 K: 3.2-->4.3-->3.2-->3.7-->308 WBC: 21.6-->13.6-->11.8-->13.4-->10.8-->14.2-->14.0 Hb:5.8-->7.4-->8.1-->8.5-->7.4-->9.3-->9.5 Plat: 521-->435-->503-->500-->491-->502 CRP: 183.3 SARS Co V2: positive 07-13-21 Cultures: Urine: Blood: 06-28-21: MSSA 06-30-21: MSSA 07-01-21: MSSA 07-02-21: MSSA 07-03-21: MSSA 07-04-21: MSSA 07-07-21: No growth 07-08-21: No growth 07-13-21: No growth 07/14/21: No growth 07/17/21: No growth 07-22-21: No growth X 2 Sputum : 07/24/21: Klebsiella Aerogenes Wound: Cervical tissue neck: 07-06-21: No growth Discussed with patient, RNKRISTEL 07-26-21 CT Chest 07/24/21 07/15/21 CXR 07/24/21 [...] C2 RHIZOTOMY, EXPLORATION OF EPIDURAL PHLEGMON performed byAlisia Cevallos DO at [facility] OR CHOLECYSTECTOMY EYE SURGERY [address] shunt for open angle glaucoma. MRI compatible- device is all silicone LAMINECTOMY 07/06/2021 Posterior C1, LEFT C2 RHIZOTOMY, EXPLORATION OF EPIDURAL PHLEGMON PICC INSERTION VASCULAR ACCESS TEAM 07/10/2021 SHOULDER SURGERY right TRACHEOSTOMY 07/30/2021 TRACHEOSTOMY N/A 07/30/2021 TRACHEOTOMY performed by Erica Santiago MD at [facility] OR UPPER GASTROINTESTINAL ENDOSCOPY N/A 07/02/2021 EGD ESOPHAGOGASTRODUODENOSCOPY performed by Hari Wagner MD at [facility] Endoscopy Medications: insulin lispro 0-12 Units [...] Friends and Family: Not on file Attends Islam Services: Not on file Active Member of [...] labs: CBC with Differential: Recent Labs 07/30/21 0424 07/30/21 0424 07/30/21 1719 07/31/21 0519 WBC 14.2* -- -- 14.0* HGB 9.3* < > 9.6* 9.5* HCT 27.0* < > 29.5* 27.4* PLT 491* -- -- 502* LYMPHOPCT 26 -- -- 21* MONOPCT 4 -- -- 7 < > = values in this interval not displayed. BMP: Recent Labs 07/30/21 0424 07/31/21 0519 NA 137 140 K 3.8 3.3* [...] are unchanged. Suggest ultrasound correlation. Medical Decision [id number]: SARS-CoV-2, Rapid COVID-19, Rapid Collected: 07/13/21 7174 Result status: Final Resulting lab: [facility] Reference range: Not Detected Value: [...] this assay. Fact sheet for Healthcare Providers: https://www.fda.gov/media/993703/download Fact sheet for Patients: https://www.fda.gov/media/303059/download Methodology: Isothermal Nucleic Acid Amplification Culture, Respiratory Order: [id number] Status: Final result Visible to patient: No (not released) Next appt: Today at 02:30 PM in Radiology (STV MRI RM 1 (1.5T)) Specimen Information: Sputum Aspirated 0 Result Notes Component 07/24/21 1521 Specimen Description .ASPIRATED SPUTUM Direct Exam < 10 EPITHELIAL CELLS/LPF Direct Exam >25 NEUTROPHILS/LPF Direct Exam MANY GRAM NEGATIVE RODS Abnormal Culture KLEBSIELLA AEROGENES HEAVY GROWTH Abnormal Culture NO NORMAL ROB Resulting Agency [facility] Susceptibility Klebsiella aerogenes (1) Antibiotic [...] data were reviewed Discussed with nursing Staff, discharge planner Infection Control and Prevention measures reviewed All prior entries were reviewed Administer medications as ordered Prognosis: Very Guarded Discharge planning reviewed Follow up as outpatient. Thank you for allowing us to participate in the care of this patient. Please call with questions. Jany Francis, 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 ATTESTATION: I have discussed the case, including pertinent history and exam findings with the EXPERIMENTAL ROCKET SLED MECHANIC. I have evaluated the History, physical findings and pictures of the patient and the coffey elements of the encounter have been performed by me. I have reviewed the laboratory data, other diagnostic studies and discussed them with the EXPERIMENTAL ROCKET SLED MECHANIC. I have updated the medical record where necessary. I agree with the assessment, plan and orders as documented by the EXPERIMENTAL ROCKET SLED MECHANIC. Seth Stokes MD. Pager: - Office: * Nany Emmanuel, OT - 07/31/2021 11:29 AM EDT Images from the original note were not included. Occupational Therapy [facility] Occupational Therapy Not Seen Note DATE: 07/31/2021 NAME: Meg Georges : 1965 Patient not seen this date for Occupational Therapy due to: Patient is not appropriate for active participation in OT evaluation/treatment at this time d/t intubation, sedation and not following commands. Next Scheduled Treatment: 08/02/2021 * Sonya Barber, 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 - 07/31/2021 8:25 AM EDT ENT/OTOLARYNGOLOGY PROGRESS NOTE REASON FOR CARE: s/p [...] mL 30 mL Per NG tube Daily Shaquille Coyle MD 30 mL at 07/29/21 1013 bisacodyl (DULCOLAX) suppository 10 mg 10 mg Rectal Daily PRN Skylar Coyle MD 0.9 % sodium chloride infusion IntraVENous Continuous Skylar Coyle MD 10 mL/hr at 724 Rate Verify at 07/31/21 0724 0.9 % [...] inject [facility] Work Phone: 1(390) 193-492906-02-2022 Hospital Discharge instructions* Discharge Instr - TEX* Anna Vleiz RN - 07/19/2021 1:04 PM EDT Images [...] Contact Information Primary Emergency Contact: Hina Thomas [facility] Relation: Brother/Sister Past Surgical History: Past Surgical History: Procedure Laterality Date ACHILLES TENDON SURGERY left BACK SURGERY L 4 and 5 1995, 1996 CERVICAL FUSION N/A 07/06/2021 POSTERIOR CERVICAL C1 LAMINECTOMY. LEFT C2 RHIZOTOMY, EXPLORATION OF EPIDURAL PHLEGMON performed byAlisia Cevallos DO at [facility] OR CHOLECYSTECTOMY EYE SURGERY [address] shunt for open angle glaucoma. MRI compatible- device is all silicone LAMINECTOMY 07/06/2021 Posterior C1, LEFT C2 RHIZOTOMY, EXPLORATION OF EPIDURAL PHLEGMON PICC INSERTION VASCULAR ACCESS TEAM 07/10/2021 SHOULDER SURGERY right TRACHEOSTOMY 07/30/2021 TRACHEOSTOMY N/A 07/30/2021 TRACHEOTOMY performed by Erica Santiago MD at [facility] OR UPPER GASTROINTESTINAL ENDOSCOPY N/A 07/02/2021 EGD ESOPHAGOGASTRODUODENOSCOPY performed by Hari Wagner MD at [facility] Endoscopy Immunization History: There is no immunization history on file for this patient. Active Problems: Patient Active Problem List Diagnosis Code Cellulitis of left finger L03.012 Altered mental state R41.82 Encephalitis G04.90 Encephalopathy G93.40 CIDP (chronic inflammatory demyelinating polyneuropathy) ([facility]) G61.81 Sepsis ([facility]) A41.9 Bacteremia R78.81 Hypothyroidism E03.9 Hypokalemia E87.6 Type 2 diabetes mellitus with diabetic polyneuropathy ([facility]) E11.42 Primary hypertension I10 Upper GI bleed K92.2 Non-intractable vomiting R11.10 Unintentional weight loss R63.4 Metabolic encephalopathy G93.41 MSSA (methicillin susceptible Staphylococcus aureus) septicemia ([facility]) A41.01 CRP elevated R79.82 Bandemia D72.825 Allergy to multiple antibiotics Z88.1 Pyogenic inflammation of bone ([facility]) M86.9 Acute intractable headache R51.9 Septic arthritis of cervical spine ([facility]) M46.52 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 G06.1 COVID U07.1 Hypomagnesemia E83.42 Normocytic anemia D64.9 Acute respiratory failure with hypoxemia ([facility]) J96.01 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 ACP (advance care [...] Dependent Dressing Dependent Toileting Dependent Feeding Dependent Piecer Dependent Med Delivery crushed and via right [...] Healing % 79 08/02/21 1537 Wound Assessment Denuded;[place]/red 08/10/21 1200 Drainage Amount Scant 08/10/21 1200 [...] Description Sanguinous 08/10/21 0400 Odor None 08/10/21 040 Shannan-incision Assessment Fragile;Excoriated 08/10/21 0400 Number of [...] Readmission: 24 Discharging to Facility/ Agency Name: [facility] Address: [address] [place] [address] Dialysis Facility (if applicable) Name: Address: Dialysis Schedule: Phone: Fax: Interactive Developer/Senior Technical Writer signature: ICIAN SECTION Prognosis: Fair Condition at Discharge: Stable Rehab Potential (if transferring to Rehab): Fair Recommended Labs or Other Treatments After Discharge: Recommend calling Neurosurgery Clinic to schedule surgery, tenatively 08/22/21. Recommend obtaining every other day CBC, BMP; Blood glucose every 6hours and nightly. Patient will require IV Nafcillin treatment until she receives surgery for osteomyelitis causing unstable C2 fracture. Patient should remain in C collar at all times. Continue tubefeeds for nutrition. Physician Certification: I certify the above information and transfer of Meg Georges is necessary for the continuing treatment of the diagnosis listed and that she requires [facility] Facility for less 30 days. Update Admission H&P: No change in H&P PHYSICIAN SIGNATURE: * Additional Instructions* Carlos Liu MD - 07/19/2021 Discharge with NG for now and re- evaluate swallow study after 2 weeks and decide on further PEG tube vs removal of NG. Continue naficillin 08/15/21 via PICC line. Continue oral kcl 40 meq 3 times a day. Follow with nephrology and PCP as outpatient. documented in this encounterBON [email or web address] Phone: 1(626) 429-661705-28-2022 History of Present illness Narrative* Kati Villarreal RN - 07/14/2021 2:33 PM EDT Called and spoke with Jess GARVIN and gave report. * Kati Villarreal RN - 07/14/2021 1:20 PM EDT Lunch tray provided - puree and thickened liquids. Pt sitting up and eating at this time. Denies further needs. * Kati Villarreal RN - 07/14/2021 6:25 AM EDT Called and updated sister, Hina with status. Pt accepted to [facility] pending. documented in this encounterBON [email or web address] Phone: [phone]) 565-325005-24-2022 History of Present illness Narrative* Vic Padilla MD - 07/10/2021 11:30 AM EDT Spoke with internal medicine resident regarding this patient. Patient can follow-up outpatient for concern of retention in the office. Gave information needed for this. Encouraged timed voids. If patient has POST void residual volumes greater than 400 then can recommend straight catheterization andhave the nursing staff teach the patient how to do so. If the patient continues to have greater than 400 on postvoid residual volumes does not want to learn how to straight catheterize then can placean indwelling [place]. Patient can be discharged today and be seen in office by urology. Jossie Padilla MD Urology * Hina Jemal HOLGER Sawyer - 07/10/2021 11:14 AM EDT Speech Language Pathology Speech Language Pathology [facility] Cognitive/Dysphagia Treatment Note Date: 07/10/2021 Patient s Name: Meg Georges Patient Active Problem List Diagnosis Code Cellulitis of left finger L03.012 Altered mental state R41.82 Encephalitis G04.90 Encephalopathy G93.40 CIDP (chronic inflammatory demyelinating polyneuropathy) ([facility]) G61.81 Sepsis ([facility]) A41.9 Bacteremia R78.81 Hypothyroidism E03.9 Hypokalemia E87.6 Type 2 diabetes mellitus with diabetic polyneuropathy ([facility]) E11.42 Primary hypertension I10 Upper GI bleed K92.2 Non-intractable vomiting R11.10 Unintentional weight loss R63.4 Acute metabolic encephalopathy G93.41 MSSA (methicillin susceptible Staphylococcus aureus) septicemia ([facility]) A41.01 CRP elevated R79.82 Bandemia D72.825 Allergy to multiple antibiotics Z88.1 Pyogenic inflammation of bone ([facility]) M86.9 Acute intractable headache R51.9 Acute osteomyelitis of cervical spine ([facility]) M46.22 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 G06.1 Pain: 0/10 Cognitive Treatment Treatment time: 9026-8025 Subjective: [] Alert [x] Cooperative [] Confused [...] min cues. Education provided and exercises left atbedside. Pt demonstrated difficulties with lingual ROM. Plan: [x] Continue ST services [] Discharge from ST: Discharge recommendations: [] Further therapy recommended at discharge.The patient should be able to tolerate at least 3 hours of therapy per day over 5 days or 15 hours over 7 days. [x] Further therapy recommended at discharge. [] No therapy recommended at discharge. Completed by Chaitanya Pratt Compressor Station Chief Engineer Clinician Co-signed byHina Sawyer M.S., CCC/PARTS CHASER * Rufus Argueta MD - 07/10/2021 7:11 AM EDT Images from the original note were not included. [facility] Internal Medicine Teaching Residency Program Inpatient Daily Progress Note Patient: Meg Georges Date of : 1965 Acct: [id number] Room: [facility][note 3]0146- Admit date: 06/28/2021 Today's date: 07/10/21 Number [...] neuropathy follows neurology. Presented to ED from fpc, found confused outside. Imaging negative. She complains [...] BMP: Recent Labs 07/08/21 0607/09/21 0532 07/10/21 034 NA 138 140 140 K 2.9* 3.9 [...] PLAN Assessment and Plan: Principal Problem: Sepsis ([facility]) Active Problems: Altered mental state Encephalitis Encephalopathy CIDP (chronic inflammatory demyelinating polyneuropathy) ([facility]) Bacteremia Hypothyroidism Hypokalemia Type 2 diabetes mellitus with diabetic polyneuropathy ([facility]) Primary hypertension Upper GI bleed Non-intractable vomiting Unintentional weight loss Acute metabolic encephalopathy MSSA (methicillin susceptible Staphylococcus aureus) septicemia ([facility]) CRP elevated Bandemia Allergy to multiple antibiotics Pyogenic inflammation of bone ([facility]) Acute intractable headache Acute osteomyelitis of cervical spine ([facility]) 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 [...] concern for osteomyelitis and possible source of MSSAbacteremia -XR left foot negative for osteomyelitis - [...] antihypertensives. Elevated troponins: Downtrended likely type II CA Hypokalemia: Repeat potassium level and replace if needed Left Vocal cord paralysis: Ongoing x 1 month. ENT on board. Plan for injection laryngoplasty for voice/swallowing improvement at some point. Passed swallow study. Diet: Easy to chew DVT ppx : Lovenox held GI ppx: None PT/OT/SW: Consulted Discharge Planning: In process Rufus Argueta MD Internal Medicine Resident, PGY- 1 [facility]; [place], [place] 07/10/2021, 7:18 AM Associated attestation - Silver Carmona MD - 07/10/2021 11:42 AM EDT Images from the original note were not included. Attending Physician Statement I have discussed the case, including pertinent history and exam findings with the resident and the team. I have seen and examined the patient and the coffey elements of the encounter have been performedby me. I agree with the assessment, plan and orders as documented by the resident. Review of Systems: In addition to the pertinent positives and negatives as stated within HPI and the review of systemsas documented in their notes, all other systems [...] Internal Medicine Residency Program 07/10/2021, 11:40 AM * Meka Crowe MD - 07/09/2021 7:52 PM EDT Images from the original note were not included. [facility] - Infectious diseases evaluation admission [...] line due to nafciline Infection Control Recommendations Portal Precautions Contact Isolation Antimicrobial Stewardship Recommendations Simplification of therapy Targeted therapy History of Present Illness: Initial history: Meg Georges is a 56 y.o.-year-old female presented to the ED for altered mental status. Patient iscurrently admitted under neurology service. Patient presented from a fpc after an episode of confusion overnight where she was found wandering outside her fpc. She had CT head done at outside facility which did not show any acute changes, telestroke was consulted for the concern of confusion, they recommended transfer to [facility] for MRI of the brain. BC SA MSSA and LP neg CRP elevated and WBc up - creat normal 06/29 mentally recovered Neck pain x 1 mo Left sole callus was infected x 2 months ago at the [facility] She gets her IvIg through a periph [...] all still +, hence suggest sx drainage iffeasible 07/04:EGD 07/02 + alan esophagitis - starting [...] C2 RHIZOTOMY, EXPLORATION OF EPIDURAL PHLEGMON performed byAlisia Cevallos DO at [facility] OR CHOLECYSTECTOMY EYE SURGERY [address] shunt for open angle glaucoma. MRI compatible- device is all silicone LAMINECTOMY 07/06/2021 Posterior C1, LEFT C2 RHIZOTOMY, EXPLORATION OF EPIDURAL PHLEGMON SHOULDER SURGERY right UPPER GASTROINTESTINAL ENDOSCOPY N/A 07/02/2021 EGD ESOPHAGOGASTRODUODENOSCOPY performed by Hari Wagner MD at [facility] Endoscopy Medications: levothyroxine 100 mcg Oral [...] Friends and Family: Not on file Attends Islam Services: Not on file Active Member of [...] Crowe MD Office: Perfect serve / office [phone] * Kam Loera, REBEKA - GROMMET WORKER - 07/09/2021 3:43 PM EDT Neurosurgery NATE/Resident Daily Progress Note Chief Complaint Patient presents with Altered Mental Status 07/09/2021 3:43 PM Chart reviewed. No acute events overnight. Pain well controlled. Tolerated nectar thick with purreddiet. Walked 4 steps with PT today. Afebrile. [...] 120 (H) 06/28/2021 Culture, Anaerobic and Aerobic [[id number]] Collected: 07/06/21 214 Updated: 07/09/21 0731 Specimen [...] in patients neurologic status. Kam Loera, BRIDGER 07/09/21 3:43 PM Associated attestation - Alisia Cevallos DO - 07/09/2021 3:58 PM EDT Neurosurgery attending: Patient seen 07/09/2021 I have reviewed the chart, studied the images, and examined the patient personally and agree with the NATE/Resident except with following addendum: POD 3 Hoarseness and pain significantly improved Drain Dced Collar Trend inflammatory marker, improving CRP X.Vaishali Cevallos DO Neurosurgeon * Chaitanya Terence - 07/09/2021 12:11 PM EDT Speech Language Pathology Speech Language Pathology [facility] Cognitive Treatment Note Date: 07/09/2021 Patient s Name: Meg Georges Diagnosis: Patient Active Problem List Diagnosis Code Cellulitis of left finger L03.012 Altered mental state R41.82 Encephalitis G04.90 Encephalopathy G93.40 CIDP (chronic inflammatory demyelinating polyneuropathy) ([facility]) G61.81 Sepsis ([facility]) A41.9 Bacteremia R78.81 Hypothyroidism E03.9 Hypokalemia E87.6 Type 2 diabetes mellitus with diabetic polyneuropathy ([facility]) E11.42 Primary hypertension I10 Upper GI bleed K92.2 Non-intractable vomiting R11.10 Unintentional weight loss R63.4 Acute metabolic encephalopathy G93.41 MSSA (methicillin susceptible Staphylococcus aureus) septicemia ([facility]) A41.01 CRP elevated R79.82 Bandemia D72.825 Allergy to multiple antibiotics Z88.1 Pyogenic inflammation of bone ([facility]) M86.9 Acute intractable headache R51.9 Acute osteomyelitis of cervical spine ([facility]) M46.22 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 G06.1 Pain: 8/10 Cognitive Treatment Treatment time: 7715-7061 Subjective: [x] Alert [x] Cooperative [] Confused [] Agitated [] Lethargic Objective/Assessment: Recall: Delayed recall; 1/4 increased to 2/4 with min verbal cue, 1/4 increased to 3/4 with min verbal cues Word list retention: Word placement; 04/27 increased to 10/28 with repetitions Functional memory: Paragraph facts; 3/14 increased to 8/14 with repetitions and min verbal cue Problem Solving/Reasoning: Category members: [place]; 2/8 increased to 4/8 with min-mod verbal cues, 9/10 increased to 10/10 with min verbal cue Other: Pt. Seen for O/M treatment program for dysphagia. Pt. Completed O/M exercises X 5-10 X 1 setwith min-mod verbal cues. Education provided re: compensatory [...] recommended at discharge. Completed by Chaitanya Pratt Compressor Station Chief Engineer Clinician Co-signed by Hina Sawyer M.S. CCC/PARTS CHASER * Franck Burnham PTA - 07/09/2021 10:11 AM EDT Physical Therapy Facility/Department: [address] STEP DOWN Daily Treatment Note Name: [...] past surgical history that includes Cholecystectomy; shoulder surgery;Achilles tendon surgery; back surgery; Upper gastrointestinal endoscopy (N/A, 07/02/2021); Eye surgery; and laminectomy (07/06/2021). Assessment Body Structures, Functions, Activity Limitations Requiring Skilled Therapeutic Intervention: Decreased functional mobility ;Decreased endurance;Decreased ROM;Decreased strength;Decreased safe awareness;Decreased balance;Decreased cognition;Vestibular Impairment;Decreased sensation;Decreased coordina tion;Increased pain Assessment: Pt presents with poor postural [...] training,Equipment evaluation, education, & procurement,Therapeutic activities,Cognitive/Perceptual training ,Patient/Caregiver education & training,Neuromuscular re-education,Vestibular rehab Safety Devices [...] progress notes indicate needs to mobilize . [place] thick liquids. Documentation of vocal cord paralysis. [...] Treatment Minutes: 38 Minutes Franck Burnham PTA * Rufus Argueta MD - 07/09/2021 7:12 AM EDT Images from the original note were not included. [facility] Internal Medicine Teaching Residency Program Inpatient Daily Progress Note Patient: Meg Georges Date of : 1965 Acct: [id number] Room: [address] [place] [address]- Admit date: 06/28/2021 Today's date: 07/09/21 Number [...] neuropathy follows neurology. Presented to ED from [facility]pc, found confused outside. Imaging negative. She complains [...] interval not displayed. BMP: Recent Labs 07/07/2134807/08/21 0617 07/09/21 0532 NA 140 138 140 [...] PLAN Assessment and Plan: Principal Problem: Sepsis ([facility]) Active Problems: Altered mental state Encephalitis Encephalopathy CIDP (chronic inflammatory demyelinating polyneuropathy) ([facility]) Bacteremia Hypothyroidism Hypokalemia Type 2 diabetes mellitus with diabetic polyneuropathy ([facility]) Primary hypertension Upper GI bleed Non-intractable vomiting Unintentional weight loss Acute metabolic encephalopathy MSSA (methicillin susceptible Staphylococcus aureus) septicemia ([facility]) CRP elevated Bandemia Allergy to multiple antibiotics Pyogenic inflammation of bone ([facility]) Acute intractable headache Acute osteomyelitis of cervical spine ([facility]) 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 [...] concern for osteomyelitis and possible source of MSSAbacteremia -XR left foot negative for osteomyelitis - [...] antihypertensives. Elevated troponins: Downtrended likely type II CA Hypokalemia: Repeat potassium level and replace if needed Left Vocal cord paralysis: Ongoing x 1 month. ENT on board. Plan for injection laryngoplasty for voice/swallowing improvement at some point. Passed swallow study. Diet: Easy to chew DVT ppx : Lovenox held GI ppx: None PT/OT/SW: Consulted Discharge Planning: In process Clark Iglesias MD Internal Medicine Resident, PGY-1 [facility]; [place], [place] 7:13 AM 07/09/2021 Please note that part of this chart was generated using voice recognition dictation software. Although every effort was made to ensure the accuracy of this automated brownfield redevelopment site manager, some errors in brownfield redevelopment site manager may have occurred. Associated attestation - Johnny Robledo MD - 07/09/2021 3:25 PM EDT Attending Supervising Physician s Attestation Statement I have seen and examined Meg Georges and the coffey elements of all parts of the encounter have been performed by me. I agree with the assessment, plan and orders as documented by the Advanced PracticeProvider. I discussed the findings and plans with the resident physician and agree as documented intheir note . In addition to the pertinent positives and negatives as stated within HPI and the review of systemsas documented in the notes, all other systems were reviewed when able to and are reported negative. Additional Comments: no issues overnight. Drain in place, management per surgery. Repeat cultures remain negative. Antibiotics per ID. Dc planning to rehab when cleared by all services * Kam Loera, 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 - 07/08/2021 11:09 AM EDT Neurosurgery NATE/Resident Daily Progress Note Chief Complaint [...] 120 (H) 06/28/2021 Culture, Anaerobic and Aerobic [[id number]] Collected: 07/06/212140 Updated: 07/08/21820 Specimen Type: Swab [...] infection Jose Alfredo Patiño DO Neurosurgery O: [phone] C: [phone] * Edel Chapman, PT - 07/08/2021 9:44 AM EDT Physical Therapy Facility/Department: [address] STEP DOWN Physical Therapy Reassessment Name: [...] past surgical history that includes Cholecystectomy; shoulder surgery;Achilles tendon surgery; back surgery; Upper gastrointestinal endoscopy (N/A, 07/02/2021); Eye surgery; and laminectomy (07/06/2021). Assessment Body Structures, Functions, Activity Limitations Requiring Skilled Therapeutic Intervention: Decreased functional mobility ;Decreased endurance;Decreased ROM;Decreased strength;Decreased safe awareness;Decreased balance;Decreased cognition;Vestibular Impairment;Decreased sensation;Decreased coordina tion;Increased pain Assessment: Unable to ambulate away from [...] training,Equipment evaluation, education, & procurement,Therapeutic activities,Cognitive/Perceptual training ,Patient/Caregiver education & training,Neuromuscular re-education,Vestibular rehab Safety Devices [...] to remove while resting in bed. 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 MD progress notes indicate needs to mobilize . [place] thick liquids. Documentation of vocal cord paralysis. 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 Numbto light touch up to proximal leg. She is scratching at her left lateral thigh with jagged nails. Wr iter rubbed some lotion on the area and [...] has foot drop, cannot effectively right herself againstposterior losses of balance. Neuropathy prevents her feeling [...] move through 1/5 normal motion actively, heel slides,assisted SLR. AM-[facility] Score -[facility] Inpatient Mobility Raw Score : 14 (07/08/21915) -[facility] Inpatient T-Scale Score : 38.1 (07/08/21915) Mobility Inpatient CMS 0-100% Score: 61.29 (07/08/21915) Mobility Inpatient [facility] G-Code Modifier : CL (07/08/21915) Goals Short [...] Treatment Minutes: 30 Minutes Edel Chapman PT * Clark Iglesias MD - 07/08/2021 7:23 AM EDT Images from the original note were not included. [facility] Internal Medicine Teaching Residency Program Inpatient Daily Progress Note Patient: Meg Georges Date of : 1965 Acct: [id number] Room: 0146/0146-01 Admit date: 06/28/2021 Today's date: [...] neuropathy follows neurology. Presented to ED from fpc, found confused outside. Imaging negative. She complains [...] mL/hr, PRN Diagnostic Labs: CBC: Recent Labs 07/06/2175107/06/21164007/06/21192107/07/21 03407/08/21 0617 WBC 7.7 -- -- 11.1 11.4* RBC 3.27* -- -- 3.34* 2.51* HGB 8.5* < > 9.9* 9.2* 6.9* HCT 27.5* < > 30.6* 27.9* 21.5* MCV 84.1 -- -- 83.5 85.7 RDW 18.2* -- -- 17.2* 18.6* PLT 378 -- -- 372 328 < > = values in this interval not displayed. BMP: Recent Labs 07/06/2175107/06/21164007/06/21192107/07/21 0349 07/08/21 0617 NA 133* < > 140 140 [...] PLAN Assessment and Plan: Principal Problem: Sepsis ([facility]) Active Problems: Altered mental state Encephalitis Encephalopathy CIDP (chronic inflammatory demyelinating polyneuropathy) ([facility]) Bacteremia Hypothyroidism Hypokalemia Type 2 diabetes mellitus with diabetic polyneuropathy ([facility]) Primary hypertension Upper GI bleed Non-intractable vomiting Unintentional weight loss Acute metabolic encephalopathy MSSA (methicillin susceptible Staphylococcus aureus) septicemia ([facility]) CRP elevated Bandemia Allergy to multiple antibiotics Pyogenic inflammation of bone (HCC) Acute intractable headache Acute osteomyelitis of cervical spine ([facility]) 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 [...] concern for osteomyelitis and possible source of MSSAbacteremia -XR left foot negative for osteomyelitis - [...] antihypertensives. Elevated troponins: Downtrended likely type II CA Hypokalemia: Repeat potassium level and replace if needed Left Vocal cord paralysis: Ongoing x 1 month. ENT on board. Plan for injection laryngoplasty for voice/swallowing improvement at some point. Passed swallow study. Diet: Easy to chew DVT ppx : Lovenox held GI ppx: None PT/OT/SW: Consulted Discharge Planning: In process Clark Iglesias MD Internal Medicine Resident, PGY-1 [facility]; [place], [place] 7:24 AM 07/08/2021 Please note that part of this chart was generated using voice recognition dictation software. Although every effort was made to ensure the accuracy of this automated brownfield redevelopment site manager, some errors in brownfield redevelopment site manager may have occurred. Associated attestation - Johnny Robledo MD - 07/08/2021 2:03 PM EDT Attending Supervising Physician s Attestation Statement I have seen and examined Meg Georges and the coffey elements of all parts of the encounter have been performed by me. I agree with the assessment, plan and orders as documented by the Advanced PracticeProvider. I discussed the findings and plans with the resident physician and agree as documented intheir note . In addition to the pertinent positives and negatives as stated within HPI and the review of systemsas documented in the notes, all other systems were reviewed when able to and are reported negative. Additional Comments: pain tolerable, repeat cultures negative so far. Working on placement * Meka Crowe MD - 07/07/2021 11:36 PM EDT Images from the original note were not included. [facility] - Infectious diseases evaluation admission [...] the rise despite tx Infection Control Recommendations Portal Precautions Contact Isolation Antimicrobial Stewardship Recommendations Simplification of therapy Targeted therapy History of Present Illness: Initial history: Meg Georges is a 56 y.o.-year-old female presented to the ED for altered mental status. Patient iscurrently admitted under neurology service. Patient presented from a fpc after an episode of confusion overnight where she was found wandering outside her fpc. She had CT head done at outside facility which did not show any acute changes, telestroke was consulted for the concern of confusion, they recommended transfer to [facility] for MRI of the brain. BC SA MSSA and LP neg CRP elevated and WBc up - creat normal 06/29 mentally recovered Neck pain x 1 mo Left sole callus was infected x 2 months ago at the [facility] She gets her IvIg through a periph [...] all still +, hence suggest sx drainage iffeasible 07/04:EGD 07/02 + alan esophagitis - starting [...] ESOPHAGOGASTRODUODENOSCOPY performed by Hari Wagner MD at [facility] Endoscopy Medications: sodium chloride flush 5-40 [...] Friends and Family: Not on file Attends Islam Services: Not on file Active Member of [...] Differential: Recent Labs 07/06/21 0752 07/06/21 1641 07/06/21192107/07/21 0349 WBC 7.7 -- -- 11.1 HGB 8.5* < > 9.9* 9.2* HCT 27.5* < > 30.6* 27.9* PLT 378 -- -- 372 LYMPHOPCT 20* -- -- 7* MONOPCT 6 -- -- 5 < > = values in this interval not displayed. BMP: Recent Labs 07/05/21 0517 07/05/21 1058 07/06/21 0752 07/06/21 1641 07/06/21192107/07/21 0349 NA 138 -- 133* < > [...] Crowe MD Office: Perfect serve / office [phone] * Andrea Morel APRN - [facility] - 07/07/2021 12:11 PM EDT Neurology Nurse Practitioner Progress Note INTERVAL HISTORY: [...] who was admitted as a transfer from [facility] ED on 06/28/2021 for AMS. As per medical records, patient was found wandering outside her fpc. She was taken to [facility] ED with acute lethargy and confusion. Patient received Narcan with no improvement. Patient was evaluated by Dr. Helton through telestroke; NIH score was 1. CT head-motion degraded but no obvious acute stroke. Patient was transferred to [facility] for further evaluation. She was initially admitted under neurology service. 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 Patient has been receiving IVIGinfusions every 2-week and being follow-up by neurology [...] ESOPHAGOGASTRODUODENOSCOPY performed by Hari Wagner MD at [facility] Endoscopy PHYSICAL EXAM: Blood pressure (!) [...] TSH 0.15 (L) 06/28/2021 INR 1.2 06/28/2021 [id number] 06/28/2016 LABA1C 9.4 (H) 06/28/2021 LABMICR [...] to ensure the accuracy of this automated brownfield redevelopment site manager, some errors in brownfield redevelopment site manager may have occurred. * REBEKA Uriostegui CNP - 07/07/2021 10:39 AM EDT Neurosurgery NATE/Resident Daily Progress Note Chief Complaint [...] 120 (H) 06/28/2021 Culture, Anaerobic and Aerobic [[id number]] Collected: 07/06/212140 Updated: 07/06/212331 Specimen Type: Swab [...] Therapies Jose Alfredo Patiño DO Neurosurgery O: [phone] C: [phone] * Rufus Argueta MD - 07/07/2021 7:15 AM EDT Images from the original note were not included. [facility] Internal Medicine Teaching Residency Program Inpatient Daily Progress Note Patient: Meg Georges Date of : 1965 Acct: [id number] Room: 0146/0146-01 Admit date: 06/28/2021 Today's date: [...] neuropathy follows neurology. Presented to ED from fpc, found confused outside. Imaging negative. She complains [...] Septum was midline, mucosa was without erythema, exudatesor cobblestoning. No thrush was noted. Neck: Supple without thyromegaly. No palpable lymphadenopathy. Generalized tenderness anterior neck. No elevated JVP. Trachea was midline. Respiratory: Chest was symmetrical without dullness to percussion. Breath sounds bilaterally were clear to auscultation. There were no wheezes, rhonchi or rales. There is no intercostal retraction oruse of accessory muscles. No egophony noted. Cardiovascular: [...] mL, PRN tiZANidine, 2 mg, Q8H PRN xiunzqyvpn-ulbtwsuebefor-xpsmnkqa, 1 tablet, Q4H PRN hydrALAZINE, 10 mg, [...] interval not displayed. BMP: Recent Labs 07/05/21 0507/05/21 1058 07/06/21 07507/06/21164007/06/21192107/07/21 0349 NA 138 -- 133* 140 140 [...] examination and limitations the study was made toand acknowledged by Dr. Boothe in the emergency [...] concern for osteomyelitis and possible source of MSSAbacteremia -XR left foot negative for osteomyelitis - [...] antihypertensives. Elevated troponins: Downtrended likely type II CA Hypokalemia: K+ 3.9 today. Repeat potassium level and replace if needed Left Vocal cord paralysis: Ongoing x 1 month. ENT on board. Plan for injection laryngoplasty for voice/swallowing improvement at some point. Passed swallow study. Rufus Argueta MD Internal Medicine Resident, PGY- 1 [facility]; [place], [place] 07/07/2021, 7:16 AM Associated attestation - Johnny Robledo MD - 07/07/2021 2:08 PM EDT Attending Supervising Physician s Attestation Statement I have seen and examined Meg Georges and the coffey elements of all parts of the encounter have been performed by me. I agree with the assessment, plan and orders as documented by the Advanced PracticeProvider. I discussed the findings and plans with the resident physician and agree as documented intheir note . In addition to the pertinent positives and negatives as stated within HPI and the review of systemsas documented in the notes, all other systems were reviewed when able to and are reported negative. Additional Comments: OR yesterday per NS. Pain controlled. Will likely need placement. Follow up repeat cultures for MSSA clearance * ANNA Rivera - 07/06/2021 4:20 PM EDT Images from the original note were not included. Occupational Therapy [facility] Occupational Therapy Not Seen Note DATE: 07/06/2021 NAME: Meg Georges : 1965 Patient not seen this date for Occupational Therapy due to: Surgery/Procedure: POSTERIOR CERVICAL C1-2 LAMINECTOMY Next Scheduled Treatment: 07/07 * Chaitanya Pratt - 07/06/2021 11:50 AM EDT Speech Language Pathology Speech Language Pathology [facility] Cognitive/Dysphagia Treatment Note Date: 07/06/2021 Patient s Name: Meg Georges Diagnosis: Patient Active Problem List Diagnosis Code Cellulitis of left finger L03.012 Altered mental state R41.82 Encephalitis G04.90 Encephalopathy G93.40 CIDP (chronic inflammatory demyelinating polyneuropathy) ([facility]) G61.81 Sepsis ([facility]) A41.9 Bacteremia R78.81 Hypothyroidism E03.9 Hypokalemia E87.6 Type 2 diabetes mellitus with diabetic polyneuropathy ([facility]) E11.42 Primary hypertension I10 Upper GI bleed K92.2 Non-intractable vomiting R11.10 Unintentional weight loss R63.4 Acute metabolic encephalopathy G93.41 MSSA (methicillin susceptible Staphylococcus aureus) septicemia ([facility]) A41.01 Elevated C-reactive protein (CRP) R79.82 Bandemia D72.825 Allergy to multiple antibiotics Z88.1 Pyogenic inflammation of bone ([facility]) M86.9 Acute intractable headache R51.9 Pain: 0/10 [...] 12/12 with min verbal cues Category members: [place]; 8/10 increased to 10/10 with min verbal cues Wrong category: [place]; 5/10 increased to 10/10 with repetitions and [...] recommended at discharge. Completed by Chaitanya Pratt Compressor Station Chief Engineer Clinician Co-signed by Robbie Mckeon M.A.CCC/PARTS CHASER * Meka Crowe MD - 07/06/2021 11:03 AM EDT Images from the original note were not included. [facility] - Infectious diseases evaluation admission [...] the rise despite tx Infection Control Recommendations Portal Precautions Contact Isolation Antimicrobial Stewardship Recommendations Simplification of therapy Targeted therapy History of Present Illness: Initial history: Meg Georges is a 56 y.o.-year-old female presented to the ED for altered mental status. Patient iscurrently admitted under neurology service. Patient presented from a fpc after an episode of confusion overnight where she was found wandering outside her fpc. She had CT head done at outside facility which did not show any acute changes, telestroke was consulted for the concern of confusion, they recommended transfer to [facility] for MRI of the brain. BC SA MSSA and LP neg CRP elevated and WBc up - creat normal 06/29 mentally recovered Neck pain x 1 mo Left sole callus was infected x 2 months ago at the [facility] She gets her IvIg through a periph [...] all still +, hence suggest sx drainage iffeasible 07/04:EGD 07/02 + alan esophagitis - starting [...] ESOPHAGOGASTRODUODENOSCOPY performed by Hari Wagner MD at [facility] Endoscopy Medications: sodium chloride flush 5-40 [...] provider] carvedilol 25 mg Oral BID WC [Apr] sodium chloride flush 5-40 mL IntraVENous 2 times per day [Held by provider] enoxaparin 40 mg SubCUTAneous Daily [Apr] latanoprost 1 drop Both Eyes Nightly [Apr] insulin lispro 0-12 Units SubCUTAneous TID WC [Apr] insulin lispro 0-6 Units SubCUTAneous Nightly Social [...] Friends and Family: Not on file Attends Islam Services: Not on file Active Member of [...] following labs: CBC with Differential: Recent Labs 05/51607/05/21 0517 07/06/21 0752 07/06/21 07507/06/21164007/06/211921 WBC 10.0 -- 7.7 -- -- -- HGB 7.9* < > 8.5* < > 6.7* 9.9* HCT 24.6* < > 27.5* < > 21.0* 30.6* PLT 341 -- 378 -- -- -- LYMPHOPCT 26 -- 20* -- -- -- MONOPCT 4 -- 6 -- -- -- < > = values in this interval not displayed. BMP: Recent Labs 07/05/21 0507/05/21 1058 07/06/2175107/06/21164007/06/211921 NA 138 -- 133* 140 140 K [...] Crowe MD Office: Perfect serve / office [phone] * Jaspal Bonner MD - 07/06/2021 7:56 AM EDT [facility] Neurology IN-PATIENT SERVICE [facility] Progress Note Date: 07/06/2021 Patient name: Meg Georges Date of admission: 06/28/2021 11:59 AM Account: [id number] Date of : 1965 PCP: Neri Santa Sr, DO Room: [address] [place] [address] Code Status: Full Code Chief Complaint: Chief [...] She was found wandering outside of her fpc. She was admitted tothe medicine team and was found to have sepsis as well as a GI bleed. Neurology was consulted due to altered mentation and headache. CT head was done and was unremarkable. CTA head neck unremarkable.EEG was normal. Spinal tap was done in the ED with CSF studies negative for meningitis or COMMERCIAL PEST CONTROL TECHNICIAN infection. For her headache she was placed [...] ESOPHAGOGASTRODUODENOSCOPY performed by Hari Wagner MD at [facility] Endoscopy Medications Prior to Admission: Prior [...] years ago. Her smoking use included cigarettes. Shequit after 20.00 years of use. She has [...] % Final Assessment : Primary Problem Sepsis ([facility]) Active Hospital Problems Diagnosis Date Noted Elevated C-reactive protein (CRP) [R79.82] Priority: Medium Bandemia [D72.825] Priority: Medium Allergy to multiple antibiotics [Z88.1] Priority: Medium Pyogenic inflammation of bone (HCC) [M86.9] Priority: Medium Acute intractable headache [R51.9] Priority: Medium Acute metabolic encephalopathy [G93.41] 06/30/2021 Priority: Medium MSSA (methicillin susceptible Staphylococcus aureus) septicemia ([facility]) [A41.01] 06/30/2021 Priority: Medium Upper GI bleed [K92.2] Priority: Medium Non-intractable vomiting [R11.10] Priority: Medium Unintentional weight loss [R63.4] Priority: Medium Sepsis (HCC) [A41.9] 06/29/2021 Priority: Medium Bacteremia [R78.81] 06/29/2021 Priority: Medium Hypothyroidism [E03.9] 06/29/2021 Priority: Medium Hypokalemia [E87.6] 06/29/2021 Priority: Medium Type 2 diabetes mellitus with diabetic polyneuropathy ([facility]) [E11.42] 06/29/2021 Priority: Medium Primary hypertension [I10] 06/29/2021 Priority: Medium Encephalopathy [G93.40] Priority: Medium CIDP (chronic inflammatory demyelinating polyneuropathy) ([facility]) [G61.81] Priority: Medium Altered mental state [R41.82] [...] On nafcillin -CSF studies are negative for COMMERCIAL PEST CONTROL TECHNICIAN infection. -Continue Depakene 250mg BID for headache. [...] cord and attempt drainage of epidural abscess possiblyleft C2 rhizotomy to treat her severe occipital [...] AM Copy sent to Dr. Neri Santa, , Associated attestation - Pawan Dutton DO - 07/06/2021 4:51 PM EDT Attending Physician Statement: I have discussed the case of Meg Georges, including pertinent history and exam findings with the resident. I have seen and examined the patient and the coffey elements of the encounter have been performed by me. I have reviewed medications, clinical laboratory, imaging and other diagnostic tests withthe residents. I agree with the assessment, plan and orders as documented by the resident with changes made to the note as needed. MRI brain showing abnormal signal changes surrounding the clivus and dens consistent with patient'sknown osteomyelitis. She is going to the OR today by neurosurgery for laminectomy and drainage of abscess. We will follow. Pawan Dutton DO 07/06/2021 4:50 PM * Rufus Argueta MD - 07/06/2021 7:40 AM EDT Images from the original note were not included. [facility] Internal Medicine Teaching Residency Program Inpatient Daily Progress Note Patient: Meg Georges Date of : 1965 Acct: [id number] Room: 0146/0146-01 Admit date: 06/28/2021 Today's date: [...] neuropathy follows neurology. Presented to ED from fpc, found confused outside. Imaging negative. She complains [...] Septum was midline, mucosa was without erythema, exudatesor cobblestoning. No thrush was noted. Neck: Supple without thyromegaly. No palpable lymphadenopathy. Generalized tenderness anterior neck. No elevated JVP. Trachea was midline. Respiratory: Chest was symmetrical without dullness to percussion. Breath sounds bilaterally were clear to auscultation. There were no wheezes, rhonchi or rales. There is no intercostal retraction oruse of accessory muscles. No egophony noted. Cardiovascular: [...] mL, PRN tiZANidine, 2 mg, Q8H PRN xjitmikyww-atzidlecgaewd-ojmobque, 1 tablet, Q4H PRN hydrALAZINE, 10 mg, [...] Diagnostic Labs: CBC: Recent Labs 07/03/21 1637 05/1831507/05/21516 WBC -- 10.4 10.0 RBC -- 2.79* 2.98* HGB 7.8* 7.4* 7.9* HCT 24.2* 22.8* 24.6* MCV -- 81.7* 82.6 RDW -- 16.9* 17.5* PLT -- 231 341 BMP: Recent Labs 07/04/2131507/05/21 0507/05/21 1058 NA 138 138 -- K 3.5* [...] examination and limitations the study was made toand acknowledged by Dr. Boothe in the emergency [...] concern for osteomyelitis and possible source of MSSAbacteremia -XR left foot negative for osteomyelitis - [...] antihypertensives. Elevated troponins: Downtrended likely type II CA Hypokalemia: K+ 3.2 today. Likely due to diarrhea. Repeat potassium level and replace if needed Left Vocal cord paralysis: Ongoing x 1 month. ENT on board. Plan for injection laryngoplasty for voice/swallowing improvement at some point. Passed swallow study. Rufus Argueta MD Internal Medicine Resident, PGY- 1 [facility]; [place], [place] 07/06/2021, 7:41 AM Associated attestation - Johnny Robledo MD - 07/06/2021 1:45 PM EDT Attending Supervising Physician s Attestation Statement I have seen and examined Meg Georges and the coffey elements of all parts of the encounter have been performed by me. I agree with the assessment, plan and orders as documented by the Advanced PracticeProvider. I discussed the findings and plans with the resident physician and agree as documented intheir note . In addition to the pertinent positives and negatives as stated within HPI and the review of systemsas documented in the notes, all other systems were reviewed when able to and are reported negative. Additional Comments: NS planning OR today, on IV abx per ID * Mary Acosta MS, RD, LD - 07/05/2021 3:58 PM EDT Comprehensive Nutrition Assessment Type and Reason for Visit: Initial (Length of stay) Nutrition Recommendations/Plan: 1. Recommend Easy to Chew diet with mildly thick liquids per PARTS CHASER 2. Send Magic Cup ONS with meals Nutrition Assessment: Pt made NPO for MBSS d/t concern for aspiration. PARTS CHASER recommending easy to chew and mildly thick liquids. Drowsy this morning. Did not eat much of meals today. Will add ONS in an attempt to support POintake. Only stated weight available this admission. Nutrition Related Findings: meds/labs reviewed Wound Type: Diabetic Ulcer (L foot) Current Nutrition Intake & Therapies: Average Meal Intake: 1-25% (Observed) Average Supplements Intake: None Ordered ADULT DIET; Easy to Chew; Mildly Thick ([place]) Anthropometric Measures: Height: 5' 5 (165.1 cm) [place] Body Weight (IBW): 125 lbs (57 kg) Current Body Weight: 145 lb (65.8 kg), 116 % IBW. Weight Source: Stated Current BMI (kg/m2): 24.1 BMI Categories: Normal Weight (BMI 18.5-24.9) Estimated Daily Nutrient Needs: Energy Requirements Based On: Kcal/kg Weight Used for Energy Requirements: Current Energy (kcal/day): 4348-6293 kcals/day Weight Used for Protein Requirements: Current [...] determine Mary Acosta MS, RD, LD Contact: [phone] * Meka Crowe MD - 07/05/2021 2:14 PM EDT Images from the original note were not included. [facility] - Infectious diseases evaluation admission [...] the rise despite tx Infection Control Recommendations Portal Precautions Contact Isolation Antimicrobial Stewardship Recommendations Simplification of therapy Targeted therapy History of Present Illness: Initial history: Meg L Bays is a 56 y.o.-year-old female presented to the ED for altered mental status. Patient iscurrently admitted under neurology service. Patient presented from a fpc after an episode of confusion overnight where she was found wandering outside her fpc. She had CT head done at outside facility which did not show any acute changes, telestroke was consulted for the concern of confusion, they recommended transfer to [facility] for MRI of the brain. BC SA MSSA and LP neg CRP elevated and WBc up - creat normal 06/29 mentally recovered Neck pain x 1 mo Left sole callus was infected x 2 months ago at the [facility] She gets her IvIg through a periph [...] all still +, hence suggest sx drainage iffeasible 07/04:EGD 07/02 + alan esophagitis - starting [...] ESOPHAGOGASTRODUODENOSCOPY performed by Hari Wagner MD at [facility] Endoscopy Medications: gabapentin 200 mg Oral [...] Friends and Family: Not on file Attends Islam Services: Not on file Active Member of [...] 26 MONOPCT 5 4 BMP: Recent Labs 07/04/2131507/04/2131507/05/21 0507/05/21 1058 NA 138 -- 138 -- K [...] Negrete MD Office: Perfect serve / office [phone] I have discussed the care of the patient, including pertinent history and exam findings, with the resident. I have seen and examined the patient and the coffey elements of all parts of the encounter have been performed by me. I agree with the assessment, plan and orders as documented by the resident. Meka Crowe, Infectious Diseases * Franck Burnham PTA - 07/05/2021 1:52 PM EDT Images from the original note were not included. Physical Therapy Physical Therapy Cancel Note DATE: 07/05/2021 NAME: Meg Georges : 1965 Patient not seen this date for Physical Therapy due to: Other: Pt currently out of room at this time, Will check back as able. * Tami Vega MD - 07/05/2021 10:37 AM EDT Images from the original note were not included. [facility] Internal Medicine Teaching Residency Program Inpatient Daily Progress Note Patient: Meg Georges Date of : 1965 Acct: [id number] Room: 0146/0146-01 Admit date: 06/28/2021 Today's date: [...] neuropathy follows neurology. Presented to ED from fpc, found confused outside. Imaging negative. She complains [...] 5' 5 (1.651 m) Wt 145 lb (65.8kg) LMP 12/02/2011 SpO2 96% BMI 24.13 kg/m [...] Septum was midline, mucosa was without erythema, exudatesor cobblestoning. No thrush was noted. Neck: Supple without thyromegaly. No palpable lymphadenopathy. Generalized tenderness anterior neck. No elevated JVP. Trachea was midline. Respiratory: Chest was symmetrical without dullness to percussion. Breath sounds bilaterally were clear to auscultation. There were no wheezes, rhonchi or rales. There is no intercostal retraction oruse of accessory muscles. No egophony noted. Cardiovascular: [...] mL, PRN tiZANidine, 2 mg, Q8H PRN zefdvvvynl-fjnwpbfbvrsdo-hronahrh, 1 tablet, Q4H PRN hydrALAZINE, 10 mg, [...] examination and limitations the study was made toand acknowledged by Dr. Boothe in the emergency [...] concern for osteomyelitis and possible source of MSSAbacteremia -XR left foot negative for osteomyelitis - [...] controlled Elevated troponins: Downtrended likely type II CA -echo done Hypokalemia: K+ 3.1 today. On daily 40 replacement. Repeat potassium level and replace if needed Left Vocal cord paralysis: Ongoing x 1 month. ENT on board. Plan for injection laryngoplasty for voice/swallowing improvement at some point. Passed swallow study. Tami Vega MD Internal Medicine Resident, PGY- 2 [facility]; [place], [place] 07/05/2021, 10:37 AM Associated attestation - Johnny Robledo MD - 07/05/2021 4:07 PM EDT Attending Supervising Physician s Attestation Statement I have seen and examined Meg Georges and the coffey elements of all parts of the encounter have been performed by me. I agree with the assessment, plan and orders as documented by the Advanced PracticeProvider. I discussed the findings and plans with the resident physician and agree as documented intheir note . In addition to the pertinent positives and negatives as stated within HPI and the review of systemsas documented in the notes, all other systems were reviewed when able to and are reported negative. Additional Comments: blood cultures remain positive, possible surgical intervention per NS, patientundecided. Continue antibiotics per ID * Sindy Sunshine APRN - GROMMET WORKER - 07/05/2021 10:27 AM EDT Images from the original note were not included. NEUROLOGY INPATIENT PROGRESS NOTE 07/05/2021 Current Exam: Chart reviewed. Discussed with RN. Eye implant is MRI compatible; MRI cervical spine ordered by neurosurgery showing osteomyelitis of the odontoid process extending into the body of C2 as well as theinferior portion of the clivus with moderate surrounding inflammation at the C1-C2 articulations compatible with surrounding phlegmon. There is also suspected stable tiny ventral epidural abscess andstable moderate narrowing of the spinal canal identified [...] She was found wandering outside of her fpc. She was admitted to the medicine team and was found to have sepsisas well as a GI bleed. Neurology was consulted due to altered mentation and headache. CT head was done and was unremarkable. CTA head neck unremarkable. EEG was normal. Spinal tap was done in the ED with CSF studies negative for meningitis or COMMERCIAL PEST CONTROL TECHNICIAN infection. For her headache she was placed [...] ESOPHAGOGASTRODUODENOSCOPY performed by Hari Wagner MD at [facility] Endoscopy Social History: Meg Georges reports [...] 5' 5 (1.651 m) Wt 145 lb (65.8kg) LMP 12/02/2011 SpO2 96% BMI 24.13 kg/m Blood pressure range: Systolic (24hrs), Av , Min:114 , Max:148 ; Diastolic (24hrs), Av, Min:61, Max:78 Review of Systems: Constitutional Negative for fever and chills HEENT Negative for ear discharge, ear pain, nosebleed. + headache with cervical neck pain, + hoarsevoice Eyes Negative for photophobia, pain and discharge [...] tested Data: Lab Results: CBC: Recent Labs 07/03/2143807/03/2143807/03/21 1637 07/04/2131507/05/21 0517 WBC 13.6* -- -- 10.4 10.0 HGB 8.4* < > 7.8* 7.4* 7.9* PLT 261 -- -- 231 341 < > = values in this interval not displayed. BMP: Recent Labs 07/03/2143807/03/2143807/03/21 1637 07/04/216 07/05/21 0517 NA 134* -- -- 138 [...] LABA1C 9.4 (H) 06/28/2021 LABMICR 7 06/25/2013 [id number] 06/28/2016 Diagnostic data reviewed: CT HEAD [...] of CIDP -CSF studies are negative for COMMERCIAL PEST CONTROL TECHNICIAN infection -Continue Depakene 250mg BID for headache [...] to ensure the accuracy of this automated brownfield redevelopment site manager, some errors in brownfield redevelopment site manager may have occurred. * REBEKA Rolon NP - 07/05/2021 6:27 AM EDT Neurosurgery NATE/Resident Daily Progress Note CC: Chief [...] was performed without and with the administration ofintravenous contrast. COMPARISON: CT cervical spine 06/29/2021 HISTORY: ORDERING SYSTEM PROVIDED HISTORY: Osteo C1-2 TECHNOLOGIST PROVIDED HISTORY: Osteo C1-2 Reason for Exam: Osteo C1-2 FINDINGS: BONES/ALIGNMENT: There is normal alignment of the spine. The vertebral body heights are maintained. Noacute fracture is identified. Mild central canal and spinal canal stenosis is identified. Moderate degenerative endplate changes are identified at C6-C7. Abnormal edema is present within the odontoidprocess extending into the body of C2. There is surrounding inflammation. Soft tissue surrounding the C1-C2 articulation is identified likely representing phlegmon from osteomyelitis at C2. Tiny ventral epidural fluid collection is identified at C1 measuring 0.9 x 0.3 cm. This finding likely represents a small epidural abscess. Moderate central canal stenosis is identified at the foramen magnum pa rtially due to the inflammatory changes posterior to the odontoid process as well as congenitally narrow spinal canal. Additional mild edema enhancement is identified within the clivus at the inferior aspect. SPINAL CORD: No abnormal cord signal is seen. SOFT TISSUES: Significant surrounding enhancement is identified at the C1-C2 articulation compatible with inflammation/phlegmon. C2- C3: There isno significant disc protrusion, spinal canal stenosis or [...] odontoid process, body of C2 and inferior portionof clivus, ventral epidural abscess - Neuro checks per floor protocol - recommend NPO at this time until swallow eval completed - Dr Cevallos to discuss options regarding Abx vs surgical Please contact neurosurgery with any changes in patients neurologic status. 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 All questions were answered and I was asked proceed with surgery Likely OR in AM unless sudden neurological deterioration X.Vaishali Cevallos DO Neurosurgeon * Maggie Block - 07/04/2021 4:29 PM EDT Occupational Therapy Facility/Department: [address] [place] [address] Occupational Therapy Initial Assessment Name: Meg Georges : 1965 Date of Service: 07/04/2021 Chief Complaint Patient presents with Altered Mental Status Discharge Recommendations: Patient would benefit from continued therapy after discharge. Patient is currently unsafe to returnto prior living arrangements without 24 hour assistance. OT Equipment Recommendations Equipment Needed: Yes. Equipment recommendations listed below are based on what the patient would need if they were able to return to prior living arrangements at the time of discharge. Mobility Devices: ADL Assistive Devices Walker: Rolling ADL Assistive Devices: Long-handled Sponge;Long-handled Shoe Horn;Medical Physics Professor;Sock- Aid Hard Patient Diagnosis(es): The primary encounter diagnosis [...] past surgical history that includes Cholecystectomy; shoulder surgery;Achilles tendon surgery; back surgery; and Upper gastrointestinal endoscopy (N/A, 07/02/2021). Assessment Performance deficits / Impairments: Decreased functional mobility ;Decreased ADL status;Decreased strength;Decreased endurance;Decreased cognition;Decreased safe awareness;Decreased balance;Decreasedhigh-level IADLs Assessment: Pt agreeable to OT eval this date. Pt completes bed mobility sup<>sit with SBA and VCs for log roll technique. Pt sat unsupported for ~45 min. total during session (EOB and toilet.)Pt comlpetes dynamic sitting balance with SBA and [...] endurance, ADLs, and IADLs. Pt would benefit fromcontinued OT services this date to increase independence and safety during self-care and functionalmobility. 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 A for standing balance duringpants management d/t decreased balance. Activity Tolerance Activity [...] Hand Dominance Hand Dominance: Right AM-PAC Score AM-[facility] Inpatient Daily Activity Raw Score: 19 (07/04/21 1630) AM-PAC Inpatient ADL T-Scale Score : 40.22 (07/04/21 1630) ADL Inpatient CMS 0-100% Score: 42.8 (05/18/22 1630) ADL Inpatient CMS G-Code Modifier : CK (07/04/21 1530) Goals Short Term Goals Time Frame for [...] Code Treatment Minutes: 33 Minutes PAIGE Moreira * Rebeca Osborne PT - 07/04/2021 4:11 PM EDT Physical Therapy Facility/Department: [address] [facility] [place] Physical Therapy Initial Assessment [...] past surgical history that includes Cholecystectomy; shoulder surgery;Achilles tendon surgery; back surgery; and Upper gastrointestinal endoscopy (N/A, 07/02/2021). Assessment Body Structures, Functions, Activity Limitations Requiring Skilled Therapeutic Intervention: Decreased functional mobility ;Decreased endurance;Decreased ROM;Decreased strength;Decreased safe awareness;Decreased balance;Decreased cognition Assessment: Pt ambulated 15ft w/ RW Alejandra, pt requiring modA to [facility]. 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 Type of Occupation: [employer], [employer] Leisure & Hobbies: shopping Additional Comments: Support from shinto friends, but unsure if she would have [...] Not formally assessed due to c-spine precautions; youth director strength WFL Strength LUE Strength LUE: Exception Comment: Not formally assessed due to c-spine precautions; youth director strength WFL Bed mobility Supine to Sit: Contact guard assistance Sit to Supine: (Did not formally assess- pt retired in restroom upon publications writer's exit) Bed Mobility Comments: Increased time [...] lean throughout ambulation requiring verbal cueing to maintainbalance and correct posterior trunk lean throughout ambulation. Surgical shoe donned prior to ambulation requiring Alejandra donning/ doffing from assistance from publications writer. More Ambulation?: No Stairs/Curb Stairs?: No [...] Treatment Minutes: 23 Minutes Rebeca Osborne PT * HOLGER Gonzales - 07/04/2021 2:34 PM EDT Speech Language Pathology Speech Language Pathology [facility] Cognitive Treatment Note Date: 07/04/2021 Patient s Name: Meg Georges Diagnosis: Patient Active Problem List Diagnosis Code Cellulitis of left finger L03.012 Altered mental state R41.82 Encephalitis G04.90 Encephalopathy G93.40 CIDP (chronic inflammatory demyelinating polyneuropathy) ([facility]) G61.81 Sepsis ([facility]) A41.9 Bacteremia R78.81 Hypothyroidism E03.9 Hypokalemia E87.6 Type 2 diabetes mellitus with diabetic polyneuropathy ([facility]) E11.42 Primary hypertension I10 Upper GI bleed K92.2 Non-intractable vomiting R11.10 Unintentional weight loss R63.4 Acute metabolic encephalopathy G93.41 MSSA (methicillin susceptible Staphylococcus aureus) septicemia ([facility]) A41.01 Elevated C-reactive protein (CRP) R79.82 Bandemia D72.825 Allergy to multiple antibiotics Z88.1 Pyogenic inflammation of bone ([facility]) M86.9 Acute intractable headache R51.9 Pain: 10/10 [...] recommended at discharge. Treatment completed by:Chaitanya Pratt Compressor Station Chief Engineer ROBBIE MCKEON, PARTS CHASER, M.A. [facility]-PARTS CHASER * Alisia Cevallos DO - 07/04/2021 2:15 PM EDT Patient's operative note found from care everywhere from Dr.Gloria Elena Washington MD 02/22/2010 from [facility]. Implant is Baerveldt 250 tube shunt, on the left for open angle glaucoma. This is MRI compatible. MRI department will confirm this. * HOLGER Gonzales - 07/04/2021 1:18 PM EDT Speech Language Pathology [facility] Speech Language Pathology Date: 07/04/2021 Patient Name: Meg Georges Date of : 1965 AGE: 56 y.o. Patient Not Available for Speech Therapy Due to: [] Testing [] Hemodialysis [] Cancelled by RN [] Surgery [] Intubation/Sedation/Pain Medication [] Medical instability [x] Other: Pt in pain. Asked ST to return later Next scheduled treatment: 518 in PM if able, 07/05 Completed by:Chaitanya Pratt Compressor Station Chief Engineer ROBBIE MCKEON PARTS CHASER, M.A. [facility]-PARTS CHASER * Gutierrez Sloan MD - 07/04/2021 12:13 PM EDT ENT/OTOLARYNGOLOGY PROGRESS NOTE REASON FOR CARE: AMS, L vocal cord paralysis HISTORY OF PRESENT ILLNESS: Meg Georges is a 56 y.o. who is being seen for follow-up of L vocal cord paralysis and hypophonia.Since last ENT eval she's had an MBS [...] and Dr. Angel Krueger [address] [facility] [address] OPTION 2: [facility] [address] [place] [address] Appointment scheduling: Other Useful Numbers: [facility]' ENT Nurse triage line [phone] (ENT-related questions or concerns, 8am-4pm,Friday through Friday) Gutierrez Sloan MD Pediatric Otolaryngology-Head and Neck Surgery [facility] Otolaryngology group Office ph# [phone] Also available in [email or web address] * Giulia Bray APRN - GROMMET WORKER - 07/04/2021 10:06 AM EDT Images from the original note were not included. [facility] - Infectious diseases evaluation admission [...] patient, RN, Dr. Robledo. Infection Control Recommendations Portal Precautions Contact Isolation Antimicrobial Stewardship Recommendations Simplification of therapy Targeted therapy History of Present Illness: Initial history: Meg Georges is a 56 y.o.-year-old female presented to the ED for altered mental status. Patient iscurrently admitted under neurology service. Patient presented from a fpc after an episode of confusion overnight where she was found wandering outside her fpc. She had CT head done at outside facility which did not show any acute changes, telestroke was consulted for the concern of confusion, they recommended transfer to [facility] for MRI of the brain. BC SA MSSA and LP neg CRP elevated and WBc up - creat normal 06/29 mentally recovered Neck pain x 1 mo Left sole callus was infected x 2 months ago at the [facility] She gets her IvIg through a periph [...] criteria for the SA bacteremia research study 07/04 Afebrile. Flexion/Extension films [...] ESOPHAGOGASTRODUODENOSCOPY performed by Hari Wagner MD at [facility] Endoscopy Medications: lidocaine 1 patch TransDERmal [...] Friends and Family: Not on file Attends Islam Services: Not on file Active Member of [...] 0439 07/03/21 0439 07/03/21 1637 07/04/21 0316 NA [...] Orellana CNP Office: Perfect serve / office [phone] \ * REBEKA Conte CNP - 07/04/2021 8:13 AM EDT Images from the original note [...] She was found wandering outside of her fpc. She was admitted to the medicine team and was found to have sepsisas well as a GI bleed. Neurology was consulted due to altered mentation and headache. CT head was done and was unremarkable. CTA head neck unremarkable. EEG was normal. Spinal tap was done in the ED with CSF studies negative for meningitis or COMMERCIAL PEST CONTROL TECHNICIAN infection. For her headache she was placed [...] ESOPHAGOGASTRODUODENOSCOPY performed by Hari Wagner MD at [facility] Endoscopy Social History: Meg Georges reports [...] + headache with cervical neck pain, + hoarsevoice Eyes Negative for photophobia, pain and discharge [...] LABA1C 9.4 (H) 06/28/2021 LABMICR 7 06/25/2013 [id number] 06/28/2016 Diagnostic data reviewed: CT HEAD [...] is clinically stable at this time, would recommendto hold off on IVIG until infection/sepsis is cleared before resuming her maintenance IVIG regimen.Will continue to follow clinically and if symptoms worsen, can consider initiating IVIG sooner -CSF studies are negative for COMMERCIAL PEST CONTROL TECHNICIAN infection -Continue Depakene 250mg BID for headache -GI is following, patient is s/p EGD with findings suggestive of Alan esophagitis -ID is following; patient remains on antibiotics -Neurosurgery is following; possible myelogram -PT/OT -We will follow Please note that this note was generated using a voice recognition dictation software. Although every effort was made to ensure the accuracy of this automated brownfield redevelopment site manager, some errors in brownfield redevelopment site manager may have occurred. * Rufus Argueta MD - 07/04/2021 7:05 AM EDT Images from the original note were not included. [facility] Internal Medicine Teaching Residency Program Inpatient Daily Progress Note Patient: Meg Georges Date of : 1965 Acct: [id number] Room: [facility][note 3]0146- Admit date: 06/28/2021 Today's date: 07/04/21 Number [...] neuropathy follows neurology. Presented to ED from fpc, found confused outside. Imaging negative. She complains [...] Septum was midline, mucosa was without erythema, exudatesor cobblestoning. No thrush was noted. Neck: Supple without thyromegaly. No palpable lymphadenopathy. Generalized tenderness anterior neck. No elevated JVP. Trachea was midline. Respiratory: Chest was symmetrical without dullness to percussion. Breath sounds bilaterally were clear to auscultation. There were no wheezes, rhonchi or rales. There is no intercostal retraction oruse of accessory muscles. No egophony noted. Cardiovascular: [...] mL, PRN tiZANidine, 2 mg, Q8H PRN ayanzfxxsv-zgqpefgrhirff-keemzycx, 1 tablet, Q4H PRN hydrALAZINE, 10 mg, [...] not displayed. BMP: Recent Labs 07/02/2141807/02/21 1015 07/03/219 07/03/21 1637 07/04/21 0316 NA 134* -- [...] examination and limitations the study was made toand acknowledged by Dr. Boothe in the emergency [...] concern for osteomyelitis and possible source of MSSAbacteremia -XR left foot negative for osteomyelitis - [...] controlled Elevated troponins: Downtrending likely type II CA -echo result pending Hypokalemia: K+ 2.9 today. [...] Argueta MD Internal Medicine Resident, PGY- 1 [facility]; [place], [place] 07/04/2021, 7:05 AM Associated attestation - Johnny Robledo MD - 07/04/2021 3:14 PM EDT Attending Supervising Physician s Attestation Statement I have seen and examined Meg Georges and the coffey elements of all parts of the encounter have been performed by me. I agree with the assessment, plan and orders as documented by the Advanced PracticeProvider. I discussed the findings and plans with the resident physician and agree as documented intheir note . In addition to the pertinent positives and negatives as stated within HPI and the review of systemsas documented in the notes, all other systems were reviewed when able to and are reported negative. Additional Comments: continue IV abx per ID. NS evaluation in progress. Repeat cultures remain positive * Rebeca Osborne PT - 07/03/2021 2:20 PM EDT Images from the original note were not included. Physical Therapy Physical Therapy Cancel Note DATE: 07/03/2021 NAME: Meg Georges : 1965 Patient not seen this date for Physical Therapy due to: Other: PT to await NS recommendations prior to completion of evaluation. PT will check back 07/04/21. * HOLGER Larson - 07/03/2021 1:33 PM EDT Speech Language Pathology Facility/Department: [facility] 1C STEP DOWN Initial Speech/Language/Cognitive Assessment NAME: Meg Georges : 1965 ADMISSION DATE: 06/28/2021 ADMITTING DIAGNOSIS: has Cellulitis of left finger; Altered mental state; Encephalitis; Encephalopathy; CIDP (chronic inflammatory demyelinating polyneuropathy) ([facility]); Sepsis ([facility]); Bacteremia; Hypothyroidism; Hypokalemia; Type 2 diabetes mellitus with diabetic polyneuropathy ([facility]); Primary hyperten randall; Upper GI bleed; Non-intractable vomiting; Unintentional weight loss; Acute metabolic encephalopathy; and MSSA (methicillin susceptible Staphylococcus aureus) septicemia ([facility]) on their problem list. Date of Eval: [...] with diabetic retinopathy, macular edema, hypothyroidism, hyperlipidemia, sleepapnea, who was transferred from [facility], after she presented from her fpc for an episode of confusion overnight where she was found wandering outside her fpc. She does not recall the episode very well, complaining of head pain, generalized weakness, weak voice. She had CT head done at outside facility which did not show any acute changes, telestroke was consulted for the concern for confusion, they recommended transfer to [place] for MRI of the brain. Patient has a complicated history over the last few years, has been seen by neurology at [facility] for worsening neuropathy symptoms, eventually diagnosed with CIDP and she is on IVIG infusions every 2 weeks although she has not had them in the last month or so since being in the fpc. 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 She reports some lower back and neck pain. She began experiencing weakness in her hands more recently, with symptoms equal bilaterally. She has been diabetic (type 2) in late , with undercontrolled glucose. Her glucose usually runs in 100s-200s. She has a history of two L4-5 lumbar spinesurgeries in for leg pain, without improvement in [...] Further therapy recommended at discharge. Recommendations: Requires PARTS CHASER Intervention: Yes D/C Recommendations: Ongoing speech therapy [...] Minutes 10 HOLGER Larson 07/03/2021 1:33 PM * Meka Crowe MD - 07/03/2021 1:27 PM EDT Images from the original note were not included. [facility] - Infectious diseases evaluation admission [...] the rise clayton[pite tx Infection Control Recommendations Portal Precautions Contact Isolation Antimicrobial Stewardship Recommendations Simplification of therapy Targeted therapy History of Present Illness: Initial history: Meg Georges is a 56 y.o.-year-old female presented to the ED for altered mental status. Patient iscurrently admitted under neurology service. Patient presented from a fpc after an episode of confusion overnight where she was found wandering outside her fpc. She had CT head done at outside facility which did not show any acute changes, telestroke was consulted for the concern of confusion, they recommended transfer to [facility] for MRI of the brain. BC SA MSSA and LP neg CRP elevated and WBc up - creat normal 06/29 mentally recovered Neck pain x 1 mo Left sole callus was infected x 2 months ago at the [facility] She gets her IvIg through a periph [...] left BACK SURGERY L 4 and 5 1996 CHOLECYSTECTOMY SHOULDER SURGERY right Medications: lidocaine [...] Friends and Family: Not on file Attends Islam Services: Not on file Active Member of [...] Crowe MD Office: [facility] / office [phone] \ * Hodan Kyle - 07/03/2021 10:22 AM EDT Echo completed in echo lab. * Sindy REBEKA Sunshine - GROMMET WORKER - 07/03/2021 8:52 AM EDT Images from the original note [...] every 2 weeks, DM with neuropathy, HTN, HLD,who was admitted on 06/28/2021 with confusion. She was found wandering outside of her fpc. She was admitted to the medicine team and was found to have sepsis as well as a GI bleed. Neurology was consulted due to altered mentation and headache. CT head was done and was unremarkable. CTA head neck unremarkable. EEG was normal. Spinal tap was done in the ED with CSF studies negative for meningitis or COMMERCIAL PEST CONTROL TECHNICIAN infection. For her headache she was placed on Depacon with relief and also received IVmag and Fioricet. Muscle relaxer was added due [...] LABA1C 9.4 (H) 06/28/2021 LABMICR 7 06/25/2013 [id number] 06/28/2016 Diagnostic data reviewed: CT HEAD [...] CIDP Plan: -CSF studies are negative for COMMERCIAL PEST CONTROL TECHNICIAN infection -Patient headache is improved with Depacon; [...] to ensure the accuracy of this automated brownfield redevelopment site manager, some errors in brownfield redevelopment site manager may have occurred. * Rufus Argueta MD - 07/03/2021 5:57 AM EDT Images from the original note were not included. [facility] Internal Medicine Teaching Residency Program Inpatient Daily Progress Note Patient: Meg Georges Date of : 1965 Acct: [id number] Room: 0146/0146-01 Admit date: 06/28/2021 Today's date: [...] neuropathy follows neurology. Presented to ED from fpc, found confused outside. Imaging negative. She complains [...] Septum was midline, mucosa was without erythema, exudatesor cobblestoning. No thrush was noted. Neck: Supple without thyromegaly. No palpable lymphadenopathy. Generalized tenderness anterior neck. No elevated JVP. Trachea was midline. Respiratory: Chest was symmetrical without dullness to percussion. Breath sounds bilaterally were clear to auscultation. There were no wheezes, rhonchi or rales. There is no intercostal retraction oruse of accessory muscles. No egophony noted. Cardiovascular: [...] Daily PRN tiZANidine, 2 mg, Q8H PRN xmbamykkfo-jaxhiiroktdwy-luvtcnkx, 1 tablet, Q4H PRN hydrALAZINE, 10 mg, [...] 07/02/21 0419 07/02/21 0419 07/02/21 1508 07/02/21 204107/03/21438 WBC 12.6* -- 16.7* -- -- -- [...] BMP: Recent Labs 07/01/21 0631 07/01/21 0845 07/02/2141807/02/2141807/02/21 1015 07/02/217 07/03/21438 NA 137 -- 134* -- -- -- [...] examination and limitations the study was made toand acknowledged by Dr. Boothe in the emergency [...] concern for osteomyelitis and possible source of MSSAbacteremia -XR left foot negative for osteomyelitis - [...] controlled Elevated troponins: Downtrending likely type II CA -echo result pending Hypokalemia: K+ 2.9 today. [...] Argueta MD Internal Medicine Resident, PGY- 1 [facility]; [place], [place] 07/03/2021, 5:58 AM Associated attestation - Johnny Robledo MD - 07/03/2021 2:25 PM EDT Attending Supervising Physician s Attestation Statement I have seen and examined Meg Georges and the coffey elements of all parts of the encounter have been performed by me. I agree with the assessment, plan and orders as documented by the Advanced PracticeProvider. I discussed the findings and plans with the resident physician and agree as documented intheir note . In addition to the pertinent positives and negatives as stated within HPI and the review of systemsas documented in the notes, all other systems were reviewed when able to and are reported negative. Additional Comments: recent blood cultures remain positive. Case discussed with Dr Crowe, bone scanconcerning for osteomyelitis. Recommending NS evaluation * Meka Crowe MD - 07/02/2021 2:20 PM EDT Images from the original note were not included. [facility] - Infectious diseases evaluation admission [...] scan to the neck Infection Control Recommendations Portal Precautions Contact Isolation Antimicrobial Stewardship Recommendations Simplification of therapy Targeted therapy History of Present Illness: Initial history: Meg Georges is a 56 y.o.-year-old female presented to the ED for altered mental status. Patient iscurrently admitted under neurology service. Patient presented from a fpc after an episode of confusion overnight where she was found wandering outside her fpc. She had CT head done at outside facility which did not show any acute changes, telestroke was consulted for the concern of confusion, they recommended transfer to [facility] for MRI of the brain. BC SA MSSA and LP neg CRP elevated and WBc up - creat normal 06/29 mentally recovered Neck pain x 1 mo Left sole callus was infected x 2 months ago at the [facility] She gets her IvIg through a periph [...] Friends and Family: Not on file Attends Islam Services: Not on file Active Member of [...] Recent Labs 07/01/21 0631 07/01/21 1558 07/01/218 07/02/219 WBC 12.6* -- -- 16.7* HGB 9.0* < > 8.8* 9.0* HCT 28.4* < > 27.2* 28.2* PLT 284 -- -- 299 LYMPHOPCT 17* -- -- 21* MONOPCT 6 -- -- 4 < > = values in this interval not displayed. BMP: Recent Labs 07/01/2163007/01/2163007/01/2145 07/01/21155707/02/2141807/02/21 1015 NA 137 -- -- -- 134* [...] Crowe MD Office: [facility] / office [phone] \ * HOLGER Larson - 07/02/2021 11:41 AM EDT Speech Language Pathology [facility] Speech Language Pathology Date: 07/02/2021 Patient [...] as appropriate Completed by: HOLGER Larson, M.S. [facility]-PARTS CHASER * Kenya Liu MD - 07/02/2021 8:22 AM EDT NEUROLOGY INPATIENT PROGRESS NOTE 07/02/2021 Subjective: Meg Georges is a 56 y.o. female admitted on 06/28/2021 with Stupor [R40.1] Encephalitis [G04.90] Altered mental state [R41.82] Briefly, this is a 56 y.o. 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 She was found wandering outside her fpc. Admitted to medicine for sepsis work up, [...] 0-6 Units SubCUTAneous Nightly PRN Meds include: bieiapwqqs-avtqfmsyzoile-xlkoipsf, hydrALAZINE, sodium chloride flush, sodium chloride, ondansetron [...] headache. Negative for seizures, weakness, numbness, confusion, aphasia,dysarthria PSYCHIATRIC: negative for agitation, hallucination, SI/HI SKIN [...] 07/02/219 WBC 12.6* -- -- -- 16.7* HGB [...] LABA1C 9.4 (H) 06/28/2021 LABMICR 7 06/25/2013 [id number] 06/28/2016 No results found for: PHENYTOIN, [...] examination and limitations the study was made toand acknowledged by Dr. Boothe in the emergency [...] posterior right upper lobe. Please see follow-up recommendationsbelow. 2. No consolidation or acute inflammatory process otherwise appreciated. 3. Indeterminate exophytic left renal lesions which could be further characterized by CT or MRI renal mass protocol. REC OMMENDATIONS: 7 mm right ground-glass pulmonary nodule within the upper lobe. Recommend a non-contrast Chest CT at 6-12 months to confirm persistence, then additional non-contrast Chest CTs every 2 years until 5 years. If nodule grows or develops solid component(s), consider resection. These guidelines do not apply to immunocompromised patients and patients with cancer. Follow up in patients withsignificant comorbidities as clinically warranted. For lung cancer screening, adhere to Lung-RADS guidelines. Reference: Radiology. 2017; 284(1):228-43. CT CERVICAL SPINE W CONTRAST Result Date: 06/29/2021 EXAMINATION: CT OF THE CERVICAL SPINE WITH CONTRAST 06/29/2021 7:14 pm TECHNIQUE: CT of the cervicalwas performed with the administration of intravenous contrast. [...] change. Multilevel degenerate changes cervical spine notably C6-C7..SOFT TISSUES: There is no prevertebral soft tissue [...] HISTORY: ORDERING SYSTEM PROVIDED HISTORY: AMS TECHNOLOGIST PROVIDEDHISTORY: AMS Decision Support Exception - unselect if [...] ANTERIOR CIRCULATION: No significant stenosis of the i ntracranial internal carotid, anterior cerebral, or middle cerebral arteries. No aneurysm. POSTERIOR CIRCULATION: No significant stenosis of the vertebral, basilar, or posterior cerebral arteries. Noaneurysm. OTHER: No dural venous sinus thrombosis on [...] 06/28/2021 with episodic confusion. She was found wanderingoutside her fpc. MSSA sepsis - on Abx per primary. [...] clinical laboratory, imaging and other diagnostic tests withthe residents. I agree with the assessment, plan [...] for EGD today. 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 Will continue to follow. Pawan Dutton DO 07/02/2021 3:45 PM * Rufus Argueta MD - 07/02/2021 7:16 AM EDT Images from the original note were not included. [facility] Internal Medicine Teaching Residency Program Inpatient Daily Progress Note Patient: Meg Georges Date of : 1965 Acct: [id number] Room: 0146/0146-01 Admit date: 06/28/2021 Today's date: [...] neuropathy follows neurology. Presented to ED from fpc, found confused outside. Imaging negative. She complains [...] Septum was midline, mucosa was without erythema, exudatesor cobblestoning. No thrush was noted. Neck: Supple without thyromegaly. No palpable lymphadenopathy. Generalized tenderness anterior neck. No elevated JVP. Trachea was midline. Respiratory: Chest was symmetrical without dullness to percussion. Breath sounds bilaterally were clear to auscultation. There were no wheezes, rhonchi or rales. There is no intercostal retraction oruse of accessory muscles. No egophony noted. Cardiovascular: [...] at 07/01/21 0600 sodium chloride dextrose PRN Gkpfwkqqtjumawwwuajkf-zercvalwmtepu-vyjuzvnl, 1 tablet, Q4H PRN hydrALAZINE, 10 mg, [...] 0631 07/01/21 0631 07/01/21 1558 07/01/21 2048 07/02/219 WBC 12.6* -- -- -- 16.7* [...] 0631 07/01/21 0631 07/01/21 0845 07/01/21 1558 07/02/219 NA 137 -- -- -- 134* K [...] examination and limitations the study was made toand acknowledged by Dr. Boothe in the emergency [...] concern for osteomyelitis and possible source of MSSAbacteremia -XR left foot negative for osteomyelitis - [...] unable to take PO coreg and lisinopril dueto N&V Elevated troponins: Downtrending likely type II CA -echo result pending Hypokalemia: K+ 2.2 today. Replace PO and IV and monitor Left Vocal cord paralysis: Ongoing x 1 month. ENT on board. Plan for injection laryngoplasty for voice/swallowing improvement at some point. Needs formal speech therapy/swallow study assessment as she is likely aspirating liquids Rufus Argueta MD Internal Medicine Resident, PGY- 1 [facility]; [place], [place] 07/02/2021, 7:16 AM Associated attestation - Silver Carmona MD - 07/02/2021 12:02 PM EDT Images from the original note were not included. Attending Physician Statement I have discussed the case, including pertinent history and exam findings with the resident and the team. I have seen and examined the patient and the coffey elements of the encounter have been performedby me. I agree with the assessment, plan and orders as documented by the resident. Review of Systems: In addition to the pertinent positives and negatives as stated within HPI and the review of systemsas documented in their notes, all other systems [...] Internal Medicine Residency Program 07/02/2021, 12:02 PM * Jenifer Jewell MD - 07/01/2021 2:01 PM EDT Attending Physician Statement I have discussed the case of Meg Georges including pertinent history and exam findings with the resident/ GROMMET WORKER. I have seen and examined the patient and the coffey elements of the encounter have been performed by me. I agree with the assessment, plan and orders as documented by the resident or GROMMET WORKER with changes made to the note. Briefly, this is a 56 y.o. female with known dx of CIDP (on 2wkly IVIG), IDDM, HLD, sleep apnea wasadmitted on 06/28/2021 with episodic confusion; found wandering outside her fpc. Her history is significant for CIDP for [...] coffee-ground emesis. Medicine team requested GI consult andpatient was initiated on Protonix drip. On schedule [...] 0-6 Units SubCUTAneous Nightly PRN Meds include: rghwnaxlqq-mxinlviwupzcy-evulfwkm, hydrALAZINE, sodium chloride flush, sodium chloride, ondansetron [...] recall. Pupils are bilaterally reactive. Blinks to threatbilaterally. She moves bilateral upper extremities with 5/5 MRC and she has significant weakness inbilateral lower extremities at 4+/5 MRC proximally and 4 -/5 distally with diminished light touch and pinprick in distal lower extremities with symmetric 2+ DTRs in upper extremities and hypoactive patellar jerks and absent ankle jerks with equivocal plantar responses bilaterally. Data: Lab Results: CBC: Recent Labs 06/29/21 0351 05/13/35006/30/21 0909 06/30/21212807/01/21 0631 WBC 15.0* -- -- -- 12.6* [...] LABA1C 9.4 (H) 06/28/2021 LABMICR 7 06/25/2013 [id number] 06/28/2016 Impression and Plan: Ms. Meg [...] you. Jenifer Jewell MD 07/01/2021 2:01 PM * Jeovany Weldon MD - 07/01/2021 11:06 AM EDT [facility] Neurology IN-PATIENT SERVICE [facility] Progress note Date: 07/01/2021 Patient name: Meg Georges Date of admission: 06/28/2021 11:59 AM Account: [id number] Date of : 1965 PCP: Neri Santa Sr, DO Room: [address] [place] [address] Code Status: Full Code Chief Complaint: Chief Complaint Patient presents with Altered Mental Status Interval hx: The Patient was seen and examined at bedside Is vitally stable alert oriented x3 No acute events overnight Patient resting in bed comfortable this AM only complaint is persistent left frontal headache 07/27.No response to Fioricet PRN will give IV mag 2 grams also receiving IV potassium given level of 2.2this AM. Will give IV depacon 500mg this AM and continue depacon 250mg Q8 this evening Remains on ancef for MSSA pneumonia. Brief History of Present Illness: The patient is a 56 y.o. female who presents with Altered Mental Status and she is admitted to the hospital for the management of MSSA pneumonia. PMH significant for knowndiagnosis of CIDP on IVIG every 2 weeks [...] panel 06/28/21 Total cholesterol 155, LDL 63 [id number] this admission CSF studies 06/28/21 Oligoclonal banding [...] into the right eye 2 times daily 6/22/18 Yes Historical Provider, Multiple Vitamins-Minerals (MULTIVITAMIN ADULT PO) Take 1 tablet by mouth daily Yes Historical Provider, levothyroxine (SYNTHROID) 112 MCG tablet Take 112 mcg by mouth Daily Yes Historical Provider, Allergies: Moxifloxacin, Peg 3350-electrolytes, Tapentadol, Avelox [moxifloxacin hydrochloride], and Cephalexin Social History: Tobacco: reports that she quit smoking about 25 years ago. Her smoking use included cigarettes. Shequit after 20.00 years of use. She has [...] # 2.14 1.0 - 4.8 k/uL Absolute Thomas # 0.76 0.1 - 0.8 k/uL Absolute [...] 2.6 mg/dL Assessment : Primary Problem Sepsis ([facility]) Active Hospital Problems Diagnosis Date Noted Acute metabolic encephalopathy [G93.41] 06/30/2021 Priority: Medium MSSA (methicillin susceptible Staphylococcus aureus) septicemia ([facility]) [A41.01] 06/30/2021 Priority: Medium Upper GI bleed [K92.2] Priority: Medium Non-intractable vomiting [R11.10] Priority: Medium Unintentional weight loss [R63.4] Priority: Medium Sepsis ([facility]) [A41.9] 06/29/2021 Priority: Medium Bacteremia [R78.81] 06/29/2021 Priority: Medium Hypothyroidism [E03.9] 06/29/2021 Priority: Medium Hypokalemia [E87.6] 06/29/2021 Priority: Medium Type 2 diabetes mellitus with diabetic polyneuropathy ([facility]) [E11.42] 06/29/2021 Priority: Medium Primary hypertension [I10] 06/29/2021 Priority: Medium Encephalopathy [G93.40] Priority: Medium CIDP (chronic inflammatory demyelinating polyneuropathy) ([facility]) [G61.81] Priority: Medium Altered mental state [R41.82] [...] history and exam findings with the resident/ GROMMET WORKER. I have seen and examined the patient and the coffey elements of the encounter have been performed by me. I agree with the assessment, plan and orders as documented by the resident or GROMMET WORKER with changes made to the note. Briefly, this is a 56 y.o. female with known dx of CIDP (on 2wkly IVIG), IDDM, HLD, sleep apnea wasadmitted on 06/28/2021 with episodic confusion; found wandering outside her fpc. Her history is significant for CIDP for [...] coffee-ground emesis. Medicine team requested GI consult andpatient was initiated on Protonix drip. On schedule [...] SubCUTAneous Nightly PRN Meds include: PRN Medications hycvveucit-wnarmwayzggba-yvmuyexq, hydrALAZINE, sodium chloride flush, sodium chloride, ondansetronOR ondansetron, acetaminophen OR acetaminophen, bisacodyl, sodium chloride [...] recall. Pupils are bilaterally reactive. Blinks to threatbilaterally. She moves bilateral upper extremities with 5/5 MRC and she has significant weakness inbilateral lower extremities at 4+/5 MRC proximally and 4 -/5 distally with diminished light touch and pinprick in distal lower extremities with symmetric 2+ DTRs in upper extremities and hypoactive patellar jerks and absent ankle jerks with equivocal plantar responses bilaterally. Data: Lab Results: CBC: Recent Labs 06/29/21 03506/29/2135006/30/21 0909 06/30/219 07/01/21 0631 WBC 15.0* -- [...] LABA1C 9.4 (H) 06/28/2021 LABMICR 7 06/25/2013 [id number] 06/28/2016 Impression and Plan: Ms. Meg [...] you. Jenifer Jewell MD 07/01/2021 2:01 PM * Rufus Argueta MD - 07/01/2021 7:32 AM EDT Images from the original note were not included. [facility] Internal Medicine Teaching Residency Program Inpatient Daily Progress Note Patient: Meg Georges Date of : 1965 Acct: [id number] Room: [facility][note 3]0146- Admit date: 06/28/2021 Today's date: 07/01/21 Number [...] neuropathy follows neurology. Presented to ED from fpc, found confused outside. Imaging negative. She complains of headache 10/10, not sure how she got to ED. [...] Septum was midline, mucosa was without erythema, exudatesor cobblestoning. No thrush was noted. Neck: Supple without thyromegaly. No palpable lymphadenopathy. Generalized tenderness anterior neck. No elevated JVP. Trachea was midline. Respiratory: Chest was symmetrical without dullness to percussion. Breath sounds bilaterally were clear to auscultation. There were no wheezes, rhonchi or rales. There is no intercostal retraction oruse of accessory muscles. No egophony noted. Cardiovascular: [...] at 07/01/21 0600 sodium chloride dextrose PRN Ylaiildsgfaacsbxgqjsw-sfhghdyqlttsv-ukrdqcnq, 1 tablet, Q4H PRN hydrALAZINE, 10 mg, [...] examination and limitations the study was made toand acknowledged by Dr. Boothe in the emergency [...] concern for osteomyelitis and possible source of MSSAbacteremia -XR left foot negative for osteomyelitis - [...] unable to take PO coreg and lisinopril dueto N&V Elevated troponins: Downtrending likely type II CA -echo result pending Hypokalemia: K+ 2.2 today. Replace PO and IV and monitor Rufus Argueta MD Internal Medicine Resident, PGY- 1 [facility]; [place], [place] 07/01/2021, 7:33 AM Associated attestation - Silver Carmona MD - 07/01/2021 1:17 PM EDT Images from the original note were not included. Attending Physician Statement I have discussed the case, including pertinent history and exam findings with the resident and the team. I have seen and examined the patient and the coffey elements of the encounter have been performedby me. I agree with the assessment, plan and orders as documented by the resident. Review of Systems: In addition to the pertinent positives and negatives as stated within HPI and the review of systemsas documented in their notes, all other systems were reviewed when able to and are reported negative. Patient is improving, continue nafcillin, ID input appreciated Plan for EGD tomorrow Replace potassium Silver Carmona MD Attending Physician, Internal Medicine Service Internal Medicine Residency Program 07/01/2021, 1:17 PM * Seth Stokes MD - 07/01/2021 7:10 AM EDT Images from the original note were not included. [facility] - Infectious diseases evaluation Progress [...] be related to arthritis or osteomyelitis by CTcervical spine 06-29-21 Other: Hypothyroidism Diabetes mellitus type [...] object in her eyes Infection Control Recommendations Portal Precautions Antimicrobial Stewardship Recommendations Simplification of therapy Targeted therapy History of Present Illness: INITIAL HISTORY: Meg Georges is a 56 y.o.-year-old female who presented to the ED because of altered mental status. Patient is currently admitted under neurology service. Patient presented from a fpc after an episode of confusion overnight where she was found wandering outside her fpc. She had CThead done at outside facility which did not show any acute changes. Telestroke was consulted because of the concern with confusion, they recommended transfer to [facility] for MRI of the brain. BC: Staph A (MSSA) and LP neg CRP elevated and WBc up - creat normal 06/29 mentally recovered Neck pain x 1 mo Left sole callus was infected x 2 months ago at [facility] She gets her IvIg through a peripheral [...] Friends and Family: Not on file Attends Islam Services: Not on file Active Member of [...] Stokes MD Office: Perfect serve / office [phone] * Rosalinda Alvarado APRN - GROMMET WORKER - 07/01/2021 6:49 AM EDT [facility] Progress Note Meg L Bays is a 56 y.o. female patient. Hospitalization [...] chloride Stopped (07/01/21426) sodium chloride dextrose PRN Meds:nmcilberjr-mrdxorwznptvy-papzoblv, hydrALAZINE, sodium chloride flush, sodium chloride, ondansetron [...] results for input(s): LABIRON, TIBC, IRON, FERRITIN, [id number], FOLATE, OCCULTBLD in the last 72 hours. [...] midfoot. No acute fracture or dislocation. Large plantarcalcaneal spur and insertional Achilles enthesophyte. 1. Mild [...] examination and limitations the study was made toand acknowledged by Dr. Boothe in the emergency [...] posterior right upper lobe. Please see follow-up recommendationsbelow. 2. No consolidation or acute inflammatory process otherwise appreciated. 3. Indeterminate exophytic left renal lesions which could be further characterized by CT or MRI renal mass protocol. REC OMMENDATIONS: 7 mm right ground-glass pulmonary nodule within the upper lobe. Recommend a non-contrast Chest CT at 6-12 months to confirm persistence, then additional non-contrast Chest CTs every 2 years until 5 years. If nodule grows or develops solid component(s), consider resection. These guidelines do not apply to immunocompromised patients and patients with cancer. Follow up in patients withsignificant comorbidities as clinically warranted. For lung cancer screening, adhere to Lung-RADS guidelines. Reference: Radiology. 2017; 284(1):228-38. CT CERVICAL SPINE W CONTRAST Result Date: 06/29/2021 EXAMINATION: CT OF THE CERVICAL SPINE WITH CONTRAST 06/29/2021 7:14 pm TECHNIQUE: CT of the cervicalwas performed with the administration of intravenous contrast. [...] change. Multilevel degenerate changes cervical spine notably C6-C7..SOFT TISSUES: There is no prevertebral soft tissue [...] the abdomen and pelvis was performed after theadministration of 75 mL Isovue-[address] dose reduction technique was used, including Automated Exposure Control. FINDINGS: The visualized portions of the lung bases are clear. Abdomen: Theliver and spleen enhance homogeneously without focal lesion. There is no intra or extrahepatic biliary duct dilatation. The gallbladder is surgically absent. There are a couple left renal cysts with additional bilateral renal hypodensities which are too small to characterize by CT size criteria. Oth erwise, the pancreas, adrenal glands, kidneys, and bowel loops, including the appendix, are unremarkable. There is no mesenteric or retroperitoneal lymphadenopathy. Pelvis: The bladder and rectum areunremarkable. There is no iliac or inguinal lymphadenopathy. The uterus is present. There is a leftovarian calcification. Otherwise, the ovaries appear within normal [...] HISTORY: ORDERING SYSTEM PROVIDED HISTORY: AMS TECHNOLOGIST PROVIDEDHISTORY: AMS Decision Support Exception - unselect if [...] ANTERIOR CIRCULATION: No significant stenosis of the i ntracranial internal carotid, anterior cerebral, or middle cerebral arteries. No aneurysm. POSTERIOR CIRCULATION: No significant stenosis of the vertebral, basilar, or posterior cerebral arteries. Noaneurysm. OTHER: No dural venous sinus thrombosis on this non-dedicated study. BRAIN: No mass effect or midline shift. No extra-axial fluid collection. The shah-white differentiation is maintained. Unremarkable CTA of the head and neck. ENDOSCOPY Principal Problem: Sepsis ([facility]) Active Problems: Altered mental state Encephalitis Encephalopathy CIDP (chronic inflammatory demyelinating polyneuropathy) ([facility]) Bacteremia Hypothyroidism Hypokalemia Type 2 diabetes mellitus with diabetic polyneuropathy ([facility]) Primary hypertension Upper GI bleed Non-intractable vomiting Unintentional weight loss Acute metabolic encephalopathy MSSA (methicillin susceptible Staphylococcus aureus) septicemia ([facility]) Resolved Problems: * No resolved hospital problems. 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 She was noted to be hypertensive in the ED. patient had an episode of coffee-ground hematemesis last evening for which GI wasconsulted. 1. Upper GI bleed with coffee-ground hematemesis [...] of your patient. Rosalinda Alvarado APRN - GROMMET WORKER on 07/01/2021 at 6:50 AM [facility] Please note that this note was generated using a voice recognition dictation software. Although every effort was made to ensure the accuracy of this automated brownfield redevelopment site manager, some errors in brownfield redevelopment site manager may have occurred. Associated attestation - Hari Wagner MD - 07/01/2021 11:00 AM EDT Attending Physician Statement I have seen, examined and discussed the care of Meg Georges, including pertinent history and exam findings, with the GROMMET WORKER. I agree with the assessment, plan and orders as documented by the GROMMET WORKER. * Ganga Archuleta - 06/30/2021 8:04 PM EDT SPIRITUAL CARE DEPARTMENT - [facility] PROGRESS NOTE Shift date: 06/30/21 Shift day: Friday Shift # 2 Room # 0146/0146-01 Name: Meg Georges Age: 56 y.o. Gender: female Orthodox: Baptism Place of mandaen: Referral: Routine Visit Admit Date & Time: 06/28/2021 11:59 AM PATIENT/EVENT DESCRIPTION: Meg Georges is a 56 y.o. female SPIRITUAL ASSESSMENT/INTERVENTION: Patient appeared to welcome dance artist presence. Patient engaged in conversation and stated she had lost her voice. Signal Worker was a ministry of presence and offered prayer for spiritual comfort/support.Patient accepted prayer and expressed gratitude for visit. SPIRITUAL CARE FOLLOW-UP PLAN: Chaplains will remain available to offer spiritual and emotional support as needed. . Spiritual Care Department [facility] [phone] * Jonathan Steve MD - 06/30/2021 12:56 PM EDT Images from the original note were not included. [facility] Internal Medicine Teaching Residency Program Inpatient Daily Progress Note Patient: Meg Georges Date of : 1965 Acct: [id number] Room: [facility]/0146- Admit date: 06/28/2021 Today's date: 06/30/21 Number [...] neuropathy follows neurology. Presented to ED from fpc, found confused outside. Imaging negative. She complains [...] Septum was midline, mucosa was without erythema, exudatesor cobblestoning. No thrush was noted. Neck: Supple without thyromegaly. No palpable lymphadenopathy. Generalized tenderness anterior neck. No elevated JVP. Trachea was midline. Respiratory: Chest was symmetrical without dullness to percussion. Breath sounds bilaterally were clear to auscultation. There were no wheezes, rhonchi or rales. There is no intercostal retraction oruse of accessory muscles. No egophony noted. Cardiovascular: [...] Stopped (06/30/21 0408) sodium chloride dextrose PRN Jivicagqijywotwbgzszd-tuohmmyltthak-eoxomskt, 1 tablet, Q4H PRN hydrALAZINE, 10 mg, [...] not displayed. BMP: Recent Labs 06/28/21 04106/28/21121106/29/21 0351 NA 138 135 137 K 3.4* [...] examination and limitations the study was made toand acknowledged by Dr. Boothe in the emergency [...] concern for osteomyelitis and possible source of MSSAbacteremia -XR left foot negative for osteomyelitis - [...] unable to take PO coreg and lisinopril dueto N&V Elevated troponins: Downtrending likely type II CA -echo result pending Hypokalemia: Labs pending Jonathan Steve MD Internal Medicine Resident, PGY- 2 [facility]; [place], [place] 06/30/2021, 12:56 PM Associated attestation - Silver Carmona MD - 06/30/2021 3:40 PM EDT Images from the original note were not included. Attending Physician Statement I have discussed the case, including pertinent history and exam findings with the resident and the team. I have seen and examined the patient and the coffey elements of the encounter have been performedby me. I agree with the assessment, plan and orders as documented by the resident. Review of Systems: In addition to the pertinent positives and negatives as stated within HPI and the review of systemsas documented in their notes, all other systems were reviewed when able to and are reported negative. ID input noted and appreciated, continue nafcillin, will need outpatient follow- up of CT cervical spine. Speech therapy evaluation GI consult for coffee-ground emesis Monitor hemoglobin, start Protonix Patient has an ulcer on the foot, will get podiatry evaluation Continue supportive care Silver Carmona MD Attending Physician, Internal Medicine Service Internal Medicine Residency Program 06/30/2021, 3:40 PM * Jenifer Jewell MD - 06/30/2021 10:50 AM EDT NEUROLOGY INPATIENT PROGRESS NOTE 06/30/2021 Subjective: Meg Georges is a 56 y.o. female admitted on 06/28/2021 with Stupor [R40.1] Encephalitis [G04.90] Altered mental state [R41.82] Briefly, this is a 56 y.o. female with known dx of CIDP (on 2wkly IVIG), IDDM, HLD, sleep apnea wasadmitted on 06/28/2021 with episodic confusion; found wandering outside her fpc. Her history is significant for CIDP for [...] coffee-ground emesis. Medicine team requested GI consult andpatient was initiated on Protonix drip. On schedule [...] 0-6 Units SubCUTAneous Nightly PRN Meds include: fcahpammat-okoirrizfkxvz-ogvsuizp, hydrALAZINE, sodium chloride flush, sodium chloride, ondansetron OR ondansetron, acetaminophen OR acetaminophen, potassium chloride ORpotassium alternative oral replacement OR potassium chloride, bisacodyl, [...] recall. Pupils are bilaterally reactive. Blinks to threatbilaterally. She moves bilateral upper extremities with 5/5 MRC and she has significant weakness inbilateral lower extremities at 4+/5 MRC proximally and [...] LABA1C 9.4 (H) 06/28/2021 LABMICR 7 06/25/2013 [id number] 06/28/2016 Impression and Plan: Ms. Meg [...] bedside. 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 DATE ONSET: 06/28/2021 [...] chronic IVIG every 2 weeks, transferred from [facility] for further neurological evaluation. She [...] any ENT evaluation Diagnosis: Dysphonia Recommendations: Requires PARTS CHASER Intervention: Yes D/C Recommendations: To be determined [...] Out Minutes HOLGER Newton 06/30/2021 8:59 AM * Seth Stokes MD - 06/30/2021 5:45 AM EDT Images from the original note were not included. [facility] - Infectious diseases evaluation Progress [...] be related to arthritis or osteomyelitis by CTcervical spine 06-29-21 Other: Hypothyroidism Diabetes mellitus type [...] object in her eyes Infection Control Recommendations Portal Precautions Antimicrobial Stewardship Recommendations Simplification of therapy Targeted therapy History of Present Illness: INITIAL HISTORY: Meg Georges is a 56 y.o.-year-old female who presented to the ED because of altered mental status. Patient is currently admitted under neurology service. Patient presented from a fpc after an episode of confusion overnight where she was found wandering outside her fpc. She had CThead done at outside facility which did not show any acute changes. Telestroke was consulted because of the concern with confusion, they recommended transfer to [facility] for MRI of the brain. BC: Staph A (MSSA) and LP neg CRP elevated and WBc up - creat normal 06/29 mentally recovered Neck pain x 1 mo Left sole callus was infected x 2 months ago at [facility] She gets her IvIg through a peripheral [...] Friends and Family: Not on file Attends Islam Services: Not on file Active Member of [...] Stokes MD Office: Perfect serve / office [phone] * Mini Fitzgerald RN - 06/29/2021 6:[address] Crowe phoned publications writer with new order d/c MRI d/t unknown foreign object in patients eyes. New order for bone scan for cervical spine,look for osteomyelitis. * Ashwini Mendoza - 06/29/2021 2:49 PM EDT EEG completed * HOLGER Gonzales - 06/29/2021 1:37 PM EDT Speech Language Pathology [facility] Speech Language Pathology Date: 06/29/2021 Patient [...] Completed by: Chaitanya Pratt Graduate Clinician ROBBIE MCKEON PARTS CHASER, M.A. [facility]-PARTS CHASER * David Donnelly [facility] - 06/29/2021 9:15 AM EDT [facility] Pharmacokinetic Monitoring Service - Vancomycin [...] 1250 mg IV x1 followed by 750 mgIV q12h Anticipated AUC of 412 and trough concentration of 12-14 mcg/mL at steady state Pharmacy will continue to monitor patient and adjust therapy as indicated Thank you for the consult, David Donnelly, Pharm.D., ETIENNE, BCCCP 06/29/2021 9:15 AM * Kishor Her MD - 06/29/2021 9:03 AM EDT Neurology Resident Progress Note SUBJECTIVE: This is a 56 y.o. female admitted 06/28/2021 for Stupor [R40.1] Encephalitis [G04.90] Altered mental state [R41.82] This is a follow-up neurology progress note. The patient was seen andexamined and the chart was reviewed. There were no acute events overnight. ROS Constitutional: positive for generalized fatigue HENT: No change in vision or hearing, wears reading glasses at baseline Respiratory: No cough, SOB, wheezing. Cardiovascular: No chest pain, palpitations, leg swelling. Gastrointestinal: No nausea, vomiting, diarrhea. Genitourinary: No increa [facility] Work Phone: 1(212) 216-132005-24-2022 Hospital Discharge instructions* Discharge Instr - TEX* Sebas Arnold RN - 07/10/2021 7:52 AM EDT Continuity of Care Form Patient Name: Meg Georges : 1965 Admit date: 06/28/2021 Discharge date: 07/10/2021 Code Status Order: Full Code Advance Directives: Admitting Physician: Silver Carmona MD PCP: Neri Santa Sr, DO Discharging Nurse: Thierry Discharging Hospital Unit/Room#: 0146/0146-01 Discharging Unit Phone Number: [phone] Emergency Contact: Extended Emergency Contact Information Primary Emergency Contact: Hina Tohmas [facility] Mobile Relation: Brother/Sister Past Surgical History: Past Surgical History: Procedure Laterality Date ACHILLES TENDON SURGERY left BACK SURGERY L 4 and 5 1995, 1996 CERVICAL FUSION N/A 07/06/2021 POSTERIOR CERVICAL C1 LAMINECTOMY. LEFT C2 RHIZOTOMY, EXPLORATION OF EPIDURAL PHLEGMON performed byAlisia Cevallos DO at [facility] OR CHOLECYSTECTOMY EYE SURGERY [address] shunt for open angle glaucoma. MRI compatible- device is all silicone LAMINECTOMY 07/06/2021 Posterior C1, LEFT C2 RHIZOTOMY, EXPLORATION OF EPIDURAL PHLEGMON SHOULDER SURGERY right UPPER GASTROINTESTINAL ENDOSCOPY N/A 07/02/2021 EGD ESOPHAGOGASTRODUODENOSCOPY performed by Hari Wagner MD at [facility] Endoscopy Immunization History: There is no immunization history on file for this patient. Active Problems: Patient Active Problem List Diagnosis Code Cellulitis of left finger L03.012 Altered mental state R41.82 Encephalitis G04.90 Encephalopathy G93.40 CIDP (chronic inflammatory demyelinating polyneuropathy) ([facility]) G61.81 Sepsis ([facility]) A41.9 Bacteremia R78.81 Hypothyroidism E03.9 Hypokalemia E87.6 Type 2 diabetes mellitus with diabetic polyneuropathy ([facility]) E11.42 Primary hypertension I10 Upper GI bleed K92.2 Non-intractable vomiting R11.10 Unintentional weight loss R63.4 Acute metabolic encephalopathy G93.41 MSSA (methicillin susceptible Staphylococcus aureus) septicemia ([facility]) A41.01 CRP elevated R79.82 Bandemia D72.825 Allergy to multiple antibiotics Z88.1 Pyogenic inflammation of bone ([facility]) M86.9 Acute intractable headache R51.9 Acute osteomyelitis of cervical spine ([facility]) M46.22 Abscess in epidural space of cervical [...] Out) 02/17/20 02/17/20 02/17/20 COVID-19 (Ordered) 02/18/20 Rule- Out Test Resulted Nurse Assessment: Last Vital Signs: [...] - PICC - site {Anatomy; iv placement site:[id number]}, insertion date: 07/10/2021 Nursing Mobility/ADLs: Walking Assisted Transfer Assisted Bathing Assisted Dressing Assisted Toileting Assisted Feeding Assisted Piecer Assisted Med Delivery crushed Wound Care Documentation [...] mechanically altered Routes of Feeding: Oral Liquids: [place] Thick Liquids Daily Fluid Restriction: no Last [...] DME order): wheelchair and walker Other Treatments: [facility] Assessment Patient's personal belongings (please select all that are sent with patient): Glasses RN SIGNATURE: CASE MANAGEMENT/SOCIAL WORK SECTION Inpatient Status Date: Readmission Risk Assessment Score: Readmission Risk Risk of Unplanned Readmission: 23 Discharging to Facility/ Agency [facility] Available [facility] Address [address] [place] [id number] Contact Information [phone] Dialysis Facility (if applicable) Name: Address: Dialysis Schedule: Phone: Fax: Interactive Developer/Senior Technical Writer signature: PHYSICIAN SECTION Prognosis: Good Condition at [...] postvoid residual more than 400 mL. Follow-up withurology Follow-up with neurosurgery, cervical collar instructions as per neurosurgery Dr Cevallos Continue antibiotics and follow-up with infectious disease Dr. Aouad Blood sugar checks Premeal's at bedtime and follow-up with SNF physician PT and OT eval and treat Physician Certification: I certify the above information and transfer of Meg Georges is necessary for the continuing treatment of the diagnosis listed and that she requires [facility] Facility for less 30 days. Update Admission H&P: No change in H&P PHYSICIAN SIGNATURE: * Additional Instructions* Tami Vega MD - 07/10/2021 - Continue [...] for any urinary retention documented in this encounterBON [employer] [employer] Work Phone: 1(268) 252-821705-12-2022 History of Present illness Narrative* Vesta Barlow RN - 06/28/2021 7:24 AM EDT Updated sister, Hina. States will be in. * Kati Villarreal RN - 06/28/2021 4:25 AM EDT This nurse called and spoke with Rachel (nurse) at [facility] to get an updated med list. Rachel [...] because she was vomiting. documented in this encounterC[facility] HospitalScutum Phone: 1(337) 304-297203-25-2022 History of Present illness Narrative* Sania Johnson DO - 05/11/2021 1:30 PM EDT The patient tolerated the infusion well without any complications. [facility] in [facility]Ohio[facility] Instructions* Patient Instructions* Tia Baugh PA-C - 05/01/2021 3:14 PM [...] contacting you within the next 24 hours. * Attachments The following attachments cannot be sent through Care Everywhere. * Staph Infection: General Info (Sri Lankan) * Moise (Sri [place]ankan) documented in this [id number] History of Present illness Narrative* Tia Baugh PA-C - 05/01/2021 3:09 PM EDT PATIENT NAME: Meg Joaquin [facility] URGENT CARE: [address] [facility] [id number] DATE OF VISIT: 05/01/2021 DATE OF : [...] finger which occurred 2 days ago while pullinghot food out of a oven. She states [...] without toes, left 01/26/2019 Asthma Atherosclerosis of [place] arteries of left leg with ulceration of other part of foot ([facility]) 03/14/2017 Back problem Bilateral foot-drop 02/01/2016 Callus [...] 11/11/2017 Corns and callosities 03/13/2016 Diabetes mellitus ([facility]) Dystrophic nail 11/15/2016 Foot cramps Foot ulcer [...] lower leg with muscle involvement without evidenceof necrosis ([facility]) 03/14/2017 Non-pressure chronic ulcer of right ankle limited to breakdown of skin ([facility]) 08/14/2016 Nondisplaced fracture of proximal phalanx of right great toe 09/19/2017 Onychomycosis 12/13/2015 Osteomyelitis ([facility]) 04/23/2019 Peripheral vascular disease ([facility]) 08/17/2019 Pre-ulcerative calluses 08/13/2018 Right foot ulcer ([facility]) 09/26/2014 Shortness of breath Sprain of calcaneofibular [...] Type 2 diabetes mellitus with foot ulcer ([facility]) 06/19/2016 Type 2 diabetes, uncontrolled, with peripheral circulatory disorder ([facility]) 03/28/2017 Xerosis cutis 01/17/2016 Family History Problem [...] drop into the left eye 2 (two) timesa day . carvediloL (COREG) 25 MG tablet 2 (two) times a day. dorzolamide-timoloL (COSOPT) 22.3-6.8 mg/mL ophthalmic solution Apply 1 drop to eye 2 (two) times aday . insulin degludec (Tresiba FlexTouch U-100) 100 [...] are 2 small punctate areas that are oozingpurulent material. They have been swabbed and have been sent for aerobic culture. From the DIP joints approximately the finger is a significant erythemic color without significant edema. Examination of the right thumb shows a split in the pad of the thumb which appears to be chronic in nature it isapproximately 2-1/2-3 cm in length and is gaping at approximately 3 mm at its central portion. It is not healing appropriately. Neurologic: Alert and Oriented PROCEDURE Procedures RESULTS No results found for this or any previous visit (from the past 168 hour(s)). Diagnosis: The primary encounter diagnosis was Partial thickness burn of single finger of right hand excludingthumb, initial encounter. Diagnoses of Wound infection and [...] drop into the left eye 2 (two) timesa day . carvediloL (COREG) 25 MG tablet 2 (two) times a day. dorzolamide-timoloL (COSOPT) 22.3-6.8 mg/mL ophthalmic solution Apply 1 drop to eye 2 (two) times aday . doxycycline hyclate (VIBRAMYCIN) 100 MG capsule [...] for this visit. -Aerobic culture of the vtifgeim-lanb-dgv from the small finger of the right hand -Doxycycline 100 mg twice daily for 7 days -Mupirocin ointment to be applied 3 times daily to the affected area and a light layer -I have contacted Dr. Stanley's office in [place] and hoping to schedule a follow- up visit with Dr. Stanley for further evaluation of the patient's hand. Tia Baugh 05/01/2021 documented in this [id number] History of Present illness Narrative* Jef Sierra Jr., DPM - 04/17/2021 11:25 AM EST Left foot wound Patient is a pleasant 56-year-old high-risk diabetic female following up today for plantar left foot ulceration wound. States that she has been compliantly offloading well with her peg assist and camboot hoping that things are actually well. Physical [...] lotion her foot daily. If this fails toimprove her back, 4 weeks can return otherwise follow-up in 3 months to reevaluate. Low medical complexity decision making based on the waxing waning character of her wounds documented in this [id number] NoteProcedure date: 04/12/2021. Intraocular injection: 1.25 mg Bevacizumab (AVASTIN) 2.5mg/0.1 ML syringe [facility][NOTE 3]: 12240-256-09, Lot: [id number], Expiration date: 06/10/2021 Route: Intravitreal, Site: Right Eye Notes Bevacizumab (Avastin) Intraocular Injection Right Eye - OPHTHALMOLOGY PROCEDURE NOTE PROCEDURE PERFORMED BY: Sharon Hernandez MD ANTIQUE FURNITURE RESTORER(S): None ATTENDING: Sharon Hernandez MD PROCEDURE DATE: 04/12/2021 PROCEDURE START TIME: 10:47 AM INDICATIONS: Treatment of ICD-10-CM 1. Diabetic macular edema E11.311 MO BEVACIZUMAB SOLN - OD EYE: Right (OD) [...] THIS PROCEDURE REQUIRE A UNIVERSAL PROTOCOL? Yes. Portal Protocol is required. Pre-procedure verification was completed. [...] sterile saline and an antibiotic drop was instilled.[facility]02-17-2022 NoteProcedure date: 04/05/2021. Intraocular injection: 1.25 mg Bevacizumab (AVASTIN) 2.5mg/0.1 ML syringe [facility][NOTE 3]: 44142-151-56, Lot: [id number], Expiration date: 05/01/2021 Route: Intravitreal, Site: Left Eye Notes Bevacizumab (Avastin) Intraocular Injection Left Eye - OPHTHALMOLOGY PROCEDURE NOTE PROCEDURE PERFORMED BY: Sharon Hernandez MD ANTIQUE FURNITURE RESTORER(S): None ATTENDING: Sharon Hernandez MD PROCEDURE DATE: 04/05/2021 PROCEDURE START TIME: 11:15 AM INDICATIONS: Treatment of ICD-10-CM 1. 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 Yes. Portal Protocol is required. Pre-procedure verification was completed. [...] sterile saline and an antibiotic drop was instilled.[facility]02-08-2022 History of Present illness Narrative * Jef Sierra Jr., DPM - 03/27/2021 11:19 AM EST Left foot wound Patient is a pleasant 56-year-old high-risk diabetic female following up today for plantar left foot ulceration wound. States that she has been compliantly offloading well with her peg assist and camboot hoping that things are actually well. Physical [...] lotion her foot daily. If this fails toimprove her back, 4 weeks can return otherwise follow-up in 3 weeks to reevaluate. Low medical complexity decision making based on the waxing waning character of her wounds documented in this [id number] Instructions* Patient Instructions* Jef Sierra Jr., DPM - 02/20/2021 10:07 AM EST Continue topical antibiotic ointment and bandaid with padding. documented in this [id number] History of Present illness Narrative* Jef Sierra Jr., DPM - 02/20/2021 10:06 AM EST HPI Chief Complaint Patient presents with Follow-up L foot ulcer - doing better Patient is a pleasant 55-year-old female who comes in today with a plantar left 1st MPJ ulceration,states that she has been doing well but the wound is continued to the bottom of her foot. Past Medical History: Diagnosis Date Abscess of foot without toes, left 01/26/2019 Asthma Atherosclerosis of [place] arteries of left leg with ulceration of [...] lower leg with muscle involvement without evidenceof necrosis (HCC) 03/14/2017 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) 08/14/2016 Nondisplaced fracture of proximal phalanx of right great toe 09/19/2017 Onychomycosis 12/13/2015 Osteomyelitis ([facility]) 04/23/2019 Peripheral vascular disease ([facility]) 08/17/2019 Pre-ulcerative calluses 08/13/2018 Right foot ulcer ([facility]) 09/26/2014 Shortness of breath Sprain of calcaneofibular ligament of right ankle 12/05/2017 Swelling of both ankles Swelling of both lower extremities Thyroid disorder 03/27/2015 Tinea unguium 08/13/2018 Traumatic closed fracture of phalanx of foot with minimal displacement 08/11/2017 Traumatic closed nondisplaced fracture of phalanx of right foot with delayed healing 09/08/2017 Type 2 diabetes mellitus with diabetic neuropathy ([facility]) 11/11/2017 Diabetic autonomic (poly) neuropathy Type 2 diabetes mellitus with foot ulcer ([facility]) 06/19/2016 Type 2 diabetes, uncontrolled, with peripheral circulatory disorder ([facility]) 03/28/2017 Xerosis cutis 01/17/2016 Past Surgical History: [...] the dorsiflexors. Mild discomfort to the great toethough does have profound neuropathy. Derm: Plantar first MPJ ulceration present today at 10 mm x 5 mm x 3 mm depth full-thickness natureto fat. Base is fibrotic does not probe [...] clean dry and intact transtion back to [facility] with Pegassist -Follow-up in 2 weeks to review. documented in this [id number] NoteProcedure date: 02/14/2021. Right Eye Clear. Disc findings include normal observations. Vessel findings include normal. Macula findings include clinically significant macular edema. Normal. Interval change is better. Recommendation for management is to continue treatment. Left Eye Clear. Disc findings include normal observations. Vessel findings include normal. Macula findings include clinically significant macular edema. Normal. Interval change is better. Recommendation for management is to continue treatment.[facility]12-29-2021 Note Procedure date: 02/14/2021. Intraocular injection: 1.25 mg Bevacizumab (AVASTIN) 2.5mg/0.1 ML syringe ND: 39551-617-40, Lot: [id number], Expiration date: 03/07/2021 Route: Intravitreal, Site: Right Eye Notes Bevacizumab (Avastin) Intraocular Injection Right Eye - OPHTHALMOLOGY PROCEDURE NOTE PROCEDURE PERFORMED BY: Sharon Hernandez MD ANTIQUE FURNITURE RESTORER(S): None ATTENDING: Sharon Hernandez MD PROCEDURE DATE: 02/14/2021 PROCEDURE START TIME: 10:25 AM INDICATIONS: Treatment of ICD-10-CM 1. Diabetic macular edema E11.311 MO BEVACIZUMAB SOLN - OD EYE: Right (OD) [...] THIS PROCEDURE REQUIRE A UNIVERSAL PROTOCOL? Yes. Portal Protocol is required. Pre-procedure verification was completed. [...] sterile saline and an antibiotic drop was instilled.[facility]12-27-2021 NoteProcedure date: 02/12/2021. Intraocular injection: 1.25 mg Bevacizumab (AVASTIN) 2.5mg/0.1 ML syringe NDC: 17438-888-05, Lot: [id number], Expiration date: 03/01/2021 Route: Intravitreal, Site: Left Eye Notes Bevacizumab (Avastin) Intraocular Injection Left Eye - OPHTHALMOLOGY PROCEDURE NOTE PROCEDURE PERFORMED BY: Sharon Hernandez MD ANTIQUE FURNITURE RESTORER(S): None ATTENDING: Sharon Hernandez MD PROCEDURE DATE: 02/12/2021 PROCEDURE START TIME: 10:46 AM INDICATIONS: Treatment of ICD-10-CM 1. Diabetic macular edema E11.311 bevacizumab 1.25 MG/0.05 ML Solution MO BEVACIZUMAB SOLN - OS MO BEVACIZUMAB SOLN - OS EYE: Left (OS) [...] THIS PROCEDURE REQUIRE A UNIVERSAL PROTOCOL? Yes. Portal Protocol is required. Pre-procedure verification was completed. [...] sterile saline and an antibiotic drop was instilled.[facility]12-21-2021 History of Present illness Narrative * Jef Sierra Jr., [facility] - 2021 11:32 AM EST HPI Chief Complaint Patient presents with Wound Check Left foot wound check Patient is a pleasant 55-year-old female who comes in today with a plantar left 1st MPJ ulceration,states that she has been doing well but the wound is continued to the bottom of her foot. Past Medical History: Diagnosis Date Abscess of foot without toes, left 01/26/2019 Asthma Atherosclerosis of [place] arteries of left leg with ulceration of [...] of left ankle with fat layer exposed ([facility]) 09/06/2016 Non-pressure chronic ulcer of left lower leg with fat layer exposed ([facility]) 03/28/2017 Non-pressure chronic ulcer of other part of left foot with fat layer exposed ([facility]) 08/14/2017 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 involvement without evidenceof necrosis ([facility]) 03/14/2017 Non-pressure chronic ulcer of right ankle limited to breakdown of skin ([facility]) 08/14/2016 Nondisplaced fracture of proximal phalanx of right great toe 09/19/2017 Onychomycosis 12/13/2015 Osteomyelitis ([facility]) 04/23/2019 Peripheral vascular disease ([facility]) 08/17/2019 Pre-ulcerative calluses 08/13/2018 Right foot ulcer ([facility]) 09/26/2014 Shortness of breath Sprain of calcaneofibular ligament of right ankle 12/05/2017 Swelling of both ankles Swelling of both lower extremities Thyroid disorder 03/27/2015 Tinea unguium 08/13/2018 Traumatic closed fracture of phalanx of foot with minimal displacement 08/11/2017 Traumatic closed nondisplaced fracture of phalanx of right foot with delayed healing 09/08/2017 Type 2 diabetes mellitus with diabetic neuropathy ([facility]) 11/11/2017 Diabetic autonomic (poly) neuropathy Type 2 diabetes mellitus with foot ulcer ([facility]) 06/19/2016 Type 2 diabetes, uncontrolled, with peripheral circulatory disorder ([facility]) 03/28/2017 Xerosis cutis 01/17/2016 Past Surgical History: [...] the dorsiflexors. Mild discomfort to the great toethough does have profound neuropathy. Derm: Plantar first [...] clean dry and intact transtion back to [facility] with Pegassist -Follow-up in 2 weeks to review. documented in this [id number] History of Present illness Narrative* Jef Sierra Jr., DPM - 01/30/2021 10:50 AM EST HPI Chief Complaint Patient presents with Wound Check Left foot wound Patient is a pleasant 55-year-old female who comes in today with a plantar left 1st MPJ ulceration,states that she has been doing well but the wound is continued to the bottom of her foot. Past Medical History: Diagnosis Date Abscess of foot without toes, left 01/26/2019 Asthma Atherosclerosis of [place] arteries of left leg with ulceration of other part of foot ([facility]) 03/14/2017 Back problem Bilateral foot-drop 02/01/2016 Callus of foot 03/16/2019 Cataract Cellulitis and abscess of foot excluding toe 09/26/2014 Cellulitis of great toe, right 10/30/2015 Cellulitis of left foot 08/14/2017 Cellulitis of left lower limb 09/01/2015 Cellulitis of right toe 11/15/2015 Cellulitis of second toe of right foot 11/15/2016 Chronic ulcer of great toe of left foot ([facility]) 03/27/2015 Closed displaced fracture of first metatarsal bone 02/01/2016 Closed displaced fracture of first metatarsal bone of left foot with routine healing 04/17/2015 Contusion of great toe, right 11/04/2016 Contusion of right foot 11/11/2017 Corns and callosities 03/13/2016 Diabetes mellitus ([facility]) Dystrophic nail 11/15/2016 Foot cramps Foot ulcer ([facility]) 02/25/2019 OTHER PART OF FOOT Fracture of third toe, left, closed 02/15/2016 Fungal toenail infection 11/15/2016 GERD (gastroesophageal reflux disease) Glaucoma both eyes Heart murmur High cholesterol 03/27/2015 Hyperlipidemia Hypertension Ingrown toenail 10/30/2015 Leg cramps Metatarsalgia of both feet 10/07/2016 Neuropathy Non-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 ([facility]) 09/06/2016 Non-pressure chronic ulcer of left lower leg with fat layer exposed ([facility]) 03/28/2017 Non-pressure chronic ulcer of other part of left foot with fat layer exposed ([facility]) 08/14/2017 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 involvement without evidenceof necrosis ([facility]) 03/14/2017 Non-pressure chronic ulcer of right ankle limited to breakdown of skin ([facility]) 08/14/2016 Nondisplaced fracture of proximal phalanx of right great toe 09/19/2017 Onychomycosis 12/13/2015 Osteomyelitis ([facility]) 04/23/2019 Peripheral vascular disease ([facility]) 08/17/2019 Pre-ulcerative calluses 08/13/2018 Right foot ulcer [...] the dorsiflexors. Mild discomfort to the great toethough does have profound neuropathy. Derm: Plantar first [...] clean dry and intact transtion back to [facility] with Pegassist -Follow-up in 1 weeks to review. documented in this [id number] Instructions* Patient Instructions* Jef Sierra Jr., DPM - 01/30/2021 10:50 AM EST Continue ashu at home documented in this [id number] History of Present illness Narrative* Jef Sierra Jr., DPM - 01/24/2021 4:29 PM EST HPI Chief Complaint Patient presents with Wound Check Left foot wound Patient is a pleasant 55-year-old female who comes in today with a plantar left 1st MPJ ulceration,states that she has been doing well but the wound is continued to the bottom of her foot. Past Medical History: Diagnosis Date Abscess of foot without toes, left 01/26/2019 Asthma Atherosclerosis of [place] arteries of left leg with ulceration of [...] 11/11/2017 Corns and callosities 03/13/2016 Diabetes mellitus ([facility]) Dystrophic nail 11/15/2016 Foot cramps Foot ulcer ([facility]) 02/25/2019 OTHER PART OF FOOT Fracture of third toe, left, closed 02/15/2016 Fungal toenail infection 11/15/2016 GERD (gastroesophageal reflux disease) Glaucoma both eyes Heart murmur High cholesterol 03/27/2015 Hyperlipidemia Hypertension Ingrown toenail 10/30/2015 Leg cramps Metatarsalgia of both feet 10/07/2016 Neuropathy Non-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 ([facility]) 09/06/2016 Non-pressure chronic ulcer of left lower leg with fat layer exposed ([facility]) 03/28/2017 Non-pressure chronic ulcer of other part of left foot with fat layer exposed (HCC) 08/14/2017 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 involvement without evidenceof necrosis ([facility]) 03/14/2017 Non-pressure chronic ulcer of right ankle limited to breakdown of skin ([facility]) 08/14/2016 Nondisplaced fracture of proximal phalanx of right great toe 09/19/2017 Onychomycosis 12/13/2015 Osteomyelitis ([facility]) 04/23/2019 Peripheral vascular disease ([facility]) 08/17/2019 Pre-ulcerative calluses 08/13/2018 Right foot ulcer ([facility]) 09/26/2014 Shortness of breath Sprain of calcaneofibular ligament of right ankle 12/05/2017 Swelling of both ankles Swelling of both lower extremities Thyroid disorder 03/27/2015 Tinea unguium 08/13/2018 Traumatic closed fracture of phalanx of foot with minimal displacement 08/11/2017 Traumatic closed nondisplaced fracture of phalanx of right foot with delayed healing 09/08/2017 Type 2 diabetes mellitus with diabetic neuropathy ([facility]) 11/11/2017 Diabetic autonomic (poly) neuropathy Type 2 diabetes mellitus with foot ulcer ([facility]) 06/19/2016 Type 2 diabetes, uncontrolled, with peripheral circulatory disorder ([facility]) 03/28/2017 Xerosis cutis 01/17/2016 Past Surgical History: [...] the dorsiflexors. Mild discomfort to the great toethough does have profound neuropathy. Derm: Plantar first [...] 1 weeks to review. documented in this [id number] History of Present illness Narrative* Jef Sierra Jr., DPM - 01/16/2021 11:27 AM EST HPI Chief Complaint Patient presents with Wound Infection Left foot Nail Care Patient is a pleasant 55-year-old female who comes in today with a plantar left 1st MPJ ulceration,states that she has been doing well but the wound is continued to the bottom of her foot. Past Medical History: Diagnosis Date Abscess of foot without toes, left 01/26/2019 Asthma Atherosclerosis of [place] arteries of left leg with ulceration of other part of foot ([facility]) 03/14/2017 Back problem Bilateral foot-drop 02/01/2016 Callus [...] 11/11/2017 Corns and callosities 03/13/2016 Diabetes mellitus ([facility]) Dystrophic nail 11/15/2016 Foot cramps Foot ulcer ([facility]) 02/25/2019 OTHER PART OF FOOT Fracture of [...] lower leg with muscle involvement without evidenceof necrosis ([facility]) 03/14/2017 Non-pressure chronic ulcer of right ankle limited to breakdown of skin ([facility]) 08/14/2016 Nondisplaced fracture of proximal phalanx of right great toe 09/19/2017 Onychomycosis 12/13/2015 Osteomyelitis ([facility]) 04/23/2019 Peripheral vascular disease ([facility]) 08/17/2019 Pre-ulcerative calluses 08/13/2018 Right foot ulcer ([facility]) 09/26/2014 Shortness of breath Sprain of calcaneofibular ligament of right ankle 12/05/2017 Swelling of both ankles Swelling of both lower extremities Thyroid disorder 03/27/2015 Tinea unguium 08/13/2018 Traumatic closed fracture of phalanx of foot with minimal displacement 08/11/2017 Traumatic closed nondisplaced fracture of phalanx of right foot with delayed healing 09/08/2017 Type 2 diabetes mellitus with diabetic neuropathy ([facility]) 11/11/2017 Diabetic autonomic (poly) neuropathy Type 2 diabetes mellitus with foot ulcer ([facility]) 06/19/2016 Type 2 diabetes, uncontrolled, with peripheral circulatory disorder ([facility]) 03/28/2017 Xerosis cutis 01/17/2016 Past Surgical History: [...] the dorsiflexors. Mild discomfort to the great toethough does have profound neuropathy. Derm: Plantar first [...] 1 weeks to review. documented in this [id number] Instructions* Patient Instructions* Jef Sierra Jr., DPM - 01/16/2021 11:27 AM EST Keep bandage clean dry and intat documented in this [id number] History of Present illness Narrative* Jef Sierra Jr., DPM - 01/09/2021 8:57 AM EST HPI Chief Complaint Patient presents with Wound Check Left foot Patient is a pleasant 55-year-old female who comes in today with a plantar left 1st MPJ ulceration,states that she has been doing well but the wound is continued to the bottom of her foot. Past Medical History: Diagnosis Date Abscess of foot without toes, left 01/26/2019 Asthma Atherosclerosis of [place] arteries of left leg with ulceration of other part of foot ([facility]) 03/14/2017 Back problem Bilateral foot-drop 02/01/2016 Callus [...] 11/11/2017 Corns and callosities 03/13/2016 Diabetes mellitus ([facility]) Dystrophic nail 11/15/2016 Foot cramps Foot ulcer ([facility]) 02/25/2019 OTHER PART OF FOOT Fracture of third toe, left, closed 02/15/2016 Fungal toenail infection 11/15/2016 GERD (gastroesophageal reflux disease) Glaucoma both eyes Heart murmur High cholesterol 03/27/2015 Hyperlipidemia Hypertension Ingrown toenail 10/30/2015 Leg cramps Metatarsalgia of both feet 10/07/2016 Neuropathy Non-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 ([facility]) 09/06/2016 Non-pressure chronic ulcer of left lower leg with fat layer exposed ([facility]) 03/28/2017 Non-pressure chronic ulcer of other part of left foot with fat layer exposed ([facility]) 08/14/2017 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 involvement without evidenceof necrosis ([facility]) 03/14/2017 Non-pressure chronic ulcer of right ankle limited to breakdown of skin ([facility]) 08/14/2016 Nondisplaced fracture of proximal phalanx of right great toe 09/19/2017 Onychomycosis 12/13/2015 Osteomyelitis ([facility]) 04/23/2019 Peripheral vascular disease ([facility]) 08/17/2019 Pre-ulcerative calluses 08/13/2018 Right foot ulcer ([facility]) 09/26/2014 Shortness of breath Sprain of calcaneofibular [...] 2 diabetes, uncontrolled, with peripheral circulatory disorder ([facility]) 03/28/2017 Xerosis cutis 01/17/2016 Past Surgical History: [...] the dorsiflexors. Mild discomfort to the great toethough does have profound neuropathy. Derm: Plantar first [...] 1 weeks to review. documented in this [id number] Instructions* Patient Instructions* Jef Sierra Jr., DPM - 01/09/2021 8:49 AM EST Keep bandage clean dry and intact documented in this [id number] Instructions* Patient Instructions* Jef Sierra Jr., DPM - 01/02/2021 9:19 AM EST Keep bandages clean dry and intact for week documented in this [id number] History of Present illness Narrative* Jef Sierra Jr., DPM - 01/02/2021 9:18 AM EST HPI Chief Complaint Patient presents with Wound Check Left foot Patient is a pleasant 55-year-old female who comes in today with a plantar left 1st MPJ ulceration,states that she has been doing well but the wound is continued to the bottom of her foot. Past Medical History: Diagnosis Date Abscess of foot without toes, left 01/26/2019 Asthma Atherosclerosis of [place] arteries of left leg with ulceration of [...] 11/11/2017 Corns and callosities 03/13/2016 Diabetes mellitus ([facility]) Dystrophic nail 11/15/2016 Foot cramps Foot ulcer ([facility]) 02/25/2019 OTHER PART OF FOOT Fracture of [...] lower leg with muscle involvement without evidenceof necrosis (HCC) 03/14/2017 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) 08/14/2016 Nondisplaced fracture of proximal phalanx of right great toe 09/19/2017 Onychomycosis 12/13/2015 Osteomyelitis ([facility]) 04/23/2019 Peripheral vascular disease ([facility]) 08/17/2019 Pre-ulcerative calluses 08/13/2018 Right foot ulcer ([facility]) 09/26/2014 Shortness of breath Sprain of calcaneofibular ligament of right ankle 12/05/2017 Swelling of both ankles Swelling of both lower extremities Thyroid disorder 03/27/2015 Tinea unguium 08/13/2018 Traumatic closed fracture of phalanx of foot with minimal displacement 08/11/2017 Traumatic closed nondisplaced fracture of phalanx of right foot with delayed healing 09/08/2017 Type 2 diabetes mellitus with diabetic neuropathy ([facility]) 11/11/2017 Diabetic autonomic (poly) neuropathy Type 2 diabetes mellitus with foot ulcer ([facility]) 06/19/2016 Type 2 diabetes, uncontrolled, with peripheral circulatory disorder ([facility]) 03/28/2017 Xerosis cutis 01/17/2016 Past Surgical History: [...] the dorsiflexors. Mild discomfort to the great toethough does have profound neuropathy. Derm: Plantar first MPJ ulceration present today at 10 mm x 8 mm x 3 mm depth full-thickness natureto fat. Base is fibrotic does not probe [...] 1 weeks to review. documented in this [id number] NoteProcedure date: 12/27/2020. Intraocular injection: 1.25 mg Bevacizumab (AVASTIN) 2.5mg/0.1 ML syringe ND: [id number], Lot: [id number], Expiration date: 12/29/2020 Route: Intravitreal, Site: Left Eye Notes Bevacizumab (Avastin) Intraocular Injection Left Eye - OPHTHALMOLOGY PROCEDURE NOTE PROCEDURE PERFORMED BY: Sharon Hernandez MD ANTIQUE FURNITURE RESTORER(S): None ATTENDING: Sharon Hernandez MD PROCEDURE DATE: 12/27/2020 PROCEDURE START TIME: 10:17 AM INDICATIONS: Treatment of ICD-10-CM 1. Diabetic macular edema E11.311 OCT/HRT MACULA OU FUNDUS PHOTOGRAPHY-OU MO BEVACIZUMAB SOLN - OS MO BEVACIZUMAB SOLN - OS CANCELED: MO BEVACIZUMAB SOLN - OD EYE: Left (OS) [...] THIS PROCEDURE REQUIRE A UNIVERSAL PROTOCOL? Yes. Portal Protocol is required. Pre-procedure verification was completed. [...] sterile saline and an antibiotic drop was instilled.[facility]11-10-2021 NoteProcedure date: 12/27/2020. Right Eye Clear. Disc findings include normal observations. Vessel findings include normal. Macula findings include clinically significant macular edema. Normal. Interval change is better. Recommendation for management is to continue treatment. Left Eye Clear. Disc findings include normal observations. Vessel findings include normal. Macula findings include clinically significant macular edema. Normal. Interval change is better. Recommendation for management is to continue treatment.[facility]11-02-2021 Instructions* Patient Instructions* Jef Sierra Jr., DPM - 12/19/2020 11:28 AM EDT Keep bandage clean dry and intact documented in this [id number] History of Present illness Narrative* Jef Sierra Jr., DPM - 12/19/2020 11:27 AM EDT HPI Chief Complaint Patient presents with Follow-up L foot ulcer Patient is a pleasant 55-year-old female who comes in today with a plantar left 1st MPJ ulceration,states that she has been doing well but the wound is continued to the bottom of her foot. Past Medical History: Diagnosis Date Abscess of foot without toes, left 01/26/2019 Asthma Atherosclerosis of tuscarora arteries of left leg with ulceration of [...] lower leg with muscle involvement without evidenceof necrosis (HCC) 03/14/2017 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) 08/14/2016 Nondisplaced fracture of proximal phalanx of right great toe 09/19/2017 Onychomycosis 12/13/2015 Osteomyelitis ([facility]) 04/23/2019 Peripheral vascular disease ([facility]) 08/17/2019 Pre-ulcerative calluses 08/13/2018 Right foot ulcer ([facility]) 09/26/2014 Shortness of breath Sprain of calcaneofibular [...] Friends and Family: Not on file Attends Islam Services: Not on file Active Member of [...] the dorsiflexors. Mild discomfort to the great toethough does have profound neuropathy. Derm: Plantar first MPJ ulceration present today at 10 mm x 8 mm x 3 mm depth full-thickness natureto fat. Base is fibrotic does not probe [...] 1 weeks to review. documented in this [id number] NoteProcedure date: 12/13/2020. Right Eye Clear. Disc findings include normal observations. Vessel findings include normal. Macula findings include clinically significant macular edema. Normal. Interval change is same. Recommendation for management is to continue treatment. Left Eye Clear. Disc findings include normal observations. Vessel findings include normal. Macula findings include clinically significant macular edema. Normal. Interval change is same. Recommendation for management is to continue treatment.[facility]10-27-2021 Note Procedure date: 12/13/2020. Right Eye Quality was good. Findings include subretinal fluid. Interval change is same. Recommendation for management is to continue treatment. Left Eye Quality was good. Findings include subretinal fluid. Interval change is same. Recommendation for management is to continue treatment.[facility]10-27-2021 NoteProcedure date: 12/13/2020. Intraocular injection: 1.25 mg Bevacizumab (AVASTIN) 2.5mg/0.1 ML syringe [facility][NOTE 3]: 10432-557-66, Lot: [id number], Expiration date: 12/26/2020 Route: Intravitreal, Site: Right Eye Notes Bevacizumab (Avastin) Intraocular Injection Right Eye - OPHTHALMOLOGY PROCEDURE NOTE PROCEDURE PERFORMED BY: Sharon Hernandez MD ANTIQUE FURNITURE RESTORER(S): None ATTENDING: Sharon Hernandez MD PROCEDURE DATE: 12/13/2020 PROCEDURE START TIME: 10:05 AM INDICATIONS: Treatment of ICD-10-CM 1. Diabetic macular edema E11.311 bevacizumab 1.25 MG/0.05 ML Solution MO BEVACIZUMAB SOLN - OD OCT/HRT MACULA OU FUNDUS PHOTOGRAPHY-OU MO BEVACIZUMAB SOLN - OD OCT/HRT MACULA OU [...] THIS PROCEDURE REQUIRE A UNIVERSAL PROTOCOL? Yes. Portal Protocol is required. Pre-procedure verification was completed. [...] sterile saline and an antibiotic drop was instilled.[facility]08-31-2021 History of Present illness Narrative * Jef Sierra Jr., DPM - 10/17/2020 8:22 AM EDT Left foot ulceration Patient is a pleasant 55-year-old high-risk diabetic female who comes in today with a new and acuteon chronic left foot ulcer. States that she [...] tone, can easily wiggle toes without any clickingor catching. Assessment and plan: Patient is a [...] on chronic nature of her ulceration as wellas elevated morbidity. documented in this [id number] NoteProcedure date: 10/10/2020. Right Eye Quality was good. Interval change is same. Recommendation for management is to change treatment. Left Eye Quality was poor. Interval change is same. Recommendation for management is to change treatment. Notes OD: inferior thinning, stable to 2019 OS: polar thinning, stable to 2019 GCC: OD: stable inferotemporal thinning OS: complicated by poor quality scan due to [id number] History of Present illness Narrative* Olga Lidia Matos MD - 10/10/2020 1:45 PM EDT Assessment/Plan: 1. POAG OU, severe OU Current [...] progession and resultant irreversible visual loss. The patientvoiced understanding. 2. DME OU - management with Dr. Hernandez - IV injection recently OS with Dr. Hernandez PLAN: Return: 4 weeks: IOP check then pre-op OD Written instructions provided, all questions answered Olga Lidia Matos M.D. Posting Machine Operator of Ophthalmology Glaucoma Division [facility] [place] Department of Ophthalmology and Visual [...] a repeat glaucoma evaluation and IOP check. Patientdenies any eye pain, recently had injection OS with Dr. Hernandez. Additional details from tech HPI reviewed and I agree with documentation Ocular Medications: 10/10/2020 Exam: CCT: QI=842 m; LP=054 m IOP: OD: 25, OS: 16, 10/10/2020 [...] s Vessel s Periph Periph Ancillary Tests: * Trinity Joseph - 10/10/2020 1:45 PM EDT REASON FOR VISIT Meg Georges presents to [...] time was spent with patient performing the software test technician work of this visit. [facility] Instructions* Patient Instructions* Olga Lidia Matos MD - 10/10/2020 1:45 PM EDT Right Eye: Dorzolamide/Timolol 2 times a day Rhopressa 1 drop at bedtime Left Eye: Dorzolamide/Timolol 2 times a day [facility] History of Present illness Narrative* Jovon Bowers MD - 10/03/2020 9:30 AM EDT I was available on site at [place] for any urgent infusion issues. Jovon Bowers MD Professor of Neurology Director, Neuromuscular Division documented in this encounterOS[facility] History of Present illness Narrative* Franck Mtz MD - 09/26/2020 12:00 PM EDT [facility] Patient is following up for [...] with unremarkable LFTs. TSH 6.89 with a T4that was normal. A1c 9.7. White blood cell count 8.59, hemoglobin 10.7, platelets 377. No monoclonal recently, though she did have an IgG kappa in the past. Normal kappa to lambda ratio recently. Normal bone density in 2019. 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 Mag, lyme, Anca, CCP, transglutaminase, B6,B12, folate, methylmalonic acid unremarkable. B1 high in [...] UNIT/ML Solution Pen-injector injection, 3 samples given--Lot [id number], exp 10/2021, Disp: 3 Prefilled Pen/Syringe, Rfl: 0 Insulin Lispro, 1 Unit Dial, 100 UNIT/ML Solution Pen-injector, Use less than 30 units daily with sliding scale., Disp: 5 Prefilled Pen/Syringe, Rfl: 3 Multiple Vitamin (MULTI-DAY PO), take 1 tablet by mouth daily.., Disp: , Rfl: tiZANidine 4 MG Tab tablet, tiZANidinetiZANidine (ZANAFLEX) 4 MG tablet as needed. [facility] ([id number]), Disp: , Rfl: acetaZOLAMIDE 250 MG tablet, Take 1 tablet by mouth 2 times daily. 90 day supply (Patient not taking: Reported on 09/13/2020), Disp: 180 tablet, Rfl: 1 cyanocobalamin 1000 MCG Tab, Take 2 tablets by mouth daily., Disp: 60 tablet, Rfl: 11 Insulin Degludec (Tresiba FlexTouch) 100 UNIT/ML Solution Pen-injector injection, 3 Samples given [id number], Exp 10/2021 (Patient not taking: Reported on 09/26/2020), Disp: 9 mL, Rfl: 0 Insulin Lispro, 1 Unit Dial, (HumaLOG KwikPen) 100 UNIT/ML Solution Pen- injector, Sample given [id number], exp 09/2022 (Patient not taking: Reported on 09/13/2020), Disp: 1 Prefilled Pen/Syringe, Rfl: 0 Insulin Lispro, 1 Unit Dial, (HumaLOG KwikPen) 100 UNIT/ML Solution Pen- injector, Sample given [id number], Exp-09/2022 (Patient not taking: Reported on 09/26/2020), [...] Social Gatherings with Friends and Family: Attends Islam Services: Active Member of Clubs or Organizations: Attends Club or Organization Meetings: Marital Status: Intimate Partner Violence: Fear of Current or Ex-Partner: Emotionally Abused: Physically Abused: Sexually Abused: documented in this [facility]08-10-2021 Instructions* Patient Instructions* Franck Mtz MD - 09/26/2020 12:00 PM [...] your results come back. documented in this [facility]08-05-2021 History of Present illness Narrative* Sania Johnson DO - 09/21/2020 11:30 AM EDT The patient tolerated the infusion well without any complications. documented in this [facility]07-29-2021 History of Present illness Narrative* Jef Sierra Jr., MARK - 09/14/2020 3:11 PM EDT HPI Chief Complaint Patient presents with Foot Problem left grt toe blister- new brace causing rubbing Patient is a pleasant 55-year-old female who comes in today with a 1 week history of left great toeblister. States that she is worried about it as she has had many problems. She believes is from hernew set of custom dorsiflexor he braces for her profound dropfoot and profound peripheral neuropathy from her diabetes. She denies any overt trauma to her great toe but states that she would like to see this addressed. Past Medical History: Diagnosis Date Abscess of foot without toes, left 01/26/2019 Asthma Atherosclerosis of tuscarora arteries of left leg with ulceration of other part of foot ([facility]) 03/14/2017 Back problem Bilateral foot-drop 02/01/2016 Callus of foot 03/16/2019 Cataract Cellulitis and abscess of foot excluding toe 09/26/2014 Cellulitis of great toe, right 10/30/2015 Cellulitis of left foot 08/14/2017 Cellulitis of left lower limb 09/01/2015 Cellulitis of right toe 11/15/2015 Cellulitis of second toe of right foot 11/15/2016 Chronic ulcer of great toe of left foot ([facility]) 03/27/2015 Closed displaced fracture of first metatarsal bone 02/01/2016 Closed displaced fracture of first metatarsal bone of left foot with routine healing 04/17/2015 Contusion of great toe, right 11/04/2016 Contusion of right foot 11/11/2017 Corns and callosities 03/13/2016 Diabetes mellitus ([facility]) Dystrophic nail 11/15/2016 Foot cramps Foot ulcer ([facility]) 02/25/2019 OTHER PART OF FOOT Fracture of third toe, left, closed 02/15/2016 Fungal toenail infection 11/15/2016 GERD (gastroesophageal reflux disease) Glaucoma both eyes Heart murmur High cholesterol 03/27/2015 Hyperlipidemia Hypertension Ingrown toenail 10/30/2015 Leg cramps Metatarsalgia of both feet 10/07/2016 Neuropathy Non-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 ([facility]) 09/06/2016 Non-pressure chronic ulcer of left lower leg with fat layer exposed ([facility]) 03/28/2017 Non-pressure chronic ulcer of other part of left foot with fat layer exposed ([facility]) 08/14/2017 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 involvement without evidenceof necrosis ([facility]) 03/14/2017 Non-pressure chronic ulcer of right ankle limited to breakdown of skin ([facility]) 08/14/2016 Nondisplaced fracture of proximal phalanx of right great toe 09/19/2017 Onychomycosis 12/13/2015 Osteomyelitis ([facility]) 04/23/2019 Peripheral vascular disease ([facility]) 08/17/2019 Pre-ulcerative calluses 08/13/2018 Right foot ulcer ([facility]) 09/26/2014 Shortness of breath Sprain of calcaneofibular ligament of right ankle 12/05/2017 Swelling of both ankles Swelling of both lower extremities Thyroid disorder 03/27/2015 Tinea unguium 08/13/2018 Traumatic closed fracture of phalanx of foot with minimal displacement 08/11/2017 Traumatic closed nondisplaced fracture of phalanx of right foot with delayed healing 09/08/2017 Type 2 diabetes mellitus with diabetic neuropathy ([facility]) 11/11/2017 Diabetic autonomic (poly) neuropathy Type 2 diabetes mellitus with foot ulcer ([facility]) 06/19/2016 Type 2 diabetes, uncontrolled, with peripheral circulatory disorder ([facility]) 03/28/2017 Xerosis cutis 01/17/2016 Past Surgical History: [...] Social Gatherings with Friends and Family: Attends Islam Services: Active Member of Clubs or Organizations: [...] deep cultures were taken and passed off thesurgical field. A copious amount of normal saline was used to irrigate the same location and postopbandage was applied. Low medical complexity decision making based on the waxing and waning character of her diabetes andneed for procedure. documented in this [id number] History of Present illness Narrative* Luis Miguel Kaur MD - 09/13/2020 9:45 AM EDT History of Present Illness Type 2 diabetes, insulin-dependent: This is a follow-up visit to the office. Patient states she wasdiagnosed with diabetes in the late . She is currently prescribed Humalog 7 units plus slidingscale and Tresiba 25 units daily. Admits she [...] open ulcerations on her fingers. There was anamputation of a left 3rd finger, initiated by an ulcer likely from a glucometer check. She also hasvery poor dexterity, and cannot manipulate the glucometer testing strips and lancets into position.She cannot make a fist. She is currently [...] a neurologist. She is also seeing a pst specialist and wound care. She has a follow-up [...] C-peptide level elevated at 3.4. Juanpablo download unableto be reviewed as very little data. She [...] feels. To get her in touch with [employer], however she does not answer her phone if she does not recognize the number, so likely has been missing their calls. We will coordinate with [employer]; the tracking features of [employer] will undoubtedly help us help her. Hypothyroidism: TSH above optimal. She does not want to takeyroxine therapy. We will check TSH withnext labs. Hyperlipidemia: Appears to have transaminitis with statin therapy, LFTs improving. So far tolerating Zetia, we will check LFTs with next routine blood work. * Alaina Rdz - 09/13/2020 9:45 AM EDT Nurse Note: Review of Systems Constitutional: Positive [...] The patient is nervous/anxious. Patient last seen in service educator 01/27/2018 Nursing Assessment: [facility] Exam [facility] Diagnosis Asthma, unspecified asthma severity, unspecified whether [...] lower leg with muscle involvement without evidenceof necrosis (HCC) [facility] Great toe pain, left- Primary Foot abscess, left Cellulitis and abscess of foot, except toes [facility] Diagnosis Chronic ulcer of great toe of left foot, unspecified ulcer stage (HCC)- Primary [facility] Diagnosis Ulcer of left foot with fat layer exposed (HCC)- Primary [facility] Diagnosis Ulcer of left foot with fat layer exposed (HCC)- Primary [facility] Diagnosis Non-pressure chronic ulcer of other part of left foot with fat layer exposed (HCC)- Primary Ulcer of left foot with fat layer exposed (HCC) [facility] Diagnosis 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)- Primary [facility] Diagnosis 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) [facility] Diagnosis 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)- Primary [facility] Diagnosis Partial thickness burn of single finger of right hand excluding thumb, initial encounter- Primary Wound infection Posttraumatic wound infection not elsewhere classified Laceration of right thumb, initial encounter [facility] Diagnosis 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 [facility]* Diagnosis Type 2 diabetes mellitus with diabetic polyneuropathy, with long-term current use of insulin- Primary Acquired hypothyroidism Unspecified hypothyroidism Diabetic macular edema- Primary 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 Diabetic macular edema- Primary [facility] Diagnosis 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 Diabetic macular edema- Primary [facility]* Diagnosis Primary open angle glaucoma (POAG) of right eye, severe stage- Primary Primary open angle glaucoma (POAG) of left eye, severe stage Diabetic macular edema Pseudophakia Lens replaced by other means [facility] Diagnosis Non-intractable vomiting with nausea, unspecified vomiting type- Primary Altered mental status, unspecified altered mental status type Leukocytosis, unspecified type documented in this encounter [employer] Phone: evaluation note* Diagnosis Sepsis (HCC)- Primary Stupor Other alteration of consciousness Encephalitis Unspecified cause of encephalitis, myelitis, and encephalomyelitis Acute osteomyelitis of cervical spine (HCC) 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 MSSA (methicillin susceptible Staphylococcus aureus) septicemia ([facility]) Methicillin susceptible staphylococcus aureus septicemia Primary hypertension [...] Acute intractable headache documented in this encounter [facility] [employer] Phone: evaluation note* Diagnosis COVID-19- Primary Pneumonia of left lower lobe due to infectious organism Hypokalemia Hypopotassemia Hypomagnesemia Disorders of magnesium metabolism 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 documented in this encounter [facility] [employer] Phone: evaluation note* Diagnosis COVID- Primary Encephalopathy Encephalopathy, unspecified 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 Hypokalemia Hypopotassemia Primary hypertension Unspecified essential hypertension Type 2 diabetes mellitus with diabetic polyneuropathy ([facility]) Type II or unspecified type diabetes mellitus with neurological manifestations, not stated as uncontrolled Hypothyroidism Unspecified hypothyroidism Hypomagnesemia Disorders of magnesium metabolism CIDP (chronic inflammatory demyelinating polyneuropathy) ([facility]) Chronic inflammatory demyelinating polyneuritis Bacteremia MSSA (methicillin susceptible Staphylococcus aureus) septicemia (HCC) Methicillin susceptible staphylococcus aureus septicemia Bandemia CRP elevated Elevated C-reactive protein (CRP) Metabolic encephalopathy Normocytic anemia Anemia, unspecified Acute respiratory failure with hypoxemia ([facility]) Septic arthritis of cervical spine ([facility]) Pyogenic arthritis, other specified sites Atlantoaxial instability Other joint derangement, not elsewhere classified, other specified site ACP (advance care planning) Other specified counseling Goals of care, counseling/discussion Other specified counseling Encounter for palliative care Feeding difficulties Feeding difficulties and mismanagement On tube feeding diet Pathological fracture of other site, unspecified pathological cause, initial encounter documented in this encounter [employer] Work Phone: evaluation noteNo assessment information available [facility] Work Phone: Evaluation note* Diagnosis Atlantoaxial instability Other joint derangement, not elsewhere classified, other specified site S/P cervical spinal fusion Arthrodesis status documented in this encounter [employer] Phone: [email or web address] note* Diagnosis S/P cervical spinal fusion Arthrodesis status documented in this encounter [employer] Phone: evalkujuhk note* Diagnosis Primary open angle glaucoma (POAG) of both eyes, moderate stage- Primary 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 mellitus (CMS/HCC) Left posterior capsular opacification Unspecified after-cataract Dry eyes Unspecified tear film insufficiency [facility] Diagnosis Other atopic dermatitis- Primary Traumatic ulcer of left foot, unspecified ulcer stage ([facility]) Impetigo [facility] Diagnosis Primary open angle glaucoma [...] Primary Hypopotassemia [facility]* Diagnosis Other iron deficiency anemia- Primary Cough, unspecified type [facility]* Diagnosis Hypocalcemia- Primary Current mild episode of major depressive disorder, unspecified whether recurrent documented in this encounter [facility] Assessments DiagnosisCalf ulcer, left, limited to breakdown of skin (HCC)Type 2 diabetes mellitus with other skin ulcer, without long-term current use of insulin (HCC) DiagnosisType 2 diabetes mellitus without complication, with long-term current use of insulin - PrimaryDiagnosisType 2 diabetes mellitus without complication, with long-term current use of insulin - PrimaryDiagnosisType 2 diabetes mellitus with diabetic polyneuropathy, without long-term current use of insulin - Pr imaryMixed hyperlipidemiaDiagnosisType 2 diabetes mellitus without complication, with long-term current use of insulinDiagnosis Cellulitis- Primary Diagnosis Avulsion of fingernail, initial encounter- Primary Reason for Referral StatusReasonSpecialtyDiagnoses / ProceduresReferred By ContactReferred To ContactNew RequestRheumatology Diagnoses Type 2 diabetes mellitus without complication, with long-term current use of insulin Luis Miguel Kaur MD [address] [place], [place] [id number] History of Present Illness * Luis Miguel [...] a neurologist. 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 [...] FoundNo Family History Records Found Advance Directives TypeDate RecordedPatient RepresentativeExplanationAdvance Directives and Living Will12/20/2019 3:00 PMTypeDate RecordedPatient RepresentativeExplanationACP- Advance DirectiveACP-Power of AttorneyCode StatusDate ActivatedDate Inactivated CommentsFull Code10/09/2017 4:19 PMCode StatusDate ActivatedDate Inactivated CommentsFull Code06/28/2021 9:07 PMCode StatusDate ActivatedDate Inactivated CommentsFull Code06/28/2021 9:07 PM07/10/2021 7:03 PMCode StatusDate ActivatedDate InactivatedCommentsFull Code07/14/2021 4:39 PMFull Code06/28/2021 9:07 PM 07/10/2021 7:03 PMNameRelationshipHealthcare Agent RelationshipCommunicationTammy HeefnerBrother/SisterPrimary Decision Maker* * * Advance Directive Response Recorded Date/ Time Advance Directives No November 29, 2016 1:49pm TypeDate RecordedPatient RepresentativeExplanationACP-Advance Directive08/13/2021 4:27 PMCode StatusDate ActivatedDate InactivatedCommentsFull Code08/22/2021 1:31 AM8 2:06 PMFull Code07/14/2021 4:39 PM08/11/2021 12:08 AMNameRelationship Healthcare Agent RelationshipCommunicationTammi HeefnerBrother/SisterPrimary Decision Maker* * * J JanelleOtherSupplemental (Other) Decision Maker* NameRelationshipHealthcare Agent RelationshipCommunicationTammi Heefner Brother/SisterPrimary Decision Maker* * * Eun PoloOtherSupplemental (Other) Decision Maker* NameRelationshipHealthcare Agent RelationshipCommunicationTalinda Thomas Brother/SisterPrimary Decision Maker* * * Eun PoloOtherSupplemental (Other) Decision Maker* Discharge Instructions * Instructions* Jonathan Camara MD [...] be rechecked at the Emergency Department. [ [address] [place] [address] Services: [place] Office - [address] [address] - Phone Number [phone] [place] Office - 31 [facility] [address] - Phone Number [phone] ] Rest and limit exertion / strenous activity. RETURN if symptoms CHANGE, NOT IMPROVING or need help.Take Medications as prescribed (if prescribed - Please take or use as directed) * Attachments The following attachments cannot be sent through Care Everywhere. * Cellulitis (Sri Lankan) in this encounter* Instructions* Andres Lubin MD [...] sent through Care Everywhere. * Nail Avulsion (Sri Lankan) documented in this encounter Additional Source Comments Reason for Visit (unrecogniz ed section and content) ReasonCommentsMedication RefillReasonCommentsAppointmentReasonCommentsFollow-up DiabetesReasonCommentsWound Infectionr legReasonCommentsFinger InjuryReason CommentsFoot Problemleft grt toe blister- new brace causing rubbingReason CommentsFollow-upL great toe ulcerReasonCommentsFollow-upL foot ulcerReason CommentsWound CheckLeft footReasonCommentsWound InfectionLeft footNail Care ReasonCommentsWound CheckLeft foot woundReasonCommentsWound CheckLeft foot wound checkReasonCommentsFollow-upL foot ulcer - doing betterReasonCommentsWound Check Fu left great toe woundReasonCommentsWound CheckWC left foot.ReasonCommentsHand InjuryBurnt RT 5th digit of hand 2 days ago on hot food- now blister has popped-- also has a small laceration on RT thumb x 2+ weeks- pt has neuropathy and it is not healingReasonCommentsInfusion VisitGamunexSpecialtyDiagnoses / ProceduresReferred By ContactReferred To Contact Diagnoses CIDP (chronic inflammatory demyelinating polyneuropathy) Krystyna Busby, [facility] [address] [facility] [address] [place] [address] Infusion [address] [facility] [address] [place] [address] Referral IDStatusReasonStart DateExpiration DateVisits RequestedVisits [id number] Not Needed06/24/[id number]-tdSuhokbmh Thyroid ProblemReasonCommentsInfusion VisitIVIGSpecialtyDiagnoses / Procedures Referred By ContactReferred To Contact Diagnoses CIDP (chronic inflammatory demyelinating polyneuropathy) Kryst[facility]bySS[facility] [address] [facility] [id number] [place], [place] [id number] Infusion Suite [facility] [address] [place] [address] PzxmcfUvczlmlwBopxya-yvPnsgzzWafkaxwkLsrvazfqAgzyzu-sqIqdubrFqzxmtvlYqlughCp came from [facility]. Per EMS she was outside and was brought back inside they were unaware she was outside. Per [facility] and [facility] she is having bizarre behaviorEmesisAltered Mental StatusReasonCommentsAltered Mental Status SpecialtyDiagnoses / ProceduresReferred By ContactReferred To Contact Diagnoses Altered mental state [facility] Emergency Dept [address] [place] [address] [facility] [address] [place] [address] Referral IDStatusReasonStart DateExpiration DateVisits RequestedVisits [id number]reGcdoxbk was at outpatient infusion center for blood transfusion/low potassium transferred to ED forevaluationReason CommentsFollow-upEye ExamReasonCommentsEczemaReasonCommentsGlaucoma INFORMATION SOURCE (unrecogn ized section and content) DATE CREATED AUTHOR 04/08/2018 [facility] DATE CREATED AUTHOR AUTHOR'S ORGANIZ ATION 06/07/2019 [facility] DATE CREATED AUTHOR AUTHOR'S ORGANIZ ATION 12/25/2019 [facility] DATE CREATED AUTHOR AUTHOR'S ORGANIZ ATION 02/13/2020 [facility] DATE CREATED AUTHOR AUTHOR'S ORGANIZ ATION 04/18/[address] [facility] DATE CREATED AUTHOR AUTHOR'S ORGANIZ ATION 05/02/[address] [facility] DATE CREATED AUTHOR AUTHOR'S ORGANIZ ATION 05/07/[address] [facility] DATE CREATED AUTHOR AUTHOR'S ORGANIZ ATION 05/09/2021 [facility] DATE CREATED AUTHOR AUTHOR'S ORGANIZ ATION 05/15/2021 [facility] DATE CREATED AUTHOR AUTHOR'S ORGANIZ ATION 06/01/2021 [facility] DATE CREATED AUTHOR AUTHOR'S ORGANIZ ATION 06/13/2021 [facility] DATE CREATED AUTHOR AUTHOR'S ORGANIZ ATION 09/05/2021 [facility] DATE CREATED AUTHOR AUTHOR'S ORGANIZ ATION 10/30/2021 [facility] DATE CREATED AUTHOR AUTHOR'S ORGANIZ ATION 11/27/2021 [facility] DATE CREATED AUTHOR AUTHOR'S ORGANIZ ATION 12/10/2021 [facility] DATE CREATED AUTHOR AUTHOR'S ORGANIZ ATION 11/25/2022 [facility] DATE CREATED AUTHOR AUTHOR'S ORGANIZ ATION 01/26/2023 [facility] DATE CREATED AUTHOR AUTHOR'S ORGANIZ ATION 05/07/2024 [facility] DATE CREATED AUTHOR AUTHOR'S ORGANIZ ATION 09/28/2024 [facility] EPIC Lindsey Bradshaw LPN - 05/29/2018 9:54 AM Jonathan Curiel MD - 05/29/2018 9:49 AM EDT ED Notes (unrecognized secti on and content) [...] wounds on the right leg became red andhad some pus on the bandage. Patient states she has not had fevers nausea vomiting or diarrhea. Shesays she frequently hits her shins on stepstools [...] does have good pulses and good cap refill.Sensation is diminished in the lower extremity which the patient says he has had for some time. No other obvious injuries except. Dorsalis pedis and posterior tibial pulses present. Patient does havesome calluses on the feet and some onychomycosis [...] for Bactroban because of the possibility of methicillin- resistant staph aureus. Patient will follow up with [...] or assistance. Jonathan Camara MD 05/29/18 1003 * Thu Garcia, RN - 05/29/2018 9:36 AM EDT Pt states that she has wounds on b/l legs x several months . Denies fever. States dm. in this encounter* Ashwini Rios RN - 12/20/2019 3:53 PM EST Pt given d/c instructions and follow up info. No questions. Pt amb to exit with steady gait. Resp remain easy and unlabored. No distress. * Ashwini Rios RN - 12/20/2019 3:53 PM EST Upon cleaning of pt wound and placement of dressing. It is noted that pt finger is waxy on end. Physician updated and concurs with assessment. Pt to f/u with pcp and possibly vascular surgeon. * Ashwini Rios RN - 12/20/2019 2:38 PM EST Pt reports that she first noticed the nail on her index finger on right hand coming off about a month ago. Pt reports increased bleeding to the area and that nail is about 3/4 off. D/t neuropathy pt unsure what caused problem initially. documented in this encounter Care Teams (unrecognized sec tion and content) Team MemberRelationshipSpecialtyStart DateEnd Date Neri Santa DO [address] [place] [address] PCP - GeneralFamily Medicine03/28/17 Pili Gilliam DPM Consulting PhysicianPodiatr04/07/17 Reji Miramontes III, DO Consulting PhysicianVascular Surgery04/07/17Team MemberRelationshipSpecialtyStart Date[facility] Date Neri Santa, DO [address] [place] [address] PCP - GeneralFamily Medicine03/28/17 Pili Gilliam, MARK Consulting PhysicianPodiatry2 Reji Miramontes III, DO Consulting PhysicianVascular Surgery04/07/17Team MemberRelationshipSpecialtyStsherwood Date[facility] Date Neri Santa, DO [address] [place] [address] PCP - GeneralFamily Medicine03/28/17 Pili Gilliam, MARK Consulting PhysicianPodiatry2 Reji Miramontes III, DO Consulting PhysicianVascular Surgery04/07/17Te MemberRelationshipSpecialtyStsherwood Date[facility] Date Neri Santa, DO [address] [place] [address] PCP - GeneralFamily Medicine03/28/17 Pili Gilliam, DPM Consulting PhysicianPodiatry2 Reji Miramontes III, DO Consulting PhysicianVascular Surgery04/07/17Team MemberRelationshipSpecialtyStsherwood Date[facility] Neri Navarrete, DO [address] [place] [address] PCP - GeneralFamily Medicine03/28/17 Pili Gilliam, MARK Consulting PhysicianPodiatry2 Reji Miramontes III, DO Consulting PhysicianVascular Surgery04/07/17Te MemberRelationshipSpecialtyStart DateEnd Date Neri Santa, DO [address] [place] [address] PCP - GeneralFamily Medicine03/28/17 Pili Gilliam, MARK Consulting PhysicianPodiatry2 Reji Miramontes III, DO Consulting PhysicianVascular Surgery04/07/17Te MemberRelationshipSpecialtyStart DateEnd Date Neri Santa, DO [address] [place] [address] PCP - GeneralFamily Medicine03/06/17 Skylar Hernandez MD [address] [place] [address] Ophthalmology07/18/17 Kartik Mejia MD [address] [place] [address] Pain Qwefnsbk04/8/18 Tisha Arriaga MD [address] [place] [address] NeurologistNeurology07/18/17 Luis Miguel Kaur MD [address] [place] [address] EndocrinologistEndocrinology, Diabetes & Metabolism03/06/17 Chris Zavala, OD [address] [place] [address] Optometry03/15/20Team MemberRelationshipSpecialtyStNeri DO [address] [place] [address] [facility] - [facility]/06/17 Skylar Hernandez MD [address] [place] [address] Ophthalmology07/18/17 Kartik Mejia MD [address] [place] [address] Pain Exmuplhu86/8/18 Tisha Arriaga MD [address] [place] [address] NeurologistNeurology07/18/17 Luis Miguel Kaur MD [address] [place] [address] EndocrinologistEndocrinology, Diabetes & Metabolism03/06/17 Chris Zavala, OD [address] [place] [address] Optometry03/15/20Team MemberRelationshipSpecialtyStNeri DO [address] [place] [address] PCP - [facility] Medicine03/06/17 Skylar Hernandez MD [address] [place] [address] Ophthalmology07/18/17 Kartik Mejia MD [address] [place] [address] Pain Scghohoh32/8/18 Tisha Arriaga MD [address] [place] [address] NeurologistNeurology07/18/17 Luis Miguel Kaur MD [address] [place] [address] EndocrinologistEndocrinology, Diabetes & Metabolism03/06/17 Chris Zavala, OD [address] [place] [address] Optometry03/15/20Team MemberRelationshipSpecialtyStart DateEnd Date [place], Neri Parker DO [address] [place] [address] PCP - GeneralFamily Medicine03/06/17 Skylar Hernandez MD [address] [place] [address] Ophthalmology07/18/17 Kartik Mejia MD [address] [place] [address] Pain Okrueiec67/8/18 Tisha Arriaga MD [address] [place] [address] NeurologistNeurology07/18/17 Luis Miguel Kaur MD [address] [place] [address] EndocrinologistEndocrinology, Diabetes & Metabolism03/06/17 Chris Zavala, OD [address] [place] [address] Optometry03/15/20Team MemberRelationshipSpecialtyStart [facility], Neri Parker, DO [address] [place] [address] PCP - Generalmi Medicine03/06/17 Skylar Hernandez MD [address] [place] [address] Ophthalmology07/18/17 Kartik Mejia MD [address] [place] [address] Pain Lylrbnae59/8/18 Tisha Arriaga MD [address] [place] [address] NeurologistNeurology07/18/17 Luis Miguel Kaur MD [address] [place] [address] EndocrinologistEndocrinology, Diabetes & Metabolism03/06/17 Chris Zavala, OD [address] [place] [address] Optometry03/15/20Team MemberRelationshipSpecialtySt, Neri Parker, DO [address] [place] [address] PCP - [facility] Medicine03/06/17 Skylar Hernandez MD [address] [place] [address] Ophthalmology07/18/17 Kartik Mejia MD [address] [place] [address] Pain Hhcaavos06/8/18 Tisha Arriaga MD [address] [place] [address] NeurologistNeurology07/18/17 Luis Miguel Kaur MD [address] [place] [address] EndocrinologistEndocrinology, Diabetes & Metabolism03/06/17 Chris Zavala, OD [address] [place] [address] Optometry03/15/20Team MemberRelationshipSpecialtyStart [facility], Neri Parker, DO [address] [place] [facility] [place] [address] PCP - GeneralFamily Medicine03/06/17 Skylar Hernandez MD [address] [place] [address] Ophthalmology07/18/17 Kartik Mejia MD [address] [place] [address] Pain Lxtkbkpr63/8/18 Tisha Arriaga MD [address] [place] [address] NeurologistNeurology07/18/17 Luis Miguel Kaur MD [address] [place] [address] EndocrinologistEndocrinology, Diabetes & Metabolism03/06/17 Chris Zavala, OD [address] [place] [address] Optometry03/15/20Team MemberRelationshipSpecialtyStart [facility], Neri Parker, DO [address] [place] [address] PCP - GeneralFamily Medicine07/19/18Team MemberRelationshipSpecialtyStart DateEnd Date [place], Neri Parker, DO [address] [facility] [place] [address] PCP - GeneralFamily Medicine07/19/18Team MemberRelationshipSpecialtyStart DateEnd Date [place], Neri Parker, DO [address] [facility] [place] [address] PCP - Generalmily Medicine07/19/18Team MemberRelationshipSpecialtyStart DateEnd Date [place], Neri Parker, DO [address] [facility] [place] [address] PCP - Generalmily Medicine07/19/18 Team Status: Inactive Member Role Status Dates Rufus Shen II MD Attending Provider Active Team MemberRelationshipSpecialtyStart DateEnd Date Ganga Savage MD [address] [place] [address] PCP - GeneralInternal Medicine08/14/21Team MemberRelationshipSpecialtyStart Date End Date Ganga Savage MD [address] [place] [address] PCP - GeneralInternal Medicine08/14/21Team MemberRelationshipSpecialtyStart Date End Date Ganga Savage MD [address] [place] [address] PCP - GeneralInternal Medicine08/14/21Team MemberRelationshipSpecialtyStart Date End Date Neri Santa MD [address] [place] [address] PCP - GeneralFamily Medicine08/12/22Team MemberRelationshipSpecialtyStart DateEnd Date Neri Santa MD [address] [place] [facility] [address] PCP - GeneralFamily Medicine08/12/22Team MemberRelationshipSpecialtyStart DateEnd Date Neri Santa MD [address] [place] [facility] [place] [address] PCP - GeneralFamily Medicine08/12/22Team MemberRelationshipSpecialtyStart DateEnd Date Neri Santa MD [address] [place] [facility] [address] PCP - GeneralFamily Medicine08/12/22Team MemberRelationshipSpecialtyStart DateEnd Date Neri Santa MD [address] [place] [address] PCP - GeneralFamily Medicine08/12/22Team MemberRelationshipSpecialtyStart DateEnd Date Neri Santa MD PCP - GeneralFamily Medicine08/12/22Team MemberRelationshipSpecialtyStart DateEnd Date Neri Santa MD PCP - GeneralFamily Medicine08/12/22Team MemberRelationshipSpecialtyStart DateEnd Date Neri Santa MD PCP - GeneralFamily Medicine08/12/22Team MemberRelationshipSpecialtyStart DateEnd Date Neri Santa MD PCP - GeneralFamily Medicine08/12/22Te MemberRelationsHorsham Clinic Neri Santa MD [facility]08/12/22[facility] MemberRelationsHorsham Clinic Neri Santa MD [facility] - [facility]08/12/22Te MemberRelationsHorsham Clinic Neri Santa MD [facility]08/12/22 Scheduled Active and Recently Administ ered Medications (unrecognized section and content) Medication Order//01/2022 0.9 % sodium chloride bolus (COMPLETED) 1,000 mL, IntraVENous, at 1,000 mL/hr, Administer over 1 Hours, ONCE, On Nohemy 06/28/21 at 0415, For 1dose * 0441 (New Bag - Provider: Ashwini Morrison, VIRGIE) * 0546 (Stopped - Provider: Kati Villarreal, RN) 0.9 % sodium chloride bolus (COMPLETED) 1,000 mL (15.2 mL/kg), IntraVENous, at 1,000 mL/hr, Administer over 1 Hours, ONCE, On Nohemy 06/28/21 at 0800, For 1 dose * 0700 (New Bag - Provider: Kati Villarreal, RN) * 0810 (Stopped - Provider: Kati Villarreal, RN) aspirin chewable tablet 81 mg (COMPLETED) 81 mg, Oral, ONCE, 1 dose, On Nohemy 06/28/21 at 0730 * 0727 (Given - Provider: Kati Villarreal, RN) famotidine (PEPCID) 20 mg in sodium chloride (PF) 10 mL injection (COMPLETED) 20 mg, IntraVENous, ONCE, 1 dose, On Nohemy 06/28/21 at 0415, IV Push over minimum of 2 minutes - Dilute with 10 mL NS * 0410 (Given - Provider: Ashwini Morrison, VIRGIE) naloxone (NARCAN) injection 1 mg (COMPLETED) 1 mg, IntraVENous, ONCE, 1 dose, On Nohemy 06/28/21 at 0530 * 0523 (Given - Provider: Ashwini Morrison RN) ondansetron (ZOFRAN) injection 4 mg (COMPLETED) 4 mg, IntraVENous, ONCE, 1 dose, On Nohemy 06/28/21 at 0415 * 0409 (Given - Provider: Ashwini Morrison, VIRGIE) ondansetron (ZOFRAN) injection 4 mg (COMPLETED) 4 mg, IntraVENous, ONCE, 1 dose, On Nohemy 06/28/21 at 0800 * 0811 (Given - Provider: aKti Villarreal, RN) prochlorperazine (COMPAZINE) injection 10 mg (COMPLETED) 10 mg, IntraVENous, ONCE, 1 dose, On Nohemy 06/28/21 at 0945 * 0946 (Given - Provider: Kati Villarreal, RN) Medication Order///01/2022 iopamidol (ISOVUE-370) 76 % injection 75 mL (COMPLETED) 75 mL, IntraVENous, IMG ONCE PRN, 1 dose, Starting on Nohemy 06/28/21 at 0526, Until Discontinued, Other * 0543 (Given - Provider: Val Hunter) Medication Order/// acetaminophen (TYLENOL) tablet 650 mg 650 mg, Oral, EVERY 6 HOURS, First dose on Fri07/06/21 at 2245, Until Discontinued, Maximum dose ofacetaminophen is 4000 mg from all sources in 24 hours. * 0712 (Not Given - Provider: Jany Valderrama RN - Reason: Other) * 1302 (Given - Provider: Camilo Hernandez, VIRGIE) * 1758 (Given - Provider: Camilo Hernandez, RN) * 2250 (Given - Provider: Maggi Quiñones RN) * 0422 (Not Given - Provider: Maggi Quiñones RN - Reason: Patient/family refused) * 1107 (Given - Provider: Sebas Arnold, VIRGIE) * 1533 (Given - Provider: Sebas Arnold, VIRGIE) * 2250 (Not Given - Provider: Maggi Quiñones RN - Reason: Patient/family refused) * 0349 (Given - Provider: Maggi Quiñones RN) * 0949 (Given - Provider: Sebas Arnold RN) * 1621 (Given - Provider: Sebas Arnold RN) * 2245 (Due) aspirin chewable tablet 81 mg 81 mg, Oral, DAILY, First dose on Fri06/30/21 at 0900, Until Discontinued * 0900 (Automatically Held - Provider: REBEKA Rolon NP) * 0900 (Held - Provider: Sebas Arnold RN - Reason: Order parameters not met) * 0900 (Held - Provider: Sebas Arnold RN - Reason: Order parameters not met) carvedilol (COREG) tablet 25 mg 25 mg, Oral, 2 TIMES DAILY WITH MEALS, First dose on Fri06/29/21 at 0800, Until Discontinued, Administer with food to minimize the risk of orthostatic hypotension * 0813 (Given - Provider: Camilo Hernandez RN) * 1759 (Given - Provider: Camilo Hernandez RN) * 0809 (Given - Provider: Sebas Arnold RN) * 1534 (Given - Provider: Sebas Arnold RN) * 0914 (Given - Provider: Sebas Arnold RN) * 1700 (Due - Provider: Darleen Carmona MD) dextrose 50 % IV solution 25 g, IntraVENous, ONCE, 1 dose, On Fri07/10/21 at 0815 * 1112 (Not Given - Provider: Sebas Arnold RN - Reason: Contraindicated - Comment: bs 137) enoxaparin (LOVENOX) injection 40 mg 40 mg, SubCUTAneous, DAILY, First dose on Fri06/29/21 at 0900, Until Discontinued, Indication of Use: Prophylaxis-DVT/PE * 0900 (Automatically Held - Provider: REBEKA Rolon NP) * 0900 (Held - Provider: Sebas Arnold RN - Reason: Order parameters not met) * 1709 (Unheld by provider - Provider: Becki Chang MD) * 0915 (Given - Provider: Sebas Arnold RN) fluconazole (DIFLUCAN) tablet 200 mg 200 mg, Oral, DAILY, 14 doses, First dose on Fri07/02/21 at 1430, Last dose on Fri07/15/21 at 0900,Antimicrobial Indications: Intra-Abdominal Infection * 0813 (Given - Provider: Camilo Hernandez RN) * 0809 (Given - Provider: Sebas Arnold, VIRGIE) * 0916 (Given - Provider: Sebas Arnold, VIRGIE) gabapentin (NEURONTIN) capsule 200 mg 200 mg, Oral, 3 TIMES DAILY, First dose on Fri07/04/21 at 1500, Until Discontinued * 0813 (Given - Provider: Camilo Hernandez RN) * 1257 (Given - Provider: Camilo Hernandez RN) * 2013 (Given - Provider: Maggi Quiñones, RN) * 0807 (Given - Provider: Sebas Arnold, VIRGIE) * 1322 (Given - Provider: Sebas Arnold, VIRGIE) * 202 (Given - Provider: Maggi Quiñones RN) * 0914 (Given - Provider: Sebas Arnold, RN) * 1407 (Given - Provider: Sebas Arnold, RN) * 2100 (Due - Provider: Rufus Argueta MD) insulin glargine (LANTUS) injection vial 16 Units 16 Units, SubCUTAneous, DAILY, First dose (after last modification) on 06/30/21 at 0900, Until Discontinued * 0900 (Automatically Held) * 0833 (Unheld by provider - Provider: Rufus Argueta MD) * 0839 (Given - Provider: Sebas Arnold RN) * 0900 (Held - Provider: Sebas Arnold RN - Reason: Order parameters not met) * 0826 (Held by provider - Provider: Rufus Argueta MD - Reason: Other - Comment: Glycemia running low) * 0900 (Held - Provider: Sebas Arnold RN [...] 350-400 10 Units Above 400 12 Units * 0812 (Not Given - Provider: Camilo Hernandez RN - Reason: Order parameters not met) * 1352 (Given - Provider: Camilo Hernandez RN) * 1811 (Not Given - Provider: Camilo Hernandez RN - Reason: Order parameters not met) * 0819 (Given - Provider: Sebas Arnold RN) * 1122 (Not Given - Provider: Sebas Arnold RN - Reason: Order parameters not met) * 1646 (Not Given - Provider: Sebas Arnold RN - Reason: Order parameters not met) * 0917 (Not Given - Provider: Sebas Arnold RN - Reason: Order parameters not met) * 1113 (Not Given - Provider: Sebas Arnold RN - Reason: Order parameters not met) * 1700 (Due - Provider: Rufus Argueta MD) insulin [...] 350-400 5 Units Above 400 6 Units * 2006 (Not Given - Provider: Maggi Quiñones RN - Reason: Order parameters not met - Comment: poct 139) * 2157 (Not Given - Provider: Maggi Quiñones RN - Reason: Order parameters not met - Comment: poct 101) * 2099 (Due - Provider: Rufus Argueta MD) [...] dose on Fri06/28/21 at 2100, Until Discontinued * 2013 (Not Given - Provider: Maggi Quiñones RN - Reason: Patient/family refused) * 2026 (Not Given - Provider: Maggi Quiñones RN - Reason: Patient/family refused) * 2099 (Due - Provider: Rufus Argueta MD) levothyroxine (SYNTHROID) tablet 100 mcg 100 mcg, Oral, DAILY, First dose on Fri07/09/21 at 0900, Until Discontinued, Tube feeding (TF) interaction, obtain physician order to manage, recommend holding TF for 30 minutes before and after dose. * 1108 (Given - Provider: Sebas Arnold RN) * 0608 (Given - Provider: Maggi Quiñones RN) lidocaine 4 % external patch 1 patch 1 patch, TransDERmal, Administer over 12 Hours, DAILY, First dose (after last modification) on Fri07/03/21 at 0030, Apply patch to left posterior neck. Patch may remain in place for up to 12 hours inany 24 hour period. * 0812 (Patch Applied - Provider: Camilo Hernandez RN) * 2017 (Patch Removed - Provider: Maggi Quiñones RN) * 0809 (Patch Applied - Provider: Sebas Arnold, RN) * 2026 (Patch Removed - Provider: Maggi Quiñones RN) * 914 (Patch Applied - Provider: Sebas Arnold RN) * 2114 (Due: Patch Removed - Provider: Sebas Arnold, RN) lisinopril (PRINIVIL;ZESTRIL) tablet 10 mg 10 mg, Oral, DAILY, First dose (after last modification) on Fri07/03/21 at 0900, Until Discontinued * 09 (Automatically Held - Provider: Becki Chang MD) * 09 (Held - Provider: Sebas Arnold RN - Reason: Order parameters not met) * 09 (Held - Provider: Sebas Arnold RN - Reason: Order parameters not met) magnesium sulfate 1000 mg in dextrose 5% 100 mL IVPB (COMPLETED) 1,000 mg, IntraVENous, at 100 mL/hr, Administer over 1 Hours, ONCE, On Fri07/08/21 at 0900, For 1 dose, Recommended infusion rate not to exceed 1,000 mg (milligrams) per hour. * 1308 (New Bag - Provider: Camilo Hernandez RN) * 1344 (Stopped - Provider: Camilo Hernandez RN) magnesium sulfate 1000 mg in dextrose 5% 100 mL IVPB (COMPLETED) 1,000 mg, IntraVENous, at 100 mL/hr, Administer over 1 Hours, ONCE, On Fri07/10/21 at 1130, For 1 dose, Recommended infusion rate not to exceed 1,000 mg (milligrams) per hour. * 1244 (New Bag - Provider: Sebas Arnold RN) * 1357 (Stopped - Provider: Sebas Arnold, RN) nafcillin 2,000 mg in dextrose 5 % 100 mL IVPB (mini-bag) 2,000 mg, IntraVENous, EVERY 4 HOURS, First dose on Fri06/29/21 at 1600, Until Discontinued, Antimicrobial Indications: Bloodstream Infection * 0100 (Stopped - Provider: Jany Valderrama RN) * 0353 (New Bag - Provider: Jany Valderrama RN) * 0530 (Stopped - Provider: Jany Valderrama RN) * 0809 (New Bag - Provider: Camilo Hernandez RN) * 0950 (Stopped - Provider: Camilo Hernandez RN) * 1254 (New Bag - Provider: Camilo Hernandez RN) * 1256 (Stopped - Provider: Camilo Hernandez RN) * 1758 (New Bag - Provider: Camilo Hernandez, VIRGIE) * 1811 (Stopped - Provider: Camilo Hernandez, VIRGIE) * 2018 (New Bag - Provider: Maggi Quiñones RN) * 2118 (Stopped - Provider: Maggi Quiñones RN) * 0008 (New Bag - Provider: Maggi Quiñones RN) * 0111 (Stopped - Provider: Maggi Quiñones, VIRGIE) * 0420 (New Bag - Provider: Maggi Quiñones RN) * 0525 (Stopped - Provider: Maggi Quiñones RN) * 0826 (New Bag - Provider: Sebas Arnold, VIRGIE) * 0950 (Stopped - Provider: Sebas Arnold, VIRGIE) * 1115 (New Bag - Provider: Sebas Arnold RN) * 1220 (Stopped - Provider: Sebasmeet Arnold RN) * 1546 (New Bag - Provider: Sebas Arnold RN) * 1648 (Stopped - Provider: Sebas Arnold RN) * 2030 (New Bag - Provider: Maggi Quiñones RN) * 2158 (Stopped - Provider: Maggi Quiñones RN) * 0006 (New Bag - Provider: Maggi Quiñones RN) * 0106 (Stopped - Provider: Maggi Quiñones RN) * 0352 (New Bag - Provider: Maggi Quiñones RN) * 0456 (Stopped - Provider: Maggi Quiñones RN) * 0935 (New Bag - Provider: Sebas Arnold RN) * 0935 (Canceled Entry - Provider: Sebas Arnold RN) * 1030 (Stopped - Provider: Sebas Arnold RN) * 1130 (Canceled Entry - Provider: Sebas Arnold RN) * 1135 (New Bag - Provider: Sebas Arnold RN) * 1233 (Stopped - Provider: Sebas Arnold RN) * 1600 (Due - Provider: Rufus Argueta MD) * 2000 (Due - Provider: Rufus Argueta MD) potassium [...] further dilute if GI adverse effects occur. * 0922 (Given - Provider: Sebas Arnold RN) potassium chloride (KLOR-CON M) extended release tablet 40 mEq 40 mEq, Oral, ONCE, 1 dose, On Fri07/08/21 at 0900, Do not crush, chew, or suck on tablet. Tablet may also be broken in half and each half swallowed separately. * 1255 (Canceled Entry - Provider: Camilo Hernandez RN) potassium chloride 10 mEq/100 mL IVPB (Peripheral Line) () 10 mEq, IntraVENous, EVERY HOUR, 4 doses, First dose on 07/08/21 at 0800, Last dose on 07/08/21 at 1100, at 100 mL/hr * 0811 (New Bag - Provider: Camilo Hernandez RN) * 0953 (New Bag - Provider: Camilo Hernandez RN) * 0953 (New Bag - Provider: Camilo Hernandez RN) * 1255 (Stopped - Provider: Camilo Hernandez RN) * 1256 (Canceled Entry - Provider: Camilo Hernandez RN) sennosides-docusate sodium (SENOKOT-S) 8.6-50 MG tablet 1 tablet 1 tablet, Oral, 2 TIMES DAILY, First dose on Fri07/06/21 at 2245, Until Discontinued, Post-op * 0813 (Not Given - Provider: Camilo Hernandez RN - Reason: Other) * 2012 (Not Given - Provider: Maggi Quiñones RN - Reason: Patient/family refused) * 0808 (Given - Provider: Sebas Arnold RN) * 2026 (Not Given - Provider: Maggi Quiñones RN - Reason: Patient/family refused) * 0915 (Given - Provider: Sebas Arnold RN) * 2099 (Due) sodium chloride flush 0.9 % injection 5-40 mL 5-40 mL, IntraVENous, EVERY 12 HOURS SCHEDULED (2 times per day), First dose on Nohemy 06/28/21 at 2130, Until Discontinued, For Line Patency: Peripheral IV = 5 mL; Midline or Central Line = 10 mL/lumen.If following IV push medication, administer flush at same rate as the IV push. Flush volume is determined by type of infusion therapy being given. For non-viscous solutions use: Peripheral IV = 5 mL Midline or Central Line = 10 mL/lumen For viscous solutions (i.e. blood components, parenteral nutrition, contrast media, or after obtaining blood sample) use: Peripheral IV = 10 mL Midline or CentralLine = 20 mL/lumen * 0814 (Not Given - Provider: Camilo Hernandez RN - Reason: IV Fluid Infusing) * 2007 (Not Given - Provider: Maggi Quiñones RN - Reason: IV Fluid Infusing) * 08 (Given - Provider: Sebas Arnold RN) * 2027 (Not Given - Provider: Maggi Quiñones RN - Reason: IV Fluid Infusing) * 0917 (Given - Provider: Sebas Arnold, VIRGIE) * 2099 (Due - Provider: Rufus Argueta MD) sodium chloride flush 0.9 % injection 5-40 mL 5-40 mL, IntraVENous, EVERY 12 HOURS SCHEDULED (2 times per day), First dose on Fri07/06/21 at 2245, Until Discontinued, For Line Patency: Peripheral IV = 5 mL; Midline or Central Line = 10 mL/lumen.If following IV push medication, administer flush at same rate as the IV push. Flush volume is determined by type of infusion therapy being given. For non-viscous solutions use: Peripheral IV = 5 mL Midline or Central Line = 10 mL/lumen For viscous solutions (i.e. blood components, parenteral nutrition, contrast media, or after obtaining blood sample) use: Peripheral IV = 10 mL Midline or CentralLine = 20 mL/lumen * 0813 (Not Given - Provider: Camilo Hernandez RN - Reason: IV Fluid Infusing) * 2007 (Not Given - Provider: Maggi Quiñones RN - Reason: IV Fluid Infusing) * 0809 (Given - Provider: Sebas Arnold, VIRGIE) * 2027 (Not Given - Provider: Maggi Quiñones RN - Reason: IV Fluid Infusing) * 0916 (Given - Provider: Sebas Arnold RN) * 2100 (Due) valproic acid (DEPAKENE) 250 MG/5ML oral solution 250 mg 250 mg, Oral, 2 times daily, First dose on Fri07/03/21 at 1515, Until Discontinued * 0814 (Given - Provider: Camilo Hernandez RN) * 2115 (Given - Provider: Maggi Quiñones RN) * 0807 (Given - Provider: Sebas Arnold, RN) * 2027 (Given - Provider: Maggi Quiñones RN) * 0914 (Given - Provider: Sebas Arnold, VIRGIE) * 2100 (Due) Medication Order/// 0.9 % sodium chloride infusion IntraVENous, at 100 mL/hr, CONTINUOUS, Starting on Fri07/05/21 at 1945 * 2246 (New Bag - Provider: Maggi Quiñones RN) * 1838 (New Bag - Provider: Sebas Arnold, RN) * 1406 (New Bag - Provider: Sebas Arnold RN) Medication Order07/08//// 0.9 % sodium chloride infusion IntraVENous, at [...] using Glucostabilizer, dose as instructed per system. * 1308 (New Bag - Provider: Sebas Arnold RN) * 1317 (Stopped - Provider: Sebas Arnold RN) dextrose [...] using Glucostabilizer, dose as instructed per system. * 1308 (See Alternative - Provider: Sebas Arnold, RN) * 1317 (See Alternative - Provider: Sebas Arnold, VIRGIE) glucagon (rDNA) injection 1 mg 1 mg, IntraMUSCular, PRN, Starting on Fri06/28/21 at 1617, Until Discontinued, Low blood sugar, Blood glucose less than 70 mg/dL and patient NOT ALERT or NPO and does not have IV access., After administration, attempt intravenous access and start D5W at 100 mL/hr. Repeat blood glucose in 15 minutesx2 and notify provider. glucose chewable tablet 16 g 16 g (4 tablet), Oral, PRN, Starting on Fri06/28/21 at 1616, Until Discontinued, Low blood sugar, If blood glucose is LESS than 70 mg/dL and patient is alert and tolerating oral. Give 4 tablets (16g)Repeat blood glucose in 15 minutes. If blood [...] on Fri07/03/21 at 0329, Until Discontinued, Diarrhea, Aftereach loose stool. * 0808 (Given - Provider: Sebas Arnold, RN) * 0915 (Given - Provider: Sebas Arnold, VIRGIE) morphine (PF) injection 1 mg 1 mg, IntraVENous, EVERY 4 HOURS PRN, Starting on Nohemy 07/05/21 at 1130, Until Discontinued, Pain Severe (7-10), If oral and IV narcotics ordered, use oral first and only use IV if oral is ineffective or cannot take oral. Do Not give oral and IV within 1 hour of each other unless specifically ordered. * 0235 (Given - Provider: Jany Valderrama RN) ondansetron (ZOFRAN) injection 4 mg(Linked Group 2) 4 mg, IntraVENous, EVERY 6 HOURS PRN, Starting on Nohemy 06/28/21 at 2107, Until Discontinued, Nausea, Vomiting, Administer if oral route cannot be used. ondansetron (ZOFRAN-ODT) disintegrating tablet 4 mg(Linked Group 2) 4 mg, Oral, EVERY 8 HOURS PRN, Starting on Fri06/28/21 at 2107, Until Discontinued, Nausea, Vomiting oxyCODONE (ROXICODONE) immediate release tablet 10 mg(Linked Group 3) 10 mg, Oral, EVERY 4 HOURS PRN, Starting on Fri07/06/21 at 2217, Until Discontinued, Pain Severe (7-10) * 1348 (Given - Provider: Camilo Hernandez RN) * 0522 (Given - Provider: Maggi Quiñones, VIRGIE) * 1533 (See Alternative - Provider: Sebas Arnold, VIRGIE) oxyCODONE (ROXICODONE) immediate release tablet 5 mg(Linked Group 3) 5 mg, Oral, EVERY 4 HOURS PRN, Starting on Fri07/06/21 at 2217, Until Discontinued, Pain Moderate (4-6) * 1348 (See Alternative - Provider: Camilo Hernandez RN) * 0522 (See Alternative - Provider: Maggi Quiñones, VIRGIE) * 1533 (Given - Provider: Sebas Arnold, VIRGIE) potassium chloride 10 mEq/100 mL IVPB (Peripheral [...] in patients with CrCl less than 30 mL /min. * 1255 (New Bag - Provider: Camilo Hernandez RN) sodium chloride flush 0.9 % injection 10 mL 10 mL, IntraVENous, PRN, Starting on Fri07/03/21 at 1250, Until Discontinued, Line Care sodium [...] For viscous solutions (i.e. blood components, parenteral nutrition,contrast media, or after obtaining blood sample) use: Peripheral IV = 10 mL Midline or Central Line= 20 mL/lumen sodium chloride flush 0.9 % [...] For viscous solutions (i.e. blood components, parenteral nutrition,contrast media, or after obtaining blood sample) use: Peripheral IV = 10 mL Midline or Central Line= 20 mL/lumen sodium chloride flush 0.9 % [...] For viscous solutions (i.e. blood components, parenteral nutrition,contrast media, or after obtaining blood sample) use: Peripheral IV = 10 mL Midline or Central Line= 20 mL/lumen tiZANidine (ZANAFLEX) tablet 2 mg 2 mg, Oral, EVERY 8 HOURS PRN, Starting on 07/02/21 at 1157, Until Discontinued, Muscle spasms * 0808 (Given - Provider: Sebas Arnold RN) * 0915 (Given - Provider: Sebas Arnold RN) Order Group 1: dextrose bolus 10% 125 [...] x 2. If using Glucostabilizer, dose as instructedper system.
Or dextrose bolus 10% 250 mLJump to med 250 mL, IntraVENous, at 937.5 mL/hr, Administer over 16 Minutes, PRN, Other, Blood glucose LESS than 40 mg/dL and patient NOT ALERT or NPO, Starting on Nohemy 06/28/21 at 1616
If patient does not respond within 5 minutes, repeat dose x 1. Start D5W at 100 mL/hour until ordering provider can bereached. Repeat blood glucose in 15 minutes. If blood glucose is LESS than 40 mg/dL, repeat treatment and recheck blood glucose in 15 minutes x 2. If using Glucostabilizer, dose asinstructed per system.
Group 2: ondansetron (ZOFRAN-ODT) disintegrating [...] at 2217, Until Discontinued, Pain Severe (7-10) Medication Order// azithromycin (ZITHROMAX) 500 mg in D5W 250ml Vial Mate (COMPLETED) 500 mg, IntraVENous, ONCE, 1 dose, On Fri07/13/21 at 2245, Antimicrobial Indications: Pneumonia (HAP) * 2258 (New Bag - Provider: Marielena Marie RN) * 0007 (Stopped - Provider: Bassam Camacho RN) HYDROcodone-acetaminophen (NORCO) 5-325 MG per tablet 1 tablet (COMPLETED) 1 tablet, Oral, ONCE, 1 dose, On 07/14/21 at 0215, Maximum dose of acetaminophen is 4000 mg fromall sources in 24 hours. * 0250 (Given - Provider: Hina Ross RN) HYDROcodone-acetaminophen (NORCO) 5-325 MG per tablet 1 tablet (COMPLETED) 1 tablet, Oral, ONCE, 1 dose, On 07/14/21 at 0830, Maximum dose of acetaminophen is 4000 mg fromall sources in 24 hours. * 0832 (Given - Provider: Farhana Minaya RN - Comment: neck and head) magnesium sulfate 1000 mg in dextrose 5% 100 mL IVPB (COMPLETED) 1,000 mg, IntraVENous, at 100 mL/hr, Administer over 1 Hours, ONCE, On Fri07/13/21 at 2315, For 1 dose * 2346 (New Bag - Provider: Hina Ross RN) * 0046 (Stopped - Provider: Kati Villarreal RN) piperacillin-tazobactam (ZOSYN) 3,375 mg in dextrose 5 % 50 mL IVPB (mini-bag) (COMPLETED) 3,375 mg, IntraVENous, ONCE, 1 dose, On Fri07/13/21 at 2315, Antimicrobial Indications: Pneumonia (HAP) * 0003 (New Bag - Provider: Bassam Camacho RN) * 0035 (Stopped - Provider: Bassam Camacho RN) piperacillin-tazobactam (ZOSYN) 3,375 mg in dextrose 5 % 50 mL IVPB (mini-bag) (COMPLETED) 3,375 mg, IntraVENous, ONCE, 1 dose, On 07/14/21 at 0515, Antimicrobial Indications: Pneumonia (HAP), Other, Other Abx Indication: C1 abscess * 0554 (New Bag - Provider: Kati Villarreal RN) * 0621 (Stopped - Provider: Kati Villarreal RN) piperacillin-tazobactam (ZOSYN) 3,375 mg in dextrose 5 % 50 mL IVPB (mini-bag) (COMPLETED) 3,375 mg, IntraVENous, ONCE, 1 dose, On 07/14/21 at 1130, Antimicrobial Indications: Pneumonia (HAP) * 1216 (New Bag - Provider: Rakesh Rodriguez RN) * 1245 (Stopped - Provider: Kati Villarreal RN) potassium bicarb-citric acid (EFFER-K) effervescent tablet 40 mEq (COMPLETED) 40 mEq, Oral, ONCE, 1 dose, On 07/13/21 at 2130, Do not chew or crush. Dissolve flavored tabletscompletely in 3 to 4 ounces of cold water; unflavored tablets may be dissolved in 3 to 4 ounces of cold juice. Patient to sip slowly over a 5 to 10 minute period. May further dilute if GI adverse effects occur. * 2128 (Given - Provider: Rakesh Rodriguez RN) potassium bicarb-citric acid (EFFER-K) effervescent tablet 40 mEq (COMPLETED) 40 mEq, Oral, ONCE, 1 dose, On 07/14/21 at 0615, Do not chew or crush. Dissolve flavored tabletscompletely in 3 to 4 ounces of cold water; unflavored tablets may be dissolved in 3 to 4 ounces of cold juice. Patient to sip slowly over a 5 to 10 minute period. May further dilute if GI adverse effects occur. * 0621 (Given - Provider: Kati Villarreal RN) potassium chloride 10 mEq/100 mL IVPB (Peripheral Line) (COMPLETED) 40 mEq, IntraVENous, ONCE, 1 dose, On 07/14/21 at 0715, Administer over 4 Hours, at 100 mL/hr * 0725 (New Bag - Provider: Kati Villarreal RN) * 1128 (Stopped - Provider: Kati Villarreal RN) Medication Order08/08//// aspirin tablet 325 mg 325 mg, Oral, DAILY, First dose on 07/16/21 at 1300, Until Discontinued * 0900 (Automatically Held) * 0900 (Automatically Held) * 0900 (Automatically Held) calcium carbonate-vitamin D3 (CALTRATE) 600-400 MG-UNIT per tab 2 tablet 2 tablet, Oral, DAILY, First dose on Fri07/15/21 at 1245, Until Discontinued * 1200 (Automatically Held) * 1200 (Automatically Held) * 1200 (Automatically Held) carvedilol (COREG) tablet 25 mg 25 mg, Oral, 2 TIMES DAILY WITH MEALS, First dose (after last modification) on 07/28/21 at 2100,Until Discontinued, Administer with food to minimize the risk of orthostatic hypotension * 0850 (Given - Provider: Alejandra Goldberg RN) * 1710 (Not Given - Provider: Alejandra Goldberg RN - Reason: Contraindicated) * 0800 (Given - Provider: Yolanda De La Fuente RN) * 1655 (Given - Provider: Yolanda De La Fuente RN) * 0821 (Given - Provider: Anna Veliz, VIRGIE) * 172 (Given - Provider: Anna Veliz, VIRGIE) chlordiazePOXIDE (LIBRIUM) capsule 10 mg (CANCELED) 10 mg, Oral, 3 TIMES DAILY, First dose on Fri08/05/21 at 1400, Until Discontinued * 0851 (Given - Provider: Alejandra Goldberg RN) chlordiazePOXIDE (LIBRIUM) capsule 5 mg 5 mg, Oral, 2 times daily, First dose (after last modification) on Fri08/08/21 at 1200, Until Discontinued * 1241 (Given - Provider: Alejandra Goldberg RN) * 2051 (Given - Provider: Maggi Multani, VIRGIE) * 0807 (Given - Provider: Yolanda De La Fuente RN) * 2033 (Given - Provider: Lubna Peralta RN) * 08 (Given - Provider: Anna Veliz, VIRGIE) * 2009 (Given - Provider: Lubna Peralta, VIRGIE) enoxaparin (LOVENOX) injection 40 mg 40 mg, SubCUTAneous, DAILY, First dose (after last modification) on 07/14/21 at 1745, Until Discontinued, Indication of Use: Prophylaxis-DVT/PE * 0851 (Given - Provider: Alejandra Goldberg RN) * 0800 (Given - Provider: Yolanda De La Fuente RN) * 0821 (Given - Provider: Anna Veliz, VIRGIE) famotidine (PEPCID) tablet 20 mg 20 mg, Per NG tube, 2 TIMES DAILY, First dose on Nohemy 08/02/21 at 2100, Until Discontinued, IV to PO change per P&T policy * 0850 (Given - Provider: Alejandra Goldberg RN) * 2051 (Given - Provider: Maggi Multani, VIRGIE) * 0801 (Given - Provider: Yolanda De La Fuente RN) * 2048 (Given - Provider: Lubna Peralta RN) * 0821 (Given - Provider: Anna Veliz RN) * 2021 (Given - Provider: Lubna Peralta, VIRGIE) gabapentin (NEURONTIN) capsule 200 mg 200 mg, Oral, 3 TIMES DAILY, First dose on Fri07/19/21 at 0900, Until Discontinued * 0850 (Given - Provider: Alejandra Goldberg RN) * 1558 (Given - Provider: Alejandra Goldberg RN) * 2051 (Given - Provider: Maggi Multani, RN) * 1030 (Given - Provider: Yolanda De La Fuente RN) * 161 (Given - Provider: Yolanda De La Fuente RN) * 2204 (Given - Provider: Lubna Peralta RN) * 101 (Given - Provider: Anna Veliz, VIRGIE) * 151 (Given - Provider: Anna Veliz RN) * 2199 (Due - Provider: Linn Duvall [facility]) insulin glargine (LANTUS) injection vial 10 Units (COMPLETED) 10 Units, SubCUTAneous, ONCE, 1 dose, On Fri08/08/21 at 0800 * 09 (Given - Provider: Alejandra Goldberg RN) insulin glargine (LANTUS) injection vial 10 Units 10 Units, SubCUTAneous, NIGHTLY, First dose (after last modification) on Fri08/10/21 at 2100, UntilDiscontinued * 2024 (Given - Provider: Lubna Peralta RN - Comment: blood sugar 213mg/dl) insulin glargine (LANTUS) injection vial 5 Units (CANCELED) 5 Units, SubCUTAneous, NIGHTLY, First dose on Fri08/08/21 at 2100, Until Discontinued * 2102 (Given - Provider: Maggi Multani RN) * 2041 (Given - Provider: Lubna Peralta, VIRGIE) insulin lispro (HUMALOG) injection vial 0-12 Units 0-12 Units, SubCUTAneous, EVERY 6 HOURS, First dose on Fri08/04/21 at 0915, Until Discontinued, Medium Dose Corrective Algorithm Glucose: Dose: If <139 No Insulin 140-199 2 Units 200-249 4 Units 250-299 6 Units 300-349 8 Units 350- 400 10 Units Above 400 12 Units * 0254 (Given - Provider: Nany Newman RN - Comment: BS 214) * 0911 (Given - Provider: Alejandra Goldberg RN) * 1601 (Given - Provider: Alejandra Goldberg RN) * 2104 (Given - Provider: Maggi Multani, VIRGIE) * 0250 (Not Given - Provider: Maggi Multani RN - Reason: Order parameters not met) * 0812 (Given - Provider: Yolanda De La Fuente RN - Comment: bs 202) * 1653 (Given - Provider: Yolanda De La Fuente, VIRGIE) * 2043 (Given - Provider: Lubna Peralta, VIRGIE) * 0318 (Not Given - Provider: Lubna Peralta RN - Reason: Order parameters not met - Comment: blood sugar 133mg/dl) * 1012 (Given - Provider: Anna Veliz, VIRGIE) * 151 (Given - Provider: Anna Veliz, VIRGIE) * 2027 (Given - Provider: Lubna Peralta RN) lactobacillus (CULTURELLE) capsule 1 capsule 1 capsule, Oral, DAILY WITH BREAKFAST, First dose on Nohemy 07/19/21 at 0815, Until Discontinued, Do notadd to warm or hot foods or beverages. Caps may be opened & mixed in a cool beverage or sprinkled onto baby food or applesauce. Mix entire packet content into cool food or drink until dissolved. * 0851 (Given - Provider: Alejandra Goldberg RN) * 0800 (Given - Provider: Yolanda De La Fuente RN) * 0821 (Given - Provider: Anna Veliz, VIRGIE) latanoprost (XALATAN) 0.005 % ophthalmic solution 1 drop 1 drop, Both Eyes, NIGHTLY, First dose on Nohemy 07/19/21 at 2100, Until Discontinued * 2052 (Given - Provider: Maggi Multani RN) * 2034 (Given - Provider: Lubna Peralta RN) * 2024 (Given - Provider: Lubna Peralta, VIRGIE) levothyroxine (SYNTHROID) tablet 100 mcg 100 mcg, Oral, DAILY, First dose on 07/14/21 at 1730, Until Discontinued, Tube feeding (TF) interaction, obtain physician order to manage, recommend holding TF for 30 minutes before and after dose. * 0901 (Given - Provider: Alejandra Goldberg RN) * 0612 (Given - Provider: Maggi Multani RN) * 0559 (Given - Provider: Lubna Peralta RN) metoclopramide (REGLAN) injection 5 mg (CANCELED) 5 mg, IntraVENous, EVERY 6 HOURS, First dose on Fri08/04/21 at 1600, Until Discontinued * 0444 (Given - Provider: Nany Newman RN) * 1045 (Given - Provider: Alejandra Goldberg RN) * 1608 (Given - Provider: Alejandra Goldberg RN) * 2207 (Given - Provider: Maggi Multani RN) * 0322 (Given - Provider: Maggi Multani RN) * 1013 (Not Given - Provider: Yolanda De La Fuente RN - Reason: Contraindicated - Comment: fms liquid stools) nafcillin 2,000 mg in dextrose 5 % 100 mL IVPB (mini-bag) 2,000 mg, IntraVENous, EVERY 6 HOURS, 112 doses, First dose on Fri07/18/21 at 1400, Last dose on Fri08/15/21 at 1030, Antimicrobial Indications: Bloodstream Infection, Bone and Joint Infection * 0448 (New Bag - Provider: Nany Newman RN) * 0451 (Rate/Dose Verify - Provider: Nany Newman RN) * 0548 (Stopped - Provider: Nany Newman RN) * 0558 (Stopped - Provider: Nany Newman RN) * 1046 (New Bag - Provider: Alejandra Goldberg RN) * 1146 (Stopped - Provider: Alejandra Goldberg RN) * 1206 (Stopped - Provider: Alejandra Goldberg RN) * 1608 (New Bag - Provider: Alejandra Goldberg RN) * 1611 (Rate/Dose Verify - Provider: Alaina Funes, VIRGIE) * 1708 (Stopped - Provider: Alaina Funes, VIRGIE) * 1711 (Stopped - Provider: Alejandra Goldberg, VIRGIE) * 2207 (New Bag - Provider: Maggi Multani RN) * 2307 (Stopped - Provider: Maggi Multani RN) * 0343 (New Bag - Provider: Maggi Multani RN) * 0346 (Rate/Dose Verify - Provider: Yolanda De La Fuente, VIRGIE) * 0443 (Stopped - Provider: Maggi Multani RN) * 1026 (New Bag - Provider: Yolanda De La Fuente RN) * 1031 (Rate/Dose Verify - Provider: Yolanda De La Fuente RN) * 1126 (Stopped - Provider: Yolanda De La Fuente RN) * 1614 (New Bag - Provider: Yolanda De La Fuente RN) * 1616 (Rate/Dose Verify - Provider: Yolanda De La Fuente RN) * 1638 (Rate/Dose Verify - Provider: Yolanda De La Fuente RN) * 1714 (Stopped - Provider: Yolanda De La Fuente RN) * 2207 (New Bag - Provider: Lubna Peralta RN) * 2307 (Stopped - Provider: Lubna Peralta RN) * 0036 (Stopped - Provider: Lubna Peralta RN) * 0413 (New Bag - Provider: Lubna Peralta RN) * 0415 (Rate/Dose Verify - Provider: Lubna Peralta RN) * 0513 (Stopped - Provider: Lubna Peralta RN) * 0542 (Stopped - Provider: Lubna Peralta RN) * 1015 (New Bag - Provider: Anna Veliz RN) * 1015 (Rate/Dose Verify - Provider: Anna Veliz RN) * 1115 (Stopped - Provider: Anna Veliz RN) * 1649 (New Bag - Provider: Anna Veliz RN) * 1650 (Rate/Dose Verify - Provider: Anna Veliz RN) * 1749 (Stopped - Provider: Anna Veliz RN) * 2230 (Due - Provider: Loulou Vickers) oxyCODONE (ROXICODONE) immediate release tablet 10 mg 10 mg, Oral, EVERY 6 HOURS, First dose on Fri08/01/21 at 1430, Until Discontinued * 0254 (Given - Provider: Nany Newman RN) * 0850 (Given - Provider: Alejandra Goldberg, RN) * 1400 (Not Given - Provider: Alejandra Goldberg RN - Reason: Other - Comment: Not given due to recent prn given) * 205 (Given - Provider: Maggi Multani, VIRGIE) * 0251 (Given - Provider: Maggi Multani, VIRGIE - Comment: hypotension) * 0807 (Given - Provider: Yolanda De La Fuente RN) * 1419 (Given - Provider: Yolanda De La Fuente, RN) * 2033 (Given - Provider: Lubna Peralta, VIRGIE) * 0212 (Given - Provider: Lubna Peralta RN) * 0820 (Given - Provider: Anna Veliz, RN) * 1424 (Given - Provider: Anna Veliz, RN) * 2009 (Given - Provider: Lubna Peralta, VIRGIE) potassium bicarb-citric acid (EFFER-K) effervescent tablet 40 mEq 40 mEq, Oral, 4 TIMES DAILY, 8 doses, First dose on Fri07/17/21 at 1700, Last dose on Fri07/19/21 [id number], Do not chew or crush. Dissolve flavored [...] modification) on Fri08/08/21 at 2200, Until Discontinued * 2051 (Given - Provider: Maggi Multani RN) * 2204 (Given - Provider: Lubna Peralta RN) * 2199 (Due - Provider: Linn Duvall [facility]) valproic acid (DEPAKENE) 250 MG/5ML oral solution 250 mg 250 mg, Per NG tube, 2 TIMES DAILY, First dose on Fri08/02/21 at 2100, Until Discontinued * 0859 (Given - Provider: Alejandra Goldberg RN) * 2051 (Given - Provider: Maggi Multani RN) * 1012 (Given - Provider: Yolanda De La Fuente, VIRGIE) * 2033 (Given - Provider: Lubna Peralta, VIRGIE) * 0821 (Given - Provider: Anna Veliz, VIRGIE) * 2021 (Given - Provider: Lubna Peralta RN) Medication Order08/08//// 0.9 % sodium chloride infusion IntraVENous, at 10 mL/hr, CONTINUOUS, Starting on Fri07/29/21 at 0830 * 0621 (New Bag - Provider: Nany Newman RN) * 1020 (Rate/Dose Verify - Provider: Alejandra Goldberg RN) * 1247 (Rate/Dose Verify - Provider: Alejandra Goldberg RN) * 1842 (Rate/Dose Verify - Provider: Alaina Funes RN) * 0443 (Rate/Dose Verify - Provider: Yolanda De La Fuente RN) * 0752 (Rate/Dose Verify - Provider: Yolanda De La Fuente RN) * 1025 (New Bag - Provider: Yolanda De La Fuente RN) * 1025 (Rate/Dose Verify - Provider: Yolanda De La Fuente RN) * 1126 (Rate/Dose Verify - Provider: Yolanda De La Fuente RN) * 1258 (Rate/Dose Verify - Provider: Yolanda De La Fuente RN) * 1614 (Stopped - Provider: Yolanda De La Fuente RN) * 1852 (Restarted - Provider: Yolanda De La Fuente RN) * 2000 (Rate/Dose Verify - Provider: Lubna Peralta RN) * 0407 (Rate/Dose Verify - Provider: Lubna Peralta RN) * 0623 (Rate/Dose Verify - Provider: Lubna Peralta RN) * 0747 (Rate/Dose Verify - Provider: Lubna Peralta RN) * 0822 (New Bag - Provider: Anna Veliz RN) * 0822 (Rate/Dose Verify - Provider: Anna Veliz RN) * 1258 (Rate/Dose Verify - Provider: Anna Veliz RN) * 1544 (Rate/Dose Verify - Provider: Anna Veliz RN) * 1910 (Rate/Dose Verify - Provider: Anna Veliz RN) dexmedetomidine (PRECEDEX) 400 mcg in sodium chloride 0.9 % 100 mL infusion 0.1-1.5 mcg/kg/hr 60.6 kg (1.515-22.725 mL/hr, rounded to 1.5-22.7 mL/hr), IntraVENous, CONTINUOUS,Starting on Fri08/01/21 at 1430, Until Discontinued, Titrate Infusion? Yes, Initial Infusion Dose: 0.2 mcg/kg/hr, Goal of Therapy: RASS of -1 to 0, Contact Provider if: New onset HR less than 50 bpm,New onset SBP less than 90 mmHg, Patient is receiving maximum dose and is not achieving the goal oftherapy, If Titrate Infusion? is No : Disregard instructions below. If Titrate infusion? is Yes :Titrate in increments of 0.2 mcg/kg/hr no more frequently than every 30 minutes to goal of therapy.If after titration rate change patient exhibits adverse hemodynamic response, next titration rate change may be adjusted by one-half of the previous rate change. If patient fails sedation interruption, resume dexmedetomidine infusion at 50% of previous rate. * 0108 (Rate/Dose Change - Provider: Nany Newman RN) * 0302 (Rate/Dose Verify - Provider: Nany Newman RN) * 0307 (New Bag - Provider: Nany Newman RN) * 0307 (Rate/Dose Verify - Provider: Nany Newman RN) * 0621 (Rate/Dose Verify - Provider: Nany Newman RN) * 0735 (Handoff - Provider: Nany Newman RN) * 1020 (Rate/Dose Verify - Provider: Alejandra Goldberg RN) * 1026 (Rate/Dose Change - Provider: Alejandra Goldberg RN) * 1031 (Rate/Dose Change - Provider: Alejandra Goldberg RN) * 1247 (Rate/Dose Verify - Provider: Alejandra Goldberg RN) * 1842 (Rate/Dose Verify - Provider: Alaina Funes RN) * 1850 (Rate/Dose Verify - Provider: Yolanda De La Fuente RN) * 185 (Rate/Dose Verify - Provider: Yolanda De La Fuente RN) * 1925 (Handoff - Provider: Alejandra Goldberg RN) * 2030 (Rate/Dose Verify - Provider: Yolanda De La Fuente RN) * 2031 (Rate/Dose Verify - Provider: Yolanda De La Fuente RN) * 2111 (Rate/Dose Verify - Provider: Yolanda De La Fuente RN) * 211 (Rate/Dose Verify - Provider: Yolanda De La Fuente RN) * 211 (New Bag - Provider: Maggi Multani RN) * 0752 (Rate/Dose Verify - Provider: Yolanda De La Fuente RN) * 1258 (Rate/Dose Verify - Provider: Yolanda De La Fuente RN) * 1346 (Rate/Dose Verify - Provider: Yolanda De La Fuente RN) * 1347 (Rate/Dose Verify - Provider: Yolanda De La Fuente RN) * 1413 (Rate/Dose Verify - Provider: Yolanda De La Fuente RN) * 1513 (Rate/Dose Verify - Provider: Yolanda De La Fuente RN) * 1514 (New Bag - Provider: Destiny Houston RN) * 1638 (Rate/Dose Verify - Provider: Yolanda De La Fuente RN) * 1852 (Rate/Dose Verify - Provider: Yolanda De La Fuente RN) * 191 (Handoff - Provider: Yolanda De La Fuente RN) * 1999 (Rate/Dose Verify - Provider: Lubna Peralta RN) * 0335 (New Bag - Provider: Lubna Peralta RN) * 0407 (Rate/Dose Verify - Provider: Lubna Peralta RN) * 0623 (Rate/Dose Verify - Provider: Lubna Peralta RN) * 0727 (Handoff - Provider: Lubna Peralta RN) * 0747 (Rate/Dose Verify - Provider: Lubna Peralta RN) * 1258 (Rate/Dose Verify - Provider: Anna Veliz RN) * 1544 (Rate/Dose Verify - Provider: Anna Veliz RN) * 190 (Handoff - Provider: Anna Veliz RN) * 191 (Rate/Dose Verify - Provider: Anna Veliz RN) * 2032 (New Bag - Provider: Lubna Peralta RN) Medication Order08/08//// acetaminophen (TYLENOL) suppository 650 mg(Linked Group 1) [...] hour of each other unless specifically ordered. * 1306 (Given - Provider: Alejandra Goldberg RN - Comment: see cpot) * 1055 (Given - Provider: Yolanda De La Fuente RN) glucagon (rDNA) injection 1 mg 1 mg, IntraMUSCular, PRN, Starting on 07/14/21 at 1639, Until Discontinued, Low blood sugar, Blood glucose less than 70 mg/dL and patient NOT ALERT or NPO and does not have IV access., After administration, attempt intravenous access and start D5W at 100 mL/hr. Repeat blood glucose in 15 minutesx2 and notify provider. Loperamide HCl (IMODIUM) 1 MG/7.5ML solution 2 mg 2 mg, Oral, 4 TIMES DAILY PRN, Starting on 08/04/21 at 0758, Until Discontinued, Diarrhea, Aftereach loose stool. LORazepam (ATIVAN) injection 2 mg 2 mg, IntraVENous, EVERY 4 HOURS PRN, Starting on 07/28/21 at 0201, Until Discontinued, Anxiety * 0444 (Given - Provider: Nany Newman, RN) * 1554 (Given - Provider: Alejandra Goldberg, VIRGIE) * 2236 (Given - Provider: Maggi Multani, VIRGIE) * 1119 (Given - Provider: Yolanda De La Fuente, VIRGIE) * 1715 (Given - Provider: Yolanda De La Fuente, VIRGIE) * 0050 (Given - Provider: Lubna Peralta, VIRGIE) [...] further dilute if GI adverse effects occur. * 0646 (See Alternative - Provider: Lubna Peralta RN) potassium chloride [...] patients with CrCl less than 30 mL/min. * 0646 (Given - Provider: Lubna Peralta RN [...] patients with CrCl less than 30 mL/min. * 0646 (See Alternative - Provider: Lubna Peralta RN) sodium chloride [...] For viscous solutions (i.e. blood components, parenteral nutrition,contrast media, or after obtaining blood sample) use: Peripheral IV = 10 mL Midline or Central Line= 20 mL/lumen Order Group 1: acetaminophen (TYLENOL) tablet 650 [...] 07/14/21 at 1639
Start D5W at 100 mL/houruntil ordering provider can be reached. Repeat blood [...] and recheck blood glucose in 15 minutes x2. If using Glucostabilizer, dose as instructed per [...] patient unable to tolerate tablet. K Lab &am p;nbsp; Replacement Action 3.1 to 3.5 40 mEq ORAL x 1 Under 3.1 Refer to IV replacement protoc ol Recheck K level in AM. Protocol not for use in patients with CrCl less than 30 mL/min.
Or potassium bicarb-citric acid (EFFER-K) effervescent tablet 40 mEqJump to med 40 mEq, Oral, PRN, Starting on Fri07/25/21 at 0628, Until Discontinued, Per Potassium Replacement Protocol
Administer as alternative if patient unable to tolerate oral tablet. K Lab &a mp;nbsp; Replacement Action 3.1 to 3.5 &amp ;nbsp; 40 mEq ORAL x 1 Under 3.1 &nbsp ; Refer to IV replacement protocol Recheck K level in AM.& nbsp;Protocol not for use in patients with CrCl [...] Under 2.7 CALL PROVIDER and administer 10 mEqIVPB x 6 doses (60 mEq Total) Infuse at 10 mEq/hr. Repeat Potassium lab1 hour after final administration. Protocol not for use in patients with CrCl less than 30mL/min.
Ordered Prescriptions (unrec ognized section and content) PrescriptionSigDispensedRefillsStart DateEnd lactobacillus (CULTURELLE) capsule Take 1 capsule by mouth daily (with breakfast) 30 capsule valproic acid (DEPAKENE) 250 MG/5ML SOLN oral solution Take 5 mLs by mouth in the morning and at bedtime 300 mL / gabapentin (NEURONTIN) 100 MG capsule Take 2 capsules by mouth 3 times daily for 15 days. 90 capsule fluconazole (DIFLUCAN) 200 MG tablet Take 1 tablet by mouth daily for 6 doses 6 tablet levothyroxine (SYNTHROID) 100 MCG tablet Take 1 tablet by mouth Daily 30 tablet nafcillin infusion Infuse 2,000 mg intravenously every 4 hours Till 08/20/21 Then stop iv AB and pull the line Cbc diff and creat q MWF while on this AB Compound per protocol 504 g /05/2021 doxycycline hyclate (VIBRA-TABS) 100 MG tablet Take 1 tablet by mouth 2 times daily Start 08/21/21 after all the iv AB is over - keep correction suppression 60 tablet rescriptionSigDispensedRefillsStart DateEnd oxyCODONE (ROXICODONE) 5 MG immediate release tablet Indications: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Take 2 tablets by mouth every 4 hours for 1 day. 10 tablet / nafcillin 2 g injection Infuse 2,000 mg intravenously every 6 hours for 13 days 52 each /08/2021 QUEtiapine (SEROQUEL) 25 MG tablet Take 1 tablet by mouth nightly 60 tablet LORazepam (ATIVAN) 2 MG/ML injection Indications:EncephalopathyInfuse 1 mL intravenously every 4 hours as needed (anxiety, agitation) for up to 30 days. 10 mL famotidine (PEPCID) 20 MG tablet 1 tablet by Per NG tube route 2 times daily 60 tablet dexmedetomidine HCl in NaCl (PRECEDEX) 400 MCG/100ML SOLN infusion Infuse 6.06-90.9 mcg/hr intravenously continuous 100 mL chlordiazePOXIDE (LIBRIUM) 5 MG capsule Indications:EncephalopathyTake 1 capsule by mouth in the morning and at bedtime for 30 days. 60 capsule bisacodyl (DULCOLAX) [address] 1 suppository rectally daily as needed for Constipation 30 suppository potassium bicarb-citric acid (EFFER-K) 20 MEQ TBEF effervescent tablet 2 tablets by Per NG tube route in the morning, at noon, and at bedtime 120 tablet calcium carbonate-vitamin D3 (CALTRATE) 600-400 MG-UNIT TABS per tab Take 2 tablets by mouth daily 60 tablet Goals (unrecognized section and content) Goals may [...] BE BASED ON THE PRIMARY CLINICAL RECORDS. [employer] provides no warranty or guarantee of the accuracy or completeness of information in this document.
== END 2024-12-21 09:47 | disposition home or self-care (01) ==
LOC: WC 09:46
PROVIDERS: PCP Family Medicine; Visit Provider Physician Assistant
DX: E11.621 Type 2 diabetes mellitus with foot ulcer (principal); L97.521 Non-pressure chronic ulcer of other part of left foot limited to breakdown of skin; L97.422 Non-pressure chronic 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
CPT/HCPCS: 11042

== ENCOUNTER 2025-01-11 10:38 | Outpatient (OUT) | payer MEDICARE, OTHER, MEDICAID, SELFPAY ==
--- OUTSIDE RECORDS SUMMARY | 2025-01-11 10:41 | XMS_ITS | Clinical Summary ---
Author Organization Address [address] [place] [address] Care Team Providers Care Medical Associate Name Role Phone Aamir Purcell DO Primary Care Provider [phone] Allergies Active AllergyReactionsCriticalityNoted DateCommentsMoxifloxacinItching,Swelling ,Rash,Other (See Comments)Low04/07/2017 Abdominal pain UaschnfswkUrxglgjTlwr18/19/2018 burning IfcpprlamtJrbubck75/19/2018 Medications MedicationSigDispense QuantityRefillsLast FilledStart DateEnd DateStatus carvediloL [...] 05/28/2021ctive Active Problems ProblemNoted DateDiagnosed DateOther headache dpcfyucg99/02/2022 Assessment & Plan (05/20/2021 9:25 AM EDT): [...] monitor for improvement with treatment of these. Srjilvj8605/19/2021 Assessment & Plan (05/20/2021 9:25 AM EDT): [...] disorder by virtue of having diabetes. Cervical egxvntmbbhuzk79/01/2022Neck ublguk147895Vwcebmkkqohby68/06/2020Foot ulcer02/25/2019 Overview (09/13/2020): OTHER PART OF FOOT Non-pressure chronic ulcer of other part of left foot with fat layer exposed 08/14/2017Non-pressure chronic ulcer of left lower leg with fat layer exposed 03/28/2017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 involvement without evidenceof dadshfap00/26/2018Non-pressure chronic ulcer of left ankle with fat layer kuuqggz9309/06/2016Non-pressure chronic ulcer of right ankle limited to breakdown of skin08/14/2016Type 2 diabetes mellitus with foot ulcer06/19/2016Fracture of third toe, left, ppdjxf8202/15/2016Closed displaced fracture of first metatarsal bone of left foot with routine ybfyzps6404/17/2015 Trsrjt9103/27/2015Chronic ulcer of great toe of left foot03/27/2015Glaucoma 03/27/2015High uhuxsjjwddm81/08/7869Pscziilwezsw86/08/2016Thyroid disorder 03/27/2015 Immunizations ImmunizationAdministration DatesNext DueInfluenza, Ffixwubemsm18/20/2020 Pneumococcal, Dxxndnchuom43/20/2020 Family History Medical HistoryRelationCommentsPancreatic cancerFatherDiabetesMotherRelation StatusCommentsFatherDeceasedMotherDeceased Social History Tobacco UseTypesPacks/DayYears UsedDateSmoking Tobacco: DalkviOzmlwqzkgz42 04/07/1979 - 04/07/1989mokeless Tobacco: Never Comments:doesn't remember ho w much she smoked Alcohol UseStandard Drinks/WeekCommentsNot Currently0 (1 standard drink = 0.6 oz pure alcohol)rarelyCommentsNoSex and Gender InformationValueDate RecordedSex Assigned at BirthNot on fileLegal TpoXsyjcm30/25/2014 4:56 AM EDT Gender LsuiewadBaoufo31/18/2021 1:29 PM EDTSexual IgiasjadfemFecitpzv60/29/2021 3:56 PM EDT Last Filed Vital Signs Vital SignReadingTime TakenCommentsBlood Jxkcgown370/7904 5:11 PM EDT Ttvgy0939 5:11 PM JIMNyycnhftzzm21.8 ??C (98.3 ??F)05/29/2021 5:11 PM EDTRespiratory Nooz0113 5:11 PM EDTOxygen Vurnsjwfvb53%05/29/2021 5:11 PM EDTInhaled Oxygen Concentration--Ytcmct46.2 kg (167 lb 15.9 oz)05/28/2021 5:00 AM OPFpekRhqlfn901.1 cm (5' 5 )05/19/2021 9:04 AM EDTBody Mass Index27.96 05/19/2021 9:04 AM EDT Plan of Treatment Health MaintenanceDue DateLast DoneCommentsCT Slufzeikycfu1963Colonoscopy 1963Colorectal Cancer Screening/Cggcnqynrv1963Fecal DNA1963 Fecal occult blood test (FOBT,FIT)1963MMR Vaccines (1 of 1 - Standard series)02/07/1964Wellness Visit1966Depression Screening/Follow-Up (PHQ-2/9)1975HIV Ojwbafxqv26/21/1978Hepatitis C Ypaafgbzi65/21/1981 Tetanus/Diphtheria/Pertussis (1 - Tdap)1982Pap Smear02/07/1984Cervical Cancer Ydqfoakqn26/21/1993HPV/Xhrnjx1302/06/1993Zoster Vaccines (2 of 3)12/30/2013 11/04/2013Pneumococcal Vaccine: 50+ Years (2 of 2 - PCV), 07/29/2012COVID-19 Vaccine (1 - season)2024Influenza Vaccine (#1) , 11/04/2013, 11/04/2013RSV Vaccines (1 - 1-dose 75+ series) 2038HIB VaccinesAged OutNo longer eligible based on patient's [...] age to complete this topic Meningococcal B VaccineAged OutNo longer eligible based on patient's age to complete this topicRotavirus VaccinesAged OutNo longer eligible based on patient's age to complete this topic Medical Devices ImplantedTypeAreaManufacturerDevice IdentifierShelf Expiration DateModel / Serial / LotStent-07/27/2012 Implanted:Qty: 1 on 07/27/2012StentRight: Rodríguez [employer]100L ISTENT / [id number] / [id number]:Non-clinical testing has demonstrated that the iStent?? Trabecular Micro-Bypass Stent (Models [id number] and [id number]) is MR Conditional. A patient with this [...] above, the iStent?? Trabecular Micro-Bypass Stent (Models [id number] and [id number]) is not exp ected to produce a clinically significant temperature rise after 15 minutes of continuous scanning.In non-clinical testing, the image artifact caused by the device extends less than 15 mm from the device when imaged with a gradient echo pulse sequence and a 3.0 T MRI system Insurance * Guarantor: Cleo Georges LAccount TypeRelation to PatientDate of BirthPhone Billing AddressPersonal/ReyeizSbpb1965 [phone] (Home) [address] [place] [id number] Advance Directives For more information, please contact: [phone] TypeDate RecordedPatient RepresentativeExplanationPower of Attorney05/28/2021 12:09 PMPower of Attorney05/28/2021 12:01 PM * Full Code - Unverified (Latest Code Status on File) Date ActivatedDate InactivatedComments05/18/2021 10:06 PM05/29/2021 7:56 PM Care Teams Team MemberRelationshipSpecialtyStart DateEnd Date Aamir Purcell DO [address] [place] [address] PCP - GeneralFamily Medicine03/28/17
--- OUTSIDE RECORDS SUMMARY | 2025-01-11 10:41 | XMS_ITS | Clinical Summary ---
Author Organization [facility] Address [address] [place] [address] Care Team Providers Care Machinist Linotype Name Role Phone Aamir Purcell MD Primary Care Provider [phone] Allergies Active AllergyReactionsCriticalityNoted DateCommentsCephalexinHives,Itching, Unknown,Rash,UfmsjlebAbjh14/15/2012 burning MoxifloxacinItching,Unknown,Rash,UklqbgbhSomi47/15/2012 Abdominal pain Peg 0890-Jjl-Kfdsv-Nacl-QepivfUics94/11/2618StsmscxvrrWjabdaxZfek73/19/2014 Mental status changes Passed out Medications MedicationSigDispense [...] route.Active Basaglar KwikPen 100 UNIT/ML pen 08/15/2023ctive sucralfate (Carafate) 1 GM/10ML suspension 08/15/2023ctive tiZANidine (Zanaflex) 4 MG tablet Take 1 tablet as needed by oral route.Active zonisamide (Zonegran) 100 MG capsule Take 1 capsule 3 times a day by oral route.Active brimonidine (AlphaGAN P) 0.2 % ophthalmic solution 05/11/2024tive doxycycline (Vibramycin) 100 MG capsule 04/15/2024tive glipiZIDE (Glucotrol) 10 MG tablet 1 (one) time each day at the same timeActive HYDROcodone-acetaminophen (Gowen) 5-325 MG tablet Take 1 tablet by mouth every 4 (four) hours if neededActive meclizine (Antivert) 25 MG tablet 04/15/2024tive traMADol (Ultram) 50 MG tablet 11/04/2023ctive triamcinolone (Kenalog) 0.1 % cream Indications:Other atopic dermatitisApply (1g) to the affected areas (feet), up to twice a day when flared, do not use one the face, groin, or underarms, 30 day supply 80 g tive doxycycline (Monodox) 100 MG capsule Indications:Traumatic ulcer of left foot, unspecified ulcer stage (HCC)Take 1 capsule, by mouth, bid x 7 days 14 capsule 08/27/2024tive carvedilol (Coreg) 12.5 MG tablet Indications:Primary hypertensionTake [...] crush, chew, or split. 30 tablet ctive Multiple Vitamins-Minerals (multivitamin with minerals) tablet Indications:Other iron deficiency anemiaTake 1 tablet by mouth Daily 30 tablet ctive DULoxetine (Cymbalta) [address] capsule Indications:Current mild episode of major depressive disorder, unspecified whether recurrentTake 1 capsule (60 mg) by mouth Daily 30 capsule /ctive calcium carbonate (Tums Ultra) 1000 MG chewable tablet Indications:HypocalcemiaChew 1 tablet (1,000 mg) at bedtime 30 tablet ctive guaiFENesin (Mucinex) 600 MG 12 hr tablet Indications:Cough, unspecified typeTake 2 tablets (1,200 mg) by mouth in the morning and 2 tablets (1,200 mg) before bedtime. Do not crush, chew, or split. 120 tablet ctive levothyroxine (Tirosint) 112 MCG capsule Indications:Acquired hypothyroidismTake 1 capsule (112 mcg) by mouth in the morning. Take before meals. 30 capsule ctive omeprazole (PriLOSEC) [address] capsule Indications:Gastroesophageal reflux disease without esophagitisTake 1 capsule (40 mg) by mouth in the morning. Take before meals. Do not crush or chew. 30 capsule tive levothyroxine (Tirosint) 112 MCG capsule Take 1 capsule every day by oral route.12/13/2024Discontinued(Reorder) omeprazole (PriLOSEC) [address] capsule Discontinued(Reorder) guaiFENesin (Mucinex) 600 MG 12 hr tablet Indications:Cough, unspecified typeTake 2 tablets (1,200 mg) by mouth in the morning and 2 tablets (1,200 mg) before bedtime. Do not crush, chew, or split. 120 tablet Discontinued(Reorder) Active Problems ProblemNoted DateDiagnosed DatePrimary open angle glaucoma (POAG) of both eyes, moderate stage06/28/2024Left posterior capsular upzsjwefeguqu68/12/2025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 ijmkhodt51/12/2025Dry eyes06/28/2024 Encounters DateTypeDepartmentCare OouuQfenqmndduu18/19/2025bstract [facility] [facility] [address] [place] [address] Aamir Purcell MD 12/23/2024bstract [facility] [address] [place] [address] Aamir Purcell MD 12/22/2024Telephone [facility] [address] [place] [address] [place] Chávez, ARLETTE 12/13/2024Refill [facility] [address] [place] [address] Jany Becerra MA Gastroesophageal reflux disease without esophagitis (Primary Dx); Cough, unspecified type; Acquired apfdninodclfvv10/21/2025Telephone [facility] [address] [place] [address] Maine Chávez, ARLETTE 11/30/2024Telephone [facility] [address] [place] [address] [place] Chávez, ARLETTE 11/23/2024Telephone [facility] [address] [place] [address] [place] Chávez, ARLETTE 11/23/2024Telephone [facility] [address] [place] [address] Arias Cruz MD 11/22/2024Telephone [facility] [address] [place] [address] Maine Chávez, THEOLOGY PROFESSOR 11/02/2024bstract [facility] [address] [place] [address] UnallocatedKatja MD from Last 3 Months Social History Tobacco UseTypesPacks/DayYears UsedDateSmoking Tobacco: Never Assessed CommentsUnknownSex and Gender InformationValueDate RecordedSex Assigned at Not on fileLegal QjfEdxwsz35/15/2023 6:48 PM EDTGender IdentityNot on fileSexual OrientationNot on file Last Filed Vital Signs Vital SignReadingTime TakenCommentsBlood Pressure--Pulse--Temperature-- Respiratory Rate--Oxygen Saturation--Inhaled Oxygen Concentration--Gkdigk57.9 kg (152 lb)04/03/2021 12:00 PM DLCWrelms769.1 cm (5' 5 )04/26/2022 12:00 PM ESTBody Mass Index25.29004/03/2021 12:00 PM EST Plan of Treatment Not on file Insurance Care Teams Team MemberRelationshipSpecialty[place] [address] [place] [address] PCP - GeneralFamily Medicine08/12/22
--- OUTSIDE RECORDS SUMMARY | 2025-01-11 10:41 | XMS_ITS | Clinical Summary ---
Author Organization [facility] Address [address] [place], [place] [address] Care Team Providers Care Loft Patternmaker Name Role Phone BasiliaTobias Lars PALACIOS Primary Care Provider [phone] Allergies Active AllergyReactionsCriticalityNoted DateCommentsMoxifloxacinRash,Swelling, Ztxxjbb8303/23/2015CephalexinHives,Swelling,Jnzddgh1303/23/2015TapentadolMental Status Bhptcw7210/31/2015 Medications MedicationSigDispense QuantityRefillsLast FilledStart DateEnd DateStatus metFORMIN [...] InformationValueDate RecordedSex Assigned at BirthNot on fileLegal IlgCnvfsq99/28/2015 9:26 AM EST Gender IdentityNot on fileSexual OrientationNot on file Last Filed Vital Signs Vital SignReadingTime TakenCommentsBlood Bgjaller688/6909 3:09 PM EDT Pbgiy7393 3:09 PM EDTTemperature--Respiratory Clxq987305/02/2015 3:50 PM EDTOxygen Saturation--Inhaled Oxygen Concentration--Weight--Gnuzzq254.1 cm (5' 5 )03/23/2015 12:42 PM ESTBody Mass Index-- Plan of Treatment Health MaintenanceDue DateLast DoneCommentsAnxiety Ncniwfreq48/21/1981Depression Pekcpcotp00/21/1981HIV Tnggopdxf15/21/1981Hepatitis C Wtgnkajcg07/21/1981 DTaP,Tdap,Td Vaccine (1 - Tdap)1982Cervical Cancer Tafhjnvgb89/21/1984 Mammogram Oaiegaffa66/21/2003CT Ranhgjvwjjmg08/21/2008Cologuard (FIT-DNA) 02/07/20085482Hswipouavlm89/21/2008Colorectal Cancer Mehcdvnre07/21/2008Fecal Occult Blood02/07/2008Lipid Nrnsxjfhm46/21/9380Iwphkvevxtrqm16/21/2008Pneumococcal Vaccine: 50+ (1 of 1 - PCV)2013Shingrix Vaccine (1 of 2)2013Diabetes Siymdylhz58/04/, 03/23/2015Covid-19 Vaccine (1 - 2024- season) 2024Influenza Vaccine (#1)2024RSV Vaccine (1 - 1-dose 75+ series) 2038 Procedures Procedure NamePriorityDate/TimeAssociated DiagnosisCommentsHEMOGLOBIN O5UYyirrmv 03/23/2015 2:21 PM EST 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 HgbA1c greater or equal to 6.5% is considered diagnostic of diabetes. Estimated Average Glucose>240mg/dL03/23/2015 10:11 PM ESTUNIVERSITY HOSPITALS HEALTH [facility] MAIN LABORATORYComment: eAG: (Estimated average glucose) is a calculated value from HgbA1c and is insurance account representative of the average blood glucose level in the last 2-3 month period. Specimen (Source)Anatomical Location / LateralityCollection Method / Volume Collection TimeReceived TimeBlood specimen (specimen)WHOLE BLOOD SPECIMEN / Gllkrhf7903/23/2015 2:21 PM EST03/23/2015 2:26 PM EST Narrative Authorizing ProviderResult TypeResult StatusPayam SoltanzadehLABORATORYFinal ResultPerforming OrganizationAddressCity/State/ZIP CodePhone Number [facility] [address] [place] [address] from Last 3 Months or Most Recently Relevant to Health Maintenance Insurance Care Teams Team MemberRelationshipSpecialtyStart DateEnd Date Tobias Cui DO PCP - GeneralFamily Ajmbnwbs66/28/15
--- OUTSIDE RECORDS SUMMARY | 2025-01-11 10:41 | XMS_ITS | Clinical Summary ---
Author Organization [facility] Address [address], [address] [place] [address] Care Team Providers Care New Autos Delivery Driver Name Role Phone Migue Cole MD Primary Care Provider [phone] Allergies Active AllergyReactionsCriticalityNoted DateCommentsMoxifloxacin Hydrochloride LcrmArn9512/02/20115045CqcrxoasluKczdYem38/15/0027BoikshjoydomGanrLlww49/11/2017Peg 0769-Air-Vncea-Nacl-JcvbeoJsdu90/11/2017TapentadolOther (See Comments)Medium 10/31/2015 Mental status changes Medications [...] Active Problems ProblemNoted DateDiagnosed DateS/P cervical spinal cmgwgc2604/02/2022nemia due to blood loss09/26/2021cute respiratory mosqclx8509/25/2021Ventilator associated /06/2022Tracheostomy care09/22/2021Tracheostomy in place09/22/2021 Delirium due to multiple fodbzfnghc51/02/2022ischarge planning afncfs3909/16/2021 CSF cfywbzqdlx99/26/2022ther cranial cerebrospinal fluid leak08/22/2021 Rvgtbxrrevtxxe75/29/7314ERHUI76/28/2022Metabolic cclmypttjxrqnf27/14/2022MSSA (methicillin susceptible Staphylococcus aureus) obtxxfzfkk93/14/2022epsis 06/29/2021taphylococcus aureus bfeavowaku47/13/0442Kuqtjpskneoquv65/13/2022 Zkqrsgyksbd78/13/2022Type 2 diabetes mellitus with diabetic polyneuropathy 06/29/2021rimary yokzurxtaqly08/13/2022ltered mental state06/28/2021ellulitis of left ostnqd9607/16/2018EncephalopathyToxic metabolic 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)Upper GI [...] InformationValueDate RecordedSex Assigned at BirthNot on fileLegal YftRsderz01/10/2013 10:05 AM ESTGender IdentityNot on fileSexual OrientationNot on file Last Filed Vital Signs Vital SignReadingTime TakenCommentsBlood Xgoynxsi475/8301/23/2023 10:54 AM EST Fuoxl783501/23/2023 10:54 AM JCSJblcylmqbwc04.6 ??C (97.9 ??F)01/23/2023 10:54 AM ESTRespiratory Tmzo203803/26/2022 10:54 AM ESTOxygen Pskzvsxlfq51%01/23/2023 10:54 AM ESTInhaled Oxygen Concentration--Hudomm34.2 kg (135 lb)01/23/2023 10:54 AM FYFXvberp776.1 cm (5' 5 )08/15/2022 9:03 AM EDTBody Mass Index22.47008/15/2022 9:03 AM EDT Plan of Treatment Health MaintenanceDue DateLast DoneCommentsDepression Dymupm0902/06/1975HIV screen 1978Diabetic retinal exam1981Hepatitis C qzzzch4802/06/1981 DTaP/Tdap/Td vaccine (1 - Tdap)1982Pap smear02/07/1984Cervical cancer gjrqap5702/06/1993HPV (without or with Pap)02/06/19933605Wcowdyjvais15/21/2008Fecal- DNA (Cologuard): Average risk02/07/2008Sigmoidoscopy/CT yvmgkvvyskqm02/21/2008 Shingles vaccine (2 of 3)12/30/Diabetic Alb to Cr ratio (uACR) test06/25/reast cancer otheew92/16/Pneumococcal 50+ years Vaccine (2 of 2 - PCV)/, 07/29/20128569Zhprel70/12/2023 06/28/2021, 06/28/2016, 06/25/2013, Additional history existsDiabetic foot exam /olorectal Cancer Iipsvn6307/24/2022FIT/FOBT: Average risk /1C test (Diabetic or Prediabetic)/, 06/28/2021, 07/19/2017, Additional history existsGFR test (Diabetes, CKD 3-4, OR last GFR 15-59)/12/2021, 09/25/2021, 09/24/2021, Additional history existsAnnual Wellness Visit (Medicare)01/13/2023Respiratory Syncytial Virus (RSV) or age 60 yrs+ (1 - Risk 60-74 years 1-dose series)2023Flu vaccine (#1)/, 11/04/2013COVID-19 Vaccine ( - season)2024Pneumococcal 0-49 years VfcszogNgbxmitiafuw69/20/2020, 07/29/2012Hepatitis A vaccineAged OutNo longer eligible based [...] LotSystem Spnl Seal 3ml Exact Duraseal - [id number] Implanted:Qty: 1 on 07/06/20[facility]: Spine CervicalINTEGRA LIFESCIENCES BRETT-[id number] / / Kit Bne Grft Xsm 1.4cc Rhbmp-2 Absrb Cllgn Spng Infuse - [id number] Implanted:Qty: 1 on 09/25/2021 [facility]: Spine CervicalMEDTRONIC SPINALGRAFT TECH-WD02/16/[id number] / [id number] / [id number] Cellr Bne Matrx Influx Sparc 5cc - [id number] Implanted:Qty: 1 on 09/25/2021 [facility]: Spine CervicalISTO TECHNOLOGIES INC-WD05/04/[id number] / [id number] / [id number] Cellr Bne Matrx Influx Sparc 5cc - [id number] Implanted:Qty: 1 on 09/25/2021 [facility]: Spine CervicalISTO TECHNOLOGIES INC-WD05/04/20230076HFGZOC01 / -[id number] / [id number] Spnl L34mm Brv65ll Occipitocervical Up Thor Multiaxial - [id number] Implanted:Qty: 2 on 09/25/2021 [facility]: Spine CervicalMEDTRONIC SOFAMOR DANEK-[id number] / / Bishnu Spnl L25mm Dia3.5mm Occipitocervical Up Thor Precut - [id number] Implanted:Qty: 2 on 09/25/2021 [facility]: Spine CervicalMEDTRONIC SOFAMOR DANEK-[id number] / / Set Screw Spinal M6 - [id number] Implanted:Qty: 4 on 09/25/2021 by [facility]: Spine CervicalMEDTRONIC SOFAMOR DANEK-[id number] / / Procedures Procedure NamePriorityDate/TimeAssociated DiagnosisCommentsBASIC METABOLIC PANEL W/ REFLEX TO MG FOR LOW PNrjcbso08/11/2022 2:38 AM EDT HEMOGLOBIN Q2FLqafwjq26/24/2022 7:34 AM EDT OCCULT BLOOD SCREENStat Sunquest Label print07/24/2021 2:30 PM EDT LIPID RRNUTZvoeppg33/12/2022 9:38 PM EDT MICROALBUMIN, FBRryhqdt03/09/2014 7:05 AM EDT from Last 3 Months or Most Recently Relevant to Health Maintenance Results * (ABNORMAL) Basic Metabolic Panel w/ Reflex to MG (09/27/2021 2:38 AM EDT) ComponentValueRef RangeTest MethodAnalysis TimePerformed AtPathologist DeafxbeqfChibqeq172(H)70 - 99 mg/dL09/27/2021 2:38 AM EDTMERCY LABORATORIESBUN 126 - 20 mg/dL09/27/2021 2:38 AM EDTMERCY LABORATORIESCreatinine0.540.50 - 0.90 mg/dL09/27/2021 2:38 AM EDTMERCY LABORATORIESCalcium9.18.6 - 10.4 mg/dL 09/27/2021 2:38 AM EDTMERCY KLZULRSBPCEZKxhvrn158290 - 144 mmol/L09/27/2021 2:38 AM EDTMERCY LABORATORIESPotassium3.2(L)3.7 - 5.3 mmol/L09/27/2021 2:38 AM EDTMERCY WXMEQCOZVNVMLxdtdmjl81525 - 107 mmol/L09/27/2021 2:38 AM EDTMERCY HBHDRJGPLCXPVW41069 - 31 mmol/L09/27/2021 2:38 AM EDTMERCY LABORATORIESAnion Blf253 - 17 mmol/L09/27/2021 2:38 AM EDTMERCY LABORATORIESGFR Non->60>60 mL/min09/27/2021 2:38 AM EDTMERCY LABORATORIESGFR >60>60 mL/min09/27/2021 2:38 AM EDTMERCY LABORATORIESGFR Comment 09/27/2021 2:38 AM EDTMERCY LABORATORIESComment: Average GFR for 50-59 years old: 93 mL/min/1.73sq m Chronic Kidney Disease: <60 mL/min/1.73sq m Kidney failure: <15 mL/min/1.73sq m ? eGFR calculated using average adult body mass. Additional eGFR calculator available at: ? http://www.[employer]/multiple_crcl_2012.htm ? Specimen (Source)Anatomical Location / LateralityCollection Method / Volume Collection TimeReceived TimeBLOOD SPECIMEN / Nmuyque7509/27/2021 2:38 AM EDT 09/27/2021 2:42 AM EDT Narrative Authorizing ProviderResult TypeResult StatusDarleen Carmona MDCHEMISTRY ORDERABLES Edited Result - FinalPerforming OrganizationAddressCity/State/ZIP CodePhone Number [employer] [address] [place] [address], [facility] [phone] * Hemoglobin A1C (09/09/2021 7:34 AM EDT)ComponentValueRef RangeTest Method Analysis TimePerformed AtPathologist SignatureHemoglobin A1C5.14.0 - 6.0 % 09/09/2021 7:34 AM EDTMERCY LABORATORIESEstimated Avg Xlnvoxk071wf/dL 09/09/2021 7:34 AM EDTMERCY LABORATORIESComment: The ADA and AACC recommend providing the estimated average glucose result to permit better patient understanding of their HBA1c result. Specimen (Source)Anatomical Location / LateralityCollection Method / Volume Collection TimeReceived Time09/09/2021 7:34 AM EDT09/09/2021 8:11 AM EDT Narrative Authorizing ProviderResult TypeResult StatusChris Bascarlett MDCHEMISTRY ORDERABLES Final ResultPerforming OrganizationAddressCity/State/ZIP CodePhone Number [employer] [address] [place] [address], [facility] [phone] * (ABNORMAL) OCCULT BLOOD SCREEN (07/24/2021 2:30 PM EDT)ComponentValueRef Range Test MethodAnalysis TimePerformed AtPathologist SignatureOccult Blood, Stool #1POSITIVE(A)LDZNWNZL29/07/2022 2:30 PM EDTMERCY LABORATORIESDate, Stool #1 6,2,1704507/24/2021 2:30 PM EDTMERCY LABORATORIESTime, Stool #[id number] 2:30 PM EDTMERCY LABORATORIESSpecimen (Source)Anatomical Location / Laterality Collection Method / VolumeCollection TimeReceived TimeSTOOL SPECIMEN / Unknown 07/24/2021 2:30 PM EDT07/25/2021 12:13 AM EDT Narrative Authorizing ProviderResult TypeResult StatusXin [place] MDBODY FLUIDS AND STOOLS ORDERABLESFinal ResultPerforming OrganizationAddressCity/State/ZIP CodePhone Number [facility] [address] [place] [address], [facility] [phone] * LIPID PANEL (06/28/2021 9:38 PM EDT)ComponentValueRef RangeTest MethodAnalysis TimePerformed AtPathologist EsetsdknwZzcsltybmts936<200 mg/dL06/28/2021 9:38 PM EDTMERCY LABORATORIESComment: Cholesterol Guidelines: <200 Desirable 200-240 ??Borderline >240 Undesirable HDL71>40 mg/dL06/28/2021 9:38 PM EDTMERCY LABORATORIESComment: HDL Guidelines: <40 Undesirable 40-59 ?Borderline >59 Desirable LDL Ampzvvvahus772 - 130 mg/dL06/28/2021 9:38 PM EDTMERCY LABORATORIESComment: [...] / Volume Collection TimeReceived TimeBLOOD SPECIMEN / Jebeoob7106/28/2021 9:38 PM EDT 06/28/2021 9:38 PM EDT Narrative Authorizing ProviderResult TypeResult StatusSubrabola Jewell MDCHEMISTRY ORDERABLESFinal ResultPerforming OrganizationAddressCity/State/ZIP CodePhone Number [address] [address], [facility] [phone] * Microalbumin, Ur (06/25/2013 7:05 AM EDT)ComponentValueRef RangeTest Method Analysis TimePerformed AtPathologist SignatureAlbumin Urine12<21 mg/L 06/25/2013 9:11 PM EDTMHPN LABCreatinine, Ur166.139.0 - 259.0 mg/dL06/25/2013 9:11 PM EDTMHPN LABComment: The reference range and other method performance specifications have not been established for this body fluid. ??The test result must be integrated into the clinical context for interpretation. Microalb/Bar Tender. Fwewy6uit/mg creat06/25/2013 9:11 PM EDTMHPN LABUrine Microalbumin Yegjmj0606/25/2013 9:11 PM EDTMHPN LABComment: REFERENCE RANGE NORMAL ? = 0 - 13 ?? mcg/mg creat BORDERLINE = 14 - 30 ??mcg/mg creat ABNORMAL = >30 mcg/mg creat Performed at [place] [address] Specimen (Source)Anatomical Location / LateralityCollection Method / Volume Collection TimeReceived Time06/25/2013 7:05 AM EDT06/25/2013 7:06 AM EDT Narrative Authorizing ProviderResult TypeResult StatusDanitorsten ZIMMERMAN ORDERABLES Edited Result - FinalPerforming OrganizationAddressCity/State/ZIP CodePhone Number [facility] [address] [place] [address], [facility] [phone] [facility] from Last 3 Months or [...] MemberRelationshipSpecialtyStart DateEnd Date Migue Cole MD [address] [place] [address] PCP - GeneralInternal Medicine08/14/21
--- OUTSIDE RECORDS SUMMARY | 2025-01-11 10:41 | XMS_ITS | Encounter Summary ---
Author Organization [facility] Address [address] [place] [address] Care Team Providers Care Histologist Name Role Phone Aamir Purcell MD Primary Care Provider [phone] Encounter Details DateTypeDepartmentCare Team (Latest Contact Info)Elgbpwogxul81/19/2025bstract [facility] [address] [place] [address] Aamir Purcell MD [address] [place] [address] Social History Tobacco UseTypesPacks/DayYears UsedDateSmoking Tobacco: Never Assessed CommentsUnknownSex and Gender InformationValueDate RecordedSex Assigned at Not on fileLegal UauNplwvz16/15/2023 6:48 PM EDTGender IdentityNot on fileSexual OrientationNot on filedocumented as of this encounter Plan of Treatment Not on file documented as of this encounter Visit Diagnoses Not on filedocumented in this encounter Care Teams Team MemberRelationshipSpecialtyStart DateEnd Date Aamir Purcell MD [address] [place] [address] PCP - GeneralFamily Medicine08/12/22documented as of this encounter
--- OUTSIDE RECORDS SUMMARY | 2025-01-11 10:41 | XMS_ITS | Clinical Summary ---
Author Organization [facility] Address [address] [place] [address] Care Team Providers Care Fruit Farmworker Name Role Phone Aamir Purcell DO Primary Care Provider [phone] Social History Tobacco UseTypesPacks/DayYears UsedDateSmoking Tobacco: Never AssessedUT Safety & EnvironmentAnswerDate RecordedFear of Current or Ex-PartnerNot on file 04/10/2023Emotionally AbusedNot on file04/10/2023hysically AbusedNot on file 04/10/2023Sexually AbusedNot on file4Physically or Sexually AbusedNot on file04/10/2023CommentsUnknownSex and Gender InformationValueDate RecordedSex Assigned at BirthNot on fileLegal XbjKbluuv43/29/2022 10:27 PM EDT Gender IdentityNot on fileSexual OrientationNot on file Last Filed Vital Signs Vital SignReadingTime TakenCommentsBlood Zehwsoaj696/7307 2:28 PM EDT Pulse--Qvewndkvflo73.1 ??C (98.7 ??F)08/26/2018 2:24 PM EDTRespiratory Rate-- Oxygen Saturation--Inhaled Oxygen Concentration--Twtvqd26.9 kg (152 lb) 08/26/2018 2:24 PM XEXJbcfhl807.1 cm (5' 5 )08/26/2018 2:24 PM EDTBody Mass Index25.2907 2:24 PM EDT Plan of Treatment Health MaintenanceDue DateLast DoneCommentsCT Dbeyfflyunxx1963Colonoscopy 1963Colorectal Cancer Zhejmreig1963FIT-DNA1963FIT1963 FOBT1963Medicare Annual Wellness (AWV)1963 2303Flnffyismddjo1963 Diabetes: Retinopathy Tasqrqabp30/21/1973Depression Cyyaitxkk76/21/1975Diabetes: Urine Protein Glqizyiec70/21/1982Pap Smear02/07/1984Adult Gpbnydb5002/06/1985 Cervical Cancer Nwtpekdyq87/21/1993HPV/[place]oault7302/06/19931044Yuvipbqkm42/21/2003Zoster Vaccines (1 of 2)Diabetes: Hemoglobin A1C10/11/2018 07/11/2018COVID-19 [...] complete this topic Procedures Procedure NamePriorityDate/TimeAssociated DiagnosisCommentsHEMOGLOBIN W2UAyaic 07/11/2018 6:08 AM EDT from Last 3 Months or Most Recently Relevant to Health Maintenance Results * (ABNORMAL) Hemoglobin A1C (07/11/2018 6:08 AM EDT)ComponentValueRef RangeTest MethodAnalysis TimePerformed AtPathologist SignatureHemoglobin A1C8.9(H)4.0 - 6.0 %LAB CONVERSIONSEstimated Average Saprfmm247(H)70 - 126 mg/dLLAB CONVERSIONSSpecimen (Source)Anatomical Location / [...] DateEnd Aamir Navarrete DO [address] [place] [address] [facility]10/19/21
--- OUTSIDE RECORDS SUMMARY | 2025-01-11 10:42 | XMS_ITS | Clinical Summary ---
Author Organization [facility] Address [address] [place] [address] Phone Care Team Providers Care Tie In Hand Name Role Phone Physician, Pcp Unknown Primary Care Provider Dayanna vailable Allergies Active AllergyReactionsCriticalityNoted DhzwTurcjqilGxpldrcljg13/17/2022 IxjwfypadpMvpvcfn66/17/2022 Medications MedicationSigDispense QuantityRefillsLast FilledStart DateEnd DateStatus insulin [...] if needed (pain).Active Active Problems ProblemNoted DateDiagnosed UvrbKewwfghsnkpxsx58/18/8624Azapdxlgy09/18/2022Chest pain of unknown vqedzqxl65/17/2022 Medical History Medical HistoryDateCommentsDiabetes mellitus (CMS/HCC V24, [...] RecordedSex Assigned at BirthNot on fileLegal Sex Bzsezc0804/05/2021 1:23 PM ESTGender IdentityNot on fileSexual OrientationNot on file Obstetrics History Last Filed Vital Signs Vital SignReadingTime TakenCommentsBlood Dbhouywo292/8104/06/2021 7:37 PM EST Vfywy710504/06/2021 7:37 PM HFOGeueptfxgxk50.5 ??C (97.7 ??F)04/06/2021 7:37 PM ESTRespiratory Wdqn348504/06/2021 7:37 PM ESTOxygen Qqqywuokne599%04/06/2021 7:37 PM ESTInhaled Oxygen Concentration--Mfjltc78 kg (147 lb 11.3 oz)04/06/2021 10:26 AM PQCNfkvmf878 cm (4' 11.84 )04/06/2021 10:26 AM ESTBody Mass Iftrx4347/18/2022 10:26 AM EST Plan of Treatment Health MaintenanceDue DateLast DoneCommentsBreast Cancer Hiktaxmjl1963 Colorectal Cancer Screening: Amshlmwlosh1963Diabetes: Annual Foot Exam 1973DTaP,Tdap,and Td Vaccines (1 - Tdap)1982Cervical Cancer Screening: Pap Smear02/07/1984RSV Immunization Adult Patients (1 - Risk 50-74 years 1-dose series)2013Zoster Vaccines (2 of 3) Pneumococcal Vaccine: 50+ Years (2 of 2 - PCV)/, 07/29/2012 HIV Xsftiigfx70/17/2022Hepatitis C Cwtdmskoj54/17/2022Medicare Annual Wellness Visit2Diabetes: Blood Sugar Control Test (HGBA1C)/, 03/15/2021, 2Diabetes: Annual Retina Eye Exam Diabetes: Annual Urine Albumin-Creatinine Ratio (uACR)ocial Influencers of Health Qkiesydis85/2Diabetes: Annual GFR (Glomerular Filtration Rate)/, 04/05/2021, 03/15/2021, Additional history existsHypertension/CHF/CAD Annual BMP Blood Test04/06/2022 04/06/2021, 04/05/2021, 03/15/2021, Additional history existsDepression Freqhmytv77/01/2025COVID-19 Vaccine ( season)2024Influenza Vaccine (#1)/, 11/04/2013, 11/04/2013Cholesterol Screening (Lipid Panel)7003/15/2021, 03/15/2021HIB VaccinesAged OutNo longer eligible based on patient's age to complete this topicHPV VaccinesAged OutNo longer eligible based on patient's age to complete this topicHepatitis A VaccinesAged OutNo longer eligible based on patient's age to complete this topic Hepatitis B VaccinesAged OutNo longer eligible based on [...] complete this topicRSV Immunization Patients Under 20 monthsAged OutNo longer eligible based on patient's age to complete this topicVaricella VaccinesAged OutNo longer eligible based on patient's age to complete this topic Procedures Procedure NamePriorityDate/TimeAssociated DiagnosisCommentsCOMPREHENSIVE METABOLIC PIBIKQiaylxn77/18/2022 4:22 AM EST HEMOGLOBIN H6IIhoohns21/18/2022 12:42 AM EST from Last 3 Months or Most Recently Relevant to Health Maintenance Results * (ABNORMAL) Comprehensive metabolic panel (04/06/2021 4:22 AM EST)Component ValueRef RangeTest MethodAnalysis TimePerformed AtPathologist SignatureSodium 463774 - 145 mmol/L LAB CHEMISTRY METHOD 04/06/2021 5:31 AM [facility] LABPotassium4.23.6 - 5.1 mmol/L LAB CHEMISTRY METHOD 04/06/2021 5:31 AM [facility] AUGXbgjdjxr66080 - 107 mmol/L LAB CHEMISTRY METHOD 04/06/2021 5:31 AM [facility] GBLVE358(L)22 - 32 mmol/L LAB CHEMISTRY METHOD 04/06/2021 5:31 AM [facility] LABAnion Gap96 - 18 LAB CHEMISTRY METHOD 04/06/2021 5:31 AM [facility] ZUGGosahsg238(H)70 - 99 mg/dL LAB CHEMISTRY METHOD 04/06/2021 5:31 AM [facility] AAKBZM06(H)8 - 20 mg/dL LAB CHEMISTRY METHOD 04/06/2021 5:31 AM [facility] LABCreatinine1.06 0.60 - 1.30 mg/dL LAB CHEMISTRY METHOD 04/06/2021 5:31 AM [facility] QGMbTCP31 mL/min/1.73m2 LAB CHEMISTRY METHOD 04/06/2021 5:31 AM [facility] LABBUN/Creatinine Ratio20.8(H)12.0 - 20.0 LAB CHEMISTRY METHOD 04/06/2021 5:31 AM [facility] LABCalcium9.08.9 - 10.3 mg/dL LAB CHEMISTRY METHOD 04/06/2021 5:31 AM [facility] LABAST (SGOT)14(L) 15 - 41 unit/L LAB CHEMISTRY METHOD 04/06/2021 5:31 AM [facility] LABALT (SGPT)117 - 52 unit/L LAB CHEMISTRY METHOD 04/06/2021 5:31 AM [facility] LABAlkaline Zdwoxlgjopc9141 - 91 unit/L LAB CHEMISTRY METHOD 04/06/2021 5:31 AM [facility] LABTotal Protein 6.36.1 - 7.9 g/dL LAB CHEMISTRY METHOD 04/06/2021 5:31 AM [facility] LABAlbumin3.4(L) 3.5 - 4.8 g/dL LAB CHEMISTRY METHOD 04/06/2021 5:31 AM [facility] LABTotal Bilirubin 0.40.3 - 1.2 mg/dL LAB CHEMISTRY METHOD 04/06/2021 5:31 AM [facility] LABSpecimen (Source)Anatomical Location / LateralityCollection Method / VolumeCollection TimeReceived TimeBloodVenous blood specimen / UnknownVenipuncture / Unknown 04/06/2021 4:22 AM EST04/06/2021 5:03 AM EST Narrative Authorizing ProviderResult TypeResult StatusSin HERNANDEZ BLOOD ORDERABLES Final ResultPerforming OrganizationAddressCity/State/ZIP CodePhone Number [facility] [address] [place] [address] * (ABNORMAL) Hemoglobin A1c (04/06/2021 12:42 AM EST)ComponentValueRef RangeTest MethodAnalysis TimePerformed AtPathologist SignatureHemoglobin A1C11.8(H)<=5.6 % LAB CHEMISTRY METHOD 04/06/2021 12:31 PM [facility] LABComment: HbA1c values of 5.7-6.4 percent indicate an increased risk for developing diabetes mellitus. HbA1c values greater than or equal to 6.5 percent are diagnostic of diabetes mellitus. For diagnosis of diabetes in individuals without unequivocal hyperglycemia, results should be confirmed by repeat testing. Mean Bld Glu Estim.292mg/dL LAB CHEMISTRY METHOD 04/06/2021 12:31 PM ESTSELECT [facility] LABSpecimen (Source) Anatomical Location / LateralityCollection Method / VolumeCollection Time Received TimeBloodVenous blood specimen / UnknownVenipuncture / Unknown 04/06/2021 12:42 AM EST04/06/2021 12:50 AM EST Narrative Authorizing ProviderResult TypeResult StatusAkojo HERNANDEZ BLOOD ORDERABLES Final ResultPerforming OrganizationAddressCity/State/ZIP CodePhone Number [facility] [address] [address] from Last 3 Months or Most Recently [...] DateEnd Date Physician, Pcp Unknown PCP - General2/17/22
--- OUTSIDE RECORDS SUMMARY | 2025-01-11 10:48 | XMS_ITS | CCD ---
Author Organization [facility] CliniSyny Care Team Providers Care Will Call Clerk Name Role Phone Neri Purcell Unavailable Pili Gilliam Unavailable Reji Miramontes Unavailable Unavailable Unavailable Unavailable Luis Miguel Kaur Unavailable Neri Purcell Unavailable Luis Miguel Kaur Unavailable Tisha Arriaga [...] Pili Gilliam Unavailable Reji Miramontes Unavailable Neri Purcell Primary Care Provider Pili Gilliam Unavailable [phone] Craske, W. Don Unavailable HOUSE, NERI P [...] Unavailable Fe SOMMER, Reji PALACIOS Don Unavailable [phone] MARIELA JR., JEF Attending Unavailable HOUSE, NERI [...] Attending Unavailabl e PHYSICIAN PHYSICIAN, PCP PCP UNKNOWN~[phone] Primary Care Unavailable BANNING, KIKE Consulting Unavailable PRECIOUS, BLASE Attending Unavailable PRECIOUS, BLASE Admitting Unavailable BANNING, KIKE Consulting Unavailable BANNING, KIKE Consulting Unavailable BAUERLE, CLARISA Consulting Unavailable BAUERLE, CLARISA Consulting Unavailable BAUERLE, CLARISA Consulting Unavailable VAISHALI ERAZO Referring Unavailable PHYSICIAN PHYSICIAN, PCP PCP UNKNOWN~[phone] Primary Care Unavailable House DO, Neri P Primary Care Provider David VIVEROS, Skylar Rizo Unavailable Kartik Mejia MD Unavailable Tisha Arriaga MD Unavailable Luis Miguel Kaur MD Unavailable Lucas MERCADO, Chris A Unavailable Kartik Mejia MD Unavailable [phone] HOUSE, NERI P Primary Care Unavailable TORI HART Attending Unavailable MARIELA AHMADI, JEF Admitting Unavailable HOUSE, NERI P Primary Care Unavailable TORI HART Referring Unavailable HOUSE, NERI P Primary Care Unavailable ADRIANE, NBA TRIMBLE Admitting Unavaila ble GRIFFIN, MAC STERLING Consulting Unavailable ALAHMADRASHADA Attending Unavailable House DO, Sr Neri P Primary Care Provider [phone] House DO, Sr Neri P Primary Care Provider [phone] JERRY POZO Attending Unavailable HERCHER, JOHNY Referring [...] Unavailable Ganga Savage MD Primary Care Provider [phone] Rufus Perez Attending Unavailable Rufus Perez Admitting Unavailable Ganga Savage MD Primary Care Provider [phone] GANGA SAVAGE Primary Care Unavailable ALISIA, ALISIA VAISHALI Referring Unavailable ALISIA, ALISIA VAISHALI Referring Unavailable JANETTE GANGA E Primary Care Unavailable ALISIA, ALISIA VAISHALI Referring Unavailable JANETTE, GANGA E Primary Care Unavailable [place] Neri VIVEROS Primary Care Provider Jami Onofre Attending Unavailable JemimaJami lambert Attending Unavailable Jami Onofre Attending Unavailable ROYER ALALars Admitting Unavailable LEILA LINTON Attending Unavailable Garfield Rodriguez Attending Unavailable House Neri VIVEROS Primary Care Provider SKYLAR WHITFIELD Attending Unavailable REBECA ROJAS Referring Unavailable RAMONA CAMPUZANO Attending Unavailable SKYLAR WHITFIELD Attending Neri Gamble MD Primary Care Provider Allergies Allergy ClassificationReported Allergen(s)Allergy TypeDate of OnsetReaction(s) FacilityCephalosporins (antibiotic) (3 sources)CephalexinDrug Tqbpxnb20-67-9893ZdlaivvDdnbMcgxyvBdywde Agonists (3 sources)tapentadolDrug Xexhhmc37-88-4584ZapwzfwEivpQdsmitGwxtzjiyoy (antibiotic) (3 sources)moxifloxacinDrug Vcosnnu00-07-1252Ptligxb, Swelling, Rash, Other (See Comments)[facility] (20 sources)cephalexin; Translations: [CEPHALEXIN]Propensity to adverse reactions to ogwl94-42-4243Bycrkqh, Rash, Hives, Unknown, SwellingOhioHealth (20 sources)moxifloxacin; Translations: [MOXIFLOXACIN]Propensity to adverse reactions to upkx56-49-5425Oybofvw, Swelling, Rash, Other (See Comments), UnknownOhioHealth (20 sources)tapentadol; Translations: [TAPENTADOL]Propensity to adverse reactions to dvoa52-66-5506TpjakmgGnsvWojipv (20 sources)polyethylene glycol 3350 / potassium chloride / sodium bicarbonate / sodium chloride / sodium sulfateDrug Lalksdz56-58-9305OwbjThe [facility] Work Phone: (20 sources)tapentadolDrug Fwpyeya65-83-2084Ivcuz (See Comments)[facility] Work Phone: (3 sources)Cephalexin; Translations: [Keflex]Drug Eziaoct25-01-5502[facility] (3 sources)moxifloxacin; Translations: [Avelox]Drug Lcwzrak85-37-1135Nye [facility] Repository (3 sources)tapentadol; Translations: [Nucynta]Drug Ztouxnm39-27-9995Pfq [facility] Repository (1 source)Bacitracin / Neomycin / Polymyxin BDrug Ritocqx74-14-4774QffPike [facility] Repository (1 source)Calcium oxideDrug Vgrneuq51-18-5428Ght [facility] Repository (1 source)POLYETHYLENE GLYCOL 3350Drug Mbmtpdd34-51-2523Mpt [facility] Repository (1 source)Sulfamethoxazole / TrimethoprimDrug Nsgexpq32-94-5881Cof [facility] Repository (1 source)fentaNYL; Translations: [fentaNYL][facility] (1 source)POLYETHYLENE GLYCOL 3350 / Potassium Chloride / Sodium Bicarbonate / Sodium Chloride / sodium sulfate; Translations: [GoLYTELY]Drug [facility]ergyK[facility] Repository (1 source)Shellfish; Translations: [shellfish]Propensity to adverse reactions (disorder)[facility] Repository (1 source)Shrimp product; Translations: [Shrimp]Propensity to adverse reactions (disorder)[facility] Repository (15 sources)Tapentadol hydrochlorideAllergy to bvntefrvo95-19-4801TsjjcmlKJNJ Healthcare Medications Current Medications MedicationDrug Class(es)DatesSig (Normalized)Sig (Original)acetaminophen 300 mg / codeine phosphate 30 mg oral tablet (20 sources)Opioid AgonistStart: 01-15-2017 End: 59-40-3898axmq 1 tablet by mouth twice daily as needed for pain acetaminophen-codeine 300-30 MG Tab per tablet TAKE 1 TABLET BY MOUTH TWICE A DAY NEEDED FOR PAIN 0 01/15/2017 ActiveStart: 21-85-7728dspmsrsfwnwvq-codeine 300-30 MG Tab per tablet hasn't used for a while patient reports 0 01/15/2017 Activeacetaminophen-codeine (TYLENOL #3) 300-30 mg per tablet every 6 (six) hours as needed. 0 ActiveacetaZOLAMIDE 250 mg oral tablet (6 sources)Carbonic Anhydrase InhibitorStart: 04-24-2018 End: 59-98-2971skhr 1 tablet by mouth twice dailyacetaZOLAMIDE (DIAMOX) 250 MG tablet Take 250 mg by mouth 2 times daily 0 04/24/2018 06/28/2021 Discontinued (LIST CLEANUP)albuterol 0.83 mg/ml inhalation solution (15 sources)beta2-Adrenergic Agonistalbuterol (2.5 MG/3ML) 0.083% nebulizer solution Take 3 mL by nebulization every 4 (four) hours if needed Active amitriptyline hydrochloride 25 mg oral tablet (20 sources)Tricyclic Antidepressant End: 16-10-4509zjodnnawylzrr (Elavil) 25 MG tablet Take 1 tablet as needed by oral route. Activeaspirin 325 mg oral tablet (20 sources)Nonsteroidal Anti-inflammatory DrugStart: 11-22-2024 End: 47-59-9661ajds 1 tablet by mouth once dailyaspirin 325 MG tablet Indications: Primary hypertension Take 1 tablet (325 mg) by mouth Daily 30 tab let 11 11/22/2024 11/22/2025 ActiveStart: 04-62-6828crew 81 mg by mouth once daily81 mg, Oral, DAILY, First dose on 06/30/21 at 0900, Until Discontinued Start: 06-28-2021 End: 31-03-9505calheah chewable tablet 81 mgStart: 04-07-2017 End: 69-61-3553phlp 1 tablet by mouth once dailyaspirin 325 MG tablet Take 325 mg by mouth daily 0 04/07/2017 ActiveStart: 86-36-3490tbxf 1 tablet by mouth once dailyaspirin 325 MG EC tablet Take 1 (one) tablet (325 mg total) by mouth daily. 60 tablet 5 04/07/2017 Active End: 10-75-9252mxcd 1 tablet by mouth once dailyaspirin 81 MG EC tablet Take 81 mg by mouth daily. 04/07/2017 Discontinuedbisacodyl 10 mg rectal suppository (3 sources)Stimulant LaxativeStart: 07-29-2021 End: 83-02-9570Dpeol: 02-21-6730ogva 5 mg by mouth once daily as needed5 mg, Oral, DAILY PRN, Starting on Nohemy 06/28/21 at 2107, Until Discontinued, Constipation First linetherapy for constipation.brimonidine tartrate 2 mg/ml ophthalmic solution (20 sources)alpha-Adrenergic AgonistStart: 96-12-1732jogltkurwmx (AlphaGAN P) 0.2 % ophthalmic solution 05/11/2024 ActiveStart: 53-14-7951cvmz 1 drop(s) into the eye(s) twice dailybrimonidine (ALPHAGAN P) 0.15 % ophthalmic solution Apply 1 drop to eye 2 times daily Left eye 0 11/15/2019 ActiveStart: 61-16-6462mqqp 1 drop(s) into the eye(s) twice dailybrimonidine (ALPHAGAN) 0.15 % ophthalmic solution Administer 1 drop into the left eye 2 (two) timesa day . 0 11/15/2019 Activecalcium carbonate 1000 mg chewable tablet (2 sources)Start: 12-07-2024 End: 47-41-1749uwnkbta carbonate (Tums Ultra) 1000 MG chewable tablet Indications: Hypocalcemia Chew 1 tablet (1,000 mg) at bedtime 30 tablet 11 12/07/2024 12/07/2025 Activecalcium carbonate 600 mg / cholecalciferol 0.01 mg oral tablet (6 sources)Vitamin DStart: 88-85-4310Rdkpe: 69-75-8389xggu 2 tablets by mouth once dailycalcium carbonate-vitamin D3 (CALTRATE) 600-400 MG-UNIT TABS per tab Take 2 tablets by mouth daily 60 tablet 1 07/20/2021 Activecarvedilol 12.5 mg oral tablet (20 sources)alpha-Adrenergic Chemo, beta-Adrenergic BlockerStart: 07-17-2023 End: 61-04-5980srqq 1 tablet by mouth in the morningcarvedilol (Coreg) 12.5 MG tablet Indications: Primary hypertension Take 1 tablet (12.5 mg) by mouth in the morning and 1 tablet (12.5 mg) before bedtime. 60 tablet 11 11/22/2024 11/17/2025 ActiveStart: 06-29-2021 End: 80-91-0195usfr 1 dose by mouth once25 mg, Oral, ONCE, 1 dose, On Fri06/29/21 at 0200 Administer with food to minimize the risk of orthostatic hypotensionStart: 06-29-2021 End: 71-22-8708wuce 25 mg by mouth twice daily at mvbeajzy76 mg, Oral, 2 TIMES DAILY WITH MEALS, First dose on 07/15/21 at 0130, Until Discontinued Adminis ter with food to minimize the risk of orthostatic hypotensioncarvedilol (COREG) 25 MG tablet Take 12.5 mg by mouth 2 times daily (with meals) 0 Active chlordiazePOXIDE hydrochloride 5 mg oral capsule (3 sources)BenzodiazepineStart: 08-08-2021 End: 20-57-8947Zhdeo: 08-05-2021 End: 53-34-6266kzdd 10 mg by mouth three times daily10 mg, Oral, 3 TIMES DAILY, First dose on 08/05/21 at 1400, Until Discontinuedcholecalciferol 0.125 mg oral capsule (9 sources)Vitamin DStart: 03-05-2018 End: 91-67-3339ivmg 1 capsule by mouth once dailyCholecalciferol (VITAMIN D3) 5000 units CAPS Take 5,000 Units by mouth daily 0 03/05/2018 06/28/2021 Discontinued (LIST CLEANUP)Continuous Blood Gluc Sensor (FreeStyle [place] 14 Day Sensor) Misc (7 sources)Start: 55-22-3247Kknennnkun Blood Gluc Sensor (FreeStyle Juanpablo 14 Day Sensor) Misc Inject 2 Each under the skin every 14 days. 2 Each 3 03/16/2021 ActiveStart: 45-12-4953Ozmhijhngw Blood Gluc Sensor (FreeStyle Juanpablo 14 Day Sensor) Misc Inject 2 Each under the skin every 14 days. 2 Each 3 08/14/2020 Kqckce669 ml dexmedetomidine 0.004 mg/ml injection (2 sources)Central alpha-2 Adrenergic AgonistStart: 30-10-9768ssikejejnpt 20 mg/ml / timolol 5 mg/ml ophthalmic solution (20 sources)Carbonic Anhydrase Inhibitor, beta-Adrenergic BlockerStart: 79-11-1876dgud 1 drop(s) into the eye(s) twice dailydorzolamide-timolol 22.3-6.8 MG/ML Solution ophthalmic solution Place 1 drop in both eyes 2 times daily. 10 mL 0 01/15/2021 ActiveStart: 19-72-0188ttty 1 drop(s) into the eye(s) twice dailydorzolamide-timolol 22.3-6.8 MG/ML Solution ophthalmic solution Place 1 drop in both eyes 2 times daily. Generic. 90 day supply. 10 mL 3 09/04/2020 ActiveStart: 27-29-3905Wjfyt: 24-34-8267ojrd 1 drop(s) into the eye(s) twice dailydorzolamide-timolol (COSOPT) 22.3-6.8 MG/ML ophthalmic solution Place 1 drop into the right eye 2 times daily 0 08/08/2017 ActiveStart: 08-08-2017 End: 72-47-4362atpt 1 drop(s) into the eye(s) twice dailydorzolamide-timoloL (COSOPT) 22.3-6.8 mg/mL ophthalmic solution Apply 1 drop to eye 2 (two) times a day . 0 08/08/2017 Activedoxycycline monohydrate 100 mg oral capsule (20 sources)Tetracycline-class DrugStart: 22-23-3556yfzd 1 capsule by mouth twice dailydoxycycline (Monodox) 100 MG capsule Indications: Traumatic ulcer of left foot, unspecified ulcer stage (HCC) Take 1 capsule, by mouth, bid x 7 days 14 capsule 08/27/2024 ActiveStart: 05-58-1134qpqaaicxdaf (Vibramycin) 100 MG capsule 04/15/2024 ActiveStart: 07-09-2021 End: 36-55-7931Ayhvh: 05-01-2021 End: 67-56-9501ixnt 1 capsule by mouth twice dailydoxycycline hyclate (VIBRAMYCIN) 100 MG capsule Take 1 (one) capsule (100 mg total) by mouth 2 (two) times a day for 7 days . 14 capsule 0 05/01/2021 05/08/2021 ActiveStart: 12-06-2020 End: 13-03-2038grwb 1 capsule by mouth twice dailydoxycycline hyclate (VIBRAMYCIN) 100 MG capsule Take 1 (one) capsule (100 mg total) by mouth 2 (two) times a day for 7 days . 14 capsule 0 12/06/2020 12/13/2020 ExpiredStart: 05-29-2018 End: 88-13-1214pyrw 1 tablet by mouth twice dailydoxycycline hyclate (VIBRA- TABS) 100 MG tablet Take 1 (one) tablet (100 mg total) by mouth 2 (two) times a day for 7 days . 14 tablet 0 05/29/2018 06/05/2018 Active End: 07-71-6963SENVOUBBZKM PO Take by mouth. 01/05/2018 DiscontinuedDULoxetine 60 mg delayed release oral capsule (16 sources)Serotonin and Norepinephrine Reuptake InhibitorStart: 12-07-2024 End: 89-43-8502arer 1 capsule by mouth once dailyDULoxetine (Cymbalta) [address] capsule Indications: Current mild episode of major depressive disorder, unspecified whether recurrent Take 1 capsule (60 mg) by mouth Daily 30 capsule 11 12/07/2024 12/02/2025 Activeezetimibe 10 mg oral tablet (7 sources)Dietary Cholesterol Absorption InhibitorStart: 48-81-3080jteo 1 tablet by mouth once dailyezetimibe (Zetia) 10 MG tablet Take 1 tablet by mouth daily. 30 tablet 3 03/20/2021 ActiveStart: 83-89-9502gpjw 1 tablet by mouth once dailyezetimibe (Zetia) 10 MG tablet Take 1 tablet by mouth daily. 30 tablet 3 05/18/2020 Activefamotidine 20 mg oral tablet (6 sources)Histamine-2 Receptor AntagonistStart: 08-99-4003fowcxpqqcz (PEPCID) 20 MG tablet 1 tablet by Per NG tube route 2 times daily 60 tablet 3 08/10/2021 ActiveStart: 54-97-6628Qltdb: 31-16-971732 mg, Per NG tube, 2 TIMES DAILY, First dose on Nohemy 08/02/21 at 2100, Until Discontinued IV to PO change per P&T policy ferrous sulfate 325 mg delayed release oral tablet (6 sources)Start: 11-22-2024 End: 76-55-2498ebtg 1 tablet by mouth at mealtimeferrous sulfate (Fe Tabs) 325 (65 Fe) MG EC tablet Indications: Other iron deficiency anemia Take 1tablet (325 mg) by mouth in the morning. Take with meals. Do not crush, chew, or split. 30 tablet 11 11/22/2024 11/22/2025 Activefluocinonide 0.0005 mg/mg topical ointment (3 sources)CorticosteroidStart: 08-19-2023 End: 77-99-0520amtnyockwtya (Lidex) 0.05 % ointment Indications: Other atopic dermatitis Apply topically 2 (two) times a day as needed for rash 180 g 11 08/19/2023 08/18/2024 ActiveFreestyle Juanpablo 14 Day [place]ie (5 sources)Start: 01-05-2018 End: 93-35-6666Azbtzwyka Juanpablo 14 Day Sensor Misc (6 sources)Start: 51-59-0791Wkeky: 01-05-2018 End: 93-31-8191Ppmwz: 01-05-2018 End: 04-23-5443kkqqaIBVG 10 mg oral tablet (20 sources)SulfonylureaglipiZIDE (Glucotrol) 10 MG tablet 1 (one) time each day at the same time Active End: 20-07-9376cjzo 1 tablet by mouth twice daily before mealtimeglipiZIDE (GLUCOTROL) 5 MG tablet Take 5 mg by mouth 2 times daily (before meals) 0 06/28/2021 Discontinued (LIST CLEANUP)12 hr guaiFENesin 600 mg extended release oral tablet (4 sources)Start: 11-30-2024 End: 02-74-8650rdfe 2 tablets by mouth in the morning, then take 2 tablets by mouth every twelve hours at bedtimeguaiFENesin (Mucinex) 600 MG 12 hr tablet Indications: Cough, unspecified type Take 2 tablets (1,200 mg) by mouth in the morning and 2 tablets (1,200 mg) before bedtime. Do not crush, chew, or split. 120 tablet 11 12/23/2024 12/23/2025 Activehydrocortisone 10 mg/ml rectal cream (4 sources)Corticosteroidhydrocortisone 1 % cream Apply topically 2 times daily as needed Apply topically 2 times daily. Rash on arms 0 Activehydrocortisone 1 % cream Apply topically 2 times daily as needed Apply topically 2 times daily. Rash on arms 0 Wbgkpc193 ml immunoglobulin g, human 100 mg/ml injection [...] 100 unt/ml pen injector (20 sources)Insulin AnalogStart: 02-60-1596Otozecf Degludec (Tresiba FlexTouch) 100 UNIT/ML Solution Pen-injector injection Indications: Type 1 diabetes mellitus with diabetic neuropathy Inject 25 Units under the skin at bedtime. 900 mL 3 03/20/2021 ActiveStart: 06-23-2020 End: 62-20-9820Bllkipd Degludec (Tresiba FlexTouch) 100 UNIT/ML Solution Pen- injector injection 3 samples given--Lot [id number], exp 10/2021 3 Prefilled Pen/Syringe 0 06/23/2020 ActiveStart: 95-81-2603Ujzeyyq Degludec (Tresiba FlexTouch) 100 UNIT/ML Solution Pen-injector injection Indications: Type 1 diabetes mellitus with diabetic neuropathy Inject 25 Units under the skin at bedtime. 3 Prefilled Pen/Syringe 4 07/21/2019 ActiveStart: 05-25-2018 End: 01-81-3404Xgoeiwf Degludec (TRESIBA FLEXTOUCH) 100 UNIT/ML SOPN Inject 300 Units into the skin nightly 0 05/25/2018 06/28/2021 Discontinued (LIST CLEANUP) Start: 10-71-0765Nmkrnbl Degludec (TRESIBA FLEXTOUCH) 100 UNIT/ML Solution Pen- [...] 100 unt/ml pen injector (20 sources)Insulin AnalogStart: 48-03-3795Hsnzicxb KwikPen 100 UNIT/ML pen 08/15/2023 ActiveStart: 70-34-0066vvjvcu 10 [IU] by subcutaneous injection once daily10 Units, SubCUTAneous, NIGHTLY, First dose (after last modification) on Fri08/10/21 at 2100, UntilDiscontinuedStart: 08-08-2021 End: 38-57-6174uovxcw 5 [IU] by subcutaneous injection once daily5 Units, SubCUTAneous, NIGHTLY, First dose on Fri08/08/21 at 2100, Until Discontinued Start: 08-04-2021 End: 94-88-2029xbmvqf 20 [IU] by subcutaneous injection once daily20 Units, SubCUTAneous, NIGHTLY, First dose (after last modification) on Fri08/04/21 at 2100, UntilDiscontinuedStart: 08-03-2021 End: 90-56-6228qjuwcd 8 [IU] by subcutaneous injection once daily8 Units, SubCUTAneous, NIGHTLY, First dose on Fri08/03/21 at 2100, Until Discontinued Start: 06-30-2021 End: 59-76-5456bqfwaf 16 [IU] by subcutaneous injection once daily16 Units, SubCUTAneous, NIGHTLY, First dose on Fri07/21/21 at 2100, Until Discontinued Start: 06-29-2021 End: 84-25-5827lqbygh 10 [IU] by subcutaneous injection once daily10 [...] medicated patch (5 sources)Antiarrhythmic, Amide Local AnestheticStart: 62-26-6388biiqn 1 dose transdermal route every twelve hours1 patch, TransDERmal, Administer over 12 Hours, DAILY, First dose (after last modification) on Fri07/03/21 at 0030 Apply patch to left posterior neck. Patch may remain in place forup to 12 hours in any 24 hour period.Start: 77-50-6581lbmfzdyfd 5 % Patch patch Indications: CIDP (chronic inflammatory demyelinating polyneuropathy) Place 1 patch on skin every 24 hours. Max of 12 hours of application then remove. 30 patch 1 2475Hvoaef3 ml liraglutide 6 mg/ml pen injector (6 sources)GLP-1 Receptor AgonistStart: 47-20-0058JGOXFCQ 18 MG/3ML Solution Pen-injector injection INJECT 1.8 MG SUBCUTANEOUSLY ONCE DAILY 3 Syringe3 10/09/2017 Active1 ml LORazepam 2 mg/ml injection (6 sources)BenzodiazepineStart: 08-10-2021 End: 64-05-2307Xkssg: 07-28-2021 End: dose, Starting on 07/28/21 at 0203, Until 07/28/21 at 0206 Abner Helen A: cabinet overrideAndryHelen A: cabinet overrideStart: mg, IntraVENous, EVERY 4 HOURS PRN, Starting on 07/28/21 at 0201, Until Discontinued, AnxietyStart: 07-27-2021 End: mg, IntraVENous, ONCE, 1 dose, On Fri07/27/21 at 2045Start: 07-24-2021 End: .5 mg, IntraVENous, ONCE, 1 dose, On Fri07/24/21 at 1015Start: 07-04-2021 End: .5 mg, IntraVENous, ONCE, 1 dose, On Fri07/04/21 at 1845 meclizine hydrochloride 25 mg oral tablet (15 sources)AntiemeticStart: 38-77-5173otvrdkmab (Antivert) 25 MG tablet 04/15/2024 Active1 ml morphine sulfate 2 mg/ml cartridge (1 source)Opioid AgonistStart: 56-89-3220yjgp 1 mg by mouth every four hours [...] ActiveMultiple Vitamins- Minerals (multivitamin with minerals) tablet (3 sources)Start: 11-30-2024 End: 36-65-5073glbo 1 tablet by mouth once dailyMultiple Vitamins-Minerals (multivitamin with minerals) tablet Indications: Other iron deficiency anemia Take 1 tablet by mouth Daily 30 tablet 11 11/30/2024 11/30/2025 Active MULTIVITAMIN ORAL (20 sources)MULTIVITAMIN ORAL daily. 0 ActiveMULTIVITAMIN ORAL daily. Active mupirocin 0.02 mg/mg topical ointment (20 sources)RNA Synthetase Inhibitor AntibacterialStart: 05-29-2018 End: 53-13-3969uysegjdwb (BACTROBAN) 2 % ointment Apply topically 3 (three) times a day for 7 days . 30 g 0 05/01/2021 05/08/2021 Activenafcillin 2000 mg injection (1 source)Penicillin-class AntibacterialStart: 08-10-2021 End: 54-73-5560srbaowmlf infusion (1 source)Start: 07-09-2021 End: 38-18-7354cuzvaapgw infusion Infuse 2,000 mg intravenously every 4 hours Till 08/20/21 Then stop iv AB and pullthe line Cbc diff and creat q MWF while on this AB Compound per protocol 504 g 0 07/09/2021 08/20/2021 Activenaproxen 500 mg oral tablet (6 sources)Nonsteroidal Anti-inflammatory DrugStart: 26-51-1536eokz 1 tablet by mouth three times daily at mealtimenaproxen 500 MG Tab tablet Take 1 tablet by mouth 3 times daily with meals. 20 tablet 0 12/15/2017 Activenetarsudil 0.2 mg/ml ophthalmic solution (3 sources)Rho Kinase InhibitorStart: 82-17-0082ivwu 1 drop(s) into the eye(s) at bedtimeNetarsudil Dimesylate (Rhopressa) 0.02 % Solution Place 1 drop in both eyes at bedtime. 5 mL 0 02/15/2021 ActiveStart: 85-66-5085Ivqtpsedmd Dimesylate (Rhopressa) 0.02 % Solution Samples of this drug were given to the patient. 5mL 0 10/11/2020 ActiveStart: 11-21-2017 End: 24-88-1988lavc 1 drop(s) into the eye(s) at bedtimeNetarsudil Dimesylate (RHOPRESSA) 0.02 % Solution Place 1 drop in both eyes at bedtime. 1 Bottle 0 1 01/07/2018 Discontinuednetarsudil mesylate 0.285 mg/ml ophthalmic solution (4 sources)Start: 43-88-8781mubl 1 drop(s) into the eye(s) at bedtimeNetarsudil Dimesylate (RHOPRESSA) 0.02 % Solution Place 1 drop in both eyes at bedtime. 1 Bottle 0 11/21/2017 ActiveNONFORMULARY (4 sources)NONFORMULARY Tube feedings per ng tube at 65/hr 0 Activenortriptyline 25 mg oral capsule (6 sources)Tricyclic AntidepressantStart: 40-98-0293yufwcncyhwybt 25 MG Cap capsule Week 1 - 1 tab QHS. Week 2 - 2 tabs QHS. Week 3 onwards - 3 tabs QHS 90 capsule 5 12/24/2017 Activeomeprazole 40 mg delayed release oral capsule (16 sources)Proton Pump InhibitorStart: 12-23-2024 End: 37-52-1532ifre 1 capsule by mouth before mealtimeomeprazole (PriLOSEC) [address] capsule Indications: Gastroesophageal reflux disease without esophagitis Take 1 capsule (40 mg) by mouth in the morning. Take before meals. Do not crush or chew. 30 capsule 12/23/2024 01/22/2025 ActiveStart: 08-08-2023 End: 51-87-7671zvzxiybiuu (PriLOSEC) [address] capsule 08/08/2023 12/13/2024 Discontinued (Reorder)oxyCODONE hydrochloride 5 mg oral tablet (2 sources)Opioid AgonistStart: 08-01-2021 End: 02-66-8177cydqeftvwtef 30 mg oral tablet (6 sources)Peroxisome Proliferator Receptor alpha Agonist, Peroxisome Proliferator Receptor gamma Agonist, ThiazolidinedioneStart: 16-98-1298sxoe 1 tablet by mouth once dailypioglitazone 30 MG Tab tablet Indications: Type 2 diabetes mellitus with diabetic polyneuropathy, without long-term current use of insulin Take 1 tablet by mouth daily. 90 tablet 1 07/21/2017 Activepotassium chloride 20 meq extended release oral tablet (20 sources)Start: 11-23-2024 End: 35-05-9565hxjt 1 tablet by mouth once dailypotassium chloride CR (K-Tab) 20 MEQ ER tablet Indications: Hypokalemia Take 1 tablet (20 mEq) by mouth Daily Do not crush, chew, or split. 360 tablet 11/23/2024 11/23/2025 ActiveStart: 08-05-2021 End: mEq, Oral, ONCE, 1 dose, On Fri08/05/21 [...] Fri07/26/21at 0800, at 50 mL/hrStart: 07-14-2021 End: 54-97-5937guywiddxb chloride 10 mEq/100 mL IVPB (Peripheral Line)Start: 07-08-2021 End: 63-77-565121 mEq, IntraVENous, EVERY HOUR, 4 doses, First dose on Fri07/08/21 at 0800, Last dose on Fri07/08/21 at 1100, at 100 mL/hrStart: 07-06-2021 End: 07-44-276620 mEq, IntraVENous, EVERY HOUR, 4 doses, First [...] 25 mg oral tablet (7 sources)Atypical AntipsychoticStart: 07-96-5129llvy 1 tablet by mouth once dailyQUEtiapine (SEROQUEL) 25 MG tablet Take 1 tablet by mouth nightly 60 tablet 3 08/10/2021 ActiveStart: 08-07-2021 End: 99-75-5304ueuf 50 mg by mouth once daily50 mg, Oral, NIGHTLY, First dose (after last modification) on Fri08/07/21 at 2100, Until Hqlbhgohrkdi4434 ml sodium chloride 9 mg/ml injection (20 sources)Start: 22-04-3664ObqhpPHAmwu, at 10 mL/hr, CONTINUOUS, Starting on Fri07/29/21 at 0830Start: 07-26-2021 End: mL, IntraVENous, PRN, Starting on Fri07/26/21 at 1744, Until Nohemy 08/02/21 at 1359, [...] Central Line = 20 mL/lumenStart: 07-24-2021 End: 25-28-9697XbqzoEQHyif, at 10 mL/hr, CONTINUOUS, Starting on Fri07/25/21 at 2145Start: 07-18-2021 End: ,000 mL (16.5 mL/kg), IntraVENous, at 1,935.5 mL/hr, Administer over 31 Minutes, ONCE, On Fri07/18/21 at 1300, For 1 doseStart: 07-14-2021 End: 65-22-0296rmva 1 dose intravenously twice daily5-40 mL, IntraVENous, [...] Central Line = 20 mL/lumenStart: 07-14-2021 End: 42-63-1336UdkggPPUnvl, at 75 mL/hr, CONTINUOUS, Starting on 07/14/21 [...] or less into rate field of order.Start: 75-53-7115kgbj 5- 40 mL intravenously once as needed5-40 [...] Midline or Central Line = 20 mL/lumenStart: 20-89-1948BwaggEDXdjz, at 5-250 mL/hr, PRN, if patient receiving piggyback infusions and maintenance fluids are not ordered OR KVO fluids to protect IV site / prevent frequent line interruptions/ long duration, Starting on 07/06/21 at 2217 For piggyback infusion, administer at [...] of order.Start: mL, IntraVENous, PRN, Starting on Nohemy 07/05/21 at 1732, Until Discontinued, Line Care For [...] Central Line = 20 mL/lumenStart: 06-29-2021 End: 73-50-6895ZhjsfHGPhui, at 100 mL/hr, CONTINUOUS, Starting on Fri06/29/21 at 1400Start: 21-66-0198nejk 1 dose intravenously twice daily5-40 mL, IntraVENous, [...] Midline or Central Line = 20 mL/lumenStart: 69-35-5879jirm 5-40 mL intravenously once as needed5-40 mL, IntraVENous, PRN, Starting on Fri06/28/21 at [...] 08/15/21 0 Activesucralfate 100 mg/ml oral suspension (15 sources)Aluminum ComplexStart: 47-10-2017udikbvkxmu (Carafate) 1 GM/10ML suspension 08/15/2023 Activesulfamethoxazole 800 mg / trimethoprim 160 mg oral tablet (3 sources)Dihydrofolate Reductase Inhibitor Antibacterial, Sulfonamide AntimicrobialStart: 09-14-2020 End: 70-91-7553zjeg 1 tablet by mouth twice dailysulfamethoxazole-trimethoprim 800-160 MG per tablet TAKE 1 TABLET BY MOUTH TWICE DAILY FOR 10 DAYS 0 09/14/2020 ActiveTegaderm Contact Layer 3 X4 Pads (1 source)Start: 62-39-5666Rpbty Pads & Dressings (TEGADERM CONTACT LAYER) 3 X4 Pads To be used with Juanpablo Sensors every 14 days. 2 Each 4 01/19/2018 Active thioctic acid 300 mg oral tablet (15 sources)Start: 12-24-2017 End: 44-61-2662npzi 1 tablet by mouth twice dailyAlpha-Lipoic Acid 300 MG TABS Take 300 mg by mouth 2 times daily 0 12/24/2017 06/28/2021 Discontinued (LIST CLEANUP)levothyroxine sodium 0.112 mg oral capsule (20 sources)l-ThyroxineStart: 12-23-2024 End: 71-47-9121vajw 1 capsule by mouth before mealtimelevothyroxine (Tirosint) 112 MCG capsule Indications: Acquired hypothyroidism Take 1 capsule (112 mcg) by mouth in the morning. Take before meals. 30 capsule 11 12/23/2024 12/18/2025 ActiveStart: 62-20-7400iiuu 1 tablet by mouth once dailylevothyroxine (SYNTHROID) 100 MCG tablet Take 1 tablet by mouth Daily 30 tablet 3 07/11/2021 ActiveStart: 07-01-2021 End: 42-31-9211ziwo 100 ug by mouth once iuwzj012 mcg, Oral, DAILY, First dose on Fri07/09/21 at 0900, Until Discontinued Tube feeding (TF) interaction, obtain physician order to manage, recommend holding TF for 30 minutes before and after dose.Start: 46-78-6286gvng 1 tablet by mouth once dailylevothyroxine 50 MCG tablet Take 1 tablet by mouth daily. 90 tablet 2 03/20/2021 ActiveStart: 10-16-2017 End: 91-10-9478bjea 1 tablet by mouth every other daylevothyroxine 112 MCG Tab tablet Indications: Acquired hypothyroidism Take 1 tablet by mouth every other day. 15 tablet 4 10/16/2017 ActiveStart: 30-87-3418umif 1 tablet by mouth every other daylevothyroxine 125 MCG Tab tablet Indications: Acquired hypothyroidism Take 1 tablet by mouth every other day. 15 tablet 4 10/16/2017 Active End: 60-32-7957wzlv 1 capsule by mouth once dailylevothyroxine (Tirosint) 112 MCG capsule Take 1 capsule every day by oral route. 12/13/2024 Discontinued (Reorder)take 1 tablet by mouth once dailylevothyroxine (SYNTHROID) 112 MCG tablet Take 112 mcg by mouth Daily 0 Activetopiramate 25 mg oral tablet (6 sources)Start: 52-18-0527fdsq 1 tablet by mouth twice dailytopiramate 25 MG Tab tablet Take 1 tablet by mouth 2 times daily. 120 tablet 5 12/24/2017 Active traMADol hydrochloride 50 mg oral tablet (15 sources)Opioid AgonistStart: 32-64-6788gjiMELtq (Ultram) 50 MG tablet 11/04/2023 Activetriamcinolone acetonide 1 mg/ml topical cream (11 sources)CorticosteroidStart: 56-41-6041ibwatseakpdpb (Kenalog) 0.1 % cream Indications: Other atopic dermatitis Apply (1g) to the affectedareas (feet), up to twice a day when flared, do not use one the face, groin, or underarms, 30 day supply 80 g 11 08/27/2024 Dyzveo13 hr divalproex sodium 500 mg extended release oral tablet (20 sources)Mood Stabilizer, Anti-epileptic AgentStart: 05-01-9762gxbzckebxw (Depakote ER) 500 MG 24 hr tablet 08/06/2023 ActiveStart: 07-03-2021 End: 77-25-1033tsyo 250 mg by mouth twice akahf890 mg, Oral, 2 times daily, First dose on Fri07/16/21 at 1300, Until DiscontinuedVITAMIN B COMPLEX-C CAPS (2 sources)Start: 03-05-2018 End: 82-54-7663tqva 1 capsule by mouth once dailyVITAMIN B COMPLEX-C CAPS Take 1 capsule by mouth daily 0 03/05/2018 06/28/2021 Discontinued (LIST CLEANUP) Start: 51-13-9832pvka 1 capsule by mouth once dailyVITAMIN B COMPLEX-C CAPS Take 1 capsule by mouth daily 0 03/05/2018 Activezonisamide 100 mg oral capsule (20 sources)Anti-epileptic Agent End: 56-20-1926npbi 1 capsule by mouth three times dailyzonisamide (Zonegran) 100 MG capsule Take 1 capsule 3 times a day by oral route. Active Completed/Discontinued Medications MedicationDrug Class(es)DatesSig (Normalized)Sig (Original)acetaminophen 325 mg oral tablet (4 sources)Start: 42-89-7075hnte 650 mg by mouth every six hours, then take 4000 mg by mouth every twenty-four mg, Oral, EVERY 6 HOURS, First dose on Fri07/06/21 at 2245, Until Discontinued Maximum dose of acetaminophen is 4000 mg from all sources in 24 hours.Start: 05-11-2021 End: 77-18-4954dbrxpeepvqoxz (TYLENOL) tablet 650 mgStart: 10-03-2020 End: 05-13-4325nhbkanbftaevi (TYLENOL) tablet 650 mgStart: 09-21-2020 End: 01-87-9731zgsvsublkakcc (TYLENOL) tablet 650 mgacetaminophen 325 mg / butalbital 50 mg / caffeine 40 mg oral tablet (1 source)Barbiturate, Central Nervous System Stimulant, MethylxanthineStart: 06-30-2021 End: 70-65-2869eelc 1 tablet by mouth every four hours as needed for headache1 tablet, Oral, EVERY 4 HOURS PRN, Starting on Fri06/30/21 at 0918, Until Fri07/07/21 at 1818, Headaches Maximum dose of acetaminophen is 4000 mg from all sources in 24 hours.acetaminophen 325 mg / HYDROcodone bitartrate 5 mg oral tablet (20 sources)Opioid AgonistStart: 07-14-2021 End: 24-00-9210zhhw 1 tablet by mouth every four hours as needed for pain1 tablet, Oral, EVERY 4 HOURS PRN, Starting on Fri07/14/21 at 1705, Until Fri07/24/21 at 1357, Pain Moderate (4-6), Pain Severe (7-10) Maximum dose of acetaminophen is 4000 mg from all sources in 24 hours.Start: 07-14-2021 End: 11-61-9388NWBWVzchexw-acetaminophen (NORCO) 5-325 MG per tablet 1 tablet azithromycin (ZITHROMAX) 500 mg in D5W 250ml Vial Mate (1 source)Start: 07-13-2021 End: 04-30-9089vkcttlpaefiz (ZITHROMAX) 500 mg in D5W 250ml Vial Matecalcium chloride 0.0014 meq/ml / potassium chloride 0.004 meq/ml / sodium chloride 0.103 meq/ml / sodium lactate 0.028 meq/ml injectable solution (2 sources)Start: 07-25-2021 End: 65-23-5498939 mL, IntraVENous, at 500 mL/hr, Administer over 1 Hours, ONCE, On Fri07/25/21 at 0445, For 1 lvty377 ml calcium gluconate 20 mg/ml injection (2 sources)Start: 08-04-2021 End: ,000 mg, IntraVENous, at 100 mL/hr, Administer over 60 Minutes, ONCE, On Fri08/04/21 at 0800, For 1 doseStart: 07-29-2021 End: ,000 mg, IntraVENous, at 100 mL/hr, Administer over 60 Minutes, ONCE, On Fri07/29/21 at 0630, For 1 dosecilostazol 100 mg oral tablet (1 source)Phosphodiesterase 3 Inhibitor End: 05-33-3398xeam 1 tablet by mouth twice dailycilostazol (PLETAL) 100 MG tablet Take 100 mg by mouth 2 (two) times a day. 04/07/2017 Discontinued Ciprofloxacin (1 source)Quinolone Antimicrobial End: 44-15-8008Atucxqmihtpqb (CIPRO PO) Take by mouth. 01/05/2018 Discontinued clindamycin 300 mg oral capsule (3 sources)Lincosamide Antibacterial End: 29-33-4678vpcc 1 capsule by mouth three times dailyclindamycin 300 MG capsule TAKE 1 CAPSULE BY MOUTH THREE TIMES A DAY 0 09/26/2020 Discontinued dexamethasone 6 mg oral tablet (2 sources)CorticosteroidStart: 07-14-2021 End: mg, Oral, DAILY, 10 doses, First dose on Fri07/14/21 at 1700, Last dose on Fri07/23/21 at 0900Start: 06-28-2021 End: mg, IntraVENous, EVERY 6 HOURS, First dose on Nohemy 06/28/21 at 1615, For 4 days Please give steroid 15 mins before antibioticsdextromethorphan hydrobromide 2 mg/ml / guaiFENesin 20 mg/ml oral suspension (1 source)Uncompetitive H-iwagqw-M-aspartate Receptor Antagonist, Sigma-1 AgonistStart: 07-14-2021 End: 36-65-2403xevs 5 mL by mouth every four hours as needed for coughDosing in mg is based on dextromethorphan component. 5 mL, Oral, EVERY 4 HOURS PRN, Starting on Fri07/14/21 at 1639, Until Fri08/07/21 at 0810, CoughdiphenhydrAMINE hydrochloride 25 mg oral tablet (4 sources)Histamine-1 Receptor AntagonistStart: 07-16-2021 End: 63-76-7936ddxv 25 mg by mouth every six hours as uytipi95 mg, Oral, EVERY 6 HOURS PRN, Starting on Fri07/16/21 at 1302, Until Fri07/24/21 at 1357, Itching, reaction to abxStart: 05-11-2021 End: 28-26-4352vtncuxvepvPIRQJ (BENADRYL) tablet 25 mgStart: 10-03-2020 End: 67-25-2826yhfnsoglkbMGVOW (BENADRYL) tablet 25 mgStart: 09-21-2020 End: 49-33-8378cngbudsgtjONXDS (BENADRYL) tablet 25 mgdocusate sodium 50 mg / sennosides, [facility] 8.6 mg oral tablet (1 source)Start: 72-63-4777cpyi 1 tablet by mouth twice daily1 tablet, [...] at 50% of previous dose.Start: 07-24-2021 End: 67-90-6123jwlr 0.5-4 mL intravenously every qgkr91-557 mcg/hr (0.5-4 mL/hr), IntraVENous, CONTINUOUS, Starting on Fri07/24/21 at 1130, Until Nohemy 08/02 at 1138 [...] Infection Administer over 5 mins.Start: 07-09-2021 End: 70-07-4884Rgslp: 06-29-2021 End: ,250 mg (19 mg/kg), IntraVENous, at 166.7 mL/hr, Administer over 90 Minutes, ONCE, On Fri06/29/21 at 1000, For 1 dose0.4 ml enoxaparin sodium 100 mg/ml prefilled syringe (2 sources)Low Molecular Weight HeparinStart: 52-97-3589yjjqav 40 mg by subcutaneous injection once daily40 mg, SubCUTAneous, DAILY, First dose (after last modification) on Fri07/14/21 at 1745, Until Discontinued Indication of Use: Prophylaxis-DVT/PEStart: 74-45-0558eocdod 40 mg by subcutaneous injection once daily40 mg, SubCUTAneous, DAILY, First dose on Fri06/29/21 at 0900, Until Discontinued Indication of Use: Prophylaxis-DVT/PEfamotidine (PEPCID) 20 mg in sodium chloride (PF) 10 mL injection (1 source)Start: 06-28-2021 End: 95-35-9863oepxkpebjs (PEPCID) 20 mg in sodium chloride (PF) 10 mL injection 2 ml fentaNYL 0.05 mg/ml injection (4 sources)Opioid AgonistStart: 08-07-2021 End: 70-36-3041kssc 50 ug by mouth every hour as [...] each other unless specifically ordered.Start: 07-25-2021 End: 24-62-2065icmm 25 ug by mouth every hour as [...] each other unless specifically ordered.Start: 07-24-2021 End: 26-43-8978ixwh 1 dose by mouth once50 mcg, IntraVENous, ONCE, 1 dose, On Fri07/24/21 at 1230 If oral and IV narcotics ordered, use oralfirst and only use IV if oral is ineffective or cannot take oral. Do Not give oral and IV within 1 hour of each other unless specifically ordered.Start: 07-01-2021 End: 47-88-2695spxb 1 dose by mouth once25 mcg, IntraVENous, ONCE, 1 dose, On Fri07/01/21 at 1915 If oral and IV narcotics ordered, use oral first and only use IV if oral is ineffective or cannot take oral. Do Not give oral and IV within 1 hour of each other unless specifically ordered.fluconazole 200 mg oral tablet (4 sources)Azole AntifungalStart: 07-10-2021 End: 35-56-1780Dduis: 07-02-2021 End: 01-51-0367qacdxjkbwq 0.1 mg/ml injectable solution (1 source)Benzodiazepine AntagonistStart: 07-24-2021 End: dose, Starting on Fri07/24/21 at 1050, Until Fri07/24/21 at 2259 Jess Ventura: cabinet override Jess Ventura: cabinet overrideFrjuareztyhellen Juanpablo [place] [employer]ie (5 sources)Start: 04-21-2017 End: 35-08-7699Pkfvqalybz Blood Gluc Hearing Aid Mechanic (FREESTYLE JUANPABLO READER) Device Indications: Type 2 diabetes mellitus with diabetic polyneuropathy, without long-term current use of insulin Apply 1 Device topically Asdirected. Use to download subcutaneous glucose monitor data at least four times daily 1 Device 3 04/21/2017 01/07/2018 DiscontinuedStart: 51-37-2613Wpdsjgvcjc Blood Gluc Hearing Aid Mechanic (FREESTYLE JUANPABLO READER) Device Indications: Type 2 diabetes mellitus with diabetic polyneuropathy, without long-term current use of insulin Apply 1 Device topically Asdirected. Use to download subcutaneous glucose monitor data at least four times daily 1 Device 3 04/21/2017 ActiveFreestyle Juanpablo Sensor System Misc (5 sources)Start: 04-21-2017 End: 34-01-7762Zoijkgjsgj Blood Gluc Sensor (FREESTYLE JUANPABLO SENSOR SYSTEM) [facility] [place]ications: Type 2 diabetes mellitus with diabetic polyneuropathy, without long-term current use of insulin Inject 1 Each under the skin every [address] one sensor subcutaneous every 10 day 3 Each 6 04/21/2017 01/07/2018 DiscontinuedStart: 72-44-3208Bfcaavqfgu Blood Gluc Sensor (FREESTYLE JUANPABLO SENSOR SYSTEM) [facility] [place] Indications: Type 2 diabetes mellitus with diabetic polyneuropathy, without long-term current use of insulin Inject 1 Each under the skin every [address] one sensor subcutaneous every 10 day 3 Each 6 04/21/2017 Activegabapentin 100 mg oral capsule (5 sources)Anti-epileptic AgentStart: 07-10-2021 End: 79-61-6436Amqdu: 07-04-2021 End: 00-13-4794kvkw 200 mg by mouth three times mg, Oral, 3 TIMES DAILY, First dose on Nohemy 07/19/21 at 0900, Until Discontinuedglucagon (rdna) 1 mg injection (2 sources)Antihypoglycemic AgentStart: 67-99-0254kgsc 1 mL intravenously every hour1 mg, IntraMUSCular, PRN, Starting on 07/14/21 at 1639, Until Discontinued, Low blood sugar, Blood glucose less than 70 mg/dL and patient NOT ALERT or NPO and does not have IV access. After administration, attempt intravenous access and start D5W at 100 mL/hr. Repeat blood glucose in 15 minutes x2 and notify provider.Start: 19-88-7528rfyi 1 mL intravenously every hour1 mg, IntraMUSCular, [...] 100 mg/ml injection (7 sources)Start: 07-25-2021 End: 99-63-6967QbmlyHFOxjd, at 250 mL/hr, ONCE, On Fri07/25/21 at 0715, For 1 doseStart: 07-14-2021 End: 82-67-2771SyfzlTUCcmx, at 50 mL/hr, CONTINUOUS, Starting on Fri07/25/21 at 1830Start: 24-53-2246975 mL/hr, IntraVENous, PRN, Low blood sugar, Starting on Nohemy 06/28/21 at 1617 Start infusion following administration of dextrose 50% or glucagon.Start: 05-11-2021 End: 96-00-0932fzlgmplr 5% IV solution 250 mLStart: 10-03-2020 End: 48-87-3210agublcnk 5% IV solution 250 mLStart: 09-21-2020 End: 12-41-2107bzbrcuvm 5% IV solution 250 mLhydrALAZINE hydrochloride 10 mg oral tablet (3 sources)Arteriolar VasodilatorStart: 07-23-2021 End: 25-36-7616lamv 1 dose by mouth once10 mg, Oral, ONCE, 1 dose, On Fri07/23/21 at 0645Start: 06-29-2021 End: mg, IntraVENous, ONCE, 1 dose, On Fri06/29/21 at 2245 Do not give if HR is above 100Start: 82-64-435284 mg, IntraVENous, EVERY 4 HOURS PRN, Starting on Fri06/29/21 at 2219, Until Discontinued, High Blood Pressure, SBP > 160 Hold for HR >1001 ml HYDROmorphone hydrochloride 1 mg/ml cartridge (2 sources)Opioid AgonistStart: 07-06-2021 End: dose, Starting on Fri07/06/21 at 2140, Until Fri07/06/21 at 2141 Ashwini Cleary: vita override Ashwini Cleary: cabinet overrideimmune globulin (human) (GAMUNEX-C) infusion 15 g (3 sources)Start: 05-11-2021 End: 85-94-1914rykstc globulin (human) (GAMUNEX-C) infusion 15 gStart: 10-03-2020 End: 39-19-1379orfmic globulin (human) (GAMUNEX-C) infusion 15 gStart: 09-21-2020 End: 09-95-8672uiveme globulin (human) (GAMUNEX-C) infusion 15 ginsulin lispro [...] -3 Units, SubCUTAneous, NIGHTLY, First dose on Fri07/28/21 at 2100, Until Discontinued If continuous tube [...] -6 Units, SubCUTAneous, NIGHTLY, First dose on 07/22/21 at 2100, Until [...] TIMES DAILY WITH MEALS, First dose on [place] 07/22/21 at 0845, Until Discontinued Medium Dose [...] sp; 5 Units Above 400 6 UnitsStart: -12 Units, SubCUTAneous, 3 TIMES DAILY WITH MEALS, First dose on Nohemy 06/28/21 at 1700, Until Discontinued Medium Dose Corrective Algorithm Glucose: Dose: If <139 &amp ;nbsp; No Insulin 140-199 2 Units 200-249 4 Units 250-299 6 Units 300-349 8 Units 350-400 10 Units Above 400 12 UnitsStart: 06-23-2020 End: 03-69-6104Doyxrlq Lispro, 1 Unit Dial, (HumaLOG KwikPen) 100 UNIT/ML Solution Pen-injector Sample given Lot-[id number], 3 mL 0 09/13/2020 09/28/2020 Discontinued (Therapy completed)Start: 03-50-0451Wqtipab Lispro, 1 Unit Dial, 100 UNIT/ML Solution Pen-injector Indications: Type 1 diabetes mellitus with diabetic neuropathy Use less than 30 units daily with sliding scale. 15 mL 3 03/20/2021 ActiveStart: 84-07-8774fpazjys lispro (HUMALOG KWIKPEN) 100 UNIT/ML Solution Pen-injector Use less than 30 units daily with sliding scale. 5 Prefilled Pen/Syringe 3 01/19/2018 Activeinsulin lispro (HUMALOG KWIKPEN) 100 UNIT/ML pen Inject 5 Units into the skin 3 times daily (beforemeals) Sliding scale coverage 0 Activeiopamidol (ISOVUE-370) 76 % injection 75 mL (1 source)Start: 06-28-2021 End: 15-54-9491sbpudhmoc (ISOVUE-370) 76 % injection 75 mL1 ml ketorolac tromethamine 30 mg/ml cartridge (4 sources)Nonsteroidal Anti-inflammatory Drug, Cyclooxygenase InhibitorStart: 06-28-2021 End: 64-20-3617kkwc 1 dose intravenously once daily as neededKetorolac [...] injectable solution (3 sources)beta-Adrenergic BlockerStart: 07-27-2021 End: mg, IntraVENous, ONCE, 1 dose, On Fri07/27/21 at 1930Start: 07-27-2021 End: dose, Starting on Fri07/27/21 at 1906, Until Fri07/27/21 at 1907 Helen Levine A: miguelinet overrideAndHelen carrington A: miguelinemalvin overrideStart: mg, IntraVENous, EVERY 4 HOURS PRN, Starting on Nohemy 06/28/21 at 1615, Until Discontinued, High Blood Pressure, for sbp >160 Hold for HR <60, or SBP <120lactobacillus rhamnosus gg [id number] unt oral capsule (6 sources)Start: 07-11-2021 End: 46-04-9966Nyyho: 07-11-2021 End: 02-39-8349lvwy 1 capsule by mouth once daily at [...] First dose on Fri06/28/21 at 2100, Until DiscontinuedStart: 83-92-4313Qlcqy: 07-56-6111bgkx 1 drop(s) into the eye(s) once dailylatanoprost (XALATAN) 0.005 % ophthalmic solution Place 1 drop into both eyes nightly 0 03/05/2017 ActiveStart: 13-66-4624civp 1 drop(s) into the eye(s) at bedtime latanoprost (XALATAN) 0.005 % ophthalmic solution Administer 1 drop to both eyes at bedtime. 6 03/05/2017 Jmjrej024 ml levoFLOXacin 5 mg/ml injection (1 source)Quinolone AntimicrobialStart: 07-25-2021 End: 78-33-5466565 mg, IntraVENous, EVERY 24 HOURS, 7 doses, First dose on Fri07/25/21 at 1130, Last dose on Fri07/31/21 at 1130 Antimicrobial Indications: Pneumonia (HAP) HAP duration of therapy: 7 days Suspected Organism(s): gram neg rodslisinopril 10 mg oral tablet (18 sources)Angiotensin Converting Enzyme InhibitorStart: 07-03-2021 End: 86-94-6666jfwq 10 mg by mouth once daily10 mg, Oral, DAILY, First dose (after last modification) on Fri07/03/21 at 0900, Until DiscontinuedStart: 06-29-2021 End: 61-35-3909caal 10 mg by mouth once daily10 mg, Oral, DAILY, First dose on Fri06/29/21 at 0900, Until Discontinuedtake 1 tablet by mouth once daily lisinopril 5 MG Tab tablet take 5 mg by mouth daily. Activeloperamide hydrochloride 0.133 mg/ml oral suspension (2 sources)Opioid AgonistStart: 97-50-0343ltxd 2 mg by mouth four times daily as needed2 mg, Oral, 4 TIMES DAILY PRN, Starting on Fri08/04/21 at 0758, Until Discontinued, Diarrhea After each loose stool.Start: 25-54-7067xqkh 2 mg by mouth four times daily as needed2 mg, Oral, 4 TIMES DAILY PRN, Starting on Fri07/03/21 at 0329, Until Discontinued, Diarrhea After each loose stool.magnesium hydroxide 80 mg/ml oral suspension (2 sources)Start: 07-29-2021 End: mL, Per NG tube, DAILY PRN, Starting on Fri08/04/21 at 0800, Until Discontinued, Rncjsgrbcuga83 ml magnesium sulfate 40 mg/ml injection (10 [...] 1,000 mg (milligrams) per hour.Start: 07-13-2021 End: 03-55-3730pfuw 1000 mg intravenously every hour as needed1,000 [...] mL/hr, Administer over 1 Hours, ONCE, On [place] 07/08/21 at 0900, For 1 dose Recommended infusion rate not to exceed 1,000 mg (milligrams) per hour.Start: 07-05-2021 End: ,000 mg, IntraVENous, at 100 mL/hr, Administer over 1 Hours, ONCE, On [facility] 07/05/21 at 1115, For 1 dose Recommended infusion rate not to exceed 1,000 mg (milligrams) per hour.Start: 07-01-2021 End: ,000 mg, IntraVENous, at 25 mL/hr, Administer over 2 Hours, ONCE, On [place] 07/01/21 at 1130, For 1 dose 2 grams totalStart: 06-28-2021 End: ,000 mg, IntraVENous, at 25 mL/hr, Administer over 2 Hours, ONCE, On [facility] 06/28/21 at 1445, For 1 dose Recommended infusion rate not to exceed 1,000 mg (milligrams) per hour.metFORMIN hydrochloride 1000 mg oral tablet (7 sources)Biguanide End: 94-97-5549bmoKCVXOP (GLUCOPHAGE) 1000 MG tablet 2 (two) times a day. 0 12/20/2019 Discontinued (Error)methylPREDNISolone 40 mg injection (2 sources)CorticosteroidStart: 07-27-2021 End: mg, IntraVENous, 2 times daily, First dose on Fri07/27/21 at 1200 For post extubation stridorStart: 07-26-2021 End: 51-29-3544558 mg, IntraVENous, ONCE, On [place] 07/26/21 at 1200, For 1 dose2 ml metoclopramide 5 mg/ml prefilled syringe (5 sources)Dopamine-2 Receptor AntagonistStart: 08-04-2021 End: mg, IntraVENous, EVERY 6 HOURS, First dose on Fri08/04/21 at 1600, Until Discontinuedtake 5 mg by [...] for HR< 70, S bp< 130 End: 91-63-3006xgrr 1 tablet by mouth twice dailymetoprolol (LOPRESSOR) 100 MG tablet Take 100 mg by mouth 2 times daily 0 06/28/2021 Discontinued (LIST CLEANUP) End: 68-20-8663pvhzqzghir tartrate (LOPRESSOR) 50 MG tablet 2 (two) [...] prefilled syringe (1 source)Opioid AntagonistStart: 06-28-2021 End: 65-46-4622hmryhnka (NARCAN) injection 1 mgStart: 06-28-2021 End: 51-11-3093rbfwxkld (NARCAN) injection 1 mg2 ml ondansetron 2 mg/ml injection (3 sources)Serotonin-3 Receptor AntagonistStart: 06-28-2021 End: 67-23-0973brdufnqhxyx (ZOFRAN) injection 4 mgStart: 06-28-2021 End: 97-53-0503xphhvvvxsdv (ZOFRAN) 4 MG/2ML injectionpiperacillin-tazobactam (ZOSYN) 3,375 mg in dextrose 5 % 50 mL IVPB (mini-bag) (3 sources)Start: 07-14-2021 End: 21-50-3165kddznvjbaoxz-tazobactam (ZOSYN) 3,375 mg in dextrose 5 % 50 mL IVPB (mini-bag)Start: 07-14-2021 End: 29-60-4542nwlkwgbbxglz-tazobactam (ZOSYN) 3,375 mg in dextrose 5 % 50 mL IVPB (mini-bag)Start: 07-13-2021 End: 66-57-7359zvmtminnfmea-tazobactam (ZOSYN) 3,375 mg in dextrose 5 % [...] at bedtime 120 tablet 0 07/19/2021 ActiveStart: 33-54-7139Vxqhb: mEq, Oral, 4 TIMES DAILY, 8 doses, First dose on Fri07/17/21 at 1700, Last dose on Fri07/19/21 [id number] Do not chew or crush. Dissolve flavored [...] if GI adverse effects occur.Start: 07-13-2021 End: 69-08-2918glihxlcra bicarb-citric acid (EFFER-K) effervescent tablet 40 mEq [...] 5 mg/ml injection (1 source)PhenothiazineStart: 06-28-2021 End: 79-61-7054kkoftxjqcilqwkzy (COMPAZINE) injection 10 mg100 ml propofol 10 [...] oral tablet (20 sources)Central alpha-2 Adrenergic AgonistStart: 34-12-4044pclg 2 mg by mouth every eight hours as needed2 mg, Oral, EVERY 8 HOURS PRN, Starting on Fri07/02/21 at 1157, Until Discontinued, Muscle spasmstiZANidine (Zanaflex) 4 MG tablet Take 1 tablet as needed by oral route. Activevitamin b12 1 mg oral tablet (4 sources)Vitamin Z42Jqfuj: 06-10-2018 End: 42-76-5481lztk 2 tablets by mouth once dailycyanocobalamin 1000 MCG Tab Take 2 tablets by mouth daily. 60 tablet 11 06/10/2018 09/28/2020 Discontinued (Therapy completed) (20 sources)Start: 07-26-2021 End: 76-10-6737zyli 20 mg intravenously twice daily20 mg, IntraVENous, [...] less than 30 mL/min. [Order 3 End]Start: 07-24-2021 End: 37-70-2678403 mg, IntraVENous, at 100 mL/hr, Administer over 60 Minutes, EVERY 12 HOURS, First dose (after last modification) on Fri07/24/21 at 2100Start: 07-24-2021 End: 70-80-0461fbut 8 mg intravenously every hour8 mg/hr (10 mL/hr), IntraVENous, CONTINUOUS, Starting on Fri07/24/21 at 1515, Until Fri07/26/21 at 094 5Start: 07-24-2021 End: 60-99-878413 mg, IntraVENous, at 100 mL/hr, Administer over [...] Severe (7-10) [Order 2 End]Start: 07-02-2021 End: 30-45-9242160 mg, IntraVENous, at 100 mL/hr, Administer over 60 Minutes, ONCE, On Fri07/02/21 at 2345, For 1 doseStart: 07-01-2021 End: 48-81-5437124 mg, IntraVENous, at 100 mL/hr, Administer over 60 Minutes, EVERY 8 HOURS, First dose on Fri07/01/21 at 2000, For 3 dosesStart: 07-01-2021 End: 23-34-5530811 mg, IntraVENous, at 100 mL/hr, Administer over 60 Minutes, ONCE, On Fri07/01/21 at 1130, For 1 doseStart: 06-30-2021 End: 28-09-8338dhgp 8 mg intravenously every hour8 mg/hr (10 mL/hr), IntraVENous, CONTINUOUS, Starting on Fri06/30/21 at 1315, Until Fri07/02/21 at 1 411Start: 06-30-2021 End: mg, IntraVENous, at 100 mL/hr, Administer over 30 Minutes, ONCE, On 06/30/21 at 1315, For 1 doseStart: 06-30-2021 End: 51-92-372246 mg, IntraVENous, DAILY, First dose on 06/30/21 at 0915 Reconstitute with [...] IntraVENous, EVERY 6 HOURS PRN, Starting on Nhoemy 06/28/21 at 2107, Until Discontinued, Nausea, Vomiting [...] patient NOT ALERT or NPO, Starting on [facility] 06/28/21 at 1616 If patient does not [...] per system. [Order 2 End]Start: 06-28-2021 End: 08-25-9930mczo 100 mg intravenously every twelve hours2,000 mg, IntraVENous, EVERY 12 HOURS, First dose (after last modification) on [facility] 06/28/21 at 1615,Until Discontinued Antimicrobial Indications: Central Nervous System Infection Administer as slow IV Push over 5 mins Reconstitute 2 g vials with 19.2 mL of designated diluent to produce a 100mg/mL solutionStart: 06-28-2021 End: 37-58-0512810 mg, IntraVENous, at 1,000 mL/hr, Administer over 60 Minutes, ONCE, On [facility] 06/28/21 at 1445, For 1 dose Use 0.22 micron in-line filter. (1 source)Start: g (4 tablet), Oral, PRN, Starting on [facility] 06/28/21 at 1616, Until Discontinued, Low [...] mL/hr, Administer over 121 Minutes, ONCE, On [facility] 07/07/21 at 0600, For 1 doseStart: 07-06-2021 End: ,000 mL (15.2 mL/kg), IntraVENous, at 983.6 mL/hr, Administer over 61 Minutes, ONCE, On Fri07/06/21 at 0800, For 1 doseStart: 06-28-2021 End: ,000 mL (15.2 mL/kg), IntraVENous, at 1,000 mL/hr, Administer over 1 Hours, ONCE, On Fri06/28/21 at 1300, For 1 dose (3 sources)Start: 07-26-2021 End: 29-31-9427etaq 1 dose intravenously once12 mL, IntraVENous, IMG ONCE PRN, 1 dose, Starting on Fri07/26/21 at 1744, Until Fri07/26/21 at 1745,OtherStart: 07-05-2021 End: 38-85-0388mapg 1 dose intravenously once10 mL, IntraVENous, IMG ONCE PRN, 1 dose, Starting on Fri07/05/21 at 1732, Until Fri07/05/21 at 1732, OtherStart: 07-04-2021 End: 32-05-3934slvk 1 dose intravenously once12 mL, IntraVENous, IMG ONCE PRN, 1 dose, Starting on Fri07/04/21 at 1932, Until Fri07/04/21 at 1936, Other (1 source)Start: 07-03-2021 End: 23-85-4528iqoa 1 dose intravenously once25 millicurie, IntraVENous, IMG ONCE PRN, 1 dose, Starting on Fri07/03/21 at 1250, Until Fri07/03/21 at 0930, Other, Nuclear Medicine (4 sources)Start: 07-25-2021 End: 02-16-8549gccw 1 dose intravenously umzq262 mL, IntraVENous, IMG ONCE PRN, 1 dose, Starting on Fri07/25/21 at 1658, Until Fri07/25/21 at 1707, OtherStart: 07-24-2021 End: 46-48-3680pjpa 1 dose intravenously once75 mL, IntraVENous, IMG ONCE PRN, 1 dose, Starting on Fri07/24/21 at 1109, Until Discontinued, OtherStart: 06-29-2021 End: 17-39-4078mhfm 1 dose intravenously once75 mL, IntraVENous, IMG ONCE PRN, 1 dose, Starting on Fri06/29/21 at 1914, Until 06/29/21 at 1950, OtherStart: 06-28-2021 End: 35-80-1247gidb 1 dose intravenously once90 mL, IntraVENous, IMG ONCE PRN, 1 dose, Starting on Nohemy 06/28/21 at 1215, Until Nohemy 06/28/21 at 1226, Other (1 source)Start: 07-24-2021 End: -100 mcg/min (0.9375-93.75 mL/hr, rounded to 0.9-93.8 mL/hr), IntraVENous, CONTINUOUS, Starting onTue 07/24/21 at 1130, Until Nohemy 07/26/21 at 0959 [...] to maintain goal. (1 source)Start: 07-15-2021 End: 30-26-1559vfnv 1 dose intravenously vnkb721 mg, IntraVENous, ONCE, 1 dose, On 07/15/21 [...] status]EpisodicAsthma (20 sources)Asthma; Translations: [Unspecified asthma, uncomplicated]Onset: 297460-03-5622RamxgsgLwdqjvggj infection; unspecified site (5 sources)Bacteremia; Translations: [Bacteremia]Onset: 55-07-3027JxkhrikhMrsgx (1 source)Partial thickness burn of skin of finger; Translations: [Burn of second degree of single right finger (nail) except thumb, initial encounter] EpisodicCataract (20 sources)Nuclear sclerotic cataract; Translations: [Age-related nuclear cataract, left eye]Onset: 598340-58-7988AboijfqBtpynlu ulcer of skin (20 sources)Ulcer of big toe; Translations: [Non-pressure chronic ulcer of other part of left foot with unspecified severity]Onset: 23-27-0409PsiynrnNwsk; stupor; and brain damage (1 source)Stupor; Translations: [Stupor]EpisodicCoronary atherosclerosis and other heart disease (7 sources)Coronary atherosclerosis; Translations: [Atherosclerotic heart disease of [place] coronary artery without angina pectoris]Onset: 06-24-2012 83-26-4461CatuopnQghduflgmu and other anemia (4 sources)Anemia due to blood loss; Translations: [Iron deficiency anemia secondary to blood loss (chronic)]Onset: 146746-30-2424SthjqbxRxofdspkem and other anemia (6 sources)Normocytic anemia; Translations: [Anemia, unspecified]Episodic Deficiency and other anemia (2 sources)Iron deficiency anemia; Translations: [Other iron deficiency anemias] 90-94-6683QluqnrlmOqtqcopj, dementia, and amnestic and other cognitive disorders (4 sources)Delirium due to multiple etiological factors; Translations: [Delirium due to known physiological condition]Onset: 531258-74-9637EllixjoZyxhfzsl mellitus with complications (20 sources)Type 2 diabetes mellitus with ulcer; Translations: [Type 2 diabetes mellitus with foot ulcer]Onset: 252654-16-8431GjwgbtbWgqqsikb mellitus without complication (18 sources)Type 2 diabetes mellitus without complication; Translations: [Diabetes mellitus]Onset: 561057-46-6956OyyqbuzLluhafis of white blood cells (10 sources)Leukocytosis; Translations: [Elevated white blood cell count, unspecified]ChronicDisorders of lipid metabolism (20 sources)Mixed hyperlipidemia; Translations: [Hypercholesterolemia]Onset: 847596-48-2257XjwjgifHryvszmaifps (except that caused by tuberculosis or sexually transmitted disease) (4 sources)Encephalitis; Translations: [Encephalitis and encephalomyelitis, unspecified]EpisodicEsophageal disorders (8 sources)Gastroesophageal reflux disease; Translations: [Gastro-esophageal reflux disease without esophagitis]Onset: 459280-51-1780GfidxmmTrsujmptk hypertension (20 sources)Benign essential hypertension; Translations: [Hypertensive disorder] Onset: 725166-39-5353IwyouwaWvblt and electrolyte disorders (12 sources)Hypokalemia; Translations: [Hypokalemia]Onset: 37-70-5583Gmwicume Gastrointestinal hemorrhage (8 sources)Upper gastrointestinal bleeding; Translations: [Gastrointestinal hemorrhage, unspecified]EpisodicGlaucoma (20 sources)Glaucoma; Translations: [Unspecified glaucoma]Onset: 06-24-2012 ChronicHeadache; including migraine (15 sources)Headache; Translations: [Headache]Onset: EpisodicInfective arthritis and osteomyelitis (except that caused by tuberculosis or sexually transmitted disease) (20 sources)Osteomyelitis; Translations: [Osteomyelitis, unspecified]Onset: 41-84-8510WpbzgtmIhzpn disorders and dislocations; trauma-related (5 sources)Derangement of right knee; Translations: [Unspecified internal derangement of right knee]Onset: 823257-72-2531UmdfkqjDird disorders (1 source)Mild major depression, single episode; Translations: [Major depressive disorder, single episode, mild]48-89-8815SjwkqbvApbzii and vomiting (9 sources)Nausea and vomiting; Translations: [Nausea with vomiting, unspecified]EpisodicNeoplasms of unspecified nature or uncertain behavior (13 sources)Monoclonal gammopathy of uncertain significance; Translations: [Monoclonal gammopathy]Onset: 583668-77-4947FbqcubyVrgbxblkqim deficiencies (7 sources)Vitamin D deficiency; Translations: [Vitamin D deficiency, unspecified]Onset: 602219-57-3079AunitsnIxfc wounds of extremities (2 sources)Avulsion injury of fingernail; Translations: [Laceration of right thumb]EpisodicOsteoarthritis (20 sources)Osteoarthritis of joint of bilateral hands; Translations: [Primary osteoarthritis, right hand]Onset: 574062-80-7097HonooncQgued aftercare (20 sources)Patient encounter status; Translations: [MCFP (current) use of non-steroidal anti-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 (NSAID)]Onset: 479366-30-5648Sngfkcat Other aftercare (1 source)Long-term current use of antibiotic; 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]EpisodicOther SITE INSPECTOR infection and poliomyelitis (9 sources)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; 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]EpisodicOther connective tissue disease (2 sources)Pain in hallux; Translations: [Pain in left toe(s)]EpisodicOther connective tissue disease (4 sources)History of cervical spine fusion; Translations: [Arthrodesis status] Onset: 39-44-7636RomusxlpTxpek gastrointestinal disorders (7 sources)Irritable bowel syndrome; Translations: [Irritable bowel syndrome without diarrhea]Onset: 318766-88-8088JyoeofxSskom injuries and conditions due to external causes (1 source)Local infection of wound; Translations: [Other injury of unspecified body region, initial encounter]EpisodicOther lower respiratory disease (1 source)Shortness of breath; Translations: [Shortness of breath]Onset: 63-05-7436MpvjgukeKoeru lower respiratory disease (2 sources)Cough; Translations: [Cough, unspecified type]25-79-1727DiwjqckzGjljs nervous system disorders (20 sources)Chronic inflammatory demyelinating polyradiculoneuropathy; Translations: [Chronic inflammatory demyelinating polyneuritis]Onset: 06-24-2018 ChronicOther nervous system disorders (7 sources)Neuropathy of upper limb; Translations: [Unspecified mononeuropathy of unspecified upper limb]Onset: 484721-15-1218DkopvnuSkpxl nervous system disorders (9 sources)Disorder of brain; Translations: [Encephalopathy, unspecified]Chronic Other nervous system disorders (9 sources)Metabolic encephalopathy; Translations: [Metabolic encephalopathy] Onset: 67-61-5990MffxohgYjgqw nervous system disorders (2 sources)Chronic inflammatory demyelinating polyneuritis; Translations: [Chronic inflammatory demyelinating polyneuritis]Onset: 40-81-6809IrvtdfbYgwxb nervous system disorders (4 sources)Toxic metabolic encephalopathy; Translations: [Toxic metabolic encephalopathy]88-13-7857CdbefaspWgqtw nutritional; endocrine; and metabolic disorders (7 sources)POEMS syndrome; Translations: [Other disorders of plasma-protein metabolism, not elsewhere classified]Onset: 525640-67-6380JzpgjhwUctug nutritional; endocrine; and metabolic disorders (7 sources)Hypomagnesemia; Translations: [Hypomagnesemia]Onset: 07-15-2021 ChronicOther nutritional; endocrine; and metabolic disorders (1 source)Hypocalcemia; Translations: [Hypocalcemia]02-54-7048VmvhbmfTlfra nutritional; endocrine; and metabolic disorders (8 sources)Unintentional weight loss; Translations: [Abnormal weight loss] EpisodicOther nutritional; endocrine; and metabolic disorders (6 sources)Feeding problem; Translations: [Feeding difficulties]EpisodicOther screening for suspected conditions (not mental disorders or infectious disease) (9 sources)Elevated C-reactive protein; Translations: [Elevated C-reactive protein (CRP)]EpisodicOther upper respiratory disease (5 sources)Chronic rhinitis; Translations: [Chronic rhinitis]Onset: 09-26-2020 67-86-9417VnyefiwYnfhg upper respiratory disease (4 sources)Finding of respiratory device; Translations: [Encounter for attention to tracheostomy]Onset: 020557-76-9318PkodlfqZdvag upper respiratory disease (4 sources)Tracheostomy present; Translations: [Tracheostomy status]Onset: 104968-15-6577BrzqibiVgbzk upper respiratory disease (4 sources)Nasal discharge; Translations: [Other specified disorders of nose and nasal sinuses]78-76-4277RydcjfjjIfuis upper respiratory infections (4 sources)Acute pansinusitis; Translations: [Acute pansinusitis, unspecified] 95-23-2421WtuizopyIphodwzck (except that caused by tuberculosis or sexually transmitted disease) (1 source)Infective pneumonia; Translations: [Pneumonia, unspecified organism] EpisodicResidual codes; unclassified (6 sources)Tube feeding diet; Translations: [Other specified health status] EpisodicRespiratory failure; insufficiency; arrest (adult) (10 sources)Acute hypoxemic respiratory failure; Translations: [Acute respiratory failure with hypoxia]Onset: 83-47-9992SpyijoxiPkpz and subcutaneous tissue infections (17 sources)Cellulitis of right lower limb; Translations: [Cutaneous abscess of left hand]Onset: 73-24-3653ZhizkfceGbvw and subcutaneous tissue infections (1 source)Cellulitis of finger of left hand; Translations: [Cellulitis of left finger]Onset: 843328-26-4038Fmipwwibskq; intervertebral disc disorders; other back problems (20 sources)Degeneration of cervical intervertebral disc; Translations: [Other cervical disc degeneration, unspecified cervical region]Onset: 03-19-2018 82-32-5304UignskdKgizbbfabri; intervertebral disc disorders; other back problems (14 sources)Neck pain; Translations: [Cervicalgia]Onset: EpisodicThyroid disorders (20 sources)Hypothyroidism; Translations: [Hypothyroidism, unspecified]Onset: 229334-77-7349ZqhpogqTzrisjhhdpym (13 sources)Sleep apnea; Translations: [Sleep apnea, unspecified]10-10-2017 ChronicUnclassified (2 sources)Post Op Visit; Translations: [Post Op Visit]Onset: 02-15-2021 Unclassified (2 sources)Intraocular Pressure Check; Translations: [Intraocular Pressure Check]Onset: 12-26-2020 Past or Other Problems Problem ClassificationProblemDateDocumented DateEpisodic/ChronicAbdominal hernia (7 sources)Diaphragmatic hernia; Translations: [Diaphragmatic hernia without obstruction or gangrene]Onset: 051238-64-5006JgxvpcfdUxjydlyaaezurz/social admission (4 sources)Discharge status; Translations: [Encounter for administrative examinations, unspecified]Onset: 302653-50-6226FvtnexlsIslnidz dysrhythmias (7 sources)Palpitations; Translations: [Palpitations]Onset: EpisodicComplications of surgical procedures or medical care (4 sources)Ventilator associated pneumonia; Translations: [Ventilator associated pneumonia]Onset: 002329-50-0232TpqjqsoeKntlckaegk and other anemia (7 sources)Anemia; Translations: [Anemia, unspecified]Onset: 01-22-2018 19-18-4999IkzcpixtAebqlxwb of lower limb (20 sources)Closed fracture of first metatarsal bone ; Translations: [Displaced fracture of first metatarsal bone, left foot, subsequent encounter for fracture with routine healing]Onset: 85-78-3092HvdxoyurQqvdzos and fatigue (7 sources)Fatigue; Translations: [Other fatigue]Onset: EpisodicNonspecific chest pain (17 sources)Chest pain; Translations: [Other chest pain]Onset: 10-09-2017 61-47-8424GqbzopsnWkqor bone disease and musculoskeletal deformities (7 sources)Disorder of skeletal system; Translations: [Disorder of bone, unspecified]Onset: 788579-44-7144RzojyscfAzzgy bone disease and musculoskeletal deformities (7 sources)X-ray evidence of poor mineralization; Translations: [Other specified disorders of bone density andstructure, unspecified site]Onset: 03-19-2018 42-62-6237SzubdhtuHsith circulatory disease (7 sources)H/O: cardiovascular disease; Translations: [Personal history of other diseases of the circulatory system]Onset: 870313-16-7297UtgwhsasUgqey connective tissue disease (7 sources)Pain of bilateral hands; Translations: [Pain in right hand]Onset: 841483-96-4449UymjhibgXysby connective tissue disease (7 sources)Biceps tendinitis; Translations: [Bicipital tendinitis, right shoulder]Onset: 580719-75-7761WvzdcrklDnqrh connective tissue disease (7 sources)Bilateral rotator cuff tendinitis; Translations: [Other shoulder lesions, right shoulder]Onset: 346899-41-2377AigtxrqlDljup connective tissue disease (4 sources)Arthrodesis status; Translations: [Arthrodesis status]Onset: 49-43-4306BxifawtjQaevz eye disorders (17 sources)Dry eyes; Translations: [Dry eye syndrome of bilateral lacrimal glands]Onset: 679892-39-4557TcxrwvbvQbqxo injuries and conditions due to external causes (7 sources)Injury of left knee; Translations: [Unspecified injury of left lower leg, initial encounter]Onset: 01-22-2018 Resolved: 102715-11-5294VwsccyvpGspwb injuries and conditions due to external causes (7 sources)Injury of right knee; Translations: [Unspecified injury of right lower leg, initial encounter]Onset: 01-22-2018 Resolved: 804944-24-9928GegprqgqOasov liver diseases (7 sources)Alkaline phosphatase raised; Translations: [Abnormal levels of other serum enzymes]Onset: 264889-07-7857JlggmtzkDvvcz nervous system disorders (4 sources)Cerebrospinal fluid leak; Translations: [Other cranial cerebrospinal fluid leak]Onset: 300963-62-7843JodnxlpuFmxuw nervous system disorders (4 sources)Cerebrospinal fluid rhinorrhea; Translations: [CSF rhinorrhea]Onset: 868582-56-3263XlpyfsqjGbngv non-traumatic joint disorders (1 source)Pain in right knee; Translations: [Pain in joint, lower leg]Onset: 073478-78-5461XjfpqfbeMbjcn non-traumatic joint disorders (7 sources)Shoulder pain; Translations: [Pain in right shoulder]Onset: 061475-87-3787WbvsdlefTyaiu non-traumatic joint disorders (7 sources)Bilateral wrist pain; Translations: [Pain in right wrist]Onset: 819018-50-1602SogexovvQpyoe non-traumatic joint disorders (7 sources)Pain in right hip joint; Translations: [Pain in right hip]Onset: 497388-96-0240OalshqfcEivbs non-traumatic joint disorders (6 sources)Knee pain; Translations: [Pain in right knee]Onset: 01-22-2018 34-42-5678OjrbsdyrOtoxmtbx codes; unclassified (7 sources)Postmenopausal state; Translations: [Asymptomatic menopausal state] Onset: 371587-56-5258VwdnaojuQrzxrdhl codes; unclassified (9 sources)Altered mental status; Translations: [Altered mental status, unspecified]Onset: 12-89-9976VpljjlbhEjzavbseap (except in labor) (20 sources)Sepsis due to Staphylococcus aureus; Translations: [Sepsis due to Methicillin susceptible Staphylococcus aureus]Onset: 68-29-2864LbehvsbuXnjelct disorders (18 sources)Disorder of thyroid gland; Translations: [Disorder of thyroid, unspecified]Onset: 79-13-2653DzucdsfoChwgjpimcnlj (2 sources)Traumatic ulcer of left foot, unspecified ulcer stage (HCC)08-27-2024 Viral infection (8 sources)Disease caused by 2019-nCoV; Translations: [COVID-19]Onset: 07-57-1703Wliovcnt Results Test NameValueInterpretationReference RangeFacilityPerimetry studyon 09-27-2024 [facility] HealthcareRadiology Study observation (narrative)[facility] HealthcareAerobic cultureon 31-74-0907Qsyjbefdybdsd or agent identified Nom (Unsp spec)Final reportAbMission Family Health CenterNo Panel Informationon 09-06-2024 Interpretation and review of laboratory resultsAbCaro CenterPerformed at: [address] [place] [address] [id number] Yard Caller: Angel Jacobs PhD, Phone: [phone] 09-06-2024 Bacteria identified Cx Nom (Unsp spec)CommentAbMiddlesex Hospital HealthcareComment on above:Enterobacter cloacae complex Some Enterobacterales may develop resistance during therapy with third-generation cephalosporins. This resistance is most commonly seen with Citrobacter freundii complex, Enterobacter cloacae complex, and Klebsiella aerogenes. Isolates that initially test susceptible may become resistant within a few days after initiation of therapy. Testing subsequent isolates may be warranted if clinically indicated. (CLSI P058-Bl13) Light growth Bacteria identified Cx Nom (Unsp spec)Staphylococcus aureusAbCaro CenterComment on above:Based on susceptibility to oxacillin this isolate would be susceptible to: *Penicillinase-stable penicillins, such as: Cloxacillin, Dicloxacillin, Nafcillin *Beta-lactam combination agents, such as: Amoxicillin-clavulanic acid, Ampicillin-sulbactam, Piperacillin-tazobactam *Oral cephems, such as: Cefaclor, Cefdinir, Cefpodoxime, Cefprozil, Cefuroxime, Cephalexin, Loracarbef *Parenteral cephems, such as: Cefazolin, Cefepime, Cefotaxime, Cefotetan, Ceftaroline, Ceftizoxime, Ceftriaxone, Cefuroxime *Carbapenems, such as: Doripenem, Ertapenem, Imipenem, Meropenem Heavy growth Other Antibiotic [Susc]CommentNOMS HealthcareComment on above: S = Susceptible; I = [...] S Trimethoprim/Sulfa S S Vancomycin S [facility] BLOOD PRESSUREon 86-56-7019UnmSte[place] [address] Cardiology Report Signed Patient: MEG GEORGES MR#: [id number] : 1965 Acct:[id number] Age/Sex: 59 / F ADM Date: 08/10/24 Loc: CARD Attending Dr: Kailee CESPEDES Ordering Physician: Kailee Lopez Date of Service: 08/10/24 Procedure(s): CA segmental UE or LE SAMANTHA Accession Number(s): [id number] cc: MAHIN BERNAL [facility] Test Date: 2024-08-10 Pat Name: MEG GEORGES Department: Room: - Gender: Female 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 Interpretive Statements [...] ALANIS Signed By: 08/10/24220608/10/242206 DD/ 154 TD/TT: Fitness Trainer:TBHRadiology, Radiologist, - 08/10/2024 [place] [address] Cardiology Report Signed Patient: MEG GEORGES MR#: [id number] : 1965 Acct:[id number] Age/Sex: 59 / F ADM Date: 08/10/24 Loc: CARD Attending Dr: Kailee CESPEDES Ordering Physician: Kailee Lopez Date of Service: 08/10/24 Procedure(s): CA segmental UE or LE SAMANTHA Accession Number(s): [id number] cc: MAHIN BERNAL [facility] Test Date: 2024-08-10 Pat Name: MEG GEORGES Department: Room: - Gender: Female 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 Interpretive Statements Summary of the findings: [...] ALANIS Signed By: 08/10/24220608/10/242206 DD/ 1548 TD/TT: Fitness Trainer: PEDRO HealthcareRadiology Study observation (narrative)[facility] CenterSEENTAL BLOOD PRESSUREOrdered By: Radiologist Radiology on 52-21-7405[facility] Healthcare Work Phone: XR FOOT SAMANTHA MIN 3 VIEWSon 89-77-8754[place]qMaria [place] [id number] XRay Report Signed Patient: MEG GEORGES MR#: [id number] : 1965 Acct:[id number] Age/Sex: 59 / F ADM Date: 08/10/24 Loc: CARD Attending Dr: Kailee CESPEDES Ordering Physician: Kailee Lopez Date of Service: 08/10/24 Procedure(s): XR foot SAMANTHA min 3V Accession Number(s): [id number] cc: MAHIN BERNAL ; Kailee Lopez [place] [id number] Patient Name: MEG GEORGES MRN: [id number] date: 1965 Sex: F Assigned Patient Location: CARD Current Patient Location: CARD Accession/Order Number: [id number] Exam Date: 08/10/2024 11:59 Report Date: 08/10/2024 [...] Crews M.D. 08/10/2024 12:04 PM Dictation Location: [place] [address] Electronically authenticated by: [id number] Y Date: 08/10/2024 12:04 Dictated By: Misa Crews M.D. Signed By: 08/10/24 1207 DD/ 1204 TD/TT: Fitness Trainer:TBHRadiology, Radiologist, - 08/10/[address] [address] XRay Report Signed Patient: MEG GEORGES MR#: [id number] : 1965 Acct:[id number] Age/Sex: 59 / F ADM Date: 08/10/24 Loc: CARD Attending Dr: Kailee CESPEDES Ordering Physician: Kailee Lopez Date of Service: 08/10/24 Procedure(s): XR foot SAMANTHA min 3V Accession Number(s): [id number] cc: MAHIN BERNAL ; Kailee Lopez The [address] [address] Patient Name: MEG GEORGES MRN: [id number] date: 1965 Sex: F Assigned Patient Location: CARD Current Patient Location: CARD Accession/Order Number: [id number] Exam Date: 08/10/2024 11:59 Report Date: 08/10/2024 [...] Crews M.D. 08/10/2024 12:04 PM Dictation Location: [place] [address] Electronically authenticated by: [id number] Y Date: 08/10/2024 12:04 Dictated By: Misa Crews M.D. Signed By: 08/10/24 1207 DD/ 1204 TD/TT: Fitness Trainer: PEDRO HealthcareRadiology Study observation (narrative)NOMS HealthcareXR FOOT SAMANTHA MIN 3 VIEWSOrdered By: Radiologist Radiology on 76-08-2455ENAD Shoulder Options Work Phone: Ophthalmic OCT panelon 07-06-7316BXTJGeneral Leonard Wood Army Community Hospitalht Eye Images reviewed and comparison made to baseline, Images reviewed. To assess optic nerve function and for use in future follow-up. Reliability: good and adequate. Left Eye Images reviewed and comparison made to baseline, Images reviewed. To assess optic nerve function and for use in future follow-up. Reliability: good and adequate. 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 Appropriate healthcare PPE [...] failure Depression Depression Encepha (more content not included)...[facility] HospitalComment on above:Result Comment: Electronically Signed By: Jeff Clancy PA-C\.br\Date and Time Signed: 04/16/2512:24 EST\.br\Electronically Co-Signed By: Garfield Rodriguez DO\.br\Date and Time Co-Signed: 04/17/24 07:01 ESTCT Spine Lumbar w/o Contraston 97-16-0953TN Spine Lumbar w/o ContrastExam Date/Time: 04/16/2024 11:38 [...] Terence Arcos MD Transcribed by: SINDY Technologist: Jose [facility] Clinical Summaryon [id number] Clinical SummaryED Clinical Summary [place] [address] ED Clinical Summary Person Information Name: MEG GEORGES Jesusita/[facility] Age: 59 Years : 1965 Sex: Female Language: Ghanaian PCP: Jami Payne Marital Status: Visit Id: [...] 14:34:45 04/16/2024 14:34:45 04/16/2024 14:34:45 ADDRESS: [address] [place] [address] [place] [address] [phone] PHYS DOC NOTES: MEDICAL INFORMATION: Prescriptions Given: New Medications [id number], [address], [place] [id number], [phone] acetaminophen-oxycodone (Percocet 5 mg-325 mg oral tablet) [...] In 3 days 04/19/2024 DIAGNOSIS: Back pain; FallNormalWright-Patterson Medical [facility] CenterED Patient Summaryon 04-16-2024 ED Patient SummaryED Patient Summary [place] [id number] Patient Discharge Instructions Person Information Name: MEG GEORGES Age: 59 Years Arrival Date: 04/16/2024 10:20:31 Discharge Diagnosis: Back pain; Fall Primary Care Physician: Jami Payne Provider Information Primary Provider: Garfield Rodriguez DO Advanced Yarder Puncher:Jeff Clancy PA-C The exam and treatment you received in the Emergency Department were for an urgent problem and are not intended as complete care. It is important that you follow up with a doctor, nurse practitioner,or physician???s seo assistant for ongoing care. If your symptoms [...] opioids can be used to help relieve twrmuuoy-kg-kqrhhr pain and are often prescribed following a [...] be struggling with addiction, tell your health health care facility administrator and askfor guidance or call [facility]???S National Helpline at 4-185-498-NYIG. v S (more content not included)...[facility] HospitalPre-Arrival Noteon 53-07-0891Yil-Arrival NotePre-Arrival Note Pre-Arrival Summary Name: , wilfred Current Date: 04/16/2024 10:22:29 EST Gender: Female Date of : Age: 60 Pre-Arrival Type: EMS ETA: 04/16/2024 10:38:00 EST Primary Care Physician: Presenting Problem: fall Pre-Arrival User: Shirin Miller RN Referring Source: Location: [place] Completion Date/Time: 04/16/2024 10:09:00 [facility] Emergency Department Pre-Hospital Report Form Vital Signs: Pre-Hospital Report: Treatment in Route: Response to Treatment: Misc. Issues:[facility] Medicine Office/Clinic Note on 70-82-3081Bkczdd Medicine Office/Clinic NoteFakenmore hospital Medicine Office/Clinic Note Chief Complaint 1m f/u HPI Staff 1m follow up Patient is here for follow up on hyperlipidemia: Do you have side effects from the medication? no Refill needed?: _ Yearly Lipid labs: 11/19/23 Patient is here for follow up on Diabetes. How often are you checking your blood sugars? _? resides at [facility] Do you have any of the following symptoms? Vision problems? no? Lightheadedness? no? Paresthesias, Ulcerations or sores? no? Patient is here for follow up on Thyroid Disease. Do you have any of the following symptoms? Change in energy level? no Weight change? no Heat/cold intolerance? no Hair/skin/nail changes? no Change in bowels? no Last TSH: [facility] to have labs completed prior to today's [...] Tab, 100 mcg (more content not included)...Normal [facility] CampusComment on above:Result Comment: Electronically Signed By: Jami Payne\.br\Date and Time Signed: 11/25/23 12:17 EDTPre- Visit Planningon 99-60-0778Ghx-Visit PlanningPre-Visit Planning From: Mai Wilkins To: Jami Payne; Sent: 11/20/2023 11:04:45 EDT Subject: Pre-Visit Planning Due Date/Time: 11/20/2023 11:04:00 EDT Caller Name: MEG GEORGES Jemal; Caller Number: , Dorian Farrell. During [...] feel free to contact me at extension [phone]. Thank you! Mai Wilkins LPN Clinical Advertising Space Clerk [place] [address] Extension: [phone] [email or web address] From: Jami Payne To: Mai Wilkins; Sent: 11/21/2023 08:41:15 EDT Subject: RE: Pre-Visit Planning Caller Name: REBECCA MEG Jemal; Caller Number: , Sallie major depressive disorder, recurrent moderateNormalFisher R [facility] Family Medicine Office/Clinic Noteon 86-58-2609Kydtyp Medicine Office/Clinic NoteFakenmore hospital Medicine Office/Clinic Note HPI Staff Meg is a 58 year old female presenting with D/C'd from [facility] on 10/21/23 Is currently at [facility] Establish Care: History: Any previous [...] today to establish care. recently moved to [facility] from [facility] Review of Systems PHQ Score Initial [...] panel ordered 2. Long-term insulin use (Z79.4: MCFP (current) use of insulin) HGBA1C ordered 3. [...] being treated for this with infusions in [place]. she was warned about the risks of [...] pain, # 30 tab(s), Refills(s) 0, Pharmacy: [facility], 165, cm, 10/24/23 13:15:00 EDT, Height/Length [...] glargine, 15 unit(s), SubCu (more content not included)...[facility] Memorial HospitalComment on above:Result Comment: Electronically Signed By: Jami Payne\.br\Date and Time Signed: 10/24/23 14:29 EDTPre-Visit Planningon 65-97-8069Jve-Visit PlanningPre-Visit Planning From: Mai Wilkins To: Jami [...] feel free to contact me at extension [phone]. Thank you! Mai Wilkins LPN Clinical Advertising Space Clerk [place] [address] Extension: [phone] [email or web address] From: Jami Payne To: Mai Wilkins; Sent: 10/24/2023 14:29:06 EDT Subject: RE: Pre-Visit Planning Caller Name: MEG GEORGES; Caller Number: Sallie Pretty sure I addressed all of her diagnosis you had questions on. Thank you [facility] Memorial HospitalPre-Visit Planningon [id number]-Visit PlanningPre-Visit Planning From: Mai Wilkins To: Jami [...] feel free to contact me at extension [phone]. Thank you! Mai Wilkins LPN Clinical Advertising Space Clerk [place] [address] Extension: [phone] [email or web address] From: Jami Payne To: Mai Wilkins; Sent: 10/23/2023 12:43:08 EDT Subject: RE: Pre-Visit Planning Caller Name: MEG GEORGES; Caller Number: Sallie chronic kidney disease stage 3aNoHocking Valley Community HospitalPre-Visit PlanningPre-Visit Planning From: Mai Wilkins To: Jami [...] feel free to contact me at extension [phone]. Thank you! Mai Wilkins LPN Clinical Advertising Space Clerk [place] [address] Extension: [phone] [email or web address] From: Jami Payne To: Mai Wilkins; Sent: 10/23/2023 10:45:18 EDT Subject: RE: Pre-Visit Planning Caller Name: MEG GEORGES; Caller Number: Sallie will determine during visit. thank [facility] HospitalPre-Visit PlanningPre-Visit Planning From: Mai Wilkins To: Jami [...] feel free to contact me at extension [phone]. Thank you! Mai Wilkins LPN Clinical Advertising Space Clerk [address] [address] Extension: [phone] [email or web address] Physician Orderon 27-23-2668Todwukgpo Order [id number]#1.00TIFFBrown Memorial HospitalRespiratory Panel by PCRon [id number] DNA CAL+non-probe Ql (Nph) Not detectedBrown Memorial HospitalComment on above:Order Comment: per charanjit Sanches had talked to [employer] earlier in the day and they want the swab placed into the media to run the specimen [id number] 05/27/2023 17:26:25 EDT Result Comment: Testing was performed using nucleic acid amplification including Influenza A, Influenza A H1, Influenza A H3, Influenza B, RSV A, RSV B, Adenovirus, Human Metapneumovirus, Parainfluenza 1,2,3, and 4, Rhinovirus, Bordetella parapertussis/bronchiseptica, Bordetella holmesii, and Bordetella pertussis.Performed By: #### [id number] ####[facility] Zbpoahxzbg806 [facility] [id number]. parapertussis DNA CAL+probe Ql (Upper resp)Not detectedNormalNot St. Mary's Medical CenterComment on above:Order Comment: per charanjit Sanches had talked to [employer] earlier in the day and they want the swab placed into the media to run the specimen [id number] 05/27/2023 17:26:25 EDTPerformed By: #### [id number] ####[facility] Chvxfibpwr287 [facility], [id number]. pertussis DNA CAL+probe Ql (Upper resp)Not detectedNormalNot St. Mary's Medical CenterComment on above:Order Comment: charanjit Briggs had talked to [employer] earlier in the day and they want the swab placed into the media to run the specimen [id number] 05/27/2023 17:26:25 EDTPerformed By: #### [id number] ####[place] [address] [place] [facility], [place]EKCUY H1 RNA CAL+non-probe Ql (Nph)Not detectedNormSelect Medical Specialty Hospital [facility] Comment on above:Order Comment: charanjit Briggs had talked to [facility] earlier in the day and they want the swab placed into the media to run the specimen [id number] 05/27/2023 17:26:25 EDTPerformed By: #### [id number] ####Reece [address], [place]VTFYO H3 RNA CAL+non-probe Ql (Nph)Not detectedNormSelect Medical Specialty Hospital - [place] Comment on above:Order Comment: per charanjit Sanches had talked to [facility] earlier in the day and they want the swab placed into the media to run the specimen [id number] 05/27/2023 17:26:25 EDTPerformed By: #### [id number] ####[place] [address] [place] [facility], [id number] RNA CAL+non-probe Ql (Nph)Not detectedNormSelect Medical Specialty Hospital - YoungstownComment on above:Order Comment: per charanjit Sanches had talked to [facility] earlier in the day and they want the swab placed into the media to run the specimen [id number] 05/27/2023 17:26:25 EDTPerformed By: #### [id number] ####[facility] [address]djoy[address] [place] AveNorstrong memorial hospitalk, [id number] RNA CAL+non-probe Ql (Nph)Not detectedNormalKettering Health Main CampusComment on above:Order Comment: per charanjit Sanches had talked to [facility] earlier in the day and they want the swab placed into the media to run the specimen [id number] 05/27/2023 17:26:25 EDTPerformed By: #### [id number] ####[facility] [address] [place], YV[address]Premg Metapneumovirus Not detectedNormSelect Medical Specialty Hospital - YoungstownComment on above:Order Comment: per charanjit Sanches had talked to [facility] earlier in the day and they want the swab placed into the media to run the specimen [id number] 05/27/2023 17:26:25 EDT Result Comment: This test result should be correlated with clinical presentations and medical history by a healthcare provider to determine its clinical significance.Performed By: #### [id number] ####[facility] Rhptjrunmo750 [place] AveNmaranda, [place]Rtmawuzrxodky virus 1 RNA CAL+non-probe Ql (Nph)Not detectedNoHocking Valley Community HospitalComment on above:Order Comment: per charanjit Sanches had talked to [facility] earlier in the day and they want the swab placed into the media to run the specimen [id number] 05/27/2023 17:26:25 EDTPerformed By: #### [id number] ####[facility] Yhidvhdfhn148 [address] AveNornicolek, HS[address]Pnqfxcbeveqcd virus 2 RNA CAL+non-probe Ql (Nph)Not detectedNormSelect Medical Specialty Hospital - YoungstownComment on above:Order Comment: per charanjit Sanches had talked to [facility] earlier in the day and they want the swab placed into the media to run the specimen [id number] 05/27/2023 17:26:25 EDTPerformed By: #### [id number] ####[facility] Pvfgozdzcp[address] [place] AveNorwalk, [place]U[address]Vsfrvkslzftmy virus 3 RNA CAL+non-probe Ql (Nph)Not detectedNormSelect Medical Specialty Hospital [facility] [place] Comment on above:Order Comment: per charanjit Sanches had talked to [place] earlier in the day and they want the swab placed into the media to run the specimen [id number] 05/27/2023 17:26:25 EDTPerformed By: #### [id number] ####[facility] Qdpfqkdcvj873 [facility], TL[address] Parainfluenza virus 4 RNA CAL+non-probe Ql (Nph)Not detectedBrown Memorial HospitalComment on above:Order Comment: per charanjit Sanches had talked to [place] earlier in the day and they want the swab placed into the media to run the specimen [id number] 05/27/2023 17:26:25 EDTPerformed By: #### [id number] ####[facility] [address] [place], [place] [address] Panel Intrl QCPassBrown Memorial HospitalComment on above: Order Comment: per charanjit Sanches had talked to [facility] earlier in the day and they want the swab placed into the media to run the specimen [id number] 05/27/2023 17:26:25 EDTPerformed By: #### [id number] ####[facility] [address]vwkovdy[address] [place] Angelitagaylord hospitalced[facility], [place]Tepjhaiffe+Enterovirus RNA CAL+non-probe Ql (Nph)Not detectedBrown Memorial HospitalComment on above:Order Comment: per charanjit Sanches had talked to [place] earlier in the day and they want the swab placed into the media to run the specimen [id number] 05/27/2023 17:26:25 EDTPerformed By: #### [id number] ####[facility] [address]crpiqzsbv[address] [place] Maicolstrong memorial hospitalcedrick, [id number] RNA CAL+non-probe Ql (Nph)DetectedAbWexner Medical CenterComment on above:Order Comment: per charanjit Sanches had talked to [place] earlier in the day and they want the swab placed into the media to run the specimen [id number] 05/27/2023 17:26:25 EDTPerformed By: #### [id number] ####[facility] [address]kg[address] [place] [id number] CBC W/ AUTO DIFFon 03-29-2023 Basophils (Bld) [#/Vol]0.0 10*3/uLNOMS HealthcareBasophils/100 WBC (Bld)0.2 %0.0 - 2.0 %NOMS HealthcareEOS ABSOLUTE0.9HighNOMS HealthcareEosinophils/100 WBC (Bld)7.7 %0.0 - 8.0 %NOMS HealthcareErythrocyte distribution width (RBC) [Ratio] 14.1 %10.9 - 14.2 %NOMS HealthcareHematocrit (Bld) [Volume fraction]32.0 %Low 34.0 - 46.0 %NOMS HealthcareHemoglobin (Bld) [Mass/Vol]10.3 g/dLMemorial Hospital HealthcareInterpretation and review of laboratory resultsAbnormalNOMS Healthcare LYMPH ABSOLUTE2.5NOMS HealthcareLymphocytes/100 WBC (Bld)22.1 %14.0 - 50.0 %[facility] CenterMCH (RBC) [Entitic mass]30.0 pg27.0 - 34.0 pgNOEllett Memorial HospitalMCHC (RBC) [Mass/Vol]31.9 g/dLSaint Francis Medical CenterMCV (RBC) [Entitic vol]94.1 fL80.0 - 100.0 fLNOMT HealthcareMONO ABSOLUTE1.0NOMS HealthcareMonocytes/100 WBC (Bld)9.2 %4.0 - 14.0 %NOMS HealthcareNEUTRO ABSOLUTE6.8NOMT HealthcareNEUTRO AUTO60.8 % 36.0 - 75.0 %NOMS HealthcarePlatelet mean volume (Bld) [Entitic vol]7.5 fL6.4 - 10.8 fLNOMT HealthcarePlatelets (Bld) [#/Vol]270.0 10*3/uLNOMS HealthcareRBC (Bld) [#/Vol]3.4 10*6/uLLowNOMS HealthcareWBC (Bld) [#/Vol]11.3 10*3/uLHighNOMS HealthcareOriginal Ordering Provider: MD RUFUS Sanchez [facility] CT CERVICAL SPINE WO CONTRASTon 05-82-1779NA CERVICAL SPINE WO CONTRAST EXAMINATION: CT CERVICAL [...] to 8 to 9 mm compatible with tkdc-pr-bosnhqxp central stenosis. No neural foraminal stenosis. C3-C4: [...] Signed by: Chance Hugo DO 11/23/22 Final resultNoKindred Hospital DaytonXR CERVICAL SPINE (4-5 VIEWS)on 86-53-4495CO CERVICAL SPINE (4-5 VIEWS)EXAMINATION: 4 XRAY VIEWS [...] Signed by: Clark Veliz MD 04/03/22 Final resultNoCommunity Regional Medical CenterPrior dens fracture with posterior fixation at C1-2 without complication. Multilevel degenerative facet hypertrophy. [facility] RIS CONSOLIDATEDEXAMINATION: 4 XRAY VIEWS OF THE CERVICAL [...] The lung apices are without acute process. [facility] Clark Horvath MD - 04/03/2022 EXAMINATION: 4 XRAY VIEWS [...] C1-2 without complication. Multilevel degenerative facet hypertrophy. [employer] Phone: XR CERVICAL SPINE (4-5 VIEWS)Ordered By: Clark Veliz on 99-32-7411ANT [employer] Phone: XR CERVICAL SPINE (4-5 VIEWS)on 21-24-1026Luhpzjukv Study observation (narrative)[employer] Phone: XR CERVICAL SPINE FLEXION AND EXTENSIONon 12-06-2021 Similar angulated pathologic dens fracture with posterior fixation C1-C2. [facility] CONSOLIDATEDEXAMINATION: 2 XRAY VIEWS OF THE CERVICAL SPINE 12/04/2021 10:31 am COMPARISON: 09/23/2021, 09/25/2021 HISTORY: ORDERING SYSTEM PROVIDED HISTORY: Atlantoaxial instability TECHNOLOGIST PROVIDED HISTORY: post-op FINDINGS: Similar appearance of fixation hardware posteriorly at C1-C2. Pathologic dens fracture with similar angulation in comparison to prior exams. Somewhat limited motion without definite dynamic instability on flexion/extension views. There is a tracheostomy tube in place. Similar wsqa-qc-ajdwgmvs degenerative changes lower cervical spine. No localized prevertebral soft tissue swelling. [facility] Jose Briceno MD - 12/06/2021 EXAMINATION: 2 [...] is a tracheostomy tube in place. Similar hhfw-nl-gosouccy degenerative changes lower cervical spine. No localized prevertebral soft tissue swelling. IMPRESSION: Similar angulated pathologic dens fracture with posterior fixation C1-C2. [employer] Phone: XR CERVICAL SPINE FLEXION AND EXTENSIONOrdered By: Jose Chan on 02-54-6233WKY [employer] Phone: XR CERVICAL SPINE FLEXION AND EXTENSIONon 12-04-2021 Radiology Study observation (narrative)[employer] Phone: basic Metabolic Panelon 42-95-8124Nkliv gap [Moles/Vol]15.1 mmol/LHigh6.0-15.0C[facility] Lutheran HospitalComment on above:Performed By: #### CBC, BMP #### [facility] [address] [place] [address] USACalcium [Mass/Vol]9.6 mg/dLNormal8.2-10.2FAvita Health System Ontario HospitalComment on above:Result Comment: PERFORMED BY: [place] [address] PATHOLOGIST BOBBIN DISKER ALEYDA GUERRIER M.D.Performed By: #### CBC, BMP #### [facility] [address] [place] [address] USAChloride [Moles/Vol]97 mmol/JZpgxnw23-179IlyowtbhaCleveland Clinic Lutheran HospitalComment on above:Performed By: #### CBC, BMP #### [facility] [address] [place] [address] USACO2 [Moles/Vol]25.4 mmol/PYasllt59.0-30.0C[facility] Luther[facility] HospitalComment on above:Performed By: #### CBC, BMP #### [facility] [address] [place] [address] USACreatinine [Mass/Vol]0.82 mg/dLNormal0.44-1.03C[facility] Luther[facility] HospitalComment on above:Performed By: #### CBC, BMP #### [facility] [address] [place] [address] USAEstimated GFR ( Jesusita> 60NormJ.W. Ruby Memorial HospitalComment on above:Result Comment: GFR estimated reference range: According to KDOQI guidelines, <60 ml/min/1.73m2 is sufficient to diagnose a patient with chronic kidney disease.Performed By: #### CBC, BMP #### [facility] [address] [place] [id number] USAEstimated GFR (Non- Am> 60NormJ.W. Ruby Memorial HospitalComment on above:Performed By: #### CBC, BMP #### [facility] [address] [place] [address] USAGlucose [Mass/Vol]105 mg/eLRosg11-538OhylmwjbkCleveland Clinic Lutheran HospitalComment on above:Result Comment: Random Glucose Reference Range is dependent on time and content of last meal. Glucose of more than 200 mg/dL in a nonstressed, ambulatory subject supports the diagnosis of Diabetes Mellitus. ADA recommended reference rangePerformed By: #### CBC, BMP #### [facility] [address] [place] [address] USAPotassium [Moles/Vol]4.5 mmol/LNormal3.5-5.1FAvita Health System Ontario HospitalComment on above:Performed By: #### CBC, BMP #### [facility] [address] [place] [id number] USASodium [Moles/Vol]133 mmol/HEqd927-015ZwqyndajjCleveland Clinic Lutheran HospitalComment on above:Performed By: #### CBC, BMP #### [facility] [address] [place] [address] USAUrea nitrogen [Mass/Vol]31 mg/dLHigh9-23Firelands Regional Medical CenterComment on above:Performed By: #### CBC, BMP #### [facility] [address] [place] [id number] USABasophils Auto (Bld) [#/Vol]Ordered By: Rufus Perez on 26-45-7682Brgyswcnw (Bld) [#/Vol]0.0 10*3/uL0.0-0.2FAvita Health System Ontario HospitalBasophils/100 WBC Auto (Bld)Ordered By: Rufus Perez on 11-22-2021 Basophils/100 WBC (Bld)0.3 %.[facility] Luther[facility] HospitalBlood hemoglobin measurement (mass/volume)Ordered By: Rufus Perez on 47-90-4746Bqliwbxwnl (Bld) [Mass/Vol]10.1 g/dL11.8-15.4FAvita Health System Ontario HospitalBlwheaton medical center leukocytes automated count (number/volume)Ordered By: Rufus Perez on 05-94-0876CIN (Bld) [#/Vol]12.2 10*3/uL4.5-11.0C[facility] Luther[facility] HospitalComplete Blood Count Auto Diffon 88-67-7990Kkbhsfirg (Bld) [#/Vol]0.0 10*3/uLNormal0.0-0.2FAvita Health System Ontario HospitalComment on above:Result Comment: PERFORMED BY: [place] [address] PATHOLOGIST BOBBIN DISKER ALEYDA GUERRIER M.D.Performed By: #### CBC, BMP #### [facility] [address] [place] [id number] USABasophils/100 WBC (Bld)0.3 %Normal.[facility] Luther[facility] HospitalComment on above:Performed By: #### CBC, BMP #### [facility] [address] [place] [address] USAEosinophils (Bld) [#/Vol]0.2 10*3/uLNormal0.0-0.45 [facility] HospitalComment on above:Performed By: #### CBC, BMP #### [place] [address] USAEosinophils/100 WBC (Bld)2.0 %Normal.[facility] Luther[facility] HospitalComment on above:Performed By: #### CBC, BMP #### [place] [address] USAErythrocyte distribution width (RBC) [Ratio]19.2 %High 11.9-15.3FAvita Health System Ontario HospitalComment on above:Performed By: #### CBC, BMP #### [place] [address] USAHematocrit (Bld) [Volume fraction]32.0 %Low34.0-46.4 [facility] HospitalComment on above:Performed By: #### CBC, BMP #### [place] [address] USAHemoglobin (Bld) [Mass/Vol]10.1 g/dLLow11.8-15.4FAvita Health System Ontario HospitalComment on above:Performed By: #### CBC, BMP #### [place] [address] USALymphocytes (Bld) [#/Vol]2.2 10*3/uLNormal1.00-4.8 [facility] HospitalComment on above:Performed By: #### CBC, BMP #### [place] [address] USALymphocytes/100 WBC (Bld)18.2 %Normal.[facility] Luther[facility] HospitalComment on above:Performed By: #### CBC, BMP #### [place] [address] USAMCH (RBC) [Entitic mass]27.0 lbSiekaw66.7-34.3FAvita Health System Ontario HospitalComment on above:Performed By: #### CBC, BMP #### [place] [address] USAMCV (RBC) [Entitic vol]85.7 xKOyvcgu65-928FpybscttzCleveland Clinic Lutheran HospitalComment on above:Performed By: #### CBC, BMP #### [place] [id number] USAMean Corpuscular HGB Conc31.5 g/dLLow32.0-35.0[facility] Lutheran HospitalComment on above:Performed By: #### CBC, BMP #### [facility] [address] [place] [address] USAMonocytes (Bld) [#/Vol]0.6 10*3/uLNormal0.0-0.8[facility] Lutheran HospitalComment on above:Performed By: #### CBC, BMP #### [facility] [address] [place] [address] USAMonocytes/100 WBC (Bld)5.3 %Normal.[facility] Luther[facility] HospitalComment on above:Performed By: #### CBC, BMP #### [facility] [address] [place] [address] USANeutrophils (Bld) [#/Vol]9.0 10*3/uLHigh1.8-7.7FAvita Health System Ontario HospitalComment on above:Performed By: #### CBC, BMP #### [place] [address] USANeutrophils/100 WBC (Bld)74.2 %Normal.[facility] Luther[facility] HospitalComment on above:Performed By: #### CBC, BMP #### [facility] [address] [place] [address] USANucleated RBC/100 WBC (Bld) [Ratio]0.0 %Normal0-0.5 [facility] HospitalComsheridan community hospital on above:Performed By: #### CBC, BMP #### [facility] [address] [place] [address] USAPlatelet mean volume (Bld) [Entitic vol]7.4 fLNormal 6.3-10.7FAvita Health System Ontario HospitalComment on above:Performed By: #### CBC, BMP #### [facility] [address] [place] [address] USAPlatelets (Bld) [#/Vol]543 10*3/jYMgey629-490ZpwlnvljyCleveland Clinic Lutheran HospitalComment on above:Performed By: #### CBC, BMP #### [facility] [address] [place] [address] USARBC (Bld) [#/Vol]3.74 10*6/uLNormal3.60-5.00[facility] Luther[facility] HospitalComment on above:Performed By: #### CBC, BMP #### [facility] [address] [place] [address] USAWBC (Bld) [#/Vol]12.2 10*3/uLHigh4.5-11.0[facility] Luther[facility] HospitalComment on above:Performed By: #### CBC, BMP #### [facility] [address] [place] [address] USACreatinine and Glomerular filtration rate.predicted panel (S/P/Bld)Ordered By: Rufus Perez on 45-87-0232Yzxqxtnkgv [Mass/Vol]0.82 mg/dL 0.44-1.03C[facility] Lutheran HospitalEosinophils Auto (Bld) [#/Vol]Ordered By: Rufus Perez on 54-83-7579Ekdayamonwc (Bld) [#/Vol]0.2 10*3/uL0.0-0.45 [facility] HospitalEosinophils/100 WBC Auto (Bld)Ordered By: Rufus Perez on 34-71-2583Odusefogmxm/100 WBC (Bld)2.0 %.[facility] Luther[facility] HospitalErythrocyte distribution width Auto (RBC) [Ratio]Ordered By: Rufus Perez on 50-47-6601Nwkyzfszjkd distribution width (RBC) [Ratio]19.2 % 11.9-15.3FAvita Health System Ontario HospitalEstimated glomerular filtration rate (GFR) non- AmericanOrdered By: Rufus Perez on 77-29-6908LZY/1.73 sq M.predicted among non-blacks MDRD (S/P/Bld) [Vol rate/Area]> 60 mL/MinCleveland Clinic Lutheran HospitalHematocrit Auto (Bld) [Volume fraction]Ordered By: Rufus Perez on 42-39-6196Jbsqxjzcdi (Bld) [Volume fraction]32.0 %34.0-46.4Fire[facility] CenterLaboratory - Hematology and Cell countsOrdered By: Rufus Perez on 54-26-2884Izamhgkaq RBC/100 WBC (Bld) [Ratio]0.0 %0-0.5FAvita Health System Ontario HospitalLymphocytes Auto (Bld) [#/Vol]Ordered By: Rufus Perez on 94-04-0839Otgykshszsp (Bld) [#/Vol]2.2 10*3/uL1.00-4.8[facility] Luther[facility] HospitalLymphocytes/100 WBC Auto (Bld)Ordered By: Rufus Perez on 10-11-0429Lhhamspkkjg/100 WBC (Bld)18.2 %.[facility] Auto (RBC) [Entitic mass]Ordered By: Rufus Perez on 14-32-1081AAX (RBC) [Entitic mass]27.0 pg24.7-34.3FCrystal Clinic Orthopedic CenterHC Auto (RBC) [Mass/Vol]Ordered By: Rufus Perez on 05-18-4693KRGF (RBC) [Mass/Vol]31.5 g/dL 32.0-35.0[facility] HospitalMCV Auto (RBC) [Entitic vol]Ordered By: Rufus Perez on 99-07-6599RST (RBC) [Entitic vol]85.7 zD19-944WlyebbywuCleveland Clinic Lutheran HospitalMonocytes Auto (Bld) [#/Vol]Ordered By: Rufus Perez on 75-96-5014Gvgujkgut (Bld) [#/Vol]0.6 10*3/uL0.0-0.8[facility] HospitalMonocytes/100 WBC Auto (Bld)Ordered By: Rufus Perez on 11-22-2021 Monocytes/100 WBC (Bld)5.3 %.[facility] Luther[facility] HospitalNeutrophils Auto (Bld) [#/Vol]Ordered By: Rufus Perez on 25-06-2632Koylwcfcrxw (Bld) [#/Vol]9.0 10*3/uL1.8-7.7FAvita Health System Ontario HospitalNeutrophils/100 WBC Auto (Bld) Ordered By: Rufus Perez on 02-64-2141Ycokxkjmdng/100 WBC (Bld)74.2 %.[facility] HospitalNo Panel InformationOrdered By: Rufus Perez on 14-19-7285Bqzictfuf GFR ()> 60 mL/MinCleveland Clinic Lutheran HospitalComment on above:GFR estimated reference range: According to KDOQI guidelines, <60 ml/min/1.73m2 is sufficient todiagnose a patient with chronic kidney disease.Pharmacy Creatinine Clearance (ChemN/[facility] HospitalPlatelet mean volume Auto (Bld) [Entitic vol]Ordered By: Rufus Perez on 63-73-6059Lwfsytio mean volume (Bld) [Entitic vol]7.4 fL6.3-10.7FAvita Health System Ontario HospitalPlatelets Auto (Bld) [#/Vol]Ordered By: Rufus Perez on 28-44-0093Yhzmzoxln (Bld) [#/Vol]543 10*3/nM945-656IiojkirlxCleveland Clinic Lutheran HospitalRBC Auto (Bld) [#/Vol]Ordered By: Rufus Perez on 58-49-1154SDP (Bld) [#/Vol]3.74 10*6/uL3.60-5.00Kindred Hospital Daytonerum or plasma anion gap determinationOrdered By: Rufus Perez on 84-22-4732Wijue gap [Moles/Vol]15.1 mmol/L6.0-15.0[facility]red Hospital Daytonerum or plasma calcium measurement (mass/volume)Ordered By: Rufus Perez on 20-89-8136Ivnubsj [Mass/Vol]9.6 mg/dL8.2-10.2FMarietta Memorial Hospitalerum or plasma chloride measurement (moles/volume)Ordered By: Rufus Perez on 11-22-2021 Chloride [Moles/Vol]97 mmol/K92-554BnrfkjokpKindred Hospital Daytonerum or plasma glucose measurement (mass/volume)Ordered By: Rufus Perez on 11-22-2021 Glucose [Mass/Vol]105 mg/xN11-505UywalqplfCleveland Clinic Lutheran HospitalComment on above:ADA recommended reference rangeRandom Glucose Reference Range is dependent on time and content of last meal. Glucose of more than 200 mg/dL in a nonstressed, ambulatory subject supports the diagnosisof Diabetes Mellitus.Serum or plasma potassium measurement (moles/volume)Ordered By: Rufus Perez on 22-40-2792Vjbqbjfvw [Moles/Vol]4.5 mmol/L3.5-5.1FMarietta Memorial Hospitalerum or plasma sodium measurement (moles/volume)Ordered By: Rufus Perez on 19-51-7737Dvodah [Moles/Vol]133 mmol/M306-240LtqzlwidsKindred Hospital Daytonerum or plasma total carbon dioxide measurement (moles/volume)Ordered By: Rufus Perez on 07-90-8332FL6 [Moles/Vol]25.4 mmol/L22.0-30.0[facility]red Hospital Daytonerum or plasma urea nitrogen measurement (mass/volume)Ordered By: Rufus Perez on 43-03-1353Oacg nitrogen [Mass/Vol]31 mg/dL9-23C[facility] Lutheran HospitalBASIC METABOLIC PANELon 57-03-1929Mvgpm gap [Moles/Vol]10 mmol/LNormal<=30UnMercy Health Lorain HospitalComment on above:Performed By: #### [id number] #### [facility] ([facility]) [address] [place], [place] [address]Mwethwt [Mass/Vol]9.6 mg/dLNormal8.6-10.3UnMercy Health Lorain HospitalComment on above:Performed By: #### [id number] #### [facility] ([facility]) [address] [place], [place] [address]Puaysgwx [Moles/Vol]101 mmol/RPkdouk51-588GedsvoameqMercy Health Lorain HospitalComment on above:Performed By: #### [id number] #### [facility] ([facility]) [address] [place], [place] [address]WT4 [Moles/Vol]28 mmol/OIhejea12-58KfybawvcajMercy Health Lorain HospitalComment on above:Performed By: #### [id number] #### [facility] ([facility]) [address] [place], [place] [address]Cxfatgddgq [Mass/Vol]0.71 mg/dLNormal0.60-1.20UnMercy Health Lorain HospitalComment on above:Performed By: #### [id number] #### [facility] ([facility]) [address] [place] [address]ZYLKICRZQE FILTRATION RATE ML/MIN/1.73 SQ M.FZUCEJJYX17.2 mL/min/1.73m*2Normal>60.0UnMercy Health Lorain HospitalComment on above: Result Comment: [facility]???s estimated glomerular filtration rate (eGFR) will [...] of individuals.Performed By: #### [id number] #### [facility] ([facility]) [address] [place] [address]Ttdcjyb [Mass/Vol]74 mg/pTUmgqci80-139FebvgywzbtMercy Health Lorain HospitalComment on above:Performed By: #### [id number] #### [facility] ([facility]) [address] [place] [address]Wqjgrxrcp [Moles/Vol]4.3 mmol/LNormal3.5-5.1UnMercy Health Lorain HospitalComment on above:Performed By: #### [id number] #### [facility] ([facility]) [address] [place] [address]Uwejhp [Moles/Vol]139 mmol/KPlzhhn745-061WdjatdoqyxMercy Health Lorain HospitalComment on above:Performed By: #### [id number] #### [facility] ([facility]) [address] [place] [address]Sfxz nitrogen [Mass/Vol]36 mg/dLHigh7-25UnMercy Health Lorain HospitalComment on above:Performed By: #### [id number] #### [facility] ([facility]) [address] [place] [address]NHTO NITROGEN/CREATININE (MASS RATIO) IN SER/PLAS50.70Normal [facility] HospitalComment on above:Performed By: #### [id number] #### [facility] ([facility]) [address] [place], [place] [address]OWRDGOFKFIkv 49-99-1402Ocxlxpjpxb (Bld) [Volume fraction]33.5 % Low36.0-48.0UnMercy Health Lorain HospitalComment on above:Performed By: #### [id number] #### [facility] ([facility]) [address] [place], [place] [address]DBYJGIAADFpv 64-11-9452Vglcxldlwq (Bld) [Mass/Vol]10.7 g/dLLow 12.0-15.0UnMercy Health Lorain HospitalComment on above:Performed By: #### [id number] #### [facility] ([facility]) [address] [place], [place] [address]MAGBJQLL BLOOD GAS WITH ICAon 90-37-6274JLAE EXCESS-7 mmol/LLow -2-3The [facility] HospitalComment on above:Performed By: #### [id number] ####[facility] [facility] [place] [address], USADELIVERY SYSTEMSVENTNormLancaster Municipal Hospital Comment on above:Performed By: #### [id number] ####[facility] [facility] [place] [address], WQQENC230 %NormalThe [facility] HospitalComment on above:Performed By: #### [id number] ####[facility] [facility] [facility] [place] [address], USAHCO3 (Bld) [Moles/Vol]17 mmol/VDgz91-96Nsh [facility] HospitalComment on above:Performed By: #### [id number] ####[facility] [facility] [place] [address], USAIONIZED CALCIUM1.20 mmol/LNormal1.13-1.32The [facility] HospitalComment on above:Performed By: #### [id number] ####[facility] [place] [address], [place] MIN VOLUME6.7NoUniversity Hospitals St. John Medical CenterComment on above: Performed By: #### [id number] ####[facility] [place] [address], USAMODALITYVENTNoUniversity Hospitals St. John Medical CenterComment on above:Performed By: #### [id number] ####[facility] [place] [address], USAOxygen (Bld) [Partial pressure] 163 mm[Hg]Critically kxpe93-747Htq [facility] HospitalComment on above:Performed By: #### [id number] ####[facility] [place] [address], USAOxygen saturation in Blood97.1 %High94.0-97.0 The [facility] HospitalComment on above:Performed By: #### [id number] ####[facility] [place] [address], [place] TQL601 iyXlBvq53-72Nvj [facility] HospitalComment on above: Performed By: #### [id number] ####[facility] [place] [address], USAPEEP8.[address]XrymbfYacUniversity Hospitals [address] John Medical CenterComment on above:Performed By: #### [id number] ####[facility] [place] [address], USAPF FCXNC608 mmHgNoUniversity [address] John Medical CenterComment on above:Performed By: #### [id number] ####[facility] [place] [address], [place] pH (Bld)7.39 [pH]Normal7.35-7.45The [facility] HospitalComment on above:Performed By: #### [id number] ####[facility] [place] [address], USAPRESSURE RYPTGEY2FxwudjYenUniversity Hospitals St. John Medical CenterComment on above:Performed By: #### [id number] ####[facility] [place] [address], USABASE EXCESS-7 mmol/LLow-2-3The [facility] HospitalComment on above:Performed By: #### [id number] ####[facility] [place] [address], USADELIVERY SYSTEMSVENTMount St. Mary Hospital Comment on above:Performed By: #### [id number] ####[facility] [place] [address], WGUFGQ942 %NormalThe [facility] HospitalComment on above:Performed By: #### [id number] ####[facility] [place] [address], USAHCO3 (Bld) [Moles/Vol]17 mmol/VYje81-24Wyh [facility] HospitalComment on above:Performed By: #### [id number] ####[facility] [place] [address], USAIONIZED CALCIUM1.15 mmol/LNormal1.13-1.32The [facility] HospitalComment on above:Performed By: #### [id number] ####[facility] [place] [address], [place] MIN VOLUME8.2NormalThe [facility] HospitalComment on above: Performed By: #### [id number] ####[facility] [place] [address], USAMODALITYACNoUniversity Hospitals St. John Medical Center Comment on above:Performed By: #### [id number] ####[facility] [place] [address], USAOxygen (Bld) [Partial pressure]158 mm[Hg]Critically alhw99-357Oku [facility] HospitalComment on above:Performed By: #### [id number] ####[facility] [place] [address], USAOxygen saturation in Blood97.6 %High94.0-97.0 The [facility] HospitalComment on above:Performed By: #### [id number] ####[facility] [place] [address], [place] TBB199 zoXpZbe35-22Naw [facility] HospitalComment on above: Performed By: #### [id number] ####[facility] [place] [address], USAPEEP8.0 UZO53EatetsQsuLancaster Municipal HospitalComment on above:Performed By: #### [id number] ####[facility] [place] [address], USAPF FGXQN[address] John Medical CenterComment on above:Performed By: #### [id number] ####[facility] [place] [address], [place] pH (Bld)7.41 [pH]Normal7.35-7.45The [facility] HospitalComment on above:Performed By: #### [id number] ####[facility] [place] [address], USARespiratory rate12 /minNoUniversity Hospitals St. John Medical CenterComment on above:Performed By: #### [id number] ####[facility] [place] [address], USATIDAL VOLUME (VT) KH434PvtgwqOcgLancaster Municipal HospitalComment on above: Performed By: #### [id number] ####[facility] [place] [address], USABASE EXCESS-3 mmol/LLow-2-3The [facility] HospitalComment on above:Performed By: #### [id number] ####[facility] [place] [address], USADELIVERY SYSTEMSMVNormal The [facility] HospitalComment on above:Performed By: #### [id number] ####[facility] [place] [address], [place] GWX828 %NormalThe [facility] HospitalComment on above:Performed By: #### [id number] ####[facility] [place] [address], USAHCO3 (Bld) [Moles/Vol]21 mmol/KYzgiml93-46Tnm [facility] HospitalComment on above:Performed By: #### [id number] ####[facility] [place] [address], USAIONIZED CALCIUM1.24 mmol/LNormal1.13-1.32The [facility] HospitalComment on above: Performed By: #### [id number] ####[facility] [place] [address], USAMIN VOLUME6.7NormalThShelby Memorial HospitalComment on above:Performed By: #### [id number] ####[facility] [place] [address], USAMODALITYACNoUniversity Hospitals St. John Medical CenterComment on above:Performed By: #### [id number] ####[facility] [place] [address], USAOxygen (Bld) [Partial pressure]155 mm[Hg]Critically dxql47-920Kvp [facility] HospitalComment on above:Performed By: #### [id number] ####[facility] [place] [address], [facility]DIAN MEDICAL CENTEROxygen saturation in Blood98.3 %High94.0-97.0The [facility] HospitalComment on above: Performed By: #### [id number] ####[facility] [place] [address], DAXOEL510 jxDmUeo85-34Dwz [facility] HospitalComment on above:Performed By: #### [id number] ####[facility] [place] [address], USAPEEP8.[address] Hospit[address] John Medical CenterComment on above:Performed By: #### [id number] ####[facility] [place] [address], [place] pH (Bld)7.42 [pH]Normal7.35-7.45The [facility] HospitalComment on above:Performed By: #### [id number] ####[facility] [place] [address], USARespiratory rate12 /minNoUniversity Hospitals St. John Medical CenterComment on above:Performed By: #### [id number] ####[facility] [place] [address], USATIDAL VOLUME (VT) ZB181NolanlFrqUniversity Hospitals St. John Medical CenterComment on above: Performed By: #### [id number] ####[facility] [place] [address], USABASIC METABOLIC PANELon 12-39-8392Gptcwvt [Mass/Vol]7.9 mg/dLLow8.6-10.3The [facility] HospitalComment on above:Order Comment: No: Do not add to previous drawPerformed By: #### [id number] #### [facility] [address] [place] [address], USAChloride [Moles/Vol]110 mmol/RAcuy93-083Xtr [facility] HospitalComment on above:Order Comment: No: Do not add to previous drawPerformed By: #### [id number] #### [facility] [address] [place] [address], USACO2 [Moles/Vol]20 mmol/GBhe68-05Fwf [facility] HospitalComment on above:Order Comment: No: Do not add to previous draw Performed By: #### [id number] #### [facility] [address] [place] [address], USACreatinine [Mass/Vol]0.77 mg/dLNormal0.60-1.20The [facility] HospitalComment on above:Order Comment: No: Do not add to previous drawPerformed By: #### [id number] #### [facility] [address] [place] [address], USAGFR/1.73 sq M.predicted among blacks MDRD (S/P/Bld) [Vol rate/Area]mL/min/{1.73_m2}Normal>60The [facility] Comment on above:Order Comment: No: Do not add to previous drawPerformed By: #### [id number] #### [facility] [address] [place] [address], USAGFR/1.73 sq M.predicted among non-blacks MDRD (S/P/Bld) [Vol rate/Area]mL/min/{1.73_m2}Normal>60The [facility] Comment on above:Order Comment: No: Do not add to previous drawPerformed By: #### [id number] #### [facility] [address] [place] [address], USAGlucose [Mass/Vol]124 mg/xZHxjx74-827Clr [facility] HospitalComment on above:Order Comment: No: Do not add to previous drawPerformed By: #### [id number] #### [facility] [address] [place] [address], USAPotassium [Moles/Vol]3.8 mmol/LNormal3.5-5.1The [facility] HospitalComment on above:Order Comment: No: Do not add to previous drawPerformed By: #### [id number] #### [facility] [address] [place] [address], USASodium [Moles/Vol]139 mmol/NMisyaf054-030Acj [facility] HospitalComment on above:Order Comment: No: Do not add to previous drawPerformed By: #### [id number] #### [facility] [address] [place] [address], USAUrea nitrogen [Mass/Vol]26 mg/dLHigh7-25The [facility] HospitalComment on above:Order Comment: No: Do not add to previous drawPerformed By: #### [id number] #### [facility] [address] [place] [address], USACBC COMPLETE BLOOD COUNTon 31-36-5108Ytdoheedhjf distribution width (RBC) [Ratio]18.3 %High11.5-15.0The [facility] HospitalComment on above:Order Comment: No: Do not add to previous draw Nurse drawPerformed By: #### [id number] #### [facility] [address] [place] [address], USAHematocrit (Bld) [Volume fraction]24.4 %Low36.0-45.0The [facility] HospitalComment on above:Order Comment: No: Do not add to previous draw Nurse drawPerformed By: #### [id number] #### [facility] [address] [facility] [place] [address], USAHemoglobin (Bld) [Mass/Vol]8.2 g/dLLow12.0-15.0The [facility] HospitalComment on above:Order Comment: No: Do not add to previous draw Nurse drawPerformed By: #### [id number] #### [facility] [address] [place] [address], [facility] (RBC) [Entitic mass]30.5 pbGqeczw93.0-33.0The [facility] HospitalComment on above:Order Comment: No: Do not add to previous draw Nurse drawPerformed By: #### [id number] #### [facility] [address] [place] [id number], [facility]UTHRIEHC (RBC) [Mass/Vol]33.6 g/iSGrcpah58.0-35.0The [facility] HospitalComment on above:Order Comment: No: Do not add to previous draw Nurse drawPerformed By: #### [id number] #### [facility] [address] [facility]. [place] [id number], [facility] (RBC) [Entitic vol]90.7 rUTcmdjj81.0-98.0The [facility] HospitalComment on above:Order Comment: No: Do not add to previous draw Nurse drawPerformed By: #### [id number] #### [facility] [address] [place] [address], [facility] MEDICAL CENTERNucleated RBC/100 WBC (Bld) [Ratio]0 %Normal0-0The [facility] HospitalComment on above:Order Comment: No: Do not add to previous draw Nurse drawPerformed By: #### [id number] #### [facility] [address] [facility] [place] [address], [place] [id number] 10*3/[id number] [facility] HospitalComment on above:Order Comment: No: Do not add to previous draw Nurse drawPerformed By: #### [id number] #### [facility] [address] [place] [address], [facility] CENTERRBC (Bld) [#/Vol]2.69 10*6/uLLow3.80-5.00The [facility] HospitalComment on above:Order Comment: No: Do not add to previous draw Nurse drawPerformed By: #### [id number] #### [facility] [address] [facility] [place] [address], [place]BC (Bld) [#/Vol]11.33 10*3/uLHigh4.00-10.60The [facility] HospitalComment on above:Order Comment: No: Do not add to previous draw Nurse drawPerformed By: #### [id number] #### [facility] [address] [place] [address], USACT BRAIN WO CONTRASTon [id number] BRAIN WO CONTRAST [facility] Department of Radiology [address] [place] [id number] Patient Name: MEG GEORGES : 1965 Sex: F Age: Race: White Pt. Location: [place] [address] Patient Status: I Ordered Date: 08/21/2021 12:50:00 [...] report. Electronically signed: Martinez Hoover. Transcribed by: [email or web address], User Resident: ARIEL SOLORZANO Electronically Signed by: MARTINEZ HOOVER @ 08/21/2021 05:07 PM I personally read this/these film(s) with this Veterans Health AdministrationComment on above:Order Comment: Check NG Tube PositionCT FACIAL BONES W CONTRASTon [id number] FACIAL BONES W CONTRASTUnMer[facility] Department of Radiology [address] [place] [phone] Patient Name: MEG GEORGES : 1965 Sex: F Age: Race: White Pt. Location: [place] [address] Patient Status: I Ordered Date: 08/21/2021 12:50:00 [...] above. Electronically signed: Martinez Hoover. Transcribed by: [email or web address], User Resident: Electronically Signed by: MARTINEZ HOOVER @ 08/21/2021 05:09 PMNormalThe [facility] HospitalComment on above:Order Comment: R/O AtelectasisLACTATE BLOODon 68-20-9613Hwvlvmi [Moles/Vol]0.6 mmol/LNormal.5-2.2 The [facility] HospitalComment on above:Order Comment: No: Do not add to previous drawPerformed By: #### [id number] ####[facility] [place] [address], USALIVER BATTERYon 08-21-2021 Albumin [Mass/Vol]2.3 g/dLLow3.5-5.7The [facility] Comment on above:Order Comment: No: Do not add to previous drawPerformed By: #### [id number] #### [facility] [address] [place] [address], USAALKALINE LCNLDA972 IU/AFzkk49-443Alh [facility] HospitalComment on above:Order Comment: No: Do not add to previous draw Performed By: #### 29528 #### [facility] [address] [place] [address], USAALT [Catalytic activity/Vol]9 U/LNormal7-52The [facility] HospitalComment on above:Order Comment: No: Do not add to previous drawPerformed By: #### [id number] #### [facility] [address] [place] [address], USAAST [Catalytic activity/Vol]12 U/OOue70-31Hnx [facility] HospitalComment on above:Order Comment: No: Do not add to previous drawPerformed By: #### 15580 #### [facility] [address] [place] [address], USABilirubin [Mass/Vol]0.4 mg/dLNormal0.3-1.0The [facility] HospitalComment on above:Order Comment: No: Do not add to previous drawPerformed By: #### 47685 #### [facility] [address] [place] [address], USABilirubin.direct [Mass/Vol]0.1 mg/dLNormal0.0-0.2The [facility] HospitalComment on above:Order Comment: No: Do not add to previous drawPerformed By: #### 26587 #### [facility] [address] [place] [address], USAProtein [Mass/Vol]5.7 g/dLLow6.0-8.3The [facility] HospitalComment on above:Order Comment: No: Do not add to previous drawPerformed By: #### 56918 #### [facility] [address] [place] [address], USAMAGNESIUM BLOODon 42-06-1298Makjtjdby [Mass/Vol]2.1 mg/dL Normal1.9-2.7The [facility] HospitalComment on above:Order Comment: No: Do not add to previous drawPerformed By: #### [id number] #### [facility] [address] [facility] [place] [address], USAOperative Reporton [id number] ReportMR#: [id number] I [facility] Pt. Name: Meg Georges Room #: [id number] [id number] Discharge Date: Birthdate: 1965 OPERATIVE REPORT DATE OF SURGERY: 08/21/2021 SURGEON: Jerry Pozo MD Operative report: Percutaneous endoscopic gastrostomy tube placement Location: [facility] main OR Date: 08/21/2021 Preoperative diagnosis: Oropharyngeal dysphagia, nasopharyngeal erosion Postoperative diagnosis: Same Operation performed: Percutaneous endoscopic gastrostomy tube placement Surgeon: Jerry Pozo MD Soils Analyst: Garfield oBwen MD ( resident PGY 5) Estimated blood loss: 2 mL Wound classification: Clean contaminated Tubes and drains: 20 Egyptian gastrostomy tube pull type Local anesthetic: 1% lidocaine plain, 4 mL used for subcutaneous infiltration Anesthesia: General anesthesia Indication: This is a 56-year-old woman who had a prolonged hospitalization at [facility] in [place] over the last several months for COVID-related pneumonia and subsequent bacterial pneumonia complications. Patient had chronic hypoxemic respiratory failure requiring placement of tracheostomy approximately 2 weeks ago prior to transfer to LT[facility]. Patient presented to [facility] 1 day ago for acute bleeding [...] Pozo MD Date Trans: 08/21/2021 11:17 A/ LAUREN_JN:[id number] cc: Johny Beckman M.D. [address] [facility]. Emergency Medicine [facility] [address] Neri Purcell D.O. Formerly named [facility] Fernando Jasso [facility] [address]C[address]Mount [address] Mary HospitalPHOSPHORUS BLOODon 38-68-9301Zckbkifdp [Mass/Vol]2.3 mg/dLLow2.5-5.0The [facility] HospitalComment on above:Order Comment: No: Do not add to previous draw Performed By: #### 51097 #### [facility] [address] [place] [address], USAPOC GLUCOSE LABon 22-24-3036Nxzdcsz [Mass/Vol]138 mg/dLHigh 70-100The [facility] HospitalComment on above:Performed By: #### 72427 #### [facility] [address] [place] [address], USAGlucose [Mass/Vol]164 mg/xXSmmt52-744Lfb [facility] HospitalComment on above:Performed By: #### 27775 ####[facility] [place] [address], USAGlucose [Mass/Vol] 143 mg/dLUvjw92-831Sfy [facility] HospitalComment on above:Order Comment: Bleeding s/p recent tracheostomyPerformed By: #### 79392 ####[facility] [place] [address], [place] Glucose [Mass/Vol]124 mg/wWPyyj34-341Lhc [facility] Comment on above:Performed By: #### 83363 ####[facility] [place] [address], USAPORTABLE CHEST 1 VIEWon 08-21-2021 PORTABLE CHEST 1 VIEWUnMer[facility] Health [facility] Hospital Department of Radiology [address] [place] [address] Patient Name: MEG GEORGES : 1965 Sex: F Age: Race: White Pt. Location: [place] [address] Patient Status: I Ordered Date: 08/21/2021 5:00:00 [...] unchanged. Electronically signed: Yaritza Young. Transcribed by: [email or web address], User Resident: Electronically Signed by: YARITZA YOUNG @ 08/21/2021 07:38 AMNormalThe [facility] HospitalComment on above:Order Comment: R/O Atelectasis*BLOOD CULTUREon 08-20-2021*BLOOD CULTUREClinical Report: (D) Specimen: BLOOD CULTURE Collected: 08/20/2021 00:47 Status: Final Last Updated: 08/25/2021 06:53 (1) RIGHT AC @ 0045. CULT RES (Final) No Growth Day [address] [place], [place] [address]Comment on above: Order Comment: RIGHT AC @ 0045.Performed By: #### 55729 #### [facility] [address]*BLOOD CULTUREClinical Report: (D) Specimen: BLOOD CULTURE Collected: 08/20/2021 00:47 Status: Final Last Updated: 08/25/2021 06:53 (1) LEFT AC @ 0040. CULT RES (Final) No Growth Day [address] [place], [place] [address]Comment on above: Order Comment: Bleeding s/p recent tracheostomyPerformed By: #### 66365 ####[facility] APTTon 03-49-9789fRRD Coag (Bld) [Time]58.3 sHigh25.0-35.0The [facility] HospitalComment on above:Result Comment: ALL RESULTS MUST [...] BE USED FOR THIS PURPOSE.Performed By: #### 93731 #### [facility] [address] [place] [address], [facility] INDIAN MEDICAL CENTERARTERIAL BLOOD GAS WITH ICAon 65-34-8179NLOI EXCESS-2 mmol/DJzhnwk-8-0Qjs [facility] HospitalComment on above:Order Comment: RESULTS CHECKED AND CALLED. ACCURATELY READ BACK BY DR Duffyformed By: #### 53735 ####[facility] [facility] [place] [address], [facility] MEDICAL CENTERDELIVERY SYSTEMSMedina HospitalComment on above:Order Comment: RESULTS CHECKED AND CALLED. ACCURATELY READ BACK BY DR Duffyformed By: #### 73516 ####[facility] [place] [address], RRUGFY183 %NormalThe [facility] HospitalComment on above:Order Comment: RESULTS CHECKED AND CALLED. ACCURATELY READ BACK BY DR Bazzi By: #### 72548 ####[facility] [facility] [place] [address], [place] HCO3 (Bld) [Moles/Vol]20 mmol/VRnh60-99Crc [facility] Comment on above:Order Comment: RESULTS CHECKED AND CALLED. ACCURATELY READ BACK BY DR Bazzi By: #### 19578 ####[facility] [facility] [place] [address], [facility]DI[facility] MEDICAL CENTERIONIZED CALCIUM1.09 mmol/LLow 1.13-1.32The [facility] HospitalComment on above:Order Comment: RESULTS CHECKED AND CALLED. ACCURATELY READ BACK BY DR Bazzi By: #### 09338 ####[facility] [place] [address], USAMIN VOLUME8.9NoUniversity Hospitals St. John Medical CenterComment on above:Order Comment: RESULTS CHECKED AND CALLED. ACCURATELY READ BACK BY DR Bazzi By: #### 05765 ####[facility] [place] [address], USAMODALITYACNoUniversity Hospitals St. John Medical CenterComment on above:Order Comment: RESULTS CHECKED AND CALLED. ACCURATELY READ BACK BY DR Duffyformed By: #### 84913 ####[facility] [place] [address], USAOxygen (Bld) [Partial pressure]239 mm[Hg]Critically jusm41-454Vtd [facility] HospitalComsheridan community hospital on above:Order Comment: RESULTS CHECKED AND CALLED. ACCURATELY READ BACK BY DR Duffyformed By: #### 13270 ####[facility] [place] [address], USAOxygen saturation in Blood97.6 %High94.0-97.0The [facility] HospitalComment on above:Order Comment: RESULTS CHECKED AND CALLED. ACCURATELY READ BACK BY DR Duffyformed By: #### 71800 ####[facility] [place] [address], XWRECJ070 mmHgCritically wht10-07Mrl [facility] HospitalComsheridan community hospital on above:Order Comment: RESULTS CHECKED AND CALLED. ACCURATELY READ BACK BY DR Bazzi By: #### 54442 ####[facility] [place] [address], [place] PEEP8.0 [address]JuegmwUfcUniversity Hospitals St. John Medical CenterComsheridan community hospital on above:Order Comment: RESULTS CHECKED AND CALLED. ACCURATELY READ BACK BY DR CALI Performed By: #### 38593 ####[facility] [place] [address], USApH (Bld)7.52 [pH]High7.35-7.45The [facility] HospitalComment on above:Order Comment: RESULTS CHECKED AND CALLED. ACCURATELY READ BACK BY DR Bazzi By: #### 21069 ####[facility] [place] [address], USARespiratory rate14 /minNoUniversity Hospitals St. John Medical CenterComment on above:Order Comment: RESULTS CHECKED AND CALLED. ACCURATELY READ BACK BY DR Duffyformed By: #### 96868 ####[facility] [place] [address], USATIDAL VOLUME (VT) UY886NcmeabNqbUniversity Hospitals St. John Medical Center Comment on above:Order Comment: RESULTS CHECKED AND CALLED. ACCURATELY READ BACK BY DR Bazzi By: #### 10030 ####[facility] [place] [address], USABASIC METABOLIC PANELon 08-20-2021 Calcium [Mass/Vol]6.2 mg/dLCritically low8.6-10.3The [facility] HospitalComment on above:Order Comment: Check NG Tube PositionPerformed By: #### 26798, 67332, 64479, 25713 ####[facility] [place] [address], USAChloride [Moles/Vol]112 mmol/VMfkk72-421Xco [facility] HospitalComment on above:Order Comment: Check NG Tube PositionPerformed By: #### 33900, 12527, 96486, 54994 ####[facility] [place] [address], USACO2 [Moles/Vol]17 mmol/LLow 21-31The [facility] HospitalComment on above:Order Comment: Check NG Tube PositionPerformed By: #### 37032, 69261, 05921, 02319 ####[facility] [place] [address], [place] Creatinine [Mass/Vol]0.80 mg/dLNormal0.60-1.20The [facility] HospitalComment on above:Order Comment: Check NG Tube PositionPerformed By: #### 40425, 32275, 76832, 75260 ####[facility] [facility] [place] [address], USAGFR/1.73 sq M.predicted among blacks MDRD (S/P/Bld) [Vol rate/Area]mL/min/{1.73_m2}Normal>60The [facility] Comment on above:Order Comment: Check NG Tube PositionPerformed By: #### 62967, 58767, 20139, 51802 ####[facility] [place] [address], USAGFR/1.73 sq M.predicted among non-blacks MDRD (S/P/Bld) [Vol rate/Area]mL/min/{1.73_m2}Normal>60The [facility] Comment on above:Order Comment: Check NG Tube PositionPerformed By: #### 15302, 97214, 48609, 45657 ####[facility] [facility] [place] [address], [facility] MEDICAL CENTERGlucose [Mass/Vol]123 mg/iIQchg61-074Pyo [facility] HospitalComment on above:Order Comment: Check NG Tube Position Performed By: #### 47776, 70551, 51721, 80771 ####[facility] [place] [address], [facility] MEDICAL CENTERPotassium [Moles/Vol]3.1 mmol/LLow 3.5-5.1The [facility] HospitalComment on above:Order Comment: Check NG Tube PositionPerformed By: #### 17569, 85267, 81209, 18039 ####[facility] [place] [address], [place] Sodium [Moles/Vol]137 mmol/IQqgzmy740-879Ftm [facility] Comment on above:Order Comment: Check NG Tube PositionPerformed By: #### 63683, 61166, 31598, 15904 ####[facility] [place] [address], USAUrea nitrogen [Mass/Vol]31 mg/dLHigh7-25The [facility] HospitalComment on above:Order Comment: Check NG Tube Position Performed By: #### 10755, 79404, 93496, 74616 ####[facility] [facility] [place] [address], [facility]DI[facility] MEDICAL CENTERCBC W/DIFFon 78-15-2108BLI IMM GRANS0.1 10*3/uLNormal0.0-0.2The [facility] HospitalComment on above:Order Comment: Bleeding s/p recent tracheostomyPerformed By: #### 03174 ####[facility] [facility] [place] [address], [place] ABS NEUTROPHILS9.2 10*3/uLHigh1.6-7.6The [facility] Comment on above:Order Comment: Bleeding s/p recent tracheostomyPerformed By: #### 88560 ####[facility] [facility] [place] [address], USABasophils (Bld) [#/Vol]0.0 10*3/uLNormal0.0-0.2The [facility] HospitalComment on above:Order Comment: Bleeding s/p recent tracheostomyPerformed By: #### 51152 ####[facility] [place] [address], [facility] MED[facility] CENTERBasophils/100 WBC (Bld)0.3 %Normal0.0-1.0The [facility] HospitalComment on above:Order Comment: Bleeding s/p recent tracheostomyPerformed By: #### 21508 ####[facility] [place] [address], USAEosinophils (Bld) [#/Vol]0.1 10*3/uLNormal0.0-0.5The [facility] HospitalComment on above: Order Comment: Bleeding s/p recent tracheostomyPerformed By: #### 34527 ####[facility] [place] [address], [facility] Eosinophils/100 WBC (Bld)0.4 %Normal0.0-6.0The [facility] HospitalComment on above:Order Comment: Bleeding s/p recent tracheostomyPerformed By: #### 12007 ####[facility] [place] [address], [facility] MEDICAL CENTERErythrocyte distribution width (RBC) [Ratio]17.2 %High11.5-15.0The [facility] HospitalComment on above:Order Comment: Bleeding s/p recent tracheostomyPerformed By: #### 81872 ####[facility] [place] [address], [facility] MEDICAL CENTERHematocrit (Bld) [Volume fraction] 23.9 %Low36.0-45.0The [facility] HospitalComment on above:Order Comment: Bleeding s/p recent tracheostomyPerformed By: #### 33937 ####[facility] [place] [address], [facility] MEDICAL CENTERHemoglobin (Bld) [Mass/Vol]8.1 g/dLLow12.0-15.0The [facility] HospitalComment on above:Order Comment: Bleeding s/p recent tracheostomyPerformed By: #### 90255 ####[facility] [place] [address], [facility] IMMATURE GRANS0.6 %Normal0.0-1.0The [facility] HospitalComment on above:Order Comment: Bleeding s/p recent tracheostomyPerformed By: #### 47544 ####[facility] [place] [address], [facility] Lymphocytes (Bld) [#/Vol]3.3 10*3/uLNormal1.2-4.0The [facility] HospitalComment on above:Order Comment: Bleeding s/p recent tracheostomy Performed By: #### 88235 ####[facility] [facility] [place] [address], [facility] MEDICAL CENTERLymphocytes/100 WBC (Bld)24.4 %Cirxqy08.0-45.0The [facility] HospitalComment on above:Order Comment: Bleeding s/p recent tracheostomyPerformed By: #### 18434 ####[facility] [facility] [place] [address], [facility] GUTHRIEH (RBC) [Entitic mass]30.6 pg Llrcac98.0-33.0The [facility] HospitalComment on above:Order Comment: Bleeding s/p recent tracheostomyPerformed By: #### 61566 ####[facility] [facility] [place] [address], [facility] MEDICAL CENTERMCHC (RBC) [Mass/Vol]33.9 g/xBQkwmhf30.0-35.0The [facility] HospitalComment on above:Order Comment: Bleeding s/p recent tracheostomyPerformed By: #### 81211 ####[facility] [facility] [place] [address], [facility] MEDICAL CENTERMCV (RBC) [Entitic vol]90.2 nOXcpjjm94.0-98.0The [facility] HospitalComment on above:Order Comment: Bleeding s/p recent tracheostomy Performed By: #### 01312 ####[facility] [facility] [place] [address], USAMonocytes (Bld) [#/Vol]1.0 10*3/uLNormal0.1-1.0The [facility] HospitalComment on above:Order Comment: Bleeding s/p recent tracheostomyPerformed By: #### 65221 ####[facility] [place] [address], USAMONOS7.2 %Normal5.0-12.0The [facility] HospitalComment on above:Order Comment: Bleeding s/p recent tracheostomyPerformed By: #### 32189 ####[facility] [place] [address], USANeutrophils/100 WBC (Bld)67.1 % Anazti29.0-72.0The [facility] HospitalComment on above:Order Comment: Bleeding s/p recent tracheostomyPerformed By: #### 34149 ####[facility] [place] [address], USANucleated RBC/100 WBC (Bld) [Ratio]0 %Normal0-0The [facility] Comment on above:Order Comment: Bleeding s/p recent tracheostomyPerformed By: #### 05583 ####[facility] [facility] [place] [address], USAPLAT NMZ801 10*3/mUTssmwh134-565Zbh [facility] HospitalComment on above:Order Comment: Bleeding s/p recent tracheostomyPerformed By: #### 42809 ####[facility] [facility] [place] [address], USARBC (Bld) [#/Vol]2.65 10*6/uLLow3.80-5.00The [facility] HospitalComment on above:Order Comment: Bleeding s/p recent tracheostomy Performed By: #### 34973 ####[facility] [place] [address], USAWBC (Bld) [#/Vol]13.67 10*3/uLHigh4.00-10.60The [facility] HospitalComment on above:Order Comment: Bleeding s/p recent tracheostomyPerformed By: #### 59495 ####[facility] [place] [address], USAABS IMM GRANS0.2 10*3/uLNormal 0.0-0.2The [facility] HospitalComment on above:Performed By: #### 95325 ####[facility] [facility] [place] [address], [facility] CENTERABS ECORVUDFCKW75.9 10*3/uLHigh1.6-7.6The [facility] HospitalComment on above:Performed By: #### 21385 ####[facility] [facility] [place] [place] [address], [facility] MEDICAL CENTERBasophils (Bld) [#/Vol]0.1 10*3/uLNormal0.0-0.2The [facility] HospitalComment on above: Performed By: #### 53332 ####[address] [place] [place] [address], [facility] CENTERBasophils/100 WBC (Bld)0.4 %Normal0.0-1.0The [facility] HospitalComment on above:Performed By: #### 42111 ####[facility] [facility] [place] [address], [facility] Eosinophils (Bld) [#/Vol]0.4 10*3/uLNormal0.0-0.5The [facility] HospitalComment on above:Performed By: #### 75856 ####[place] [address] [facility] [place] [address], [facility] CENTEREosinophils/100 WBC (Bld) 1.7 %Normal0.0-6.0The [facility] HospitalComment on above: Performed By: #### 31445 ####[address] [place] [address], [facility] MEDICAL CENTERErythrocyte distribution width (RBC) [Ratio]17.4 %High 11.5-15.0The [facility] HospitalComment on above:Performed By: #### 61908 ####[address] [place] [place] [address], USAHematocrit (Bld) [Volume fraction]25.5 %Low36.0-45.0The [facility] HospitalComment on above:Performed By: #### [address] ####[place] [address], [facility] MEDICAL CENTERHemoglobin (Bld) [Mass/Vol]8.1 g/dLLow12.0-15.0The [facility] HospitalComment on above:Performed By: #### [address]9816 ####[place] [address], [facility] MEDICAL CENTERIMMATURE GRANS0.8 %Normal0.0-1.0The [facility] HospitalComment on above:Performed By: #### 44453 ####[place] [address], [facility] Lymphocytes (Bld) [#/Vol]2.8 10*3/uLNormal1.2-4.0The [facility] HospitalComment on above:Performed By: #### 89933 ####[place] [address], [facility] MEDICAL CENTERLymphocytes/100 WBC (Bld) 11.7 %Low20.0-45.0The [facility] HospitalComment on above: Performed By: #### 83851 ####[address] [place] [address], [facility] MEDICAL CENTERMCH (RBC) [Entitic mass]31.5 kaXgnkmt33.0-33.0The [facility] HospitalComment on above:Performed By: #### 45585 ####[address] [place] [place] [address], [facility] MCHC (RBC) [Mass/Vol]31.8 g/dLLow32.0-35.0The [facility] HospitalComment on above:Performed By: #### 64180 ####[address] [place] [address], USAMCV (RBC) [Entitic vol]99.2 fL High82.0-98.0The [facility] Union HospitalComment on above:Performed By: #### 21864 ####[address] [place] [address], USAMonocytes (Bld) [#/Vol]1.5 10*3/uLHigh0.1-1.0The [facility] Union HospitalComment on above:Performed By: #### 69323 ####[address] [place] [address], USAMONOS6.2 %Normal 5.0-12.0The [facility] Union HospitalComment on above:Performed By: #### 69189 ####[address] [place] [address], USANeutrophils/100 WBC (Bld)79.2 %High40.0-72.0The [facility] HospitalComment on above:Performed By: #### 40730 ####[address] [place] [address], USANucleated RBC/100 WBC (Bld) [Ratio]0 %Normal0-0The [facility] HospitalComment on above:Performed By: #### 09181 ####[address] [place] [address], USAPLAT [id number] 10*3/bLCbof093-028Wof [facility] HospitalComment on above:Performed By: #### 11414 ####[address] [place] [address], USARBC (Bld) [#/Vol]2.57 10*6/uLLow3.80-5.00The [facility] HospitalComment on above:Performed By: #### 18360 ####[address] [place] [address], USAWBC (Bld) [#/Vol]23.85 10*3/uLHigh4.00-10.60 The [facility] Union HospitalComment on above:Performed By: #### 06186 ####[facility] [place], [place] [address] [address], [place] COMP METABOLIC PANELon 37-37-8903Uohulnw [Mass/Vol]2.5 g/dLLow3.5-5.7The [facility] HospitalComment on above:Performed By: #### 38216, 46143 ####[place] [address] [facility] [place] [address], [facility] MED[facility] CENTERALKALINE [id number] IU/YNkfi75-518Dsc [facility] HospitalComment on above:Performed By: #### 23510, 39413 ####[address] [place] [address], USAALT [Catalytic activity/Vol]14 U/LNormal7-52The [facility] HospitalComment on above:Performed By: #### 67525, 67498 ####[address] [place] [address], USAAST [Catalytic activity/Vol]21 U/L Ugtupj81-84Scg [facility] HospitalComment on above:Performed By: #### 98251, 58866 ####[facility] [place] [address], USABilirubin [Mass/Vol]0.6 mg/dLNormal0.3-1.0The [facility] HospitalComment on above:Performed By: #### 96288, 30713 ####[address] [place] [address], USACalcium [Mass/Vol]8.0 mg/dLLow8.6-10.3The [facility] HospitalComment on above:Performed By: #### 59716, 62565 ####[facility] [place] [address], USAChloride [Moles/Vol]101 mmol/UXxmlec72-105Bdu [facility] HospitalComment on above: Performed By: #### 14132, 67802 ####[facility] [place] [address], USACO2 [Moles/Vol]21 mmol/BKtuzgr31-78Bzs [facility] HospitalComment on above:Performed By: #### 40455, 78765 ####[facility] [facility] [place] [address], USACreatinine [Mass/Vol]0.99 mg/dLNormal0.60-1.20The [facility] HospitalComment on above:Performed By: #### 93299, 98034 ####[facility] [facility] [place] [address], USAeGFR- non- Fnlbzxdp27 ml/min/1.73sq mAbnormal>60The [facility] HospitalComment on above:Performed By: #### 34931, 33675 ####[facility] [facility] [place] [address], USAGFR/1.73 sq M.predicted among blacks MDRD (S/P/Bld) [Vol rate/Area]mL/min/{1.73_m2}Normal>60The [facility] HospitalComment on above:Performed By: #### 52318, 41660 ####[facility] [place] [address], USAGlucose [Mass/Vol]280 mg/zMQsjq58-840Nvi [facility] HospitalComment on above:Performed By: #### 51588, 32212 ####[facility] [place] [address], USAPotassium [Moles/Vol]4.1 mmol/LNormal3.5-5.1The [facility] HospitalComment on above: Performed By: #### 71862, 61621 ####[facility] [place] [address], USAProtein [Mass/Vol]6.5 g/dLNormal6.0-8.3The [facility] HospitalComment on above:Performed By: #### 49249, 59119 ####[facility] [place] [address], USASodium [Moles/Vol]134 mmol/NHtn286-630Lal [facility] HospitalComment on above:Performed By: #### 43514, 94377 ####[facility] [place] [address], USAUrea nitrogen [Mass/Vol] 32 mg/dLHigh7-25The [facility] HospitalComment on above: Performed By: #### 51324, 15115 ####[facility] [place] [address], USACTA CHESTon [id number] CHESTCleveland Clinic Union Hospital Department of Radiology [address] [place] [phone] Patient Name: MEG GEORGES : 1965 Sex: F Age: Race: White Pt. Location: [facility] Patient Status: I Ordered Date: 08/19/2021 [...] 3. No pulmonary embolism. Approved by:Olga Lidia Willis08/20/2021 12:32 AM. I, Charles Castillo,have reviewed the image(s) and agree with the findings in this report. Electronically signed: Charles Castillo. Transcribed by: [email or web address], User Resident: OLGA LIDIA WILLIS Electronically Signed by: CHARLES CASTILLO @ 08/20/2021 12:54 AM I personally read this/these film(s) with this residentMount St. Mary HospitalComment on above:Order Comment: R/O AtelectasisCTA NECKon 21-16-5081CCN [facility] Department of Radiology [address] [place] [phone] Patient Name: MEG GEORGES : 1965 Sex: F Age: Race: White Pt. Location: [facility] Patient Status: I Ordered Date: 08/19/2021 [...] report. Electronically signed: Charles Castillo. Transcribed by: [id number], User Resident: OLGA LIDIA WILLIS Electronically Signed by: CHARLES CASTILLO @ 08/20/2021 12:51 AM I personally read this/these film(s) with this [facility] Health AdministrationComment on above:Order Comment: Bleeding s/p recent tracheostomyEndoscopy Reporton [id number] ReportMR#: [id number] [facility] Pt. Name: Meg Georges Surgery Date: 08/20/2021 Room #: [facility] [id number] Date of : 1965 PROCEDURE NOTE ATTENDING: [...] Pozo M.D. Date Trans: 08/20/2021 05:17 P/ DN_JN:[id number] cc: Johny Beckman M.D. [address] [place] [address]. Emergency Medicine [facility] [address] Ian Shields [facility] Fernando yCarrol [facility] 59357HzttqpBnrMount St. Mary HospitalFIBRIN DEGRADATION PRODUCTon 98-55-0148FNY6 ug/mlAbnormal<5 ug/mlThe [facility] HospitalComment on above:Order Comment: No: Do not add to previous drawPerformed By: #### 85299 #### [facility] [address] [facility] [place] [address], USAFIBRINOGENon 95-68-5962QUGQVMGZSW440 mg/qMFpzg971-628JpmPike Community HospitalComment on above:Performed By: #### 46776 #### [facility] [address] [facility] [place] [address], [facility] MEDICAL CENTERFRESH FROZEN PLASMA 6 UNITSon 69-35-1500DFOSHXB CODE [id number] NormalPike Community HospitalComment on above:Performed By: #### 14701 ####[facility] [facility] [place] [address], USAPRODUCT CODE [id number] St. Mary Hospital Comment on above:Performed By: #### 35845 ####[facility] [facility] [place] [address], USAPRODUCT CODE [id number] St. Mary HospitalComment on above:Performed By: #### 78616 ####[facility] [facility] [place] [address], [place] PRODUCT CODE [id number] Hospitals St. John Medical CenterComment on above:Performed By: #### 99287 ####[facility] [facility] [place] [address], USAPRODUCT CODE [id number] Hospitals St. John Medical CenterComment on above:Performed By: #### 94012 ####[facility] [facility] [place] [address], USAPRODUCT CODE [id number] [address] John Medical CenterComment on above:Performed By: #### 20559 ####[facility] [facility] [place] [address], USAPRODUCT STATUS 1PTMount St. Mary Hospital Comment on above:Result Comment: Result changed by IF on 08/20/2021 13:26. The previous value was XM. Result changed by IF on 08/21/2021 00:30. The previous value was IS.Performed By: #### 34781 ####[facility] [place] [address], USAPRODUCT STATUS 2RAdena Pike Medical Center Comment on above:Result Comment: Result changed by IF on 08/20/2021 05:09. The previous value was XM. Result changed by IF on 08/20/2021 05:16. The previous value was XX.Performed By: #### 39027 ####[facility] [place] [address], USAPRODUCT STATUS 3RAdena Pike Medical Center Comment on above:Result Comment: Result changed by IF on 08/20/2021 05:24. The previous value was XM. Result changed by IF on 08/20/2021 05:48. The previous value was XX.Performed By: #### 56990 ####[facility] [place] [address], USAPRODUCT STATUS 4RAdena Pike Medical Center Comment on above:Result Comment: Result changed by IF on 08/22/2021 16:50. The previous value was XM. Result changed by IF on 08/25/2021 01:00. The previous value was XX.Performed By: #### 50432 ####[facility] [place] [address], USAPRODUCT STATUS [address] [place] [address] Comment on above:Result Comment: Result changed by IF on 08/20/2021 05:24. The previous value was XM. Result changed by IF on 08/20/2021 05:48. The previous value was XX.Performed By: #### 75536 ####[facility] [place] [address], USAPRODUCT STATUS [address] [place] [address] Comment on above:Result Comment: Result changed by IF on 08/20/2021 05:24. The previous value was XM. Result changed by IF on 08/20/2021 05:48. The previous value was XX.Performed By: #### 47666 ####[facility] [place] [address], USAUNIT ABO 1ANoUniversity Hospitals St. John Medical CenterComment on above:Performed By: #### 56519 ####[facility] [place] [address], USAPerformed By: #### 07270 ####[facility] [place] [address], USAUNIT ABO 2ANormal [facility]ike Community HospitalComment on above:Performed By: #### 48477 ####[facility] [place] [address], [place] UNIT ABO 3ANoUniversity Hospitals St. John Medical CenterComment on above: Performed By: #### 79902 ####[facility] [place] [address], USAUNIT ABO 4ANoUniversity Hospitals St. John Medical CenterComment on above:Performed By: #### 23924 ####[facility] [place] [address], USAUNIT ABO 5ANoUniversity Hospitals St. John Medical CenterComment on above:Performed By: #### 90164 ####[facility] [place] [address], USAUNIT ABO 6A Mount St. Mary HospitalComment on above:Performed By: #### 62633 ####[facility] [place] [address], USAUNIT ID [id number] Health [facility] Comment on above:Performed By: #### 48522 ####[facility] [place] [address], USAUNIT ID [id number]-[id number] HospitalComment on above:Performed By: #### 19157 ####[facility] [place] [address], [facility] UNIT ID [id number]-*NormalPike Community HospitalComment on above:Performed By: #### 14223 ####[facility] [place] [address], USAUNIT ID [id number]-[id number] Community HospitalComment on above:Performed By: #### 62681 ####[facility] [place] [address], USAUNIT ID 5 [id number] Community HospitalComment on above: Performed By: #### 91893 ####[facility] [place] [address], USAUNIT ID [id number]-ZPdnudeSqsPike Community HospitalComment on above:Performed By: #### 39565 ####[facility] [place] [address], USAUNIT RH 1PositiveNormal Pike Community HospitalComment on above:Performed By: #### 42035 ####[facility] [place] [address], [facility] Performed By: #### 21834 ####[facility] [place] [address], USAUNIT RH 2PositiveNormLancaster Municipal HospitalComment on above:Performed By: #### 24798 ####[facility] [place] [address], USAUNIT RH 3PositiveNormLancaster Municipal HospitalComment on above:Performed By: #### 44573 ####[facility] [place] [address], [place] UNIT RH 4PositiveNoUniversity Hospitals St. John Medical CenterComment on above: Performed By: #### 52169 ####[facility] [place] [address], USAUNIT RH 5PositiveNoUniversity Hospitals St. John Medical CenterComment on above:Performed By: #### 98778 ####[facility] [facility] [place] [address], USAUNIT RH 6PositiveNoUniversity Hospitals St. John Medical CenterComment on above:Performed By: #### 34622 ####[facility] [facility] [place] [address], [facility] LACTATE BLOODon 27-79-3425Szmgdzc [Moles/Vol]1.3 mmol/LNormal.5-2.2The [facility] HospitalComment on above:Performed By: #### 49596 #### [facility] [address] [place] [address], USALIVER BATTERYon 35-27-2477Siiwvao [Mass/Vol]1.8 g/dLLow 3.5-5.7The [facility] HospitalComment on above:Order Comment: Check NG Tube PositionPerformed By: #### 60633, 33355, 82208, 13169 ####[facility] [facility].[place] [address], [facility] ALKALINE [id number] IU/EObdj82-247Dwa [facility] HospitalComment on above:Order Comment: Check NG Tube PositionPerformed By: #### 21445, 95566, 32551, 55011 ####[facility] [place] [address], [facility] CENTERALT [Catalytic activity/Vol]10 U/LNormal7-52The [facility] HospitalComment on above:Order Comment: Check NG Tube PositionPerformed By: #### 54614, 34004, 71036, 35345 ####[facility] [facility] [place] [address], USAAST [Catalytic activity/Vol]12 U/WTnv49-02Awe [facility] HospitalComment on above:Order Comment: Check NG Tube PositionPerformed By: #### 67830, 15799, 23745, 27518 ####[facility] [place], [place] [address] [address], USABilirubin [Mass/Vol]0.4 mg/dLNormal0.3-1.0The [facility] HospitalComment on above:Order Comment: Check NG Tube PositionPerformed By: #### 95483, 61171, 46019, 61535 ####[address] [place] [address], [place] Bilirubin.direct [Mass/Vol]0.1 mg/dLNormal0.0-0.2The [facility] HospitalComment on above:Order Comment: Check NG Tube PositionPerformed By: #### 05432, 86285, 60906, 39237 ####[address] [place] [address], USAProtein [Mass/Vol]4.6 g/dLLow6.0-8.3The [facility] HospitalComment on above:Order Comment: Check NG Tube PositionPerformed By: #### 49485, 43052, 31886, 24057 ####[address] [place] [address], USAMAGNESIUM BLOODon 70-44-9810Zcgqgudcu [Mass/Vol]1.4 mg/dLLow1.9-2.7The [facility] HospitalComment on above:Order Comment: Check NG Tube PositionPerformed By: #### 10886, 37033, 37365, 27660 ####[facility] [place] [address].[place] [address], USAOSMOLALITY BLOODon 13-57-1162Ksrfudghsk [Osmolality]309 mosm/zfHdne607-619Lfr [facility] HospitalComment on above:Order Comment: No: Do not add to previous drawPerformed By: #### 38410 #### [facility] [address] [address], [facility] CENTERPHOSPHORUS BLOODon 95-88-0673Eqkngmfyz [Mass/Vol]2.4 mg/dL Low2.5-5.0The [facility] HospitalComment on above:Order Comment: Check NG Tube PositionPerformed By: #### 83495, 42406, 90202, 08199 ####[facility] [facility] [place] [address], [facility] PLATELET APHERESIS 1 UNITon 93-45-0107WPZYSUO CODE [id number] Municipal HospitalComment on above:Performed By: #### 37866 ####[facility] [place] [address], [facility] CENTERUNIT ID 1 [id number] [facility] HospitalComment on above: Performed By: #### 68276 ####[facility] [facility] [place] [address], [facility]DI[facility] MEDICAL CENTERPRODUCT STATUS [address] [place], [place] [address]Comment on above:Result Comment: Result changed by IF on 08/21/2021 01:00. The previous value was XM.Performed By: #### 11550 ####[facility] [facility] [place] [address], [facility] Result Comment: Result changed by IF on 08/21/2021 08:54. The previous value was XM. Result changed by IF on 08/21/2021 18:31. The previous value was XX.Performed By: #### 51268 ####[facility] [facility] [place] [address], [facility] MED[facility] CENTERPOC GLUCOSE LABon 94-49-2726Zhblspf [Mass/Vol]118 mg/uAEvps63-168 The [facility] HospitalComment on above:Performed By: #### 32917 ####[facility] [place] [address], [facility] Glucose [Mass/Vol]142 mg/lTFdlv74-901Boo [facility] Comment on above:Performed By: #### 73428 ####[facility] [place] [address], USAGlucose [Mass/Vol]160 mg/dLHigh 70-100The [facility] HospitalComment on above:Performed By: #### 70336 ####[facility] [facility] [place] [place] [address], USAGlucose [Mass/Vol]177 mg/pFXjyo12-825Huv [facility] HospitalComment on above:Performed By: #### 68974 ####[facility] [facility] [place] [place] [address], USAPOC SARS COV2 ANTIGEN NEGATIVEon 52-19-8522GZH SARS COV2 ANTIGEN NEGNegativeNormalNEGATIVEThe [facility] HospitalComment on above:Result Comment: Negative results should [...] antigen from SARS-CoV-2 in direct nasopharyngeal swab (GRINDING SUPERVISOR) specimens from individuals who are suspected of [...] Compliance, or Certificate of Accreditation.Performed By: #### 99876 #### [facility] [address] [facility] [place] [address], USAPORTABLE CHEST 1 VIEWon 44-11-9577PEPGEHQC CHEST 1 VIEW [facility] Department of Radiology [address] [place] [address] Patient Name: MEG GEORGES : 1965 Sex: F Age: Race: White Pt. Location: [place] [address] Patient Status: I Ordered Date: 08/20/2021 5:20:00 [...] FINDINGS: Enteric tube tip outside the inferior vanbx-ah-xqgt, presumably within the stomach. Stable tracheostomy cannula. Stable cardiomediastinal silhouette. No new focal consolidation, significant effusion, or pneumothorax. Right upper extremity PICC, its tip at the mid SVC. IMPRESSION: Enteric tube tip likely within the stomach, outside the inferior vxssq-qx-tnnu however Electronically signed: KIKE DICKSON. Transcribed by: [email or web address], User Resident: Electronically Signed by: KIKE DICKSON @ 08/20/2021 07:46 PMNormalThe [facility] HospitalComment on above:Order Comment: Check NG Tube PositionPORTABLE CHEST 1 VIEWUnMer[facility] Health [facility] Department of Radiology [address] [place] [phone] Patient Name: MEG GEORGES : 1965 Sex: F Age: Race: White Pt. Location: [place] [address] Patient Status: I Ordered Date: 08/20/2021 7:50:00 [...] indeterminate. Electronically signed: Blossom Gongora. Transcribed by: [id number], User Resident: BLOSSOM GONGORA Electronically Signed by: BLOSSOM GONGORA @ 08/20/2021 09:10 AM I personally read this/these film(s) with this residentNoUniversity Hospitals St. John Medical CenterComment on above:Order Comment: evaluate for Atelectasis PORTABLE CHEST 1 VIEWUnMercy Health [facility] Department of Radiology [address] [place] [phone] Patient Name: MEG GEORGES : 1965 Sex: F Age: Race: White Pt. Location: [facility] Patient Status: E Ordered Date: 08/19/2021 [...] abnormality. Electronically signed: Darci Monahan. Transcribed by: [id number], User Resident: Electronically Signed by: DARCI MONAHAN @ 08/19/2021 10:41 PMNormalThe [facility] HospitalComment on above:Order Comment: Check NG Tube Position PROTHROMBIN TIMEon 41-10-6674NJI Coag (PPP) [Relative time]1.70 {INR}High 0.91-1.16The [facility] HospitalComment on above:Order Comment: Check NG Tube PositionResult Comment: [facility] RECOMMENDED INR FOR WARFARIN THERAPY ------- CONDITION [...] OPTIMAL THERAPEUTIC RANGE. CHEST 1995;108:231S-246S.Performed By: #### 58642 ####[facility] [facility] [place] [address], USAPT Coag (PPP) [Time]19.7 sHigh 12.3-14.8The [facility] HospitalComment on above:Order Comment: Check NG Tube PositionResult Comment: ALL RESULTS MUST BE INTERPRETED WITH RESPECT TO BLOOD DRAWING ARTIFACT OR DILUTION ERROR OF ANTICOAGULANT AT THE TIME OF SAMPLING.Performed By: #### 58375 ####[facility] [facility] [place] [address], USAINR Coag (PPP) [Relative time]1.47 {INR}High0.91-1.16The [facility] HospitalComment on above:Result Comment: [facility] RECOMMENDED INR [...] OPTIMAL THERAPEUTIC RANGE. CHEST 1995;108:231S-246S.Performed By: #### 34507, 96205, 97776, 16855 ####[facility] [facility] [place] [address], [facility] CENTERPT Coag (PPP) [Time]17.7 sHigh12.3-14.8The [facility] HospitalComment on above:Result Comment: ALL RESULTS MUST BE INTERPRETED WITH RESPECT TO BLOOD DRAWING ARTIFACT OR DILUTION ERROR OF ANTICOAGULANT AT THE TIME OF SAMPLING.Performed By: #### 56140, 21451, 34715, 01668 ####[facility] [facility] [place] [address], [facility] CENTERRBC'S 6 UNITSon 48-67-0202BTLBQVYPRD INTERP 1COMPNormal Pike Community HospitalComment on above:Performed By: #### 58106 ####[facility] [place] [address], [place] CROSSMATCH INTERP 2COMPNormalThe [facility] HospitalComment on above:Performed By: #### [id number] ####[facility] [place] [address], USACROSSMATCH INTERP 3COMPMount St. Mary HospitalComment on above:Performed By: #### [id number] ####[facility] [place] [address], USACROSSMATCH INTERP 4COMPMount St. Mary HospitalComment on above: Performed By: #### [id number] ####[facility] [place] [address], USACROSSMATCH INTERP 5COMPMount St. Mary HospitalComment on above:Performed By: #### [id number] ####[facility] [facility] [place] [address], USACROSSMATCH INTERP 6COMP [facility] St. Mary HospitalComment on above:Performed By: #### [id number] ####[facility] [facility] [place] [address], USAPRODUCT CODE [id number] Hospitals St. [facility] Comment on above:Performed By: #### [id number] ####[facility] [facility] [place] [address], USAPRODUCT CODE [id number] Hospitals St. John Medical CenterComment on above:Performed By: #### [id number] ####[facility] [facility] [place] [address], [place] PRODUCT CODE [id number] Hospitals St. John Medical CenterComment on above:Performed By: #### [id number] ####[facility] [facility] [place] [address], USAPRODUCT CODE [id number] St. Mary HospitalComment on above:Performed By: #### [id number] ####[facility] [facility] [place] [address], USAPRODUCT CODE [id number] Mary HospitalComment on above:Performed By: #### [id number] ####[facility] [place] [address], USAPRODUCT CODE [id number] St. Mary Hospital Comment on above:Performed By: #### [id number] ####[facility] [place] [address], USAPRODUCT STATUS 2RAdena Pike Medical CenterComment on above:Result Comment: Result changed by IF on 08/20/2021 05:40. The previous value was XM. Result changed by IF on 08/20/2021 05:48. The previous value was XX.Performed By: #### [id number] ####[facility] [place] [address], USAPRODUCT STATUS 3RAdena Pike Medical Center Comment on above:Result Comment: Result changed by IF on 08/22/2021 01:00. The previous value was XM.Performed By: #### [id number] ####[facility] [place] [address], USAPRODUCT STATUS 4RAdena Pike Medical CenterComment on above:Result Comment: Result changed by IF on 08/20/2021 05:40. The previous value was XM. Result changed by IF on 08/20/2021 05:48. The previous value was XX.Performed By: #### [id number] ####[facility] [place] [address], USAPRODUCT STATUS 5[facility] Comment on above:Result Comment: Result changed by IF on 08/22/2021 01:00. The previous value was XM.Performed By: #### [id number] ####[facility] [place] [address], USAPRODUCT STATUS 6RAdena Pike Medical CenterComment on above:Result Comment: Result changed by IF on 08/21/2021 08:54. The previous value was XM. Result changed by IF on 08/22/2021 01:00. The previous value was XX.Performed By: #### [id number] ####[facility] [place] [address], USAUNIT ABO 1AMount St. Mary HospitalComment on above:Performed By: #### [id number] ####[facility] [place] [address], USAUNIT ABO 2AMount St. Mary HospitalComment on above:Performed By: #### [id number] ####[facility] [facility] [place] [address], USAUNIT ABO 3AMount St. Mary HospitalComment on above:Performed By: #### [id number] ####[facility] [facility] [place] [address], [place] UNIT ABO 4AMount St. Mary HospitalComment on above: Performed By: #### [id number] ####[facility] [facility] [place] [address], USAUNIT ABO 5AMount St. Mary HospitalComment on above:Performed By: #### [id number] ####[facility] [facility] [place] [address], USAUNIT ABO 6AMount St. Mary HospitalComment on above:Performed By: #### [id number] ####[facility] [place] [address].[place] [address], USAUNIT ID 1 [id number] Community HospitalComment on above: Performed By: #### [id number] ####[facility] [place] [address], USAUNIT ID [id number] Community HospitalComment on above:Performed By: #### [id number] ####[facility] [place] [address], USAUNIT ID [id number] NormalPike Community HospitalComment on above:Performed By: #### [id number] ####[facility] [place] [address], USAUNIT ID [id number]-[id number] [facility] Comment on above:Performed By: #### [id number] ####[facility] [place] [address], USAUNIT ID [id number]-JBypruxZahPike Community HospitalComment on above:Performed By: #### [id number] ####[facility] [place] [address], [place] UNIT ID [id number]-OVzparmGboPike Community HospitalComment on above:Performed By: #### [id number] ####[facility] [place] [address], USAUNIT RH 1PositiveNoUniversity Hospitals St. John Medical CenterComment on above:Performed By: #### [id number] ####[facility] [place] [address], USAUNIT RH 2Positive NormalThe [facility] Clinic Union HospitalComment on above:Performed By: #### [id number] ####[facility] [place] [address], USAUNIT RH 3PositiveNormLancaster Municipal HospitalComment on above:Performed By: #### [id number] ####[facility] [place] [address], USAUNIT RH 4PositiveNormLancaster Municipal HospitalComment on above:Performed By: #### [id number] ####[facility] [place] [address], USAUNIT RH 5Positive NormalThe [facility] HospitalComment on above:Performed By: #### [id number] ####[facility] [place] [address], USAUNIT RH 6PositiveNoUniversity Hospitals St. John Medical CenterComment on above:Performed By: #### [id number] ####[facility] [place] [address], USATRIGLYCERIDES BLOODon 74-54-1439Bvuwlfncysrx [Mass/Vol]147 mg/cNDrsqvu28-684Ckj [facility] HospitalComment on above:Order Comment: No: Do not add to previous drawResult Comment: TRIGLYCERIDE REFERENCE RANGE: 20 YEARS AND OLDER CARDIOVASCULAR RISK LESS THAN 150 mg/dl LOW RISK 150 TO 199 mg/dl BORDERLINE RISK 200 mg/dl AND GREATER HIGH RISKPerformed By: #### [id number] #### [facility] [address] [place] [address], USATROPONIN-Ion 72-07-6541Ojwzanku I.cardiac [Mass/Vol]0.03 ng/mLNormal0.00-0.04The [facility] HospitalComment on above: Result Comment: REFERENCE RANGES: 0.00 - 0.04 ng/ml NORMAL 0.05 - 0.50 ng/ml INDETERMINATE > 0.50 ng/ml CONSISTENT WITH AN M.I.Performed By: #### [id number], [id number] ####[facility] [facility] [place] [address], [place] TYPE AND CROSSMATCHon 37-24-6951FBS INTERPRETATIONANoUniversity Hospitals St. John Medical CenterComment on above:Performed By: #### [id number] #### [facility] [address] [place] [address], USARH INTERPRETATIONPositiveMount St. Mary HospitalComment on above:Performed By: #### [id number] #### [facility] [address] [place] [address], [facility] CENTERrb emergency releaseon 22-00-0021XWTYSMRCBQ INTERP 1COMP NormalPike Community HospitalComment on above:Performed By: #### RBCER ####[facility] [place] [address], USACROSSMATCH INTERP 2COMPNoUniversity Hospitals St. [facility] Medical Center Comment on above:Result Comment: This result added by IF on 08/20/2021 02:44. Performed By: #### RBCER ####[facility] [place] [address], USACROSSMATCH INTERP 3COMPMount St. Mary HospitalComment on above:Result Comment: This result added by IF on 08/20/2021 02:44.Performed By: #### RBCER ####[facility] [place] [address], [facility] MEDICAL CENTERPRODUCT CODE [id number] Hospitals St. John Medical CenterComment on above:Performed By: #### RBCER ####[facility] [place] [address], [facility] PRODUCT CODE [id number] Hospitals St. John Medical CenterComment on above:Performed By: #### RBCER ####[facility] [place] [address], [facility] MEDICAL CENTERPRODUCT CODE [id number] Hospitals St. John Medical CenterComment on above:Performed By: #### RBCER ####[facility] [place] [address], [facility] MEDICAL CENTERPRODUCT STATUS 1PT NormalThe [facility] Clinic [facility] HospitalComment on above:Result Comment: Result changed by IF on 08/20/2021 02:42. The previous value was EI. Result changed by IF on 08/21/2021 00:30. The previous value was PI.Performed By: #### RBCER ####[facility] [place] [address], USAPRODUCT STATUS 2PEast [facility] Comment on above:Result Comment: Result changed by IF on 08/20/2021 02:44. The previous value was EI. Result changed by IF on 08/21/2021 00:30. The previous value was PI.Performed By: #### RBCER ####[facility] [place] [address], USAPRODUCT STATUS 3PEast [facility] Comment on above:Result Comment: Result changed by IF on 08/20/2021 02:44. The previous value was EI. Result changed by IF on 08/21/2021 00:30. The previous value was PI.Performed By: #### RBCER ####[facility] [place] [address], USAUNIT ABO 1[facility] - TrumbullComment on above:Performed By: #### RBCER ####[facility] [place] [address], USAUNIT ABO 2[facility] - TrumbullComment on above:Performed By: #### RBCER ####[facility] [place] [address], USAUNIT ABO 3[facility] - TrumbullComment on above:Performed By: #### RBCER ####[facility] [place] [address], [place] UNIT ID [id number]-HZzjvutMpjPomerene HospitalComment on above:Performed By: #### RBCER ####[facility] [place] [address], USAUNIT ID [id number] [place], [place] [address]Comment on above:Performed By: #### RBCER ####[facility] [place] [address], USAUNIT ID 3 [id number] Hospitals St. John Medical CenterComment on above: Performed By: #### RBCER ####[facility] [place] [address], USAUNIT RH 1NegaOhio State Health SystemComment on above:Performed By: #### RBCER ####[facility] [place] [address], USAUNIT RH 2NegaOhio State Health SystemComment on above:Performed By: #### RBCER ####[facility] [place] [address], [place] UNIT RH 3NegativeMount St. Mary HospitalComment on above: Performed By: #### RBCER ####[facility] [place] [address], USACT BRAIN WO CONTRAST [id number] BRAIN WO CONTRAST [facility] Department of Radiology [address] [place] [id number] Patient Name: MEG GEORGES : 1965 Sex: F Age: Race: White Pt. Location: [facility] Patient Status: Ordered Date: 08/15/2021 12:05:00 PM Completed Date: 08/15/2021 04:06 PM Requesting Provider: GANGA SAAVGE Attending Provider: Report Copy To: Signs & Symptoms: R/O Bleed History: Order in [facility] [phone] Trach/vent Comments: Exam: CT BRAIN WO CONTRAST [...] findings. Electronically signed: Angel Beal. Transcribed by: [email or web address], User Resident: Electronically Signed by: ANGEL BEAL @ 08/15/2021 04:12 PMNormalPike Community HospitalBasic Metabolic Panel w/ Reflex to MGon 25-51-4096Dvnhm gap [Moles/Vol]11 mmol/L9 - 17 mmol/LBON [facility] Calcium [Mass/Vol]8.5 mg/dLLow8.6 - 10.4 mg/dLBON [facility]RS MERCY HEALTHChloride [Moles/Vol]107 mmol/L98 - 107 mmol/LBON SECOURS MERCY HEALTHCO2 [Moles/Vol]24 mmol/L20 - 31 mmol/LBON [facility] MERCY HEALTHCreatinine [Mass/Vol]0.54 mg/dL0.50 - 0.90 mg/dLBON [facility]OURS MERCY HEALTHGFR >60>60 mL/minBON SECOURS MERCY HEALTHGFR Non->60>60 mL/minCLINCH VALLEY [facility] GFR/1.73 sq M.predicted MDRD (S/P/Bld) [Vol rate/Area][facility] Glucose [Mass/Vol]150 mg/vHJvbw78 - 99 mg/dLBON [facility] Interpretation and review of laboratory resultsAbnormalCL[facility]CH VALLEY [facility] Potassium [Moles/Vol]3.3 mmol/LLow3.7 - 5.3 mmol/LBON [facility]INC[facility]NAT[facility] SHRINERS HOSPITALSodium [Moles/Vol]142 mmol/L135 - 144 mmol/LBON [facility] SHRINERS HOSPITALUrea nitrogen (BldV) [Mass/Vol]11 mg/dL6 - 20 mg/dLBON [facility] HEALTHCBC with Auto Differentialon 68-19-3485Ylxqpvmc Eos #0.45HighCLINCH VALLEY MEDICAL CENTERAbsolute Immature Granulocyte<0.03[facility]ENTERAbsolute Lymph #2.27BON [facility] HOSPITALAbsolute Adair #0.58[facility] Basophils (Bld) [#/Vol]0.05 10*3/uLBON [facility] SHRINERS HOSPITALBasophils/100 WBC (Bld)1 %0 - 2 %[facility]ENTEREosinophils/100 WBC (Bld)5 %High1 - 4 % [facility] CENTERHematocrit (Bld) [Volume fraction]28.0 %Low36.3 - 47.1 % [facility] CENTERHemoglobin (Bld) [Mass/Vol]8.9 g/dLLow11.9 - 15.1 g/dL [facility]ENTERImmature granulocytes/100 WBC (Bld)0 %0[facility]ENTERInterpretation and review of laboratory resultsAbnormalCLINCH VALLEY MEDICAL CENTERLymphocytes/100 WBC (Bld)25 %24 - 43 %[facility]PITALH (RBC) [Entitic mass]31.3 pg25.2 - 33.5 pgNORTON COMMUNITY HOSPITALHC (RBC) [Mass/Vol] 31.8 g/dL28.4 - 34.8 g/dLBON SECOURS MERCY HEALTHMCV (RBC) [Entitic vol]98.6 fL 82.6 - 102.9 fLCLINCH VALLEY MEDICAL CENTERMonocytes/100 WBC (Bld)7 %3 - 12 %[facility] CENTERNRBC Automated0.00.0 per 100 WBCCLINCH VALLEY MEDICAL CENTER Platelet distribution width (Bld) [Ratio]17.5 %High11.8 - 14.4 %[facility] CENTERPlatelet mean volume (Bld) [Entitic vol]8.8 fL8.1 - 13.5 fLCLINCH VALLEY MEDICAL CENTERPlatelets (Bld) [#/Vol]576 10*3/uLHighBON CINCINNAT[facility] SHRINERS HOSPITALRBC (Bld) [#/Vol]2.84 10*6/uLLow3.95 - 5.11 m/uLCLINCH VALLEY MEDICAL CENTER RBC (Bld) [#/Vol]ANISOCYTOSIS PRESENTCLINCH VALLEY MEDICAL CENTERSeg Cmmsrrkokic43 % 36 - 65 %BON [facility] SHRINERS HOSPITALSegs Absolute5.62BON [facility]INERS HOSPITALWBC (Bld) [#/Vol]9.0 10*3/uLBON [facility] Magnesiumon 64-75-2714Digkjvzuk [Mass/Vol]1.8 mg/dL1.6 - 2.6 mg/dLBON [facility] Glucose Fingerstickon 19-46-3872Lhcimze [Mass/Vol]188 mg/uRVizl31 - 105 mg/dLBON [facility]ERS HOSPITALInterpretation and review of laboratory resultsAbnormalWINCHESTER MEDICAL CENTERGlucose [Mass/Vol]218 mg/nMPlrj57 - 105 mg/dLBON [facility] Interpretation and review of laboratory resultsAbnormalCLINCH VALLEY [facility] BON [facility]RINERS HOSPITALGlucose [Mass/Vol]133 mg/yZMuic03 - 105 mg/dLBON [facility]RINERS HOSPITALInterpretation and review of laboratory resultsAbnormalSOUTHSIDE [facility] Glucose Fingerstickon 45-66-1448Iybjpgm [Mass/Vol]204 mg/cQKspp41 - 105 mg/dLBON [facility]ERS HOSPITALInterpretation and review of laboratory resultsAbnormalWINCHESTER MEDICAL CENTERGlucose [Mass/Vol]184 mg/mONlae23 - 105 mg/dLB[facility] Interpretation and review of laboratory resultsAbnormalCLINCH VALLEY [facility] BON [facility]INERS HOSPITALGlucose [Mass/Vol]202 mg/xNMfvs70 - 105 mg/dLBON [facility]ERS HOSPITALInterpretation and review of laboratory resultsAbnormalWINCHESTER MEDICAL CENTERGlucose [Mass/Vol]126 mg/bIDdaw95 - 105 mg/dLBON [facility] SHRINERS HOSPITALInterpretation and review of laboratory results AbnormalWINCHESTER MEDICAL CENTERBasic Metabolic Panel w/ Reflex to MGon 36-79-3203Mzclm gap [Moles/Vol]11 mmol/L9 - 17 mmol/LBON [facility] SHRINERS HOSPITALCalcium [Mass/Vol]7.9 mg/dLLow8.6 - 10.4 mg/dLBON [facility]ERS HOSPITALChloride [Moles/Vol]108 mmol/LHigh98 - 107 mmol/LBON [facility] CO2 [Moles/Vol]22 mmol/L20 - 31 mmol/LBON [facility]RINERS HOSPITALCreatinine [Mass/Vol]0.59 mg/dL0.50 - 0.90 mg/dLBON [facility]RINERS HOSPITALGFR >60>60 mL/minCLINCH VALLEY MEDICAL CENTERGFR Non->60>60 mL/minCLINCH VALLEY MEDICAL CENTERGFR/1.73 sq M.predicted MDRD (S/P/Bld) [Vol rate/Area][facility]ENTERGlucose [Mass/Vol]193 mg/oPWpmz69 - 99 mg/dL [facility]ENTERInterpretation and review of laboratory resultsAbnormal [facility]ENTERPotassium [Moles/Vol]3.8 mmol/L3.7 - 5.3 mmol/LBON [facility]INC[facility] SHRINERS HOSPITALSodium [Moles/Vol]141 mmol/L135 - 144 mmol/LBON [facility] SHRINERS HOSPITALUrea nitrogen (BldV) [Mass/Vol]11 mg/dL6 - 20 mg/dLBON [facility] / [facility] HEALTHCBC with Auto Differentialon 41-82-8851Ugqmvefy Eos #0.29B[facility] HOSPITALAbsolute Immature Granulocyte0.04BON SECOU[facility] HOSPITALY HEALTHAbsolute Lymph #2.17B[facility] MAG[facility] HOSPITALY HEALTHAbsolute Adair #0.64B[facility] SEC[facility] HEALTHBasophils (Bld) [#/Vol]0.04 10*3/uLBON SECOURS [facility] HEALTH Basophils/100 WBC (Bld)0 %0 - 2 %[facility] CHILDREN'S HOSPITALEosinophils/100 WBC (Bld)3 %1 - 4 %B[facility]INERS HOSPITALHematocrit (Bld) [Volume fraction]24.6 % Low36.3 - 47.1 %[facility] CENTERHemoglobin (Bld) [Mass/Vol]8.0 g/dLLow 11.9 - 15.1 g/dLBON SECOHIOHEALTH GROVE CITY METHODIST HOSPITALImmature granulocytes/100 WBC (Bld)0 %0 [facility] CENTERInterpretation and review of laboratory resultsAbnormal BON [facility] SHRINERS HOSPITALLymphocytes/100 WBC (Bld)23 %Low24 - 43 %[facility]OSPITALH (RBC) [Entitic mass]31.7 pg25.2 - 33.5 pgBON SECCLEVELAND CLINIC FAIRVIEW HOSPITALHC (RBC) [Mass/Vol]32.5 g/dL28.4 - 34.8 g/dLBON SECCLEVELAND CLINIC FAIRVIEW HOSPITALV (RBC) [Entitic vol]97.6 fL82.6 - 102.9 fLBON SECP [facility] HEALTHMonocytes/100 WBC (Bld)7 %3 - 12 %[facility] CENTERNRBC Automated0.00.0 per 100 WBCBON [facility]P & [facility]ERY [facility] HEALTHPlatelet distribution width (Bld) [Ratio]17.8 %High11.8 - 14.4 %[facility] HEALTHPlatelet mean volume (Bld) [Entitic vol]8.9 fL8.1 - 13.5 fLBON SECP & [facility]ERY [facility] HEALTHPlatelets (Bld) [#/Vol]514 10*3/uLHighBON SECOURS NATIONWIDE CHILDREN'S HOSPITALRBC (Bld) [#/Vol]2.52 10*6/uLLow3.95 - 5.11 m/uLBON SECOURS [email or web address] HEALTHRBC (Bld) [#/Vol]ANISOCYTOSIS PRESENTBON SECRetidoc HEALTHSeg Wqngwnrejan44 %High36 - 65 %BON SECRetidoc HEALTHSegs Absolute6.36BON SECJORGE Employyd.com HEALTHWBC (Bld) [#/Vol]9.5 10*3/uLBON SECJORGE BARCLAYY HEALTHARASELI SECJORGE ChompY HEALTHEKG 12 LeadOrdered By: Deshawn Galloway on 72-27-1764Gxvsfy Pwwq70UOP BON SECRetidoc HEALTH Work Phone: [phone] Chff35nswshwzYJG SECJAMF SoftwareY HEALTH Work Phone: [phone]-R Npeytngk809 msBON SECJAMF SoftwareY HEALTH Work Phone: [phone] Bsmpkzbc980 msBON SECJAMF SoftwareY HEALTH Work Phone: [phone] Knleazrk16 msBON SECJAMF SoftwareY HEALTH Work Phone: QTc Calculation (Dm)457 msBON SECRetidoc HEALTH Work Phone: [phone] Comstock-4degreesBON SECRetidoc HEALTH Work Phone: [phone] Ejra57dhxgqecZYW SECRetidoc HEALTH Work Phone: [phone] Tuiw86MMSUGB SECRetidoc HEALTH Work Phone: BON SECRetidoc HEALTH Work Phone: EKG 12 Leadon 85-61-4691NDFZ STV MUSEARASELI SECRetidoc HEALTH Work Phone: poc Glucose Fingerstickon 92-17-2342Dspyubr [Mass/Vol] 147 mg/hFJtjp37 - 105 mg/dLBON SECRetidoc HEALTHInterpretation and review of laboratory resultsAbnormalBON SECOURS MAGRUD[facility]IAL HOSPITALY HEALTHABRAZO [facility] SECRetidoc HEALTH Glucose [Mass/Vol]157 mg/hBUcnw63 - 105 mg/dLBON SECRetidoc HEALTH Interpretation and review of laboratory resultsAbnormalBON SECRetidoc HEALTH BON SECRetidoc HEALTHGlucose [Mass/Vol]207 mg/jXQusv38 - 105 mg/dLBON SECRetidoc HEALTHInterpretation and review of laboratory resultsAbnormalBON SECJORGE MAGRUDER MEMORIAL HOSPITALSalma [facility] HEALTHGlucose [Mass/Vol]214 mg/rHKgdz56 - 105 mg/dLBON [facility]P [facility] HEALTHInterpretation and review of laboratory results AbnormalBON HANS P. PETERSON [facility] HOSPITALC Glucose Fingerstick on 37-08-4743Ganirzi [Mass/Vol]206 mg/cRFqcc84 - 105 mg/dLBON SECP [facility] HEALTHInterpretation and review of laboratory resultsAbnormalBON SECJORGE [facility] HEALTHGlucose [Mass/Vol]202 mg/lKJuvt94 - 105 mg/dLBON [facility]P [facility] HEALTHInterpretation and review of laboratory resultsAbnormalBON [facility] HEALTHGlucose [Mass/Vol]179 mg/jMOwdx41 - 105 mg/dLBON [facility]P [facility] HEALTHInterpretation and review of laboratory results AbnormalCOMMUNITY HEALTH SYSTEMS HEALTHGlucose [Mass/Vol]144 mg/tGNztz39 - 105 mg/dLBON [facility] HEALTHInterpretation and review of laboratory resultsAbnormalWINCHESTER [facility] Glucose [Mass/Vol]154 mg/iWVpoe25 - 105 mg/dLB[facility] HEALTH Interpretation and review of laboratory resultsAbnormalSENTARA RMH MEDICAL CENTERGlucose [Mass/Vol]150 mg/rQVoja59 - 105 mg/dLBON [facility] HEALTHInterpretation and review of laboratory resultsAbnormalCOMMUNITY HEALTH SYSTEMS HEALTHGlucose [Mass/Vol]153 mg/mBTvjh30 - 105 mg/dLBON [facility] HEALTHInterpretation and review of laboratory results AbnormalWINCHESTER MEDICAL CENTERTSHon 08-07-2021 Interpretation and review of laboratory resultsAbnormalCLINCH [facility]LEY [facility] TSH Qn7.90 m[IU]/LHighWINCHESTER MEDICAL CENTERXR CERVICAL SPINE FLEXION AND EXTENSIONon [id number] RIS CONSOLIDATEDMHPN RIS [facility] Work Phone: radiology Study observation (narrative)[facility] Work Phone: XR CERVICAL SPINE FLEXION AND EXTENSIONOrdered By: Paramjit Saenz on 07-05-1017FGS [employer] Work Phone: Basic Metabolic Panel w/ Reflex to MGon 08-06-2021 Anion gap [Moles/Vol]11 mmol/L9 - 17 mmol/LBON SECShoorKCalcium [Mass/Vol]8.5 mg/dLLow8.6 - 10.4 mg/dLBON SECShoorKChloride [Moles/Vol]109 mmol/LHigh98 - 107 mmol/LBON SECShoorKCO2 [Moles/Vol] 23 mmol/L20 - 31 mmol/LBON DanceOnCreatinine [Mass/Vol]0.55 mg/dL 0.50 - 0.90 mg/dLBON DanceOnGFR >60>60 mL/minABRAZO SCOTTSDALE [facility] DanceOnGFR Non->60>60 mL/minABRAZO SCOTTSDALE [facility]AMP[facility] DanceOnGFR/1.73 sq M.predicted MDRD (S/P/Bld) [Vol rate/Area][facility] DanceOnGlucose [Mass/Vol]48 mg/dLLow70 - 99 mg/dLBON [facility] Interpretation and review of laboratory resultsAbnormalBON DanceOn Potassium [Moles/Vol]3.6 mmol/LLow3.7 - 5.3 mmol/LBON SECShoorKSodium [Moles/Vol]143 mmol/L135 - 144 mmol/LBON [facility] CENTERShoorKUrea nitrogen (BldV) [Mass/Vol]11 mg/dL6 - 20 mg/dLBON SECShoorKBON DanceOnCBC with Auto Differentialon 69-37-3328Bbnfsltp Eos #0.28[facility] ChompY VersartisAbsolute Immature Granulocyte0.07[facility] VersartisAbsolute Lymph # 2.04[facility] ChompY HEALTHAbsolute Adair #0.61[facility] POIBasophils (Bld) [#/Vol]0.04 10*3/uLBON SECOURS POIBasophils/100 WBC (Bld)0 %0 - 2 %[facility]ENTEREosinophils/100 WBC (Bld)2 %1 - 4 %[facility] CENTERHematocrit (Bld) [Volume fraction]26.3 %Low36.3 - 47.1 %[facility] CENTERHemoglobin (Bld) [Mass/Vol]8.6 g/dLLow11.9 - 15.1 g/dLBON SECOHIOHEALTH GROVE CITY METHODIST HOSPITALImmature granulocytes/100 WBC (Bld)1 %Hhrn8UOXCLINCH VALLEY MEDICAL CENTER Interpretation and review of laboratory resultsAbnormalBON [facility] Lymphocytes/100 WBC (Bld)17 %Low24 - 43 %[facility]PITALH (RBC) [Entitic mass]31.9 pg25.2 - 33.5 pgNORTON COMMUNITY HOSPITALHC (RBC) [Mass/Vol] 32.7 g/dL28.4 - 34.8 g/dLBON GUERNSEY MEMORIAL HOSPITALV (RBC) [Entitic vol]97.4 fL 82.6 - 102.9 fLCLINCH VALLEY MEDICAL CENTERMonocytes/100 WBC (Bld)5 %3 - 12 %[facility] CENTERNRBC Automated0.00.0 per 100 WBCCLINCH VALLEY MEDICAL CENTER Platelet distribution width (Bld) [Ratio]18.0 %High11.8 - 14.4 %[facility] CENTERPlatelet mean volume (Bld) [Entitic vol]8.4 fL8.1 - 13.5 fLCLINCH VALLEY MEDICAL CENTERPlatelets (Bld) [#/Vol]565 10*3/uLHighCLINCH VALLEY MEDICAL CENTERRBC (Bld) [#/Vol]2.70 10*6/uLLow3.95 - 5.11 m/uLCLINCH VALLEY MEDICAL CENTER RBC (Bld) [#/Vol]ANISOCYTOSIS PRESENTCLINCH VALLEY MEDICAL CENTERSeg Gmlldzdlcyg59 % High36 - 65 %BON [facility] HOSPITALSegs Absolute9.28HighCLINCH VALLEY MEDICAL CENTERWBC (Bld) [#/Vol]12.3 10*3/uLHighBON [facility] HEALTHNo Panel Informationon 40-32-2800Jkqycqtddjtlkf and review of laboratory resultsAbnormalS[facility] Glucose Fingerstickon 92-86-4620Bxzxrdt [Mass/Vol]158 mg/tFKejs55 - 105 mg/dLBON [facility] HEALTHInterpretation and review of laboratory resultsAbnormalBON SECVETERAN'S [facility] HEALTHGlucose [Mass/Vol]125 mg/pYDsbu85 - 105 mg/dLBON [facility] HEALTHInterpretation and review of laboratory results AbnormalBON [facility] HEALTHGlucose [Mass/Vol]128 mg/vJTblh60 - 105 mg/dLBON [facility] HEALTHInterpretation and review of laboratory resultsAbnormalWINCHESTER [facility] Glucose [Mass/Vol]106 mg/aXQczj27 - 105 mg/dLBON [facility] HEALTH Interpretation and review of laboratory resultsAbnormCarilion [facility] HEALTHGlucose [Mass/Vol]109 mg/wTQeqe85 - 105 mg/dLBON [facility] HEALTHInterpretation and review of laboratory resultsAbnormalBON [facility] HEALTHGlucose [Mass/Vol]39 mg/dLCritically low65 - 105 mg/dLBON [facility] HEALTHInterpretation and review of laboratory resultsAbnormalCOMMUNITY HEALTH SYSTEMS HEALTHGlucose [Mass/Vol]43 mg/dLLow65 - 105 mg/dLBON [facility] HEALTHGlucose [Mass/Vol]116 mg/aAKtjc81 - 105 mg/dLBON [facility]INERS HOSPITALArterial Blood Gas, POCon 30-94-6511OMD540.0BON [facility]INERS HOSPITALHCO3 (Bld) [Moles/Vol]26.0 mmol/L21.0 - 28.0 mmol/LBON [facility]RINERS HOSPITALO2 Device/Flow/%Adult VentilatorCLINCH VALLEY MEDICAL CENTEROxygen saturation in Blood99 %High94.0 - 98.0 %[facility] hTP240.7B[facility]ITALC pH7.435BON [facility] XB8582.3HighBON [facility]ERS HOSPITALPositive Base Excess, [id number] [facility] HEALTHSample SiteArterial LineBON SECOURS [facility]OSPITALY [facility]OSPITALBasic Metabolic Panel w/ Reflex to MGon 66-91-5606Jysnf gap [Moles/Vol]11 mmol/L9 - 17 mmol/LBON [facility] HEALTHCalcium [Mass/Vol]8.5 mg/dLLow8.6 - 10.4 mg/dLBON [facility] HEALTHChloride [Moles/Vol]109 mmol/LHigh98 - 107 mmol/LBON SECOURS [facility]OSPITALY HEALTH CO2 [Moles/Vol]23 mmol/L20 - 31 mmol/LBON [facility] HEALTHCreatinine [Mass/Vol]0.53 mg/dL0.50 - 0.90 mg/dLBON SECOURS [facility]ITALY HEALTHGFR >60>60 mL/minBON SECOURS [facility] HOSPITALY HEALTHGFR Non->60>60 mL/minBON SECOURS [facility] HEALTHGFR/1.73 sq M.predicted MDRD (S/P/Bld) [Vol rate/Area]B[facility] SEC[facility]OS[facility]ITALY HEALTHGlucose [Mass/Vol]121 mg/bGQfvp73 - 99 mg/dL [facility] SEC[facility]ITALY HEALTHInterpretation and review of laboratory resultsAbnormal [facility] HEALTHPotassium [Moles/Vol]3.5 mmol/LLow3.7 - 5.3 mmol/LBON [facility] HEALTHSodium [Moles/Vol]143 mmol/L135 - 144 mmol/LBON SECOURS [facility]ITALY HEALTHUrea nitrogen (BldV) [Mass/Vol]14 mg/dL6 - 20 mg/dLBON SECOURS [facility] HOSPITALY [facility] HOSPITALBON SECOURS [facility]ITALY [facility] HOSPITALCBC with Auto Differentialon 27-76-0816Pnwvtmka Eos #0.25[facility] HEALTHAbsolute Immature Granulocyte0.05[facility] HEALTHAbsolute Lymph #1.83[facility] HEALTHAbsolute Adair #0.57[facility] HOSPITALBasophils (Bld) [#/Vol]10*3/uLBON SECOURS [facility]ITALY HEALTH Basophils/100 WBC (Bld)0 %0 - 2 %[facility] HEALTHEosinophils/100 WBC (Bld)3 %1 - 4 %[facility]ITALY HEALTHHematocrit (Bld) [Volume fraction]24.2 % Low36.3 - 47.1 %[facility]P [facility] HEALTHHemoglobin (Bld) [Mass/Vol]7.7 g/dLLow 11.9 - 15.1 g/dLBON SECOHIOHEALTH GROVE CITY METHODIST HOSPITALImmature granulocytes/100 WBC (Bld)1 % Qpor1EWESENTARA HALIFAX [facility]AL [facility]ITAL HEALTHInterpretation and review of laboratory results AbnormalBON SECOHIOHEALTH GROVE CITY METHODIST HOSPITALLymphocytes/100 WBC (Bld)19 %Low24 - 43 %BON [facility]IAL HOSPITALH (RBC) [Entitic mass]31.2 pg25.2 - 33.5 pgBON SECCLEVELAND CLINIC FAIRVIEW HOSPITALHC (RBC) [Mass/Vol]31.8 g/dL28.4 - 34.8 g/dLBON SECCLEVELAND CLINIC FAIRVIEW HOSPITALV (RBC) [Entitic vol]98.0 fL82.6 - 102.9 fLCLINCH VALLEY MEDICAL [facility]ENTER Monocytes/100 WBC (Bld)6 %3 - 12 %[facility] CENTERNRBC Automated0.00.0 per 100 WBCBON [facility] HEALTHPlatelet distribution width (Bld) [Ratio]18.3 %High11.8 - 14.4 %BON SECP [facility] HEALTHPlatelet mean volume (Bld) [Entitic vol]8.6 fL8.1 - 13.5 fLABRAZO SCOTTSDALE [facility]AMPUS SECP [facility] SUR[facility] HEALTHPlatelets (Bld) [#/Vol]458 10*3/uLHighBON SECP & S SURGERY CENTER HEALTHRBC (Bld) [#/Vol]2.47 10*6/uLLow3.95 - 5.11 m/uLBON SECP [facility] HEALTHRBC (Bld) [#/Vol]ANISOCYTOSIS PRESENTBON CINC[facility] SHRINERS HOSPITALSeg Gjukjjnyjxf88 %High36 - 65 %BON SECP [facility] HEALTHSegs Absolute6.77BON SECOURS [facility] HEALTHWBC (Bld) [#/Vol]9.5 10*3/uLBON [facility] HEALTHMagnesiumon 99-58-2848Qehlfykmw [Mass/Vol] 1.8 mg/dL1.6 - 2.6 mg/dLBON SECSELECT [facility] HEALTHNo Panel Informationon 68-36-9049Lovvkijbswdmxh and review of laboratory resultsAbnormal [facility] Glucose Fingerstickon 13-07-6463Bwefkxk [Mass/Vol]130 mg/kALnvk75 - 105 mg/dLBON [facility] Interpretation and review of laboratory resultsAbnormalCLINCH VALLEY [facility] BON [facility]INERS HOSPITALGlucose [Mass/Vol]139 mg/bQVxjk49 - 105 mg/dLBON [facility] HOSPITALInterpretation and review of laboratory resultsAbnormalWINCHESTER MEDICAL CENTERGlucose [Mass/Vol]126 mg/ePFuqk62 - 105 mg/dLBON [facility] HOSPITALInterpretation and review of laboratory results AbnormalBON [facility] HEALTHGlucose [Mass/Vol]151 mg/mNNbla88 - 105 mg/dLBON [facility] HOSPITALInterpretation and review of laboratory resultsAbnormBuchanan General HospitalPOCT Glucoseon 06-52-4608Wlddfgc [Mass/Vol]112 mg/jYIxeo41 - 100 mg/dLBON [facility] HOSPITALBasic Metabolic Panel w/ Reflex to MGon 58-69-8173Iyges gap [Moles/Vol]11 mmol/L9 - 17 mmol/LBON [facility] HOSPITALCalcium [Mass/Vol]8.1 mg/dLLow8.6 - 10.4 mg/dLBON [facility]RINERS HOSPITALChloride [Moles/Vol]108 mmol/L High98 - 107 mmol/LBON [facility] SHRINERS HOSPITALCO2 [Moles/Vol]22 mmol/L20 - 31 mmol/LBON [facility] HOSPITALCreatinine [Mass/Vol]0.57 mg/dL0.50 - 0.90 mg/dL [facility]ENTERGFR >60>60 mL/minCLINCH VALLEY MEDICAL CENTERGFR Non->60>60 mL/minCLINCH VALLEY MEDICAL CENTERGFR/1.73 sq M.predicted MDRD (S/P/Bld) [Vol rate/Area]BON [facility] HOSPITALGlucose [Mass/Vol]195 mg/hNBezl03 - 99 mg/dLBON [facility]INERS HOSPITALInterpretation and review of laboratory resultsAbnormalBON [facility] HOSPITALPotassium [Moles/Vol]3.5 mmol/LLow3.7 - 5.3 mmol/LBON SECOURS [facility]DR[facility] HOSPITALSodium [Moles/Vol]141 mmol/L135 - 144 mmol/LBON SECOHIOHEALTH GROVE CITY METHODIST HOSPITALUrea nitrogen (BldV) [Mass/Vol]17 mg/dL6 - 20 mg/dLBON SECOURS [facility] CHILDREN'S HOSPITALBON [facility] HOSPITALCBC with Auto Differentialon 21-28-6838Hmocnhbi Eos #0.24B[facility] SEC[facility] HOSPITALAbsolute Immature Granulocyte0.07B[facility] SEC[facility] HOSPITALAbsolute Lymph # 1.77BON SEC[facility] HOSPITALAbsolute Adair #0.72BON SECOHIOHEALTH GROVE CITY METHODIST HOSPITALBasophils (Bld) [#/Vol]10*3/uLBON SECOURS [facility] HOSPITALBasophils/100 WBC (Bld)0 %0 - 2 % [facility] CENTEREosinophils/100 WBC (Bld)2 %1 - 4 %[facility] CENTERHematocrit (Bld) [Volume fraction]23.7 %Low36.3 - 47.1 %[facility] CENTERHemoglobin (Bld) [Mass/Vol]8.0 g/dLLow11.9 - 15.1 g/dLBON [facility] HOSPITALImmature granulocytes/100 WBC (Bld)1 %Myvu3DSNCLINCH VALLEY MEDICAL CENTER Interpretation and review of laboratory resultsAbnormalCLINCH VALLEY [facility] Lymphocytes/100 WBC (Bld)17 %Low24 - 43 %BON [facility] HOSPITALH (RBC) [Entitic mass]32.3 pg25.2 - 33.5 pgBON SECCLEVELAND CLINIC FAIRVIEW HOSPITALHC (RBC) [Mass/Vol] 33.8 g/dL28.4 - 34.8 g/dLBON SECCLEVELAND CLINIC FAIRVIEW HOSPITALV (RBC) [Entitic vol]95.6 fL 82.6 - 102.9 fLBON [facility] HOSPITALMonocytes/100 WBC (Bld)7 %3 - 12 %[facility] CENTERNRBC Automated0.00.0 per 100 WBCCLINCH VALLEY MEDICAL [facility]ENTER Platelet distribution width (Bld) [Ratio]18.4 %High11.8 - 14.4 %[facility]ITALY HEALTHPlatelet mean volume (Bld) [Entitic vol]8.7 fL8.1 - 13.5 fLBON SECOURS [facility]OSPITALY HEALTHPlatelets (Bld) [#/Vol]429 10*3/uLBON SECJORGE [facility] HEALTH RBC (Bld) [#/Vol]2.48 10*6/uLLow3.95 - 5.11 m/uLBON SECOURS [facility] HEALTHRBC (Bld) [#/Vol]ANISOCYTOSIS PRESENTBON SECOURS [facility]OSPITALY HEALTHSeg Ypafkaxwtlm28 %High 36 - 65 %[facility]ITALY HEALTHSegs Absolute7.64B[facility] HEALTHWBC (Bld) [#/Vol]10.5 10*3/uLBON SECVETERAN'S [facility]ISTR[facility] HEALTHLipase on 31-87-7805Ouduft [Catalytic activity/Vol]16 U/L13 - 60 U/LBON SECVETERAN'[facility] HEALTHMagnesiumon 62-25-2973Nacrqpagp [Mass/Vol]1.9 mg/dL1.6 - 2.6 mg/dLBON SECAURORA VALLEY VIEW MEDICAL CENTERPOC Glucose Fingerstickon 65-94-6885Zoiemju [Mass/Vol]170 mg/dRKnia50 - 105 mg/dLBON [facility] HEALTHInterpretation and review of laboratory resultsAbnormalBON SECVETERAN'[facility] HEALTHGlucose [Mass/Vol]118 mg/vIXhhv63 - 105 mg/dLBON SECOURS [facility]ITALY HEALTHInterpretation and review of laboratory results AbnormalBON SEC[facility] HEALTHGlucose [Mass/Vol]226 mg/mOPbwv48 - 105 mg/dLBON SECOURS [facility]OSPITALY HEALTHInterpretation and review of laboratory resultsAbnormalABRAZO [facility] SECVETERAN[facility] HEALTH Glucose [Mass/Vol]192 mg/uIEmld63 - 105 mg/dLBON SECOURS [facility] HEALTH Interpretation and review of laboratory resultsAbnormalSENTARA [facility]IF[facility] HEALTH B[facility] HEALTHArterial Blood Gas, POCon 46-85-4833Tjpiq TestNOT APPLICABLEBON SECOURS MAGRUD[facility] HOSPITALY ZBHXCAYWH092.0[facility] HEALTHHCO3 (Bld) [Moles/Vol]24.5 mmol/L21.0 - 28.0 mmol/LBON [facility]OSPITALModePRVCBON [facility] SHRINERS HOSPITALO2 Device/Flow/%Adult VentilatorCLINCH VALLEY MEDICAL [facility]ENTER Oxygen saturation in Blood99 %High94.0 - 98.0 %[facility] CENTERPOC pCO[address] FRANCIS HOSPITALC pH7.497HighBON [facility] PO2 116.0HighCLINCH VALLEY MEDICAL CENTERPositive Base Excess, [id number] [facility]OSPITALSample SiteArterial LineBON [facility] HOSPITALBasic Metabolic Panel w/ Reflex to MGon 71-36-2321Doxcb gap [Moles/Vol]10 mmol/L9 - 17 mmol/LBON [facility] HOSPITALCalcium [Mass/Vol]8.3 mg/dLLow8.6 - 10.4 mg/dLBON [facility]INERS HOSPITALChloride [Moles/Vol]107 mmol/L98 - 107 mmol/LBON [facility] SHRINERS HOSPITALCO2 [Moles/Vol]22 mmol/L20 - 31 mmol/LBON [facility] HOSPITALCreatinine [Mass/Vol] 0.6 mg/dL0.50 - 0.90 mg/dLBON [facility] HOSPITALGFR >60>60 mL/minCLINCH VALLEY MEDICAL CENTERGFR Non->60>60 mL/minCLINCH VALLEY MEDICAL CENTERGFR/1.73 sq M.predicted MDRD (S/P/Bld) [Vol rate/Area]BON [facility] HOSPITALGlucose [Mass/Vol]210 mg/eSGhjv38 - 99 mg/dLBON [facility] Interpretation and review of laboratory resultsAbnormalBON [facility] Potassium [Moles/Vol]3.6 mmol/LLow3.7 - 5.3 mmol/LBON [facility] HOSPITALSodium [Moles/Vol]139 mmol/L135 - 144 mmol/LBON [facility]IN[facility] HOSPITALUrea nitrogen (BldV) [Mass/Vol]15 mg/dL6 - 20 mg/dLBON [facility] HEALTHCBC with Auto Differentialon 03-21-5912Fbibsrup Eos #0.19BON [facility] HOSPITALAbsolute Immature Granulocyte0.11BON SECOHIOHEALTH [facility]IST HOSPITALAbsolute Lymph # 1.74BON [facility] HOSPITALAbsolute Adair #0.92BON SECOHIOHEALTH GROVE CITY METHODIST HOSPITALBasophils (Bld) [#/Vol]0.03 10*3/uLBON SECOHIOHEALTH GROVE CITY METHODIST HOSPITALBasophils/100 WBC (Bld)0 %0 - 2 %[facility] CENTEREosinophils/100 WBC (Bld)2 %1 - 4 %[facility] CENTERHematocrit (Bld) [Volume fraction]24.8 %Low36.3 - 47.1 %[facility] CENTERHemoglobin (Bld) [Mass/Vol]8.3 g/dLLow11.9 - 15.1 g/dLBON [facility] HOSPITALImmature granulocytes/100 WBC (Bld)1 %Yjox3MCC [facility] Interpretation and review of laboratory resultsAbnormalBON [facility] Lymphocytes/100 WBC (Bld)15 %Low24 - 43 %[facility]ITALH (RBC) [Entitic mass]31.6 pg25.2 - 33.5 pgBON GUERNSEY MEMORIAL HOSPITALHC (RBC) [Mass/Vol] 33.5 g/dL28.4 - 34.8 g/dLBON GUERNSEY MEMORIAL HOSPITALV (RBC) [Entitic vol]94.3 fL 82.6 - 102.9 fLCLINCH VALLEY MEDICAL CENTERMonocytes/100 WBC (Bld)8 %3 - 12 %[facility] CENTERNRBC Automated0.00.0 per 100 WBCCLINCH VALLEY MEDICAL CENTER Platelet distribution width (Bld) [Ratio]18.5 %High11.8 - 14.4 %[facility] CENTERPlatelet mean volume (Bld) [Entitic vol]8.8 fL8.1 - 13.5 fLCLINCH VALLEY MEDICAL CENTERPlatelets (Bld) [#/Vol]429 10*3/uLBON [facility] RBC (Bld) [#/Vol]2.63 10*6/uLLow3.95 - 5.11 m/uLBON [facility] SHRINERS HOSPITALRBC (Bld) [#/Vol]ANISOCYTOSIS PRESENTBON [facility] SH[facility]INERS HOSPITALSeg Npshltxjuuw15 %High 36 - 65 %BON [facility] HOSPITALSegs Absolute8.94[facility] WBC (Bld) [#/Vol]11.9 10*3/uLHighBON [facility] HEALTHNo Panel Informationon 69-44-6181Qurmrdmzoyxrjm and review of laboratory resultsAbnormalS[facility] Glucose Fingerstickon 42-91-0331Vubkkmf [Mass/Vol]302 mg/hYWprh76 - 105 mg/dLBON [facility] HEALTHInterpretation and review of laboratory resultsAbnormalCOMMUNITY HEALTH SYSTEMS HEALTHGlucose [Mass/Vol]246 mg/hNDtjv36 - 105 mg/dLBON [facility] HEALTHInterpretation and review of laboratory results AbnormalBON [facility] HEALTHGlucose [Mass/Vol]196 mg/zPBqjd06 - 105 mg/dLBON [facility] HEALTHInterpretation and review of laboratory resultsAbnormBuchanan General Hospital Glucose [Mass/Vol]222 mg/eQLcbv49 - 105 mg/dLBON [facility] HEALTH Interpretation and review of laboratory resultsAbnormInova Health SystemGlucose [Mass/Vol]216 mg/gQXbzf11 - 105 mg/dLBON [facility] HEALTHInterpretation and review of laboratory resultsAbnormBuchanan General HospitalPOCT Glucoseon 16-40-6664Xxrwcld [Mass/Vol] 218 mg/iTOlhz99 - 100 mg/dLBON [facility]ERS HOSPITALArterial Blood Gas, POCon 60-50-3823Pltdm TestNOT APPLICABLESENTARA HALIFAX [facility] XWHGHOACW185.0BON [facility]INERS HOSPITALHCO3 (Bld) [Moles/Vol]24.2 mmol/L21.0 - 28.0 mmol/LBON [facility] HEALTHModePRVCB[facility] HEALTHO2 Device/Flow/%Adult VentilatorCLINCH VALLEY MEDICAL CENTEROxygen saturation in Blood99 %High94.0 - 98.0 %[facility]C pJF939.7BON SECLUTHERAN HOSPITALC pH7.439B[facility]OSPITALC FP8366.9HighBON [facility] HOSPITALPositive Base Excess, Vrs9SHE [facility]ITALSample SiteArterial LineCLINCH VALLEY MEDICAL CENTERBasic Metabolic Panel w/ Reflex to MGon 74-47-4608Fbywp gap [Moles/Vol]9 mmol/L9 - 17 mmol/LBON [facility] HOSPITALCalcium [Mass/Vol]8.0 mg/dLLow8.6 - 10.4 mg/dLBON [facility]ERS HOSPITALChloride [Moles/Vol]106 mmol/L98 - 107 mmol/LBON [facility] SHRINERS HOSPITALCO2 [Moles/Vol]22 mmol/L20 - 31 mmol/LBON [facility] Creatinine [Mass/Vol]0.67 mg/dL0.50 - 0.90 mg/dLBON [facility]ERS HOSPITALGFR >60>60 mL/minCLINCH VALLEY MEDICAL CENTERGFR Non->60 >60 mL/minCLINCH VALLEY MEDICAL CENTERGFR/1.73 sq M.predicted MDRD (S/P/Bld) [Vol rate/Area][facility] CENTERGlucose [Mass/Vol]247 mg/mQYizd25 - 99 mg/dL [facility] CENTERInterpretation and review of laboratory resultsAbnormal BON [facility]OSPITALPotassium [Moles/Vol]3.3 mmol/LLow3.7 - 5.3 mmol/LBON [facility] SHRINERS HOSPITALSodium [Moles/Vol]137 mmol/L135 - 144 mmol/LBON [facility]RINERS HOSPITALUrea nitrogen (BldV) [Mass/Vol]15 mg/dL6 - 20 mg/dLBON [facility] HEALTHCBC with Auto Differentialon [id number] Eos #0.15BON SECASTRIA TOPPENISH HOSPITALY [facility] BRYAN HOSPITALAbsolute Immature Granulocyte0.26B[facility] HOSPITALAbsolute Lymph #1.97B[facility] SEC[facility]OSPITALY [facility] HOSPITALAbsolute Adair #0.99BON SECOHIOHEALTH [facility] CITY [facility]IST HOSPITALBasophils (Bld) [#/Vol]0.04 10*3/uLBON [facility] Basophils/100 WBC (Bld)0 %0 - 2 %[facility] SECOHIOHEALTH GROVE CITY METHODIST HOSPITALEosinophils/100 WBC (Bld)1 %1 - 4 %[facility] SECOHIOHEALTH GROVE CITY METHODIST HOSPITALHematocrit (Bld) [Volume fraction]23.5 % Low36.3 - 47.1 %[facility] CENTERHemoglobin (Bld) [Mass/Vol]8.0 g/dLLow 11.9 - 15.1 g/dLBON SECOHIOHEALTH GROVE CITY METHODIST HOSPITALImmature granulocytes/100 WBC (Bld)2 % Rbrp8UQTSENTARA HALIFAX REGIONAL [facility]OSPITAL HEALTHInterpretation and review of laboratory results AbnormalBON C[facility] SHRINERS HOSPITALLymphocytes/100 WBC (Bld)16 %Low24 - 43 %[facility]OSPITALH (RBC) [Entitic mass]32.0 pg25.2 - 33.5 pgBON GUERNSEY MEMORIAL HOSPITALHC (RBC) [Mass/Vol]34.0 g/dL28.4 - 34.8 g/dLBON SECCLEVELAND CLINIC FAIRVIEW HOSPITALV (RBC) [Entitic vol]94.0 fL82.6 - 102.9 fLCLINCH VALLEY MEDICAL CENTER Monocytes/100 WBC (Bld)8 %3 - 12 %[facility] CENTERNRBC Automated0.00.0 per 100 WBCCLINCH VALLEY MEDICAL CENTERPlatelet distribution width (Bld) [Ratio]18.5 %High11.8 - 14.4 %[facility] HEALTHPlatelet mean volume (Bld) [Entitic vol]8.4 fL8.1 - 13.5 fLABRA[facility] HEALTHPlatelets (Bld) [#/Vol]398 10*3/uLBON [facility] HEALTHRBC (Bld) [#/Vol]2.50 10*6/uLLow3.95 - 5.11 m/uL [facility] HEALTHRBC (Bld) [#/Vol]ANISOCYTOSIS PRESENTCLINCH VALLEY MEDICAL CENTERSeg Nhztdpglfdr33 %High36 - 65 %[facility] HEALTHSegs Absolute8.88 HighABRAZO [facility] HEALTHWBC (Bld) [#/Vol]12.3 10*3/uLHighBON [facility] HEALTHBON [facility] HEALTHMagnesiumon [id number] [Mass/Vol]1.7 mg/dL1.6 - 2.6 mg/dLBON [facility] HEALTHNo Panel Informationon [id number] and review of laboratory resultsAbnormal [facility] Glucose Fingerstickon [id number] [Mass/Vol]194 mg/mVTbje76 - 105 mg/dLBON [facility] Interpretation and review of laboratory resultsAbnormInova Health SystemGlucose [Mass/Vol]112 mg/pFBfqj78 - 105 mg/dLBON [facility] HOSPITALInterpretation and review of laboratory resultsAbnormalWINCHESTER MEDICAL CENTERGlucose [Mass/Vol]172 mg/aPNctx53 - 105 mg/dLBON [facility] HOSPITALInterpretation and review of laboratory results AbnormalWINCHESTER MEDICAL CENTERGlucose [Mass/Vol]251 mg/uCLwpe68 - 105 mg/dLBON [facility] HOSPITALInterpretation and review of laboratory resultsAbnormBuchanan General Hospital Glucose [Mass/Vol]240 mg/iWSuhy66 - 105 mg/dLBON [facility] Interpretation and review of laboratory resultsAbnormInova Health SystemPOCT Glucoseon [id number] [Mass/Vol]286 mg/dLHigh 74 - 100 mg/dLBON [facility]ERS HOSPITALBasic Metabolic Panel w/ Reflex to MGon [id number] gap [Moles/Vol]13 mmol/L9 - 17 mmol/LBON [facility] Calcium [Mass/Vol]7.9 mg/dLLow8.6 - 10.4 mg/dLBON [facility]INERS HOSPITALChloride [Moles/Vol]105 mmol/L98 - 107 mmol/LBON [facility] SHRINERS HOSPITALCO2 [Moles/Vol]20 mmol/L20 - 31 mmol/LBON [facility]INERS HOSPITALCreatinine [Mass/Vol]0.72 mg/dL0.50 - 0.90 mg/dLBON [facility] HOSPITALGFR >60>60 mL/minBON [facility] HEALTHGFR Non->60>60 mL/minCLINCH VALLEY [facility]ICAL [facility]ENTER GFR/1.73 sq M.predicted MDRD (S/P/Bld) [Vol rate/Area][facility] Glucose [Mass/Vol]212 mg/vTDcby87 - 99 mg/dLBON [facility] Interpretation and review of laboratory resultsAbnormalCLINCH VALLEY MEDICAL [facility]ENTER Potassium [Moles/Vol]3.2 mmol/LLow3.7 - 5.3 mmol/LBON [facility] SHRINERS HOSPITALSodium [Moles/Vol]138 mmol/L135 - 144 mmol/LBON [facility]RINERS HOSPITALUrea nitrogen (BldV) [Mass/Vol]15 mg/dL6 - 20 mg/dLBON [facility] HEALTHCBC with Auto Differentialon [id number] Eos #0.14BON [facility] HOSPITALAbsolute Immature Granulocyte0.56HighCLINCH VALLEY MEDICAL CENTERAbsolute Lymph #2.66BON [facility] HOSPITALAbsolute Adair #0.70[facility] Basophils (Bld) [#/Vol]0.00 10*3/uLBON [facility]RINERS HOSPITALBasophils/100 WBC (Bld)0 %0 - 2 %[facility] CENTEREosinophils/100 WBC (Bld)1 %1 - 4 %[facility] CENTERHematocrit (Bld) [Volume fraction]27.1 %Low36.3 - 47.1 %[facility] CENTERHemoglobin (Bld) [Mass/Vol]9.1 g/dLLow11.9 - 15.1 g/dLBON [facility] HOSPITALImmature granulocytes/100 WBC (Bld)4 %Ccvo2LNMCLINCH VALLEY MEDICAL CENTERInterpretation and review of laboratory resultsAbnormalCLINCH VALLEY MEDICAL CENTERLymphocytes/100 WBC (Bld)19 %Low24 - 44 %[facility]ITALH (RBC) [Entitic mass]31.7 pg25.2 - 33.5 pgNORTON COMMUNITY HOSPITALHC (RBC) [Mass/Vol]33.6 g/dL28.4 - 34.8 g/dLBON SECOURS MERCY HEALTHMCV (RBC) [Entitic vol]94.4 fL82.6 - 102.9 fLCLINCH VALLEY MEDICAL CENTERMonocytes/100 WBC (Bld)5 %1 - 7 %[facility] CENTERMorphology Malachi (Bld) [Interp]ANISOCYTOSIS PRESENTBON [facility] SHRINERS HOSPITALNRBC Automated0.00.0 per 100 WBCCLINCH VALLEY MEDICAL CENTER Platelet distribution width (Bld) [Ratio]18.8 %High11.8 - 14.4 %[facility] CENTERPlatelet mean volume (Bld) [Entitic vol]8.7 fL8.1 - 13.5 fLCLINCH VALLEY MEDICAL CENTERPlatelets (Bld) [#/Vol]490 10*3/uLHighCLINCH VALLEY MEDICAL CENTERRBC (Bld) [#/Vol]2.87 10*6/uLLow3.95 - 5.11 m/uLCLINCH VALLEY MEDICAL CENTER Seg Arluwzyimxx42 %High36 - 66 %[facility] HOSPITALSegs Absolute9.94HighCLINCH VALLEY MEDICAL CENTERWBC (Bld) [#/Vol]14.0 10*3/uLSentara Obici Hospital BON [facility]INERS HOSPITALMagnesiumon 11-37-5207Invitckvd [Mass/Vol]1.7 mg/dL1.6 - 2.6 mg/dLB[facility] Glucose Fingerstickon 59-22-7052Tgizeoc [Mass/Vol]124 mg/zISzfv75 - 105 mg/dLBON [facility]ERS HOSPITALInterpretation and review of laboratory resultsAbnormalWINCHESTER MEDICAL CENTERGlucose [Mass/Vol]201 mg/vEXtbh97 - 105 mg/dLBON [facility] HOSPITALInterpretation and review of laboratory results AbnormalBON [facility] HEALTHGlucose [Mass/Vol]264 mg/iZHjxy44 - 105 mg/dLBON [facility] HOSPITALInterpretation and review of laboratory resultsAbnormalWINCHESTER MEDICAL [facility]ENTER Glucose [Mass/Vol]184 mg/oPSiaz66 - 105 mg/dLBON [facility] Interpretation and review of laboratory resultsAbnormalCLINCH VALLEY MEDICAL [facility]ENTER B[facility] HOSPITALGlucose [Mass/Vol]241 mg/cLZbvl54 - 105 mg/dLBON [facility] HOSPITALInterpretation and review of laboratory resultsAbnormalWINCHESTER MEDICAL CENTERTriglycerideon 91-09-5354Junapgpqnntaqf and review of laboratory resultsAbnormalCLINCH VALLEY MEDICAL CENTERTriglyceride [Mass/Vol]164 mg/dLHigh<150WIN[facility]ENTERBasic Metabolic Panel w/ Reflex to MGon 28-53-1747Fuljt gap [Moles/Vol]14 mmol/L9 - 17 mmol/LBON [facility]RINERS HOSPITALCalcium [Mass/Vol]8.0 mg/dLLow8.6 - 10.4 mg/dL [facility] CENTERChloride [Moles/Vol]106 mmol/L98 - 107 mmol/LBON [facility] SHRINERS HOSPITALCO2 [Moles/Vol]20 mmol/L20 - 31 mmol/LB[facility] Creatinine [Mass/Vol]0.78 mg/dL0.50 - 0.90 mg/dLBON [facility] HOSPITALGFR >60>60 mL/minCLINCH VALLEY MEDICAL CENTERGFR Non->60 >60 mL/minCLINCH VALLEY MEDICAL CENTERGFR/1.73 sq M.predicted MDRD (S/P/Bld) [Vol rate/Area][facility] CENTERGlucose [Mass/Vol]209 mg/fOYgss55 - 99 mg/dL [facility]ENTERInterpretation and review of laboratory resultsAbnormal [facility]ENTERPotassium [Moles/Vol]3.3 mmol/LLow3.7 - 5.3 mmol/LBON [facility] SHRINERS HOSPITALSodium [Moles/Vol]140 mmol/L135 - 144 mmol/LBON [facility]INERS HOSPITALUrea nitrogen (BldV) [Mass/Vol]14 mg/dL6 - 20 mg/dLBON [facility] HEALTHCBC with Auto Differentialon 56-46-2520Xzsoprjo Eos #0.28[facility] CENTERAbsolute Immature Granulocyte0.98HighBON SECOURS MERCY HEALTHAbsolute Lymph #2.94[facility]OSPITALY HEALTHAbsolute Adair # 0.98HighBON SECOURS [facility] HEALTHBasophils (Bld) [#/Vol]0.00 10*3/uLBON SECOURS [facility] HEALTHBasophils/100 WBC (Bld)0 %0 - 2 %[facility] Eosinophils/100 WBC (Bld)2 %1 - 4 %[facility]OH[facility] HOSPITALHematocrit (Bld) [Volume fraction]27.4 %Low36.3 - 47.1 %[facility] SECOH[facility]HE[facility] HOSPITALHemoglobin (Bld) [Mass/Vol]9.5 g/dLLow11.9 - 15.1 g/dLBON SECOHIOHEALTH [facility]OVE [facility] METHODIST HOSPITALImmature granulocytes/100 WBC (Bld)7 %Bamj1UIASENTARA [facility] HEALTHInterpretation and review of laboratory resultsAbnormalBON SECOURS NATION[facility] CHILDREN'S HOSPITALLymphocytes/100 WBC (Bld)21 %Low24 - 44 %[facility] HOSPITALH (RBC) [Entitic mass]31.8 pg25.2 - 33.5 pgBON SECOURS [facility]OSPITALHC (RBC) [Mass/Vol]34.7 g/dL28.4 - 34.8 g/dL B[facility]IAL HOSPITALV (RBC) [Entitic vol]91.6 fL82.6 - 102.9 fLABRAZO [facility]US SECOHIOHEALTH [facility]IST HOSPITALMonocytes/100 WBC (Bld)7 %1 - 7 %[facility] SECOHIOHEALTH [facility] METHODIST HOSPITALMorphology Malachi (Bld) [Interp]ANISOCYTOSIS PRESENTBON [facility]INERS HOSPITALNRBC Automated0.0 0.0 per 100 WBCBON SECOURS [facility] HEALTHPlatelet distribution width (Bld) [Ratio] 18.4 %High11.8 - 14.4 %[facility] HOSPITALY HEALTHPlatelet mean volume (Bld) [Entitic vol]8.7 fL8.1 - 13.5 fLBON SECOURS [facility] HEALTHPlatelets (Bld) [#/Vol] 502 10*3/uLHighBON SEC[facility]RS [facility] HEALTHRBC (Bld) [#/Vol]2.99 10*6/uLLow3.95 - 5.11 m/uLBON SECOURS NATIONWIDE CHILDREN'S HOSPITALSeg Tliclfqskuk76 %36 - 66 %B[facility] HOSPITALSegs Absolute8.82HighBON CINCIN[facility] SHRINERS HOSPITALWBC (Bld) [#/Vol]14.0 10*3/uL HighBON [facility] / [facility]ERA HEALTHHemoglobin and Hematocriton 38-01-1439Lmmljvfyrn (Bld) [Volume fraction]27.4 %Low36.3 - 47.1 %[facility] CENTERHemoglobin (Bld) [Mass/Vol]9.2 g/dLLow11.9 - 15.1 g/dLBON [facility] HOSPITALInterpretation and review of laboratory resultsAbnormBuchanan General HospitalMagnesiumon 67-25-3205Vkssfcpyi [Mass/Vol] 1.6 mg/dL1.6 - 2.6 mg/dLB[facility] Glucose Fingerstickon 87-16-1636Koidwds [Mass/Vol]134 mg/ySNhlr43 - 105 mg/dLBON [facility] HEALTHInterpretation and review of laboratory resultsAbnormalWINCHESTER MEDICAL CENTERGlucose [Mass/Vol]230 mg/cYMvst25 - 105 mg/dLB[facility] HEALTHInterpretation and review of laboratory results AbnormalBON [facility] HEALTHGlucose [Mass/Vol]214 mg/kLTbal38 - 105 mg/dLB[facility] HEALTHInterpretation and review of laboratory resultsAbnormalWINCHESTER MEDICAL [facility]ENTER Glucose [Mass/Vol]197 mg/qLJmdm19 - 105 mg/dLB[facility] HEALTH Interpretation and review of laboratory resultsAbnormInova Health SystemGlucose [Mass/Vol]164 mg/lZPtek52 - 105 mg/dLB[facility] HEALTHInterpretation and review of laboratory resultsAbnormBuchanan General HospitalArterial Blood Gas, POCon 57-83-0434Ceqxp TestNOT APPLICABLECLINCH VALLEY MEDICAL CENTERFIO230.0BON [facility] HOSPITALHCO3 (Bld) [Moles/Vol]24.4 mmol/L21.0 - 28.0 mmol/LBON [facility] Interpretation and review of laboratory resultsAbnormalBON [facility] ModePRVCBON [facility]IN[facility] SHRINERS HOSPITALO2 Device/Flow/%Adult VentilatorCLINCH VALLEY MEDICAL CENTEROxygen saturation in Blood98 %94.0 - 98.0 %[facility] POC pEH059.3LowBON CINCINNATI SHRINERS HOSPITALPOC pH7.473HighCLINCH VALLEY MEDICAL CENTER POC KG8011.7BON [facility] HOSPITALPositive Base Excess, Hsz1GQB [facility] HOSPITALSample SiteArterial LineWINCHESTER MEDICAL CENTER Basic Metabolic Panel w/ Reflex to MGon 42-25-9468Xtqgv gap [Moles/Vol]10 mmol/L 9 - 17 mmol/LBON [facility]INERS HOSPITALCalcium [Mass/Vol]8.0 mg/dLLow8.6 - 10.4 mg/dLBON [facility]ERS HOSPITALChloride [Moles/Vol]105 mmol/L98 - 107 mmol/LBON [facility]RINERS HOSPITALCO2 [Moles/Vol]22 mmol/L20 - 31 mmol/LBON [facility]INERS HOSPITALCreatinine [Mass/Vol]0.7 mg/dL0.50 - 0.90 mg/dLBON [facility] HOSPITALGFR >60>60 mL/minCLINCH VALLEY MEDICAL CENTERGFR Non- >60>60 mL/minCLINCH VALLEY MEDICAL CENTERGFR/1.73 sq M.predicted MDRD (S/P/Bld) [Vol rate/Area][facility] CENTERGlucose [Mass/Vol]276 mg/hMKbur73 - 99 mg/dL [facility]ENTERInterpretation and review of laboratory resultsAbnormal B[facility]OSPITALPotassium [Moles/Vol]3.8 mmol/L3.7 - 5.3 mmol/LBON [facility]I SHRINERS HOSPITALSodium [Moles/Vol]137 mmol/L135 - 144 mmol/LBON [facility]INERS HOSPITALUrea nitrogen (BldV) [Mass/Vol]14 mg/dL6 - 20 mg/dLBON [facility] HEALTHCBC with Auto Differentialon 03-17-2789Pxifmcni Eos #0.00B[facility] HOSPITALAbsolute Immature Granulocyte0.71HighBON SECOURS [facility] HEALTHAbsolute Lymph #3.69B[facility] HOSPITALY HEALTHAbsolute Adair # 0.57B[facility] HEALTHBasophils (Bld) [#/Vol]0.00 10*3/uLBON [facility] HEALTHBasophils/100 WBC (Bld)0 %0 - 2 %BON [facility]ERS HOSPITALEosinophils/100 WBC (Bld)0 %Low1 - 4 %[facility] HOSPITALHematocrit (Bld) [Volume fraction] 27.0 %Low36.3 - 47.1 %[facility] HOSPITALHemoglobin (Bld) [Mass/Vol]9.3 g/dLLow11.9 - 15.1 g/dLBON SECOHIOHEALTH [facility]IST HOSPITALImmature granulocytes/100 WBC (Bld)5 %Weao0WARCLINCH VALLEY MEDICAL CENTERInterpretation and review of laboratory resultsAbnormalBON C[facility]IN[facility] SHRINERS HOSPITALLymphocytes/100 WBC (Bld)26 %24 - 44 %[facility]PITALH (RBC) [Entitic mass]31.5 pg25.2 - 33.5 pgBON GUERNSEY MEMORIAL HOSPITALHC (RBC) [Mass/Vol]34.4 g/dL28.4 - 34.8 g/dLBON GUERNSEY MEMORIAL HOSPITALV (RBC) [Entitic vol]91.5 fL82.6 - 102.9 fLCLINCH VALLEY MEDICAL CENTER Monocytes/100 WBC (Bld)4 %1 - 7 %[facility] CENTERMorphology Malachi (Bld) [Interp]ANISOCYTOSIS PRESENTBON [facility]INERS HOSPITALNRBC Automated0.00.0 per 100 WBCBON [facility]P [facility] HEALTHPlatelet distribution width (Bld) [Ratio]17.7 %High 11.8 - 14.4 %BON SECOHIOHE[facility]IST HOSPITALPlatelet mean volume (Bld) [Entitic vol]8.8 fL8.1 - 13.5 fLABRAZO [facility] SECP [facility] HEALTHPlatelets (Bld) [#/Vol]491 10*3/uLHighBON SECOURS [facility] HEALTHRBC (Bld) [#/Vol]2.95 10*6/uLLow3.95 - 5.11 m/uLBON CINCINNATI SHRINERS HOSPITALSeg Vbrgnkbodjm24 %36 - 66 %[facility] MED[facility] CENTERSegs Absolute 9.23HighCLINCH VALLEY MEDICAL CENTERWBC (Bld) [#/Vol]14.2 10*3/uLHighWINCHESTER MEDICAL CENTERHemoglobin and Hematocriton 07-30-2021 Hematocrit (Bld) [Volume fraction]29.5 %Low36.3 - 47.1 %[facility] Hemoglobin (Bld) [Mass/Vol]9.6 g/dLLow11.9 - 15.1 g/dLBON [facility] Interpretation and review of laboratory resultsAbnormalSENTARA RMH MEDICAL CENTERPOC Glucose Fingerstickon 11-03-8204Cyyydoz [Mass/Vol] 106 mg/mNZujl06 - 105 mg/dLBON [facility] HOSPITALInterpretation and review of laboratory resultsAbnormalWINCHESTER MEDICAL [facility]ENTER Glucose [Mass/Vol]231 mg/qUMybe24 - 105 mg/dLBON [facility] Interpretation and review of laboratory resultsAbnormalSENTARA RMH MEDICAL CENTERTYPE AND SCREENon 61-48-3220QON/RhPositiveBON [facility]INERS HOSPITALArm Band NumberBE [id number] VALLEY MEDICAL CENTERBlood Bank Blood Product Expiration [id number] Memorial Hospitalood Bank ISBT Product Blood [id number] [facility] Centerood Bank Unit Type and Rh PositiveWarren Memorial Hospitalood product type Nom (BPU)Leukocyte Reduced Red CellBON [facility] Centerood product unit ID (Dose) [#][id number] VALLEY MEDICAL CENTERCrossmatch ResultCOMPATIBLECLINCH VALLEY MEDICAL CENTERDispense StatusTRANSFUSEDBCARILION ROANOKE COMMUNITY HOSPITALExpiration Date08/01/2021,2359BON [facility] HOSPITALProduct Code Blood [id number] VALLEY MEDICAL CENTER Transfusion StatusOK TO TRANSFUSECLINCH VALLEY MEDICAL CENTERUnit Jqevecp9TLACLINCH VALLEY MEDICAL CENTERUnit Issue Date/[id number] SECOHIOHE[facility] HOSPITALBON [facility] HEALTHArterial Blood Gas, POCon 96-28-3278Bioan TestNOT APPLICABLE [facility] RWNJVETXL697.0BON SECOHIOHEALTH GROVE CITY METHODIST HOSPITALHCO3 (Bld) [Moles/Vol] 23.0 mmol/L21.0 - 28.0 mmol/LBON SECOURS [facility] HEALTHInterpretation and review of laboratory resultsAbnormalBON [facility] HEALTHModePRVCBON SECOHIOHEALTH GROVE CITY METHODIST HOSPITALNegative Base Excess, Rsk7ZLO [facility] HEALTHO2 Device/Flow/%Adult VentilatorBON SECOHIOHEALTH GROVE CITY METHODIST HOSPITALOxygen saturation in Blood99 %High94.0 - 98.0 %BON SECLUTHERAN HOSPITALC oUT997.1BON SECOHIOHEALTH GROVE CITY METHODIST HOSPITALPOC pH7.425BON SECLUTHERAN HOSPITALC HZ9714.9HighBON [facility] SHRINERS HOSPITALSample SiteArterial LineBON [facility] HEALTHBasic Metabolic Panel w/ Reflex to MGon 35-61-1442Bnkmb gap [Moles/Vol]9 mmol/L9 - 17 mmol/LBON [facility] HEALTHCalcium [Mass/Vol]7.8 mg/dLLow8.6 - 10.4 mg/dLBON [facility] HEALTHChloride [Moles/Vol]106 mmol/L98 - 107 mmol/LBON [facility] HEALTHCO2 [Moles/Vol]21 mmol/L20 - 31 mmol/LBON [facility] HEALTHCreatinine [Mass/Vol] 0.71 mg/dL0.50 - 0.90 mg/dLBON [facility] HEALTHGFR >60>60 mL/minBON [facility]ENTEROURS [facility] HEALTHGFR Non->60>60 mL/minBON [facility] HEALTHGFR/1.73 sq M.predicted MDRD (S/P/Bld) [Vol rate/Area][facility] HEALTHGlucose [Mass/Vol]246 mg/iALkoa66 - 99 mg/dLB[facility] HEALTH Interpretation and review of laboratory resultsAbnormalBON [facility] HEALTH Potassium [Moles/Vol]3.6 mmol/LLow3.7 - 5.3 mmol/LBON SECOHIOHEALTH [facility] METHODIST HOSPITALSodium [Moles/Vol]136 mmol/L135 - 144 mmol/LBON [facility] SHRINERS HOSPITALUrea nitrogen (BldV) [Mass/Vol]11 mg/dL6 - 20 mg/dLBON SECOURS NATIONW[facility]IL[facility]'S HOSPITALBON [facility] HOSPITALCBC with Auto Differentialon 67-80-1102Fcahbvmt Eos #0.00BON SECOHIOHE[facility] HOSPITALAbsolute Immature Granulocyte0.43HighBON SECOHIOHEALTH GROVE CITY [facility]IST HOSPITALAbsolute Lymph #3.13BON SECOHIOHE[facility]IST HOSPITALAbsolute Adair #0.32[facility] Basophils (Bld) [#/Vol]0.00 10*3/uLBON [facility]RINERS HOSPITALBasophils/100 WBC (Bld)0 %0 - 2 %[facility] CENTEREosinophils/100 WBC (Bld)0 %Low1 - 4 %[facility] CENTERHematocrit (Bld) [Volume fraction]22.5 %Low36.3 - 47.1 %[facility] CENTERHemoglobin (Bld) [Mass/Vol]7.4 g/dLLow11.9 - 15.1 g/dLBON [facility] HOSPITALImmature granulocytes/100 WBC (Bld)4 %Ydee3MXACLINCH VALLEY MEDICAL CENTERInterpretation and review of laboratory resultsAbnormalBON CINCINNAT[facility] SHRINERS HOSPITALLymphocytes/100 WBC (Bld)29 %24 - 44 %[facility]OSPITALH (RBC) [Entitic mass]30.7 pg25.2 - 33.5 pgBON GUERNSEY MEMORIAL HOSPITALHC (RBC) [Mass/Vol] 32.9 g/dL28.4 - 34.8 g/dLBON GUERNSEY MEMORIAL HOSPITALV (RBC) [Entitic vol]93.4 fL 82.6 - 102.9 fLCLINCH VALLEY MEDICAL CENTERMonocytes/100 WBC (Bld)3 %1 - 7 %[facility] CENTERMorphology Malachi (Bld) [Interp]ANISOCYTOSIS PRESENTCLINCH VALLEY MEDICAL CENTERNRBC Automated0.00.0 per 100 WBCCLINCH VALLEY MEDICAL CENTERPlatelet distribution width (Bld) [Ratio]19.6 %High11.8 - 14.4 %[facility] Platelet mean volume (Bld) [Entitic vol]8.9 fL8.1 - 13.5 fLSENTARA HALIFAX [facility]AL [facility] HEALTHPlatelets (Bld) [#/Vol]500 10*3/uLHighCLINCH VALLEY MEDICAL CENTERRBC (Bld) [#/Vol]2.41 10*6/uLLow3.95 - 5.11 m/uLCLINCH VALLEY MEDICAL CENTERSeg Nzmmoiaayvs07 %36 - 66 %B[facility] HOSPITALSegs Absolute6.92BON [facility]ERS HOSPITALWBC (Bld) [#/Vol]10.8 10*3/uLWINCHESTER MEDICAL [facility]ENTER Hemoglobin and Hematocriton 41-38-3580Vcynqoxsir (Bld) [Volume fraction]29.9 % Low36.3 - 47.1 %[facility] CENTERHemoglobin (Bld) [Mass/Vol]10.1 g/dLLow 11.9 - 15.1 g/dLBON [facility] HOSPITALInterpretation and review of laboratory resultsAbnormBallad Health HEALTHHematocrit (Bld) [Volume fraction]24.9 %Low36.3 - 47.1 %[facility] CENTERHemoglobin (Bld) [Mass/Vol]8.4 g/dLLow11.9 - 15.1 g/dLB[facility] HEALTHInterpretation and review of laboratory resultsAbnormBuchanan General HospitalPO Glucose Fingerstickon 39-45-7593Iijgcyz [Mass/Vol]169 mg/mZQozw50 - 105 mg/dLB[facility] HEALTHInterpretation and review of laboratory results AbnormalBON [facility] HEALTHGlucose [Mass/Vol]296 mg/bSSfrt41 - 105 mg/dLB[facility] HEALTHInterpretation and review of laboratory resultsAbnormBuchanan General Hospital Glucose [Mass/Vol]276 mg/rSAhhj93 - 105 mg/dLB[facility] HEALTH Interpretation and review of laboratory resultsAbnormalCLINCH VALLEY [facility]ENTER B[facility] HEALTHGlucose [Mass/Vol]217 mg/aDHonw65 - 105 mg/dLBON [facility] HEALTHInterpretation and review of laboratory resultsAbnormalBON CINCIN[facility]ERS HOSPITALBON [facility] HOSPITALArterial Blood Gas, POCon 11-30-2533HQP036.0 [facility] CENTERHCO3 (Bld) [Moles/Vol]22.0 mmol/L21.0 - 28.0 mmol/LBON [facility]OSPITALModePRVCBON [facility] HOSPITALNegative Base Excess, Art2 [facility] CENTERO2 Device/Flow/%Adult VentilatorBON [facility] Oxygen saturation in Blood98 %94.0 - 98.0 %[facility]C eQQ829.[address] [facility] HOSPITALC pH7.460HighBON [address]. FRANCIS HOSPITALC XJ3196.0 [facility] CENTERSample SiteArterial LineCLINCH VALLEY MEDICAL CENTERBasic Metabolic Panel w/ Reflex to MGon 59-68-3007Shwkh gap [Moles/Vol]9 mmol/L9 - 17 mmol/LBON [facility] HOSPITALCalcium [Mass/Vol]8.1 mg/dLLow8.6 - 10.4 mg/dLBON [facility]ERS HOSPITALChloride [Moles/Vol]108 mmol/LHigh98 - 107 mmol/LBON [facility]RINERS HOSPITALCO2 [Moles/Vol]20 mmol/L20 - 31 mmol/LBON [facility] Creatinine [Mass/Vol]0.73 mg/dL0.50 - 0.90 mg/dLBON [facility] HOSPITALGFR >60>60 mL/minCLINCH VALLEY MEDICAL CENTERGFR Non->60 >60 mL/minCLINCH VALLEY MEDICAL CENTERGFR/1.73 sq M.predicted MDRD (S/P/Bld) [Vol rate/Area][facility] CENTERGlucose [Mass/Vol]195 mg/zBIimk92 - 99 mg/dL [facility]ENTERInterpretation and review of laboratory resultsAbnormal B[facility]OSPITALPotassium [Moles/Vol]4.2 mmol/L3.7 - 5.3 mmol/LBON [facility]I SHRINERS HOSPITALSodium [Moles/Vol]137 mmol/L135 - 144 mmol/LBON [facility]INERS HOSPITALUrea nitrogen (BldV) [Mass/Vol]8 mg/dL6 - 20 mg/dLBON SECAURORA VALLEY VIEW MEDICAL CENTERCBC with Auto Differentialon 18-44-2999Gjewxunc Eos #0.00B[facility]OSPITALAbsolute Immature Granulocyte0.64HighBON [facility]ERS HOSPITALAbsolute Lymph #2.69B[facility] HOSPITALAbsolute Adair # 0.00LowBON [facility]RINERS HOSPITALBasophils (Bld) [#/Vol]0.00 10*3/uLBON [facility]RINERS HOSPITALBasophils/100 WBC (Bld)0 %0 - 2 %[facility] Eosinophils/100 WBC (Bld)0 %Low1 - 4 %[facility] CENTERHematocrit (Bld) [Volume fraction]24.4 %Low36.3 - 47.1 %[facility] CENTERHemoglobin (Bld) [Mass/Vol]7.9 g/dLLow11.9 - 15.1 g/dLBON [facility] HOSPITALImmature granulocytes/100 WBC (Bld)5 %Asud9VLGCLINCH VALLEY MEDICAL CENTERInterpretation and review of laboratory resultsAbnormalBON C[facility]IN[facility]RINERS HOSPITALLymphocytes/100 WBC (Bld)21 %Low24 - 44 %[facility]OSPITALH (RBC) [Entitic mass]30.5 pg25.2 - 33.5 pgNORTON COMMUNITY HOSPITALHC (RBC) [Mass/Vol]32.4 g/dL28.4 - 34.8 g/dL [facility] HOSPITALV (RBC) [Entitic vol]94.2 fL82.6 - 102.9 fLCLINCH VALLEY MEDICAL CENTERMonocytes/100 WBC (Bld)0 %Low1 - 7 %[facility] Morphology Malachi (Bld) [Interp]ANISOCYTOSIS PRESENTCLINCH VALLEY MEDICAL CENTERNRBC Automated0.00.0 per 100 WBCCLINCH VALLEY MEDICAL CENTERPlatelet distribution width (Bld) [Ratio]19.0 %High11.8 - 14.4 %[facility] CENTERPlatelet mean volume (Bld) [Entitic vol]8.8 fL8.1 - 13.5 fLCLINCH VALLEY MEDICAL CENTERPlatelets (Bld) [#/Vol]490 10*3/uLHighBON CINCINNATI SHRINERS HOSPITALRBC (Bld) [#/Vol]2.59 10*6/uLLow 3.95 - 5.11 m/uLBON CINCINNATI SHRINERS HOSPITALSeg Slpxnrgzkxs79 %High36 - 66 %B[facility] HOSPITALSegs Absolute9.47HighCLINCH VALLEY MEDICAL CENTERWBC (Bld) [#/Vol]12.8 10*3/uLHighBON [facility] / [facility] HEALTHCalcium, Ionizedon 14-95-7905Ovglybe [Moles/Vol]1.15 mmol/L1.13 - 1.33 mmol/LBON [facility] / AVERA HEALTHHemoglobin and Hematocriton 07-28-2021 Hematocrit (Bld) [Volume fraction]23.9 %Low36.3 - 47.1 %[facility] Hemoglobin (Bld) [Mass/Vol]8.2 g/dLLow11.9 - 15.1 g/dLBON [facility] Interpretation and review of laboratory resultsAbnormInova Health SystemNo Panel Informationon 74-98-4303Svgqyburdapycv and review of laboratory resultsAbnormCentra [facility] Glucose Fingerstickon 48-47-6868Csuwnpi [Mass/Vol]183 mg/zMBaeh97 - 105 mg/dLBON [facility]ERS HOSPITALInterpretation and review of laboratory results AbnormalBON [facility] / [facility]ER[facility] HEALTHGlucose [Mass/Vol]187 mg/oLIaxz23 - 105 mg/dLBON [facility] HOSPITALInterpretation and review of laboratory resultsAbnormalWINCHESTER [facility] Glucose [Mass/Vol]163 mg/dWSkpi12 - 105 mg/dLB[facility] Interpretation and review of laboratory resultsAbnormInova Health SystemGlucose [Mass/Vol]182 mg/xWAbaf58 - 105 mg/dLBON [facility] HOSPITALInterpretation and review of laboratory resultsAbnormalWINCHESTER MEDICAL CENTERPOCT Glucoseon 46-14-3334Bhlarbq [Mass/Vol] 177 mg/vCMlgr12 - 100 mg/dLBON [facility] HOSPITALCBC with Auto Differentialon 40-62-2238Zvfrcxvlb (Bld) [#/Vol]0.00 10*3/uLBON [facility] Basophils/100 WBC (Bld)0 %0 - 2 %[facility] CENTEREosinophils/100 WBC (Bld)0 %Low1 - 4 %[facility] CENTERHematocrit (Bld) [Volume fraction]25.3 %Low36.3 - 47.1 %[facility] CENTERHemoglobin (Bld) [Mass/Vol]8.5 g/dLLow 11.9 - 15.1 g/dLBON [facility] HOSPITALLymphocytes/100 WBC (Bld)19 %Low24 - 44 %[facility]ITALH (RBC) [Entitic mass]30.6 pg25.2 - 33.5 pgNORTON COMMUNITY HOSPITALV (RBC) [Entitic vol]91.0 fL82.6 - 102.9 fLCLINCH VALLEY MEDICAL CENTERMorphology Malachi (Bld) [Interp]ANISOCYTOSIS PRESENTBON CINCINNATI SHRINERS HOSPITALRBC (Bld) [#/Vol]2.78 10*6/uLLow3.95 - 5.11 m/uLCLINCH VALLEY MEDICAL CENTER Calcium, Ionizedon 56-36-8838Cqqhwtc [Moles/Vol]1.19 mmol/L1.13 - 1.33 mmol/LBON [facility] / AVERA HEALTHCulture, Blood 2on 07-27-2021 Bacteria identified Cx Nom (Unsp spec)NO GROWTH 5 DAYSBON [facility] Special RequestsL HAND 20MLCLINCH VALLEY MEDICAL CENTERSpecimen Description.BLOODWINCHESTER MEDICAL CENTERHemoglobin and Hematocriton 75-57-6151Ccjcfkwkwf (Bld) [Volume fraction]26.4 %Low36.3 - 47.1 %[facility]ENTERHemoglobin (Bld) [Mass/Vol]9.0 g/dLLow11.9 - 15.1 g/dLBON [facility] HEALTHInterpretation and review of laboratory resultsAbnormalWINCHESTER MEDICAL CENTERMagnesiumon 20-47-2914Gizauqlwh [Mass/Vol] 1.8 mg/dL1.6 - 2.6 mg/dLBON [facility] / AVERA HEALTHPO Glucose Fingerstickon 62-94-1968Zuccqcu [Mass/Vol]149 mg/rINzyt89 - 105 mg/dLBON [facility] HEALTHInterpretation and review of laboratory resultsAbnormalBON [facility] HEALTHGlucose [Mass/Vol]162 mg/vZUmwa50 - 105 mg/dLBON [facility] HEALTHInterpretation and review of laboratory results AbnormalBON [facility] / [facility]ER[facility] HEALTHGlucose [Mass/Vol]160 mg/iTCdey88 - 105 mg/dLBON [facility] HEALTHInterpretation and review of laboratory resultsAbnormalWINCHESTER MEDICAL [facility]ENTER Glucose [Mass/Vol]147 mg/bZTlxr01 - 105 mg/dLBON [facility]ALTH Interpretation and review of laboratory resultsAbnormalWELLMONT [facility]ALTH SYSTEM HEALTHGlucose [Mass/Vol]135 mg/xXAato10 - 105 mg/dLBON [facility] HEALTHInterpretation and review of laboratory resultsAbnormalCOMMUNITY HEALTH SYSTEMS HEALTHGlucose [Mass/Vol]204 mg/nNHhoe73 - 105 mg/dLBON [facility] HEALTHInterpretation and review of laboratory results AbnormalBON [facility] HEALTHBasic Metabolic Panel w/ Reflex to MGon 68-24-2922Gtxon gap [Moles/Vol]14 mmol/L9 - 17 mmol/LB[facility] HEALTHCalcium [Mass/Vol]8.2 mg/dLLow8.6 - 10.4 mg/dLBON [facility] HEALTHChloride [Moles/Vol]97 mmol/LLow98 - 107 mmol/LB[facility] HEALTHCO2 [Moles/Vol]30 mmol/L20 - 31 mmol/LB[facility] HEALTHCreatinine [Mass/Vol] 0.92 mg/dLHigh0.50 - 0.90 mg/dLBON [facility] HEALTHGFR >60 >60 mL/minB[facility] HEALTHGFR Non->60>60 mL/minBON [facility] MERCY HEALTHGFR/1.73 sq M.predicted MDRD (S/P/Bld) [Vol rate/Area][facility] HEALTHComment on above:Average GFR for 50-59 years old: 93 mL/min/1.73sq m Chronic Kidney Disease: <60 mL/min/1.73sq m Kidney failure: <15 mL/min/1.73sq m eGFR calculated using average adult body mass. Additional eGFR calculator available at: http://www.Flexcom/multiple_crcl_2011.htm Glucose [Mass/Vol]96 mg/dL70 - 99 mg/dLBON [facility] HEALTHInterpretation and review of laboratory resultsAbnormalBON [facility] HEALTHPotassium [Moles/Vol]2.0 mmol/LCritically low3.7 - 5.3 mmol/LB[facility]ALTH Sodium [Moles/Vol]141 mmol/L135 - 144 mmol/LBON [facility] HEALTHUrea nitrogen (BldV) [Mass/Vol]5 mg/dLLow6 - 20 mg/dLBON [facility] HEALTHUrea nitrogen/Creatinine (Bld) [Mass ratio]5LowBON [facility] HEALTHB[facility] HEALTHCBC with Auto Differentialon [id number] Eos #0.00[facility] HEALTHAbsolute Lymph #1.80[facility] HEALTHAbsolute Adair #0.80[facility] HEALTHBasophils (Bld) [#/Vol]0.00 10*3/uLBON [facility]ALTH Basophils/100 WBC (Bld)0 %0 - 2 %[facility] HEALTHEosinophils/100 WBC (Bld)0 %0 - 5 %[facility] HEALTHHematocrit (Bld) [Volume fraction]29.9 % Low36 - 46 %[facility] HEALTHHemoglobin.gastrointestinal spec 1 Ql (Stl) 10.1 g/dLLow12.0 - 16.0 g/dLBON [facility] HEALTHInterpretation and review of laboratory resultsAbnormalBON SECOHIOHE[facility] METHODIST HOSPITALLymphocytes/100 WBC (Bld)22 % 15 - 40 %BON [facility]OSPITALH (RBC) [Entitic mass]28.4 pg26 - 34 pgBON SECCLEVELAND CLIN[facility] FAIRVIEW HOSPITALHC (RBC) [Mass/Vol]33.8 g/dL31 - 37 g/dLBON SECCLEVELAND CLINIC FAIRVIEW HOSPITALV (RBC) [Entitic vol]83.9 fL80 - 100 fLBON [facility] Monocytes/100 WBC (Bld)10 %High4 - 8 %B[facility]INERS HOSPITALMorphology Malachi (Bld) [Interp]MODERATE ANISOCYTOSISBON SECOHIOHEALTH GROVE CITY METHODIST HOSPITALPlatelet distribution width (Bld) [Ratio]19.9 %High12.1 - 15.2 %BON [facility]P [facility] HEALTHPlatelets (Bld) [#/Vol]701 10*3/uLHighBON SECOURS [facility] HEALTHRBC (Bld) [#/Vol]3.56 10*6/uLLow4.0 - 5.2 m/uLBON SECOHIOHEALTH [facility] CITY METHODIST HOSPITALSegmented neutrophils/100 WBC (Bld)68 %47 - 75 %[facility] HEALTHSegs Absolute5.60BON SECOURS [facility] HOSPITALWBC (Bld) [#/Vol]8.2 10*3/uLBON [facility] HEALTHMagnesiumon 18-00-2628Uklytvwhl [Mass/Vol]1.6 mg/dL1.6 - 2.6 mg/dLBON SECVETERAN[facility] HEALTHCBC with Auto Differentialon [id number] Eos #0.10BON SECOHIOHE[facility]IST HOSPITALAbsolute Lymph #1.60BON SECOURS [facility]S HOSPITALAbsolute Adair #1.10HighBON SECOHIOHEALTH GROVE CITY METHODIST HOSPITALBasophils (Bld) [#/Vol]0.00 10*3/uLBON SECOHIOHE[facility] HOSPITALBasophils/100 WBC (Bld)0 %0 - 2 %[facility]OSPITALEosinophils/100 WBC (Bld)1 %0 - 5 %[facility] HEALTHHematocrit (Bld) [Volume fraction]31.2 %Low36 - 46 %[facility] CENTERHemoglobin.gastrointestinal spec 1 Ql (Stl)10.4 g/dLLow12.0 - 16.0 g/dLBON [facility] HOSPITALInterpretation and review of laboratory resultsAbnormalBON [facility]RINERS HOSPITALLymphocytes/100 WBC (Bld)20 %15 - 40 %[facility]ITALH (RBC) [Entitic mass]28.1 pg26 - 34 pgBON [facility]ERNSE[facility]ORIAL HOSPITALHC (RBC) [Mass/Vol]33.2 g/dL31 - 37 g/dLBON [facility]ERNSEY MEMORIAL HOSPITALV (RBC) [Entitic vol]84.7 fL80 - 100 fLBON [facility] HOSPITALMonocytes/100 WBC (Bld)13 %High4 - 8 %[facility] HEALTHMorphology Malachi (Bld) [Interp]MODERATE ANISOCYTOSISBON [facility]RINERS HOSPITALMorphology Malachi (Bld) [Interp]Scanned to verify automated differential.[facility] CENTERPlatelet distribution width (Bld) [Ratio] 20.5 %High12.1 - 15.2 %[facility] HEALTHPlatelets (Bld) [#/Vol]725 10*3/uLHighBON [facility] HEALTHRBC (Bld) [#/Vol]3.68 10*6/uLLow4.0 - 5.2 m/uLBON [facility]INERS HOSPITALSegmented neutrophils/100 WBC (Bld)66 %47 - 75 %[facility] CENTERSegs Absolute5.30BON [facility] HOSPITALWBC (Bld) [#/Vol] 8.1 10*3/uLBON [facility] HEALTHCOVID-19, Rapidon [id number] and review of laboratory resultsAbnormalBON MAIN [facility] MEDICAL CENTERRS-CoV-2 (COVID-19) RNA CAL+probe Ql (Unsp spec)DetectedAbnormal Not DetectedCLINCH VALLEY MEDICAL CENTERComment on above: Rapid NAAT: The specimen is [...] this assay. Fact sheet for Healthcare Providers: https://www.fda.gov/media/812833/download Fact sheet for Patients: https://www.fda.gov/media/153324/download Methodology: Isothermal Nucleic Acid Amplification Results reported to the appropriate Health Department Specimen Description.NASOPHARYNGEAL SWABBON SECASTRIA TOPPENISH HOSPITALNimbuzz HEALTHBON SECASTRIA TOPPENISH HOSPITALY HEALTHComprehensive Metabolic Panel w/ Reflex to MGon [id number] [Mass/Vol]2.5 g/dLLow3.5 - 5.2 g/dLBON SECOURS [facility] HOSPITALY HEALTHALP (Bld) [Catalytic activity/Vol]450 U/LHigh35 - 104 U/LBON SECOURS [facility]OSPITALY HEALTHALT [Catalytic activity/Vol]13 U/L5 - 33 U/LBON [facility] HEALTHAnion gap [Moles/Vol]16 mmol/L9 - 17 mmol/LBON SECOURS ChompY HEALTHAST [Catalytic activity/Vol]29 U/L<32 B[facility] ChompY HEALTHBilirubin [Mass/Vol]0.64 mg/dL0.30 - 1.20 mg/dLBON [facility] HEALTHCalcium [Mass/Vol]8.7 mg/dL8.6 - 10.4 mg/dLBON [facility] HEALTHChloride [Moles/Vol]102 mmol/L98 - 107 mmol/LBON [facility] HEALTHCO2 [Moles/Vol]25 mmol/L20 - 31 mmol/LB[facility] HEALTHCreatinine [Mass/Vol] 0.85 mg/dL0.50 - 0.90 mg/dLBON [facility] HEALTHFree PSA/Total PSA [Mass fraction]6.5 g/dL6.4 - 8.3 g/dLBON [facility] HEALTHGFR >60 >60 mL/minBON SECOURS [facility] HOSPITALY HEALTHGFR Non->60>60 mL/minCLINCH VALLEY MEDICAL CENTERGFR/1.73 sq M.predicted MDRD (S/P/Bld) [Vol rate/Area][facility] CENTERComment on above:Average GFR for 50-59 years old: 93 mL/min/1.73sq m Chronic Kidney Disease: <60 mL/min/1.73sq m Kidney failure: <15 mL/min/1.73sq m eGFR calculated using average adult body mass. Additional eGFR calculator available at: http://www.Flexcom/multiple_crcl_2012.htm Glucose [Mass/Vol]79 mg/dL70 - 99 mg/dLBON [facility] HOSPITALInterpretation and review of laboratory resultsAbnormalCLINCH VALLEY MEDICAL CENTERPotassium [Moles/Vol]2.2 mmol/LCritically low3.7 - 5.3 mmol/LBON [facility] Sodium [Moles/Vol]143 mmol/L135 - 144 mmol/LBON [facility]INERS HOSPITALUrea nitrogen (BldV) [Mass/Vol]7 mg/dL6 - 20 mg/dLBON [facility]INERS HOSPITALUrea nitrogen/Creatinine (Bld) [Mass ratio]8LowWINCHESTER MEDICAL CENTERLactate Dehydrogenaseon 89-65-7824Icwyzvhsoxirdl and review of laboratory resultsAbnormalCLINCH VALLEY MEDICAL CENTERLD317 U/YRjvy748 - 214 U/LBON [facility] HEALTHLactic Acidon 02-34-1107Bagouft [Moles/Vol]1 mmol/L0.5 - 2.2 mmol/LBON [facility] HEALTHMagnesiumon 17-79-5251Nshzomnteqmqzb and review of laboratory results AbnormalBON [facility] SHRINERS HOSPITALMagnesium [Mass/Vol]1.5 mg/dLLow1.6 - 2.6 mg/dL B[facility] HEALTHXR CHEST PORTABLEon 07-13-2021 Left infrahilar patchy airspace [...] anchor noted within the left humeral head. [facility] Loinel Olivas MD - 07/13/2021 EXAM: XR CHEST PORTABLE [...] 4 weeks post treatment to document resolution. [employer] Work Phone: radiology Study observation (narrative)[employer] Phone: XR CHEST PORTABLEOrdered By: Lionel Mas on 08-68-0100VNQ [employer] Work Phone: Basic Metabolic Panel w/ Reflex to MGon 07-10-2021 Anion gap [Moles/Vol]14 mmol/L9 - 17 mmol/LBON DanceOnCalcium [Mass/Vol]7.4 mg/dLLow8.6 - 10.4 mg/dLBON [employer] HEALTHChloride [Moles/Vol]110 mmol/LHigh98 - 107 mmol/LBON [employer] HEALTHCO2 [Moles/Vol] 16 mmol/LLow20 - 31 mmol/LBON DanceOnCreatinine [Mass/Vol]1.01 mg/dLHigh0.50 - 0.90 mg/dLBON DanceOnGFR >60>60 mL/minBON [employer] HEALTHGFR Non- Sgcgnuho39 mL/minLow>60BON DanceOnGFR/1.73 sq M.predicted MDRD (S/P/Bld) [Vol rate/Area][facility] CENTERGlucose [Mass/Vol]65 mg/dLLow70 - 99 mg/dLBON [facility] Potassium [Moles/Vol]3.3 mmol/LLow3.7 - 5.3 mmol/LBON [facility] SHRINERS HOSPITALSodium [Moles/Vol]140 mmol/L135 - 144 mmol/LBON [facility]RINERS HOSPITALUrea nitrogen (BldV) [Mass/Vol]7 mg/dL6 - 20 mg/dLBON [facility]ERS HOSPITALC-Reactive Proteinon 39-79-6036GXC [Mass/Vol]161.7 mg/LHigh0.0 - 5.0 mg/LBON [facility] HOSPITALCBC with Auto Differentialon [id number] Eos #0.18[facility] Absolute Immature Granulocyte0.00BON [facility] HOSPITALAbsolute Lymph #3.40BON [facility]ERS HOSPITALAbsolute Adair #0.72BON [facility] HOSPITALBasophils (Bld) [#/Vol]0.00 10*3/uLBON [facility] HOSPITALBasophils/100 WBC (Bld)0 %0 - 2 %[facility] CENTEREosinophils/100 WBC (Bld)1 %1 - 4 %[facility] Hematocrit (Bld) [Volume fraction]25.6 %Low36.3 - 47.1 %[facility] Hemoglobin.gastrointestinal spec 1 Ql (Stl)8.3 g/dLLow11.9 - 15.1 g/dLBON [facility] HOSPITALImmature granulocytes/100 WBC (Bld)0 %0BON [facility] HOSPITALInterpretation and review of laboratory resultsAbnormalBON [facility] SHRINERS HOSPITALLymphocytes/100 WBC (Bld)19 %Low24 - 44 %[facility]ITALH (RBC) [Entitic mass]27.8 pg25.2 - 33.5 pgBON GUERNSEY [facility]ORIAL HOSPITALHC (RBC) [Mass/Vol] 32.4 g/dL28.4 - 34.8 g/dLBON [facility] HEALTHMCV (RBC) [Entitic vol]85.6 fL 82.6 - 102.9 fLABRAZO SCOTTSDALE CAMPUS SECOURS [facility] HOSPITALY HEALTHMonocytes/100 WBC (Bld)4 %1 - 7 %BON SECOURS [facility] HEALTHMorphology Malachi (Bld) [Interp]ANISOCYTOSIS PRESENTBON SECASTRIA TOPPENISH HOSPITALY HEALTHNRBC Automated0.00.0 per 100 WBCBON SECOURS [facility]IAL HOSPITALY HEALTHPlatelet distribution width (Bld) [Ratio]20.4 %High11.8 - 14.4 %BON SECDynadmic MAG[facility]UD[facility] MEM[facility]IAL HOSPITALNimbuzz [facility] Platelet mean volume (Bld) [Entitic vol]9.0 fL8.1 - 13.5 fLBON SECOURS [facility] HOSPITALY HEALTHPlatelets (Bld) [#/Vol]530 10*3/uLHighBON SECOURS [facility] HOSPITALY HEALTHRBC (Bld) [#/Vol]2.99 10*6/uLLow3.95 - 5.11 m/uLBON SECJORGE MAGRUDER MEMORIAL HOSPITALY [facility]ITALSeg Srugcmnkvhx61 %High36 - 66 %BON SECRetidoc PARK[facility]ALTH BRYAN HOSPITALSegs Darjhlnp42.60HighBON SECOURS [facility]ATIONWIDE CHILDREN'S HOSPITALWBC (Bld) [#/Vol]17.9 10*3/uLHighBON [facility] HEALTHCOVID-19, Rapidon [id number]-CoV-2 (COVID-19) RNA CAL+probe Ql (Unsp spec)Not detectedNot DetectedBON SECDynadmic [facility]ATION[facility] CHILDREN'S HOSPITALSpecimen Description .NASOPHARYNGEAL SWABBON SEC[facility] SECDynadmic [facility] HEALTHCT CERVICAL SPINE WO CONTRASTon [id number] RIS CONSOLIDATEDMHPN RIS CONSOLIDATEDBON SECDynadmic [facility] HOSPITALNimbuzz HEALTH Work Phone: radiology Study observation (narrative)BON [employer] Work Phone: cT CERVICAL SPINE WO CONTRASTOrdered By: Earl Jose F on [id number] [employer] HEALTH Work Phone: Insert PICC lineon [id number] SECRetidoc HEALTH Work Phone: Magnesiumon 67-64-5396Fdxgtfwxt [Mass/Vol]1.8 mg/dL1.6 - 2.6 mg/dLBON [facility] CENTERShoorKABRAZO SCOTT[facility] DanceOnNo Panel Information on 62-65-6401Tvzklbfebsjeah and review of laboratory resultsAbnormalBON [facility] MEDICAL CENTERJORGE [facility] HOSPITALNimbuzz [facility]PITALRetidoc [facility]OS[facility]ITALPOC Glucose Fingerstickon 45-34-7563Jauw[place] [Mass/Vol]137 mg/tHTvtq56 - 105 mg/dLBON MediaSpike [facility] HOSPITALInterpretation and review of laboratory resultsAbnormalBON [facility] MED[facility] CENTERJORGE [facility]IAL HOSPITALNimbuzz [facility] SECRetidoc HEALTHGlucose [Mass/Vol]77 mg/dL65 - 105 mg/dLBON [facility] MEDICAL CENTERDynadmic [facility]OSPITALNimbuzz [facility] MediaSpike [facility] HOSPITALXR CERVICAL SPINE FLEXION AND EXTENSIONon [id number] RIS CONSOLIDATEDMHPN RIS [facility] [employer] Work Phone: bON [employer] Work Phone: radiology Study observation (narrative)[facility] [employer] Work Phone: basic Metabolic Panel w/ Reflex to MGon 07-09-2021 Anion gap [Moles/Vol]11 mmol/L9 - 17 mmol/LBON DanceOnCalcium [Mass/Vol]7.7 mg/dLLow8.6 - 10.4 mg/dLBON DanceOnChloride [Moles/Vol]109 mmol/LHigh98 - 107 mmol/LBON [employer] HEALTHCO2 [Moles/Vol] 20 mmol/L20 - 31 mmol/LBON DanceOnCreatinine [Mass/Vol]0.81 mg/dL 0.50 - 0.90 mg/dLBON [employer] HEALTHGFR >60>60 mL/minABRAZO SCOTTSDALE [facility]AMPUS MediaSpike HEALTHGFR Non->60>60 mL/minABRAZO SCOTTSDALE [facility]AMPUS DanceOnGFR/1.73 sq M.predicted MDRD (S/P/Bld) [Vol rate/Area]BON DanceOnGlucose [Mass/Vol]133 mg/eSGcqo34 - 99 mg/dLBON DanceOn Potassium [Moles/Vol]3.9 mmol/L3.7 - 5.3 mmol/LBON DanceOnSodium [Moles/Vol]140 mmol/L135 - 144 mmol/LBON [facility] HOSPITALUrea nitrogen (BldV) [Mass/Vol]7 mg/dL6 - 20 mg/dLBON [facility]ERS HOSPITALC-Reactive Proteinon [id number] [Mass/Vol]124.1 mg/LHigh0.0 - 5.0 mg/LBON [facility] HOSPITALCBC with Auto Differentialon 60-66-0125Uojfiqen Eos #0.40B[facility] Absolute Immature Granulocyte0.08BON [facility] HOSPITALAbsolute Lymph #2.06BON [facility]ERS HOSPITALAbsolute Adair #0.48BON [facility] HOSPITALBasophils (Bld) [#/Vol]10*3/uLBON [facility]ERS HOSPITALBasophils/100 WBC (Bld)0 %0 - 2 %[facility] CENTEREosinophils/100 WBC (Bld)4 %1 - 4 %[facility] Hematocrit (Bld) [Volume fraction]27.9 %Low36.3 - 47.1 %[facility] Hemoglobin.gastrointestinal spec 1 Ql (Stl)8.5 g/dLLow11.9 - 15.1 g/dLBON [facility] HOSPITALImmature granulocytes/100 WBC (Bld)1 %Whft4HTQCLINCH VALLEY MEDICAL CENTERInterpretation and review of laboratory resultsAbnormalBON [facility]RINERS HOSPITALLymphocytes/100 WBC (Bld)18 %Low24 - 43 %[facility]OSPITALH (RBC) [Entitic mass]27.3 pg25.2 - 33.5 pgBON [facility]ERNSE[facility]ORIAL HOSPITALHC (RBC) [Mass/Vol] 30.5 g/dL28.4 - 34.8 g/dLBON GUERNSEY MEMORIAL HOSPITALV (RBC) [Entitic vol]89.7 fL 82.6 - 102.9 fLCLINCH VALLEY MEDICAL CENTERMonocytes/100 WBC (Bld)4 %3 - 12 %[facility] CENTERNRBC Automated0.00.0 per 100 WBCCLINCH VALLEY MEDICAL CENTER Platelet distribution width (Bld) [Ratio]19.9 %High11.8 - 14.4 %[facility] HEALTHPlatelet mean volume (Bld) [Entitic vol]8.9 fL8.1 - 13.5 fLSENTARA HALIFAX REGIONAL HOSPITAL HEALTHPlatelets (Bld) [#/Vol]434 10*3/uLCLINCH VALLEY MEDICAL CENTER RBC (Bld) [#/Vol]3.11 10*6/uLLow3.95 - 5.11 m/uLCLINCH VALLEY MEDICAL CENTERRBC (Bld) [#/Vol]ANISOCYTOSIS PRESENTBON CINCINNATI SHRINERS HOSPITALSeg Bbxcebtmuup06 %High 36 - 65 %BON [facility] SHRINERS HOSPITALSegs Absolute8.48HighCLINCH VALLEY MEDICAL CENTER WBC (Bld) [#/Vol]11.5 10*3/uLHighWINCHESTER MEDICAL CENTERCOVID-19, Rapidon [id number]-CoV-2 (COVID-19) RNA CAL+probe Ql (Unsp spec)Not detectedNot DetectedCLINCH VALLEY MEDICAL CENTERSpecimen Description .NASOPHARYNGEAL SWABBON [facility] HEALTHNo Panel Informationon [id number] and review of laboratory resultsAbnormal [facility]ENTERPO Glucose Fingerstickon 00-04-0557Ehltdik [Mass/Vol]101 mg/dL65 - 105 mg/dLBON [facility] HEALTHGlucose [Mass/Vol]146 mg/cCPvdh62 - 105 mg/dLBON [facility] HEALTHInterpretation and review of laboratory resultsAbnormalBON [facility] HEALTHGlucose [Mass/Vol]99 mg/dL65 - 105 mg/dLBON [facility] HEALTHGlucose [Mass/Vol]138 mg/vPIabv36 - 105 mg/dLBON [facility] HEALTHInterpretation and review of laboratory results AbnormalBON [facility] HEALTHGlucose [Mass/Vol]171 mg/vCVolb17 - 105 mg/dLBON [facility] HOSPITALInterpretation and review of laboratory resultsAbnormalBON [facility] Glucose [Mass/Vol]279 mg/jCPitj83 - 105 mg/dLBON [facility] Interpretation and review of laboratory resultsAbnormalCLINCH VALLEY [facility]ENTER BON [facility] HEALTHGlucose [Mass/Vol]59 mg/dLLow65 - 105 mg/dLBON [facility] HEALTHInterpretation and review of laboratory resultsAbnormalBON [facility] HEALTHGlucose [Mass/Vol]59 mg/dLLow65 - 105 mg/dL B[facility] HEALTHInterpretation and review of laboratory resultsAbnormal [facility] HEALTHGlucose [Mass/Vol]58 mg/dLLow65 - 105 mg/dLBON [facility] HEALTHInterpretation and review of laboratory resultsAbnormalCOMMUNITY HEALTH SYSTEMS HEALTHGlucose [Mass/Vol]306 mg/vFNoqj55 - 105 mg/dLBON [facility] HEALTHInterpretation and review of laboratory resultsAbnormBallad Health HEALTHBasic Metabolic Panel w/ Reflex to MGon [id number] gap [Moles/Vol]10 mmol/L9 - 17 mmol/LBON [facility] HEALTHCalcium [Mass/Vol]7.3 mg/dLLow8.6 - 10.4 mg/dLBON [facility] HEALTHChloride [Moles/Vol]108 mmol/LHigh98 - 107 mmol/LBON [facility] HEALTHCO2 [Moles/Vol]20 mmol/L20 - 31 mmol/LBON [facility] HEALTHCreatinine [Mass/Vol]0.83 mg/dL0.50 - 0.90 mg/dLBON [facility] HEALTHGFR >60>60 mL/minSENTARA HALIFAX [facility]AL [facility] HEALTHGFR Non->60>60 mL/minSENTARA HALIFAX [facility]IONAL [facility]OS[facility]ITAL HEALTHGFR/1.73 sq M.predicted MDRD (S/P/Bld) [Vol rate/Area][facility] HEALTHGlucose [Mass/Vol]141 mg/dLHigh 70 - 99 mg/dLBON [facility] HEALTHInterpretation and review of laboratory resultsAbnormalSENTARA HALIFAX [facility]IONAL [facility]ITAL HEALTHPotassium [Moles/Vol]2.9 mmol/LCritically low3.7 - 5.3 mmol/LBON [facility] HEALTHSodium [Moles/Vol]138 mmol/L135 - 144 mmol/LBON [facility]INERS HOSPITALUrea nitrogen (BldV) [Mass/Vol]7 mg/dL6 - 20 mg/dLBON [facility] / AVERA HEALTHC-Reactive Proteinon [id number] [Mass/Vol]131.5 mg/LHigh0.0 - 5.0 mg/LBON [facility] Interpretation and review of laboratory resultsAbnormalBON [facility] BON [facility] HOSPITALCBC with Auto Differentialon [id number] Eos # 0.31BON SECOHIOHE[facility] HOSPITALAbsolute Immature Granulocyte0.05BON SECOHIOHEALTH [facility]IST HOSPITALAbsolute Lymph #1.87BON [facility] HOSPITALAbsolute Adair #0.37BON [facility] HOSPITALBasophils (Bld) [#/Vol]10*3/uLBON [facility]INERS HOSPITALBasophils/100 WBC (Bld)0 %0 - 2 %[facility]ENTEREosinophils/100 WBC (Bld)3 %1 - 4 % [facility] CENTERHematocrit (Bld) [Volume fraction]21.5 %Low36.3 - 47.1 % [facility] CENTERHemoglobin.gastrointestinal spec 1 Ql (Stl)6.9 g/dL Critically low11.9 - 15.1 g/dLBON [facility] HOSPITALImmature granulocytes/100 WBC (Bld)0 %0BON [facility] HOSPITALInterpretation and review of laboratory resultsAbnormalBON [facility]RINERS HOSPITALLymphocytes/100 WBC (Bld)17 %Low24 - 43 % [facility]PITALH (RBC) [Entitic mass]27.5 pg25.2 - 33.5 pgBON GUERNSEY MEMORIAL HOSPITALHC (RBC) [Mass/Vol]32.1 g/dL28.4 - 34.8 g/dLBON GUERNSEY MEMORIAL HOSPITALV (RBC) [Entitic vol]85.7 fL82.6 - 102.9 fLCLINCH VALLEY MED[facility] Monocytes/100 WBC (Bld)3 %3 - 12 %[facility]ENTERNRBC Automated0.00.0 per 100 WBCBON [facility] HEALTHPlatelet distribution width (Bld) [Ratio]18.6 %High11.8 - 14.4 %[facility] HEALTHPlatelet mean volume (Bld) [Entitic vol]8.9 fL8.1 - 13.5 fLBON SECOURS [facility]ITALY HEALTHPlatelets (Bld) [#/Vol]328 10*3/uLBON [facility]ITALY HEALTHRBC (Bld) [#/Vol]2.51 10*6/uLLow3.95 - 5.11 m/uL [facility] HEALTHRBC (Bld) [#/Vol]ANISOCYTOSIS PRESENTBON SEC[facility]ITALY HEALTHSeg Oviosnknsid48 %High36 - 65 %[facility] HEALTHSegs Absolute8.74 HighBON SEC[facility]RS [facility]UDER [facility]OR[facility]OSPITALY HEALTHWBC (Bld) [#/Vol]11.4 10*3/uLHighBON [facility] HEALTHCulture, Urineon [id number] identified Cx Nom (U)NO GROWTHABRAZO [facility] SECDynadmic [facility] HEALTHSpecimen Description.INDWELLING CATH URINEBON [facility] HEALTHBacteria identified Cx Nom (U)NO GROWTHABRAZO SCOTTSD[facility]AMPUS SECOURS [facility]ITALY HEALTHSpecimen Description.INDWELLING CATH URINE [facility] SECOHIOHEALTH GR[facility] CITY METHODIST HOSPITALHemoglobin and Hematocriton [id number] (Bld) [Volume fraction]25.5 %Low36.3 - 47.1 %[facility] SECDynadmic [facility] HEALTHHemoglobin.gastrointestinal spec 1 Ql (Stl)8.1 g/dLLow11.9 - 15.1 g/dLBON [facility] HEALTHInterpretation and review of laboratory results AbnormalBON [facility] HEALTHMRI BRAIN W WO CONTRAST on [id number] RIS CONSOLIDATEDPN RIS [facility] SECOH[facility] Work Phone: MRI BRAIN W WO CONTRASTOrdered By: Mai Villarreal on [id number] [facility] [employer] Work Phone: Magnesiumon [id number] [Mass/Vol]1.7 mg/dL1.6 - 2.6 mg/dLBON [facility] Glucose Fingerstickon [id number] [Mass/Vol]139 mg/aYTgik46 - 105 mg/dLBON [facility] HOSPITALInterpretation and review of laboratory resultsAbnormalWINCHESTER MEDICAL CENTERGlucose [Mass/Vol]140 mg/tCKypl52 - 105 mg/dLBON [facility] HEALTHInterpretation and review of laboratory results AbnormalBON [facility] HEALTHGlucose [Mass/Vol]192 mg/oCHeff67 - 105 mg/dLBON [facility] HOSPITALInterpretation and review of laboratory resultsAbnormalWINCHESTER MEDICAL CENTERBasic Metabolic Panel w/ Reflex to MGon [id number] gap [Moles/Vol]12 mmol/L9 - 17 mmol/LBON [facility]RINERS HOSPITALCalcium [Mass/Vol]7.8 mg/dLLow8.6 - 10.4 mg/dLBON [facility] HOSPITALChloride [Moles/Vol]106 mmol/L98 - 107 mmol/LBON [facility] SHRINERS HOSPITALCO2 [Moles/Vol]22 mmol/L20 - 31 mmol/LBON [facility] Creatinine [Mass/Vol]0.83 mg/dL0.50 - 0.90 mg/dLBON [facility]ERS HOSPITALGFR >60>60 mL/minCLINCH VALLEY MEDICAL CENTERGFR Non->60 >60 mL/minCLINCH VALLEY MEDICAL CENTERGFR/1.73 sq M.predicted MDRD (S/P/Bld) [Vol rate/Area][facility] HOSPITALGlucose [Mass/Vol]205 mg/lCUbrj37 - 99 mg/dL [facility]OSPITALPotassium [Moles/Vol]3.9 mmol/L3.7 - 5.3 mmol/LBON [facility]IN[facility] SHRINERS HOSPITALSodium [Moles/Vol]140 mmol/L135 - 144 mmol/LBON [facility]RINERS HOSPITALUrea nitrogen (BldV) [Mass/Vol]8 mg/dL6 - 20 mg/dLBON CINCINNATI SHRINERS HOSPITALC-Reactive Proteinon [id number] [Mass/Vol]141.9 mg/LHigh0.0 - 5.0 mg/L [facility] CENTERCBC with Auto Differentialon [id number] Eos # <0.03[facility]PITALY [facility]OSPITALAbsolute Immature Granulocyte0.06[facility]Y HEALTHAbsolute Lymph #0.72LowBON SECOURS MAG[facility]UDER [facility] HOSPITALY HEALTHAbsolute Adair #0.51[facility]P [facility] HEALTHBasophils (Bld) [#/Vol]10*3/uLBON [facility] HEALTH Basophils/100 WBC (Bld)0 %0 - 2 %[facility]ON [facility] HOSPITALEosinophils/100 WBC (Bld)0 %Low1 - 4 %[facility] CENTERHematocrit (Bld) [Volume fraction]27.9 %Low36.3 - 47.1 %[facility] CENTERHemoglobin.gastrointestinal spec 1 Ql (Stl)9.2 g/dLLow11.9 - 15.1 g/dLBON SECOHIOHEALTH GROVE CITY METHODIST HOSPITALImmature granulocytes/100 WBC (Bld)1 %Cciy4JWE [facility] HEALTHInterpretation and review of laboratory resultsAbnormalBON [facility] HOSPITALLymphocytes/100 WBC (Bld)7 %Low24 - 43 %[facility]ITALH (RBC) [Entitic mass]27.5 pg25.2 - 33.5 pgNORTON COMMUNITY HOSPITALHC (RBC) [Mass/Vol]33.0 g/dL28.4 - 34.8 g/dL [facility]OSPITALV (RBC) [Entitic vol]83.5 fL82.6 - 102.9 fLBON SECOHIOHEALTH GROVE CITY METHODIST HOSPITALMonocytes/100 WBC (Bld)5 %3 - 12 %[facility] CENTERNRBC Automated0.00.0 per 100 WBCABRAZO SCOTTSD[facility]US SECOHIOHEALTH GROVE CITY METHODIST HOSPITALPlatelet distribution width (Bld) [Ratio]17.2 %High11.8 - 14.4 %[facility] HEALTHPlatelet mean volume (Bld) [Entitic vol]9.1 fL8.1 - 13.5 fLBON [facility]P [facility] HEALTHPlatelets (Bld) [#/Vol]372 10*3/uLBON SECJORGE NATIONWIDE CHILDREN'S HOSPITALRBC (Bld) [#/Vol]3.34 10*6/uLLow3.95 - 5.11 m/uLBON [facility]RINERS HOSPITALRBC (Bld) [#/Vol]ANISOCYTOSIS PRESENTBON CINCIN[facility] SHRINERS HOSPITALSeg Fejvcgyokpz05 %High36 - 65 %[facility] HEALTHSegs Absolute9.77HighBON [facility] SHRINERS HOSPITALWBC (Bld) [#/Vol]11.1 10*3/uLBON SECOURS [facility] HEALTHMicroscopic Urinalysison 07-07-2021 Bacteria, UAMANYAbnormalNoneBON [facility] HEALTHCasts UA10 TO 20 HYALINE Reference range defined for non-centrifuged specimen.[facility] Epithelial Cells UA10 TO 20B[facility] HEALTHInterpretation and review of laboratory resultsAbnormalBON [facility]IN[facility] SHRINERS HOSPITALRBC, UA20 TO 50BON [facility] HOSPITALWBC, UA10 TO 20BON [facility] HEALTHNo Panel Informationon 97-03-1675Owldsugdemtwyr and review of laboratory results AbnormalBON [facility] Glucose Fingerstick on 05-38-4088Nsnbaqj [Mass/Vol]126 mg/bPAync14 - 105 mg/dLBON [facility] HEALTHInterpretation and review of laboratory resultsAbnormalBON [facility] HEALTHGlucose [Mass/Vol]163 mg/hVIrtr97 - 105 mg/dLBON [facility] HEALTHInterpretation and review of laboratory resultsAbnormalBON [facility] HEALTHGlucose [Mass/Vol]132 mg/pMSjnf69 - 105 mg/dLBON [facility] HEALTHInterpretation and review of laboratory results AbnormalBON [facility] HEALTHTYPE AND SCREENon 44-29-6618NSH/RhPositiveBON [facility] HEALTHArm Band NumberBE [id number] Memorial Hospitalood Bank Blood Product Expiration [id number] [facility] Centerood Bank ISBT Product Blood [id number] [facility] Centerood Bank Unit Type and RhPositiveBON [facility] Centerood product type Nom (BPU)Leukocyte Reduced Red CellBON [facility]CY HEALTHBlood product unit ID (Dose) [#][id number] [facility] HEALTHCrossmatch Result COMPATIBLEBON [facility] DENYY HEALTHDispense StatusTRANSFUSEDBON [facility] HEALTHExpiration Date07/09/2021,2359BON SECJORGE BARCLAYY HEALTHProduct Code Blood [id number] [facility] HEALTHTransfusion StatusOK TO TRANSFUSEBON [facility] DENYY HEALTHUnit [id number] [facility] HEALTHUnit Issue Date/Time [id number] [facility] HEALTHBON [facility] HEALTHUrinalysis with Reflex to Cultureon [id number] UrineNegativeNEGATIVEBON [facility] HEALTHColor, UAYellowYellowBON [facility] HEALTHGlucose, Ur1+AbnormalNEGATIVE [facility] HEALTHInterpretation and review of laboratory resultsAbnormal [facility] HEALTHKetones Ql (U)TRACEAbnormalNEGATIVEBON [facility] HEALTHLeukocyte esterase Test strip Ql (U)NegativeNEGATIVEBON [facility] HEALTHNitrite, UrineNegativeNEGATIVEBON [facility] HEALTHpH, UA5.5[facility] HEALTHProtein, UANegativeNEGATIVEB[facility] HEALTHSpecific [place], UA1.024[facility] HEALTHTurbidity UAClearClearBON [facility] HEALTHUrine HgbMODERATEAbnormalNEGATIVEBON [facility] HEALTHUrobilinogen, UrineNormalNormalBON [facility] HEALTHBON [facility] HEALTHBasic Metabolic Panel w/ Reflex to MGon 75-27-8590Zrfys gap [Moles/Vol]8 mmol/LLow9 - 17 mmol/L [facility] HEALTHCalcium [Mass/Vol]8.1 mg/dLLow8.6 - 10.4 mg/dLBON [facility] HEALTHChloride [Moles/Vol]102 mmol/L98 - 107 mmol/LBON [facility] HEALTHCO2 [Moles/Vol]23 mmol/L20 - 31 mmol/LBON [facility] Creatinine [Mass/Vol]0.9 mg/dL0.50 - 0.90 mg/dLBON [facility] HEALTHGFR >60>60 mL/minBON [facility] HEALTHGFR Non->60 >60 mL/minBON [facility] HEALTHGFR/1.73 sq M.predicted MDRD (S/P/Bld) [Vol rate/Area][facility] HEALTHGlucose [Mass/Vol]138 mg/nLUpwz42 - 99 mg/dL [facility] HEALTHInterpretation and review of laboratory resultsAbnormal [facility] HEALTHPotassium [Moles/Vol]3.2 mmol/LLow3.7 - 5.3 mmol/LBON [facility] HEALTHSodium [Moles/Vol]133 mmol/DBvg606 - 144 mmol/LBON [facility] HEALTHUrea nitrogen (BldV) [Mass/Vol]7 mg/dL6 - 20 mg/dLBON SECOURS [facility] HOSPITALY HEALTHBON [facility] HEALTHBlood Gas, Arterialon 03-85-6941Kwibb Test INFORMATION NOT PROVIDEDBON SECOURS MAGRUDER MEMORIAL HOSPITALY HEALTHCarboxyhemoglobin1.1 %0 - 5 %[facility] SAMBAOMZX9482%[facility] HEALTHHCO3 (Bld) [Moles/Vol]22.7 mmol/L22 - 27 mmol/LBON [facility] HEALTHOxygen saturation in Blood99.6 %94 - 100 %[facility] HEALTHpCO2, Amhmqvcx19.4LowBON [facility] HEALTHpH, Arterial7.529HighBON [facility] HEALTHpO2, Tqgxfqbe087.0HighBON [facility] HEALTHPositive Base Excess, Art0.5 mmol/L0.0 - 2.0 mmol/LBON [facility] HEALTHPt Temp37.0B[facility] HEALTHC-Reactive Proteinon 69-69-9829YBK [Mass/Vol]183.8 mg/LHigh0.0 - 5.0 mg/LBON [facility] HEALTHInterpretation and review of laboratory resultsAbnormalBON SEC[facility]RS [facility]ITALY HEALTHBON [facility]ITALY HEALTHCBC with Auto Differentialon 95-89-5975Fpvlvomx Eos #0.25[facility] HEALTHAbsolute Immature Granulocyte0.04[facility] HEALTHAbsolute Lymph # 1.52[facility] HEALTHAbsolute Adair #0.43[facility] HOSPITALY HEALTHBasophils (Bld) [#/Vol]10*3/uLBON [facility] HOSPITALY HEALTHBasophils/100 WBC (Bld)0 %0 - 2 % [facility] SEC[facility]ILDREN'S HOSPITALEosinophils/100 WBC (Bld)3 %1 - 4 %[facility]DREN'S HOSPITALHematocrit (Bld) [Volume fraction]27.5 %Low36.3 - 47.1 %[facility]EN'S HOSPITALHemoglobin.gastrointestinal spec 1 Ql (Stl)8.5 g/dLLow11.9 - 15.1 g/dLBON [facility]RS [facility]EN'S HOSPITALImmature granulocytes/100 WBC (Bld)1 %Xjeu2CSK [facility] HOSPITALInterpretation and review of laboratory resultsAbnormalBON SECOHIOHEALTH GROVE CITY METHODIST HOSPITALLymphocytes/100 WBC (Bld)20 %Low24 - 43 %BON [facility] HOSPITALH (RBC) [Entitic mass]26.0 pg25.2 - 33.5 pgBON SECCLEVELAND CLINIC FAIRVIEW HOSPITALHC (RBC) [Mass/Vol] 30.9 g/dL28.4 - 34.8 g/dLBON SECCLEVELAND CLINIC FAIRVIEW HOSPITALV (RBC) [Entitic vol]84.1 fL 82.6 - 102.9 fLBON SECOHIOHEALTH GROVE CITY METHODIST HOSPITALMonocytes/100 WBC (Bld)6 %3 - 12 %ARASELI SECOHIOHEALTH GROVE CITY METHODIST HOSPITALNRBC Automated0.00.0 per 100 WBCCLINCH [facility] Platelet distribution width (Bld) [Ratio]18.2 %High11.8 - 14.4 %BON SECOHIOHEALTH GROVE CITY METHODIST HOSPITALPlatelet mean volume (Bld) [Entitic vol]9.4 fL8.1 - 13.5 fLBON SECOURS [facility] HEALTHPlatelets (Bld) [#/Vol]378 10*3/uLBON [facility] RBC (Bld) [#/Vol]3.27 10*6/uLLow3.95 - 5.11 m/uLBON [facility]RS [facility] CHILDREN'S HOSPITALRBC (Bld) [#/Vol]ANISOCYTOSIS PRESENTBON SECOHIOHEALTH GROVE CITY METHODIST HOSPITALSeg Oxpuvbnweoz31 %High 36 - 65 %B[facility] HOSPITALY HEALTHSegs Absolute5.41B[facility] CHILDREN'S HOSPITALWBC (Bld) [#/Vol]7.7 10*3/uLBON SECVETERAN'[facility] HEALTHCalcium, Ionizedon 05-98-4418Csqvczn [Moles/Vol]1.14 mmol/L1.13 - 1.33 mmol/LBON SECOURS [facility] HEALTHCalcium [Moles/Vol]1.13 mmol/L1.13 - 1.33 mmol/LBON [facility] HEALTHChloride, Whole Bloodon 33-75-8861Jdeocfib [Moles/Vol]109 mmol/L98 - 110 mmol/LBON [facility] HEALTHCulture, Blood 1on 58-58-4306Hcphrqkw identified Cx Nom (Unsp spec)PositiveAbnormSentara Williamsburg Regional Medical CenterBacteria identified Cx Nom (Unsp spec)DIRECT GRAM STAIN FROM BOTTLE: GRAM POSITIVE COCCI IN [facility] identified Cx Nom (Unsp spec)STAPHYLOCOCCUS AUREUS For susceptibility, refer to previous culture.AbnormalCLINCH VALLEY MEDICAL CENTERBacteria identified Cx Nom (Unsp spec)(NOTE) Direct Gram Stain from bottle result called to and read back by: RICH Miranda 07/05/21 0115BCARILION ROANOKE COMMUNITY HOSPITALInterpretation and review of laboratory resultsAbnoVCU Health Community Memorial HospitalSpecial RequestsR HAND 10MLCLINCH VALLEY MEDICAL CENTERSpecimen Description .[facility]ENTERBacteria identified Cx Nom (Unsp spec)PositiveAbnormSentara Williamsburg Regional Medical CenterBacteria identified Cx Nom (Unsp spec)DIRECT GRAM STAIN FROM BOTTLE: GRAM POSITIVE COCCI IN [facility]ENTERBacteria identified Cx Nom (Unsp spec)STAPHYLOCOCCUS AUREUS This isolate is methicillin susceptible.AbnormalCLINCH VALLEY MEDICAL CENTERBacteria identified Cx Nom (Unsp spec)(NOTE) Direct Gram Stain from bottle result called to and read back by: RICH Miranda RN AT 0020 ON 07/05/21[facility] Interpretation and review of laboratory resultsAbnoVCU Health Community Memorial Hospital Special RequestsL HAND 20MLS[facility] HEALTHSpecimen Description.[facility] HEALTHFLUORO FOR SURGICAL PROCEDURESon 27-72-7515AKUR RIS CONSOLIDATEDGlucose, Whole Bloodon 14-09-5521Hzfyhir [Mass/Vol]131 mg/fBFhpz91 - 105 mg/dLBON SECOURS MAG[facility] HOSPITALY HEALTHMagnesiumon 14-35-7337Mejccdymz [Mass/Vol]2.3 mg/dL1.6 - 2.6 mg/dLBON [facility] HEALTH B[facility]ITALY HEALTHNo Panel Informationon 95-79-4259VDZ [facility] HEALTHInterpretation and review of laboratory resultsAbnormalBON SEC[facility]RS MAG[facility] HOSPITALY HEALTHBON [facility] HEALTHOPEN HEART PANELon 11-42-8122Scsfu TestINFORMATION NOT PROVIDEDBON SEC[facility]RS [facility]OSPITALY HEALTHCarboxyhemoglobin0.8 %0 - 5 %[facility] HEALTHChloride [Moles/Vol]108 mmol/L98 - 110 mmol/LBON [facility] DTKHRHNFP364%[facility] HEALTHGlucose [Mass/Vol]207 mg/kFImiu84 - 105 mg/dLBON SEC[facility] HOSPITALY HEALTHHCO3 (Bld) [Moles/Vol]21.4 mmol/LLow22 - 27 mmol/L [facility] HEALTHHematocrit (Bld) [Volume fraction]30.6 %Low36.3 - 47.1 % [facility] HEALTHHemoglobin.gastrointestinal spec 1 Ql (Stl)9.9LowBON [facility] HEALTHInterpretation and review of laboratory resultsAbnormalBON SEC[facility]OSPITALY HEALTHNegative Base Excess, Art2.3 mmol/LHigh0.0 - 2.0 mmol/LBON [facility] HEALTHOxygen saturation in Blood99.4 %94 - 100 %[facility] HEALTHpCO2, Pbgtodjw47.8B[facility] HEALTHpH, Arterial7.406B[facility] HEALTHpO2, Mcsnlorf648.0HighBON [facility] HEALTHPotassium [Moles/Vol] 3.7 mmol/L3.6 - 5.0 mmol/LBON [facility] HEALTHPt Temp35.9B[facility] HEALTHSodium [Moles/Vol]140 mmol/L136 - 145 mmol/LBON SECOURS [facility]OR[facility] HOSPITALY HEALTHOpen Heart H&Hon 89-34-3055Rhbqxmdfez (Bld) [Volume fraction]21.0 %Low36.3 - 47.1 % BON SECRetidoc P[facility] BRYAN HOSPITALHemoglobin.gastrointestinal spec 1 Ql (Stl)6.7Critically lowBON [facility] Glucose Fingerstickon 02-58-8240Zoqwinr [Mass/Vol]192 mg/hALwmn34 - 105 mg/dLBON SECOHIOHEALTH GROVE CITY METHODIST HOSPITALInterpretation and review of laboratory resultsAbnormalBON [facility] HOSPITALBON SECOURS [facility]ILDREN'S HOSPITALGlucose [Mass/Vol]136 mg/wTChom80 - 105 mg/dLBON [facility] HEALTH Interpretation and review of laboratory resultsAbnormalCLINCH VALLEY [facility]ENTER BON SEC[facility]ILDREN'S HOSPITALGlucose [Mass/Vol]132 mg/rDMknx16 - 105 mg/dLBON [facility] HEALTHInterpretation and review of laboratory resultsAbnormalMARY WASHINGTON [facility] HEALTHPotassium, Whole Bloodon 90-52-3472Otktxqidd [Moles/Vol]3.6 mmol/L3.6 - 5.0 mmol/LBON SECASTRIA TOPPENISH HOSPITALNimbuzz [facility] BR[facility] HOSPITALSodium, Whole Bloodon 24-86-9040Kgopbv [Moles/Vol]140 mmol/L136 - 145 mmol/LBON SECS[facility] Employyd.com [facility]AN HOSPITALBasic Metabolic Panel w/ Reflex to MGon 93-86-2768Irylj gap [Moles/Vol]10 mmol/L9 - 17 mmol/LBON SEC[facility] HEALTHCalcium [Mass/Vol]8.4 mg/dLLow8.6 - 10.4 mg/dLBON SEC[facility]RS [facility]OSPITALY HEALTHChloride [Moles/Vol]101 mmol/L98 - 107 mmol/L [facility] HEALTHCO2 [Moles/Vol]27 mmol/L20 - 31 mmol/LBON [facility]DREN'S HOSPITALCreatinine [Mass/Vol]0.79 mg/dL0.50 - 0.90 mg/dLBON SECOURS [facility] HOSPITALY HEALTH GFR >60>60 mL/minBON SECOURS ChompY HEALTHGFR Non->60>60 mL/minBON SECOURS Chomp HEALTHGFR/1.73 sq M.predicted MDRD (S/P/Bld) [Vol rate/Area]BON SECJAMF Software HEALTHGlucose [Mass/Vol]136 mg/dLHigh 70 - 99 mg/dLBON [facility] HOSPITALInterpretation and review of laboratory resultsAbnormalBON SECOHIOHEALTH GROVE CITY METHODIST HOSPITALPotassium [Moles/Vol]3.1 mmol/LLow3.7 - 5.3 mmol/LBON SECOHIOHEALTH GROVE CITY METHODIST HOSPITALSodium [Moles/Vol]138 mmol/L135 - 144 mmol/L BON [facility] HOSPITALUrea nitrogen (BldV) [Mass/Vol]7 mg/dL6 - 20 mg/dLBON SECAURORA VALLEY VIEW MEDICAL CENTERC-Reactive Proteinon 34-75-0997RUU [Mass/Vol]186.3 mg/LHigh0.0 - 5.0 mg/LBON SECOHIOHEALTH GROVE CITY METHODIST HOSPITALInterpretation and review of laboratory resultsAbnormalBON [facility] HEALTHCBC with Auto Differentialon 74-29-7063Zefysxeg Eos #0.15B[facility] CHILDREN'S HOSPITALAbsolute Immature Granulocyte0.06B[facility]'S HOSPITALAbsolute Lymph # 2.56B[facility]ATION[facility] CHILDREN'S HOSPITALAbsolute Adair #0.43BON SECOHIOHEALTH GROVE CITY METHODIST HOSPITALBasophils (Bld) [#/Vol]10*3/uLBON SEC[facility]RS NATION[facility] CHILDREN'S HOSPITALBasophils/100 WBC (Bld)0 %0 - 2 % BON [facility] HOSPITALEosinophils/100 WBC (Bld)2 %1 - 4 %[facility] CENTERHematocrit (Bld) [Volume fraction]24.6 %Low36.3 - 47.1 %[facility] CENTERHemoglobin.gastrointestinal spec 1 Ql (Stl)7.9 g/dLLow11.9 - 15.1 g/dLBON SECOHIOHEALTH GROVE CITY METHODIST HOSPITALImmature granulocytes/100 WBC (Bld)1 %Fjdh5CHK [facility] HOSPITALInterpretation and review of laboratory resultsAbnormalBON C[facility]INERS HOSPITALLymphocytes/100 WBC (Bld)26 %24 - 43 %BON [facility] HOSPITALH (RBC) [Entitic mass]26.5 pg25.2 - 33.5 pgBON GUERNSEY MEMORIAL HOSPITALHC (RBC) [Mass/Vol] 32.1 g/dL28.4 - 34.8 g/dLBON SECP [facility] HEALTHMCV (RBC) [Entitic vol]82.6 fL 82.6 - 102.9 fLCLINCH VALLEY MEDICAL CENTERMonocytes/100 WBC (Bld)4 %3 - 12 %BON [facility]ERS HOSPITALNRBC Automated0.00.0 per 100 WBCCLINCH VALLEY MEDICAL CENTER Platelet distribution width (Bld) [Ratio]17.5 %High11.8 - 14.4 %BON SECOHIOHEALTH GROVE CITY METHODIST HOSPITALPlatelet mean volume (Bld) [Entitic vol]9.7 fL8.1 - 13.5 fLBON SECOHIOHEALTH GROVE CITY METHODIST HOSPITALPlatelets (Bld) [#/Vol]341 10*3/uLBON [facility] RBC (Bld) [#/Vol]2.98 10*6/uLLow3.95 - 5.11 m/uLCLINCH VALLEY MEDICAL CENTERRBC (Bld) [#/Vol]ANISOCYTOSIS PRESENTBON CINCINNATI SHRINERS HOSPITALSeg Vrrkxepavmv46 %High 36 - 65 %BON [facility] SHRIN[facility] HOSPITALSegs Absolute6.79BON SECOHIOHEALTH GROVE CITY METHODIST HOSPITALWBC (Bld) [#/Vol]10.0 10*3/uLBON [facility] HEALTH Culture, Blood 1on 10-32-6219Jindcomz identified Cx Nom (Unsp spec)Positive AbnormalCLINCH VALLEY MEDICAL CENTERBacteria identified Cx Nom (Unsp spec)DIRECT GRAM STAIN FROM BOTTLE: GRAM POSITIVE COCCI IN CL[facility]ERSCL[facility] Bacteria identified Cx Nom (Unsp spec)STAPHYLOCOCCUS AUREUS This isolate is methicillin susceptible.AbnormalCLINCH VALLEY MEDICAL CENTERBacteria identified Cx Nom (Unsp spec)(NOTE) Direct Gram Stain from bottle result called to and read back by: VIRGIE Parker AT 0225 ON 07/04/21[facility] CENTERInterpretation and review of laboratory resultsAbnormalCLINCH VALLEY MEDICAL CENTERSpecial Requests LT HAND 2MLCLINCH VALLEY MEDICAL CENTERSpecimen Description.BLOODWINCHESTER MEDICAL CENTERFL MODIFIED BARIUM SWALLOW W VIDEOon 07-05-2021 PN RIS CONSOLIDATEDPN RIS CONSOLIDATEDCLINCH VALLEY MEDICAL [facility]ENTER Work Phone: [facility] Work Phone: radiology Study observation (narrative)ARASELI [employer] Phone: MRI BRAIN W WO CONTRASTon 12-70-1718Xpkfzpmon Study observation (narrative)BON [employer] Phone: MRI CERVICAL SPINE W WO CONTRASTon 51-79-0843ISHL RIS CONSOLIDATEDMHPN RIS [facility] [employer] Work Phone: mrI CERVICAL SPINE W WO CONTRASTOrdered By: Fredi Ramirez on 14-98-3000PZB [employer] Phone: Magnesiumon 58-38-5297Gqjzutich [Mass/Vol]1.9 mg/dL1.6 - 2.6 mg/dLBON [facility] / [facility] HEALTHMyelin Basic Protein, CSFon 81-77-5828Vcyvdz Basic Protein, CSF3.3 ng/mL0.00 - 5.50 ng/mLBON [facility] / AV[facility] HEALTHPO Glucose Fingerstickon 07-05-2021 Glucose [Mass/Vol]102 mg/dL65 - 105 mg/dLBON [facility] / [facility] HEALTHGlucose [Mass/Vol]185 mg/pWHuux53 - 105 mg/dLBON S[facility]LEBACK [facility]ORIAL MEDICAL CENTERTechnology Underwriting the Greater Good (TUGG)Interpretation and review of laboratory resultsAbnormalWINCHESTER MEDICAL CENTERGlucose [Mass/Vol]134 mg/nARbur80 - 105 mg/dLBON [facility] MEDICAL CENTERDynadmic [facility] HOSPITALTechnology Underwriting the Greater Good (TUGG)Interpretation and review of laboratory resultsAbnormalWINCHESTER MEDICAL CENTERGlucose [Mass/Vol]147 mg/qERijv22 - 105 mg/dLBON [facility]AND[facility] MEDICAL CENTERDynadmic [facility] HOSPITALTechnology Underwriting the Greater Good (TUGG)Interpretation and review of laboratory results AbnormalBON [facility] / [facility] HEALTHPotassiumon 07-05-2021 Potassium [Moles/Vol]3.8 mmol/L3.7 - 5.3 mmol/LBON [facility] / [facility] HEALTHBasic Metabolic Panel w/ Reflex to MGon 94-26-1816Cmfcr gap [Moles/Vol]10 mmol/L9 - 17 mmol/LBON [facility] HEALTHCalcium [Mass/Vol]8.0 mg/dLLow8.6 - 10.4 mg/dLBON [facility] HEALTHChloride [Moles/Vol]102 mmol/L98 - 107 mmol/LBON [facility] HEALTHCO2 [Moles/Vol]26 mmol/L20 - 31 mmol/LBON [facility] HEALTHCreatinine [Mass/Vol]0.72 mg/dL0.50 - 0.90 mg/dLBON [facility] HEALTHGFR >60>60 mL/minBON [facility] HEALTHGFR Non- >60>60 mL/minBON SECOURS MAG[facility]UD[facility] MEMORIAL HOSPITALY HEALTHGFR/1.73 sq M.predicted MDRD (S/P/Bld) [Vol rate/Area]B[facility]OSPITALY HEALTHGlucose [Mass/Vol]122 mg/xDUflu10 - 99 mg/dLBON SECOURS [facility]OSPITALY HEALTHInterpretation and review of laboratory resultsAbnormalBON [facility] HEALTHPotassium [Moles/Vol]3.5 mmol/LLow3.7 - 5.3 mmol/LBON [facility] HEALTHSodium [Moles/Vol]138 mmol/L135 - 144 mmol/LBON SECOURS [facility] MEMORIAL HOSPITALY HEALTHUrea nitrogen (BldV) [Mass/Vol]8 mg/dL6 - 20 mg/dLBON SECOURS MAGRUDER MEMORIAL HOSPITALY [facility] HOSPITALBON SECOU[facility] CHILDREN'S HOSPITALC-Reactive Proteinon 44-63-5854QSG [Mass/Vol]191.8 mg/LHigh0.0 - 5.0 mg/LBON SECOU[facility] HEALTH Interpretation and review of laboratory resultsAbnormalBON SECOU[facility] HEALTH B[facility] SEC[facility] HOSPITALY [facility] HOSPITALCBC with Auto Differentialon 68-73-0869Fwhotphk Eos # 0.18[facility] HEALTHAbsolute Immature Granulocyte0.05B[facility] HEALTHAbsolute Lymph #2.24[facility] HEALTHAbsolute Adair #0.55[facility] HEALTHBasophils (Bld) [#/Vol]10*3/uLBON [facility] HEALTHBasophils/100 WBC (Bld)0 %0 - 2 %[facility] HEALTHEosinophils/100 WBC (Bld)2 %1 - 4 % BON SECJORGE [facility] HEALTHHematocrit (Bld) [Volume fraction]22.8 %Low36.3 - 47.1 % [facility] HEALTHHemoglobin.gastrointestinal spec 1 Ql (Stl)7.4 g/dLLow 11.9 - 15.1 g/dLBON SECJORGE NATIONWIDE CHILDREN'S HOSPITALImmature granulocytes/100 WBC (Bld)1 % Vuwb7TLV [facility] HEALTHInterpretation and review of laboratory results AbnormalBON SECOHIOHEALTH GROVE CITY METHODIST HOSPITALLymphocytes/100 WBC (Bld)22 %Low24 - 43 %[facility]OS[facility]ITALH (RBC) [Entitic mass]26.5 pg25.2 - 33.5 pgABRAZO SCOTTSDALE CAMPUS SECCLEVELAND CLINIC FAIRVIEW HOSPITALHC (RBC) [Mass/Vol]32.5 g/dL28.4 - 34.8 g/dLBON SECCLEVELAND CLINIC FAIRVIEW HOSPITALV (RBC) [Entitic vol]81.7 fLLow82.6 - 102.9 fLCLINCH VALLEY MEDICAL [facility]ENTER Monocytes/100 WBC (Bld)5 %3 - 12 %InComm SECDynadmic [facility] HEALTHNRBC Automated0.00.0 per 100 WBCBON SECOURS [facility] HEALTHPlatelet distribution width (Bld) [Ratio]16.9 %High11.8 - 14.4 %[facility] HEALTHPlatelet mean volume (Bld) [Entitic vol]9.0 fL8.1 - 13.5 fLABRAZO SCOTTSDALE CAMPUS SECJORGE [facility] HEALTHPlatelets (Bld) [#/Vol]231 10*3/uLBON SECDynadmic [facility] HEALTHRBC (Bld) [#/Vol]2.79 10*6/uLLow3.95 - 5.11 m/uL [facility] HEALTHRBC (Bld) [#/Vol]ANISOCYTOSIS PRESENTBON CINCINNATI SHRINERS HOSPITALSeg Avfyrfxhzob21 %High36 - 65 %[facility] HEALTHSegs Absolute7.32 [facility] HEALTHWBC (Bld) [#/Vol]10.4 10*3/uLBON SECOURS [facility] HEALTHABRAZO [facility] SEC[facility] HEALTHCulture, Blood 1on [id number] identified Cx Nom (Unsp spec)PositiveAbnormalBON SECOURS [facility] HEALTHBacteria identified Cx Nom (Unsp spec)DIRECT GRAM STAIN FROM BOTTLE: GRAM POSITIVE COCCI IN [facility] CENTERBacteria identified Cx Nom (Unsp spec)Staphylococcus aureus Detected: mecA/C and MREJ Not Detected Methodology- Polymerase Chain Reaction (PCR)[facility] CENTERBacteria identified Cx Nom (Unsp spec) STAPHYLOCOCCUS AUREUSAbnoVCU Health Community Memorial HospitalBacteria identified Cx Nom (Unsp spec)(NOTE) Direct Gram Stain from bottle and Polymerase Chain Reaction (PCR) results called to and readback by: VIRGIE Joaquin on 07/03/21 at 7:45[facility] CENTERInterpretation and review of laboratory resultsAbLewisGale Hospital Alleghanyial RequestsL HAND 1 [facility] Hospitalimen Description.[facility] CENTERMISCELLANEOUS TESTINGon [id number] Out ReportPERFORMED AT [facility] / [facility] HEALTHTest NameMAYO ENC2 CSFWINCHESTER MEDICAL CENTERMRI CERVICAL SPINE W WO CONTRASTon [id number] Study observation (narrative)[facility] Work Phone: Magnesiumon [phone] [Mass/Vol]1.8 mg/dL1.6 - 2.6 mg/dLB[facility] Glucose Fingerstickon 50-22-2287Xkldwrf [Mass/Vol]113 mg/lYNixs53 - 105 mg/dLBON [facility]OSPITALInterpretation and review of laboratory resultsAbnormBuchanan General HospitalGlucose [Mass/Vol]188 mg/wIOduw27 - 105 mg/dLBON [facility] HOSPITALInterpretation and review of laboratory results [facility] HospitalGlucose [Mass/Vol]118 mg/rWRgjz78 - 105 mg/dLBON [facility]OSPITALInterpretation and review of laboratory resultsAbAvera [facility] Glucose [Mass/Vol]135 mg/dANwit93 - 105 mg/dLBON [facility] Interpretation and review of laboratory resultsAbnormalCLINCH VALLEY MEDICAL CENTER BON [facility] HOSPITALBasic Metabolic Panel w/ Reflex to MGon [id number] gap [Moles/Vol]11 mmol/L9 - 17 mmol/LBON [facility] HOSPITALCalcium [Mass/Vol] 8.3 mg/dLLow8.6 - 10.4 mg/dLBON SECOHIOHE[facility] HOSPITALChloride [Moles/Vol]98 mmol/L98 - 107 mmol/LBON SECOHIOHE[facility] HOSPITALCO2 [Moles/Vol]25 mmol/L20 - 31 mmol/LBON [facility] HOSPITALCreatinine [Mass/Vol]0.81 mg/dL0.50 - 0.90 mg/dL [facility] CENTERGFR >60>60 mL/minCLINCH VALLEY MEDICAL CENTERGFR Non->60>60 mL/minCLINCH VALLEY MEDICAL CENTERGFR/1.73 sq M.predicted MDRD (S/P/Bld) [Vol rate/Area][facility] CENTERGlucose [Mass/Vol]108 mg/dNNueh69 - 99 mg/dLBON [facility] HOSPITALInterpretation and review of laboratory resultsAbnormalCLINCH VALLEY MEDICAL CENTERPotassium [Moles/Vol]2.9 mmol/LCritically low3.7 - 5.3 mmol/LBON [facility] Sodium [Moles/Vol]134 mmol/JFsu631 - 144 mmol/LBON [facility] HOSPITALUrea nitrogen (BldV) [Mass/Vol]7 mg/dL6 - 20 mg/dLB[facility]ALTHC-Reactive Proteinon 61-80-1094YVG [Mass/Vol]166.3 mg/LHigh0.0 - 5.0 mg/LBON [facility]ITALInterpretation and review of laboratory results AbnormalB[facility] HEALTHCBC with Auto Differentialon 98-95-9830Mhfsmxml Eos #0.19[facility]OSPITALY [facility]ITALAbsolute Immature Granulocyte0.09B[facility] HOSPITALY [facility] HOSPITALAbsolute Lymph #2.40[facility] HOSPITALY HEALTHAbsolute Adair #0.64B[facility] CENTEROURS [facility]ILDREN'S HOSPITALBasophils (Bld) [#/Vol] 10*3/uLBON [facility] HOSPITALBasophils/100 WBC (Bld)0 %0 - 2 %[facility] CENTEREosinophils/100 WBC (Bld)1 %1 - 4 %[facility] Hematocrit (Bld) [Volume fraction]26.1 %Low36.3 - 47.1 %[facility] Hemoglobin.gastrointestinal spec 1 Ql (Stl)8.4 g/dLLow11.9 - 15.1 g/dLBON [facility] HOSPITALImmature granulocytes/100 WBC (Bld)1 %Vyfw3ILMCLINCH VALLEY MEDICAL CENTERInterpretation and review of laboratory resultsAbnormalBON CINCIN[facility]I SHRINERS HOSPITALLymphocytes/100 WBC (Bld)18 %Low24 - 43 %[facility]OSPITALH (RBC) [Entitic mass]26.1 pg25.2 - 33.5 pgBON GUERNSEY MEMORIAL HOSPITALHC (RBC) [Mass/Vol] 32.2 g/dL28.4 - 34.8 g/dLBON GUERNSEY MEMORIAL HOSPITALV (RBC) [Entitic vol]81.1 fL Low82.6 - 102.9 fLCLINCH VALLEY MEDICAL CENTERMonocytes/100 WBC (Bld)5 %3 - 12 %[facility] CENTERNRBC Automated0.00.0 per 100 WBCCLINCH VALLEY MEDICAL CENTER Platelet distribution width (Bld) [Ratio]16.5 %High11.8 - 14.4 %[facility] CENTERPlatelet mean volume (Bld) [Entitic vol]8.8 fL8.1 - 13.5 fLCLINCH VALLEY MEDICAL CENTERPlatelets (Bld) [#/Vol]261 10*3/uLBON [facility] RBC (Bld) [#/Vol]3.22 10*6/uLLow3.95 - 5.11 m/uLBON [facility] SHRINERS HOSPITALRBC (Bld) [#/Vol]ANISOCYTOSIS PRESENTCLINCH VALLEY MEDICAL CENTERSeg Ejgwgswvxbq25 %High 36 - 65 %[facility] CENTERSegs Uwxlnsjp67.31HighCLINCH VALLEY MEDICAL CENTER WBC (Bld) [#/Vol]13.6 10*3/uLHighWINCHESTER MEDICAL CENTERCulture, Blood 1on 75-06-1539Uibvdjzs identified Cx Nom (Unsp spec) PositiveAbnormSentara Williamsburg Regional Medical CenterBacteria identified Cx Nom (Unsp spec) DIRECT GRAM STAIN FROM BOTTLE: GRAM POSITIVE COCCI IN [facility] CENTERBacteria identified Cx Nom (Unsp spec)STAPHYLOCOCCUS AUREUS This isolate is methicillin susceptible.[facility] HospitalBacteria identified Cx Nom (Unsp spec)(NOTE) Direct Gram Stain from bottle result called to and read back by: VIRGIE Noland at 2200 on 07.01.2021 [facility] Interpretation and review of laboratory resultsAbSentara RMH Medical Center Specimen Description.[facility] CENTERECHO Complete 2D W Doppler W Coloron 50-32-9250QKHG STV CPACLINCH VALLEY MEDICAL CENTER Work Phone: eCHO Complete 2D W Doppler W ColorOrdered By: Sintia Salazar on 88-40-6589ENUCARILION [facility] Work Phone: fl MODIFIED BARIUM SWALLOW W VIDEOon 90-74-2507GWQB RIS [facility] RIS [facility] Work Phone: radiology Study observation (narrative)[facility] Work Phone: fl MODIFIED BARIUM SWALLOW W VIDEOOrdered By: Rufus Burnette on [id number] ROANOKE COMMUN[facility] Work Phone: Hemoglobin and Hematocriton 81-97-5599Ohbfekauzm (Bld) [Volume fraction]24.2 %Low36.3 - 47.1 %[facility] Hemoglobin.gastrointestinal spec 1 Ql (Stl)7.8 g/dLLow11.9 - 15.1 g/dLBON [facility]OSPITALInterpretation and review of laboratory resultsAbAvera Weskota Memorial Medical CenterHerpes simplex virus PCRon [id number], PCRNot [facility] Magnesiumon 61-95-3680Llytuettg [Mass/Vol]2.0 mg/dL1.6 - 2.6 mg/dLBON [facility] BONE SCAN 3 PHASEon 02-32-5777VOELERLANGER [facility]EDSO[facility] Work Phone: radiology Study observation (narrative)[facility] [employer] Work Phone: nm BONE SCAN 3 PHASEOrdered By: Mark Anthony Duke on [id number] [facility] Work Phone: poc Glucose Fingerstickon 39-35-3444Tiuqwie [Mass/Vol] 146 mg/fCXhzc31 - 105 mg/dLBON [facility]OSPITALInterpretation and review of laboratory resultsAbnormBuchanan General Hospital Glucose [Mass/Vol]108 mg/zCDgvm32 - 105 mg/dLBON [facility] Interpretation and review of laboratory resultsAbnormSentara Williamsburg [facility] Center BON [facility]OSPITALGlucose [Mass/Vol]168 mg/oIYiaz28 - 105 mg/dLBON [facility]OSPITALInterpretation and review of laboratory resultsAbnormalWINCHESTER MEDICAL CENTERGlucose [Mass/Vol]111 mg/qAStfs43 - 105 mg/dLBON [facility] HOSPITALInterpretation and review of laboratory results AbnormalB[facility] HEALTHPotassiumon 07-03-2021 Interpretation and review of laboratory resultsAbnormSentara [facility]burg [facility] Potassium [Moles/Vol]3.4 mmol/LLow3.7 - 5.3 mmol/LBON [facility] HEALTHXR CERVICAL SPINE FLEXION AND EXTENSIONon 52-11-0498UQPYERLANGER BLEDSOE [facility] Work Phone: radiology Study observation (narrative)[facility] Work Phone: xr CERVICAL SPINE FLEXION AND EXTENSIONOrdered By: Chanda Garland on [id number] [facility] Work Phone: Basic Metabolic Panel w/ Reflex to MGon 07-02-2021 Anion gap [Moles/Vol]11 mmol/L9 - 17 mmol/LBON SECASTRI[facility] HOSPITALY HEALTHCalcium [Mass/Vol]8.0 mg/dLLow8.6 - 10.4 mg/dLBON SECOU[facility] HOSPITALY HEALTHChloride [Moles/Vol]98 mmol/L98 - 107 mmol/LBON [facility] HEALTHCO2 [Moles/Vol]25 mmol/L20 - 31 mmol/LBON [facility] HEALTHCreatinine [Mass/Vol]0.66 mg/dL0.50 - 0.90 mg/dLBON [facility]P [facility] HEALTHGFR >60>60 mL/minBON [facility] HOSPITALGFR Non->60>60 mL/minSENTARA [facility] HEALTH GFR/1.73 sq M.predicted MDRD (S/P/Bld) [Vol rate/Area][facility] Glucose [Mass/Vol]67 mg/dLLow70 - 99 mg/dLBON [facility]OSPITALInterpretation and review of laboratory resultsAbnormalBON [facility] HOSPITALPotassium [Moles/Vol]2.9 mmol/LCritically low3.7 - 5.3 mmol/LBON [facility] Sodium [Moles/Vol]134 mmol/HOvm416 - 144 mmol/LBON SECOHIOHE[facility] GR[facility] CITY METHODIST HOSPITALUrea nitrogen (BldV) [Mass/Vol]9 mg/dL6 - 20 mg/dLBON SECAURORA VALLEY VIEW MEDICAL CENTERC-Reactive Proteinon [id number] [Mass/Vol]61.4 mg/LHigh0.0 - 5.0 mg/LBON [facility] HEALTHInterpretation and review of laboratory results AbnormalBON SECOHIOHEALTH GROVE CITY METHODIST HOSPITALBON SECOHIOHEALTH GROVE CITY METHODIST HOSPITALCBC with Auto Differentialon 24-17-5596Yqiltrgl Eos #0.36[facility] HEALTHAbsolute Immature Granulocyte0.11B[facility]OSPITALY HEALTHAbsolute Lymph #3.45[facility]CY HEALTHAbsolute Adair #0.69B[facility] HOSPITALBasophils (Bld) [#/Vol] 10*3/uLBON [facility] MAG[facility] HOSPITALOHIO STATE EAST HOSPITALBasophils/100 WBC (Bld)0 %0 - 2 %[facility] CENTEREosinophils/100 WBC (Bld)2 %1 - 4 %[facility] Hematocrit (Bld) [Volume fraction]28.2 %Low36.3 - 47.1 %[facility] Hemoglobin.gastrointestinal spec 1 Ql (Stl)9.0 g/dLLow11.9 - 15.1 g/dLBON [facility] HOSPITALImmature granulocytes/100 WBC (Bld)1 %Jbkd1RHECLINCH VALLEY MEDICAL CENTERInterpretation and review of laboratory resultsAbnormalCLINCH VALLEY MEDICAL CENTERLymphocytes/100 WBC (Bld)21 %Low24 - 43 %[facility]OSPITALH (RBC) [Entitic mass]25.9 pg25.2 - 33.5 pgNORTON COMMUNITY HOSPITALHC (RBC) [Mass/Vol] 31.9 g/dL28.4 - 34.8 g/dLBON GUERNSEY MEMORIAL HOSPITALV (RBC) [Entitic vol]81.3 fL Low82.6 - 102.9 fLCLINCH VALLEY MEDICAL CENTERMonocytes/100 WBC (Bld)4 %3 - 12 %[facility] CENTERNRBC Automated0.00.0 per 100 WBCCLINCH VALLEY MEDICAL CENTER Platelet distribution width (Bld) [Ratio]16.3 %High11.8 - 14.4 %[facility] CENTERPlatelet mean volume (Bld) [Entitic vol]8.8 fL8.1 - 13.5 fLCLINCH VALLEY MEDICAL CENTERPlatelets (Bld) [#/Vol]299 10*3/uLCLINCH VALLEY MEDICAL [facility]ENTER RBC (Bld) [#/Vol]3.47 10*6/uLLow3.95 - 5.11 m/uLCLINCH VALLEY MEDICAL CENTERRBC (Bld) [#/Vol]ANISOCYTOSIS PRESENTCLINCH VALLEY MEDICAL CENTERSeg Zyhofqpwfeu73 %High 36 - 65 %[facility]ENTERSegs Dspjpbrt76.06HighCLINCH VALLEY MEDICAL [facility]ENTER WBC (Bld) [#/Vol]16.7 10*3/uLHighB[facility] HEALTHCulture, Blood 1on 34-60-0826Sxstxzee identified Cx Nom (Unsp spec) PositiveAbnormSentara Williamsburg Regional Medical CenterBacteria identified Cx Nom (Unsp spec) DIRECT GRAM STAIN FROM BOTTLE: GRAM POSITIVE COCCI IN [facility] CENTERBacteria identified Cx Nom (Unsp spec)STAPHYLOCOCCUS AUREUS This isolate is methicillin susceptible.[facility] HospitalBacteria identified Cx Nom (Unsp spec)(NOTE) Direct Gram Stain from bottle result called to and read back by: VIRGIE Ferraro AT 2058 ON 06/30/21[facility]ENTERInterpretation and review of laboratory resultsAbnormSentara Williamsburg Regional Medical CenterSpecial RequestsLT HAND 9MLCLINCH VALLEY MEDICAL CENTERSpecimen Description.[facility] CENTERHemoglobin and Hematocriton 83-17-3964Qoghmnvred (Bld) [Volume fraction]24.8 %Low36.3 - 47.1 %[facility] Hemoglobin.gastrointestinal spec 1 Ql (Stl)8.1 g/dLLow11.9 - 15.1 g/dLBON [facility]OSPITALInterpretation and review of laboratory resultsAbAvera Weskota Memorial Medical CenterHematocrit (Bld) [Volume fraction] 29.0 %Low36.3 - 47.1 %[facility] CENTERHemoglobin.gastrointestinal spec 1 Ql (Stl)9.1 g/dLLow11.9 - 15.1 g/dLBON [facility]OSPITALInterpretation and review of laboratory resultsAbAvera Weskota Memorial Medical CenterMagnesiumon 89-18-4183Gjobejkxi [Mass/Vol]2.3 mg/dL1.6 - 2.6 mg/dLB[facility]POC Glucose Fingerstickon 07-02-2021 Glucose [Mass/Vol]122 mg/fDEdcw37 - 105 mg/dLBON [facility] Interpretation and review of laboratory resultsAbChildren's Care Hospital and SchoolGlucose [Mass/Vol]105 mg/dL65 - 105 mg/dLBON [facility] HEALTHGlucose [Mass/Vol]113 mg/eBRoqu23 - 105 mg/dLBON [facility] HEALTHInterpretation and review of laboratory results AbnormalBON [facility] HEALTHGlucose [Mass/Vol]78 mg/dL65 - 105 mg/dLBON [facility] HEALTHGlucose [Mass/Vol]111 mg/nVWttt67 - 105 mg/dLBON [facility] HEALTHInterpretation and review of laboratory resultsAbnormalBON [facility] HEALTHPotassiumon 09-93-2040Zxbeevnoljnefz and review of laboratory results AbnormalSENTARA [facility]IF[facility] HEALTHPotassium [Moles/Vol]3.5 mmol/LLow3.7 - 5.3 mmol/LBON [facility] HEALTHInterpretation and review of laboratory resultsAbnormalSENTARA [facility]IF[facility] HEALTHPotassium [Moles/Vol]3.5 mmol/LLow3.7 - 5.3 mmol/LBON [facility] HEALTHBasic Metabolic Panel w/ Reflex to MGon 29-99-6140Nurhk gap [Moles/Vol]10 mmol/L9 - 17 mmol/LBON [facility]OSPITALCalcium [Mass/Vol]8.2 mg/dLLow8.6 - 10.4 mg/dLBON [facility] HOSPITALChloride [Moles/Vol]102 mmol/L98 - 107 mmol/LBON [facility]IN[facility] HOSPITALCO2 [Moles/Vol]25 mmol/L20 - 31 mmol/LBON [facility] Creatinine [Mass/Vol]0.97 mg/dLHigh0.50 - 0.90 mg/dLBON [facility] HEALTHGFR >60>60 mL/minSENTARA [facility]IFAX [facility] HEALTHGFR Non- Cdzryeku28 mL/minLow>60BON [facility]OSPITALGFR/1.73 sq M.predicted MDRD (S/P/Bld) [Vol rate/Area][facility] HEALTHGlucose [Mass/Vol]117 mg/kIJgwn03 - 99 mg/dL [facility]ENTERInterpretation and review of laboratory resultsAbnormal B[facility] HEALTHPotassium [Moles/Vol]2.2 mmol/LCritically low3.7 - 5.3 mmol/LBON SECOHIOHEALTH GR[facility] CITY METHODIST HOSPITALSodium [Moles/Vol]137 mmol/L135 - 144 mmol/LBON [facility] HOSPITALUrea nitrogen (BldV) [Mass/Vol]18 mg/dL6 - 20 mg/dLBON SECAURORA VALLEY VIEW MEDICAL CENTERC-Reactive Proteinon 63-07-9128ZBB [Mass/Vol]38.5 mg/LHigh0.0 - 5.0 mg/LBON [facility]OSPITALInterpretation and review of laboratory resultsAbnormalBON SECAURORA VALLEY VIEW MEDICAL CENTERCBC with Auto Differentialon [id number] Eos #0.00[facility] HOSPITALAbsolute Immature Granulocyte0.00B[facility] HOSPITALAbsolute Lymph # 2.14B[facility]S HOSPITALAbsolute Adair #0.76BON SECOHIOHE[facility]IST HOSPITALBasophils (Bld) [#/Vol]0.00 10*3/uLBON SECOHIOHEALTH GROVE CITY [facility]IST HOSPITALBasophils/100 WBC (Bld)0 %0 - 2 %[facility]EN'S HOSPITALEosinophils/100 WBC (Bld)0 %Low1 - 4 %BON [facility] HOSPITALHematocrit (Bld) [Volume fraction]28.4 %Low36.3 - 47.1 %[facility] CENTERHemoglobin.gastrointestinal spec 1 Ql (Stl)9.0 g/dLLow11.9 - 15.1 g/dLBON SECOHIOHEALTH GROVE CITY METHODIST HOSPITALImmature granulocytes/100 WBC (Bld)0 %0BON [facility]OS[facility]ITALInterpretation and review of laboratory resultsAbnormalBON C[facility]ERS HOSPITALLymphocytes/100 WBC (Bld)17 %Low24 - 44 %[facility]ON [facility] HOSPITALH (RBC) [Entitic mass]26.2 pg25.2 - 33.5 pgNORTON COMMUNITY HOSPITALHC (RBC) [Mass/Vol]31.7 g/dL28.4 - 34.8 g/dLBON SECCLEVELAND CLINIC FAIRVIEW HOSPITALV (RBC) [Entitic vol]82.8 fL82.6 - 102.9 fLCLINCH VALLEY MEDICAL CENTERMonocytes/100 WBC (Bld)6 %1 - 7 %[facility] CENTERMorphology Malachi (Bld) [Interp]ANISOCYTOSIS PRESENTCLINCH VALLEY MEDICAL CENTERNRBC Automated0.00.0 per 100 WBCCLINCH VALLEY MEDICAL CENTER Platelet distribution width (Bld) [Ratio]16.2 %High11.8 - 14.4 %[facility] CENTERPlatelet mean volume (Bld) [Entitic vol]8.8 fL8.1 - 13.5 fLCLINCH VALLEY MEDICAL CENTERPlatelets (Bld) [#/Vol]284 10*3/uLCLINCH VALLEY MEDICAL [facility]ENTER RBC (Bld) [#/Vol]3.43 10*6/uLLow3.95 - 5.11 m/uLCLINCH VALLEY MEDICAL CENTERSeg Dskglnyuoyj88 %High36 - 66 %[facility]ENTERSegs Absolute9.70HighCLINCH VALLEY MEDICAL CENTERWBC (Bld) [#/Vol]12.6 10*3/uLHighWINCHESTER MEDICAL CENTERCulture, CSFon 17-76-5571Bicyzrvq identified Cx Nom (Unsp spec)NO GROWTH 3 DAYSBON [facility]ERS HOSPITALDirect ExamNO NEUTROPHILS SEENCLINCH VALLEY MEDICAL CENTERDirect ExamNO ORGANISMS SEENCLINCH VALLEY MEDICAL CENTERDirect ExamGram stain made from cytocentrifuged specimen. Organisms and cells will be concentrated.[facility] CENTERSpecimen Description.[facility] HEALTH ALLIANCEHemoglobin and Hematocriton 60-48-5167Ldesuhqzbv (Bld) [Volume fraction]27.2 %Low36.3 - 47.1 %[facility] CENTERDynadmic [facility] [employer] Hemoglobin.gastrointestinal spec 1 Ql (Stl)8.8 g/dLLow11.9 - 15.1 g/dLBON CHANDL[facility] REGIONAL MEDICAL CENTERDynadmic [facility] HEALTHInterpretation and review of laboratory resultsAbnormalWINCHESTER MEDICAL CENTERHematocrit (Bld) [Volume fraction] 26.7 %Low36.3 - 47.1 %[facility]AV[facility] HEALTH CENTERJAMF Software VersartisHemoglobin.gastrointestinal spec 1 Ql (Stl)8.6 g/dLLow11.9 - 15.1 g/dLBON [facility] REG[facility] MEDICAL CENTERDynadmic [facility] HEALTHInterpretation and review of laboratory resultsAbnormalWINCHESTER MEDICAL CENTERLyme Disease AB, CSFon 07-01-2021 burgdorferi Ab,CSF0.02<=0.99 [facility] HOSPITALBON [facility] HEALTHMagnesiumon 24-24-8822Rupzsoebt [Mass/Vol]1.9 mg/dL1.6 - 2.6 mg/dLBON [facility] HEALTHMagnesium [Mass/Vol]2.0 mg/dL1.6 - 2.6 mg/dLBON [facility] HEALTHOligoclonal Bandson 64-74-0892UII Isoelectric Focusing InterpretationSee Bath Community HospitalOligo BandsNegativeCLINCH VALLEY MEDICAL CENTEROligoclonal Bands NumberMatchReston Hospital CenterPOC Glucose Fingerstickon 32-97-8443Helmmhp [Mass/Vol]84 mg/dL65 - 105 mg/dLBON [facility] HEALTHGlucose [Mass/Vol]104 mg/dL65 - 105 mg/dLBON [facility] HEALTHGlucose [Mass/Vol]65 mg/dL65 - 105 mg/dLB[facility] Glucose [Mass/Vol]107 mg/wWAhcl28 - 105 mg/dLBON [facility] Interpretation and review of laboratory resultsAbnormCarilion [facility] HEALTHGlucose [Mass/Vol]115 mg/rYDnih10 - 105 mg/dLBON [facility] HOSPITALInterpretation and review of laboratory resultsAbnormBallad Health HEALTHPotassiumon 46-61-0553Wpjstnnhahbwyg and review of laboratory resultsAbnormCritical access hospital HEALTHPotassium [Moles/Vol]2.5 mmol/LCritically low3.7 - 5.3 mmol/LBON [facility] HEALTHInterpretation and review of laboratory resultsAbnormCritical access hospital HEALTHPotassium [Moles/Vol]2.4 mmol/LCritically low3.7 - 5.3 mmol/LBON [facility] HEALTHQuantiferon TB Goldon 58-34-9896HrckydDZJNU Mitogen1.11IU/mLBON SECOURS [facility] HEALTHQuantiFERON Nil 0.02IU/mLBON SEC[facility]RS [facility] HEALTHQuantiferon TB Minus NILNegativeNegativeBON [facility] HEALTHQuantiferon TB1 Minus NIL0.00B[facility] Quantiferon TB2 Minus NIL0.00BON [facility] West Nile Virus, CSFon 85-29-5034OFXZ NILE AB IGG CSF0.19<=1.29 IVBON SECOURS NATIONWIDE CHILDREN'S HOSPITALWEST NILE AB IGM CSF0<=0.89 IVABRAZO SCOTTSDALE [facility]AMPUS SECAURORA VALLEY VIEW MEDICAL CENTERCulture, Blood 1on 13-42-8849Zltphipt identified Cx Nom (Unsp spec) PositiveAbnormalCLINCH VALLEY MEDICAL CENTERBacteria identified Cx Nom (Unsp spec) DIRECT GRAM STAIN FROM BOTTLE: GRAM POSITIVE COCCI IN [facility] CENTERBacteria identified Cx Nom (Unsp spec)Staphylococcus aureus Detected: mecA/C and MREJ Not DetectedCLINCH VALLEY MEDICAL CENTERBacteria identified Cx Nom (Unsp spec)STAPHYLOCOCCUS AUREUS This isolate is methicillin susceptible. AbnormalCLINCH VALLEY MEDICAL CENTERBacteria identified Cx Nom (Unsp spec)(NOTE) Direct Gram Stain from bottle and Polymerase Chain Reaction (PCR) results called to and readback by: Dino Casillas at 0248 on 06/29/2021.[facility] Special RequestsRT FA 3 MLCLINCH VALLEY MEDICAL CENTERSpecimen Description.BLOODCLINCH VALLEY MEDICAL CENTERCulture, Blood 2on 22-17-5317Nzpxsqhb identified Cx Nom (Unsp spec)PositiveAbnormalCLINCH VALLEY MEDICAL CENTERBacteria identified Cx Nom (Unsp spec)DIRECT GRAM STAIN FROM BOTTLE: GRAM POSITIVE COCCI IN [facility] CENTERBacteria identified Cx Nom (Unsp spec)STAPHYLOCOCCUS AUREUS For susceptibility, refer to previous culture.[facility] Bacteria identified Cx Nom (Unsp spec)(NOTE) Direct Gram Stain from bottle result called to and read back by: Dino Casillas at 0245 on 06/29/2021.InComm [facility]ENTERDynadmic [facility] HOSPITALInterpretation and review of laboratory resultsAbnormalCLINCH VALLEY MEDICAL CENTERSpecial RequestsLEFT HAND 1 MLBON [facility]INERS HOSPITALSpecimen Description.BLOODBON [facility]AU [facility] / [facility]A HEALTHHemoglobin and Hematocriton 59-04-8038Nafavkgajm (Bld) [Volume fraction]29.3 %Low36.3 - 47.1 % BON [facility]INERS HOSPITALHemoglobin.gastrointestinal spec 1 Ql (Stl)9.4 g/dLLow 11.9 - 15.1 g/dLBON [facility] HOSPITALInterpretation and review of laboratory resultsAbnormalBON [facility] HEALTHPO Glucose Fingerstickon 48-38-5902Bteuvdr [Mass/Vol]173 mg/vHYpox84 - 105 mg/dLBON [facility] HEALTHInterpretation and review of laboratory resultsAbnormalWINCHESTER MEDICAL CENTERGlucose [Mass/Vol]182 mg/wFZqzv40 - 105 mg/dLBON [facility] MEDICAL CENTERJAMF Software HEALTHInterpretation and review of laboratory results AbnormalBON [facility] / [facility] HEALTHGlucose [Mass/Vol]171 mg/yJQzuy07 - 105 mg/dLBON [facility] HEALTHInterpretation and review of laboratory resultsAbnormalWINCHESTER MEDICAL CENTERXR FOOT LEFT (MIN 3 VIEWS)on [id number] RIS CONSOLIDATEDPN RIS CONSOLIDATED [facility] Work Phone: XR FOOT LEFT (MIN 3 VIEWS)Ordered By: Enedelia Garcia on [id number] [employer] Work Phone: Acetaminophen Levelon 64-64-2485Zszekhjocgqxq Level<5 Low10 - 30 ug/mLMercy HealthAmmoniaon 61-66-5917Dlikefw (P) [Moles/Vol]12 umol/L 11 - 51 umol/LMercy HealthMer HealthCBC with Auto Differentialon 06-28-2021 Absolute Bands #0.43Mercy HealthAbsolute Eos #Mercy HealthAbsolute Lymph #1.51 [facility] HealthAbsolute [place] #1.08HighMercy HealthBands2 %0 - 10 %[facility] Basophils (Bld) [#/Vol]0 - 2 %[facility] HealthBasophils AbsoluteMer Health Eosinophils %0 - 5 %[facility] CampusHematocrit (Bld) [Volume fraction]30.9 %Low36 - 46 %[facility] CampusHemoglobin.gastrointestinal spec 1 Ql (Stl)10.1 g/dLLow12.0 - 16.0 g/dLKettering Health Main CampusInterpretation and review of laboratory resultsAbnormal [facility] CampusLymphocytes/100 WBC (Bld)7 %Low15 - 40 %[facility] HospitalH (RBC) [Entitic mass]26.2 pg26 - 34 pgGenesis HospitalHC (RBC) [Mass/Vol]32.6 g/dL31 - 37 g/dLGenesis HospitalV (RBC) [Entitic vol]80.5 fL80 - 100 fLKettering Health Main Campus Monocytes/100 WBC (Bld)5 %4 - 8 %[facility] CampusMorphology Malachi (Bld) [Interp]Manual Differential PerformedKettering Health Main CampusPlatelet distribution width (Bld) [Ratio]17.1 %High12.1 - 15.2 %[facility] CampusPlatelets (Bld) [#/Vol]537 10*3/uLHighKettering Health Main CampusRBC (Bld) [#/Vol]3.83 10*6/uLLow4.0 - 5.2 m/uLKettering Health Main CampusSegmented neutrophils/100 WBC (Bld)86 %High47 - 75 %[facility] CampusSegs Ahvykwym69.48High [facility] CampusWBC (Bld) [#/Vol]21.5 10*3/uLCritically highThe Surgical Hospital at [facility]woods Health CKon [id number] [Catalytic activity/Vol]63 U/L26 - 192 U/LMercy HealthCOVID- 19, Rapidon 31-91-6261JWTC-CoV-2 (COVID-19) RNA CAL+probe Ql (Unsp spec)Not detectedNot DetectedKettering Health Main CampusComment on above: Rapid NAAT: The specimen is [...] management decisions. Fact sheet for Healthcare Providers: https://www.fda.gov/media/872890/download Fact sheet for Patients: https://www.fda.gov/media/500281/download Methodology: Isothermal Nucleic Acid Amplification Specimen Description.NASOPHARYNGEAL SWABMercy HealthMerFairfax HospitalCT ABDOMEN PELVIS W IV CONTRAST Additional Contrast? Noneon 06-28-2021 1. No evidence of bowel obstruction. 2. Normal appendix. 3. Status post cholecystectomy. [facility] CONSOLIDATEDEXAMINATION: CT ABDOMEN PELVIS W IV CONTRAST, [...] are noted at L4. [facility] Charly David MD - 06/28/2021 EXAMINATION: CT ABDOMEN PELVIS [...] 2. Normal appendix. 3. Status post cholecystectomy. [employer] Phone: radiology Study observation (narrative)[employer] Phone: cT ABDOMEN PELVIS W IV CONTRAST Additional Contrast? NoneOrdered By: Charly Mendoza on 03-27-7404HrnsaShoutOmatic Phone: ct Head WO Contraston . Poorly diagnostic examination due to patient motion. 2. No gross evidence of hemorrhage or mass effect. A telephone call regarding the findings in examination and limitations the study was made to and acknowledged by Dr. Boothe in the emergency department at 4:55 AM on 06/28/2021. [facility] RIS CONSOLIDATEDINDICATION: 56 years old; Female. Change in [...] evaluated in the present study. OTHER: None. [facility] RON Mims Kike - 06/28/2021 INDICATION: 56 years old; [...] emergency department at 4:55 AM on 06/28/2021. [employer] Phone: radiology Study observation (narrative)[employer] Phone: ct Head WO ContrastOrdered By: Kike Maguire on [id number] Phone: comprehensive Metabolic Panel w/ Reflex to MGon 76-20-5843Iwaejjn [Mass/Vol]4 g/dL3.5 - 5.2 g/dLPromedica Fostoria Community HospitalCoursmos HealthALP (Bld) [Catalytic activity/Vol]290 U/LHigh35 - 104 U/LMercy HealthALT [Catalytic activity/Vol]25 U/L5 - 33 U/LMercy HealthAnion gap [Moles/Vol]16 mmol/L9 - 17 mmol/LMercy Health AST [Catalytic activity/Vol]16 U/L<32[facility] HealthBilirubin [Mass/Vol]0.45 mg/dL 0.30 - 1.20 mg/dLSamaritan North Health Center HealthCalcium [Mass/Vol]9.9 mg/dL8.6 - 10.4 mg/dLMer HealthChloride [Moles/Vol]95 mmol/LLow98 - 107 mmol/LMercy HealthCO2 [Moles/Vol] 27 mmol/L20 - 31 mmol/LMercy HealthCreatinine [Mass/Vol]0.89 mg/dL0.50 - 0.90 mg/dLKettering Health Main CampusFree PSA/Total PSA [Mass fraction]8.5 g/dLHigh6.4 - 8.3 g/dL [facility] Main CampusGFR >60>60 mL/minSamaritan North Health Center HealthGFR Non->60>60 mL/minPromedica Fostoria Community Hospitalcy HealthGFR/1.73 sq M.predicted MDRD (S/P/Bld) [Vol rate/Area][facility] CampusComment on above:Average GFR for 50-59 years old: 93 mL/min/1.73sq m Chronic Kidney Disease: <60 mL/min/1.73sq m Kidney failure: <15 mL/min/1.73sq m eGFR calculated using average adult body mass. Additional eGFR calculator available at: http://www.[employer].Jiongji App/multiple_crcl_2011.htm Glucose [Mass/Vol]268 mg/kZZtty94 - 99 mg/dLKettering Health Main CampusInterpretation and review of laboratory resultsAbnormalSamaritan North Health Center HealthPotassium [Moles/Vol]3.4 mmol/L Low3.7 - 5.3 mmol/LMercy HealthSodium [Moles/Vol]138 mmol/L135 - 144 mmol/LMercy HealthUrea nitrogen (BldV) [Mass/Vol]25 mg/dLHigh6 - 20 mg/dLSamaritan North Health Center HealthUrea nitrogen/Creatinine (Bld) [Mass ratio]28HighMercy HealthMercy HealthEthanolon 41-36-6242Mgvnqfh [Mass/Vol]mg/dL<10 mg/dLMercy HealthEthanol percent<0.010% Mercy HealthLactic Acidon 95-80-3790Fogmgmm [Moles/Vol]1.6 mmol/L0.5 - 2.2 mmol/LMercy HealthMercy HealthLipaseon 75-86-0098Ihtxob [Catalytic activity/Vol] 30 U/L13 - 60 U/LMercy HealthMagnesiumon 49-80-1407Sekufiier [Mass/Vol]1.9 mg/dL 1.6 - 2.6 mg/dLMercy HealthMercy HealthMicroscopic Urinalysison 06-28-2021-Mercy HealthEpithelial Cells UA0 TO 2/HPFMercy HealthRBC, UA5 TO 10Mercy HealthMercy HealthNo Panel Informationon 53-84-5324Nitjeqfcoxontg and review of laboratory resultsAbnormalMer HealthMercy HealthMercy HealthSalicylateon 06-28-2021 Salicylate Lvl<1Low3 - 10 mg/dLMercy HealthUrinalysison 65-94-7757Nivvupbya UrineNegativeNEGATIVEMercy HealthColor, UAYellowYellowMercy HealthGlucose, Ur 1000 mg/dLAbnormalNEGATIVEMercy HealthInterpretation and review of laboratory resultsAbnormalMercy HealthKetones Ql (U)SMALLAbnormalNEGATIVEMercy Health Leukocyte esterase Test strip Ql (U)NegativeNEGATIVEMercy HealthNitrite, Urine NegativeNEGATIVEMercy HealthpH, UA7.0Mercy HealthProtein, UA2+AbnormalNEGATIVE Mercy HealthSpecific [place], UA1.010Mercy HealthTurbidity UAHazyAbnormalClear Mercy HealthUrinalysis CommentsMercy HealthUrine Hgb1+AbnormalNEGATIVEMercy HealthUrobilinogen, UrineNormalNormalMercy HealthMercy HealthUrine Drug Screenon 82-40-6850Eqadcwfpiee Screen, UrNegativeNEGATIVEMercy HealthComment on above: (Positive cutoff [...] sent to a reference laboratory for confirmation. [employer] CHEST PORTABLEon 06-28-2021 No acute abnormality. [facility] CONSOLIDATEDCLINICAL HISTORY: altered mental status COMPARISON: none FINDINGS: Portable AP view of the chest obtained. Cardiomediastinal silhouette is normal. Lungs are clear, no evidence of infiltrate, suspicious nodule, or mass. No evidence of significant pleural fluid on this portable projection. No acute bony abnormality. [facility] Leonardo Dougherty MD - 06/28/2021 CLINICAL HISTORY: altered mental status COMPARISON: none FINDINGS: Portable AP view of the chest obtained. Cardiomediastinal silhouette is normal. Lungs are clear, no evidence of infiltrate, suspicious nodule, or mass. No evidence of significant pleural fluid on this portable projection. No acute bony abnormality. IMPRESSION: No acute abnormality. [employer] Phone: radiology Study observation (narrative)[employer] Phone: xr CHEST PORTABLEOrdered By: Leonardo Lopes on 75-98-2724E[facility] Work Phone: [phone], MOLECULARon 62-73-6409DCKM-CoV-2 (COVID-19) RNA CAL+probe Ql (Unsp spec)Not detectedNormalNot [facility] Comment on above:Order Comment: This test was [...] at the following links: For Healthcare Providers: https://www.fda.gov/media/333441/download For Patients: https://www.fda.gov/media/028912/downloadPerformed By: #### [id number] #### LAB [address] [address] Skylar Niño M.D. [id number] FOOT LEFT WITHOUT CONTRASTon 41-14-5769LK FOOT LEFT WITHOUT CONTRASTEXAMINATION: MRFTLWO MR FOOT [...] GUADARRAMA on FriMay 22, 2021 7:54:35 AM EDTNoParma Community General HospitalComment on above:Order Comment: Injury/Trauma or Illness?:Illness/Other How long have you had these symptoms (acute/chronic)?:Acute Reason for exam?:ulcer in ball of foot at 1st -2nd metatarsal heads, (2nd toe has been removed) x1 month Type of Exam?:Initial Additional signs and symptoms?:patient is a diabeticXR FOOT LEFT 3+ VIEWS (STANDARD)on 33-89-0801AN FOOT LEFT 3+ VIEWS (STANDARD)EXAMINATION: XR FOOT [...] ID: [id number] Dictated by: LUIS POLANCO on [place] May 20, 2021 4:40:24 PM EDT Transcribed by: LUIS POLANCO on [place] May 20, 2021 4:40:24 PM EDT Finalized by: LUIS POLANCO on [place] May 20, 2021 4:40:24 PM EDTNoParma Community General HospitalComment on above:Order Comment: Injury/Trauma or Illness?:Illness/Other How long have you had these symptoms (acute/chronic)?:Acute Reason for exam?:callused area to left plantar foot History of cancer?:u Surgeries, chemotherapy, or radiation?:u Type of Exam?:Initial Additional signs and symptoms?:CT ANGIOGRAM HEAD NECKon 14-71-3763CL ANGIOGRAM HEAD NECKEXAMINATION: CT ANGIOGRAM HEAD NECK [...] patent on the right. SCA patent bilaterally. AUDIO VISUAL FACILITIES ENGINEER patent bilaterally. Basilar artery and basilar [...] ID: [id number] Dictated by: KIKE MAGUIRE on [facility] May 19, 2021 3:53:28 AM EDT Transcribed by: KIKE MAGUIRE on [facility] May 19, 2021 3:53:28 AM EDT Finalized by: KIKE MAGUIRE on [facility] May 19, 2021 3:53:28 AM EDTNoParma Community General HospitalComment on above:Order Comment: Injury/Trauma or Illness?:Illness/Other How long have you had these symptoms (acute/chronic)?:Acute Reason for exam?:head and neck pain, sudden and severe Type of Exam?:Initial Additional signs and symptoms?:r/o vertebral artery dissectionMR BRAIN WITH AND WITHOUT CONTRASTon 61-90-7928NU BRAIN WITH AND WITHOUT CONTRASTEXAMINATION: MR BRAIN [...] on Sat May 19, 2021 10:41:14 PM EDTNoParma Community General HospitalComment on above:Order Comment: Injury/Trauma or Illness?:Illness/Other How long have you had these symptoms (acute/chronic)?:Acute Reason for exam?:H/A neck pain increased after visit to chiropractor office x 4 days ago Hx. of chronic neck pain / H/A's Type of Exam?:Initial Additional signs and symptoms?:naMR CERVICAL SPINE WITH AND WITHOUT CONTRASTon 54-59-2445SI CERVICAL SPINE WITH AND WITHOUT CONTRASTEXAMINATION: MR [...] ID: [id number] Dictated by: Pili FONTAINE on [place] May 20, 2021 8:14:06 AM EDT Transcribed by: JANY FORBES on [place] May 20, 2021 8:50:25 AM EDT Finalized by: Pili FONTAINE on [place] May 20, 2021 2:03:56 PM EDTNoParma Community General HospitalComment on above:Order Comment: Injury/Trauma or Illness?:Illness/Other How long have you had these symptoms (acute/chronic)?:Acute Reason for exam?:H/A neck pain increased after visit to chiropractor office x 4 days ago Hx. of chronic neck pain / H/A's Type of Exam?:Initial Additional signs and symptoms?:naUS ABDOMEN LIMITED STUDYon 10-79-8303YO ABDOMEN LIMITED STUDYEXAMINATION: US ABDOMEN LIMITED STUDY [...] ID: [id number] Dictated by: JOS FREDERICK on [facility] May 19, 2021 6:07:29 PM EDT Transcribed by: JOS FREDERICK on [facility] May 19, 2021 6:07:29 PM EDT Finalized by: JOS FREDERICK on [facility] May 19, 2021 6:07:29 PM EDTNoWooster Community Hospital on above:Order Comment: Injury/Trauma or Illness?:Illness/Other How long have you had these symptoms (acute/chronic)?:Acute Reason for exam?:elevated liver enzymes History of cancer?:u Surgeries, chemotherapy, or radiation?:u Type of Exam?:Initial Additional signs and symptoms?:nCOVID-19, MOLECULARon 99-44-3206LADG-CoV-2 (COVID-19) RNA CAL+probe Ql (Unsp spec)Not detectedNormalTrinity Health Livingston Hospital on above:Result Comment: This test was performed under the FDA's Emergency Use Authorization (EUA). Testing was performed using the Xpert Xpress SARS-CoV-2 RT-PCR Cybits assay on the GeneXpert Dx platform. This test has not been approved for use in asymptomatic patients and its performance in this patient population has not been evaluated. Negative results do not rule out the presence of SARS-CoV-2/COVID-19. Fact sheets for this EUA can be found at the following links: For Healthcare Providers: https://www.fda.gov/media/703187/download For Patients: https://www.fda.gov/media/752069/downloadPerformed By: #### [id number] #### [facility] [address] [address] Skylar Niño M.D. [id number] CERVICAL SPINE WITHOUT CONTRASTon [id number] CERVICAL SPINE WITHOUT CONTRASTEXAMINATION: CT CERVICAL SPINE [...] to severe right facet arthropathy at C5-C6. Srub-ci-aanjwerf stenosis of the right C5-C6 neural foramen [...] the cervical spine without central spinal stenosis. Lwoa-kj-vwwyxfmg stenosis the right C5-C6 neural foramen secondary to mild uncovertebral hypertrophy and moderate to severe right facet hypertrophy. Workstation ID: [id number] Dictated by: ALBERT MARIA on FriMay 18, 2021 5:23:47 PM EDT Transcribed by: ALBERT MARIA on FriMay 18, 2021 5:23:47 PM EDT Finalized by: ALBERT MARIA on FriMay 18, 2021 5:23:47 PM EDTUniversity Hospitals [facility] Comment on above:Order Comment: Injury/Trauma or Illness?:Injury/Trauma How long have you had these symptoms (acute/chronic)?:Acute Reason for exam?:severe neck pain and headache since chiropractic adjustment a couple days ago Type of Exam?:Initial Mechanism of injury?:chiropractic adjustment a couple days agoHV 24-2 STANDARD - OUon 81-84-4059TGZ 24-2 STANDARD - OUOD: Reliable: 0/16 FL, 0% FP, 0% FN Stable: worse Findings: superior alt MD: -11.18 (-7.05) OS: Reliable: 1/17 FL, 0% FP, 12% FN Stable: worse Findings: superior forming alt MD: -7.89 (-5.69)NormalOhiohealth Grove City Methodist HospitalBUN CREAon 69-92-7549Mjgcvenuxq [Mass/Vol]1.38 mg/dLHigh0.50 - 1.20 mg/dLMartin Memorial HospitalGFR/1.73 sq M.predicted CKD-EPI (S/P/Bld) [Vol rate/Area]44Low>=60 mL/min/1.49p8FVJMartin Memorial HospitalComment on above:Reported eGFR is based on the CKD-EPI 2021 equation using creatinine, age, and sex.Interpretation and review of laboratory resultsAbnormalOGenesis HospitalUrea nitrogen [Mass/Vol]27 mg/dLHigh7 - 25 mg/dLMartin Memorial HospitalUrea nitrogen/Creatinine [Mass ratio]20 mg/mgOSUniversity Hospitals Geneva Medical CenterOSUniversity Hospitals Geneva Medical CenterCreatinine [Mass/Vol]1.38 mg/dLHigh0.50-1.20Ohio[facility] City Methodist HospitalComment on above:Order Comment: Prior to first [facility] and every 2 weeks if baseline CR is within normal limits.Performed By: #### BCR #### [facility] (DEFAULT) [address] [place] [address]EQD/1.73 sq M.predicted among non-blacks MDRD (S/P/Bld) [Vol rate/Area]44 mL/min/{1.73_m2}Low>=60[facility] Comment on above:Order Comment: Prior to first [facility] Infusion and every 2 weeks if baseline CR is within normal limits.Result Comment: Reported eGFR is based on the CKD-EPI 2021 equation using creatinine, age, and sex.Performed By: #### BCR #### [facility] (DEFAULT) [address] [place] [address]Nzxk nitrogen [Mass/Vol]27 mg/dLHigh7-25Ohiohealth Grove City Methodist HospitalComment on above:Order Comment: Prior to first [facility] Infusion and every 2 weeks if baseline CR is within normal limits.Performed By: #### BCR #### [facility] (DEFAULT) [address] [place], [place] [address]Ahvj nitrogen/Creatinine [Mass ratio]20 mg/mgNoAvita Health System Ontario HospitalComment on above:Order Comment: Prior to first [facility] Infusion and every 2 weeks if baseline CR is within normal limits. Performed By: #### BCR #### [facility] (DEFAULT) [address] [place], [place] [address]XVJ AND ELECTRONIC DIFFon 16-75-5736Pemrqplld (Bld) [#/Vol] 10*3/uL0.00 - 0.15 K/uLOSUniversity Hospitals Geneva Medical CenterBasophils/100 WBC (Bld)0.2 %Martin Memorial HospitalDIFF STATUSElectronic DifferentialMartin Memorial Hospital Eosinophils (Bld) [#/Vol]0.16 10*3/uL0.00 - 0.42 K/uLMartin Memorial Hospital Eosinophils/100 WBC (Bld)1.9 %[facility] Memorial HospitalErythrocyte distribution width (RBC) [Ratio]15.4 %High10.8 - 14.9 %[facility] Memorial HospitalHematocrit (Bld) [Volume fraction]36.1 %34.9 - 44.3 %[facility] Memorial HospitalHemoglobin (Bld) [Mass/Vol]11.7 g/dL11.4 - 15.2 g/dLMartin Memorial HospitalImmature granulocytes (Bld) [#/Vol]10*3/uL<=0.09 K/uLMartin Memorial HospitalImmature granulocytes/100 WBC (Bld)0.2 %[facility] HospitalInterpretation and review of laboratory resultsAbnoOhioHealth Nelsonville Health CenterLymphocytes (Bld) [#/Vol]2.68 10*3/uL1.16 - 3.51 K/uLMartin Memorial HospitalLymphocytes/100 WBC (Bld)32.0 %The Jewish HospitalH (RBC) [Entitic mass]27.6 pg25.9 - 33.9 pgOSU Mercy Health – The Jewish HospitalMCHC (RBC) [Mass/Vol]32.4 g/dL31.4 - 35.9 g/dLMartin Memorial HospitalMCV (RBC) [Entitic vol]85.1 fL79.6 - 97.7 [facility] HospitalMonocytes (Bld) [#/Vol]0.37 10*3/uL0.22 - 0.87 K/[facility] HospitalMonocytes/100 WBC (Bld)4.4 %[facility] Memorial HospitalNeutrophils (Bld) [#/Vol]5.13 10*3/uL1.64 - 7.28 K/[facility] HospitalNucleated RBC/100 WBC (Bld) [Ratio]0.0 %<=0.2 /100 WBCMartin Memorial HospitalPlatelet mean volume (Bld) [Entitic vol]9.8 fL8.5 - 12.2 [facility] Platelets (Bld) [#/Vol]338 10*3/uL150 - 393 K/[facility] County HospitalRBC (Bld) [#/Vol]4.24 10*6/uLWayne HealthCare Main Campusegmented neutrophils/100 WBC (Bld)61.3 %[facility] Memorial HospitalWBC (Bld) [#/Vol]8.38 10*3/uL3.99 - 11.19 K/uLAntelope Valley Hospital Medical CenterBasophils (Bld) [#/Vol] 10*3/uLNormal0.00-0.15Ohio[facility] City Methodist HospitalComment on above:Order Comment: Prior to first [facility] Infusion and then every 2 weeks.until results within normal limits. Collect weekly if baseline is abnormal.Performed By: #### [id number] #### [facility] (DEFAULT) [address] [address]Uehmeugha/100 WBC (Bld)0.2 %NormalOhiohealth Grove City Methodist HospitalComment on above:Order Comment: Prior to first [facility] Infusion and then every 2 weeks.until results within normal limits. Collect weekly if baseline is abnormal.Performed By: #### [id number] #### [facility] (DEFAULT) [address] [address]GHJQ STATUSElectronic DifferentialNormalOhio Ashtabula General HospitalComment on above:Order Comment: Prior to first [facility] Infusion and then every 2 weeks.until results within normal limits. Collect weekly if baseline is abnormal.Performed By: #### [id number] #### [facility] (DEFAULT) [address] [address]Qdlpsmqnnoy (Bld) [#/Vol]0.16 10*3/uLNormal0.00-0.42Ohio[facility] Methodist HospitalComment on above:Order Comment: Prior to first [facility] Infusion and then every 2 weeks.until results within normal limits. Collect weekly if baseline is abnormal.Performed By: #### [id number] #### [facility] (DEFAULT) [address] [address]Gobwxfmwsid/100 WBC (Bld)1.9 %NormalOhiohealth Grove City Methodist HospitalComment on above:Order Comment: Prior to first [facility] Infusion and then every 2 weeks.until results within normal limits. Collect weekly if baseline is abnormal.Performed By: #### [id number] #### [facility] (DEFAULT) [address] [address]Cmmjlrisgz (Bld) [Volume fraction]36.1 %Rxgrlc01.9-44.3Ohio[facility] City Methodist HospitalComment on above:Order Comment: Prior to first [facility] Infusion and then every 2 weeks.until results within normal li mits. Collect weekly if baseline is abnormal.Performed By: #### [id number] #### [facility] (DEFAULT) [address] [address]Qixfbukltn (Bld) [Mass/Vol]11.7 g/mZYgighs91.4-15.2[facility] Methodist HospitalComment on above:Order Comment: Prior to first [facility]unex Infusion and then every 2 weeks.until results within normal limits. Collect weekly if baseline is abnormal.Performed By: #### [id number] #### [facility] (DEFAULT) [address] [address]Ebrcggxj Grans %0.2 %[facility] HospitalComment on above:Order Comment: Prior to first [facility]unex Infusion and then every 2 weeks.until results within normal limits. Collect weekly if baseline is abnormal.Performed By: #### [id number] #### [facility] (DEFAULT) [address] [address]Mqxwrtym Grans Absolute<0.04Normal<=0.09Ohio[facility] City Methodist HospitalComment on above:Order Comment: Prior to first [facility]unex Infusion and then every 2 weeks.until results within normal limits. Collect weekly if baseline is abnormal.Performed By: #### [id number] #### [facility] (DEFAULT) [address] [address]Mskijnxhuzu (Bld) [#/Vol]2.68 10*3/uLNormal1.16-3.51[facility] Methodist HospitalComment on above:Order Comment: Prior to first [facility]unex Infusion and then every 2 weeks.until results within normal limits. Collect weekly if baseline is abnormal.Performed By: #### [id number] #### [facility] (DEFAULT) [address] [address]Yscabzvtvoy/100 WBC (Bld)32.0 %[facility] HospitalComment on above:Order Comment: Prior to first Gamunex Infusion and then every 2 weeks.until results within normal limits. Collect weekly if baseline is abnormal.Performed By: #### [id number] #### [facility] (DEFAULT) [address] [address]WOK (RBC) [Entitic vol]85.1 lFTmmjjh43.6-97.7Ohio[facility] Methodist HospitalComment on above:Order Comment: Prior to first [facility]unex Infusion and then every 2 weeks.until results within normal limits. Collect weekly if baseline is abnormal.Performed By: #### [id number] #### [facility] (DEFAULT) [address] [address]Rlch Cell Hgb27.6 rzBqsbvj33.9-33.9[facility] Methodist HospitalComment on above:Order Comment: Prior to first Gamunex Infusion and then every 2 weeks.until results within normal limits. Collect weekly if baseline is abnormal.Performed By: #### [id number] #### [facility] (DEFAULT) [address] [address]Exhn Cell Hgb Conc32.4 g/tZCttzhz71.4-35.9[facility] HospitalComment on above:Order Comment: Prior to first Gamunex Infusion and then every 2 weeks.until results within normal limits. Collect weekly if baseline is abnormal.Performed By: #### [id number] #### [facility] (DEFAULT) [address] [address]Ulmsdwbmr (Bld) [#/Vol]0.37 10*3/uLNormal0.22-0.87[facility] Methodist HospitalComment on above:Order Comment: Prior to first Gamunex Infusion and then every 2 weeks.until results within normal limits. Collect weekly if baseline is abnormal.Performed By: #### [id number] #### [facility] (DEFAULT) [address] [address]Shuqxuyjk/100 WBC (Bld)4.4 %NormalOhiohealth Grove City Methodist HospitalComment on above:Order Comment: Prior to first Gamunex Infusion and then every 2 weeks.until results within normal limits. Collect weekly if baseline is abnormal.Performed By: #### [id number] #### [facility] (DEFAULT) [address] [address]Whijqmsao RBC0.0 /100 WBCNormal<=0.2[facility] Methodist HospitalComment on above:Order Comment: Prior to first Gamunex Infusion and then every 2 weeks.until results within normal limits. Collect weekly if baseline is abnormal.Performed By: #### [id number] #### [facility] (DEFAULT) [address] [address]Hsixhlkz mean volume (Bld) [Entitic vol]9.8 fLNormal8.5-12.2 [facility] HospitalComment on above:Order Comment: Prior to first [facility]unex Infusion and then every 2 weeks.until results within normal li mits. Collect weekly if baseline is abnormal.Performed By: #### [id number] #### [facility] (DEFAULT) [address] [address]Hooaruvlh (Bld) [#/Vol]338 10*3/fTFrxqve264-876WamiOhiohealth Grove City Methodist HospitalComment on above:Order Comment: Prior to first Gamunex Infusion and then every 2 weeks.until results within normal limits. Collect weekly if baseline is abnormal.Performed By: #### [id number] #### [facility] (DEFAULT) [address] [address]DKY (Bld) [#/Vol]4.24 10*6/uLNormal3.91-5.04[facility] HospitalComment on above:Order Comment: Prior to first Gamunex Infusion and then every 2 weeks.until results within normal limits. Collect weekly if baseline is abnormal.Performed By: #### [id number] #### [facility] (DEFAULT) [address] [address]UGH Mstbiikzlrdg99.4 %High10.8-14.9[facility] Methodist HospitalComment on above:Order Comment: Prior to first Gamunex Infusion and then every 2 weeks.until results within normal limits. Collect weekly if baseline is abnormal.Performed By: #### [id number] #### [facility] (DEFAULT) [address] [address]Fsdx + Bands Auto61.3 %NormalOhiohealth Grove City Methodist HospitalComment on above:Order Comment: Prior to first Gamunex Infusion and then every 2 weeks.until results within normal limits. Collect weekly if baseline is abnormal.Performed By: #### [id number] #### [facility] (DEFAULT) [address] [address]Yahg + Bands,Absolute Auto5.13 K/uLNormal1.64-7.28[facility] Methodist HospitalComment on above:Order Comment: Prior to first Gamunex Infusion and then every 2 weeks.until results within normal limits. Collect weekly if baseline is abnormal.Performed By: #### [id number] #### [facility] (DEFAULT) [address] [address]LMI (Bld) [#/Vol]8.38 10*3/uLNormal3.99-11.19[facility] HospitalComment on above:Order Comment: Prior to first [facility] and then every 2 weeks.until results within normal limits. Collect weekly if baseline is abnormal.Performed By: #### [id number] #### [facility] (DEFAULT) [address] [place] [address]MBQ CREAon 35-48-3179Psswuelkmx [Mass/Vol]1.29 mg/dLHigh 0.50-1.20[facility] HospitalComment on above:Order Comment: Prior to first [facility] and every 2 weeks if baseline CR is within normal limits.Performed By: #### BCR #### [facility] (DEFAULT) [address] [place] [address]IEJ/1.73 sq M.predicted among non-blacks MDRD (S/P/Bld) [Vol rate/Area]48 mL/min/{1.73_m2}Low>=60[facility] Comment on above:Order Comment: Prior to first [facility] and every 2 weeks if baseline CR is within normal limits.Result Comment: Reported eGFR is based on the CKD-EPI 2020 equation using creatinine, age, and sex.Performed By: #### BCR #### [facility] (DEFAULT) [address] [address]Nnpp nitrogen [Mass/Vol]27 mg/dLHigh7-25[facility] HospitalComment on above:Order Comment: Prior to first [facility] Infusion and every 2 weeks if baseline CR is within normal limits.Performed By: #### BCR #### [facility] (DEFAULT) [address] [address]Ttoo nitrogen/Creatinine [Mass ratio]21 mg/mgMarion HospitalComment on above:Order Comment: Prior to first [facility] Infusion and every 2 weeks if baseline CR is within normal limits. Performed By: #### BCR #### [facility] (DEFAULT) [address] [address]PKW AND ELECTRONIC DIFFon [id number] (Bld) [#/Vol] 0.05 10*3/uLNormal0.00-0.15[facility] HospitalComment on above:Order Comment: Prior to first [facility] Infusion and then every 2 weeks.until results within normal limits. Collect weekly if baseline is abnormal.Performed By: #### [id number] #### [facility] (DEFAULT) [address] [place] [address]Janreqazy/100 WBC (Bld)0.6 %NormalOhiohealth Grove City Methodist HospitalComment on above:Order Comment: Prior to first [facility] Infusion and then every 2 weeks.until results within normal limits. Collect weekly if baseline is abnormal.Performed By: #### [id number] #### [facility] (DEFAULT) [address] [place] [address]YXQR STATUSElectronic DifferentialNoAvita Health System Ontario HospitalComment on above:Order Comment: Prior to first [facility] Infusion and then every 2 weeks.until results within normal limits. Collect weekly if baseline is abnormal.Performed By: #### [id number] #### [facility] (DEFAULT) [address] [address]Igxnefkmmqj (Bld) [#/Vol]0.23 10*3/uLNormal0.00-0.42[facility] HospitalComment on above:Order Comment: Prior to first [facility] Infusion and then every 2 weeks.until results within normal limits. Collect weekly if baseline is abnormal.Performed By: #### [id number] #### [facility] (DEFAULT) [address] [address]Imzwhysngab/100 WBC (Bld)2.6 %[facility] HospitalComment on above:Order Comment: Prior to first [facility] Infusion and then every 2 weeks.until results within normal limits. Collect weekly if baseline is abnormal.Performed By: #### [id number] #### [facility] (DEFAULT) [address] [address]Paoyzpqqkr (Bld) [Volume fraction]34.0 %Low34.9-44.3[facility] HospitalComment on above:Order Comment: Prior to first [facility] Infusion and then every 2 weeks.until results within normal limits. Collect weekly if baseline is abnormal.Performed By: #### [id number] #### [facility] (DEFAULT) [address] [address]Dcactrfojv (Bld) [Mass/Vol]10.7 g/dLLow11.4-15.2[facility] HospitalComment on above:Order Comment: Prior to first [facility] Infusion and then every 2 weeks.until results within normal limits. Collect weekly if baseline is abnormal.Performed By: #### [id number] #### [facility] (DEFAULT) [address] [address]Qkenljsq Grans %0.2 %[facility] HospitalComment on above:Order Comment: Prior to first [employer] Infusion and then every 2 weeks.until results within normal limits. Collect weekly if baseline is abnormal.Performed By: #### [id number] #### [facility] (DEFAULT) [address] [address]Ulvbnuue Grans Absolute<0.04Normal<=0.09[facility] HospitalComment on above:Order Comment: Prior to first [facility] Infusion and then every 2 weeks.until results within normal limits. Collect weekly if baseline is abnormal.Performed By: #### [id number] #### [facility] (DEFAULT) [address] [address]Bicieczfomb (Bld) [#/Vol]2.20 10*3/uLNormal1.16-3.51[facility] HospitalComment on above:Order Comment: Prior to first [employer] Infusion and then every 2 weeks.until results within normal limits. Collect weekly if baseline is abnormal.Performed By: #### [id number] #### [facility] (DEFAULT) [address] [address]Byfdecrgkmc/100 WBC (Bld)24.5 %NormalOhiohealth Grove City Methodist HospitalComment on above:Order Comment: Prior to first [employer] Infusion and then every 2 weeks.until results within normal limits. Collect weekly if baseline is abnormal.Performed By: #### [id number] #### [facility] (DEFAULT) [address] [address]OYC (RBC) [Entitic vol]85.4 aVQlexas41.6-97.7[facility] HospitalComment on above:Order Comment: Prior to first [employer] Infusion and then every 2 weeks.until results within normal limits. Collect weekly if baseline is abnormal.Performed By: #### [id number] #### [facility] (DEFAULT) [address] [address]Kvhu Cell Hgb26.9 piTddapw52.9-33.9[facility] HospitalComment on above:Order Comment: Prior to first [employer] Infusion and then every 2 weeks.until results within normal limits. Collect weekly if baseline is abnormal.Performed By: #### [id number] #### [facility] (DEFAULT) [address] [address]Nycn Cell Hgb Conc31.5 g/sREyyart57.4-35.9[facility] HospitalComment on above:Order Comment: Prior to first [employer] Infusion and then every 2 weeks.until results within normal limits. Collect weekly if baseline is abnormal.Performed By: #### [id number] #### [facility] (DEFAULT) [address] [address]Ghviapvsd (Bld) [#/Vol]0.41 10*3/uLNormal0.22-0.87[facility] HospitalComment on above:Order Comment: Prior to first [employer] Infusion and then every 2 weeks.until results within normal limits. Collect weekly if baseline is abnormal.Performed By: #### [id number] #### [facility] (DEFAULT) [address] [address]Vnbhwkuut/100 WBC (Bld)4.6 %NormalOhiohealth Grove City Methodist HospitalComment on above:Order Comment: Prior to first [employer] Infusion and then every 2 weeks.until results within normal limits. Collect weekly if baseline is abnormal.Performed By: #### [id number] #### [facility] (DEFAULT) [address] [address]Cheilegkw RBC0.0 /100 WBCNormal<=0.2[facility] HospitalComment on above:Order Comment: Prior to first [employer] Infusion and then every 2 weeks.until results within normal limits. Collect weekly if baseline is abnormal.Performed By: #### [id number] #### [facility] (DEFAULT) [address] [address]Trvctgid mean volume (Bld) [Entitic vol]9.8 fLNormal8.5-12.2 [facility] HospitalComment on above:Order Comment: Prior to first [employer] Infusion and then every 2 weeks.until results within normal li mits. Collect weekly if baseline is abnormal.Performed By: #### [id number] #### [facility] (DEFAULT) [address] [address]Gudhdbrkj (Bld) [#/Vol]389 10*3/jPPbgctd188-132BrnbOhiohealth Grove City Methodist HospitalComment on above:Order Comment: Prior to first [employer] Infusion and then every 2 weeks.until results within normal limits. Collect weekly if baseline is abnormal.Performed By: #### [id number] #### [facility] (DEFAULT) [address] [address]PTJ (Bld) [#/Vol]3.98 10*6/uLNormal3.91-5.04[facility] HospitalComment on above:Order Comment: Prior to first [employer] Infusion and then every 2 weeks.until results within normal limits. Collect weekly if baseline is abnormal.Performed By: #### [id number] #### [facility] (DEFAULT) [address] [address]EPU Ctviljkayzdx23.8 %Veaigo84.8-14.9OhMercy Health Perrysburg HospitalComment on above:Order Comment: Prior to first [employer] Infusion and then every 2 weeks.until results within normal limits. Collect weekly if baseline is abnormal.Performed By: #### [id number] #### [facility] (DEFAULT) [address] [address]Arur + Bands Auto67.5 %NormalOhiohealth Grove City Methodist HospitalComment on above:Order Comment: Prior to first [employer] Infusion and then every 2 weeks.until results within normal limits. Collect weekly if baseline is abnormal.Performed By: #### [id number] #### [facility] (DEFAULT) [address] [address]Cmrz + Bands,Absolute Auto6.07 K/uLNormal1.64-7.28OhMercy Health Perrysburg HospitalComment on above:Order Comment: Prior to first [employer] Infusion and then every 2 weeks.until results within normal limits. Collect weekly if baseline is abnormal.Performed By: #### [id number] #### [facility] (DEFAULT) [address] [address]YVG (Bld) [#/Vol]8.98 10*3/uLNormal3.99-11.19[facility] HospitalComment on above:Order Comment: Prior to first [facility] Infusion and then every 2 weeks.until results within normal limits. Collect weekly if baseline is abnormal.Performed By: #### [id number] #### [facility] (DEFAULT) [address] [address]JNN AND ELECTRONIC DIFFon 56-88-5942Prubsbqym (Bld) [#/Vol] 10*3/uLNormal0.00-0.15[facility] Medical CenterComment on above:Order Comment: Prior to first [employer] Infusion and then every 2 weeks.until results within normal limits. Collect weekly if baseline is abnormal.Performed By: #### [id number] #### [facility] (DEFAULT) [address] [address]Liuokhekz/100 WBC (Bld)0.3 %[facility] HospitalComment on above:Order Comment: Prior to first [employer] Infusion and then every 2 weeks.until results within normal limits. Collect weekly if baseline is abnormal.Performed By: #### [id number] #### [facility] (DEFAULT) [address] [address]MUQJ STATUSElectronic DifferentialNormalOVeterans Health AdministrationComment on above:Order Comment: Prior to first [employer]ex Infusion and then every 2 weeks.until results within normal limits. Collect weekly if baseline is abnormal.Performed By: #### [id number] #### [facility] (DEFAULT) [address] [address]Wkbpomecqes (Bld) [#/Vol]0.24 10*3/uLNormal0.00-0.42[facility] HospitalComment on above:Order Comment: Prior to first [employer] Infusion and then every 2 weeks.until results within normal limits. Collect weekly if baseline is abnormal.Performed By: #### [id number] #### [facility] (DEFAULT) [address] [address]Hrbhyzbjrxl/100 WBC (Bld)2.4 %[facility] HospitalComment on above:Order Comment: Prior to first [employer]ex Infusion and then every 2 weeks.until results within normal limits. Collect weekly if baseline is abnormal.Performed By: #### [id number] #### [facility] (DEFAULT) [address] [address]Ykpoljwaku (Bld) [Volume fraction]33.4 %Low34.9-44.3[facility] HospitalComment on above:Order Comment: Prior to first [employer]ex Infusion and then every 2 weeks.until results within normal limits. Collect weekly if baseline is abnormal.Performed By: #### [id number] #### [facility] (DEFAULT) [address] [address]Dwkykgbtha (Bld) [Mass/Vol]10.3 g/dLLow11.4-15.2[facility] HospitalComment on above:Order Comment: Prior to first [employer]ex Infusion and then every 2 weeks.until results within normal limits. Collect weekly if baseline is abnormal.Performed By: #### [id number] #### [facility] (DEFAULT) [address] [address]Gtsggwpx Grans %0.2 %[facility] HospitalComment on above:Order Comment: Prior to first [employer]unex Infusion and then every 2 weeks.until results within normal limits. Collect weekly if baseline is abnormal.Performed By: #### [id number] #### [facility] (DEFAULT) [address] [address]Fqpdjtlo Grans Absolute<0.04Normal<=0.09[facility] HospitalComment on above:Order Comment: Prior to first [employer]unex Infusion and then every 2 weeks.until results within normal limits. Collect weekly if baseline is abnormal.Performed By: #### [id number] #### [facility] (DEFAULT) [address] [address]Eemkqezyrtt (Bld) [#/Vol]2.87 10*3/uLNormal1.16-3.51[facility] HospitalComment on above:Order Comment: Prior to first [employer]unex Infusion and then every 2 weeks.until results within normal limits. Collect weekly if baseline is abnormal.Performed By: #### [id number] #### [facility] (DEFAULT) [address] [address]Dmxwhtxpbyc/100 WBC (Bld)29.1 %[facility] HospitalComment on above:Order Comment: Prior to first [employer]unex Infusion and then every 2 weeks.until results within normal limits. Collect weekly if baseline is abnormal.Performed By: #### [id number] #### [facility] (DEFAULT) [address] [address]WIM (RBC) [Entitic vol]85.2 zYYlgffi36.6-97.7[facility] HospitalComment on above:Order Comment: Prior to first [employer] Infusion and then every 2 weeks.until results within normal limits. Collect weekly if baseline is abnormal.Performed By: #### [id number] #### [facility] (DEFAULT) [address] [address]Qpop Cell Hgb26.3 vtBeahrb84.9-33.9[facility] HospitalComment on above:Order Comment: Prior to first [employer]ex Infusion and then every 2 weeks.until results within normal limits. Collect weekly if baseline is abnormal.Performed By: #### [id number] #### [facility] (DEFAULT) [address] [address]Tdmo Cell Hgb Conc30.8 g/dLLow31.4-35.9[facility] HospitalComment on above:Order Comment: Prior to first [employer]unex Infusion and then every 2 weeks.until results within normal limits. Collect weekly if baseline is abnormal.Performed By: #### [id number] #### [facility] (DEFAULT) [address] [address]Cdzlsbsjs (Bld) [#/Vol]0.37 10*3/uLNormal0.22-0.87[facility] HospitalComment on above:Order Comment: Prior to first [employer]ex Infusion and then every 2 weeks.until results within normal limits. Collect weekly if baseline is abnormal.Performed By: #### [id number] #### [facility] (DEFAULT) [address] [address]Xxprirluv/100 WBC (Bld)3.7 %NormalOhiohealth Grove City Methodist HospitalComment on above:Order Comment: Prior to first [employer]ex Infusion and then every 2 weeks.until results within normal limits. Collect weekly if baseline is abnormal.Performed By: #### [id number] #### [facility] (DEFAULT) [address] [address]Oiogplivq RBC0.0 /100 WBCNormal<=0.2[facility] HospitalComment on above:Order Comment: Prior to first [employer] Infusion and then every 2 weeks.until results within normal limits. Collect weekly if baseline is abnormal.Performed By: #### [id number] #### [facility] (DEFAULT) [address] [address]Ugoyzzls mean volume (Bld) [Entitic vol]9.9 fLNormal8.5-12.2 [facility] HospitalComment on above:Order Comment: Prior to first [facility]ex Infusion and then every 2 weeks.until results within normal li mits. Collect weekly if baseline is abnormal.Performed By: #### [id number] #### [facility] (DEFAULT) [address] [address]Fishxdqhu (Bld) [#/Vol]346 10*3/yLLietam420-149ThwqMercy Health Perrysburg HospitalComment on above:Order Comment: Prior to first [employer]unex Infusion and then every 2 weeks.until results within normal limits. Collect weekly if baseline is abnormal.Performed By: #### [id number] #### [facility] (DEFAULT) [address] [address]CUD (Bld) [#/Vol]3.92 10*6/uLNormal3.91-5.04[facility] HospitalComment on above:Order Comment: Prior to first [employer]unex Infusion and then every 2 weeks.until results within normal limits. Collect weekly if baseline is abnormal.Performed By: #### [id number] #### [facility] (DEFAULT) [address] [address]ABC Qomnibfhruxn26.1 %High10.8-14.9[facility] HospitalComment on above:Order Comment: Prior to first [employer] Infusion and then every 2 weeks.until results within normal limits. Collect weekly if baseline is abnormal.Performed By: #### [id number] #### [facility] (DEFAULT) [address] [address]Gcki + Bands Auto64.3 %NormalOhiohealth Grove City Methodist HospitalComment on above:Order Comment: Prior to first [employer]unex Infusion and then every 2 weeks.until results within normal limits. Collect weekly if baseline is abnormal.Performed By: #### [id number] #### [facility] (DEFAULT) [address] [address]Pusb + Bands,Absolute Auto6.34 K/uLNormal1.64-7.28[facility] HospitalComment on above:Order Comment: Prior to first [employer]unex Infusion and then every 2 weeks.until results within normal limits. Collect weekly if baseline is abnormal.Performed By: #### [id number] #### [facility] (DEFAULT) [address] [address]UUR (Bld) [#/Vol]9.87 10*3/uLNormal3.99-11.19[facility] HospitalComment on above:Order Comment: Prior to first [employer]unex Infusion and then every 2 weeks.until results within normal limits. Collect weekly if baseline is abnormal.Performed By: #### [id number] #### [facility] (DEFAULT) [address] [address]Xjxjuxjlnwibd metabolic 2000 panelon 11-10-3009Jbtz Sensitivity Troponin I9 ng/LNormal<14[facility]owellComsheridan community [facility] on above:Performed By: #### 40109-7 #### [facility] [address] [place], [place] [address]Jihtnmr Auto test strip (Bld) [Mass/Vol]on 04-06-2021 Glucose [Mass/Vol]219 mg/dMVmcw93-05Xqcdc [facility] McdowellComment on above:Performed By: #### 68759-4 #### [facility] [address] [place], [place] [address]Bvoaenv [Mass/Vol]245 mg/pXHkqb19-59Rpaxh [facility] McdowellComment on above:Performed By: #### 59170-6 #### [facility] [address] [place], [place] [address]Maexcjw [Mass/Vol]176 mg/qJEzdr69-57Tqgdq [facility] McdowellComment on above:Performed By: #### 93943-8 #### [facility] [address] [place], [place] [address]Dwprczu [Mass/Vol]217 mg/uFXhws49-58Wxlvc on above:Performed By: #### 2340-8 #### [facility] [address] [place], [place] [address]BpK0l HPLC (Bld) [Mass fraction]on 62-96-7601AcD9j (Bld) [Mass fraction]11.8 %High<=5.6Mount on above: Result Comment: HbA1c values of 5.7-6.4 percent indicate an increased risk for developing diabetes mellitus. HbA1c values greater than or equal to 6.5 percent are diagnostic of diabetes mellitus. For diagnosis of diabetes in individuals without unequivocal hyperglycemia, results should be confirmed by repeat testing.Performed By: #### 80264-9 #### [facility] [address] [place], [place] [address]Yxyr Bld Glu Estim.292 mg/dLNormalMount on above:Performed By: #### 61999-9 #### [facility] [address] [place], [place] [address]Sqaztsul and platelets WO differential panel (Bld)on 88-55-3158Qjsngdzeo (Bld) [#/Vol]0.00 10*3/uLNormal0.00-0.20[facility] McdowellComment on above:Performed By: #### 85574-0 #### [facility] [address] [place], [place] [address]Aciwzkgxe/100 WBC (Bld)0.4 %Normal0.0-2.0[facility] Healthment on above:Performed By: #### 27037-0 #### [facility] [address] [place], [place] [address]Yctpzxexioz (Bld) [#/Vol]0.30 10*3/uLNormal0.00-0.70[facility] on above:Performed By: #### 52193-3 #### [facility] [address] [place], [place] [address]Yxyotzbmdst/100 WBC (Bld)3.5 %Normal0.0-7.0[facility] on above:Performed By: #### 03700-7 #### [facility] [address] [place], [place] [address]Sslqfwxlahs distribution width (RBC) [Ratio]15.3 %High 11.0-14.8[facility] on above:Performed By: #### 33016-3 #### [facility] [address] [place], [place] [address]Lgkihvkrxn (Bld) [Volume fraction]32.4 %Low35.0-45.0[facility] on above:Performed By: #### 99422-7 #### [facility] [address] [place], [place] [address]Aolvjbvpvx (Bld) [Mass/Vol]10.8 g/dLLow12.0-16.0[facility] [address] Anns WestervilleComment on above:Performed By: #### 67442-7 #### [facility] [address] [place], [place] [address]Dcgyhprwnao (Bld) [#/Vol]3.10 10*3/uLNormal1.00-4.80[facility] McdowellComment on above:Performed By: #### 03450-4 #### [facility] [address] [place], [place] [address]Quimzoodyrv/100 WBC (Bld)39.3 %Rpvykr19.0-44.0[facility] McdowellComment on above:Performed By: #### 90760-9 #### [facility] [address] [place], [place] [address]WNN32.2 bmqGkvapg50.0-34.0[facility] Comment on above:Performed By: #### 22770-4 #### [facility] [address] [place], [place] [address]QZQJ (RBC) [Mass/Vol]33.4 g/xLQtaiqc55.0-36.0[facility] McdowellComment on above:Performed By: #### 42517-9 #### [facility] [address] [place], [place] [address]ZKB (RBC) [Entitic vol]81.4 iMSnzdya81.0-97.0[facility] McdowellComment on above:Performed By: #### 61185-0 #### [facility] [address] [place], [place] [address]Vumetglzw (Bld) [#/Vol]0.50 10*3/uLNormal0.00-0.90[facility] [address] [facility]ns WestervilleComment on above:Performed By: #### 84572-1 #### [facility] [address] [place], [place] [address]Aodgrxprc/100 WBC (Bld)6.5 %Normal0.0-12.0[facility] Westcincinnati va medical centerilleComment on above:Performed By: #### 42548-7 #### [facility] [address] [place], [place] [address]Aayoxughwov Absolute4.00 K/mcLNormal1.80-7.70[facility] Westcincinnati va medical centerilleComment on above:Performed By: #### 18438-4 #### [facility] [address] [place], [place] [address]Lxkxqvizsit/100 WBC (Bld)50.3 %Qwwpjk06.0-70.0[facility] Westohio valley surgical hospitalComment on above:Performed By: #### 79855-5 #### [facility] [address] [place], [place] [address]Bblidicx mean volume (Bld) [Entitic vol]6.6 fLNormal 6.2-12.1[facility] Westcincinnati va medical centerilleComment on above:Performed By: #### 60115-7 #### [facility] [address] [place], [place] [address]Wefaraaso (Bld) [#/Vol]356 10*3/lIRmooeo773-503Zmvje [facility] Westohio valley surgical hospitalComment on above:Performed By: #### 94597-7 #### [facility] [address] [place], [place] [address]OEK (Bld) [#/Vol]3.98 10*6/uLNormal3.80-5.10[facility] Westohio valley surgical hospitalComment on above:Performed By: #### 70531-9 #### [facility] [address] [place], [place] [address]AYN (Bld) [#/Vol]7.9 10*3/uLNormal4.6-10.2[facility] Healthment on above:Performed By: #### 80431-8 #### [facility] [address] [place], [place] [address]FE STRESS TEST WITH MYOCARDIAL PERFUSIONon 13-01-7005VX STRESS TEST WITH MYOCARDIAL PERFUSIONThis is a [...] 71 109 78 161 85 1.0 67 55649.0 138 67NormalMount [facility] McdowellTropinin I.cardiac panel High sensitivity methodon 80-13-0702Utoz Sensitivity Troponin I9 ng/LNormal<14Mount on above:Performed By: #### 42196-9 #### [facility] [address] [place], [place] [address]Mrfkf metabolic 2000 panelon 41-99-7952Amaq Sensitivity Troponin I6 ng/LNormal<14Mount on above: Performed By: #### 72843-7 #### [facility] [address] [place], [place] [address]Rlklaaca and platelets WO differential panel (Bld)on 24-41-2904Rlwfxctgd (Bld) [#/Vol]0.00 10*3/uLNormal0.00-0.20[facility] Healthment on above:Performed By: #### 77225-9 #### [facility] [address] [place], [place] [address]Nhyplyhmo/100 WBC (Bld)0.5 %Normal0.0-2.0[facility] McdowellComment on above:Performed By: #### 59399-1 #### [facility] [address] [place], [place] [address]Gggtkwydhoc (Bld) [#/Vol]0.20 10*3/uLNormal0.00-0.70[facility] McdowellComment on above:Performed By: #### 18422-5 #### [facility] [address] [place], [place] [address]Wewvvnzsvkr/100 WBC (Bld)2.1 %Normal0.0-7.0[facility] McdowellComment on above:Performed By: #### 57927-2 #### [facility] [address] [place], [place] [address]Cjbauddnolj distribution width (RBC) [Ratio]15.4 %High 11.0-14.8[facility] McdowellComment on above:Performed By: #### 57254-5 #### [facility] [address] [place], [place] [address]Lihqgftahu (Bld) [Volume fraction]33.6 %Low35.0-45.0[facility] McdowellComment on above:Performed By: #### 79763-0 #### [facility] [address] [place], [place] [address]Pajthbaleu (Bld) [Mass/Vol]11.1 g/dLLow12.0-16.0[facility] McdowellComment on above:Performed By: #### 80290-3 #### [facility] [address] [place], [place] [address]Vpjwvtpnqrm (Bld) [#/Vol]2.80 10*3/uLNormal1.00-4.80[facility] McdowellComment on above:Performed By: #### 15927-1 #### [facility] [address] [place], [place] [address]Dufmbyvqppp/100 WBC (Bld)28.2 %Qptrsn70.0-44.0[facility] McdowellComment on above:Performed By: #### 31055-2 #### [facility] [address] [place], [place] [address]GJJ24.7 gxyYjbosz53.0-34.0[facility] Comment on above:Performed By: #### 80559-9 #### [facility] [address] [place], [place] [address]TYDD (RBC) [Mass/Vol]33.2 g/zWDluugk15.0-36.0[facility] McdowellComment on above:Performed By: #### 23755-0 #### [facility] [address] [place], [place] [address]HIG (RBC) [Entitic vol]83.2 bKUkzsft60.0-97.0[facility] McdowellComment on above:Performed By: #### 14022-7 #### [facility] [address] [place], [place] [address]Perettmhn (Bld) [#/Vol]0.50 10*3/uLNormal0.00-0.90[facility] McdowellComment on above:Performed By: #### 71815-8 #### [facility] [address] [place], [place] [address]Crzsshwxk/100 WBC (Bld)5.2 %Normal0.0-12.0[facility] McdowellComment on above:Performed By: #### 93875-2 #### [facility] [address] [place], [place] [address]Alfthvlhfem Absolute6.30 K/mcLNormal1.80-7.70[facility] McdowellComment on above:Performed By: #### 93147-3 #### [facility] [address] [place], [place] [address]Rkgjdakipho/100 WBC (Bld)64.0 %Gsobzb18.0-70.0[facility] McdowellComment on above:Performed By: #### 93374-7 #### [facility] [address] [place], [place] [address]Gvsgzzor mean volume (Bld) [Entitic vol]6.9 fLNormal 6.2-12.1[facility] McdowellComment on above:Performed By: #### 66955-6 #### [facility] [address] [place], [place] [address]Fabjmdjmd (Bld) [#/Vol]386 10*3/iIUmvuey449-655Fjpdr Mission Hospital McdowellComment on above:Performed By: #### 03128-8 #### [facility] [address] [place], [place] [address]OLG (Bld) [#/Vol]4.03 10*6/uLNormal3.80-5.10[facility] McdowellComment on above:Performed By: #### 47909-8 #### [facility] [address] [place], [place] [address]QOR (Bld) [#/Vol]9.8 10*3/uLNormal4.6-10.2[facility] McdowellComment on above:Performed By: #### 41609-9 #### [facility] [address] [place], [place] [address]Ygnasalykdp peptide B [Mass/Vol]on 85-69-9434ARF08 pcg/mL Normal0-100Mount on above:Result Comment: <100: CHF is unlikely 100-400: Possible left ventricular dysfunction-unlikely acute decompensation >400: Suspicious for decompensated heart failurePerformed By: #### 85403-7 #### [facility] [address] [place], [place] [address]CKPH-OxJ-5 RNA Resp Ql CAL+probeon 87-18-9609UORH-CoV-2 (COVID-19) RNA CAL+probe Ql (Resp)Not detectedNormalNot DetectedMount Mission Hospital McdowellComment on above:Performed By: #### 61726-8 #### [facility] [address] [place], [place] [address]CJBVUPCNQGWQA ECHOCARDIOGRAM (TTE) COMPLETE (CONTRAST/BUBBLE/3D PRN)on 36-74-8813CTVCSVXXWIVGN ECHOCARDIOGRAM (TTE) COMPLETE (CONTRAST/BUBBLE/3D PRN)This is a [...] 12 36 27 1.1 30 10 1.68NormalMount Mission Hospital McdowellTropinin I.cardiac panel High sensitivity methodon 83-28-9625Stdy Sensitivity Troponin I12 ng/LNormal<14Mount on above:Performed By: #### 44649-7 #### [facility] [address] [place], [place] [address]Jrwcahtzbw dipstick W Reflex Culture panel (U)on 04-05-2021 Bilirubin, UrineNegativeNormalNegativeTnunt Mission Hospital McdowellComsheridan community hospital on above:Performed By: #### 88666-1 #### [facility] [address] [place], [place] [address]Xdtyw, UrineNegativeNormalNegativeMount Mission Hospital McdowellComment on above:Performed By: #### 29234-1 #### [facility] [address] [place], [place] [address]Wljmtil (U)ClearNormalClearMount Mission Hospital McdowellComsheridan community hospital on above:Performed By: #### 61923-1 #### [facility] [address] [place], [place] [address]Xoruu (U)StrawAbnormalYellowMount Mission Hospital McdowellComment on above:Performed By: #### 04410-9 #### [facility] [address] [place], [place] [address]Gvdzqpl Ql (U)>=500AbnormalNormalMount Dosher [facility] Hospital Westcincinnati va medical centerilleComment on above:Performed By: #### 94234-0 #### [facility] [address] [place], [place] [address]Xbnvmgd Ql (U)NegativeNormalNegativeMount Dos[facility] Westcincinnati va medical centerilleComment on above:Performed By: #### 28440-3 #### [facility] [address] [place], [place] [address]Wgbvysyqhy, UrineNegativeNormalNegativeMount Dosher [facility] Hospital Westohio valley surgical hospitalComment on above:Performed By: #### 03088-7 #### [facility] [address] [place], [place] [address]Znitfhl, UrineNegativeNormalNegativeMount Dosher [facility] Hospital Westohio valley surgical hospitalComment on above:Performed By: #### 35662-4 #### [facility] [address] [place], [place] [address]rL (U)7.0 [pH]Normal5.0-8.0[facility] Westohio valley surgical hospitalComment on above:Performed By: #### 44411-1 #### [facility] [address] [place], [place] [address]Vtzdcdd, UrineNegativeNormalNegativeMount Dosher [facility] Hospital Westohio valley surgical hospitalComment on above:Performed By: #### 53133-0 #### [facility] [address] [place], [place] [address]Mqldigls [place] Urine1.490Seeihb9.002-1.030[facility] Westohio valley surgical hospitalComment on above:Performed By: #### 72896-9 #### [facility] [address] [place], [place] [address]Siiopkzrfylt, UrineNormalNormalNormalMount Mission Hospital McdowellComment on above:Performed By: #### 34728-4 #### [facility] [address] [place], [place] [address]DA CHEST 1 VIEWon 72-47-8438PS CHEST 1 VIEWEXAMINATION TYPE: XR CHEST 1 [...] By: Self Edit Transcribed Date: 04/05/2021 14:59NormalMount Mission Hospital McdowellXR HAND LEFT 3+ VIEWSon 13-93-2423GV HAND LEFT 3+ VIEWSEXAM TYPE: XR HAND [...] joints of the second, third and fourth fingers.NormalAs[facility](NO DIFF)on 03-15-2021 Erythrocyte distribution width (RBC) [Ratio]15.2 %High11.5-14.5ARegency Hospital Cleveland EastComment on above:Performed By: #### HEMOG, CMPF, LIP2, RTSH, T42 #### Testing performed at [address] [address]Kvpwvacprd (Bld) [Volume fraction]34.3 %Low36.0-48.0[facility] HospitalComment on above:Performed By: #### HEMOG, CMPF, LIP2, RTSH, T42 #### Testing performed at [address] [address]Moerjfkfeh (Bld) [Mass/Vol]11.1 g/dLLow12.0-16.0[facility] HospitalComment on above:Performed By: #### HEMOG, CMPF, LIP2, RTSH, T42 #### Testing performed at [address] [address]GDY (RBC) [Entitic mass]27.0 ajEzcmln03.0-35.0[facility] HospitalComment on above:Performed By: #### HEMOG, CMPF, LIP2, RTSH, T42 #### Testing performed at [address] [address]WJAB (RBC) [Mass/Vol]32.4 g/aCJehnrc53.0-37.0[facility] Township HospitalComment on above:Performed By: #### HEMOG, CMPF, LIP2, RTSH, T42 #### Testing performed at [address] [address]GSH (RBC) [Entitic vol]83.4 yTNqnmpy43.0-100.0[facility] HospitalComment on above:Performed By: #### HEMOG, CMPF, LIP2, RTSH, T42 #### Testing performed at [address] [address]Csmsarow mean volume (Bld) [Entitic vol]7.1 fLLow7.4-11.0[facility] HospitalComment on above:Result Comment: Testing performed at [place] [address]Performed By: #### HEMOG, CMPF, LIP2, RTSH, T42 #### Testing performed at [address] [address]Kriulqtas (Bld) [#/Vol]339 10*3/hLLdapub723.0-400.0[facility] HospitalComment on above:Performed By: #### HEMOG, CMPF, LIP2, RTSH, T42 #### Testing performed at [place] [address]RBC (Bld) [#/Vol]4.11 10*6/uLNormal4.0-5.4ARegency Hospital Cleveland East Comment on above:Performed By: #### HEMOG, CMPF, LIP2, RTSH, T42 #### Testing performed at [address] [address]JXX (Bld) [#/Vol]6.8 10*3/uLNormal3.6-11.0[facility] Comment on above:Performed By: #### HEMOG, CMPF, LIP2, RTSH, T42 #### Testing performed at [address] [address]FOK FASTINGon 2A:G RATIO1.1 RATIOLow1.3-2.2ARegency Hospital Cleveland EastComment on above:Performed By: #### HEMOG, CMPF, LIP2, RTSH, T42 #### Testing performed at [place] [id number] G/dlNormal3.5-5.0[facility] HospitalComment on above:Performed By: #### HEMOG, CMPF, LIP2, RTSH, T42 #### Testing performed at [address] [address]VHH [Catalytic activity/Vol]113 U/SEtkpcn37-181WwfjzOhio Valley Surgical HospitalComment on above:Performed By: #### HEMOG, CMPF, LIP2, RTSH, T42 #### Testing performed at [address] [place] [address]FZA [Catalytic activity/Vol]14 U/LNormal<35[facility] Comment on above:Performed By: #### HEMOG, CMPF, LIP2, RTSH, T42 #### Testing performed at [address] [place] [address]BVV [Catalytic activity/Vol]19 U/ODsiovm79-08KbaqfOhio Valley Surgical HospitalComment on above:Performed By: #### HEMOG, CMPF, LIP2, RTSH, T42 #### Testing performed at [address] [address]Ydluegmsi [Mass/Vol]0.4 mg/dLNormal0.2-1.3ARegency Hospital Cleveland East Comment on above:Performed By: #### HEMOG, CMPF, LIP2, RTSH, T42 #### Testing performed at [address] [address]Scbxslz [Mass/Vol]9.6 mg/dLNormal8.4-10.2ARegency Hospital Cleveland East Comment on above:Performed By: #### HEMOG, CMPF, LIP2, RTSH, T42 #### Testing performed at [address] [place] [address]Gjmeypio [Moles/Vol]105 mmol/WXmxxmu06-279YioraOhio Valley Surgical Hospital Comment on above:Result Comment: Please note: Triglyceride levels of 600mg/dL or higher may positively bias chlorideresults by approximately 2.1 mmolPerformed By: #### HEMOG, CMPF, LIP2, RTSH, T42 #### Testing performed at [address] [place] [address]MS6 [Moles/Vol]24 mmol/GFwuqfa77-35OcaowOhio Valley Surgical HospitalComment on above:Performed By: #### HEMOG, CMPF, LIP2, RTSH, T42 #### Testing performed at [place] [id number] [Mass/Vol]1.20 mg/dLNormal0.7-1.2ARegency Hospital Cleveland EastComment on above:Performed By: #### HEMOG, CMPF, LIP2, RTSH, T42 #### Testing performed at [address] [address]DDH. GFR, Rarhzxnm43 ml/min/1.73sq.mNUnion County General HospitalComment on above:Performed By: #### HEMOG, CMPF, LIP2, RTSH, T42 #### Testing performed at [place] [address]EST. GFR,Non Ianukbtp51 ml/min/1.73sq.[facility] Medical CenterComment on above:Performed By: #### HEMOG, CMPF, LIP2, RTSH, T42 #### Testing performed at [address] [address]CCV InformationAverage GFR for 50-59 years old = 93.[facility] Medical CenterComment on above:Result Comment: Chronic Kidney disease, GFR = <60. Kidney failure, GFR = <15. The GFR estimate is not adjusted for extreme body surface area or acute process, nor has it been validated for women or ethnic groups other than and . Testing performed at [place], [place] [address]Rggogueys By: #### HEMOG, CMPF, LIP2, RTSH, T42 #### Testing performed at [address] [address]Exahlhm [Mass/Vol]222 mg/oJGqcl80-625XqybjOhio Valley Surgical Hospital Comment on above:Result Comment: NORMAL <100 mg/dL PREDIABETES 101-126 mg/dL DIABETES 126 mg/dL or higherPerformed By: #### HEMOG, CMPF, LIP2, RTSH, T42 #### Testing performed at [address] [address]Fyiiqtlfa [Moles/Vol]4.5 mmol/LNormal3.5-5.1ARegency Hospital Cleveland EastComment on above:Performed By: #### HEMOG, CMPF, LIP2, RTSH, T42 #### Testing performed at [address] [address]Wnyuplu [Mass/Vol]7.3 g/dLNormal6.3-8.2ARegency Hospital [facility] East Comment on above:Performed By: #### HEMOG, CMPF, LIP2, RTSH, T42 #### Testing performed at [address] [address]Gvryfr [Moles/Vol]139 mmol/PEvnnco950-331NwfwoOhio Valley Surgical Hospital Comment on above:Performed By: #### HEMOG, CMPF, LIP2, RTSH, T42 #### Testing performed at [address] [address]Yqiy nitrogen [Mass/Vol]26 mg/dLWyoming General Hospital7-20[facility] Comment on above:Performed By: #### HEMOG, CMPF, LIP2, RTSH, T42 #### Testing performed at [address] [address]LDDK T4on 72-33-4064Eoxi T4 [Mass/Vol]1.07 ng/dLNormal0.78-2.19 [facility] HospitalComment on above:Result Comment: Testing performed at [place], [place] [address]Dxkcvagfh By: #### HEMOG, CMPF, LIP2, RTSH, T42 #### Testing performed at [address] [address]ONJODFPMKV A1Con 06-24-3571Pkiezrh [Mass/Vol]289 mg/dLNormal [facility] Surgical HospitalHbA1c (Bld) [Mass fraction]11.7 %High0-6ARegency Hospital Cleveland EastComment on above:Result Comment: NORMAL <5.7% PREDIABETES 5.7-6.4% DIABETES 6.5% OR HIGHERLIPID PROFILEon 72-47-7036Ikunqzcajwz [Mass/Vol]226 mg/dL Esol466-943ZmcpeOhio Valley Surgical HospitalComment on above:Performed By: #### HEMOG, CMPF, LIP2, RTSH, T42 #### Testing performed at [address] [address]Krsozbivqkv in HDL [Mass/Vol]48 mg/sZTlhtlh64-54CszxeOhio Valley Surgical HospitalComment on above:Performed By: #### HEMOG, CMPF, LIP2, RTSH, T42 #### Testing performed at [address] [address]Qwglwweuyvp in LDL [Mass/Vol]143 mg/dLNormalARegency Hospital Cleveland EastComment on above:Performed By: #### HEMOG, CMPF, LIP2, RTSH, T42 #### Testing performed at [address] [address]Aavydgesbib in VLDL [Mass/Vol]35 mg/dLHigh5.0-25[facility] HospitalComment on above:Performed By: #### HEMOG, CMPF, LIP2, RTSH, T42 #### Testing performed at [address] [address]Mgoavoypygc.total/Cholesterol in HDL [Mass ratio]4.71 {ratio} NormalOhio Valley Surgical HospitalComment on above:Result Comment: RISK TOTAL/HDL RATIO MEN WOMEN 1/2 AVERAGE 3.43 3.27 AVERAGE 4.97 4.44 2X AVERAGE 9.55 7.05 3X AVERAGE 23.99 11.04 Testing performed at [place], [place] [address]Twlpobhcp By: #### HEMOG, CMPF, LIP2, RTSH, T42 #### Testing performed at [address] [address]Wsgqwkjqqqqv [Mass/Vol]174 mg/dLHigh0-150[facility] Comment on above:Performed By: #### HEMOG, CMPF, LIP2, RTSH, T42 #### Testing performed at [address] [address]JPNJ/CREAT RATIO,URINEon 69-40-7956TPZC/CREAT RATIO,SNCZF426.2 mg MALB/g CREATHigh1.3-30.0[facility] HospitalComment on above:Result Comment: Testing performed at [place] [address]Performed By: #### MCRAT #### Testing performed at [place] [address]MICROALBUMIN,RANDOM USHHW254.1 mg/LHigh0-16.7ARegency Hospital Cleveland EastComment on above:Performed By: #### MCRAT #### Testing performed at [place] [address]33URINE CREATININE VLEALS958.5 MG/DLNormalARegency Hospital Cleveland East Comment on above:Result Comment: NO NORMAL VALUES ESTABLISHED FOR RANDOM SPECIMENSPerformed By: #### MCRAT #### Testing performed at [address] [address]RFF,REFLEX FREE T4on 60-99-2197MAR,REFLEX FREE T47.180 uIU/ML High0.46-4.68[facility] HospitalComment on above:Result Comment: Testing performed at [place] [address]Performed By: #### HEMOG, CMPF, LIP2, RTSH, T42 #### Testing performed at [place] [address]BUN CREAon 43-25-1071Paaflwghaf [Mass/Vol]1.16 mg/dLNormal 0.50-1.20[facility] HospitalComment on above:Order Comment: Prior to first [facility] and every 2 weeks if baseline CR is within normal limits.Performed By: #### BCR #### [facility] (DEFAULT) [address] [address]VSZ GFR, Dagyfbvu09 mL/min/1.73sqMLow>=60OhMercy Health Perrysburg HospitalComment on above:Order Comment: Prior to first [facility] and every 2 weeks if baseline CR is within normal limits. Performed By: #### BCR #### [facility] (DEFAULT) [address] [address]KFV GFR,Non Rbbmoncc92 mL/min/1.73sqMLow>=60[facility] HospitalComment on above:Order Comment: Prior to first [facility] and every 2 weeks if baseline CR is within normal limits. Performed By: #### BCR #### [facility] (DEFAULT) [address] [address]Xlpl nitrogen [Mass/Vol]19 mg/dLNormal7-25[facility] HospitalComment on above:Order Comment: Prior to first [facility] and every 2 weeks if baseline CR is within normal limits. Performed By: #### BCR #### [facility] (DEFAULT) [address] [address]Grwi nitrogen/Creatinine [Mass ratio]16 mg/mgMarion HospitalComment on above:Order Comment: Prior to first [facility] and every 2 weeks if baseline CR is within normal limits. Performed By: #### BCR #### [facility] (DEFAULT) [address] [address]QYH AND ELECTRONIC DIFFon 76-43-3837Solanjrwr (Bld) [#/Vol] 10*3/uLNormal0.00-0.15[facility] HospitalComment on above:Order Comment: Prior to first [facility] and every 2 weeks if baseline CR is within normal limits.Performed By: #### BCR #### [facility] (DEFAULT) [address] [address]Aetwwplkm/100 WBC (Bld)0.2 %NormalOhiohealth Grove City Methodist HospitalComment on above:Order Comment: Prior to first [facility] and every 2 weeks if baseline CR is within normal limits.Performed By: #### BCR #### [facility] (DEFAULT) [address] [address]YDLL STATUSElectronic DifferentialNoAvita Health System Ontario HospitalComment on above:Order Comment: Prior to first [facility] and every 2 weeks if baseline CR is within normal limits.Performed By: #### BCR #### [facility] (DEFAULT) [address] [place] [address]Nloynillndk (Bld) [#/Vol]0.21 10*3/uLNormal0.00-0.42[facility] HospitalComment on above:Order Comment: Prior to first [facility] and every 2 weeks if baseline CR is within normal limits. Performed By: #### BCR #### [facility] (DEFAULT) [address] [place] [address]Nsknsbnqfkh/100 WBC (Bld)2.3 %Marion HospitalComment on above:Order Comment: Prior to first [facility] and every 2 weeks if baseline CR is within normal limits.Performed By: #### BCR #### [facility] (DEFAULT) [address] [address]Orupqgubss (Bld) [Volume fraction]32.6 %Low34.9-44.3[facility] HospitalComment on above:Order Comment: Prior to first [facility] and every 2 weeks if baseline CR is within normal limits. Performed By: #### BCR #### [facility] (DEFAULT) [address] [address]Wxfmbpiuqt (Bld) [Mass/Vol]10.2 g/dLLow11.4-15.2[facility] HospitalComment on above:Order Comment: Prior to first [facility] and every 2 weeks if baseline CR is within normal limits. Performed By: #### BCR #### [facility] (DEFAULT) [address] [place] [address]Qlokqcry Grans %0.2 %Marion HospitalComment on above:Order Comment: Prior to first [facility] and every 2 weeks if baseline CR is within normal limits.Performed By: #### BCR #### [facility] (DEFAULT) [address] [address]Rocnifds Grans Absolute<0.04Normal<=0.09[facility] HospitalComment on above:Order Comment: Prior to first [facility] and every 2 weeks if baseline CR is within normal limits.Performed By: #### BCR #### [facility] (DEFAULT) [address] [address]Wwgecofsksi (Bld) [#/Vol]2.26 10*3/uLNormal1.16-3.51[facility] HospitalComment on above:Order Comment: Prior to first [facility] and every 2 weeks if baseline CR is within normal limits. Performed By: #### BCR #### [facility] (DEFAULT) [address] [address]Wxftgkonudi/100 WBC (Bld)25.3 %NormalOhiohealth Grove City Methodist HospitalComment on above:Order Comment: Prior to first [facility] and every 2 weeks if baseline CR is within normal limits.Performed By: #### BCR #### [facility] (DEFAULT) [address] [address]TSX (RBC) [Entitic vol]86.2 qVXdfrbz04.6-97.7[facility] HospitalComment on above:Order Comment: Prior to first [facility] and every 2 weeks if baseline CR is within normal limits. Performed By: #### BCR #### [facility] (DEFAULT) [address] [address]Rsla Cell Hgb27.0 zxYjibaq94.9-33.9[facility] HospitalComment on above:Order Comment: Prior to first [facility] and every 2 weeks if baseline CR is within normal limits.Performed By: #### BCR #### [facility] (DEFAULT) [address] [address]Zwfc Cell Hgb Conc31.3 g/dLLow31.4-35.9[facility] HospitalComment on above:Order Comment: Prior to first [facility] and every 2 weeks if baseline CR is within normal limits.Performed By: #### BCR #### [facility] (DEFAULT) [address] [place] [address]Gqlyokcio (Bld) [#/Vol]0.44 10*3/uLNormal0.22-0.87[facility] HospitalComment on above:Order Comment: Prior to first [facility] and every 2 weeks if baseline CR is within normal limits. Performed By: #### BCR #### [facility] (DEFAULT) [address] [place] [address]Eeaijgett/100 WBC (Bld)4.9 %NormalOhiohealth Grove City Methodist HospitalComment on above:Order Comment: Prior to first [facility] and every 2 weeks if baseline CR is within normal limits.Performed By: #### BCR #### [facility] (DEFAULT) [address] [place] [address]Donzvxiim RBC0.0 /100 WBCNormal<=0.2[facility] HospitalComment on above:Order Comment: Prior to first [facility] and every 2 weeks if baseline CR is within normal limits.Performed By: #### BCR #### [facility] (DEFAULT) [address] [place] [address]Yhysqqzf mean volume (Bld) [Entitic vol]9.7 fLNormal8.5-12.2 [facility] HospitalComment on above:Order Comment: Prior to first [facility] and every 2 weeks if baseline CR is within normal angel its.Performed By: #### BCR #### [facility] (DEFAULT) [address] [place] [address]Qxenifbxw (Bld) [#/Vol]350 10*3/vHFnhwrp268-483NjnfOhiohealth Grove City Methodist HospitalComment on above:Order Comment: Prior to first [facility] and every 2 weeks if baseline CR is within normal limits. Performed By: #### BCR #### [facility] (DEFAULT) [address] [place] [address]RWF (Bld) [#/Vol]3.78 10*6/uLLow3.91-5.04[facility] HospitalComment on above:Order Comment: Prior to first [facility] and every 2 weeks if baseline CR is within normal limits.Performed By: #### BCR #### [facility] (DEFAULT) [address] [address]KEJ Kumxyasmjtjk09.6 %Euoker40.8-14.9[facility] [facility] HospitalComment on above:Order Comment: Prior to first [employer] [facility] and every 2 weeks if baseline CR is within normal limits.Performed By: #### BCR #### [facility] (DEFAULT) [address] [address]Reby + Bands Auto67.1 %NormalOhiohealth Grove City Methodist HospitalComment on above:Order Comment: Prior to first [employer] Infusion and every 2 weeks if baseline CR is within normal limits.Performed By: #### BCR #### [facility] (DEFAULT) [address] [address]Bmmi + Bands,Absolute Auto5.99 K/uLNormal1.64-7.28[facility] HospitalComment on above:Order Comment: Prior to first [facility] Infusion and every 2 weeks if baseline CR is within normal limits. Performed By: #### BCR #### [facility] (DEFAULT) [address] [address]IQE (Bld) [#/Vol]8.94 10*3/uLNormal3.99-11.19[facility] HospitalComment on above:Order Comment: Prior to first [employer] Infusion and every 2 weeks if baseline CR is within normal limits. Performed By: #### BCR #### [facility] (DEFAULT) [address] [address]BDR CREAon 23-12-9408Yjkilukpyc [Mass/Vol]1.19 mg/dLNormal 0.50-1.20[facility] HospitalComment on above:Order Comment: Prior to first [facility]ex Infusion and every 2 weeks if baseline CR is within normal limits.Performed By: #### BCR #### [facility] (DEFAULT) [address] [place] [address]NMY GFR, Xelyjxim62 mL/min/1.73sqMLow>=60[facility] HospitalComment on above:Order Comment: Prior to first [employer]ex Infusion and every 2 weeks if baseline CR is within normal limits. Performed By: #### BCR #### [facility] (DEFAULT) [address] [place] [address]VKM GFR,Non Qhavwzpp26 mL/min/1.73sqMLow>=60[facility] HospitalComment on above:Order Comment: Prior to first [facility]ex Infusion and every 2 weeks if baseline CR is within normal limits. Performed By: #### BCR #### [facility] (DEFAULT) [address] [address]Xlsu nitrogen [Mass/Vol]28 mg/dLHigh7-25[facility] HospitalComment on above:Order Comment: Prior to first [facility]ex Infusion and every 2 weeks if baseline CR is within normal limits.Performed By: #### BCR #### [facility] (DEFAULT) [address] [address]Ybaj nitrogen/Creatinine [Mass ratio]24 mg/mgNormalOVeterans Health AdministrationComment on above:Order Comment: Prior to first [employer]ex Infusion and every 2 weeks if baseline CR is within normal limits. Performed By: #### BCR #### [facility] (DEFAULT) [address] [place] [address]NHZ AND ELECTRONIC DIFFon 21-19-6919Gxnjjspuu (Bld) [#/Vol] 0.05 10*3/uLNormal0.00-0.15[facility] HospitalComment on above:Order Comment: Prior to first Gamunex Infusion and every 2 weeks if baseline CR is within normal limits.Performed By: #### BCR #### [facility] (DEFAULT) [address] [place] [address]Qiwmryzyd/100 WBC (Bld)0.6 %[facility] HospitalComment on above:Order Comment: Prior to first Gamunex Infusion and every 2 weeks if baseline CR is within normal limits.Performed By: #### BCR #### [facility] (DEFAULT) [address] [address]UKIR STATUSElectronic DifferentialNormalOhio Ashtabula General HospitalComment on above:Order Comment: Prior to first Gamunex Infusion and every 2 weeks if baseline CR is within normal limits.Performed By: #### BCR #### [facility] (DEFAULT) [address] [address]Veqxifdmzyj (Bld) [#/Vol]0.16 10*3/uLNormal0.00-0.42[facility] HospitalComment on above:Order Comment: Prior to first [employer]unex Infusion and every 2 weeks if baseline CR is within normal limits. Performed By: #### BCR #### [facility] (DEFAULT) [address] [address]Aporfwvxqcq/100 WBC (Bld)1.8 %[facility] HospitalComment on above:Order Comment: Prior to first Gamunex Infusion and every 2 weeks if baseline CR is within normal limits.Performed By: #### BCR #### [facility] (DEFAULT) [address] [address]Ndfbmfolsl (Bld) [Volume fraction]34.7 %Low34.9-44.3[facility] HospitalComment on above:Order Comment: Prior to first Gamunex Infusion and every 2 weeks if baseline CR is within normal limits. Performed By: #### BCR #### [facility] (DEFAULT) [address] [address]Lnugyuagok (Bld) [Mass/Vol]11.0 g/dLLow11.4-15.2[facility] HospitalComment on above:Order Comment: Prior to first Gamunex Infusion and every 2 weeks if baseline CR is within normal limits. Performed By: #### BCR #### [facility] (DEFAULT) [address] [address]Eiahegbz Grans %0.1 %NormalOhiohealth Grove City Methodist HospitalComment on above:Order Comment: Prior to first [employer]unex Infusion and every 2 weeks if baseline CR is within normal limits.Performed By: #### BCR #### [facility] (DEFAULT) [address] [address]Pvzczack Grans Absolute<0.04Normal<=0.09[facility] HospitalComment on above:Order Comment: Prior to first Gamunex Infusion and every 2 weeks if baseline CR is within normal limits.Performed By: #### BCR #### [facility] (DEFAULT) [address] [address]Jcsozpsuzih (Bld) [#/Vol]2.61 10*3/uLNormal1.16-3.51[facility] HospitalComment on above:Order Comment: Prior to first Gamunex Infusion and every 2 weeks if baseline CR is within normal limits. Performed By: #### BCR #### [facility] (DEFAULT) [address] [address]Muhlayrsudt/100 WBC (Bld)29.4 %[facility] HospitalComment on above:Order Comment: Prior to first Gamunex Infusion and every 2 weeks if baseline CR is within normal limits.Performed By: #### BCR #### [facility] (DEFAULT) [address] [address]HTJ (RBC) [Entitic vol]85.5 nPCnhksy15.6-97.7[facility] HospitalComment on above:Order Comment: Prior to first Gamunex Infusion and every 2 weeks if baseline CR is within normal limits. Performed By: #### BCR #### [facility] (DEFAULT) [address] [address]Aatw Cell Hgb27.1 nzOcbbpl85.9-33.9[facility] HospitalComment on above:Order Comment: Prior to first Gamunex Infusion and every 2 weeks if baseline CR is within normal limits.Performed By: #### BCR #### [facility] (DEFAULT) [address] [address]Fpoe Cell Hgb Conc31.7 g/wUIaqhug72.4-35.9[facility] HospitalComment on above:Order Comment: Prior to first [employer]unex Infusion and every 2 weeks if baseline CR is within normal limits. Performed By: #### BCR #### [facility] (DEFAULT) [address] [address]Viwckbaae (Bld) [#/Vol]0.39 10*3/uLNormal0.22-0.87[facility] HospitalComment on above:Order Comment: Prior to first Gamunex Infusion and every 2 weeks if baseline CR is within normal limits. Performed By: #### BCR #### [facility] (DEFAULT) [address] [address]Ynzyuejnq/100 WBC (Bld)4.4 %NormalOhiohealth Grove City Methodist HospitalComment on above:Order Comment: Prior to first Gamunex Infusion and every 2 weeks if baseline CR is within normal limits.Performed By: #### BCR #### [facility] (DEFAULT) [address] [address]Bjpuqhkxi RBC0.0 /100 WBCNormal<=0.2[facility] HospitalComment on above:Order Comment: Prior to first Gamunex Infusion and every 2 weeks if baseline CR is within normal limits.Performed By: #### BCR #### [facility] (DEFAULT) [address] [address]Silxgeme mean volume (Bld) [Entitic vol]9.7 fLNormal8.5-12.2 [facility] HospitalComment on above:Order Comment: Prior to first Gamunex Infusion and every 2 weeks if baseline CR is within normal angel its.Performed By: #### BCR #### [facility] (DEFAULT) [address] [place] [address]Sztkgfxpo (Bld) [#/Vol]383 10*3/qKSvmxlp769-734QzplOhiohealth Grove City Methodist HospitalComment on above:Order Comment: Prior to first Gamunex Infusion and every 2 weeks if baseline CR is within normal limits. Performed By: #### BCR #### [facility] (DEFAULT) [address] [place] [address]JBL (Bld) [#/Vol]4.06 10*6/uLNormal3.91-5.04[facility] HospitalComment on above:Order Comment: Prior to first Gamunex Infusion and every 2 weeks if baseline CR is within normal limits. Performed By: #### BCR #### [facility] (DEFAULT) [address] [place] [address]LFK Udtxlkabgnbr31.5 %Qvxiji76.8-14.9[facility] HospitalComment on above:Order Comment: Prior to first Gamunex Infusion and every 2 weeks if baseline CR is within normal limits.Performed By: #### BCR #### [facility] (DEFAULT) [address] [place] [address]Bbel + Bands Auto63.7 %NormalOhiohealth Grove City Methodist HospitalComment on above:Order Comment: Prior to first Gamunex Infusion and every 2 weeks if baseline CR is within normal limits.Performed By: #### BCR #### [facility] (DEFAULT) [address] [place] [address]Pycw + Bands,Absolute Auto5.66 K/uLNormal1.64-7.28[facility] HospitalComment on above:Order Comment: Prior to first Gamunex Infusion and every 2 weeks if baseline CR is within normal limits. Performed By: #### BCR #### [facility] (DEFAULT) [address] [place] [address]BFE (Bld) [#/Vol]8.88 10*3/uLNormal3.99-11.19[facility] HospitalComment on above:Order Comment: Prior to first Gamunex Infusion and every 2 weeks if baseline CR is within normal limits. Performed By: #### BCR #### [facility] (DEFAULT) [address] [place] [address]UUE/HRT MACULA OUon 87-55-6208JXS/HRT MACULA OURight Eye Quality was good. Findings include subretinal fluid. Interval change is better. Recommendation for management is to continue treatment. Left Eye Quality was good. Findings include subretinal fluid. Interval change is better. Recommendation for management is to continue treatment.NormalOhiohealth Grove City Methodist HospitalBUN CREAon 80-51-6978Xkmxbqfcrp [Mass/Vol]1.20 mg/dLNormal0.50-1.20[facility] HospitalComment on above: Order Comment: Prior to first Gamunex Infusion and every 2 weeks if baseline CR is within normal limits.Performed By: #### BCR #### [facility] (DEFAULT) [address] [place] [address]DHR GFR, Qkvyhpbs52 mL/min/1.73sqMLow>=60[facility] HospitalComment on above:Order Comment: Prior to first Gamunex Infusion and every 2 weeks if baseline CR is within normal limits. Performed By: #### BCR #### [facility] (DEFAULT) [address] [place] [address]LNG GFR,Non Fyaohbme87 mL/min/1.73sqMLow>=60[facility] HospitalComment on above:Order Comment: Prior to first Gamunex Infusion and every 2 weeks if baseline CR is within normal limits. Performed By: #### BCR #### [facility] (DEFAULT) [address] [place] [address]Xaic nitrogen [Mass/Vol]21 mg/dLNormal7-[facility] HospitalComment on above:Order Comment: Prior to first Gamunex Infusion and every 2 weeks if baseline CR is within normal limits. Performed By: #### BCR #### [facility] (DEFAULT) [address] [place] [address]Sbbs nitrogen/Creatinine [Mass ratio]18 mg/mgMarion HospitalComment on above:Order Comment: Prior to first Gamunex Infusion and every 2 weeks if baseline CR is within normal limits. Performed By: #### BCR #### [facility] (DEFAULT) [address] [address]DEB AND ELECTRONIC DIFFon 30-27-0457Uhwngmews (Bld) [#/Vol] 0.05 10*3/uLNormal0.00-0.15[facility] HospitalComment on above:Order Comment: Prior to first Gamunex Infusion and then every 2 weeks.until results within normal limits. Collect weekly if baseline is abnormal.Performed By: #### [id number] #### [facility] (DEFAULT) [address] [address]Ndttiyldp/100 WBC (Bld)0.5 %[facility] HospitalComment on above:Order Comment: Prior to first Gamunex Infusion and then every 2 weeks.until results within normal limits. Collect weekly if baseline is abnormal.Performed By: #### [id number] #### [facility] (DEFAULT) [address] [address]GJUM STATUSElectronic DifferentialMarion HospitalComment on above:Order Comment: Prior to first Gamunex Infusion and then every 2 weeks.until results within normal limits. Collect weekly if baseline is abnormal.Performed By: #### [id number] #### [facility] (DEFAULT) [address] [address]Wdzpvonmftf (Bld) [#/Vol]0.31 10*3/uLNormal0.00-0.42[facility] HospitalComment on above:Order Comment: Prior to first Gamunex Infusion and then every 2 weeks.until results within normal limits. Collect weekly if baseline is abnormal.Performed By: #### [id number] #### [facility] (DEFAULT) [address] [address]Xuuowyliebf/100 WBC (Bld)3.3 %[facility] HospitalComment on above:Order Comment: Prior to first Gamunex Infusion and then every 2 weeks.until results within normal limits. Collect weekly if baseline is abnormal.Performed By: #### [id number] #### [facility] (DEFAULT) [address] [address]Bmglckhuiq (Bld) [Volume fraction]33.5 %Low34.9-44.3[facility] HospitalComment on above:Order Comment: Prior to first Gamunex Infusion and then every 2 weeks.until results within normal limits. Collect weekly if baseline is abnormal.Performed By: #### [id number] #### [facility] (DEFAULT) [address] [address]Irrndqwphx (Bld) [Mass/Vol]10.5 g/dLLow11.4-15.2[facility] HospitalComment on above:Order Comment: Prior to first Gamunex Infusion and then every 2 weeks.until results within normal limits. Collect weekly if baseline is abnormal.Performed By: #### [id number] #### [facility] (DEFAULT) [address] [address]Zmjgqqeg Grans %0.2 %[facility] HospitalComment on above:Order Comment: Prior to first Gamunex Infusion and then every 2 weeks.until results within normal limits. Collect weekly if baseline is abnormal.Performed By: #### [id number] #### [facility] (DEFAULT) [address] [address]Qpkabgne Grans Absolute<0.04Normal<=0.09[facility] HospitalComment on above:Order Comment: Prior to first Gamunex Infusion and then every 2 weeks.until results within normal limits. Collect weekly if baseline is abnormal.Performed By: #### [id number] #### [facility] (DEFAULT) [address] [address]Kfhlzgrikfn (Bld) [#/Vol]2.84 10*3/uLNormal1.16-3.51[facility] HospitalComment on above:Order Comment: Prior to first Gamunex Infusion and then every 2 weeks.until results within normal limits. Collect weekly if baseline is abnormal.Performed By: #### [id number] #### [facility] (DEFAULT) [address] [address]Oypjnlmuwgl/100 WBC (Bld)30.6 %NormalOhiohealth Grove City Methodist HospitalComment on above:Order Comment: Prior to first Gamunex Infusion and then every 2 weeks.until results within normal limits. Collect weekly if baseline is abnormal.Performed By: #### [id number] #### [facility] (DEFAULT) [address] [address]HFA (RBC) [Entitic vol]85.7 rYAntlih24.6-97.7[facility] HospitalComment on above:Order Comment: Prior to first Gamunex Infusion and then every 2 weeks.until results within normal limits. Collect weekly if baseline is abnormal.Performed By: #### [id number] #### [facility] (DEFAULT) [address] [address]Ledw Cell Hgb26.9 riXzppfl52.9-33.9[facility] HospitalComment on above:Order Comment: Prior to first Gamunex Infusion and then every 2 weeks.until results within normal limits. Collect weekly if baseline is abnormal.Performed By: #### [id number] #### [facility] (DEFAULT) [address] [address]Judc Cell Hgb Conc31.3 g/dLLow31.4-35.9[facility] HospitalComment on above:Order Comment: Prior to first Gamunex Infusion and then every 2 weeks.until results within normal limits. Collect weekly if baseline is abnormal.Performed By: #### [id number] #### [facility] (DEFAULT) [address] [address]Ojudenoko (Bld) [#/Vol]0.42 10*3/uLNormal0.22-0.87[facility] HospitalComment on above:Order Comment: Prior to first Gamunex Infusion and then every 2 weeks.until results within normal limits. Collect weekly if baseline is abnormal.Performed By: #### [id number] #### [facility] (DEFAULT) [address] [address]Anzgbjbzo/100 WBC (Bld)4.5 %NormalOhiohealth Grove City Methodist HospitalComment on above:Order Comment: Prior to first Gamunex Infusion and then every 2 weeks.until results within normal limits. Collect weekly if baseline is abnormal.Performed By: #### [id number] #### [facility] (DEFAULT) [address] [address]Xpatnoxsk RBC0.0 /100 WBCNormal<=0.2[facility] HospitalComment on above:Order Comment: Prior to first Gamunex Infusion and then every 2 weeks.until results within normal limits. Collect weekly if baseline is abnormal.Performed By: #### [id number] #### [facility] (DEFAULT) [address] [address]Xoggxwta mean volume (Bld) [Entitic vol]9.3 fLNormal8.5-12.2 [facility] HospitalComment on above:Order Comment: Prior to first Gamunex Infusion and then every 2 weeks.until results within normal li mits. Collect weekly if baseline is abnormal.Performed By: #### [id number] #### [facility] (DEFAULT) [address] [address]Agukorgdk (Bld) [#/Vol]398 10*3/hOSinn733-192PkftOhiohealth Grove City Methodist HospitalComment on above:Order Comment: Prior to first Gamunex Infusion and then every 2 weeks.until results within normal limits. Collect weekly if baseline is abnormal.Performed By: #### [id number] #### [facility] (DEFAULT) [address] [address]LMH (Bld) [#/Vol]3.91 10*6/uLNormal3.91-5.04[facility] HospitalComment on above:Order Comment: Prior to first Gamunex Infusion and then every 2 weeks.until results within normal limits. Collect weekly if baseline is abnormal.Performed By: #### [id number] #### [facility] (DEFAULT) [address] [address]PNN Bqfbmjpfqyws31.5 %Kojpqw88.8-14.9[facility] HospitalComment on above:Order Comment: Prior to first Gamunex Infusion and then every 2 weeks.until results within normal limits. Collect weekly if baseline is abnormal.Performed By: #### [id number] #### [facility] (DEFAULT) [address] [address]Ycpr + Bands Auto60.9 %NormalOhiohealth Grove City Methodist HospitalComment on above:Order Comment: Prior to first Gamunex Infusion and then every 2 weeks.until results within normal limits. Collect weekly if baseline is abnormal.Performed By: #### [id number] #### [facility] (DEFAULT) [address] [address]Taew + Bands,Absolute Auto5.63 K/uLNormal1.64-7.28[facility] HospitalComment on above:Order Comment: Prior to first Gamunex Infusion and then every 2 weeks.until results within normal limits. Collect weekly if baseline is abnormal.Performed By: #### [id number] #### [facility] (DEFAULT) [address] [address]VFP (Bld) [#/Vol]9.27 10*3/uLNormal3.99-11.19[facility] HospitalComment on above:Order Comment: Prior to first Gamunex Infusion and then every 2 weeks.until results within normal limits. Collect weekly if baseline is abnormal.Performed By: #### [id number] #### [facility] (DEFAULT) [address] [address]K HYDROXYBUTYRATEon 01-14-2021 HYDROXYBUTYRATE0.08 MMOL/L Normal0.02-0.27[facility] HospitalComment on above:Performed By: #### CMPF, BHB, ACBC #### Testing performed at [address] [address]PGYmu [id number] BAS0.0 10*3/uLNormal0.0-0.2AEast Orange VA Medical CenterComment on above:Performed By: #### CMPF, BHB, ACBC #### Testing performed at [address] [address]UYJONJZL EOS0.20 10*3/uLNormal0.0-0.7AEast [facility] Comment on above:Performed By: #### CMPF, BHB, ACBC #### Testing performed at [address] [address]OXMJPWNX NEUTROPHIL COUNT4.9 10*3/uLNormal1.4-6.5AEast Orange VA Medical CenterComment on above:Performed By: #### JONNYF BHB, ACBC #### Testing performed at [address] [address]Busxwhmqp/100 WBC (Bld)0.4 %Normal0.0-2.0[facility] Comment on above:Performed By: #### CMPF, BHB, ACBC #### Testing performed at [address] [address]UOJCNMPYX DIFFNormalAEast Orange VA Medical CenterComment on above: Performed By: #### CMPF, BHB, ACBC #### Testing performed at [address] [address]Vytbdksacrw/100 WBC (Bld)2.3 %Normal0.0-11.0[facility] HospitalComment on above:Performed By: #### CMPF, BHB, ACBC #### Testing performed at [address] [address]Udstabuxrnm (Bld) [#/Vol]2.10 10*3/uLNormal1.2-3.4AEast Orange VA Medical CenterComment on above:Performed By: #### CMPF, BHB, ACBC #### Testing performed at [address] [address]Hyobwhtcutz/100 WBC (Bld)27.2 %Mnkcyx93.0-55.0[facility] HospitalComment on above:Performed By: #### SANGEETA HUGGINS ACBC #### Testing performed at [address] [address]Eoculqlvm (Bld) [#/Vol]0.6 10*3/uLNormal0.0-0.7AEast Orange VA Medical CenterComment on above:Performed By: #### SANGEETA HUGGINS ACBC #### Testing performed at [address] [address]Gwjzztqmh/100 WBC (Bld)7.5 %Normal0.0-10.0[facility] HospitalComment on above:Performed By: #### SANGEETA HUGGINS ACBC #### Testing performed at [address] [address]Zqauyhicrvx/100 WBC (Bld)62.6 %Repcgg25.0-75.0[facility] HospitalComment on above:Performed By: #### SANGEETA HUGGINS ACBC #### Testing performed at [address] [address]Zaqzhbyoxam distribution width (RBC) [Ratio]15.6 %High11.5-14.5 [facility] on above:Performed By: #### SANGEETA HUGGINS ACBC #### Testing performed at [address] [address]Nyuljcbwjd (Bld) [Volume fraction]32.7 %Low36.0-48.0[facility] HospitalComment on above:Performed By: #### SANGEETA HUGGINS, ACBC #### Testing performed at [address] [address]Bvyytgqivm (Bld) [Mass/Vol]10.8 g/dLLow12.0-16.0[facility] HospitalComsheridan community hospital on above:Performed By: #### BHAVNA BHB, ACBC #### Testing performed at [address] [address]BZI (RBC) [Entitic mass]27.3 xhFmjrtl84.0-35.0[facility] HospitalComment on above:Performed By: #### SANGEETA HUGGINS ACBC #### Testing performed at [address] [address]ICLB (RBC) [Mass/Vol]33.1 g/pKDiewhw99.0-37.0[facility] HospitalComment on above:Performed By: #### SANGEETA HUGGINS ACBC #### Testing performed at [address] [address]UMF (RBC) [Entitic vol]82.5 uIQskvmd22.0-100.0[facility] HospitalComment on above:Performed By: #### SANGEETA HUGGINS ACBC #### Testing performed at [address] [address]Mqkwydpt mean volume (Bld) [Entitic vol]7.1 fLLow7.4-11.0[facility] HospitalComment on above:Performed By: #### SANGEETA HUGGINS ACBC #### Testing performed at [address] [address]Begwylmld (Bld) [#/Vol]359 10*3/oDQdqdrw293.0-400.0[facility] HospitalComment on above:Performed By: #### SANGEETA HUGGINS ACBC #### Testing performed at [address] [address]YMJ (Bld) [#/Vol]3.96 10*6/uLLow4.0-5.4AMountainside [facility] Hospital [facility] on above:Performed By: #### SANGEETA HUGGINS ACBC #### Testing performed at [address], [place] [address]VOT (Bld) [#/Vol]7.8 10*3/uLNormal3.6-11.0[facility] HospitalComment on above:Performed By: #### SANGEETA HUGGINS ACBC #### Testing performed at [address] [address]QZP FASTINGon 01-14-2021:G RATIO1.0 RATIOLow1.3-2.2Avita Appomattox HospitalComment on above:Performed By: #### MARQUITA HUGGINSB, ACBC #### Testing performed at [address], [place] [address]XNFLSER1.9 G/dlNormal3.5-5.0[facility] HospitalComment on above:Performed By: #### BHAVNA BHB, ACBC #### Testing performed at [address] [place] [address]AMF [Catalytic activity/Vol]117 U/WMefljd34-083EiikkShore Memorial HospitalComment on above:Performed By: #### MARQUITA HUGGINSB, ACBC #### Testing performed at [address] [place] [address]SRI [Catalytic activity/Vol]24 U/LFndyof95-34UmvmpShore Memorial HospitalComment on above:Performed By: #### MARQUITA HUGGINSB, ACBC #### Testing performed at [address] [place] [address]VHA [Catalytic activity/Vol]22 U/QXzdtdk54-78IjmfbShore Memorial HospitalComment on above:Performed By: #### SANGEETA HUGGINS, ACBC #### Testing performed at [address] [place] [address]Ixwdelqtw [Mass/Vol]0.4 mg/dLNormal0.2-1.2AEast Orange VA Medical CenterComment on above:Performed By: #### BHAVNA BHB, ACBC #### Testing performed at [address] [place] [address]Zrmprss [Mass/Vol]9.0 mg/dLNormal8.4-10.2AEast [facility] Comment on above:Performed By: #### BHAVNA BHB, ACBC #### Testing performed at [address] [place] [address]Wukotmlw [Moles/Vol]101 mmol/XQkunra96-341LahzrShore Memorial HospitalComsheridan community hospital on above:Performed By: #### CMPF BHB, ACBC #### Testing performed at [address] [place] [address]HY9 [Moles/Vol]23 mmol/BJnvesb54-78UdkhzShore Memorial Hospital Comment on above:Performed By: #### SANGEETA HUGGINS ACBC #### Testing performed at [address] [address]Nylsiobdlz [Mass/Vol]1.40 mg/dLHigh0.52-1.04[facility] on above:Performed By: #### SANGEEAT HUGGINS ACBC #### Testing performed at [address] [address]MZU. GFR, Smvywgny72 ml/min/1.73sq.mNRoosevelt General Hospital on above:Performed By: #### JONNYFSANGEETA ACBC #### Testing performed at [address] [address]PQE. GFR,Non Xgxljrpo48 ml/min/1.73sq.[facility] on above:Performed By: #### SANGEETA HUGGINS ACBC #### Testing performed at [address] [address]UIE InformationAverage GFR for 50-59 years old = 93.NormalBlanchard Valley Health System on above:Result Comment: Chronic Kidney disease, GFR = <60. Kidney failure, GFR = <15. The GFR estimate is not adjusted for extreme body surface area or acute process, nor has it been validated for women or ethnic groups other than and .Performed By: #### SANGEETA HUGGINS ACBC #### Testing performed at [address] [address]Fcatmms [Mass/Vol]457 mg/dLCritically qkaa08-404HprhdBlanchard Valley Health System on above:Result Comment: NORMAL <100 mg/dL PREDIABETES 101-126 mg/dL DIABETES 126 mg/dL or higher Result called to read back by: Malvin WOODY 01/13/2021 @ 22:34 by CHARLESPerformed By: #### SANGEETA HUGGINS ACBC #### Testing performed at [address] [address]Bvdcgqxcc [Moles/Vol]4.6 mmol/LNormal3.5-5.1AEast Orange VA Medical CenterComsheridan community hospital on above:Performed By: #### SANGEETA HUGGINS ACBC #### Testing performed at [address] [address]Ixaqyxu [Mass/Vol]7.9 g/dLNormal6.3-8.2AEast [facility] Comment on above:Performed By: #### SANGEETA HUGGINS ACBC #### Testing performed at [address] [address]Hskxes [Moles/Vol]134 mmol/LOkr503-913WezexShore Memorial Hospital Comment on above:Performed By: #### SANGEETA HUGGINS ACBC #### Testing performed at [address] [address]Pxwl nitrogen [Mass/Vol]36 mg/dLHigh7-20[facility] Comment on above:Performed By: #### SANGEETA HUGGINS ACBC #### Testing performed at [address] [address]EDMQ GLUCOSEon 96-73-2846Lspyvuq [Mass/Vol]391 mg/pZXead83-584 [facility] Memorial HospitalSjpywxraIJCTLRYF991655MdakogViktg Ontario HospitalGlucose [Mass/Vol]217 mg/lFUgfn71-228MdbwlShore Memorial HospitalOkudhpbfRJVJJTRA360175KixdorDtdph Ontario HospitalURINE MACROSCOPICon 44-24-1898Kfcjaolwy Ql (U)NegativeNormal NEGATIVEShore Memorial HospitalComment on above:Performed By: #### KRIS KOHLER #### Testing performed at [address] [address]Bqriwlg (U)CLEARNormalCLEARShore Memorial HospitalComment on above:Performed By: #### KRIS KOHLER #### Testing performed at [address] [address]Ziwoj (U)YELLOWNormalYELLOWShore Memorial HospitalComment on above:Performed By: #### KRIS KOHLER #### Testing performed at [address] [address]Movieif Ql (U)500 mg/dlAbnormalNEGATIVEShore Memorial Hospital Comment on above:Performed By: #### KRIS KOHLER #### Testing performed at [address] [place] [address]yZ (U)6.0 [pH]Normal5.0-7.0Shore Memorial HospitalComment on above:Performed By: #### BRENDON KOHLERIC #### Testing performed at [address] [address]HADVN HEMOGLOBINTRACE-INTACTAbnormwiNEGSt. Francis Medical CenterComsheridan community hospital on above:Performed By: #### UMDAVE UMIC #### Testing performed at [address] [address]WDFHS KETONENegativeNormalNEGSt. Francis Medical CenterComment on above:Performed By: #### EDITA UMIC #### Testing performed at [address] [address]JSQFY LEUKOTESTNegativeUNC Health [facility] Comment on above:Performed By: #### BRENDON KOHLERIC #### Testing performed at [address] [address]KANSB NITRATESNegativeNoWinslow Indian Health Care Center Comment on above:Performed By: #### BRENDON KOHLERIC #### Testing performed at [address] [address]PGQOK SPEC GRAVITY1.802Zubzya8.010-1.025[facility] Comment on above:Performed By: #### BRENDON KOHLERIC #### Testing performed at [address] [address]PRSVR TOTAL PROTEINNegativeNoWinslow Indian Health Care Center Comment on above:Performed By: #### BRENDON KOHLERIC #### Testing performed at [address] [address]Acugbmugwicw Qn (U)0.2 {Rikki'U}/dLNormal0.2-1.0Shore Memorial HospitalComment on above:Performed By: #### EDITA UMIC #### Testing performed at [address] [address]FWDHE MICROSCOPICon 73-79-7699Lhtkloru LM.HPF (Urine sed) [#/Area]NegativeNormalNEGSt. Francis Medical CenterComment on above:Performed By: #### UMAC, UMIC #### Testing performed at [address] [address]OUCEHERBMCagbmzVXUIWehjjMeadowview Psychiatric HospitalComment on above: Performed By: #### UMAC, UMIC #### Testing performed at [address] [address]DMCHADFYPXIAemomhBOZMQpbay Ontario HospitalComment on above: Performed By: #### UMAC, UMIC #### Testing performed at [address] [address]Vtmphkchww cells LM Ql (Urine sed)1 TO 5NormalAviSan Vicente Hospital HospitalComment on above:Performed By: #### UMAC, UMIC #### Testing performed at [place] [id number] Ql (Urine sed)NegativeNormalNEGSt. Francis Medical CenterComsheridan community hospital on above:Performed By: #### UMAC, UMIC #### Testing performed at [place] [id number] COMMENTCULTURE CRITERIA NOT MET, NO CULTURE PERFORMED. [facility] HospitalComment on above:Performed By: #### UMAC, UMIC #### Testing performed at [address] [address]LXJDX RBC'SNegativeNormalNEGLovelace Rehabilitation Hospital HospitalComsheridan community hospital on above:Performed By: #### UMAC, UMIC #### Testing performed at [address] [address]GUPME WBC'SNegativeNormalNEGLovelace Rehabilitation Hospital HospitalComment on above:Performed By: #### UMAC, UMIC #### Testing performed at [address] [address]UKL CREAon [phone] [Mass/Vol]1.22 mg/dLHigh 0.50-1.20[facility] HospitalComment on above:Order Comment: Prior to first [facility] Infusion and every 2 weeks if baseline CR is within normal limits.Performed By: #### BCR #### [facility] (DEFAULT) [address] [place], [place] [address]QLW GFR, Deenlzkc97 mL/min/1.73sqMLow>=60[facility] HospitalComment on above:Order Comment: Prior to first [facility] Infusion and every 2 weeks if baseline CR is within normal limits. Performed By: #### BCR #### [facility] (DEFAULT) [address] [address]BIU GFR,Non Njsosrsp33 mL/min/1.73sqMLow>=60[facility] HospitalComment on above:Order Comment: Prior to first [facility] Infusion and every 2 weeks if baseline CR is within normal limits. Performed By: #### BCR #### [facility] (DEFAULT) [address] [address]Utlx nitrogen [Mass/Vol]20 mg/dLNormal7-22[facility] HospitalComment on above:Order Comment: Prior to first [facility] Infusion and every 2 weeks if baseline CR is within normal limits. Performed By: #### BCR #### [facility] (DEFAULT) [address] [address]Bwxh nitrogen/Creatinine [Mass ratio]16 mg/mgNormalOVeterans Health AdministrationComment on above:Order Comment: Prior to first [facility] Infusion and every 2 weeks if baseline CR is within normal limits. Performed By: #### BCR #### [facility] (DEFAULT) [address] [address]LXY AND ELECTRONIC DIFFon 93-31-1646Ftqjavfso (Bld) [#/Vol] 10*3/uLNormal0.00-0.15[facility] HospitalComment on above:Order Comment: Prior to first [facility] Infusion and then every 2 weeks.until results within normal limits. Collect weekly if baseline is abnormal.Performed By: #### [id number] #### [facility] (DEFAULT) [address] [address]Auwkkikjg/100 WBC (Bld)0.4 %NormalOhiohealth Grove City Methodist HospitalComment on above:Order Comment: Prior to first [facility]ex Infusion and then every 2 weeks.until results within normal limits. Collect weekly if baseline is abnormal.Performed By: #### [id number] #### [facility] (DEFAULT) [address] [address]ZKKR STATUSElectronic DifferentialNormalOhio Ashtabula General HospitalComment on above:Order Comment: Prior to first [facility]unex Infusion and then every 2 weeks.until results within normal limits. Collect weekly if baseline is abnormal.Performed By: #### [id number] #### [facility] (DEFAULT) [address] [address]Jeedpremgiv (Bld) [#/Vol]0.16 10*3/uLNormal0.00-0.42[facility] HospitalComment on above:Order Comment: Prior to first [facility]ex Infusion and then every 2 weeks.until results within normal limits. Collect weekly if baseline is abnormal.Performed By: #### [id number] #### [facility] (DEFAULT) [address] [address]Pjgkoxmiywi/100 WBC (Bld)2.1 %NormalOhiohealth Grove City Methodist HospitalComment on above:Order Comment: Prior to first [facility]unex Infusion and then every 2 weeks.until results within normal limits. Collect weekly if baseline is abnormal.Performed By: #### [id number] #### [facility] (DEFAULT) [address] [address]Sjdcmyeezt (Bld) [Volume fraction]32.0 %Low34.9-44.3[facility] HospitalComment on above:Order Comment: Prior to first [employer]unex Infusion and then every 2 weeks.until results within normal limits. Collect weekly if baseline is abnormal.Performed By: #### [id number] #### [facility] (DEFAULT) [address] [address]Jvjklvhoru (Bld) [Mass/Vol]10.1 g/dLLow11.4-15.2[facility] HospitalComment on above:Order Comment: Prior to first [employer]unex Infusion and then every 2 weeks.until results within normal limits. Collect weekly if baseline is abnormal.Performed By: #### [id number] #### [facility] (DEFAULT) [address] [address]Gwovytci Grans %0.3 %[facility] HospitalComment on above:Order Comment: Prior to first Gamunex Infusion and then every 2 weeks.until results within normal limits. Collect weekly if baseline is abnormal.Performed By: #### [id number] #### [facility] (DEFAULT) [address] [address]Vgxnfgyp Grans Absolute<0.04Normal<=0.09[facility] HospitalComment on above:Order Comment: Prior to first [employer]unex Infusion and then every 2 weeks.until results within normal limits. Collect weekly if baseline is abnormal.Performed By: #### [id number] #### [facility] (DEFAULT) [address] [address]Poiwinrpgrv (Bld) [#/Vol]2.23 10*3/uLNormal1.16-3.51[facility] HospitalComment on above:Order Comment: Prior to first [facility]ex Infusion and then every 2 weeks.until results within normal limits. Collect weekly if baseline is abnormal.Performed By: #### [id number] #### [facility] (DEFAULT) [address] [place] [address]Yigbqggeevf/100 WBC (Bld)28.8 %[facility] HospitalComment on above:Order Comment: Prior to first [facility]ex Infusion and then every 2 weeks.until results within normal limits. Collect weekly if baseline is abnormal.Performed By: #### [id number] #### [facility] (DEFAULT) [address] [place] [address]JCY (RBC) [Entitic vol]86.0 vYFfelut87.6-97.7[facility] HospitalComment on above:Order Comment: Prior to first [employer]unex Infusion and then every 2 weeks.until results within normal limits. Collect weekly if baseline is abnormal.Performed By: #### [id number] #### [facility] (DEFAULT) [address] [address]Uxmq Cell Hgb27.2 qdLacmpq39.9-33.9[facility] HospitalComment on above:Order Comment: Prior to first [employer]unex Infusion and then every 2 weeks.until results within normal limits. Collect weekly if baseline is abnormal.Performed By: #### [id number] #### [facility] (DEFAULT) [address] [address]Idlh Cell Hgb Conc31.6 g/bEWnncei87.4-35.9[facility] HospitalComment on above:Order Comment: Prior to first [facility]unex Infusion and then every 2 weeks.until results within normal limits. Collect weekly if baseline is abnormal.Performed By: #### [id number] #### [facility] (DEFAULT) [address] [address]Srwofolqu (Bld) [#/Vol]0.38 10*3/uLNormal0.22-0.87[facility] HospitalComment on above:Order Comment: Prior to first [facility]ex Infusion and then every 2 weeks.until results within normal limits. Collect weekly if baseline is abnormal.Performed By: #### [id number] #### [facility] (DEFAULT) [address] [address]Pxfifehcd/100 WBC (Bld)4.9 %NormalOhiohealth Grove City Methodist HospitalComment on above:Order Comment: Prior to first [employer]unex Infusion and then every 2 weeks.until results within normal limits. Collect weekly if baseline is abnormal.Performed By: #### [id number] #### [facility] (DEFAULT) [address] [address]Zcfbllmak RBC0.0 /100 WBCNormal<=0.2[facility] HospitalComment on above:Order Comment: Prior to first [employer]ex Infusion and then every 2 weeks.until results within normal limits. Collect weekly if baseline is abnormal.Performed By: #### [id number] #### [facility] (DEFAULT) [address] [address]Meybxdxf mean volume (Bld) [Entitic vol]9.4 fLNormal8.5-12.2 [facility] HospitalComment on above:Order Comment: Prior to first [employer]unex Infusion and then every 2 weeks.until results within normal li mits. Collect weekly if baseline is abnormal.Performed By: #### [id number] #### [facility] (DEFAULT) [address] [address]Qjbulxgle (Bld) [#/Vol]352 10*3/qYKssqlh875-037PlysOhiohealth Grove City Methodist HospitalComment on above:Order Comment: Prior to first [facility]unex Infusion and then every 2 weeks.until results within normal limits. Collect weekly if baseline is abnormal.Performed By: #### [id number] #### [facility] (DEFAULT) [address] [address]WJN (Bld) [#/Vol]3.72 10*6/uLLow3.91-5.04[facility] HospitalComment on above:Order Comment: Prior to first Gamunex Infusion and then every 2 weeks.until results within normal limits. Collect weekly if baseline is abnormal.Performed By: #### [id number] #### [facility] (DEFAULT) [address] [address]CEZ Efyvdqqaibhz57.3 %High10.8-14.9[facility] HospitalComment on above:Order Comment: Prior to first Gamunex Infusion and then every 2 weeks.until results within normal limits. Collect weekly if baseline is abnormal.Performed By: #### [id number] #### [facility] (DEFAULT) [address] [address]Wfvp + Bands Auto63.5 %NormalOhiohealth Grove City Methodist HospitalComment on above:Order Comment: Prior to first Gamunex Infusion and then every 2 weeks.until results within normal limits. Collect weekly if baseline is abnormal.Performed By: #### [id number] #### [facility] (DEFAULT) [address] [address]Vzsf + Bands,Absolute Auto4.93 K/uLNormal1.64-7.28[facility] HospitalComment on above:Order Comment: Prior to first Gamunex Infusion and then every 2 weeks.until results within normal limits. Collect weekly if baseline is abnormal.Performed By: #### [id number] #### [facility] (DEFAULT) [address] [address]WIW (Bld) [#/Vol]7.75 10*3/uLNormal3.99-11.19[facility] HospitalComment on above:Order Comment: Prior to first Gamunex Infusion and then every 2 weeks.until results within normal limits. Collect weekly if baseline is abnormal.Performed By: #### [id number] #### [facility] (DEFAULT) [address] [address]WJC CREAon 91-32-4931Xoafnmnrzr [Mass/Vol]1.10 mg/dLNormal 0.50-1.20[facility] HospitalComment on above:Order Comment: Prior to first Gamunex Infusion and every 2 weeks if baseline CR is within normal limits.Performed By: #### BCR #### [facility] (DEFAULT) [address] [address]XQI GFR, >=60Normal>=60[facility] HospitalComment on above:Order Comment: Prior to first Gamunex Infusion and every 2 weeks if baseline CR is within normal limits.Performed By: #### BCR #### [facility] (DEFAULT) [address] [address]CRW GFR,Non Farcfpbe29 mL/min/1.73sqMLow>=60[facility] HospitalComment on above:Order Comment: Prior to first Gamunex Infusion and every 2 weeks if baseline CR is within normal limits. Performed By: #### BCR #### [facility] (DEFAULT) [address] [place] [address]Laru nitrogen [Mass/Vol]26 mg/dLHigh7-22[facility] HospitalComment on above:Order Comment: Prior to first [facility]unex Infusion and every 2 weeks if baseline CR is within normal limits.Performed By: #### BCR #### [facility] (DEFAULT) [address] [address]Bqpz nitrogen/Creatinine [Mass ratio]24 mg/mgNoAvita Health System Ontario HospitalComment on above:Order Comment: Prior to first Gamunex Infusion and every 2 weeks if baseline CR is within normal limits. Performed By: #### BCR #### [facility] (DEFAULT) [address] [address]KAE AND ELECTRONIC DIFFon 46-21-2982Epqyjtipp (Bld) [#/Vol] 10*3/uLNormal0.00-0.15[facility] HospitalComment on above:Order Comment: Prior to first Gamunex Infusion and every 2 weeks if baseline CR is within normal limits.Performed By: #### BCR #### [facility] (DEFAULT) [address] [address]Kxzdkppsg/100 WBC (Bld)0.3 %NormalOhiohealth Grove City Methodist HospitalComment on above:Order Comment: Prior to first Gamunex Infusion and every 2 weeks if baseline CR is within normal limits.Performed By: #### BCR #### [facility] (DEFAULT) [address] [address]GRDU STATUSElectronic DifferentialNoAvita Health System Ontario HospitalComment on above:Order Comment: Prior to first Gamunex Infusion and every 2 weeks if baseline CR is within normal limits.Performed By: #### BCR #### [facility] (DEFAULT) [address] [address]Gezrvysjenf (Bld) [#/Vol]0.20 10*3/uLNormal0.00-0.42[facility] HospitalComment on above:Order Comment: Prior to first Gamunex Infusion and every 2 weeks if baseline CR is within normal limits. Performed By: #### BCR #### [facility] (DEFAULT) [address] [address]Pmexmlyrbwt/100 WBC (Bld)2.0 %[facility] HospitalComment on above:Order Comment: Prior to first Gamunex Infusion and every 2 weeks if baseline CR is within normal limits.Performed By: #### BCR #### [facility] (DEFAULT) [address] [address]Vjjmaikkyf (Bld) [Volume fraction]31.0 %Low34.9-44.3[facility] HospitalComment on above:Order Comment: Prior to first Gamunex Infusion and every 2 weeks if baseline CR is within normal limits. Performed By: #### BCR #### [facility] (DEFAULT) [address] [address]Cgkaigotbf (Bld) [Mass/Vol]10.0 g/dLLow11.4-15.2[facility] HospitalComment on above:Order Comment: Prior to first Gamunex Infusion and every 2 weeks if baseline CR is within normal limits. Performed By: #### BCR #### [facility] (DEFAULT) [address] [address]Phgkbspa Grans %0.2 %[facility] HospitalComment on above:Order Comment: Prior to first Gamunex Infusion and every 2 weeks if baseline CR is within normal limits.Performed By: #### BCR #### [facility] (DEFAULT) [address] [address]Bqxtmlmd Grans Absolute<0.04Normal<=0.09[facility] HospitalComment on above:Order Comment: Prior to first Gamunex Infusion and every 2 weeks if baseline CR is within normal limits.Performed By: #### BCR #### [facility] (DEFAULT) [address] [address]Bkrsynhakmx (Bld) [#/Vol]2.96 10*3/uLNormal1.16-3.51[facility] HospitalComment on above:Order Comment: Prior to first Gamunex Infusion and every 2 weeks if baseline CR is within normal limits. Performed By: #### BCR #### [facility] (DEFAULT) [address] [address]Iriqsntyrwg/100 WBC (Bld)29.9 %NormalOhiohealth Grove City Methodist HospitalComment on above:Order Comment: Prior to first Gamunex Infusion and every 2 weeks if baseline CR is within normal limits.Performed By: #### BCR #### [facility] (DEFAULT) [address] [address]JMZ (RBC) [Entitic vol]84.9 tCCpobug88.6-97.7[facility] HospitalComment on above:Order Comment: Prior to first Gamunex Infusion and every 2 weeks if baseline CR is within normal limits. Performed By: #### BCR #### [facility] (DEFAULT) [address] [address]Tkjj Cell Hgb27.4 roDpqxus32.9-33.9[facility] HospitalComment on above:Order Comment: Prior to first [employer]unex Infusion and every 2 weeks if baseline CR is within normal limits.Performed By: #### BCR #### [facility] (DEFAULT) [address] [address]Ejzu Cell Hgb Conc32.3 g/mWAbqavn61.4-35.9[facility] HospitalComment on above:Order Comment: Prior to first [employer]unex Infusion and every 2 weeks if baseline CR is within normal limits. Performed By: #### BCR #### [facility] (DEFAULT) [address] [address]Yerorkbrd (Bld) [#/Vol]0.50 10*3/uLNormal0.22-0.87[facility] HospitalComment on above:Order Comment: Prior to first Gamunex Infusion and every 2 weeks if baseline CR is within normal limits. Performed By: #### BCR #### [facility] (DEFAULT) [address] [place] [address]Lovmsdbfl/100 WBC (Bld)5.1 %NormalOhiohealth Grove City Methodist HospitalComment on above:Order Comment: Prior to first Gamunex Infusion and every 2 weeks if baseline CR is within normal limits.Performed By: #### BCR #### [facility] (DEFAULT) [address] [place] [address]Jhaxapzpb RBC0.0 /100 WBCNormal<=0.2[facility] HospitalComment on above:Order Comment: Prior to first Gamunex Infusion and every 2 weeks if baseline CR is within normal limits.Performed By: #### BCR #### [facility] (DEFAULT) [address] [place] [address]Kzgrjdlj mean volume (Bld) [Entitic vol]9.2 fLNormal8.5-12.2 [facility] HospitalComment on above:Order Comment: Prior to first [employer]unex Infusion and every 2 weeks if baseline CR is within normal angel its.Performed By: #### BCR #### [facility] (DEFAULT) [address] [place] [address]Ffllswjqc (Bld) [#/Vol]372 10*3/jRFqecjn835-777GrebOhiohealth Grove City Methodist HospitalComment on above:Order Comment: Prior to first [employer]unex Infusion and every 2 weeks if baseline CR is within normal limits. Performed By: #### BCR #### [facility] (DEFAULT) [address] [place] [address] 12066MIN (Bld) [#/Vol]3.65 10*6/uLLow3.91-5.04[facility] Methodist HospitalComment on above:Order Comment: Prior to first [facility] and every 2 weeks if baseline CR is within normal limits.Performed By: #### BCR #### [facility] (DEFAULT) [address] [place] [address] 61711INY Oahldwcwmjme90.7 %Bwreae72.8-14.9[facility] HospitalComment on above:Order Comment: Prior to first [facility] Infusion and every 2 weeks if baseline CR is within normal limits.Performed By: #### BCR #### [facility] (DEFAULT) [address] [place] [address] 43862Gxgk + Bands Auto62.5 %NormalOhiohealth Grove City Methodist HospitalComment on above:Order Comment: Prior to first [facility] Infusion and every 2 weeks if baseline CR is within normal limits.Performed By: #### BCR #### [facility] (DEFAULT) [address] [place] [address] 71312Tbzz + Bands,Absolute Auto6.18 K/uLNormal1.64-7.28[facility] HospitalComment on above:Order Comment: Prior to first [facility] Infusion and every 2 weeks if baseline CR is within normal limits. Performed By: #### BCR #### [facility] (DEFAULT) [address] [place] [address] 08867QGD (Bld) [#/Vol]9.89 10*3/uLNormal3.99-11.19[facility] HospitalComment on above:Order Comment: Prior to first [facility] Infusion and every 2 weeks if baseline CR is within normal limits. Performed By: #### BCR #### [facility] (DEFAULT) [address] [place] [address] 12323IQW/HRT MACULA OUon [phone]/HRT MACULA OURight Eye Quality was good. Findings include subretinal fluid. Interval change is better. Recommendation for management is to continue treatment. Left Eye Quality was good. Findings include subretinal fluid. Interval change is better. Recommendation for management is to continue treatment.[facility]ion HospitalApply dressingon [id number] dressing OhioHealthApply dressingOrdered By: Virginia Aguirre on [phone] CREA on 53-30-2927Eqjdsaadzy [Mass/Vol]0.99 mg/dLNormal0.50-1.20[facility] HospitalComment on above:Order Comment: Prior to first [facility] Infusion and every 2 weeks if baseline CR is within normal limits.Performed By: #### BCR #### [facility] (DEFAULT) [address] [address]BVO GFR, >=60Normal>=60[facility] HospitalComment on above:Order Comment: Prior to first [facility] Infusion and every 2 weeks if baseline CR is within normal limits.Performed By: #### BCR #### [facility] (DEFAULT) [address] [place] [address] 00217VHF GFR,Non Ijujsrux71 mL/min/1.73sqMLow>=60[facility] HospitalComment on above:Order Comment: Prior to first [facility] Infusion and every 2 weeks if baseline CR is within normal limits. Performed By: #### BCR #### [facility] (DEFAULT) [address] [address]Ynqm nitrogen [Mass/Vol]25 mg/dLHigh7-22[facility] HospitalComment on above:Order Comment: Prior to first [facility]ex Infusion and every 2 weeks if baseline CR is within normal limits.Performed By: #### BCR #### [facility] (DEFAULT) [address] [address]Jeae nitrogen/Creatinine [Mass ratio]25 mg/mgNormalOgao Ashtabula General HospitalComment on above:Order Comment: Prior to first [facility] Infusion and every 2 weeks if baseline CR is within normal limits. Performed By: #### BCR #### [facility] (DEFAULT) [address] [address]BMU AND ELECTRONIC DIFFon 23-25-7830Yfqgdstec (Bld) [#/Vol] 0.04 10*3/uLNormal0.00-0.15[facility] HospitalComment on above:Order Comment: Prior to first [facility] Infusion and every 2 weeks if baseline CR is within normal limits.Performed By: #### BCR #### [facility] (DEFAULT) [address] [address]Vinjotidm/100 WBC (Bld)0.4 %Marion HospitalComment on above:Order Comment: Prior to first [facility]ex Infusion and every 2 weeks if baseline CR is within normal limits.Performed By: #### BCR #### [facility] (DEFAULT) [address] [address]ZRSA STATUSElectronic DifferentialNormalOhio Ashtabula General HospitalComment on above:Order Comment: Prior to first [facility] Infusion and every 2 weeks if baseline CR is within normal limits.Performed By: #### BCR #### [facility] (DEFAULT) [address] [address]Vchbpqatccn (Bld) [#/Vol]0.13 10*3/uLNormal0.00-0.42[facility] HospitalComment on above:Order Comment: Prior to first Gamunex Infusion and every 2 weeks if baseline CR is within normal limits. Performed By: #### BCR #### [facility] (DEFAULT) [address] [address]Yjimioylfpi/100 WBC (Bld)1.4 %[facility] HospitalComment on above:Order Comment: Prior to first [facility] Infusion and every 2 weeks if baseline CR is within normal limits.Performed By: #### BCR #### [facility] (DEFAULT) [address] [address]Ggmdrvfdow (Bld) [Volume fraction]33.6 %Low34.9-44.3[facility] HospitalComment on above:Order Comment: Prior to first [facility]ex Infusion and every 2 weeks if baseline CR is within normal limits. Performed By: #### BCR #### [facility] (DEFAULT) [address] [address]Heqynvzcyu (Bld) [Mass/Vol]10.6 g/dLLow11.4-15.2[facility] HospitalComment on above:Order Comment: Prior to first Gamunex Infusion and every 2 weeks if baseline CR is within normal limits. Performed By: #### BCR #### [facility] (DEFAULT) [address] [address]Gxkcocwl Grans %0.2 %[facility] HospitalComment on above:Order Comment: Prior to first [facility]unex Infusion and every 2 weeks if baseline CR is within normal limits.Performed By: #### BCR #### [facility] (DEFAULT) [address] [address]Gkizvqtm Grans Absolute<0.04Normal<=0.09[facility] HospitalComment on above:Order Comment: Prior to first Gamunex Infusion and every 2 weeks if baseline CR is within normal limits.Performed By: #### BCR #### [facility] (DEFAULT) [address] [address]Ymhcvvptrxx (Bld) [#/Vol]2.53 10*3/uLNormal1.16-3.51[facility] HospitalComment on above:Order Comment: Prior to first [facility]unex Infusion and every 2 weeks if baseline CR is within normal limits. Performed By: #### BCR #### [facility] (DEFAULT) [address] [address]Mwnbjozkahb/100 WBC (Bld)27.2 %[facility] HospitalComment on above:Order Comment: Prior to first Gamunex Infusion and every 2 weeks if baseline CR is within normal limits.Performed By: #### BCR #### [facility] (DEFAULT) [address] [address]ZWG (RBC) [Entitic vol]86.4 iCFvmogg10.6-97.7[facility] HospitalComment on above:Order Comment: Prior to first [facility]unex Infusion and every 2 weeks if baseline CR is within normal limits. Performed By: #### BCR #### [facility] (DEFAULT) [address] [address]Ybsl Cell Hgb27.2 ejTokmpj40.9-33.9[facility] HospitalComment on above:Order Comment: Prior to first [facility] Infusion and every 2 weeks if baseline CR is within normal limits.Performed By: #### BCR #### [facility] (DEFAULT) [address] [address]Spfp Cell Hgb Conc31.5 g/gZQgccsf09.4-35.9[facility] HospitalComment on above:Order Comment: Prior to first Gamunex Infusion and every 2 weeks if baseline CR is within normal limits. Performed By: #### BCR #### [facility] (DEFAULT) [address] [address]Nvgcttzch (Bld) [#/Vol]0.60 10*3/uLNormal0.22-0.87[facility] HospitalComment on above:Order Comment: Prior to first [facility]ex Infusion and every 2 weeks if baseline CR is within normal limits. Performed By: #### BCR #### [facility] (DEFAULT) [address] [address]Mxqeasbts/100 WBC (Bld)6.4 %NormalOhiohealth Grove City Methodist HospitalComment on above:Order Comment: Prior to first Gamunex Infusion and every 2 weeks if baseline CR is within normal limits.Performed By: #### BCR #### [facility] (DEFAULT) [address] [address]Azpcppebe RBC0.0 /100 WBCNormal<=0.2[facility] HospitalComment on above:Order Comment: Prior to first Gamunex Infusion and every 2 weeks if baseline CR is within normal limits.Performed By: #### BCR #### [facility] (DEFAULT) [address] [address]Ymumgoia mean volume (Bld) [Entitic vol]9.5 fLNormal8.5-12.2 [facility] HospitalComment on above:Order Comment: Prior to first [facility]unex Infusion and every 2 weeks if baseline CR is within normal angel its.Performed By: #### BCR #### [facility] (DEFAULT) [address] [place] [address] 43[address]Fmjkyofsy (Bld) [#/Vol]365 10*3/cWXtjtyn981-573UurhOhiohealth Grove City Methodist HospitalComment on above:Order Comment: Prior to first Gamunex Infusion and every 2 weeks if baseline CR is within normal limits. Performed By: #### BCR #### [facility] (DEFAULT) [address] [place] [address] 06178TGG (Bld) [#/Vol]3.89 10*6/uLLow3.91-5.04[facility] HospitalComment on above:Order Comment: Prior to first Gamunex Infusion and every 2 weeks if baseline CR is within normal limits.Performed By: #### BCR #### [facility] (DEFAULT) [address] [place] [address] 24628UDQ Dmfyzawkxkqh45.5 %Sfdzwb97.8-14.9[facility] HospitalComment on above:Order Comment: Prior to first Gamunex Infusion and every 2 weeks if baseline CR is within normal limits.Performed By: #### BCR #### [facility] (DEFAULT) [address] [place] [address] 62418Zcqh + Bands Auto64.4 %NormalOhiohealth Grove City Methodist HospitalComment on above:Order Comment: Prior to first Gamunex Infusion and every 2 weeks if baseline CR is within normal limits.Performed By: #### BCR #### [facility] (DEFAULT) [address] [place] [address] 28160Hxtl + Bands,Absolute Auto5.99 K/uLNormal1.64-7.28[facility] HospitalComment on above:Order Comment: Prior to first Gamunex Infusion and every 2 weeks if baseline CR is within normal limits. Performed By: #### BCR #### [facility] (DEFAULT) [address] [place] [address] 08190YEY (Bld) [#/Vol]9.31 10*3/uLNormal3.99-11.19[facility] HospitalComment on above:Order Comment: Prior to first Gamunex Infusion and every 2 weeks if baseline CR is within normal limits. Performed By: #### BCR #### [facility] (DEFAULT) [address] [address]SET Westergren method (Bld) [Velocity]Ordered By: Terence Martinez on [phone] (Bld) [Velocity]64 mm/hHighOhioHealthInterpretation and review of laboratory resultsAbnormDunlap Memorial HospitalioHealthOCT OPTIC NERVE OUon [id number] Memorial HospitalRadiology Study observation (narrative)[facility] HospitalBUN CREAon 32-36-8970Wxtjpfktrl [Mass/Vol]1.13 mg/dL0.50 - 1.20 mg/dLMartin Memorial HospitalGFR/1.73 sq M.predicted MDRD (S/P/Bld) [Vol rate/Area]50 mL/min/{1.73_m2}Low>=60 mL/min/1.73sqMercy Health St. Rita's Medical Center GFR/1.73 sq M.predicted MDRD (S/P/Bld) [Vol rate/Area]mL/min/{1.73_m2}>=60 mL/min/1.73sqMercy Health St. Rita's Medical CenterInterpretation and review of laboratory resultsAbnoOhioHealth Nelsonville Health CenterUrea nitrogen [Mass/Vol]20 mg/dL7 - 22 mg/dLMartin Memorial HospitalUrea nitrogen/Creatinine [Mass ratio]18 mg/mgOSUniversity Hospitals Geneva Medical CenterOSU [facility] HospitalCBC AND ELECTRONIC DIFFon 88-59-3469Qlxywvjju (Bld) [#/Vol]10*3/uL0.00 - 0.15 K/uLOSUniversity Hospitals Geneva Medical CenterBasophils/100 WBC (Bld)0.3 %[facility] HospitalDIFF STATUSElectronic DifferentialOSU [facility] Health – [facility] Jewish HospitalEosinophils (Bld) [#/Vol]0.16 10*3/uL0.00 - 0.42 K/uLOSUniversity Hospitals Geneva Medical CenterEosinophils/100 WBC (Bld)2.1 %[facility] HospitalErythrocyte distribution width (RBC) [Ratio]14.0 %10.8 - 14.9 %[facility] HospitalHematocrit (Bld) [Volume fraction]33.7 %Low34.9 - 44.3 % [facility] HospitalHemoglobin (Bld) [Mass/Vol]10.3 g/dLLow11.4 - 15.2 g/dL [facility] HospitalImmature granulocytes (Bld) [#/Vol]10*3/uL<=0.09 K/uL [facility] HospitalImmature granulocytes/100 WBC (Bld)0.3 %[facility] HospitalInterpretation and review of laboratory resultsAbnormalOGenesis HospitalLymphocytes (Bld) [#/Vol]2.21 10*3/uL1.16 - 3.51 K/uLMartin Memorial HospitalLymphocytes/100 WBC (Bld)29.3 %The Jewish HospitalH (RBC) [Entitic mass]27.5 pg25.9 - 33.9 pgThe Jewish HospitalHC (RBC) [Mass/Vol]30.6 g/dLLow31.4 - 35.9 g/dLMartin Memorial HospitalMCV (RBC) [Entitic vol]90.1 fL79.6 - 97.7 [facility] HospitalMonocytes (Bld) [#/Vol]0.46 10*3/uL0.22 - 0.87 K/uLMartin Memorial HospitalMonocytes/100 WBC (Bld)6.1 %[facility] HospitalNeutrophils (Bld) [#/Vol]4.66 10*3/uL1.64 - 7.28 K/uLMartin Memorial HospitalNucleated RBC/100 WBC (Bld) [Ratio]0.0 %<=0.2 /100 WBCMartin Memorial HospitalPlatelet mean volume (Bld) [Entitic vol]9.5 fL 8.5 - 12.2 [facility] HospitalPlatelets (Bld) [#/Vol]357 10*3/uL150 - 393 K/[facility] HospitalRBC (Bld) [#/Vol]3.74 10*6/uLLowWayne HealthCare Main Campusegmented neutrophils/100 WBC (Bld)61.9 %[facility] WBC (Bld) [#/Vol]7.53 10*3/uL3.99 - 11.19 K/[facility] HospitalOSUniversity Hospitals Geneva Medical CenterXR MYELOMA SURVEYon [id number]: No discrete lytic lesions or pathologic fractures. [...] AP Chest: No obvious displaced rib fracture. [facility] HospitalIra Gonzalez MD - 09/26/2020 EXAM: XR [...] discrete lytic lesions or pathologic fractures. [facility] HospitalRadiology Study observation (narrative)[facility] HospitalXR MYELOMA SURVEYOrdered By: Ira Gonzalez on [id number] Memorial Hospital Work Phone: BUF CREAon 77-31-3824Hmxepdjizl [Mass/Vol]1.19 mg/dL 0.50 - 1.20 mg/dLOSUniversity Hospitals Geneva Medical CenterGFR/1.73 sq M.predicted MDRD (S/P/Bld) [Vol rate/Area]47 mL/min/{1.73_m2}Low>=60 mL/min/1.73sqMercy Health St. Rita's Medical CenterGFR/1.73 sq M.predicted MDRD (S/P/Bld) [Vol rate/Area]57 mL/min/{1.73_m2} Low>=60 mL/min/1.73sqMercy Health St. Rita's Medical CenterInterpretation and review of laboratory resultsAbnormalOGenesis HospitalUrea nitrogen [Mass/Vol]26 mg/dLHigh7 - 22 mg/dLOSU [facility]cy Health – [facility] Jewish HospitalUrea nitrogen/Creatinine [Mass ratio]22 mg/mgOSU [facility] Health – [facility] Jewish HospitalOS[facility] HospitalCBC AND ELECTRONIC DIFFon 40-02-7216Keqqcfnps (Bld) [#/Vol]0.05 10*3/uL0.00 - 0.15 K/uL OSUniversity Hospitals Geneva Medical CenterBasophils/100 WBC (Bld)0.6 %[facility] DIFF STATUSElectronic DifferentialOSU [facility]cy Health – [facility] Jewish HospitalEosinophils (Bld) [#/Vol]0.24 10*3/uL0.00 - 0.42 K/uLOSUniversity Hospitals Geneva Medical CenterEosinophils/100 WBC (Bld)2.8 %[facility] HospitalErythrocyte distribution width (RBC) [Ratio] 13.9 %10.8 - 14.9 %[facility] HospitalHematocrit (Bld) [Volume fraction] 33.5 %Low34.9 - 44.3 %[facility] HospitalHemoglobin (Bld) [Mass/Vol]10.7 g/dLLow11.4 - 15.2 g/dLMartin Memorial HospitalImmature granulocytes (Bld) [#/Vol]10*3/uL<=0.09 K/uLOSUniversity Hospitals Geneva Medical CenterImmature granulocytes/100 WBC (Bld)0.2 %[facility] HospitalInterpretation and review of laboratory resultsAbnormalOSU [facility] – [facility] Jewish HospitalLymphocytes (Bld) [#/Vol]2.63 10*3/uL 1.16 - 3.51 K/uLOSU [facility]cy Health – The Jewish HospitalLymphocytes/100 WBC (Bld)30.6 %[facility] HospitalMCH (RBC) [Entitic mass]28.1 pg25.9 - 33.9 pgOSU Mercy Health – The Jewish HospitalMCHC (RBC) [Mass/Vol]31.9 g/dL31.4 - 35.9 g/dLMartin Memorial HospitalMCV (RBC) [Entitic vol]87.9 fL79.6 - 97.7 fLOSU [facility] Monocytes (Bld) [#/Vol]0.50 10*3/uL0.22 - 0.87 K/[facility] Monocytes/100 WBC (Bld)5.8 %[facility] HospitalNeutrophils (Bld) [#/Vol] 5.15 10*3/uL1.64 - 7.28 K/[facility] HospitalNucleated RBC/100 WBC (Bld) [Ratio]0.0 %<=0.2 /100 WBCMartin Memorial HospitalPlatelet mean volume (Bld) [Entitic vol]9.2 fL8.5 - 12.2 [facility] HospitalPlatelets (Bld) [#/Vol] 377 10*3/uL150 - 393 K/uLMartin Memorial HospitalRBC (Bld) [#/Vol]3.81 10*6/uL LowWayne HealthCare Main Campusegmented neutrophils/100 WBC (Bld)60.0 %[facility] HospitalWBC (Bld) [#/Vol]8.59 10*3/uL3.99 - 11.19 K/uLAntelope Valley Hospital Medical CenterCBC(NO DIFF)on 30-57-8796Xkovhqmcant distribution width (RBC) [Ratio]15.0 %High11.5-14.5ARegency Hospital Cleveland EastComment on above: Performed By: #### HEMOG, CMPF, LIP2, RTSH, T42 #### Testing performed at [address] [address]Tscuitclml (Bld) [Volume fraction]39.9 %Kvejgw50.0-48.0[facility] Surgical HospitalComment on above:Performed By: #### HEMOG, CMPF, LIP2, RTSH, T42 #### Testing performed at [address] [address]Mudzgjnliw (Bld) [Mass/Vol]13.3 g/dXYrcbki34.0-16.0[facility] HospitalComment on above:Performed By: #### HEMOG, CMPF, LIP2, RTSH, T42 #### Testing performed at [address] [address]GGM (RBC) [Entitic mass]28.3 nuOgzwry67.0-35.0[facility] HospitalComment on above:Performed By: #### HEMOG, CMPF, LIP2, RTSH, T42 #### Testing performed at [address] [address]DGEZ (RBC) [Mass/Vol]33.4 g/sJCcktew56.0-37.0[facility] HospitalComment on above:Performed By: #### HEMOG, CMPF, LIP2, RTSH, T42 #### Testing performed at [address] [address]IZB (RBC) [Entitic vol]84.7 fURugmuc38.0-100.0[facility] HospitalComment on above:Performed By: #### HEMOG, CMPF, LIP2, RTSH, T42 #### Testing performed at [address] [address]Mlmiwwfa mean volume (Bld) [Entitic vol]6.9 fLLow7.4-11.0[facility] HospitalComment on above:Result Comment: Testing performed at [place] [id number] By: #### HEMOG, CMPF, LIP2, RTSH, T42 #### Testing performed at [address] [address]Evcradzee (Bld) [#/Vol]275 10*3/rQKcddbb660.0-400.0[facility] HospitalComment on above:Performed By: #### HEMOG, CMPF, LIP2, RTSH, T42 #### Testing performed at [address] [address]HPE (Bld) [#/Vol]4.72 10*6/uLNormal4.0-5.4ARegency Hospital Cleveland East Comment on above:Performed By: #### HEMOG, CMPF, LIP2, RTSH, T42 #### Testing performed at [address] [address]YRF (Bld) [#/Vol]6.7 10*3/uLNormal3.6-11.0[facility] Comment on above:Performed By: #### HEMOG, CMPF, LIP2, RTSH, T42 #### Testing performed at [address] [address]QMF FASTINGon 1A:G RATIO1.2 RATIOLow1.3-2.2ARegency Hospital Cleveland EastComment on above:Performed By: #### HEMOG, CMPF, LIP2, RTSH, T42 #### Testing performed at [address] [address]MNHCUEA5.1 G/dlNormal3.5-5.0[facility] HospitalComment on above:Performed By: #### HEMOG, CMPF, LIP2, RTSH, T42 #### Testing performed at [address] [address]JQT [Catalytic activity/Vol]103 U/SKfllye71-296KcgdaOhio Valley Surgical HospitalComment on above:Performed By: #### HEMOG, CMPF, LIP2, RTSH, T42 #### Testing performed at [address] [address]KBZ [Catalytic activity/Vol]17 U/LNormal<35[facility] Comment on above:Performed By: #### HEMOG, CMPF, LIP2, RTSH, T42 #### Testing performed at [address] [address]QRA [Catalytic activity/Vol]23 U/WIerwxe47-84WqdtlOhio Valley Surgical HospitalComment on above:Performed By: #### HEMOG, CMPF, LIP2, RTSH, T42 #### Testing performed at [address] [address]Rjnoxgefo [Mass/Vol]0.1 mg/dLLow0.2-1.3ARegency Hospital [facility] East Comment on above:Performed By: #### HEMOG, CMPF, LIP2, RTSH, T42 #### Testing performed at [address] [address]Apwjmxl [Mass/Vol]9.2 mg/dLNormal8.4-10.2ARegency Hospital [facility] Comment on above:Performed By: #### HEMOG, CMPF, LIP2, RTSH, T42 #### Testing performed at [address] [address]Aiormufd [Moles/Vol]108 mmol/NFbdz28-914CfzwlOhio Valley Surgical Hospital Comment on above:Result Comment: Please note: Triglyceride levels of 600mg/dL or higher may positively bias chlorideresults by approximately 2.1 mmolPerformed By: #### HEMOG, CMPF, LIP2, RTSH, T42 #### Testing performed at [address] [address]VR5 [Moles/Vol]23 mmol/DHitqxq50-98JrnirOhio Valley Surgical HospitalComment on above:Performed By: #### HEMOG, CMPF, LIP2, RTSH, T42 #### Testing performed at [address] [address]Sohjtsudre [Mass/Vol]1.00 mg/dLNormal0.7-1.2ARegency Hospital Cleveland EastComment on above:Performed By: #### HEMOG, CMPF, LIP2, RTSH, T42 #### Testing performed at [address] [address]DDR. GFR,>60NormalARegency Hospital Cleveland EastComment on above:Performed By: #### HEMOG, CMPF, LIP2, RTSH, T42 #### Testing performed at [address] [address]IEO. GFR,Non >60NormUNM Sandoval Regional [facility] Comment on above:Performed By: #### HEMOG, CMPF, LIP2, RTSH, T42 #### Testing performed at [address] [address]IYF InformationAverage GFR for 50-59 years old = 93.NormalOhio Valley Surgical HospitalComment on above:Result Comment: Chronic Kidney disease, GFR = <60. Kidney failure, GFR = <15. The GFR estimate is not adjusted for extreme body surface area or acute process, nor has it been validated for women or ethnic groups other than and . Testing performed at [place], [place] [address]Rwjxgmhdb By: #### HEMOG, CMPF, LIP2, RTSH, T42 #### Testing performed at [address] [address]Bcuonby [Mass/Vol]193 mg/hBGkou18-675ErtdzOhio Valley Surgical Hospital Comment on above:Result Comment: NORMAL <100 mg/dL PREDIABETES 101-126 mg/dL DIABETES 126 mg/dL or higherPerformed By: #### HEMOG, CMPF, LIP2, RTSH, T42 #### Testing performed at [address] [address]Motvgctii [Moles/Vol]5.4 mmol/LHigh3.5-5.1ARegency Hospital [facility] East Comment on above:Performed By: #### HEMOG, CMPF, LIP2, RTSH, T42 #### Testing performed at [address] [address]Qqglmnb [Mass/Vol]7.4 g/dLNormal6.3-8.2ARegency Hospital [facility] East Comment on above:Performed By: #### HEMOG, CMPF, LIP2, RTSH, T42 #### Testing performed at [address] [address]Gsnnkf [Moles/Vol]140 mmol/RUdmezk124-675SlomuOhio Valley Surgical Hospital Comment on above:Performed By: #### HEMOG, CMPF, LIP2, RTSH, T42 #### Testing performed at [address] [address]Dxdr nitrogen [Mass/Vol]19 mg/dLNormal7-20[facility] Comment on above:Performed By: #### HEMOG, CMPF, LIP2, RTSH, T42 #### Testing performed at [address] [address]UNHZ T4on 71-70-6940Modi T4 [Mass/Vol]1.01 ng/dLNormal0.78-2.19 [facility] HospitalComment on above:Result Comment: Testing performed at [place], [place] [address]Zvlzaegpe By: #### HEMOG, CMPF, LIP2, RTSH, T42 #### Testing performed at [address] [address]ROCELSJAJW A1Con 53-39-7608Qfmzlbw [Mass/Vol]232 mg/dLNormal [facility] HospitalComment on above:Result Comment: Testing performed at [place], [place] [address]Znifjszmd By: #### HA1CT #### Testing performed at [address] [address]StA7q (Bld) [Mass fraction]9.7 %High0-[address] [place] [address] Comment on above:Result Comment: NORMAL <5.7% PREDIABETES 5.7-6.4% DIABETES 6.5% OR HIGHERPerformed By: #### HA1CT #### Testing performed at [address] [address]QXNKX PROFILEon 88-16-2743Puksvelkeib [Mass/Vol]232 mg/dLHigh 107-217[facility] Surgical HospitalComment on above:Performed By: #### HEMOG, CMPF, LIP2, RTSH, T42 #### Testing performed at [address] [address]Iootupsyfqd in HDL [Mass/Vol]51 mg/qYZtcswo21-66XbkuhOhio Valley Surgical HospitalComment on above:Performed By: #### HEMOG, CMPF, LIP2, RTSH, T42 #### Testing performed at [address] [address]Ordqpmybdfy in LDL [Mass/Vol]154 mg/dLNormalARegency Hospital Cleveland EastComment on above:Performed By: #### HEMOG, CMPF, LIP2, RTSH, T42 #### Testing performed at [address] [address]Ryyjmupqtvy in VLDL [Mass/Vol]27 mg/dLHigh5.0-25[facility] HospitalComment on above:Performed By: #### HEMOG, CMPF, LIP2, RTSH, T42 #### Testing performed at [address] [address]Kdvwybetejl.total/Cholesterol in HDL [Mass ratio]4.55 {ratio} NormalOhio Valley Surgical HospitalComment on above:Result Comment: RISK TOTAL/HDL RATIO MEN WOMEN 1/2 AVERAGE 3.43 3.27 AVERAGE 4.97 4.44 2X AVERAGE 9.55 7.05 3X AVERAGE 23.99 11.04 Testing performed at [place] [address]Performed By: #### HEMOG, CMPF, LIP2, RTSH, T42 #### Testing performed at [address] [address]Bcrquxikwvsl [Mass/Vol]133 mg/dLNormal0-150[facility] Comment on above:Performed By: #### HEMOG, CMPF, LIP2, RTSH, T42 #### Testing performed at [address] [address]OZSP/CREAT RATIO,URINEon 67-75-0088QDUD/CREAT RATIO,URINE30.9 mg MALB/g CREATHigh1.3-30.0[facility] HospitalComment on above:Result Comment: Testing performed at [place] [address]Performed By: #### MCRAT #### Testing performed at [address] [address]YKXHLQJOGULQ,RANDOM URINE23.6 mg/LHigh0-16.7ARegency Hospital Cleveland EastComment on above:Performed By: #### MCRAT #### Testing performed at [address] [address]WPHRO CREATININE ETDQZU47.3 MG/DLNormUNM [facility] Comment on above:Result Comment: NO NORMAL VALUES ESTABLISHED FOR RANDOM SPECIMENSPerformed By: #### MCRAT #### Testing performed at [address] [address]MUT,REFLEX FREE T4on [id number],REFLEX FREE T46.890 uIU/ML High0.46-4.68[facility] HospitalComment on above:Result Comment: Testing performed at [place] [id number] By: #### HEMOG, CMPF, LIP2, RTSH, T42 #### Testing performed at [address] [address]YDJ FASTINGon 1A:G RATIO1.2 RATIOLow1.3-2.2ARegency Hospital Cleveland EastComment on above:Performed By: #### HEMOG, CMPF, LIP2, RTSH, T42 #### Testing performed at [address] [address]JVPOXQL0.1 G/dlNormal3.5-5.0[facility] HospitalComment on above:Performed By: #### HEMOG, CMPF, LIP2, RTSH, T42 #### Testing performed at [address] [address]SLB [Catalytic activity/Vol]103 U/FUqhqmp43-833DuxmtOhio Valley Surgical HospitalComment on above:Performed By: #### HEMOG, CMPF, LIP2, RTSH, T42 #### Testing performed at [address] [address]WUF [Catalytic activity/Vol]15 U/LNormal<35[facility] Comment on above:Performed By: #### HEMOG, CMPF, LIP2, RTSH, T42 #### Testing performed at [address] [address]GRI [Catalytic activity/Vol]42 U/ORuqg93-90PldnrOhio Valley Surgical Hospital Comment on above:Performed By: #### HEMOG, CMPF, LIP2, RTSH, T42 #### Testing performed at [address] [address]Uszkzvcli [Mass/Vol]0.2 mg/dLNormal0.2-1.3ARegency Hospital [facility] East Comment on above:Performed By: #### HEMOG, CMPF, LIP2, RTSH, T42 #### Testing performed at [address] [address]Lxiwmku [Mass/Vol]9.3 mg/dLNormal8.4-10.2AReg[facility] Comment on above:Performed By: #### HEMOG, CMPF, LIP2, RTSH, T42 #### Testing performed at [address] [address]Rtwjotha [Moles/Vol]111 mmol/QXhmv57-337PawnuOhio Valley Surgical Hospital Comment on above:Result Comment: Please note: Triglyceride levels of 600mg/dL or higher may positively bias chlorideresults by approximately 2.1 mmolPerformed By: #### HEMOG, CMPF, LIP2, RTSH, T42 #### Testing performed at [address] [address]KC8 [Moles/Vol]17 mmol/LCritically fbt07-21SraywOhio Valley Surgical Hospital Comment on above:Result Comment: CALLED TO AND READ BACK BY DAVE CHATTERJEE AT 1115 ON 1Performed By: #### HEMOG, CMPF, LIP2, RTSH, T42 #### Testing performed at [address] [address]Bpaipvvags [Mass/Vol]1.10 mg/dLNormal0.7-1.2ARegency Hospital Cleveland EastComment on above:Performed By: #### HEMOG, CMPF, LIP2, RTSH, T42 #### Testing performed at [address] [address]BEE. GFR,>60NormalARegency Hospital Cleveland EastComment on above:Performed By: #### HEMOG, CMPF, LIP2, RTSH, T42 #### Testing performed at [address] [address]DSQ. GFR,Non Pgejgxwd27 ml/min/1.73sq.mNormalOhio Valley Surgical HospitalComment on above:Performed By: #### HEMOG, CMPF, LIP2, RTSH, T42 #### Testing performed at [address] [address]KNZ InformationAverage GFR for 50-59 years old = 93.NormalOhio Valley Surgical HospitalComment on above:Result Comment: Chronic Kidney disease, GFR = <60. Kidney failure, GFR = <15. The GFR estimate is not adjusted for extreme body surface area or acute process, nor has it been validated for women or ethnic groups other than and . Testing performed at [place] [address]Performed By: #### HEMOG, CMPF, LIP2, RTSH, T42 #### Testing performed at [address] [address]Zhimmlm [Mass/Vol]190 mg/bMQzfw89-669MvwwbOhio Valley Surgical Hospital Comment on above:Result Comment: NORMAL <100 mg/dL PREDIABETES 101-126 mg/dL DIABETES 126 mg/dL or higherPerformed By: #### HEMOG, CMPF, LIP2, RTSH, T42 #### Testing performed at [address] [address]Tgbdgltfz [Moles/Vol]3.7 mmol/LNormal3.5-5.1ARegency Hospital Cleveland EastComment on above:Performed By: #### HEMOG, CMPF, LIP2, RTSH, T42 #### Testing performed at [address] [address]Ejurejs [Mass/Vol]7.6 g/dLNormal6.3-8.2AReg[facility] Hospital [facility] Comment on above:Performed By: #### HEMOG, CMPF, LIP2, RTSH, T42 #### Testing performed at [address] [address]Ghogte [Moles/Vol]138 mmol/BLwjpys423-709IckmuOhio Valley Surgical Hospital Comment on above:Performed By: #### HEMOG, CMPF, LIP2, RTSH, T42 #### Testing performed at [address] [address]Mglk nitrogen [Mass/Vol]24 mg/dLHigh7-20[facility] Comment on above:Performed By: #### HEMOG, CMPF, LIP2, RTSH, T42 #### Testing performed at [address] [address]QRILXFIXPQ A1Con 20-84-9843Tgzrlxz [Mass/Vol]240 mg/dLNormal [facility] HospitalComment on above:Result Comment: Testing performed at [place], [place] [address]Dazbglxsj By: #### HEMOG, CMPF, LIP2, RTSH, T42 #### Testing performed at [address] [address]DcI1z (Bld) [Mass fraction]10.0 %High[address] Comment on above:Result Comment: NORMAL <5.7% PREDIABETES 5.7-6.4% DIABETES 6.5% OR HIGHERPerformed By: #### HEMOG, CMPF, LIP2, RTSH, T42 #### Testing performed at [address] [address]BCQIH PROFILEon 74-33-6803Tkgprzudjfu [Mass/Vol]228 mg/dLHigh 107-217[facility] HospitalComment on above:Performed By: #### HEMOG, CMPF, LIP2, RTSH, T42 #### Testing performed at [address] [address]Cmjtxbmyfmw in HDL [Mass/Vol]36 mg/kMQbnehe24-46SfcsdOhio Valley Surgical HospitalComment on above:Performed By: #### HEMOG, CMPF, LIP2, RTSH, T42 #### Testing performed at [address] [address]Vwzqydohfbb in LDL [Mass/Vol]161 mg/dLNormalARegency Hospital Cleveland EastComment on above:Performed By: #### HEMOG, CMPF, LIP2, RTSH, T42 #### Testing performed at [address] [address]Ltwdnxyjfyb in VLDL [Mass/Vol]31 mg/dLHigh5.0-25[facility] HospitalComment on above:Performed By: #### HEMOG, CMPF, LIP2, RTSH, T42 #### Testing performed at [address] [address]Ikuqffdkmms.total/Cholesterol in HDL [Mass ratio]6.33 {ratio} NormalOhio Valley Surgical HospitalComment on above:Result Comment: RISK TOTAL/HDL RATIO MEN WOMEN 1/2 AVERAGE 3.43 3.27 AVERAGE 4.97 4.44 2X AVERAGE 9.55 7.05 3X AVERAGE 23.99 11.04 Testing performed at [place] [address]Performed By: #### HEMOG, CMPF, LIP2, RTSH, T42 #### Testing performed at [address] [address]Dnpavpreycnv [Mass/Vol]157 mg/dLHigh0-150[facility] Comment on above:Performed By: #### HEMOG, CMPF, LIP2, RTSH, T42 #### Testing performed at [address] [address]RWXP/CREAT RATIO,URINEon 39-81-3613ANHN/CREAT RATIO,URINE18.8 mg MALB/g CREATNormal1.3-30.0[facility] HospitalComment on above:Result Comment: Testing performed at [place] [address]Performed By: #### MCRAT #### Testing performed at [address] [address]QLHKFIPFZYCX,RANDOM URINE9.3 mg/LNormal0-16.7ARegency Hospital Cleveland EastComment on above:Performed By: #### MCRAT #### Testing performed at [address] [address]VIKNU CREATININE RIGDLK22.4 MG/DLNormUNM [facility]oval [facility] Comment on above:Result Comment: NO NORMAL VALUES ESTABLISHED FOR RANDOM SPECIMENSPerformed By: #### MCRAT #### Testing performed at [address] [address]VH RIBS LT PA Boby 63-32-8089QC RIBS LT PA CHEXAMINATION: XR RIBS LT [...] Electronically authenticated by: LUIS ANDRES Date: 2020-01-27 13:26[facility] HospitalXR FINGER MIN 2 VIEWSon 51-38-8155VY FINGER MIN 2 VIEWS PROCEDURE: XR FINGER [...] Electronically authenticated by: LUIS ANDRES Date: 2019-12-22 10:13[facility] HospitalBLOOD UREA NITROGENon 22-90-7893Hqxt nitrogen [Mass/Vol]16 mg/dLNormal7-[facility] Medical CenterCREATININE,SERUMon 15-89-6224Oabyifcntd [Mass/Vol]Average GFR for 50-59 years old = 93.[facility] Comment on above:Result Comment: Chronic Kidney disease, GFR = <60. Kidney failure, GFR = <15. The GFR estimate is not adjusted for extreme body surface area or acute process, nor has it been validated for women or ethnic groups other than and .Creatinine [Mass/Vol]mg/dLNoBrecksville VA / Crille HospitalCreatinine [Mass/Vol]52 ml/min/1.73sq.[facility] Creatinine [Mass/Vol]1.14 mg/dLNormal0.7-1.2AWestern Plains Medical ComplexFAX REQUESTon 36-20-1805RLP [id number] VA / Crille HospitalBLOOD UREA NITROGENon 46-14-8744Mqwm nitrogen [Mass/Vol]23 mg/dLHigh7-20[facility] CREATININE,SERUMon 64-70-3328Azpoxidzcp [Mass/Vol]38 ml/min/1.73sq.mNormalPratt Regional Medical CenterCreatinine [Mass/Vol]47 ml/min/1.73sq.[facility] EastCreatinine [Mass/Vol]Average GFR for 50-59 years old = 93.[facility] HospitalComment on above:Result Comment: Chronic Kidney disease, GFR = <60. Kidney failure, GFR = <15. The GFR estimate is not adjusted for extreme body surface area or acute process, nor has it been validated for women or ethnic groups other than and .Creatinine [Mass/Vol]1.49 mg/dLHigh0.7-1.2AWestern Plains Medical ComplexFAX REQUESTon [id number] [id number] VA / Crille HospitalUS DUPLEX EXTREMITY DVT LEFTon 93-18-1293MH DUPLEX EXTREMITY DVT LEFT LEFT LOWER EXTREMITY [...] cm x 2.1 cm and may be reactive.NormalPratt Regional Medical CenterCulture,Bacterialon 19-60-8641Koazwlh,BacterialTest Name: Culture,Bacterial Site: LEFT FOOT Culture Status: [...] S <= 10 F Vancomycin S 1 FNSumma Health Wadsworth - Rittman Medical CenterComment on above: Performed By: #### CULT ####Unless otherwise noted, all testing performed by [facility] [facility].[place], [place] [phone]: [id number] Director: Skylar Niño M.D.Progress Noteon 77-79-8338EpgiaktProvidence Hospital [address] [facility] [place] [address] NAME MEG GEORGES [facility] [id number] 1965 DATE PROGRESS NOTE Meg is seen [...] to use it. MARK MARQUEZ 12/16/2017 11:25 [id number] T 12/16/2017 15:16 BJZ/MODL Electronically Signed By Pili Gilliam DPM on 17 Dec 2017 19:19:18 GMTNormal [facility] NorthCulture,Bacterialon 12-02-2017 Culture,BacterialTest Name: Culture,Bacterial Site: LEFT FOOT Culture Status: Final Culture Report: Normal Rob Gram Stain: No WBC's No Squamous Epithelial Cells No Organisms Seen Micro Source: Wound drainageNormalOKettering Health – Soin Medical Center Comment on above:Performed By: #### CULT ####Unless otherwise noted, all testing performed by [facility], [place] [phone]: [id number] Director: Skylar Niño M.D.MRI LOWER EXT JOINT W/O CONTon 66-04-0875SRN LOWER EXT JOINT W/O CONTFinal Report Accession No: [id number] Performed: Nov 25 2017 8:32AM Examination: [...] Physician: PILI NICHOLS M.D. Trans: n/a : cc:[facility] HospitalCulture,Bacterialon 11-03-2017 Culture,BacterialTest Name: Culture,Bacterial Site: LEFT FOOT [...] <= 1 F Trimeth/Sulfa S <= 20 FNSumma Health Wadsworth - Rittman Medical CenterComment on above:Performed By: #### CULT ####Unless otherwise noted, all testing performed by [facility] [employer] [facility] [place], [place] [phone]: [id number] Director: Skylar Niño M.D.Progress Noteon 23-51-1161KtsiifpProvidence Hospital [address] [facility] [place] [address] NAME MEG [facility] [id number] 1965 DATE 08/29/2017 PROGRESS NOTE Ms. Georges [...] [facility]. MARK MILLER 08/29/2017 18:22 [id number] T 08/30/2017 08:46 KM/[facility] Electronically Signed By Mark Anthony Mcdonald Dpm on 05 Sep 2017 23:32:42 [facility] CampusCulture,Bacterialon 08-14-2017 Culture,BacterialTest Name: Culture,Bacterial Site: Left 1st MPJ ulcer/ celluli Culture Status: Final Culture Report: No Growth - Day 2 Gram Stain: Rare WBC's Few RBC's No Organisms Seen Micro Source: WoundNormalOhioHOhio Valley HospitalComment on above:Performed By: #### CULT #### Unless otherwise noted, all testing performed by [facility] [address] [place], [place] [address] CLIA: [id number] Cloud Automation Tester: Skylar Niño M.D.Progress Noteon 51-41-7129Iecgtqc mass conc [facility] [address] [place] [address] NAME MEG [facility] [id number] 1965 DATE 06/13/2017 PROGRESS NOTE SUBJECTIVE Ms. [...] She related understanding. MARK MILLER 06/13/2017 10:44 [id number] T 06/13/2017 11:35 KMH/MODL Electronically Signed By Mark Anthony Mcdonald Dpm on 19 Jun 2017 14:55:04 TNormal [facility] NorthConsultationon 58-52-6139Ibzbsmehhjqv [facility] [address] [place] [address] NAME [facility]G [facility] [id number] 1965 DATE 04/11/2017 CONSULTATION COST CLERK MARTHA YAN DPM REFERRING PHYSICIAN: Neri Purcell DO CONSULT FOR WOUND CARE CLINIC Thank you, Dr. Purcell, for this consultation. SUBJECTIVE This patient is [...] any complications arise. MARK ELMORE 04/11/2017 16:16 [id number] T 04/11/2017 20:46 RCI/MODL cc: Neri Purcell, Electronically Signed By Martha Yan DPM on 16 Apr 2017 22:59:57 [facility] [address] [facility] [place] [address] NAME MEG [facility] [id number] 1965 DATE 06/06/2017 PROGRESS NOTE PROGRESS NOTE [...] arise. MARTHA YAN DPM D 06/06/2017 22:10 [id number] T 06/07/2017 08:57 RCI/MODL Electronically Signed By Martha Yan DPM on 10 Jun 2017 00:05:11 GMT [facility] with Diffon 06-04-2017 Basophils #/vol (Bld)0.0 K/mcLNormal0-0.2[facility] NorthComsheridan community hospital on above:Performed By: #### CBCDIF, CMET, EDCTNI #### Unless otherwise noted, all testing performed by [place] [id number] CLIA: [id number] Cloud Automation Tester: Skylar Niño M.D.Basophils/100 WBC (Bld)0.5 %[facility] Medical CenterComsheridan community hospital on above:Performed By: #### CBCDIF, CMET, EDCTNI #### Unless otherwise noted, all testing performed by [address] CLIA: [id number] Cloud Automation Tester: Skylar Niño M.D.Eosinophils #/vol (Bld)0.2 K/mcLNormal0-0.5 [facility] NorthComsheridan community hospital on above:Performed By: #### CBCDIF, CMET, EDCTNI #### Unless otherwise noted, all testing performed by [phone] CLIA: [id number] Cloud Automation Tester: Skylar Niño M.D.Eosinophils/100 WBC (Bld)2.5 %[facility] CenterComsheridan community hospital on above:Performed By: #### CBCDIF, CMET, EDCTNI #### Unless otherwise noted, [place] [address] CLIA: [id number] Cloud Automation Tester: Skylar Niño M.D.Erythrocyte distribution width Ratio (RBC) 13.3 %Rjacvc70-70.4[facility] NorthComment on above: Performed By: #### CBCDIF, CMET, EDCTNI #### Unless otherwise noted, all testing performed by [address] [address] CLIA: [id number] Cloud Automation Tester: Skylar Niño M.D.Hematocrit Volume Fraction (Bld)39.7 % Wjbxjs83.4-44.8[facility] NorthComment on above: Performed By: #### CBCDIF, CMET, EDCTNI #### Unless otherwise noted, all testing performed by [address] [address] CLIA: [id number] Cloud Automation Tester: Skylar Niño M.D.Hemoglobin mass conc (Bld)13.3 g/dLNormal 11.6-15.4[facility] NorthComment on above:Performed By: #### CBCDIF, CMET, EDCTNI #### Unless otherwise noted, all testing performed by [address] [address] CLIA: [id number] Cloud Automation Tester: Skylar Niño M.D.Lymphocytes #/vol (Bld)4.0 K/mcLHigh1.0-3.7 [facility] NorthComsheridan community hospital on above:Performed By: #### CBCDIF, CMET, EDCTNI #### Unless otherwise noted, all testing performed by [address] [address] CLIA: [id number] Cloud Automation Tester: Skylar Niño M.D.Lymphocytes/100 WBC (Bld)42.6 %Normal [facility] NorthComsheridan community hospital on above:Performed By: #### CBCDIF, CMET, EDCTNI #### Unless otherwise noted, [place] [address] CLIA: [id number] Cloud Automation Tester: Skylar Niño M.D.MCH Entitic mass (RBC)30.1 pgNormal 27.9-33.9[facility] NorthComment on above:Performed By: #### CBCDIF, CMET, EDCTNI #### Unless otherwise noted, [place] [address] CLIA: [id number] Cloud Automation Tester: Skylar Niño M.D.MCHC mass conc (RBC)33.6 g/dLNormal 33.1-35.1[facility] NorthComment on above:Performed By: #### CBCDIF, CMET, EDCTNI #### Unless otherwise noted, [place] [address] CLIA: [id number] Cloud Automation Tester: Skylar Niño M.D.MCV Entitic volume (RBC)89.7 fLNormal 82.6-98.9[facility] NorthComment on above:Performed By: #### CBCDIF, CMET, EDCTNI #### Unless otherwise noted, [place] [address] CLIA: [id number] Cloud Automation Tester: Skylar Niño M.D.Monocytes #/vol (Bld)0.6 K/mcLNormal0.1-0.6 [facility] NorthComsheridan community hospital on above:Performed By: #### CBCDIF, CMET, EDCTNI #### Unless otherwise noted, [place] [address] CLIA: [id number] Cloud Automation Tester: Skylar Niño M.D.Monocytes/100 WBC (Bld)5.9 %Normal [facility] NorthComsheridan community hospital on above:Performed By: #### CBCDIF, CMET, EDCTNI #### Unless otherwise noted, [place] [address] CLIA: [id number] Cloud Automation Tester: Skylar Niño M.D.Neutrophils #/vol (Bld)4.6 K/mcLNormal 1.2-6.9[facility] NorthComsheridan community hospital on above:Performed By: #### CBCDIF, CMET, EDCTNI #### Unless otherwise noted, [place] [address] CLIA: [id number] Cloud Automation Tester: Skylar Niño M.D.Platelet mean volume Entitic volume (Bld) 6.9 fLLow7.0-10.6[facility] NorthComsheridan community hospital on above: Performed By: #### CBCDIF, CMET, EDCTNI #### Unless otherwise noted, [place] [address] CLIA: [id number] Cloud Automation Tester: Skylar Niño M.D.Platelets #/vol (Bld)377 K/gcXIavfss653-343 [facility] on above:Performed By: #### CBCDIF, CMET, EDCTNI #### Unless otherwise noted, [place] [address] CLIA: [id number] Cloud Automation Tester: Skylar Niño M.D.RBC #/vol (Bld)4.42 M/mcLNormal3.7-5.0 [facility] NorthComsheridan community hospital on above:Performed By: #### CBCDIF, CMET, EDCTNI #### Unless otherwise noted, [place] [address] CLIA: [id number] Cloud Automation Tester: Skylar Niño M.D.Segmented Neut %48.5 %NormalOhSelect Medical Specialty Hospital - Boardman, IncComment on above:Performed By: #### CBCDIF, CMET, EDCTNI #### Unless otherwise noted, [place] [address] CLIA: [id number] Cloud Automation Tester: Skylar Niño M.D.WBC #/vol (Bld)9.5 K/mcLNormal3.4-10.6 [facility] NorthComment on above:Performed By: #### CBCDIF, CMET, EDCTNI #### Unless otherwise noted, [place] [address] CLIA: [id number] Cloud Automation Tester: Skylar Niño M.D.Comprehensive Metabolic Panelon 06-04-2017 Albumin mass conc3.8 g/dLNormal3.2-5.2[facility] Comment on above:Performed By: #### CBCDIF, CMET, EDCTNI #### Unless otherwise noted, [place] [address] CLIA: [id number] Cloud Automation Tester: Skylar Niño M.D.ALP enzyme act/xnr508 U/TXdzvhz81-198 [facility] NorthComment on above:Performed By: #### CBCDIF, CMET, EDCTNI #### Unless otherwise noted, [place] [address] CLIA: [id number] Cloud Automation Tester: Skylar Renay, M.D.ALT enzyme act/vol43 U/LJlrthq97-47 [facility] NorthComsheridan community hospital on above:Result Comment: This test result might be falsely depressed or falsely elevated on samples drawn from patients taking Sulfasalazine and Sulfapyridine. Venipuncture should occur prior to taking either of these drugs.Performed By: #### CBCDIF, CMET, EDCTNI #### Unless otherwise noted, [place] [address] CLIA: [id number] Cloud Automation Tester: Skylar Niño M.D.AST enzyme act/vol20 U/LNormal0-45 [facility] NorthComsheridan community hospital on above:Result Comment: This test result might be falsely depressed or falsely elevated on samples drawn from patients taking Sulfasalazine and Sulfapyridine. Venipuncture should occur prior to taking either of these drugs.Performed By: #### CBCDIF, CMET, EDCTNI #### Unless otherwise noted, [place] [address] CLIA: [id number] Cloud Automation Tester: Skylar Niño M.D.Bilirubin mass conc0.3 mg/dLNormal0.3-1.2 [facility] NorthComsheridan community hospital on above:Performed By: #### CBCDIF, CMET, EDCTNI #### Unless otherwise noted, [place] [address] CLIA: [id number] Cloud Automation Tester: Skylar Niño M.D.Calcium mass conc9.4 mg/dLNormal8.4-10.2 [facility] NorthComsheridan community hospital on above:Performed By: #### CBCDIF, CMET, EDCTNI #### Unless otherwise noted, [place] [address] CLIA: [id number] Cloud Automation Tester: Skylar Niño M.D.Chloride molar atua592 mmol/CUdddfu39-928 [facility] on above:Performed By: #### CBCDIF, CMET, EDCTNI #### Unless otherwise noted, all testing performed by [place] [id number] CLIA: [id number] Cloud Automation Tester: Skylar Niño M.D.CO2 molar conc26 mmol/NIosswy10-16 [facility] NorthComsheridan community hospital on above:Performed By: #### CBCDIF, CMET, EDCTNI #### Unless otherwise noted, [place] [address] CLIA: [id number] Cloud Automation Tester: Skylar Niño M.D.Creatinine mass conc1.10 mg/dLNormal 0.40-1.10[facility] on above:Performed By: #### CBCDIF, CMET, EDCTNI #### Unless otherwise noted, [place] [address] CLIA: [id number] Cloud Automation Tester: Skylar Niño M.D.GFR/1.73 sq M predicted among blacks MDRD vol rate/area (S/P/Bld)mL/min/{1.73_m2}NormalUC Medical Center on above:Result Comment: GFR CalcPerformed By: #### CBCDIF, CMET, EDCTNI #### Unless otherwise noted, [place] [address] CLIA: [id number] Cloud Automation Tester: Skylar Niño M.D.GFR/1.73 sq M predicted among non-blacks MDRD vol rate/area (S/P/Bld)52 mL/min/{1.73_m2}Low>60[facility] on above:Result Comment: Non- GFR Calc eGFR [...] Unless otherwise noted, [place] [address] CLIA: [id number] Cloud Automation Tester: Skylar Niño M.D.Glucose mass imus919 mg/pGFdvo48-10 [facility] on above:Result Comment: This test result might be falsely depressed or falsely elevated on samples drawn from patients taking Sulfasalazine and Sulfapyridine. Venipuncture should occur prior to taking either of these drugs.Performed By: #### CBCDIF, CMET, EDCTNI #### Unless otherwise noted, [place] [address] CLIA: [id number] [employer] Automation Tester: Skylar Niño M.D.Potassium molar conc4.2 mmol/LNormal3.5-5.1 [facility] on above:Performed By: #### CBCDIF, CMET, EDCTNI #### Unless otherwise noted, [place] [address] CLIA: [id number] Cloud Automation Tester: Skylar Niño M.D.Protein mass conc7.8 g/dLNormal6.0-8.0 [facility] on above:Performed By: #### CBCDIF, CMET, EDCTNI #### Unless otherwise noted, [place] [address] CLIA: [id number] Cloud Automation Tester: Skylar Niño M.D.Sodium molar mxhr713 mmol/SSnjzyq807-543 [facility] on above:Performed By: #### CBCDIF, CMET, EDCTNI #### Unless otherwise noted, [place] [address] CLIA: [id number] Cloud Automation Tester: Skylar Niño M.D.Urea nitrogen mass conc15 mg/dLNormal8-25 [facility] on above:Performed By: #### CBCDIF, CMET, EDCTNI #### Unless otherwise noted, [place] [address] CLIA: [id number] Cloud Automation Tester: Skylar Niño M.D.ED Cardiac Troponin-Ion 09-85-5823Svpkwbnb I.cardiac mass concng/mLNormal< 45OhSelect [facility] Comment on above:Result Comment: Elevation of troponin [...] Unless otherwise noted, [place] [address] CLIA: [id number] Cloud Automation Tester: Skylar Niño M.D.RIBS UNILATERALon 91-26-1728JKBV UNILATERAL Final Report Accession No: [id number] Performed: Jun 04 2017 9:56PM Examination: [...] Physician: IVETT TANNER M.D. Trans: istumb : cc:[facility] HospitalCulture,Bacterialon 04-22-2017 Culture,BacterialTest Name: Culture,Bacterial Site: LEFT ANKLE [...] <= 10 F Vancomycin S <= 0.5 FNSumma Health [facility] Rittman Medical CenterComment on above:Performed By: #### CULT #### Unless otherwise noted, all testing performed by [address] [place] [address] CLIA: [id number] Cloud Automation Tester: Skylar Niño M.D.Progress Noteon 63-53-4557K[address] [place] [address] NAME MEG GEORGES [facility] [id number] 1965 DATE PROGRESS NOTE Meg seen today [...] in a week. MARK MARQUEZ 04/22/2017 12:51 [id number] T 04/22/2017 16:19 BJZ/RICAL Electronically Signed By Pili Gilliam DPM on 23 Apr 2017 17:35:14 GMTNormal [facility]Culture,Bacterialon 04-18-2017 Culture,BacterialTest Name: Culture,Bacterial Site: left foot Culture Status: Final Gram Stain: Rare WBC's Rare Squamous Epithelial Cells Rare Gram Positive Cocci Micro Source: Wound drainage ORGANISM ID: 1 - Moderate STAPHYLOCOCCUS AUREUS ANTIBIOTIC INTERPRETATION BECKY STATUS Clindamycin S 0.25 F Doxycycline S <= 0.5 F Erythromycin S <= 0.25 F Oxacillin S 0.5 F Trimeth/Sulfa S <= 10 F Vancomycin S 1 FNSumma Health Wadsworth - Rittman Medical CenterComment on above: Performed By: #### CULT #### Unless otherwise noted, all testing performed by [address] [address] CLIA: [id number] Cloud Automation Tester: Skylar Niño M.D. Vital Signs Date TimeVital SignValuePerforming QarowvqkuLqnxkabl06-21-4840 20:30-0400 Diastolic blood uscpgkkt78 mm[Hg]Anthony Lucero DO Work Phone: bon [facility]06-24-2022 20:30-0400Heart rate88 /minChristopher Hauger DO Work Phone: bon [facility]06-24-2022 20:30-0400 Respiratory rate18 /minChristopher Hauger DO Work Phone: bon [facility]06-24-2022 20:30-6029XiL0% (BldA) [Mass fraction]100 %Anthony Lucero DO Work Phone: bon [facility]06-24-2022 20:30-0400Systolic blood oowazsou673 mm[Hg]Anthony Lucero DO Work Phone: bon [employer]06-24-2022 18:00-0400Body mzaqjphslva440 [degF]Anthony Lucero DO Work Phone: VON [facility]06-24-2022 13:33-0400Body fgzwyi082.1 Denys Lucero DO Work Phone: RON [employer] [facility]ITALTe[facility] [employer] [employer] ([employer])KBGDFI38-84-5976 06:00-0400Body mass index (BMI) [Ratio]21.72 kg/v9Xkbgianznpebarron Lucero DO Work Phone: TON [employer]06-22-2022 06:00-0400Body qccxoa99.2 kgChbarron Lucero DO Work Phone: ZON [employer] [facility]ITALTe[facility] [employer] ([employer])BMFPCQ01-11-5951 14:00-0400Diastolic blood rotexnau95 mm[Hg]Anthony Villarreal MD Work Phone: BON [facility]05-28-2022 14:00-0400Heart ccnu814 /Hernandez Villarreal MD Work Phone: BON [facility]05-28-2022 14:00-0447UqK6% (BldA) [Mass fraction]94 %Anthony Villarreal MD Work Phone: BON [facility]05-28-2022 14:00-0400Systolic blood mm[Hg]Anthony Villarreal MD Work Phone: BON [employer]05-28-2022 11:15-0400 Respiratory rate16 /Hernandez Villarreal MD Work Phone: BON [facility]05-27-2022 20:37-0400Body werkhi142.1 Denys Villarreal MD Work Phone: BON [employer]05-27-2022 20:37-0400Body mass index (BMI) [Ratio]23.3 kg/t9UtrjlcrwqkjAnthony Villarreal MD Work Phone: BON [facility]05-27-2022 20:37-0400Body vjhnto32.5 kgChbarron Villarreal MD Work Phone: BON [facility]05-27-2022 20:20-0400Body jshiznvkbsu25.5 [degF]Anthony Villarreal MD Work Phone: BON [facility]05-24-2022 10:55-0400Body yzkaavbioje94.81 [degF]Wil Martinez MD Work Phone: [facility]-24-2022 10:55-0400Diastolic blood mm[Hg]Wil Martinez MD Work Phone: [facility]05-24-2022 10:55-0400Heart rate88 /Shellie Martinez MD Work Phone: [facility]05-24-2022 10:55-0400 Respiratory rate14 /minWil Martinez MD Work Phone: BM[facility]ETH [facility]05-24-2022 10:55-9781PfU9% (BldA) [Mass fraction]98 %Wil Martinez MD Work Phone: [facility]05-24-2022 10:55-0400Systolic blood fpvjylbk305 mm[Hg]Wil Martinez MD Work Phone: [phone] BETH [facility]05-24-2022 06:00-0400Body mass index (BMI) [Ratio]26.91 kg/v1JskjgqqieWil Martinez MD Work Phone: [facility]05-24-2022 06:00-0400Body gigxil78.35 kgWil Martinez MD Work Phone: [facility]05-19-2022 15:43-0400Body jhjkja383.1 cmAlexmelida Martinez MD Work Phone: [facility]05-12-2022 09:45-0400Diastolic blood mm[Hg]Chris Boothe MD Work Phone: 1(194)[address] [place], [place] 317[address]05-12-2022 09:45-0400Heart mzfo941 /min Chris Boothe MD Work Phone: 1(026)[address] [place], [place] 5667605-12-2022 09:45-0400Respiratory rate25 /minChris Boothe MD Work Phone: 1(766)[address] [place], [place] 5667605-12-2022 09:45-5446GpM3% (BldA) [Mass fraction]98 %Chris Boothe MD Work Phone: 1(114)[address] [place], [place] 5667605-12-2022 09:45-0400Systolic blood vsqoweol407 mm[Hg]Chris Boothe MD Work Phone: 1(687)[address] [place], [place] 5667605-12-2022 07:41-0400Body mass index (BMI) [Ratio]24.13 kg/m2Chris Boothe MD Work Phone: 1(267)[address] [place], [place] 5667605-12-2022 07:41-0400Body lhgoow74.77 kg Chris Boothe MD Work Phone: 1(634)[address] [place] [address]-12-2022 03:49-0400Body ndtxacseafu65.9 [degF]Chris Boothe MD Work Phone: 1(145)[address] [place], [place] 5667603-25-2022 15:31-0400Diastolic blood azbaqkfn20 mm[Hg][address]03-25-2022 15:31-0400 Heart rate84 /[address]03-25-2022 15:31-0400 Respiratory rate16 /min[address]03-25-2022 15:31-0400Systolic blood mm[Hg][address]03-25-2022 13:31-0400Body tyjameleyxs98.2 [degF][address]03-15-2022 14:36-0400Body mass index (BMI) [Ratio]25.81 kg/m2Tia Baugh PA-C Work Phone: 1(463) [phone]uizKwykas08-97-0597 14:36-0400Body crhbwoyduxx89.29 [degF]Tia Baugh PA-C Work Phone: 1(806) [phone]dgmHwqsqq12-34-7157 14:36-0400Body pqbgoc99.35 kgTia Baugh PA-C Work Phone: 1(420) [phone]-697530EasoLxldpd22-32-0754 14:36-0400Diastolic blood ibsnjamm73 mm[Hg]Tia Baugh PA-C Work Phone: 1(412) [phone]aoaCfrxne29-65-7870 14:36-0400Heart rate77 /minDean Valentin PA-C Work Phone: 1(322) [phone]-333612TetmYhwjjb34-25-1431 14:36-0400Respiratory rate16 /min Tia Baugh PA-C Work Phone: 1(772) [phone]-040929LdroUokdth37-09-4189 14:36-4294UwW3% (BldA) [Mass fraction]97 %Tia Baugh PA-C Work Phone: 1(134) [phone]-606762ZhwoFbwrbc81-98-4930 14:36-0400Systolic blood pressure 137 mm[Hg]Tia Baugh PA-C Work Phone: 1(615) [phone]-297490WgzjAhjrsy56-43-0750 11:06-0500Diastolic blood gplfqyov13 mm[Hg]Jef Sierra Jr., DPM Work Phone: 1(490) [phone]qgfMdvdho23-48-3476 11:06-0500Heart rate99 /min Jef Sierra Jr., DPM Work Phone: 1(566) [phone]63LnkcDhallx32-91-2144 11:06-0500Systolic blood pressure 123 mm[Hg]Jef Sierra Jr., DPM Work Phone: 1(496) [phone]45VsftQdfbdo24-14-6602 10:49-0500Body spruxkhusyb58.2 [degF]Jef Mariela Jr., DPM Work Phone: 1(288)[phone]rqhAaoivr59-49-2189 11:06-0500Body dtcqukemiap15.9 [degF]Jef Mariela Jr., DPM Work Phone: 1(580)[phone]qbuKcyrva36-12-7617 11:06-0500Diastolic blood astgikzy89 mm[Hg]Jef Mariela Jr., DPM Work Phone: 1(870)[phone]mduVpyymz58-62-5395 11:06-0500Heart rate89 /min Jef Mariela Jr., DPM Work Phone: 1(246)[phone]cytCgnwgm10-54-0025 11:06-0500Systolic blood pressure 146 mm[Hg]Jef Mariela Jr., DPM Work Phone: 1(257)[phone]kthGmsfxq41-56-7501 09:55-0500Diastolic blood tuzcxlii01 mm[Hg]Jef Mariela Jr., DPM Work Phone: 1(932)[phone]ncqNtlewu52-75-3505 09:55-0500Heart rate89 /min Jef Mariela Jr., DPM Work Phone: 1(735)[phone]acOvkoxq09-89-4425 09:55-0500Systolic blood pressure 154 mm[Hg]Jef Mariela Jr., DPM Work Phone: 1(237)[phone]ysnMsbsev44-70-7819 09:52-0500Body zzzkrofjepk45.59 [degF]Jef Mariela Jr., DPM Work Phone: 1(880)[phone]jjwAekxek84-58-1360 11:17-0500Body dsrfunifmso02.7 [degF]Jef Mariela Jr., DPM Work Phone: 1(830)[phone]nmgGbqolt75-68-8854 11:17-0500Diastolic blood czofklsq17 mm[Hg]Jef Mariela Jr., DPM Work Phone: 1(901)[phone]dbnGaqinh41-99-4768 11:17-0500Heart rate96 /min Jef Mariela Jr., DPM Work Phone: 1(899)[phone]uztCxauzs22-19-7102 11:17-0500Systolic blood pressure 157 mm[Hg]Jef Mariela Jr., DPM Work Phone: 1(073)[phone]ndvHayoty54-22-4015 10:31-0500Body cjjyymuypvg00.4 [degF]Jef Mariela Jr., DPM Work Phone: 1(400)[phone]xjuKlwprq04-43-7466 10:31-0500Diastolic blood mm[Hg]Jef Mariela Jr., DPM Work Phone: 1(195)[phone]682LdfnWvcgvh03-10-2034 10:31-0500Heart rate98 /min Jef Mariela Jr., DPM Work Phone: 1(425)[phone]101QrczJwoedn16-04-8948 10:31-0500Systolic blood pressure 156 mm[Hg]Jef Mariela Jr., DPM Work Phone: 1(075)[phone]artNaerdh47-25-9437 15:58-0500Body xikyzzabvbm70.7 [degF]Jef Mariela Jr., DPM Work Phone: 1(615)[phone]dpwBenlet11-05-8720 15:58-0500Diastolic blood lrhhwlab37 mm[Hg]Jef Mariela Jr., DPM Work Phone: 1(191)[phone]yppXwxppp16-18-1852 15:58-0500Heart hjjf241 /min Jef Mariela Jr., DPM Work Phone: 1(554)[phone]moeQzcpeo58-21-9354 15:58-0500Systolic blood pressure 163 mm[Hg]Jef Mariela Jr., DPM Work Phone: 1(300)[phone]wvjJxfobf09-53-4316 10:58-0500Body gvgukohxmcn91.7 [degF]Jef Mariela Jr., DPM Work Phone: 1(822)[phone]jcuXmjivw34-80-2635 10:58-0500Diastolic blood ikefhtac57 mm[Hg]Jef Mariela Jr., DPM Work Phone: 1(928)[phone]xwjTfepfp81-36-7058 10:58-0500Heart grqs643 /min Jef Amriela Jr., DPM Work Phone: 1(285)[phone]zpeQwizms80-59-1603 10:58-0500Systolic blood pressure 143 mm[Hg]Jef Mariela Jr., DPM Work Phone: 1(679)[phone]676LdkiBmtaim65-19-0420 08:43-0500Body uolufzexqlw98.2 [degF]Jef Mariela Jr., DPM Work Phone: 1(075)[phone]nrbQcktid16-89-5347 08:43-0500Diastolic blood mhnnepbu97 mm[Hg]Jef Mariela Jr., DPM Work Phone: 1(405)912-941-8534GaimAsrvks06-294024BkbuQeuhds41-79-2658 08:43-0500Heart rate99 /min Jef Mariela Jr., DPM Work Phone: 1(710)[phone]732KzzoBddbom13-34-3025 08:43-0500Systolic blood pressure 156 mm[Hg]Jef Mariela Jr., DPM Work Phone: 1(778)[phone]pnyYxcwjq96-79-6922 09:09-0500Body .7 [degF]Jef Mariela Jr., DPM Work Phone: 1(766)[phone]hdvBjrbnb68-41-5536 09:09-0500Diastolic blood ponevkjy31 mm[Hg]Jef Mariela Jr., DPM Work Phone: 1(475)[phone]jasAdjeob03-92-8500 09:09-0500Heart rate83 /min Jef Mariela Jr., DPM Work Phone: 1(504)[phone]ammUarmby29-81-3561 09:09-0500Systolic blood pressure 149 mm[Hg]Jef Mariela Jr., DPM Work Phone: 1(192)[phone]535JudkJktobm38-42-5096 11:17-0400Body .1 cm Jef Sierra Jr., DPM Work Phone: 1(902)[phone]cegOvcoxk05-51-2442 11:17-0400Body mass index (BMI) [Ratio]25.46 kg/w9VjvotzjiJef Sierra Jr., DPM Work Phone: 1(828)[phone]830IlcbElpwgd20-97-9375 11:17-0400Body qwfbkenopfn22.2 [degF]Jef Velasquezn Jr., DPM Work Phone: 1(343)[phone]omaJyrkhz49-13-6220 11:17-0400Body mrrzzi15.4 kg Jef Sierra Jr., DPM Work Phone: 1(946)[phone]ekiKjtdlb60-52-6054 11:17-0400Diastolic blood yjikwckd83 mm[Hg]Jef Sierra Jr., DPM Work Phone: 1(396)[phone]bfnHpzbdi67-99-8713 11:17-0400Heart uplz972 /min Jef Sierra Jr., DPM Work Phone: 1(070)[phone]zzdBdwiow18-24-1082 11:17-0400Systolic blood pressure 144 mm[Hg]Jef Sierra Jr., DPM Work Phone: 1(455)[phone]vkmVmxcat31-81-4540 08:11-0400Body bitdag705.7 cm Jef Sierra Jr., DPM Work Phone: 1(076)[phone]mcxEbmhge67-55-6316 08:11-0400Body mass index (BMI) [Ratio]29.39 kg/b0HinfdwfaJef Sierra Jr., DPM Work Phone: 1(702)[phone]827EyrxEkbpvx94-49-8825 08:11-0400Body ekdksrwwgjc95.2 [degF]Jef Sierra Jr., DPM Work Phone: 1(832)061-469-5428JaokStbbye38-622318XkrlYypttl36-70-0811 08:11-0400Body angnkt75.4 kg Jef Sierra Jr., DPM Work Phone: 1(164)710-288-8809XcksMqgplc34-884630FeifLhssny32-31-8479 08:11-0400Diastolic blood userfnhz75 mm[Hg]Jef Sierra Jr., DPM Work Phone: 1(998)[phone]qmnCedgam29-99-1653 08:11-0400Heart rate82 /min Jef Sierra Jr., DPM Work Phone: 1(550)[phone]032JbhaYuzkcr42-22-4563 08:11-0400Systolic blood pressure 133 mm[Hg]Jef Sierra Jr., DPM Work Phone: 1(519)334784-7249WuurAddeme70-674785VzasNgdrzw07-43-7882 11:22-0400Diastolic blood ocetotgl32 mm[Hg][address]08-17-2021 11:22-0400 Heart rate84 /[address]08-17-2021 11:22-0400 Respiratory rate16 /[address]08-17-2021 11:22-0400Systolic blood iglgcgob823 mm[Hg][address]08-17-2021 09:15-0400Body rwvzessraem51.9 [degF][address]08-10-2021 11:50-0400Body .1 cmFranck Mtz MD Work Phone: [facility]08-10-2021 11:50-0400Body mass index (BMI) [Ratio]25.96 kg/l7QayvajFranck Mtz MD Work Phone: [facility]08-10-2021 11:50-0400Body pifkdv41.76 kgFranck Mtz MD Work Phone: [facility]08-10-2021 11:50-0400 Diastolic blood gxwptogi98 mm[Hg]Franck Mtz MD Work Phone: [facility]08-10-2021 11:50-0400Heart itzq289 /minJojon Mtz MD Work Phone: [facility]08-10-2021 11:50-0400Systolic blood yonrvijp522 mm[Hg]Franck Mtz MD Work Phone: [facility]08-05-2021 13:31-0400 Diastolic blood vpcvbijj49 mm[Hg][address] 09-21-2020 13:31-0400Heart rate89 /[address] 09-21-2020 13:31-0400Respiratory rate16 /[address]08-05-2021 13:31-0400Systolic blood ddhajuuf894 mm[Hg][address]08-05-2021 11:36-0400Body zlmhfopysxs75.9 [degF][address]07-29-2021 14:39-0400Body itrzkdsnxge53.39 [degF]Jef Sierra Jr., DPM Work Phone: 1(144)[phone]hbiRqvfqy03-72-2583 14:39-0400Diastolic blood hxokifzx07 mm[Hg]Jef Sierra Jr., DPM Work Phone: 1(212)[phone]mprPtankz27-89-1156 14:39-0400Heart rate98 /min Jef Sierra Jr., DPM Work Phone: 1(671) 737-6987395-2802BvijXvnvef69-239406QgvqWlrarz81-80-2501 14:39-0400Systolic blood pressure 145 mm[Hg]Jef Sierra Jr., DPM Work Phone: 1(146) [phone]8-985543SccsDykklx27-08-2534 09:34-0400Body wwupxw021.1 [facility]aur MD [facility]-28-20[facility] 09:34-0400Body mass index (BMI) [Ratio]25.66 kg/m2Luis Miguel Kaur MD Work Phone: [facility]07-28-2021 09:34-0400Body weight 69.94 kgLuis Miguel Kaur MD Work Phone: 1(906)722-[address] [place], [place] [address]2807-28-2021 09:34-0400Diastolic blood qbrurvlb62 mm[Hg]Luis Miguel Kaur MD Work Phone: 1(998)691-[address] [place], [place] 5462807-28-2021 09:34-0400Heart rate89 /minLuis Miguel Kaur MD Work Phone: 1(411)213-[address] [place], [place] 5462807-28-2021 09:34-0400Systolic blood zmkzywbd549 mm[Hg]Luis Miguel [facility]aur MD Work [facility]: [facility]03-02-2021 08:16-0500Body height 153.7 cmJef Sierra Jr., DPM Work Phone: 1(663) [phone]-862784IrjrXqztje24-56-6753 08:16-0500Body mass index (BMI) [Ratio]29.39 kg/y1NaokxoakJef Sierra Jr., DPM Work Phone: 1(470) [phone]-499502PsbgVxrplk10-46-8589 08:16-0500Body .4 kg Jef Sierra Jr., DPM Work Phone: 1(635)[phone]zgmCiegmy10-45-2215 08:16-0500Diastolic blood ggwacrkw37 mm[Hg]Jef Sierra Jr., DPM Work Phone: 1(625) [phone]2-277981LneeLnnebx61-02-9865 08:16-0500Systolic blood pressure 136 mm[Hg]Jef Sierra Jr., DPM Work Phone: 1(828) [phone]-220007AbuaCssgpz33-57-2019 09:31-0400BMI (Body Mass Index) 25.29 kg/p3MymmkudJonathan OlmosIvhufbYxobBqzeiv85-34-7170 09:31-0400Body Amhfsedghbn81.4 [degF]Jonathan EdbsbqMharTnbiws05-95-2479 09:31-0400BP Prrupovpy19 mm[Hg]Jonathan UlkgwsZgkfPcecva35-85-4302 09:31-0400BP Zdjfnljd919 mm[Hg]Jonathan Jax EdqfLfboed71-75-2465 09:4014Mtjohd222.1 cmbessy FcdmkjSqciJzrxlb21-75-3419 09:0Pulse (Heart Rate)102 /[place] AxhdqdHpjkUmxtpn71-51-0849 09:310400Pulse Victyhsq604 %Jonathan EdwnmqNkxhPutvhb64-58-5483 09:31-0400 Respiratory Rate16 /[place] [address]-12-2019 09:4278Exguqa38.95 kgdanielCleveland Clinic Mercy HospitalSwylpwUktmWpaghg24-76-7521 14:05-0500BMI (Body Mass Index)25.07 kg/m2 [facility] Work Phone: 1(628) 733-116411-15-2018 14:05-0500BP Arbiguqsc60 mm[Hg][facility] Work Phone: 1(875) 642-563511-15-2018 14:05-0500BP Kdbghryy881 mm[Hg][facility] Work Phone: 1(397) 478-145711-15-2018 14:05-7326Ngmaff790.4 [facility] Work Phone: 1(617) 367-909911-15-2018 14:05-0500Pulse (Heart Rate)108 /[facility] Work Phone: 1(908) 945-970611-15-2018 14:05-9500Jcwuhy24.4 kgA[facility]man [facility] Work Phone: 1(110) 428-918602-19-2018 12:24-0500BP Djldyfdyx84 mm[Hg]Reji Miramontes IspnEermwg65-26-8158 12:24-0500BP Bxeluyic629 mm[Hg]WCarrol [facility] 04-[facility] 12:240500Pulse (Heart Rate)98 /minW. VtqdhwQyceHxkmxo71-47-7976 12:-0500BMI (Body Mass Index)26.49 kg/m2W. MvocvcPswoSklmdk55-47-6857 12:22-2941Bakrja809.1 cmW. MqlulaSyyoPtayak76-96-0999 12:-0500Respiratory Rate 16 /minW. AwplecAcyyPepjpt48-17-3018 12:[address] [facility] Encounters Encounter DateEncounter TypeCare ProviderFacilityStart: 12-13-2024 End: 30-62-0531NkcrrlDzmoucx Mariam [facility] MedinceComment on above: Gastroesophageal reflux disease without esophagitis (Primary Dx); Cough, unspecified type; Acquired hypothyroidismStart: 12-07-2024 End: 29-02-4686Bjwuujtlx encounterJay Chávez NP Work Phone: [facility] MedinceStart: 11-30-2024 End: 61-38-1585Bwvnbnily encounterJay Chávez GRINDING SUPERVISOR Work Phone: [facility] MedinceStart: 11-23-2024 End: 38-23-0763Sdmyovhzz encounterMahin Bernal MD Work Phone: [facility] MedinceStart: 11-22-2024 End: 24-80-3102Dyxgfioox encounterJay Chávez GRINDING SUPERVISOR Work Phone: [facility] MedinceStart: 09-27-2024 End: 17-16-9816Urlscf Gomez Whitfield DO Work Phone: [facility] EyeStart: 09-27-2024 End: 59-50-7518Ghptec flowsGerman Whitfield DO Work Phone: [facility] EyeStart: 09-27-2024 End: 24-70-3540tpwgibbafvQUSUZSCPJudith Londono AvailableStart: 08-27-2024 End: 15-43-2681Naibbl [facility] Work Phone: [facility] DERMStart: 08-27-2024 End: 86-61-4825Xgcsev [facility] Work Phone: [facility] DERMStart: 08-27-2024 End: 18-19-9576[facility] Work Phone: noms External Department UnsolicitedStart: 08-27-2024 End: 77-62-9377Yennbq outpatient visit 25 [facility] Work Phone: noms S[facility] DERMComment on above:Other atopic dermatitis (Primary Dx); Traumatic ulcer of left foot, unspecified ulcer stage (HCC); ImpetigoStart: 08-27-2024 End: 03-63-3449sxqwfccyfrNQQAN NORTHEIMNot AvailableStart: 08-10-2024 End: 41-02-6235Obgakkxxb Result EncounterGeneric External Data ProviderNOMS External Department UnsolicitedStart: 08-10-2024 End: 37-70-6815Ljkondssf Result EncounterGeneric External Data ProviderNOMS External Department UnsolicitedStart: 06-28-2024 End: 06-80-6887cieqkrvpkfXELWNNHGJudith Londono AvailableStart: 04-16-2024 End: 81-77-5769Cpqyqcvwx department patient visitJohn ParenteFacility:FTMCStart: 67-75-3110duinwxiqwaEizx L SchwabFacility:[facility] BellevueStart: 11-21-2023 End: 40-85-3801eibocedufnNtyz L SchwabFacility:[facility]vueStart: 10-24-2023 End: 53-60-8477zpsezmrhnqYvbd L SchwabFacility:[facility]vueStart: 10-10-2023 ambulatoryJodi SchwabFacility:[facility]vueStart: 05-27-2023 End: 09-01-6936sclplwvhexDYKT ALAHMADFacility:FTMCStart: 50-73-0857Vpylmlgjq Result EncounterRufus Perez MD Work Phone: noms External Department UnsolicitedStart: 03-29-2023 Clinisync Result EncounterRufus Perez MD Work Phone: noms External Department UnsolicitedStart: 11-22-2022 End: 46-62-8744iouzucsbnjCFHMPT E [facility] Limatart: 04-02-2022 End: 78-47-6638schdeedlwwLUV VAISHALIOhioHealth Van Wert Hospitaltart: 04-02-2022 End: 84-55-8205Rhobtzwsuj hospital visit by physicianStv [facility] RadiologyComment on above:S/P cervical spinal fusionStart: 12-04-2021 End: 58-52-0080Bxbnfedpvw hospital visit by physicianStv [facility] [address] [place] [address] RadiologyComment on above:Atlantoaxial instability; S/P cervical spinal fusionStart: 11-22-2021 End: 19-31-1793zbfewuyrfpMsaiht BerryFacility:[facility] Start: 11-22-2021 End: 39-85-6037rzrkqnmshxTC Daniel Berry Work Phone: [facility] Work Phone: Start: 11-22-2021 End: 95-99-4439Mbavskxm ReferredII Rufus Perez Work Phone: [facility] CampusStart: 08-20-2021 End: 34-93-3662Avetksezut and management of inpatientDALUN TANGFacility:[facility] Start: 07-14-2021 End: 55-00-4317Yrwlnjtkuf and management of inpatientChbarron Lucero DO Work Phone: stvZ CAR 3Start: 07-13-2021 End: 52-16-0116Jwjogtmtk department patient visitAnthony Villarreal MD Work Phone: 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 EDComment on above:Non- intractable vomiting with nausea, unspecified vomiting type (Primary Dx); Altered mental status, unspecified altered mental status type; Leukocytosis, unspecified typeStart: 05-18-2021 End: 90-64-8647Lwvsbhpafa and management of inpatientAMBHarrison Community Hospitaltart: 05-18-2021 End: 82-13-1071Pyzjdmxcn department patient visitCHARPremier Health Start: 44-82-1824fdsuixfcglTZANRCZ P HOUSEFacility:[facility]tart: 76-40-3562hzmaqxwbfrXZXEGH MATURUFacility:[facility]tart: 05-11-2021 End: 62-27-9756ekfjbqgcpjYoieym Mmp-Nx2Tgzxbigd [facility] Start: 05-11-2021 End: 41-33-1928Kkckjdw encounter procedureSdwayne Weldon DO Work Phone: [facility] Outpatient CareComment on above: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) Start: 01-58-7424pgbhpcueafAFUABYV P HOUSEFacility:[facility]ENTERtart: 05-01-2021 End: 42-91-6610bywpoqybbyXISHIIPWashington Rural Health Collaborative Urgent CareStart: 05-01-2021 End: 20-08-8274Apsofy outpatient visit 15 minutesTia Baugh PA-C Work Phone: [facility] BucyrusComment on above:Partial thickness burn of single finger of right hand excluding thumb, initial encounter (Primary Dx); Wound infection; Laceration of right thumb, initial encounterStart: 93-57-1279nhijpdzdvhYIMWFBV P HOUSEFacility:[facility]ENTERtart: 04-17-2021 End: 79-91-6584txxnrsctfhJTKIYLXD DILLON JR.[facility] AmbulatoryStart: 04-17-2021 End: 39-89-2395Jvkjim outpatient visit 15 Magaly Sierra DPM Work Phone: [facility] PodiatryComment on above: 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) (Primary Dx)Start: 28-97-0062pkgilqsbtiNQHYMGC P HOUSEFacility:[facility]ENTERtart: 46-37-1666avsiejceihHZUOMXT P HOUSEFacility:[facility]tart: 04-06-2021 End: 78-86-6503Qoqxfpycmt and management of inpatientPCP PCP UNKNOWN~[id number] PHYSIC[facility] PHYSICIANMount [facility] Hospitaltart: 04-06-2021 End: 48-06-0599Fvgjwucpxu and management of inpatientSEAN SLIMANMount Duke Regional Hospitaltart: 80-24-1790bvebnlbvcbBFFZXPW P HOUSEFacility:[facility]ENTERtart: 03-27-2021 End: 08-51-1084bdctgnojlgQGYZKCWF DILLON JR.[facility] AmbulatoryStart: 03-27-2021 End: 00-61-3414Wdbraa outpatient visit 15 Magaly Sierra DPM Work Phone: [facility] PodiatryComment on above: 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) (Primary Dx)Start: 05-13-2535mtjwijcrwqWOTYTK BERGMANFacility:[facility]ENTERtart: 03-06-2021 End: 42-42-6680rkzwnfbtylPXQWSMHO DILLON JR.[facility] AmbulatoryStart: 60-86-8269jlizvrvwgyQHSLCWA P HOUSEFacility:[facility]ENTERtart: 02-21-2021 ambulatoryCHARLES P HOUSEFacility:[facility]ENTERtart: 02-20-2021 End: 14-73-6110lwvskiydgnCXGWOVHG DILLON JR.[facility] AmbulatoryStart: 02-20-2021 End: 29-30-1947Fgsdjtn encounter procedureJeremiah Mariela DPM Work Phone: [facility] PodiatryComment on above: 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)Start: 23-71-1854slelydgwboGIUOJIL P HOUSEFacility:[facility]ENTERtart: 02-14-2021 ambulatoryCHARLES P HOUSEFacility:[facility]ENTERtart: 26-17-4479tlwfyhtwoy NERI P HOUSEFacility:[facility]ENTERtart: 88-23-1761pmqwweodyeWBKEQRP P HOUSEFacility:[facility]ENTERtart: 2021 End: 15-68-7644ybvhzzfgiyHWDCNIOQ DILLON JR.[facility] AmbulatoryStart: 2021 End: 95-21-4270Vncmjmt encounter procedureJeremmichelle Velasquezn DPM Work Phone: [facility] PodiatryComment on above: Ulcer of left foot with fat layer exposed (HCC) (Primary Dx)Start: 01-30-2021 End: 31-14-3228coaiwkleclONEODNKJ DILLON JR.[facility] AmbulatoryStart: 01-30-2021 End: 68-35-9476Adlmzwh encounter procedureJekavon Velasquezn DPM Work Phone: [facility] PodiatryComment on above: Ulcer of left foot with fat layer exposed (HCC) (Primary Dx)Start: 01-24-2021 End: 76-29-1850heczajbcqeUZSGZUWC DILLON JR.[facility] AmbulatoryStart: 01-24-2021 End: 42-34-0835Kmkrype encounter procedureJeremmichelle Howelon DPM Work Phone: [facility] PodiatryComment on above: Ulcer of left foot with fat layer exposed (HCC) (Primary Dx)Start: 01-23-2021 ambulatoryCHAALVINO P HOUSEFacility:[facility]tart: 01-16-2021 End: 63-82-4365cbjddxnxneWOUTOZCK [facility]: 01[facility]16[facility]2021 End: 12-86-9046Hyfpdlf encounter procedureJef Sierra DPM Work Phone: [facility] PodiatryComment on above: 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) (Primary Dx)Start: 23-07-8529jvecbbtotgASZLCXG P HOUSEFacility:[facility]tart: 01-09-2021 End: 34-88-5150pxbtbewgkiOONGVHZD DILLON JR.[facility] CenterStart: 01-09-2021 End: 71-04-7290Vmtyvso encounter procedureJef Sierra DPM Work Phone: [facility] PodiatryComment on above: Ulcer of left foot with fat layer exposed (HCC) (Primary Dx)Start: 01-02-2021 End: 77-95-9879mhdogkadjuALTUAJLW [facility]ON JR.[facility] CenterStart: 01-02-2021 End: 63-86-1339Xxkffcs encounter procedureJef Sierra DPM Work Phone: [facility] PodiatryComment on above: Non-pressure chronic ulcer of other part of left foot with fat layer exposed (HCC) (Primary Dx); Ulcer of left foot with fat layer exposed (HCC)Start: 58-21-4168vxyvnihbxb CHARLES P HOUSEFacility:[facility]ENTERtart: 37-57-9621afzhtgmpmjYPJDFCK P HOUSEFacility:[facility]ENTERtart: 98-33-5719efozwksdazJBZQTCNGT H DAVIDORF Facility:[facility]ENTERtart: 73-84-0507utljnpxaleQZCJ SELF Facility:[facility]tart: 12-19-2020 End: 58-46-4923ezamiewynbLHQQYZVN DILLON JR.[facility] AmbulatoryStart: 12-19-2020 End: 52-88-9254Vlkjjll encounter procedureJeremiah Mariela DPM Work Phone: [facility] PodiatryComment on above: Ulcer of left foot with fat layer exposed (HCC) (Primary Dx)Start: 12-13-2020 Everardo BUSBYFacility:[facility]ENTERtart: 53-10-8184zzmmrnqdly SH[facility] ARGUELLOIBERIA MEDICAL CENTERFacility:[facility]ENTERtart: 16-66-7480Rfasqy Only Jef Sierra DPM Work Phone: [facility] PodiatryStart: 12-05-2020 End: 59-50-7186xmleiabmhfFWGUQEJN DILLON JR.[facility] AmbulatoryStart: 11-16-2020 End: 85-73-9828dxrxeoitnsFJUIXKRP DILLON JR.[facility] AmbulatoryStart: 10-17-2020 End: 21-43-1688eszljhpzedIQUXQDGD DILLON JR.[facility] AmbulatoryStart: 10-17-2020 End: 66-26-4933Fsrknt outpatient visit 15 minutesJef Sierra DPM Work Phone: [facility] PodiatryComment on above: Chronic ulcer of great toe of left foot, unspecified ulcer stage (HCC) (Primary Dx)Start: 10-10-2020 End: 16-42-5469Nlqqku outpatient visit 25 Liz Matos MD Work Phone: [facility] HospitalComment on above: Primary open angle glaucoma (POAG) of right eye, severe stage (Primary Dx); Primary open angle glaucoma (POAG) of left eye, severe stage; Diabetic macular edema; PseudophakiaStart: 10-03-2020 End: 86-48-2258fkbtxsozwnHxxxcg Mmp-Ab8Lhwagotm [facility] Start: 10-03-2020 End: 68-58-4805Xcwfohv encounter procedureFranck Mtz MD Work Phone: [facility]fusion [facility] Outpatient CareComment on above: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) Start: 09-26-2020 End: 54-48-5258Tltdwlhtej hospital visit by physicianFranck Mtz MD Work Phone: Imaging [facility] Outpatient CareComment on above:ArrivedStart: 09-26-2020 End: 32-93-6839Ylbucp outpatient visit 25 minutesFranck Mtz MD Work Phone: Neurology [facility] Outpatient CareComment on above: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) Start: 09-21-2020 End: 19-65-4467modlkfhirbVojfyi Mmp-Wy4Wethrlvn [facility] Start: 09-21-2020 End: 68-36-6435Xpaxawp encounter procedureCharadrianna Purcell DO Work Phone: [facility]fusion [facility] Outpatient CareComment on above: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) Start: 09-14-2020 End: 80-37-8534norkwmbomhKDEAKUJD DILLON JRVan [facility] AmbulatoryStart: 09-14-2020 End: 55-16-4509Ywesqn outpatient visit 15 Mgaaly Sierra DPM Work Phone: [facility] PodiatryComment on above: Great toe pain, left (Primary Dx); Foot abscess, leftStart: 09-13-2020 End: 12-74-0202Jsimd Teodoro Sierra DPM Work Phone: [facility] PodiatryComment on above: Asthma, unspecified asthma severity, unspecified whether complicated, unspecified whether persistent; Chronic ulcer of great toe of left foot, unspecified ulcer stage ([facility]); Closed displaced fracture of first metatarsal bone [...] involvement without evidenceof necrosis (HCC)Start: 09-13-2020 End: 06-63-3894Fvnggq outpatient visit 25 minutesLuis Miguel Kaur MD Work Phone: [facility] EndocrinologyComment on above:Type 2 diabetes mellitus with diabetic polyneuropathy, with long-term current use of insulin (Primary Dx); Acquired hypothyroidismStart: 37-51-5426kwbpxgibmqDWVOGHDS DILLON JRVan [facility] AmbulatoryStart: 04-25-2020 End: 54-76-4722Kvuebg [facility]alsanchez Chamberlain Work Phone: [facility] Start: 02-17-2020 End: 68-90-9203Qpdsynqwkt hospital visit by physicianSr [facility] Start: 01-27-2020 End: 74-86-5022Uywivga encounter procedureCHARLES VIRGIN[place] BEACHFacility:Y3Vfvar: 12-22-2019 End: 60-05-9896Rqrclan encounter procedureCHARUTAH STATE HOSPITALFacility:F3Zttnd: 12-20-2019 End: 60-23-3819Pzqzxpzfj department patient visitCHARADRIANNA Serrano [facility]tart: 12-20-2019 End: 51-45-2005Alhxzwpax department patient visitGarsugey Lubin Work Phone: [facility] Emergency DepartmentComment on above:Avulsion of fingernail, initial encounter (Primary Dx)Start: 05-29-2018 End: 84-36-5734Ivuhoistg department patient visitDobessy Camara Work Phone: [facility] Emergency DepartmentComment on above:Cellulitis (Primary Dx)Start: 01-20-2018 End: 64-49-0265Ngdnmlm encounter procedureCrystal [facility] EndocrinologyComment on above:Type 2 diabetes mellitus without complication, with long-term current use of insulinStart: 01-06-2018 End: 75-50-9882Ccmmfoa encounterJoSt. [facility] RheumatologyComment on above:AppointmentStart: 01-05-2018 End: 20-60-8684Ipfegjx encounterNicSouthwest [facility] Center EndocrinologyComment on above:Type 2 diabetes mellitus without complication, with long-term current use of insulin (Primary Dx)Start: 01-01-2018 End: 10-57-3060Qaptip outpatient visit 25 minutesTodd Sallie Kaur Work Phone: [facility] EndocrinologyComment on above:Type 2 diabetes mellitus with diabetic polyneuropathy, without long-term current use of insulin (Primary Dx); Mixed hyperlipidemiaStart: 01-01-2018 End: 98-41-6749Vgazerx encounterHistorical ProviderNeurology Madie Velazquez Start: 47-96-1556Mkctqyt encounter Janelle GilliamFacility:[place] Start: 15-35-0587Pzdmuuw encounter Janelle Gonzalezcility:[place] Start: 11-25-2017 End: 56-85-2081Ntdsokh encounterPili Gilliam Work Phone: [facility]art: 54-94-3410Laxbygm encounter procedurePili Gonzalezcility:[place]Start: 08-22-2017 End: 19-86-8150Tzotkev encounter Jose Mcdonald Facility:[place]Start: 82-00-0267Xgxkvtu encounter procedureJackyernst Graves Union HospitalFacility:[place]Start: 38-62-8587Pzdlmns encounter procedureMartha YanFacility:[facility]: 06-04-2017 End: 74-99-3494Tidqhgheb department patient visitAriel Franklin Facility:[place]leyStbolt: 04-11-2017 End: 41-88-8894AqysgmsuexZdavhwh Courtney Inwood Work Phone: [facility]art: 47-68-8648Guqote/outpatient visit, new, level 3Bribhavik Gilliam Work Phone: [facility] Vascular PhysiciansStart: 03-28-2017 End: 17-13-6197DrbvfgsasdGxdvyAj Gilliam Work Phone: [facility]art: 03-14-2017 End: 89-59-1692NscirjgubtZixbr Joseph Zimmerman Work Phone: [facility] Procedures DateProcedureProcedure DetailPerforming ClinicianStart: 66-11-4400Boldkx field xm uni/bi w/interp extended examJojuliette Whitfield DO Work Phone: Start: 09-27-2024 End: 87-45-8383BhbyfSaint Joseph East&eval 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 estab ptPrimary open angle glaucoma (POAG) of both eyes, moderate stageSkylar Whitfield DO Work Phone: comment on above:Primary open angle glaucoma (POAG) of both eyes, moderate stage (Primary Dx); 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 mellitus (HCC); Left posterior capsular opacification; Dry eyesStart: 23-00-8483Zfk bact xcpt urine blood/stool aerobic isolFormerly [facility] Work Phone: Start: 05-13-2335YBGMHDFqoou Northeim PA Work Phone: Start: 10-18-2561JEAFTVLUB BLOOD PRESSUREGeneric External Data ProviderStart: 09-39-1664JL FOOT SAMANTHA MIN 3 VIEWSGeneric External Data ProviderStart: 50-87-5014Oicyxmiaqrcz ophthalmic imaging optic nerve Skylar Whitfield DO Work Phone: Start: 06-28-2024 End: 35-51-3042QjjwdSaint Joseph East&eval compre new pt 1/> vstPrimary open angle glaucoma (POAG) of both eyes, moderate stageSkylar Whitfield DO Work Phone: comment on above:Primary open angle glaucoma (POAG) of both eyes, moderate stage (Primary Dx); 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 mellitus (CMS/HCC); Left posterior capsular opacification; Dry eyesStart: 99-19-1248SGKE CBC W/ AUTO DIFFRufus Perez MD Work Phone: Start: 49-03-5133Ehsgk spine cervical 4 or 5 viewsAlisia Cevallos DO Work Phone: Start: 09-37-5079Qavkt spine cervical 2 or 3 views Alie Loza [employer] - POLYSOMNOGRAPHIC TECH Work Phone: Start: 28-64-8334Glfeoazk screenDALUN TANGComment on above:Performed By: #### [id number] #### [facility] [address] [place] [address], USAStart: 25-40-5010Qlmptmz blood reagent stripSjosué Padron MD Work Phone: Start: 08-10-2021 End: 64-54-8253Ogiup of magnesiumSwelida Vega MD Work Phone: Start: 45-05-2387LYIRX METABOLIC PANEL W/ REFLEX TO MG FOR LOW KSwathi Gary VIVEROS Work Phone: Start: 89-41-8740Bkbzhkr blood reagent stripSjosué Padron MD Work Phone: Start: 28-23-0300Lwbazxb blood reagent stripSjosué Padron MD Work Phone: Start: 08-09-2021 End: 12-04-9437Lmfipse blood reagent stripSjosué Padron MD Work Phone: Start: 29-92-6255Iyfxdic blood reagent stripSjosué Padron MD Work Phone: Start: 43-55-4646Rqjzltq blood reagent stripSjosué Padron MD Work Phone: Start: 80-79-6394Hlqxp count complete auto&auto difrntl wbcSrinivas Vito VIVEROS Work Phone: Start: 10-76-1463Lwnnkbq blood reagent stripSjosué Padron MD Work Phone: Start: 76-16-0700KOIPI METABOLIC PANEL W/ REFLEX TO MG FOR LOW KSwathi Gary VIVEROS Work Phone: Start: 08-13-9754Sjspvfg blood reagent stripSjosué Padron MD Work Phone: Start: 91-46-1110Yhsstye blood reagent stripSjosué Padron MD Work Phone: Start: 20-03-2731Szoepak blood reagent stripSjosué Padron MD Work Phone: Start: 63-26-6112Kkewr of thyroid stimulating hormone tshGuy Ochoa MD Work Phone: Start: 95-78-1443Bxvnd spine cervical 2 or 3 views Kam Loera [employer] - POLYS[employer]NOGRAPHIC TECH Work Phone: Start: 42-42-4779Vljfudj blood reagent stripSjosué Padron MD Work Phone: Start: 05-18-6376Pys routine ecg w/least 12 lds i&r Irais Moore MD Work Phone: Start: 32-03-3295Uxxhkob blood reagent stripSjosué Padron MD Work Phone: Start: 12-00-6234Tiljxms blood reagent stripSjosué Padron MD Work Phone: Start: 55-12-9553Oyxjslc blood reagent stripSjosué Padron MD Work Phone: Start: 92-27-2734Jlgwqcm blood reagent stripSjosué Padron MD Work Phone: Start: 14-59-5618Mxszpdn blood reagent stripSjosué Padron MD Work Phone: Start: 94-54-6268Bhhuggf blood reagent stripSjosué Padron MD Work Phone: Start: 74-50-2095Xemiaxt blood reagent stripSjosué Padron MD Work Phone: Start: 05-75-7727Jbtqnaw blood reagent stripSjosué Padron MD Work Phone: Start: 08-06-2021 End: 57-57-6951Npemqva blood reagent stripSjosué Padron MD Work Phone: Start: 41-08-2749MALVP METABOLIC PANEL W/ REFLEX TO MG FOR LOW LEEonasri Coyle MD Work Phone: Start: 08-06-2021 End: 83-98-2711Ffunx count complete auto&auto difrntl wbcSkylar Coyle MD Work Phone: Start: 98-79-5741Ppttcwi blood reagent stripSjosué Padron MD Work Phone: Start: 88-61-3978Dkscqah blood reagent stripSjosué Padron MD Work Phone: Start: 22-75-0836Oxszzay blood reagent stripSjosué Padron MD Work Phone: Start: 28-47-6320JQAFWWZT BLOOD GAS, POCJeff Willoughby MD Work Phone: Start: 08-05-2021 End: 40-53-8623Aklwv of magnesiumSkylar Coyle MD Work Phone: Start: 53-56-9954UHGXR METABOLIC PANEL W/ REFLEX TO MG FOR LOW Geovanna Coyle MD Work Phone: Start: 38-50-9036Uipthdq blood reagent stripJeff Willoughby MD Work Phone: Start: 52-65-9130Rselzmx blood reagent stripJeff Willoughby MD Work Phone: Start: 92-31-1068Iujbweb blood reagent stripJeff Willoughby MD Work Phone: Start: 76-84-3887Miqfujq blood reagent stripJeff Willoughby MD Work Phone: Start: 57-78-8974Osmag of lipaseJojuliette Coyle MD Work Phone: Start: 53-52-4650KMXCE METABOLIC PANEL W/ REFLEX TO MG FOR LOW KJonasri Sallie Coyle MD Work Phone: Start: 70-29-8046Opvdrpq blood reagent Carley Willoughby MD Work Phone: Start: 22-21-9159Gnygbrd blood reagent Carley Willoughby MD Work Phone: Start: 62-32-8220Nlxvouj blood reagent Carley Willoughby MD Work Phone: Start: 71-09-4179Gdxuchi blood reagent Carley Willoughby MD Work Phone: Start: 07-63-7290Azxugib blood reagent Carley Willoughby MD Work Phone: Start: 33-33-3483KIAVB METABOLIC PANEL W/ REFLEX TO MG FOR LOW Cassiusbhavik Coyle MD Work Phone: Start: 97-53-1067AKGFHMZS BLOOD GAS, POCJeff Willoughby MD Work Phone: Start: 08-03-2021 End: 68-10-8491Ntnq bld gluc mntr dev cleared fda spec home useJeff Willoughby MD Work Phone: Start: 83-01-2027Jonbqel blood reagent Carley Willoughby MD Work Phone: Start: 85-63-2406Yvyytit blood reagent Carley Willoughby MD Work Phone: Start: 52-11-2280Ztpinmv blood reagent Carley Willoughby MD Work Phone: Start: 91-90-6958Qqwbics blood reagent Carley Willoughby MD Work Phone: Start: 02-48-3231Nuinzmq blood reagent Carley Willoughby MD Work Phone: Start: 23-35-5567Mjsxdqp blood reagent Carley Willoughby MD Work Phone: Start: 64-95-6356RRJHIOMT BLOOD GAS, POCJeff Willoughby MD Work Phone: Start: 08-02-2021 End: 14-22-2443Itlhf of Sandie Coyle MD Work Phone: Start: 84-83-6576ADILM METABOLIC PANEL W/ REFLEX TO MG FOR LOW KJonasri Coyle MD Work Phone: Start: 43-95-6004Jdtcdxh blood reagent Carley Willoughby MD Work Phone: Start: 74-02-9849Rvortzi blood reagent Carley Willoughby MD Work Phone: Start: 63-75-9970Ccxdahr blood reagent Carley Willoughby MD Work Phone: Start: 08-01-2021 End: 56-36-6608Trjps of Sandie Coyle MD Work Phone: Start: 41-97-3944RTIRH METABOLIC PANEL W/ REFLEX TO MG FOR LOW LEEonasri Coyle MD Work Phone: Start: 46-44-7388Oixywoz blood reagent Carley Willoughby MD Work Phone: Start: 12-57-8705Yoacf count hemoglobinSkylar Coyle MD Work Phone: Start: 23-40-3590Sbkdqaw blood reagent Carley Willoughby MD Work Phone: Start: 07-31-2021 End: 64-72-6093Vajojbx blood reagent Carley Willoughby MD Work Phone: Start: 07-31-2021 End: 52-04-9065Emtln of Sandie Coyle MD Work Phone: Start: 63-85-9193TMUQN METABOLIC PANEL W/ REFLEX TO MG FOR LOW Geovanna Coyle MD Work Phone: Start: 96-84-7729Qyqmhpa blood reagent stripJeff Willoughby MD Work Phone: Start: 07-30-2021 End: 75-51-8650Jmtkt count Radha Coyle MD Work Phone: Start: 26-13-0970Uxljtxm blood reagent stripJeff Willoughby MD Work Phone: Start: 08-45-3044Rnapzpmj screenChristopher Hauger DO Work Phone: Start: 07-30-2021 End: 85-27-1841URKFQHRMGIYLxtzbjux Erna Santiago MD Work Phone: Start: 07-63-9520MEEHP METABOLIC PANEL W/ REFLEX TO MG FOR LOW Geovanna Coyle MD Work Phone: Start: 10-04-4941Scaoe count complete auto&auto difrntl wbcSkylar oCyle MD Work Phone: Start: 97-00-6012KLLTNTEC BLOOD GAS, POCJeff Willoughby MD Work Phone: Start: 71-43-9157Rznzp count Lonnie Moore MD Work Phone: Start: 07-29-2021 End: 34-57-1141Gojfxvrvuty of packed red blood cellsTete Melgar MD Work Phone: Start: 92-14-1044Vqycx count Radha Coyle MD Work Phone: Start: 34-53-5959Ccdkedh blood reagent stripJeff Willoughby MD Work Phone: Start: 02-46-7847Cyebk typing serologic Wil Melgar MD Work Phone: Start: 28-05-5656Kpajtap blood reagent stripJeff Willoughby MD Work Phone: Start: 25-54-2208NUKSV METABOLIC PANEL W/ REFLEX TO MG FOR LOW Geovanna Coyle MD Work Phone: Start: 07-29-2021 End: 29-16-2472Zmfpj count complete auto&auto difrntl wbcSkylar Coyle MD Work Phone: Start: 83-74-2962MQRVLORI BLOOD GAS, Adonay Willoughby MD Work Phone: Start: 39-83-0882Eutsglq blood reagent Carley Willoughby MD Work Phone: Start: 07-28-2021 End: 30-21-1071Ftjakix Nannette Melgar MD Work Phone: Start: 75-68-9765Twckzfp blood reagent Carley Willoughby MD Work Phone: Start: 55-54-0156Trjunaw blood reagent Carley Willoughby MD Work Phone: Start: 37-02-4791URXEU METABOLIC PANEL W/ REFLEX TO MG FOR LOW Geovanna Coyle MD Work Phone: Start: 05-20-6191Lbemb count complete auto&auto difrntl wbcSkylar Coyle MD Work Phone: Start: 12-72-1221DQDEDUJJ BLOOD GAS, POCJeff Willoughby MD Work Phone: Start: 97-56-4368Trsv bld gluc mntr dev cleared fda spec home useJeff Willoughby MD Work Phone: Start: 07-27-2021 End: 52-88-2242Zuxzl count hemoglobinSkylar Coyle MD Work Phone: Start: 14-29-5067Blxbfbp blood reagent Carley Willoughby MD Work Phone: start: 66-44-0604Rsdwujz blood reagent stripJeff Willoughby MD Work Phone: Start: 07-27-2021 End: 75-72-7333Ndvgkrs Nannette Melgar MD Work Phone: Start: 49-05-5778CRVJN METABOLIC PANEL W/ REFLEX TO MG FOR LOW Geovanna Coyle MD Work Phone: Start: 98-81-5182Ycpgi count complete auto&auto difrntl wbcSkylar Coyle MD Work Phone: Start: 06-06-9624PBVUKXPD BLOOD GAS, POCJeff Willoughby MD Work Phone: Start: 07-27-2021 End: 62-39-3574Xpuv bld gluc mntr dev cleared fda spec home useJeff Willoughby MD Work Phone: Start: 09-04-1710Hvkqwpr blood reagent stripJeff Willoughby MD Work Phone: Start: 84-63-4636Wnmcvlv blood reagent stripJeff Willoughby MD Work Phone: Start: 78-82-8312Ltlyn count hemoglobinSkylar Coyle MD Work Phone: Start: 33-65-0536Nua spinal canal cervical w/o & w/contr Vaishali Page MD Work Phone: Start: 83-23-6449Aopiwsl blood reagent stripJeff Willoughby MD Work Phone: Start: 20-49-8010Unfqibhozt exam chest single view Missy Moore MD Work Phone: Start: 69-02-3314Qczwozj blood reagent stripJeff Willoughby MD Work Phone: Start: 90-26-1475ZKATZXCOIPXqfusfqt M Grischkan MD Work Phone: Start: 84-76-0243Xqofuuz blood reagent stripJeff Willoughby MD Work Phone: Start: 07-26-2021 End: 45-66-5659Apzic of magnesiumJohnny Robledo MD Work Phone: Start: 22-99-1789KKUYQ METABOLIC PANEL W/ REFLEX TO MG FOR LOW LEEonasri Coyle MD Work Phone: Start: 98-65-4265VLBYDFSD BLOOD GAS, POCJeff Willoughby MD Work Phone: Start: 34-42-0804Ulvuh count hemoglobinMissy Moore MD Work Phone: Start: 07-25-2021 End: 79-52-6254Onaww of lactateStephanie Stacy DO Work Phone: Start: 11-93-7420RGM REPORTEduardo Stas Hamm MD Work Phone: Start: 07-25-2021 End: 45-11-4505Azqnt count hemoglobinMissy Moore MD Work Phone: Start: 11-29-1247Jm angio abd&plvis cntrst mtrl w/wo cntrst Jannette Grove MD Work Phone: Start: 67-67-2619Jq cervical spine w/o contrast materialAndrea Jemal Prado [employer]OR[employer] TEAM MARKETING INTERN - GRINDING SUPERVISOR Work Phone: Start: 07-25-2021 End: 51-48-0270Sdgelljaipi of packed red blood cellsKeri Hart MD Work Phone: Start: 19-35-0351Snzqbonsmq exam abdomen 1 viewKeri Hart MD Work Phone: Start: 07-25-2021 End: 80-09-7953Wiian count hemoglobinMissy Moore MD Work Phone: Start: 85-29-4955Cvanimqfoydxnewiablq w/rec awake&drowsyKakirk Sunshine [employer]ORTS TEAM MARKETING INTERN - POLYSOMNOGRAPHIC TECH Work Phone: Start: 07-25-2021 End: 86-88-5296Asnjmco ionizedManolo Caballero MD Work Phone: Start: 97-90-2897DHCCP METABOLIC PANEL W/ REFLEX TO MG FOR LOW Geovanna Coyle MD Work Phone: Start: 44-28-6008Xljsdfaq Kirti Grove MD Work Phone: Start: 63-88-4757PASMFBVG BLOOD GAS, Adonay Willoughby MD Work Phone: Start: 07-25-2021 End: 02-70-0167Yafa bld gluc mntr dev cleared fda spec home useJeff Willoughby MD Work Phone: Start: 07-24-2021 End: 95-19-2531Jwhpl count hemoglobinMissy Moore MD Work Phone: Start: 81-65-9284Cogwnwr blood reagent stripJeff Willoughby MD Work Phone: Start: 07-24-2021 End: 32-02-3191Hxgnb of lactateMissy Moore MD Work Phone: Start: 32-39-4404Sogyrji blood reagent Carley Willoughby MD Work Phone: Start: 07-24-2021 End: 35-50-8985Tbkwekkumzs of packed red blood cellsMissy Moore MD Work Phone: Start: 89-87-7513Xojnm centrifuge enhncd id imfluor stain eaJany Sallie Penny [employer]OR[employer] TEAM MARKETING INTERN - POLYSOMNOGRAPHIC TECH Work Phone: Start: 07-24-2021 End: 99-59-7483Wrzpm typing serologic aboMissy Moore MD Work Phone: Start: 55-28-9268AIBHSJDJ BLOOD GAS, Adonay Willoughby MD Work Phone: Start: 07-24-2021 End: 67-48-7020Ulkke of haptoglobin quantitativeMissy Moore MD Work Phone: Start: 69-39-9388Pojzisa function panelMissy Moore MD Work Phone: Start: 13-66-6385Flmti s aureus methicillin resist amp probe tqSeth Stokes MD Work Phone: Start: 44-84-3311Uiaabzaozd exam chest single view Vale Schmidt MD Work Phone: [phone]: 44-82-0653Pn head/brain w/o contrast material Vale Schmidt MD Work Phone: Start: 75-26-4618Wd thorax w/contrast materialChris Lassiter MD Work Phone: Start: 29-63-7659Geetleq blood reagent stripSilver Carmona MD Work Phone: Start: 87-67-4206Llhobifgwx exam chest single view Chris Lassiter MD Work Phone: Start: 08-41-0485WBKQQ METABOLIC PANEL W/ REFLEX TO MG FOR LOW Geovanna Coyle MD Work Phone: Start: 25-97-4106Ayybxlf blood reagent stripSilver Carmona MD Work Phone: Start: 65-39-2211Cwqrixi blood reagent Peggy Robledo MD Work Phone: Start: 08-35-6370Ezmhvxa blood reagent Peggy Robledo MD Work Phone: Start: 34-34-0801Jmyreju blood reagent Peggy Robledo MD Work Phone: Start: 42-92-0574QAUAK METABOLIC PANEL W/ REFLEX TO MG FOR LOW Geovanna Coyle MD Work Phone: Start: 79-69-6110Pbdiiyl blood reagent Peggy Robledo MD Work Phone: Start: 68-35-8447Htqapzc blood reagent Peggy Robledo MD Work Phone: Start: 99-72-3698Jlyrtxi blood reagent stripJohnny Robledo MD Work Phone: Start: 44-37-3395Ytkucrlggx exam chest single view Carlos Liu MD Work Phone: [phone]: 58-74-8846Lekmjnj blood reagent stripJohnny Robledo MD Work Phone: Start: 00-54-7940Vnbekxs bacterial blood aerobic w/id Leonela Robledo MD Work Phone: Start: 06-94-3520JKRYF METABOLIC PANEL W/ REFLEX TO MG FOR LOW Geovanna Coyle MD Work Phone: Start: 07-22-2021 End: 43-50-4299YBYZRND, SEPSISJohnny Robledo MD Work Phone: Start: 94-08-4424XOMPEEU, BLOOD 1Bcalvin Robledo MD Work Phone: Start: 95-49-9669Kqguits blood reagent stripJohnny Robledo MD Work Phone: Start: 34-56-2375Zyddepg blood reagent Peggy Robledo MD Work Phone: Start: 92-48-2852Mxanecn blood reagent Peggy Robledo MD Work Phone: Start: 66-82-6291HCWBT METABOLIC PANEL W/ REFLEX TO MG FOR LOW Geovanna Coyle MD Work Phone: Start: 07-21-2021 End: 89-31-5333Cguqg count complete automatedJohnny Robledo MD Work Phone: Start: 46-09-3359Hgrgkow blood reagent stripJohnny Robledo MD Work Phone: Start: 74-56-1026Yktsnvd blood reagent Peggy Robledo MD Work Phone: Start: 34-24-6214Mlkah of troponin Yonatan Schmidt MD Work Phone: Start: 07-20-2021 End: 53-32-8515Xfitc of troponin Yonatan Schmidt MD Work Phone: Start: 96-63-8543Sbpfqpm blood reagent stripJohnny Robledo MD Work Phone: Start: 64-45-7525Ljc routine ecg w/least 12 lds trcg only w/o i&rByary Castro MD Work Phone: Start: 82-27-4631Nhhjf of magnesiumJohnny Robledo MD Work Phone: Start: 68-80-2777KEBBS METABOLIC PANEL W/ REFLEX TO MG FOR LOW LEEonasri Coyle MD Work Phone: Start: 21-89-1490Onymyfehwh exam chest single view Deborah Castro MD Work Phone: Start: 12-88-9865Mrunrulnjt exam abdomen 1 viewDeborah Castro MD Work Phone: Start: 26-48-1239Qvelppq blood reagent stripJohnny Robledo MD Work Phone: Start: 87-38-5731Wzpidqv blood reagent Peggy Robledo MD Work Phone: Start: 13-54-1283Pogvusdozur Aguilar Robledo MD Work Phone: Start: 09-49-7094Lwkxfro blood reagent Peggy Robledo MD Work Phone: Start: 46-71-2152Rbcksidmtq exam abdomen 1 Gamaliel Robledo MD Work Phone: Start: 07-19-2021 End: 72-79-4891Banpcqaqgxh Aguilar Robledo MD Work Phone: Start: 17-88-1658DGVVS METABOLIC PANEL W/ REFLEX TO MG FOR LOW Geovanna Coyle MD Work Phone: Start: 07-18-2021 End: 96-13-9931Nncbgqlxfri Aguilar Robledo MD Work Phone: Start: 46-47-4330Juvqbjkpkb exam abdomen 1 viewJohnny Robledo MD Work Phone: Start: 47-98-7079Jgxcdiudau microscopic onlyCarlos Liu MD Work Phone: Start: 15-32-6457Rewyo dip stick/tablet rgnt auto w/o microscopyCarlos Liu MD Work Phone: Start: 07-18-2021 End: 80-79-2376Ymglosprwxl panelJohnny Robledo MD Work Phone: Start: 50-88-7160PFFYWGWQ REJECTIONJohnny Robledo MD Work Phone: Start: 96-40-8641Qrlvcue blood reagent stripJohnny Robledo MD Work Phone: Start: 14-59-8988Rgsktyzwwq exam swallow function contrast studyJohnny Robledo MD Work Phone: Start: 82-29-0048Ciyykbhoqpq panelJohnny Robledo MD Work Phone: Start: 07-18-2021 End: 89-44-3308Ibtfc of magnesiumSwathi Gary VIVEROS Work Phone: Start: 05-66-3145LXBYH METABOLIC PANEL W/ REFLEX TO MG FOR LOW KSwathi Gary VIVEROS Work Phone: Start: 87-43-9796Jcmfgrf blood reagent stripJohnny Robledo MD Work Phone: Start: 07-17-2021 End: 80-27-9582Opbrfjjhdzn panelBecki Chang MD Work Phone: Start: 80-78-2560Teeba of osmolality Terrance Horton MD Work Phone: Start: 31-60-5716Emmdlpt blood reagent stripJohnny Robledo MD Work Phone: Start: 50-61-2262Riuqt count complete auto&auto difrntl wbcJohnny Robledo MD Work Phone: Start: 00-30-8393Qfjtwtp bacterial blood aerobic w/id isolatesJohnny Robledo MD Work Phone: Start: 43-12-4540RODHLRS, SEPSISJohnny Robledo MD Work Phone: Start: 57-66-1643OHLQQQP, BLOOD 1Bcalvin Robledo MD Work Phone: Start: 07-17-2021 End: 60-93-1932Xobae of magnesiumTami Vega MD Work Phone: Start: 85-36-0485ZFTKT METABOLIC PANEL W/ REFLEX TO MG FOR LOW Madeline Vega MD Work Phone: Start: 37-42-0723Oplhbid blood reagent stripSilver Carmona MD Work Phone: Start: 07-16-2021 End: 39-26-0530Sawbq of magnesiumBecki Chang MD Work Phone: Start: 07-16-2021 End: 11-53-2387Ryxww of magnesiumTami Vega MD Work Phone: Start: 23-05-7032LRWFHZWQO W/ REFLEX TO MAGNESIUM Tami Vega MD Work Phone: Start: 81-72-7702Xpgyfdc blood reagent stripSilver Carmona MD Work Phone: Start: 16-54-2359Dzegp of magnesiumTami Vega MD Work Phone: Start: 99-92-0207BTYRD METABOLIC PANEL W/ REFLEX TO MG FOR LOW Madeline Vega MD Work Phone: Start: 94-92-8765U-reactive proteinSharriet Vega MD Work Phone: Start: 56-99-2572Wypkiuo blood reagent stripSilver Carmona MD Work Phone: Start: 91-87-1049Ktdkv count hemoglobinBecki Chang MD Work Phone: Start: 70-93-9462Pqikdvt blood reagent stripSilver Carmona MD Work Phone: Start: 71-28-6842Li thorax w/o contrast materialBecki Chang MD Work Phone: Start: 69-23-8740Clncp of magnesiumJolynnselorenzo Carmona MD Work Phone: Start: 51-95-0775GWWNLNWHS W/ REFLEX TO MAGNESIUM Silver Carmona MD Work Phone: Start: 02-73-3569Sjqajjx blood reagent stripSilver Carmona MD Work Phone: Start: 80-58-0722VTSMJANO REJECTIONTami Vega MD Work Phone: Start: 47-44-0976Ldhzefs blood reagent stripSilver Carmona MD Work Phone: Start: 33-97-8217Oxyap of glutamyltrase gammaBridgette Stemple [employer] TE[employer] MARKETING INTERN - GRINDING SUPERVISOR Work Phone: Start: 85-17-2825CYIEA METABOLIC PANEL W/ REFLEX TO MG FOR LOW KSharriet Vega MD Work Phone: Start: 13-00-6524Qycajia function panelBridgette Stemple [employer]OR[employer] TE[employer] MARKETING INTERN - GRINDING SUPERVISOR Work Phone: Start: 59-66-4250Amn routine ecg w/least 12 lds trcg only w/o i&rSharriet eVga MD Work Phone: Start: 55-27-8793Rlhizzx blood reagent stripSilver Carmona MD Work Phone: Start: 64-10-3908Jkwwryw blood reagent stripSilver Carmona MD Work Phone: Start: 30-99-0798Bqhovps bacterial blood aerobic w/id isolatesBridgette Stemple [employer]OR[employer] TEAM MARKETING INTERN - GRINDING SUPERVISOR Work Phone: Start: 98-66-7833FMIGHKA, BLOOD 1Bridgette Stemple [employer] TE[employer] MARKETING INTERN - GRINDING SUPERVISOR Work Phone: Start: 19-43-4409Behpj of magnesiumChristopher Sallie Villarreal MD Work Phone: Start: 26-64-2031HXUMB METABOLIC PANEL W/ REFLEX TO MG FOR LOW KChradonis Villarreal MD Work Phone: Start: 08-88-2269CTLZE-19, RAPIDChristopher Sallie Villarreal MD Work Phone: Start: 21-71-8638Jfrqdjnprl exam chest single view Anthony Villarreal MD Work Phone: Start: 07-13-2021 End: 59-10-4587UKNNHVN, BLOOD 1Chradonis Villarreal MD Work Phone: Start: 07-13-2021 End: 97-50-6838Rxwtv of lactateChbarron Villarreal MD Work Phone: Start: 06-79-1957Maqre spine cervical 2 or 3 views Kam Prado [employer] TE[employer] MARKETING INTERN - GRINDING SUPERVISOR Work Phone: Start: 46-33-3241Onve prph ctr vad w/subq port age 3 yr/>Meka Crowe MD Work Phone (unformatted): [phone]: 25-99-6714QNAAQ-19, JAYNEDanitorsten Argueta MD Work Phone: Start: 72-39-8856Fa cervical spine w/o contrast materialAndteofilo Prado [employer] TE[employer] MARKETING INTERN - GRINDING SUPERVISOR Work Phone: Start: 71-99-6201Taocoar blood reagent stripSilver Carmona MD Work Phone: Start: 35-22-0030Fikptcs blood reagent stripSilver Carmona MD Work Phone: Start: 58-76-1328Lyowh of magnesiumPardejoshua Wagner MD Work Phone: Start: 58-75-0118WTUQB METABOLIC PANEL W/ REFLEX TO MG FOR LOW KPardeep Bernard VIVEROS Work Phone: Start: 40-68-8558W-reactive proteinRufus Argueta MD Work Phone: [phone]: 27-30-5591Fekfmuz blood reagent stripJohnny Robledo MD Work Phone: [phone]: 51-27-5459CMLTP-19, RAPIDDaniel Marcell Argueta MD Work Phone: [phone]: 59-67-4118Khldtih blood reagent stripJohnny Robledo MD Work Phone: Start: 44-07-2182Zztlfap blood reagent stripJohnny Robledo MD Work Phone: Start: 79-91-4637Oxgwuer blood reagent Peggy Robledo MD Work Phone: Start: 07-09-2021 End: 74-78-3450Eynqrjq blood reagent Peggy Robledo MD Work Phone: Start: 07-09-2021 End: 75-39-6285Djzfjpw blood reagent Peggy Robledo MD Work Phone: Start: 28-16-6643Nwlnxyy blood reagent stripJohnny Robledo MD Work Phone: Start: 58-52-5662IPQZQ METABOLIC PANEL W/ REFLEX TO MG FOR LOW KPardeep Bernard VIVEROS Work Phone: Start: 22-74-9993Otaxu count complete auto&auto difrntl wbcDanitorsten Argueta MD Work Phone: [phone]: 04-51-3736D-reactive proteinRufus Argueta MD Work Phone: Start: 24-46-7006Ovvoyna blood reagent stripJohnny Robledo MD Work Phone: [phone]: 41-54-2596Dmaxoow blood reagent Peggy Robledo MD Work Phone: Start: 11-98-8184Hrljbav blood reagent stripJohnny Robledo MD Work Phone: Start: 60-32-1244Ohzyi count hemoglobinSwathmagdalena Vega MD Work Phone: Start: 54-64-8678Ingjg of magnesiumPardeep Bernard VIVEROS Work Phone: Start: 71-57-1699PLAZD METABOLIC PANEL W/ REFLEX TO MG FOR LOW KPardeep Bernard VIVEROS Work Phone: Start: 53-65-6260X-reactive proteinDaalex Argueta MD Work Phone: Start: 85-09-9248NWNAUSQ, BLOOD 1Danitorsten Argueta MD Work Phone: Start: 61-56-9621Nrkctgh blood reagent stripJohnny Robledo MD Work Phone: Start: 04-08-8200Erimgxa blood reagent stripJohnny Robledo MD Work Phone: Start: 10-89-2544Blumada blood reagent stripJohnny Robledo MD Work Phone: Start: 16-57-7228HECZHIC, BLOOD 1Danitorsten Argueta MD Work Phone: Start: 83-44-8866Gjzsxdqi screenAlexandlaisha Martinez MD Work Phone: Start: 47-80-9520Igzhfkifbz microscopic onlyDaalex Argueta MD Work Phone: Start: 20-69-0417Gslzo dip stick/tablet rgnt auto w/o microscopyDanitorsten Argueta MD Work Phone: Start: 89-46-3049WRDEA METABOLIC PANEL W/ REFLEX TO MG FOR LOW KPardeep Bernard VIVEROS Work Phone: Start: 74-35-7734Teoet count complete auto&auto difrntl wbcDaalex Argueta MD Work Phone: Start: 33-45-0735L-reactive proteinDaniel Marcell Argueta MD Work Phone: Start: 43-01-5571Gfk prsmptv pthgnc organism scrn w/colony estimjAlisia Cevallos DO Work Phone: Start: 67-35-2507Gqzgnnx blood reagent stripJohnny Robledo MD Work Phone: Start: 75-70-7924Zemlvxavnvz during operationXin Vaishali Cevallos DO Work Phone: Start: 89-90-6401Fbkkpvr ionizedJohnny Robledo MD Work Phone: Start: 11-32-4305PLVB HEART PANELJohnny Robledo MD Work Phone: Start: 99-85-3772Oyznswo bacterial quanttative colony count urineJohnny Robledo MD Work Phone: Start: 07-06-2021 End: 64-76-2169Yjubjneaizh of packed red blood cellsBrent Ally [employer]ORTS TEAM MARKETING INTERN - SPECIAL EVENTS DIRECTOR Start: 35-54-0947Tvqll typing serologic aboJohnny Robledo MD Work Phone: Start: 86-34-3667IQFNJ GAS, ARTERIALJohnny Robledo MD Work Phone: Start: 19-72-2704Feclpvq ionizedJohnny Robledo MD Work Phone: Start: 01-70-2999IIOXRJSY, WHOLE BLOODJohnny Robledo MD Work Phone: Start: 07-67-8911TJVT HEART H&HBcalvin Robledo MD Work Phone: Start: 98-21-7918VZSQZI, WHOLE BLOODJohnny Robledo MD Work Phone: Start: 07-06-2021 End: 53-46-0499OEFVHHRV LAMINECTOMY FUSIONXin Vaishali Cevallos DO Work Phone: Start: 38-71-6394Zvmlwnf blood reagent stripJohnny Robledo MD Work Phone: Start: 30-13-9130Xvpqsnv bacterial quanttative colony count urineDaalex Argueta MD Work Phone: Start: 07-06-2021 End: 15-72-1997Masua of magnesiumHari Wagner MD Work Phone: Start: 92-36-9556ORFYB METABOLIC PANEL W/ REFLEX TO MG FOR LOW KPardeep Bernard VIVEROS Work Phone: Start: 03-69-5894D-reactive proteinRufus Argueta MD Work Phone: Start: 55-50-4905Rqcmxrg blood reagent stripJohnny Robledo MD Work Phone: Start: 30-64-7020Jem brain brain stem w/o w/contrast materialSindy Sunshine [employer]OR[employer] TEAM MARKETING INTERN - POLYSOMNOGRAPHIC TECH Work Phone: Start: 14-14-2055Gekwfzw blood reagent stripJohnny Robledo MD Work Phone: Start: 90-33-6745Jvnclfyinl exam swallow function contrast studyArenkirk Jong [employer]ORTS TEAM MARKETING INTERN - POLYSOMNOGRAPHIC TECH Work Phone: Start: 07-05-2021 End: 01-59-4903Twogcmvyv serum plasma/whole bloodTami Vega MD Work Phone: Start: 62-77-2042Wlnbtkz blood reagent stripJohnny Robledo MD Work Phone: Start: 94-06-9303Tjfbh of Christi Wagner MD Work Phone: Start: 68-35-0899QMVWE METABOLIC PANEL W/ REFLEX TO MG FOR LOW KPardeep Bernard VIVEROS Work Phone: Start: 12-60-6113D-reactive proteinRufus Argueta MD Work Phone: Start: 87-88-3043Wrfjpto blood reagent stripJohnny Robledo MD Work Phone: Start: 67-81-7161Mlu spinal canal cervical w/o & w/contr shannanlAndteofilo Prado [employer] TE[employer] MARKETING INTERN - GRINDING SUPERVISOR Work Phone: Start: 46-08-3041Rsjbilg blood reagent stripJohnny Robledo MD Work Phone: Start: 07-04-2021 End: 54-90-2001CPIYLIU, BLOOD 1Julia Lars Bray [employer]OR[employer] TEAM MARKETING INTERN - POLYSOMNOGRAPHIC TECH Work Phone: Start: 65-52-8476Rjsaiym blood reagent stripJohnny Robledo MD Work Phone: Start: 07-04-2021 End: 33-48-7413Rrzvo of magnesiumParelizabeth Wagner MD Work Phone: Start: 09-38-5616YTZHP METABOLIC PANEL W/ REFLEX TO MG FOR LOW KPardeep Bernard VIVEROS Work Phone: Start: 75-63-6131H-reactive proteinDaalex Argueta MD Work Phone: Start: 85-40-8498Mefjzih blood reagent stripJohnny Robledo MD Work Phone: Start: 91-87-7221Mhilo spine cervical 2 or 3 Tonya Sen MD Work Phone: Start: 46-10-6190Mxnnbpcbv serum plasma/whole blood Hari Wagner MD Work Phone: Start: 16-38-4454Kurzpin blood reagent stripJohnny Robledo MD Work Phone: Start: 77-74-0053Zkxu &/joint imaging 3 phase study Meka Crowe MD Work Phone (unformatted): [phone]: 17-14-0576Ifdqukl blood reagent strip Johnny Robledo MD Work Phone: Start: 31-05-3085Dnrbewrykg exam swallow function contrast studyRufus Argueta MD Work Phone: Start: 08-46-5417Bufj tthrc r-t 2d w/wom-mode compl spec&colr Carrie Crowe MD Work Phone (unformatted): [phone]: 85-29-1275Jfrjqom blood reagent strip Johnny Robledo MD Work Phone: Start: 64-69-9610Xauqk of magnesiumParelizabeth Wagner MD Work Phone: Start: 51-04-6285ZAXCE METABOLIC PANEL W/ REFLEX TO MG FOR LOW KPardeep Bernard VIVEROS Work Phone: Start: 83-73-8832M-reactive proteinDaalex Argueta MD Work Phone: Start: 49-76-8643FMNKETU, BLOOD 1Silver Carmona MD Work Phone: Start: 07-02-2021 End: 34-01-6589Nuiuu count hemoglobinHari Wagner MD Work Phone: Start: 55-84-3710Tqmfemrjs serum plasma/whole blood Silver Carmona MD Work Phone: Start: 56-86-0191Rxlnpeg blood reagent stripSilver Carmona MD Work Phone: Start: 27-30-1843Yolqc count hemoglobinHari Wagner MD Work Phone: Start: 95-87-0798UEHYSWY, BLOOD 1Akartik Crowe MD Work Phone (unformatted): [phone]: 07-02-2021 End: 11-68-0919Aepnfmmxjayhg intra/transmural needle aspirat/bxParelizabeth Wagner MD Work Phone: Start: 49-00-5025Mwgqyig blood reagent stripSilver Carmona MD Work Phone: Start: 09-74-5238Xqjchzgjr serum plasma/whole blood Rufus Argueta MD Work Phone: Start: 97-61-5103Wpmjynd blood reagent stripSilver Carmona MD Work Phone: Start: 40-68-4582Gksvojj blood reagent stripSilver Carmona MD Work Phone: Start: 00-19-1428Dsoeo of Lexie Steve MD Work Phone: Start: 53-34-2235IDDDB METABOLIC PANEL W/ REFLEX TO MG FOR LOW KPardeep Bernard VIVEROS Work Phone: Start: 03-63-0102E-reactive proteinDapbel Marcell Argueta MD Work Phone: Start: 07-01-2021 End: 84-76-9470Gzafd count hemoglobinPardeep Bernard VIVEROS Work Phone: Start: 67-46-4420AHHRK OSTOMY EVALSilver Carmona MD Work Phone: Start: 07-01-2021 End: 74-60-7666Ajrsesu blood reagent stripSilver Carmona MD Work Phone: Start: 53-72-8138Egwpnkmnk serum plasma/whole blood Tami Vega MD Work Phone: Start: 73-10-2573Tzzcmsv blood reagent stripSilver Carmona MD Work Phone: Start: 07-01-2021 End: 50-77-6613Rmbxu of magnesiumTami Vega MD Work Phone: Start: 71-52-3552Lljza of Lexie Steve MD Work Phone: Start: 83-94-1755QWIRV METABOLIC PANEL W/ REFLEX TO MG FOR LOW KPardeep Bernard VIVEROS Work Phone: Start: 95-18-1622N-reactive proteinRufus Argueta MD Work Phone: Start: 70-13-6644JALPQNQ, BLOOD 1Akartik Crowe MD Work Phone (unformatted): [phone]: 06-30-2021 End: 16-73-1145Iiasl count hemoglobinPardejoshua Wagner MD Work Phone: Start: 03-69-7553Ownnntq blood reagent stripSilver Carmona MD Work Phone: Start: 29-32-0421Jbguctp blood reagent strip Jenifer Jewell MD Work Phone: Start: 98-55-8596Awqhw foot complete minimum 3 views Becki Chang MD Work Phone: Start: 06-30-2021 End: 27-73-7016Fahdz count hemoglobinHuhaylie Steve MD Work Phone: Start: 72-40-2683XTZKOAZ, BLOOD 1Argenna Crowe MD Work Phone (unformatted): [phone]: 25-23-8836P-reactive proteinDaniel Marcell Argueta MD Work Phone: Start: 51-82-3713Egtkpvs blood reagent strip Jenifer Jewell MD Work Phone: Start: 96-70-1866Zn cervical spine w/contrast material Mekajack Crowe MD Work Phone (unformatted): [phone]: 83-50-3950Wp thorax w/o contrast materialArgenna Crowe MD Work Phone (unformatted): [phone]: 47-18-0460Crjgyplwuc exam chest single viewBecki Chang MD Work Phone: Start: 95-15-2756AJWKPBHBOOX PANEL, MOLECULAR, WITH COVID-19Becki Chang MD Work Phone: Start: 52-87-6996Pykywwq blood reagent strip Jenifer Jewell MD Work Phone: Start: 85-82-2806Tgyim centrifuge enhncd id imfluor stain Naomi Chang MD Work Phone: Start: 38-53-6264Fjghawzeomhdjrhfvghm w/rec awake&drowsyIsrar Weslye Lopez MD Work Phone: Start: 03-84-7539Xeqdbxa blood reagent strip Jenifer Jewell MD Work Phone: Start: 06-29-2021 End: 40-05-8986Ntido of troponin quantitativeJonathan Steve MD Work Phone: Start: 98-89-9845P-reactive proteinJonathan Steve MD Work Phone: Start: 15-45-5148Pxzpf of magnesiumSuamie Jewell MD Work Phone: Start: 95-85-9175XPUUT METABOLIC PANEL W/ REFLEX TO MG FOR LOW Dudley Jewell MD Work Phone: Start: 83-70-6485Fj cell mediated antign respnse gamma interferonJenifer Jewell MD Work Phone: Start: 96-24-5094Zxr routine ecg w/least 12 lds trcg only w/o i&rRcristy Chang MD Work Phone: Start: 25-98-4528Fjmtzmk blood reagent strip Jenifer Jewell MD Work Phone: Start: 12-05-7524DZBEKDL LABORATORY CHARGESparminder Jewell MD Work Phone: Start: 63-95-5958AMOXPVPB REJECTIONJenifer Jewell MD Work Phone: Start: 52-78-6872Frllyzbupz glycosylated a1c Jenifer Jewell MD Work Phone: Start: 44-64-9479Qewrj panelSparminder Jewell MD Work Phone: Start: 36-94-2709Opfwc herpes somplx virus amplified probe Nathaniel Jewell MD Work Phone: Start: 06-28-2021T. PALLIDUM ABSparminder Jewell MD Work Phone: Start: 38-40-1519VNKWDLYD PATHOLOGY REPORTSubgabo Jewell MD Work Phone: Start: 21-19-9184Wenm count misc body fluids w/differential countDev Méndez MD Work Phone: Start: 04-18-3786Wadfubs body fluid other than blood Dev Méndez MD Work Phone: Start: 06-28-2021 End: 31-66-1765Wnvce nos amplified probe tq each organismDev Méndez MD Work Phone: Start: 54-55-0899CACRDLGAIJ ENCEPHALITIS PANEL CSF, MOLECULARDev Méndez MD Work Phone: Start: 53-81-6402Cood flu washgs/brushings xcpt c/v smrs interpjDev Méndez MD Work Phone: Start: 64-36-1870RWUNWGP, BLOOD 1Dev Méndez MD Work Phone: Start: 65-28-5019Sl angiography neck w/contrast/noncontrastTyler Jemal Méndez MD Work Phone: Start: 56-61-7489Exykw of lipaseDev Méndez MD Work Phone: Start: 06-35-6355MYVRRVL, SEPSISIsrar Wesley Lopez MD Work Phone: Start: 57-89-9644Fqr routine ecg w/least 12 lds trcg only w/o i&rAlexander Yoel Martinez MD Work Phone: Start: 77-92-4373Tt abdomen & pelvis w/contrast Mechelle Boothe MD Work Phone: Start: 84-30-7449Zwuy screen class list Liayh Boothe MD Work Phone: Start: 06-28-2021 End: 55-95-3259Kptua of ammoniaChris Boothe MD Work Phone: Start: 42-86-8383XDXIF-19, RAPIDChris Boothe MD Work Phone: Start: 06-28-2021 End: 81-52-0425Zccamzzrbn microscopic onlyChris Boothe MD Work Phone: Start: 14-48-9450Ztdwr dip stick/tablet rgnt auto w/o microscopyChris Boothe MD Work Phone: Start: 97-01-8507Vm head/brain w/o contrast material Chris Boothe MD Work Phone: Start: 55-74-5799Mmkhupsiqf exam chest single viewChris Boothe MD Work Phone: Start: 76-66-2483Hdmpz of acetaminophenChris Boothe MD Work Phone: Start: 21-15-7304Cyczn of ethanolChris Boothe MD Work Phone: Start: 76-52-3974Iweab of salicylateChris Boothe MD Work Phone: Start: 50-39-4894Rpzjdkko kinase totalChris Boothe MD Work Phone: Start: 34-38-1153RIR AND ELECTRONIC DIFFJoseph Jesse Mtz MD Work Phone: Start: 22-34-1485Iodbjxxh blood count with white cell differential, automatedJoseph Jesse Mtz MD Work Phone: Start: 70-08-3369Zcglfhfxpg bloodJoseph Jesse Mtz MD Work Phone: Start: 39-75-4163Bcbokx-up visitFollow-upNICOLE R BENAMEURStart: 34-96-4982Vjyhtqtsft examination and evaluationJef Sierra Jr., DPM Work Phone: start: 89-63-7395Jcmpthtciu examination and evaluation Jef Sierra Jr., DPM Work Phone: start: 61-13-1538MRGYQ Ortiz Mariela DPM Work Phone: start: 63-83-4760Txdlqffjneiw ophthalmic imaging optic nerveOlga Lidia Matos MD Work Phone: Start: 03-05-1631PFS AND ELECTRONIC DIFFFranck Mtz MD Work Phone: Start: 12-34-3567Iyguihdd blood count with white cell differential, automatedFranck Mtz MD Work Phone: Start: 96-41-4083Pywflfeqbl Zena Mtz MD Work Phone: Start: 61-85-0719Xzeodycfrq examination osseous survey complJojon Mtz MD Work Phone: Start: 18-15-7786ILN AND ELECTRONIC DIFFFranck Mtz MD Work Phone: Start: 68-42-3309Vgqvgyyu blood count with white cell differential, Markie Mtz MD Work Phone: Start: 59-69-5441Bamfqhykiq Zena Mtz MD Work Phone: Start: 12-26-2017 End: 54-12-0679QKPWUU (OUTSIDE)Historical Provider Plan of Treatment DateCare ActivityDetailAuthorStart: 27-72-0280Wzxmwhpnozrf Vaccine: Ped or At- Risk (2 of 2 - PPSV23)Pneumococcal Vaccine: Ped or At-Risk (2 of 2 - PPSV23) [facility]: [facility]24 End: 64-69-8155Gaobhun encounter lvbvorwex30/10/2025 1:45 PM EST Office Visit [facility] [address] [place] [address] Skylar Whitfield DO [address] [place] [address] [facility] EyeStart: 09-27-2024 End: 28-22-2966Psfqeun encounter procedureNOMS OPHTComment on above:Arrived Start: 08-27-2024 End: 01-40-1542Otowuso encounter biuywyxyg54/11/2025 10:30 AM EDT Office Visit [facility] [address] [place] [address] Ramona Campuzano PA [address] [place] [address] ArrivedNOMS SWS DERMComment on above:ArrivedStart: 08-23-2024 End: 34-70-0784Rpqrmre encounter qfhenxzok69/07/2025 10:50 AM EDT Office Visit [facility] [address] [place] [address] Nadia Quiñones, SPORTS TEAM MARKETING INTERN-POLYSOMNOGRAPHIC TECH [address] [place] [address] NOMS SWS DERMStart: 08-17-2024 End: 65-71-7883Okxxbqm encounter utzphkgni25/01/2025 10:50 AM EDT Office Visit [facility] [address] [place] [address] Nadia Quiñones, SPORTS TEAM MARKETING INTERN-POLYSOMNOGRAPHIC TECH [address] [place] [address] NOMS SWS DERMStart: 45-72-5485Bcjnr panel LipidsMercy HealthStart: 07-09-2023 End: 53-95-6296Itmmyuc encounter fnvyuyqoo38/22/2024 9:05 AM EDT Office Visit [facility] [address] [place] [address] Nadia Quiñones, SPORTS TE[employer] MARKETING INTERN-POLYSOMNOGRAPHIC TECH [address] [place] [address] NOMS SWS DERMStart: 10-01-2022 End: 59-94-7993Ngnzwai encounter vxywvcqfb72/15/2023 Office Visit Neurosurgery Alisia Cevallos, DO [address] [place] [address] [facility] ToledoStart: 99-07-4283KTQ test (Diabetes, CKD 3-4, OR last GFR 15-59)GFR test (Diabetes, CKD 3-4, OR last GFR 15-59)[facility] CENTERStbolt: 95-78-2940Znujpfwiuk A1c qinghvrlzmwF7C test (Diabetic or Prediabetic)[facility]: 07-24-2022 Screening for malignant neoplasm of colonBON [facility] Centerart: 54-77-6116Dhkckglg foot examinationBON [facility]: 06-28-2022 Lipid panelBON [facility]: 97-95-8908Fpajuhgg retinal exam Diabetic retinal examBON [facility] Health Centerart: 61-90-3588Ggewyjea retinal eye examEYE EXAMOSUniversity Hospitals Health Systemtart: 19-84-4865Xnnlmclr screening Diabetic retinal examBON [facility]ITALStart: 58-36-3535ODT [facility] Centerart: 50-03-7982ZDGSYZTVAHBBZDE [facility] CenterStart: 03-15-2022 Microalbumin measurement, urine, quantitativeURINE MICROALBUMIN TESTOSU Genesis Hospitaltart: 15-97-2199Vmwwrhe stimulating hormone measurementKettering Health – Soin Medical Centertart: 03-08-2022 End: 64-30-0557Awphddz encounter jrjbupcvk25/20/2023 Office Visit Neurosurgery Al[place] Cevallos, DO [address] [facility] [address] [place] [address] [facility] ToledoStart: 02-14-2022 Ophthalmic examination and evaluationOphthalmology ExamOhioHealthStart: 74-09-6051Vczwhrvcko examination and evaluationOphthalmology ExamOhioHealth Start: 12-07-2021 End: 55-82-0920Jaunchk encounter drpsoblio34/21/2022 Office Visit [facility]rologyMer[facility] HospitalStart: 82-96-7786Qlnkpmpmu vaccinationFlu vaccine (Season Ended)[facility] CampusStart: 88-30-8024HRV [facility]ITALStart: 10-05-2021 Diabetic retinal eye examDIABETIC EYE EXAMOSU Genesis Hospitaltart: 62-40-5478Akhlhgvcuf A1c measurementBON [facility]ITALStart: 09-17-2021 Influenza vaccinationFlu vaccine (#1)BON [facility] Centerart: 09-13-2021 Diabetic retinal eye examDIABETIC EYE EXAMOSU Genesis Hospitaltart: 88-29-2746Ajiadyubot A1c lsaihqaxrpnBAB1S TESTOSUniversity Hospitals Health Systemtart: 02-48-8802SHNTIJFQOIWTIeyro Health SystemStart: 29-47-7850Hegbwyozwrgl measurement, urine, quantitativeURINE MICROALBUMIN TESTLake County Memorial Hospital - Westtart: 65-42-6150Piynicfdf [Moles/volume] in Serum or PlasmaPOTASSIUMLake County Memorial Hospital - Westtart: 08-22-2021 End: 41-11-5569RVBDXRGG LAMINECTOMY [facility] Hospitaltart: 08-22-2021 End: 56-94-3729FXAJ ORStart: 53-41-9948Npttlxni retinal eye examDIABETIC EYE EXAMLake County Memorial Hospital - Westtart: 08-08-2021 End: 13-76-2793Mmnuchk encounter jomufdsag99/22/2022 Office Visit Infectious Diseases Meka Crowe MD [address] [facility], [address] [place] [phone] (Work) [facility], [facility]. Start: 07-31-2021 End: 95-66-7579Qurcurx encounter gkoznafnf17/14/2022 Office Visit Podiatry Jef Sierra Jr., DPM [address] [place] [address] [facility] PodiatryStart: 07-25-2021 End: 38-57-3281Nrdvsrv encounter kkpnjikdc46/08/2022 Office Visit Neurosurgery Alie Loza, SPORTS TEAM MARKETING INTERN - POLYSOMNOGRAPHIC TECH [address] [facility] [address] [facility] [address] [place] [address] [facility] ToledoStart: 07-17-2021 End: 22-32-2660Uimlvik encounter ogswvyvgs61/31/2022 Office Visit Urology Kevin Quintanilla MD [address] [place] [address] [facility] CenterStart: 07-13-2021 End: 42-92-0796Rkyhl metabolic 2000 panel - Serum or PlasmaBON [facility] Work Phone: start: 07-10-2021 End: 62-48-6885Gbhtgzs encounter yjcdjfici38/24/2022 Office Visit Neurology Franck Mtz MD [address] [place] [address] [facility] CareStart: 57-34-7365Uqpdwiobxl A1c elbcekgdulwC6ARvcdYkazlhMfhpy: 07-04-2021 End: 80-15-0452rdnxdicpib95/18/2022 Infusion Visit [facility]rologyInfusion [facility] CareStart: 06-20-2021 End: 31-50-8621sxmwscpobo11/04/2022 Infusion Visit NeurologyInfusion [facility] CareStart: 06-18-2021 End: 77-68-5145Iiedher encounter pajcxhsta46/02/2022 Office Visit Endocrinology, Diabetes & Metabolism Luis Miguel Kaur MD [address] [place] [address] [facility] EndocrinologyStart: 06-07-2021 End: 65-61-2979Sxqdgwp encounter fehjgzvfy00/21/2022 Office Visit Ophthalmology Sharon Hernandez MD [address] [facility] [address] [place] [address] [facility] Start: 06-06-2021 End: 94-68-2140qorzpigokg67/20/2022 Infusion Visit NeurologyInfusion Yadi Ramachandran Outpatient CareStart: 06-05-2021 End: 28-32-3573Febhepa encounter hfeqckiwm07/19/2022 Office Visit Orthopaedics Yaritza [place] MD [address] [id number] [facility] Orthopedics & Sports MedicineStart: 05-31-2021 End: 08-60-8029Rwoytur encounter bozntvhla67/14/2022 Office Visit Ophthalmology Sharon Hernandez MD [address] [place] [address] [facility] Start: 05-23-2021 End: 24-14-1192akqratgyuu41/06/2022 Infusion Visit NeurologyInfusion Yadi Ramachandran Outpatient CareStart: 05-15-2021 End: 31-29-7280Esaxtyt encounter nahbgbwxz11/29/2022 Office Visit Ophthalmology Olga Lidia Matos MD [address] [place] [address] [facility]tart: 04-17-2021 End: 65-85-8563Zdjagbw encounter nfeepydgt84/01/2022 Office Visit Podiatry Jef Sierra Jr., DPM [address] [place] [address] [facility] PodiatryStart: 03-06-2021 End: 62-51-4773Nigumpq encounter xrfyllmzm52/18/2022 Office Visit PodiatrJef Boykin Jr., DPM [address] [place] [address] [facility] PodiatryStart: 03-04-2021 Hemoglobin A1c measurementUniversity Hospitals Ahuja Medical Centerart: 02-20-2021 End: 00-09-8342Rujrjmq encounter jtieeesku30/04/2022 Office Visit Jef Vieira Jr., DPM [address] [place] [address] [facility] PodiatryStart: 2021 End: 36-07-7570Jnjdsnu encounter kxarfzfvi00/21/2021 Office Visit Jef Vieira Jr., DPM [address] [place] [address] [facility] PodiatryStart: 01-30-2021 End: 26-54-4574Tnpfpfn encounter yokikxffj21/14/2021 Office Visit Jef Vieira Jr., DPM [address] [place] [address] [facility] PodiatryStart: 01-23-2021 End: 88-70-2087Gobgulg encounter updyxaudf77/07/2021 Office Visit Jef Vieira Jr., DPM [address] [place] [address] [facility] PodiatryStart: 01-16-2021 End: 48-41-9961Yomwtll encounter /30/2021 Office Visit Jef Vieira Jr., DPM [address] [place] [address] [facility] PodiatryStart: 01-09-2021 End: 30-40-5973Myqcwzr encounter tglevhtin45/23/2021 Office Visit PodJef Wagner Jr., DPM [address] [place] [address] [facility] PodiatryStart: 01-01-2021 End: 82-66-5554Hdmpxkh encounter jffiddzfy25/15/2021 Office Visit Neurology Nurys Thornton R, SPORTS TEAM MARKETING INTERN-POLYSOMNOGRAPHIC TECH [address] [place] [address] Neurology [facility] Start: 12-26-2020 End: 99-67-2151Vwgdbmt encounter vdpokgafn19/09/2021 Office Visit Podiatry Jef Sierra Jr., DPM [address] [place] [address] [facility] Physician [facility] PodiatryStart: 12-02-2020 Hemoglobin A1c pqgbduallftL6GUizxSrtfjeKrajw: 11-30-2020 End: 97-16-1273Uucysel encounter exznlnsmr88/14/2021 Office Visit Ophthalmology Sharon Hernandez MD [address] [place] [address] [facility] Eye [facility] Start: 11-16-2020 End: 97-88-3543Xpummdy encounter zypnxupjq33/30/2021 Office Visit Podiatry Jef Sierra Jr., DPSallie 45 [place] [address] [facility] Physician [facility] PodiatryStart: 11-16-2020 End: 79-67-1946Vpfljlh encounter /30/2021 Office Visit Endocrinology, Diabetes & Metabolism Luis Miguel Kaur MD [address] [place] [address] [facility] EndocrinologyStart: 11-14-2020 End: 33-09-5722Zdwkrae encounter fgyvareyn38/28/2021 Office Visit Ophthalmology Olga Lidia Matos MD [address] [place] [address] [facility]tart: 11-07-2020 End: 40-33-0699Kybhxaf encounter uiateysxb18/21/2021 Office Visit Neurology Nurys Thornton, SPOR[employer] TEAM MARKETING INTERN-POLYSOMNOGRAPHIC TECH [address] [place] [address] Neurology [facility] Start: 66-16-9594Mkobeiosw vaccinationOhioHealthStart: 10-18-2020 End: 47-27-2260Fomdhag encounter /01/2021 Office Visit Ophthalmology Sharon Hernandez MD [address] [place] [address] [facility] Start: 10-17-2020 End: 55-43-3712ycbameayou53/31/2021 Infusion Visit NeurologyInfusion [facility] CareStart: 10-10-2020 End: 40-14-5349Pyybvel encounter onhzxhtzc11/24/2021 Office Visit Ophthalmology Olga Lidia Matos MD [address] [place] [address] [facility] Hospitaltart: 53-64-8456Lskbpjfzdvzx 0-64 years Vaccine (2 - PCV)Pneumococcal 0-64 years Vaccine (2 - PCV)BON [facility]ITALStart: 73-33-8501IRU [facility]: 10-05-2020 End: 52-91-7240Uvvsgxl encounter zxvfujcpn23/19/2021 Office Visit Ophthalmology Sharon Hernandez MD [address] [place] [address] [facility] Start: 10-03-2020 End: 88-18-5290fvxfefnwbbVcozseis Yadi [facility]cocerhouse Outpatient CareStart: 10-03-2020 End: 76-28-4578Ghturnr encounter qtavhschm25/17/2021 Office Visit PodiatrJef Boykin Jr., DPM [address] [place] [address] [phone] [facility] PodiatryStart: 09-26-2020 End: 18-85-4157NQPORNC MOTOR NEUROPATHY [facility] Work Phone: comment on above:Expected: 09/26/2020, Expires: 09/26/2021tart: 09-26-2020 End: 87-82-2364HJFYLOPOhio State Harding HospitalComment on above:Expected: 09/26/2020, Expires: 09/26/2021tart: 09-19-2020 End: 45-83-6795tiejvlhqop59/03/2021 Infusion Visit NeurologyInfusion Yadi Alcocerhouse Outpatient CareStart: 09-14-2020 End: 18-99-2855Jxpjtlj encounter meryfcslu78/29/2021 Office Visit PodiatrJef Boykin Jr., MARK [address] [place] [address] [phone] [facility] Physician [facility] PodiatryStart: 93-93-9754Nvywqsrhh vaccinationFlu vaccine (#1)[place], [place]Start: 35-01-9448Lszahxgzk vaccination givenSequential Influenza Vaccine (#1)[facility] HospitalStart: 08-25-2019 Creatinine measurementCreatinine monitoringAshtabula County Medical Center KYStart: 08-25-2019 Potassium monitoringPotassium monitoringBarberton Citizens Hospital, KYStart: 08-12-2019 Urine screening for proteinBON SECOURS [facility]'S HOSPITALStart: 72-06-4814OSCYPSXIRPZU [facility] Work Phone: Start: 51-55-3073Stekqzxd retinal eye examDIABETIC EYE EXAMThe Christ Hospital Work Phone: Start: 80-60-0167Zjvnvmptuae QnTMercy Health [facility] Hospital Work Phone: Start: 40-18-4181Pnchut Wellness Visit (AWV)Annual Wellness Visit (AWV)ARASELI CRUZ [facility]OS[facility]ITALStart: 21-10-5775OrK7f (Bld) [Mass fraction]A1C test (Diabetic or Prediabetic)[place], [place]Start: 07-06-2018 End: 77-80-0585Vjayajgqes22/20/2019 Office Visit Neurology Nurys Thornton, SPORTS TEAM MARKETING INTERN-POLYSOMNOGRAPHIC TECH [address] [address] [facility]rology [facility] HospitaliliSaint [facility]ius Hospitaltart: 94-42-9949Fpeqgzpttv A1c/Hemoglobin.total mass fraction (Bld)HBA1C TESTThe Christ Hospital Work Phone: Start: 69-53-3720Dijbdfy mass concMAMMOGRAM SCREENING DISCUSSIONThe Christ Hospital Work Phone: Start: 11-63-2184Twmgdhpqg mammographyMAMMOGRAM SCREENING [facility]ertart: 04-02-2018 End: 81-41-9142Uwwypdxhpp82/14/2019 Appointment NEUROPHYSIOLOGY Estefania Markham MD [address] [place] [address] Department of NeurologyStart: 03-20-2018 End: 38-06-3782Bcyyjevotz28/01/2019 Office Visit Ophthalmology Grace Washington MD [address] [place] [address] [facility]Start: 03-05-2018 End: 40-71-7552BiaewlapzvTwwndrnm of Hematology & OncologyStart: 02-03-2018 End: 55-92-5901Hflnwrrmyx77/18/2018 Office Visit Sleep Medicine Stefani Estrada MD [address] [place] [address] Department of Sleep MedicineStart: 01-22-2018 End: 99-61-1878LsfwnwphfzJcfgi Health RheumatologyStart: 39-09-3368Duahamqjx vaccinationOhioHealthStart: 29-25-2967Ehpwsqdho vaccination givenSEQUENTIAL INFLUENZA VACCINE (#1)IdahoHealthStart: 95-23-8336Lidoc panelLipid [place], [place]Start: 08-82-8042Bbeunblitb34/23/2018 Hospital Encounter Martha Yanney, DPM [address] [place] [address] [phone] [facility] Columbustart: 62-99-4980Yupysicyop60/19/2018 Office Visit Cardiology GilliamIndiraPili Franck, DPM [address] [place] [address] [phone] Reji Miramontes III, DO [address] [place] [address] [phone] [facility] Vascular PhysiciansStart: 99-31-7677Mveujnuzx vaccinationSEQUENTIAL INFLUENZA VACCINE (#1)[facility]HealthStart: 45-96-6292Qfwcgpnw microalbuminuria testDiabetic microalbuminuria [place], [place]Start: 89-20-4351Jyhcvekpbeavzc of herpes zoster vaccineZoster Vaccines (2 of 3)[facility] HospitalStart: 20-09-0222Lbmcwkjk vaccine (1 of 2)Shingles vaccine (1 of 2)[facility]Start: 45-13-6651Wyinmptk vaccine (2 of 3)Shingles vaccine (2 of 3)[facility] CampusStart: 18-97-9428Fioeac vaccine hzv live for subcutaneous useZOSTER (SHINGLES) VACCINE (2 of 3)[facility] Main Campustart: 66-42-2352RMU [facility]ITALStart: 56-52-8971Aftuwxcxasevid of herpes zoster vaccineZoster Vaccines (1 of 2) IdahoHealthStart: 35-33-5088JodhcvahopmTEMWA CANCER SCREENING [facility] Work Phone: Start: 69-88-3500Bnifynh mass concCOLON CANCER SCREENING DISCUSSIONThe Christ Hospital Work Phone: Start: 49-54-5618Syqlqlopp for malignant neoplasm of breastMercy HealthStart: 36-11-8927Srsbhvzkk for malignant neoplasm of colon OhioHealthStart: 89-05-2678Dtzwenku Vaccine (1 of 2)Shingles Vaccine (1 of 2) [place], [place]Start: 96-13-5755Eukwbu vaccine hzv live for subcutaneous useZOSTER (SHINGLES) VACCINE (1 of 2)[facility] Westtart: 02-07-2008 ColonoscopyCOLORECTAL CANCER SCREENING DISCUSSIONOSUniversity Hospitals Health Systemtart: 30-65-6594Vafarcchm for malignant neoplasm of colonSamaritan North Health Center HealthStart: 2003 Screening for malignant neoplasm of breastMammogramOhKing's Daughters Medical Center OhioStart: 1993 Screening for malignant neoplasm of cervixSamaritan North Health Center HealthStart: 58-07-1315Xvruhnhrk for malignant neoplasm of cervixOSUniversity Hospitals Health Systemtart: 1982 DTaP/Tdap/Td vaccine (1 - Tdap)DTaP/Tdap/Td vaccine (1 - Tdap)[facility] CampusStart: 18-24-0432Xvyqmnvhj B vaccine (1 of 3 - Risk 3-dose series)Hepatitis B vaccine (1 of 3 - Risk 3-dose series)[facility]ENTERStart: 20-47-4779Juaib diphtheria, tetanus and acellular pertussis (DTaP) vaccinationTDAP (ADULT)OSUniversity Hospitals Health Systemtart: 23-19-2017IYT [facility]: 1981 Hepatitis C antibody, confirmatory testHepatitis C ScreeningAultman Alliance Community HospitalStart: 60-90-2074Njiclwhos C screeningAultman Alliance Community HospitalStart: 11-34-0103Tdbdhtunjndo measurement, urine, quantitativeURINE MICROALBUMIN TESTThe Christ Hospital Work Phone: Start: 34-75-3511Iqyvdky vaccinationTETANUSOSUniversity Hospitals Health Systemtart: 61-71-6372SBVSM-19 Vaccine (1 of 2)COVID-19 Vaccine (1 of 2)OhioHealthStart: 15-55-0254RQC screeningOhHealthStart: 92-99-6391OUL screeningHIV SCREENING [facility] Work Phone: Start: 99-76-8114Tlokmiuttr depression screening assessmentDepression Screening (PHQ9)[facility] HospitalStart: 72-78-9079MAQGT-19 Vaccine (1)COVID-19 Vaccine (1)[facility] HospitalStart: 87-54-1132Rjkucivrfc ScreenDepression ScreenSt. Mary's Medical Center, Ironton Campusart: 85-91-9774Jxublzdmzl screening using PHQ-9 (Patient Health Questionnaire 9) scoreOhioHealthStart: 99-75-4266ZAZCLINCH VALLEY MEDICAL CENTER Start: 50-27-8630Pqzsojuy foot examination (regime/therapy)[facility] HospitalStart: 50-19-8239Goisseii retinal examDiabetic retinal examAshtabula County Medical Center KYStart: 31-16-4517Zdgfwssasxpr measurement, urine, quantitativeUrine Microalbumin [facility]HealthStart: 31-10-6711Jhpjnnoxif examination and evaluationOPHTHALMOLOGY EXAMOhioEast Liverpool City HospitalStart: 29-17-7216Crdru, microalbuminURINE MICROALBUMINAultman Alliance Community Hospital Start: 27-47-9282Dyetmgndxmln Vaccine: Ped or At-Risk (1 of 2 - PPSV23) Pneumococcal Vaccine: Ped or At-Risk (1 of 2 - PPSV23)IdahoHealthStart: 76-65-6168NVQQA-19 Vaccine (1)COVID-19 Vaccine (1)IdahoHealthStart: 02-51-8908VMPCLINCH VALLEY MEDICAL CENTERStart: 78-57-4537Modbazk and physical examination, annual for health maintenanceWellindiana university [facility] VisitOhioHealthStart: 52-19-8745NUQTE-19 Vaccine (#1)COVID-19 Vaccine (#1)[facility]ENTERStart: 59-14-1568Faquqf Wellness Visit (AWV)Annual Wellness Visit (AWV)[facility] Iront[facility] Campusart: 1963 Diabetic foot examinationDIABETIC FOOT EXAMOSU Genesis Hospitaltart: 82-03-6829ArE0eQOIMCAGQNP P0ULblhXgzchkTgmbc: 85-48-2282Xnxavoevbg A1c noebjtbkezxF2MZznvOqefswDtkjy: 79-87-9564Mhwdbwloz C antibody, confirmatory test HEPATITIS C SCREENINGOhioHealthStart: 43-01-2721PPIXIOKOD C SCREENINGHEPATITIS C SCREENINGOhioHealthStart: 80-49-6802Ppixatfck C screeningHepatitis C [facility] KYStart: 02-08-8812Frchwxc mass concMammogramOhioHealthStart: 40-73-3539Joeyzmmik colonoscopyCOLONOSCOPYOhioHealthStart: 62-66-6038Ndwpborud for malignant neoplasm of cervixPAP SMEAROhioHealthStart: 81-33-9058Uaoxytrzy for malignant neoplasm of colonColorectal Cancer Screening: Colonoscopy OhioHealthStart: 62-23-7027Vlzqxxeuq mammographyMammogramOhioHealthStart: 55-01-6873Gmmbgxa vaccinationOhioHealthStart: 18-66-7599OLLCLINCH VALLEY MEDICAL CENTER Aerobic cultureAerobic culture Microbiology Timed Impetigo Release Upon Ordering for 1 Occurrences starting 08/27/2024[facility] [employer] Work Phone: comment on above:Release Upon Ordering for 1 Occurrences starting 08/27/2024 End: 22-16-8983Ffvrizh microbial cultureWound Aerobic Culture Microbiology Routine Foot abscess, left 1 Occurrences starting 09/14/2020 until 09/14/2021 OhioHealthComment on above:1 Occurrences starting 09/14/2020 until 09/14/2021 Aerobic microbial cultureWound Aerobic Culture Microbiology Routine Wound infection Partial thickness burn of single finger of right hand excluding thumb, initial encounter 05/01/2021 3:00 PM EDTOhiTogus VA Medical CenterHuaxia Dairy Farm Work Phone: Basic Metabolic Panel w/ Reflex to [employer] Work Phone: basic Metabolic Panel w/ Reflex to TE[facility] STATE HOSPITALDynadmic [facility] HOSPITALTechnology [employer] ([employer]) Work Phone: bLOOD GAS, [facility] [employer] Work Phone: blood gas, [facility] Community HospitalDynadmic [facility] HOSPITALTechnology [employer]writing [employer] ([employer]) Work Phone: [phone]-tbxurzpe proteinBON FR[facility] [employer] Work Phone: cBC W Auto Differential panel - BloodSENTARA HALIFAX [facility] [employer] Work Phone: End: 61-62-7202MZY W Auto Differential panel - BloodCLINCH VALLEY MEDICAL CENTER Work Phone: cBC W Auto Differential panel - BloodSENTARA HALIFAX REGIONAL [facility]OSPITAL [employer] Work Phone: continuous pulse oximetryBON [facility] [employer] Work Phone: End: 41-71-5071XJYOA-19COVID-19 Lab Routine Once for 1 Occurrences starting 02/17/2020 until 02/17/2020[facility]- [place], [place]Comment on above:Once for 1 Occurrences starting 02/17/2020 until 02/17/2020 End: 88-17-4973Feizygxswa [Mass/volume] in Serum or PlasmaSENTARA HALIFAX REGIONAL HOSPITAL [employer] Work Phone: culture, Anaerobic and AerobicBON FRANK [facility]. [facility] [employer] Work Phone: End: 49-87-1674Fcygznd, Blood 1[employer] Work Phone: Comment on above:One Time for 1 Occurrences starting 06/28/2021 until 2Culture, Blood 1[facility] [employer] Work Phone: culture, Blood 1[facility] [employer] Work Phone: culture, Blood 1[facility] [employer] Work Phone: Culture,BacterialCulture,Bacterial Routine 03/14/2017 9:30 AM ESTOhioHealth Work Phone: Glucose [Mass/volume] in Serum or PlasmaSENTARA HALIFAX REGIONAL [facility]ITAL [employer] Work Phone: Glucose [Mass/volume] in Serum or PlasmaSENTARA HALIFAX REGIONAL [facility]OSPITAL [employer] Work Phone: End: 45-29-9973Kbfkqhx [Mass/volume] in Serum or PlasmaBON SECTheLocker Phone: End: 36-06-1898Twueoheg RT Adult Mechanical Ventilation ProtocolMIRAVISTA BEHAVIORAL HEALTH CENTERTheLocker Phone: Mechanical Ventilation with default initial settings [facility] [employer] Phone: Oxygen therapy [Minimum Data Set][facility] [employer] Phone: Oxygen therapy [Minimum Data Set][facility] BEHAVIORAL HEALTH CENTERTheLocker Phone: End: 32-51-4275IGXWEDHH SPECIMENABRAZO SCOTTSDALE CAMPUS [employer] Phone: End: 41-53-7335YXGQFRJE SPECIMENMIRAVISTA BEHAVIORAL HEALTH CENTERTheLocker Phone: End: 76-70-0065MWBBKUEG MARGOTABRAZO SCOTTSDALE CAMPUS Fl[employer] Phone: End: 53-32-0230ZMTYQMSD SPECIMENMIRAVISTA BEHAVIORAL HEALTH CENTERTheLocker Phone: Respiratory Care Evaluation and TreatMIRAVISTA BEHAVIORAL HEALTH CENTERTheLocker Phone: End: 58-08-5542VMB clinical swallow evaluationMIRAVISTA BEHAVIORAL HEALTH CENTERTheLocker Phone: End: 66-26-2344Lxtlxh and language therapy regimeMIRAVISTA BEHAVIORAL HEALTH CENTERTheLocker Phone: spontaneous Breathing Trial (SBT)[facility] Flipswap Phone: End: 49-76-8530Kxken ostomy eval and treatMIRAVISTA BEHAVIORAL HEALTH CENTERTheLocker Phone: Immunizations Immunization DateImmunizationNotesCare UfsrvtnyRjudchtj94-24-0976pviziurim virus vaccine, unspecified formulationJef Sierra Jr. DPM Work Phone: [phone]lmrtg70-65-3965vauabqlnswfo vaccine, unspecified formulationJef Sierra Jr. DPM Work Phone: [phone]whhpa90-00-6749msioiltyo virus vaccine, whole virusFranck Mtz MD Work Phone: TDY [facility] HospitalCiggeo64-71-5649ysxujmbrn, seasonal, injectableFranck Mtz MD Work Phone: NYE [facility] HospitalYvyyfv90-85-7504ukgelw vaccine, liveFranck Mtz MD Work Phone: [facility]09-18-2014influenza virus vaccine, unspecified formulationTodd Quorum Healths [facility] Work Phone: [phone]vybyrk vaccine, unspecified formulation Franck Mtz MD Work Phone: I [facility] HospitalBinkao88-89-3732xzvqyhwrvfzq polysaccharide vaccine, 23 valentFranck Mtz MD Work Phone: [facility] Payers DatePayer CategoryPayerPolicy ID2023MedicaidMEDICAID [id number] [id number] 2003Medicarexxxxxxxxxx 2.16.840.1.722655.3.249.13 2003Medicare ..[id number] [id number] 1.2.840.753398.1.13.385.2.7.3.857829.57404-18-9851Tpcfjdnuhb (not Medicare or Medicaid)[facility] 1.2.840.944769.1.13.693.2.7.9.699660.712800.77426-74-9599Dmpzpezshnqaicgz 2.840.1.458271.3.249.5134-83-5362Liyuyrpdxrfm2433 1.2.840.243529.1.13.385.2.7.3.762654.25374-18-3504Rgvpdqt 1.2.840.246513.1.13.385.2.7.3.889666.81219-06-7427Ptqgaay77085955 2.840.1.037413.3.579.2.43917-15-2460Ejfjtpy4004269 2.16.840.1.796187.3.579.2.16806-58-5876Htevdmc1716435 2.16.840.1.665621.3.579.2.89989-86-0303Znrpjiw775748244 2.16.840.1.297934.3.579.2.28245-66-1358Hrlcyoz962370119 2.16.840.1.944123.3.579.2.14683-05-1782Wqctdlr506520212 2.16.840.1.489834.3.579.2.07173-08-7446Wdfnnnm371725293 2.16.840.1.122496.3.579.2.37331-25-8774Khidves216052439 2.16.840.1.792019.3.579.2.11083-13-7806Tepwkxn582725284 2.16.840.1.875828.3.579.2.00615-95-5213Zvywxbf976554327 2.16.840.1.633475.3.579.2.74483-39-6535Niyrfeb128911262 2.16.840.1.227696.3.579.2.45475-68-6446Sxmdgbo733214460 2.16.840.1.519062.3.579.2.11698-97-7471Yssehcl551902363 2.16.840.1.798601.3.579.2.71940-71-1118Sxmaaju661003343 2.16.840.1.694446.3.579.2.52569-54-3285Ajfftah347262042 2.16.840.1.259845.3.579.2.14768-15-7161Txnfprt725561693 2.16.840.1.120719.3.579.2.02417-44-9377Ealeise177189363 2.16.840.1.167224.3.579.2.20300-59-1381Aiyroda519965141 2.16.840.1.392019.3.579.2.82961-08-5534Rilqvfp582564118 2.16.840.1.933009.3.579.2.82395-89-0928Vyblxew360931065 2.16.840.1.225825.3.579.2.54923-06-3425Fsdcamg84276218 2.16.840.1.692843.3.579.2.878668-45-7942Oyctuzz78272191 2.16.840.1.287278.3.579.2.711603-50-6391Zuzwaon402319443 2.16.840.1.700685.3.579.2.53574-41-7748Ryrazjg142118034 2.16.840.1.223393.3.579.2.03694-05-4885Bfenunx536997559 2.16.840.1.258488.3.579.2.83537-36-1298Tbzjxft45338606 2.16.840.1.124222.3.579.2.77177-26-9782Zjjxfsm319429142 2.16.840.1.012313.3.579.2.50358-44-2543Vxnxyss265725326 2.16.840.1.706489.3.579.2.99921-03-5919Tsklpny718777973 2.16.840.1.847758.3.579.2.94533-32-2071Jfhzvct658083943 2.16.840.1.589166.3.579.2.76470-99-7700Jizlxvi483373832 2..840.1.833965.3.579.2.31457-93-2968Vonhnpe807647556 2.16.840.1.451758.3.579.2.80270-82-4602Zqtqjle956564805 2.16.840.1.656101.3.579.2.96354-23-4193Mzhvjqb855109890 2.16.840.1.645514.3.579.2.00589-93-9291Bnlrstq293657819 2.16.840.1.038035.3.579.2.70448-25-1466Nmhyfjj717025532 2.16.840.1.008370.3.579.2.62792-73-0462Jvaoxtc575839523 2.16.840.1.548064.3.579.2.04833-20-2387Xyefrdq251245819 2.16.840.1.630202.3.579.2.58799-91-1140Xlbarnr054065359 2.16.840.1.987914.3.579.2.28213-02-6996Dtdxjwy369478963 2.16.840.1.572329.3.579.2.95290-78-9259Azkcxhx880498194 2..840.1.477513.3.579.2.95514-22-3415Vwbrusd183835594 2..840.1.017036.3.579.2.84684-55-2641Ozozdkm775137321 2..840.1.526477.3.579.2.91775-62-3695Gppdskg300522880 2..840.1.381102.3.579.2.75173-55-3723Kipbxxr386490962 2.16.840.1.107962.3.579.2.18896-85-4997Foikbdj643548604 2.16.840.1.224968.3.579.2.35338-86-4483Gtcvvsu815384988 2.16.840.1.731759.3.579.2.51132-06-0535Foffvhd891780040 2.16.840.1.601391.3.579.2.26348-64-8433Rharrkk158295427 2.16.840.1.004587.3.579.2.97258-32-9327Tkkfxft36895301 2.16.840.1.851816.3.579.2.15538-33-4292Jqqyilv474450051 2..840.1.541437.3.579.2.20498-40-5785Ovhqdzo388868331 2.16.840.1.295230.3.579.2.61792-45-9495Jwtfswz96579490 2..840.1.345698.3.579.2.23871-21-0363Lpwvpth40960372 2..840.1.870928.3.579.2.93115-73-2111Euobyia36078567 2..840.1.043263.3.579.2.94453-70-2409Tezjbxx74795110 2..840.1.954452.3.579.2.78978-23-8358Ioykhuw74086615 2.0.1.769198.3.579.2.97726-48-7722Sjivhcv01738510 2.0.1.777266.3.579.2.637582-92-7195Izhvuuv86260592 2..840.1.847108.3.579.2.113078-53-2163Sicmewn0651585 2.840.1.112637.3.579.2.1259 [id number] 1962Unknown [id number] 2.840.[id number] 2.0.1.407259.3.249.95Ytumcsu830516014Egujgbg93809213 2.840.1.757372.3.579.2.531 Social History DateTypeDetailFacilityStart: 04-07-2017 End: 43-76-0852Ubsxslm smoking status NHISFormer smokerOhioHealth End: 30-49-9113Oblmixx of tobacco useCurrent smokerOhioHealthStart: 1965 Sex Assigned At BirthNot on fileMaioEast Liverpool City Hospital Work Phone: Start: 03-15-2017 End: 33-34-8713Hxsgbjb smoking status NHISUnknown if ever smokedRIVERTON [facility] End: 10-69-4747Cmsfuvm of tobacco useCigarette SmokerMontefiore Health Systems [facility] Work Phone: Start: 07-76-2044Rbiypff Commentdoesn't remember how much she smokedOhioHealthStart: 88-03-5230Fgrjgef CommentrarelyOhioHealthStart: 12-20-2019 End: 18-29-0040Edxrirm use and exposureNever usedOhioHealthStart: 12-20-2019 End: 47-78-5874Biskoea intakeCurrent drinker of alcohol (finding)[facility] Start: 04-07-2021 End: 18-31-4028Ktpsdtkm to SARS-CoV-2 (event)Not sureOhioHealthStart: 10-05-2017 End: 83-07-5994Ilkzkso intakeCurrent non-drinker of alcohol (finding)[facility] KYStart: 88-29-9295Wjo Assigned At BirthMiami Valley HospitalGender identityNot on [facility] HealthcareStart: 73-99-6665Uzg FemaleSaint Francis Medical Center Medical Equipment Procedure CodeEquipment CodeEquipment Original TextEquipment IdentifierDates1 strip by Unknown route 3 times daily (take before meals).[id number]: 10-13-2017 End: 35-67-7316Ljuw Au00t0 D 23.5 - [id number]_imbIiman: 35-98-7794Jwe Tissue Cornea [place] [id number]: 14-00-3033Qorjijr Opth 250sq Mm Jo 1 Qdrnt Ins Fx Sut Hl Rcs Knt Cpb - [id number]: 02-23-2020 [id number]_impStart: 24-00-0249Zat Screw [facility] M6 - [id number]_rexYajdx: 09-25-2021 Clinical Notes 09-13-2020 to 12-23-2024 Note Date & EdxtTxpdEkvwojxc22-58-7523 Telephone encounter Note* Telephone Encounter - Jay Chávez NP - 12/23/2024 1:09 PM EST Please call the facility and let them know the meds were sent. [facility] CenterZxftjfktdk44-50-8876 Miscellaneous Notes* Telephone Encounter - Jay Chávez NP - 12/23/2024 1:09 PM EST Please call the facility and let them know the meds were sent. * Telephone Encounter - Jany Becerra MA - 12/13/2024 9:04 AM EDT Hi, my name is Alaina. I am calling from [facility]. Assisted living calling on [facility]. By s date of is 122 1965 changes new prescriptions for her [employer] [...] and she use the [facility]. If you have any questions, you can give me a Call at [phone]. Thank you, bimal. Omeprazole ,levothyro vitamin d 400 units daily and vitamin 100 units daily she stated she was on synthroid 100 mcg , this is not on her list documented in this encounterSaint Francis Medical CenterScbywvbrau29-08-1269 Telephone encounter Note* Telephone Encounter - Jany Becerra MA - 12/13/2024 9:04 AM EDT Dorian, my name is Alaina. I am calling from [facility]. Assisted living calling on [facility]. By s date of is 12[address] 1965 changes new prescriptions for her [employer] [...] and she use the [facility]. If you have any questions, you can give me a Call at [phone]. Thank you, bimal. Omeprazole ,levothyro vitamin d 400 units daily and vitamin 100 units daily she stated she was on synthroid 100 mcg , this is not on her list [facility] CenterMganrswdlj06-31-9894 Telephone encounter Note* Telephone Encounter - Jay Cháevz NP - 12/07/2024 11:53 AM EDT Requested Prescriptions Signed Prescriptions Disp Refills DULoxetine (Cymbalta) [address] capsule 30 capsule 11 Sig: Take 1 capsule (60 mg) by mouth Daily Authorizing Provider: JAY CHÁVEZ calcium carbonate (Tums Ultra) 1000 MG chewable tablet 30 tablet 11 Sig: Chew 1 tablet (1,000 mg) at bedtime Authorizing Provider: JAY CHÁVEZ [facility] CenterNvozwzoqzf32-85-5207 Miscellaneous Notes* Telephone Encounter - Jay Chávez [...] Authorizing Provider: JAY CHÁVEZ documented in this [facility]10-14-2025 Telephone encounter Note* Telephone Encounter - Jay [...] mouth Daily Authorizing Provider: JAY CHÁVEZ patient. [facility] CenterInrfkluwzw56-07-0971 Miscellaneous Notes* Telephone Encounter - Jay Chávez [...] Provider: JAY CHÁVEZ patient. documented in this [facility]10-07-2025 Telephone encounter Note* Telephone Encounter - Jay Chávez NP - 11/23/2024 6:57 PM EDT Requested Prescriptions Signed Prescriptions Disp Refills potassium chloride CR (K-Tab) 20 MEQ ER tablet 30 tablet 11 Sig: Take 1 tablet (20 mEq) by mouth Daily Do not crush, chew, or split. Authorizing Provider: JAY CHÁVEZ [facility] CenterOdybdzarcm00-51-6425 Miscellaneous Notes* Telephone Encounter - Jay Chávez NP - 11/23/2024 6:57 PM EDT Requested Prescriptions Signed Prescriptions Disp Refills potassium chloride CR (K-Tab) 20 MEQ ER tablet 30 tablet 11 Sig: Take 1 tablet (20 mEq) by mouth Daily Do not crush, chew, or split. Authorizing Provider: JAY CHÁVEZ documented in this [facility]10-07-2025 Telephone encounter Note* Telephone Encounter - Mahin Bernal MD - 11/23/2024 9:35 AM EDT Needed refill of Potassium Chloride [facility] CenterPcnnxhymfm37-51-2267 Miscellaneous Notes* Telephone Encounter - Mahin Bernal MD - 11/23/2024 9:35 AM EDT Needed refill of Potassium Chloride documented in this [facility]10-06-2025 Telephone encounter Note* Telephone Encounter - Jay [...] chew, or split. Authorizing Provider: JAY CHÁVEZ [place] [address]Jeckjuidga63-17-3477 Miscellaneous Notes* Telephone Encounter - Jay Chávez [...] Authorizing Provider: JAY CHÁVEZ documented in this encounterSaint Francis Medical CenterIjamifclks33-05-3058 NoteRight Eye Reliability was good. Progression has been stable. Foveal threshold was normal. Findings include superior arcuate defect, superior nasal step defect. Left Eye Reliability was good. Progression has been stable. Foveal threshold was normal. Findings include superior arcuate defect, superior nasal step defect, inferior nasal step defect.[facility] Medical CenterJjvcnzwhvq43-75-4429 History of Present illness Narrative* Skylar Whitfield, - 09/27/2024 1:15 PM EDT Images from [...] laser capsulotomy, they are to notify their sand shoveler promptly if they have a significant change in symptoms, such as flashes of light (photopsia), an increase in floaters, loss of visual field or decrease in visual acuity. Dry eyes - Dry Eyes OU -- Environmental changes to minimize dryness and exposure and the use of artificial tears were recommended. documented in this encounterSaint Francis Medical CenterBypjvbgwol55-72-3897 History of Present illness Narrative* COY Hopper [...] Account Name: Marisa Jonas NPI: Ramona Campuzano [id number] Next Visit: prn for any new/changing lesions documented in this encounterSaint Francis Medical CenterOjnjkmkuew08-84-4291 History of Present illness Narrative* Skylar Whitfield, [...] laser capsulotomy, they are to notify their sand shoveler promptly if they have a significant change in symptoms, such as flashes of light (photopsia), an increase in floaters, loss of visual field or decrease in visual acuity. Dry eyes - Dry Eyes OU -- Environmental changes to minimize dryness and exposure and the use of artificial tears were recommended. documented in this encounterSaint Francis Medical CenterVovwnvgpop48-97-2305 NoteED Patient Education Note Orthopedics Acute Back [...] Managing pain, stiffness, and swelling ??? Take bwwj-cag-kjkgkmx and prescription medicines only as told by [...] day. ??? Do not sit, drive, or unix engineer one place for more than 30 [...] control problems. ??? Y (more content not included)...[facility]07-07-2022 Note MR#: [id number] I [facility] Pt. Name: Meg Georges Admitted: 08/19/2021 [...] PEG tube. The patient recently was at [facility] in June for complaint of MSSA septicemia. She was trached at that time. She also was found to have an epidural phlegmon, which was causing compression on the cervicomedullary junction. She was given 6 weeks course of antibiotics for osteomyelitis. She had surgery at [facility] postoperatively here after the packing was removed from her nares as she was found to have leaking from her nares. She had a CT facial and brain, which showed a possible CSF leak. Decision was made by our Neurosurgery team and our SICU team to transfer her back to her surgeon since . She was accepted and transferred back to the ICU at [facility]. The patient was discharged in stable condition. Electronically Signed by: Jerry Pozo MD 08/23/2021 11:13 A Jerry Pozo MD I have reviewed this discharge summary and confirmed the resident's documentation. Please note that there may be additional documentation from me. Date Dict: 08/22/2021/05:19 P/Mai Grier CNP Date Trans: 08/23/2021 07:42 A/genaro DN_JN:[id number] cc: Johny Beckman M.D. [address] [facility]. Emergency Medicine [facility] [address] Neri Purcell D.O. 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 [...] Anthropometric Measures: Height: 5' 5 (165.1 cm) Enigma Body Weight (IBW): 125 lbs (57 kg) [...] were not included. [facility] -Progress Note Today's Date and Time: [...] of C2 fx noted Infection Control Recommendations [place] Precautions Isolate for Covid until 07-23-21 Antimicrobial [...] through 08-20-21. Patient was transferred back to [facility] on 07-14-21 because of a [...] EPIDURAL PHLEGMON performed byAlisia Cevallos DO at [facility] OR CHOLECYSTECTOMY EYE SURGERY [address] shunt for open angle glaucoma. MRI compatible- device is all silicone LAMINECTOMY 07/06/2021 Posterior C1, LEFT C2 RHIZOTOMY, EXPLORATION OF EPIDURAL PHLEGMON PICC INSERTION VASCULAR ACCESS TEAM 07/10/2021 SHOULDER SURGERY right TRACHEOSTOMY 07/30/2021 TRACHEOSTOMY N/A 07/30/2021 TRACHEOTOMY performed by Erica Santiago MD at [facility] OR UPPER GASTROINTESTINAL ENDOSCOPY N/A 07/02/2021 EGD ESOPHAGOGASTRODUODENOSCOPY performed by Hari Wagner MD at [facility] Endoscopy Medications: insulin glargine 10 Units [...] Friends and Family: Not on file Attends Adventism Services: Not on file Active Member of [...] extension (from neutral), as above. Medical Decision Djhurj-Xeztifzu-Tgucx: SARS-CoV-2, Rapid COVID-19, Rapid Collected: 07/13/21 7628 Result status: Final Resulting lab: [facility] Reference range: Not Detected Value: [...] this assay. Fact sheet for Healthcare Providers: https://www.fda.gov/media/621626/download Fact sheet for Patients: https://www.fda.gov/media/586261/download Methodology: Isothermal Nucleic Acid Amplification Culture, Respiratory Order: [id number] Status: Final result Visible to patient: No (not released) Next appt: Today at 02:30 PM in Radiology (STV MRI RM 1 (1.5T)) Specimen Information: Sputum Aspirated 0 Result Notes Component 07/24/21 3877 Specimen Description .ASPIRATED SPUTUM Direct Exam < 10 EPITHELIAL CELLS/LPF Direct Exam >25 NEUTROPHILS/LPF Direct Exam MANY GRAM NEGATIVE RODS Abnormal Culture KLEBSIELLA AEROGENES HEAVY GROWTH Abnormal Culture NO NORMAL ROB Resulting Agency [facility] Susceptibility Klebsiella aerogenes (1) Antibiotic Interpretation Microscan [...] Patient's name: Meg Georges Patient's account/billing number: [id number] Patient's Date of : 1965 Age: 56 y.o. Date of Admission: 07/14/2021 4:12 PM Length of stay during current admission: 27 Primary Care Physician: Neri Purcell Sr, DO ICU Attending Physician: Dr. Ochoa [...] patient was sent to the ED in [facility] from outpatient infusion center whereshe had been [...] Date 08/10/21 0000 - 08/10/21 2359 Shift 5960-4911 8968-5892 1305-8946 24 Hour Total INTAKE I.V.(mL/kg) 169(2.9) 169(2.9) [...] Results Component Value Date PHART 7.406 07/06/2021 XAB6JCT 34.8 07/06/2021 PO2ART 279.0 07/06/2021 IWL5QJB 21.4 07/06/2021 D4CBXBGI 99.4 07/06/2021 FIO2 30.0 08/05/2021 Lactic Acid: [...] No results for input(s): LABIRON, TIBC, FERRITIN, SGDSEFMC74, FOLATE, OCCULTBLD in the last 72 hours. [...] MD Department of Internal Medicine/ Critical care [facility]) 08/10/2021, 7:54 AM Attending Physician Statement I [...] this chart was generated using voice recognition [employer] dictation software. Although every effort was made to ensure the accuracy of this automated knitted goods shaper, some errors in knitted goods shaper may have occurred. * Leeann Smith RN - 08/09/2021 6:22 PM EDT PALLIATIVE CARE NURSING ASSESSMENT Patient: Meg Georges Room: 3024/3024-01 Reason For Consult Goals of care evaluation Distress management Guidance and support Facilitate communications Assistance in coordinating care Code Status: Full Code Summary: Pt visit, stable on cpap trial. Awaiting placement to [facility]. Spoke with COURTNEY Santamaria 08/10/21. I gave her suggestions on how to locate Living Will/ Will information. Discussed code classifications again. She confirms understanding and thinks her sister would want to remain full code. Acknowledged and supported Hina in this decision as well as moving forward with transfer to [facility]. Encouraged her to call as [...] [facility]. She was [...] Hina relates patient filled out DPOAH at [facility] in [place]. 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 soon as bed is available. Wishedpatient and family well moving forward. Service Transformer Repair Supervisor Leeann UREÑA, RN, ONN-CG [place] Office: [phone] [place] Office: [phone] [facility] Office: [phone] For Symptom Management Clinic scheduling please call [phone] * Seth Stokes MD - 08/09/2021 10:52 AM EDT Images from the original note were not included. [facility] -Progress Note Today's Date and Time: [...] of C2 fx noted Infection Control Recommendations [place] Precautions Isolate for Covid until 07-23-21 Antimicrobial [...] through 08-20-21. Patient was transferred back to [facility] on 07-14-21 because of a [...] EPIDURAL PHLEGMON performed byAlisia Cevallos DO at [facility] OR CHOLECYSTECTOMY EYE SURGERY [address] shunt for open angle glaucoma. MRI compatible- device is all silicone LAMINECTOMY 07/06/2021 Posterior C1, LEFT C2 RHIZOTOMY, EXPLORATION OF EPIDURAL PHLEGMON PICC INSERTION VASCULAR ACCESS TEAM 07/10/2021 SHOULDER SURGERY right TRACHEOSTOMY 07/30/2021 TRACHEOSTOMY N/A 07/30/2021 TRACHEOTOMY performed by Erica Santiago MD at [facility] OR UPPER GASTROINTESTINAL ENDOSCOPY N/A 07/02/2021 EGD ESOPHAGOGASTRODUODENOSCOPY performed by Hari Wagner MD at [facility] Endoscopy Medications: QUEtiapine 25 mg Oral [...] Friends and Family: Not on file Attends Adventism Services: Not on file Active Member of [...] extension (from neutral), as above. Medical Decision Jpebiy-Fgdxdfqz-Lahix: SARS-CoV-2, Rapid COVID-19, Rapid Collected: 07/13/21 4976 Result status: Final Resulting lab: [facility] Reference range: Not Detected Value: [...] this assay. Fact sheet for Healthcare Providers: https://www.fda.gov/media/296290/download Fact sheet for Patients: https://www.fda.gov/media/651658/download Methodology: Isothermal Nucleic Acid Amplification Culture, Respiratory Order: [id number] Status: Final result Visible to patient: No [...] Abnormal Culture NO NORMAL ROB Resulting Agency [facility] Susceptibility Klebsiella aerogenes (1) Antibiotic Interpretation Microscan [...] Patient's name: Meg Georges Patient's account/billing number: [id number] Patient's Date of : 1965 Age: 56 y.o. Date of Admission: 07/14/2021 4:12 PM Length of stay during current admission: 26 Primary Care Physician: Neri Purcell Sr, DO ICU Attending Physician: Dr. Willoughby [...] patient was sent to the ED in [facility] from outpatient infusion center whereshe had been [...] 0100 (!) 81/47 78 15 100 % 06/23/22 0030 122/63 86 18 100 % Intake/Output Summary (Last 24 hours) at 08/09/2021 0812 Last data filed at 08/09/2021 0752 Gross per 24 hour Intake 1970.15 ml Output 1600 ml Net 370.15 ml Date 08/09/21 0000 - 08/09/21 2359 Shift 5940-1204 0020-2327 4888-5263 24 Hour Total INTAKE I.V.(mL/kg) 191(3.2) 191(3.2) [...] Results Component Value Date PHART 7.406 07/06/2021 ZJV1VGR 34.8 07/06/2021 PO2ART 279.0 07/06/2021 KNP1GFC 21.4 07/06/2021 Y6YVPWPH 99.4 07/06/2021 FIO2 30.0 08/05/2021 Lactic Acid: [...] No results for input(s): LABIRON, TIBC, FERRITIN, ZHXBSMDU18, FOLATE, OCCULTBLD in the last 72 hours. [...] MD Department of Internal Medicine/ Critical care [facility]) 08/09/2021, 8:12 AM Attending Physician Statement I [...] this chart was generated using voice recognition Webmedxon dictation software. Although every effort was made to ensure the accuracy of this automated knitted goods shaper, some errors in knitted goods shaper may have occurred. * Juliette Childress, PT - 08/08/2021 4:02 PM EDT Physical Therapy Facility/Department: [facility] 3 Physical Therapy Initial Assessment Name: Meg [...] patient was sent to the ED in [facility] from outpatient infusion center whereshe had been [...] Commands: Impaired Other (Comment): intermittant, appeared to vp cardiovascular service line R hand to commands, appeared to try [...] were not included. [facility] -Progress Note Today's Date and Time: [...] of C2 fx noted Infection Control Recommendations [place] Precautions Isolate for Covid until 07-23-21 Antimicrobial [...] through 08-20-21. Patient was transferred back to [facility] on 07-14-21 because of a [...] EPIDURAL PHLEGMON performed byAlisia Cevallos DO at [facility] OR CHOLECYSTECTOMY EYE SURGERY [address] shunt for open angle glaucoma. MRI compatible- device is all silicone LAMINECTOMY 07/06/2021 Posterior C1, LEFT C2 RHIZOTOMY, EXPLORATION OF EPIDURAL PHLEGMON PICC INSERTION VASCULAR ACCESS TEAM 07/10/2021 SHOULDER SURGERY right TRACHEOSTOMY 07/30/2021 TRACHEOSTOMY N/A 07/30/2021 TRACHEOTOMY performed by Erica Santiago MD at [facility] OR UPPER GASTROINTESTINAL ENDOSCOPY N/A 07/02/2021 EGD ESOPHAGOGASTRODUODENOSCOPY performed by Hari Wagner MD at [facility] Endoscopy Medications: QUEtiapine 50 mg Oral [...] Friends and Family: Not on file Attends Adventism Services: Not on file Active Member of [...] following labs: CBC with Differential: Recent Labs 08/06/21343 WBC 12.3* HGB 8.6* HCT 26.3* PLT 565* LYMPHOPCT 17* MONOPCT 5 BMP: Recent Labs 08/06/21 0344 08/08/21621 NA 143 141 K 3.6* 3.8 CL [...] extension (from neutral), as above. Medical Decision Xsuawg-Malmaidt-Yuyvu: SARS-CoV-2, Rapid COVID-19, Rapid Collected: 07/13/21 7300 Result status: Final Resulting lab: [facility] Reference range: Not Detected Value: [...] this assay. Fact sheet for Healthcare Providers: https://www.fda.gov/media/813880/download Fact sheet for Patients: https://www.fda.gov/media/183005/download Methodology: Isothermal Nucleic Acid Amplification Culture, Respiratory Order: [id number] Status: Final result Visible to patient: No (not released) Next appt: Today at 02:30 PM in Radiology (STV MRI RM 1 (1.5T)) Specimen Information: Sputum Aspirated 0 Result Notes Component 07/24/21 7628 Specimen Description .ASPIRATED SPUTUM Direct Exam < 10 EPITHELIAL CELLS/LPF Direct Exam >25 NEUTROPHILS/LPF Direct Exam MANY GRAM NEGATIVE RODS Abnormal Culture KLEBSIELLA AEROGENES HEAVY GROWTH Abnormal Culture NO NORMAL ROB Resulting Agency [facility] Susceptibility Klebsiella aerogenes (1) Antibiotic [...] patient. Please call with questions. Jany Francis, SPORTS TEAM MARKETING INTERN - POLYSOMNOGRAPHIC TECH ATTESTATION: I have discussed the case, including pertinent history and exam findings with the SPORTS TEAM MARKETING INTERN. I have evaluated the History, physical findings and pictures of the patient and the coffey elements of the encounter have been performed by me. I have reviewed the laboratory data, other diagnostic studies and discussed them with the SPORTS TEAM MARKETING INTERN. I have updated the medical record where necessary. I agree with the assessment, plan and orders as documented by the SPORTS TEAM MARKETING INTERN. Seth Stokes MD. * Guy Ochoa MD - 08/08/2021 7:18 AM EDT Critical Care Team - Daily Progress Note Date and time: 08/08/2021 7:18 AM Patient's name: Meg Georges Patient's account/billing number: [id number] Patient's Date of : 1965 Age: 56 y.o. Date of Admission: 07/14/2021 4:12 PM Length of stay during current admission: 25 Primary Care Physician: Neri Purcell Sr, ICU Attending Physician: Dr. 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 [...] MD Department of Internal Medicine/ Critical care [facility]) 08/08/2021, 7:18 AM Attending Physician Statement I [...] this chart was generated using voice recognition [employer] dictation software. Although every effort was made to ensure the accuracy of this automated knitted goods shaper, some errors in knitted goods shaper may have occurred. * Alisia Cevallos DO [...] Anthropometric Measures: Height: 5' 5 (165.1 cm) Enigma Body Weight (IBW): 125 lbs (57 kg) [...] Too soon to determine VANESSA RAYA RD, LD Contact: * Leeann Smith RN - 08/07/2021 4:16 PM EDT PALLIATIVE CARE NURSING ASSESSMENT Patient: Meg Georges Room: [address] [place] [address] Reason For Consult Goals of care evaluation [...] know that I will be rounding at [facility] all week. Goals/Plan of care Education/support to [...] to call us as needed. Update given. Service Transformer Repair Supervisor Leeann UREÑA, RN, ONN-CG [facility] Office: [phone] [place] Office: [phone] [facility] Office: [phone] For Symptom Management Clinic scheduling please call [phone] * Seth Stokes MD - 08/07/2021 10:19 AM EDT Images from the original note were not included. [facility] -Progress Note Today's Date and Time: [...] view prior to surgicalintervention. Infection Control Recommendations [place] Precautions Isolate for Covid until 07-23-21 Antimicrobial [...] through 08-20-21. Patient was transferred back to [facility] on 07-14-21 because of a [...] EPIDURAL PHLEGMON performed byAlisia Cevallos DO at [facility] OR CHOLECYSTECTOMY EYE SURGERY [address] shunt for open angle glaucoma. MRI compatible- device is all silicone LAMINECTOMY 07/06/2021 Posterior C1, LEFT C2 RHIZOTOMY, EXPLORATION OF EPIDURAL PHLEGMON PICC INSERTION VASCULAR ACCESS TEAM 07/10/2021 SHOULDER SURGERY right TRACHEOSTOMY 07/30/2021 TRACHEOSTOMY N/A 07/30/2021 TRACHEOTOMY performed by Erica Santiago MD at [facility] OR UPPER GASTROINTESTINAL ENDOSCOPY N/A 07/02/2021 EGD ESOPHAGOGASTRODUODENOSCOPY performed by Hari Wagner MD at [facility] Endoscopy Medications: QUEtiapine 25 mg Oral [...] Friends and Family: Not on file Attends Adventism Services: Not on file Active Member of [...] Decision Making-Imaging: No new imaging Medical Decision Hfsoyl-Aulfozcm-Fyxry: SARS-CoV-2, Rapid COVID-19, Rapid Collected: 07/13/21 2194 Result status: Final [facility] Reference range: Not Detected [...] this assay. Fact sheet for Healthcare Providers: https://www.fda.gov/media/849665/download Fact sheet for Patients: https://www.fda.gov/media/902430/download Methodology: Isothermal Nucleic Acid Amplification Culture, Respiratory Order: [id number] Status: Final result Visible to patient: No (not released) Next appt: Today at 02:30 PM in Radiology (STV MRI RM 1 (1.5T)) Specimen Information: Sputum Aspirated 0 Result Notes Component 07/24/21 3424 Specimen Description .ASPIRATED SPUTUM Direct Exam < 10 EPITHELIAL CELLS/LPF Direct Exam >25 NEUTROPHILS/LPF Direct Exam MANY GRAM NEGATIVE RODS Abnormal Culture KLEBSIELLA AEROGENES HEAVY GROWTH Abnormal Culture NO NORMAL ROB Resulting Agency [facility] Susceptibility Klebsiella aerogenes (1) Antibiotic [...] Patient's name: Meg Georges Patient's account/billing number: [id number] Patient's Date of : 1965 Age: 56 y.o. Date of Admission: 07/14/2021 4:12 PM Length of stay during current admission: 24 Primary Care Physician: Neri Purcell Sr, ICU Attending Physician: Dr. 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 [...] MD Department of Internal Medicine/ Critical care [facility]) 08/07/2021, 7:58 AM Attending Physician Statement I [...] this chart was generated using voice recognition [employer] dictation software. Although every effort was made to ensure the accuracy of this automated knitted goods shaper, some errors in knitted goods shaper may have occurred. * Kam Loera, SPORTS TEAM MARKETING INTERN - POLYSOMNOGRAPHIC TECH - 08/06/2021 4:50 PM EDT Neurosurgery NATE/Resident [...] Quinteros MD - 08/06/2021 3:58 PM EDT [facility] reconsult Meg Georges is a 56 [...] No results for input(s): LABIRON, TIBC, FERRITIN, TYOZCCUT50, FOLATE, OCCULTBLD in the last 72 hours. [...] contact me with any questions or concerns. Renateeran Genevieve Quinteros PGY-1 Internal Medicine [place], [place] 3:59 PM 08/06/2021 Associated attestation - [...] with appropriate modifications. Leigh Mcintosh MD Gastroenterology [facility], [place], [place] * Seth Stokes MD - 08/06/2021 10:36 AM EDT Images from the original note were not included. [facility] -Progress Note Today's Date and Time: [...] view prior to surgicalintervention. Infection Control Recommendations [place] Precautions Isolate for Covid until 07-23-21 Antimicrobial [...] through 08-20-21. Patient was transferred back to [facility] on 07-14-21 because of a [...] EPIDURAL PHLEGMON performed byAlisia Cevallos DO at [facility] OR CHOLECYSTECTOMY EYE SURGERY [address] shunt for open angle glaucoma. MRI compatible- device is all silicone LAMINECTOMY 07/06/2021 Posterior C1, LEFT C2 RHIZOTOMY, EXPLORATION OF EPIDURAL PHLEGMON PICC INSERTION VASCULAR ACCESS TEAM 07/10/2021 SHOULDER SURGERY right TRACHEOSTOMY 07/30/2021 TRACHEOSTOMY N/A 07/30/2021 TRACHEOTOMY performed by Erica Santiago MD at [facility] OR UPPER GASTROINTESTINAL ENDOSCOPY N/A 07/02/2021 [...] Friends and Family: Not on file Attends Adventism Services: Not on file Active Member of [...] Decision Making-Imaging: No new imaging Medical Decision Tbbwmd-Zefwlfry-Qbhce: SARS-CoV-2, Rapid COVID-19, Rapid Collected: 07/13/21 6267 Result status: Final Resulting lab: [facility] Reference range: Not Detected Value: [...] this assay. Fact sheet for Healthcare Providers: https://www.fda.gov/media/372893/download Fact sheet for Patients: https://www.fda.gov/media/363654/download Methodology: Isothermal Nucleic Acid Amplification Culture, Respiratory Order: [id number] Status: Final result Visible to patient: No (not released) Next appt: Today at 02:30 PM in Radiology (STV MRI RM 1 (1.5T)) Specimen Information: Sputum Aspirated 0 Result Notes Component 07/24/21 7513 Specimen Description .ASPIRATED SPUTUM Direct Exam < 10 EPITHELIAL CELLS/LPF Direct Exam >25 NEUTROPHILS/LPF Direct Exam MANY GRAM NEGATIVE RODS Abnormal Culture KLEBSIELLA AEROGENES HEAVY GROWTH Abnormal Culture NO NORMAL ROB Resulting Agency [facility] Susceptibility Klebsiella aerogenes [...] patient. Please call with questions. Jany Francis, SPORTS TEAM MARKETING INTERN - POLYSOMNOGRAPHIC TECH ATTESTATION: I have discussed the case, including pertinent history and exam findings with the SPORTS TEAM MARKETING INTERN. I have evaluated the History, physical findings and pictures of the patient and the coffey elements of the encounter have been performed by me. I have reviewed the laboratory data, other diagnostic studies and discussed them with the SPORTS TEAM MARKETING INTERN. I have updated the medical record where necessary. I agree with the assessment, plan and orders as documented by the SPORTS TEAM MARKETING INTERN. Seth Stokes MD. * Guy Ochoa MD - 08/06/2021 7:27 AM EDT Critical Care Team - Daily Progress Note Date and time: 08/06/2021 7:27 AM Patient's name: Meg Barton Patient's account/billing number: [id number] Patient's Date of : 1965 Age: 56 y.o. Date of Admission: 07/14/2021 4:12 PM Length of stay during current admission: 23 Primary Care Physician: Neri Purcell Sr, DO ICU Attending Physician: Dr. Willoughby [...] patient was sent to the ED in [facility] from outpatient infusion center whereshe had been [...] Date 08/06/21 0000 - 08/06/21 2359 Shift 9363-1602 5518-2578 2904-2900 24 Hour Total INTAKE I.V.(mL/kg) 244.5(4) 244.5(4) [...] Results Component Value Date PHART 7.406 07/06/2021 CJY4LCJ 34.8 07/06/2021 PO2ART 279.0 07/06/2021 RJQ2YRF 21.4 07/06/2021 O8TABHKL 99.4 07/06/2021 FIO2 30.0 08/05/2021 Lactic Acid: [...] No results for input(s): LABIRON, TIBC, FERRITIN, POJCJBDL01, FOLATE, OCCULTBLD in the last 72 hours. [...] MD Department of Internal Medicine/ Critical care [facility]) 08/06/2021, 7:27 AM Attending Physician Statement I [...] this chart was generated using voice recognition [employer] dictation software. Although every effort was made to ensure the accuracy of this automated knitted goods shaper, some errors in knitted goods shaper may have occurred. * Chelsea Seaman Sra, MD - 08/05/2021 1:52 PM EDT Images from the original note were not included. Critical Care Team - Daily Progress Note Date and time: 08/05/2021 1:52 PM Patient's name: Meg Georges Patient's account/billing number: [id number] Patient's Date of : 1965 Age: 56 y.o. Date of Admission: 07/14/2021 4:12 PM Length of stay during current admission: 22 Primary Care Physician: Neri Purcell Sr, DO ICU Attending Physician: Dr. Willoughby [...] degree Ulcer prophylaxis: [] PPI Agent, [x] K3Jxdhe, [] Sucralfate, [] Other: Glycemic control: Controlled [...] patient was sent to the ED in [facility] from outpatient infusion center whereshe had been [...] Date 08/05/21 0000 - 08/05/21 2359 Shift 6783-5922 3975-5402 9853-0965 24 Hour Total INTAKE I.V.(mL/kg) 223.2(3.5) 86.6(1.4) [...] Results Component Value Date PHART 7.406 07/06/2021 RCI3NAZ 34.8 07/06/2021 PO2ART 279.0 07/06/2021 RFF5WRJ 21.4 07/06/2021 M9MIVKVU 99.4 07/06/2021 FIO2 30.0 08/05/2021 Lactic Acid: Lab Results Component Value Date LACTA 1.0 07/13/2021 LACTA 1.6 06/28/2021 DATA: Complete Blood Count: Recent Labs 08/03/2144508/04/2143908/05/21437 WBC 11.9* 10.5 9.5 HGB 8.3* 8.0* [...] Metabolic Profile: Recent Labs 08/03/21 0446 08/04/21 04408/05/21437 NA 139 141 143 K 3.6* 3.5* [...] No results for input(s): LABIRON, TIBC, FERRITIN, SADNVPGI11, FOLATE, OCCULTBLD in the last 72 hours. [...] MD Department of Internal Medicine/ Critical care [facility]) 08/05/2021, 1:52 PM Associated attestation - Aniket Padron MD - 08/05/2021 4:24 PM EDT Attending Physician Statement I have discussed the case of Meg Georges, including pertinent history and exam findings with the resident/fellow/medical student/GRINDING SUPERVISOR/PA. I have seen and examined the patient and the coffey elements of the encounter have been performed by me. I agree with the assessment, plan and orders as documented by the resident/fellow/medical student/GRINDING SUPERVISOR/PA With changes made to the note as [...] 4:24 PM * Santino Kincaid APRN - [facility] - 08/05/2021 9:38 AM EDT Images from the original note were not included. [facility] -Progress Note Today's Date and Time: [...] placed 07/30/21 per ENT Infection Control Recommendations [place] Precautions Isolate for Covid until 07-23-21 Antimicrobial [...] through 08-20-21. Patient was transferred back to [facility] on 07-14-21 because of a [...] EPIDURAL PHLEGMON performed byAlisia Cevallos DO at [facility] OR CHOLECYSTECTOMY EYE SURGERY [address] shunt for open angle glaucoma. MRI compatible- device is all silicone LAMINECTOMY 07/06/2021 Posterior C1, LEFT C2 RHIZOTOMY, EXPLORATION OF EPIDURAL PHLEGMON PICC INSERTION VASCULAR ACCESS TEAM 07/10/2021 SHOULDER SURGERY right TRACHEOSTOMY 07/30/2021 TRACHEOSTOMY N/A 07/30/2021 TRACHEOTOMY performed by Erica Santiago MD at [facility] OR UPPER GASTROINTESTINAL ENDOSCOPY N/A 07/02/2021 EGD ESOPHAGOGASTRODUODENOSCOPY performed by Hari Wagner MD at [facility] Endoscopy Medications: insulin glargine 20 Units [...] Friends and Family: Not on file Attends Adventism Services: Not on file Active Member of [...] labs: CBC with Differential: Recent Labs 08/04/210 08/05/21437 WBC 10.5 9.5 HGB 8.0* 7.7* HCT 23.7* 24.2* PLT 429 458* LYMPHOPCT 17* 19* MONOPCT 7 6 BMP: Recent Labs 08/04/21 0440 08/05/21437 NA 141 143 K 3.5* 3.5* CL [...] Decision Making-Imaging: No new imaging Medical Decision Fedijs-Bykkonxs-Jrcvp: SARS-CoV-2, Rapid COVID-19, Rapid Collected: 07/13/21 0342 Result status: Final Resulting lab: [facility] Reference range: Not Detected Value: [...] this assay. Fact sheet for Healthcare Providers: https://www.fda.gov/media/992723/download Fact sheet for Patients: https://www.fda.gov/media/908061/download Methodology: Isothermal Nucleic Acid Amplification Culture, Respiratory Order: [id number] Status: Final result Visible to patient: No (not released) Next appt: Today at 02:30 PM in Radiology (STV MRI RM 1 (1.5T)) Specimen Information: Sputum Aspirated 0 Result Notes Component 07/24/21 7474 Specimen Description .ASPIRATED SPUTUM Direct Exam < 10 EPITHELIAL CELLS/LPF Direct Exam >25 NEUTROPHILS/LPF Direct Exam MANY GRAM NEGATIVE RODS Abnormal Culture KLEBSIELLA AEROGENES HEAVY GROWTH Abnormal Culture NO NORMAL ROB Resulting Agency [facility] Susceptibility Klebsiella aerogenes (1) Antibiotic [...] were not included. [facility] -Progress Note Today's Date and Time: [...] placed 07/30/21 per ENT Infection Control Recommendations [place] Precautions Isolate for Covid until 07-23-21 Antimicrobial [...] through 08-20-21. Patient was transferred back to [facility] on 07-14-21 because of a [...] EPIDURAL PHLEGMON performed byAlisia Cevallos DO at [facility] OR CHOLECYSTECTOMY EYE SURGERY [address] shunt for open angle glaucoma. MRI compatible- device is all silicone LAMINECTOMY 07/06/2021 Posterior C1, LEFT C2 RHIZOTOMY, EXPLORATION OF EPIDURAL PHLEGMON PICC INSERTION VASCULAR ACCESS TEAM 07/10/2021 SHOULDER SURGERY right TRACHEOSTOMY 07/30/2021 TRACHEOSTOMY N/A 07/30/2021 TRACHEOTOMY performed by Erica Santiago MD at [facility] OR UPPER GASTROINTESTINAL ENDOSCOPY N/A 07/02/2021 EGD ESOPHAGOGASTRODUODENOSCOPY performed by Hari Wagner MD at [facility] Endoscopy Medications: insulin glargine 20 Units [...] Friends and Family: Not on file Attends Adventism Services: Not on file Active Member of [...] Decision Making-Imaging: No new imaging Medical Decision Tbkvdr-Eicscpzb-Gcebv: SARS-CoV-2, Rapid COVID-19, Rapid Collected: 07/13/212306 Result status: Final Resulting lab: [facility] Reference range: Not Detected Value: [...] this assay. Fact sheet for Healthcare Providers: https://www.fda.gov/media/971439/download Fact sheet for Patients: https://www.fda.gov/media/051146/download Methodology: Isothermal Nucleic Acid Amplification Culture, Respiratory Order: [id number] Status: Final result Visible to patient: No (not released) Next appt: Today at 02:30 PM in Radiology (STV MRI RM 1 (1.5T)) Specimen Information: Sputum Aspirated 0 Result Notes Component 07/24/21 9383 Specimen Description .ASPIRATED SPUTUM Direct Exam < 10 EPITHELIAL CELLS/LPF Direct Exam >25 NEUTROPHILS/LPF Direct Exam MANY GRAM NEGATIVE RODS Abnormal Culture KLEBSIELLA AEROGENES HEAVY GROWTH Abnormal Culture NO NORMAL ROB Resulting Agency [facility] Susceptibility Klebsiella aerogenes (1) Antibiotic [...] EPIDURAL PHLEGMON performed byAlisia Cevallos DO at [facility] OR CHOLECYSTECTOMY EYE SURGERY [address] shunt for open angle glaucoma. MRI compatible- device is all silicone LAMINECTOMY 07/06/2021 Posterior C1, LEFT C2 RHIZOTOMY, EXPLORATION OF EPIDURAL PHLEGMON PICC INSERTION VASCULAR ACCESS TEAM 07/10/2021 SHOULDER SURGERY right TRACHEOSTOMY 07/30/2021 TRACHEOSTOMY N/A 07/30/2021 TRACHEOTOMY performed by Erica Santiago MD at [facility] OR UPPER GASTROINTESTINAL ENDOSCOPY N/A 07/02/2021 EGD ESOPHAGOGASTRODUODENOSCOPY performed by Hari Wagner MD at [facility] Endoscopy FAMILY HISTORY Family History Problem [...] in the care of Ms. Georges . [facility] Palliative Care Number [phone] [facility] Palliative Care Number [phone] [facility] Palliative Care Number [phone] Please call with any palliative questions or [...] with breakfastChris Lassiter MD 1 capsule at 07/24/21 09 [...] Daily Tami Vega MD 325 mg at [Held by provider] calcium carbonate-vitamin D3 (CALTRATE) [...] 5 mL 5 mL Oral Q4H PRN Skylra Morrow MD 5 mL at 07/14/21 1828 dextrose [...] follow up with adult ENT provider in [facility]. Follow-up: Your follow up appointment can be [...] and Dr. Angel Krueger [address] [facility] [place] [address] OPTION 2: [facility] ENT [address] [place] [address], [address] [place] [address] Appointment scheduling: ISRRAEL MCGRATH MD Pediatric Otolaryngology-Head and Neck Surgery [facility] Otolaryngology group Office ph# [phone] Also available in [employer] * Claudine Fisher RCP - 08/04/2021 9:14 [...] Patient's name: Meg Georges Patient's account/billing number: [id number] Patient's Date of : 1965 Age: 56 y.o. Date of Admission: 07/14/2021 4:12 PM Length of stay during current admission: 21 Primary Care Physician: Neri Purcell Sr, DO ICU Attending Physician: Dr. Willoughby [...] no Ulcer prophylaxis: [x] PPI Agent, [] G3Zufnd, [] Sucralfate, [] Other: Glycemic control: controlled; [...] patient was sent to the ED in [facility] from outpatient infusion center whereshe had been [...] INTUBATED, ET TUBE MARKING AT LOWER LIP: [facility] SEDATION: Precedex gtt [] Propofol gtt [] [...] Date 08/04/21 0000 - 08/04/21 2359 Shift 9994-2125 6806-5108 2085-3778 24 Hour Total INTAKE I.V.(mL/kg) 376.1(6) 376.1(6) [...] CO2: 37 (%) Position: Semi-Simon's Humidification Source: [facility] Lab Results Component Value Date PHART 7.406 07/06/2021 DXL3MXN 34.8 07/06/2021 PO2ART 279.0 07/06/2021 WMQ1TEC 21.4 07/06/2021 N2CDVWZC 99.4 07/06/2021 FIO2 30.0 08/03/2021 Lactic Acid: [...] No results for input(s): LABIRON, TIBC, FERRITIN, EEDRERYW21, FOLATE, OCCULTBLD in the last 72 hours. [...] MD Department of Internal Medicine/ Critical care [facility]) 08/04/2021, 8:43 AM Associated attestation - Aniket Padron MD - 08/04/2021 1:39 PM EDT Attending Physician Statement I have discussed the case of Meg Georges, including pertinent history and exam findings with the resident/fellow/medical student/GRINDING SUPERVISOR/PA. I have seen and examined the patient and the coffey elements of the encounter have been performed by me. I agree with the assessment, plan and orders as documented by the resident/fellow/medical student/GRINDING SUPERVISOR/PA With changes made to the note as [...] Padron MD 08/04/2021 1:38 PM * Ashwini Felix, MS, RD, LD - 08/03/2021 1:42 PM EDT Comprehensive Nutrition Assessment Type and Reason for Visit: Reassess Nutrition Recommendations/Plan: 1. Modify TF to: Peptide-based at goal rate 50 mL/hr. Provides 1440 kcal, 90 g PRO. Monitor for tolerance. 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 Weight Source: [...] determine Ashwini Felix MS, ALYSSA, LD Contact: [id number] * REBEKA Wills CNP - 08/03/2021 9:57 [...] Wills CNP Pediatric Otolaryngology-Head and Neck Surgery [facility] Otolaryngology group Office ph# [phone] Also available in PerfectServe * Seth Stokes MD - 08/03/2021 8:39 AM EDT Images from the original note were not included. [facility] -Progress Note Today's Date and Time: [...] placed 07/30/21 per ENT Infection Control Recommendations [place] Precautions Isolate for Covid until 07-23-21 Antimicrobial [...] through 08-20-21. Patient was transferred back to [facility] on 07-14-21 because of a [...] EPIDURAL PHLEGMON performed byAlisia Cevallos DO at [facility] OR CHOLECYSTECTOMY EYE SURGERY [address] shunt for open angle glaucoma. MRI compatible- device is all silicone LAMINECTOMY 07/06/2021 Posterior C1, LEFT C2 RHIZOTOMY, EXPLORATION OF EPIDURAL PHLEGMON PICC INSERTION VASCULAR ACCESS TEAM 07/10/2021 SHOULDER SURGERY right TRACHEOSTOMY 07/30/2021 TRACHEOSTOMY N/A 07/30/2021 TRACHEOTOMY performed by Erica Santiago MD at [facility] OR UPPER GASTROINTESTINAL ENDOSCOPY N/A 07/02/2021 EGD ESOPHAGOGASTRODUODENOSCOPY performed by Hari Wagner MD at [facility] Endoscopy Medications: insulin lispro 0-18 Units [...] Friends and Family: Not on file Attends Adventism Services: Not on file Active Member of [...] following labs: CBC with Differential: Recent Labs 08/02/2145308/03/216 WBC 12.3* 11.9* HGB 8.0* 8.3* HCT 23.5* 24.8* PLT 398 429 LYMPHOPCT 16* 15* MONOPCT 8 8 BMP: Recent Labs 08/01/21 0452 08/01/21 0452 08/02/21 0454 08/03/216 NA 138 < > 137 139 K [...] are unchanged. Suggest ultrasound correlation. Medical Decision Rkhudk-Wtelgvoz-Aubhr: SARS-CoV-2, Rapid COVID-19, Rapid Collected: 07/13/21 0893 Result status: Final Resulting lab: [facility] Reference range: Not Detected Value: [...] this assay. Fact sheet for Healthcare Providers: https://www.fda.gov/media/566284/download Fact sheet for Patients: https://www.fda.gov/media/355865/download Methodology: Isothermal Nucleic Acid Amplification Culture, Respiratory Order: [id number] Status: Final result Visible to patient: No (not released) Next appt: Today at 02:30 PM in Radiology (STV MRI RM 1 (1.5T)) Specimen Information: Sputum Aspirated 0 Result Notes Component 07/24/21 8536 Specimen Description .ASPIRATED SPUTUM Direct Exam < 10 EPITHELIAL CELLS/LPF Direct Exam >25 NEUTROPHILS/LPF Direct Exam MANY GRAM NEGATIVE RODS Abnormal Culture KLEBSIELLA AEROGENES HEAVY GROWTH Abnormal Culture NO NORMAL ROB Resulting Agency [facility] [place] Susceptibility Klebsiella aerogenes (1) [...] data were reviewed Discussed with nursing Staff, logistics planner Infection Control and Prevention measures reviewed All prior entries were reviewed Administer medications as ordered Prognosis: Very Guarded Discharge planning reviewed Follow up as outpatient. Thank you for allowing us to participate in the care of this patient. Please call with questions. Jany Francis, SPORTS TEAM MARKETING INTERN - POLYSOMNOGRAPHIC TECH ATTESTATION: I have discussed the case, including pertinent history and exam findings with the SPORTS TEAM MARKETING INTERN. I have evaluated the History, physical findings and pictures of the patient and the coffey elements of the encounter have been performed by me. I have reviewed the laboratory data, other diagnostic studies and discussed them with the SPORTS TEAM MARKETING INTERN. I have updated the medical record where necessary. I agree with the assessment, plan and orders as documented by the SPORTS TEAM MARKETING INTERN. Seth Stokes MD. Pager: - Office: * Xin Grove MD - 08/03/2021 7:48 AM EDT Images from the original note were not included. Critical Care Team - Daily Progress Note Date and time: 08/03/2021 7:48 AM Patient's name: Meg Georges Patient's account/billing number: [id number] Patient's Date of : 1965 Age: 56 y.o. Date of Admission: 07/14/2021 4:12 PM Length of stay during current admission: 20 Primary Care Physician: Neri Purcell Sr, DO ICU Attending Physician: Dr. Willoughby [...] yes Ulcer prophylaxis: [] PPI Agent, [x] T7Onqmg, [] Sucralfate, [] Other: Glycemic control: high [...] Date 08/03/21 0000 - 08/03/21 2359 Shift 0458-5931 7390-1303 1347-9261 24 Hour Total INTAKE I.V.(mL/kg) 93.8(1.5) 93.8(1.5) [...] CO2: 30 (%) Position: Semi-Simon's Humidification Source: [facility] Lab Results Component Value Date PHART 7.406 07/06/2021 TCB9PFS 34.8 07/06/2021 PO2ART 279.0 07/06/2021 IVK4ITN 21.4 07/06/2021 C0CMZYSS 99.4 07/06/2021 FIO2 30.0 08/03/2021 Lactic Acid: [...] No results for input(s): LABIRON, TIBC, FERRITIN, ADAYEDJH53, FOLATE, OCCULTBLD in the last 72 hours. [...] MD Department of Internal Medicine/ Critical care [facility], [facility]) 08/03/2021, 7:48 AM Associated attestation - Aniket Padron MD - 08/03/2021 3:44 PM EDT Attending Physician Statement I have discussed the case of Meg Georges, including pertinent history and exam findings with the resident/fellow/medical student/GRINDING SUPERVISOR/PA. I have seen and examined the patient and the coffey elements of the encounter have been performed by me. I agree with the assessment, plan and orders as documented by the resident/fellow/medical student/GRINDING SUPERVISOR/PA With changes made to the note as [...] cm^3 Wound Healing % 79 Wound Assessment Dusky;Gu-Win/red;Fibrinous Drainage Amount Scant Drainage Description Serosanguinous Odor [...] Coyle MD Pediatric Otolaryngology-Head and Neck Surgery [facility] Otolaryngology group Office ph# [phone] Also available in [employer] * Seth Stokes MD - 08/02/2021 9:23 AM EDT Images from the original note were not included. [facility] -Progress Note Today's Date and Time: [...] placed 07/30/21 per ENT Infection Control Recommendations [place] Precautions Isolate for Covid until 07-23-21 Antimicrobial [...] through 08-20-21. Patient was transferred back to [facility] on 07-14-21 because of a [...] EPIDURAL PHLEGMON performed byAlisia Cevallos DO at [facility] OR CHOLECYSTECTOMY EYE SURGERY [address] shunt for open angle glaucoma. MRI compatible- device is all silicone LAMINECTOMY 07/06/2021 Posterior C1, LEFT C2 RHIZOTOMY, EXPLORATION OF EPIDURAL PHLEGMON PICC INSERTION VASCULAR ACCESS TEAM 07/10/2021 SHOULDER SURGERY right TRACHEOSTOMY 07/30/2021 TRACHEOSTOMY N/A 07/30/2021 TRACHEOTOMY performed by Erica Santiago MD at [facility] OR UPPER GASTROINTESTINAL ENDOSCOPY N/A 07/02/2021 EGD ESOPHAGOGASTRODUODENOSCOPY performed by Hari Wagner MD at [facility] Endoscopy Medications: insulin lispro 0-18 Units [...] Friends and Family: Not on file Attends Adventism Services: Not on file Active Member of [...] are unchanged. Suggest ultrasound correlation. Medical Decision Gpimfl-Ekhzmijp-Rygdb: SARS-CoV-2, Rapid COVID-19, Rapid Collected: 07/13/21 5422 Result status: Final [facility] Reference [...] this assay. Fact sheet for Healthcare Providers: https://www.fda.gov/media/626908/download Fact sheet for Patients: https://www.fda.gov/media/185055/download Methodology: Isothermal Nucleic Acid Amplification Culture, Respiratory Order: [id number] Status: Final result Visible to patient: No (not released) Next appt: Today at 02:30 PM in Radiology (STV MRI RM 1 (1.5T)) Specimen Information: Sputum Aspirated 0 Result Notes Component 07/24/21 9406 Specimen Description .ASPIRATED SPUTUM Direct Exam < 10 EPITHELIAL CELLS/LPF Direct Exam >25 NEUTROPHILS/LPF Direct Exam MANY GRAM NEGATIVE RODS Abnormal Culture KLEBSIELLA AEROGENES HEAVY GROWTH Abnormal Culture NO NORMAL ROB Resulting Agency [facility] [place] Susceptibility Klebsiella aerogenes (1) Antibiotic Interpretation Microscan [...] data were reviewed Discussed with nursing Staff, logistics planner Infection Control and Prevention measures reviewed All prior entries were reviewed Administer medications as ordered Prognosis: Very Guarded Discharge planning reviewed Follow up as outpatient. Thank you for allowing us to participate in the care of this patient. Please call with questions. Jany Francis, SPORTS TEAM MARKETING INTERN - POLYSOMNOGRAPHIC TECH ATTESTATION: I have discussed the case, including pertinent history and exam findings with the SPORTS TEAM MARKETING INTERN. I have evaluated the History, physical findings and pictures of the patient and the coffey elements of the encounter have been performed by me. I have reviewed the laboratory data, other diagnostic studies and discussed them with the SPORTS TEAM MARKETING INTERN. I have updated the medical record where necessary. I agree with the assessment, plan and orders as documented by the SPORTS TEAM MARKETING INTERN. Seth Stokes MD. Pager: - Office: * Keri Hart MD - 08/02/2021 7:47 AM EDT Critical Care Team - Daily Progress Note Date and time: 08/02/2021 7:50 AM Patient's name: Meg Georges Patient's account/billing number: [id number] Patient's Date of : 1965 Age: 56 y.o. Date of Admission: 07/14/2021 4:12 PM Length of stay during current admission: 19 Primary Care Physician: Neri Purcell Sr, DO ICU Attending Physician: Dr. Willoughby [...] yes Ulcer prophylaxis: [] PPI Agent, [x] M2Opcsc, [] Sucralfate, [] Other: Glycemic control: high insulin Spontaneous breathing trial: no Bowel regimen/urine output: milk of mag Indwelling catheter/lines: yes De-escalation: yes AWAKE & FOLLOWING COMMANDS: [x] No [] Yes CURRENT VENTILATION STATUS: [x] Ventilator [] BIPAP [] Nasal Cannula [] Room Air IF INTUBATED, ET TUBE MARKING AT LOWER LIP: [facility] SEDATION: Fentanyl gtt [x] Propofol gtt [] [...] Date 08/02/21 0000 - 08/02/21 2359 Shift 7143-3977 1186-2525 5511-7931 24 Hour Total INTAKE I.V.(mL/kg) 109.3(1.8) 109.3(1.8) [...] at 08/02/21625 sodium chloride propofol Stopped (08/02/21 0544) fentaNYL 50 mcg/mL Stopped (08/02/21624) dextrose PRN [...] CO2: 32 (%) Position: Semi-Simon's Humidification Source: [facility] Lab Results Component Value Date PHART 7.406 07/06/2021 IBG6OQL 34.8 07/06/2021 PO2ART 279.0 07/06/2021 OIP6PYG 21.4 07/06/2021 T4ZIKDET 99.4 07/06/2021 FIO2 30.0 08/02/2021 Lactic Acid: [...] No results for input(s): LABIRON, TIBC, FERRITIN, SMKAQIKS36, FOLATE, OCCULTBLD in the last 72 hours. [...] MD Department of Internal Medicine/ Critical care [facility], [facility]) 08/02/2021, 7:50 AM Associated attestation - Aniket Padron MD - 08/02/2021 4:40 PM EDT Attending Physician Statement I have discussed the case of Meg Georges, including pertinent history and exam findings with the resident/fellow/medical student/GRINDING SUPERVISOR/PA. I have seen and examined the patient and the coffey elements of the encounter have been performed by me. I agree with the assessment, plan and orders as documented by the resident/fellow/medical student/GRINDING SUPERVISOR/PA With changes made to the note as [...] Coyle MD Pediatric Otolaryngology-Head and Neck Surgery [facility] Otolaryngology group Office ph# [phone] Also available in [employer] * Ashwini Perales, SPORTS TEAM MARKETING INTERN - GRINDING SUPERVISOR - 08/01/2021 11:00 AM EDT Images from [...] will continue to follow. Healthcare power of benefits consultant placed on patient's chart. OVERNIGHT EVENTS: Patient [...] EPIDURAL PHLEGMON performed byAlisia Cevallos DO at [facility] OR CHOLECYSTECTOMY EYE SURGERY [address] shunt for open angle glaucoma. MRI compatible- device is all silicone LAMINECTOMY 07/06/2021 Posterior C1, LEFT C2 RHIZOTOMY, EXPLORATION OF EPIDURAL PHLEGMON PICC INSERTION VASCULAR ACCESS TEAM 07/10/2021 SHOULDER SURGERY right TRACHEOSTOMY 07/30/2021 TRACHEOSTOMY N/A 07/30/2021 TRACHEOTOMY performed by Erica Santiago MD at [facility] OR UPPER GASTROINTESTINAL ENDOSCOPY N/A 07/02/2021 EGD ESOPHAGOGASTRODUODENOSCOPY performed by Hari Wagner MD at [facility] Endoscopy FAMILY HISTORY Family History Problem [...] elevated Bandemia Septic arthritis of cervical spine ([facility]) 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 Georges'jossie care as needed. The note has been dictated by maco, typing errors may be a possibility Thank you for allowing Palliative Care to participate in the care of Ms. Georges . Palliative care number [phone] Please call with any palliative questions or concerns. Palliative Care Team is available via perfect serve or via phone. * Seth Stokes MD - 08/01/2021 9:39 AM EDT Images from the original note were not included. [facility] -Progress Note Today's Date and Time: [...] placed 07/30/21 per ENT Infection Control Recommendations [place] Precautions Isolate for Covid until 07-23-21 Antimicrobial [...] through 08-20-21. Patient was transferred back to [facility] on 07-14-21 because of a [...] EPIDURAL PHLEGMON performed byAlisia Cevallos DO at [facility] OR CHOLECYSTECTOMY EYE SURGERY [address] shunt for open angle glaucoma. MRI compatible- device is all silicone LAMINECTOMY 07/06/2021 Posterior C1, LEFT C2 RHIZOTOMY, EXPLORATION OF EPIDURAL PHLEGMON PICC INSERTION VASCULAR ACCESS TEAM 07/10/2021 SHOULDER SURGERY right TRACHEOSTOMY 07/30/2021 TRACHEOSTOMY N/A 07/30/2021 TRACHEOTOMY performed by Erica Santiago MD at [facility] OR UPPER GASTROINTESTINAL ENDOSCOPY N/A 07/02/2021 EGD ESOPHAGOGASTRODUODENOSCOPY performed by Hari Wagner MD at [facility] Endoscopy Medications: insulin lispro 0-12 Units [...] Friends and Family: Not on file Attends Adventism Services: Not on file Active Member of [...] are unchanged. Suggest ultrasound correlation. Medical Decision Fvaduk-Ctbuilcb-Entaa: SARS-CoV-2, Rapid COVID-19, Rapid Collected: 07/13/21 4749 Result status: Final Resulting lab[facility] Reference range: Not Detected Value: DETECTED [...] this assay. Fact sheet for Healthcare Providers: https://www.fda.gov/media/943763/download Fact sheet for Patients: https://www.fda.gov/media/662527/download Methodology: Isothermal Nucleic Acid Amplification Culture, Respiratory Order: [id number] Status: Final result Visible to patient: No (not released) Next appt: Today at 02:30 PM in Radiology (STV MRI RM 1 (1.5T)) Specimen Information: Sputum Aspirated 0 Result Notes Component 07/24/21 5690 Specimen Description .ASPIRATED SPUTUM Direct Exam < 10 EPITHELIAL CELLS/LPF Direct Exam >25 NEUTROPHILS/LPF Direct Exam MANY GRAM NEGATIVE RODS Abnormal Culture KLEBSIELLA AEROGENES HEAVY GROWTH Abnormal Culture NO NORMAL ROB Resulting Agency [facility] [place] Susceptibility Klebsiella aerogenes (1) Antibiotic [...] data were reviewed Discussed with nursing Staff, logistics planner Infection Control and Prevention measures reviewed All prior entries were reviewed Administer medications as ordered Prognosis: Very Guarded Discharge planning reviewed Follow up as outpatient. Thank you for allowing us to participate in the care of this patient. Please call with questions. Jany Francis, SPORTS TEAM MARKETING INTERN - POLYSOMNOGRAPHIC TECH ATTESTATION: I have discussed the case, including pertinent history and exam findings with the SPORTS TEAM MARKETING INTERN. I have evaluated the History, physical findings and pictures of the patient and the coffey elements of the encounter have been performed by me. I have reviewed the laboratory data, other diagnostic studies and discussed them with the SPORTS TEAM MARKETING INTERN. I have updated the medical record where necessary. I agree with the assessment, plan and orders as documented by the SPORTS TEAM MARKETING INTERN. Seth Stokes MD. Pager: - Office: * Keri Hart MD - 08/01/2021 8:04 AM EDT Critical Care Team - Daily Progress Note Date and time: 08/01/2021 8:07 AM Patient's name: Meg Barton Patient's account/billing number: [id number] Patient's Date of : 1965 Age: 56 y.o. Date of Admission: 07/14/2021 4:12 PM Length of stay during current admission: 18 Primary Care Physician: Neri Purcell Sr, DO ICU Attending Physician: Dr. Willoughby [...] yes Ulcer prophylaxis: [] PPI Agent, [x] T4Ycrdx, [] Sucralfate, [] Other: Glycemic control: medium dose insulin Spontaneous breathing trial: yes Bowel regimen/urine output: milk of mag Indwelling catheter/lines: yes De-escalation: yes AWAKE & FOLLOWING COMMANDS: [x] No [] Yes CURRENT VENTILATION STATUS: [x] Ventilator [] BIPAP [] Nasal Cannula [] Room Air IF INTUBATED, ET TUBE MARKING AT LOWER LIP: [facility] SEDATION: Fentanyl gtt [x] Propofol gtt [] [...] Date 08/01/21 0000 - 08/01/21 2359 Shift 7850-3406 2836-1672 3284-8975 24 Hour Total INTAKE I.V.(mL/kg) 159.6(2.6) 159.6(2.6) [...] CO2: 32 (%) Position: Semi-Simon's Humidification Source: [facility] Lab Results Component Value Date PHART 7.406 07/06/2021 WAG9ARI 34.8 07/06/2021 PO2ART 279.0 07/06/2021 FUZ2TKO 21.4 07/06/2021 O7NEEKXZ 99.4 07/06/2021 FIO2 30.0 07/30/2021 Lactic Acid: [...] hours. Last 3 Blood Glucose: Recent Labs 07/30/214 07/31/2151808/01/21451 GLUCOSE 276* 209* 212* HgBA1c: Lab Results Component Value Date LABA1C 9.4 06/28/2021 TSH: Lab Results Component Value Date TSH 2.06 07/24/2021 ANEMIA STUDIES No results for input(s): LABIRON, TIBC, FERRITIN, YCYDNKLS76, FOLATE, OCCULTBLD in the last 72 hours. [...] MD Department of Internal Medicine/ Critical care [facility]) 08/01/2021, 8:07 AM Associated attestation - Aniket Padron MD - 08/01/2021 7:15 PM EDT Attending Physician Statement I have discussed the case of Meg Georges, including pertinent history and exam findings with the resident/fellow/medical student/GRINDING SUPERVISOR/PA. I have seen and examined the patient and the coffey elements of the encounter have been performed by me. I agree with the assessment, plan and orders as documented by the resident/fellow/medical student/GRINDING SUPERVISOR/PA With changes made to the note as [...] were not included. [facility] -Progress Note Today's Date and Time: [...] placed 07/30/21 per ENT Infection Control Recommendations [place] Precautions Isolate for Covid until 07-23-21 Antimicrobial [...] through 08-20-21. Patient was transferred back to [facility] on 07-14-21 because of a [...] EPIDURAL PHLEGMON performed byAlisia Cevallos DO at [facility] OR CHOLECYSTECTOMY EYE SURGERY [address] shunt for open angle glaucoma. MRI compatible- device is all silicone LAMINECTOMY 07/06/2021 Posterior C1, LEFT C2 RHIZOTOMY, EXPLORATION OF EPIDURAL PHLEGMON PICC INSERTION VASCULAR ACCESS TEAM 07/10/2021 SHOULDER SURGERY right TRACHEOSTOMY 07/30/2021 TRACHEOSTOMY N/A 07/30/2021 TRACHEOTOMY performed by Erica Santiago MD at [facility] OR UPPER GASTROINTESTINAL ENDOSCOPY N/A 07/02/2021 EGD ESOPHAGOGASTRODUODENOSCOPY performed by Hari Wagner MD at [facility] Endoscopy Medications: insulin lispro 0-12 Units [...] Friends and Family: Not on file Attends Adventism Services: Not on file Active Member of [...] are unchanged. Suggest ultrasound correlation. Medical Decision Ericcj-Wvnnpdym-Orncq: SARS-CoV-2, Rapid COVID-19, Rapid Collected: 07/13/21 1256 Result status: Final Resulting lab: [facility] Reference range: Not Detected Value: [...] this assay. Fact sheet for Healthcare Providers: https://www.fda.gov/media/799439/download Fact sheet for Patients: https://www.fda.gov/media/640753/download Methodology: Isothermal Nucleic Acid Amplification Culture, Respiratory Order: [id number] Status: Final result Visible to patient: No (not released) Next appt: Today at 02:30 PM in Radiology (STV MRI RM 1 (1.5T)) Specimen Information: Sputum Aspirated 0 Result Notes Component 07/24/21 1520 Specimen Description .ASPIRATED SPUTUM Direct Exam < 10 EPITHELIAL CELLS/LPF Direct Exam >25 NEUTROPHILS/LPF Direct Exam MANY GRAM NEGATIVE RODS Abnormal Culture KLEBSIELLA AEROGENES HEAVY GROWTH Abnormal Culture NO NORMAL ROB Resulting Agency [facility] Susceptibility Klebsiella aerogenes (1) Antibiotic Interpretation Microscan [...] data were reviewed Discussed with nursing Staff, logistics planner Infection Control and Prevention measures reviewed All prior entries were reviewed Administer medications as ordered Prognosis: Very Guarded Discharge planning reviewed Follow up as outpatient. Thank you for allowing us to participate in the care of this patient. Please call with questions. Jany Francis, SPORTS TEAM MARKETING INTERN - POLYSOMNOGRAPHIC TECH ATTESTATION: I have discussed the case, including pertinent history and exam findings with the SPORTS TEAM MARKETING INTERN. I have evaluated the History, physical findings and pictures of the patient and the coffey elements of the encounter have been performed by me. I have reviewed the laboratory data, other diagnostic studies and discussed them with the SPORTS TEAM MARKETING INTERN. I have updated the medical record where necessary. I agree with the assessment, plan and orders as documented by the SPORTS TEAM MARKETING INTERN. Seth Stokes MD. Pager: - Office: * Nany Emmanuel OT - 07/31/2021 11:29 AM EDT Images from the original note were not included. Occupational Therapy [facility] Occupational Therapy Not Seen Note DATE: 07/31/2021 NAME: Meg Georges : 1965 Patient not seen this date for Occupational Therapy due to: Patient is not appropriate for active participation in OT evaluation/treatment at this time d/t intubation, sedation and not following commands. Next Scheduled Treatment: 08/02/2021 * Sonya Barber, SPORTS TEAM MARKETING INTERN - POLYSOMNOGRAPHIC TECH - 07/31/2021 8:25 AM EDT ENT/OTOLARYNGOLOGY PROGRESS [...] 50 mcg 50 mcg IntraVENous Once Skylar oCyle MD famotidine (PEPCID) 20 mg in sodium chloride (PF) 10 mL injection 20 mg IntraVENous BID Skylar Coyle MD 20 mg at 07/30/211955 propofol injection 5-50 mcg/kg/min IntraVENous Continuous Skylar Coyle MD 5.1 mL/hr at 07/31/21 0724 15 mcg/kg/min at 07/31/21723 sodium chloride flush 0.9 % inject [facility] Work Phone: 1(879) 558-207306-02-2022 Hospital Discharge instructions* Discharge Instr - TEX* Anna Veliz RN - 07/19/2021 1:04 PM EDT Images from the original note were not included. Continuity of Care Form Patient Name: Meg Georges : 1965 Admit date: 07/14/2021 Discharge date: 08/10/2021 Code Status Order: Full Code Advance Directives: Admitting Physician: Aniket Padron MD PCP: Neri Purcell Sr, DO Discharging Nurse: Discharging Hospital Unit/Room#: 3024/3024-01 Discharging Unit Emergency Contact: Extended Emergency Contact Information Primary Emergency Contact: Hina Thomas [facility] Mobile Relation: Brother/Sister Past Surgical History: Past Surgical History: Procedure Laterality Date ACHILLES TENDON SURGERY left BACK SURGERY L 4 and 5 1995, 1996 CERVICAL FUSION N/A 07/06/2021 POSTERIOR CERVICAL C1 LAMINECTOMY. LEFT C2 RHIZOTOMY, EXPLORATION OF EPIDURAL PHLEGMON performed byAlisia Cevallos DO at [facility] OR CHOLECYSTECTOMY EYE SURGERY Baerveldt 250 shunt for open angle glaucoma. MRI compatible- device is all silicone LAMINECTOMY 07/06/2021 Posterior C1, LEFT C2 RHIZOTOMY, EXPLORATION OF EPIDURAL PHLEGMON PICC INSERTION VASCULAR ACCESS TEAM 07/10/2021 SHOULDER SURGERY right TRACHEOSTOMY 07/30/2021 TRACHEOSTOMY N/A 07/30/2021 TRACHEOTOMY performed by Erica Santiago MD at [facility] OR UPPER GASTROINTESTINAL ENDOSCOPY N/A 07/02/2021 EGD ESOPHAGOGASTRODUODENOSCOPY performed by Hari Wagner MD at [facility] Endoscopy Immunization History: There is no [...] Dependent Dressing Dependent Toileting Dependent Feeding Dependent Billing Associate Dependent Med Delivery crushed and via [...] Healing % 79 08/02/21 1537 Wound Assessment Denuded;Gu-Win/red 08/10/21 1200 Drainage Amount Scant 08/10/21 1200 [...] 24 Discharging to Facility/ Agency Name: [facility] Address: [address] [place] [address] Dialysis Facility (if applicable) Name: Address: Dialysis Schedule: Phone: Fax: [employer] Drier/Casting Associate signature: ICIAN SECTION Prognosis: Fair Condition [...] the diagnosis listed and that she requires Group Home Facility for less 30 days. Update Admission [...] PCP as outpatient. documented in this encounterBON [facility] [employer] ([employer]) Work Phone: 1(903) 147-598005-28-2022 History of Present illness Narrative* Kati Villarreal [...] sister, Hina with status. Pt accepted to [facility] pending. documented in this encounterBON Giraffe Friend [facility] [employer] ([employer]) Work Phone: 1(931) 423-646405-24-2022 History of Present illness Narrative* Vic Padilla [...] by urology. Jossie Padilla MD Urology * HOLGER Larson - 07/10/2021 11:14 AM EDT Speech Language Pathology Speech Language Pathology [facility] Cognitive/Dysphagia Treatment Note Date: 07/10/2021 Patient [...] G06.1 Pain: 0/10 Cognitive Treatment Treatment time: 5176-5981 Subjective: [] Alert [x] Cooperative [] Confused [...] recommended at discharge. Completed by Chaitanya Pratt Aircraft General Repair Mechanic Clinician Co-signed byHina Sawyer M.S. CCC/REVENUE STAMP CUTTER * Rufus Argueta MD - 07/10/2021 7:11 AM EDT Images from the original note were not included. [facility] Internal Medicine Teaching Residency Program Inpatient Daily Progress Note Patient: Meg Georges Date of : 1965 Acct: [id number] Room: 0146/0146-01 Admit date: 06/28/2021 Today's date: [...] Argueta MD Internal Medicine Resident, PGY- 1 [facility]; [place], [place] 07/10/2021, 7:18 AM Associated attestation - [...] were not included. [facility] - Infectious diseases evaluation admission date [...] line due to nafciline Infection Control Recommendations [place] Precautions Contact Isolation Antimicrobial Stewardship Recommendations Simplification [...] concern of confusion, they recommended transfer to [facility] for MRI of the brain. BC SA [...] EPIDURAL PHLEGMON performed byAlisia Cevallos DO at [facility] OR CHOLECYSTECTOMY EYE SURGERY Baerveldt 250 shunt for open angle glaucoma. MRI compatible- device is all silicone LAMINECTOMY 07/06/2021 Posterior C1, LEFT C2 RHIZOTOMY, EXPLORATION OF EPIDURAL PHLEGMON SHOULDER SURGERY right UPPER GASTROINTESTINAL ENDOSCOPY N/A 07/02/2021 EGD ESOPHAGOGASTRODUODENOSCOPY performed by Hari Wagner MD at [facility] Endoscopy Medications: levothyroxine 100 mcg Oral [...] Friends and Family: Not on file Attends Adventism Services: Not on file Active Member of [...] CBC with Differential: Recent Labs 07/08/21 0617 07/08/2117 07/08/21 0848 07/09/21 0532 WBC 11.4* -- [...] Crowe MD Office: Perfect serve / office [phone] * Kam Loera, SPORTS TEAM MARKETING INTERN - POLYSOMNOGRAPHIC TECH - 07/09/2021 3:43 PM EDT Neurosurgery NATE/Resident [...] 120 (H) 06/28/2021 Culture, Anaerobic and Aerobic [[id number]] Collected: 07/06/212140 Updated: 07/09/21730 Specimen Type: Swab [...] EDT Speech Language Pathology Speech Language Pathology [facility] Cognitive Treatment Note Date: 07/09/2021 Patient [...] G06.1 Pain: 8/10 Cognitive Treatment Treatment time: 9546-9086 Subjective: [x] Alert [x] Cooperative [] Confused [] Agitated [] Lethargic Objective/Assessment: Recall: Delayed recall; 1/4 increased to 2/4 with min verbal cue, 1/4 increased to 3/4 with min verbal cues Word list retention: Word placement; 3/ increased to 9/ with repetitions Functional memory: Paragraph facts; 3/14 increased to 8/14 with repetitions and min verbal cue Problem Solving/Reasoning: Category members: [place]; 2/8 increased to 4/8 with min-mod verbal [...] No therapy recommended at discharge. Completed by Chaitayna Pratt Aircraft General Repair Mechanic Clinician Co-signed by Hina Sawyer M.S. CCC/REVENUE STAMP CUTTER * Franck Burnham, GREENHOUSE FLORIST - 07/09/2021 10:11 AM EDT Physical Therapy Facility/Department: [address]EP [address] Daily Treatment Note Name: [...] progress notes indicate needs to mobilize . [place] thick liquids. Documentation of vocal cord paralysis. [...] Inpatient Mobility Raw Score : 14 (07/09/21 101) AM-PAC Inpatient T-Scale Score : 38.1 (07/09/211010) [...] from the original note were not included. [facility] Internal Medicine Teaching Residency Program Inpatient Daily Progress Note Patient: Meg Georges Date of : 1965 Acct: [id number] Room: [facility]0146-01 Admit date: 06/28/2021 Today's date: 07/09/21 Number [...] interval not displayed. BMP: Recent Labs 07/07/21 0349 07/08/21 0617 07/09/21 0532 NA 140 138 140 [...] Clark Iglesias MD Internal Medicine Resident, PGY-1 [facility]; [place], [place] 7:13 AM 07/09/2021 Please note that part of this chart was generated using voice recognition dictation software. Although every effort was made to ensure the accuracy of this automated knitted goods shaper, some errors in knitted goods shaper may have occurred. Associated attestation - Johnny [...] when cleared by all services * Kam Lionel Loera, SPORTS TEAM MARKETING INTERN - POLYSOMNOGRAPHIC TECH - 07/08/2021 11:09 AM EDT Neurosurgery NATE/Resident [...] 120 (H) 06/28/2021 Culture, Anaerobic and Aerobic [[id number]] Collected: 07/06/212140 Updated: 07/08/21820 Specimen Type: Swab [...] infection Jose Alfredo Patiño DO Neurosurgery O: [phone] C: [phone] * Edel Chapman, PT - 07/08/2021 9:44 AM EDT Physical Therapy Facility/Department: [address]EP [address] Physical Therapy Reassessment Name: [...] progress notes indicate needs to mobilize . [place] thick liquids. Documentation of vocal cord paralysis. 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 [facility] Score [facility] Inpatient Mobility Raw Score : 14 (07/08/21915) [facility] Inpatient T-Scale Score : 38.1 (07/08/21915) Mobility Inpatient CMS 0-100% Score: 61.29 (07/08/21915) Mobility Inpatient [facility] G-Code Modifier : CL (07/08/21915) Goals [...] from the original note were not included. [facility] Internal Medicine Teaching Residency Program Inpatient Daily Progress Note Patient: Meg Georges Date of : 1965 Acct: [id number] Room: 0146/0146-01 Admit date: 06/28/2021 Today's date: [...] Labs 07/06/21 0752 07/06/21 1641 07/06/21192107/07/21 0349 07/08/21 0617 WBC 7.7 [...] Clark Iglesias MD Internal Medicine Resident, PGY-1 [facility]; [place], [place] 7:24 AM 07/08/2021 Please note that part of this chart was generated using voice recognition dictation software. Although every effort was made to ensure the accuracy of this automated knitted goods shaper, some errors in knitted goods shaper may have occurred. Associated attestation - Johnny [...] were not included. [facility] - Infectious diseases evaluation admission date [...] the rise despite tx Infection Control Recommendations [place] Precautions Contact Isolation Antimicrobial Stewardship Recommendations Simplification [...] concern of confusion, they recommended transfer to [facility] for MRI of the brain. BC SA [...] ESOPHAGOGASTRODUODENOSCOPY performed by Hari Wagner MD at [facility] Endoscopy Medications: sodium chloride flush 5-40 [...] Friends and Family: Not on file Attends Adventism Services: Not on file Active Member of [...] with Differential: Recent Labs 07/06/21 0752 07/06/21 16407/06/21192107/07/21 0349 WBC 7.7 -- -- 11.1 HGB [...] Crowe MD Office: Perfect serve / office [phone] * Andrea Morel APRN - [facility] - 07/07/2021 12:11 PM EDT Neurology [...] who was admitted as a transfer from [facility] ED on 06/28/2021 for AMS. As per medical records, patient was found wandering outside her fpc. She was taken to [facility] ED with acute lethargy and confusion. Patient received Narcan with no improvement. Patient was evaluated by Dr. Helton through telestroke; NIH score was 1. CT head-motion degraded but no obvious acute stroke. Patient was transferred to [facility] for further evaluation. She was [...] ESOPHAGOGASTRODUODENOSCOPY performed by Hari Wagner MD at [facility] Endoscopy PHYSICAL EXAM: Blood pressure (!) [...] TSH 0.15 (L) 06/28/2021 INR 1.2 06/28/2021 [id number] 374 06/28/2016 LABA1C 9.4 (H) 06/28/2021 LABMICR [...] to ensure the accuracy of this automated knitted goods shaper, some errors in knitted goods shaper may have occurred. * REBEKA Uriostegui CNP [...] 120 (H) 06/28/2021 Culture, Anaerobic and Aerobic [[id number]] Collected: 07/06/212140 Updated: 07/06/212331 Specimen Type: Swab [...] Therapies Jose Alfredo Patiño DO Neurosurgery O: [phone] C: [phone] * Rufus Argueta MD - 07/07/2021 7:15 AM EDT Images from the original note were not included. [facility] Internal Medicine Teaching Residency Program Inpatient Daily Progress Note Patient: Meg Georges Date of : 1965 Acct: [id number] Room: [address] [place] [address]- Admit date: 06/28/2021 Today's date: 07/07/21 Number [...] mL, PRN tiZANidine, 2 mg, Q8H PRN vcudapkbqp-tjvvdqobkeeax-vaiwmnqk, 1 tablet, Q4H PRN hydrALAZINE, 10 mg, [...] Labs: CBC: Recent Labs 07/05/21 0517 07/05/21 0507/06/21 0752 07/06/21 07507/06/21 16407/06/21192107/07/21 0349 WBC 10.0 -- 7.7 -- -- [...] not displayed. BMP: Recent Labs 07/05/2151607/05/21 1058 07/06/2175107/06/21164007/06/21192107/07/21 0349 NA 138 -- 133* 140 140 [...] Argueta MD Internal Medicine Resident, PGY- 1 [facility]; [place], [place] 07/07/2021, 7:16 AM Associated attestation - [...] original note were not included. Occupational Therapy [facility] Occupational Therapy Not Seen Note DATE: 07/06/2021 NAME: Meg Georges : 1965 Patient not seen this date for Occupational Therapy due to: Surgery/Procedure: POSTERIOR CERVICAL C1-2 LAMINECTOMY Next Scheduled Treatment: 07/07 * Chaitanya Pratt - 07/06/2021 11:50 AM EDT Speech Language Pathology Speech Language Pathology [facility] Cognitive/Dysphagia Treatment Note Date: 07/06/2021 Patient [...] cues Word list retention: Recall by attribute; /12 increased to 12/12 with repetitions Problem Solving/Reasoning: Word deduction; /12 increased to 12/12 with min verbal cues Category members: [place]; 8/10 increased to 10/10 with min verbal cues Wrong category: [place]; 5/10 increased to 10/10 with repetitions and [...] recommended at discharge. Completed by Chaitanya Pratt Aircraft General Repair Mechanic Clinician Co-signed by Robbie Mckeon M.A.CCC/REVENUE STAMP CUTTER * Meka T Aouad, MD - 07/06/2021 11:03 AM EDT Images from the original note were not included. [facility] - Infectious diseases evaluation admission date [...] the rise despite tx Infection Control Recommendations [place] Precautions Contact Isolation Antimicrobial Stewardship Recommendations Simplification [...] concern of confusion, they recommended transfer to [facility] for MRI of the brain. BC SA [...] 07/06/21 2145 128/72 84 15 99 % 07/06/210 122/64 83 13 100 % 07/06/212114 (!) [...] ESOPHAGOGASTRODUODENOSCOPY performed by Hari Wagner MD at [facility] Endoscopy Medications: sodium chloride flush 5-40 [...] Friends and Family: Not on file Attends Adventism Services: Not on file Active Member of [...] Crowe MD Office: Perfect serve / office [phone] * Jaspal Bonner MD - 07/06/2021 7:56 AM EDT [facility] Neurology IN-PATIENT SERVICE [facility] Progress Note Date: 07/06/2021 Patient name: Meg Georges Date of admission: 06/28/2021 11:59 AM Account: [id number] Date of : 1965 PCP: Neri Purcell Sr, DO Room: [address] [place] [address] Code Status: Full Code Chief Complaint: Chief [...] with CSF studies negative for meningitis or SITE INSPECTOR infection. For her headache she was placed [...] ESOPHAGOGASTRODUODENOSCOPY performed by Hari Wagner MD at [facility] Endoscopy Medications Prior to Admission: Prior [...] On nafcillin -CSF studies are negative for SITE INSPECTOR infection. -Continue Depakene 250mg BID for headache. [...] 7:57 AM Copy sent to Dr. Neri Purcell Sr, DO Associated attestation - Pawan Dutton [...] from the original note were not included. [facility] Internal Medicine Teaching Residency Program Inpatient Daily Progress Note Patient: Meg Georges Date of : 1965 Acct: [id number] Room: [address] [place] [address] Admit date: 06/28/2021 Today's date: 07/06/21 Number [...] mL, PRN tiZANidine, 2 mg, Q8H PRN whotzecpsg-jnfmshwtuizkg-vlyewwxv, 1 tablet, Q4H PRN hydrALAZINE, 10 mg, [...] Argueta MD Internal Medicine Resident, PGY- 1 [facility]; [place], [place] 07/06/2021, 7:41 AM Associated attestation - Jhonny Robledo MD - 07/06/2021 1:45 PM EDT Attending Supervising Physician s Attestation Statement I have seen and examined Megcamilo Georges and the coffey elements of all [...] on IV abx per ID * Mary Acosta, MS, RD, LD - 07/05/2021 3:58 PM EDT Comprehensive Nutrition Assessment Type and Reason for Visit: Initial (Length of stay) Nutrition Recommendations/Plan: 1. Recommend Easy to Chew diet with mildly thick liquids per REVENUE STAMP CUTTER 2. Send Magic Cup ONS with meals Nutrition Assessment: Pt made NPO for MBSS d/t concern for aspiration. REVENUE STAMP CUTTER recommending easy to chew and mildly thick [...] ADULT DIET; Easy to Chew; Mildly Thick ([place]) Anthropometric Measures: Height: 5' 5 (165.1 cm) Enigma Body Weight (IBW): 125 lbs (57 kg) Current Body Weight: 145 lb (65.8 kg), 116 % IBW. Weight Source: Stated Current BMI (kg/m2): 24.1 BMI Categories: Normal Weight (BMI 18.5-24.9) Estimated Daily Nutrient Needs: Energy Requirements Based On: Kcal/kg Weight Used for Energy Requirements: Current Energy (kcal/day): 7734-5441 kcals/day Weight Used for Protein Requirements: Current [...] determine Mary Acosta MS, RD, LD Contact: [phone] * Meka Crowe MD - 07/05/2021 2:14 PM EDT Images from the original note were not included. [facility] - Infectious diseases evaluation admission date [...] the rise despite tx Infection Control Recommendations [place] Precautions Contact Isolation Antimicrobial Stewardship Recommendations Simplification [...] concern of confusion, they recommended transfer to [facility] for MRI of the brain. BC SA [...] ESOPHAGOGASTRODUODENOSCOPY performed by Hari Wagner MD at [facility] Endoscopy Medications: gabapentin 200 mg Oral [...] Friends and Family: Not on file Attends Adventism Services: Not on file Active Member of [...] CBC with Differential: Recent Labs 07/04/21 0316 07/05/21516 WBC 10.4 10.0 HGB 7.4* 7.9* HCT [...] Negrete MD Office: Perfect serve / office [phone] I have discussed the care of the patient, including pertinent history and exam findings, with the resident. I have seen and examined the patient and the coffey elements of all parts of the encounter have been performed by me. I agree with the assessment, plan and orders as documented by the resident. Meka Crowe, Infectious Diseases * Franck Burnham, GREENHOUSE FLORIST - 07/05/2021 1:52 PM EDT Images from [...] from the original note were not included. [facility] Internal Medicine Teaching Residency Program Inpatient Daily Progress Note Patient: Meg Georges Date of : 1965 Acct: [id number] Room: 0146/0146-01 Admit date: 06/28/2021 Today's date: [...] mL, PRN tiZANidine, 2 mg, Q8H PRN aeeobyzdqb-zkbfwhiyvsrge-dhvntczm, 1 tablet, Q4H PRN hydrALAZINE, 10 mg, [...] PRN Diagnostic Labs: CBC: Recent Labs 07/03/2143807/03/2143807/03/21163607/04/2131507/05/21 0517 WBC 13.6* -- -- 10.4 10.0 [...] Vega MD Internal Medicine Resident, PGY- 2 [facility]; [place], [place] 07/05/2021, 10:37 AM Associated attestation - [...] per ID * Sindy Sunshine APRN - POLYSOMNOGRAPHIC TECH - 07/05/2021 10:27 AM EDT Images from [...] with CSF studies negative for meningitis or SITE INSPECTOR infection. For her headache she was placed [...] ESOPHAGOGASTRODUODENOSCOPY performed by Hari Wagner MD at [facility] Endoscopy Social History: Meg Georges reports [...] tested Data: Lab Results: CBC: Recent Labs 07/03/2143807/03/2143807/03/21163607/04/2131507/05/21 0517 WBC 13.6* -- -- 10.4 10.0 HGB 8.4* < > 7.8* 7.4* 7.9* PLT 261 -- -- 231 341 < > = values in this interval not displayed. BMP: Recent Labs 07/03/2143807/03/2143807/03/21163607/04/216 07/05/21 0517 NA 134* -- -- 138 [...] LABA1C 9.4 (H) 06/28/2021 LABMICR 7 06/25/2013 [id number] 374 06/28/2016 Diagnostic data reviewed: CT HEAD [...] of CIDP -CSF studies are negative for SITE INSPECTOR infection -Continue Depakene 250mg BID for headache [...] to ensure the accuracy of this automated knitted goods shaper, some errors in knitted goods shaper may have occurred. 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 Type of Occupation: [employer], [email or web address] Leisure & Hobbies: shopping Additional Comments: Support from sabianism friends, but unsure if she would have [...] Hand Dominance Hand Dominance: Right AM-PAC Score [facility] Inpatient Daily Activity Raw Score: 19 (07/04/211629) [facility] Inpatient ADL T-Scale Score : 40.22 (07/04/211629) ADL Inpatient CMS 0-100% Score: 42.8 (07/04/211629) ADL Inpatient [facility] G-Code Modifier : CK (07/04/211629) Goals Short [...] Minutes: 33 Minutes PAIGE Moreira * Rebeca Osborne, PT - 07/04/2021 4:11 PM EDT Physical Therapy Facility/Department: [address]EP [address] Physical Therapy Initial Assessment [...] pt requiring modA to perform STS from [facility]. 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: [employer], [email or web address] Leisure & Hobbies: shopping Additional Comments: Support from sabianism friends, but unsure if she would have [...] Not formally assessed due to c-spine precautions; vp cardiovascular service line strength WFL Strength LUE Strength LUE: Exception Comment: Not formally assessed due to c-spine precautions; vp cardiovascular service line strength WFL Bed mobility Supine to Sit: Contact guard assistance Sit to Supine: (Did not formally assess- pt retired in restroom upon residential mortgage underwriter's exit) Bed Mobility Comments: Increased time [...] requiring Alejandra donning/ doffing from assistance from residential mortgage underwriter. More Ambulation?: No Stairs/Curb Stairs?: No [...] Minutes: 23 Minutes Rebeca Osborne PT * Robbie Mckeon, HOLGER - 07/04/2021 2:34 PM EDT Speech Language Pathology Speech Language Pathology [facility] Cognitive Treatment Note Date: 07/04/2021 Patient [...] MILL) M86.9 Acute intractable headache R51.9 Pain: 11/26 RN notified. Cognitive Treatment Treatment time: 2:15-2:30 [...] recommended at discharge. Treatment completed by:Chaitanya Pratt Aircraft General Repair Mechanic ROBBIE MCKEON REVENUE STAMP CUTTER, M.A. [facility]-REVENUE STAMP CUTTER * Alisia Cevallos DO - 07/04/2021 2:15 PM EDT Patient's operative note found from care everywhere from Dr.Gloria Elena Washington MD 02/22/2010 from [facility]. Implant is Baerveldt 250 tube shunt, on the left for open angle glaucoma. This is MRI compatible. MRI department will confirm this. * HOLGER Gonzales - 07/04/2021 1:18 PM EDT Speech Language Pathology [facility] Speech Language Pathology Date: 07/04/2021 [...] PM if able, 07/05 Completed by:Chaitanya Pratt Aircraft General Repair Mechanic ROBBIE MCKEON, REVENUE STAMP CUTTER, M.A. [facility]-REVENUE STAMP CUTTER * Gutierrez Sloan MD - 07/04/2021 12:13 [...] Dr. Chilo Mccoy and Dr. Angel Krueger [address] [facility] [address] OPTION 2: [facility] [address] [facility], [address] [place] [address] Appointment scheduling: Other Useful Numbers: [facility] Nurse triage line [phone] (ENT-related questions or concerns, 8am-4pm,Friday through Friday) Gutierrez Sloan MD Pediatric Otolaryngology-Head and Neck Surgery [facility] Otolaryngology group Office ph# [phone] Also available in [employer] * Giulia Bray, REBEKA - [facility] - 07/04/2021 10:06 AM EDT Images from the original note were not included. [facility] - Infectious diseases evaluation admission date [...] patient, RN, Dr. Robledo. Infection Control Recommendations [place] Precautions Contact Isolation Antimicrobial Stewardship Recommendations Simplification [...] concern of confusion, they recommended transfer to [facility] for MRI of the brain. BC SA [...] ESOPHAGOGASTRODUODENOSCOPY performed by Hari Wagner MD at [facility] Endoscopy Medications: lidocaine 1 patch TransDERmal [...] Friends and Family: Not on file Attends Adventism Services: Not on file Active Member of [...] Orellana CNP Office: Perfect serve / office [phone] \ * REBEKA Conte CNP - 07/04/2021 [...] with CSF studies negative for meningitis or SITE INSPECTOR infection. For her headache she was placed [...] ESOPHAGOGASTRODUODENOSCOPY performed by Hari Wagner MD at [facility] Endoscopy Social History: Meg Georges reports [...] Data: Lab Results: CBC: Recent Labs 07/02/21 04107/02/21 1508 07/03/21 0439 07/03/21 1637 07/04/21 0316 [...] LABA1C 9.4 (H) 06/28/2021 LABMICR 7 06/25/2013 [id number] 374 06/28/2016 Diagnostic data reviewed: CT HEAD [...] IVIG sooner -CSF studies are negative for SITE INSPECTOR infection -Continue Depakene 250mg BID for headache -GI is following, patient is s/p EGD with findings suggestive of Alan esophagitis -ID is following; patient remains on antibiotics -Neurosurgery is following; possible myelogram -PT/OT -We will follow Please note that this note was generated using a voice recognition dictation software. Although every effort was made to ensure the accuracy of this automated knitted goods shaper, some errors in knitted goods shaper may have occurred. * Rufus Argueta MD - 07/04/2021 7:05 AM EDT Images from the original note were not included. [facility] Internal Medicine Teaching Residency Program Inpatient Daily Progress Note Patient: Meg Georges Date of : 1965 Acct: [id number] Room: 0146/0146-01 Admit date: 06/28/2021 Today's date: 07/04/21 Number [...] mL, PRN tiZANidine, 2 mg, Q8H PRN kpsbzhtlyk-vcbftopaxkjyn-igzjgssv, 1 tablet, Q4H PRN hydrALAZINE, 10 mg, [...] 0419 07/02/21 1508 07/03/21 0439 07/03/21 1637 07/04/216 WBC 16.7* -- 13.6* -- 10.4 RBC 3.47* -- 3.22* -- 2.79* HGB 9.0* < > 8.4* 7.8* 7.4* HCT 28.2* < > 26.1* 24.2* 22.8* MCV 81.3* -- 81.1* -- 81.7* RDW 16.3* -- 16.5* -- 16.9* PLT 299 -- 261 -- 231 < > = values in this interval not displayed. 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 Date of Eval: [...] hypothyroidism, hyperlipidemia, sleepapnea, who was transferred from [place], after she presented from her fpc for an episode of confusion overnight where she was found wandering outside her fpc. She does not recall the episode very well, complaining of head pain, generalized weakness, weak voice. She had CT head done at outside facility which did not show any acute changes, telestroke was consulted for the concern for confusion, they recommended transfer to [place] for MRI of the brain. Patient has [...] history of two L4-5 lumbar spinesurgeries in 1995/1996 for leg pain, without improvement [...] Further therapy recommended at discharge. Recommendations: Requires REVENUE STAMP CUTTER Intervention: Yes D/C Recommendations: Ongoing speech therapy [...] were not included. [facility] - Infectious diseases evaluation admission date [...] the rise [place]ton[pite tx Infection Control Recommendations [place] Precautions Contact Isolation Antimicrobial Stewardship Recommendations Simplification [...] concern of confusion, they recommended transfer to [facility] for MRI of the brain. BC SA [...] 79 15 100 % EGD 07/02 + aaln esophagitis - starting fluconazole Still neck pain [...] Friends and Family: Not on file Attends Adventism Services: Not on file Active Member of [...] Crowe MD Office: Perfect serve / office [phone] \ * Hodan Kyle - 07/03/2021 10:22 AM EDT Echo completed in echo lab. * Sindy Sunshine, SPORTS TEAM MARKETING INTERN - POLYSOMNOGRAPHIC TECH - 07/03/2021 8:52 AM EDT Images from [...] with CSF studies negative for meningitis or SITE INSPECTOR infection. For her headache she was placed [...] LABA1C 9.4 (H) 06/28/2021 LABMICR 7 06/25/2013 [id number] 374 06/28/2016 Diagnostic data reviewed: CT HEAD [...] CIDP Plan: -CSF studies are negative for SITE INSPECTOR infection -Patient headache is improved with Depacon; [...] to ensure the accuracy of this automated knitted goods shaper, some errors in knitted goods shaper may have occurred. * Rufus Argueta MD - 07/03/2021 5:57 AM EDT Images from the original note were not included. [facility] Internal Medicine Teaching Residency Program Inpatient Daily Progress Note Patient: Meg Georges Date of : 1965 Acct: [id number] Room: [facility]/0146- Admit date: 06/28/2021 Today's date: 07/03/21 Number [...] Daily PRN tiZANidine, 2 mg, Q8H PRN glmevmynvu-fwqtcvmmhowes-jiafczox, 1 tablet, Q4H PRN hydrALAZINE, 10 mg, [...] Argueta MD Internal Medicine Resident, PGY- 1 [facility]; [place], [place] 07/03/2021, 5:58 AM Associated attestation - [...] were not included. [facility] - Infectious diseases evaluation admission date [...] scan to the neck Infection Control Recommendations [place] Precautions Contact Isolation Antimicrobial Stewardship Recommendations Simplification [...] concern of confusion, they recommended transfer to [facility] for MRI of the brain. BC SA [...] Friends and Family: Not on file Attends Adventism Services: Not on file Active Member of [...] Recent Labs 07/01/21 0631 07/01/21 1558 07/01/218 07/02/21418 WBC 12.6* -- -- 16.7* HGB 9.0* < > 8.8* 9.0* HCT 28.4* < > 27.2* 28.2* PLT 284 -- -- 299 LYMPHOPCT 17* -- -- 21* MONOPCT 6 -- -- 4 < > = values in this interval not displayed. BMP: Recent Labs 07/01/21 0631 07/01/21 0631 07/01/21 0845 07/01/218 07/02/2141807/02/21 1015 NA 137 -- -- -- [...] Crowe MD Office: Perfect serve / office [phone] \ * HOLGER Larson - 07/02/2021 11:41 AM EDT Speech Language Pathology [facility] Speech Language Pathology Date: 07/02/2021 [...] as appropriate Completed by: HOLGER Larson, M.S. [facility]-REVENUE STAMP CUTTER * Kenya Liu MD - 07/02/2021 8:22 [...] 0-6 Units SubCUTAneous Nightly PRN Meds include: iompizkxxe-vwafsqycdlzde-mgloijfn, hydrALAZINE, sodium chloride flush, sodium chloride, ondansetron [...] 07/01/21 0631 07/01/21 0631 07/01/21 1558 07/01/218 07/02/21 0419 WBC 12.6* -- -- -- 16.7* HGB 9.0* < > 8.6* 8.8* 9.0* PLT 284 -- -- -- 299 < > = values in this interval not displayed. BMP: Recent Labs 07/01/21 0631 07/01/21 0631 07/01/21 0845 07/01/21155707/02/21 0419 NA 137 -- -- -- 134* [...] LABA1C 9.4 (H) 06/28/2021 LABMICR 7 06/25/2013 [id number] 374 06/28/2016 No results found for: PHENYTOIN, [...] for EGD today. CSF studies negative for SITE INSPECTOR infection. Will continue to follow. Pawan Dutton DO 07/02/2021 3:45 PM * Rufus Argueta MD - 07/02/2021 7:16 AM EDT Images from the original note were not included. [facility] Internal Medicine Teaching Residency Program Inpatient Daily Progress Note Patient: Meg Georges Date of : 1965 Acct: [id number] Room: [address] [place] [address] Admit date: 06/28/2021 Today's date: 07/02/21 Number [...] at 07/01/21 0600 sodium chloride dextrose PRN Gfvmkbipkkvgxhholhnvd-kcwrhjcgchkvs-letrpoes, 1 tablet, Q4H PRN hydrALAZINE, 10 mg, [...] 0419 WBC 12.6* -- -- -- 16.7* RBC [...] Argueta MD Internal Medicine Resident, PGY- 1 [facility]; [place], [place] 07/02/2021, 7:16 AM Associated attestation - [...] history and exam findings with the resident/ POLYSOMNOGRAPHIC TECH. I have seen and examined the patient and the coffey elements of the encounter have been performed by me. I agree with the assessment, plan and orders as documented by the resident or POLYSOMNOGRAPHIC TECH with changes made to the note. Briefly, [...] 0-6 Units SubCUTAneous Nightly PRN Meds include: afpaecryjq-yjqvtrftgbqpx-wugstabh, hydrALAZINE, sodium chloride flush, sodium chloride, ondansetron [...] LABA1C 9.4 (H) 06/28/2021 LABMICR 7 06/25/2013 [id number] 374 06/28/2016 Impression and Plan: Ms. Meg [...] Weldon MD - 07/01/2021 11:06 AM EDT [facility] Neurology IN-PATIENT SERVICE [facility] Progress note Date: 07/01/2021 Patient name: Meg Georges Date of admission: 06/28/2021 11:59 AM Account: [id number] Date of : 1965 PCP: Neri Purcell Sr, DO Room: [address] [place] [address] Code Status: Full Code Chief Complaint: Chief [...] panel 06/28/21 Total cholesterol 155, LDL 63 [id number]-7.4 this admission CSF studies 06/28/21 Oligoclonal banding [...] # 2.14 1.0 - 4.8 k/uL Absolute [place] # 0.76 0.1 - 0.8 k/uL Absolute [...] 11:07 AM Copy sent to Dr. Neri Purcell, Sr, DO Associated attestation - Jenifer Jewell MD - 07/02/2021 12:09 PM EDT Patient is seen on 07/01/21 Attending Physician Statement I have discussed the case of Meg Georges including pertinent history and exam findings with the resident/ POLYSOMNOGRAPHIC TECH. I have seen and examined the patient and the coffey elements of the encounter have been performed by me. I agree with the assessment, plan and orders as documented by the resident or POLYSOMNOGRAPHIC TECH with changes made to the note. Briefly, [...] SubCUTAneous Nightly PRN Meds include: PRN Medications scfmcghgjf-ntbzrtkrrnhns-nvefhrvk, hydrALAZINE, sodium chloride flush, sodium chloride, ondansetronOR [...] Lab Results: CBC: Recent Labs 06/29/2135006/29/2135006/30/21 0909 06/30/21212807/01/21 0631 WBC 15.0* -- -- [...] LABA1C 9.4 (H) 06/28/2021 LABMICR 7 06/25/2013 [id number] 374 06/28/2016 Impression and Plan: Ms. Meg [...] from the original note were not included. [facility] Internal Medicine Teaching Residency Program Inpatient Daily Progress Note Patient: Meg Georges Date of : 1965 Acct: [id number] Room: [facility]/0146-01 Admit date: 06/28/2021 Today's date: 07/01/21 Number [...] at 07/01/21 0600 sodium chloride dextrose PRN Qifoitnkrhvkvasqvtkyx-xvyskbyljsdrl-rzkwonah, 1 tablet, Q4H PRN hydrALAZINE, 10 mg, [...] Labs: CBC: Recent Labs 06/28/21 1212 06/28/21 12106/29/2135006/29/2135006/30/2190806/30/21212807/01/21 0631 WBC 22.0* -- 15.0* -- -- [...] interval not displayed. BMP: Recent Labs 06/28/21 12106/29/2135007/01/21 0631 NA 135 137 137 K 4.0 [...] Argueta MD Internal Medicine Resident, PGY- 1 [facility]; [place], [place] 07/01/2021, 7:33 AM Associated attestation - [...] were not included. [facility] - Infectious diseases evaluation Progress Note [...] object in her eyes Infection Control Recommendations [place] Precautions Antimicrobial Stewardship Recommendations Simplification of therapy [...] concern with confusion, they recommended transfer to [facility] for MRI of the brain. BC: Staph [...] Friends and Family: Not on file Attends Adventism Services: Not on file Active Member of [...] Stokes MD Office: Perfect serve / office [phone] * Rosalinda Alvarado, SPORTS TEAM MARKETING INTERN - POLYSOMNOGRAPHIC TECH - 07/01/2021 6:49 AM EDT [facility] Progress Note Meg Georges [...] Stopped (07/01/21 0427) sodium chloride dextrose PRN Meds:yqqarbxrkn-okgyysmbghovj-wynbabmb, hydrALAZINE, sodium chloride flush, sodium chloride, ondansetron OR ondansetron, acetaminophen OR acetaminophen, potassium chloride OR potassium alternative oral replacement OR potassium chloride, bisacodyl, sodium chloride flush, labetalol, glucose, dextrose bolus OR dextrose bolus, glucagon (rDNA), dextrose Data Review: LABS and IMAGING: CBC Recent Labs 05/02/08 121206/29/21 0351 06/30/21 0909 06/30/219 WBC 22.0* 15.0* -- -- HGB 10.0* 9.9* 9.8* 9.4* HCT 31.0* 30.0* 31.3* 29.3* MCV 83.3 80.4* -- -- MCHC 32.3 33.0 -- -- RDW 16.1* 16.1* -- -- PLT 379 380 -- -- Immature PLTs No results found for: PLTFLUORE ANEMIA STUDIES No results for input(s): LABIRON, TIBC, IRON, FERRITIN, XGAGTDLV26, FOLATE, OCCULTBLD in the last 72 hours. [...] of your patient. Rosalinda Alvarado APRN - POLYSOMNOGRAPHIC TECH on 07/01/2021 at 6:50 AM [facility] Please note that this note was generated using a voice recognition dictation software. Although every effort was made to ensure the accuracy of this automated knitted goods shaper, some errors in knitted goods shaper may have occurred. Associated attestation - Hari Wagner MD - 07/01/2021 11:00 AM EDT Attending Physician Statement I have seen, examined and discussed the care of Meg Georges, including pertinent history and exam findings, with the POLYSOMNOGRAPHIC TECH. I agree with the assessment, plan and orders as documented by the POLYSOMNOGRAPHIC TECH. * Ganga Archuleta - 06/30/2021 8:04 PM EDT SPIRITUAL CARE DEPARTMENT - [facility] Shift date: 06/30/21 Shift day: Friday Shift # 2 Room # 0146/0146-01 Name: Meg Georges Age: 56 y.o. Gender: female Islam: Yarsanism Place of anglican: Referral: Routine Visit Admit Date & Time: 06/28/2021 11:59 AM PATIENT/EVENT DESCRIPTION: Meg Georges is a 56 y.o. female SPIRITUAL ASSESSMENT/INTERVENTION: Patient appeared to welcome it coordinator presence. Patient engaged in conversation and stated she had lost her voice. Operating Table Assembler was a ministry of presence and offered prayer for spiritual comfort/support.Patient accepted prayer and expressed gratitude for visit. SPIRITUAL CARE FOLLOW-UP PLAN: Chaplains will remain available to offer spiritual and emotional support as needed. . Spiritual Care Department [facility] [phone] * Jonathan Steve MD - 06/30/2021 12:56 PM EDT Images from the original note were not included. [facility] Internal Medicine Teaching Residency Program Inpatient Daily Progress Note Patient: Meg Georges Date of : 1965 Acct: [id number] Room: [address] [place], [place] [address]- Admit date: 06/28/2021 Today's date: 06/30/21 Number [...] Stopped (06/30/21 0408) sodium chloride dextrose PRN Zivmuxymzpwiqjcobacbj-svveqgajbdeik-azoqcjpe, 1 tablet, Q4H PRN hydrALAZINE, 10 mg, [...] Steve MD Internal Medicine Resident, PGY- 2 [facility]; [place], [place] 06/30/2021, 12:56 PM Associated attestation - [...] Take 112 mcg by mouth Daily Allergies: Mge Georges is allergic to moxifloxacin, peg 3350-electrolytes, [...] 0-6 Units SubCUTAneous Nightly PRN Meds include: ytpqgptzyg-udoobhznxcahs-ocmqrdhy, hydrALAZINE, sodium chloride flush, sodium chloride, ondansetron [...] this interval not displayed. BMP: Recent Labs 06/28/2140906/28/212 06/29/21 0351 NA 138 135 137 K [...] LABA1C 9.4 (H) 06/28/2021 LABMICR 7 06/25/2013 [id number] 374 06/28/2016 Impression and Plan: Ms. Meg [...] Jenifer Jewell MD 06/30/2021 11:45 AM * Leeann Elder, HOLGER - 06/30/2021 8:58 AM EDT Speech Language Pathology Facility/Department: [facility] 1C STEP DOWN Initial Speech/Language/Cognitive Assessment [...] Date of Eval: 06/30/2021 Evaluating Therapist: Leeann Elder REVENUE STAMP CUTTER RECENT RESULTS CT OF HEAD/MRI: CT Head [...] chronic IVIG every 2 weeks, transferred from [place] for further neurological evaluation. She was allegedly [...] any ENT evaluation Diagnosis: Dysphonia Recommendations: Requires REVENUE STAMP CUTTER Intervention: Yes D/C Recommendations: To be determined [...] were not included. [facility] - Infectious diseases evaluation Progress Note [...] object in her eyes Infection Control Recommendations [place] Precautions Antimicrobial Stewardship Recommendations Simplification of therapy [...] concern with confusion, they recommended transfer to [facility] for MRI of the brain. BC: Staph [...] Friends and Family: Not on file Attends Adventism Services: Not on file Active Member of [...] Stokes MD Office: Perfect serve / office [phone] * Mini Fitzgerald RN - 06/29/2021 6:[address] Crowe phoned residential mortgage underwriter with new order d/c MRI d/t unknown foreign object in patients eyes. New order for bone scan for cervical spine,look for osteomyelitis. * Ashwini Mendoza - 06/29/2021 2:49 PM EDT EEG completed * HOLGER Gonzales - 06/29/2021 1:37 PM EDT Speech Language Pathology [facility] Speech Language Pathology Date: 06/29/2021 [...] by: Chaitanya Pratt Graduate Clinician ROBBIE MCKEON, REVENUE STAMP CUTTER, M.A. [facility]-REVENUE STAMP CUTTER * David Donnelly RPH - 06/29/2021 9:15 AM EDT [facility] Pharmacokinetic Monitoring [...] for the consult, David Donnelly PharmCarrolD., [place], [facility] 06/29/2021 9:15 AM * Kishor Her MD [...] No nausea, vomiting, diarrhea. Genitourinary: No increa [facility] Work Phone: 1(190) 153-578105-24-2022 Hospital Discharge instructions* Discharge Instr - TEX* Sebas Arnold RN - 07/10/2021 7:52 AM EDT Continuity of Care Form Patient Name: Meg Georges : 1965 Admit date: 06/28/2021 Discharge date: 07/10/2021 Code Status Order: Full Code Advance Directives: Admitting Physician: Silver Carmona MD PCP: Neri Purcell Sr, DO Discharging Nurse: Thierry Discharging Hospital Unit/Room#: 0146/0146-01 Discharging Unit Phone Number: [phone] Emergency Contact: Extended Emergency Contact Information Primary Emergency Contact: Hina Thomas [facility] Mobile Relation: Brother/Sister Past Surgical History: Past Surgical History: Procedure Laterality Date ACHILLES TENDON SURGERY left BACK SURGERY L 4 and 5 1995, 1996 CERVICAL FUSION N/A 07/06/2021 POSTERIOR CERVICAL C1 LAMINECTOMY. LEFT C2 RHIZOTOMY, EXPLORATION OF EPIDURAL PHLEGMON performed byAlisia Cevallos DO at [facility] OR CHOLECYSTECTOMY EYE SURGERY [address] shunt for open angle glaucoma. MRI compatible- device is all silicone LAMINECTOMY 07/06/2021 Posterior C1, LEFT C2 RHIZOTOMY, EXPLORATION OF EPIDURAL PHLEGMON SHOULDER SURGERY right UPPER GASTROINTESTINAL ENDOSCOPY N/A 07/02/2021 EGD ESOPHAGOGASTRODUODENOSCOPY performed by Hari Wagner MD at [facility] Endoscopy Immunization History: There is no [...] - PICC - site {Anatomy; iv placement site:80806}, insertion date: 07/10/2021 Nursing Mobility/ADLs: Walking Assisted Transfer Assisted Bathing Assisted Dressing Assisted Toileting Assisted Feeding Assisted Billing Associate Assisted Med Delivery crushed Wound Care [...] completed shifts: In: 9447.3 [P.O.:300; I.V.:7386.3; IV Piggyback:1760] Out: 1944 [Urine:1939; Drains:5] Safety Concerns: History of Falls (last 30 days) and At Risk for Falls Impairments/Disabilities: Speech Nutrition Therapy: Current Nutrition Therapy: - Oral Diet: General and Dysphagia 2 mechanically altered Routes of Feeding: Oral Liquids: [place] Thick Liquids Daily Fluid Restriction: no Last [...] DME order): wheelchair and walker Other Treatments: Group Home Assessment Patient's personal belongings (please select all that are sent with patient): Glasses RN SIGNATURE: CASE MANAGEMENT/SOCIAL WORK SECTION Inpatient Status Date: Readmission Risk Assessment Score: Readmission Risk Risk of Unplanned Readmission: 23 Discharging to Facility/ Agency [facility] Services Available Group Home Address [address] [facility] [address] Contact Information [phone] Dialysis Facility (if applicable) Name: Address: Dialysis Schedule: Phone: Fax: [employer]/Casting Associate signature: PHYSICIAN SECTION Prognosis: Good Condition [...] the diagnosis listed and that she requires Group Home Facility for less 30 days. Update Admission [...] any urinary retention [facility] [employer] Phone: 1(988) 385-205605-12-2022 History of Present illness Narrative* Vesta Barlow RN - 06/28/2021 7:24 AM EDT Updated sister, Hina. States will be in. * Kati Villarreal RN - 06/28/2021 4:25 AM EDT This nurse called and spoke with Rachel (nurse) at [place] to get an updated med list. Rachel [...] because she was vomiting. documented in this encounterPromed[facility] HospitalCap[facility] [place] Phone: 1(121) 127-328203-25-2022 History of Present illness Narrative* Sania Johnson DO - 05/11/2021 1:30 PM EDT The patient tolerated the infusion well without any complications. documented in [facility]Martin [facility]03-15-2022 Instructions* Patient Instructions* Tia Baugh PA-C [...] Care Everywhere. * Staph Infection: General Info (Ghanaian) * Moise (Ghanaian) documented in this [id number] History of Present illness Narrative* Tia Baugh PA-C - 05/01/2021 3:09 PM EDT PATIENT NAME: Meg Joaquin [facility] URGENT CARE: [address] [facility] [address] DATE OF VISIT: 05/01/2021 DATE OF : [...] without toes, left 01/26/2019 Asthma Atherosclerosis of [place] arteries of left leg with ulceration of [...] leg with muscle involvement without evidenceof necrosis ([facility]) [...] for this visit. -Aerobic culture of the lcwwhdic-jmtj-kjs from the small finger of the right hand -Doxycycline 100 mg twice daily for 7 days -Mupirocin ointment to be applied 3 times daily to the affected area and a light layer -I have contacted Dr. Stanley's office in [place] and hoping to schedule a follow- up visit with Dr. Stanley for further evaluation of the patient's hand. Tia Baugh 05/01/2021 documented in this [id number] History of Present illness Narrative* Jef Sierra [...] character of her wounds documented in this [id number] NoteProcedure date: 04/12/2021. Intraocular injection: 1.25 mg Bevacizumab (AVASTIN) 2.5mg/0.[address] [facility]: 35614-404-92, Lot: [id number], Expiration date: 06/10/2021 Route: Intravitreal, Site: Right Eye Notes Bevacizumab (Avastin) Intraocular Injection Right Eye - OPHTHALMOLOGY PROCEDURE NOTE PROCEDURE PERFORMED BY: Sharon Hernandez MD HOB MILL OPERATOR(S): None ATTENDING: Sharon Hernandez MD PROCEDURE DATE: 04/12/2021 PROCEDURE START TIME: 10:47 AM INDICATIONS: Treatment of ICD-10-CM 1. 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 Yes. [place] Protocol is required. Pre-procedure verification was completed. [...] sterile saline and an antibiotic drop was instilled.[facility]02-17-2022 NoteProcedure date: 04/05/2021. Intraocular injection: 1.25 mg Bevacizumab (AVASTIN) 2.5mg/0.[address] [facility]: 82273-792-85, Lot: [id number], Expiration date: 05/01/2021 Route: Intravitreal, Site: Left Eye Notes Bevacizumab (Avastin) Intraocular Injection Left Eye - OPHTHALMOLOGY PROCEDURE NOTE PROCEDURE PERFORMED BY: Sharon Hernandez MD HOB MILL OPERATOR(S): None ATTENDING: Sharon Hernandez MD PROCEDURE DATE: 04/05/2021 PROCEDURE START TIME: 11:15 AM INDICATIONS: Treatment of ICD-10-CM 1. 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 Yes. [place] Protocol is required. Pre-procedure verification was completed. [...] sterile saline and an antibiotic drop was instilled.[facility]02-08-2022 History of Present illness Narrative * Jef [...] character of her wounds documented in this [id number] Instructions* Patient Instructions* Jef Sierra Jr., DPM - 02/20/2021 10:07 AM EST Continue topical antibiotic ointment and bandaid with padding. documented in this [id number] History of Present illness Narrative* Jef Sierra [...] without toes, left 01/26/2019 Asthma Atherosclerosis of [place] arteries of left leg with ulceration of [...] leg with muscle involvement without evidenceof necrosis ([facility]) [...] clean dry and intact tran[facility]ion [facility] with Pegassist -Follow-up in 2 weeks to review. documented in this [id number] NoteProcedure date: 02/14/2021. Right Eye Clear. Disc [...] better. Recommendation for management is to continue treatment.[facility]12-29-2021 Note Procedure date: 02/14/2021. Intraocular injection: 1.25 mg Bevacizumab (AVASTIN) 2.5mg/0.[address] [facility]: 05738-499-89, Lot: [id number], Expiration date: 03/07/2021 Route: Intravitreal, Site: Right Eye Notes Bevacizumab (Avastin) Intraocular Injection Right Eye - OPHTHALMOLOGY PROCEDURE NOTE PROCEDURE PERFORMED BY: Sharon Hernandez MD HOB MILL OPERATOR(S): None ATTENDING: Sharon Hernandez MD PROCEDURE DATE: 02/14/2021 PROCEDURE START TIME: 10:25 AM INDICATIONS: Treatment of ICD-10-CM 1. 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 Yes. [place] Protocol is required. Pre-procedure verification was completed. [...] sterile saline and an antibiotic drop was instilled.[facility]12-27-2021 NoteProcedure date: 02/12/2021. Intraocular injection: 1.25 mg Bevacizumab (AVASTIN) 2.5mg/0.1 ML syringe ND: 41878-918-63, Lot: [id number], Expiration date: 03/01/2021 Route: Intravitreal, Site: Left Eye Notes Bevacizumab (Avastin) Intraocular Injection Left Eye - OPHTHALMOLOGY PROCEDURE NOTE PROCEDURE PERFORMED BY: Sharon Hernandez MD HOB MILL OPERATOR(S): None ATTENDING: Sharon Hernandez MD PROCEDURE DATE: 02/12/2021 PROCEDURE START TIME: 10:46 AM INDICATIONS: Treatment of ICD-10-CM 1. Diabetic macular edema E11.311 bevacizumab 1.25 MG/0.05 ML Solution [place] BEVACIZUMAB SOLN - OS [place] BEVACIZUMAB SOLN - OS EYE: Left (OS) [...] THIS PROCEDURE REQUIRE A UNIVERSAL PROTOCOL? Yes. [place] Protocol is required. Pre-procedure verification was completed. [...] sterile saline and an antibiotic drop was instilled.[facility]12-21-2021 History of Present illness Narrative * Jef Sierra Jr., DPM - 2021 11:32 AM EST HPI Chief [...] without toes, left 01/26/2019 Asthma Atherosclerosis of [place] arteries of left leg with ulceration of [...] leg with muscle involvement without evidenceof necrosis ([facility]) [...] 2 weeks to review. documented in this [id number] History of Present illness Narrative* Jef Sierra [...] without toes, left 01/26/2019 Asthma Atherosclerosis of [place] arteries of left leg with ulceration of [...] leg with muscle involvement without evidenceof necrosis ([facility]) [...] clean dry and intact tran[facility]ion back to [facility] with Pegassist -Follow-up in 1 weeks to review. documented in this [id number] Instructions* Patient Instructions* Jef Sierra Jr., DPM - 01/30/2021 10:50 AM EST Continue ashu at home documented in this [id number] History of Present illness Narrative* Jef Sierra [...] without toes, left 01/26/2019 Asthma Atherosclerosis of [place] arteries of left leg with ulceration of [...] leg with muscle involvement without evidenceof necrosis ([facility]) [...] 1 weeks to review. documented in this [id number] History of Present illness Narrative* Jef Sierra [...] without toes, left 01/26/2019 Asthma Atherosclerosis of [place] arteries of left leg with ulceration of [...] 1 weeks to review. documented in this [id number] Instructions* Patient Instructions* Jef Sierra Jr., DPM - 01/16/2021 11:27 AM EST Keep bandage clean dry and intat documented in this [id number] History of Present illness Narrative* Jef Sierra [...] without toes, left 01/26/2019 Asthma Atherosclerosis of [place] arteries of left leg with ulceration of [...] leg with muscle involvement without evidenceof necrosis ([facility]) [...] 1 weeks to review. documented in this [id number] Instructions* Patient Instructions* Jef Sierra Jr., DPM - 01/09/2021 8:49 AM EST Keep bandage clean dry and intact documented in this [id number] Instructions* Patient Instructions* Jef Sierra Jr., DPM - 01/02/2021 9:19 AM EST Keep bandages clean dry and intact for week documented in this [id number] History of Present illness Narrative* Jef Sierra [...] without toes, left 01/26/2019 Asthma Atherosclerosis of [place] arteries of left leg with ulceration of [...] leg with muscle involvement without evidenceof necrosis ([facility]) [...] 1 weeks to review. documented in this [id number] NoteProcedure date: 12/27/2020. Intraocular injection: 1.25 mg Bevacizumab (AVASTIN) 2.5mg/0.1 ML syringe ND: 10535-014-96, Lot: [id number], Expiration date: 12/29/2020 Route: Intravitreal, Site: Left Eye Notes Bevacizumab (Avastin) Intraocular Injection Left Eye - OPHTHALMOLOGY PROCEDURE NOTE PROCEDURE PERFORMED BY: Sharon Hernandez MD HOB MILL OPERATOR(S): None ATTENDING: Sharon Hernandez MD PROCEDURE DATE: 12/27/2020 PROCEDURE START TIME: 10:17 AM INDICATIONS: Treatment of ICD-10-CM 1. Diabetic macular edema E11.311 OCT/HRT MAC[place]A OU FUNDUS PHOTOGRAPHY-OU [place] BEVACIZUMAB SOLN - OS [place] BEVACIZUMAB SOLN - OS CANCELED: [place] BEVACIZUMAB SOLN - OD EYE: Left (OS) [...] THIS PROCEDURE REQUIRE A UNIVERSAL PROTOCOL? Yes. [place] Protocol is required. Pre-procedure verification was completed. [...] sterile saline and an antibiotic drop was instilled.[facility]11-10-2021 NoteProcedure date: 12/27/2020. Right Eye Clear. Disc [...] better. Recommendation for management is to continue treatment.[facility]11-02-2021 Instructions* Patient Instructions* Jef Sierra Jr., DPM - 12/19/2020 11:28 AM EDT Keep bandage clean dry and intact documented in this [id number] History of Present illness Narrative* Jef Sierra [...] without toes, left 01/26/2019 Asthma Atherosclerosis of [place] arteries of left leg with ulceration of [...] leg with muscle involvement without evidenceof necrosis ([facility]) [...] Friends and Family: Not on file Attends Adventism Services: Not on file Active Member of [...] 1 weeks to review. documented in this [id number] NoteProcedure date: 12/13/2020. Right Eye Clear. Disc [...] same. Recommendation for management is to continue treatment.[facility]10-27-2021 Note Procedure date: 12/13/2020. Right Eye Quality was good. Findings include subretinal fluid. Interval change is same. Recommendation for management is to continue treatment. Left Eye Quality was good. Findings include subretinal fluid. Interval change is same. Recommendation for management is to continue treatment.[facility]10-27-2021 NoteProcedure date: 12/13/2020. Intraocular injection: 1.25 mg Bevacizumab (AVASTIN) 2.5mg/0.[address] [facility]: 35735-621-72, Lot: [id number], Expiration date: 12/26/2020 Route: Intravitreal, Site: Right Eye Notes Bevacizumab (Avastin) Intraocular Injection Right Eye - OPHTHALMOLOGY PROCEDURE NOTE PROCEDURE PERFORMED BY: Sharon Hernandez MD HOB MILL OPERATOR(S): None ATTENDING: Sharon Hernandez MD PROCEDURE DATE: 12/13/2020 PROCEDURE START TIME: 10:05 AM INDICATIONS: Treatment of ICD-10-CM 1. Diabetic macular edema E11.311 bevacizumab 1.25 MG/0.05 ML Solution [place] BEVACIZUMAB SOLN - OD OCT/HRT [place] OU FUNDUS PHOTOGRAPHY-OU [place] BEVACIZUMAB SOLN - OD OCT/HRT [place] OU [...] THIS PROCEDURE REQUIRE A UNIVERSAL PROTOCOL? Yes. [place] Protocol is required. Pre-procedure verification was completed. [...] sterile saline and an antibiotic drop was instilled.[facility]08-31-2021 History of Present illness Narrative * Jef [...] as wellas elevated morbidity. documented in this [id number] NoteProcedure date: 10/10/2020. Right Eye Quality was good. Interval change is same. Recommendation for management is to change treatment. Left Eye Quality was poor. Interval change is same. Recommendation for management is to change treatment. Notes OD: inferior thinning, stable to 2019 OS: polar thinning, stable to 2019 GCC: OD: stable inferotemporal thinning OS: complicated by poor quality scan due to [id number] History of Present illness Narrative* Olga Lidia [...] all questions answered Olga Lidia Matos M.D. Mental Health Worker of Ophthalmology Glaucoma Division [facility] [place] [facility] Department of Ophthalmology and Visual Science [...] OS with Dr. Hernandez. Additional details from [facility] HPI reviewed and I agree with documentation Ocular Medications: 10/10/2020 Exam: CCT: OB=708 m; QC=375 m IOP: OD: 25, OS: 16, 10/10/2020 [...] time was spent with patient performing the retail merchandiser technician work of this visit. [facility] Instructions* Patient Instructions* Olga Lidia Matos MD - 10/10/2020 1:45 PM EDT Right Eye: Dorzolamide/Timolol 2 times a day Rhopressa 1 drop at bedtime Left Eye: Dorzolamide/Timolol 2 times a day [facility] History of Present illness Narrative* Jovon L Freimer, MD - 10/03/2020 9:30 AM EDT I was available on site at [facility] for any urgent infusion issues. Jovon Bowers MD Professor of Neurology Director, Neuromuscular Division documented in [facility] History of Present illness Narrative* Franck [...] UNIT/ML Solution Pen-injector injection, 3 samples given--Lot [id number], exp 10/2021, Disp: 3 Prefilled Pen/Syringe, Rfl: 0 Insulin Lispro, 1 Unit Dial, 100 UNIT/ML Solution Pen-injector, Use less than 30 units daily with sliding scale., Disp: 5 Prefilled Pen/Syringe, Rfl: 3 Multiple Vitamin (MULTI-DAY PO), take 1 tablet by mouth daily.., Disp: , Rfl: tiZANidine 4 MG Tab tablet, tiZANidinetiZANidine (ZANAFLEX) 4 MG tablet as needed. Lolly Haq [facility] ([id number]), Disp: , Rfl: acetaZOLAMIDE 250 MG tablet, Take 1 tablet by mouth 2 times daily. 90 day supply (Patient not taking: Reported on 09/13/2020), Disp: 180 tablet, Rfl: 1 cyanocobalamin 1000 MCG Tab, Take 2 tablets by mouth daily., Disp: 60 tablet, Rfl: 11 Insulin Degludec (Tresiba FlexTouch) 100 UNIT/ML Solution Pen-injector injection, 3 Samples given [id number], Exp 10/2021 (Patient not taking: Reported on 09/26/2020), Disp: 9 mL, Rfl: 0 Insulin Lispro, 1 Unit Dial, (HumaLOG KwikPen) 100 UNIT/ML Solution Pen- injector, Sample given [id number], exp 09/2022 (Patient not taking: Reported on 09/13/2020), Disp: 1 Prefilled Pen/Syringe, Rfl: 0 Insulin Lispro, 1 Unit Dial, (HumaLOG KwikPen) 100 UNIT/ML Solution Pen- injector, Sample given [id number], Exp-09/2022 (Patient not taking: Reported on 09/26/2020), [...] Social Gatherings with Friends and Family: Attends Adventism Services: Active Member of Clubs or Organizations: Attends Club or Organization Meetings: Marital Status: Intimate Partner Violence: Fear of Current or Ex-Partner: Emotionally Abused: Physically Abused: Sexually Abused: documented in this [facility]08-10-2021 Instructions* Patient Instructions* Franck Mtz MD [...] your results come back. documented in this [facility]08-05-2021 History of Present illness Narrative* Sania Johnson DO - 09/21/2020 11:30 AM EDT The patient tolerated the infusion well without any complications. documented in this [facility]07-29-2021 History of Present illness Narrative* Jef Sierra Jr., DPSallie - 09/14/2020 3:11 PM EDT HPI Chief [...] without toes, left 01/26/2019 Asthma Atherosclerosis of [place] arteries of left leg with ulceration of [...] leg with muscle involvement without evidenceof necrosis ([facility]) [...] Social Gatherings with Friends and Family: Attends Adventism Services: Active Member of Clubs or Organizations: [...] diabetes andneed for procedure. documented in this [id number] History of Present illness Narrative* Luis Miguel [...] a neurologist. She is also seeing a industrial tractor driver and wound care. She has a follow-up [...] feels. To get her in touch with [employer], however she does not answer her phone if she does not recognize the number, so likely has been missing their calls. We will coordinate with [employer]; the tracking features of [employer] will undoubtedly help us help her. Hypothyroidism: [...] The patient is nervous/anxious. Patient last seen development educator 01/27/2018 Nursing Assessment: Physical Exam [facility]* Diagnosis Asthma, unspecified asthma severity, [...] evidenceof necrosis (HCC) [facility]* Diagnosis Great toe pain, left- Primary Foot abscess, left Cellulitis and abscess of foot, except toes [facility] Diagnosis Chronic ulcer of great toe of left foot, unspecified ulcer stage (HCC)- Primary [facility] Diagnosis Ulcer of left foot with fat layer exposed (HCC)- Primary [facility] Diagnosis Ulcer of left foot with fat layer exposed (HCC)- Primary [facility]* Diagnosis Non-pressure chronic ulcer of other part of left foot with fat layer exposed (HCC)- Primary Ulcer of left foot with fat layer exposed (HCC) [facility]* Diagnosis 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)- Primary [facility] Diagnosis 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) documented [facility]* Diagnosis 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)- Primary [facility]* Diagnosis Partial thickness burn of single finger of right hand excluding thumb, initial encounter- Primary Wound infection Posttraumatic wound infection not elsewhere classified Laceration of right thumb, initial encounter documented [facility]* Diagnosis 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 [facility]* Diagnosis Type 2 diabetes mellitus with diabetic polyneuropathy, with long-term current use of insulin- Primary Acquired hypothyroidism Unspecified hypothyroidism Diabetic macular edema- Primary [facility]* Diagnosis 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 Diabetic macular edema- Primary documented in this [facility]* Diagnosis 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 Diabetic macular edema- Primary documented in this [facility]* Diagnosis 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 Diabetic macular edema- Primary [facility]* Diagnosis 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 Diabetic macular edema- Primary [facility] Diagnosis Primary open angle glaucoma (POAG) of right eye, severe stage- Primary Primary open angle glaucoma (POAG) of left eye, severe stage Diabetic macular edema Pseudophakia Lens replaced by other means documented [facility]* Diagnosis Non-intractable vomiting with nausea, unspecified vomiting type- Primary Altered mental status, unspecified altered mental status type Leukocytosis, unspecified type documented in this encounter [employer] Phone: evaluation note* Diagnosis Sepsis ([facility])- Primary Stupor Other alteration of consciousness Encephalitis Unspecified cause of encephalitis, myelitis, and encephalomyelitis Acute osteomyelitis of cervical spine ([facility]) 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 MSSA (methicillin susceptible Staphylococcus aureus) septicemia ([facility]) Methicillin susceptible staphylococcus aureus septicemia Primary hypertension Unspecified essential hypertension Altered mental state Altered mental status Encephalopathy Encephalopathy, unspecified CIDP (chronic inflammatory demyelinating polyneuropathy) ([facility]) Chronic inflammatory demyelinating polyneuritis Bacteremia Hypothyroidism Unspecified [...] Acute intractable headache documented in this encounter [facility] [employer] Phone: evaluation note* Diagnosis COVID-19- Primary Pneumonia of left lower lobe due to infectious organism Hypokalemia Hypopotassemia Hypomagnesemia Disorders of magnesium metabolism MCFP (current) use of antibiotics documented in this encounter [facility] [employer] Phone: evaluation note* Diagnosis COVID- Primary Encephalopathy Encephalopathy, unspecified 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 Hypokalemia Hypopotassemia Primary hypertension Unspecified essential hypertension Type 2 diabetes mellitus with diabetic polyneuropathy ([facility]) Type II or unspecified type diabetes mellitus with neurological manifestations, not stated as uncontrolled Hypothyroidism Unspecified hypothyroidism Hypomagnesemia Disorders of magnesium metabolism CIDP (chronic inflammatory demyelinating polyneuropathy) (HCC) Chronic inflammatory demyelinating polyneuritis Bacteremia MSSA (methicillin susceptible Staphylococcus aureus) septicemia (HCC) Methicillin susceptible staphylococcus aureus septicemia Bandemia CRP elevated Elevated C-reactive protein (CRP) Metabolic encephalopathy Normocytic anemia Anemia, unspecified Acute respiratory failure with hypoxemia (HCC) Septic arthritis of cervical spine (HCC) Pyogenic arthritis, other specified sites Atlantoaxial instability Other joint derangement, not elsewhere classified, other specified site ACP (advance care planning) Other specified counseling Goals of care, counseling/discussion Other specified counseling Encounter for palliative care Feeding difficulties Feeding difficulties and mismanagement On tube feeding diet Pathological fracture of other site, unspecified pathological cause, initial encounter documented in this encounter [employer] Phone: evaluation noteNo assessment information available [facility] Work Phone: Evaluation note* Diagnosis Atlantoaxial instability Other joint derangement, not elsewhere classified, other specified site S/P cervical spinal fusion Arthrodesis status documented in this encounter [employer] Phone: evalzirmlj note* Diagnosis S/P cervical spinal fusion Arthrodesis status documented in this encounter [employer] Phone: evalfnurrk note* Diagnosis Primary open angle glaucoma (POAG) of both eyes, moderate stage- Primary 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 mellitus (CMS/HCC) Left posterior capsular opacification Unspecified after-cataract Dry eyes Unspecified tear film insufficiency [facility]* Diagnosis Other atopic dermatitis- Primary Traumatic ulcer of left foot, unspecified ulcer stage ([facility]) Impetigo documented in this [facility] [...] Cough, unspecified type documented in this encounter [facility]* Diagnosis Hypocalcemia- Primary Current mild episode of major depressive disorder, unspecified whether recurrent documented in this encounter [facility]* Diagnosis Gastroesophageal reflux disease without esophagitis- Primary Esophageal reflux Cough, unspecified type Acquired hypothyroidism Unspecified hypothyroidism documented in this encounter [facility] Assessments [...] use of insulin Luis Miguel Kaur MD [address] [place] [address] History of Present Illness * Luis Miguel [...] a neurologist. 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 on her [...] 4:27 PMCode StatusDate ActivatedDate InactivatedCommentsFull Code08/22/2021 1:31 AM09/28/2021 2:06 PMFull Code07/14/2021 4:39 PM08/11/2021 12:08 AMNameRelationship Healthcare Agent RelationshipCommunicationTammi HeefnerBrother/SisterPrimary Decision Maker* * * J JanelleOtherSupplemental (Other) Decision Maker* NameRelationshipHealthcare Agent RelationshipCommunicationTammi Heefner Brother/SisterPrimary Decision Maker* * * J JanelleOtherSupplemental (Other) Decision Maker* NameRelationshipHealthcare Agent RelationshipCommunicationTammi William Brother/SisterPrimary Decision Maker* * * Eun HernandezelleOtherSupplemental (Other) Decision Maker* Discharge Instructions * Instructions* [...] be rechecked at the Emergency Department. [ [address] [place] [address]: [place] Office - [address] [address] - Phone Number [phone] [place] Office - [address] [facility] [address] - Phone Number [phone] ] Rest and limit exertion / strenous activity. RETURN if symptoms CHANGE, NOT IMPROVING or need help.Take Medications as prescribed (if prescribed - Please take or use as directed) * Attachments The following attachments cannot be sent through Care Everywhere. * Cellulitis (Ghanaian) in this encounter* Instructions* Andres Lubin MD [...] sent through Care Everywhere. * Nail Avulsion ([place]anaian) documented in this encounter Additional Source Comments [...] [facility] [address] [facility] [id number] [place] [address] Infusion Suite [facility] [address] [place] [address] Referral IDStatusReasonStart DateExpiration DateVisits RequestedVisits [id number] Not Needed06/24/[id number]-rjNljmymyv Thyroid ProblemReasonCommentsInfusion VisitIVIGSpecialtyDiagnoses / Procedures Referred By ContactReferred To Contact Diagnoses CIDP (chronic inflammatory demyelinating polyneuropathy) Krystyna Busby [facility] [address] [facility] [id number] [place] [id number] Infusion Suite [facility] [address] [place] [address] XiayggQqjowmuwDjzhdm-nfBeprokMryckjtmCbdlmjerKkzcyj-esXcvmfgSqgmuqdiCxnnveTe came from [facility]. Per EMS she was outside and was brought back inside they were unaware she was outside. Per [facility] she is having bizarre behaviorEmesisAltered Mental StatusReasonCommentsAltered Mental Status SpecialtyDiagnoses / ProceduresReferred By ContactReferred To Contact Diagnoses Altered mental state [facility] Emergency Dept [address] [place] [address] [facility] [id number] [place] [address] Referral IDStatusReasonStart DateExpiration DateVisits RequestedVisits [id number]qbOuypehq was at outpatient infusion center for blood transfusion/low potassium transferred to ED forevaluationReason CommentsFollow-upEye ExamReasonCommentsEczemaReasonCommentsGlaucomaReasonOnset DateCommentsMed Llnaud1012/13/2024 INFORMATION SOURCE (unrecogn ized section and content) DATE CREATED AUTHOR 04/08/2018 [facility] DATE CREATED AUTHOR AUTHOR'S ORGANIZ ATION 06/07/2019 [facility] DATE CREATED AUTHOR AUTHOR'S ORGANIZ ATION 12/25/2019 [facility] DATE CREATED AUTHOR AUTHOR'S ORGANIZ ATION 02/13/2020 [facility] DATE CREATED AUTHOR AUTHOR'S ORGANIZ ATION 04/18/2021 [facility] DATE CREATED AUTHOR AUTHOR'S ORGANIZ ATION 05/02/2021 [facility] DATE CREATED AUTHOR AUTHOR'S ORGANIZ ATION 05/07/2021 [facility] DATE CREATED AUTHOR AUTHOR'S ORGANIZ ATION 05/09/2021 [facility] DATE CREATED AUTHOR AUTHOR'S ORGANIZ ATION 05/15/2021 [facility] DATE CREATED AUTHOR AUTHOR'S ORGANIZ ATION 06/01/2021 [facility] DATE CREATED AUTHOR AUTHOR'S ORGANIZ ATION 06/13/2021 [facility] DATE CREATED AUTHOR AUTHOR'S ORGANIZ ATION 09/05/2021 [facility] DATE CREATED AUTHOR AUTHOR'S ORGANIZ ATION 10/30/2021 [facility] DATE CREATED AUTHOR AUTHOR'S ORGANIZ ATION 11/27/2021 [facility] DATE CREATED AUTHOR AUTHOR'S ORGANIZ ATION 12/10/2021 [facility] DATE CREATED AUTHOR AUTHOR'S ORGANIZ ATION 11/25/2022 [facility] DATE CREATED AUTHOR AUTHOR'S ORGANIZ ATION 01/26/2023 [facility] DATE CREATED AUTHOR AUTHOR'S ORGANIZ ATION 05/07/2024 [facility] DATE CREATED AUTHOR AUTHOR'S ORGANIZ ATION 09/28/2024 [facility] EPIC Lindsey Bradshaw LPN [...] and content) Team MemberRelationshipSpecialtyStart DateEnd Date Neri Purcell DO [address] [place] [address] PCP - GeneralFamily Medicine03/28/17 Pili Gilliam DPM Consulting PhysicianPodiatr04/07/17 Reji Miramontes III, DO Consulting PhysicianVascular Surgery04/07/17Te MemberRelationshipSpecialtyStart DateEnd Date Neri Purcell, DO [address] [place] [address] PCP - GeneralFamily Medicine03/28/17 Pili Gilliam, MARK Consulting PhysicianPodiatry2 Reji Miramontes III, DO Consulting PhysicianVascular Surgery04/07/17Te MemberRelationshipSpecialtyStart [facility] Neri Purcell, DO [address] [place] [address] PCP - Generalmily Medicine03/28/17 Pili Gilliam, DPM Consulting PhysicianPodiatry2 Reji Miramontes III, DO Consulting PhysicianVascular Surgery04/07/17Te MemberRelationshipSpecialtyStart DateFormerly [facility] Neri Purcell, DO [address] [place] [address] PCP - Generalmily Medicine03/28/17 Pili Gilliam, DPM Consulting PhysicianPodiatry2 Reji Miramontes III, DO Consulting PhysicianVascular Surgery04/07/17Te MemberRelationshipSpecialtyStart DateFormerly [facility] Neri Purcell, DO [address] [place] [address] PCP - GeneralFamily Medicine03/28/17 Pili Gilliam, MARK Consulting PhysicianPodiatry2 Reji Miramontes III, DO Consulting PhysicianVascular Surgery04/07/17Te MemberRelationshipSpecialtyStart [facility] Neri Purcell, DO [address] [place] [address] PCP - GeneralFamily Medicine03/28/17 Pili Gilliam, MARK Consulting PhysicianPodiatry2 Reji Miramontes III, DO Consulting PhysicianVascular Surgery04/07/17Te MemberRelationshipSpecialtyStIndian Path Medical Center Neri Purcell, DO [address] [place] [address] PCP - Generalmily Medicine03/06/17 Skylar Hernandez MD [address] [place] [address] Ophthalmology07/18/17 Kartik Mejia MD [address] [place] [address] [place] [address] Pain Wtcfkour43/8/18 Tisha Arriaga MD [address] [place] [address] NeurologistNeurology07/18/17 Luis Miguel Kaur MD [address] [place] [address] EndocrinologistEndocrinology, Diabetes & Metabolism03/06/17 Chris Zavala, OD [address] [place] [address] Optometry03/15/20Te MemberRelationshipSpecialtyStart [facility] DO [address] [place] [address] PCP - [facility] Medicine03/06/17 Skylar Hernandez MD [address] [place] [address] Ophthalmology07/18/17 Kartik Mejia MD [address] [place] [address] Pain Ijmunbsm51/8/18 Tisha Arriaga MD [address] [place] [address] NeurologistNeurology07/18/17 Luis Miguel Kaur MD [address] [place] [address] EndocrinologistEndocrinology, Diabetes & Metabolism03/06/17 AlleganyChris, OD [address] [place] [address] Optometry03/15/20Te MemberRelationshipSpecialtyStSt. Luke's HospitalNeri, DO [address] [place] [address] PCP - [facility] Medicine03/06/17 Skylar Hernandez MD [address] [place] [address] Ophthalmology07/18/17 Kartik Mejia MD [address] [place] [address] Pain Ljvklsln04/8/18 Tisha Arriaga MD [address] [place] [address] NeurologistNeurology07/18/17 Luis Miguel Kaur MD [address] [place] [address] EndocrinologistEndocrinology, Diabetes & Metabolism03/06/17 Chris Zavala, OD [address] [place] [address] Optometry03/15/20Team MemberRelationshipSpecialtyStart DateEnd Date FruitlandNeri, [address] [place] [address] PCP - Generalmily Medicine03/06/17 Skylar Hernandez MD [address] [place] [address] Ophthalmology07/18/17 Kartik Mejia MD [address] [place] [address] Pain Lqpkkhxm06/8/18 Tisha Arriaga MD [address] [place] [address] NeurologistNeurology07/18/17 Luis Miguel Kaur MD [address] [place] [address] EndocrinologistEndocrinology, Diabetes & Metabolism03/06/17 Chris Zavala, OD [address] [place] [address] Optometry03/15/20Team MemberRelationshipSpecialtyStart DateEnd [facility], Neri Parker, DO [address] [place] [address] PCP - GeneralFamily Medicine03/06/17 Skylar Hernandez MD [address] [place] [address] Ophthalmology07/18/17 Kartik Mejia MD [address] [place] [address] Pain Qnharoju41/8/18 Tisha Arriaga MD [address] [place] [address] NeurologistNeurology07/18/17 Luis Miguel Kaur MD [address] [place] [address] EndocrinologistEndocrinology, Diabetes & Metabolism03/06/17 Chris Zavala, OD [address] [place] [address] Optometry03/15/20Team MemberRelationshipSpecialtyStSt. Luke's Hospital, Neri Parker, DO [address] [place] [address] PCP - GeneralFamily Medicine03/06/17 Skylar Hernandez MD [address] [place] [address] Ophthalmology07/18/17 Kartik Mejia MD [address] [place] [address] Pain Azqvibtf47/8/18 Tisha Arriaga MD [address] [place] [address] NeurologistNeurology07/18/17 Luis Miguel Kaur MD [address] [place] [address] EndocrinologistEndocrinology, Diabetes & Metabolism03/06/17 Chris Zavala, OD [address] [place] [address] Optometry03/15/20Team MemberRelationshipSpecialtyStart [facility], Neri Parker, DO [address] [facility] [address] PCP - GeneralFamily Medicine03/06/17 Skylar Hernandez MD [address] [place] [address] Ophthalmology07/18/17 Kartik Mejia MD [address] [place] [address] Pain Qsmtcyui35/8/18 Tisha Arriaga MD [address] [place] [address] NeurologistNeurology07/18/17 Luis Miguel Kaur MD [address] [place] [address] EndocrinologistEndocrinology, Diabetes & Metabolism03/06/17 Chris Zavala, OD [address] [place] [address] Optometry03/15/20Team MemberRelationshipSpecialtyStart [facility], Neri Parker, DO [address] [place] [address] PCP - GeneralFamily Medicine07/19/18Team MemberRelationshipSpecialtyStart DateEnd Date [place], Sr Neri Parker, DO [address] [facility] [place] [address] PCP - GeneralFamily Medicine07/19/18Team MemberRelationshipSpecialtyStart DateEnd Date [place], Sr Neri Parker, DO [address] [facility] [place] [address] PCP - Generalmily Medicine07/19/18Team MemberRelationshipSpecialtyStart DateEnd Date [place], Sr Neri Parker, DO [address] [facility] [place] [address] PCP - [facility] Medicine07/19/18 Team Status: Inactive Member Role Status Dates Rufus Perez II MD Attending Provider Active Team MemberRelationshipSpecialtyStart DateEnd Date Ganga Savage MD [address] [place] [address] PCP - GeneralInternal Medicine08/14/21Team MemberRelationshipSpecialtyStart Date End Date Ganga Savage MD [address] [place] [address] PCP - GeneralInternal Medicine08/14/21Team MemberRelationshipSpecialtyStart Date End Date Ganga Savage MD [address] [place] [address] PCP - GeneralInternal Medicine08/14/21Team MemberRelationshipSpecialtyStart Date End Date Neri Purcell MD [address] [place] [facility] [place] [place] [address] PCP - GeneralFamily Medicine08/12/22Team MemberRelationshipSpecialtyStart DateEnd Date Neri Purcell MD [address] [place] [facility] [place] [place] [address] PCP - GeneralFamily Medicine08/12/22Team MemberRelationshipSpecialtyStart DateEnd Date Neri Purcell MD [address] [place] [facility] [place] [place] [address] PCP - GeneralFamily Medicine08/12/22Team MemberRelationshipSpecialtyStart DateEnd Date Neri Purcell MD [address] [place] [facility] [place] [place] [address] PCP - GeneralFamily Medicine08/12/22Team MemberRelationshipSpecialtyStart DateEnd Date Neri Purcell MD [address] [place] [facility] [place] [place] [address] PCP - GeneralFamily Medicine08/12/22Team MemberRelationshipSpecialtyStart DateEnd Date Neri Purcell MD PCP - GeneralFamily Medicine08/12/22Team MemberRelationshipSpecialtyStart DateEnd Date Neri Purcell MD PCP - GeneralFamily Medicine08/12/22Team MemberRelationshipSpecialtyStart DateEnd Date Neri Purcell MD PCP - GeneralFamily Medicine08/12/22Team MemberRelationshipSpecialtyStart DateEnd Date Neri Purcell MD PCP - GeneralFamily Medicine08/12/22Team MemberRelationshipSpecialtyStart DateEnd Date [place], Neri P, MD PCP - [facility]08/12/22Te MemberRelationshipSProvidence Mission HospitalNeri Rossa MD PCP - [facility]08/12/22Te MemberRelationsParnassus campus Neri Wei MD PCP - [facility]08/12/22Te MemberRelationsParnassus campus Neri Wei MD [address] [place] [address] PCP - [facility]08/12/22 Scheduled Active and Recently Administ ered Medications (unrecognized section and content) Medication Order//01/2022 0.9 % sodium chloride bolus (COMPLETED) 1,000 mL, IntraVENous, at 1,000 mL/hr, Administer over 1 Hours, ONCE, On Nohemy 06/28/21 at 0415, For 1dose * 0441 (New Bag - Provider: Ashwini Morrison RN) * 0546 (Stopped - Provider: Kati Villarreal RN) 0.9 % sodium chloride bolus (COMPLETED) 1,000 mL (15.2 mL/kg), IntraVENous, at 1,000 mL/hr, Administer over 1 Hours, ONCE, On Nohemy 06/28/21 at 0800, For 1 dose * 0700 (New Bag - Provider: Kati Villarreal, VIRGIE) * 0810 (Stopped - Provider: Kati Villarreal RN) aspirin chewable tablet 81 mg (COMPLETED) 81 mg, Oral, ONCE, 1 dose, On Nohemy 06/28/21 at 0730 * 0727 (Given - Provider: Kati Villarreal RN) famotidine (PEPCID) 20 mg in sodium chloride (PF) 10 mL injection (COMPLETED) 20 mg, IntraVENous, ONCE, 1 dose, On Nohemy 06/28/21 at 0415, IV Push over minimum of 2 minutes - Dilute with 10 mL NS * 0410 (Given - Provider: Ashwini Morrison RN) naloxone (NARCAN) injection 1 mg (COMPLETED) 1 mg, IntraVENous, ONCE, 1 dose, On Nohemy 06/28/21 at 0530 * 0523 (Given - Provider: Ashwini Morrison, VIRGIE) ondansetron (ZOFRAN) injection 4 mg (COMPLETED) 4 mg, IntraVENous, ONCE, 1 dose, On Nohemy 06/28/21 at 0415 * 0409 (Given - Provider: Ashwini Morrison, VIRGIE) ondansetron (ZOFRAN) injection 4 mg (COMPLETED) 4 mg, IntraVENous, ONCE, 1 dose, On Nohemy 06/28/21 at 0800 * 0811 (Given - Provider: Kati Villarreal, VIRGIE) prochlorperazine (COMPAZINE) injection 10 mg (COMPLETED) 10 mg, IntraVENous, ONCE, 1 dose, On Nohemy 06/28/21 at 0945 * 0946 (Given - Provider: Kati Villarreal, VIRGIE) Medication Order///01/2022 iopamidol (ISOVUE-370) 76 % injection [...] * 1758 (Given - Provider: Camilo Hernandez, VIRGIE) * 2250 (Given - Provider: Maggi Quiñones, VIRGIE) * 0422 (Not Given - Provider: Maggi Quiñones RN - Reason: Patient/family refused) * 1107 (Given - Provider: Sebas Arnold RN) * 1533 (Given - Provider: Sebas Arnold RN) * 2250 (Not Given - Provider: Maggi [...] Held - Provider: REBEKA Rolon NP) * 09 (Held - Provider: Sebas Arnold [...] MD) * 0915 (Given - Provider: Sebas Arnold, RN) fluconazole (DIFLUCAN) tablet 200 mg 200 mg, Oral, DAILY, 14 doses, First dose on 07/02/21 at 1430, Last dose on Fri07/15/21 at 0900,Antimicrobial Indications: Intra-Abdominal Infection * 0813 (Given - Provider: Camilo Hernandez, RN) * 0809 (Given - Provider: Sebas Arnold, RN) * 0916 (Given - Provider: Sebas Arnold, RN) gabapentin (NEURONTIN) capsule 200 mg 200 mg, Oral, 3 TIMES DAILY, First dose on Fri07/04/21 at 1500, Until Discontinued * 0813 (Given - Provider: Camilo Hernandez, VIRGIE) * 1257 (Given - Provider: Camilo Hernandez RN) * 2014 (Given - Provider: Maggi Quiñones, RN) * 0807 (Given - Provider: Sebas Arnold, RN) * 1322 (Given - Provider: Sebas Arnold, RN) * 2028 (Given - Provider: Maggi Quñiones, RN) * 0914 (Given - Provider: Sebas [...] MD) * 0839 (Given - Provider: Sebas Arnold, RN) * 0900 (Held - Provider: Sebas Arnold, RN - Reason: Order parameters not met) [...] Removed - Provider: Maggi Quiñones RN) * 08 (Patch Applied - Provider: Sebas Arnold RN) * 2026 (Patch Removed - Provider: Maggi Quiñones RN) * 914 (Patch Applied - Provider: Sebas Arnold RN) * 2114 (Due: Patch Removed - Provider: Sebas Arnold, VIRGIE) lisinopril (PRINIVIL;ZESTRIL) tablet 10 mg 10 mg, Oral, DAILY, First dose (after last modification) on Fri07/03/21 at 0900, Until Discontinued * 09 (Automatically Held - Provider: Becki Chang MD) * 899 (Held - Provider: Sebas Arnold RN - Reason: Order parameters not met) * 899 (Held - Provider: Sebas Arnold RN - [...] RN) * 1357 (Stopped - Provider: Sebas Arnold RN) nafcillin [...] * 1758 (New Bag - Provider: Camilo Hernandez RN) * 1811 (Stopped - Provider: Camilo Hernandez, VIRGIE) * 2018 (New Bag - Provider: Maggi Quiñones, VIRGIE) * 2118 (Stopped - Provider: Maggi Quiñones, VIRGIE) * 0008 (New Bag - Provider: Maggi Quiñones RN) * 0111 (Stopped - Provider: Maggi Quiñones, VIRGIE) * 0420 (New Bag - Provider: Maggi Quiñones RN) * 0525 (Stopped - Provider: Maggi Quiñones RN) * 0826 (New Bag - Provider: Sebas Arnold RN) * 0950 (Stopped - Provider: Sebas Arnold RN) * 1115 (New Bag - Provider: Sebas Arnold RN) * 1220 (Stopped - Provider: Sebas Arnold RN) * 1546 (New Bag - Provider: Sebas Arnold RN) * 1648 (Stopped - Provider: Sebas Arnold RN) * 2030 (New Bag - Provider: Maggi Quiñones RN) * 2158 (Stopped - Provider: Maggi Quiñones RN) * 0006 (New Bag - Provider: Maggi uQiñones RN) * 0106 (Stopped - Provider: Maggi [...] refused) * 0808 (Given - Provider: Sebas Arnold, VIRGIE) * 2026 (Not Given - Provider: Maggi Quiñones RN - Reason: Patient/family refused) * 0915 (Given - Provider: Sebsa Arnold, VIRGIE) * 2100 (Due) sodium chloride flush 0.9 % injection [...] RN - Reason: IV Fluid Infusing) * 0812 (Given - Provider: Sebas Arnold RN) * 2027 (Not Given - Provider: Maggi Quiñones RN - Reason: IV Fluid Infusing) * 0917 (Given - Provider: Sebas Arnold RN) * 2099 (Due - Provider: Rufus Argueta [...] Infusing) * 0809 (Given - Provider: Sebas Arnold [...] RN) * 0807 (Given - Provider: Sebas Arnold RN) * 2027 (Given - Provider: Maggi Quiñones RN) * 0914 (Given - Provider: Sebas Arnold, RN) * 2100 (Due) Medication Order05/22/387017/// 0.9 % sodium chloride infusion IntraVENous, at 100 mL/hr, CONTINUOUS, Starting on Fri07/05/21 at 1945 * 2246 (New Bag - Provider: Maggi Quiñones RN) * 1838 (New Bag - Provider: Sebas Arnold, VIRGIE) * 1406 (New Bag - Provider: Sebas Arnold RN) Medication Order// 0.9 % sodium chloride infusion IntraVENous, at [...] * 1308 (New Bag - Provider: Sebas Arnold, RN) * 1317 (Stopped - Provider: Sebas Arnold, RN) dextrose [...] * 1308 (See Alternative - Provider: Sebas Arnold RN) * 1317 (See Alternative - Provider: Sebas Arnold, RN) [...] stool. * 0808 (Given - Provider: Sebas Arnold [...] RN) * 0522 (Given - Provider: Maggi Quiñones RN) * 1533 (See Alternative - Provider: Sebas Arnold RN) oxyCODONE (ROXICODONE) immediate release tablet 5 mg(Linked Group 3) 5 mg, Oral, EVERY 4 HOURS PRN, Starting on Fri07/06/21 at 2217, Until Discontinued, Pain Moderate (4-6) * 1348 (See Alternative - Provider: Camilo Hernandez RN) * 0522 (See Alternative - Provider: Maggi Quiñones RN) * 1533 (Given - Provider: Sebas Arnold RN) potassium [...] mL 10 mL, IntraVENous, PRN, Starting on Nhoemy 07/05/21 at 1732, Until Discontinued, Line Care, [...] 0915 (Given - Provider: Sebas Arnold, VIRGIE) Order Group 1: dextrose bolus 10% 125 [...] Fri06/28/21 at 2107, Until Discontinued, Nausea, Vomiting Or ondansetron (ZOFRAN) injection 4 mgJump to med 4 mg, IntraVENous, EVERY 6 HOURS PRN, Starting on Fri06/28/21 at 2107, Until Discontinued, Nausea, Vomiting
Administer [...] RN) * 0007 (Stopped - Provider: Bassam Camacho, VIRGIE) [...] dilute if GI adverse effects occur. * 2129 (Given - Provider: Rakesh Rodriguez RN) potassium [...] 0800 (Given - Provider: Yolanda De La Fuente, VIRGIE) * 1655 (Given - Provider: Yolanda De [...] (Given - Provider: Maggi Multani RN) * 0807 (Given - Provider: Yolanda De La Fuente RN) * 2033 (Given - Provider: Lubna Peralta, VIRGIE) * 0820 (Given - Provider: Anna Veliz, VIRGIE) * 2009 (Given - Provider: Lubna Peralta, VIRGIE) enoxaparin (LOVENOX) injection 40 mg 40 mg, SubCUTAneous, DAILY, First dose (after last modification) on 07/14/21 at 1745, Until Discontinued, Indication of Use: Prophylaxis-DVT/PE * 0851 (Given - Provider: Alejandra Goldberg RN) * 0800 (Given - Provider: Yolanda De La Fuente, VIRGIE) * 0821 (Given - Provider: Anna Veliz, VIRGIE) famotidine (PEPCID) tablet 20 mg 20 mg, Per NG tube, 2 TIMES DAILY, First dose on Nohemy 08/02/21 at 2100, Until Discontinued, IV to PO change per P&T policy * 0850 (Given - Provider: Alejandra Goldberg RN) * 2051 (Given - Provider: Maggi Multani RN) * 0801 (Given - Provider: Yolanda De La Fuente RN) * 2048 (Given - Provider: Lubna Peralta, VIRGIE) * 08 (Given - Provider: Anna Veliz, VIRGIE) * 2021 (Given - Provider: Lubna Peralta RN) gabapentin (NEURONTIN) capsule 200 mg 200 mg, Oral, 3 TIMES DAILY, First dose on Fri07/19/21 at 0900, Until Discontinued * 0850 (Given - Provider: Alejandra Goldberg RN) * 1558 (Given - Provider: Alejandra Goldberg RN) * 2051 (Given - Provider: Maggi Multani RN) * 1030 (Given - Provider: Yolanda De La Fuente RN) * 1610 (Given - Provider: Yolanda De La Fuente RN) * 220 (Given - Provider: Lubna Peralta RN) * 1014 (Given - Provider: Anna Veliz RN) * 151 (Given - Provider: Anna Veliz RN) * 2199 (Due - Provider: L[facility] [place] [facility] [...] RN) * 2041 (Given - Provider: Lubna Peralta RN) [...] (Given - Provider: Alejandra Goldberg RN) * 210 (Given - Provider: Maggi Multani RN) * 0250 (Not Given - Provider: Maggi Multani RN - Reason: Order parameters not met) * 0812 (Given - Provider: Yolanda De La Fuente RN - Comment: bs 202) * 165 (Given - Provider: Yolanda De La Fuente RN) * 2043 (Given - Provider: Lubna Peralta RN) * 0318 (Not Given - Provider: Lubna Peralta RN - Reason: Order parameters not met - Comment: blood sugar 133mg/dl) * 1012 (Given - Provider: Anna Veliz RN) * 151 (Given - Provider: Anna Veliz RN) * 2027 (Given - Provider: Lubna Peralta [...] RN) * 2024 (Given - Provider: Lubna Peralta RN) levothyroxine (SYNTHROID) tablet 100 mcg 100 mcg, Oral, DAILY, First dose on 07/14/21 at 1730, Until Discontinued, Tube feeding (TF) interaction, obtain physician order to manage, recommend holding TF for 30 minutes before and after dose. * 0901 (Given - Provider: Alejandra Goldberg, VIRGIE) * 0612 (Given - Provider: Maggi Multani, RN) * 0559 (Given - Provider: Lubna Peralta RN) metoclopramide (REGLAN) injection 5 mg (CANCELED) 5 mg, IntraVENous, EVERY 6 HOURS, First dose on Fri08/04/21 at 1600, Until Discontinued * 0444 (Given - Provider: Nany Newman RN) * 1045 (Given - Provider: Alejandra Goldberg RN) * 1608 (Given - Provider: Alejandra Goldberg RN) * 2207 (Given - Provider: Maggi Multani, VIRGIE) * 0322 (Given - Provider: Maggi Multani [...] * 1608 (New Bag - Provider: Alejandra Goldberg, VIRGIE) * 1611 (Rate/Dose Verify - Provider: Alaina Funes, VIRGIE) * 1708 (Stopped - Provider: Alaina Funes, RN) * 1711 (Stopped - Provider: Alejandra Goldberg RN) * 2207 (New Bag - Provider: Maggi Multani RN) * 2307 (Stopped - Provider: Maggi Multani RN) * 0343 (New Bag - Provider: Maggi Multani RN) * 0346 (Rate/Dose Verify - Provider: Yolanda De La Fuente RN) * 0443 (Stopped - Provider: Maggi Multani RN) * 1026 (New Bag - Provider: Yolanda De La Fuente RN) * 1031 (Rate/Dose Verify - Provider: Yolanda De La Fuente RN) * 1126 (Stopped - Provider: Yolanda De La Fuente, VIRGIE) * 1614 (New Bag - Provider: Yolanda De La Fuente RN) * 1616 (Rate/Dose Verify - Provider: Yolanda De La Fuente RN) * 1638 (Rate/Dose Verify - Provider: Yolanda De La Fuente, VIRGIE) * 1714 (Stopped - Provider: Yolanda De [...] RN) * 1115 (Stopped - Provider: Anna Veliz, VIRGIE) * 1649 (New Bag - Provider: Anna Veliz RN) * 1650 (Rate/Dose Verify - Provider: Anna Veliz RN) * 1749 (Stopped - Provider: Anna Veliz, VIRGIE) * 2230 (Due - Provider: Loulou Vickers) [...] given due to recent prn given) * 2051 (Given - Provider: Maggi Multani RN) * 0251 (Given - Provider: Maggi Multani RN - Comment: hypotension) * 0807 (Given - Provider: Yolanda De La Fuente, VIRGIE) * 1419 (Given - Provider: Yolanda De La Fuente RN) * 2033 (Given - Provider: Lubna Peralta RN) * 0212 (Given - Provider: Lubna Peralta RN) * 0820 (Given - Provider: Anna Veliz, VIRGIE) * 142 (Given - Provider: Anna Veliz, VIRGIE) * 2009 (Given - Provider: Lubna Peralta RN) potassium bicarb-citric acid (EFFER-K) effervescent tablet 40 mEq 40 mEq, Oral, 4 TIMES DAILY, 8 doses, First dose on Fri07/17/21 at 1700, Last dose on Fri07/19/21 hr0924, Do not chew or crush. Dissolve flavored [...] (Given - Provider: Maggi Multani RN) * 220 (Given - Provider: Lubna Peralta RN) * 220 (Due - Provider: L[facility]vall [facility] [...] (Given - Provider: Lubna Peralta RN) Medication Order// 0.9 % sodium chloride infusion IntraVENous, at 10 mL/hr, CONTINUOUS, Starting on Fri07/29/21 at 0830 * 0621 (New Bag - Provider: Nany Newman RN) * 1020 (Rate/Dose Verify - Provider: Alejandra Goldberg, RN) * 1247 (Rate/Dose Verify - Provider: Alejandra Goldberg, RN) * 1842 (Rate/Dose Verify - Provider: [...] * 1258 (Rate/Dose Verify - Provider: Anna Veliz, VIRGIE) * 1544 (Rate/Dose Verify - Provider: Anna Veliz, VIRGIE) * 1910 (Rate/Dose Verify - Provider: Anan Veliz, VIRGIE) dexmedetomidine (PRECEDEX) 400 mcg in sodium chloride 0.9 % 100 mL infusion 0.1-1.5 mcg/kg/hr 60.6 kg (1.515-22.725 mL/hr, rounded to 1.5-22.7 mL/hr), IntraVENous, CONTINUOUS,Starting on 6/15/22 at 1430, Until Discontinued, Titrate Infusion? Yes, [...] Verify - Provider: Alaina Funes RN) * 185 (Rate/Dose Verify - Provider: Yolanda De La Fuente RN) * 185 (Rate/Dose Verify - Provider: Yolanda De La Fuente RN) * 192 (Handoff - Provider: Alejandra Goldberg RN) * 2030 (Rate/Dose Verify - Provider: Yolanda De La Fuente RN) * 2031 (Rate/Dose Verify - Provider: Yolanda De La Fuente RN) * 2111 (Rate/Dose Verify - Provider: Yolanda De La Fuente RN) * 2112 (Rate/Dose Verify - Provider: Yolanda De La Fuente RN) * 2115 (New Bag - Provider: Maggi Multani RN) [...] * 1544 (Rate/Dose Verify - Provider: Anna Veliz, VIRGIE) * 1909 (Handoff - Provider: Anna Veliz RN) * 191 (Rate/Dose Verify - Provider: Anna Veliz RN) * 203 (New Bag - Provider: Lubna Peralta RN) [...] 1055 (Given - Provider: Yolanda De La Fuente, VIRGIE) glucagon (rDNA) injection 1 mg 1 [...] Anxiety * 0444 (Given - Provider: Nany Newman RN) * 1554 (Given - Provider: Alejandra Goldberg RN) * 2236 (Given - Provider: Maggi Multani RN) * 1119 (Given - Provider: Yolanda De [...] (unrec ognized section and content) PrescriptionSigDispensedRefillsStart DateEnd Date lactobacillus (CULTURELLE) capsule Take 1 capsule by mouth daily (with breakfast) 30 capsule valproic acid (DEPAKENE) 250 MG/5ML SOLN oral solution Take 5 mLs by mouth in the morning and at bedtime 300 mL gabapentin (NEURONTIN) 100 MG capsule Take 2 capsules by mouth 3 times daily for 15 days. 90 capsule /09/2021 fluconazole (DIFLUCAN) 200 MG tablet Take 1 tablet by mouth daily for 6 doses 6 tablet / levothyroxine (SYNTHROID) 100 MCG tablet Take 1 [...] the iv AB is over - keep skilled nursing suppression 60 tablet 110rescriptionSigDispensedRefillsStart DateEnd oxyCODONE (ROXICODONE) 5 MG immediate release [...] BE BASED ON THE PRIMARY CLINICAL RECORDS. [facility] provides no warranty or guarantee of the accuracy or completeness of information in this document.
== END 2025-01-11 10:39 | disposition home or self-care (01) ==
LOC: WC 10:38
PROVIDERS: PCP Family Medicine; Visit Provider Physician Assistant
DX: E11.621 Type 2 diabetes mellitus with foot ulcer (principal); L97.422 Non-pressure chronic 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
CPT/HCPCS: 11043

== ENCOUNTER 2025-01-15 21:12 | Emergency (ER) | payer MEDICARE, OTHER, MEDICAID, SELFPAY ==
--- OUTSIDE RECORDS SUMMARY | 2023-10-29 08:15 | XMS_ITS ---
Author Organization [facility] Address [address] [place] [address] [place] [address] [place] [address] Care Team Providers Care [employer] Name Role Phone José Miguel Crouch;kaiden, Jesse Primary Care Provider Un available Jose Field Unavailable [phone] Encounters Encounter Location Date Provider Diagnosis [address] [address] 10/29/2023 Jose Field Plan Of Treatment Next Appt Details Provider Name:Jose philip, 01/17/2025 03:15:00 PM, [address] [place] [address] Dr [address], [address], [place], [address], Provider Name:Jose philip, 01/19/2025 03:00:00 PM, [address] [place] [address], [phone], Progress Notes * Claudia FERNANDEZOB:1965 ([age] yo F)Acc No.[id number]:10/29/2023 Patient:?Cleo Fernandez :?SINDY RodriguezMDOB:1965???Age:58 Y???Sex: FemaleDate:4Phone:[phone]:[address] [place] [address]Zda:Willa Mayen;kaiden * Electronic signature of Jose Field DPM on 01/15/2025 at 10:08 PM ESTSign off status: Pending * Provider: Sallie Field DPM Date: 0 10/29/2023 Generated for Printing/Faxing/eTransmitting on:?01/15/2025 10:08 PM EST
--- OUTSIDE RECORDS SUMMARY | 2024-01-21 10:00 | XMS_ITS ---
Author Organization [facility] Address [address] [place] [address] [place] [address] [place] [address] Care Team Providers Care Railroad Wheels And Axles Inspector Name Role Phone José Miguel Crouch;kaiden, Jesse Primary Care Provider Un available Jose Field Unavailable [phone] Encounters Encounter Location Date Provider Diagnosis [address] [address] 01/21/2024 Jose Field Plan Of Treatment Next Appt Details Provider Name:Jose philip, 01/17/2025 03:15:00 PM, [address] [place] [address] [address], [address], [place], [address], Provider Name:Jose philip, 01/19/2025 03:00:00 PM, [address] [place] [address], [phone], Progress Notes * Claudia FERNANDEZOB:1965 ([age] yo F)Acc No.[id number]:01/21/2024 Patient:?Cleo Fernandez :?SINDY RodriguezMDOB:1965???Age:58 Y???Sex: FemaleDate:4Phone:[phone]:[address] [place] [address]Ljh:Willa Mayen;kaiden * Electronic signature of Jose Field DPM on 01/15/2025 at 10:09 PM ESTSign off status: Pending * Provider: Sallie Field DPM Date: 1 03/23/2023 Generated for Printing/Faxing/eTransmitting on:?01/15/2025 10:09 PM EST
--- OUTSIDE RECORDS SUMMARY | 2024-04-21 10:00 | XMS_ITS ---
Author Organization [facility] Address [address] [place] [address] [place] [address] [place] [address] Care Team Providers Care Director Banking Name Role Phone José Miguel Crouch;kaiden, Jesse Primary Care Provider Un available Jose Field Unavailable [phone] Encounters Encounter Location Date Provider Diagnosis [address] [address] 04/21/2024 Jose Field Plan Of Treatment Next Appt Details Provider Name:Jose philip, 01/17/2025 03:15:00 PM, [address] [place] [address] [address], [address], [place], [address], Provider Name:Jose philip, 01/19/2025 03:00:00 PM, [address] [place] [address], [address], Progress Notes * Claudia FERNANDEZOB:1965 ([age] yo F)Acc No.[id number]:04/21/2024 Patient:?Cleo Fernandez :?SINDY RodriguezMDOB:1965???Age:59 Y???Sex: FemaleDate:04/21/2024Phone:[phone]:[address] [place] [address]Sdn:Willa Mayen;kaiden * Electronic signature of Jose Field DPM on 01/15/2025 at 10:09 PM ESTSign off status: Pending * Provider: Sallie Field DPM Date: 0 04/21/2024 Generated for Printing/Faxing/eTransmitting on:?01/15/2025 10:09 PM EST
--- OUTSIDE RECORDS SUMMARY | 2024-06-09 08:45 | XMS_ITS ---
Author Organization [facility] Address [address] [place] [address] [place] [address] [place] [address] Care Team Providers Care Cell Inspector Name Role Phone José Miguel Crouch;kaiden, Jesse Primary Care Provider Un available Jose Field Unavailable [phone] REASON FOR VISIT L CALLUS only; not toenails Encounters Encounter Location Date Provider Diagnosis [address] [address] 06/09/2024 Jose Field Plan Of Treatment Next Appt Details Provider Name:Jose philip, 01/17/2025 03:15:00 PM, [address] [place] [address] Dr [address], [place], [address], Provider Name:Jose philip, 01/19/2025 03:00:00 PM, [address] [place] [address], [phone], Progress Notes * Claudia FERNANDEZOB:1965 ([age] yo F)Acc No.[id number]:06/09/2024 Patient:?Cleo Fernandez :?SINDY RodriguezMDOB:1965???Age:59 Y???Sex: FemaleDate:06/09/2024Phone:[phone]:[address] [place] [address]Vxs:Willa Mayen;kaiden Subjective: * Chief Complaints: * L CALLUS only; not toenails * Electronic signature of Jose Field DPM on 01/15/2025 at 10:09 PM ESTSign off status: Pending * Provider: Sallie Field DPM Date: 0 06/09/2024 Generated for Printing/Faxing/eTransmitting on:?01/15/2025 10:09 PM EST
--- OUTSIDE RECORDS SUMMARY | 2024-10-20 09:00 | XMS_ITS ---
Author Organization [facility] Address [address] [place] [address] [place] [address] [place] [address] Care Team Providers Care Security Operations Analyst Name Role Phone José Miguel Crouch;kaiden, Jesse Primary Care Provider Un available Jose Field Unavailable [phone] Encounters Encounter Location Date Provider Diagnosis [address] [address] 10/20/2024 Jose Field Plan Of Treatment Next Appt Details Provider Name:Jose philip, 01/17/2025 03:15:00 PM, [address] [place] [address] [address], [address], [place], [address], Provider Name:Jose philip, 01/19/2025 03:00:00 PM, [address] [place] [address], [address], Progress Notes * Claudia FERNANDEZOB:1965 ([age] yo F)Acc No.[id number]:10/20/2024 Patient:?Cleo Fernandez :?SINDY RodriguezMDOB:1965???Age:59 Y???Sex: FemaleDate:10/20/2024Phone:[phone]:[address] [place] [address]Zyv:Willa Mayen;kaiden * Electronic signature of Jose Field DPM on 01/15/2025 at 10:08 PM ESTSign off status: Pending * Provider: Sallie Field DPM Date: 0 10/20/2024 Generated for Printing/Faxing/eTransmitting on:?01/15/2025 10:08 PM EST
[2025-01-15] VITALS (17 sets, daily range): BP systolic 148–176; BP diastolic 81–95; PULSE 91–106; TEMP 36.7; O2SAT 91–97
--- NOTE | 2025-01-15 21:18 | XR_ITS ---
The [address] [address] Patient Name: MEG FERNANDEZ MRN: [id number] date: 1965 Sex: F Assigned Patient Location: ER Current Patient Location: Accession/Order Number: [id number] Exam Date: 01/15/2025 21:30 Report Date: 01/16/2025 08:23 At the request of: CARLOS FISHMAN DO Procedure: XR chest 1V XR chest 1V 01/15/2025 9:39 PM SIGNS AND SYMPTOMS: ^r/o PNA , cough PROTOCOL: Frontal radiograph of the chest COMPARISON: 12/19/2023 FINDINGS: The trachea is midline. Atherosclerotic changes are noted in the thoracic aorta. The heart and mediastinal structures are within normal limits. The lung parenchyma is clear. The bony thorax is intact. Postoperative changes are noted in the left shoulder. Degenerative changes are noted in the shoulders and thoracic spine. XR/XR chest 1V IMPRESSION: No acute cardiopulmonary pathology. Impression dictated by: Chris Albright M.D. 01/16/2025 8:23 AM Dictation Location: [place] [address] Electronically authenticated by: [id number] Y Date: 01/16/2025 08:23
--- NOTE | 2025-01-15 21:18 | ECG_ITS ---
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 Measurements Intervals [place] Rate: 92 P: 36 OK: 132 QRS: 30 QRSD: 74 T: 59 QT: 342 QTc: 392 Interpretive Statements 1100 Sinus rhythm 4068 Nonspecific Twave abnormality 9130 borderline ECG No previous ECG available for comparison Electronically Signed On 01-15-2025 22:00:46 EST by FELIPA ALANIS M.D.
[2025-01-15 22:09] LABS: Glucose Urine UA 100 mg/dL (NEGATIVE)
--- OUTSIDE RECORDS SUMMARY | 2025-01-15 22:09 | XMS_ITS | Clinical Summary ---
Author Organization [facility] Healthcare Address [address] [place] [address] Care Team Providers Care Electrical Test Technician Name Role Phone Aamir Purcell MD Primary Care Provider [phone] Allergies Active AllergyReactionsCriticalityNoted DateCommentsCephalexinHives,Itching, Unknown,Rash,ZynbioqiFqrb39/15/2012 burning MoxifloxacinItching,Unknown,Rash,NkrhsgbxVity16/15/2012 Abdominal pain Peg 4985-Mhs-Qowjx-Nacl-LoajxiRcwx24/11/4177CwrvpjfwtwVhyppnoBghn55/19/2014 Mental status changes Passed out Medications MedicationSigDispense [...] each day at the same timeActive HYDROcodone-acetaminophen (Thatcher) 5-325 MG tablet Take 1 tablet by [...] not crush or chew. 30 capsule tive Active Problems ProblemNoted DateDiagnosed DatePrimary open angle glaucoma (POAG) of both eyes, moderate stage06/28/2024Left posterior capsular fhlhikjikbnqx26/12/2025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 flaezhqu99/12/2025Dry eyes06/28/2024 Encounters DateTypeDepartmentCare VwywBtgakkqtjbb64/19/2025bstract [facility] [address] [facility] [address] [place] [phone] Aamir Purcell MD 12/23/2024bstract [facility] [address] [facility] [address] [place] [address] Aamir Purcell MD 12/22/2024Telephone [facility] [address] [facility] [address] [place] [address] [place] Chávez, ARLETTE 12/13/2024Refill [facility] [address] [facility] [address] [place] [address] TidiouteJany muhammad MA Gastroesophageal reflux disease without esophagitis (Primary Dx); Cough, unspecified type; Acquired yuzjwsjqkqjziy51/21/2025Telephone [facility] [address] [facility] [address] [place] [address] [place] Chávez, ARLETTE 11/30/2024Telephone [facility] [address] [facility] [address] [place] [address] [place] Chávez, ARLETTE 11/23/2024Telephone [facility] [address] [facility] [address] [place] [address] [place] Chávez, PECAN GROWER 11/23/2024Telephone [facility] [address] [facility] [address] [place] [address] Arias Cruz MD 11/22/2024Telephone [facility] [address] [facility] [address] [place] [address] [place] Chávez, PECAN GROWER 11/02/2024bstract [facility] [address] [facility] [address] [place] [address] Unallocated, Katja Mccauley MD from Last 3 Months Social History Tobacco UseTypesPacks/DayYears UsedDateSmoking Tobacco: Never Assessed CommentsUnknownSex and Gender InformationValueDate RecordedSex Assigned at Not on fileLegal TjkSsoide45/15/2023 6:48 PM EDTGender IdentityNot on fileSexual OrientationNot on file Last Filed Vital Signs Vital SignReadingTime TakenCommentsBlood Pressure--Pulse--Temperature-- Respiratory Rate--Oxygen Saturation--Inhaled Oxygen Concentration--Svtgon28.9 kg (152 lb)04/03/2021 12:00 PM HMAGafrdb342.1 cm (5' 5 )04/26/2022 12:00 PM ESTBody Mass Index25.29004/03/2021 12:00 PM EST Plan of Treatment Not on file Insurance Care Teams Team MemberRelationshipSpecialtyStart DateEnd Aamir Navarrete MD [address] [facility] [place] [address] PCP - GeneralFamily Medicine08/12/22
--- OUTSIDE RECORDS SUMMARY | 2025-01-15 22:09 | XMS_ITS | Continuity of Care Document ---
Author Organization [facility] up Address [address] [id number] Insurance Providers Payer Plan Claims Address Claims Phone Policy Number Group Number Relation Employer Guarantor Name Guarantor Guarantor Address Guarantor Phone [place] [address] [place], [place] [address]qlk:[id number] [facility] [place], [place] [address] [address], [place] [address]upp:[phone] [address] [place], [place] [address]ICAREPO [address] [place], [place] [address]oqx:[phone] [id number] [address] [place] [address] Problems Condition ICD9 code ICD10 code SNOMED code Start Date End Date S tatus Muscle weakness (generalized)M62.8101/5ActiveDifficulty in walking, not elsewhere xdsyuheimeG22.2015Active Results No Results Allergies, adverse reactions, alerts Substance Reaction Date Status Type No allergies have been recorded Non Drug Medications No administered medications reported Vital Signs No vital signs reported Social History No smoking Hx information available
--- OUTSIDE RECORDS SUMMARY | 2025-01-15 22:09 | XMS_ITS | Encounter Summary ---
Author Organization [facility] Address [address] [place] [address] Care Team Providers Care Pourer Metal Name Role Phone Aamir Purcell MD Primary Care Provider [phone] Encounter Details DateTypeDepartmentCare Team (Latest Contact Info)Ddyksskqkbk05/19/2025bstract [facility] [address] [address] [place] [address] Aamir Purcell MD [address] [place] [address] Social History Tobacco UseTypesPacks/DayYears UsedDateSmoking Tobacco: Never Assessed CommentsUnknownSex and Gender InformationValueDate RecordedSex Assigned at Not on fileLegal AflWvdmuk76/15/2023 6:48 PM EDTGender IdentityNot on fileSexual OrientationNot on filedocumented as of this encounter Plan of Treatment Not on file documented as of this encounter Visit Diagnoses Not on filedocumented in this encounter Care Teams Team MemberRelationshipSpecialtyStart DateEnd Date Aamir Purcell MD [address] [place] [address] PCP - GeneralFamily Medicine08/12/22documented as of this encounter
--- OUTSIDE RECORDS SUMMARY | 2025-01-15 22:09 | XMS_ITS | Clinical Summary ---
Author Organization [facility] Address [address] [place] [address] Care Team Providers Care Scarrer Name Role Phone Aamir Purcell DO Primary Care Provider [phone] Social History Tobacco UseTypesPacks/DayYears UsedDateSmoking Tobacco: Never AssessedUT Safety & EnvironmentAnswerDate RecordedFear of Current or Ex-PartnerNot on file 04/10/2023Emotionally AbusedNot on file04/10/2023hysically AbusedNot on file 04/10/2023Sexually AbusedNot on file4Physically or Sexually AbusedNot on file04/10/2023CommentsUnknownSex and Gender InformationValueDate RecordedSex Assigned at BirthNot on fileLegal GuoIiedjw26/29/2022 10:27 PM EDT Gender IdentityNot on fileSexual OrientationNot on file Last Filed Vital Signs Vital SignReadingTime TakenCommentsBlood Lyciausm658/7307 2:28 PM EDT Pulse--Ijwnigtldof67.1 ??C (98.7 ??F)08/26/2018 2:24 PM EDTRespiratory Rate-- Oxygen Saturation--Inhaled Oxygen Concentration--Zuccge22.9 kg (152 lb) 08/26/2018 2:24 PM TWPXhbohp488.1 cm (5' 5 )08/26/2018 2:24 PM EDTBody Mass Index25.2907 2:24 PM EDT Plan of Treatment Health MaintenanceDue DateLast DoneCommentsCT Tlhhulmzpdmq1965Colonoscopy 1965Colorectal Cancer Raceejpxm1965FIT-DNA1965FIT1965 FOBT1965Medicare Annual Wellness (AWV)1965 5126Kmjmskerjtisg1963 Diabetes: Retinopathy Tstsntash42/21/1973Depression Ncxwemtdr88/21/1975Diabetes: Urine Protein Sjehsqsta73/21/1982Pap Smear02/07/1984Adult Egthaik0102/06/1985 Cervical Cancer Orazsjlau60/21/1993HPV/Spdvxn6802/06/19939987Uayvizjrs76/21/2003Zoster Vaccines (1 of 2)Diabetes: Hemoglobin A1C10/11/2018 07/11/2018COVID-19 [...] complete this topic Procedures Procedure NamePriorityDate/TimeAssociated DiagnosisCommentsHEMOGLOBIN Y5HPxmnl 07/11/2018 6:08 AM EDT from Last 3 Months or Most Recently Relevant to Health Maintenance Results * (ABNORMAL) Hemoglobin A1C (07/11/2018 6:08 AM EDT)ComponentValueRef RangeTest MethodAnalysis TimePerformed AtPathologist SignatureHemoglobin A1C8.9(H)4.0 - 6.0 %LAB CONVERSIONSEstimated Average Buancvh281(H)70 - 126 mg/dLLAB CONVERSIONSSpecimen (Source)Anatomical Location / [...] DateEnd Aamir Navarrete DO [address] [place] [address] [facility]10/19/21
--- OUTSIDE RECORDS SUMMARY | 2025-01-15 22:09 | XMS_ITS | Patient Health Record ---
Author Organization [facility] [place] Address [address] [place] [address] Care Team Providers Care Mascara Molder Name Role Phone Aamir Purcell DO Primary Care Provider Unavaila ble Reason For Referral No Information Problems Problem Type SNOMED Code ICD Code Onset Dates Problem Status W/U Status Risk Notes Problem Information temporarily unavaila ble Type 2 diabetes mellitus without complications (E11.9) ActiveconfirmedProblemInformation temporarily unavailableType 2 diabetes mellitus with foot ulcer (E11.621)ActiveconfirmedProblemInformation temporarily unavailable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)ActiveconfirmedProblemInformation temporarily unavailableLong term (current) use of insulin (Z79.4)ActiveconfirmedProblemInformation temporarily unavailableEncephalopathy (G93.40)ActiveconfirmedProblemInformation temporarily unavailableEssential hypertension (I10)ActiveconfirmedProblem Information temporarily unavailableMR (mitral regurgitation) (I34.0)Active confirmedProblemInformation temporarily unavailableAcquired hypothyroidism (E03.9)ActiveconfirmedProblemInformation temporarily unavailableThrombocytopenia (D69.6)ActiveconfirmedProblemInformation temporarily unavailable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)ActiveconfirmedProblem Information temporarily unavailableAgitation (R45.1)ActiveconfirmedProblem Information temporarily unavailableChronic ulcer of great toe of left foot, limited to breakdown of skin (L97.521)ActiveconfirmedProblemInformation temporarily unavailableChronic ulcer of great toe of left foot with fat layer exposed (L97.522)ActiveconfirmedProblemInformation temporarily unavailableType 2 diabetes mellitus without complication, unspecified whether ferry terminal supervisor insulin use (E11.9)ActiveconfirmedProblemInformation temporarily unavailable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)ActiveconfirmedProblemInformation temporarily unavailableIschemic ulcer of toe of right foot with fat layer exposed (L97.512) ActiveconfirmedProblemInformation temporarily unavailableGastroesophageal reflux disease, unspecified whether esophagitis present (K21.9)Activeconfirmed Plan Of Treatment No Information Insurance Providers Payer Name Payer Address Payer Phone Subscriber Number Group Number Insured Name Patient Relationship to Insured Coverage Start Date Coverage End Date [place] [address] [place] [address] [id number] Ladan Georges - [facility] [address] [address] [place] [address] [phone], TrudySelf - patient is the insured
--- OUTSIDE RECORDS SUMMARY | 2025-01-15 22:10 | XMS_ITS | Patient Health Record ---
Author Organization 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 Name Role Phone José Miguel Crouch;Jesse richey Primary Care Provider Un available Jose Filed Unavailable [phone] Allergies Allergen (clinical drug ingredient) Drug/Non Drug Allergy documented on EMR Reaction Allergy Type Onset Date Status Information temporarily unavailable Avelox Unknown Drug Allergy ActiveInformation temporarily unavailableMoxifloxacin HClUnknownDrug Allergy ActiveInformation temporarily unavailablePEG 3350UnknownDrug AllergyActive Information temporarily unavailableCephalexinUnknownDrug AllergyActive Reason For Referral No Information Medications Medication SIG (Take, Route, Frequency, Duration) Notes Start Date End Date Status Levothyroxine Sodium 100 MCG Tablet 1 ta blet in the morning on an empty stomach Orally Once a day ActiveCymbalta 60 MG Capsule Delayed Release Particles1 capsule Orally Once a dayActiveCarvedilol 12.5 MG Tablet1 tablet with food Orally Twice a dayActive Calcium Carbonate Antacid 1000 MG Tablet Chewable1 tablet Orally Once a day ActivetiZANidine HCl 4 MG Tablet1 tablet at bedtime as needed Orally Once a day ActiveOmeprazole 40 MG Capsule Delayed Release1 capsule 1/2 to 1 hour before morning meal Orally Once a dayActiveMeclizine HCl 25 MG Tablet1 tablet as needed Orally every 12 hrsActiveTrulicity 0.75 MG/0.5ML Solution Auto-injectoras directed SubcutaneousActiveBrimonidine Tartrate 0.2 % Solution1 drop into affected eye Ophthalmic every 8 hrsActiveInsulin Glargine-yfgn 100 UNIT/ML Solution Pen-injectoras directed SubcutaneousActiveAspirin 325 MG Tablet1 tablet Orally Once a dayActivetraMADol HCl 50 MG Tablet1 tablet as needed Orally Once a dayActiveDepakote ER 250 MG Tablet Extended Release 24 Hour1 tablet Orally twice a dayActive Social History Tobacco Use: Social History Observation Description Date Details (start date - stop date) Former Smoker NA - NA Social History Social HistorySocial InfoQuestionAnswerNotesalcoholDo you use alcohol?Does not drink alcoholmarital statusmarital statuswidowedtobacco usePatient is a:former smokerquit sAdditional DetailsCategorySocial InfoOptionsDetailsSocial Historyrecreational drug useno Problems Problem Type SNOMED Code ICD Code Onset Dates Problem Status W/U Status Risk Notes Problem Information temporarily unavaila ble Type 2 diabetes mellitus with diabetic peripheral angiopathy without gangrene (E11.51) ActiveconfirmedProblemInformation temporarily unavailableLong term (current) use of insulin (Z79.4)Cbahttehinphhjdn91ZmbikiqFgiidloypze temporarily unavailable 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)Activeconfirmed Vital Signs Blood pressure diastolic 70 mm Hg 08/05/2024 Kbagip49 in08/05/2024lood pressure pdcqozwl833 mm Hg08/05/20247219Ymekvk770 lbs 08/05/2024BMI25.7908/05/2024 Encounters Encounter Location Date Provider Diagnosis [facility] [address] [place] [address] 01/21/2024 [facility] [address] [place] [address]/06/2024 [facility] [address] [place] [address]/[facility] [address] [place] [address]/04/2024[facility] [address] [place] [address]/Jose Armstrong term (current) use of insulin Z79.4 ; Type 2 diabetes mellitus with diabetic peripheral angiopa thy without gangrene E11.51 and Acquired absence of other left toe(s) Z89.422 [facility] [address] [place] [address]/03/2024 [facility] Encounter Date Diagnosis (ICD Code) Assessment Notes Treatment Notes Treatment Clinical Notes Section Notes 08/05/2024 Type 2 diabetes bety itus with diabetic peripheral angiopathy without gangrene (ICD-10 [...] chose style of shoe in size10 medium. 08/05/2024Long term (current) use of insulin (ICD-10 - Z79.4)5Acquired absence of other left toe(s) (ICD-10 - Z89.422) Plan Of Treatment Next Appt Details Provider Name:Jose philip, 01/17/2025 03:15:00 PM, [address] [place] [address] Dr Leiva, [place], [address], Provider Name:Jose philip, 01/19/2025 03:00:00 PM, [address] [place] [address], [phone], Insurance Providers Payer Name Payer Address Payer Phone Subscriber Number Group Number Insured Name Patient Relationship to Insured Coverage Start Date Coverage End Date Medicare Part B J-15 Part [facility] Claims [address] [place] [address] [id number], TrudySelf - patient is the insured[facility] [address] [place] [id number], TrudySelf - patient is the insuredMedicaid [place] [facility] F[employer] [address] [place], [place] [id number], TrudySelf - patient is the insured Medical (General) History Medical History History ICD Code type II diabetes glaucomaidiopathic epilepsyanemiahypokalemiaanxietydepressionspinal stenosis hyperlipidemiahypothyroidismcardiac murmursleep apneapolyneuropathyhypertension asthmaGERDSurgical History Surgery Date(Month/Year) heart surgery neck surgeryHospitalization History Reason Date(Month/Year) see surgical hx
--- OUTSIDE RECORDS SUMMARY | 2025-01-15 22:12 | XMS_ITS | CCD ---
Author Organization [facility] CliniSyks Care Team Providers Care Jinriksha Driver Name Role Phone Neri Purcell Unavailable Pili Gilliam Unavailable [phone] Reji Miramontes Unavailable Unavailable Unavailable Unavailable Luis Miguel Kaur Unavailable Neri Purcell Unavailable Luis Miguel Kaur Unavailable Tisha Arriaga Unavailable Skylar Hernandez Unavailable [phone] Kartik Mejia Unavailable Pili Gilliam Admitting [...] Attending Unavaila Neri Shah Primary Care Provider [phone] Pili Gilliam Unavailable Reji Miramontes Unavailable Neri Purcell Primary Care Provider [phone] Pili Gilliam Unavailable Craske, W. Don Unavailable [...] Unavailable HOUSE, NERI P Primary Care Unavailable MARIEAL JR., JEF Attending Unavailable HOUSE, NERI P [...] Attending Unavailabl e PHYSICIAN PHYSICIAN, PCP PCP UNKNOWN~[phone] Primary Care Unavailable BANNING, KIKE Consulting Unavailable PRECIOUS, BLASE Attending Unavailable PRECIOUS, BLASE Admitting Unavailable BANNING, KIKE Consulting Unavailable BANNING, KIKE Consulting Unavailable BAUERLE, CLARISA Consulting Unavailable BAUERLE, CLARISA Consulting Unavailable BAUERLE, CLARISA Consulting Unavailable VAISHALI ERAZO Referring Unavailable PHYSICIAN PHYSICIAN, PCP PCP UNKNOWN~[phone] Primary Care Unavailable House DO, Neri P Primary Care Provider David VIVEROS, Skylar Rizo Unavailable Kartik Mejia MD Unavailable Tisha Arriaga MD Unavailable Luis Miguel Kaur MD Unavailable [phone] Lucas MERCADO, Chris A Unavailable Kartik [...] Sr Neri P Primary Care Provider [phone] House DO, Sr Neri P Primary Care Provider [phone] JERRY POZO Attending Unavailable HERCHER, JOHNY Referring Unavailable HOUSE, NERI Primary Care Unavailable JERRY POZO Admitting Unavailable KARLOS Perez Attending Provider [phone] HOUSE, NERI P Primary Care Unavailable [...] Ganga Savage MD Primary Care Provider Rufus Perez Attending Unavailable Rufus Perez Admitting Unavailable Ganga Savage MD Primary Care Provider GANGA SAVAGE Primary Care Unavailable ALISIA, ALISIA VAISHALI Referring Unavailable ALISIA, ALISIA VAISHALI Referring Unavailable JANETTE GANGA E Primary Care Unavailable ALISIA, ALISIA VAISHALI Referring Unavailable JANETTE, GANGA E Primary Care Unavailable [place] Neri VIVEROS Primary Care Provider Jami Onofre [...] TypeDate of OnsetReaction(s) FacilityCephalosporins (antibiotic) (3 sources)CephalexinDrug Pzvrstj59-44-4021XmmmwstJnefTlultzHvxjqi Agonists (3 sources)tapentadolDrug Qbtjhcg95-74-5144OmssbxlKliiPqpljkXbabhnknco (antibiotic) (3 sources)moxifloxacinDrug Jiaonon38-58-2519Wyzztcu, Swelling, Rash, Other (See Comments)[facility] (20 sources)cephalexin; Translations: [CEPHALEXIN]Propensity to adverse reactions to xusj15-68-5295Cpwazpq, Rash, Hives, Unknown, SwellingOhioHealth (20 sources)moxifloxacin; Translations: [MOXIFLOXACIN]Propensity to adverse reactions to csit68-08-0750Vfxywge, Swelling, Rash, Other (See Comments), UnknownOhioHealth (20 sources)tapentadol; Translations: [TAPENTADOL]Propensity to adverse reactions to povh10-52-1032WdrvmngAwtsXagpsm (20 sources)polyethylene glycol 3350 / potassium chloride / sodium bicarbonate / sodium chloride / sodium sulfateDrug Baddize96-25-5555QxipPremier Health [facility] Work Phone: (20 sources)tapentadolDrug Uyfuafs21-90-9837Rnzfw (See Comments)[facility] Work Phone: (3 sources)Cephalexin; Translations: [Keflex]Drug Hfcrvxv77-11-5160VtbSt. [facility] (3 sources)moxifloxacin; Translations: [Avelox]Drug Bkapoiv23-83-2455Rtm [facility] Repository (3 sources)tapentadol; Translations: [Nucynta]Drug Rpwiwmj36-82-1471Goo [facility] Repository (1 source)Bacitracin / Neomycin / Polymyxin BDrug Qdhqqkr71-60-9174ZmjCoshocton [facility] Repository (1 source)Calcium oxideDrug Hxywdir60-14-4970Fdu [facility] Repository (1 source)POLYETHYLENE GLYCOL 3350Drug Ewddvwc02-22-0221Wqy [facility] Repository (1 source)Sulfamethoxazole / TrimethoprimDrug Jqfvkjr03-71-7246Guw [facility] Repository (1 source)fentaNYL; Translations: [fentaNYL]Drug [facility]ergyTri[facility] (1 source)POLYETHYLENE GLYCOL 3350 / Potassium Chloride / Sodium Bicarbonate / Sodium Chloride / sodium sulfate; Translations: [GoLYTELY]Drug AllergyTri[facility] Repository (1 source)Shellfish; Translations: [shellfish]Propensity to adverse reactions (disorder)[facility] Repository (1 source)Shrimp product; Translations: [Shrimp]Propensity to adverse reactions (disorder)[facility] Repository (15 sources)Tapentadol hydrochlorideAllergy to cmcqmdizy42-15-0462QvsbjkzPYUF Healthcare Medications Current Medications MedicationDrug Class(es)DatesSig (Normalized)Sig (Original)acetaminophen 300 mg / codeine phosphate 30 mg oral tablet (20 sources)Opioid AgonistStart: 01-15-2017 End: 84-78-9040upze 1 tablet by mouth twice daily as needed for pain acetaminophen-codeine 300-30 MG Tab per tablet TAKE 1 TABLET BY MOUTH TWICE A DAY NEEDED FOR PAIN 0 01/15/2017 ActiveStart: 72-26-2641ihyyoknfyeecp-codeine 300-30 MG Tab per tablet hasn't used for a while patient reports 0 01/15/2017 Activeacetaminophen-codeine (TYLENOL #3) 300-30 mg per tablet every 6 (six) hours as needed. 0 ActiveacetaZOLAMIDE 250 mg oral tablet (6 sources)Carbonic Anhydrase InhibitorStart: 04-24-2018 End: 69-00-0868jnaw 1 tablet by mouth twice dailyacetaZOLAMIDE (DIAMOX) 250 MG tablet Take 250 mg by mouth 2 times daily 0 04/24/2018 06/28/2021 Discontinued (LIST CLEANUP)albuterol 0.83 mg/ml inhalation solution (15 sources)beta2-Adrenergic Agonistalbuterol (2.5 MG/3ML) 0.083% nebulizer solution Take 3 mL by nebulization every 4 (four) hours if needed Active amitriptyline hydrochloride 25 mg oral tablet (20 sources)Tricyclic Antidepressant End: 81-52-5281gwmrxzetktsti (Elavil) 25 MG tablet Take 1 tablet as needed by oral route. Activeaspirin 325 mg oral tablet (20 sources)Nonsteroidal Anti-inflammatory DrugStart: 11-22-2024 End: 29-24-7161qmne 1 tablet by mouth once dailyaspirin 325 MG tablet Indications: Primary hypertension Take 1 tablet (325 mg) by mouth Daily 30 tab let 11 11/22/2024 11/22/2025 ActiveStart: 07-85-8779bfsb 81 mg by mouth once daily81 mg, Oral, DAILY, First dose on 06/30/21 at 0900, Until Discontinued Start: 06-28-2021 End: 34-17-1310kplbmme chewable tablet 81 mgStart: 04-07-2017 End: 39-09-0389lfhf 1 tablet by mouth once dailyaspirin 325 MG tablet Take 325 mg by mouth daily 0 04/07/2017 ActiveStart: 25-36-1751uunv 1 tablet by mouth once dailyaspirin 325 MG EC tablet Take 1 (one) tablet (325 mg total) by mouth daily. 60 tablet 5 04/07/2017 Active End: 47-15-5797bfoi 1 tablet by mouth once dailyaspirin 81 MG EC tablet Take 81 mg by mouth daily. 04/07/2017 Discontinuedbisacodyl 10 mg rectal suppository (3 sources)Stimulant LaxativeStart: 07-29-2021 End: 65-00-8791Piqme: 42-20-6828xrbl 5 mg by mouth once daily as needed5 mg, Oral, DAILY PRN, Starting on Nohemy 06/28/21 at 2107, Until Discontinued, Constipation First linetherapy for constipation.brimonidine tartrate 2 mg/ml ophthalmic solution (20 sources)alpha-Adrenergic AgonistStart: 61-18-2358cjmozlovumu (AlphaGAN P) 0.2 % ophthalmic solution 05/11/2024 ActiveStart: 59-61-8669ktnh 1 drop(s) into the eye(s) twice dailybrimonidine (ALPHAGAN P) 0.15 % ophthalmic solution Apply 1 drop to eye 2 times daily Left eye 0 11/15/2019 ActiveStart: 88-81-4236larx 1 drop(s) into the eye(s) twice dailybrimonidine (ALPHAGAN) 0.15 % ophthalmic solution Administer 1 drop into the left eye 2 (two) timesa day . 0 11/15/2019 Activecalcium carbonate 1000 mg chewable tablet (2 sources)Start: 12-07-2024 End: 32-99-5986npxihve carbonate (Tums Ultra) 1000 MG chewable tablet Indications: Hypocalcemia Chew 1 tablet (1,000 mg) at bedtime 30 tablet 11 12/07/2024 12/07/2025 Activecalcium carbonate 600 mg / cholecalciferol 0.01 mg oral tablet (6 sources)Vitamin DStart: 51-89-0194Cxsiy: 56-71-2226lywh 2 tablets by mouth once dailycalcium carbonate-vitamin D3 (CALTRATE) 600-400 MG-UNIT TABS per tab Take 2 tablets by mouth daily 60 tablet 1 07/20/2021 Activecarvedilol 12.5 mg oral tablet (20 sources)alpha-Adrenergic Chemo, beta-Adrenergic BlockerStart: 07-17-2023 End: 97-10-8258yrdb 1 tablet by mouth in the morningcarvedilol (Coreg) 12.5 MG tablet Indications: Primary hypertension Take 1 tablet (12.5 mg) by mouth in the morning and 1 tablet (12.5 mg) before bedtime. 60 tablet 11 11/22/2024 11/17/2025 ActiveStart: 06-29-2021 End: 65-56-6069werw 1 dose by mouth once25 mg, Oral, ONCE, 1 dose, On Fri06/29/21 at 0200 Administer with food to minimize the risk of orthostatic hypotensionStart: 06-29-2021 End: 40-66-5227ugtl 25 mg by mouth twice daily at mg, Oral, 2 TIMES DAILY WITH MEALS, First dose on 07/15/21 at 0130, Until Discontinued Adminis ter with food to minimize the risk of orthostatic hypotensioncarvedilol (COREG) 25 MG tablet Take 12.5 mg by mouth 2 times daily (with meals) 0 Active chlordiazePOXIDE hydrochloride 5 mg oral capsule (3 sources)BenzodiazepineStart: 08-08-2021 End: 76-98-9671Nbwos: 08-05-2021 End: 05-26-9259cwvq 10 mg by mouth three times daily10 mg, Oral, 3 TIMES DAILY, First dose on 08/05/21 at 1400, Until Discontinuedcholecalciferol 0.125 mg oral capsule (9 sources)Vitamin DStart: 03-05-2018 End: 57-20-0427tcox 1 capsule by mouth once dailyCholecalciferol (VITAMIN D3) 5000 units CAPS Take 5,000 Units by mouth daily 0 03/05/2018 06/28/2021 Discontinued (LIST CLEANUP)Continuous Blood Gluc Sensor (FreeStyle Juanpablo 14 Day Sensor) Misc (7 sources)Start: 52-99-4517Mbniwbnret Blood Gluc Sensor (FreeStyle Juanpablo 14 Day Sensor) Misc Inject 2 Each under the skin every 14 days. 2 Each 3 03/16/2021 ActiveStart: 80-35-7627Cdtterecnw Blood Gluc Sensor (FreeStyle Juanpablo 14 Day Sensor) Misc Inject 2 Each under the skin every 14 days. 2 Each 3 08/14/2020 Xojoie047 ml dexmedetomidine 0.004 mg/ml injection (2 sources)Central alpha-2 Adrenergic AgonistStart: 19-73-7930vuvcdhgckme 20 mg/ml / timolol 5 mg/ml ophthalmic solution (20 sources)Carbonic Anhydrase Inhibitor, beta-Adrenergic BlockerStart: 82-70-7567jsdb 1 drop(s) into the eye(s) twice dailydorzolamide-timolol 22.3-6.8 MG/ML Solution ophthalmic solution Place 1 drop in both eyes 2 times daily. 10 mL 0 01/15/2021 ActiveStart: 85-64-2349irrw 1 drop(s) into the eye(s) twice dailydorzolamide-timolol 22.3-6.8 MG/ML Solution ophthalmic solution Place 1 drop in both eyes 2 times daily. Generic. 90 day supply. 10 mL 3 09/04/2020 ActiveStart: 09-76-0653Aeveo: 52-38-1335umwn 1 drop(s) into the eye(s) twice dailydorzolamide-timolol (COSOPT) 22.3-6.8 MG/ML ophthalmic solution Place 1 drop into the right eye 2 times daily 0 08/08/2017 ActiveStart: 08-08-2017 End: 72-17-1127raze 1 drop(s) into the eye(s) twice dailydorzolamide-timoloL (COSOPT) 22.3-6.8 mg/mL ophthalmic solution Apply 1 drop to eye 2 (two) times a day . 0 08/08/2017 Activedoxycycline monohydrate 100 mg oral capsule (20 sources)Tetracycline-class DrugStart: 64-52-2756imms 1 capsule by mouth twice dailydoxycycline (Monodox) 100 MG capsule Indications: Traumatic ulcer of left foot, unspecified ulcer stage (HCC) Take 1 capsule, by mouth, bid x 7 days 14 capsule 08/27/2024 ActiveStart: 57-77-3583wsspqzlwmcx (Vibramycin) 100 MG capsule 04/15/2024 ActiveStart: 07-09-2021 End: 84-63-8139Ouatc: 05-01-2021 End: 74-62-0509neho 1 capsule by mouth twice dailydoxycycline hyclate (VIBRAMYCIN) 100 MG capsule Take 1 (one) capsule (100 mg total) by mouth 2 (two) times a day for 7 days . 14 capsule 0 05/01/2021 05/08/2021 ActiveStart: 12-06-2020 End: 05-00-2766qqxo 1 capsule by mouth twice dailydoxycycline hyclate (VIBRAMYCIN) 100 MG capsule Take 1 (one) capsule (100 mg total) by mouth 2 (two) times a day for 7 days . 14 capsule 0 12/06/2020 12/13/2020 ExpiredStart: 05-29-2018 End: 64-62-0877gwhm 1 tablet by mouth twice dailydoxycycline hyclate (VIBRA- TABS) 100 MG tablet Take 1 (one) tablet (100 mg total) by mouth 2 (two) times a day for 7 days . 14 tablet 0 05/29/2018 06/05/2018 Active End: 40-72-1450RRFZAAXDMLI PO Take by mouth. 01/05/2018 DiscontinuedDULoxetine 60 mg delayed release oral capsule (16 sources)Serotonin and Norepinephrine Reuptake InhibitorStart: 12-07-2024 End: 40-79-2142midc 1 capsule by mouth once dailyDULoxetine (Cymbalta) [address] capsule Indications: Current mild episode of major depressive disorder, unspecified whether recurrent Take 1 capsule (60 mg) by mouth Daily 30 capsule 11 12/07/2024 12/02/2025 Activeezetimibe 10 mg oral tablet (7 sources)Dietary Cholesterol Absorption InhibitorStart: 69-12-7189joro 1 tablet by mouth once dailyezetimibe (Zetia) 10 MG tablet Take 1 tablet by mouth daily. 30 tablet 3 03/20/2021 ActiveStart: 84-97-0580dyfz 1 tablet by mouth once dailyezetimibe (Zetia) 10 MG tablet Take 1 tablet by mouth daily. 30 tablet 3 05/18/2020 Activefamotidine 20 mg oral tablet (6 sources)Histamine-2 Receptor AntagonistStart: 58-29-2235brblqoitwm (PEPCID) 20 MG tablet 1 tablet by Per NG tube route 2 times daily 60 tablet 3 08/10/2021 ActiveStart: 97-20-7017Oqwfl: 59-04-335847 mg, Per NG tube, 2 TIMES DAILY, First dose on Nohemy 08/02/21 at 2100, Until Discontinued IV to PO change per P&T policy ferrous sulfate 325 mg delayed release oral tablet (6 sources)Start: 11-22-2024 End: 41-21-6222vqzf 1 tablet by mouth at mealtimeferrous sulfate (Fe Tabs) 325 (65 Fe) MG EC tablet Indications: Other iron deficiency anemia Take 1tablet (325 mg) by mouth in the morning. Take with meals. Do not crush, chew, or split. 30 tablet 11 11/22/2024 11/22/2025 Activefluocinonide 0.0005 mg/mg topical ointment (3 sources)CorticosteroidStart: 08-19-2023 End: 29-02-9293klukbiwwasce (Lidex) 0.05 % ointment Indications: Other atopic dermatitis Apply topically 2 (two) times a day as needed for rash 180 g 11 08/19/2023 08/18/2024 ActiveFreestyle Juanpablo 14 Day [place] Essie (5 sources)Start: 01-05-2018 End: 57-06-5318Nmfwjftuv Juanpablo 14 Day Sensor Misc (6 sources)Start: 63-41-7288Wxtji: 01-05-2018 End: 71-71-0920Mizqf: 01-05-2018 End: 34-83-3062jupvxJXHS 10 mg oral tablet (20 sources)SulfonylureaglipiZIDE (Glucotrol) 10 MG tablet 1 (one) time each day at the same time Active End: 46-45-4553oeee 1 tablet by mouth twice daily before mealtimeglipiZIDE (GLUCOTROL) 5 MG tablet Take 5 mg by mouth 2 times daily (before meals) 0 06/28/2021 Discontinued (LIST CLEANUP)12 hr guaiFENesin 600 mg extended release oral tablet (4 sources)Start: 11-30-2024 End: 58-67-2291khde 2 tablets by mouth in the morning, [...] 2 times daily. Rash on arms 0 Uhcnnd476 ml immunoglobulin g, human 100 mg/ml injection [...] 100 unt/ml pen injector (20 sources)Insulin AnalogStart: 59-35-9651Aajnysl Degludec (Tresiba FlexTouch) 100 UNIT/ML Solution Pen-injector injection Indications: Type 1 diabetes mellitus with diabetic neuropathy Inject 25 Units under the skin at bedtime. 900 mL 3 03/20/2021 ActiveStart: 06-23-2020 End: 31-20-1147Chkxdmw Degludec (Tresiba FlexTouch) 100 UNIT/ML Solution Pen- injector injection 3 samples given--Lot [id number], exp 10/2021 3 Prefilled Pen/Syringe 0 06/23/2020 ActiveStart: 15-11-5955Sbwfdag Degludec (Tresiba FlexTouch) 100 UNIT/ML Solution Pen-injector injection Indications: Type 1 diabetes mellitus with diabetic neuropathy Inject 25 Units under the skin at bedtime. 3 Prefilled Pen/Syringe 4 07/21/2019 ActiveStart: 05-25-2018 End: 20-17-7456Cfgqnks Degludec (TRESIBA FLEXTOUCH) 100 UNIT/ML SOPN Inject 300 Units into the skin nightly 0 05/25/2018 06/28/2021 Discontinued (LIST CLEANUP) Start: 23-37-7640Ozdhdxh Degludec (TRESIBA FLEXTOUCH) 100 UNIT/ML Solution Pen- [...] 100 unt/ml pen injector (20 sources)Insulin AnalogStart: 12-51-8004Rtywpidt KwikPen 100 UNIT/ML pen 08/15/2023 ActiveStart: 42-67-3074wgccyr 10 [IU] by subcutaneous injection once daily10 Units, SubCUTAneous, NIGHTLY, First dose (after last modification) on Fri08/10/21 at 2100, UntilDiscontinuedStart: 08-08-2021 End: 30-22-9225jfnisg 5 [IU] by subcutaneous injection once daily5 Units, SubCUTAneous, NIGHTLY, First dose on Fri08/08/21 at 2100, Until Discontinued Start: 08-04-2021 End: 54-71-7151swjxkf 20 [IU] by subcutaneous injection once daily20 Units, SubCUTAneous, NIGHTLY, First dose (after last modification) on Fri08/04/21 at 2100, UntilDiscontinuedStart: 08-03-2021 End: 83-31-9738eavsix 8 [IU] by subcutaneous injection once daily8 Units, SubCUTAneous, NIGHTLY, First dose on Fri08/03/21 at 2100, Until Discontinued Start: 06-30-2021 End: 55-31-5258fwocck 16 [IU] by subcutaneous injection once daily16 Units, SubCUTAneous, NIGHTLY, First dose on Fri07/21/21 at 2100, Until Discontinued Start: 06-29-2021 End: 02-51-4708vsufue 10 [IU] by subcutaneous injection once daily10 [...] medicated patch (5 sources)Antiarrhythmic, Amide Local AnestheticStart: 00-80-2648eskxh 1 dose transdermal route every twelve hours1 patch, TransDERmal, Administer over 12 Hours, DAILY, First dose (after last modification) on Fri07/03/21 at 0030 Apply patch to left posterior neck. Patch may remain in place forup to 12 hours in any 24 hour period.Start: 30-94-6585mnktkweru 5 % Patch patch Indications: CIDP (chronic inflammatory demyelinating polyneuropathy) Place 1 patch on skin every 24 hours. Max of 12 hours of application then remove. 30 patch 1 0540Aejeen4 ml liraglutide 6 mg/ml pen injector (6 sources)GLP-1 Receptor AgonistStart: 51-33-0367ORLDLFS 18 MG/3ML Solution Pen-injector injection INJECT 1.8 MG SUBCUTANEOUSLY ONCE DAILY 3 Syringe3 10/09/2017 Active1 ml LORazepam 2 mg/ml injection (6 sources)BenzodiazepineStart: 08-10-2021 End: 76-53-1651Hkxew: 07-28-2021 End: dose, Starting on 07/28/21 at [...] hydrochloride 25 mg oral tablet (15 sources)AntiemeticStart: 83-07-6891mhowdgdhu (Antivert) 25 MG tablet 04/15/2024 Active1 ml morphine sulfate 2 mg/ml cartridge (1 source)Opioid AgonistStart: 44-95-8194epiu 1 mg by mouth every four hours [...] with minerals) tablet (3 sources)Start: 11-30-2024 End: 97-84-1309kpyq 1 tablet by mouth once dailyMultiple Vitamins-Minerals (multivitamin with minerals) tablet Indications: Other iron deficiency anemia Take 1 tablet by mouth Daily 30 tablet 11 11/30/2024 11/30/2025 Active MULTIVITAMIN ORAL (20 sources)MULTIVITAMIN ORAL daily. 0 ActiveMULTIVITAMIN ORAL daily. Active mupirocin 0.02 mg/mg topical ointment (20 sources)RNA Synthetase Inhibitor AntibacterialStart: 05-29-2018 End: 39-94-3959zpsyyarhp (BACTROBAN) 2 % ointment Apply topically 3 (three) times a day for 7 days . 30 g 0 05/01/2021 05/08/2021 Activenafcillin 2000 mg injection (1 source)Penicillin-class AntibacterialStart: 08-10-2021 End: 40-60-3280kfowcrwla infusion (1 source)Start: 07-09-2021 End: 26-75-4566bxuskrqgk infusion Infuse 2,000 mg intravenously every 4 hours Till 08/20/21 Then stop iv AB and pullthe line Cbc diff and creat q MWF while on this AB Compound per protocol 504 g 0 07/09/2021 08/20/2021 Activenaproxen 500 mg oral tablet (6 sources)Nonsteroidal Anti-inflammatory DrugStart: 43-73-1039ktun 1 tablet by mouth three times daily at mealtimenaproxen 500 MG Tab tablet Take 1 tablet by mouth 3 times daily with meals. 20 tablet 0 12/15/2017 Activenetarsudil 0.2 mg/ml ophthalmic solution (3 sources)Rho Kinase InhibitorStart: 71-05-3067gmys 1 drop(s) into the eye(s) at bedtimeNetarsudil Dimesylate (Rhopressa) 0.02 % Solution Place 1 drop in both eyes at bedtime. 5 mL 0 02/15/2021 ActiveStart: 82-77-6332Fdplegcuqh Dimesylate (Rhopressa) 0.02 % Solution Samples of this drug were given to the patient. 5mL 0 10/11/2020 ActiveStart: 11-21-2017 End: 76-34-7235nyxk 1 drop(s) into the eye(s) at bedtimeNetarsudil Dimesylate (RHOPRESSA) 0.02 % Solution Place 1 drop in both eyes at bedtime. 1 Bottle 0 1 01/07/2018 Discontinuednetarsudil mesylate 0.285 mg/ml ophthalmic solution (4 sources)Start: 50-79-9421filk 1 drop(s) into the eye(s) at bedtimeNetarsudil Dimesylate (RHOPRESSA) 0.02 % Solution Place 1 drop in both eyes at bedtime. 1 Bottle 0 11/21/2017 ActiveNONFORMULARY (4 sources)NONFORMULARY Tube feedings per ng tube at 65/hr 0 Activenortriptyline 25 mg oral capsule (6 sources)Tricyclic AntidepressantStart: 64-09-7650iclvvfzfnpumm 25 MG Cap capsule Week 1 - 1 tab QHS. Week 2 - 2 tabs QHS. Week 3 onwards - 3 tabs QHS 90 capsule 5 12/24/2017 Activeomeprazole 40 mg delayed release oral capsule (16 sources)Proton Pump InhibitorStart: 12-23-2024 End: 38-04-7908flji 1 capsule by mouth before mealtimeomeprazole (PriLOSEC) [address] capsule Indications: Gastroesophageal reflux disease without esophagitis Take 1 capsule (40 mg) by mouth in the morning. Take before meals. Do not crush or chew. 30 capsule 12/23/2024 01/22/2025 ActiveStart: 08-08-2023 End: 61-20-4504rxauhkadyz (PriLOSEC) [address] capsule 08/08/2023 12/13/2024 Discontinued (Reorder)oxyCODONE hydrochloride 5 mg oral tablet (2 sources)Opioid AgonistStart: 08-01-2021 End: 36-36-8999xhmhrrdgznzl 30 mg oral tablet (6 sources)Peroxisome Proliferator Receptor alpha Agonist, Peroxisome Proliferator Receptor gamma Agonist, ThiazolidinedioneStart: 81-70-7051jjyz 1 tablet by mouth once dailypioglitazone 30 MG Tab tablet Indications: Type 2 diabetes mellitus with diabetic polyneuropathy, without long-term current use of insulin Take 1 tablet by mouth daily. 90 tablet 1 07/21/2017 Activepotassium chloride 20 meq extended release oral tablet (20 sources)Start: 11-23-2024 End: 06-34-7184nkoa 1 tablet by mouth once dailypotassium chloride [...] Fri07/26/21at 0800, at 50 mL/hrStart: 07-14-2021 End: 28-53-9046vcxcemssv chloride 10 mEq/100 mL IVPB (Peripheral Line)Start: 07-08-2021 End: 80-33-881305 mEq, IntraVENous, EVERY HOUR, 4 doses, First dose on Fri07/08/21 at 0800, Last dose on Fri07/08/21 at 1100, at 100 mL/hrStart: 07-06-2021 End: 03-40-949792 mEq, IntraVENous, EVERY HOUR, 4 doses, First [...] 25 mg oral tablet (7 sources)Atypical AntipsychoticStart: 05-79-5674ensz 1 tablet by mouth once dailyQUEtiapine (SEROQUEL) 25 MG tablet Take 1 tablet by mouth nightly 60 tablet 3 08/10/2021 ActiveStart: 08-07-2021 End: 12-24-4306srxz 50 mg by mouth once daily50 mg, Oral, NIGHTLY, First dose (after last modification) on Fri08/07/21 at 2100, Until Qehbazdfirmi3578 ml sodium chloride 9 mg/ml injection (20 sources)Start: 35-73-6304YuxqaDACvun, at 10 mL/hr, CONTINUOUS, Starting on Fri07/29/21 [...] Central Line = 20 mL/lumenStart: 07-24-2021 End: 01-82-2752UfczwEOPtvt, at 10 mL/hr, CONTINUOUS, Starting on Fri07/25/21 at 2145Start: 07-18-2021 End: ,000 mL (16.5 mL/kg), IntraVENous, at 1,935.5 mL/hr, Administer over 31 Minutes, ONCE, On Fri07/18/21 at 1300, For 1 doseStart: 07-14-2021 End: 58-59-1610kzqq 1 dose intravenously twice daily5-40 mL, IntraVENous, [...] Central Line = 20 mL/lumenStart: 07-14-2021 End: 76-67-0846RlqzrKQHrwk, at 75 mL/hr, CONTINUOUS, Starting on 07/14/21 [...] or less into rate field of order.Start: 37-21-7091besx 5- 40 mL intravenously once as needed5-40 [...] Midline or Central Line = 20 mL/lumenStart: 24-15-0141XwfdbQEKdsa, at 5-250 mL/hr, PRN, if patient receiving [...] Central Line = 20 mL/lumenStart: 06-29-2021 End: 28-48-0217VqjwwGFRbgk, at 100 mL/hr, CONTINUOUS, Starting on Fri06/29/21 at 1400Start: 36-17-9202qvsd 1 dose intravenously twice daily5-40 mL, IntraVENous, [...] Midline or Central Line = 20 mL/lumenStart: 84-40-1118ypqv 5-40 mL intravenously once as needed5-40 mL, [...] 100 mg/ml oral suspension (15 sources)Aluminum ComplexStart: 75-14-6735qyrfrbeyty (Carafate) 1 GM/10ML suspension 08/15/2023 Activesulfamethoxazole 800 mg / trimethoprim 160 mg oral tablet (3 sources)Dihydrofolate Reductase Inhibitor Antibacterial, Sulfonamide AntimicrobialStart: 09-14-2020 End: 56-77-2710rfye 1 tablet by mouth twice dailysulfamethoxazole-trimethoprim 800-160 MG per tablet TAKE 1 TABLET BY MOUTH TWICE DAILY FOR 10 DAYS 0 09/14/2020 ActiveTegaderm Contact Layer 3 X4 Pads (1 source)Start: 61-06-5514Jmrsy Pads & Dressings (TEGADERM CONTACT LAYER) 3 X4 Pads To be used with Juanpablo [employer] every 14 days. 2 Each 4 01/19/2018 Active thioctic acid 300 mg oral tablet (15 sources)Start: 12-24-2017 End: 20-61-8803mbjg 1 tablet by mouth twice dailyAlpha-Lipoic Acid 300 MG TABS Take 300 mg by mouth 2 times daily 0 12/24/2017 06/28/2021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 [Stupor]EpisodicCoronary atherosclerosis and other heart disease (7 sources)Coronary atherosclerosis; Translations: [Atherosclerotic heart disease of [place] coronary artery without angina pectoris]Onset: 06-24-2012 47-56-9009ZdyccstMxuxhvzfrv and other anemia (4 sources)Anemia due to blood loss; Translations: [Iron deficiency anemia secondary to blood loss (chronic)]Onset: 559461-01-3456MsotojsVzzjysbjil and other anemia (6 sources)Normocytic anemia; Translations: [Anemia, unspecified]Episodic Deficiency and other anemia (2 sources)Iron deficiency anemia; Translations: [Other iron deficiency anemias] 76-06-9692BixkhhkwWutgkgwk, dementia, and amnestic and other cognitive disorders (4 sources)Delirium due to multiple etiological factors; Translations: [Delirium due to known physiological condition]Onset: 894601-81-1453EtdztbjGouoelwt mellitus with complications (20 sources)Type 2 diabetes mellitus with ulcer; Translations: [Type 2 diabetes mellitus with foot ulcer]Onset: 237644-18-2285SgxeoftJtffniuy mellitus without complication (18 sources)Type 2 diabetes mellitus without complication; Translations: [Diabetes mellitus]Onset: 831991-37-4045ArfnkniDdtopndo of white blood cells (10 sources)Leukocytosis; Translations: [Elevated white blood cell count, unspecified]ChronicDisorders of lipid metabolism (20 sources)Mixed hyperlipidemia; Translations: [Hypercholesterolemia]Onset: 893150-98-5583UypjktqHjxpvstpvopo (except that caused by tuberculosis or sexually transmitted disease) (4 sources)Encephalitis; Translations: [Encephalitis and encephalomyelitis, unspecified]EpisodicEsophageal disorders (8 sources)Gastroesophageal reflux disease; Translations: [Gastro-esophageal reflux disease without esophagitis]Onset: 091827-36-9529UovaszbDnezspelo hypertension (20 sources)Benign essential hypertension; Translations: [Hypertensive disorder] Onset: 656685-44-7160SotudvvAuell and electrolyte disorders (12 sources)Hypokalemia; Translations: [Hypokalemia]Onset: 17-44-9863Gmwehlhi Gastrointestinal hemorrhage (8 sources)Upper gastrointestinal bleeding; Translations: [Gastrointestinal hemorrhage, unspecified]EpisodicGlaucoma (20 sources)Glaucoma; Translations: [Unspecified glaucoma]Onset: 06-24-2012 ChronicHeadache; including migraine (15 sources)Headache; Translations: [Headache]Onset: EpisodicInfective arthritis and osteomyelitis (except that caused by tuberculosis or sexually transmitted disease) (20 sources)Osteomyelitis; Translations: [Osteomyelitis, unspecified]Onset: 68-44-6242RlrghcsVavam disorders and dislocations; trauma-related (5 sources)Derangement of right knee; Translations: [Unspecified internal derangement of right knee]Onset: 503483-30-2826CdonriqWpuk disorders (1 source)Mild major depression, single episode; Translations: [Major depressive disorder, single episode, mild]94-13-0889AvhcnjeJnfbat and vomiting (9 sources)Nausea and vomiting; Translations: [Nausea with vomiting, unspecified]EpisodicNeoplasms of unspecified nature or uncertain behavior (13 sources)Monoclonal gammopathy of uncertain significance; Translations: [Monoclonal gammopathy]Onset: 796927-10-6611KrftgyjYkcyghjzjyy deficiencies (7 sources)Vitamin D deficiency; Translations: [Vitamin D deficiency, unspecified]Onset: 306486-27-6977GslaidoSdlj wounds of extremities (2 sources)Avulsion injury of fingernail; Translations: [Laceration of right thumb]EpisodicOsteoarthritis (20 sources)Osteoarthritis of joint of bilateral hands; Translations: [Primary osteoarthritis, right hand]Onset: 266068-89-0772JhxovdrSbtul aftercare (20 sources)Patient encounter status; Translations: [FPC (current) use of non-steroidal anti-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 (NSAID)]Onset: 059911-06-4256Pvxhrzrn Other aftercare (1 source)Long-term current use of antibiotic; Translations: [long term care administrator (current) use of antibiotics]EpisodicOther PHOTO LAB TECHNICIAN infection and poliomyelitis (9 sources)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; 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]EpisodicOther connective tissue disease (2 sources)Pain in hallux; Translations: [Pain in left toe(s)]EpisodicOther connective tissue disease (4 sources)History of cervical spine fusion; Translations: [Arthrodesis status] Onset: 59-60-7552SmlbbrqvLutin gastrointestinal disorders (7 sources)Irritable bowel syndrome; Translations: [Irritable bowel syndrome without diarrhea]Onset: 877138-94-7894PnledloEdmye injuries and conditions due to external causes (1 source)Local infection of wound; Translations: [Other injury of unspecified body region, initial encounter]EpisodicOther lower respiratory disease (1 source)Shortness of breath; Translations: [Shortness of breath]Onset: 00-57-7222LyqickmbEeeyl lower respiratory disease (2 sources)Cough; Translations: [Cough, unspecified type]95-67-0104PqaqmphaHrvht nervous system disorders (20 sources)Chronic inflammatory demyelinating polyradiculoneuropathy; Translations: [Chronic inflammatory demyelinating polyneuritis]Onset: 06-24-2018 ChronicOther nervous system disorders (7 sources)Neuropathy of upper limb; Translations: [Unspecified mononeuropathy of unspecified upper limb]Onset: 054986-76-6173YqmltknYycop nervous system disorders (9 sources)Disorder of brain; Translations: [Encephalopathy, unspecified]Chronic Other nervous system disorders (9 sources)Metabolic encephalopathy; Translations: [Metabolic encephalopathy] Onset: 21-69-1073FzxowsdVqxsj nervous system disorders (2 sources)Chronic inflammatory demyelinating polyneuritis; Translations: [Chronic inflammatory demyelinating polyneuritis]Onset: 04-43-0363FprlsjkFgmxf nervous system disorders (4 sources)Toxic metabolic encephalopathy; Translations: [Toxic metabolic encephalopathy]19-92-1231GaavpqqhSgyrn nutritional; endocrine; and metabolic disorders (7 sources)POEMS syndrome; Translations: [Other disorders of plasma-protein metabolism, not elsewhere classified]Onset: 998991-83-7278UivsihnVqoka nutritional; endocrine; and metabolic disorders (7 sources)Hypomagnesemia; Translations: [Hypomagnesemia]Onset: 07-15-2021 ChronicOther nutritional; endocrine; and metabolic disorders (1 source)Hypocalcemia; Translations: [Hypocalcemia]26-31-0560DjwwsozIvzif nutritional; endocrine; and metabolic disorders (8 sources)Unintentional weight loss; Translations: [Abnormal weight loss] EpisodicOther nutritional; endocrine; and metabolic disorders (6 sources)Feeding problem; Translations: [Feeding difficulties]EpisodicOther screening for suspected conditions (not mental disorders or infectious disease) (9 sources)Elevated C-reactive protein; Translations: [Elevated C-reactive protein (CRP)]EpisodicOther upper respiratory disease (5 sources)Chronic rhinitis; Translations: [Chronic rhinitis]Onset: 09-26-2020 73-19-8814LvflyisLqnne upper respiratory disease (4 sources)Finding of respiratory device; Translations: [Encounter for attention to tracheostomy]Onset: 219958-74-0598BhlvdxmSqxlj upper respiratory disease (4 sources)Tracheostomy present; Translations: [Tracheostomy status]Onset: 299252-72-3125FkblmcbEpsqk upper respiratory disease (4 sources)Nasal discharge; Translations: [Other specified disorders of nose and nasal sinuses]69-02-0802LoowunhzMkucm upper respiratory infections (4 sources)Acute pansinusitis; Translations: [Acute pansinusitis, unspecified] 24-83-1580JkqledogWocpoipez (except that caused by tuberculosis or sexually transmitted disease) (1 source)Infective pneumonia; Translations: [Pneumonia, unspecified organism] EpisodicResidual codes; unclassified (6 sources)Tube feeding diet; Translations: [Other specified health status] EpisodicRespiratory failure; insufficiency; arrest (adult) (10 sources)Acute hypoxemic respiratory failure; Translations: [Acute respiratory failure with hypoxia]Onset: 43-98-9433EejcgjdvKuzu and subcutaneous tissue infections (17 sources)Cellulitis of right lower limb; Translations: [Cutaneous abscess of left hand]Onset: 54-64-1284MtcbfxnnPrrg and subcutaneous tissue infections (1 source)Cellulitis of finger of left hand; Translations: [Cellulitis of left finger]Onset: 596981-11-2176Giebefgwftd; intervertebral disc disorders; other back problems (20 sources)Degeneration of cervical intervertebral disc; Translations: [Other cervical disc degeneration, unspecified cervical region]Onset: 03-19-2018 96-52-9784LhkwpzgYvbcwqkowxn; intervertebral disc disorders; other back problems (14 sources)Neck pain; Translations: [Cervicalgia]Onset: EpisodicThyroid disorders (20 sources)Hypothyroidism; Translations: [Hypothyroidism, unspecified]Onset: 977950-86-4951KtbryysFakcfvwfxkkg (13 sources)Sleep apnea; Translations: [Sleep apnea, unspecified]10-10-2017 ChronicUnclassified (2 sources)Post Op Visit; Translations: [Post Op Visit]Onset: 02-15-2021 Unclassified (2 sources)Intraocular Pressure Check; Translations: [Intraocular Pressure Check]Onset: 12-26-2020 Past or Other Problems Problem ClassificationProblemDateDocumented DateEpisodic/ChronicAbdominal hernia (7 sources)Diaphragmatic hernia; Translations: [Diaphragmatic hernia without obstruction or gangrene]Onset: 557157-27-7183PpizmfppUjmicegemuufcy/social admission (4 sources)Discharge status; Translations: [Encounter for administrative examinations, unspecified]Onset: 943654-46-8144KdatwuwqQmhmipw dysrhythmias (7 sources)Palpitations; Translations: [Palpitations]Onset: EpisodicComplications of surgical procedures or medical care (4 sources)Ventilator associated pneumonia; Translations: [Ventilator associated pneumonia]Onset: 762934-00-6356OssbxfheZrinxnjcwe and other anemia (7 sources)Anemia; Translations: [Anemia, unspecified]Onset: 01-22-2018 77-37-5455JofgziiqVurlpqop of lower limb (20 sources)Closed fracture of first metatarsal bone ; Translations: [Displaced fracture of first metatarsal bone, left foot, subsequent encounter for fracture with routine healing]Onset: 03-47-4492GqabtrbuEpuldnz and fatigue (7 sources)Fatigue; Translations: [Other fatigue]Onset: EpisodicNonspecific chest pain (17 sources)Chest pain; Translations: [Other chest pain]Onset: 10-09-2017 17-20-6311PqfpvyzaBazif bone disease and musculoskeletal deformities (7 sources)Disorder of skeletal system; Translations: [Disorder of bone, unspecified]Onset: 945210-06-5588VavnfkobUrteu bone disease and musculoskeletal deformities (7 sources)X-ray evidence of poor mineralization; Translations: [Other specified disorders of bone density andstructure, unspecified site]Onset: 03-19-2018 75-33-0253HhhiiopaTiptw circulatory disease (7 sources)H/O: cardiovascular disease; Translations: [Personal history of other diseases of the circulatory system]Onset: 581330-31-8848NuhfhrtdImisk connective tissue disease (7 sources)Pain of bilateral hands; Translations: [Pain in right hand]Onset: 112933-90-5934RxnuvfioEpwdj connective tissue disease (7 sources)Biceps tendinitis; Translations: [Bicipital tendinitis, right shoulder]Onset: 342127-19-6888FydyfxdeFvrxi connective tissue disease (7 sources)Bilateral rotator cuff tendinitis; Translations: [Other shoulder lesions, right shoulder]Onset: 279968-89-3867PazouhuzMxnqm connective tissue disease (4 sources)Arthrodesis status; Translations: [Arthrodesis status]Onset: 01-37-5597PfzvaetrJtzwn eye disorders (17 sources)Dry eyes; Translations: [Dry eye syndrome of bilateral lacrimal glands]Onset: 992810-93-9437MdsrrbxkKclfr injuries and conditions due to external causes (7 sources)Injury of left knee; Translations: [Unspecified injury of left lower leg, initial encounter]Onset: 01-22-2018 Resolved: 086195-74-1260IxadtymoIhuec injuries and conditions due to external causes (7 sources)Injury of right knee; Translations: [Unspecified injury of right lower leg, initial encounter]Onset: 01-22-2018 Resolved: 314619-35-6748WakaxwirLtoio liver diseases (7 sources)Alkaline phosphatase raised; Translations: [Abnormal levels of other serum enzymes]Onset: 737836-44-0495ThkgcyafStyof nervous system disorders (4 sources)Cerebrospinal fluid leak; Translations: [Other cranial cerebrospinal fluid leak]Onset: 362364-47-5137BlwmskftNfybk nervous system disorders (4 sources)Cerebrospinal fluid rhinorrhea; Translations: [CSF rhinorrhea]Onset: 031547-50-3008ChakdnoqInkpv non-traumatic joint disorders (1 source)Pain in right knee; Translations: [Pain in joint, lower leg]Onset: 246972-45-8918WarokvvoZhqht non-traumatic joint disorders (7 sources)Shoulder pain; Translations: [Pain in right shoulder]Onset: 628427-54-0113YzumbgscOzcgh non-traumatic joint disorders (7 sources)Bilateral wrist pain; Translations: [Pain in right wrist]Onset: 585656-38-1876FlgeqzhyRzqxk non-traumatic joint disorders (7 sources)Pain in right hip joint; Translations: [Pain in right hip]Onset: 769543-26-0289BkkvrbjxWctno non-traumatic joint disorders (6 sources)Knee pain; Translations: [Pain in right knee]Onset: 01-22-2018 74-77-1703JyynvieqQqgszpfl codes; unclassified (7 sources)Postmenopausal state; Translations: [Asymptomatic menopausal state] Onset: 742204-22-5418WnozvmssXfzyflzz codes; unclassified (9 sources)Altered mental status; Translations: [Altered mental status, unspecified]Onset: 34-49-4696AricpudcLrdtzlmspk (except in labor) (20 sources)Sepsis due to Staphylococcus aureus; Translations: [Sepsis due to Methicillin susceptible Staphylococcus aureus]Onset: 78-61-5215RchrzbkxDyaiqsl disorders (18 sources)Disorder of thyroid gland; Translations: [Disorder of thyroid, unspecified]Onset: 08-77-7579ZkrdguqwHkhfwurllsch (2 sources)Traumatic ulcer of left foot, unspecified ulcer stage (HCC)08-27-2024 Viral infection (8 sources)Disease caused by 2019-nCoV; Translations: [COVID-19]Onset: 16-75-7586Qrzijyry Results Test NameValueInterpretationReference RangeFacilityPerimetry studyon 09-27-2024 [facility] HealthcareRadiology Study observation (narrative)[facility] HealthcareAerobic cultureon 22-90-3405Coxwhpjtgphtk or agent identified Nom (Unsp spec)Final reportAbNovant Health, Encompass HealthNo Panel Informationon 09-06-2024 Interpretation and review of laboratory resultsAbOSF HealthCare St. Francis HospitalPerformed at: [address] [place] [id number] Floor Covering Contractor: Angel Jacobs PhD, Phone: [phone] 09-06-2024 Bacteria identified Cx Nom (Unsp spec)CommentAbSharon Hospital HealthcareComment on above:Enterobacter cloacae complex Some Enterobacterales may develop resistance during therapy with third-generation cephalosporins. This resistance is most commonly seen with Citrobacter freundii complex, Enterobacter cloacae complex, and Klebsiella aerogenes. Isolates that initially test susceptible may become resistant within a few days after initiation of therapy. Testing subsequent isolates may be warranted if clinically indicated. (CLSI L583-Hw91) Light growth Bacteria identified Cx Nom (Unsp spec)Staphylococcus aureusAbOSF HealthCare St. Francis HospitalComment on above:Based on susceptibility to oxacillin [...] S Trimethoprim/Sulfa S S Vancomycin S 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 Interpretive Statements [...] EDT by FELIPA ALANIS M.D. Dictated By: FELPIA ALANIS Signed By: 08/10/24220608/10/242206 DD/ 154 TD/TT: Clinical Services Professional:TBHRadiology, Radiologist, - 08/10/2024 [place] [address] Cardiology Report Signed Patient: MEG GEORGES MR#: [id number] : 1965 Acct:[id number] Age/Sex: 59 / F ADM Date: 08/10/24 Loc: CARD Attending Dr: Kailee CESPEDES Ordering Physician: Kailee Lopez Date of Service: 08/10/24 Procedure(s): CA segmental UE or LE SAMANTHA Accession Number(s): [id number] cc: MAHIN BERNAL [facility] Test Date: 2024-08-10 Pat Name: MEG GEORGES Department: Room: - Gender: Female 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 Interpretive Statements [...] ALANIS Signed By: 08/10/24220608/10/242206 DD/ 1548 TD/TT: Clinical Services Professional: [facility] HealthcareRadiology Study observation (narrative)[facility] HealthcareSEENTAL BLOOD PRESSUREOrdered By: Radiologist Radiology on 47-00-6004DGDP Healthcare Work Phone: XR FOOT SAMANTHA MIN 3 VIEWSon 79-47-3601QrcJennifer [place] [id number] XRay Report Signed Patient: MEG GEORGES MR#: [id number] : 1965 Acct:[id number] Age/Sex: 59 / F ADM Date: 08/10/24 Loc: CARD Attending Dr: Kailee CESPEDES Ordering Physician: Kailee Lopez Date of Service: 08/10/24 Procedure(s): XR foot SAMANTHA min 3V Accession Number(s): [id number] cc: MAHIN BERNAL ; Kailee Lopez [place] [id number] Patient Name: MEG GEORGES MRN: [id number] date: 1965 Sex: F Assigned Patient Location: CARD Current Patient Location: CARD Accession/Order Number: [id number] Exam Date: 08/10/2024 11:59 Report Date: 08/10/2024 [...] Crews M.D. 08/10/2024 12:04 PM Dictation Location: [place] [address] Electronically authenticated by: [id number] Y Date: 08/10/2024 12:04 Dictated By: Misa Crews M.D. Signed By: 08/10/24 1207 DD/ 1204 TD/TT: Clinical Services Professional:TBHRadiology, Radiologist, - 08/10/[address] [address] XRay Report Signed Patient: MEG GEORGES MR#: [id number] : 1965 Acct:[id number] Age/Sex: 59 / F ADM Date: 08/10/24 Loc: CARD Attending Dr: Kailee CESPEDES Ordering Physician: Kailee Lopez Date of Service: 08/10/24 Procedure(s): XR foot SAMANTHA min 3V Accession Number(s): [id number] cc: MAHIN BERNAL ; Kailee Lopez The [address] [address] Patient Name: MEG GEORGES MRN: [id number] date: 1965 Sex: F Assigned Patient Location: CARD Current Patient Location: CARD Accession/Order Number: [id number] Exam Date: 08/10/2024 11:59 Report Date: 08/10/2024 [...] Crews M.D. 08/10/2024 12:04 PM Dictation Location: [place] [address] Electronically authenticated by: [id number] Y Date: 08/10/2024 12:04 Dictated By: Misa Crews M.D. Signed By: 08/10/24 1207 DD/ 1204 TD/TT: Clinical Services Professional: PEDRO HealthcareRadiology Study observation (narrative)[facility] HealthcareXR FOOT SAMANTHA MIN 3 VIEWSOrdered By: Radiologist Radiology on 22-23-4818NKZU [employer] Work Phone: Ophthalmic OCT panelon 58-22-0340XHEHMosaic Life Care at St. Josephht Eye Images reviewed and comparison made to baseline, Images reviewed. To assess optic nerve function and for use in future follow-up. Reliability: good and adequate. Left Eye Images reviewed and comparison made to baseline, Images reviewed. To assess optic nerve function and for use in future follow-up. Reliability: good and adequate. 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 Appropriate healthcare PPE [...] failure Depression Depression Encepha (more content not included)...[facility] MD, Cancer CenterComment on above:Result Comment: Electronically Signed By: Jeff Clancy PA-C\.br\Date and Time Signed: 04/16/2512:24 EST\.br\Electronically Co-Signed By: Garfield Rodriguez DO\.br\Date and Time Co-Signed: 04/17/24 07:01 ESTCT Spine Lumbar w/o Contraston 48-46-2786QQ Spine Lumbar w/o ContrastExam Date/Time: 04/16/2024 11:38 [...] MD Transcribed by: SINDY Technologist: Jose [facility] Clinical Summaryon 01-92-6533GR Clinical SummaryED Clinical Summary [place] [address] ED Clinical Summary Person Information Name: MEG GEORGES Jesusita/[facility] Age: 59 Years : 1965 Sex: Female Language: Nigerian PCP: Jami Payne Marital Status: Visit Id: [...] 04/16/2024 14:34:45 04/16/2024 14:34:45 04/16/2024 14:34:45 ADDRESS: [address] [place] [address] [place] [id number] PHYS DOC NOTES: MEDICAL INFORMATION: Prescriptions Given: New Medications [id number], [address], [place] [id number], [phone] acetaminophen-oxycodone (Percocet 5 mg-325 mg oral tablet) [...] In 3 days 04/19/2024 DIAGNOSIS: Back pain; FallNormalTrinity Health System CenterED Patient Summaryon 04-16-2024 ED Patient SummaryED Patient Summary [place] [id number] Patient Discharge Instructions Person Information Name: MEG GEORGES Age: 59 Years Arrival Date: 04/16/2024 10:20:31 Discharge Diagnosis: Back pain; Fall Primary Care Physician: Jami Payne Provider Information Primary Provider: Garfield Rodriguez DO Advanced Animal Shelter Clerk:Jeff Clancy PA-C The exam and treatment you received in the Emergency Department were for an urgent problem and are not intended as complete care. It is important that you follow up with a doctor, nurse practitioner,or physician???s assistant quality manager for ongoing care. If your symptoms become [...] opioids can be used to help relieve okepejzq-bm-geghda pain and are often prescribed following a [...] be struggling with addiction, tell your health child care center assistant director and askfor guidance or call [facility]???S National Helpline at 9-268-494-IBAF. v S (more content not included)...[facility], Cancer CenterPre-Arrival Noteon 43-08-5995Fnz-Arrival NotePre-Arrival Note Pre-Arrival Summary Name: , wilfred Current Date: 04/16/2024 10:22:29 EST Gender: Female Date of : Age: 60 Pre-Arrival Type: EMS ETA: 04/16/2024 10:38:00 EST Primary Care Physician: Presenting Problem: fall Pre-Arrival User: Shirin Miller RN Referring Source: Location: [place] Completion Date/Time: 04/16/2024 10:09:00 [facility] Emergency Department Pre-Hospital Report Form Vital Signs: Pre-Hospital Report: Treatment in Route: Response to Treatment: Misc. Issues:[facility] CenterF[facility] Medicine Office/Clinic Note on 15-78-7927Spxlzy Medicine Office/Clinic NoteFawestern [facility] Medicine Office/Clinic Note Chief Complaint 1m f/u HPI Staff 1m follow up Patient is here for follow up on hyperlipidemia: Do you have side effects from the medication? no Refill needed?: _ Yearly Lipid labs: 11/19/23 Patient is here for follow up on Diabetes. How often are you checking your blood sugars? _? resides [facility] Do you have any of the following symptoms? Vision problems? no? Lightheadedness? no? Paresthesias, Ulcerations or sores? no? Patient is here for follow up on Thyroid Disease. Do you have any of the following symptoms? Change in energy level? no Weight change? no Heat/cold intolerance? no Hair/skin/nail changes? no Change in bowels? no Last TSH: [facility] to have labs completed prior to [...] Tab, 100 mcg (more content not included)...Normal [facility] HospitalComment on above:Result Comment: Electronically Signed By: Jami Payne\.br\Date and Time Signed: 11/25/23 12:17 EDTPre- Visit Planningon 81-06-8226Mqi-Visit PlanningPre-Visit Planning From: Mai Wilkins To: Jami [...] feel free to contact me at extension [phone]. Thank you! Mai Wilkins LPN Clinical Jinriksha Driver [place] [address] Extension: [phone] [email or web address] From: Jami Payne To: Mai Wilkins; Sent: 11/21/2023 08:41:15 EDT Subject: RE: Pre-Visit Planning Caller Name: REBECCA MEG Jemal; Caller Number: , Sallie major depressive disorder, recurrent moderateNormalFisher [facility] Family Medicine Office/Clinic Noteon 10-17-9986Pvwtsd Medicine Office/Clinic NoteFawestern mass[facility] hospital Medicine Office/Clinic Note HPI Staff Meg is a 58 year old female presenting with D/C'd from [facility] on 10/21/23 Is currently at [facility] Establish Care: History: Any previous diagnosis: Diabetes, [...] to establish care. recently moved to [facility] from [facility] Review of Systems PHQ Score Initial Depression [...] panel ordered 2. Long-term insulin use (Z79.4: FPC (current) use of insulin) HGBA1C ordered 3. [...] being treated for this with infusions in [place]. she was warned about the risks of [...] pain, # 30 tab(s), Refills(s) 0, Pharmacy: [facility], 165, cm, 10/24/23 13:15:00 EDT, Height/Length Dosing, [...] glargine, 15 unit(s), SubCu (more content not included)...[facility] Bing, MD, Cancer CenterComment on above:Result Comment: Electronically Signed By: Jami Payne\.br\Date and Time Signed: 10/24/23 14:29 EDTPre-Visit Planningon [id number]-Visit PlanningPre-Visit Planning From: Mai Wilkins To: Jami [...] feel free to contact me at extension [phone]. Thank you! Mai Wilkins LPN Clinical Jinriksha Driver [place] [address] Extension: [phone] [email or web address] From: Jami Payne To: Mai Wilkins; Sent: 10/24/2023 14:29:06 EDT Subject: RE: Pre-Visit Planning Caller Name: MEG GEORGES; Caller Number: Sallie Pretty sure I addressed all of her diagnosis you had questions on. Thank you [facility], Cancer CenterPre-Visit Planningon 22-06-0201Cma-Visit PlanningPre-Visit Planning From: Mai Wilkins To: Jami [...] feel free to contact me at extension [phone]. Thank you! Mai Wilkins LPN Clinical Jinriksha Driver [place] [address] Extension: [phone] [email or web address] From: Jami Payne To: Mai Wilkins; Sent: 10/23/2023 12:43:08 EDT Subject: RE: Pre-Visit Planning Caller Name: MEG GEORGES; Caller Number: Sallie chronic kidney disease stage 3aNoGalion Community HospitalPre-Visit PlanningPre-Visit Planning From: Mai Wilkins [...] feel free to contact me at extension [phone]. Thank you! Mai Wilkins LPN Clinical Jinriksha Driver [place] [address] Extension: [phone] [email or web address] From: Jami Payne To: Mai Wilkins; Sent: 10/23/2023 10:45:18 EDT Subject: RE: Pre-Visit Planning Caller Name: MEG GEORGES; Caller Number: Sallie will determine during visit. thank [facility] HospitalPre-Visit PlanningPre-Visit Planning From: Mai Wilkins To: [...] feel free to contact me at extension [phone]. Thank you! Mai Wilkins LPN Clinical Jinriksha Driver [address] [address] Extension: [phone] [email or web address] Physician Orderon [id number] Order [id number]#1.00TIFFOhioHealth Arthur G.H. Bing, MD, Cancer CenterRespiratory Panel by PCRon 70-81-8627Sjqgbbkpto DNA CAL+non-probe Ql (Nph) Not detectedOhioHealth Arthur G.H. Bing, MD, Cancer CenterComment on above:Order Comment: per charanjit Sanches had talked to [place] earlier in the day and they want the swab placed into the media to run the specimen [id number] 05/27/2023 17:26:25 EDT Result Comment: Testing was performed using nucleic acid amplification including Influenza A, Influenza A H1, Influenza A H3, Influenza B, RSV A, RSV B, Adenovirus, Human Metapneumovirus, Parainfluenza 1,2,3, and 4, Rhinovirus, Bordetella parapertussis/bronchiseptica, Bordetella holmesii, and Bordetella pertussis.Performed By: #### [id number] ####[facility] Sgiqjxjsbu[address] [facility] [id number]. parapertussis DNA CAL+probe Ql (Upper resp)Not detectedNormalNot The Jewish HospitalComment on above:Order Comment: per charanjit Sanches had talked to [place] earlier in the day and they want the swab placed into the media to run the specimen [id number] 05/27/2023 17:26:25 EDTPerformed By: #### [id number] ####[facility] Oplyzobfdu[address] [facility], [id number]. pertussis DNA CAL+probe Ql (Upper resp)Not detectedNormalNot The Jewish HospitalComment on above:Order Comment: charanjit Briggs had talked to [place] earlier in the day and they want the swab placed into the media to run the specimen [id number] 05/27/2023 17:26:25 EDTPerformed By: #### [id number] ####[place] [address] [place] [facility], [id number] H1 RNA CAL+non-probe Ql (Nph)Not detectedNormFairfield Medical Center Comment on above:Order Comment: charanjit Briggs had talked to [place] earlier in the day and they want the swab placed into the media to run the specimen [id number] 05/27/2023 17:26:25 EDTPerformed By: #### [id number] ####Reece [address], [place]PCZVV H3 RNA CAL+non-probe Ql (Nph)Not detectedNormFairfield Medical Center Comment on above:Order Comment: per charanjit Sanches had talked to [place] earlier in the day and they want the swab placed into the media to run the specimen [id number] 05/27/2023 17:26:25 EDTPerformed By: #### [id number] ####[place] [address] [place] [facility], [place]ULEAF RNA CAL+non-probe Ql (Nph)Not detectedNormFairfield Medical CenterComment on above:Order Comment: per charanjit Sanches had talked to [place] earlier in the day and they want the swab placed into the media to run the specimen [id number] 05/27/2023 17:26:25 EDTPerformed By: #### [id number] ####Reece [facility] Rumayvzcjr[address] [place] AveNorbeth david hospitalk, [id number] RNA CAL+non-probe Ql (Nph)Not detectedNormalTrihealth Bethesda North HospitalComment on above:Order Comment: per charanjit Sanches had talked to [place] earlier in the day and they want the swab placed into the media to run the specimen [id number] 05/27/2023 17:26:25 EDTPerformed By: #### [id number] ####Reece [facility] [address] [place], [place]Otcml Metapneumovirus Not detectedNormFairfield Medical CenterComment on above:Order Comment: per charanjit Sanches had talked to [place] earlier in the day and they want the swab placed into the media to run the specimen [id number] 05/27/2023 17:26:25 EDT Result Comment: This test result should be correlated with clinical presentations and medical history by a healthcare provider to determine its clinical significance.Performed By: #### [id number] ####Reece [facility] Smicqsplps[address] [place] AveNmaranda, [id number] virus 1 RNA CAL+non-probe Ql (Nph)Not detectedNoGalion Community HospitalComment on above:Order Comment: per charanjit Sanches had talked to [place] earlier in the day and they want the swab placed into the media to run the specimen [id number] 05/27/2023 17:26:25 EDTPerformed By: #### [id number] ####Reece [facility] Iytjscvfml025 [place] AveNornicolek, [place]Olaykzpswnsul virus 2 RNA CAL+non-probe Ql (Nph)Not detectedNormFairfield Medical CenterComment on above:Order Comment: per charanjit Sanches had talked to [place] earlier in the day and they want the swab placed into the media to run the specimen [id number] 05/27/2023 17:26:25 EDTPerformed By: #### [id number] ####Reece [facility] Ndalxvncan[address] [place] AveNorwalk, [place]Bfdlfkccnnyeu virus 3 RNA CAL+non-probe Ql (Nph)Not detectedNormFairfield Medical Center Comment on above:Order Comment: per charanjit Sanches had talked to [place] earlier in the day and they want the swab placed into the media to run the specimen [id number] 05/27/2023 17:26:25 EDTPerformed By: #### [id number] ####Reece [facility] Qdromewwvu[address] [facility], [place] Parainfluenza virus 4 RNA CAL+non-probe Ql (Nph)Not detectedOhioHealth Arthur G.H. Bing, MD, Cancer CenterComment on above:Order Comment: per charanjit Sanches had talked to [place] earlier in the day and they want the swab placed into the media to run the specimen [id number] 05/27/2023 17:26:25 EDTPerformed By: #### [id number] ####Reece [facility] [address] [place], [place] [address]Lmro Panel Intrl QCPassOhioHealth Arthur G.H. Bing, MD, Cancer CenterComment on above: Order Comment: per charanjit Sanches had talked to [place] earlier in the day and they want the swab placed into the media to run the specimen [id number] 05/27/2023 17:26:25 EDTPerformed By: #### [id number] ####Reece [facility] [address] [place] Angelitadanbury hospitalcedrick, [place]Jokejjilbh+Enterovirus RNA CAL+non-probe Ql (Nph)Not detectedOhioHealth Arthur G.H. Bing, MD, Cancer CenterComment on above:Order Comment: per charanjit Sanches had talked to [place] earlier in the day and they want the swab placed into the media to run the specimen [id number] 05/27/2023 17:26:25 EDTPerformed By: #### [id number] ####Reece [facility] [address]rs[address] [place] Maicolbeth david hospitalcedrick, R[place]UQR RNA CAL+non-probe Ql (Nph)DetectedAbCleveland ClinicComment on above:Order Comment: per charanjit Sanches had talked to [place] earlier in the day and they want the swab placed into the media to run the specimen [id number] 05/27/2023 17:26:25 EDTPerformed By: #### [id number] ####Reece [facility] [address] [place] [id number] CBC W/ AUTO DIFFon 03-29-2023 Basophils (Bld) [#/Vol]0.0 10*3/uLNOMS HealthcareBasophils/100 WBC (Bld)0.2 %0.0 - 2.0 %NOMS HealthcareEOS ABSOLUTE0.9HighNOMS HealthcareEosinophils/100 WBC (Bld)7.7 %0.0 - 8.0 %NOMS HealthcareErythrocyte distribution width (RBC) [Ratio] 14.1 %10.9 - 14.2 %NOMS HealthcareHematocrit (Bld) [Volume fraction]32.0 %Low 34.0 - 46.0 %NOMS HealthcareHemoglobin (Bld) [Mass/Vol]10.3 g/dLLouis Stokes Cleveland [facility] Center HealthcareInterpretation and review of laboratory resultsAbnormalNOMS Healthcare LYMPH ABSOLUTE2.5NOMS HealthcareLymphocytes/100 WBC (Bld)22.1 %14.0 - 50.0 %[facility] HealthcareMCH (RBC) [Entitic mass]30.0 pg27.0 - 34.0 pgNODoctors Hospital of SpringfieldMCHC (RBC) [Mass/Vol]31.9 g/dLCitizens Memorial HealthcareMCV (RBC) [Entitic vol]94.1 fL80.0 - 100.0 fLNOMT HealthcareMONO ABSOLUTE1.0NOMS HealthcareMonocytes/100 WBC (Bld)9.2 %4.0 - 14.0 %NOMS HealthcareNEUTRO ABSOLUTE6.8NOMT HealthcareNEUTRO AUTO60.8 % 36.0 - 75.0 %NOMS HealthcarePlatelet mean volume (Bld) [Entitic vol]7.5 fL6.4 - 10.8 fLNOMT HealthcarePlatelets (Bld) [#/Vol]270.0 10*3/uLNOMS HealthcareRBC (Bld) [#/Vol]3.4 10*6/uLLowNOMS HealthcareWBC (Bld) [#/Vol]11.3 10*3/uLHighNOMS HealthcareOriginal Ordering Provider: MD RUFUS Sanchez [facility] CT CERVICAL SPINE WO CONTRASTon [id number] CERVICAL SPINE WO CONTRAST EXAMINATION: CT CERVICAL [...] to 8 to 9 mm compatible with klbt-bk-hmvmnemz central stenosis. No neural foraminal stenosis. C3-C4: [...] Signed by: Chance Hugo DO 11/23/22 Final resultNoMercy Health Springfield Regional Medical CenterXR CERVICAL SPINE (4-5 VIEWS)on [id number] CERVICAL SPINE (4-5 VIEWS)EXAMINATION: 4 XRAY VIEWS [...] Signed by: Clark Veliz MD 04/03/22 Final resultNoGreen Cross HospitalPrior dens fracture with posterior fixation at C1-2 without complication. Multilevel degenerative facet hypertrophy. [facility] RIS CONSOLIDATEDEXAMINATION: 4 XRAY VIEWS OF [...] The lung apices are without acute process. [facility] Clark Horvath MD - 04/03/2022 EXAMINATION: [...] C1-2 without complication. Multilevel degenerative facet hypertrophy. [facility] Phone: XR CERVICAL SPINE (4-5 VIEWS)Ordered By: Clark Veliz on 25-73-3917[facility] Phone: XR CERVICAL SPINE (4-5 VIEWS)on 34-56-6074Dobfmzlxl Study observation (narrative)[facility] Phone: XR CERVICAL SPINE FLEXION AND EXTENSIONon 12-06-2021 Similar angulated pathologic dens fracture with posterior fixation C1-C2. [facility] CONSOLIDATEDEXAMINATION: 2 XRAY VIEWS OF THE CERVICAL SPINE 12/04/2021 10:31 am COMPARISON: 09/23/2021, 09/25/2021 HISTORY: ORDERING SYSTEM PROVIDED HISTORY: Atlantoaxial instability TECHNOLOGIST PROVIDED HISTORY: post-op FINDINGS: Similar appearance of fixation hardware posteriorly at C1-C2. Pathologic dens fracture with similar angulation in comparison to prior exams. Somewhat limited motion without definite dynamic instability on flexion/extension views. There is a tracheostomy tube in place. Similar ejej-rs-hqumohgt degenerative changes lower cervical spine. No localized prevertebral soft tissue swelling. [facility] Jose Briceno MD - 12/06/2021 EXAMINATION: 2 [...] is a tracheostomy tube in place. Similar spup-bp-wutctbpr degenerative changes lower cervical spine. No localized prevertebral soft tissue swelling. IMPRESSION: Similar angulated pathologic dens fracture with posterior fixation C1-C2. [facility] Phone: XR CERVICAL SPINE FLEXION AND EXTENSIONOrdered By: Jose Chan on 86-21-7996[facility] [place] Phone: XR CERVICAL SPINE FLEXION AND EXTENSIONon 12-04-2021 Radiology Study observation (narrative)[facility] Phone: basic Metabolic Panelon 45-80-8917Bnuvh gap [Moles/Vol]15.1 mmol/LHigh6.0-15.0St. Anthony'S HospitalComment on above:Performed By: #### CBC, BMP #### [facility] [address] [place] [address] USACalcium [Mass/Vol]9.6 mg/dLNormal8.2-10.2FPeoples HospitalComment on above:Result Comment: PERFORMED BY: [place] [address] PATHOLOGIST FIRE LOSS PREVENTION ENGINEER ALEYDA GUERRIER M.D.Performed By: #### CBC, BMP #### [facility] [address] [place] [address] USAChloride [Moles/Vol]97 mmol/OCqphtn37-653EomdcnpzzSt. Anthony'S HospitalComment on above:Performed By: #### CBC, BMP #### [facility] [address] [place] [address] USACO2 [Moles/Vol]25.4 mmol/GXpplbn23.0-30.0St. [facility]'S HospitalComment on above:Performed By: #### CBC, BMP #### [facility] [address] [place] [address] USACreatinine [Mass/Vol]0.82 mg/dLNormal0.44-1.03St. Anthony'S HospitalComment on above:Performed By: #### CBC, BMP #### [facility] [address] [place] [address] USAEstimated GFR ( Jesusita> 60NormWooster Community HospitalComment on above:Result Comment: GFR estimated reference range: According to KDOQI guidelines, <60 ml/min/1.73m2 is sufficient to diagnose a patient with chronic kidney disease.Performed By: #### CBC, BMP #### [facility] [address] [place] [id number] USAEstimated GFR (Non- Am> 60NormWooster Community HospitalComment on above:Performed By: #### CBC, BMP #### [facility] [address] [place] [address] USAGlucose [Mass/Vol]105 mg/dJTslz14-736WnbowwxurSt. Anthony'S HospitalComment on above:Result Comment: Random Glucose Reference Range is dependent on time and content of last meal. Glucose of more than 200 mg/dL in a nonstressed, ambulatory subject supports the diagnosis of Diabetes Mellitus. ADA recommended reference rangePerformed By: #### CBC, BMP #### [facility] [address] [place] [address] USAPotassium [Moles/Vol]4.5 mmol/LNormal3.5-5.1FPeoples HospitalComment on above:Performed By: #### CBC, BMP #### [facility] [address] [place] [id number] USASodium [Moles/Vol]133 mmol/ETbr954-909NgglnjnvbSt. Anthony'S HospitalComment on above:Performed By: #### CBC, BMP #### [facility] [address] [place] [address] USAUrea nitrogen [Mass/Vol]31 mg/dLHigh9-23Firelands Regional Medical CenterComment on above:Performed By: #### CBC, BMP #### [facility] [address] [place] [id number] USABasophils Auto (Bld) [#/Vol]Ordered By: Rufus Perez on 06-92-5956Ujxzpduxu (Bld) [#/Vol]0.0 10*3/uL0.0-0.2FPeoples HospitalBasophils/100 WBC Auto (Bld)Ordered By: Rufus Perez on 11-22-2021 Basophils/100 WBC (Bld)0.3 %.St. [facility]'S HospitalBlood hemoglobin measurement (mass/volume)Ordered By: Rufus Perez on 32-58-4745Fxubsjlasv (Bld) [Mass/Vol]10.1 g/dL11.8-15.4FPeoples HospitalBlwaseca hospital and clinic leukocytes automated count (number/volume)Ordered By: Rufus Perez on 23-30-5259OXR (Bld) [#/Vol]12.2 10*3/uL4.5-11.0St. [facility]'S HospitalComplete Blood Count Auto Diffon 40-83-4258Xdstdpkhs (Bld) [#/Vol]0.0 10*3/uLNormal0.0-0.2FPeoples HospitalComment on above:Result Comment: PERFORMED BY: [place] [address] PATHOLOGIST FIRE LOSS PREVENTION ENGINEER ALEYDA GUERRIER M.D.Performed By: #### CBC, BMP #### [facility] [address] [place] [id number] USABasophils/100 WBC (Bld)0.3 %Normal.St. Anthony'S HospitalComment on above:Performed By: #### CBC, BMP #### [facility] [address] [place] [address] USAEosinophils (Bld) [#/Vol]0.2 10*3/uLNormal0.0-0.45 [facility]'S HospitalComment on above:Performed By: #### CBC, BMP #### [place] [address] USAEosinophils/100 WBC (Bld)2.0 %Normal.St. Anthony'S HospitalComment on above:Performed By: #### CBC, BMP #### [place] [address] USAErythrocyte distribution width (RBC) [Ratio]19.2 %High 11.9-15.3FPeoples HospitalComment on above:Performed By: #### CBC, BMP #### [place] [address] USAHematocrit (Bld) [Volume fraction]32.0 %Low34.0-46.4 [facility]'S HospitalComment on above:Performed By: #### CBC, BMP #### [place] [address] USAHemoglobin (Bld) [Mass/Vol]10.1 g/dLLow11.8-15.4FPeoples HospitalComment on above:Performed By: #### CBC, BMP #### [place] [address] USALymphocytes (Bld) [#/Vol]2.2 10*3/uLNormal1.00-4.8 [facility]'S HospitalComment on above:Performed By: #### CBC, BMP #### [place] [address] USALymphocytes/100 WBC (Bld)18.2 %Normal.St. Anthony'S HospitalComment on above:Performed By: #### CBC, BMP #### [place] [address] USAMCH (RBC) [Entitic mass]27.0 fsIibxxw90.7-34.3FPeoples HospitalComment on above:Performed By: #### CBC, BMP #### [place] [address] USAMCV (RBC) [Entitic vol]85.7 aVWdnake85-870GtcsmvcguSt. Anthony'S HospitalComment on above:Performed By: #### CBC, BMP #### [place] [id number] USAMean Corpuscular HGB Conc31.5 g/dLLow32.0-35.0St. Anthony'S HospitalComment on above:Performed By: #### CBC, BMP #### [facility] [address] [place] [address] USAMonocytes (Bld) [#/Vol]0.6 10*3/uLNormal0.0-0.8St. Anthony'S HospitalComment on above:Performed By: #### CBC, BMP #### [facility] [address] [place] [address] USAMonocytes/100 WBC (Bld)5.3 %Normal.St. Anthony'S HospitalComment on above:Performed By: #### CBC, BMP #### [facility] [address] [place] [address] USANeutrophils (Bld) [#/Vol]9.0 10*3/uLHigh1.8-7.7FPeoples HospitalComment on above:Performed By: #### CBC, BMP #### [place] [address] USANeutrophils/100 WBC (Bld)74.2 %Normal.St. Anthony'S HospitalComment on above:Performed By: #### CBC, BMP #### [facility] [address] [place] [address] USANucleated RBC/100 WBC (Bld) [Ratio]0.0 %Normal0-0.5 [facility]'S HospitalComhelen devos children's hospital on above:Performed By: #### CBC, BMP #### [facility] [address] [place] [address] USAPlatelet mean volume (Bld) [Entitic vol]7.4 fLNormal 6.3-10.7FPeoples HospitalComment on above:Performed By: #### CBC, BMP #### [facility] [address] [place] [address] USAPlatelets (Bld) [#/Vol]543 10*3/gPRtps561-998LsvbsxzjzSt. Anthony'S HospitalComment on above:Performed By: #### CBC, BMP #### [facility] [address] [place] [address] USARBC (Bld) [#/Vol]3.74 10*6/uLNormal3.60-5.00St. Anthony'S HospitalComment on above:Performed By: #### CBC, BMP #### [facility] [address] [place] [address] USAWBC (Bld) [#/Vol]12.2 10*3/uLHigh4.5-11.0St. Anthony'S HospitalComment on above:Performed By: #### CBC, BMP #### [facility] [address] [place] [address] USACreatinine and Glomerular filtration rate.predicted panel (S/P/Bld)Ordered By: Rufus Perez on 15-68-1454Pahwgzylkw [Mass/Vol]0.82 mg/dL 0.44-1.03St. Anthony'S HospitalEosinophils Auto (Bld) [#/Vol]Ordered By: Rufus Perez on 37-02-6361Dkjeueqbgcq (Bld) [#/Vol]0.2 10*3/uL0.0-0.45 [facility]S HospitalEosinophils/100 WBC Auto (Bld)Ordered By: Rufus Perez on 87-33-3305Vvthzveymmk/100 WBC (Bld)2.0 %.St. Anthony'S HospitalErythrocyte distribution width Auto (RBC) [Ratio]Ordered By: Rufus Perez on 61-87-0003Owzsdqgqcdo distribution width (RBC) [Ratio]19.2 % 11.9-15.3FPeoples HospitalEstimated glomerular filtration rate (GFR) non- AmericanOrdered By: Rufus Perez on 68-32-4097NBY/1.73 sq M.predicted among non-blacks MDRD (S/P/Bld) [Vol rate/Area]> 60 mL/MinSt. Anthony'S HospitalHematocrit Auto (Bld) [Volume fraction]Ordered By: Rufus Perez on 11-68-3414Xqmbrqkefz (Bld) [Volume fraction]32.0 %34.0-46.4Firelands Regional Medical CenterLaboratory - Hematology and Cell countsOrdered By: Rufus Perez on 47-05-4007Fjjsildqu RBC/100 WBC (Bld) [Ratio]0.0 %0-0.5FPeoples HospitalLymphocytes Auto (Bld) [#/Vol]Ordered By: Rufus Perez on 09-20-0831Owkbjoohqbm (Bld) [#/Vol]2.2 10*3/uL1.00-4.8St. Anthony'S HospitalLymphocytes/100 WBC Auto (Bld)Ordered By: Rufus Perez on 73-34-6157Snmfmemfkki/100 WBC (Bld)18.2 %.[facility] Auto (RBC) [Entitic mass]Ordered By: Rufus Perez on 53-76-7882HWL (RBC) [Entitic mass]27.0 pg24.7-34.3FCoshocton Regional Medical CenterHC Auto (RBC) [Mass/Vol]Ordered By: Rufus Perez on 72-99-5628PXAJ (RBC) [Mass/Vol]31.5 g/dL 32.0-35.0St. Anthony'S HospitalMCV Auto (RBC) [Entitic vol]Ordered By: Rufus Perez on 97-26-6654JMJ (RBC) [Entitic vol]85.7 wW89-197MaafxzaclSt. Anthony'S HospitalMonocytes Auto (Bld) [#/Vol]Ordered By: Rufus Perez on 92-61-6840Ydmyaynqj (Bld) [#/Vol]0.6 10*3/uL0.0-0.8St. Anthony'S HospitalMonocytes/100 WBC Auto (Bld)Ordered By: Rufus Perez on 11-22-2021 Monocytes/100 WBC (Bld)5.3 %.St. Anthony'S HospitalNeutrophils Auto (Bld) [#/Vol]Ordered By: Rufus Perez on 07-16-8970Mjttlctqzzd (Bld) [#/Vol]9.0 10*3/uL1.8-7.7FPeoples HospitalNeutrophils/100 WBC Auto (Bld) Ordered By: Rufus Perez on 05-22-1745Alhkihhdriv/100 WBC (Bld)74.2 %.[facility]'S HospitalNo Panel InformationOrdered By: Rufus Perez on 98-06-3176Hydcyoewx GFR ()> 60 mL/MinSt. Anthony'S HospitalComment on above:GFR estimated reference range: According to KDOQI guidelines, <60 ml/min/1.73m2 is sufficient todiagnose a patient with chronic kidney disease.Pharmacy Creatinine Clearance (ChemN/[facility] HospitalPlatelet mean volume Auto (Bld) [Entitic vol]Ordered By: Rufus Perez on 35-27-2623Hhxdvlrq mean volume (Bld) [Entitic vol]7.4 fL6.3-10.7FPeoples HospitalPlatelets Auto (Bld) [#/Vol]Ordered By: Rufus Perez on 16-15-5502Uzefzvkxi (Bld) [#/Vol]543 10*3/oH738-103NvugonqvmSt. Anthony'S HospitalRBC Auto (Bld) [#/Vol]Ordered By: Rufus Perez on 49-50-0754XUJ (Bld) [#/Vol]3.74 10*6/uL3.60-5.00[facility] Cincinnatierum or plasma anion gap determinationOrdered By: Rufus Perez on 92-24-6548Pwpzs gap [Moles/Vol]15.1 mmol/L6.0-15.0[facility] Cincinnatierum or plasma calcium measurement (mass/volume)Ordered By: Rufus Perez on 16-61-3885Lltpszw [Mass/Vol]9.6 mg/dL8.2-10.2FOhio Valley Surgical Hospitalerum or plasma chloride measurement (moles/volume)Ordered By: Rufus Perez on 11-22-2021 Chloride [Moles/Vol]97 mmol/O56-510RtleqijwuSelect Medical Specialty Hospital - Cincinnatierum or plasma glucose measurement (mass/volume)Ordered By: Rufus Perez on 11-22-2021 Glucose [Mass/Vol]105 mg/dU59-212WjftjrcahSt. Anthony'S HospitalComment on above:ADA recommended reference rangeRandom Glucose Reference Range is dependent on time and content of last meal. Glucose of more than 200 mg/dL in a nonstressed, ambulatory subject supports the diagnosisof Diabetes Mellitus.Serum or plasma potassium measurement (moles/volume)Ordered By: Rufus Perez on 29-17-5288Zolcdkxju [Moles/Vol]4.5 mmol/L3.5-5.1FOhio Valley Surgical Hospitalerum or plasma sodium measurement (moles/volume)Ordered By: Rufus Perez on 00-98-7129Jogpcg [Moles/Vol]133 mmol/U952-226UfpwpmadiSelect Medical Specialty Hospital - Cincinnatierum or plasma total carbon dioxide measurement (moles/volume)Ordered By: Rufus Perez on 04-66-9688SH6 [Moles/Vol]25.4 mmol/L22.0-30.0Select [facility] - Cincinnatierum or plasma urea nitrogen measurement (mass/volume)Ordered By: Rufus Perez on 49-46-9174Znxq nitrogen [Mass/Vol]31 mg/dL9-23St. Anthony'S HospitalBASIC METABOLIC PANELon 51-64-9689Zqiww gap [Moles/Vol]10 mmol/LNormal<=30UnKettering Health PrebleComment on above:Performed By: #### [id number] #### [facility] ([facility]) [address] [place], [place] [address]Hpldcrc [Mass/Vol]9.6 mg/dLNormal8.6-10.3UnKettering Health PrebleComment on above:Performed By: #### [id number] #### [facility] ([facility]) [address] [place], [place] [address]Kospxjgi [Moles/Vol]101 mmol/PFglzan53-166CwdazgxppnKettering Health PrebleComment on above:Performed By: #### [id number] #### [facility] ([facility]) [address] [place], [place] [address]VH2 [Moles/Vol]28 mmol/OPmqhom16-59BbdxxuwaoeKettering Health PrebleComment on above:Performed By: #### [id number] #### [facility] ([facility]) [address] [place], [place] [address]Hwwwxwznzi [Mass/Vol]0.71 mg/dLNormal0.60-1.20UnKettering Health PrebleComment on above:Performed By: #### [id number] #### [facility] ([facility]) [address] [place] [address]FJTLGVHSJK FILTRATION RATE ML/MIN/1.73 SQ M.DRAJXVROZ22.2 mL/min/1.73m*2Normal>60.0UnKettering Health PrebleComment on above: Result Comment: [facility]???s estimated glomerular filtration rate (eGFR) will [...] group of individuals.Performed By: #### LAB15 #### [facility] ([facility]) [address] [place] [address]Bgmazuo [Mass/Vol]74 mg/kHPmvjfs87-455BkaqqfjmtnKettering Health PrebleComment on above:Performed By: #### [id number] #### [facility] ([facility]) [address] [place] [address]Aehcghmdn [Moles/Vol]4.3 mmol/LNormal3.5-5.1UnKettering Health PrebleComment on above:Performed By: #### [id number] #### [facility] ([facility]) [address] [place] [address]Djprro [Moles/Vol]139 mmol/AKvkdmr967-002UaxehtredtKettering Health PrebleComment on above:Performed By: #### LAB15 #### [facility] ([facility]) [address] [place] [address]Jzog nitrogen [Mass/Vol]36 mg/dLHigh7-25UnKettering Health PrebleComment on above:Performed By: #### [id number] #### [facility] ([facility]) [address] [place] [address]XLDL NITROGEN/CREATININE (MASS RATIO) IN SER/PLAS50.70Normal [facility] HospitalComment on above:Performed By: #### [id number] #### [facility] ([facility]) [address] [place], [place] [address]XIPRKYRGOTas 05-18-4942Kbgpqpcvmi (Bld) [Volume fraction]33.5 % Low36.0-48.0UnKettering Health PrebleComment on above:Performed By: #### [id number] #### [facility] ([facility]) [address] [place], [place] [address]XMZOJEZVDOpz 38-88-3144Xnbanbhjds (Bld) [Mass/Vol]10.7 g/dLLow 12.0-15.0UnKettering Health PrebleComment on above:Performed By: #### [id number] #### [facility] ([facility]) [address] [place], [place] [address]SOGTXSVV BLOOD GAS WITH ICAon 07-31-2769CRZD EXCESS-7 mmol/LLow -2-3The [facility] HospitalComment on above:Performed By: #### [id number] ####[facility] [address], USADELIVERY SYSTEMSVENTNormSt. Elizabeth Hospital Comment on above:Performed By: #### [id number] ####[facility] [place] [address], JQHFSF293 %NormalThe [facility] HospitalComment on above:Performed By: #### [id number] ####[facility] [place] [address], USAHCO3 (Bld) [Moles/Vol]17 mmol/RXbi19-76Sms [facility] HospitalComment on above:Performed By: #### 57514 ####[facility] [place] [address], USAIONIZED CALCIUM1.20 mmol/LNormal1.13-1.32The [facility] HospitalComment on above:Performed By: #### 47264 ####[facility] [place] [address], [place] MIN VOLUME6.7NoUniversity Hospitals Parma Medical CenterComment on above: Performed By: #### 85801 ####[facility] [place] [address], USAMODALITYVENTNoUniversity Hospitals Parma Medical CenterComment on above:Performed By: #### 07815 ####[facility] [place] [address], USAOxygen (Bld) [Partial pressure] 163 mm[Hg]Critically knhd53-663Jcj [facility] HospitalComment on above:Performed By: #### 55938 ####[facility] [place] [address], USAOxygen saturation in Blood97.1 %High94.0-97.0 The [facility] HospitalComment on above:Performed By: #### 15273 ####[facility] [place] [address], [place] WRM464 rbRsEbk33-12Qfn [facility] HospitalComment on above: Performed By: #### 82137 ####[facility] [place] [address], USAPEEP8.0 MUK56ButzffHfbUniversity Hospitals Parma Medical CenterComment on above:Performed By: #### 64151 ####[facility] [place] [address], USAPF UDHYV574 mmHgNoUniversity Hospitals Parma Medical CenterComment on above:Performed By: #### 54716 ####[facility] [place] [address], [place] pH (Bld)7.39 [pH]Normal7.35-7.45The [facility] HospitalComment on above:Performed By: #### 33455 ####[facility] [place] [address], USAPRESSURE NCKOLRT4VenncoWsaUniversity Hospitals Parma Medical CenterComment on above:Performed By: #### 92009 ####[facility] [place] [address], USABASE EXCESS-7 mmol/LLow-2-3The [facility] HospitalComment on above:Performed By: #### 77439 ####[facility] [place] [address], USADELIVERY SYSTEMSVENTBethesda North Hospital Comment on above:Performed By: #### 25325 ####[facility] [place] [address], LSTLGT182 %NormalThe [facility] HospitalComment on above:Performed By: #### 11808 ####[facility] [place] [address], USAHCO3 (Bld) [Moles/Vol]17 mmol/DEps58-86Apo [facility] HospitalComment on above:Performed By: #### 37601 ####[facility] [place] [address], USAIONIZED CALCIUM1.15 mmol/LNormal1.13-1.32The [facility] HospitalComment on above:Performed By: #### 80295 ####[facility] [place] [address], [place] MIN VOLUME8.2NormalThe [facility] HospitalComment on above: Performed By: #### 65048 ####[facility] [place] [address], USAMODALITYACNoUniversity Hospitals Parma Medical Center Comment on above:Performed By: #### 93131 ####[facility] [place] [address], USAOxygen (Bld) [Partial pressure]158 mm[Hg]Critically yhdq90-122Xns [facility] HospitalComment on above:Performed By: #### 23924 ####[facility] [place] [address], USAOxygen saturation in Blood97.6 %High94.0-97.0 The [facility] HospitalComment on above:Performed By: #### 13545 ####[facility] [place] [address], [place] OQE037 gnJbOfi55-22Btf [facility] HospitalComment on above: Performed By: #### 35912 ####[facility] [place] [address], USAPEEP8.0 RAC56ZfojrsIcoSt. Elizabeth HospitalComment on above:Performed By: #### 52816 ####[facility] [place] [address], USAPF YVJEV664 mmHgNoUniversity Hospitals Parma Medical CenterComment on above:Performed By: #### 11807 ####[facility] [place] [address], [place] pH (Bld)7.41 [pH]Normal7.35-7.45The [facility] HospitalComment on above:Performed By: #### 60831 ####[facility] [place] [address], USARespiratory rate12 /minNoUniversity Hospitals Parma Medical CenterComment on above:Performed By: #### 01849 ####[facility] [place] [address], USATIDAL VOLUME (VT) QK028EudtwmKfgSt. Elizabeth HospitalComment on above: Performed By: #### 76891 ####[facility] [place] [address], USABASE EXCESS-3 mmol/LLow-2-3The [facility] HospitalComment on above:Performed By: #### 10569 ####[facility] [place] [address], USADELIVERY SYSTEMSMVNormal The [facility] HospitalComment on above:Performed By: #### 12077 ####[facility] [place] [address], [place] EJD577 %NormalThe [facility] HospitalComment on above:Performed By: #### 04365 ####[facility] [place] [address], USAHCO3 (Bld) [Moles/Vol]21 mmol/ZLndfdu97-31Tvi [facility] HospitalComment on above:Performed By: #### 96923 ####[facility] [place] [address], USAIONIZED CALCIUM1.24 mmol/LNormal1.13-1.32The [facility] HospitalComment on above: Performed By: #### 27573 ####[facility] [place] [address], USAMIN VOLUME6.7NormalThUniversity Hospitals Parma Medical CenterComment on above:Performed By: #### 04425 ####[facility] [place] [address], USAMODALITYACNoUniversity Hospitals Parma Medical CenterComment on above:Performed By: #### 30046 ####[facility] [place] [address], USAOxygen (Bld) [Partial pressure]155 mm[Hg]Critically pjcx47-926Ixu [facility] HospitalComment on above:Performed By: #### 80807 ####[facility] [place] [address], [facility]AL MEDICAL CENTEROxygen saturation in Blood98.3 %High94.0-97.0The [facility] HospitalComment on above: Performed By: #### 90469 ####[facility] [place] [address], HLESHZ435 cpBzKjh80-61Mvc [facility] HospitalComment on above:Performed By: #### 08650 ####[facility] [place] [address], USAPEEP8.0 POK87CxvzjxPtcUniversity Hospitals Parma Medical CenterComment on above:Performed By: #### 35497 ####[facility] [place] [address], [place] pH (Bld)7.42 [pH]Normal7.35-7.45The [facility] HospitalComment on above:Performed By: #### 40777 ####[facility] [place] [address], USARespiratory rate12 /minNoUniversity Hospitals Parma Medical CenterComment on above:Performed By: #### 29900 ####[facility] [place] [address], USATIDAL VOLUME (VT) FG234TntaxmQosUniversity Hospitals Parma Medical CenterComment on above: Performed By: #### 10201 ####[facility] [place] [address], USABASIC METABOLIC PANELon 14-77-6250Tsnvfxy [Mass/Vol]7.9 mg/dLLow8.6-10.3The [facility] HospitalComment on above:Order Comment: No: Do not add to previous drawPerformed By: #### 17532 #### [facility] [address] [place] [address], USAChloride [Moles/Vol]110 mmol/RQedq71-194Kdr [facility] HospitalComment on above:Order Comment: No: Do not add to previous drawPerformed By: #### 49574 #### [facility] [address] [place] [address], USACO2 [Moles/Vol]20 mmol/HWax82-55Bfl [facility] HospitalComment on above:Order Comment: No: Do not add to previous draw Performed By: #### 77993 #### [facility] [address] [place] [address], USACreatinine [Mass/Vol]0.77 mg/dLNormal0.60-1.20The [facility] HospitalComment on above:Order Comment: No: Do not add to previous drawPerformed By: #### 57107 #### [facility] [address] [place] [address], USAGFR/1.73 sq M.predicted among blacks MDRD (S/P/Bld) [Vol rate/Area]mL/min/{1.73_m2}Normal>60The [facility] Comment on above:Order Comment: No: Do not add to previous drawPerformed By: #### 04004 #### [facility] [address] [place] [address], USAGFR/1.73 sq M.predicted among non-blacks MDRD (S/P/Bld) [Vol rate/Area]mL/min/{1.73_m2}Normal>60The [facility] Comment on above:Order Comment: No: Do not add to previous drawPerformed By: #### 10822 #### [facility] [address] [place] [address], USAGlucose [Mass/Vol]124 mg/kBOham10-875Bnr [facility] HospitalComment on above:Order Comment: No: Do not add to previous drawPerformed By: #### 34110 #### [facility] [address] [place] [address], USAPotassium [Moles/Vol]3.8 mmol/LNormal3.5-5.1The [facility] HospitalComment on above:Order Comment: No: Do not add to previous drawPerformed By: #### 10274 #### [facility] [address] [place] [address], USASodium [Moles/Vol]139 mmol/VJaauof192-524Vfd [facility] HospitalComment on above:Order Comment: No: Do not add to previous drawPerformed By: #### 95739 #### [facility] [address] [address], USAUrea nitrogen [Mass/Vol]26 mg/dLHigh7-25The [facility] HospitalComment on above:Order Comment: No: Do not add to previous drawPerformed By: #### 12361 #### [facility] [address] [address], USACBC COMPLETE BLOOD COUNTon 84-80-9086Atwahrmdvhz distribution width (RBC) [Ratio]18.3 %High11.5-15.0The [facility] HospitalComment on above:Order Comment: No: Do not add to previous draw Nurse drawPerformed By: #### 75625 #### [facility] [address] [address], USAHematocrit (Bld) [Volume fraction]24.4 %Low36.0-45.0The [facility] HospitalComment on above:Order Comment: No: Do not add to previous draw Nurse drawPerformed By: #### 79101 #### [facility] [address] [place] [address], USAHemoglobin (Bld) [Mass/Vol]8.2 g/dLLow12.0-15.0The [facility] HospitalComment on above:Order Comment: No: Do not add to previous draw Nurse drawPerformed By: #### 89711 #### [facility] [address] [place] [address], [facility] (RBC) [Entitic mass]30.5 fbOwhauy52.0-33.0The [facility] HospitalComment on above:Order Comment: No: Do not add to previous draw Nurse drawPerformed By: #### 50060 #### [facility] [address] [place] [id number], [facility] (RBC) [Mass/Vol]33.6 g/zAWhiswi36.0-35.0The [facility] HospitalComment on above:Order Comment: No: Do not add to previous draw Nurse drawPerformed By: #### 80876 #### [facility] [address] [place] [address], [facility] (RBC) [Entitic vol]90.7 iPMuzfbv11.0-98.0The [facility] HospitalComment on above:Order Comment: No: Do not add to previous draw Nurse drawPerformed By: #### 32750 #### [facility] [address] [place] [address], [facility] SAND[facility] REGION[facility] MEDICAL CENTERNucleated RBC/100 WBC (Bld) [Ratio]0 %Normal0-0The [facility] HospitalComment on above:Order Comment: No: Do not add to previous draw Nurse drawPerformed By: #### 91871 #### [facility] [address] [place] [address], USAPLAT KPB879 10*3/oKDjyovh765-642Gur [facility] HospitalComment on above:Order Comment: No: Do not add to previous draw Nurse drawPerformed By: #### 99536 #### [facility] [address] [place] [address], [facility] SANDOVAL REG[facility] MEDICAL CENTERRBC (Bld) [#/Vol]2.69 10*6/uLLow3.80-5.00The [facility] HospitalComment on above:Order Comment: No: Do not add to previous draw Nurse drawPerformed By: #### 10291 #### [facility] [address] [place] [address], USAWBC (Bld) [#/Vol]11.33 10*3/uLHigh4.00-10.60The [facility] HospitalComment on above:Order Comment: No: Do not add to previous draw Nurse drawPerformed By: #### 44384 #### [facility] [address] [place] [address], USACT BRAIN WO CONTRASTon 89-91-4288MU BRAIN WO CONTRAST [facility] Department of Radiology [address] [place] [id number] Patient Name: MEG GEORGES : 1965 Sex: F Age: Race: White Pt. Location: [place] [address] Patient Status: I Ordered Date: 08/21/2021 12:50:00 [...] report. Electronically signed: Martinez Hoover. Transcribed by: [email or web address], User Resident: ARIEL SOLORZANO Electronically Signed by: MARTINEZ HOOVER @ 08/21/2021 05:07 PM I personally read this/these film(s) with this [facility] CenterComment on above:Order Comment: Check NG Tube PositionCT FACIAL BONES W CONTRASTon 25-37-0280LF FACIAL BONES W CONTRASTUnKettering Health Preble Department of Radiology [address] [place] [phone] Patient Name: MEG GEORGES : 1965 Sex: F Age: Race: White Pt. Location: [place] [address] Patient Status: I Ordered Date: 08/21/2021 12:50:00 [...] above. Electronically signed: Martinez Hoover. Transcribed by: [email or web address], User Resident: Electronically Signed by: MARTINEZ HOOVER @ 08/21/2021 05:09 PMNormalThe [facility] HospitalComment on above:Order Comment: R/O AtelectasisLACTATE BLOODon 79-53-5924Uropnsk [Moles/Vol]0.6 mmol/LNormal.5-2.2 The [facility] HospitalComment on above:Order Comment: No: Do not add to previous drawPerformed By: #### 86487 ####[facility] [place] [address], USALIVER BATTERYon 08-21-2021 Albumin [Mass/Vol]2.3 g/dLLow3.5-5.7The [facility] Comment on above:Order Comment: No: Do not add to previous drawPerformed By: #### 57257 #### [facility] [address] [place] [address], USAALKALINE ZLUVKL744 IU/AFjhg53-936Hkj [facility] HospitalComment on above:Order Comment: No: Do not add to previous draw Performed By: #### 54928 #### [facility] [address] [place] [address], USAALT [Catalytic activity/Vol]9 U/LNormal7-52The [facility] HospitalComment on above:Order Comment: No: Do not add to previous drawPerformed By: #### 76873 #### [facility] [address] [place] [address], USAAST [Catalytic activity/Vol]12 U/SDon39-64Kcu [facility] HospitalComment on above:Order Comment: No: Do not add to previous drawPerformed By: #### 33060 #### [facility] [address] [place] [address], USABilirubin [Mass/Vol]0.4 mg/dLNormal0.3-1.0The [facility] HospitalComment on above:Order Comment: No: Do not add to previous drawPerformed By: #### 11284 #### [facility] [address] [place] [address], USABilirubin.direct [Mass/Vol]0.1 mg/dLNormal0.0-0.2The [facility] HospitalComment on above:Order Comment: No: Do not add to previous drawPerformed By: #### 88286 #### [facility] [address] [place] [address], USAProtein [Mass/Vol]5.7 g/dLLow6.0-8.3The [facility] HospitalComment on above:Order Comment: No: Do not add to previous drawPerformed By: #### 35789 #### [facility] [address] [place] [address], USAMAGNESIUM BLOODon 18-87-6898Aomkxxttz [Mass/Vol]2.1 mg/dL Normal1.9-2.7The [facility] HospitalComment on above:Order Comment: No: Do not add to previous drawPerformed By: #### 32629 #### [facility] [address] [place] [address], USAOperative Reporton 04-87-6843Inrtvxlrl ReportMR#: [id number] I [facility] Pt. Name: Meg Georges Room #: BECKY [id number] Discharge Date: Birthdate: 1965 OPERATIVE REPORT DATE OF SURGERY: 08/21/2021 SURGEON: Jerry Pozo MD Operative report: Percutaneous endoscopic gastrostomy tube placement Location: [facility] main OR Date: 08/21/2021 Preoperative diagnosis: Oropharyngeal dysphagia, nasopharyngeal erosion Postoperative diagnosis: Same Operation performed: Percutaneous endoscopic gastrostomy tube placement Surgeon: Jerry Pozo MD Recreation Engineer: Garfield Bowen MD ( resident PGY 5) Estimated blood loss: 2 mL Wound classification: Clean contaminated Tubes and drains: 20 English gastrostomy tube pull type Local anesthetic: 1% lidocaine plain, 4 mL used for subcutaneous infiltration Anesthesia: General anesthesia Indication: This is a 56-year-old woman who had a prolonged hospitalization at [facility] in [place] over the last several months for COVID-related pneumonia and subsequent bacterial pneumonia complications. Patient had chronic hypoxemic respiratory failure requiring placement of tracheostomy approximately 2 weeks ago prior to transfer to LTAC. Patient presented to [facility] 1 day ago for acute [...] Pozo MD Date Trans: 08/21/2021 11:17 A/ LAUREN_JN:[id number] cc: Johny Beckman M.D. [address] [facility]. Emergency Medicine [facility] [address] Neri Purcell D.O. [facility] WSt[facility] Fernando Jasso [facility] [address]OaqtfbOzaBethesda North HospitalPHOSPHORUS BLOODon 91-67-8803Vmrixjnco [Mass/Vol]2.3 mg/dLLow2.5-5.0The [facility] HospitalComment on above:Order Comment: No: Do not add to previous draw Performed By: #### 40141 #### [facility] [address] [place] [address], USAPOC GLUCOSE LABon 08-44-7673Jfmcixn [Mass/Vol]138 mg/dLHigh 70-100The [facility] HospitalComment on above:Performed By: #### 45651 #### [facility] [address] [place] [address], USAGlucose [Mass/Vol]164 mg/jVKrol77-193Wiy [facility] HospitalComment on above:Performed By: #### 23323 ####[facility] [place] [address], USAGlucose [Mass/Vol] 143 mg/yTKmfr17-423Pxp [facility] HospitalComment on above:Order Comment: Bleeding s/p recent tracheostomyPerformed By: #### 59030 ####[facility] [place] [address], [place] Glucose [Mass/Vol]124 mg/rAHaqa67-009Axd [facility] Comment on above:Performed By: #### 16953 ####[facility] [place] [address], USAPORTABLE CHEST 1 VIEWon 08-21-2021 PORTABLE CHEST 1 VIEWUnKettering Health Preble Department of Radiology [address] [place] [address] Patient Name: MEG GEORGES : 1965 Sex: F Age: Race: White Pt. Location: [place] [address] Patient Status: I Ordered Date: 08/21/2021 5:00:00 [...] unchanged. Electronically signed: Yaritza Young. Transcribed by: [email or web address], User Resident: Electronically Signed by: YARITZA YOUNG @ 08/21/2021 07:38 AMNormalThe [facility] HospitalComment on above:Order Comment: R/O Atelectasis*BLOOD CULTUREon 08-20-2021*BLOOD CULTUREClinical Report: (D) Specimen: BLOOD CULTURE Collected: 08/20/2021 00:47 Status: Final Last Updated: 08/25/2021 06:53 (1) RIGHT AC @ 0045. CULT RES (Final) No Growth [employer] [address] [place], [place] [address]Comment on above: Order Comment: RIGHT AC @ 0045.Performed By: #### 12836 #### [facility] [address]*BLOOD CULTUREClinical Report: (D) Specimen: BLOOD CULTURE Collected: 08/20/2021 00:47 Status: Final Last Updated: 08/25/2021 06:53 (1) LEFT AC @ 0040. CULT RES (Final) No Growth Day [address] [place], [place] [address]Comment on above: Order Comment: Bleeding s/p recent tracheostomyPerformed By: #### 37864 ####[facility] APTTon [id number] Coag (Bld) [Time]58.3 sHigh25.0-35.0The [facility] East HospitalComment on above:Result Comment: ALL RESULTS MUST [...] BE USED FOR THIS PURPOSE.Performed By: #### 46799 #### [facility] [address] [place] [address], [facility] MEDICAL CENTERARTERIAL BLOOD GAS WITH ICAon 07-59-7067TDYL EXCESS-2 mmol/HWduxsn-6-7Alq [facility] HospitalComment on above:Order Comment: RESULTS CHECKED AND CALLED. ACCURATELY READ BACK BY DR Duffyformed By: #### 65680 ####[facility] [facility] [place] [address], [facility] CENTERDELIVERY SYSTEMSOhio State University Wexner Medical CenterComment on above:Order Comment: RESULTS CHECKED AND CALLED. ACCURATELY READ BACK BY DR Duffyformed By: #### 75641 ####[facility] [facility] [place] [address], FARIHA355 %NormalThe [facility] East HospitalComment on above:Order Comment: RESULTS CHECKED AND CALLED. ACCURATELY READ BACK BY DR Bazzi By: #### 66595 ####[facility] [place] [address], [place] HCO3 (Bld) [Moles/Vol]20 mmol/TOkb08-06Tbj [facility] Comment on above:Order Comment: RESULTS CHECKED AND CALLED. ACCURATELY READ BACK BY DR Bazzi By: #### 40482 ####[facility] [place] [address], [facility] CENTERIONIZED CALCIUM1.09 mmol/LLow 1.13-1.32The [place] [facility] HospitalComment on above:Order Comment: RESULTS CHECKED AND CALLED. ACCURATELY READ BACK BY DR Bazzi By: #### 54520 ####[facility] [place] [address], USAMIN VOLUME8.9NoUniversity Hospitals Parma Medical CenterComment on above:Order Comment: RESULTS CHECKED AND CALLED. ACCURATELY READ BACK BY DR Bazzi By: #### 05574 ####[facility] [place] [place] [address], USAMODALITYACNoUniversity Hospitals Parma Medical CenterComment on above:Order Comment: RESULTS CHECKED AND CALLED. ACCURATELY READ BACK BY DR Duffyformed By: #### 67372 ####[facility] [place] [address], USAOxygen (Bld) [Partial pressure]239 mm[Hg]Critically axcn61-725Vza [facility] HospitalComhelen devos children's hospital on above:Order Comment: RESULTS CHECKED AND CALLED. ACCURATELY READ BACK BY DR Duffyformed By: #### 42004 ####[facility] [place] [address], USAOxygen saturation in Blood97.6 %High94.0-97.0The [facility] HospitalComment on above:Order Comment: RESULTS CHECKED AND CALLED. ACCURATELY READ BACK BY DR Duffyformed By: #### 28670 ####[facility] [place] [address], LGPPLN534 mmHgCritically eez85-76Pcs [facility] HospitalComhelen devos children's hospital on above:Order Comment: RESULTS CHECKED AND CALLED. ACCURATELY READ BACK BY DR Bazzi By: #### 41550 ####[facility] [place] [address], [place] PEEP8.0 MCP14NadatqNzbUniversity Hospitals Parma Medical CenterComhelen devos children's hospital on above:Order Comment: RESULTS CHECKED AND CALLED. ACCURATELY READ BACK BY DR CALI Performed By: #### 57982 ####[facility] [place] [address], USApH (Bld)7.52 [pH]High7.35-7.45The [facility] HospitalComment on above:Order Comment: RESULTS CHECKED AND CALLED. ACCURATELY READ BACK BY DR Bazzi By: #### 41570 ####[facility] [place] [address], USARespiratory rate14 /minNoUniversity Hospitals Parma Medical CenterComment on above:Order Comment: RESULTS CHECKED AND CALLED. ACCURATELY READ BACK BY DR Duffyformed By: #### 51221 ####[facility] [place] [address], USATIDAL VOLUME (VT) GN965FeuisyOjqUniversity Hospitals Parma Medical Center Comment on above:Order Comment: RESULTS CHECKED AND CALLED. ACCURATELY READ BACK BY DR Bazzi By: #### 96657 ####[facility] [place] [address], USABASIC METABOLIC PANELon 08-20-2021 Calcium [Mass/Vol]6.2 mg/dLCritically low8.6-10.3The [facility] HospitalComment on above:Order Comment: Check NG Tube PositionPerformed By: #### 28675, 74451, 58389, 06959 ####[facility] [place] [address], USAChloride [Moles/Vol]112 mmol/TOkui10-127Rrk [facility] HospitalComment on above:Order Comment: Check NG Tube PositionPerformed By: #### 48708, 61184, 14506, 45216 ####[facility] [place] [address], USACO2 [Moles/Vol]17 mmol/LLow 21-31The [facility] HospitalComment on above:Order Comment: Check NG Tube PositionPerformed By: #### 81043, 02318, 37020, 48101 ####[facility] [place] [address], [place] Creatinine [Mass/Vol]0.80 mg/dLNormal0.60-1.20The [facility] HospitalComment on above:Order Comment: Check NG Tube PositionPerformed By: #### 05022, 41206, 96205, 02930 ####[facility] [facility] [place] [address], USAGFR/1.73 sq M.predicted among blacks MDRD (S/P/Bld) [Vol rate/Area]mL/min/{1.73_m2}Normal>60The [facility] Comment on above:Order Comment: Check NG Tube PositionPerformed By: #### 17531, 12136, 72779, 71479 ####[facility] [place] [address], USAGFR/1.73 sq M.predicted among non-blacks MDRD (S/P/Bld) [Vol rate/Area]mL/min/{1.73_m2}Normal>60The [facility] Comment on above:Order Comment: Check NG Tube PositionPerformed By: #### 10369, 56050, 47641, 29342 ####[facility] [place] [address], [facility] CENTERGlucose [Mass/Vol]123 mg/tKKsxe36-317Xdq [facility] HospitalComment on above:Order Comment: Check NG Tube Position Performed By: #### 53921, 20377, 86585, 79059 ####[facility] [place] [address], [facility] CENTERPotassium [Moles/Vol]3.1 mmol/LLow 3.5-5.1The [facility] HospitalComment on above:Order Comment: Check NG Tube PositionPerformed By: #### 95389, 17180, 06002, 56528 ####[facility] [place] [address], [place] Sodium [Moles/Vol]137 mmol/XWrztly161-406Fvh [facility] Comment on above:Order Comment: Check NG Tube PositionPerformed By: #### 81455, 99012, 37370, 20856 ####[facility] [place] [address], USAUrea nitrogen [Mass/Vol]31 mg/dLHigh7-25The [facility] HospitalComment on above:Order Comment: Check NG Tube Position Performed By: #### 42405, 62077, 45502, 99647 ####[facility] [facility] [place] [address], [facility]ICAL CENTERCBC W/DIFFon 79-90-7869GTK IMM GRANS0.1 10*3/uLNormal0.0-0.2The [facility] HospitalComment on above:Order Comment: Bleeding s/p recent tracheostomyPerformed By: #### 41318 ####[facility] [place] [address], [place] ABS NEUTROPHILS9.2 10*3/uLHigh1.6-7.6The [facility] Comment on above:Order Comment: Bleeding s/p recent tracheostomyPerformed By: #### 05083 ####[facility] [place] [address], USABasophils (Bld) [#/Vol]0.0 10*3/uLNormal0.0-0.2The [facility] HospitalComment on above:Order Comment: Bleeding s/p recent tracheostomyPerformed By: #### 56845 ####[facility] [place] [address], [facility] CENTERBasophils/100 WBC (Bld)0.3 %Normal0.0-1.0The [facility] HospitalComment on above:Order Comment: Bleeding s/p recent tracheostomyPerformed By: #### 46678 ####[facility] [place] [address], USAEosinophils (Bld) [#/Vol]0.1 10*3/uLNormal0.0-0.5The [facility] HospitalComment on above: Order Comment: Bleeding s/p recent tracheostomyPerformed By: #### 19368 ####[facility] [place] [address], [facility] Eosinophils/100 WBC (Bld)0.4 %Normal0.0-6.0The [facility] HospitalComment on above:Order Comment: Bleeding s/p recent tracheostomyPerformed By: #### 47542 ####[facility] [place] [address], [facility] MEDICAL CENTERErythrocyte distribution width (RBC) [Ratio]17.2 %High11.5-15.0The [facility] HospitalComment on above:Order Comment: Bleeding s/p recent tracheostomyPerformed By: #### 58763 ####[facility] [place] [address], [facility] CENTERHematocrit (Bld) [Volume fraction] 23.9 %Low36.0-45.0The [facility] HospitalComment on above:Order Comment: Bleeding s/p recent tracheostomyPerformed By: #### 00255 ####[facility] [place] [address], [facility] CENTERHemoglobin (Bld) [Mass/Vol]8.1 g/dLLow12.0-15.0The [facility] HospitalComment on above:Order Comment: Bleeding s/p recent tracheostomyPerformed By: #### 97511 ####[facility] [place] [address], [facility] IMMATURE GRANS0.6 %Normal0.0-1.0The [facility] HospitalComment on above:Order Comment: Bleeding s/p recent tracheostomyPerformed By: #### 43143 ####[facility] [place] [address], [facility] Lymphocytes (Bld) [#/Vol]3.3 10*3/uLNormal1.2-4.0The [facility] HospitalComment on above:Order Comment: Bleeding s/p recent tracheostomy Performed By: #### 81018 ####[facility] [place] [address], [facility] CENTERLymphocytes/100 WBC (Bld)24.4 %Capqgy24.0-45.0The [facility] HospitalComment on above:Order Comment: Bleeding s/p recent tracheostomyPerformed By: #### 83722 ####[facility] [place] [address], [facility] – LAWTONH (RBC) [Entitic mass]30.6 pg Qsdmfl71.0-33.0The [facility] HospitalComment on above:Order Comment: Bleeding s/p recent tracheostomyPerformed By: #### 58257 ####[facility] [place] [address], [facility] CENTERMCHC (RBC) [Mass/Vol]33.9 g/qVZffbeo98.0-35.0The [facility] HospitalComment on above:Order Comment: Bleeding s/p recent tracheostomyPerformed By: #### 03649 ####[facility] [place] [address], [facility] CENTERMCV (RBC) [Entitic vol]90.2 oXHnijwl56.0-98.0The [facility] HospitalComment on above:Order Comment: Bleeding s/p recent tracheostomy Performed By: #### 94082 ####[facility] [place] [address], USAMonocytes (Bld) [#/Vol]1.0 10*3/uLNormal0.1-1.0The [facility] HospitalComment on above:Order Comment: Bleeding s/p recent tracheostomyPerformed By: #### 93858 ####[facility] [place] [address], USAMONOS7.2 %Normal5.0-12.0The [facility] HospitalComment on above:Order Comment: Bleeding s/p recent tracheostomyPerformed By: #### 90069 ####[facility] [place] [address], USANeutrophils/100 WBC (Bld)67.1 % Dkttlh08.0-72.0The [facility] HospitalComment on above:Order Comment: Bleeding s/p recent tracheostomyPerformed By: #### 05636 ####[facility] [place] [address], USANucleated RBC/100 WBC (Bld) [Ratio]0 %Normal0-0The [facility] Comment on above:Order Comment: Bleeding s/p recent tracheostomyPerformed By: #### 40282 ####[facility] [place] [address], USAPLAT VEQ890 10*3/zFZdvudr501-950Klx [facility] HospitalComment on above:Order Comment: Bleeding s/p recent tracheostomyPerformed By: #### 85592 ####[facility] [place] [address], USARBC (Bld) [#/Vol]2.65 10*6/uLLow3.80-5.00The [facility] HospitalComment on above:Order Comment: Bleeding s/p recent tracheostomy Performed By: #### 36710 ####[facility] [place] [address], USAWBC (Bld) [#/Vol]13.67 10*3/uLHigh4.00-10.60The [facility] HospitalComment on above:Order Comment: Bleeding s/p recent tracheostomyPerformed By: #### 10928 ####[facility] [place] [address], USAABS IMM GRANS0.2 10*3/uLNormal 0.0-0.2The [facility] HospitalComment on above:Performed By: #### 12143 ####[facility] [place] [address], [facility] CENTERABS EOCBSFGWRCT64.9 10*3/uLHigh1.6-7.6The [facility] HospitalComment on above:Performed By: #### 51067 ####[facility] [place] [address], [facility] CENTERBasophils (Bld) [#/Vol]0.1 10*3/uLNormal0.0-0.2The [facility] HospitalComment on above: Performed By: #### 32738 ####[address] [place] [address], [facility] CENTERBasophils/100 WBC (Bld)0.4 %Normal0.0-1.0The [facility] HospitalComment on above:Performed By: #### 00463 ####[facility] [place] [address], [facility] Eosinophils (Bld) [#/Vol]0.4 10*3/uLNormal0.0-0.5The [facility] HospitalComment on above:Performed By: #### 90933 ####[address] [place] [address], [facility] CENTEREosinophils/100 WBC (Bld) 1.7 %Normal0.0-6.0The [facility] HospitalComment on above: Performed By: #### 69164 ####[address] [place] [address], [facility] MEDICAL CENTERErythrocyte distribution width (RBC) [Ratio]17.4 %High 11.5-15.0The [facility] HospitalComment on above:Performed By: #### 19926 ####[address] [place] [address], USAHematocrit (Bld) [Volume fraction]25.5 %Low36.0-45.0The [facility] HospitalComment on above:Performed By: #### 32955 ####[place] [address], [facility] CENTERHemoglobin (Bld) [Mass/Vol]8.1 g/dLLow12.0-15.0The [facility] HospitalComment on above:Performed By: #### 54378 ####[place] [address], [facility] CENTERIMMATURE GRANS0.8 %Normal0.0-1.0The [facility] HospitalComment on above:Performed By: #### 01317 ####[place] [address], [facility] Lymphocytes (Bld) [#/Vol]2.8 10*3/uLNormal1.2-4.0The [facility] HospitalComment on above:Performed By: #### 14075 ####[place] [address], [facility] CENTERLymphocytes/100 WBC (Bld) 11.7 %Low20.0-45.0The [facility] HospitalComment on above: Performed By: #### 73041 ####[address] [place] [address], [facility] CENTERMCH (RBC) [Entitic mass]31.5 mpAgbqpz13.0-33.0The [facility] HospitalComment on above:Performed By: #### 22507 ####[address] [place] [address], [facility] MCHC (RBC) [Mass/Vol]31.8 g/dLLow32.0-35.0The [facility] HospitalComment on above:Performed By: #### 28246 ####[address] [place] [address], USAMCV (RBC) [Entitic vol]99.2 fL High82.0-98.0The [facility] HospitalComment on above:Performed By: #### 59608 ####[address] [place] [address], USAMonocytes (Bld) [#/Vol]1.5 10*3/uLHigh0.1-1.0The [facility] HospitalComment on above:Performed By: #### 20649 ####[address] [place] [address], USAMONOS6.2 %Normal 5.0-12.0The [facility] HospitalComment on above:Performed By: #### 47084 ####[address] [place] [address], USANeutrophils/100 WBC (Bld)79.2 %High40.0-72.0The [facility] HospitalComment on above:Performed By: #### 03429 ####[address] [place] [address], USANucleated RBC/100 WBC (Bld) [Ratio]0 %Normal0-0The [facility] HospitalComment on above:Performed By: #### 14101 ####[address] [place] [address], USAPLAT GYA607 10*3/bJLuyl711-935Gtq [facility] HospitalComment on above:Performed By: #### 62377 ####[address] [place] [address], USARBC (Bld) [#/Vol]2.57 10*6/uLLow3.80-5.00The [facility] HospitalComment on above:Performed By: #### 73307 ####[address] [place] [address], USAWBC (Bld) [#/Vol]23.85 10*3/uLHigh4.00-10.60 The [facility] HospitalComment on above:Performed By: #### 98503 ####[facility] [place], [place] [address]E[place] [address], [place] COMP METABOLIC PANELon 98-71-4568Wvxszli [Mass/Vol]2.5 g/dLLow3.5-5.7The [facility] HospitalComment on above:Performed By: #### 32713, 72183 ####[address] [place] [address], [facility] CENTERALKALINE YHTVUC213 IU/UNxid06-235Rtr [facility] HospitalComment on above:Performed By: #### 67266, 44140 ####[address] [place] [address], USAALT [Catalytic activity/Vol]14 U/LNormal7-52The [facility] HospitalComment on above:Performed By: #### 66417, 74625 ####[address] [place] [address], USAAST [Catalytic activity/Vol]21 U/L Fqajok92-09Lgs [facility] HospitalComment on above:Performed By: #### 84398, 30434 ####[facility] [place] [address], USABilirubin [Mass/Vol]0.6 mg/dLNormal0.3-1.0The [facility] HospitalComment on above:Performed By: #### 54616, 57361 ####[address] [place] [address], USACalcium [Mass/Vol]8.0 mg/dLLow8.6-10.3The [facility] HospitalComment on above:Performed By: #### 53403, 37905 ####[facility] [place] [address], USAChloride [Moles/Vol]101 mmol/KIgnpyt05-136Sxd [facility] HospitalComment on above: Performed By: #### 94810, 35664 ####[facility] [place] [address], USACO2 [Moles/Vol]21 mmol/NNqjimx21-46Kiv [facility] HospitalComment on above:Performed By: #### 81562, 29194 ####[facility] [place] [address], USACreatinine [Mass/Vol]0.99 mg/dLNormal0.60-1.20The [facility] HospitalComment on above:Performed By: #### 24861, 76723 ####[facility] [place] [address], USAeGFR- non- Yfhftwde26 ml/min/1.73sq mAbnormal>60The [facility] HospitalComment on above:Performed By: #### 52816, 21836 ####[facility] [place] [address], USAGFR/1.73 sq M.predicted among blacks MDRD (S/P/Bld) [Vol rate/Area]mL/min/{1.73_m2}Normal>60The [facility] HospitalComment on above:Performed By: #### 91776, 71222 ####[facility] [place] [address], USAGlucose [Mass/Vol]280 mg/hJVkpf53-522Cgq [facility] HospitalComment on above:Performed By: #### 93458, 61833 ####[facility] [place] [address], USAPotassium [Moles/Vol]4.1 mmol/LNormal3.5-5.1The [facility] HospitalComment on above: Performed By: #### 92443, 97063 ####[facility] [place] [address], USAProtein [Mass/Vol]6.5 g/dLNormal6.0-8.3The [facility] HospitalComment on above:Performed By: #### 09037, 15859 ####[facility] [place] [address], USASodium [Moles/Vol]134 mmol/UFkj912-273Aft [facility] HospitalComment on above:Performed By: #### 48127, 20756 ####[facility] [place] [address], USAUrea nitrogen [Mass/Vol] 32 mg/dLHigh7-25The [facility] HospitalComment on above: Performed By: #### 38961, 46082 ####[facility] [place] [address], USACTA CHESTon 06-76-7460EJG CHESTOhio State East Hospital Department of Radiology [address] [place] [id number] Patient Name: MEG GEORGES : 1965 Sex: F Age: Race: White Pt. Location: [facility] Patient Status: I Ordered Date: 08/19/2021 11:15:00 [...] report. Electronically signed: Charles Castillo. Transcribed by: [email or web address], User Resident: OLGA LIDIA WILLIS Electronically Signed by: CHARLES CASTILLO @ 08/20/2021 12:54 AM I personally read this/these film(s) with this residentBethesda North HospitalComment on above:Order Comment: R/O AtelectasisCTA NECKon [id number] [facility] Department of Radiology [address] [place] [phone] Patient Name: MEG GEORGES : 1965 Sex: F Age: Race: White Pt. Location: [facility] Patient Status: I Ordered Date: 08/19/2021 11:15:00 [...] report. Electronically signed: Charles Castillo. Transcribed by: [email or web address], User Resident: OLGA LIDIA WILLIS Electronically Signed by: CHARLES CASTILLO @ 08/20/2021 12:51 AM I personally read this/these film(s) with this [facility] CenterComment on above:Order Comment: Bleeding s/p recent tracheostomyEndoscopy Reporton [id number] ReportMR#: [id number] [facility] Pt. Name: Meg Georges Surgery Date: 08/20/2021 Room #: [facility] [id number] Date of : 1965 PROCEDURE NOTE ATTENDING: [...] Pozo M.D. Date Trans: 08/20/2021 05:17 P/ DN_JN:[id number] cc: Johny Beckman M.D. [address] [place] [address]. Emergency Medicine [facility] [address] [address] [facility] Fernando yCarrol [facility] [address]UfcasjMtcBethesda North HospitalFIBRIN DEGRADATION PRODUCTon 81-48-1384IJZ1 ug/mlAbnormal<5 ug/mlThe [facility] HospitalComment on above:Order Comment: No: Do not add to previous drawPerformed By: #### 55952 #### [facility] [address] [place] [address], USAFIBRINOGENon 35-37-9759IUHYCXMFUB755 mg/cZQtrg067-437OyjCoshocton Regional Medical CenterComment on above:Performed By: #### 40652 #### [facility] [address] [place] [address], [facility] CENTERFRESH FROZEN PLASMA 6 UNITSon 05-12-8772WTSORDG CODE [id number] NormalCoshocton Regional Medical CenterComment on above:Performed By: #### 36059 ####[facility] [facility] [place] [address], USAPRODUCT CODE [id number] North Hospital Comment on above:Performed By: #### 41413 ####[facility] [place] [address], USAPRODUCT CODE [id number] North HospitalComment on above:Performed By: #### 09300 ####[facility] [place] [address], [place] PRODUCT CODE [id number] Hospitals Parma Medical CenterComment on above:Performed By: #### 15910 ####[facility] [place] [address], USAPRODUCT CODE [id number] Hospitals Parma Medical CenterComment on above:Performed By: #### 25946 ####[facility] [place] [address], USAPRODUCT CODE [id number] Hospitals Parma Medical CenterComment on above:Performed By: #### 32274 ####[facility] [place] [address], [employer]AP[employer] STATUS 1PTBethesda North Hospital Comment on above:Result Comment: Result changed by IF on 08/20/2021 13:26. The previous value was XM. Result changed by IF on 08/21/2021 00:30. The previous value was IS.Performed By: #### [id number] ####[facility] [place] [address], [facility]APR[employer] STATUS 2RPe[facility] Comment on above:Result Comment: Result changed by IF on 08/20/2021 05:09. The previous value was XM. Result changed by IF on 08/20/2021 05:16. The previous value was XX.Performed By: #### [id number] ####[facility] [place] [address], [employer]AP[employer] STATUS 3RPeoples [facility] Comment on above:Result Comment: Result changed by IF on 08/20/2021 05:24. The previous value was XM. Result changed by IF on 08/20/2021 05:48. The previous value was XX.Performed By: #### [id number] ####[facility] [place] [address], [facility]AP[employer] STATUS 4RPe[facility] Comment on above:Result Comment: Result changed by IF on 08/22/2021 16:50. The previous value was XM. Result changed by IF on 08/25/2021 01:00. The previous value was XX.Performed By: #### [id number] ####[facility] [place] [address], USAPRODUCT STATUS [address] [place] [address] Comment on above:Result Comment: Result changed by IF on 08/20/2021 05:24. The previous value was XM. Result changed by IF on 08/20/2021 05:48. The previous value was XX.Performed By: #### [id number] ####[facility] [place] [address], USAPRODUCT STATUS [address] [place] [address] Comment on above:Result Comment: Result changed by IF on 08/20/2021 05:24. The previous value was XM. Result changed by IF on 08/20/2021 05:48. The previous value was XX.Performed By: #### 55269 ####[facility] [place] [address], USAUNIT ABO 1ANoUniversity Hospitals Parma Medical CenterComment on above:Performed By: #### 95306 ####[facility] [place] [address], USAPerformed By: #### 95043 ####[facility] [place] [address], USAUNIT ABO 2ANormal [facility] Medical CenterComment on above:Performed By: #### [id number] ####[facility] [place] [address], [place] UNIT ABO 3ANoUniversity Hospitals Parma Medical CenterComment on above: Performed By: #### [id number] ####[facility] [place] [address], USAUNIT ABO 4ANoUniversity Hospitals Parma Medical CenterComment on above:Performed By: #### 95964 ####[facility] [place] [address], USAUNIT ABO 5ANoUniversity Hospitals Parma Medical CenterComment on above:Performed By: #### 80545 ####[facility] [place] [address], USAUNIT ABO 6A [facility] North HospitalComment on above:Performed By: #### 80701 ####[facility] [place] [address], USAUNIT ID [id number] Health [facility] Comment on above:Performed By: #### [id number] ####[facility] [place] [address], USAUNIT ID [id number] Grady Memorial HospitalComment on above:Performed By: #### 76765 ####[facility] [place] [address], [facility] UNIT ID [id number] Regional Medical CenterComment on above:Performed By: #### [id number] ####[facility] [place] [address], USAUNIT ID [id number] Regional Medical CenterComment on above:Performed By: #### [id number] ####[facility] [place] [address], USAUNIT ID 5 [id number] Regional Medical CenterComment on above: Performed By: #### [id number] ####[facility] [place] [address], USAUNIT ID [id number] Regional Medical CenterComment on above:Performed By: #### 67415 ####[facility] [place] [address], USAUNIT RH 1PositiveNormal [facility] Regional Medical CenterComment on above:Performed By: #### 25014 ####[facility] [place] [address], [facility] Performed By: #### 74636 ####[facility] [place] [address], USAUNIT RH 2PositiveNormSt. Elizabeth HospitalComment on above:Performed By: #### 12445 ####[facility] [place] [address], USAUNIT RH 3PositiveNormSt. Elizabeth HospitalComment on above:Performed By: #### 15567 ####[facility] [place] [address], [place] UNIT RH 4PositiveNoUniversity Hospitals Parma Medical CenterComment on above: Performed By: #### 95923 ####[facility] [place] [address], USAUNIT RH 5PositiveNoUniversity Hospitals Parma Medical CenterComment on above:Performed By: #### [id number] ####[facility] [place] [address], USAUNIT RH 6PositiveNoUniversity Hospitals Parma Medical CenterComment on above:Performed By: #### 67425 ####[facility] [place] [address], [facility] LACTATE BLOODon 50-35-1416Uvqocfi [Moles/Vol]1.3 mmol/LNormal.5-2.2The [facility] HospitalComment on above:Performed By: #### 93728 #### [facility] [address] [place] [address], USALIVER BATTERYon 45-54-0174Pakiqyp [Mass/Vol]1.8 g/dLLow 3.5-5.7The [place] [facility] HospitalComment on above:Order Comment: Check NG Tube PositionPerformed By: #### 19088, 43247, 23790, 08810 ####[facility] [facility].[place] [address], [facility] ALKALINE QOWVNH356 IU/UXjvb71-632Avm [facility] HospitalComment on above:Order Comment: Check NG Tube PositionPerformed By: #### 21951, 10559, 02885, 82395 ####[facility] [place] [address], [facility] CENTERALT [Catalytic activity/Vol]10 U/LNormal7-52The [facility] HospitalComment on above:Order Comment: Check NG Tube PositionPerformed By: #### 87669, 46011, 86175, 33901 ####[facility] [facility] [place] [address], USAAST [Catalytic activity/Vol]12 U/FJia34-05Mbr [facility] HospitalComment on above:Order Comment: Check NG Tube PositionPerformed By: #### 13793, 97845, 14618, 81304 ####[facility] [place], [place] [address] [address], USABilirubin [Mass/Vol]0.4 mg/dLNormal0.3-1.0The [facility] HospitalComment on above:Order Comment: Check NG Tube PositionPerformed By: #### 94253, 56872, 88706, 79720 ####[address] [place] [address], [place] Bilirubin.direct [Mass/Vol]0.1 mg/dLNormal0.0-0.2The [facility] HospitalComment on above:Order Comment: Check NG Tube PositionPerformed By: #### 06062, 11474, 85571, 89901 ####[address] [place] [address], USAProtein [Mass/Vol]4.6 g/dLLow6.0-8.3The [facility] HospitalComment on above:Order Comment: Check NG Tube PositionPerformed By: #### 53769, 04261, 19415, 36173 ####[address] [place] [address], USAMAGNESIUM BLOODon 47-68-9356Ahkddfdgv [Mass/Vol]1.4 mg/dLLow1.9-2.7The [facility] HospitalComment on above:Order Comment: Check NG Tube PositionPerformed By: #### 46431, 60931, 32658, 45662 ####[facility] [place] [address].[place] [address], USAOSMOLALITY BLOODon 12-47-9631Wfplpqvbvv [Osmolality]309 mosm/ofPpvs041-408Tpe [facility] HospitalComment on above:Order Comment: No: Do not add to previous drawPerformed By: #### 83099 #### [facility] [address] [address], [facility] CENTERPHOSPHORUS BLOODon 28-01-6118Xatmyjxbe [Mass/Vol]2.4 mg/dL Low2.5-5.0The [facility] HospitalComment on above:Order Comment: Check NG Tube PositionPerformed By: #### 34457, 57571, 67824, 55399 ####[facility] [facility] [place] [address], [facility] PLATELET APHERESIS 1 UNITon 03-12-1457NTZDVPU CODE [id number]. Elizabeth HospitalComment on above:Performed By: #### 74072 ####[facility] [place] [address], [facility] CENTERUNIT ID 1 [id number] [facility] HospitalComment on above: Performed By: #### 53450 ####[facility] [place] [address], [facility] MEDICAL CENTERPRODUCT STATUS [address] [place], [place] [address]Comment on above:Result Comment: Result changed by IF on 08/21/2021 01:00. The previous value was XM.Performed By: #### 78083 ####[facility] [place] [address], [facility] Result Comment: Result changed by IF on 08/21/2021 08:54. The previous value was XM. Result changed by IF on 08/21/2021 18:31. The previous value was XX.Performed By: #### 51638 ####[facility] [place] [address], [facility]ANDOV[facility] REG[facility] MEDICAL CENTERPOC GLUCOSE LABon 24-10-6436Hzrlcpx [Mass/Vol]118 mg/fDIgwx51-789 The [facility] HospitalComment on above:Performed By: #### 48907 ####[facility] [place] [address], [facility] Glucose [Mass/Vol]142 mg/kEDxok51-034Tbx [facility] Comment on above:Performed By: #### 61296 ####[facility] [place] [address], USAGlucose [Mass/Vol]160 mg/dLHigh 70-100The [facility] HospitalComment on above:Performed By: #### 20009 ####[facility] [place] [address], USAGlucose [Mass/Vol]177 mg/jCUoxw74-519Yyv [facility] HospitalComment on above:Performed By: #### 89728 ####[facility] [place] [address], USAPOC SARS COV2 ANTIGEN NEGATIVEon 06-29-9116BXZ SARS COV2 ANTIGEN NEGNegativeNormalNEGATIVEThe [facility] HospitalComment on above:Result Comment: Negative results should [...] antigen from SARS-CoV-2 in direct nasopharyngeal swab (INPATIENT CODER) specimens from individuals who are suspected of [...] Compliance, or Certificate of Accreditation.Performed By: #### 61928 #### [facility] [address] [place] [address], USAPORTABLE CHEST 1 VIEWon 83-90-1291LBFBFHKP CHEST 1 VIEW [facility] Department of Radiology [address] [place] [address] Patient Name: MEG GEORGES : 1965 Sex: F Age: Race: White Pt. Location: [place] [address] Patient Status: I Ordered Date: 08/20/2021 5:20:00 [...] FINDINGS: Enteric tube tip outside the inferior cvvjg-pk-ctil, presumably within the stomach. Stable tracheostomy cannula. Stable cardiomediastinal silhouette. No new focal consolidation, significant effusion, or pneumothorax. Right upper extremity PICC, its tip at the mid SVC. IMPRESSION: Enteric tube tip likely within the stomach, outside the inferior ugsmx-ca-ugnw however Electronically signed: KIKE DICKSON. Transcribed by: [email or web address], User Resident: Electronically Signed by: KIKE DICKSON @ 08/20/2021 07:46 PMNormalThe [facility] HospitalComment on above:Order Comment: Check NG Tube PositionPORTABLE CHEST 1 VIEWUnKettering Health [facility] Department of Radiology [address] [place] [id number] Patient Name: MEG GEORGES : 1965 Sex: F Age: Race: White Pt. Location: [place] [address] Patient Status: I Ordered Date: 08/20/2021 7:50:00 [...] indeterminate. Electronically signed: Blossom Gongora. Transcribed by: [email or web address], User Resident: BLOSSOM GONGORA Electronically Signed by: BLOSSOM GONGORA @ 08/20/2021 09:10 AM I personally read this/these film(s) with this residentNoUniversity Hospitals Parma Medical CenterComment on above:Order Comment: evaluate for Atelectasis PORTABLE CHEST 1 VIEWUnKet[facility] Department of Radiology [address] [place] [id number] Patient Name: MEG GEORGES : 1965 Sex: F Age: Race: White Pt. Location: [facility] Patient Status: E Ordered Date: 08/19/2021 10:15:00 [...] abnormality. Electronically signed: Darci Monahan. Transcribed by: [email or web address], User Resident: Electronically Signed by: DARCI MONAHAN @ 08/19/2021 10:41 PMNormalThe [facility] HospitalComment on above:Order Comment: Check NG Tube Position PROTHROMBIN TIMEon 53-61-7731JPN Coag (PPP) [Relative time]1.70 {INR}High 0.91-1.16The [facility] HospitalComment on above:Order Comment: Check NG Tube PositionResult Comment: [facility] [place] RECOMMENDED INR FOR WARFARIN THERAPY ------- CONDITION [...] OPTIMAL THERAPEUTIC RANGE. CHEST 1995;108:231S-246S.Performed By: #### 67884 ####[facility] [place] [address], USAPT Coag (PPP) [Time]19.7 sHigh 12.3-14.8The [facility] HospitalComment on above:Order Comment: Check NG Tube PositionResult Comment: ALL RESULTS MUST BE INTERPRETED WITH RESPECT TO BLOOD DRAWING ARTIFACT OR DILUTION ERROR OF ANTICOAGULANT AT THE TIME OF SAMPLING.Performed By: #### 65253 ####[facility] [place] [address], USAINR Coag (PPP) [Relative time]1.47 {INR}High0.91-1.16The [facility] HospitalComment on above:Result Comment: [facility] RECOMMENDED INR [...] OPTIMAL THERAPEUTIC RANGE. CHEST 1995;108:231S-246S.Performed By: #### 38074, 74042, 29793, 14911 ####[facility] [place] [address], [facility] CENTERPT Coag (PPP) [Time]17.7 sHigh12.3-14.8The [facility] HospitalComment on above:Result Comment: ALL RESULTS MUST BE INTERPRETED WITH RESPECT TO BLOOD DRAWING ARTIFACT OR DILUTION ERROR OF ANTICOAGULANT AT THE TIME OF SAMPLING.Performed By: #### 68849, 23906, 59210, 20852 ####[facility] [place] [address], [facility] CENTERRBC'S 6 UNITSon 50-62-7840PXBCTXRPOU INTERP 1COMPNormal [facility] Medical CenterComment on above:Performed By: #### 45779 ####[facility] [place] [address], [place] CROSSMATCH INTERP 2COMPNormalThe [facility] HospitalComment on above:Performed By: #### 57199 ####[facility] [place] [address], USACROSSMATCH INTERP 3COMPBethesda North HospitalComment on above:Performed By: #### 96633 ####[facility] [place] [address], USACROSSMATCH INTERP 4COMPBethesda North HospitalComment on above: Performed By: #### 94387 ####[facility] [place] [address], USACROSSMATCH INTERP 5COMPBethesda North HospitalComment on above:Performed By: #### 94330 ####[facility] [place] [address], USACROSSMATCH INTERP 6COMP [facility] HospitalComment on above:Performed By: #### 31024 ####[facility] [place] [address], USAPRODUCT CODE [id number] Hospitals Parma Medical Center Comment on above:Performed By: #### 32975 ####[facility] [place] [address], USAPRODUCT CODE [id number] Hospitals Parma Medical CenterComment on above:Performed By: #### 76792 ####[facility] [place] [address], [place] PRODUCT CODE [id number] Hospitals Parma Medical CenterComment on above:Performed By: #### 38088 ####[facility] [place] [address], USAPRODUCT CODE [id number] North HospitalComment on above:Performed By: #### 87002 ####[facility] [place] [address], USAPRODUCT CODE 5 [id number] North HospitalComment on above:Performed By: #### 43310 ####[facility] [place] [address], USAPRODUCT CODE [id number] North Hospital Comment on above:Performed By: #### 34094 ####[facility] [place] [address], USAPRODUCT STATUS 2RPeoples HospitalComment on above:Result Comment: Result changed by IF on 08/20/2021 05:40. The previous value was XM. Result changed by IF on 08/20/2021 05:48. The previous value was XX.Performed By: #### 60122 ####[facility] [place] [address], USAPRODUCT STATUS 3RPeoples Hospital Comment on above:Result Comment: Result changed by IF on 08/22/2021 01:00. The previous value was XM.Performed By: #### 87912 ####[facility] [place] [address], USAPRODUCT STATUS 4RPeoples HospitalComment on above:Result Comment: Result changed by IF on 08/20/2021 05:40. The previous value was XM. Result changed by IF on 08/20/2021 05:48. The previous value was XX.Performed By: #### 19194 ####[facility] [place] [address], USAPRODUCT STATUS 5[facility] Comment on above:Result Comment: Result changed by IF on 08/22/2021 01:00. The previous value was XM.Performed By: #### 34491 ####[facility] [place] [address], USAPRODUCT STATUS 6RPeoples HospitalComment on above:Result Comment: Result changed by IF on 08/21/2021 08:54. The previous value was XM. Result changed by IF on 08/22/2021 01:00. The previous value was XX.Performed By: #### 38838 ####[facility] [place] [address], USAUNIT ABO 1ABethesda North HospitalComment on above:Performed By: #### 25475 ####[facility] [place] [address], USAUNIT ABO 2ABethesda North HospitalComment on above:Performed By: #### 08416 ####[facility] [place] [address], USAUNIT ABO 3ABethesda North HospitalComment on above:Performed By: #### 43676 ####[facility] [place] [address], [place] UNIT ABO 4ABethesda North HospitalComment on above: Performed By: #### 53136 ####[facility] [place] [address], USAUNIT ABO 5ABethesda North HospitalComment on above:Performed By: #### 91123 ####[facility] [place] [address], USAUNIT ABO 6ABethesda North HospitalComment on above:Performed By: #### 46453 ####[facility] [place] [address].[place] [address], USAUNIT ID 1 [id number] Regional Medical CenterComment on above: Performed By: #### 50884 ####[facility] [place] [address], USAUNIT ID [id number] Regional Medical CenterComment on above:Performed By: #### 62931 ####[facility] [place] [address], USAUNIT ID [id number] NormalCoshocton Regional Medical CenterComment on above:Performed By: #### 77923 ####[facility] [place] [address], USAUNIT ID [id number] [facility] Comment on above:Performed By: #### 85231 ####[facility] [place] [address], USAUNIT ID [id number] Regional Medical CenterComment on above:Performed By: #### 81107 ####[facility] [place] [address], [place] UNIT ID [id number] Regional Medical CenterComment on above:Performed By: #### 58882 ####[facility] [place] [address], USAUNIT RH 1PositiveNoUniversity Hospitals Parma Medical CenterComment on above:Performed By: #### 90341 ####[facility] [place] [address], USAUNIT RH 2Positive NormalThe [facility] HospitalComment on above:Performed By: #### 78884 ####[facility] [place] [address], USAUNIT RH 3PositiveNormSt. Elizabeth HospitalComment on above:Performed By: #### 71866 ####[facility] [place] [address], USAUNIT RH 4PositiveNormSt. Elizabeth HospitalComment on above:Performed By: #### 87662 ####[facility] [place] [address], USAUNIT RH 5Positive NormalThe [facility] HospitalComment on above:Performed By: #### 68344 ####[facility] [place] [address], USAUNIT RH 6PositiveNoUniversity Hospitals Parma Medical CenterComment on above:Performed By: #### 42926 ####[facility] [place] [address], USATRIGLYCERIDES BLOODon 63-57-8459Zmsxwhlrcupp [Mass/Vol]147 mg/pMUrtzdk17-922Dwl [facility] HospitalComment on above:Order Comment: No: Do not add to previous drawResult Comment: TRIGLYCERIDE REFERENCE RANGE: 20 YEARS AND OLDER CARDIOVASCULAR RISK LESS THAN 150 mg/dl LOW RISK 150 TO 199 mg/dl BORDERLINE RISK 200 mg/dl AND GREATER HIGH RISKPerformed By: #### 99632 #### [facility] [address] [place] [address], USATROPONIN-Ion 65-83-7260Kevtifyc I.cardiac [Mass/Vol]0.03 ng/mLNormal0.00-0.04The [facility] HospitalComment on above: Result Comment: REFERENCE RANGES: 0.00 - 0.04 ng/ml NORMAL 0.05 - 0.50 ng/ml INDETERMINATE > 0.50 ng/ml CONSISTENT WITH AN M.I.Performed By: #### 09659, 46435 ####[facility] [place] [address], [place] TYPE AND CROSSMATCHon 61-34-9423CCV INTERPRETATIONANoUniversity Hospitals Parma Medical CenterComment on above:Performed By: #### 76173 #### [facility] [address] [place] [address], USARH INTERPRETATIONPositiveBethesda North HospitalComment on above:Performed By: #### 35107 #### [facility] [address] [place] [address], [facility] CENTERrb emergency releaseon 93-73-2238TECGWCRBKS INTERP 1COMP NormalCoshocton Regional Medical CenterComment on above:Performed By: #### RBCER ####[facility] [place] [address], USACROSSMATCH INTERP 2COMPNoUniversity Hospitals Parma Medical Center Comment on above:Result Comment: This result added by IF on 08/20/2021 02:44. Performed By: #### RBCER ####[facility] [place] [address], USACROSSMATCH INTERP 3COMPBethesda North HospitalComment on above:Result Comment: This result added by IF on 08/20/2021 02:44.Performed By: #### RBCER ####[facility] [place] [address], [facility] CENTERPRODUCT CODE [id number] Hospitals Parma Medical CenterComment on above:Performed By: #### RBCER ####[facility] [place] [address], [facility] PRODUCT CODE [id number] Hospitals Parma Medical CenterComment on above:Performed By: #### RBCER ####[facility] [place] [address], [facility] CENTERPRODUCT CODE [id number] Hospitals Parma Medical CenterComment on above:Performed By: #### RBCER ####[facility] [place] [address], [facility] MED[facility] CENTERPRODUCT STATUS 1PT NormalThe [facility] HospitalComment on above:Result Comment: Result changed by IF on 08/20/2021 02:42. The previous value was EI. Result changed by IF on 08/21/2021 00:30. The previous value was PI.Performed By: #### RBCER ####[facility] [place] [address], USAPRODUCT STATUS 2PAkron [facility] Comment on above:Result Comment: Result changed by IF on 08/20/2021 02:44. The previous value was EI. Result changed by IF on 08/21/2021 00:30. The previous value was PI.Performed By: #### RBCER ####[facility] [place] [address], USAPRODUCT STATUS 3PAkron Children's Hospital Comment on above:Result Comment: Result changed by IF on 08/20/2021 02:44. The previous value was EI. Result changed by IF on 08/21/2021 00:30. The previous value was PI.Performed By: #### RBCER ####[facility] [place] [address], USAUNIT ABO 1[facility] Medical CenterComment on above:Performed By: #### RBCER ####[facility] [place] [address], USAUNIT ABO 2[facility] Medical CenterComment on above:Performed By: #### RBCER ####[facility] [place] [address], USAUNIT ABO 3[facility] Medical CenterComment on above:Performed By: #### RBCER ####[facility] [place] [address], [place] UNIT ID [id number] HospitalComment on above:Performed By: #### RBCER ####[facility] [place] [address], USAUNIT ID [id number] [place], [place] [address]Comment on above:Performed By: #### RBCER ####[facility] [place] [address], USAUNIT ID 3 [id number] Hospitals Parma Medical CenterComment on above: Performed By: #### RBCER ####[facility] [place] [address], USAUNIT RH 1NegaMercy Health Allen HospitalComment on above:Performed By: #### RBCER ####[facility] [place] [address], USAUNIT RH 2NegaMercy Health Allen HospitalComment on above:Performed By: #### RBCER ####[facility] [place] [address], [place] UNIT RH 3NegativeBethesda North HospitalComment on above: Performed By: #### RBCER ####[facility] [place] [address], USACT BRAIN WO CONTRAST [id number] BRAIN WO CONTRAST [facility] Department of Radiology [address] [place] [id number] Patient Name: MEG GEORGES : 1965 Sex: F Age: Race: White Pt. Location: [facility] Patient Status: Ordered Date: 08/15/2021 12:05:00 PM Completed Date: 08/15/2021 04:06 PM Requesting Provider: GANGA SAVAGE Attending Provider: Report Copy To: Signs & Symptoms: R/O Bleed History: Order in [facility] [phone] Trach/vent Comments: Exam: CT BRAIN WO CONTRAST [...] findings. Electronically signed: Angel Beal. Transcribed by: [email or web address], User Resident: Electronically Signed by: ANGEL BEAL @ 08/15/2021 04:12 PMNormalCoshocton Regional Medical CenterBasic Metabolic Panel w/ Reflex to MGon 29-43-2442Fwpsn gap [Moles/Vol]11 mmol/L9 - 17 mmol/LBON [facility] Calcium [Mass/Vol]8.5 mg/dLLow8.6 - 10.4 mg/dLBON [facility] MERCY HEALTHChloride [Moles/Vol]107 mmol/L98 - 107 mmol/LBON [facility] HEALTHCO2 [Moles/Vol]24 mmol/L20 - 31 mmol/LBON [facility] HEALTHCreatinine [Mass/Vol]0.54 mg/dL0.50 - 0.90 mg/dLBON [facility] MERCY HEALTHGFR >60>60 mL/minBON [facility] MERCY HEALTHGFR Non->60>60 mL/minHEALTHSOUTH MEDICAL [facility]ENTER GFR/1.73 sq M.predicted MDRD (S/P/Bld) [Vol rate/Area][facility] Glucose [Mass/Vol]150 mg/oYDtpi26 - 99 mg/dLBON [facility] Interpretation and review of laboratory resultsAbnormalHEALTHSOUTH MEDICAL [facility]ENTER Potassium [Moles/Vol]3.3 mmol/LLow3.7 - 5.3 mmol/LBON [facility] HOSPITALSodium [Moles/Vol]142 mmol/L135 - 144 mmol/LBON [facility]IST HOSPITALUrea nitrogen (BldV) [Mass/Vol]11 mg/dL6 - 20 mg/dLBON [facility] - AVERACBC with Auto Differentialon 63-71-8879Ujxlxtiv Eos #0.45HighHEALTHSOUTH MEDICAL CENTERAbsolute Immature Granulocyte<0.03[facility]ICAL CENTERAbsolute Lymph #2.27BON [facility] HOSPITALAbsolute [place] #0.58[facility] Basophils (Bld) [#/Vol]0.05 10*3/uLBON [facility] HOSPITALBasophils/100 WBC (Bld)1 %0 - 2 %[facility] MED[facility] CENTEREosinophils/100 WBC (Bld)5 %High1 - 4 % [facility] MED[facility] CENTERHematocrit (Bld) [Volume fraction]28.0 %Low36.3 - 47.1 % [facility] MED[facility] CENTERHemoglobin (Bld) [Mass/Vol]8.9 g/dLLow11.9 - 15.1 g/dL [facility] CENTERImmature granulocytes/100 WBC (Bld)0 %0[facility] CENTERInterpretation and review of laboratory resultsAbnormalHEALTHSOUTH MEDICAL CENTERLymphocytes/100 WBC (Bld)25 %24 - 43 %[facility]ENTERH (RBC) [Entitic mass]31.3 pg25.2 - 33.5 pgCHESAPEAKE REGIONAL MEDICAL CENTERHC (RBC) [Mass/Vol] 31.8 g/dL28.4 - 34.8 g/dLBON [facility] MERCY HEALTHMCV (RBC) [Entitic vol]98.6 fL 82.6 - 102.9 fLHEALTHSOUTH MEDICAL CENTERMonocytes/100 WBC (Bld)7 %3 - 12 %[facility]ALTH[facility] MEDICAL CENTERNRBC Automated0.00.0 per 100 WBCHEALTHSOUTH MEDICAL CENTER Platelet distribution width (Bld) [Ratio]17.5 %High11.8 - 14.4 %[facility]ALTH[facility] MEDICAL CENTERPlatelet mean volume (Bld) [Entitic vol]8.8 fL8.1 - 13.5 fLHEALTHSOUTH MEDICAL CENTERPlatelets (Bld) [#/Vol]576 10*3/uLHighBON [facility] METHODIST HOSPITALRBC (Bld) [#/Vol]2.84 10*6/uLLow3.95 - 5.11 m/uLHEALTHSOUTH MEDICAL CENTER RBC (Bld) [#/Vol]ANISOCYTOSIS PRESENTHEALTHSOUTH MEDICAL CENTERSeg Lzrebasonel41 % 36 - 65 %BON [facility] METHODIST HOSPITALSegs Absolute5.62BON [facility]IST HOSPITALWBC (Bld) [#/Vol]9.0 10*3/uLBON [facility] Magnesiumon 80-50-2611Wyxclkmko [Mass/Vol]1.8 mg/dL1.6 - 2.6 mg/dLBON [facility] Glucose Fingerstickon 65-09-8543Kdcarld [Mass/Vol]188 mg/vXRwnk94 - 105 mg/dLBON [facility] HOSPITALInterpretation and review of laboratory resultsAbnormalINOVA ALEXANDRIA HOSPITALGlucose [Mass/Vol]218 mg/cIPurz20 - 105 mg/dLBON [facility] Interpretation and review of laboratory resultsAbnormalHEALTHSOUTH MEDICAL [facility]ENTER BON [facility] HOSPITALGlucose [Mass/Vol]133 mg/sIMqge47 - 105 mg/dLBON [facility] HOSPITALInterpretation and review of laboratory resultsAbnormalCH[facility] Glucose Fingerstickon 38-67-7754Niryxsw [Mass/Vol]204 mg/xJJwsw83 - 105 mg/dLBON [facility] HOSPITALInterpretation and review of laboratory resultsAbnormalINOVA ALEXANDRIA HOSPITALGlucose [Mass/Vol]184 mg/wGVnwa13 - 105 mg/dLBON [facility] Interpretation and review of laboratory resultsAbnormalHEALTHSOUTH MEDICAL CENTER BON [facility] HOSPITALGlucose [Mass/Vol]202 mg/xCFwgu38 - 105 mg/dLBON [facility] HOSPITALInterpretation and review of laboratory resultsAbnormalINOVA ALEXANDRIA HOSPITALGlucose [Mass/Vol]126 mg/sTGfry15 - 105 mg/dLBON [facility] HOSPITALInterpretation and review of laboratory results AbnormalINOVA ALEXANDRIA HOSPITALBasic Metabolic Panel w/ Reflex to MGon 69-41-5351Uffsb gap [Moles/Vol]11 mmol/L9 - 17 mmol/LBON [facility] HOSPITALCalcium [Mass/Vol]7.9 mg/dLLow8.6 - 10.4 mg/dLBON [facility] HOSPITALChloride [Moles/Vol]108 mmol/LHigh98 - 107 mmol/LBON [facility] CO2 [Moles/Vol]22 mmol/L20 - 31 mmol/LBON [facility] HOSPITALCreatinine [Mass/Vol]0.59 mg/dL0.50 - 0.90 mg/dLBON [facility] HOSPITALGFR >60>60 mL/minHEALTHSOUTH MEDICAL CENTERGFR Non->60>60 mL/minHEALTHSOUTH MEDICAL CENTERGFR/1.73 sq M.predicted MDRD (S/P/Bld) [Vol rate/Area][facility] CENTERGlucose [Mass/Vol]193 mg/qGKxob89 - 99 mg/dL [facility]ENTERInterpretation and review of laboratory resultsAbnormal [facility]ENTERPotassium [Moles/Vol]3.8 mmol/L3.7 - 5.3 mmol/LBON [facility] HOSPITALSodium [Moles/Vol]141 mmol/L135 - 144 mmol/LBON [facility]IST HOSPITALUrea nitrogen (BldV) [Mass/Vol]11 mg/dL6 - 20 mg/dLBON [facility] - AVERACBC with Auto Differentialon 77-52-4181Pmorihnl Eos #0.29BON [facility] HOSPITALAbsolute Immature Granulocyte0.04BON [facility]ITALY HEALTHAbsolute Lymph #2.17B[facility]ITALY HEALTHAbsolute [place] #0.64[facility] HEALTHBasophils (Bld) [#/Vol]0.04 10*3/uLBON [facility] HEALTH Basophils/100 WBC (Bld)0 %0 - 2 %B[facility] URBANA HOSPITALEosinophils/100 WBC (Bld)3 %1 - 4 %BON [facility]IST HOSPITALHematocrit (Bld) [Volume fraction]24.6 % Low36.3 - 47.1 %[facility] MED[facility] CENTERHemoglobin (Bld) [Mass/Vol]8.0 g/dLLow 11.9 - 15.1 g/dLBON SECSUBURBAN COMMUNITY HOSPITAL & BRENTWOOD HOSPITALImmature granulocytes/100 WBC (Bld)0 %0 [facility] CENTERInterpretation and review of laboratory resultsAbnormal BON [facility] METHODIST HOSPITALLymphocytes/100 WBC (Bld)23 %Low24 - 43 %[facility] CENTERH (RBC) [Entitic mass]31.7 pg25.2 - 33.5 pgBON SECOHIOHEALTH SHELBY HOSPITALHC (RBC) [Mass/Vol]32.5 g/dL28.4 - 34.8 g/dLBON SECOHIOHEALTH SHELBY HOSPITALV (RBC) [Entitic vol]97.6 fL82.6 - 102.9 fLBON [facility] HEALTHMonocytes/100 WBC (Bld)7 %3 - 12 %HEALTHS[facility] MEDICAL CENTERNRBC Automated0.00.0 per 100 WBCBON SECRIVERSIDE MEDICAL [facility]ENTER HEALTHPlatelet distribution width (Bld) [Ratio]17.8 %High11.8 - 14.4 %BON [facility] HEALTHPlatelet mean volume (Bld) [Entitic vol]8.9 fL8.1 - 13.5 fLBON [facility] HEALTHPlatelets (Bld) [#/Vol]514 10*3/uLHighBON SECOU[facility] MER[facility] HEALTH URBANA HOSPITALRBC (Bld) [#/Vol]2.52 10*6/uLLow3.95 - 5.11 m/uLBON SECOURS eVestment HEALTHRBC (Bld) [#/Vol]ANISOCYTOSIS PRESENTBON [email or web address] HEALTHSeg Oeoqtmtvazj33 %High36 - 65 %BON [email or web address] HEALTHSegs Absolute6.36BON SECJORGE eVestment HEALTHWBC (Bld) [#/Vol]9.5 10*3/uLBON SECJORGE BARCLAYY HEALTHARASELI SECJORGE In Hand GuidesY HEALTHEKG 12 LeadOrdered By: Deshawn Galloway on 38-47-5535Uwgixy Lvcn88OXU BON [email or web address] HEALTH Work Phone: [phone] Glwq88wcvipkcGVA SECTapulousY HEALTH Work Phone: [phone]-R Uwfdabty915 msBON SECTapulousY HEALTH Work Phone: [phone] Ygwfzkyj126 msBON SECTapulousY HEALTH Work Phone: [phone] Uksqtdhx46 msBON SECTapulousY HEALTH Work Phone: QTc Calculation (Dm)457 msBON [email or web address] HEALTH Work Phone: [phone] [place]-4degreesBON [email or web address] HEALTH Work Phone: [phone] Ranq79fhxaybiPMA [email or web address] HEALTH Work Phone: [phone] Iskr61TJXDVF [email or web address] HEALTH Work Phone: BON [email or web address] HEALTH Work Phone: EKG 12 Leadon 48-51-3842GRAI STV MUSEARASELI [email or web address] HEALTH Work Phone: poc Glucose Fingerstickon 15-20-5042Kkmsjqz [Mass/Vol] 147 mg/bXKmqw47 - 105 mg/dLBON [email or web address] HEALTHInterpretation and review of laboratory resultsAbnormalBON SECOU[facility] DOCTORS HOSPITALY HEALTHSIERRA [facility] [email or web address] HEALTH Glucose [Mass/Vol]157 mg/tFYfnu55 - 105 mg/dLBON [email or web address] HEALTH Interpretation and review of laboratory resultsAbnormalBON [email or web address] HEALTH BON [email or web address] HEALTHGlucose [Mass/Vol]207 mg/oOEchp70 - 105 mg/dLBON [email or web address] HEALTHInterpretation and review of laboratory resultsAbnormalBON SECJORGE DOCTORS HOSPITALSalma [facility] HEALTHGlucose [Mass/Vol]214 mg/pMGhae60 - 105 mg/dLBON [facility] HEALTHInterpretation and review of laboratory results AbnormalBON [facility] HEALTHC Glucose Fingerstick on 27-44-6682Rismlqn [Mass/Vol]206 mg/uRFchu92 - 105 mg/dLBON [facility] HEALTHInterpretation and review of laboratory resultsAbnormalBON SECJORGE [facility] HEALTHGlucose [Mass/Vol]202 mg/bDJmmn60 - 105 mg/dLBON [facility] HEALTHInterpretation and review of laboratory resultsAbnormalBON [facility] HEALTHGlucose [Mass/Vol]179 mg/rVIybo86 - 105 mg/dLBON [facility] HEALTHInterpretation and review of laboratory results AbnormalHENRICO DOCT[facility] HEALTHGlucose [Mass/Vol]144 mg/aNLkyq00 - 105 mg/dLBON [facility] HEALTHInterpretation and review of laboratory resultsAbnormalINOVA ALEXANDRIA [facility]OS[facility]ITAL Glucose [Mass/Vol]154 mg/cIUqrf36 - 105 mg/dLBON [facility] HEALTH Interpretation and review of laboratory resultsAbnormalSENTARA LEIGH HOSPITALGlucose [Mass/Vol]150 mg/tXPbxp33 - 105 mg/dLBON [facility] HEALTHInterpretation and review of laboratory resultsAbnormalHENRICO [facility] HEALTHGlucose [Mass/Vol]153 mg/nCLcyq31 - 105 mg/dLBON [facility] HEALTHInterpretation and review of laboratory results AbnormalINOVA ALEXANDRIA HOSPITALTSHon 08-07-2021 Interpretation and review of laboratory resultsAbnormalHEALTHSOU[facility] TSH Qn7.90 m[IU]/LHighINOVA ALEXANDRIA HOSPITALXR CERVICAL SPINE FLEXION AND EXTENSIONon 51-81-4734MKDW RIS CONSOLIDATEDMHPN RIS [facility] Work Phone: radiology Study observation (narrative)[facility] Work Phone: XR CERVICAL SPINE FLEXION AND EXTENSIONOrdered By: Paramjit Saenz on 38-32-8566QCQ [employer] Work Phone: Basic Metabolic Panel w/ Reflex to MGon 08-06-2021 Anion gap [Moles/Vol]11 mmol/L9 - 17 mmol/LBON SECMoneyFarmCalcium [Mass/Vol]8.5 mg/dLLow8.6 - 10.4 mg/dLBON SECMoneyFarmChloride [Moles/Vol]109 mmol/LHigh98 - 107 mmol/LBON SECMoneyFarmCO2 [Moles/Vol] 23 mmol/L20 - 31 mmol/LBON IntegenXCreatinine [Mass/Vol]0.55 mg/dL 0.50 - 0.90 mg/dLBON IntegenXGFR >60>60 mL/minSIERRA VISTA REGIONAL [facility]ENTER IntegenXGFR Non->60>60 mL/minSIERRA VISTA REGIONAL [facility]ALTH [facility]ENTER IntegenXGFR/1.73 sq M.predicted MDRD (S/P/Bld) [Vol rate/Area][facility] IntegenXGlucose [Mass/Vol]48 mg/dLLow70 - 99 mg/dLBON [employer]X Interpretation and review of laboratory resultsAbnormalBON IntegenX Potassium [Moles/Vol]3.6 mmol/LLow3.7 - 5.3 mmol/LBON SECMoneyFarmSodium [Moles/Vol]143 mmol/L135 - 144 mmol/LBON [facility] HOSPITALMoneyFarmUrea nitrogen (BldV) [Mass/Vol]11 mg/dL6 - 20 mg/dLBON SECMoneyFarmBON IntegenXCBC with Auto Differentialon 22-05-1403Hfacnmfh Eos #0.28BON SECOURS In Hand GuidesY Sim Ops StudiosAbsolute Immature Granulocyte0.07BON SEC[facility] Sim Ops StudiosAbsolute Lymph # 2.04B[facility] SEC[facility]RS In Hand GuidesY HEALTHAbsolute [place] #0.61BON SECOURS [email or web address] (Bld) [#/Vol]0.04 10*3/uLBON SECOURS [email or web address]/100 WBC (Bld)0 %0 - 2 %[facility] CENTEREosinophils/100 WBC (Bld)2 %1 - 4 %[facility] MEDICAL CENTERHematocrit (Bld) [Volume fraction]26.3 %Low36.3 - 47.1 %[facility] CENTERHemoglobin (Bld) [Mass/Vol]8.6 g/dLLow11.9 - 15.1 g/dLBON SECSUBURBAN COMMUNITY HOSPITAL & BRENTWOOD HOSPITALImmature granulocytes/100 WBC (Bld)1 %Rqzb5JTCHEALTHSOUTH MEDICAL CENTER Interpretation and review of laboratory resultsAbnormalBON [facility] Lymphocytes/100 WBC (Bld)17 %Low24 - 43 %[facility] CENTERH (RBC) [Entitic mass]31.9 pg25.2 - 33.5 pgCHESAPEAKE REGIONAL MEDICAL CENTERHC (RBC) [Mass/Vol] 32.7 g/dL28.4 - 34.8 g/dLBON [facility] (RBC) [Entitic vol]97.4 fL 82.6 - 102.9 fLHEALTHSOUTH MEDICAL CENTERMonocytes/100 WBC (Bld)5 %3 - 12 %[facility] MEDICAL CENTERNRBC Automated0.00.0 per 100 WBCHEALTHSOUTH MEDICAL CENTER Platelet distribution width (Bld) [Ratio]18.0 %High11.8 - 14.4 %[facility]ALTH[facility] MEDICAL CENTERPlatelet mean volume (Bld) [Entitic vol]8.4 fL8.1 - 13.5 fLHEALTHSOUTH MEDICAL CENTERPlatelets (Bld) [#/Vol]565 10*3/uLHighHEALTHSOUTH MEDICAL CENTERRBC (Bld) [#/Vol]2.70 10*6/uLLow3.95 - 5.11 m/uLHEALTHSOUTH MEDICAL CENTER RBC (Bld) [#/Vol]ANISOCYTOSIS PRESENTHEALTHSOUTH MEDICAL CENTERSeg Fsqkbyyqgge16 % High36 - 65 %BON [facility] HOSPITALSegs Absolute9.28HighHEALTHSOUTH MEDICAL CENTERWBC (Bld) [#/Vol]12.3 10*3/uLHighBON [facility] AVERANo Panel Informationon 38-45-5192Cprqdodtnrnspj and review of laboratory resultsAbnormalCH[facility] Glucose Fingerstickon 89-77-1212Kdfoxeb [Mass/Vol]158 mg/vJLmlq48 - 105 mg/dLBON [facility] HEALTHInterpretation and review of laboratory resultsAbnormalBON SECSANF[facility] HEALTHGlucose [Mass/Vol]125 mg/tVSngd41 - 105 mg/dLBON [facility] HEALTHInterpretation and review of laboratory results AbnormalBON [facility] HEALTHGlucose [Mass/Vol]128 mg/vHKaql09 - 105 mg/dLBON [facility] HEALTHInterpretation and review of laboratory resultsAbnormalINOVA [facility]LEX[facility] Glucose [Mass/Vol]106 mg/vDKsht39 - 105 mg/dLBON [facility] HEALTH Interpretation and review of laboratory resultsAbnormChildren's Hospital of [facility] HEALTHGlucose [Mass/Vol]109 mg/vWKsey73 - 105 mg/dLBON [facility] HEALTHInterpretation and review of laboratory resultsAbnormalBON [facility] HEALTHGlucose [Mass/Vol]39 mg/dLCritically low65 - 105 mg/dLBON [facility] HEALTHInterpretation and review of laboratory resultsAbnormalHENRICO [facility] HEALTHGlucose [Mass/Vol]43 mg/dLLow65 - 105 mg/dLBON [facility] HEALTHGlucose [Mass/Vol]116 mg/pSAlrm61 - 105 mg/dLBON [facility]IST HOSPITALArterial Blood Gas, POCon 61-76-7883NMK526.0BON [facility]IST HOSPITALHCO3 (Bld) [Moles/Vol]26.0 mmol/L21.0 - 28.0 mmol/LBON [facility] METHODIST HOSPITALO2 Device/Flow/%Adult VentilatorHEALTHSOUTH MEDICAL CENTEROxygen saturation in Blood99 %High94.0 - 98.0 %[facility] qUM115.7BON [facility] CENTERC pH7.435BON [facility] HA2811.3HighBON [facility] HOSPITALPositive Base Excess, [id number] [facility] HEALTHSample SiteArterial LineBON SECOURS DOCTORS HOSPITALY [facility] HOSPITALBasic Metabolic Panel w/ Reflex to MGon 29-22-1613Rppsj gap [Moles/Vol]11 mmol/L9 - 17 mmol/LBON [facility] HEALTHCalcium [Mass/Vol]8.5 mg/dLLow8.6 - 10.4 mg/dLBON [facility] HEALTHChloride [Moles/Vol]109 mmol/LHigh98 - 107 mmol/LBON [facility]OS[facility]Y HEALTH CO2 [Moles/Vol]23 mmol/L20 - 31 mmol/LBON [facility] HEALTHCreatinine [Mass/Vol]0.53 mg/dL0.50 - 0.90 mg/dLBON SECOURS DOCTORS HOSPITALY HEALTHGFR >60>60 mL/minBON SECOURS DOCTORS HOSPITALY HEALTHGFR Non->60>60 mL/minBON [facility] HEALTHGFR/1.73 sq M.predicted MDRD (S/P/Bld) [Vol rate/Area][facility]ITALY HEALTHGlucose [Mass/Vol]121 mg/zTInfe61 - 99 mg/dL [facility] SECOURS DOCTORS [facility]OS[facility]ITALY HEALTHInterpretation and review of laboratory resultsAbnormal [facility] HEALTHPotassium [Moles/Vol]3.5 mmol/LLow3.7 - 5.3 mmol/LBON [facility] HEALTHSodium [Moles/Vol]143 mmol/L135 - 144 mmol/LBON [facility] DOCTORS HOSPITALY HEALTHUrea nitrogen (BldV) [Mass/Vol]14 mg/dL6 - 20 mg/dLBON SECOURS DOCTORS HOSPITALY [facility] HOSPITALBON SECOURS DOCTORS HOSPITALY [facility] HOSPITALCBC with Auto Differentialon 38-90-0030Qkqcjwuo Eos #0.25BON [facility] HEALTHAbsolute Immature Granulocyte0.05B[facility] HEALTHAbsolute Lymph #1.83B[facility] HEALTHAbsolute [place] #0.57BON [facility]ERSON HOSPITALBasophils (Bld) [#/Vol]10*3/uLBON SEC[facility]CTORS [facility]OS[facility]ITALY HEALTH Basophils/100 WBC (Bld)0 %0 - 2 %[facility] HEALTHEosinophils/100 WBC (Bld)3 %1 - 4 %BON [facility] HOSPITALY HEALTHHematocrit (Bld) [Volume fraction]24.2 % Low36.3 - 47.1 %BON [facility] HEALTHHemoglobin (Bld) [Mass/Vol]7.7 g/dLLow 11.9 - 15.1 g/dLBON SECSUBURBAN COMMUNITY HOSPITAL & BRENTWOOD HOSPITALImmature granulocytes/100 WBC (Bld)1 % Gapk9EXTWYTHE COUNTY COMMUNITY [facility] HEALTHInterpretation and review of laboratory results AbnormalBON SECSUBURBAN COMMUNITY HOSPITAL & BRENTWOOD HOSPITALLymphocytes/100 WBC (Bld)19 %Low24 - 43 %BON [facility] (RBC) [Entitic mass]31.2 pg25.2 - 33.5 pgBON SECOHIOHEALTH SHELBY HOSPITALHC (RBC) [Mass/Vol]31.8 g/dL28.4 - 34.8 g/dLBON SECOHIOHEALTH SHELBY HOSPITALV (RBC) [Entitic vol]98.0 fL82.6 - 102.9 fLHEALTHSOUTH MEDICAL CENTER Monocytes/100 WBC (Bld)6 %3 - 12 %[facility] MEDICAL CENTERNRBC Automated0.00.0 per 100 WBCBON [facility] HEALTHPlatelet distribution width (Bld) [Ratio]18.3 %High11.8 - 14.4 %BON [facility] HEALTHPlatelet mean volume (Bld) [Entitic vol]8.6 fL8.1 - 13.5 fLSIERRA VISTA REGIONAL [facility]ALTH CENTER SECRIVERSIDE MEDICAL CENTER HEALTHPlatelets (Bld) [#/Vol]458 10*3/uLHighBON SECRIVERSIDE MEDICAL [facility]ENTER HEALTHRBC (Bld) [#/Vol]2.47 10*6/uLLow3.95 - 5.11 m/uLBON [facility]CRIV[facility] HEALTHRBC (Bld) [#/Vol]ANISOCYTOSIS PRESENTBON [facility] HOSPITALSeg Cerfjbpiurp99 %High36 - 65 %BON [facility] HEALTHSegs Absolute6.77BON [facility] HEALTHWBC (Bld) [#/Vol]9.5 10*3/uLBON [facility]RS [facility] SECRIVERSIDE MEDICAL CENTER HEALTHMagnesiumon 12-31-1546Diewgxrcn [Mass/Vol] 1.8 mg/dL1.6 - 2.6 mg/dLBON SECCLINT[facility]ITAL SECRIVERSIDE MED[facility]ENTER HEALTHNo Panel Informationon 28-67-3558Yutbzxcuvhnyfh and review of laboratory resultsAbnormal [facility] Glucose Fingerstickon 88-78-2742Dlqorkk [Mass/Vol]130 mg/dYOfkw57 - 105 mg/dLBON [facility] Interpretation and review of laboratory resultsAbnormalHEALTHSOUTH MEDICAL [facility]ENTER BON [facility] HOSPITALGlucose [Mass/Vol]139 mg/uMHnpl12 - 105 mg/dLBON [facility] HOSPITALInterpretation and review of laboratory resultsAbnormalINOVA ALEXANDRIA HOSPITALGlucose [Mass/Vol]126 mg/zQMvil64 - 105 mg/dLBON [facility] HOSPITALInterpretation and review of laboratory results AbnormalBON [facility] - AVERAGlucose [Mass/Vol]151 mg/jREfre08 - 105 mg/dLBON [facility] HOSPITALInterpretation and review of laboratory resultsAbnormHealthSouth Medical CenterPOCT Glucoseon 72-08-2075Fmacuog [Mass/Vol]112 mg/nFAqse42 - 100 mg/dLBON [facility] HOSPITALBasic Metabolic Panel w/ Reflex to MGon 37-69-1684Dfrfs gap [Moles/Vol]11 mmol/L9 - 17 mmol/LBON [facility] HOSPITALCalcium [Mass/Vol]8.1 mg/dLLow8.6 - 10.4 mg/dLBON [facility] HOSPITALChloride [Moles/Vol]108 mmol/L High98 - 107 mmol/LBON [facility] HOSPITALCO2 [Moles/Vol]22 mmol/L20 - 31 mmol/LBON [facility]ITALCreatinine [Mass/Vol]0.57 mg/dL0.50 - 0.90 mg/dL [facility]GFR >60>60 mL/minHEALTHSOUTH MEDICAL CENTERGFR Non->60>60 mL/minHEALTHSOUTH MEDICAL CENTERGFR/1.73 sq M.predicted MDRD (S/P/Bld) [Vol rate/Area][facility]ITALGlucose [Mass/Vol]195 mg/qEEhdq03 - 99 mg/dLBON [facility]PITALInterpretation and review of laboratory resultsAbnormalBON [facility]ITALPotassium [Moles/Vol]3.5 mmol/LLow3.7 - 5.3 mmol/LBON [facility]ALSodium [Moles/Vol]141 mmol/L135 - 144 mmol/LBON [facility]ENT[facility] HOSPITALUrea nitrogen (BldV) [Mass/Vol]17 mg/dL6 - 20 mg/dLBON [facility] HOSPITALBON [facility]ITALCBC with Auto Differentialon [id number] Eos #0.24B[facility] HOSPITALAbsolute Immature Granulocyte0.07B[facility] HOSPITALAbsolute Lymph # 1.77B[facility] HOSPITALAbsolute [place] #0.72B[facility] & BRENT[facility]OD HOSPITALBasophils (Bld) [#/Vol]10*3/uLBON [facility]ITALBasophils/100 WBC (Bld)0 %0 - 2 % [facility] CENTEREosinophils/100 WBC (Bld)2 %1 - 4 %[facility] CENTERHematocrit (Bld) [Volume fraction]23.7 %Low36.3 - 47.1 %[facility] CENTERHemoglobin (Bld) [Mass/Vol]8.0 g/dLLow11.9 - 15.1 g/dLBON [facility]ITALImmature granulocytes/100 WBC (Bld)1 %Xgyl4YUKHEALTHSOUTH MEDICAL CENTER Interpretation and review of laboratory resultsAbnormalHEALTHSOUTH MEDICAL CENTER Lymphocytes/100 WBC (Bld)17 %Low24 - 43 %[facility] (RBC) [Entitic mass]32.3 pg25.2 - 33.5 pgBON SECOHIO[facility] HOSPITALHC (RBC) [Mass/Vol] 33.8 g/dL28.4 - 34.8 g/dLBON SECOHIOHE[facility] SHELBY HOSPITALV (RBC) [Entitic vol]95.6 fL 82.6 - 102.9 fLBON [facility]ITALMonocytes/100 WBC (Bld)7 %3 - 12 %[facility] CENTERNRBC Automated0.00.0 per 100 WBCHEALTHSOUTH MEDICAL CENTER Platelet distribution width (Bld) [Ratio]18.4 %High11.8 - 14.4 %[facility]Y HEALTHPlatelet mean volume (Bld) [Entitic vol]8.7 fL8.1 - 13.5 fLBON [facility]ORS [facility]ITALY HEALTHPlatelets (Bld) [#/Vol]429 10*3/uLBON [facility]ALTH RBC (Bld) [#/Vol]2.48 10*6/uLLow3.95 - 5.11 m/uLBON [facility] HEALTHRBC (Bld) [#/Vol]ANISOCYTOSIS PRESENTBON SECOU[facility]ORS [facility]OSPITALY HEALTHSeg Dwxyqzrwpyh64 %High 36 - 65 %[facility] HEALTHSegs Absolute7.64[facility]ICAL CENTER HEALTHWBC (Bld) [#/Vol]10.5 10*3/uLBON [facility] HEALTHLipase on 93-01-1322Uievar [Catalytic activity/Vol]16 U/L13 - 60 U/LBON [facility] HEALTHMagnesiumon 31-90-9892Jweqeuftt [Mass/Vol]1.9 mg/dL1.6 - 2.6 mg/dLBON [facility] Glucose Fingerstickon 96-11-8481Xcbvpcj [Mass/Vol]170 mg/pVLlgg17 - 105 mg/dLBON [facility] HEALTHInterpretation and review of laboratory resultsAbnormalBON [facility] HEALTHGlucose [Mass/Vol]118 mg/lTHdmd78 - 105 mg/dLBON [facility]Y HEALTHInterpretation and review of laboratory results AbnormalBON [facility]CRIV[facility] HEALTHGlucose [Mass/Vol]226 mg/vNMnki42 - 105 mg/dLBON [facility]Y HEALTHInterpretation and review of laboratory resultsAbnormalSIERRA [facility]IST[facility] Glucose [Mass/Vol]192 mg/hJSqwp17 - 105 mg/dLBON [facility] HEALTH Interpretation and review of laboratory resultsAbnormalWYTHE COUNTY [facility] HEALTH BON [facility] HEALTHArterial Blood Gas, POCon 74-53-3585Tstws TestNOT APPLICABLEBON SEC[facility]OSPITALY BCKQLVOFF368.0BON [facility] HEALTHHCO3 (Bld) [Moles/Vol]24.5 mmol/L21.0 - 28.0 mmol/LBON [facility]OS[facility]ITALModePRVCBON [facility] HOSPITALO2 Device/Flow/%Adult VentilatorHEALTHSOUTH MEDICAL CENTER Oxygen saturation in Blood99 %High94.0 - 98.0 %[facility]ALTH[facility] CENTERPOC pCO2 31.7LowBON [facility]ENTERC pH7.497HighBON [facility] PO2 116.0HighHEALTHSOUTH MEDICAL CENTERPositive Base Excess, [id number] [facility]OSPITALSample SiteArterial LineBON [facility] HOSPITALBasic Metabolic Panel w/ Reflex to MGon 03-10-0063Jjgyw gap [Moles/Vol]10 mmol/L9 - 17 mmol/LBON [facility] HOSPITALCalcium [Mass/Vol]8.3 mg/dLLow8.6 - 10.4 mg/dLBON [facility] HOSPITALChloride [Moles/Vol]107 mmol/L98 - 107 mmol/LBON [facility] HOSPITALCO2 [Moles/Vol]22 mmol/L20 - 31 mmol/LBON [facility] HOSPITALCreatinine [Mass/Vol] 0.6 mg/dL0.50 - 0.90 mg/dLBON [facility] HOSPITALGFR >60>60 mL/minHEALTHSOUTH MEDICAL CENTERGFR Non->60>60 mL/minHEALTHSOUTH MEDICAL CENTERGFR/1.73 sq M.predicted MDRD (S/P/Bld) [Vol rate/Area]BON [facility] HOSPITALGlucose [Mass/Vol]210 mg/mZTnja34 - 99 mg/dLBON [facility] Interpretation and review of laboratory resultsAbnormalBON [facility] Potassium [Moles/Vol]3.6 mmol/LLow3.7 - 5.3 mmol/LBON [facility] HOSPITALSodium [Moles/Vol]139 mmol/L135 - 144 mmol/LBON [facility]IST HOSPITALUrea nitrogen (BldV) [Mass/Vol]15 mg/dL6 - 20 mg/dLBON [facility] - AVERACBC with Auto Differentialon 06-50-8551Xssxlbou Eos #0.19BON [facility] HOSPITALAbsolute Immature Granulocyte0.11BON [facility] HOSPITALAbsolute Lymph # 1.74BON [facility] HOSPITALAbsolute [place] #0.92BON SECSUBURB[facility] BRENTWOOD HOSPITALBasophils (Bld) [#/Vol]0.03 10*3/uLBON SECSUBURB[facility] & BRENTWOOD HOSPITALBasophils/100 WBC (Bld)0 %0 - 2 %[facility] MEDICAL CENTEREosinophils/100 WBC (Bld)2 %1 - 4 %[facility]ALTH[facility] MEDICAL CENTERHematocrit (Bld) [Volume fraction]24.8 %Low36.3 - 47.1 %[facility] MEDICAL CENTERHemoglobin (Bld) [Mass/Vol]8.3 g/dLLow11.9 - 15.1 g/dLBON [facility] HOSPITALImmature granulocytes/100 WBC (Bld)1 %Brzb5ZZM [facility] Interpretation and review of laboratory resultsAbnormalBON [facility] Lymphocytes/100 WBC (Bld)15 %Low24 - 43 %[facility]ENTERH (RBC) [Entitic mass]31.6 pg25.2 - 33.5 pgBON [facility] CINCINNATIHC (RBC) [Mass/Vol] 33.5 g/dL28.4 - 34.8 g/dLBON [facility] (RBC) [Entitic vol]94.3 fL 82.6 - 102.9 fLHEALTHSOUTH MEDICAL CENTERMonocytes/100 WBC (Bld)8 %3 - 12 %[facility]ALTH[facility] MEDICAL CENTERNRBC Automated0.00.0 per 100 WBCHEALTHSOUTH MEDICAL CENTER Platelet distribution width (Bld) [Ratio]18.5 %High11.8 - 14.4 %HEALTH[facility] MEDICAL CENTERPlatelet mean volume (Bld) [Entitic vol]8.8 fL8.1 - 13.5 fLHEALTHSOUTH MEDICAL CENTERPlatelets (Bld) [#/Vol]429 10*3/uLBON [facility] RBC (Bld) [#/Vol]2.63 10*6/uLLow3.95 - 5.11 m/uLBON [facility] METHODIST HOSPITALRBC (Bld) [#/Vol]ANISOCYTOSIS PRESENTBON [facility]IST HOSPITALSeg Zsxwddepluv15 %High 36 - 65 %BON [facility] HOSPITALSegs Absolute8.94[facility] WBC (Bld) [#/Vol]11.9 10*3/uLHighBON [facility] HEALTHNo Panel Informationon 00-48-8155Gdvzmcfuaixxlf and review of laboratory resultsAbnormalCH[facility] Glucose Fingerstickon 65-03-1858Cpnhgdx [Mass/Vol]302 mg/cDLlhj13 - 105 mg/dLBON [facility] HEALTHInterpretation and review of laboratory resultsAbnormalHENRICO [facility] HEALTHGlucose [Mass/Vol]246 mg/aQFchy83 - 105 mg/dLBON [facility] HEALTHInterpretation and review of laboratory results AbnormalBON [facility] - AVERAGlucose [Mass/Vol]196 mg/mJJyzs88 - 105 mg/dLBON [facility] HEALTHInterpretation and review of laboratory resultsAbnormHealthSouth Medical Center Glucose [Mass/Vol]222 mg/jTWzcp21 - 105 mg/dLBON [facility] HEALTH Interpretation and review of laboratory resultsAbnormRiverside Walter Reed HospitalGlucose [Mass/Vol]216 mg/yQIdzw55 - 105 mg/dLBON [facility] HEALTHInterpretation and review of laboratory resultsAbnormHealthSouth Medical CenterPOCT Glucoseon 42-16-2794Kuayzfa [Mass/Vol] 218 mg/gTNzkh68 - 100 mg/dLBON [facility] HOSPITALArterial Blood Gas, POCon 55-18-9644Xbogc TestNOT APPLICABLEWYTHE COUNTY [facility] [id number] [facility]IST HOSPITALHCO3 (Bld) [Moles/Vol]24.2 mmol/L21.0 - 28.0 mmol/LBON [facility] HEALTHModePRVCBON [facility] HEALTHO2 Device/Flow/%Adult VentilatorHEALTHSOUTH MEDICAL CENTEROxygen saturation in Blood99 %High94.0 - 98.0 %[facility]OSPITALC eCK712.7BON SECTRIHE[facility]OSPITALC pH7.439BON [facility] CENTERC UR6453.9HighBON [facility] HOSPITALPositive Base Excess, [id number] [facility]OSPITALSample SiteArterial LineHEALTHSOUTH MEDICAL CENTERBasic Metabolic Panel w/ Reflex to MGon 44-13-3414Ezfzx gap [Moles/Vol]9 mmol/L9 - 17 mmol/LBON [facility] HOSPITALCalcium [Mass/Vol]8.0 mg/dLLow8.6 - 10.4 mg/dLBON [facility] HOSPITALChloride [Moles/Vol]106 mmol/L98 - 107 mmol/LBON [facility] HOSPITALCO2 [Moles/Vol]22 mmol/L20 - 31 mmol/LBON [facility] Creatinine [Mass/Vol]0.67 mg/dL0.50 - 0.90 mg/dLBON [facility] HOSPITALGFR >60>60 mL/minHEALTHSOUTH MEDICAL CENTERGFR Non->60 >60 mL/minHEALTHSOUTH MEDICAL CENTERGFR/1.73 sq M.predicted MDRD (S/P/Bld) [Vol rate/Area][facility] MEDICAL CENTERGlucose [Mass/Vol]247 mg/cHCitz27 - 99 mg/dL [facility] CENTERInterpretation and review of laboratory resultsAbnormal BON [facility] HOSPITALPotassium [Moles/Vol]3.3 mmol/LLow3.7 - 5.3 mmol/LBON [facility] HOSPITALSodium [Moles/Vol]137 mmol/L135 - 144 mmol/LBON [facility] HOSPITALUrea nitrogen (BldV) [Mass/Vol]15 mg/dL6 - 20 mg/dLBON [facility] - AVERACBC with Auto Differentialon 85-96-8779Qejksuom Eos #0.15BON SECPROVID[facility] JO[facility] HOSPITALY [facility]OS[facility]ITALAbsolute Immature Granulocyte0.26BON [facility] HOSPITALAbsolute Lymph #1.97B[facility]Y [facility]OS[facility]ITALAbsolute [place] #0.99BON SECSUBURBAN [facility] & BRENTWOOD HOSPITALBasophils (Bld) [#/Vol]0.04 10*3/uLBON [facility] Basophils/100 WBC (Bld)0 %0 - 2 %[facility] SECSUBURBAN COMMUNITY HOSPITAL & BRENTWOOD HOSPITALEosinophils/100 WBC (Bld)1 %1 - 4 %[facility] SECSUBURBAN COMMUNITY HOSPITAL & BRENTWOOD HOSPITALHematocrit (Bld) [Volume fraction]23.5 % Low36.3 - 47.1 %[facility] MEDICAL CENTERHemoglobin (Bld) [Mass/Vol]8.0 g/dLLow 11.9 - 15.1 g/dLBON SECSUBURBAN [facility] & BRENTWOOD HOSPITALImmature granulocytes/100 WBC (Bld)2 % Zyxj0JLNWYTHE COUNTY [facility] HEALTHInterpretation and review of laboratory results AbnormalBON [facility] HOSPITALLymphocytes/100 WBC (Bld)16 %Low24 - 43 %[facility] CENTERH (RBC) [Entitic mass]32.0 pg25.2 - 33.5 pgBON [facility] CINCINNATIHC (RBC) [Mass/Vol]34.0 g/dL28.4 - 34.8 g/dLBON SECOHIOHEALTH SHELBY HOSPITALV (RBC) [Entitic vol]94.0 fL82.6 - 102.9 fLHEALTHSOUTH MEDICAL CENTER Monocytes/100 WBC (Bld)8 %3 - 12 %HEALTHS[facility] MEDICAL CENTERNRBC Automated0.00.0 per 100 WBCHEALTHSOUTH MEDICAL CENTERPlatelet distribution width (Bld) [Ratio]18.5 %High11.8 - 14.4 %[facility] HEALTHPlatelet mean volume (Bld) [Entitic vol]8.4 fL8.1 - 13.5 fLSIERRA VISTA [facility]ENTER SECRIVERSIDE MEDICAL CENTER HEALTHPlatelets (Bld) [#/Vol]398 10*3/uLBON [facility] HEALTHRBC (Bld) [#/Vol]2.50 10*6/uLLow3.95 - 5.11 m/uL [facility] SECRIVERSIDE MEDICAL CENTER HEALTHRBC (Bld) [#/Vol]ANISOCYTOSIS PRESENTHEALTHSOUTH MEDICAL CENTERSeg Cpznvizomwp63 %High36 - 65 %[facility] HEALTHSegs Absolute8.88 HighSIERRA VISTA [facility]ENTER SECRIVERSIDE MEDICAL CENTER HEALTHWBC (Bld) [#/Vol]12.3 10*3/uLHighBON [facility] HEALTHBON SECRIVERSIDE [facility] HEALTHMagnesiumon 46-77-4319Gslnrmkvh [Mass/Vol]1.7 mg/dL1.6 - 2.6 mg/dLBON [facility] - AVERANo Panel Informationon 71-47-9637Hdwzxniypddojw and review of laboratory resultsAbnormal BON [facility] Glucose Fingerstickon 15-24-6513Dosedzl [Mass/Vol]194 mg/dWBhvf92 - 105 mg/dLBON [facility] Interpretation and review of laboratory resultsAbnormRiverside Walter Reed HospitalGlucose [Mass/Vol]112 mg/iIZuat34 - 105 mg/dLBON [facility] HOSPITALInterpretation and review of laboratory resultsAbnormalINOVA ALEXANDRIA HOSPITALGlucose [Mass/Vol]172 mg/pFXegy66 - 105 mg/dLBON [facility] HOSPITALInterpretation and review of laboratory results AbnormalINOVA ALEXANDRIA HOSPITALGlucose [Mass/Vol]251 mg/sVLctx54 - 105 mg/dLBON [facility] HOSPITALInterpretation and review of laboratory resultsAbnormHealthSouth Medical Center Glucose [Mass/Vol]240 mg/cIDraa17 - 105 mg/dLBON [facility] Interpretation and review of laboratory resultsAbnormRiverside Walter Reed HospitalPOCT Glucoseon 96-16-4481Adunwui [Mass/Vol]286 mg/dLHigh 74 - 100 mg/dLBON [facility] HOSPITALBasic Metabolic Panel w/ Reflex to MGon 20-39-0573Uqpmb gap [Moles/Vol]13 mmol/L9 - 17 mmol/LBON [facility] Calcium [Mass/Vol]7.9 mg/dLLow8.6 - 10.4 mg/dLBON [facility] HOSPITALChloride [Moles/Vol]105 mmol/L98 - 107 mmol/LBON [facility] HOSPITALCO2 [Moles/Vol]20 mmol/L20 - 31 mmol/LBON [facility] HOSPITALCreatinine [Mass/Vol]0.72 mg/dL0.50 - 0.90 mg/dLBON [facility] HOSPITALGFR >60>60 mL/minBON [facility] HEALTHGFR Non->60>60 mL/minHEALTHSOUTH MEDICAL CENTER GFR/1.73 sq M.predicted MDRD (S/P/Bld) [Vol rate/Area][facility] Glucose [Mass/Vol]212 mg/jBPvky10 - 99 mg/dLBON [facility] Interpretation and review of laboratory resultsAbnormalHEALTHSOUTH MEDICAL CENTER Potassium [Moles/Vol]3.2 mmol/LLow3.7 - 5.3 mmol/LBON [facility] HOSPITALSodium [Moles/Vol]138 mmol/L135 - 144 mmol/LBON [facility] HOSPITALUrea nitrogen (BldV) [Mass/Vol]15 mg/dL6 - 20 mg/dLBON [facility] - AVERACBC with Auto Differentialon 89-54-5258Xqecdvhu Eos #0.14BON [facility] HOSPITALAbsolute Immature Granulocyte0.56HighHEALTHSOUTH MEDICAL CENTERAbsolute Lymph #2.66BON [facility] HOSPITALAbsolute [place] #0.70[facility] Basophils (Bld) [#/Vol]0.00 10*3/uLBON [facility] HOSPITALBasophils/100 WBC (Bld)0 %0 - 2 %[facility] MED[facility] CENTEREosinophils/100 WBC (Bld)1 %1 - 4 %[facility]ALTH[facility] MEDICAL CENTERHematocrit (Bld) [Volume fraction]27.1 %Low36.3 - 47.1 %[facility] MEDICAL CENTERHemoglobin (Bld) [Mass/Vol]9.1 g/dLLow11.9 - 15.1 g/dLBON [facility]OSPITALImmature granulocytes/100 WBC (Bld)4 %Xowc8WLKHEALTHSOUTH MEDICAL CENTERInterpretation and review of laboratory resultsAbnormalHEALTHSOUTH MEDICAL CENTERLymphocytes/100 WBC (Bld)19 %Low24 - 44 %[facility]ENTERH (RBC) [Entitic mass]31.7 pg25.2 - 33.5 pgCHESAPEAKE REGIONAL MEDICAL CENTERHC (RBC) [Mass/Vol]33.6 g/dL28.4 - 34.8 g/dLBON [facility] MERCY HEALTHMCV (RBC) [Entitic vol]94.4 fL82.6 - 102.9 fLHEALTHSOUTH MEDICAL CENTERMonocytes/100 WBC (Bld)5 %1 - 7 %[facility] MEDICAL CENTERMorphology Malachi (Bld) [Interp]ANISOCYTOSIS PRESENTBON [facility]IST HOSPITALNRBC Automated0.00.0 per 100 WBCHEALTHSOUTH MEDICAL CENTER Platelet distribution width (Bld) [Ratio]18.8 %High11.8 - 14.4 %[facility] MEDICAL CENTERPlatelet mean volume (Bld) [Entitic vol]8.7 fL8.1 - 13.5 fLHEALTHSOUTH MEDICAL CENTERPlatelets (Bld) [#/Vol]490 10*3/uLHighHEALTHSOUTH MEDICAL CENTERRBC (Bld) [#/Vol]2.87 10*6/uLLow3.95 - 5.11 m/uLHEALTHSOUTH MEDICAL CENTER Seg Solgndpvhry84 %High36 - 66 %BON [facility] HOSPITALSegs Absolute9.94HighHEALTHSOUTH MEDICAL CENTERWBC (Bld) [#/Vol]14.0 10*3/uLMountain States Health Alliance BON [facility] HOSPITALMagnesiumon 16-93-7143Ugoewjfpv [Mass/Vol]1.7 mg/dL1.6 - 2.6 mg/dLBON [facility] - AVERAPOC Glucose Fingerstickon 30-07-8497Qmwwdor [Mass/Vol]124 mg/nAUsgl93 - 105 mg/dLBON [facility] HOSPITALInterpretation and review of laboratory resultsAbnormalINOVA ALEXANDRIA HOSPITALGlucose [Mass/Vol]201 mg/kCJccd43 - 105 mg/dLBON [facility] HOSPITALInterpretation and review of laboratory results AbnormalBON [facility] - AVERAGlucose [Mass/Vol]264 mg/iJBfyv52 - 105 mg/dLBON [facility] HOSPITALInterpretation and review of laboratory resultsAbnormalINOVA ALEXANDRIA [facility]OS[facility]ITAL Glucose [Mass/Vol]184 mg/qRNtlh17 - 105 mg/dLBON [facility] Interpretation and review of laboratory resultsAbnormalHEALTHSOUTH MEDICAL CENTER BON [facility] HOSPITALGlucose [Mass/Vol]241 mg/xTSetr04 - 105 mg/dLBON [facility] HOSPITALInterpretation and review of laboratory resultsAbnormalINOVA ALEXANDRIA HOSPITALTriglycerideon 11-24-0222Aphgzmnbbgvdtf and review of laboratory resultsAbnormalHEALTHSOUTH MEDICAL CENTERTriglyceride [Mass/Vol]164 mg/dLHigh<150INOVA ALEXANDRIA HOSPITALBasic Metabolic Panel w/ Reflex to MGon 36-40-1791Dlcsd gap [Moles/Vol]14 mmol/L9 - 17 mmol/LBON [facility] HOSPITALCalcium [Mass/Vol]8.0 mg/dLLow8.6 - 10.4 mg/dL [facility] CENTERChloride [Moles/Vol]106 mmol/L98 - 107 mmol/LBON [facility] HOSPITALCO2 [Moles/Vol]20 mmol/L20 - 31 mmol/LBON [facility] Creatinine [Mass/Vol]0.78 mg/dL0.50 - 0.90 mg/dLBON [facility] HOSPITALGFR >60>60 mL/minHEALTHSOUTH MEDICAL CENTERGFR Non->60 >60 mL/minHEALTHSOUTH MEDICAL CENTERGFR/1.73 sq M.predicted MDRD (S/P/Bld) [Vol rate/Area][facility]ICAL CENTERGlucose [Mass/Vol]209 mg/jDLiyl93 - 99 mg/dL [facility] CENTERInterpretation and review of laboratory resultsAbnormal [facility] CENTERPotassium [Moles/Vol]3.3 mmol/LLow3.7 - 5.3 mmol/LBON [facility] HOSPITALSodium [Moles/Vol]140 mmol/L135 - 144 mmol/LBON [facility] HOSPITALUrea nitrogen (BldV) [Mass/Vol]14 mg/dL6 - 20 mg/dLBON [facility] - AVERACBC with Auto Differentialon 14-73-5438Bzutcits Eos #0.28[facility]ICAL CENTERAbsolute Immature Granulocyte0.98HighBON [facility] HEALTHAbsolute Lymph #2.94B[facility]ITALY HEALTHAbsolute [place] # 0.98HighBON [facility] HEALTHBasophils (Bld) [#/Vol]0.00 10*3/uLBON [facility] HEALTHBasophils/100 WBC (Bld)0 %0 - 2 %[facility] Eosinophils/100 WBC (Bld)2 %1 - 4 %BON SECSUBURBAN [facility] & BRENTWOOD HOSPITALHematocrit (Bld) [Volume fraction]27.4 %Low36.3 - 47.1 %BON SECSUBURB[facility] BRENT[facility]OD HOSPITALHemoglobin (Bld) [Mass/Vol]9.5 g/dLLow11.9 - 15.1 g/dLBON SECSUBURBAN [facility] & BRENTWOOD HOSPITALImmature granulocytes/100 WBC (Bld)7 %Dwin6NJVWYTHE COUNTY [facility] HEALTHInterpretation and review of laboratory resultsAbnormalBON [facility] URBANA HOSPITALLymphocytes/100 WBC (Bld)21 %Low24 - 44 %[facility] (RBC) [Entitic mass]31.8 pg25.2 - 33.[address] [facility]OSPITALHC (RBC) [Mass/Vol]34.7 g/dL28.4 - 34.8 g/dL [facility] (RBC) [Entitic vol]91.6 fL82.6 - 102.9 fLSIERRA VISTA [facility] SECSUBURBAN [facility] & BRENTWOOD HOSPITALMonocytes/100 WBC (Bld)7 %1 - 7 %[facility] SECSUBURBAN COMMUNITY [facility]OS[facility]ITAL & BRENTWOOD HOSPITALMorphology Malachi (Bld) [Interp]ANISOCYTOSIS PRESENTBON [facility] HOSPITALNRBC Automated0.0 0.0 per 100 WBCBON [facility] HEALTHPlatelet distribution width (Bld) [Ratio] 18.4 %High11.8 - 14.4 %[facility]ITALY HEALTHPlatelet mean volume (Bld) [Entitic vol]8.7 fL8.1 - 13.5 fLBON [facility] HEALTHPlatelets (Bld) [#/Vol] 502 10*3/uLHighBON [facility] HEALTHRBC (Bld) [#/Vol]2.99 10*6/uLLow3.95 - 5.11 m/uLBON SECOURS MER[facility]ALTH URBANA HOSPITALSeg Ksdjwvophqd67 %36 - 66 %BON [facility] HOSPITALSegs Absolute8.82HighBON [facility]IST HOSPITALWBC (Bld) [#/Vol]14.0 10*3/uL HighBON [facility] - AVERAHemoglobin and Hematocriton 71-89-9912Ebejdbikek (Bld) [Volume fraction]27.4 %Low36.3 - 47.1 %[facility] MEDICAL CENTERHemoglobin (Bld) [Mass/Vol]9.2 g/dLLow11.9 - 15.1 g/dLBON [facility] HOSPITALInterpretation and review of laboratory resultsAbnormHealthSouth Medical CenterMagnesiumon 57-63-2588Pkuvyozdk [Mass/Vol] 1.6 mg/dL1.6 - 2.6 mg/dLBON [facility] - AVERAPOC Glucose Fingerstickon 62-52-1231Jxgqzfq [Mass/Vol]134 mg/pJNbae95 - 105 mg/dLBON [facility] HEALTHInterpretation and review of laboratory resultsAbnormalINOVA ALEXANDRIA HOSPITALGlucose [Mass/Vol]230 mg/aYYvnc06 - 105 mg/dLBON [facility] HEALTHInterpretation and review of laboratory results AbnormalBON [facility] - AVERAGlucose [Mass/Vol]214 mg/uNRtby16 - 105 mg/dLBON [facility] HEALTHInterpretation and review of laboratory resultsAbnormalINOVA [facility]LEX[facility] Glucose [Mass/Vol]197 mg/iAYgzf56 - 105 mg/dLBON [facility] HEALTH Interpretation and review of laboratory resultsAbnormRiverside Walter Reed HospitalGlucose [Mass/Vol]164 mg/hLSolt46 - 105 mg/dLBON [facility] HEALTHInterpretation and review of laboratory resultsAbnormHealthSouth Medical CenterArterial Blood Gas, POCon 79-89-1765Maesp TestNOT APPLICABLEHEALTHSOUTH MEDICAL CENTERFIO230.0BON [facility] HOSPITALHCO3 (Bld) [Moles/Vol]24.4 mmol/L21.0 - 28.0 mmol/LBON [facility] Interpretation and review of laboratory resultsAbnormalBON [facility] ModePRVCBON [facility] HOSPITALO2 Device/Flow/%Adult VentilatorHEALTHSOUTH MEDICAL CENTEROxygen saturation in Blood98 %94.0 - 98.0 %[facility] POC wQT324.3LowBON [facility] HOSPITALPOC pH7.473HighHEALTHSOUTH MEDICAL CENTER POC IH8896.7BON [facility] HOSPITALPositive Base Excess, [id number] [facility] HOSPITALSample SiteArterial LineINOVA ALEXANDRIA HOSPITAL Basic Metabolic Panel w/ Reflex to MGon [id number] gap [Moles/Vol]10 mmol/L 9 - 17 mmol/LBON [facility] HOS[facility]ITALCalcium [Mass/Vol]8.0 mg/dLLow8.6 - 10.4 mg/dLBON [facility] HOSPITALChloride [Moles/Vol]105 mmol/L98 - 107 mmol/LBON [facility] HOSPITALCO2 [Moles/Vol]22 mmol/L20 - 31 mmol/LBON [facility]ITALCreatinine [Mass/Vol]0.7 mg/dL0.50 - 0.90 mg/dLBON [facility]ITALGFR >60>60 mL/minHEALTHSOUTH MEDICAL CENTERGFR Non- >60>60 mL/minHEALTHSOUTH MEDICAL CENTERGFR/1.73 sq M.predicted MDRD (S/P/Bld) [Vol rate/Area][facility]ENTERGlucose [Mass/Vol]276 mg/cPXoqc87 - 99 mg/dL [facility]ENTERInterpretation and review of laboratory resultsAbnormal BON [facility]OS[facility]ITALPotassium [Moles/Vol]3.8 mmol/L3.7 - 5.3 mmol/LBON [facility] HOSPITALSodium [Moles/Vol]137 mmol/L135 - 144 mmol/LBON [facility] HOSPITALUrea nitrogen (BldV) [Mass/Vol]14 mg/dL6 - 20 mg/dLBON [facility] - AVERACBC with Auto Differentialon [id number] Eos #0.00BON [facility]PITALAbsolute Immature Granulocyte0.71HighBON [facility] HEALTHAbsolute Lymph #3.69[facility] HEALTHAbsolute [place] # 0.57[facility] HEALTHBasophils (Bld) [#/Vol]0.00 10*3/uLBON [facility] HEALTHBasophils/100 WBC (Bld)0 %0 - 2 %BON [facility] HOSPITALEosinophils/100 WBC (Bld)0 %Low1 - 4 %BON [facility] HOSPITALHematocrit (Bld) [Volume fraction] 27.0 %Low36.3 - 47.1 %[facility]ON [facility] HOSPITALHemoglobin (Bld) [Mass/Vol]9.3 g/dLLow11.9 - 15.1 g/dLBON [facility]SUB[facility] BRENT[facility]OD HOSPITALImmature granulocytes/100 WBC (Bld)5 %Lqmq8ATOHEALTHSOUTH MEDICAL CENTERInterpretation and review of laboratory resultsAbnormalBON [facility] HOSPITALLymphocytes/100 WBC (Bld)26 %24 - 44 %[facility]ENTERH (RBC) [Entitic mass]31.5 pg25.2 - 33.5 pgBON [facility] CINCINNATIHC (RBC) [Mass/Vol]34.4 g/dL28.4 - 34.8 g/dLBON [facility] (RBC) [Entitic vol]91.5 fL82.6 - 102.9 fLHEALTHSOUTH MEDICAL CENTER Monocytes/100 WBC (Bld)4 %1 - 7 %[facility] CENTERMorphology Malachi (Bld) [Interp]ANISOCYTOSIS PRESENTBON [facility] HOSPITALNRBC Automated0.00.0 per 100 WBCBON [facility]CRIV[facility] HEALTHPlatelet distribution width (Bld) [Ratio]17.7 %High 11.8 - 14.4 %BON [facility] & BRENTWOOD HOSPITALPlatelet mean volume (Bld) [Entitic vol]8.8 fL8.1 - 13.5 fLSIERRA VISTA REGIONAL [facility]ALTH CENTER SECRIVERSIDE [facility]ENTER HEALTHPlatelets (Bld) [#/Vol]491 10*3/uLHighBON [facility] [facility] HEALTHRBC (Bld) [#/Vol]2.95 10*6/uLLow3.95 - 5.11 m/uLBON [facility]ITALSeg Yvklnyskpgd79 %36 - 66 %[facility]ALTH[facility] MEDICAL CENTERSegs Absolute 9.23HighHEALTHSOUTH MEDICAL CENTERWBC (Bld) [#/Vol]14.2 10*3/uLHighINOVA ALEXANDRIA HOSPITALHemoglobin and Hematocriton 07-30-2021 Hematocrit (Bld) [Volume fraction]29.5 %Low36.3 - 47.1 %[facility] Hemoglobin (Bld) [Mass/Vol]9.6 g/dLLow11.9 - 15.1 g/dLBON [facility] Interpretation and review of laboratory resultsAbnormalSENTARA LEIGH HOSPITALPOC Glucose Fingerstickon 63-24-6904Xgciatw [Mass/Vol] 106 mg/zUWpgj32 - 105 mg/dLBON [facility] HOSPITALInterpretation and review of laboratory resultsAbnormalINOVA ALEXANDRIA HOSPITAL Glucose [Mass/Vol]231 mg/jYGlfw30 - 105 mg/dLBON [facility] Interpretation and review of laboratory resultsAbnormalSENTARA LEIGH HOSPITALTYPE AND SCREENon 94-67-9368QRJ/RhPositiveBON [facility] HOSPITALArm Band NumberBE [id number] MEDICAL CENTERBlood Bank Blood Product Expiration [id number] Secours Mary Immaculate Hospitalood Bank ISBT Product Blood [id number] [facility] Centerood Bank Unit Type and Rh PositiveBon Secours Mary Immaculate Hospitalood product type Nom (BPU)Leukocyte Reduced Red CellBON [facility] Centerood product unit ID (Dose) [#][id number] MEDICAL CENTERCrossmatch ResultCOMPATIBLEHEALTHSOUTH MEDICAL CENTERDispense StatusTRANSFUSEDBSTAFFORD HOSPITALExpiration Date08/01/2021,2359BON [facility] HOSPITALProduct Code Blood [id number] MEDICAL CENTER Transfusion StatusOK TO TRANSFUSEHEALTHSOUTH MEDICAL CENTERUnit Fuhvuyu5EIBHEALTHSOUTH MEDICAL CENTERUnit Issue Date/[id number] [facility] BRENT[facility]OD HOSPITALBON [facility] HEALTHArterial Blood Gas, POCon 59-10-7475Umzva TestNOT APPLICABLE BON [facility] RJKAMNNFE144.0BON [facility]SUB[facility] & BRENTWOOD HOSPITALHCO3 (Bld) [Moles/Vol] 23.0 mmol/L21.0 - 28.0 mmol/LBON [facility] HEALTHInterpretation and review of laboratory resultsAbnormalBON [facility] HEALTHModePRVCBON SECSUBUR[facility] BRENT[facility]OD HOSPITALNegative Base Excess, [id number] [facility] HEALTHO2 Device/Flow/%Adult VentilatorBON SECSUBUR[facility] BRENTWOOD HOSPITALOxygen saturation in Blood99 %High94.0 - 98.0 %BON SECTRIHEALTH BETHESDA NORTH HOSPITALC lTK698.1BON SECSUBUR[facility] & BRENTWOOD HOSPITALPOC pH7.425BON SECTRIHEALTH BETHESDA NORTH HOSPITALC UP1074.9HighBON [facility]OSPITALSample SiteArterial LineBON [facility] AVERABasic Metabolic Panel w/ Reflex to MGon 18-87-4526Wzjng gap [Moles/Vol]9 mmol/L9 - 17 mmol/LBON [facility] HEALTHCalcium [Mass/Vol]7.8 mg/dLLow8.6 - 10.4 mg/dLBON [facility] HEALTHChloride [Moles/Vol]106 mmol/L98 - 107 mmol/LBON [facility] HEALTHCO2 [Moles/Vol]21 mmol/L20 - 31 mmol/LBON [facility] HEALTHCreatinine [Mass/Vol] 0.71 mg/dL0.50 - 0.90 mg/dLBON [facility] HEALTHGFR >60>60 mL/minBON [facility]ITALOU[facility] HEALTHGFR Non->60>60 mL/minBON [facility] HEALTHGFR/1.73 sq M.predicted MDRD (S/P/Bld) [Vol rate/Area]BON [facility] HEALTHGlucose [Mass/Vol]246 mg/gEUgdh50 - 99 mg/dLBON [facility] HEALTH Interpretation and review of laboratory resultsAbnormalBON [facility] HEALTH Potassium [Moles/Vol]3.6 mmol/LLow3.7 - 5.3 mmol/LBON [facility] BRENT[facility] HOSPITALSodium [Moles/Vol]136 mmol/L135 - 144 mmol/LBON [facility] HOSPITALUrea nitrogen (BldV) [Mass/Vol]11 mg/dL6 - 20 mg/dLBON [facility] HOSPITALBON [facility] HOSPITALCBC with Auto Differentialon 55-70-4493Jfygnkgm Eos #0.00BON [facility] BRENT[facility]OD HOSPITALAbsolute Immature Granulocyte0.43HighBON [facility] BRENTWOOD HOSPITALAbsolute Lymph #3.13BON [facility] BRENT[facility]OD HOSPITALAbsolute [place] #0.32BON [facility] Basophils (Bld) [#/Vol]0.00 10*3/uLBON [facility] HOS[facility]ITALBasophils/100 WBC (Bld)0 %0 - 2 %[facility]ALTH[facility] MEDICAL CENTEREosinophils/100 WBC (Bld)0 %Low1 - 4 %HEALTH[facility] MEDICAL CENTERHematocrit (Bld) [Volume fraction]22.5 %Low36.3 - 47.1 %[facility] MEDICAL CENTERHemoglobin (Bld) [Mass/Vol]7.4 g/dLLow11.9 - 15.1 g/dLBON [facility] HOSPITALImmature granulocytes/100 WBC (Bld)4 %Bpli1CTRHEALTHSOUTH MEDICAL CENTERInterpretation and review of laboratory resultsAbnormalBON [facility] HOSPITALLymphocytes/100 WBC (Bld)29 %24 - 44 %[facility]ENTERH (RBC) [Entitic mass]30.7 pg25.2 - 33.5 pgBON [facility] CINCINNATIHC (RBC) [Mass/Vol] 32.9 g/dL28.4 - 34.8 g/dLBON [facility] (RBC) [Entitic vol]93.4 fL 82.6 - 102.9 fLHEALTHSOUTH MEDICAL CENTERMonocytes/100 WBC (Bld)3 %1 - 7 %[facility]ALTH[facility] MEDICAL CENTERMorphology Malachi (Bld) [Interp]ANISOCYTOSIS PRESENTHEALTHSOUTH MEDICAL CENTERNRBC Automated0.00.0 per 100 WBCHEALTHSOUTH MEDICAL CENTERPlatelet distribution width (Bld) [Ratio]19.6 %High11.8 - 14.4 %[facility] Platelet mean volume (Bld) [Entitic vol]8.9 fL8.1 - 13.5 fLWYTHE COUNTY COMMUNITY [facility]PITAL HEALTHPlatelets (Bld) [#/Vol]500 10*3/uLHighHEALTHSOUTH MEDICAL CENTERRBC (Bld) [#/Vol]2.41 10*6/uLLow3.95 - 5.11 m/uLHEALTHSOUTH MEDICAL CENTERSeg Xyozpdcmywe97 %36 - 66 %BON [facility]ITALSegs Absolute6.92BON [facility] HOSPITALWBC (Bld) [#/Vol]10.8 10*3/uLINOVA ALEXANDRIA [facility]OSPITAL Hemoglobin and Hematocriton 29-00-8986Qdjopehndk (Bld) [Volume fraction]29.9 % Low36.3 - 47.1 %[facility] MEDICAL CENTERHemoglobin (Bld) [Mass/Vol]10.1 g/dLLow 11.9 - 15.1 g/dLBON [facility]OSPITALInterpretation and review of laboratory resultsAbnormInova [facility] HEALTHHematocrit (Bld) [Volume fraction]24.9 %Low36.3 - 47.1 %[facility] CENTERHemoglobin (Bld) [Mass/Vol]8.4 g/dLLow11.9 - 15.1 g/dLBON [facility] HEALTHInterpretation and review of laboratory resultsAbnormHealthSouth Medical CenterPO Glucose Fingerstickon 55-44-6822Pntwfyj [Mass/Vol]169 mg/sDAvwo15 - 105 mg/dLBON [facility] HEALTHInterpretation and review of laboratory results AbnormalBON [facility] - AVERAGlucose [Mass/Vol]296 mg/vMJmlz24 - 105 mg/dLBON [facility] HEALTHInterpretation and review of laboratory resultsAbnormHealthSouth Medical Center Glucose [Mass/Vol]276 mg/eMIgwc67 - 105 mg/dLBON [facility] HEALTH Interpretation and review of laboratory resultsAbnormalHEALTHSOUTH MED[facility]ENTER BON [facility] HEALTHGlucose [Mass/Vol]217 mg/pXTjzg26 - 105 mg/dLBON [facility] HEALTHInterpretation and review of laboratory resultsAbnormalBON [facility] HOSPITALBON [facility] HOSPITALArterial Blood Gas, POCon 70-42-0964LUF743.0 HEALTH[facility] MEDICAL CENTERHCO3 (Bld) [Moles/Vol]22.0 mmol/L21.0 - 28.0 mmol/LBON [facility]ITALModePRVCBON [facility]ITALNegative Base Excess, Art2 HEALTH[facility] MEDICAL CENTERO2 Device/Flow/%Adult VentilatorBON [facility] Oxygen saturation in Blood98 %94.0 - 98.0 %BON [facility]ENTERC fYX419.9 LowBON [facility] CENTERC pH7.460HighBON [facility] CENTERC PJ7369.0 [facility]ENTERSample SiteArterial LineHEALTHSOUTH MEDICAL CENTERBasic Metabolic Panel w/ Reflex to MGon 00-87-3141Gldit gap [Moles/Vol]9 mmol/L9 - 17 mmol/LBON [facility] HOSPITALCalcium [Mass/Vol]8.1 mg/dLLow8.6 - 10.4 mg/dLBON [facility] HOSPITALChloride [Moles/Vol]108 mmol/LHigh98 - 107 mmol/LBON [facility] HOSPITALCO2 [Moles/Vol]20 mmol/L20 - 31 mmol/LBON [facility] Creatinine [Mass/Vol]0.73 mg/dL0.50 - 0.90 mg/dLBON [facility]PITALGFR >60>60 mL/minHEALTHSOUTH MEDICAL CENTERGFR Non->60 >60 mL/minHEALTHSOUTH MEDICAL CENTERGFR/1.73 sq M.predicted MDRD (S/P/Bld) [Vol rate/Area][facility] MEDICAL CENTERGlucose [Mass/Vol]195 mg/aEBwst00 - 99 mg/dL [facility] CENTERInterpretation and review of laboratory resultsAbnormal BON [facility]ITALPotassium [Moles/Vol]4.2 mmol/L3.7 - 5.3 mmol/LBON [facility] HOSPITALSodium [Moles/Vol]137 mmol/L135 - 144 mmol/LBON [facility] HOSPITALUrea nitrogen (BldV) [Mass/Vol]8 mg/dL6 - 20 mg/dLBON [facility] SERVICESCBC with Auto Differentialon 18-22-8268Wueempvf Eos #0.00BON [facility]ITALAbsolute Immature Granulocyte0.64HighBON [facility]ITALAbsolute Lymph #2.69BON [facility]ITALAbsolute [place] # 0.00LowBON [facility] HOSPITALBasophils (Bld) [#/Vol]0.00 10*3/uLBON [facility]OSPITALBasophils/100 WBC (Bld)0 %0 - 2 %[facility] Eosinophils/100 WBC (Bld)0 %Low1 - 4 %HEALTH[facility] MEDICAL CENTERHematocrit (Bld) [Volume fraction]24.4 %Low36.3 - 47.1 %[facility] MEDICAL CENTERHemoglobin (Bld) [Mass/Vol]7.9 g/dLLow11.9 - 15.1 g/dLBON [facility]ITALImmature granulocytes/100 WBC (Bld)5 %Fzis0TBQHEALTHSOUTH MEDICAL CENTERInterpretation and review of laboratory resultsAbnormalBON [facility] HOSPITALLymphocytes/100 WBC (Bld)21 %Low24 - 44 %[facility]ENTERH (RBC) [Entitic mass]30.5 pg25.2 - 33.5 pgCHESAPEAKE REGIONAL MEDICAL CENTERHC (RBC) [Mass/Vol]32.4 g/dL28.4 - 34.8 g/dL [facility] CENTERV (RBC) [Entitic vol]94.2 fL82.6 - 102.9 fLHEALTHSOUTH MEDICAL CENTERMonocytes/100 WBC (Bld)0 %Low1 - 7 %[facility] Morphology Malachi (Bld) [Interp]ANISOCYTOSIS PRESENTHEALTHSOUTH MEDICAL CENTERNRBC Automated0.00.0 per 100 WBCHEALTHSOUTH MEDICAL CENTERPlatelet distribution width (Bld) [Ratio]19.0 %High11.8 - 14.4 %[facility] MEDICAL CENTERPlatelet mean volume (Bld) [Entitic vol]8.8 fL8.1 - 13.5 fLHEALTHSOUTH MEDICAL CENTERPlatelets (Bld) [#/Vol]490 10*3/uLHighBON [facility] HOSPITALRBC (Bld) [#/Vol]2.59 10*6/uLLow 3.95 - 5.11 m/uLBON [facility]ITALSeg Ygaeyeasmld28 %High36 - 66 %BON [facility]ALSegs Absolute9.47HighHEALTHSOUTH MEDICAL CENTERWBC (Bld) [#/Vol]12.8 10*3/uLHighBON [facility] - AVERACalcium, Ionizedon 53-76-0712Cjguuxq [Moles/Vol]1.15 mmol/L1.13 - 1.33 mmol/LBON [facility] - AVERAHemoglobin and Hematocriton 07-28-2021 Hematocrit (Bld) [Volume fraction]23.9 %Low36.3 - 47.1 %[facility] Hemoglobin (Bld) [Mass/Vol]8.2 g/dLLow11.9 - 15.1 g/dLBON [facility] Interpretation and review of laboratory resultsAbnormRiverside Walter Reed HospitalNo Panel Informationon 57-33-2704Jmmczxipyemhbc and review of laboratory resultsAbnormAugusta Health Glucose Fingerstickon 12-63-9813Dxdkhhk [Mass/Vol]183 mg/dTCgfd95 - 105 mg/dLBON [facility]OS[facility]ITALInterpretation and review of laboratory results AbnormalBON [facility] - AVERAGlucose [Mass/Vol]187 mg/wAHwkz35 - 105 mg/dLBON [facility]OSPITALInterpretation and review of laboratory resultsAbnormalINOVA ALEXANDRIA [facility]ITAL Glucose [Mass/Vol]163 mg/sIOykk36 - 105 mg/dLBON [facility] Interpretation and review of laboratory resultsAbnormRiverside Walter Reed HospitalGlucose [Mass/Vol]182 mg/iZNelh87 - 105 mg/dLBON [facility]ITALInterpretation and review of laboratory resultsAbnormalINOVA ALEXANDRIA HOSPITALPOCT Glucoseon 57-11-2187Bcfcoeh [Mass/Vol] 177 mg/iESnzs84 - 100 mg/dLBON [facility]ITALCBC with Auto Differentialon 88-93-3656Tluhawdba (Bld) [#/Vol]0.00 10*3/uLBON [facility] Basophils/100 WBC (Bld)0 %0 - 2 %[facility]ALTH[facility] MED[facility] CENTEREosinophils/100 WBC (Bld)0 %Low1 - 4 %[facility]ALTH[facility] MEDICAL CENTERHematocrit (Bld) [Volume fraction]25.3 %Low36.3 - 47.1 %[facility] MED[facility] CENTERHemoglobin (Bld) [Mass/Vol]8.5 g/dLLow 11.9 - 15.1 g/dLBON [facility] HOSPITALLymphocytes/100 WBC (Bld)19 %Low24 - 44 %[facility]ENTERH (RBC) [Entitic mass]30.6 pg25.2 - 33.5 pgCHESAPEAKE REGIONAL MEDICAL CENTERV (RBC) [Entitic vol]91.0 fL82.6 - 102.9 fLHEALTHSOUTH MEDICAL CENTERMorphology Malachi (Bld) [Interp]ANISOCYTOSIS PRESENTBON [facility]IST HOSPITALRBC (Bld) [#/Vol]2.78 10*6/uLLow3.95 - 5.11 m/uLHEALTHSOUTH MEDICAL CENTER Calcium, Ionizedon 45-28-9345Liattls [Moles/Vol]1.19 mmol/L1.13 - 1.33 mmol/LBON [facility] AVERACulture, Blood 2on 07-27-2021 Bacteria identified Cx Nom (Unsp spec)NO GROWTH 5 DAYSBON [facility] Special RequestsL HAND 20MLHEALTHSOUTH MEDICAL CENTERSpecimen Description.BLOODINOVA ALEXANDRIA HOSPITALHemoglobin and Hematocriton 46-37-3524Hoaprgnqpb (Bld) [Volume fraction]26.4 %Low36.3 - 47.1 %[facility] MED[facility] CENTERHemoglobin (Bld) [Mass/Vol]9.0 g/dLLow11.9 - 15.1 g/dLBON [facility] HEALTHInterpretation and review of laboratory resultsAbnormalINOVA ALEXANDRIA HOSPITALMagnesiumon 60-87-6240Uqzidbfxt [Mass/Vol] 1.8 mg/dL1.6 - 2.6 mg/dLBON [facility] AVERAPO Glucose Fingerstickon 12-65-3318Ylpwdnn [Mass/Vol]149 mg/iCJawb26 - 105 mg/dLBON [facility] HEALTHInterpretation and review of laboratory resultsAbnormalBON [facility] HEALTHGlucose [Mass/Vol]162 mg/gQJtjg71 - 105 mg/dLBON [facility] HEALTHInterpretation and review of laboratory results AbnormalBON [facility] - AVERAGlucose [Mass/Vol]160 mg/lAKhuj90 - 105 mg/dLBON [facility] HEALTHInterpretation and review of laboratory resultsAbnormalINOVA ALEXANDRIA [facility]OS[facility]ITAL Glucose [Mass/Vol]147 mg/uFSjix52 - 105 mg/dLBON [facility] HEALTH Interpretation and review of laboratory resultsAbnormalSMYTH COUNTY [facility] HEALTHGlucose [Mass/Vol]135 mg/fSHkiq64 - 105 mg/dLBON [facility] HEALTHInterpretation and review of laboratory resultsAbnormalHENRICO [facility] HEALTHGlucose [Mass/Vol]204 mg/jVNejg41 - 105 mg/dLBON [facility] HEALTHInterpretation and review of laboratory results AbnormalBON [facility] - AVERABasic Metabolic Panel w/ Reflex to MGon 04-53-5170Xnjck gap [Moles/Vol]14 mmol/L9 - 17 mmol/LBON [facility] HEALTHCalcium [Mass/Vol]8.2 mg/dLLow8.6 - 10.4 mg/dLBON [facility] HEALTHChloride [Moles/Vol]97 mmol/LLow98 - 107 mmol/LBON [facility] HEALTHCO2 [Moles/Vol]30 mmol/L20 - 31 mmol/LBON [facility] HEALTHCreatinine [Mass/Vol] 0.92 mg/dLHigh0.50 - 0.90 [...] body mass. Additional eGFR calculator available at: [email or web address]_[email or web address].htm Glucose [Mass/Vol]96 mg/dL70 - 99 mg/dLBON [facility] HEALTHInterpretation and review of laboratory resultsAbnormalBON [facility] HEALTHPotassium [Moles/Vol]2.0 mmol/LCritically low3.7 - 5.3 mmol/LBON [facility] Sodium [Moles/Vol]141 mmol/L135 - 144 mmol/LBON [facility] HEALTHUrea nitrogen (BldV) [Mass/Vol]5 mg/dLLow6 - 20 mg/dLBON [facility] HEALTHUrea nitrogen/Creatinine (Bld) [Mass ratio]5LowBON [facility] HEALTHB[facility] HEALTHCBC with Auto Differentialon 75-44-0761Wllgsdem Eos #0.00[facility] HEALTHAbsolute Lymph #1.80[facility] HEALTHAbsolute [place] #0.80[facility] HEALTHBasophils (Bld) [#/Vol]0.00 10*3/uLBON [facility] Basophils/100 WBC (Bld)0 %0 - 2 %[facility] HEALTHEosinophils/100 WBC (Bld)0 %0 - 5 %[facility] HEALTHHematocrit (Bld) [Volume fraction]29.9 % Low36 - 46 %[facility] HEALTHHemoglobin.gastrointestinal spec 1 Ql (Stl) 10.1 g/dLLow12.0 - 16.0 g/dLBON [facility] HEALTHInterpretation and review of laboratory resultsAbnormalBON SECSUBUR[facility] BRENTWOOD HOSPITALLymphocytes/100 WBC (Bld)22 % 15 - 40 %BON [facility] (RBC) [Entitic mass]28.4 pg26 - 34 pgBON SECOHIOHE[facility]OSPITALHC (RBC) [Mass/Vol]33.8 g/dL31 - 37 g/dLBON SECOHIOHEALTH SHELBY HOSPITALV (RBC) [Entitic vol]83.9 fL80 - 100 fLBON [facility] Monocytes/100 WBC (Bld)10 %High4 - 8 %BON [facility] HOSPITALMorphology Malachi (Bld) [Interp]MODERATE ANISOCYTOSISBON SECSUB[facility] BRENTWOOD HOSPITALPlatelet distribution width (Bld) [Ratio]19.9 %High12.1 - 15.2 %BON [facility] HEALTHPlatelets (Bld) [#/Vol]701 10*3/uLHighBON [facility] HEALTHRBC (Bld) [#/Vol]3.56 10*6/uLLow4.0 - 5.2 m/uLBON [facility]SUB[facility] & BRENTWOOD HOSPITALSegmented neutrophils/100 WBC (Bld)68 %47 - 75 %[facility] HEALTHSegs Absolute5.60BON [facility] URBANA HOSPITALWBC (Bld) [#/Vol]8.2 10*3/uLBON [facility] SECRIVERS[facility] HEALTHMagnesiumon 47-51-0867Elcruglrl [Mass/Vol]1.6 mg/dL1.6 - 2.6 mg/dLBON SECS[facility] HEALTHCBC with Auto Differentialon 37-56-5561Dlyzzupu Eos #0.10BON [facility] BRENTWOOD HOSPITALAbsolute Lymph #1.60BON [facility] URBANA HOSPITALAbsolute [place] #1.10HighBON [facility]ENT[facility] HOSPITALBasophils (Bld) [#/Vol]0.00 10*3/uLBON [facility]ENT[facility] HOSPITALBasophils/100 WBC (Bld)0 %0 - 2 %BON [facility]OS[facility]ITALEosinophils/100 WBC (Bld)1 %0 - 5 %[facility] HEALTHHematocrit (Bld) [Volume fraction]31.2 %Low36 - 46 %[facility] CENTERHemoglobin.gastrointestinal spec 1 Ql (Stl)10.4 g/dLLow12.0 - 16.0 g/dLBON [facility] HOSPITALInterpretation and review of laboratory resultsAbnormalBON [facility] HOSPITALLymphocytes/100 WBC (Bld)20 %15 - 40 %[facility]ENTERH (RBC) [Entitic mass]28.1 pg26 - 34 pgBON [facility] CINCINNATIHC (RBC) [Mass/Vol]33.2 g/dL31 - 37 g/dLBON [facility] (RBC) [Entitic vol]84.7 fL80 - 100 fLBON [facility] HOSPITALMonocytes/100 WBC (Bld)13 %High4 - 8 %[facility] HEALTHMorphology Malachi (Bld) [Interp]MODERATE ANISOCYTOSISBON [facility] HOSPITALMorphology Malachi (Bld) [Interp]Scanned to verify automated differential.HE[facility] MEDICAL CENTERPlatelet distribution width (Bld) [Ratio] 20.5 %High12.1 - 15.2 %[facility] HEALTHPlatelets (Bld) [#/Vol]725 10*3/uLHighBON [facility] HEALTHRBC (Bld) [#/Vol]3.68 10*6/uLLow4.0 - 5.2 m/uLBON [facility] HOSPITALSegmented neutrophils/100 WBC (Bld)66 %47 - 75 %HEALTH[facility] MEDICAL CENTERSegs Absolute5.30BON [facility] HOSPITALWBC (Bld) [#/Vol] 8.1 10*3/uLBON [facility] HEALTHCOVID-19, Rapidon 88-44-8948Bhqeqnqyqdfien and review of laboratory resultsAbnormalBON [facility] HOSPITALRS-CoV-2 (COVID-19) RNA CAL+probe Ql (Unsp spec)DetectedAbnormal Not DetectedHEALTHSOUTH MEDICAL CENTERComment on above: Rapid NAAT: The [...] this assay. Fact sheet for Healthcare Providers: https://www.fda.gov/media/883749/download Fact sheet for Patients: https://www.fda.gov/media/887492/download Methodology: Isothermal Nucleic Acid Amplification Results reported to the appropriate Health Department Specimen Description.NASOPHARYNGEAL SWABBON SECPROVIDENCE ST. JOSEPH'S HOSPITALMakana Solutions HEALTHBON SECPROVIDENCE ST. JOSEPH'S HOSPITALY HEALTHComprehensive Metabolic Panel w/ Reflex to MGon 97-60-1650Zjpqmbb [Mass/Vol]2.5 g/dLLow3.5 - 5.2 g/dLBON SECOURS DOCTORS HOSPITALY HEALTHALP (Bld) [Catalytic activity/Vol]450 U/LHigh35 - 104 U/LBON SEC[facility] DOCTORS HOSPITALY HEALTHALT [Catalytic activity/Vol]13 U/L5 - 33 U/LBON [facility] HEALTHAnion gap [Moles/Vol]16 mmol/L9 - 17 mmol/LBON SECOURS In Hand GuidesY HEALTHAST [Catalytic activity/Vol]29 U/L<32 BON SECOURS In Hand GuidesY HEALTHBilirubin [Mass/Vol]0.64 mg/dL0.30 - 1.20 mg/dLBON [facility] HEALTHCalcium [Mass/Vol]8.7 mg/dL8.6 - 10.4 mg/dLBON [facility] HEALTHChloride [Moles/Vol]102 mmol/L98 - 107 mmol/LBON [facility] HEALTHCO2 [Moles/Vol]25 mmol/L20 - 31 mmol/LBON [facility] HEALTHCreatinine [Mass/Vol] 0.85 mg/dL0.50 - 0.90 mg/dLBON [facility]RS MERCY HEALTHFree PSA/Total PSA [Mass fraction]6.5 g/dL6.4 - 8.3 g/dLBON [facility]OURS MERCY HEALTHGFR >60 >60 mL/minBON SECOURS [facility]Y HEALTHGFR Non->60>60 mL/minHEALTHSOUTH MEDICAL CENTERGFR/1.73 sq M.predicted MDRD (S/P/Bld) [Vol rate/Area][facility] MEDICAL CENTERComment on above:Average GFR for 50-59 years old: 93 mL/min/1.73sq m Chronic Kidney Disease: <60 mL/min/1.73sq m Kidney failure: <15 mL/min/1.73sq m eGFR calculated using average adult body mass. Additional eGFR calculator available at: http://www.[employer]/multiple_crcl_2012.htm Glucose [Mass/Vol]79 mg/dL70 - 99 mg/dLBON [facility] HOSPITALInterpretation and review of laboratory resultsAbnormalHEALTHSOUTH MEDICAL CENTERPotassium [Moles/Vol]2.2 mmol/LCritically low3.7 - 5.3 mmol/LBON [facility] Sodium [Moles/Vol]143 mmol/L135 - 144 mmol/LBON [facility]IST HOSPITALUrea nitrogen (BldV) [Mass/Vol]7 mg/dL6 - 20 mg/dLBON [facility]IST HOSPITALUrea nitrogen/Creatinine (Bld) [Mass ratio]8LowINOVA ALEXANDRIA HOSPITALLactate Dehydrogenaseon [id number] and review of laboratory resultsAbnormalHEALTHSOUTH MEDICAL CENTERLD317 U/GHewi609 - 214 U/LBON [facility] - AVERALactic Acidon [id number] [Moles/Vol]1 mmol/L0.5 - 2.2 mmol/LBON [facility] - AVERAMagnesiumon [id number] and review of laboratory results AbnormalBON [facility] HOSPITALMagnesium [Mass/Vol]1.5 mg/dLLow1.6 - 2.6 mg/dL BON [facility] - AVERAXR CHEST PORTABLEon 07-13-2021 Left infrahilar patchy airspace [...] anchor noted within the left humeral head. [facility] Lionel Olivas MD - 07/13/2021 EXAM: XR CHEST [...] 4 weeks post treatment to document resolution. [employer] Work Phone: radiology Study observation (narrative)[employer] Phone: XR CHEST PORTABLEOrdered By: Lionel Mas on [id number] Work Phone: Basic Metabolic Panel w/ Reflex to MGon 07-10-2021 Anion gap [Moles/Vol]14 mmol/L9 - 17 mmol/LBON [facility]genXCalcium [Mass/Vol]7.4 mg/dLLow8.6 - 10.4 mg/dLBON [facility] HEALTHChloride [Moles/Vol]110 mmol/LHigh98 - 107 mmol/LBON [facility] HEALTHCO2 [Moles/Vol] 16 mmol/LLow20 - 31 mmol/LBON [facility]genXCreatinine [Mass/Vol]1.01 mg/dLHigh0.50 - 0.90 mg/dLBON IntegenXGFR >60>60 mL/minBON [facility] HEALTHGFR Non- Aqfeqjbk48 mL/minLow>60BON IntegenXGFR/1.73 sq M.predicted MDRD (S/P/Bld) [Vol rate/Area][facility] CENTERGlucose [Mass/Vol]65 mg/dLLow70 - 99 mg/dLBON [facility] Potassium [Moles/Vol]3.3 mmol/LLow3.7 - 5.3 mmol/LBON [facility]IST HOSPITALSodium [Moles/Vol]140 mmol/L135 - 144 mmol/LBON [facility] HOSPITALUrea nitrogen (BldV) [Mass/Vol]7 mg/dL6 - 20 mg/dLBON [facility] HOSPITALC-Reactive Proteinon 10-03-3030CDP [Mass/Vol]161.7 mg/LHigh0.0 - 5.0 mg/LBON [facility]ITALCBC with Auto Differentialon [id number] Eos #0.18BON [facility] Absolute Immature Granulocyte0.00BON [facility] HOSPITALAbsolute Lymph #3.40BON [facility]ITALAbsolute [place] #0.72BON [facility] HOSPITALBasophils (Bld) [#/Vol]0.00 10*3/uLBON [facility]ITALBasophils/100 WBC (Bld)0 %0 - 2 %[facility]ENTEREosinophils/100 WBC (Bld)1 %1 - 4 %[facility] Hematocrit (Bld) [Volume fraction]25.6 %Low36.3 - 47.1 %[facility] Hemoglobin.gastrointestinal spec 1 Ql (Stl)8.3 g/dLLow11.9 - 15.1 g/dLBON [facility]ITALImmature granulocytes/100 WBC (Bld)0 %0BON [facility]OSPITALInterpretation and review of laboratory resultsAbnormalBON [facility] HOSPITALLymphocytes/100 WBC (Bld)19 %Low24 - 44 %[facility]ENTERH (RBC) [Entitic mass]27.8 pg25.2 - 33.5 pgBON [facility] CINCINNATIHC (RBC) [Mass/Vol] 32.4 g/dL28.4 - 34.8 g/dLBON [facility] HEALTHMCV (RBC) [Entitic vol]85.6 fL 82.6 - 102.9 fLSIERRA VISTA REG[facility]ENTER [facility]ITALY HEALTHMonocytes/100 WBC (Bld)4 %1 - 7 %BON [facility] HEALTHMorphology Malachi (Bld) [Interp]ANISOCYTOSIS PRESENTBON SECPROVID[facility] ST[facility] JOSE[facility] HOSPITALY HEALTHNRBC Automated0.00.0 per 100 WBCBON SEC[facility]ORS [facility]OSPITALY HEALTHPlatelet distribution width (Bld) [Ratio]20.4 %High11.8 - 14.4 %BON SECCash'o & Butcher DOCTORS HOSPITALMakana Solutions [facility] Platelet mean volume (Bld) [Entitic vol]9.0 fL8.1 - 13.5 fLBON [facility]ITALY HEALTHPlatelets (Bld) [#/Vol]530 10*3/uLHighBON [facility]OSPITALY HEALTHRBC (Bld) [#/Vol]2.99 10*6/uLLow3.95 - 5.11 m/uLBON SECJORGE DOCTORS HOSPITALY [facility] HOSPITALSeg Eutsveizwxs07 %High36 - 66 %BON [email or web address] [facility] HOSPITALSegs Ugatfrpm18.60HighBON [facility] URBANA HOSPITALWBC (Bld) [#/Vol]17.9 10*3/uLHighBON [facility] HEALTHCOVID-19, Rapidon 50-98-9627HWKP-CoV-2 (COVID-19) RNA CAL+probe Ql (Unsp spec)Not detectedNot DetectedBON SECCash'o & Butcher [facility] URBANA HOSPITALSpecimen Description .NASOPHARYNGEAL SWABBON [facility] SECCash'o & Butcher [facility] HEALTHCT CERVICAL SPINE WO CONTRASTon [id number] RIS CONSOLIDATEDMHPN RIS CONSOLIDATEDBON SECCash'o & Butcher DOCTORS HOSPITALMakana Solutions HEALTH Work Phone: radiology Study observation (narrative)BON [employer] Work Phone: cT CERVICAL SPINE WO CONTRASTOrdered By: Earl Jose F on 65-39-1103IMX miacosa HEALTH Work Phone: Insert PICC lineon [id number] [email or web address] HEALTH Work Phone: Magnesiumon 50-17-1737Qaaozxyew [Mass/Vol]1.8 mg/dL1.6 - 2.6 mg/dLBON [facility] VAL[facility] HOSPITALMoneyFarmSIERRA [facility]IST[facility] IntegenXNo Panel Information on 56-55-6083Uqcbgwyjrjtfok and review of laboratory resultsAbnormalBON OR[facility] VALLEY HOSPITALJORGE DOCTORS HOSPITALMakana Solutions [facility]YCHIATRIC [email or web address] [facility] HOSPITALPOC Glucose Fingerstickon 88-87-9313Byqcfhz [Mass/Vol]137 mg/pMRmkg16 - 105 mg/dLBON miacosa [facility] HOSPITALInterpretation and review of laboratory resultsAbnormalBON OR[facility] VALLEY HOSPITALJORGE DOCTORS HOSPITALMakana Solutions [facility] [email or web address] HEALTHGlucose [Mass/Vol]77 mg/dL65 - 105 mg/dLBON OR[facility] VALLEY HOSPITALCash'o & Butcher DOCTORS HOSPITALMakana Solutions [facility] miacosa [facility] HOSPITALXR CERVICAL SPINE FLEXION AND EXTENSIONon 45-74-9739HGGV RIS CONSOLIDATEDMHPN RIS [facility] [employer] Work Phone: bON [employer] Work Phone: radiology Study observation (narrative)[facility] [employer] Work Phone: basic Metabolic Panel w/ Reflex to MGon 07-09-2021 Anion gap [Moles/Vol]11 mmol/L9 - 17 mmol/LBON IntegenXCalcium [Mass/Vol]7.7 mg/dLLow8.6 - 10.4 mg/dLBON IntegenXChloride [Moles/Vol]109 mmol/LHigh98 - 107 mmol/LBON miacosa HEALTHCO2 [Moles/Vol] 20 mmol/L20 - 31 mmol/LBON IntegenXCreatinine [Mass/Vol]0.81 mg/dL 0.50 - 0.90 mg/dLBON miacosa HEALTHGFR >60>60 mL/minSIERRA VISTA REGIONAL [facility]ENTER miacosa HEALTHGFR Non->60>60 mL/minSIERRA VISTA REGIONAL [facility]ENTER IntegenXGFR/1.73 sq M.predicted MDRD (S/P/Bld) [Vol rate/Area]BON IntegenXGlucose [Mass/Vol]133 mg/uBGqhy25 - 99 mg/dLBON [employer] Potassium [Moles/Vol]3.9 mmol/L3.7 - 5.3 mmol/LBON IntegenXSodium [Moles/Vol]140 mmol/L135 - 144 mmol/LBON [facility] HOSPITALUrea nitrogen (BldV) [Mass/Vol]7 mg/dL6 - 20 mg/dLBON [facility] HOSPITALC-Reactive Proteinon 53-44-2284KOZ [Mass/Vol]124.1 mg/LHigh0.0 - 5.0 mg/LBON [facility]OS[facility]ITALCBC with Auto Differentialon 84-72-4929Ypoakaqw Eos #0.40BON [facility] Absolute Immature Granulocyte0.08BON [facility]ITALAbsolute Lymph #2.06BON [facility]ITALAbsolute [place] #0.48BON [facility] HOSPITALBasophils (Bld) [#/Vol]10*3/uLBON [facility]ITALBasophils/100 WBC (Bld)0 %0 - 2 %[facility]ENTEREosinophils/100 WBC (Bld)4 %1 - 4 %[facility] Hematocrit (Bld) [Volume fraction]27.9 %Low36.3 - 47.1 %[facility] Hemoglobin.gastrointestinal spec 1 Ql (Stl)8.5 g/dLLow11.9 - 15.1 g/dLBON [facility]ITALImmature granulocytes/100 WBC (Bld)1 %Hfts3EXQHEALTHSOUTH MEDICAL CENTERInterpretation and review of laboratory resultsAbnormalBON [facility] HOSPITALLymphocytes/100 WBC (Bld)18 %Low24 - 43 %[facility] CENTERH (RBC) [Entitic mass]27.3 pg25.2 - 33.5 pgBON [facility] CINCINNATIHC (RBC) [Mass/Vol] 30.5 g/dL28.4 - 34.8 g/dLBON [facility] (RBC) [Entitic vol]89.7 fL 82.6 - 102.9 fLHEALTHSOUTH MEDICAL CENTERMonocytes/100 WBC (Bld)4 %3 - 12 %[facility] CENTERNRBC Automated0.00.0 per 100 WBCHEALTHSOUTH MEDICAL CENTER Platelet distribution width (Bld) [Ratio]19.9 %High11.8 - 14.4 %B[facility] HEALTHPlatelet mean volume (Bld) [Entitic vol]8.9 fL8.1 - 13.5 fLWYTHE COUNTY COMMUNITY HOSPITAL HEALTHPlatelets (Bld) [#/Vol]434 10*3/uLHEALTHSOUTH MEDICAL CENTER RBC (Bld) [#/Vol]3.11 10*6/uLLow3.95 - 5.11 m/uLHEALTHSOUTH MEDICAL CENTERRBC (Bld) [#/Vol]ANISOCYTOSIS PRESENTBON [facility] HOSPITALSeg Qgqmpwnfbqj74 %High 36 - 65 %BON [facility] HOSPITALSegs Absolute8.48HighHEALTHSOUTH MEDICAL CENTER WBC (Bld) [#/Vol]11.5 10*3/uLHighINOVA ALEXANDRIA HOSPITALCOVID-19, Rapidon [id number]-CoV-2 (COVID-19) RNA CAL+probe Ql (Unsp spec)Not detectedNot DetectedHEALTHSOUTH MEDICAL CENTERSpecimen Description .NASOPHARYNGEAL SWABBON [facility] AVERANo Panel Informationon 69-77-1388Xkpnhqqkbsqbbj and review of laboratory resultsAbnormal [facility] ALEXANDRIA HOSPITALPO Glucose Fingerstickon 83-50-6344Qplvrni [Mass/Vol]101 mg/dL65 - 105 mg/dLBON [facility] - AVERAGlucose [Mass/Vol]146 mg/kQPbxc81 - 105 mg/dLBON [facility] HEALTHInterpretation and review of laboratory resultsAbnormalBON [facility] - AVERAGlucose [Mass/Vol]99 mg/dL65 - 105 mg/dLBON [facility] AVERAGlucose [Mass/Vol]138 mg/zVYooz45 - 105 mg/dLBON [facility] HEALTHInterpretation and review of laboratory results AbnormalBON [facility] - AVERAGlucose [Mass/Vol]171 mg/fDRjpr50 - 105 mg/dLBON [facility] HOSPITALInterpretation and review of laboratory resultsAbnormalBON [facility] Glucose [Mass/Vol]279 mg/tFJian91 - 105 mg/dLBON [facility] Interpretation and review of laboratory resultsAbnormalHEALTHSOU[facility]ENTER BON [facility] HEALTHGlucose [Mass/Vol]59 mg/dLLow65 - 105 mg/dLBON [facility] HEALTHInterpretation and review of laboratory resultsAbnormalBON [facility] HEALTHGlucose [Mass/Vol]59 mg/dLLow65 - 105 mg/dL BON [facility] HEALTHInterpretation and review of laboratory resultsAbnormal BON [facility] HEALTHGlucose [Mass/Vol]58 mg/dLLow65 - 105 mg/dLBON [facility] HEALTHInterpretation and review of laboratory resultsAbnormalHENRICO [facility] HEALTHGlucose [Mass/Vol]306 mg/oMUgmq41 - 105 mg/dLBON [facility] HEALTHInterpretation and review of laboratory resultsAbnormInova [facility] HEALTHBasic Metabolic Panel w/ Reflex to MGon 56-90-2751Gnxsf gap [Moles/Vol]10 mmol/L9 - 17 mmol/LBON [facility] HEALTHCalcium [Mass/Vol]7.3 mg/dLLow8.6 - 10.4 mg/dLBON [facility] HEALTHChloride [Moles/Vol]108 mmol/LHigh98 - 107 mmol/LBON [facility] HEALTHCO2 [Moles/Vol]20 mmol/L20 - 31 mmol/LBON [facility] HEALTHCreatinine [Mass/Vol]0.83 mg/dL0.50 - 0.90 mg/dLBON [facility] HEALTHGFR >60>60 mL/minWYTHE COUNTY COMM[facility] HEALTHGFR Non->60>60 mL/minWYTHE COUNTY COMM[facility] HEALTHGFR/1.73 sq M.predicted MDRD (S/P/Bld) [Vol rate/Area]BON [facility] HEALTHGlucose [Mass/Vol]141 mg/dLHigh 70 - 99 mg/dLBON [facility] HEALTHInterpretation and review of laboratory resultsAbnormalWYTHE COUNTY [facility] HEALTHPotassium [Moles/Vol]2.9 mmol/LCritically low3.7 - 5.3 mmol/LBON [facility] HEALTHSodium [Moles/Vol]138 mmol/L135 - 144 mmol/LBON [facility] HOSPITALUrea nitrogen (BldV) [Mass/Vol]7 mg/dL6 - 20 mg/dLBON [facility] AVERAC-Reactive Proteinon 26-92-7806MRG [Mass/Vol]131.5 mg/LHigh0.0 - 5.0 mg/LBON [facility] Interpretation and review of laboratory resultsAbnormalBON [facility] BON [facility]ITALCBC with Auto Differentialon 37-50-0697Chmkzbek Eos # 0.31BON [facility]SUBUR[facility] BRENT[facility]OD HOSPITALAbsolute Immature Granulocyte0.05BON SECSUBURBAN [facility] & BRENTWOOD HOSPITALAbsolute Lymph #1.87BON [facility]NA HOSPITALAbsolute [place] #0.37BON [facility]OS[facility]ITALBasophils (Bld) [#/Vol]10*3/uLBON [facility]ITALBasophils/100 WBC (Bld)0 %0 - 2 %[facility] CENTEREosinophils/100 WBC (Bld)3 %1 - 4 % [facility] CENTERHematocrit (Bld) [Volume fraction]21.5 %Low36.3 - 47.1 % [facility] CENTERHemoglobin.gastrointestinal spec 1 Ql (Stl)6.9 g/dL Critically low11.9 - 15.1 g/dLBON [facility]ITALImmature granulocytes/100 WBC (Bld)0 %0BON [facility]OS[facility]ITALInterpretation and review of laboratory resultsAbnormalBON [facility] HOSPITALLymphocytes/100 WBC (Bld)17 %Low24 - 43 % [facility]ENTERH (RBC) [Entitic mass]27.5 pg25.2 - 33.5 pgBON [facility] CINCINNATIHC (RBC) [Mass/Vol]32.1 g/dL28.4 - 34.8 g/dLBON [facility] (RBC) [Entitic vol]85.7 fL82.6 - 102.9 fLHEALTHSOUTH MEDICAL CENTER Monocytes/100 WBC (Bld)3 %3 - 12 %[facility] CENTERNRBC Automated0.00.0 per 100 WBCBON [facility] HEALTHPlatelet distribution width (Bld) [Ratio]18.6 %High11.8 - 14.4 %[facility] HEALTHPlatelet mean volume (Bld) [Entitic vol]8.9 fL8.1 - 13.5 fLBON SEC[facility]ITALY HEALTHPlatelets (Bld) [#/Vol]328 10*3/uLBON [facility]ITALY HEALTHRBC (Bld) [#/Vol]2.51 10*6/uLLow3.95 - 5.11 m/uL BON [facility]Y HEALTHRBC (Bld) [#/Vol]ANISOCYTOSIS PRESENTBON SEC[facility]ITALY HEALTHSeg Zpeqzbwnsrr42 %High36 - 65 %[facility] HEALTHSegs Absolute8.74 HighBON SEC[facility]CTORS HOSPITALY HEALTHWBC (Bld) [#/Vol]11.4 10*3/uLHighBON [facility]CCLINT[facility] SECRIVERSIDE [facility] HEALTHCulture, Urineon 23-00-7339Syupjoms identified Cx Nom (U)NO GROWTHSIERRA VISTA REG[facility]ENTER SECCash'o & Butcher [facility] HEALTHSpecimen Description.INDWELLING CATH URINEBON [facility] SECRIVERSIDE MEDICAL [facility]ENTER HEALTHBacteria identified Cx Nom (U)NO GROWTHSIERRA VISTA REGION[facility]ENTER SEC[facility]OS[facility]ITALY HEALTHSpecimen Description.INDWELLING CATH URINE BON [facility] SECSUBURBAN COMMUNITY HOSPITAL & BRENTWOOD HOSPITALHemoglobin and Hematocriton 57-11-7083Daazbswbko (Bld) [Volume fraction]25.5 %Low36.3 - 47.1 %[facility] SECCash'o & Butcher [facility] HEALTHHemoglobin.gastrointestinal spec 1 Ql (Stl)8.1 g/dLLow11.9 - 15.1 g/dLBON [facility] HEALTHInterpretation and review of laboratory results AbnormalBON [facility] SECRIVERS[facility] HEALTHMRI BRAIN W WO CONTRAST on 08-57-4092VPHH RIS CONSOLIDATEDPN RIS [facility] SECSUBURB[facility] Work Phone: MRI BRAIN W WO CONTRASTOrdered By: Mai Villarreal on [id number] [facility] [employer] Work Phone: Magnesiumon 67-90-4018Rkpoamcjq [Mass/Vol]1.7 mg/dL1.6 - 2.6 mg/dLBON [facility] - AVERAPOC Glucose Fingerstickon 29-22-5143Asczktl [Mass/Vol]139 mg/mTLten54 - 105 mg/dLBON [facility] HOSPITALInterpretation and review of laboratory resultsAbnormalINOVA ALEXANDRIA HOSPITALGlucose [Mass/Vol]140 mg/cFCqlf78 - 105 mg/dLBON [facility] HEALTHInterpretation and review of laboratory results AbnormalBON [facility] - AVERAGlucose [Mass/Vol]192 mg/wTYnor81 - 105 mg/dLBON [facility]OS[facility]ITALInterpretation and review of laboratory resultsAbnormalINOVA ALEXANDRIA HOSPITALBasic Metabolic Panel w/ Reflex to MGon 50-23-3948Bfaye gap [Moles/Vol]12 mmol/L9 - 17 mmol/LBON [facility] HOSPITALCalcium [Mass/Vol]7.8 mg/dLLow8.6 - 10.4 mg/dLBON [facility] HOSPITALChloride [Moles/Vol]106 mmol/L98 - 107 mmol/LBON [facility] HOSPITALCO2 [Moles/Vol]22 mmol/L20 - 31 mmol/LBON [facility] Creatinine [Mass/Vol]0.83 mg/dL0.50 - 0.90 mg/dLBON [facility]OSPITALGFR >60>60 mL/minHEALTHSOUTH MEDICAL CENTERGFR Non->60 >60 mL/minHEALTHSOUTH MEDICAL CENTERGFR/1.73 sq M.predicted MDRD (S/P/Bld) [Vol rate/Area]BON [facility] HOSPITALGlucose [Mass/Vol]205 mg/aVOwqe49 - 99 mg/dL BON [facility] HOS[facility]ITALPotassium [Moles/Vol]3.9 mmol/L3.7 - 5.3 mmol/LBON [facility] HOSPITALSodium [Moles/Vol]140 mmol/L135 - 144 mmol/LBON [facility] HOSPITALUrea nitrogen (BldV) [Mass/Vol]8 mg/dL6 - 20 mg/dLBON [facility]OSPITALC-Reactive Proteinon [id number] [Mass/Vol]141.9 mg/LHigh0.0 - 5.0 mg/L [facility] CENTERCBC with Auto Differentialon 29-79-9027Qlvidjnx Eos # <0.03BON [facility]Y [facility]ITALAbsolute Immature Granulocyte0.06BON [facility] HEALTHAbsolute Lymph #0.72LowBON SEC[facility]CTORS [facility]OSPITALY HEALTHAbsolute [place] #0.51BON [facility]CRIV[facility] HEALTHBasophils (Bld) [#/Vol]10*3/uLBON [facility] HEALTH Basophils/100 WBC (Bld)0 %0 - 2 %BON [facility] HOSPITALEosinophils/100 WBC (Bld)0 %Low1 - 4 %[facility] CENTERHematocrit (Bld) [Volume fraction]27.9 %Low36.3 - 47.1 %[facility] CENTERHemoglobin.gastrointestinal spec 1 Ql (Stl)9.2 g/dLLow11.9 - 15.1 g/dLBON SECSUBURBAN COMMUN[facility] & BRENTWOOD HOSPITALImmature granulocytes/100 WBC (Bld)1 %Pcxr7RUG [facility] HEALTHInterpretation and review of laboratory resultsAbnormalBON [facility] HOSPITALLymphocytes/100 WBC (Bld)7 %Low24 - 43 %[facility] CENTERH (RBC) [Entitic mass]27.5 pg25.2 - 33.5 pgCHESAPEAKE REGIONAL MEDICAL CENTERHC (RBC) [Mass/Vol]33.0 g/dL28.4 - 34.8 g/dL [facility] CENTERV (RBC) [Entitic vol]83.5 fL82.6 - 102.9 fLBON SECSUBURBAN COMMUN[facility]ITAL & BRENTWOOD HOSPITALMonocytes/100 WBC (Bld)5 %3 - 12 %[facility] MEDICAL CENTERNRBC Automated0.00.0 per 100 WBCSIERRA VISTA REG[facility]ENTER SECSUBURBAN COMMUNITY HOSPITAL & BRENTWOOD HOSPITALPlatelet distribution width (Bld) [Ratio]17.2 %High11.8 - 14.4 %[facility] SECRIVERSIDE [facility] HEALTHPlatelet mean volume (Bld) [Entitic vol]9.1 fL8.1 - 13.5 fLBON [facility]CRIVERSIDE [facility] HEALTHPlatelets (Bld) [#/Vol]372 10*3/uLBON SECJORGE MERCY HEALTH URBANA HOSPITALRBC (Bld) [#/Vol]3.34 10*6/uLLow3.95 - 5.11 m/uLBON [facility] HOSPITALRBC (Bld) [#/Vol]ANISOCYTOSIS PRESENTBON [facility] HOSPITALSeg Nretzdaurjs38 %High36 - 65 %[facility] HEALTHSegs Absolute9.77HighBON [facility] HOSPITALWBC (Bld) [#/Vol]11.1 10*3/uLBON [facility] HEALTHMicroscopic Urinalysison 07-07-2021 Bacteria, UAMANYAbnormalNoneBON [facility] HEALTHCasts UA10 TO 20 HYALINE Reference range defined for non-centrifuged specimen.BON [facility] Epithelial Cells UA10 TO 20BON [facility] HEALTHInterpretation and review of laboratory resultsAbnormalBON [facility] HOSPITALRBC, UA20 TO 50BON [facility] HOSPITALWBC, UA10 TO 20BON [facility] HEALTHNo Panel Informationon 18-45-4138Kwatphfjqrwtqd and review of laboratory results AbnormalBON [facility] Glucose Fingerstick on 61-97-0993Phtppoe [Mass/Vol]126 mg/bIXuwq54 - 105 mg/dLBON [facility] HEALTHInterpretation and review of laboratory resultsAbnormalBON [facility] HEALTHGlucose [Mass/Vol]163 mg/tDKhoy82 - 105 mg/dLBON [facility] HEALTHInterpretation and review of laboratory resultsAbnormalBON [facility] HEALTHGlucose [Mass/Vol]132 mg/eANqzp97 - 105 mg/dLBON [facility] HEALTHInterpretation and review of laboratory results AbnormalBON [facility] HEALTHTYPE AND SCREENon 89-00-8993AOU/RhPositiveBON [facility] HEALTHArm Band NumberBE [id number] Secours Mary Immaculate Hospitalood Bank Blood Product Expiration [id number] [facility] Centerood Bank ISBT Product Blood [id number] [facility] Centerood Bank Unit Type and RhPositiveBON [facility] Centerood product type Nom (BPU)Leukocyte Reduced Red CellBON [facility] HEALTHBlood product unit ID (Dose) [#][id number] [facility] HEALTHCrossmatch Result COMPATIBLEBON [facility] HEALTHDispense StatusTRANSFUSEDBON [facility] HEALTHExpiration Date07/09/2021,2359BON SECJORGE BARCLAYY HEALTHProduct Code Blood [id number] [facility] HEALTHTransfusion StatusOK TO TRANSFUSEBON [facility] HEALTHUnit [id number] [facility] HEALTHUnit Issue Date/Time [id number] [facility] HEALTHBON [facility] HEALTHUrinalysis with Reflex to Cultureon [id number] UrineNegativeNEGATIVEBON [facility] HEALTHColor, UAYellowYellowBON [facility] HEALTHGlucose, Ur1+AbnormalNEGATIVE BON [facility] HEALTHInterpretation and review of laboratory resultsAbnormal B[facility] HEALTHKetones Ql (U)TRACEAbnormalNEGATIVEBON [facility] HEALTHLeukocyte esterase Test strip Ql (U)NegativeNEGATIVEBON [facility] HEALTHNitrite, UrineNegativeNEGATIVEBON [facility] HEALTHpH, UA5.5B[facility] HEALTHProtein, UANegativeNEGATIVEBON [facility] HEALTHSpecific Mattawamkeag, UA1.024B[facility] HEALTHTurbidity UAClearClearBON [facility] HEALTHUrine HgbMODERATEAbnormalNEGATIVEBON [facility] HEALTHUrobilinogen, UrineNormalNormalBON [facility] HEALTHBON [facility] HEALTHBasic Metabolic Panel w/ Reflex to MGon 76-37-6616Vzbon gap [Moles/Vol]8 mmol/LLow9 - 17 mmol/L BON [...] (S/P/Bld) [Vol rate/Area][facility] HEALTHGlucose [Mass/Vol]138 mg/vZWcsx23 - 99 mg/dL [facility] HEALTHInterpretation and review of laboratory resultsAbnormal [facility] HEALTHPotassium [Moles/Vol]3.2 mmol/LLow3.7 - 5.3 mmol/LBON [facility] HEALTHSodium [Moles/Vol]133 mmol/LVvj993 - 144 mmol/LBON [facility] HEALTHUrea nitrogen (BldV) [Mass/Vol]7 mg/dL6 - 20 mg/dLBON [facility]ITALY HEALTHBON [facility] HEALTHBlood Gas, Arterialon 65-45-7219Xmxvh Test INFORMATION NOT PROVIDEDBON [facility]OS[facility]ITALY HEALTHCarboxyhemoglobin1.1 %0 - 5 %BON [facility] TJKVVBYGE4348%B[facility] HEALTHHCO3 (Bld) [Moles/Vol]22.7 mmol/L22 - 27 mmol/LBON [facility] HEALTHOxygen saturation in Blood99.6 %94 - 100 %[facility] HEALTHpCO2, Dvrszssh79.4LowBON [facility] HEALTHpH, Arterial7.529HighBON [facility] HEALTHpO2, Iujfzsws928.0HighBON [facility] HEALTHPositive Base Excess, Art0.5 mmol/L0.0 - 2.0 mmol/LBON [facility] HEALTHPt Temp37.0[facility] HEALTHC-Reactive Proteinon [id number] [Mass/Vol]183.8 mg/LHigh0.0 - 5.0 mg/LBON [facility] HEALTHInterpretation and review of laboratory resultsAbnormalBON SECOU[facility]ITALY HEALTHB[facility]ITALY HEALTHCBC with Auto Differentialon [id number] Eos #0.25[facility] HEALTHAbsolute Immature Granulocyte0.04[facility] HEALTHAbsolute Lymph # 1.52[facility] HEALTHAbsolute [place] #0.43[facility]ITALY HEALTHBasophils (Bld) [#/Vol]10*3/uLBON SECOURS DOCTORS HOSPITALY HEALTHBasophils/100 WBC (Bld)0 %0 - 2 % [facility] HOSPITALEosinophils/100 WBC (Bld)3 %1 - 4 %[facility] UR[facility]NA HOSPITALHematocrit (Bld) [Volume fraction]27.5 %Low36.3 - 47.1 %[facility] HOSPITALHemoglobin.gastrointestinal spec 1 Ql (Stl)8.5 g/dLLow11.9 - 15.1 g/dLBON SECOURS MERCY HEALTH URBANA HOSPITALImmature granulocytes/100 WBC (Bld)1 %Brgc9ORT [facility] HOSPITALInterpretation and review of laboratory resultsAbnormalBON SECSUBURBAN [facility] & BRENTWOOD HOSPITALLymphocytes/100 WBC (Bld)20 %Low24 - 43 %[facility] (RBC) [Entitic mass]26.0 pg25.2 - 33.5 pgBON SECOHIOHEALTH SHELBY HOSPITALHC (RBC) [Mass/Vol] 30.9 g/dL28.4 - 34.8 g/dLBON SECOHIOHEALTH SHELBY HOSPITALV (RBC) [Entitic vol]84.1 fL 82.6 - 102.9 fLBON SECSUBURBAN COMMUNITY HOSPITAL & BRENTWOOD HOSPITALMonocytes/100 WBC (Bld)6 %3 - 12 %ARASELI SECSUBURBAN COMM[facility] & BRENTWOOD HOSPITALNRBC Automated0.00.0 per 100 WBCHEALTHSOUTH [facility]ENTER Platelet distribution width (Bld) [Ratio]18.2 %High11.8 - 14.4 %[facility]ON SECSUBURB[facility] & BRENTWOOD HOSPITALPlatelet mean volume (Bld) [Entitic vol]9.4 fL8.1 - 13.5 fLBON SECOURS [facility] HEALTHPlatelets (Bld) [#/Vol]378 10*3/uLBON [facility] RBC (Bld) [#/Vol]3.27 10*6/uLLow3.95 - 5.11 m/uLBON [facility] HEALTH URBANA HOSPITALRBC (Bld) [#/Vol]ANISOCYTOSIS PRESENTBON SECSUBURBAN COMMUNITY HOSPITAL & BRENTWOOD HOSPITALSeg Zamlplyfnkm63 %High 36 - 65 %[facility]Y HEALTHSegs Absolute5.41[facility] URBANA HOSPITALWBC (Bld) [#/Vol]7.7 10*3/uLBON SECSANF[facility] HEALTHCalcium, Ionizedon [id number] [Moles/Vol]1.14 mmol/L1.13 - 1.33 mmol/LBON [facility] HEALTHCalcium [Moles/Vol]1.13 mmol/L1.13 - 1.33 mmol/LBON [facility] HEALTHChloride, Whole Bloodon [id number] [Moles/Vol]109 mmol/L98 - 110 mmol/LBON [facility] HEALTHCulture, Blood 1on [id number] identified Cx Nom (Unsp spec)PositiveAbnormChildren's Hospital of Richmond at VCUBacteria identified Cx Nom (Unsp spec)DIRECT GRAM STAIN FROM BOTTLE: GRAM POSITIVE COCCI IN [facility]Bacteria identified Cx Nom (Unsp spec)STAPHYLOCOCCUS AUREUS For susceptibility, refer to previous culture.AbnormalHEALTHSOUTH MEDICAL CENTERBacteria identified Cx Nom (Unsp spec)(NOTE) Direct Gram Stain from bottle result called to and read back by: RICH Miranda 07/05/21 0115BSTAFFORD HOSPITALInterpretation and review of laboratory resultsAbnoMountain View Regional Medical CenterSpecial RequestsR HAND 10MLHEALTHSOUTH MEDICAL CENTERSpecimen Description .[facility]ITALBacteria identified Cx Nom (Unsp spec)PositiveAbnormChildren's Hospital of Richmond at VCUBacteria identified Cx Nom (Unsp spec)DIRECT GRAM STAIN FROM BOTTLE: GRAM POSITIVE COCCI IN [facility]ENTERBacteria identified Cx Nom (Unsp spec)STAPHYLOCOCCUS AUREUS This isolate is methicillin susceptible.AbnormalHEALTHSOUTH MEDICAL CENTERBacteria identified Cx Nom (Unsp spec)(NOTE) Direct Gram Stain from bottle result called to and read back by: RICH Miranda RN AT 0020 ON 07/05/21[facility] Interpretation and review of laboratory resultsAbnoMountain View Regional Medical Center Special RequestsL HAND 20MLWYTHE [facility] HEALTHSpecimen Description.[facility]ALTH HEALTHFLUORO FOR SURGICAL PROCEDURESon 49-42-7952PBIJ RIS CONSOLIDATEDGlucose, Whole Bloodon 56-35-8633Ouvsyol [Mass/Vol]131 mg/yCWonw56 - 105 mg/dLBON SECOURS DOCTORS HOSPITALY HEALTHMagnesiumon 10-85-7175Uyunqlmrp [Mass/Vol]2.3 mg/dL1.6 - 2.6 mg/dLB[facility]Y HEALTHNo Panel Informationon 82-28-4814KPH [facility] HEALTHInterpretation and review of laboratory resultsAbnormalBON SECOURS [facility]CTORS [facility]OSPITALY HEALTHB[facility] HEALTHOPEN HEART PANELon 61-36-1876Upddi TestINFORMATION NOT PROVIDEDBON SEC[facility]RS [facility]ORS [facility]OSPITALY HEALTHCarboxyhemoglobin0.8 %0 - 5 %[facility] HEALTHChloride [Moles/Vol]108 mmol/L98 - 110 mmol/LBON [facility] LTNNXYEOJ020%[facility] HEALTHGlucose [Mass/Vol]207 mg/qYJlgu82 - 105 mg/dLBON [facility]OU[facility]CTORS HOSPITALY HEALTHHCO3 (Bld) [Moles/Vol]21.4 mmol/LLow22 - 27 mmol/L [facility] HEALTHHematocrit (Bld) [Volume fraction]30.6 %Low36.3 - 47.1 % [facility] HEALTHHemoglobin.gastrointestinal spec 1 Ql (Stl)9.9LowB[facility] HEALTHInterpretation and review of laboratory resultsAbnormalBON SECOURS [facility]ORS [facility]OSPITALY HEALTHNegative Base Excess, Art2.3 mmol/LHigh0.0 - 2.0 mmol/LBON [facility] HEALTHOxygen saturation in Blood99.4 %94 - 100 %[facility] HEALTHpCO2, Iokrgipx77.8[facility] HEALTHpH, Arterial7.406[facility] HEALTHpO2, Gecjqtuz261.0HighB[facility] HEALTHPotassium [Moles/Vol] 3.7 mmol/L3.6 - 5.0 mmol/LBON [facility] HEALTHPt Temp35.9[facility] HEALTHSodium [Moles/Vol]140 mmol/L136 - 145 mmol/LBON [facility]ORS HOSPITALY HEALTHOpen Heart H&Hon 05-39-0257Yppgflausj (Bld) [Volume fraction]21.0 %Low36.3 - 47.1 % BON [email or web address] [facility]ERSON HOSPITALHemoglobin.gastrointestinal spec 1 Ql (Stl)6.7Critically lowBON [facility] Glucose Fingerstickon 08-74-1033Hkvmpuv [Mass/Vol]192 mg/nZIves88 - 105 mg/dLBON SECSUBURB[facility] BRENTWOOD HOSPITALInterpretation and review of laboratory resultsAbnormalBON [facility]ITALBON [facility] URBA[facility] HOSPITALGlucose [Mass/Vol]136 mg/jKSxvf85 - 105 mg/dLBON [facility] HEALTH Interpretation and review of laboratory resultsAbnormalHEALTHSOUTH MEDICAL CENTER BON [facility] URBANA HOSPITALGlucose [Mass/Vol]132 mg/nLAwdt12 - 105 mg/dLBON SECRIVERSIDE [facility] HEALTHInterpretation and review of laboratory resultsAbnormalFORT [facility]VOIR [facility] SECRIVERSIDE MEDICAL CENTER HEALTHPotassium, Whole Bloodon 47-30-9784Tfssujsnb [Moles/Vol]3.6 mmol/L3.6 - 5.0 mmol/LBON SECPROVIDENCE ST. JOSEPH'S HOSPITALMakana Solutions [facility] HOSPITALSodium, Whole Bloodon 24-78-4016Qjixqt [Moles/Vol]140 mmol/L136 - 145 mmol/LBON SECAL[facility] eVestment [facility] HOSPITALBasic Metabolic Panel w/ Reflex to MGon 19-19-7573Xflpp gap [Moles/Vol]10 mmol/L9 - 17 mmol/LBON [facility] HEALTHCalcium [Mass/Vol]8.4 mg/dLLow8.6 - 10.4 mg/dLB[facility]ITALY HEALTHChloride [Moles/Vol]101 mmol/L98 - 107 mmol/L BON [facility] HEALTHCO2 [Moles/Vol]27 mmol/L20 - 31 mmol/LBON [facility] UR[facility] HOSPITALCreatinine [Mass/Vol]0.79 mg/dL0.50 - 0.90 mg/dLBON [facility]ITALY HEALTH GFR >60>60 mL/minBON SECOURS In Hand GuidesY HEALTHGFR Non->60>60 mL/minBON SECOURS In Hand Guides HEALTHGFR/1.73 sq M.predicted MDRD (S/P/Bld) [Vol rate/Area]BON SECTapulous HEALTHGlucose [Mass/Vol]136 mg/dLHigh 70 - 99 mg/dLBON [facility] HOSPITALInterpretation and review of laboratory resultsAbnormalBON SECSUBURBAN COMM[facility]ITAL & BRENTWOOD HOSPITALPotassium [Moles/Vol]3.1 mmol/LLow3.7 - 5.3 mmol/LBON SECSUBURBAN COMMUN[facility] HOSPITAL & BRENTWOOD HOSPITALSodium [Moles/Vol]138 mmol/L135 - 144 mmol/L BON [facility] HOSPITALUrea nitrogen (BldV) [Mass/Vol]7 mg/dL6 - 20 mg/dLBON SECEDGERTON HOSPITAL AND HEALTH SERVICESC-Reactive Proteinon 23-97-8820BXT [Mass/Vol]186.3 mg/LHigh0.0 - 5.0 mg/LBON SECSUBURBAN COMM[facility] & BRENTWOOD HOSPITALInterpretation and review of laboratory resultsAbnormalBON [facility] - AVERACBC with Auto Differentialon 31-92-5280Pxjpzvil Eos #0.15[facility] UR[facility]NA HOSPITALAbsolute Immature Granulocyte0.06[facility] UR[facility] HOSPITALAbsolute Lymph # 2.56B[facility] URBANA HOSPITALAbsolute [place] #0.43BON SECSUBURBAN COMM[facility]ITAL & BRENTWOOD HOSPITALBasophils (Bld) [#/Vol]10*3/uLBON [facility] URBANA HOSPITALBasophils/100 WBC (Bld)0 %0 - 2 % BON [facility] HOSPITALEosinophils/100 WBC (Bld)2 %1 - 4 %HEALTHS[facility] MEDICAL CENTERHematocrit (Bld) [Volume fraction]24.6 %Low36.3 - 47.1 %[facility] MEDICAL CENTERHemoglobin.gastrointestinal spec 1 Ql (Stl)7.9 g/dLLow11.9 - 15.1 g/dLBON SECSUBURBAN COMMUNITY HOSPITAL & BRENTWOOD HOSPITALImmature granulocytes/100 WBC (Bld)1 %Wcbg6TKR [facility] HOSPITALInterpretation and review of laboratory resultsAbnormalBON [facility] HOSPITALLymphocytes/100 WBC (Bld)26 %24 - 43 %BON [facility] (RBC) [Entitic mass]26.5 pg25.2 - 33.5 pgBON [facility]TY [facility]OS[facility] - CINCINNATIHC (RBC) [Mass/Vol] 32.1 g/dL28.4 - 34.8 g/dLBON SECRIVERSIDE [facility]ENTER HEALTHMCV (RBC) [Entitic vol]82.6 fL 82.6 - 102.9 fLHEALTHSOUTH MEDICAL CENTERMonocytes/100 WBC (Bld)4 %3 - 12 %BON [facility] HOSPITALNRBC Automated0.00.0 per 100 WBCHEALTHSOUTH MEDICAL CENTER Platelet distribution width (Bld) [Ratio]17.5 %High11.8 - 14.4 %BON SECSUBURBAN [facility]ITAL & BRENTWOOD HOSPITALPlatelet mean volume (Bld) [Entitic vol]9.7 fL8.1 - 13.5 fLBON SECSUBURBAN COMMUNITY HOSPITAL & BRENTWOOD HOSPITALPlatelets (Bld) [#/Vol]341 10*3/uLBON [facility] RBC (Bld) [#/Vol]2.98 10*6/uLLow3.95 - 5.11 m/uLHEALTHSOUTH MEDICAL CENTERRBC (Bld) [#/Vol]ANISOCYTOSIS PRESENTBON [facility]IST HOSPITALSeg Repfwtlwmxz30 %High 36 - 65 %BON [facility] HOSPITALSegs Absolute6.79BON SECSUBURBAN COMM[facility] H[facility]ITAL & BRENTWOOD HOSPITALWBC (Bld) [#/Vol]10.0 10*3/uLBON [facility] Culture, Blood 1on 85-74-1507Xalewguy identified Cx Nom (Unsp spec)Positive AbnormalHEALTHSOUTH MEDICAL CENTERBacteria identified Cx Nom (Unsp spec)DIRECT GRAM STAIN FROM BOTTLE: GRAM POSITIVE COCCI IN [facility] Bacteria identified Cx Nom (Unsp spec)STAPHYLOCOCCUS AUREUS This isolate is methicillin susceptible.AbnormalHEALTHSOUTH MEDICAL CENTERBacteria identified Cx Nom (Unsp spec)(NOTE) Direct Gram Stain from bottle result called to and read back by: VIRGIE Parker AT 0225 ON 07/04/21[facility] CENTERInterpretation and review of laboratory resultsAbnormalHEALTHSOUTH MEDICAL CENTERSpecial Requests LT HAND 2MLHEALTHSOUTH MEDICAL CENTERSpecimen Description.BLOODINOVA ALEXANDRIA HOSPITALFL MODIFIED BARIUM SWALLOW W VIDEOon 07-05-2021 PN RIS CONSOLIDATEDPN RIS CONSOLIDATEDHEALTHSOUTH MEDICAL CENTER Work Phone: [facility] Work Phone: radiology Study observation (narrative)ARASELI [place] [facility] [place] Phone: MRI BRAIN W WO CONTRASTon 86-89-4236Pqghudsfj Study observation (narrative)[place] [facility] [place] Phone: MRI CERVICAL SPINE W WO CONTRASTon 87-07-9337PDKJ RIS CONSOLIDATEDMHPN RIS [facility] [employer] Work Phone: mrI CERVICAL SPINE W WO CONTRASTOrdered By: Fredi Ramirez on 59-25-0846PWA [facility] [facility] [place] Phone: Magnesiumon 18-47-7343Mbhobyjzs [Mass/Vol]1.9 mg/dL1.6 - 2.6 mg/dLBON [facility] - AVERAMyelin Basic Protein, CSFon 86-85-3146Vjjkrc Basic Protein, CSF3.3 ng/mL0.00 - 5.50 ng/mLBON [facility] AV[facility]APO Glucose Fingerstickon 07-05-2021 Glucose [Mass/Vol]102 mg/dL65 - 105 mg/dLBON [facility] - AVERAGlucose [Mass/Vol]185 mg/yFGnkr61 - 105 mg/dLBON [facility] PRESBYTERIANBiomeasureInterpretation and review of laboratory resultsAbnormalINOVA ALEXANDRIA HOSPITALGlucose [Mass/Vol]134 mg/sWZccl16 - 105 mg/dLBON [facility] VALLEY HOSPITALCash'o & Butcher DOCTORS HOSPITALBiomeasureInterpretation and review of laboratory resultsAbnormalINOVA ALEXANDRIA HOSPITALGlucose [Mass/Vol]147 mg/gMCndr27 - 105 mg/dLBON [facility] VALLEY HOSPITALCash'o & Butcher DOCTORS HOSPITALBiomeasureInterpretation and review of laboratory results AbnormalBON [facility] - AVERAPotassiumon 07-05-2021 Potassium [Moles/Vol]3.8 mmol/L3.7 - 5.3 mmol/LBON [facility] - AVERABasic Metabolic Panel w/ Reflex to MGon 72-24-7202Rmqjp gap [Moles/Vol]10 mmol/L9 - 17 mmol/LBON [facility] HEALTHCalcium [Mass/Vol]8.0 mg/dLLow8.6 - 10.4 mg/dLBON [facility] HEALTHChloride [Moles/Vol]102 mmol/L98 - 107 mmol/LBON [facility] HEALTHCO2 [Moles/Vol]26 mmol/L20 - 31 mmol/LBON [facility] HEALTHCreatinine [Mass/Vol]0.72 mg/dL0.50 - 0.90 mg/dLBON [facility] HEALTHGFR >60>60 mL/minBON [facility] HEALTHGFR Non- >60>60 mL/minBON SEC[facility]CTORS HOSPITALY HEALTHGFR/1.73 sq M.predicted MDRD (S/P/Bld) [Vol rate/Area][facility]ITALY HEALTHGlucose [Mass/Vol]122 mg/aBXkgf31 - 99 mg/dLBON [facility]RS [facility]CTORS [facility]OSPITALY HEALTHInterpretation and review of laboratory resultsAbnormalBON [facility] HEALTHPotassium [Moles/Vol]3.5 mmol/LLow3.7 - 5.3 mmol/LBON [facility] HEALTHSodium [Moles/Vol]138 mmol/L135 - 144 mmol/LBON [facility]ORS HOSPITALY HEALTHUrea nitrogen (BldV) [Mass/Vol]8 mg/dL6 - 20 mg/dLBON SECOURS DOCTORS HOSPITALY [facility] HOSPITALBON [facility] URBANA HOSPITALC-Reactive Proteinon 30-02-3032OHW [Mass/Vol]191.8 mg/LHigh0.0 - 5.0 mg/LBON [facility] HEALTH Interpretation and review of laboratory resultsAbnormalBON [facility] HEALTH [facility]OSPITALY [facility] HOSPITALCBC with Auto Differentialon 46-61-5392Esojrnrw Eos # 0.18[facility] HEALTHAbsolute Immature Granulocyte0.05[facility] HEALTHAbsolute Lymph #2.24[facility] HEALTHAbsolute [place] #0.55[facility] HEALTHBasophils (Bld) [#/Vol]10*3/uLBON [facility] HEALTHBasophils/100 WBC (Bld)0 %0 - 2 %[facility] HEALTHEosinophils/100 WBC (Bld)2 %1 - 4 % BON SECJORGE [facility] HEALTHHematocrit (Bld) [Volume fraction]22.8 %Low36.3 - 47.1 % [facility] HEALTHHemoglobin.gastrointestinal spec 1 Ql (Stl)7.4 g/dLLow 11.9 - 15.1 g/dLBON SECJORGE MERCY HEALTH URBANA HOSPITALImmature granulocytes/100 WBC (Bld)1 % Txsd7MZT [facility] HEALTHInterpretation and review of laboratory results AbnormalBON SECSUBURBAN COMMUNITY HOSPITAL & BRENTWOOD HOSPITALLymphocytes/100 WBC (Bld)22 %Low24 - 43 %BON [facility] (RBC) [Entitic mass]26.5 pg25.2 - 33.5 pgSIERRA VISTA REGIONAL [facility]ENTER SECOHIOHEALTH SHELBY HOSPITALHC (RBC) [Mass/Vol]32.5 g/dL28.4 - 34.8 g/dLBON SECOHIOHEALTH SHELBY HOSPITALV (RBC) [Entitic vol]81.7 fLLow82.6 - 102.9 fLHEALTHSOUTH MEDICAL CENTER Monocytes/100 WBC (Bld)5 %3 - 12 %Insmed SECCash'o & Butcher [facility] HEALTHNRBC Automated0.00.0 per 100 WBCBON [facility] HEALTHPlatelet distribution width (Bld) [Ratio]16.9 %High11.8 - 14.4 %[facility] HEALTHPlatelet mean volume (Bld) [Entitic vol]9.0 fL8.1 - 13.5 fLSIERRA VISTA REGIONAL HEALTH CENTER SECJORGE [facility] HEALTHPlatelets (Bld) [#/Vol]231 10*3/uLBON SECCash'o & Butcher [facility] HEALTHRBC (Bld) [#/Vol]2.79 10*6/uLLow3.95 - 5.11 m/uL [facility] HEALTHRBC (Bld) [#/Vol]ANISOCYTOSIS PRESENTBON [facility] HOSPITALSeg Fsvcrbqcdvd92 %High36 - 65 %[facility]ITALY HEALTHSegs Absolute7.32 [facility] HEALTHWBC (Bld) [#/Vol]10.4 10*3/uLBON [facility] HEALTHSIERRA [facility] HEALTHCulture, Blood 1on 61-68-5976Vhaofsvx identified Cx Nom (Unsp spec)PositiveAbnormalBON [facility] HEALTHBacteria identified Cx Nom (Unsp spec)DIRECT GRAM STAIN FROM BOTTLE: GRAM POSITIVE COCCI IN [facility] CENTERBacteria identified Cx Nom (Unsp spec)Staphylococcus aureus Detected: mecA/C and MREJ Not Detected Methodology- Polymerase Chain Reaction (PCR)[facility] CENTERBacteria identified Cx Nom (Unsp spec) STAPHYLOCOCCUS AUREUSAbnoMountain View Regional Medical CenterBacteria identified Cx Nom (Unsp spec)(NOTE) Direct Gram Stain from bottle and Polymerase Chain Reaction (PCR) results called to and readback by: VIRGIE Joaquin on 07/03/21 at 7:45[facility] CENTERInterpretation and review of laboratory resultsAbCumberland Hospitalial RequestsL HAND 1 [facility] Centerimen Description.[facility] HOSPITALMISCELLANEOUS TESTINGon 39-69-4700Vuah Out ReportPERFORMED AT LEWIS AND [facility] HOSPITALTest NameMAYO ENC2 CSFINOVA ALEXANDRIA HOSPITALMRI CERVICAL SPINE W WO CONTRASTon 44-59-2758Ejtcncfom Study observation (narrative)[facility] Work Phone: Magnesiumon 19-46-0580Sadkihxfx [Mass/Vol]1.8 mg/dL1.6 - 2.6 mg/dLBON [facility] - AVERAPOC Glucose Fingerstickon 48-08-2210Qwbdjfm [Mass/Vol]113 mg/xOFfsz52 - 105 mg/dLBON [facility] HOSPITALInterpretation and review of laboratory resultsAbnormHealthSouth Medical CenterGlucose [Mass/Vol]188 mg/nYMkok41 - 105 mg/dLBON [facility] HOSPITALInterpretation and review of laboratory results [facility] CenterGlucose [Mass/Vol]118 mg/nROshc07 - 105 mg/dLBON [facility] HOSPITALInterpretation and review of laboratory resultsAbSturgis Regional Hospital Glucose [Mass/Vol]135 mg/eHWurj34 - 105 mg/dLBON [facility] Interpretation and review of laboratory resultsAbnormalHEALTHSOUTH MEDICAL CENTER BON [facility] HOS[facility]ITALBasic Metabolic Panel w/ Reflex to MGon 30-59-7582Gaohe gap [Moles/Vol]11 mmol/L9 - 17 mmol/LBON [facility] HOSPITALCalcium [Mass/Vol] 8.3 mg/dLLow8.6 - 10.4 mg/dLBON SECSUBURBAN COMMUNITY HOSPITAL & BRENTWOOD HOSPITALChloride [Moles/Vol]98 mmol/L98 - 107 mmol/LBON SECSUBURBAN COMMUNITY HOSPITAL & BRENTWOOD HOSPITALCO2 [Moles/Vol]25 mmol/L20 - 31 mmol/LBON [facility] HOSPITALCreatinine [Mass/Vol]0.81 mg/dL0.50 - 0.90 mg/dL [facility] CENTERGFR >60>60 mL/minHEALTHSOUTH MEDICAL CENTERGFR Non->60>60 mL/minHEALTHSOUTH MEDICAL CENTERGFR/1.73 sq M.predicted MDRD (S/P/Bld) [Vol rate/Area][facility] CENTERGlucose [Mass/Vol]108 mg/qZFvzz34 - 99 mg/dLBON [facility] HOSPITALInterpretation and review of laboratory resultsAbnormalHEALTHSOUTH MEDICAL CENTERPotassium [Moles/Vol]2.9 mmol/LCritically low3.7 - 5.3 mmol/LBON [facility] Sodium [Moles/Vol]134 mmol/DGnz913 - 144 mmol/LBON [facility] HOSPITALUrea nitrogen (BldV) [Mass/Vol]7 mg/dL6 - 20 mg/dLBON [facility] - AVERAC-Reactive Proteinon 17-32-1884MHF [Mass/Vol]166.3 mg/LHigh0.0 - 5.0 mg/LBON [facility] HOSPITALInterpretation and review of laboratory results AbnormalBON [facility]NER COMM[facility]OR[facility] HOSPITAL - AVERACBC with Auto Differentialon 51-03-0201Xgyvuutb Eos #0.19[facility]OS[facility]ITALY [facility] HOSPITALAbsolute Immature Granulocyte0.09B[facility]OSPITALY [facility] HOSPITALAbsolute Lymph #2.40B[facility]ITALY HEALTHAbsolute [place] #0.64BON [facility] HOSPITALOURS [facility] URBANA HOSPITALBasophils (Bld) [#/Vol] 10*3/uLBON [facility] HOSPITALBasophils/100 WBC (Bld)0 %0 - 2 %[facility] MED[facility] CENTEREosinophils/100 WBC (Bld)1 %1 - 4 %[facility] Hematocrit (Bld) [Volume fraction]26.1 %Low36.3 - 47.1 %[facility] Hemoglobin.gastrointestinal spec 1 Ql (Stl)8.4 g/dLLow11.9 - 15.1 g/dLBON [facility] HOSPITALImmature granulocytes/100 WBC (Bld)1 %Rgbe1AUIHEALTHSOUTH MEDICAL CENTERInterpretation and review of laboratory resultsAbnormalBON [facility] HOSPITALLymphocytes/100 WBC (Bld)18 %Low24 - 43 %[facility] CENTERH (RBC) [Entitic mass]26.1 pg25.2 - 33.5 pgBON [facility]OSP[facility] - CINCINNATIHC (RBC) [Mass/Vol] 32.2 g/dL28.4 - 34.8 g/dLBON [facility] (RBC) [Entitic vol]81.1 fL Low82.6 - 102.9 fLHEALTHSOUTH MEDICAL CENTERMonocytes/100 WBC (Bld)5 %3 - 12 %[facility] MEDICAL CENTERNRBC Automated0.00.0 per 100 WBCHEALTHSOUTH MEDICAL CENTER Platelet distribution width (Bld) [Ratio]16.5 %High11.8 - 14.4 %[facility] MEDICAL CENTERPlatelet mean volume (Bld) [Entitic vol]8.8 fL8.1 - 13.5 fLHEALTHSOUTH MEDICAL CENTERPlatelets (Bld) [#/Vol]261 10*3/uLBON [facility] RBC (Bld) [#/Vol]3.22 10*6/uLLow3.95 - 5.11 m/uLBON [facility] METHODIST HOSPITALRBC (Bld) [#/Vol]ANISOCYTOSIS PRESENTHEALTHSOUTH MEDICAL CENTERSeg Hqhtnxcnlgc50 %High 36 - 65 %[facility] CENTERSegs Ihpsxegw74.31HighHEALTHSOUTH MEDICAL CENTER WBC (Bld) [#/Vol]13.6 10*3/uLHighINOVA ALEXANDRIA HOSPITALCulture, Blood 1on 86-61-0182Tjrzrlsy identified Cx Nom (Unsp spec) PositiveAbnormChildren's Hospital of Richmond at VCUBacteria identified Cx Nom (Unsp spec) DIRECT GRAM STAIN FROM BOTTLE: GRAM POSITIVE COCCI IN [facility] CENTERBacteria identified Cx Nom (Unsp spec)STAPHYLOCOCCUS AUREUS This isolate is methicillin susceptible.[facility] HospitalBacteria identified Cx Nom (Unsp spec)(NOTE) Direct Gram Stain from bottle result called to and read back by: VIRGIE Noland at 2200 on 07.01.2021 [facility] Interpretation and review of laboratory resultsAbWythe County Community Hospital Specimen Description.[facility] HOSPITALECHO Complete 2D W Doppler W Coloron 50-70-7235KMND STV CPAUVA [facility] Work Phone: eCHO Complete 2D W Doppler W ColorOrdered By: Sintia Salazar on 13-01-9801ZFRSTAFFORD HOSPITAL Work Phone: fl MODIFIED BARIUM SWALLOW W VIDEOon 13-52-1184FZJX RIS [facility] RIS [facility] Work Phone: radiology Study observation (narrative)[facility] Work Phone: fl MODIFIED BARIUM SWALLOW W VIDEOOrdered By: Rufus Burnette on 31-28-8190SXGSTAFFORD HOSPITAL Work Phone: Hemoglobin and Hematocriton 23-60-6638Vabeskqruo (Bld) [Volume fraction]24.2 %Low36.3 - 47.1 %[facility] Hemoglobin.gastrointestinal spec 1 Ql (Stl)7.8 g/dLLow11.9 - 15.1 g/dLBON [facility] HOSPITALInterpretation and review of laboratory resultsAbSturgis Regional HospitalHerpes simplex virus PCRon [id number], PCRNot [facility] Magnesiumon 53-18-8659Bkjxtmxdw [Mass/Vol]2.0 mg/dL1.6 - 2.6 mg/dLBON [facility] BONE SCAN 3 PHASEon 62-34-1665ZZDKSOUTHERN TENNESSEE [facility]IONAL [facility] Work Phone: radiology Study observation (narrative)[facility] [employer] Work Phone: nm BONE SCAN 3 PHASEOrdered By: Mark Anthony Duke on 34-77-4146BKY [facility] Work Phone: poc Glucose Fingerstickon 38-50-4002Xgdpydn [Mass/Vol] 146 mg/aZDxaf10 - 105 mg/dLBON [facility] HOSPITALInterpretation and review of laboratory resultsAbnormHealthSouth Medical Center Glucose [Mass/Vol]108 mg/tZRife98 - 105 mg/dLBON [facility] Interpretation and review of laboratory resultsAbnormChildren's Hospital of [facility] at [facility] BON [facility] HOSPITALGlucose [Mass/Vol]168 mg/iMCbmy18 - 105 mg/dLBON [facility] HOSPITALInterpretation and review of laboratory resultsAbnormalINOVA ALEXANDRIA HOSPITALGlucose [Mass/Vol]111 mg/yNBchp26 - 105 mg/dLBON [facility] HOSPITALInterpretation and review of laboratory results AbnormalBON [facility] - AVERAPotassiumon 07-03-2021 Interpretation and review of laboratory resultsAbnormChildren[facility] Potassium [Moles/Vol]3.4 mmol/LLow3.7 - 5.3 mmol/LBON [facility] - AVERAXR CERVICAL SPINE FLEXION AND EXTENSIONon [id number] [facility] Work Phone: radiology Study observation (narrative)[facility] Work Phone: xr CERVICAL SPINE FLEXION AND EXTENSIONOrdered By: Chanda Garland on [id number] [facility] Work Phone: Basic Metabolic Panel w/ Reflex to MGon 07-02-2021 Anion gap [Moles/Vol]11 mmol/L9 - 17 mmol/LBON [facility] HOSPITALY HEALTHCalcium [Mass/Vol]8.0 mg/dLLow8.6 - 10.4 mg/dLBON SECOU[facility] DOCTORS HOSPITALY HEALTHChloride [Moles/Vol]98 mmol/L98 - 107 mmol/LBON [facility] HEALTHCO2 [Moles/Vol]25 mmol/L20 - 31 mmol/LBON [facility] HEALTHCreatinine [Mass/Vol]0.66 mg/dL0.50 - 0.90 mg/dLBON [facility]CRIVERS[facility] HEALTHGFR >60>60 mL/minBON [facility] HOSPITALGFR Non->60>60 mL/minWYTHE COUNTY [facility] HEALTH GFR/1.73 sq M.predicted MDRD (S/P/Bld) [Vol rate/Area][facility] Glucose [Mass/Vol]67 mg/dLLow70 - 99 mg/dLBON [facility]OSPITALInterpretation and review of laboratory resultsAbnormalBON [facility] HOSPITALPotassium [Moles/Vol]2.9 mmol/LCritically low3.7 - 5.3 mmol/LBON [facility] Sodium [Moles/Vol]134 mmol/YWiu573 - 144 mmol/LBON [facility]UR[facility] & BRENTWOOD HOSPITALUrea nitrogen (BldV) [Mass/Vol]9 mg/dL6 - 20 mg/dLBON SECEDGERTON HOSPITAL AND HEALTH SERVICESC-Reactive Proteinon [id number] [Mass/Vol]61.4 mg/LHigh0.0 - 5.0 mg/LBON [facility] HEALTHInterpretation and review of laboratory results AbnormalBON SECSUBURB[facility] & BRENTWOOD HOSPITALBON [facility] & BRENTWOOD HOSPITALCBC with Auto Differentialon [id number] Eos #0.36B[facility] HEALTHAbsolute Immature Granulocyte0.11B[facility]ITALY HEALTHAbsolute Lymph #3.45[facility] HEALTHAbsolute [place] #0.69BON SECOURS [facility]OSPITALBasophils (Bld) [#/Vol] 10*3/uLBON [facility]ORS [facility]OSPITALUNIVERSITY [facility] MEDICAL CENTERBasophils/100 WBC (Bld)0 %0 - 2 %[facility]ENTEREosinophils/100 WBC (Bld)2 %1 - 4 %[facility] Hematocrit (Bld) [Volume fraction]28.2 %Low36.3 - 47.1 %[facility] Hemoglobin.gastrointestinal spec 1 Ql (Stl)9.0 g/dLLow11.9 - 15.1 g/dLBON [facility] HOSPITALImmature granulocytes/100 WBC (Bld)1 %Fzul3XUFHEALTHSOUTH MEDICAL CENTERInterpretation and review of laboratory resultsAbnormalHEALTHSOUTH MEDICAL CENTERLymphocytes/100 WBC (Bld)21 %Low24 - 43 %[facility]ENTERH (RBC) [Entitic mass]25.9 pg25.2 - 33.5 pgCHESAPEAKE REGIONAL MEDICAL CENTERHC (RBC) [Mass/Vol] 31.9 g/dL28.4 - 34.8 g/dLBON [facility] (RBC) [Entitic vol]81.3 fL Low82.6 - 102.9 fLHEALTHSOUTH MEDICAL CENTERMonocytes/100 WBC (Bld)4 %3 - 12 %[facility] CENTERNRBC Automated0.00.0 per 100 WBCHEALTHSOUTH MEDICAL CENTER Platelet distribution width (Bld) [Ratio]16.3 %High11.8 - 14.4 %[facility] CENTERPlatelet mean volume (Bld) [Entitic vol]8.8 fL8.1 - 13.5 fLHEALTHSOUTH MEDICAL CENTERPlatelets (Bld) [#/Vol]299 10*3/uLHEALTHSOUTH MEDICAL CENTER RBC (Bld) [#/Vol]3.47 10*6/uLLow3.95 - 5.11 m/uLHEALTHSOUTH MEDICAL CENTERRBC (Bld) [#/Vol]ANISOCYTOSIS PRESENTHEALTHSOUTH MEDICAL CENTERSeg Ueklrgdbrmj90 %High 36 - 65 %[facility]ENTERSegs Wdbsaeks07.06HighHEALTHSOUTH MEDICAL CENTER WBC (Bld) [#/Vol]16.7 10*3/uLHighBON [facility] - AVERACulture, Blood 1on 50-14-8027Nnsfeqvs identified Cx Nom (Unsp spec) PositiveAbnormChildren's Hospital of Richmond at VCUBacteria identified Cx Nom (Unsp spec) DIRECT GRAM STAIN FROM BOTTLE: GRAM POSITIVE COCCI IN [facility] CENTERBacteria identified Cx Nom (Unsp spec)STAPHYLOCOCCUS AUREUS This isolate is methicillin susceptible.[facility] HospitalBacteria identified Cx Nom (Unsp spec)(NOTE) Direct Gram Stain from bottle result called to and read back by: VIRGIE Ferraro AT 2058 ON 06/30/21[facility]ENTERInterpretation and review of laboratory resultsAbnormChildren's Hospital of Richmond at VCUSpecial RequestsLT HAND 9MLHEALTHSOUTH MEDICAL CENTERSpecimen Description.[facility] HOSPITALHemoglobin and Hematocriton 63-14-4901Ahpaxpfuvd (Bld) [Volume fraction]24.8 %Low36.3 - 47.1 %[facility] Hemoglobin.gastrointestinal spec 1 Ql (Stl)8.1 g/dLLow11.9 - 15.1 g/dLBON [facility]OSPITALInterpretation and review of laboratory resultsAbSturgis Regional HospitalHematocrit (Bld) [Volume fraction] 29.0 %Low36.3 - 47.1 %[facility]ENTERHemoglobin.gastrointestinal spec 1 Ql (Stl)9.1 g/dLLow11.9 - 15.1 g/dLBON [facility]OSPITALInterpretation and review of laboratory resultsAbSturgis Regional HospitalMagnesiumon 05-30-3140Dhserafvv [Mass/Vol]2.3 mg/dL1.6 - 2.6 mg/dLBON [facility] - AVERAPOC Glucose Fingerstickon 07-02-2021 Glucose [Mass/Vol]122 mg/iFZyvb35 - 105 mg/dLBON [facility] Interpretation and review of laboratory resultsAbBlack Hills Rehabilitation HospitalGlucose [Mass/Vol]105 mg/dL65 - 105 mg/dLBON [facility] - AVERAGlucose [Mass/Vol]113 mg/tWAdyp33 - 105 mg/dLBON [facility] HEALTHInterpretation and review of laboratory results AbnormalBON [facility] HEALTHGlucose [Mass/Vol]78 mg/dL65 - 105 mg/dLBON [facility] - AVERAGlucose [Mass/Vol]111 mg/fEFlfl90 - 105 mg/dLBON [facility] HEALTHInterpretation and review of laboratory resultsAbnormalBON [facility] HEALTHPotassiumon 09-24-5523Wqqedippngrfok and review of laboratory results AbnormalWYTHE COUNTY COMMUNITY [facility]OSPITAL HEALTHPotassium [Moles/Vol]3.5 mmol/LLow3.7 - 5.3 mmol/LBON [facility] - AVERAInterpretation and review of laboratory resultsAbnormalWYTHE COUNTY COMM[facility] HEALTHPotassium [Moles/Vol]3.5 mmol/LLow3.7 - 5.3 mmol/LBON [facility] - AVERABasic Metabolic Panel w/ Reflex to MGon 95-60-4444Pbeqq gap [Moles/Vol]10 mmol/L9 - 17 mmol/LBON [facility] HOSPITALCalcium [Mass/Vol]8.2 mg/dLLow8.6 - 10.4 mg/dLBON [facility] HOSPITALChloride [Moles/Vol]102 mmol/L98 - 107 mmol/LBON [facility] HOSPITALCO2 [Moles/Vol]25 mmol/L20 - 31 mmol/LBON [facility] Creatinine [Mass/Vol]0.97 mg/dLHigh0.50 - 0.90 mg/dLBON [facility] HEALTHGFR >60>60 mL/minWYTHE COUNTY COMMUNITY [facility]OSPITAL HEALTHGFR Non- Zfemugrs33 mL/minLow>60BON [facility] HOSPITALGFR/1.73 sq M.predicted MDRD (S/P/Bld) [Vol rate/Area][facility]ON [facility] HEALTHGlucose [Mass/Vol]117 mg/iDIgju22 - 99 mg/dL [facility]ENTERInterpretation and review of laboratory resultsAbnormal BON [facility] HEALTHPotassium [Moles/Vol]2.2 mmol/LCritically low3.7 - 5.3 mmol/LBON [facility] BRENTWOOD HOSPITALSodium [Moles/Vol]137 mmol/L135 - 144 mmol/LBON [facility] HOSPITALUrea nitrogen (BldV) [Mass/Vol]18 mg/dL6 - 20 mg/dLBON SECEDGERTON [facility]ITAL AND HEALTH SERVICESC-Reactive Proteinon 48-51-0909PXN [Mass/Vol]38.5 mg/LHigh0.0 - 5.0 mg/LBON [facility]ITALInterpretation and review of laboratory resultsAbnormalBON SECEDGERT[facility] AND HEALTH SERVICESCBC with Auto Differentialon 39-37-2320Jgvltcyj Eos #0.00BON SEC[facility]ITALAbsolute Immature Granulocyte0.00BON SEC[facility]RS [facility]ITALAbsolute Lymph # 2.14BON [facility]RS [facility]OS[facility]ITALAbsolute [place] #0.76BON SECSUBURB[facility] & BRENTWOOD HOSPITALBasophils (Bld) [#/Vol]0.00 10*3/uLBON SECSUBURBAN [facility] & BRENTWOOD HOSPITALBasophils/100 WBC (Bld)0 %0 - 2 %BON [facility]OS[facility]ITALEosinophils/100 WBC (Bld)0 %Low1 - 4 %BON [facility] HOSPITALHematocrit (Bld) [Volume fraction]28.4 %Low36.3 - 47.1 %[facility] CENTERHemoglobin.gastrointestinal spec 1 Ql (Stl)9.0 g/dLLow11.9 - 15.1 g/dLBON SECSUBURBAN [facility] & BRENTWOOD HOSPITALImmature granulocytes/100 WBC (Bld)0 %0BON [facility]ITALInterpretation and review of laboratory resultsAbnormalBON [facility] HOSPITALLymphocytes/100 WBC (Bld)17 %Low24 - 44 %[facility]ON [facility] (RBC) [Entitic mass]26.2 pg25.2 - 33.5 pgCHESAPEAKE REGIONAL MEDICAL CENTERHC (RBC) [Mass/Vol]31.7 g/dL28.4 - 34.8 g/dLBON SECOHIOHEALTH SHELBY HOSPITALV (RBC) [Entitic vol]82.8 fL82.6 - 102.9 fLHEALTHSOUTH MEDICAL CENTERMonocytes/100 WBC (Bld)6 %1 - 7 %[facility] CENTERMorphology Malachi (Bld) [Interp]ANISOCYTOSIS PRESENTHEALTHSOUTH MEDICAL CENTERNRBC Automated0.00.0 per 100 WBCHEALTHSOUTH MEDICAL CENTER Platelet distribution width (Bld) [Ratio]16.2 %High11.8 - 14.4 %[facility] CENTERPlatelet mean volume (Bld) [Entitic vol]8.8 fL8.1 - 13.5 fLHEALTHSOUTH MEDICAL CENTERPlatelets (Bld) [#/Vol]284 10*3/uLHEALTHSOUTH MEDICAL [facility]ENTER RBC (Bld) [#/Vol]3.43 10*6/uLLow3.95 - 5.11 m/uLHEALTHSOUTH MEDICAL CENTERSeg Qcwhfctlktg68 %High36 - 66 %[facility]ERSegs Absolute9.70HighHEALTHSOUTH MEDICAL CENTERWBC (Bld) [#/Vol]12.6 10*3/uLHighINOVA ALEXANDRIA HOSPITALCulture, CSFon 92-13-5014Yzeripzn identified Cx Nom (Unsp spec)NO GROWTH 3 DAYSBON [facility] HOSPITALDirect ExamNO NEUTROPHILS SEENHEALTHSOUTH MEDICAL CENTERDirect ExamNO ORGANISMS SEENHEALTHSOUTH MEDICAL CENTERDirect ExamGram stain made from cytocentrifuged specimen. Organisms and cells will be concentrated.[facility] CENTERSpecimen Description.[facility] HOSPITALHemoglobin and Hematocriton 35-22-6151Hgqqwamfdr (Bld) [Volume fraction]27.2 %Low36.3 - 47.1 %[facility]OSPITALCash'o [employer] Butcher [facility] [employer] Hemoglobin.gastrointestinal spec 1 Ql (Stl)8.8 g/dLLow11.9 - 15.1 g/dLBON [facility] VALLEY HOSPITALCash'o & [facility]cher [facility] HEALTHInterpretation and review of laboratory resultsAbnormalINOVA ALEXANDRIA HOSPITALHematocrit (Bld) [Volume fraction] 26.7 %Low36.3 - 47.1 %[facility]ERN[facility] HOSPITALTapulous Sim Ops StudiosHemoglobin.gastrointestinal spec 1 Ql (Stl)8.6 g/dLLow11.9 - 15.1 g/dLBON [facility] VALLEY HOSPITALCash'o & Butcher [facility] HEALTHInterpretation and review of laboratory resultsAbnormalINOVA ALEXANDRIA HOSPITALLyme Disease AB, CSFon 07-01-2021 burgdorferi Ab,CSF0.02<=0.99 [facility]OSPITALBON [facility] - AVERAMagnesiumon 30-19-0737Jqbrfypzg [Mass/Vol]1.9 mg/dL1.6 - 2.6 mg/dLBON [facility] - AVERAMagnesium [Mass/Vol]2.0 mg/dL1.6 - 2.6 mg/dLBON [facility] HEALTHOligoclonal Bandson 46-46-3294VBY Isoelectric Focusing InterpretationSee [facility] Memorial HospitalOligo BandsNegativeHEALTHSOUTH MEDICAL CENTEROligoclonal Bands NumberMatchStafford HospitalPOC Glucose Fingerstickon 81-38-8720Mpqlwuj [Mass/Vol]84 mg/dL65 - 105 mg/dLBON [facility] HEALTHGlucose [Mass/Vol]104 mg/dL65 - 105 mg/dLBON [facility] - AVERAGlucose [Mass/Vol]65 mg/dL65 - 105 mg/dLBON [facility] Glucose [Mass/Vol]107 mg/lCRvks65 - 105 mg/dLBON [facility] Interpretation and review of laboratory resultsAbnormChildren's Hospital of The [facility] HEALTHGlucose [Mass/Vol]115 mg/sZFllv13 - 105 mg/dLBON [facility]ITALInterpretation and review of laboratory resultsAbnormInova [facility] HEALTHPotassiumon 08-02-2684Hfpedtplfyttpc and review of laboratory resultsAbnormCarilion Clinic HEALTHPotassium [Moles/Vol]2.5 mmol/LCritically low3.7 - 5.3 mmol/LBON [facility] HEALTHInterpretation and review of laboratory resultsAbnormCarilion Clinic HEALTHPotassium [Moles/Vol]2.4 mmol/LCritically low3.7 - 5.3 mmol/LBON [facility]ENTERRIV[facility] HEALTHQuantiferon TB Goldon 26-62-1864PvtncnSWIDN Mitogen1.11IU/mLBON [facility] HEALTHQuantiFERON Nil 0.02IU/mLBON [facility] HEALTHQuantiferon TB Minus NILNegativeNegativeBON SECRIVERSIDE [facility]ENTER HEALTHQuantiferon TB1 Minus NIL0.00BON [facility] Quantiferon TB2 Minus NIL0.00BON [facility] West Nile Virus, CSFon 69-92-4920JGDJ NILE AB IGG CSF0.19<=1.29 IVBON SECOURS [facility]OS[facility]ITALWEST NILE AB IGM CSF0<=0.89 IVSIERRA [facility]IST[facility] SECEDGERTON HOSPITAL AND HEALTH SERVICESCulture, Blood 1on 93-58-8859Rhnmqhan identified Cx Nom (Unsp spec) PositiveAbnormalHEALTHSOUTH MEDICAL CENTERBacteria identified Cx Nom (Unsp spec) DIRECT GRAM STAIN FROM BOTTLE: GRAM POSITIVE COCCI IN [facility] CENTERBacteria identified Cx Nom (Unsp spec)Staphylococcus aureus Detected: mecA/C and MREJ Not DetectedHEALTHSOUTH MEDICAL CENTERBacteria identified Cx Nom (Unsp spec)STAPHYLOCOCCUS AUREUS This isolate is methicillin susceptible. AbnormalHEALTHSOUTH MEDICAL CENTERBacteria identified Cx Nom (Unsp spec)(NOTE) Direct Gram Stain from bottle and Polymerase Chain Reaction (PCR) results called to and readback by: Dino Casillas at 0248 on 06/29/2021.[facility] Special RequestsRT FA 3 MLHEALTHSOUTH MEDICAL CENTERSpecimen Description.BLOODHEALTHSOUTH MEDICAL CENTERCulture, Blood 2on 16-66-5563Mijxtjyp identified Cx Nom (Unsp spec)PositiveAbnormalHEALTHSOUTH MEDICAL CENTERBacteria identified Cx Nom (Unsp spec)DIRECT GRAM STAIN FROM BOTTLE: GRAM POSITIVE COCCI IN [facility] CENTERBacteria identified Cx Nom (Unsp spec)STAPHYLOCOCCUS AUREUS For susceptibility, refer to previous culture.[facility] Bacteria identified Cx Nom (Unsp spec)(NOTE) Direct Gram Stain from bottle result called to and read back by: Dino Casillas at 0245 on 06/29/2021.Insmed [facility]OSPITALCash'o & Butcher [facility]ITALInterpretation and review of laboratory resultsAbnormalHEALTHSOUTH MEDICAL CENTERSpecial RequestsLEFT HAND 1 MLBON [facility] HOSPITALSpecimen Description.BLOODBON WAGNER COMM[facility]ITY [facility] - AVERAHemoglobin and Hematocriton 06-18-0405Sanyrxfxyy (Bld) [Volume fraction]29.3 %Low36.3 - 47.1 % BON [facility] HOSPITALHemoglobin.gastrointestinal spec 1 Ql (Stl)9.4 g/dLLow 11.9 - 15.1 g/dLBON [facility] HOSPITALInterpretation and review of laboratory resultsAbnormalBON [facility] - AVERAPO Glucose Fingerstickon 64-16-5941Wvgmfzf [Mass/Vol]173 mg/dOUmmy08 - 105 mg/dLBON [facility] HEALTHInterpretation and review of laboratory resultsAbnormalINOVA ALEXANDRIA HOSPITALGlucose [Mass/Vol]182 mg/aZFbzy51 - 105 mg/dLBON [facility] VALLEY HOSPITALTapulous HEALTHInterpretation and review of laboratory results AbnormalBON WAGNER [facility] - AVERAGlucose [Mass/Vol]171 mg/qVZicl29 - 105 mg/dLBON [facility] [employer] HEALTHInterpretation and review of laboratory resultsAbnormalINOVA ALEXANDRIA HOSPITALXR FOOT LEFT (MIN 3 VIEWS)on 62-10-5563TXZE RIS CONSOLIDATEDPN RIS CONSOLIDATED [facility] Work Phone: XR FOOT LEFT (MIN 3 VIEWS)Ordered By: Enedelia Garcia on 18-04-5232ILV [facility] [employer] Work Phone: Acetaminophen Levelon 39-13-8373Msqlpoqlgjppn Level<5 Low10 - 30 ug/mLMercy HealthAmmoniaon 11-03-5711Qylygru (P) [Moles/Vol]12 umol/L 11 - 51 umol/LMercy HealthMer HealthCBC with Auto Differentialon 06-28-2021 Absolute Bands #0.43Mercy HealthAbsolute Eos #Mercy HealthAbsolute Lymph #1.51 Mercy HealthAbsolute [place] #1.08HighMercy HealthBands2 %0 - 10 %[facility] Basophils (Bld) [#/Vol]0 - 2 %[facility] HealthBasophils AbsoluteMer Health Eosinophils %0 - 5 %[facility] Medical CenterHematocrit (Bld) [Volume fraction]30.9 %Low36 - 46 %[facility] Medical CenterHemoglobin.gastrointestinal spec 1 Ql (Stl)10.1 g/dLLow12.0 - 16.0 g/dLPremier Health Atrium Medical CenterInterpretation and review of laboratory resultsAbnormal [facility] Medical CenterLymphocytes/100 WBC (Bld)7 %Low15 - 40 %[facility] SystemH (RBC) [Entitic mass]26.2 pg26 - 34 pgOhio State Health SystemHC (RBC) [Mass/Vol]32.6 g/dL31 - 37 g/dLOhio State Health SystemV (RBC) [Entitic vol]80.5 fL80 - 100 fLPremier Health Atrium Medical Center Monocytes/100 WBC (Bld)5 %4 - 8 %[facility] Medical CenterMorphology Malachi (Bld) [Interp]Manual Differential PerformedPremier Health Atrium Medical CenterPlatelet distribution width (Bld) [Ratio]17.1 %High12.1 - 15.2 %[facility] Medical CenterPlatelets (Bld) [#/Vol]537 10*3/uLHighPremier Health Atrium Medical CenterRBC (Bld) [#/Vol]3.83 10*6/uLLow4.0 - 5.2 m/uLPremier Health Atrium Medical CenterSegmented neutrophils/100 WBC (Bld)86 %High47 - 75 %[facility] Medical CenterSegs Pxcanbgm46.48High [facility] Medical CenterWBC (Bld) [#/Vol]21.5 10*3/uLCritically highMercer County Community Hospital Health CKon 10-30-4605XZ [Catalytic activity/Vol]63 U/L26 - 192 U/LMercy HealthCOVID- 19, Rapidon 80-70-9552IDCJ-CoV-2 (COVID-19) RNA CAL+probe Ql (Unsp spec)Not detectedNot DetectedPremier Health Atrium Medical CenterComment on above: Rapid NAAT: The specimen is [...] management decisions. Fact sheet for Healthcare Providers: https://www.fda.gov/media/232053/download Fact sheet for Patients: https://www.fda.gov/media/892837/download Methodology: Isothermal Nucleic Acid Amplification Specimen Description.NASOPHARYNGEAL SWABMercy HealthMerEvergreenHealth MonroeCT ABDOMEN PELVIS W IV CONTRAST Additional Contrast? Noneon 06-28-2021 1. No evidence of bowel obstruction. 2. Normal appendix. 3. Status post cholecystectomy. [facility] CONSOLIDATEDEXAMINATION: CT ABDOMEN PELVIS W IV CONTRAST, [...] lesions. Laminectomy changes are noted at L4. [facility] Charly David MD - 06/28/2021 EXAMINATION: CT [...] 2. Normal appendix. 3. Status post cholecystectomy. [employer] Phone: radiology Study observation (narrative)[employer] Phone: cT ABDOMEN PELVIS W IV CONTRAST Additional Contrast? NoneOrdered By: Charly Mendoza on 64-31-3194EbzroNoviMedicine Phone: ct Head WO Contraston . Poorly diagnostic examination due to patient motion. 2. No gross evidence of hemorrhage or mass effect. A telephone call regarding the findings in examination and limitations the study was made to and acknowledged by Dr. Boothe in the emergency department at 4:55 AM on 06/28/2021. [facility] RIS CONSOLIDATEDINDICATION: 56 years old; Female. [...] evaluated in the present study. OTHER: None. [facility] RON Mims Kike - 06/28/2021 INDICATION: [...] emergency department at 4:55 AM on 06/28/2021. [employer] Phone: radiology Study observation (narrative)[employer] Phone: ct Head WO ContrastOrdered By: Kike Maguire on 65-95-5197TegheNoviMedicine Phone: comprehensive Metabolic Panel w/ Reflex to MGon 30-66-5972Vciqexd [Mass/Vol]4 g/dL3.5 - 5.2 g/dLMagruder Memorial HospitalPatient Communicator HealthALP (Bld) [Catalytic activity/Vol]290 U/LHigh35 - 104 U/LMercy HealthALT [Catalytic activity/Vol]25 U/L5 - 33 U/LMercy HealthAnion gap [Moles/Vol]16 mmol/L9 - 17 mmol/LMercy Health AST [Catalytic activity/Vol]16 U/L<32[facility] HealthBilirubin [Mass/Vol]0.45 mg/dL 0.30 - 1.20 mg/dLMadison Health HealthCalcium [Mass/Vol]9.9 mg/dL8.6 - 10.4 mg/dLMer HealthChloride [Moles/Vol]95 mmol/LLow98 - 107 mmol/LMercy HealthCO2 [Moles/Vol] 27 mmol/L20 - 31 mmol/LMercy HealthCreatinine [Mass/Vol]0.89 mg/dL0.50 - 0.90 mg/dLPremier Health Atrium Medical CenterFree PSA/Total PSA [Mass fraction]8.5 g/dLHigh6.4 - 8.3 g/dL [facility]rium Medical CenterGFR >60>60 mL/minMadison Health HealthGFR Non->60>60 mL/minMagruder Memorial Hospitalcy HealthGFR/1.73 sq M.predicted MDRD (S/P/Bld) [Vol rate/Area][facility] Medical CenterComment on above:Average GFR for 50-59 years old: 93 mL/min/1.73sq m Chronic Kidney Disease: <60 mL/min/1.73sq m Kidney failure: <15 mL/min/1.73sq m eGFR calculated using average adult body mass. Additional eGFR calculator available at: http://www.Boardvote.[place]/multiple_crcl_2011.htm Glucose [Mass/Vol]268 mg/eRPqpa22 - 99 mg/dLPremier Health Atrium Medical CenterInterpretation and review of laboratory resultsAbnormalMadison Health HealthPotassium [Moles/Vol]3.4 mmol/L Low3.7 - 5.3 mmol/LMercy HealthSodium [Moles/Vol]138 mmol/L135 - 144 mmol/LMercy HealthUrea nitrogen (BldV) [Mass/Vol]25 mg/dLHigh6 - 20 mg/dLMadison Health HealthUrea nitrogen/Creatinine (Bld) [Mass ratio]28HighMercy HealthMercy HealthEthanolon 01-08-3701Gddxywj [Mass/Vol]mg/dL<10 mg/dLMercy HealthEthanol percent<0.010% Mercy HealthLactic Acidon 65-43-9779Zeqxvov [Moles/Vol]1.6 mmol/L0.5 - 2.2 mmol/LMercy HealthMercy HealthLipaseon 59-65-6357Dxvplt [Catalytic activity/Vol] 30 U/L13 - 60 U/LMercy HealthMagnesiumon 12-90-9053Eodrcgjsv [Mass/Vol]1.9 mg/dL 1.6 - 2.6 mg/dLMercy HealthMercy HealthMicroscopic Urinalysison 06-28-2021-Mercy HealthEpithelial Cells UA0 TO 2/HPFMercy HealthRBC, UA5 TO 10Mercy HealthMercy HealthNo Panel Informationon 03-94-9531Gvsbalmusislcp and review of laboratory resultsAbnormalMer HealthMercy HealthMercy HealthSalicylateon 06-28-2021 Salicylate Lvl<1Low3 - 10 mg/dLMercy HealthUrinalysison 95-87-3047Nqkghylxs UrineNegativeNEGATIVEMercy HealthColor, UAYellowYellowMercy HealthGlucose, Ur 1000 mg/dLAbnormalNEGATIVEMercy HealthInterpretation and review of laboratory resultsAbnormalMercy HealthKetones Ql (U)SMALLAbnormalNEGATIVEMercy Health Leukocyte esterase Test strip Ql (U)NegativeNEGATIVEMercy HealthNitrite, Urine NegativeNEGATIVEMercy HealthpH, UA7.0Mercy HealthProtein, UA2+AbnormalNEGATIVE Mercy HealthSpecific Mattawamkeag, UA1.010Mercy HealthTurbidity UAHazyAbnormalClear Mercy HealthUrinalysis CommentsMercy HealthUrine Hgb1+AbnormalNEGATIVEMercy HealthUrobilinogen, UrineNormalNormalMercy HealthMercy HealthUrine Drug Screenon 08-10-8046Ahfqjmfkexc Screen, UrNegativeNEGATIVEMercy HealthComment on above: (Positive cutoff [...] sent to a reference laboratory for confirmation. spotflux CHEST PORTABLEon 06-28-2021 No acute abnormality. [facility] CONSOLIDATEDCLINICAL HISTORY: altered mental status COMPARISON: none FINDINGS: Portable AP view of the chest obtained. Cardiomediastinal silhouette is normal. Lungs are clear, no evidence of infiltrate, suspicious nodule, or mass. No evidence of significant pleural fluid on this portable projection. No acute bony abnormality. [facility] Leonardo Dougherty MD - 06/28/2021 CLINICAL HISTORY: altered mental status COMPARISON: none FINDINGS: Portable AP view of the chest obtained. Cardiomediastinal silhouette is normal. Lungs are clear, no evidence of infiltrate, suspicious nodule, or mass. No evidence of significant pleural fluid on this portable projection. No acute bony abnormality. IMPRESSION: No acute abnormality. [employer] Phone: radiology Study observation (narrative)[employer] Phone: xr CHEST PORTABLEOrdered By: Leonardo Lopes on 69-99-7202Kkhlx Health Work Phone: [phone], MOLECULARon 61-51-1477BRPO-CoV-2 (COVID-19) RNA CAL+probe Ql (Unsp spec)Not detectedNormalNot [facility] Comment on above:Order Comment: This test was [...] at the following links: For Healthcare Providers: https://www.fda.gov/media/432948/download For Patients: https://www.fda.gov/media/383721/downloadPerformed By: #### [id number] #### LAB [address] [address] Skylar Niño M.D. [id number] FOOT LEFT WITHOUT CONTRASTon 20-01-6779IJ FOOT LEFT WITHOUT CONTRASTEXAMINATION: MRFTLWO MR FOOT [...] GUADARRAMA on FriMay 22, 2021 7:54:35 AM EDTNoCommunity Regional Medical CenterComment on above:Order Comment: Injury/Trauma or Illness?:Illness/Other How long have you had these symptoms (acute/chronic)?:Acute Reason for exam?:ulcer in ball of foot at 1st -2nd metatarsal heads, (2nd toe has been removed) x1 month Type of Exam?:Initial Additional signs and symptoms?:patient is a diabeticXR FOOT LEFT 3+ VIEWS (STANDARD)on 37-45-4264RG FOOT LEFT 3+ VIEWS (STANDARD)EXAMINATION: XR FOOT [...] ID: [id number] Dictated by: LUIS POLANCO on [place] May 20, 2021 4:40:24 PM EDT Transcribed by: LUIS POLANCO on [place] May 20, 2021 4:40:24 PM EDT Finalized by: LUIS POLANCO on [place] May 20, 2021 4:40:24 PM EDTNoCommunity Regional Medical CenterComment on above:Order Comment: Injury/Trauma or Illness?:Illness/Other How long have you had these symptoms (acute/chronic)?:Acute Reason for exam?:callused area to left plantar foot History of cancer?:u Surgeries, chemotherapy, or radiation?:u Type of Exam?:Initial Additional signs and symptoms?:CT ANGIOGRAM HEAD NECKon 88-02-3515KN ANGIOGRAM HEAD NECKEXAMINATION: CT ANGIOGRAM HEAD NECK [...] patent on the right. SCA patent bilaterally. EXECUTIVE CASINO HOST patent bilaterally. Basilar artery and basilar tip [...] [place] May 19, 2021 3:53:28 AM EDTNoCommunity Regional Medical CenterComment on above:Order Comment: Injury/Trauma or Illness?:Illness/Other How long have you had these symptoms (acute/chronic)?:Acute Reason for exam?:head and neck pain, sudden and severe Type of Exam?:Initial Additional signs and symptoms?:r/o vertebral artery dissectionMR BRAIN WITH AND WITHOUT CONTRASTon [id number] BRAIN WITH AND WITHOUT CONTRASTEXAMINATION: MR BRAIN [...] on Sat May 19, 2021 10:41:14 PM EDTNoCommunity Regional Medical CenterComment on above:Order Comment: Injury/Trauma or Illness?:Illness/Other How long have you had these symptoms (acute/chronic)?:Acute Reason for exam?:H/A neck pain increased after visit to chiropractor office x 4 days ago Hx. of chronic neck pain / H/A's Type of Exam?:Initial Additional signs and symptoms?:naMR CERVICAL SPINE WITH AND WITHOUT CONTRASTon [id number] CERVICAL SPINE WITH AND WITHOUT CONTRASTEXAMINATION: MR [...] ID: [id number] Dictated by: Pili FONTAINE on [place] May 20, 2021 8:14:06 AM EDT Transcribed by: JANY FORBES on [place] May 20, 2021 8:50:25 AM EDT Finalized by: Pili FONTAINE on [place] May 20, 2021 2:03:56 PM EDTNoCommunity Regional Medical CenterComment on above:Order Comment: Injury/Trauma or Illness?:Illness/Other How long have you had these symptoms (acute/chronic)?:Acute Reason for exam?:H/A neck pain increased after visit to chiropractor office x 4 days ago Hx. of chronic neck pain / H/A's Type of Exam?:Initial Additional signs and symptoms?:naUS ABDOMEN LIMITED STUDYon 82-51-6100BL ABDOMEN LIMITED STUDYEXAMINATION: US ABDOMEN LIMITED STUDY [...] [place] May 19, 2021 6:07:29 PM EDTNoAC[facility] on above:Order Comment: Injury/Trauma or Illness?:Illness/Other How long have you had these symptoms (acute/chronic)?:Acute Reason for exam?:elevated liver enzymes History of cancer?:u Surgeries, chemotherapy, or radiation?:u Type of Exam?:Initial Additional signs and symptoms?:nCOVID-19, MOLECULARon 63-01-2629CWXV-CoV-2 (COVID-19) RNA CAL+probe Ql (Unsp spec)Not detectedNormalBaraga County Memorial Hospital on above:Result Comment: This test was performed under the FDA's Emergency Use Authorization (EUA). Testing was performed using the Xpert Xpress SARS-CoV-2 RT-PCR [employer] assay on the GeneXpert Dx platform. This test has not been approved for use in asymptomatic patients and its performance in this patient population has not been evaluated. Negative results do not rule out the presence of SARS-CoV-2/COVID-19. Fact sheets for this EUA can be found at the following links: For Healthcare Providers: https://www.fda.gov/media/649934/download For Patients: https://www.fda.gov/media/827405/downloadPerformed By: #### [id number] #### [facility] [address] [address] Skylar Niño M.D. [id number] CERVICAL SPINE WITHOUT CONTRASTon 26-03-9903SP CERVICAL SPINE WITHOUT CONTRASTEXAMINATION: CT CERVICAL SPINE [...] to severe right facet arthropathy at C5-C6. Hekj-mw-rkmpbeqp stenosis of the right C5-C6 neural foramen [...] the cervical spine without central spinal stenosis. Fhjh-yv-mjozuwcs stenosis the right C5-C6 neural foramen secondary to mild uncovertebral hypertrophy and moderate to severe right facet hypertrophy. Workstation ID: [id number] Dictated by: ALBERT MARIA on FriMay 18, 2021 5:23:47 PM EDT Transcribed by: ALBERT MARIA on FriMay 18, 2021 5:23:47 PM EDT Finalized by: ALBERT MARIA on FriMay 18, 2021 5:23:47 PM EDTCleveland Clinic Mercy Hospital Comment on above:Order Comment: Injury/Trauma or Illness?:Injury/Trauma How long have you had these symptoms (acute/chronic)?:Acute Reason for exam?:severe neck pain and headache since chiropractic adjustment a couple days ago Type of Exam?:Initial Mechanism of injury?:chiropractic adjustment a couple days agoHV 24-2 STANDARD - OUon 14-37-7516TMU 24-2 STANDARD - OUOD: Reliable: 0/16 FL, 0% FP, 0% FN Stable: worse Findings: superior alt MD: -11.18 (-7.05) OS: Reliable: 1/17 FL, 0% FP, 12% FN Stable: worse Findings: superior forming alt MD: -7.89 (-5.69)NormalMount St. Mary HospitalBUN CREAon 31-09-8873Qbjzixyzlu [Mass/Vol]1.38 mg/dLHigh0.50 - 1.20 mg/dLProtestant HospitalGFR/1.73 sq M.predicted CKD-EPI (S/P/Bld) [Vol rate/Area]44Low>=60 mL/min/1.64c5NVQProtestant HospitalComment on above:Reported eGFR is based on the CKD-EPI 2021 equation using creatinine, age, and sex.Interpretation and review of laboratory resultsAbnormalOUniversity Hospitals Cleveland Medical CenterUrea nitrogen [Mass/Vol]27 mg/dLHigh7 - 25 mg/dLProtestant HospitalUrea nitrogen/Creatinine [Mass ratio]20 mg/mgOSAdena Health SystemOSAdena Health SystemCreatinine [Mass/Vol]1.38 mg/dLHigh0.50-1.20[facility]. Mary HospitalComment on above:Order Comment: Prior to first [facility] Infusion and every 2 weeks if baseline CR is within normal limits.Performed By: #### BCR #### [facility] (DEFAULT) [address] [place] [address]FTJ/1.73 sq M.predicted among non-blacks MDRD (S/P/Bld) [Vol rate/Area]44 mL/min/{1.73_m2}Low>=60[facility] Comment on above:Order Comment: Prior to first Gamunex Infusion and every 2 weeks if baseline CR is within normal limits.Result Comment: Reported eGFR is based on the CKD-EPI 2021 equation using creatinine, age, and sex.Performed By: #### BCR #### [facility] (DEFAULT) [address] [place] [address]Fnvs nitrogen [Mass/Vol]27 mg/dLHigh7-25Mount St. Mary HospitalComment on above:Order Comment: Prior to first Gamunex Infusion and every 2 weeks if baseline CR is within normal limits.Performed By: #### BCR #### [facility] (DEFAULT) [address] [place], [place] [address]Aknq nitrogen/Creatinine [Mass ratio]20 mg/mgNoPremier Health Upper Valley Medical CenterComment on above:Order Comment: Prior to first Gamunex Infusion and every 2 weeks if baseline CR is within normal limits. Performed By: #### BCR #### [facility] (DEFAULT) [address] [place], [place] [address]CRE AND ELECTRONIC DIFFon 96-63-7444Aoujjqslj (Bld) [#/Vol] 10*3/uL0.00 - 0.15 K/uLOSAdena Health SystemBasophils/100 WBC (Bld)0.2 %Protestant HospitalDIFF STATUSElectronic DifferentialProtestant Hospital Eosinophils (Bld) [#/Vol]0.16 10*3/uL0.00 - 0.42 K/uLProtestant Hospital Eosinophils/100 WBC (Bld)1.9 %Pro[facility]ant HospitalErythrocyte distribution width (RBC) [Ratio]15.4 %High10.8 - 14.9 %[facility]ant HospitalHematocrit (Bld) [Volume fraction]36.1 %34.9 - 44.3 %[facility]ant HospitalHemoglobin (Bld) [Mass/Vol]11.7 g/dL11.4 - 15.2 g/dLProtestant HospitalImmature granulocytes (Bld) [#/Vol]10*3/uL<=0.09 K/uLProtestant HospitalImmature granulocytes/100 WBC (Bld)0.2 %[facility] HospitalInterpretation and review of laboratory resultsAbnoPaulding County HospitalLymphocytes (Bld) [#/Vol]2.68 10*3/uL1.16 - 3.51 K/uLProtestant HospitalLymphocytes/100 WBC (Bld)32.0 %[facility] WestH (RBC) [Entitic mass]27.6 pg25.9 - 33.9 pgOSU Acmc Healthcare System GlenbeighMCHC (RBC) [Mass/Vol]32.4 g/dL31.4 - 35.9 g/dLProtestant HospitalMCV (RBC) [Entitic vol]85.1 fL79.6 - 97.7 [facility] HospitalMonocytes (Bld) [#/Vol]0.37 10*3/uL0.22 - 0.87 K/[facility] HospitalMonocytes/100 WBC (Bld)4.4 %Protestant HospitalNeutrophils (Bld) [#/Vol]5.13 10*3/uL1.64 - 7.28 K/[facility] HospitalNucleated RBC/100 WBC (Bld) [Ratio]0.0 %<=0.2 /100 WBCProtestant HospitalPlatelet mean volume (Bld) [Entitic vol]9.8 fL8.5 - 12.2 [facility] Platelets (Bld) [#/Vol]338 10*3/uL150 - 393 K/[facility] HospitalRBC (Bld) [#/Vol]4.24 10*6/uLMercy Health St. Anne Hospitalegmented neutrophils/100 WBC (Bld)61.3 %Protestant HospitalWBC (Bld) [#/Vol]8.38 10*3/uL3.99 - 11.19 K/uLRobert F. Kennedy Medical CenterBasophils (Bld) [#/Vol] 10*3/uLNormal0.00-0.15[facility] St. Mary HospitalComment on above:Order Comment: Prior to first Gamunex Infusion and then every 2 weeks.until results within normal limits. Collect weekly if baseline is abnormal.Performed By: #### [id number] #### [facility] (DEFAULT) [address] [address]Siigaspax/100 WBC (Bld)0.2 %NormalMount St. Mary HospitalComment on above:Order Comment: Prior to first Gamunex Infusion and then every 2 weeks.until results within normal limits. Collect weekly if baseline is abnormal.Performed By: #### [id number] #### [facility] (DEFAULT) [address] [address]CHVX STATUSElectronic DifferentialNormalOhio Select Medical Specialty Hospital - CincinnatiComment on above:Order Comment: Prior to first Gamunex Infusion and then every 2 weeks.until results within normal limits. Collect weekly if baseline is abnormal.Performed By: #### [id number] #### [facility] (DEFAULT) [address] [address]Oxqdmibzatv (Bld) [#/Vol]0.16 10*3/uLNormal0.00-0.42Mount [facility]. Mary HospitalComment on above:Order Comment: Prior to first Gamunex Infusion and then every 2 weeks.until results within normal limits. Collect weekly if baseline is abnormal.Performed By: #### [id number] #### [facility] (DEFAULT) [address] [address]Bzbsgspfhlg/100 WBC (Bld)1.9 %NormalMount St. Mary HospitalComment on above:Order Comment: Prior to first Gamunex Infusion and then every 2 weeks.until results within normal limits. Collect weekly if baseline is abnormal.Performed By: #### [id number] #### [facility] (DEFAULT) [address] [address]Xkemjivvaa (Bld) [Volume fraction]36.1 %Rjmfed36.9-44.3Mount St. Mary HospitalComment on above:Order Comment: Prior to first Gamunex Infusion and then every 2 weeks.until results within normal li mits. Collect weekly if baseline is abnormal.Performed By: #### [id number] #### [facility] (DEFAULT) [address] [address]Vhyoxsyprx (Bld) [Mass/Vol]11.7 g/fTKyafir61.4-15.2[facility] St[facility] Mary HospitalComment on above:Order Comment: Prior to first Gamunex Infusion and then every 2 weeks.until results within normal limits. Collect weekly if baseline is abnormal.Performed By: #### [id number] #### [facility] (DEFAULT) [address] [address]Eehuwgex Grans %0.2 %[facility] Southeast OhioComment on above:Order Comment: Prior to first Gamunex Infusion and then every 2 weeks.until results within normal limits. Collect weekly if baseline is abnormal.Performed By: #### [id number] #### [facility] (DEFAULT) [address] [address]Znhswewk Grans Absolute<0.04Normal<=0.09Mount St. Mary HospitalComment on above:Order Comment: Prior to first Gamunex Infusion and then every 2 weeks.until results within normal limits. Collect weekly if baseline is abnormal.Performed By: #### [id number] #### [facility] (DEFAULT) [address] [address]Vexvavjaluh (Bld) [#/Vol]2.68 10*3/uLNormal1.16-3.51[facility] Mary HospitalComment on above:Order Comment: Prior to first Gamunex Infusion and then every 2 weeks.until results within normal limits. Collect weekly if baseline is abnormal.Performed By: #### [id number] #### [facility] (DEFAULT) [address] [address]Zfyabtgactf/100 WBC (Bld)32.0 %[facility] OhioComment on above:Order Comment: Prior to first Gamunex Infusion and then every 2 weeks.until results within normal limits. Collect weekly if baseline is abnormal.Performed By: #### [id number] #### [facility] (DEFAULT) [address] [address]NNP (RBC) [Entitic vol]85.[address]quu38.6-97.7[facility] Mary HospitalComment on above:Order Comment: Prior to first Gamunex Infusion and then every 2 weeks.until results within normal limits. Collect weekly if baseline is abnormal.Performed By: #### [id number] #### [facility] (DEFAULT) [address] [address]Hqyp Cell Hgb27.[address]Djvpyd00.9-33.9[facility] Mary HospitalComment on above:Order Comment: Prior to first Gamunex Infusion and then every 2 weeks.until results within normal limits. Collect weekly if baseline is abnormal.Performed By: #### [id number] #### [facility] (DEFAULT) [address] [address]Tynk Cell Hgb Conc32.4 g/iKBtuurd04.4-35.9[facility] Mary HospitalComment on above:Order Comment: Prior to first Gamunex Infusion and then every 2 weeks.until results within normal limits. Collect weekly if baseline is abnormal.Performed By: #### [id number] #### [facility] (DEFAULT) [address] [address]Psekhhkqu (Bld) [#/Vol]0.37 10*3/uLNormal0.22-0.87[facility] Mary HospitalComment on above:Order Comment: Prior to first Gamunex Infusion and then every 2 weeks.until results within normal limits. Collect weekly if baseline is abnormal.Performed By: #### [id number] #### [facility] (DEFAULT) [address] [address]Rqmdqskzj/100 WBC (Bld)4.4 %NormalMount St. Mary HospitalComment on above:Order Comment: Prior to first Gamunex Infusion and then every 2 weeks.until results within normal limits. Collect weekly if baseline is abnormal.Performed By: #### [id number] #### [facility] (DEFAULT) [address] [address]Hfyviadai RBC0.0 /[address] WBCNormal<=0[address] Mary HospitalComment on above:Order Comment: Prior to first Gamunex Infusion and then every 2 weeks.until results within normal limits. Collect weekly if baseline is abnormal.Performed By: #### [id number] #### [facility] (DEFAULT) [address] [address]Cvuvmiks mean volume (Bld) [Entitic vol]9.8 fLNormal8.5-12.[address] [facility] HospitalComment on above:Order Comment: Prior to first Gamunex Infusion and then every 2 weeks.until results within normal li mits. Collect weekly if baseline is abnormal.Performed By: #### [id number] #### [facility] (DEFAULT) [address] [address]Ccdfhvfso (Bld) [#/Vol]338 10*3/gVKkdmav444-254SkvqMount St. Mary HospitalComment on above:Order Comment: Prior to first Gamunex Infusion and then every 2 weeks.until results within normal limits. Collect weekly if baseline is abnormal.Performed By: #### [id number] #### [facility] (DEFAULT) [address] [address]HWH (Bld) [#/Vol]4.24 10*6/uLNormal3.91-5.04[facility] HospitalComment on above:Order Comment: Prior to first Gamunex Infusion and then every 2 weeks.until results within normal limits. Collect weekly if baseline is abnormal.Performed By: #### [id number] #### [facility] (DEFAULT) [address] [address]ASC Lagtmjmgxyry90.4 %High10.8-14.9[facility]. Mary HospitalComment on above:Order Comment: Prior to first Gamunex Infusion and then every 2 weeks.until results within normal limits. Collect weekly if baseline is abnormal.Performed By: #### [id number] #### [facility] (DEFAULT) [address] [address]Zokx + Bands Auto61.3 %NormalMount St. Mary HospitalComment on above:Order Comment: Prior to first Gamunex Infusion and then every 2 weeks.until results within normal limits. Collect weekly if baseline is abnormal.Performed By: #### [id number] #### [facility] (DEFAULT) [address] [address]Issi + Bands,Absolute Auto5.13 K/uLNormal1.64-7.28[facility] Mary HospitalComment on above:Order Comment: Prior to first Gamunex Infusion and then every 2 weeks.until results within normal limits. Collect weekly if baseline is abnormal.Performed By: #### [id number] #### [facility] (DEFAULT) [address] [address]AFI (Bld) [#/Vol]8.38 10*3/uLNormal3.99-11.19[facility] HospitalComment on above:Order Comment: Prior to first Gamunex Infusion and then every 2 weeks.until results within normal limits. Collect weekly if baseline is abnormal.Performed By: #### IGS127 #### [facility] (DEFAULT) [address] [place] [address]NJN CREAon 10-41-5495Gkgmcmowvt [Mass/Vol]1.29 mg/dLHigh 0.50-1.20[facility] HospitalComment on above:Order Comment: Prior to first Gamunex Infusion and every 2 weeks if baseline CR is within normal limits.Performed By: #### BCR #### [facility] (DEFAULT) [address] [place] [address]YUO/1.73 sq M.predicted among non-blacks MDRD (S/P/Bld) [Vol rate/Area]48 mL/min/{1.73_m2}Low>=60[facility] Comment on above:Order Comment: Prior to first Gamunex Infusion and every 2 weeks if baseline CR is within normal limits.Result Comment: Reported eGFR is based on the CKD-EPI 2020 equation using creatinine, age, and sex.Performed By: #### BCR #### [facility] (DEFAULT) [address] [address]Rwek nitrogen [Mass/Vol]27 mg/dLHigh7-25[facility] Mary HospitalComment on above:Order Comment: Prior to first Gamunex Infusion and every 2 weeks if baseline CR is within normal limits.Performed By: #### BCR #### [facility] (DEFAULT) [address] [address]Sjry nitrogen/Creatinine [Mass ratio]21 mg/mgSelect Medical Specialty Hospital - Southeast OhioComment on above:Order Comment: Prior to first Gamunex Infusion and every 2 weeks if baseline CR is within normal limits. Performed By: #### BCR #### [facility] (DEFAULT) [address] [address]YNU AND ELECTRONIC DIFFon 66-11-2765Fqohpnamg (Bld) [#/Vol] 0.05 10*3/uLNormal0.00-0.15[facility] HospitalComment on above:Order Comment: Prior to first Gamunex Infusion and then every 2 weeks.until results within normal limits. Collect weekly if baseline is abnormal.Performed By: #### [id number] #### [facility] (DEFAULT) [address] [place] [address]Kuzfosdyc/100 WBC (Bld)0.6 %NormalMount St. Mary HospitalComment on above:Order Comment: Prior to first Gamunex Infusion and then every 2 weeks.until results within normal limits. Collect weekly if baseline is abnormal.Performed By: #### [id number] #### [facility] (DEFAULT) [address] [place] [address]QHLO STATUSElectronic DifferentialNoPremier Health Upper Valley Medical CenterComment on above:Order Comment: Prior to first Gamunex Infusion and then every 2 weeks.until results within normal limits. Collect weekly if baseline is abnormal.Performed By: #### [id number] #### [facility] (DEFAULT) [address] [address]Yujawhzauor (Bld) [#/Vol]0.23 10*3/uLNormal0.00-0.42[facility] HospitalComment on above:Order Comment: Prior to first Gamunex Infusion and then every 2 weeks.until results within normal limits. Collect weekly if baseline is abnormal.Performed By: #### [id number] #### [facility] (DEFAULT) [address] [address]Aqfbkprkgzj/100 WBC (Bld)2.6 %[facility] OhioComment on above:Order Comment: Prior to first Gamunex Infusion and then every 2 weeks.until results within normal limits. Collect weekly if baseline is abnormal.Performed By: #### [id number] #### [facility] (DEFAULT) [address] [address]Osmoazdxcy (Bld) [Volume fraction]34.0 %Low34.9-44.3[facility] Mary HospitalComment on above:Order Comment: Prior to first Gamunex Infusion and then every 2 weeks.until results within normal limits. Collect weekly if baseline is abnormal.Performed By: #### [id number] #### [facility] (DEFAULT) [address] [address]Nckuzjlzkf (Bld) [Mass/Vol]10.7 g/dLLow11.4-15.2[facility] HospitalComment on above:Order Comment: Prior to first Gamunex Infusion and then every 2 weeks.until results within normal limits. Collect weekly if baseline is abnormal.Performed By: #### [id number] #### [facility] (DEFAULT) [address] [address]Lohijaey Grans %0.2 %[facility] OhioComment on above:Order Comment: Prior to first Gamunex Infusion and then every 2 weeks.until results within normal limits. Collect weekly if baseline is abnormal.Performed By: #### [id number] #### [facility] (DEFAULT) [address] [address]Kwoogiih Grans Absolute<0.04Normal<=0.09[facility] HospitalComment on above:Order Comment: Prior to first Gamunex Infusion and then every 2 weeks.until results within normal limits. Collect weekly if baseline is abnormal.Performed By: #### [id number] #### [facility] (DEFAULT) [address] [address]Dlcbszmgrmz (Bld) [#/Vol]2.20 10*3/uLNormal1.16-3.51[facility] HospitalComment on above:Order Comment: Prior to first Gamunex Infusion and then every 2 weeks.until results within normal limits. Collect weekly if baseline is abnormal.Performed By: #### [id number] #### [facility] (DEFAULT) [address] [address]Bvxicyoiinp/100 WBC (Bld)24.5 %NormalMount St. Mary HospitalComment on above:Order Comment: Prior to first Gamunex Infusion and then every 2 weeks.until results within normal limits. Collect weekly if baseline is abnormal.Performed By: #### [id number] #### [facility] (DEFAULT) [address] [address]QLP (RBC) [Entitic vol]85.[address]k05.6-97[address] [facility] HospitalComment on above:Order Comment: Prior to first Gamunex Infusion and then every 2 weeks.until results within normal limits. Collect weekly if baseline is abnormal.Performed By: #### [id number] #### [facility] (DEFAULT) [address] [address]Rrin Cell Hgb26.[address]afcte11.9-33.9[facility] HospitalComment on above:Order Comment: Prior to first Gamunex Infusion and then every 2 weeks.until results within normal limits. Collect weekly if baseline is abnormal.Performed By: #### [id number] #### [facility] (DEFAULT) [address] [address]Rifg Cell Hgb Conc31.5 g/wONfrmty12.4-35.9[facility] HospitalComment on above:Order Comment: Prior to first Gamunex Infusion and then every 2 weeks.until results within normal limits. Collect weekly if baseline is abnormal.Performed By: #### [id number] #### [facility] (DEFAULT) [address] [address]Crgfrsrws (Bld) [#/Vol]0.41 10*3/uLNormal0.22-0.87[facility] HospitalComment on above:Order Comment: Prior to first Gamunex Infusion and then every 2 weeks.until results within normal limits. Collect weekly if baseline is abnormal.Performed By: #### [id number] #### [facility] (DEFAULT) [address] [address]Dknugvbsq/100 WBC (Bld)4.6 %NormalMount St. Mary HospitalComment on above:Order Comment: Prior to first Gamunex Infusion and then every 2 weeks.until results within normal limits. Collect weekly if baseline is abnormal.Performed By: #### [id number] #### [facility] (DEFAULT) [address] [address]Smaktiwsx RBC0.0 /[address] WBCNormal<=[address] [facility] HospitalComment on above:Order Comment: Prior to first Gamunex Infusion and then every 2 weeks.until results within normal limits. Collect weekly if baseline is abnormal.Performed By: #### [id number] #### [facility] (DEFAULT) [address] [address]Qdjckhju mean volume (Bld) [Entitic vol]9.8 fLNormal8.5-12.[address] [facility] HospitalComment on above:Order Comment: Prior to first Gamunex Infusion and then every 2 weeks.until results within normal li mits. Collect weekly if baseline is abnormal.Performed By: #### [id number] #### [facility] (DEFAULT) [address] [address]Equjuwhfo (Bld) [#/Vol]389 10*3/eAPvtpzu282-313ZuglMount St. Mary HospitalComment on above:Order Comment: Prior to first Gamunex Infusion and then every 2 weeks.until results within normal limits. Collect weekly if baseline is abnormal.Performed By: #### [id number] #### [facility] (DEFAULT) [address] [address]SDH (Bld) [#/Vol]3.98 10*6/uLNormal3.91-5.04[facility] HospitalComment on above:Order Comment: Prior to first Gamunex Infusion and then every 2 weeks.until results within normal limits. Collect weekly if baseline is abnormal.Performed By: #### [id number] #### [facility] (DEFAULT) [address] [address]TNR Ymabnjsmotmq75.8 %Oqixjp95.8-14.9OhOhio State University Wexner Medical CenterComment on above:Order Comment: Prior to first Gamunex Infusion and then every 2 weeks.until results within normal limits. Collect weekly if baseline is abnormal.Performed By: #### [id number] #### [facility] (DEFAULT) [address] [address]Vizg + Bands Auto67.5 %NormalMount St. Mary HospitalComment on above:Order Comment: Prior to first Gamunex Infusion and then every 2 weeks.until results within normal limits. Collect weekly if baseline is abnormal.Performed By: #### [id number] #### [facility] (DEFAULT) [address] [address]Meug + Bands,Absolute Auto6.07 K/uLNormal1.64-7.28OhOhio State University Wexner Medical CenterComment on above:Order Comment: Prior to first Gamunex Infusion and then every 2 weeks.until results within normal limits. Collect weekly if baseline is abnormal.Performed By: #### [id number] #### [facility] (DEFAULT) [address] [address]IXK (Bld) [#/Vol]8.98 10*3/uLNormal3.99-11.19[facility] Mary HospitalComment on above:Order Comment: Prior to first [facility] and then every 2 weeks.until results within normal limits. Collect weekly if baseline is abnormal.Performed By: #### [id number] #### [facility] (DEFAULT) [address] [address]OPI AND ELECTRONIC DIFFon 97-85-3254Shmmfdxeg (Bld) [#/Vol] 10*3/uLNormal0.00-0.15[facility] CenterComment on above:Order Comment: Prior to first [facility] and then every 2 weeks.until results within normal limits. Collect weekly if baseline is abnormal.Performed By: #### [id number] #### [facility] (DEFAULT) [address] [address]Xpalfgwuk/100 WBC (Bld)0.3 %[facility] OhioComment on above:Order Comment: Prior to first [facility] and then every 2 weeks.until results within normal limits. Collect weekly if baseline is abnormal.Performed By: #### [id number] #### [facility] (DEFAULT) [address] [address]UBAX STATUSElectronic DifferentialNormalOMercy Health St. Elizabeth Young[place] HospitalComment on above:Order Comment: Prior to first [facility] and then every 2 weeks.until results within normal limits. Collect weekly if baseline is abnormal.Performed By: #### [id number] #### [facility] (DEFAULT) [address] [address]Pcoccfqzjqi (Bld) [#/Vol]0.24 10*3/uLNormal0.00-0.42[facility] HospitalComment on above:Order Comment: Prior to first [facility] and then every 2 weeks.until results within normal limits. Collect weekly if baseline is abnormal.Performed By: #### [id number] #### [facility] (DEFAULT) [address] [address]Jpawfuspxmv/100 WBC (Bld)2.4 %[facility] OhioComment on above:Order Comment: Prior to first [facility] and then every 2 weeks.until results within normal limits. Collect weekly if baseline is abnormal.Performed By: #### [id number] #### [facility] (DEFAULT) [address] [address]Bjuguklioe (Bld) [Volume fraction]33.4 %Low34.9-44.3[facility] Mary HospitalComment on above:Order Comment: Prior to first [facility] and then every 2 weeks.until results within normal limits. Collect weekly if baseline is abnormal.Performed By: #### [id number] #### [facility] (DEFAULT) [address] [address]Qgbuvlohdb (Bld) [Mass/Vol]10.3 g/dLLow11.4-15.2[facility] HospitalComment on above:Order Comment: Prior to first [facility] and then every 2 weeks.until results within normal limits. Collect weekly if baseline is abnormal.Performed By: #### [id number] #### [facility] (DEFAULT) [address] [address]Yilegzqb Grans %0.2 %[facility] OhioComment on above:Order Comment: Prior to first [facility] and then every 2 weeks.until results within normal limits. Collect weekly if baseline is abnormal.Performed By: #### [id number] #### [facility] (DEFAULT) [address] [address]Gfnlbqzk Grans Absolute<0.04Normal<=0.09[facility] Mary HospitalComment on above:Order Comment: Prior to first [facility] and then every 2 weeks.until results within normal limits. Collect weekly if baseline is abnormal.Performed By: #### [id number] #### [facility] (DEFAULT) [address] [address]Klanwxhzolj (Bld) [#/Vol]2.87 10*3/uLNormal1.16-3.51[facility] HospitalComment on above:Order Comment: Prior to first [facility] and then every 2 weeks.until results within normal limits. Collect weekly if baseline is abnormal.Performed By: #### [id number] #### [facility] (DEFAULT) [address] [address]Ihndlfmkyph/100 WBC (Bld)29.1 %[facility] OhioComment on above:Order Comment: Prior to first [facility] and then every 2 weeks.until results within normal limits. Collect weekly if baseline is abnormal.Performed By: #### [id number] #### [facility] (DEFAULT) [address] [address]XVV (RBC) [Entitic vol]85.[address]qi98.6-97[address]7[facility] Mary HospitalComment on above:Order Comment: Prior to first [facility] and then every 2 weeks.until results within normal limits. Collect weekly if baseline is abnormal.Performed By: #### [id number] #### [facility] (DEFAULT) [address] [address]Feki Cell Hgb26.[address]vatsw30.9-33.9[facility] HospitalComment on above:Order Comment: Prior to first [facility] and then every 2 weeks.until results within normal limits. Collect weekly if baseline is abnormal.Performed By: #### [id number] #### U [facility] (DEFAULT) [address] [address]Ugqc Cell Hgb Conc30.8 g/dLLow31.4-35.9[facility] HospitalComment on above:Order Comment: Prior to first [facility] and then every 2 weeks.until results within normal limits. Collect weekly if baseline is abnormal.Performed By: #### [id number] #### [facility] (DEFAULT) [address] [address]Nzxldfacq (Bld) [#/Vol]0.37 10*3/uLNormal0.22-0.87[facility] HospitalComment on above:Order Comment: Prior to first [facility] and then every 2 weeks.until results within normal limits. Collect weekly if baseline is abnormal.Performed By: #### [id number] #### [facility] (DEFAULT) [address] [address]Jadhsesmt/100 WBC (Bld)3.7 %NormalMount St. Mary HospitalComment on above:Order Comment: Prior to first [facility] and then every 2 weeks.until results within normal limits. Collect weekly if baseline is abnormal.Performed By: #### [id number] #### [facility] (DEFAULT) [address] [address]Rnmzmgvea RBC0.0 /100 WBCNormal<=0[address] [facility] HospitalComment on above:Order Comment: Prior to first [facility] and then every 2 weeks.until results within normal limits. Collect weekly if baseline is abnormal.Performed By: #### [id number] #### [facility] (DEFAULT) [address] [address]Lvzfktkm mean volume (Bld) [Entitic vol]9.9 fLNormal8.5-12.[address] [facility] HospitalComment on above:Order Comment: Prior to first [facility] and then every 2 weeks.until results within normal li mits. Collect weekly if baseline is abnormal.Performed By: #### [id number] #### [facility] (DEFAULT) [address] [address]Pkhvobhxk (Bld) [#/Vol]346 10*3/gQMkzmbe229-831IfnfOhio State University Wexner Medical CenterComment on above:Order Comment: Prior to first [facility] and then every 2 weeks.until results within normal limits. Collect weekly if baseline is abnormal.Performed By: #### [id number] #### [facility] (DEFAULT) [address] [address]XAU (Bld) [#/Vol]3.92 10*6/uLNormal3.91-5.04[facility] HospitalComment on above:Order Comment: Prior to first [facility] and then every 2 weeks.until results within normal limits. Collect weekly if baseline is abnormal.Performed By: #### [id number] #### U [facility] (DEFAULT) [address] [address]XYI Zuczypvgxxuk54.1 %High10.8-14.9[facility] Mary HospitalComment on above:Order Comment: Prior to first [facility] and then every 2 weeks.until results within normal limits. Collect weekly if baseline is abnormal.Performed By: #### [id number] #### U [facility] (DEFAULT) [address] [address]Pxoq + Bands Auto64.3 %NormalMount St. Mary HospitalComment on above:Order Comment: Prior to first [facility] and then every 2 weeks.until results within normal limits. Collect weekly if baseline is abnormal.Performed By: #### [id number] #### U [facility] (DEFAULT) [address] [address]Aqbr + Bands,Absolute Auto6.34 K/uLNormal1.64-7.28[facility] Mary HospitalComment on above:Order Comment: Prior to first [facility] and then every 2 weeks.until results within normal limits. Collect weekly if baseline is abnormal.Performed By: #### [id number] #### [facility] (DEFAULT) [address] [address]KKM (Bld) [#/Vol]9.87 10*3/uLNormal3.99-11.19[facility] HospitalComment on above:Order Comment: Prior to first [facility] and then every 2 weeks.until results within normal limits. Collect weekly if baseline is abnormal.Performed By: #### [id number] #### U [facility] (DEFAULT) [address] [address]Svghonxznbysw metabolic 2000 panelon 88-34-8643Bymj Sensitivity Troponin I9 ng/LNormal<14Mount Replaced By [facility] AnsonComhelen [facility] on above:Performed By: #### 87154-4 #### [facility] [address] [place], [place] [address]Ryetgfs Auto test strip (Bld) [Mass/Vol]on 04-06-2021 Glucose [Mass/Vol]219 mg/uSLgop61-13Icnax Replaced By [facility] AnsonComment on above:Performed By: #### 86637-3 #### [facility] [address] [place], [place] [address]Qyjoets [Mass/Vol]245 mg/zJIeja25-84Ahlpn Replaced By [facility] AnsonComment on above:Performed By: #### 91615-8 #### [facility] [address] [place], [place] [address]Vbfbzyp [Mass/Vol]176 mg/fBZpdl11-10Tqjid Replaced By [facility] AnsonComment on above:Performed By: #### 32233-2 #### [facility] [address] [place], [place] [address]Vanktri [Mass/Vol]217 mg/gTUkho67-38Uqdyi [facility] on above:Performed By: #### 2340-8 #### [facility] [address] [place], [place] [address]YoW1k HPLC (Bld) [Mass fraction]on 93-82-7555DvY3a (Bld) [Mass fraction]11.8 %High<=5.6[facility] on above: Result Comment: HbA1c values of 5.7-6.4 percent indicate an increased risk for developing diabetes mellitus. HbA1c values greater than or equal to 6.5 percent are diagnostic of diabetes mellitus. For diagnosis of diabetes in individuals without unequivocal hyperglycemia, results should be confirmed by repeat testing.Performed By: #### 42517-9 #### [facility] [address] [place], [place] [address]Jdmr Bld Glu Estim.292 mg/dLNormalMount [facility] on above:Performed By: #### 65628-5 #### [facility] [address] [place], [place] [address]Fizbglum and platelets WO differential panel (Bld)on 74-76-9252Ikhxqrdai (Bld) [#/Vol]0.00 10*3/uLNormal0.00-0.20Mount Replaced By [facility] AnsonComment on above:Performed By: #### 06569-3 #### [facility] [address] [place], [place] [address]Qbswozjut/100 WBC (Bld)0.4 %Normal0.0-2.0Mount [facility] Hospitalment on above:Performed By: #### 06338-8 #### [facility] [address] [place], [place] [address]Mubaxemcmkl (Bld) [#/Vol]0.30 10*3/uLNormal0.00-0.70[facility] on above:Performed By: #### 25048-7 #### [facility] [address] [place], [place] [address]Hfgimapqube/100 WBC (Bld)3.5 %Normal0.0-7.0[facility] on above:Performed By: #### 33996-1 #### [facility] [address] [place], [place] [address]Eycswtkubis distribution width (RBC) [Ratio]15.3 %High 11.0-14.8[facility] on above:Performed By: #### 48510-4 #### [facility] [address] [place], [place] [address]Auuuovmaop (Bld) [Volume fraction]32.4 %Low35.0-45.0[facility] on above:Performed By: #### 03809-8 #### [facility] [address] [place], [place] [address]Trjsrmlgku (Bld) [Mass/Vol]10.8 g/dLLow12.0-16.0[facility] Anns WestervilleComment on above:Performed By: #### 99391-4 #### [facility] [address] [place], [place] [address]Fqwhmqojwtd (Bld) [#/Vol]3.10 10*3/uLNormal1.00-4.80Mount Replaced By [facility] AnsonComment on above:Performed By: #### 69765-1 #### [facility] [address] [place], [place] [address]Orkbnaoyudt/100 WBC (Bld)39.3 %Paggqn02.0-44.0Mount Replaced By [facility] AnsonComment on above:Performed By: #### 25178-9 #### [facility] [address] [place], [place] [address]EVJ75.2 nvfPwaijm66.0-34.0Mount Replaced By [facility] Comment on above:Performed By: #### 50652-2 #### [facility] [address] [place], [place] [address]IEVJ (RBC) [Mass/Vol]33.4 g/xKNlgwrx81.0-36.0Mount Replaced By [facility] AnsonComment on above:Performed By: #### 94208-1 #### [facility] [address] [place], [place] [address]KRU (RBC) [Entitic vol]81.4 yGSsxfcj24.0-97.0Mount Replaced By [facility] AnsonComment on above:Performed By: #### 85010-7 #### [facility] [address] [place], [place] [address]Gxbbcmffv (Bld) [#/Vol]0.50 10*3/uLNormal0.00-0.90[facility]ns WestervilleComment on above:Performed By: #### 84665-1 #### [facility] [address] [place], [place] [address]Nnppfhiuv/100 WBC (Bld)6.5 %Normal0.0-12.0Mount [facility] Westohiohealth dublin methodist hospitalilleComment on above:Performed By: #### 68983-6 #### [facility] [address] [place], [place] [address]Bkvthacziup Absolute4.00 K/mcLNormal1.80-7.70Mount [facility] Westohiohealth dublin methodist hospitalilleComment on above:Performed By: #### 82516-0 #### [facility] [address] [place], [place] [address]Mvnkgxpjkdr/100 WBC (Bld)50.3 %Ajkzaq12.0-70.0Mount [facility] Westfirelands regional medical center south campusComment on above:Performed By: #### 70541-5 #### [facility] [address] [place], [place] [address]Huvxhxqq mean volume (Bld) [Entitic vol]6.6 fLNormal 6.2-12.1Mount [facility] Westohiohealth dublin methodist hospitalilleComment on above:Performed By: #### 14011-2 #### [facility] [address] [place], [place] [address]Mhzefsqjo (Bld) [#/Vol]356 10*3/gRTcbtto544-016Abywf [facility] Westfirelands regional medical center south campusComment on above:Performed By: #### 48926-4 #### [facility] [address] [place], [place] [address]TNJ (Bld) [#/Vol]3.98 10*6/uLNormal3.80-5.10Mount [facility] Westfirelands regional medical center south campusComment on above:Performed By: #### 00842-1 #### [facility] [address] [place], [place] [address]CPC (Bld) [#/Vol]7.9 10*3/uLNormal4.6-10.2Mount [facility] Hospitalment on above:Performed By: #### 53424-3 #### [facility] [address] [place], [place] [address]SO STRESS TEST WITH MYOCARDIAL PERFUSIONon 13-53-8725XL STRESS TEST WITH MYOCARDIAL PERFUSIONThis is a [...] 71 109 78 161 85 1.0 67 46901.0 138 67NormalMount Replaced By [facility] AnsonTropinin I.cardiac panel High sensitivity methodon 04-97-0206Eiho Sensitivity Troponin I9 ng/LNormal<14[facility] on above:Performed By: #### 90660-3 #### [facility] [address] [place], [place] [address]Bwrab metabolic 2000 panelon 84-42-8543Unue Sensitivity Troponin I6 ng/LNormal<14[facility] on above: Performed By: #### 22863-4 #### [facility] [address] [place], [place] [address]Llvnikzw and platelets WO differential panel (Bld)on 87-67-6839Zatdgwwsj (Bld) [#/Vol]0.00 10*3/uLNormal0.00-0.20Mount [facility] Hospitalment on above:Performed By: #### 20996-8 #### [facility] [address] [place], [place] [address]Ecjbrcqxm/100 WBC (Bld)0.5 %Normal0.0-2.0Mount Replaced By [facility] AnsonComment on above:Performed By: #### 77434-9 #### [facility] [address] [place], [place] [address]Vtzhgsyoqhi (Bld) [#/Vol]0.20 10*3/uLNormal0.00-0.70Mount Replaced By [facility] AnsonComment on above:Performed By: #### 63132-9 #### [facility] [address] [place], [place] [address]Vnbyjjsizar/100 WBC (Bld)2.1 %Normal0.0-7.0Mount Replaced By [facility] AnsonComment on above:Performed By: #### 71249-3 #### [facility] [address] [place], [place] [address]Ccgvfjqtlmk distribution width (RBC) [Ratio]15.4 %High 11.0-14.8Mount Replaced By [facility] AnsonComment on above:Performed By: #### 03168-0 #### [facility] [address] [place], [place] [address]Fugbzzievp (Bld) [Volume fraction]33.6 %Low35.0-45.0Mount Replaced By [facility] AnsonComment on above:Performed By: #### 37375-2 #### [facility] [address] [place], [place] [address]Lqrhlxtljk (Bld) [Mass/Vol]11.1 g/dLLow12.0-16.0Mount Replaced By [facility] AnsonComment on above:Performed By: #### 41061-3 #### [facility] [address] [place], [place] [address]Hxmavyeofln (Bld) [#/Vol]2.80 10*3/uLNormal1.00-4.80Mount Replaced By [facility] AnsonComment on above:Performed By: #### 75095-4 #### [facility] [address] [place], [place] [address]Cazupvhfvws/100 WBC (Bld)28.2 %Rcczst45.0-44.0Mount Replaced By [facility] AnsonComment on above:Performed By: #### 31747-7 #### [facility] [address] [place], [place] [address]TZY46.7 hvwRvpvuh03.0-34.0Mount Replaced By [facility] Comment on above:Performed By: #### 02761-5 #### [facility] [address] [place], [place] [address]DNGS (RBC) [Mass/Vol]33.2 g/nURvpycx74.0-36.0Mount Replaced By [facility] AnsonComment on above:Performed By: #### 07148-8 #### [facility] [address] [place], [place] [address]EMV (RBC) [Entitic vol]83.2 uHHycdgz72.0-97.0Mount Replaced By [facility] AnsonComment on above:Performed By: #### 10937-8 #### [facility] [address] [place], [place] [address]Qcufkpkhz (Bld) [#/Vol]0.50 10*3/uLNormal0.00-0.90Mount Replaced By [facility] AnsonComment on above:Performed By: #### 69765-9 #### [facility] [address] [place], [place] [address]Ksgmmqxrt/100 WBC (Bld)5.2 %Normal0.0-12.0Mount Replaced By [facility] AnsonComment on above:Performed By: #### 86572-5 #### [facility] [address] [place], [place] [address]Jlazhjfnncv Absolute6.30 K/mcLNormal1.80-7.70Mount Replaced By [facility] AnsonComment on above:Performed By: #### 25362-9 #### [facility] [address] [place], [place] [address]Drixrrvbiog/100 WBC (Bld)64.0 %Zmmyyc56.0-70.0Mount Replaced By [facility] AnsonComment on above:Performed By: #### 39347-3 #### [facility] [address] [place], [place] [address]Xexcukpa mean volume (Bld) [Entitic vol]6.9 fLNormal 6.2-12.1Mount Replaced By [facility] AnsonComment on above:Performed By: #### 19646-8 #### [facility] [address] [place], [place] [address]Wualoanmf (Bld) [#/Vol]386 10*3/tJEzwtef612-526Vjzzz Replaced By [facility] AnsonComment on above:Performed By: #### 19508-7 #### [facility] [address] [place], [place] [address]YWU (Bld) [#/Vol]4.03 10*6/uLNormal3.80-5.10Mount Replaced By [facility] AnsonComment on above:Performed By: #### 10294-1 #### [facility] [address] [place], [place] [address]RLS (Bld) [#/Vol]9.8 10*3/uLNormal4.6-10.2Mount Replaced By [facility] AnsonComment on above:Performed By: #### 33350-4 #### [facility] [address] [place], [place] [address]Tekxbkokqlo peptide B [Mass/Vol]on 37-50-2946TBB06 pcg/mL Normal0-100[facility] on above:Result Comment: <100: CHF is unlikely 100-400: Possible left ventricular dysfunction-unlikely acute decompensation >400: Suspicious for decompensated heart failurePerformed By: #### 21792-9 #### [facility] [address] [place], [place] [address]FWGJ-OlV-3 RNA Resp Ql CAL+probeon 21-78-5395EASI-CoV-2 (COVID-19) RNA CAL+probe Ql (Resp)Not detectedNormalNot DetectedMount Replaced By [facility] AnsonComment on above:Performed By: #### 52447-2 #### [facility] [address] [place], [place] [address]RRVAFRIHYEPOY ECHOCARDIOGRAM (TTE) COMPLETE (CONTRAST/BUBBLE/3D PRN)on 80-73-9281YTSJFTTRZXENW ECHOCARDIOGRAM (TTE) COMPLETE (CONTRAST/BUBBLE/3D PRN)This is a [...] 12 36 27 1.1 30 10 1.68NormalMount Replaced By [facility] AnsonTropinin I.cardiac panel High sensitivity methodon 50-44-1472Wmfj Sensitivity Troponin I12 ng/LNormal<14[facility] on above:Performed By: #### 91484-1 #### [facility] [address] [place], [place] [address]Fnmnhwyntk dipstick W Reflex Culture panel (U)on 04-05-2021 Bilirubin, UrineNegativeNormalNegativeInunt Replaced By [facility] AnsonComhelen [facility] on above:Performed By: #### 47821-8 #### [facility] [address] [place], [place] [address]Eebnk, UrineNegativeNormalNegativeMount Replaced By [facility] AnsonComment on above:Performed By: #### 63744-3 #### [facility] [address] [place], [place] [address]Qbpaqib (U)ClearNormalClearMount Replaced By [facility] AnsonComhelen [facility] on above:Performed By: #### 99294-6 #### [facility] [address] [place], [place] [address]Wrsin (U)StrawAbnormalYellowMount Replaced By [facility] AnsonComment on above:Performed By: #### 97341-6 #### [facility] [address] [place], [place] [address]Mswtxgk Ql (U)>=500AbnormalNormalMount [facility] Westohiohealth dublin methodist hospitalilleComment on above:Performed By: #### 48980-0 #### [facility] [address] [place], [place] [address]Kwuexhv Ql (U)NegativeNormalNegativeMount [facility] Westohiohealth dublin methodist hospitalilleComment on above:Performed By: #### 97368-9 #### [facility] [address] [place], [place] [address]Egzsmyvtkx, UrineNegativeNormalNegativeMount [facility] Westfirelands regional medical center south campusComment on above:Performed By: #### 77656-2 #### [facility] [address] [place], [place] [address]Esrhfrg, UrineNegativeNormalNegativeMount [facility] Westfirelands regional medical center south campusComment on above:Performed By: #### 03236-1 #### [facility] [address] [place], [place] [address]fX (U)7.0 [pH]Normal5.0-8.0Mount [facility] Westfirelands regional medical center south campusComment on above:Performed By: #### 06493-0 #### [facility] [address] [place], [place] [address]Gwjqvgq, UrineNegativeNormalNegativeMount [facility] Westfirelands regional medical center south campusComment on above:Performed By: #### 35817-9 #### [facility] [address] [place], [place] [address]Erqgrtcn [place] Urine1.495Vcwtxa8.002-1.030Mount [facility] Westfirelands regional medical center south campusComment on above:Performed By: #### 51336-9 #### [facility] [address] [place], [place] [address]Hxsydtdkxcxc, UrineNormalNormalNormalMount Replaced By [facility] AnsonComment on above:Performed By: #### 62866-5 #### [facility] ([facility] [address] [place], [place] [address]UK CHEST 1 VIEWon 50-07-2630IH CHEST 1 VIEWEXAMINATION TYPE: XR CHEST 1 [...] By: Self Edit Transcribed Date: 04/05/2021 14:59NormalMount Replaced By [facility] AnsonXR HAND LEFT 3+ VIEWSon 34-44-5905AD HAND LEFT 3+ VIEWSEXAM TYPE: XR HAND [...] joints of the second, third and fourth fingers.NormalOhioHealth(NO DIFF)on 03-15-2021 Erythrocyte distribution width (RBC) [Ratio]15.2 %High11.5-14.5AGuernsey Memorial HospitalComment on above:Performed By: #### HEMOG, CMPF, LIP2, RTSH, T42 #### Testing performed at [address] [address]Inxdydbwsx (Bld) [Volume fraction]34.3 %Low36.0-48.0[facility] HospitalComment on above:Performed By: #### HEMOG, CMPF, LIP2, RTSH, T42 #### Testing performed at [address] [address]Hvtcbqarbi (Bld) [Mass/Vol]11.1 g/dLLow12.0-16.0[facility] HospitalComment on above:Performed By: #### HEMOG, CMPF, LIP2, RTSH, T42 #### Testing performed at [address] [address]NXV (RBC) [Entitic mass]27.0 xyZajcjr48.0-35.0[facility] HospitalComment on above:Performed By: #### HEMOG, CMPF, LIP2, RTSH, T42 #### Testing performed at [address] [address]NGYV (RBC) [Mass/Vol]32.4 g/jKVgkqtd48.0-37.0[facility] HospitalComment on above:Performed By: #### HEMOG, CMPF, LIP2, RTSH, T42 #### Testing performed at [address] [address]PCP (RBC) [Entitic vol]83.4 mPBoalxi47.0-100.0[facility] HospitalComment on above:Performed By: #### HEMOG, CMPF, LIP2, RTSH, T42 #### Testing performed at [address] [address]Votcjprd mean volume (Bld) [Entitic vol]7.1 fLLow7.4-11.0[facility] HospitalComment on above:Result Comment: Testing performed at [place] [id number] By: #### HEMOG, CMPF, LIP2, RTSH, T42 #### Testing performed at [address] [address]Zfitucyve (Bld) [#/Vol]339 10*3/dMAkuice400.0-400.0[facility] HospitalComment on above:Performed By: #### HEMOG, CMPF, LIP2, RTSH, T42 #### Testing performed at [place] [id number] (Bld) [#/Vol]4.11 10*6/uLNormal4.0-5.4AGuernsey [facility] Hospital Comment on above:Performed By: #### HEMOG, CMPF, LIP2, RTSH, T42 #### Testing performed at [address] [address]DVZ (Bld) [#/Vol]6.8 10*3/uLNormal3.6-11.0[facility] Comment on above:Performed By: #### HEMOG, CMPF, LIP2, RTSH, T42 #### Testing performed at [address] [address]GOK FASTINGon 2A:G RATIO1.1 RATIOLow1.3-2.2AGuernsey Memorial HospitalComment on above:Performed By: #### HEMOG, CMPF, LIP2, RTSH, T42 #### Testing performed at [place] [id number] G/dlNormal3.5-5.0[facility] HospitalComment on above:Performed By: #### HEMOG, CMPF, LIP2, RTSH, T42 #### Testing performed at [address] [address]DPU [Catalytic activity/Vol]113 U/XXbincq74-827ByhqdMercy Health St. Elizabeth [facility] HospitalComment on above:Performed By: #### HEMOG, CMPF, LIP2, RTSH, T42 #### Testing performed at [address] [place] [address]WJM [Catalytic activity/Vol]14 U/LNormal<35[facility] Comment on above:Performed By: #### HEMOG, CMPF, LIP2, RTSH, T42 #### Testing performed at [address] [place] [address]CXS [Catalytic activity/Vol]19 U/DWpsytt79-24IkxciMercy Health St. Elizabeth [facility] HospitalComment on above:Performed By: #### HEMOG, CMPF, LIP2, RTSH, T42 #### Testing performed at [address] [address]Trigwwhvl [Mass/Vol]0.4 mg/dLNormal0.2-1.3AGuernsey Memorial Hospital Comment on above:Performed By: #### HEMOG, CMPF, LIP2, RTSH, T42 #### Testing performed at [address] [address]Sdnxzwn [Mass/Vol]9.6 mg/dLNormal8.4-10.2AGuernsey Memorial Hospital Comment on above:Performed By: #### HEMOG, CMPF, LIP2, RTSH, T42 #### Testing performed at [address] [place] [address]Dynwqwoy [Moles/Vol]105 mmol/CErukgw95-833NeouaMercy Health St. [facility] Comment on above:Result Comment: Please note: Triglyceride levels of 600mg/dL or higher may positively bias chlorideresults by approximately 2.1 mmolPerformed By: #### HEMOG, CMPF, LIP2, RTSH, T42 #### Testing performed at [address] [place] [address]JZ5 [Moles/Vol]24 mmol/MXzbugj94-31EilxjMercy Health St. Elizabeth [facility] HospitalComment on above:Performed By: #### HEMOG, CMPF, LIP2, RTSH, T42 #### Testing performed at [place] [id number] [Mass/Vol]1.20 mg/dLNormal0.7-1.2AGuernsey Memorial HospitalComment on above:Performed By: #### HEMOG, CMPF, LIP2, RTSH, T42 #### Testing performed at [address] [address]MFX. GFR, Xeihopep02 ml/min/1.73sq.mNAdvanced Care Hospital of Southern New MexicoComment on above:Performed By: #### HEMOG, CMPF, LIP2, RTSH, T42 #### Testing performed at [place] [id number]. GFR,Non Jnrwjaan31 ml/min/1.73sq.[facility] HospitalComment on above:Performed By: #### HEMOG, CMPF, LIP2, RTSH, T42 #### Testing performed at [address] [address]PEC InformationAverage GFR for 50-59 years old = 93.[facility] HospitalComment on above:Result Comment: Chronic Kidney disease, GFR = <60. Kidney failure, GFR = <15. The GFR estimate is not adjusted for extreme body surface area or acute process, nor has it been validated for women or ethnic groups other than and . Testing performed at [place], [place] [address]Josvenlff By: #### HEMOG, CMPF, LIP2, RTSH, T42 #### Testing performed at [address] [address]Hdjgare [Mass/Vol]222 mg/uIZjgq70-721YpasuMercy Health St. [facility] Comment on above:Result Comment: NORMAL <100 mg/dL PREDIABETES 101-126 mg/dL DIABETES 126 mg/dL or higherPerformed By: #### HEMOG, CMPF, LIP2, RTSH, T42 #### Testing performed at [address] [address]Vaqmqgdlo [Moles/Vol]4.5 mmol/LNormal3.5-5.1AGuernsey Memorial HospitalComment on above:Performed By: #### HEMOG, CMPF, LIP2, RTSH, T42 #### Testing performed at [address] [address]Bietyxd [Mass/Vol]7.3 g/dLNormal6.3-8.2AGuernsey [facility] Hospital Comment on above:Performed By: #### HEMOG, CMPF, LIP2, RTSH, T42 #### Testing performed at [address] [address]Dxdmbj [Moles/Vol]139 mmol/KXvwvgb892-511NmlctMercy Health St. [facility] Comment on above:Performed By: #### HEMOG, CMPF, LIP2, RTSH, T42 #### Testing performed at [address] [address]Ulnn nitrogen [Mass/Vol]26 mg/dLFairmont Regional Medical Center7-20[facility] Comment on above:Performed By: #### HEMOG, CMPF, LIP2, RTSH, T42 #### Testing performed at [address] [address]TXYE T4on 38-51-7967Yrns T4 [Mass/Vol]1.07 ng/dLNormal0.78-2.[address] [facility] HospitalComment on above:Result Comment: Testing performed at [place], [place] [address]Ltfvgqjoz By: #### HEMOG, CMPF, LIP2, RTSH, T42 #### Testing performed at [address] [address]AFIFXIOYQR A1Con 69-07-8817Siqarcx [Mass/Vol]289 mg/dLNormal [facility] HospitalHbA1c (Bld) [Mass fraction]11.7 %High0-6AGuernsey Memorial HospitalComment on above:Result Comment: NORMAL <5.7% PREDIABETES 5.7-6.4% DIABETES 6.5% OR HIGHERLIPID PROFILEon 63-50-0416Koivbgunbla [Mass/Vol]226 mg/dL Zhbt126-862MznlfMercy Health St. Elizabeth [facility] HospitalComment on above:Performed By: #### HEMOG, CMPF, LIP2, RTSH, T42 #### Testing performed at [address] [address]Dtafhmumfjh in HDL [Mass/Vol]48 mg/nBUhslwf91-77FrnzkMercy Health St. Elizabeth [facility] HospitalComment on above:Performed By: #### HEMOG, CMPF, LIP2, RTSH, T42 #### Testing performed at [address] [address]Gugkcjmnviw in LDL [Mass/Vol]143 mg/dLNormalAGuernsey Memorial HospitalComment on above:Performed By: #### HEMOG, CMPF, LIP2, RTSH, T42 #### Testing performed at [address] [address]Hndupyepere in VLDL [Mass/Vol]35 mg/dLHigh5.0-25[facility] HospitalComment on above:Performed By: #### HEMOG, CMPF, LIP2, RTSH, T42 #### Testing performed at [address] [address]Gwvaqqmrdsg.total/Cholesterol in HDL [Mass ratio]4.71 {ratio} NormalMercy Health St. Elizabeth Young[facility] HospitalComment on above:Result Comment: RISK TOTAL/HDL RATIO MEN WOMEN 1/2 AVERAGE 3.43 3.27 AVERAGE 4.97 4.44 2X AVERAGE 9.55 7.05 3X AVERAGE 23.99 11.04 Testing performed at [place], [place] [address]Zchsyttjd By: #### HEMOG, CMPF, LIP2, RTSH, T42 #### Testing performed at [address] [address]Mbtzzuqgekbz [Mass/Vol]174 mg/dLHigh0-150[facility] Comment on above:Performed By: #### HEMOG, CMPF, LIP2, RTSH, T42 #### Testing performed at [address] [address]PHCE/CREAT RATIO,URINEon 76-37-6375AWND/CREAT RATIO,BLLNX626.2 mg MALB/g CREATHigh1.3-30.0[facility] HospitalComment on above:Result Comment: Testing performed at [place] [address]Performed By: #### MCRAT #### Testing performed at [place] [id number],RANDOM QTEAH217.1 mg/LHigh0-16.7AGuernsey Memorial HospitalComment on above:Performed By: #### MCRAT #### Testing performed at [place] [address]33URINE CREATININE MFRBMH906.5 MG/DLNormalAGuernsey Memorial Hospital Comment on above:Result Comment: NO NORMAL VALUES ESTABLISHED FOR RANDOM SPECIMENSPerformed By: #### MCRAT #### Testing performed at [address] [address]VKB,REFLEX FREE T4on 09-99-3073CBK,REFLEX FREE T47.180 uIU/ML High0.46-4.68[facility] HospitalComment on above:Result Comment: Testing performed at [place] [address]Performed By: #### HEMOG, CMPF, LIP2, RTSH, T42 #### Testing performed at [place] [address]BUN CREAon 60-38-8259Bfrswbzipt [Mass/Vol]1.16 mg/dLNormal 0.50-1.20[facility] HospitalComment on above:Order Comment: Prior to first [facility] and every 2 weeks if baseline CR is within normal limits.Performed By: #### BCR #### [facility] (DEFAULT) [address] [address]XRZ GFR, Ksrumkwj01 mL/min/1.73sqMLow>=60OhOhio State University Wexner Medical CenterComment on above:Order Comment: Prior to first [facility] and every 2 weeks if baseline CR is within normal limits. Performed By: #### BCR #### [facility] (DEFAULT) [address] [address]SNM GFR,Non Yanrocjm90 mL/min/1.73sqMLow>=60[facility] St[facility] HospitalComment on above:Order Comment: Prior to first [facility] and every 2 weeks if baseline CR is within normal limits. Performed By: #### BCR #### [facility] (DEFAULT) [address] [address]Crbg nitrogen [Mass/Vol]19 mg/dLNormal7-25[facility] St. Mary HospitalComment on above:Order Comment: Prior to first [facility] and every 2 weeks if baseline CR is within normal limits. Performed By: #### BCR #### [facility] (DEFAULT) [address] [address]Lbop nitrogen/Creatinine [Mass ratio]16 mg/mgSelect Medical Specialty Hospital - Southeast [place]Comment on above:Order Comment: Prior to first [facility] and every 2 weeks if baseline CR is within normal limits. Performed By: #### BCR #### [facility] (DEFAULT) [address] [address]PYT AND ELECTRONIC DIFFon 95-75-9923Hphciqucn (Bld) [#/Vol] 10*3/uLNormal0.00-0.15[facility] HospitalComment on above:Order Comment: Prior to first [facility] and every 2 weeks if baseline CR is within normal limits.Performed By: #### BCR #### [facility] (DEFAULT) [address] [address]Bjndrjmpp/100 WBC (Bld)0.2 %NormalMount St. Mary HospitalComment on above:Order Comment: Prior to first [facility] and every 2 weeks if baseline CR is within normal limits.Performed By: #### BCR #### [facility] (DEFAULT) [address] [address]YLCD STATUSElectronic DifferentialNoPremier Health Upper Valley Medical CenterComment on above:Order Comment: Prior to first [facility] and every 2 weeks if baseline CR is within normal limits.Performed By: #### BCR #### [facility] (DEFAULT) [address] [place] [address]Urfjefrxdfm (Bld) [#/Vol]0.21 10*3/uLNormal0.00-0.42[facility] HospitalComment on above:Order Comment: Prior to first [facility] and every 2 weeks if baseline CR is within normal limits. Performed By: #### BCR #### [facility] (DEFAULT) [address] [place] [address]Swshicyhrqc/100 WBC (Bld)2.3 %[facility] [place]Comment on above:Order Comment: Prior to first [facility] and every 2 weeks if baseline CR is within normal limits.Performed By: #### BCR #### [facility] (DEFAULT) [address] [address]Gbporwuxaw (Bld) [Volume fraction]32.6 %Low34.9-44.3[facility] HospitalComment on above:Order Comment: Prior to first [facility] and every 2 weeks if baseline CR is within normal limits. Performed By: #### BCR #### [facility] (DEFAULT) [address] [address]Lnvgqujqls (Bld) [Mass/Vol]10.2 g/dLLow11.4-15.2[facility] HospitalComment on above:Order Comment: Prior to first [facility] and every 2 weeks if baseline CR is within normal limits. Performed By: #### BCR #### [facility] (DEFAULT) [address] [place] [address]Iqzusfjy Grans %0.2 %[facility] OhioComment on above:Order Comment: Prior to first [facility] and every 2 weeks if baseline CR is within normal limits.Performed By: #### BCR #### [facility] (DEFAULT) [address] [address]Qkjvoqrm Grans Absolute<0.04Normal<=0.09[facility] HospitalComment on above:Order Comment: Prior to first [facility] and every 2 weeks if baseline CR is within normal limits.Performed By: #### BCR #### [facility] (DEFAULT) [address] [address]Wopnybtvlkm (Bld) [#/Vol]2.26 10*3/uLNormal1.16-3.51[facility] HospitalComment on above:Order Comment: Prior to first [facility] and every 2 weeks if baseline CR is within normal limits. Performed By: #### BCR #### [facility] (DEFAULT) [address] [address]Btbnabwsxpa/100 WBC (Bld)25.3 %NormalMount St. Mary HospitalComment on above:Order Comment: Prior to first [facility] and every 2 weeks if baseline CR is within normal limits.Performed By: #### BCR #### [facility] (DEFAULT) [address] [address]RII (RBC) [Entitic vol]86.[address]va52.6-97[address]7[facility] [address] HospitalComment on above:Order Comment: Prior to first [facility] and every 2 weeks if baseline CR is within normal limits. Performed By: #### BCR #### [facility] (DEFAULT) [address] [address]Pbnx Cell Hgb27.[address]nty15.9-33.9[facility] HospitalComment on above:Order Comment: Prior to first [facility] and every 2 weeks if baseline CR is within normal limits.Performed By: #### BCR #### [facility] (DEFAULT) [address] [address]Slcg Cell Hgb Conc31.3 g/dLLow31.4-35.9[facility] HospitalComment on above:Order Comment: Prior to first [facility] and every 2 weeks if baseline CR is within normal limits.Performed By: #### BCR #### [facility] (DEFAULT) [address] [place] [address]Wzqydcvim (Bld) [#/Vol]0.44 10*3/uLNormal0.22-0.87[facility] HospitalComment on above:Order Comment: Prior to first [facility] and every 2 weeks if baseline CR is within normal limits. Performed By: #### BCR #### [facility] (DEFAULT) [address] [place] [address]Qzmbzgqdb/100 WBC (Bld)4.9 %NormalMount St. Mary HospitalComment on above:Order Comment: Prior to first [facility] and every 2 weeks if baseline CR is within normal limits.Performed By: #### BCR #### [facility] (DEFAULT) [address] [place] [address]Evdyqrfgh RBC0.0 /[address]BCNormal<=0[address] [facility] HospitalComment on above:Order Comment: Prior to first [facility] and every 2 weeks if baseline CR is within normal limits.Performed By: #### BCR #### [facility] (DEFAULT) [address] [place] [address]Acxktauc mean volume (Bld) [Entitic vol]9.7 fLNormal8.5-12.[address] [facility] HospitalComment on above:Order Comment: Prior to first [facility] and every 2 weeks if baseline CR is within normal angel its.Performed By: #### BCR #### [facility] (DEFAULT) [address] [place] [address]Tlvcqpovs (Bld) [#/Vol]350 10*3/gXNcaivu849-014OaboMount St. Mary HospitalComment on above:Order Comment: Prior to first [facility] and every 2 weeks if baseline CR is within normal limits. Performed By: #### BCR #### [facility] (DEFAULT) [address] [place] [address]HGV (Bld) [#/Vol]3.78 10*6/uLLow3.91-5.04[facility] HospitalComment on above:Order Comment: Prior to first [facility] and every 2 weeks if baseline CR is within normal limits.Performed By: #### BCR #### [facility] (DEFAULT) [address] [address]PMV Rpmbjjlftrie33.6 %Fewuwl47.8-14.9[facility] HospitalComment on above:Order Comment: Prior to first [facility] and every 2 weeks if baseline CR is within normal limits.Performed By: #### BCR #### [facility] (DEFAULT) [address] [address]Rlvg + Bands Auto67.1 %NormalMount St. Mary HospitalComment on above:Order Comment: Prior to first [facility] and every 2 weeks if baseline CR is within normal limits.Performed By: #### BCR #### [facility] (DEFAULT) [address] [address]Lydl + Bands,Absolute Auto5.99 K/uLNormal1.64-7.28[facility] HospitalComment on above:Order Comment: Prior to first [facility] and every 2 weeks if baseline CR is within normal limits. Performed By: #### BCR #### [facility] (DEFAULT) [address] [address]EJW (Bld) [#/Vol]8.94 10*3/uLNormal3.99-11.19[facility] HospitalComment on above:Order Comment: Prior to first [facility] and every 2 weeks if baseline CR is within normal limits. Performed By: #### BCR #### [facility] (DEFAULT) [address] [address]EYH CREAon 71-01-8048Kfvwkaxged [Mass/Vol]1.19 mg/dLNormal 0.50-1.20[facility] HospitalComment on above:Order Comment: Prior to first [facility] and every 2 weeks if baseline CR is within normal limits.Performed By: #### BCR #### [facility] (DEFAULT) [address] [place] [address]BDJ GFR, Xzykxbvz03 mL/min/1.73sqMLow>=60[facility] HospitalComment on above:Order Comment: Prior to first [facility] and every 2 weeks if baseline CR is within normal limits. Performed By: #### BCR #### [facility] (DEFAULT) [address] [place] [address]JRO GFR,Non Roizgajx80 mL/min/1.73sqMLow>=60[facility] HospitalComment on above:Order Comment: Prior to first [facility] and every 2 weeks if baseline CR is within normal limits. Performed By: #### BCR #### [facility] (DEFAULT) [address] [address]Xgyp nitrogen [Mass/Vol]28 mg/dLHigh7-25[facility] HospitalComment on above:Order Comment: Prior to first [facility] and every 2 weeks if baseline CR is within normal limits.Performed By: #### BCR #### [facility] (DEFAULT) [address] [address]Qvtz nitrogen/Creatinine [Mass ratio]24 mg/mgNormalOMercy Health St. Elizabeth [facility] HospitalComment on above:Order Comment: Prior to first [facility] and every 2 weeks if baseline CR is within normal limits. Performed By: #### BCR #### [facility] (DEFAULT) [address] [place] [address]UNA AND ELECTRONIC DIFFon 16-42-2487Lobpdrgyk (Bld) [#/Vol] 0.05 10*3/uLNormal0.00-0.15[facility] HospitalComment on above:Order Comment: Prior to first [facility] and every 2 weeks if baseline CR is within normal limits.Performed By: #### BCR #### [facility] (DEFAULT) [address] [place] [address]Lxblfxxec/100 WBC (Bld)0.6 %[facility] [place]Comment on above:Order Comment: Prior to first [facility] and every 2 weeks if baseline CR is within normal limits.Performed By: #### BCR #### U [facility] (DEFAULT) [address] [address]LYLD STATUSElectronic DifferentialNormalOhio Select Medical Specialty Hospital - CincinnatiComment on above:Order Comment: Prior to first [facility] and every 2 weeks if baseline CR is within normal limits.Performed By: #### BCR #### [facility] (DEFAULT) [address] [address]Lpkwscykgee (Bld) [#/Vol]0.16 10*3/uLNormal0.00-0.42[facility] HospitalComment on above:Order Comment: Prior to first [facility] and every 2 weeks if baseline CR is within normal limits. Performed By: #### BCR #### [facility] (DEFAULT) [address] [address]Fufbgpxseuz/100 WBC (Bld)1.8 %[facility] [place]Comment on above:Order Comment: Prior to first [facility] and every 2 weeks if baseline CR is within normal limits.Performed By: #### BCR #### U [facility] (DEFAULT) [address] [address]Cygrzquhns (Bld) [Volume fraction]34.7 %Low34.9-44.3[facility] HospitalComment on above:Order Comment: Prior to first [facility] Infusion and every 2 weeks if baseline CR is within normal limits. Performed By: #### BCR #### [facility] (DEFAULT) [address] [address]Zfppupzghq (Bld) [Mass/Vol]11.0 g/dLLow11.4-15.2[facility] HospitalComment on above:Order Comment: Prior to first [facility]fusion and every 2 weeks if baseline CR is within normal limits. Performed By: #### BCR #### [facility] (DEFAULT) [address] [address]Oeialltg Grans %0.1 %NormalMount St. Mary HospitalComment on above:Order Comment: Prior to first [facility] Infusion and every 2 weeks if baseline CR is within normal limits.Performed By: #### BCR #### [facility] (DEFAULT) [address] [address]Kvbwnctn Grans Absolute<0.04Normal<=0.09[facility] HospitalComment on above:Order Comment: Prior to first [facility] Infusion and every 2 weeks if baseline CR is within normal limits.Performed By: #### BCR #### [facility] (DEFAULT) [address] [address]Beyjrwuumuo (Bld) [#/Vol]2.61 10*3/uLNormal1.16-3.51[facility] HospitalComment on above:Order Comment: Prior to first [facility]fusion and every 2 weeks if baseline CR is within normal limits. Performed By: #### BCR #### [facility] (DEFAULT) [address] [address]Dgtuxenqaqv/100 WBC (Bld)29.4 %[facility] [place]Comment on above:Order Comment: Prior to first [facility] and every 2 weeks if baseline CR is within normal limits.Performed By: #### BCR #### [facility] (DEFAULT) [address] [address]EIE (RBC) [Entitic vol]85.[address]16[address]6-97[address] [facility] HospitalComment on above:Order Comment: Prior to first [facility] and every 2 weeks if baseline CR is within normal limits. Performed By: #### BCR #### [facility] (DEFAULT) [address] [address]Sxya Cell Hgb27.[address]w84.9-33.9[facility] HospitalComment on above:Order Comment: Prior to first [facility]fusion and every 2 weeks if baseline CR is within normal limits.Performed By: #### BCR #### [facility] (DEFAULT) [address] [address]Zwgj Cell Hgb Conc31.7 g/nWCbiiir17.4-35.9[facility] HospitalComment on above:Order Comment: Prior to first [facility] Infusion and every 2 weeks if baseline CR is within normal limits. Performed By: #### BCR #### [facility] (DEFAULT) [address] [address]Xabszlxpq (Bld) [#/Vol]0.39 10*3/uLNormal0.22-0.87[facility] HospitalComment on above:Order Comment: Prior to first [facility] and every 2 weeks if baseline CR is within normal limits. Performed By: #### BCR #### [facility] (DEFAULT) [address] [address]Srudzejaw/100 WBC (Bld)4.4 %NormalMount St. Mary HospitalComment on above:Order Comment: Prior to first [facility] Infusion and every 2 weeks if baseline CR is within normal limits.Performed By: #### BCR #### [facility] (DEFAULT) [address] [address]Upxzqdygu RBC0.0 /100 WBCNormal<=0[address] [facility] HospitalComment on above:Order Comment: Prior to first [facility] and every 2 weeks if baseline CR is within normal limits.Performed By: #### BCR #### [facility] (DEFAULT) [address] [address]Kdagjzro mean volume (Bld) [Entitic vol]9.7 fLNormal8.5-12.[address] [facility] HospitalComment on above:Order Comment: Prior to first [facility] and every 2 weeks if baseline CR is within normal angel its.Performed By: #### BCR #### [facility] (DEFAULT) [address] [place] [address]Oudmttgrq (Bld) [#/Vol]383 10*3/bAZqsosv996-827GmseMount St. Mary HospitalComment on above:Order Comment: Prior to first [facility] and every 2 weeks if baseline CR is within normal limits. Performed By: #### BCR #### [facility] (DEFAULT) [address] [place] [address]ETU (Bld) [#/Vol]4.06 10*6/uLNormal3.91-5.04[facility] HospitalComment on above:Order Comment: Prior to first [facility] and every 2 weeks if baseline CR is within normal limits. Performed By: #### BCR #### [facility] (DEFAULT) [address] [place] [address] 68776HYB Qolfpafvjlkr15.5 %Tmrlwg34.8-14.9[facility]. Mary HospitalComment on above:Order Comment: Prior to first [facility] In[facility] and every 2 weeks if baseline CR is within normal limits.Performed By: #### BCR #### [facility] (DEFAULT) [address] [place] [address] 48101Fqyo + Bands Auto63.7 %NormalMount St. Mary HospitalComment on above:Order Comment: Prior to first [facility] Infusion and every 2 weeks if baseline CR is within normal limits.Performed By: #### BCR #### [facility] (DEFAULT) [address] [place] [address] 82532Cdgv + Bands,Absolute Auto5.66 K/uLNormal1.64-7.28Mount St. Mary HospitalComment on above:Order Comment: Prior to first [facility] Infusion and every 2 weeks if baseline CR is within normal limits. Performed By: #### BCR #### [facility] (DEFAULT) [address] [place] [address] 63432NUD (Bld) [#/Vol]8.88 10*3/uLNormal3.99-11.19[facility]. Mary HospitalComment on above:Order Comment: Prior to first [facility] Infusion and every 2 weeks if baseline CR is within normal limits. Performed By: #### BCR #### [facility] (DEFAULT) [address] [place] [address] 69612NLD/HRT MACULA OUon 83-87-9600LZL/HRT MACULA OURight Eye Quality was good. Findings include subretinal fluid. Interval change is better. Recommendation for management is to continue treatment. Left Eye Quality was good. Findings include subretinal fluid. Interval change is better. Recommendation for management is to continue treatment.NormalMount St. Mary HospitalBUN CREAon 83-05-6586Zgqkfrzuni [Mass/Vol]1.20 mg/dLNormal0.50-1.20[facility]. Mary HospitalComment on above: Order Comment: Prior to first [facility] Infusion and every 2 weeks if baseline CR is within normal limits.Performed By: #### BCR #### [facility] (DEFAULT) [address] [place] [address] 57834RTZ GFR, Gkcioddn07 mL/min/1.73sqMLow>=60Mount St. Mary HospitalComment on above:Order Comment: Prior to first [facility] Infusion and every 2 weeks if baseline CR is within normal limits. Performed By: #### BCR #### [facility] (DEFAULT) [address] [place] [address] 97527UJT GFR,Non Kvoqjftc88 mL/min/1.73sqMLow>=60Mount St. Mary HospitalComment on above:Order Comment: Prior to first [facility] Infusion and every 2 weeks if baseline CR is within normal limits. Performed By: #### BCR #### [facility] (DEFAULT) [address] [place] [address] 47417Gmhg nitrogen [Mass/Vol]21 mg/dLNormal7-Mount St. Mary HospitalComment on above:Order Comment: Prior to first [facility] Infusion and every 2 weeks if baseline CR is within normal limits. Performed By: #### BCR #### [facility] (DEFAULT) [address] [place] [address] 69896Ttet nitrogen/Creatinine [Mass ratio]18 mg/mgSelect Medical Specialty Hospital - Southeast OhioComment on above:Order Comment: Prior to first [facility] Infusion and every 2 weeks if baseline CR is within normal limits. Performed By: #### BCR #### [facility] (DEFAULT) [address] [address]XZX AND ELECTRONIC DIFFon 26-64-0117Lvtbybfwe (Bld) [#/Vol] 0.05 10*3/uLNormal0.00-0.15[facility] St[facility] Mary HospitalComment on above:Order Comment: Prior to first [facility] Infusion and then every 2 weeks.until results within normal limits. Collect weekly if baseline is abnormal.Performed By: #### [id number] #### [facility] (DEFAULT) [address] [address]Sfjmcwakl/100 WBC (Bld)0.5 %[facility] OhioComment on above:Order Comment: Prior to first [facility] Infusion and then every 2 weeks.until results within normal limits. Collect weekly if baseline is abnormal.Performed By: #### [id number] #### [facility] (DEFAULT) [address] [address]TWLM STATUSElectronic DifferentialSelect Medical Specialty Hospital - Southeast OhioComment on above:Order Comment: Prior to first [facility] Infusion and then every 2 weeks.until results within normal limits. Collect weekly if baseline is abnormal.Performed By: #### [id number] #### [facility] (DEFAULT) [address] [address]Ffxpojpanjv (Bld) [#/Vol]0.31 10*3/uLNormal0.00-0.42[facility] Mary HospitalComment on above:Order Comment: Prior to first [facility] Infusion and then every 2 weeks.until results within normal limits. Collect weekly if baseline is abnormal.Performed By: #### [id number] #### [facility] (DEFAULT) [address] [address]Ealppddmtcn/100 WBC (Bld)3.3 %[facility] OhioComment on above:Order Comment: Prior to first [facility] Infusion and then every 2 weeks.until results within normal limits. Collect weekly if baseline is abnormal.Performed By: #### [id number] #### [facility] (DEFAULT) [address] [address]Sqwwpyizko (Bld) [Volume fraction]33.5 %Low34.9-44.3[facility] St[facility] Mary HospitalComment on above:Order Comment: Prior to first [facility] Infusion and then every 2 weeks.until results within normal limits. Collect weekly if baseline is abnormal.Performed By: #### [id number] #### [facility] (DEFAULT) [address] [address]Oihxljwykf (Bld) [Mass/Vol]10.5 g/dLLow11.4-15.2[facility] Mary HospitalComment on above:Order Comment: Prior to first [facility] Infusion and then every 2 weeks.until results within normal limits. Collect weekly if baseline is abnormal.Performed By: #### [id number] #### [facility] (DEFAULT) [address] [address]Otbfgpss Grans %0.2 %[facility] OhioComment on above:Order Comment: Prior to first [facility] Infusion and then every 2 weeks.until results within normal limits. Collect weekly if baseline is abnormal.Performed By: #### [id number] #### [facility] (DEFAULT) [address] [address]Afbkhhmt Grans Absolute<0.04Normal<=0.09Mount St. Mary HospitalComment on above:Order Comment: Prior to first [facility] Infusion and then every 2 weeks.until results within normal limits. Collect weekly if baseline is abnormal.Performed By: #### [id number] #### [facility] (DEFAULT) [address] [address]Leczkawuwjm (Bld) [#/Vol]2.84 10*3/uLNormal1.16-3.51[facility]. Mary HospitalComment on above:Order Comment: Prior to first [facility] Infusion and then every 2 weeks.until results within normal limits. Collect weekly if baseline is abnormal.Performed By: #### [id number] #### [facility] (DEFAULT) [address] [address]Iyjczfuvbvb/100 WBC (Bld)30.6 %NormalMount St. Mary HospitalComment on above:Order Comment: Prior to first [facility] Infusion and then every 2 weeks.until results within normal limits. Collect weekly if baseline is abnormal.Performed By: #### [id number] #### [facility] (DEFAULT) [address] [address]HDF (RBC) [Entitic vol]85.[address]q01.6-97.7[facility] Mary HospitalComment on above:Order Comment: Prior to first [facility] Infusion and then every 2 weeks.until results within normal limits. Collect weekly if baseline is abnormal.Performed By: #### [id number] #### [facility] (DEFAULT) [address] [address]Kbyu Cell Hgb26.[address] qmCbfrme61.9-33.9[facility] Mary HospitalComment on above:Order Comment: Prior to first [facility] Infusion and then every 2 weeks.until results within normal limits. Collect weekly if baseline is abnormal.Performed By: #### [id number] #### [facility] (DEFAULT) [address] [address]Lyzm Cell Hgb Conc31.3 g/dLLow31.4-35.9[facility] Mary HospitalComment on above:Order Comment: Prior to first [facility] Infusion and then every 2 weeks.until results within normal limits. Collect weekly if baseline is abnormal.Performed By: #### [id number] #### [facility] (DEFAULT) [address] [address]Ueudgzcdd (Bld) [#/Vol]0.42 10*3/uLNormal0.22-0.87[facility] Mary HospitalComment on above:Order Comment: Prior to first [facility]ex Infusion and then every 2 weeks.until results within normal limits. Collect weekly if baseline is abnormal.Performed By: #### [id number] #### [facility] (DEFAULT) [address] [address]Mklqxrpvw/100 WBC (Bld)4.5 %NormalMount St. Mary HospitalComment on above:Order Comment: Prior to first [facility]ex Infusion and then every 2 weeks.until results within normal limits. Collect weekly if baseline is abnormal.Performed By: #### [id number] #### [facility] (DEFAULT) [address] [address]Fvagaufkf RBC0.0 /100 WBCNormal<=0[address] Mary HospitalComment on above:Order Comment: Prior to first [facility]ex Infusion and then every 2 weeks.until results within normal limits. Collect weekly if baseline is abnormal.Performed By: #### [id number] #### [facility] (DEFAULT) [address] [address]Utxaltub mean volume (Bld) [Entitic vol]9.3 fLNormal8.5-12.[address] [facility] HospitalComment on above:Order Comment: Prior to first [facility] Infusion and then every 2 weeks.until results within normal li mits. Collect weekly if baseline is abnormal.Performed By: #### [id number] #### [facility] (DEFAULT) [address] [address]Prpixphdx (Bld) [#/Vol]398 10*3/vLTalu751-719TvzpMount St. Mary HospitalComment on above:Order Comment: Prior to first [facility]ex Infusion and then every 2 weeks.until results within normal limits. Collect weekly if baseline is abnormal.Performed By: #### [id number] #### [facility] (DEFAULT) [address] [address]MRN (Bld) [#/Vol]3.91 10*6/uLNormal3.91-5.04[facility] Mary HospitalComment on above:Order Comment: Prior to first [facility]ex Infusion and then every 2 weeks.until results within normal limits. Collect weekly if baseline is abnormal.Performed By: #### [id number] #### [facility] (DEFAULT) [address] [address]ARM Ncbtohybkson12.5 %Cubudp31.8-14.9[facility] Mary HospitalComment on above:Order Comment: Prior to first [facility] Infusion and then every 2 weeks.until results within normal limits. Collect weekly if baseline is abnormal.Performed By: #### [id number] #### [facility] (DEFAULT) [address] [address]Pshv + Bands Auto60.9 %NormalMount St. Mary HospitalComment on above:Order Comment: Prior to first [facility] Infusion and then every 2 weeks.until results within normal limits. Collect weekly if baseline is abnormal.Performed By: #### [id number] #### [facility] (DEFAULT) [address] [address]Ngqb + Bands,Absolute Auto5.63 K/uLNormal1.64-7.28[facility] Mary HospitalComment on above:Order Comment: Prior to first [facility] Infusion and then every 2 weeks.until results within normal limits. Collect weekly if baseline is abnormal.Performed By: #### [id number] #### [facility] (DEFAULT) [address] [address]SUC (Bld) [#/Vol]9.27 10*3/uLNormal3.99-11.19[facility] Mary HospitalComment on above:Order Comment: Prior to first [facility] Infusion and then every 2 weeks.until results within normal limits. Collect weekly if baseline is abnormal.Performed By: #### [id number] #### [facility] (DEFAULT) [address] [address]E HYDROXYBUTYRATEon 01-14-2021 HYDROXYBUTYRATE0.08 MMOL/L Normal0.02-0.27[facility] CenterComment on above:Performed By: #### CMPF, BHB, ACBC #### Testing performed at [address] [address]DUQmt 34-24-1157SBCNCJZV BAS0.0 10*3/uLNormal0.0-0.2AMorristown Medical CenterComment on above:Performed By: #### CMPF, BHB, ACBC #### Testing performed at [address] [address]EKMDQTPC EOS0.20 10*3/uLNormal0.0-0.7AMorristown Medical Center Comment on above:Performed By: #### CMPF, BHB, ACBC #### Testing performed at [address] [address]UAPFZJPD NEUTROPHIL COUNT4.9 10*3/uLNormal1.4-6.5AMorristown Medical CenterComment on above:Performed By: #### JONNYF BHB, ACBC #### Testing performed at [address] [address]Ackujlmfi/100 WBC (Bld)0.4 %Normal0.0-2.0[facility] Comment on above:Performed By: #### CMPF, BHB, ACBC #### Testing performed at [address] [address]ITALKIFQG DIFFNormalAMorristown Medical CenterComment on above: Performed By: #### CMPF, BHB, ACBC #### Testing performed at [address] [address]Ylwtxfprsaq/100 WBC (Bld)2.3 %Normal0.0-11.0[facility] Medical CenterComment on above:Performed By: #### CMPF, BHB, ACBC #### Testing performed at [address] [address]Oizvuklxscq (Bld) [#/Vol]2.10 10*3/uLNormal1.2-3.4AMorristown Medical CenterComment on above:Performed By: #### CMPF, BHB, ACBC #### Testing performed at [address] [address]Ysjfskrxmmd/100 WBC (Bld)27.2 %Qkrykg50.0-55.0[facility] Medical CenterComment on above:Performed By: #### SANGEETA HUGGINS ACBC #### Testing performed at [address] [address]Vpewsbadz (Bld) [#/Vol]0.6 10*3/uLNormal0.0-0.7AMorristown Medical CenterComment on above:Performed By: #### SANGEETA HUGGINS ACBC #### Testing performed at [address] [address]Zhdgbrrkz/100 WBC (Bld)7.5 %Normal0.0-10.0[facility] Medical CenterComment on above:Performed By: #### SANGEETA HUGGINS ACBC #### Testing performed at [address] [address]Joirimyijsi/100 WBC (Bld)62.6 %Zizjot47.0-75.0[facility] Medical CenterComment on above:Performed By: #### SANGEETA HUGGINS ACBC #### Testing performed at [address] [address]Vqaelvdmkwl distribution width (RBC) [Ratio]15.6 %High11.5-14.5 [facility] on above:Performed By: #### SANGEETA HUGGINS ACBC #### Testing performed at [address] [address]Vxwfjulrtm (Bld) [Volume fraction]32.7 %Low36.0-48.0[facility] Medical CenterComment on above:Performed By: #### SANGEETA HUGGINS, ACBC #### Testing performed at [address] [address]Wwsqnuxktg (Bld) [Mass/Vol]10.8 g/dLLow12.0-16.0[facility] Medical CenterComhelen devos children's hospital on above:Performed By: #### BHAVAN BHB, ACBC #### Testing performed at [address] [address]LGZ (RBC) [Entitic mass]27.3 qmVjgdur51.0-35.0[facility]eman HospitalComment on above:Performed By: #### SANGEETA HUGGINS ACBC #### Testing performed at [address] [address]XMCM (RBC) [Mass/Vol]33.1 g/wLAhvtuo37.0-37.0[facility] HospitalComment on above:Performed By: #### SANGEETA HUGGINS ACBC #### Testing performed at [address] [address]AAZ (RBC) [Entitic vol]82.5 cPHdsfjp94.0-100.0[facility] HospitalComment on above:Performed By: #### SANGEETA HUGGINS ACBC #### Testing performed at [address] [address]Isjanako mean volume (Bld) [Entitic vol]7.1 fLLow7.4-11.0[facility] HospitalComment on above:Performed By: #### SANGEETA HUGGINS ACBC #### Testing performed at [address] [address]Etfykoqzt (Bld) [#/Vol]359 10*3/eWJxcvxe776.0-400.0[facility] HospitalComment on above:Performed By: #### SANGEETA HUGGINS ACBC #### Testing performed at [address] [address]EQM (Bld) [#/Vol]3.96 10*6/uLLow4.0-5.4AInspira Medical Center [facility] on above:Performed By: #### SANGEETA HUGGINS ACBC #### Testing performed at [address], [place] [address]INI (Bld) [#/Vol]7.8 10*3/uLNormal3.6-11.0[facility] Medical CenterComment on above:Performed By: #### SANGEETA HUGGINS ACBC #### Testing performed at [address] [address]TWD FASTINGon 01-14-2021:G RATIO1.0 RATIOLow1.3-2.2[facility] HospitalComment on above:Performed By: #### MARQUITA HUGGINSB, ACBC #### Testing performed at [address], [place] [address]BUKMTZL6.9 G/dlNormal3.5-5.0[facility] Medical CenterComment on above:Performed By: #### BHAVNA BHB, ACBC #### Testing performed at [address] [place] [address]OYS [Catalytic activity/Vol]117 U/CBgerln04-337ZmpheMeadowlands Hospital Medical CenterComment on above:Performed By: #### MARQUITA HUGGINSB, ACBC #### Testing performed at [address] [place] [address]JWZ [Catalytic activity/Vol]24 U/YCrfeot42-92DahwtMeadowlands Hospital Medical CenterComment on above:Performed By: #### MARQUITA HUGGINSB, ACBC #### Testing performed at [address] [place] [address]UPZ [Catalytic activity/Vol]22 U/DCzkucc75-72TevbyMeadowlands Hospital Medical CenterComment on above:Performed By: #### SANGEETA HUGGINS, ACBC #### Testing performed at [address] [place] [address]Swysjrhyz [Mass/Vol]0.4 mg/dLNormal0.2-1.2AMorristown Medical CenterComment on above:Performed By: #### BHAVNA BHB, ACBC #### Testing performed at [address] [place] [address]Aqxbnhh [Mass/Vol]9.0 mg/dLNormal8.4-10.2AMorristown Medical Center Comment on above:Performed By: #### BHAVNA BHB, ACBC #### Testing performed at [address] [place] [address]Uxsivjpk [Moles/Vol]101 mmol/HKyjfaz10-144NajxhMeadowlands Hospital Medical CenterComhelen devos children's hospital on above:Performed By: #### CMPF BHB, ACBC #### Testing performed at [address] [place] [address]UQ5 [Moles/Vol]23 mmol/FUyjblt87-09MauekMeadowlands Hospital Medical Center Comment on above:Performed By: #### SANGEETA HUGGINS ACBC #### Testing performed at [address] [address]Rnaaezkbqd [Mass/Vol]1.40 mg/dLHigh0.52-1.04[facility] on above:Performed By: #### SANGEETA HUGGINS ACBC #### Testing performed at [address] [address]NMR. GFR, Ydezaqvs09 ml/min/1.73sq.mNGuadalupe County Hospital on above:Performed By: #### JONNYFSANGEETA ACBC #### Testing performed at [address] [address]QHE. GFR,Non Vndkmccb84 ml/min/1.73sq.[facility] on above:Performed By: #### SANGEETA HUGGINS ACBC #### Testing performed at [address] [address]HMU InformationAverage GFR for 50-59 years old = 93.NormalKettering Health on above:Result Comment: Chronic Kidney disease, GFR = <60. Kidney failure, GFR = <15. The GFR estimate is not adjusted for extreme body surface area or acute process, nor has it been validated for women or ethnic groups other than and .Performed By: #### SANGEETA HUGGINS ACBC #### Testing performed at [address] [address]Jkrwnyg [Mass/Vol]457 mg/dLCritically hmab98-808MiywzKettering Health on above:Result Comment: NORMAL <100 mg/dL PREDIABETES 101-126 mg/dL DIABETES 126 mg/dL or higher Result called to read back by: Malvin WOODY 01/13/2021 @ 22:34 by CHARLESPerformed By: #### SANGEETA HUGGINS ACBC #### Testing performed at [address] [address]Tzptpypco [Moles/Vol]4.6 mmol/LNormal3.5-5.1AMorristown Medical CenterComhelen devos children's hospital on above:Performed By: #### SANGEETA HUGGINS ACBC #### Testing performed at [address] [address]Ckpekaf [Mass/Vol]7.9 g/dLNormal6.3-8.2AMorristown Medical Center Comment on above:Performed By: #### SANGEETA HUGGINS ACBC #### Testing performed at [address] [address]Xexfpf [Moles/Vol]134 mmol/ONef325-016FnzbpMeadowlands Hospital Medical Center Comment on above:Performed By: #### SANGEETA HUGGINS ACBC #### Testing performed at [address] [address]Cmub nitrogen [Mass/Vol]36 mg/dLHigh7-20[facility] Comment on above:Performed By: #### SANGEETA HUGGINS ACBC #### Testing performed at [address] [address]EUKL GLUCOSEon 07-35-3404Wgjmkav [Mass/Vol]391 mg/mQMkds23-363 [facility] Medical CenterUcqlruupMYUKZYUG750352SurqwsGacpk Ontario HospitalGlucose [Mass/Vol]217 mg/nSKcge90-957UmrmiMeadowlands Hospital Medical CenterVzbawmueUBITXFSI231251OsfgnsGwfiv Ontario HospitalURINE MACROSCOPICon 50-03-5589Kthpbpecj Ql (U)NegativeNormal NEGATIVEMeadowlands Hospital Medical CenterComment on above:Performed By: #### KRIS KOHLER #### Testing performed at [address] [address]Xofajgw (U)CLEARNormalCLEARMeadowlands Hospital Medical CenterComment on above:Performed By: #### KRIS KOHLER #### Testing performed at [address] [address]Ixpde (U)YELLOWNormalYELLOWMeadowlands Hospital Medical CenterComment on above:Performed By: #### KRIS KOHLER #### Testing performed at [address] [address]Gutrygb Ql (U)500 mg/dlAbnormalNEGATIVEMeadowlands Hospital Medical Center Comment on above:Performed By: #### KRIS KOHLER #### Testing performed at [address] [place] [address]lA (U)6.0 [pH]Normal5.0-7.0[facility] Medical CenterComment on above:Performed By: #### BRENDON KOHLERIC #### Testing performed at [address] [address]JNQXP HEMOGLOBINTRACE-INTACTAbnormmsNEGGreystone Park Psychiatric HospitalComhelen devos children's hospital on above:Performed By: #### UMDAVE UMIC #### Testing performed at [address] [address]NKBOR KETONENegativeNormalNEGGreystone Park Psychiatric HospitalComment on above:Performed By: #### EDITA UMIC #### Testing performed at [address] [address]ZWFET LEUKOTESTNegativeAmerican Healthcare Systems Comment on above:Performed By: #### BRENDON KOHLERIC #### Testing performed at [address] [address]BXWIS NITRATESNegativeNoCarlsbad Medical Center Comment on above:Performed By: #### BRENDON KOHLERIC #### Testing performed at [address] [address]KHNLY SPEC GRAVITY1.703Pfgkcd1.010-1.025[facility] Comment on above:Performed By: #### BRENDON KOHLERIC #### Testing performed at [address] [address]NCCPA TOTAL PROTEINNegativeNoCarlsbad Medical Center Comment on above:Performed By: #### BRENDON KOHLERIC #### Testing performed at [address] [address]Zbzezvumbpaa Qn (U)0.2 {Rikki'U}/dLNormal0.2-1.0[facility] Medical CenterComment on above:Performed By: #### EDITA UMIC #### Testing performed at [address] [address]MUTIY MICROSCOPICon 44-75-1565Nlcrmgpz LM.HPF (Urine sed) [#/Area]NegativeNormalNEGGreystone Park Psychiatric HospitalComment on above:Performed By: #### UMAC, UMIC #### Testing performed at [address] [address]JFHWPHUXZArnjshCXLYCgyyiBacharach Institute for RehabilitationComment on above: Performed By: #### UMAC, UMIC #### Testing performed at [address] [address]JXFMCLMTSCBKojvygHVFYXspdr Ontario HospitalComment on above: Performed By: #### UMAC, UMIC #### Testing performed at [address] [address]Smnqonzazh cells LM Ql (Urine sed)1 TO 5NormalAviLos Angeles County High Desert Hospital HospitalComment on above:Performed By: #### UMAC, UMIC #### Testing performed at [place] [address]Mucus Ql (Urine sed)NegativeNormalNEGGreystone Park Psychiatric HospitalComhelen devos children's hospital on above:Performed By: #### UMAC, UMIC #### Testing performed at [place] [address]URINE COMMENTCULTURE CRITERIA NOT MET, NO CULTURE PERFORMED. [facility] CenterComment on above:Performed By: #### UMAC, UMIC #### Testing performed at [address] [address]IJBAX RBC'SNegativeNormalNEGSierra Vista Hospital HospitalComhelen devos children's hospital on above:Performed By: #### UMAC, UMIC #### Testing performed at [address] [address]TTXVY WBC'SNegativeNormalNEGSierra Vista Hospital HospitalComment on above:Performed By: #### UMAC, UMIC #### Testing performed at [address] [address]MCS CREAon 18-28-4448Ozmcybexzm [Mass/Vol]1.22 mg/dLHigh 0.50-1.20[facility] HospitalComment on above:Order Comment: Prior to first [facility] Infusion and every 2 weeks if baseline CR is within normal limits.Performed By: #### BCR #### [facility] (DEFAULT) [address] [place], [place] [address]YAE GFR, Yijadmew26 mL/min/1.73sqMLow>=60[facility] Mary HospitalComment on above:Order Comment: Prior to first [facility] Infusion and every 2 weeks if baseline CR is within normal limits. Performed By: #### BCR #### [facility] (DEFAULT) [address] [address]XEO GFR,Non Dppwoppo96 mL/min/1.73sqMLow>=60[facility] HospitalComment on above:Order Comment: Prior to first [facility]ex Infusion and every 2 weeks if baseline CR is within normal limits. Performed By: #### BCR #### [facility] (DEFAULT) [address] [address]Vlwx nitrogen [Mass/Vol]20 mg/dLNormal7-22[facility] HospitalComment on above:Order Comment: Prior to first [facility]ex Infusion and every 2 weeks if baseline CR is within normal limits. Performed By: #### BCR #### [facility] (DEFAULT) [address] [address]Fjii nitrogen/Creatinine [Mass ratio]16 mg/mgNormalOMercy Health St. Elizabeth Youngstown HospitalComment on above:Order Comment: Prior to first [facility]ex Infusion and every 2 weeks if baseline CR is within normal limits. Performed By: #### BCR #### [facility] (DEFAULT) [address] [address]PMG AND ELECTRONIC DIFFon [id number] (Bld) [#/Vol] 10*3/uLNormal0.00-0.15[facility] Mary HospitalComment on above:Order Comment: Prior to first [facility]fusion and then every 2 weeks.until results within normal limits. Collect weekly if baseline is abnormal.Performed By: #### [id number] #### [facility] (DEFAULT) [address] [address]Jprojawyp/100 WBC (Bld)0.4 %NormalMount St. Mary HospitalComment on above:Order Comment: Prior to first [facility] Infusion and then every 2 weeks.until results within normal limits. Collect weekly if baseline is abnormal.Performed By: #### [id number] #### [facility] (DEFAULT) [address] [address]JQWK STATUSElectronic DifferentialNormalOhio [facility] Hospital - CincinnatiComment on above:Order Comment: Prior to first [facility] Infusion and then every 2 weeks.until results within normal limits. Collect weekly if baseline is abnormal.Performed By: #### [id number] #### [facility] (DEFAULT) [address] [address]Xxzjwzvrytf (Bld) [#/Vol]0.16 10*3/uLNormal0.00-0.42[facility] Mary HospitalComment on above:Order Comment: Prior to first [facility] Infusion and then every 2 weeks.until results within normal limits. Collect weekly if baseline is abnormal.Performed By: #### [id number] #### [facility] (DEFAULT) [address] [address]Clsfjyndegk/100 WBC (Bld)2.1 %NormalMount St. Mary HospitalComment on above:Order Comment: Prior to first [facility] Infusion and then every 2 weeks.until results within normal limits. Collect weekly if baseline is abnormal.Performed By: #### [id number] #### [facility] (DEFAULT) [address] [address]Fcmanjjiol (Bld) [Volume fraction]32.0 %Low34.9-44.3[facility] Mary HospitalComment on above:Order Comment: Prior to first [facility] Infusion and then every 2 weeks.until results within normal limits. Collect weekly if baseline is abnormal.Performed By: #### [id number] #### [facility] (DEFAULT) [address] [address]Tawyokrkqj (Bld) [Mass/Vol]10.1 g/dLLow11.4-15.2[facility] Mary HospitalComment on above:Order Comment: Prior to first [facility] Infusion and then every 2 weeks.until results within normal limits. Collect weekly if baseline is abnormal.Performed By: #### [id number] #### [facility] (DEFAULT) [address] [address]Vuhzxgot Grans %0.3 %[facility] OhioComment on above:Order Comment: Prior to first [facility] Infusion and then every 2 weeks.until results within normal limits. Collect weekly if baseline is abnormal.Performed By: #### [id number] #### [facility] (DEFAULT) [address] [address]Poivvqhc Grans Absolute<0.04Normal<=0.09[facility] Mary HospitalComment on above:Order Comment: Prior to first [facility]ex Infusion and then every 2 weeks.until results within normal limits. Collect weekly if baseline is abnormal.Performed By: #### [id number] #### [facility] (DEFAULT) [address] [address]Cosqkjilaab (Bld) [#/Vol]2.23 10*3/uLNormal1.16-3.51[facility] Mary HospitalComment on above:Order Comment: Prior to first [facility] Infusion and then every 2 weeks.until results within normal limits. Collect weekly if baseline is abnormal.Performed By: #### [id number] #### [facility] (DEFAULT) [address] [place] [address]Ksmnrcdrugj/100 WBC (Bld)28.8 %[facility] OhioComment on above:Order Comment: Prior to first [facility] Infusion and then every 2 weeks.until results within normal limits. Collect weekly if baseline is abnormal.Performed By: #### [id number] #### [facility] (DEFAULT) [address] [place] [address]KDI (RBC) [Entitic vol]86.[address]iv11.6-97.7[facility] Mary HospitalComment on above:Order Comment: Prior to first [facility] Infusion and then every 2 weeks.until results within normal limits. Collect weekly if baseline is abnormal.Performed By: #### [id number] #### [facility] (DEFAULT) [address] [address]Zjph Cell Hgb27.[address] wa[address]nlqtq77.9-33.9[facility] HospitalComment on above:Order Comment: Prior to first [facility]ex Infusion and then every 2 weeks.until results within normal limits. Collect weekly if baseline is abnormal.Performed By: #### [id number] #### [facility] (DEFAULT) [address] [address]Jgfi Cell Hgb Conc31.6 g/oUYdonyt65.4-35.9[facility] Mary HospitalComment on above:Order Comment: Prior to first [facility]ex Infusion and then every 2 weeks.until results within normal limits. Collect weekly if baseline is abnormal.Performed By: #### [id number] #### [facility] (DEFAULT) [address] [address]Jgvxawpuu (Bld) [#/Vol]0.38 10*3/uLNormal0.22-0.87[facility] Mary HospitalComment on above:Order Comment: Prior to first [facility]ex Infusion and then every 2 weeks.until results within normal limits. Collect weekly if baseline is abnormal.Performed By: #### [id number] #### [facility] (DEFAULT) [address] [address]Rtfltsuqh/100 WBC (Bld)4.9 %NormalMount St. Mary HospitalComment on above:Order Comment: Prior to first [facility]ex Infusion and then every 2 weeks.until results within normal limits. Collect weekly if baseline is abnormal.Performed By: #### [id number] #### [facility] (DEFAULT) [address] [address]Jpkfzervv RBC0.0 /100 WBCNormal<=0[address] Mary HospitalComment on above:Order Comment: Prior to first [facility]ex Infusion and then every 2 weeks.until results within normal limits. Collect weekly if baseline is abnormal.Performed By: #### [id number] #### [facility] (DEFAULT) [address] [address]Tkudchmn mean volume (Bld) [Entitic vol]9.4 fLNormal8.5-12.[address] [facility] HospitalComment on above:Order Comment: Prior to first [facility]ex Infusion and then every 2 weeks.until results within normal li mits. Collect weekly if baseline is abnormal.Performed By: #### [id number] #### [facility] (DEFAULT) [address] [address]Sdnmjngwl (Bld) [#/Vol]352 10*3/rNHqqrqm638-466VndaMount St. Mary HospitalComment on above:Order Comment: Prior to first Gam[employer]ex Infusion and then every 2 weeks.until results within normal limits. Collect weekly if baseline is abnormal.Performed By: #### [id number] #### [facility] (DEFAULT) [address] [address]TLS (Bld) [#/Vol]3.72 10*6/uLLow3.91-5.04[facility] Mary HospitalComment on above:Order Comment: Prior to first Gam[employer]ex Infusion and then every 2 weeks.until results within normal limits. Collect weekly if baseline is abnormal.Performed By: #### [id number] #### [facility] (DEFAULT) [address] [address]TVV Ivwrlylcriut25.3 %High10.8-14.9[facility] Mary HospitalComment on above:Order Comment: Prior to first [employer]unex Infusion and then every 2 weeks.until results within normal limits. Collect weekly if baseline is abnormal.Performed By: #### [id number] #### [facility] (DEFAULT) [address] [address]Ajvq + Bands Auto63.5 %NormalMount St. Mary HospitalComment on above:Order Comment: Prior to first [employer]unex Infusion and then every 2 weeks.until results within normal limits. Collect weekly if baseline is abnormal.Performed By: #### [id number] #### [facility] (DEFAULT) [address] [address]Qvnl + Bands,Absolute Auto4.93 K/uLNormal1.64-7.28[facility] Mary HospitalComment on above:Order Comment: Prior to first Gamunex Infusion and then every 2 weeks.until results within normal limits. Collect weekly if baseline is abnormal.Performed By: #### [id number] #### [facility] (DEFAULT) [address] [address]VAG (Bld) [#/Vol]7.75 10*3/uLNormal3.99-11.19[facility] Mary HospitalComment on above:Order Comment: Prior to first [facility]ex Infusion and then every 2 weeks.until results within normal limits. Collect weekly if baseline is abnormal.Performed By: #### [id number] #### [facility] (DEFAULT) [address] [address]YYM CREAon [phone] [Mass/Vol]1.10 mg/dLNormal 0.50-1.20[facility] HospitalComment on above:Order Comment: Prior to first Gamunex Infusion and every 2 weeks if baseline CR is within normal limits.Performed By: #### BCR #### [facility] (DEFAULT) [address] [address]HTJ GFR, >=60Normal>=60[facility] Mary HospitalComment on above:Order Comment: Prior to first Gamunex Infusion and every 2 weeks if baseline CR is within normal limits.Performed By: #### BCR #### [facility] (DEFAULT) [address] [address]JVU GFR,Non Bjcbragt07 mL/min/1.73sqMLow>=60[facility] Mary HospitalComment on above:Order Comment: Prior to first [facility]ex Infusion and every 2 weeks if baseline CR is within normal limits. Performed By: #### BCR #### [facility] (DEFAULT) [address] [place] [address]Fqzq nitrogen [Mass/Vol]26 mg/dLHigh7-22[facility] Mary HospitalComment on above:Order Comment: Prior to first Gamunex Infusion and every 2 weeks if baseline CR is within normal limits.Performed By: #### BCR #### [facility] (DEFAULT) [address] [address]Iivb nitrogen/Creatinine [Mass ratio]24 mg/mgNoPremier Health Upper Valley Medical CenterComment on above:Order Comment: Prior to first Gamunex Infusion and every 2 weeks if baseline CR is within normal limits. Performed By: #### BCR #### [facility] (DEFAULT) [address] [address]SFV AND ELECTRONIC DIFFon [phone] (Bld) [#/Vol] 10*3/uLNormal0.00-0.15[facility] HospitalComment on above:Order Comment: Prior to first Gamunex Infusion and every 2 weeks if baseline CR is within normal limits.Performed By: #### BCR #### [facility] (DEFAULT) [address] [address]Ejbkhnldv/100 WBC (Bld)0.3 %NormalMount St. Mary HospitalComment on above:Order Comment: Prior to first Gamunex Infusion and every 2 weeks if baseline CR is within normal limits.Performed By: #### BCR #### [facility] (DEFAULT) [address] [address]WGRR STATUSElectronic DifferentialNoPremier Health Upper Valley Medical CenterComment on above:Order Comment: Prior to first Gamunex Infusion and every 2 weeks if baseline CR is within normal limits.Performed By: #### BCR #### [facility] (DEFAULT) [address] [address]Msguoyxotqx (Bld) [#/Vol]0.20 10*3/uLNormal0.00-0.42[facility] HospitalComment on above:Order Comment: Prior to first Gamunex Infusion and every 2 weeks if baseline CR is within normal limits. Performed By: #### BCR #### [facility] (DEFAULT) [address] [address]Wdbfazfzlpm/100 WBC (Bld)2.0 %[facility] OhioComment on above:Order Comment: Prior to first Gamunex Infusion and every 2 weeks if baseline CR is within normal limits.Performed By: #### BCR #### [facility] (DEFAULT) [address] [address]Shckdyvhti (Bld) [Volume fraction]31.0 %Low34.9-44.3[facility] Mary HospitalComment on above:Order Comment: Prior to first Gamunex Infusion and every 2 weeks if baseline CR is within normal limits. Performed By: #### BCR #### [facility] (DEFAULT) [address] [address]Yiejxjxgbm (Bld) [Mass/Vol]10.0 g/dLLow11.4-15.2[facility] HospitalComment on above:Order Comment: Prior to first Gamunex Infusion and every 2 weeks if baseline CR is within normal limits. Performed By: #### BCR #### [facility] (DEFAULT) [address] [address]Bqrzikrr Grans %0.2 %[facility] OhioComment on above:Order Comment: Prior to first Gamunex Infusion and every 2 weeks if baseline CR is within normal limits.Performed By: #### BCR #### [facility] (DEFAULT) [address] [address]Bldlcuuh Grans Absolute<0.04Normal<=0.09[facility] HospitalComment on above:Order Comment: Prior to first Gamunex Infusion and every 2 weeks if baseline CR is within normal limits.Performed By: #### BCR #### [facility] (DEFAULT) [address] [address]Figoccygwxt (Bld) [#/Vol]2.96 10*3/uLNormal1.16-3.51[facility] HospitalComment on above:Order Comment: Prior to first Gamunex Infusion and every 2 weeks if baseline CR is within normal limits. Performed By: #### BCR #### [facility] (DEFAULT) [address] [address]Jznztjzrrri/100 WBC (Bld)29.9 %NormalMount St. Mary HospitalComment on above:Order Comment: Prior to first Gamunex Infusion and every 2 weeks if baseline CR is within normal limits.Performed By: #### BCR #### [facility] (DEFAULT) [address] [address]HRL (RBC) [Entitic vol]84.[address]bpsmp55.6-97.7[facility] HospitalComment on above:Order Comment: Prior to first Gamunex Infusion and every 2 weeks if baseline CR is within normal limits. Performed By: #### BCR #### [facility] (DEFAULT) [address] [address]Gdwk Cell Hgb27.4 trIouxin45.9-33.9[facility] HospitalComment on above:Order Comment: Prior to first Gamunex Infusion and every 2 weeks if baseline CR is within normal limits.Performed By: #### BCR #### [facility] (DEFAULT) [address] [address]Jayj Cell Hgb Conc32.3 g/yPIwxsxd68.4-35.9[facility] HospitalComment on above:Order Comment: Prior to first Gamunex Infusion and every 2 weeks if baseline CR is within normal limits. Performed By: #### BCR #### [facility] (DEFAULT) [address] [address]Bqvpelsis (Bld) [#/Vol]0.50 10*3/uLNormal0.22-0.87[facility] HospitalComment on above:Order Comment: Prior to first Gamunex Infusion and every 2 weeks if baseline CR is within normal limits. Performed By: #### BCR #### [facility] (DEFAULT) [address] [place] [address]Vavyemioe/100 WBC (Bld)5.1 %NormalMount St. Mary HospitalComment on above:Order Comment: Prior to first Gamunex Infusion and every 2 weeks if baseline CR is within normal limits.Performed By: #### BCR #### [facility] (DEFAULT) [address] [place] [address]Gkpccoaem RBC0.0 /[address] WBCNormal<=0[address] [facility] HospitalComment on above:Order Comment: Prior to first Gamunex Infusion and every 2 weeks if baseline CR is within normal limits.Performed By: #### BCR #### [facility] (DEFAULT) [address] [place] [address]Xhovckzu mean volume (Bld) [Entitic vol]9.2 fLNormal8.5-12.[address] [facility] HospitalComment on above:Order Comment: Prior to first Gamunex Infusion and every 2 weeks if baseline CR is within normal angel its.Performed By: #### BCR #### [facility] (DEFAULT) [address] [place] [address]Wzmkamctn (Bld) [#/Vol]372 10*3/oZSjccza131-895TtpkMount St. Mary HospitalComment on above:Order Comment: Prior to first Gamunex Infusion and every 2 weeks if baseline CR is within normal limits. Performed By: #### BCR #### [facility] (DEFAULT) [address] [place] [address]NBM (Bld) [#/Vol]3.65 10*6/uLLow3.91-5.04[facility] HospitalComment on above:Order Comment: Prior to first Gamunex Infusion and every 2 weeks if baseline CR is within normal limits.Performed By: #### BCR #### [facility] (DEFAULT) [address] [place] [address]LFY Pitadrqvvcat08.7 %Kaifgk05.8-14.9[facility] HospitalComment on above:Order Comment: Prior to first Gamunex Infusion and every 2 weeks if baseline CR is within normal limits.Performed By: #### BCR #### [facility] (DEFAULT) [address] [place] [address]Ucsl + Bands Auto62.5 %NormalMount St. Mary HospitalComment on above:Order Comment: Prior to first Gamunex Infusion and every 2 weeks if baseline CR is within normal limits.Performed By: #### BCR #### [facility] (DEFAULT) [address] [place] [address]Jrxv + Bands,Absolute Auto6.18 K/uLNormal1.64-7.28[facility] HospitalComment on above:Order Comment: Prior to first Gamunex Infusion and every 2 weeks if baseline CR is within normal limits. Performed By: #### BCR #### [facility] (DEFAULT) [address] [place] [address]SAS (Bld) [#/Vol]9.89 10*3/uLNormal3.99-11.19[facility] HospitalComment on above:Order Comment: Prior to first Gamunex Infusion and every 2 weeks if baseline CR is within normal limits. Performed By: #### BCR #### [facility] (DEFAULT) [address] [place] [address]UZX/HRT MACULA OUon [id number]/HRT MACULA OURight Eye Quality was good. Findings include subretinal fluid. Interval change is better. Recommendation for management is to continue treatment. Left Eye Quality was good. Findings include subretinal fluid. Interval change is better. Recommendation for management is to continue treatment.[facility] OhioApply dressingon [phone] dressing OhioHealthApply dressingOrdered By: Virginia Aguirre on [phone] CREA on [phone] [Mass/Vol]0.99 mg/dLNormal0.50-1.20[facility] HospitalComment on above:Order Comment: Prior to first Gamunex Infusion and every 2 weeks if baseline CR is within normal limits.Performed By: #### BCR #### [facility] (DEFAULT) [address] [address]NSO GFR, >=60Normal>=60[facility] Mary HospitalComment on above:Order Comment: Prior to first Gamunex Infusion and every 2 weeks if baseline CR is within normal limits.Performed By: #### BCR #### [facility] (DEFAULT) [address] [place] [address]EFW GFR,Non Zxxltian30 mL/min/1.73sqMLow>=60[facility] HospitalComment on above:Order Comment: Prior to first Gamunex Infusion and every 2 weeks if baseline CR is within normal limits. Performed By: #### BCR #### [facility] (DEFAULT) [address] [address]Wvwn nitrogen [Mass/Vol]25 mg/dLHigh7-22[facility] HospitalComment on above:Order Comment: Prior to first Gamunex Infusion and every 2 weeks if baseline CR is within normal limits.Performed By: #### BCR #### [facility] (DEFAULT) [address] [address]Ftnk nitrogen/Creatinine [Mass ratio]25 mg/mgNormalOwvo [facility] CincinnatiComment on above:Order Comment: Prior to first Gamunex Infusion and every 2 weeks if baseline CR is within normal limits. Performed By: #### BCR #### [facility] (DEFAULT) [address] [address]WEX AND ELECTRONIC DIFFon [phone] (Bld) [#/Vol] 0.04 10*3/uLNormal0.00-0.15[facility] HospitalComment on above:Order Comment: Prior to first Gamunex Infusion and every 2 weeks if baseline CR is within normal limits.Performed By: #### BCR #### [facility] (DEFAULT) [address] [address]Lrpyxcmvw/100 WBC (Bld)0.4 %[facility] OhioComment on above:Order Comment: Prior to first Gamunex Infusion and every 2 weeks if baseline CR is within normal limits.Performed By: #### BCR #### [facility] (DEFAULT) [address] [address]TWOG STATUSElectronic DifferentialNormalOhio [facility] CincinnatiComment on above:Order Comment: Prior to first Gamunex Infusion and every 2 weeks if baseline CR is within normal limits.Performed By: #### BCR #### [facility] (DEFAULT) [address] [address]Tmjfrobtwny (Bld) [#/Vol]0.13 10*3/uLNormal0.00-0.42[facility] HospitalComment on above:Order Comment: Prior to first Gamunex Infusion and every 2 weeks if baseline CR is within normal limits. Performed By: #### BCR #### [facility] (DEFAULT) [address] [address]Dppoxxwyzfq/100 WBC (Bld)1.4 %[facility] OhioComment on above:Order Comment: Prior to first Gamunex Infusion and every 2 weeks if baseline CR is within normal limits.Performed By: #### BCR #### [facility] (DEFAULT) [address] [address]Gmlkhrztep (Bld) [Volume fraction]33.6 %Low34.9-44.3[facility] HospitalComment on above:Order Comment: Prior to first Gamunex Infusion and every 2 weeks if baseline CR is within normal limits. Performed By: #### BCR #### [facility] (DEFAULT) [address] [address]Dglrmisjft (Bld) [Mass/Vol]10.6 g/dLLow11.4-15.2[facility] HospitalComment on above:Order Comment: Prior to first Gamunex Infusion and every 2 weeks if baseline CR is within normal limits. Performed By: #### BCR #### [facility] (DEFAULT) [address] [address]Jqyumonk Grans %0.2 %[facility] OhioComment on above:Order Comment: Prior to first Gamunex Infusion and every 2 weeks if baseline CR is within normal limits.Performed By: #### BCR #### [facility] (DEFAULT) [address] [address]Lysfjety Grans Absolute<0.04Normal<=0.09[facility] HospitalComment on above:Order Comment: Prior to first Gamunex Infusion and every 2 weeks if baseline CR is within normal limits.Performed By: #### BCR #### [facility] (DEFAULT) [address] [address]Mdisufdvbyl (Bld) [#/Vol]2.53 10*3/uLNormal1.16-3.51[facility] HospitalComment on above:Order Comment: Prior to first Gamunex Infusion and every 2 weeks if baseline CR is within normal limits. Performed By: #### BCR #### [facility] (DEFAULT) [address] [address]Ogtdlgpqhos/100 WBC (Bld)27.2 %[facility] OhioComment on above:Order Comment: Prior to first Gamunex Infusion and every 2 weeks if baseline CR is within normal limits.Performed By: #### BCR #### [facility] (DEFAULT) [address] [address]UQH (RBC) [Entitic vol]86.[address]27[address]6-97[address] [facility] HospitalComment on above:Order Comment: Prior to first Gamunex Infusion and every 2 weeks if baseline CR is within normal limits. Performed By: #### BCR #### [facility] (DEFAULT) [address] [address]Vylt Cell Hgb27.[address]kehjn63.9-33.9[facility] HospitalComment on above:Order Comment: Prior to first Gamunex Infusion and every 2 weeks if baseline CR is within normal limits.Performed By: #### BCR #### [facility] (DEFAULT) [address] [address]Xtvx Cell Hgb Conc31.5 g/qHTzooyo83.4-35.9[facility] HospitalComment on above:Order Comment: Prior to first Gamunex Infusion and every 2 weeks if baseline CR is within normal limits. Performed By: #### BCR #### [facility] (DEFAULT) [address] [address]Zhpbtbioh (Bld) [#/Vol]0.60 10*3/uLNormal0.22-0.87[facility] HospitalComment on above:Order Comment: Prior to first Gamunex Infusion and every 2 weeks if baseline CR is within normal limits. Performed By: #### BCR #### [facility] (DEFAULT) [address] [address]Fwedehgzl/100 WBC (Bld)6.4 %NormalMount St. Mary HospitalComment on above:Order Comment: Prior to first Gamunex Infusion and every 2 weeks if baseline CR is within normal limits.Performed By: #### BCR #### [facility] (DEFAULT) [address] [address]Ocetkrocg RBC0.0 /[address] WBCNormal<=0[address] [facility] HospitalComment on above:Order Comment: Prior to first Gamunex Infusion and every 2 weeks if baseline CR is within normal limits.Performed By: #### BCR #### [facility] (DEFAULT) [address] [address]Crzcadfi mean volume (Bld) [Entitic vol]9.5 fLNormal8.5-12.[address] [facility] HospitalComment on above:Order Comment: Prior to first Gamunex Infusion and every 2 weeks if baseline CR is within normal angel its.Performed By: #### BCR #### [facility] (DEFAULT) [address] [place] [address]Ojnfksjcz (Bld) [#/Vol]365 10*3/nWWomiaw940-903FbkmMount St. Mary HospitalComment on above:Order Comment: Prior to first Gamunex Infusion and every 2 weeks if baseline CR is within normal limits. Performed By: #### BCR #### [facility] (DEFAULT) [address] [place] [address]QUW (Bld) [#/Vol]3.89 10*6/uLLow3.91-5.04[facility] HospitalComment on above:Order Comment: Prior to first Gamunex Infusion and every 2 weeks if baseline CR is within normal limits.Performed By: #### BCR #### [facility] (DEFAULT) [address] [place] [address]PUH Yvumehhytvxq65.5 %Hhyacu98.8-14.9[facility] HospitalComment on above:Order Comment: Prior to first Gamunex Infusion and every 2 weeks if baseline CR is within normal limits.Performed By: #### BCR #### [facility] [facility] (DEFAULT) [address] [place] [id number] + Bands Auto64.4 %NormalMount St. Mary HospitalComment on above:Order Comment: Prior to first [facility] and every 2 weeks if baseline CR is within normal limits.Performed By: #### BCR #### [facility] (DEFAULT) [address] [place] [address] 31772Obvo + Bands,Absolute Auto5.99 K/uLNormal1.64-7.28Mount St. Mary HospitalComment on above:Order Comment: Prior to first [facility] and every 2 weeks if baseline CR is within normal limits. Performed By: #### BCR #### [facility] (DEFAULT) [address] [place] [address] 41951OOE (Bld) [#/Vol]9.31 10*3/uLNormal3.99-11.19Mount St. Mary HospitalComment on above:Order Comment: Prior to first [facility] and every 2 weeks if baseline CR is within normal limits. Performed By: #### BCR #### [facility] (DEFAULT) [address] [address]YIU Westergren method (Bld) [Velocity]Ordered By: Terence Martinez on [id number] (Bld) [Velocity]64 mm/hHighOhioHealthInterpretation and review of laboratory resultsAbnormSelect Medical Specialty Hospital - ColumbusioHealthOCT OPTIC NERVE OUon [id number] HospitalRadiology Study observation (narrative)[facility] HospitalBUN CREAon 56-16-6761Jpkahgbied [Mass/Vol]1.13 mg/dL0.50 - 1.20 mg/dLProtestant HospitalGFR/1.73 sq M.predicted MDRD (S/P/Bld) [Vol rate/Area]50 mL/min/{1.73_m2}Low>=60 mL/min/1.73sqCleveland Clinic [facility] GFR/1.73 sq M.predicted MDRD (S/P/Bld) [Vol rate/Area]mL/min/{1.73_m2}>=60 mL/min/1.73sqCleveland Clinic Euclid HospitalInterpretation and review of laboratory resultsAbnoPaulding County HospitalUrea nitrogen [Mass/Vol]20 mg/dL7 - 22 mg/dLProtestant HospitalUrea nitrogen/Creatinine [Mass ratio]18 mg/mgOSAdena Health SystemOSU [facility] GlenbeighCBC AND ELECTRONIC DIFFon 35-29-8167Ublzqpefv (Bld) [#/Vol]10*3/uL0.00 - 0.15 K/uLOSAdena Health SystemBasophils/100 WBC (Bld)0.3 %[facility] HospitalDIFF STATUSElectronic DifferentialOSU Acmc Healthcare System GlenbeighEosinophils (Bld) [#/Vol]0.16 10*3/uL0.00 - 0.42 K/uLOSAdena Health SystemEosinophils/100 WBC (Bld)2.1 %[facility] HospitalErythrocyte distribution width (RBC) [Ratio]14.0 %10.8 - 14.9 %[facility] HospitalHematocrit (Bld) [Volume fraction]33.7 %Low34.9 - 44.3 % [facility] HospitalHemoglobin (Bld) [Mass/Vol]10.3 g/dLLow11.4 - 15.2 g/dL [facility] HospitalImmature granulocytes (Bld) [#/Vol]10*3/uL<=0.09 K/uL [facility] HospitalImmature granulocytes/100 WBC (Bld)0.3 %[facility] HospitalInterpretation and review of laboratory resultsAbnormalOUniversity Hospitals Cleveland Medical CenterLymphocytes (Bld) [#/Vol]2.21 10*3/uL1.16 - 3.51 K/uLProtestant HospitalLymphocytes/100 WBC (Bld)29.3 %[facility] WestH (RBC) [Entitic mass]27.5 pg25.9 - 33.9 pgRegency Hospital Cleveland WestHC (RBC) [Mass/Vol]30.6 g/dLLow31.4 - 35.9 g/dLProtestant HospitalMCV (RBC) [Entitic vol]90.1 fL79.6 - 97.7 [facility] HospitalMonocytes (Bld) [#/Vol]0.46 10*3/uL0.22 - 0.87 K/uLProtestant HospitalMonocytes/100 WBC (Bld)6.1 %[facility] HospitalNeutrophils (Bld) [#/Vol]4.66 10*3/uL1.64 - 7.28 K/uLProtestant HospitalNucleated RBC/100 WBC (Bld) [Ratio]0.0 %<=0.2 /100 WBCProtestant HospitalPlatelet mean volume (Bld) [Entitic vol]9.5 fL 8.5 - 12.2 [facility] HospitalPlatelets (Bld) [#/Vol]357 10*3/uL150 - 393 K/[facility] HospitalRBC (Bld) [#/Vol]3.74 10*6/uLLowMercy Health St. Anne Hospitalegmented neutrophils/100 WBC (Bld)61.9 %[facility] WBC (Bld) [#/Vol]7.53 10*3/uL3.99 - 11.19 K/[facility] Mercy HospitalOSAdena Health SystemXR MYELOMA SURVEYon [id number]: No discrete lytic lesions or pathologic fractures. [...] AP Chest: No obvious displaced rib fracture. [facility] HospitalIra Gonzalez MD - 09/26/2020 EXAM: XR [...] discrete lytic lesions or pathologic fractures. OSU [facility] GlenbeighRadiology Study observation (narrative)OSU [facility] Glen[facility]ighXR MYELOMA SURVEYOrdered By: Ira Gonzalez on [id number] Hospital Work Phone: BUZ CREAon 15-08-4088Gilwdlygot [Mass/Vol]1.19 mg/dL 0.50 - 1.20 mg/dLOSAdena Health SystemGFR/1.73 sq M.predicted MDRD (S/P/Bld) [Vol rate/Area]47 mL/min/{1.73_m2}Low>=60 mL/min/1.73sqCleveland Clinic Euclid HospitalGFR/1.73 sq M.predicted MDRD (S/P/Bld) [Vol rate/Area]57 mL/min/{1.73_m2} Low>=60 mL/min/1.73sqCleveland Clinic Euclid HospitalInterpretation and review of laboratory resultsAbnormalOUniversity Hospitals Cleveland Medical CenterUrea nitrogen [Mass/Vol]26 mg/dLHigh7 - 22 mg/dLOSU [facility] Healthcare System GlenbeighUrea nitrogen/Creatinine [Mass ratio]22 mg/mgOSU [facility] System GlenbeighOSU [facility] GlenbeighCBC AND ELECTRONIC DIFFon 35-70-2956Bxwatwwuz (Bld) [#/Vol]0.05 10*3/uL0.00 - 0.15 K/uL OSAdena Health SystemBasophils/100 WBC (Bld)0.6 %[facility] DIFF STATUSElectronic DifferentialOSU [facility] System GlenbeighEosinophils (Bld) [#/Vol]0.24 10*3/uL0.00 - 0.42 K/uLOSAdena Health SystemEosinophils/100 WBC (Bld)2.8 %[facility] HospitalErythrocyte distribution width (RBC) [Ratio] 13.9 %10.8 - 14.9 %[facility] HospitalHematocrit (Bld) [Volume fraction] 33.5 %Low34.9 - 44.3 %[facility] HospitalHemoglobin (Bld) [Mass/Vol]10.7 g/dLLow11.4 - 15.2 g/dLProtestant HospitalImmature granulocytes (Bld) [#/Vol]10*3/uL<=0.09 K/uLOSAdena Health SystemImmature granulocytes/100 WBC (Bld)0.2 %[facility] HospitalInterpretation and review of laboratory resultsAbnormalOSU Acm[facility] Healthcare System GlenbeighLymphocytes (Bld) [#/Vol]2.63 10*3/uL 1.16 - 3.51 K/uLOSU [facility]cm[facility] Healthcare System GlenbeighLymphocytes/100 WBC (Bld)30.6 %[facility] HospitalMCH (RBC) [Entitic mass]28.1 pg25.9 - 33.9 pgOSU Acm[facility] Healthcare System GlenbeighMCHC (RBC) [Mass/Vol]31.9 g/dL31.4 - 35.9 g/dLProtestant HospitalMCV (RBC) [Entitic vol]87.9 fL79.6 - 97.7 fLOSU [facility] Monocytes (Bld) [#/Vol]0.50 10*3/uL0.22 - 0.87 K/[facility] Monocytes/100 WBC (Bld)5.8 %[facility] HospitalNeutrophils (Bld) [#/Vol] 5.15 10*3/uL1.64 - 7.28 K/[facility] HospitalNucleated RBC/100 WBC (Bld) [Ratio]0.0 %<=0.2 /100 WBCProtestant HospitalPlatelet mean volume (Bld) [Entitic vol]9.2 fL8.5 - 12.2 [facility] HospitalPlatelets (Bld) [#/Vol] 377 10*3/uL150 - 393 K/uLProtestant HospitalRBC (Bld) [#/Vol]3.81 10*6/uL LowMercy Health St. Anne Hospitalegmented neutrophils/100 WBC (Bld)60.0 %[facility] HospitalWBC (Bld) [#/Vol]8.59 10*3/uL3.99 - 11.19 K/uLRobert F. Kennedy Medical CenterCBC(NO DIFF)on 68-58-1772Zredhlygcec distribution width (RBC) [Ratio]15.0 %High11.5-14.5AGuernsey Memorial HospitalComment on above: Performed By: #### HEMOG, CMPF, LIP2, RTSH, T42 #### Testing performed at [address] [address]Euvssadohb (Bld) [Volume fraction]39.9 %Yywpgq44.0-48.0[facility] HospitalComment on above:Performed By: #### HEMOG, CMPF, LIP2, RTSH, T42 #### Testing performed at [address] [address]Euzfddqqmc (Bld) [Mass/Vol]13.3 g/iFBstpmr78.0-16.0[facility] HospitalComment on above:Performed By: #### HEMOG, CMPF, LIP2, RTSH, T42 #### Testing performed at [address] [address]QLS (RBC) [Entitic mass]28.3 gbFqagai05.0-35.0[facility] HospitalComment on above:Performed By: #### HEMOG, CMPF, LIP2, RTSH, T42 #### Testing performed at [address] [address]KVEL (RBC) [Mass/Vol]33.4 g/oOFlnkwt08.0-37.0[facility] HospitalComment on above:Performed By: #### HEMOG, CMPF, LIP2, RTSH, T42 #### Testing performed at [address] [address]WJX (RBC) [Entitic vol]84.7 fFCvkmaa67.0-100.0[facility] HospitalComment on above:Performed By: #### HEMOG, CMPF, LIP2, RTSH, T42 #### Testing performed at [address] [address]Tjpfazmq mean volume (Bld) [Entitic vol]6.9 fLLow7.4-11.0[facility] HospitalComment on above:Result Comment: Testing performed at [place] [id number] By: #### HEMOG, CMPF, LIP2, RTSH, T42 #### Testing performed at [address] [address]Jmgbdvamt (Bld) [#/Vol]275 10*3/kIAhrfwx663.0-400.0[facility] HospitalComment on above:Performed By: #### HEMOG, CMPF, LIP2, RTSH, T42 #### Testing performed at [address] [address]GYP (Bld) [#/Vol]4.72 10*6/uLNormal4.0-5.4AGuernsey Memorial Hospital Comment on above:Performed By: #### HEMOG, CMPF, LIP2, RTSH, T42 #### Testing performed at [address] [address]OXU (Bld) [#/Vol]6.7 10*3/uLNormal3.6-11.0[facility] Comment on above:Performed By: #### HEMOG, CMPF, LIP2, RTSH, T42 #### Testing performed at [address] [address]YMM FASTINGon 1A:G RATIO1.2 RATIOLow1.3-2.2AGuernsey Memorial HospitalComment on above:Performed By: #### HEMOG, CMPF, LIP2, RTSH, T42 #### Testing performed at [address] [address]ZYRBBPQ0.1 G/dlNormal3.5-5.0[facility] HospitalComment on above:Performed By: #### HEMOG, CMPF, LIP2, RTSH, T42 #### Testing performed at [address] [address]QAJ [Catalytic activity/Vol]103 U/DMvxxaa80-272DoaqwMercy Health St. Elizabeth [facility] HospitalComment on above:Performed By: #### HEMOG, CMPF, LIP2, RTSH, T42 #### Testing performed at [address] [address]KLT [Catalytic activity/Vol]17 U/LNormal<35[facility] Comment on above:Performed By: #### HEMOG, CMPF, LIP2, RTSH, T42 #### Testing performed at [address] [address]BWC [Catalytic activity/Vol]23 U/ZCswiwf61-13DqjxcMercy Health St. Elizabeth [facility] HospitalComment on above:Performed By: #### HEMOG, CMPF, LIP2, RTSH, T42 #### Testing performed at [address] [address]Lxfjlpbzs [Mass/Vol]0.1 mg/dLLow0.2-1.3AGuernsey Memorial Hospital Comment on above:Performed By: #### HEMOG, CMPF, LIP2, RTSH, T42 #### Testing performed at [address] [address]Wwmyjjg [Mass/Vol]9.2 mg/dLNormal8.4-10.2AGuernsey Memorial Hospital Comment on above:Performed By: #### HEMOG, CMPF, LIP2, RTSH, T42 #### Testing performed at [address] [address]Fwvogvmj [Moles/Vol]108 mmol/VMinz40-246LvtwuMercy Health St. [facility] Comment on above:Result Comment: Please note: Triglyceride levels of 600mg/dL or higher may positively bias chlorideresults by approximately 2.1 mmolPerformed By: #### HEMOG, CMPF, LIP2, RTSH, T42 #### Testing performed at [address] [address]FU0 [Moles/Vol]23 mmol/VBtdvwl93-48OcewbMercy Health St. Elizabeth [facility] HospitalComment on above:Performed By: #### HEMOG, CMPF, LIP2, RTSH, T42 #### Testing performed at [address] [address]Mydgkrpedi [Mass/Vol]1.00 mg/dLNormal0.7-1.2AGuernsey Memorial HospitalComment on above:Performed By: #### HEMOG, CMPF, LIP2, RTSH, T42 #### Testing performed at [address] [address]XML. GFR,>60NormalAGuernsey Memorial HospitalComment on above:Performed By: #### HEMOG, CMPF, LIP2, RTSH, T42 #### Testing performed at [address] [address]FCZ. GFR,Non >60NormNor-Lea General Hospital Comment on above:Performed By: #### HEMOG, CMPF, LIP2, RTSH, T42 #### Testing performed at [address] [address]TDU InformationAverage GFR for 50-59 years old = 93.NormalMercy Health St. Elizabeth [facility] HospitalComment on above:Result Comment: Chronic Kidney disease, GFR = <60. Kidney failure, GFR = <15. The GFR estimate is not adjusted for extreme body surface area or acute process, nor has it been validated for women or ethnic groups other than and . Testing performed at [place], [place] [address]Sperrssah By: #### HEMOG, CMPF, LIP2, RTSH, T42 #### Testing performed at [address] [address]Vicbbwh [Mass/Vol]193 mg/rBMdgj52-770ZbspnMercy Health St. [facility] Comment on above:Result Comment: NORMAL <100 mg/dL PREDIABETES 101-126 mg/dL DIABETES 126 mg/dL or higherPerformed By: #### HEMOG, CMPF, LIP2, RTSH, T42 #### Testing performed at [address] [address]Gptobgjlk [Moles/Vol]5.4 mmol/LHigh3.5-5.1AGuernsey Memorial Hospital Comment on above:Performed By: #### HEMOG, CMPF, LIP2, RTSH, T42 #### Testing performed at [address] [address]Njecbde [Mass/Vol]7.4 g/dLNormal6.3-8.2AGuernsey Memorial Hospital Comment on above:Performed By: #### HEMOG, CMPF, LIP2, RTSH, T42 #### Testing performed at [address] [address]Cfsami [Moles/Vol]140 mmol/UPoubdy601-214EymegMercy Health St. [facility] Comment on above:Performed By: #### HEMOG, CMPF, LIP2, RTSH, T42 #### Testing performed at [address] [address]Ousf nitrogen [Mass/Vol]19 mg/dLNormal7-20[facility] Comment on above:Performed By: #### HEMOG, CMPF, LIP2, RTSH, T42 #### Testing performed at [address] [address]MUPD T4on 93-51-3952Qaot T4 [Mass/Vol]1.01 ng/dLNormal0.78-2.[address] [facility] HospitalComment on above:Result Comment: Testing performed at [place], [place] [address]Bfoqrlibw By: #### HEMOG, CMPF, LIP2, RTSH, T42 #### Testing performed at [address] [address]SPUCYKWWON A1Con 17-62-0913Cqaxtwt [Mass/Vol]232 mg/dLNormal [facility] HospitalComment on above:Result Comment: Testing performed at [place], [place] [address]Dlpicosfh By: #### HA1CT #### Testing performed at [address] [address]NzD4e (Bld) [Mass fraction]9.7 %High0-[address] [place] [address] Comment on above:Result Comment: NORMAL <5.7% PREDIABETES 5.7-6.4% DIABETES 6.5% OR HIGHERPerformed By: #### HA1CT #### Testing performed at [address] [address]CCHEY PROFILEon 96-90-1622Chnettzkygc [Mass/Vol]232 mg/dLHigh 107-217[facility] HospitalComment on above:Performed By: #### HEMOG, CMPF, LIP2, RTSH, T42 #### Testing performed at [address] [address]Uzxsniuhgzc in HDL [Mass/Vol]51 mg/cEMgrlbq39-27KiinnMercy Health St. [facility] HospitalComment on above:Performed By: #### HEMOG, CMPF, LIP2, RTSH, T42 #### Testing performed at [address] [address]Jyggoahiqzj in LDL [Mass/Vol]154 mg/dLNormalAGuernsey Memorial HospitalComment on above:Performed By: #### HEMOG, CMPF, LIP2, RTSH, T42 #### Testing performed at [address] [address]Pbydksvmcmd in VLDL [Mass/Vol]27 mg/dLHigh5.0-25[facility] HospitalComment on above:Performed By: #### HEMOG, CMPF, LIP2, RTSH, T42 #### Testing performed at [address] [address]Yphwintprem.total/Cholesterol in HDL [Mass ratio]4.55 {ratio} NormalMercy Health St. Elizabeth Young[facility] HospitalComment on above:Result Comment: RISK TOTAL/HDL RATIO MEN WOMEN 1/2 AVERAGE 3.43 3.27 AVERAGE 4.97 4.44 2X AVERAGE 9.55 7.05 3X AVERAGE 23.99 11.04 Testing performed at [place] [address]Performed By: #### HEMOG, CMPF, LIP2, RTSH, T42 #### Testing performed at [address] [address]Nuecbdkixfip [Mass/Vol]133 mg/dLNormal0-150[facility] Comment on above:Performed By: #### HEMOG, CMPF, LIP2, RTSH, T42 #### Testing performed at [address] [address]QAVA/CREAT RATIO,URINEon 86-72-8880QSWS/CREAT RATIO,URINE30.9 mg MALB/g CREATHigh1.3-30.0[facility] HospitalComment on above:Result Comment: Testing performed at [place] [address]Performed By: #### MCRAT #### Testing performed at [address] [address]INJGFORAISPV,RANDOM URINE23.6 mg/LHigh0-16.7AGuernsey Memorial HospitalComment on above:Performed By: #### MCRAT #### Testing performed at [address] [address]MASAA CREATININE POHJGL86.3 MG/DLNormNor-Lea [facility] Hospital Comment on above:Result Comment: NO NORMAL VALUES ESTABLISHED FOR RANDOM SPECIMENSPerformed By: #### MCRAT #### Testing performed at [address] [address]WMK,REFLEX FREE T4on 94-34-3640XLE,REFLEX FREE T46.890 uIU/ML High0.46-4.68[facility] HospitalComment on above:Result Comment: Testing performed at [place] [id number] By: #### HEMOG, CMPF, LIP2, RTSH, T42 #### Testing performed at [address] [address]PIL FASTINGon 1A:G RATIO1.2 RATIOLow1.3-2.2AGuernsey Memorial HospitalComment on above:Performed By: #### HEMOG, CMPF, LIP2, RTSH, T42 #### Testing performed at [address] [address]MRDRCLZ5.1 G/dlNormal3.5-5.0[facility] HospitalComment on above:Performed By: #### HEMOG, CMPF, LIP2, RTSH, T42 #### Testing performed at [address] [address]UVE [Catalytic activity/Vol]103 U/DHinbeg31-749LxpkxMercy Health St. Elizabeth [facility] HospitalComment on above:Performed By: #### HEMOG, CMPF, LIP2, RTSH, T42 #### Testing performed at [address] [address]WIO [Catalytic activity/Vol]15 U/LNormal<35[facility] Comment on above:Performed By: #### HEMOG, CMPF, LIP2, RTSH, T42 #### Testing performed at [address] [address]NDG [Catalytic activity/Vol]42 U/TCedd47-88QrvddMercy Health St. [facility] Comment on above:Performed By: #### HEMOG, CMPF, LIP2, RTSH, T42 #### Testing performed at [address] [address]Whpmdnkfx [Mass/Vol]0.2 mg/dLNormal0.2-1.3AGuernsey Memorial Hospital Comment on above:Performed By: #### HEMOG, CMPF, LIP2, RTSH, T42 #### Testing performed at [address] [address]Kwhbgzd [Mass/Vol]9.3 mg/dLNormal8.4-10.2AGuernsey Memorial Hospital Comment on above:Performed By: #### HEMOG, CMPF, LIP2, RTSH, T42 #### Testing performed at [address] [address]Cyltatee [Moles/Vol]111 mmol/HFnrc16-783VrfufMercy Health St. [facility] Comment on above:Result Comment: Please note: Triglyceride levels of 600mg/dL or higher may positively bias chlorideresults by approximately 2.1 mmolPerformed By: #### HEMOG, CMPF, LIP2, RTSH, T42 #### Testing performed at [address] [address]IJ3 [Moles/Vol]17 mmol/LCritically mub67-75FhcvqMercy Health St. [facility] Comment on above:Result Comment: CALLED TO AND READ BACK BY DAVE CHATTERJEE AT 1115 ON 1Performed By: #### HEMOG, CMPF, LIP2, RTSH, T42 #### Testing performed at [address] [address]Zszylggkkm [Mass/Vol]1.10 mg/dLNormal0.7-1.2AGuernsey Memorial HospitalComment on above:Performed By: #### HEMOG, CMPF, LIP2, RTSH, T42 #### Testing performed at [address] [address]BJO. GFR,>60NormalAGuernsey Memorial HospitalComment on above:Performed By: #### HEMOG, CMPF, LIP2, RTSH, T42 #### Testing performed at [address] [address]RSA. GFR,Non Lioxtsdp46 ml/min/1.73sq.mNormalMercy Health St. Elizabeth [facility]stown HospitalComment on above:Performed By: #### HEMOG, CMPF, LIP2, RTSH, T42 #### Testing performed at [address] [address]CQB InformationAverage GFR for 50-59 years old = 93.NormalMercy Health St. Elizabeth Youngstown HospitalComment on above:Result Comment: Chronic Kidney disease, GFR = <60. Kidney failure, GFR = <15. The GFR estimate is not adjusted for extreme body surface area or acute process, nor has it been validated for women or ethnic groups other than and . Testing performed at [place] [id number] By: #### HEMOG, CMPF, LIP2, RTSH, T42 #### Testing performed at [address] [address]Mzcuaqb [Mass/Vol]190 mg/vPRiqd84-744RdgfhMercy Health St. [facility] Comment on above:Result Comment: NORMAL <100 mg/dL PREDIABETES 101-126 mg/dL DIABETES 126 mg/dL or higherPerformed By: #### HEMOG, CMPF, LIP2, RTSH, T42 #### Testing performed at [address] [address]Ujkyyapfj [Moles/Vol]3.7 mmol/LNormal3.5-5.1AGuernsey Memorial HospitalComment on above:Performed By: #### HEMOG, CMPF, LIP2, RTSH, T42 #### Testing performed at [address] [address]Rlutzqi [Mass/Vol]7.6 g/dLNormal6.3-8.2AGuernsey Memorial Hospital Comment on above:Performed By: #### HEMOG, CMPF, LIP2, RTSH, T42 #### Testing performed at [address] [address]Irduak [Moles/Vol]138 mmol/YZbjohy001-453AvgabMercy Health St. [facility] Comment on above:Performed By: #### HEMOG, CMPF, LIP2, RTSH, T42 #### Testing performed at [address] [address]Pazp nitrogen [Mass/Vol]24 mg/dLHigh7-20[facility] Comment on above:Performed By: #### HEMOG, CMPF, LIP2, RTSH, T42 #### Testing performed at [address] [address]FUKYHQTWIH A1Con 42-52-9435Jeyjafm [Mass/Vol]240 mg/dLNormal [facility] HospitalComment on above:Result Comment: Testing performed at [place], [place] [address]Khqdqscvd By: #### HEMOG, CMPF, LIP2, RTSH, T42 #### Testing performed at [address] [address]DxV2a (Bld) [Mass fraction]10.0 %High[address] Comment on above:Result Comment: NORMAL <5.7% PREDIABETES 5.7-6.4% DIABETES 6.5% OR HIGHERPerformed By: #### HEMOG, CMPF, LIP2, RTSH, T42 #### Testing performed at [address] [address]EYOFR PROFILEon 08-06-7577Pwlivmbrkwi [Mass/Vol]228 mg/dLHigh 107-217[facility] HospitalComment on above:Performed By: #### HEMOG, CMPF, LIP2, RTSH, T42 #### Testing performed at [address] [address]Xglspzsqbcd in HDL [Mass/Vol]36 mg/fOUbcini92-77UutjfMercy Health St. Elizabeth [facility] HospitalComment on above:Performed By: #### HEMOG, CMPF, LIP2, RTSH, T42 #### Testing performed at [address] [address]Flhqgjbsbht in LDL [Mass/Vol]161 mg/dLNormalAGuernsey Memorial HospitalComment on above:Performed By: #### HEMOG, CMPF, LIP2, RTSH, T42 #### Testing performed at [address] [address]Czpkactxpps in VLDL [Mass/Vol]31 mg/dLHigh5.0-25[facility] HospitalComment on above:Performed By: #### HEMOG, CMPF, LIP2, RTSH, T42 #### Testing performed at [address] [address]Pjkuqazntyl.total/Cholesterol in HDL [Mass ratio]6.33 {ratio} NormalMercy Health St. Elizabeth Youngstown HospitalComment on above:Result Comment: RISK TOTAL/HDL RATIO MEN WOMEN 1/2 AVERAGE 3.43 3.27 AVERAGE 4.97 4.44 2X AVERAGE 9.55 7.05 3X AVERAGE 23.99 11.04 Testing performed at [place] [address]Performed By: #### HEMOG, CMPF, LIP2, RTSH, T42 #### Testing performed at [address] [address]Aywcepcnrakp [Mass/Vol]157 mg/dLHigh0-150[facility] Comment on above:Performed By: #### HEMOG, CMPF, LIP2, RTSH, T42 #### Testing performed at [address] [address]HKBO/CREAT RATIO,URINEon 32-80-7828IKJI/CREAT RATIO,URINE18.8 mg MALB/g CREATNormal1.3-30.0[facility] HospitalComment on above:Result Comment: Testing performed at [place] [address]Performed By: #### MCRAT #### Testing performed at [address] [address]TABKRCSEAGCB,RANDOM URINE9.3 mg/LNormal0-16.7AGuernsey Memorial HospitalComment on above:Performed By: #### MCRAT #### Testing performed at [address] [address]AERTX CREATININE XDJHKP09.4 MG/DLNormNor-[facility] Comment on above:Result Comment: NO NORMAL VALUES ESTABLISHED FOR RANDOM SPECIMENSPerformed By: #### MCRAT #### Testing performed at [address] [address]PE RIBS LT PA Boby 52-89-2933BI RIBS LT PA CHEXAMINATION: XR RIBS LT [...] Electronically authenticated by: LUIS ANDRES Date: 2020-01-27 13:26[facility] YoungstownXR FINGER MIN 2 VIEWSon 08-04-2755VH FINGER MIN 2 VIEWS PROCEDURE: XR FINGER [...] Electronically authenticated by: LUIS ANDRES Date: 2019-12-22 10:13[facility] YoungstownBLOOD UREA NITROGENon 44-17-0732Osnw nitrogen [Mass/Vol]16 mg/dLNormal7-[facility] Va Medical CenterCREATININE,SERUMon 48-96-4653Cghiovnutq [Mass/Vol]Average GFR for 50-59 years old = 93.[facility] Comment on above:Result Comment: Chronic Kidney disease, GFR = <60. Kidney failure, GFR = <15. The GFR estimate is not adjusted for extreme body surface area or acute process, nor has it been validated for women or ethnic groups other than and .Creatinine [Mass/Vol]mg/dLNoProMedica Bay Park HospitalCreatinine [Mass/Vol]52 ml/min/1.73sq.[facility] Creatinine [Mass/Vol]1.14 mg/dLNormal0.7-1.2AMedicine Lodge Memorial HospitalFAX REQUESTon [id number] [phone] Bay Park HospitalBLOOD UREA NITROGENon [id number] nitrogen [Mass/Vol]23 mg/dLHigh7-20[facility] CREATININE,SERUMon [id number] [Mass/Vol]38 ml/min/1.73sq.mNormalDwight D. Eisenhower Va Medical CenterCreatinine [Mass/Vol]47 ml/min/1.73sq.City HospitalCreatinine [Mass/Vol]Average GFR for 50-59 years old = 93.[facility] HospitalComment on above:Result Comment: Chronic Kidney disease, GFR = <60. Kidney failure, GFR = <15. The GFR estimate is not adjusted for extreme body surface area or acute process, nor has it been validated for women or ethnic groups other than and .Creatinine [Mass/Vol]1.49 mg/dLHigh0.7-1.2AMedicine Lodge Memorial HospitalFAX REQUESTon 14-46-2319RDT [phone] Bay Park HospitalUS DUPLEX EXTREMITY DVT LEFTon [id number] DUPLEX EXTREMITY DVT LEFT LEFT LOWER EXTREMITY [...] cm x 2.1 cm and may be reactive.NormalDwight D. Eisenhower Va Medical CenterCulture,Bacterialon [id number],BacterialTest Name: Culture,Bacterial Site: LEFT FOOT Culture Status: [...] S <= 10 F Vancomycin S 1 FNOhioHealth Grove City Methodist HospitalComment on above: Performed By: #### CULT ####Unless otherwise noted, all testing performed by [facility] [facility].[place], [place] [id number]: [id number] Director: Skylar Niño M.D.Progress Noteon 77-06-9703LlwpxaeMetroHealth [facility] [address] [facility] [place] [address] NAME MEG GEORGES [facility] [id number] 1965 DATE PROGRESS NOTE Meg is seen [...] to use it. MARK MARQUEZ 12/16/2017 11:25 [id number] T 12/16/2017 15:16 BJZ/MODL Electronically Signed By Pili Gilliam DPM on 17 Dec 2017 19:19:18 GMTNormal [facility] HospitalCulture,Bacterialon 12-02-2017 Culture,BacterialTest Name: Culture,Bacterial Site: LEFT FOOT Culture Status: Final Culture Report: Normal Rob Gram Stain: No WBC's No Squamous Epithelial Cells No Organisms Seen Micro Source: Wound drainageNormalOCleveland Clinic [facility] Comment on above:Performed By: #### CULT ####Unless otherwise noted, all testing performed by [facility], [place] [phone]: [id number] Director: Skylar Niño M.D.MRI LOWER EXT JOINT W/O CONTon [id number] LOWER EXT JOINT W/O CONTFinal Report Accession No: [id number] Performed: Nov 25 2017 8:32AM Examination: [...] NICHOLS M.D. Trans: n/a : cc:[facility] HospitalCulture,Bacterialon 11-03-2017 Culture,BacterialTest Name: Culture,Bacterial Site: LEFT [...] <= 1 F Trimeth/Sulfa S <= 20 FNOhioHealth Grove City Methodist HospitalComment on above:Performed By: #### CULT ####Unless otherwise noted, all testing performed by [facility] [place], [place] [id number]: [id number] Director: Skylar Niño M.D.Progress Noteon 03-08-1011CptxuoaMetroHealth [facility] [address] [facility] [place] [address] NAME MEG GEORGES [facility] [id number] 1965 DATE 08/29/2017 PROGRESS NOTE Ms. Georges [...] [facility]. MARK MILLER 08/29/2017 18:22 [id number] T 08/30/2017 08:46 KM/[facility] Electronically Signed By Mark Anthony Mcdonald Dpm on 05 Sep 2017 23:32:42 [facility] HospitalCulture,Bacterialon 08-14-2017 Culture,BacterialTest Name: Culture,Bacterial Site: Left 1st MPJ ulcer/ celluli Culture Status: Final Culture Report: No Growth - Day 2 Gram Stain: Rare WBC's Few RBC's No Organisms Seen Micro Source: WoundNormalOhioHOhioHealth Van Wert HospitalComment on above:Performed By: #### CULT #### Unless otherwise noted, all testing performed by [facility] [address] [place], [place] [address] CLIA: [id number] Manager Material: Skylar Niño M.D.Progress Noteon 27-00-7124Tgaoebu mass conc [facility] [address] [place] [address] NAME MEG GEORGES [facility] [id number] 1965 DATE 06/13/2017 PROGRESS NOTE SUBJECTIVE Ms. [...] She related understanding. MARK MILLER 06/13/2017 10:44 [id number] T 06/13/2017 11:35 KMH/MODL Electronically Signed By Mark Anthony Mcdonald Dpm on 19 Jun 2017 14:55:04 TNormal [facility] HospitalConsultationon 61-99-7163Dkrawstkstdq [facility] [address] [address] NAME MEG GEORGES [facility] [id number] 1965 DATE 04/11/2017 CONSULTATION [employer]ING [employer]EMAN MARTHA YAN DPM REFERRING PHYSICIAN: Neri Purcell [...] any complications arise. MARK ELMORE 04/11/2017 16:16 [id number] T 04/11/2017 20:46 RCI/MODL cc: Neri Purcell, Electronically Signed By Martha Yan DPM on 16 Apr 2017 22:59:57 [facility] [address] [facility] [place] [address] NAME MEG GEORGES [facility] [id number] 1965 DATE 06/06/2017 PROGRESS NOTE PROGRESS NOTE [...] arise. MARTHA YAN DPM D 06/06/2017 22:10 [id number] T 06/07/2017 08:57 RCI/MODL Electronically Signed By Martha Yan DPM on 10 Jun 2017 00:05:11 GMT [facility] with Diffon 06-04-2017 Basophils #/vol (Bld)0.0 K/mcLNormal0-0.2[facility] HospitalComhelen devos children's hospital on above:Performed By: #### CBCDIF, CMET, EDCTNI #### Unless otherwise noted, all testing performed by [place] [address] CLIA: [id number] Manager Material: Skylar Niño M.D.Basophils/100 WBC (Bld)0.5 %[facility] HospitalComhelen [facility] on above:Performed By: #### CBCDIF, CMET, EDCTNI #### Unless otherwise noted, all testing performed by [address] CLIA: [id number] Manager Material: Skylar Niño M.D.Eosinophils #/vol (Bld)0.2 K/mcLNormal0-0.5 [facility] HospitalComhelen devos children[facility] hospital on above:Performed By: #### CBCDIF, CMET, EDCTNI #### Unless otherwise noted, all testing performed by [address] CLIA: [id number] Manager Material: Skylar Niño M.D.Eosinophils/100 WBC (Bld)2.5 %[facility] HospitalComhelen devos children[facility] hospital on above:Performed By: #### CBCDIF, CMET, EDCTNI #### Unless otherwise noted, [place] [address] CLIA: [id number] Manager Material: Skylar Niño M.D.Erythrocyte distribution width Ratio (RBC) 13.3 %Xwaoil24-94.4[facility]uff[facility] HospitalComment on above: Performed By: #### CBCDIF, CMET, EDCTNI #### Unless otherwise noted, all testing performed by [address] [address] CLIA: [id number] Manager Material: Skylar Niño M.D.Hematocrit Volume Fraction (Bld)39.7 % Hxcuoh75.4-44.8[facility] HospitalComment on above: Performed By: #### CBCDIF, CMET, EDCTNI #### Unless otherwise noted, all testing performed by [address] [address] CLIA: [id number] Manager Material: Skylar Niño M.D.Hemoglobin mass conc (Bld)13.3 g/dLNormal 11.6-15.4[facility] HospitalComment on above:Performed By: #### CBCDIF, CMET, EDCTNI #### Unless otherwise noted, all testing performed by [address] [address] CLIA: [id number] Manager Material: Skylar Niño M.D.Lymphocytes #/vol (Bld)4.0 K/mcLHigh1.0-3.7 [facility] HospitalComhelen devos children[facility] hospital on above:Performed By: #### CBCDIF, CMET, EDCTNI #### Unless otherwise noted, all testing performed by [address] [address] CLIA: [id number] Manager Material: Skylar Niño M.D.Lymphocytes/100 WBC (Bld)42.6 %Normal [facility] HospitalComhelen devos children[facility] hospital on above:Performed By: #### CBCDIF, CMET, EDCTNI #### Unless otherwise noted, [place] [address] CLIA: [id number] Manager Material: Skylar Niño M.D.MCH Entitic mass (RBC)30.1 pgNormal 27.9-33.9[facility] HospitalComment on above:Performed By: #### CBCDIF, CMET, EDCTNI #### Unless otherwise noted, [place] [address] CLIA: [id number] Manager Material: Skylar Niño M.D.MCHC mass conc (RBC)33.6 g/dLNormal 33.1-35.1[facility] HospitalComment on above:Performed By: #### CBCDIF, CMET, EDCTNI #### Unless otherwise noted, [place] [address] CLIA: [id number] Manager Material: Skylar Niño M.D.MCV Entitic volume (RBC)89.7 fLNormal 82.6-98.9[facility] HospitalComment on above:Performed By: #### CBCDIF, CMET, EDCTNI #### Unless otherwise noted, [place] [address] CLIA: [id number] Manager Material: Skylar Niño M.D.Monocytes #/vol (Bld)0.6 K/mcLNormal0.1-0.6 [facility] HospitalComhelen [facility] hospital on above:Performed By: #### CBCDIF, CMET, EDCTNI #### Unless otherwise noted, [place] [address] CLIA: [id number] Manager Material: Skylar Niño M.D.Monocytes/100 WBC (Bld)5.9 %Normal [facility] HospitalComhelen devos [facility] hospital on above:Performed By: #### CBCDIF, CMET, EDCTNI #### Unless otherwise noted, [place] [address] CLIA: [id number] Manager Material: Skylar Niño M.D.Neutrophils #/vol (Bld)4.6 K/mcLNormal 1.2-6.9[facility] HospitalComhelen [facility] hospital on above:Performed By: #### CBCDIF, CMET, EDCTNI #### Unless otherwise noted, [place] [address] CLIA: [id number] Manager Material: Skylar Niño M.D.Platelet mean volume Entitic volume (Bld) 6.9 fLLow7.0-10.6[facility] HospitalComhelen [facility]os [facility] on above: Performed By: #### CBCDIF, CMET, EDCTNI #### Unless otherwise noted, [place] [address] CLIA: [id number] Manager Material: Skylar Niño M.D.Platelets #/vol (Bld)377 K/phYCwxrhs624-[address] [facility] on above:Performed By: #### CBCDIF, CMET, EDCTNI #### Unless otherwise noted, [place] [address] CLIA: [id number] Manager Material: Skylar Niño M.D.RBC #/vol (Bld)4.42 M/mcLNormal3.7-5.0 [facility] HospitalComhelen [facility] on above:Performed By: #### CBCDIF, CMET, EDCTNI #### Unless otherwise noted, [place] [address] CLIA: [id number] Manager Material: Skylar Niño M.D.Segmented Neut %48.5 %NormalOhAdena Health SystemComment on above:Performed By: #### CBCDIF, CMET, EDCTNI #### Unless otherwise noted, [place] [address] CLIA: [id number] Manager Material: Skylar Niño M.D.WBC #/vol (Bld)9.5 K/mcLNormal3.4-10.6 [facility] HospitalComment on above:Performed By: #### CBCDIF, CMET, EDCTNI #### Unless otherwise noted, [place] [address] CLIA: [id number] Manager Material: Skylar Niño M.D.Comprehensive Metabolic Panelon 06-04-2017 Albumin mass conc3.8 g/dLNormal3.2-5.2[facility] Comment on above:Performed By: #### CBCDIF, CMET, EDCTNI #### Unless otherwise noted, [place] [address] CLIA: [id number] Manager Material: Skylar Niño M.D.ALP enzyme act/dbm253 U/WUtfenr12-651 [facility] HospitalComment on above:Performed By: #### CBCDIF, CMET, EDCTNI #### Unless otherwise noted, [place] [address] CLIA: [id number] Manager Material: Skylar Renay, M.D.ALT enzyme act/vol43 U/XMthzyn92-47 [facility] HospitalComhelen [facility] on above:Result Comment: This test result might be falsely depressed or falsely elevated on samples drawn from patients taking Sulfasalazine and Sulfapyridine. Venipuncture should occur prior to taking either of these drugs.Performed By: #### CBCDIF, CMET, EDCTNI #### Unless otherwise noted, [place] [address] CLIA: [id number] Manager Material: Skylar Niño M.D.AST enzyme act/vol20 U/LNormal0-45 [facility] HospitalComhelen [facility]os [facility] on above:Result Comment: This test result might be falsely depressed or falsely elevated on samples drawn from patients taking Sulfasalazine and Sulfapyridine. Venipuncture should occur prior to taking either of these drugs.Performed By: #### CBCDIF, CMET, EDCTNI #### Unless otherwise noted, [place] [address] CLIA: [id number] Manager Material: Skylar Niño M.D.Bilirubin mass conc0.3 mg/dLNormal0.3-1.2 [facility] HospitalComhelen devos [facility] on above:Performed By: #### CBCDIF, CMET, EDCTNI #### Unless otherwise noted, [place] [address] CLIA: [id number] Manager Material: Skylar Niño M.D.Calcium mass conc9.4 mg/dLNormal8.4-10.2 [facility] HospitalComhelen [facility] on above:Performed By: #### CBCDIF, CMET, EDCTNI #### Unless otherwise noted, [place] [address] CLIA: [id number] Manager Material: Skylar Niño M.D.Chloride molar uohi493 mmol/CXgrxxg70-[address] [facility] on above:Performed By: #### CBCDIF, CMET, EDCTNI #### Unless otherwise noted, all testing performed by [place] [address] CLIA: [id number] Manager Material: Skylar Niño M.D.CO2 molar conc26 mmol/EEprehp71-00 [facility] HospitalComhelen devos children[facility] on above:Performed By: #### CBCDIF, CMET, EDCTNI #### Unless otherwise noted, [place] [address] CLIA: [id number] Manager Material: Skylar Niño M.D.Creatinine mass conc1.10 mg/dLNormal 0.40-1.10[facility] on above:Performed By: #### CBCDIF, CMET, EDCTNI #### Unless otherwise noted, [place] [address] CLIA: [id number] Manager Material: Skylar Niño M.D.GFR/1.73 sq M predicted among blacks MDRD vol rate/area (S/P/Bld)mL/min/{1.73_m2}NormalWilson Street Hospital on above:Result Comment: GFR CalcPerformed By: #### CBCDIF, CMET, EDCTNI #### Unless otherwise noted, [place] [address] CLIA: [id number] Manager Material: Skylar Niño M.D.GFR/1.73 sq M predicted among non-blacks MDRD vol rate/area (S/P/Bld)52 mL/min/{1.73_m2}Low>60[facility] on above:Result Comment: Non- GFR Calc eGFR [...] Unless otherwise noted, [place] [address] CLIA: [id number] Manager Material: Skylar Niño M.D.Glucose mass lkue344 mg/rPQxiq20-[address] [facility] on above:Result Comment: This test result might be falsely depressed or falsely elevated on samples drawn from patients taking Sulfasalazine and Sulfapyridine. Venipuncture should occur prior to taking either of these drugs.Performed By: #### CBCDIF, CMET, EDCTNI #### Unless otherwise noted, [place] [address] CLIA: [id number] Manager Material: Skylar Niño M.D.Potassium molar conc4.2 mmol/LNormal3.5-5.[address] [facility] on above:Performed By: #### CBCDIF, CMET, EDCTNI #### Unless otherwise noted, [place] [address] CLIA: [id number] Manager Material: Skylar Niño M.D.Protein mass conc7.8 g/dLNormal6.0-8.[address] [facility] on above:Performed By: #### CBCDIF, CMET, EDCTNI #### Unless otherwise noted, all [place] [address] CLIA: [id number] Manager Material: Skylar Niño M.D.Sodium molar bokk993 mmol/CGvhbdz281-884 [facility] HospitalComment on above:Performed By: #### CBCDIF, CMET, EDCTNI #### Unless otherwise noted, [place] [address] CLIA: [id number] Manager Material: Skylar Niño M.D.Urea nitrogen mass conc15 mg/dLNormal8-25 [facility] HospitalComment on above:Performed By: #### CBCDIF, CMET, EDCTNI #### Unless otherwise noted, [place] [address] CLIA: [id number] Manager Material: Skylar Niño M.D.ED Cardiac Troponin-Ion 12-04-3531Jtgwomaz I.cardiac mass concng/mLNormal< 45OhAdena Health System Comment on above:Result Comment: Elevation of troponin [...] Unless otherwise noted, [place] [address] CLIA: [id number] Manager Material: Skylar Niño M.D.RIBS UNILATERALon 61-44-5085FHZY UNILATERAL Final Report Accession No: [id number] Performed: Jun 04 2017 9:56PM Examination: [...] Physician: IVETT TANNER M.D. Trans: istumb : cc:[facility] HospitalCulture,Bacterialon 04-22-2017 Culture,BacterialTest Name: Culture,Bacterial Site: LEFT [...] <= 10 F Vancomycin S <= 0.5 FNOhioHealth Grove City Methodist HospitalComment on above:Performed By: #### CULT #### Unless otherwise noted, all testing performed by [address] [place] [address] CLIA: [id number] Manager Material: Skylar Niño M.D.Progress Noteon 60-94-5886Vwcvmet[address] [place] [address] NAME MEG GEORGES [facility] [id number] 1965 DATE PROGRESS NOTE Meg seen today [...] in a week. MARK MARQUEZ 04/22/2017 12:51 [id number] T 04/22/2017 16:19 BJZ/RICAL Electronically Signed By Pili Gilliam DPM on 23 Apr 2017 17:35:14 GMTNormal [facility] HospitalCulture,Bacterialon 04-18-2017 Culture,BacterialTest Name: Culture,Bacterial Site: left foot Culture Status: Final Gram Stain: Rare WBC's Rare Squamous Epithelial Cells Rare Gram Positive Cocci Micro Source: Wound drainage ORGANISM ID: 1 - Moderate STAPHYLOCOCCUS AUREUS ANTIBIOTIC INTERPRETATION BECKY STATUS Clindamycin S 0.25 F Doxycycline S <= 0.5 F Erythromycin S <= 0.25 F Oxacillin S 0.5 F Trimeth/Sulfa S <= 10 F Vancomycin S 1 FNOhioHealth Grove City Methodist HospitalComment on above: Performed By: #### CULT #### Unless otherwise noted, all testing performed by [address] [address] CLIA: [id number] Manager Material: Skylar Niño M.D. Vital Signs Date TimeVital SignValuePerforming AtiybnsnhGbijznww12-34-0932 20:30-0400 Diastolic blood tgxjihdj31 mm[Hg]Anthony Lucero DO Work Phone: bon [facility]06-24-2022 20:30-0400Heart rate88 /minChristopher Hauger DO Work Phone: bon [facility]06-24-2022 20:30-0400 Respiratory rate18 /minChristopher Hauger DO Work Phone: bon [facility]06-24-2022 20:30-0602OcG4% (BldA) [Mass fraction]100 %Anthony Lucero DO Work Phone: bon [facility]06-24-2022 20:30-0400Systolic blood zbxbsdur293 mm[Hg]Anthony Lucero DO Work Phone: bon [employer]06-24-2022 18:00-0400Body nhwscilyccv890 [degF]Anthony Lucero DO Work Phone: YON [employer]06-24-2022 13:33-0400Body olttul870.1 Denys Lucero DO Work Phone: NON Cl[facility]! [facility]ITALBiomeasurePXSLGF79-17-5183 06:00-0400Body mass index (BMI) [Ratio]21.72 kg/f7Ozkkzucdnvnbarron Lucero DO Work Phone: EON [employer]06-22-2022 06:00-0400Body uimoti87.2 kgChbarron Lucero DO Work Phone: YON [facility]ITALBiomeasureQXCPEU73-48-6560 14:00-0400Diastolic blood liblozzs22 mm[Hg]Anthony Villarreal MD Work Phone: BON [employer]05-28-2022 14:00-0400Heart ptub484 /Hernandez Villarreal MD Work Phone: BON [employer]05-28-2022 14:00-7045KwJ0% (BldA) [Mass fraction]94 %Anthony Villarreal MD Work Phone: BON [employer]05-28-2022 14:00-0400Systolic blood iwhqxvnr987 mm[Hg]Anthony Villarreal MD Work Phone: BON [employer]05-28-2022 11:15-0400 Respiratory rate16 /Hernandez Villarreal MD Work Phone: BON [employer]05-27-2022 20:37-0400Body yzngua475.1 Denys Villarreal MD Work Phone: BON [employer]05-27-2022 20:37-0400Body mass index (BMI) [Ratio]23.3 kg/p5RnpivnbxsopAnthony Villarreal MD Work Phone: BON [facility]05-27-2022 20:37-0400Body hiwppw93.5 kgChbarron Villarreal MD Work Phone: BON [facility]05-27-2022 20:20-0400Body yauypjxckpz87.5 [degF]Anthony Villarreal MD Work Phone: BON [facility]05-24-2022 10:55-0400Body vqlkkssayxg79.81 [degF]Wil Martinez MD Work Phone: [facility]05-24-2022 10:55-0400Diastolic blood nfgygkcf09 mm[Hg]Wil Martinez MD Work Phone: [facility]05-24-2022 10:55-0400Heart rate88 /Shellie Martinez MD Work Phone: [facility]05-24-2022 10:55-0400 Respiratory rate14 /minWil Martinez MD Work Phone: [facility]05-24-2022 10:55-0008PfA2% (BldA) [Mass fraction]98 %Wil Martinez MD Work Phone: [facility]05-24-2022 10:55-0400Systolic blood mm[Hg]Wil Martinez MD Work Phone: [facility]05-24-2022 06:00-0400Body mass index (BMI) [Ratio]26.91 kg/g0HjjemohcxWil Martinez MD Work Phone: [facility]05-24-2022 06:00-0400Body etancu84.35 kgWil Martinez MD Work Phone: [facility]05-19-2022 15:43-0400Body .1 cmAlexmelida Martinez MD Work Phone: [facility]05-12-2022 09:45-0400Diastolic blood szpndyby66 mm[Hg]Chris Boothe MD Work Phone: [phone] [place], [place] 356[address]5-12-2022 09:45-0400Heart yjwz540 /min Chris Boothe MD Work Phone: 1([phone] [place], [place] 2795305-12-2022 09:45-0400Respiratory rate25 /minChris Boothe MD Work Phone: 1(605)[address] [place], [place] 2795305-12-2022 09:45-7491FqH4% (BldA) [Mass fraction]98 %Chris Boothe MD Work Phone: 1(428)[address] [place], [place] 27[address]305-12-2022 09:45-0400Systolic blood xcyogcfp810 mm[Hg]Chris Boothe MD Work Phone: 1([phone] [place], [place] 27[address]305-12-2022 07:41-0400Body mass index (BMI) [Ratio]24.13 kg/m2Chris Boothe MD Work Phone: 1(276)[address] [place], [place] 27[address]305-12-2022 07:41-0400Body pcaetl81.77 kg Chris Boothe MD Work Phone: [phone] [place] [address]-12-2022 03:49-0400Body edoxlxuohlx09.9 [degF]Chris Boothe MD Work Phone: [phone])[address] [place], [place] 2795303-25-2022 15:31-0400Diastolic blood mowwzksh92 mm[Hg][address]03-25-2022 15:31-0400 Heart rate84 /[address]03-25-2022 15:31-0400 Respiratory rate16 /min[address]03-25-2022 15:31-0400Systolic blood mm[Hg][address]03-25-2022 13:31-0400Body jgxmmmterva28.2 [degF][address]03-15-2022 14:36-0400Body mass index (BMI) [Ratio]25.81 kg/m2Tia Baugh PA-C Work Phone: 1(282) [phone]olixf56-19-7248 14:36-0400Body .29 [degF]Tia Baugh PA-C Work Phone: 1(333) [phone]ljgqm71-05-9187 14:36-0400Body .35 kgTia Baugh PA-C Work Phone: 1(282) [phone]xeood17-97-7610 14:36-0400Diastolic blood hpvtnyng80 mm[Hg]Tia Baugh PA-C Work Phone: 1(351) [phone]xdecs76-47-4215 14:36-0400Heart rate77 /minDean Valentin PA-C Work Phone: 1(726) [phone]ciqft46-39-1572 14:36-0400Respiratory rate16 /min Tia Baugh PA-C Work Phone: 1(987) [phone]ypvbu15-37-1284 14:36-9319NoL2% (BldA) [Mass fraction]97 %Tia Baugh PA-C Work Phone: 1(135) [phone]sxxsd24-12-4433 14:36-0400Systolic blood pressure 137 mm[Hg]Tia Baugh PA-C Work Phone: 1(850) [phone]xrvpt42-86-2334 11:06-0500Diastolic blood ebifwacy23 mm[Hg]Jef Sierra Jr., DPM Work Phone: 1(770) [phone]ijcyh07-94-3203 11:06-0500Heart rate99 /min Jef Sierra Jr., DPM Work Phone: 1(216) [phone]laphj66-05-3367 11:06-0500Systolic blood pressure 123 mm[Hg]Jef Sierra Jr., DPM Work Phone: 1(152) [phone]ieusf36-86-8285 10:49-0500Body lpryunophod49.2 [degF]Jef Mariela Jr., DPM Work Phone: 1([phone]sxzlk66-32-5731 11:06-0500Body zklsnrmbkty73.9 [degF]Jef Mariela Jr., DPM Work Phone: 1(393)[phone]mrxpv07-36-4620 11:06-0500Diastolic blood qubnocuk48 mm[Hg]Jef Mariela Jr., DPM Work Phone: 1(124)[phone]kryar89-97-6877 11:06-0500Heart rate89 /min Jef Mariela Jr., DPM Work Phone: 1(681)[phone]gloos65-64-2601 11:06-0500Systolic blood pressure 146 mm[Hg]Jef Mariela Jr., DPM Work Phone: 1(423)[phone]cvhgq10-17-8960 09:55-0500Diastolic blood sopucaat15 mm[Hg]Jef Mariela Jr., DPM Work Phone: 1(614)[phone]qzrfa31-27-3669 09:55-0500Heart rate89 /min Jef Mariela Jr., DPM Work Phone: 1(943)[phone]cdlai77-19-3976 09:55-0500Systolic blood pressure 154 mm[Hg]Jef Mariela Jr., DPM Work Phone: 1(951)[phone]xFilqbj67-83-4009 09:52-0500Body rhrbydkkiip98.59 [degF]Jef Mariela Jr., DPM Work Phone: 1(897)[phone]lsApvgeo85-23-1712 11:17-0500Body zfrxwdkvfyo05.7 [degF]Jef Mariela Jr., DPM Work Phone: 1(662)[phone]lVjvhff38-89-5832 11:17-0500Diastolic blood moqzfeao69 mm[Hg]Jef Mariela Jr., DPM Work Phone: 1(618)[phone]kyzBhbewq96-65-1731 11:17-0500Heart rate96 /min Jef Mariela Jr., DPM Work Phone: 1(221)[phone]cazVobuzt29-94-5762 11:17-0500Systolic blood pressure 157 mm[Hg]Jef Mariela Jr., DPM Work Phone: 1(889)[phone]utEdwipe40-55-2954 10:31-0500Body chunkjgmsqk26.4 [degF]Jef Mariela Jr., DPM Work Phone: 1(549)[phone]dApxbvb33-58-6704 10:31-0500Diastolic blood mm[Hg]Jef Mariela Jr., DPM Work Phone: 1(375)[phone]dYozwgp06-72-9097 10:31-0500Heart rate98 /min Jef Mariela Jr., DPM Work Phone: 1(189)[phone]kwBhkcvi11-20-9127 10:31-0500Systolic blood pressure 156 mm[Hg]Jef Mariela Jr., DPM Work Phone: 1(225)[phone]uYpuoal58-53-9336 15:58-0500Body rubcalrtxqe98.7 [degF]Jef Mariela Jr., DPM Work Phone: 1(200)[phone]veUxhceg12-65-2216 15:58-0500Diastolic blood flahzoht93 mm[Hg]Jef Mariela Jr., DPM Work Phone: 1(210)[phone]sltTxmull22-44-1714 15:58-0500Heart dptl039 /min Jef Mariela Jr., DPM Work Phone: 1(266)[phone]vlnUhjbaz67-46-3369 15:58-0500Systolic blood pressure 163 mm[Hg]Jef Mariela Jr., DPM Work Phone: 1(795)[phone]Cugsga48-75-4601 10:58-0500Body ppvzonkmgop82.7 [degF]Jef Mariela Jr., DPM Work Phone: 1(010)[phone]lvvEhohjb44-52-3647 10:58-0500Diastolic blood iboaanbx16 mm[Hg]Jef Mariela Jr., DPM Work Phone: 1(065)[phone]eIeykjf82-76-8754 10:58-0500Heart cuby686 /min Jef Mariela Jr., DPM Work Phone: 1(899)[phone]bqVqdmos52-71-7929 10:58-0500Systolic blood pressure 143 mm[Hg]Jef Mariela Jr., DPM Work Phone: 1(077)[phone]sleAtuaby32-00-6708 08:43-0500Body fouiekesrjk32.2 [degF]Jef Mariela Jr., DPM Work Phone: 1(683)[phone]tnXqnaoo40-22-3401 08:43-0500Diastolic blood bmynhxus09 mm[Hg]Jef Mariela Jr., DPM Work Phone: 1(992)[phone]svfLcdmcu84-53-4598 08:43-0500Heart rate99 /min Jef Mariela Jr., DPM Work Phone: 1(053)[phone]mZkofeq81-15-1313 08:43-0500Systolic blood pressure 156 mm[Hg]Jef Mariela Jr., DPM Work Phone: 1(772)[phone]sjnBsmnda63-19-4804 09:09-0500Body vepcynleaex32.7 [degF]Jef Mariela Jr., DPM Work Phone: 1(799)[phone]eibAoeytz55-56-8219 09:09-0500Diastolic blood kgztjoxi84 mm[Hg]Jef Mariela Jr., DPM Work Phone: 1(296)[phone]jymNncvrj12-20-6908 09:09-0500Heart rate83 /min Jef Mariela Jr., DPM Work Phone: 1(913)[phone]fyWpnvhv23-97-2618 09:09-0500Systolic blood pressure 149 mm[Hg]Jef Mariela Jr., DPM Work Phone: 1(767)[phone]fcyOitmzx29-00-7571 11:17-0400Body .1 cm Jef Sierra Jr., DPM Work Phone: 1(771)[phone]egcVezqlf31-61-0714 11:17-0400Body mass index (BMI) [Ratio]25.46 kg/h4GepoqawgJef Sierra Jr., DPM Work Phone: 1(652)[phone]lpoYlgtbw23-73-1644 11:17-0400Body .2 [degF]Jef Velasquezn Jr., DPM Work Phone: 1(120)[phone]wwzCmljlq56-99-1343 11:17-0400Body iviaey32.4 kg Jef Sierra Jr., DPM Work Phone: 1(779)[phone]pySnkcah19-57-0023 11:17-0400Diastolic blood qetqbfbw52 mm[Hg]Jef Sierra Jr., DPM Work Phone: 1(852)[phone]beyJxolfv81-38-9074 11:17-0400Heart cter246 /min Jef Sierra Jr., DPM Work Phone: 1(206)[phone]swJoyscd93-66-7968 11:17-0400Systolic blood pressure 144 mm[Hg]Jef Sierra Jr., DPM Work Phone: 1(192)[phone]aqpPjsode51-08-0291 08:11-0400Body .7 cm Jef Sierra Jr., DPM Work Phone: 1(271)[phone]peyAfwate69-31-1330 08:11-0400Body mass index (BMI) [Ratio]29.39 kg/e0BthtvuoxJef Sierra Jr., DPM Work Phone: 1(078)[phone]ijKbkugl89-77-7273 08:11-0400Body pxxtlygvvfz91.2 [degF]Jef Sierra Jr., DPM Work Phone: 1(014)[phone]rswGgroku12-55-1102 08:11-0400Body qwstmy20.4 kg Jef Sierra Jr., DPM Work Phone: 1(423)[phone]21RvibPljxhv07-58-4614 08:11-0400Diastolic blood pdmphhuy17 mm[Hg]Jef Sierra Jr., DPM Work Phone: 1(754)[phone]fCxnfnb91-35-3235 08:11-0400Heart rate82 /min Jef Sierra Jr., DPM Work Phone: 1(689)[phone]jkdOeaoro33-89-4848 08:11-0400Systolic blood pressure 133 mm[Hg]Jef Sierra Jr., DPM Work Phone: 1(512)[phone]ttdOhkccz28-77-6183 11:22-0400Diastolic blood snrouafk95 mm[Hg][address]08-17-2021 11:22-0400 Heart rate84 /[address]08-17-2021 11:22-0400 Respiratory rate16 /[address]08-17-2021 11:22-0400Systolic blood kycycysp997 mm[Hg][address]08-17-2021 09:15-0400Body umgiwvjguob49.9 [degF][address]08-10-2021 11:50-0400Body .1 cmFranck Mtz MD Work Phone: [facility]08-10-2021 11:50-0400Body mass index (BMI) [Ratio]25.96 kg/t1HbzvpwFranck Mtz MD Work Phone: [facility]08-10-2021 11:50-0400Body .76 kgFranck Mtz MD Work Phone: [facility]08-10-2021 11:50-0400 Diastolic blood howfhxfp28 mm[Hg]Franck Mtz MD Work Phone: [facility]08-10-2021 11:50-0400Heart aens420 /minJojon Mtz MD Work Phone: [facility]08-10-2021 11:50-0400Systolic blood psjfuyyq958 mm[Hg]Franck Mtz MD Work Phone: [facility]08-05-2021 13:31-0400 Diastolic blood ajhjmlft77 mm[Hg][address] 09-21-2020 13:31-0400Heart rate89 /[address] 09-21-2020 13:31-0400Respiratory rate16 /[address]08-05-2021 13:31-0400Systolic blood qcwidwvb821 mm[Hg][address]08-05-2021 11:36-0400Body bbakrzakqgf14.9 [degF][address]07-29-2021 14:39-0400Body fklywbwokzt23.39 [degF]Jef Sierra Jr., DPM Work Phone: 8(155)[phone]igpOaqcmg58-07-5594 14:39-0400Diastolic blood mm[Hg]Jef Sierra Jr., DPM Work Phone: 1(457)[phone]trpWmeave68-55-8732 14:39-0400Heart rate98 /min Jef Sierra Jr., DPM Work Phone: 1(505) [phone]0-845245XtitFwwwsj68-29-4418 14:39-0400Systolic blood pressure 145 mm[Hg]Jef Sierra Jr., DPM Work Phone: 1(182) [phone]-693785NgdnHbwiqw88-19-9946 09:34-0400Body ipwpuf612.1 Mariah Kaur MD Work Phone: [facility]07-28-2021 09:34-0400Body mass index (BMI) [Ratio]25.66 kg/m2Luis Miguel Kaur MD Work Phone: [facility]07-28-2021 09:34-0400Body weight 69.94 kgLuis Miguel Kaur MD Work Phone: 2(615)647-[address] [place], [place] 5531707-28-2021 09:34-0400Diastolic blood ggitkewx55 mm[Hg]Luis Miguel Kaur MD Work Phone: 1(969)157-[address] [place], [place] 5531707-28-2021 09:34-0400Heart rate89 /minLuis Miguel Kaur MD Work Phone: 1(255)046-[address] [place], [place] 5531707-28-2021 09:34-0400Systolic blood tkeqivsi902 mm[Hg]Luis Miguel Kaur MD Work Phone: [facility]03-02-2021 08:16-0500Body height 153.7 cmJef Sierra Jr., DPM Work Phone: 1(654) [phone]40DyccYcwtjk76-34-6739 08:16-0500Body mass index (BMI) [Ratio]29.39 kg/z0LxkkiflbJef Sierra Jr., DPM Work Phone: 1(663) [phone]xxiDlsqlh43-60-2647 08:16-0500Body uiqdch58.4 kg Jef Sierra Jr., DPM Work Phone: 1(437)[phone]krlZfvlel71-63-8984 08:16-0500Diastolic blood xgyzbadg86 mm[Hg]Jef Sierra Jr., DPM Work Phone: 1(533) [phone]1-250162VgbiSjjrpo36-21-0546 08:16-0500Systolic blood pressure 136 mm[Hg]Jef Sierra Jr., DPM Work Phone: 1(722) [phone]28OstqVkqvdb54-55-7858 09:31-0400BMI (Body Mass Index) 25.29 kg/m9GfwxbvtJonathan OlmosNifjdsTgnjUgupar70-53-0406 09:31-0400Body Jnjdagzsled78.4 [degF]Jonathan MprcufYahoAqsxkx99-29-6924 09:31-0400BP Dgnndsqfe23 mm[Hg]Jonathan BgpkodNcvhOsbunw53-31-4330 09:31-0400BP Hlmopruq940 mm[Hg]Jonathan Jax FyvdWxgpfu13-18-8568 09:3044Jacycy303.1 cmbessy BwdobgQzndSzfjvr64-45-9411 09:0Pulse (Heart Rate)102 /[place] DacbhhQshiVqlrpm73-36-3401 09:310400Pulse Iclnzkwp302 %Jonathan AagsxtVrcvLtjewp02-24-6906 09:31-0400 Respiratory Rate16 /[place] [address]-12-2019 09:2826Taskdb06.95 kgdanielMetroHealth Parma Medical CenterKjdpfcIgmnBenqbw00-91-9697 14:05-0500BMI (Body Mass Index)25.07 kg/m2 [facility] Work Phone: 1(557) 750-217211-15-2018 14:05-0500BP Ygryeydir96 mm[Hg][facility] Work Phone: 1(575) 713-222511-15-2018 14:05-0500BP Nghrcuxr256 mm[Hg][facility] Work Phone: 1(443) 467-106311-15-2018 14:05-0013Zhkhif932.4 cmTodd [facility] Work Phone: 1(533) 266-679111-15-2018 14:05-0500Pulse (Heart Rate)108 /[facility] Work Phone: 1(317) 840-139411-15-2018 14:05-6298Bngdbf76.4 kgRiverview Health Institute Work Phone: 1(408) 145-159202-19-2018 12:24-0500BP Iljuzzmag83 mm[Hg]Reji Miramontes NyvkKftsio37-85-1228 12:24-0500BP Lymqdpsm431 mm[Hg]WCarrol [facility] 04-07-2017 12:240500Pulse (Heart Rate)98 /minW. YolysrVeueZsdfkx50-67-4639 12:-0500BMI (Body Mass Index)26.49 kg/m2W. IwfxxhOnihVlypdi12-38-2278 12:22-9033Bdluke784.1 cmW. MftjbgOgkxOvuzir21-63-0414 12:-0500Respiratory Rate 16 /minW. ExdbxvFhxgVyxedm16-60-3206 12:5847Xlvjvb43.21 kgW. [facility] Encounters Encounter DateEncounter TypeCare ProviderFacilityStart: 12-13-2024 End: 85-94-8877OprbxrYedgwrj Mariam [facility] MedinceComment on above: Gastroesophageal reflux disease without esophagitis (Primary Dx); Cough, unspecified type; Acquired hypothyroidismStart: 12-07-2024 End: 67-34-9038Dgaqljfjo encounterJay Chávez NP Work Phone: [facility] MedinceStart: 11-30-2024 End: 56-01-6814Ydzapahtj encounterJay Chávez INPATIENT CODER Work Phone: [facility] MedinceStart: 11-23-2024 End: 01-37-1749Cfrstsoaj encounterMahin Bernal MD Work Phone: [facility] MedinceStart: 11-22-2024 End: 87-33-9958Ydbleejxi encounterJay Chávez INPATIENT CODER Work Phone: [facility] MedinceStart: 09-27-2024 End: 26-12-0598Ovmaid Gomez Whitfield DO Work Phone: [facility] EyeStart: 09-27-2024 End: 61-07-4364Mkabro flowsGerman Whitfield DO Work Phone: [facility] EyeStart: 09-27-2024 End: 64-66-2287ydhodylkvuYAKOFKMXJudith Londono AvailableStart: 08-27-2024 End: 32-76-5403Ybzqij [facility] Work Phone: noms [facility] DERMStart: 08-27-2024 End: 81-08-2267Xkveav [facility] Work Phone: noms [facility] DERMStart: 08-27-2024 End: 24-50-7427Uxhvbv [facility] Work Phone: noms External Department UnsolicitedStart: 08-27-2024 End: 95-72-2704Owusfo outpatient visit 25 [facility] Work Phone: noms S[facility] DERMComment on above:Other atopic dermatitis (Primary Dx); Traumatic ulcer of left foot, unspecified ulcer stage (HCC); ImpetigoStart: 08-27-2024 End: 73-34-0110ncylpqamuyGEDOU NORTHEIMNot AvailableStart: 08-10-2024 End: 87-25-6853Ezyymivqr Result EncounterGeneric External Data ProviderNOMS External Department UnsolicitedStart: 08-10-2024 End: 91-60-6238Pgjctvrae Result EncounterGeneric External Data ProviderNOMS External Department UnsolicitedStart: 06-28-2024 End: 71-72-9321onntqbgdoqDLYHGWEKJudith Londono AvailableStart: 04-16-2024 End: 99-19-1264Ehuwqeqgr department patient visitJohn ParenteFacility:FTMCStart: 33-66-5025mdmgllttliUgwr L SchwabFacility:FT BellevueStart: 11-21-2023 End: 47-52-6032mdlvddcrxdXjae L SchwabFacility:FT BellevueStart: 10-24-2023 End: 44-92-2231cazpykihoyKdax L SchwabFacility:FT BellevueStart: 10-10-2023 ambulatoryJodi SchwabFacility:FT BellevueStart: 05-27-2023 End: 21-18-0767nxrzknxrnxWDXY ALAHMADFacility:FTMCStart: 71-45-8075Vtogrxwma Result EncounterRufus Perez MD Work Phone: noms External Department UnsolicitedStart: 03-29-2023 Clinisync Result EncounterRufus Perez MD Work Phone: noms External Department UnsolicitedStart: 11-22-2022 End: 05-22-5744tfcqbqibpxRFWMDW E [facility]tart: 04-02-2022 End: 25-90-7284pxtldccyxcVWV VAISHALIUniversity Hospitals Conneaut Medical Centertart: 04-02-2022 End: 64-94-3950Skcmdnrbco hospital visit by physicianStv [facility] RadiologyComment on above:S/P cervical spinal fusionStart: 12-04-2021 End: 32-90-8696Cspksykuwr hospital visit by physicianStv C-Arm [address] [place] [address] RadiologyComment on above:Atlantoaxial instability; S/P cervical spinal fusionStart: 11-22-2021 End: 49-80-0568eaicokbacoAatwnn BerryFacility:[facility] Start: 11-22-2021 End: 82-31-6179ufufuowcutDZ Daniel Berry Work Phone: [facility] Work Phone: Start: 11-22-2021 End: 04-98-1667Uczoikfj ReferredII Rufus Perez Work Phone: [facility] CampusStart: 08-20-2021 End: 36-14-4892Mfumskptwf and management of inpatientDALUN TANGFacility:[facility] Start: 07-14-2021 End: 35-19-2305Clfcxwxspf and management of inpatientChbarron Lucero DO Work Phone: stvZ CAR 3Start: 07-13-2021 End: 14-21-8018Ydzgcxsxg department patient visitAnthony Villarreal MD Work Phone: [facility] EDComment on above:COVID-19 (Primary Dx); Pneumonia of left lower lobe due to infectious organism; Hypokalemia; Hypomagnesemia; long term care administrator (current) use of antibioticsStart: 06-28-2021 End: 08-96-8214Dhnwjbebfs and management of inpatientAlexameryl Martinez MD Work Phone: stVZ 1C STEP DOWNStart: 06-28-2021 End: 57-30-0473Ozijjavob department patient visitChris Boothe MD Work Phone: [facility] EDComment on above:Non- intractable vomiting with nausea, unspecified vomiting type (Primary Dx); Altered mental status, unspecified altered mental status type; Leukocytosis, unspecified typeStart: 05-18-2021 End: 16-22-7311Xekgzfcnlw and management of inpatientAMBOhioHealth Hardin Memorial Hospitaltart: 05-18-2021 End: 07-36-8706Dygzaamti department patient visitCHARTriHealth Start: 15-92-0114ikucwkzicgHPPKBTF P HOUSEFacility:[facility]tart: 46-66-3118cgaxpbbowjBGZJWY MATURUFacility:[facility]tart: 05-11-2021 End: 50-68-5441hiyiozwcmyDmpyjy Mmp-Nd5Qyhoxhll [facility] Start: 05-11-2021 End: 52-19-3209Jwfpirk encounter procedureSdwanye Weldon DO Work Phone: Infusion [facility] Outpatient CareComment on above: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) Start: 81-55-6202nzvsfdekynMTBYRFK P HOUSEFacility:[facility]tart: 05-01-2021 End: 14-93-8213xiljgcijbdHBZSGGHFerry County Memorial Hospital Urgent CareStart: 05-01-2021 End: 16-82-7009Rwflxx outpatient visit 15 minutesTia Baugh PA-C Work Phone: [facility] BucyrusComment on above:Partial thickness burn of single finger of right hand excluding thumb, initial encounter (Primary Dx); Wound infection; Laceration of right thumb, initial encounterStart: 15-34-7593rjrupmveznXZERWLH P HOUSEFacility:[facility]tart: 04-17-2021 End: 77-24-6993feqsdrqkekGYHYAPVE DILLON JR.[facility] AmbulatoryStart: 04-17-2021 End: 83-64-2856Fdkqmp outpatient visit 15 Magaly Sierra DPM Work Phone: [facility] PodiatryComment on above: 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) (Primary Dx)Start: 42-73-2237qinqdeppmySDQIWAF P HOUSEFacility:[facility]tart: 38-65-4392snrkhkcwudBGHSQIC P HOUSEFacility:[facility]tart: 04-06-2021 End: 32-35-1886Qdmkxdsspy and management of inpatientPCP PCP UNKNOWN~[phone] PHYSICIAN PHYSICIANMount Cape Fear [facility] Hospitaltart: 04-06-2021 End: 21-41-9793Cjsqsevhhf and management of inpatientSEAN SLIMANMount Cape Fear [facility] Hospitaltart: 50-12-1103syetxithrmIXAWMJS P HOUSEFacility:[facility]tart: 03-27-2021 End: 09-93-6154rvhdjzazcvMDQPNWGQ DILLON JR.[facility] AmbulatoryStart: 03-27-2021 End: 66-55-7660Gxukmh outpatient visit 15 Magaly Sierra DPM Work Phone: [facility] PodiatryComment on above: 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) (Primary Dx)Start: 22-11-3324akysmfufahIQENZH BERGMANFacility:[facility]tart: 03-06-2021 End: 69-74-4004efocawlffvFPZDLMLM DILLON JR.[facility] AmbulatoryStart: 67-10-1228twkyrtbvgeRILXHFF P HOUSEFacility:[facility]tart: 02-21-2021 ambulatoryCHARLES P HOUSEFacility:[facility]tart: 02-20-2021 End: 28-22-4260uuawvzyxjrQFKILLHJ DILLON JR.[facility] AmbulatoryStart: 02-20-2021 End: 72-72-9478Auvlppq encounter procedureJeremiah Mariela DPM Work Phone: [facility] PodiatryComment on above: 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)Start: 14-86-6573xqbrmofrpdNQVBRJN P HOUSEFacility:[facility]art: 02-14-2021 ambulatoryCHARLES P HOUSEFacility:[facility]tart: 71-65-3855uvxenaricl NERI P HOUSEFacility:[facility]tart: 82-87-5943oycgzywqzsISWRFUC P HOUSEFacility:[facility]tart: 2021 End: 87-63-5083kqqqgfylviYVHNATZV DILLON JR.[facility] AmbulatoryStart: 2021 End: 22-93-6045Pfwarig encounter procedureJeremmichelle Velasquezn DPM Work Phone: [facility] PodiatryComment on above: Ulcer of left foot with fat layer exposed (HCC) (Primary Dx)Start: 01-30-2021 End: 75-41-1319ueuhvbxovuSEZFHOLR DILLON JR.[facility] AmbulatoryStart: 01-30-2021 End: 10-69-5805Sdvgmlv encounter procedureJekavon Velasquezn DPM Work Phone: [facility] PodiatryComment on above: Ulcer of left foot with fat layer exposed (HCC) (Primary Dx)Start: 01-24-2021 End: 62-80-2045wvbrpfctbqMVQKYFEY DILLON JR.[facility] AmbulatoryStart: 01-24-2021 End: 84-08-6232Rtgdver encounter procedureJeremmichelle Howelon DPM Work Phone: [facility] PodiatryComment on above: Ulcer of left foot with fat layer exposed (HCC) (Primary Dx)Start: 01-23-2021 ambulatoryCHAALVINO P HOUSEFacility:[facility]art: 01-16-2021 End: 91-36-2463vohadghzxyXPINBFYP [facility] JR.[facility]: 01-16-2021 End: 90-73-5929Idrvyvp encounter procedureJef Sierra DPM Work Phone: [facility] PodiatryComment on above: 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) (Primary Dx)Start: 67-38-8630tjqqxejmqbKVSNQPW P HOUSEFacility:[facility]art: 01-09-2021 End: 34-41-4596ebbhyvglsqBVDTGNHR DILLON JR.[facility]Start: 01-09-2021 End: 41-18-1046Ngzlnpi encounter procedureJef Sierra DPM Work Phone: [facility] PodiatryComment on above: Ulcer of left foot with fat layer exposed (HCC) (Primary Dx)Start: 01-02-2021 End: 26-23-1381ouaofmhjorAYJCJOYI [facility]ILLON JR.[facility] HealthStart: 01-02-2021 End: 68-63-3764Coqjdne encounter procedureJef Sierra DPM Work Phone: [facility] PodiatryComment on above: Non-pressure chronic ulcer of other part of left foot with fat layer exposed (HCC) (Primary Dx); Ulcer of left foot with fat layer exposed (HCC)Start: 01-31-7081qpnrwbofrc CHARLES P HOUSEFacility:[facility]tart: 80-69-6677wgarjhudqlWFJKMGO P HOUSEFacility:[facility]tart: 90-55-1567jzqvmvbhagPMQANZMOJ H DAVIDORF Facility:[facility]art: 80-23-8372qstijdkemoQNYB SELF Facility:[facility]art: 12-19-2020 End: 25-28-2340lsvrjhjshzQJPXPFMW [facility]ILLON [facility] AmbulatoryStart: 12-19-2020 End: 74-35-8420Ecffppk encounter procedureJeremiah Mariela DPM Work Phone: [facility] Group PodiatryComment on above: Ulcer of left foot with fat layer exposed (HCC) (Primary Dx)Start: 12-13-2020 Everardo BUSBYFacility:[facility]tart: 65-21-6302ttfwydkdzf SHARON ARGUELLONORTHSHORE PSYCH[facility]ATRIC [facility]OSPITALFacility:[facility]tart: 70-47-4112Hkjtpd Only Jef Sierra DPM Work Phone: [facility] PodiatryStart: 12-05-2020 End: 25-32-5834mcadzwghmtFGWAIGPE DILLON JR.[facility] AmbulatoryStart: 11-16-2020 End: 32-48-3206yvkbxfhssyLQFOQLJM DILLON JR.[facility] AmbulatoryStart: 10-17-2020 End: 80-30-4141zhjhqvckjlVBUZUUTK DILLON JR.[facility] AmbulatoryStart: 10-17-2020 End: 24-46-6985Thuzyt outpatient visit 15 minutesJef Sierra DPM Work Phone: [facility] PodiatryComment on above: Chronic ulcer of great toe of left foot, unspecified ulcer stage (HCC) (Primary Dx)Start: 10-10-2020 End: 49-89-1688Eopndg outpatient visit 25 Liz Matos MD Work Phone: [facility]: Primary open angle glaucoma (POAG) of right eye, severe stage (Primary Dx); Primary open angle glaucoma (POAG) of left eye, severe stage; Diabetic macular edema; PseudophakiaStart: 10-03-2020 End: 84-57-9251uqnhpthswlTdjewl Mmp-Cv5Xpjtalmf [facility] Start: 10-03-2020 End: 99-82-4198Qdlqnjd encounter procedureFranck Mtz MD Work Phone: [facility]patient CareComment on above: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) Start: 09-26-2020 End: 88-37-2412Kfpcxzgfoj hospital visit by physicianFranck Mtz MD Work Phone: [facility]patient CareComment on above:ArrivedStart: 09-26-2020 End: 77-17-7696Xxbudh outpatient visit 25 minutesFranck Mtz MD Work Phone: [facility] CareComment on above: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) Start: 09-21-2020 End: 62-80-9542nwwgcbeawbCybjzu Mmp-Cg7Itxwstgz [facility] Start: 09-21-2020 End: 90-59-1905Jlnpsrx encounter procedureCharadrianna Purcell DO Work Phone: [facility] CareComment on above: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) Start: 09-14-2020 End: 86-66-9911cqfzgvgbijMXYMHFJS DILLON [facility] AmbulatoryStart: 09-14-2020 End: 02-33-9421Ivlyjo outpatient visit 15 Magaly Sierra DPM Work Phone: [facility] PodiatryComment on above: Great toe pain, left (Primary Dx); Foot abscess, leftStart: 09-13-2020 End: 10-57-6864Njeig Teodoro Sierra DPM Work Phone: [facility] PodiatryComment on above: Asthma, unspecified asthma severity, unspecified whether complicated, unspecified whether persistent; Chronic ulcer of great toe of left foot, unspecified ulcer stage ([facility]); Closed displaced fracture of first metatarsal bone [...] involvement without evidenceof necrosis (HCC)Start: 09-13-2020 End: 55-26-2566Bhxvzl outpatient visit 25 minutesLuis Miguel Kaur MD Work Phone: [facility] EndocrinologyComment on above:Type 2 diabetes mellitus with diabetic polyneuropathy, with long-term current use of insulin (Primary Dx); Acquired hypothyroidismStart: 56-50-6638feexzsmjnpABPGSYKN DILLON JRCincinnati [facility] AmbulatoryStart: 04-25-2020 End: 34-93-4839Gztdbs [facility]alsanchez Chamberlain Work Phone: [facility] CARLOS ALBERTO [facility] Start: 02-17-2020 End: 90-58-4282Hjyhofpfty hospital visit by physicianSr [facility] Start: 01-27-2020 End: 53-12-5761Tasvvwc encounter procedureCHARLES NORTH ROYALTONFacility:G7Oerrx: 12-22-2019 End: 71-93-9905Fimcygu encounter procedureCHARCEDAR CITY HOSPITALFacility:E0Kmivv: 12-20-2019 End: 25-56-4987Jexgodezr department patient visitCHARADRIANNA Serrano [facility]ertart: 12-20-2019 End: 48-38-6736Ehdyvzali department patient visitGarsugey Lubin Work Phone: [facility] Emergency DepartmentComment on above:Avulsion of fingernail, initial encounter (Primary Dx)Start: 05-29-2018 End: 20-29-1137Amepkuovc department patient visitDobessy Camara Work Phone: [facility] Emergency DepartmentComment on above:Cellulitis (Primary Dx)Start: 01-20-2018 End: 25-96-2854Ctsrvtp encounter procedureCrystal [facility] EndocrinologyComment on above:Type 2 diabetes mellitus without complication, with long-term current use of insulinStart: 01-06-2018 End: 08-81-3177Wwhkjlp encounterJoLone Peak Hospital RheumatologyComment on above:AppointmentStart: 01-05-2018 End: 43-94-3946Yjambpy encounterNicMcLaren Lapeer Region EndocrinologyComment on above:Type 2 diabetes mellitus without complication, with long-term current use of insulin (Primary Dx)Start: 01-01-2018 End: 33-08-8480Aqoskh outpatient visit 25 minutesTodd Sallie Kaur Work Phone: [facility] EndocrinologyComment on above:Type 2 diabetes mellitus with diabetic polyneuropathy, without long-term current use of insulin (Primary Dx); Mixed hyperlipidemiaStart: 01-01-2018 End: 24-92-4162Kdlsejc encounterHistorical ProviderNeurology Madie Velazquez Start: 53-16-4456Wgnekir encounter Janelle GilliamFacility:[place] Start: 85-30-6806Rfcmsrv encounter Janelle Gonzalezcility:[place] Start: 11-25-2017 End: 35-41-4860Lglxafw encounterPili Gilliam Work Phone: [facility]tart: 83-39-2003Ifpseos encounter procedurePili Gonzalezcility:[place]Start: 08-22-2017 End: 78-21-5739Geabkdn encounter Jose Mcdonald Facility:[place]Start: 39-44-2949Ddkuucr encounter procedureJackyernst Graves [facility] CenterFac[facility]:[place]Start: 93-64-6939Tojzlsg encounter procedureMartha YanFacility:[facility]: 06-04-2017 End: 40-35-5106Ubtrorhym department patient visitAriel Franklin [place]: 04-11-2017 End: 49-26-7956JcemsloekhLskvqdp Courtney Inwood Work Phone: [facility]: 39-14-1635Ialckq/outpatient visit, new, level 3Bribhavik Gilliam Work Phone: [facility] PhysiciansStart: 03-28-2017 End: 73-15-2430SkhthbuvjmVvylzAj Gilliam Work Phone: [facility]: 03-14-2017 End: 65-59-7129LlcvwbnwaaLmpqu Joseph Zimmerman Work Phone: [facility] Procedures DateProcedureProcedure DetailPerforming ClinicianStart: 02-04-4747Pwgkum field xm uni/bi w/interp extended examJojuliette Whitfield DO Work Phone: Start: 09-27-2024 End: 49-79-0327QhnqvSaint Joseph [facility]&eval 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 estab ptPrimary open angle glaucoma (POAG) of both eyes, moderate stageSkylar Whitfield DO Work Phone: comment on above:Primary open angle glaucoma (POAG) of both eyes, moderate stage (Primary Dx); 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 mellitus (HCC); Left posterior capsular opacification; Dry eyesStart: 32-12-8513Sqy bact xcpt urine blood/stool aerobic isolHeart Hospital of Austin Work Phone: Start: 73-84-6524BGKDOZYozfn [place] PA Work Phone: Start: 98-07-3828ZWVJAVITO BLOOD PRESSUREGeneric External Data ProviderStart: 16-18-8530NT FOOT SAMANTHA MIN 3 VIEWSGeneric External Data ProviderStart: 07-61-4383Jjuljgxijflr ophthalmic imaging optic nerve Skylar Whitfield DO Work Phone: Start: 06-28-2024 End: 36-81-6226ByzkgSaint Joseph [facility]&eval compre new pt 1/> vstPrimary open angle glaucoma (POAG) of both eyes, moderate stageSkylar Whitfield DO Work Phone: comment on above:Primary open angle glaucoma (POAG) of both eyes, moderate stage (Primary Dx); 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 mellitus (CMS/HCC); Left posterior capsular opacification; Dry eyesStart: 55-40-2749ITJO CBC W/ AUTO DIFFRufus Perez MD Work Phone: Start: 37-96-4707Pktjs spine cervical 4 or 5 viewsAlisia Cevallos DO Work Phone: Start: 48-23-4048Logvq spine cervical 2 or 3 views Alie Loza ACADEMIC PROGRAM SPECIALIST - HAIR MACHINE OPERATOR Work Phone: Start: 49-62-9720Bagrfnzz screenDALUN TANGComment on above:Performed By: #### [id number] #### [facility] [address] [place] [address], USAStart: 66-41-1607Vehxblt blood reagent stripSjosué Padron MD Work Phone: Start: 08-10-2021 End: 04-34-2312Fifim of magnesiumSwelida Vega MD Work Phone: Start: 80-12-1880TMSDD METABOLIC PANEL W/ REFLEX TO MG FOR LOW KSwathi Gary VIVEROS Work Phone: Start: 83-17-5453Ndsgtqr blood reagent stripSjosué Padron MD Work Phone: Start: 12-40-0619Imocvbq blood reagent stripSjosué Padron MD Work Phone: Start: 08-09-2021 End: 19-46-5454Ajrcwje blood reagent stripSjosué Padron MD Work Phone: Start: 51-57-2802Eqtxusm blood reagent stripSjosué Padron MD Work Phone: Start: 49-66-6780Cuczats blood reagent stripSjosué Padron MD Work Phone: Start: 30-09-3984Izegn count complete auto&auto difrntl wbcSrinivas Vito VIVEROS Work Phone: Start: 35-35-6205Srwalfs blood reagent stripSjosué Padron MD Work Phone: Start: 65-56-9161DPRAC METABOLIC PANEL W/ REFLEX TO MG FOR LOW KSwathi Gary VIVEROS Work Phone: Start: 76-33-2057Ppcgppo blood reagent stripSjosué Padron MD Work Phone: Start: 64-40-9277Avaguwo blood reagent stripSjosué Padron MD Work Phone: Start: 82-95-1635Rwfagju blood reagent stripSjosué Padron MD Work Phone: Start: 82-81-8258Gtjyu of thyroid stimulating hormone tshGuy Ochoa MD Work Phone: Start: 93-82-7823Fmdmq spine cervical 2 or 3 views Kam Loera ACADEMIC PROGRAM SPECIALIST - HAIR MACHINE OPERATOR Work Phone: Start: 42-87-1903Crqtyan blood reagent stripSjosué Padron MD Work Phone: Start: 27-60-3808Aav routine ecg w/least 12 lds i&r Irais Moore MD Work Phone: Start: 91-55-5291Dubwmtl blood reagent stripSjosué Padron MD Work Phone: Start: 18-62-1763Sobzwae blood reagent stripSjosué Padron MD Work Phone: Start: 63-57-9671Ouemmqd blood reagent stripSjosué Padron MD Work Phone: Start: 16-60-6446Eavaixh blood reagent stripSjosué Padron MD Work Phone: Start: 60-21-0271Ithfaxj blood reagent stripSjosué Padron MD Work Phone: Start: 18-15-0933Repoiol blood reagent stripSjosué Padron MD Work Phone: Start: 72-57-6615Fwvqlci blood reagent stripSjosué Padron MD Work Phone: Start: 42-48-8381Agjhejf blood reagent stripSjosué Padron MD Work Phone: Start: 08-06-2021 End: 05-81-2061Onxcehs blood reagent stripSjosué Padron MD Work Phone: Start: 44-75-5688URANW METABOLIC PANEL W/ REFLEX TO MG FOR LOW LEEonasri Coyle MD Work Phone: Start: 08-06-2021 End: 09-11-0426Cziwa count complete auto&auto difrntl wbcSkylar Coyle MD Work Phone: Start: 75-56-4710Rsekaio blood reagent stripSjosué Padron MD Work Phone: Start: 30-94-0703Jofzzyy blood reagent stripSjosué Padron MD Work Phone: Start: 16-98-5970Wvznyti blood reagent stripSjosué Padron MD Work Phone: Start: 17-09-0778RLZCFZRB BLOOD GAS, POCJeff Willoughby MD Work Phone: Start: 08-05-2021 End: 84-26-0403Ojywy of magnesiumSkylar Coyle MD Work Phone: Start: 67-98-1020LVQVX METABOLIC PANEL W/ REFLEX TO MG FOR LOW Geovanna Coyle MD Work Phone: Start: 89-27-5164Ayucpbl blood reagent stripJeff Willoughby MD Work Phone: Start: 90-72-9440Bihkimg blood reagent stripJeff Willoughby MD Work Phone: Start: 45-10-6713Lrsxyhs blood reagent stripJeff Willoughby MD Work Phone: Start: 45-04-0907Llyexix blood reagent stripJeff Willoughby MD Work Phone: Start: 30-30-1248Xrvgf of lipaseJojuliette Coyle MD Work Phone: Start: 70-80-8867VQUDI METABOLIC PANEL W/ REFLEX TO MG FOR LOW KJonasri Sallie Coyle MD Work Phone: Start: 05-69-0046Bwdfobu blood reagent Carley Willoughby MD Work Phone: Start: 79-66-7043Mgfcwyg blood reagent Carley Willoughby MD Work Phone: Start: 41-60-4471Cqjadjv blood reagent Carley Willoughby MD Work Phone: Start: 20-52-2783Wilckwk blood reagent Carley Willoughby MD Work Phone: Start: 02-83-3574Mqswtzc blood reagent Carley Wliloughby MD Work Phone: Start: 28-32-1565PAHFV METABOLIC PANEL W/ REFLEX TO MG FOR LOW Cassiusbhavik Coyle MD Work Phone: Start: 29-56-7432DRTNBOHP BLOOD GAS, POCJeff Willoughby MD Work Phone: Start: 08-03-2021 End: 17-24-0132Wznk bld gluc mntr dev cleared fda spec home useJeff Willoughby MD Work Phone: Start: 63-58-9241Dkgmvko blood reagent Carley Willoughby MD Work Phone: Start: 64-39-9708Hgiqupx blood reagent Carley Willoughby MD Work Phone: Start: 50-83-9431Gmnvcpi blood reagent Carley Willoughby MD Work Phone: Start: 20-77-1271Ktjxsdf blood reagent Carley Willoughby MD Work Phone: Start: 26-26-6422Htrpwnj blood reagent Carley Willoughby MD Work Phone: Start: 65-83-5819Anvfmlg blood reagent Carley Willoughby MD Work Phone: Start: 01-49-0179FMNOOFED BLOOD GAS, POCJeff Willoughby MD Work Phone: Start: 08-02-2021 End: 36-71-6755Fvlmj of Sandie Coyle MD Work Phone: Start: 61-11-3792GLEFO METABOLIC PANEL W/ REFLEX TO MG FOR LOW KJonasri Coyle MD Work Phone: Start: 75-60-9810Rtfxvwt blood reagent Carley Willoughby MD Work Phone: Start: 23-64-3394Dtsoadk blood reagent Carley Willoughby MD Work Phone: Start: 22-38-7090Mompqfj blood reagent Carley Willoughby MD Work Phone: Start: 08-01-2021 End: 92-96-3539Obmdy of Sandie Coyle MD Work Phone: Start: 49-70-6835BBLJC METABOLIC PANEL W/ REFLEX TO MG FOR LOW LEEonasri Coyle MD Work Phone: Start: 17-43-0349Tjplfks blood reagent Carley Willoughby MD Work Phone: Start: 66-20-2674Hmuvs count hemoglobinSkylar Coyle MD Work Phone: Start: 66-50-4821Umbzkpf blood reagent Carley Willoughby MD Work Phone: Start: 07-31-2021 End: 77-80-8897Eextabs blood reagent Carley Willoughby MD Work Phone: Start: 07-31-2021 End: 60-46-6238Odkgc of Sandie Coyle MD Work Phone: Start: 11-63-2436NHCVW METABOLIC PANEL W/ REFLEX TO MG FOR LOW Geovanna Coyle MD Work Phone: Start: 39-55-8306Eyqqlrl blood reagent stripJeff Willoughby MD Work Phone: Start: 07-30-2021 End: 49-94-0771Awmwo count Radha Coyle MD Work Phone: Start: 85-80-8217Itnebsi blood reagent stripJeff Willoughby MD Work Phone: Start: 78-07-7041Cytnzeth screenChristopher Hauger DO Work Phone: Start: 07-30-2021 End: 25-73-8517BBTNYAXTHUHIfhxhsll Erna Santiago MD Work Phone: Start: 86-69-2249TEIAU METABOLIC PANEL W/ REFLEX TO MG FOR LOW Geovanna Coyle MD Work Phone: Start: 97-39-9233Bdpec count complete auto&auto difrntl wbcSkylar Coyle MD Work Phone: Start: 07-73-4916NQXAPCAN BLOOD GAS, POCJeff Willoughby MD Work Phone: Start: 50-30-5095Yqhig count Lonnie Moore MD Work Phone: Start: 07-29-2021 End: 65-58-2550Ewwwczcovqc of packed red blood cellsTete Melgar MD Work Phone: Start: 77-53-4670Pybpn count Radha Coyle MD Work Phone: Start: 12-69-4276Ecjwsav blood reagent stripJeff Willoughby MD Work Phone: Start: 11-05-1897Qryts typing serologic Wil Melgar MD Work Phone: Start: 54-46-7822Urdjizl blood reagent stripJeff Willoughby MD Work Phone: Start: 34-14-8819PYYGB METABOLIC PANEL W/ REFLEX TO MG FOR LOW Geovanna Coyle MD Work Phone: Start: 07-29-2021 End: 04-43-7614Qccny count complete auto&auto difrntl wbcSkylar Coyle MD Work Phone: Start: 54-66-3191MYHINGVX BLOOD GAS, Adonay Willoughby MD Work Phone: Start: 59-35-5275Jibehku blood reagent Carley Willoughby MD Work Phone: Start: 07-28-2021 End: 86-38-2583Pnqmzsg Nannette Melgar MD Work Phone: Start: 23-37-6141Hybysxk blood reagent Carley Willoughby MD Work Phone: Start: 20-61-7143Yeyblao blood reagent Carley Willoughby MD Work Phone: Start: 71-63-1537DSCHH METABOLIC PANEL W/ REFLEX TO MG FOR LOW Geovanna Coyle MD Work Phone: Start: 09-06-1152Qshxg count complete auto&auto difrntl wbcSkylar Coyle MD Work Phone: Start: 17-42-6399FCIDRNOO BLOOD GAS, POCJeff Willoughby MD Work Phone: Start: 92-78-5583Jbqq bld gluc mntr dev cleared fda spec home useJeff Willoughby MD Work Phone: Start: 07-27-2021 End: 88-10-8843Vpalh count hemoglobinSkylar Coyle MD Work Phone: Start: 88-98-8165Lejzvyv blood reagent Carley Willoughby MD Work Phone: start: 50-25-2857Zepcivc blood reagent stripJeff Willoughby MD Work Phone: Start: 07-27-2021 End: 54-04-8541Igfckuh Nannette Melgar MD Work Phone: Start: 61-35-1587QDMYJ METABOLIC PANEL W/ REFLEX TO MG FOR LOW Geovanna Coyle MD Work Phone: Start: 59-02-0198Zptro count complete auto&auto difrntl wbcSkylar Coyle MD Work Phone: Start: 02-77-9780NMGFUYCI BLOOD GAS, POCJeff Willoughby MD Work Phone: Start: 07-27-2021 End: 22-45-3150Mphj bld gluc mntr dev cleared fda spec home useJeff Willoughby MD Work Phone: Start: 04-97-3541Pumwnox blood reagent stripJeff Willoughby MD Work Phone: Start: 07-00-1781Ofymxfi blood reagent stripJeff Willoughby MD Work Phone: Start: 20-93-8789Jvlax count hemoglobinSkylar Coyle MD Work Phone: Start: 02-32-5663Zua spinal canal cervical w/o & w/contr Vaishali Page MD Work Phone: Start: 23-62-5718Lcsiwkz blood reagent stripJeff Willoughby MD Work Phone: Start: 69-58-8452Clntskmuch exam chest single view Missy Moore MD Work Phone: Start: 89-48-5177Tvpygam blood reagent stripJeff Willoughby MD Work Phone: Start: 26-17-3925VDPSZWTHBFVefvyvpp M Grischkan MD Work Phone: Start: 78-23-7996Wvbxrsr blood reagent stripJeff Willoughby MD Work Phone: Start: 07-26-2021 End: 36-83-0138Rggyx of magnesiumJohnny Robledo MD Work Phone: Start: 82-64-9182NMHXJ METABOLIC PANEL W/ REFLEX TO MG FOR LOW LEEonasri Coyle MD Work Phone: Start: 32-10-7432SFUIKZQX BLOOD GAS, POCJeff Willoughby MD Work Phone: Start: 54-19-8779Hjjaz count hemoglobinMissy Moore MD Work Phone: Start: 07-25-2021 End: 44-34-9728Dncyf of lactateStephanie Stacy DO Work Phone: Start: 43-19-2225BQT REPORTEduardo Stas Hamm MD Work Phone: Start: 07-25-2021 End: 25-94-5582Jxacf count hemoglobinMissy Moore MD Work Phone: Start: 69-86-5621Em angio abd&plvis cntrst mtrl w/wo cntrst Jannette Grove MD Work Phone: Start: 97-22-9020Mb cervical spine w/o contrast materialAndrea Jemal Prado ACADEMIC PROGRAM SPECIALIST - INPATIENT CODER Work Phone: Start: 07-25-2021 End: 36-14-1466Svokmkvklha of packed red blood cellsKeri Hart MD Work Phone: Start: 58-81-7619Nwtiiadobi exam abdomen 1 viewKeri Hart MD Work Phone: Start: 07-25-2021 End: 61-22-4653Dnlsx count hemoglobinMissy Moore MD Work Phone: Start: 49-31-9801Venapdznebyrhzimyzmq w/rec awake&drowsyKakirk Sunshine ACADEMIC PROGRAM SPECIALIST - HAIR MACHINE OPERATOR Work Phone: Start: 07-25-2021 End: 34-03-5662Fjffnmk ionizedManolo Caballero MD Work Phone: Start: 70-83-7705KPAWX METABOLIC PANEL W/ REFLEX TO MG FOR LOW Geovanna Coyle MD Work Phone: Start: 39-06-9454Vcfsmivq Kirti Grove MD Work Phone: Start: 41-10-7049VNTAJJJQ BLOOD GAS, Adonay Willoughby MD Work Phone: Start: 07-25-2021 End: 63-90-0776Vhdw bld gluc mntr dev cleared fda spec home useJeff Willoughby MD Work Phone: Start: 07-24-2021 End: 29-47-1870Yapaj count hemoglobinMissy Moore MD Work Phone: Start: 94-75-5711Cgkvorz blood reagent stripJeff Willoughby MD Work Phone: Start: 07-24-2021 End: 78-68-8898Xkrdn of lactateMissy Moore MD Work Phone: Start: 49-13-0922Sjmlvai blood reagent Carley Willoughby MD Work Phone: Start: 07-24-2021 End: 42-68-8195Sbtslluffav of packed red blood cellsMissy Moore MD Work Phone: Start: 71-01-5712Nmzyt centrifuge enhncd id imfluor stain eaJany Sallie Penny ACADEMIC PROGRAM SPECIALIST - HAIR MACHINE OPERATOR Work Phone: Start: 07-24-2021 End: 10-12-5154Yfjjj typing serologic aboMissy Moore MD Work Phone: Start: 74-15-0658AYBZIEEV BLOOD GAS, Adonay Willoughby MD Work Phone: Start: 07-24-2021 End: 63-36-7151Exjlq of haptoglobin quantitativeMissy Moore MD Work Phone: Start: 66-53-6902Iatvlfd function panelMissy Moore MD Work Phone: Start: 73-57-7378Cgjst s aureus methicillin resist amp probe tqSeth Stokes MD Work Phone: Start: 73-95-5416Kpaavkbxyj exam chest single view Vale Schmidt MD Work Phone: [phone]: 30-85-2291Jg head/brain w/o contrast material Vale Schmidt MD Work Phone: Start: 94-10-5440Qy thorax w/contrast materialChris Lassiter MD Work Phone: Start: 35-11-3965Kojkhgx blood reagent stripSilver Carmona MD Work Phone: Start: 02-67-0863Ptjhulkfqb exam chest single view Chris Lassiter MD Work Phone: Start: 44-78-7479GOKCS METABOLIC PANEL W/ REFLEX TO MG FOR LOW Geovanna Coyle MD Work Phone: Start: 54-58-3377Tbkinur blood reagent stripSilver Carmona MD Work Phone: Start: 13-24-1865Fftinwe blood reagent Peggy Robledo MD Work Phone: Start: 86-24-5223Wvszbuc blood reagent Peggy Robledo MD Work Phone: Start: 33-97-1141Xqlhflf blood reagent Peggy Robledo MD Work Phone: Start: 32-97-3615GZYUZ METABOLIC PANEL W/ REFLEX TO MG FOR LOW Geovanna Coyle MD Work Phone: Start: 29-48-8600Fulzxgw blood reagent Peggy Robledo MD Work Phone: Start: 34-57-9909Iugtyxp blood reagent Peggy Robledo MD Work Phone: Start: 77-55-3818Pxmmkwe blood reagent stripJohnny Robledo MD Work Phone: Start: 82-74-9118Hkheakezmp exam chest single view Carlos Liu MD Work Phone: [phone]: 70-56-8389Rrbnqxc blood reagent stripJohnny Robledo MD Work Phone: Start: 01-49-5957Pvugnux bacterial blood aerobic w/id Leonela Robledo MD Work Phone: Start: 36-38-4292FBJYC METABOLIC PANEL W/ REFLEX TO MG FOR LOW Geovanna Coyle MD Work Phone: Start: 07-22-2021 End: 09-81-3155AJSRUNP, SEPSISJohnny Robledo MD Work Phone: Start: 10-37-3982TTABREE, BLOOD 1Bcalvin Robledo MD Work Phone: Start: 73-80-4408Zzffxmy blood reagent stripJohnny Robledo MD Work Phone: Start: 32-90-3919Cvxgiod blood reagent Peggy Robledo MD Work Phone: Start: 05-55-1031Natmujf blood reagent Peggy Robledo MD Work Phone: Start: 19-54-2194SPLBO METABOLIC PANEL W/ REFLEX TO MG FOR LOW Geovanna Coyle MD Work Phone: Start: 07-21-2021 End: 93-81-5265Eabni count complete automatedJohnny Robledo MD Work Phone: Start: 47-69-4898Mceoial blood reagent stripJohnny Robledo MD Work Phone: Start: 56-67-4340Tvvaehx blood reagent Peggy Robledo MD Work Phone: Start: 47-35-9417Xqtim of troponin Yonatan Schmidt MD Work Phone: Start: 07-20-2021 End: 37-34-1936Ioish of troponin Yonatan Schmidt MD Work Phone: Start: 32-05-1585Gribhkv blood reagent stripJohnny Robledo MD Work Phone: Start: 08-33-2321Aht routine ecg w/least 12 lds trcg only w/o i&rByary Castro MD Work Phone: Start: 90-70-5141Ziogt of magnesiumJohnny Robledo MD Work Phone: Start: 03-57-9285XZERM METABOLIC PANEL W/ REFLEX TO MG FOR LOW LEEonasri Coyle MD Work Phone: Start: 06-70-4595Awbatzelbv exam chest single view Deborah Castro MD Work Phone: Start: 44-46-4463Twvklxdurc exam abdomen 1 viewDeborah Castro MD Work Phone: Start: 70-96-8633Xgjkgnq blood reagent stripJohnny Robledo MD Work Phone: Start: 23-52-9766Htwremd blood reagent Peggy Robledo MD Work Phone: Start: 05-45-2209Izpttuucgen Aguilar Robledo MD Work Phone: Start: 55-84-0532Pgatlzf blood reagent Peggy Robledo MD Work Phone: Start: 16-46-4805Lzpsrvjywm exam abdomen 1 Gamaliel Robledo MD Work Phone: Start: 07-19-2021 End: 11-85-6861Thhkfrfscrg Aguilar Robledo MD Work Phone: Start: 79-84-0497VVGML METABOLIC PANEL W/ REFLEX TO MG FOR LOW Geovanna Coyle MD Work Phone: Start: 07-18-2021 End: 04-85-2306Fsyukyjtsfz Aguilar Robledo MD Work Phone: Start: 00-16-8002Fwewumaktq exam abdomen 1 viewJohnny Robledo MD Work Phone: Start: 93-76-0945Mwkbxqtpqi microscopic onlyCarlos Liu MD Work Phone: Start: 87-07-1142Khtqf dip stick/tablet rgnt auto w/o microscopyCarlos Liu MD Work Phone: Start: 07-18-2021 End: 26-25-7391Wiperpjoqnm panelJohnny Robledo MD Work Phone: Start: 02-66-8268EXUCJWKP REJECTIONJohnny Robledo MD Work Phone: Start: 29-61-2044Ajxwswu blood reagent stripJohnny Robledo MD Work Phone: Start: 61-89-0763Dalcmwflqq exam swallow function contrast studyJohnny Robledo MD Work Phone: Start: 02-56-1221Frcgubxgzlk panelJohnny Robledo MD Work Phone: Start: 07-18-2021 End: 48-25-9289Mxvql of magnesiumSwathi Gary VIVEROS Work Phone: Start: 93-28-0278OKLED METABOLIC PANEL W/ REFLEX TO MG FOR LOW KSwathi Gary VIVEROS Work Phone: Start: 72-25-3692Iuctqgp blood reagent stripJohnny Robledo MD Work Phone: Start: 07-17-2021 End: 46-83-2033Skvzlqngwed panelBecki Chang MD Work Phone: Start: 90-21-3172Auqih of osmolality Terrance Horton MD Work Phone: Start: 01-50-1170Wiksjxm blood reagent stripJohnny Robledo MD Work Phone: Start: 16-79-8340Sagse count complete auto&auto difrntl wbcJohnny Robledo MD Work Phone: Start: 22-24-0870Gcxtezt bacterial blood aerobic w/id isolatesJohnny Robledo MD Work Phone: Start: 46-49-4204IOZVONV, SEPSISJohnny Robledo MD Work Phone: Start: 64-26-8363IYHWVNK, BLOOD 1Bcalvin Robledo MD Work Phone: Start: 07-17-2021 End: 42-27-2697Jtmhx of magnesiumTami Vega MD Work Phone: Start: 98-18-5500XKYHD METABOLIC PANEL W/ REFLEX TO MG FOR LOW Madeline Vega MD Work Phone: Start: 90-74-7770Kmryhjv blood reagent stripSilver Carmona MD Work Phone: Start: 07-16-2021 End: 94-15-1987Pnvyw of magnesiumBecki Chang MD Work Phone: Start: 07-16-2021 End: 07-42-9431Oecnm of magnesiumTami Vega MD Work Phone: Start: 40-97-1541ZGRVYAYUV W/ REFLEX TO MAGNESIUM Tami Vega MD Work Phone: Start: 98-96-8985Qpihphy blood reagent stripSilver Carmona MD Work Phone: Start: 88-73-2247Dibkx of magnesiumTami Vega MD Work Phone: Start: 87-88-8364AVNYO METABOLIC PANEL W/ REFLEX TO MG FOR LOW Madeline Vega MD Work Phone: Start: 77-92-5797E-reactive proteinSharriet Vega MD Work Phone: Start: 68-30-3243Rdwolmx blood reagent stripSilver Carmona MD Work Phone: Start: 21-25-1731Jbiie count hemoglobinBecki Chang MD Work Phone: Start: 83-38-0638Soqljfg blood reagent stripSilver Carmona MD Work Phone: Start: 03-18-6978Tx thorax w/o contrast materialBecki Chang MD Work Phone: Start: 39-52-3971Euzdp of magnesiumJolynnselorenzo Carmona MD Work Phone: Start: 01-88-8505XNTGNUIKE W/ REFLEX TO MAGNESIUM Silver Carmona MD Work Phone: Start: 46-69-4118Nhnbbjn blood reagent stripSilver Carmona MD Work Phone: Start: 67-65-7686DLKZFMOV REJECTIONTami Vega MD Work Phone: Start: 14-32-1232Ypbbzwj blood reagent stripSilver Carmona MD Work Phone: Start: 54-98-1250Cjdfw of glutamyltrase gammaBridgette Stemple ACADEMIC PROGRAM SPECIALIST - INPATIENT CODER Work Phone: Start: 41-63-6085GUBPI METABOLIC PANEL W/ REFLEX TO MG FOR LOW KSharriet Vega MD Work Phone: Start: 21-42-0900Wwvyxxs function panelBridgette Stemple ACADEMIC PROGRAM SPECIALIST - INPATIENT CODER Work Phone: Start: 07-81-7915Aij routine ecg w/least 12 lds trcg only w/o i&rSharriet Vega MD Work Phone: Start: 24-97-2512Oplamqx blood reagent stripSilver Carmona MD Work Phone: Start: 33-96-7031Ehduxvt blood reagent stripSilver Carmona MD Work Phone: Start: 43-79-7742Lezwrpp bacterial blood aerobic w/id isolatesBridgette Stemple ACADEMIC PROGRAM SPECIALIST - INPATIENT CODER Work Phone: Start: 87-95-9950DBPQTWS, BLOOD 1Bridgette Stemple ACADEMIC PROGRAM SPECIALIST - INPATIENT CODER Work Phone: Start: 73-96-1218Dpeej of magnesiumChristopher Sallie Villarreal MD Work Phone: Start: 03-21-9436PUJDW METABOLIC PANEL W/ REFLEX TO MG FOR LOW KChradonis Villarreal MD Work Phone: Start: [id number], RAPIDChristopher Sallie Villarreal MD Work Phone: Start: [phone] exam chest single view Anthony Villarreal MD Work Phone: Start: 07-13-2021 End: [id number], BLOOD 1Chradonis Villarreal MD Work Phone: Start: 07-13-2021 End: [id number] of lactateChbarron Villarreal MD Work Phone: Start: [phone] spine cervical 2 or 3 views Kam Prado ACADEMIC PROGRAM SPECIALIST - INPATIENT CODER Work Phone: Start: 91-48-5770Qdvg prph ctr vad w/subq port age 3 yr/>Meka Crowe MD Work Phone (unformatted): [phone]: 36-41-5163NUZNF-19, JAYNEDanitorsten Argueta MD Work Phone: Start: 74-32-7049Sq cervical spine w/o contrast materialAndteofilo Prado ACADEMIC PROGRAM SPECIALIST - INPATIENT CODER Work Phone: Start: 77-46-3096Mjpwvng blood reagent stripSilver Carmona MD Work Phone: Start: 19-75-3561Wavvvkj blood reagent stripSilver Carmona MD Work Phone: Start: 97-67-7466Saxfa of magnesiumPardejoshua Wagner MD Work Phone: Start: 89-59-6811ANMTX METABOLIC PANEL W/ REFLEX TO MG FOR LOW KPardeep Bernard VIVEROS Work Phone: Start: 61-67-3682J-reactive proteinRufus Argueta MD Work Phone: [phone]: 28-84-7168Zlbgovw blood reagent stripJohnny Robledo MD Work Phone: [phone]: 02-34-3533MGPXL-19, RAPIDDaniel Marcell Argueta MD Work Phone: [phone]: 67-05-1546Ysucpzi blood reagent stripJohnny Robledo MD Work Phone: Start: 39-04-5891Dptrveu blood reagent stripJohnny Robledo MD Work Phone: Start: 05-86-7870Pxazrie blood reagent Peggy Robledo MD Work Phone: Start: 07-09-2021 End: 29-29-9727Ztegpxy blood reagent Peggy Robledo MD Work Phone: Start: 07-09-2021 End: 30-93-9541Xbwzbdq blood reagent Peggy Robledo MD Work Phone: Start: 25-77-5850Qkpudrk blood reagent stripJhonny Robledo MD Work Phone: Start: 17-91-1982KIESL METABOLIC PANEL W/ REFLEX TO MG FOR LOW KPardeep Bernard VIVEROS Work Phone: Start: 82-64-9815Ikjdp count complete auto&auto difrntl wbcDanitorsten Argueta MD Work Phone: [phone]: 31-89-4636I-reactive proteinRufus Argueta MD Work Phone: Start: 16-79-8079Omcvirh blood reagent stripJohnny Robledo MD Work Phone: [phone]: 35-20-3277Ohjzuav blood reagent Peggy Robledo MD Work Phone: Start: 75-62-0585Tcelmyw blood reagent stripJohnny Robledo MD Work Phone: Start: 68-03-5168Cgnnx count hemoglobinSwathmagdalena Vega MD Work Phone: Start: 50-08-9370Fjtph of magnesiumPardeep Bernard VIVEROS Work Phone: Start: 60-29-1385VFCFV METABOLIC PANEL W/ REFLEX TO MG FOR LOW KPardeep Bernard VIVEROS Work Phone: Start: 29-41-1322N-reactive proteinDaalex Argueta MD Work Phone: Start: 59-46-4189IEQIMSH, BLOOD 1Danitorsten Argueta MD Work Phone: Start: 33-96-1871Dansvge blood reagent stripJohnny Robledo MD Work Phone: Start: 33-00-7355Tkiaxcg blood reagent stripJohnny Robledo MD Work Phone: Start: 60-32-9277Oefztvm blood reagent stripJohnny Robledo MD Work Phone: Start: 10-06-0961TDJYAQJ, BLOOD 1Danitorsten Argueta MD Work Phone: Start: 31-07-8611Ghyyyxvb screenAlexandlaisha Martinez MD Work Phone: Start: 26-52-1884Bhtpzhiywn microscopic onlyDaalex Argueta MD Work Phone: Start: 39-82-6594Ducni dip stick/tablet rgnt auto w/o microscopyDanitorsten Argueta MD Work Phone: Start: 74-40-9270TVIXA METABOLIC PANEL W/ REFLEX TO MG FOR LOW KPardeep Bernard VIVEROS Work Phone: Start: 93-27-6806Tberk count complete auto&auto difrntl wbcDaalex Argueta MD Work Phone: Start: 36-85-0934Q-reactive proteinDaniel Marcell Argueta MD Work Phone: Start: 67-65-5753Hqh prsmptv pthgnc organism scrn w/colony estimjAlisia Cevallos DO Work Phone: Start: 82-27-1031Bvogmoe blood reagent stripJohnny Robledo MD Work Phone: Start: 72-74-4468Wtvopsbykrp during operationXin Vaishali Cevallos DO Work Phone: Start: 55-87-2278Dtnrigr ionizedJohnny Robledo MD Work Phone: Start: 46-84-0475TGZY HEART PANELJohnny Robledo MD Work Phone: Start: 93-66-1947Mdrwxjo bacterial quanttative colony count urineJohnny Robledo MD Work Phone: Start: 07-06-2021 End: 22-79-9865Dgwwxlzluzd of packed red blood cellsBrent Ally ACADEMIC PROGRAM SPECIALIST - HOSPITAL EDUCATION COORDINATOR Start: 95-34-1312Brxag typing serologic aboJohnny Robledo MD Work Phone: Start: 13-21-9376TRMWW GAS, ARTERIALJohnny Robledo MD Work Phone: Start: 00-63-3404Txndhcd ionizedJohnny Robledo MD Work Phone: Start: 39-07-0663FISFKMWD, WHOLE BLOODJohnny Robledo MD Work Phone: Start: 27-67-1817RYSQ HEART H&HBcalvin Robledo MD Work Phone: Start: 64-80-1960PPLDQU, WHOLE BLOODJohnny Robledo MD Work Phone: Start: 07-06-2021 End: 60-00-4667ZPHSJWLL LAMINECTOMY FUSIONXin Vaishali Cevallos DO Work Phone: Start: 14-09-8714Irbxfds blood reagent stripJohnny Robledo MD Work Phone: Start: 32-44-7447Xriorfw bacterial quanttative colony count urineDaalex Argueta MD Work Phone: Start: 07-06-2021 End: 31-13-2922Uysmg of magnesiumHari Wagner MD Work Phone: Start: 57-15-3760PPEGP METABOLIC PANEL W/ REFLEX TO MG FOR LOW KPardeep Bernard VIVEROS Work Phone: Start: 47-65-9331J-reactive proteinRufus Argueta MD Work Phone: Start: 87-05-9957Byjidcq blood reagent stripJohnny Robledo MD Work Phone: Start: 94-75-4267Npp brain brain stem w/o w/contrast materialSindy Sunshine ACADEMIC PROGRAM SPECIALIST - HAIR MACHINE OPERATOR Work Phone: Start: 69-59-9539Aonanut blood reagent stripJohnny Robledo MD Work Phone: Start: 72-87-3045Ijeauzvaaa exam swallow function contrast studyArenkirk Jong ACADEMIC PROGRAM SPECIALIST - HAIR MACHINE OPERATOR Work Phone: Start: 07-05-2021 End: 83-21-1552Zeippqkdx serum plasma/whole bloodTami Vega MD Work Phone: Start: 61-88-8070Padwixn blood reagent stripJohnny Robledo MD Work Phone: Start: 84-77-6403Cgkoo of Christi Wagner MD Work Phone: Start: 20-85-5223WXFUU METABOLIC PANEL W/ REFLEX TO MG FOR LOW KPardeep Bernard VIVEROS Work Phone: Start: 24-33-7536V-reactive proteinRufus Argueta MD Work Phone: Start: 72-55-6705Dcwvdbl blood reagent stripJohnny Robledo MD Work Phone: Start: 52-00-1656Inv spinal canal cervical w/o & w/contr shannanlAndteofilo Prado ACADEMIC PROGRAM SPECIALIST - INPATIENT CODER Work Phone: Start: 03-17-3750Cqtgxkz blood reagent stripJohnny Robledo MD Work Phone: Start: 07-04-2021 End: 84-40-3919WJTDDPY, BLOOD 1Julia Lars Bray ACADEMIC PROGRAM SPECIALIST - HAIR MACHINE OPERATOR Work Phone: Start: 96-26-0095Mrywxyw blood reagent stripJohnny Robledo MD Work Phone: Start: 07-04-2021 End: 35-32-4213Vbyoz of magnesiumParelizabeth Wagner MD Work Phone: Start: 90-39-2877CMLPB METABOLIC PANEL W/ REFLEX TO MG FOR LOW KPardeep Benrard VIVEROS Work Phone: Start: 26-95-6026M-reactive proteinDaalex Argueta MD Work Phone: Start: 15-30-9133Xrbemzn blood reagent stripJohnny Robledo MD Work Phone: Start: 01-76-2712Qxdxv spine cervical 2 or 3 Tonya Sen MD Work Phone: Start: 04-23-2475Hzkvilusb serum plasma/whole blood Hari Wagner MD Work Phone: Start: 15-96-4653Jrtyccm blood reagent stripJohnny Robledo MD Work Phone: Start: 75-48-5027Dctg &/joint imaging 3 phase study Meka Crowe MD Work Phone (unformatted): [phone]: 92-83-8817Qjzhpzq blood reagent strip Johnny Robledo MD Work Phone: Start: 94-46-2521Hgvovmifps exam swallow function contrast studyRufus Argueta MD Work Phone: Start: 28-68-8605Klsk tthrc r-t 2d w/wom-mode compl spec&colr Carrie Crowe MD Work Phone (unformatted): [phone]: 12-43-7509Tlebamh blood reagent strip Johnny Robledo MD Work Phone: Start: 61-54-6502Vamor of magnesiumParelizabeth Wagner MD Work Phone: Start: 54-59-9799ZQGCH METABOLIC PANEL W/ REFLEX TO MG FOR LOW KPardeep Bernard VIVEROS Work Phone: Start: 68-60-2672J-reactive proteinDaalex Argueta MD Work Phone: Start: 58-09-4448OXYSWZM, BLOOD 1Silver Carmona MD Work Phone: Start: 07-02-2021 End: 02-19-2333Dgejj count hemoglobinHari Wagner MD Work Phone: Start: 02-00-2001Ccshlczja serum plasma/whole blood Silver Carmona MD Work Phone: Start: 31-24-1553Jahrsgn blood reagent stripSilver Carmona MD Work Phone: Start: 87-84-1105Jqsmk count hemoglobinHari Wagner MD Work Phone: Start: 63-24-2122MPKERUW, BLOOD 1Akartik Crowe MD Work Phone (unformatted): [phone]: 07-02-2021 End: 24-51-0472Mhtxjdzjmfzvj intra/transmural needle aspirat/bxParelizabeth Wagner MD Work Phone: Start: 59-05-7958Acgiyme blood reagent stripSilver Carmona MD Work Phone: Start: 43-85-0218Sgnshgtuk serum plasma/whole blood Rufus Argueta MD Work Phone: Start: 94-54-7184Bjijjdg blood reagent stripSilver Carmona MD Work Phone: Start: 06-25-7495Rktjyra blood reagent stripSilver Carmona MD Work Phone: Start: 93-70-3009Wbnlt of Lexie Steve MD Work Phone: Start: 50-90-1079JZRGJ METABOLIC PANEL W/ REFLEX TO MG FOR LOW KPardeep Bernard VIVEROS Work Phone: Start: 54-53-4658E-reactive proteinDapbel Marcell Argueta MD Work Phone: Start: 07-01-2021 End: 61-32-1970Wnzks count hemoglobinPardeep Bernard VIVEROS Work Phone: Start: 15-47-2510BROGF OSTOMY EVALSilver Carmona MD Work Phone: Start: 07-01-2021 End: 85-19-4886Qtzbsar blood reagent stripSilver Carmona MD Work Phone: Start: 80-76-9829Pcbchaefe serum plasma/whole blood Tami Vega MD Work Phone: Start: 67-49-5500Yzafaky blood reagent stripSilver Carmona MD Work Phone: Start: 07-01-2021 End: 49-00-6710Zfhpx of magnesiumTami Vega MD Work Phone: Start: 02-74-3180Svrud of Lexie Steve MD Work Phone: Start: 72-48-1857GARGP METABOLIC PANEL W/ REFLEX TO MG FOR LOW KPardeep Bernard VIVEROS Work Phone: Start: 50-56-6749O-reactive proteinRufus Argueta MD Work Phone: Start: 42-46-0550LNGHQIK, BLOOD 1Akartik Crowe MD Work Phone (unformatted): [phone]: 06-30-2021 End: 26-28-5601Yetuq count hemoglobinPardejoshua Wagner MD Work Phone: Start: 54-92-9308Iubdbfu blood reagent stripSilver Carmona MD Work Phone: Start: 84-73-4907Sinzykl blood reagent strip Jenifer Jewell MD Work Phone: Start: 49-86-2065Xvqdf foot complete minimum 3 views Becki Chang MD Work Phone: Start: 06-30-2021 End: 23-65-1131Vbvba count hemoglobinHuhaylie Steve MD Work Phone: Start: 55-03-5223SVBHFVB, BLOOD 1Argenna Crowe MD Work Phone (unformatted): [phone]: 29-41-9488C-reactive proteinDaniel Marcell Argueta MD Work Phone: Start: 83-89-8461Aizinrz blood reagent strip Jenifer Jewell MD Work Phone: Start: 72-39-1450Vn cervical spine w/contrast material Mekajack Crowe MD Work Phone (unformatted): [phone]: 19-12-4743Oz thorax w/o contrast materialArgenna Crowe MD Work Phone (unformatted): [phone]: 99-80-5011Obnbvlxgmj exam chest single viewBecki Chang MD Work Phone: Start: 39-35-3427WYDHQOMIBOM PANEL, MOLECULAR, WITH COVID-19Becki Chang MD Work Phone: Start: 83-91-5097Oetrthe blood reagent strip Jenifer Jewell MD Work Phone: Start: 80-53-4838Plrfh centrifuge enhncd id imfluor stain Naomi Chang MD Work Phone: Start: 04-83-3088Slkpymdskvvofpcykduq w/rec awake&drowsyIsrar Wesley Lopez MD Work Phone: Start: 48-62-3456Cuytyfx blood reagent strip Jenifer Jewell MD Work Phone: Start: 06-29-2021 End: 29-83-4245Lfoxb of troponin quantitativeJonathan Steve MD Work Phone: Start: 58-44-1119T-reactive proteinJonathan Steve MD Work Phone: Start: 46-44-8303Jjotb of magnesiumSuamie Jewell MD Work Phone: Start: 63-81-2796RTMOE METABOLIC PANEL W/ REFLEX TO MG FOR LOW Dudley Jewell MD Work Phone: Start: 88-29-0798Qw cell mediated antign respnse gamma interferonJenifer Jewell MD Work Phone: Start: 06-81-9286Wcl routine ecg w/least 12 lds trcg only w/o i&rRcristy Chang MD Work Phone: Start: 75-81-7367Uxykncv blood reagent strip Jenifer Jewell MD Work Phone: Start: 77-01-6182XXYWCXJ LABORATORY CHARGESparminder Jewell MD Work Phone: Start: 64-10-9260XDMYUZPM REJECTIONJenifer Jewell MD Work Phone: Start: 09-87-0238Gaqxjysdcz glycosylated a1c Jenifer Jewell MD Work Phone: Start: 44-52-1523Exnlp panelSparminder Jewell MD Work Phone: Start: 71-81-8835Gfkrr herpes somplx virus amplified probe Nathaniel Jewell MD Work Phone: Start: 06-28-2021T. PALLIDUM ABSparminder Jewell MD Work Phone: Start: 09-32-2276OLIHFBNT PATHOLOGY REPORTSubgabo Jewell MD Work Phone: Start: 30-93-6830Owdy count misc body fluids w/differential countDev Méndez MD Work Phone: Start: 15-57-4881Pkqfkiy body fluid other than blood Dev Méndez MD Work Phone: Start: 06-28-2021 End: 28-87-8753Qfacs nos amplified probe tq each organismDev Méndez MD Work Phone: Start: 57-77-1543OGCGOGRJLL ENCEPHALITIS PANEL CSF, MOLECULARDev Méndez MD Work Phone: Start: 26-39-2339Uqek flu washgs/brushings xcpt c/v smrs interpjDev Méndez MD Work Phone: Start: 63-34-3561KROQKZU, BLOOD 1Dev Méndez MD Work Phone: Start: 12-74-5926It angiography neck w/contrast/noncontrastTyler Jemal Méndez MD Work Phone: Start: 13-54-9429Snkai of lipaseDev Méndez MD Work Phone: Start: 76-29-7630YBBXPAB, SEPSISIsrar Wesley Lopez MD Work Phone: Start: 46-11-8814Res routine ecg w/least 12 lds trcg only w/o i&rAlexander Yoel Martinez MD Work Phone: Start: 49-95-0185Ds abdomen & pelvis w/contrast Mechelle Boothe MD Work Phone: Start: 14-99-1418Fgxb screen class list Liyah Boothe MD Work Phone: Start: 06-28-2021 End: 39-88-5255Ecead of ammoniaChris Boothe MD Work Phone: Start: 86-48-5399ZNYLP-19, RAPIDChris Boothe MD Work Phone: Start: 06-28-2021 End: 27-33-4224Vxlqbxfrbw microscopic onlyChris Boothe MD Work Phone: Start: 65-75-6267Srbyv dip stick/tablet rgnt auto w/o microscopyChris Boothe MD Work Phone: Start: 68-50-4500Vk head/brain w/o contrast material Chris Boothe MD Work Phone: Start: 71-46-6127Brphythdae exam chest single viewChris Boothe MD Work Phone: Start: 38-07-4072Rrjju of acetaminophenChris Boothe MD Work Phone: Start: 85-63-8756Rpcuj of ethanolChris Boothe MD Work Phone: Start: 15-07-9220Rwafq of salicylateChris Boothe MD Work Phone: Start: 70-57-9043Ywxuyfor kinase totalChris Boothe MD Work Phone: Start: 20-10-3655MBE AND ELECTRONIC DIFFJoseph Jesse Mtz MD Work Phone: Start: 25-35-0324Edkmixjf blood count with white cell differential, automatedJoseph Jesse Mtz MD Work Phone: Start: 32-60-5439Fhoyjgwbgr bloodJoseph Jesse Mtz MD Work Phone: Start: 71-83-2320Uelzqq-up visitFollow-upNICOLE R BENAMEURStart: 19-42-4152Djfslbadpv examination and evaluationJef Sierra Jr., DPM Work Phone: start: 99-94-8591Mqtzzaeasw examination and evaluation Jef Sierra Jr., DPM Work Phone: start: 12-08-5902SRAZX Ortiz Mariela DPM Work Phone: start: 25-68-6469Cbegoydegbeq ophthalmic imaging optic nerveOlga Lidia Matos MD Work Phone: Start: 32-08-2262EQP AND ELECTRONIC DIFFFranck Mtz MD Work Phone: Start: 61-00-8263Qnlbftbi blood count with white cell differential, automatedFranck Mtz MD Work Phone: Start: 71-75-6979Vhckycvdni Zena Mtz MD Work Phone: Start: 83-43-1716Fokczzarmc examination osseous survey complJojon Mtz MD Work Phone: Start: 53-46-4343NXF AND ELECTRONIC DIFFFranck Mtz MD Work Phone: Start: 72-91-8973Osknkyrk blood count with white cell differential, Markie Mtz MD Work Phone: Start: 74-19-2002Jenepkqzuo Zena Mzt MD Work Phone: Start: 12-26-2017 End: 84-17-9976TXYXLZ (OUTSIDE)Historical Provider Plan of Treatment DateCare ActivityDetailAuthorStart: 11-60-6318Lkdypktytigb Vaccine: Ped or At- Risk (2 of 2 - PPSV23)Pneumococcal Vaccine: Ped or At-Risk (2 of 2 - PPSV23) [facility]Start: 12-27-2024 End: 15-63-2938Nclnegk encounter hkzrmteny29/10/2025 1:45 PM EST Office Visit [facility] [address] [place] [address] Skylar Whitfield DO [address] [place] [address] [facility] EyeStart: 09-27-2024 End: 18-79-8146Tysxbwd encounter procedureNOMS OPHTComment on above:Arrived Start: 08-27-2024 End: 75-09-7181Rovqlqt encounter fhurjxvoe62/11/2025 10:30 AM EDT Office Visit [facility] [address] [place] [address] Ramona Campuzano PA [address] [place] [address] ArrivedNOMS SWS DERMComment on above:ArrivedStart: 08-23-2024 End: 81-45-5747Qyhaobj encounter uydaxdsqt45/07/2025 10:50 AM EDT Office Visit [facility] [address] [place] [address] Nadia Quiñones, ACADEMIC PROGRAM SPECIALIST-HAIR MACHINE OPERATOR [address] [place] [address] [facility] DERMStart: 08-17-2024 End: 60-96-5523Fjflruv encounter ghlnburfj16/01/2025 10:50 AM EDT Office Visit [facility] [address] [place] [address] Nadia Quiñones, ACADEMIC PROGRAM SPECIALIST-HAIR MACHINE OPERATOR [address] [place] [address] [facility] DERMStart: 16-49-9560Xqjwa panel LipidsMercy HealthStart: 07-09-2023 End: 08-01-0293Gkhwfzd encounter bxzmlnizf18/22/2024 9:05 AM EDT Office Visit [facility] [address] [place] [address] Nadia Quiñones, ACADEMIC PROGRAM SPECIALIST-HAIR MACHINE OPERATOR [address] [place] [address] [facility] DERMStart: 10-01-2022 End: 07-94-8958Dxsmgxv encounter /15/2023 Office Visit Neurosurgery Alisia Cevallos, DO [address] [place] [address] [facility] [place]: 77-21-4442ZJV test (Diabetes, CKD 3-4, OR last GFR 15-59)GFR test (Diabetes, CKD 3-4, OR last GFR 15-59)[facility]: 29-92-9082Louotvtgls A1c matfcsvrgkdA5F test (Diabetic or Prediabetic)[facility]: 07-24-2022 Screening for malignant neoplasm of colonBON [facility]: 09-70-2238Vpugmxlh foot examinationBON [facility]: 06-28-2022 Lipid panelBON [facility]: 19-48-8621Pmvrkcag retinal exam Diabetic retinal examBON [facility]art: 15-37-6963Pxbcronp retinal eye examEYE EXAMOSOhioHealthtart: 29-03-9451Azkzhmoi screening Diabetic retinal examBON [facility]Start: 35-60-0955MND [facility]art: 24-07-0527OPKHUMPYFJAEISI [facility]Start: 03-15-2022 Microalbumin measurement, urine, quantitativeURINE MICROALBUMIN TESTOSU [facility] Centertart: 15-55-2694Pyxtdcq stimulating hormone measurementMount Carmel Health Systemtart: 03-08-2022 End: 14-22-1046Bqocsez encounter wdwcaaqij81/20/2023 Office Visit Neurosurgery Alisia Cevallos, DO [address] [facility] [address] [place] [address] [facility] [place]: 02-14-2022 Ophthalmic examination and evaluationOphthalmology ExamOhioHealthStart: 61-67-0338Nljhyzbltn examination and evaluationOphthalmology ExamOhioHealth Start: 12-07-2021 End: 91-19-3460Kjjoxrm encounter vevgeyuor96/21/2022 [facility]: 41-56-7427Xxzdfubio vaccinationFlu vaccine (Season Ended)[facility] CenterStart: 80-56-0113XFT [facility]Start: 10-05-2021 Diabetic retinal eye examDIABETIC EYE EXAMOSU [facility] Centertart: 16-84-2644Weznsphrjg A1c measurementBON [facility]Start: 09-17-2021 Influenza vaccinationFlu vaccine (#1)[facility]ON [facility]: 09-13-2021 Diabetic retinal eye examDIABETIC EYE EXAMOSU [facility] Centertart: 07-71-8973Jkesxtahky A1c urcovynjmrvHBN2E TESTOSOhioHealthtart: 80-89-8035XIQHZXCQZXQURwnhr Health SystemStart: 40-11-6264Efowyswmmddv measurement, urine, quantitativeURINE MICROALBUMIN TESTTriHealth Bethesda Butler Hospitaltart: 00-06-9266Qyuujbtnx [Moles/volume] in Serum or PlasmaPOTASSIUMTriHealth Bethesda Butler Hospitaltart: 08-22-2021 End: 63-91-3513KMTHQIEG LAMINECTOMY [facility] Hospitaltart: 08-22-2021 End: 57-07-8600SCKB ORStart: 21-90-7009Sjtgztrv retinal eye examDIABETIC EYE EXAMTriHealth Bethesda Butler Hospitaltart: 08-08-2021 End: 27-73-1489Osbtwsd encounter lazrrpwkh55/22/2022 Office Visit Infectious Diseases Meka Crowe MD [address] [facility], [address] [place] [phone] (Work) [facility]. Start: 07-31-2021 End: 73-13-6220Tzzyfuk encounter nuwzvtrfl57/14/2022 Office Visit Podiatry Jef Sierra Jr., DPM [address] [place] [address] [facility] PodiatryStart: 07-25-2021 End: 72-09-3924Vmepbes encounter /08/2022 Office Visit Neurosurgery Alie Loza, ACADEMIC PROGRAM SPECIALIST - HAIR MACHINE OPERATOR [address] [facility] [address] [facility] [address] [place] [address] [facility] [place]Start: 07-17-2021 End: 72-97-7917Jxcibwi encounter nhvobqdws07/31/2022 Office Visit Urology Kevin Quintanilla MD [address] [place] [address] [facility] CenterStart: 07-13-2021 End: 13-36-7814Dmlso metabolic 2000 panel - Serum or PlasmaBON [facility] Work Phone: start: 07-10-2021 End: 57-94-9028Zennbge encounter audqwrvqc99/24/2022 Office Visit Neurology Franck Mtz MD [address] [place] [address] [facility] Outpatient CareStart: 75-30-8495Gjeuymgfmr A1c zumtykqvsimO2ZOzitHtahmmFcurg: 07-04-2021 End: 59-27-0208vydoyivfrt45/18/2022 Infusion Visit [facility]rologyInfusion [facility] CareStart: 06-20-2021 End: 54-66-5314xpkpbjypmv44/04/2022 Infusion Visit [facility]rologyInfusion [facility] CareStart: 06-18-2021 End: 36-49-6914Exzyafb encounter weudvytby77/02/2022 Office Visit Endocrinology, Diabetes & Metabolism Luis Miguel Kaur MD [address] [place] [address] [facility] EndocrinologyStart: 06-07-2021 End: 43-68-4877Zyzwcwm encounter zjxjjoyjl52/21/2022 Office Visit Ophthalmology Sharon Hernandez MD [address] [facility] [address] [place] [address] [facility] Start: 06-06-2021 End: 43-37-2155pjmydbdfsy61/20/2022 Infusion Visit NeurologyInfusion [facility] Outpatient CareStart: 06-05-2021 End: 06-10-7061Thhssun encounter vzbhhlapp07/19/2022 Office Visit Orthopaedics Yaritza Stanley MD [address] [id number] [facility] MedicineStart: 05-31-2021 End: 97-76-0620Ddbmwwz encounter lkcyqgcha68/14/2022 Office Visit Ophthalmology Sharon Hernandez MD [address] [place] [address] [facility] Start: 05-23-2021 End: 14-28-3427qkxdapmjtw91/06/2022 Infusion Visit NeurologyInfusion [facility]adi Ramach[facility]ran Outpatient CareStart: 05-15-2021 End: 44-84-4733Hbbbifu encounter ieblfjvlj06/29/2022 Office Visit Ophthalmology Olga Lidia Matos MD [address] [facility] [address] [place] [address] [facility]: 04-17-2021 End: 58-73-6043Borwjxr encounter mjqarvcrw89/01/2022 Office Visit Podiatry Jef Sierra Jr., DPM [address] [place] [address] [facility] PodiatryStart: 03-06-2021 End: 48-25-4646Jsvtgzx encounter uihaatwkq58/18/2022 Office Visit PodiatrJef Boykin Jr., DPM [address] [place] [address] [facility] PodiatryStart: 03-04-2021 Hemoglobin A1c measurementClermont County Hospitalart: 02-20-2021 End: 21-49-2237Zsjrpqc encounter mkooladcy27/04/2022 Office Visit Jef Vieira Jr., DPM [address] [place] [address] [facility] PodiatryStart: 2021 End: 40-99-3505Jaaxzmw encounter /21/2021 Office Visit Jef Vieira Jr., DPM [address] [place] [address] [facility] PodiatryStart: 01-30-2021 End: 43-03-6668Tawgmsr encounter genriatpw48/14/2021 Office Visit Jef Vieira Jr., DPM [address] [place] [address] [facility] PodiatryStart: 01-23-2021 End: 66-67-6069Bgutamt encounter lkaqxnlpn50/07/2021 Office Visit Jef Vieira Jr., DPM [address] [place] [address] [facility] PodiatryStart: 01-16-2021 End: 68-45-5587Pjkycib encounter okrvzvzqd39/30/2021 Office Visit Jef Vieira Jr., DPM [address] [place] [address] [facility] PodiatryStart: 01-09-2021 End: 95-43-7000Ygtyxwt encounter ngiulrzta83/23/2021 Office Visit PodJef Wagner Jr., DPM [address] [place] [address] [facility]iatryStart: 01-01-2021 End: 66-97-0070Qwsbfnr encounter fjhqezwdm99/15/2021 Office Visit Neurology Nurys Thornton R, ACADEMIC PROGRAM SPECIALIST-HAIR MACHINE OPERATOR [address] [place] [id number] Neurology [facility] Start: 12-26-2020 End: 03-60-3077Pmxqthd encounter chwexfnpg30/09/2021 Office Visit Podiatry Jef Sierra Jr., DPM [address] [place] [address] [facility]Start: 12-02-2020 Hemoglobin A1c hwyekgjvaqgF0HXorkCwbvabBsojg: 11-30-2020 End: 75-95-0665Tkaxqwo encounter cxoravagp68/14/2021 Office Visit Ophthalmology Sharon Hernandez MD [address] [place] [address] [place], [place] [address] [facility] Start: 11-16-2020 End: 19-82-9301Mlpqmel encounter fkfjjukix63/30/2021 Office Visit Podiatry Jef Sierra Jr., DPSallie [address] [place] [address] [facility] PodiatryStart: 11-16-2020 End: 76-54-9890Scxyjrm encounter okughgqja71/30/2021 Office Visit Endocrinology, Diabetes & Metabolism Luis Miguel Kaur MD [address] [place] [address] [facility] EndocrinologyStart: 11-14-2020 End: 59-93-3727Cafvokx encounter sfufebgby04/28/2021 Office Visit Ophthalmology Olga Lidia Matos MD [address] [place] [address] [facility]: 11-07-2020 End: 04-70-5682Obayjrp encounter ormsyejrz43/21/2021 Office Visit Neurology Nurys Thornton, ACADEMIC PROGRAM SPECIALIST-HAIR MACHINE OPERATOR [address] [place] [phone] Neurology [facility] Start: 86-51-5542Opbxyrbcu vaccinationOhioHealthStart: 10-18-2020 End: 91-23-3272Hgjcfpl encounter llfvvhenk84/01/2021 Office Visit Ophthalmology Sharon Hernandez MD [address] [place] [address] [facility] Start: 10-17-2020 End: 67-67-4986cqwqnbipnu88/31/2021 Infusion Visit [facility]rologyInfusion [facility] CareStart: 10-10-2020 End: 89-37-1973Dttpbwo encounter wnipegafw56/24/2021 Office Visit Ophthalmology Olga Lidia Matos MD [address] [place] [address] [facility]: 40-30-9461Bkdrkxnuawbh 0-64 years Vaccine (2 - PCV)Pneumococcal 0-64 years Vaccine (2 - PCV)BON [facility]Start: 33-55-7368BPU [facility]: 10-05-2020 End: 78-57-1127Zwdgwde encounter lygjkrpss71/19/2021 Office Visit Ophthalmology Sharon Hernandez MD [address] [place] [address] [facility] Start: 10-03-2020 End: 42-38-0781mksmowntrhChbrjnji [facility] CareStart: 10-03-2020 End: 74-64-8911Gignsiz encounter iutfzaixf15/17/2021 Office Visit PodiatrJef Boyikn Jr., DPM [address] [place] [address] [phone] [facility] PodiatryStart: 09-26-2020 End: 25-15-2182KCTTYBY MOTOR NEUROPATHY [facility] Work Phone: comment on above:Expected: 09/26/2020, Expires: 09/26/2021tart: 09-26-2020 End: 76-04-0635KRAHAICRegency Hospital Cleveland WestComment on above:Expected: 09/26/2020, Expires: 09/26/2021tart: 09-19-2020 End: 16-36-0904eozkaluisl16/03/2021 Infusion Visit NeurologyInfusion [facility] CareStart: 09-14-2020 End: 24-69-7824Gkmtrpt encounter wachivusj75/29/2021 Office Visit PodiatrJef Boykin Jr., MARK [address] [place] [address] [phone] [facility] PodiatryStart: 19-01-7717Wlwlzwdiu vaccinationFlu vaccine (#1)[place], [place]: 64-55-1132Xmhfbnfyj vaccination givenSequential Influenza Vaccine (#1)[facility] Company[facility]: 08-25-2019 Creatinine measurementCreatinine monitoringDelaware County Hospital KYStart: 08-25-2019 Potassium monitoringPotassium monitoringOhioHealth [facility]in Memorial [facility], [place]Start: 08-12-2019 Urine screening for proteinBON SECOURS [facility] HOSPITALStart: 84-67-9734SSHWPKNPTUSY [facility] Work Phone: Start: 91-70-6455Bgetexqd retinal eye examDIABETIC EYE EXAMPremier Health [facility] Hospital Work Phone: Start: 07-35-2149Fqgiglkusmb QnTSheltering Arms Hospital Work Phone: Start: 45-73-0757Thyarr Wellness Visit (AWV)Annual Wellness Visit (AWV)ARASELI CRUZ [facility]OS[facility]ITALStart: 44-55-7595LrA0h (Bld) [Mass fraction]A1C test (Diabetic or Prediabetic)[place], [place]Start: 07-06-2018 End: 74-73-8517Vpiebdpvre72/20/2019 Office Visit Neurology Nurys Thornton, ACADEMIC PROGRAM SPECIALIST-HAIR MACHINE OPERATOR [address] [address] [facility]rology [facility] HospitaliliH[facility] Divisiontart: 00-01-0840Aawjeezhma A1c/Hemoglobin.total mass fraction (Bld)HBA1C TESTPremier Health Miami [facility] Hospital Work Phone: Start: 55-45-5779Nwtxrha mass concMAMMOGRAM SCREENING DISCUSSIONPremier Health [facility] Hospital Work Phone: Start: 85-90-3036Kswuepqux mammographyMAMMOGRAM SCREENING [facility] Hospitaltart: 04-02-2018 End: 30-48-5265Btzqmptcce60/14/2019 Appointment NEUROPHYSIOLOGY Estefania Markham MD [address] [place] [address] Department of NeurologyStart: 03-20-2018 End: 24-31-2318Gnosxnruug47/01/2019 Office Visit Ophthalmology Grace Washington MD [address] [place] [address] [facility]Start: 03-05-2018 End: 37-97-2440ZgivfesqhlIvslmlyv of Hematology & OncologyStart: 02-03-2018 End: 36-06-7938Mjejzudmof22/18/2018 Office Visit Sleep Medicine Stefani Estrada MD [address] [place] [address] Department of Sleep MedicineStart: 01-22-2018 End: 74-52-9673EklnhiayojCsada Health RheumatologyStart: 45-63-4044Vvtdtegzq vaccinationOhioHealthStart: 76-84-8257Mqokdpdte vaccination givenSEQUENTIAL INFLUENZA VACCINE (#1)IllinoisHealthStart: 52-96-3463Hshes panelLipid [place], [place]Start: 00-81-3747Optofhnhza59/23/2018 Hospital Encounter Martha Yanney, DPM [address] [place] [address] [phone] [facility]tart: 76-22-7136Gvuqtdangm14/19/2018 Office Visit Cardiology GilliamIndiraPili Franck, DPM [address] [place] [address] [phone] Reji Miramontes III, DO [address] [place] [address] [phone] [facility] Vascular PhysiciansStart: 40-13-3480Innpsxmhq vaccinationSEQUENTIAL INFLUENZA VACCINE (#1)OhioHealthStart: 36-26-8574Imdvhsvb microalbuminuria testDiabetic microalbuminuria [place], [place]Start: 80-12-7310Uwnkvffkbxcalp of herpes zoster vaccineZoster Vaccines (2 of 3)[facility] CompanyStart: 81-10-9533Ejqeoykq vaccine (1 of 2)Shingles vaccine (1 of 2)[facility]Start: 40-55-3089Uxrywomc vaccine (2 of 3)Shingles vaccine (2 of 3)[facility] CenterStart: 64-49-1760Sfavvm vaccine hzv live for subcutaneous useZOSTER (SHINGLES) VACCINE (2 of 3)[facility] Hospitaltart: 57-43-3129LML [facility]ITALStart: 73-80-1973Xaoxlkyrmtunoy of herpes zoster vaccineZoster Vaccines (1 of 2) IllinoisHealthStart: 81-93-8946XyjytnxekgnLBWOA CANCER SCREENING [facility] Work Phone: Start: 96-32-4717Nbtvhvl mass concCOLON CANCER SCREENING DISCUSSIONPremier Health [facility] Work Phone: Start: 22-76-5888Vajquhcjn for malignant neoplasm of breastMercy HealthStart: 40-64-6154Vihqwpywa for malignant neoplasm of colon OhioHealthStart: 87-19-0843Cnlltyvx Vaccine (1 of 2)Shingles Vaccine (1 of 2) [place], [place]Start: 07-94-7280Gzpqml vaccine hzv live for subcutaneous useZOSTER (SHINGLES) VACCINE (1 of 2)[facility] Hospitaltart: 02-07-2008 ColonoscopyCOLORECTAL CANCER SCREENING DISCUSSIONOSOhioHealthtart: 36-18-6898Dqxelisjk for malignant neoplasm of colonMadison Health HealthStart: 2003 Screening for malignant neoplasm of breastMammogramOhAdena Regional Medical CenterStart: 1993 Screening for malignant neoplasm of cervixMadison Health HealthStart: 35-65-6694Szcwyhodh for malignant neoplasm of cervixOSOhioHealthtart: 1982 DTaP/Tdap/Td vaccine (1 - Tdap)DTaP/Tdap/Td vaccine (1 - Tdap)[facility] CenterStart: 73-19-0078Zynbvcngc B vaccine (1 of 3 - Risk 3-dose series)Hepatitis B vaccine (1 of 3 - Risk 3-dose series)[facility]ENTERStart: 18-10-2555Iwsun diphtheria, tetanus and acellular pertussis (DTaP) vaccinationTDAP (ADULT)OSOhioHealthtart: 09-08-4359BXQ [facility]: 1981 Hepatitis C antibody, confirmatory testHepatitis C ScreeningRegency Hospital CompanyStart: 66-96-3906Ozkoxeuec C screeningRegency Hospital CompanyStart: 48-08-6810Vrtrytdahtph measurement, urine, quantitativeURINE MICROALBUMIN TESTPremier Health [facility] Work Phone: Start: 42-65-6540Tlejxpl vaccinationTETANUSOSOhioHealthtart: 07-97-5504IJMVP-19 Vaccine (1 of 2)COVID-19 Vaccine (1 of 2)OhioHealthStart: 20-08-8713UJF screeningOhHealthStart: 07-90-2927LPV screeningHIV SCREENING [facility] Work Phone: Start: 75-53-7490Xycvdexlqw depression screening assessmentDepression Screening (PHQ9)[facility] CompanyStart: 02-33-1538AHSHW-19 Vaccine (1)COVID-19 Vaccine (1)[facility] CompanyStart: 93-14-7402Ouzjkqwtgh ScreenDepression ScreenMercy Health Perrysburg Hospitalart: 50-57-3388Pqsynngaml screening using PHQ-9 (Patient Health Questionnaire 9) scoreOhioHealthStart: 29-52-4467BDAHEALTHSOUTH MEDICAL CENTER Start: 83-29-8533Oehfopmm foot examination (regime/therapy)[facility] CompanyStart: 69-42-0490Nfjyjndv retinal examDiabetic retinal examDelaware County Hospital KYStart: 18-14-7039Taiayplsuzue measurement, urine, quantitativeUrine Microalbumin OhioHealthStart: 53-45-6574Lzspmusfqh examination and evaluationOPHTHALMOLOGY EXAMOhioCleveland ClinicStart: 15-88-7727Obmmb, microalbuminURINE MICROALBUMINRegency Hospital Company Start: 67-33-0381Tdwtpqunwjsn Vaccine: Ped or At-Risk (1 of 2 - PPSV23) Pneumococcal Vaccine: Ped or At-Risk (1 of 2 - PPSV23)IllinoisHealthStart: 09-27-7093FGTTZ-19 Vaccine (1)COVID-19 Vaccine (1)IllinoisHealthStart: 06-98-0442PSKHEALTHSOUTH MEDICAL CENTERStart: 63-42-5937Wvluucq and physical examination, annual for health maintenanceWellfranciscan health lafayette central VisitOhioHealthStart: 75-98-9933VZYGU-19 Vaccine (#1)COVID-19 Vaccine (#1)[facility]ENTERStart: 45-54-6968Qgtkrr Wellness Visit (AWV)Annual Wellness Visit (AWV)[facility] Hospitalart: 1965 Diabetic foot examinationDIABETIC FOOT EXAMOSU Wright-Patterson Medical Centertart: 41-39-8851BwY1lPPIEZBVENO O9ZGkodYjdtqgNcexw: 55-96-7559Hghtftagyx A1c fnvfcfhavxxW7KDtrpSjtvyyKkehl: 49-65-4984Gdygntpgu C antibody, confirmatory test HEPATITIS C SCREENINGOhioHealthStart: 77-95-6438RHEWUQZUG C SCREENINGHEPATITIS C SCREENINGOhioHealthStart: 10-35-5428Vehakmhno C screeningHepatitis C [facility] KYStart: 01-08-8189Fkdoree mass concMammogramOhioHealthStart: 49-98-5197Yyyftsjuu colonoscopyCOLONOSCOPYOhioHealthStart: 20-69-4216Wqdpelavm for malignant neoplasm of cervixPAP SMEAROhioHealthStart: 88-81-8650Qycnsdqwy for malignant neoplasm of colonColorectal Cancer Screening: Colonoscopy OhioHealthStart: 86-44-7883Mbzxvjhqp mammographyMammogramOhioHealthStart: 58-40-8495Cqqfopz vaccinationOhioHealthStart: 36-90-4845VSBHEALTHSOUTH MEDICAL CENTER Aerobic cultureAerobic culture Microbiology Timed Impetigo Release Upon Ordering for 1 Occurrences starting 08/27/2024[facility] [employer] Work Phone: comment on above:Release Upon Ordering for 1 Occurrences starting 08/27/2024 End: 51-56-4218Tamekyf microbial cultureWound Aerobic Culture Microbiology Routine Foot abscess, left 1 Occurrences starting 09/14/2020 until 09/14/2021 OhioHealthComment on above:1 Occurrences starting 09/14/2020 until 09/14/2021 Aerobic microbial cultureWound Aerobic Culture Microbiology Routine Wound infection Partial thickness burn of single finger of right hand excluding thumb, initial encounter 05/01/2021 3:00 PM EDTOhiFirelands Regional Medical Center South CampusPrinted Piece Work Phone: Basic Metabolic Panel w/ Reflex to [employer] Work Phone: basic Metabolic Panel w/ Reflex to [facility] HOSPITALCash'o & Butcher DOCTORS HOSPITALBiomeasure Work Phone: bLOOD GAS, [facility] [employer] Work Phone: blood gas, [facility] Health SystemCash'o & Butcher DOCTORS HOSPITALBiomeasure Work Phone: [phone]-kdqvpisi proteinBON LIVERMORE [facility] [employer] Work Phone: cBC W Auto Differential panel - BloodWYTHE COUNTY COMMUNITY HOSPITAL [employer] Work Phone: End: 98-78-0731RCR W Auto Differential panel - BloodHEALTHSOUTH MEDICAL CENTER Work Phone: cBC W Auto Differential panel - BloodWYTHE COUNTY COMMUNITY HOSPITAL [employer] Work Phone: continuous pulse oximetryBON LIVERMORE VA HOSPITAL [employer] Work Phone: End: 18-06-3880GPAMM-19COVID-19 Lab Routine Once for 1 Occurrences starting 02/17/2020 until 02/17/2020[facility]- [place], [place]Comment on above:Once for 1 Occurrences starting 02/17/2020 until 02/17/2020 End: 96-56-3780Hxitkojmlv [Mass/volume] in Serum or PlasmaWYTHE COUNTY COMMUNITY HOSPITAL [employer] Work Phone: culture, Anaerobic and AerobicBON LIVERMORE VA HOSPITAL [employer] Work Phone: End: 55-63-3272Otjlghs, Blood 1[employer] Work Phone: Comment on above:One Time for 1 Occurrences starting 06/28/2021 until 2Culture, Blood 1[facility] [employer] Work Phone: culture, Blood 1[facility] [employer] Work Phone: culture, Blood 1[facility] [employer] Work Phone: Culture,BacterialCulture,Bacterial Routine 03/14/2017 9:30 AM ESTOhioHealth Work Phone: Glucose [Mass/volume] in Serum or PlasmaWYTHE COUNTY COMMUNITY HOSPITAL [employer] Work Phone: Glucose [Mass/volume] in Serum or PlasmaWYTHE COUNTY COMMUNITY HOSPITAL [employer] Work Phone: End: 67-78-7687Qwwmfuf [Mass/volume] in Serum or PlasmaBON [employer]CLead[employer] Phone: End: 21-40-8329Mwjppuob RT Adult Mechanical Ventilation ProtocolCHARRON MATERNITY HOSPITALLeadSpend, Inc. Phone: Mechanical Ventilation with default initial settings [facility] [place] Phone: Oxygen therapy [Minimum Data Set][facility] [place] Phone: Oxygen therapy [Minimum Data Set][facility] MATERNITY HOSPITALLeadSpend, Inc[facility] Phone: End: 82-46-8902SFWAEQWF SPECIMENSIERRA VISTA REGIONAL HEALTH CENTER [facility] [facility] [place] Phone: End: 37-67-9495XRJFWQWM SPECIMENCHARRON MATERNITY HOSPITALLeadSpend, Inc. Phone: End: 33-27-7561CJJLIVCC MARGOTSIERRA VISTA REGIONAL HEALTH CENTER [facility] [facility] [place] Phone: End: 87-24-8832JKFGUSOB SPECIMENCHARRON MATERNITY HOSPITALLeadSpend, Inc. Phone: Respiratory Care Evaluation and TreatCHARRON MATERNITY HOSPITALLeadSpend, Inc. Phone: End: 36-53-1366ZRJ clinical swallow evaluationCHARRON MATERNITY HOSPITALLeadSpend, Inc[facility] Phone: End: 57-09-1291Zowbmu and language therapy regimeCHARRON MATERNITY HOSPITALLeadSpend, Inc[facility] Phone: spontaneous Breathing Trial (SBT)[facility] [place] Phone: End: 25-27-0224Oeads ostomy eval and treatCHARRON MATERNITY HOSPITALLeadSpend, Inc[facility] Phone: Immunizations Immunization DateImmunizationNotesCare TutlrrfbMpdegbfu17-98-4587fhfxoxkyl virus vaccine, unspecified formulationJef Sierra Jr. DPM Work Phone: [phone]qmuuh11-39-7477htvlnmzkehgh vaccine, unspecified formulationJef Sierra Jr. DPM Work Phone: [phone]uiiuo36-09-4725drjacpbxc virus vaccine, whole virusFranck Mtz MD Work Phone: HHR [facility]ighIdpsib01-58-0345urozrybdz, seasonal, injectableFranck Mtz MD Work Phone: ZTQ [facility] GlenbeighGypiud98-27-7259bjetcf vaccine, liveFranck Mtz MD Work Phone: [facility]09-18-2014influenza virus vaccine, unspecified formulationTodd [facility] Work Phone: [phone]rurwmj vaccine, unspecified formulation Franck Mtz MD Work Phone: X [facility] System GlenbeighMxfsrl89-54-1204qldowjzheegr polysaccharide vaccine, 23 valentFranck Mtz MD Work Phone: [facility] Payers DatePayer CategoryPayerPolicy ID2023[address] [place] [id number] [id number] [id number]-[id number] 2003Medicarexxxxxxxxxx [id number] 2003Medicare ..[id number] [id number] 1.2.840.055090.1.13.385.2.7.3.819489.90545-88-4946Crzddenkog (not Medicare or Medicaid)[facility] 1.2.840.328350.1.13.693.2.7.9.424027.499856.55204-63-0831Xwqvvakexjmkjsdq 2.840.1.470420.3.249.7118-09-8406Uhhaevmvxhwn5523 1.2.840.127671.1.13.385.2.7.3.356560.66340-89-8934Tirapri 1.2.840.009277.1.13.385.2.7.3.061827.98611-42-1286Vipjtjg30169980 2.840.1.169763.3.579.2.79893-16-1675Yrumgdo1612589 2.16.840.1.493350.3.579.2.38437-95-0281Iuhtcgw4122695 2.16.840.1.366765.3.579.2.41314-08-2491Nplwrln949359096 2.16.840.1.182883.3.579.2.04681-39-0647Crhlsrs006234057 2.16.840.1.055862.3.579.2.75272-40-9030Xkxrteg240935231 2.16.840.1.518955.3.579.2.83850-12-5673Tjcpzdl110489865 2.16.840.1.351533.3.579.2.74182-34-8441Ezzbkbs162047369 2.16.840.1.370350.3.579.2.49697-04-7534Nvefruh497850504 2.16.840.1.729093.3.579.2.22817-45-5677Whctrux661410053 2.16.840.1.846493.3.579.2.01559-04-4106Xxzyyqf899403883 2.16.840.1.746028.3.579.2.36862-33-0024Lfwitkk002453076 2.16.840.1.782204.3.579.2.11614-84-0145Zvhaisj598720482 2.16.840.1.544967.3.579.2.11230-65-2261Yuowzrw052890770 2.16.840.1.369142.3.579.2.00405-47-2280Tquevpd960830234 2.16.840.1.853871.3.579.2.32516-76-6400Clpaigz221810148 2.16.840.1.392184.3.579.2.72966-05-0707Jnvunpf541133328 2.16.840.1.832484.3.579.2.62518-66-0113Hvpgshk188406078 2.16.840.1.515470.3.579.2.22931-40-1729Twttzsh497695474 2.16.840.1.087463.3.579.2.02974-00-8158Xrxyomn653750695 2.16.840.1.213787.3.579.2.05838-64-8172Wmpzimo00905884 2.16.840.1.694853.3.579.2.177965-04-6690Sarouzk28677586 2.16.840.1.486300.3.579.2.563377-79-1544Rdwkarn515746524 2.16.840.1.924817.3.579.2.17688-53-8855Fgmoyag212410838 2.16.840.1.294129.3.579.2.40629-82-9181Gfelayp448571681 2.16.840.1.794921.3.579.2.84293-04-9842Aqujvbp54209622 2.16.840.1.411058.3.579.2.08271-42-5663Ymhfxjx165539951 2.16.840.1.016013.3.579.2.06992-53-2257Haksexp440743564 2.16.840.1.673045.3.579.2.43863-62-8491Rqeakvx806196066 2.16.840.1.232467.3.579.2.30583-35-4273Vbnvexz355979908 2.16.840.1.376126.3.579.2.49465-51-2582Pwjytle012766193 2..840.1.016677.3.579.2.13035-83-3654Srdlyws863332479 2.16.840.1.082426.3.579.2.06342-76-2631Zkuqypt753778053 2.16.840.1.622357.3.579.2.06023-72-9816Wsgtstf103217622 2.16.840.1.509577.3.579.2.88493-51-6537Cbiveji525285945 2.16.840.1.846973.3.579.2.35365-07-7025Ydfszyb060686200 2.16.840.1.822124.3.579.2.18170-64-0088Mdasxct537043589 2.16.840.1.671900.3.579.2.71275-44-4381Eclokvt064035803 2.16.840.1.274027.3.579.2.53580-44-6242Whyqyje334053581 2.16.840.1.654085.3.579.2.72549-01-4188Mxahhqs822003567 2.16.840.1.528101.3.579.2.06320-35-5264Yxbqhyr155797011 2..840.1.516222.3.579.2.62912-27-5289Fykfkbr925344702 2..840.1.998162.3.579.2.68771-99-7595Ncfwxeb357871186 2..840.1.020355.3.579.2.05885-99-8297Klokbbj369941543 2..840.1.576123.3.579.2.75176-07-5923Bahxxho284018790 2.16.840.1.074343.3.579.2.53566-93-5163Geskweg880550491 2.16.840.1.722906.3.579.2.50865-41-4076Tgrripn243820764 2.16.840.1.547740.3.579.2.35929-49-1050Augjbfh986431458 2.16.840.1.895073.3.579.2.44390-20-5638Jopinkj748930284 2.16.840.1.756846.3.579.2.62791-05-4104Vucelwh68308896 2.16.840.1.828803.3.579.2.97631-31-3176Tronfjb277931167 2..840.1.213783.3.579.2.77656-05-1698Yspcnwu055016155 2.16.840.1.426142.3.579.2.97346-21-0533Setjdkb97057459 2..840.1.027642.3.579.2.90409-16-8819Tnkziwt50634146 2..840.1.237037.3.579.2.32040-70-8543Pghrkyp33470424 2..840.1.956302.3.579.2.75768-42-2483Eidntne38586310 2..840.1.632263.3.579.2.76174-06-0994Wbfwdgt14741860 2.0.1.343832.3.579.2.07474-46-6534Dkaosal71963586 2.0.1.479745.3.579.2.430410-55-4777Dvkakgc63944619 2..840.1.102530.3.579.2.782451-49-7616Qitovpn2469805 2.840.1.702232.3.579.2.1259 [id number] 1962Unknown [id number] 2.840.[id number] 2.0.[id number] 2.840.1.807044.3.579.2.531 Social History DateTypeDetailFacilityStart: 04-07-2017 End: 01-94-4723Wdtjvhk smoking status NHISFormer smokerOhioHealth End: 96-92-4254Ipocgyy of tobacco useCurrent smokerOhioHealthStart: 1965 Sex Assigned At BirthNot on fileKyioCleveland Clinic Work Phone: Start: 03-15-2017 End: 00-62-3649Nbplhls smoking status NHISUnknown if ever smokedUNIVERSITY OF UTAH [facility]OSPITAL Healthcare End: 65-37-6938Zbxaisf of tobacco useCigarette SmokerPlainview Hospitals [facility] Work Phone: Start: 10-11-3692Tlhjqmq Commentdoesn't remember how much she smokedOhioHealthStart: 77-19-6727Fbbonwt CommentrarelyOhioHealthStart: 12-20-2019 End: 34-51-0378Cbvjaul use and exposureNever usedOhioHealthStart: 12-20-2019 End: 58-99-7013Hbtfcps intakeCurrent drinker of alcohol (finding)[facility] Start: 04-07-2021 End: 94-68-6527Ukuricto to SARS-CoV-2 (event)Not sureOhioHealthStart: 10-05-2017 End: 67-22-4999Xnvlmdx intakeCurrent non-drinker of alcohol (finding)[facility] [place]Start: 05-40-3668Qpo Assigned At BirthMetroHealth Main Campus Medical CenterGender identityNot on [facility] HealthcareStart: 10-14-3381Jhb FemaleCitizens Memorial Healthcare Medical Equipment Procedure CodeEquipment CodeEquipment Original TextEquipment IdentifierDates1 strip by Unknown route 3 times daily (take before meals).[id number]: 10-13-2017 End: 51-20-4942Aice Au00t0 D 23.5 - [id number]: 91-71-9116Iyj Tissue Cornea [place] [id number]: 47-66-2817Nvfwpgl Opth 250sq Mm Jo 1 Qdrnt Ins Fx Sut Hl Rcs Knt Cpb - [id number]: 02-23-2020 [id number]_impStart: 19-81-5140Ybw Screw [facility] M6 - [id number]: 09-25-2021 Clinical Notes 09-13-2020 to 12-23-2024 Note Date & JjluJurlKochwuhf79-24-1405 Telephone encounter Note* Telephone Encounter - Jay Chávez NP - 12/23/2024 1:09 PM EST Please call the facility and let them know the meds were sent. [facility] [id number] Miscellaneous Notes* Telephone Encounter - Jay Chávez NP - 12/23/2024 1:09 PM EST Please call the facility and let them know the meds were sent. * Telephone Encounter - Jany Becerra MA - 12/13/2024 9:04 AM EDT Hi, my name is Alaian. I am calling from [facility]. Assisted living calling on [facility]. By s date of is 122 1965 [...] and she use the [facility]. If you have any questions, you can give me a Call at [phone]. Thank you, bimal. Omeprazole ,levothyro vitamin d 400 units daily and vitamin 100 units daily she stated she was on synthroid 100 mcg , this is not on her list documented in this encounterCitizens Memorial HealthcareIuujywdzro07-31-5080 Telephone encounter Note* Telephone Encounter - Jany Becerra MA - 12/13/2024 9:04 AM EDT Dorian, my name is Alaina. I am calling from [facility]. Assisted living calling on [facility]. By s date of is 1220 1965 [...] and she use the [facility]. If you have any questions, you can give me a Call at [phone]. Thank you, bimal. Omeprazole ,levothyro vitamin d 400 units daily and vitamin 100 units daily she stated she was on synthroid 100 mcg , this is not on her list [facility] [id number] Telephone encounter Note* Telephone Encounter - Jay [...] (1,000 mg) at bedtime Authorizing Provider: JAY CÁHVEZ [facility] [id number] Miscellaneous Notes* Telephone Encounter - Jay Chávez [...] Authorizing Provider: JAY CHÁVEZ documented in this [facility]10-14-2025 Telephone encounter Note* Telephone Encounter - Jay [...] mouth Daily Authorizing Provider: JAY CHÁVEZ patient. [facility] [id number] Miscellaneous Notes* Telephone Encounter - Jay Chávez [...] Provider: JAY CHÁVEZ patient. documented in this [facility]10-07-2025 Telephone encounter Note* Telephone Encounter - Jay Chávez NP - 11/23/2024 6:57 PM EDT Requested Prescriptions Signed Prescriptions Disp Refills potassium chloride CR (K-Tab) 20 MEQ ER tablet 30 tablet 11 Sig: Take 1 tablet (20 mEq) by mouth Daily Do not crush, chew, or split. Authorizing Provider: JAY CHÁVEZ [facility] [id number] Miscellaneous Notes* Telephone Encounter - Jay Chávez NP - 11/23/2024 6:57 PM EDT Requested Prescriptions Signed Prescriptions Disp Refills potassium chloride CR (K-Tab) 20 MEQ ER tablet 30 tablet 11 Sig: Take 1 tablet (20 mEq) by mouth Daily Do not crush, chew, or split. Authorizing Provider: JAY CHÁVEZ documented in this [facility]10-07-2025 Telephone encounter Note* Telephone Encounter - Mahin Bernal MD - 11/23/2024 9:35 AM EDT Needed refill of Potassium Chloride [facility] [id number] Miscellaneous Notes* Telephone Encounter - Mahin Bernal MD - 11/23/2024 9:35 AM EDT Needed refill of Potassium Chloride documented in this [facility]10-06-2025 Telephone encounter Note* Telephone Encounter - Jay [...] chew, or split. Authorizing Provider: JAY CHÁVEZ [place] [id number] Miscellaneous Notes* Telephone Encounter - Jay Chávez [...] Authorizing Provider: JAY CHÁVEZ documented in this encounterCitizens Memorial [id number] NoteRight Eye Reliability was good. Progression has been stable. Foveal threshold was normal. Findings include superior arcuate defect, superior nasal step defect. Left Eye Reliability was good. Progression has been stable. Foveal threshold was normal. Findings include superior arcuate defect, superior nasal step defect, inferior nasal step defect.[facility] [id number] History of Present illness Narrative* Skylar Whitfield, [...] laser capsulotomy, they are to notify their dry cleaner apprentice promptly if they have a significant change in symptoms, such as flashes of light (photopsia), an increase in floaters, loss of visual field or decrease in visual acuity. Dry eyes - Dry Eyes OU -- Environmental changes to minimize dryness and exposure and the use of artificial tears were recommended. documented in this encounterCitizens Memorial [id number] History of Present illness Narrative* COY Hopper [...] Account Name: Marisa Jonas NPI: Ramona Campuzano [id number] Next Visit: prn for any new/changing lesions documented in this encounterCitizens Memorial HealthcareJtvqylxjbg70-47-1130 History of Present illness Narrative* Skylar Whitfield, [...] laser capsulotomy, they are to notify their dry cleaner apprentice promptly if they have a significant change in symptoms, such as flashes of light (photopsia), an increase in floaters, loss of visual field or decrease in visual acuity. Dry eyes - Dry Eyes OU -- Environmental changes to minimize dryness and exposure and the use of artificial tears were recommended. documented in this encounterCitizens Memorial [id number] NoteED Patient Education Note Orthopedics Acute Back [...] Managing pain, stiffness, and swelling ??? Take zdir-mty-owrkixw and prescription medicines only as told by [...] day. ??? Do not sit, drive, or clinical education manager one place for more than 30 minutes [...] problems. ??? Y (more content not included)...[facility]07-07-2022 Note MR#: [id number] I [facility] Pt. Name: Meg Georges Admitted: 08/19/2021 [...] PEG tube. The patient recently was at [facility] in June for complaint of MSSA septicemia. She was trached at that time. She also was found to have an epidural phlegmon, which was causing compression on the cervicomedullary junction. She was given 6 weeks course of antibiotics for osteomyelitis. She had surgery at [place] postoperatively here after the packing was removed from her nares as she was found to have leaking from her nares. She had a CT facial and brain, which showed a possible CSF leak. Decision was made by our Neurosurgery team and our SICU team to transfer her back to her surgeon since . She was accepted and transferred back to the ICU at [place]. The patient was discharged in stable condition. Electronically Signed by: Jerry Pozo MD 08/23/2021 11:13 A Jerry Pozo MD I have reviewed this discharge summary and confirmed the resident's documentation. Please note that there may be additional documentation from me. Date Dict: 08/22/2021/05:19 P/Mai Grier CNP Date Trans: 08/23/2021 07:42 A/genaro [id number] cc: Johny Beckman M.D. [address] [facility]. Emergency Medicine [facility] [address] Neri Purcell D.O. [address] [facility] [facility] Fernando [facility]Prov[facility] [address]xv[facility]06[facility] History of Present illness [...] Unable to assess Fluid Accumulation: Mild Extremities,Generalized Saturation Equipment Operator Strength: Not Performed Nutrition Assessment: Chart reviewed. [...] Anthropometric Measures: Height: 5' 5 (165.1 cm) [place] Body Weight (IBW): 125 lbs (57 kg) [...] were not included. [facility] -Progress Note Today's Date and Time: 08/10/2021, [...] of C2 fx noted Infection Control Recommendations Jonancy Precautions Isolate for Covid until 07-23-21 Antimicrobial [...] through 08-20-21. Patient was transferred back to [facility] on 07-14-21 because of a positive [...] EPIDURAL PHLEGMON performed byAlisia Cevallos DO at [facility] OR CHOLECYSTECTOMY EYE SURGERY [address] shunt for open angle glaucoma. MRI compatible- device is all silicone LAMINECTOMY 07/06/2021 Posterior C1, LEFT C2 RHIZOTOMY, EXPLORATION OF EPIDURAL PHLEGMON PICC INSERTION VASCULAR ACCESS TEAM 07/10/2021 SHOULDER SURGERY right TRACHEOSTOMY 07/30/2021 TRACHEOSTOMY N/A 07/30/2021 TRACHEOTOMY performed by Erica Santiago MD at [facility] OR UPPER GASTROINTESTINAL ENDOSCOPY N/A 07/02/2021 EGD ESOPHAGOGASTRODUODENOSCOPY performed by Hari Wagner MD at [facility] Endoscopy Medications: insulin glargine [...] Friends and Family: Not on file Attends Oriental [employer] Services: Not on file Active Member of [...] extension (from neutral), as above. Medical Decision Mnosfs-Fuctyigw-Qpquv: SARS-CoV-2, Rapid COVID-19, Rapid Collected: 07/13/21 6014 Result status: Final Resulting lab: [facility] Reference range: Not Detected Value: [...] this assay. Fact sheet for Healthcare Providers: https://www.fda.gov/media/657427/download Fact sheet for Patients: https://www.fda.gov/media/618769/download Methodology: Isothermal Nucleic Acid Amplification Culture, Respiratory Order: [id number] Status: Final result Visible to patient: No (not released) Next appt: Today at 02:30 PM in Radiology (STV MRI RM 1 (1.5T)) Specimen Information: Sputum Aspirated 0 Result Notes Component 07/24/21 3538 Specimen Description .ASPIRATED SPUTUM Direct Exam < 10 EPITHELIAL CELLS/LPF Direct Exam >25 NEUTROPHILS/LPF Direct Exam MANY GRAM NEGATIVE RODS Abnormal Culture KLEBSIELLA AEROGENES HEAVY GROWTH Abnormal Culture NO NORMAL ROB Resulting Agency [facility] Susceptibility Klebsiella aerogenes (1) Antibiotic Interpretation Microscan [...] Patient's name: Meg Georges Patient's account/billing number: [id number] Patient's Date of : 1965 Age: 56 [...] [facility] from outpatient infusion center whereshe had [...] Date 08/10/21 0000 - 08/10/21 2359 Shift 9931-0243 3181-9823 2761-4433 24 Hour Total INTAKE I.V.(mL/kg) 169(2.9) 169(2.9) [...] Results Component Value Date PHART 7.406 07/06/2021 UGZ7FJM 34.8 07/06/2021 PO2ART 279.0 07/06/2021 OGC6BFI 21.4 07/06/2021 K2IZRJJP 99.4 07/06/2021 FIO2 30.0 08/05/2021 Lactic Acid: [...] No results for input(s): LABIRON, TIBC, FERRITIN, CZIJVDFO81, FOLATE, OCCULTBLD in the last 72 hours. [...] Ativan; Seroquel 50mg nightly Pain control - vea 10 q6h S/p cervical spine surgery 07/06/21 [...] MD Department of Internal Medicine/ Critical care [facility]) 08/10/2021, 7:54 AM Attending Physician Statement I [...] this chart was generated using voice recognition Sweet [employer] dictation software. Although every effort was made to ensure the accuracy of this automated gas golf cart repairer, some errors in gas golf cart repairer may have occurred. * Leeann Smith RN - 08/09/2021 6:22 PM EDT PALLIATIVE CARE NURSING ASSESSMENT Patient: Meg Georges Room: 3024/3024-01 Reason For Consult Goals of care evaluation Distress management Guidance and support Facilitate communications Assistance in coordinating care Code Status: Full Code Summary: Pt visit, stable on cpap trial. Awaiting placement to [facility]. Spoke with COURTNEY Santamaria 08/10/21. I gave her suggestions on how to locate Living Will/ Will information. Discussed code classifications again. She confirms understanding and thinks her sister would want to remain full code. Acknowledged and supported Hina in this decision as well as moving forward with transfer to [facility]. Encouraged her to call as needed. [...] plan to move to [facility] when bed available. She was told [...] Hina relates patient filled out DPOAH at [facility] in [place]. 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 Wishedpatient and family well moving forward. Tire Changer Leeann UREÑA, RN, ONN-CG [place] Office: [phone] [place] Office: [phone] [facility] Office: [phone] For Symptom Management Clinic scheduling please call [phone] * Seth Stokes MD - 08/09/2021 10:52 AM EDT Images from the original note were not included. [facility] -Progress Note Today's Date and Time: 08/09/2021, [...] of C2 fx noted Infection Control Recommendations Jonancy Precautions Isolate for Covid until 07-23-21 Antimicrobial [...] through 08-20-21. Patient was transferred back to [facility] on 07-14-21 because of a positive [...] EPIDURAL PHLEGMON performed byAlisia Cevallos DO at [facility] OR CHOLECYSTECTOMY EYE SURGERY [address] shunt for open angle glaucoma. MRI compatible- device is all silicone LAMINECTOMY 07/06/2021 Posterior C1, LEFT C2 RHIZOTOMY, EXPLORATION OF EPIDURAL PHLEGMON PICC INSERTION VASCULAR ACCESS TEAM 07/10/2021 SHOULDER SURGERY right TRACHEOSTOMY 07/30/2021 TRACHEOSTOMY N/A 07/30/2021 TRACHEOTOMY performed by Erica Santiago MD at [facility] OR UPPER GASTROINTESTINAL ENDOSCOPY N/A 07/02/2021 EGD ESOPHAGOGASTRODUODENOSCOPY performed by Hari Wagner MD at [facility] Endoscopy Medications: QUEtiapine 25 [...] Friends and Family: Not on file Attends Oriental [employer] Services: Not on file Active Member of [...] extension (from neutral), as above. Medical Decision Ctjqwx-Jvihmcdn-Vhfjm: SARS-CoV-2, Rapid COVID-19, Rapid Collected: 07/13/21 5701 Result status: Final Resulting lab: [facility] Reference range: Not Detected Value: [...] this assay. Fact sheet for Healthcare Providers: https://www.fda.gov/media/191658/download Fact sheet for Patients: https://www.fda.gov/media/739344/download Methodology: Isothermal Nucleic Acid Amplification Culture, Respiratory Order: [id number] Status: Final result Visible to patient: No [...] Abnormal Culture NO NORMAL ROB Resulting Agency [facility] Susceptibility Klebsiella aerogenes (1) Antibiotic Interpretation Microscan [...] Patient's name: Meg Georges Patient's account/billing number: [id number] Patient's Date of : 1965 Age: 56 [...] [facility] from outpatient infusion center whereshe had [...] Date 08/09/21 0000 - 08/09/21 2359 Shift [id number] [id number] 3688-7518 24 Hour Total INTAKE I.V.(mL/kg) 191(3.2) 191(3.2) [...] Results Component Value Date PHART 7.406 07/06/2021 KDO0CNW 34.8 07/06/2021 PO2ART 279.0 07/06/2021 HJD4UDO 21.4 07/06/2021 T6DQNMPN 99.4 07/06/2021 FIO2 30.0 08/05/2021 Lactic Acid: [...] No results for input(s): LABIRON, TIBC, FERRITIN, RSVDLNOO75, FOLATE, OCCULTBLD in the last 72 hours. [...] MD Department of Internal Medicine/ Critical care [facility]) 08/09/2021, 8:12 AM Attending Physician Statement I [...] this chart was generated using voice recognition [employer] dictation software. Although every effort was made to ensure the accuracy of this automated gas golf cart repairer, some errors in gas golf cart repairer may have occurred. 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 [facility] -Progress Note Today's Date and Time: 08/08/2021, [...] of C2 fx noted Infection Control Recommendations Jonancy Precautions Isolate for Covid until 07-23-21 Antimicrobial [...] through 08-20-21. Patient was transferred back to [facility] on 07-14-21 because of a positive [...] EPIDURAL PHLEGMON performed byAlisia Cevallos DO at [facility] OR CHOLECYSTECTOMY EYE SURGERY [address] shunt for open angle glaucoma. MRI compatible- device is all silicone LAMINECTOMY 07/06/2021 Posterior C1, LEFT C2 RHIZOTOMY, EXPLORATION OF EPIDURAL PHLEGMON PICC INSERTION VASCULAR ACCESS TEAM 07/10/2021 SHOULDER SURGERY right TRACHEOSTOMY 07/30/2021 TRACHEOSTOMY N/A 07/30/2021 TRACHEOTOMY performed by Erica Santiago MD at [facility] OR UPPER GASTROINTESTINAL ENDOSCOPY N/A 07/02/2021 EGD ESOPHAGOGASTRODUODENOSCOPY performed by Hari Wagner MD at [facility] Endoscopy Medications: QUEtiapine 50 [...] Friends and Family: Not on file Attends Oriental [employer] Services: Not on file Active Member of [...] extension (from neutral), as above. Medical Decision Omzvft-Gfcftzsb-Tnswv: SARS-CoV-2, Rapid COVID-19, Rapid Collected: 07/13/21 2208 Result status: Final Resulting lab: [facility] Reference range: Not Detected Value: [...] this assay. Fact sheet for Healthcare Providers: https://www.fda.gov/media/015838/download Fact sheet for Patients: https://www.fda.gov/media/797126/download Methodology: Isothermal Nucleic Acid Amplification Culture, Respiratory Order: [id number] Status: Final result Visible to patient: No (not released) Next appt: Today at 02:30 PM in Radiology (STV MRI RM 1 (1.5T)) Specimen Information: Sputum Aspirated 0 Result Notes Component 07/24/21 4092 Specimen Description .ASPIRATED SPUTUM Direct Exam < 10 EPITHELIAL CELLS/LPF Direct Exam >25 NEUTROPHILS/LPF Direct Exam MANY GRAM NEGATIVE RODS Abnormal Culture KLEBSIELLA AEROGENES HEAVY GROWTH Abnormal Culture NO NORMAL ROB Resulting Agency [facility] [place] Susceptibility Klebsiella aerogenes (1) Antibiotic [...] patient. Please call with questions. Jany Francis, ACADEMIC PROGRAM SPECIALIST - HAIR MACHINE OPERATOR ATTESTATION: I have discussed the case, including pertinent history and exam findings with the ACADEMIC PROGRAM SPECIALIST. I have evaluated the History, physical findings and pictures of the patient and the coffey elements of the encounter have been performed by me. I have reviewed the laboratory data, other diagnostic studies and discussed them with the ACADEMIC PROGRAM SPECIALIST. I have updated the medical record where necessary. I agree with the assessment, plan and orders as documented by the ACADEMIC PROGRAM SPECIALIST. Seth Stokes MD. * Guy Ochoa MD - 08/08/2021 7:18 AM EDT Critical Care Team - Daily Progress Note Date and time: 08/08/2021 7:18 AM Patient's name: Meg Georges Patient's account/billing number: [id number] Patient's Date of : 1965 Age: 56 [...] [facility] from outpatient infusion center whereshe had [...] Date 08/08/21 0000 - 08/08/21 2359 Shift [id number] 9527-3319 6042-0077 24 Hour Total INTAKE I.V.(mL/kg) 196.4(3.3) 196.4(3.3) [...] Humidification Source: HME Cuff Pressure (cm H2O): (oracle brm developer) Skin Barrier Applied: (Mepilex placed after trach change) Lab Results Component Value Date PHART 7.406 07/06/2021 HUX9WHP 34.8 07/06/2021 PO2ART 279.0 07/06/2021 XXY0WCL 21.4 07/06/2021 X4EYPNRN 99.4 07/06/2021 FIO2 30.0 08/05/2021 Lactic Acid: [...] No results for input(s): LABIRON, TIBC, FERRITIN, HADJMDGZ28, FOLATE, OCCULTBLD in the last 72 hours. [...] MD Department of Internal Medicine/ Critical care [facility]) 08/08/2021, 7:18 AM Attending Physician Statement I [...] this chart was generated using voice recognition [employer] dictation software. Although every effort was made to ensure the accuracy of this automated gas golf cart repairer, some errors in gas golf cart repairer may have occurred. * Alisia Cevallos DO [...] Anthropometric Measures: Height: 5' 5 (165.1 cm) [place] Body Weight (IBW): 125 lbs (57 kg) [...] CARE NURSING ASSESSMENT Patient: Meg Georges Room: [address] [place] [address] Reason For Consult Goals of care evaluation [...] Encephalitis Encephalopathy CIDP (chronic inflammatory demyelinating polyneuropathy) ([facility]) Sepsis (HCC) Bacteremia Hypothyroidism Hypokalemia Type 2 diabetes mellitus with diabetic polyneuropathy (HCC) Primary hypertension Upper GI bleed Non-intractable vomiting Unintentional weight loss Metabolic encephalopathy MSSA (methicillin susceptible Staphylococcus aureus) septicemia ([facility]) CRP elevated Bandemia Allergy to [...] to call us as needed. Update given. Tire Changer Leeann UREÑA, RN, ONN-CG [facility] Office: [phone] [place] Office: [phone] [facility] Office: [phone] For Symptom Management Clinic scheduling please call [phone] * Seth Stokes MD - 08/07/2021 10:19 AM EDT Images from the original note were not included. [facility] -Progress Note Today's Date and Time: 08/07/2021, [...] view prior to surgicalintervention. Infection Control Recommendations Jonancy Precautions Isolate for Covid until 07-23-21 Antimicrobial [...] through 08-20-21. Patient was transferred back to [facility] on 07-14-21 because of a positive [...] EPIDURAL PHLEGMON performed byAlisia Cevallos DO at [facility] OR CHOLECYSTECTOMY EYE SURGERY [address] shunt for open angle glaucoma. MRI compatible- device is all silicone LAMINECTOMY 07/06/2021 Posterior C1, LEFT C2 RHIZOTOMY, EXPLORATION OF EPIDURAL PHLEGMON PICC INSERTION VASCULAR ACCESS TEAM 07/10/2021 SHOULDER SURGERY right TRACHEOSTOMY 07/30/2021 TRACHEOSTOMY N/A 07/30/2021 TRACHEOTOMY performed by Erica Santiago MD at [facility] OR UPPER GASTROINTESTINAL ENDOSCOPY N/A 07/02/2021 EGD ESOPHAGOGASTRODUODENOSCOPY performed by Hari Wagner MD at [facility] Endoscopy Medications: QUEtiapine 25 [...] Friends and Family: Not on file Attends Oriental [employer] Services: Not on file Active Member of [...] Decision Making-Imaging: No new imaging Medical Decision Ibmdhj-Fzyzqcvl-Lqnqm: SARS-CoV-2, Rapid COVID-19, Rapid Collected: 07/13/21 1030 Result status: Final [facility] Reference range: Not Detected Value: [...] this assay. Fact sheet for Healthcare Providers: https://www.fda.gov/media/532866/download Fact sheet for Patients: https://www.fda.gov/media/188270/download Methodology: Isothermal Nucleic Acid Amplification Culture, Respiratory Order: [id number] Status: Final result Visible to patient: No (not released) Next appt: Today at 02:30 PM in Radiology (STV MRI RM 1 (1.5T)) Specimen Information: Sputum Aspirated 0 Result Notes Component 07/24/21 7721 Specimen Description .ASPIRATED SPUTUM Direct Exam < 10 EPITHELIAL CELLS/LPF Direct Exam >25 NEUTROPHILS/LPF Direct Exam MANY GRAM NEGATIVE RODS Abnormal Culture KLEBSIELLA AEROGENES HEAVY GROWTH Abnormal Culture NO NORMAL ROB Resulting Agency [facility] [place] Susceptibility Klebsiella aerogenes (1) Antibiotic [...] Patient's name: Meg Georges Patient's account/billing number: [id number] Patient's Date of : 1965 Age: 56 [...] [facility] from outpatient infusion center whereshe had [...] Date 08/07/21 0000 - 08/07/21 235 Shift [id number] 0546-9126 2393-1127 24 Hour Total INTAKE I.V.(mL/kg) 382.5(6.4) 382.5(6.4) [...] Humidification Source: HME Cuff Pressure (cm H2O): (oracle brm developer) Skin Barrier Applied: (Mepilex placed after trach change) Lab Results Component Value Date PHART 7.406 07/06/2021 ONQ9WLD 34.8 07/06/2021 PO2ART 279.0 07/06/2021 NJH4WQD 21.4 07/06/2021 E0PHKBDE 99.4 07/06/2021 FIO2 30.0 08/05/2021 Lactic Acid: [...] No results for input(s): LABIRON, TIBC, FERRITIN, GSQWMGYO75, FOLATE, OCCULTBLD in the last 72 hours. [...] MD Department of Internal Medicine/ Critical care [facility]) 08/07/2021, 7:58 AM Attending Physician Statement I [...] this chart was generated using voice recognition [employer] dictation software. Although every effort was made to ensure the accuracy of this automated gas golf cart repairer, some errors in gas golf cart repairer may have occurred. * Kam Loera, ACADEMIC PROGRAM SPECIALIST - HAIR MACHINE OPERATOR - 08/06/2021 4:50 PM EDT Neurosurgery NATE/Resident [...] Quinteros MD - 08/06/2021 3:58 PM EDT [facility] reconsult Meg Georges is a 56 [...] No results for input(s): LABIRON, TIBC, FERRITIN, URCVHEVJ70, FOLATE, OCCULTBLD in the last 72 hours. [...] concerns. Renateeran Genevieve Quinteros PGY-1 Internal Medicine [place], [place] 3:59 PM 08/06/2021 Associated attestation [...] with appropriate modifications. Leigh Mcintosh MD Gastroenterology [facility], [place], [place] * Seth Stokes MD - 08/06/2021 10:36 AM EDT Images from the original note were not included. [facility] -Progress Note Today's Date and Time: 08/06/2021, [...] view prior to surgicalintervention. Infection Control Recommendations Jonancy Precautions Isolate for Covid until 07-23-21 Antimicrobial [...] through 08-20-21. Patient was transferred back to [facility] on 07-14-21 because of a positive [...] EPIDURAL PHLEGMON performed byAlisia Cevallos DO at [facility] OR CHOLECYSTECTOMY EYE SURGERY [address] shunt for open angle glaucoma. MRI compatible- device is all silicone LAMINECTOMY 07/06/2021 Posterior C1, LEFT C2 RHIZOTOMY, EXPLORATION OF EPIDURAL PHLEGMON PICC INSERTION VASCULAR ACCESS TEAM 07/10/2021 SHOULDER SURGERY right TRACHEOSTOMY 07/30/2021 TRACHEOSTOMY N/A 07/30/2021 TRACHEOTOMY performed by Erica Santiago MD at [facility] OR UPPER GASTROINTESTINAL ENDOSCOPY [...] Friends and Family: Not on file Attends Oriental Orthodox Services: Not on file Active Member of [...] Decision Making-Imaging: No new imaging Medical Decision Zsghfu-Istheywe-Xsscp: SARS-CoV-2, Rapid COVID-19, Rapid Collected: 07/13/21 7035 Result status: Final Resulting lab: [facility] Reference range: Not Detected Value: [...] this assay. Fact sheet for Healthcare Providers: https://www.fda.gov/media/942198/download Fact sheet for Patients: https://www.fda.gov/media/780982/download Methodology: Isothermal Nucleic Acid Amplification Culture, Respiratory Order: [id number] Status: Final result Visible to patient: No (not released) Next appt: Today at 02:30 PM in Radiology (STV MRI RM 1 (1.5T)) Specimen Information: Sputum Aspirated 0 Result Notes Component 07/24/21 6825 Specimen Description .ASPIRATED SPUTUM Direct Exam < 10 EPITHELIAL CELLS/LPF Direct Exam >25 NEUTROPHILS/LPF Direct Exam MANY GRAM NEGATIVE RODS Abnormal Culture KLEBSIELLA AEROGENES HEAVY GROWTH Abnormal Culture NO NORMAL ROB Resulting Agency [facility] [place] Susceptibility Klebsiella aerogenes (1) [...] patient. Please call with questions. Jany Francis, ACADEMIC PROGRAM SPECIALIST - HAIR MACHINE OPERATOR ATTESTATION: I have discussed the case, including pertinent history and exam findings with the ACADEMIC PROGRAM SPECIALIST. I have evaluated the History, physical findings and pictures of the patient and the coffey elements of the encounter have been performed by me. I have reviewed the laboratory data, other diagnostic studies and discussed them with the ACADEMIC PROGRAM SPECIALIST. I have updated the medical record where necessary. I agree with the assessment, plan and orders as documented by the ACADEMIC PROGRAM SPECIALIST. Seth Stokes MD. * Guy Ochoa MD - 08/06/2021 7:27 AM EDT Critical Care Team - Daily Progress Note Date and time: 08/06/2021 7:27 AM Patient's name: Meg Barton Patient's account/billing number: [id number] Patient's Date of : 1965 Age: 56 [...] [facility] from outpatient infusion center whereshe had [...] Date 08/06/21 0000 - 08/06/21 2359 Shift 5380-9330 2996-5212 7930-1148 24 Hour Total INTAKE I.V.(mL/kg) 244.5(4) 244.5(4) [...] Results Component Value Date PHART 7.406 07/06/2021 QUE6BDM 34.8 07/06/2021 PO2ART 279.0 07/06/2021 PEQ5ZOH 21.4 07/06/2021 [id number] 99.4 07/06/2021 FIO2 30.0 08/05/2021 Lactic Acid: [...] No results for input(s): LABIRON, TIBC, FERRITIN, CMFOWPPP63, FOLATE, OCCULTBLD in the last 72 hours. [...] MD Department of Internal Medicine/ Critical care [facility]) 08/06/2021, 7:27 AM Attending Physician Statement [...] this chart was generated using voice recognition [employer] dictation software. Although every effort was made to ensure the accuracy of this automated gas golf cart repairer, some errors in gas golf cart repairer may have occurred. * Chelsea Seaman Sra, MD - 08/05/2021 1:52 PM EDT Images from the original note were not included. Critical Care Team - Daily Progress Note Date and time: 08/05/2021 1:52 PM Patient's name: Meg Georgse Patient's account/billing number: [id number] Patient's Date of : 1965 Age: 56 [...] degree Ulcer prophylaxis: [] PPI Agent, [x] G2Pdjhk, [] Sucralfate, [] Other: Glycemic control: Controlled [...] [facility] from outpatient infusion center whereshe had [...] Date 08/05/21 0000 - 08/05/21 2359 Shift 1048-8129 9654-6750 7660-4987 24 Hour Total INTAKE I.V.(mL/kg) 223.2(3.5) 86.6(1.4) [...] Results Component Value Date PHART 7.406 07/06/2021 CYT6WWE 34.8 07/06/2021 PO2ART 279.0 07/06/2021 WZJ9QOF 21.4 07/06/2021 A1KWSMKI 99.4 07/06/2021 FIO2 30.0 08/05/2021 Lactic Acid: [...] No results for input(s): LABIRON, TIBC, FERRITIN, QZVMNCXU41, FOLATE, OCCULTBLD in the last 72 hours. [...] MD Department of Internal Medicine/ Critical care [facility]) 08/05/2021, 1:52 PM Associated attestation - Aniket Padron MD - 08/05/2021 4:24 PM EDT Attending Physician Statement I have discussed the case of Meg Georges, including pertinent history and exam findings with the resident/fellow/medical student/INPATIENT CODER/PA. I have seen and examined the patient and the coffey elements of the encounter have been performed by me. I agree with the assessment, plan and orders as documented by the resident/fellow/medical student/INPATIENT CODER/PA With changes made to the note as [...] 4:24 PM * Santino Kincaid APRN - [facility] - 08/05/2021 9:38 AM EDT Images from the original note were not included. [facility] -Progress Note Today's Date and Time: 08/05/2021, [...] placed 07/30/21 per ENT Infection Control Recommendations Jonancy Precautions Isolate for Covid until 07-23-21 Antimicrobial [...] through 08-20-21. Patient was transferred back to [facility] on 07-14-21 because of a positive [...] EPIDURAL PHLEGMON performed byAlisia Cevallos DO at [facility] OR CHOLECYSTECTOMY EYE SURGERY [address] shunt for open angle glaucoma. MRI compatible- device is all silicone LAMINECTOMY 07/06/2021 Posterior C1, LEFT C2 RHIZOTOMY, EXPLORATION OF EPIDURAL PHLEGMON PICC INSERTION VASCULAR ACCESS TEAM 07/10/2021 SHOULDER SURGERY right TRACHEOSTOMY 07/30/2021 TRACHEOSTOMY N/A 07/30/2021 TRACHEOTOMY performed by Erica Santiago MD at [facility] OR UPPER GASTROINTESTINAL ENDOSCOPY N/A 07/02/2021 EGD ESOPHAGOGASTRODUODENOSCOPY performed by Hari Wagner MD at [facility] Endoscopy Medications: insulin glargine [...] Friends and Family: Not on file Attends [employer] Services: Not on file Active Member of [...] Decision Making-Imaging: No new imaging Medical Decision Cakhwn-Tfimftkw-Ruffs: SARS-CoV-2, Rapid COVID-19, Rapid Collected: 07/13/21 0355 Result status: Final Resulting lab: [facility] Reference range: Not Detected Value: [...] this assay. Fact sheet for Healthcare Providers: https://www.fda.gov/media/636582/download Fact sheet for Patients: https://www.fda.gov/media/313787/download Methodology: Isothermal Nucleic Acid Amplification Culture, Respiratory Order: [id number] Status: Final result Visible to patient: No (not released) Next appt: Today at 02:30 PM in Radiology (STV MRI RM 1 (1.5T)) Specimen Information: Sputum Aspirated 0 Result Notes Component 07/24/21 4833 Specimen Description .ASPIRATED SPUTUM Direct Exam < 10 EPITHELIAL CELLS/LPF Direct Exam >25 NEUTROPHILS/LPF Direct Exam MANY GRAM NEGATIVE RODS Abnormal Culture KLEBSIELLA AEROGENES HEAVY GROWTH Abnormal Culture NO NORMAL ROB Resulting Agency [facility] - [place] Susceptibility Klebsiella aerogenes (1) Antibiotic [...] were not included. [facility] -Progress Note Today's Date and Time: 08/04/2021, [...] placed 07/30/21 per ENT Infection Control Recommendations Jonancy Precautions Isolate for Covid until 07-23-21 Antimicrobial [...] through 08-20-21. Patient was transferred back to [facility] on 07-14-21 because of a positive [...] EPIDURAL PHLEGMON performed byAlisia Cevallos DO at [facility] OR CHOLECYSTECTOMY EYE SURGERY [address] shunt for open angle glaucoma. MRI compatible- device is all silicone LAMINECTOMY 07/06/2021 Posterior C1, LEFT C2 RHIZOTOMY, EXPLORATION OF EPIDURAL PHLEGMON PICC INSERTION VASCULAR ACCESS TEAM 07/10/2021 SHOULDER SURGERY right TRACHEOSTOMY 07/30/2021 TRACHEOSTOMY N/A 07/30/2021 TRACHEOTOMY performed by Erica Santiago MD at [facility] OR UPPER GASTROINTESTINAL ENDOSCOPY N/A 07/02/2021 EGD ESOPHAGOGASTRODUODENOSCOPY performed by Hari Wagner MD at [facility] Endoscopy Medications: insulin glargine [...] Friends and Family: Not on file Attends [employer] Services: Not on file Active Member of [...] Decision Making-Imaging: No new imaging Medical Decision Qftxea-Cchqucvm-Mjmsi: SARS-CoV-2, Rapid COVID-19, Rapid Collected: 07/13/212306 Result status: Final Resulting lab: [facility] Reference range: Not Detected Value: [...] this assay. Fact sheet for Healthcare Providers: https://www.fda.gov/media/484615/download Fact sheet for Patients: https://www.fda.gov/media/538199/download Methodology: Isothermal Nucleic Acid Amplification Culture, Respiratory Order: [id number] Status: Final result Visible to patient: No (not released) Next appt: Today at 02:30 PM in Radiology (STV MRI RM 1 (1.5T)) Specimen Information: Sputum Aspirated 0 Result Notes Component 07/24/21 6559 Specimen Description .ASPIRATED SPUTUM Direct Exam < 10 EPITHELIAL CELLS/LPF Direct Exam >25 NEUTROPHILS/LPF Direct Exam MANY GRAM NEGATIVE RODS Abnormal Culture KLEBSIELLA AEROGENES HEAVY GROWTH Abnormal Culture NO NORMAL ROB Resulting Agency [facility] - [place] Susceptibility Klebsiella aerogenes (1) Antibiotic [...] EPIDURAL PHLEGMON performed byAlisia Cevallos DO at [facility] OR CHOLECYSTECTOMY EYE SURGERY [address] shunt for open angle glaucoma. MRI compatible- device is all silicone LAMINECTOMY 07/06/2021 Posterior C1, LEFT C2 RHIZOTOMY, EXPLORATION OF EPIDURAL PHLEGMON PICC INSERTION VASCULAR ACCESS TEAM 07/10/2021 SHOULDER SURGERY right TRACHEOSTOMY 07/30/2021 TRACHEOSTOMY N/A 07/30/2021 TRACHEOTOMY performed by Erica Santiago MD at [facility] OR UPPER GASTROINTESTINAL ENDOSCOPY N/A 07/02/2021 EGD ESOPHAGOGASTRODUODENOSCOPY performed by Hari Wagner MD at [facility] Endoscopy FAMILY HISTORY Family [...] in the care of Ms. Georges . [facility] Palliative Care Number [phone] [facility] Palliative Care Number [phone] [facility] Palliative Care Number [phone] Please call with any palliative questions or [...] Skylar Morrow MD 5 mL at 07/14/21 1828 [...] follow up with adult ENT provider in [facility]. Follow-up: Your follow up appointment can be [...] and Dr. Angel Krueger [address] [facility] [address] OPTION 2: [facility] ENT [address] [place] [address], [address] [place] [address] Appointment scheduling: ISRRAEL MCGRATH MD Pediatric Otolaryngology-Head and Neck Surgery [facility] Otolaryngology group Office ph# [phone] Also available in [employer] * Claudine Fisher [...] Patient's name: Meg Georges Patient's account/billing number: [id number] Patient's Date of : 1965 Age: 56 [...] no Ulcer prophylaxis: [x] PPI Agent, [] L8Ojtlv, [] Sucralfate, [] Other: Glycemic control: controlled; [...] [facility] from outpatient infusion center whereshe had [...] INTUBATED, ET TUBE MARKING AT LOWER LIP: [facility] SEDATION: Precedex gtt [] Propofol gtt [] [...] Date 08/04/21 0000 - 08/04/21 2359 Shift 5592-7854 1275-1184 5819-2503 24 Hour Total INTAKE I.V.(mL/kg) 376.1(6) 376.1(6) [...] CO2: 37 (%) Position: Semi-Simon's Humidification Source: [facility] Results Component Value Date PHART 7.406 07/06/2021 JYS3LVY 34.8 07/06/2021 PO2ART 279.0 07/06/2021 ZRY9OUR 21.4 07/06/2021 W3LEIPLH 99.4 07/06/2021 FIO2 30.0 08/03/2021 Lactic Acid: [...] No results for input(s): LABIRON, TIBC, FERRITIN, JBPLUDMB05, FOLATE, OCCULTBLD in the last 72 hours. [...] MD Department of Internal Medicine/ Critical care [facility]) 08/04/2021, 8:43 AM Associated attestation - Aniket Padron MD - 08/04/2021 1:39 PM EDT Attending Physician Statement I have discussed the case of Meg Georges, including pertinent history and exam findings with the resident/fellow/medical student/INPATIENT CODER/PA. I have seen and examined the patient and the coffey elements of the encounter have been performed by me. I agree with the assessment, plan and orders as documented by the resident/fellow/medical student/INPATIENT CODER/PA With changes made to the note as [...] Status: At risk for malnutrition (Comment) (07/30/21 2544) Context: Acute Illness Findings of the 6 clinical characteristics of malnutrition: Energy Intake: No significant decrease in energy intake (with use of TF) Weight Loss: No significant weight loss Body Fat Loss: No significant body fat loss Muscle Mass Loss: Unable to assess Fluid Accumulation: Mild Extremities,Generalized Saturation Equipment Operator Strength: Not Performed Nutrition Assessment: Remains intubated [...] Anthropometric Measures: Height: 5' 5 (165.1 cm) [place] Body Weight (IBW): 125 lbs (57 kg) Admission Body Weight: 133 lb 13.1 oz (60.7 kg) Current Body Weight: 137 lb 9.2 oz (62.4 kg) (08/03, [facility]), 110.1 % IBW. Weight Source: Bed [...] determine Ashwini Felix MS, ALYSSA, LD Contact: [phone] * REBEKA Wills CNP - 08/03/2021 9:57 [...] Pediatric Otolaryngology-Head and Neck Surgery [facility] Otolaryngology group Office ph# [phone] Also available in [employer] * Seth Stokes MD - 08/03/2021 8:39 AM EDT Images from the original note were not included. [facility] -Progress Note Today's Date and Time: 08/03/2021, [...] placed 07/30/21 per ENT Infection Control Recommendations Jonancy Precautions Isolate for Covid until 07-23-21 Antimicrobial [...] through 08-20-21. Patient was transferred back to [facility] on 07-14-21 because of a positive [...] EPIDURAL PHLEGMON performed byAlisia Cevallos DO at [facility] OR CHOLECYSTECTOMY EYE SURGERY [address] shunt for open angle glaucoma. MRI compatible- device is all silicone LAMINECTOMY 07/06/2021 Posterior C1, LEFT C2 RHIZOTOMY, EXPLORATION OF EPIDURAL PHLEGMON PICC INSERTION VASCULAR ACCESS TEAM 07/10/2021 SHOULDER SURGERY right TRACHEOSTOMY 07/30/2021 TRACHEOSTOMY N/A 07/30/2021 TRACHEOTOMY performed by Erica Santiago MD at [facility] OR UPPER GASTROINTESTINAL ENDOSCOPY N/A 07/02/2021 EGD ESOPHAGOGASTRODUODENOSCOPY performed by Hari Wagner MD at [facility] Endoscopy Medications: insulin lispro [...] Friends and Family: Not on file Attends [employer] Services: Not on file Active Member of [...] are unchanged. Suggest ultrasound correlation. Medical Decision Xelvgx-Nvzzyqpy-Vnsou: SARS-CoV-2, Rapid COVID-19, Rapid Collected: 07/13/21 0652 Result status: Final Resulting lab: [facility] Reference range: Not Detected Value: [...] this assay. Fact sheet for Healthcare Providers: https://www.fda.gov/media/365137/download Fact sheet for Patients: https://www.fda.gov/media/353058/download Methodology: Isothermal Nucleic Acid Amplification Culture, Respiratory Order: [id number] Status: Final result Visible to patient: No (not released) Next appt: Today at 02:30 PM in Radiology (STV MRI RM 1 (1.5T)) Specimen Information: Sputum Aspirated 0 Result Notes Component 07/24/21 7759 Specimen Description .ASPIRATED SPUTUM Direct Exam < 10 EPITHELIAL CELLS/LPF Direct Exam >25 NEUTROPHILS/LPF Direct Exam MANY GRAM NEGATIVE RODS Abnormal Culture KLEBSIELLA AEROGENES HEAVY GROWTH Abnormal Culture NO NORMAL ROB Resulting Agency [facility] - [place] Susceptibility Klebsiella aerogenes (1) [...] data were reviewed Discussed with nursing Staff, environmental planner Infection Control and Prevention measures reviewed All prior entries were reviewed Administer medications as ordered Prognosis: Very Guarded Discharge planning reviewed Follow up as outpatient. Thank you for allowing us to participate in the care of this patient. Please call with questions. Jany Francis, ACADEMIC PROGRAM SPECIALIST - HAIR MACHINE OPERATOR ATTESTATION: I have discussed the case, including pertinent history and exam findings with the ACADEMIC PROGRAM SPECIALIST. I have evaluated the History, physical findings and pictures of the patient and the coffey elements of the encounter have been performed by me. I have reviewed the laboratory data, other diagnostic studies and discussed them with the ACADEMIC PROGRAM SPECIALIST. I have updated the medical record where necessary. I agree with the assessment, plan and orders as documented by the ACADEMIC PROGRAM SPECIALIST. Seth Stokes MD. Pager: - Office: * Xin Grove MD - 08/03/2021 7:48 AM EDT Images from the original note were not included. Critical Care Team - Daily Progress Note Date and time: 08/03/2021 7:48 AM Patient's name: Meg Georges Patient's account/billing number: [id number] Patient's Date of : 1965 Age: 56 [...] yes Ulcer prophylaxis: [] PPI Agent, [x] H9Ytwvr, [] Sucralfate, [] Other: Glycemic control: high [...] Date 08/03/21 0000 - 08/03/21 2359 Shift 3595-7131 9718-1568 9624-0841 24 Hour Total INTAKE I.V.(mL/kg) 93.8(1.5) 93.8(1.5) [...] CO2: 30 (%) Position: Semi-Simon's Humidification Source: [facility] Lab Results Component Value Date PHART 7.406 07/06/2021 RDE1ZMX 34.8 07/06/2021 PO2ART 279.0 07/06/2021 RKD7BTQ 21.4 07/06/2021 C0ESXYDA 99.4 07/06/2021 FIO2 30.0 08/03/2021 Lactic Acid: [...] No results for input(s): LABIRON, TIBC, FERRITIN, NXESZXRN03, FOLATE, OCCULTBLD in the last 72 hours. [...] MD Department of Internal Medicine/ Critical care [facility]) 08/03/2021, 7:48 AM Associated attestation - Aniket Padron MD - 08/03/2021 3:44 PM EDT Attending Physician Statement I have discussed the case of Meg Georges, including pertinent history and exam findings with the resident/fellow/medical student/INPATIENT CODER/PA. I have seen and examined the patient and the coffey elements of the encounter have been performed by me. I agree with the assessment, plan and orders as documented by the resident/fellow/medical student/INPATIENT CODER/PA With changes made to the note as [...] cm^3 Wound Healing % 79 Wound Assessment [place];[address]/red;Fibrinous Drainage Amount Scant Drainage Description Serosanguinous Odor [...] Pediatric Otolaryngology-Head and Neck Surgery [facility] Otolaryngology group Office ph# [phone] Also available in [employer] * Seth Stokes MD - 08/02/2021 9:23 AM EDT Images from the original note were not included. [facility] -Progress Note Today's Date and Time: 08/02/2021, [...] placed 07/30/21 per ENT Infection Control Recommendations Jonancy Precautions Isolate for Covid until 07-23-21 Antimicrobial [...] through 08-20-21. Patient was transferred back to [facility] on 07-14-21 because of a positive [...] EPIDURAL PHLEGMON performed byAlisia Cevallos DO at [facility] OR CHOLECYSTECTOMY EYE SURGERY [address] shunt for open angle glaucoma. MRI compatible- device is all silicone LAMINECTOMY 07/06/2021 Posterior C1, LEFT C2 RHIZOTOMY, EXPLORATION OF EPIDURAL PHLEGMON PICC INSERTION VASCULAR ACCESS TEAM 07/10/2021 SHOULDER SURGERY right TRACHEOSTOMY 07/30/2021 TRACHEOSTOMY N/A 07/30/2021 TRACHEOTOMY performed by Erica Santiago MD at [facility] OR UPPER GASTROINTESTINAL ENDOSCOPY N/A 07/02/2021 EGD ESOPHAGOGASTRODUODENOSCOPY performed by Hari Wagner MD at [facility] Endoscopy Medications: insulin lispro [...] Friends and Family: Not on file Attends [employer] Services: Not on file Active Member of [...] are unchanged. Suggest ultrasound correlation. Medical Decision Behurb-Jxwpfvjk-Hsyhd: SARS-CoV-2, Rapid COVID-19, Rapid Collected: 07/13/21 7443 Result status: Final [facility] Reference range: Not Detected [...] this assay. Fact sheet for Healthcare Providers: https://www.fda.gov/media/886785/download Fact sheet for Patients: https://www.fda.gov/media/165055/download Methodology: Isothermal Nucleic Acid Amplification Culture, Respiratory Order: [id number] Status: Final result Visible to patient: No (not released) Next appt: Today at 02:30 PM in Radiology (STV MRI RM 1 (1.5T)) Specimen Information: Sputum Aspirated 0 Result Notes Component 07/24/21 4085 Specimen Description .ASPIRATED SPUTUM Direct Exam < 10 EPITHELIAL CELLS/LPF Direct Exam >25 NEUTROPHILS/LPF Direct Exam MANY GRAM NEGATIVE RODS Abnormal Culture KLEBSIELLA AEROGENES HEAVY GROWTH Abnormal Culture NO NORMAL ROB Resulting Agency [facility] [place] Susceptibility Klebsiella aerogenes (1) Antibiotic Interpretation Microscan [...] data were reviewed Discussed with nursing Staff, environmental planner Infection Control and Prevention measures reviewed All prior entries were reviewed Administer medications as ordered Prognosis: Very Guarded Discharge planning reviewed Follow up as outpatient. Thank you for allowing us to participate in the care of this patient. Please call with questions. Jany Francis, ACADEMIC PROGRAM SPECIALIST - HAIR MACHINE OPERATOR ATTESTATION: I have discussed the case, including pertinent history and exam findings with the ACADEMIC PROGRAM SPECIALIST. I have evaluated the History, physical findings and pictures of the patient and the coffey elements of the encounter have been performed by me. I have reviewed the laboratory data, other diagnostic studies and discussed them with the ACADEMIC PROGRAM SPECIALIST. I have updated the medical record where necessary. I agree with the assessment, plan and orders as documented by the ACADEMIC PROGRAM SPECIALIST. Seth Stokes MD. Pager: - Office: * Keri Hart MD - 08/02/2021 7:47 AM EDT Critical Care Team - Daily Progress Note Date and time: 08/02/2021 7:50 AM Patient's name: Meg Georges Patient's account/billing number: [id number] Patient's Date of : 1965 Age: 56 [...] yes Ulcer prophylaxis: [] PPI Agent, [x] D2Nraef, [] Sucralfate, [] Other: Glycemic control: high insulin Spontaneous breathing trial: no Bowel regimen/urine output: milk of mag Indwelling catheter/lines: yes De-escalation: yes AWAKE & FOLLOWING COMMANDS: [x] No [] Yes CURRENT VENTILATION STATUS: [x] Ventilator [] BIPAP [] Nasal Cannula [] Room Air IF INTUBATED, ET TUBE MARKING AT LOWER LIP: [facility] SEDATION: Fentanyl gtt [x] Propofol gtt [] [...] Date 08/02/21 0000 - 08/02/21 2359 Shift 2096-5168 2735-3796 9269-1710 24 Hour Total INTAKE I.V.(mL/kg) 109.3(1.8) 109.3(1.8) [...] CO2: 32 (%) Position: Semi-Simon's Humidification Source: [facility] Lab Results Component Value Date PHART 7.406 07/06/2021 FLP0USP 34.8 07/06/2021 PO2ART 279.0 07/06/2021 BHO1NLE 21.4 07/06/2021 J1WWRLKF 99.4 07/06/2021 FIO2 30.0 08/02/2021 Lactic Acid: [...] No results for input(s): LABIRON, TIBC, FERRITIN, GYCPHDNZ93, FOLATE, OCCULTBLD in the last 72 hours. [...] MD Department of Internal Medicine/ Critical care [facility]) 08/02/2021, 7:50 AM Associated attestation - Aniket Padron MD - 08/02/2021 4:40 PM EDT Attending Physician Statement I have discussed the case of Meg Georges, including pertinent history and exam findings with the resident/fellow/medical student/INPATIENT CODER/PA. I have seen and examined the patient and the coffey elements of the encounter have been performed by me. I agree with the assessment, plan and orders as documented by the resident/fellow/medical student/INPATIENT CODER/PA With changes made to the note as [...] Pediatric Otolaryngology-Head and Neck Surgery [facility] Otolaryngology group Office ph# [phone] Also available in [employer] * Ashwini Perales, ACADEMIC PROGRAM SPECIALIST - INPATIENT CODER - 08/01/2021 11:00 AM EDT Images from [...] will continue to follow. Healthcare power of banking attorney placed on patient's chart. OVERNIGHT EVENTS: [...] EPIDURAL PHLEGMON performed byAlisia Cevallos DO at [facility] OR CHOLECYSTECTOMY EYE SURGERY [address] shunt for open angle glaucoma. MRI compatible- device is all silicone LAMINECTOMY 07/06/2021 Posterior C1, LEFT C2 RHIZOTOMY, EXPLORATION OF EPIDURAL PHLEGMON PICC INSERTION VASCULAR ACCESS TEAM 07/10/2021 SHOULDER SURGERY right TRACHEOSTOMY 07/30/2021 TRACHEOSTOMY N/A 07/30/2021 TRACHEOTOMY performed by Erica Santiago MD at [facility] OR UPPER GASTROINTESTINAL ENDOSCOPY N/A 07/02/2021 EGD ESOPHAGOGASTRODUODENOSCOPY performed by Hari Wagner MD at [facility] Endoscopy FAMILY HISTORY Family [...] Active Problems: CIDP (chronic inflammatory demyelinating polyneuropathy) ([facility]) Bacteremia Hypothyroidism Hypokalemia Type 2 diabetes mellitus with diabetic polyneuropathy ([facility]) Primary hypertension Metabolic encephalopathy MSSA (methicillin susceptible Staphylococcus aureus) septicemia ([facility]) CRP elevated Bandemia Septic arthritis of cervical spine ([facility]) 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 Georges . Palliative care number [phone] Please call with any palliative questions or concerns. Palliative Care Team is available via perfect serve or via phone. * Seth Stokes MD - 08/01/2021 9:39 AM EDT Images from the original note were not included. [facility] -Progress Note Today's Date and Time: 08/01/2021, [...] placed 07/30/21 per ENT Infection Control Recommendations Jonancy Precautions Isolate for Covid until 07-23-21 Antimicrobial [...] through 08-20-21. Patient was transferred back to [facility] on 07-14-21 because of a positive [...] EPIDURAL PHLEGMON performed byAlisia Cevallos DO at [facility] OR CHOLECYSTECTOMY EYE SURGERY [address] shunt for open angle glaucoma. MRI compatible- device is all silicone LAMINECTOMY 07/06/2021 Posterior C1, LEFT C2 RHIZOTOMY, EXPLORATION OF EPIDURAL PHLEGMON PICC INSERTION VASCULAR ACCESS TEAM 07/10/2021 SHOULDER SURGERY right TRACHEOSTOMY 07/30/2021 TRACHEOSTOMY N/A 07/30/2021 TRACHEOTOMY performed by Erica Santiago MD at [facility] OR UPPER GASTROINTESTINAL ENDOSCOPY N/A 07/02/2021 EGD ESOPHAGOGASTRODUODENOSCOPY performed by Hari Wagner MD at [facility] Endoscopy Medications: insulin lispro [...] Friends and Family: Not on file Attends Oriental [employer] Services: Not on file Active Member of [...] are unchanged. Suggest ultrasound correlation. Medical Decision Tcqnvo-Rydaqndo-Nwney: SARS-CoV-2, Rapid COVID-19, Rapid Collected: 07/13/21 7723 Result status: Final Resulting lab[email or web address] Reference range: Not Detected Value: DETECTED [...] this assay. Fact sheet for Healthcare Providers: https://www.fda.gov/media/835587/download Fact sheet for Patients: https://www.fda.gov/media/133284/download Methodology: Isothermal Nucleic Acid Amplification Culture, Respiratory Order: [id number] Status: Final result Visible to patient: No (not released) Next appt: Today at 02:30 PM in Radiology (STV MRI RM 1 (1.5T)) Specimen Information: Sputum Aspirated 0 Result Notes Component 07/24/21 7206 Specimen Description .ASPIRATED SPUTUM Direct Exam < 10 EPITHELIAL CELLS/LPF Direct Exam >25 NEUTROPHILS/LPF Direct Exam MANY GRAM NEGATIVE RODS Abnormal Culture KLEBSIELLA AEROGENES HEAVY GROWTH Abnormal Culture NO NORMAL ROB Resulting Agency [facility] [employer] [facility] [place] Susceptibility Klebsiella aerogenes (1) Antibiotic [...] data were reviewed Discussed with nursing Staff, environmental planner Infection Control and Prevention measures reviewed All prior entries were reviewed Administer medications as ordered Prognosis: Very Guarded Discharge planning reviewed Follow up as outpatient. Thank you for allowing us to participate in the care of this patient. Please call with questions. Jany Francis, ACADEMIC PROGRAM SPECIALIST - HAIR MACHINE OPERATOR ATTESTATION: I have discussed the case, including pertinent history and exam findings with the ACADEMIC PROGRAM SPECIALIST. I have evaluated the History, physical findings and pictures of the patient and the coffey elements of the encounter have been performed by me. I have reviewed the laboratory data, other diagnostic studies and discussed them with the ACADEMIC PROGRAM SPECIALIST. I have updated the medical record where necessary. I agree with the assessment, plan and orders as documented by the ACADEMIC PROGRAM SPECIALIST. Seth Stokes MD. Pager: - Office: * Keri Hart MD - 08/01/2021 8:04 AM EDT Critical Care Team - Daily Progress Note Date and time: 08/01/2021 8:07 AM Patient's name: Meg Barton Patient's account/billing number: [id number] Patient's Date of : 1965 Age: 56 [...] yes Ulcer prophylaxis: [] PPI Agent, [x] B5Yjzun, [] Sucralfate, [] Other: Glycemic control: medium dose insulin Spontaneous breathing trial: yes Bowel regimen/urine output: milk of mag Indwelling catheter/lines: yes De-escalation: yes AWAKE & FOLLOWING COMMANDS: [x] No [] Yes CURRENT VENTILATION STATUS: [x] Ventilator [] BIPAP [] Nasal Cannula [] Room Air IF INTUBATED, ET TUBE MARKING AT LOWER LIP: [facility] SEDATION: Fentanyl gtt [x] Propofol gtt [] [...] Date 08/01/21 0000 - 08/01/21 2359 Shift 0570-1075 1449-2247 5427-7545 24 Hour Total INTAKE I.V.(mL/kg) 159.6(2.6) 159.6(2.6) [...] CO2: 32 (%) Position: Semi-Simon's Humidification Source: [facility] Lab Results Component Value Date PHART 7.406 07/06/2021 KJW1SMO 34.8 07/06/2021 PO2ART 279.0 07/06/2021 ICF9KMB 21.4 07/06/2021 O4MTHGTQ 99.4 07/06/2021 FIO2 30.0 07/30/2021 Lactic Acid: [...] No results for input(s): LABIRON, TIBC, FERRITIN, BUSCBZTY60, FOLATE, OCCULTBLD in the last 72 hours. [...] MD Department of Internal Medicine/ Critical care [facility]) 08/01/2021, 8:07 AM Associated attestation - Aniket Padron MD - 08/01/2021 7:15 PM EDT Attending Physician Statement I have discussed the case of Meg Georges, including pertinent history and exam findings with the resident/fellow/medical student/INPATIENT CODER/PA. I have seen and examined the patient and the coffey elements of the encounter have been performed by me. I agree with the assessment, plan and orders as documented by the resident/fellow/medical student/INPATIENT CODER/PA With changes made to the note as [...] were not included. [facility] -Progress Note Today's Date and Time: 07/31/2021, [...] placed 07/30/21 per ENT Infection Control Recommendations Jonancy Precautions Isolate for Covid until 07-23-21 Antimicrobial [...] through 08-20-21. Patient was transferred back to [facility] on 07-14-21 because of a positive [...] EPIDURAL PHLEGMON performed byAlisia Cevallos DO at [facility] OR CHOLECYSTECTOMY EYE SURGERY [address] shunt for open angle glaucoma. MRI compatible- device is all silicone LAMINECTOMY 07/06/2021 Posterior C1, LEFT C2 RHIZOTOMY, EXPLORATION OF EPIDURAL PHLEGMON PICC INSERTION VASCULAR ACCESS TEAM 07/10/2021 SHOULDER SURGERY right TRACHEOSTOMY 07/30/2021 TRACHEOSTOMY N/A 07/30/2021 TRACHEOTOMY performed by Erica Santiago MD at [facility] OR UPPER GASTROINTESTINAL ENDOSCOPY N/A 07/02/2021 EGD ESOPHAGOGASTRODUODENOSCOPY performed by Hari Wagner MD at [facility] Endoscopy Medications: insulin lispro [...] Friends and Family: Not on file Attends [employer] Services: Not on file Active Member of [...] are unchanged. Suggest ultrasound correlation. Medical Decision Oopncf-Jmucyeln-Lxddf: SARS-CoV-2, Rapid COVID-19, Rapid Collected: 07/13/21 3826 Result status: Final Resulting lab: [facility] Reference range: Not Detected Value: [...] this assay. Fact sheet for Healthcare Providers: https://www.fda.gov/media/234906/download Fact sheet for Patients: https://www.fda.gov/media/560474/download Methodology: Isothermal Nucleic Acid Amplification Culture, Respiratory Order: [id number] Status: Final result Visible to patient: No (not released) Next appt: Today at 02:30 PM in Radiology (STV MRI RM 1 (1.5T)) Specimen Information: Sputum Aspirated 0 Result Notes Component 07/24/21 1527 Specimen Description .ASPIRATED SPUTUM Direct Exam < 10 EPITHELIAL CELLS/LPF Direct Exam >25 NEUTROPHILS/LPF Direct Exam MANY GRAM NEGATIVE RODS Abnormal Culture KLEBSIELLA AEROGENES HEAVY GROWTH Abnormal Culture NO NORMAL ROB Resulting [place] [facility] [place]ceptibility Klebsiella aerogenes (1) Antibiotic Interpretation Microscan [...] data were reviewed Discussed with nursing Staff, environmental planner Infection Control and Prevention measures reviewed All prior entries were reviewed Administer medications as ordered Prognosis: Very Guarded Discharge planning reviewed Follow up as outpatient. Thank you for allowing us to participate in the care of this patient. Please call with questions. Jany Francis, ACADEMIC PROGRAM SPECIALIST - HAIR MACHINE OPERATOR ATTESTATION: I have discussed the case, including pertinent history and exam findings with the ACADEMIC PROGRAM SPECIALIST. I have evaluated the History, physical findings and pictures of the patient and the coffey elements of the encounter have been performed by me. I have reviewed the laboratory data, other diagnostic studies and discussed them with the ACADEMIC PROGRAM SPECIALIST. I have updated the medical record where necessary. I agree with the assessment, plan and orders as documented by the ACADEMIC PROGRAM SPECIALIST. Seth Stokes MD. Pager: - Office: * Nany Emmanuel OT - 07/31/2021 11:29 AM EDT Images from the original note were not included. Occupational Therapy [facility] Occupational Therapy Not Seen Note DATE: 07/31/2021 NAME: Meg Georges : 1965 Patient not seen this date for Occupational Therapy due to: Patient is not appropriate for active participation in OT evaluation/treatment at this time d/t intubation, sedation and not following commands. Next Scheduled Treatment: 08/02/2021 * Sonya Barber, ACADEMIC PROGRAM SPECIALIST - HAIR MACHINE OPERATOR - 07/31/2021 8:25 AM EDT ENT/OTOLARYNGOLOGY PROGRESS [...] injection 10 mg 10 mg IntraVENous Once Sklyar Coyle MD carvedilol (COREG) tablet 25 mg [...] 07/31/21723 sodium chloride flush 0.9 % inject [facility] Work Phone: 1(106) 939-215806-02-2022 Hospital Discharge instructions* Discharge Instr - TEX* [...] Contact: Hina Thomas [facility] Mobile Relation: Brother/Sister Past Surgical History: Past Surgical History: Procedure Laterality Date ACHILLES TENDON SURGERY left BACK SURGERY L 4 and 5 1995, 1996 CERVICAL FUSION N/A 07/06/2021 POSTERIOR CERVICAL C1 LAMINECTOMY. LEFT C2 RHIZOTOMY, EXPLORATION OF EPIDURAL PHLEGMON performed byAlisia Cevallos DO at [facility] OR CHOLECYSTECTOMY EYE SURGERY [address] shunt for open angle glaucoma. MRI compatible- device is all silicone LAMINECTOMY 07/06/2021 Posterior C1, LEFT C2 RHIZOTOMY, EXPLORATION OF EPIDURAL PHLEGMON PICC INSERTION VASCULAR ACCESS TEAM 07/10/2021 SHOULDER SURGERY right TRACHEOSTOMY 07/30/2021 TRACHEOSTOMY N/A 07/30/2021 TRACHEOTOMY performed by Erica Santiago MD at [facility] OR UPPER GASTROINTESTINAL ENDOSCOPY N/A 07/02/2021 EGD ESOPHAGOGASTRODUODENOSCOPY performed by Hari Wagner MD at [facility] Endoscopy Immunization History: There is no immunization history on file for this patient. Active Problems: Patient Active Problem List Diagnosis Code Cellulitis of left finger L03.012 Altered mental state R41.82 Encephalitis G04.90 Encephalopathy G93.40 CIDP (chronic inflammatory demyelinating polyneuropathy) ([facility]) G61.81 Sepsis ([facility]) A41.9 Bacteremia R78.81 Hypothyroidism E03.9 Hypokalemia E87.6 Type 2 diabetes mellitus with diabetic polyneuropathy ([facility]) E11.42 Primary hypertension I10 Upper GI bleed K92.2 Non-intractable vomiting R11.10 Unintentional weight loss R63.4 Metabolic encephalopathy G93.41 MSSA (methicillin susceptible Staphylococcus aureus) septicemia ([facility]) A41.01 CRP elevated R79.82 Bandemia D72.825 Allergy to multiple antibiotics Z88.1 Pyogenic inflammation of bone ([facility]) M86.9 Acute intractable headache R51.9 Septic arthritis of cervical spine ([facility]) M46.52 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 G06.1 COVID U07.1 Hypomagnesemia E83.42 Normocytic anemia D64.9 Acute respiratory failure with hypoxemia ([facility]) J96.01 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 Update Admission [...] PCP as outpatient. [facility] Work Phone: 1(574) 115-236505-28-2022 History of Present illness Narrative* Kati Villarreal [...] sister, Hina with status. Pt accepted to [facility] pending. documented in this encounterBON [facility]! [facility] Work Phone: 1(434) 759-430905-24-2022 History of Present illness Narrative* Vic Padilla [...] EDT Speech Language Pathology Speech Language Pathology [facility] Cognitive/Dysphagia Treatment Note Date: 07/10/2021 Patient s Name: Meg Georges Patient Active Problem List Diagnosis Code Cellulitis of left finger L03.012 Altered mental state R41.82 Encephalitis G04.90 Encephalopathy G93.40 CIDP (chronic inflammatory demyelinating polyneuropathy) ([facility]) G61.81 Sepsis ([facility]) A41.9 Bacteremia R78.81 Hypothyroidism E03.9 Hypokalemia E87.6 Type 2 diabetes mellitus with diabetic polyneuropathy ([facility]) E11.42 Primary hypertension I10 Upper GI bleed K92.2 Non-intractable vomiting R11.10 Unintentional weight loss R63.4 Acute metabolic encephalopathy G93.41 MSSA (methicillin susceptible Staphylococcus aureus) septicemia ([facility]) A41.01 CRP elevated R79.82 Bandemia D72.825 Allergy to multiple antibiotics Z88.1 Pyogenic inflammation of bone ([facility]) M86.9 Acute intractable headache R51.9 Acute osteomyelitis of cervical spine ([facility]) M46.22 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 G06.1 Pain: 0/10 Cognitive Treatment Treatment time: 4162-9861 Subjective: [] Alert [x] Cooperative [] Confused [...] recommended at discharge. Completed by Chaitanya Pratt Airset Caster Clinician Co-signed byHina Sawyer M.S. CCC/FINANCIAL SALES CONSULTANT * Rufus Argueta MD - 07/10/2021 7:11 AM EDT Images from the original note were not included. [facility] Internal Medicine Teaching Residency Program Inpatient Daily Progress Note Patient: Meg Georges Date of : 1965 Acct: [id number] Room: 0146/0146-01 Admit date: 06/28/2021 Today's date: [...] neuropathy follows neurology. Presented to ED from detention, found confused outside. Imaging negative. She complains [...] PLAN Assessment and Plan: Principal Problem: Sepsis ([facility]) Active Problems: Altered mental state Encephalitis Encephalopathy CIDP (chronic inflammatory demyelinating polyneuropathy) ([facility]) Bacteremia Hypothyroidism Hypokalemia Type 2 diabetes mellitus with diabetic polyneuropathy ([facility]) Primary hypertension Upper GI bleed Non-intractable vomiting Unintentional weight loss Acute metabolic encephalopathy MSSA (methicillin susceptible Staphylococcus aureus) septicemia ([facility]) CRP elevated Bandemia Allergy to multiple antibiotics Pyogenic inflammation of bone ([facility]) Acute intractable headache Acute osteomyelitis of cervical spine ([facility]) Abscess in epidural space of [...] antihypertensives. Elevated troponins: Downtrended likely type II NH Hypokalemia: Repeat potassium level and replace if needed Left Vocal cord paralysis: Ongoing x 1 month. ENT on board. Plan for injection laryngoplasty for voice/swallowing improvement at some point. Passed swallow study. Diet: Easy to chew DVT ppx : Lovenox held GI ppx: None PT/OT/SW: Consulted Discharge Planning: In process Rufus Argueta MD Internal Medicine Resident, PGY- 1 [facility]; [place], [place] 07/10/2021, 7:18 AM Associated attestation - [...] were not included. [facility] - Infectious diseases evaluation admission date 06/28/2021 [...] line due to nafciline Infection Control Recommendations Jonancy Precautions Contact Isolation Antimicrobial Stewardship Recommendations Simplification of therapy Targeted therapy History of Present Illness: Initial history: Meg Georges is a 56 y.o.-year-old female presented to the ED for altered mental status. Patient iscurrently admitted under neurology service. Patient presented from a detention after an episode of confusion overnight where she was found wandering outside her detention. She had CT head done at outside [...] [facility] her IvIg through a periph [...] EPIDURAL PHLEGMON performed byAlisia Cevallos DO at [facility] OR CHOLECYSTECTOMY EYE SURGERY [address] shunt for open angle glaucoma. MRI compatible- device is all silicone LAMINECTOMY 07/06/2021 Posterior C1, LEFT C2 RHIZOTOMY, EXPLORATION OF EPIDURAL PHLEGMON SHOULDER SURGERY right UPPER GASTROINTESTINAL ENDOSCOPY N/A 07/02/2021 EGD ESOPHAGOGASTRODUODENOSCOPY performed by Hari Wagner MD at [facility] Endoscopy Medications: levothyroxine 100 [...] Friends and Family: Not on file Attends Oriental [employer] Services: Not on file Active Member of [...] Crowe MD Office: Perfect serve / office [phone] * Kam Loera, ACADEMIC PROGRAM SPECIALIST - HAIR MACHINE OPERATOR - 07/09/2021 3:43 PM EDT Neurosurgery NATE/Resident [...] 120 (H) 06/28/2021 Culture, Anaerobic and Aerobic [[id number]] Collected: 07/06/212140 Updated: 07/09/21730 Specimen Type: Swab [...] EDT Speech Language Pathology Speech Language Pathology [facility] Cognitive Treatment Note Date: 07/09/2021 Patient s Name: Meg Georges Diagnosis: Patient Active Problem List Diagnosis Code Cellulitis of left finger L03.012 Altered mental state R41.82 Encephalitis G04.90 Encephalopathy G93.40 CIDP (chronic inflammatory demyelinating polyneuropathy) ([facility]) G61.81 Sepsis ([facility]) A41.9 Bacteremia R78.81 Hypothyroidism E03.9 Hypokalemia E87.6 Type 2 diabetes mellitus with diabetic polyneuropathy ([facility]) E11.42 Primary hypertension I10 Upper GI bleed K92.2 Non-intractable vomiting R11.10 Unintentional weight loss R63.4 Acute metabolic encephalopathy G93.41 MSSA (methicillin susceptible Staphylococcus aureus) septicemia ([facility]) A41.01 CRP elevated R79.82 Bandemia D72.825 Allergy to multiple antibiotics Z88.1 Pyogenic inflammation of bone ([facility]) M86.9 Acute intractable headache R51.9 Acute osteomyelitis of cervical spine ([facility]) M46.22 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 G06.1 Pain: 8/10 Cognitive Treatment Treatment time: 7218-2364 Subjective: [x] Alert [x] Cooperative [] Confused [] Agitated [] Lethargic Objective/Assessment: Recall: Delayed recall; 1/4 increased to 2/4 with min verbal cue, 1/4 increased to 3/4 with min verbal cues Word list retention: Word placement; 3/ increased to 9/ with repetitions Functional memory: Paragraph facts; 3/14 increased to 8/14 with repetitions and min verbal cue Problem Solving/Reasoning: Category members: Novelty; 2/8 increased to 4/8 with min-mod verbal [...] recommended at discharge. Completed by Chaitanya Pratt Airset Caster Clinician Co-signed by Hina Sawyer M.S. CCC/FINANCIAL SALES CONSULTANT * Franck Burnham, SQL ANALYST - 07/09/2021 10:11 AM EDT Physical Therapy Facility/Department: [address] [place] Daily Treatment Note Name: [...] progress notes indicate needs to mobilize . [place] thick liquids. Documentation of vocal cord paralysis. [...] from the original note were not included. [facility] Internal Medicine Teaching Residency Program Inpatient Daily Progress Note Patient: Meg Georges Date of : 1965 Acct: [id number] Room: [facility]0146-01 Admit date: 06/28/2021 Today's date: 07/09/21 [...] neuropathy follows neurology. Presented to ED from detention, found confused outside. Imaging negative. She complains [...] PLAN Assessment and Plan: Principal Problem: Sepsis ([facility]) Active Problems: Altered mental state Encephalitis Encephalopathy CIDP (chronic inflammatory demyelinating polyneuropathy) ([facility]) Bacteremia Hypothyroidism Hypokalemia Type 2 diabetes mellitus with diabetic polyneuropathy ([facility]) Primary hypertension Upper GI bleed Non-intractable vomiting Unintentional weight loss Acute metabolic encephalopathy MSSA (methicillin susceptible Staphylococcus aureus) septicemia ([facility]) CRP elevated Bandemia Allergy to multiple antibiotics Pyogenic inflammation of bone ([facility]) Acute intractable headache Acute osteomyelitis of cervical spine ([facility]) Abscess in epidural space of [...] antihypertensives. Elevated troponins: Downtrended likely type II NH Hypokalemia: Repeat potassium level and replace if needed Left Vocal cord paralysis: Ongoing x 1 month. ENT on board. Plan for injection laryngoplasty for voice/swallowing improvement at some point. Passed swallow study. Diet: Easy to chew DVT ppx : Lovenox held GI ppx: None PT/OT/SW: Consulted Discharge Planning: In process Clark Iglesias MD Internal Medicine Resident, PGY-1 [facility]; [place], [place] 7:13 AM 07/09/2021 Please note that part of this chart was generated using voice recognition dictation software. Although every effort was made to ensure the accuracy of this automated gas golf cart repairer, some errors in gas golf cart repairer may have occurred. Associated attestation - Johnny [...] by all services * Kam Lionel Loera, ACADEMIC PROGRAM SPECIALIST - HAIR MACHINE OPERATOR - 07/08/2021 11:09 AM EDT Neurosurgery NATE/Resident [...] 120 (H) 06/28/2021 Culture, Anaerobic and Aerobic [[id number]] Collected: 07/06/212140 Updated: 07/08/21820 Specimen Type: Swab [...] infection Jose Alfredo Patiño DO Neurosurgery O: [phone] C: [phone] * Edel Chapman, PT - 07/08/2021 9:44 AM EDT Physical Therapy Facility/Department: [address] [place] Physical Therapy Reassessment Name: [...] progress notes indicate needs to mobilize . [place] thick liquids. Documentation of vocal cord paralysis. 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 [facility] Score [facility] Inpatient Mobility Raw Score : 14 (07/08/21915) [facility] Inpatient T-Scale Score : 38.1 (07/08/21915) Mobility Inpatient CMS 0-100% Score: 61.29 (07/08/21915) Mobility Inpatient [facility] G-Code Modifier : CL (07/08/21915) Goals Short [...] from the original note were not included. [facility] Internal Medicine Teaching Residency Program Inpatient Daily Progress Note Patient: Meg Georges Date of : 1965 Acct: [id number] Room: 0146/0146-01 Admit date: 06/28/2021 Today's date: [...] neuropathy follows neurology. Presented to ED from detention, found confused outside. Imaging negative. She complains [...] Encephalitis Encephalopathy CIDP (chronic inflammatory demyelinating polyneuropathy) ([facility]) Bacteremia Hypothyroidism Hypokalemia Type 2 [...] antihypertensives. Elevated troponins: Downtrended likely type II NH Hypokalemia: Repeat potassium level and replace if needed Left Vocal cord paralysis: Ongoing x 1 month. ENT on board. Plan for injection laryngoplasty for voice/swallowing improvement at some point. Passed swallow study. Diet: Easy to chew DVT ppx : Lovenox held GI ppx: None PT/OT/SW: Consulted Discharge Planning: In process Clark Iglesias MD Internal Medicine Resident, PGY-1 [facility]; [place], [place] 7:24 AM 07/08/2021 Please note that part of this chart was generated using voice recognition dictation software. Although every effort was made to ensure the accuracy of this automated gas golf cart repairer, some errors in gas golf cart repairer may have occurred. Associated attestation - Johnny [...] were not included. [facility] - Infectious diseases evaluation admission date 06/28/2021 [...] the rise despite tx Infection Control Recommendations Jonancy Precautions Contact Isolation Antimicrobial Stewardship Recommendations Simplification of therapy Targeted therapy History of Present Illness: Initial history: Meg Georges is a 56 y.o.-year-old female presented to the ED for altered mental status. Patient iscurrently admitted under neurology service. Patient presented from a detention after an episode of confusion overnight where she was found wandering outside her detention. She had CT head done at outside [...] [facility] through a periph [...] performed by Hari Wagner MD at [facility] Endoscopy Medications: sodium chloride [...] Friends and Family: Not on file Attends Oriental Orthodox Services: Not on file Active Member of [...] Crowe MD Office: Perfect serve / office [phone] * Andrea Morel APRN - [facility] - 07/07/2021 12:11 PM EDT Neurology Nurse [...] who was admitted as a transfer from [facility] ED on 06/28/2021 for AMS. As per medical records, patient was found wandering outside her detention. She was taken to [facility] ED with acute lethargy and confusion. Patient received Narcan with no improvement. Patient was evaluated by Dr. Helton through telestroke; NIH score was 1. CT head-motion degraded but no obvious acute stroke. Patient was transferred to [facility] for further evaluation. She was initially [...] performed by Hari Wagner MD at [facility] Endoscopy PHYSICAL EXAM: Blood [...] TSH 0.15 (L) 06/28/2021 INR 1.2 06/28/2021 [id number] 06/28/2016 LABA1C 9.4 (H) 06/28/2021 LABMICR [...] to ensure the accuracy of this automated gas golf cart repairer, some errors in gas golf cart repairer may have occurred. * REBEKA Uriostegui CNP [...] 120 (H) 06/28/2021 Culture, Anaerobic and Aerobic [[id number]] Collected: 07/06/212140 Updated: 07/06/212331 Specimen Type: Swab [...] Therapies Jose Alfredo Patiño DO Neurosurgery O: [phone] C: [phone] * Rufus Argueta MD - 07/07/2021 7:15 AM EDT Images from the original note were not included. [facility] Internal Medicine Teaching Residency Program Inpatient Daily Progress Note Patient: Meg Georges Date of : 1965 Acct: [id number] Room: [address] [place] [address]- Admit date: 06/28/2021 Today's date: 07/07/21 Number [...] neuropathy follows neurology. Presented to ED from detention, found confused outside. Imaging negative. She complains [...] mL, PRN tiZANidine, 2 mg, Q8H PRN emsgfhbluc-hbkmbrewtkqdz-utgdlknl, 1 tablet, Q4H PRN hydrALAZINE, 10 mg, [...] antihypertensives. Elevated troponins: Downtrended likely type II NH Hypokalemia: K+ 3.9 today. Repeat potassium level and replace if needed Left Vocal cord paralysis: Ongoing x 1 month. ENT on board. Plan for injection laryngoplasty for voice/swallowing improvement at some point. Passed swallow study. Rufus Argueta MD Internal Medicine Resident, PGY- 1 [facility]; [place], [place] 07/07/2021, 7:16 AM Associated attestation - [...] original note were not included. Occupational Therapy [facility] Occupational Therapy Not Seen Note DATE: 07/06/2021 NAME: Meg Georges : 1965 Patient not seen this date for Occupational Therapy due to: Surgery/Procedure: POSTERIOR CERVICAL C1-2 LAMINECTOMY Next Scheduled Treatment: 07/07 * Chaitanya Pratt - 07/06/2021 11:50 AM EDT Speech Language Pathology Speech Language Pathology [facility] Cognitive/Dysphagia Treatment Note Date: 07/06/2021 Patient s Name: Meg Georges Diagnosis: Patient Active Problem List Diagnosis Code Cellulitis of left finger L03.012 Altered mental state R41.82 Encephalitis G04.90 Encephalopathy G93.40 CIDP (chronic inflammatory demyelinating polyneuropathy) ([facility]) G61.81 Sepsis ([facility]) A41.9 Bacteremia R78.81 Hypothyroidism E03.9 Hypokalemia E87.6 Type 2 diabetes mellitus with diabetic polyneuropathy ([facility]) E11.42 Primary hypertension I10 Upper GI bleed K92.2 Non-intractable vomiting R11.10 Unintentional weight loss R63.4 Acute metabolic encephalopathy G93.41 MSSA (methicillin susceptible Staphylococcus aureus) septicemia ([facility]) A41.01 Elevated C-reactive protein (CRP) R79.82 Bandemia D72.825 Allergy to multiple antibiotics Z88.1 Pyogenic inflammation of bone ([facility]) M86.9 Acute intractable headache R51.9 [...] 12/12 with min verbal cues Category members: Novelty; 8/10 increased to 10/10 with min verbal cues Wrong category: Novelty; 5/10 increased to 10/10 with repetitions and [...] recommended at discharge. Completed by Chaitanya Pratt Airset Caster Clinician Co-signed by Robbie Mckeon M.A.CCC/FINANCIAL SALES CONSULTANT * Meka T Aouad, MD - 07/06/2021 11:03 AM EDT Images from the original note were not included. [facility] - Infectious diseases evaluation admission date 06/28/2021 [...] the rise despite tx Infection Control Recommendations Jonancy Precautions Contact Isolation Antimicrobial Stewardship Recommendations Simplification of therapy Targeted therapy History of Present Illness: Initial history: Meg Georges is a 56 y.o.-year-old female presented to the ED for altered mental status. Patient iscurrently admitted under neurology service. Patient presented from a detention after an episode of confusion overnight where she was found wandering outside her detention. She had CT head done at outside [...] [facility] She gets her IvIg through a periph [...] performed by Hari Wagner MD at [facility] Endoscopy Medications: sodium chloride [...] Friends and Family: Not on file Attends Oriental Orthodox Services: Not on file Active Member of [...] Crowe MD Office: Perfect serve / office [phone] * Jaspal Bonner MD - 07/06/2021 7:56 AM EDT [facility] Neurology IN-PATIENT SERVICE [facility] Progress Note Date: 07/06/2021 Patient name: Meg Georges Date of admission: 06/28/2021 11:59 AM Account: [id number] Date of : 1965 PCP: Neri Purcell Sr, DO Room: [address] [place] [address] Code Status: Full Code Chief Complaint: Chief [...] She was found wandering outside of her detention. She was admitted tothe medicine team and was found to have sepsis as well as a GI bleed. Neurology was consulted due to altered mentation and headache. CT head was done and was unremarkable. CTA head neck unremarkable.EEG was normal. Spinal tap was done in the ED with CSF studies negative for meningitis or PHOTO LAB TECHNICIAN infection. For her headache she was [...] performed by Hari Wagner MD at [facility] Endoscopy Medications Prior to [...] Medium MSSA (methicillin susceptible Staphylococcus aureus) septicemia ([facility]) [A41.01] 06/30/2021 Priority: Medium Upper GI bleed [K92.2] Priority: Medium Non-intractable vomiting [R11.10] Priority: Medium Unintentional weight loss [R63.4] Priority: Medium Sepsis (HCC) [A41.9] 06/29/2021 Priority: Medium Bacteremia [R78.81] 06/29/2021 Priority: Medium Hypothyroidism [E03.9] 06/29/2021 Priority: Medium Hypokalemia [E87.6] 06/29/2021 Priority: Medium Type 2 diabetes mellitus with diabetic polyneuropathy ([facility]) [E11.42] 06/29/2021 Priority: Medium Primary hypertension [I10] 06/29/2021 Priority: Medium Encephalopathy [G93.40] Priority: Medium CIDP (chronic inflammatory demyelinating polyneuropathy) ([facility]) [G61.81] Priority: Medium Altered mental [...] On nafcillin -CSF studies are negative for PHOTO LAB TECHNICIAN infection. -Continue Depakene 250mg BID for [...] from the original note were not included. [facility] Internal Medicine Teaching Residency Program Inpatient Daily Progress Note Patient: Meg Georges Date of : 1965 Acct: [id number] Room: [address] [place] [address] Admit date: 06/28/2021 Today's date: 07/06/21 Number [...] neuropathy follows neurology. Presented to ED from detention, found confused outside. Imaging negative. She complains [...] mL, PRN tiZANidine, 2 mg, Q8H PRN taehdwtkbq-uvvuptivtgadp-iqchmdan, 1 tablet, Q4H PRN hydrALAZINE, 10 mg, [...] antihypertensives. Elevated troponins: Downtrended likely type II NH Hypokalemia: K+ 3.2 today. Likely due to diarrhea. Repeat potassium level and replace if needed Left Vocal cord paralysis: Ongoing x 1 month. ENT on board. Plan for injection laryngoplasty for voice/swallowing improvement at some point. Passed swallow study. Rufus Argueta MD Internal Medicine Resident, PGY- 1 [facility]; [place], [place] 07/06/2021, 7:41 AM Associated attestation - [...] Chew diet with mildly thick liquids per FINANCIAL SALES CONSULTANT 2. Send Magic Cup ONS with meals Nutrition Assessment: Pt made NPO for MBSS d/t concern for aspiration. FINANCIAL SALES CONSULTANT recommending easy to chew and mildly thick [...] ADULT DIET; Easy to Chew; Mildly Thick ([employer]) Anthropometric Measures: Height: 5' 5 (165.1 cm) [place] Body Weight (IBW): 125 lbs (57 kg) Current Body Weight: 145 lb (65.8 kg), 116 % IBW. Weight Source: Stated Current BMI (kg/m2): 24.1 BMI Categories: Normal Weight (BMI 18.5-24.9) Estimated Daily Nutrient Needs: Energy Requirements Based On: Kcal/kg Weight Used for Energy Requirements: Current Energy (kcal/day): 6390-0312 kcals/day Weight Used for Protein Requirements: Current [...] determine Mary Acosta MS, RD, LD Contact: [phone] * Meka Crowe MD - 07/05/2021 2:14 PM EDT Images from the original note were not included. [facility] - Infectious diseases evaluation admission date 06/28/2021 [...] the rise despite tx Infection Control Recommendations Jonancy Precautions Contact Isolation Antimicrobial Stewardship Recommendations Simplification of therapy Targeted therapy History of Present Illness: Initial history: Meg Georges is a 56 y.o.-year-old female presented to the ED for altered mental status. Patient iscurrently admitted under neurology service. Patient presented from a detention after an episode of confusion overnight where she was found wandering outside her detention. She had CT head done at outside [...] [facility] She gets her IvIg through a periph [...] performed by Hari Wagner MD at [facility] Endoscopy Medications: gabapentin 200 [...] Friends and Family: Not on file Attends Oriental Orthodox Services: Not on file Active Member of [...] Negrete MD Office: Perfect serve / office [phone] I have discussed the care of the patient, including pertinent history and exam findings, with the resident. I have seen and examined the patient and the coffey elements of all parts of the encounter have been performed by me. I agree with the assessment, plan and orders as documented by the resident. Meka Crowe, Infectious Diseases * Franck Burnham, SQL ANALYST - 07/05/2021 1:52 PM EDT Images from [...] from the original note were not included. [facility] Internal Medicine Teaching Residency Program Inpatient Daily Progress Note Patient: Meg Georges Date of : 1965 Acct: [id number] Room: 0146/0146-01 Admit date: 06/28/2021 Today's date: [...] neuropathy follows neurology. Presented to ED from detention, found confused outside. Imaging negative. She complains [...] mL, PRN tiZANidine, 2 mg, Q8H PRN mmmjjiaeas-ydydtrbapflxo-kstxysid, 1 tablet, Q4H PRN hydrALAZINE, 10 mg, [...] controlled Elevated troponins: Downtrended likely type II NH -echo done Hypokalemia: K+ 3.1 today. On daily 40 replacement. Repeat potassium level and replace if needed Left Vocal cord paralysis: Ongoing x 1 month. ENT on board. Plan for injection laryngoplasty for voice/swallowing improvement at some point. Passed swallow study. Tami Vega MD Internal Medicine Resident, PGY- 2 [facility]; [place], [place] 07/05/2021, 10:37 AM Associated attestation - [...] per ID * Sindy Sunshine APRN - HAIR MACHINE OPERATOR - 07/05/2021 10:27 AM EDT Images from [...] She was found wandering outside of her detention. She was admitted to the medicine team and was found to have sepsisas well as a GI bleed. Neurology was consulted due to altered mentation and headache. CT head was done and was unremarkable. CTA head neck unremarkable. EEG was normal. Spinal tap was done in the ED with CSF studies negative for meningitis or PHOTO LAB TECHNICIAN infection. For her headache she was [...] performed by Hari Wagner MD at [facility] Endoscopy Social History: Meg [...] LABA1C 9.4 (H) 06/28/2021 LABMICR 7 06/25/2013 [id number] 06/28/2016 Diagnostic data reviewed: CT HEAD [...] of CIDP -CSF studies are negative for PHOTO LAB TECHNICIAN infection -Continue Depakene 250mg BID for [...] to ensure the accuracy of this automated gas golf cart repairer, some errors in gas golf cart repairer may have occurred. 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 Type of Occupation: [employer] Leisure & Hobbies: shopping Additional Comments: Support from congregation friends, but unsure if she would have [...] Hand Dominance Hand Dominance: Right AM-PAC Score [facility] Inpatient Daily Activity Raw Score: 19 (07/04/211629) [facility] Inpatient ADL T-Scale Score : 40.22 (07/04/211629) ADL Inpatient CMS 0-100% Score: 42.8 (07/04/211629) ADL Inpatient [facility] G-Code Modifier : CK (07/04/211629) Goals Short [...] 07/04/2021 4:11 PM EDT Physical Therapy Facility/Department: [address] Physical Therapy Initial Assessment [...] pt requiring modA to perform STS from [facility]. 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 Type of Occupation: [employer], [employer] Leisure & Hobbies: shopping Additional Comments: Support from congregation friends, but unsure if she would have [...] Not formally assessed due to c-spine precautions; scrap yard worker strength WFL Strength LUE Strength LUE: Exception Comment: Not formally assessed due to c-spine precautions; scrap yard worker strength WFL Bed mobility Supine to Sit: Contact guard assistance Sit to Supine: (Did not formally assess- pt retired in restroom upon poem writer's exit) Bed Mobility Comments: Increased time [...] requiring Alejandra donning/ doffing from assistance from poem writer. More Ambulation?: No Stairs/Curb Stairs?: No [...] EDT Speech Language Pathology Speech Language Pathology [facility] Cognitive Treatment Note Date: 07/04/2021 Patient s Name: Meg Georges Diagnosis: Patient Active Problem List Diagnosis Code Cellulitis of left finger L03.012 Altered mental state R41.82 Encephalitis G04.90 Encephalopathy G93.40 CIDP (chronic inflammatory demyelinating polyneuropathy) ([facility]) G61.81 Sepsis ([facility]) A41.9 Bacteremia R78.81 Hypothyroidism E03.9 Hypokalemia E87.6 Type 2 diabetes mellitus with diabetic polyneuropathy ([facility]) E11.42 Primary hypertension I10 Upper GI bleed K92.2 Non-intractable vomiting R11.10 Unintentional weight loss R63.4 Acute metabolic encephalopathy G93.41 MSSA (methicillin susceptible Staphylococcus aureus) septicemia ([facility]) A41.01 Elevated C-reactive protein (CRP) R79.82 Bandemia D72.825 Allergy to multiple antibiotics Z88.1 Pyogenic inflammation of bone ([facility]) M86.9 Acute intractable headache R51.9 Pain: 11/26 [...] recommended at discharge. Treatment completed by:Chaitanya Pratt Airset Caster ROBBIE MCKEON FINANCIAL SALES CONSULTANT, M.A. [facility]-FINANCIAL SALES CONSULTANT * Alisia Cevallos DO - 07/04/2021 2:15 PM EDT Patient's operative note found from care everywhere from Dr.Gloria Elena Washington MD 02/22/2010 from [facility]. Implant is Baerveldt 250 tube shunt, on the left for open angle glaucoma. This is MRI compatible. MRI department will confirm this. * HOLGER Gonzales - 07/04/2021 1:18 PM EDT Speech Language Pathology [facility] Speech Language Pathology Date: 07/04/2021 Patient Name: Meg Georges Date of : 1965 AGE: 56 y.o. Patient Not Available for Speech Therapy Due to: [] Testing [] Hemodialysis [] Cancelled by RN [] Surgery [] Intubation/Sedation/Pain Medication [] Medical instability [x] Other: Pt in pain. Asked ST to return later Next scheduled treatment: 518 in PM if able, 07/05 Completed by:Chaitanya Pratt Airset Caster ROBBIE MCKEON, FINANCIAL SALES CONSULTANT, M.A. [facility]-FINANCIAL SALES CONSULTANT * Gutierrez Sloan MD - 07/04/2021 12:13 [...] Dr. Chilo Mccoy and Dr. Angel Krueger [address] [facility] [address] OPTION 2: [facility] [address] [facility] [address] [place] [address] Appointment scheduling: Other Useful Numbers: [facility] ENT Nurse triage line [phone] (ENT-related questions or concerns, 8am-4pm,Friday through Friday) Gutierrez Sloan MD Pediatric Otolaryngology-Head and Neck Surgery [facility] Otolaryngology group Office ph# [phone] Also available in [employer] * Giulia Bray, REBEKA - [facility] - 07/04/2021 10:06 AM EDT Images from the original note were not included. [facility] - Infectious diseases evaluation admission date 06/28/2021 [...] patient, RN, Dr. Robledo. Infection Control Recommendations Jonancy Precautions Contact Isolation Antimicrobial Stewardship Recommendations Simplification of therapy Targeted therapy History of Present Illness: Initial history: Meg Georges is a 56 y.o.-year-old female presented to the ED for altered mental status. Patient iscurrently admitted under neurology service. Patient presented from a detention after an episode of confusion overnight where she was found wandering outside her detention. She had CT head done at outside [...] [facility] She gets her IvIg through a periph [...] performed by Hari Wagner MD at [facility] Endoscopy Medications: lidocaine 1 [...] Friends and Family: Not on file Attends Oriental Orthodox Services: Not on file Active Member of [...] Orellana CNP Office: Perfect serve / office [phone] \ * REBEKA Conte CNP - 07/04/2021 [...] She was found wandering outside of her detention. She was admitted to the medicine team and was found to have sepsisas well as a GI bleed. Neurology was consulted due to altered mentation and headache. CT head was done and was unremarkable. CTA head neck unremarkable. EEG was normal. Spinal tap was done in the ED with CSF studies negative for meningitis or PHOTO LAB TECHNICIAN infection. For her headache she was [...] performed by Hari Wagner MD at [facility] Endoscopy Social History: Meg [...] LABA1C 9.4 (H) 06/28/2021 LABMICR 7 06/25/2013 [id number] 06/28/2016 Diagnostic data reviewed: CT HEAD [...] IVIG sooner -CSF studies are negative for PHOTO LAB TECHNICIAN infection -Continue Depakene 250mg BID for headache -GI is following, patient is s/p EGD with findings suggestive of Alan esophagitis -ID is following; patient remains on antibiotics -Neurosurgery is following; possible myelogram -PT/OT -We will follow Please note that this note was generated using a voice recognition dictation software. Although every effort was made to ensure the accuracy of this automated gas golf cart repairer, some errors in gas golf cart repairer may have occurred. * Rufus Argueta MD - 07/04/2021 7:05 AM EDT Images from the original note were not included. [facility] Internal Medicine Teaching Residency Program Inpatient Daily Progress Note Patient: Meg Georges Date of : 1965 Acct: [id number] Room: 0146/0146-01 Admit date: 06/28/2021 Today's date: [...] neuropathy follows neurology. Presented to ED from detention, found confused outside. Imaging negative. She complains [...] mL, PRN tiZANidine, 2 mg, Q8H PRN ihvnfjbzeg-hzsbsvebjvjll-unthdvmp, 1 tablet, Q4H PRN hydrALAZINE, 10 mg, [...] controlled Elevated troponins: Downtrending likely type II NH -echo result pending Hypokalemia: K+ 2.9 today. [...] Argueta MD Internal Medicine Resident, PGY- 1 [facility]; [place], [place] 07/04/2021, 7:05 AM Associated attestation - [...] 1:33 PM EDT Speech Language Pathology Facility/Department: [facility] 1C STEP DOWN Initial [...] hypothyroidism, hyperlipidemia, sleepapnea, who was transferred from [facility], after she presented from her detention for an episode of confusion overnight where she was found wandering outside her detention. She does not recall the episode very well, complaining of head pain, generalized weakness, weak voice. She had CT head done at outside facility which did not show any acute changes, telestroke was consulted for the concern for confusion, they recommended transfer to [place] for MRI of the brain. Patient has a complicated history over the last few years, has been seen by neurology at [facility] for worsening neuropathy symptoms, eventually diagnosed with CIDP and she is on IVIG infusions every 2 weeks although she has not had them in the last month or so since being in the detention. 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 Recommendations: Requires FINANCIAL SALES CONSULTANT Intervention: Yes D/C Recommendations: Ongoing speech therapy [...] were not included. [facility] - Infectious diseases evaluation admission date 06/28/2021 [...] the rise [place][pite tx Infection Control Recommendations Jonancy Precautions Contact Isolation Antimicrobial Stewardship Recommendations Simplification of therapy Targeted therapy History of Present Illness: Initial history: Meg Georges is a 56 y.o.-year-old female presented to the ED for altered mental status. Patient iscurrently admitted under neurology service. Patient presented from a detention after an episode of confusion overnight where she was found wandering outside her detention. She had CT head done at outside [...] [facility] gets her [facility] through a periph [...] Friends and Family: Not on file Attends Oriental Orthodox Services: Not on file Active Member of [...] Crowe MD Office: Perfect serve / office [phone] \ * Hodan Kyle - 07/03/2021 10:22 AM EDT Echo completed in echo lab. * Sindy Sunshine, ACADEMIC PROGRAM SPECIALIST - HAIR MACHINE OPERATOR - 07/03/2021 8:52 AM EDT Images from [...] She was found wandering outside of her detention. She was admitted to the medicine team and was found to have sepsis as well as a GI bleed. Neurology was consulted due to altered mentation and headache. CT head was done and was unremarkable. CTA head neck unremarkable. EEG was normal. Spinal tap was done in the ED with CSF studies negative for meningitis or PHOTO LAB TECHNICIAN infection. For her headache she was [...] LABA1C 9.4 (H) 06/28/2021 LABMICR 7 06/25/2013 [id number] 06/28/2016 Diagnostic data reviewed: CT HEAD [...] CIDP Plan: -CSF studies are negative for PHOTO LAB TECHNICIAN infection -Patient headache is improved with [...] to ensure the accuracy of this automated gas golf cart repairer, some errors in gas golf cart repairer may have occurred. * Rufus Argueta MD - 07/03/2021 5:57 AM EDT Images from the original note were not included. [facility] Internal Medicine Teaching Residency Program Inpatient Daily Progress Note Patient: Meg Georges Date of : 1965 Acct: [id number] Room: [facility]/0146- Admit date: 06/28/2021 Today's date: 07/03/21 Number [...] neuropathy follows neurology. Presented to ED from detention, found confused outside. Imaging negative. She complains [...] Daily PRN tiZANidine, 2 mg, Q8H PRN xwzlctpcip-ejjgccwksoxvz-qdnmifsp, 1 tablet, Q4H PRN hydrALAZINE, 10 mg, [...] study was made toand acknowledged by Dr. Botohe in the emergency department at 4:55 AM [...] controlled Elevated troponins: Downtrending likely type II NH -echo result pending Hypokalemia: K+ 2.9 today. [...] Argueta MD Internal Medicine Resident, PGY- 1 [facility]; [place], [place] 07/03/2021, 5:58 AM Associated attestation - [...] were not included. [facility] - Infectious diseases evaluation admission date 06/28/2021 [...] scan to the neck Infection Control Recommendations Jonancy Precautions Contact Isolation Antimicrobial Stewardship Recommendations Simplification of therapy Targeted therapy History of Present Illness: Initial history: Meg Georges is a 56 y.o.-year-old female presented to the ED for altered mental status. Patient iscurrently admitted under neurology service. Patient presented from a detention after an episode of confusion overnight where she was found wandering outside her detention. She had CT head done at outside [...] [facility] She gets her IvIg through a periph [...] Friends and Family: Not on file Attends Oriental [employer] Services: Not on file Active Member of [...] Crowe MD Office: Perfect serve / office [phone] \ * HOLGER Larson - 07/02/2021 11:41 AM EDT Speech Language Pathology [facility] Speech Language Pathology Date: 07/02/2021 Patient Name: [...] as appropriate Completed by: HOLGER Larson, M.S. [facility]-FINANCIAL SALES CONSULTANT * Kenya Liu MD - 07/02/2021 8:22 AM EDT NEUROLOGY INPATIENT PROGRESS NOTE 07/02/2021 Subjective: Meg eGorges is a 56 y.o. female admitted on 06/28/2021 with Stupor [R40.1] Encephalitis [G04.90] Altered mental state [R41.82] Briefly, this is a 56 y.o. 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 She was found wandering outside her detention. Admitted to medicine for sepsis work up, [...] 0-6 Units SubCUTAneous Nightly PRN Meds include: wjdicwjzsl-uvsjzvkstjqam-yenptpmk, hydrALAZINE, sodium chloride flush, sodium chloride, ondansetron [...] LABA1C 9.4 (H) 06/28/2021 LABMICR 7 06/25/2013 [id number] 374 06/28/2016 No results found for: PHENYTOIN, [...] episodic confusion. She was found wanderingoutside her detention. MSSA sepsis - on Abx per primary. [...] for EGD today. CSF studies negative for PHOTO LAB TECHNICIAN infection. Will continue to follow. Pawan Dutton DO 07/02/2021 3:45 PM * Rufus Argueta MD - 07/02/2021 7:16 AM EDT Images from the original note were not included. [facility] Internal Medicine Teaching Residency Program Inpatient Daily Progress Note Patient: Meg Georges Date of : 1965 Acct: [id number] Room: [address] [place] [address] Admit date: 06/28/2021 Today's date: 07/02/21 Number [...] neuropathy follows neurology. Presented to ED from detention, found confused outside. Imaging negative. She complains [...] at 07/01/21 0600 sodium chloride dextrose PRN Kohzdazmuqbzpqioizmrb-wenwpnrzyfxqv-ajrwebhu, 1 tablet, Q4H PRN hydrALAZINE, 10 mg, [...] N&V Elevated troponins: Downtrending likely type II NH -echo result pending Hypokalemia: K+ 2.2 today. Replace PO and IV and monitor Left Vocal cord paralysis: Ongoing x 1 month. ENT on board. Plan for injection laryngoplasty for voice/swallowing improvement at some point. Needs formal speech therapy/swallow study assessment as she is likely aspirating liquids Rufus Argueta MD Internal Medicine Resident, PGY- 1 [facility]; [place], [place] 07/02/2021, 7:16 AM Associated attestation - [...] history and exam findings with the resident/ HAIR MACHINE OPERATOR. I have seen and examined the patient and the coffey elements of the encounter have been performed by me. I agree with the assessment, plan and orders as documented by the resident or HAIR MACHINE OPERATOR with changes made to the note. Briefly, this is a 56 y.o. female with known dx of CIDP (on 2wkly IVIG), IDDM, HLD, sleep apnea wasadmitted on 06/28/2021 with episodic confusion; found wandering outside her detention. Her history is significant for CIDP for [...] 0-6 Units SubCUTAneous Nightly PRN Meds include: rsdxylbvfu-lwdnlpuiurrwz-riqgcqhj, hydrALAZINE, sodium chloride flush, sodium chloride, ondansetron [...] LABA1C 9.4 (H) 06/28/2021 LABMICR 7 06/25/2013 [id number] 374 06/28/2016 Impression and Plan: Ms. Meg [...] Weldon MD - 07/01/2021 11:06 AM EDT [facility] IN-PATIENT SERVICE [facility] Progress note Date: 07/01/2021 Patient name: Meg Georges Date of admission: 06/28/2021 11:59 AM Account: [id number] Date of : 1965 PCP: Neri Purcell Sr, DO Room: [address] [place] [address] Code Status: Full Code Chief Complaint: Chief [...] panel 06/28/21 Total cholesterol 155, LDL 63 KLA8X-1.4 this admission CSF studies 06/28/21 Oligoclonal banding [...] # 2.14 1.0 - 4.8 k/uL Absolute [place] # 0.76 0.1 - 0.8 k/uL Absolute [...] history and exam findings with the resident/ HAIR MACHINE OPERATOR. I have seen and examined the patient and the coffey elements of the encounter have been performed by me. I agree with the assessment, plan and orders as documented by the resident or HAIR MACHINE OPERATOR with changes made to the note. Briefly, this is a 56 y.o. female with known dx of CIDP (on 2wkly IVIG), IDDM, HLD, sleep apnea wasadmitted on 06/28/2021 with episodic confusion; found wandering outside her detention. Her history is significant for CIDP for [...] SubCUTAneous Nightly PRN Meds include: PRN Medications fhddffqifj-nnoxommdrvwny-mizcavsf, hydrALAZINE, sodium chloride flush, sodium chloride, ondansetronOR [...] LABA1C 9.4 (H) 06/28/2021 LABMICR 7 06/25/2013 [id number] 374 06/28/2016 Impression and Plan: Ms. Meg [...] from the original note were not included. [facility] Internal Medicine Teaching Residency Program Inpatient Daily Progress Note Patient: Meg Georges Date of : 1965 Acct: [id number] Room: [facility]/0146-01 Admit date: 06/28/2021 Today's date: 07/01/21 Number [...] neuropathy follows neurology. Presented to ED from detention, found confused outside. Imaging negative. She complains [...] at 07/01/21 0600 sodium chloride dextrose PRN Nhywuqqdkzlnkdvgdsbhu-vwgrvyjdjqnjn-oancubhi, 1 tablet, Q4H PRN hydrALAZINE, 10 mg, [...] N&V Elevated troponins: Downtrending likely type II NH -echo result pending Hypokalemia: K+ 2.2 today. Replace PO and IV and monitor Rufus Argueta MD Internal Medicine Resident, PGY- 1 [facility]; [place], [place] 07/01/2021, 7:33 AM Associated attestation - [...] were not included. [facility] - Infectious diseases evaluation Progress Note admission [...] object in her eyes Infection Control Recommendations Jonancy Precautions Antimicrobial Stewardship Recommendations Simplification of therapy Targeted therapy History of Present Illness: INITIAL HISTORY: Meg Georges is a 56 y.o.-year-old female who presented to the ED because of altered mental status. Patient is currently admitted under neurology service. Patient presented from a detention after an episode of confusion overnight where she was found wandering outside her detention. She had CThead done at outside facility [...] [facility] She gets her IvIg through a peripheral [...] Friends and Family: Not on file Attends Oriental Orthodox Services: Not on file Active Member of [...] Stokes MD Office: Perfect serve / office [phone] * Rosalinda Alvarado, ACADEMIC PROGRAM SPECIALIST - HAIR MACHINE OPERATOR - 07/01/2021 6:49 AM EDT Joy Benitez's [...] Stopped (07/01/21 0427) sodium chloride dextrose PRN Meds:eqlyzwxaft-siwfaagzqlpte-oiczwgit, hydrALAZINE, sodium chloride flush, sodium chloride, ondansetron [...] results for input(s): LABIRON, TIBC, IRON, FERRITIN, [id number], FOLATE, OCCULTBLD in the last 72 hours. [...] head and neck. ENDOSCOPY Principal Problem: Sepsis ([facility]) Active Problems: Altered mental state Encephalitis Encephalopathy CIDP (chronic inflammatory demyelinating polyneuropathy) ([facility]) Bacteremia Hypothyroidism Hypokalemia Type 2 diabetes mellitus with diabetic polyneuropathy ([facility]) Primary hypertension Upper GI bleed Non-intractable vomiting Unintentional weight loss Acute metabolic encephalopathy MSSA (methicillin susceptible Staphylococcus aureus) septicemia ([facility]) Resolved Problems: * No resolved hospital problems. * GI Assessment: 56-year-old female with a past medical history of uncontrolled insulin-dependent diabetes (Hgb A1c-9.4), hypothyroidism, chronic inflammatory demyelinating polyneuropathy on IVIG, MGUS neuropathy, and GERD who presented from detention after being found outside confused. She was [...] of your patient. Rosalinda Alvarado APRN - HAIR MACHINE OPERATOR on 07/01/2021 at 6:50 AM [facility] Please note that this note was generated using a voice recognition dictation software. Although every effort was made to ensure the accuracy of this automated gas golf cart repairer, some errors in gas golf cart repairer may have occurred. Associated attestation - Hari Wagner MD - 07/01/2021 11:00 AM EDT Attending Physician Statement I have seen, examined and discussed the care of Meg Georges, including pertinent history and exam findings, with the HAIR MACHINE OPERATOR. I agree with the assessment, plan and orders as documented by the HAIR MACHINE OPERATOR. * Ganga Archuleta - 06/30/2021 8:04 PM EDT SPIRITUAL CARE DEPARTMENT - [facility] PRO[facility]ESS [facility] Shift date: 06/30/21 Shift day: Friday Shift # 2 Room # 0146/0146-01 Name: Meg Georgse Age: 56 y.o. Gender: female Roman Catholic: Scientologist Place of caodaism: Referral: Routine Visit Admit Date & Time: 06/28/2021 11:59 AM PATIENT/EVENT DESCRIPTION: Meg Georges is a 56 y.o. female SPIRITUAL ASSESSMENT/INTERVENTION: Patient appeared to welcome city controller presence. Patient engaged in conversation and stated she had lost her voice. Houseman was a ministry of presence and offered prayer for spiritual comfort/support.Patient accepted prayer and expressed gratitude for visit. SPIRITUAL CARE FOLLOW-UP PLAN: Chaplains will remain available to offer spiritual and emotional support as needed. . Spiritual Care Department [facility] [phone] * Jonathan Steve MD - 06/30/2021 12:56 PM EDT Images from the original note were not included. [facility] Internal Medicine Teaching Residency Program Inpatient Daily Progress Note Patient: Meg Georges Date of : 1965 Acct: [id number] Room: [address] [place], [place] [address]- Admit date: 06/28/2021 Today's date: 06/30/21 Number [...] neuropathy follows neurology. Presented to ED from detention, found confused outside. Imaging negative. She complains [...] Stopped (06/30/21 0408) sodium chloride dextrose PRN Zpqpxcvidgdzhbonrtbyd-pvdudkoyooyey-owvpkjds, 1 tablet, Q4H PRN hydrALAZINE, 10 mg, [...] N&V Elevated troponins: Downtrending likely type II NH -echo result pending Hypokalemia: Labs pending Jonathan Steve MD Internal Medicine Resident, PGY- 2 [facility]; [place], [place] 06/30/2021, 12:56 PM Associated attestation - [...] with episodic confusion; found wandering outside her detention. Her history is significant for CIDP for [...] 0-6 Units SubCUTAneous Nightly PRN Meds include: wwvgeowjkv-xcqlfsoebkglx-hervbybv, hydrALAZINE, sodium chloride flush, sodium chloride, ondansetron [...] LABA1C 9.4 (H) 06/28/2021 LABMICR 7 06/25/2013 [id number] 06/28/2016 Impression and Plan: Ms. Meg [...] Jewell MD 06/30/2021 11:45 AM * Leeann lEder, HOLGER - 06/30/2021 8:58 AM EDT Speech Language Pathology Facility/Department: [facility] 1C STEP DOWN Initial [...] of Eval: 06/30/2021 Evaluating Therapist: Leeann Elder FINANCIAL SALES CONSULTANT RECENT RESULTS CT OF HEAD/MRI: CT Head [...] chronic IVIG every 2 weeks, transferred from [facility] for further neurological evaluation. She was [...] any ENT evaluation Diagnosis: Dysphonia Recommendations: Requires FINANCIAL SALES CONSULTANT Intervention: Yes D/C Recommendations: To be determined [...] were not included. [facility] - Infectious diseases evaluation Progress Note admission [...] object in her eyes Infection Control Recommendations Jonancy Precautions Antimicrobial Stewardship Recommendations Simplification of therapy Targeted therapy History of Present Illness: INITIAL HISTORY: Meg Georges is a 56 y.o.-year-old female who presented to the ED because of altered mental status. Patient is currently admitted under neurology service. Patient presented from a detention after an episode of confusion overnight where she was found wandering outside her detention. She had CThead done at outside facility [...] [facility] She gets her IvIg through a peripheral [...] Friends and Family: Not on file Attends Oriental Orthodox Services: Not on file Active Member of [...] Stokes MD Office: Perfect serve / office [phone] * Mini Fitzgerald RN - 06/29/2021 6:[address] Crowe phoned poem writer with new order d/c MRI d/t unknown foreign object in patients eyes. New order for bone scan for cervical spine,look for osteomyelitis. * Ashwini Mendoza - 06/29/2021 2:49 PM EDT EEG completed * HOLGER Gonzales - 06/29/2021 1:37 PM EDT Speech Language Pathology [facility] Speech Language Pathology Date: 06/29/2021 Patient Name: [...] by: Chaitanya Pratt Graduate Clinician ROBBIE MCKEON, FINANCIAL SALES CONSULTANT, M.A. [facility]-FINANCIAL SALES CONSULTANT * David Donnelly RPH - 06/29/2021 9:15 AM EDT [facility] Pharmacokinetic Monitoring Service - Vancomycin [...] for the consult, David Donnelly PharmCarrolD., ETIENNE, PSYCHIATRICCP 06/29/2021 9:15 AM * Kishor Her MD [...] nausea, vomiting, diarrhea. Genitourinary: No increa ARASELI [facility] Work Phone: 1(700) 258-979705-24-2022 Hospital Discharge instructions* Discharge Instr - TEX* Sebas Arnold RN - 07/10/2021 7:52 AM EDT Continuity of Care Form Patient Name: Meg Georges : 1965 Admit date: 06/28/2021 Discharge date: 07/10/2021 Code Status Order: Full Code Advance Directives: Admitting Physician: Silver Carmona MD PCP: Neri Purcell Sr, DO Discharging Nurse: Thierry Discharging Hospital Unit/Room#: 0146/0146-01 Discharging Unit Phone Number: [phone] Emergency Contact: Extended Emergency Contact Information Primary Emergency Contact: Hina [facility] Mobile Relation: Brother/Sister Past Surgical History: Past Surgical History: Procedure Laterality Date ACHILLES TENDON SURGERY left BACK SURGERY L 4 and 5 1995, 1996 CERVICAL FUSION N/A 07/06/2021 POSTERIOR CERVICAL C1 LAMINECTOMY. LEFT C2 RHIZOTOMY, EXPLORATION OF EPIDURAL PHLEGMON performed byAlisia Cevallos DO at [facility] OR CHOLECYSTECTOMY EYE SURGERY [address] shunt for open angle glaucoma. MRI compatible- device is all silicone LAMINECTOMY 07/06/2021 Posterior C1, LEFT C2 RHIZOTOMY, EXPLORATION OF EPIDURAL PHLEGMON SHOULDER SURGERY right UPPER GASTROINTESTINAL ENDOSCOPY N/A 07/02/2021 EGD ESOPHAGOGASTRODUODENOSCOPY performed by Hari Wagner MD at [facility] Endoscopy Immunization History: There is no immunization history on file for this patient. Active Problems: Patient Active Problem List Diagnosis Code Cellulitis of left finger L03.012 Altered mental state R41.82 Encephalitis G04.90 Encephalopathy G93.40 CIDP (chronic inflammatory demyelinating polyneuropathy) ([facility]) G61.81 Sepsis ([facility]) A41.9 Bacteremia R78.81 Hypothyroidism E03.9 Hypokalemia E87.6 Type 2 diabetes mellitus with diabetic polyneuropathy ([facility]) E11.42 Primary hypertension I10 Upper GI bleed K92.2 Non-intractable vomiting R11.10 Unintentional weight loss R63.4 Acute metabolic encephalopathy G93.41 MSSA (methicillin susceptible Staphylococcus aureus) septicemia ([facility]) A41.01 CRP elevated R79.82 Bandemia D72.825 Allergy to multiple antibiotics Z88.1 Pyogenic inflammation of bone ([facility]) M86.9 Acute intractable headache R51.9 Acute osteomyelitis of cervical spine ([facility]) M46.22 Abscess in epidural space [...] - PICC - site {Anatomy; iv placement site:[id number]}, insertion date: 07/10/2021 Nursing Mobility/ADLs: Walking Assisted Transfer Assisted Bathing Assisted Dressing Assisted Toileting Assisted Feeding Assisted Forest Nursery Worker Assisted Med Delivery crushed Wound Care Documentation [...] mechanically altered Routes of Feeding: Oral Liquids: [place] Thick Liquids Daily Fluid Restriction: no Last [...] DME order): wheelchair and walker Other Treatments: Long-Term Assessment Patient's personal belongings (please select all that are sent with patient): Glasses RN SIGNATURE: CASE MANAGEMENT/SOCIAL WORK SECTION Inpatient Status Date: Readmission Risk Assessment Score: Readmission Risk Risk of Unplanned Readmission: 23 Discharging to Facility/ Agency SUSAN Raf Delgadillo [facility] Services Available Long-Term Address [address] [facility] [address] Contact Information [phone] Dialysis Facility (if applicable) Name: Address: Dialysis Schedule: Phone: Fax: Advertising Supervisor/Curator [employer] signature: PHYSICIAN SECTION Prognosis: Good Condition at [...] the diagnosis listed and that she requires Long-Term Facility for less 30 days. Update Admission [...] any urinary retention [facility] [employer] Phone: 1(188) 822-537905-12-2022 History of Present illness Narrative* Vesta Barlow RN - 06/28/2021 7:24 AM EDT Updated sister, Hina. States will be in. * Kati Villarreal RN - 06/28/2021 4:25 AM EDT This nurse called and spoke with Rachel (nurse) at [facility] to get an updated med list. Rachel [...] because she was vomiting. documented in [facility]Mag[facility] HospitalCity Notes Phone: 1(109) 645-477703-25-2022 History of Present illness Narrative* Sania Johnson DO - 05/11/2021 1:30 PM EDT The patient tolerated the infusion well without any complications. [facility] Instructions* Patient Instructions* Tia Baugh PA-C [...] Care Everywhere. * Staph Infection: General Info (Nigerian) * Moise (Nigerian) documented in this [id number] History of Present illness Narrative* Tia Baugh PA-C - 05/01/2021 3:09 PM EDT PATIENT NAME: Meg [facility] URGENT CARE: [address] [facility] [id number] DATE OF VISIT: 05/01/2021 DATE OF : [...] without toes, left 01/26/2019 Asthma Atherosclerosis of tling[place] & [place] arteries of left leg with ulceration of other part of foot ([facility]) 03/14/2017 Back problem Bilateral foot-drop [...] 11/11/2017 Corns and callosities 03/13/2016 Diabetes mellitus ([facility]) Dystrophic nail 11/15/2016 Foot cramps Foot ulcer ([facility]) 02/25/2019 OTHER PART OF FOOT Fracture of third toe, left, closed 02/15/2016 Fungal toenail infection 11/15/2016 GERD (gastroesophageal reflux disease) Glaucoma both eyes Heart murmur High cholesterol 03/27/2015 Hyperlipidemia Hypertension Ingrown toenail 10/30/2015 Leg cramps Metatarsalgia of both feet 10/07/2016 Neuropathy Non-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 ([facility]) 09/06/2016 Non-pressure chronic ulcer of left lower leg with fat layer exposed ([facility]) 03/28/2017 Non-pressure chronic ulcer of other part of left foot with fat layer exposed ([facility]) 08/14/2017 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 involvement without evidenceof necrosis ([facility]) 03/14/2017 Non-pressure chronic ulcer of right ankle limited to breakdown of skin ([facility]) 08/14/2016 Nondisplaced fracture of proximal phalanx of right great toe 09/19/2017 Onychomycosis 12/13/2015 Osteomyelitis ([facility]) 04/23/2019 Peripheral vascular disease ([facility]) 08/17/2019 Pre-ulcerative calluses 08/13/2018 Right foot ulcer ([facility]) 09/26/2014 Shortness of breath Sprain of calcaneofibular ligament of right ankle 12/05/2017 Swelling of both ankles Swelling of both lower extremities Thyroid disorder 03/27/2015 Tinea unguium 08/13/2018 Traumatic closed fracture of phalanx of foot with minimal displacement 08/11/2017 Traumatic closed nondisplaced fracture of phalanx of right foot with delayed healing 09/08/2017 Type 2 diabetes mellitus with diabetic neuropathy ([facility]) 11/11/2017 Diabetic autonomic (poly) neuropathy Type 2 diabetes mellitus with foot ulcer ([facility]) 06/19/2016 Type 2 diabetes, uncontrolled, with peripheral circulatory disorder ([facility]) 03/28/2017 Xerosis cutis 01/17/2016 Family [...] for this visit. -Aerobic culture of the cdllvhpf-ugcy-zyq from the small finger of the right hand -Doxycycline 100 mg twice daily for 7 days -Mupirocin ointment to be applied 3 times daily to the affected area and a light layer -I have contacted Dr. Stanley's office in [place] and hoping to schedule a follow- up visit with Dr. Stanley for further evaluation of the patient's hand. Tia Baugh 05/01/2021 documented in this [id number] History of Present illness Narrative* Jef Sierra [...] character of her wounds documented in this [id number] NoteProcedure date: 04/12/2021. Intraocular injection: 1.25 mg Bevacizumab (AVASTIN) 2.5mg/0.1 ML syringe [facility] [place] [id number], Lot: [id number], Expiration date: 06/10/2021 Route: Intravitreal, Site: Right Eye Notes Bevacizumab (Avastin) Intraocular Injection Right Eye - OPHTHALMOLOGY PROCEDURE NOTE PROCEDURE PERFORMED BY: Sharon Hernandez MD CAFETER[employer] COUNTER ATTENDANT(S): None ATTENDING: Sharon Hernandez MD PROCEDURE DATE: 04/12/2021 PROCEDURE START TIME: 10:47 AM INDICATIONS: Treatment of ICD-10-CM 1. Diabetic macular edema E11.311 MI BEVACIZUMAB SOLN - OD EYE: Right (OD) [...] THIS PROCEDURE REQUIRE A UNIVERSAL PROTOCOL? Yes. Jonancy Protocol is required. Pre-procedure verification was completed. [...] sterile saline and an antibiotic drop was instilled.[facility]02-17-2022 NoteProcedure date: 04/05/2021. Intraocular injection: 1.25 mg Bevacizumab (AVASTIN) 2.5mg/0.1 ML syringe [facility] [place]: 19176-952-52, Lot: [id number], Expiration date: 05/01/2021 Route: Intravitreal, Site: Left Eye Notes Bevacizumab (Avastin) Intraocular Injection Left Eye - OPHTHALMOLOGY PROCEDURE NOTE PROCEDURE PERFORMED BY: Sharon Hernandez MD CAFETER[employer] COUNTER ATTENDANT(S): None ATTENDING: Sharon Hernandez MD PROCEDURE DATE: 04/05/2021 PROCEDURE START TIME: 11:15 AM INDICATIONS: Treatment of ICD-10-CM 1. 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 Yes. Jonancy Protocol is required. Pre-procedure verification was completed. [...] sterile saline and an antibiotic drop was instilled.[facility]02-08-2022 History of Present illness Narrative * [...] character of her wounds documented in this [id number] Instructions* Patient Instructions* Jef Sierra Jr., DPM - 02/20/2021 10:07 AM EST Continue topical antibiotic ointment and bandaid with padding. documented in this [id number] History of Present illness Narrative* Jef Sierra [...] without toes, left 01/26/2019 Asthma Atherosclerosis of tlingit & ha[place] arteries of left leg with ulceration of [...] 11/11/2017 Corns and callosities 03/13/2016 Diabetes mellitus ([facility]) Dystrophic nail 11/15/2016 Foot cramps Foot ulcer ([facility]) 02/25/2019 OTHER PART OF FOOT Fracture of third toe, left, closed 02/15/2016 Fungal toenail infection 11/15/2016 GERD (gastroesophageal reflux disease) Glaucoma both eyes Heart murmur High cholesterol 03/27/2015 Hyperlipidemia Hypertension Ingrown toenail 10/30/2015 Leg cramps Metatarsalgia of both feet 10/07/2016 Neuropathy Non-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 ([facility]) 09/06/2016 Non-pressure chronic ulcer of left lower leg with fat layer exposed ([facility]) 03/28/2017 Non-pressure chronic ulcer of other part of left foot with fat layer exposed ([facility]) 08/14/2017 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 involvement without evidenceof necrosis ([facility]) 03/14/2017 Non-pressure chronic ulcer of right ankle limited to breakdown of skin ([facility]) 08/14/2016 Nondisplaced fracture of proximal phalanx of right great toe 09/19/2017 Onychomycosis 12/13/2015 Osteomyelitis ([facility]) 04/23/2019 Peripheral vascular disease ([facility]) 08/17/2019 Pre-ulcerative calluses 08/13/2018 Right foot ulcer ([facility]) 09/26/2014 Shortness of breath Sprain of calcaneofibular ligament of right ankle 12/05/2017 Swelling of both ankles Swelling of both lower extremities Thyroid disorder 03/27/2015 Tinea unguium 08/13/2018 Traumatic closed fracture of phalanx of foot with minimal displacement 08/11/2017 Traumatic closed nondisplaced fracture of phalanx of right foot with delayed healing 09/08/2017 Type 2 diabetes mellitus with diabetic neuropathy ([facility]) 11/11/2017 Diabetic autonomic (poly) neuropathy Type 2 diabetes mellitus with foot ulcer ([facility]) 06/19/2016 Type 2 diabetes, uncontrolled, with peripheral circulatory disorder ([facility]) 03/28/2017 Xerosis cutis 01/17/2016 Past [...] clean dry and intact transtion back to [facility] boot with Pegassist -Follow-up in 2 weeks to review. documented in this [id number] NoteProcedure date: 02/14/2021. Right Eye Clear. Disc [...] better. Recommendation for management is to continue treatment.[facility]12-29-2021 Note Procedure date: 02/14/2021. Intraocular injection: 1.25 mg Bevacizumab (AVASTIN) 2.5mg/0.1 ML syringe [facility] [place]: [id number], Lot: [id number], Expiration date: 03/07/2021 Route: Intravitreal, Site: Right Eye Notes Bevacizumab (Avastin) Intraocular Injection Right Eye - OPHTHALMOLOGY PROCEDURE NOTE PROCEDURE PERFORMED BY: Sharon Hernandez MD CAFETER[employer] COUNTER ATTENDANT(S): None ATTENDING: Sharon Hernandez MD PROCEDURE DATE: 02/14/2021 PROCEDURE START TIME: 10:25 AM INDICATIONS: Treatment of ICD-10-CM 1. Diabetic macular edema E11.311 MI BEVACIZUMAB SOLN - OD EYE: Right (OD) [...] THIS PROCEDURE REQUIRE A UNIVERSAL PROTOCOL? Yes. Jonancy Protocol is required. Pre-procedure verification was completed. [...] sterile saline and an antibiotic drop was instilled.[facility]12-27-2021 NoteProcedure date: 02/12/2021. Intraocular injection: 1.25 mg Bevacizumab (AVASTIN) 2.5mg/0.1 ML syringe ND: [id number], Lot: [id number], Expiration date: 03/01/2021 Route: Intravitreal, Site: Left Eye Notes Bevacizumab (Avastin) Intraocular Injection Left Eye - OPHTHALMOLOGY PROCEDURE NOTE PROCEDURE PERFORMED BY: Sharon Hernandez MD CAFETERIA COUNTER ATTENDANT(S): None ATTENDING: Sharon Hernandez MD PROCEDURE DATE: 02/12/2021 PROCEDURE START TIME: 10:46 AM INDICATIONS: Treatment of ICD-10-CM 1. Diabetic macular edema E11.311 bevacizumab 1.25 MG/0.05 ML Solution MI BEVACIZUMAB SOLN - OS MI BEVACIZUMAB SOLN - OS EYE: Left (OS) [...] THIS PROCEDURE REQUIRE A UNIVERSAL PROTOCOL? Yes. Jonancy Protocol is required. Pre-procedure verification was completed. [...] sterile saline and an antibiotic drop was instilled.[facility]12-21-2021 History of Present illness Narrative * [...] without toes, left 01/26/2019 Asthma Atherosclerosis of tlingit & ha[place] arteries of left leg with ulceration of [...] of left ankle with fat layer exposed ([facility]) 09/06/2016 Non-pressure chronic ulcer of left lower leg with fat layer exposed ([facility]) 03/28/2017 Non-pressure chronic ulcer of other part of left foot with fat layer exposed ([facility]) 08/14/2017 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 involvement without evidenceof necrosis ([facility]) 03/14/2017 Non-pressure chronic ulcer of right ankle limited to breakdown of skin ([facility]) 08/14/2016 Nondisplaced fracture of proximal phalanx of right great toe 09/19/2017 Onychomycosis 12/13/2015 Osteomyelitis ([facility]) 04/23/2019 Peripheral vascular disease ([facility]) 08/17/2019 Pre-ulcerative calluses 08/13/2018 Right foot ulcer ([facility]) 09/26/2014 Shortness of breath Sprain of calcaneofibular ligament of right ankle 12/05/2017 Swelling of both ankles Swelling of both lower extremities Thyroid disorder 03/27/2015 Tinea unguium 08/13/2018 Traumatic closed fracture of phalanx of foot with minimal displacement 08/11/2017 Traumatic closed nondisplaced fracture of phalanx of right foot with delayed healing 09/08/2017 Type 2 diabetes mellitus with diabetic neuropathy ([facility]) 11/11/2017 Diabetic autonomic (poly) neuropathy Type 2 diabetes mellitus with foot ulcer ([facility]) 06/19/2016 Type 2 diabetes, uncontrolled, with peripheral circulatory disorder ([facility]) 03/28/2017 Xerosis cutis 01/17/2016 Past [...] 2 weeks to review. documented in this [id number] History of Present illness Narrative* Jef Sierra [...] without toes, left 01/26/2019 Asthma Atherosclerosis of tlingit & ha[place] arteries of left leg with ulceration of [...] 11/11/2017 Corns and callosities 03/13/2016 Diabetes mellitus ([facility]) Dystrophic nail 11/15/2016 Foot cramps Foot ulcer ([facility]) 02/25/2019 OTHER PART OF FOOT Fracture of third toe, left, closed 02/15/2016 Fungal toenail infection 11/15/2016 GERD (gastroesophageal reflux disease) Glaucoma both eyes Heart murmur High cholesterol 03/27/2015 Hyperlipidemia Hypertension Ingrown toenail 10/30/2015 Leg cramps Metatarsalgia of both feet 10/07/2016 Neuropathy Non-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 ([facility]) 09/06/2016 Non-pressure chronic ulcer of left lower leg with fat layer exposed ([facility]) 03/28/2017 Non-pressure chronic ulcer of other part of left foot with fat layer exposed ([facility]) 08/14/2017 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 involvement without evidenceof necrosis ([facility]) 03/14/2017 Non-pressure chronic ulcer of right ankle limited to breakdown of skin ([facility]) 08/14/2016 Nondisplaced fracture of proximal phalanx of right great toe 09/19/2017 Onychomycosis 12/13/2015 Osteomyelitis ([facility]) 04/23/2019 Peripheral vascular disease ([facility]) 08/17/2019 Pre-ulcerative calluses 08/13/2018 Right foot ulcer ([facility]) 09/26/2014 Shortness of breath Sprain of calcaneofibular ligament of right ankle 12/05/2017 Swelling of both ankles Swelling of both lower extremities Thyroid disorder 03/27/2015 Tinea unguium 08/13/2018 Traumatic closed fracture of phalanx of foot with minimal displacement 08/11/2017 Traumatic closed nondisplaced fracture of phalanx of right foot with delayed healing 09/08/2017 Type 2 diabetes mellitus with diabetic neuropathy ([facility]) 11/11/2017 Diabetic autonomic (poly) neuropathy Type 2 diabetes mellitus with foot ulcer ([facility]) 06/19/2016 Type 2 diabetes, uncontrolled, with peripheral circulatory disorder ([facility]) 03/28/2017 Xerosis cutis 01/17/2016 Past [...] clean dry and intact transtion back to [facility] boot with Pegassist -Follow-up in 1 weeks to review. documented in this [id number] Instructions* Patient Instructions* Jef Sierra Jr., DPM - 01/30/2021 10:50 AM EST Continue ashu at home documented in this [id number] History of Present illness Narrative* Jef Sierra [...] without toes, left 01/26/2019 Asthma Atherosclerosis of tlingit & ha[place] arteries of left leg with ulceration of other part of foot ([facility]) 03/14/2017 Back problem Bilateral foot-drop [...] 11/11/2017 Corns and callosities 03/13/2016 Diabetes mellitus ([facility]) Dystrophic nail 11/15/2016 Foot cramps Foot ulcer ([facility]) 02/25/2019 OTHER PART OF FOOT [...] left lower leg with fat layer exposed ([facility]) 03/28/2017 Non-pressure chronic ulcer of other part of left foot with fat layer exposed ([facility]) 08/14/2017 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 involvement without evidenceof necrosis ([facility]) 03/14/2017 Non-pressure chronic ulcer of right ankle limited to breakdown of skin ([facility]) 08/14/2016 Nondisplaced fracture of proximal phalanx of right great toe 09/19/2017 Onychomycosis 12/13/2015 Osteomyelitis ([facility]) 04/23/2019 Peripheral vascular disease ([facility]) 08/17/2019 Pre-ulcerative calluses 08/13/2018 Right foot ulcer ([facility]) 09/26/2014 Shortness of breath Sprain of calcaneofibular ligament of right ankle 12/05/2017 Swelling of both ankles Swelling of both lower extremities Thyroid disorder 03/27/2015 Tinea unguium 08/13/2018 Traumatic closed fracture of phalanx of foot with minimal displacement 08/11/2017 Traumatic closed nondisplaced fracture of phalanx of right foot with delayed healing 09/08/2017 Type 2 diabetes mellitus with diabetic neuropathy ([facility]) 11/11/2017 Diabetic autonomic (poly) neuropathy Type 2 diabetes mellitus with foot ulcer ([facility]) 06/19/2016 Type 2 diabetes, uncontrolled, with peripheral circulatory disorder ([facility]) 03/28/2017 Xerosis cutis 01/17/2016 Past [...] 1 weeks to review. documented in this [id number] History of Present illness Narrative* Jef Sierra [...] without toes, left 01/26/2019 Asthma Atherosclerosis of tlingit & ha[place] arteries of left leg with ulceration of other part of foot ([facility]) 03/14/2017 Back problem Bilateral foot-drop 02/01/2016 Callus of foot 03/16/2019 Cataract Cellulitis and abscess of foot excluding toe 09/26/2014 Cellulitis of great toe, right 10/30/2015 Cellulitis of left foot 08/14/2017 Cellulitis of left lower limb 09/01/2015 Cellulitis of right toe 11/15/2015 Cellulitis of second toe of right foot 11/15/2016 Chronic ulcer of great toe of left foot ([facility]) 03/27/2015 Closed displaced fracture of first metatarsal bone 02/01/2016 Closed displaced fracture of first metatarsal bone of left foot with routine healing 04/17/2015 Contusion of great toe, right 11/04/2016 Contusion of right foot 11/11/2017 Corns and callosities 03/13/2016 Diabetes mellitus ([facility]) Dystrophic nail 11/15/2016 Foot cramps Foot ulcer ([facility]) 02/25/2019 OTHER PART OF FOOT Fracture of third toe, left, closed 02/15/2016 Fungal toenail infection 11/15/2016 GERD (gastroesophageal reflux disease) Glaucoma both eyes Heart murmur High cholesterol 03/27/2015 Hyperlipidemia Hypertension Ingrown toenail 10/30/2015 Leg cramps Metatarsalgia of both feet 10/07/2016 Neuropathy Non-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 ([facility]) 09/06/2016 Non-pressure chronic ulcer of left lower leg with fat layer exposed ([facility]) 03/28/2017 Non-pressure chronic ulcer of other part of left foot with fat layer exposed ([facility]) 08/14/2017 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 involvement without evidenceof necrosis ([facility]) 03/14/2017 Non-pressure chronic ulcer of right ankle limited to breakdown of skin ([facility]) 08/14/2016 Nondisplaced fracture of proximal phalanx of right great toe 09/19/2017 Onychomycosis 12/13/2015 Osteomyelitis ([facility]) 04/23/2019 Peripheral vascular disease ([facility]) 08/17/2019 Pre-ulcerative calluses 08/13/2018 Right foot ulcer ([facility]) 09/26/2014 Shortness of breath Sprain of calcaneofibular ligament of right ankle 12/05/2017 Swelling of both ankles Swelling of both lower extremities Thyroid disorder 03/27/2015 Tinea unguium 08/13/2018 Traumatic closed fracture of phalanx of foot with minimal displacement 08/11/2017 Traumatic closed nondisplaced fracture of phalanx of right foot with delayed healing 09/08/2017 Type 2 diabetes mellitus with diabetic neuropathy ([facility]) 11/11/2017 Diabetic autonomic (poly) neuropathy Type 2 diabetes mellitus with foot ulcer ([facility]) 06/19/2016 Type 2 diabetes, uncontrolled, with peripheral circulatory disorder ([facility]) 03/28/2017 Xerosis cutis 01/17/2016 Past [...] 1 weeks to review. documented in this [id number] Instructions* Patient Instructions* Jef Sierra Jr., DPM - 01/16/2021 11:27 AM EST Keep bandage clean dry and intat documented in this [id number] History of Present illness Narrative* Jef Sierra [...] without toes, left 01/26/2019 Asthma Atherosclerosis of tlingit & ha[place] arteries of left leg with ulceration of [...] 11/11/2017 Corns and callosities 03/13/2016 Diabetes mellitus ([facility]) Dystrophic nail 11/15/2016 Foot cramps Foot ulcer ([facility]) 02/25/2019 OTHER PART OF FOOT Fracture of third toe, left, closed 02/15/2016 Fungal toenail infection 11/15/2016 GERD (gastroesophageal reflux disease) Glaucoma both eyes Heart murmur High cholesterol 03/27/2015 Hyperlipidemia Hypertension Ingrown toenail 10/30/2015 Leg cramps Metatarsalgia of both feet 10/07/2016 Neuropathy Non-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 ([facility]) 09/06/2016 Non-pressure chronic ulcer of left lower leg with fat layer exposed ([facility]) 03/28/2017 Non-pressure chronic ulcer of other part of left foot with fat layer exposed ([facility]) 08/14/2017 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 involvement without evidenceof necrosis ([facility]) 03/14/2017 Non-pressure chronic ulcer of right ankle limited to breakdown of skin ([facility]) 08/14/2016 Nondisplaced fracture of proximal phalanx of right great toe 09/19/2017 Onychomycosis 12/13/2015 Osteomyelitis ([facility]) 04/23/2019 Peripheral vascular disease ([facility]) 08/17/2019 Pre-ulcerative calluses 08/13/2018 Right foot ulcer ([facility]) 09/26/2014 Shortness of breath Sprain of calcaneofibular ligament of right ankle 12/05/2017 Swelling of both ankles Swelling of both lower extremities Thyroid disorder 03/27/2015 Tinea unguium 08/13/2018 Traumatic closed fracture of phalanx of foot with minimal displacement 08/11/2017 Traumatic closed nondisplaced fracture of phalanx of right foot with delayed healing 09/08/2017 Type 2 diabetes mellitus with diabetic neuropathy ([facility]) 11/11/2017 Diabetic autonomic (poly) neuropathy Type 2 diabetes mellitus with foot ulcer ([facility]) 06/19/2016 Type 2 diabetes, uncontrolled, with peripheral circulatory disorder ([facility]) 03/28/2017 Xerosis cutis 01/17/2016 Past [...] 1 weeks to review. documented in this [id number] Instructions* Patient Instructions* Jef Sierra Jr., DPM - 01/09/2021 8:49 AM EST Keep bandage clean dry and intact documented in this [id number] Instructions* Patient Instructions* Jef Sierra Jr., DPM - 01/02/2021 9:19 AM EST Keep bandages clean dry and intact for week documented in this [id number] History of Present illness Narrative* Jef Sierra [...] without toes, left 01/26/2019 Asthma Atherosclerosis of tlingit & ha[place] arteries of left leg with ulceration of [...] 11/11/2017 Corns and callosities 03/13/2016 Diabetes mellitus ([facility]) Dystrophic nail 11/15/2016 Foot cramps Foot ulcer ([facility]) 02/25/2019 OTHER PART OF FOOT Fracture of third toe, left, closed 02/15/2016 Fungal toenail infection 11/15/2016 GERD (gastroesophageal reflux disease) Glaucoma both eyes Heart murmur High cholesterol 03/27/2015 Hyperlipidemia Hypertension Ingrown toenail 10/30/2015 Leg cramps Metatarsalgia of both feet 10/07/2016 Neuropathy Non-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 ([facility]) 09/06/2016 Non-pressure chronic ulcer of left lower leg with fat layer exposed ([facility]) 03/28/2017 Non-pressure chronic ulcer of other part of left foot with fat layer exposed ([facility]) 08/14/2017 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 involvement without evidenceof necrosis ([facility]) 03/14/2017 Non-pressure chronic ulcer of right ankle limited to breakdown of skin ([facility]) 08/14/2016 Nondisplaced fracture of proximal phalanx of right great toe 09/19/2017 Onychomycosis 12/13/2015 Osteomyelitis ([facility]) 04/23/2019 Peripheral vascular disease ([facility]) 08/17/2019 Pre-ulcerative calluses 08/13/2018 Right foot ulcer ([facility]) 09/26/2014 Shortness of breath Sprain of calcaneofibular ligament of right ankle 12/05/2017 Swelling of both ankles Swelling of both lower extremities Thyroid disorder 03/27/2015 Tinea unguium 08/13/2018 Traumatic closed fracture of phalanx of foot with minimal displacement 08/11/2017 Traumatic closed nondisplaced fracture of phalanx of right foot with delayed healing 09/08/2017 Type 2 diabetes mellitus with diabetic neuropathy ([facility]) 11/11/2017 Diabetic autonomic (poly) neuropathy Type 2 diabetes mellitus with foot ulcer ([facility]) 06/19/2016 Type 2 diabetes, uncontrolled, with peripheral circulatory disorder ([facility]) 03/28/2017 Xerosis cutis 01/17/2016 Past [...] 1 weeks to review. documented in this [id number] NoteProcedure date: 12/27/2020. Intraocular injection: 1.25 mg Bevacizumab (AVASTIN) 2.5mg/0.1 ML syringe ND: [id number], Lot: [id number], Expiration date: 12/29/2020 Route: Intravitreal, Site: Left Eye Notes Bevacizumab (Avastin) Intraocular Injection Left Eye - OPHTHALMOLOGY PROCEDURE NOTE PROCEDURE PERFORMED BY: Sharon Hernandez MD [employer] COUNTER ATTENDANT(S): None ATTENDING: Sharon Hernandez MD PROCEDURE DATE: 12/27/2020 PROCEDURE START TIME: 10:17 AM INDICATIONS: Treatment of ICD-10-CM 1. Diabetic macular edema E11.311 OCT/HRT MACULA OU FUNDUS PHOTOGRAPHY-OU MI BEVACIZUMAB SOLN - OS MI BEVACIZUMAB SOLN - OS CANCELED: MI BEVACIZUMAB SOLN - OD EYE: Left (OS) [...] THIS PROCEDURE REQUIRE A UNIVERSAL PROTOCOL? Yes. Jonancy Protocol is required. Pre-procedure verification was completed. [...] sterile saline and an antibiotic drop was instilled.[facility]11-10-2021 NoteProcedure date: 12/27/2020. Right Eye Clear. [...] better. Recommendation for management is to continue treatment.[facility]11-02-2021 Instructions* Patient Instructions* Jef Sierra Jr., DPM - 12/19/2020 11:28 AM EDT Keep bandage clean dry and intact documented in this [id number] History of Present illness Narrative* Jef Sierra [...] without toes, left 01/26/2019 Asthma Atherosclerosis of tling[place] & [place] arteries of left leg with ulceration of other part of foot ([facility]) 03/14/2017 Back problem Bilateral foot-drop [...] 11/11/2017 Corns and callosities 03/13/2016 Diabetes mellitus ([facility]) Dystrophic nail 11/15/2016 Foot cramps Foot ulcer ([facility]) 02/25/2019 OTHER PART OF FOOT Fracture of third toe, left, closed 02/15/2016 Fungal toenail infection 11/15/2016 GERD (gastroesophageal reflux disease) Glaucoma both eyes Heart murmur High cholesterol 03/27/2015 Hyperlipidemia Hypertension Ingrown toenail 10/30/2015 Leg cramps Metatarsalgia of both feet 10/07/2016 Neuropathy Non-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 ([facility]) 09/06/2016 Non-pressure chronic ulcer of left lower leg with fat layer exposed ([facility]) 03/28/2017 Non-pressure chronic ulcer of other part of left foot with fat layer exposed ([facility]) 08/14/2017 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 involvement without evidenceof necrosis ([facility]) 03/14/2017 Non-pressure chronic ulcer of right ankle limited to breakdown of skin ([facility]) 08/14/2016 Nondisplaced fracture of proximal phalanx of right great toe 09/19/2017 Onychomycosis 12/13/2015 Osteomyelitis ([facility]) 04/23/2019 Peripheral vascular disease ([facility]) 08/17/2019 Pre-ulcerative calluses 08/13/2018 Right foot ulcer ([facility]) 09/26/2014 Shortness of breath Sprain of calcaneofibular ligament of right ankle 12/05/2017 Swelling of both ankles Swelling of both lower extremities Thyroid disorder 03/27/2015 Tinea unguium 08/13/2018 Traumatic closed fracture of phalanx of foot with minimal displacement 08/11/2017 Traumatic closed nondisplaced fracture of phalanx of right foot with delayed healing 09/08/2017 Type 2 diabetes mellitus with diabetic neuropathy ([facility]) 11/11/2017 Diabetic autonomic (poly) neuropathy Type 2 diabetes mellitus with foot ulcer ([facility]) 06/19/2016 Type 2 diabetes, uncontrolled, with peripheral circulatory disorder ([facility]) 03/28/2017 Xerosis cutis 01/17/2016 Past [...] Friends and Family: Not on file Attends [employer] Services: Not on file Active Member of [...] 1 weeks to review. documented in this [id number] NoteProcedure date: 12/13/2020. Right Eye Clear. Disc [...] same. Recommendation for management is to continue treatment.[facility]10-27-2021 Note Procedure date: 12/13/2020. Right Eye Quality was good. Findings include subretinal fluid. Interval change is same. Recommendation for management is to continue treatment. Left Eye Quality was good. Findings include subretinal fluid. Interval change is same. Recommendation for management is to continue treatment.[facility]10-27-2021 NoteProcedure date: 12/13/2020. Intraocular injection: 1.25 mg Bevacizumab (AVASTIN) 2.5mg/0.1 ML syringe [facility] [place]: 13409-441-18, Lot: [id number], Expiration date: 12/26/2020 Route: Intravitreal, Site: Right Eye Notes Bevacizumab (Avastin) Intraocular Injection Right Eye - OPHTHALMOLOGY PROCEDURE NOTE PROCEDURE PERFORMED BY: Sharon Hernandez MD CAFETERIA COUNTER ATTENDANT(S): None ATTENDING: Sharon Hernandez MD PROCEDURE DATE: 12/13/2020 PROCEDURE START TIME: 10:05 AM INDICATIONS: Treatment of ICD-10-CM 1. Diabetic macular edema E11.311 bevacizumab 1.25 MG/0.05 ML Solution MI BEVACIZUMAB SOLN - OD OCT/HRT MACULA OU FUNDUS PHOTOGRAPHY-OU MI BEVACIZUMAB SOLN - OD OCT/HRT MACULA OU [...] THIS PROCEDURE REQUIRE A UNIVERSAL PROTOCOL? Yes. Jonancy Protocol is required. Pre-procedure verification was completed. [...] sterile saline and an antibiotic drop was instilled.[facility]08-31-2021 History of Present illness Narrative * [...] as wellas elevated morbidity. documented in this [id number] NoteProcedure date: 10/10/2020. Right Eye Quality was good. Interval change is same. Recommendation for management is to change treatment. Left Eye Quality was poor. Interval change is same. Recommendation for management is to change treatment. Notes OD: inferior thinning, stable to 2019 OS: polar thinning, stable to 2019 GCC: OD: stable inferotemporal thinning OS: complicated by poor quality scan due to [id number] History of Present illness Narrative* Olga Lidia [...] all questions answered Olga Lidia Matos M.D. [employer] Sales of Ophthalmology Glaucoma Division [facility] Department of Ophthalmology and Visual Science Chief [...] OS with Dr. Hernandez. Additional details from [facility] HPI reviewed and I agree with documentation Ocular Medications: 10/10/2020 Exam: CCT: TY=382 m; IK=069 m IOP: OD: 25, OS: 16, 10/10/2020 [...] time was spent with patient performing the management technician work of this visit. [facility] Instructions* Patient Instructions* Olga Lidia Matos MD - 10/10/2020 1:45 PM EDT Right Eye: Dorzolamide/Timolol 2 times a day Rhopressa 1 drop at bedtime Left Eye: Dorzolamide/Timolol 2 times a day documented in [facility] History of Present illness Narrative* Jovon L Freimer, MD - 10/03/2020 9:30 AM EDT I was available on site at [place] for any urgent infusion issues. Jovon Bowers MD Professor of Neurology Director, Neuromuscular Division documented in this [facility] History of Present illness Narrative* Franck Mtz [...] UNIT/ML Solution Pen-injector injection, 3 samples given--Lot [id number], exp 10/2021, Disp: 3 Prefilled Pen/Syringe, Rfl: 0 Insulin Lispro, 1 Unit Dial, 100 UNIT/ML Solution Pen-injector, Use less than 30 units daily with sliding scale., Disp: 5 Prefilled Pen/Syringe, Rfl: 3 Multiple Vitamin (MULTI-DAY PO), take 1 tablet by mouth daily.., Disp: , Rfl: tiZANidine 4 MG Tab tablet, tiZANidinetiZANidine (ZANAFLEX) 4 MG tablet as needed. Lolly Haq [facility] ([id number]), Disp: , Rfl: acetaZOLAMIDE 250 MG tablet, Take 1 tablet by mouth 2 times daily. 90 day supply (Patient not taking: Reported on 09/13/2020), Disp: 180 tablet, Rfl: 1 cyanocobalamin 1000 MCG Tab, Take 2 tablets by mouth daily., Disp: 60 tablet, Rfl: 11 Insulin Degludec (Tresiba FlexTouch) 100 UNIT/ML Solution Pen-injector injection, 3 Samples given [id number], Exp 10/2021 (Patient not taking: Reported on 09/26/2020), Disp: 9 mL, Rfl: 0 Insulin Lispro, 1 Unit Dial, (HumaLOG KwikPen) 100 UNIT/ML Solution Pen- injector, Sample given [id number], exp 09/2022 (Patient not taking: Reported on 09/13/2020), Disp: 1 Prefilled Pen/Syringe, Rfl: 0 Insulin Lispro, 1 Unit Dial, (HumaLOG KwikPen) 100 UNIT/ML Solution Pen- injector, Sample given [id number], Exp-09/2022 (Patient not taking: Reported on 09/26/2020), [...] Social Gatherings with Friends and Family: Attends [employer] Services: Active Member of Clubs or Organizations: Attends Club or Organization Meetings: Marital Status: Intimate Partner Violence: Fear of Current or Ex-Partner: Emotionally Abused: Physically Abused: Sexually Abused: documented in this [facility]08-10-2021 Instructions* Patient Instructions* Franck Mtz MD [...] your results come back. documented in this [facility]08-05-2021 History of Present illness Narrative* Sania Johnson DO - 09/21/2020 11:30 AM EDT The patient tolerated the infusion well without any complications. documented in this [facility]07-29-2021 History of Present illness Narrative* Jef [...] without toes, left 01/26/2019 Asthma Atherosclerosis of t[place] arteries of left leg with ulceration of other part of foot ([facility]) 03/14/2017 Back problem Bilateral foot-drop 02/01/2016 Callus of foot 03/16/2019 Cataract Cellulitis and abscess of foot excluding toe 09/26/2014 Cellulitis of great toe, right 10/30/2015 Cellulitis of left foot 08/14/2017 Cellulitis of left lower limb 09/01/2015 Cellulitis of right toe 11/15/2015 Cellulitis of second toe of right foot 11/15/2016 Chronic ulcer of great toe of left foot ([facility]) 03/27/2015 Closed displaced fracture of first metatarsal bone 02/01/2016 Closed displaced fracture of first metatarsal bone of left foot with routine healing 04/17/2015 Contusion of great toe, right 11/04/2016 Contusion of right foot 11/11/2017 Corns and callosities 03/13/2016 Diabetes mellitus ([facility]) Dystrophic nail 11/15/2016 Foot cramps Foot ulcer ([facility]) 02/25/2019 OTHER PART OF FOOT Fracture of third toe, left, closed 02/15/2016 Fungal toenail infection 11/15/2016 GERD (gastroesophageal reflux disease) Glaucoma both eyes Heart murmur High cholesterol 03/27/2015 Hyperlipidemia Hypertension Ingrown toenail 10/30/2015 Leg cramps Metatarsalgia of both feet 10/07/2016 Neuropathy Non-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 ([facility]) 09/06/2016 Non-pressure chronic ulcer of left lower leg with fat layer exposed ([facility]) 03/28/2017 Non-pressure chronic ulcer of other part of left foot with fat layer exposed ([facility]) 08/14/2017 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 involvement without evidenceof necrosis ([facility]) 03/14/2017 Non-pressure chronic ulcer of right ankle limited to breakdown of skin ([facility]) 08/14/2016 Nondisplaced fracture of proximal phalanx of right great toe 09/19/2017 Onychomycosis 12/13/2015 Osteomyelitis ([facility]) 04/23/2019 Peripheral vascular disease ([facility]) 08/17/2019 Pre-ulcerative calluses 08/13/2018 Right foot ulcer ([facility]) 09/26/2014 Shortness of breath Sprain [...] 2 diabetes, uncontrolled, with peripheral circulatory disorder ([facility]) 03/28/2017 Xerosis cutis 01/17/2016 Past [...] Social Gatherings with Friends and Family: Attends [employer] Services: Active Member of Clubs or Organizations: [...] diabetes andneed for procedure. documented in this [id number] History of Present illness Narrative* Luis Miguel [...] a neurologist. She is also seeing a oxygen therapist and wound care. She has a follow-up [...] feels. To get her in touch with [employer], however she does not answer her phone if she does not recognize the number, so likely has been missing their calls. We will coordinate with [employer]; the tracking features of [employer] will undoubtedly help us help her. Hypothyroidism: [...] The patient is nervous/anxious. Patient last seen perioperative educator 01/27/2018 Nursing Assessment: Physical Exam [facility] Diagnosis Asthma, unspecified asthma [...] evidenceof necrosis (HCC) [facility] Diagnosis Great toe pain, left- Primary Foot abscess, left Cellulitis and abscess of foot, except toes [facility] Diagnosis Chronic ulcer of great toe of left foot, unspecified ulcer stage (HCC)- Primary [facility] Diagnosis Ulcer of left foot with fat layer exposed (HCC)- Primary [facility] Diagnosis Ulcer of left foot with fat layer exposed (HCC)- Primary [facility]* Diagnosis Non-pressure chronic ulcer of other part of left foot with fat layer exposed (HCC)- Primary Ulcer of left foot with fat layer exposed (HCC) [facility]* Diagnosis 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)- Primary [facility] Diagnosis 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) [facility]* Diagnosis 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)- Primary [facility]* Diagnosis Partial thickness burn of single finger of right hand excluding thumb, initial encounter- Primary Wound infection Posttraumatic wound infection not elsewhere classified Laceration of right thumb, initial encounter [facility]* Diagnosis 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 [facility]* Diagnosis Type 2 diabetes mellitus with diabetic polyneuropathy, with long-term current use of insulin- Primary Acquired hypothyroidism Unspecified hypothyroidism Diabetic macular edema- Primary [facility] Diagnosis 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 Diabetic macular edema- Primary [facility]* Diagnosis 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 Diabetic macular edema- Primary [facility]* Diagnosis 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 Diabetic macular edema- Primary [facility] Diagnosis 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 Diabetic macular edema- Primary [facility] Diagnosis Primary open angle glaucoma (POAG) of right eye, severe stage- Primary Primary open angle glaucoma (POAG) of left eye, severe stage Diabetic macular edema Pseudophakia Lens replaced by other means documented [facility] Diagnosis Non-intractable vomiting with nausea, unspecified vomiting type- Primary Altered mental status, unspecified altered mental status type Leukocytosis, unspecified type documented in this encounter [employer] Phone: evaluation note* Diagnosis Sepsis ([facility])- Primary Stupor Other alteration of consciousness Encephalitis Unspecified cause of encephalitis, myelitis, and encephalomyelitis Acute osteomyelitis of cervical spine ([facility]) 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 MSSA (methicillin susceptible Staphylococcus aureus) septicemia ([facility]) Methicillin susceptible staphylococcus aureus septicemia Primary hypertension Unspecified essential hypertension Altered mental state Altered mental status Encephalopathy Encephalopathy, unspecified CIDP (chronic inflammatory demyelinating polyneuropathy) ([facility]) Chronic inflammatory demyelinating polyneuritis Bacteremia Hypothyroidism Unspecified hypothyroidism Hypokalemia Hypopotassemia Type 2 diabetes mellitus with diabetic polyneuropathy ([facility]) Type II or unspecified type diabetes mellitus with neurological manifestations, not stated as uncontrolled Upper GI bleed Hemorrhage of gastrointestinal tract, unspecified Non-intractable vomiting Unintentional weight loss Loss of weight Acute metabolic encephalopathy CRP elevated Elevated C-reactive protein (CRP) Bandemia Allergy to multiple antibiotics Other drug allergy Pyogenic inflammation of bone ([facility]) Unspecified osteomyelitis, site unspecified Acute intractable headache documented in this encounter [facility] Phone: evaluation note* Diagnosis COVID-19- Primary Pneumonia of left lower lobe due to infectious organism Hypokalemia Hypopotassemia Hypomagnesemia Disorders of magnesium metabolism FPC (current) use of antibiotics documented in this encounter [facility] Phone: evaluation note* Diagnosis COVID- Primary Encephalopathy Encephalopathy, unspecified 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 Hypokalemia Hypopotassemia Primary hypertension Unspecified essential hypertension Type 2 diabetes mellitus with diabetic polyneuropathy ([facility]) Type II or unspecified type [...] cause, initial encounter documented in this encounter [employer] Phone: evaluation noteNo assessment information available [facility] Work Phone: Evaluation note* Diagnosis Atlantoaxial instability Other joint derangement, not elsewhere classified, other specified site S/P cervical spinal fusion Arthrodesis status documented in this encounter [employer] Phone: evalfphgvw note* Diagnosis S/P cervical spinal fusion Arthrodesis status documented in this encounter [employer] Phone: evalpqqdck note* Diagnosis Primary open angle glaucoma (POAG) of both eyes, moderate stage- Primary 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 mellitus (CMS/HCC) Left posterior capsular opacification Unspecified after-cataract Dry eyes Unspecified tear film insufficiency [facility] Diagnosis Other atopic dermatitis- Primary Traumatic ulcer of left foot, unspecified ulcer stage ([facility]) Impetigo documented in this [facility] [...] Cough, unspecified type documented in this encounter [facility]* Diagnosis Hypocalcemia- Primary Current mild episode of major depressive disorder, unspecified whether recurrent documented in this encounter [facility]* Diagnosis Gastroesophageal reflux disease [...] use of insulin Luis Miguel Kaur MD [address] [place] [address] History of Present Illness * Luis Miguel [...] a neurologist. 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 [ [address] [place] [address]: [place] Office - [address] [address] - Phone Number [phone] [place] Office - [address] [facility] [address] - Phone Number [phone] ] Rest and limit exertion / strenous activity. RETURN if symptoms CHANGE, NOT IMPROVING or need help.Take Medications as prescribed (if prescribed - Please take or use as directed) * Attachments The following attachments cannot be sent through Care Everywhere. * Cellulitis (Nigerian) in this encounter* Instructions* Andres Lubin MD [...] sent through Care Everywhere. * Nail Avulsion (Nigerian) documented in this encounter Additional Source Comments [...] CIDP (chronic inflammatory demyelinating polyneuropathy) Krystyna Busby [facility] [address] [facility] [id number] [place] [address] Infusion Suite [facility] [address] [place] [address] Referral IDStatusReasonStart DateExpiration DateVisits RequestedVisits [id number] Not Needed06/24/[id number]-oaXcvfwfik Thyroid ProblemReasonCommentsInfusion VisitIVIGSpecialtyDiagnoses / Procedures Referred By ContactReferred To Contact Diagnoses CIDP (chronic inflammatory demyelinating polyneuropathy) Krystyna Busby [facility] [address] [facility] [id number] [place] [id number] Infusion Suite [facility] [address] [place] [address] PymotsIfdqjawlQyoaws-tcPllouwMzhjfoohVcncvmqmJimsaq-geOxhaykWurtunzoXtgbuqBw came from [facility]. Per EMS she was outside and was brought back inside they were unaware she was outside. Per [facility] she is having bizarre behaviorEmesisAltered Mental StatusReasonCommentsAltered Mental Status SpecialtyDiagnoses / ProceduresReferred By ContactReferred To Contact Diagnoses Altered mental state [facility] Emergency Dept [address] [place] [address] [facility] [address] [place] [address] Referral IDStatusReasonStart DateExpiration DateVisits RequestedVisits [id number]yoPutjdut was at outpatient infusion center for blood transfusion/low potassium transferred to ED forevaluationReason CommentsFollow-upEye ExamReasonCommentsEczemaReasonCommentsGlaucomaReasonOnset DateCommentsMed Dfrgji7112/13/2024 INFORMATION SOURCE (unrecogn ized section and content) DATE CREATED AUTHOR 04/08/2018 [facility] DATE CREATED AUTHOR AUTHOR'S ORGANIZ ATION 06/07/2019 [facility] DATE CREATED AUTHOR AUTHOR'S ORGANIZ ATION 12/25/2019 [facility] DATE CREATED AUTHOR AUTHOR'S ORGANIZ ATION 02/13/2020 [facility] DATE CREATED AUTHOR AUTHOR'S ORGANIZ ATION 04/18/2021 [facility] DATE CREATED AUTHOR AUTHOR'S ORGANIZ ATION 05/02/2021 [facility] DATE CREATED AUTHOR AUTHOR'S ORGANIZ ATION 05/07/2021 [facility] DATE CREATED AUTHOR AUTHOR'S ORGANIZ ATION 05/09/[address] [facility] DATE CREATED AUTHOR AUTHOR'S ORGANIZ ATION 05/15/2021 [facility] DATE CREATED AUTHOR AUTHOR'S ORGANIZ ATION 06/01/2021 [facility] DATE CREATED AUTHOR AUTHOR'S ORGANIZ ATION 06/13/2021 [facility] DATE CREATED AUTHOR AUTHOR'S ORGANIZ ATION 09/05/2021 [facility] DATE CREATED AUTHOR AUTHOR'S ORGANIZ ATION 10/30/2021 [facility] DATE CREATED AUTHOR AUTHOR'S ORGANIZ ATION 11/27/[address] [facility] DATE CREATED AUTHOR AUTHOR'S ORGANIZ ATION 12/10/2021 [facility] DATE CREATED AUTHOR AUTHOR'S ORGANIZ ATION 11/25/2022 [facility] DATE CREATED AUTHOR AUTHOR'S ORGANIZ ATION 01/26/2023 [facility] DATE CREATED AUTHOR AUTHOR'S ORGANIZ ATION 05/07/2024 [facility] DATE CREATED AUTHOR AUTHOR'S ORGANIZ ATION 09/28/2024 [facility] EPIC Lindsey Bradshaw LPN [...] Date Neri Purcell DO [address] [place] [address] PCP - GeneralFamily Medicine03/28/17 Pili Gilliam DPM Consulting PhysicianPodiatr04/07/17 Reji Miramontes III, DO Consulting PhysicianVascular Surgery04/07/17Te MemberRelationshipSpecialtyStart DateEnd Date Neri Purcell, DO [address] [place] [address] PCP - GeneralFamily Medicine03/28/17 Pili Gilliam, MARK Consulting PhysicianPodiatry2 Reji Miramontes III, DO Consulting PhysicianVascular Surgery04/07/17Te MemberRelationshipSpecialtyStart [facility] Neri Purcell, DO [address] [place] [address] PCP - Generalmily Medicine03/28/17 Pili Gilliam, DPM Consulting PhysicianPodiatry2 Reji Miramontes III, DO Consulting PhysicianVascular Surgery04/07/17Te MemberRelationshipSpecialtyStart DateHouston [facility] Neri Purcell, DO [address] [place] [address] PCP - Generalmily Medicine03/28/17 Pili Gilliam, DPM Consulting PhysicianPodiatry2 Reji Miramontes III, DO Consulting PhysicianVascular Surgery04/07/17Te MemberRelationshipSpecialtyStart DateHouston [facility] Neri Purcell, DO [address] [place] [address] PCP - GeneralFamily Medicine03/28/17 Pili Gilliam, MARK Consulting PhysicianPodiatry2 Reji Miramontes III, DO Consulting PhysicianVascular Surgery04/07/17Te MemberRelationshipSpecialtyStart [facility] Neri Purcell, DO [address] [place] [address] PCP - GeneralFamily Medicine03/28/17 Pili Gilliam, MARK Consulting PhysicianPodiatry2 Reji Miramontes III, DO Consulting PhysicianVascular Surgery04/07/17Te MemberRelationshipSpecialtyStMetropolitan Hospital Neri Purcell, DO [address] [place] [address] PCP - Generalmily Medicine03/06/17 Skylar Hernandez MD [address] [place] [address] Ophthalmology07/18/17 Kartik Mejia MD [address] [place] [address] [place] [address] Pain Jfybcubt05/8/18 Tisha Arriaga MD [address] [place] [address] NeurologistNeurology07/18/17 Luis Miguel Kaur MD [address] [place] [address] EndocrinologistEndocrinology, Diabetes & Metabolism03/06/17 Chris Zavala, OD [address] [place] [address] Optometry03/15/20Te MemberRelationshipSpecialtyStart [facility] State HospitalNeri, DO [address] [place] [address] PCP - [facility]En[facility] Medicine03/06/17 Skylar Hernandez MD [address] [place] [address] Ophthalmology07/18/17 Kartik Mejia MD [address] [place] [address] Pain Puksycks65/8/18 Tisha Arriaga MD [address] [place] [address] NeurologistNeurology07/18/17 Luis Miguel Kaur MD [address] [place] [address] EndocrinologistEndocrinology, Diabetes & Metabolism03/06/17 PlacerChris, OD [address] [place] [address] Optometry03/15/20Te MemberRelationshipSpecialtyStRed River Behavioral Health SystemNeri, DO [address] [place] [address] PCP - [facility] Medicine03/06/17 Skylar Hernandez MD [address] [place] [address] Ophthalmology07/18/17 Kartik Mejia MD [address] [place] [address] Pain Pchqibze54/8/18 Tisha Arriaga MD [address] [place] [address] NeurologistNeurology07/18/17 Luis Miguel Kaur MD [address] [place] [address] EndocrinologistEndocrinology, Diabetes & Metabolism03/06/17 Chris Zavala, OD [address] [place] [address] Optometry03/15/20Team MemberRelationshipSpecialtyStart DateEnd Date RockfordNeri, [address] [place] [address] PCP - Generalmily Medicine03/06/17 Skylar Hernandez MD [address] [place] [address] Ophthalmology07/18/17 Kartik Mejia MD [address] [place] [address] Pain Gsjmdvhm03/8/18 Tisha Arriaga MD [address] [place] [address] NeurologistNeurology07/18/17 Luis Miguel Kaur MD [address] [place] [address] EndocrinologistEndocrinology, Diabetes & Metabolism03/06/17 Chris Zavala, OD [address] [place] [address] Optometry03/15/20Team MemberRelationshipSpecialtyStart DateEnd [facility], Neri Parker, DO [address] [place] [address] PCP - GeneralFamily Medicine03/06/17 Skylar Hernandez MD [address] [place] [address] Ophthalmology07/18/17 Kartik Mejia MD [address] [place] [address] Pain Weethyml48/8/18 Tisha Arriaga MD [address] [place] [address] NeurologistNeurology07/18/17 Luis Miguel Kaur MD [address] [place] [address] EndocrinologistEndocrinology, Diabetes & Metabolism03/06/17 Chris Zavala, OD [address] [place] [address] Optometry03/15/20Team MemberRelationshipSpecialtyStRed River Behavioral Health System, Neri Parker, DO [address] [place] [address] PCP - GeneralFamily Medicine03/06/17 Skylar Hernandez MD [address] [place] [address] Ophthalmology07/18/17 Kartik Mejia MD [address] [place] [address] Pain Clfhhgfz99/8/18 Tisha Arriaga MD [address] [place] [address] NeurologistNeurology07/18/17 Luis Miguel Kaur MD [address] [place] [address] EndocrinologistEndocrinology, Diabetes & Metabolism03/06/17 Chris Zavala, OD [address] [place] [address] Optometry03/15/20Team MemberRelationshipSpecialtyStart [facility], Neri Parker, DO [address] [place] [facility] [place] [address] PCP - GeneralFamily Medicine03/06/17 Skylar Hernandez MD [address] [place] [address] Ophthalmology07/18/17 Kartik Mejia MD [address] [place] [address] Pain Rppyiaro86/8/18 Tisha Arriaga MD [address] [place] [address] NeurologistNeurology07/18/17 Luis Miguel Kaur MD [address] [place] [address] EndocrinologistEndocrinology, Diabetes & Metabolism03/06/17 Chris Zavala, OD [address] [facility] [place] [address] Optometry03/15/20Team MemberRelationshipSpecialtyStart [facility], Neri Parker, DO [address] [place] [address] PCP - GeneralFamily Medicine07/19/18Team MemberRelationshipSpecialtyStart DateEnd Date [place], Sr Neri Parker, DO [address] [facility] [place] [address] PCP - GeneralFamily Medicine07/19/18Team MemberRelationshipSpecialtyStart DateEnd Date [place], Sr Neri Parker, DO [address] [facility] [place] [address] PCP - Generalmily Medicine07/19/18Team MemberRelationshipSpecialtyStart DateEnd Date [place], Sr Neri Parker, DO [address] [facility] [place] [address] PCP - [facility]En[facility] Medicine07/19/18 Team Status: Inactive Member Role Status Dates Rufus Perez II MD Attending Provider Active Team MemberRelationshipSpecialtyStart DateEnd Date Ganga Savage MD [address] [place] [address] PCP - GeneralInternal Medicine08/14/21Team MemberRelationshipSpecialtyStart Date End Date Ganga Savage MD [address] [place] [address] PCP - GeneralInternal Medicine08/14/21Team MemberRelationshipSpecialtyStart Date End Date Ganga Savage MD [address] [place] [address] PCP - GeneralInternal Medicine08/14/21Team MemberRelationshipSpecialtyStart Date End Date Neri Purcell MD [address] [place] [facility] [address] PCP - GeneralFamily Medicine08/12/22Team MemberRelationshipSpecialtyStart DateEnd Date Neri Purcell MD [address] [place] [facility] [place] [address] PCP - GeneralFamily Medicine08/12/22Team MemberRelationshipSpecialtyStart DateEnd Date Neri Purcell MD [address] [place] [facility] [place] [address] PCP - GeneralFamily Medicine08/12/22Team MemberRelationshipSpecialtyStart DateEnd Date Neri Purcell MD [address] [place] [facility] [place] [address] PCP - GeneralFamily Medicine08/12/22Team MemberRelationshipSpecialtyStart DateEnd Date Neri Purcell MD [address] [place] [facility] [place] [address] PCP - GeneralFamily Medicine08/12/22Team MemberRelationshipSpecialtyStart DateEnd Date Neri Purcell MD PCP - GeneralFamily Medicine08/12/22Team MemberRelationshipSpecialtyStart DateEnd Date Neri Purcell MD PCP - GeneralFamily Medicine08/12/22Team MemberRelationshipSpecialtyStart DateEnd Date Neri Purcell MD PCP - GeneralFamily Medicine08/12/22Team MemberRelationshipSpecialtyStart DateEnd Date Neri Purcell MD PCP - GeneralFamily Medicine08/12/22Team MemberRelationshipSpecialtyStart DateEnd Date [place], Neri P, MD PCP - [facility]08/12/22Te MemberRelationshipSSierra View District HospitalNeri Rosas MD PCP - [facility]08/12/22Te MemberRelationsSt. Mary's Medical Center Neri Wei MD PCP - [facility]08/12/22Te MemberRelationsSt. Mary's Medical Center Neri Wei MD [address] [place] [address] [address]CP - [facility]08/12/22 Scheduled Active and Recently Administ ered [...] RN) * 2028 (Given - Provider: Maggi Quiñones, RN) * 0914 (Given - Provider: Sebas [...] refused) * 0915 (Given - Provider: Sebas Arnold, VIRGIE) * 2100 (Due) sodium chloride [...] Sebas Arnold, RN) * 2100 (Due) Medication Order05/22/023957/// 0.9 % sodium chloride infusion IntraVENous, at [...] Fuente RN) * 1610 (Given - Provider: Yolanad De La Fuente RN) * 220 (Given - Provider: Lubna Peralta RN) * 1014 (Given - Provider: Anna Veliz RN) * 151 (Given - Provider: Anna Veliz RN) * 2199 (Due - Provider: Linn Duvall [facility]) insulin glargine (LANTUS) injection vial 10 Units [...] RN) * 1045 (Given - Provider: Alejandra oGldberg RN) * 1608 (Given - Provider: Alejandra [...] * 0448 (New Bag - Provider: Nany eNwman RN) * 0451 (Rate/Dose Verify - Provider: [...] Fri07/17/21 at 1700, Last dose on Fri07/19/21 [id number], Do not chew or crush. Dissolve flavored [...] * 220 (Due - Provider: Linn Duvall [facility]) valproic acid (DEPAKENE) 250 MG/5ML oral solution 250 mg 250 mg, Per NG tube, 2 TIMES DAILY, First dose on Fri08/02/21 at 2100, Until Discontinued * 0859 (Given - Provider: Alejandra Goldbreg RN) * 2051 (Given - Provider: Maggi [...] VIRGIE) * 1910 (Rate/Dose Verify - Provider: Anna Veliz, VIRGIE) [...] the iv AB is over - keep nursing home suppression 60 tablet 110rescriptionSigDispensedRefillsStart DateEnd oxyCODONE (ROXICODONE) [...] BE BASED ON THE PRIMARY CLINICAL RECORDS. [employer] provides no warranty or guarantee of the accuracy or completeness of information in this document.
[2025-01-15 22:14] LABS: Hematocrit 36.8 % (36.0-48.0); Hemoglobin 11.8 g/dL (12.0-16.0); Immature Granulocytes Abs Auto 0.03 10^3/uL (0.00-0.03); Immature Granulocytes Pct Auto 0.3 % (0.0-0.5); Lymphocytes Absolute Auto 2.9 10^3/uL (1.2-3.8); Mean Corpuscular HGB Conc 32.1 g/dL (29.9-35.2); Mean Corpuscular Hemoglobin 31.4 pg (26.7-34.0); Mean Corpuscular Volume 97.9 fL (81.0-99.0); Platelet Count 261 10^3/uL (150-450); Red Blood Count 3.76 10^6/uL (4.20-5.40); White Blood Count 8.7 10^3/uL (4.0-11.0)
[2025-01-15 22:16] LABS: Cast Seen? SEEN #/LPF (NONE SEEN); Crystals Seen? None Seen #/HPF (None Seen)
[2025-01-15 22:17] LABS: Urine Culture Indicated NO
[2025-01-15 22:25] LABS: Lactate/Lactic Acid 1.5 mmol/L (0.4-2.0)
[2025-01-15 22:32] LABS: Alanine Aminotransferase 19 U/L (14-59); Albumin Globulin Ratio 0.7; Albumin Level 2.9 g/dL (3.4-5.0); Alkaline Phosphatase 121 U/L (46-116); Anion Gap 10.8; Aspartate Amino Transferase 16 U/L (15-37); Blood Urea Nitrogen 25.0 mg/dL (7.0-18.0); Calcium 8.6 mg/dL (8.5-10.1); Carbon Dioxide 24.4 mmol/L (21.0-32.0); Chloride 106 mmol/L (98-107); Estimated GFR (African America 44 (>=60 mL/min/1.73m^2); Estimated GFR (Non-African Ame 36 (>=60 mL/min/1.73m^2); Globulin 4.3 g/dL; Glucose 232 mg/dL (74-106); Potassium 4.2 mmol/L (3.5-5.1); Sodium 137 mmol/L (136-145); Total Protein 7.2 g/dL (6.4-8.2)
--- NOTE | 2025-01-15 23:23 | ED.GENADUL1 ---
HPI HPI - General Adult General Chief complaint: Weakness Stated complaint: WEAKNESS Time Seen by Provider: 01/15/25 21:15 Source: patient Mode of arrival: ambulance History of Present Illness HPI narrative: Patient is a 59-year-old female presenting to the emergency department from [facility] via EMS. According to EMS, the patient was complaining of nausea and EMS was called. EMS has no further history about the patient and they do do not know why the patient is in a half-way. The patient herself has no complaints and she is unsure why she is in the emergency department. She denies having any current symptoms and denies being any pain. She denies chest pain shortness of breath, nausea, vomiting, constipation, or headache. I attempted to contact the half-way multiple times throughout the night for further history, however no one answered our calls. Related Data Home Medications ?Medication ?Instructions ?Recorded ?Confirmed aspirin 325 mg tablet 325 mg PO DAILY 12/19/23 03/10/24 brimonidine 0.2 % eye drops 1 drp ophthalmic (eye) BID 12/19/23 03/10/24 carvedilol 12.5 mg tablet 12.5 mg PO Q12H 12/19/23 03/10/24 cholecalciferol (vitamin D3) 10 400 unit PO DAILY 12/19/23 03/10/24 mcg (400 unit) tablet (Vitamin D3) divalproex 500 mg tablet,delayed 500 mg PO DAILY 12/19/23 03/10/24 release docusate sodium 100 mg capsule 100 mg PO BID PRN constipation 12/19/23 03/10/24 duloxetine 60 mg capsule,delayed 60 mg PO DAILY 12/19/23 03/10/24 release ferrous sulfate 325 mg (65 mg 325 mg PO DAILY 12/19/23 03/10/24 iron) tablet fluocinonide 0.05 % topical 1 applic topical DAILY PRN rash 12/19/23 12/20/23 ointment guaifenesin 100 mg/5 mL oral liquid 200 mg PO Q6H PRN congestion 12/19/23 12/19/23 guaifenesin 600 mg tablet, 600 mg PO BID PRN congestion 12/19/23 03/10/24 extended release 12 hr (Mucinex) insulin glargine 100 unit/mL (3 15 unit subcut DAILY 12/19/23 03/10/24 mL) subcutaneous pen (Lantus Solostar U-100 Insulin) levothyroxine 100 mcg tablet 100 mcg PO DAILY 12/19/23 03/10/24 loperamide 2 mg capsule 2 mg PO Q6H PRN loose stool 12/19/23 03/10/24 multivitamin 1 tab PO DAILY 12/19/23 03/10/24 omeprazole 40 mg capsule,delayed 40 mg PO DAILY 12/19/23 03/10/24 release potassium chloride 20 mEq 20 meq PO DAILY 12/19/23 03/10/24 tablet,extended release(part/cryst) sucralfate 100 mg/mL oral 1 g PO TID 12/19/23 03/10/24 suspension (Carafate) tramadol 50 mg tablet 50 mg PO Q12H 12/19/23 03/10/24 cholecalciferol (vitamin D3) 25 25 mcg PO DAILY 03/10/24 03/10/24 mcg (1,000 unit) tablet Allergies Allergy/AdvReac Type Severity Reaction Status Date / Time cephalexin Allergy Unknown Verified 12/19/23 20:32 moxifloxacin (From Avelox) Allergy Unknown Verified 12/19/23 20:32 polyethylene glycol 3350 Allergy Unknown Verified 12/19/23 20:32 (From Miralax) Opioid HPI Opioid Management Most Recent Opioid Data: Last Pain Scale 2 05/03/24, 21:32 Review of Systems ROS Status of ROS 10 or more systems reviewed and unremarkable except as noted in history and below PFSH PFS Social History Little interest or pleasure in doing things: not at all Feeling down, depressed, or hopeless: not at all Exam Narrative Exam Narrative: CONSTITUTIONAL: No acute distress, nontoxic appearing, answering questions and following commands appropriately SKIN: Was warm and dry. EYES: Sclerae white. EARS, NOSE, THROAT: Moist oral mucosa. RESPIRATORY: Clear to auscultation bilaterally, no wheezes, crackles, or stridor, no use of accessory muscles CARDIOVASCULAR: Normal rate and regular rhythm. There is no S3, S4, murmur, rub. GASTROINTESTINAL: Abdomen is soft, nontender, and nondistended. MUSCULOSKELETAL: No peripheral edema. Resting tremor. NEUROLOGIC: Patient is awake and alert. Moving all 4 extremities equally. Facies were symmetrical. Constitutional Vital Signs, click to edit/add: Last Vital Signs Temp 98.0 F 01/15/25 21:13 Pulse 94 H 01/15/25 22:40 Resp 15 01/15/25 22:40 BP 158/81 H 01/15/25 22:30 Pulse Ox 91 L 01/15/25 22:10 O2 Del Method Room Air 01/15/25 21:38 Course Vital Signs Vital signs: Vital Signs Temperature 98.0 F 01/15/25 21:13 Pulse Rate 106 H 01/15/25 21:13 Respiratory Rate 20 01/15/25 21:13 Blood Pressure 162/92 H 01/15/25 21:13 Pulse Oximetry 97 01/15/25 21:13 Oxygen Delivery Method Room Air 01/15/25 21:13 Temperature 98.0 F 01/15/25 21:13 Pulse Rate 94 H 01/15/25 22:40 Respiratory Rate 15 01/15/25 22:40 Blood Pressure 158/81 H 01/15/25 22:30 Pulse Oximetry 91 L 01/15/25 22:10 Oxygen Delivery Method Room Air 01/15/25 21:38 Medical Decision Making MDM Narrative Medical decision making narrative: Patient is a 59-year-old female presenting to the emergency department from [facility] EMS for concerns of nausea. I attempted to contact the half-way multiple times throughout the night for further history, however no one answered our calls. The patient is a poor historian and I have very little information as to why the patient is in the half-way or her prior medical history. The patient has no complaints. Vital signs are significant for mild hypertension, otherwise within normal limits. She is afebrile hemodynamically stable. She has a normal physical examination. Unclear as to exactly why the patient is the emergency department and she has no complaints. However, IV was established and laboratory studies were obtained, including a chest x-ray, to evaluate for any underlying metabolic/electrolyte derangement or evidence of infection. Laboratory studies were unremarkable. No significant electrolyte or metabolic derangement. No evidence of acute kidney injury. No anemia, leukocytosis, or thrombocytopenia. No transaminitis or hyperbilirubinemia. Troponin not elevated. Urinalysis negative. 12 Lead EKG: Normal sinus rhythm at a rate of 92. Normal axis. No ST segment elevations. QRS, WA, and QTc interval within normal limits. Final impression: normal sinus rhythm without evidence of acute myocardial ischemia Chest x-ray independently reviewed/interpreted by myself demonstrated no acute cardiopulmonary process. I do believe the patient is stable for discharge back to her half-way via EMS. FINAL IMPRESSION: #Acute nausea, resolved DISPOSITION: Discharged via EMS to half-way CONDITION: Good Lab Data Lab results reviewed: Yes I reviewed the patient's lab results Labs: Lab Results 01/15/25 01/15/25 Range/Units 21:50 22:00 WBC 8.7 (4.0-11.0) 10^3/uL RBC 3.76 L (4.20-5.40) 10^6/uL Hgb 11.8 L (12.0-16.0) g/dL Hct 36.8 (36.0-48.0) % MCV 97.9 (81.0-99.0) fL MCH 31.4 (26.7-34.0) pg MCHC 32.1 (29.9-35.2) g/dL RDW 13.1 (11.0-15.0) % Plt Count 261 (150-450) 10^3/uL MPV 9.5 (9.5-13.5) fL Neut % (Auto) 52.2 (43.0-75.0) % Lymph % (Auto) 32.9 (20.5-60.0) % [place] % (Auto) 7.4 (1.7-12.0) % Eos % (Auto) 6.9 (0.9-7.0) % Baso % (Auto) 0.3 (0.2-2.0) % Neut # (Auto) 4.5 (1.4-6.5) 10^3/uL Lymph # (Auto) 2.9 (1.2-3.8) 10^3/uL [place] # (Auto) 0.6 (0.3-0.8) 10^3/uL Eos # (Auto) 0.6 (0.0-0.7) 10^3/uL Baso # (Auto) 0.0 (0.0-0.1) 10^3/uL Abs Immat Gran (auto) 0.03 (0.00-0.03) 10^3/uL Imm/Tot Granulo (auto) 0.3 (0.0-0.5) % Sodium 137 (136-145) mmol/L Potassium 4.2 (3.5-5.1) mmol/L Chloride 106 (98-107) mmol/L Carbon Dioxide 24.4 (21.0-32.0) mmol/L Anion Gap 10.8 BUN 25.0 H (7.0-18.0) mg/dL Creatinine 1.47 H (0.55-1.02) mg/dL Est GFR ( Amer) 44 L (>=60 mL/min/1.73m^2) Est GFR (Non-Af Amer) 36 L (>=60 mL/min/1.73m^2) BUN/Creatinine Ratio 17.0 Glucose 232 H (74-106) mg/dL Lactate 1.5 (0.4-2.0) mmol/L Calcium 8.6 (8.5-10.1) mg/dL Total Bilirubin <0.1 L (0.2-1.0) mg/dL AST 16 (15-37) U/L ALT 19 (14-59) U/L Alkaline Phosphatase 121 H (46-116) U/L Troponin I High Sens 14.5 (4.0-51.3) pg/mL Total Protein 7.2 (6.4-8.2) g/dL Albumin 2.9 L (3.4-5.0) g/dL Globulin 4.3 g/dL Albumin/Globulin Ratio 0.7 Urine Color Yellow (YELLOW) Urine Clarity Clear (CLEAR) Urine pH 6.0 (5.0-9.0) Ur Specific [place] 1.020 (1.005-1.025) Urine Protein 100 A (NEG/TRACE) mg/dL Urine Glucose (UA) 100 A (NEGATIVE) mg/dL Urine Ketones Trace A (NEGATIVE) mg/dL Urine Occult Blood Trace-i (NEGATIVE) Urine Nitrite Negative (NEGATIVE) Urine Bilirubin Negative (NEGATIVE) Urine Urobilinogen 0.2 (0.2-1.0) EU/dL Ur Leukocyte Esterase Negative (NEGATIVE) Urine RBC 0-2 (0-2) #/HPF Urine WBC 0-2 A (NONE SEEN) #/HPF Ur Squamous Epith Cells Rare (NONE/RARE) #/LPF Urine Crystals None seen (None Seen) #/HPF Urine Bacteria Trace A (NONE SEEN) #/HPF Urine Casts Seen A (NONE SEEN) #/LPF Hyaline Casts Rare Urine Mucus None seen (NONE SEEN) Ur Culture Indicated? No Imaging Data Chest x-ray: Attestation: I personally reviewed and interpreted this imaging study as follows: ECG Data Attestation: I personally reviewed and interpreted this ECG as follows: Discharge Plan Discharge Chief Complaint: Weakness Clinical Impression: Nausea Patient Disposition: Home, Self-Care Time of Disposition Decision: 22:57 Condition: Good Mode of Transportation: EMS Prescriptions / Home Meds: No Action aspirin 325 mg tablet 325 mg PO DAILY brimonidine 0.2 % drops 1 drp OPHTHALMIC (EYE) BID carvedilol 12.5 mg tablet 12.5 mg PO Q12H cholecalciferol (vitamin D3) [Vitamin D3] 10 mcg (400 unit) tablet 400 unit PO DAILY divalproex 500 mg tablet,delayed release (DR/EC) 500 mg PO DAILY docusate sodium 100 mg capsule 100 mg PO BID PRN (Reason: constipation) duloxetine 60 mg capsule,delayed release(DR/EC) 60 mg PO DAILY ferrous sulfate 325 mg (65 mg iron) tablet 325 mg PO DAILY fluocinonide 0.05 % ointment 1 applic TOPICAL DAILY PRN (Reason: rash) sucralfate [Carafate] 100 mg/mL suspension 1 g PO TID insulin glargine [Lantus Solostar U-100 Insulin] 100 unit/mL (3 mL) insulin pen 15 unit subcut DAILY levothyroxine 100 mcg tablet 100 mcg PO DAILY loperamide 2 mg capsule 2 mg PO Q6H PRN (Reason: loose stool) guaifenesin [Mucinex] 600 mg tablet extended release 12hr 600 mg PO BID PRN (Reason: congestion) multivitamin Tablet 1 tab PO DAILY omeprazole 40 mg capsule,delayed release(DR/EC) 40 mg PO DAILY potassium chloride 20 mEq tablet,ER particles/crystals 20 meq PO DAILY guaifenesin 100 mg/5 mL liquid 200 mg PO Q6H PRN (Reason: congestion) tramadol 50 mg tablet 50 mg PO Q12H cholecalciferol (vitamin D3) 25 mcg (1,000 unit) tablet 25 mcg PO DAILY Print Language: Dominican Instructions: Acute Nausea and Vomiting (ED) Referrals: MAHIN BERNAL [Primary Care Provider, Family Practice] - 1 week
== END 2025-01-16 01:30 | disposition home or self-care (01) ==
PROVIDERS: Emergency Provider Student in an Organized Health Care Education/Training Program; PCP Family Medicine
DX: R11.0 Nausea (principal)
CPT/HCPCS: 36415; 71045; 80053; 81001; 83605; 84484; 85025; 93005; 99285

== ENCOUNTER 2025-02-03 15:04 | Outpatient (OUT) | payer MEDICARE, OTHER, MEDICAID, SELFPAY ==
--- OUTSIDE RECORDS SUMMARY | 2023-10-29 08:15 | XMS_ITS ---
Author Organization [facility] Address [address] [place] [address] [place] [address] Care Team Providers Care Process Engineering Technician Name Role Phone José Miguel Crouch;kaiden, Jesse Primary Care Provider Un available Jose Field Unavailable [phone] Encounters Encounter Location Date Provider Diagnosis [address] [address] 10/29/2023 Jose Field Plan Of Treatment No Information Progress Notes * Claudia FERNANDEZOB:1965 ([age] yo F)Acc No.[id number]:10/29/2023 Patient:?Cleo Fernandez :?SINDY RodriguezMDOB:1965???Age:58 Y???Sex: FemaleDate:4Phone:[phone]:[address] [place] [address]Myn:Willa Mayen;kaiden * Electronic signature of Jose Field DPM on 02/03/2025 at 03:09 PM ESTSign off status: Pending * Provider: Sallie Field DPM Date: 0 10/29/2023 Generated for Printing/Faxing/eTransmitting on:?02/03/2025 03:09 PM EST
--- OUTSIDE RECORDS SUMMARY | 2024-01-21 10:00 | XMS_ITS ---
Author Organization [facility] Address [address] [place] [address] [place] [address] Care Team Providers Care Prescription Benefit Specialist Name Role Phone José Miguel Crouch;kaiden, Jesse Primary Care Provider Un available Jose Field Unavailable [phone] Encounters Encounter Location Date Provider Diagnosis [address] [address] 01/21/2024 Jose Field Plan Of Treatment No Information Progress Notes * Claudia FERNANDEZOB:1965 ([age] yo F)Acc No.[id number]:01/21/2024 Patient:?Cleo Fernandez :?SINDY RodriguezMDOB:1965???Age:58 Y???Sex: FemaleDate:01/21/2024hone:[phone]:[address] [place] [address]Qej:Willa Mayen;kaiden * Electronic signature of Jose Field DPM on 02/03/2025 at 03:08 PM ESTSign off status: Pending * Provider: Sallie Field DPM Date: 1 03/23/2023 Generated for Printing/Faxing/eTransmitting on:?02/03/2025 03:08 PM EST
--- OUTSIDE RECORDS SUMMARY | 2024-04-21 10:00 | XMS_ITS ---
Author Organization [facility] Address [address] [place] [address] [place] [address] Care Team Providers Care Policy Cancellation Clerk Name Role Phone José Miguel Crouch;kaiden, Jesse Primary Care Provider Un available Jose Field Unavailable [phone] Encounters Encounter Location Date Provider Diagnosis [address] [address] 04/21/2024 Jose Field Plan Of Treatment No Information Progress Notes * Claudia FERNANDEZOB:1965 ([age] yo F)Acc No.[id number]:04/21/2024 Patient:?Cleo Fernandez :?SINDY RodriguezMDOB:1965???Age:59 Y???Sex: FemaleDate:04/21/2024Phone:[phone]:[address] [place] [address]Eys:Willa Mayen;kaiden * Electronic signature of Jose Field DPM on 02/03/2025 at 03:09 PM ESTSign off status: Pending * Provider: Sallie Field DPM Date: 0 04/21/2024 Generated for Printing/Faxing/eTransmitting on:?02/03/2025 03:09 PM EST
--- OUTSIDE RECORDS SUMMARY | 2024-06-09 08:45 | XMS_ITS ---
Author Organization [facility] Address [address] [place] [address] [place] [address] Care Team Providers Care Class C Truck Driver Name Role Phone José Miguel Crouch;Jesse richey Primary Care Provider Un available Jose Field Unavailable [phone] REASON FOR VISIT L CALLUS only; not toenails Encounters Encounter Location Date Provider Diagnosis [address] [address] 06/09/2024 Jose Field Plan Of Treatment No Information Progress Notes * Claudia FERNANDEZOB:1965 ([age] yo F)Acc No.[id number]:06/09/2024 Patient:?Cleo Fernandez :?SINDY RodriguezMDOB:1965???Age:59 Y???Sex: FemaleDate:06/09/2024Phone:[phone]:[address] [place], [place] [id number]:Willa Mayen;kaiden Subjective: * Chief Complaints: * L CALLUS only; not toenails * Electronic signature of Jose Field DPM on 02/03/2025 at 03:08 PM ESTSign off status: Pending * Provider: Sallie Field DPM Date: 0 06/09/2024 Generated for Printing/Faxing/eTransmitting on:?02/03/2025 03:08 PM EST
--- OUTSIDE RECORDS SUMMARY | 2024-10-20 09:00 | XMS_ITS ---
Author Organization [facility] Address [address] [place] [address] [place] [address] Care Team Providers Care Cabinetmaker Supervisor Name Role Phone José Miguel Crouch;kaiden, Jesse Primary Care Provider Un available Jose Field Unavailable [phone] Encounters Encounter Location Date Provider Diagnosis [address] [address] 10/20/2024 Jose Field Plan Of Treatment No Information Progress Notes * Claudia FERNANDEZOB:1965 ([age] yo F)Acc No.[id number]:10/20/2024 Patient:?Cleo Fernandez :?SINDY RodriguezMDOB:1965???Age:59 Y???Sex: FemaleDate:10/20/2024Phone:[phone]:[address] [place] [address]Yvn:Willa Mayen;kaiden * Electronic signature of Jose Field DPM on 02/03/2025 at 03:09 PM ESTSign off status: Pending * Provider: Sallie Field DPM Date: 0 10/20/2024 Generated for Printing/Faxing/eTransmitting on:?02/03/2025 03:09 PM EST
--- OUTSIDE RECORDS SUMMARY | 2025-01-19 10:00 | XMS_ITS ---
Author Organization [facility] Address [address] [place] [address] [place] [address] Care Team Providers Care Education Courses Sales Representative Name Role Phone José Miguel Crouch;kaiden, Jesse Primary Care Provider Un available Jose Field Unavailable [phone] Encounters Encounter Location Date Provider Diagnosis [address] [address] 01/19/2025 Jose Field Plan Of Treatment No Information Progress Notes * Claudia FERNANDEZOB:1965 ([age] yo F)Acc No.[id number]:01/19/2025 Patient:?Cleo Fernandez :?SINDY RodriguezMDOB:1965???Age:59 Y???Sex: FemaleDate:01/19/2025Phone:[phone]:[address] [place] [address]Jgy:Willa Mayen;kaiden * Electronic signature of Jose Field DPM on 02/03/2025 at 03:09 PM ESTSign off status: Pending * Provider: Sallie Field DPM Date: 03/22/2024 Generated for Printing/Faxing/eTransmitting on:?02/03/2025 03:09 PM EST
--- OUTSIDE RECORDS SUMMARY | 2025-02-03 15:08 | XMS_ITS | Clinical Summary ---
Author Organization [facility] Address [address] [place], [place] [address] Care Team Providers Care Medical Review Specialist Name Role Phone BasiliaTobias Lars PALACIOS Primary Care Provider [phone] Allergies Active AllergyReactionsCriticalityNoted DateCommentsMoxifloxacinRash,Swelling, Wpbvoee7803/23/2015CephalexinHives,Swelling,Yjjaaav3103/23/2015TapentadolMental Status Ugheme4910/31/2015 Medications MedicationSigDispense QuantityRefillsLast FilledStart DateEnd DateStatus metFORMIN [...] InformationValueDate RecordedSex Assigned at BirthNot on fileLegal ObsJqihcr82/28/2015 9:26 AM EST Gender IdentityNot on fileSexual OrientationNot on file Last Filed Vital Signs Vital SignReadingTime TakenCommentsBlood Aejfnrgp173/6909 3:09 PM EDT Aiudr8933 3:09 PM EDTTemperature--Respiratory Jnyf260605/02/2015 3:50 PM EDTOxygen Saturation--Inhaled Oxygen Concentration--Weight--Jyzufo161.1 cm (5' 5 )03/23/2015 12:42 PM ESTBody Mass Index-- Plan of Treatment Health MaintenanceDue DateLast DoneCommentsAnxiety Hxgkjzaim82/21/1981Depression Lzjvsvdza82/21/1981HIV Jxqilqoen81/21/1981Hepatitis C Cfcpehsqs21/21/1981 DTaP,Tdap,Td Vaccine (1 - Tdap)1982Cervical Cancer Eduljiltl92/21/1984 Mammogram Xpwmlnchs45/21/2003CT Wquyavbjzmte94/21/2008Cologuard (FIT-DNA) 02/07/20080527Yvzqyyfnzqn82/21/2008Colorectal Cancer Mvnablgps56/21/2008Fecal Occult Blood02/07/2008Lipid Urpfnfznq34/21/1636Etpthduxmiwjr72/21/2008Pneumococcal Vaccine: 50+ (1 of 1 - PCV)2013Shingrix Vaccine (1 of 2)2013Diabetes Ezptklvfz39/04/, 03/23/2015Covid-19 Vaccine (1 - 2024- season) 2024Influenza Vaccine (#1)2024RSV Vaccine (1 - 1-dose 75+ series) 2038 Procedures Procedure NamePriorityDate/TimeAssociated DiagnosisCommentsHEMOGLOBIN G6YGiwlpae 03/23/2015 2:21 PM EST Diabetes mellitus due to underlying condition with complication (HCC) Sensory ataxia Polyneuropathy (HCC) Bilateral foot-drop from Last 3 Months or Most Recently Relevant to Health Maintenance Results * (ABNORMAL) HGB A1C (03/23/2015 2:21 PM EST)ComponentValueRef RangeTest Method Analysis TimePerformed AtPathologist SignatureHemoglobin A1C10.8(H)4.3 - 5.6 % 03/23/2015 10:11 PM ESTWHITE HOSPITAL MAIN LABORATORYComment: [place] Diabetes Association guidelines indicate that patients with HgbA1c in the range 5.7-6.4% are at increased risk for development of diabetes, and intervention by lifestyle modification may be beneficial. HgbA1c greater or equal to 6.5% is considered diagnostic of diabetes. Estimated Average Glucose>240mg/dL03/23/2015 10:11 PM ESTWHITE HOSPITAL MAIN LABORATORYComment: eAG: (Estimated average glucose) is a calculated value from HgbA1c and is technical support representative of the average blood glucose level in the last 2-3 month period. Specimen (Source)Anatomical Location / LateralityCollection Method / Volume Collection TimeReceived TimeBlood specimen (specimen)WHOLE BLOOD SPECIMEN / Tbziqvz6903/23/2015 2:21 PM EST03/23/2015 2:26 PM EST Narrative Authorizing ProviderResult TypeResult StatusPayam SoltanzadehLABORATORYFinal ResultPerforming OrganizationAddressCity/State/ZIP CodePhone Number [facility] [address] [place] [address] from Last 3 Months or Most Recently Relevant to Health Maintenance Insurance Care Teams Team MemberRelationshipSpecialtyStart DateEnd Date Tobias Cui DO PCP - GeneralFamily Ebluavgx25/28/15
--- OUTSIDE RECORDS SUMMARY | 2025-02-03 15:08 | XMS_ITS | Patient Health Record ---
Author Organization [facility] in [place] Address [address] [place] [address] Care Team Providers Care Return To Factory Clerk Name Role Phone Aamir Purcell DO Primary Care Provider Unavaila ble Reason For Referral No Information Problems Problem Type SNOMED Code ICD Code Onset Dates Problem Status W/U Status Risk Notes Problem Type II diabetes rosey litus without complication (355403873) Type 2 diabetes mellitus without complications (E11.9) ActiveconfirmedProblemFoot ulcer due to type 2 diabetes mellitus (3337669248303) Type 2 diabetes mellitus with foot ulcer (E11.621)ActiveconfirmedProblemChronic ulcer of foot (657624943)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)ActiveconfirmedProblemLong-term current use of insulin (272419706)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 (Z79.4)Activeconfirmed ProblemEncephalopathy (04045854)Encephalopathy (G93.40)ActiveconfirmedProblem Essential hypertension (79758664)Essential hypertension (I10)Activeconfirmed ProblemMitral valve disorder (52208326)MR (mitral regurgitation) (I34.0)Active confirmedProblemAcquired hypothyroidism (509769227)Acquired hypothyroidism (E03.9)ActiveconfirmedProblemThrombocytopenia (791957881)Thrombocytopenia (D69.6)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) (983527489)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)ActiveconfirmedProblemAgitation (90966753) Agitation (R45.1)ActiveconfirmedProblemChronic ulcer of great toe of left foot, limited to breakdown of skin (L97.521)ActiveconfirmedProblemUlcer of big toe (disorder) (580117914)Chronic ulcer of great toe of left foot with fat layer exposed (L97.522)ActiveconfirmedProblemType II diabetes mellitus without complication (680756963)Type 2 diabetes mellitus without complication, unspecified 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 (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.9)ActiveconfirmedProblemParalysis of left vocal cord (407933014)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)Active confirmedProblemIschemic ulcer of toe of right foot with fat layer exposed (L97.512)ActiveconfirmedProblemGastroesophageal reflux disease (094462808) Gastroesophageal reflux disease, unspecified whether esophagitis present (K21.9) Activeconfirmed Plan Of Treatment No Information Insurance Providers Payer Name Payer Address Payer Phone Subscriber Number Group Number Insured Name Patient Relationship to Insured Coverage Start Date Coverage End Date [place] [address] [place] [address] [id number] Ladan Georges - [facility] [address] [address] [place] [address] [phone], TrudySelf - patient is the insured
--- OUTSIDE RECORDS SUMMARY | 2025-02-03 15:09 | XMS_ITS | Clinical Summary ---
Author Organization [facility] Address [address] [place] [address] Care Team Providers Care Botany Laboratory Assistant Name Role Phone Aamir Purcell MD Primary Care Provider Allergies Active AllergyReactionsCriticalityNoted DateCommentsCephalexinHives,Itching, Unknown,Rash,CgqifrjqAptu71/15/2012 burning MoxifloxacinItching,Unknown,Rash,UvjjujzhOtxs72/15/2012 Abdominal pain Peg 3153-Hub-Bqdeq-Nacl-FczqrqDgyz60/11/9298QmzgkqmhcsIbytsriAmpr63/19/2014 Mental status changes Passed out Medications MedicationSigDispense [...] each day at the same timeActive HYDROcodone-acetaminophen ([place]) 5-325 MG tablet Take 1 tablet by [...] Do not crush or chew. 30 capsule 5Active Active Problems ProblemNoted DateDiagnosed DatePrimary open angle glaucoma (POAG) of both eyes, moderate stage06/28/2024Left posterior capsular dxdmipvqxioul06/12/2025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 xtsoircm72/12/2025Dry eyes06/28/2024 Encounters DateTypeDepartmentCare GsyzApeopzirvdw80/19/2025bstract [facility] [address] [facility] [address] [place] [address] Aamir Purcell MD 12/23/2024bstract [facility] [address] [facility] [address] [place] [address] Aamir Purcell MD 12/22/2024Telephone [facility] [address] [facility] [address] [place] [address] [place] Chávez, ARLETTE 12/13/2024Refill [facility] [address] [facility] [address] [place] [address] Mariam JanyMURPHY Gastroesophageal reflux disease without esophagitis (Primary Dx); Cough, unspecified type; Acquired oyqchidjhmuvyq11/21/2025Telephone [facility] [address] [facility] [address] [place] [address] [place] Chávez, ARLETTE 11/30/2024Telephone [facility] [address] [facility] [address] [place] [address] [place] Chávez, ARLETTE 11/23/2024Telephone [facility] [address] [facility] [address] [place] [address] [place] Chávez, ARLETTE 11/23/2024Telephone [facility] [address] [facility] [address] [place] [address] Arias Cruz MD 11/22/2024[facility]phone [facility] [address] [facility] [address] [place] [address] [place] Chávez, REPAIRER FINISHED METAL from Last 3 Months Social History Tobacco UseTypesPacks/DayYears UsedDateSmoking Tobacco: Never Assessed CommentsUnknownSex and Gender InformationValueDate RecordedSex Assigned at Not on fileLegal ZzeVhjvsa14/15/2023 6:48 PM EDTGender IdentityNot on fileSexual OrientationNot on file Last Filed Vital Signs Vital SignReadingTime TakenCommentsBlood Pressure--Pulse--Temperature-- Respiratory Rate--Oxygen Saturation--Inhaled Oxygen Concentration--Cgqmpz64.9 kg (152 lb)04/03/2021 12:00 PM UQEPhgcrs309.1 cm (5' 5 )04/26/2022 12:00 PM ESTBody Mass Index25.29004/03/2021 12:00 PM EST Plan of Treatment Not on file Insurance Care Teams Team MemberRelationshipSpecialtyStart DateEnd Date Aamir Purcell MD [address] [facility] [place] [address] PCP - GeneralFamily Medicine08/12/22
--- OUTSIDE RECORDS SUMMARY | 2025-02-03 15:09 | XMS_ITS | Clinical Summary ---
Author Organization [facility] Address [address] [place] [address] Care Team Providers Care Machine Operator Cane Cutter Name Role Phone Aamir Purcell DO Primary Care Provider [phone] Adilson Hernandez MD Unavailable Kartik Mejia MD Unavailable [phone] Tisha Arriaga MD Unavailable Luis Miguel Kaur MD Unavailable [phone] Chris Zavala OD Unavailable Unavailable Allergies Active AllergyReactionsCriticalityNoted DateCommentsMoxifloxacinRashHigh 10/28/20161098QmroumbyjwWinonumEoli16/11/2017 burning CzkcypultpAyxv86/11/2017 Passed out Medications MedicationSigDispense QuantityRefillsLast FilledStart DateEnd [...] mL 05/15/2021ctive Active Problems ProblemNoted DateDiagnosed DateChronic oqzpjjxz21/10/2021Internal derangement of right knee09/26/2020rimary open angle glaucoma (POAG) of right eye, severe stage04/20/2020 Overview (04/20/2020): Added automatically from request for surgery Primary open angle glaucoma (POAG) of left eye, severe stage12/31/2019 Overview (12/31/2019): Added automatically from request for surgery [id number] Humynfmfpngik06/06/2020Nuclear sclerotic cataract of left eye12/16/2018 Overview (12/16/2018): Added automatically from request for surgery [id number] CIDP (chronic inflammatory demyelinating polyneuropathy)06/24/2018Vitamin D momwgnsulo33/31/2019DDD (degenerative disc disease), pebnmfhl71/31/2019 Osteoarthritis cervical spine03/19/2018Postmenopausal dhwtaw5503/19/2018Osteopenia determined by x-ray03/19/2018Primary osteoarthritis of left wrist03/19/2018 Primary osteoarthritis of right wrist03/19/2018Primary osteoarthritis of both knees03/19/2018Primary osteoarthritis of both hips03/19/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 03/19/2018Neuropathy of hand02/16/20182761Ozvdfqp42/06/2018Disorder of bone and hjnttfnee82/06/2018History of Raynaud's wqwbkbab72/06/2018Bilateral hand pain 01/22/2018Chronic pain of both knees01/22/2018Long term current use of non- steroidal anti-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 (NSAID)01/22/2018Alkaline phosphatase elevation 01/22/20183136Ihtyvl88/06/0652Oqixjnxphnk33/06/2018Chronic pain of both shoulders 01/22/2018Bilateral biceps wxwpqlvpal46/06/2018Tendonitis of both rotator cuffs 01/22/2018Bilateral wrist pain01/22/2018Osteoarthritis of both hands01/22/2018 Hip pain, right01/22/2018Mixed edxbvlnxkvtrsl88/30/2018Diabetes mellitus 10/16/2017Chest pain10/09/2017 Assessment & Plan (10/10/2017 11:24 AM EDT): Seen by cardiology ACS ruled out - Enzymes <0.02 x4 sets Continue medical management Follow-up with cardiology as outpatient Bxfuvldf08/21/2018MGUS (monoclonal gammopathy of unknown significance)03/16/2017 Assessment & Plan (10/10/2017 11:26 AM EDT): Per history - Follow up with hematology/oncology as outpatient 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 involvement without evidenceof yhcqgmaw90/26/2018Fracture of third toe, left, hbsqum5602/15/2016Closed displaced fracture of first metatarsal bone of left foot with routine rvajwuc0804/17/20154167Abfihdcuiruq27/05/2014Coronary atherosclerosis 06/24/2012Diaphragmatic bijsyz3406/24/2012Gastroesophageal reflux disease 06/24/20129749Yfulbroj03/08/3208Cehwfttrgznwmq70/08/2013Irritable bowel syndrome 06/24/2012sthma Assessment & Plan (10/10/2017 [...] left, initial encounter Knee injury, right, initial enwjyerfk36 Immunizations ImmunizationAdministration DatesNext DueInfluenza Sgaknli4011/04/2013Influenza Vaccine 0.5ml10/07/2019Influenza Vaccine, Ytjazpuuc58/18/2014Pneumococcal Polysac 23-Valent Xykuxop1707/29/2012Pneumococcal Vaccine, Ddnuqefqbzi02/20/2020 Zoster Vaccine, Live11/04/2013 Family History Medical HistoryRelationNameCommentsCancer- OtherFatherDiabetesFatherDiabetes MotherHeart Disease - OtherMotherHypertensionMotherStrokeMotherBreast Cancer OtherCancer- OtherOtherDiabetesOtherHeart Disease - OtherOtherHypertensionOther StrokeOtherBlindnessNeg HxGlaucomaNeg HxRelationNameStatusCommentsFatherDeceased MotherDeceasedOther Social History Tobacco UseTypesPacks/DayYears UsedDateSmoking Tobacco: SkpzcfIyoukbibhk6Jgdk: 1997Smokeless Tobacco: Never Tobacco Cessation:Counseling Given: No Alcohol UseStandard Drinks/WeekCommentsNo0 (1 standard drink = 0.6 oz pure alcohol)CommentsNoSex and Gender InformationValueDate RecordedSex Assigned at BirthNot on fileLegal QioIcidqq17/04/2015 3:05 PM ESTGender Identity Huckrw6910/15/2016 6:49 AM EDTSexual OrientationNot on file Last Filed Vital Signs Vital SignReadingTime TakenCommentsBlood Bglsahep885/6303 3:31 PM EDT Pccyw3076 3:31 PM URVPiqnrfedcpr00.2 ??C (97.2 ??F)05/11/2021 1:31 PM EDTRespiratory Olfx1082 3:31 PM EDTOxygen Sjcwjmwggy84%01/18/2021 8:57 AM ESTInhaled Oxygen Concentration--Lpwuoq50.3 kg (155 lb)05/08/2021 1:53 PM EDT Pfonve223.4 cm (5' 5.5 )05/08/2021 1:53 PM EDTBody Mass Index25.403 1:53 PM EDT Plan of Treatment Health MaintenanceDue DateLast DoneCommentsDIABETIC FOOT EXAM1963TETANUS 1963HIV SCREENING QSLJQOACKO38/21/1978TDAP (ADULT)1982CERVICAL CANCER SCREENING ERAKWILIDB85/21/1984COLORECTAL CANCER SCREENING DISCUSSION 02/07/2008ZOSTER (SHINGLES) VACCINE (2 of 3)12/30/201309/MAMMOGRAM SCREENING SLPMPYLBEA11/16/201902/EYE EXAM/05/2017PNEUMOCOCCAL VACCINE SERIES (2 of 2 - PCV)/, 07/29/2012HBA1C TEST /03/2021, 03/15/2021, 09/01/2020, Additional history existsLIPIDS /, 09/01/2020, 05/15/2020, Additional history existsURINE MICROALBUMIN TEST/, 09/01/2020, 05/15/2020, Additional history existsCOVID-19 VACCINE ( - 2024- season)2024INFLUENZA VACCINE (#1)/, 11/04/2013, 11/04/2013RSV VACCINE (1 - 1-dose 75+ series)2038HEPATITIS C VIRUS NAJDDRVAVLgynizhuo30/06/2018, 03/06/2017 PNEUMOCOCCAL VACCINE OGAXAEFmiuxsiobbax96/20/2020, 07/29/2012POTASSIUM Otjiiauyuyzf58/27/2022, 01/13/2021, 09/01/2020, Additional history existsTSH Amemoeqsomsb32/27/2022, 09/01/2020, 03/13/2020, Additional history existsHEP B VACCINEAged OutNo longer eligible based on patient's age to complete this topic Medical Devices ImplantedTypeAreaManufacturerDevice IdentifierShelf Expiration DateModel / Serial / LotLens Au00t0 D 23.5 - [id number] Implanted:Qty: 1 on 12/23/2018 by Grace Washington MD at [facility] REV LOCLeft: EyeALCON NYWSDTRY02/31/2067GW23P6 D 23.5 / [id number] / Implant Opth 250sq Mm Jo 1 Qdrnt Ins Fx Sut Hl Rcs Knt Cpb - [id number] Implanted:Qty: 1 on 02/23/2020 by Grace Washington MD at [facility] REV LOCLeft: [employer] (IMANI)[id number] / [id number] / Osc Tissue Cornea Padmini [id number] Implanted:Qty: 1 on 02/23/2020 by Grace Washington MD at [facility] REV LOCLeft: [facility] [place]08/16/2020GLYCERIN / / [id number] Procedures Procedure NamePriorityDate/TimeAssociated DiagnosisCommentsHC CREATININE NOT RGXEJFjcsbsr95/27/2022 10:50 AM EST Type 1 diabetes mellitus with diabetic neuropathy HEMOGLOBIN X2CXttvqar31/27/2022 8:58 AM EST Type 1 diabetes mellitus with diabetic neuropathy TSH W/FT4 OEJQPGXabgvfy49/27/2022 8:58 AM EST Type 1 diabetes mellitus with diabetic neuropathy Acquired hypothyroidism COMPREHENSIVE METABOLIC SPYHOJzwsokf51/27/2022 8:58 AM EST Type 1 diabetes mellitus with diabetic neuropathy LIPID PANEL W CALCULATED WIMPrqbfqw17/27/2022 8:58 AM EST Type 1 diabetes mellitus with diabetic neuropathy HEPATITIS A, B, TIfhprhe91/06/2018 4:29 PM EST Cervicalgia Disorder of bone [...] Fatigue, unspecified type History of Raynaud's 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 anti-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 (NSAID) Alkaline phosphatase elevation Type 1 diabetes mellitus with diabetic neuropathy DIABETIC EYE EXAM (OUTSIDE)Ihxxqvx7606/20/2017MAMMO SCREENING BILATERALRoutine 04/04/2017 12:46 PM EST Screening mammogram, encounter for from Last 3 Months or Most Recently Relevant to Health Maintenance Results * (ABNORMAL) MICROALBUMIN/CREATININE RATIO (03/15/2021 10:50 AM EST)Component ValueRef RangeTest MethodAnalysis TimePerformed AtPathologist Signature CREATININE, MG/DL, GWOFS753.5MG/DL[address]IONComment:NO NORMAL VALUES ESTABLISHED FOR RANDOM SPECIMENS Microalbumin, Urine, Nhbczq934.1(H)0 - 16.7 mg/LG[address]MICROALBUMIN/CREATININE BOHUN228.2(H)1.3 - 30.0 mg MALB/g [address]Comment: Testing performed at [place], [place] [address]Iiubmtbg (Source)Anatomical Location / LateralityCollection Method / VolumeCollection TimeReceived Time03/15/2021 10:50 AM EST03/15/2021 11:00 AM EST Narrative Authorizing ProviderResult TypeResult StatusLuis Miguel Kaur MDBODY FLUIDS & STOOLS ORDERABLESFinal ResultPerforming OrganizationAddressCity/State/ZIP Code Phone Number [place] [phone] * (ABNORMAL) TSH W/FT4 REFLEX (03/15/2021 8:58 AM EST)ComponentValueRef Range Test MethodAnalysis TimePerformed AtPathologist SignatureTSH, Reflex FT47.180 (H)0.46 - 4.68 uIU/ML[address] Comment:Testing performed at [place], [place] [address] Specimen (Source)Anatomical Location / LateralityCollection Method / Volume Collection TimeReceived WefcRkila58/27/2022 8:58 AM EST03/15/2021 9:00 AM EST Narrative Authorizing ProviderResult TypeResult StatusLuis Miguel Kaur MDENDOCRINOLOGYFinal ResultPerforming OrganizationAddressCity/State/ZIP CodePhone Number [place] [phone] * (ABNORMAL) HEMOGLOBIN A1C (03/15/2021 8:58 AM EST)ComponentValueRef RangeTest MethodAnalysis TimePerformed AtPathologist SignatureHEMOGLOBIN A1C11.7(H)0 - 6 %[facility] - [address] - [place] Comment: NORMAL <5.7% PREDIABETES 5.7-6.4% DIABETES 6.5% OR HIGHER Estimated Average Coherbv167uc/dLBUCJ.W. [facility] - [address] - [facility]imen (Source)Anatomical Location / Laterality Collection Method / VolumeCollection TimeReceived EdgjHtimr42/27/2022 8:58 AM EST03/15/2021 9:00 AM EST Narrative Authorizing ProviderResult TypeResult StatusTojudah Kaur MDHEMATOLOGY ORDERABLESFinal ResultPerforming OrganizationAddressCity/State/ZIP CodePhone Number [facility] - [address] - [place] [address] [place] [address] * (ABNORMAL) LIPID PANEL W CALCULATED LDL (03/15/2021 8:58 AM EST)ComponentValue Ref RangeTest MethodAnalysis TimePerformed AtPathologist SignatureCHOLESTEROL 226(H)107 - 217 MG/DL[address] KWKSTUTHCEOA859(H)0 - 150 MG/DL41 [address] STREETHDL XPQUUNRXSCH6514 - 75 MG/DL[address]LDL CHOLESTEROL, CHMKNNKOIP419WE/DL41 [address]ETVLDL Cholesterol, Kzjtmkzbej86(H)5.0 - 25 MG/DL [address]TCHOL/HDL RATIO, MANUAL ENTER4.71RATI[address]Comment: RISK ?TOTAL/HDL RATIO ?MEN ? WOMEN 1/2 AVERAGE ?3.43 ?3.27 AVERAGE ?4.97 ?4.44 2X AVERAGE ? 9.55 ?7.05 3X AVERAGE ?23.99 ? 11.04 Testing performed at [place], [place] [address] Specimen (Source)Anatomical Location / LateralityCollection Method / Volume Collection TimeReceived YupmAkcnh48/27/2022 8:58 AM EST03/15/2021 9:00 AM EST Narrative Authorizing ProviderResult TypeResult StatusTodd M Natasha MDCHEMISTRY ORDERABLESFinal ResultPerforming OrganizationAddressCity/State/ZIP CodePhone Number [address] [place] [address] * (ABNORMAL) COMPREHENSIVE METABOLIC PANEL (03/15/2021 8:58 AM EST)Component ValueRef RangeTest MethodAnalysis TimePerformed AtPathologist SignatureGlucose 222(H)70 - 100 MG/DL[address] Comment: NORMAL <100 mg/dL PREDIABETES 101-126 mg/dL DIABETES 126 mg/dL or higher BUN26(H)7 - 20 MG/DL[address] CREATININE SERUM1.200.7 - 1.2 MG/DL[address]ETODIUM139137 - 145 MMOL/[address]Potassium4.53.5 - 5.1 MMOL/[address]CHLORIDE10598 - 107 MMOL/[address]Comment:Please note: Triglyceride levels of 600mg/dL or higher may positively bias chloride results by approximately 2.1 mmolCALCIUM9.68.4 - 10.2 MG/DL41 [address]PROTEIN, TOTAL7.36.3 - 8.2 GM/DL88 [address] Streetbumin3.93.5 - 5.0 G/dl41 [address]ETBILIRUBIN, TOTAL0.40.2 - 1.3 MG/DL[address] ITU3328 - 36 IU/[address]AL[address] ASJZUTLAACJ96031 - 126 IU/[address]CARBON DIOXIDE (CO2)2422 - 30 MMOL/[address]A/G Ratio1.1(L)1.3 - 2.[address]T14<35 IU/LG91 [address]ETSTIMATED GFR, NON MJHM11fy/min/1.73sq.[address]STIMATED GFR, OVRDMROD23 ml/min/1.73sq.[address]GFR COMMENTAverage GFR for 50-59 years old = 93.[address]Comment: Chronic Kidney disease, GFR = <60. Kidney failure, GFR = <15. The GFR estimate is not adjusted for extreme body surface area or acute process, nor has it been validated for women or ethnic groups other than and . Testing performed at [place], [place] [address] Specimen (Source)Anatomical Location / LateralityCollection Method / Volume Collection TimeReceived XugsFzvmm55/27/2022 8:58 AM EST03/15/2021 9:00 AM EST Narrative Authorizing ProviderResult TypeResult StatusTodd M Darmody MDCHEMISTRY ORDERABLESFinal ResultPerforming OrganizationAddressCity/State/ZIP CodePhone Number [address] [address] * HEPATITIS A, B, C (01/22/2018 4:29 [...] with a HCV Nucleic Acid Amplification test ([id number]). PERFORMED AT [facility] Specimen (Source)Anatomical Location / LateralityCollection Method / [...] Guarantor: Rose Georges TypeRelation to PatientDate of BirthGateway [facility] Center Address[facility]/EwzmlyIywf1965 [address] [place] [address] * Guarantor: Rose Georges TypeRelation to PatientDate of Dr. [facility] Address[facility]/QvqmnaPpxw1965 [address] [place] [address] Advance Directives For more information, please contact: [phone] (7:30 AM - 6PM Jesusita/[facility], Friday-Friday) * Full Code (Latest Code Status on File) Date ActivatedDate [facility]10/09/2017 4:19 PM Care Teams Team MemberRelationshipSpecialtyStart DateEnd Date Aamir Purcell DO PCP - GeneralFamily Medicine03/06/17 Adilson Hernandez MD [address] [place] [address] Ophthalmology07/18/17 Kartik Mejia MD [address] [place] [address] Pain Sfhtcqxx17/8/18 Tisha Arriaga MD [address] [place] [id number] NeurologistNeurology07/18/17 Luis Miguel Kaur MD [address] [place] [address] EndocrinologistEndocrinology, Diabetes & Metabolism03/06/17 Chris Zavala, OD [address] [place] [address] Optometry03/15/20
--- OUTSIDE RECORDS SUMMARY | 2025-02-03 15:09 | XMS_ITS | Patient Health Record ---
Author Organization [facility] Address [address] [place] [address] [place] [address] Care Team Providers Care Work Force Advisor Name Role Phone José Miguel Crouch;Jesse richey Primary Care Provider Un available Jose Field Unavailable [phone] Allergies Allergen (clinical drug ingredient) Drug/Non Drug Allergy documented on EMR Reaction Allergy Type Onset Date Status moxifloxacin Avelox Unknown Drug Allergy ActivemoxifloxacinMoxifloxacin HClUnknownDrug AllergyActivepolyethylene glycol 3350PEG 3350UnknownDrug AllergyActivecephalexinCephalexinUnknownDrug Allergy Active Reason For Referral No Information Medications Medication SIG (Take, Route, Frequency, Duration) Notes Start Date End Date Status Calcium Carbonate Antacid 1000 MG Tablet Chewabl e 1 tablet Orally Once a day ActiveTrulicity 0.75 MG/0.5ML Solution Auto-injectoras directed Subcutaneous ActiveBrimonidine Tartrate 0.2 % Solution1 drop into affected eye Ophthalmic every 8 hrsActiveDepakote ER 250 MG Tablet Extended Release 24 Hour1 tablet Orally twice a dayActiveMeclizine HCl 25 MG Tablet1 tablet as needed Orally every 12 hrsActiveInsulin Glargine-yfgn 100 UNIT/ML Solution Pen-injectoras directed SubcutaneousActiveAspirin 325 MG Tablet1 tablet Orally Once a dayActive traMADol HCl 50 MG Tablet1 tablet as needed Orally Once a dayActiveLevothyroxine Sodium 100 MCG Tablet1 tablet in the morning on an empty stomach Orally Once a dayActiveCymbalta 60 MG Capsule Delayed Release Particles1 capsule Orally Once a dayActivetiZANidine HCl 4 MG Tablet1 tablet at bedtime as needed Orally Once a dayActiveOmeprazole 40 MG Capsule Delayed Release1 capsule 1/2 to 1 hour before morning meal Orally Once a dayActiveCarvedilol 12.5 MG Tablet1 tablet with food Orally Twice a dayActive Social History Tobacco Use: Social [...] Status Risk Notes Problem Type 2 diabetes bety itus with peripheral angiopathy (366815555) Type 2 diabetes mellitus with diabetic peripheral angiopathy without gangrene (E11.51) ActiveconfirmedProblemLong-term current use of insulin (551177446)senior living (current) use of insulin (Z79.4)Ocxuvhoefyijroec37GxogdneEzgshet of toe (802506597)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)Activeconfirmed Vital Signs Blood pressure diastolic 76 mm Hg 01/17/2025 Ltotbj48 in01/17/2025lood pressure avjcwoqh561 mm Hg01/17/20258378Ehyses835 lbs 08/05/2024BMI25.7908/05/2024 Encounters Encounter Location Date Provider Diagnosis [facility] [address] [facility] [place] [address] 04/21/2024 [facility] [address] [place] [address]/ [facility] [address] [facility] [address]/04/2024[facility] [address] [facility] [address]/04/2024[facility] [address] [place] [address]/Jose Armstrong term (current) use of insulin Z79.4 ; Type 2 diabetes mellitus with diabetic peripheral angiopa thy without gangrene E11.51 and Acquired absence of other left toe(s) Z89.422 [facility] [address] [place] [address]/02/2024 Jose Armstrong term (current) use of insulin Z79.4 ; Type 2 diabetes mellitus with diabetic peripheral angiopathy without gangrene E11.51 and Acquired absence of other left toe(s) Z89.422[facility] [address] [place] [address] [place] [address]/03/2024Jose Field Assessments Encounter Date Diagnosis (ICD Code) [...] term (current) use of insulin (ICD-10 - Z79.4)01/17/2025Long term (current) use of insulin (ICD-10 - Z79.4)5Acquired absence of other left toe(s) (ICD-10 - Z89.422)01/17/2025Type 2 diabetes mellitus with diabetic peripheral angiopathy without gangrene (ICD-10 - E11.51)This is a 59 year old patient presents today for dispensing of extra depth diabetic shoes with heat moldable inserts. The shoes were checked for proper fit. The shoes were fitted to the patients feetin both weight bearing and non weight bearing attitudes and appear to fit well. The inserts were heat molded to his foot with a heat gun to a temperature of at least 230 degrees. The patient was thendispensed one pair of extra depth therapeutic shoes and three pairs of heat moldable inserts. 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 The patient signed the authorization for payment and warranty statement, instruction on break in and care form for the shoes, as well as the [facility] Medicare [employer]ME[employer] supplier standard form. The patient was also asked to have a family member or friend inspect the feet for any signs of irritation including redness, blistering, or callous formation. Pt. was instructed to call the office with any questions or problems.5Acquired absence of other left toe(s) (ICD-10 - Z89.422) Plan Of Treatment No Information Insurance Providers Payer Name Payer Address Payer Phone Subscriber Number Group Number Insured Name Patient Relationship to Insured Coverage Start Date Coverage End Date Medicare Part B J-15 Part [facility] Claims [address] [place] [address] [id number], Jonnaelf - patient is the insured[facility] [address] [place] [id number], TrudySelf - patient is the insuredMedicaid [place] [facility] F[address] [place], [place] [id number], Jonnaelf - patient is the insured Medical (General) History Medical History History ICD Code type II diabetes glaucomaidiopathic epilepsyanemiahypokalemiaanxietydepressionspinal stenosis hyperlipidemiahypothyroidismcardiac murmursleep apneapolyneuropathyhypertension asthmaGERDSurgical History Surgery Date(Month/Year) heart surgery neck surgeryHospitalization History Reason Date(Month/Year) see surgical hx
--- OUTSIDE RECORDS SUMMARY | 2025-02-03 15:09 | XMS_ITS | Clinical Summary ---
Author Organization [facility] Address [address] [facility], [address] [place] [address] Care Team Providers Care Injection Specialist Name Role Phone Migue Cole MD Primary Care Provider [phone] Allergies Active AllergyReactionsCriticalityNoted DateCommentsMoxifloxacin Hydrochloride SbqwOhk4312/02/20118315MhqqvfihimEciuFve80/15/0626YevanmttqvdzDxvqJgon52/11/2017Peg 2955-Ywp-Angdb-Nacl-DvkekbUqca60/11/2017TapentadolOther (See Comments)Medium 10/31/2015 Mental status changes Medications [...] Active Problems ProblemNoted DateDiagnosed DateS/P cervical spinal wlxrxu2304/02/2022nemia due to blood loss09/26/2021cute respiratory xplfkkw8409/25/2021Ventilator associated oziskabhn10/06/2022Tracheostomy care09/22/2021Tracheostomy in place09/22/2021 Delirium due to multiple dzclcjioml96/02/2022ischarge planning wuiatm0009/16/2021 CSF iqkprpjssl17/26/2022ther cranial cerebrospinal fluid leak08/22/2021 Hkajdrrfxejsqi03/29/7668EGDIO28/28/2022Metabolic hbbsdwixnpefpn42/14/2022MSSA (methicillin susceptible Staphylococcus aureus) nnhmogmaje55/14/2022epsis 06/29/2021taphylococcus aureus cmdqjtkulr09/13/0208Abemcbxvoduyka68/13/2022 Yeettlqjakw55/13/2022Type 2 diabetes mellitus with diabetic polyneuropathy 06/29/2021rimary akzgpaqfytqv03/13/2022ltered mental state06/28/2021ellulitis of left kchqhv7007/16/2018EncephalopathyToxic metabolic 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)Upper GI [...] InformationValueDate RecordedSex Assigned at BirthNot on fileLegal DmvXiqbht17/10/2013 10:05 AM ESTGender IdentityNot on fileSexual OrientationNot on file Last Filed Vital Signs Vital SignReadingTime TakenCommentsBlood Ujzbcvwz673/8301/23/2023 10:54 AM EST Ywgqb140901/23/2023 10:54 AM MKDNyshrxnyzeh82.6 ??C (97.9 ??F)01/23/2023 10:54 AM ESTRespiratory Cyuc241403/26/2022 10:54 AM ESTOxygen Tpqhybbxqt15%01/23/2023 10:54 AM ESTInhaled Oxygen Concentration--Nwnrnb26.2 kg (135 lb)01/23/2023 10:54 AM EQXPwahos611.1 cm (5' 5 )08/15/2022 9:03 AM EDTBody Mass Index22.47008/15/2022 9:03 AM EDT Plan of Treatment Health MaintenanceDue DateLast DoneCommentsDepression Mivsfc7202/06/1975HIV screen 1978Diabetic retinal exam1981Hepatitis C fcawoi2402/06/1981 DTaP/Tdap/Td vaccine (1 - Tdap)1982Pap smear02/07/1984Cervical cancer qdddgd1002/06/1993HPV (without or with Pap)02/06/19937087Vuvquudgfxg84/21/2008Fecal- DNA (Cologuard): Average risk02/07/2008Sigmoidoscopy/CT sjsrpjeqowvm72/21/2008 Shingles vaccine (2 of 3)12/30/Diabetic Alb to Cr ratio (uACR) test06/25/reast cancer vfuayv80/16/Pneumococcal 50+ years Vaccine (2 of 2 - PCV)/, 07/29/20121235Ywujkk30/12/2023 06/28/2021, 06/28/2016, 06/25/2013, Additional history existsDiabetic foot exam /olorectal Cancer Fbjdcd7407/24/2022FIT/FOBT: Average risk /1C test (Diabetic or Prediabetic)/, 06/28/2021, 07/19/2017, Additional history existsGFR test (Diabetes, CKD 3-4, OR last GFR 15-59)/12/2021, 09/25/2021, 09/24/2021, Additional history existsAnnual Wellness Visit (Medicare)01/13/2023Respiratory Syncytial Virus (RSV) or age 60 yrs+ (1 - Risk 60-74 years 1-dose series)2023Flu vaccine (#1)/, 11/04/2013COVID-19 Vaccine ( - season)2024Pneumococcal 0-49 years RhbidqiTedrjfhtdpdz96/20/2020, 07/29/2012Hepatitis A vaccineAged OutNo longer eligible based [...] LotSystem Spnl Seal 3ml Exact Duraseal - [id number] Implanted:Qty: 1 on 07/06/2021 [facility]: Spine CervicalINTEGRA LIFESCIENCES BRETT-[id number] / / Kit Bne Grft Xsm 1.4cc Rhbmp-2 Absrb Cllgn Spng Infuse - [id number] Implanted:Qty: 1 on 09/25/2021 [facility]: Spine CervicalMEDTRONIC SPINALGRAFT TECH-WD02/16/[id number] / [id number] / [id number] Cellr Bne Matrx Influx Sparc 5cc - [id number] Implanted:Qty: 1 on 09/25/2021 [facility]: Spine CervicalISTO TECHNOLOGIES INC-WD05/04/20237385RHMQWZ72 / -[id number] / [id number] Cellr Bne Matrx Influx Sparc 5cc - [id number] Implanted:Qty: 1 on 09/25/2021 by [facility]: Spine CervicalISTO TECHNOLOGIES INC-WD05/04/20237996GFLIEL71 / -[id number] / [id number] Spnl L34mm Pmc68sw Occipitocervical Up Thor Multiaxial - [id number] Implanted:Qty: 2 on 09/25/2021 [facility]: Spine CervicalMEDTRONIC SOFAMOR DANEK-[id number] / / Bishnu Spnl L25mm Dia3.5mm Occipitocervical Up Thor Precut - [id number] Implanted:Qty: 2 on 09/25/2021 by [facility]: Spine CervicalMEDTRONIC SOFAMOR DANEK-[id number] / / Set Screw Spinal M6 - [id number] Implanted:Qty: 4 on 09/25/2021 by [facility]: Spine CervicalMEDTRONIC SOFAMOR DANEK-[id number] / / Procedures Procedure NamePriorityDate/TimeAssociated DiagnosisCommentsBASIC METABOLIC PANEL W/ REFLEX TO MG FOR LOW PZjjyaif06/11/2022 2:38 AM EDT HEMOGLOBIN L3DOhczpws62/24/2022 7:34 AM EDT OCCULT BLOOD SCREENStat Sunquest Label print07/24/2021 2:30 PM EDT LIPID GTZCYHesffmh92/12/2022 9:38 PM EDT MICROALBUMIN, RIHpjavel46/09/2014 7:05 AM EDT from Last 3 Months or Most Recently Relevant to Health Maintenance Results * (ABNORMAL) Basic Metabolic Panel w/ Reflex to MG (09/27/2021 2:38 AM EDT) ComponentValueRef RangeTest MethodAnalysis TimePerformed AtPathologist QlaudhtqkOdviebq245(H)70 - 99 mg/dL09/27/2021 2:38 AM EDTMERCY LABORATORIESBUN 126 - 20 mg/dL09/27/2021 2:38 AM EDTMERCY LABORATORIESCreatinine0.540.50 - 0.90 mg/dL09/27/2021 2:38 AM EDTMERCY LABORATORIESCalcium9.18.6 - 10.4 mg/dL 09/27/2021 2:38 AM EDTMERCY KAQAPCSUVVGDCninwk689887 - 144 mmol/L09/27/2021 2:38 AM EDTMERCY LABORATORIESPotassium3.2(L)3.7 - 5.3 mmol/L09/27/2021 2:38 AM EDTMERCY MGPNZOYYBZQKSmzaucyj92890 - 107 mmol/L09/27/2021 2:38 AM EDTMERCY DANOVYCHOMXIBA87678 - 31 mmol/L09/27/2021 2:38 AM EDTMERCY LABORATORIESAnion Koy567 - 17 mmol/L09/27/2021 2:38 AM EDTMERCY LABORATORIESGFR Non->60>60 mL/min09/27/2021 2:38 AM EDTMERCY LABORATORIESGFR >60>60 mL/min09/27/2021 2:38 AM EDTMERCY LABORATORIESGFR Comment 09/27/2021 2:38 AM EDTMERCY LABORATORIESComment: Average GFR for 50-59 years old: 93 mL/min/1.73sq m Chronic Kidney Disease: <60 mL/min/1.73sq m Kidney failure: <15 mL/min/1.73sq m ? eGFR calculated using average adult body mass. Additional eGFR calculator available at: ? http://www.[employer]/multiple_crcl_2012.htm ? Specimen (Source)Anatomical Location / LateralityCollection Method / Volume Collection TimeReceived TimeBLOOD SPECIMEN / Fwkbpsg4809/27/2021 2:38 AM EDT 09/27/2021 2:42 AM EDT Narrative Authorizing ProviderResult TypeResult StatusDarleen Carmona MDCHEMISTRY ORDERABLES Edited Result - FinalPerforming OrganizationAddressCity/State/ZIP CodePhone Number [facility] [address] [place] [address], [facility] [phone] * Hemoglobin A1C (09/09/2021 7:34 AM EDT)ComponentValueRef RangeTest Method Analysis TimePerformed AtPathologist SignatureHemoglobin A1C5.14.0 - 6.0 % 09/09/2021 7:34 AM EDTMERCY LABORATORIESEstimated Avg Mzdaipb843wv/dL 09/09/2021 7:34 AM EDTMERCY LABORATORIESComment: The ADA and AACC recommend providing the estimated average glucose result to permit better patient understanding of their HBA1c result. Specimen (Source)Anatomical Location / LateralityCollection Method / Volume Collection TimeReceived Time09/09/2021 7:34 AM EDT09/09/2021 8:11 AM EDT Narrative Authorizing ProviderResult TypeResult StatusChris Bascarlett MDCHEMISTRY ORDERABLES Final ResultPerforming OrganizationAddressCity/State/ZIP CodePhone Number [facility] [address] [place] [address], [facility] [phone] * (ABNORMAL) OCCULT BLOOD SCREEN (07/24/2021 2:30 PM EDT)ComponentValueRef Range Test MethodAnalysis TimePerformed AtPathologist SignatureOccult Blood, Stool #1POSITIVE(A)BCKIHYKW61/07/2022 2:30 PM EDTMERCY LABORATORIESDate, Stool #1 6,2,0449807/24/2021 2:30 PM EDTMERCY LABORATORIESTime, Stool #[id number] 2:30 PM EDTMERCY LABORATORIESSpecimen (Source)Anatomical Location / Laterality Collection Method / VolumeCollection TimeReceived TimeSTOOL SPECIMEN / Unknown 07/24/2021 2:30 PM EDT07/25/2021 12:13 AM EDT Narrative Authorizing ProviderResult TypeResult StatusXin [place] MDBODY FLUIDS AND STOOLS ORDERABLESFinal ResultPerforming OrganizationAddressCity/State/ZIP CodePhone Number [facility] [employer] [address] [place] [address], [facility] [phone] * LIPID PANEL (06/28/2021 9:38 PM EDT)ComponentValueRef RangeTest MethodAnalysis TimePerformed AtPathologist XhqunlpsaQflwmpmycan878<200 mg/dL06/28/2021 9:38 PM EDTMERCY LABORATORIESComment: Cholesterol Guidelines: <200 Desirable 200-240 ??Borderline >240 Undesirable HDL71>40 mg/dL06/28/2021 9:38 PM EDTMERCY LABORATORIESComment: HDL Guidelines: <40 Undesirable 40-59 ?Borderline >59 Desirable LDL Ojvtpbljftj640 - 130 mg/dL06/28/2021 9:38 PM EDTMERCY LABORATORIESComment: [...] / Volume Collection TimeReceived TimeBLOOD SPECIMEN / Frssfij3006/28/2021 9:38 PM EDT 06/28/2021 9:38 PM EDT Narrative Authorizing ProviderResult TypeResult StatusSubrabola Jewell MDCHEMISTRY ORDERABLESFinal ResultPerforming OrganizationAddressCity/State/ZIP CodePhone Number [address] [address], [facility] [phone] * Microalbumin, Ur (06/25/2013 7:05 AM EDT)ComponentValueRef RangeTest Method Analysis TimePerformed AtPathologist SignatureAlbumin Urine12<21 mg/L 06/25/2013 9:11 PM EDTMHPN LABCreatinine, Ur166.139.0 - 259.0 mg/dL06/25/2013 9:11 PM EDTMHPN LABComment: The reference range and other method performance specifications have not been established for this body fluid. ??The test result must be integrated into the clinical context for interpretation. Microalb/Community Health Planning Director. Vdbmi9uda/mg creat06/25/2013 9:11 PM EDTMHPN LABUrine Microalbumin Ssnxqb1106/25/2013 9:11 PM EDTMHPN LABComment: REFERENCE RANGE NORMAL ? = 0 - 13 ?? mcg/mg creat BORDERLINE = 14 - 30 ??mcg/mg creat ABNORMAL = >30 mcg/mg creat Performed at [place] [address] Specimen (Source)Anatomical Location / LateralityCollection Method / Volume Collection TimeReceived Time06/25/2013 7:05 AM EDT06/25/2013 7:06 AM EDT Narrative Authorizing ProviderResult TypeResult StatusDanitorsten ZIMMERMAN ORDERABLES Edited Result - FinalPerforming OrganizationAddressCity/State/ZIP CodePhone Number [facility] [address] [place] [address], [facility] [phone] [facility] from Last 3 Months or [...] MemberRelationshipSpecialtyStart DateEnd Date Migue Cole MD [address] [place] [address] PCP - GeneralInternal Medicine08/14/21
--- OUTSIDE RECORDS SUMMARY | 2025-02-03 15:09 | XMS_ITS | Clinical Summary ---
Author Organization [facility] Address [address] [place] [address] Care Team Providers Care Bilingual Legal Assistant Name Role Phone Aamir Purcell DO Primary Care Provider [phone] Social History Tobacco UseTypesPacks/DayYears UsedDateSmoking Tobacco: Never AssessedUT Safety & EnvironmentAnswerDate RecordedFear of Current or Ex-PartnerNot on file 04/10/2023Emotionally AbusedNot on file04/10/2023hysically AbusedNot on file 04/10/2023Sexually AbusedNot on file4Physically or Sexually AbusedNot on file04/10/2023CommentsUnknownSex and Gender InformationValueDate RecordedSex Assigned at BirthNot on fileLegal QawAqlral21/29/2022 10:27 PM EDT Gender IdentityNot on fileSexual OrientationNot on file Last Filed Vital Signs Vital SignReadingTime TakenCommentsBlood Vxuthusc871/7307 2:28 PM EDT Pulse--Eofxegragqn79.1 ??C (98.7 ??F)08/26/2018 2:24 PM EDTRespiratory Rate-- Oxygen Saturation--Inhaled Oxygen Concentration--Vqpepd67.9 kg (152 lb) 08/26/2018 2:24 PM QPFIpxxdo023.1 cm (5' 5 )08/26/2018 2:24 PM EDTBody Mass Index25.2907 2:24 PM EDT Plan of Treatment Health MaintenanceDue DateLast DoneCommentsCT Vdctlllydtvv1963Colonoscopy 1963Colorectal Cancer Lpvhdvzal1963FIT-DNA1963FIT1963 FOBT1963Medicare Annual Wellness (AWV)1963 5039Ktomqvrgajyyv1963 Diabetes: Retinopathy Bxotrcwiz19/21/1973Depression Gngqkfnpj44/21/1975Diabetes: Urine Protein Uthgiogvl42/21/1982Pap Smear02/07/1984Adult Uuxlbjw1402/06/1985 Cervical Cancer Lsvvjkeql33/21/1993HPV/Hgiduz4902/06/19932579Urdxzsagh27/21/2003Zoster Vaccines (1 of 2)Diabetes: Hemoglobin A1C10/11/2018 07/11/2018COVID-19 [...] complete this topic Procedures Procedure NamePriorityDate/TimeAssociated DiagnosisCommentsHEMOGLOBIN A7FFzakv 07/11/2018 6:08 AM EDT from Last 3 Months or Most Recently Relevant to Health Maintenance Results * (ABNORMAL) Hemoglobin A1C (07/11/2018 6:08 AM EDT)ComponentValueRef RangeTest MethodAnalysis TimePerformed AtPathologist SignatureHemoglobin A1C8.9(H)4.0 - 6.0 %LAB CONVERSIONSEstimated Average Jhtxpei248(H)70 - 126 mg/dLLAB CONVERSIONSSpecimen (Source)Anatomical Location / [...] DateEnd Aamir Navarrete DO [address] [place] [address] [facility]10/19/21
--- OUTSIDE RECORDS SUMMARY | 2025-02-03 15:10 | XMS_ITS | Clinical Summary ---
Author Organization [facility] Address [address] [place] [address] Phone Care Team Providers Care Circuit Rider Name Role Phone Physician, Pcp Unknown Primary Care Provider Dayanna vailable Allergies Active AllergyReactionsCriticalityNoted OtcgAfojoxapWnhmqymhcb52/17/2022 EogmedwyxfHvtigxm90/17/2022 Medications MedicationSigDispense QuantityRefillsLast FilledStart DateEnd DateStatus insulin [...] if needed (pain).Active Active Problems ProblemNoted DateDiagnosed YjqfFerznbakdexpwc17/18/3542Prrpxvgbg04/18/2022Chest pain of unknown /17/2022 Medical History Medical HistoryDateCommentsDiabetes mellitus (CMS/HCC V24, [...] RecordedSex Assigned at BirthNot on fileLegal Sex Hvwmeu9804/05/2021 1:23 PM ESTGender IdentityNot on fileSexual OrientationNot on file Last Filed Vital Signs Vital SignReadingTime TakenCommentsBlood Apwxejdx083/8104/06/2021 7:37 PM EST Nvmhc988404/06/2021 7:37 PM VMQRtpqaevtluq27.5 ??C (97.7 ??F)04/06/2021 7:37 PM ESTRespiratory Iipg153504/06/2021 7:37 PM ESTOxygen Suhamiljai041%04/06/2021 7:37 PM ESTInhaled Oxygen Concentration--Ftopfl32 kg (147 lb 11.3 oz)04/06/2021 10:26 AM GMVWgwypu729 cm (4' 11.84 )04/06/2021 10:26 AM ESTBody Mass Azbva0433/18/2022 10:26 AM EST Plan of Treatment Health MaintenanceDue DateLast DoneCommentsBreast Cancer Pwawqboor1965 Colorectal Cancer Screening: Ntpuxjymeyg1963Diabetes: Annual Foot Exam 1973DTaP,Tdap,and Td Vaccines (1 - Tdap)1982Cervical Cancer Screening: Pap Smear02/07/1984RSV Immunization Adult Patients (1 - Risk 50-74 years 1-dose series)2013Zoster Vaccines (2 of 3) Pneumococcal Vaccine: 50+ Years (2 of 2 - PCV)/, 07/29/2012 HIV Giqhxoaot06/17/2022Hepatitis C Fyipgstgt96/17/2022Medicare Annual Wellness Visit2Diabetes: Blood Sugar Control Test (HGBA1C)/, 03/15/2021, 2Diabetes: Annual Retina Eye Exam Diabetes: Annual Urine Albumin-Creatinine Ratio (uACR)ocial Influencers of Health Efunjiale292Diabetes: Annual GFR (Glomerular Filtration Rate)/, 04/05/2021, 03/15/2021, Additional history existsHypertension/CHF/CAD Annual BMP Blood Test04/06/2022 04/06/2021, 04/05/2021, 03/15/2021, Additional history existsDepression Nzapahazc26/01/2025OVID-19 Vaccine (2024- season)2024Influenza Vaccine (#1)/, 11/04/2013, 11/04/2013Cholesterol Screening (Lipid Panel), 03/15/2021HIB VaccinesAged OutNo longer eligible based on [...] this topic Procedures Procedure NamePriorityDate/TimeAssociated DiagnosisCommentsCOMPREHENSIVE METABOLIC MQTRVMnyjcrf47/18/2022 4:22 AM EST HEMOGLOBIN A1ERxzezqg24/18/2022 12:42 AM EST from Last 3 Months or Most Recently Relevant to Health Maintenance Results * (ABNORMAL) Comprehensive metabolic panel (04/06/2021 4:22 AM EST)Component ValueRef RangeTest MethodAnalysis TimePerformed AtPathologist SignatureSodium 569710 - 145 mmol/L LAB CHEMISTRY METHOD 04/06/2021 5:31 AM [facility] LABPotassium4.23.6 - 5.1 mmol/L LAB CHEMISTRY METHOD 04/06/2021 5:31 AM [facility] EYKGlrwttxv05437 - 107 mmol/L LAB CHEMISTRY METHOD 04/06/2021 5:31 AM [facility] LMSGP418(L)22 - 32 mmol/L LAB CHEMISTRY METHOD 04/06/2021 5:31 AM [facility] LABAnion Gap96 - 18 LAB CHEMISTRY METHOD 04/06/2021 5:31 AM [facility] JMNFwbttvb378(H)70 - 99 mg/dL LAB CHEMISTRY METHOD 04/06/2021 5:31 AM [facility] XFGCLZ73(H)8 - 20 mg/dL LAB CHEMISTRY METHOD 04/06/2021 5:31 AM [facility] LABCreatinine1.06 0.60 - 1.30 mg/dL LAB CHEMISTRY METHOD 04/06/2021 5:31 AM [facility] IAQoTSP38 mL/min/1.73m2 LAB CHEMISTRY METHOD 04/06/2021 5:31 AM [facility] LABBUN/Creatinine Ratio20.8(H)12.0 - 20.0 LAB CHEMISTRY METHOD 04/06/2021 5:31 AM [facility] LABCalcium9.08.9 - 10.3 mg/dL LAB CHEMISTRY METHOD 04/06/2021 5:31 AM [facility] LABAST (SGOT)14(L) 15 - 41 unit/L LAB CHEMISTRY METHOD 04/06/2021 5:31 AM [facility] LABALT (SGPT)117 - 52 unit/L LAB CHEMISTRY METHOD 04/06/2021 5:31 AM [facility] LABAlkaline Hkcefrblwgl3601 - 91 unit/L LAB CHEMISTRY METHOD 04/06/2021 5:31 AM [facility] LABTotal Protein 6.36.1 - 7.9 g/dL LAB CHEMISTRY METHOD 04/06/2021 5:31 AM [facility] LABAlbumin3.4(L) 3.5 - 4.8 g/dL LAB CHEMISTRY METHOD 04/06/2021 5:31 AM [facility] LABTotal Bilirubin 0.40.3 - 1.2 mg/dL LAB CHEMISTRY METHOD 04/06/2021 5:31 AM [facility] LABSpecimen (Source)Anatomical Location / LateralityCollection Method / VolumeCollection TimeReceived TimeBloodVenous blood specimen / UnknownVenipuncture / Unknown 04/06/2021 4:22 AM EST04/06/2021 5:03 AM EST Narrative Authorizing ProviderResult TypeResult StatusAkojo HERNANDEZ BLOOD ORDERABLES Final ResultPerforming OrganizationAddressCity/State/ZIP CodePhone Number [facility] [address] [place] [address] * (ABNORMAL) Hemoglobin A1c (04/06/2021 12:42 AM EST)ComponentValueRef RangeTest MethodAnalysis TimePerformed AtPathologist SignatureHemoglobin A1C11.8(H)<=5.6 % LAB CHEMISTRY METHOD 04/06/2021 12:31 PM [facility] LABComment: HbA1c values of 5.7-6.4 percent indicate an increased risk for developing diabetes mellitus. HbA1c values greater than or equal to 6.5 percent are diagnostic of diabetes mellitus. For diagnosis of diabetes in individuals without unequivocal hyperglycemia, results should be confirmed by repeat testing. Mean Bld Glu Estim.292mg/dL LAB CHEMISTRY METHOD 04/06/2021 12:31 PM [facility] LABSpecimen (Source) Anatomical Location / LateralityCollection Method / VolumeCollection Time Received TimeBloodVenous blood specimen / UnknownVenipuncture / Unknown 04/06/2021 12:42 AM EST04/06/2021 12:50 AM EST Narrative Authorizing ProviderResult TypeResult StatusAkojo HERNANDEZ BLOOD ORDERABLES Final ResultPerforming OrganizationAddressCity/State/ZIP CodePhone Number [facility] [address] [place] [address] from Last 3 Months or Most Recently [...] Code - Default Date ActivatedDate InactivatedComments04/05/2021 5:43 04/05/2021 9:57 PMThis is order is used when code status has not been discussed with the patient, or code status is otherwise unknown/unconfirmed To update the patient's code status, place a code status order. Do not modify or discontinue any currently active code status orders. Care Teams Team MemberRelationshipSpecialtyStart DateEnd Date Physician, Pcp Unknown PCP - General04/05/21
--- OUTSIDE RECORDS SUMMARY | 2025-02-03 15:10 | XMS_ITS | Clinical Summary ---
Author Organization [facility] Address [address] [place] [address] Care Team Providers Care Senior Mechanical Estimator Name Role Phone Aamir Purcell DO Primary Care Provider [phone] Allergies Active AllergyReactionsCriticalityNoted DateCommentsMoxifloxacinItching,Swelling ,Rash,Other (See Comments)Low04/07/2017 Abdominal pain QybrcfkckzYeeynznOotq06/19/2018 burning DteyoazippAkoyzgr94/19/2018 Medications MedicationSigDispense QuantityRefillsLast FilledStart DateEnd DateStatus carvediloL [...] 05/28/2021ctive Active Problems ProblemNoted DateDiagnosed DateOther headache jhhurvhs22/02/2022 Assessment & Plan (05/20/2021 9:25 AM EDT): [...] monitor for improvement with treatment of these. Rbbhmfs7305/19/2021 Assessment & Plan (05/20/2021 9:25 AM EDT): [...] disorder by virtue of having diabetes. Cervical lvelywywhkcmu88/01/2022Neck zhufmf541516Zlttqukxqzzlj01/06/2020Foot ulcer02/25/2019 Overview (09/13/2020): OTHER PART OF FOOT Non-pressure chronic ulcer of other part of left foot with fat layer exposed 08/14/2017Non-pressure chronic ulcer of left lower leg with fat layer exposed 03/28/2017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 involvement without evidenceof kroveqrd55/26/2018Non-pressure chronic ulcer of left ankle with fat layer kqqvgay5809/06/2016Non-pressure chronic ulcer of right ankle limited to breakdown of skin08/14/2016Type 2 diabetes mellitus with foot ulcer06/19/2016Fracture of third toe, left, vzyxsg7202/15/2016Closed displaced fracture of first metatarsal bone of left foot with routine qtzresb2604/17/2015 Zbkkzc9803/27/2015Chronic ulcer of great toe of left foot03/27/2015Glaucoma 03/27/2015High /08/7262Uuezammxgyol83/08/2016Thyroid disorder 03/27/2015 Immunizations ImmunizationAdministration DatesNext DueInfluenza, Dqdzkozbbpf72/20/2020 Pneumococcal, Ktekplnoevw43/20/2020 Family History Medical HistoryRelationCommentsPancreatic cancerFatherDiabetesMotherRelation StatusCommentsFatherDeceasedMotherDeceased Social History Tobacco UseTypesPacks/DayYears UsedDateSmoking Tobacco: QvajxvVlfdsqbfvk90 04/07/1979 - 04/07/1989mokeless Tobacco: Never Comments:doesn't remember ho w much she smoked Alcohol UseStandard Drinks/WeekCommentsNot Currently0 (1 standard drink = 0.6 oz pure alcohol)rarelyCommentsNoSex and Gender InformationValueDate RecordedSex Assigned at BirthNot on fileLegal BndDywveb68/25/2014 4:56 AM EDT Gender VmyyiddpNkuamy00/18/2021 1:29 PM EDTSexual JbvbxsnggowGrgrgkwd21/29/2021 3:56 PM EDT Last Filed Vital Signs Vital SignReadingTime TakenCommentsBlood Qhqqcwdy653/7904 5:11 PM EDT Psafs6597 5:11 PM JZECcsicrctldx91.8 ??C (98.3 ??F)05/29/2021 5:11 PM EDTRespiratory Iyyj2616 5:11 PM EDTOxygen Zaigowfoxr61%05/29/2021 5:11 PM EDTInhaled Oxygen Concentration--Oiysxw55.2 kg (167 lb 15.9 oz)05/28/2021 5:00 AM VXCuxqOhuram940.1 cm (5' 5 )05/19/2021 9:04 AM EDTBody Mass Index27.96 05/19/2021 9:04 AM EDT Plan of Treatment Health MaintenanceDue DateLast DoneCommentsCT Pjziiggjkguf1963Colonoscopy 1963Colorectal Cancer Screening/Bifzxhiuvk1963Fecal DNA1963 Fecal occult blood test (FOBT,FIT)1963Wellness Visit1966Depression Screening/Follow-Up (PHQ-2/9)1975HIV Jxhtkxefe17/21/1978Hepatitis C Hpejqfuvx52/21/1981Tetanus/Diphtheria/Pertussis (1 - Tdap)1982Pap Smear 02/07/1984Cervical Cancer Rksmhxjlp84/21/1993HPV/Irxgfq0002/06/1993Zoster Vaccines (2 of 3)Pneumococcal Vaccine: 50+ Years (2 of 2 - PCV) , 07/29/2012COVID-19 Vaccine (1 - 2024- season)2024 Influenza Vaccine (#1), 11/04/2013, 11/04/2013RSV Vaccines (1 - 1-dose 75+ series)2038HIB VaccinesAged OutNo longer eligible based on patient's [...] Serial / LotStent-07/27/2012 Implanted:Qty: 1 on 07/27/2012StentRight: EyeGLAUKOS [id number] ISTENT / [id number] / [id number]:Non-clinical testing has demonstrated that the iStent?? Trabecular Micro-Bypass Stent (Models [id number] and [id number]) is MR Conditional. A patient with this [...] above, the iStent?? Trabecular Micro-Bypass Stent (Models [id number] and [id number]) is not exp ected to produce a clinically significant temperature rise after 15 minutes of continuous scanning.In non-clinical testing, the image artifact caused by the device extends less than 15 mm from the device when imaged with a gradient echo pulse sequence and a 3.0 T MRI system Insurance * Guarantor: Cleo Georges LAccount TypeRelation to PatientDate of BirthPhone Billing AddressPersonal/KusdimRtju1965 [phone] (Home) [address] [place] [address] MemberSubscriberPlan / Payer (Effective 2022-Present)Name:Cleo Georges Member ID:[id number] Relation to Subscriber:SelfName:Cleo Georges Subscriber ID:[id number] Payer ID:Not on file Group ID:Not on file Type:Not on file Address: [facility] [address] [place] [address] [place] [place] [address] Advance Directives For more information, please contact: [phone] TypeDate RecordedPatient RepresentativeExplanationPower of Attorney05/28/2021 12:09 PMPower of Attorney05/28/2021 12:01 PM * Full Code - Unverified (Latest Code Status on File) Date ActivatedDate InactivatedComments05/18/2021 10:06 PM05/29/2021 7:56 PM Care Teams Team MemberRelationshipSpecialtyStart DateEnd Date Aamir Purcell DO [address] [place] [address] PCP - GeneralFamily Medicine03/28/17
== END 2025-02-03 15:05 | disposition home or self-care (01) ==
LOC: WC 15:05
PROVIDERS: PCP Family Medicine; Visit Provider Physician Assistant
DX: E11.621 Type 2 diabetes mellitus with foot ulcer (principal); L97.422 Non-pressure chronic 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
CPT/HCPCS: G0463

== ENCOUNTER 2025-02-03 15:49 | Emergency (ER) | payer MEDICARE, OTHER, MEDICAID, SELFPAY ==
[2025-02-03 15:53] VITALS: BP 162/72; PULSE 94; TEMP 36.4; O2SAT 97; BMI 30.1
--- NOTE | 2025-02-03 16:07 | XR_ITS ---
The [address] [address] Patient Name: MEG FERNANDEZ MRN: [id number] date: 1965 Sex: F Assigned Patient Location: ED.MAIN Current Patient Location: ED.MAIN Accession/Order Number: [id number] Exam Date: 02/03/2025 16:38 Report Date: 02/03/2025 17:02 At the request of: YAIMA SANTIAGO MD Procedure: XR forearm LT 2V 2 views left forearm plain film COMPARISON: None HISTORY: Fell. Poor historian ACUTE FINDINGS: None DEGENERATIVE CHANGE: Olecranon spurring. SOFT TISSUE FINDINGS: Unremarkable JOINT EFFUSION: Small joint effusion POSTOP CHANGES: None BONY MINERALIZATION: Adequate XR/XR forearm LT 2V IMPRESSION: No acute displaced fracture. Small joint effusion. Continued concern for occult fracture may be further assessed with delayed imaging in 10-14 days. Impression dictated by: Soren Patterson M.D. 02/03/2025 5:02 PM Dictation Location: [place] [address] Electronically authenticated by: [id number] Y Date: 02/03/2025 17:02
--- NOTE | 2025-02-03 16:07 | CT_ITS ---
The [address] [address] Patient Name: MEG FERNANDEZ MRN: [id number] date: 1965 Sex: F Assigned Patient Location: ED.MAIN Current Patient Location: ED.MAIN Accession/Order Number: [id number] Exam Date: 02/03/2025 16:38 Report Date: 02/03/2025 17:05 At the request of: YAIMA SANTIAGO MD Procedure: CT head/brain wo con Unenhanced head CT TECHNIQUE: Contiguous axial imaging of the head. The CT exam was performed using one or more the following dose reduction techniques: Automated exposure control, adjustment of the MA and/or Kv according to patient size, or use of the iterative reconstruction technique. COMPARISON: 05/03/2024 HISTORY: Fell. VENTRICLES: Within normal limits ATROPHY: Diffuse atrophy BRAIN PARENCHYMA: Decreased density of the white matter is most consistent with chronic small vessel disease. HEMORRHAGE: None HERNIATION: No mass effect or herniation INFARCTION: No recent vascular distribution infarction is seen. EXTRA-AXIAL FLUID COLLECTIONS None MIDBRAIN: Unremarkable STEPHANIE: Unremarkable MEDULLA: Unremarkable SINUSES: Postsurgical change ORBITS: Grossly unremarkable MASTOIDS: Unremarkable BONY STRUCTURES Intact ADDITIONAL FINDINGS: CT/CT head/brain wo con IMPRESSION: No acute findings. Impression dictated by: Soren Patterson M.D. 02/03/2025 5:05 PM Dictation Location: [place] [address] Electronically authenticated by: [id number] Y Date: 02/03/2025 17:05
--- NOTE | 2025-02-03 16:07 | CT_ITS ---
The [address] [address] Patient Name: MEG FERNANDEZ MRN: [id number] date: 1965 Sex: F Assigned Patient Location: ED.MAIN Current Patient Location: ED.MAIN Accession/Order Number: [id number] Exam Date: 02/03/2025 16:38 Report Date: 02/03/2025 17:10 At the request of: YAMIA SANTIAGO MD Procedure: CT cervical spine wo con CT Cervical Spine withoutcontrast TECHNIQUE: Axial imaging with 2-D and 3-D reconstruction. The CT exam was performed using one or more the following dose reduction techniques: Automated exposure control, adjustment of the MA and/or Kv according to patient size, or use of the iterative reconstruction technique. COMPARISON: None HISTORY: Fell. Poor historian POST SURGERY CHANGES: Unremarkable postsurgical fusion of the upper cervical spine. BONY ALIGNMENT: Adequate BONY SPINAL CANAL: Patent central bony canal FRACTURE: None BONY LESIONS: None SOFT TISSUES: Unremarkable DEGENERATIVE CHANGES: Anterior hyperostosis. Extensive chronic degenerative endplate changes at C6-7 level. Multilevel facet degeneration. Chronic changes that dense. LUNG APICES: Unremarkable ADDITIONAL FINDINGS: Calcified plaquing of the carotid bifurcations. No thyroid nodule. CT/CT cervical spine wo con IMPRESSION: No acute process extensive C6-7 degeneration. Impression dictated by: Soren Patterson M.D. 02/03/2025 5:10 PM Dictation Location: [place] [address] Electronically authenticated by: [id number] Y Date: 02/03/2025 17:10
[2025-02-03 16:08] VITALS: PULSE 91
--- NOTE | 2025-02-03 16:21 | CT_ITS ---
[address] [address] Patient Name: MEG FERNANDEZ MRN: [id number] date: 1965 Sex: F Assigned Patient Location: ED.MAIN Current Patient Location: ED.MAIN Accession/Order Number: [id number] Exam Date: 02/03/2025 16:38 Report Date: 02/03/2025 17:15 At the request of: YAIMA SANTIAGO MD Procedure: CT chest wo con CT Chest without contrast TECHNIQUE: Axial imaging with 2-D reconstruction. The CT exam was performed using one or more the following dose reduction techniques: Automated exposure control, adjustment of the MA and/or Kv according to patient size, or use of the iterative reconstruction technique. History: Fell. Poor historian COMPARISON: None THYROID: Unremarkable TRACHEA AND BRONCHI: Patent ESOPHAGUS: Unremarkable. HEART: Within normal limits PERICARDIAL EFFUSION: Trace low-density CORONARY ARTERY CALCIFICATION: Present MEDIASTINUM: No adenopathy. No pneumoperitoneum. No mediastinal hematoma. PULMONARY BERT: No hilar mass or adenopathy is seen. THORACIC AORTA Unremarkable LUNG NODULE None LUNGS: Lungs are clear PLEURAL EFFUSION: None PNEUMOTHORAX: No pneumothorax seen. CHEST WALL: No abnormality AXILLA:Unremarkable BONY STRUCTURES no acute displaced fractures. Thoracic hyperostosis. Degenerative change. UPPER ABDOMEN: Cholecystectomy. Indeterminate left renal lesions exophytic measuring up to 15 mm. Possibly small cysts. CT/CT chest wo con IMPRESSION: No acute traumatic injury of the chest. No acute displaced fractures. Impression dictated by: Soren Patterson M.D. 02/03/2025 5:15 PM Dictation Location: [place] [address] Electronically authenticated by: [id number] Y Date: 02/03/2025 17:15
[2025-02-03 16:29] LABS: Hematocrit 34.9 % (36.0-48.0); Hemoglobin 11.1 g/dL (12.0-16.0); Immature Granulocytes Abs Auto 0.02 10^3/uL (0.00-0.03); Immature Granulocytes Pct Auto 0.2 % (0.0-0.5); Lymphocytes Absolute Auto 3.1 10^3/uL (1.2-3.8); Mean Corpuscular HGB Conc 31.8 g/dL (29.9-35.2); Mean Corpuscular Hemoglobin 31.5 pg (26.7-34.0); Mean Corpuscular Volume 99.1 fL (81.0-99.0); Platelet Count 277 10^3/uL (150-450); Red Blood Count 3.52 10^6/uL (4.20-5.40); White Blood Count 10.3 10^3/uL (4.0-11.0)
[2025-02-03 16:44] LABS: Creatine Kinase 125 U/L (26-192)
[2025-02-03 16:45] LABS: Alanine Aminotransferase 13 U/L (14-59); Albumin Globulin Ratio 0.7; Albumin Level 2.9 g/dL (3.4-5.0); Alkaline Phosphatase 103 U/L (46-116); Anion Gap 4.0; Aspartate Amino Transferase 16 U/L (15-37); Blood Urea Nitrogen 30.0 mg/dL (7.0-18.0); Calcium 8.8 mg/dL (8.5-10.1); Carbon Dioxide 27.9 mmol/L (21.0-32.0); Chloride 102 mmol/L (98-107); Estimated GFR (African America 42 (>=60 mL/min/1.73m^2); Estimated GFR (Non-African Ame 35 (>=60 mL/min/1.73m^2); Globulin 4.4 g/dL; Glucose 149 mg/dL (74-106); Potassium 3.9 mmol/L (3.5-5.1); Sodium 130 mmol/L (136-145); Total Protein 7.3 g/dL (6.4-8.2)
--- OUTSIDE RECORDS SUMMARY | 2025-02-03 16:49 | XMS_ITS | Clinical Summary ---
Author Organization [facility] Address [address] [place] [address] Care Team Providers Care Billet Heater Name Role Phone Aamir Purcell DO Primary Care Provider [phone] Social History Tobacco UseTypesPacks/DayYears UsedDateSmoking Tobacco: Never AssessedUT Safety & EnvironmentAnswerDate RecordedFear of Current or Ex-PartnerNot on file 04/10/2023Emotionally AbusedNot on file04/10/2023hysically AbusedNot on file 04/10/2023Sexually AbusedNot on file4Physically or Sexually AbusedNot on file04/10/2023CommentsUnknownSex and Gender InformationValueDate RecordedSex Assigned at BirthNot on fileLegal BbwDvxztg60/29/2022 10:27 PM EDT Gender IdentityNot on fileSexual OrientationNot on file Last Filed Vital Signs Vital SignReadingTime TakenCommentsBlood Zbileodf285/7307 2:28 PM EDT Pulse--Szoibtrykmk48.1 ??C (98.7 ??F)08/26/2018 2:24 PM EDTRespiratory Rate-- Oxygen Saturation--Inhaled Oxygen Concentration--Rlqwmd59.9 kg (152 lb) 08/26/2018 2:24 PM TWXHhjtrp839.1 cm (5' 5 )08/26/2018 2:24 PM EDTBody Mass Index25.2907 2:24 PM EDT Plan of Treatment Health MaintenanceDue DateLast DoneCommentsCT Ksizcilavldg1963Colonoscopy 1963Colorectal Cancer Twniriqri1963FIT-DNA1963FIT1963 FOBT1963Medicare Annual Wellness (AWV)1965 8665Bcfyqwaejvmnl1963 Diabetes: Retinopathy Pdxivmltx35/21/1973Depression Ibngtqflh11/21/1975Diabetes: Urine Protein Kdniujazy56/21/1982Pap Smear02/07/1984Adult Rqdmrpu6702/06/1985 Cervical Cancer Hfrjnyrol96/21/1993HPV/Uqjrki5602/06/19937254Zwsgdiluw68/21/2003Zoster Vaccines (1 of 2)Diabetes: Hemoglobin A1C10/11/2018 07/11/2018COVID-19 [...] complete this topic Procedures Procedure NamePriorityDate/TimeAssociated DiagnosisCommentsHEMOGLOBIN O3DRbhss 07/11/2018 6:08 AM EDT from Last 3 Months or Most Recently Relevant to Health Maintenance Results * (ABNORMAL) Hemoglobin A1C (07/11/2018 6:08 AM EDT)ComponentValueRef RangeTest MethodAnalysis TimePerformed AtPathologist SignatureHemoglobin A1C8.9(H)4.0 - 6.0 %LAB CONVERSIONSEstimated Average Hiqyatf160(H)70 - 126 mg/dLLAB CONVERSIONSSpecimen (Source)Anatomical Location / [...] DateEnd Aamir Navarrete DO [address] [place] [address] [facility]10/19/21
--- OUTSIDE RECORDS SUMMARY | 2025-02-03 16:49 | XMS_ITS | Clinical Summary ---
Author Organization [facility] Address [address], [address] [place] [address] Care Team Providers Care Senior Maintenance Mechanic Name Role Phone Migue Cole MD Primary Care Provider [phone]- [phone] Allergies Active AllergyReactionsCriticalityNoted DateCommentsMoxifloxacin Hydrochloride RvqaAon5712/02/20111528IyiuvhqaaiKqncGuu84/15/2279RxuxhhgqnhlhGpneTqeb53/11/2017Peg 9311-Muu-Wwevz-Nacl-HreqzeEgib89/11/2017TapentadolOther (See Comments)Medium 10/31/2015 Mental status changes Medications [...] Active Problems ProblemNoted DateDiagnosed DateS/P cervical spinal mmlygx1404/02/2022nemia due to blood loss09/26/2021cute respiratory nxkbicw8809/25/2021Ventilator associated sqcfemxsm26/06/2022Tracheostomy care09/22/2021Tracheostomy in place09/22/2021 Delirium due to multiple qizzpzwspn85/02/2022ischarge planning rbcsdw7109/16/2021 CSF syidjpyhuj02/26/2022ther cranial cerebrospinal fluid leak08/22/2021 Kihvbpgmgjxevt45/29/4371PMDJZ41/28/2022Metabolic yqhottawqklakd85/14/2022MSSA (methicillin susceptible Staphylococcus aureus) quasfyimep09/14/2022epsis 06/29/2021taphylococcus aureus drtakiokhs15/13/9222Yileifdropuuun08/13/2022 Rrqgyeemxbs61/13/2022Type 2 diabetes mellitus with diabetic polyneuropathy 06/29/2021rimary icikvakjrxnu30/13/2022ltered mental state06/28/2021ellulitis of left culqpk7707/16/2018EncephalopathyToxic metabolic 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)Upper GI [...] InformationValueDate RecordedSex Assigned at BirthNot on fileLegal LzmRwxwrp20/10/2013 10:05 AM ESTGender IdentityNot on fileSexual OrientationNot on file Last Filed Vital Signs Vital SignReadingTime TakenCommentsBlood Bqaouezi223/8301/23/2023 10:54 AM EST Cwvgv445901/23/2023 10:54 AM DWHNwdjsyxtydo18.6 ??C (97.9 ??F)01/23/2023 10:54 AM ESTRespiratory Grtv267203/26/2022 10:54 AM ESTOxygen Trxgeigadh84%01/23/2023 10:54 AM ESTInhaled Oxygen Concentration--Xmqqvw52.2 kg (135 lb)01/23/2023 10:54 AM PESCptdaa460.1 cm (5' 5 )08/15/2022 9:03 AM EDTBody Mass Index22.47008/15/2022 9:03 AM EDT Plan of Treatment Health MaintenanceDue DateLast DoneCommentsDepression Ecipln9302/06/1975HIV screen 1978Diabetic retinal exam1981Hepatitis C bjkigx0602/06/1981 DTaP/Tdap/Td vaccine (1 - Tdap)1982Pap smear02/07/1984Cervical cancer loydio2402/06/1993HPV (without or with Pap)02/06/19935622Kjiuxpqaajm42/21/2008Fecal- DNA (Cologuard): Average risk02/07/2008Sigmoidoscopy/CT eljiafgwacvg74/21/2008 Shingles vaccine (2 of 3)12/30/Diabetic Alb to Cr ratio (uACR) test06/25/reast cancer ysdzdd78/16/Pneumococcal 50+ years Vaccine (2 of 2 - PCV)/, 07/29/20126335Ppdlfl10/12/2023 06/28/2021, 06/28/2016, 06/25/2013, Additional history existsDiabetic foot exam /olorectal Cancer Ghnqgs0207/24/2022FIT/FOBT: Average risk /1C test (Diabetic or Prediabetic)/, 06/28/2021, 07/19/2017, Additional history existsGFR test (Diabetes, CKD 3-4, OR last GFR 15-59)/12/2021, 09/25/2021, 09/24/2021, Additional history existsAnnual Wellness Visit (Medicare)01/13/2023Respiratory Syncytial Virus (RSV) or age 60 yrs+ (1 - Risk 60-74 years 1-dose series)2023Flu vaccine (#1)/, 11/04/2013COVID-19 Vaccine ( - season)2024Pneumococcal 0-49 years CeikdfvRewdzfagmemy77/20/2020, 07/29/2012Hepatitis A vaccineAged OutNo longer eligible based [...] LotSystem Spnl Seal 3ml Exact Duraseal - [id number] Implanted:Qty: 1 on 07/06/2021 [facility]: Spine CervicalINTEGRA LIFESCIENCES BRETT-[id number] / / Kit Bne Grft Xsm 1.4cc Rhbmp-2 Absrb Cllgn Spng Infuse - [id number] Implanted:Qty: 1 on 09/25/2021 [facility]: Spine CervicalMEDTRONIC SPINALGRAFT TECH-WD02/16/[id number] / [id number] / [id number] Cellr Bne Matrx Influx Sparc 5cc - [id number] Implanted:Qty: 1 on 09/25/2021 [facility]: Spine CervicalISTO TECHNOLOGIES INC-WD05/04/[id number] / [id number] / [id number] Cellr Bne Matrx Influx Sparc 5cc - [id number] Implanted:Qty: 1 on 09/25/2021 [facility]: Spine CervicalISTO TECHNOLOGIES INC-WD05/04/[id number] / [id number] / [id number] Spnl L34mm Kfu59iz Occipitocervical Up Thor Multiaxial - [id number] Implanted:Qty: 2 on 09/25/2021 [facility]: Spine CervicalMEDTRONIC SOFAMOR DANEK-[id number] / / Bishnu Spnl L25mm Dia3.5mm Occipitocervical Up Thor Precut - [id number] Implanted:Qty: 2 on 09/25/2021 by [facility]: Spine CervicalMEDTRONIC SOFAMOR DANEK-[id number] / / Set Screw Spinal M6 - [id number] Implanted:Qty: 4 on 09/25/2021 by [facility]: Spine CervicalMEDTRONIC SOFAMOR DANEK-[id number] / / Procedures Procedure NamePriorityDate/TimeAssociated DiagnosisCommentsBASIC METABOLIC PANEL W/ REFLEX TO MG FOR LOW CKhncuue59/11/2022 2:38 AM EDT HEMOGLOBIN X2JTsycvzl75/24/2022 7:34 AM EDT OCCULT BLOOD SCREENStat Sunquest Label print07/24/2021 2:30 PM EDT LIPID VBBVWLpdjdpo31/12/2022 9:38 PM EDT MICROALBUMIN, XARjplkij77/09/2014 7:05 AM EDT from Last 3 Months or Most Recently Relevant to Health Maintenance Results * (ABNORMAL) Basic Metabolic Panel w/ Reflex to MG (09/27/2021 2:38 AM EDT) ComponentValueRef RangeTest MethodAnalysis TimePerformed AtPathologist NbfkedkmdGnliyjl667(H)70 - 99 mg/dL09/27/2021 2:38 AM EDTMERCY LABORATORIESBUN 126 - 20 mg/dL09/27/2021 2:38 AM EDTMERCY LABORATORIESCreatinine0.540.50 - 0.90 mg/dL09/27/2021 2:38 AM EDTMERCY LABORATORIESCalcium9.18.6 - 10.4 mg/dL 09/27/2021 2:38 AM EDTMERCY HELXZRSHFFJIVymaas273974 - 144 mmol/L09/27/2021 2:38 AM EDTMERCY LABORATORIESPotassium3.2(L)3.7 - 5.3 mmol/L09/27/2021 2:38 AM EDTMERCY XRGWCGMHMUGMQplvzgsz07950 - 107 mmol/L09/27/2021 2:38 AM EDTMERCY JIOFQUOZRYAXBY82027 - 31 mmol/L09/27/2021 2:38 AM EDTMERCY LABORATORIESAnion Qqm507 - 17 mmol/L09/27/2021 2:38 AM EDTMERCY LABORATORIESGFR Non->60>60 mL/min09/27/2021 2:38 AM EDTMERCY LABORATORIESGFR >60>60 mL/min09/27/2021 2:38 AM EDTMERCY LABORATORIESGFR Comment 09/27/2021 2:38 AM EDTMERCY LABORATORIESComment: Average GFR for 50-59 years old: 93 mL/min/1.73sq m Chronic Kidney Disease: <60 mL/min/1.73sq m Kidney failure: <15 mL/min/1.73sq m ? eGFR calculated using average adult body mass. Additional eGFR calculator available at: ? http://www.Cellrox/multiple_crcl_2012.htm ? Specimen (Source)Anatomical Location / LateralityCollection Method / Volume Collection TimeReceived TimeBLOOD SPECIMEN / Wipmqtd1509/27/2021 2:38 AM EDT 09/27/2021 2:42 AM EDT Narrative Authorizing ProviderResult TypeResult StatusDarleen Carmona MDCHEMISTRY ORDERABLES Edited Result - FinalPerforming OrganizationAddressCity/State/ZIP CodePhone Number [facility] [address] [place] [address], [facility] [phone] * Hemoglobin A1C (09/09/2021 7:34 AM EDT)ComponentValueRef RangeTest Method Analysis TimePerformed AtPathologist SignatureHemoglobin A1C5.14.0 - 6.0 % 09/09/2021 7:34 AM EDTMERCY LABORATORIESEstimated Avg Gvefdfr320ff/dL 09/09/2021 7:34 AM EDTMERCY LABORATORIESComment: The ADA and AACC recommend providing the estimated average glucose result to permit better patient understanding of their HBA1c result. Specimen (Source)Anatomical Location / LateralityCollection Method / Volume Collection TimeReceived Time09/09/2021 7:34 AM EDT09/09/2021 8:11 AM EDT Narrative Authorizing ProviderResult TypeResult StatusChris Bascarlett MDCHEMISTRY ORDERABLES Final ResultPerforming OrganizationAddressCity/State/ZIP CodePhone Number [facility] [address] [place] [address], [facility] [phone] * (ABNORMAL) OCCULT BLOOD SCREEN (07/24/2021 2:30 PM EDT)ComponentValueRef Range Test MethodAnalysis TimePerformed AtPathologist SignatureOccult Blood, Stool #1POSITIVE(A)EGTRYZIO11/07/2022 2:30 PM EDTMERCY LABORATORIESDate, Stool #1 6,2,6647107/24/2021 2:30 PM EDTMERCY LABORATORIESTime, Stool #[id number] 2:30 PM EDTMERCY LABORATORIESSpecimen (Source)Anatomical Location / Laterality Collection Method / VolumeCollection TimeReceived TimeSTOOL SPECIMEN / Unknown 07/24/2021 2:30 PM EDT07/25/2021 12:13 AM EDT Narrative Authorizing ProviderResult TypeResult StatusXin [place] MDBODY FLUIDS AND STOOLS ORDERABLESFinal ResultPerforming OrganizationAddressCity/State/ZIP CodePhone Number [facility] [employer] [address] [place] [address], [facility] [phone] * LIPID PANEL (06/28/2021 9:38 PM EDT)ComponentValueRef RangeTest MethodAnalysis TimePerformed AtPathologist OafuvlknqOiymssrabih541<200 mg/dL06/28/2021 9:38 PM EDTMERCY LABORATORIESComment: Cholesterol Guidelines: <200 Desirable 200-240 ??Borderline >240 Undesirable HDL71>40 mg/dL06/28/2021 9:38 PM EDTMERCY LABORATORIESComment: HDL Guidelines: <40 Undesirable 40-59 ?Borderline >59 Desirable LDL Uglwzdjkbej069 - 130 mg/dL06/28/2021 9:38 PM EDTMERCY LABORATORIESComment: [...] / Volume Collection TimeReceived TimeBLOOD SPECIMEN / Hwcmbxp5306/28/2021 9:38 PM EDT 06/28/2021 9:38 PM EDT Narrative Authorizing ProviderResult TypeResult StatusSubrabola Jewell MDCHEMISTRY ORDERABLESFinal ResultPerforming OrganizationAddressCity/State/ZIP CodePhone Number [address] [address], [facility] [phone] * Microalbumin, Ur (06/25/2013 7:05 AM EDT)ComponentValueRef RangeTest Method Analysis TimePerformed AtPathologist SignatureAlbumin Urine12<21 mg/L 06/25/2013 9:11 PM EDTMHPN LABCreatinine, Ur166.139.0 - 259.0 mg/dL06/25/2013 9:11 PM EDTMHPN LABComment: The reference range and other method performance specifications have not been established for this body fluid. ??The test result must be integrated into the clinical context for interpretation. [employer] Wfqdj3jud/mg creat06/25/2013 9:11 PM EDTMHPN LABUrine Microalbumin Hktcxr7906/25/2013 9:11 PM EDTMHPN LABComment: REFERENCE RANGE NORMAL ? = 0 - 13 ?? mcg/mg creat BORDERLINE = 14 - 30 ??mcg/mg creat ABNORMAL = >30 mcg/mg creat Performed at [place] [address] Specimen (Source)Anatomical Location / LateralityCollection Method / Volume Collection TimeReceived Time06/25/2013 7:05 AM EDT06/25/2013 7:06 AM EDT Narrative Authorizing ProviderResult TypeResult StatusDanitorsten ZIMMERMAN ORDERABLES Edited Result - FinalPerforming OrganizationAddressCity/State/ZIP CodePhone Number [facility] [address] [place] [address], [facility] [phone] [facility] [...] MemberRelationshipSpecialtyStart DateEnd Date Migue Cole MD [address] [place] [address] PCP - GeneralInternal Medicine08/14/21
--- OUTSIDE RECORDS SUMMARY | 2025-02-03 16:49 | XMS_ITS | Clinical Summary ---
Author Organization [facility] Address [address] [place] [address] Phone Care Team Providers Care Patient Assessment Coordinator Name Role Phone Physician, Pcp Unknown Primary Care Provider Dayanna vailable Allergies Active AllergyReactionsCriticalityNoted GqhvOplqqfegVxlkwbfnfp05/17/2022 OfdwpergkbFghmysj45/17/2022 Medications MedicationSigDispense QuantityRefillsLast FilledStart DateEnd DateStatus insulin [...] if needed (pain).Active Active Problems ProblemNoted DateDiagnosed HqsuLozhisgnjvcegr90/18/0658Kkpmxdfqu66/18/2022Chest pain of unknown /17/2022 Medical History Medical [...] RecordedSex Assigned at BirthNot on fileLegal Sex Lymqja7904/05/2021 1:23 PM ESTGender IdentityNot on fileSexual OrientationNot on file Last Filed Vital Signs Vital SignReadingTime TakenCommentsBlood Sltkccov539/8104/06/2021 7:37 PM EST Krnns243904/06/2021 7:37 PM WDLCyhzdjkczhz78.5 ??C (97.7 ??F)04/06/2021 7:37 PM ESTRespiratory Fpnk299004/06/2021 7:37 PM ESTOxygen Gnamaohltf112%04/06/2021 7:37 PM ESTInhaled Oxygen Concentration--Qpbvqx59 kg (147 lb 11.3 oz)04/06/2021 10:26 AM BEAFllvcs513 cm (4' 11.84 )04/06/2021 10:26 AM ESTBody Mass Ryyvt7060/18/2022 10:26 AM EST Plan of Treatment Health MaintenanceDue DateLast DoneCommentsBreast Cancer Zgkftwfti1963 Colorectal Cancer Screening: Saeuysmsago1963Diabetes: Annual Foot Exam 1973DTaP,Tdap,and Td Vaccines (1 - Tdap)1982Cervical Cancer Screening: Pap Smear02/07/1984RSV Immunization Adult Patients (1 - Risk 50-74 years 1-dose series)2013Zoster Vaccines (2 of 3) Pneumococcal Vaccine: 50+ Years (2 of 2 - PCV)/, 07/29/2012 HIV Zutkbgkui58/17/2022Hepatitis C Dymoivvbt83/17/2022Medicare Annual Wellness Visit2Diabetes: Blood Sugar Control Test (HGBA1C)/, 03/15/2021, 2Diabetes: Annual Retina Eye Exam Diabetes: Annual Urine Albumin-Creatinine Ratio (uACR)ocial Influencers of Health Nrzxgjcla602Diabetes: Annual GFR (Glomerular Filtration Rate)/, 04/05/2021, 03/15/2021, Additional history existsHypertension/CHF/CAD Annual BMP Blood Test04/06/2022 04/06/2021, 04/05/2021, 03/15/2021, Additional history existsDepression Raqaimzxq67/01/2025OVID-19 Vaccine (2024- season)2024Influenza Vaccine (#1)/, 11/04/2013, 11/04/2013Cholesterol [...] this topic Procedures Procedure NamePriorityDate/TimeAssociated DiagnosisCommentsCOMPREHENSIVE METABOLIC SXPRNXihfpcg33/18/2022 4:22 AM EST HEMOGLOBIN Z1CXerokyz74/18/2022 12:42 AM EST from Last 3 Months or Most Recently Relevant to Health Maintenance Results * (ABNORMAL) Comprehensive metabolic panel (04/06/2021 4:22 AM EST)Component ValueRef RangeTest MethodAnalysis TimePerformed AtPathologist SignatureSodium 579630 - 145 mmol/L LAB CHEMISTRY METHOD 04/06/2021 5:31 AM [facility] LABPotassium4.23.6 - 5.1 mmol/L LAB CHEMISTRY METHOD 04/06/2021 5:31 AM [facility] FYFVacmfdjw67344 - 107 mmol/L LAB CHEMISTRY METHOD 04/06/2021 5:31 AM [facility] UTYIR242(L)22 - 32 mmol/L LAB CHEMISTRY METHOD 04/06/2021 5:31 AM [facility] LABAnion Gap96 - 18 LAB CHEMISTRY METHOD 04/06/2021 5:31 AM [facility] VZJHeroqlt828(H)70 - 99 mg/dL LAB CHEMISTRY METHOD 04/06/2021 5:31 AM [facility] ZAYQJI66(H)8 - 20 mg/dL LAB CHEMISTRY METHOD 04/06/2021 5:31 AM [facility] LABCreatinine1.06 0.60 - 1.30 mg/dL LAB CHEMISTRY METHOD 04/06/2021 5:31 AM [facility] LZHbITI31 mL/min/1.73m2 LAB CHEMISTRY METHOD 04/06/2021 5:31 AM [facility] LABBUN/Creatinine Ratio20.8(H)12.0 - 20.0 LAB CHEMISTRY METHOD 04/06/2021 5:31 AM [facility] LABCalcium9.08.9 - 10.3 mg/dL LAB CHEMISTRY METHOD 04/06/2021 5:31 AM [facility] LABAST (SGOT)14(L) 15 - 41 unit/L LAB CHEMISTRY METHOD 04/06/2021 5:31 AM [facility] LABALT (SGPT)117 - 52 unit/L LAB CHEMISTRY METHOD 04/06/2021 5:31 AM [facility] LABAlkaline Yqhuzsgpmig5733 - 91 unit/L LAB CHEMISTRY METHOD 04/06/2021 5:31 AM [facility] LABTotal Protein 6.36.1 - 7.9 g/dL LAB CHEMISTRY METHOD 04/06/2021 5:31 AM [facility] LABAlbumin3.4(L) 3.5 - 4.8 g/dL LAB CHEMISTRY METHOD 04/06/2021 5:31 AM [facility] LABTotal Bilirubin 0.40.3 - 1.2 mg/dL LAB CHEMISTRY METHOD 04/06/2021 5:31 AM [facility] LABSpecimen (Source)Anatomical Location / LateralityCollection Method / VolumeCollection TimeReceived TimeBloodVenous blood specimen / UnknownVenipuncture / Unknown 04/06/2021 4:22 AM EST04/06/2021 5:03 AM EST Narrative Authorizing ProviderResult TypeResult StatusAkojo HERNANDEZ BLOOD ORDERABLES Final ResultPerforming OrganizationAddressCity/State/ZIP CodePhone Number [facility] [address] [place] [address] * (ABNORMAL) Hemoglobin A1c (04/06/2021 12:42 AM EST)ComponentValueRef RangeTest MethodAnalysis TimePerformed AtPathologist SignatureHemoglobin A1C11.8(H)<=5.6 % LAB CHEMISTRY METHOD 04/06/2021 12:31 PM [facility] ([facility]) LABComment: HbA1c values of 5.7-6.4 percent indicate an increased risk for developing diabetes mellitus. HbA1c values greater than or equal to 6.5 percent are diagnostic of diabetes mellitus. For diagnosis of diabetes in individuals without unequivocal hyperglycemia, results should be confirmed by repeat testing. Mean Bld Glu Estim.292mg/dL LAB CHEMISTRY METHOD 04/06/2021 12:31 PM [facility] LABSpecimen (Source) Anatomical Location / LateralityCollection Method / VolumeCollection Time Received TimeBloodVenous blood specimen / UnknownVenipuncture / Unknown 04/06/2021 12:42 AM EST04/06/2021 12:50 AM EST Narrative Authorizing ProviderResult TypeResult StatusAkojo HERNANDEZ BLOOD ORDERABLES Final ResultPerforming OrganizationAddressCity/State/ZIP CodePhone Number [facility] [address] [place] [address] from Last 3 Months or Most Recently [...]
--- OUTSIDE RECORDS SUMMARY | 2025-02-03 16:49 | XMS_ITS | Clinical Summary ---
Author Organization [facility] Address [address] [place], [place] [address] Care Team Providers Care Maintenance Custodian Name Role Phone BasiliaTobias Lars PALACIOS Primary Care Provider [phone] Allergies Active AllergyReactionsCriticalityNoted DateCommentsMoxifloxacinRash,Swelling, Xddtjks5603/23/2015CephalexinHives,Swelling,Nioqhru1503/23/2015TapentadolMental Status Ginzpr2810/31/2015 Medications MedicationSigDispense QuantityRefillsLast FilledStart DateEnd DateStatus metFORMIN [...] InformationValueDate RecordedSex Assigned at BirthNot on fileLegal OumNsfzsa61/28/2015 9:26 AM EST Gender IdentityNot on fileSexual OrientationNot on file Last Filed Vital Signs Vital SignReadingTime TakenCommentsBlood Ofaodmnt610/6909 3:09 PM EDT Tpuxq3266 3:09 PM EDTTemperature--Respiratory Wkjf264605/02/2015 3:50 PM EDTOxygen Saturation--Inhaled Oxygen Concentration--Weight--Qgfbff038.1 cm (5' 5 )03/23/2015 12:42 PM ESTBody Mass Index-- Plan of Treatment Health MaintenanceDue DateLast DoneCommentsAnxiety Ihfepkoir93/21/1981Depression Zjbjizzcv59/21/1981HIV Gkqwppccz68/21/1981Hepatitis C Guhisetpa56/21/1981 DTaP,Tdap,Td Vaccine (1 - Tdap)1982Cervical Cancer Somrltljl46/21/1984 Mammogram Htcheuppw18/21/2003CT Yyriqkcejpmy24/21/2008Cologuard (FIT-DNA) 02/07/20087497Swqfupspllc44/21/2008Colorectal Cancer Oftmzlauk26/21/2008Fecal Occult Blood02/07/2008Lipid Xttuklvai18/21/4132Eeuhvcfwhfypa71/21/2008Pneumococcal Vaccine: 50+ (1 of 1 - PCV)2013Shingrix Vaccine (1 of 2)2013Diabetes Tvhryalcg74/04/, 03/23/2015Covid-19 Vaccine (1 - 2024- season) 2024Influenza Vaccine (#1)2024RSV Vaccine (1 - 1-dose 75+ series) 2038 Procedures Procedure NamePriorityDate/TimeAssociated DiagnosisCommentsHEMOGLOBIN B3GBoelwgg 03/23/2015 2:21 PM EST 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 HgbA1c greater or equal to 6.5% is considered diagnostic of diabetes. Estimated Average Glucose>240mg/dL03/23/2015 10:11 PM ESTOHIO [facility] MAIN LABORATORYComment: eAG: (Estimated average glucose) is a calculated value from HgbA1c and is cash application representative of the average blood glucose level in the last 2-3 month period. Specimen (Source)Anatomical Location / LateralityCollection Method / Volume Collection TimeReceived TimeBlood specimen (specimen)WHOLE BLOOD SPECIMEN / Umjyfai1003/23/2015 2:21 PM EST03/23/2015 2:26 PM EST Narrative Authorizing ProviderResult TypeResult StatusPayam SoltanzadehLABORATORYFinal ResultPerforming OrganizationAddressCity/State/ZIP CodePhone Number [facility] [address] [place] [address] from Last 3 Months or Most Recently Relevant to Health Maintenance Insurance Care Teams Team MemberRelationshipSpecialtyStart DateEnd Date Tobias Cui DO PCP - GeneralFamily Ihiehjqv12/28/15
--- OUTSIDE RECORDS SUMMARY | 2025-02-03 16:49 | XMS_ITS | Clinical Summary ---
Author Organization [facility] Address [address] [place] [address] Care Team Providers Care Electronic Technician Name Role Phone Aamir Purcell DO Primary Care Provider [phone] Allergies Active AllergyReactionsCriticalityNoted DateCommentsMoxifloxacinItching,Swelling ,Rash,Other (See Comments)Low04/07/2017 Abdominal pain SkaixdwcbiYanfzxbNsmo05/19/2018 burning OtevotmszaAlnbcjy80/19/2018 Medications MedicationSigDispense QuantityRefillsLast FilledStart DateEnd DateStatus carvediloL [...] 05/28/2021ctive Active Problems ProblemNoted DateDiagnosed DateOther headache /02/2022 Assessment & Plan (05/20/2021 9:25 AM EDT): [...] monitor for improvement with treatment of these. Wdjdrnm0305/19/2021 Assessment & Plan (05/20/2021 9:25 AM EDT): [...] disorder by virtue of having diabetes. Cervical /01/2022Neck jrihlo456724Tecobqesehxfn61/06/2020Foot ulcer02/25/2019 Overview (09/13/2020): OTHER PART OF FOOT Non-pressure chronic ulcer of other part of left foot with fat layer exposed 08/14/2017Non-pressure chronic ulcer of left lower leg with fat layer exposed 03/28/2017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 involvement without evidenceof awoouhzq99/26/2018Non-pressure chronic ulcer of left ankle with fat layer ejnaxzi3909/06/2016Non-pressure chronic ulcer of right ankle limited to breakdown of skin08/14/2016Type 2 diabetes mellitus with foot ulcer06/19/2016Fracture of third toe, left, vwwzre9702/15/2016Closed displaced fracture of first metatarsal bone of left foot with routine nttpbic6204/17/2015 Qkavaj6203/27/2015Chronic ulcer of great toe of left foot03/27/2015Glaucoma 03/27/2015High fsszpdbamzd42/08/0797Avyzhjztccue02/08/2016Thyroid disorder 03/27/2015 Immunizations ImmunizationAdministration DatesNext DueInfluenza, Mevvmhejoxr91/20/2020 Pneumococcal, Ykusdvurdyx39/20/2020 Family History Medical HistoryRelationCommentsPancreatic cancerFatherDiabetesMotherRelation StatusCommentsFatherDeceasedMotherDeceased Social History Tobacco UseTypesPacks/DayYears UsedDateSmoking Tobacco: HbplyyUbrihfejoe38 04/07/1979 - 04/07/1989mokeless Tobacco: Never Comments:doesn't remember ho w much she smoked Alcohol UseStandard Drinks/WeekCommentsNot Currently0 (1 standard drink = 0.6 oz pure alcohol)rarelyCommentsNoSex and Gender InformationValueDate RecordedSex Assigned at BirthNot on fileLegal UmnHtfprc83/25/2014 4:56 AM EDT Gender VvwthbwgSrggja90/18/2021 1:29 PM EDTSexual HhuzesmmgjiTqemltvr84/29/2021 3:56 PM EDT Last Filed Vital Signs Vital SignReadingTime TakenCommentsBlood Ahxnmjku917/7904 5:11 PM EDT Cedex7866 5:11 PM ZOXJhsuekvxzft92.8 ??C (98.3 ??F)05/29/2021 5:11 PM EDTRespiratory Fxnm8316 5:11 PM EDTOxygen Kfjxepeqoe71%05/29/2021 5:11 PM EDTInhaled Oxygen Concentration--Vkwjax30.2 kg (167 lb 15.9 oz)05/28/2021 5:00 AM UCRjtfEkliki039.1 cm (5' 5 )05/19/2021 9:04 AM EDTBody Mass Index27.96 05/19/2021 9:04 AM EDT Plan of Treatment Health MaintenanceDue DateLast DoneCommentsCT Blujikjdrsgi1963Colonoscopy 1963Colorectal Cancer Screening/Artychmhlc1963Fecal DNA1963 Fecal occult blood test (FOBT,FIT)1963Wellness Visit1966Depression Screening/Follow-Up (PHQ-2/9)1975HIV Ncrtzzkra56/21/1978Hepatitis C Faqoiovtv59/21/1981Tetanus/Diphtheria/Pertussis (1 - Tdap)1982Pap Smear 02/07/1984Cervical Cancer Uhanugbny59/21/1993HPV/Kwzrng7802/06/1993Zoster Vaccines (2 of 3)Pneumococcal Vaccine: 50+ Years [...] / LotStent-07/27/2012 Implanted:Qty: 1 on 07/27/2012StentRight: EyeGLAUKOS [id number] ISTENT / [id number] / [id number]:Non-clinical testing has demonstrated that the iStent?? Trabecular Micro-Bypass Stent (Models [id number] and [id number]) is MR Conditional. A patient with this [...] above, the iStent?? Trabecular Micro-Bypass Stent (Models [id number] and [id number]) is not exp ected to produce a clinically significant temperature rise after 15 minutes of continuous scanning.In non-clinical testing, the image artifact caused by the device extends less than 15 mm from the device when imaged with a gradient echo pulse sequence and a 3.0 T MRI system Insurance * Guarantor: Cleo Georges LAccount TypeRelation to PatientDate of BirthPhone Billing AddressPersonal/MuoaycRazj1965 [phone] (Home) [address] [place] [id number] MemberSubscriberPlan / Payer (Effective 2022-Present)Name:Cleo Georges Member ID:[id number] Relation to Subscriber:SelfName:Cleo Georges Subscriber ID:[id number] Payer ID:Not on file Group ID:Not on file Type:Not on file Address: [facility] [place] [address] [place] [address] Advance Directives For more information, please contact: [phone] TypeDate RecordedPatient RepresentativeExplanationPower of Attorney05/28/2021 12:09 PMPower of Attorney05/28/2021 12:01 PM * Full Code - Unverified (Latest Code Status on File) Date ActivatedDate InactivatedComments05/18/2021 10:06 PM05/29/2021 7:56 PM Care Teams Team MemberRelationshipSpecialtyStart DateEnd Date Aamir Purcell DO [address] [place] [address] PCP - GeneralFamily Medicine03/28/17
--- OUTSIDE RECORDS SUMMARY | 2025-02-03 16:49 | XMS_ITS | Clinical Summary ---
Author Organization [facility] Address [address] [place] [address] Care Team Providers Care Motors And Generators Inspector Name Role Phone Aamir Purcell DO Primary Care Provider [phone] Adilson Hernandez MD Unavailable Kartik Meija MD Unavailable [phone] Tisha Arriaga MD Unavailable Luis Miguel Kaur MD Unavailable [phone] Chris Zavala OD Unavailable Unavailable Allergies Active AllergyReactionsCriticalityNoted DateCommentsMoxifloxacinRashHigh 10/28/20169369SdjknlqiapSyujwsbPedi86/11/2017 burning TdpsoaryodXxyd75/11/2017 Passed out Medications MedicationSigDispense QuantityRefillsLast FilledStart DateEnd [...] mL 05/15/2021ctive Active Problems ProblemNoted DateDiagnosed DateChronic blonvfdi31/10/2021Internal derangement of right knee09/26/2020rimary open angle glaucoma (POAG) of right eye, severe stage04/20/2020 Overview (04/20/2020): Added automatically from request for surgery Primary open angle glaucoma (POAG) of left eye, severe stage12/31/2019 Overview (12/31/2019): Added automatically from request for surgery [id number] Ysocmiqmtjovs71/06/2020Nuclear sclerotic cataract of left eye12/16/2018 Overview (12/16/2018): Added automatically from request for surgery [id number] CIDP (chronic inflammatory demyelinating polyneuropathy)06/24/2018Vitamin D iwnuunomkv40/31/2019DDD (degenerative disc disease), rekouoxz67/31/2019 Osteoarthritis cervical spine03/19/2018Postmenopausal brbenz7603/19/2018Osteopenia determined by x-ray03/19/2018Primary osteoarthritis of left wrist03/19/2018 Primary osteoarthritis of right wrist03/19/2018Primary osteoarthritis of both knees03/19/2018Primary osteoarthritis of both hips03/19/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 03/19/2018Neuropathy of hand02/16/20185982Daobign52/06/2018Disorder of bone and cigmxldge57/06/2018History of Raynaud's vezydxbd95/06/2018Bilateral hand pain 01/22/2018Chronic pain of both knees01/22/2018Long term current use of non- steroidal anti-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 (NSAID)01/22/2018Alkaline phosphatase elevation 01/22/20189916Qqpipq79/06/5231Camlydwzbjx21/06/2018Chronic pain of both shoulders 01/22/2018Bilateral biceps uitnqepkqo23/06/2018Tendonitis of both rotator cuffs 01/22/2018Bilateral wrist pain01/22/2018Osteoarthritis of both hands01/22/2018 Hip pain, right01/22/2018Mixed jcjekigbwhjzoq07/30/2018Diabetes mellitus 10/16/2017Chest pain10/09/2017 Assessment & Plan (10/10/2017 11:24 AM EDT): Seen by cardiology ACS ruled out - Enzymes <0.02 x4 sets Continue medical management Follow-up with cardiology as outpatient Xkxdtfjp48/21/2018MGUS (monoclonal gammopathy of unknown significance)03/16/2017 Assessment & Plan (10/10/2017 11:26 AM EDT): Per history - Follow up with hematology/oncology as outpatient 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 involvement without evidenceof fzdyzyux56/26/2018Fracture of third toe, left, espzwp6802/15/2016Closed displaced fracture of first metatarsal bone of left foot with routine qfrtexd3804/17/20152487Wphnwxqhmtkl61/05/2014Coronary atherosclerosis 06/24/2012Diaphragmatic wukrpe8806/24/2012Gastroesophageal reflux disease 06/24/20120064Lzaemdst35/08/2880Mwqupyqkjorxxh45/08/2013Irritable bowel syndrome 06/24/2012sthma Assessment & Plan (10/10/2017 [...] left, initial encounter Knee injury, right, initial nissvxfhw82 Immunizations ImmunizationAdministration DatesNext DueInfluenza Nnrgfxz9311/04/2013Influenza Vaccine 0.5ml10/07/2019Influenza Vaccine, Qyzlcebsl13/18/2014Pneumococcal Polysac 23-Valent Trvcbff5907/29/2012Pneumococcal Vaccine, Olcykoefztq87/20/2020 Zoster Vaccine, Live11/04/2013 Family History Medical HistoryRelationNameCommentsCancer- OtherFatherDiabetesFatherDiabetes MotherHeart Disease - OtherMotherHypertensionMotherStrokeMotherBreast Cancer OtherCancer- OtherOtherDiabetesOtherHeart Disease - OtherOtherHypertensionOther StrokeOtherBlindnessNeg HxGlaucomaNeg HxRelationNameStatusCommentsFatherDeceased MotherDeceasedOther Social History Tobacco UseTypesPacks/DayYears UsedDateSmoking Tobacco: BxmodxYheetsbiyg8Oohf: 1997Smokeless Tobacco: Never Tobacco Cessation:Counseling Given: No Alcohol UseStandard Drinks/WeekCommentsNo0 (1 standard drink = 0.6 oz pure alcohol)CommentsNoSex and Gender InformationValueDate RecordedSex Assigned at BirthNot on fileLegal VnsDtbilv02/04/2015 3:05 PM ESTGender Identity Hkxrig7510/15/2016 6:49 AM EDTSexual OrientationNot on file Last Filed Vital Signs Vital SignReadingTime TakenCommentsBlood Ptyzukkw649/6303 3:31 PM EDT Klicp5213 3:31 PM REFVzdpyagkvzt84.2 ??C (97.2 ??F)05/11/2021 1:31 PM EDTRespiratory Nvrr2226 3:31 PM EDTOxygen Dvpcivwvev76%01/18/2021 8:57 AM ESTInhaled Oxygen Concentration--Buneri77.3 kg (155 lb)05/08/2021 1:53 PM EDT Bkesbe547.4 cm (5' 5.5 )05/08/2021 1:53 PM EDTBody Mass Index25.403 1:53 PM EDT Plan of Treatment Health MaintenanceDue DateLast DoneCommentsDIABETIC FOOT EXAM1963TETANUS 1963HIV SCREENING HZQOGOAMMT73/21/1978TDAP (ADULT)1982CERVICAL CANCER SCREENING ECVNEBSGMK47/21/1984COLORECTAL CANCER SCREENING DISCUSSION 02/07/2008ZOSTER (SHINGLES) VACCINE (2 of 3)12/30/201309/MAMMOGRAM SCREENING CGHOQMLMDG10/16/201902/EYE EXAM/05/2017PNEUMOCOCCAL VACCINE SERIES (2 of 2 - PCV)/, 07/29/2012HBA1C TEST /03/2021, 03/15/2021, 09/01/2020, Additional history existsLIPIDS /, 09/01/2020, 05/15/2020, Additional history existsURINE MICROALBUMIN TEST/, 09/01/2020, 05/15/2020, Additional history existsCOVID-19 VACCINE ( - 2024- season)2024INFLUENZA VACCINE (#1)/, 11/04/2013, 11/04/2013RSV VACCINE (1 - 1-dose 75+ series)2038HEPATITIS C VIRUS BEAZADBWVYffkhwdrh46/06/2018, 03/06/2017 PNEUMOCOCCAL VACCINE AOSCHMWpwnlwvgxxzq53/20/2020, 07/29/2012POTASSIUM Zlohwyqqefvr43/27/2022, 01/13/2021, 09/01/2020, Additional history existsTSH Lhlffbwqfsbe42/27/2022, 09/01/2020, 03/13/2020, Additional history existsHEP B VACCINEAged OutNo longer eligible based on patient's age to complete this topic Medical Devices ImplantedTypeAreaManufacturerDevice IdentifierShelf Expiration DateModel / Serial / LotLens Au00t0 D 23.5 - [id number] Implanted:Qty: 1 on 12/23/2018 by Grace Washington MD at [facility] REV LOCLeft: EyeALCON [id number]/31/[id number] D 23.5 / [id number] / Implant Opth 250sq Mm Jo 1 Qdrnt Ins Fx Sut Hl Rcs Knt Cpb - [id number] Implanted:Qty: 1 on 02/23/2020 by Grace Washington MD at [facility] REV LOCLeft: EyeADVANCED [employer] (IMANI)[id number] / [id number] / Osc Tissue Cornea Padmini [id number] Implanted:Qty: 1 on 02/23/2020 by Grace Washington MD at [facility] REV LOCLeft: [facility] [place]08/16/2020GLYCERIN / / [id number] Procedures Procedure NamePriorityDate/TimeAssociated DiagnosisCommentsHC CREATININE NOT VRDRWXvhdolv68/27/2022 10:50 AM EST Type 1 diabetes mellitus with diabetic neuropathy HEMOGLOBIN G4ZAkxvzps64/27/2022 8:58 AM EST Type 1 diabetes mellitus with diabetic neuropathy TSH W/FT4 FMXDGDNjqkfrg84/27/2022 8:58 AM EST Type 1 diabetes mellitus with diabetic neuropathy Acquired hypothyroidism COMPREHENSIVE METABOLIC TVNABRqkqvxq13/27/2022 8:58 AM EST Type 1 diabetes mellitus with diabetic neuropathy LIPID PANEL W CALCULATED KQWFamncvc64/27/2022 8:58 AM EST Type 1 diabetes mellitus with diabetic neuropathy HEPATITIS A, B, KFfajkor54/06/2018 4:29 PM EST Cervicalgia Disorder of bone [...] Fatigue, unspecified type History of Raynaud's syndrome 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 accountant current use of non-steroidal anti-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 (NSAID) Alkaline phosphatase elevation Type 1 diabetes mellitus with diabetic neuropathy DIABETIC EYE EXAM (OUTSIDE)Jchrmjk2206/20/2017MAMMO SCREENING BILATERALRoutine 04/04/2017 12:46 PM EST Screening mammogram, encounter for from Last 3 Months or Most Recently Relevant to Health Maintenance Results * (ABNORMAL) MICROALBUMIN/CREATININE RATIO (03/15/2021 10:50 AM EST)Component ValueRef RangeTest MethodAnalysis TimePerformed AtPathologist Signature CREATININE, MG/DL, MQSGF438.5MG/DL[address]IONComment:NO NORMAL VALUES ESTABLISHED FOR RANDOM SPECIMENS Microalbumin, Urine, Lxytdw361.1(H)0 - 16.7 mg/LG[address]MICROALBUMIN/CREATININE VTEGI244.2(H)1.3 - 30.0 mg MALB/g [address]Comment: Testing performed at [place], [place] [address]Zpuyhquz (Source)Anatomical Location / LateralityCollection Method / VolumeCollection TimeReceived Time03/15/2021 10:50 AM EST03/15/2021 11:00 AM EST Narrative Authorizing ProviderResult TypeResult StatusLuis Miguel Kaur MDBODY FLUIDS & STOOLS ORDERABLESFinal ResultPerforming OrganizationAddressCity/State/ZIP Code Phone Number [place] [phone] * (ABNORMAL) TSH W/FT4 REFLEX (03/15/2021 8:58 AM EST)ComponentValueRef Range Test MethodAnalysis TimePerformed AtPathologist SignatureTSH, Reflex FT47.180 (H)0.46 - 4.68 uIU/ML[address] Comment:Testing performed at [place], [place] [address] Specimen (Source)Anatomical Location / LateralityCollection Method / Volume Collection TimeReceived StmnOxxge58/27/2022 8:58 AM EST03/15/2021 9:00 AM EST Narrative Authorizing ProviderResult TypeResult StatusLuis Miguel Kaur MDENDOCRINOLOGYFinal ResultPerforming OrganizationAddressCity/State/ZIP CodePhone Number [place] [phone] * (ABNORMAL) HEMOGLOBIN A1C (03/15/2021 8:58 AM EST)ComponentValueRef RangeTest MethodAnalysis TimePerformed AtPathologist SignatureHEMOGLOBIN A1C11.7(H)0 - 6 %[facility] - [address] - [place] Comment: NORMAL <5.7% PREDIABETES 5.7-6.4% DIABETES 6.5% OR HIGHER Estimated Average Ybxakhb188ii/dLBUCWEXNER MEDICAL CENTER - [address] - [facility]pecimen (Source)Anatomical Location / Laterality Collection Method / VolumeCollection TimeReceived FoyjIursv19/27/2022 8:58 AM EST03/15/2021 9:00 AM EST Narrative Authorizing ProviderResult TypeResult StatusTojudah Kaur MDHEMATOLOGY ORDERABLESFinal ResultPerforming OrganizationAddressCity/State/ZIP CodePhone Number [facility] - [address] - [place] [address] [place] [address] * (ABNORMAL) LIPID PANEL W CALCULATED LDL (03/15/2021 8:58 AM EST)ComponentValue Ref RangeTest MethodAnalysis TimePerformed AtPathologist SignatureCHOLESTEROL 226(H)107 - 217 MG/DL[address] ZDWPIYWKKEKD005(H)0 - 150 MG/DL43 [address] ST[address]ETHDL SVQMCNGPVNL9704 - 75 MG/DL[address]LDL CHOLESTEROL, RMFOYQQKZJ557PA/DL[address]VLDL Cholesterol, Apekcflefd55(H)5.0 - 25 MG/DL [address]TCHOL/HDL RATIO, MANUAL ENTER4.71RATI[address]Comment: RISK ?TOTAL/HDL RATIO ?MEN ? WOMEN 1/2 AVERAGE ?3.43 ?3.27 AVERAGE ?4.97 ?4.44 2X AVERAGE ? 9.55 ?7.05 3X AVERAGE ?23.99 ? 11.04 Testing performed at [place], [place] [address] Specimen (Source)Anatomical Location / LateralityCollection Method / Volume Collection TimeReceived DohxRswip37/27/2022 8:58 AM EST03/15/2021 9:00 AM EST Narrative Authorizing ProviderResult TypeResult StatusTodd M Natasha MDCHEMISTRY ORDERABLESFinal ResultPerforming OrganizationAddressCity/State/ZIP CodePhone Number [address] [place] [address] * (ABNORMAL) COMPREHENSIVE METABOLIC PANEL (03/15/2021 8:58 AM EST)Component ValueRef RangeTest MethodAnalysis TimePerformed AtPathologist SignatureGlucose 222(H)70 - 100 MG/DL[address] Comment: NORMAL <100 mg/dL PREDIABETES 101-126 mg/dL DIABETES 126 mg/dL or higher BUN26(H)7 - 20 MG/DL[address] CREATININE SERUM1.200.7 - 1.2 MG/DL[address]ODIUM139137 - 145 MMOL/[address]Potassium4.53.5 - 5.1 MMOL/[address]CHLORIDE10598 - 107 MMOL/[address]Comment:Please note: Triglyceride levels of 600mg/dL or higher may positively bias chloride results by approximately 2.1 mmolCALCIUM9.68.4 - 10.2 MG/DL[address]PROTEIN, TOTAL7.36.3 - 8.2 GM/DL[address]bumin3.93.5 - 5.0 G/dl43 [address]ETBILIRUBIN, TOTAL0.40.2 - 1.3 MG/DL[address] JHY5196 - 36 IU/[address]KAL[address] PMBSHUUITGB01432 - 126 IU/[address]CARBON DIOXIDE (CO2)2422 - 30 MMOL/[address]A/G Ratio1.1(L)1.3 - 2.[address]T14<35 IU/LG[address]ETSTIMATED GFR, NON OXXF10cm/min/1.73sq.[address]STIMATED GFR, TXXIDGJZ47 ml/min/1.73sq.[address]GFR COMMENTAverage GFR for 50-59 years old = 93.[address]Comment: Chronic Kidney disease, GFR = <60. Kidney failure, GFR = <15. The GFR estimate is not adjusted for extreme body surface area or acute process, nor has it been validated for women or ethnic groups other than and . Testing performed at [place], [place] [address] Specimen (Source)Anatomical Location / LateralityCollection Method / Volume Collection TimeReceived RfmvPdbaw17/27/2022 8:58 AM EST03/15/2021 9:00 AM EST Narrative Authorizing ProviderResult TypeResult StatusTodd M Darmody MDCHEMISTRY ORDERABLESFinal ResultPerforming OrganizationAddressCity/State/ZIP CodePhone Number [address] [address] * HEPATITIS A, B, C (01/22/2018 4:29 [...] with a HCV Nucleic Acid Amplification test ([id number]). PERFORMED AT [facility] Specimen (Source)Anatomical Location / LateralityCollection Method / [...] Guarantor: Rose Georges TypeRelation to PatientDate of BirthSouthern [facility] Address[facility]/RztejdMnnw1965 [address] [place] [address] * Guarantor: Rose Georges TypeRelation to PatientDate of [facility] Address[facility]/GxcpriMmsn1965 [address] [place] [address] Advance Directives For more information, please contact: [phone] (7:30 AM - 6PM [place]/[facility], Friday-Friday) * Full Code (Latest Code Status on File) Date ActivatedDate [facility]10/09/2017 4:19 PM Care Teams Team MemberRelationshipSpecialtyStart DateEnd Date Aamir Purcell DO PCP - GeneralFamily Medicine03/06/17 Adilson Hernandez MD [address] [place] [address] Ophthalmology07/18/17 Kartik Mejia MD [address] [place] [address] Pain Vfowzsyb73/8/18 Tisha Arriaga MD [address] [place] [id number] NeurologistNeurology07/18/17 Luis Miguel Kaur MD [address] [place] [address] EndocrinologistEndocrinology, Diabetes & Metabolism03/06/17 Chris Zavala, OD [address] [place] [address] Optometry03/15/20
--- OUTSIDE RECORDS SUMMARY | 2025-02-03 16:49 | XMS_ITS | Clinical Summary ---
Author Organization [facility] Healthcare Address [address] [place] [address] Care Team Providers Care Nursing Resident Name Role Phone Aamir Purcell MD Primary Care Provider [phone] Allergies Active AllergyReactionsCriticalityNoted DateCommentsCephalexinHives,Itching, Unknown,Rash,BfrsgoqqXuli37/15/2012 burning MoxifloxacinItching,Unknown,Rash,DnszxvzaNifk06/15/2012 Abdominal pain Peg 4401-Zqp-Licoy-Nacl-ImsrxzToor78/11/1465HgktonakfnFwpsyhfHfis82/19/2014 Mental status changes Passed out Medications MedicationSigDispense [...] each day at the same timeActive HYDROcodone-acetaminophen ([place]) 5-325 MG tablet Take 1 tablet by [...] of both eyes, moderate stage06/28/2024Left posterior capsular ilssfjsnbqrtz72/12/2025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 aksiujbn11/12/2025Dry eyes06/28/2024 Encounters DateTypeDepartmentCare NlrcWcqqxdjvysk29/19/2025bstract [facility] [address] [facility] [address] [place] [address] Aamir Purcell MD 12/23/2024bstract [facility] [address] [facility] [address] [place] [address] Aamir Purcell MD 12/22/2024[facility]phone [facility] [address] [facility] [address] [place] [address] [place] Chávez, ARLETTE 12/13/2024Refill [facility] [address] [facility] [address] [place] [address] Mariam JanyMURPHY Gastroesophageal reflux disease without esophagitis (Primary Dx); Cough, unspecified type; Acquired oguamapmhzhdaz98/21/2025Telephone [facility] [address] [facility] [address] [place] [address] [place] Chávez, ARLETTE 11/30/2024Telephone [facility] [address] [facility] [address] [place] [address] [place] Chávez, ARLETTE 11/23/2024Telephone [facility] [address] [facility] [address] [place] [address] [place] Chávez, ARLETTE 11/23/2024Telephone [facility] [address] [facility] [address] [place] [address] Arias Cruz MD 11/22/2024[facility]phone [facility] [address] [facility] [address] [place] [address] [place] Chávez, LITHOGRAPHIC PHOTOGRAPHER APPRENTICE from Last 3 Months Social History Tobacco UseTypesPacks/DayYears UsedDateSmoking Tobacco: Never Assessed CommentsUnknownSex and Gender InformationValueDate RecordedSex Assigned at Not on fileLegal DncByofaa82/15/2023 6:48 PM EDTGender IdentityNot on fileSexual OrientationNot on file Last Filed Vital Signs Vital SignReadingTime TakenCommentsBlood Pressure--Pulse--Temperature-- Respiratory Rate--Oxygen Saturation--Inhaled Oxygen Concentration--Regrwz26.9 kg (152 lb)04/03/2021 12:00 PM DQTYkjgte922.1 cm (5' 5 )04/26/2022 12:00 PM ESTBody Mass Index25.29004/03/2021 12:00 PM EST Plan of Treatment Not on file Insurance Care Teams Team MemberRelationshipSpecialtyStart DateEnd Date Aamir Purcell MD [address] [facility] [place] [address] PCP - GeneralFamily Medicine08/12/22
[2025-02-03] MEDS: TRAMADOL HCL 50 MG TABLET PO (17:02)
--- NOTE | 2025-02-03 17:10 | ED.FALL1 ---
HPI HPI - Fall General Chief Complaint: Fall Stated Complaint: FALL Time Seen by Provider: 02/03/25 15:59 Source: patient and caregiver Mode of arrival: ambulance History of Present Illness HPI Narrative: The patient is a 59-year-old female with history of multiple comorbidities coming to us from assisted facility with a concern of unwitnessed fall, the patient is herself have dementia and she does not actually provide a lot of history as she said that she was just in [place] when I asked her what happened, and the patient was in the [facility] The patient is complaining of left bilateral chest wall pain mostly at the axillary line and also left forearm pain There was no reported loss of consciousness or any head injury But the patient apparently was found on the floor laying backward Related Data Home Medications ?Medication ?Instructions ?Recorded ?Confirmed aspirin 325 mg tablet 325 mg PO DAILY 12/19/23 02/03/25 brimonidine 0.2 % eye drops 1 drp ophthalmic (eye) BID 12/19/23 02/03/25 carvedilol 12.5 mg tablet 12.5 mg PO Q12H 12/19/23 02/03/25 cholecalciferol (vitamin D3) 10 400 unit PO DAILY 12/19/23 02/03/25 mcg (400 unit) tablet (Vitamin D3) divalproex 500 mg tablet,delayed 750 mg PO Q12H 12/19/23 02/03/25 release docusate sodium 100 mg capsule 100 mg PO BID PRN constipation 12/19/23 02/03/25 duloxetine 60 mg capsule,delayed 60 mg PO DAILY 12/19/23 02/03/25 release ferrous sulfate 325 mg (65 mg 325 mg PO DAILY 12/19/23 02/03/25 iron) tablet fluocinonide 0.05 % topical 1 applic topical DAILY PRN rash 12/19/23 12/20/23 ointment guaifenesin 600 mg tablet, 600 mg PO BID congestion 12/19/23 02/03/25 extended release 12 hr (Mucinex) insulin glargine 100 unit/mL (3 15 unit subcut DAILY 12/19/23 03/10/24 mL) subcutaneous pen (Lantus Solostar U-100 Insulin) levothyroxine 100 mcg tablet 100 mcg PO DAILY 12/19/23 02/03/25 loperamide 2 mg capsule 2 mg PO Q6H PRN loose stool 12/19/23 02/03/25 multivitamin 1 tab PO DAILY 12/19/23 02/03/25 omeprazole 40 mg capsule,delayed 40 mg PO DAILY 12/19/23 02/03/25 release potassium chloride 20 mEq 20 meq PO DAILY 12/19/23 02/03/25 tablet,extended release(part/cryst) sucralfate 100 mg/mL oral 1 g PO ACHS 12/19/23 02/03/25 suspension (Carafate) tramadol 50 mg tablet 50 mg PO Q12H PRN pain 12/19/23 02/03/25 cholecalciferol (vitamin D3) 25 25 mcg PO DAILY 03/10/24 02/03/25 mcg (1,000 unit) tablet aluminum-mag hydroxide-simethicone 10 ml PO Q3H PRN GI bleeding 02/03/25 02/03/25 200 mg-200 mg-20 mg/5 mL oral susp prophylaxis (Antacid-Antigas) ammonium lactate 12 % lotion 1 applic topical BID 02/03/25 02/03/25 (AmLactin) benzonatate 100 mg capsule 100 mg PO TID PRN cough 02/03/25 02/03/25 calcium carbonate 1,000 mg PO DAILY 02/03/25 02/03/25 dextromethorphan-guaifenesin 10 10 ml PO Q6H PRN cough 02/03/25 02/03/25 mg-100 mg/5 mL oral syrup (Chest Congestion Relief DM) dulaglutide 0.75 mg/0.5 mL 0.75 mg subcut DAILY 02/03/25 02/03/25 subcutaneous pen injector (Trulicity) gel base no.41 (bulk) (Hydrogel) 1 ea miscellaneous .MON., WEDS., 02/03/25 02/03/25 FRI. hydroxyzine HCl 25 mg tablet 25 mg PO Q8H 02/03/25 02/03/25 insulin degludec 100 unit/mL (3 68 unit subcut Q24H 02/03/25 02/03/25 mL) subcutaneous pen latanoprost 0.005 % eye drops 1 drp ophthalmic (eye) DAILY 02/03/25 02/03/25 meclizine 25 mg tablet 25 mg PO TID PRN dizziness 02/03/25 02/03/25 nitrofurantoin 100 mg PO Q12H 02/03/25 02/03/25 monohydrate/macrocrystals 100 mg capsule tizanidine 4 mg tablet 4 mg PO Q8H PRN muscle spasticity 02/03/25 02/03/25 triamcinolone acetonide 0.1 % 1 applic topical BID 02/03/25 02/03/25 topical cream Allergies Allergy/AdvReac Type Severity Reaction Status Date / Time cephalexin Allergy Unknown Verified 12/19/23 20:32 moxifloxacin (From Avelox) Allergy Unknown Verified 12/19/23 20:32 polyethylene glycol 3350 Allergy Unknown Verified 12/19/23 20:32 (From Miralax) Opioid HPI Opioid Management Most Recent Pain and Opioid Data: Last Pain Scale 4 Today, 17:02 Last MAR Pain Assessment Today, 17:02 Review of Systems ROS Status of ROS 10 or more systems reviewed and unremarkable except as noted in history and below [facility] Medical History (Updated 02/03/25 @ 17:25 by Vale Marcelino MD) GERD with apnea without esophagitis ?K21.9 - Gastro-esophageal reflux disease without esophagitis (ICD-10) ?R06.81 - Apnea, not elsewhere classified (ICD-10) Paralysis of vocal cords or larynx, unspecified ?J38.00 - Paralysis of vocal cords and larynx, unspecified (ICD-10) Hypertension ?I10 - Essential (primary) hypertension (ICD-10) Hypercapnia ?R06.89 - Other abnormalities of breathing (ICD-10) Hypoxia ?R09.02 - Hypoxemia (ICD-10) Asthma ?J45.909 - Unspecified asthma, uncomplicated (ICD-10) Polyneuropathy ?G62.9 - Polyneuropathy, unspecified (ICD-10) Polyneuritis, chronic inflammatory demyelinating ?G61.81 - Chronic inflammatory demyelinating polyneuritis (ICD-10) Obstructive sleep apnea ?G47.33 - Obstructive sleep apnea (adult) (pediatric) (ICD-10) Hyperlipidemia ?E78.5 - Hyperlipidemia, unspecified (ICD-10) Anxiety ?F41.9 - Anxiety disorder, unspecified (ICD-10) UTI (urinary tract infection) ?N39.0 - Urinary tract infection, site not specified (ICD-10) Cardiac murmur ?R01.1 - Cardiac murmur, unspecified (ICD-10) Spinal stenosis ?M48.00 - Spinal stenosis, site unspecified (ICD-10) Fusion of spine, cervical region ?M43.22 - Fusion of spine, cervical region (ICD-10) Depression ?F32.A - Depression, unspecified (ICD-10) Cough ?R05.9 - Cough, unspecified (ICD-10) Constipation ?K59.00 - Constipation, unspecified (ICD-10) Diarrhea ?R19.7 - Diarrhea, unspecified (ICD-10) Nasal congestion ?R09.81 - Nasal congestion (ICD-10) Hypokalemia ?E87.6 - Hypokalemia (ICD-10) Vitamin D deficiency ?E55.9 - Vitamin D deficiency, unspecified (ICD-10) Iron (Fe) deficiency anemia ?D50.9 - Iron deficiency anemia, unspecified (ICD-10) Generalized idiopathic epilepsy and epileptic syndromes, without status epilepticus, not intractable ?G40.309 - Generalized idiopathic epilepsy and epileptic syndromes, not intractable, without status epilepticus (ICD-10) Michelle infection of genital region ?B37.49 - Other urogenital candidiasis (ICD-10) Diabetes ?E11.9 - Type 2 diabetes mellitus without complications (ICD-10) Glaucoma ?H40.9 - Unspecified glaucoma (ICD-10) Social History Little interest or pleasure in doing things: not at all Feeling down, depressed, or hopeless: not at all Exam Narrative Exam Narrative: Nurses notes and vital signs reviewed and patient is not hypoxic. General: Well-appearing and in no apparent distress. Skin: Warm, dry, no pallor noted. No rash. Head: Normocephalic, atraumatic. Neck: Supple, non-tender. Cardiovascular: Regular Rate and Rhythm without murmur, gallop or rub. Respiratory: No accessory muscle use or respiratory distress. Lungs are clear to auscultation, no wheezing, rales or rhonchi Chest Wall: Tenderness palpation of the midaxillary line bilaterally no ecchymosis Back: No midline thoracic or lumbar vertebral tenderness. No CVA tenderness Musculoskeletal: normal ROM, no calf or popliteal tenderness, There is mild tenderness upon palpation of the mid forearm with no elbow swelling or tenderness with full range of movement GI: Abdomen is soft, non-distended. Normal bowel sounds. No masses appreciated. No tenderness to palpation. No rebound, guarding, or rigidity noted. Neurological: A&O x1 No cranial nerve dysfunction observed. Constitutional Vital Signs, click to edit/add: Last Vital Signs Temp 97.5 F L 02/03/25 15:53 Pulse 94 H 02/03/25 15:53 Resp 14 02/03/25 15:53 BP 162/72 H 02/03/25 15:53 Pulse Ox 97 02/03/25 15:53 O2 Del Method Room Air 02/03/25 15:53 Course Vital Signs Vital signs: Vital Signs Temperature 97.5 F L 02/03/25 15:53 Pulse Rate 94 H 02/03/25 15:53 Respiratory Rate 14 02/03/25 15:53 Blood Pressure 162/72 H 02/03/25 15:53 Pulse Oximetry 97 02/03/25 15:53 Oxygen Delivery Method Room Air 02/03/25 15:53 Temperature 97.5 F L 02/03/25 15:53 Pulse Rate 94 H 02/03/25 15:53 Respiratory Rate 14 02/03/25 15:53 Blood Pressure 162/72 H 02/03/25 15:53 Pulse Oximetry 97 02/03/25 15:53 Oxygen Delivery Method Room Air 02/03/25 15:53 MDM - Fall MDM Narrative Medical decision making narrative: CT head as well as CT cervical spine showed no acute pathology x-ray of the forearm showed no acute pathology with a small effusion which right now The instruction will be that in case of any continuous pain to repeat x-ray after a week CT of the chest showed no acute pathology Right now Kwasi wrap will be applied to the forearm and the patient also had a CBC and chemistry showing some hyponatremia The patient will be discharged to the fdc with the instruction and advice for increasing hydration and fall precaution The patient to follow-up with the primary care within 2 to 3 days and to come back to the ER in case of any worsening of the current symptoms or any new symptoms or concerns Lab Data Labs: Lab Results 02/03/25 Range/Units 16:22 WBC 10.3 (4.0-11.0) 10^3/uL RBC 3.52 L (4.20-5.40) 10^6/uL Hgb 11.1 L (12.0-16.0) g/dL Hct 34.9 L (36.0-48.0) % MCV 99.1 H (81.0-99.0) fL MCH 31.5 (26.7-34.0) pg MCHC 31.8 (29.9-35.2) g/dL RDW 13.1 (11.0-15.0) % Plt Count 277 (150-450) 10^3/uL MPV 9.4 L (9.5-13.5) fL Neut % (Auto) 56.2 (43.0-75.0) % Lymph % (Auto) 30.2 (20.5-60.0) % Sampson % (Auto) 7.6 (1.7-12.0) % Eos % (Auto) 5.4 (0.9-7.0) % Baso % (Auto) 0.4 (0.2-2.0) % Neut # (Auto) 5.8 (1.4-6.5) 10^3/uL Lymph # (Auto) 3.1 (1.2-3.8) 10^3/uL Sampson # (Auto) 0.8 (0.3-0.8) 10^3/uL Eos # (Auto) 0.6 (0.0-0.7) 10^3/uL Baso # (Auto) 0.0 (0.0-0.1) 10^3/uL Abs Immat Gran (auto) 0.02 (0.00-0.03) 10^3/uL Imm/Tot Granulo (auto) 0.2 (0.0-0.5) % Sodium 130 L (136-145) mmol/L Potassium 3.9 (3.5-5.1) mmol/L Chloride 102 (98-107) mmol/L Carbon Dioxide 27.9 (21.0-32.0) mmol/L Anion Gap 4.0 BUN 30.0 H (7.0-18.0) mg/dL Creatinine 1.53 H (0.55-1.02) mg/dL Est GFR ( Amer) 42 L (>=60 mL/min/1.73m^2) Est GFR (Non-Af Amer) 35 L (>=60 mL/min/1.73m^2) BUN/Creatinine Ratio 19.6 Glucose 149 H (74-106) mg/dL Calcium 8.8 (8.5-10.1) mg/dL Total Bilirubin 0.1 L (0.2-1.0) mg/dL AST 16 (15-37) U/L ALT 13 L (14-59) U/L Alkaline Phosphatase 103 (46-116) U/L Total Creatine Kinase 125 (26-192) U/L Total Protein 7.3 (6.4-8.2) g/dL Albumin 2.9 L (3.4-5.0) g/dL Globulin 4.4 g/dL Albumin/Globulin Ratio 0.7 Discharge Plan Discharge Chief Complaint: Fall Clinical Impression: Fall, Contusion of forearm, Hyponatremia, Chest wall pain Patient Disposition: Home, Self-Care Time of Disposition Decision: 17:24 Prescriptions / Home Meds: No Action aspirin 325 mg tablet 325 mg PO DAILY brimonidine 0.2 % drops 1 drp OPHTHALMIC (EYE) BID carvedilol 12.5 mg tablet 12.5 mg PO Q12H cholecalciferol (vitamin D3) [Vitamin D3] 10 mcg (400 unit) tablet 400 unit PO DAILY divalproex 500 mg tablet,delayed release (DR/EC) 750 mg PO Q12H docusate sodium 100 mg capsule 100 mg PO BID PRN (Reason: constipation) duloxetine 60 mg capsule,delayed release(DR/EC) 60 mg PO DAILY ferrous sulfate 325 mg (65 mg iron) tablet 325 mg PO DAILY fluocinonide 0.05 % ointment 1 applic TOPICAL DAILY PRN (Reason: rash) sucralfate [Carafate] 100 mg/mL suspension 1 g PO ACHS insulin glargine [Lantus Solostar U-100 Insulin] 100 unit/mL (3 mL) insulin pen 15 unit subcut DAILY levothyroxine 100 mcg tablet 100 mcg PO DAILY loperamide 2 mg capsule 2 mg PO Q6H PRN (Reason: loose stool) guaifenesin [Mucinex] 600 mg tablet extended release 12hr 600 mg PO BID multivitamin Tablet 1 tab PO DAILY omeprazole 40 mg capsule,delayed release(DR/EC) 40 mg PO DAILY potassium chloride 20 mEq tablet,ER particles/crystals 20 meq PO DAILY tramadol 50 mg tablet 50 mg PO Q12H PRN (Reason: pain) cholecalciferol (vitamin D3) 25 mcg (1,000 unit) tablet 25 mcg PO DAILY calcium carbonate 200 mg calcium (500 mg) tablet,chewable 1,000 mg PO DAILY alum-mag hydroxide-simeth [Antacid-Antigas] 200-200-20 mg/5 mL suspension 10 ml PO Q3H PRN (Reason: GI bleeding prophylaxis) tizanidine 4 mg tablet 4 mg PO Q8H PRN (Reason: muscle spasticity) benzonatate 100 mg capsule 100 mg PO TID PRN (Reason: cough) meclizine 25 mg tablet 25 mg PO TID PRN (Reason: dizziness) Trulicity 0.75 mg/0.5 mL pen injector 0.75 mg SUBCUT DAILY ammonium lactate [AmLactin] 12 % lotion 1 applic topical BID triamcinolone acetonide 0.1 % cream 1 applic TOPICAL BID latanoprost 0.005 % drops 1 drp OPHTHALMIC (EYE) DAILY Rx Instructions: RT. EYE Hydrogel Gel 1 ea miscellaneous .MON., WEDS., FRI. nitrofurantoin monohyd/m-cryst 100 mg capsule 100 mg PO Q12H insulin degludec 100 unit/mL (3 mL) insulin pen 68 unit SUBCUT Q24H hydroxyzine HCl 25 mg tablet 25 mg PO Q8H dextromethorphan-guaifenesin [Chest Congestion Relief DM] 10-100 mg/5 mL syrup 10 ml PO Q6H PRN (Reason: cough) Print Language: Stateless Instructions: Hyponatremia (ED), Contusion in Adults (ED), Fall Prevention (ED), Chest Wall Pain (ED) Additional Instructions: The patient need another x-ray in a week for her left forearm in case of continuous pain Please encourage hydration Fall precaution Referrals: MAHIN BERNAL [Primary Care Provider, Family Practice] - 1 week
== END 2025-02-03 19:02 | disposition home or self-care (01) ==
PROVIDERS: Emergency Provider Emergency Medicine; PCP Family Medicine
DX: R07.89 Other chest pain (principal); S50.12XA Contusion of left forearm, initial encounter; F03.90 Unspecified dementia, unspecified severity, without behavioral disturbance, psychotic disturbance, mood disturbance, and anxiety; E87.1 Hypo-osmolality and hyponatremia; W19.XXXA Unspecified fall, initial encounter; E11.621 Type 2 diabetes mellitus with foot ulcer; L97.422 Non-pressure chronic 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
CPT/HCPCS: 36415; 70450; 71250; 72125; 73090; 76376; 80053; 82550; 85025; 99284; G0463

== ENCOUNTER 2025-02-05 16:40 | Emergency (ER) | payer MEDICARE, OTHER, MEDICAID, SELFPAY ==
--- OUTSIDE RECORDS SUMMARY | 2023-10-29 08:15 | XMS_ITS ---
Author Organization [facility] Address [address] [place] [address] [place] [address] Care Team Providers Care Fleet Mechanic Name Role Phone José Miguel Crouch;kaiden, Jesse Primary Care Provider Un available Jose Field Unavailable [phone] Encounters Encounter Location Date Provider Diagnosis [address] [address] 10/29/2023 Jose Field Plan Of Treatment No Information Progress Notes * Claudia FERNANDEZOB:1965 ([age] yo F)Acc No.[id number]:10/29/2023 Patient:?Cleo Fernandez :?SINDY RodriguezMDOB:1965???Age:58 Y???Sex: FemaleDate:4Phone:[phone]:[address] [place] [address]Ims:Willa Mayen;kaiden * Electronic signature of Jose Field DPM on 02/05/2025 at 05:23 PM ESTSign off status: Pending * Provider: Sallie Field DPM Date: 0 10/29/2023 Generated for Printing/Faxing/eTransmitting on:?02/05/2025 05:23 PM EST
--- OUTSIDE RECORDS SUMMARY | 2024-01-21 10:00 | XMS_ITS ---
Author Organization [facility] Address [address] [place] [address] [place] [address] Care Team Providers Care Wire Mesh Gate Assembler Name Role Phone José Miguel Crouch;kaiden, Jesse Primary Care Provider Un available Jose Field Unavailable [phone] Encounters Encounter Location Date Provider Diagnosis [address] [address] 01/21/2024 Jose Field Plan Of Treatment No Information Progress Notes * Claudia FERNANDEZOB:1965 ([age] yo F)Acc No.[id number]:01/21/2024 Patient:?Cleo Fernandez :?SINDY RodriguezMDOB:1965???Age:58 Y???Sex: FemaleDate:4Phone:[phone]:[address] [place] [address]Ftc:Willa Mayen;kaiden * Electronic signature of Jose Field DPM on 02/05/2025 at 05:22 PM ESTSign off status: Pending * Provider: Sallie Field DPM Date: 1 03/23/2023 Generated for Printing/Faxing/eTransmitting on:?02/05/2025 05:22 PM EST
--- OUTSIDE RECORDS SUMMARY | 2024-04-21 10:00 | XMS_ITS ---
Author Organization [facility] Address [address] [place] [address] [place] [address] Care Team Providers Care Lap Maker Name Role Phone José Miguel Crouch;kaiden, Jesse Primary Care Provider Un available Jose Field Unavailable [phone] Encounters Encounter Location Date Provider Diagnosis [address] [address] 04/21/2024 Jose Field Plan Of Treatment No Information Progress Notes * Claudia FERNANDEZOB:1965 ([age] yo F)Acc No.[id number]:04/21/2024 Patient:?Cleo Fernandez :?SINDY RodriguezMDOB:1965???Age:59 Y???Sex: FemaleDate:04/21/2024Phone:[phone]:[address] [place] [address]Mpi:Willa Mayen;kaiden * Electronic signature of Jose Field DPM on 02/05/2025 at 05:23 PM ESTSign off status: Pending * Provider: Sallie Field DPM Date: 0 04/21/2024 Generated for Printing/Faxing/eTransmitting on:?02/05/2025 05:23 PM EST
--- OUTSIDE RECORDS SUMMARY | 2024-06-09 08:45 | XMS_ITS ---
Author Organization [facility] Address [address] [place] [address] [place] [address] Care Team Providers Care Public Service Administrator Name Role Phone José Miguel Crouch;Jesse richey Primary Care Provider Un available Jose Field Unavailable [phone] REASON FOR VISIT L CALLUS only; not toenails Encounters Encounter Location Date Provider Diagnosis [address] [address] 06/09/2024 Jose Field Plan Of Treatment No Information Progress Notes * Claudia FERNANDEZOB:1965 ([age] yo F)Acc No.[id number]:06/09/2024 Patient:?Cleo Fernandez :?SINDY RodriguezMDOB:1965???Age:59 Y???Sex: FemaleDate:06/09/2024Phone:[phone]:[address] [place], [place] [id number]:Willa Mayen;kaiden Subjective: * Chief Complaints: * L CALLUS only; not toenails * Electronic signature of Jose Field DPM on 02/05/2025 at 05:23 PM ESTSign off status: Pending * Provider: Sallie Field DPM Date: 0 06/09/2024 Generated for Printing/Faxing/eTransmitting on:?02/05/2025 05:23 PM EST
--- OUTSIDE RECORDS SUMMARY | 2024-10-20 09:00 | XMS_ITS ---
Author Organization [facility] Address [address] [place] [address] [place] [address] Care Team Providers Care Ferryboat Operator Helper Name Role Phone José Miguel Crouch;kaiden, Jesse Primary Care Provider Un available Jose Field Unavailable [phone] Encounters Encounter Location Date Provider Diagnosis [address] [address] 10/20/2024 Jose Field Plan Of Treatment No Information Progress Notes * Claudia FERNANDEZOB:1965 ([age] yo F)Acc No.[id number]:10/20/2024 Patient:?Cleo Fernandez :?SINDY RodriguezMDOB:1965???Age:59 Y???Sex: FemaleDate:10/20/2024Phone:[phone]:[address] [place] [address]Htw:Willa Mayen;kaiden * Electronic signature of Jose Field DPM on 02/05/2025 at 05:23 PM ESTSign off status: Pending * Provider: Sallie Field DPM Date: 0 10/20/2024 Generated for Printing/Faxing/eTransmitting on:?02/05/2025 05:23 PM EST
--- OUTSIDE RECORDS SUMMARY | 2025-01-19 10:00 | XMS_ITS ---
Author Organization [facility] Address [address] [place] [address] [place] [address] Care Team Providers Care Media Relations Manager Name Role Phone José Miguel Crouch;kaiden, Jesse Primary Care Provider Un available Jose Field Unavailable [phone] Encounters Encounter Location Date Provider Diagnosis [address] [address] 01/19/2025 Jose Field Plan Of Treatment No Information Progress Notes * Claudia FERNANDEZOB:1965 ([age] yo F)Acc No.[id number]:01/19/2025 Patient:?Cleo Fernandez :?SINDY RodriguezMDOB:1965???Age:59 Y???Sex: FemaleDate:01/19/2025Phone:[phone]:[address] [place] [address]Rzb:Willa Mayen;kaiden * Electronic signature of Jose Field DPM on 02/05/2025 at 05:23 PM ESTSign off status: Pending * Provider: Sallie Field DPM Date: 1 03/22/2024 Generated for Printing/Faxing/eTransmitting on:?02/05/2025 05:23 PM EST
[2025-02-05 16:46] VITALS: BP 114/73; PULSE 90; TEMP 36.8; O2SAT 94; BMI 24.2
--- NOTE | 2025-02-05 16:57 | ED.GENADUL1 ---
HPI HPI - General Adult General Chief complaint: Fall Stated complaint: FALL Time Seen by Provider: 02/05/25 16:50 Source: medical record Mode of arrival: ambulance History of Present Illness HPI narrative: Patient is a 59-year-old female who presents to the ER from [facility] for evaluation of a possible fall. Per nursing staff the patient was witnessed by another resident to slip out of her wheelchair. EMS was called to transport patient to the hospital for evaluation. Upon arrival the patient is alert and oriented to her name and location, initially she states she did not recall falling out of her wheelchair but then states that there is what happened. She currently denies any injury pain or trauma. She initially complained of some low back pain but denied that on examination. She denies any dysuria. Patient sits up on her own well but does not ambulate well and typically uses a walker. Patient states she is at the facility learning how to walk and for longer distances will typically use a wheelchair. detention staff reports that the patient has done this in the past for attention-seeking behavior. DNR - CC Related Data Home Medications ?Medication ?Instructions ?Recorded ?Confirmed aspirin 325 mg tablet 325 mg PO DAILY 12/19/23 02/03/25 brimonidine 0.2 % eye drops 1 drp ophthalmic (eye) BID 12/19/23 02/03/25 carvedilol 12.5 mg tablet 12.5 mg PO Q12H 12/19/23 02/03/25 cholecalciferol (vitamin D3) 10 400 unit PO DAILY 12/19/23 02/03/25 mcg (400 unit) tablet (Vitamin D3) divalproex 500 mg tablet,delayed 750 mg PO Q12H 12/19/23 02/03/25 release docusate sodium 100 mg capsule 100 mg PO BID PRN constipation 12/19/23 02/03/25 duloxetine 60 mg capsule,delayed 60 mg PO DAILY 12/19/23 02/03/25 release ferrous sulfate 325 mg (65 mg 325 mg PO DAILY 12/19/23 02/03/25 iron) tablet fluocinonide 0.05 % topical 1 applic topical DAILY PRN rash 12/19/23 12/20/23 ointment guaifenesin 600 mg tablet, 600 mg PO BID congestion 12/19/23 02/03/25 extended release 12 hr (Mucinex) insulin glargine 100 unit/mL (3 15 unit subcut DAILY 12/19/23 03/10/24 mL) subcutaneous pen (Lantus Solostar U-100 Insulin) levothyroxine 100 mcg tablet 100 mcg PO DAILY 12/19/23 02/03/25 loperamide 2 mg capsule 2 mg PO Q6H PRN loose stool 12/19/23 02/03/25 multivitamin 1 tab PO DAILY 12/19/23 02/03/25 omeprazole 40 mg capsule,delayed 40 mg PO DAILY 12/19/23 02/03/25 release potassium chloride 20 mEq 20 meq PO DAILY 12/19/23 02/03/25 tablet,extended release(part/cryst) sucralfate 100 mg/mL oral 1 g PO ACHS 12/19/23 02/03/25 suspension (Carafate) tramadol 50 mg tablet 50 mg PO Q12H PRN pain 12/19/23 02/03/25 cholecalciferol (vitamin D3) 25 25 mcg PO DAILY 03/10/24 02/03/25 mcg (1,000 unit) tablet aluminum-mag hydroxide-simethicone 10 ml PO Q3H PRN GI bleeding 02/03/25 02/03/25 200 mg-200 mg-20 mg/5 mL oral susp prophylaxis (Antacid-Antigas) ammonium lactate 12 % lotion 1 applic topical BID 02/03/25 02/03/25 (AmLactin) benzonatate 100 mg capsule 100 mg PO TID PRN cough 02/03/25 02/03/25 calcium carbonate 1,000 mg PO DAILY 02/03/25 02/03/25 dextromethorphan-guaifenesin 10 10 ml PO Q6H PRN cough 02/03/25 02/03/25 mg-100 mg/5 mL oral syrup (Chest Congestion Relief DM) dulaglutide 0.75 mg/0.5 mL 0.75 mg subcut DAILY 02/03/25 02/03/25 subcutaneous pen injector (Trulicity) gel base no.41 (bulk) (Hydrogel) 1 ea miscellaneous .MON., WEDS., 02/03/25 02/03/25 FRI. hydroxyzine HCl 25 mg tablet 25 mg PO Q8H 02/03/25 02/03/25 insulin degludec 100 unit/mL (3 68 unit subcut Q24H 02/03/25 02/03/25 mL) subcutaneous pen latanoprost 0.005 % eye drops 1 drp ophthalmic (eye) DAILY 02/03/25 02/03/25 meclizine 25 mg tablet 25 mg PO TID PRN dizziness 02/03/25 02/03/25 nitrofurantoin 100 mg PO Q12H 02/03/25 02/03/25 monohydrate/macrocrystals 100 mg capsule tizanidine 4 mg tablet 4 mg PO Q8H PRN muscle spasticity 02/03/25 02/03/25 triamcinolone acetonide 0.1 % 1 applic topical BID 02/03/25 02/03/25 topical cream Allergies Allergy/AdvReac Type Severity Reaction Status Date / Time cephalexin Allergy Unknown Verified 02/05/25 16:46 moxifloxacin (From Avelox) Allergy Unknown Verified 02/05/25 16:46 polyethylene glycol 3350 Allergy Unknown Verified 02/05/25 16:46 (From Miralax) Opioid HPI Opioid Management Most Recent Opioid Data: Last Pain Scale 6 Today, 16:46 Last MAR Pain Assessment 02/03/25, 17:02 Review of Systems ROS Constitutional Denies: fever, chills or change in weight Eyes Denies: change in vision or blurry vision Ears, nose, mouth, and throat Denies: throat pain or neck pain Cardiovascular Denies: chest pain or palpitations Respiratory Denies: shortness of breath, cough or wheezing Gastrointestinal Denies: abdominal pain, nausea or vomiting Genitourinary Denies: painful urination Musculoskeletal Denies: back pain Neurological Denies: headache, numbness in extremities or weakness in extremities Psychiatric Denies: anxiety, mood swings or difficulty concentrating Hematologic/Lymphatic Denies: easy bruising Allergic/Immunologic Denies: throat swelling [facility] Medical History (Updated 02/05/25 @ 17:08 by COY Alfaro) GERD with apnea without esophagitis ?K21.9 - Gastro-esophageal reflux disease without esophagitis (ICD-10) ?R06.81 - Apnea, not elsewhere classified (ICD-10) Paralysis of vocal cords or larynx, unspecified ?J38.00 - Paralysis of vocal cords and larynx, unspecified (ICD-10) Hypertension ?I10 - Essential (primary) hypertension (ICD-10) Hypercapnia ?R06.89 - Other abnormalities of breathing (ICD-10) Hypoxia ?R09.02 - Hypoxemia (ICD-10) Asthma ?J45.909 - Unspecified asthma, uncomplicated (ICD-10) Polyneuropathy ?G62.9 - Polyneuropathy, unspecified (ICD-10) Polyneuritis, chronic inflammatory demyelinating ?G61.81 - Chronic inflammatory demyelinating polyneuritis (ICD-10) Obstructive sleep apnea ?G47.33 - Obstructive sleep apnea (adult) (pediatric) (ICD-10) Hyperlipidemia ?E78.5 - Hyperlipidemia, unspecified (ICD-10) Anxiety ?F41.9 - Anxiety disorder, unspecified (ICD-10) UTI (urinary tract infection) ?N39.0 - Urinary tract infection, site not specified (ICD-10) Cardiac murmur ?R01.1 - Cardiac murmur, unspecified (ICD-10) Spinal stenosis ?M48.00 - Spinal stenosis, site unspecified (ICD-10) Fusion of spine, cervical region ?M43.22 - Fusion of spine, cervical region (ICD-10) Depression ?F32.A - Depression, unspecified (ICD-10) Cough ?R05.9 - Cough, unspecified (ICD-10) Constipation ?K59.00 - Constipation, unspecified (ICD-10) Diarrhea ?R19.7 - Diarrhea, unspecified (ICD-10) Nasal congestion ?R09.81 - Nasal congestion (ICD-10) Hypokalemia ?E87.6 - Hypokalemia (ICD-10) Vitamin D deficiency ?E55.9 - Vitamin D deficiency, unspecified (ICD-10) Iron (Fe) deficiency anemia ?D50.9 - Iron deficiency anemia, unspecified (ICD-10) Generalized idiopathic epilepsy and epileptic syndromes, without status epilepticus, not intractable ?G40.309 - Generalized idiopathic epilepsy and epileptic syndromes, not intractable, without status epilepticus (ICD-10) Michelle infection of genital region ?B37.49 - Other urogenital candidiasis (ICD-10) Diabetes ?E11.9 - Type 2 diabetes mellitus without complications (ICD-10) Glaucoma ?H40.9 - Unspecified glaucoma (ICD-10) Social History Little interest or pleasure in doing things: not at all Feeling down, depressed, or hopeless: several days Exam Narrative Exam Narrative: Vital signs and nurse's notes reviewed. The patient is not hypoxic. General: The patient appears well and in no apparent distress. Patient is resting comfortably on cart. Skin: Warm, dry, no pallor noted. The patient has no evidence of rash, petechiae, or pupura noted. The lower legs were not examined as patient is wearing stockinettes. Head: Normocephalic, atraumatic, no temporal arterial tenderness. Neck: Supple, trachea mid-line, no tenderness, no lymphadenopathy. No meningeal signs. No nuchal rigidity. Eye: Pupils are equal, round and reactive to light, EOMI Ears, Nose, Mouth, and Throat: Oral mucosa is moist, TMs are clear bilaterally, no hemotympanum noted. Cardiovascular: Regular rate and rhythm Respiratory: Patient is in no distress, no accessory muscle use, lungs are clear to auscultation, no wheezing, rales or rhonchi Back: Non-tender, no CVA tenderness, patient has no tenderness to the midline cervical, thoracic or lumbar regions. Musculoskeletal: normal ROM, no tenderness, no swelling, normal strength 5/5 to upper extremities lower extremities have notable fatigue ankle dorsiflexion and plantarflexion is present bilaterally. She denies any pain to the bilateral hips knees or ankles with range of motion. Compartments are soft. She has no upper extremity complaints of pain. GI: Normal bowel sounds, no tenderness to palpation, no masses appreciated. No rebound, guarding, or rigidity noted. Neurological: Alert and oriented person, place and recent events normal equal rd manager strength, normal finger to nose, no pronator drift. The patient was not ambulated as she typically uses a walker but only does this with therapy and uses a wheelchair for travel. The patient has normal speech. The patient has normal coordination. Normal motor and sensory observed. Psychiatric: Cooperative Constitutional Vital Signs, click to edit/add: Last Vital Signs Temp 98.3 F 02/05/25 16:46 Pulse 90 02/05/25 16:46 Resp 18 02/05/25 16:46 BP 114/73 02/05/25 16:46 Pulse Ox 94 L 02/05/25 16:46 O2 Del Method Room Air 02/05/25 16:46 Course Vital Signs Vital signs: Vital Signs Temperature 98.3 F 02/05/25 16:46 Pulse Rate 90 02/05/25 16:46 Respiratory Rate 18 02/05/25 16:46 Blood Pressure 114/73 02/05/25 16:46 Pulse Oximetry 94 L 02/05/25 16:46 Oxygen Delivery Method Room Air 02/05/25 16:46 Temperature 98.3 F 02/05/25 16:46 Pulse Rate 90 02/05/25 16:46 Respiratory Rate 18 02/05/25 16:46 Blood Pressure 114/73 02/05/25 16:46 Pulse Oximetry 94 L 02/05/25 16:46 Oxygen Delivery Method Room Air 02/05/25 16:46 Medical Decision Making MDM Narrative Medical decision making narrative: Patient presents from [facility] fingerstick blood sugar was noted to be 83. There is concern per staff and resident who witnessed her that this may be attention seeking behavior. The patient initially stated that she had some low back pain however on examination there is no signs of trauma and no pain on palpation. When I directly asked her this concern she reports that she is not experiencing any pain or discomfort. We discussed her medical history, she does have a history of epilepsy but there is no reported seizure activity and another resident at the facility watched the patient lower herself down out of the wheelchair to lay on the ground. The patient is without any external evidence of trauma and has no consistent or acute complaint here on arrival. We discussed that she has DNR CC and after bedside medical evaluation I have recommended transport back to facility for observation. The patient reports no complaints of pain or discomfort no chest pain or shortness of breath, no abdominal pain or dysuria. She denies any back pain. It appears it is the facility's protocol to transport someone if they are found on the ground out of the chair. It appears there was a witness at the facility that saw the patient lower herself down from her own wheelchair. No seizure-like activity was reported and patient has a history per staff of doing this in the past for attention-seeking behavior. The patient is to followup with primary care physician in next 2-3 days or to return to the emergency department should any of the signs or symptoms worsen or new symptoms develop. Patient had questions answered. The patient agrees with the following Diagnosis and Treatment plan and the patient will be discharged to SNF Discharge Plan Discharge Chief Complaint: Fall Clinical Impression: Well adult health check, History of fall, Attention seeking behavior Patient Disposition: Home, Self-Care Time of Disposition Decision: 17:08 Condition: Good Prescriptions / Home Meds: No Action aspirin 325 mg tablet 325 mg PO DAILY brimonidine 0.2 % drops 1 drp OPHTHALMIC (EYE) BID carvedilol 12.5 mg tablet 12.5 mg PO Q12H cholecalciferol (vitamin D3) [Vitamin D3] 10 mcg (400 unit) tablet 400 unit PO DAILY divalproex 500 mg tablet,delayed release (DR/EC) 750 mg PO Q12H docusate sodium 100 mg capsule 100 mg PO BID PRN (Reason: constipation) duloxetine 60 mg capsule,delayed release(DR/EC) 60 mg PO DAILY ferrous sulfate 325 mg (65 mg iron) tablet 325 mg PO DAILY fluocinonide 0.05 % ointment 1 applic TOPICAL DAILY PRN (Reason: rash) sucralfate [Carafate] 100 mg/mL suspension 1 g PO ACHS insulin glargine [Lantus Solostar U-100 Insulin] 100 unit/mL (3 mL) insulin pen 15 unit subcut DAILY levothyroxine 100 mcg tablet 100 mcg PO DAILY loperamide 2 mg capsule 2 mg PO Q6H PRN (Reason: loose stool) guaifenesin [Mucinex] 600 mg tablet extended release 12hr 600 mg PO BID multivitamin Tablet 1 tab PO DAILY omeprazole 40 mg capsule,delayed release(DR/EC) 40 mg PO DAILY potassium chloride 20 mEq tablet,ER particles/crystals 20 meq PO DAILY tramadol 50 mg tablet 50 mg PO Q12H PRN (Reason: pain) cholecalciferol (vitamin D3) 25 mcg (1,000 unit) tablet 25 mcg PO DAILY calcium carbonate 200 mg calcium (500 mg) tablet,chewable 1,000 mg PO DAILY alum-mag hydroxide-simeth [Antacid-Antigas] 200-200-20 mg/5 mL suspension 10 ml PO Q3H PRN (Reason: GI bleeding prophylaxis) tizanidine 4 mg tablet 4 mg PO Q8H PRN (Reason: muscle spasticity) benzonatate 100 mg capsule 100 mg PO TID PRN (Reason: cough) meclizine 25 mg tablet 25 mg PO TID PRN (Reason: dizziness) Trulicity 0.75 mg/0.5 mL pen injector 0.75 mg SUBCUT DAILY ammonium lactate [AmLactin] 12 % lotion 1 applic topical BID triamcinolone acetonide 0.1 % cream 1 applic TOPICAL BID latanoprost 0.005 % drops 1 drp OPHTHALMIC (EYE) DAILY Rx Instructions: RT. EYE Hydrogel Gel 1 ea miscellaneous .MON., WEDS., FRI. nitrofurantoin monohyd/m-cryst 100 mg capsule 100 mg PO Q12H insulin degludec 100 unit/mL (3 mL) insulin pen 68 unit SUBCUT Q24H hydroxyzine HCl 25 mg tablet 25 mg PO Q8H dextromethorphan-guaifenesin [Chest Congestion Relief DM] 10-100 mg/5 mL syrup 10 ml PO Q6H PRN (Reason: cough) Print Language: Northern Irish Instructions: Normal Exam (ED), Fall Prevention (ED) Referrals: MAHIN BERNAL [Primary Care Provider, Family Practice] - 1 week
--- OUTSIDE RECORDS SUMMARY | 2025-02-05 17:22 | XMS_ITS | Clinical Summary ---
Author Organization [facility] Address [address] [place], [place] [address] Care Team Providers Care Disk Recordist Name Role Phone BasiliaTobias Lars PALACIOS Primary Care Provider [phone] Allergies Active AllergyReactionsCriticalityNoted DateCommentsMoxifloxacinRash,Swelling, Aaclyka3003/23/2015CephalexinHives,Swelling,Doqcrpa8003/23/2015TapentadolMental Status Cnctrw6410/31/2015 Medications MedicationSigDispense QuantityRefillsLast FilledStart DateEnd DateStatus metFORMIN [...] InformationValueDate RecordedSex Assigned at BirthNot on fileLegal InpSzluwy80/28/2015 9:26 AM EST Gender IdentityNot on fileSexual OrientationNot on file Last Filed Vital Signs Vital SignReadingTime TakenCommentsBlood Vrsfvwkd041/6909 3:09 PM EDT Fllii6768 3:09 PM EDTTemperature--Respiratory Nfno487705/02/2015 3:50 PM EDTOxygen Saturation--Inhaled Oxygen Concentration--Weight--Ljnlai651.1 cm (5' 5 )03/23/2015 12:42 PM ESTBody Mass Index-- Plan of Treatment Health MaintenanceDue DateLast DoneCommentsAnxiety Bgiwfitnz89/21/1981Depression Twfqvczna62/21/1981HIV Xxnpyrrus22/21/1981Hepatitis C Gmwefnrbb81/21/1981 DTaP,Tdap,Td Vaccine (1 - Tdap)1982Cervical Cancer Ikpyztcgc83/21/1984 Mammogram Uijzqszxq11/21/2003CT Mryyoknroxqx52/21/2008Cologuard (FIT-DNA) 02/07/20081440Inplbdqnngt79/21/2008Colorectal Cancer Vcfjmqyqc46/21/2008Fecal Occult Blood02/07/2008Lipid Cvjfxqohs47/21/6352Msfxmcivvrgue67/21/2008Pneumococcal Vaccine: 50+ (1 of 1 - PCV)2013Shingrix Vaccine (1 of 2)2013Diabetes Kzyvtboel38/04/, 03/23/2015Covid-19 Vaccine (1 - 2024- season) 2024Influenza Vaccine (#1)2024RSV Vaccine (1 - 1-dose 75+ series) 2038 Procedures Procedure NamePriorityDate/TimeAssociated DiagnosisCommentsHEMOGLOBIN P0KIbsnhjo 03/23/2015 2:21 PM EST Diabetes mellitus due to underlying condition with complication (HCC) Sensory ataxia Polyneuropathy (HCC) Bilateral foot-drop from Last 3 Months or Most Recently Relevant to Health Maintenance Results * (ABNORMAL) HGB A1C (03/23/2015 2:21 PM EST)ComponentValueRef RangeTest Method Analysis TimePerformed AtPathologist SignatureHemoglobin A1C10.8(H)4.3 - 5.6 % 03/23/2015 10:11 PM ESTCLEVELAND CLINIC UNION [facility]OSP[facility]IN LABORATORYComment: [place] Diabetes Association guidelines indicate that patients with HgbA1c in the range 5.7-6.4% are at increased risk for development of diabetes, and intervention by lifestyle modification may be beneficial. HgbA1c greater or equal to 6.5% is considered diagnostic of diabetes. Estimated Average Glucose>240mg/dL03/23/2015 10:11 PM ESTCLEVELAND CLINIC UNION [facility]OSP[facility] MAIN LABORATORYComment: eAG: (Estimated average glucose) is a calculated value from HgbA1c and is traveling sales representative of the average blood glucose level in the last 2-3 month period. Specimen (Source)Anatomical Location / LateralityCollection Method / Volume Collection TimeReceived TimeBlood specimen (specimen)WHOLE BLOOD SPECIMEN / Juuocop0103/23/2015 2:21 PM EST03/23/2015 2:26 PM EST Narrative Authorizing ProviderResult TypeResult StatusPayam SoltanzadehLABORATORYFinal ResultPerforming OrganizationAddressCity/State/ZIP CodePhone Number [facility] [address] [place] [address] from Last 3 Months or Most Recently Relevant to Health Maintenance Insurance Care Teams Team MemberRelationshipSpecialtyStart DateEnd Date Tobias Cui DO PCP - GeneralFamily Ylmctjnc82/28/15
--- OUTSIDE RECORDS SUMMARY | 2025-02-05 17:23 | XMS_ITS | Patient Health Record ---
Author Organization [facility] Address [address] [place] [address] [place] [address] Care Team Providers Care Farm Rancher Name Role Phone José Miguel Crouch;Jesse richey Primary Care Provider Un available Jose Field Unavailable [phone] Allergies Allergen (clinical drug ingredient) Drug/Non Drug [...] 2 diabetes bety itus with peripheral angiopathy (614529253) Type 2 diabetes mellitus with diabetic peripheral angiopathy without gangrene (E11.51) ActiveconfirmedProblemLong-term current use of insulin (654762514)prison (current) use of insulin (Z79.4)Xbnkebbraqrgicku17UawkpuwYtmvbuf of toe (304797972)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)Activeconfirmed Vital Signs Blood pressure diastolic 76 mm Hg 01/17/2025 Qpcdhv41 in01/17/2025lood pressure mm Hg01/17/20256790Kxttll400 lbs 08/05/2024BMI25.7908/05/2024 Encounters Encounter Location Date Provider Diagnosis [facility] [address] [facility] [address] 04/21/2024 [facility] [address] [place] [address]/ [facility] [address] [facility] [address]/04/2024[facility] [address] [facility] [address]/04/2024[facility] [address] [place] [address]/[facility] Armstrong term (current) use of insulin Z79.4 ; Type 2 diabetes mellitus with diabetic peripheral angiopa thy without gangrene E11.51 and Acquired absence of other left toe(s) Z89.422 [facility] [address] [place] [address]/02/2024 [facility] term (current) use of insulin Z79.4 ; Type 2 diabetes mellitus with diabetic peripheral angiopathy without gangrene E11.51 and Acquired absence of other left toe(s) Z89.422[facility] [id number] [place] [address] [place] [address]/03/2024[facility] Assessments Encounter Date Diagnosis (ICD Code) [...] amount of time until shoes are worn 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 The patient signed the authorization for payment and warranty statement, instruction on break in and care form for the shoes, as well as the [facility] Medicare DMEPOS supplier standard form. The patient [...] End Date Medicare Part B J-15 Part [facility] Claims [address] [place] [address] [id number], Jonnaelf - patient is the insured[facility] [address] [place] [id number], TrudySelf - patient is the insuredMedicaid [place] [facility] F[facility] [address] [place], [place] [id number], Jonnaelf - patient is the insured Medical (General) History Medical History History ICD Code type II diabetes glaucomaidiopathic epilepsyanemiahypokalemiaanxietydepressionspinal stenosis hyperlipidemiahypothyroidismcardiac murmursleep apneapolyneuropathyhypertension asthmaGERDSurgical History Surgery Date(Month/Year) heart surgery neck surgeryHospitalization History Reason Date(Month/Year) see surgical hx
--- OUTSIDE RECORDS SUMMARY | 2025-02-05 17:23 | XMS_ITS | Clinical Summary ---
Author Organization [facility] Healthcare Address [address] [place] [address] Care Team Providers Care Private Branch Exchange Service Adviser Name Role Phone Aamir Purcell MD Primary Care Provider [phone] Allergies Active AllergyReactionsCriticalityNoted DateCommentsCephalexinHives,Itching, Unknown,Rash,EjwhwfqrGken88/15/2012 burning MoxifloxacinItching,Unknown,Rash,RudeidozYllu46/15/2012 Abdominal pain Peg 0348-Vmt-Vldfn-Nacl-BkmkvcYcri46/11/0687FpuuwjrioiQgnriqnBgmu74/19/2014 Mental status changes Passed out Medications MedicationSigDispense [...] each day at the same timeActive HYDROcodone-acetaminophen ([place]) 5-325 MG tablet Take 1 tablet by [...] of both eyes, moderate stage06/28/2024Left posterior capsular bjhqvlayueyxb40/12/2025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 ewxqkuya35/12/2025Dry eyes06/28/2024 Encounters DateTypeDepartmentCare WbtnIgtpzsmqbtg22/19/2025bstract [facility] [address] [facility] [address] [place] [address] Aamir Purcell MD 12/23/2024bstract NOMS [facility] [address] [facility] [address] [place] [address] Aamir Purcell MD 12/22/2024[facility]phone [facility] [address] [facility] [address] [place] [address] [place] Chávez, ARLETTE 12/13/2024Refill [facility] [address] [facility] [address] [place] [address] Mariam JanyMURPHY Gastroesophageal reflux disease without esophagitis (Primary Dx); Cough, unspecified type; Acquired qzneptgyxghutd17/21/2025Telephone [facility] [address] [facility] [address] [place] [address] [place] Chávez, ARLETTE 11/30/2024Telephone [facility] [address] [facility] [address] [place] [address] [place] Chávez, ARLETTE 11/23/2024Telephone [facility] [address] [facility] [address] [place] [address] [place] Chávez, ARLETTE 11/23/2024Telephone [facility] [address] [facility] [address] [place] [address] Arias Cruz MD 11/22/2024[facility] [address] [facility] [address] [place] [address] Maine Chávez, ARM REST BUILDER from Last 3 Months Social History Tobacco UseTypesPacks/DayYears UsedDateSmoking Tobacco: Never Assessed CommentsUnknownSex and Gender InformationValueDate RecordedSex Assigned at Not on fileLegal WkqEnwpgv52/15/2023 6:48 PM EDTGender IdentityNot on fileSexual OrientationNot on file Last Filed Vital Signs Vital SignReadingTime TakenCommentsBlood Pressure--Pulse--Temperature-- Respiratory Rate--Oxygen Saturation--Inhaled Oxygen Concentration--Krcvza73.9 kg (152 lb)04/03/2021 12:00 PM IVFCvzuiv024.1 cm (5' 5 )04/26/2022 12:00 PM ESTBody Mass Index25.29004/03/2021 12:00 PM EST Plan of Treatment Not on file Insurance Care Teams Team MemberRelationshipSpecialtyStart DateEnd Date Aamir Purcell MD [address] [place] [address] PCP - GeneralFamily Medicine08/12/22
--- OUTSIDE RECORDS SUMMARY | 2025-02-05 17:23 | XMS_ITS | Clinical Summary ---
Author Organization [facility] Address [address], [address] [place] [address] Care Team Providers Care Sales Agent Protective Service Name Role Phone Migue Cole MD Primary Care Provider [phone] Allergies Active AllergyReactionsCriticalityNoted DateCommentsMoxifloxacin Hydrochloride HqtyUdw3112/02/20116941NpfsozdwqkFyhfKjj33/15/1146HcxtvsvxzliiNrjfMwsg52/11/2017Peg 3680-Ylw-Fdjee-Nacl-UjvajfZiyt71/11/2017TapentadolOther (See Comments)Medium 10/31/2015 Mental status changes Medications [...] Active Problems ProblemNoted DateDiagnosed DateS/P cervical spinal uigepu7904/02/2022nemia due to blood loss09/26/2021cute respiratory qrwhfmg7209/25/2021Ventilator associated jcwkljkoa32/06/2022Tracheostomy care09/22/2021Tracheostomy in place09/22/2021 Delirium due to multiple eyvudyebww85/02/2022ischarge planning gdtugv2009/16/2021 CSF ljocispqqp39/26/2022ther cranial cerebrospinal fluid leak08/22/2021 Qcpvtfsyltmhec08/29/3041FDGDC83/28/2022Metabolic fbgtrpzfsutvfa29/14/2022MSSA (methicillin susceptible Staphylococcus aureus) cjwatwossk65/14/2022epsis 06/29/2021taphylococcus aureus lwtvnmimxk30/13/2642Jzabpypuvohnnx42/13/2022 Mkdaqcwjjha67/13/2022Type 2 diabetes mellitus with diabetic polyneuropathy 06/29/2021rimary hoqubdkheria53/13/2022ltered mental state06/28/2021ellulitis of left didgab8907/16/2018EncephalopathyToxic metabolic 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)Upper GI [...] InformationValueDate RecordedSex Assigned at BirthNot on fileLegal OduEtttph98/10/2013 10:05 AM ESTGender IdentityNot on fileSexual OrientationNot on file Last Filed Vital Signs Vital SignReadingTime TakenCommentsBlood Wrmbmrau003/8301/23/2023 10:54 AM EST Gsalc203701/23/2023 10:54 AM CGCBvvtvoaqmdq83.6 ??C (97.9 ??F)01/23/2023 10:54 AM ESTRespiratory Gibg828403/26/2022 10:54 AM ESTOxygen Gjrlkmmuxe81%01/23/2023 10:54 AM ESTInhaled Oxygen Concentration--Wiulzg60.2 kg (135 lb)01/23/2023 10:54 AM GYKZlabtv806.1 cm (5' 5 )08/15/2022 9:03 AM EDTBody Mass Index22.47008/15/2022 9:03 AM EDT Plan of Treatment Health MaintenanceDue DateLast DoneCommentsDepression Zlhfww3802/06/1975HIV screen 1978Diabetic retinal exam1981Hepatitis C tihxvq9702/06/1981 DTaP/Tdap/Td vaccine (1 - Tdap)1982Pap smear02/07/1984Cervical cancer ndctym8902/06/1993HPV (without or with Pap)02/06/19939495Clrpifdnylh71/21/2008Fecal- DNA (Cologuard): Average risk02/07/2008Sigmoidoscopy/CT wxiyemryqaxp84/21/2008 Shingles vaccine (2 of 3)12/30/Diabetic Alb to Cr ratio (uACR) test06/25/reast cancer vxluls80/16/Pneumococcal 50+ years Vaccine (2 of 2 - PCV)/, 07/29/20129266Iepres62/12/2023 06/28/2021, 06/28/2016, 06/25/2013, Additional history existsDiabetic foot exam /olorectal Cancer Sxbxpg2507/24/2022FIT/FOBT: Average risk /1C test (Diabetic or Prediabetic)/, 06/28/2021, 07/19/2017, Additional history existsGFR test (Diabetes, CKD 3-4, OR last GFR 15-59)/12/2021, 09/25/2021, 09/24/2021, Additional history existsAnnual Wellness Visit (Medicare)01/13/2023Respiratory Syncytial Virus (RSV) or age 60 yrs+ (1 - Risk 60-74 years 1-dose series)2023Flu vaccine (#1)/, 11/04/2013COVID-19 Vaccine ( - season)2024Pneumococcal 0-49 years MdktxwvYgrbqfmodhxn38/20/2020, 07/29/2012Hepatitis A vaccineAged OutNo longer eligible based [...] LotSystem Spnl Seal 3ml Exact Duraseal - [id number] Implanted:Qty: 1 [facility] 07[facility]06[facility]: Spine CervicalINTEGRA LIFESCIENCES BRETT-[id number] / / Kit Bne Grft Xsm 1.4cc Rhbmp-2 Absrb Cllgn Spng Infuse - [id number] Implanted:Qty: 1 on 09/25/2021 [facility]: Spine CervicalMEDTRONIC SPINALGRAFT TECH-WD02/16/[id number] / [id number] / [id number] Cellr Bne Matrx Influx Sparc 5cc - [id number] Implanted:Qty: 1 on 09/25/2021 [facility]: Spine CervicalISTO TECHNOLOGIES INC-WD05/04/[id number] / [id number] / [id number] Cellr Bne Matrx Influx Sparc 5cc - [id number] Implanted:Qty: 1 on 09/25/2021 [facility]: Spine CervicalISTO TECHNOLOGIES INC-WD05/04/[id number] / [id number] / [id number] Spnl L34mm Fqc19un Occipitocervical Up Thor Multiaxial - [id number] Implanted:Qty: 2 on 09/25/2021 [facility]: Spine CervicalMEDTRONIC SOFAMOR DANEK-[id number] / / Bishnu Spnl L25mm Dia3.5mm Occipitocervical Up Thor Precut - [id number] Implanted:Qty: 2 on 09/25/2021 [facility]: Spine CervicalMEDTRONIC SOFAMOR DANEK-[id number] / / Set Screw Spinal M6 - [id number] Implanted:Qty: 4 on 09/25/2021 [facility]: Spine CervicalMEDTRONIC SOFAMOR DANEK-[id number] / / Procedures Procedure NamePriorityDate/TimeAssociated DiagnosisCommentsBASIC METABOLIC PANEL W/ REFLEX TO MG FOR LOW BThsditm24/11/2022 2:38 AM EDT HEMOGLOBIN U5UFimnhwx24/24/2022 7:34 AM EDT OCCULT BLOOD SCREENStat Sunquest Label print07/24/2021 2:30 PM EDT LIPID CBZHENyxifie22/12/2022 9:38 PM EDT MICROALBUMIN, BWAqgorko77/09/2014 7:05 AM EDT from Last 3 Months or Most Recently Relevant to Health Maintenance Results * (ABNORMAL) Basic Metabolic Panel w/ Reflex to MG (09/27/2021 2:38 AM EDT) ComponentValueRef RangeTest MethodAnalysis TimePerformed AtPathologist HbxxeoozyTtmqjhm471(H)70 - 99 mg/dL09/27/2021 2:38 AM EDTMERCY LABORATORIESBUN 126 - 20 mg/dL09/27/2021 2:38 AM EDTMERCY LABORATORIESCreatinine0.540.50 - 0.90 mg/dL09/27/2021 2:38 AM EDTMERCY LABORATORIESCalcium9.18.6 - 10.4 mg/dL 09/27/2021 2:38 AM EDTMERCY DFFRLLRQXXLTBqvmzg487984 - 144 mmol/L09/27/2021 2:38 AM EDTMERCY LABORATORIESPotassium3.2(L)3.7 - 5.3 mmol/L09/27/2021 2:38 AM EDTMERCY TBMZZYEKTGOGRrypmqvj28868 - 107 mmol/L09/27/2021 2:38 AM EDTMERCY VLCJMVOCTLNJZX47535 - 31 mmol/L09/27/2021 2:38 AM EDTMERCY LABORATORIESAnion Pkm131 - 17 mmol/L09/27/2021 2:38 AM EDTMERCY LABORATORIESGFR Non->60>60 mL/min09/27/2021 2:38 AM EDTMERCY LABORATORIESGFR >60>60 mL/min09/27/2021 2:38 AM EDTMERCY LABORATORIESGFR Comment 09/27/2021 2:38 AM EDTMERCY LABORATORIESComment: Average GFR for 50-59 years old: 93 mL/min/1.73sq m Chronic Kidney Disease: <60 mL/min/1.73sq m Kidney failure: <15 mL/min/1.73sq m ? eGFR calculated using average adult body mass. Additional eGFR calculator available at: ? http://www.UBmatrix/multiple_crcl_2012.htm ? Specimen (Source)Anatomical Location / LateralityCollection Method / Volume Collection TimeReceived TimeBLOOD SPECIMEN / Ljopkqg0709/27/2021 2:38 AM EDT 09/27/2021 2:42 AM EDT Narrative Authorizing ProviderResult TypeResult StatusDarleen Carmona MDCHEMISTRY ORDERABLES Edited Result - FinalPerforming OrganizationAddressCity/State/ZIP CodePhone Number [facility] [address] [place] [address], [facility] [phone] * Hemoglobin A1C (09/09/2021 7:34 AM EDT)ComponentValueRef RangeTest Method Analysis TimePerformed AtPathologist SignatureHemoglobin A1C5.14.0 - 6.0 % 09/09/2021 7:34 AM EDTMERCY LABORATORIESEstimated Avg Wdlncjz359up/dL 09/09/2021 7:34 AM EDTMERCY LABORATORIESComment: The ADA and AACC recommend providing the estimated average glucose result to permit better patient understanding of their HBA1c result. Specimen (Source)Anatomical Location / LateralityCollection Method / Volume Collection TimeReceived Time09/09/2021 7:34 AM EDT09/09/2021 8:11 AM EDT Narrative Authorizing ProviderResult TypeResult StatusChris Bascarlett MDCHEMISTRY ORDERABLES Final ResultPerforming OrganizationAddressCity/State/ZIP CodePhone Number [facility] [address] [place] [address], [facility] [phone] * (ABNORMAL) OCCULT BLOOD SCREEN (07/24/2021 2:30 PM EDT)ComponentValueRef Range Test MethodAnalysis TimePerformed AtPathologist SignatureOccult Blood, Stool #1POSITIVE(A)SAKELOCG07/07/2022 2:30 PM EDTMERCY LABORATORIESDate, Stool #1 6,2,4260507/24/2021 2:30 PM EDTMERCY LABORATORIESTime, Stool #[id number] 2:30 PM EDTMERCY LABORATORIESSpecimen (Source)Anatomical Location / Laterality Collection Method / VolumeCollection TimeReceived TimeSTOOL SPECIMEN / Unknown 07/24/2021 2:30 PM EDT07/25/2021 12:13 AM EDT Narrative Authorizing ProviderResult TypeResult StatusXin Grove MDBODY FLUIDS AND STOOLS ORDERABLESFinal ResultPerforming OrganizationAddressCity/State/ZIP CodePhone Number [facility] [employer] [address] [place] [address], [facility] [phone] * LIPID PANEL (06/28/2021 9:38 PM EDT)ComponentValueRef RangeTest MethodAnalysis TimePerformed AtPathologist BjtyxtxnfFltplykmcqm419<200 mg/dL06/28/2021 9:38 PM EDTMERCY LABORATORIESComment: Cholesterol Guidelines: <200 Desirable 200-240 ??Borderline >240 Undesirable HDL71>40 mg/dL06/28/2021 9:38 PM EDTMERCY LABORATORIESComment: HDL Guidelines: <40 Undesirable 40-59 ?Borderline >59 Desirable LDL Vkjueqqfycl170 - 130 mg/dL06/28/2021 9:38 PM EDTMERCY LABORATORIESComment: [...] / Volume Collection TimeReceived TimeBLOOD SPECIMEN / Sthdlvj2806/28/2021 9:38 PM EDT 06/28/2021 9:38 PM EDT Narrative Authorizing ProviderResult TypeResult StatusSubrabola Jewell MDCHEMISTRY ORDERABLESFinal ResultPerforming OrganizationAddressCity/State/ZIP CodePhone Number [address] [address], [facility] [phone] * Microalbumin, Ur (06/25/2013 7:05 AM EDT)ComponentValueRef RangeTest Method Analysis TimePerformed AtPathologist SignatureAlbumin Urine12<21 mg/L 06/25/2013 9:11 PM EDTMHPN LABCreatinine, Ur166.139.0 - 259.0 mg/dL06/25/2013 9:11 PM EDTMHPN LABComment: The reference range and other method performance specifications have not been established for this body fluid. ??The test result must be integrated into the clinical context for interpretation. Microalb/Publication Distributor. Rsqew0ury/mg creat06/25/2013 9:11 PM EDTMHPN LABUrine Microalbumin Hovhew4206/25/2013 9:11 PM EDTMHPN LABComment: REFERENCE RANGE NORMAL ? = 0 - 13 ?? mcg/mg creat BORDERLINE = 14 - 30 ??mcg/mg creat ABNORMAL = >30 mcg/mg creat Performed at [place] [address] Specimen (Source)Anatomical Location / LateralityCollection Method / Volume Collection TimeReceived Time06/25/2013 7:05 AM EDT06/25/2013 7:06 AM EDT Narrative Authorizing ProviderResult TypeResult StatusDanitorsten ZIMMERMAN ORDERABLES Edited Result - FinalPerforming OrganizationAddressCity/State/ZIP CodePhone Number [facility] [address] [place] [address], [facility] [phone] [facility] from Last 3 Months or [...] MemberRelationshipSpecialtyStart DateEnd Date Migue Cole MD [address] [place] [address] PCP - GeneralInternal Medicine08/14/21
--- OUTSIDE RECORDS SUMMARY | 2025-02-05 17:23 | XMS_ITS | Clinical Summary ---
Author Organization [facility] Address [address] [place] [address] Care Team Providers Care Soil Analyst Name Role Phone Aamir Purcell DO Primary Care Provider [phone] Social History Tobacco UseTypesPacks/DayYears UsedDateSmoking Tobacco: Never AssessedUT Safety & EnvironmentAnswerDate RecordedFear of Current or Ex-PartnerNot on file 04/10/2023Emotionally AbusedNot on file04/10/2023hysically AbusedNot on file 04/10/2023Sexually AbusedNot on file4Physically or Sexually AbusedNot on file04/10/2023CommentsUnknownSex and Gender InformationValueDate RecordedSex Assigned at BirthNot on fileLegal JzsEjjwyf39/29/2022 10:27 PM EDT Gender IdentityNot on fileSexual OrientationNot on file Last Filed Vital Signs Vital SignReadingTime TakenCommentsBlood Ytkmbcqz171/7307 2:28 PM EDT Pulse--Cjglrogqscc77.1 ??C (98.7 ??F)08/26/2018 2:24 PM EDTRespiratory Rate-- Oxygen Saturation--Inhaled Oxygen Concentration--Ohkmeo30.9 kg (152 lb) 08/26/2018 2:24 PM LGTVdgdsp177.1 cm (5' 5 )08/26/2018 2:24 PM EDTBody Mass Index25.2907 2:24 PM EDT Plan of Treatment Health MaintenanceDue DateLast DoneCommentsCT Qscdtfbyzypv1963Colonoscopy 1963Colorectal Cancer Xqbpzpcmw1963FIT-DNA1963FIT1963 FOBT1963Medicare Annual Wellness (AWV)1965 4092Elvarcpmitpyu1963 Diabetes: Retinopathy Khhryaoop92/21/1973Depression Qhzwnqzih69/21/1975Diabetes: Urine Protein Qpopqcnro39/21/1982Pap Smear02/07/1984Adult Fjpkdzg6002/06/1985 Cervical Cancer Xgdfobqrn73/21/1993HPV/Xrqgqf2902/06/19936890Bntbcifwx94/21/2003Zoster Vaccines (1 of 2)Diabetes: Hemoglobin A1C10/11/2018 07/11/2018COVID-19 [...] complete this topic Procedures Procedure NamePriorityDate/TimeAssociated DiagnosisCommentsHEMOGLOBIN P8JMnvuz 07/11/2018 6:08 AM EDT from Last 3 Months or Most Recently Relevant to Health Maintenance Results * (ABNORMAL) Hemoglobin A1C (07/11/2018 6:08 AM EDT)ComponentValueRef RangeTest MethodAnalysis TimePerformed AtPathologist SignatureHemoglobin A1C8.9(H)4.0 - 6.0 %LAB CONVERSIONSEstimated Average Cxmwkfp333(H)70 - 126 mg/dLLAB CONVERSIONSSpecimen (Source)Anatomical Location / [...] DateEnd Aamir Navarrete DO [address] [place] [address] [facility]10/19/21
--- OUTSIDE RECORDS SUMMARY | 2025-02-05 17:23 | XMS_ITS | Clinical Summary ---
Author Organization [facility] Address [address] [place] [address] Care Team Providers Care Metal Ceiling Hanger Name Role Phone Aamir Purcell DO Primary Care Provider [phone] Adilson Hernandez MD Unavailable Kartik Mejia MD Unavailable [phone] Tisha Arriaga MD Unavailable Luis Miguel Kaur MD Unavailable [phone] Chris Zavala OD Unavailable Unavailable Allergies Active AllergyReactionsCriticalityNoted DateCommentsMoxifloxacinRashHigh 10/28/20169281CplgbxwjhbVtqpjvzWwti55/11/2017 burning ErpfycirkjXodu01/11/2017 Passed out Medications MedicationSigDispense QuantityRefillsLast FilledStart DateEnd [...] mL 05/15/2021ctive Active Problems ProblemNoted DateDiagnosed DateChronic keqscicf46/10/2021Internal derangement of right knee09/26/2020rimary open angle glaucoma (POAG) of right eye, severe stage04/20/2020 Overview (04/20/2020): Added automatically from request for surgery Primary open angle glaucoma (POAG) of left eye, severe stage12/31/2019 Overview (12/31/2019): Added automatically from request for surgery [id number] Fteeigpcdsgrg40/06/2020Nuclear sclerotic cataract of left eye12/16/2018 Overview (12/16/2018): Added automatically from request for surgery [id number] CIDP (chronic inflammatory demyelinating polyneuropathy)06/24/2018Vitamin D knwiprwslm27/31/2019DDD (degenerative disc disease), hrlicvgj50/31/2019 Osteoarthritis cervical spine03/19/2018Postmenopausal xitqmv0903/19/2018Osteopenia determined by x-ray03/19/2018Primary osteoarthritis of left wrist03/19/2018 Primary osteoarthritis of right wrist03/19/2018Primary osteoarthritis of both knees03/19/2018Primary osteoarthritis of both hips03/19/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 03/19/2018Neuropathy of hand02/16/20180801Tofnqah92/06/2018Disorder of bone and ezkduxfce14/06/2018History of Raynaud's aisynytp50/06/2018Bilateral hand pain 01/22/2018Chronic pain of both knees01/22/2018Long term current use of non- steroidal anti-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 (NSAID)01/22/2018Alkaline phosphatase elevation 01/22/20187536Qgpdpl90/06/4129Nqmmfsezdmz73/06/2018Chronic pain of both shoulders 01/22/2018Bilateral biceps /06/2018Tendonitis of both rotator cuffs 01/22/2018Bilateral wrist pain01/22/2018Osteoarthritis of both hands01/22/2018 Hip pain, right01/22/2018Mixed sxxqmvniiyjqob71/30/2018Diabetes mellitus 10/16/2017Chest pain10/09/2017 Assessment & Plan (10/10/2017 11:24 AM EDT): Seen by cardiology ACS ruled out - Enzymes <0.02 x4 sets Continue medical management Follow-up with cardiology as outpatient Dorheepi04/21/2018MGUS (monoclonal gammopathy of unknown significance)03/16/2017 Assessment & Plan (10/10/2017 11:26 AM EDT): Per history - Follow up with hematology/oncology as outpatient 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 involvement without evidenceof mnheqpfe35/26/2018Fracture of third toe, left, vkdcyb1902/15/2016Closed displaced fracture of first metatarsal bone of left foot with routine gtbxtmj4004/17/20158252Ktiucnzdodfx26/05/2014Coronary atherosclerosis 06/24/2012Diaphragmatic fqpiwi8306/24/2012Gastroesophageal reflux disease 06/24/20126358Swotmeic33/08/9399Bczqvklnumemhr03/08/2013Irritable bowel syndrome 06/24/2012sthma Assessment & Plan (10/10/2017 [...] left, initial encounter Knee injury, right, initial umagkqvyu38 Immunizations ImmunizationAdministration DatesNext DueInfluenza Yiqriqd5211/04/2013Influenza Vaccine 0.5ml10/07/2019Influenza Vaccine, Shdhvwafa41/18/2014Pneumococcal Polysac 23-Valent Fnnrltd1307/29/2012Pneumococcal Vaccine, Cfoqurxmnjm11/20/2020 Zoster Vaccine, Live11/04/2013 Family History Medical HistoryRelationNameCommentsCancer- OtherFatherDiabetesFatherDiabetes MotherHeart Disease - OtherMotherHypertensionMotherStrokeMotherBreast Cancer OtherCancer- OtherOtherDiabetesOtherHeart Disease - OtherOtherHypertensionOther StrokeOtherBlindnessNeg HxGlaucomaNeg HxRelationNameStatusCommentsFatherDeceased MotherDeceasedOther Social History Tobacco UseTypesPacks/DayYears UsedDateSmoking Tobacco: QnilnrCcbmusiohq6Jsit: 1997Smokeless Tobacco: Never Tobacco Cessation:Counseling Given: No Alcohol UseStandard Drinks/WeekCommentsNo0 (1 standard drink = 0.6 oz pure alcohol)CommentsNoSex and Gender InformationValueDate RecordedSex Assigned at BirthNot on fileLegal WzyVibsys87/04/2015 3:05 PM ESTGender Identity Bqgnlp3910/15/2016 6:49 AM EDTSexual OrientationNot on file Last Filed Vital Signs Vital SignReadingTime TakenCommentsBlood Xkcezrmh691/6303 3:31 PM EDT Yoydw4618 3:31 PM RVYQnvejufazmu57.2 ??C (97.2 ??F)05/11/2021 1:31 PM EDTRespiratory Biww0287 3:31 PM EDTOxygen Cobfdnzutp34%01/18/2021 8:57 AM ESTInhaled Oxygen Concentration--Xopgrl85.3 kg (155 lb)05/08/2021 1:53 PM EDT Rgyffc807.4 cm (5' 5.5 )05/08/2021 1:53 PM EDTBody Mass Index25.403 1:53 PM EDT Plan of Treatment Health MaintenanceDue DateLast DoneCommentsDIABETIC FOOT EXAM1963TETANUS 1963HIV SCREENING HTKTXDVDLW97/21/1978TDAP (ADULT)1982CERVICAL CANCER SCREENING HHNHXLEELV50/21/1984COLORECTAL CANCER SCREENING DISCUSSION 02/07/2008ZOSTER (SHINGLES) VACCINE (2 of 3)12/30/201309/MAMMOGRAM SCREENING DIYMKNJKVP46/16/201902/EYE EXAM/05/2017PNEUMOCOCCAL VACCINE SERIES (2 of 2 - PCV)/, 07/29/2012HBA1C TEST /03/2021, 03/15/2021, 09/01/2020, Additional history existsLIPIDS /, 09/01/2020, 05/15/2020, Additional history existsURINE MICROALBUMIN TEST/, 09/01/2020, 05/15/2020, Additional history existsCOVID-19 VACCINE ( - 2024- season)2024INFLUENZA VACCINE (#1)/, 11/04/2013, 11/04/2013RSV VACCINE (1 - 1-dose 75+ series)2038HEPATITIS C VIRUS OTKKRTYSNJouckhslb82/06/2018, 03/06/2017 PNEUMOCOCCAL VACCINE KKSDGEFtsrjdloacqt67/20/2020, 07/29/2012POTASSIUM Howwskjyazld81/27/2022, 01/13/2021, 09/01/2020, Additional history existsTSH Jasbabfesrfu74/27/2022, 09/01/2020, 03/13/2020, Additional history existsHEP B VACCINEAged OutNo longer eligible based on patient's age to complete this topic Medical Devices ImplantedTypeAreaManufacturerDevice IdentifierShelf Expiration DateModel / Serial / LotLens Au00t0 D 23.5 - [id number] Implanted:Qty: 1 on 12/23/2018 by Grace Washington MD at [facility] REV LOCLeft: EyeALCON [id number]/[id number] D 23.5 / [id number] / Implant Opth 250sq Mm Jo 1 Qdrnt Ins Fx Sut Hl Rcs Knt Cpb - [id number] Implanted:Qty: 1 on 02/23/2020 by Grace Washington MD at [facility] REV LOCLeft: Eye[employer]VANCED [employer] (IMANI)[id number] / [id number] / Osc Tissue Cornea Padmini [id number] Implanted:Qty: 1 on 02/23/2020 by Grace Washington MD at [facility] REV LOCLeft: [facility] EYE BANK [facility] [place]08/16/2020GLYCERIN / / [id number] Procedures Procedure NamePriorityDate/TimeAssociated DiagnosisCommentsHC CREATININE NOT LBDZOFyubfku52/27/2022 10:50 AM EST Type 1 diabetes mellitus with diabetic neuropathy HEMOGLOBIN F7JImzpdwj89/27/2022 8:58 AM EST Type 1 diabetes mellitus with diabetic neuropathy TSH W/FT4 KHMCOGVyvdxue15/27/2022 8:58 AM EST Type 1 diabetes mellitus with diabetic neuropathy Acquired hypothyroidism COMPREHENSIVE METABOLIC NIWAXXychwct72/27/2022 8:58 AM EST Type 1 diabetes mellitus with diabetic neuropathy LIPID PANEL W CALCULATED KLBUckvmik05/27/2022 8:58 AM EST Type 1 diabetes mellitus with diabetic neuropathy HEPATITIS A, B, NVmdcfgb2018 4:29 PM EST Cervicalgia Disorder of bone [...] Fatigue, unspecified type History of Raynaud's syndrome 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 of non-steroidal anti-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 (NSAID) Alkaline phosphatase elevation Type 1 diabetes mellitus with diabetic neuropathy DIABETIC EYE EXAM (OUTSIDE)Nopoenr7306/20/2017MAMMO SCREENING BILATERALRoutine 04/04/2017 12:46 PM EST Screening mammogram, encounter for from Last 3 Months or Most Recently Relevant to Health Maintenance Results * (ABNORMAL) MICROALBUMIN/CREATININE RATIO (03/15/2021 10:50 AM EST)Component ValueRef RangeTest MethodAnalysis TimePerformed AtPathologist Signature CREATININE, MG/DL, MISPU506.5MG/DL[address]IONComment:NO NORMAL VALUES ESTABLISHED FOR RANDOM SPECIMENS Microalbumin, Urine, Jlgqpp498.1(H)0 - 16.7 mg/LG[address] ST[address]ETMICROALBUMIN/CREATININE ZAKUB404.2(H)1.3 - 30.0 mg MALB/g [address]Comment: Testing performed at [place], [place] [address]Odpbvomn (Source)Anatomical Location / LateralityCollection Method / VolumeCollection TimeReceived Time03/15/2021 10:50 AM EST03/15/2021 11:00 AM EST Narrative Authorizing ProviderResult TypeResult StatusLuis Miguel Kaur MDBODY FLUIDS & STOOLS ORDERABLESFinal ResultPerforming OrganizationAddressCity/State/ZIP Code Phone Number [place] [phone] * (ABNORMAL) TSH W/FT4 REFLEX (03/15/2021 8:58 AM EST)ComponentValueRef Range Test MethodAnalysis TimePerformed AtPathologist SignatureTSH, Reflex FT47.180 (H)0.46 - 4.68 uIU/ML[address] Comment:Testing performed at [place], [place] [address] Specimen (Source)Anatomical Location / LateralityCollection Method / Volume Collection TimeReceived TizzJjfzr38/27/2022 8:58 AM EST03/15/2021 9:00 AM EST Narrative Authorizing ProviderResult TypeResult StatusLuis Miguel Kaur MDENDOCRINOLOGYFinal ResultPerforming OrganizationAddressCity/State/ZIP CodePhone Number [place] [phone] * (ABNORMAL) HEMOGLOBIN A1C (03/15/2021 8:58 AM EST)ComponentValueRef RangeTest MethodAnalysis TimePerformed AtPathologist SignatureHEMOGLOBIN A1C11.7(H)0 - 6 %[facility] - [address] - [place] Comment: NORMAL <5.7% PREDIABETES 5.7-6.4% DIABETES 6.5% OR HIGHER Estimated Average Erxbdkh619gj/dLBUCELYRIA MEMORIAL [facility] - [address] - [facility] (Source)Anatomical Location / Laterality Collection Method / VolumeCollection TimeReceived ZiszWvxss38/27/2022 8:58 AM EST03/15/2021 9:00 AM EST Narrative Authorizing ProviderResult TypeResult StatusTojudah Kaur MDHEMATOLOGY ORDERABLESFinal ResultPerforming OrganizationAddressCity/State/ZIP CodePhone Number [facility] - [address] - [place] [address] [place] [address] * (ABNORMAL) LIPID PANEL W CALCULATED LDL (03/15/2021 8:58 AM EST)ComponentValue Ref RangeTest MethodAnalysis TimePerformed AtPathologist SignatureCHOLESTEROL 226(H)107 - 217 MG/DL[address] TEVYCOGCASAO876(H)0 - 150 MG/DL[address]ETHDL NYRDTYSMULG6240 - 75 MG/DL[address]LDL CHOLESTEROL, AJLZIJMVOP989KH/DL[address]VLDL Cholesterol, Macixjdysn58(H)5.0 - 25 MG/DL [address]TCHOL/HDL RATIO, MANUAL ENTER4.71RATI[address]Comment: RISK ?TOTAL/HDL RATIO ?MEN ? WOMEN 1/2 AVERAGE ?3.43 ?3.27 AVERAGE ?4.97 ?4.44 2X AVERAGE ? 9.55 ?7.05 3X AVERAGE ?23.99 ? 11.04 Testing performed at [place], [place] [address] Specimen (Source)Anatomical Location / LateralityCollection Method / Volume Collection TimeReceived RbbjXtjzs00/27/2022 8:58 AM EST03/15/2021 9:00 AM EST Narrative Authorizing ProviderResult TypeResult StatusTodd M Natasha MDCHEMISTRY ORDERABLESFinal ResultPerforming OrganizationAddressCity/State/ZIP CodePhone Number [address] [place] [address] * (ABNORMAL) COMPREHENSIVE METABOLIC PANEL (03/15/2021 8:58 AM EST)Component ValueRef RangeTest MethodAnalysis TimePerformed AtPathologist SignatureGlucose 222(H)70 - 100 MG/DL[address] Comment: NORMAL <100 mg/dL PREDIABETES 101-126 mg/dL DIABETES 126 mg/dL or higher BUN26(H)7 - 20 MG/DL[address] CREATININE SERUM1.200.7 - 1.2 MG/DL[address]ODIUM139137 - 145 MMOL/[address]Potassium4.53.5 - 5.1 MMOL/[address]CHLORIDE10598 - 107 MMOL/[address]Comment:Please note: Triglyceride levels of 600mg/dL or higher may positively bias chloride results by approximately 2.1 mmolCALCIUM9.68.4 - 10.2 MG/DL[address]PROTEIN, TOTAL7.36.3 - 8.2 GM/DL[address]bumin3.93.5 - 5.0 G/dl[address]BILIRUBIN, TOTAL0.40.2 - 1.3 MG/DL[address] RSO3048 - 36 IU/[address]KALINE WBXEOEFRAZU46328 - 126 IU/[address]CARBON DIOXIDE (CO2)2422 - 30 MMOL/[address]A/G Ratio1.1(L)1.3 - 2.[address]T14<35 IU/LG[address]ETSTIMATED GFR, NON WEMD91fk/min/1.73sq.[address] StreetSTIMATED GFR, NLWAVMJH67 ml/min/1.73sq.[address]GFR COMMENTAverage GFR for 50-59 years old = 93.[address]Comment: Chronic Kidney disease, GFR = <60. Kidney failure, GFR = <15. The GFR estimate is not adjusted for extreme body surface area or acute process, nor has it been validated for women or ethnic groups other than and . Testing performed at [place], [place] [address] Specimen (Source)Anatomical Location / LateralityCollection Method / Volume Collection TimeReceived OhtiYdvpn06/27/2022 8:58 AM EST03/15/2021 9:00 AM EST Narrative Authorizing ProviderResult TypeResult StatusTodd M Darmody MDCHEMISTRY ORDERABLESFinal ResultPerforming OrganizationAddressCity/State/ZIP CodePhone Number [address] [address] * HEPATITIS A, B, C (01/22/2018 4:29 [...] with a HCV Nucleic Acid Amplification test (470070). PERFORMED AT [facility] Specimen (Source)Anatomical Location / LateralityCollection Method [...] Guarantor: Rose Georges TypeRelation to PatientDate of BirthHor[facility] Address[facility]/NpthmkNbzv1965 [address] [place] [address] * Guarantor: Rose Georges TypeRelation to PatientDate of [facility] Address[facility]/ZlsavzLzpd1965 [address] [place] [address] Advance Directives For more information, please contact: [phone] (7:30 AM - 6PM Jesusita/[facility], Friday-Friday) * Full Code (Latest Code Status on File) Date ActivatedDate [facility]10/09/2017 4:19 PM Care Teams Team MemberRelationshipSpecialtyStart DateEnd Date Aamir Purcell DO PCP - GeneralFamily Medicine03/06/17 Adilson Hernandez MD [address] [place] [address] Ophthalmology07/18/17 Kartik Mejia MD [address] [place] [address] Pain Vgnanrjq48/8/18 Tisha Arriaga MD [address] [place] [id number] NeurologistNeurology07/18/17 Luis Miguel Kaur MD [address] [place] [address] EndocrinologistEndocrinology, Diabetes & Metabolism03/06/17 Chris Zavala, OD [address] [place] [address] Optometry03/15/20
--- OUTSIDE RECORDS SUMMARY | 2025-02-05 17:23 | XMS_ITS | Patient Health Record ---
Author Organization [facility] [place] Address [address] [place] [address] Care Team Providers Care Sheeter Waxer Operator Name Role Phone Aamir Purcell DO Primary Care Provider Unavaila ble Reason For Referral No Information Problems Problem Type SNOMED Code ICD Code Onset Dates Problem Status W/U Status Risk Notes Problem Type II diabetes rosey litus without complication (365113312) Type 2 diabetes mellitus without complications (E11.9) ActiveconfirmedProblemFoot ulcer due to type 2 diabetes mellitus (2921386361400) Type 2 diabetes mellitus with foot ulcer (E11.621)ActiveconfirmedProblemChronic ulcer of foot (530556964)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)ActiveconfirmedProblemLong-term current use of insulin (806160660)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 (Z79.4)Activeconfirmed ProblemEncephalopathy (73107648)Encephalopathy (G93.40)ActiveconfirmedProblem Essential hypertension (06081079)Essential hypertension (I10)Activeconfirmed ProblemMitral valve disorder (93697082)MR (mitral regurgitation) (I34.0)Active confirmedProblemAcquired hypothyroidism (051245704)Acquired hypothyroidism (E03.9)ActiveconfirmedProblemThrombocytopenia (164803580)Thrombocytopenia (D69.6)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) (838338242)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)ActiveconfirmedProblemAgitation (32383509) Agitation (R45.1)ActiveconfirmedProblemChronic ulcer of great toe of left foot, limited to breakdown of skin (L97.521)ActiveconfirmedProblemUlcer of big toe (disorder) (118298065)Chronic ulcer of great toe of left foot with fat layer exposed (L97.522)ActiveconfirmedProblemType II diabetes mellitus without complication (574010270)Type 2 diabetes mellitus without complication, unspecified whether arabic translator insulin use (E11.9)ActiveconfirmedProblemParalysis of left vocal cord (275566805)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)Active confirmedProblemIschemic ulcer of toe of right foot with fat layer exposed (L97.512)ActiveconfirmedProblemGastroesophageal reflux disease (771913849) Gastroesophageal reflux disease, unspecified whether esophagitis present (K21.9) Activeconfirmed Plan Of Treatment No Information Insurance Providers Payer Name Payer Address Payer Phone Subscriber Number Group Number Insured Name Patient Relationship to Insured Coverage Start Date Coverage End Date [place] [address] [place] [address] [id number] Ladan Georges - patient is the [facility] [address] [address] [place] [address] [phone], TrudySelf - patient is the insured
--- OUTSIDE RECORDS SUMMARY | 2025-02-05 17:24 | XMS_ITS | Clinical Summary ---
Author Organization [facility] Address [address] [place] [address] Care Team Providers Care Atmospheric Drier Tender Name Role Phone Aamir Purcell DO Primary Care Provider Allergies Active AllergyReactionsCriticalityNoted DateCommentsMoxifloxacinItching,Swelling ,Rash,Other (See Comments)Low04/07/2017 Abdominal pain VcycodyuwxHudyhiiVrcw61/19/2018 burning MqutjtyrcpRcqkuev70/19/2018 Medications MedicationSigDispense QuantityRefillsLast FilledStart DateEnd DateStatus carvediloL [...] 05/28/2021ctive Active Problems ProblemNoted DateDiagnosed DateOther headache hbibnkvh52/02/2022 Assessment & Plan (05/20/2021 9:25 AM EDT): [...] monitor for improvement with treatment of these. Eughihw8405/19/2021 Assessment & Plan (05/20/2021 9:25 AM EDT): [...] disorder by virtue of having diabetes. Cervical lluqooztxwven42/01/2022Neck uoizcd527369Qhnsejjtvfmbc62/06/2020Foot ulcer02/25/2019 Overview (09/13/2020): OTHER PART OF FOOT Non-pressure chronic ulcer of other part of left foot with fat layer exposed 08/14/2017Non-pressure chronic ulcer of left lower leg with fat layer exposed 03/28/2017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 involvement without evidenceof crzwblup89/26/2018Non-pressure chronic ulcer of left ankle with fat layer ucyioqf1409/06/2016Non-pressure chronic ulcer of right ankle limited to breakdown of skin08/14/2016Type 2 diabetes mellitus with foot ulcer06/19/2016Fracture of third toe, left, bidnax6602/15/2016Closed displaced fracture of first metatarsal bone of left foot with routine dvohfvl1204/17/2015 Petjge7203/27/2015Chronic ulcer of great toe of left foot03/27/2015Glaucoma 03/27/2015High /08/7021Bsecyohlvosk13/08/2016Thyroid disorder 03/27/2015 Immunizations ImmunizationAdministration DatesNext DueInfluenza, Xooogodfssd78/20/2020 Pneumococcal, Vtaycqwsuhi47/20/2020 Family History Medical HistoryRelationCommentsPancreatic cancerFatherDiabetesMotherRelation StatusCommentsFatherDeceasedMotherDeceased Social History Tobacco UseTypesPacks/DayYears UsedDateSmoking Tobacco: ZoouscQwynltcacr77 04/07/1979 - 04/07/1989mokeless Tobacco: Never Comments:doesn't remember ho w much she smoked Alcohol UseStandard Drinks/WeekCommentsNot Currently0 (1 standard drink = 0.6 oz pure alcohol)rarelyCommentsNoSex and Gender InformationValueDate RecordedSex Assigned at BirthNot on fileLegal ExnQckqpa95/25/2014 4:56 AM EDT Gender JrxqoarcYcyatu67/18/2021 1:29 PM EDTSexual ZyrrbancvufVpwbksxe96/29/2021 3:56 PM EDT Last Filed Vital Signs Vital SignReadingTime TakenCommentsBlood Yduzxxic269/7904 5:11 PM EDT Nirfl7360 5:11 PM USEFqbpyihfggl70.8 ??C (98.3 ??F)05/29/2021 5:11 PM EDTRespiratory Wika7314 5:11 PM EDTOxygen Jxhrlircah86%05/29/2021 5:11 PM EDTInhaled Oxygen Concentration--Gbkpli12.2 kg (167 lb 15.9 oz)05/28/2021 5:00 AM XRMcrmQdoqpb317.1 cm (5' 5 )05/19/2021 9:04 AM EDTBody Mass Index27.96 05/19/2021 9:04 AM EDT Plan of Treatment Health MaintenanceDue DateLast DoneCommentsCT Uusfmptgolcr1963Colonoscopy 1963Colorectal Cancer Screening/Cqvvkcmxfc1963Fecal DNA1963 Fecal occult blood test (FOBT,FIT)1963Wellness Visit1966Depression Screening/Follow-Up (PHQ-2/9)1975HIV Qnmdcqaoj51/21/1978Hepatitis C Ilgbsfeli38/21/1981Tetanus/Diphtheria/Pertussis (1 - Tdap)1982Pap Smear 02/07/1984Cervical Cancer Nrhnxwnis45/21/1993HPV/Agoqse5202/06/1993Zoster Vaccines (2 of 3)Pneumococcal Vaccine: 50+ Years [...] / LotStent-07/27/2012 Implanted:Qty: 1 on 07/27/2012StentRight: EyeGLAUKOS [id number] ISTENT / [id number] / [id number]:Non-clinical testing has demonstrated that the iStent?? Trabecular Micro-Bypass Stent (Models [id number] and [id number]) is MR Conditional. A patient with this [...] above, the iStent?? Trabecular Micro-Bypass Stent (Models [id number] and [id number]) is not exp ected to produce a clinically significant temperature rise after 15 minutes of continuous scanning.In non-clinical testing, the image artifact caused by the device extends less than 15 mm from the device when imaged with a gradient echo pulse sequence and a 3.0 T MRI system Insurance * Guarantor: Cleo Georges LAccount TypeRelation to PatientDate of BirthPhone Billing AddressPersonal/AekbisJpdr1965 [phone] (Home) [address] [place] [id number] MemberSubscriberPlan / Payer (Effective 2022-Present)Name:Cleo Georges Member ID:[id number] Relation to Subscriber:SelfName:Cleo Georges Subscriber ID:[id number] Payer ID:Not on file Group ID:Not on file Type:Not on file [place] [facility] [place] [address] [place] [address] Advance Directives For more information, please contact: [phone] TypeDate RecordedPatient RepresentativeExplanationPower of Attorney05/28/2021 12:09 PMPower of Attorney05/28/2021 12:01 PM * Full Code - Unverified (Latest Code Status on File) Date ActivatedDate InactivatedComments05/18/2021 10:06 PM05/29/2021 7:56 PM Care Teams Team MemberRelationshipSpecialtyStart DateEnd Date Aamir Purcell DO [address] [place] [address] PCP - GeneralFamily Medicine03/28/17
== END 2025-02-05 18:25 | disposition home or self-care (01) ==
LOC: ER 17:19
PROVIDERS: Emergency Provider Emergency Medicine; PCP Family Medicine
DX: Z04.3 Encounter for examination and observation following other accident (principal); W05.0XXA Fall from non-moving wheelchair, initial encounter; R46.89 Other symptoms and signs involving appearance and behavior; E11.9 Type 2 diabetes mellitus without complications; Z79.4 Long term (current) use of insulin; Z79.85 Long-term (current) use of injectable non-insulin antidiabetic drugs
CPT/HCPCS: 36415; 82948; 99282